=== PATIENT | female | born 1955 | race Caucasian/White ===

== ENCOUNTER → 2017-01-17 | Outpatient (CLI) | payer MEDICARE ==
[~2017-01-17] MED LIST: CLON-378 PO; CLON0.3T4 PO; CLON1PAT22; CLON2TAB16 PO; DCS100C PO; DOCU100T7 PO; GBPN400C PO; HYDR25CA5 PO; LISI5TAB; METH10TA3 PO; METH20CP; METH20TA PO; MGCT300B PO; POLY119P PO; PREN1TAB83 PO; QUET200T PO; QUET400T PO; QUET400T3 PO; ROPI3TAB; SERT25TA; TRAM50TA2 PO; TRAZ150T42 PO; ZOLP10TA; ZPR20C; ZPR40C PO
[2017-01-17 10:20] LABS: MEAN PLATELET VOLUME 9.2 FL (7.4-10.4); RED BLOOD COUNT 4.64 10^6/uL (4.35-5.85); WHITE BLOOD COUNT 10.2 10^3/uL (4.3-11.0)
[2017-01-17 10:41] LABS: ALANINE AMINOTRANSFERASE 34 U/L (0-55); ALBUMIN 4.1 GM/DL (3.2-4.5); ANION GAP 8 MMOL/L (5-14); ASPARTATE AMINO TRANSFERASE 23 U/L (5-34); BILIRUBIN,TOTAL 0.2 MG/DL (0.1-1.0); BLOOD UREA NITROGEN 24 MG/DL (7-18); BUN/CREATININE RATIO 31; CALCIUM 9.5 MG/DL (8.5-10.1); CARBON DIOXIDE 21 MMOL/L (21-32); CHLORIDE 108 MMOL/L (98-107); CHOLESTEROL 164 MG/DL (< 200); CREATININE SERUM 0.77 MG/DL (0.60-1.30); DIRECT LDL 46 MG/DL (1-129); GFR ESTIMATED > 60; GLUCOSE 92 MG/DL (70-105); POTASSIUM 4.4 MMOL/L (3.6-5.0); SODIUM 137 MMOL/L (135-145); TRIGLYCERIDES 150 MG/DL (<150); VLDL CHOLESTEROL 30 MG/DL (5-40)
== END ==
LOC: LAB 09:41
DX: F31.71 Bipolar disorder, in partial remission, most recent episode hypomanic (principal)
CPT/HCPCS: 36415; 80053; 80061; 83036; 85027

== ENCOUNTER 2017-03-22 05:52 | Emergency (ER) | payer MEDICARE ==
[~2017-03-22] VITALS: Ht 172.7 cm; Wt 77.1 kg
--- OUTSIDE RECORDS SUMMARY | 2017-03-22 05:57 | XMS REPORT ---
Author Author JAJA HALE Organization [employer] Address Unknown Phone Unavailable Care Team Providers Care Stockroom Clerk Name Role Phone JAJA HALE CP Unavailable Allergies No Known Allergies Problems Problem Type Condition Code Onset Dates Condition Status Problem H/O laminectomy Z98.89 Active Problem Personal history of tobacco use, presenting hazards to health V15.82 Active Problem Unspecified vitamin D deficiency 268.9 Active Problem Unspecified drug dependence, unspecified abuse 304.90 Active Problem Nondependent cannabis abuse, unspecified 305.20 Active Problem Attention deficit disorder of childhood without mention of hyperactivity 314.00 Active Problem Chronic hepatitis C without mention of hepatic coma 070.54 Active Problem Bipolar I disorder, most recent episode (or current) manic, in full remission 296.46 Active Medications Medication Code System Code Instructions Start Date End Date Status Dosage Gabapentin [facility] [address]-09 250 MG/5ML Orally 3 times a day 24 mL Results No Known Results Summary Purpose [employer]Works Submission
--- OUTSIDE RECORDS SUMMARY | 2017-03-22 05:57 | XMS REPORT ---
Author Author JAJA HALE Organization [employer] Address Unknown Phone Unavailable Care Team Providers Care Game Protector Name Role Phone JAJA AHLE CP Unavailable Allergies No Known Allergies Problems Problem Type Condition ICD-9 Code Onset Dates Condition Status Problem Personal history of tobacco use, presenting [...] manic, in full remission 296.46 Active Medications No Known Medications Results No Known Results Summary Purpose [employer] Submission
--- OUTSIDE RECORDS SUMMARY | 2017-03-22 05:57 | XMS REPORT ---
Author Author JAJA HALE Organization [facility] Address [address] [place] [address] Care Team Providers Care Tools Developer Name Role Phone JAJA HALE Unavailable PROBLEMS Type Condition ICD9-CM Code [id number] Code Onset Dates Condition Status SNOMED Code Problem H/O laminectomy Z98.89 Active 165065815 Problem Cannabis abuse F12.10 Active 25590446 Problem Attention deficit R41.840 Active 49289044 Problem Bipolar disorder, in partial remission, most recent episode hypomanic F31.71 Active 648265035 Problem Attention deficit hyperactivity disorder (ADHD), combined type F90.2 Active 06796993 Problem Chronic hepatitis C without hepatic coma B18.2 Active 326681359 Problem Bipolar 1 disorder F31.9 Active 970467647 Problem Anxiety disorder, unspecified type F41.9 Active 105855610 Problem Other chronic pain G89.29 Active 51194757 ALLERGIES Substance Reaction Event Type Date Status Zyprexa Unknown Drug Allergy Jun, Active Amitiza Unknown Non Drug Allergy Jun, Active Hydrocodone Failed UDS (opiates, & THC) Non Drug Allergy Jun, Active Benzodiazepines Failed UDS (opiates, & THC) Non Drug Allergy Jun, Active SOCIAL HISTORY No smoking Hx information available PLAN OF CARE Activity Details Follow Up prn Reason: VITAL SIGNS Height 69 in 2016-06-15 Weight 194 lbs 2016-06-15 Temperature 98.2 degrees Fahrenheit 2016-06-15 Heart Rate 80 bpm 2016-06-15 Respiratory Rate 18 2016-06-15 BMI 28.65 kg/m2 2016-06-15 Blood pressure systolic 110 mmHg 2016-06-15 Blood pressure diastolic 70 mmHg 2016-06-15 MEDICATIONS Medication Instructions Dosage Frequency Start Date End Date Duration Status Prazosin HCl 5 MG Orally Once a day 1 capsule at bedtime 24h Active Gabapentin 800 MG Orally 4 times a day 1 tablet 6h Active Quad Cane N/A as directed Jan, Active Adderall 10 mg Orally 3 times a day 1 tablet 8h Active Valium 5 MG Orally Twice a day 1 tablet as needed 12h Active Seroquel 400 mg 2 tablet by Oral route 1 time per day at bedtime (Take with 200mg) Jul, Active HydrOXYzine HCl 50 mg Orally 3 times a day 1 tablet as needed 8h 30 days Active RESULTS No Results PROCEDURES Procedure Date Ordered Related Diagnosis Body Site [facility] VISIT ESTABLISHED PATIENT Jun 15, 2016 Office Visit, Est Pt., Level 3 Jun 15, 2016 IMMUNIZATIONS No Known Immunizations
--- OUTSIDE RECORDS SUMMARY | 2017-03-22 05:57 | XMS REPORT ---
Author Author JAJA HALE Organization [employer] Address Unknown Phone Unavailable Care Team Providers Care Electrical Tester Battery Name Role Phone JAJA HALE CP Unavailable Allergies No Known Allergies Problems Problem Type Condition ICD-9 Code Onset Dates Condition Status Problem Encounter for long-term (current) use of other medications V58.69 Active Problem Unspecified vitamin D deficiency 268.9 Active Problem Chronic hepatitis C without mention of hepatic coma 070.54 Active Problem Acute bronchitis 466.0 Active Problem Cough 786.2 Active Problem Other and unspecified noninfectious gastroenteritis and colitis 558.9 Active Problem Allergic rhinitis due to pollen 477.0 Active Problem Unspecified constipation 564.00 Active Problem Disturbance of skin sensation 782.0 Active Problem Other, multiple, and unspecified sites, insect bite, nonvenomous, without mention of infection 919.4 Active Problem Unspecified drug dependence, unspecified abuse 304.90 Active Problem Personal history of tobacco use, presenting hazards to health V15.82 Active Problem Nausea with vomiting 787.01 Active Problem Bipolar I disorder, most recent episode (or current) manic, unspecified 296.40 Active Problem Restless legs syndrome [RLS] 333.94 Active Problem Attention deficit disorder of childhood without mention of hyperactivity 314.00 Active Problem Allergic rhinitis, cause unspecified 477.9 Active Problem Bipolar I disorder, most recent episode (or current) manic, in full remission 296.46 Active Problem Nondependent cannabis abuse, unspecified 305.20 Active Problem Blood in stool 578.1 Active Problem Abnormal weight gain 783.1 Active Problem Pain in joint, pelvic region and thigh 719.45 Active Medications Medication Code System Code Instructions Start Date End Date Status Dosage Quad Cane NDC 0 N/A Feb 26, 2015 as directed Results No Known Results Summary Purpose eClinicalWorks Submission
--- OUTSIDE RECORDS SUMMARY | 2017-03-22 05:58 | XMS REPORT ---
Author Author JAJA HALE [facility] e[employer] Address Unknown Phone Unavailable Care Team Providers Care Director Business Integration Name Role Phone JAAJ HALE CP Unavailable Allergies, Adverse Reactions, Alerts Substance Reaction Event Type Zyprexa Info Not Available Drug Allergy Amitiza Info Not Available Non Drug Allergy Hydrocodone Failed UDS (opiates, & THC) Non Drug Allergy Benzodiazepines Failed UDS (opiates, & THC) Non Drug Allergy Problems Problem Type Condition Code Onset Dates Condition Status Assessment Encounter for immunization Z23 Active Assessment Eustachian tube dysfunction, unspecified laterality H69.80 Active Assessment Hot flashes N95.1 Active Problem Personal history of tobacco use, [...] Instructions Start Date End Date Status Dosage Flonase [facility] [address]-48 50 MCG/DOSE Nasally 2 times a day Apr 21, 2015 1 spray in each nostril Valium [facility] [address]-73 5 MG Orally Twice a day 1 tablet as needed Prazosin HCl [facility] [address]-11 5 MG Orally Twice a day 1 capsule Methylphenidate HCl [facility] [address]-11 20 MG Orally 3 times a day qAM 1500 and HS FILL ON OR AFTER 10/18/14 supervisor ride assembly by [facility] staff for 7 day sr. merchandise planner November 13, 2014 1 tablet Quad Cane [facility] 0 N/A Feb 26, 2015 as directed Gabapentin [facility] [address]-89 400 mg Jun 30, 2014 3 Capsule 3 times per day Latuda [facility] [address]-78 60 MG Orally Once a day 1 tablet with food HydrOXYzine HCl [facility] 06367326788 50 MG TAKE ONE TABLET BY MOUTH THREE TIMES DAILY Procedures Procedure Coding System Code Date SINGLE IMMUNIZATION ADMIN CPT-4 29555 Apr 21, 2015 [facility] VISIT ESTABLISHED PATIENT CPT-4 G0467 Apr 21, 2015 FLUARIX QUAD (3 & UP)-GSK-2014 CPT-4 48058 Apr 21, 2015 Office Visit, Est Pt., Level 3 CPT-4 69325 Apr 21, 2015 Vital Signs Date/Time: Apr 21, 2015 Temperature 97.6 F Weight 192.8 lbs Height 69 in BMI 28.47 Index Blood Pressure Diastolic 86 mmHg Blood Pressure Systolic 136 mmHg Cardiac Monitoring Heart Rate 76 bpm Results No Known Results Immunizations Vaccine Administration Date FLUARIX QUAD (3 & UP)-GSK-2014Apr 21, 2015 Summary Purpose eClinicalWorks Submission
--- OUTSIDE RECORDS SUMMARY | 2017-03-22 05:58 | XMS REPORT ---
Author Author JAJA HALE Organization [employer] Address Unknown Phone Unavailable Care Team Providers Care Traveling Sales Executive Name Role Phone JAJA HALE CP Unavailable [...] Instructions Start Date End Date Status Dosage Adderall [facility] [address]-40 10 mg Orally 3 times a day 1 tablet Prazosin HCl [facility] [address]-79 5 MG Orally Once a day 1 capsule at bedtime Seroquel [facility] [address]-19 400 MG Orally Once a day 2 tablets at bedtime Valium [facility] [address]-74 5 MG Orally Twice a day 1 tablet as needed Results No Known Results Summary Purpose [employer]ClinicalWorks Submission
--- OUTSIDE RECORDS SUMMARY | 2017-03-22 05:58 | XMS REPORT ---
Author Author JAJA HALE Organization [employer] Address Unknown Phone Unavailable Care Team Providers Care Hand Bunch Maker Name Role Phone JAJA HALE CP Unavailable [...]
--- OUTSIDE RECORDS SUMMARY | 2017-03-22 05:58 | XMS REPORT ---
Author Author JAJA HALE [facility] Address [address] [place] [address] Care Team Providers Care Supplemental Nurse Name Role Phone JAJA HALE Unavailable PROBLEMS Type Condition ICD9-CM Code [id number] Code Onset Dates Condition Status SNOMED Code Problem H/O laminectomy Z98.89 Active 188024135 Problem Cannabis abuse F12.10 Active 03482334 Problem Attention deficit R41.840 Active 84786431 Problem Bipolar disorder, in partial remission, most recent episode hypomanic F31.71 Active 068856894 Problem Attention deficit hyperactivity disorder (ADHD), combined type F90.2 Active 43902376 Problem Chronic hepatitis C without hepatic coma B18.2 Active 900249038 Problem Bipolar 1 disorder F31.9 Active 039972127 Problem Anxiety disorder, unspecified type F41.9 Active 125243923 Problem Other chronic pain G89.29 Active 27735622 ALLERGIES Unknown Allergies SOCIAL HISTORY No smoking Hx information available PLAN OF CARE VITAL SIGNS MEDICATIONS Unknown Medications RESULTS No Results PROCEDURES No Known procedures IMMUNIZATIONS No Known Immunizations
--- OUTSIDE RECORDS SUMMARY | 2017-03-22 05:58 | XMS REPORT ---
Author Author JAJA HALE [facility] Address [address] [place] [address] Care Team Providers Care Bike Technician Name Role Phone JAJA HALE Unavailable PROBLEMS Type Condition ICD9-CM Code EFF65-MY Code Onset Dates Condition Status SNOMED Code Problem Attention deficit disorder of childhood without mention of hyperactivity 314.00 Active 38120398 Problem H/O laminectomy Z98.89 Active 282949391 Problem Unspecified drug dependence, unspecified abuse 304.90 Active 291360067 Problem Personal history of tobacco use, presenting hazards to health V15.82 Active 6824033778112 Problem Bipolar I disorder, most recent episode (or current) manic, in full remission 296.46 Active 654160069 Problem Nondependent cannabis abuse, unspecified 305.20 Active 427958636 Problem Unspecified vitamin D deficiency 268.9 Active 98487704 Problem Chronic hepatitis C without mention of hepatic coma 070.54 Active 816264335 ALLERGIES Unknown Allergies SOCIAL HISTORY No smoking Hx information available PLAN OF CARE VITAL SIGNS MEDICATIONS Medication Instructions Dosage Frequency Start Date End Date Duration Status HydrOXYzine HCl 50 mg Orally 3 times a day 1 tablet as needed 8h 30 days Active Gabapentin 250 MG/5ML Orally 3 times a day 24 mL 8h 30 days Active RESULTS No Results PROCEDURES No Known procedures IMMUNIZATIONS No Known Immunizations
--- OUTSIDE RECORDS SUMMARY | 2017-03-22 05:58 | XMS REPORT ---
Author Author JAJA HALE [facility] Address [address] [place] [address] Care Team Providers Care Manager Call Center Name Role Phone JAJA HALE Unavailable PROBLEMS Type Condition ICD9-CM Code [id number] Code Onset Dates Condition Status SNOMED Code Problem Attention deficit disorder of childhood without mention of hyperactivity 314.00 Active 03754240 Problem H/O laminectomy Z98.89 Active 671264345 Problem Unspecified drug dependence, unspecified abuse 304.90 Active 282636988 Problem Personal history of tobacco use, presenting hazards to health V15.82 Active 4247879330965 Problem Bipolar I disorder, most recent episode (or current) manic, in full remission 296.46 Active 359225688 Problem Nondependent cannabis abuse, unspecified 305.20 Active 700048404 Problem Unspecified vitamin D deficiency 268.9 Active 35818452 Problem Chronic hepatitis C without mention of hepatic coma 070.54 Active 905123852 ALLERGIES Unknown Allergies SOCIAL HISTORY No smoking Hx information available PLAN OF CARE VITAL SIGNS MEDICATIONS Medication Instructions Dosage Frequency Start Date End Date Duration Status Gabapentin 800 MG Orally 4 times a day 1 tablet 6h Active RESULTS No Results PROCEDURES No Known procedures IMMUNIZATIONS No Known Immunizations
--- OUTSIDE RECORDS SUMMARY | 2017-03-22 05:58 | XMS REPORT ---
Author Author JAJA HALE Organization [employer] Address Unknown Phone Unavailable Care Team Providers Care Supervisor Waterproofing Name Role Phone JAJA HALE CP Unavailable [...]
--- OUTSIDE RECORDS SUMMARY | 2017-03-22 05:58 | XMS REPORT ---
Author Author JAJA HALE Organization [employer] Address Unknown Phone Unavailable Care Team Providers Care Lightning Rod Erector Name Role Phone JAJA HALE CP Unavailable [...] Instructions Start Date End Date Status Dosage Valium [facility] [address]-88 5 MG Orally Twice a day 1 tablet as needed Prazosin HCl [facility] [address]-47 5 MG Orally Once a day 1 capsule at bedtime Seroquel [facility] [address]-35 400 MG Orally Once a day 2 Adderall [facility] [address]-77 10 mg Orally 3 times a day 1 tablet in the morning Results No Known Results Summary Purpose eClinicalWorks Submission
[2017-03-22 06:43] LABS: BILIRUBIN,URINE NEGATIVE (NEGATIVE); KETONES,URINE NEGATIVE (NEGATIVE); LEUKOCYTE ESTERASE ,URINE 2+ (NEGATIVE); NITRITE,URINE NEGATIVE (NEGATIVE); PH,URINE 5 (5-9); PROTEIN,URINE NEGATIVE (NEGATIVE); UROBILINOGEN,URINE NORMAL (NORMAL)
[2017-03-22 06:46] LABS: BASOPHILS # (AUTO) 0.1 10^3/uL (0.0-0.1); BASOPHILS % (AUTO) 0 % (0-10); EOSINOPHILS # (AUTO) 0.1 10^3/uL (0.0-0.3); EOSINOPHILS % (AUTO) 1 % (0-10); LYMPHOCYTES # (AUTO) 3.8 X 10^3 (1.0-4.0); LYMPHOCYTES % (AUTO) 32 % (12-44); MEAN CORPUSCULAR HEMOGLOBIN 32 PG (25-34); MEAN CORPUSCULAR HGB CONC 35 G/DL (32-36); MEAN CORPUSCULAR VOLUME 93 FL (80-99); MEAN PLATELET VOLUME 9.1 FL (7.4-10.4); MONOCYTES # (AUTO) 0.9 X 10^3 (0.0-1.0); MONOCYTES % (AUTO) 8 % (0-12); NEUTROPHILS % (AUTO) 59 % (42-75); PLATELET COUNT 434 10^3/uL (130-400); RED BLOOD COUNT 4.55 10^6/uL (4.35-5.85); RED CELL DISTRIBUTION WIDTH 12.9 % (10.0-14.5); WHITE BLOOD COUNT 11.9 10^3/uL (4.3-11.0)
[2017-03-22 06:59] LABS: WBC,URINE 0-2 /HPF
[2017-03-22 07:06] LABS: ALANINE AMINOTRANSFERASE 31 U/L (0-55); ALBUMIN 4.1 GM/DL (3.2-4.5); ALCOHOL < 10 MG/DL (<10); ANION GAP 12 MMOL/L (5-14); ASPARTATE AMINO TRANSFERASE 20 U/L (5-34); BILIRUBIN,TOTAL 0.2 MG/DL (0.1-1.0); BLOOD UREA NITROGEN 20 MG/DL (7-18); BUN/CREATININE RATIO 24; CARBON DIOXIDE 19 MMOL/L (21-32); CHLORIDE 105 MMOL/L (98-107); CREATININE SERUM 0.85 MG/DL (0.60-1.30); GFR ESTIMATED > 60; GLUCOSE 126 MG/DL (70-105); POTASSIUM 4.6 MMOL/L (3.6-5.0); SALICYLATE < 5.0 MG/DL (5.0-20.0); SODIUM 136 MMOL/L (135-145); TOTAL PROTEIN 7.2 GM/DL (6.4-8.2)
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
[2017-03-22 07:11] LABS: ACETAMINOPHEN < 10 UG/ML (10-30)
[2017-03-22 07:38] VITALS: BP 130/77
== END 2017-03-22 07:38 | disposition home or self-care (01) ==
LOC: EDUNIT# 05:52 → ER 05:54
DX: F90.9 Attention-deficit hyperactivity disorder, unspecified type; I10 Essential (primary) hypertension; F60.0 Paranoid personality disorder; F12.10 Cannabis abuse, uncomplicated; J44.9 Chronic obstructive pulmonary disease, unspecified; F41.9 Anxiety disorder, unspecified; R41.82 Altered mental status, unspecified; F32.9 Major depressive disorder, single episode, unspecified; Z87.19 Personal history of other diseases of the digestive system; F17.210 Nicotine dependence, cigarettes, uncomplicated
CPT/HCPCS: 36415; 80053; 80306; 80320; 80329; 81000; 84443; 85025; 93041

== ENCOUNTER 2018-08-08 05:34 | Emergency (ER) | payer MEDICARE ==
[~2018-08-08] VITALS: Ht 172.7 cm; Wt 77.1 kg
[2018-08-08] MEDS ORDERED: KETOROLAC 30 MG/ML VIAL IM ONE (06:00)
[2018-08-08] MEDS ORDERED: ORPHENADRINE 60 MG/2 ML (NORFLEX) AMP IM ONE (06:00)
[2018-08-08 06:15] VITALS: BP 0/0
--- NOTE | 2018-08-08 06:15 | NUR ---
PT STATED UPON ARRIVAL THAT SHE WAS DEAF AND TO SPEAK LOUD, EVERY TIME TALKING WITH PT SHE WOULD ASK TO RAISE VOICE SO SHE COULD HEAR. THIS RN DRAWING UP IM INJECTION MEDICATIONS AT [facility] AND PT ASKING QUESTIONS. UPON TRYING TO ANSWER PT STATES, "STOP SCREAMING AT ME!". PT CONTINUES TO YELL "GIVE ME MY INJECTIONS THEN I'M LEAVING BECAUSE YOU'RE SCREAMING AT ME!" DR. MCDONALD CAME IN TO ROOM, PT ARGUING WITH DR. AT THIS TIME THIS KNOTTER HAND/RN LEFT THE ROOM. SOON AFTER DR. MCDONALD LEFT ROOM. PT JUMPED OUT OF BED AND USING WALKER SHE BROUGHT WITH HER BEGAN WALKING TOWARDS EXIT, THEN ASKING FOR HER PAIN MEDICATIONS. MEDICATIONS HAD ALREADY BEEN WASTED PT REFUSED THEM AND THEN LEFT AMA FROM THE ROOM TOWARDS THE ED EXIT. SEE DR. MCDONALD'S NOTE FOR FURTHER DETAILS.
--- NOTE | 2018-08-08 06:20 | ED Back Pain ---
General Chief Complaint: Back Problems Stated Complaint: BACK PAIN Source of Information: Patient, EMS Exam Limitations: No Limitations History of Present Illness Date Seen by Provider: Aug 08, 2018 Time Seen by Provider: 05:35 Initial Comments This 63-year-old woman presents to the emergency room with chronic back pain that she has had for about 2 and half years since having surgery. She reports tonight her pain is worse and she is having shooting pains. She states this is "spinal cord pain" and not a muscle pain. Pain radiates toward the left leg. She is ambulatory with her walker for EMS. Patient is requesting imaging for her back to explain why her surgery done 2-1/2 years ago has caused her pain. Allergies and Home Medications Allergies Coded Allergies: haloperidol (Unverified Allergy, Intermediate, 04/23/09) alcohol (Unverified Adverse Reaction, "FLIP OUT", 03/21/10) Home Medications Polyethylene Glycol 119 Gm Btl, 0 PO DAILY 17 GM Prescribed by: GEOVANY TA on 06/16/13 2332 Quetiapine Fumarate 400 Mg Tablet, 800 MG PO HS, (Reported) TAKES 2 (400MG) TABLETS AT BEDTIME Tramadol Hcl 50 Mg Tablet, 50 MG PO Q6H Prescribed by: GEOVANY TA on 06/16/13 2331 Patient Home Medication List Home Medication List Reviewed: Yes Review of Systems Constitutional: no symptoms reported EENTM: no symptoms reported Respiratory: no symptoms reported Cardiovascular: no symptoms reported Gastrointestinal: no symptoms reported Genitourinary: no symptoms reported : No Musculoskeletal: see HPI Skin: no symptoms reported Psychiatric/Neurological: See HPI Past Omueqlf-Ovnnox-Ahgbyy Hx Past Med/Social Hx: Reviewed and Corrections made Patient Social History Alcohol Use: Denies Use Recreational Drug Use: No (SMOKES 1PPD) Drug of Choice: smokes joints Type Used: Cigarettes 2nd Hand Smoke Exposure: Yes Recent Hopitalizations: No Immunizations Up To Date Date of Influenza Vaccine: May 03, 2013 Seasonal Allergies Seasonal Allergies: No Past Medical History Surgeries: Yes Orthopedic Respiratory: Yes COPD Cardiac: Yes Hypertension Neurological: No 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 ) ADD/ADHD, Anxiety, Depression Integumentary: No Blood Disorders: No Adverse Reaction/Blood Tranf: No Family Medical History History of drug abuse Psychotic disorder Psychiatric Problems Physical Exam Vital Signs Capillary Refill : Height, Weight, BMI Height: 5'8.00" Weight: 170lbs. 0.0oz. 77.267378lm; 24.36 BMI Method:Stated General Appearance: WD/WN, Mild Distress HEENT: PERRL/EOMI, Normal ENT Inspection Neck: Normal Inspection Cardiovascular: Regular Rate, Rhythm, No Edema, No Murmur Respiratory: Lungs Clear, Normal Breath Sounds, No Accessory Muscle Use Gastrointestinal: Non Tender, Soft Extremity: Normal Inspection, No Pedal Edema Neurologic/Psychiatric: Alert, Other (patient is able to move all 4 extremities. Strength in the left lower extremity is slightly weaker than the right. Patient is irritable.) Skin: Normal Color, Warm/Dry Progress/Results/Core Measures Results/Orders My Orders Orders - VITA MCDONALD MD Orphenadrine Injection (Norflex Injectio (08/08/18 06:00) Ketorolac Injection (Toradol Injection) (08/08/18 06:00) Progress Progress Note : Time: 06:16 Progress Note Patient was offered Toradol and Norflex injections for her back pain. While nursing staff was preparing her injections, patient became upset that nursing staff was yelling at her. It is actually necessary to yell at the patient because she cannot hear our voices at normal volumes. Patient was very accusatory to nursing staff and myself regarding the volume of our voices stating that we were disrespectful to her because we were yelling at her. Patient would not stop arguing with us about this which was impairing her ability to provide the injections. I told the patient she could have her injections when she stopped yelling and arguing. I left the room as patient would not stop yelling at me. Patient then hopped out of the elevated bed that had rails up with no difficulty, grabbed her walker, and said she was leaving. Her injections were then disposed of in the sharps container. Once patient reached the door, she turned around and asked for her shots. I informed her they were already disposed of. She then walked out of the ER in a brisk fashion crying. Patient left without receiving injections or discharge instructions. Initial ECG Impression Date: Aug 08, 2018 Initial ECG Impression Time: 06:11 Initial ECG Rate: 100 Initial ECG Rhythm: S.Tach Comment Sinus tachycardia with no ST elevation or depression. No abnormal intervals or axis deviation. Departure Impression Primary Impression: Lower back pain Qualified Codes: M54.42 - Lumbago with sciatica, left side Disposition: 01 HOME, SELF-CARE Condition: Stable Departure-Patient Inst. Referrals: CHAZ MCDONALD DO (PCP) Primary Care Physician JAJA HALE (Family) Primary Care Physician VITA MCDONALD MD Aug 08, 2018 06:20
== END 2018-08-08 06:15 | disposition left against medical advice (07) ==
LOC: EDUNIT# 05:34 → ER 05:35
DX: M54.5 Low back pain (principal); J44.9 Chronic obstructive pulmonary disease, unspecified; I10 Essential (primary) hypertension; F90.9 Attention-deficit hyperactivity disorder, unspecified type; F98.8 Other specified behavioral and emotional disorders with onset usually occurring in childhood and adolescence; F41.9 Anxiety disorder, unspecified; F32.9 Major depressive disorder, single episode, unspecified; F12.10 Cannabis abuse, uncomplicated; Z87.19 Personal history of other diseases of the digestive system; Z88.8 Allergy status to other drugs, medicaments and biological substances; Z77.22 Contact with and (suspected) exposure to environmental tobacco smoke (acute) (chronic)
CPT/HCPCS: 99283

== ENCOUNTER 2020-01-25 12:16 | Emergency (ER) | payer MEDICARE ==
[~2020-01-25] VITALS: Ht 176 cm; Wt 94.0 kg
--- OUTSIDE RECORDS SUMMARY | 2020-01-25 12:23 | XMS REPORT ---
Author Author Ana Iraheta Organization [facility] Address [address] [place] [address] Care Team Providers Care Record Label Intern Name Role Phone MELISA Iraheta Unavailable PROBLEMS Type Condition ICD9-CM Code [id number] Code Onset Dates Condition S tatus SNOMED Code Problem Chronic hepatitis C without hepatic coma B18.2 Active 248161335 Problem Cannabis abuse F12.10 Active 66520 009 Problem Bipolar 1 disorder F31.9 Active 3 37593352 Problem Attention deficit hyperactivity disorder (ADHD), combi luciano type F90.2 Active 77353479 Problem Attention deficit R41.840 Active 76 437965 Problem Hot flashes due to menopause N95.1 A ctive 222075617 Problem H/O laminectomy Z98.89 Active 1616 30574 Problem Other chronic pain G89.29 Active 8 8553629 Problem Anxiety disorder, unspecified type F41.9 Active 343792756 Problem Bipolar disorder, in partial remission, most rec ent episode hypomanic F31.71 Active 704407174 ALLERGIES No Information ENCOUNTERS Encounter Location Date Diagnosis [place] [id number] [place] [address] Aug, [facility] [address] [address] Jul, [facility] [address] [address] Jul, [place] [address] [address] Apr, [place] [address] [address] Mar, Hot flashes due to menopause N95.1 ; Anx iety disorder, unspecified type F41.9 ; Low back pain M54.5 and Encounter for immunization Z23 [facility] [address] [address] Dec, Other chronic pain G89.29 and Low back p ain M54.5 [facility] [address] [address] October, [facility] [address] [address] October, [facility] [address] [address] October, [facility] [address] [address] October, Other chronic pain G89.29 and Chronic he patitis C without hepatic coma B18.2 [facility] [address] [address] Aug, Bipolar disorder, in partial remission, most recent episode hypomanic F31.71 ; Attention deficit hyperactivity disorder (ADHD), combined type F90.2 and Anxiety disorder, unspecified type F41.9 [facility] [address] [address] Aug, [place] [address] [address] Aug, Bipolar disorder, in partial remission, most recent episode hypomanic F31.71 [facility] [address] [address] Aug, [facility] [address] [address] Aug, Bipolar disorder, in partial remission, most recent episode hypomanic F31.71 [place] [address] [address] Aug, Bipolar disorder, in partial remission, most recent episode hypomanic F31.71 ; Attention deficit hyperactivity disorder (ADHD), combined type F90.2 and Anxiety disorder, unspecified type F41.9 [facility] [id number] [place] [address] Aug, Low back pain M54.5 and Pain in left wri st M25.532 [facility] [address] [id number] [place] [address] Aug, [facility] [address] [id number] [place] [address] Jun, [facility] [id number] [place] [address] Apr, Bipolar disorder, in partial remission, most recent episode hypomanic F31.71 [facility] [id number] [place] [address] Apr, [facility] [id number] [place] [address] Apr, Bipolar disorder, in partial remission, most recent episode hypomanic F31.71 ; Attention deficit hyperactivity disorder (ADHD), combined type F90.2 ; Anxiety disorder, unspecified type F41.9 and Other retirement (current) 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 Z79.899 [facility] [id number] [place] [address] Apr, Bipolar disorder, in partial remission, most recent episode hypomanic F31.71 [facility] [address] [id number] [place] [address] Apr, Bipolar disorder, in partial remission, most recent episode hypomanic F31.71 [facility] [id number] [place] [address] Mar, [facility] [id number] [place] [address] Mar, Bipolar disorder, in partial remission, most recent episode hypomanic F31.71 ; Encounter for immunization Z23 and Low back pain M54.5 [facility] [address] [id number] [place] [address] Mar, Bipolar disorder, in partial remission, most recent episode hypomanic F31.71 [facility] [id number] [place] [address] Mar, Bipolar disorder, in partial remission, most recent episode hypomanic F31.71 [facility] [address] [id number] [place] [address] Jan, Bipolar disorder, in partial remission, most recent episode hypomanic F31.71 [facility] [address] [id number] [place] [address] Jan, Bipolar disorder, in partial remission, most recent episode hypomanic F31.71 [facility] [id number] [place] [address] Dec, Bipolar disorder, in partial remission, most recent episode hypomanic F31.71 [facility] [id number] [place] [address] Dec, Bipolar disorder, in partial remission, most recent episode hypomanic F31.71 ; Attention deficit hyperactivity disorder (ADHD), combined type F90.2 ; Anxiety disorder, unspecified type F41.9 and Other retirement (current) 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 Z79.899 [facility] [id number] [place] [address] Dec, Bipolar disorder, in partial remission, most recent episode hypomanic F31.71 [facility] [address] [id number] [place] [address] Dec, Bipolar disorder, in partial remission, most recent episode hypomanic F31.71 [facility] [id number] [place] [address] October, Bipolar disorder, in partial remission, most recent episode hypomanic F31.71 [facility] [address] [id number] [place] [address] October, [facility] [address] [id number] [place] [address] October, [facility] [address] [id number] [place] [address] Oct, Bipolar disorder, in partial remission, most recent episode hypomanic F31.71 ; Attention deficit hyperactivity disorder (ADHD), combined type F90.2 ; Anxiety disorder, unspecified type F41.9 and Encounter for drug screening Z02.83 [facility] [id number] [place] [address] Oct, Bipolar disorder, in partial remission, most recent episode hypomanic F31.71 [facility] [id number] [place] [address] Oct, Bipolar disorder, in partial remission, most recent episode hypomanic F31.71 [facility] [id number] [place] [address] Aug, Bipolar disorder, in partial remission, most recent episode hypomanic F31.71 [facility] [id number] [place] [address] Aug, Bipolar disorder, in partial remission, most recent episode hypomanic F31.71 [facility] [id number] [place] [address] Aug, Bipolar disorder, in partial remission, most recent episode hypomanic F31.71 [facility] [id number] [place] [address] Jul, Bipolar disorder, in partial remission, most recent episode hypomanic F31.71 ; Attention deficit hyperactivity disorder (ADHD), combined type F90.2 and Anxiety disorder, unspecified type F41.9 [facility] [id number] [place] [address] Jul, Bipolar disorder, in partial remission, most recent episode hypomanic F31.71 [facility] [id number] [place] [address] Jun, Bipolar disorder, in partial remission, most recent episode hypomanic F31.71 [facility] [id number] [place] [address] May, Bipolar disorder, in partial remission, most recent episode hypomanic F31.71 [facility] [id number] [place] [address] May, Bipolar disorder, in partial remission, most recent episode hypomanic F31.71 [facility] [address] [address] Apr, [facility] [address] [address] Apr, Bipolar disorder, in partial remission, most recent episode hypomanic F31.71 ; Attention deficit hyperactivity disorder (ADHD), combined type F90.2 ; Anxiety disorder, unspecified type F41.9 and Cannabis abuse F12.10 [facility] [address] [address] Apr, Attention deficit hyperactivity disorder (ADHD), combined type F90.2 [place] [address] [address] Mar, Attention deficit hyperactivity disorder (ADHD), combined type F90.2 [place] [address] [address] Mar, Anxiety disorder, unspecified type F41.9 [facility] [address] [address] Jan, Attention deficit hyperactivity disorder (ADHD), combined type F90.2 [facility] [address] [address] Jan, Anxiety disorder, unspecified type F41.9 [place] [address] [address] Jan, Other chronic pain G89.29 ; Chronic hepa titis C without hepatic coma B18.2 and Bipolar 1 disorder F31.9 [facility] [address] [address] Dec, Attention deficit hyperactivity disorder (ADHD), combined type F90.2 [facility] [address] [address] Dec, Bipolar disorder, in partial remission, most recent episode hypomanic F31.71 ; Attention deficit hyperactivity disorder (ADHD), combined type F90.2 and Anxiety disorder, unspecified type F41.9 [place] [address] [address] Dec, Bipolar disorder, in partial remission, most recent episode hypomanic F31.71 ; Attention deficit hyperactivity disorder (ADHD), combined type F90.2 and Anxiety disorder, unspecified type F41.9 [place] [address] [address] Dec, Bipolar 1 disorder F31.9 and Attention d eficit R41.840 [place] [address] [address] Oct, Other chronic pain G89.29 ; Alopecia L65 .9 and Screening, lipid Z13.220 [place] [address] [address] Oct, [place] [address] [address] Aug, [place] [address] [address] Aug, Eustachian tube dysfunction, right H69.8 1 ; Vertigo R42 and Other chronic pain G89.29 [place] [address] [address] Aug, [place] [address] [address] Jun, [place] [address] [address] Jun, Low back pain M54.5 and Other chronic pa in G89.29 [place] [address] [address] Jun, [place] [address] [address] May, [place] [address] [address] Jan, [facility] [address] [address] Dec, [facility] [address] [address] Dec, [facility] [address] [address] Jun, [facility] [address] [address] Apr, Eustachian tube dysfunction, unspecified laterality H69.80 ; Hot flashes N95.1 and Encounter for immunization Z23 [facility] [address] [address] Jan, [facility] [address] [address] Jan, [facility] [address] [address] Jan, [facility] [address] [address] Jan, [facility] [address] [address] Jan, Encounter to establish care V65.8 ; Bipo lar 1 disorder 296.7 ; Abdominal pain 789.00 ; Constipation 564.00 ; Hard of hearing 389.9 and Drug abuse 305.90 [facility] [address] [address] Dec, [facility] [address] [address] October, [facility] [address] [address] October, [facility] [address] [address] Oct, [facility] [address] [address] Oct, [facility] [place] [facility] [address] [id number] [place] [address] Oct, [facility] [place] [facility] [address] [id number] [place] [address] Aug, [facility] [place] [facility] [address] [id number] [place] [address] Aug, [facility] [place] [facility] [address] [id number] [place] [address] Aug, [facility] [place] [facility] [address] [id number] [place] [address] Aug, 2014 [facility] [place] [facility] [address] [id number] [place] [address] Aug, 2014 [facility] [place] [facility] [address] [id number] [place] [address] Aug, 2014 [facility] [place] [facility] [address] [id number] [place] [address] Aug, 2014 [facility] [place] [facility] [address] [id number] [place] [address] Aug, 2014 [facility] [place] [facility] [address] [id number] [place] [address] Aug, 2014 [facility] [place] [facility] [address] [id number] [place] [address] Aug, 2014 [facility] [place] [facility] [address] [id number] [place] [address] Aug, 2014 [facility] [place] [facility] [address] [id number] [place] [address] Aug, 2014 [facility] [place] [facility] [address] [id number] [place] [address] Aug, 2014 [facility] [place] [facility] [address] [id number] [place] [address] Aug, 2014 [facility] [place] [facility] [address] [id number] [place] [address] Aug, 2014 [facility] [place] [facility] [address] [id number] [place] [address] Jul, [facility] [place] [facility] [address] [id number] [place] [address] Jul, [facility] [place] [facility] [address] [id number] [place] [address] Jul, [facility] [place] [facility] [address] [id number] [place] [address] Jul, [facility] [place] [facility] [address] [id number] [place] [address] Jul, [facility] [place] [facility] [address] [id number] [place] [address] Jul, [facility] [place] [facility] [address] [id number] [place] [address] Jul, [facility] [place] [facility] [address] [id number] [place] [address] Jul, [facility] [place] [facility] [address] [id number] [place] [address] Jun, [facility] [place] [facility] [address] [id number] [place] [address] Jun, [facility] [place] [facility] [address] [id number] [place] [address] Jun, [facility] [place] [facility] [address] [id number] [place] [address] 29 Jun, 2014 [facility] [place] [facility] [address] [id number] [place] [address] 18 Jun, 2014 [facility] [place] [facility] [address] [id number] [place] [address] 15 Jun, 2014 [facility] [place] [facility] [address] [id number] [place] [address] 15 Jun, 2014 [facility] [place] [facility] [address] [id number] [place] [address] Jun, [facility] [place] [facility] [address] [id number] [place] [address] Jun, [facility] [place] [facility] [address] [id number] [place] [address] Jun, [facility] [place] [facility] [address] [id number] [place] [address] Jun, [facility] [place] [facility] [address] [id number] [place] [address] May, [facility] [place] [facility] [address] [id number] [place] [address] May, [facility] [place] [facility] [address] [id number] [place] [address] May, [facility] [place] [facility] [address] [id number] [place] [address] May, [facility] [place] [facility] [address] [id number] [place] [address] May, [facility] [place] [facility] [id number] [place] [address] May, [facility] [place] [facility] [address] [id number] [place] [address] May, [facility] [place] [facility] [address] [id number] [place] [address] Apr, [facility] [place] [facility] [address] [id number] [place] [address] Apr, [facility] [place] [facility] [id number] [place] [address] Apr, [facility] [place] [facility] [address] [id number] [place] [address] Apr, [facility] [place] [facility] [address] [id number] [place] [address] Apr, [facility] [place] [facility] [id number] [place] [address] Apr, [facility] [place] [facility] [address] [id number] [place] [address] Mar, [facility] [place] [facility] [address] [id number] [place] [address] Mar, 2013 [facility] [place] [facility] [address] [facility] [id number] [place] [address] Mar, [facility] [place] [facility] [address] [facility] [id number] [place] [address] Mar, [facility] [place] [facility] [address] [id number] [place] [address] Mar, [facility] [place] [facility] [address] [id number] [place] [address] Mar, [facility] [place] [facility] [address] [facility] [id number] [place] [address] Jan, [facility] [place] [facility] [address] [id number] [place] [address] Jan, [facility] [place] [facility] [address] [id number] [place] [address] Jan, [facility] [place] [facility] [address] [id number] [place] [address] Jan, [facility] [place] [facility] [address] [id number] [place] [address] Dec, [facility] [place] [facility] [address] [id number] [place] [address] Dec, [facility] [place] [facility] [address] [id number] [place] [address] Dec, [facility] [place] [facility] [address] [id number] [place] [address] Dec, [facility] [place] [facility] [address] [id number] [place] [address] Dec, [facility] [place] [facility] [address] [id number] [place] [address] Dec, [facility] [place] [facility] [address] [id number] [place] [address] Dec, [facility] [place] [facility] [address] [id number] [place] [address] Dec, [facility] [place] [facility] [address] [id number] [place] [address] Dec, [facility] [place] [facility] [address] [id number] [place] [address] Dec, [facility] [place] [facility] [address] [id number] [place] [address] Dec, [facility] [place] [facility] [address] [id number] [place] [address] Dec, [facility] [place] [facility] [address] [id number] [place] [address] October, [facility] [place] [facility] [address] [id number] [place] [address] October, [facility] [place] [facility] [address] [id number] [place] [address] October, [facility] [place] [facility] [address] [id number] [place] [address] October, [facility] [place] [facility] [address] [id number] [place] [address] October, [facility] [place] [facility] [address] [id number] [place] [address] October, [facility] [place] [facility] [address] [id number] [place] [address] Oct, [facility] [place] [facility] [address] [id number] [place] [address] Oct, [facility] [address] [id number] [place] [address] Oct, [facility] [address] [id number] [place] [address] Oct, [facility] [address] [id number] [place] [address] Oct, [facility] [address] [id number] [place] [address] Oct, [facility] [address] [id number] [place] [address] Oct, [facility] [address] [id number] [place] [address] Oct, [facility] [address] [id number] [place] [address] Oct, [facility] [address] [id number] [place] [address] Oct, [facility] [address] [id number] [place] [address] Oct, [facility] [address] [id number] [place] [address] Oct, [facility] [address] [id number] [place] [address] Aug, [facility] [address] [id number] [place] [address] Aug, [facility] [address] [id number] [place] [address] Aug, [facility] [address] [id number] [place] [address] Aug, [facility] [address] [id number] [place] [address] Aug, [facility] [address] [id number] [place] [address] Aug, [facility] [address] [id number] [place] [address] Aug, [facility] [address] [id number] [place] [address] Aug, [facility] [address] [id number] [place] [address] Aug, [facility] [address] [id number] [place] [address] Aug, [facility] [address] [id number] [place] [address] Aug, [facility] [address] [id number] [place] [address] Aug, [facility] [address] [id number] [place] [address] Aug, [facility] [address] [id number] [place] [address] 20 Aug, 2013 [facility] [address] [id number] [place] [address] Aug, [facility] [address] [id number] [place] [address] Aug, [facility] [address] [id number] [place] [address] Aug, [facility] [address] [id number] [place] [address] Aug, [facility] [address] [id number] [place] [address] Aug, [facility] [address] [id number] [place] [address] 07 Aug, 2013 [facility] [address] [id number] [place] [address] Aug, [facility] [address] [id number] [place] [address] Aug, [facility] [address] [id number] [place] [address] Aug, [facility] [address] [id number] [place] [address] Aug, [facility] [address] [id number] [place] [address] Aug, [facility] [address] [id number] [place] [address] Jul, [facility] [address] [id number] [place] [address] Jul, [facility] [address] [id number] [place] [address] Jul, [facility] [address] [id number] [place] [address] Jul, [facility] [address] [address] [id number] [place] [address] Jul, [facility] [place] [facility] [address] [id number] [place] [address] Jul, [facility] [place] [facility] [address] [id number] [place] [address] Jul, [facility] [place] [facility] [address] [facility] [id number] [place] [address] Jul, [facility] [place] [facility] [address] [id number] [place] [address] Jul, [facility] [place] [facility] [address] [id number] [place] [address] Jul, [facility] [place] [facility] [address] [id number] [place] [address] Jul, [facility] [place] [facility] [address] [id number] [place] [address] Jul, [facility] [place] [facility] [address] [id number] [place] [address] Jul, [facility] [place] [facility] [address] [id number] [place] [address] Jul, [facility] [place] [facility] [address] [id number] [place] [address] Jul, [facility] [place] [facility] [address] [id number] [place] [address] Jul, [facility] [place] [facility] [address] [id number] [place] [address] Jul, [facility] [place] [facility] [address] [id number] [place] [address] Jul, [facility] [place] [facility] [address] [id number] [place] [address] Jul, [facility] [place] [facility] [address] [id number] [place] [address] Jul, [facility] [place] [facility] [address] [facility] [id number] [place] [address] Jun, [facility] [place] [facility] [address] [id number] [place] [address] Jun, [facility] [place] [facility] [address] [id number] [place] [address] Jun, [facility] [place] [facility] [address] [id number] [place] [address] Jun, [facility] [place] [facility] [address] [id number] [place] [address] Jun, [facility] [place] [facility] [address] [id number] [place] [address] Jun, [facility] [place] [facility] [address] [id number] [place] [address] Jun, [facility] [place] [facility] [address] [id number] [place] [address] Jun, [facility] [place] [facility] [address] [id number] [place] [address] Jun, [facility] [place] [facility] [address] [id number] [place] [address] Jun, [facility] [place] [facility] [address] [id number] [place] [address] Jun, [facility] [place] [facility] [address] [id number] [place] [address] Jun, [facility] [place] [facility] [address] [id number] [place] [address] Jun, [facility] [place] [facility] [address] [id number] [place] [address] Jun, [facility] [place] [facility] [address] [id number] [place] [address] Jun, [facility] [place] [facility] [address] [id number] [place] [address] Jun, [facility] [place] [facility] [address] [id number] [place] [address] 18 Jun, 2013 [facility] [place] [facility] [address] [id number] [place] [address] 17 Jun, 2013 [facility] [place] [facility] [address] [id number] [place] [address] 17 Jun, 2013 [facility] [place] [facility] [address] [id number] [place] [address] 13 Jun, 2013 [facility] [place] [facility] [address] [id number] [place] [address] 12 Jun, 2013 [facility] [place] [facility] [address] [id number] [place] [address] 12 Jun, 2013 [facility] [place] [facility] [address] [id number] [place] [address] Jun, [facility] [place] [facility] [address] [id number] [place] [address] 05 Jun, 2013 [facility] [place] [facility] [address] [id number] [place] [address] 05 Jun, 2013 [facility] [place] [facility] [address] [id number] [place] [address] Jun, [facility] [place] [facility] [address] [id number] [place] [address] Jun, [facility] [place] [facility] [address] [id number] [place] [address] May, [facility] [place] [facility] [address] [id number] [place] [address] May, [facility] [place] [facility] [address] [id number] [place] [address] May, [facility] [place] [facility] [id number] [place] [address] May, [facility] [place] [facility] [address] [id number] [place] [address] May, [facility] [place] [facility] [address] [id number] [place] [address] 05 May, 2013 [facility] [place] [facility] [address] [id number] [place] [address] 30 Apr, 2012 [facility] [place] [facility] [address] [id number] [place] [address] Apr, 2012 [facility] [place] [facility] [address] [id number] [place] [address] Apr, 2012 [facility] [place] [facility] [address] [id number] [place] [address] Apr, 2012 [facility] [place] [facility] [address] [id number] [place] [address] Apr, 2012 [facility] [place] [facility] [address] [id number] [place] [address] Apr, 2012 [facility] [place] [facility] [address] [id number] [place] [address] 15 Apr, 2013 [facility] [place] [facility] [address] [id number] [place] [address] Apr, 2012 [facility] [place] [facility] [address] [id number] [place] [address] 26 Sep, 2012 [facility] [place] [facility] [address] [id number] [place] [address] 24 Sep, 2012 [facility] [place] [facility] [address] [id number] [place] [address] 17 Sep, 2012 [facility] [place] [facility] [address] [id number] [place] [address] 17 Sep, 2012 [facility] [place] [facility] [address] [id number] [place] [address] 11 Sep, 2012 [facility] [place] [facility] [address] [id number] [place] [address] 10 Sep, 2012 [facility] [place] [facility] [address] [id number] [place] [address] 05 Sep, 2012 [facility] [place] [facility] [address] [id number] [place] [address] 04 Sep, 2012 [facility] [place] [facility] [address] [id number] [place] [address] Jan, [facility] [place] [facility] [address] [id number] [place] [address] Jan, [facility] [place] [facility] [address] [facility] [id number] [place] [address] 14 Jan, 2013 [facility] [place] [facility] [address] [id number] [place] [address] Jan, [facility] [place] [facility] [address] [facility] [id number] [place] [address] Jan, [facility] [place] [facility] [address] [facility] [id number] [place] [address] Jan, [facility] [place] [facility] [address] [facility] [id number] [place] [address] 31 Dec, 2012 [facility] [place] [facility] [address] [id number] [place] [address] 24 Dec, 2012 [facility] [place] [facility] [address] [id number] [place] [address] Dec, [facility] [place] [facility] [address] [facility] [id number] [place] [address] Dec, [facility] [place] [facility] [address] [id number] [place] [address] 18 Dec, 2012 [facility] [place] [facility] [address] [id number] [place] [address] 17 Dec, 2012 [facility] [place] [facility] [address] [id number] [place] [address] 16 Dec, 2012 [facility] [place] [facility] [address] [facility] [id number] [place] [address] 16 Dec, 2012 [facility] [place] [facility] [address] [id number] [place] [address] 15 Dec, 2012 [facility] [place] [facility] [address] [facility] [id number] [place] [address] 10 Dec, 2012 [facility] [place] [facility] [address] [id number] [place] [address] Dec, [facility] [place] [facility] [address] [id number] [place] [address] Dec, [facility] [place] [facility] [address] [id number] [place] [address] Dec, [facility] [place] [facility] [address] [id number] [place] [address] Dec, [facility] [place] [facility] [address] [id number] [place] [address] Dec, [facility] [place] [facility] [address] [id number] [place] [address] Dec, [facility] [place] [facility] [address] [id number] [place] [address] October, [facility] [place] [facility] [address] [id number] [place] [address] October, [facility] [place] [facility] [address] [id number] [place] [address] October, [facility] [place] [facility] [address] [id number] [place] [address] October, [facility] [place] [facility] [address] [id number] [place] [address] October, [facility] [place] [facility] [address] [id number] [place] [address] October, [facility] [place] [facility] [address] [id number] [place] [address] October, [facility] [place] [facility] [address] [id number] [place] [address] Oct, [facility] [place] [facility] [address] [id number] [place] [address] Oct, [facility] [place] [facility] [address] [id number] [place] [address] 24 Oct, 2012 [facility] [place] [facility] [address] [id number] [place] [address] Oct, [facility] [place] [facility] [address] [id number] [place] [address] Oct, [facility] [address] [id number] [place] [address] 18 Oct, 2012 [facility] [place] [facility] [address] [id number] [place] [address] 17 Oct, 2012 [facility] [place] [facility] [address] [id number] [place] [address] 15 Oct, 2012 [facility] [place] [facility] [address] [id number] [place] [address] 12 Oct, 2012 [facility] [place] [facility] [address] [facility] [id number] [place] [address] Oct, [facility] [place] [facility] [address] [id number] [place] [address] Oct, [facility] [place] [facility] [address] [id number] [place] [address] Oct, [facility] [place] [facility] [address] [id number] [place] [address] Aug, [facility] [place] [facility] [address] [id number] [place] [address] Aug, [facility] [place] [facility] [address] [id number] [place] [address] Aug, [facility] [place] [facility] [address] [id number] [place] [address] 06 Aug, 2012 [facility] [place] [facility] [address] [id number] [place] [address] 05 Aug, 2012 [facility] [place] [facility] [address] [id number] [place] [address] 05 Aug, 2012 [facility] [place] [facility] [address] [id number] [place] [address] 20 Aug, 2012 [facility] [place] [facility] [address] [id number] [place] [address] 14 Aug, 2012 [facility] [place] [facility] [address] [id number] [place] [address] 12 Aug, 2012 [facility] [place] [facility] [address] [id number] [place] [address] 11 Aug, 2012 [facility] [place] [facility] [address] [id number] [place] [address] Jul, [facility] [place] [facility] [address] [id number] [place] [address] 15 Jul, 2012 [facility] [place] [facility] [address] [id number] [place] [address] 08 Jul, 2012 [facility] [place] [facility] [address] [id number] [place] [address] 20 Jun, 2012 [facility] [place] [facility] [address] [id number] [place] [address] 18 Jun, 2012 [facility] [place] [facility] [address] [id number] [place] [address] 18 Jun, 2012 [facility] [place] [facility] [address] [id number] [place] [address] 18 Jun, 2012 [facility] [place] [facility] [address] [id number] [place] [address] 18 Jun, 2012 [facility] [place] [facility] [address] [id number] [place] [address] 14 Jun, 2012 [facility] [place] [facility] [address] [id number] [place] [address] 14 Jun, 2012 [facility] [place] [facility] [address] [id number] [place] [address] 13 Jun, 2012 [facility] [place] [facility] [address] [id number] [place] [address] 13 Jun, 2012 [facility] [place] [facility] [address] [id number] [place] [address] 11 Jun, 2012 [facility] [place] [facility] [address] [id number] [place] [address] 11 Jun, 2012 [facility] [place] [facility] [address] [id number] [place] [address] 11 Jun, 2012 [facility] [place] [facility] [address] [id number] [place] [address] 11 Jun, 2012 [facility] [place] [facility] [address] [id number] [place] [address] Jun, [facility] [place] [facility] [address] [id number] [place] [address] Jun, [facility] [place] [facility] [address] [id number] [place] [address] Jun, [facility] [place] [facility] [address] [id number] [place] [address] Jun, [facility] [place] [facility] [address] [id number] [place] [address] Jun, [facility] [place] [facility] [address] [id number] [place] [address] Jun, [facility] [place] [facility] [address] [id number] [place] [address] Jun, [facility] [place] [facility] [address] [id number] [place] [address] Jun, [facility] [place] [facility] [address] [id number] [place] [address] Jun, [facility] [place] [facility] [address] [id number] [place] [address] Jun, [facility] [place] [facility] [address] [id number] [place] [address] May, [facility] [place] [facility] [address] [id number] [place] [address] May, [facility] [place] [facility] [address] [id number] [place] [address] May, [facility] [place] [facility] [address] [id number] [place] [address] May, [facility] [place] [facility] [address] [id number] [place] [address] May, [facility] [place] [facility] [address] [id number] [place] [address] May, [facility] [place] [facility] [address] [id number] [place] [address] May, [facility] [place] [facility] [address] [id number] [place] [address] May, 2011 [facility] [place] [facility] [address] [id number] [place] [address] Apr, [facility] [place] [facility] [address] [id number] [place] [address] Apr, [facility] [place] [facility] [address] [id number] [place] [address] Apr, [facility] [place] [facility] [address] [id number] [place] [address] Apr, [facility] [place] [facility] [address] [id number] [place] [address] Apr, [facility] [place] [facility] [address] [id number] [place] [address] Apr, [facility] [place] [facility] [address] [id number] [place] [address] Apr, [facility] [place] [facility] [address] [id number] [place] [address] Apr, [facility] [place] [facility] [address] [id number] [place] [address] Apr, [facility] [place] [facility] [address] [id number] [place] [address] 08 Apr, 2012 [facility] [place] [facility] [address] [id number] [place] [address] 04 Apr, 2012 [facility] [place] [facility] [address] [id number] [place] [address] 02 Apr, 2012 [facility] [place] [facility] [address] [id number] [place] [address] 19 Sep, 2011 [facility] [place] [facility] [address] [id number] [place] [address] 18 Sep, 2011 [facility] [place] [facility] [address] [id number] [place] [address] 12 Mar, 2011 [facility] [place] [facility] [address] [id number] [place] [address] Mar, [facility] [place] [facility] [address] [id number] [place] [id number] Mar, [facility] [place] [facility] [address] [id number] [place] [id number] Mar, [facility] [place] [facility] [address] [id number] [place] [address] Mar, [facility] [place] [facility] [address] [id number] [place] [address] Jan, [facility] [place] [facility] [address] [id number] [place] [address] Jan, [facility] [place] [facility] [address] [id number] [place] [id number] Jan, [facility] [place] [facility] [address] [id number] [place] [address] [id number] Jan, [facility] [place] [facility] [address] [id number] [place] [address] Jan, [facility] [place] [facility] [address] [id number] [place] [address] Jan, [facility] [place] [facility] [address] [id number] [place] [address] Jan, [facility] [place] [facility] [address] [id number] [place] [address] Jan, [facility] [place] [facility] [address] [id number] [place] [address] Jan, [facility] [place] [facility] [address] [id number] [place] [address] Jan, [facility] [place] [facility] [address] [id number] [place] [address] Jan, [facility] [place] [facility] [address] [id number] [place] [address] Dec, [facility] [place] [facility] [address] [id number] [place] [address] Dec, [facility] [place] [facility] [address] [id number] [place] [address] 26 Dec, 2011 [facility] [address] [id number] [place] [address] 26 Jan, 2012 [facility] [address] [id number] [place] [address] 20 Jan, 2012 [facility] [address] [id number] [place] [address] 19 Jan, 2012 [facility] [address] [id number] [place] [address] 18 Dec, 2011 [facility] [address] [facility] [id number] [place] [address] 17 Jan, 2012 [facility] [address] [id number] [place] [address] 16 Jan, 2012 [facility] [address] [id number] [place] [address] 13 Jan, 2012 [facility] [address] [id number] [place] [address] 13 Jan, 2012 [facility] [address] [id number] [place] [address] Dec, [facility] [address] [id number] [place] [address] Dec, [facility] [address] [id number] [place] [address] 27 Dec, 2011 [facility] [address] [id number] [place] [address] 25 Dec, 2011 [facility] [address] [id number] [place] [address] 18 Dec, 2011 [facility] [address] [id number] [place] [address] 15 Dec, 2011 [facility] [address] [id number] [place] [address] 06 Dec, 2011 [facility] [address] [id number] [place] [address] Dec, [facility] [address] [id number] [place] [address] October, [facility] [address] [id number] [place] [address] October, [facility] [address] [id number] [place] [address] October, [facility] [address] [id number] [place] [address] October, [facility] [address] [id number] [place] [address] October, [facility] [address] [id number] [place] [address] October, [facility] [address] [id number] [place] [address] Oct, [facility] [address] [id number] [place] [address] Oct, [facility] [address] [id number] [place] [address] Oct, [facility] [address] [id number] [place] [address] Oct, [facility] [address] [id number] [place] [address] Oct, [facility] [address] [id number] [place] [address] Oct, [facility] [address] [id number] [place] [address] Oct, [facility] [address] [id number] [place] [address] Aug, [facility] [address] [id number] [place] [address] Aug, [facility] [address] [id number] [place] [address] Aug, [facility] [address] [id number] [place] [address] 13 Sep, 2011 [facility] [address] [id number] [place] [address] Aug, [facility] [address] [id number] [place] [address] 05 Sep, 2011 [facility] [address] [id number] [place] [address] 27 Aug, 2011 [facility] [address] [id number] [place] [address] Aug, [facility] [address] [id number] [place] [address] 08 Aug, 2011 [facility] [address] [id number] [place] [address] Jul, [facility] [address] [id number] [place] [address] Jul, [facility] [address] [id number] [place] [address] Jul, [facility] [address] [id number] [place] [address] Jul, [facility] [address] [id number] [place] [address] Jun, [facility] [address] [id number] [place] [address] Jun, [facility] [address] [id number] [place] [address] May, [facility] [address] [id number] [place] [address] May, [facility] [address] [id number] [place] [address] May, [facility] [address] [id number] [place] [address] May, [facility] [address] [id number] [place] [address] May, [facility] [address] [id number] [place] [address] Apr, [facility] [address] [id number] [place] [address] Apr, [facility] [address] [id number] [place] [address] Apr, [facility] [address] [id number] [place] [address] Jan, [facility] [id number] [place] [address] Dec, [facility] [id number] [place] [address] October, [facility] [id number] [place] [address] Jun, [facility] [id number] [place] [address] Apr, [facility] [id number] [place] [address] Apr, [facility] [id number] [place] [address] Apr, [facility] [address] [id number] [place] [address] Jun, IMMUNIZATIONS No Known Immunizations SOCIAL HISTORY Never Assessed REASON FOR VISIT PLAN OF CARE VITAL SIGNS Height 69 in 2013-07-12 Weight 166.5 lbs 2013-07-12 Temperature 98 degrees Fahrenheit 2013-07-12 Heart Rate 100 bpm 2013-07-12 Respiratory Rate 88 2013-07-12 Blood pressure systolic 142 mmHg 2013-07-12 Blood pressure diastolic 90 mmHg 2013-07-12 MEDICATIONS Unknown Medications RESULTS No Results PROCEDURES No Known procedures INSTRUCTIONS MEDICATIONS ADMINISTERED No Known Medications MEDICAL (GENERAL) HISTORY Type Description Date Medical History Psychiatric disorder Medical History Hard of hearing Surgical History Neofibrous tumor Surgical History back injection Surgical History SCS inserted 02/22/16 Hospitalization History Intestinal blockage Hospitalization History past psychiatric hospitalizations x2 Hospitalization History [facility]
--- OUTSIDE RECORDS SUMMARY | 2020-01-25 12:24 | XMS REPORT ---
Author Author Ana Iraheta Organization [facility] Address [address] [place] [address] Care Team Providers Care Wood Type Cutter Name Role Phone MELISA Iraheta Unavailable PROBLEMS Type Condition ICD9-CM Code QXL11-UF Code Onset Dates Condition S tatus SNOMED Code Problem Chronic hepatitis C without hepatic coma B18.2 Active 173466511 Problem Cannabis abuse F12.10 Active 83891 009 Problem Bipolar 1 disorder F31.9 Active 3 29108926 Problem Attention deficit hyperactivity disorder (ADHD), combi luciano type F90.2 Active 05020490 Problem Attention deficit R41.840 Active 76 503593 Problem Hot flashes due to menopause N95.1 A ctive 530618129 Problem H/O laminectomy Z98.89 Active 1616 05835 Problem Other chronic pain G89.29 Active 8 7494873 Problem Anxiety disorder, unspecified type F41.9 Active 033518151 Problem Bipolar disorder, in partial remission, most rec ent episode hypomanic F31.71 Active [id number] ALLERGIES No Information ENCOUNTERS Encounter Location Date Diagnosis [place] [id number] [place] [address] Aug, [facility] [address] [address] Jul, [facility] [address] [address] Jul, [place] [address] [address] Apr, [place] [address] [address] Mar, Hot flashes due to menopause N95.1 ; Anx iety disorder, unspecified type F41.9 ; Low back pain M54.5 and Encounter for immunization Z23 [facility] [address] [address] Dec, Other chronic pain G89.29 and Low back p ain M54.5 [facility] [address] [address] October, [facility] [address] [address] October, [facility] [address] [address] October, [facility] [address] [address] October, Other chronic pain G89.29 and Chronic he patitis C without hepatic coma B18.2 [facility] [address] [address] Aug, Bipolar disorder, in partial remission, most recent episode hypomanic F31.71 ; Attention deficit hyperactivity disorder (ADHD), combined type F90.2 and Anxiety disorder, unspecified type F41.9 [facility] [address] [address] Aug, [place] [address] [address] Aug, Bipolar disorder, in partial remission, most recent episode hypomanic F31.71 [facility] [address] [address] Aug, [facility] [address] [address] Aug, Bipolar disorder, in partial remission, most recent episode hypomanic F31.71 [place] [address] [address] Aug, Bipolar disorder, in partial remission, most recent episode hypomanic F31.71 ; Attention deficit hyperactivity disorder (ADHD), combined type F90.2 and Anxiety disorder, unspecified type F41.9 [facility] [id number] [place] [address] Aug, Low back pain M54.5 and Pain in left wri st M25.532 [facility] [address] [id number] [place] [address] Aug, [facility] [address] [id number] [place] [address] Jun, [facility] [id number] [place] [address] Apr, Bipolar disorder, in partial remission, most recent episode hypomanic F31.71 [facility] [id number] [place] [address] Apr, [facility] [id number] [place] [address] Apr, Bipolar disorder, in partial remission, most recent episode hypomanic F31.71 ; Attention deficit hyperactivity disorder (ADHD), combined type F90.2 ; Anxiety disorder, unspecified type F41.9 and Other assisted (current) 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 Z79.899 [facility] [id number] [place] [address] Apr, Bipolar disorder, in partial remission, most recent episode hypomanic F31.71 [facility] [address] [id number] [place] [address] Apr, Bipolar disorder, in partial remission, most recent episode hypomanic F31.71 [facility] [id number] [place] [address] Mar, [facility] [id number] [place] [address] Mar, Bipolar disorder, in partial remission, most recent episode hypomanic F31.71 ; Encounter for immunization Z23 and Low back pain M54.5 [facility] [address] [id number] [place] [address] Mar, Bipolar disorder, in partial remission, most recent episode hypomanic F31.71 [facility] [id number] [place] [address] Mar, Bipolar disorder, in partial remission, most recent episode hypomanic F31.71 [facility] [address] [id number] [place] [address] Jan, Bipolar disorder, in partial remission, most recent episode hypomanic F31.71 [facility] [address] [id number] [place] [address] Jan, Bipolar disorder, in partial remission, most recent episode hypomanic F31.71 [facility] [id number] [place] [address] Dec, Bipolar disorder, in partial remission, most recent episode hypomanic F31.71 [facility] [id number] [place] [address] Dec, Bipolar disorder, in partial remission, most recent episode hypomanic F31.71 ; Attention deficit hyperactivity disorder (ADHD), combined type F90.2 ; Anxiety disorder, unspecified type F41.9 and Other assisted (current) 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 Z79.899 [facility] [id number] [place] [address] Dec, Bipolar disorder, in partial remission, most recent episode hypomanic F31.71 [facility] [address] [id number] [place] [address] Dec, Bipolar disorder, in partial remission, most recent episode hypomanic F31.71 [facility] [id number] [place] [address] October, Bipolar disorder, in partial remission, most recent episode hypomanic F31.71 [facility] [address] [id number] [place] [address] October, [facility] [address] [id number] [place] [address] October, [facility] [address] [id number] [place] [address] Oct, Bipolar disorder, in partial remission, most recent episode hypomanic F31.71 ; Attention deficit hyperactivity disorder (ADHD), combined type F90.2 ; Anxiety disorder, unspecified type F41.9 and Encounter for drug screening Z02.83 [facility] [id number] [place] [address] Oct, Bipolar disorder, in partial remission, most recent episode hypomanic F31.71 [facility] [id number] [place] [address] Oct, Bipolar disorder, in partial remission, most recent episode hypomanic F31.71 [facility] [id number] [place] [address] Aug, Bipolar disorder, in partial remission, most recent episode hypomanic F31.71 [facility] [id number] [place] [address] Aug, Bipolar disorder, in partial remission, most recent episode hypomanic F31.71 [facility] [id number] [place] [address] Aug, Bipolar disorder, in partial remission, most recent episode hypomanic F31.71 [facility] [id number] [place] [address] Jul, Bipolar disorder, in partial remission, most recent episode hypomanic F31.71 ; Attention deficit hyperactivity disorder (ADHD), combined type F90.2 and Anxiety disorder, unspecified type F41.9 [facility] [id number] [place] [address] Jul, Bipolar disorder, in partial remission, most recent episode hypomanic F31.71 [facility] [id number] [place] [address] Jun, Bipolar disorder, in partial remission, most recent episode hypomanic F31.71 [facility] [id number] [place] [address] May, Bipolar disorder, in partial remission, most recent episode hypomanic F31.71 [facility] [id number] [place] [address] May, Bipolar disorder, in partial remission, most recent episode hypomanic F31.71 [facility] [address] [address] Apr, [facility] [address] [address] Apr, Bipolar disorder, in partial remission, most recent episode hypomanic F31.71 ; Attention deficit hyperactivity disorder (ADHD), combined type F90.2 ; Anxiety disorder, unspecified type F41.9 and Cannabis abuse F12.10 [facility] [address] [address] Apr, Attention deficit hyperactivity disorder (ADHD), combined type F90.2 [place] [address] [address] Mar, Attention deficit hyperactivity disorder (ADHD), combined type F90.2 [place] [address] [address] Mar, Anxiety disorder, unspecified type F41.9 [facility] [address] [address] Jan, Attention deficit hyperactivity disorder (ADHD), combined type F90.2 [facility] [address] [address] Jan, Anxiety disorder, unspecified type F41.9 [place] [address] [address] Jan, Other chronic pain G89.29 ; Chronic hepa titis C without hepatic coma B18.2 and Bipolar 1 disorder F31.9 [facility] [address] [address] Dec, Attention deficit hyperactivity disorder (ADHD), combined type F90.2 [facility] [address] [address] Dec, Bipolar disorder, in partial remission, most recent episode hypomanic F31.71 ; Attention deficit hyperactivity disorder (ADHD), combined type F90.2 and Anxiety disorder, unspecified type F41.9 [place] [id number] [address] Dec, Bipolar disorder, in partial remission, most recent episode hypomanic F31.71 ; Attention deficit hyperactivity disorder (ADHD), combined type F90.2 and Anxiety disorder, unspecified type F41.9 [place] [address] [address] Dec, Bipolar 1 disorder F31.9 and Attention d eficit R41.840 [place] [address] [address] Oct, Other chronic pain G89.29 ; Alopecia L65 .9 and Screening, lipid Z13.220 [place] [address] [address] Oct, [place] [address] [address] Aug, [place] [address] [address] Aug, Eustachian tube dysfunction, right H69.8 1 ; Vertigo R42 and Other chronic pain G89.29 [place] [address] [address] Aug, [place] [address] [address] Jun, [place] [address] [address] Jun, Low back pain M54.5 and Other chronic pa in G89.29 [place] [address] [address] Jun, [place] [address] [address] May, [place] [address] [address] Jan, [facility] [address] [address] Dec, [facility] [address] [address] Dec, [facility] [address] [address] Jun, [facility] [address] [address] Apr, Eustachian tube dysfunction, unspecified laterality H69.80 ; Hot flashes N95.1 and Encounter for immunization Z23 [facility] [address] [address] Jan, [facility] [address] [address] Jan, [facility] [address] [address] Jan, [facility] [address] [address] Jan, [facility] [address] [address] Jan, Encounter to establish care V65.8 ; Bipo lar 1 disorder 296.7 ; Abdominal pain 789.00 ; Constipation 564.00 ; Hard of hearing 389.9 and Drug abuse 305.90 [facility] [address] [address] Dec, [facility] [address] [address] October, [facility] [address] [address] October, [facility] [address] [address] Oct, [facility] [address] [address] Oct, [facility] [place] [facility] [address] [id number] [place] [address] Oct, [facility] [place] [facility] [address] [id number] [place] [address] Aug, [facility] [place] [facility] [address] [id number] [place] [address] Aug, [facility] [place] [facility] [address] [id number] [place] [address] Aug, [facility] [place] [facility] [address] [id number] [place] [address] Aug, 2014 [facility] [place] [facility] [address] [id number] [place] [address] Aug, 2014 [facility] [place] [facility] [address] [id number] [place] [address] Aug, 2014 [facility] [place] [facility] [address] [id number] [place] [address] Aug, 2014 [facility] [place] [facility] [address] [id number] [place] [address] Aug, 2014 [facility] [place] [facility] [address] [id number] [place] [address] Aug, 2014 [facility] [place] [facility] [address] [id number] [place] [address] Aug, 2014 [facility] [place] [facility] [address] [id number] [place] [address] Aug, 2014 [facility] [place] [facility] [address] [id number] [place] [address] Aug, 2014 [facility] [place] [facility] [address] [id number] [place] [address] Aug, 2014 [facility] [place] [facility] [address] [id number] [place] [address] Aug, 2014 [facility] [place] [facility] [address] [id number] [place] [address] Aug, 2014 [facility] [place] [facility] [address] [id number] [place] [address] Jul, [facility] [place] [facility] [address] [id number] [place] [address] Jul, [facility] [place] [facility] [address] [id number] [place] [address] Jul, [facility] [place] [facility] [address] [id number] [place] [address] Jul, [facility] [place] [facility] [address] [id number] [place] [address] Jul, [facility] [place] [facility] [address] [id number] [place] [address] Jul, [facility] [place] [facility] [address] [id number] [place] [address] Jul, [facility] [place] [facility] [address] [id number] [place] [address] Jul, [facility] [place] [facility] [address] [id number] [place] [address] Jun, [facility] [place] [facility] [address] [id number] [place] [address] Jun, [facility] [place] [facility] [address] [id number] [place] [address] Jun, [facility] [place] [facility] [address] [id number] [place] [address] 29 Jun, 2014 [facility] [place] [facility] [address] [id number] [place] [address] 18 Jun, 2014 [facility] [place] [facility] [address] [id number] [place] [address] 15 Jun, 2014 [facility] [place] [facility] [address] [id number] [place] [address] 15 Jun, 2014 [facility] [place] [facility] [address] [id number] [place] [address] Jun, [facility] [place] [facility] [address] [id number] [place] [address] Jun, [facility] [place] [facility] [address] [id number] [place] [address] Jun, [facility] [place] [facility] [address] [id number] [place] [address] Jun, [facility] [place] [facility] [address] [id number] [place] [address] May, [facility] [place] [facility] [address] [id number] [place] [address] May, [facility] [place] [facility] [address] [id number] [place] [address] May, [facility] [place] [facility] [address] [id number] [place] [address] May, [facility] [place] [facility] [address] [id number] [place] [address] May, [facility] [place] [facility] [id number] [place] [address] May, [facility] [place] [facility] [address] [id number] [place] [address] May, [facility] [place] [facility] [address] [id number] [place] [address] Apr, [facility] [place] [facility] [address] [id number] [place] [address] Apr, [facility] [place] [facility] [id number] [place] [address] Apr, [facility] [place] [facility] [address] [id number] [place] [address] Apr, [facility] [place] [facility] [address] [id number] [place] [address] Apr, [facility] [place] [facility] [id number] [place] [address] Apr, [facility] [place] [facility] [address] [id number] [place] [address] Mar, [facility] [place] [facility] [address] [id number] [place] [address] Mar, 2013 [facility] [place] [facility] [address] [facility] [id number] [facility] [address] Mar, [facility] [place] [facility] [address] [facility] [id number] [facility] [address] Mar, [facility] [place] [facility] [address] [id number] [place] [address] Mar, [facility] [place] [facility] [address] [id number] [place] [address] Mar, [facility] [place] [facility] [address] [facility] [id number] [place] [address] Jan, [facility] [place] [facility] [address] [id number] [place] [address] Jan, [facility] [place] [facility] [address] [id number] [place] [address] Jan, [facility] [place] [facility] [address] [id number] [place] [address] Jan, [facility] [place] [facility] [address] [id number] [place] [address] Dec, [facility] [place] [facility] [address] [id number] [place] [address] Dec, [facility] [place] [facility] [address] [id number] [place] [address] Dec, [facility] [place] [facility] [address] [id number] [place] [address] Dec, [facility] [place] [facility] [address] [id number] [place] [address] Dec, [facility] [place] [facility] [address] [id number] [place] [address] Dec, [facility] [place] [facility] [address] [id number] [place] [address] Dec, [facility] [place] [facility] [address] [id number] [place] [address] Dec, [facility] [place] [facility] [address] [id number] [place] [address] Dec, [facility] [place] [facility] [address] [id number] [place] [address] Dec, [facility] [place] [facility] [address] [id number] [place] [address] Dec, [facility] [place] [facility] [address] [id number] [place] [address] Dec, [facility] [place] [facility] [address] [id number] [place] [address] October, [facility] [place] [facility] [address] [id number] [place] [address] October, [facility] [place] [facility] [address] [id number] [place] [address] October, [facility] [place] [facility] [address] [id number] [place] [address] October, [facility] [place] [facility] [address] [id number] [place] [address] October, [facility] [place] [facility] [address] [id number] [place] [address] October, [facility] [place] [facility] [address] [id number] [place] [address] Oct, [facility] [place] [facility] [address] [id number] [place] [address] Oct, [facility] [address] [id number] [place] [address] Oct, [facility] [address] [id number] [place] [address] Oct, [facility] [address] [id number] [place] [address] Oct, [facility] [address] [id number] [place] [address] Oct, [facility] [address] [id number] [place] [address] Oct, [facility] [address] [id number] [place] [address] Oct, [facility] [address] [id number] [place] [address] Oct, [facility] [address] [id number] [place] [address] Oct, [facility] [address] [id number] [place] [address] Oct, [facility] [address] [id number] [place] [address] Oct, [facility] [address] [id number] [place] [address] Aug, [facility] [address] [id number] [place] [address] Aug, [facility] [address] [id number] [place] [address] Aug, [facility] [address] [id number] [place] [address] Aug, [facility] [address] [id number] [place] [address] Aug, [facility] [address] [id number] [place] [address] Aug, [facility] [address] [id number] [place] [address] Aug, [facility] [address] [id number] [place] [address] Aug, [facility] [address] [id number] [place] [address] Aug, [facility] [address] [id number] [place] [address] Aug, [facility] [address] [id number] [place] [address] Aug, [facility] [address] [id number] [place] [address] Aug, [facility] [address] [facility] [id number] [place] [address] Aug, [facility] [place] [facility] [address] [id number] [place] [address] 20 Aug, 2013 [facility] [place] [facility] [address] [id number] [place] [address] Aug, [facility] [place] [facility] [address] [id number] [place] [address] Aug, [facility] [place] [facility] [address] [id number] [place] [address] Aug, [facility] [place] [facility] [address] [id number] [place] [address] Aug, [facility] [place] [facility] [address] [id number] [place] [address] Aug, [facility] [place] [facility] [address] [id number] [place] [address] 07 Aug, 2013 [facility] [place] [facility] [address] [id number] [place] [address] Aug, [facility] [place] [facility] [address] [id number] [place] [address] Aug, [facility] [place] [facility] [address] [id number] [place] [address] Aug, [facility] [place] [facility] [address] [id number] [place] [address] Aug, [facility] [place] [facility] [address] [id number] [place] [address] Aug, [facility] [place] [facility] [address] [id number] [place] [address] Jul, [facility] [place] [facility] [address] [id number] [place] [address] Jul, [facility] [place] [facility] [address] [id number] [place] [address] Jul, [facility] [place] [facility] [address] [id number] [place] [address] Jul, [facility] [place] [facility] [address] [id number] [place] [address] Jul, [facility] [place] [facility] [address] [id number] [place] [address] Jul, [facility] [place] [facility] [address] [id number] [place] [address] Jul, [facility] [place] [facility] [address] [facility] [id number] [place] [address] Jul, [facility] [place] [facility] [address] [id number] [place] [address] Jul, [facility] [place] [facility] [address] [id number] [place] [address] Jul, [facility] [place] [facility] [address] [id number] [place] [address] Jul, [facility] [place] [facility] [address] [id number] [place] [address] Jul, [facility] [place] [facility] [address] [id number] [place] [address] Jul, [facility] [place] [facility] [address] [id number] [place] [address] Jul, [facility] [place] [facility] [address] [id number] [place] [address] Jul, [facility] [place] [facility] [address] [id number] [place] [address] Jul, [facility] [place] [facility] [address] [id number] [place] [address] Jul, [facility] [place] [facility] [address] [id number] [place] [address] Jul, [facility] [place] [facility] [address] [id number] [place] [address] Jul, [facility] [place] [facility] [address] [id number] [place] [address] Jul, [facility] [place] [facility] [address] [facility] [id number] [place] [address] Jun, [facility] [place] [facility] [address] [id number] [place] [address] Jun, [facility] [place] [facility] [address] [id number] [place] [address] Jun, [facility] [place] [facility] [address] [id number] [place] [address] Jun, [facility] [place] [facility] [address] [id number] [place] [address] Jun, [facility] [place] [facility] [address] [id number] [place] [address] Jun, [facility] [place] [facility] [address] [id number] [place] [address] Jun, [facility] [place] [facility] [address] [id number] [place] [address] Jun, [facility] [place] [facility] [address] [id number] [place] [address] Jun, [facility] [place] [facility] [address] [id number] [place] [address] Jun, [facility] [place] [facility] [address] [id number] [place] [address] Jun, [facility] [place] [facility] [address] [id number] [place] [address] Jun, [facility] [place] [facility] [address] [id number] [place] [address] Jun, [facility] [place] [facility] [address] [id number] [place] [address] Jun, [facility] [place] [facility] [address] [id number] [place] [address] Jun, [facility] [place] [facility] [address] [id number] [place] [address] Jun, [facility] [place] [facility] [address] [id number] [place] [address] 18 Jun, 2013 [facility] [place] [facility] [address] [id number] [place] [address] 17 Jun, 2013 [facility] [place] [facility] [address] [id number] [place] [address] 17 Jun, 2013 [facility] [place] [facility] [address] [id number] [place] [address] 13 Jun, 2013 [facility] [place] [facility] [address] [id number] [place] [address] 12 Jun, 2013 [facility] [place] [facility] [address] [id number] [place] [address] 12 Jun, 2013 [facility] [place] [facility] [address] [id number] [place] [address] Jun, [facility] [place] [facility] [address] [id number] [place] [address] 05 Jun, 2013 [facility] [place] [facility] [address] [id number] [place] [address] 05 Jun, 2013 [facility] [place] [facility] [address] [id number] [place] [address] Jun, [facility] [place] [facility] [address] [id number] [place] [address] Jun, [facility] [place] [facility] [address] [id number] [place] [address] May, [facility] [place] [facility] [address] [id number] [place] [address] May, [facility] [place] [facility] [address] [id number] [place] [address] May, [facility] [place] [facility] [id number] [place] [address] May, [facility] [place] [facility] [address] [id number] [place] [address] May, [facility] [place] [facility] [address] [id number] [place] [address] 05 May, 2013 [facility] [place] [facility] [address] [id number] [place] [address] 30 Apr, 2012 [facility] [place] [facility] [address] [id number] [place] [address] Apr, 2012 [facility] [place] [facility] [address] [id number] [place] [address] Apr, 2012 [facility] [place] [facility] [address] [id number] [place] [address] Apr, 2012 [facility] [place] [facility] [address] [id number] [place] [address] Apr, 2012 [facility] [place] [facility] [address] [id number] [place] [address] Apr, 2012 [facility] [place] [facility] [address] [id number] [place] [address] 15 Apr, 2013 [facility] [place] [facility] [address] [id number] [place] [address] Apr, 2012 [facility] [place] [facility] [address] [id number] [place] [address] 26 Sep, 2012 [facility] [place] [facility] [address] [id number] [place] [address] 24 Sep, 2012 [facility] [place] [facility] [address] [id number] [place] [address] 17 Sep, 2012 [facility] [place] [facility] [address] [id number] [place] [address] 17 Sep, 2012 [facility] [place] [facility] [address] [id number] [place] [address] 11 Sep, 2012 [facility] [place] [facility] [address] [id number] [place] [address] 10 Sep, 2012 [facility] [place] [facility] [address] [id number] [place] [address] 05 Sep, 2012 [facility] [place] [facility] [address] [id number] [place] [address] 04 Sep, 2012 [facility] [place] [facility] [address] [id number] [facility] [address] Jan, [facility] [place] [facility] [address] [id number] [place] [address] Jan, [facility] [place] [facility] [address] [facility] [id number] [facility] [place] [address] 14 Jan, 2013 [facility] [place] [facility] [address] [id number] [facility] [place] [address] Jan, [facility] [place] [facility] [address] [facility] [id number] [place] [address] Jan, [facility] [place] [facility] [address] [facility] [id number] [place] [address] Jan, [facility] [place] [facility] [address] [facility] [id number] [place] [address] 31 Dec, 2012 [facility] [place] [facility] [address] [id number] [facility] [place] [address] 24 Dec, 2012 [facility] [place] [facility] [address] [id number] [facility] [place] [address] Dec, [facility] [place] [facility] [address] [facility] [id number] [facility] [place] [address] Dec, [facility] [place] [facility] [address] [id number] [facility] [place] [address] 18 Dec, 2012 [facility] [place] [facility] [address] [id number] [facility] [place] [address] 17 Dec, 2012 [facility] [place] [facility] [address] [id number] [facility] [place] [address] 16 Dec, 2012 [facility] [place] [facility] [address] [facility] [id number] [place] [address] 16 Dec, 2012 [facility] [place] [facility] [address] [id number] [facility] [place] [address] 15 Dec, 2012 [facility] [place] [facility] [address] [facility] [id number] [facility] [place] [address] 10 Dec, 2012 [facility] [place] [facility] [address] [id number] [facility] [address] Dec, [facility] [place] [facility] [address] [id number] [place] [address] Dec, [facility] [place] [facility] [address] [id number] [place] [address] Dec, [facility] [place] [facility] [address] [id number] [place] [address] Dec, [facility] [place] [facility] [address] [id number] [place] [address] Dec, [facility] [place] [facility] [address] [id number] [place] [address] Dec, [facility] [place] [facility] [address] [id number] [place] [address] October, [facility] [place] [facility] [address] [id number] [place] [address] October, [facility] [place] [facility] [address] [id number] [place] [address] October, [facility] [place] [facility] [address] [id number] [place] [address] October, [facility] [place] [facility] [address] [id number] [place] [address] October, [facility] [place] [facility] [address] [id number] [place] [address] October, [facility] [place] [facility] [address] [id number] [place] [address] October, [facility] [place] [facility] [address] [id number] [place] [address] Oct, [facility] [place] [facility] [address] [id number] [place] [address] Oct, [facility] [place] [facility] [address] [id number] [place] [address] 24 Oct, 2012 [facility] [place] [facility] [address] [id number] [place] [address] Oct, [facility] [place] [facility] [address] [id number] [place] [address] Oct, [facility] [address] [id number] [place] [address] 18 Oct, 2012 [facility] [place] [facility] [address] [id number] [place] [address] 17 Oct, 2012 [facility] [place] [facility] [address] [id number] [place] [address] 15 Oct, 2012 [facility] [place] [facility] [address] [id number] [place] [address] 12 Oct, 2012 [facility] [place] [facility] [address] [facility] [id number] [place] [address] Oct, [facility] [place] [facility] [address] [id number] [place] [address] Oct, [facility] [place] [facility] [address] [id number] [place] [address] Oct, [facility] [place] [facility] [address] [id number] [place] [address] Aug, [facility] [place] [facility] [address] [id number] [place] [address] Aug, [facility] [place] [facility] [address] [id number] [place] [address] Aug, [facility] [place] [facility] [address] [id number] [place] [address] 06 Aug, 2012 [facility] [place] [facility] [address] [id number] [place] [address] 05 Aug, 2012 [facility] [place] [facility] [address] [id number] [place] [address] 05 Aug, 2012 [facility] [place] [facility] [address] [id number] [place] [address] 20 Aug, 2012 [facility] [place] [facility] [address] [id number] [place] [address] 14 Aug, 2012 [facility] [place] [facility] [address] [id number] [place] [address] 12 Aug, 2012 [facility] [place] [facility] [address] [id number] [place] [address] 11 Aug, 2012 [facility] [place] [facility] [address] [id number] [place] [address] Jul, [facility] [place] [facility] [address] [id number] [place] [address] 15 Jul, 2012 [facility] [place] [facility] [address] [id number] [place] [address] 08 Jul, 2012 [facility] [place] [facility] [address] [id number] [place] [address] 20 Jun, 2012 [facility] [place] [facility] [address] [id number] [place] [address] 18 Jun, 2012 [facility] [place] [facility] [address] [id number] [place] [address] 18 Jun, 2012 [facility] [place] [facility] [address] [id number] [place] [address] 18 Jun, 2012 [facility] [place] [facility] [address] [id number] [place] [address] 18 Jun, 2012 [facility] [place] [facility] [address] [id number] [place] [address] 14 Jun, 2012 [facility] [place] [facility] [address] [id number] [place] [address] 14 Jun, 2012 [facility] [place] [facility] [address] [id number] [place] [address] 13 Jun, 2012 [facility] [place] [facility] [address] [id number] [place] [address] 13 Jun, 2012 [facility] [place] [facility] [address] [id number] [place] [address] 11 Jun, 2012 [facility] [place] [facility] [address] [id number] [place] [address] 11 Jun, 2012 [facility] [place] [facility] [address] [id number] [place] [address] 11 Jun, 2012 [facility] [place] [facility] [address] [id number] [place] [address] 11 Jun, 2012 [facility] [place] [facility] [address] [id number] [place] [address] Jun, [facility] [place] [facility] [address] [id number] [place] [address] Jun, [facility] [place] [facility] [address] [id number] [place] [address] Jun, [facility] [place] [facility] [address] [id number] [place] [address] Jun, [facility] [place] [facility] [address] [id number] [place] [address] Jun, [facility] [place] [facility] [address] [id number] [place] [address] Jun, [facility] [place] [facility] [address] [id number] [place] [address] Jun, [facility] [place] [facility] [address] [id number] [place] [address] Jun, [facility] [place] [facility] [address] [id number] [place] [address] Jun, [facility] [place] [facility] [address] [id number] [place] [address] Jun, [facility] [place] [facility] [address] [id number] [place] [address] May, [facility] [place] [facility] [address] [id number] [place] [address] May, [facility] [place] [facility] [address] [id number] [place] [address] May, [facility] [place] [facility] [address] [id number] [place] [address] May, [facility] [place] [facility] [address] [id number] [place] [address] May, [facility] [address] [id number] [place] [address] May, [facility] [address] [id number] [place] [address] May, [facility] [address] [id number] [place] [address] May, 2011 [facility] [address] [id number] [place] [address] Apr, [facility] [address] [id number] [place] [address] Apr, [facility] [address] [id number] [place] [address] Apr, [facility] [address] [id number] [place] [address] Apr, [facility] [address] [id number] [place] [address] Apr, [facility] [address] [id number] [place] [address] Apr, [facility] [address] [id number] [place] [address] Apr, [facility] [address] [id number] [place] [address] Apr, [facility] [address] [id number] [place] [address] Apr, [facility] [address] [id number] [place] [address] 08 Apr, 2012 [facility] [address] [id number] [place] [address] 04 Apr, 2012 [facility] [address] [id number] [place] [address] 02 Apr, 2012 [facility] [address] [id number] [place] [address] 19 Sep, 2011 [facility] [address] [id number] [place] [address] 18 Sep, 2011 [facility] [address] [id number] [place] [address] 12 Mar, 2011 [facility] [address] [id number] [place] [address] Mar, [facility] [address] [id number] [place] [id number] Mar, [facility] [address] [id number] [place] [id number] Mar, [facility] [address] [id number] [place] [address] Mar, [facility] [address] [id number] [place] [address] Jan, [facility] [address] [id number] [place] [address] Jan, [facility] [address] [id number] [place] [id number] Jan, [facility] [address] [id number] [place] [id number] Jan, [facility] [address] [id number] [place] [address] Jan, [facility] [address] [id number] [place] [address] Jan, [facility] [address] [id number] [place] [address] Jan, [facility] [address] [id number] [place] [address] Jan, [facility] [address] [id number] [place] [address] Jan, [facility] [address] [id number] [place] [address] Jan, [facility] [address] [id number] [place] [address] Jan, [facility] [address] [id number] [place] [address] Dec, [facility] [address] [id number] [place] [address] Dec, [facility] [address] [id number] [place] [address] 26 Dec, 2011 [facility] [address] [id number] [place] [address] 26 Jan, 2012 [facility] [address] [id number] [place] [address] 20 Jan, 2012 [facility] [address] [id number] [place] [address] 19 Jan, 2012 [facility] [address] [id number] [place] [address] 18 Dec, 2011 [facility] [address] [facility] [id number] [place] [address] 17 Jan, 2012 [facility] [address] [id number] [place] [address] 16 Jan, 2012 [facility] [address] [id number] [place] [address] 13 Jan, 2012 [facility] [address] [id number] [place] [address] 13 Jan, 2012 [facility] [address] [id number] [place] [address] Dec, [facility] [address] [id number] [place] [address] Dec, [facility] [address] [id number] [place] [address] 27 Dec, 2011 [facility] [address] [id number] [place] [address] 25 Dec, 2011 [facility] [address] [id number] [place] [address] 18 Dec, 2011 [facility] [address] [id number] [place] [address] 15 Dec, 2011 [facility] [address] [id number] [place] [address] 06 Dec, 2011 [facility] [address] [id number] [place] [address] Dec, [facility] [address] [id number] [place] [address] October, [facility] [address] [facility] [id number] [place] [address] October, [facility] [address] [id number] [place] [address] October, [facility] [address] [id number] [place] [address] October, [facility] [address] [id number] [place] [address] October, [facility] [address] [id number] [place] [address] October, [facility] [address] [id number] [place] [address] Oct, [facility] [address] [id number] [place] [address] Oct, [facility] [address] [id number] [place] [address] Oct, [facility] [address] [id number] [place] [address] Oct, [facility] [address] [id number] [place] [address] Oct, [facility] [address] [id number] [place] [address] Oct, [facility] [address] [id number] [place] [address] Oct, [facility] [address] [id number] [place] [address] Aug, [facility] [address] [id number] [place] [address] Aug, [facility] [address] [id number] [place] [address] Aug, [facility] [address] [id number] [place] [address] 13 Sep, 2011 [facility] [address] [id number] [facility] [address] Aug, [facility] [address] [id number] [facility] [address] 05 Sep, 2011 [facility] [address] [id number] [facility] [address] 27 Aug, 2011 [facility] [address] [id number] [facility] [place] [address] Aug, [facility] [address] [id number] [facility] [address] 08 Aug, 2011 [facility] [address] [id number] [place] [address] Jul, [facility] [address] [id number] [place] [address] Jul, [facility] [address] [id number] [place] [address] Jul, [facility] [address] [id number] [place] [address] Jul, [facility] [address] [id number] [place] [address] Jun, [facility] [address] [id number] [place] [address] Jun, [facility] [address] [id number] [place] [address] May, [facility] [address] [id number] [place] [address] May, [facility] [address] [id number] [place] [address] May, [facility] [address] [id number] [place] [address] May, [facility] [address] [id number] [place] [address] May, [facility] [address] [id number] [place] [address] Apr, [facility] [address] [id number] [place] [address] Apr, [facility] [address] [id number] [place] [address] Apr, [facility] [address] [id number] [place] [address] Jan, [facility] [id number] [place] [address] Dec, [facility] [id number] [place] [address] October, [facility] [id number] [place] [address] Jun, [facility] [id number] [place] [address] Apr, [facility] [id number] [place] [address] Apr, [facility] [address] [id number] [place] [address] Apr, [facility] [address] [id number] [place] [address] Jun, IMMUNIZATIONS No Known Immunizations SOCIAL HISTORY Never Assessed REASON FOR VISIT PLAN OF CARE VITAL SIGNS MEDICATIONS Unknown Medications RESULTS No Results PROCEDURES No Known procedures INSTRUCTIONS MEDICATIONS ADMINISTERED No Known Medications MEDICAL (GENERAL) HISTORY Type Description Date Medical History Psychiatric disorder Medical History Hard of hearing Surgical History Neofibrous tumor Surgical History back injection Surgical History SCS inserted 02/22/16 Hospitalization History Intestinal blockage Hospitalization History past psychiatric hospitalizations x2 Hospitalization History SCS 02/01-
--- OUTSIDE RECORDS SUMMARY | 2020-01-25 12:24 | XMS REPORT ---
Author Author Ana Iraheta Organization [facility] Address [address] [place] [address] Care Team Providers Care It Program Manager Name Role Phone MELISA Iraheta Unavailable PROBLEMS Type Condition ICD9-CM Code [id number] Code Onset Dates Condition S tatus SNOMED Code Problem Chronic hepatitis C without hepatic coma B18.2 Active 679056082 Problem Cannabis abuse F12.10 Active 06349 009 Problem Bipolar 1 disorder F31.9 Active 3 47536053 Problem Attention deficit hyperactivity disorder (ADHD), combi luciano type F90.2 Active 11618243 Problem Attention deficit R41.840 Active 76 496251 Problem Hot flashes due to menopause N95.1 A ctive 273904150 Problem H/O laminectomy Z98.89 Active 1616 84644 Problem Other chronic pain G89.29 Active 8 9516751 Problem Anxiety disorder, unspecified type F41.9 Active 847518834 Problem Bipolar disorder, in partial remission, most rec ent episode hypomanic F31.71 Active 294800335 ALLERGIES No Information ENCOUNTERS Encounter Location Date Diagnosis [facility] [id number] [place] [address] Aug, [facility] [address] [address] Jul, [facility] [address] [address] Jul, [place] [address] [address] Apr, [facility] [address] [address] Mar, Hot flashes due to menopause N95.1 ; Anx iety disorder, unspecified type F41.9 ; Low back pain M54.5 and Encounter for immunization Z23 [facility] [address] [address] Dec, Other chronic pain G89.29 and Low back p ain M54.5 [facility] [address] [address] October, [facility] [address] [address] October, [facility] [address] [address] October, [facility] [address] [address] October, Other chronic pain G89.29 and Chronic he patitis C without hepatic coma B18.2 [facility] [address] [address] Aug, Bipolar disorder, in partial remission, most recent episode hypomanic F31.71 ; Attention deficit hyperactivity disorder (ADHD), combined type F90.2 and Anxiety disorder, unspecified type F41.9 [facility] [address] [address] Aug, [facility] [address] [address] Aug, Bipolar disorder, in partial remission, most recent episode hypomanic F31.71 [facility] [address] [address] Aug, [facility] [address] [address] Aug, Bipolar disorder, in partial remission, most recent episode hypomanic F31.71 [facility] [address] [address] Aug, Bipolar disorder, in partial remission, most recent episode hypomanic F31.71 ; Attention deficit hyperactivity disorder (ADHD), combined type F90.2 and Anxiety disorder, unspecified type F41.9 [facility] [id number] [place] [address] Aug, Low back pain M54.5 and Pain in left wri st M25.532 [facility] [address] [id number] [place] [address] Aug, [facility] [address] [id number] [place] [address] Jun, [facility] [id number] [place] [address] Apr, Bipolar disorder, in partial remission, most recent episode hypomanic F31.71 [facility] [id number] [place] [address] Apr, [facility] [id number] [place] [address] Apr, Bipolar disorder, in partial remission, most recent episode hypomanic F31.71 ; Attention deficit hyperactivity disorder (ADHD), combined type F90.2 ; Anxiety disorder, unspecified type F41.9 and Other residential (current) 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 Z79.899 [facility] [id number] [place] [address] Apr, Bipolar disorder, in partial remission, most recent episode hypomanic F31.71 [facility] [address] [id number] [place] [address] Apr, Bipolar disorder, in partial remission, most recent episode hypomanic F31.71 [facility] [id number] [place] [address] Mar, [facility] [id number] [place] [address] Mar, Bipolar disorder, in partial remission, most recent episode hypomanic F31.71 ; Encounter for immunization Z23 and Low back pain M54.5 [facility] [address] [id number] [place] [address] Mar, Bipolar disorder, in partial remission, most recent episode hypomanic F31.71 [facility] [id number] [place] [address] Mar, Bipolar disorder, in partial remission, most recent episode hypomanic F31.71 [facility] [address] [id number] [place] [address] Jan, Bipolar disorder, in partial remission, most recent episode hypomanic F31.71 [facility] [address] [id number] [place] [address] Jan, Bipolar disorder, in partial remission, most recent episode hypomanic F31.71 [facility] [id number] [place] [address] Dec, Bipolar disorder, in partial remission, most recent episode hypomanic F31.71 [facility] [id number] [place] [address] Dec, Bipolar disorder, in partial remission, most recent episode hypomanic F31.71 ; Attention deficit hyperactivity disorder (ADHD), combined type F90.2 ; Anxiety disorder, unspecified type F41.9 and Other residential (current) 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 Z79.899 [facility] [id number] [place] [address] Dec, Bipolar disorder, in partial remission, most recent episode hypomanic F31.71 [facility] [address] [id number] [place] [address] Dec, Bipolar disorder, in partial remission, most recent episode hypomanic F31.71 [facility] [id number] [place] [address] October, Bipolar disorder, in partial remission, most recent episode hypomanic F31.71 [facility] [address] [id number] [place] [address] October, [facility] [address] [id number] [place] [address] October, [facility] [address] [id number] [place] [address] Oct, Bipolar disorder, in partial remission, most recent episode hypomanic F31.71 ; Attention deficit hyperactivity disorder (ADHD), combined type F90.2 ; Anxiety disorder, unspecified type F41.9 and Encounter for drug screening Z02.83 [facility] [id number] [place] [address] Oct, Bipolar disorder, in partial remission, most recent episode hypomanic F31.71 [facility] [id number] [place] [address] Oct, Bipolar disorder, in partial remission, most recent episode hypomanic F31.71 [facility] [id number] [place] [address] Aug, Bipolar disorder, in partial remission, most recent episode hypomanic F31.71 [facility] [id number] [place] [address] Aug, Bipolar disorder, in partial remission, most recent episode hypomanic F31.71 [facility] [id number] [place] [address] Aug, Bipolar disorder, in partial remission, most recent episode hypomanic F31.71 [facility] [id number] [place] [address] Jul, Bipolar disorder, in partial remission, most recent episode hypomanic F31.71 ; Attention deficit hyperactivity disorder (ADHD), combined type F90.2 and Anxiety disorder, unspecified type F41.9 [facility] [id number] [place] [address] Jul, Bipolar disorder, in partial remission, most recent episode hypomanic F31.71 [facility] [id number] [place] [address] Jun, Bipolar disorder, in partial remission, most recent episode hypomanic F31.71 [facility] [id number] [place] [address] May, Bipolar disorder, in partial remission, most recent episode hypomanic F31.71 [facility] [id number] [place] [address] May, Bipolar disorder, in partial remission, most recent episode hypomanic F31.71 [facility] [address] [address] Apr, [facility] [address] [address] Apr, Bipolar disorder, in partial remission, most recent episode hypomanic F31.71 ; Attention deficit hyperactivity disorder (ADHD), combined type F90.2 ; Anxiety disorder, unspecified type F41.9 and Cannabis abuse F12.10 [facility] [address] [address] Apr, Attention deficit hyperactivity disorder (ADHD), combined type F90.2 [facility] [address] [address] Mar, Attention deficit hyperactivity disorder (ADHD), combined type F90.2 [place] [place] [address] [address] Mar, Anxiety disorder, unspecified type F41.9 [facility] [address] [address] Jan, Attention deficit hyperactivity disorder (ADHD), combined type F90.2 [facility] [address] [address] Jan, Anxiety disorder, unspecified type F41.9 [place] [address] [address] Jan, Other chronic pain G89.29 ; Chronic hepa titis C without hepatic coma B18.2 and Bipolar 1 disorder F31.9 [facility] [address] [address] Dec, Attention deficit hyperactivity disorder (ADHD), combined type F90.2 [facility] [address] [address] Dec, Bipolar disorder, in partial remission, most recent episode hypomanic F31.71 ; Attention deficit hyperactivity disorder (ADHD), combined type F90.2 and Anxiety disorder, unspecified type F41.9 [facility] [address] [address] Dec, Bipolar disorder, in partial remission, most recent episode hypomanic F31.71 ; Attention deficit hyperactivity disorder (ADHD), combined type F90.2 and Anxiety disorder, unspecified type F41.9 [place] [place] [address] [address] Dec, Bipolar 1 disorder F31.9 and Attention d eficit R41.840 [facility] [place] [address] [address] Oct, Other chronic pain G89.29 ; Alopecia L65 .9 and Screening, lipid Z13.220 [facility] [address] [address] Oct, [place] [address] [address] Aug, [facility] [address] [address] Aug, Eustachian tube dysfunction, right H69.8 1 ; Vertigo R42 and Other chronic pain G89.29 [place] [address] [address] Aug, [facility] [address] [address] Jun, [place] [address] [address] Jun, Low back pain M54.5 and Other chronic pa in G89.29 [facility] [address] [address] Jun, [place] [address] [address] May, [place] [address] [address] Jan, [facility] [address] [address] Dec, [facility] [address] [address] Dec, [facility] [address] [address] Jun, [facility] [address] [address] Apr, Eustachian tube dysfunction, unspecified laterality H69.80 ; Hot flashes N95.1 and Encounter for immunization Z23 [facility] [address] [address] Jan, [facility] [address] [address] Jan, [facility] [address] [address] Jan, [facility] [address] [address] Jan, [facility] [address] [address] Jan, Encounter to establish care V65.8 ; Bipo lar 1 disorder 296.7 ; Abdominal pain 789.00 ; Constipation 564.00 ; Hard of hearing 389.9 and Drug abuse 305.90 [facility] [address] [address] Dec, [facility] [address] [address] October, [facility] [address] [address] October, [facility] [address] [address] Oct, [facility] [address] [address] Oct, [facility] [place] [facility] [address] [id number] [place] [address] Oct, [facility] [place] [facility] [address] [id number] [place] [address] Aug, [facility] [place] [facility] [address] [id number] [place] [address] Aug, [facility] [place] [facility] [address] [id number] [place] [address] Aug, [facility] [place] [facility] [address] [id number] [place] [address] Aug, 2014 [facility] [place] [facility] [address] [id number] [place] [address] Aug, 2014 [facility] [place] [facility] [address] [id number] [place] [address] Aug, 2014 [facility] [place] [facility] [address] [id number] [place] [address] Aug, 2014 [facility] [place] [facility] [address] [id number] [place] [address] Aug, 2014 [facility] [place] [facility] [address] [id number] [place] [address] Aug, 2014 [facility] [place] [facility] [address] [id number] [place] [address] Aug, 2014 [facility] [place] [facility] [address] [id number] [place] [address] Aug, 2014 [facility] [place] [facility] [address] [id number] [place] [address] Aug, 2014 [facility] [place] [facility] [address] [id number] [place] [address] Aug, 2014 [facility] [place] [facility] [address] [id number] [place] [address] Aug, 2014 [facility] [place] [facility] [address] [id number] [place] [address] Aug, 2014 [facility] [place] [facility] [address] [id number] [place] [address] Jul, [facility] [place] [facility] [address] [id number] [place] [address] Jul, [facility] [place] [facility] [address] [id number] [place] [address] Jul, [facility] [place] [facility] [address] [id number] [place] [address] Jul, [facility] [place] [facility] [address] [id number] [place] [address] Jul, [facility] [place] [facility] [address] [id number] [place] [address] Jul, [facility] [place] [facility] [address] [id number] [place] [address] Jul, [facility] [place] [facility] [address] [id number] [place] [address] Jul, [facility] [place] [facility] [address] [id number] [place] [address] Jun, [facility] [place] [facility] [address] [id number] [place] [address] Jun, [facility] [place] [facility] [address] [id number] [place] [address] Jun, [facility] [place] [facility] [address] [id number] [place] [address] 29 Jun, 2014 [facility] [place] [facility] [address] [id number] [place] [address] 18 Jun, 2014 [facility] [place] [facility] [address] [id number] [place] [address] 15 Jun, 2014 [facility] [place] [facility] [address] [id number] [place] [address] 15 Jun, 2014 [facility] [place] [facility] [address] [id number] [place] [address] Jun, [facility] [place] [facility] [address] [id number] [place] [address] Jun, [facility] [place] [facility] [address] [id number] [place] [address] Jun, [facility] [place] [facility] [address] [id number] [place] [address] Jun, [facility] [place] [facility] [address] [id number] [place] [address] May, [facility] [place] [facility] [address] [id number] [place] [address] May, [facility] [place] [facility] [address] [id number] [place] [address] May, [facility] [place] [facility] [address] [id number] [place] [address] May, [facility] [place] [facility] [address] [id number] [place] [address] May, [facility] [place] [facility] [id number] [place] [address] May, [facility] [place] [facility] [address] [id number] [place] [address] May, [facility] [place] [facility] [address] [id number] [place] [address] Apr, [facility] [place] [facility] [address] [id number] [place] [address] Apr, [facility] [place] [facility] [id number] [place] [address] Apr, [facility] [place] [facility] [address] [id number] [place] [address] Apr, [facility] [place] [facility] [address] [id number] [place] [address] Apr, [facility] [place] [facility] [id number] [place] [address] Apr, [facility] [place] [facility] [address] [id number] [place] [address] Mar, [facility] [place] [facility] [address] [id number] [place] [address] Mar, 2013 [facility] [place] [facility] [address] [facility] [id number] [facility] [place] [address] Mar, [facility] [place] [facility] [address] [facility] [id number] [facility] [place] [address] Mar, [facility] [place] [facility] [address] [id number] [place] [address] Mar, [facility] [place] [facility] [address] [id number] [place] [address] Mar, [facility] [place] [facility] [address] [facility] [id number] [place] [address] Jan, [facility] [place] [facility] [address] [id number] [place] [address] Jan, [facility] [place] [facility] [address] [id number] [place] [address] Jan, [facility] [place] [facility] [address] [id number] [place] [address] Jan, [facility] [place] [facility] [address] [id number] [place] [address] Dec, [facility] [place] [facility] [address] [id number] [place] [address] Dec, [facility] [place] [facility] [address] [id number] [place] [address] Dec, [facility] [place] [facility] [address] [id number] [place] [address] Dec, [facility] [place] [facility] [address] [id number] [place] [address] Dec, [facility] [place] [facility] [address] [id number] [place] [address] Dec, [facility] [place] [facility] [address] [id number] [place] [address] Dec, [facility] [place] [facility] [address] [id number] [place] [address] Dec, [facility] [place] [facility] [address] [id number] [place] [address] Dec, [facility] [place] [facility] [address] [id number] [place] [address] Dec, [facility] [place] [facility] [address] [id number] [place] [address] Dec, [facility] [place] [facility] [address] [id number] [place] [address] Dec, [facility] [place] [facility] [address] [id number] [place] [address] October, [facility] [place] [facility] [address] [id number] [place] [address] October, [facility] [place] [facility] [address] [id number] [place] [address] October, [facility] [place] [facility] [address] [id number] [place] [address] October, [facility] [place] [facility] [address] [id number] [place] [address] October, [facility] [place] [facility] [address] [id number] [place] [address] October, [facility] [place] [facility] [address] [id number] [place] [address] Oct, [facility] [place] [facility] [address] [id number] [place] [address] Oct, [facility] [place] [facility] [address] [id number] [place] [address] Oct, [facility] [place] [facility] [address] [id number] [place] [address] Oct, [facility] [place] [facility] [address] [id number] [place] [address] Oct, [facility] [place] [facility] [address] [id number] [place] [address] Oct, [facility] [place] [facility] [address] [id number] [place] [address] Oct, [facility] [address] [id number] [place] [address] Oct, [facility] [address] [id number] [place] [address] Oct, [facility] [address] [id number] [place] [address] Oct, [facility] [address] [id number] [place] [address] Oct, [facility] [address] [id number] [place] [address] Oct, [facility] [address] [id number] [place] [address] Aug, [facility] [address] [id number] [place] [address] Aug, [facility] [address] [id number] [place] [address] Aug, [facility] [address] [id number] [place] [address] Aug, [facility] [address] [id number] [place] [address] Aug, [facility] [address] [id number] [place] [address] Aug, [facility] [address] [id number] [place] [address] Aug, [facility] [address] [id number] [place] [address] Aug, [facility] [address] [id number] [place] [address] Aug, [facility] [address] [id number] [place] [address] Aug, [facility] [address] [id number] [place] [address] Aug, [facility] [address] [id number] [place] [address] Aug, [facility] [address] [id number] [place] [address] Aug, [facility] [address] [id number] [place] [address] 20 Aug, 2013 [facility] [address] [id number] [place] [address] Aug, [facility] [address] [id number] [place] [address] Aug, [facility] [address] [id number] [place] [place] [address] Aug, [facility] [place] [facility] [address] [id number] [place] [address] Aug, [facility] [place] [facility] [address] [id number] [place] [address] Aug, [facility] [place] [facility] [address] [id number] [place] [address] 07 Aug, 2013 [facility] [place] [facility] [address] [id number] [place] [address] Aug, [facility] [place] [facility] [address] [id number] [place] [address] Aug, [facility] [place] [facility] [address] [id number] [place] [address] Aug, [facility] [place] [facility] [address] [id number] [place] [address] Aug, [facility] [place] [facility] [address] [id number] [place] [address] Aug, [facility] [place] [facility] [address] [id number] [place] [address] Jul, [facility] [place] [facility] [address] [id number] [place] [address] Jul, [facility] [place] [facility] [address] [id number] [place] [address] Jul, [facility] [place] [facility] [address] [id number] [place] [address] Jul, [facility] [place] [facility] [address] [id number] [place] [address] Jul, [facility] [place] [facility] [address] [id number] [place] [address] Jul, [facility] [place] [facility] [address] [id number] [place] [address] Jul, [facility] [place] [facility] [address] [facility] [id number] [place] [address] Jul, [facility] [place] [facility] [address] [id number] [place] [address] Jul, [facility] [place] [facility] [address] [id number] [place] [address] Jul, [facility] [place] [facility] [address] [id number] [place] [address] Jul, [facility] [place] [facility] [address] [id number] [place] [address] Jul, [facility] [place] [facility] [address] [id number] [place] [address] Jul, [facility] [place] [facility] [address] [id number] [place] [address] Jul, [facility] [place] [facility] [address] [id number] [place] [address] Jul, [facility] [place] [facility] [address] [id number] [place] [address] Jul, [facility] [place] [facility] [address] [id number] [place] [address] Jul, [facility] [place] [facility] [address] [id number] [place] [address] Jul, [facility] [place] [facility] [address] [id number] [place] [address] Jul, [facility] [place] [facility] [address] [id number] [place] [address] Jul, [facility] [place] [facility] [address] [facility] [id number] [place] [address] Jun, [facility] [place] [facility] [address] [id number] [place] [address] Jun, [facility] [place] [facility] [address] [id number] [place] [address] Jun, [facility] [place] [facility] [address] [id number] [place] [address] Jun, [facility] [place] [facility] [address] [id number] [place] [address] Jun, [facility] [place] [facility] [address] [id number] [place] [address] Jun, [facility] [place] [facility] [address] [id number] [place] [address] Jun, [facility] [place] [facility] [address] [id number] [place] [address] Jun, [facility] [place] [facility] [address] [id number] [place] [address] Jun, [facility] [place] [facility] [address] [id number] [place] [address] Jun, [facility] [place] [facility] [address] [id number] [place] [address] Jun, [facility] [place] [facility] [address] [id number] [place] [address] Jun, [facility] [place] [facility] [address] [id number] [place] [address] Jun, [facility] [place] [facility] [address] [id number] [place] [address] Jun, [facility] [place] [facility] [address] [id number] [place] [address] Jun, [facility] [place] [facility] [address] [id number] [place] [address] Jun, [facility] [place] [facility] [address] [id number] [place] [address] 18 Jun, 2013 [facility] [place] [facility] [address] [id number] [place] [address] 17 Jun, 2013 [facility] [place] [facility] [address] [id number] [place] [address] 17 Jun, 2013 [facility] [place] [facility] [address] [id number] [place] [address] 13 Jun, 2013 [facility] [place] [facility] [address] [id number] [place] [address] 12 Jun, 2013 [facility] [place] [facility] [address] [id number] [place] [address] 12 Jun, 2013 [facility] [place] [facility] [address] [id number] [place] [address] Jun, [facility] [place] [facility] [address] [id number] [place] [address] 05 Jun, 2013 [facility] [place] [facility] [address] [id number] [place] [address] 05 Jun, 2013 [facility] [place] [facility] [address] [id number] [place] [address] Jun, [facility] [place] [facility] [address] [id number] [place] [address] Jun, [facility] [place] [facility] [address] [id number] [place] [address] May, [facility] [place] [facility] [address] [id number] [place] [address] May, [facility] [place] [facility] [address] [id number] [place] [address] May, [facility] [place] [facility] [id number] [place] [address] May, [facility] [place] [facility] [address] [id number] [place] [address] May, [facility] [place] [facility] [address] [id number] [place] [address] 05 May, 2013 [facility] [place] [facility] [address] [id number] [place] [address] 30 Apr, 2012 [facility] [place] [facility] [address] [id number] [place] [address] Apr, 2012 [facility] [place] [facility] [address] [id number] [place] [address] Apr, 2012 [facility] [place] [facility] [address] [id number] [place] [address] Apr, 2012 [facility] [place] [facility] [address] [id number] [place] [address] Apr, 2012 [facility] [place] [facility] [address] [id number] [place] [address] Apr, 2012 [facility] [place] [facility] [address] [id number] [place] [address] 15 Apr, 2013 [facility] [place] [facility] [address] [id number] [place] [address] Apr, 2012 [facility] [place] [facility] [address] [id number] [place] [address] 26 Sep, 2012 [facility] [place] [facility] [address] [id number] [place] [address] 24 Sep, 2012 [facility] [place] [facility] [address] [id number] [place] [address] 17 Sep, 2012 [facility] [place] [facility] [address] [id number] [place] [address] 17 Sep, 2012 [facility] [place] [facility] [address] [id number] [place] [address] 11 Sep, 2012 [facility] [place] [facility] [address] [id number] [place] [address] 10 Sep, 2012 [facility] [place] [facility] [address] [id number] [place] [address] 05 Sep, 2012 [facility] [place] [facility] [address] [id number] [place] [address] 04 Sep, 2012 [facility] [place] [facility] [address] [id number] [facility] [place] [address] Jan, [facility] [place] [facility] [address] [id number] [place] [address] Jan, [facility] [place] [facility] [address] [facility] [id number] [facility] [place] [address] 14 Jan, 2013 [facility] [place] [facility] [address] [id number] [facility] [place] [address] Jan, [facility] [place] [facility] [address] [facility] [id number] [place] [address] Jan, [facility] [place] [facility] [address] [facility] [id number] [place] [address] Jan, [facility] [place] [facility] [address] [facility] [id number] [place] [address] 31 Dec, 2012 [facility] [place] [facility] [address] [id number] [facility] [place] [address] 24 Dec, 2012 [facility] [place] [facility] [address] [id number] [facility] [place] [address] Dec, [facility] [place] [facility] [address] [facility] [id number] [facility] [place] [address] Dec, [facility] [place] [facility] [address] [id number] [facility] [place] [address] 18 Dec, 2012 [facility] [place] [facility] [address] [id number] [facility] [place] [address] 17 Dec, 2012 [facility] [place] [facility] [address] [id number] [facility] [place] [address] 16 Dec, 2012 [facility] [place] [facility] [address] [facility] [id number] [place] [address] 16 Dec, 2012 [facility] [place] [facility] [address] [id number] [facility] [place] [address] 15 Dec, 2012 [facility] [place] [facility] [address] [facility] [id number] [facility] [place] [address] 10 Dec, 2012 [facility] [place] [facility] [address] [id number] [facility] [place] [address] Dec, [facility] [place] [facility] [address] [id number] [place] [address] Dec, [facility] [place] [facility] [address] [id number] [place] [address] Dec, [facility] [place] [facility] [address] [id number] [place] [address] Dec, [facility] [place] [facility] [address] [id number] [place] [address] Dec, [facility] [place] [facility] [address] [id number] [place] [address] Dec, [facility] [place] [facility] [address] [id number] [place] [address] October, [facility] [place] [facility] [address] [id number] [place] [address] October, [facility] [place] [facility] [address] [id number] [place] [address] October, [facility] [place] [facility] [address] [id number] [place] [address] October, [facility] [place] [facility] [address] [id number] [place] [address] October, [facility] [place] [facility] [address] [id number] [place] [address] October, [facility] [place] [facility] [address] [id number] [place] [address] October, [facility] [place] [facility] [address] [id number] [place] [address] Oct, [facility] [place] [facility] [address] [id number] [place] [address] Oct, [facility] [place] [facility] [address] [id number] [place] [address] 24 Oct, 2012 [facility] [place] [facility] [address] [id number] [place] [address] Oct, [facility] [place] [facility] [address] [id number] [place] [address] Oct, [facility] [address] [id number] [place] [address] 18 Oct, 2012 [facility] [place] [facility] [address] [id number] [place] [address] 17 Oct, 2012 [facility] [place] [facility] [address] [id number] [place] [address] 15 Oct, 2012 [facility] [place] [facility] [address] [id number] [place] [address] 12 Oct, 2012 [facility] [place] [facility] [address] [facility] [id number] [place] [address] Oct, [facility] [place] [facility] [address] [id number] [place] [address] Oct, [facility] [place] [facility] [address] [id number] [place] [address] Oct, [facility] [place] [facility] [address] [id number] [place] [address] Aug, [facility] [place] [facility] [address] [id number] [place] [address] Aug, [facility] [place] [facility] [address] [id number] [place] [address] Aug, [facility] [place] [facility] [address] [id number] [place] [address] 06 Aug, 2012 [facility] [place] [facility] [address] [id number] [place] [address] 05 Aug, 2012 [facility] [place] [facility] [address] [id number] [place] [address] 05 Aug, 2012 [facility] [place] [facility] [address] [id number] [place] [address] 20 Aug, 2012 [facility] [place] [facility] [address] [id number] [place] [address] 14 Aug, 2012 [facility] [place] [facility] [address] [id number] [place] [address] 12 Aug, 2012 [facility] [place] [facility] [address] [id number] [place] [address] 11 Aug, 2012 [facility] [place] [facility] [address] [id number] [place] [address] Jul, [facility] [place] [facility] [address] [id number] [place] [address] 15 Jul, 2012 [facility] [place] [facility] [address] [id number] [place] [address] 08 Jul, 2012 [facility] [place] [facility] [address] [id number] [place] [address] 20 Jun, 2012 [facility] [place] [facility] [address] [id number] [place] [address] 18 Jun, 2012 [facility] [place] [facility] [address] [id number] [place] [address] 18 Jun, 2012 [facility] [place] [facility] [address] [id number] [place] [address] 18 Jun, 2012 [facility] [place] [facility] [address] [id number] [place] [address] 18 Jun, 2012 [facility] [place] [facility] [address] [id number] [place] [address] 14 Jun, 2012 [facility] [place] [facility] [address] [id number] [place] [address] 14 Jun, 2012 [facility] [place] [facility] [address] [id number] [place] [address] 13 Jun, 2012 [facility] [place] [facility] [address] [id number] [place] [address] 13 Jun, 2012 [facility] [place] [facility] [address] [id number] [place] [address] 11 Jun, 2012 [facility] [place] [facility] [address] [id number] [place] [address] 11 Jun, 2012 [facility] [place] [facility] [address] [id number] [place] [address] 11 Jun, 2012 [facility] [place] [facility] [address] [id number] [place] [address] 11 Jun, 2012 [facility] [place] [facility] [address] [id number] [place] [address] Jun, [facility] [place] [facility] [address] [id number] [place] [address] Jun, [facility] [place] [facility] [address] [id number] [place] [address] Jun, [facility] [place] [facility] [address] [id number] [place] [address] Jun, [facility] [place] [facility] [address] [id number] [place] [address] Jun, [facility] [place] [facility] [address] [id number] [place] [address] Jun, [facility] [place] [facility] [address] [id number] [place] [address] Jun, [facility] [place] [facility] [address] [id number] [place] [address] Jun, [facility] [place] [facility] [address] [id number] [place] [address] Jun, [facility] [place] [facility] [address] [id number] [place] [address] Jun, [facility] [place] [facility] [address] [id number] [place] [address] May, [facility] [place] [facility] [address] [id number] [place] [address] May, [facility] [place] [facility] [address] [id number] [place] [address] May, [facility] [place] [facility] [address] [id number] [place] [address] May, [facility] [place] [facility] [address] [id number] [place] [address] May, [facility] [place] [facility] [address] [id number] [place] [address] May, [facility] [place] [facility] [address] [id number] [place] [address] May, [facility] [place] [facility] [address] [id number] [place] [address] May, 2011 [facility] [place] [facility] [address] [id number] [place] [address] Apr, [facility] [place] [facility] [address] [id number] [place] [address] Apr, [facility] [place] [facility] [address] [id number] [place] [address] Apr, [facility] [place] [facility] [address] [id number] [place] [address] Apr, [facility] [address] [id number] [place] [address] Apr, [facility] [address] [id number] [place] [address] Apr, [facility] [address] [id number] [place] [address] Apr, [facility] [address] [id number] [place] [address] Apr, [facility] [address] [id number] [place] [address] Apr, [facility] [address] [id number] [place] [address] 08 Apr, 2012 [facility] [address] [id number] [place] [address] 04 Apr, 2012 [facility] [address] [id number] [place] [address] 02 Apr, 2012 [facility] [address] [id number] [place] [address] 19 Sep, 2011 [facility] [address] [id number] [place] [address] 18 Sep, 2011 [facility] [address] [id number] [place] [address] 12 Mar, 2011 [facility] [address] [id number] [place] [address] Mar, [facility] [address] [id number] [place] [id number] Mar, [facility] [address] [id number] [place] [id number] Mar, [facility] [address] [id number] [place] [address] Mar, [facility] [address] [id number] [place] [address] Jan, [facility] [address] [id number] [place] [address] Jan, [facility] [address] [id number] [place] [id number] Jan, [facility] [address] [id number] [place] [id number] Jan, [facility] [address] [id number] [place] [address] Jan, [facility] [address] [id number] [place] [address] Jan, [facility] [address] [id number] [place] [address] Jan, [facility] [address] [id number] [place] [address] Jan, [facility] [address] [id number] [place] [address] Jan, [facility] [address] [id number] [place] [address] Jan, [facility] [address] [id number] [place] [address] Jan, [facility] [address] [id number] [place] [address] Dec, [facility] [address] [id number] [place] [address] Dec, [facility] [address] [id number] [place] [address] 26 Dec, 2011 [facility] [address] [id number] [place] [address] 26 Jan, 2012 [facility] [address] [id number] [place] [address] 20 Jan, 2012 [facility] [address] [id number] [place] [address] 19 Jan, 2012 [facility] [address] [id number] [place] [address] 18 Dec, 2011 [facility] [address] [facility] [id number] [place] [address] 17 Jan, 2012 [facility] [address] [id number] [place] [address] 16 Jan, 2012 [facility] [address] [id number] [place] [address] 13 Jan, 2012 [facility] [address] [id number] [place] [address] 13 Jan, 2012 [facility] [address] [id number] [place] [address] Dec, [facility] [address] [id number] [place] [address] Dec, [facility] [address] [id number] [place] [address] 27 Dec, 2011 [facility] [address] [id number] [place] [address] 25 Dec, 2011 [facility] [address] [id number] [place] [address] 18 Dec, 2011 [facility] [address] [id number] [place] [address] 15 Dec, 2011 [facility] [address] [id number] [place] [address] 06 Dec, 2011 [facility] [address] [id number] [place] [address] Dec, [facility] [address] [id number] [place] [address] October, [facility] [address] [id number] [place] [address] October, [facility] [address] [id number] [place] [address] October, [facility] [address] [id number] [place] [address] October, [facility] [address] [id number] [place] [address] October, [facility] [address] [id number] [place] [address] October, [facility] [address] [id number] [place] [address] Oct, [facility] [address] [id number] [place] [address] Oct, [facility] [address] [id number] [place] [address] Oct, [facility] [address] [id number] [place] [address] Oct, [facility] [address] [id number] [place] [address] Oct, [facility] [address] [id number] [place] [address] Oct, [facility] [address] [id number] [place] [address] Oct, [facility] [address] [id number] [place] [address] Aug, [facility] [address] [id number] [place] [address] Aug, [facility] [address] [id number] [place] [address] Aug, [facility] [address] [id number] [place] [address] 13 Sep, 2011 [facility] [address] [id number] [facility] [place] [address] Aug, [facility] [address] [id number] [facility] [place] [address] 05 Sep, 2011 [facility] [address] [id number] [facility] [place] [address] 27 Aug, 2011 [facility] [address] [id number] [facility] [place] [address] Aug, [facility] [address] [id number] [facility] [place] [address] 08 Aug, 2011 [facility] [address] [id number] [place] [address] Jul, [facility] [address] [id number] [place] [address] Jul, [facility] [address] [id number] [place] [address] Jul, [facility] [address] [id number] [place] [address] Jul, [facility] [address] [id number] [place] [address] Jun, [facility] [address] [id number] [place] [address] Jun, [facility] [address] [id number] [place] [address] May, [facility] [address] [id number] [place] [address] May, [facility] [address] [id number] [place] [address] May, [facility] [address] [id number] [place] [address] May, [facility] [address] [id number] [place] [address] May, [facility] [address] [id number] [place] [address] Apr, [facility] [address] [id number] [place] [address] Apr, [facility] [address] [id number] [place] [address] Apr, [facility] [address] [id number] [place] [address] Jan, [facility] [id number] [place] [address] Dec, [facility] [id number] [place] [address] October, [facility] [id number] [place] [address] Jun, [facility] [id number] [place] [address] Apr, [facility] [id number] [place] [address] Apr, [facility] [address] [id number] [place] [address] Apr, [facility] [address] [id number] [place] [address] Jun, IMMUNIZATIONS No Known Immunizations SOCIAL HISTORY [...]
--- OUTSIDE RECORDS SUMMARY | 2020-01-25 12:25 | XMS REPORT ---
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 Name Role Phone MELISA Iraheta Unavailable PROBLEMS Type Condition ICD9-CM Code [id number] Code Onset Dates Condition S tatus SNOMED Code Problem Chronic hepatitis C without hepatic coma B18.2 Active 690160400 Problem Cannabis abuse F12.10 Active 08239 009 Problem Bipolar 1 disorder F31.9 Active 3 46924650 Problem Attention deficit hyperactivity disorder (ADHD), combi luciano type F90.2 Active 71071607 Problem Attention deficit R41.840 Active 76 828577 Problem Hot flashes due to menopause N95.1 A ctive 757068311 Problem H/O laminectomy Z98.89 Active 1616 33365 Problem Other chronic pain G89.29 Active 8 5790708 Problem Anxiety disorder, unspecified type F41.9 Active 096485330 Problem Bipolar disorder, in partial remission, most rec ent episode hypomanic F31.71 Active 482927616 ALLERGIES No Information ENCOUNTERS Encounter Location Date Diagnosis [facility] [facility] [id number] [place] [address] Aug, [facility] [address] [address] Jul, [facility] [address] [address] Jul, [place] [address] [address] Apr, [facility] [address] [address] Mar, Hot flashes due to menopause N95.1 ; Anx iety disorder, unspecified type F41.9 ; Low back pain M54.5 and Encounter for immunization Z23 [facility] [address] [address] Dec, Other chronic pain G89.29 and Low back p ain M54.5 [facility] [address] [address] October, [facility] [address] [address] October, [facility] [address] [address] October, [facility] [address] [address] October, Other chronic pain G89.29 and Chronic he patitis C without hepatic coma B18.2 [facility] [address] [address] Aug, Bipolar disorder, in partial remission, most recent episode hypomanic F31.71 ; Attention deficit hyperactivity disorder (ADHD), combined type F90.2 and Anxiety disorder, unspecified type F41.9 [facility] [address] [address] Aug, [place] [address] [address] Aug, Bipolar disorder, in partial remission, most recent episode hypomanic F31.71 [facility] [address] [address] Aug, [facility] [address] [address] Aug, Bipolar disorder, in partial remission, most recent episode hypomanic F31.71 [place] [address] [address] Aug, Bipolar disorder, in partial remission, most recent episode hypomanic F31.71 ; Attention deficit hyperactivity disorder (ADHD), combined type F90.2 and Anxiety disorder, unspecified type F41.9 [facility] [id number] [place] [address] Aug, Low back pain M54.5 and Pain in left wri st M25.532 [facility] [address] [id number] [place] [address] Aug, [facility] [address] [id number] [place] [address] Jun, [facility] [id number] [place] [address] Apr, Bipolar disorder, in partial remission, most recent episode hypomanic F31.71 [facility] [id number] [place] [address] Apr, [facility] [id number] [place] [address] Apr, Bipolar disorder, in partial remission, most recent episode hypomanic F31.71 ; Attention deficit hyperactivity disorder (ADHD), combined type F90.2 ; Anxiety disorder, unspecified type F41.9 and Other group home (current) 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 Z79.899 [facility] [id number] [place] [address] Apr, Bipolar disorder, in partial remission, most recent episode hypomanic F31.71 [facility] [address] [id number] [place] [address] Apr, Bipolar disorder, in partial remission, most recent episode hypomanic F31.71 [facility] [id number] [place] [address] Mar, [facility] [id number] [place] [address] Mar, Bipolar disorder, in partial remission, most recent episode hypomanic F31.71 ; Encounter for immunization Z23 and Low back pain M54.5 [facility] [address] [id number] [place] [address] Mar, Bipolar disorder, in partial remission, most recent episode hypomanic F31.71 [facility] [id number] [place] [address] Mar, Bipolar disorder, in partial remission, most recent episode hypomanic F31.71 [facility] [address] [id number] [place] [address] Jan, Bipolar disorder, in partial remission, most recent episode hypomanic F31.71 [facility] [address] [id number] [place] [address] Jan, Bipolar disorder, in partial remission, most recent episode hypomanic F31.71 [facility] [id number] [place] [address] Dec, Bipolar disorder, in partial remission, most recent episode hypomanic F31.71 [facility] [id number] [place] [address] Dec, Bipolar disorder, in partial remission, most recent episode hypomanic F31.71 ; Attention deficit hyperactivity disorder (ADHD), combined type F90.2 ; Anxiety disorder, unspecified type F41.9 and Other group home (current) 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 Z79.899 [facility] [id number] [place] [address] Dec, Bipolar disorder, in partial remission, most recent episode hypomanic F31.71 [facility] [address] [id number] [place] [address] Dec, Bipolar disorder, in partial remission, most recent episode hypomanic F31.71 [facility] [id number] [place] [address] October, Bipolar disorder, in partial remission, most recent episode hypomanic F31.71 [facility] [address] [id number] [place] [address] October, [facility] [address] [id number] [place] [address] October, [facility] [address] [id number] [place] [address] Oct, Bipolar disorder, in partial remission, most recent episode hypomanic F31.71 ; Attention deficit hyperactivity disorder (ADHD), combined type F90.2 ; Anxiety disorder, unspecified type F41.9 and Encounter for drug screening Z02.83 [facility] [id number] [place] [address] Oct, Bipolar disorder, in partial remission, most recent episode hypomanic F31.71 [facility] [id number] [place] [address] Oct, Bipolar disorder, in partial remission, most recent episode hypomanic F31.71 [facility] [id number] [place] [address] Aug, Bipolar disorder, in partial remission, most recent episode hypomanic F31.71 [facility] [id number] [place] [address] Aug, Bipolar disorder, in partial remission, most recent episode hypomanic F31.71 [facility] [id number] [place] [address] Aug, Bipolar disorder, in partial remission, most recent episode hypomanic F31.71 [facility] [id number] [place] [address] Jul, Bipolar disorder, in partial remission, most recent episode hypomanic F31.71 ; Attention deficit hyperactivity disorder (ADHD), combined type F90.2 and Anxiety disorder, unspecified type F41.9 [facility] [id number] [place] [address] Jul, Bipolar disorder, in partial remission, most recent episode hypomanic F31.71 [facility] [id number] [place] [address] Jun, Bipolar disorder, in partial remission, most recent episode hypomanic F31.71 [facility] [id number] [place] [address] May, Bipolar disorder, in partial remission, most recent episode hypomanic F31.71 [facility] [id number] [place] [address] May, Bipolar disorder, in partial remission, most recent episode hypomanic F31.71 [facility] [address] [address] Apr, [facility] [address] [address] Apr, Bipolar disorder, in partial remission, most recent episode hypomanic F31.71 ; Attention deficit hyperactivity disorder (ADHD), combined type F90.2 ; Anxiety disorder, unspecified type F41.9 and Cannabis abuse F12.10 [facility] [address] [address] Apr, Attention deficit hyperactivity disorder (ADHD), combined type F90.2 [place] [address] [address] Mar, Attention deficit hyperactivity disorder (ADHD), combined type F90.2 [place] [address] [address] Mar, Anxiety disorder, unspecified type F41.9 [facility] [address] [address] Jan, Attention deficit hyperactivity disorder (ADHD), combined type F90.2 [facility] [address] [address] Jan, Anxiety disorder, unspecified type F41.9 [place] [address] [address] Jan, Other chronic pain G89.29 ; Chronic hepa titis C without hepatic coma B18.2 and Bipolar 1 disorder F31.9 [facility] [address] [address] Dec, Attention deficit hyperactivity disorder (ADHD), combined type F90.2 [facility] [address] [address] Dec, Bipolar disorder, in partial remission, most recent episode hypomanic F31.71 ; Attention deficit hyperactivity disorder (ADHD), combined type F90.2 and Anxiety disorder, unspecified type F41.9 [place] [address] [address] Dec, Bipolar disorder, in partial remission, most recent episode hypomanic F31.71 ; Attention deficit hyperactivity disorder (ADHD), combined type F90.2 and Anxiety disorder, unspecified type F41.9 [place] [address] [address] Dec, Bipolar 1 disorder F31.9 and Attention d eficit R41.840 [place] [address] [address] Oct, Other chronic pain G89.29 ; Alopecia L65 .9 and Screening, lipid Z13.220 [place] [address] [address] Oct, [place] [address] [address] Aug, [place] [address] [address] Aug, Eustachian tube dysfunction, right H69.8 1 ; Vertigo R42 and Other chronic pain G89.29 [place] [address] [address] Aug, [place] [address] [address] Jun, [place] [address] [address] Jun, Low back pain M54.5 and Other chronic pa in G89.29 [place] [address] [address] Jun, [place] [address] [address] May, [place] [address] [address] Jan, [facility] [address] [address] Dec, [facility] [address] [address] Dec, [facility] [address] [address] Jun, [facility] [address] [address] Apr, Eustachian tube dysfunction, unspecified laterality H69.80 ; Hot flashes N95.1 and Encounter for immunization Z23 [facility] [address] [address] Jan, [facility] [address] [address] Jan, [facility] [address] [address] Jan, [facility] [address] [address] Jan, [facility] [address] [address] Jan, Encounter to establish care V65.8 ; Bipo lar 1 disorder 296.7 ; Abdominal pain 789.00 ; Constipation 564.00 ; Hard of hearing 389.9 and Drug abuse 305.90 [facility] [address] [address] Dec, [facility] [address] [address] October, [facility] [address] [address] October, [facility] [address] [address] Oct, [facility] [address] [address] Oct, [facility] [place] [facility] [address] [id number] [place] [address] Oct, [facility] [place] [facility] [address] [id number] [place] [address] Aug, [facility] [place] [facility] [address] [id number] [place] [address] Aug, [facility] [place] [facility] [address] [id number] [place] [address] Aug, [facility] [place] [facility] [address] [id number] [place] [address] Aug, 2014 [facility] [place] [facility] [address] [id number] [place] [address] Aug, 2014 [facility] [place] [facility] [address] [id number] [place] [address] Aug, 2014 [facility] [place] [facility] [address] [id number] [place] [address] Aug, 2014 [facility] [place] [facility] [address] [id number] [place] [address] Aug, 2014 [facility] [place] [facility] [address] [id number] [place] [address] Aug, 2014 [facility] [place] [facility] [address] [id number] [place] [address] Aug, 2014 [facility] [place] [facility] [address] [id number] [place] [address] Aug, 2014 [facility] [place] [facility] [address] [id number] [place] [address] Aug, 2014 [facility] [place] [facility] [address] [id number] [place] [address] Aug, 2014 [facility] [place] [facility] [address] [id number] [place] [address] Aug, 2014 [facility] [place] [facility] [address] [id number] [place] [address] Aug, 2014 [facility] [place] [facility] [address] [id number] [place] [address] Jul, [facility] [place] [facility] [address] [id number] [place] [address] Jul, [facility] [place] [facility] [address] [id number] [place] [address] Jul, [facility] [place] [facility] [address] [id number] [place] [address] Jul, [facility] [place] [facility] [address] [id number] [place] [address] Jul, [facility] [place] [facility] [address] [id number] [place] [address] Jul, [facility] [place] [facility] [address] [id number] [place] [address] Jul, [facility] [place] [facility] [address] [id number] [place] [address] Jul, [facility] [place] [facility] [address] [id number] [place] [address] Jun, [facility] [place] [facility] [address] [id number] [place] [address] Jun, [facility] [place] [facility] [address] [id number] [place] [address] Jun, [facility] [place] [facility] [address] [id number] [place] [address] 29 Jun, 2014 [facility] [place] [facility] [address] [id number] [place] [address] 18 Jun, 2014 [facility] [place] [facility] [address] [id number] [place] [address] 15 Jun, 2014 [facility] [place] [facility] [address] [id number] [place] [address] 15 Jun, 2014 [facility] [place] [facility] [address] [id number] [place] [address] Jun, [facility] [place] [facility] [address] [id number] [place] [address] Jun, [facility] [place] [facility] [address] [id number] [place] [address] Jun, [facility] [place] [facility] [address] [id number] [place] [address] Jun, [facility] [place] [facility] [address] [id number] [place] [address] May, [facility] [place] [facility] [address] [id number] [place] [address] May, [facility] [place] [facility] [address] [id number] [place] [address] May, [facility] [place] [facility] [address] [id number] [place] [address] May, [facility] [place] [facility] [address] [id number] [place] [address] May, [facility] [place] [facility] [id number] [place] [address] May, [facility] [place] [facility] [address] [id number] [place] [address] May, [facility] [place] [facility] [address] [id number] [place] [address] Apr, [facility] [place] [facility] [address] [id number] [place] [address] Apr, [facility] [place] [facility] [id number] [place] [address] Apr, [facility] [place] [facility] [address] [id number] [place] [address] Apr, [facility] [place] [facility] [address] [id number] [place] [address] Apr, [facility] [place] [facility] [id number] [place] [address] Apr, [facility] [place] [facility] [address] [id number] [place] [address] Mar, [facility] [place] [facility] [address] [id number] [place] [address] Mar, 2013 [facility] [place] [facility] [address] [facility] [id number] [facility] [place] [address] Mar, [facility] [place] [facility] [address] [facility] [id number] [facility] [place] [address] Mar, [facility] [place] [facility] [address] [id number] [place] [address] Mar, [facility] [place] [facility] [address] [id number] [place] [address] Mar, [facility] [place] [facility] [address] [facility] [id number] [place] [address] Jan, [facility] [place] [facility] [address] [id number] [place] [address] Jan, [facility] [place] [facility] [address] [id number] [place] [address] Jan, [facility] [place] [facility] [address] [id number] [place] [address] Jan, [facility] [place] [facility] [address] [id number] [place] [address] Dec, [facility] [place] [facility] [address] [id number] [place] [address] Dec, [facility] [place] [facility] [address] [id number] [place] [address] Dec, [facility] [place] [facility] [address] [id number] [place] [address] Dec, [facility] [place] [facility] [address] [id number] [place] [address] Dec, [facility] [place] [facility] [address] [id number] [place] [address] Dec, [facility] [place] [facility] [address] [id number] [place] [address] Dec, [facility] [place] [facility] [address] [id number] [place] [address] Dec, [facility] [place] [facility] [address] [id number] [place] [address] Dec, [facility] [place] [facility] [address] [id number] [place] [address] Dec, [facility] [place] [facility] [address] [id number] [place] [address] Dec, [facility] [place] [facility] [address] [id number] [place] [address] Dec, [facility] [place] [facility] [address] [id number] [place] [address] October, [facility] [place] [facility] [address] [id number] [place] [address] October, [facility] [place] [facility] [address] [id number] [place] [address] October, [facility] [place] [facility] [address] [id number] [place] [address] October, [facility] [place] [facility] [address] [id number] [place] [address] October, [facility] [place] [facility] [address] [id number] [place] [address] October, [facility] [place] [facility] [address] [id number] [place] [address] Oct, [facility] [place] [facility] [address] [id number] [place] [address] Oct, [facility] [place] [facility] [address] [id number] [place] [address] Oct, [facility] [place] [facility] [address] [id number] [place] [address] Oct, [facility] [place] [facility] [address] [id number] [place] [address] Oct, [facility] [place] [facility] [address] [id number] [place] [address] Oct, [facility] [place] [facility] [address] [id number] [place] [address] Oct, [facility] [place] [facility] [address] [id number] [place] [address] Oct, [facility] [place] [facility] [address] [id number] [place] [address] Oct, [facility] [place] [facility] [address] [id number] [place] [address] Oct, [facility] [place] [facility] [address] [id number] [place] [address] Oct, [facility] [place] [facility] [address] [id number] [place] [address] Oct, [facility] [place] [facility] [address] [id number] [place] [address] Aug, [facility] [place] [facility] [address] [id number] [place] [address] Aug, [facility] [place] [facility] [address] [id number] [place] [address] Aug, [facility] [place] [facility] [address] [id number] [place] [address] Aug, [facility] [place] [facility] [address] [id number] [place] [address] Aug, [facility] [place] [facility] [address] [id number] [place] [address] Aug, [facility] [place] [facility] [address] [id number] [place] [address] Aug, [facility] [address] [id number] [place] [address] Aug, [facility] [address] [id number] [place] [address] Aug, [facility] [address] [id number] [place] [address] Aug, [facility] [address] [id number] [place] [address] Aug, [facility] [address] [id number] [place] [address] Aug, [facility] [address] [id number] [place] [address] Aug, [facility] [address] [id number] [place] [address] 20 Aug, 2013 [facility] [address] [id number] [place] [address] Aug, [facility] [address] [id number] [place] [address] Aug, [facility] [address] [id number] [place] [address] Aug, [facility] [address] [id number] [place] [address] Aug, [facility] [address] [id number] [place] [address] Aug, [facility] [address] [id number] [place] [address] 07 Aug, 2013 [facility] [address] [id number] [place] [address] Aug, [facility] [address] [id number] [place] [address] Aug, [facility] [address] [id number] [place] [address] Aug, [facility] [address] [id number] [place] [address] Aug, [facility] [address] [id number] [place] [address] Aug, [facility] [address] [id number] [place] [address] Jul, [facility] [address] [id number] [place] [address] Jul, [facility] [address] [id number] [place] [address] Jul, [facility] [address] [id number] [place] [address] Jul, [facility] [address] [id number] [place] [address] Jul, [facility] [address] [id number] [place] [address] Jul, [facility] [address] [id number] [place] [address] Jul, [facility] [address] [facility] [id number] [place] [address] Jul, [facility] [address] [id number] [place] [address] Jul, [facility] [address] [id number] [place] [address] Jul, [facility] [address] [id number] [place] [address] Jul, [facility] [address] [id number] [place] [address] Jul, [facility] [address] [id number] [place] [address] Jul, [facility] [address] [id number] [place] [address] Jul, [facility] [address] [id number] [place] [address] Jul, [facility] [address] [id number] [place] [address] Jul, [facility] [place] [facility] [address] [id number] [place] [address] Jul, [facility] [place] [facility] [address] [id number] [place] [address] Jul, [facility] [place] [facility] [address] [id number] [place] [address] Jul, [facility] [place] [facility] [address] [id number] [place] [address] Jul, [facility] [place] [facility] [address] [facility] [id number] [place] [address] Jun, [facility] [place] [facility] [address] [id number] [place] [address] Jun, [facility] [place] [facility] [address] [id number] [place] [address] Jun, [facility] [place] [facility] [address] [id number] [place] [address] Jun, [facility] [place] [facility] [address] [id number] [place] [address] Jun, [facility] [place] [facility] [address] [id number] [place] [address] Jun, [facility] [place] [facility] [address] [id number] [place] [address] Jun, [facility] [place] [facility] [address] [id number] [place] [address] Jun, [facility] [place] [facility] [address] [id number] [place] [address] Jun, [facility] [place] [facility] [address] [id number] [place] [address] Jun, [facility] [place] [facility] [address] [id number] [place] [address] Jun, [facility] [place] [facility] [address] [id number] [place] [address] Jun, [facility] [place] [facility] [address] [id number] [place] [address] Jun, [facility] [place] [facility] [address] [id number] [place] [address] Jun, [facility] [place] [facility] [address] [id number] [place] [address] Jun, [facility] [place] [facility] [address] [id number] [place] [address] Jun, [facility] [place] [facility] [address] [id number] [place] [address] 18 Jun, 2013 [facility] [place] [facility] [address] [id number] [place] [address] 17 Jun, 2013 [facility] [place] [facility] [address] [id number] [place] [address] 17 Jun, 2013 [facility] [place] [facility] [address] [id number] [place] [address] 13 Jun, 2013 [facility] [place] [facility] [address] [id number] [place] [address] 12 Jun, 2013 [facility] [place] [facility] [address] [id number] [place] [address] 12 Jun, 2013 [facility] [place] [facility] [address] [id number] [place] [address] Jun, [facility] [place] [facility] [address] [id number] [place] [address] 05 Jun, 2013 [facility] [place] [facility] [address] [id number] [place] [address] 05 Jun, 2013 [facility] [place] [facility] [address] [id number] [place] [address] Jun, [facility] [place] [facility] [address] [id number] [place] [address] Jun, [facility] [place] [facility] [address] [id number] [place] [address] May, [facility] [place] [facility] [address] [id number] [place] [address] May, [facility] [place] [facility] [address] [id number] [place] [address] May, [facility] [place] [facility] [address] [place] [id number] [place] [address] May, [facility] [place] [facility] [address] [id number] [place] [address] May, [facility] [place] [facility] [address] [id number] [place] [address] 05 May, 2013 [facility] [place] [facility] [address] [id number] [place] [address] 30 Apr, 2012 [facility] [place] [facility] [address] [id number] [place] [address] Apr, 2012 [facility] [place] [facility] [address] [id number] [place] [address] Apr, 2012 [facility] [place] [facility] [address] [id number] [place] [address] Apr, 2012 [facility] [place] [facility] [address] [id number] [place] [address] Apr, 2012 [facility] [place] [facility] [address] [id number] [place] [address] Apr, 2012 [facility] [place] [facility] [address] [id number] [place] [address] 15 Apr, 2013 [facility] [place] [facility] [address] [id number] [place] [address] Apr, 2012 [facility] [place] [facility] [address] [id number] [place] [address] 26 Sep, 2012 [facility] [place] [facility] [address] [id number] [place] [address] 24 Sep, 2012 [facility] [place] [facility] [address] [id number] [place] [address] 17 Sep, 2012 [facility] [place] [facility] [address] [id number] [place] [address] 17 Sep, 2012 [facility] [place] [facility] [address] [id number] [place] [address] 11 Sep, 2012 [facility] [place] [facility] [address] [id number] [place] [address] 10 Sep, 2012 [facility] [place] [facility] [address] [id number] [place] [address] 05 Sep, 2012 [facility] [place] [facility] [address] [id number] [place] [address] 04 Sep, 2012 [facility] [place] [facility] [address] [id number] [facility] [place] [address] Jan, [facility] [place] [facility] [address] [id number] [place] [address] Jan, [facility] [place] [facility] [address] [facility] [id number] [facility] [place] [address] 14 Jan, 2013 [facility] [place] [facility] [address] [id number] [facility] [place] [address] Jan, [facility] [place] [facility] [address] [facility] [id number] [place] [address] Jan, [facility] [place] [facility] [address] [facility] [id number] [place] [address] Jan, [facility] [place] [facility] [address] [facility] [id number] [place] [address] 31 Dec, 2012 [facility] [place] [facility] [address] [id number] [facility] [place] [address] 24 Dec, 2012 [facility] [place] [facility] [address] [id number] [facility] [place] [address] Dec, [facility] [place] [facility] [address] [facility] [id number] [facility] [place] [address] Dec, [facility] [place] [facility] [address] [id number] [facility] [place] [address] 18 Dec, 2012 [facility] [place] [facility] [address] [id number] [facility] [place] [address] 17 Dec, 2012 [facility] [place] [facility] [address] [id number] [facility] [place] [address] 16 Dec, 2012 [facility] [place] [facility] [address] [facility] [id number] [place] [address] 16 Dec, 2012 [facility] [place] [facility] [address] [id number] [facility] [place] [address] 15 Dec, 2012 [facility] [place] [facility] [address] [facility] [id number] [facility] [place] [address] 10 Dec, 2012 [facility] [place] [facility] [address] [id number] [facility] [place] [address] Dec, [facility] [place] [facility] [address] [id number] [place] [address] Dec, [facility] [place] [facility] [address] [id number] [place] [address] Dec, [facility] [place] [facility] [address] [id number] [place] [address] Dec, [facility] [place] [facility] [address] [id number] [place] [address] Dec, [facility] [place] [facility] [address] [id number] [place] [address] Dec, [facility] [place] [facility] [address] [id number] [place] [address] October, [facility] [place] [facility] [address] [id number] [place] [address] October, [facility] [place] [facility] [address] [id number] [place] [address] October, [facility] [place] [facility] [address] [id number] [place] [address] October, [facility] [place] [facility] [address] [id number] [place] [address] October, [facility] [place] [facility] [address] [id number] [place] [address] October, [facility] [place] [facility] [address] [id number] [place] [address] October, [facility] [place] [facility] [address] [id number] [place] [address] Oct, [facility] [place] [facility] [address] [id number] [place] [address] Oct, [facility] [place] [facility] [address] [id number] [place] [address] 24 Oct, 2012 [facility] [place] [facility] [address] [id number] [place] [address] Oct, [facility] [place] [facility] [address] [id number] [place] [address] Oct, [facility] [address] [id number] [place] [address] 18 Oct, 2012 [facility] [place] [facility] [address] [id number] [place] [address] 17 Oct, 2012 [facility] [place] [facility] [address] [id number] [place] [address] 15 Oct, 2012 [facility] [place] [facility] [address] [id number] [place] [address] 12 Oct, 2012 [facility] [place] [facility] [address] [facility] [id number] [place] [address] Oct, [facility] [place] [facility] [address] [id number] [place] [address] Oct, [facility] [place] [facility] [address] [id number] [place] [address] Oct, [facility] [place] [facility] [address] [id number] [place] [address] Aug, [facility] [place] [facility] [address] [id number] [place] [address] Aug, [facility] [place] [facility] [address] [id number] [place] [address] Aug, [facility] [place] [facility] [address] [id number] [place] [address] 06 Aug, 2012 [facility] [place] [facility] [address] [id number] [place] [address] 05 Aug, 2012 [facility] [place] [facility] [address] [id number] [place] [address] 05 Aug, 2012 [facility] [place] [facility] [address] [id number] [place] [address] 20 Aug, 2012 [facility] [place] [facility] [address] [id number] [place] [address] 14 Aug, 2012 [facility] [place] [facility] [address] [id number] [place] [address] 12 Aug, 2012 [facility] [place] [facility] [address] [id number] [place] [address] 11 Aug, 2012 [facility] [place] [facility] [address] [id number] [place] [address] Jul, [facility] [place] [facility] [address] [id number] [place] [address] 15 Jul, 2012 [facility] [place] [facility] [address] [id number] [place] [address] 08 Jul, 2012 [facility] [place] [facility] [address] [id number] [place] [address] 20 Jun, 2012 [facility] [place] [facility] [address] [id number] [place] [address] 18 Jun, 2012 [facility] [place] [facility] [address] [id number] [place] [address] 18 Jun, 2012 [facility] [place] [facility] [address] [id number] [place] [address] 18 Jun, 2012 [facility] [place] [facility] [address] [id number] [place] [address] 18 Jun, 2012 [facility] [place] [facility] [address] [id number] [place] [address] 14 Jun, 2012 [facility] [place] [facility] [address] [id number] [place] [address] 14 Jun, 2012 [facility] [place] [facility] [address] [id number] [place] [address] 13 Jun, 2012 [facility] [place] [facility] [address] [id number] [place] [address] 13 Jun, 2012 [facility] [place] [facility] [address] [id number] [place] [address] 11 Jun, 2012 [facility] [place] [facility] [address] [id number] [place] [address] 11 Jun, 2012 [facility] [place] [facility] [address] [id number] [place] [address] 11 Jun, 2012 [facility] [place] [facility] [address] [id number] [place] [address] 11 Jun, 2012 [facility] [place] [facility] [address] [id number] [place] [address] Jun, [facility] [place] [facility] [address] [id number] [place] [address] Jun, [facility] [place] [facility] [address] [id number] [place] [address] Jun, [facility] [place] [facility] [address] [id number] [place] [address] Jun, [facility] [place] [facility] [address] [id number] [place] [address] Jun, [facility] [place] [facility] [address] [id number] [place] [address] Jun, [facility] [place] [facility] [address] [id number] [place] [address] Jun, [facility] [place] [facility] [address] [id number] [place] [address] Jun, [facility] [place] [facility] [address] [id number] [place] [address] Jun, [facility] [place] [facility] [address] [id number] [place] [address] Jun, [facility] [place] [facility] [address] [id number] [place] [address] May, [facility] [place] [facility] [address] [id number] [place] [address] May, [facility] [place] [facility] [address] [id number] [place] [address] May, [facility] [place] [facility] [address] [id number] [place] [address] May, [facility] [place] [facility] [address] [id number] [place] [address] May, [facility] [place] [facility] [address] [id number] [place] [address] May, [facility] [place] [facility] [address] [id number] [place] [address] May, [facility] [place] [facility] [address] [id number] [place] [address] May, 2011 [facility] [place] [facility] [address] [id number] [place] [address] Apr, [facility] [place] [facility] [address] [id number] [place] [address] Apr, [facility] [place] [facility] [address] [id number] [place] [address] Apr, [facility] [place] [facility] [address] [id number] [place] [address] Apr, [facility] [place] [facility] [address] [id number] [place] [address] Apr, [facility] [place] [facility] [address] [id number] [place] [address] Apr, [facility] [place] [facility] [address] [id number] [place] [address] Apr, [facility] [place] [facility] [address] [id number] [place] [address] Apr, [facility] [place] [facility] [address] [id number] [place] [address] Apr, [facility] [place] [facility] [address] [id number] [place] [address] 08 Apr, 2012 [facility] [place] [facility] [address] [id number] [place] [address] 04 Apr, 2012 [facility] [place] [facility] [address] [id number] [place] [address] 02 Apr, 2012 [facility] [place] [facility] [address] [id number] [place] [address] 19 Sep, 2011 [facility] [place] [facility] [address] [id number] [place] [address] 18 Sep, 2011 [facility] [place] [facility] [address] [id number] [place] [address] 12 Mar, 2011 [facility] [place] [facility] [address] [id number] [place] [address] Mar, [facility] [place] [facility] [address] [id number] [place] [id number] Mar, [facility] [place] [facility] [address] [id number] [place] [id number] Mar, [facility] [place] [facility] [address] [id number] [place] [address] Mar, [facility] [place] [facility] [address] [id number] [place] [address] Jan, [facility] [place] [facility] [address] [id number] [place] [address] Jan, [facility] [place] [facility] [address] [id number] [place] [id number] Jan, [facility] [place] [facility] [address] [id number] [place] [id number] Jan, [facility] [place] [facility] [address] [id number] [place] [address] Jan, [facility] [place] [facility] [address] [id number] [place] [address] Jan, [facility] [place] [facility] [address] [id number] [place] [address] Jan, [facility] [place] [facility] [address] [id number] [place] [address] Jan, [facility] [place] [facility] [address] [id number] [place] [address] Jan, [facility] [place] [facility] [address] [id number] [place] [address] Jan, [facility] [place] [facility] [address] [id number] [place] [address] Jan, [facility] [place] [facility] [address] [id number] [place] [address] Dec, [facility] [place] [facility] [address] [id number] [place] [address] Dec, [facility] [place] [facility] [address] [id number] [place] [address] 26 Dec, 2011 [facility] [place] [facility] [address] [id number] [place] [address] 26 Jan, 2012 [facility] [place] [facility] [address] [id number] [place] [address] 20 Jan, 2012 [facility] [place] [facility] [address] [id number] [place] [address] 19 Jan, 2012 [facility] [place] [facility] [address] [id number] [place] [address] 18 Dec, 2011 [facility] [place] [facility] [address] [facility] [id number] [place] [address] 17 Jan, 2012 [facility] [place] [facility] [address] [id number] [place] [address] 16 Jan, 2012 [facility] [place] [facility] [address] [id number] [place] [address] 13 Jan, 2012 [facility] [place] [facility] [address] [id number] [place] [address] 13 Jan, 2012 [facility] [place] [facility] [address] [id number] [place] [address] Dec, [facility] [place] [facility] [address] [id number] [place] [address] Dec, [facility] [place] [facility] [address] [id number] [place] [address] 27 Dec, 2011 [facility] [place] [facility] [address] [id number] [place] [address] 25 Dec, 2011 [facility] [place] [facility] [address] [id number] [place] [address] 18 Dec, 2011 [facility] [place] [facility] [address] [id number] [place] [address] 15 Dec, 2011 [facility] [place] [facility] [address] [id number] [place] [address] 06 Dec, 2011 [facility] [address] [id number] [place] [address] Dec, [facility] [address] [id number] [place] [address] October, [facility] [address] [id number] [place] [address] October, [facility] [address] [id number] [place] [address] October, [facility] [address] [id number] [place] [address] October, [facility] [address] [id number] [place] [address] October, [facility] [address] [id number] [place] [address] October, [facility] [address] [id number] [place] [address] Oct, [facility] [address] [id number] [place] [address] Oct, [facility] [address] [id number] [place] [address] Oct, [facility] [address] [id number] [place] [address] Oct, [facility] [address] [id number] [place] [address] Oct, [facility] [address] [id number] [place] [address] Oct, [facility] [address] [id number] [place] [address] Oct, [facility] [address] [id number] [place] [address] Aug, [facility] [address] [id number] [place] [address] Aug, [facility] [address] [id number] [place] [address] Aug, [facility] [address] [id number] [place] [address] 13 Sep, 2011 [facility] [address] [id number] [facility] [place] [address] Aug, [facility] [address] [id number] [facility] [place] [address] 05 Sep, 2011 [facility] [address] [id number] [facility] [place] [address] 27 Aug, 2011 [facility] [address] [id number] [facility] [place] [address] Aug, [facility] [address] [id number] [facility] [place] [address] 08 Aug, 2011 [facility] [address] [id number] [place] [address] Jul, [facility] [address] [id number] [place] [address] Jul, [facility] [address] [id number] [place] [address] Jul, [facility] [address] [id number] [place] [address] Jul, [facility] [address] [id number] [place] [address] Jun, [facility] [address] [id number] [place] [address] Jun, [facility] [address] [id number] [place] [address] May, [facility] [address] [id number] [place] [address] May, [facility] [address] [id number] [place] [address] May, [facility] [address] [id number] [place] [address] May, [facility] [address] [id number] [place] [address] May, [facility] [address] [id number] [place] [address] Apr, [facility] [address] [facility] [id number] [place] [address] Apr, [facility] [address] [id number] [place] [address] Apr, [facility] [address] [id number] [place] [address] Jan, [facility] [id number] [place] [address] Dec, [facility] [id number] [place] [address] October, [facility] [id number] [place] [address] Jun, [facility] [id number] [place] [address] Apr, [facility] [id number] [place] [address] Apr, [facility] [id number] [place] [address] Apr, [facility] [address] [id number] [place] [address] Jun, IMMUNIZATIONS No Known Immunizations SOCIAL HISTORY Never Assessed REASON FOR VISIT PLAN OF CARE VITAL SIGNS Weight 174.25 lbs 2013-08-16 Temperature 99.4 degrees Fahrenheit 2013-08-16 Heart Rate 100 bpm 2013-08-16 Respiratory Rate 2013-08-16 Blood pressure systolic 148 mmHg 2013-08-16 Blood pressure diastolic 102 mmHg 2013-08-16 MEDICATIONS Unknown Medications RESULTS No Results PROCEDURES [...]
--- OUTSIDE RECORDS SUMMARY | 2020-01-25 12:25 | XMS REPORT ---
Author Author Quang Mayereen Doctor Organization [facility] Address Unknown Phone Unavailable Care Team Providers Care Tub Tender Name Role Phone Migration, Doctor Unavailable Unavailable PROBLEMS Type Condition ICD9-CM Code AOR00-DO Code Onset Dates Condition S tatus SNOMED Code Problem Chronic hepatitis C without hepatic coma B18.2 Active 915316249 Problem Cannabis abuse F12.10 Active 22379 009 Problem Bipolar 1 disorder F31.9 Active 3 13174496 Problem Attention deficit hyperactivity disorder (ADHD), combi luciano type F90.2 Active 97649586 Problem Attention deficit R41.840 Active 76 934179 Problem Hot flashes due to menopause N95.1 A ctive 436655739 Problem H/O laminectomy Z98.89 Active 1616 19660 Problem Other chronic pain G89.29 Active 8 6829223 Problem Anxiety disorder, unspecified type F41.9 Active 656855802 Problem Bipolar disorder, in partial remission, most rec ent episode hypomanic F31.71 Active [id number] ALLERGIES No Information ENCOUNTERS Encounter Location Date Diagnosis [place] [address] [address] Aug, [facility] [address] [address] Jul, [place] [address] [address] Jul, [facility] [address] [address] Apr, [place] [address] [address] Mar, Hot flashes due to menopause N95.1 ; Anx iety disorder, unspecified type F41.9 ; Low back pain M54.5 and Encounter for immunization Z23 [place] [address] [address] Dec, Other chronic pain G89.29 and Low back p ain M54.5 [facility] [address] [address] October, [facility] [address] [address] October, [facility] [address] [address] October, [facility] [address] [address] October, Other chronic pain G89.29 and Chronic he patitis C without hepatic coma B18.2 [facility] [address] [address] Aug, Bipolar disorder, in partial remission, most recent episode hypomanic F31.71 ; Attention deficit hyperactivity disorder (ADHD), combined type F90.2 and Anxiety disorder, unspecified type F41.9 [facility] [address] [address] Aug, [facility] [address] [address] Aug, Bipolar disorder, in partial remission, most recent episode hypomanic F31.71 [facility] [address] [address] 14 Aug, 2018 [facility] [address] [address] Aug, Bipolar disorder, in partial remission, most recent episode hypomanic F31.71 [facility] [address] [address] Aug, Bipolar disorder, in partial remission, most recent episode hypomanic F31.71 ; Attention deficit hyperactivity disorder (ADHD), combined type F90.2 and Anxiety disorder, unspecified type F41.9 [facility] [address] [address] Aug, Low back pain M54.5 and Pain in left wri st M25.532 [facility] [address] [address] Aug, [facility] [address] [address] Jun, [facility] [address] [address] Apr, Bipolar disorder, in partial remission, most recent episode hypomanic F31.71 [facility] [address] [address] Apr, [place] [address] [address] Apr, Bipolar disorder, in partial remission, most recent episode hypomanic F31.71 ; Attention deficit hyperactivity disorder (ADHD), combined type F90.2 ; Anxiety disorder, unspecified type F41.9 and Other long term acute care registered nurse (current) 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 Z79.899 [place] [address] [address] Apr, Bipolar disorder, in partial remission, most recent episode hypomanic F31.71 [place] [address] [address] Apr, Bipolar disorder, in partial remission, most recent episode hypomanic F31.71 [place] [address] [address] Mar, [place] [address] [address] Mar, Bipolar disorder, in partial remission, most recent episode hypomanic F31.71 ; Encounter for immunization Z23 and Low back pain M54.5 [facility] [address] [address] 17 Mar, 2018 Bipolar disorder, in partial remission, most recent episode hypomanic F31.71 [facility] [address] [address] Mar, Bipolar disorder, in partial remission, most recent episode hypomanic F31.71 [facility] [address] [id number] [place] [address] Jan, Bipolar disorder, in partial remission, most recent episode hypomanic F31.71 [facility] [address] [id number] [place] [address] Jan, Bipolar disorder, in partial remission, most recent episode hypomanic F31.71 [facility] [address] [id number] [place] [address] Dec, Bipolar disorder, in partial remission, most recent episode hypomanic F31.71 [facility] [address] [id number] [place] [address] Dec, Bipolar disorder, in partial remission, most recent episode hypomanic F31.71 ; Attention deficit hyperactivity disorder (ADHD), combined type F90.2 ; Anxiety disorder, unspecified type F41.9 and Other fpc (current) 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 Z79.899 [facility] [address] [place] [id number] [place] [address] Dec, Bipolar disorder, in partial remission, most recent episode hypomanic F31.71 [facility] [address] [id number] [place] [address] Dec, Bipolar disorder, in partial remission, most recent episode hypomanic F31.71 [facility] [address] [id number] [place] [address] October, Bipolar disorder, in partial remission, most recent episode hypomanic F31.71 [facility] [address] [id number] [place] [address] October, [facility] [address] [id number] [place] [address] October, [facility] [address] [id number] [place] [address] Oct, Bipolar disorder, in partial remission, most recent episode hypomanic F31.71 ; Attention deficit hyperactivity disorder (ADHD), combined type F90.2 ; Anxiety disorder, unspecified type F41.9 and Encounter for drug screening Z02.83 [facility] [address] [place] [id number] [place] [address] Oct, Bipolar disorder, in partial remission, most recent episode hypomanic F31.71 [facility] [address] [place] [id number] [place] [address] Oct, Bipolar disorder, in partial remission, most recent episode hypomanic F31.71 [facility] [address] [address] Aug, Bipolar disorder, in partial remission, most recent episode hypomanic F31.71 [facility] [address] [address] Aug, Bipolar disorder, in partial remission, most recent episode hypomanic F31.71 [facility] [address] [address] Aug, Bipolar disorder, in partial remission, most recent episode hypomanic F31.71 [facility] [address] [place] [id number] [place] [address] Jul, Bipolar disorder, in partial remission, most recent episode hypomanic F31.71 ; Attention deficit hyperactivity disorder (ADHD), combined type F90.2 and Anxiety disorder, unspecified type F41.9 [facility] [address] [place] [id number] [place] [address] Jul, Bipolar disorder, in partial remission, most recent episode hypomanic F31.71 [facility] [address] [place] [id number] [place] [address] Jun, Bipolar disorder, in partial remission, most recent episode hypomanic F31.71 [facility] [address] [place] [id number] [place] [address] May, Bipolar disorder, in partial remission, most recent episode hypomanic F31.71 [facility] [address] [place] [id number] [place] [address] May, Bipolar disorder, in partial remission, most recent episode hypomanic F31.71 [place] [address] [address] Apr, [place] [address] [address] Apr, Bipolar disorder, in partial remission, most recent episode hypomanic F31.71 ; Attention deficit hyperactivity disorder (ADHD), combined type F90.2 ; Anxiety disorder, unspecified type F41.9 and Cannabis abuse F12.10 [place] [address] [address] Apr, Attention deficit hyperactivity disorder (ADHD), combined type F90.2 [place] [address] [address] Mar, Attention deficit hyperactivity disorder (ADHD), combined type F90.2 [place] [address] [address] 14 Mar, 2017 Anxiety disorder, unspecified type F41.9 [place] [address] [address] Jan, Attention deficit hyperactivity disorder (ADHD), combined type F90.[address] [address] Jan, Anxiety disorder, unspecified type F41.[address] [address] Jan, Other chronic pain G89.29 ; Chronic hepa titis C without hepatic coma B18.2 and Bipolar 1 disorder F31.9 [place] [address] [address] Dec, Attention deficit hyperactivity disorder (ADHD), combined type F90.2 [place] [address] [address] Dec, Bipolar disorder, in partial remission, most recent episode hypomanic F31.71 ; Attention deficit hyperactivity disorder (ADHD), combined type F90.2 and Anxiety disorder, unspecified type F41.9 [place] [address] [address] Dec, Bipolar disorder, in partial remission, most recent episode hypomanic F31.71 ; Attention deficit hyperactivity disorder (ADHD), combined type F90.2 and Anxiety disorder, unspecified type F41.9 [place] [address] [address] Dec, Bipolar 1 disorder F31.9 and Attention d eficit R41.840 [place] [address] [address] Oct, Other chronic pain G89.29 ; Alopecia L65 .9 and Screening, lipid Z13.220 [place] [address] [address] Oct, [place] [address] [address] Aug, [place] [address] [address] Aug, Eustachian tube dysfunction, right H69.8 1 ; Vertigo R42 and Other chronic pain G89.29 [place] [address] [address] Aug, [place] [address] [address] Jun, [place] [address] [address] Jun, Low back pain M54.5 and Other chronic pa in G89.29 [place] [address] [address] Jun, [place] [address] [address] May, [place] [address] [address] Jan, [place] [address] [address] Dec, [facility] [address] [address] Dec, [facility] [address] [address] Jun, [facility] [address] [address] Apr, Eustachian tube dysfunction, unspecified laterality H69.80 ; Hot flashes N95.1 and Encounter for immunization Z23 [facility] [address] [address] Jan, [facility] [address] [address] Jan, [facility] [address] [address] Jan, [facility] [address] [address] Jan, [facility] [address] [address] Jan, Encounter to establish care V65.8 ; Bipo lar 1 disorder 296.7 ; Abdominal pain 789.00 ; Constipation 564.00 ; Hard of hearing 389.9 and Drug abuse 305.90 [facility] [address] [address] Dec, [facility] [address] [address] October, [facility] [address] [address] October, [facility] [address] [address] Oct, [facility] [address] [address] Oct, [facility] [address] [address] Oct, [facility] [place] [facility] [address] [id number] [place] [address] Aug, [facility] [place] [facility] [address] [id number] [place] [address] Aug, [facility] [place] [facility] [address] [id number] [place] [address] Aug, [facility] [place] [facility] [address] [id number] [place] [address] Aug, 2014 [facility] [place] [facility] [address] [id number] [place] [address] Aug, 2014 [facility] [place] [facility] [address] [id number] [place] [address] Aug, 2014 [facility] [place] [facility] [address] [id number] [place] [address] Aug, 2014 [facility] [place] [facility] [address] [id number] [place] [address] Aug, 2014 [facility] [place] [facility] [address] [id number] [place] [address] Aug, 2014 [facility] [place] [facility] [address] [id number] [place] [address] Aug, 2014 [facility] [place] [facility] [address] [id number] [place] [address] Aug, 2014 [facility] [place] [facility] [address] [id number] [place] [address] Aug, 2014 [facility] [place] [facility] [address] [id number] [place] [address] Aug, 2014 [facility] [place] [facility] [address] [id number] [place] [address] Aug, 2014 [facility] [place] [facility] [address] [id number] [place] [address] Aug, 2014 [facility] [place] [facility] [address] [id number] [place] [address] Jul, [facility] [place] [facility] [address] [id number] [place] [address] Jul, [facility] [place] [facility] [address] [facility] [place] [id number] [address] Jul, [facility] [place] [facility] [address] [id number] [place] [address] Jul, [facility] [place] [facility] [address] [id number] [place] [address] Jul, [facility] [place] [facility] [address] [id number] [place] [address] Jul, [facility] [place] [facility] [address] [id number] [place] [address] Jul, [facility] [place] [facility] [address] [id number] [place] [address] Jul, [facility] [place] [facility] [address] [id number] [place] [address] Jun, [facility] [place] [facility] [address] [id number] [place] [address] Jun, [facility] [place] [facility] [address] [id number] [place] [address] Jun, [facility] [place] [facility] [address] [id number] [place] [address] Jun, [facility] [place] [facility] [address] [id number] [place] [address] Jun, [facility] [place] [facility] [address] [id number] [place] [address] 15 Jun, 2014 [facility] [place] [facility] [address] [id number] [place] [address] 15 Jun, 2014 [facility] [place] [facility] [address] [id number] [place] [address] Jun, [facility] [place] [facility] [address] [id number] [place] [address] Jun, [facility] [place] [facility] [address] [id number] [place] [address] Jun, [facility] [place] [facility] [address] [id number] [place] [address] Jun, [facility] [place] [facility] [address] [id number] [place] [address] May, [facility] [place] [facility] [address] [id number] [place] [address] May, [facility] [place] [facility] [address] [id number] [place] [address] May, [facility] [place] [facility] [address] [id number] [place] [address] May, [facility] [place] [facility] [address] [id number] [place] [address] May, [facility] [place] [facility] [address] [id number] [place] [address] May, [facility] [place] [facility] [address] [place] [id number] [place] [address] May, [facility] [place] [facility] [address] [id number] [place] [address] Apr, [facility] [place] [facility] [address] [id number] [place] [address] Apr, [facility] [place] [facility] [address] [id number] [place] [address] Apr, [facility] [place] [facility] [address] [id number] [place] [address] Apr, [facility] [place] [facility] [address] [id number] [place] [address] Apr, [facility] [place] [facility] [address] [id number] [place] [address] Apr, [facility] [place] [facility] [address] [place] [id number] [place] [address] Mar, [facility] [place] [facility] [address] [id number] [place] [address] 29 Mar, 2014 [facility] [place] [facility] [address] [id number] [place] [address] Mar, [facility] [place] [facility] [address] [facility] [place] [id number] [place] [address] Mar, [facility] [place] [facility] [address] [facility] [place] [id number] [place] [address] Mar, [facility] [place] [facility] [address] [id number] [place] [address] Mar, [facility] [place] [facility] [address] [facility] [place] [id number] [place] [address] Jan, [facility] [place] [facility] [address] [facility] [place] [id number] [place] [address] Jan, [facility] [place] [facility] [address] [id number] [place] [address] Jan, [facility] [place] [facility] [address] [id number] [place] [address] Jan, [facility] [place] [facility] [address] [id number] [place] [address] Dec, [facility] [place] [facility] [address] [facility] [place] [id number] [place] [address] Dec, [facility] [place] [facility] [address] [id number] [place] [address] Dec, [facility] [place] [facility] [address] [id number] [place] [address] Dec, [facility] [place] [facility] [address] [id number] [place] [address] Dec, [facility] [place] [facility] [address] [facility] [place] [id number] [place] [address] Dec, [facility] [place] [facility] [address] [facility] [place] [id number] [place] [address] Dec, [facility] [place] [facility] [address] [facility] [place] [id number] [place] [address] Dec, [facility] [place] [facility] [address] [id number] [place] [address] Dec, [facility] [place] [facility] [address] [facility] [place] [id number] [place] [address] Dec, [facility] [place] [facility] [address] [id number] [place] [address] Dec, [facility] [place] [facility] [address] [id number] [place] [address] Dec, [facility] [place] [facility] [address] [id number] [place] [address] October, [facility] [place] [facility] [address] [id number] [place] [address] October, [facility] [place] [facility] [address] [id number] [place] [address] October, [facility] [place] [facility] [address] [id number] [place] [address] October, [facility] [place] [facility] [address] [id number] [place] [address] October, [facility] [place] [facility] [address] [id number] [place] [address] October, [facility] [place] [facility] [address] [id number] [place] [address] Oct, [facility] [place] [facility] [address] [id number] [place] [address] Oct, [facility] [place] [facility] [address] [id number] [place] [address] Oct, [facility] [place] [facility] [address] [id number] [place] [address] Oct, [facility] [place] [facility] [address] [id number] [place] [address] Oct, [facility] [address] [id number] [place] [address] Oct, [facility] [address] [id number] [place] [address] Oct, [facility] [address] [id number] [place] [address] Oct, [facility] [address] [id number] [place] [address] Oct, [facility] [address] [id number] [place] [address] Oct, [facility] [address] [id number] [place] [address] Oct, [facility] [address] [id number] [place] [address] Oct, [facility] [address] [id number] [place] [address] Aug, [facility] [address] [id number] [place] [address] Aug, [facility] [address] [id number] [place] [address] Aug, [facility] [address] [id number] [place] [address] Aug, [facility] [address] [id number] [place] [address] Aug, [facility] [address] [id number] [place] [address] Aug, [facility] [address] [id number] [place] [address] Aug, [facility] [address] [id number] [place] [address] Aug, [facility] [address] [id number] [place] [address] Aug, [facility] [address] [id number] [place] [address] Aug, [facility] [address] [id number] [place] [address] Aug, [facility] [address] [id number] [place] [address] Aug, [facility] [address] [id number] [place] [address] Aug, [facility] [address] [id number] [place] [address] Aug, [facility] [address] [id number] [place] [address] Aug, [facility] [address] [id number] [place] [address] Aug, [facility] [address] [id number] [place] [address] Aug, [facility] [address] [id number] [place] [address] Aug, [facility] [address] [id number] [place] [address] Aug, [facility] [address] [id number] [place] [address] Aug, [facility] [address] [id number] [place] [address] Aug, [facility] [place] [facility] [address] [id number] [place] [address] Aug, [facility] [place] [facility] [address] [id number] [place] [address] Aug, [facility] [place] [facility] [address] [id number] [place] [address] Aug, [facility] [place] [facility] [address] [id number] [place] [address] Aug, [facility] [place] [facility] [address] [id number] [place] [address] Jul, [facility] [place] [facility] [address] [id number] [place] [address] Jul, [facility] [place] [facility] [address] [id number] [place] [address] Jul, [facility] [place] [facility] [address] [id number] [place] [address] Jul, [facility] [place] [facility] [address] [id number] [place] [address] Jul, [facility] [place] [facility] [address] [id number] [place] [address] Jul, [facility] [place] [facility] [address] [id number] [place] [address] Jul, [facility] [place] [facility] [address] [id number] [place] [address] Jul, [facility] [place] [facility] [address] [facility] [place] [id number] [place] [address] Jul, [facility] [place] [facility] [address] [id number] [place] [address] Jul, [facility] [place] [facility] [address] [id number] [place] [address] Jul, [facility] [place] [facility] [address] [id number] [place] [address] Jul, [facility] [place] [facility] [address] [id number] [place] [address] Jul, [facility] [place] [facility] [address] [id number] [place] [address] Jul, [facility] [place] [facility] [address] [id number] [place] [address] Jul, [facility] [place] [facility] [address] [id number] [place] [address] Jul, [facility] [place] [facility] [address] [id number] [place] [address] Jul, [facility] [place] [facility] [address] [id number] [place] [address] Jul, [facility] [place] [facility] [address] [id number] [place] [address] Jul, [facility] [place] [facility] [address] [id number] [place] [address] Jul, [facility] [place] [facility] [address] [id number] [place] [address] 31 Jun, 2013 [facility] [place] [facility] [address] [facility] [place] [id number] [place] [address] Jun, [facility] [place] [facility] [address] [id number] [place] [address] Jun, [facility] [place] [facility] [address] [id number] [place] [address] Jun, [facility] [place] [facility] [address] [id number] [place] [address] Jun, [facility] [place] [facility] [address] [id number] [place] [address] Jun, [facility] [place] [facility] [address] [id number] [place] [address] Jun, [facility] [place] [facility] [address] [id number] [place] [address] Jun, [facility] [place] [facility] [address] [id number] [place] [address] Jun, [facility] [place] [facility] [address] [id number] [place] [address] Jun, [facility] [place] [facility] [address] [id number] [place] [address] Jun, [facility] [place] [facility] [address] [id number] [place] [address] Jun, [facility] [place] [facility] [address] [id number] [place] [address] Jun, [facility] [place] [facility] [address] [id number] [place] [address] Jun, [facility] [place] [facility] [address] [id number] [place] [address] Jun, [facility] [place] [facility] [address] [id number] [place] [address] Jun, [facility] [place] [facility] [address] [id number] [place] [address] Jun, [facility] [place] [facility] [address] [id number] [place] [address] 17 Jun, 2013 [facility] [place] [facility] [address] [id number] [place] [address] 17 Jun, 2013 [facility] [place] [facility] [address] [id number] [place] [address] Jun, [facility] [place] [facility] [address] [id number] [place] [address] Jun, [facility] [place] [facility] [address] [id number] [place] [address] Jun, [facility] [place] [facility] [address] [id number] [place] [address] Jun, [facility] [place] [facility] [address] [id number] [place] [address] Jun, [facility] [place] [facility] [address] [id number] [place] [address] Jun, [facility] [place] [facility] [address] [id number] [place] [address] Jun, [facility] [place] [facility] [address] [id number] [place] [address] Jun, [facility] [place] [facility] [address] [id number] [place] [address] May, [facility] [place] [facility] [address] [id number] [place] [address] May, [facility] [place] [facility] [address] [id number] [place] [address] May, [facility] [place] [facility] [address] [id number] [place] [address] May, [facility] [place] [facility] [id number] [place] [address] May, [facility] [place] [facility] [address] [id number] [place] [address] May, [facility] [place] [facility] [address] [id number] [place] [address] Apr, [facility] [place] [facility] [address] [id number] [place] [address] 30 Apr, 2012 [facility] [place] [facility] [address] [id number] [place] [address] 30 Apr, 2012 [facility] [place] [facility] [address] [id number] [place] [address] 30 Apr, 2012 [facility] [place] [facility] [address] [id number] [place] [address] Apr, 2012 [facility] [place] [facility] [address] [facility] [place] [id number] [place] [address] 15 Apr, 2012 [facility] [place] [facility] [address] [id number] [place] [address] 15 Apr, 2012 [facility] [place] [facility] [address] [id number] [place] [address] Apr, [facility] [place] [facility] [address] [id number] [place] [address] 26 Mar, 2012 [facility] [place] [facility] [address] [id number] [place] [address] 24 Sep, 2012 [facility] [place] [facility] [address] [id number] [place] [address] 17 Sep, 2012 [facility] [place] [facility] [address] [id number] [place] [address] 17 Sep, 2012 [facility] [place] [facility] [address] [id number] [place] [address] 11 Sep, 2012 [facility] [place] [facility] [address] [id number] [place] [address] 10 Sep, 2012 [facility] [place] [facility] [address] [id number] [place] [address] 05 Sep, 2012 [facility] [place] [facility] [address] [id number] [place] [address] 04 Sep, 2012 [facility] [place] [facility] [address] [id number] [place] [address] 20 Jan, 2012 [facility] [place] [facility] [address] [id number] [place] [address] Jan, [facility] [place] [facility] [address] [id number] [place] [address] Jan, [facility] [place] [facility] [address] [facility] [place] [id number] [place] [address] Jan, [facility] [place] [facility] [address] [id number] [place] [address] Jan, [facility] [place] [facility] [address] [facility] [place] [id number] [place] [address] 05 Jan, 2013 [facility] [place] [facility] [address] [facility] [place] [id number] [place] [address] Dec, [facility] [place] [facility] [address] [facility] [place] [id number] [place] [address] 24 Dec, 2012 [facility] [place] [facility] [address] [id number] [place] [address] Dec, [facility] [place] [facility] [address] [id number] [place] [address] Dec, [facility] [place] [facility] [address] [facility] [place] [id number] [place] [address] Dec, [facility] [place] [facility] [address] [id number] [place] [address] 17 Dec, 2012 [facility] [place] [facility] [address] [id number] [place] [address] 16 Dec, 2012 [facility] [place] [facility] [address] [id number] [place] [address] 16 Dec, 2012 [facility] [place] [facility] [address] [facility] [place] [id number] [place] [address] 15 Dec, 2012 [facility] [place] [facility] [address] [id number] [place] [address] Dec, [facility] [place] [facility] [address] [facility] [place] [id number] [place] [address] Dec, [facility] [place] [facility] [address] [id number] [place] [address] Dec, [facility] [place] [facility] [address] [id number] [place] [address] Dec, [facility] [place] [facility] [address] [id number] [place] [address] Dec, [facility] [place] [facility] [address] [id number] [place] [address] Dec, [facility] [place] [facility] [address] [id number] [place] [address] Dec, [facility] [place] [facility] [address] [id number] [place] [address] October, [facility] [place] [facility] [address] [id number] [place] [address] October, [facility] [place] [facility] [address] [id number] [place] [address] October, [facility] [place] [facility] [address] [id number] [place] [address] October, [facility] [place] [facility] [address] [id number] [place] [address] October, [facility] [place] [facility] [address] [id number] [place] [address] October, [facility] [place] [facility] [address] [id number] [place] [address] October, [facility] [place] [facility] [address] [id number] [place] [address] Oct, [facility] [place] [facility] [address] [id number] [place] [address] Oct, [facility] [place] [facility] [address] [id number] [place] [address] Oct, [facility] [place] [facility] [address] [id number] [place] [address] Oct, [facility] [place] [facility] [address] [id number] [place] [address] Oct, [facility] [place] [facility] [address] [id number] [place] [address] Oct, [facility] [address] [facility] [place] [id number] [place] [address] 17 Oct, 2012 [facility] [place] [facility] [address] [id number] [place] [address] 15 Oct, 2012 [facility] [place] [facility] [address] [id number] [place] [address] 12 Oct, 2012 [facility] [place] [facility] [address] [id number] [place] [address] Oct, [facility] [place] [facility] [address] [facility] [place] [id number] [place] [address] Oct, [facility] [place] [facility] [address] [id number] [place] [address] Oct, [facility] [place] [facility] [address] [id number] [place] [address] Aug, [facility] [place] [facility] [address] [id number] [place] [address] Aug, [facility] [place] [facility] [address] [id number] [place] [address] Aug, [facility] [place] [facility] [address] [id number] [place] [address] 06 Aug, 2012 [facility] [place] [facility] [address] [id number] [place] [address] 05 Aug, 2012 [facility] [place] [facility] [address] [id number] [place] [address] 05 Aug, 2012 [facility] [place] [facility] [address] [id number] [place] [address] 20 Aug, 2012 [facility] [place] [facility] [address] [id number] [place] [address] 14 Aug, 2012 [facility] [place] [facility] [address] [id number] [place] [address] 12 Aug, 2012 [facility] [place] [facility] [address] [id number] [place] [address] Aug, [facility] [place] [facility] [address] [id number] [place] [address] 29 Jul, 2012 [facility] [place] [facility] [address] [id number] [place] [address] 15 Jul, 2012 [facility] [place] [facility] [address] [id number] [place] [address] 08 Jul, 2012 [facility] [place] [facility] [address] [id number] [place] [address] 20 Jun, 2012 [facility] [place] [facility] [address] [id number] [place] [address] 18 Jun, 2012 [facility] [place] [facility] [address] [id number] [place] [address] 18 Jun, 2012 [facility] [place] [facility] [address] [id number] [place] [address] 18 Jun, 2012 [facility] [place] [facility] [address] [id number] [place] [address] 18 Jun, 2012 [facility] [place] [facility] [address] [id number] [place] [address] 14 Jun, 2012 [facility] [place] [facility] [address] [id number] [place] [address] 14 Jun, 2012 [facility] [place] [facility] [address] [id number] [place] [address] 13 Jun, 2012 [facility] [place] [facility] [address] [id number] [place] [address] 13 Jun, 2012 [facility] [place] [facility] [address] [id number] [place] [address] 11 Jun, 2012 [facility] [place] [facility] [address] [id number] [place] [address] 11 Jun, 2012 [facility] [place] [facility] [address] [id number] [place] [address] 11 Jun, 2012 [facility] [place] [facility] [address] [id number] [place] [address] 11 Jun, 2012 [facility] [place] [facility] [address] [id number] [place] [address] 07 Jun, 2012 [facility] [place] [facility] [address] [id number] [place] [address] Jun, [facility] [place] [facility] [address] [id number] [place] [address] Jun, [facility] [place] [facility] [address] [id number] [place] [address] Jun, [facility] [place] [facility] [address] [id number] [place] [address] Jun, [facility] [place] [facility] [address] [id number] [place] [address] Jun, [facility] [place] [facility] [address] [id number] [place] [address] Jun, [facility] [place] [facility] [address] [id number] [place] [address] Jun, [facility] [place] [facility] [address] [id number] [place] [address] Jun, [facility] [place] [facility] [address] [id number] [place] [address] Jun, [facility] [place] [facility] [address] [id number] [place] [address] May, [facility] [place] [facility] [address] [id number] [place] [address] May, [facility] [place] [facility] [address] [id number] [place] [address] May, [facility] [place] [facility] [address] [id number] [place] [address] May, [facility] [place] [facility] [address] [id number] [place] [address] May, [facility] [place] [facility] [address] [id number] [place] [address] May, [facility] [place] [facility] [address] [id number] [place] [address] May, [facility] [place] [facility] [address] [id number] [place] [address] May, [facility] [address] [facility] [place] [id number] [address] Apr, 2011 [facility] [address] [id number] [place] [address] Apr, [facility] [address] [id number] [place] [address] Apr, 2011 [facility] [address] [id number] [place] [address] Apr, [facility] [address] [facility] [place] [id number] [place] [address] Apr, [facility] [address] [id number] [place] [address] Apr, [facility] [address] [id number] [place] [address] Apr, [facility] [address] [id number] [place] [address] Apr, [facility] [address] [id number] [place] [address] 09 Apr, 2012 [facility] [address] [id number] [place] [address] 08 Apr, 2012 [facility] [address] [id number] [place] [address] 04 Apr, 2012 [facility] [address] [id number] [place] [address] 02 Apr, 2012 [facility] [address] [id number] [place] [address] 19 Mar, 2011 [facility] [address] [facility] [place] [id number] [place] [address] 18 Sep, 2011 [facility] [address] [id number] [place] [address] 12 Sep, 2011 [facility] [address] [id number] [place] [address] 12 Mar, 2011 [facility] [address] [facility] [id number] [place] [id number] Mar, [facility] [address] [id number] [place] [id number] Mar, [facility] [address] [id number] [place] [address] Mar, [facility] [address] [id number] [place] [address] Jan, [facility] [address] [id number] [place] [address] Jan, [facility] [address] [id number] [place] [id number] Jan, [facility] [address] [id number] [place] [id number] , [place] [id number] Jan, [facility] [address] [id number] [place] [address] Jan, [facility] [address] [id number] [place] [address] Jan, [facility] [address] [id number] [place] [address] Jan, [facility] [address] [id number] [place] [address] Jan, [facility] [address] [id number] [place] [address] Jan, [facility] [address] [id number] [place] [address] Jan, [facility] [address] [id number] [place] [address] Jan, [facility] [address] [id number] [place] [address] Dec, [facility] [address] [id number] [place] [address] Dec, [facility] [address] [id number] [place] [address] Dec, [facility] [address] [id number] [place] [address] 26 Jan, 2012 [facility] [address] [id number] [place] [address] 20 Jan, 2012 [facility] [address] [id number] [place] [address] 19 Jan, 2012 [facility] [address] [id number] [place] [address] 18 Jan, 2012 [facility] [address] [id number] [place] [address] 17 Jan, 2012 [facility] [address] [facility] [place] [id number] [place] [address] 16 Jan, 2012 [facility] [address] [id number] [place] [address] 13 Jan, 2012 [facility] [address] [id number] [place] [address] Dec, [facility] [address] [id number] [place] [address] Dec, [facility] [address] [id number] [place] [address] Dec, [facility] [address] [id number] [place] [address] Dec, [facility] [address] [id number] [place] [address] Dec, [facility] [address] [id number] [place] [address] Dec, [facility] [address] [id number] [place] [address] 15 Dec, 2011 [facility] [address] [id number] [place] [address] 06 Dec, 2011 [facility] [address] [id number] [place] [address] 05 Dec, 2011 [facility] [address] [id number] [place] [address] October, [facility] [address] [id number] [place] [address] October, [facility] [address] [id number] [place] [address] October, [facility] [address] [id number] [place] [address] October, [facility] [address] [id number] [place] [address] October, [facility] [address] [id number] [place] [address] October, [facility] [address] [id number] [place] [address] Oct, [facility] [address] [id number] [place] [address] Oct, [facility] [address] [id number] [place] [address] Oct, [facility] [address] [id number] [place] [address] Oct, [facility] [address] [id number] [place] [address] Oct, [facility] [address] [id number] [place] [address] Oct, [facility] [address] [id number] [place] [address] Oct, [facility] [address] [id number] [place] [address] Aug, [facility] [address] [id number] [place] [address] Aug, [facility] [address] [id number] [place] [address] Aug, [facility] [address] [id number] [place] [address] Aug, [facility] [address] [id number] [place] [address] Aug, [facility] [address] [id number] [place] [address] Aug, [facility] [address] [id number] [place] [address] Aug, [facility] [address] [id number] [place] [address] Aug, [facility] [address] [id number] [place] [address] Aug, [facility] [address] [id number] [place] [address] Jul, [facility] [address] [id number] [place] [address] Jul, [facility] [address] [id number] [place] [address] Jul, [facility] [id number] [place] [address] Jul, [facility] [address] [id number] [place] [address] Jun, [facility] [id number] [place] [address] Jun, [facility] [address] [id number] [place] [address] May, [facility] [id number] [place] [address] May, [facility] [address] [id number] [place] [address] May, [facility] [id number] [place] [address] May, [facility] [address] [id number] [place] [address] May, [facility] [address] [id number] [place] [address] Apr, [facility] [address] [id number] [place] [address] 28 Apr, 2011 [facility] [address] [id number] [place] [address] Apr, [facility] [address] [id number] [place] [address] Jan, [facility] [address] [id number] [place] [address] Dec, [facility] [id number] [place] [address] October, [facility] [id number] [place] [address] Jun, [facility] [id number] [place] [address] Apr, [facility] [address] [id number] [place] [address] Apr, [facility] [address] [id number] [place] [address] Apr, [facility] [address] [id number] [place] [address] Jun, IMMUNIZATIONS No Known Immunizations SOCIAL HISTORY [...]
--- OUTSIDE RECORDS SUMMARY | 2020-01-25 12:26 | XMS REPORT ---
Author Author Ana Iraheta Organization [facility] [place] Address [address] [place] [address] Care Team Providers Care Cfo Controller Name Role Phone MELISA Iraheta Unavailable PROBLEMS Type Condition ICD9-CM Code [id number] Code Onset Dates Condition S tatus SNOMED Code Problem Chronic hepatitis C without hepatic coma B18.2 Active 375166785 Problem Cannabis abuse F12.10 Active 48320 009 Problem Bipolar 1 disorder F31.9 Active 3 67314862 Problem Attention deficit hyperactivity disorder (ADHD), combi luciano type F90.2 Active 54650719 Problem Attention deficit R41.840 Active 76 816551 Problem Hot flashes due to menopause N95.1 A ctive 537166824 Problem H/O laminectomy Z98.89 Active 1616 71050 Problem Other chronic pain G89.29 Active 8 1741302 Problem Anxiety disorder, unspecified type F41.9 Active 328696614 Problem Bipolar disorder, in partial remission, most rec ent episode hypomanic F31.71 Active [id number] ALLERGIES No Information ENCOUNTERS Encounter Location Date Diagnosis [place] [id number] [place] [address] Aug, [facility] [place] [address] [address] Jul, [facility] [place] [address] [address] Jul, [place] [address] [address] Apr, [place] [address] [address] Mar, Hot flashes due to menopause N95.1 ; Anx iety disorder, unspecified type F41.9 ; Low back pain M54.5 and Encounter for immunization Z23 [facility] [place] [address] [address] Dec, Other chronic pain G89.29 and Low back p ain M54.5 [facility] [place] [address] [address] October, [facility] [place] [address] [address] October, [facility] [place] [address] [address] October, [facility] [place] [address] [address] October, Other chronic pain G89.29 and Chronic he patitis C without hepatic coma B18.2 [facility] [place] [address] [address] Aug, Bipolar disorder, in partial remission, most recent episode hypomanic F31.71 ; Attention deficit hyperactivity disorder (ADHD), combined type F90.2 and Anxiety disorder, unspecified type F41.9 [facility] [place] [address] [address] Aug, [place] [address] [address] Aug, Bipolar disorder, in partial remission, most recent episode hypomanic F31.71 [facility] [place] [address] [address] Aug, [facility] [place] [address] [address] Aug, Bipolar disorder, in partial remission, most recent episode hypomanic F31.71 [place] [address] [address] Aug, Bipolar disorder, in partial remission, most recent episode hypomanic F31.71 ; Attention deficit hyperactivity disorder (ADHD), combined type F90.2 and Anxiety disorder, unspecified type F41.9 [facility] [place] [id number] [place] [address] Aug, Low back pain M54.5 and Pain in left wri st M25.532 [facility] [place] [address] [id number] [place] [address] Aug, [facility] [place] [address] [id number] [place] [address] Jun, [facility] [place] [id number] [place] [address] Apr, Bipolar disorder, in partial remission, most recent episode hypomanic F31.71 [facility] [place] [id number] [place] [address] Apr, [facility] [place] [id number] [place] [address] Apr, Bipolar disorder, in partial remission, most recent episode hypomanic F31.71 ; Attention deficit hyperactivity disorder (ADHD), combined type F90.2 ; Anxiety disorder, unspecified type F41.9 and Other penitentiary (current) 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 Z79.899 [facility] [place] [id number] [place] [address] Apr, Bipolar disorder, in partial remission, most recent episode hypomanic F31.71 [facility] [place] [address] [id number] [place] [address] Apr, Bipolar disorder, in partial remission, most recent episode hypomanic F31.71 [facility] [place] [id number] [place] [address] Mar, [facility] [place] [id number] [place] [address] Mar, Bipolar disorder, in partial remission, most recent episode hypomanic F31.71 ; Encounter for immunization Z23 and Low back pain M54.5 [facility] [place] [address] [id number] [place] [address] Mar, Bipolar disorder, in partial remission, most recent episode hypomanic F31.71 [facility] [place] [id number] [place] [address] Mar, Bipolar disorder, in partial remission, most recent episode hypomanic F31.71 [facility] [place] [address] [id number] [place] [address] Jan, Bipolar disorder, in partial remission, most recent episode hypomanic F31.71 [facility] [place] [address] [id number] [place] [address] Jan, Bipolar disorder, in partial remission, most recent episode hypomanic F31.71 [facility] [place] [id number] [place] [address] Dec, Bipolar disorder, in partial remission, most recent episode hypomanic F31.71 [facility] [place] [id number] [place] [address] Dec, Bipolar disorder, in partial remission, most recent episode hypomanic F31.71 ; Attention deficit hyperactivity disorder (ADHD), combined type F90.2 ; Anxiety disorder, unspecified type F41.9 and Other penitentiary (current) 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 Z79.899 [facility] [place] [id number] [place] [address] Dec, Bipolar disorder, in partial remission, most recent episode hypomanic F31.71 [facility] [place] [address] [id number] [place] [address] Dec, Bipolar disorder, in partial remission, most recent episode hypomanic F31.71 [facility] [place] [id number] [place] [address] October, Bipolar disorder, in partial remission, most recent episode hypomanic F31.71 [facility] [place] [address] [id number] [place] [address] October, [facility] [place] [address] [id number] [place] [address] October, [facility] [place] [address] [id number] [place] [address] Oct, Bipolar disorder, in partial remission, most recent episode hypomanic F31.71 ; Attention deficit hyperactivity disorder (ADHD), combined type F90.2 ; Anxiety disorder, unspecified type F41.9 and Encounter for drug screening Z02.83 [facility] [place] [id number] [place] [address] Oct, Bipolar disorder, in partial remission, most recent episode hypomanic F31.71 [facility] [place] [id number] [place] [address] Oct, Bipolar disorder, in partial remission, most recent episode hypomanic F31.71 [facility] [place] [id number] [place] [address] Aug, Bipolar disorder, in partial remission, most recent episode hypomanic F31.71 [facility] [place] [id number] [place] [address] Aug, Bipolar disorder, in partial remission, most recent episode hypomanic F31.71 [facility] [place] [id number] [place] [address] Aug, Bipolar disorder, in partial remission, most recent episode hypomanic F31.71 [facility] [place] [id number] [place] [address] Jul, Bipolar disorder, in partial remission, most recent episode hypomanic F31.71 ; Attention deficit hyperactivity disorder (ADHD), combined type F90.2 and Anxiety disorder, unspecified type F41.9 [facility] [place] [id number] [place] [address] Jul, Bipolar disorder, in partial remission, most recent episode hypomanic F31.71 [facility] [place] [id number] [place] [address] Jun, Bipolar disorder, in partial remission, most recent episode hypomanic F31.71 [facility] [place] [id number] [place] [address] May, Bipolar disorder, in partial remission, most recent episode hypomanic F31.71 [facility] [place] [id number] [place] [address] May, Bipolar disorder, in partial remission, most recent episode hypomanic F31.71 [facility] [place] [address] [address] Apr, [facility] [place] [address] [address] Apr, Bipolar disorder, in partial remission, most recent episode hypomanic F31.71 ; Attention deficit hyperactivity disorder (ADHD), combined type F90.2 ; Anxiety disorder, unspecified type F41.9 and Cannabis abuse F12.10 [facility] [place] [address] [address] Apr, Attention deficit hyperactivity disorder (ADHD), combined type F90.2 [place] [address] [address] Mar, Attention deficit hyperactivity disorder (ADHD), combined type F90.2 [place] [address] [address] Mar, Anxiety disorder, unspecified type F41.9 [facility] [place] [address] [address] Jan, Attention deficit hyperactivity disorder (ADHD), combined type F90.2 [facility] [place] [address] [address] Jan, Anxiety disorder, unspecified type F41.9 [place] [address] [address] Jan, Other chronic pain G89.29 ; Chronic hepa titis C without hepatic coma B18.2 and Bipolar 1 disorder F31.9 [facility] [place] [address] [address] Dec, Attention deficit hyperactivity disorder (ADHD), combined type F90.2 [facility] [place] [address] [address] Dec, Bipolar disorder, in partial remission, most recent episode hypomanic F31.71 ; Attention deficit hyperactivity disorder (ADHD), combined type F90.2 and Anxiety disorder, unspecified type F41.9 [place] [id number] [address] Dec, Bipolar disorder, in partial remission, most recent episode hypomanic F31.71 ; Attention deficit hyperactivity disorder (ADHD), combined type F90.2 and Anxiety disorder, unspecified type F41.9 [place] [address] [address] Dec, Bipolar 1 disorder F31.9 and Attention d eficit R41.840 [place] [address] [address] Oct, Other chronic pain G89.29 ; Alopecia L65 .9 and Screening, lipid Z13.220 [place] [address] [address] Oct, [place] [address] [address] Aug, [place] [address] [address] Aug, Eustachian tube dysfunction, right H69.8 1 ; Vertigo R42 and Other chronic pain G89.29 [place] [address] [address] Aug, [place] [address] [address] Jun, [place] [address] [address] Jun, Low back pain M54.5 and Other chronic pa in G89.29 [place] [address] [address] Jun, [place] [address] [address] May, [place] [address] [address] Jan, [facility] [place] [address] [address] Dec, [facility] [place] [address] [address] Dec, [facility] [place] [address] [address] Jun, [facility] [place] [address] [address] Apr, Eustachian tube dysfunction, unspecified laterality H69.80 ; Hot flashes N95.1 and Encounter for immunization Z23 [facility] [place] [address] [address] Jan, [facility] [place] [address] [address] Jan, [facility] [place] [address] [address] Jan, [facility] [place] [address] [address] Jan, [facility] [place] [address] [address] Jan, Encounter to establish care V65.8 ; Bipo lar 1 disorder 296.7 ; Abdominal pain 789.00 ; Constipation 564.00 ; Hard of hearing 389.9 and Drug abuse 305.90 [facility] [place] [address] [address] Dec, [facility] [place] [address] [address] October, [facility] [place] [address] [address] October, [facility] [place] [address] [address] Oct, [facility] [place] [address] [address] Oct, [facility] [address] [id number] [place] [address] Oct, [facility] [address] [id number] [place] [address] Aug, [facility] [address] [id number] [place] [address] Aug, [facility] [address] [id number] [place] [address] Aug, [facility] [address] [id number] [place] [address] Aug, 2014 [facility] [address] [id number] [place] [address] Aug, 2014 [facility] [address] [id number] [place] [address] Aug, 2014 [facility] [address] [id number] [place] [address] Aug, 2014 [facility] [address] [id number] [place] [address] Aug, 2014 [facility] [address] [id number] [place] [address] Aug, 2014 [facility] [address] [id number] [place] [address] Aug, 2014 [facility] [address] [id number] [place] [address] Aug, 2014 [facility] [address] [id number] [place] [address] Aug, 2014 [facility] [address] [id number] [place] [address] Aug, 2014 [facility] [address] [id number] [place] [address] Aug, 2014 [facility] [address] [id number] [place] [address] Aug, 2014 [facility] [address] [id number] [place] [address] Jul, [facility] [address] [id number] [place] [address] Jul, [facility] [address] [id number] [place] [address] Jul, [facility] [address] [id number] [place] [address] Jul, [facility] [address] [id number] [place] [address] Jul, [facility] [address] [id number] [place] [address] Jul, [facility] [address] [id number] [place] [address] Jul, [facility] [address] [id number] [place] [address] Jul, [facility] [address] [id number] [place] [address] Jun, [facility] [address] [id number] [place] [address] Jun, [facility] [address] [id number] [place] [address] Jun, [facility] [address] [id number] [place] [address] 29 Jun, 2014 [facility] [address] [id number] [place] [address] 18 Jun, 2014 [facility] [address] [id number] [place] [address] 15 Jun, 2014 [facility] [address] [id number] [place] [address] 15 Jun, 2014 [facility] [address] [id number] [place] [address] Jun, [facility] [address] [id number] [place] [address] Jun, [facility] [address] [id number] [place] [address] Jun, [facility] [address] [id number] [place] [address] Jun, [facility] [address] [id number] [place] [address] May, [facility] [address] [id number] [place] [address] May, [facility] [address] [id number] [place] [address] May, [facility] [address] [id number] [place] [address] May, [facility] [address] [id number] [place] [address] May, [facility] [id number] [place] [address] May, [facility] [address] [id number] [place] [address] May, [facility] [address] [id number] [place] [address] Apr, [facility] [address] [id number] [place] [address] Apr, [facility] [id number] [place] [address] Apr, [facility] [address] [id number] [place] [address] Apr, [facility] [address] [id number] [place] [address] Apr, [facility] [id number] [place] [address] Apr, [facility] [address] [id number] [place] [address] Mar, [facility] [address] [id number] [place] [address] Mar, 2013 [facility] [address] [facility] [id number] [place] [address] Mar, [facility] [address] [facility] [id number] [place] [address] Mar, [facility] [facility] [address] [id number] [place] [address] Mar, [facility] [place] [facility] [address] [id number] [place] [address] Mar, [facility] [place] [facility] [address] [facility] [id number] [place] [address] Jan, [facility] [place] [facility] [address] [id number] [place] [address] Jan, [facility] [place] [facility] [address] [id number] [place] [address] Jan, [facility] [place] [facility] [address] [id number] [place] [address] Jan, [facility] [place] [facility] [address] [id number] [place] [address] Dec, [facility] [place] [facility] [address] [id number] [place] [address] Dec, [facility] [place] [facility] [address] [id number] [place] [address] Dec, [facility] [place] [facility] [address] [id number] [place] [address] Dec, [facility] [place] [facility] [address] [id number] [place] [address] Dec, [facility] [place] [facility] [address] [id number] [place] [address] Dec, [facility] [place] [facility] [address] [id number] [place] [address] Dec, [facility] [place] [facility] [address] [id number] [place] [address] Dec, [facility] [place] [facility] [address] [id number] [place] [address] Dec, [facility] [place] [facility] [address] [id number] [place] [address] Dec, [facility] [place] [facility] [address] [id number] [place] [address] Dec, [facility] [place] [facility] [address] [id number] [place] [address] Dec, [facility] [place] [facility] [address] [id number] [place] [address] October, [facility] [place] [facility] [address] [id number] [place] [address] October, [facility] [place] [facility] [address] [id number] [place] [address] October, [facility] [place] [facility] [address] [id number] [place] [address] October, [facility] [place] [facility] [address] [id number] [place] [address] October, [facility] [place] [facility] [address] [id number] [place] [address] October, [facility] [place] [facility] [address] [id number] [place] [address] Oct, [facility] [place] [facility] [address] [id number] [place] [address] Oct, [facility] [place] [facility] [address] [id number] [place] [address] Oct, [facility] [place] [facility] [address] [id number] [place] [address] Oct, [facility] [place] [facility] [address] [id number] [place] [address] Oct, [facility] [place] [facility] [address] [id number] [place] [address] Oct, [facility] [place] [facility] [address] [id number] [place] [address] Oct, [facility] [place] [facility] [address] [id number] [place] [address] Oct, [facility] [place] [facility] [address] [id number] [place] [address] Oct, [facility] [place] [facility] [address] [id number] [place] [address] Oct, [facility] [place] [facility] [address] [id number] [place] [address] Oct, [facility] [place] [facility] [address] [id number] [place] [address] Oct, [facility] [place] [facility] [address] [id number] [place] [address] Aug, [facility] [place] [facility] [address] [id number] [place] [address] Aug, [facility] [place] [facility] [address] [id number] [place] [address] Aug, [facility] [place] [facility] [address] [id number] [place] [address] Aug, [facility] [place] [facility] [address] [id number] [place] [address] Aug, [facility] [place] [facility] [address] [id number] [place] [address] Aug, [facility] [place] [facility] [address] [id number] [place] [address] Aug, [facility] [place] [facility] [address] [id number] [place] [address] Aug, [facility] [place] [facility] [address] [id number] [place] [address] Aug, [facility] [place] [facility] [address] [id number] [place] [address] Aug, [facility] [place] [facility] [address] [id number] [place] [address] Aug, [facility] [place] [facility] [address] [id number] [place] [address] Aug, [facility] [place] [facility] [address] [id number] [place] [address] Aug, [facility] [place] [facility] [address] [id number] [place] [address] 20 Aug, 2013 [facility] [place] [facility] [address] [id number] [place] [address] Aug, [facility] [place] [facility] [address] [id number] [place] [address] Aug, [facility] [place] [facility] [address] [id number] [place] [address] Aug, [facility] [place] [facility] [address] [id number] [place] [address] Aug, [facility] [place] [facility] [address] [id number] [place] [address] Aug, [facility] [place] [facility] [address] [id number] [place] [address] 07 Aug, 2013 [facility] [place] [facility] [address] [id number] [place] [address] Aug, [facility] [place] [facility] [address] [id number] [place] [address] Aug, [facility] [place] [facility] [address] [id number] [place] [address] Aug, [facility] [place] [facility] [address] [id number] [place] [address] Aug, [facility] [place] [facility] [address] [id number] [place] [address] Aug, [facility] [place] [facility] [address] [id number] [place] [address] Jul, [facility] [place] [facility] [address] [id number] [place] [address] Jul, [facility] [place] [facility] [address] [id number] [place] [address] Jul, [facility] [place] [facility] [address] [id number] [place] [address] Jul, [facility] [place] [facility] [address] [id number] [place] [address] Jul, [facility] [place] [facility] [address] [id number] [place] [address] Jul, [facility] [place] [facility] [address] [id number] [place] [address] Jul, [facility] [place] [facility] [address] [facility] [id number] [place] [address] Jul, [facility] [place] [facility] [address] [id number] [place] [address] Jul, [facility] [place] [facility] [address] [id number] [place] [address] Jul, [facility] [place] [facility] [address] [id number] [place] [address] Jul, [facility] [place] [facility] [address] [id number] [place] [address] Jul, [facility] [place] [facility] [address] [id number] [place] [address] Jul, [facility] [place] [facility] [address] [id number] [place] [address] Jul, [facility] [place] [facility] [address] [id number] [place] [address] Jul, [facility] [place] [facility] [address] [id number] [place] [address] Jul, [facility] [place] [facility] [address] [id number] [place] [address] Jul, [facility] [place] [facility] [address] [id number] [place] [address] Jul, [facility] [place] [facility] [address] [id number] [place] [address] Jul, [facility] [place] [facility] [address] [id number] [place] [address] Jul, [facility] [place] [facility] [address] [facility] [id number] [place] [address] Jun, [facility] [place] [facility] [address] [id number] [place] [address] Jun, [facility] [place] [facility] [address] [id number] [place] [address] Jun, [facility] [place] [facility] [address] [id number] [place] [address] Jun, [facility] [place] [facility] [address] [id number] [place] [address] Jun, [facility] [place] [facility] [address] [id number] [place] [address] Jun, [facility] [place] [facility] [address] [id number] [place] [address] Jun, [facility] [place] [facility] [address] [id number] [place] [address] Jun, [facility] [place] [facility] [address] [id number] [place] [address] Jun, [facility] [place] [facility] [address] [id number] [place] [address] Jun, [facility] [place] [facility] [address] [id number] [place] [address] Jun, [facility] [place] [facility] [address] [id number] [place] [address] Jun, [facility] [place] [facility] [address] [id number] [place] [address] Jun, [facility] [place] [facility] [address] [id number] [place] [address] Jun, [facility] [place] [facility] [address] [id number] [place] [address] Jun, [facility] [place] [facility] [address] [id number] [place] [address] Jun, [facility] [place] [facility] [address] [id number] [place] [address] 18 Jun, 2013 [facility] [place] [facility] [address] [id number] [place] [address] 17 Jun, 2013 [facility] [place] [facility] [address] [id number] [place] [address] 17 Jun, 2013 [facility] [place] [facility] [address] [id number] [place] [address] 13 Jun, 2013 [facility] [place] [facility] [address] [id number] [place] [address] 12 Jun, 2013 [facility] [place] [facility] [address] [id number] [place] [address] 12 Jun, 2013 [facility] [place] [facility] [address] [id number] [place] [address] Jun, [facility] [place] [facility] [address] [id number] [place] [address] 05 Jun, 2013 [facility] [place] [facility] [address] [id number] [place] [address] 05 Jun, 2013 [facility] [place] [facility] [address] [id number] [place] [address] Jun, [facility] [place] [facility] [address] [id number] [place] [address] Jun, [facility] [place] [facility] [address] [id number] [place] [address] May, [facility] [place] [facility] [address] [id number] [place] [address] May, [facility] [place] [facility] [address] [id number] [place] [address] May, [facility] [place] [facility] [id number] [place] [address] May, [facility] [place] [facility] [address] [id number] [place] [address] May, [facility] [place] [facility] [address] [id number] [place] [address] 05 May, 2013 [facility] [place] [facility] [address] [id number] [place] [address] 30 Apr, 2012 [facility] [place] [facility] [address] [id number] [place] [address] Apr, 2012 [facility] [place] [facility] [address] [id number] [place] [address] Apr, 2012 [facility] [place] [facility] [address] [id number] [place] [address] Apr, 2012 [facility] [place] [facility] [address] [id number] [place] [address] Apr, 2012 [facility] [place] [facility] [address] [id number] [place] [address] Apr, 2012 [facility] [place] [facility] [address] [id number] [place] [address] 15 Apr, 2013 [facility] [place] [facility] [address] [id number] [place] [address] Apr, 2012 [facility] [place] [facility] [address] [id number] [place] [address] 26 Sep, 2012 [facility] [place] [facility] [address] [id number] [place] [address] 24 Sep, 2012 [facility] [place] [facility] [address] [id number] [place] [address] 17 Sep, 2012 [facility] [place] [facility] [address] [id number] [place] [address] 17 Sep, 2012 [facility] [place] [facility] [address] [id number] [place] [address] 11 Sep, 2012 [facility] [place] [facility] [address] [id number] [place] [address] 10 Sep, 2012 [facility] [place] [facility] [address] [id number] [place] [address] 05 Sep, 2012 [facility] [place] [facility] [address] [id number] [place] [address] 04 Sep, 2012 [facility] [place] [facility] [address] [id number] [place] [address] Jan, [facility] [place] [facility] [address] [id number] [place] [address] Jan, [facility] [place] [facility] [address] [facility] [id number] [place] [address] 14 Jan, 2013 [facility] [place] [facility] [address] [id number] [place] [address] Jan, [facility] [place] [facility] [address] [facility] [id number] [place] [address] Jan, [facility] [place] [facility] [address] [facility] [id number] [place] [address] Jan, [facility] [place] [facility] [address] [facility] [id number] [place] [address] 31 Dec, 2012 [facility] [place] [facility] [address] [id number] [place] [address] 24 Dec, 2012 [facility] [place] [facility] [address] [id number] [place] [address] Dec, [facility] [place] [facility] [address] [facility] [id number] [place] [address] Dec, [facility] [place] [facility] [address] [id number] [place] [address] 18 Dec, 2012 [facility] [place] [facility] [address] [id number] [place] [address] 17 Dec, 2012 [facility] [place] [facility] [address] [id number] [place] [address] 16 Dec, 2012 [facility] [place] [facility] [address] [facility] [id number] [place] [address] 16 Dec, 2012 [facility] [place] [facility] [address] [id number] [place] [address] 15 Dec, 2012 [facility] [place] [facility] [address] [facility] [id number] [place] [address] 10 Dec, 2012 [facility] [place] [facility] [address] [id number] [place] [address] Dec, [facility] [place] [facility] [address] [id number] [place] [address] Dec, [facility] [place] [facility] [address] [id number] [place] [address] Dec, [facility] [place] [facility] [address] [id number] [place] [address] Dec, [facility] [place] [facility] [address] [id number] [place] [address] Dec, [facility] [place] [facility] [address] [id number] [place] [address] Dec, [facility] [place] [facility] [address] [id number] [place] [address] October, [facility] [place] [facility] [address] [id number] [place] [address] October, [facility] [place] [facility] [address] [id number] [place] [address] October, [facility] [place] [facility] [address] [id number] [place] [address] October, [facility] [place] [facility] [address] [id number] [place] [address] October, [facility] [place] [facility] [address] [id number] [place] [address] October, [facility] [place] [facility] [address] [id number] [place] [address] October, [facility] [place] [facility] [address] [id number] [place] [address] Oct, [facility] [place] [facility] [address] [id number] [place] [address] Oct, [facility] [place] [facility] [address] [id number] [place] [address] 24 Oct, 2012 [facility] [place] [facility] [address] [id number] [place] [address] Oct, [facility] [place] [facility] [address] [id number] [place] [address] Oct, [facility] [address] [id number] [place] [address] 18 Oct, 2012 [facility] [place] [facility] [address] [id number] [place] [address] 17 Oct, 2012 [facility] [place] [facility] [address] [id number] [place] [address] 15 Oct, 2012 [facility] [place] [facility] [address] [id number] [place] [address] 12 Oct, 2012 [facility] [place] [facility] [address] [facility] [id number] [place] [address] Oct, [facility] [place] [facility] [address] [id number] [place] [address] Oct, [facility] [place] [facility] [address] [id number] [place] [address] Oct, [facility] [place] [facility] [address] [id number] [place] [address] Aug, [facility] [place] [facility] [address] [id number] [place] [address] Aug, [facility] [place] [facility] [address] [id number] [place] [address] Aug, [facility] [place] [facility] [address] [id number] [place] [address] 06 Aug, 2012 [facility] [place] [facility] [address] [id number] [place] [address] 05 Aug, 2012 [facility] [place] [facility] [address] [id number] [place] [address] 05 Aug, 2012 [facility] [place] [facility] [address] [id number] [place] [address] 20 Aug, 2012 [facility] [place] [facility] [address] [id number] [place] [address] 14 Aug, 2012 [facility] [place] [facility] [address] [id number] [place] [address] 12 Aug, 2012 [facility] [place] [facility] [address] [id number] [place] [address] 11 Aug, 2012 [facility] [place] [facility] [address] [id number] [place] [address] Jul, [facility] [place] [facility] [address] [id number] [place] [address] 15 Jul, 2012 [facility] [place] [facility] [address] [id number] [place] [address] 08 Jul, 2012 [facility] [place] [facility] [address] [id number] [place] [address] 20 Jun, 2012 [facility] [place] [facility] [address] [id number] [place] [address] 18 Jun, 2012 [facility] [place] [facility] [address] [id number] [place] [address] 18 Jun, 2012 [facility] [place] [facility] [address] [id number] [place] [address] 18 Jun, 2012 [facility] [place] [facility] [address] [id number] [place] [address] 18 Jun, 2012 [facility] [place] [facility] [address] [id number] [place] [address] 14 Jun, 2012 [facility] [place] [facility] [address] [id number] [place] [address] 14 Jun, 2012 [facility] [place] [facility] [address] [id number] [place] [address] 13 Jun, 2012 [facility] [place] [facility] [address] [id number] [place] [address] 13 Jun, 2012 [facility] [place] [facility] [address] [id number] [place] [address] 11 Jun, 2012 [facility] [place] [facility] [address] [id number] [place] [address] 11 Jun, 2012 [facility] [place] [facility] [address] [id number] [place] [address] 11 Jun, 2012 [facility] [address] [id number] [place] [address] 11 Jun, 2012 [facility] [address] [id number] [place] [address] Jun, [facility] [address] [id number] [place] [address] Jun, [facility] [address] [id number] [place] [address] Jun, [facility] [address] [id number] [place] [address] Jun, [facility] [address] [id number] [place] [address] Jun, [facility] [address] [id number] [place] [address] Jun, [facility] [address] [id number] [place] [address] Jun, [facility] [address] [id number] [place] [address] Jun, [facility] [address] [id number] [place] [address] Jun, [facility] [address] [id number] [place] [address] Jun, [facility] [address] [id number] [place] [address] May, [facility] [address] [id number] [place] [address] May, [facility] [address] [id number] [place] [address] May, [facility] [address] [id number] [place] [address] May, [facility] [address] [id number] [place] [address] May, [facility] [address] [id number] [place] [address] May, [facility] [address] [id number] [place] [address] May, [facility] [address] [id number] [place] [address] May, 2011 [facility] [address] [id number] [place] [address] Apr, [facility] [address] [id number] [place] [address] Apr, [facility] [address] [id number] [place] [address] Apr, [facility] [address] [id number] [place] [address] Apr, [facility] [address] [id number] [place] [address] Apr, [facility] [address] [id number] [place] [address] Apr, [facility] [address] [id number] [place] [address] Apr, [facility] [address] [id number] [place] [address] Apr, [facility] [address] [id number] [place] [address] Apr, [facility] [address] [id number] [place] [address] 08 Apr, 2012 [facility] [address] [id number] [place] [address] 04 Apr, 2012 [facility] [address] [id number] [place] [address] 02 Apr, 2012 [facility] [address] [id number] [place] [address] 19 Sep, 2011 [facility] [address] [id number] [place] [address] 18 Sep, 2011 [facility] [address] [id number] [place] [address] 12 Mar, 2011 [facility] [address] [id number] [place] [address] Mar, [facility] [address] [id number] [place] [id number] Mar, [facility] [address] [id number] [place] [id number] Mar, [facility] [address] [id number] [place] [address] Mar, [facility] [address] [id number] [place] [address] Jan, [facility] [address] [id number] [place] [address] Jan, [facility] [address] [id number] [place] [id number] Jan, [facility] [address] [id number] [place] [id number] Jan, [facility] [address] [id number] [place] [address] Jan, [facility] [address] [id number] [place] [address] Jan, [facility] [address] [id number] [place] [address] Jan, [facility] [address] [id number] [place] [address] Jan, [facility] [address] [id number] [place] [address] Jan, [facility] [address] [id number] [place] [address] Jan, [facility] [address] [id number] [place] [address] Jan, [facility] [address] [id number] [place] [address] Dec, [facility] [address] [id number] [place] [address] Dec, [facility] [address] [id number] [place] [address] 26 Dec, 2011 [facility] [address] [id number] [place] [address] 26 Jan, 2012 [facility] [address] [id number] [place] [address] 20 Jan, 2012 [facility] [address] [id number] [place] [address] 19 Jan, 2012 [facility] [address] [id number] [place] [address] 18 Dec, 2011 [facility] [address] [facility] [id number] [place] [address] 17 Jan, 2012 [facility] [address] [id number] [place] [address] 16 Jan, 2012 [facility] [address] [id number] [place] [address] 13 Jan, 2012 [facility] [address] [id number] [place] [address] 13 Jan, 2012 [facility] [address] [id number] [place] [address] Dec, [facility] [address] [id number] [place] [address] Dec, [facility] [address] [id number] [place] [address] 27 Dec, 2011 [facility] [address] [id number] [place] [address] 25 Dec, 2011 [facility] [address] [id number] [place] [address] 18 Dec, 2011 [facility] [address] [id number] [place] [address] 15 Dec, 2011 [facility] [address] [id number] [place] [address] 06 Dec, 2011 [facility] [address] [id number] [place] [address] Dec, [facility] [address] [id number] [place] [address] October, [facility] [address] [id number] [place] [address] October, [facility] [address] [id number] [place] [address] October, [facility] [address] [id number] [place] [address] October, [facility] [address] [id number] [place] [address] October, [facility] [address] [id number] [place] [address] October, [facility] [address] [id number] [place] [address] Oct, [facility] [address] [id number] [place] [address] Oct, [facility] [address] [id number] [place] [address] Oct, [facility] [address] [id number] [place] [address] Oct, [facility] [address] [id number] [place] [address] Oct, [facility] [address] [id number] [place] [address] Oct, [facility] [address] [id number] [place] [address] Oct, [facility] [address] [id number] [place] [address] Aug, [facility] [address] [id number] [place] [address] Aug, [facility] [address] [id number] [place] [address] Aug, [facility] [address] [id number] [place] [address] 13 Sep, 2011 [facility] [address] [id number] [place] [address] Aug, [facility] [address] [id number] [place] [address] 05 Sep, 2011 [facility] [address] [id number] [place] [address] 27 Aug, 2011 [facility] [address] [id number] [place] [address] Aug, [facility] [address] [id number] [place] [address] 08 Aug, 2011 [facility] [address] [id number] [place] [address] Jul, [facility] [address] [id number] [place] [address] Jul, [facility] [address] [id number] [place] [address] Jul, [facility] [address] [id number] [place] [address] Jul, [facility] [address] [id number] [place] [address] Jun, [facility] [address] [id number] [place] [address] Jun, [facility] [address] [id number] [place] [address] May, [facility] [address] [id number] [place] [address] May, [facility] [address] [id number] [place] [address] May, [facility] [address] [id number] [place] [address] May, [facility] [address] [id number] [place] [address] May, [facility] [address] [id number] [place] [address] Apr, [facility] [place] [address] [id number] [place] [address] Apr, [facility] [place] [address] [id number] [place] [address] Apr, [facility] [place] [address] [id number] [place] [address] Jan, [facility] [place] [id number] [place] [address] Dec, [facility] [place] [id number] [place] [address] October, [facility] [place] [id number] [place] [address] Jun, [facility] [place] [id number] [place] [address] Apr, [facility] [place] [id number] [place] [address] Apr, [facility] [place] [address] [id number] [place] [address] Apr, [facility] [place] [address] [id number] [place] [address] Jun, IMMUNIZATIONS No Known Immunizations SOCIAL HISTORY [...]
--- OUTSIDE RECORDS SUMMARY | 2020-01-25 12:26 | XMS REPORT ---
Author Author Quang Mayereen Doctor Organization [facility] Address Unknown Phone Unavailable Care Team Providers Care Visitor Service Assistant Name Role Phone Migration, Doctor Unavailable Unavailable PROBLEMS Type Condition ICD9-CM Code [id number] Code Onset Dates Condition S tatus SNOMED Code Problem Chronic hepatitis C without hepatic coma B18.2 Active 734780374 Problem Cannabis abuse F12.10 Active 74020 009 Problem Bipolar 1 disorder F31.9 Active 3 87321937 Problem Attention deficit hyperactivity disorder (ADHD), combi luciano type F90.2 Active 99928540 Problem Attention deficit R41.840 Active 76 606257 Problem Hot flashes due to menopause N95.1 A ctive 711201596 Problem H/O laminectomy Z98.89 Active 1616 48754 Problem Other chronic pain G89.29 Active 8 1492397 Problem Anxiety disorder, unspecified type F41.9 Active 856009810 Problem Bipolar disorder, in partial remission, most rec ent episode hypomanic F31.71 Active 016412239 ALLERGIES No Information ENCOUNTERS Encounter Location Date Diagnosis [place] [address] [address] Aug, [facility] [address] [address] Jul, [place] [address] [address] Jul, [facility] [address] [address] Apr, [place] [address] [address] Mar, Hot flashes due to menopause N95.1 ; Anx iety disorder, unspecified type F41.9 ; Low back pain M54.5 and Encounter for immunization Z23 [place] [address] [address] Dec, Other chronic pain G89.29 and Low back p ain M54.5 [facility] [address] [address] October, [facility] [address] [address] October, [facility] [address] [address] October, [facility] [address] [address] October, Other chronic pain G89.29 and Chronic he patitis C without hepatic coma B18.2 [facility] [address] [address] Aug, Bipolar disorder, in partial remission, most recent episode hypomanic F31.71 ; Attention deficit hyperactivity disorder (ADHD), combined type F90.2 and Anxiety disorder, unspecified type F41.9 [facility] [address] [address] Aug, [facility] [address] [address] Aug, Bipolar disorder, in partial remission, most recent episode hypomanic F31.71 [facility] [address] [address] 14 Aug, 2018 [facility] [address] [address] Aug, Bipolar disorder, in partial remission, most recent episode hypomanic F31.71 [facility] [address] [address] Aug, Bipolar disorder, in partial remission, most recent episode hypomanic F31.71 ; Attention deficit hyperactivity disorder (ADHD), combined type F90.2 and Anxiety disorder, unspecified type F41.9 [facility] [address] [address] Aug, Low back pain M54.5 and Pain in left wri st M25.532 [facility] [address] [address] Aug, [facility] [address] [address] Jun, [facility] [address] [address] Apr, Bipolar disorder, in partial remission, most recent episode hypomanic F31.71 [facility] [address] [address] Apr, [place] [address] [address] Apr, Bipolar disorder, in partial remission, most recent episode hypomanic F31.71 ; Attention deficit hyperactivity disorder (ADHD), combined type F90.2 ; Anxiety disorder, unspecified type F41.9 and Other terminal gauger (current) 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 Z79.899 [place] [address] [address] Apr, Bipolar disorder, in partial remission, most recent episode hypomanic F31.71 [place] [address] [address] Apr, Bipolar disorder, in partial remission, most recent episode hypomanic F31.71 [place] [address] [address] Mar, [place] [address] [address] Mar, Bipolar disorder, in partial remission, most recent episode hypomanic F31.71 ; Encounter for immunization Z23 and Low back pain M54.5 [facility] [address] [address] 17 Mar, 2018 Bipolar disorder, in partial remission, most recent episode hypomanic F31.71 [facility] [address] [address] Mar, Bipolar disorder, in partial remission, most recent episode hypomanic F31.71 [facility] [address] [id number] [place] [address] Jan, Bipolar disorder, in partial remission, most recent episode hypomanic F31.71 [facility] [address] [id number] [place] [address] Jan, Bipolar disorder, in partial remission, most recent episode hypomanic F31.71 [facility] [address] [id number] [place] [address] Dec, Bipolar disorder, in partial remission, most recent episode hypomanic F31.71 [facility] [address] [id number] [place] [address] Dec, Bipolar disorder, in partial remission, most recent episode hypomanic F31.71 ; Attention deficit hyperactivity disorder (ADHD), combined type F90.2 ; Anxiety disorder, unspecified type F41.9 and Other assisted (current) 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 Z79.899 [facility] [address] [place] [id number] [place] [address] Dec, Bipolar disorder, in partial remission, most recent episode hypomanic F31.71 [facility] [address] [id number] [place] [address] Dec, Bipolar disorder, in partial remission, most recent episode hypomanic F31.71 [facility] [address] [id number] [place] [address] October, Bipolar disorder, in partial remission, most recent episode hypomanic F31.71 [facility] [address] [id number] [place] [address] October, [facility] [address] [id number] [place] [address] October, [facility] [address] [id number] [place] [address] Oct, Bipolar disorder, in partial remission, most recent episode hypomanic F31.71 ; Attention deficit hyperactivity disorder (ADHD), combined type F90.2 ; Anxiety disorder, unspecified type F41.9 and Encounter for drug screening Z02.83 [facility] [address] [place] [id number] [place] [address] Oct, Bipolar disorder, in partial remission, most recent episode hypomanic F31.71 [facility] [address] [place] [id number] [place] [address] Oct, Bipolar disorder, in partial remission, most recent episode hypomanic F31.71 [facility] [address] [address] Aug, Bipolar disorder, in partial remission, most recent episode hypomanic F31.71 [facility] [address] [address] Aug, Bipolar disorder, in partial remission, most recent episode hypomanic F31.71 [facility] [address] [address] Aug, Bipolar disorder, in partial remission, most recent episode hypomanic F31.71 [facility] [address] [place] [id number] [place] [address] Jul, Bipolar disorder, in partial remission, most recent episode hypomanic F31.71 ; Attention deficit hyperactivity disorder (ADHD), combined type F90.2 and Anxiety disorder, unspecified type F41.9 [facility] [address] [place] [id number] [place] [address] Jul, Bipolar disorder, in partial remission, most recent episode hypomanic F31.71 [facility] [address] [place] [id number] [place] [address] Jun, Bipolar disorder, in partial remission, most recent episode hypomanic F31.71 [facility] [address] [place] [id number] [place] [address] May, Bipolar disorder, in partial remission, most recent episode hypomanic F31.71 [facility] [address] [place] [id number] [place] [address] May, Bipolar disorder, in partial remission, most recent episode hypomanic F31.71 [place] [address] [address] Apr, [place] [address] [address] Apr, Bipolar disorder, in partial remission, most recent episode hypomanic F31.71 ; Attention deficit hyperactivity disorder (ADHD), combined type F90.2 ; Anxiety disorder, unspecified type F41.9 and Cannabis abuse F12.10 [place] [address] [address] Apr, Attention deficit hyperactivity disorder (ADHD), combined type F90.2 [place] [address] [address] Mar, Attention deficit hyperactivity disorder (ADHD), combined type F90.2 [place] [address] [address] 14 Mar, 2017 Anxiety disorder, unspecified type F41.9 [place] [address] [address] Jan, Attention deficit hyperactivity disorder (ADHD), combined type F90.[address] [address] Jan, Anxiety disorder, unspecified type F41.[address] [address] Jan, Other chronic pain G89.29 ; Chronic hepa titis C without hepatic coma B18.2 and Bipolar 1 disorder F31.9 [place] [address] [address] Dec, Attention deficit hyperactivity disorder (ADHD), combined type F90.2 [place] [address] [address] Dec, Bipolar disorder, in partial remission, most recent episode hypomanic F31.71 ; Attention deficit hyperactivity disorder (ADHD), combined type F90.2 and Anxiety disorder, unspecified type F41.9 [place] [address] [address] Dec, Bipolar disorder, in partial remission, most recent episode hypomanic F31.71 ; Attention deficit hyperactivity disorder (ADHD), combined type F90.2 and Anxiety disorder, unspecified type F41.9 [place] [address] [address] Dec, Bipolar 1 disorder F31.9 and Attention d eficit R41.840 [place] [address] [address] Oct, Other chronic pain G89.29 ; Alopecia L65 .9 and Screening, lipid Z13.220 [place] [address] [address] Oct, [place] [address] [address] Aug, [place] [address] [address] Aug, Eustachian tube dysfunction, right H69.8 1 ; Vertigo R42 and Other chronic pain G89.29 [place] [address] [address] Aug, [place] [address] [address] Jun, [place] [address] [address] Jun, Low back pain M54.5 and Other chronic pa in G89.29 [place] [address] [address] Jun, [place] [address] [address] May, [place] [address] [address] Jan, [place] [address] [address] Dec, [facility] [address] [address] Dec, [facility] [address] [address] Jun, [facility] [address] [address] Apr, Eustachian tube dysfunction, unspecified laterality H69.80 ; Hot flashes N95.1 and Encounter for immunization Z23 [facility] [address] [address] Jan, [facility] [address] [address] Jan, [facility] [address] [address] Jan, [facility] [address] [address] Jan, [facility] [address] [address] Jan, Encounter to establish care V65.8 ; Bipo lar 1 disorder 296.7 ; Abdominal pain 789.00 ; Constipation 564.00 ; Hard of hearing 389.9 and Drug abuse 305.90 [facility] [address] [address] Dec, [facility] [address] [address] October, [facility] [address] [address] October, [facility] [address] [address] Oct, [facility] [address] [address] Oct, [facility] [address] [address] Oct, [facility] [place] [facility] [address] [id number] [place] [address] Aug, [facility] [place] [facility] [address] [id number] [place] [address] Aug, [facility] [place] [facility] [address] [id number] [place] [address] Aug, [facility] [place] [facility] [address] [id number] [place] [address] Aug, 2014 [facility] [place] [facility] [address] [id number] [place] [address] Aug, 2014 [facility] [place] [facility] [address] [id number] [place] [address] Aug, 2014 [facility] [place] [facility] [address] [id number] [place] [address] Aug, 2014 [facility] [place] [facility] [address] [id number] [place] [address] Aug, 2014 [facility] [place] [facility] [address] [id number] [place] [address] Aug, 2014 [facility] [place] [facility] [address] [id number] [place] [address] Aug, 2014 [facility] [place] [facility] [address] [id number] [place] [address] Aug, 2014 [facility] [place] [facility] [address] [id number] [place] [address] Aug, 2014 [facility] [place] [facility] [address] [id number] [place] [address] Aug, 2014 [facility] [place] [facility] [address] [id number] [place] [address] Aug, 2014 [facility] [place] [facility] [address] [id number] [place] [address] Aug, 2014 [facility] [place] [facility] [address] [id number] [place] [address] Jul, [facility] [place] [facility] [address] [id number] [place] [address] Jul, [facility] [place] [facility] [address] [facility] [id number] [place] [address] Jul, [facility] [place] [facility] [address] [id number] [place] [address] Jul, [facility] [place] [facility] [address] [id number] [place] [address] Jul, [facility] [place] [facility] [address] [id number] [place] [address] Jul, [facility] [place] [facility] [address] [id number] [place] [address] Jul, [facility] [place] [facility] [address] [id number] [place] [address] Jul, [facility] [place] [facility] [address] [id number] [place] [address] Jun, [facility] [place] [facility] [address] [id number] [place] [address] Jun, [facility] [place] [facility] [address] [id number] [place] [address] Jun, [facility] [place] [facility] [address] [id number] [place] [address] Jun, [facility] [place] [facility] [address] [id number] [place] [address] Jun, [facility] [place] [facility] [address] [id number] [place] [address] 15 Jun, 2014 [facility] [place] [facility] [address] [id number] [place] [address] 15 Jun, 2014 [facility] [place] [facility] [address] [id number] [place] [address] Jun, [facility] [place] [facility] [address] [id number] [place] [address] Jun, [facility] [place] [facility] [address] [id number] [place] [address] Jun, [facility] [place] [facility] [address] [id number] [place] [address] Jun, [facility] [place] [facility] [address] [id number] [place] [address] May, [facility] [place] [facility] [address] [id number] [place] [address] May, [facility] [place] [facility] [address] [id number] [place] [address] May, [facility] [place] [facility] [address] [id number] [place] [address] May, [facility] [place] [facility] [address] [id number] [place] [address] May, [facility] [place] [facility] [address] [id number] [place] [address] May, [facility] [place] [facility] [address] [place] [id number] [place] [address] May, [facility] [place] [facility] [address] [id number] [place] [address] Apr, [facility] [place] [facility] [address] [id number] [place] [address] Apr, [facility] [place] [facility] [address] [id number] [place] [address] Apr, [facility] [place] [facility] [address] [id number] [place] [address] Apr, [facility] [place] [facility] [address] [id number] [place] [address] Apr, [facility] [place] [facility] [address] [id number] [place] [address] Apr, [facility] [place] [facility] [address] [place] [id number] [place] [address] Mar, [facility] [place] [facility] [address] [id number] [place] [address] 29 Mar, 2014 [facility] [place] [facility] [address] [id number] [place] [address] Mar, [facility] [place] [facility] [address] [facility] [id number] [place] [address] Mar, [facility] [place] [facility] [address] [facility] [id number] [place] [address] Mar, [facility] [place] [facility] [address] [id number] [place] [address] Mar, [facility] [place] [facility] [address] [facility] [id number] [place] [address] Jan, [facility] [place] [facility] [address] [facility] [id number] [place] [address] Jan, [facility] [place] [facility] [address] [id number] [place] [address] Jan, [facility] [place] [facility] [address] [id number] [place] [address] Jan, [facility] [place] [facility] [address] [id number] [place] [address] Dec, [facility] [place] [facility] [address] [facility] [id number] [place] [address] Dec, [facility] [place] [facility] [address] [id number] [place] [address] Dec, [facility] [place] [facility] [address] [id number] [place] [address] Dec, [facility] [place] [facility] [address] [id number] [place] [address] Dec, [facility] [place] [facility] [address] [facility] [id number] [place] [address] Dec, [facility] [place] [facility] [address] [facility] [id number] [place] [address] Dec, [facility] [place] [facility] [address] [facility] [id number] [place] [address] Dec, [facility] [place] [facility] [address] [id number] [place] [address] Dec, [facility] [place] [facility] [address] [facility] [id number] [place] [address] Dec, [facility] [place] [facility] [address] [id number] [place] [address] Dec, [facility] [place] [facility] [address] [id number] [place] [address] Dec, [facility] [place] [facility] [address] [id number] [place] [address] October, [facility] [place] [facility] [address] [id number] [place] [address] October, [facility] [place] [facility] [address] [id number] [place] [address] October, [facility] [place] [facility] [address] [id number] [place] [address] October, [facility] [place] [facility] [address] [id number] [place] [address] October, [facility] [place] [facility] [address] [id number] [place] [address] October, [facility] [place] [facility] [address] [id number] [place] [address] Oct, [facility] [place] [facility] [address] [id number] [place] [address] Oct, [facility] [place] [facility] [address] [id number] [place] [address] Oct, [facility] [place] [facility] [address] [id number] [place] [address] Oct, [facility] [place] [facility] [address] [id number] [place] [address] Oct, [facility] [place] [facility] [address] [id number] [place] [address] Oct, [facility] [place] [facility] [address] [id number] [place] [address] Oct, [facility] [place] [facility] [address] [id number] [place] [address] Oct, [facility] [place] [facility] [address] [id number] [place] [address] Oct, [facility] [place] [facility] [address] [id number] [place] [address] Oct, [facility] [place] [facility] [address] [id number] [place] [address] Oct, [facility] [place] [facility] [address] [id number] [place] [address] Oct, [facility] [place] [facility] [address] [id number] [place] [address] Aug, [facility] [place] [facility] [address] [id number] [place] [address] Aug, [facility] [place] [facility] [address] [id number] [place] [address] Aug, [facility] [address] [id number] [place] [address] Aug, [facility] [address] [id number] [place] [address] Aug, [facility] [address] [id number] [place] [address] Aug, [facility] [address] [id number] [place] [address] Aug, [facility] [address] [id number] [place] [address] Aug, [facility] [address] [id number] [place] [address] Aug, [facility] [address] [id number] [place] [address] Aug, [facility] [address] [id number] [place] [address] Aug, [facility] [address] [id number] [place] [address] Aug, [facility] [address] [id number] [place] [address] Aug, [facility] [address] [id number] [place] [address] Aug, [facility] [address] [id number] [place] [address] Aug, [facility] [address] [id number] [place] [address] Aug, [facility] [address] [id number] [place] [address] Aug, [facility] [address] [id number] [place] [address] Aug, [facility] [address] [id number] [place] [address] Aug, [facility] [address] [id number] [place] [address] Aug, [facility] [address] [id number] [place] [address] Aug, [facility] [address] [id number] [place] [address] Aug, [facility] [address] [id number] [place] [address] Aug, [facility] [address] [id number] [place] [address] Aug, [facility] [address] [id number] [place] [address] Aug, [facility] [address] [id number] [place] [address] Jul, [facility] [address] [id number] [place] [address] Jul, [facility] [address] [id number] [place] [address] Jul, [facility] [address] [id number] [place] [address] Jul, [facility] [id number] [place] [address] Jul, [facility] [address] [id number] [place] [address] Jul, [facility] [place] [facility] [address] [id number] [place] [address] Jul, [facility] [place] [facility] [address] [id number] [place] [address] Jul, [facility] [place] [facility] [address] [facility] [id number] [place] [address] Jul, [facility] [place] [facility] [address] [id number] [place] [address] Jul, [facility] [place] [facility] [address] [id number] [place] [address] Jul, [facility] [place] [facility] [address] [id number] [place] [address] Jul, [facility] [place] [facility] [address] [id number] [place] [address] Jul, [facility] [place] [facility] [address] [id number] [place] [address] Jul, [facility] [place] [facility] [address] [id number] [place] [address] Jul, [facility] [place] [facility] [address] [id number] [place] [address] Jul, [facility] [place] [facility] [address] [id number] [place] [address] Jul, [facility] [place] [facility] [address] [id number] [place] [address] Jul, [facility] [place] [facility] [address] [id number] [place] [address] Jul, [facility] [place] [facility] [address] [id number] [place] [address] Jul, [facility] [place] [facility] [address] [id number] [place] [address] 31 Jun, 2013 [facility] [place] [facility] [address] [facility] [id number] [place] [address] Jun, [facility] [place] [facility] [address] [id number] [place] [address] Jun, [facility] [place] [facility] [address] [id number] [place] [address] Jun, [facility] [place] [facility] [address] [id number] [place] [address] Jun, [facility] [place] [facility] [address] [id number] [place] [address] Jun, [facility] [place] [facility] [address] [id number] [place] [address] Jun, [facility] [place] [facility] [address] [id number] [place] [address] Jun, [facility] [place] [facility] [address] [id number] [place] [address] Jun, [facility] [place] [facility] [address] [id number] [place] [address] Jun, [facility] [place] [facility] [address] [id number] [place] [address] Jun, [facility] [place] [facility] [address] [id number] [place] [address] Jun, [facility] [place] [facility] [address] [id number] [place] [address] Jun, [facility] [place] [facility] [address] [id number] [place] [address] Jun, [facility] [place] [facility] [address] [id number] [place] [address] Jun, [facility] [place] [facility] [address] [id number] [place] [address] Jun, [facility] [place] [facility] [address] [id number] [place] [address] Jun, [facility] [place] [facility] [address] [id number] [place] [address] 17 Jun, 2013 [facility] [place] [facility] [address] [id number] [place] [address] 17 Jun, 2013 [facility] [place] [facility] [address] [id number] [place] [address] Jun, [facility] [place] [facility] [address] [id number] [place] [address] Jun, [facility] [place] [facility] [address] [id number] [place] [address] Jun, [facility] [place] [facility] [address] [id number] [place] [address] Jun, [facility] [place] [facility] [address] [id number] [place] [address] Jun, [facility] [place] [facility] [address] [id number] [place] [address] Jun, [facility] [place] [facility] [address] [id number] [place] [address] Jun, [facility] [place] [facility] [address] [id number] [place] [address] Jun, [facility] [place] [facility] [address] [id number] [place] [address] May, [facility] [place] [facility] [address] [id number] [place] [address] May, [facility] [place] [facility] [address] [id number] [place] [address] May, [facility] [place] [facility] [address] [id number] [place] [address] May, [facility] [place] [facility] [address] [id number] [place] [address] May, [facility] [place] [facility] [address] [id number] [place] [address] May, [facility] [place] [facility] [address] [id number] [place] [address] Apr, [facility] [place] [facility] [address] [id number] [place] [address] 30 Apr, 2012 [facility] [place] [facility] [address] [id number] [place] [address] 30 Apr, 2012 [facility] [place] [facility] [address] [id number] [place] [address] 30 Apr, 2012 [facility] [place] [facility] [address] [id number] [place] [address] Apr, 2012 [facility] [place] [facility] [address] [facility] [id number] [place] [address] 15 Apr, 2012 [facility] [place] [facility] [address] [id number] [place] [address] 15 Apr, 2012 [facility] [place] [facility] [address] [id number] [place] [address] Apr, [facility] [place] [facility] [address] [id number] [place] [address] 26 Mar, 2012 [facility] [place] [facility] [address] [id number] [place] [address] 24 Sep, 2012 [facility] [place] [facility] [address] [id number] [place] [address] 17 Sep, 2012 [facility] [place] [facility] [address] [id number] [place] [address] 17 Sep, 2012 [facility] [place] [facility] [address] [id number] [place] [address] 11 Sep, 2012 [facility] [place] [facility] [address] [id number] [place] [address] 10 Sep, 2012 [facility] [place] [facility] [address] [id number] [place] [address] 05 Sep, 2012 [facility] [place] [facility] [address] [id number] [place] [address] 04 Sep, 2012 [facility] [place] [facility] [address] [id number] [place] [address] 20 Jan, 2012 [facility] [place] [facility] [address] [id number] [place] [address] Jan, [facility] [place] [facility] [address] [id number] [place] [address] Jan, [facility] [place] [facility] [address] [facility] [id number] [place] [address] Jan, [facility] [place] [facility] [address] [id number] [place] [address] Jan, [facility] [place] [facility] [address] [facility] [id number] [place] [address] 05 Jan, 2013 [facility] [place] [facility] [address] [facility] [id number] [place] [address] Dec, [facility] [place] [facility] [address] [facility] [id number] [place] [address] 24 Dec, 2012 [facility] [place] [facility] [address] [id number] [place] [address] Dec, [facility] [place] [facility] [address] [id number] [place] [address] Dec, [facility] [place] [facility] [address] [facility] [id number] [place] [address] Dec, [facility] [place] [facility] [address] [id number] [place] [address] 17 Dec, 2012 [facility] [place] [facility] [address] [id number] [place] [address] 16 Dec, 2012 [facility] [place] [facility] [address] [id number] [place] [address] 16 Dec, 2012 [facility] [place] [facility] [address] [facility] [id number] [place] [address] 15 Dec, 2012 [facility] [place] [facility] [address] [id number] [place] [address] Dec, [facility] [place] [facility] [address] [facility] [id number] [place] [address] Dec, [facility] [place] [facility] [address] [id number] [place] [address] Dec, [facility] [place] [facility] [address] [id number] [place] [address] Dec, [facility] [place] [facility] [address] [id number] [place] [address] Dec, [facility] [place] [facility] [address] [id number] [place] [address] Dec, [facility] [place] [facility] [address] [id number] [place] [address] Dec, [facility] [place] [facility] [address] [id number] [place] [address] October, [facility] [place] [facility] [address] [id number] [place] [address] October, [facility] [place] [facility] [address] [id number] [place] [address] October, [facility] [place] [facility] [address] [id number] [place] [address] October, [facility] [place] [facility] [address] [id number] [place] [address] October, [facility] [place] [facility] [address] [id number] [place] [address] October, [facility] [place] [facility] [address] [id number] [place] [address] October, [facility] [place] [facility] [address] [id number] [place] [address] Oct, [facility] [place] [facility] [address] [id number] [place] [address] Oct, [facility] [place] [facility] [address] [id number] [place] [address] Oct, [facility] [place] [facility] [address] [id number] [place] [address] Oct, [facility] [place] [facility] [address] [id number] [place] [address] Oct, [facility] [place] [facility] [address] [id number] [place] [address] Oct, [facility] [address] [facility] [id number] [place] [address] 17 Oct, 2012 [facility] [place] [facility] [address] [id number] [place] [address] 15 Oct, 2012 [facility] [place] [facility] [address] [id number] [place] [address] 12 Oct, 2012 [facility] [place] [facility] [address] [id number] [place] [address] Oct, [facility] [place] [facility] [address] [facility] [id number] [place] [address] Oct, [facility] [place] [facility] [address] [id number] [place] [address] Oct, [facility] [place] [facility] [address] [id number] [place] [address] Aug, [facility] [place] [facility] [address] [id number] [place] [address] Aug, [facility] [place] [facility] [address] [id number] [place] [address] Aug, [facility] [place] [facility] [address] [id number] [place] [address] 06 Aug, 2012 [facility] [place] [facility] [address] [id number] [place] [address] 05 Aug, 2012 [facility] [place] [facility] [address] [id number] [place] [address] 05 Aug, 2012 [facility] [place] [facility] [address] [id number] [place] [address] 20 Aug, 2012 [facility] [place] [facility] [address] [id number] [place] [address] 14 Aug, 2012 [facility] [place] [facility] [address] [id number] [place] [address] 12 Aug, 2012 [facility] [place] [facility] [address] [id number] [place] [address] Aug, [facility] [place] [facility] [address] [id number] [place] [address] 29 Jul, 2012 [facility] [place] [facility] [address] [id number] [place] [address] 15 Jul, 2012 [facility] [place] [facility] [address] [id number] [place] [address] 08 Jul, 2012 [facility] [place] [facility] [address] [id number] [place] [address] 20 Jun, 2012 [facility] [place] [facility] [address] [id number] [place] [address] 18 Jun, 2012 [facility] [place] [facility] [address] [id number] [place] [address] 18 Jun, 2012 [facility] [place] [facility] [address] [id number] [place] [address] 18 Jun, 2012 [facility] [place] [facility] [address] [id number] [place] [address] 18 Jun, 2012 [facility] [place] [facility] [address] [id number] [place] [address] 14 Jun, 2012 [facility] [place] [facility] [address] [id number] [place] [address] 14 Jun, 2012 [facility] [place] [facility] [address] [id number] [place] [address] 13 Jun, 2012 [facility] [place] [facility] [address] [id number] [place] [address] 13 Jun, 2012 [facility] [place] [facility] [address] [id number] [place] [address] 11 Jun, 2012 [facility] [place] [facility] [address] [id number] [place] [address] 11 Jun, 2012 [facility] [place] [facility] [address] [id number] [place] [address] 11 Jun, 2012 [facility] [place] [facility] [address] [id number] [place] [address] 11 Jun, 2012 [facility] [place] [facility] [address] [id number] [place] [address] 07 Jun, 2012 [facility] [place] [facility] [address] [id number] [place] [address] Jun, [facility] [place] [facility] [address] [id number] [place] [address] Jun, [facility] [place] [facility] [address] [id number] [place] [address] Jun, [facility] [place] [facility] [address] [id number] [place] [address] Jun, [facility] [place] [facility] [address] [id number] [place] [address] Jun, [facility] [place] [facility] [address] [id number] [place] [address] Jun, [facility] [place] [facility] [address] [id number] [place] [address] Jun, [facility] [place] [facility] [address] [id number] [place] [address] Jun, [facility] [place] [facility] [address] [id number] [place] [address] Jun, [facility] [place] [facility] [address] [id number] [place] [address] May, [facility] [place] [facility] [address] [id number] [place] [address] May, [facility] [place] [facility] [address] [id number] [place] [address] May, [facility] [place] [facility] [address] [id number] [place] [address] May, [facility] [place] [facility] [address] [id number] [place] [address] May, [facility] [place] [facility] [address] [id number] [place] [address] May, [facility] [place] [facility] [address] [id number] [place] [address] May, [facility] [place] [facility] [address] [id number] [place] [address] May, [facility] [place] [facility] [address] [facility] [id number] [place] [address] Apr, 2011 [facility] [place] [facility] [address] [id number] [place] [address] Apr, [facility] [place] [facility] [address] [id number] [place] [address] Apr, 2011 [facility] [place] [facility] [address] [id number] [place] [address] Apr, [facility] [place] [facility] [address] [facility] [id number] [place] [address] Apr, [facility] [place] [facility] [address] [id number] [place] [address] Apr, [facility] [place] [facility] [address] [id number] [place] [address] Apr, [facility] [place] [facility] [address] [id number] [place] [address] Apr, [facility] [place] [facility] [address] [id number] [place] [address] 09 Apr, 2012 [facility] [place] [facility] [address] [id number] [place] [address] 08 Apr, 2012 [facility] [place] [facility] [address] [id number] [place] [address] 04 Apr, 2012 [facility] [place] [facility] [address] [id number] [place] [address] 02 Apr, 2012 [facility] [place] [facility] [address] [id number] [place] [address] 19 Mar, 2011 [facility] [place] [facility] [address] [facility] [id number] [place] [address] 18 Sep, 2011 [facility] [place] [facility] [address] [id number] [place] [address] 12 Sep, 2011 [facility] [place] [facility] [address] [id number] [place] [address] 12 Mar, 2011 [facility] [place] [facility] [address] [facility] [id number] [place] [id number] Mar, [facility] [place] [facility] [address] [id number] [place] [id number] Mar, [facility] [place] [facility] [address] [id number] [place] [address] Mar, [facility] [place] [facility] [address] [id number] [place] [address] Jan, [facility] [place] [facility] [address] [id number] [place] [address] Jan, [facility] [place] [facility] [address] [id number] [place] [id number] Jan, [facility] [place] [facility] [address] [id number] [place] [address] , [place] [id number] Jan, [facility] [place] [facility] [address] [id number] [place] [address] Jan, [facility] [place] [facility] [address] [id number] [place] [address] Jan, [facility] [address] [id number] [place] [address] Jan, [facility] [address] [id number] [place] [address] Jan, [facility] [address] [id number] [place] [address] Jan, [facility] [address] [id number] [place] [address] Jan, [facility] [address] [id number] [place] [address] Jan, [facility] [address] [id number] [place] [address] Dec, [facility] [address] [id number] [place] [address] Dec, [facility] [address] [id number] [place] [address] Dec, [facility] [address] [id number] [place] [address] 26 Jan, 2012 [facility] [address] [id number] [place] [address] 20 Jan, 2012 [facility] [address] [id number] [place] [address] 19 Jan, 2012 [facility] [address] [id number] [place] [address] 18 Jan, 2012 [facility] [address] [id number] [place] [address] 17 Jan, 2012 [facility] [address] [facility] [id number] [place] [address] 16 Jan, 2012 [facility] [address] [id number] [place] [address] 13 Jan, 2012 [facility] [address] [id number] [place] [address] Dec, [facility] [address] [id number] [place] [address] Dec, [facility] [address] [id number] [place] [address] Dec, [facility] [address] [id number] [place] [address] Dec, [facility] [address] [id number] [place] [address] Dec, [facility] [address] [id number] [place] [address] Dec, [facility] [address] [id number] [place] [address] 15 Dec, 2011 [facility] [address] [id number] [place] [address] 06 Dec, 2011 [facility] [address] [id number] [place] [address] 05 Dec, 2011 [facility] [address] [id number] [place] [address] October, [facility] [address] [id number] [place] [address] October, [facility] [address] [id number] [place] [address] October, [facility] [address] [id number] [place] [address] October, [facility] [address] [id number] [place] [address] October, [facility] [address] [id number] [place] [address] October, [facility] [address] [id number] [place] [address] Oct, [facility] [address] [id number] [place] [address] Oct, [facility] [address] [id number] [place] [address] Oct, [facility] [address] [id number] [place] [address] Oct, [facility] [address] [id number] [place] [address] Oct, [facility] [address] [id number] [place] [address] Oct, [facility] [address] [id number] [place] [address] Oct, [facility] [address] [id number] [place] [address] Aug, [facility] [address] [id number] [place] [address] Aug, [facility] [address] [id number] [place] [address] Aug, [facility] [address] [id number] [place] [address] Aug, [facility] [address] [id number] [place] [address] Aug, [facility] [address] [id number] [place] [address] Aug, [facility] [address] [id number] [place] [address] Aug, [facility] [address] [id number] [place] [address] Aug, [facility] [address] [id number] [place] [address] Aug, [facility] [address] [id number] [place] [address] Jul, [facility] [address] [id number] [place] [address] Jul, [facility] [address] [id number] [place] [address] Jul, [facility] [id number] [place] [address] Jul, [facility] [address] [id number] [place] [address] Jun, [facility] [id number] [place] [address] Jun, [facility] [address] [id number] [place] [address] May, [facility] [id number] [place] [address] May, [facility] [address] [id number] [place] [address] May, [facility] [id number] [place] [address] May, [facility] [address] [id number] [place] [address] May, [facility] [address] [id number] [place] [address] Apr, [facility] [address] [id number] [place] [address] 28 Apr, 2011 [facility] [facility] [address] [id number] [place] [address] Apr[facility] [address] [id number] [place] [address] Jan, [facility] [address] [id number] [place] [address] Dec, [facility] [id number] [place] [address] October, [facility] [id number] [place] [address] Jun, [facility] [id number] [place] [address] Apr, [facility] [address] [id number] [place] [address] Apr, [facility] [address] [id number] [place] [address] Apr, [facility] [address] [id number] [place] [address] Jun, IMMUNIZATIONS No Known Immunizations SOCIAL HISTORY [...]
--- OUTSIDE RECORDS SUMMARY | 2020-01-25 12:27 | XMS REPORT ---
Author Author Ana Iraheta Organization [facility] Address [address] [place] [address] Care Team Providers Care Bulk Receiver Name Role Phone MELISA Iraheta Unavailable PROBLEMS Type Condition ICD9-CM Code NMR32-ZD Code Onset Dates Condition S tatus SNOMED Code Problem Chronic hepatitis C without hepatic coma B18.2 Active 041253975 Problem Cannabis abuse F12.10 Active 55536 009 Problem Bipolar 1 disorder F31.9 Active 3 60571362 Problem Attention deficit hyperactivity disorder (ADHD), combi luciano type F90.2 Active 15339062 Problem Attention deficit R41.840 Active 76 384430 Problem Hot flashes due to menopause N95.1 A ctive 488693125 Problem H/O laminectomy Z98.89 Active 1616 65904 Problem Other chronic pain G89.29 Active 8 9982404 Problem Anxiety disorder, unspecified type F41.9 Active 778257993 Problem Bipolar disorder, in partial remission, most rec ent episode hypomanic F31.71 Active 861151096 ALLERGIES No Information ENCOUNTERS Encounter Location Date Diagnosis [facility] [id number] [place] [address] Aug, [facility] [address] [address] Jul, [facility] [address] [address] Jul, [place] [address] [address] Apr, [place] [address] [address] Mar, Hot flashes due to menopause N95.1 ; Anx iety disorder, unspecified type F41.9 ; Low back pain M54.5 and Encounter for immunization Z23 [facility] [address] [address] Dec, Other chronic pain G89.29 and Low back p ain M54.5 [facility] [address] [address] October, [facility] [address] [address] October, [facility] [address] [address] October, [facility] [address] [address] October, Other chronic pain G89.29 and Chronic he patitis C without hepatic coma B18.2 [facility] [address] [address] Aug, Bipolar disorder, in partial remission, most recent episode hypomanic F31.71 ; Attention deficit hyperactivity disorder (ADHD), combined type F90.2 and Anxiety disorder, unspecified type F41.9 [facility] [address] [address] Aug, [place] [address] [address] Aug, Bipolar disorder, in partial remission, most recent episode hypomanic F31.71 [facility] [address] [address] Aug, [facility] [address] [address] Aug, Bipolar disorder, in partial remission, most recent episode hypomanic F31.71 [place] [address] [address] Aug, Bipolar disorder, in partial remission, most recent episode hypomanic F31.71 ; Attention deficit hyperactivity disorder (ADHD), combined type F90.2 and Anxiety disorder, unspecified type F41.9 [facility] [id number] [place] [address] Aug, Low back pain M54.5 and Pain in left wri st M25.532 [facility] [address] [id number] [place] [address] Aug, [facility] [address] [id number] [place] [address] Jun, [facility] [id number] [place] [address] Apr, Bipolar disorder, in partial remission, most recent episode hypomanic F31.71 [facility] [id number] [place] [address] Apr, [facility] [id number] [place] [address] Apr, Bipolar disorder, in partial remission, most recent episode hypomanic F31.71 ; Attention deficit hyperactivity disorder (ADHD), combined type F90.2 ; Anxiety disorder, unspecified type F41.9 and Other residential (current) 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 Z79.899 [facility] [id number] [place] [address] Apr, Bipolar disorder, in partial remission, most recent episode hypomanic F31.71 [facility] [address] [id number] [place] [address] Apr, Bipolar disorder, in partial remission, most recent episode hypomanic F31.71 [facility] [id number] [place] [address] Mar, [facility] [id number] [place] [address] Mar, Bipolar disorder, in partial remission, most recent episode hypomanic F31.71 ; Encounter for immunization Z23 and Low back pain M54.5 [facility] [address] [id number] [place] [address] Mar, Bipolar disorder, in partial remission, most recent episode hypomanic F31.71 [facility] [id number] [place] [address] Mar, Bipolar disorder, in partial remission, most recent episode hypomanic F31.71 [facility] [address] [id number] [place] [address] Jan, Bipolar disorder, in partial remission, most recent episode hypomanic F31.71 [facility] [address] [id number] [place] [address] Jan, Bipolar disorder, in partial remission, most recent episode hypomanic F31.71 [facility] [id number] [place] [address] Dec, Bipolar disorder, in partial remission, most recent episode hypomanic F31.71 [facility] [id number] [place] [address] Dec, Bipolar disorder, in partial remission, most recent episode hypomanic F31.71 ; Attention deficit hyperactivity disorder (ADHD), combined type F90.2 ; Anxiety disorder, unspecified type F41.9 and Other residential (current) 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 Z79.899 [facility] [id number] [place] [address] Dec, Bipolar disorder, in partial remission, most recent episode hypomanic F31.71 [facility] [address] [id number] [place] [address] Dec, Bipolar disorder, in partial remission, most recent episode hypomanic F31.71 [facility] [id number] [place] [address] October, Bipolar disorder, in partial remission, most recent episode hypomanic F31.71 [facility] [address] [id number] [place] [address] October, [facility] [address] [id number] [place] [address] October, [facility] [address] [id number] [place] [address] Oct, Bipolar disorder, in partial remission, most recent episode hypomanic F31.71 ; Attention deficit hyperactivity disorder (ADHD), combined type F90.2 ; Anxiety disorder, unspecified type F41.9 and Encounter for drug screening Z02.83 [facility] [id number] [place] [address] Oct, Bipolar disorder, in partial remission, most recent episode hypomanic F31.71 [facility] [id number] [place] [address] Oct, Bipolar disorder, in partial remission, most recent episode hypomanic F31.71 [facility] [id number] [place] [address] Aug, Bipolar disorder, in partial remission, most recent episode hypomanic F31.71 [facility] [id number] [place] [address] Aug, Bipolar disorder, in partial remission, most recent episode hypomanic F31.71 [facility] [id number] [place] [address] Aug, Bipolar disorder, in partial remission, most recent episode hypomanic F31.71 [facility] [id number] [place] [address] Jul, Bipolar disorder, in partial remission, most recent episode hypomanic F31.71 ; Attention deficit hyperactivity disorder (ADHD), combined type F90.2 and Anxiety disorder, unspecified type F41.9 [facility] [id number] [place] [address] Jul, Bipolar disorder, in partial remission, most recent episode hypomanic F31.71 [facility] [id number] [place] [address] Jun, Bipolar disorder, in partial remission, most recent episode hypomanic F31.71 [facility] [id number] [place] [address] May, Bipolar disorder, in partial remission, most recent episode hypomanic F31.71 [facility] [id number] [place] [address] May, Bipolar disorder, in partial remission, most recent episode hypomanic F31.71 [facility] [address] [address] Apr, [facility] [address] [address] Apr, Bipolar disorder, in partial remission, most recent episode hypomanic F31.71 ; Attention deficit hyperactivity disorder (ADHD), combined type F90.2 ; Anxiety disorder, unspecified type F41.9 and Cannabis abuse F12.10 [facility] [address] [address] Apr, Attention deficit hyperactivity disorder (ADHD), combined type F90.2 [place] [address] [address] Mar, Attention deficit hyperactivity disorder (ADHD), combined type F90.2 [place] [address] [address] Mar, Anxiety disorder, unspecified type F41.9 [facility] [address] [address] Jan, Attention deficit hyperactivity disorder (ADHD), combined type F90.2 [facility] [address] [address] Jan, Anxiety disorder, unspecified type F41.9 [place] [address] [address] Jan, Other chronic pain G89.29 ; Chronic hepa titis C without hepatic coma B18.2 and Bipolar 1 disorder F31.9 [facility] [address] [address] Dec, Attention deficit hyperactivity disorder (ADHD), combined type F90.2 [facility] [address] [address] Dec, Bipolar disorder, in partial remission, most recent episode hypomanic F31.71 ; Attention deficit hyperactivity disorder (ADHD), combined type F90.2 and Anxiety disorder, unspecified type F41.9 [place] [address] [address] Dec, Bipolar disorder, in partial remission, most recent episode hypomanic F31.71 ; Attention deficit hyperactivity disorder (ADHD), combined type F90.2 and Anxiety disorder, unspecified type F41.9 [place] [address] [address] Dec, Bipolar 1 disorder F31.9 and Attention d eficit R41.840 [place] [address] [address] Oct, Other chronic pain G89.29 ; Alopecia L65 .9 and Screening, lipid Z13.220 [place] [address] [address] Oct, [place] [address] [address] Aug, [place] [address] [address] Aug, Eustachian tube dysfunction, right H69.8 1 ; Vertigo R42 and Other chronic pain G89.29 [place] [address] [address] Aug, [place] [address] [address] Jun, [place] [address] [address] Jun, Low back pain M54.5 and Other chronic pa in G89.29 [place] [address] [address] Jun, [place] [address] [address] May, [place] [address] [address] Jan, [facility] [address] [address] Dec, [facility] [address] [address] Dec, [facility] [address] [address] Jun, [facility] [address] [address] Apr, Eustachian tube dysfunction, unspecified laterality H69.80 ; Hot flashes N95.1 and Encounter for immunization Z23 [facility] [address] [address] Jan, [facility] [address] [address] Jan, [facility] [address] [address] Jan, [facility] [address] [address] Jan, [facility] [address] [address] Jan, Encounter to establish care V65.8 ; Bipo lar 1 disorder 296.7 ; Abdominal pain 789.00 ; Constipation 564.00 ; Hard of hearing 389.9 and Drug abuse 305.90 [facility] [address] [address] Dec, [facility] [address] [address] October, [facility] [address] [address] October, [facility] [address] [address] Oct, [facility] [address] [address] Oct, [facility] [place] [facility] [address] [id number] [place] [address] Oct, [facility] [place] [facility] [address] [id number] [place] [address] Aug, [facility] [place] [facility] [address] [id number] [place] [address] Aug, [facility] [place] [facility] [address] [id number] [place] [address] Aug, [facility] [place] [facility] [address] [id number] [place] [address] Aug, 2014 [facility] [place] [facility] [address] [id number] [place] [address] Aug, 2014 [facility] [place] [facility] [address] [id number] [place] [address] Aug, 2014 [facility] [place] [facility] [address] [id number] [place] [address] Aug, 2014 [facility] [place] [facility] [address] [id number] [place] [address] Aug, 2014 [facility] [place] [facility] [address] [id number] [place] [address] Aug, 2014 [facility] [place] [facility] [address] [id number] [place] [address] Aug, 2014 [facility] [place] [facility] [address] [id number] [place] [address] Aug, 2014 [facility] [place] [facility] [address] [id number] [place] [address] Aug, 2014 [facility] [place] [facility] [address] [id number] [place] [address] Aug, 2014 [facility] [place] [facility] [address] [id number] [place] [address] Aug, 2014 [facility] [place] [facility] [address] [id number] [place] [address] Aug, 2014 [facility] [place] [facility] [address] [id number] [place] [address] Jul, [facility] [place] [facility] [address] [id number] [place] [address] Jul, [facility] [place] [facility] [address] [id number] [place] [address] Jul, [facility] [place] [facility] [address] [id number] [place] [address] Jul, [facility] [place] [facility] [address] [id number] [place] [address] Jul, [facility] [place] [facility] [address] [id number] [place] [address] Jul, [facility] [place] [facility] [address] [id number] [place] [address] Jul, [facility] [place] [facility] [address] [id number] [place] [address] Jul, [facility] [place] [facility] [address] [id number] [place] [address] Jun, [facility] [place] [facility] [address] [id number] [place] [address] Jun, [facility] [place] [facility] [address] [id number] [place] [address] Jun, [facility] [place] [facility] [address] [id number] [place] [address] 29 Jun, 2014 [facility] [place] [facility] [address] [id number] [place] [address] 18 Jun, 2014 [facility] [place] [facility] [address] [id number] [place] [address] 15 Jun, 2014 [facility] [place] [facility] [address] [id number] [place] [address] 15 Jun, 2014 [facility] [place] [facility] [address] [id number] [place] [address] Jun, [facility] [place] [facility] [address] [id number] [place] [address] Jun, [facility] [place] [facility] [address] [id number] [place] [address] Jun, [facility] [place] [facility] [address] [id number] [place] [address] Jun, [facility] [place] [facility] [address] [id number] [place] [address] May, [facility] [place] [facility] [address] [id number] [place] [address] May, [facility] [place] [facility] [address] [id number] [place] [address] May, [facility] [place] [facility] [address] [id number] [place] [address] May, [facility] [place] [facility] [address] [id number] [place] [address] May, [facility] [place] [facility] [id number] [place] [address] May, [facility] [place] [facility] [address] [id number] [place] [address] May, [facility] [place] [facility] [address] [id number] [place] [address] Apr, [facility] [place] [facility] [address] [id number] [place] [address] Apr, [facility] [place] [facility] [id number] [place] [address] Apr, [facility] [place] [facility] [address] [id number] [place] [address] Apr, [facility] [place] [facility] [address] [id number] [place] [address] Apr, [facility] [place] [facility] [id number] [place] [address] Apr, [facility] [place] [facility] [address] [id number] [place] [address] Mar, [facility] [place] [facility] [address] [id number] [place] [address] Mar, 2013 [facility] [place] [facility] [address] [facility] [id number] [facility] [place] [address] Mar, [facility] [place] [facility] [address] [facility] [id number] [facility] [place] [address] Mar, [facility] [place] [facility] [address] [id number] [place] [address] Mar, [facility] [place] [facility] [address] [id number] [place] [address] Mar, [facility] [place] [facility] [address] [facility] [id number] [place] [address] Jan, [facility] [place] [facility] [address] [id number] [place] [address] Jan, [facility] [place] [facility] [address] [id number] [place] [address] Jan, [facility] [place] [facility] [address] [id number] [place] [address] Jan, [facility] [place] [facility] [address] [id number] [place] [address] Dec, [facility] [place] [facility] [address] [id number] [place] [address] Dec, [facility] [place] [facility] [address] [id number] [place] [address] Dec, [facility] [place] [facility] [address] [id number] [place] [address] Dec, [facility] [place] [facility] [address] [id number] [place] [address] Dec, [facility] [place] [facility] [address] [id number] [place] [address] Dec, [facility] [place] [facility] [address] [id number] [place] [address] Dec, [facility] [place] [facility] [address] [id number] [place] [address] Dec, [facility] [place] [facility] [address] [id number] [place] [address] Dec, [facility] [place] [facility] [address] [id number] [place] [address] Dec, [facility] [place] [facility] [address] [id number] [place] [address] Dec, [facility] [place] [facility] [address] [id number] [place] [address] Dec, [facility] [place] [facility] [address] [id number] [place] [address] October, [facility] [place] [facility] [address] [id number] [place] [address] October, [facility] [place] [facility] [address] [id number] [place] [address] October, [facility] [place] [facility] [address] [id number] [place] [address] October, [facility] [place] [facility] [address] [id number] [place] [address] October, [facility] [place] [facility] [address] [id number] [place] [address] October, [facility] [place] [facility] [address] [id number] [place] [address] Oct, [facility] [place] [facility] [address] [id number] [place] [address] Oct, [facility] [place] [facility] [address] [id number] [place] [address] Oct, [facility] [place] [facility] [address] [id number] [place] [address] Oct, [facility] [place] [facility] [address] [id number] [place] [address] Oct, [facility] [place] [facility] [address] [id number] [place] [address] Oct, [facility] [place] [facility] [address] [id number] [place] [address] Oct, [facility] [place] [facility] [address] [id number] [place] [address] Oct, [facility] [place] [facility] [address] [id number] [place] [address] Oct, [facility] [place] [facility] [address] [id number] [place] [address] Oct, [facility] [place] [facility] [address] [id number] [place] [address] Oct, [facility] [address] [id number] [place] [address] Oct, [facility] [address] [id number] [place] [address] Aug, [facility] [address] [id number] [place] [address] Aug, [facility] [address] [id number] [place] [address] Aug, [facility] [address] [id number] [place] [address] Aug, [facility] [address] [id number] [place] [address] Aug, [facility] [address] [id number] [place] [address] Aug, [facility] [address] [id number] [place] [address] Aug, [facility] [address] [id number] [place] [address] Aug, [facility] [address] [id number] [place] [address] Aug, [facility] [address] [id number] [place] [address] Aug, [facility] [address] [id number] [place] [address] Aug, [facility] [address] [id number] [place] [address] Aug, [facility] [address] [id number] [place] [address] Aug, [facility] [address] [id number] [place] [address] 20 Aug, 2013 [facility] [address] [id number] [place] [address] Aug, [facility] [address] [id number] [place] [address] Aug, [facility] [address] [id number] [place] [address] Aug, [facility] [address] [id number] [place] [address] Aug, [facility] [address] [id number] [place] [address] Aug, [facility] [address] [id number] [place] [address] 07 Aug, 2013 [facility] [address] [id number] [place] [address] Aug, [facility] [address] [id number] [place] [address] Aug, [facility] [address] [id number] [place] [address] Aug, [facility] [address] [id number] [place] [address] Aug, [facility] [address] [id number] [place] [address] Aug, [facility] [address] [id number] [place] [address] Jul, [facility] [address] [id number] [place] [address] Jul, [facility] [facility] [address] [id number] [place] [address] Jul, [facility] [address] [id number] [place] [address] Jul, [facility] [address] [id number] [place] [address] Jul, [facility] [address] [id number] [place] [address] Jul, [facility] [address] [id number] [place] [address] Jul, [facility] [address] [facility] [id number] [place] [address] Jul, [facility] [address] [id number] [place] [address] Jul, [facility] [address] [id number] [place] [address] Jul, [facility] [address] [id number] [place] [address] Jul, [facility] [address] [id number] [place] [address] Jul, [facility] [address] [id number] [place] [address] Jul, [facility] [address] [id number] [place] [address] Jul, [facility] [address] [id number] [place] [address] Jul, [facility] [address] [id number] [place] [address] Jul, [facility] [address] [id number] [place] [address] Jul, [facility] [address] [id number] [place] [address] Jul, [facility] [address] [id number] [place] [address] Jul, [facility] [address] [id number] [place] [address] Jul, [facility] [address] [facility] [id number] [place] [address] Jun, [facility] [address] [id number] [place] [address] Jun, [facility] [address] [id number] [place] [address] Jun, [facility] [address] [id number] [place] [address] Jun, [facility] [address] [id number] [place] [address] Jun, [facility] [address] [id number] [place] [address] Jun, [facility] [address] [id number] [place] [address] Jun, [facility] [address] [id number] [place] [address] Jun, [facility] [address] [id number] [place] [address] Jun, [facility] [address] [id number] [place] [address] Jun, [facility] [address] [id number] [place] [address] Jun, [facility] [address] [id number] [place] [address] Jun, [facility] [address] [id number] [place] [address] Jun, [facility] [address] [id number] [place] [address] Jun, [facility] [address] [id number] [place] [address] Jun, [facility] [address] [id number] [place] [address] Jun, [facility] [address] [id number] [place] [address] 18 Jun, 2013 [facility] [address] [id number] [place] [address] 17 Jun, 2013 [facility] [address] [id number] [place] [address] 17 Jun, 2013 [facility] [address] [id number] [place] [address] 13 Jun, 2013 [facility] [address] [id number] [place] [address] 12 Jun, 2013 [facility] [address] [id number] [place] [address] 12 Jun, 2013 [facility] [address] [id number] [place] [address] Jun, [facility] [address] [id number] [place] [address] 05 Jun, 2013 [facility] [address] [id number] [place] [address] 05 Jun, 2013 [facility] [address] [id number] [place] [address] Jun, [facility] [address] [id number] [place] [address] Jun, [facility] [address] [id number] [place] [address] May, [facility] [address] [id number] [place] [address] May, [facility] [address] [id number] [place] [address] May, [facility] [id number] [place] [address] May, [facility] [address] [id number] [place] [address] May, [facility] [address] [id number] [place] [address] 05 May, 2013 [facility] [address] [id number] [place] [address] 30 Apr, 2012 [facility] [address] [id number] [place] [address] Apr, 2012 [facility] [address] [id number] [place] [address] Apr, 2012 [facility] [address] [id number] [place] [address] Apr, 2012 [facility] [address] [id number] [place] [address] Apr, 2012 [facility] [address] [id number] [place] [address] Apr, 2012 [facility] [address] [id number] [place] [address] 15 Apr, 2013 [facility] [address] [id number] [place] [address] Apr, 2012 [facility] [address] [id number] [place] [address] 26 Sep, 2012 [facility] [address] [id number] [place] [address] 24 Sep, 2012 [facility] [address] [id number] [place] [address] 17 Sep, 2012 [facility] [address] [id number] [place] [address] 17 Sep, 2012 [facility] [address] [id number] [place] [address] 11 Sep, 2012 [facility] [address] [id number] [place] [address] 10 Sep, 2012 [facility] [address] [id number] [place] [address] 05 Sep, 2012 [facility] [address] [id number] [place] [address] 04 Sep, 2012 [facility] [address] [id number] [facility] [address] Jan, [facility] [address] [id number] [place] [address] Jan, [facility] [address] [facility] [id number] [facility] [place] [address] 14 Jan, 2013 [facility] [address] [id number] [facility] [address] Jan, [facility] [address] [facility] [id number] [place] [address] Jan, [facility] [address] [facility] [id number] [place] [address] Jan, [facility] [address] [facility] [id number] [place] [address] 31 Dec, 2012 [facility] [address] [id number] [facility] [place] [address] 24 Dec, 2012 [facility] [address] [id number] [facility] [address] Dec, [facility] [address] [facility] [id number] [facility] [address] Dec, [facility] [address] [id number] [facility] [address] 18 Dec, 2012 [facility] [address] [id number] [facility] [address] 17 Dec, 2012 [facility] [address] [id number] [facility] [address] 16 Dec, 2012 [facility] [address] [facility] [id number] [place] [address] 16 Dec, 2012 [facility] [address] [id number] [facility] [address] 15 Dec, 2012 [facility] [address] [facility] [id number] [facility] [address] 10 Dec, 2012 [facility] [address] [id number] [facility] [address] Dec, [facility] [address] [id number] [place] [address] Dec, [facility] [address] [id number] [place] [address] Dec, [facility] [address] [id number] [place] [address] Dec, [facility] [address] [id number] [place] [address] Dec, [facility] [address] [id number] [place] [address] Dec, [facility] [address] [id number] [place] [address] October, [facility] [address] [id number] [place] [address] October, [facility] [address] [id number] [place] [address] October, [facility] [address] [id number] [place] [address] October, [facility] [address] [id number] [place] [address] October, [facility] [address] [id number] [place] [address] October, [facility] [address] [id number] [place] [address] October, [facility] [address] [id number] [place] [address] Oct, [facility] [address] [id number] [place] [address] Oct, [facility] [address] [id number] [place] [address] 24 Oct, 2012 [facility] [address] [id number] [place] [address] Oct, [facility] [address] [id number] [place] [address] Oct, [facility] [address] [id number] [place] [address] 18 Oct, 2012 [facility] [address] [id number] [place] [address] 17 Oct, 2012 [facility] [address] [id number] [place] [address] 15 Oct, 2012 [facility] [address] [id number] [place] [address] 12 Oct, 2012 [facility] [address] [facility] [id number] [place] [address] Oct, [facility] [address] [id number] [place] [address] Oct, [facility] [address] [id number] [place] [address] Oct, [facility] [address] [id number] [place] [address] Aug, [facility] [address] [id number] [place] [address] Aug, [facility] [address] [id number] [place] [address] Aug, [facility] [address] [id number] [place] [address] 06 Aug, 2012 [facility] [address] [id number] [place] [address] 05 Aug, 2012 [facility] [address] [id number] [place] [address] 05 Aug, 2012 [facility] [address] [id number] [place] [address] 20 Aug, 2012 [facility] [address] [id number] [place] [address] 14 Aug, 2012 [facility] [address] [id number] [place] [address] 12 Aug, 2012 [facility] [address] [id number] [place] [address] 11 Aug, 2012 [facility] [address] [id number] [place] [address] Jul, [facility] [address] [id number] [place] [address] 15 Jul, 2012 [facility] [address] [id number] [place] [address] 08 Jul, 2012 [facility] [address] [id number] [place] [address] 20 Jun, 2012 [facility] [address] [id number] [place] [address] 18 Jun, 2012 [facility] [address] [id number] [place] [address] 18 Jun, 2012 [facility] [address] [id number] [place] [address] 18 Jun, 2012 [facility] [address] [id number] [place] [address] 18 Jun, 2012 [facility] [address] [id number] [place] [address] 14 Jun, 2012 [facility] [address] [id number] [place] [address] 14 Jun, 2012 [facility] [address] [id number] [place] [address] 13 Jun, 2012 [facility] [address] [id number] [place] [address] 13 Jun, 2012 [facility] [address] [id number] [place] [address] 11 Jun, 2012 [facility] [address] [id number] [place] [address] 11 Jun, 2012 [facility] [address] [id number] [place] [address] 11 Jun, 2012 [facility] [address] [id number] [place] [address] 11 Jun, 2012 [facility] [address] [id number] [place] [address] Jun, [facility] [address] [id number] [place] [address] Jun, [facility] [address] [id number] [place] [address] Jun, [facility] [address] [id number] [place] [address] Jun, [facility] [address] [id number] [place] [address] Jun, [facility] [address] [id number] [place] [address] Jun, [facility] [address] [id number] [place] [address] Jun, [facility] [address] [id number] [place] [address] Jun, [facility] [address] [id number] [place] [address] Jun, [facility] [address] [id number] [place] [address] Jun, [facility] [address] [id number] [place] [address] May, [facility] [address] [id number] [place] [address] May, [facility] [address] [id number] [place] [address] May, [facility] [address] [id number] [place] [address] May, [facility] [facility] [address] [id number] [place] [address] May, [facility] [address] [id number] [place] [address] May, [facility] [place] [facility] [address] [id number] [place] [address] May, [facility] [place] [facility] [address] [id number] [place] [address] May, 2011 [facility] [place] [facility] [address] [id number] [place] [address] Apr, [facility] [place] [facility] [address] [id number] [place] [address] Apr, [facility] [place] [facility] [address] [id number] [place] [address] Apr, [facility] [place] [facility] [address] [id number] [place] [address] Apr, [facility] [place] [facility] [address] [id number] [place] [address] Apr, [facility] [place] [facility] [address] [id number] [place] [address] Apr, [facility] [place] [facility] [address] [id number] [place] [address] Apr, [facility] [place] [facility] [address] [id number] [place] [address] Apr, [facility] [place] [facility] [address] [id number] [place] [address] Apr, [facility] [place] [facility] [address] [id number] [place] [address] 08 Apr, 2012 [facility] [place] [facility] [address] [id number] [place] [address] 04 Apr, 2012 [facility] [facility] [address] [id number] [place] [address] 02 Apr, 2012 [facility] [facility] [address] [id number] [place] [address] 19 Sep, 2011 [facility] [facility] [address] [id number] [place] [address] 18 Sep, 2011 [facility] [facility] [address] [id number] [place] [address] 12 Mar, 2011 [facility] [place] [facility] [address] [id number] [place] [address] Mar, [facility] [address] [id number] [place] [id number] Mar, [facility] [address] [id number] [place] [id number] Mar, [facility] [place] [facility] [address] [id number] [place] [address] Mar, [facility] [place] [facility] [address] [id number] [place] [address] Jan, [facility] [place] [facility] [address] [id number] [place] [address] Jan, [facility] [address] [id number] [place] [id number] Jan, [facility] [facility] [address] [id number] [place] [id number] Jan, [facility] [place] [facility] [address] [id number] [place] [address] Jan, [facility] [place] [facility] [address] [id number] [place] [address] Jan, [facility] [address] [id number] [place] [address] Jan, [facility] [address] [id number] [place] [address] Jan, [facility] [address] [id number] [place] [address] Jan, [facility] [address] [id number] [place] [address] Jan, [facility] [address] [id number] [place] [address] Jan, [facility] [address] [id number] [place] [address] Dec, [facility] [address] [id number] [place] [address] Dec, [facility] [address] [id number] [place] [address] 26 Dec, 2011 [facility] [address] [id number] [place] [address] 26 Jan, 2012 [facility] [address] [id number] [place] [address] 20 Jan, 2012 [facility] [address] [id number] [place] [address] 19 Jan, 2012 [facility] [address] [id number] [place] [address] 18 Dec, 2011 [facility] [address] [facility] [id number] [place] [address] 17 Jan, 2012 [facility] [address] [id number] [place] [address] 16 Jan, 2012 [facility] [address] [id number] [place] [address] 13 Jan, 2012 [facility] [address] [id number] [place] [address] 13 Jan, 2012 [facility] [address] [id number] [place] [address] Dec, [facility] [address] [id number] [place] [address] Dec, [facility] [address] [id number] [place] [address] 27 Dec, 2011 [facility] [address] [id number] [place] [address] 25 Dec, 2011 [facility] [address] [id number] [place] [address] 18 Dec, 2011 [facility] [address] [id number] [place] [address] 15 Dec, 2011 [facility] [address] [id number] [place] [address] 06 Dec, 2011 [facility] [address] [id number] [place] [address] Dec, [facility] [address] [id number] [place] [address] October, [facility] [address] [id number] [place] [address] October, [facility] [address] [id number] [place] [address] October, [facility] [address] [id number] [place] [address] October, [facility] [address] [id number] [place] [address] October, [facility] [address] [id number] [place] [address] October, [facility] [address] [id number] [place] [address] Oct, [facility] [address] [id number] [place] [address] Oct, [facility] [address] [id number] [place] [address] Oct, [facility] [address] [id number] [place] [address] Oct, [facility] [address] [id number] [place] [address] Oct, [facility] [address] [id number] [place] [address] Oct, [facility] [address] [id number] [place] [address] Oct, [facility] [address] [id number] [place] [address] Aug, [facility] [address] [id number] [place] [address] Aug, [facility] [address] [id number] [place] [address] Aug, [facility] [address] [id number] [place] [address] 13 Sep, 2011 [facility] [address] [id number] [facility] [place] [address] Aug, [facility] [address] [id number] [facility] [place] [address] 05 Sep, 2011 [facility] [address] [id number] [facility] [address] 27 Aug, 2011 [facility] [address] [id number] [facility] [address] Aug, [facility] [address] [id number] [facility] [place] [address] 08 Aug, 2011 [facility] [address] [id number] [place] [address] Jul, [facility] [address] [id number] [place] [address] Jul, [facility] [address] [id number] [place] [address] Jul, [facility] [address] [id number] [place] [address] Jul, [facility] [address] [id number] [place] [address] Jun, [facility] [address] [id number] [place] [address] Jun, [facility] [address] [id number] [place] [address] May, [facility] [address] [id number] [place] [address] May, [facility] [address] [id number] [place] [address] May, [facility] [address] [id number] [place] [address] May, [facility] [address] [id number] [place] [address] May, [facility] [address] [id number] [place] [address] Apr, [facility] [address] [id number] [place] [address] Apr, [facility] [address] [id number] [place] [address] Apr, [facility] [address] [id number] [place] [address] Jan, [facility] [id number] [place] [address] Dec, [facility] [id number] [place] [address] October, [facility] [id number] [place] [address] Jun, [facility] [id number] [place] [address] Apr, [facility] [id number] [place] [address] Apr, [facility] [address] [id number] [place] [address] Apr, [facility] [address] [id number] [place] [address] Jun, IMMUNIZATIONS No Known Immunizations SOCIAL HISTORY [...]
--- OUTSIDE RECORDS SUMMARY | 2020-01-25 12:27 | XMS REPORT ---
Author Author Quang Mayereen Doctor Organization [facility] Address Unknown Phone Unavailable Care Team Providers Care Instrument Mechanic Name Role Phone Migration, Doctor Unavailable Unavailable PROBLEMS Type Condition ICD9-CM Code [id number] Code Onset Dates Condition S tatus SNOMED Code Problem Chronic hepatitis C without hepatic coma B18.2 Active 619285786 Problem Cannabis abuse F12.10 Active 96961 009 Problem Bipolar 1 disorder F31.9 Active 3 71466636 Problem Attention deficit hyperactivity disorder (ADHD), combi luciano type F90.2 Active 49296793 Problem Attention deficit R41.840 Active 76 929211 Problem Hot flashes due to menopause N95.1 A ctive 214147256 Problem H/O laminectomy Z98.89 Active 1616 79433 Problem Other chronic pain G89.29 Active 8 6569696 Problem Anxiety disorder, unspecified type F41.9 Active 492786095 Problem Bipolar disorder, in partial remission, most rec ent episode hypomanic F31.71 Active 522598029 ALLERGIES No Information ENCOUNTERS Encounter Location Date Diagnosis [place] [address] [address] Aug, [facility] [address] [address] Jul, [place] [address] [address] Jul, [facility] [address] [address] Apr, [place] [address] [address] Mar, Hot flashes due to menopause N95.1 ; Anx iety disorder, unspecified type F41.9 ; Low back pain M54.5 and Encounter for immunization Z23 [place] [address] [address] Dec, Other chronic pain G89.29 and Low back p ain M54.5 [facility] [address] [address] October, [facility] [address] [address] October, [facility] [address] [address] October, [facility] [address] [address] October, Other chronic pain G89.29 and Chronic he patitis C without hepatic coma B18.2 [facility] [address] [address] Aug, Bipolar disorder, in partial remission, most recent episode hypomanic F31.71 ; Attention deficit hyperactivity disorder (ADHD), combined type F90.2 and Anxiety disorder, unspecified type F41.9 [facility] [address] [address] Aug, [facility] [address] [address] Aug, Bipolar disorder, in partial remission, most recent episode hypomanic F31.71 [facility] [address] [address] 14 Aug, 2018 [facility] [address] [address] Aug, Bipolar disorder, in partial remission, most recent episode hypomanic F31.71 [facility] [address] [address] Aug, Bipolar disorder, in partial remission, most recent episode hypomanic F31.71 ; Attention deficit hyperactivity disorder (ADHD), combined type F90.2 and Anxiety disorder, unspecified type F41.9 [facility] [address] [address] Aug, Low back pain M54.5 and Pain in left wri st M25.532 [facility] [address] [address] Aug, [facility] [address] [address] Jun, [facility] [address] [address] Apr, Bipolar disorder, in partial remission, most recent episode hypomanic F31.71 [facility] [address] [address] Apr, [place] [address] [address] Apr, Bipolar disorder, in partial remission, most recent episode hypomanic F31.71 ; Attention deficit hyperactivity disorder (ADHD), combined type F90.2 ; Anxiety disorder, unspecified type F41.9 and 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 [place] [address] [address] Apr, Bipolar disorder, in partial remission, most recent episode hypomanic F31.71 [place] [address] [address] Apr, Bipolar disorder, in partial remission, most recent episode hypomanic F31.71 [place] [address] [address] Mar, [place] [address] [address] Mar, Bipolar disorder, in partial remission, most recent episode hypomanic F31.71 ; Encounter for immunization Z23 and Low back pain M54.5 [facility] [address] [address] 17 Mar, 2018 Bipolar disorder, in partial remission, most recent episode hypomanic F31.71 [facility] [address] [address] Mar, Bipolar disorder, in partial remission, most recent episode hypomanic F31.71 [facility] [address] [id number] [place] [address] Jan, Bipolar disorder, in partial remission, most recent episode hypomanic F31.71 [facility] [address] [id number] [place] [address] Jan, Bipolar disorder, in partial remission, most recent episode hypomanic F31.71 [facility] [address] [id number] [place] [address] Dec, Bipolar disorder, in partial remission, most recent episode hypomanic F31.71 [facility] [address] [id number] [place] [address] Dec, Bipolar disorder, in partial remission, most recent episode hypomanic F31.71 ; Attention deficit hyperactivity disorder (ADHD), combined type F90.2 ; Anxiety disorder, unspecified type F41.9 and Other senior living (current) 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 Z79.899 [facility] [address] [place] [id number] [place] [address] Dec, Bipolar disorder, in partial remission, most recent episode hypomanic F31.71 [facility] [address] [id number] [place] [address] Dec, Bipolar disorder, in partial remission, most recent episode hypomanic F31.71 [facility] [address] [id number] [place] [address] October, Bipolar disorder, in partial remission, most recent episode hypomanic F31.71 [facility] [address] [id number] [place] [address] October, [facility] [address] [id number] [place] [address] October, [facility] [address] [id number] [place] [address] Oct, Bipolar disorder, in partial remission, most recent episode hypomanic F31.71 ; Attention deficit hyperactivity disorder (ADHD), combined type F90.2 ; Anxiety disorder, unspecified type F41.9 and Encounter for drug screening Z02.83 [facility] [address] [place] [id number] [place] [address] Oct, Bipolar disorder, in partial remission, most recent episode hypomanic F31.71 [facility] [address] [place] [id number] [place] [address] Oct, Bipolar disorder, in partial remission, most recent episode hypomanic F31.71 [facility] [address] [address] Aug, Bipolar disorder, in partial remission, most recent episode hypomanic F31.71 [facility] [address] [address] Aug, Bipolar disorder, in partial remission, most recent episode hypomanic F31.71 [facility] [address] [address] Aug, Bipolar disorder, in partial remission, most recent episode hypomanic F31.71 [facility] [address] [place] [id number] [place] [address] Jul, Bipolar disorder, in partial remission, most recent episode hypomanic F31.71 ; Attention deficit hyperactivity disorder (ADHD), combined type F90.2 and Anxiety disorder, unspecified type F41.9 [facility] [address] [place] [id number] [place] [address] Jul, Bipolar disorder, in partial remission, most recent episode hypomanic F31.71 [facility] [address] [place] [id number] [place] [address] Jun, Bipolar disorder, in partial remission, most recent episode hypomanic F31.71 [facility] [address] [place] [id number] [place] [address] May, Bipolar disorder, in partial remission, most recent episode hypomanic F31.71 [facility] [address] [place] [id number] [place] [address] May, Bipolar disorder, in partial remission, most recent episode hypomanic F31.71 [place] [address] [address] Apr, [place] [address] [address] Apr, Bipolar disorder, in partial remission, most recent episode hypomanic F31.71 ; Attention deficit hyperactivity disorder (ADHD), combined type F90.2 ; Anxiety disorder, unspecified type F41.9 and Cannabis abuse F12.10 [place] [address] [address] Apr, Attention deficit hyperactivity disorder (ADHD), combined type F90.2 [place] [address] [address] Mar, Attention deficit hyperactivity disorder (ADHD), combined type F90.2 [place] [address] [address] 14 Mar, 2017 Anxiety disorder, unspecified type F41.9 [place] [address] [address] Jan, Attention deficit hyperactivity disorder (ADHD), combined type F90.[address] [address] Jan, Anxiety disorder, unspecified type F41.[address] [address] Jan, Other chronic pain G89.29 ; Chronic hepa titis C without hepatic coma B18.2 and Bipolar 1 disorder F31.9 [place] [address] [address] Dec, Attention deficit hyperactivity disorder (ADHD), combined type F90.2 [place] [address] [address] Dec, Bipolar disorder, in partial remission, most recent episode hypomanic F31.71 ; Attention deficit hyperactivity disorder (ADHD), combined type F90.2 and Anxiety disorder, unspecified type F41.9 [place] [address] [address] Dec, Bipolar disorder, in partial remission, most recent episode hypomanic F31.71 ; Attention deficit hyperactivity disorder (ADHD), combined type F90.2 and Anxiety disorder, unspecified type F41.9 [place] [address] [address] Dec, Bipolar 1 disorder F31.9 and Attention d eficit R41.840 [place] [address] [address] Oct, Other chronic pain G89.29 ; Alopecia L65 .9 and Screening, lipid Z13.220 [place] [address] [address] Oct, [place] [address] [address] Aug, [place] [address] [address] Aug, Eustachian tube dysfunction, right H69.8 1 ; Vertigo R42 and Other chronic pain G89.29 [place] [address] [address] Aug, [place] [address] [address] Jun, [place] [address] [address] Jun, Low back pain M54.5 and Other chronic pa in G89.29 [place] [address] [address] Jun, [place] [address] [address] May, [place] [address] [address] Jan, [place] [address] [address] Dec, [facility] [address] [address] Dec, [facility] [address] [address] Jun, [facility] [address] [address] Apr, Eustachian tube dysfunction, unspecified laterality H69.80 ; Hot flashes N95.1 and Encounter for immunization Z23 [facility] [address] [address] Jan, [facility] [address] [address] Jan, [facility] [address] [address] Jan, [facility] [address] [address] Jan, [facility] [address] [address] Jan, Encounter to establish care V65.8 ; Bipo lar 1 disorder 296.7 ; Abdominal pain 789.00 ; Constipation 564.00 ; Hard of hearing 389.9 and Drug abuse 305.90 [facility] [address] [address] Dec, [facility] [address] [address] October, [facility] [address] [address] October, [facility] [address] [address] Oct, [facility] [address] [address] Oct, [facility] [address] [address] Oct, [facility] [place] [facility] [address] [id number] [place] [address] Aug, [facility] [place] [facility] [address] [id number] [place] [address] Aug, [facility] [place] [facility] [address] [id number] [place] [address] Aug, [facility] [place] [facility] [address] [id number] [place] [address] Aug, 2014 [facility] [place] [facility] [address] [id number] [place] [address] Aug, 2014 [facility] [place] [facility] [address] [id number] [place] [address] Aug, 2014 [facility] [place] [facility] [address] [id number] [place] [address] Aug, 2014 [facility] [place] [facility] [address] [id number] [place] [address] Aug, 2014 [facility] [place] [facility] [address] [id number] [place] [address] Aug, 2014 [facility] [place] [facility] [address] [id number] [place] [address] Aug, 2014 [facility] [place] [facility] [address] [id number] [place] [address] Aug, 2014 [facility] [place] [facility] [address] [id number] [place] [address] Aug, 2014 [facility] [place] [facility] [address] [id number] [place] [address] Aug, 2014 [facility] [place] [facility] [address] [id number] [place] [address] Aug, 2014 [facility] [place] [facility] [address] [id number] [place] [address] Aug, 2014 [facility] [place] [facility] [address] [id number] [place] [address] Jul, [facility] [place] [facility] [address] [id number] [place] [address] Jul, [facility] [place] [facility] [address] [facility] [id number] [place] [address] Jul, [facility] [place] [facility] [address] [id number] [place] [address] Jul, [facility] [place] [facility] [address] [id number] [place] [address] Jul, [facility] [place] [facility] [address] [id number] [place] [address] Jul, [facility] [place] [facility] [address] [id number] [place] [address] Jul, [facility] [place] [facility] [address] [id number] [place] [address] Jul, [facility] [place] [facility] [address] [id number] [place] [address] Jun, [facility] [place] [facility] [address] [id number] [place] [address] Jun, [facility] [place] [facility] [address] [id number] [place] [address] Jun, [facility] [place] [facility] [address] [id number] [place] [address] Jun, [facility] [place] [facility] [address] [id number] [place] [address] Jun, [facility] [place] [facility] [address] [id number] [place] [address] 15 Jun, 2014 [facility] [place] [facility] [address] [id number] [place] [address] 15 Jun, 2014 [facility] [place] [facility] [address] [id number] [place] [address] Jun, [facility] [place] [facility] [address] [id number] [place] [address] Jun, [facility] [place] [facility] [address] [id number] [place] [address] Jun, [facility] [place] [facility] [address] [id number] [place] [address] Jun, [facility] [place] [facility] [address] [id number] [place] [address] May, [facility] [place] [facility] [address] [id number] [place] [address] May, [facility] [place] [facility] [address] [id number] [place] [address] May, [facility] [place] [facility] [address] [id number] [place] [address] May, [facility] [place] [facility] [address] [id number] [place] [address] May, [facility] [place] [facility] [address] [id number] [place] [address] May, [facility] [place] [facility] [address] [id number] [place] [address] May, [facility] [place] [facility] [address] [id number] [place] [address] Apr, [facility] [place] [facility] [address] [id number] [place] [address] Apr, [facility] [place] [facility] [address] [id number] [place] [address] Apr, [facility] [place] [facility] [address] [id number] [place] [address] Apr, [facility] [place] [facility] [address] [id number] [place] [address] Apr, [facility] [place] [facility] [address] [id number] [place] [address] Apr, [facility] [place] [facility] [address] [place] [id number] [place] [address] Mar, [facility] [place] [facility] [address] [id number] [place] [address] 29 Mar, 2014 [facility] [place] [facility] [address] [id number] [place] [address] Mar, [facility] [place] [facility] [address] [facility] [id number] [place] [address] Mar, [facility] [place] [facility] [address] [facility] [id number] [facility] [address] Mar, [facility] [place] [facility] [address] [id number] [place] [address] Mar, [facility] [place] [facility] [address] [facility] [id number] [place] [address] Jan, [facility] [place] [facility] [address] [facility] [id number] [facility] [address] Jan, [facility] [place] [facility] [address] [id number] [place] [address] Jan, [facility] [place] [facility] [address] [id number] [place] [address] Jan, [facility] [place] [facility] [address] [id number] [place] [address] Dec, [facility] [place] [facility] [address] [facility] [id number] [place] [address] Dec, [facility] [place] [facility] [address] [id number] [place] [address] Dec, [facility] [place] [facility] [address] [id number] [place] [address] Dec, [facility] [place] [facility] [address] [id number] [place] [address] Dec, [facility] [place] [facility] [address] [facility] [id number] [place] [address] Dec, [facility] [place] [facility] [address] [facility] [id number] [place] [address] Dec, [facility] [place] [facility] [address] [facility] [id number] [place] [address] Dec, [facility] [place] [facility] [address] [id number] [place] [address] Dec, [facility] [place] [facility] [address] [facility] [id number] [place] [address] Dec, [facility] [place] [facility] [address] [id number] [place] [address] Dec, [facility] [place] [facility] [address] [id number] [place] [address] Dec, [facility] [place] [facility] [address] [id number] [place] [address] October, [facility] [place] [facility] [address] [id number] [place] [address] October, [facility] [place] [facility] [address] [id number] [place] [address] October, [facility] [place] [facility] [address] [id number] [place] [address] October, [facility] [place] [facility] [address] [id number] [place] [address] October, [facility] [place] [facility] [address] [id number] [place] [address] October, [facility] [place] [facility] [address] [id number] [place] [address] Oct, [facility] [place] [facility] [address] [id number] [place] [address] Oct, [facility] [place] [facility] [address] [id number] [place] [address] Oct, [facility] [place] [facility] [address] [id number] [place] [address] Oct, [facility] [place] [facility] [address] [id number] [place] [address] Oct, [facility] [place] [facility] [address] [id number] [place] [address] Oct, [facility] [place] [facility] [address] [id number] [place] [address] Oct, [facility] [place] [facility] [address] [id number] [place] [address] Oct, [facility] [place] [facility] [address] [id number] [place] [address] Oct, [facility] [place] [facility] [address] [id number] [place] [address] Oct, [facility] [place] [facility] [address] [id number] [place] [address] Oct, [facility] [place] [facility] [address] [id number] [place] [address] Oct, [facility] [place] [facility] [address] [id number] [place] [address] Aug, [facility] [place] [facility] [address] [id number] [place] [address] Aug, [facility] [place] [facility] [address] [id number] [place] [address] Aug, [facility] [place] [facility] [address] [id number] [place] [address] Aug, [facility] [place] [facility] [address] [id number] [place] [address] Aug, [facility] [place] [facility] [address] [id number] [place] [address] Aug, [facility] [place] [facility] [address] [id number] [place] [address] Aug, [facility] [place] [facility] [address] [id number] [place] [address] Aug, [facility] [place] [facility] [address] [id number] [place] [address] Aug, [facility] [place] [facility] [address] [id number] [place] [address] Aug, [facility] [place] [facility] [address] [facility] [id number] [place] [address] Aug, [facility] [place] [facility] [address] [facility] [id number] [place] [address] Aug, [facility] [place] [facility] [address] [facility] [id number] [place] [address] Aug, [facility] [place] [facility] [address] [facility] [id number] [place] [address] Aug, [facility] [place] [facility] [address] [facility] [id number] [place] [address] Aug, [facility] [id number] [place] [address] Aug, [facility] [id number] [place] [address] Aug, [facility] [id number] [place] [address] Aug, [facility] [id number] [place] [address] Aug, [facility] [id number] [place] [address] Aug, [facility] [id number] [place] [address] Aug, [facility] [id number] [place] [address] Aug, [facility] [id number] [place] [address] Aug, [facility] [id number] [place] [address] Aug, [facility] [id number] [place] [address] Aug, [facility] [id number] [place] [address] Jul, [facility] [id number] [place] [address] Jul, [facility] [id number] [place] [address] Jul, [facility] [id number] [place] [address] Jul, [facility] [address] [id number] [place] [address] Jul, [facility] [id number] [place] [address] Jul, [facility] [id number] [place] [address] Jul, [facility] [id number] [place] [address] Jul, [facility] [address] [facility] [id number] [place] [address] Jul, [facility] [id number] [place] [address] Jul, [facility] [id number] [place] [address] Jul, [facility] [id number] [place] [address] Jul, [facility] [id number] [place] [address] Jul, [facility] [id number] [place] [address] Jul, [facility] [id number] [place] [address] Jul, [facility] [id number] [place] [address] Jul, [facility] [id number] [place] [address] Jul, [facility] [address] [id number] [place] [address] Jul, [facility] [id number] [place] [address] Jul, [facility] [id number] [place] [address] Jul, [facility] [id number] [place] [address] 31 Jun, 2013 [facility] [address] [facility] [id number] [place] [address] Jun, [facility] [id number] [place] [address] Jun, [facility] [id number] [place] [address] Jun, [facility] [id number] [place] [address] Jun, [facility] [id number] [place] [address] Jun, [facility] [id number] [place] [address] Jun, [facility] [id number] [place] [address] Jun, [facility] [id number] [place] [address] Jun, [facility] [id number] [place] [address] Jun, [facility] [id number] [place] [address] Jun, [facility] [place] [facility] [id number] [place] [address] Jun, [facility] [place] [facility] [id number] [place] [address] Jun, [facility] [place] [facility] [id number] [place] [address] Jun, [facility] [place] [facility] [id number] [place] [address] Jun, [facility] [place] [facility] [id number] [place] [address] Jun, [facility] [place] [facility] [id number] [place] [address] Jun, [facility] [place] [facility] [id number] [place] [address] 17 Jun, 2013 [facility] [place] [facility] [id number] [place] [address] 17 Jun, 2013 [facility] [place] [facility] [id number] [place] [address] Jun, [facility] [place] [facility] [id number] [place] [address] Jun, [facility] [place] [facility] [id number] [place] [address] Jun, [facility] [place] [facility] [id number] [place] [address] Jun, [facility] [place] [facility] [id number] [place] [address] Jun, [facility] [place] [facility] [id number] [place] [address] Jun, [facility] [place] [facility] [id number] [place] [address] Jun, [facility] [place] [facility] [id number] [place] [address] Jun, [facility] [place] [facility] [id number] [place] [address] May, [facility] [place] [facility] [id number] [place] [address] May, [facility] [place] [facility] [id number] [place] [address] May, [facility] [place] [facility] [id number] [place] [address] May, [facility] [place] [facility] [id number] [place] [address] May, [facility] [place] [facility] [id number] [place] [address] May, [facility] [place] [facility] [id number] [place] [address] Apr, [facility] [place] [facility] [id number] [place] [address] 30 Apr, 2012 [facility] [place] [facility] [id number] [place] [address] 30 Apr, 2012 [facility] [place] [facility] [id number] [place] [address] 30 Apr, 2012 [facility] [place] [facility] [id number] [place] [address] Apr, 2012 [facility] [place] [facility] [address] [facility] [id number] [place] [address] 15 Apr, 2012 [facility] [place] [facility] [id number] [place] [address] 15 Apr, 2012 [facility] [place] [facility] [id number] [place] [address] Apr, [facility] [place] [facility] [id number] [place] [address] 26 Mar, 2012 [facility] [place] [facility] [id number] [place] [address] 24 Sep, 2012 [facility] [place] [facility] [id number] [place] [address] 17 Sep, 2012 [facility] [place] [facility] [id number] [place] [address] 17 Sep, 2012 [facility] [place] [facility] [id number] [place] [address] 11 Sep, 2012 [facility] [place] [facility] [id number] [place] [address] 10 Sep, 2012 [facility] [place] [facility] [id number] [place] [address] 05 Sep, 2012 [facility] [place] [facility] [id number] [place] [address] 04 Sep, 2012 [facility] [place] [facility] [id number] [place] [address] 20 Jan, 2012 [facility] [place] [facility] [address] [id number] [facility] [address] Jan, [facility] [place] [facility] [address] [id number] [facility] [address] Jan, [facility] [place] [facility] [address] [facility] [id number] [facility] [address] Jan, [facility] [place] [facility] [id number] [facility] [address] Jan, [facility] [place] [facility] [address] [facility] [id number] [facility] [address] 05 Jan, 2013 [facility] [place] [facility] [address] [facility] [id number] [place] [address] Dec, [facility] [place] [facility] [address] [facility] [id number] [place] [address] 24 Dec, 2012 [facility] [place] [facility] [id number] [facility] [address] Dec, [facility] [place] [facility] [id number] [facility] [address] Dec, [facility] [place] [facility] [address] [facility] [facility] [id number] [facility] [address] Dec, [facility] [place] [facility] [id number] [facility] [address] 17 Dec, 2012 [facility] [place] [facility] [id number] [place] [address] 16 Dec, 2012 [facility] [place] [facility] [id number] [facility] [address] 16 Dec, 2012 [facility] [place] [facility] [address] [facility] [facility] [id number] [facility] [address] 15 Dec, 2012 [facility] [place] [facility] [id number] [facility] [address] Dec, [facility] [place] [facility] [address] [facility] [facility] [id number] [facility] [address] Dec, [facility] [place] [facility] [id number] [facility] [address] Dec, [facility] [place] [facility] [address] [id number] [place] [address] Dec, [facility] [place] [facility] [id number] [place] [address] Dec, [facility] [place] [facility] [id number] [place] [address] Dec, [facility] [place] [facility] [id number] [place] [address] Dec, [facility] [place] [facility] [id number] [place] [address] October, [facility] [place] [facility] [id number] [place] [address] October, [facility] [place] [facility] [id number] [place] [address] October, [facility] [place] [facility] [id number] [place] [address] October, [facility] [place] [facility] [id number] [place] [address] October, [facility] [place] [facility] [id number] [place] [address] October, [facility] [place] [facility] [id number] [place] [address] October, [facility] [place] [facility] [id number] [place] [address] Oct, [facility] [place] [facility] [id number] [place] [address] Oct, [facility] [place] [facility] [id number] [place] [address] Oct, [facility] [place] [facility] [id number] [place] [address] Oct, [facility] [place] [facility] [id number] [place] [address] Oct, [facility] [place] [facility] [id number] [place] [address] Oct, [facility] [address] [facility] [id number] [place] [address] 17 Oct, 2012 [facility] [place] [facility] [id number] [place] [address] 15 Oct, 2012 [facility] [place] [facility] [id number] [place] [address] 12 Oct, 2012 [facility] [place] [facility] [id number] [place] [address] Oct, [facility] [place] [facility] [address] [facility] [id number] [place] [address] Oct, [facility] [place] [facility] [id number] [place] [address] Oct, [facility] [place] [facility] [id number] [place] [address] Aug, [facility] [place] [facility] [id number] [place] [address] Aug, [facility] [place] [facility] [id number] [place] [address] Aug, [facility] [place] [facility] [id number] [place] [address] 06 Aug, 2012 [facility] [place] [facility] [id number] [place] [address] 05 Aug, 2012 [facility] [place] [facility] [id number] [place] [address] 05 Aug, 2012 [facility] [place] [facility] [id number] [place] [address] 20 Aug, 2012 [facility] [place] [facility] [id number] [place] [address] 14 Aug, 2012 [facility] [place] [facility] [id number] [place] [address] 12 Aug, 2012 [facility] [place] [facility] [id number] [place] [address] Aug, [facility] [place] [facility] [id number] [place] [address] 29 Jul, 2012 [facility] [place] [facility] [id number] [place] [address] 15 Jul, 2012 [facility] [place] [facility] [id number] [place] [address] 08 Jul, 2012 [facility] [place] [facility] [id number] [place] [address] 20 Jun, 2012 [facility] [place] [facility] [id number] [place] [address] 18 Jun, 2012 [facility] [place] [facility] [id number] [place] [address] 18 Jun, 2012 [facility] [place] [facility] [id number] [place] [address] 18 Jun, 2012 [facility] [place] [facility] [id number] [place] [address] 18 Jun, 2012 [facility] [place] [facility] [id number] [place] [address] 14 Jun, 2012 [facility] [place] [facility] [id number] [place] [address] 14 Jun, 2012 [facility] [place] [facility] [id number] [place] [address] 13 Jun, 2012 [facility] [place] [facility] [id number] [place] [address] 13 Jun, 2012 [facility] [place] [facility] [id number] [place] [address] 11 Jun, 2012 [facility] [place] [facility] [id number] [place] [address] 11 Jun, 2012 [facility] [place] [facility] [id number] [place] [address] 11 Jun, 2012 [facility] [place] [facility] [id number] [place] [address] 11 Jun, 2012 [facility] [place] [facility] [id number] [place] [address] 07 Jun, 2012 [facility] [place] [facility] [id number] [place] [address] Jun, [facility] [place] [facility] [id number] [place] [address] Jun, [facility] [place] [facility] [id number] [place] [address] Jun, [facility] [place] [facility] [id number] [place] [address] Jun, [facility] [place] [facility] [id number] [place] [address] Jun, [facility] [place] [facility] [id number] [place] [address] Jun, [facility] [place] [facility] [id number] [place] [address] Jun, [facility] [place] [facility] [id number] [place] [address] Jun, [facility] [place] [facility] [id number] [place] [address] Jun, [facility] [place] [facility] [id number] [place] [address] May, [facility] [place] [facility] [id number] [place] [address] May, [facility] [place] [facility] [id number] [place] [address] May, [facility] [place] [facility] [id number] [place] [address] May, [facility] [place] [facility] [id number] [place] [address] May, [facility] [place] [facility] [id number] [place] [address] May, [facility] [place] [facility] [id number] [place] [address] May, [facility] [place] [facility] [id number] [place] [address] May, [facility] [place] [facility] [address] [facility] [id number] [place] [address] Apr, 2011 [facility] [place] [facility] [id number] [place] [address] Apr, [facility] [place] [facility] [id number] [place] [address] Apr, 2011 [facility] [place] [facility] [id number] [place] [address] Apr, [facility] [place] [facility] [address] [facility] [facility] [id number] [place] [address] Apr, [facility] [place] [facility] [id number] [place] [address] Apr, [facility] [place] [facility] [id number] [place] [address] Apr, [facility] [place] [facility] [id number] [place] [address] Apr, [facility] [place] [facility] [id number] [place] [address] 09 Apr, 2012 [facility] [place] [facility] [id number] [place] [address] 08 Apr, 2012 [facility] [place] [facility] [id number] [place] [address] 04 Apr, 2012 [facility] [place] [facility] [id number] [place] [address] 02 Apr, 2012 [facility] [place] [facility] [id number] [place] [address] 19 Mar, 2011 [facility] [place] [facility] [address] [facility] [facility] [id number] [place] [address] 18 Sep, 2011 [facility] [place] [facility] [id number] [place] [address] 12 Sep, 2011 [facility] [place] [facility] [id number] [place] [address] 12 Mar, 2011 [facility] [place] [facility] [address] [facility] [id number] [place] [id number] Mar, [facility] [place] [facility] [address] [id number] [place] [id number] Mar, [facility] [place] [facility] [address] [id number] [place] [address] Mar, [facility] [place] [facility] [id number] [place] [address] Jan, [facility] [place] [facility] [address] [id number] [place] [address] Jan, [facility] [place] [facility] [address] [id number] [place] [id number] Jan, [facility] [place] [facility] [address] [id number] [place] [address] , [place] [id number] Jan, [facility] [place] [facility] [id number] [place] [address] Jan, [facility] [place] [facility] [id number] [place] [address] Jan, [facility] [place] [facility] [address] [id number] [place] [address] Jan, [facility] [place] [facility] [id number] [place] [address] Jan, [facility] [place] [facility] [id number] [place] [address] Jan, [facility] [place] [facility] [id number] [place] [address] Jan, [facility] [place] [facility] [id number] [place] [address] Jan, [facility] [place] [facility] [address] [id number] [place] [address] Dec, [facility] [place] [facility] [id number] [place] [address] Dec, [facility] [place] [facility] [id number] [place] [address] Dec, [facility] [place] [facility] [id number] [place] [address] 26 Jan, 2012 [facility] [place] [facility] [address] [id number] [place] [address] 20 Jan, 2012 [facility] [place] [facility] [id number] [place] [address] 19 Jan, 2012 [facility] [place] [facility] [id number] [place] [address] 18 Jan, 2012 [facility] [place] [facility] [id number] [place] [address] 17 Jan, 2012 [facility] [place] [facility] [address] [facility] [id number] [place] [address] 16 Jan, 2012 [facility] [place] [facility] [id number] [place] [address] 13 Jan, 2012 [facility] [place] [facility] [id number] [place] [address] Dec, [facility] [place] [facility] [id number] [place] [address] Dec, [facility] [place] [facility] [id number] [place] [address] Dec, [facility] [place] [facility] [id number] [place] [address] Dec, [facility] [place] [facility] [id number] [place] [address] Dec, [facility] [place] [facility] [id number] [place] [address] Dec, [facility] [place] [facility] [id number] [place] [address] 15 Dec, 2011 [facility] [place] [facility] [id number] [place] [address] 06 Dec, 2011 [facility] [place] [facility] [id number] [place] [address] 05 Dec, 2011 [facility] [place] [facility] [id number] [place] [address] October, [facility] [place] [facility] [id number] [place] [address] October, [facility] [place] [facility] [id number] [place] [address] October, [facility] [place] [facility] [id number] [place] [address] October, [facility] [place] [facility] [id number] [place] [address] October, [facility] [place] [facility] [id number] [place] [address] October, [facility] [place] [facility] [id number] [place] [address] Oct, [facility] [place] [facility] [id number] [place] [address] Oct, [facility] [place] [facility] [id number] [place] [address] Oct, [facility] [place] [facility] [id number] [place] [address] Oct, [facility] [place] [facility] [id number] [place] [address] Oct, [facility] [place] [facility] [id number] [place] [address] Oct, [facility] [place] [facility] [id number] [place] [address] Oct, [facility] [place] [facility] [id number] [place] [address] Aug, [facility] [place] [facility] [id number] [place] [address] Aug, [facility] [place] [facility] [id number] [place] [address] Aug, [facility] [place] [facility] [id number] [place] [address] Aug, [facility] [place] [facility] [id number] [place] [address] Aug, [facility] [place] [facility] [id number] [place] [address] Aug, [facility] [place] [facility] [id number] [place] [address] Aug, [facility] [place] [facility] [id number] [place] [address] Aug, [facility] [place] [facility] [id number] [place] [address] Aug, [facility] [place] [facility] [id number] [place] [address] Jul, [facility] [id number] [place] [address] Jul, [facility] [id number] [place] [address] Jul, [facility] [id number] [place] [address] Jul, [facility] [id number] [place] [address] Jun, [facility] [id number] [place] [address] Jun, [facility] [id number] [place] [address] May, [facility] [id number] [place] [address] May, [facility] [id number] [place] [address] May, [facility] [id number] [place] [address] May, [facility] [id number] [place] [address] May, [facility] [id number] [place] [address] Apr, [facility] [id number] [place] [address] 28 Apr, 2011 [facility] [id number] [place] [address] Apr, [facility] [id number] [place] [address] Jan, [facility] [id number] [place] [address] Dec, [facility] [id number] [place] [address] October, [facility] [id number] [place] [address] Jun, [facility] [id number] [place] [address] Apr, [facility] [id number] [place] [address] Apr, [facility] [id number] [place] [address] Apr, [facility] [id number] [place] [address] Jun, IMMUNIZATIONS No Known Immunizations SOCIAL HISTORY [...]
--- OUTSIDE RECORDS SUMMARY | 2020-01-25 12:28 | XMS REPORT ---
Author Author Quang Mayereen Doctor Organization [facility] Address Unknown Phone Unavailable Care Team Providers Care Chiropractic Care Name Role Phone Migration, Doctor Unavailable Unavailable PROBLEMS Type Condition ICD9-CM Code [id number] Code Onset Dates Condition S tatus SNOMED Code Problem Chronic hepatitis C without hepatic coma B18.2 Active 479922321 Problem Cannabis abuse F12.10 Active 74904 009 Problem Bipolar 1 disorder F31.9 Active 3 85316901 Problem Attention deficit hyperactivity disorder (ADHD), combi luciano type F90.2 Active 87804808 Problem Attention deficit R41.840 Active 76 663178 Problem Hot flashes due to menopause N95.1 A ctive 947717282 Problem H/O laminectomy Z98.89 Active 1616 50613 Problem Other chronic pain G89.29 Active 8 9463378 Problem Anxiety disorder, unspecified type F41.9 Active 752687929 Problem Bipolar disorder, in partial remission, most rec ent episode hypomanic F31.71 Active [id number] ALLERGIES No Information ENCOUNTERS Encounter Location Date Diagnosis [place] [address] [address] Aug, [facility] [address] [address] Jul, [place] [address] [address] Jul, [facility] [address] [address] Apr, [place] [address] [address] Mar, Hot flashes due to menopause N95.1 ; Anx iety disorder, unspecified type F41.9 ; Low back pain M54.5 and Encounter for immunization Z23 [place] [address] [address] Dec, Other chronic pain G89.29 and Low back p ain M54.5 [facility] [address] [address] October, [facility] [address] [address] October, [facility] [address] [address] October, [facility] [address] [address] October, Other chronic pain G89.29 and Chronic he patitis C without hepatic coma B18.2 [facility] [address] [address] Aug, Bipolar disorder, in partial remission, most recent episode hypomanic F31.71 ; Attention deficit hyperactivity disorder (ADHD), combined type F90.2 and Anxiety disorder, unspecified type F41.9 [facility] [address] [address] Aug, [facility] [address] [address] Aug, Bipolar disorder, in partial remission, most recent episode hypomanic F31.71 [facility] [address] [address] 14 Aug, 2018 [facility] [address] [address] Aug, Bipolar disorder, in partial remission, most recent episode hypomanic F31.71 [facility] [address] [address] Aug, Bipolar disorder, in partial remission, most recent episode hypomanic F31.71 ; Attention deficit hyperactivity disorder (ADHD), combined type F90.2 and Anxiety disorder, unspecified type F41.9 [facility] [address] [address] Aug, Low back pain M54.5 and Pain in left wri st M25.532 [facility] [address] [address] Aug, [facility] [address] [address] Jun, [facility] [address] [address] Apr, Bipolar disorder, in partial remission, most recent episode hypomanic F31.71 [facility] [address] [address] Apr, [place] [address] [address] Apr, Bipolar disorder, in partial remission, most recent episode hypomanic F31.71 ; Attention deficit hyperactivity disorder (ADHD), combined type F90.2 ; Anxiety disorder, unspecified type F41.9 and Other terminologist (current) 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 Z79.899 [place] [address] [address] Apr, Bipolar disorder, in partial remission, most recent episode hypomanic F31.71 [place] [address] [address] Apr, Bipolar disorder, in partial remission, most recent episode hypomanic F31.71 [place] [address] [address] Mar, [place] [address] [address] Mar, Bipolar disorder, in partial remission, most recent episode hypomanic F31.71 ; Encounter for immunization Z23 and Low back pain M54.5 [facility] [address] [address] 17 Mar, 2018 Bipolar disorder, in partial remission, most recent episode hypomanic F31.71 [facility] [address] [address] Mar, Bipolar disorder, in partial remission, most recent episode hypomanic F31.71 [facility] [address] [id number] [place] [address] Jan, Bipolar disorder, in partial remission, most recent episode hypomanic F31.71 [facility] [address] [id number] [place] [address] Jan, Bipolar disorder, in partial remission, most recent episode hypomanic F31.71 [facility] [address] [id number] [place] [address] Dec, Bipolar disorder, in partial remission, most recent episode hypomanic F31.71 [facility] [address] [id number] [place] [address] Dec, Bipolar disorder, in partial remission, most recent episode hypomanic F31.71 ; Attention deficit hyperactivity disorder (ADHD), combined type F90.2 ; Anxiety disorder, unspecified type F41.9 and Other custodial (current) 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 Z79.899 [facility] [address] [place] [id number] [place] [address] Dec, Bipolar disorder, in partial remission, most recent episode hypomanic F31.71 [facility] [address] [id number] [place] [address] Dec, Bipolar disorder, in partial remission, most recent episode hypomanic F31.71 [facility] [address] [id number] [place] [address] October, Bipolar disorder, in partial remission, most recent episode hypomanic F31.71 [facility] [address] [id number] [place] [address] October, [facility] [address] [id number] [place] [address] October, [facility] [address] [id number] [place] [address] Oct, Bipolar disorder, in partial remission, most recent episode hypomanic F31.71 ; Attention deficit hyperactivity disorder (ADHD), combined type F90.2 ; Anxiety disorder, unspecified type F41.9 and Encounter for drug screening Z02.83 [facility] [address] [place] [id number] [place] [address] Oct, Bipolar disorder, in partial remission, most recent episode hypomanic F31.71 [facility] [address] [place] [id number] [place] [address] Oct, Bipolar disorder, in partial remission, most recent episode hypomanic F31.71 [facility] [address] [address] Aug, Bipolar disorder, in partial remission, most recent episode hypomanic F31.71 [facility] [address] [address] Aug, Bipolar disorder, in partial remission, most recent episode hypomanic F31.71 [facility] [address] [address] Aug, Bipolar disorder, in partial remission, most recent episode hypomanic F31.71 [facility] [address] [place] [id number] [place] [address] Jul, Bipolar disorder, in partial remission, most recent episode hypomanic F31.71 ; Attention deficit hyperactivity disorder (ADHD), combined type F90.2 and Anxiety disorder, unspecified type F41.9 [facility] [address] [place] [id number] [place] [address] Jul, Bipolar disorder, in partial remission, most recent episode hypomanic F31.71 [facility] [address] [place] [id number] [place] [address] Jun, Bipolar disorder, in partial remission, most recent episode hypomanic F31.71 [facility] [address] [place] [id number] [place] [address] May, Bipolar disorder, in partial remission, most recent episode hypomanic F31.71 [facility] [address] [place] [id number] [place] [address] May, Bipolar disorder, in partial remission, most recent episode hypomanic F31.71 [place] [address] [address] Apr, [place] [address] [address] Apr, Bipolar disorder, in partial remission, most recent episode hypomanic F31.71 ; Attention deficit hyperactivity disorder (ADHD), combined type F90.2 ; Anxiety disorder, unspecified type F41.9 and Cannabis abuse F12.10 [place] [address] [address] Apr, Attention deficit hyperactivity disorder (ADHD), combined type F90.2 [place] [address] [address] Mar, Attention deficit hyperactivity disorder (ADHD), combined type F90.2 [place] [address] [address] 14 Mar, 2017 Anxiety disorder, unspecified type F41.9 [place] [address] [address] Jan, Attention deficit hyperactivity disorder (ADHD), combined type F90.[address] [address] Jan, Anxiety disorder, unspecified type F41.[address] [address] Jan, Other chronic pain G89.29 ; Chronic hepa titis C without hepatic coma B18.2 and Bipolar 1 disorder F31.9 [place] [address] [address] Dec, Attention deficit hyperactivity disorder (ADHD), combined type F90.2 [place] [address] [address] Dec, Bipolar disorder, in partial remission, most recent episode hypomanic F31.71 ; Attention deficit hyperactivity disorder (ADHD), combined type F90.2 and Anxiety disorder, unspecified type F41.9 [place] [address] [address] Dec, Bipolar disorder, in partial remission, most recent episode hypomanic F31.71 ; Attention deficit hyperactivity disorder (ADHD), combined type F90.2 and Anxiety disorder, unspecified type F41.9 [place] [address] [address] Dec, Bipolar 1 disorder F31.9 and Attention d eficit R41.840 [place] [address] [address] Oct, Other chronic pain G89.29 ; Alopecia L65 .9 and Screening, lipid Z13.220 [place] [address] [address] Oct, [place] [address] [address] Aug, [place] [address] [address] Aug, Eustachian tube dysfunction, right H69.8 1 ; Vertigo R42 and Other chronic pain G89.29 [place] [address] [address] Aug, [place] [address] [address] Jun, [place] [address] [address] Jun, Low back pain M54.5 and Other chronic pa in G89.29 [place] [address] [address] Jun, [place] [address] [address] May, [place] [address] [address] Jan, [place] [address] [address] Dec, [facility] [address] [address] Dec, [facility] [address] [address] Jun, [facility] [address] [address] Apr, Eustachian tube dysfunction, unspecified laterality H69.80 ; Hot flashes N95.1 and Encounter for immunization Z23 [facility] [address] [address] Jan, [facility] [address] [address] Jan, [facility] [address] [address] Jan, [facility] [address] [address] Jan, [facility] [address] [address] Jan, Encounter to establish care V65.8 ; Bipo lar 1 disorder 296.7 ; Abdominal pain 789.00 ; Constipation 564.00 ; Hard of hearing 389.9 and Drug abuse 305.90 [facility] [address] [address] Dec, [facility] [address] [address] October, [facility] [address] [address] October, [facility] [address] [address] Oct, [facility] [address] [address] Oct, [facility] [address] [address] Oct, [facility] [place] [facility] [address] [id number] [place] [address] Aug, [facility] [place] [facility] [address] [id number] [place] [address] Aug, [facility] [place] [facility] [address] [id number] [place] [address] Aug, [facility] [place] [facility] [address] [id number] [place] [address] Aug, 2014 [facility] [place] [facility] [address] [id number] [place] [address] Aug, 2014 [facility] [place] [facility] [address] [id number] [place] [address] Aug, 2014 [facility] [place] [facility] [address] [id number] [place] [address] Aug, 2014 [facility] [place] [facility] [address] [id number] [place] [address] Aug, 2014 [facility] [place] [facility] [address] [id number] [place] [address] Aug, 2014 [facility] [place] [facility] [address] [id number] [place] [address] Aug, 2014 [facility] [place] [facility] [address] [id number] [place] [address] Aug, 2014 [facility] [place] [facility] [address] [id number] [place] [address] Aug, 2014 [facility] [place] [facility] [address] [id number] [place] [address] Aug, 2014 [facility] [place] [facility] [address] [id number] [place] [address] Aug, 2014 [facility] [place] [facility] [address] [id number] [place] [address] Aug, 2014 [facility] [place] [facility] [address] [id number] [place] [address] Jul, [facility] [place] [facility] [address] [id number] [place] [address] Jul, [facility] [place] [facility] [address] [facility] [id number] [place] [address] Jul, [facility] [place] [facility] [address] [id number] [place] [address] Jul, [facility] [place] [facility] [address] [id number] [place] [address] Jul, [facility] [place] [facility] [address] [id number] [place] [address] Jul, [facility] [place] [facility] [address] [id number] [place] [address] Jul, [facility] [place] [facility] [address] [id number] [place] [address] Jul, [facility] [place] [facility] [address] [id number] [place] [address] Jun, [facility] [place] [facility] [address] [id number] [place] [address] Jun, [facility] [place] [facility] [address] [id number] [place] [address] Jun, [facility] [place] [facility] [address] [id number] [place] [address] Jun, [facility] [place] [facility] [address] [id number] [place] [address] Jun, [facility] [place] [facility] [address] [id number] [place] [address] 15 Jun, 2014 [facility] [place] [facility] [address] [id number] [place] [address] 15 Jun, 2014 [facility] [place] [facility] [address] [id number] [place] [address] Jun, [facility] [place] [facility] [address] [id number] [place] [address] Jun, [facility] [place] [facility] [address] [id number] [place] [address] Jun, [facility] [place] [facility] [address] [id number] [place] [address] Jun, [facility] [place] [facility] [address] [id number] [place] [address] May, [facility] [place] [facility] [address] [id number] [place] [address] May, [facility] [place] [facility] [address] [id number] [place] [address] May, [facility] [place] [facility] [address] [id number] [place] [address] May, [facility] [place] [facility] [address] [id number] [place] [address] May, [facility] [place] [facility] [address] [id number] [place] [address] May, [facility] [place] [facility] [address] [place] [id number] [place] [address] May, [facility] [place] [facility] [address] [id number] [place] [address] Apr, [facility] [place] [facility] [address] [id number] [place] [address] Apr, [facility] [place] [facility] [address] [id number] [place] [address] Apr, [facility] [place] [facility] [address] [id number] [place] [address] Apr, [facility] [place] [facility] [address] [id number] [place] [address] Apr, [facility] [place] [facility] [address] [id number] [place] [address] Apr, [facility] [place] [facility] [address] [place] [address] [id number] [place] [address] Mar, [facility] [place] [facility] [address] [id number] [place] [address] 29 Mar, 2014 [facility] [place] [facility] [address] [id number] [place] [address] Mar, [facility] [place] [facility] [address] [facility] [id number] [place] [address] Mar, [facility] [place] [facility] [address] [facility] [id number] [facility] [place] [address] Mar, [facility] [place] [facility] [address] [id number] [place] [address] Mar, [facility] [place] [facility] [address] [facility] [id number] [place] [address] Jan, [facility] [place] [facility] [address] [facility] [id number] [facility] [address] Jan, [facility] [place] [facility] [address] [id number] [place] [address] Jan, [facility] [place] [facility] [address] [id number] [place] [address] Jan, [facility] [place] [facility] [address] [id number] [place] [address] Dec, [facility] [place] [facility] [address] [facility] [id number] [place] [address] Dec, [facility] [place] [facility] [address] [id number] [place] [address] Dec, [facility] [place] [facility] [address] [id number] [place] [address] Dec, [facility] [place] [facility] [address] [id number] [place] [address] Dec, [facility] [place] [facility] [address] [facility] [id number] [place] [address] Dec, [facility] [place] [facility] [address] [facility] [id number] [place] [address] Dec, [facility] [place] [facility] [address] [facility] [id number] [place] [address] Dec, [facility] [place] [facility] [address] [id number] [place] [address] Dec, [facility] [place] [facility] [address] [facility] [id number] [place] [address] Dec, [facility] [place] [facility] [address] [id number] [place] [address] Dec, [facility] [place] [facility] [address] [id number] [place] [address] Dec, [facility] [place] [facility] [address] [id number] [place] [address] October, [facility] [place] [facility] [address] [id number] [place] [address] October, [facility] [place] [facility] [address] [id number] [place] [address] October, [facility] [place] [facility] [address] [id number] [place] [address] October, [facility] [place] [facility] [address] [id number] [place] [address] October, [facility] [place] [facility] [address] [id number] [place] [address] October, [facility] [place] [facility] [address] [id number] [place] [address] Oct, [facility] [place] [facility] [address] [id number] [place] [address] Oct, [facility] [place] [facility] [address] [id number] [place] [address] Oct, [facility] [place] [facility] [address] [id number] [place] [address] Oct, [facility] [place] [facility] [address] [id number] [place] [address] Oct, [facility] [place] [facility] [address] [id number] [place] [address] Oct, [facility] [place] [facility] [address] [id number] [place] [address] Oct, [facility] [place] [facility] [address] [id number] [place] [address] Oct, [facility] [place] [facility] [address] [id number] [place] [address] Oct, [facility] [place] [facility] [address] [id number] [place] [address] Oct, [facility] [place] [facility] [address] [id number] [place] [address] Oct, [facility] [place] [facility] [address] [id number] [place] [address] Oct, [facility] [place] [facility] [address] [id number] [place] [address] Aug, [facility] [place] [facility] [address] [id number] [place] [address] Aug, [facility] [place] [facility] [address] [id number] [place] [address] Aug, [facility] [place] [facility] [address] [id number] [place] [address] Aug, [facility] [place] [facility] [address] [id number] [place] [address] Aug, [facility] [place] [facility] [address] [id number] [place] [address] Aug, [facility] [place] [facility] [address] [id number] [place] [address] Aug, [facility] [place] [facility] [address] [id number] [place] [address] Aug, [facility] [address] [id number] [place] [address] Aug, [facility] [address] [id number] [place] [address] Aug, [facility] [address] [id number] [place] [address] Aug, [facility] [address] [id number] [place] [address] Aug, [facility] [address] [id number] [place] [address] Aug, [facility] [address] [id number] [place] [address] Aug, [facility] [address] [id number] [place] [address] Aug, [facility] [address] [id number] [place] [address] Aug, [facility] [address] [id number] [place] [address] Aug, [facility] [address] [id number] [place] [address] Aug, [facility] [address] [id number] [place] [address] Aug, [facility] [address] [id number] [place] [address] Aug, [facility] [address] [id number] [place] [address] Aug, [facility] [address] [id number] [place] [address] Aug, [facility] [address] [id number] [place] [address] Aug, [facility] [address] [id number] [place] [address] Aug, [facility] [address] [id number] [place] [address] Aug, [facility] [address] [id number] [place] [address] Jul, [facility] [address] [id number] [place] [address] Jul, [facility] [address] [id number] [place] [address] Jul, [facility] [address] [id number] [place] [address] Jul, [facility] [id number] [place] [address] Jul, [facility] [address] [id number] [place] [address] Jul, [facility] [address] [id number] [place] [address] Jul, [facility] [address] [id number] [place] [address] Jul, [facility] [address] [facility] [id number] [place] [address] Jul, [facility] [address] [id number] [place] [address] Jul, [facility] [address] [id number] [place] [address] Jul, [facility] [address] [id number] [place] [address] Jul, [facility] [address] [facility] [id number] [place] [address] Jul, [facility] [place] [facility] [address] [id number] [place] [address] Jul, [facility] [place] [facility] [address] [id number] [place] [address] Jul, [facility] [place] [facility] [address] [id number] [place] [address] Jul, [facility] [place] [facility] [address] [id number] [place] [address] Jul, [facility] [place] [facility] [address] [id number] [place] [address] Jul, [facility] [place] [facility] [address] [id number] [place] [address] Jul, [facility] [place] [facility] [address] [id number] [place] [address] Jul, [facility] [place] [facility] [address] [id number] [place] [address] 31 Jun, 2013 [facility] [place] [facility] [address] [facility] [id number] [place] [address] Jun, [facility] [place] [facility] [address] [id number] [place] [address] Jun, [facility] [place] [facility] [address] [id number] [place] [address] Jun, [facility] [place] [facility] [address] [id number] [place] [address] Jun, [facility] [place] [facility] [address] [id number] [place] [address] Jun, [facility] [place] [facility] [address] [id number] [place] [address] Jun, [facility] [place] [facility] [address] [id number] [place] [address] Jun, [facility] [place] [facility] [address] [id number] [place] [address] Jun, [facility] [place] [facility] [address] [id number] [place] [address] Jun, [facility] [place] [facility] [address] [id number] [place] [address] Jun, [facility] [place] [facility] [address] [id number] [place] [address] Jun, [facility] [place] [facility] [address] [id number] [place] [address] Jun, [facility] [place] [facility] [address] [id number] [place] [address] Jun, [facility] [place] [facility] [address] [id number] [place] [address] Jun, [facility] [place] [facility] [address] [id number] [place] [address] Jun, [facility] [place] [facility] [address] [id number] [place] [address] Jun, [facility] [place] [facility] [address] [id number] [place] [address] 17 Jun, 2013 [facility] [place] [facility] [address] [id number] [place] [address] 17 Jun, 2013 [facility] [place] [facility] [address] [id number] [place] [address] Jun, [facility] [place] [facility] [address] [id number] [place] [address] Jun, [facility] [place] [facility] [address] [id number] [place] [address] Jun, [facility] [place] [facility] [address] [id number] [place] [address] Jun, [facility] [place] [facility] [address] [id number] [place] [address] Jun, [facility] [place] [facility] [address] [id number] [place] [address] Jun, [facility] [place] [facility] [address] [id number] [place] [address] Jun, [facility] [place] [facility] [address] [id number] [place] [address] Jun, [facility] [place] [facility] [address] [id number] [place] [address] May, [facility] [place] [facility] [address] [id number] [place] [address] May, [facility] [place] [facility] [address] [id number] [place] [address] May, [facility] [place] [facility] [address] [id number] [place] [address] May, [facility] [place] [facility] [id number] [place] [address] May, [facility] [place] [facility] [address] [id number] [place] [address] May, [facility] [place] [facility] [address] [id number] [place] [address] Apr, [facility] [place] [facility] [address] [id number] [place] [address] 30 Apr, 2012 [facility] [place] [facility] [address] [id number] [place] [address] 30 Apr, 2012 [facility] [place] [facility] [address] [id number] [place] [address] 30 Apr, 2012 [facility] [place] [facility] [address] [id number] [place] [address] Apr, 2012 [facility] [place] [facility] [address] [facility] [id number] [place] [address] 15 Apr, 2012 [facility] [place] [facility] [address] [id number] [place] [address] 15 Apr, 2012 [facility] [place] [facility] [address] [id number] [place] [address] Apr, [facility] [place] [facility] [address] [id number] [place] [address] 26 Mar, 2012 [facility] [place] [facility] [address] [id number] [place] [address] 24 Sep, 2012 [facility] [place] [facility] [address] [id number] [place] [address] 17 Sep, 2012 [facility] [place] [facility] [address] [id number] [place] [address] 17 Sep, 2012 [facility] [place] [facility] [address] [id number] [place] [address] 11 Sep, 2012 [facility] [place] [facility] [address] [id number] [place] [address] 10 Sep, 2012 [facility] [place] [facility] [address] [id number] [place] [address] 05 Sep, 2012 [facility] [place] [facility] [address] [id number] [place] [address] 04 Sep, 2012 [facility] [place] [facility] [address] [id number] [place] [address] 20 Jan, 2012 [facility] [place] [facility] [address] [id number] [facility] [place] [address] Jan, [facility] [place] [facility] [address] [id number] [facility] [place] [address] Jan, [facility] [place] [facility] [address] [facility] [id number] [facility] [place] [address] Jan, [facility] [place] [facility] [address] [id number] [facility] [place] [address] Jan, [facility] [place] [facility] [address] [facility] [id number] [facility] [place] [address] 05 Jan, 2013 [facility] [place] [facility] [address] [facility] [id number] [place] [address] Dec, [facility] [place] [facility] [address] [facility] [id number] [place] [address] 24 Dec, 2012 [facility] [place] [facility] [address] [id number] [facility] [place] [address] Dec, [facility] [place] [facility] [address] [id number] [facility] [place] [address] Dec, [facility] [place] [facility] [address] [facility] [id number] [facility] [place] [address] Dec, [facility] [place] [facility] [address] [id number] [facility] [place] [address] 17 Dec, 2012 [facility] [place] [facility] [address] [id number] [place] [address] 16 Dec, 2012 [facility] [place] [facility] [address] [id number] [facility] [place] [address] 16 Dec, 2012 [facility] [place] [facility] [address] [facility] [id number] [facility] [place] [address] 15 Dec, 2012 [facility] [place] [facility] [address] [id number] [facility] [place] [address] Dec, [facility] [place] [facility] [address] [facility] [id number] [facility] [place] [address] Dec, [facility] [place] [facility] [address] [id number] [facility] [place] [place] [address] Dec, [facility] [place] [facility] [address] [id number] [place] [address] Dec, [facility] [place] [facility] [address] [id number] [place] [address] Dec, [facility] [place] [facility] [address] [id number] [place] [address] Dec, [facility] [place] [facility] [address] [id number] [place] [address] Dec, [facility] [place] [facility] [address] [id number] [place] [address] October, [facility] [place] [facility] [address] [id number] [place] [address] October, [facility] [place] [facility] [address] [id number] [place] [address] October, [facility] [place] [facility] [address] [id number] [place] [address] October, [facility] [place] [facility] [address] [id number] [place] [address] October, [facility] [place] [facility] [address] [id number] [place] [address] October, [facility] [place] [facility] [address] [id number] [place] [address] October, [facility] [place] [facility] [address] [id number] [place] [address] Oct, [facility] [place] [facility] [address] [id number] [place] [address] Oct, [facility] [place] [facility] [address] [id number] [place] [address] Oct, [facility] [place] [facility] [address] [id number] [place] [address] Oct, [facility] [place] [facility] [address] [id number] [place] [address] Oct, [facility] [place] [facility] [address] [id number] [place] [address] Oct, [facility] [address] [facility] [id number] [place] [address] 17 Oct, 2012 [facility] [place] [facility] [address] [id number] [place] [address] 15 Oct, 2012 [facility] [place] [facility] [address] [id number] [place] [address] 12 Oct, 2012 [facility] [place] [facility] [address] [id number] [place] [address] Oct, [facility] [place] [facility] [address] [facility] [id number] [place] [address] Oct, [facility] [place] [facility] [address] [id number] [place] [address] Oct, [facility] [place] [facility] [address] [id number] [place] [address] Aug, [facility] [place] [facility] [address] [id number] [place] [address] Aug, [facility] [place] [facility] [address] [id number] [place] [address] Aug, [facility] [place] [facility] [address] [id number] [place] [address] 06 Aug, 2012 [facility] [place] [facility] [address] [id number] [place] [address] 05 Aug, 2012 [facility] [place] [facility] [address] [id number] [place] [address] 05 Aug, 2012 [facility] [place] [facility] [address] [id number] [place] [address] 20 Aug, 2012 [facility] [place] [facility] [address] [id number] [place] [address] 14 Aug, 2012 [facility] [place] [facility] [address] [id number] [place] [address] 12 Aug, 2012 [facility] [place] [facility] [address] [id number] [place] [address] Aug, [facility] [place] [facility] [address] [id number] [place] [address] 29 Jul, 2012 [facility] [place] [facility] [address] [id number] [place] [address] 15 Jul, 2012 [facility] [place] [facility] [address] [id number] [place] [address] 08 Jul, 2012 [facility] [place] [facility] [address] [id number] [place] [address] 20 Jun, 2012 [facility] [place] [facility] [address] [id number] [place] [address] 18 Jun, 2012 [facility] [place] [facility] [address] [id number] [place] [address] 18 Jun, 2012 [facility] [place] [facility] [address] [id number] [place] [address] 18 Jun, 2012 [facility] [place] [facility] [address] [id number] [place] [address] 18 Jun, 2012 [facility] [place] [facility] [address] [id number] [place] [address] 14 Jun, 2012 [facility] [place] [facility] [address] [id number] [place] [address] 14 Jun, 2012 [facility] [place] [facility] [address] [id number] [place] [address] 13 Jun, 2012 [facility] [place] [facility] [address] [id number] [place] [address] 13 Jun, 2012 [facility] [place] [facility] [address] [id number] [place] [address] 11 Jun, 2012 [facility] [place] [facility] [address] [id number] [place] [address] 11 Jun, 2012 [facility] [place] [facility] [address] [id number] [place] [address] 11 Jun, 2012 [facility] [place] [facility] [address] [id number] [place] [address] 11 Jun, 2012 [facility] [place] [facility] [address] [id number] [place] [address] 07 Jun, 2012 [facility] [place] [facility] [address] [id number] [place] [address] Jun, [facility] [place] [facility] [address] [id number] [place] [address] Jun, [facility] [place] [facility] [address] [id number] [place] [address] Jun, [facility] [place] [facility] [address] [id number] [place] [address] Jun, [facility] [place] [facility] [address] [id number] [place] [address] Jun, [facility] [place] [facility] [address] [id number] [place] [address] Jun, [facility] [place] [facility] [address] [id number] [place] [address] Jun, [facility] [place] [facility] [address] [id number] [place] [address] Jun, [facility] [place] [facility] [address] [id number] [place] [address] Jun, [facility] [place] [facility] [address] [id number] [place] [address] May, [facility] [place] [facility] [address] [id number] [place] [address] May, [facility] [place] [facility] [address] [id number] [place] [address] May, [facility] [place] [facility] [address] [id number] [place] [address] May, [facility] [place] [facility] [address] [id number] [place] [address] May, [facility] [place] [facility] [address] [id number] [place] [address] May, [facility] [place] [facility] [address] [id number] [place] [address] May, [facility] [place] [facility] [address] [id number] [place] [address] May, [facility] [place] [facility] [address] [facility] [id number] [place] [address] Apr, 2011 [facility] [place] [facility] [address] [id number] [place] [address] Apr, [facility] [place] [facility] [address] [id number] [place] [address] Apr, 2011 [facility] [place] [facility] [address] [id number] [place] [address] Apr, [facility] [place] [facility] [address] [facility] [id number] [place] [address] Apr, [facility] [place] [facility] [address] [id number] [place] [address] Apr, [facility] [place] [facility] [address] [id number] [place] [address] Apr, [facility] [place] [facility] [address] [id number] [place] [address] Apr, [facility] [place] [facility] [address] [id number] [place] [address] 09 Apr, 2012 [facility] [place] [facility] [address] [id number] [place] [address] 08 Apr, 2012 [facility] [place] [facility] [address] [id number] [place] [address] 04 Apr, 2012 [facility] [place] [facility] [address] [id number] [place] [address] 02 Apr, 2012 [facility] [place] [facility] [address] [id number] [place] [address] 19 Mar, 2011 [facility] [place] [facility] [address] [facility] [id number] [place] [address] 18 Sep, 2011 [facility] [place] [facility] [address] [id number] [place] [address] 12 Sep, 2011 [facility] [place] [facility] [address] [id number] [place] [address] 12 Mar, 2011 [facility] [place] [facility] [address] [facility] [id number] [place] [id number] Mar, [facility] [place] [facility] [address] [id number] [place] [id number] Mar, [facility] [place] [facility] [address] [id number] [place] [address] Mar, [facility] [place] [facility] [address] [id number] [place] [address] Jan, [facility] [place] [facility] [address] [id number] [place] [address] Jan, [facility] [place] [facility] [address] [id number] [place] [id number] Jan, [facility] [place] [facility] [address] [id number] [place] [address] , [place] [id number] Jan, [facility] [place] [facility] [address] [id number] [place] [address] Jan, [facility] [place] [facility] [address] [id number] [place] [address] Jan, [facility] [place] [facility] [address] [id number] [place] [address] Jan, [facility] [place] [facility] [address] [id number] [place] [address] Jan, [facility] [place] [facility] [address] [id number] [place] [address] Jan, [facility] [place] [facility] [address] [id number] [place] [address] Jan, [facility] [place] [facility] [address] [id number] [place] [address] Jan, [facility] [place] [facility] [address] [id number] [place] [address] Dec, [facility] [place] [facility] [address] [id number] [place] [address] Dec, [facility] [place] [facility] [address] [id number] [place] [address] Dec, [facility] [place] [facility] [address] [id number] [place] [address] 26 Jan, 2012 [facility] [place] [facility] [address] [id number] [place] [address] 20 Jan, 2012 [facility] [address] [id number] [place] [address] 19 Jan, 2012 [facility] [address] [id number] [place] [address] 18 Jan, 2012 [facility] [address] [id number] [place] [address] 17 Jan, 2012 [facility] [address] [facility] [id number] [place] [address] 16 Jan, 2012 [facility] [address] [id number] [place] [address] 13 Jan, 2012 [facility] [address] [id number] [place] [address] Dec, [facility] [address] [id number] [place] [address] Dec, [facility] [address] [id number] [place] [address] Dec, [facility] [address] [id number] [place] [address] Dec, [facility] [address] [id number] [place] [address] Dec, [facility] [address] [id number] [place] [address] Dec, [facility] [address] [id number] [place] [address] 15 Dec, 2011 [facility] [address] [id number] [place] [address] 06 Dec, 2011 [facility] [address] [id number] [place] [address] 05 Dec, 2011 [facility] [address] [id number] [place] [address] October, [facility] [address] [id number] [place] [address] October, [facility] [address] [id number] [place] [address] October, [facility] [address] [id number] [place] [address] October, [facility] [address] [id number] [place] [address] October, [facility] [address] [id number] [place] [address] October, [facility] [address] [id number] [place] [address] Oct, [facility] [address] [id number] [place] [address] Oct, [facility] [address] [id number] [place] [address] Oct, [facility] [address] [id number] [place] [address] Oct, [facility] [address] [id number] [place] [address] Oct, [facility] [address] [id number] [place] [address] Oct, [facility] [address] [id number] [place] [address] Oct, [facility] [address] [id number] [place] [address] Aug, [facility] [address] [id number] [place] [address] Aug, [facility] [address] [id number] [place] [address] Aug, [facility] [address] [id number] [place] [address] Aug, [facility] [address] [id number] [place] [address] Aug, [facility] [address] [id number] [place] [address] Aug, [facility] [address] [id number] [place] [address] Aug, [facility] [address] [id number] [place] [address] Aug, [facility] [address] [id number] [place] [address] Aug, [facility] [address] [id number] [place] [address] Jul, [facility] [address] [id number] [place] [address] Jul, [facility] [address] [id number] [place] [address] Jul, [facility] [id number] [place] [address] Jul, [facility] [address] [id number] [place] [address] Jun, [facility] [id number] [place] [address] Jun, [facility] [address] [id number] [place] [address] May, [facility] [id number] [place] [address] May, [facility] [address] [id number] [place] [address] May, [facility] [id number] [place] [address] May, [facility] [address] [id number] [place] [address] May, [facility] [address] [id number] [place] [address] Apr, [facility] [address] [id number] [place] [address] 28 Apr, 2011 [facility] [address] [id number] [place] [address] Apr, [facility] [address] [id number] [place] [address] Jan, [facility] [address] [id number] [place] [address] Dec, [facility] [id number] [place] [address] October, [facility] [id number] [place] [address] Jun, [facility] [id number] [place] [address] Apr, [facility] [address] [id number] [place] [address] Apr, [facility] [address] [id number] [place] [address] Apr, [facility] [address] [id number] [place] [address] Jun, IMMUNIZATIONS No Known Immunizations SOCIAL HISTORY [...]
--- OUTSIDE RECORDS SUMMARY | 2020-01-25 12:28 | XMS REPORT ---
Author Author Quang Mayereen Doctor Organization [facility] Address Unknown Phone Unavailable Care Team Providers Care Expansion Joint Finisher Name Role Phone Migration, Doctor Unavailable Unavailable PROBLEMS Type Condition ICD9-CM Code [id number] Code Onset Dates Condition S tatus SNOMED Code Problem Chronic hepatitis C without hepatic coma B18.2 Active 996404443 Problem Cannabis abuse F12.10 Active 31853 009 Problem Bipolar 1 disorder F31.9 Active 3 02683039 Problem Attention deficit hyperactivity disorder (ADHD), combi luciano type F90.2 Active 39906332 Problem Attention deficit R41.840 Active 76 213833 Problem Hot flashes due to menopause N95.1 A ctive 480468788 Problem H/O laminectomy Z98.89 Active 1616 66437 Problem Other chronic pain G89.29 Active 8 8281514 Problem Anxiety disorder, unspecified type F41.9 Active 306414088 Problem Bipolar disorder, in partial remission, most rec ent episode hypomanic F31.71 Active 089440560 ALLERGIES No Information ENCOUNTERS Encounter Location Date Diagnosis [place] [address] [address] Jul, [place] [address] [address] Jul, [place] [address] [address] Apr, [place] [address] [address] Mar, Hot flashes due to menopause N95.1 ; Anx iety disorder, unspecified type F41.9 ; Low back pain M54.5 and Encounter for immunization Z23 [facility] [address] [address] Dec, Other chronic pain G89.29 and Low back p ain M54.5 [place] [address] [address] October, [facility] [address] [address] October, [facility] [address] [address] October, [facility] [address] [address] October, Other chronic pain G89.29 and Chronic he patitis C without hepatic coma B18.2 [facility] [address] [address] Aug, Bipolar disorder, in partial remission, most recent episode hypomanic F31.71 ; Attention deficit hyperactivity disorder (ADHD), combined type F90.2 and Anxiety disorder, unspecified type F41.9 [facility] [address] [address] Aug, [facility] [address] [address] Aug, Bipolar disorder, in partial remission, most recent episode hypomanic F31.71 [facility] [address] [address] Aug, [facility] [address] [address] Aug, Bipolar disorder, in partial remission, most recent episode hypomanic F31.71 [facility] [address] [address] Aug, Bipolar disorder, in partial remission, most recent episode hypomanic F31.71 ; Attention deficit hyperactivity disorder (ADHD), combined type F90.2 and Anxiety disorder, unspecified type F41.9 [facility] [address] [address] Aug, Low back pain M54.5 and Pain in left wri st M25.532 [facility] [address] [address] Aug, [place] [id number] [address] Jun, [place] [address] [address] Apr, Bipolar disorder, in partial remission, most recent episode hypomanic F31.71 [place] [address] [address] Apr, [place] [address] [address] Apr, Bipolar disorder, in partial remission, most recent episode hypomanic F31.71 ; Attention deficit hyperactivity disorder (ADHD), combined type F90.2 ; Anxiety disorder, unspecified type F41.9 and Other oysterman (current) 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 Z79.899 [place] [address] [address] Apr, Bipolar disorder, in partial remission, most recent episode hypomanic F31.71 [place] [address] [address] Apr, Bipolar disorder, in partial remission, most recent episode hypomanic F31.71 [place] [address] [address] Mar, [place] [address] [address] Mar, Bipolar disorder, in partial remission, most recent episode hypomanic F31.71 ; Encounter for immunization Z23 and Low back pain M54.5 [place] [address] [address] Mar, Bipolar disorder, in partial remission, most recent episode hypomanic F31.71 [place] [address] [address] Mar, Bipolar disorder, in partial remission, most recent episode hypomanic F31.71 [place] [address] [address] Jan, Bipolar disorder, in partial remission, most recent episode hypomanic F31.71 [facility] [address] [id number] [place] [address] Jan, Bipolar disorder, in partial remission, most recent episode hypomanic F31.71 [facility] [address] [id number] [place] [address] Dec, Bipolar disorder, in partial remission, most recent episode hypomanic F31.71 [facility] [address] [place] [id number] [place] [address] Dec, Bipolar disorder, in partial remission, most recent episode hypomanic F31.71 ; Attention deficit hyperactivity disorder (ADHD), combined type F90.2 ; Anxiety disorder, unspecified type F41.9 and Other oysterman (current) 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 Z79.899 [facility] [address] [place] [id number] [place] [address] Dec, Bipolar disorder, in partial remission, most recent episode hypomanic F31.71 [facility] [address] [place] [id number] [place] [address] Dec, Bipolar disorder, in partial remission, most recent episode hypomanic F31.71 [facility] [address] [id number] [place] [address] October, Bipolar disorder, in partial remission, most recent episode hypomanic F31.71 [facility] [address] [place] [id number] [place] [address] October, [facility] [address] [id number] [place] [address] October, [facility] [address] [id number] [place] [address] Oct, Bipolar disorder, in partial remission, most recent episode hypomanic F31.71 ; Attention deficit hyperactivity disorder (ADHD), combined type F90.2 ; Anxiety disorder, unspecified type F41.9 and Encounter for drug screening Z02.83 [facility] [address] [place] [id number] [place] [address] Oct, Bipolar disorder, in partial remission, most recent episode hypomanic F31.71 [facility] [address] [address] Oct, Bipolar disorder, in partial remission, most recent episode hypomanic F31.71 [facility] [address] [place] [id number] [place] [address] Aug, Bipolar disorder, in partial remission, most recent episode hypomanic F31.71 [facility] [address] [address] Aug, Bipolar disorder, in partial remission, most recent episode hypomanic F31.71 [facility] [address] [address] Aug, Bipolar disorder, in partial remission, most recent episode hypomanic F31.71 [place] [address] [address] Jul, Bipolar disorder, in partial remission, most recent episode hypomanic F31.71 ; Attention deficit hyperactivity disorder (ADHD), combined type F90.2 and Anxiety disorder, unspecified type F41.9 [facility] [address] [address] Jul, Bipolar disorder, in partial remission, most recent episode hypomanic F31.71 [place] [address] [address] Jun, Bipolar disorder, in partial remission, most recent episode hypomanic F31.71 [facility] [address] [place] [id number] [place] [address] May, Bipolar disorder, in partial remission, most recent episode hypomanic F31.71 [facility] [address] [address] May, Bipolar disorder, in partial remission, most recent episode hypomanic F31.71 [facility] [address] [address] Apr, [place] [id number] [place] [id number] [place] [address] Apr, Bipolar disorder, in partial remission, most recent episode hypomanic F31.71 ; Attention deficit hyperactivity disorder (ADHD), combined type F90.2 ; Anxiety disorder, unspecified type F41.9 and Cannabis abuse F12.10 [facility] [address] [place] [id number] [place] [address] Apr, Attention deficit hyperactivity disorder (ADHD), combined type F90.2 [facility] [address] [address] Mar, Attention deficit hyperactivity disorder (ADHD), combined type F90.2 [place] [address] [address] Mar, Anxiety disorder, unspecified type F41.9 [facility] [address] [address] Jan, Attention deficit hyperactivity disorder (ADHD), combined type F90.2 [facility] [address] [address] Jan, Anxiety disorder, unspecified type F41.9 [place] [address] [address] Jan, Other chronic pain G89.29 ; Chronic hepa titis C without hepatic coma B18.2 and Bipolar 1 disorder F31.9 [facility] [address] [address] Dec, Attention deficit hyperactivity disorder (ADHD), combined type F90.2 [facility] [address] [address] Dec, Bipolar disorder, in partial remission, most recent episode hypomanic F31.71 ; Attention deficit hyperactivity disorder (ADHD), combined type F90.2 and Anxiety disorder, unspecified type F41.9 [facility] [address] [place] [id number] [place] [address] Dec, Bipolar disorder, in partial remission, most recent episode hypomanic F31.71 ; Attention deficit hyperactivity disorder (ADHD), combined type F90.2 and Anxiety disorder, unspecified type F41.9 [facility] [address] [address] Dec, Bipolar 1 disorder F31.9 and Attention d eficit R41.840 [facility] [address] [address] Oct, Other chronic pain G89.29 ; Alopecia L65 .9 and Screening, lipid Z13.220 [facility] [address] [address] Oct, [facility] [address] [address] Aug, [facility] [address] [address] Aug, Eustachian tube dysfunction, right H69.8 1 ; Vertigo R42 and Other chronic pain G89.29 [facility] [address] [address] Aug, [facility] [address] [address] Jun, [facility] [address] [address] Jun, Low back pain M54.5 and Other chronic pa in G89.29 [facility] [address] [address] Jun, [facility] [address] [address] May, [facility] [address] [address] Jan, [facility] [address] [address] Dec, [facility] [address] [address] Dec, [facility] [address] [address] Jun, [facility] [address] [address] Apr, Eustachian tube dysfunction, unspecified laterality H69.80 ; Hot flashes N95.1 and Encounter for immunization Z23 [facility] [address] [address] Jan, [facility] [address] [address] Jan, [facility] [address] [address] Jan, [facility] [address] [address] Jan, [facility] [address] [address] Jan, Encounter to establish care V65.8 ; Bipo lar 1 disorder 296.7 ; Abdominal pain 789.00 ; Constipation 564.00 ; Hard of hearing 389.9 and Drug abuse 305.90 [facility] [address] [address] Dec, [facility] [address] [address] October, [facility] [address] [address] October, [facility] [address] [address] Oct, [facility] [address] [address] Oct, [facility] [address] [address] Oct, [facility] [address] [address] Aug, [facility] [address] [id number] [place] [address] Aug, [facility] [address] [id number] [place] [address] Aug, [facility] [address] [id number] [place] [address] Aug, 2014 [facility] [address] [id number] [place] [address] Aug, 2014 [facility] [address] [id number] [place] [address] Aug, 2014 [facility] [address] [id number] [place] [address] Aug, 2014 [facility] [address] [id number] [place] [address] Aug, 2014 [facility] [address] [id number] [place] [address] Aug, 2014 [facility] [address] [id number] [place] [address] Aug, 2014 [facility] [address] [id number] [place] [address] Aug, 2014 [facility] [address] [id number] [place] [address] Aug, 2014 [facility] [address] [id number] [place] [address] Aug, 2014 [facility] [address] [id number] [place] [address] Aug, 2014 [facility] [address] [id number] [place] [address] Aug, [facility] [address] [id number] [place] [address] Jul, [facility] [address] [id number] [place] [address] Jul, [facility] [address] [id number] [place] [address] Jul, [facility] [address] [facility] [id number] [place] [address] Jul, [facility] [address] [id number] [place] [address] Jul, [facility] [address] [id number] [place] [address] Jul, [facility] [address] [id number] [place] [address] Jul, [facility] [address] [id number] [place] [address] Jul, [facility] [address] [id number] [place] [address] Jun, [facility] [address] [id number] [place] [address] Jun, [facility] [address] [id number] [place] [address] Jun, [facility] [address] [id number] [place] [address] Jun, [facility] [address] [id number] [place] [address] Jun, [facility] [address] [id number] [place] [address] Jun, [facility] [address] [id number] [place] [address] 15 Jun, 2014 [facility] [address] [id number] [place] [address] Jun, [facility] [address] [id number] [place] [address] Jun, [facility] [address] [id number] [place] [address] Jun, [facility] [address] [id number] [place] [address] Jun, [facility] [address] [id number] [place] [address] May, [facility] [address] [id number] [place] [address] May, [facility] [address] [id number] [place] [address] May, [facility] [address] [id number] [place] [address] May, [facility] [address] [id number] [place] [address] May, [facility] [address] [id number] [place] [address] May, [facility] [address] [id number] [place] [address] May, [facility] [address] [id number] [place] [address] Apr, [facility] [address] [id number] [place] [address] Apr, [facility] [address] [id number] [place] [address] Apr, [facility] [address] [id number] [place] [address] Apr, [facility] [address] [id number] [place] [address] Apr, [facility] [address] [id number] [place] [address] Apr, [facility] [address] [id number] [place] [address] 29 Mar, 2014 [facility] [address] [id number] [place] [address] 29 Mar, 2014 [facility] [address] [id number] [place] [address] Mar, [facility] [address] [id number] [place] [address] Mar, [facility] [address] [facility] [id number] [place] [address] Mar, [facility] [address] [facility] [id number] [facility] [place] [address] Mar, [facility] [address] [id number] [place] [address] Jan, [facility] [address] [facility] [id number] [facility] [place] [address] Jan, [facility] [address] [facility] [id number] [place] [address] Jan, [facility] [address] [id number] [place] [address] Jan, [facility] [address] [id number] [place] [address] Dec, [facility] [address] [id number] [place] [address] Dec, [facility] [address] [id number] [place] [address] Dec, [facility] [address] [id number] [place] [address] Dec, [facility] [address] [id number] [place] [address] Dec, [facility] [address] [id number] [place] [address] Dec, [facility] [address] [facility] [id number] [place] [address] Dec, [facility] [address] [facility] [id number] [place] [address] Dec, [facility] [address] [id number] [place] [address] Dec, [facility] [address] [id number] [place] [address] Dec, [facility] [address] [id number] [facility] [place] [address] Dec, [facility] [address] [id number] [place] [address] Dec, [facility] [address] [id number] [place] [address] October, [facility] [address] [id number] [place] [address] October, [facility] [address] [id number] [place] [address] October, [facility] [address] [id number] [place] [address] October, [facility] [address] [id number] [place] [address] October, [facility] [address] [id number] [place] [address] October, [facility] [address] [id number] [place] [address] Oct, [facility] [address] [id number] [place] [address] Oct, [facility] [address] [id number] [place] [address] Oct, [facility] [address] [id number] [place] [address] Oct, [facility] [address] [id number] [place] [address] Oct, [facility] [address] [id number] [place] [address] Oct, [facility] [address] [id number] [place] [address] Oct, [facility] [address] [id number] [place] [address] Oct, [facility] [address] [id number] [place] [address] Oct, [facility] [address] [id number] [place] [address] Oct, [facility] [address] [id number] [place] [address] Oct, [facility] [address] [id number] [place] [address] 08 Oct, 2013 [facility] [address] [id number] [place] [address] Aug, [facility] [address] [id number] [place] [address] Aug, [facility] [address] [id number] [place] [address] Aug, [facility] [address] [id number] [place] [address] Aug, [facility] [address] [id number] [place] [address] Aug, [facility] [address] [id number] [place] [address] Aug, [facility] [address] [id number] [place] [address] Aug, [facility] [address] [id number] [place] [address] Aug, [facility] [address] [id number] [place] [address] Aug, [facility] [address] [id number] [place] [address] Aug, [facility] [address] [id number] [place] [address] Aug, [facility] [address] [id number] [place] [address] Aug, [facility] [address] [id number] [place] [address] Aug, [facility] [address] [id number] [place] [address] 20 Aug, 2013 [facility] [address] [id number] [place] [address] Aug, [facility] [address] [id number] [place] [address] Aug, [facility] [address] [id number] [place] [address] Aug, [facility] [address] [id number] [place] [address] Aug, [facility] [address] [id number] [place] [address] Aug, [facility] [address] [id number] [place] [address] 07 Aug, 2013 [facility] [address] [id number] [place] [address] Aug, [facility] [address] [id number] [place] [address] Aug, [facility] [address] [id number] [place] [address] Aug, [facility] [address] [id number] [place] [address] Aug, [facility] [address] [id number] [place] [address] Aug, [facility] [address] [id number] [place] [address] Jul, [facility] [address] [id number] [place] [address] Jul, [facility] [id number] [place] [address] Jul, [facility] [address] [id number] [place] [address] Jul, [facility] [id number] [place] [address] Jul, [facility] [address] [id number] [place] [address] Jul, [facility] [address] [id number] [place] [address] Jul, [facility] [address] [id number] [place] [address] Jul, [facility] [address] [id number] [place] [address] Jul, [facility] [address] [id number] [place] [address] Jul, [facility] [address] [id number] [place] [address] Jul, [facility] [address] [id number] [place] [address] Jul, [facility] [address] [id number] [place] [address] Jul, [facility] [address] [id number] [place] [address] Jul, [facility] [address] [id number] [place] [address] Jul, [facility] [address] [id number] [place] [address] Jul, [facility] [address] [id number] [place] [address] Jul, [facility] [address] [id number] [place] [address] Jul, [facility] [address] [id number] [place] [address] Jul, [facility] [address] [id number] [place] [address] Jul, [facility] [place] [facility] [address] [id number] [place] [address] Jun, [facility] [place] [facility] [address] [id number] [place] [address] 31 Jun, 2013 [facility] [place] [facility] [address] [facility] [id number] [place] [address] Jun, [facility] [place] [facility] [address] [facility] [id number] [place] [address] Jun, [facility] [place] [facility] [address] [id number] [place] [address] Jun, [facility] [place] [facility] [address] [id number] [place] [address] Jun, [facility] [place] [facility] [address] [facility] [id number] [place] [address] Jun, [facility] [place] [facility] [address] [id number] [place] [address] Jun, [facility] [place] [facility] [address] [id number] [place] [address] Jun, [facility] [place] [facility] [address] [id number] [place] [address] Jun, [facility] [place] [facility] [address] [id number] [place] [address] Jun, [facility] [place] [facility] [address] [id number] [place] [address] Jun, [facility] [place] [facility] [address] [id number] [place] [address] Jun, [facility] [place] [facility] [address] [id number] [place] [address] Jun, [facility] [place] [facility] [address] [id number] [place] [address] Jun, [facility] [place] [facility] [address] [id number] [place] [address] 18 Jun, 2013 [facility] [place] [facility] [address] [id number] [place] [address] 18 Jun, 2013 [facility] [place] [facility] [address] [id number] [place] [address] 17 Jun, 2013 [facility] [place] [facility] [address] [id number] [place] [address] 17 Jun, 2013 [facility] [place] [facility] [address] [id number] [place] [address] Jun, [facility] [place] [facility] [address] [id number] [place] [address] Jun, [facility] [place] [facility] [address] [id number] [place] [address] Jun, [facility] [place] [facility] [address] [id number] [place] [address] Jun, [facility] [place] [facility] [address] [id number] [place] [address] Jun, [facility] [place] [facility] [address] [id number] [place] [address] Jun, [facility] [place] [facility] [address] [id number] [place] [address] Jun, [facility] [place] [facility] [address] [id number] [place] [address] Jun, [facility] [place] [facility] [address] [id number] [place] [address] May, [facility] [place] [facility] [address] [id number] [place] [address] May, [facility] [place] [facility] [address] [id number] [place] [address] May, [facility] [place] [facility] [address] [id number] [place] [address] May, [facility] [place] [facility] [address] [id number] [place] [address] May, [facility] [place] [facility] [id number] [place] [address] May, [facility] [place] [facility] [address] [id number] [place] [address] Apr, [facility] [place] [facility] [address] [id number] [place] [address] Apr, [facility] [place] [facility] [address] [id number] [place] [address] 30 Apr, 2012 [facility] [place] [facility] [address] [id number] [place] [address] 30 Apr, 2012 [facility] [place] [facility] [address] [id number] [place] [address] Apr, 2012 [facility] [place] [facility] [address] [id number] [place] [address] 15 Apr, 2013 [facility] [place] [facility] [address] [id number] [place] [address] 15 Apr, 2013 [facility] [place] [facility] [address] [id number] [place] [address] Apr, [facility] [place] [facility] [address] [id number] [place] [address] 26 Mar, 2012 [facility] [place] [facility] [address] [id number] [place] [address] 24 Mar, 2012 [facility] [place] [facility] [address] [id number] [place] [address] 17 Mar, 2012 [facility] [place] [facility] [address] [id number] [place] [address] 17 Mar, 2012 [facility] [place] [facility] [address] [id number] [place] [address] 11 Mar, 2012 [facility] [place] [facility] [address] [id number] [place] [address] 10 Mar, 2012 [facility] [place] [facility] [address] [id number] [place] [address] 05 Sep, 2012 [facility] [place] [facility] [address] [id number] [place] [address] 04 Mar, 2012 [facility] [place] [facility] [address] [id number] [place] [address] 20 Jan, 2013 [facility] [place] [facility] [address] [id number] [place] [address] 19 Jan, 2013 [facility] [place] [facility] [address] [id number] [place] [address] 14 Jan, 2013 [facility] [place] [facility] [address] [facility] [id number] [facility] [place] [address] 12 Jan, 2013 [facility] [place] [facility] [address] [facility] [facility] [id number] [facility] [place] [address] Jan, [facility] [place] [facility] [address] [id number] [facility] [place] [address] 05 Jan, 2013 [facility] [place] [facility] [address] [facility] [id number] [place] [address] Dec, [facility] [place] [facility] [address] [facility] [facility] [id number] [place] [address] 24 Dec, 2012 [facility] [place] [facility] [address] [facility] [id number] [place] [address] Dec, [facility] [place] [facility] [address] [id number] [facility] [place] [address] Dec, [facility] [place] [facility] [address] [id number] [facility] [place] [address] 18 Dec, 2012 [facility] [place] [facility] [address] [facility] [id number] [facility] [place] [address] 17 Dec, 2012 [facility] [place] [facility] [address] [id number] [facility] [place] [address] 16 Dec, 2012 [facility] [place] [facility] [address] [id number] [place] [address] 16 Dec, 2012 [facility] [place] [facility] [address] [id number] [facility] [place] [address] 15 Dec, 2012 [facility] [place] [facility] [address] [facility] [facility] [id number] [facility] [place] [address] 10 Dec, 2012 [facility] [place] [facility] [address] [id number] [facility] [place] [address] 28 Dec, 2012 [facility] [place] [facility] [address] [facility] [id number] [facility] [place] [address] Dec, [facility] [place] [facility] [address] [id number] [facility] [place] [address] Dec, [facility] [place] [facility] [address] [id number] [facility] [place] [address] 17 Dec, 2012 [facility] [place] [facility] [address] [id number] [place] [address] Dec, [facility] [place] [facility] [address] [id number] [place] [address] Dec, [facility] [place] [facility] [address] [id number] [place] [address] October, [facility] [place] [facility] [address] [id number] [facility] [place] [address] October, [facility] [place] [facility] [address] [id number] [facility] [place] [address] October, [facility] [place] [facility] [address] [id number] [place] [address] October, [facility] [place] [facility] [address] [id number] [place] [address] October, [facility] [place] [facility] [address] [id number] [place] [address] October, [facility] [place] [facility] [address] [id number] [place] [address] October, [facility] [place] [facility] [address] [id number] [place] [address] Oct, [facility] [place] [facility] [address] [id number] [place] [address] Oct, [facility] [place] [facility] [address] [id number] [place] [address] 24 Oct, 2012 [facility] [place] [facility] [address] [id number] [place] [address] Oct, [facility] [place] [facility] [address] [id number] [place] [address] Oct, [facility] [place] [facility] [address] [id number] [place] [address] Oct, [facility] [place] [facility] [address] [id number] [place] [address] Oct, [facility] [address] [id number] [place] [address] 15 Oct, 2012 [facility] [address] [id number] [place] [address] Oct, [facility] [place] [facility] [address] [id number] [place] [address] Oct, [facility] [place] [facility] [address] [id number] [place] [address] Oct, [facility] [place] [facility] [address] [id number] [place] [address] Oct, [facility] [address] [id number] [place] [address] Aug, [facility] [place] [facility] [address] [id number] [place] [address] Aug, [facility] [place] [facility] [address] [id number] [place] [address] Aug, [facility] [place] [facility] [address] [id number] [place] [address] Aug, [facility] [place] [facility] [address] [id number] [place] [address] 05 Aug, 2012 [facility] [place] [facility] [address] [id number] [place] [address] Aug, [facility] [place] [facility] [address] [id number] [place] [address] Aug, [facility] [place] [facility] [address] [id number] [place] [address] 14 Aug, 2012 [facility] [place] [facility] [address] [id number] [place] [address] Aug, [facility] [place] [facility] [address] [id number] [place] [address] Aug, [facility] [place] [facility] [address] [id number] [place] [address] Jul, [facility] [place] [facility] [address] [id number] [place] [address] 15 Jul, 2012 [facility] [place] [facility] [address] [id number] [place] [address] 08 Jul, 2012 [facility] [place] [facility] [address] [id number] [place] [address] 20 Jun, 2012 [facility] [place] [facility] [address] [id number] [place] [address] 18 Jun, 2012 [facility] [place] [facility] [address] [id number] [place] [address] 18 Jun, 2012 [facility] [place] [facility] [address] [id number] [place] [address] 18 Jun, 2012 [facility] [place] [facility] [address] [id number] [place] [address] 18 Jun, 2012 [facility] [place] [facility] [address] [id number] [place] [address] 14 Jun, 2012 [facility] [place] [facility] [address] [id number] [place] [address] 14 Jun, 2012 [facility] [place] [facility] [address] [id number] [place] [address] 13 Jun, 2012 [facility] [place] [facility] [address] [id number] [place] [address] 13 Jun, 2012 [facility] [place] [facility] [address] [id number] [place] [address] 11 Jun, 2012 [facility] [place] [facility] [address] [id number] [place] [address] 11 Jun, 2012 [facility] [place] [facility] [address] [id number] [place] [address] 11 Jun, 2012 [facility] [place] [facility] [address] [id number] [place] [address] 11 Jun, 2012 [facility] [place] [facility] [address] [id number] [place] [address] 07 Jun, 2012 [facility] [place] [facility] [address] [id number] [place] [address] 07 Jun, 2012 [facility] [place] [facility] [address] [id number] [place] [address] Jun, [facility] [place] [facility] [address] [id number] [place] [address] Jun, [facility] [place] [facility] [address] [id number] [place] [address] Jun, [facility] [place] [facility] [address] [id number] [place] [address] Jun, [facility] [place] [facility] [address] [id number] [place] [address] Jun, [facility] [place] [facility] [address] [id number] [place] [address] Jun, [facility] [place] [facility] [address] [id number] [place] [address] Jun, [facility] [place] [facility] [address] [id number] [place] [address] Jun, [facility] [place] [facility] [address] [id number] [place] [address] May, [facility] [place] [facility] [address] [id number] [place] [address] May, [facility] [place] [facility] [address] [id number] [place] [address] May, [facility] [place] [facility] [address] [id number] [place] [address] May, [facility] [place] [facility] [address] [id number] [place] [address] May, [facility] [place] [facility] [address] [id number] [place] [address] May, [facility] [place] [facility] [address] [id number] [place] [address] May, [facility] [place] [facility] [address] [id number] [place] [address] May, [facility] [place] [facility] [address] [id number] [place] [address] 30 Apr, 2011 [facility] [place] [facility] [address] [id number] [place] [address] 30 Apr, 2011 [facility] [place] [facility] [address] [id number] [place] [address] 29 Apr, 2011 [facility] [place] [facility] [address] [id number] [place] [address] Apr, 2011 [facility] [place] [facility] [address] [id number] [place] [address] Apr, [facility] [place] [facility] [address] [id number] [place] [address] Apr, [facility] [place] [facility] [address] [id number] [place] [address] Apr, [facility] [place] [facility] [address] [id number] [place] [address] Apr, [facility] [place] [facility] [address] [id number] [place] [address] Apr, [facility] [place] [facility] [address] [id number] [place] [address] 08 Apr, 2012 [facility] [place] [facility] [address] [id number] [place] [address] 04 Apr, 2012 [facility] [place] [facility] [address] [id number] [place] [address] 02 Apr, 2012 [facility] [place] [facility] [address] [id number] [place] [address] 19 Sep, 2011 [facility] [place] [facility] [address] [id number] [place] [address] 18 Sep, 2011 [facility] [place] [facility] [address] [id number] [place] [address] 12 Sep, 2011 [facility] [place] [facility] [address] [id number] [place] [address] 12 Sep, 2011 [facility] [place] [facility] [address] [facility] [id number] [place] [id number] 12 Mar, 2011 [facility] [place] [facility] [address] [facility] [id number] [place] [id number] Mar, [facility] [place] [facility] [address] [id number] [place] [address] Mar, [facility] [place] [facility] [address] [id number] [place] [address] Jan, [facility] [place] [facility] [address] [id number] [place] [address] Jan, [facility] [place] [facility] [address] [id number] [place] [id number] Jan, [facility] [place] [facility] [address] [id number] [place] [id number] Jan, [facility] [place] [facility] [address] [id number] [place] [address] Jan, [facility] [place] [facility] [address] [id number] [place] [address] Jan, [facility] [place] [facility] [address] [id number] [place] [address] Jan, [facility] [place] [facility] [address] [id number] [place] [address] Jan, [facility] [place] [facility] [address] [id number] [place] [address] Jan, [facility] [place] [facility] [address] [id number] [place] [address] Jan, [facility] [place] [facility] [address] [id number] [place] [address] Jan, [facility] [place] [facility] [address] [id number] [place] [address] Dec, [facility] [place] [facility] [address] [id number] [place] [address] Dec, [facility] [place] [facility] [address] [id number] [place] [address] Dec, [facility] [place] [facility] [address] [id number] [place] [address] Dec, [facility] [place] [facility] [address] [id number] [place] [address] 20 Jan, 2012 [facility] [place] [facility] [address] [id number] [facility] [place] [address] 19 Jan, 2012 [facility] [place] [facility] [address] [id number] [place] [address] 18 Jan, 2012 [facility] [place] [facility] [address] [id number] [facility] [place] [address] 17 Jan, 2012 [facility] [place] [facility] [address] [id number] [place] [address] 16 Jan, 2012 [facility] [place] [facility] [address] [id number] [place] [address] Dec, [facility] [place] [facility] [address] [id number] [place] [address] Dec, [facility] [place] [facility] [address] [id number] [place] [address] Dec, [facility] [place] [facility] [address] [id number] [place] [address] Dec, [facility] [place] [facility] [address] [id number] [place] [address] Dec, [facility] [address] [id number] [place] [address] Dec, [facility] [address] [id number] [place] [address] Dec, [facility] [address] [id number] [place] [address] 15 Dec, 2011 [facility] [address] [id number] [place] [address] Dec, [facility] [address] [id number] [place] [address] Dec, [facility] [address] [id number] [place] [address] October, [facility] [address] [id number] [place] [address] October, [facility] [address] [id number] [place] [address] October, [facility] [address] [id number] [place] [address] October, [facility] [address] [id number] [place] [address] October, [facility] [address] [id number] [place] [address] October, [facility] [address] [id number] [place] [address] Oct, [facility] [address] [id number] [place] [address] Oct, [facility] [address] [id number] [place] [address] Oct, [facility] [address] [id number] [place] [address] Oct, [facility] [address] [id number] [place] [address] Oct, [facility] [address] [id number] [place] [address] Oct, [facility] [address] [id number] [place] [address] Oct, [facility] [address] [id number] [place] [address] Aug, [facility] [address] [id number] [place] [address] Aug, [facility] [address] [id number] [place] [address] Aug, [facility] [address] [id number] [place] [address] Aug, [facility] [address] [id number] [place] [address] 05 Sep, 2011 [facility] [address] [id number] [place] [address] Aug, [facility] [address] [id number] [place] [address] Aug, [facility] [address] [id number] [place] [address] Aug, [facility] [address] [id number] [place] [address] Aug, [facility] [address] [id number] [place] [address] Jul, [facility] [address] [id number] [place] [address] Jul, [facility] [address] [id number] [place] [address] Jul, [facility] [address] [id number] [place] [address] Jul, [facility] [address] [id number] [place] [address] Jun, [facility] [address] [id number] [place] [address] Jun, [facility] [id number] [place] [address] May, [facility] [address] [id number] [place] [address] May, [facility] [id number] [place] [address] May, [facility] [address] [id number] [place] [address] May, [facility] [address] [id number] [place] [address] May, [facility] [address] [id number] [place] [address] Apr, [facility] [id number] [place] [address] Apr, [facility] [address] [id number] [place] [address] 10 Apr, 2011 [facility] [address] [id number] [place] [address] Jan, [facility] [address] [id number] [place] [address] Dec, [facility] [address] [id number] [place] [address] October, [facility] [id number] [place] [address] Jun, [facility] [id number] [place] [address] Apr, [facility] [address] [id number] [place] [address] Apr, [facility] [address] [id number] [place] [address] Apr, [facility] [address] [id number] [place] [address] Jun, IMMUNIZATIONS No Known Immunizations SOCIAL HISTORY [...]
--- OUTSIDE RECORDS SUMMARY | 2020-01-25 12:29 | XMS REPORT ---
Author Author Ana Iraheta Organization [facility] Address [address] [place] [address] Care Team Providers Care Wheel Fitter Name Role Phone MELISA Iraheta Unavailable PROBLEMS Type Condition ICD9-CM Code HTC56-HE Code Onset Dates Condition S tatus SNOMED Code Problem Chronic hepatitis C without hepatic coma B18.2 Active 992011889 Problem Cannabis abuse F12.10 Active 73209 009 Problem Bipolar 1 disorder F31.9 Active 3 81383382 Problem Attention deficit hyperactivity disorder (ADHD), combi luciano type F90.2 Active 76321861 Problem Attention deficit R41.840 Active 76 473127 Problem Hot flashes due to menopause N95.1 A ctive 281718791 Problem H/O laminectomy Z98.89 Active 1616 47441 Problem Other chronic pain G89.29 Active 8 8892656 Problem Anxiety disorder, unspecified type F41.9 Active 667823650 Problem Bipolar disorder, in partial remission, most rec ent episode hypomanic F31.71 Active 867268071 ALLERGIES No Information ENCOUNTERS Encounter Location Date Diagnosis [place] [address] [address] Jul, [facility] [address] [address] Jul, [facility] [address] [address] Apr, [place] [address] [address] Mar, Hot flashes due to menopause N95.1 ; Anx iety disorder, unspecified type F41.9 ; Low back pain M54.5 and Encounter for immunization Z23 [facility] [address] [address] Dec, Other chronic pain G89.29 and Low back p ain M54.5 [facility] [address] [address] October, [facility] [address] [address] October, [facility] [address] [address] October, [facility] [address] [address] October, Other chronic pain G89.29 and Chronic he patitis C without hepatic coma B18.2 [facility] [address] [address] Aug, Bipolar disorder, in partial remission, most recent episode hypomanic F31.71 ; Attention deficit hyperactivity disorder (ADHD), combined type F90.2 and Anxiety disorder, unspecified type F41.9 [facility] [address] [address] Aug, [facility] [address] [address] Aug, Bipolar disorder, in partial remission, most recent episode hypomanic F31.71 [facility] [address] [address] 14 Aug, 2018 [facility] [address] [address] Aug, Bipolar disorder, in partial remission, most recent episode hypomanic F31.71 [facility] [address] [address] Aug, Bipolar disorder, in partial remission, most recent episode hypomanic F31.71 ; Attention deficit hyperactivity disorder (ADHD), combined type F90.2 and Anxiety disorder, unspecified type F41.9 [facility] [address] [address] Aug, Low back pain M54.5 and Pain in left wri st M25.532 [facility] [address] [address] Aug, [facility] [address] [address] Jun, [facility] [address] [address] Apr, Bipolar disorder, in partial remission, most recent episode hypomanic F31.71 [place] [address] [address] Apr, [place] [address] [address] Apr, Bipolar disorder, in partial remission, most recent episode hypomanic F31.71 ; Attention deficit hyperactivity disorder (ADHD), combined type F90.2 ; Anxiety disorder, unspecified type F41.9 and Other residential (current) 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 Z79.899 [place] [address] [address] Apr, Bipolar disorder, in partial remission, most recent episode hypomanic F31.71 [place] [address] [address] Apr, Bipolar disorder, in partial remission, most recent episode hypomanic F31.71 [place] [address] [address] Mar, [place] [address] [address] Mar, Bipolar disorder, in partial remission, most recent episode hypomanic F31.71 ; Encounter for immunization Z23 and Low back pain M54.5 [place] [address] [address] Mar, Bipolar disorder, in partial remission, most recent episode hypomanic F31.71 [place] [address] [address] Mar, Bipolar disorder, in partial remission, most recent episode hypomanic F31.71 [facility] [address] [id number] [place] [address] Jan, Bipolar disorder, in partial remission, most recent episode hypomanic F31.71 [facility] [address] [id number] [place] [address] Jan, Bipolar disorder, in partial remission, most recent episode hypomanic F31.71 [facility] [address] [id number] [place] [address] Dec, Bipolar disorder, in partial remission, most recent episode hypomanic F31.71 [facility] [address] [id number] [place] [address] Dec, Bipolar disorder, in partial remission, most recent episode hypomanic F31.71 ; Attention deficit hyperactivity disorder (ADHD), combined type F90.2 ; Anxiety disorder, unspecified type F41.9 and Other medical terminologist (current) 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 Z79.899 [facility] [address] [place] [id number] [place] [address] Dec, Bipolar disorder, in partial remission, most recent episode hypomanic F31.71 [facility] [address] [id number] [place] [address] Dec, Bipolar disorder, in partial remission, most recent episode hypomanic F31.71 [facility] [address] [id number] [place] [address] October, Bipolar disorder, in partial remission, most recent episode hypomanic F31.71 [facility] [address] [id number] [place] [address] October, [facility] [address] [id number] [place] [address] October, [facility] [address] [id number] [place] [address] Oct, Bipolar disorder, in partial remission, most recent episode hypomanic F31.71 ; Attention deficit hyperactivity disorder (ADHD), combined type F90.2 ; Anxiety disorder, unspecified type F41.9 and Encounter for drug screening Z02.83 [facility] [address] [place] [id number] [place] [address] Oct, Bipolar disorder, in partial remission, most recent episode hypomanic F31.71 [facility] [address] [place] [id number] [place] [address] Oct, Bipolar disorder, in partial remission, most recent episode hypomanic F31.71 [facility] [address] [address] Aug, Bipolar disorder, in partial remission, most recent episode hypomanic F31.71 [facility] [address] [address] Aug, Bipolar disorder, in partial remission, most recent episode hypomanic F31.71 [place] [address] [place] [id number] [place] [address] Aug, Bipolar disorder, in partial remission, most recent episode hypomanic F31.71 [facility] [address] [place] [id number] [place] [address] Jul, Bipolar disorder, in partial remission, most recent episode hypomanic F31.71 ; Attention deficit hyperactivity disorder (ADHD), combined type F90.2 and Anxiety disorder, unspecified type F41.9 [facility] [address] [place] [id number] [place] [address] Jul, Bipolar disorder, in partial remission, most recent episode hypomanic F31.71 [facility] [address] [place] [id number] [place] [address] Jun, Bipolar disorder, in partial remission, most recent episode hypomanic F31.71 [place] [address] [place] [id number] [place] [address] May, Bipolar disorder, in partial remission, most recent episode hypomanic F31.71 [facility] [address] [place] [id number] [place] [address] May, Bipolar disorder, in partial remission, most recent episode hypomanic F31.71 [place] [address] [address] Apr, [place] [address] [address] Apr, Bipolar disorder, in partial remission, most recent episode hypomanic F31.71 ; Attention deficit hyperactivity disorder (ADHD), combined type F90.2 ; Anxiety disorder, unspecified type F41.9 and Cannabis abuse F12.10 [place] [address] [address] Apr, Attention deficit hyperactivity disorder (ADHD), combined type F90.2 [place] [address] [address] Mar, Attention deficit hyperactivity disorder (ADHD), combined type F90.2 [place] [address] [address] 14 Mar, 2017 Anxiety disorder, unspecified type F41.9 [place] [address] [address] Jan, Attention deficit hyperactivity disorder (ADHD), combined type F90.2 [place] [address] [address] Jan, Anxiety disorder, unspecified type F41.9 [place] [address] [address] Jan, Other chronic pain G89.29 ; Chronic hepa titis C without hepatic coma B18.2 and Bipolar 1 disorder F31.9 [place] [address] [address] Dec, Attention deficit hyperactivity disorder (ADHD), combined type F90.2 [place] [address] [address] Dec, Bipolar disorder, in partial remission, most recent episode hypomanic F31.71 ; Attention deficit hyperactivity disorder (ADHD), combined type F90.2 and Anxiety disorder, unspecified type F41.9 [place] [address] [address] Dec, Bipolar disorder, in partial remission, most recent episode hypomanic F31.71 ; Attention deficit hyperactivity disorder (ADHD), combined type F90.2 and Anxiety disorder, unspecified type F41.9 [facility] [address] [address] Dec, Bipolar 1 disorder F31.9 and Attention d eficit R41.840 [place] [address] [address] Oct, Other chronic pain G89.29 ; Alopecia L65 .9 and Screening, lipid Z13.220 [place] [address] [address] Oct, [place] [address] [address] Aug, [address] [address] Aug, Eustachian tube dysfunction, right H69.8 1 ; Vertigo R42 and Other chronic pain G89.29 [place] [address] [address] Aug, [place] [address] [address] Jun, [place] [address] [address] Jun, Low back pain M54.5 and Other chronic pa in G89.29 [place] [address] [address] Jun, [place] [address] [address] May, [facility] [address] [address] Jan, [place] [address] [address] Dec, [facility] [address] [address] Dec, [facility] [address] [address] Jun, [facility] [address] [address] Apr, Eustachian tube dysfunction, unspecified laterality H69.80 ; Hot flashes N95.1 and Encounter for immunization Z23 [facility] [address] [address] Jan, [facility] [address] [address] Jan, [facility] [address] [address] Jan, [facility] [address] [address] Jan, [facility] [address] [address] Jan, Encounter to establish care V65.8 ; Bipo lar 1 disorder 296.7 ; Abdominal pain 789.00 ; Constipation 564.00 ; Hard of hearing 389.9 and Drug abuse 305.90 [facility] [address] [address] Dec, [facility] [address] [address] October, [facility] [address] [address] October, [facility] [address] [address] Oct, [facility] [address] [address] Oct, [facility] [address] [address] Oct, [facility] [address] [id number] [place] [address] Aug, [facility] [address] [id number] [place] [address] Aug, [facility] [address] [id number] [place] [address] Aug, [facility] [address] [id number] [place] [address] Aug, 2014 [facility] [address] [id number] [place] [address] Aug, 2014 [facility] [address] [id number] [place] [address] Aug, 2014 [facility] [address] [id number] [place] [address] Aug, 2014 [facility] [address] [id number] [place] [address] Aug, 2014 [facility] [address] [id number] [place] [address] Aug, 2014 [facility] [address] [id number] [place] [address] Aug, 2014 [facility] [address] [id number] [place] [address] Aug, 2014 [facility] [address] [id number] [place] [address] Aug, 2014 [facility] [address] [id number] [place] [address] Aug, 2014 [facility] [address] [id number] [place] [address] Aug, 2014 [facility] [address] [id number] [place] [address] Aug, 2014 [facility] [address] [id number] [place] [address] Jul, [facility] [address] [id number] [place] [address] Jul, [facility] [address] [facility] [id number] [place] [address] Jul, [facility] [address] [id number] [place] [address] Jul, [facility] [address] [id number] [place] [address] Jul, [facility] [address] [id number] [place] [address] Jul, [facility] [address] [id number] [place] [address] Jul, [facility] [address] [id number] [place] [address] Jul, [facility] [address] [id number] [place] [address] Jun, [facility] [address] [id number] [place] [address] Jun, [facility] [address] [id number] [place] [address] Jun, [facility] [address] [id number] [place] [address] Jun, [facility] [address] [id number] [place] [address] Jun, [facility] [address] [id number] [place] [address] 15 Jun, 2014 [facility] [address] [id number] [place] [address] Jun, [facility] [address] [id number] [place] [address] Jun, [facility] [address] [id number] [place] [address] Jun, [facility] [address] [id number] [place] [address] Jun, [facility] [address] [id number] [place] [address] Jun, [facility] [address] [id number] [place] [address] May, [facility] [address] [id number] [place] [address] May, [facility] [address] [id number] [place] [address] May, [facility] [address] [id number] [place] [address] May, [facility] [address] [id number] [place] [address] May, [facility] [address] [id number] [place] [address] May, [facility] [address] [place] [id number] [place] [address] May, [facility] [address] [id number] [place] [address] Apr, [facility] [address] [id number] [place] [address] Apr, [facility] [address] [id number] [place] [address] Apr, [facility] [address] [id number] [place] [address] Apr, [facility] [address] [id number] [place] [address] Apr, [facility] [address] [id number] [place] [address] Apr, [facility] [address] [place] [id number] [place] [address] 29 Mar, 2014 [facility] [address] [id number] [place] [address] 29 Mar, 2014 [facility] [address] [id number] [place] [address] Mar, [facility] [address] [facility] [id number] [place] [address] Mar, [facility] [address] [facility] [id number] [place] [address] Mar, [facility] [address] [id number] [place] [address] Mar, [facility] [address] [facility] [id number] [place] [address] Jan, [facility] [address] [facility] [id number] [place] [address] Jan, [facility] [address] [id number] [place] [address] Jan, [facility] [address] [id number] [place] [address] Jan, [facility] [address] [id number] [place] [address] Dec, [facility] [address] [facility] [id number] [place] [address] Dec, [facility] [address] [id number] [place] [address] Dec, [facility] [address] [id number] [place] [address] Dec, [facility] [address] [id number] [place] [address] Dec, [facility] [address] [facility] [id number] [place] [address] Dec, [facility] [address] [id number] [place] [address] Dec, [facility] [address] [facility] [id number] [place] [address] Dec, [facility] [address] [id number] [place] [address] Dec, [facility] [address] [id number] [facility] [place] [address] Dec, [facility] [address] [id number] [place] [address] Dec, [facility] [address] [id number] [place] [address] Dec, [facility] [address] [id number] [place] [address] October, [facility] [address] [id number] [place] [address] October, [facility] [address] [id number] [place] [address] October, [facility] [address] [id number] [place] [address] October, [facility] [address] [id number] [place] [address] October, [facility] [address] [id number] [place] [address] October, [facility] [address] [id number] [place] [address] Oct, [facility] [address] [id number] [place] [address] Oct, [facility] [address] [id number] [place] [address] Oct, [facility] [address] [id number] [place] [address] Oct, [facility] [address] [id number] [place] [address] Oct, [facility] [address] [id number] [place] [address] Oct, [facility] [address] [id number] [place] [address] Oct, [facility] [address] [id number] [place] [address] Oct, [facility] [address] [id number] [place] [address] Oct, [facility] [address] [id number] [place] [address] Oct, [facility] [address] [id number] [place] [address] Oct, [facility] [address] [id number] [place] [address] Oct, [facility] [address] [id number] [place] [address] Aug, [facility] [address] [id number] [place] [address] Aug, [facility] [address] [id number] [place] [address] Aug, [facility] [address] [id number] [place] [address] Aug, [facility] [address] [id number] [place] [address] Aug, [facility] [address] [id number] [place] [address] Aug, [facility] [address] [id number] [place] [address] Aug, [facility] [address] [id number] [place] [address] Aug, [facility] [address] [id number] [place] [address] Aug, [facility] [address] [id number] [place] [address] Aug, [facility] [address] [id number] [place] [address] Aug, [facility] [address] [id number] [place] [address] Aug, [facility] [address] [id number] [place] [address] Aug, [facility] [address] [id number] [place] [address] Aug, [facility] [address] [id number] [place] [address] Aug, [facility] [address] [id number] [place] [address] Aug, [facility] [address] [id number] [place] [address] Aug, [facility] [address] [id number] [place] [address] Aug, [facility] [address] [id number] [place] [address] 07 Aug, 2013 [facility] [address] [id number] [place] [address] Aug, [facility] [address] [id number] [place] [address] Aug, [facility] [address] [id number] [place] [address] Aug, [facility] [address] [id number] [place] [address] Aug, [facility] [address] [id number] [place] [address] Aug, [facility] [address] [id number] [place] [address] Aug, [facility] [address] [id number] [place] [address] Jul, [facility] [address] [id number] [place] [address] Jul, [facility] [address] [id number] [place] [address] Jul, [facility] [id number] [place] [address] Jul, [facility] [address] [id number] [place] [address] Jul, [facility] [address] [id number] [place] [address] Jul, [facility] [address] [id number] [place] [address] Jul, [facility] [address] [id number] [place] [address] Jul, [facility] [address] [facility] [id number] [place] [address] Jul, [facility] [place] [facility] [address] [id number] [place] [address] Jul, [facility] [place] [facility] [address] [id number] [place] [address] Jul, [facility] [place] [facility] [address] [id number] [place] [address] Jul, [facility] [place] [facility] [address] [id number] [place] [address] Jul, [facility] [place] [facility] [address] [id number] [place] [address] Jul, [facility] [place] [facility] [address] [id number] [place] [address] Jul, [facility] [place] [facility] [address] [id number] [place] [address] Jul, [facility] [place] [facility] [address] [id number] [place] [address] Jul, [facility] [place] [facility] [address] [id number] [place] [address] Jul, [facility] [place] [facility] [address] [id number] [place] [address] Jul, [facility] [place] [facility] [address] [id number] [place] [address] Jul, [facility] [place] [facility] [address] [id number] [place] [address] Jun, [facility] [place] [facility] [address] [facility] [id number] [place] [address] Jun, [facility] [place] [facility] [address] [facility] [id number] [place] [address] Jun, [facility] [place] [facility] [address] [id number] [place] [address] Jun, [facility] [place] [facility] [address] [id number] [place] [address] Jun, [facility] [place] [facility] [address] [facility] [id number] [place] [address] Jun, [facility] [place] [facility] [address] [id number] [place] [address] Jun, [facility] [place] [facility] [address] [id number] [place] [address] Jun, [facility] [place] [facility] [address] [id number] [place] [address] Jun, [facility] [place] [facility] [address] [id number] [place] [address] Jun, [facility] [place] [facility] [address] [id number] [place] [address] Jun, [facility] [place] [facility] [address] [id number] [place] [address] Jun, [facility] [place] [facility] [address] [id number] [place] [address] Jun, [facility] [place] [facility] [address] [id number] [place] [address] Jun, [facility] [place] [facility] [address] [id number] [place] [address] Jun, [facility] [place] [facility] [address] [id number] [place] [address] Jun, [facility] [place] [facility] [address] [id number] [place] [address] Jun, [facility] [place] [facility] [address] [id number] [place] [address] 17 Jun, 2013 [facility] [place] [facility] [address] [id number] [place] [address] 17 Jun, 2013 [facility] [place] [facility] [address] [id number] [place] [address] Jun, [facility] [place] [facility] [address] [id number] [place] [address] Jun, [facility] [place] [facility] [address] [id number] [place] [address] Jun, [facility] [place] [facility] [address] [id number] [place] [address] Jun, [facility] [place] [facility] [address] [id number] [place] [address] Jun, [facility] [place] [facility] [address] [id number] [place] [address] Jun, [facility] [place] [facility] [address] [id number] [place] [address] Jun, [facility] [place] [facility] [address] [id number] [place] [address] Jun, [facility] [place] [facility] [address] [id number] [place] [address] May, [facility] [place] [facility] [address] [id number] [place] [address] May, [facility] [place] [facility] [address] [id number] [place] [address] May, [facility] [place] [facility] [address] [id number] [place] [address] May, [facility] [place] [facility] [id number] [place] [address] May, [facility] [place] [facility] [address] [id number] [place] [address] May, [facility] [place] [facility] [address] [id number] [place] [address] Apr, [facility] [place] [facility] [address] [id number] [place] [address] 30 Apr, 2012 [facility] [place] [facility] [address] [id number] [place] [address] 30 Apr, 2012 [facility] [place] [facility] [address] [id number] [place] [address] 30 Apr, 2012 [facility] [place] [facility] [address] [id number] [place] [address] Apr, 2012 [facility] [place] [facility] [address] [id number] [place] [address] 15 Apr, 2012 [facility] [place] [facility] [address] [id number] [place] [address] 15 Apr, 2012 [facility] [place] [facility] [address] [id number] [place] [address] Apr, [facility] [place] [facility] [address] [id number] [place] [address] 26 Mar, 2012 [facility] [place] [facility] [address] [id number] [place] [address] 24 Sep, 2012 [facility] [place] [facility] [address] [id number] [place] [address] 17 Sep, 2012 [facility] [place] [facility] [address] [id number] [place] [address] 17 Sep, 2012 [facility] [place] [facility] [address] [id number] [place] [address] 11 Mar, 2012 [facility] [place] [facility] [address] [id number] [place] [address] 10 Sep, 2012 [facility] [place] [facility] [address] [id number] [place] [address] 05 Sep, 2012 [facility] [place] [facility] [address] [id number] [place] [address] 04 Sep, 2012 [facility] [place] [facility] [address] [id number] [place] [address] 20 Jan, 2012 [facility] [place] [facility] [address] [id number] [place] [address] Jan, [facility] [place] [facility] [address] [facility] [id number] [facility] [place] [address] Jan, [facility] [place] [facility] [address] [facility] [id number] [place] [address] Jan, [facility] [place] [facility] [address] [facility] [id number] [facility] [place] [address] Jan, [facility] [place] [facility] [address] [facility] [id number] [place] [address] Jan, [facility] [place] [facility] [address] [facility] [id number] [place] [address] Dec, [facility] [place] [facility] [address] [facility] [id number] [place] [address] 24 Dec, 2012 [facility] [place] [facility] [address] [id number] [facility] [place] [address] Dec, [facility] [place] [facility] [address] [id number] [facility] [place] [address] Dec, [facility] [place] [facility] [address] [facility] [id number] [facility] [place] [address] Dec, [facility] [place] [facility] [address] [id number] [facility] [place] [address] 17 Dec, 2012 [facility] [place] [facility] [address] [id number] [facility] [place] [address] 16 Dec, 2012 [facility] [place] [facility] [address] [id number] [facility] [place] [address] 16 Dec, 2012 [facility] [place] [facility] [address] [facility] [id number] [place] [address] 15 Dec, 2012 [facility] [place] [facility] [address] [facility] [id number] [facility] [place] [address] Dec, [facility] [place] [facility] [address] [facility] [id number] [facility] [place] [address] Dec, [facility] [place] [facility] [address] [id number] [facility] [place] [address] Dec, [facility] [place] [facility] [address] [id number] [facility] [place] [address] Dec, [facility] [place] [facility] [address] [id number] [place] [address] Dec, [facility] [place] [facility] [address] [id number] [place] [address] Dec, [facility] [place] [facility] [address] [id number] [place] [address] Dec, [facility] [place] [facility] [address] [id number] [place] [address] October, [facility] [place] [facility] [address] [id number] [place] [address] October, [facility] [place] [facility] [address] [id number] [place] [address] October, [facility] [place] [facility] [address] [id number] [place] [address] October, [facility] [place] [facility] [address] [id number] [place] [address] October, [facility] [place] [facility] [address] [id number] [place] [address] October, [facility] [place] [facility] [address] [id number] [place] [address] October, [facility] [place] [facility] [address] [id number] [place] [address] Oct, [facility] [place] [facility] [address] [id number] [place] [address] Oct, [facility] [place] [facility] [address] [id number] [place] [address] Oct, [facility] [place] [facility] [address] [id number] [place] [address] Oct, [facility] [place] [facility] [address] [id number] [place] [address] Oct, [facility] [place] [facility] [address] [id number] [place] [address] Oct, [facility] [address] [id number] [place] [address] 17 Oct, 2012 [facility] [place] [facility] [address] [id number] [place] [address] 15 Oct, 2012 [facility] [place] [facility] [address] [id number] [place] [address] 12 Oct, 2012 [facility] [place] [facility] [address] [id number] [place] [address] Oct, [facility] [place] [facility] [address] [id number] [place] [address] Oct, [facility] [place] [facility] [address] [id number] [place] [address] Oct, [facility] [place] [facility] [address] [id number] [place] [address] Aug, [facility] [place] [facility] [address] [id number] [place] [address] Aug, [facility] [place] [facility] [address] [id number] [place] [address] Aug, [facility] [place] [facility] [address] [id number] [place] [address] Aug, [facility] [place] [facility] [address] [id number] [place] [address] 05 Aug, 2012 [facility] [place] [facility] [address] [id number] [place] [address] 05 Aug, 2012 [facility] [place] [facility] [address] [id number] [place] [address] 20 Aug, 2012 [facility] [place] [facility] [address] [id number] [place] [address] 14 Aug, 2012 [facility] [place] [facility] [address] [id number] [place] [address] 12 Aug, 2012 [facility] [place] [facility] [address] [id number] [place] [address] Aug, [facility] [place] [facility] [address] [id number] [place] [address] 29 Jul, 2012 [facility] [place] [facility] [address] [id number] [place] [address] 15 Jul, 2012 [facility] [place] [facility] [address] [id number] [place] [address] 08 Jul, 2012 [facility] [place] [facility] [address] [id number] [place] [address] 20 Jun, 2012 [facility] [place] [facility] [address] [id number] [place] [address] 18 Jun, 2012 [facility] [place] [facility] [address] [id number] [place] [address] 18 Jun, 2012 [facility] [place] [facility] [address] [id number] [place] [address] 18 Jun, 2012 [facility] [place] [facility] [address] [id number] [place] [address] 18 Jun, 2012 [facility] [place] [facility] [address] [id number] [place] [address] 14 Jun, 2012 [facility] [place] [facility] [address] [id number] [place] [address] 14 Jun, 2012 [facility] [place] [facility] [address] [id number] [place] [address] 13 Jun, 2012 [facility] [place] [facility] [address] [id number] [place] [address] 13 Jun, 2012 [facility] [place] [facility] [address] [id number] [place] [address] 11 Jun, 2012 [facility] [place] [facility] [address] [id number] [place] [address] 11 Jun, 2012 [facility] [place] [facility] [address] [id number] [place] [address] 11 Jun, 2012 [facility] [place] [facility] [address] [id number] [place] [address] 11 Jun, 2012 [facility] [place] [facility] [address] [id number] [place] [address] 07 Jun, 2012 [facility] [place] [facility] [address] [id number] [place] [address] Jun, [facility] [place] [facility] [address] [id number] [place] [address] Jun, [facility] [place] [facility] [address] [id number] [place] [address] Jun, [facility] [place] [facility] [address] [id number] [place] [address] Jun, [facility] [place] [facility] [address] [id number] [place] [address] Jun, [facility] [place] [facility] [address] [id number] [place] [address] Jun, [facility] [place] [facility] [address] [id number] [place] [address] Jun, [facility] [place] [facility] [address] [id number] [place] [address] Jun, [facility] [place] [facility] [address] [id number] [place] [address] Jun, [facility] [place] [facility] [address] [id number] [place] [address] May, [facility] [place] [facility] [address] [id number] [place] [address] May, [facility] [place] [facility] [address] [id number] [place] [address] May, [facility] [place] [facility] [address] [id number] [place] [address] May, [facility] [place] [facility] [address] [id number] [place] [address] May, [facility] [place] [facility] [address] [id number] [place] [address] May, [facility] [place] [facility] [address] [id number] [place] [address] May, [facility] [place] [facility] [address] [id number] [place] [address] May, [facility] [place] [facility] [address] [facility] [id number] [place] [address] Apr, 2011 [facility] [place] [facility] [address] [id number] [place] [address] Apr, [facility] [place] [facility] [address] [id number] [place] [address] Apr, 2011 [facility] [place] [facility] [address] [id number] [place] [address] Apr, [facility] [place] [facility] [address] [id number] [place] [address] Apr, [facility] [place] [facility] [address] [id number] [place] [address] Apr, [facility] [place] [facility] [address] [id number] [place] [address] Apr, [facility] [place] [facility] [address] [id number] [place] [address] Apr, [facility] [place] [facility] [address] [id number] [place] [address] 09 Apr, 2012 [facility] [place] [facility] [address] [id number] [place] [address] 08 Apr, 2012 [facility] [place] [facility] [address] [id number] [place] [address] 04 Apr, 2012 [facility] [place] [facility] [address] [id number] [place] [address] 02 Apr, 2012 [facility] [place] [facility] [address] [id number] [place] [address] 19 Mar, 2011 [facility] [place] [facility] [address] [facility] [id number] [place] [address] 18 Sep, 2011 [facility] [place] [facility] [address] [id number] [place] [address] 12 Sep, 2011 [facility] [place] [facility] [address] [id number] [place] [address] 12 Mar, 2011 [facility] [place] [facility] [address] [facility] [id number] [place] [id number] Mar, [facility] [place] [facility] [address] [id number] [place] [id number] Mar, [facility] [place] [facility] [address] [id number] [place] [address] Mar, [facility] [place] [facility] [address] [id number] [place] [address] Jan, [facility] [place] [facility] [address] [id number] [place] [address] Jan, [facility] [place] [facility] [address] [id number] [place] [id number] Jan, [facility] [place] [facility] [address] [id number] [place] [id number] , [place] [id number] Jan, [facility] [place] [facility] [address] [id number] [place] [address] Jan, [facility] [place] [facility] [address] [id number] [place] [address] Jan, [facility] [place] [facility] [address] [id number] [place] [address] Jan, [facility] [place] [facility] [address] [id number] [place] [address] Jan, [facility] [place] [facility] [address] [id number] [place] [address] Jan, [facility] [place] [facility] [address] [id number] [place] [address] Jan, [facility] [place] [facility] [address] [id number] [place] [address] Jan, [facility] [place] [facility] [address] [id number] [place] [address] Dec, [facility] [place] [facility] [address] [id number] [place] [address] Dec, [facility] [place] [facility] [address] [id number] [place] [address] Dec, [facility] [place] [facility] [address] [id number] [place] [address] 26 Jan, 2012 [facility] [place] [facility] [address] [id number] [facility] [place] [address] 20 Jan, 2012 [facility] [place] [facility] [address] [id number] [place] [address] 19 Jan, 2012 [facility] [place] [facility] [address] [id number] [facility] [place] [address] 18 Jan, 2012 [facility] [place] [facility] [address] [id number] [place] [address] 17 Jan, 2012 [facility] [place] [facility] [address] [facility] [id number] [facility] [place] [address] 16 Jan, 2012 [facility] [place] [facility] [address] [id number] [place] [address] Dec, [facility] [address] [id number] [place] [address] Dec, [facility] [address] [id number] [place] [address] Dec, [facility] [address] [id number] [place] [address] Dec, [facility] [address] [id number] [place] [address] Dec, [facility] [address] [id number] [place] [address] Dec, [facility] [address] [id number] [place] [address] Dec, [facility] [address] [id number] [place] [address] 15 Dec, 2011 [facility] [address] [id number] [place] [address] 06 Dec, 2011 [facility] [address] [id number] [place] [address] 05 Dec, 2011 [facility] [address] [id number] [place] [address] October, [facility] [address] [id number] [place] [address] October, [facility] [address] [id number] [place] [address] October, [facility] [address] [id number] [place] [address] October, [facility] [address] [id number] [place] [address] October, [facility] [address] [id number] [place] [address] October, [facility] [address] [id number] [place] [address] Oct, [facility] [address] [id number] [place] [address] Oct, [facility] [address] [id number] [place] [address] Oct, [facility] [address] [id number] [place] [address] Oct, [facility] [address] [id number] [place] [address] Oct, [facility] [address] [id number] [place] [address] Oct, [facility] [address] [id number] [place] [address] Oct, [facility] [address] [id number] [place] [address] Aug, [facility] [address] [id number] [place] [address] Aug, [facility] [address] [id number] [place] [address] Aug, [facility] [address] [id number] [place] [address] Aug, [facility] [address] [id number] [place] [address] Aug, [facility] [address] [id number] [place] [address] Aug, [facility] [address] [id number] [place] [address] Aug, [facility] [address] [id number] [place] [address] Aug, [facility] [address] [id number] [place] [address] Aug, [facility] [address] [id number] [place] [address] Jul, [facility] [address] [id number] [place] [address] Jul, [facility] [address] [id number] [place] [address] Jul, [facility] [address] [id number] [place] [address] Jul, [facility] [address] [id number] [place] [address] Jun, [facility] [address] [id number] [place] [address] Jun, [facility] [address] [id number] [place] [address] May, [facility] [address] [id number] [place] [address] May, [facility] [address] [id number] [place] [address] May, [facility] [address] [id number] [place] [address] May, [facility] [address] [id number] [place] [address] May, [facility] [address] [id number] [place] [address] Apr, [facility] [address] [id number] [place] [address] Apr, [facility] [address] [id number] [place] [address] Apr, [facility] [address] [id number] [place] [address] Jan, [facility] [facility] [address] [id number] [place] [address] Dec, [facility] [id number] [place] [address] October, [facility] [address] [id number] [place] [address] Jun, [facility] [address] [id number] [place] [address] Apr, [facility] [address] [id number] [place] [address] Apr, [facility] [address] [id number] [place] [address] Apr, [facility] [address] [id number] [place] [address] Jun, IMMUNIZATIONS No Known Immunizations SOCIAL HISTORY [...]
--- OUTSIDE RECORDS SUMMARY | 2020-01-25 12:29 | XMS REPORT ---
Author Author Quang Mayereen Doctor Organization [facility] Address Unknown Phone Unavailable Care Team Providers Care Traffic Enumerator Name Role Phone Migration, Doctor Unavailable Unavailable PROBLEMS Type Condition ICD9-CM Code NWX23-SF Code Onset Dates Condition S tatus SNOMED Code Problem Chronic hepatitis C without hepatic coma B18.2 Active 725202237 Problem Cannabis abuse F12.10 Active 86767 009 Problem Bipolar 1 disorder F31.9 Active 3 05137198 Problem Attention deficit hyperactivity disorder (ADHD), combi luciano type F90.2 Active 39357089 Problem Attention deficit R41.840 Active 76 091752 Problem Hot flashes due to menopause N95.1 A ctive 758680329 Problem H/O laminectomy Z98.89 Active 1616 32365 Problem Other chronic pain G89.29 Active 8 1776953 Problem Anxiety disorder, unspecified type F41.9 Active 566192954 Problem Bipolar disorder, in partial remission, most rec ent episode hypomanic F31.71 Active 687549859 ALLERGIES No Information ENCOUNTERS Encounter Location Date Diagnosis [place] [address] [address] Jul, [place] [address] [address] Jul, [place] [address] [address] Apr, [place] [address] [address] Mar, Hot flashes due to menopause N95.1 ; Anx iety disorder, unspecified type F41.9 ; Low back pain M54.5 and Encounter for immunization Z23 [facility] [address] [address] Dec, Other chronic pain G89.29 and Low back p ain M54.5 [place] [address] [address] October, [facility] [address] [address] October, [facility] [address] [address] October, [facility] [address] [address] October, Other chronic pain G89.29 and Chronic he patitis C without hepatic coma B18.2 [facility] [address] [address] Aug, Bipolar disorder, in partial remission, most recent episode hypomanic F31.71 ; Attention deficit hyperactivity disorder (ADHD), combined type F90.2 and Anxiety disorder, unspecified type F41.9 [facility] [address] [address] Aug, [facility] [address] [address] Aug, Bipolar disorder, in partial remission, most recent episode hypomanic F31.71 [facility] [address] [address] Aug, [facility] [address] [address] Aug, Bipolar disorder, in partial remission, most recent episode hypomanic F31.71 [facility] [address] [address] Aug, Bipolar disorder, in partial remission, most recent episode hypomanic F31.71 ; Attention deficit hyperactivity disorder (ADHD), combined type F90.2 and Anxiety disorder, unspecified type F41.9 [facility] [address] [address] Aug, Low back pain M54.5 and Pain in left wri st M25.532 [facility] [address] [address] Aug, [place] [address] [address] Jun, [place] [address] [address] Apr, Bipolar disorder, in partial remission, most recent episode hypomanic F31.71 [place] [address] [address] Apr, [place] [address] [address] Apr, Bipolar disorder, in partial remission, most recent episode hypomanic F31.71 ; Attention deficit hyperactivity disorder (ADHD), combined type F90.2 ; Anxiety disorder, unspecified type F41.9 and 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 [place] [address] [address] Apr, Bipolar disorder, in partial remission, most recent episode hypomanic F31.71 [place] [address] [address] Apr, Bipolar disorder, in partial remission, most recent episode hypomanic F31.71 [place] [address] [address] Mar, [place] [address] [address] Mar, Bipolar disorder, in partial remission, most recent episode hypomanic F31.71 ; Encounter for immunization Z23 and Low back pain M54.5 [place] [address] [address] Mar, Bipolar disorder, in partial remission, most recent episode hypomanic F31.71 [place] [address] [address] Mar, Bipolar disorder, in partial remission, most recent episode hypomanic F31.71 [place] [address] [address] Jan, Bipolar disorder, in partial remission, most recent episode hypomanic F31.71 [facility] [address] [id number] [place] [address] Jan, Bipolar disorder, in partial remission, most recent episode hypomanic F31.71 [facility] [address] [id number] [place] [address] Dec, Bipolar disorder, in partial remission, most recent episode hypomanic F31.71 [facility] [address] [place] [id number] [place] [address] Dec, Bipolar disorder, in partial remission, most recent episode hypomanic F31.71 ; Attention deficit hyperactivity disorder (ADHD), combined type F90.2 ; Anxiety disorder, unspecified type F41.9 and 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 [facility] [address] [place] [id number] [place] [address] Dec, Bipolar disorder, in partial remission, most recent episode hypomanic F31.71 [facility] [address] [place] [id number] [place] [address] Dec, Bipolar disorder, in partial remission, most recent episode hypomanic F31.71 [facility] [address] [id number] [place] [address] October, Bipolar disorder, in partial remission, most recent episode hypomanic F31.71 [facility] [address] [place] [id number] [place] [address] October, [facility] [address] [id number] [place] [address] October, [facility] [address] [id number] [place] [address] Oct, Bipolar disorder, in partial remission, most recent episode hypomanic F31.71 ; Attention deficit hyperactivity disorder (ADHD), combined type F90.2 ; Anxiety disorder, unspecified type F41.9 and Encounter for drug screening Z02.83 [facility] [address] [place] [id number] [place] [address] Oct, Bipolar disorder, in partial remission, most recent episode hypomanic F31.71 [facility] [address] [address] Oct, Bipolar disorder, in partial remission, most recent episode hypomanic F31.71 [facility] [address] [place] [id number] [place] [address] Aug, Bipolar disorder, in partial remission, most recent episode hypomanic F31.71 [facility] [address] [address] Aug, Bipolar disorder, in partial remission, most recent episode hypomanic F31.71 [facility] [address] [address] Aug, Bipolar disorder, in partial remission, most recent episode hypomanic F31.71 [place] [address] [address] Jul, Bipolar disorder, in partial remission, most recent episode hypomanic F31.71 ; Attention deficit hyperactivity disorder (ADHD), combined type F90.2 and Anxiety disorder, unspecified type F41.9 [facility] [address] [address] Jul, Bipolar disorder, in partial remission, most recent episode hypomanic F31.71 [place] [address] [address] Jun, Bipolar disorder, in partial remission, most recent episode hypomanic F31.71 [facility] [address] [place] [id number] [place] [address] May, Bipolar disorder, in partial remission, most recent episode hypomanic F31.71 [facility] [address] [address] May, Bipolar disorder, in partial remission, most recent episode hypomanic F31.71 [facility] [address] [address] Apr, [place] [address] [place] [id number] [place] [address] Apr, Bipolar disorder, in partial remission, most recent episode hypomanic F31.71 ; Attention deficit hyperactivity disorder (ADHD), combined type F90.2 ; Anxiety disorder, unspecified type F41.9 and Cannabis abuse F12.10 [facility] [address] [place] [id number] [place] [address] Apr, Attention deficit hyperactivity disorder (ADHD), combined type F90.2 [facility] [address] [address] Mar, Attention deficit hyperactivity disorder (ADHD), combined type F90.2 [place] [address] [address] Mar, Anxiety disorder, unspecified type F41.9 [facility] [address] [address] Jan, Attention deficit hyperactivity disorder (ADHD), combined type F90.2 [facility] [address] [address] Jan, Anxiety disorder, unspecified type F41.9 [place] [address] [address] Jan, Other chronic pain G89.29 ; Chronic hepa titis C without hepatic coma B18.2 and Bipolar 1 disorder F31.9 [facility] [address] [address] Dec, Attention deficit hyperactivity disorder (ADHD), combined type F90.2 [facility] [address] [address] Dec, Bipolar disorder, in partial remission, most recent episode hypomanic F31.71 ; Attention deficit hyperactivity disorder (ADHD), combined type F90.2 and Anxiety disorder, unspecified type F41.9 [facility] [address] [place] [id number] [place] [address] Dec, Bipolar disorder, in partial remission, most recent episode hypomanic F31.71 ; Attention deficit hyperactivity disorder (ADHD), combined type F90.2 and Anxiety disorder, unspecified type F41.9 [facility] [address] [address] Dec, Bipolar 1 disorder F31.9 and Attention d eficit R41.840 [facility] [address] [address] Oct, Other chronic pain G89.29 ; Alopecia L65 .9 and Screening, lipid Z13.220 [facility] [address] [address] Oct, [facility] [address] [address] Aug, [facility] [address] [address] Aug, Eustachian tube dysfunction, right H69.8 1 ; Vertigo R42 and Other chronic pain G89.29 [facility] [address] [address] Aug, [facility] [address] [address] Jun, [facility] [address] [address] Jun, Low back pain M54.5 and Other chronic pa in G89.29 [facility] [address] [address] Jun, [facility] [address] [address] May, [facility] [address] [address] Jan, [facility] [address] [address] Dec, [facility] [address] [address] Dec, [facility] [address] [address] Jun, [facility] [address] [address] Apr, Eustachian tube dysfunction, unspecified laterality H69.80 ; Hot flashes N95.1 and Encounter for immunization Z23 [facility] [address] [address] Jan, [facility] [address] [address] Jan, [facility] [address] [address] Jan, [facility] [address] [address] Jan, [facility] [address] [address] Jan, Encounter to establish care V65.8 ; Bipo lar 1 disorder 296.7 ; Abdominal pain 789.00 ; Constipation 564.00 ; Hard of hearing 389.9 and Drug abuse 305.90 [facility] [address] [address] Dec, [facility] [address] [address] October, [facility] [address] [address] October, [facility] [address] [address] Oct, [facility] [address] [address] Oct, [facility] [address] [address] Oct, [facility] [address] [address] Aug, [facility] [address] [id number] [place] [address] Aug, [facility] [address] [id number] [place] [address] Aug, [facility] [address] [id number] [place] [address] Aug, 2014 [facility] [address] [id number] [place] [address] Aug, 2014 [facility] [address] [id number] [place] [address] Aug, 2014 [facility] [address] [id number] [place] [address] Aug, 2014 [facility] [address] [id number] [place] [address] Aug, 2014 [facility] [address] [id number] [place] [address] Aug, 2014 [facility] [address] [id number] [place] [address] Aug, 2014 [facility] [address] [id number] [place] [address] Aug, 2014 [facility] [address] [id number] [place] [address] Aug, 2014 [facility] [address] [id number] [place] [address] Aug, 2014 [facility] [address] [id number] [place] [address] Aug, 2014 [facility] [address] [id number] [place] [address] Aug, [facility] [address] [id number] [place] [address] Jul, [facility] [address] [id number] [place] [address] Jul, [facility] [address] [id number] [place] [address] Jul, [facility] [address] [facility] [id number] [place] [address] Jul, [facility] [address] [id number] [place] [address] Jul, [facility] [address] [id number] [place] [address] Jul, [facility] [address] [id number] [place] [address] Jul, [facility] [address] [id number] [place] [address] Jul, [facility] [address] [id number] [place] [address] Jun, [facility] [address] [id number] [place] [address] Jun, [facility] [address] [id number] [place] [address] Jun, [facility] [address] [id number] [place] [address] Jun, [facility] [address] [id number] [place] [address] Jun, [facility] [address] [id number] [place] [address] Jun, [facility] [address] [id number] [place] [address] 15 Jun, 2014 [facility] [address] [id number] [place] [address] Jun, [facility] [address] [id number] [place] [address] Jun, [facility] [address] [id number] [place] [address] Jun, [facility] [address] [id number] [place] [address] Jun, [facility] [address] [id number] [place] [address] May, [facility] [address] [id number] [place] [address] May, [facility] [address] [id number] [place] [address] May, [facility] [address] [id number] [place] [address] May, [facility] [address] [id number] [place] [address] May, [facility] [address] [id number] [place] [address] May, [facility] [address] [id number] [place] [address] May, [facility] [address] [id number] [place] [address] Apr, [facility] [address] [id number] [place] [address] Apr, [facility] [address] [id number] [place] [address] Apr, [facility] [address] [id number] [place] [address] Apr, [facility] [address] [id number] [place] [address] Apr, [facility] [address] [id number] [place] [address] Apr, [facility] [address] [id number] [place] [address] 29 Mar, 2014 [facility] [address] [id number] [place] [address] 29 Mar, 2014 [facility] [address] [id number] [place] [address] Mar, [facility] [address] [id number] [place] [address] Mar, [facility] [address] [facility] [id number] [place] [address] Mar, [facility] [address] [facility] [id number] [facility] [place] [address] Mar, [facility] [address] [id number] [place] [address] Jan, [facility] [address] [facility] [id number] [facility] [place] [address] Jan, [facility] [address] [facility] [id number] [place] [address] Jan, [facility] [address] [id number] [place] [address] Jan, [facility] [address] [id number] [place] [address] Dec, [facility] [address] [id number] [place] [address] Dec, [facility] [address] [id number] [place] [address] Dec, [facility] [address] [id number] [place] [address] Dec, [facility] [address] [id number] [place] [address] Dec, [facility] [address] [id number] [place] [address] Dec, [facility] [address] [facility] [id number] [place] [address] Dec, [facility] [address] [facility] [id number] [place] [address] Dec, [facility] [address] [id number] [place] [address] Dec, [facility] [address] [id number] [place] [address] Dec, [facility] [address] [id number] [facility] [place] [address] Dec, [facility] [address] [id number] [place] [address] Dec, [facility] [address] [id number] [place] [address] October, [facility] [address] [id number] [place] [address] October, [facility] [address] [id number] [place] [address] October, [facility] [address] [id number] [place] [address] October, [facility] [address] [id number] [place] [address] October, [facility] [address] [id number] [place] [address] October, [facility] [address] [id number] [place] [address] Oct, [facility] [address] [id number] [place] [address] Oct, [facility] [address] [id number] [place] [address] Oct, [facility] [address] [id number] [place] [address] Oct, [facility] [address] [id number] [place] [address] Oct, [facility] [address] [id number] [place] [address] Oct, [facility] [address] [id number] [place] [address] Oct, [facility] [address] [id number] [place] [address] Oct, [facility] [address] [id number] [place] [address] Oct, [facility] [address] [id number] [place] [address] Oct, [facility] [address] [id number] [place] [address] Oct, [facility] [address] [id number] [place] [address] 08 Oct, 2013 [facility] [address] [id number] [place] [address] Aug, [facility] [address] [id number] [place] [address] Aug, [facility] [address] [id number] [place] [address] Aug, [facility] [address] [id number] [place] [address] Aug, [facility] [address] [id number] [place] [address] Aug, [facility] [address] [id number] [place] [address] Aug, [facility] [address] [id number] [place] [address] Aug, [facility] [address] [id number] [place] [address] Aug, [facility] [address] [id number] [place] [address] Aug, [facility] [address] [id number] [place] [address] Aug, [facility] [address] [id number] [place] [address] Aug, [facility] [address] [id number] [place] [address] Aug, [facility] [address] [id number] [place] [address] Aug, [facility] [address] [id number] [place] [address] 20 Aug, 2013 [facility] [address] [id number] [place] [address] Aug, [facility] [address] [id number] [place] [address] Aug, [facility] [address] [id number] [place] [address] Aug, [facility] [address] [id number] [place] [address] Aug, [facility] [address] [id number] [place] [address] Aug, [facility] [address] [id number] [place] [address] 07 Aug, 2013 [facility] [address] [id number] [place] [address] Aug, [facility] [address] [id number] [place] [address] Aug, [facility] [address] [id number] [place] [address] Aug, [facility] [address] [id number] [place] [address] Aug, [facility] [address] [id number] [place] [address] Aug, [facility] [address] [id number] [place] [address] Jul, [facility] [address] [id number] [place] [address] Jul, [facility] [id number] [place] [address] Jul, [facility] [address] [facility] [id number] [place] [address] Jul, [facility] [place] [facility] [id number] [place] [address] Jul, [facility] [place] [facility] [address] [id number] [place] [address] Jul, [facility] [place] [facility] [address] [id number] [place] [address] Jul, [facility] [place] [facility] [address] [id number] [place] [address] Jul, [facility] [place] [facility] [address] [id number] [place] [address] Jul, [facility] [place] [facility] [address] [id number] [place] [address] Jul, [facility] [place] [facility] [address] [id number] [place] [address] Jul, [facility] [place] [facility] [address] [id number] [place] [address] Jul, [facility] [place] [facility] [address] [id number] [place] [address] Jul, [facility] [place] [facility] [address] [id number] [place] [address] Jul, [facility] [place] [facility] [address] [id number] [place] [address] Jul, [facility] [place] [facility] [address] [id number] [place] [address] Jul, [facility] [place] [facility] [address] [id number] [place] [address] Jul, [facility] [place] [facility] [address] [id number] [place] [address] Jul, [facility] [place] [facility] [address] [id number] [place] [address] Jul, [facility] [place] [facility] [address] [id number] [place] [address] Jul, [facility] [place] [facility] [address] [id number] [place] [address] Jun, [facility] [place] [facility] [address] [id number] [place] [address] 31 Jun, 2013 [facility] [place] [facility] [address] [facility] [id number] [place] [address] Jun, [facility] [place] [facility] [address] [facility] [id number] [place] [address] Jun, [facility] [place] [facility] [address] [id number] [place] [address] Jun, [facility] [place] [facility] [address] [id number] [place] [address] Jun, [facility] [place] [facility] [address] [facility] [id number] [place] [address] Jun, [facility] [place] [facility] [address] [id number] [place] [address] Jun, [facility] [place] [facility] [address] [id number] [place] [address] Jun, [facility] [place] [facility] [address] [id number] [place] [address] Jun, [facility] [place] [facility] [address] [id number] [place] [address] Jun, [facility] [place] [facility] [address] [id number] [place] [address] Jun, [facility] [place] [facility] [address] [id number] [place] [address] Jun, [facility] [place] [facility] [address] [id number] [place] [address] Jun, [facility] [place] [facility] [address] [id number] [place] [address] Jun, [facility] [place] [facility] [address] [id number] [place] [address] 18 Jun, 2013 [facility] [place] [facility] [address] [id number] [place] [address] 18 Jun, 2013 [facility] [place] [facility] [address] [id number] [place] [address] 17 Jun, 2013 [facility] [place] [facility] [address] [id number] [place] [address] 17 Jun, 2013 [facility] [place] [facility] [address] [id number] [place] [address] Jun, [facility] [place] [facility] [address] [id number] [place] [address] Jun, [facility] [place] [facility] [address] [id number] [place] [address] Jun, [facility] [place] [facility] [address] [id number] [place] [address] Jun, [facility] [place] [facility] [address] [id number] [place] [address] Jun, [facility] [place] [facility] [address] [id number] [place] [address] Jun, [facility] [place] [facility] [address] [id number] [place] [address] Jun, [facility] [place] [facility] [address] [id number] [place] [address] Jun, [facility] [place] [facility] [address] [id number] [place] [address] May, [facility] [place] [facility] [address] [id number] [place] [address] May, [facility] [place] [facility] [address] [id number] [place] [address] May, [facility] [place] [facility] [address] [id number] [place] [address] May, [facility] [place] [facility] [address] [id number] [place] [address] May, [facility] [place] [facility] [id number] [place] [address] May, [facility] [place] [facility] [address] [id number] [place] [address] Apr, [facility] [place] [facility] [address] [id number] [place] [address] Apr, [facility] [place] [facility] [address] [id number] [place] [address] 30 Apr, 2012 [facility] [place] [facility] [address] [id number] [place] [address] 30 Apr, 2012 [facility] [place] [facility] [address] [id number] [place] [address] Apr, 2012 [facility] [place] [facility] [address] [id number] [place] [address] 15 Apr, 2013 [facility] [place] [facility] [address] [id number] [place] [address] 15 Apr, 2013 [facility] [place] [facility] [address] [id number] [place] [address] Apr, [facility] [place] [facility] [address] [id number] [place] [address] 26 Mar, 2012 [facility] [place] [facility] [address] [id number] [place] [address] 24 Mar, 2012 [facility] [place] [facility] [address] [id number] [place] [address] 17 Mar, 2012 [facility] [place] [facility] [address] [id number] [place] [address] 17 Mar, 2012 [facility] [place] [facility] [address] [id number] [place] [address] 11 Mar, 2012 [facility] [place] [facility] [address] [id number] [place] [address] 10 Mar, 2012 [facility] [place] [facility] [address] [id number] [place] [address] 05 Sep, 2012 [facility] [place] [facility] [address] [id number] [place] [address] 04 Mar, 2012 [facility] [place] [facility] [address] [id number] [place] [address] 20 Jan, 2013 [facility] [place] [facility] [address] [id number] [place] [address] 19 Jan, 2013 [facility] [place] [facility] [address] [id number] [place] [address] 14 Jan, 2013 [facility] [place] [facility] [address] [facility] [id number] [facility] [place] [address] 12 Jan, 2013 [facility] [place] [facility] [address] [facility] [id number] [facility] [place] [address] Jan, [facility] [place] [facility] [address] [id number] [facility] [place] [address] 05 Jan, 2013 [facility] [place] [facility] [address] [facility] [id number] [place] [address] Dec, [facility] [place] [facility] [address] [facility] [id number] [place] [address] 24 Dec, 2012 [facility] [place] [facility] [address] [facility] [id number] [place] [address] Dec, [facility] [place] [facility] [address] [id number] [facility] [place] [address] Dec, [facility] [place] [facility] [address] [id number] [facility] [place] [address] 18 Dec, 2012 [facility] [place] [facility] [address] [facility] [id number] [facility] [place] [address] 17 Dec, 2012 [facility] [place] [facility] [address] [id number] [facility] [place] [address] 16 Dec, 2012 [facility] [place] [facility] [address] [id number] [place] [address] 16 Dec, 2012 [facility] [place] [facility] [address] [id number] [facility] [place] [address] 15 Dec, 2012 [facility] [place] [facility] [address] [facility] [id number] [facility] [place] [address] 10 Dec, 2012 [facility] [place] [facility] [address] [id number] [facility] [place] [address] 28 Dec, 2012 [facility] [place] [facility] [address] [facility] [id number] [facility] [place] [address] Dec, [facility] [place] [facility] [address] [id number] [facility] [place] [address] Dec, [facility] [place] [facility] [address] [id number] [facility] [place] [address] 17 Dec, 2012 [facility] [place] [facility] [address] [id number] [place] [address] Dec, [facility] [place] [facility] [address] [id number] [place] [address] Dec, [facility] [place] [facility] [address] [id number] [place] [address] October, [facility] [place] [facility] [address] [id number] [facility] [place] [address] October, [facility] [place] [facility] [address] [id number] [facility] [place] [address] October, [facility] [place] [facility] [address] [id number] [place] [address] October, [facility] [place] [facility] [address] [id number] [place] [address] October, [facility] [place] [facility] [address] [id number] [place] [address] October, [facility] [place] [facility] [address] [id number] [place] [address] October, [facility] [place] [facility] [address] [id number] [place] [address] Oct, [facility] [place] [facility] [address] [id number] [place] [address] Oct, [facility] [place] [facility] [address] [id number] [place] [address] 24 Oct, 2012 [facility] [place] [facility] [address] [id number] [place] [address] Oct, [facility] [place] [facility] [address] [id number] [place] [address] Oct, [facility] [place] [facility] [address] [id number] [place] [address] Oct, [facility] [place] [facility] [address] [id number] [place] [address] Oct, [facility] [address] [id number] [place] [address] 15 Oct, 2012 [facility] [address] [id number] [place] [address] Oct, [facility] [place] [facility] [address] [id number] [place] [address] Oct, [facility] [place] [facility] [address] [id number] [place] [address] Oct, [facility] [place] [facility] [address] [id number] [place] [address] Oct, [facility] [address] [id number] [place] [address] Aug, [facility] [place] [facility] [address] [id number] [place] [address] Aug, [facility] [place] [facility] [address] [id number] [place] [address] Aug, [facility] [place] [facility] [address] [id number] [place] [address] Aug, [facility] [place] [facility] [address] [id number] [place] [address] 05 Aug, 2012 [facility] [place] [facility] [address] [id number] [place] [address] Aug, [facility] [place] [facility] [address] [id number] [place] [address] Aug, [facility] [place] [facility] [address] [id number] [place] [address] 14 Aug, 2012 [facility] [place] [facility] [address] [id number] [place] [address] Aug, [facility] [place] [facility] [address] [id number] [place] [address] Aug, [facility] [place] [facility] [address] [id number] [place] [address] Jul, [facility] [place] [facility] [address] [id number] [place] [address] 15 Jul, 2012 [facility] [place] [facility] [address] [id number] [place] [address] 08 Jul, 2012 [facility] [place] [facility] [address] [id number] [place] [address] 20 Jun, 2012 [facility] [place] [facility] [address] [id number] [place] [address] 18 Jun, 2012 [facility] [place] [facility] [address] [id number] [place] [address] 18 Jun, 2012 [facility] [place] [facility] [address] [id number] [place] [address] 18 Jun, 2012 [facility] [place] [facility] [address] [id number] [place] [address] 18 Jun, 2012 [facility] [place] [facility] [address] [id number] [place] [address] 14 Jun, 2012 [facility] [place] [facility] [address] [id number] [place] [address] 14 Jun, 2012 [facility] [place] [facility] [address] [id number] [place] [address] 13 Jun, 2012 [facility] [place] [facility] [address] [id number] [place] [address] 13 Jun, 2012 [facility] [place] [facility] [address] [id number] [place] [address] 11 Jun, 2012 [facility] [place] [facility] [address] [id number] [place] [address] 11 Jun, 2012 [facility] [place] [facility] [address] [id number] [place] [address] 11 Jun, 2012 [facility] [place] [facility] [address] [id number] [place] [address] 11 Jun, 2012 [facility] [place] [facility] [address] [id number] [place] [address] 07 Jun, 2012 [facility] [place] [facility] [address] [id number] [place] [address] 07 Jun, 2012 [facility] [place] [facility] [address] [id number] [place] [address] Jun, [facility] [place] [facility] [address] [id number] [place] [address] Jun, [facility] [place] [facility] [address] [id number] [place] [address] Jun, [facility] [place] [facility] [address] [id number] [place] [address] Jun, [facility] [place] [facility] [address] [id number] [place] [address] Jun, [facility] [place] [facility] [address] [id number] [place] [address] Jun, [facility] [place] [facility] [address] [id number] [place] [address] Jun, [facility] [place] [facility] [address] [id number] [place] [address] Jun, [facility] [place] [facility] [address] [id number] [place] [address] May, [facility] [place] [facility] [address] [id number] [place] [address] May, [facility] [place] [facility] [address] [id number] [place] [address] May, [facility] [place] [facility] [address] [id number] [place] [address] May, [facility] [place] [facility] [address] [id number] [place] [address] May, [facility] [place] [facility] [address] [id number] [place] [address] May, [facility] [place] [facility] [id number] [place] [address] May, [facility] [place] [facility] [address] [id number] [place] [address] May, [facility] [place] [facility] [address] [id number] [place] [address] 30 Apr, 2011 [facility] [place] [facility] [address] [id number] [place] [address] 30 Apr, 2011 [facility] [place] [facility] [address] [id number] [place] [address] 29 Apr, 2011 [facility] [place] [facility] [address] [id number] [place] [address] Apr, 2011 [facility] [place] [facility] [address] [id number] [place] [address] Apr, [facility] [place] [facility] [address] [id number] [place] [address] Apr, [facility] [place] [facility] [address] [id number] [place] [address] Apr, [facility] [place] [facility] [address] [id number] [place] [address] Apr, [facility] [place] [facility] [address] [id number] [place] [address] Apr, [facility] [place] [facility] [address] [id number] [place] [address] 08 Apr, 2012 [facility] [place] [facility] [address] [id number] [place] [address] 04 Apr, 2012 [facility] [place] [facility] [address] [id number] [place] [address] 02 Apr, 2012 [facility] [place] [facility] [address] [id number] [place] [address] 19 Sep, 2011 [facility] [place] [facility] [address] [id number] [place] [address] 18 Sep, 2011 [facility] [place] [facility] [address] [id number] [place] [address] 12 Sep, 2011 [facility] [place] [facility] [address] [id number] [place] [address] 12 Sep, 2011 [facility] [place] [facility] [address] [facility] [id number] [place] [id number] 12 Mar, 2011 [facility] [place] [facility] [address] [facility] [id number] [place] [id number] Mar, [facility] [place] [facility] [address] [id number] [place] [address] Mar, [facility] [place] [facility] [address] [id number] [place] [address] Jan, [facility] [place] [facility] [address] [id number] [place] [address] Jan, [facility] [place] [facility] [address] [id number] [place] [id number] Jan, [facility] [place] [facility] [address] [id number] [place] [id number] Jan, [facility] [place] [facility] [address] [id number] [place] [address] Jan, [facility] [place] [facility] [address] [id number] [place] [address] Jan, [facility] [place] [facility] [address] [id number] [place] [address] Jan, [facility] [place] [facility] [address] [id number] [place] [address] Jan, [facility] [place] [facility] [address] [id number] [place] [address] Jan, [facility] [place] [facility] [address] [id number] [place] [address] Jan, [facility] [place] [facility] [address] [id number] [place] [address] Jan, [facility] [place] [facility] [address] [id number] [place] [address] Dec, [facility] [place] [facility] [address] [id number] [place] [address] Dec, [facility] [place] [facility] [address] [id number] [place] [address] Dec, [facility] [place] [facility] [address] [id number] [place] [address] Dec, [facility] [place] [facility] [address] [id number] [place] [address] 20 Jan, 2012 [facility] [place] [facility] [address] [id number] [facility] [place] [address] 19 Jan, 2012 [facility] [address] [id number] [place] [address] 18 Jan, 2012 [facility] [address] [id number] [facility] [place] [address] 17 Jan, 2012 [facility] [address] [id number] [place] [address] 16 Jan, 2012 [facility] [address] [id number] [place] [address] Dec, [facility] [address] [id number] [place] [address] Dec, [facility] [address] [id number] [place] [address] Dec, [facility] [address] [id number] [place] [address] Dec, [facility] [address] [id number] [place] [address] Dec, [facility] [address] [id number] [place] [address] Dec, [facility] [address] [id number] [place] [address] Dec, [facility] [address] [id number] [place] [address] 15 Dec, 2011 [facility] [address] [id number] [place] [address] Dec, [facility] [address] [id number] [place] [address] Dec, [facility] [address] [id number] [place] [address] October, [facility] [address] [id number] [place] [address] October, [facility] [address] [id number] [place] [address] October, [facility] [address] [id number] [place] [address] October, [facility] [address] [id number] [place] [address] October, [facility] [address] [id number] [place] [address] October, [facility] [address] [id number] [place] [address] Oct, [facility] [address] [id number] [place] [address] Oct, [facility] [address] [id number] [place] [address] Oct, [facility] [address] [id number] [place] [address] Oct, [facility] [address] [id number] [place] [address] Oct, [facility] [address] [id number] [place] [address] Oct, [facility] [address] [id number] [place] [address] Oct, [facility] [address] [id number] [place] [address] Aug, [facility] [address] [id number] [place] [address] Aug, [facility] [address] [id number] [place] [address] Aug, [facility] [address] [id number] [place] [address] Aug, [facility] [address] [id number] [place] [address] 05 Sep, 2011 [facility] [address] [id number] [place] [address] Aug, [facility] [address] [id number] [place] [address] Aug, [facility] [address] [id number] [place] [address] Aug, [facility] [address] [id number] [place] [address] Aug, [facility] [address] [id number] [place] [address] Jul, [facility] [address] [id number] [place] [address] Jul, [facility] [address] [id number] [place] [address] Jul, [facility] [address] [id number] [place] [address] Jul, [facility] [address] [id number] [place] [address] Jun, [facility] [address] [id number] [place] [address] Jun, [facility] [id number] [place] [address] May, [facility] [address] [id number] [place] [address] May, [facility] [id number] [place] [address] May, [facility] [address] [id number] [place] [address] May, [facility] [address] [id number] [place] [address] May, [facility] [address] [id number] [place] [address] Apr, [facility] [id number] [place] [address] Apr, [facility] [address] [id number] [place] [address] 10 Apr, 2011 [facility] [address] [id number] [place] [address] Jan, [facility] [address] [id number] [place] [address] Dec, [facility] [address] [id number] [place] [address] October, [facility] [id number] [place] [address] Jun, [facility] [id number] [place] [address] Apr, [facility] [address] [id number] [place] [address] Apr, [facility] [address] [id number] [place] [address] Apr, [facility] [address] [id number] [place] [address] Jun, IMMUNIZATIONS No Known Immunizations SOCIAL HISTORY [...]
--- OUTSIDE RECORDS SUMMARY | 2020-01-25 12:29 | XMS REPORT ---
Author Author Quang Mayereen Doctor Organization [facility] Address Unknown Phone Unavailable Care Team Providers Care Data Power Consultant Name Role Phone Migration, Doctor Unavailable Unavailable PROBLEMS Type Condition ICD9-CM Code [id number] Code Onset Dates Condition S tatus SNOMED Code Problem Chronic hepatitis C without hepatic coma B18.2 Active 972306624 Problem Cannabis abuse F12.10 Active 07626 009 Problem Bipolar 1 disorder F31.9 Active 3 25872796 Problem Attention deficit hyperactivity disorder (ADHD), combi luciano type F90.2 Active 75467601 Problem Attention deficit R41.840 Active 76 129596 Problem Hot flashes due to menopause N95.1 A ctive 389269541 Problem H/O laminectomy Z98.89 Active 1616 12259 Problem Other chronic pain G89.29 Active 8 1478066 Problem Anxiety disorder, unspecified type F41.9 Active 836578994 Problem Bipolar disorder, in partial remission, most rec ent episode hypomanic F31.71 Active [id number] ALLERGIES No Information ENCOUNTERS Encounter Location Date Diagnosis [place] [address] [address] Jul, [place] [address] [address] Jul, [place] [address] [address] Apr, [place] [address] [address] Mar, Hot flashes due to menopause N95.1 ; Anx iety disorder, unspecified type F41.9 ; Low back pain M54.5 and Encounter for immunization Z23 [facility] [address] [address] Dec, Other chronic pain G89.29 and Low back p ain M54.5 [place] [address] [address] October, [facility] [address] [address] October, [facility] [address] [address] October, [facility] [address] [address] October, Other chronic pain G89.29 and Chronic he patitis C without hepatic coma B18.2 [facility] [address] [address] Aug, Bipolar disorder, in partial remission, most recent episode hypomanic F31.71 ; Attention deficit hyperactivity disorder (ADHD), combined type F90.2 and Anxiety disorder, unspecified type F41.9 [facility] [address] [address] Aug, [facility] [address] [address] Aug, Bipolar disorder, in partial remission, most recent episode hypomanic F31.71 [facility] [address] [address] Aug, [facility] [address] [address] Aug, Bipolar disorder, in partial remission, most recent episode hypomanic F31.71 [facility] [address] [address] Aug, Bipolar disorder, in partial remission, most recent episode hypomanic F31.71 ; Attention deficit hyperactivity disorder (ADHD), combined type F90.2 and Anxiety disorder, unspecified type F41.9 [facility] [address] [address] Aug, Low back pain M54.5 and Pain in left wri st M25.532 [facility] [address] [address] Aug, [place] [address] [address] Jun, [place] [address] [address] Apr, Bipolar disorder, in partial remission, most recent episode hypomanic F31.71 [place] [address] [address] Apr, [place] [address] [address] Apr, Bipolar disorder, in partial remission, most recent episode hypomanic F31.71 ; Attention deficit hyperactivity disorder (ADHD), combined type F90.2 ; Anxiety disorder, unspecified type F41.9 and Other speech language assistant (current) 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 Z79.899 [place] [address] [address] Apr, Bipolar disorder, in partial remission, most recent episode hypomanic F31.71 [place] [address] [address] Apr, Bipolar disorder, in partial remission, most recent episode hypomanic F31.71 [place] [address] [address] Mar, [place] [address] [address] Mar, Bipolar disorder, in partial remission, most recent episode hypomanic F31.71 ; Encounter for immunization Z23 and Low back pain M54.5 [place] [address] [address] Mar, Bipolar disorder, in partial remission, most recent episode hypomanic F31.71 [place] [address] [address] Mar, Bipolar disorder, in partial remission, most recent episode hypomanic F31.71 [place] [address] [address] Jan, Bipolar disorder, in partial remission, most recent episode hypomanic F31.71 [facility] [address] [id number] [place] [address] Jan, Bipolar disorder, in partial remission, most recent episode hypomanic F31.71 [facility] [address] [id number] [place] [address] Dec, Bipolar disorder, in partial remission, most recent episode hypomanic F31.71 [facility] [address] [place] [id number] [place] [address] Dec, Bipolar disorder, in partial remission, most recent episode hypomanic F31.71 ; Attention deficit hyperactivity disorder (ADHD), combined type F90.2 ; Anxiety disorder, unspecified type F41.9 and Other speech language assistant (current) 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 Z79.899 [facility] [address] [place] [id number] [place] [address] Dec, Bipolar disorder, in partial remission, most recent episode hypomanic F31.71 [facility] [address] [place] [id number] [place] [address] Dec, Bipolar disorder, in partial remission, most recent episode hypomanic F31.71 [facility] [address] [id number] [place] [address] October, Bipolar disorder, in partial remission, most recent episode hypomanic F31.71 [facility] [address] [place] [id number] [place] [address] October, [facility] [address] [id number] [place] [address] October, [facility] [address] [id number] [place] [address] Oct, Bipolar disorder, in partial remission, most recent episode hypomanic F31.71 ; Attention deficit hyperactivity disorder (ADHD), combined type F90.2 ; Anxiety disorder, unspecified type F41.9 and Encounter for drug screening Z02.83 [facility] [address] [place] [id number] [place] [address] Oct, Bipolar disorder, in partial remission, most recent episode hypomanic F31.71 [facility] [address] [address] Oct, Bipolar disorder, in partial remission, most recent episode hypomanic F31.71 [facility] [address] [place] [id number] [place] [address] Aug, Bipolar disorder, in partial remission, most recent episode hypomanic F31.71 [facility] [address] [address] Aug, Bipolar disorder, in partial remission, most recent episode hypomanic F31.71 [facility] [address] [address] Aug, Bipolar disorder, in partial remission, most recent episode hypomanic F31.71 [place] [address] [address] Jul, Bipolar disorder, in partial remission, most recent episode hypomanic F31.71 ; Attention deficit hyperactivity disorder (ADHD), combined type F90.2 and Anxiety disorder, unspecified type F41.9 [facility] [address] [address] Jul, Bipolar disorder, in partial remission, most recent episode hypomanic F31.71 [place] [address] [address] Jun, Bipolar disorder, in partial remission, most recent episode hypomanic F31.71 [facility] [address] [place] [id number] [place] [address] May, Bipolar disorder, in partial remission, most recent episode hypomanic F31.71 [facility] [address] [address] May, Bipolar disorder, in partial remission, most recent episode hypomanic F31.71 [facility] [address] [address] Apr, [place] [address] [place] [id number] [place] [address] Apr, Bipolar disorder, in partial remission, most recent episode hypomanic F31.71 ; Attention deficit hyperactivity disorder (ADHD), combined type F90.2 ; Anxiety disorder, unspecified type F41.9 and Cannabis abuse F12.10 [facility] [address] [place] [id number] [place] [address] Apr, Attention deficit hyperactivity disorder (ADHD), combined type F90.2 [facility] [address] [address] Mar, Attention deficit hyperactivity disorder (ADHD), combined type F90.2 [place] [address] [address] Mar, Anxiety disorder, unspecified type F41.9 [facility] [address] [address] Jan, Attention deficit hyperactivity disorder (ADHD), combined type F90.2 [facility] [address] [address] Jan, Anxiety disorder, unspecified type F41.9 [place] [address] [address] Jan, Other chronic pain G89.29 ; Chronic hepa titis C without hepatic coma B18.2 and Bipolar [address] [facility] [address] [address] Dec, Attention deficit hyperactivity disorder (ADHD), combined type F90.2 [facility] [address] [address] Dec, Bipolar disorder, in partial remission, most recent episode hypomanic F31.71 ; Attention deficit hyperactivity disorder (ADHD), combined type F90.2 and Anxiety disorder, unspecified type F41.9 [facility] [address] [place] [id number] [place] [address] Dec, Bipolar disorder, in partial remission, most recent episode hypomanic F31.71 ; Attention deficit hyperactivity disorder (ADHD), combined type F90.2 and Anxiety disorder, unspecified type F41.9 [facility] [address] [address] Dec, Bipolar 1 disorder F31.9 and Attention d eficit R41.840 [facility] [address] [address] Oct, Other chronic pain G89.29 ; Alopecia L65 .9 and Screening, lipid Z13.220 [facility] [address] [address] Oct, [facility] [address] [address] Aug, [facility] [address] [address] Aug, Eustachian tube dysfunction, right H69.8 1 ; Vertigo R42 and Other chronic pain G89.29 [facility] [address] [address] Aug, [facility] [address] [address] Jun, [facility] [address] [address] Jun, Low back pain M54.5 and Other chronic pa in G89.29 [facility] [address] [address] Jun, [facility] [address] [address] May, [facility] [address] [address] Jan, [facility] [address] [address] Dec, [facility] [address] [address] Dec, [facility] [address] [address] Jun, [facility] [address] [address] Apr, Eustachian tube dysfunction, unspecified laterality H69.80 ; Hot flashes N95.1 and Encounter for immunization Z23 [facility] [address] [address] Jan, [facility] [address] [address] Jan, [facility] [address] [address] Jan, [facility] [address] [address] Jan, [facility] [address] [address] Jan, Encounter to establish care V65.8 ; Bipo lar 1 disorder 296.7 ; Abdominal pain 789.00 ; Constipation 564.00 ; Hard of hearing 389.[address] [facility] [address] [address] Dec, [facility] [address] [address] October, [facility] [address] [address] October, [facility] [address] [address] Oct, [facility] [address] [address] Oct, [facility] [address] [address] Oct, [facility] [address] [address] Aug, [facility] [address] [id number] [place] [address] Aug, [facility] [address] [id number] [place] [address] Aug, [facility] [address] [id number] [place] [address] Aug, 2014 [facility] [address] [id number] [place] [address] Aug, 2014 [facility] [address] [id number] [place] [address] Aug, 2014 [facility] [address] [id number] [place] [address] Aug, 2014 [facility] [address] [id number] [place] [address] Aug, 2014 [facility] [address] [id number] [place] [address] Aug, 2014 [facility] [address] [id number] [place] [address] Aug, 2014 [facility] [address] [id number] [place] [address] Aug, 2014 [facility] [address] [id number] [place] [address] Aug, 2014 [facility] [address] [id number] [place] [address] Aug, 2014 [facility] [address] [id number] [place] [address] Aug, 2014 [facility] [address] [id number] [place] [address] Aug, [facility] [address] [id number] [place] [address] Jul, [facility] [address] [id number] [place] [address] Jul, [facility] [address] [id number] [place] [address] Jul, [facility] [address] [facility] [id number] [place] [address] Jul, [facility] [address] [id number] [place] [address] Jul, [facility] [address] [id number] [place] [address] Jul, [facility] [address] [id number] [place] [address] Jul, [facility] [address] [id number] [place] [address] Jul, [facility] [address] [id number] [place] [address] Jun, [facility] [address] [id number] [place] [address] Jun, [facility] [address] [id number] [place] [address] Jun, [facility] [address] [id number] [place] [address] Jun, [facility] [address] [id number] [place] [address] Jun, [facility] [address] [id number] [place] [address] Jun, [facility] [address] [id number] [place] [address] 15 Jun, 2014 [facility] [address] [id number] [place] [address] Jun, [facility] [address] [id number] [place] [address] Jun, [facility] [address] [id number] [place] [address] Jun, [facility] [address] [id number] [place] [address] Jun, [facility] [address] [id number] [place] [address] May, [facility] [address] [id number] [place] [address] May, [facility] [address] [id number] [place] [address] May, [facility] [address] [id number] [place] [address] May, [facility] [address] [id number] [place] [address] May, [facility] [address] [id number] [place] [address] May, [facility] [address] [id number] [place] [address] May, [facility] [address] [id number] [place] [address] Apr, [facility] [address] [id number] [place] [address] Apr, [facility] [address] [id number] [place] [address] Apr, [facility] [address] [id number] [place] [address] Apr, [facility] [address] [id number] [place] [address] Apr, [facility] [address] [id number] [place] [address] Apr, [facility] [address] [id number] [place] [address] 29 Mar, 2014 [facility] [address] [id number] [place] [address] 29 Mar, 2014 [facility] [address] [id number] [place] [address] Mar, [facility] [address] [id number] [place] [address] Mar, [facility] [address] [facility] [id number] [place] [address] Mar, [facility] [address] [facility] [id number] [facility] [place] [address] Mar, [facility] [address] [id number] [place] [address] Jan, [facility] [address] [facility] [id number] [facility] [place] [address] Jan, [facility] [address] [facility] [id number] [place] [address] Jan, [facility] [address] [id number] [place] [address] Jan, [facility] [address] [id number] [place] [address] Dec, [facility] [address] [id number] [place] [address] Dec, [facility] [address] [id number] [place] [address] Dec, [facility] [address] [id number] [place] [address] Dec, [facility] [address] [id number] [place] [address] Dec, [facility] [address] [id number] [place] [address] Dec, [facility] [address] [facility] [id number] [place] [address] Dec, [facility] [address] [facility] [id number] [place] [address] Dec, [facility] [address] [id number] [place] [address] Dec, [facility] [address] [id number] [place] [address] Dec, [facility] [address] [id number] [facility] [place] [address] Dec, [facility] [address] [id number] [place] [address] Dec, [facility] [address] [id number] [place] [address] October, [facility] [address] [id number] [place] [address] October, [facility] [address] [id number] [place] [address] October, [facility] [address] [id number] [place] [address] October, [facility] [address] [id number] [place] [address] October, [facility] [address] [id number] [place] [address] October, [facility] [address] [id number] [place] [address] Oct, [facility] [address] [id number] [place] [address] Oct, [facility] [address] [id number] [place] [address] Oct, [facility] [address] [id number] [place] [address] Oct, [facility] [address] [id number] [place] [address] Oct, [facility] [address] [id number] [place] [address] Oct, [facility] [address] [id number] [place] [address] Oct, [facility] [address] [id number] [place] [address] Oct, [facility] [address] [id number] [place] [address] Oct, [facility] [address] [id number] [place] [address] Oct, [facility] [address] [id number] [place] [address] Oct, [facility] [address] [id number] [place] [address] 08 Oct, 2013 [facility] [address] [id number] [place] [address] Aug, [facility] [address] [id number] [place] [address] Aug, [facility] [address] [id number] [place] [address] Aug, [facility] [address] [id number] [place] [address] Aug, [facility] [address] [id number] [place] [address] Aug, [facility] [address] [id number] [place] [address] Aug, [facility] [address] [id number] [place] [address] Aug, [facility] [address] [id number] [place] [address] Aug, [facility] [address] [id number] [place] [address] Aug, [facility] [address] [id number] [place] [address] Aug, [facility] [address] [id number] [place] [address] Aug, [facility] [address] [id number] [place] [address] Aug, [facility] [address] [id number] [place] [address] Aug, [facility] [address] [id number] [place] [address] 20 Aug, 2013 [facility] [address] [id number] [place] [address] Aug, [facility] [address] [id number] [place] [address] Aug, [facility] [address] [id number] [place] [address] Aug, [facility] [address] [facility] [id number] [place] [address] Aug, [facility] [place] [facility] [address] [id number] [place] [address] Aug, [facility] [place] [facility] [address] [id number] [place] [address] 07 Aug, 2013 [facility] [place] [facility] [address] [id number] [place] [address] Aug, [facility] [place] [facility] [address] [id number] [place] [address] Aug, [facility] [place] [facility] [address] [id number] [place] [address] Aug, [facility] [place] [facility] [address] [id number] [place] [address] Aug, [facility] [place] [facility] [address] [id number] [place] [address] Aug, [facility] [place] [facility] [address] [id number] [place] [address] Jul, [facility] [place] [facility] [address] [id number] [place] [address] Jul, [facility] [place] [facility] [id number] [place] [address] Jul, [facility] [place] [facility] [address] [id number] [place] [address] Jul, [facility] [place] [facility] [id number] [place] [address] Jul, [facility] [place] [facility] [address] [id number] [place] [address] Jul, [facility] [place] [facility] [address] [id number] [place] [address] Jul, [facility] [place] [facility] [address] [id number] [place] [address] Jul, [facility] [place] [facility] [address] [id number] [place] [address] Jul, [facility] [place] [facility] [address] [id number] [place] [address] Jul, [facility] [place] [facility] [address] [id number] [place] [address] Jul, [facility] [place] [facility] [address] [id number] [place] [address] Jul, [facility] [place] [facility] [address] [id number] [place] [address] Jul, [facility] [place] [facility] [address] [id number] [place] [address] Jul, [facility] [place] [facility] [address] [id number] [place] [address] Jul, [facility] [place] [facility] [address] [id number] [place] [address] Jul, [facility] [place] [facility] [address] [id number] [place] [address] Jul, [facility] [place] [facility] [address] [id number] [place] [address] Jul, [facility] [place] [facility] [address] [id number] [place] [address] Jul, [facility] [place] [facility] [address] [id number] [place] [address] Jul, [facility] [place] [facility] [address] [id number] [place] [address] Jun, [facility] [place] [facility] [address] [id number] [place] [address] 31 Jun, 2013 [facility] [place] [facility] [address] [facility] [id number] [place] [address] Jun, [facility] [place] [facility] [address] [facility] [id number] [place] [address] Jun, [facility] [place] [facility] [address] [id number] [place] [address] Jun, [facility] [place] [facility] [address] [id number] [place] [address] Jun, [facility] [place] [facility] [address] [facility] [id number] [place] [address] Jun, [facility] [place] [facility] [address] [id number] [place] [address] Jun, [facility] [place] [facility] [address] [id number] [place] [address] Jun, [facility] [place] [facility] [address] [id number] [place] [address] Jun, [facility] [place] [facility] [address] [id number] [place] [address] Jun, [facility] [place] [facility] [address] [id number] [place] [address] Jun, [facility] [place] [facility] [address] [id number] [place] [address] Jun, [facility] [place] [facility] [address] [id number] [place] [address] Jun, [facility] [place] [facility] [address] [id number] [place] [address] Jun, [facility] [place] [facility] [address] [id number] [place] [address] 18 Jun, 2013 [facility] [place] [facility] [address] [id number] [place] [address] 18 Jun, 2013 [facility] [place] [facility] [address] [id number] [place] [address] 17 Jun, 2013 [facility] [place] [facility] [address] [id number] [place] [address] 17 Jun, 2013 [facility] [place] [facility] [address] [id number] [place] [address] Jun, [facility] [place] [facility] [address] [id number] [place] [address] Jun, [facility] [place] [facility] [address] [id number] [place] [address] Jun, [facility] [place] [facility] [address] [id number] [place] [address] Jun, [facility] [place] [facility] [address] [id number] [place] [address] Jun, [facility] [place] [facility] [address] [id number] [place] [address] Jun, [facility] [place] [facility] [address] [id number] [place] [address] Jun, [facility] [place] [facility] [address] [id number] [place] [address] Jun, [facility] [place] [facility] [address] [id number] [place] [address] May, [facility] [place] [facility] [address] [id number] [place] [address] May, [facility] [place] [facility] [address] [id number] [place] [address] May, [facility] [place] [facility] [address] [id number] [place] [address] May, [facility] [place] [facility] [address] [id number] [place] [address] May, [facility] [place] [facility] [id number] [place] [address] May, [facility] [place] [facility] [address] [id number] [place] [address] Apr, [facility] [place] [facility] [address] [id number] [place] [address] Apr, [facility] [place] [facility] [address] [id number] [place] [address] 30 Apr, 2012 [facility] [place] [facility] [address] [id number] [place] [address] 30 Apr, 2012 [facility] [place] [facility] [address] [id number] [place] [address] Apr, 2012 [facility] [place] [facility] [address] [id number] [place] [address] 15 Apr, 2013 [facility] [place] [facility] [address] [id number] [place] [address] 15 Apr, 2013 [facility] [place] [facility] [address] [id number] [place] [address] Apr, [facility] [place] [facility] [address] [id number] [place] [address] 26 Mar, 2012 [facility] [place] [facility] [address] [id number] [place] [address] 24 Mar, 2012 [facility] [place] [facility] [address] [id number] [place] [address] 17 Mar, 2012 [facility] [place] [facility] [address] [id number] [place] [address] 17 Mar, 2012 [facility] [place] [facility] [address] [id number] [place] [address] 11 Mar, 2012 [facility] [place] [facility] [address] [id number] [place] [address] 10 Mar, 2012 [facility] [place] [facility] [address] [id number] [place] [address] 05 Sep, 2012 [facility] [place] [facility] [address] [id number] [place] [address] 04 Mar, 2012 [facility] [place] [facility] [address] [id number] [place] [address] 20 Jan, 2013 [facility] [place] [facility] [address] [id number] [place] [address] 19 Jan, 2013 [facility] [place] [facility] [address] [id number] [place] [address] 14 Jan, 2013 [facility] [place] [facility] [address] [facility] [id number] [facility] [address] 12 Jan, 2013 [facility] [place] [facility] [address] [facility] [id number] [facility] [place] [address] Jan, [facility] [place] [facility] [address] [id number] [facility] [place] [address] 05 Jan, 2013 [facility] [place] [facility] [address] [facility] [id number] [place] [address] Dec, [facility] [place] [facility] [address] [facility] [id number] [place] [address] 24 Dec, 2012 [facility] [place] [facility] [address] [facility] [id number] [place] [address] Dec, [facility] [place] [facility] [address] [id number] [facility] [place] [address] Dec, [facility] [place] [facility] [address] [id number] [facility] [place] [address] 18 Dec, 2012 [facility] [place] [facility] [address] [facility] [id number] [facility] [place] [address] 17 Dec, 2012 [facility] [place] [facility] [address] [id number] [facility] [place] [address] 16 Dec, 2012 [facility] [place] [facility] [address] [id number] [place] [address] 16 Dec, 2012 [facility] [place] [facility] [address] [id number] [facility] [place] [address] 15 Dec, 2012 [facility] [place] [facility] [address] [facility] [id number] [facility] [place] [address] 10 Dec, 2012 [facility] [place] [facility] [address] [id number] [facility] [place] [address] 28 Dec, 2012 [facility] [place] [facility] [address] [facility] [id number] [facility] [place] [address] Dec, [facility] [place] [facility] [address] [id number] [facility] [place] [address] Dec, [facility] [place] [facility] [address] [id number] [facility] [place] [address] 17 Dec, 2012 [facility] [place] [facility] [address] [id number] [place] [address] Dec, [facility] [place] [facility] [address] [id number] [place] [address] Dec, [facility] [place] [facility] [address] [id number] [place] [address] October, [facility] [place] [facility] [address] [id number] [facility] [place] [address] October, [facility] [place] [facility] [address] [id number] [facility] [place] [address] October, [facility] [place] [facility] [address] [id number] [place] [address] October, [facility] [place] [facility] [address] [id number] [place] [address] October, [facility] [place] [facility] [address] [id number] [place] [address] October, [facility] [place] [facility] [address] [id number] [place] [address] October, [facility] [place] [facility] [address] [id number] [place] [address] Oct, [facility] [place] [facility] [address] [id number] [place] [address] Oct, [facility] [place] [facility] [address] [id number] [place] [address] 24 Oct, 2012 [facility] [place] [facility] [address] [id number] [place] [address] Oct, [facility] [place] [facility] [address] [id number] [place] [address] Oct, [facility] [place] [facility] [address] [id number] [place] [address] Oct, [facility] [place] [facility] [address] [id number] [place] [address] Oct, [facility] [address] [id number] [place] [address] 15 Oct, 2012 [facility] [address] [id number] [place] [address] Oct, [facility] [place] [facility] [address] [id number] [place] [address] Oct, [facility] [place] [facility] [address] [id number] [place] [address] Oct, [facility] [place] [facility] [address] [id number] [place] [address] Oct, [facility] [address] [id number] [place] [address] Aug, [facility] [place] [facility] [address] [id number] [place] [address] Aug, [facility] [place] [facility] [address] [id number] [place] [address] Aug, [facility] [place] [facility] [address] [id number] [place] [address] Aug, [facility] [place] [facility] [address] [id number] [place] [address] 05 Aug, 2012 [facility] [place] [facility] [address] [id number] [place] [address] Aug, [facility] [place] [facility] [address] [id number] [place] [address] Aug, [facility] [place] [facility] [address] [id number] [place] [address] 14 Aug, 2012 [facility] [place] [facility] [address] [id number] [place] [address] Aug, [facility] [place] [facility] [address] [id number] [place] [address] Aug, [facility] [place] [facility] [address] [id number] [place] [address] Jul, [facility] [place] [facility] [address] [id number] [place] [address] 15 Jul, 2012 [facility] [place] [facility] [address] [id number] [place] [address] 08 Jul, 2012 [facility] [place] [facility] [address] [id number] [place] [address] 20 Jun, 2012 [facility] [place] [facility] [address] [id number] [place] [address] 18 Jun, 2012 [facility] [place] [facility] [address] [id number] [place] [address] 18 Jun, 2012 [facility] [place] [facility] [address] [id number] [place] [address] 18 Jun, 2012 [facility] [place] [facility] [address] [id number] [place] [address] 18 Jun, 2012 [facility] [place] [facility] [address] [id number] [place] [address] 14 Jun, 2012 [facility] [place] [facility] [address] [id number] [place] [address] 14 Jun, 2012 [facility] [place] [facility] [address] [id number] [place] [address] 13 Jun, 2012 [facility] [place] [facility] [address] [id number] [place] [address] 13 Jun, 2012 [facility] [place] [facility] [address] [id number] [place] [address] 11 Jun, 2012 [facility] [place] [facility] [address] [id number] [place] [address] 11 Jun, 2012 [facility] [place] [facility] [address] [id number] [place] [address] 11 Jun, 2012 [facility] [place] [facility] [address] [id number] [place] [address] 11 Jun, 2012 [facility] [place] [facility] [address] [id number] [place] [address] 07 Jun, 2012 [facility] [place] [facility] [address] [id number] [place] [address] 07 Jun, 2012 [facility] [place] [facility] [address] [id number] [place] [address] Jun, [facility] [place] [facility] [address] [id number] [place] [address] Jun, [facility] [place] [facility] [address] [id number] [place] [address] Jun, [facility] [place] [facility] [address] [id number] [place] [address] Jun, [facility] [place] [facility] [address] [id number] [place] [address] Jun, [facility] [place] [facility] [address] [id number] [place] [address] Jun, [facility] [place] [facility] [address] [id number] [place] [address] Jun, [facility] [place] [facility] [address] [id number] [place] [address] Jun, [facility] [place] [facility] [address] [id number] [place] [address] May, [facility] [place] [facility] [address] [id number] [place] [address] May, [facility] [place] [facility] [address] [id number] [place] [address] May, [facility] [place] [facility] [address] [id number] [place] [address] May, [facility] [place] [facility] [address] [id number] [place] [address] May, [facility] [place] [facility] [address] [id number] [place] [address] May, [facility] [place] [facility] [id number] [place] [address] May, [facility] [place] [facility] [address] [id number] [place] [address] May, [facility] [place] [facility] [address] [id number] [place] [address] 30 Apr, 2011 [facility] [place] [facility] [address] [id number] [place] [address] 30 Apr, 2011 [facility] [place] [facility] [address] [id number] [place] [address] 29 Apr, 2011 [facility] [place] [facility] [address] [id number] [place] [address] Apr, 2011 [facility] [place] [facility] [address] [id number] [place] [address] Apr, [facility] [place] [facility] [address] [id number] [place] [address] Apr, [facility] [place] [facility] [address] [id number] [place] [address] Apr, [facility] [place] [facility] [address] [id number] [place] [address] Apr, [facility] [place] [facility] [address] [id number] [place] [address] Apr, [facility] [address] [id number] [place] [address] 08 Apr, 2012 [facility] [address] [id number] [place] [address] 04 Apr, 2012 [facility] [address] [id number] [place] [address] 02 Apr, 2012 [facility] [address] [id number] [place] [address] 19 Sep, 2011 [facility] [address] [id number] [place] [address] 18 Sep, 2011 [facility] [address] [id number] [place] [address] 12 Sep, 2011 [facility] [address] [id number] [place] [address] 12 Sep, 2011 [facility] [address] [facility] [id number] [place] [id number] 12 Mar, 2011 [facility] [address] [facility] [id number] [place] [id number] Mar, [facility] [address] [id number] [place] [address] Mar, [facility] [address] [id number] [place] [address] Jan, [facility] [address] [id number] [place] [address] Jan, [facility] [address] [id number] [place] [id number] Jan, [facility] [address] [id number] [place] [id number] Jan, [facility] [address] [id number] [place] [address] Jan, [facility] [address] [id number] [place] [address] Jan, [facility] [address] [id number] [place] [address] Jan, [facility] [address] [id number] [place] [address] Jan, [facility] [address] [id number] [place] [address] Jan, [facility] [address] [id number] [place] [address] Jan, [facility] [address] [id number] [place] [address] Jan, [facility] [address] [id number] [place] [address] Dec, [facility] [address] [id number] [place] [address] Dec, [facility] [address] [id number] [place] [address] Dec, [facility] [address] [id number] [place] [address] Dec, [facility] [address] [id number] [place] [address] 20 Jan, 2012 [facility] [address] [id number] [facility] [place] [address] 19 Jan, 2012 [facility] [address] [id number] [place] [address] 18 Jan, 2012 [facility] [address] [id number] [facility] [place] [address] 17 Jan, 2012 [facility] [address] [id number] [place] [address] 16 Jan, 2012 [facility] [address] [id number] [place] [address] Dec, [facility] [address] [id number] [place] [address] Dec, [facility] [address] [id number] [place] [address] Dec, [facility] [address] [id number] [place] [address] Dec, [facility] [address] [id number] [place] [address] Dec, [facility] [address] [id number] [place] [address] Dec, [facility] [address] [id number] [place] [address] Dec, [facility] [address] [id number] [place] [address] 15 Dec, 2011 [facility] [address] [id number] [place] [address] Dec, [facility] [address] [id number] [place] [address] Dec, [facility] [address] [id number] [place] [address] October, [facility] [address] [id number] [place] [address] October, [facility] [address] [id number] [place] [address] October, [facility] [address] [id number] [place] [address] October, [facility] [address] [id number] [place] [address] October, [facility] [address] [id number] [place] [address] October, [facility] [address] [id number] [place] [address] Oct, [facility] [address] [id number] [place] [address] Oct, [facility] [address] [id number] [place] [address] Oct, [facility] [address] [id number] [place] [address] Oct, [facility] [address] [id number] [place] [address] Oct, [facility] [address] [id number] [place] [address] Oct, [facility] [address] [id number] [place] [address] Oct, [facility] [facility] [address] [id number] [place] [address] Aug, [facility] [address] [id number] [place] [address] Aug, [facility] [address] [id number] [place] [address] Aug, [facility] [address] [id number] [place] [address] Aug, [facility] [address] [id number] [place] [address] 05 Sep, 2011 [facility] [address] [id number] [place] [address] Aug, [facility] [address] [id number] [place] [address] Aug, [facility] [address] [id number] [place] [address] Aug, [facility] [address] [id number] [place] [address] Aug, [facility] [address] [id number] [place] [address] Jul, [facility] [address] [id number] [place] [address] Jul, [facility] [address] [id number] [place] [address] Jul, [facility] [address] [id number] [place] [address] Jul, [facility] [address] [id number] [place] [address] Jun, [facility] [address] [id number] [place] [address] Jun, [facility] [id number] [place] [address] May, [facility] [address] [id number] [place] [address] May, [facility] [id number] [place] [address] May, [facility] [address] [id number] [place] [address] May, [facility] [address] [id number] [place] [address] May, [facility] [address] [id number] [place] [address] Apr, [facility] [id number] [place] [address] Apr, [facility] [address] [id number] [place] [address] 10 Apr, 2011 [facility] [address] [id number] [place] [address] Jan, [facility] [address] [id number] [place] [address] Dec, [facility] [address] [id number] [place] [address] October, [facility] [id number] [place] [address] Jun, [facility] [address] [id number] [place] [address] Apr, [facility] [address] [id number] [place] [address] Apr, [facility] [address] [id number] [place] [address] Apr, [facility] [address] [id number] [place] [address] Jun, IMMUNIZATIONS No Known Immunizations SOCIAL HISTORY [...]
--- OUTSIDE RECORDS SUMMARY | 2020-01-25 12:30 | XMS REPORT ---
Author Author Ana Iraheta Organization [facility] Address [address] [place] [address] Care Team Providers Care Supervisor Advertising Dispatch Clerks Name Role Phone MELISA Iraheta Unavailable PROBLEMS Type Condition ICD9-CM Code [id number] Code Onset Dates Condition S tatus SNOMED Code Problem Chronic hepatitis C without hepatic coma B18.2 Active 052989872 Problem Cannabis abuse F12.10 Active 90058 009 Problem Bipolar 1 disorder F31.9 Active 3 29113968 Problem Attention deficit hyperactivity disorder (ADHD), combi luciano type F90.2 Active 99806402 Problem Attention deficit R41.840 Active 76 268554 Problem Hot flashes due to menopause N95.1 A ctive 361924682 Problem H/O laminectomy Z98.89 Active 1616 45420 Problem Other chronic pain G89.29 Active 8 6929352 Problem Anxiety disorder, unspecified type F41.9 Active 877553632 Problem Bipolar disorder, in partial remission, most rec ent episode hypomanic F31.71 Active [id number] ALLERGIES No Information ENCOUNTERS Encounter Location Date Diagnosis [place] [address] [address] Jul, [facility] [address] [address] Jul, [facility] [address] [address] Apr, [place] [address] [address] Mar, Hot flashes due to menopause N95.1 ; Anx iety disorder, unspecified type F41.9 ; Low back pain M54.5 and Encounter for immunization Z23 [facility] [address] [address] Dec, Other chronic pain G89.29 and Low back p ain M54.5 [facility] [address] [address] October, [facility] [address] [address] October, [facility] [address] [address] October, [facility] [address] [address] October, Other chronic pain G89.29 and Chronic he patitis C without hepatic coma B18.2 [facility] [address] [address] Aug, Bipolar disorder, in partial remission, most recent episode hypomanic F31.71 ; Attention deficit hyperactivity disorder (ADHD), combined type F90.2 and Anxiety disorder, unspecified type F41.9 [facility] [address] [address] Aug, [facility] [address] [address] Aug, Bipolar disorder, in partial remission, most recent episode hypomanic F31.71 [facility] [address] [address] 14 Aug, 2018 [facility] [address] [address] Aug, Bipolar disorder, in partial remission, most recent episode hypomanic F31.71 [facility] [address] [address] Aug, Bipolar disorder, in partial remission, most recent episode hypomanic F31.71 ; Attention deficit hyperactivity disorder (ADHD), combined type F90.2 and Anxiety disorder, unspecified type F41.9 [facility] [address] [address] Aug, Low back pain M54.5 and Pain in left wri st M25.532 [facility] [address] [address] Aug, [facility] [address] [address] Jun, [facility] [address] [address] Apr, Bipolar disorder, in partial remission, most recent episode hypomanic F31.71 [place] [address] [address] Apr, [place] [address] [address] Apr, Bipolar disorder, in partial remission, most recent episode hypomanic F31.71 ; Attention deficit hyperactivity disorder (ADHD), combined type F90.2 ; Anxiety disorder, unspecified type F41.9 and Other nursing home (current) 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 Z79.899 [place] [address] [address] Apr, Bipolar disorder, in partial remission, most recent episode hypomanic F31.71 [place] [address] [address] Apr, Bipolar disorder, in partial remission, most recent episode hypomanic F31.71 [place] [address] [address] Mar, [place] [address] [address] Mar, Bipolar disorder, in partial remission, most recent episode hypomanic F31.71 ; Encounter for immunization Z23 and Low back pain M54.5 [place] [address] [address] Mar, Bipolar disorder, in partial remission, most recent episode hypomanic F31.71 [place] [address] [address] Mar, Bipolar disorder, in partial remission, most recent episode hypomanic F31.71 [facility] [address] [id number] [place] [address] Jan, Bipolar disorder, in partial remission, most recent episode hypomanic F31.71 [facility] [address] [id number] [place] [address] Jan, Bipolar disorder, in partial remission, most recent episode hypomanic F31.71 [facility] [address] [id number] [place] [address] Dec, Bipolar disorder, in partial remission, most recent episode hypomanic F31.71 [facility] [address] [id number] [place] [address] Dec, Bipolar disorder, in partial remission, most recent episode hypomanic F31.71 ; Attention deficit hyperactivity disorder (ADHD), combined type F90.2 ; Anxiety disorder, unspecified type F41.9 and 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 [facility] [address] [place] [id number] [place] [address] Dec, Bipolar disorder, in partial remission, most recent episode hypomanic F31.71 [facility] [address] [id number] [place] [address] Dec, Bipolar disorder, in partial remission, most recent episode hypomanic F31.71 [facility] [address] [id number] [place] [address] October, Bipolar disorder, in partial remission, most recent episode hypomanic F31.71 [facility] [address] [id number] [place] [address] October, [facility] [address] [id number] [place] [address] October, [facility] [address] [id number] [place] [address] Oct, Bipolar disorder, in partial remission, most recent episode hypomanic F31.71 ; Attention deficit hyperactivity disorder (ADHD), combined type F90.2 ; Anxiety disorder, unspecified type F41.9 and Encounter for drug screening Z02.83 [facility] [address] [place] [id number] [place] [address] Oct, Bipolar disorder, in partial remission, most recent episode hypomanic F31.71 [facility] [address] [place] [id number] [place] [address] Oct, Bipolar disorder, in partial remission, most recent episode hypomanic F31.71 [facility] [address] [address] Aug, Bipolar disorder, in partial remission, most recent episode hypomanic F31.71 [facility] [address] [address] Aug, Bipolar disorder, in partial remission, most recent episode hypomanic F31.71 [place] [address] [place] [id number] [place] [address] Aug, Bipolar disorder, in partial remission, most recent episode hypomanic F31.71 [facility] [address] [place] [id number] [place] [address] Jul, Bipolar disorder, in partial remission, most recent episode hypomanic F31.71 ; Attention deficit hyperactivity disorder (ADHD), combined type F90.2 and Anxiety disorder, unspecified type F41.9 [facility] [address] [place] [id number] [place] [address] Jul, Bipolar disorder, in partial remission, most recent episode hypomanic F31.71 [facility] [address] [place] [id number] [place] [address] Jun, Bipolar disorder, in partial remission, most recent episode hypomanic F31.71 [place] [address] [place] [id number] [place] [address] May, Bipolar disorder, in partial remission, most recent episode hypomanic F31.71 [facility] [address] [place] [id number] [place] [address] May, Bipolar disorder, in partial remission, most recent episode hypomanic F31.71 [place] [address] [address] Apr, [place] [address] [address] Apr, Bipolar disorder, in partial remission, most recent episode hypomanic F31.71 ; Attention deficit hyperactivity disorder (ADHD), combined type F90.2 ; Anxiety disorder, unspecified type F41.9 and Cannabis abuse F12.10 [place] [address] [address] Apr, Attention deficit hyperactivity disorder (ADHD), combined type F90.2 [place] [address] [address] Mar, Attention deficit hyperactivity disorder (ADHD), combined type F90.2 [place] [address] [address] 14 Mar, 2017 Anxiety disorder, unspecified type F41.9 [place] [address] [address] Jan, Attention deficit hyperactivity disorder (ADHD), combined type F90.2 [place] [address] [address] Jan, Anxiety disorder, unspecified type F41.9 [place] [address] [address] Jan, Other chronic pain G89.29 ; Chronic hepa titis C without hepatic coma B18.2 and Bipolar 1 disorder F31.9 [place] [address] [address] Dec, Attention deficit hyperactivity disorder (ADHD), combined type F90.2 [place] [address] [address] Dec, Bipolar disorder, in partial remission, most recent episode hypomanic F31.71 ; Attention deficit hyperactivity disorder (ADHD), combined type F90.2 and Anxiety disorder, unspecified type F41.9 [place] [address] [address] Dec, Bipolar disorder, in partial remission, most recent episode hypomanic F31.71 ; Attention deficit hyperactivity disorder (ADHD), combined type F90.2 and Anxiety disorder, unspecified type F41.9 [facility] [address] [address] Dec, Bipolar 1 disorder F31.9 and Attention d eficit R41.840 [place] [address] [address] Oct, Other chronic pain G89.29 ; Alopecia L65 .9 and Screening, lipid Z13.220 [place] [address] [address] Oct, [place] [address] [address] Aug, [address] [address] Aug, Eustachian tube dysfunction, right H69.8 1 ; Vertigo R42 and Other chronic pain G89.29 [place] [address] [address] Aug, [place] [address] [address] Jun, [place] [address] [address] Jun, Low back pain M54.5 and Other chronic pa in G89.29 [place] [address] [address] Jun, [place] [address] [address] May, [facility] [address] [address] Jan, [place] [address] [address] Dec, [facility] [address] [address] Dec, [facility] [address] [address] Jun, [facility] [address] [address] Apr, Eustachian tube dysfunction, unspecified laterality H69.80 ; Hot flashes N95.1 and Encounter for immunization Z23 [facility] [address] [address] Jan, [facility] [address] [address] Jan, [facility] [address] [address] Jan, [facility] [address] [address] Jan, [facility] [address] [address] Jan, Encounter to establish care V65.8 ; Bipo lar 1 disorder 296.7 ; Abdominal pain 789.00 ; Constipation 564.00 ; Hard of hearing 389.9 and Drug abuse 305.90 [facility] [address] [address] Dec, [facility] [address] [address] October, [facility] [address] [address] October, [facility] [address] [address] Oct, [facility] [address] [address] Oct, [facility] [address] [address] Oct, [facility] [address] [id number] [place] [address] Aug, [facility] [address] [id number] [place] [address] Aug, [facility] [address] [id number] [place] [address] Aug, [facility] [address] [id number] [place] [address] Aug, 2014 [facility] [address] [id number] [place] [address] Aug, 2014 [facility] [address] [id number] [place] [address] Aug, 2014 [facility] [address] [id number] [place] [address] Aug, 2014 [facility] [address] [id number] [place] [address] Aug, 2014 [facility] [address] [id number] [place] [address] Aug, 2014 [facility] [address] [id number] [place] [address] Aug, 2014 [facility] [address] [id number] [place] [address] Aug, 2014 [facility] [address] [id number] [place] [address] Aug, 2014 [facility] [address] [id number] [place] [address] Aug, 2014 [facility] [address] [id number] [place] [address] Aug, 2014 [facility] [address] [id number] [place] [address] Aug, 2014 [facility] [address] [id number] [place] [address] Jul, [facility] [address] [id number] [place] [address] Jul, [facility] [address] [facility] [id number] [place] [address] Jul, [facility] [address] [id number] [place] [address] Jul, [facility] [address] [id number] [place] [address] Jul, [facility] [address] [id number] [place] [address] Jul, [facility] [address] [id number] [place] [address] Jul, [facility] [address] [id number] [place] [address] Jul, [facility] [address] [id number] [place] [address] Jun, [facility] [address] [id number] [place] [address] Jun, [facility] [address] [id number] [place] [address] Jun, [facility] [address] [id number] [place] [address] Jun, [facility] [address] [id number] [place] [address] Jun, [facility] [address] [id number] [place] [address] 15 Jun, 2014 [facility] [address] [id number] [place] [address] Jun, [facility] [address] [id number] [place] [address] Jun, [facility] [address] [id number] [place] [address] Jun, [facility] [address] [id number] [place] [address] Jun, [facility] [address] [id number] [place] [address] Jun, [facility] [address] [id number] [place] [address] May, [facility] [address] [id number] [place] [address] May, [facility] [address] [id number] [place] [address] May, [facility] [address] [id number] [place] [address] May, [facility] [address] [id number] [place] [address] May, [facility] [address] [id number] [place] [address] May, [facility] [address] [place] [id number] [place] [address] May, [facility] [address] [id number] [place] [address] Apr, [facility] [address] [id number] [place] [address] Apr, [facility] [address] [id number] [place] [address] Apr, [facility] [address] [id number] [place] [address] Apr, [facility] [address] [id number] [place] [address] Apr, [facility] [address] [id number] [place] [address] Apr, [facility] [address] [place] [id number] [place] [address] 29 Mar, 2014 [facility] [address] [id number] [place] [address] 29 Mar, 2014 [facility] [address] [id number] [place] [address] Mar, [facility] [address] [facility] [id number] [place] [address] Mar, [facility] [address] [facility] [id number] [place] [address] Mar, [facility] [address] [id number] [place] [address] Mar, [facility] [address] [facility] [id number] [place] [address] Jan, [facility] [address] [facility] [id number] [place] [address] Jan, [facility] [address] [id number] [place] [address] Jan, [facility] [address] [id number] [place] [address] Jan, [facility] [address] [id number] [place] [address] Dec, [facility] [address] [facility] [id number] [place] [address] Dec, [facility] [address] [id number] [place] [address] Dec, [facility] [address] [id number] [place] [address] Dec, [facility] [address] [id number] [place] [address] Dec, [facility] [address] [facility] [id number] [place] [address] Dec, [facility] [address] [id number] [place] [address] Dec, [facility] [address] [facility] [id number] [place] [address] Dec, [facility] [address] [id number] [place] [address] Dec, [facility] [address] [id number] [place] [address] Dec, [facility] [address] [id number] [place] [address] Dec, [facility] [address] [id number] [place] [address] Dec, [facility] [address] [id number] [place] [address] October, [facility] [address] [id number] [place] [address] October, [facility] [address] [id number] [place] [address] October, [facility] [address] [id number] [place] [address] October, [facility] [address] [id number] [place] [address] October, [facility] [address] [id number] [place] [address] October, [facility] [address] [id number] [place] [address] Oct, [facility] [address] [id number] [place] [address] Oct, [facility] [address] [id number] [place] [address] Oct, [facility] [address] [id number] [place] [address] Oct, [facility] [address] [id number] [place] [address] Oct, [facility] [address] [id number] [place] [address] Oct, [facility] [address] [id number] [place] [address] Oct, [facility] [address] [id number] [place] [address] Oct, [facility] [address] [id number] [place] [address] Oct, [facility] [address] [id number] [place] [address] Oct, [facility] [address] [id number] [place] [address] Oct, [facility] [address] [id number] [place] [address] Oct, [facility] [address] [id number] [place] [address] Aug, [facility] [address] [id number] [place] [address] Aug, [facility] [address] [id number] [place] [address] Aug, [facility] [address] [id number] [place] [address] Aug, [facility] [address] [id number] [place] [address] Aug, [facility] [address] [id number] [place] [address] Aug, [facility] [address] [id number] [place] [address] Aug, [facility] [address] [id number] [place] [address] Aug, [facility] [address] [id number] [place] [address] Aug, [facility] [address] [id number] [place] [address] Aug, [facility] [address] [id number] [place] [address] Aug, [facility] [address] [id number] [place] [address] Aug, [facility] [address] [id number] [place] [address] Aug, [facility] [address] [id number] [place] [address] Aug, [facility] [address] [id number] [place] [address] Aug, [facility] [address] [id number] [place] [address] Aug, [facility] [address] [id number] [place] [address] Aug, [facility] [address] [id number] [place] [address] Aug, [facility] [address] [id number] [place] [address] 07 Aug, 2013 [facility] [address] [id number] [place] [address] Aug, [facility] [address] [id number] [place] [address] Aug, [facility] [address] [id number] [place] [address] Aug, [facility] [address] [id number] [place] [address] Aug, [facility] [address] [id number] [place] [address] Aug, [facility] [address] [id number] [place] [address] Aug, [facility] [address] [id number] [place] [address] Jul, [facility] [address] [id number] [place] [address] Jul, [facility] [address] [id number] [place] [address] Jul, [facility] [id number] [place] [address] Jul, [facility] [address] [id number] [place] [address] Jul, [facility] [address] [id number] [place] [address] Jul, [facility] [address] [id number] [place] [address] Jul, [facility] [address] [id number] [place] [address] Jul, [facility] [address] [facility] [id number] [place] [address] Jul, [facility] [address] [id number] [place] [address] Jul, [facility] [address] [id number] [place] [address] Jul, [facility] [address] [id number] [place] [address] Jul, [facility] [address] [id number] [place] [address] Jul, [facility] [address] [id number] [place] [address] Jul, [facility] [address] [id number] [place] [address] Jul, [facility] [address] [id number] [place] [address] Jul, [facility] [address] [id number] [place] [address] Jul, [facility] [address] [id number] [place] [address] Jul, [facility] [address] [id number] [place] [address] Jul, [facility] [address] [id number] [place] [address] Jul, [facility] [address] [id number] [place] [address] Jun, [facility] [address] [facility] [id number] [place] [address] Jun, [facility] [address] [facility] [id number] [place] [address] Jun, [facility] [place] [facility] [address] [facility] [id number] [place] [address] Jun, [facility] [place] [facility] [address] [facility] [id number] [place] [address] Jun, [facility] [place] [facility] [address] [facility] [id number] [place] [address] Jun, [facility] [place] [facility] [address] [id number] [place] [address] Jun, [facility] [place] [facility] [address] [id number] [place] [address] Jun, [facility] [place] [facility] [address] [id number] [place] [address] Jun, [facility] [place] [facility] [address] [id number] [place] [address] Jun, [facility] [place] [facility] [address] [id number] [place] [address] Jun, [facility] [place] [facility] [address] [id number] [place] [address] Jun, [facility] [place] [facility] [address] [id number] [place] [address] Jun, [facility] [place] [facility] [address] [id number] [place] [address] Jun, [facility] [place] [facility] [address] [id number] [place] [address] Jun, [facility] [place] [facility] [address] [id number] [place] [address] Jun, [facility] [place] [facility] [address] [id number] [place] [address] Jun, [facility] [place] [facility] [address] [id number] [place] [address] 17 Jun, 2013 [facility] [place] [facility] [address] [id number] [place] [address] 17 Jun, 2013 [facility] [place] [facility] [address] [id number] [place] [address] Jun, [facility] [place] [facility] [address] [id number] [place] [address] Jun, [facility] [place] [facility] [address] [id number] [place] [address] Jun, [facility] [place] [facility] [address] [id number] [place] [address] Jun, [facility] [place] [facility] [address] [id number] [place] [address] Jun, [facility] [place] [facility] [address] [id number] [place] [address] Jun, [facility] [place] [facility] [address] [id number] [place] [address] Jun, [facility] [place] [facility] [address] [id number] [place] [address] Jun, [facility] [place] [facility] [address] [id number] [place] [address] May, [facility] [place] [facility] [address] [id number] [place] [address] May, [facility] [place] [facility] [address] [id number] [place] [address] May, [facility] [place] [facility] [address] [id number] [place] [address] May, [facility] [place] [facility] [id number] [place] [address] May, [facility] [place] [facility] [address] [id number] [place] [address] May, [facility] [place] [facility] [address] [id number] [place] [address] Apr, [facility] [place] [facility] [address] [id number] [place] [address] 30 Apr, 2012 [facility] [place] [facility] [address] [id number] [place] [address] 30 Apr, 2012 [facility] [place] [facility] [address] [id number] [place] [address] 30 Apr, 2012 [facility] [place] [facility] [address] [id number] [place] [address] Apr, 2012 [facility] [place] [facility] [address] [id number] [place] [address] 15 Apr, 2012 [facility] [place] [facility] [address] [id number] [place] [address] 15 Apr, 2012 [facility] [place] [facility] [address] [id number] [place] [address] Apr, [facility] [place] [facility] [address] [id number] [place] [address] 26 Mar, 2012 [facility] [place] [facility] [address] [id number] [place] [address] 24 Sep, 2012 [facility] [place] [facility] [address] [id number] [place] [address] 17 Sep, 2012 [facility] [place] [facility] [address] [id number] [place] [address] 17 Sep, 2012 [facility] [place] [facility] [address] [id number] [place] [address] 11 Mar, 2012 [facility] [place] [facility] [address] [id number] [place] [address] 10 Sep, 2012 [facility] [place] [facility] [address] [id number] [place] [address] 05 Sep, 2012 [facility] [place] [facility] [address] [id number] [place] [address] 04 Sep, 2012 [facility] [place] [facility] [address] [id number] [place] [address] 20 Jan, 2012 [facility] [place] [facility] [address] [id number] [place] [address] Jan, [facility] [place] [facility] [address] [facility] [id number] [place] [address] Jan, [facility] [place] [facility] [address] [facility] [id number] [place] [address] Jan, [facility] [place] [facility] [address] [facility] [id number] [place] [address] Jan, [facility] [place] [facility] [address] [facility] [id number] [place] [address] Jan, [facility] [place] [facility] [address] [facility] [id number] [place] [address] Dec, [facility] [place] [facility] [address] [facility] [id number] [place] [address] 24 Dec, 2012 [facility] [place] [facility] [address] [id number] [place] [address] Dec, [facility] [place] [facility] [address] [id number] [place] [address] Dec, [facility] [place] [facility] [address] [facility] [id number] [place] [address] Dec, [facility] [place] [facility] [address] [id number] [place] [address] 17 Dec, 2012 [facility] [place] [facility] [address] [facility] [id number] [place] [address] 16 Dec, 2012 [facility] [place] [facility] [address] [facility] [id number] [place] [address] 16 Dec, 2012 [facility] [place] [facility] [address] [facility] [id number] [place] [address] 15 Dec, 2012 [facility] [place] [facility] [address] [facility] [id number] [place] [address] Dec, [facility] [place] [facility] [address] [facility] [id number] [place] [address] Dec, [facility] [place] [facility] [address] [id number] [place] [address] Dec, [facility] [place] [facility] [address] [id number] [place] [address] Dec, [facility] [place] [facility] [address] [id number] [place] [address] Dec, [facility] [place] [facility] [address] [id number] [place] [address] Dec, [facility] [place] [facility] [address] [facility] [id number] [place] [address] Dec, [facility] [place] [facility] [address] [facility] [id number] [place] [address] October, [facility] [place] [facility] [address] [id number] [place] [address] October, [facility] [place] [facility] [address] [facility] [id number] [place] [address] October, [facility] [place] [facility] [address] [facility] [id number] [place] [address] October, [facility] [place] [facility] [address] [facility] [id number] [place] [address] October, [facility] [place] [facility] [address] [id number] [place] [address] October, [facility] [place] [facility] [address] [facility] [id number] [place] [address] October, [facility] [place] [facility] [address] [facility] [id number] [place] [address] Oct, [facility] [place] [facility] [address] [facility] [id number] [place] [address] Oct, [facility] [place] [facility] [address] [id number] [place] [address] Oct, [facility] [place] [facility] [address] [id number] [place] [address] Oct, [facility] [place] [facility] [address] [id number] [place] [address] Oct, [facility] [place] [facility] [id number] [place] [address] Oct, [facility] [id number] [place] [address] 17 Oct, 2012 [facility] [place] [facility] [address] [id number] [place] [address] 15 Oct, 2012 [facility] [place] [facility] [id number] [place] [address] 12 Oct, 2012 [facility] [place] [facility] [address] [id number] [place] [address] Oct, [facility] [place] [facility] [address] [facility] [id number] [place] [address] Oct, [facility] [place] [facility] [address] [facility] [id number] [place] [address] Oct, [facility] [place] [facility] [address] [id number] [place] [address] Aug, [facility] [place] [facility] [address] [facility] [id number] [place] [address] Aug, [facility] [place] [facility] [address] [facility] [id number] [place] [address] Aug, [facility] [place] [facility] [id number] [place] [address] Aug, [facility] [place] [facility] [address] [facility] [id number] [place] [address] 05 Aug, 2012 [facility] [place] [facility] [address] [id number] [place] [address] 05 Aug, 2012 [facility] [place] [facility] [address] [id number] [place] [address] 20 Aug, 2012 [facility] [place] [facility] [address] [id number] [place] [address] 14 Aug, 2012 [facility] [place] [facility] [address] [id number] [place] [address] 12 Aug, 2012 [facility] [place] [facility] [address] [id number] [place] [address] Aug, [facility] [place] [facility] [address] [id number] [place] [address] 29 Jul, 2012 [facility] [place] [facility] [address] [id number] [place] [address] 15 Jul, 2012 [facility] [place] [facility] [address] [id number] [place] [address] 08 Jul, 2012 [facility] [place] [facility] [address] [id number] [place] [address] 20 Jun, 2012 [facility] [place] [facility] [address] [id number] [place] [address] 18 Jun, 2012 [facility] [place] [facility] [address] [facility] [id number] [place] [address] 18 Jun, 2012 [facility] [place] [facility] [address] [facility] [id number] [place] [address] 18 Jun, 2012 [facility] [place] [facility] [address] [id number] [place] [address] 18 Jun, 2012 [facility] [place] [facility] [address] [facility] [id number] [place] [address] 14 Jun, 2012 [facility] [place] [facility] [address] [facility] [id number] [place] [address] 14 Jun, 2012 [facility] [place] [facility] [address] [id number] [place] [address] 13 Jun, 2012 [facility] [place] [facility] [address] [facility] [id number] [place] [address] 13 Jun, 2012 [facility] [place] [facility] [address] [facility] [id number] [place] [address] 11 Jun, 2012 [facility] [place] [facility] [address] [id number] [place] [address] 11 Jun, 2012 [facility] [place] [facility] [address] [id number] [place] [address] 11 Jun, 2012 [facility] [place] [facility] [address] [id number] [place] [address] 11 Jun, 2012 [facility] [place] [facility] [address] [facility] [id number] [place] [address] 07 Jun, 2012 [facility] [place] [facility] [address] [id number] [place] [address] Jun, [facility] [place] [facility] [address] [facility] [id number] [place] [address] Jun, [facility] [place] [facility] [address] [facility] [id number] [place] [address] Jun, [facility] [place] [facility] [address] [facility] [id number] [place] [address] Jun, [facility] [place] [facility] [address] [facility] [id number] [place] [address] Jun, [facility] [place] [facility] [address] [facility] [id number] [place] [address] Jun, [facility] [place] [facility] [address] [facility] [id number] [place] [address] Jun, [facility] [place] [facility] [address] [facility] [id number] [place] [address] Jun, [facility] [place] [facility] [address] [facility] [id number] [place] [address] Jun, [facility] [place] [facility] [address] [facility] [id number] [place] [address] May, [facility] [place] [facility] [address] [facility] [id number] [place] [address] May, [facility] [place] [facility] [address] [facility] [id number] [place] [address] May, [facility] [place] [facility] [address] [facility] [id number] [place] [address] May, [facility] [place] [facility] [address] [facility] [id number] [place] [address] May, [facility] [place] [facility] [address] [facility] [id number] [place] [address] May, [facility] [place] [facility] [address] [facility] [id number] [place] [address] May, [facility] [place] [facility] [address] [id number] [place] [address] May, [facility] [place] [facility] [address] [facility] [id number] [place] [address] Apr, 2011 [facility] [place] [facility] [address] [id number] [place] [address] Apr, [facility] [place] [facility] [address] [facility] [id number] [place] [address] Apr, 2011 [facility] [place] [facility] [address] [id number] [place] [address] Apr, [facility] [place] [facility] [address] [facility] [id number] [place] [address] Apr, [facility] [place] [facility] [address] [facility] [id number] [place] [address] Apr, [facility] [place] [facility] [address] [facility] [id number] [place] [address] Apr, [facility] [place] [facility] [address] [facility] [id number] [place] [address] Apr, [facility] [place] [facility] [address] [facility] [id number] [place] [address] 09 Apr, 2012 [facility] [place] [facility] [address] [facility] [id number] [place] [address] 08 Apr, 2012 [facility] [place] [facility] [address] [facility] [id number] [place] [address] 04 Apr, 2012 [facility] [place] [facility] [address] [facility] [id number] [place] [address] 02 Apr, 2012 [facility] [place] [facility] [address] [facility] [id number] [place] [address] 19 Mar, 2011 [facility] [place] [facility] [address] [facility] [id number] [place] [address] 18 Sep, 2011 [facility] [place] [facility] [address] [id number] [place] [address] 12 Sep, 2011 [facility] [place] [facility] [address] [facility] [id number] [place] [address] 12 Mar, 2011 [facility] [place] [facility] [address] [facility] [id number] [place] [id number] Mar, [facility] [place] [facility] [address] [id number] [place] [id number] Mar, [facility] [place] [facility] [address] [id number] [place] [address] Mar, [facility] [place] [facility] [address] [id number] [place] [address] Jan, [facility] [place] [facility] [address] [id number] [place] [address] Jan, [facility] [place] [facility] [address] [id number] [place] [id number] Jan, [facility] [place] [facility] [address] [id number] [place] [address] , [place] [id number] Jan, [facility] [place] [facility] [address] [id number] [place] [address] Jan, [facility] [place] [facility] [address] [id number] [place] [address] Jan, [facility] [place] [facility] [address] [id number] [place] [address] Jan, [facility] [place] [facility] [address] [id number] [place] [address] Jan, [facility] [place] [facility] [address] [id number] [place] [address] Jan, [facility] [place] [facility] [address] [id number] [place] [address] Jan, [facility] [place] [facility] [address] [id number] [place] [address] Jan, [facility] [place] [facility] [address] [id number] [place] [address] Dec, [facility] [place] [facility] [address] [id number] [place] [address] Dec, [facility] [place] [facility] [address] [id number] [place] [address] Dec, [facility] [place] [facility] [address] [id number] [place] [address] 26 Jan, 2012 [facility] [place] [facility] [address] [id number] [place] [address] 20 Jan, 2012 [facility] [place] [facility] [address] [id number] [place] [address] 19 Jan, 2012 [facility] [place] [facility] [address] [id number] [place] [address] 18 Jan, 2012 [facility] [place] [facility] [address] [id number] [place] [address] 17 Jan, 2012 [facility] [place] [facility] [address] [facility] [id number] [place] [address] 16 Jan, 2012 [facility] [place] [facility] [address] [id number] [place] [address] Dec, [facility] [place] [facility] [address] [id number] [place] [address] Dec, [facility] [place] [facility] [address] [id number] [place] [address] Dec, [facility] [place] [facility] [address] [id number] [place] [address] Dec, [facility] [place] [facility] [address] [id number] [place] [address] Dec, [facility] [place] [facility] [address] [id number] [place] [address] Dec, [facility] [place] [facility] [address] [id number] [place] [address] Dec, [facility] [place] [facility] [address] [id number] [place] [address] 15 Dec, 2011 [facility] [place] [facility] [address] [id number] [place] [address] 06 Dec, 2011 [facility] [place] [facility] [address] [id number] [place] [address] 05 Dec, 2011 [facility] [place] [facility] [address] [id number] [place] [address] October, [facility] [place] [facility] [address] [id number] [place] [address] October, [facility] [place] [facility] [address] [id number] [place] [address] October, [facility] [place] [facility] [address] [id number] [place] [address] October, [facility] [place] [facility] [address] [id number] [place] [address] October, [facility] [place] [facility] [address] [id number] [place] [address] October, [facility] [place] [facility] [address] [id number] [place] [address] Oct, [facility] [place] [facility] [address] [id number] [place] [address] Oct, [facility] [place] [facility] [address] [id number] [place] [address] Oct, [facility] [place] [facility] [address] [id number] [place] [address] Oct, [facility] [place] [facility] [address] [id number] [place] [address] Oct, [facility] [place] [facility] [address] [id number] [place] [address] Oct, [facility] [place] [facility] [address] [id number] [place] [address] Oct, [facility] [place] [facility] [address] [id number] [place] [address] Aug, [facility] [place] [facility] [address] [id number] [place] [address] Aug, [facility] [place] [facility] [address] [id number] [place] [address] Aug, [facility] [place] [id number] [place] [address] Aug, [facility] [id number] [place] [address] Aug, [facility] [id number] [place] [address] Aug, [facility] [id number] [place] [address] Aug, [facility] [id number] [place] [address] Aug, [facility] [id number] [place] [address] Aug, [facility] [id number] [place] [address] Jul, [facility] [id number] [place] [address] Jul, [facility] [id number] [place] [address] Jul, [facility] [id number] [place] [address] Jul, [facility] [id number] [place] [address] Jun, [facility] [id number] [place] [address] Jun, [facility] [id number] [place] [address] May, [facility] [id number] [place] [address] May, [facility] [id number] [place] [address] May, [facility] [id number] [place] [address] May, [facility] [id number] [place] [address] May, [facility] [id number] [place] [address] Apr, [facility] [id number] [place] [address] Apr, [facility] [id number] [place] [address] Apr, [facility] [id number] [place] [address] Jan, [facility] [id number] [place] [address] Dec, [facility] [id number] [place] [address] October, [facility] [id number] [place] [address] Jun, [facility] [id number] [place] [address] Apr, [facility] [id number] [place] [address] Apr, [facility] [id number] [place] [address] Apr, [facility] [id number] [place] [address] Jun, IMMUNIZATIONS No Known Immunizations SOCIAL HISTORY [...]
--- OUTSIDE RECORDS SUMMARY | 2020-01-25 12:30 | XMS REPORT ---
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 Name Role Phone Migration, Doctor Unavailable Unavailable PROBLEMS Type Condition ICD9-CM Code [id number] Code Onset Dates Condition S tatus SNOMED Code Problem Chronic hepatitis C without hepatic coma B18.2 Active 774277406 Problem Cannabis abuse F12.10 Active 44366 009 Problem Bipolar 1 disorder F31.9 Active 3 41732109 Problem Attention deficit hyperactivity disorder (ADHD), combi luciano type F90.2 Active 43810511 Problem Attention deficit R41.840 Active 76 235209 Problem Hot flashes due to menopause N95.1 A ctive 716761037 Problem H/O laminectomy Z98.89 Active 1616 11892 Problem Other chronic pain G89.29 Active 8 7263219 Problem Anxiety disorder, unspecified type F41.9 Active 067307493 Problem Bipolar disorder, in partial remission, most rec ent episode hypomanic F31.71 Active 431089290 ALLERGIES No Information ENCOUNTERS Encounter Location Date Diagnosis [place] [address] [address] Jul, [place] [address] [address] Jul, [place] [address] [address] Apr, [place] [address] [address] Mar, Hot flashes due to menopause N95.1 ; Anx iety disorder, unspecified type F41.9 ; Low back pain M54.5 and Encounter for immunization Z23 [facility] [address] [address] Dec, Other chronic pain G89.29 and Low back p ain M54.5 [place] [address] [address] October, [facility] [address] [address] October, [facility] [address] [address] October, [facility] [address] [address] October, Other chronic pain G89.29 and Chronic he patitis C without hepatic coma B18.2 [facility] [address] [address] Aug, Bipolar disorder, in partial remission, most recent episode hypomanic F31.71 ; Attention deficit hyperactivity disorder (ADHD), combined type F90.2 and Anxiety disorder, unspecified type F41.9 [facility] [address] [address] Aug, [facility] [address] [address] Aug, Bipolar disorder, in partial remission, most recent episode hypomanic F31.71 [facility] [address] [address] Aug, [facility] [address] [address] Aug, Bipolar disorder, in partial remission, most recent episode hypomanic F31.71 [facility] [address] [address] Aug, Bipolar disorder, in partial remission, most recent episode hypomanic F31.71 ; Attention deficit hyperactivity disorder (ADHD), combined type F90.2 and Anxiety disorder, unspecified type F41.9 [facility] [address] [address] Aug, Low back pain M54.5 and Pain in left wri st M25.532 [facility] [address] [address] Aug, [place] [address] [address] Jun, [place] [address] [address] Apr, Bipolar disorder, in partial remission, most recent episode hypomanic F31.71 [place] [address] [address] Apr, [place] [address] [address] Apr, Bipolar disorder, in partial remission, most recent episode hypomanic F31.71 ; Attention deficit hyperactivity disorder (ADHD), combined type F90.2 ; Anxiety disorder, unspecified type F41.9 and 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 Z79.899 [place] [address] [address] Apr, Bipolar disorder, in partial remission, most recent episode hypomanic F31.71 [place] [address] [address] Apr, Bipolar disorder, in partial remission, most recent episode hypomanic F31.71 [place] [address] [address] Mar, [place] [address] [address] Mar, Bipolar disorder, in partial remission, most recent episode hypomanic F31.71 ; Encounter for immunization Z23 and Low back pain M54.5 [place] [address] [address] Mar, Bipolar disorder, in partial remission, most recent episode hypomanic F31.71 [place] [address] [address] Mar, Bipolar disorder, in partial remission, most recent episode hypomanic F31.71 [place] [address] [address] Jan, Bipolar disorder, in partial remission, most recent episode hypomanic F31.71 [facility] [address] [id number] [place] [address] Jan, Bipolar disorder, in partial remission, most recent episode hypomanic F31.71 [facility] [address] [id number] [place] [address] Dec, Bipolar disorder, in partial remission, most recent episode hypomanic F31.71 [facility] [address] [place] [id number] [place] [address] Dec, Bipolar disorder, in partial remission, most recent episode hypomanic F31.71 ; Attention deficit hyperactivity disorder (ADHD), combined type F90.2 ; Anxiety disorder, unspecified type F41.9 and 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 Z79.899 [facility] [address] [place] [id number] [place] [address] Dec, Bipolar disorder, in partial remission, most recent episode hypomanic F31.71 [facility] [address] [place] [id number] [place] [address] Dec, Bipolar disorder, in partial remission, most recent episode hypomanic F31.71 [facility] [address] [id number] [place] [address] October, Bipolar disorder, in partial remission, most recent episode hypomanic F31.71 [facility] [address] [place] [id number] [place] [address] October, [facility] [address] [id number] [place] [address] October, [facility] [address] [id number] [place] [address] Oct, Bipolar disorder, in partial remission, most recent episode hypomanic F31.71 ; Attention deficit hyperactivity disorder (ADHD), combined type F90.2 ; Anxiety disorder, unspecified type F41.9 and Encounter for drug screening Z02.83 [facility] [address] [place] [id number] [place] [address] Oct, Bipolar disorder, in partial remission, most recent episode hypomanic F31.71 [facility] [address] [address] Oct, Bipolar disorder, in partial remission, most recent episode hypomanic F31.71 [facility] [address] [place] [id number] [place] [address] Aug, Bipolar disorder, in partial remission, most recent episode hypomanic F31.71 [facility] [address] [address] Aug, Bipolar disorder, in partial remission, most recent episode hypomanic F31.71 [facility] [address] [address] Aug, Bipolar disorder, in partial remission, most recent episode hypomanic F31.71 [place] [address] [address] Jul, Bipolar disorder, in partial remission, most recent episode hypomanic F31.71 ; Attention deficit hyperactivity disorder (ADHD), combined type F90.2 and Anxiety disorder, unspecified type F41.9 [facility] [address] [address] Jul, Bipolar disorder, in partial remission, most recent episode hypomanic F31.71 [place] [address] [address] Jun, Bipolar disorder, in partial remission, most recent episode hypomanic F31.71 [facility] [address] [place] [id number] [place] [address] May, Bipolar disorder, in partial remission, most recent episode hypomanic F31.71 [facility] [address] [address] May, Bipolar disorder, in partial remission, most recent episode hypomanic F31.71 [facility] [address] [address] Apr, [place] [address] [place] [id number] [place] [address] Apr, Bipolar disorder, in partial remission, most recent episode hypomanic F31.71 ; Attention deficit hyperactivity disorder (ADHD), combined type F90.2 ; Anxiety disorder, unspecified type F41.9 and Cannabis abuse F12.10 [facility] [address] [place] [id number] [place] [address] Apr, Attention deficit hyperactivity disorder (ADHD), combined type F90.2 [facility] [address] [address] Mar, Attention deficit hyperactivity disorder (ADHD), combined type F90.2 [place] [address] [address] Mar, Anxiety disorder, unspecified type F41.9 [facility] [address] [address] Jan, Attention deficit hyperactivity disorder (ADHD), combined type F90.2 [facility] [address] [address] Jan, Anxiety disorder, unspecified type F41.9 [place] [address] [address] Jan, Other chronic pain G89.29 ; Chronic hepa titis C without hepatic coma B18.2 and Bipolar 1 disorder F31.9 [facility] [address] [address] Dec, Attention deficit hyperactivity disorder (ADHD), combined type F90.2 [facility] [address] [address] Dec, Bipolar disorder, in partial remission, most recent episode hypomanic F31.71 ; Attention deficit hyperactivity disorder (ADHD), combined type F90.2 and Anxiety disorder, unspecified type F41.9 [facility] [address] [place] [id number] [place] [address] Dec, Bipolar disorder, in partial remission, most recent episode hypomanic F31.71 ; Attention deficit hyperactivity disorder (ADHD), combined type F90.2 and Anxiety disorder, unspecified type F41.9 [facility] [address] [address] Dec, Bipolar 1 disorder F31.9 and Attention d eficit R41.840 [facility] [address] [address] Oct, Other chronic pain G89.29 ; Alopecia L65 .9 and Screening, lipid Z13.220 [facility] [address] [address] Oct, [facility] [address] [address] Aug, [facility] [address] [address] Aug, Eustachian tube dysfunction, right H69.8 1 ; Vertigo R42 and Other chronic pain G89.29 [facility] [address] [address] Aug, [facility] [address] [address] Jun, [facility] [address] [address] Jun, Low back pain M54.5 and Other chronic pa in G89.29 [facility] [address] [address] Jun, [facility] [address] [address] May, [facility] [address] [address] Jan, [facility] [address] [address] Dec, [facility] [address] [address] Dec, [facility] [address] [address] Jun, [facility] [address] [address] Apr, Eustachian tube dysfunction, unspecified laterality H69.80 ; Hot flashes N95.1 and Encounter for immunization Z23 [facility] [address] [address] Jan, [facility] [address] [address] Jan, [facility] [address] [address] Jan, [facility] [address] [address] Jan, [facility] [address] [address] Jan, Encounter to establish care V65.8 ; Bipo lar 1 disorder 296.7 ; Abdominal pain 789.00 ; Constipation 564.00 ; Hard of hearing 389.9 and Drug abuse 305.90 [facility] [address] [address] Dec, [facility] [address] [address] October, [facility] [address] [address] October, [facility] [address] [address] Oct, [facility] [address] [address] Oct, [facility] [address] [address] Oct, [facility] [address] [address] Aug, [facility] [address] [id number] [place] [address] Aug, [facility] [address] [id number] [place] [address] Aug, [facility] [address] [id number] [place] [address] Aug, 2014 [facility] [address] [id number] [place] [address] Aug, 2014 [facility] [address] [id number] [place] [address] Aug, 2014 [facility] [address] [id number] [place] [address] Aug, 2014 [facility] [address] [id number] [place] [address] Aug, 2014 [facility] [address] [id number] [place] [address] Aug, 2014 [facility] [address] [id number] [place] [address] Aug, 2014 [facility] [address] [id number] [place] [address] Aug, 2014 [facility] [address] [id number] [place] [address] Aug, 2014 [facility] [address] [id number] [place] [address] Aug, 2014 [facility] [address] [id number] [place] [address] Aug, 2014 [facility] [address] [id number] [place] [address] Aug, [facility] [address] [id number] [place] [address] Jul, [facility] [address] [id number] [place] [address] Jul, [facility] [address] [id number] [place] [address] Jul, [facility] [address] [facility] [id number] [place] [address] Jul, [facility] [address] [id number] [place] [address] Jul, [facility] [address] [id number] [place] [address] Jul, [facility] [address] [id number] [place] [address] Jul, [facility] [address] [id number] [place] [address] Jul, [facility] [address] [id number] [place] [address] Jun, [facility] [address] [id number] [place] [address] Jun, [facility] [address] [id number] [place] [address] Jun, [facility] [address] [id number] [place] [address] Jun, [facility] [address] [id number] [place] [address] Jun, [facility] [address] [id number] [place] [address] Jun, [facility] [address] [id number] [place] [address] 15 Jun, 2014 [facility] [address] [id number] [place] [address] Jun, [facility] [address] [id number] [place] [address] Jun, [facility] [address] [id number] [place] [address] Jun, [facility] [address] [id number] [place] [address] Jun, [facility] [address] [id number] [place] [address] May, [facility] [address] [id number] [place] [address] May, [facility] [address] [id number] [place] [address] May, [facility] [address] [id number] [place] [address] May, [facility] [address] [id number] [place] [address] May, [facility] [address] [id number] [place] [address] May, [facility] [address] [id number] [place] [address] May, [facility] [address] [id number] [place] [address] Apr, [facility] [address] [id number] [place] [address] Apr, [facility] [address] [id number] [place] [address] Apr, [facility] [address] [id number] [place] [address] Apr, [facility] [address] [id number] [place] [address] Apr, [facility] [address] [id number] [place] [address] Apr, [facility] [address] [id number] [place] [address] 29 Mar, 2014 [facility] [address] [id number] [place] [address] 29 Mar, 2014 [facility] [address] [id number] [place] [address] Mar, [facility] [address] [id number] [place] [address] Mar, [facility] [address] [facility] [id number] [place] [address] Mar, [facility] [address] [facility] [id number] [facility] [place] [address] Mar, [facility] [address] [id number] [place] [address] Jan, [facility] [address] [facility] [id number] [facility] [place] [address] Jan, [facility] [address] [facility] [id number] [place] [address] Jan, [facility] [address] [id number] [place] [address] Jan, [facility] [address] [id number] [place] [address] Dec, [facility] [address] [id number] [place] [address] Dec, [facility] [address] [id number] [place] [address] Dec, [facility] [address] [id number] [place] [address] Dec, [facility] [address] [id number] [place] [address] Dec, [facility] [address] [id number] [place] [address] Dec, [facility] [address] [facility] [id number] [place] [address] Dec, [facility] [address] [facility] [id number] [place] [address] Dec, [facility] [address] [id number] [place] [address] Dec, [facility] [address] [id number] [place] [address] Dec, [facility] [address] [id number] [facility] [place] [address] Dec, [facility] [address] [id number] [place] [address] Dec, [facility] [address] [id number] [place] [address] October, [facility] [address] [id number] [place] [address] October, [facility] [address] [id number] [place] [address] October, [facility] [address] [id number] [place] [address] October, [facility] [address] [id number] [place] [address] October, [facility] [address] [id number] [place] [address] October, [facility] [address] [id number] [place] [address] Oct, [facility] [address] [id number] [place] [address] Oct, [facility] [address] [id number] [place] [address] Oct, [facility] [address] [id number] [place] [address] Oct, [facility] [address] [id number] [place] [address] Oct, [facility] [address] [id number] [place] [address] Oct, [facility] [address] [id number] [place] [address] Oct, [facility] [address] [id number] [place] [address] Oct, [facility] [address] [id number] [place] [address] Oct, [facility] [address] [id number] [place] [address] Oct, [facility] [address] [id number] [place] [address] Oct, [facility] [address] [id number] [place] [address] 08 Oct, 2013 [facility] [address] [id number] [place] [address] Aug, [facility] [address] [id number] [place] [address] Aug, [facility] [address] [id number] [place] [address] Aug, [facility] [address] [id number] [place] [address] Aug, [facility] [address] [id number] [place] [address] Aug, [facility] [address] [id number] [place] [address] Aug, [facility] [address] [id number] [place] [address] Aug, [facility] [address] [id number] [place] [address] Aug, [facility] [address] [id number] [place] [address] Aug, [facility] [address] [id number] [place] [address] Aug, [facility] [address] [id number] [place] [address] Aug, [facility] [address] [id number] [place] [address] Aug, [facility] [address] [id number] [place] [address] Aug, [facility] [address] [id number] [place] [address] 20 Aug, 2013 [facility] [address] [id number] [place] [address] Aug, [facility] [address] [id number] [place] [address] Aug, [facility] [address] [id number] [place] [address] Aug, [facility] [address] [id number] [place] [address] Aug, [facility] [address] [id number] [place] [address] Aug, [facility] [address] [id number] [place] [address] 07 Aug, 2013 [facility] [address] [id number] [place] [address] Aug, [facility] [address] [id number] [place] [address] Aug, [facility] [address] [id number] [place] [address] Aug, [facility] [address] [id number] [place] [address] Aug, [facility] [address] [id number] [place] [address] Aug, [facility] [address] [id number] [place] [address] Jul, [facility] [address] [id number] [place] [address] Jul, [facility] [id number] [place] [address] Jul, [facility] [address] [id number] [place] [address] Jul, [facility] [id number] [place] [address] Jul, [facility] [address] [id number] [place] [address] Jul, [facility] [address] [id number] [place] [address] Jul, [facility] [address] [id number] [place] [address] Jul, [facility] [address] [id number] [place] [address] Jul, [facility] [address] [id number] [place] [address] Jul, [facility] [address] [id number] [place] [address] Jul, [facility] [address] [id number] [place] [address] Jul, [facility] [address] [id number] [place] [address] Jul, [facility] [address] [id number] [place] [address] Jul, [facility] [address] [id number] [place] [address] Jul, [facility] [address] [id number] [place] [address] Jul, [facility] [address] [id number] [place] [address] Jul, [facility] [address] [id number] [place] [address] Jul, [facility] [address] [id number] [place] [address] Jul, [facility] [address] [id number] [place] [address] Jul, [facility] [address] [id number] [place] [address] Jun, [facility] [address] [id number] [place] [address] 31 Jun, 2013 [facility] [address] [facility] [id number] [place] [address] Jun, [facility] [address] [facility] [id number] [place] [address] Jun, [facility] [place] [facility] [address] [id number] [place] [address] Jun, [facility] [place] [facility] [address] [id number] [place] [address] Jun, [facility] [place] [facility] [address] [facility] [place] [id number] [place] [address] Jun, [facility] [place] [facility] [address] [id number] [place] [address] Jun, [facility] [place] [facility] [address] [id number] [place] [address] Jun, [facility] [place] [facility] [address] [id number] [place] [address] Jun, [facility] [place] [facility] [address] [id number] [place] [address] Jun, [facility] [place] [facility] [address] [id number] [place] [address] Jun, [facility] [place] [facility] [address] [id number] [place] [address] Jun, [facility] [place] [facility] [address] [id number] [place] [address] Jun, [facility] [place] [facility] [address] [id number] [place] [address] Jun, [facility] [place] [facility] [address] [id number] [place] [address] 18 Jun, 2013 [facility] [place] [facility] [address] [id number] [place] [address] 18 Jun, 2013 [facility] [place] [facility] [address] [id number] [place] [address] 17 Jun, 2013 [facility] [place] [facility] [address] [id number] [place] [address] 17 Jun, 2013 [facility] [place] [facility] [address] [id number] [place] [address] Jun, [facility] [place] [facility] [address] [id number] [place] [address] Jun, [facility] [place] [facility] [address] [id number] [place] [address] Jun, [facility] [place] [facility] [address] [id number] [place] [address] Jun, [facility] [place] [facility] [address] [id number] [place] [address] Jun, [facility] [place] [facility] [address] [id number] [place] [address] Jun, [facility] [place] [facility] [address] [id number] [place] [address] Jun, [facility] [place] [facility] [address] [id number] [place] [address] Jun, [facility] [place] [facility] [address] [id number] [place] [address] May, [facility] [place] [facility] [address] [id number] [place] [address] May, [facility] [place] [facility] [address] [id number] [place] [address] May, [facility] [place] [facility] [address] [id number] [place] [address] May, [facility] [place] [facility] [address] [id number] [place] [address] May, [facility] [place] [facility] [id number] [place] [address] May, [facility] [place] [facility] [address] [id number] [place] [address] Apr, [facility] [place] [facility] [address] [id number] [place] [address] Apr, [facility] [place] [facility] [address] [id number] [place] [address] 30 Apr, 2012 [facility] [place] [facility] [address] [id number] [place] [address] 30 Apr, 2012 [facility] [place] [facility] [address] [id number] [place] [address] Apr, 2012 [facility] [place] [facility] [address] [id number] [place] [address] 15 Apr, 2013 [facility] [place] [facility] [address] [id number] [place] [address] 15 Apr, 2013 [facility] [place] [facility] [address] [id number] [place] [address] Apr, [facility] [place] [facility] [address] [id number] [place] [address] 26 Mar, 2012 [facility] [place] [facility] [address] [id number] [place] [address] 24 Mar, 2012 [facility] [place] [facility] [address] [id number] [place] [address] 17 Mar, 2012 [facility] [place] [facility] [address] [id number] [place] [address] 17 Mar, 2012 [facility] [place] [facility] [address] [id number] [place] [address] 11 Mar, 2012 [facility] [place] [facility] [address] [id number] [place] [address] 10 Mar, 2012 [facility] [place] [facility] [address] [id number] [place] [address] 05 Sep, 2012 [facility] [place] [facility] [address] [id number] [place] [address] 04 Mar, 2012 [facility] [place] [facility] [address] [id number] [place] [address] 20 Jan, 2013 [facility] [place] [facility] [address] [id number] [place] [address] 19 Jan, 2013 [facility] [place] [facility] [address] [id number] [place] [address] 14 Jan, 2013 [facility] [place] [facility] [address] [facility] [place] [id number] [facility] [place] [address] 12 Jan, 2013 [facility] [place] [facility] [address] [facility] [place] [id number] [facility] [place] [address] Jan, [facility] [place] [facility] [address] [id number] [facility] [place] [address] 05 Jan, 2013 [facility] [place] [facility] [address] [facility] [place] [id number] [place] [address] Dec, [facility] [place] [facility] [address] [facility] [place] [id number] [place] [address] 24 Dec, 2012 [facility] [place] [facility] [address] [facility] [place] [id number] [place] [address] Dec, [facility] [place] [facility] [address] [id number] [facility] [place] [address] Dec, [facility] [place] [facility] [address] [id number] [facility] [place] [address] 18 Dec, 2012 [facility] [place] [facility] [address] [facility] [place] [id number] [facility] [place] [address] 17 Dec, 2012 [facility] [place] [facility] [address] [id number] [facility] [place] [address] 16 Dec, 2012 [facility] [place] [facility] [address] [id number] [place] [address] 16 Dec, 2012 [facility] [place] [facility] [address] [id number] [facility] [place] [address] 15 Dec, 2012 [facility] [place] [facility] [address] [facility] [place] [id number] [facility] [place] [address] 10 Dec, 2012 [facility] [place] [facility] [address] [id number] [facility] [place] [address] 28 Dec, 2012 [facility] [place] [facility] [address] [facility] [place] [id number] [facility] [place] [address] Dec, [facility] [place] [facility] [address] [id number] [facility] [place] [address] Dec, [facility] [place] [facility] [address] [id number] [facility] [place] [address] 17 Dec, 2012 [facility] [place] [facility] [address] [id number] [place] [address] Dec, [facility] [place] [facility] [address] [id number] [place] [address] Dec, [facility] [place] [facility] [address] [id number] [place] [address] October, [facility] [place] [facility] [address] [id number] [facility] [place] [address] October, [facility] [place] [facility] [address] [id number] [facility] [place] [address] October, [facility] [place] [facility] [address] [id number] [place] [address] October, [facility] [place] [facility] [address] [id number] [place] [address] October, [facility] [place] [facility] [address] [id number] [place] [address] October, [facility] [place] [facility] [address] [id number] [place] [address] October, [facility] [place] [facility] [address] [id number] [place] [address] Oct, [facility] [place] [facility] [address] [id number] [place] [address] Oct, [facility] [place] [facility] [address] [id number] [place] [address] 24 Oct, 2012 [facility] [place] [facility] [address] [id number] [place] [address] Oct, [facility] [place] [facility] [address] [id number] [place] [address] Oct, [facility] [place] [facility] [address] [id number] [place] [address] Oct, [facility] [place] [facility] [address] [id number] [place] [address] Oct, [facility] [address] [id number] [place] [address] 15 Oct, 2012 [facility] [address] [id number] [place] [address] Oct, [facility] [place] [facility] [address] [id number] [place] [address] Oct, [facility] [place] [facility] [address] [id number] [place] [address] Oct, [facility] [place] [facility] [address] [id number] [place] [address] Oct, [facility] [address] [id number] [place] [address] Aug, [facility] [place] [facility] [address] [id number] [place] [address] Aug, [facility] [place] [facility] [address] [id number] [place] [address] Aug, [facility] [place] [facility] [address] [id number] [place] [address] Aug, [facility] [place] [facility] [address] [id number] [place] [address] 05 Aug, 2012 [facility] [place] [facility] [address] [id number] [place] [address] Aug, [facility] [place] [facility] [address] [id number] [place] [address] Aug, [facility] [place] [facility] [address] [id number] [place] [address] 14 Aug, 2012 [facility] [place] [facility] [address] [id number] [place] [address] Aug, [facility] [place] [facility] [address] [id number] [place] [address] Aug, [facility] [place] [facility] [address] [id number] [place] [address] Jul, [facility] [place] [facility] [address] [id number] [place] [address] 15 Jul, 2012 [facility] [place] [facility] [address] [id number] [place] [address] 08 Jul, 2012 [facility] [place] [facility] [address] [id number] [place] [address] 20 Jun, 2012 [facility] [place] [facility] [address] [id number] [place] [address] 18 Jun, 2012 [facility] [place] [facility] [address] [id number] [place] [address] 18 Jun, 2012 [facility] [place] [facility] [address] [id number] [place] [address] 18 Jun, 2012 [facility] [place] [facility] [address] [id number] [place] [address] 18 Jun, 2012 [facility] [place] [facility] [address] [id number] [place] [address] 14 Jun, 2012 [facility] [place] [facility] [address] [id number] [place] [address] 14 Jun, 2012 [facility] [place] [facility] [address] [id number] [place] [address] 13 Jun, 2012 [facility] [place] [facility] [address] [id number] [place] [address] 13 Jun, 2012 [facility] [place] [facility] [address] [id number] [place] [address] 11 Jun, 2012 [facility] [place] [facility] [address] [id number] [place] [address] 11 Jun, 2012 [facility] [place] [facility] [address] [id number] [place] [address] 11 Jun, 2012 [facility] [place] [facility] [address] [id number] [place] [address] 11 Jun, 2012 [facility] [place] [facility] [address] [id number] [place] [address] 07 Jun, 2012 [facility] [place] [facility] [address] [id number] [place] [address] 07 Jun, 2012 [facility] [place] [facility] [address] [id number] [place] [address] Jun, [facility] [place] [facility] [address] [id number] [place] [address] Jun, [facility] [place] [facility] [address] [id number] [place] [address] Jun, [facility] [place] [facility] [address] [id number] [place] [address] Jun, [facility] [place] [facility] [address] [id number] [place] [address] Jun, [facility] [place] [facility] [address] [id number] [place] [address] Jun, [facility] [place] [facility] [address] [id number] [place] [address] Jun, [facility] [place] [facility] [address] [id number] [place] [address] Jun, [facility] [place] [facility] [address] [id number] [place] [address] May, [facility] [place] [facility] [address] [id number] [place] [address] May, [facility] [place] [facility] [address] [id number] [place] [address] May, [facility] [place] [facility] [address] [id number] [place] [address] May, [facility] [place] [facility] [address] [id number] [place] [address] May, [facility] [place] [facility] [address] [id number] [place] [address] May, [facility] [place] [facility] [id number] [place] [address] May, [facility] [place] [facility] [address] [id number] [place] [address] May, [facility] [place] [facility] [address] [id number] [place] [address] 30 Apr, 2011 [facility] [place] [facility] [address] [id number] [place] [address] 30 Apr, 2011 [facility] [place] [facility] [address] [id number] [place] [address] 29 Apr, 2011 [facility] [place] [facility] [address] [id number] [place] [address] Apr, 2011 [facility] [place] [facility] [address] [id number] [place] [address] Apr, [facility] [place] [facility] [address] [id number] [place] [address] Apr, [facility] [place] [facility] [address] [id number] [place] [address] Apr, [facility] [place] [facility] [address] [id number] [place] [address] Apr, [facility] [place] [facility] [address] [id number] [place] [address] Apr, [facility] [place] [facility] [address] [id number] [place] [address] 08 Apr, 2012 [facility] [place] [facility] [address] [id number] [place] [address] 04 Apr, 2012 [facility] [place] [facility] [address] [id number] [place] [address] 02 Apr, 2012 [facility] [place] [facility] [address] [id number] [place] [address] 19 Sep, 2011 [facility] [place] [facility] [address] [id number] [place] [address] 18 Sep, 2011 [facility] [place] [facility] [address] [id number] [place] [address] 12 Sep, 2011 [facility] [place] [facility] [address] [id number] [place] [address] 12 Sep, 2011 [facility] [place] [facility] [address] [facility] [id number] [place] [id number] 12 Mar, 2011 [facility] [place] [facility] [address] [facility] [id number] [place] [id number] Mar, [facility] [place] [facility] [address] [id number] [place] [address] Mar, [facility] [place] [facility] [address] [id number] [place] [address] Jan, [facility] [place] [facility] [address] [id number] [place] [address] Jan, [facility] [place] [facility] [address] [id number] [place] [id number] Jan, [facility] [place] [facility] [address] [id number] [place] [address] Jan, [facility] [place] [facility] [address] [id number] [place] [address] Jan, [facility] [place] [facility] [address] [id number] [place] [address] Jan, [facility] [place] [facility] [address] [id number] [place] [address] Jan, [facility] [place] [facility] [address] [id number] [place] [address] Jan, [facility] [place] [facility] [address] [id number] [place] [address] Jan, [facility] [place] [facility] [address] [id number] [place] [address] Jan, [facility] [place] [facility] [address] [id number] [place] [address] Jan, [facility] [place] [facility] [address] [id number] [place] [address] Dec, [facility] [place] [facility] [address] [id number] [place] [address] Dec, [facility] [place] [facility] [address] [id number] [place] [address] Dec, [facility] [place] [facility] [address] [id number] [place] [address] Dec, [facility] [place] [facility] [address] [id number] [place] [address] 20 Jan, 2012 [facility] [place] [facility] [address] [id number] [facility] [place] [address] 19 Jan, 2012 [facility] [place] [facility] [address] [id number] [place] [address] 18 Jan, 2012 [facility] [place] [facility] [address] [id number] [facility] [place] [address] 17 Jan, 2012 [facility] [place] [facility] [address] [id number] [place] [address] 16 Jan, 2012 [facility] [place] [facility] [address] [id number] [place] [address] Dec, [facility] [place] [facility] [address] [id number] [place] [address] Dec, [facility] [place] [facility] [address] [id number] [place] [address] Dec, [facility] [place] [facility] [address] [id number] [place] [address] Dec, [facility] [place] [facility] [address] [id number] [place] [address] Dec, [facility] [place] [facility] [address] [id number] [place] [address] Dec, [facility] [place] [facility] [address] [id number] [place] [address] Dec, [facility] [place] [facility] [address] [id number] [place] [address] 15 Dec, 2011 [facility] [place] [facility] [address] [id number] [place] [address] Dec, [facility] [place] [facility] [address] [id number] [place] [address] Dec, [facility] [place] [facility] [address] [id number] [place] [address] October, [facility] [place] [facility] [address] [id number] [place] [address] October, [facility] [place] [facility] [address] [id number] [place] [address] October, [facility] [place] [facility] [address] [id number] [place] [address] October, [facility] [place] [facility] [address] [id number] [place] [address] October, [facility] [place] [facility] [address] [id number] [place] [address] October, [facility] [place] [facility] [address] [id number] [place] [address] Oct, [facility] [place] [facility] [address] [id number] [place] [address] Oct, [facility] [place] [facility] [address] [id number] [place] [address] Oct, [facility] [place] [facility] [address] [id number] [place] [address] Oct, [facility] [place] [facility] [address] [id number] [place] [address] Oct, [facility] [place] [facility] [address] [id number] [place] [address] Oct, [facility] [place] [facility] [address] [id number] [place] [address] Oct, [facility] [place] [facility] [address] [id number] [place] [address] Aug, [facility] [place] [facility] [address] [id number] [place] [address] Aug, [facility] [place] [facility] [address] [id number] [place] [address] Aug, [facility] [place] [facility] [address] [id number] [place] [address] Aug, [facility] [place] [facility] [address] [id number] [place] [address] 05 Sep, 2011 [facility] [address] [id number] [place] [address] Aug, [facility] [address] [id number] [place] [address] Aug, [facility] [address] [id number] [place] [address] Aug, [facility] [address] [id number] [place] [address] Aug, [facility] [address] [id number] [place] [address] Jul, [facility] [address] [id number] [place] [address] Jul, [facility] [address] [id number] [place] [address] Jul, [facility] [address] [id number] [place] [address] Jul, [facility] [address] [id number] [place] [address] Jun, [facility] [address] [id number] [place] [address] Jun, [facility] [id number] [place] [address] May, [facility] [address] [id number] [place] [address] May, [facility] [id number] [place] [address] May, [facility] [address] [id number] [place] [address] May, [facility] [address] [id number] [place] [address] May, [facility] [address] [id number] [place] [address] Apr, [facility] [id number] [place] [address] Apr, [facility] [address] [id number] [place] [address] 10 Apr, 2011 [facility] [address] [id number] [place] [address] Jan, [facility] [address] [id number] [place] [address] Dec, [facility] [address] [id number] [place] [address] October, [facility] [id number] [place] [address] Jun, [facility] [id number] [place] [address] Apr, [facility] [address] [id number] [place] [address] Apr, [facility] [address] [id number] [place] [address] Apr, [facility] [address] [id number] [place] [address] Jun, IMMUNIZATIONS No Known Immunizations SOCIAL HISTORY [...]
--- OUTSIDE RECORDS SUMMARY | 2020-01-25 12:31 | XMS REPORT ---
Author Author Quang Mayereen Doctor Organization [facility] Address Unknown Phone Unavailable Care Team Providers Care Gill Net Stringer Name Role Phone Migration, Doctor Unavailable Unavailable PROBLEMS Type Condition ICD9-CM Code [id number] Code Onset Dates Condition S tatus SNOMED Code Problem Chronic hepatitis C without hepatic coma B18.2 Active 026117935 Problem Cannabis abuse F12.10 Active 26211 009 Problem Bipolar 1 disorder F31.9 Active 3 18937660 Problem Attention deficit hyperactivity disorder (ADHD), combi luciano type F90.2 Active 13533953 Problem Attention deficit R41.840 Active 76 664997 Problem Hot flashes due to menopause N95.1 A ctive 385142974 Problem H/O laminectomy Z98.89 Active 1616 51664 Problem Other chronic pain G89.29 Active 8 1836179 Problem Anxiety disorder, unspecified type F41.9 Active 249788290 Problem Bipolar disorder, in partial remission, most rec ent episode hypomanic F31.71 Active 656856184 ALLERGIES No Information ENCOUNTERS Encounter Location Date Diagnosis [place] [address] [address] Jul, [place] [address] [address] Jul, [place] [address] [address] Apr, [place] [address] [address] Mar, Hot flashes due to menopause N95.1 ; Anx iety disorder, unspecified type F41.9 ; Low back pain M54.5 and Encounter for immunization Z23 [facility] [address] [address] Dec, Other chronic pain G89.29 and Low back p ain M54.5 [place] [address] [address] October, [facility] [address] [address] October, [facility] [address] [address] October, [facility] [address] [address] October, Other chronic pain G89.29 and Chronic he patitis C without hepatic coma B18.2 [facility] [address] [address] Aug, Bipolar disorder, in partial remission, most recent episode hypomanic F31.71 ; Attention deficit hyperactivity disorder (ADHD), combined type F90.2 and Anxiety disorder, unspecified type F41.9 [facility] [address] [address] Aug, [facility] [address] [address] Aug, Bipolar disorder, in partial remission, most recent episode hypomanic F31.71 [facility] [address] [address] Aug, [facility] [address] [address] Aug, Bipolar disorder, in partial remission, most recent episode hypomanic F31.71 [facility] [address] [address] Aug, Bipolar disorder, in partial remission, most recent episode hypomanic F31.71 ; Attention deficit hyperactivity disorder (ADHD), combined type F90.2 and Anxiety disorder, unspecified type F41.9 [facility] [address] [address] Aug, Low back pain M54.5 and Pain in left wri st M25.532 [facility] [address] [address] Aug, [place] [address] [address] Jun, [place] [address] [address] Apr, Bipolar disorder, in partial remission, most recent episode hypomanic F31.71 [place] [address] [address] Apr, [place] [address] [address] Apr, Bipolar disorder, in partial remission, most recent episode hypomanic F31.71 ; Attention deficit hyperactivity disorder (ADHD), combined type F90.2 ; Anxiety disorder, unspecified type F41.9 and 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 [place] [address] [address] Apr, Bipolar disorder, in partial remission, most recent episode hypomanic F31.71 [place] [address] [address] Apr, Bipolar disorder, in partial remission, most recent episode hypomanic F31.71 [place] [address] [address] Mar, [place] [address] [address] Mar, Bipolar disorder, in partial remission, most recent episode hypomanic F31.71 ; Encounter for immunization Z23 and Low back pain M54.5 [place] [address] [address] Mar, Bipolar disorder, in partial remission, most recent episode hypomanic F31.71 [place] [address] [address] Mar, Bipolar disorder, in partial remission, most recent episode hypomanic F31.71 [place] [address] [address] Jan, Bipolar disorder, in partial remission, most recent episode hypomanic F31.71 [facility] [address] [id number] [place] [address] Jan, Bipolar disorder, in partial remission, most recent episode hypomanic F31.71 [facility] [address] [id number] [place] [address] Dec, Bipolar disorder, in partial remission, most recent episode hypomanic F31.71 [facility] [address] [place] [id number] [place] [address] Dec, Bipolar disorder, in partial remission, most recent episode hypomanic F31.71 ; Attention deficit hyperactivity disorder (ADHD), combined type F90.2 ; Anxiety disorder, unspecified type F41.9 and 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 [facility] [address] [place] [id number] [place] [address] Dec, Bipolar disorder, in partial remission, most recent episode hypomanic F31.71 [facility] [address] [place] [id number] [place] [address] Dec, Bipolar disorder, in partial remission, most recent episode hypomanic F31.71 [facility] [address] [id number] [place] [address] October, Bipolar disorder, in partial remission, most recent episode hypomanic F31.71 [facility] [address] [place] [id number] [place] [address] October, [facility] [address] [id number] [place] [address] October, [facility] [address] [id number] [place] [address] Oct, Bipolar disorder, in partial remission, most recent episode hypomanic F31.71 ; Attention deficit hyperactivity disorder (ADHD), combined type F90.2 ; Anxiety disorder, unspecified type F41.9 and Encounter for drug screening Z02.83 [facility] [address] [place] [id number] [place] [address] Oct, Bipolar disorder, in partial remission, most recent episode hypomanic F31.71 [facility] [address] [address] Oct, Bipolar disorder, in partial remission, most recent episode hypomanic F31.71 [facility] [address] [place] [id number] [place] [address] Aug, Bipolar disorder, in partial remission, most recent episode hypomanic F31.71 [facility] [address] [address] Aug, Bipolar disorder, in partial remission, most recent episode hypomanic F31.71 [facility] [address] [address] Aug, Bipolar disorder, in partial remission, most recent episode hypomanic F31.71 [place] [address] [address] Jul, Bipolar disorder, in partial remission, most recent episode hypomanic F31.71 ; Attention deficit hyperactivity disorder (ADHD), combined type F90.2 and Anxiety disorder, unspecified type F41.9 [facility] [address] [address] Jul, Bipolar disorder, in partial remission, most recent episode hypomanic F31.71 [place] [address] [address] Jun, Bipolar disorder, in partial remission, most recent episode hypomanic F31.71 [facility] [address] [place] [id number] [place] [address] May, Bipolar disorder, in partial remission, most recent episode hypomanic F31.71 [facility] [address] [address] May, Bipolar disorder, in partial remission, most recent episode hypomanic F31.71 [facility] [address] [address] Apr, [place] [address] [place] [id number] [place] [address] Apr, Bipolar disorder, in partial remission, most recent episode hypomanic F31.71 ; Attention deficit hyperactivity disorder (ADHD), combined type F90.2 ; Anxiety disorder, unspecified type F41.9 and Cannabis abuse F12.10 [facility] [address] [place] [id number] [place] [address] Apr, Attention deficit hyperactivity disorder (ADHD), combined type F90.2 [facility] [address] [address] Mar, Attention deficit hyperactivity disorder (ADHD), combined type F90.2 [place] [address] [address] Mar, Anxiety disorder, unspecified type F41.9 [facility] [address] [address] Jan, Attention deficit hyperactivity disorder (ADHD), combined type F90.2 [facility] [address] [address] Jan, Anxiety disorder, unspecified type F41.9 [place] [address] [address] Jan, Other chronic pain G89.29 ; Chronic hepa titis C without hepatic coma B18.2 and Bipolar 1 disorder F31.9 [facility] [address] [address] Dec, Attention deficit hyperactivity disorder (ADHD), combined type F90.2 [facility] [address] [address] Dec, Bipolar disorder, in partial remission, most recent episode hypomanic F31.71 ; Attention deficit hyperactivity disorder (ADHD), combined type F90.2 and Anxiety disorder, unspecified type F41.9 [facility] [address] [place] [id number] [place] [address] Dec, Bipolar disorder, in partial remission, most recent episode hypomanic F31.71 ; Attention deficit hyperactivity disorder (ADHD), combined type F90.2 and Anxiety disorder, unspecified type F41.9 [facility] [address] [address] Dec, Bipolar 1 disorder F31.9 and Attention d eficit R41.840 [facility] [address] [address] Oct, Other chronic pain G89.29 ; Alopecia L65 .9 and Screening, lipid Z13.220 [facility] [address] [address] Oct, [facility] [address] [address] Aug, [facility] [address] [address] Aug, Eustachian tube dysfunction, right H69.8 1 ; Vertigo R42 and Other chronic pain G89.29 [facility] [address] [address] Aug, [facility] [address] [address] Jun, [facility] [address] [address] Jun, Low back pain M54.5 and Other chronic pa in G89.29 [facility] [address] [address] Jun, [facility] [address] [address] May, [facility] [address] [address] Jan, [facility] [address] [address] Dec, [facility] [address] [address] Dec, [facility] [address] [address] Jun, [facility] [address] [address] Apr, Eustachian tube dysfunction, unspecified laterality H69.80 ; Hot flashes N95.1 and Encounter for immunization Z23 [facility] [address] [address] Jan, [facility] [address] [address] Jan, [facility] [address] [address] Jan, [facility] [address] [address] Jan, [facility] [address] [address] Jan, Encounter to establish care V65.8 ; Bipo lar 1 disorder 296.7 ; Abdominal pain 789.00 ; Constipation 564.00 ; Hard of hearing 389.9 and Drug abuse 305.90 [facility] [address] [address] Dec, [facility] [address] [address] October, [facility] [address] [address] October, [facility] [address] [address] Oct, [facility] [address] [address] Oct, [facility] [address] [address] Oct, [facility] [address] [address] Aug, [facility] [address] [id number] [place] [address] Aug, [facility] [address] [id number] [place] [address] Aug, [facility] [address] [id number] [place] [address] Aug, 2014 [facility] [address] [id number] [place] [address] Aug, 2014 [facility] [address] [id number] [place] [address] Aug, 2014 [facility] [address] [id number] [place] [address] Aug, 2014 [facility] [address] [id number] [place] [address] Aug, 2014 [facility] [address] [id number] [place] [address] Aug, 2014 [facility] [address] [id number] [place] [address] Aug, 2014 [facility] [address] [id number] [place] [address] Aug, 2014 [facility] [address] [id number] [place] [address] Aug, 2014 [facility] [address] [id number] [place] [address] Aug, 2014 [facility] [address] [id number] [place] [address] Aug, 2014 [facility] [address] [id number] [place] [address] Aug, [facility] [address] [id number] [place] [address] Jul, [facility] [address] [id number] [place] [address] Jul, [facility] [address] [id number] [place] [address] Jul, [facility] [address] [facility] [id number] [place] [address] Jul, [facility] [address] [id number] [place] [address] Jul, [facility] [address] [id number] [place] [address] Jul, [facility] [address] [id number] [place] [address] Jul, [facility] [address] [id number] [place] [address] Jul, [facility] [address] [id number] [place] [address] Jun, [facility] [address] [id number] [place] [address] Jun, [facility] [address] [id number] [place] [address] Jun, [facility] [address] [id number] [place] [address] Jun, [facility] [address] [id number] [place] [address] Jun, [facility] [address] [id number] [place] [address] Jun, [facility] [address] [id number] [place] [address] 15 Jun, 2014 [facility] [address] [id number] [place] [address] Jun, [facility] [address] [id number] [place] [address] Jun, [facility] [address] [id number] [place] [address] Jun, [facility] [address] [id number] [place] [address] Jun, [facility] [address] [id number] [place] [address] May, [facility] [address] [id number] [place] [address] May, [facility] [address] [id number] [place] [address] May, [facility] [address] [id number] [place] [address] May, [facility] [address] [id number] [place] [address] May, [facility] [address] [id number] [place] [address] May, [facility] [address] [id number] [place] [address] May, [facility] [address] [id number] [place] [address] Apr, [facility] [address] [id number] [place] [address] Apr, [facility] [address] [id number] [place] [address] Apr, [facility] [address] [id number] [place] [address] Apr, [facility] [address] [id number] [place] [address] Apr, [facility] [address] [id number] [place] [address] Apr, [facility] [address] [id number] [place] [address] 29 Mar, 2014 [facility] [address] [id number] [place] [address] 29 Mar, 2014 [facility] [address] [id number] [place] [address] Mar, [facility] [address] [id number] [place] [address] Mar, [facility] [address] [facility] [id number] [place] [address] Mar, [facility] [address] [facility] [id number] [facility] [place] [address] Mar, [facility] [address] [id number] [place] [address] Jan, [facility] [address] [facility] [id number] [facility] [place] [address] Jan, [facility] [address] [facility] [id number] [place] [address] Jan, [facility] [address] [id number] [place] [address] Jan, [facility] [address] [id number] [place] [address] Dec, [facility] [address] [id number] [place] [address] Dec, [facility] [address] [id number] [place] [address] Dec, [facility] [address] [id number] [place] [address] Dec, [facility] [address] [id number] [place] [address] Dec, [facility] [address] [id number] [place] [address] Dec, [facility] [address] [facility] [id number] [place] [address] Dec, [facility] [address] [facility] [id number] [place] [address] Dec, [facility] [address] [id number] [place] [address] Dec, [facility] [address] [id number] [place] [address] Dec, [facility] [address] [id number] [facility] [place] [address] Dec, [facility] [address] [id number] [place] [address] Dec, [facility] [address] [id number] [place] [address] October, [facility] [address] [id number] [place] [address] October, [facility] [address] [id number] [place] [address] October, [facility] [address] [id number] [place] [address] October, [facility] [address] [id number] [place] [address] October, [facility] [address] [id number] [place] [address] October, [facility] [address] [id number] [place] [address] Oct, [facility] [address] [id number] [place] [address] Oct, [facility] [address] [id number] [place] [address] Oct, [facility] [address] [id number] [place] [address] Oct, [facility] [address] [id number] [place] [address] Oct, [facility] [address] [id number] [place] [address] Oct, [facility] [address] [id number] [place] [address] Oct, [facility] [address] [id number] [place] [address] Oct, [facility] [address] [id number] [place] [address] Oct, [facility] [address] [id number] [place] [address] Oct, [facility] [address] [id number] [place] [address] Oct, [facility] [address] [id number] [place] [address] 08 Oct, 2013 [facility] [address] [id number] [place] [address] Aug, [facility] [address] [id number] [place] [address] Aug, [facility] [address] [id number] [place] [address] Aug, [facility] [address] [id number] [place] [address] Aug, [facility] [address] [id number] [place] [address] Aug, [facility] [address] [id number] [place] [address] Aug, [facility] [address] [id number] [place] [address] Aug, [facility] [address] [id number] [place] [address] Aug, [facility] [address] [id number] [place] [address] Aug, [facility] [address] [id number] [place] [address] Aug, [facility] [address] [id number] [place] [address] Aug, [facility] [address] [id number] [place] [address] Aug, [facility] [address] [id number] [place] [address] Aug, [facility] [address] [id number] [place] [address] 20 Aug, 2013 [facility] [address] [id number] [place] [address] Aug, [facility] [address] [id number] [place] [address] Aug, [facility] [address] [id number] [place] [address] Aug, [facility] [address] [id number] [place] [address] Aug, [facility] [address] [id number] [place] [address] Aug, [facility] [address] [id number] [place] [address] 07 Aug, 2013 [facility] [address] [id number] [place] [address] Aug, [facility] [address] [id number] [place] [address] Aug, [facility] [address] [id number] [place] [address] Aug, [facility] [address] [id number] [place] [address] Aug, [facility] [address] [id number] [place] [address] Aug, [facility] [address] [id number] [place] [address] Jul, [facility] [address] [id number] [place] [address] Jul, [facility] [id number] [place] [address] Jul, [facility] [address] [id number] [place] [address] Jul, [facility] [id number] [place] [address] Jul, [facility] [address] [id number] [place] [address] Jul, [facility] [address] [id number] [place] [address] Jul, [facility] [place] [facility] [address] [id number] [place] [address] Jul, [facility] [place] [facility] [address] [id number] [place] [address] Jul, [facility] [place] [facility] [address] [id number] [place] [address] Jul, [facility] [place] [facility] [address] [id number] [place] [address] Jul, [facility] [place] [facility] [address] [id number] [place] [address] Jul, [facility] [place] [facility] [address] [id number] [place] [address] Jul, [facility] [place] [facility] [address] [id number] [place] [address] Jul, [facility] [place] [facility] [address] [id number] [place] [address] Jul, [facility] [place] [facility] [address] [id number] [place] [address] Jul, [facility] [place] [facility] [address] [id number] [place] [address] Jul, [facility] [place] [facility] [address] [id number] [place] [address] Jul, [facility] [place] [facility] [address] [id number] [place] [address] Jul, [facility] [place] [facility] [address] [id number] [place] [address] Jul, [facility] [place] [facility] [address] [id number] [place] [address] Jun, [facility] [place] [facility] [address] [id number] [place] [address] 31 Jun, 2013 [facility] [place] [facility] [address] [facility] [id number] [place] [address] Jun, [facility] [place] [facility] [address] [facility] [id number] [place] [address] Jun, [facility] [place] [facility] [address] [id number] [place] [address] Jun, [facility] [place] [facility] [address] [id number] [place] [address] Jun, [facility] [place] [facility] [address] [facility] [id number] [place] [address] Jun, [facility] [place] [facility] [address] [id number] [place] [address] Jun, [facility] [place] [facility] [address] [id number] [place] [address] Jun, [facility] [place] [facility] [address] [id number] [place] [address] Jun, [facility] [place] [facility] [address] [id number] [place] [address] Jun, [facility] [place] [facility] [address] [id number] [place] [address] Jun, [facility] [place] [facility] [address] [id number] [place] [address] Jun, [facility] [place] [facility] [address] [id number] [place] [address] Jun, [facility] [place] [facility] [address] [id number] [place] [address] Jun, [facility] [place] [facility] [address] [id number] [place] [address] 18 Jun, 2013 [facility] [place] [facility] [address] [id number] [place] [address] 18 Jun, 2013 [facility] [place] [facility] [address] [id number] [place] [address] 17 Jun, 2013 [facility] [place] [facility] [address] [id number] [place] [address] 17 Jun, 2013 [facility] [place] [facility] [address] [id number] [place] [address] Jun, [facility] [place] [facility] [address] [id number] [place] [address] Jun, [facility] [place] [facility] [address] [id number] [place] [address] Jun, [facility] [place] [facility] [address] [id number] [place] [address] Jun, [facility] [place] [facility] [address] [id number] [place] [address] Jun, [facility] [place] [facility] [address] [id number] [place] [address] Jun, [facility] [place] [facility] [address] [id number] [place] [address] Jun, [facility] [place] [facility] [address] [id number] [place] [address] Jun, [facility] [place] [facility] [address] [id number] [place] [address] May, [facility] [place] [facility] [address] [id number] [place] [address] May, [facility] [place] [facility] [address] [id number] [place] [address] May, [facility] [place] [facility] [address] [id number] [place] [address] May, [facility] [place] [facility] [address] [id number] [place] [address] May, [facility] [place] [facility] [id number] [place] [address] May, [facility] [place] [facility] [address] [id number] [place] [address] Apr, [facility] [place] [facility] [address] [id number] [place] [address] Apr, [facility] [place] [facility] [address] [id number] [place] [address] 30 Apr, 2012 [facility] [place] [facility] [address] [id number] [place] [address] 30 Apr, 2012 [facility] [place] [facility] [address] [id number] [place] [address] Apr, 2012 [facility] [place] [facility] [address] [id number] [place] [address] 15 Apr, 2013 [facility] [place] [facility] [address] [id number] [place] [address] 15 Apr, 2013 [facility] [place] [facility] [address] [id number] [place] [address] Apr, [facility] [place] [facility] [address] [id number] [place] [address] 26 Mar, 2012 [facility] [place] [facility] [address] [id number] [place] [address] 24 Mar, 2012 [facility] [place] [facility] [address] [id number] [place] [address] 17 Mar, 2012 [facility] [place] [facility] [address] [id number] [place] [address] 17 Mar, 2012 [facility] [place] [facility] [address] [id number] [place] [address] 11 Mar, 2012 [facility] [place] [facility] [address] [id number] [place] [address] 10 Mar, 2012 [facility] [place] [facility] [address] [id number] [place] [address] 05 Sep, 2012 [facility] [place] [facility] [address] [id number] [place] [address] 04 Mar, 2012 [facility] [place] [facility] [address] [id number] [place] [address] 20 Jan, 2013 [facility] [place] [facility] [address] [id number] [place] [address] 19 Jan, 2013 [facility] [place] [facility] [address] [id number] [place] [address] 14 Jan, 2013 [facility] [place] [facility] [address] [facility] [id number] [facility] [place] [address] 12 Jan, 2013 [facility] [place] [facility] [address] [facility] [id number] [facility] [place] [address] Jan, [facility] [place] [facility] [address] [id number] [facility] [place] [address] 05 Jan, 2013 [facility] [place] [facility] [address] [facility] [id number] [place] [address] Dec, [facility] [place] [facility] [address] [facility] [id number] [place] [address] 24 Dec, 2012 [facility] [place] [facility] [address] [facility] [id number] [place] [address] Dec, [facility] [place] [facility] [address] [id number] [facility] [place] [address] Dec, [facility] [place] [facility] [address] [id number] [facility] [place] [address] 18 Dec, 2012 [facility] [place] [facility] [address] [facility] [id number] [facility] [place] [address] 17 Dec, 2012 [facility] [place] [facility] [address] [id number] [facility] [place] [address] 16 Dec, 2012 [facility] [place] [facility] [address] [id number] [place] [address] 16 Dec, 2012 [facility] [place] [facility] [address] [id number] [facility] [place] [address] 15 Dec, 2012 [facility] [place] [facility] [address] [facility] [id number] [facility] [place] [address] 10 Dec, 2012 [facility] [place] [facility] [address] [id number] [facility] [place] [address] 28 Dec, 2012 [facility] [place] [facility] [address] [facility] [id number] [facility] [place] [address] Dec, [facility] [place] [facility] [address] [id number] [facility] [place] [address] Dec, [facility] [place] [facility] [address] [id number] [facility] [place] [address] 17 Dec, 2012 [facility] [place] [facility] [address] [id number] [place] [address] Dec, [facility] [place] [facility] [address] [id number] [place] [address] Dec, [facility] [place] [facility] [address] [id number] [place] [address] October, [facility] [place] [facility] [address] [id number] [facility] [place] [address] October, [facility] [place] [facility] [address] [id number] [facility] [place] [address] October, [facility] [place] [facility] [address] [id number] [place] [address] October, [facility] [place] [facility] [address] [id number] [place] [address] October, [facility] [place] [facility] [address] [id number] [place] [address] October, [facility] [place] [facility] [address] [id number] [place] [address] October, [facility] [place] [facility] [address] [id number] [place] [address] Oct, [facility] [place] [facility] [address] [id number] [place] [address] Oct, [facility] [place] [facility] [address] [id number] [place] [address] 24 Oct, 2012 [facility] [place] [facility] [address] [id number] [place] [address] Oct, [facility] [place] [facility] [address] [id number] [place] [address] Oct, [facility] [place] [facility] [address] [id number] [place] [address] Oct, [facility] [place] [facility] [address] [id number] [place] [address] Oct, [facility] [address] [id number] [place] [address] 15 Oct, 2012 [facility] [address] [id number] [place] [address] Oct, [facility] [place] [facility] [address] [id number] [place] [address] Oct, [facility] [place] [facility] [address] [id number] [place] [address] Oct, [facility] [place] [facility] [address] [id number] [place] [address] Oct, [facility] [address] [id number] [place] [address] Aug, [facility] [place] [facility] [address] [id number] [place] [address] Aug, [facility] [place] [facility] [address] [id number] [place] [address] Aug, [facility] [place] [facility] [address] [id number] [place] [address] Aug, [facility] [place] [facility] [address] [id number] [place] [address] 05 Aug, 2012 [facility] [place] [facility] [address] [id number] [place] [address] Aug, [facility] [place] [facility] [address] [id number] [place] [address] Aug, [facility] [place] [facility] [address] [id number] [place] [address] 14 Aug, 2012 [facility] [place] [facility] [address] [id number] [place] [address] Aug, [facility] [place] [facility] [address] [id number] [place] [address] Aug, [facility] [place] [facility] [address] [id number] [place] [address] Jul, [facility] [place] [facility] [address] [id number] [place] [address] 15 Jul, 2012 [facility] [place] [facility] [address] [id number] [place] [address] 08 Jul, 2012 [facility] [place] [facility] [address] [id number] [place] [address] 20 Jun, 2012 [facility] [place] [facility] [address] [id number] [place] [address] 18 Jun, 2012 [facility] [place] [facility] [address] [id number] [place] [address] 18 Jun, 2012 [facility] [place] [facility] [address] [id number] [place] [address] 18 Jun, 2012 [facility] [place] [facility] [address] [id number] [place] [address] 18 Jun, 2012 [facility] [place] [facility] [address] [id number] [place] [address] 14 Jun, 2012 [facility] [place] [facility] [address] [id number] [place] [address] 14 Jun, 2012 [facility] [place] [facility] [address] [id number] [place] [address] 13 Jun, 2012 [facility] [place] [facility] [address] [id number] [place] [address] 13 Jun, 2012 [facility] [place] [facility] [address] [id number] [place] [address] 11 Jun, 2012 [facility] [place] [facility] [address] [id number] [place] [address] 11 Jun, 2012 [facility] [place] [facility] [address] [id number] [place] [address] 11 Jun, 2012 [facility] [place] [facility] [address] [id number] [place] [address] 11 Jun, 2012 [facility] [place] [facility] [address] [id number] [place] [address] 07 Jun, 2012 [facility] [place] [facility] [address] [id number] [place] [address] 07 Jun, 2012 [facility] [place] [facility] [address] [id number] [place] [address] Jun, [facility] [place] [facility] [address] [id number] [place] [address] Jun, [facility] [place] [facility] [address] [id number] [place] [address] Jun, [facility] [place] [facility] [address] [id number] [place] [address] Jun, [facility] [place] [facility] [address] [id number] [place] [address] Jun, [facility] [place] [facility] [address] [id number] [place] [address] Jun, [facility] [place] [facility] [address] [id number] [place] [address] Jun, [facility] [place] [facility] [address] [id number] [place] [address] Jun, [facility] [place] [facility] [address] [id number] [place] [address] May, [facility] [place] [facility] [address] [id number] [place] [address] May, [facility] [place] [facility] [address] [id number] [place] [address] May, [facility] [place] [facility] [address] [id number] [place] [address] May, [facility] [place] [facility] [address] [id number] [place] [address] May, [facility] [place] [facility] [address] [id number] [place] [address] May, [facility] [place] [facility] [address] [id number] [place] [address] May, [facility] [place] [facility] [address] [id number] [place] [address] May, [facility] [place] [facility] [address] [id number] [place] [address] 30 Apr, 2011 [facility] [place] [facility] [address] [id number] [place] [address] 30 Apr, 2011 [facility] [place] [facility] [address] [id number] [place] [address] 29 Apr, 2011 [facility] [place] [facility] [address] [id number] [place] [address] Apr, 2011 [facility] [place] [facility] [address] [id number] [place] [address] Apr, [facility] [place] [facility] [address] [id number] [place] [address] Apr, [facility] [place] [facility] [address] [id number] [place] [address] Apr, [facility] [place] [facility] [address] [id number] [place] [address] Apr, [facility] [place] [facility] [address] [id number] [place] [address] Apr, [facility] [place] [facility] [address] [id number] [place] [address] 08 Apr, 2012 [facility] [place] [facility] [address] [id number] [place] [address] 04 Apr, 2012 [facility] [place] [facility] [address] [id number] [place] [address] 02 Apr, 2012 [facility] [place] [facility] [address] [id number] [place] [address] 19 Sep, 2011 [facility] [place] [facility] [address] [id number] [place] [address] 18 Sep, 2011 [facility] [place] [facility] [address] [id number] [place] [address] 12 Sep, 2011 [facility] [place] [facility] [address] [id number] [place] [address] 12 Sep, 2011 [facility] [place] [facility] [address] [facility] [id number] [place] [id number] 12 Mar, 2011 [facility] [place] [facility] [address] [facility] [id number] [place] [id number] Mar, [facility] [place] [facility] [address] [id number] [place] [address] Mar, [facility] [place] [facility] [address] [id number] [place] [address] Jan, [facility] [place] [facility] [address] [id number] [place] [address] Jan, [facility] [place] [facility] [address] [id number] [place] [id number] Jan, [facility] [place] [facility] [address] [id number] [place] [id number] Jan, [facility] [place] [facility] [address] [id number] [place] [address] Jan, [facility] [place] [facility] [address] [id number] [place] [address] Jan, [facility] [address] [id number] [place] [address] Jan, [facility] [address] [id number] [place] [address] Jan, [facility] [address] [id number] [place] [address] Jan, [facility] [address] [id number] [place] [address] Jan, [facility] [address] [id number] [place] [address] Jan, [facility] [address] [id number] [place] [address] Dec, [facility] [address] [id number] [place] [address] Dec, [facility] [address] [id number] [place] [address] Dec, [facility] [address] [id number] [place] [address] Dec, [facility] [address] [id number] [place] [address] 20 Jan, 2012 [facility] [address] [id number] [facility] [place] [address] 19 Jan, 2012 [facility] [address] [id number] [place] [address] 18 Jan, 2012 [facility] [address] [id number] [facility] [place] [address] 17 Jan, 2012 [facility] [address] [id number] [place] [address] 16 Jan, 2012 [facility] [address] [id number] [place] [address] Dec, [facility] [address] [id number] [place] [address] Dec, [facility] [address] [id number] [place] [address] Dec, [facility] [address] [id number] [place] [address] Dec, [facility] [address] [id number] [place] [address] Dec, [facility] [address] [id number] [place] [address] Dec, [facility] [address] [id number] [place] [address] Dec, [facility] [address] [id number] [place] [address] 15 Dec, 2011 [facility] [address] [id number] [place] [address] Dec, [facility] [address] [id number] [place] [address] Dec, [facility] [address] [id number] [place] [address] October, [facility] [address] [id number] [place] [address] October, [facility] [address] [id number] [place] [address] October, [facility] [address] [id number] [place] [address] October, [facility] [address] [id number] [place] [address] October, [facility] [address] [id number] [place] [address] October, [facility] [address] [id number] [place] [address] Oct, [facility] [address] [id number] [place] [address] Oct, [facility] [address] [id number] [place] [address] Oct, [facility] [address] [id number] [place] [address] Oct, [facility] [address] [id number] [place] [address] Oct, [facility] [address] [id number] [place] [address] Oct, [facility] [address] [id number] [place] [address] Oct, [facility] [address] [id number] [place] [address] Aug, [facility] [address] [id number] [place] [address] Aug, [facility] [address] [id number] [place] [address] Aug, [facility] [address] [id number] [place] [address] Aug, [facility] [address] [id number] [place] [address] 05 Sep, 2011 [facility] [address] [id number] [place] [address] Aug, [facility] [address] [id number] [place] [address] Aug, [facility] [address] [id number] [place] [address] Aug, [facility] [address] [id number] [place] [address] Aug, [facility] [address] [id number] [place] [address] Jul, [facility] [address] [id number] [place] [address] Jul, [facility] [address] [id number] [place] [address] Jul, [facility] [address] [id number] [place] [address] Jul, [facility] [address] [id number] [place] [address] Jun, [facility] [address] [id number] [place] [address] Jun, [facility] [id number] [place] [address] May, [facility] [address] [id number] [place] [address] May, [facility] [id number] [place] [address] May, [facility] [address] [id number] [place] [address] May, [facility] [address] [id number] [place] [address] May, [facility] [address] [id number] [place] [address] Apr, [facility] [id number] [place] [address] Apr, [facility] [address] [id number] [place] [address] 10 Apr, 2011 [facility] [address] [id number] [place] [address] Jan, [facility] [address] [id number] [place] [address] Dec, [facility] [address] [id number] [place] [address] October, [facility] [id number] [place] [address] Jun, [facility] [id number] [place] [address] Apr, [facility] [address] [id number] [place] [address] Apr, [facility] [address] [id number] [place] [address] Apr, [facility] [address] [id number] [place] [address] Jun, IMMUNIZATIONS No Known Immunizations SOCIAL HISTORY [...]
--- OUTSIDE RECORDS SUMMARY | 2020-01-25 12:31 | XMS REPORT ---
Author Author Ana Iraheta Organization [facility] Address [address] [place] [address] Care Team Providers Care Career Information Specialist Name Role Phone MELISA Iraheta Unavailable PROBLEMS Type Condition ICD9-CM Code MVH70-UN Code Onset Dates Condition S tatus SNOMED Code Problem Chronic hepatitis C without hepatic coma B18.2 Active 246283342 Problem Cannabis abuse F12.10 Active 67381 009 Problem Bipolar 1 disorder F31.9 Active 3 63503037 Problem Attention deficit hyperactivity disorder (ADHD), combi luciano type F90.2 Active 92155021 Problem Attention deficit R41.840 Active 76 166835 Problem Hot flashes due to menopause N95.1 A ctive 840113962 Problem H/O laminectomy Z98.89 Active 1616 16932 Problem Other chronic pain G89.29 Active 8 5644956 Problem Anxiety disorder, unspecified type F41.9 Active 841958628 Problem Bipolar disorder, in partial remission, most rec ent episode hypomanic F31.71 Active [id number] ALLERGIES No Information ENCOUNTERS Encounter Location Date Diagnosis [place] [address] [address] Jul, [facility] [address] [address] Jul, [facility] [address] [address] Apr, [place] [address] [address] Mar, Hot flashes due to menopause N95.1 ; Anx iety disorder, unspecified type F41.9 ; Low back pain M54.5 and Encounter for immunization Z23 [facility] [address] [address] Dec, Other chronic pain G89.29 and Low back p ain M54.5 [facility] [address] [address] October, [facility] [address] [address] October, [facility] [address] [address] October, [facility] [address] [address] October, Other chronic pain G89.29 and Chronic he patitis C without hepatic coma B18.2 [facility] [address] [address] Aug, Bipolar disorder, in partial remission, most recent episode hypomanic F31.71 ; Attention deficit hyperactivity disorder (ADHD), combined type F90.2 and Anxiety disorder, unspecified type F41.9 [facility] [address] [address] Aug, [facility] [address] [address] Aug, Bipolar disorder, in partial remission, most recent episode hypomanic F31.71 [facility] [address] [address] 14 Aug, 2018 [facility] [address] [address] Aug, Bipolar disorder, in partial remission, most recent episode hypomanic F31.71 [facility] [address] [address] Aug, Bipolar disorder, in partial remission, most recent episode hypomanic F31.71 ; Attention deficit hyperactivity disorder (ADHD), combined type F90.2 and Anxiety disorder, unspecified type F41.9 [facility] [address] [address] Aug, Low back pain M54.5 and Pain in left wri st M25.532 [facility] [address] [address] Aug, [facility] [address] [address] Jun, [facility] [address] [address] Apr, Bipolar disorder, in partial remission, most recent episode hypomanic F31.71 [place] [address] [address] Apr, [place] [address] [address] Apr, Bipolar disorder, in partial remission, most recent episode hypomanic F31.71 ; Attention deficit hyperactivity disorder (ADHD), combined type F90.2 ; Anxiety disorder, unspecified type F41.9 and Other skilled nursing (current) 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 Z79.899 [place] [address] [address] Apr, Bipolar disorder, in partial remission, most recent episode hypomanic F31.71 [place] [address] [address] Apr, Bipolar disorder, in partial remission, most recent episode hypomanic F31.71 [place] [address] [address] Mar, [place] [address] [address] Mar, Bipolar disorder, in partial remission, most recent episode hypomanic F31.71 ; Encounter for immunization Z23 and Low back pain M54.5 [place] [address] [address] Mar, Bipolar disorder, in partial remission, most recent episode hypomanic F31.71 [place] [address] [address] Mar, Bipolar disorder, in partial remission, most recent episode hypomanic F31.71 [facility] [address] [id number] [place] [address] Jan, Bipolar disorder, in partial remission, most recent episode hypomanic F31.71 [facility] [address] [id number] [place] [address] Jan, Bipolar disorder, in partial remission, most recent episode hypomanic F31.71 [facility] [address] [id number] [place] [address] Dec, Bipolar disorder, in partial remission, most recent episode hypomanic F31.71 [facility] [address] [id number] [place] [address] Dec, Bipolar disorder, in partial remission, most recent episode hypomanic F31.71 ; Attention deficit hyperactivity disorder (ADHD), combined type F90.2 ; Anxiety disorder, unspecified type F41.9 and 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 [facility] [address] [place] [id number] [place] [address] Dec, Bipolar disorder, in partial remission, most recent episode hypomanic F31.71 [facility] [address] [id number] [place] [address] Dec, Bipolar disorder, in partial remission, most recent episode hypomanic F31.71 [facility] [address] [id number] [place] [address] October, Bipolar disorder, in partial remission, most recent episode hypomanic F31.71 [facility] [address] [id number] [place] [address] October, [facility] [address] [id number] [place] [address] October, [facility] [address] [id number] [place] [address] Oct, Bipolar disorder, in partial remission, most recent episode hypomanic F31.71 ; Attention deficit hyperactivity disorder (ADHD), combined type F90.2 ; Anxiety disorder, unspecified type F41.9 and Encounter for drug screening Z02.83 [facility] [address] [place] [id number] [place] [address] Oct, Bipolar disorder, in partial remission, most recent episode hypomanic F31.71 [facility] [address] [place] [id number] [place] [address] Oct, Bipolar disorder, in partial remission, most recent episode hypomanic F31.71 [facility] [address] [address] Aug, Bipolar disorder, in partial remission, most recent episode hypomanic F31.71 [facility] [address] [address] Aug, Bipolar disorder, in partial remission, most recent episode hypomanic F31.71 [place] [address] [place] [id number] [place] [address] Aug, Bipolar disorder, in partial remission, most recent episode hypomanic F31.71 [facility] [address] [place] [id number] [place] [address] Jul, Bipolar disorder, in partial remission, most recent episode hypomanic F31.71 ; Attention deficit hyperactivity disorder (ADHD), combined type F90.2 and Anxiety disorder, unspecified type F41.9 [facility] [address] [place] [id number] [place] [address] Jul, Bipolar disorder, in partial remission, most recent episode hypomanic F31.71 [facility] [address] [place] [id number] [place] [address] Jun, Bipolar disorder, in partial remission, most recent episode hypomanic F31.71 [place] [address] [place] [id number] [place] [address] May, Bipolar disorder, in partial remission, most recent episode hypomanic F31.71 [facility] [address] [place] [id number] [place] [address] May, Bipolar disorder, in partial remission, most recent episode hypomanic F31.71 [place] [address] [address] Apr, [place] [address] [address] Apr, Bipolar disorder, in partial remission, most recent episode hypomanic F31.71 ; Attention deficit hyperactivity disorder (ADHD), combined type F90.2 ; Anxiety disorder, unspecified type F41.9 and Cannabis abuse F12.10 [place] [address] [address] Apr, Attention deficit hyperactivity disorder (ADHD), combined type F90.2 [place] [address] [address] Mar, Attention deficit hyperactivity disorder (ADHD), combined type F90.2 [place] [address] [address] 14 Mar, 2017 Anxiety disorder, unspecified type F41.9 [place] [address] [address] Jan, Attention deficit hyperactivity disorder (ADHD), combined type F90.2 [place] [address] [address] Jan, Anxiety disorder, unspecified type F41.9 [place] [address] [address] Jan, Other chronic pain G89.29 ; Chronic hepa titis C without hepatic coma B18.2 and Bipolar 1 disorder F31.9 [place] [address] [address] Dec, Attention deficit hyperactivity disorder (ADHD), combined type F90.2 [place] [address] [address] Dec, Bipolar disorder, in partial remission, most recent episode hypomanic F31.71 ; Attention deficit hyperactivity disorder (ADHD), combined type F90.2 and Anxiety disorder, unspecified type F41.9 [place] [address] [address] Dec, Bipolar disorder, in partial remission, most recent episode hypomanic F31.71 ; Attention deficit hyperactivity disorder (ADHD), combined type F90.2 and Anxiety disorder, unspecified type F41.9 [facility] [address] [address] Dec, Bipolar 1 disorder F31.9 and Attention d eficit R41.840 [place] [address] [address] Oct, Other chronic pain G89.29 ; Alopecia L65 .9 and Screening, lipid Z13.220 [place] [address] [address] Oct, [place] [address] [address] Aug, [address] [address] Aug, Eustachian tube dysfunction, right H69.8 1 ; Vertigo R42 and Other chronic pain G89.29 [place] [address] [address] Aug, [place] [address] [address] Jun, [place] [address] [address] Jun, Low back pain M54.5 and Other chronic pa in G89.29 [place] [address] [address] Jun, [place] [address] [address] May, [facility] [address] [address] Jan, [place] [address] [address] Dec, [facility] [address] [address] Dec, [facility] [address] [address] Jun, [facility] [address] [address] Apr, Eustachian tube dysfunction, unspecified laterality H69.80 ; Hot flashes N95.1 and Encounter for immunization Z23 [facility] [address] [address] Jan, [facility] [address] [address] Jan, [facility] [address] [address] Jan, [facility] [address] [address] Jan, [facility] [address] [address] Jan, Encounter to establish care V65.8 ; Bipo lar 1 disorder 296.7 ; Abdominal pain 789.00 ; Constipation 564.00 ; Hard of hearing 389.9 and Drug abuse 305.90 [facility] [address] [address] Dec, [facility] [address] [address] October, [facility] [address] [address] October, [facility] [address] [address] Oct, [facility] [address] [address] Oct, [facility] [address] [address] Oct, [facility] [address] [id number] [place] [address] Aug, [facility] [address] [id number] [place] [address] Aug, [facility] [address] [id number] [place] [address] Aug, [facility] [address] [id number] [place] [address] Aug, 2014 [facility] [address] [id number] [place] [address] Aug, 2014 [facility] [address] [id number] [place] [address] Aug, 2014 [facility] [address] [id number] [place] [address] Aug, 2014 [facility] [address] [id number] [place] [address] Aug, 2014 [facility] [address] [id number] [place] [address] Aug, 2014 [facility] [address] [id number] [place] [address] Aug, 2014 [facility] [address] [id number] [place] [address] Aug, 2014 [facility] [address] [id number] [place] [address] Aug, 2014 [facility] [address] [id number] [place] [address] Aug, 2014 [facility] [address] [id number] [place] [address] Aug, 2014 [facility] [address] [id number] [place] [address] Aug, 2014 [facility] [address] [id number] [place] [address] Jul, [facility] [address] [id number] [place] [address] Jul, [facility] [address] [facility] [id number] [place] [address] Jul, [facility] [address] [id number] [place] [address] Jul, [facility] [address] [id number] [place] [address] Jul, [facility] [address] [id number] [place] [address] Jul, [facility] [address] [id number] [place] [address] Jul, [facility] [address] [id number] [place] [address] Jul, [facility] [address] [id number] [place] [address] Jun, [facility] [address] [id number] [place] [address] Jun, [facility] [address] [id number] [place] [address] Jun, [facility] [address] [id number] [place] [address] Jun, [facility] [address] [id number] [place] [address] Jun, [facility] [address] [id number] [place] [address] 15 Jun, 2014 [facility] [address] [id number] [place] [address] Jun, [facility] [address] [id number] [place] [address] Jun, [facility] [address] [id number] [place] [address] Jun, [facility] [address] [id number] [place] [address] Jun, [facility] [address] [id number] [place] [address] Jun, [facility] [address] [id number] [place] [address] May, [facility] [address] [id number] [place] [address] May, [facility] [address] [id number] [place] [address] May, [facility] [address] [id number] [place] [address] May, [facility] [address] [id number] [place] [address] May, [facility] [address] [id number] [place] [address] May, [facility] [address] [place] [id number] [place] [address] May, [facility] [address] [id number] [place] [address] Apr, [facility] [address] [id number] [place] [address] Apr, [facility] [address] [id number] [place] [address] Apr, [facility] [address] [id number] [place] [address] Apr, [facility] [address] [id number] [place] [address] Apr, [facility] [address] [id number] [place] [address] Apr, [facility] [address] [place] [id number] [place] [address] 29 Mar, 2014 [facility] [address] [id number] [place] [address] 29 Mar, 2014 [facility] [address] [id number] [place] [address] Mar, [facility] [address] [facility] [id number] [place] [address] Mar, [facility] [address] [facility] [id number] [place] [address] Mar, [facility] [address] [id number] [place] [address] Mar, [facility] [address] [facility] [id number] [place] [address] Jan, [facility] [address] [facility] [id number] [place] [address] Jan, [facility] [address] [id number] [place] [address] Jan, [facility] [address] [id number] [place] [address] Jan, [facility] [address] [id number] [place] [address] Dec, [facility] [address] [facility] [id number] [place] [address] Dec, [facility] [address] [id number] [place] [address] Dec, [facility] [address] [id number] [place] [address] Dec, [facility] [address] [id number] [place] [address] Dec, [facility] [address] [facility] [id number] [place] [address] Dec, [facility] [address] [id number] [place] [address] Dec, [facility] [address] [facility] [id number] [place] [address] Dec, [facility] [address] [id number] [place] [address] Dec, [facility] [address] [id number] [facility] [place] [address] Dec, [facility] [address] [id number] [place] [address] Dec, [facility] [address] [id number] [place] [address] Dec, [facility] [address] [id number] [place] [address] October, [facility] [address] [id number] [place] [address] October, [facility] [address] [id number] [place] [address] October, [facility] [address] [id number] [place] [address] October, [facility] [address] [id number] [place] [address] October, [facility] [address] [id number] [place] [address] October, [facility] [address] [id number] [place] [address] Oct, [facility] [address] [id number] [place] [address] Oct, [facility] [address] [id number] [place] [address] Oct, [facility] [address] [id number] [place] [address] Oct, [facility] [address] [id number] [place] [address] Oct, [facility] [address] [id number] [place] [address] Oct, [facility] [address] [id number] [place] [address] Oct, [facility] [address] [id number] [place] [address] Oct, [facility] [address] [id number] [place] [address] Oct, [facility] [address] [id number] [place] [address] Oct, [facility] [address] [id number] [place] [address] Oct, [facility] [address] [id number] [place] [address] Oct, [facility] [address] [id number] [place] [address] Aug, [facility] [address] [id number] [place] [address] Aug, [facility] [address] [id number] [place] [address] Aug, [facility] [address] [id number] [place] [address] Aug, [facility] [address] [id number] [place] [address] Aug, [facility] [address] [id number] [place] [address] Aug, [facility] [address] [id number] [place] [address] Aug, [facility] [address] [id number] [place] [address] Aug, [facility] [address] [id number] [place] [address] Aug, [facility] [address] [id number] [place] [address] Aug, [facility] [address] [id number] [place] [address] Aug, [facility] [address] [id number] [place] [address] Aug, [facility] [address] [id number] [place] [address] Aug, [facility] [address] [id number] [place] [address] Aug, [facility] [address] [id number] [place] [address] Aug, [facility] [address] [id number] [place] [address] Aug, [facility] [address] [id number] [place] [address] Aug, [facility] [address] [id number] [place] [address] Aug, [facility] [address] [id number] [place] [address] 07 Aug, 2013 [facility] [address] [id number] [place] [address] Aug, [facility] [address] [id number] [place] [address] Aug, [facility] [address] [id number] [place] [address] Aug, [facility] [address] [id number] [place] [address] Aug, [facility] [address] [id number] [place] [address] Aug, [facility] [address] [id number] [place] [address] Aug, [facility] [address] [id number] [place] [address] Jul, [facility] [address] [id number] [place] [address] Jul, [facility] [address] [id number] [place] [address] Jul, [facility] [id number] [place] [address] Jul, [facility] [address] [id number] [place] [address] Jul, [facility] [address] [id number] [place] [address] Jul, [facility] [address] [id number] [place] [address] Jul, [facility] [address] [id number] [place] [address] Jul, [facility] [address] [id number] [place] [address] Jul, [facility] [place] [facility] [address] [id number] [place] [address] Jul, [facility] [place] [facility] [address] [id number] [place] [address] Jul, [facility] [place] [facility] [address] [id number] [place] [address] Jul, [facility] [place] [facility] [address] [id number] [place] [address] Jul, [facility] [place] [facility] [address] [id number] [place] [address] Jul, [facility] [place] [facility] [address] [id number] [place] [address] Jul, [facility] [place] [facility] [address] [id number] [place] [address] Jul, [facility] [place] [facility] [address] [id number] [place] [address] Jul, [facility] [place] [facility] [address] [id number] [place] [address] Jul, [facility] [place] [facility] [address] [id number] [place] [address] Jul, [facility] [place] [facility] [address] [id number] [place] [address] Jul, [facility] [place] [facility] [address] [id number] [place] [address] Jun, [facility] [place] [facility] [address] [facility] [id number] [place] [address] Jun, [facility] [place] [facility] [address] [facility] [id number] [place] [address] Jun, [facility] [place] [facility] [address] [id number] [place] [address] Jun, [facility] [place] [facility] [address] [id number] [place] [address] Jun, [facility] [place] [facility] [address] [facility] [id number] [place] [address] Jun, [facility] [place] [facility] [address] [id number] [place] [address] Jun, [facility] [place] [facility] [address] [id number] [place] [address] Jun, [facility] [place] [facility] [address] [id number] [place] [address] Jun, [facility] [place] [facility] [address] [id number] [place] [address] Jun, [facility] [place] [facility] [address] [id number] [place] [address] Jun, [facility] [place] [facility] [address] [id number] [place] [address] Jun, [facility] [place] [facility] [address] [id number] [place] [address] Jun, [facility] [place] [facility] [address] [id number] [place] [address] Jun, [facility] [place] [facility] [address] [id number] [place] [address] Jun, [facility] [place] [facility] [address] [id number] [place] [address] Jun, [facility] [place] [facility] [address] [id number] [place] [address] Jun, [facility] [place] [facility] [address] [id number] [place] [address] 17 Jun, 2013 [facility] [place] [facility] [address] [id number] [place] [address] 17 Jun, 2013 [facility] [place] [facility] [address] [id number] [place] [address] Jun, [facility] [place] [facility] [address] [id number] [place] [address] Jun, [facility] [place] [facility] [address] [id number] [place] [address] Jun, [facility] [place] [facility] [address] [id number] [place] [address] Jun, [facility] [place] [facility] [address] [id number] [place] [address] Jun, [facility] [place] [facility] [address] [id number] [place] [address] Jun, [facility] [place] [facility] [address] [id number] [place] [address] Jun, [facility] [place] [facility] [address] [id number] [place] [address] Jun, [facility] [place] [facility] [address] [id number] [place] [address] May, [facility] [place] [facility] [address] [id number] [place] [address] May, [facility] [place] [facility] [address] [id number] [place] [address] May, [facility] [place] [facility] [address] [id number] [place] [address] May, [facility] [place] [facility] [id number] [place] [address] May, [facility] [place] [facility] [address] [id number] [place] [address] May, [facility] [place] [facility] [address] [id number] [place] [address] Apr, [facility] [place] [facility] [address] [id number] [place] [address] 30 Apr, 2012 [facility] [place] [facility] [address] [id number] [place] [address] 30 Apr, 2012 [facility] [place] [facility] [address] [id number] [place] [address] 30 Apr, 2012 [facility] [place] [facility] [address] [id number] [place] [address] Apr, 2012 [facility] [place] [facility] [address] [id number] [place] [address] 15 Apr, 2012 [facility] [place] [facility] [address] [id number] [place] [address] 15 Apr, 2012 [facility] [place] [facility] [address] [id number] [place] [address] Apr, [facility] [place] [facility] [address] [id number] [place] [address] 26 Mar, 2012 [facility] [place] [facility] [address] [id number] [place] [address] 24 Sep, 2012 [facility] [place] [facility] [address] [id number] [place] [address] 17 Sep, 2012 [facility] [place] [facility] [address] [id number] [place] [address] 17 Sep, 2012 [facility] [place] [facility] [address] [id number] [place] [address] 11 Mar, 2012 [facility] [place] [facility] [address] [id number] [place] [address] 10 Sep, 2012 [facility] [place] [facility] [address] [id number] [place] [address] 05 Sep, 2012 [facility] [place] [facility] [address] [id number] [place] [address] 04 Sep, 2012 [facility] [place] [facility] [address] [id number] [place] [address] 20 Jan, 2012 [facility] [place] [facility] [address] [id number] [place] [address] Jan, [facility] [place] [facility] [address] [facility] [id number] [facility] [place] [address] Jan, [facility] [place] [facility] [address] [facility] [id number] [place] [address] Jan, [facility] [place] [facility] [address] [facility] [id number] [facility] [place] [address] Jan, [facility] [place] [facility] [address] [facility] [id number] [place] [address] Jan, [facility] [place] [facility] [address] [facility] [id number] [place] [address] Dec, [facility] [place] [facility] [address] [facility] [id number] [place] [address] 24 Dec, 2012 [facility] [place] [facility] [address] [id number] [facility] [place] [address] Dec, [facility] [place] [facility] [address] [id number] [facility] [place] [address] Dec, [facility] [place] [facility] [address] [facility] [id number] [facility] [place] [address] Dec, [facility] [place] [facility] [address] [id number] [facility] [place] [address] 17 Dec, 2012 [facility] [place] [facility] [address] [id number] [facility] [place] [address] 16 Dec, 2012 [facility] [place] [facility] [address] [id number] [facility] [place] [address] 16 Dec, 2012 [facility] [place] [facility] [address] [facility] [id number] [place] [address] 15 Dec, 2012 [facility] [place] [facility] [address] [facility] [id number] [facility] [place] [address] Dec, [facility] [place] [facility] [address] [facility] [id number] [facility] [place] [address] Dec, [facility] [place] [facility] [address] [id number] [facility] [place] [address] Dec, [facility] [place] [facility] [address] [id number] [facility] [place] [address] Dec, [facility] [place] [facility] [address] [id number] [place] [address] Dec, [facility] [place] [facility] [address] [id number] [place] [address] Dec, [facility] [place] [facility] [address] [id number] [place] [address] Dec, [facility] [place] [facility] [address] [id number] [place] [address] October, [facility] [place] [facility] [address] [id number] [place] [address] October, [facility] [place] [facility] [address] [id number] [place] [address] October, [facility] [place] [facility] [address] [id number] [place] [address] October, [facility] [place] [facility] [address] [id number] [place] [address] October, [facility] [place] [facility] [address] [id number] [place] [address] October, [facility] [place] [facility] [address] [id number] [place] [address] October, [facility] [place] [facility] [address] [id number] [place] [address] Oct, [facility] [place] [facility] [address] [id number] [place] [address] Oct, [facility] [place] [facility] [address] [id number] [place] [address] Oct, [facility] [place] [facility] [address] [id number] [place] [address] Oct, [facility] [place] [facility] [address] [id number] [place] [address] Oct, [facility] [place] [facility] [address] [id number] [place] [address] Oct, [facility] [address] [id number] [place] [address] 17 Oct, 2012 [facility] [place] [facility] [address] [id number] [place] [address] 15 Oct, 2012 [facility] [place] [facility] [address] [id number] [place] [address] 12 Oct, 2012 [facility] [place] [facility] [address] [id number] [place] [address] Oct, [facility] [place] [facility] [address] [id number] [place] [address] Oct, [facility] [place] [facility] [address] [id number] [place] [address] Oct, [facility] [place] [facility] [address] [id number] [place] [address] Aug, [facility] [place] [facility] [address] [id number] [place] [address] Aug, [facility] [place] [facility] [address] [id number] [place] [address] Aug, [facility] [place] [facility] [address] [id number] [place] [address] Aug, [facility] [place] [facility] [address] [id number] [place] [address] 05 Aug, 2012 [facility] [place] [facility] [address] [id number] [place] [address] 05 Aug, 2012 [facility] [place] [facility] [address] [id number] [place] [address] 20 Aug, 2012 [facility] [place] [facility] [address] [id number] [place] [address] 14 Aug, 2012 [facility] [place] [facility] [address] [id number] [place] [address] 12 Aug, 2012 [facility] [place] [facility] [address] [id number] [place] [address] Aug, [facility] [place] [facility] [address] [id number] [place] [address] 29 Jul, 2012 [facility] [place] [facility] [address] [id number] [place] [address] 15 Jul, 2012 [facility] [place] [facility] [address] [id number] [place] [address] 08 Jul, 2012 [facility] [place] [facility] [address] [id number] [place] [address] 20 Jun, 2012 [facility] [place] [facility] [address] [id number] [place] [address] 18 Jun, 2012 [facility] [place] [facility] [address] [id number] [place] [address] 18 Jun, 2012 [facility] [place] [facility] [address] [id number] [place] [address] 18 Jun, 2012 [facility] [place] [facility] [address] [id number] [place] [address] 18 Jun, 2012 [facility] [place] [facility] [address] [id number] [place] [address] 14 Jun, 2012 [facility] [place] [facility] [address] [id number] [place] [address] 14 Jun, 2012 [facility] [place] [facility] [address] [id number] [place] [address] 13 Jun, 2012 [facility] [place] [facility] [address] [id number] [place] [address] 13 Jun, 2012 [facility] [place] [facility] [address] [id number] [place] [address] 11 Jun, 2012 [facility] [place] [facility] [address] [id number] [place] [address] 11 Jun, 2012 [facility] [place] [facility] [address] [id number] [place] [address] 11 Jun, 2012 [facility] [place] [facility] [address] [id number] [place] [address] 11 Jun, 2012 [facility] [place] [facility] [address] [id number] [place] [address] 07 Jun, 2012 [facility] [place] [facility] [address] [id number] [place] [address] Jun, [facility] [place] [facility] [address] [id number] [place] [address] Jun, [facility] [place] [facility] [address] [id number] [place] [address] Jun, [facility] [place] [facility] [address] [id number] [place] [address] Jun, [facility] [place] [facility] [address] [id number] [place] [address] Jun, [facility] [place] [facility] [address] [id number] [place] [address] Jun, [facility] [place] [facility] [address] [id number] [place] [address] Jun, [facility] [place] [facility] [address] [id number] [place] [address] Jun, [facility] [place] [facility] [address] [id number] [place] [address] Jun, [facility] [place] [facility] [address] [id number] [place] [address] May, [facility] [place] [facility] [address] [id number] [place] [address] May, [facility] [place] [facility] [address] [id number] [place] [address] May, [facility] [place] [facility] [address] [id number] [place] [address] May, [facility] [place] [facility] [address] [id number] [place] [address] May, [facility] [place] [facility] [address] [id number] [place] [address] May, [facility] [place] [facility] [address] [id number] [place] [address] May, [facility] [place] [facility] [address] [id number] [place] [address] May, [facility] [place] [facility] [address] [facility] [id number] [place] [address] Apr, 2011 [facility] [place] [facility] [address] [id number] [place] [address] Apr, [facility] [place] [facility] [address] [id number] [place] [address] Apr, 2011 [facility] [place] [facility] [address] [id number] [place] [address] Apr, [facility] [place] [facility] [address] [id number] [place] [address] Apr, [facility] [place] [facility] [address] [id number] [place] [address] Apr, [facility] [place] [facility] [address] [id number] [place] [address] Apr, [facility] [place] [facility] [address] [id number] [place] [address] Apr, [facility] [place] [facility] [address] [id number] [place] [address] 09 Apr, 2012 [facility] [place] [facility] [address] [id number] [place] [address] 08 Apr, 2012 [facility] [place] [facility] [address] [id number] [place] [address] 04 Apr, 2012 [facility] [place] [facility] [address] [id number] [place] [address] 02 Apr, 2012 [facility] [place] [facility] [address] [id number] [place] [address] 19 Mar, 2011 [facility] [place] [facility] [address] [facility] [id number] [place] [address] 18 Sep, 2011 [facility] [place] [facility] [address] [id number] [place] [address] 12 Sep, 2011 [facility] [place] [facility] [address] [id number] [place] [address] 12 Mar, 2011 [facility] [place] [facility] [address] [facility] [id number] [place] [id number] Mar, [facility] [place] [facility] [address] [id number] [place] [id number] Mar, [facility] [place] [facility] [address] [id number] [place] [address] Mar, [facility] [place] [facility] [address] [id number] [place] [address] Jan, [facility] [place] [facility] [address] [id number] [place] [address] Jan, [facility] [place] [facility] [address] [id number] [place] [id number] Jan, [facility] [place] [facility] [address] [id number] [place] [address] , [place] [id number] Jan, [facility] [place] [facility] [address] [id number] [place] [address] Jan, [facility] [place] [facility] [address] [id number] [place] [address] Jan, [facility] [place] [facility] [address] [id number] [place] [address] Jan, [facility] [place] [facility] [address] [id number] [place] [address] Jan, [facility] [address] [id number] [place] [address] Jan, [facility] [address] [id number] [place] [address] Jan, [facility] [address] [id number] [place] [address] Jan, [facility] [address] [id number] [place] [address] Dec, [facility] [address] [id number] [place] [address] Dec, [facility] [address] [id number] [place] [address] Dec, [facility] [address] [id number] [place] [address] 26 Jan, 2012 [facility] [address] [id number] [facility] [place] [address] 20 Jan, 2012 [facility] [address] [id number] [place] [address] 19 Jan, 2012 [facility] [address] [id number] [facility] [place] [address] 18 Jan, 2012 [facility] [address] [id number] [place] [address] 17 Jan, 2012 [facility] [address] [facility] [id number] [facility] [place] [address] 16 Jan, 2012 [facility] [address] [id number] [place] [address] Dec, [facility] [address] [id number] [place] [address] Dec, [facility] [address] [id number] [place] [address] Dec, [facility] [address] [id number] [place] [address] Dec, [facility] [address] [id number] [place] [address] Dec, [facility] [address] [id number] [place] [address] Dec, [facility] [address] [id number] [place] [address] Dec, [facility] [address] [id number] [place] [address] 15 Dec, 2011 [facility] [address] [id number] [place] [address] 06 Dec, 2011 [facility] [address] [id number] [place] [address] 05 Dec, 2011 [facility] [address] [id number] [place] [address] October, [facility] [address] [id number] [place] [address] October, [facility] [address] [id number] [place] [address] October, [facility] [address] [id number] [place] [address] October, [facility] [address] [id number] [place] [address] October, [facility] [address] [id number] [place] [address] October, [facility] [address] [id number] [place] [address] Oct, [facility] [address] [id number] [place] [address] Oct, [facility] [address] [id number] [place] [address] Oct, [facility] [address] [id number] [place] [address] Oct, [facility] [address] [id number] [place] [address] Oct, [facility] [address] [id number] [place] [address] Oct, [facility] [address] [id number] [place] [address] Oct, [facility] [address] [id number] [place] [address] Aug, [facility] [address] [id number] [place] [address] Aug, [facility] [address] [id number] [place] [address] Aug, [facility] [address] [id number] [place] [address] Aug, [facility] [address] [id number] [place] [address] Aug, [facility] [address] [id number] [place] [address] Aug, [facility] [address] [id number] [place] [address] Aug, [facility] [address] [id number] [place] [address] Aug, [facility] [address] [id number] [place] [address] Aug, [facility] [address] [id number] [place] [address] Jul, [facility] [address] [id number] [place] [address] Jul, [facility] [address] [id number] [place] [address] Jul, [facility] [address] [id number] [place] [address] Jul, [facility] [address] [id number] [place] [address] Jun, [facility] [address] [id number] [place] [address] Jun, [facility] [address] [id number] [place] [address] May, [facility] [address] [id number] [place] [address] May, [facility] [address] [id number] [place] [address] May, [facility] [address] [id number] [place] [address] May, [facility] [address] [id number] [place] [address] May, [facility] [address] [id number] [place] [address] Apr, [facility] [address] [id number] [place] [address] Apr, [facility] [address] [id number] [place] [address] Apr, [facility] [address] [id number] [place] [address] Jan, [facility] [address] [id number] [place] [address] Dec, [facility] [id number] [place] [address] October, [facility] [address] [id number] [place] [address] Jun, [facility] [address] [id number] [place] [address] Apr, [facility] [address] [id number] [place] [address] Apr, [facility] [address] [id number] [place] [address] Apr, [facility] [address] [id number] [place] [address] Jun, IMMUNIZATIONS No Known Immunizations SOCIAL HISTORY Never Assessed REASON FOR VISIT PLAN OF CARE VITAL SIGNS Weight 179.25 lbs 2013-10-28 Temperature 99.3 degrees Fahrenheit 2013-10-28 Heart Rate 88 bpm 2013-10-28 Respiratory Rate 2013-10-28 Blood pressure systolic 148 mmHg 2013-10-28 Blood pressure diastolic 78 mmHg 2013-10-28 MEDICATIONS Unknown Medications RESULTS No Results PROCEDURES No Known procedures INSTRUCTIONS MEDICATIONS ADMINISTERED No Known Medications MEDICAL (GENERAL) HISTORY Type Description Date Medical History Psychiatric disorder Medical History Hard of hearing Surgical History Neofibrous tumor Surgical History back injection Surgical History SCS inserted 02/22/16 Hospitalization History Intestinal blockage Hospitalization History past psychiatric hospitalizations x2 Hospitalization History [facility]
--- OUTSIDE RECORDS SUMMARY | 2020-01-25 12:32 | XMS REPORT ---
Author Author Ana Iraheta Organization [facility] Address [address] [place] [address] Care Team Providers Care Emergency Management Coordinator Name Role Phone MELISA Iraheta Unavailable PROBLEMS Type Condition ICD9-CM Code PUV28-TE Code Onset Dates Condition S tatus SNOMED Code Problem Chronic hepatitis C without hepatic coma B18.2 Active [id number] Problem Cannabis abuse F12.10 Active 78210 009 Problem Bipolar 1 disorder F31.9 Active 3 48856097 Problem Attention deficit hyperactivity disorder (ADHD), combi luciano type F90.2 Active 14856471 Problem Attention deficit R41.840 Active 76 934178 Problem Hot flashes due to menopause N95.1 A ctive 609366606 Problem H/O laminectomy Z98.89 Active 1616 36593 Problem Other chronic pain G89.29 Active 8 5407294 Problem Anxiety disorder, unspecified type F41.9 Active 679194545 Problem Bipolar disorder, in partial remission, most rec ent episode hypomanic F31.71 Active 538102243 ALLERGIES No Information ENCOUNTERS Encounter Location Date Diagnosis [facility] [id number] [place] [address] Apr, [facility] [address] [address] Mar, Hot flashes due to menopause N95.1 ; Anx iety disorder, unspecified type F41.9 ; Low back pain M54.5 and Encounter for immunization Z23 [facility] [address] [address] Dec, Other chronic pain G89.29 and Low back p ain M54.5 [facility] [id number] [place] [address] October, [facility] [address] [address] October, [facility] [address] [address] October, [facility] [address] [address] October, Other chronic pain G89.29 and Chronic he patitis C without hepatic coma B18.2 [facility] [address] [address] Aug, Bipolar disorder, in partial remission, most recent episode hypomanic F31.71 ; Attention deficit hyperactivity disorder (ADHD), combined type F90.2 and Anxiety disorder, unspecified type F41.9 [facility] [address] [address] Aug, [facility] [address] [address] Aug, Bipolar disorder, in partial remission, most recent episode hypomanic F31.71 [facility] [address] [address] Aug, [facility] [address] [address] Aug, Bipolar disorder, in partial remission, most recent episode hypomanic F31.71 [facility] [address] [address] Aug, Bipolar disorder, in partial remission, most recent episode hypomanic F31.71 ; Attention deficit hyperactivity disorder (ADHD), combined type F90.2 and Anxiety disorder, unspecified type F41.9 [facility] [address] [address] Aug, Low back pain M54.5 and Pain in left wri st M25.532 [facility] [address] [address] Aug, [facility] [address] [address] Jun, [facility] [id number] [place] [address] Apr, Bipolar disorder, in partial remission, most recent episode hypomanic F31.71 [facility] [id number] [place] [address] Apr, [facility] [address] [address] Apr, Bipolar disorder, in partial remission, most recent episode hypomanic F31.71 ; Attention deficit hyperactivity disorder (ADHD), combined type F90.2 ; Anxiety disorder, unspecified type F41.9 and Other halfway (current) 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 Z79.899 [facility] [address] [address] Apr, Bipolar disorder, in partial remission, most recent episode hypomanic F31.71 [facility] [id number] [place] [address] Apr, Bipolar disorder, in partial remission, most recent episode hypomanic F31.71 [facility] [address] [address] Mar, [facility] [address] [address] Mar, Bipolar disorder, in partial remission, most recent episode hypomanic F31.71 ; Encounter for immunization Z23 and Low back pain M54.5 [facility] [id number] [place] [address] Mar, Bipolar disorder, in partial remission, most recent episode hypomanic F31.71 [facility] [address] [address] Mar, Bipolar disorder, in partial remission, most recent episode hypomanic F31.71 [facility] [id number] [place] [address] Jan, Bipolar disorder, in partial remission, most recent episode hypomanic F31.71 [facility] [id number] [place] [address] Jan, Bipolar disorder, in partial remission, most recent episode hypomanic F31.71 [facility] [address] [id number] [place] [address] Dec, Bipolar disorder, in partial remission, most recent episode hypomanic F31.71 [facility] [id number] [place] [address] Dec, Bipolar disorder, in partial remission, most recent episode hypomanic F31.71 ; Attention deficit hyperactivity disorder (ADHD), combined type F90.2 ; Anxiety disorder, unspecified type F41.9 and Other halfway (current) 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 Z79.899 [facility] [id number] [place] [address] Dec, Bipolar disorder, in partial remission, most recent episode hypomanic F31.71 [facility] [id number] [place] [address] Dec, Bipolar disorder, in partial remission, most recent episode hypomanic F31.71 [facility] [id number] [place] [address] October, Bipolar disorder, in partial remission, most recent episode hypomanic F31.71 [facility] [id number] [place] [address] October, [facility] [id number] [place] [address] October, [facility] [id number] [place] [address] Oct, Bipolar disorder, in partial remission, most recent episode hypomanic F31.71 ; Attention deficit hyperactivity disorder (ADHD), combined type F90.2 ; Anxiety disorder, unspecified type F41.9 and Encounter for drug screening Z02.83 [facility] [id number] [place] [address] Oct, Bipolar disorder, in partial remission, most recent episode hypomanic F31.71 [facility] [id number] [place] [address] Oct, Bipolar disorder, in partial remission, most recent episode hypomanic F31.71 [facility] [id number] [place] [address] Aug, Bipolar disorder, in partial remission, most recent episode hypomanic F31.71 [facility] [address] [address] Aug, Bipolar disorder, in partial remission, most recent episode hypomanic F31.71 [facility] [id number] [place] [address] Aug, Bipolar disorder, in partial remission, most recent episode hypomanic F31.71 [facility] [id number] [place] [address] Jul, Bipolar disorder, in partial remission, most recent episode hypomanic F31.71 ; Attention deficit hyperactivity disorder (ADHD), combined type F90.2 and Anxiety disorder, unspecified type F41.9 [facility] [address] [address] Jul, Bipolar disorder, in partial remission, most recent episode hypomanic F31.71 [facility] [id number] [place] [address] Jun, Bipolar disorder, in partial remission, most recent episode hypomanic F31.71 [facility] [address] [address] May, Bipolar disorder, in partial remission, most recent episode hypomanic F31.71 [facility] [id number] [place] [address] May, Bipolar disorder, in partial remission, most recent episode hypomanic F31.71 [facility] [id number] [place] [address] Apr, [facility] [id number] [place] [address] Apr, Bipolar disorder, in partial remission, most recent episode hypomanic F31.71 ; Attention deficit hyperactivity disorder (ADHD), combined type F90.2 ; Anxiety disorder, unspecified type F41.9 and Cannabis abuse F12.10 [facility] [address] [address] Apr, Attention deficit hyperactivity disorder (ADHD), combined type F90.2 [facility] [address] [address] Mar, Attention deficit hyperactivity disorder (ADHD), combined type F90.2 [facility] [address] [address] Mar, Anxiety disorder, unspecified type F41.9 [facility] [address] [address] Jan, Attention deficit hyperactivity disorder (ADHD), combined type F90.2 [facility] [address] [address] Jan, Anxiety disorder, unspecified type F41.9 [facility] [address] [address] Jan, Other chronic pain G89.29 ; Chronic hepa titis C without hepatic coma B18.2 and Bipolar 1 disorder F31.9 [facility] [address] [address] Dec, Attention deficit hyperactivity disorder (ADHD), combined type F90.2 [facility] [address] [address] Dec, Bipolar disorder, in partial remission, most recent episode hypomanic F31.71 ; Attention deficit hyperactivity disorder (ADHD), combined type F90.2 and Anxiety disorder, unspecified type F41.9 [facility] [address] [address] Dec, Bipolar disorder, in partial remission, most recent episode hypomanic F31.71 ; Attention deficit hyperactivity disorder (ADHD), combined type F90.2 and Anxiety disorder, unspecified type F41.9 [facility] [address] [address] Dec, Bipolar 1 disorder F31.9 and Attention d eficit R41.840 [facility] [address] [address] Oct, Other chronic pain G89.29 ; Alopecia L65 .9 and Screening, lipid Z13.220 [facility] [address] [address] Oct, [facility] [address] [address] Aug, [facility] [address] [address] Aug, Eustachian tube dysfunction, right H69.8 1 ; Vertigo R42 and Other chronic pain G89.29 [facility] [address] [address] Aug, [facility] [address] [address] Jun, [facility] [address] [address] Jun, Low back pain M54.5 and Other chronic pa in G89.29 [facility] [address] [address] Jun, [facility] [address] [address] May, [facility] [address] [address] Jan, [facility] [address] [address] Dec, [facility] [address] [address] Dec, [facility] [address] [address] Jun, [facility] [address] [address] Apr, Eustachian tube dysfunction, unspecified laterality H69.80 ; Hot flashes N95.1 and Encounter for immunization Z23 [facility] [address] [address] Jan, [facility] [address] [address] Jan, [facility] [address] [address] Jan, [facility] [address] [address] Jan, [facility] [address] [address] Jan, Encounter to establish care V65.8 ; Bipo lar 1 disorder 296.7 ; Abdominal pain 789.00 ; Constipation 564.00 ; Hard of hearing 389.9 and Drug abuse 305.90 [facility] [address] [address] Dec, [facility] [address] [address] October, [facility] [address] [address] October, [facility] [address] [address] Oct, [facility] [address] [address] Oct, [facility] [address] [address] Oct, [facility] [address] [address] Aug, [facility] [address] [address] Aug, [facility] [id number] [place] [address] Aug, [facility] [id number] [place] [address] Aug, 2014 [facility] [id number] [place] [address] Aug, 2014 [facility] [id number] [place] [address] Aug, 2014 [facility] [id number] [place] [address] Aug, 2014 [facility] [id number] [place] [address] Aug, 2014 [facility] [id number] [place] [address] Aug, 2014 [facility] [id number] [place] [address] Aug, 2014 [facility] [id number] [place] [address] Aug, 2014 [facility] [id number] [place] [address] Aug, 2014 [facility] [id number] [place] [address] Aug, 2014 [facility] [id number] [place] [address] Aug, 2014 [facility] [id number] [place] [address] Aug, 2014 [facility] [id number] [place] [address] Jul, [facility] [id number] [place] [address] Jul, [facility] [id number] [place] [address] Jul, [facility] [id number] [place] [address] Jul, [facility] [address] [facility] [id number] [place] [address] Jul, [facility] [id number] [place] [address] Jul, [facility] [id number] [place] [address] Jul, [facility] [id number] [place] [address] Jul, [facility] [id number] [place] [address] Jun, [facility] [id number] [place] [address] Jun, [facility] [id number] [place] [address] Jun, [facility] [id number] [place] [address] Jun, [facility] [id number] [place] [address] Jun, [facility] [id number] [place] [address] Jun, [facility] [id number] [place] [address] Jun, [facility] [id number] [place] [address] Jun, [facility] [id number] [place] [address] Jun, [facility] [id number] [place] [address] Jun, [facility] [id number] [place] [address] Jun, [facility] [id number] [place] [address] May, [facility] [id number] [place] [address] May, [facility] [id number] [place] [address] May, [facility] [id number] [place] [address] May, [facility] [id number] [place] [address] May, [facility] [id number] [place] [address] May, [facility] [id number] [place] [address] May, [facility] [id number] [place] [address] Apr, [facility] [id number] [place] [address] Apr, [facility] [id number] [place] [address] Apr, [facility] [id number] [place] [address] Apr, [facility] [id number] [place] [address] Apr, [facility] [id number] [place] [address] Apr, [facility] [id number] [place] [address] 29 Mar, 2014 [facility] [id number] [place] [address] 29 Mar, 2014 [facility] [id number] [place] [address] 10 Mar, 2014 [facility] [address] [id number] [place] [address] 10 Mar, 2014 [facility] [id number] [place] [address] Mar, [facility] [address] [facility] [id number] [place] [address] Mar, [facility] [address] [facility] [id number] [facility] [place] [address] Jan, [facility] [id number] [place] [address] Jan, [facility] [id number] [place] [address] Jan, [facility] [address] [facility] [id number] [place] [address] Jan, [facility] [id number] [place] [address] Dec, [facility] [id number] [place] [address] Dec, [facility] [id number] [place] [address] Dec, [facility] [id number] [place] [address] Dec, [facility] [id number] [place] [address] Dec, [facility] [id number] [place] [address] Dec, [facility] [id number] [place] [address] Dec, [facility] [address] [facility] [id number] [place] [address] Dec, [facility] [address] [id number] [place] [address] Dec, [facility] [address] [id number] [place] [address] Dec, [facility] [id number] [place] [address] Dec, [facility] [id number] [facility] [place] [address] Dec, [facility] [address] [id number] [place] [address] October, [facility] [id number] [place] [address] October, [facility] [id number] [place] [address] October, [facility] [address] [id number] [place] [address] October, [facility] [address] [id number] [place] [address] October, [facility] [address] [id number] [place] [address] October, [facility] [id number] [place] [address] Oct, [facility] [id number] [place] [address] Oct, [facility] [address] [id number] [place] [address] Oct, [facility] [address] [id number] [place] [address] Oct, [facility] [address] [id number] [place] [address] Oct, [facility] [id number] [place] [address] Oct, [facility] [address] [id number] [place] [address] Oct, [facility] [address] [id number] [place] [address] Oct, [facility] [address] [id number] [place] [address] Oct, [facility] [address] [id number] [place] [address] Oct, [facility] [address] [facility] [id number] [place] [address] Oct, [facility] [id number] [place] [address] Oct, [facility] [id number] [place] [address] Aug, [facility] [address] [id number] [place] [address] Aug, [facility] [id number] [place] [address] Aug, [facility] [id number] [place] [address] Aug, [facility] [id number] [place] [address] Aug, [facility] [id number] [place] [address] Aug, [facility] [id number] [place] [address] Aug, [facility] [id number] [place] [address] Aug, [facility] [id number] [place] [address] Aug, [facility] [id number] [place] [address] Aug, [facility] [id number] [place] [address] Aug, [facility] [id number] [place] [address] Aug, [facility] [id number] [place] [address] Aug, [facility] [id number] [place] [address] Aug, [facility] [id number] [place] [address] Aug, [facility] [id number] [place] [address] Aug, [facility] [id number] [place] [address] Aug, [facility] [id number] [place] [address] Aug, [facility] [id number] [place] [address] Aug, [facility] [id number] [place] [address] Aug, [facility] [id number] [place] [address] Aug, [facility] [id number] [place] [address] Aug, [facility] [id number] [place] [address] Aug, [facility] [id number] [place] [address] Aug, [facility] [id number] [place] [address] Aug, [facility] [id number] [place] [address] Jul, [facility] [id number] [place] [address] Jul, [facility] [id number] [place] [address] Jul, [facility] [id number] [place] [address] Jul, [facility] [id number] [place] [address] Jul, [facility] [id number] [place] [address] Jul, [facility] [id number] [place] [address] Jul, [facility] [id number] [place] [address] Jul, [facility] [id number] [place] [address] Jul, [facility] [id number] [place] [address] Jul, [facility] [id number] [place] [address] Jul, [facility] [id number] [place] [address] Jul, [facility] [id number] [place] [address] Jul, [facility] [id number] [place] [address] Jul, [facility] [id number] [place] [address] Jul, [facility] [id number] [place] [address] Jul, [facility] [id number] [place] [address] Jul, [facility] [id number] [place] [address] Jul, [facility] [id number] [place] [address] Jul, [facility] [id number] [place] [address] Jul, [facility] [id number] [place] [address] Jun, [facility] [id number] [place] [address] Jun, [facility] [id number] [place] [address] Jun, [facility] [address] [facility] [id number] [place] [address] Jun, [facility] [address] [facility] [id number] [place], [place] [address] Jun, [facility] [place] [facility] [id number] [place] [address] Jun, [facility] [place] [facility] [id number] [place] [address] Jun, [facility] [place] [facility] [address] [facility] [id number] [place] [address] Jun, [facility] [place] [facility] [id number] [place] [address] Jun, [facility] [place] [facility] [id number] [place] [address] Jun, [facility] [place] [facility] [id number] [place] [address] Jun, [facility] [place] [facility] [id number] [place] [address] Jun, [facility] [place] [facility] [id number] [place] [address] Jun, [facility] [place] [facility] [id number] [place] [address] Jun, [facility] [place] [facility] [id number] [place] [address] Jun, [facility] [place] [facility] [id number] [place] [address] Jun, [facility] [place] [facility] [id number] [place] [address] 18 Jun, 2013 [facility] [place] [facility] [id number] [place] [address] 17 Jun, 2013 [facility] [place] [facility] [id number] [place] [address] Jun, [facility] [place] [facility] [id number] [place] [address] 13 Jun, 2012 [facility] [place] [facility] [id number] [place] [address] Jun, [facility] [place] [facility] [id number] [place] [address] Jun, [facility] [place] [facility] [id number] [place] [address] Jun, [facility] [place] [facility] [id number] [place] [address] Jun, [facility] [place] [facility] [id number] [place] [address] Jun, [facility] [place] [facility] [id number] [place] [address] Jun, [facility] [place] [facility] [id number] [place] [address] Jun, [facility] [place] [facility] [id number] [place] [address] May, [facility] [place] [facility] [id number] [place] [address] May, [facility] [place] [facility] [id number] [place] [address] May, [facility] [place] [facility] [id number] [place] [address] May, [facility] [place] [facility] [id number] [place] [address] May, [facility] [place] [facility] [id number] [place] [address] May, [facility] [place] [facility] [id number] [place] [address] Apr, [facility] [place] [facility] [id number] [place] [address] Apr, [facility] [place] [facility] [id number] [place] [address] Apr, [facility] [place] [facility] [id number] [place] [address] 30 Apr, 2012 [facility] [place] [facility] [id number] [place] [address] Apr, [facility] [place] [facility] [id number] [place] [address] 15 Apr, 2012 [facility] [place] [facility] [id number] [place] [address] 15 Apr, 2013 [facility] [place] [facility] [id number] [place] [address] Apr, [facility] [place] [facility] [id number] [place] [address] 26 Mar, 2012 [facility] [place] [facility] [id number] [place] [address] 24 Mar, 2012 [facility] [place] [facility] [id number] [place] [address] 17 Mar, 2012 [facility] [place] [facility] [id number] [place] [address] 17 Mar, 2012 [facility] [place] [facility] [id number] [place] [address] 11 Mar, 2012 [facility] [place] [facility] [id number] [place] [address] 10 Mar, 2012 [facility] [place] [facility] [id number] [place] [address] 05 Sep, 2012 [facility] [place] [facility] [id number] [place] [address] 04 Mar, 2012 [facility] [place] [facility] [id number] [place] [address] 20 Jan, 2013 [facility] [place] [facility] [id number] [place] [address] 19 Jan, 2012 [facility] [place] [facility] [id number] [place] [address] 14 Jan, 2012 [facility] [place] [facility] [id number] [place] [address] Jan, [facility] [place] [facility] [address] [facility] [id number] [facility] [place] [address] Jan, [facility] [place] [facility] [address] [facility] [id number] [place] [address] Jan, [facility] [place] [facility] [address] [facility] [id number] [facility] [place] [address] Dec, [facility] [place] [facility] [address] [facility] [id number] [place] [address] Dec, [facility] [place] [facility] [address] [facility] [id number] [place] [address] Dec, [facility] [place] [facility] [address] [facility] [id number] [place] [address] Dec, [facility] [place] [facility] [id number] [facility] [place] [address] Dec, [facility] [place] [facility] [id number] [facility] [place] [address] Dec, [facility] [place] [facility] [address] [facility] [id number] [facility] [place] [address] Dec, [facility] [place] [facility] [id number] [facility] [place] [address] Dec, [facility] [place] [facility] [id number] [facility] [place] [address] 15 Dec, 2012 [facility] [place] [facility] [id number] [facility] [place] [address] Dec, [facility] [place] [facility] [address] [facility] [id number] [place] [address] Dec, [facility] [place] [facility] [address] [facility] [id number] [facility] [place] [address] Dec, [facility] [place] [facility] [address] [facility] [id number] [facility] [place] [address] Dec, [facility] [place] [facility] [id number] [facility] [place] [address] Dec, [facility] [place] [facility] [address] [id number] [facility] [place] [address] 13 Dec, 2012 [facility] [place] [facility] [address] [id number] [place] [address] Dec, [facility] [place] [facility] [id number] [facility] [place] [address] October, [facility] [place] [facility] [id number] [place] [address] October, [facility] [place] [facility] [id number] [facility] [place] [address] October, [facility] [place] [facility] [address] [id number] [facility] [place] [address] October, [facility] [place] [facility] [id number] [place] [address] October, [facility] [place] [facility] [id number] [place] [address] October, [facility] [place] [facility] [id number] [place] [address] October, [facility] [place] [facility] [id number] [place] [address] 29 Oct, 2012 [facility] [place] [facility] [id number] [place] [address] Oct, [facility] [place] [facility] [id number] [place] [address] 24 Oct, 2012 [facility] [place] [facility] [id number] [place] [address] 23 Oct, 2012 [facility] [place] [facility] [address] [id number] [place] [address] 19 Oct, 2012 [facility] [place] [facility] [address] [id number] [place] [address] 18 Oct, 2012 [facility] [place] [facility] [id number] [place] [address] 17 Oct, 2012 [facility] [place] [facility] [id number] [place] [address] 15 Oct, 2012 [facility] [id number] [place] [address] Oct, [facility] [id number] [place] [address] Oct, [facility] [place] [facility] [id number] [place] [address] Oct, [facility] [place] [facility] [id number] [place] [address] Oct, [facility] [place] [facility] [id number] [place] [address] Aug, [facility] [id number] [place] [address] Aug, [facility] [place] [facility] [id number] [place] [address] Aug, [facility] [place] [facility] [id number] [place] [address] Aug, [facility] [place] [facility] [id number] [place] [address] Aug, [facility] [place] [facility] [id number] [place] [address] Aug, [facility] [place] [facility] [id number] [place] [address] 20 Aug, 2012 [facility] [place] [facility] [id number] [place] [address] 14 Aug, 2012 [facility] [place] [facility] [id number] [place] [address] Aug, [facility] [place] [facility] [id number] [place] [address] Aug, [facility] [place] [facility] [id number] [place] [address] Jul, [facility] [place] [facility] [id number] [place] [address] Jul, [facility] [place] [facility] [id number] [place] [address] 08 Jul, 2012 [facility] [place] [facility] [address] [id number] [place] [address] 20 Jun, 2012 [facility] [place] [facility] [id number] [place] [address] 18 Jun, 2012 [facility] [place] [facility] [id number] [place] [address] 18 Jun, 2012 [facility] [place] [facility] [id number] [place] [address] 18 Jun, 2012 [facility] [place] [facility] [id number] [place] [address] 18 Jun, 2012 [facility] [place] [facility] [id number] [place] [address] 14 Jun, 2012 [facility] [place] [facility] [id number] [place] [address] 14 Jun, 2012 [facility] [place] [facility] [id number] [place] [address] 13 Jun, 2012 [facility] [place] [facility] [id number] [place] [address] 13 Jun, 2012 [facility] [place] [facility] [id number] [place] [address] 11 Jun, 2012 [facility] [place] [facility] [id number] [place] [address] 11 Jun, 2012 [facility] [place] [facility] [id number] [place] [address] 11 Jun, 2012 [facility] [place] [facility] [id number] [place] [address] 11 Jun, 2012 [facility] [place] [facility] [id number] [place] [address] 07 Jun, 2012 [facility] [place] [facility] [id number] [place] [address] 07 Jun, 2012 [facility] [place] [facility] [id number] [place] [address] 06 Jun, 2012 [facility] [place] [facility] [id number] [place] [address] Jun, [facility] [place] [facility] [id number] [place] [address] Jun, [facility] [place] [facility] [id number] [place] [address] Jun, [facility] [place] [facility] [id number] [place] [address] Jun, [facility] [place] [facility] [id number] [place] [address] Jun, [facility] [place] [facility] [id number] [place] [address] Jun, [facility] [place] [facility] [id number] [place] [address] Jun, [facility] [place] [facility] [id number] [place] [address] May, [facility] [place] [facility] [id number] [place] [address] May, [facility] [place] [facility] [id number] [place] [address] May, [facility] [place] [facility] [id number] [place] [address] May, [facility] [place] [facility] [id number] [place] [address] May, [facility] [place] [facility] [id number] [place] [address] May, [facility] [place] [facility] [id number] [place] [address] May, [facility] [place] [facility] [id number] [place] [address] May, [facility] [place] [facility] [id number] [place] [address] Apr, [facility] [place] [facility] [id number] [place] [address] 30 Apr, 2012 [facility] [place] [facility] [id number] [place] [address] Apr, [facility] [place] [facility] [id number] [place] [address] Apr, [facility] [place] [facility] [id number] [place] [address] Apr, [facility] [place] [facility] [id number] [place] [address] Apr, [facility] [place] [facility] [id number] [place] [address] Apr, [facility] [place] [facility] [id number] [place] [address] Apr, [facility] [place] [facility] [id number] [place] [address] 09 Apr, 2012 [facility] [place] [facility] [id number] [place] [address] 08 Apr, 2012 [facility] [place] [facility] [id number] [place] [address] 04 Apr, 2012 [facility] [place] [facility] [id number] [place] [address] 02 Apr, 2012 [facility] [place] [facility] [id number] [place] [address] 19 Mar, 2011 [facility] [place] [facility] [id number] [place] [address] 18 Sep, 2011 [facility] [place] [facility] [id number] [place] [address] 12 Sep, 2011 [facility] [place] [facility] [id number] [place] [address] 12 Sep, 2011 [facility] [place] [facility] [address] [facility] [id number] [place] [id number] 12 Mar, 2011 [facility] [place] [facility] [address] [facility] [id number] [place] [id number] Mar, 2011 [facility] [place] [facility] [id number] [place] [address] Mar, [facility] [place] [facility] [address] [id number] [place] [address] Jan, [facility] [place] [facility] [address] [facility] [id number] [place] [address] Jan, [facility] [place] [facility] [address] [id number] [facility] [place] [id number] Jan, [facility] [place] [facility] [address] [id number] [place] [id number] Jan, [facility] [place] [facility] [address] [id number] [place] [address] Jan, [facility] [place] [facility] [id number] [place] [address] Jan, [facility] [place] [facility] [id number] [place] [address] Jan, [facility] [place] [facility] [id number] [place] [address] Jan, [facility] [place] [facility] [id number] [place] [address] Jan, [facility] [place] [facility] [id number] [place] [address] Jan, [facility] [place] [facility] [id number] [place] [address] Jan, [facility] [place] [facility] [id number] [place] [address] Dec, [facility] [place] [facility] [id number] [place] [address] Dec, [facility] [place] [facility] [id number] [place] [address] Dec, [facility] [place] [facility] [id number] [place] [address] Dec, [facility] [place] [facility] [id number] [place] [address] Dec, [facility] [place] [facility] [id number] [place] [address] 19 Jan, 2012 [facility] [place] [facility] [address] [id number] [place] [address] 18 Jan, 2012 [facility] [place] [facility] [id number] [place] [address] 17 Jan, 2012 [facility] [place] [facility] [id number] [place] [address] 16 Jan, 2012 [facility] [place] [facility] [id number] [place] [address] Dec, [facility] [place] [facility] [id number] [place] [address] Dec, [facility] [place] [facility] [id number] [place] [address] Dec, [facility] [place] [facility] [id number] [place] [address] Dec, [facility] [place] [facility] [id number] [place] [address] Dec, [facility] [place] [facility] [id number] [place] [address] Dec, [facility] [place] [facility] [id number] [place] [address] Dec, [facility] [place] [facility] [id number] [place] [address] Dec, [facility] [place] [facility] [id number] [place] [address] Dec, [facility] [place] [facility] [id number] [place] [address] Dec, [facility] [place] [facility] [id number] [place] [address] October, [facility] [place] [facility] [id number] [place] [address] October, [facility] [place] [facility] [id number] [place] [address] October, [facility] [place] [facility] [id number] [place] [address] October, [facility] [place] [facility] [id number] [place] [address] October, [facility] [place] [facility] [id number] [place] [address] October, [facility] [place] [facility] [id number] [place] [address] Oct, [facility] [place] [facility] [id number] [place] [address] Oct, [facility] [place] [facility] [id number] [place] [address] Oct, [facility] [place] [facility] [id number] [place] [address] Oct, [facility] [place] [facility] [id number] [place] [address] Oct, [facility] [place] [facility] [id number] [place] [address] Oct, [facility] [place] [facility] [id number] [place] [address] Oct, [facility] [place] [facility] [id number] [place] [address] Aug, [facility] [place] [facility] [id number] [place] [address] Aug, [facility] [place] [facility] [id number] [place] [address] Aug, [facility] [place] [facility] [id number] [place] [address] Aug, [facility] [place] [facility] [id number] [place] [address] Aug, [facility] [place] [facility] [id number] [place] [address] Aug, [facility] [place] [facility] [id number] [place] [address] Aug, [facility] [id number] [place] [address] Aug, [facility] [id number] [place] [address] Aug, [facility] [id number] [place] [address] Jul, [facility] [id number] [place] [address] Jul, [facility] [id number] [place] [address] Jul, [facility] [id number] [place] [address] Jul, [facility] [id number] [place] [address] Jun, [facility] [id number] [place] [address] Jun, [facility] [id number] [place] [address] May, [facility] [id number] [place] [address] May, [facility] [id number] [place] [address] May, [facility] [id number] [place] [address] May, [facility] [id number] [place] [address] May, [facility] [id number] [place] [address] Apr, [facility] [id number] [place] [address] Apr, [facility] [id number] [place] [address] 10 Apr, 2011 [facility] [id number] [place] [address] Jan, [facility] [id number] [place] [address] Dec, [facility] [id number] [place] [address] October, [facility] [id number] [place] [address] Jun, [facility] [id number] [place] [address] Apr, [facility] [id number] [place] [address] Apr, [facility] [id number] [place] [address] Apr, [facility] [id number] [place] [address] Jun, IMMUNIZATIONS No Known Immunizations SOCIAL HISTORY [...]
--- OUTSIDE RECORDS SUMMARY | 2020-01-25 12:32 | XMS REPORT ---
Author Author Ana Iraheta Organization [facility] [place] Address [address] [place] [address] Care Team Providers Care Medical Attendant Name Role Phone MELISA Iraheta Unavailable PROBLEMS Type Condition ICD9-CM Code TSH98-FE Code Onset Dates Condition S tatus SNOMED Code Problem Chronic hepatitis C without hepatic coma B18.2 Active 176424933 Problem Cannabis abuse F12.10 Active 96284 009 Problem Bipolar 1 disorder F31.9 Active 3 06542503 Problem Attention deficit hyperactivity disorder (ADHD), combi luciano type F90.2 Active 08125289 Problem Attention deficit R41.840 Active 76 298617 Problem Hot flashes due to menopause N95.1 A ctive 075002776 Problem H/O laminectomy Z98.89 Active 1616 60652 Problem Other chronic pain G89.29 Active 8 1411616 Problem Anxiety disorder, unspecified type F41.9 Active 246651037 Problem Bipolar disorder, in partial remission, most rec ent episode hypomanic F31.71 Active [id number] ALLERGIES No Information ENCOUNTERS Encounter Location Date Diagnosis [place] [address] [address] Jul, [facility] [place] [address] [address] Jul, [facility] [place] [address] [address] Apr, [facility] [place] [address] [address] Mar, Hot flashes due to menopause N95.1 ; Anx iety disorder, unspecified type F41.9 ; Low back pain M54.5 and Encounter for immunization Z23 [facility] [place] [address] [address] Dec, Other chronic pain G89.29 and Low back p ain M54.5 [facility] [place] [address] [address] October, [facility] [place] [address] [address] October, [facility] [place] [address] [address] October, [facility] [place] [address] [address] October, Other chronic pain G89.29 and Chronic he patitis C without hepatic coma B18.2 [facility] [place] [address] [address] Aug, Bipolar disorder, in partial remission, most recent episode hypomanic F31.71 ; Attention deficit hyperactivity disorder (ADHD), combined type F90.2 and Anxiety disorder, unspecified type F41.9 [facility] [place] [address] [address] Aug, [facility] [place] [address] [address] Aug, Bipolar disorder, in partial remission, most recent episode hypomanic F31.71 [facility] [place] [address] [address] 14 Aug, 2018 [facility] [place] [address] [address] Aug, Bipolar disorder, in partial remission, most recent episode hypomanic F31.71 [facility] [place] [address] [address] Aug, Bipolar disorder, in partial remission, most recent episode hypomanic F31.71 ; Attention deficit hyperactivity disorder (ADHD), combined type F90.2 and Anxiety disorder, unspecified type F41.9 [facility] [place] [address] [address] Aug, Low back pain M54.5 and Pain in left wri st M25.532 [facility] [place] [address] [address] Aug, [facility] [place] [address] [address] Jun, [facility] [place] [address] [address] Apr, Bipolar disorder, in partial remission, most recent episode hypomanic F31.71 [place] [address] [address] Apr, [place] [address] [address] Apr, Bipolar disorder, in partial remission, most recent episode hypomanic F31.71 ; Attention deficit hyperactivity disorder (ADHD), combined type F90.2 ; Anxiety disorder, unspecified type F41.9 and Other care home (current) 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 Z79.899 [place] [address] [address] Apr, Bipolar disorder, in partial remission, most recent episode hypomanic F31.71 [place] [address] [address] Apr, Bipolar disorder, in partial remission, most recent episode hypomanic F31.71 [place] [address] [address] Mar, [place] [address] [address] Mar, Bipolar disorder, in partial remission, most recent episode hypomanic F31.71 ; Encounter for immunization Z23 and Low back pain M54.5 [place] [address] [address] Mar, Bipolar disorder, in partial remission, most recent episode hypomanic F31.71 [place] [address] [address] Mar, Bipolar disorder, in partial remission, most recent episode hypomanic F31.71 [facility] [place] [address] [id number] [place] [address] Jan, Bipolar disorder, in partial remission, most recent episode hypomanic F31.71 [facility] [place] [address] [id number] [place] [address] Jan, Bipolar disorder, in partial remission, most recent episode hypomanic F31.71 [facility] [place] [address] [id number] [place] [address] Dec, Bipolar disorder, in partial remission, most recent episode hypomanic F31.71 [facility] [place] [address] [id number] [place] [address] Dec, Bipolar disorder, in partial remission, most recent episode hypomanic F31.71 ; Attention deficit hyperactivity disorder (ADHD), combined type F90.2 ; Anxiety disorder, unspecified type F41.9 and 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 [facility] [place] [address] [place] [id number] [place] [address] Dec, Bipolar disorder, in partial remission, most recent episode hypomanic F31.71 [facility] [place] [address] [id number] [place] [address] Dec, Bipolar disorder, in partial remission, most recent episode hypomanic F31.71 [facility] [place] [address] [id number] [place] [address] October, Bipolar disorder, in partial remission, most recent episode hypomanic F31.71 [facility] [place] [address] [id number] [place] [address] October, [facility] [place] [address] [id number] [place] [address] October, [facility] [place] [address] [id number] [place] [address] Oct, Bipolar disorder, in partial remission, most recent episode hypomanic F31.71 ; Attention deficit hyperactivity disorder (ADHD), combined type F90.2 ; Anxiety disorder, unspecified type F41.9 and Encounter for drug screening Z02.83 [facility] [place] [address] [place] [id number] [place] [address] Oct, Bipolar disorder, in partial remission, most recent episode hypomanic F31.71 [facility] [place] [address] [place] [id number] [place] [address] Oct, Bipolar disorder, in partial remission, most recent episode hypomanic F31.71 [facility] [place] [address] [address] Aug, Bipolar disorder, in partial remission, most recent episode hypomanic F31.71 [facility] [place] [address] [address] Aug, Bipolar disorder, in partial remission, most recent episode hypomanic F31.71 [place] [address] [place] [id number] [place] [address] Aug, Bipolar disorder, in partial remission, most recent episode hypomanic F31.71 [facility] [place] [address] [place] [id number] [place] [address] Jul, Bipolar disorder, in partial remission, most recent episode hypomanic F31.71 ; Attention deficit hyperactivity disorder (ADHD), combined type F90.2 and Anxiety disorder, unspecified type F41.9 [facility] [place] [address] [place] [id number] [place] [address] Jul, Bipolar disorder, in partial remission, most recent episode hypomanic F31.71 [facility] [place] [address] [place] [id number] [place] [address] Jun, Bipolar disorder, in partial remission, most recent episode hypomanic F31.71 [place] [address] [place] [id number] [place] [address] May, Bipolar disorder, in partial remission, most recent episode hypomanic F31.71 [facility] [place] [address] [place] [id number] [place] [address] May, Bipolar disorder, in partial remission, most recent episode hypomanic F31.71 [place] [address] [address] Apr, [place] [address] [address] Apr, Bipolar disorder, in partial remission, most recent episode hypomanic F31.71 ; Attention deficit hyperactivity disorder (ADHD), combined type F90.2 ; Anxiety disorder, unspecified type F41.9 and Cannabis abuse F12.10 [place] [address] [address] Apr, Attention deficit hyperactivity disorder (ADHD), combined type F90.2 [place] [address] [address] Mar, Attention deficit hyperactivity disorder (ADHD), combined type F90.2 [place] [address] [address] 14 Mar, 2017 Anxiety disorder, unspecified type F41.9 [place] [address] [address] Jan, Attention deficit hyperactivity disorder (ADHD), combined type F90.2 [place] [address] [address] Jan, Anxiety disorder, unspecified type F41.9 [place] [address] [address] Jan, Other chronic pain G89.29 ; Chronic hepa titis C without hepatic coma B18.2 and Bipolar 1 disorder F31.9 [place] [address] [address] Dec, Attention deficit hyperactivity disorder (ADHD), combined type F90.2 [place] [address] [address] Dec, Bipolar disorder, in partial remission, most recent episode hypomanic F31.71 ; Attention deficit hyperactivity disorder (ADHD), combined type F90.2 and Anxiety disorder, unspecified type F41.9 [place] [address] [address] Dec, Bipolar disorder, in partial remission, most recent episode hypomanic F31.71 ; Attention deficit hyperactivity disorder (ADHD), combined type F90.2 and Anxiety disorder, unspecified type F41.9 [facility] [place] [address] [address] Dec, Bipolar 1 disorder F31.9 and Attention d eficit R41.840 [place] [address] [address] Oct, Other chronic pain G89.29 ; Alopecia L65 .9 and Screening, lipid Z13.220 [place] [address] [address] Oct, [place] [address] [address] Aug, [address] [address] Aug, Eustachian tube dysfunction, right H69.8 1 ; Vertigo R42 and Other chronic pain G89.29 [place] [address] [address] Aug, [place] [address] [address] Jun, [place] [address] [address] Jun, Low back pain M54.5 and Other chronic pa in G89.29 [place] [address] [address] Jun, [place] [address] [address] May, [facility] [place] [address] [address] Jan, [place] [address] [address] Dec, [facility] [place] [address] [address] Dec, [facility] [place] [address] [address] Jun, [facility] [place] [address] [address] Apr, Eustachian tube dysfunction, unspecified laterality H69.80 ; Hot flashes N95.1 and Encounter for immunization Z23 [facility] [place] [address] [address] Jan, [facility] [place] [address] [address] Jan, [facility] [place] [address] [address] Jan, [facility] [place] [address] [address] Jan, [facility] [place] [address] [address] Jan, Encounter to establish care V65.8 ; Bipo lar 1 disorder 296.7 ; Abdominal pain 789.00 ; Constipation 564.00 ; Hard of hearing 389.9 and Drug abuse 305.90 [facility] [place] [address] [address] Dec, [facility] [place] [address] [address] October, [facility] [place] [address] [address] October, [facility] [place] [address] [address] Oct, [facility] [place] [address] [address] Oct, [facility] [place] [address] [address] Oct, [facility] [address] [id number] [place] [address] Aug, [facility] [address] [id number] [place] [address] Aug, [facility] [address] [id number] [place] [address] Aug, [facility] [address] [id number] [place] [address] Aug, 2014 [facility] [address] [id number] [place] [address] Aug, 2014 [facility] [address] [id number] [place] [address] Aug, 2014 [facility] [address] [id number] [place] [address] Aug, 2014 [facility] [address] [id number] [place] [address] Aug, 2014 [facility] [address] [id number] [place] [address] Aug, 2014 [facility] [address] [id number] [place] [address] Aug, 2014 [facility] [address] [id number] [place] [address] Aug, 2014 [facility] [address] [id number] [place] [address] Aug, 2014 [facility] [address] [id number] [place] [address] Aug, 2014 [facility] [address] [id number] [place] [address] Aug, 2014 [facility] [address] [id number] [place] [address] Aug, 2014 [facility] [address] [id number] [place] [address] Jul, [facility] [address] [id number] [place] [address] Jul, [facility] [address] [facility] [id number] [place] [address] Jul, [facility] [address] [id number] [place] [address] Jul, [facility] [address] [id number] [place] [address] Jul, [facility] [address] [id number] [place] [address] Jul, [facility] [address] [id number] [place] [address] Jul, [facility] [address] [id number] [place] [address] Jul, [facility] [address] [id number] [place] [address] Jun, [facility] [address] [id number] [place] [address] Jun, [facility] [address] [id number] [place] [address] Jun, [facility] [address] [id number] [place] [address] Jun, [facility] [address] [id number] [place] [address] Jun, [facility] [address] [id number] [place] [address] 15 Jun, 2014 [facility] [address] [id number] [place] [address] Jun, [facility] [address] [id number] [place] [address] Jun, [facility] [address] [id number] [place] [address] Jun, [facility] [address] [id number] [place] [address] Jun, [facility] [address] [id number] [place] [address] Jun, [facility] [address] [id number] [place] [address] May, [facility] [address] [id number] [place] [address] May, [facility] [address] [id number] [place] [address] May, [facility] [address] [id number] [place] [address] May, [facility] [address] [id number] [place] [address] May, [facility] [address] [id number] [place] [address] May, [facility] [address] [place] [id number] [place] [address] May, [facility] [address] [id number] [place] [address] Apr, [facility] [address] [id number] [place] [address] Apr, [facility] [address] [id number] [place] [address] Apr, [facility] [address] [id number] [place] [address] Apr, [facility] [address] [id number] [place] [address] Apr, [facility] [address] [id number] [place] [address] Apr, [facility] [address] [place] [id number] [place] [address] 29 Mar, 2014 [facility] [address] [id number] [place] [address] 29 Mar, 2014 [facility] [address] [id number] [place] [address] Mar, [facility] [address] [facility] [id number] [place] [address] Mar, [facility] [address] [facility] [id number] [place] [address] Mar, [facility] [address] [id number] [place] [address] Mar, [facility] [address] [facility] [id number] [place] [address] Jan, [facility] [address] [facility] [id number] [place] [address] Jan, [facility] [address] [id number] [place] [address] Jan, [facility] [address] [id number] [place] [address] Jan, [facility] [address] [id number] [place] [address] Dec, [facility] [address] [facility] [id number] [place] [address] Dec, [facility] [address] [id number] [place] [address] Dec, [facility] [address] [id number] [place] [address] Dec, [facility] [address] [id number] [place] [address] Dec, [facility] [address] [facility] [id number] [place] [address] Dec, [facility] [address] [id number] [place] [address] Dec, [facility] [address] [facility] [id number] [place] [address] Dec, [facility] [address] [id number] [place] [address] Dec, [facility] [address] [id number] [facility] [place] [address] Dec, [facility] [address] [id number] [place] [address] Dec, [facility] [address] [id number] [place] [address] Dec, [facility] [address] [id number] [place] [address] October, [facility] [address] [id number] [place] [address] October, [facility] [address] [id number] [place] [address] October, [facility] [address] [id number] [place] [address] October, [facility] [address] [id number] [place] [address] October, [facility] [address] [id number] [place] [address] October, [facility] [address] [id number] [place] [address] Oct, [facility] [address] [id number] [place] [address] Oct, [facility] [address] [id number] [place] [address] Oct, [facility] [address] [facility] [id number] [place] [address] Oct, [facility] [address] [id number] [place] [address] Oct, [facility] [address] [id number] [place] [address] Oct, [facility] [address] [facility] [id number] [place] [address] Oct, [facility] [address] [id number] [place] [address] Oct, [facility] [address] [facility] [id number] [place] [address] Oct, [facility] [address] [facility] [id number] [place] [address] Oct, [facility] [address] [facility] [id number] [place] [address] Oct, [facility] [address] [facility] [id number] [place] [address] Oct, [facility] [address] [facility] [id number] [place] [address] Aug, [facility] [address] [facility] [id number] [place] [address] Aug, [facility] [address] [facility] [id number] [place] [address] Aug, [facility] [address] [facility] [id number] [place] [address] Aug, [facility] [address] [facility] [id number] [place] [address] Aug, [facility] [address] [facility] [id number] [place] [address] Aug, [facility] [address] [facility] [id number] [place] [address] Aug, [facility] [address] [facility] [id number] [place] [address] Aug, [facility] [address] [facility] [id number] [place] [address] Aug, [facility] [address] [facility] [id number] [place] [address] Aug, [facility] [address] [id number] [place] [address] Aug, [facility] [address] [facility] [id number] [place] [address] Aug, [facility] [address] [facility] [id number] [place] [address] Aug, [facility] [address] [id number] [place] [address] Aug, [facility] [place] [facility] [address] [id number] [place] [address] Aug, [facility] [place] [facility] [address] [id number] [place] [address] Aug, [facility] [place] [facility] [address] [id number] [place] [address] Aug, [facility] [place] [facility] [address] [id number] [place] [address] Aug, [facility] [place] [facility] [address] [id number] [place] [address] 07 Aug, 2013 [facility] [place] [facility] [address] [id number] [place] [address] Aug, [facility] [place] [facility] [address] [id number] [place] [address] Aug, [facility] [place] [facility] [address] [id number] [place] [address] Aug, [facility] [place] [facility] [address] [id number] [place] [address] Aug, [facility] [place] [facility] [address] [id number] [place] [address] Aug, [facility] [place] [facility] [address] [id number] [place] [address] Aug, [facility] [place] [facility] [address] [id number] [place] [address] Jul, [facility] [place] [facility] [address] [id number] [place] [address] Jul, [facility] [place] [facility] [address] [id number] [place] [address] Jul, [facility] [place] [facility] [id number] [place] [address] Jul, [facility] [place] [facility] [address] [id number] [place] [address] Jul, [facility] [place] [facility] [address] [id number] [place] [address] Jul, [facility] [place] [facility] [address] [id number] [place] [address] Jul, [facility] [place] [facility] [address] [id number] [place] [address] Jul, [facility] [place] [facility] [address] [facility] [id number] [place] [address] Jul, [facility] [place] [facility] [address] [id number] [place] [address] Jul, [facility] [place] [facility] [address] [id number] [place] [address] Jul, [facility] [place] [facility] [address] [id number] [place] [address] Jul, [facility] [place] [facility] [address] [id number] [place] [address] Jul, [facility] [place] [facility] [address] [id number] [place] [address] Jul, [facility] [place] [facility] [address] [id number] [place] [address] Jul, [facility] [place] [facility] [address] [id number] [place] [address] Jul, [facility] [place] [facility] [address] [id number] [place] [address] Jul, [facility] [place] [facility] [address] [id number] [place] [address] Jul, [facility] [place] [facility] [address] [id number] [place] [address] Jul, [facility] [place] [facility] [address] [id number] [place] [address] Jul, [facility] [place] [facility] [address] [id number] [place] [address] Jun, [facility] [place] [facility] [address] [facility] [id number] [place] [address] Jun, [facility] [place] [facility] [address] [facility] [id number] [place] [address] Jun, [facility] [place] [facility] [address] [id number] [place] [address] Jun, [facility] [place] [facility] [address] [id number] [place] [address] Jun, [facility] [place] [facility] [address] [facility] [id number] [place] [address] Jun, [facility] [place] [facility] [address] [id number] [place] [address] Jun, [facility] [place] [facility] [address] [id number] [place] [address] Jun, [facility] [place] [facility] [address] [id number] [place] [address] Jun, [facility] [place] [facility] [address] [id number] [place] [address] Jun, [facility] [place] [facility] [address] [id number] [place] [address] Jun, [facility] [place] [facility] [address] [id number] [place] [address] Jun, [facility] [place] [facility] [address] [id number] [place] [address] Jun, [facility] [place] [facility] [address] [id number] [place] [address] Jun, [facility] [place] [facility] [address] [id number] [place] [address] Jun, [facility] [place] [facility] [address] [id number] [place] [address] Jun, [facility] [place] [facility] [address] [id number] [place] [address] Jun, [facility] [place] [facility] [address] [id number] [place] [address] 17 Jun, 2013 [facility] [place] [facility] [address] [id number] [place] [address] 17 Jun, 2013 [facility] [place] [facility] [address] [id number] [place] [address] Jun, [facility] [place] [facility] [address] [id number] [place] [address] Jun, [facility] [place] [facility] [address] [id number] [place] [address] Jun, [facility] [place] [facility] [address] [id number] [place] [address] Jun, [facility] [place] [facility] [address] [id number] [place] [address] Jun, [facility] [place] [facility] [address] [id number] [place] [address] Jun, [facility] [place] [facility] [address] [id number] [place] [address] Jun, [facility] [place] [facility] [address] [id number] [place] [address] Jun, [facility] [place] [facility] [address] [id number] [place] [address] May, [facility] [place] [facility] [address] [id number] [place] [address] May, [facility] [place] [facility] [address] [id number] [place] [address] May, [facility] [place] [facility] [address] [id number] [place] [address] May, [facility] [place] [facility] [id number] [place] [address] May, [facility] [place] [facility] [address] [id number] [place] [address] May, [facility] [place] [facility] [address] [id number] [place] [address] Apr, [facility] [place] [facility] [address] [id number] [place] [address] 30 Apr, 2012 [facility] [place] [facility] [address] [id number] [place] [address] 30 Apr, 2012 [facility] [place] [facility] [address] [id number] [place] [address] 30 Apr, 2012 [facility] [place] [facility] [address] [id number] [place] [address] Apr, 2012 [facility] [place] [facility] [address] [id number] [place] [address] 15 Apr, 2012 [facility] [place] [facility] [address] [id number] [place] [address] 15 Apr, 2012 [facility] [place] [facility] [address] [id number] [place] [address] Apr, [facility] [place] [facility] [address] [id number] [place] [address] 26 Mar, 2012 [facility] [place] [facility] [address] [id number] [place] [address] 24 Sep, 2012 [facility] [place] [facility] [address] [id number] [place] [address] 17 Sep, 2012 [facility] [place] [facility] [address] [id number] [place] [address] 17 Sep, 2012 [facility] [place] [facility] [address] [id number] [place] [address] 11 Mar, 2012 [facility] [place] [facility] [address] [id number] [place] [address] 10 Sep, 2012 [facility] [place] [facility] [address] [id number] [place] [address] 05 Sep, 2012 [facility] [place] [facility] [address] [id number] [place] [address] 04 Sep, 2012 [facility] [place] [facility] [address] [id number] [place] [address] 20 Jan, 2012 [facility] [place] [facility] [address] [id number] [place] [address] Jan, [facility] [place] [facility] [address] [facility] [id number] [facility] [place] [address] Jan, [facility] [place] [facility] [address] [facility] [id number] [place] [address] Jan, [facility] [place] [facility] [address] [facility] [id number] [facility] [place] [address] Jan, [facility] [place] [facility] [address] [facility] [id number] [place] [address] Jan, [facility] [place] [facility] [address] [facility] [id number] [place] [address] Dec, [facility] [place] [facility] [address] [facility] [id number] [place] [address] 24 Dec, 2012 [facility] [place] [facility] [address] [id number] [facility] [place] [address] Dec, [facility] [place] [facility] [address] [id number] [facility] [place] [address] Dec, [facility] [place] [facility] [address] [facility] [id number] [facility] [place] [address] Dec, [facility] [place] [facility] [address] [id number] [facility] [place] [address] 17 Dec, 2012 [facility] [place] [facility] [address] [id number] [facility] [place] [address] 16 Dec, 2012 [facility] [place] [facility] [address] [id number] [facility] [place] [address] 16 Dec, 2012 [facility] [place] [facility] [address] [facility] [id number] [place] [address] 15 Dec, 2012 [facility] [place] [facility] [address] [facility] [id number] [facility] [place] [address] Dec, [facility] [place] [facility] [address] [facility] [id number] [facility] [place] [address] Dec, [facility] [place] [facility] [address] [id number] [facility] [place] [address] Dec, [facility] [place] [facility] [address] [id number] [facility] [place] [address] Dec, [facility] [place] [facility] [address] [id number] [place] [address] Dec, [facility] [place] [facility] [address] [id number] [place] [address] Dec, [facility] [place] [facility] [address] [id number] [place] [address] Dec, [facility] [place] [facility] [address] [id number] [place] [address] October, [facility] [place] [facility] [address] [id number] [place] [address] October, [facility] [place] [facility] [address] [id number] [place] [address] October, [facility] [place] [facility] [address] [id number] [place] [address] October, [facility] [place] [facility] [address] [id number] [place] [address] October, [facility] [place] [facility] [address] [id number] [place] [address] October, [facility] [place] [facility] [address] [id number] [place] [address] October, [facility] [place] [facility] [address] [id number] [place] [address] Oct, [facility] [place] [facility] [address] [id number] [place] [address] Oct, [facility] [place] [facility] [address] [id number] [place] [address] Oct, [facility] [place] [facility] [address] [id number] [place] [address] Oct, [facility] [place] [facility] [address] [id number] [place] [address] Oct, [facility] [place] [facility] [address] [id number] [place] [address] Oct, [facility] [address] [id number] [place] [address] 17 Oct, 2012 [facility] [place] [facility] [address] [id number] [place] [address] 15 Oct, 2012 [facility] [place] [facility] [address] [id number] [place] [address] 12 Oct, 2012 [facility] [place] [facility] [address] [id number] [place] [address] Oct, [facility] [place] [facility] [address] [id number] [place] [address] Oct, [facility] [place] [facility] [address] [id number] [place] [address] Oct, [facility] [place] [facility] [address] [id number] [place] [address] Aug, [facility] [place] [facility] [address] [id number] [place] [address] Aug, [facility] [place] [facility] [address] [id number] [place] [address] Aug, [facility] [place] [facility] [address] [id number] [place] [address] Aug, [facility] [place] [facility] [address] [id number] [place] [address] 05 Aug, 2012 [facility] [place] [facility] [address] [id number] [place] [address] 05 Aug, 2012 [facility] [place] [facility] [address] [id number] [place] [address] 20 Aug, 2012 [facility] [place] [facility] [address] [id number] [place] [address] 14 Aug, 2012 [facility] [place] [facility] [address] [id number] [place] [address] 12 Aug, 2012 [facility] [place] [facility] [address] [id number] [place] [address] Aug, [facility] [place] [facility] [address] [id number] [place] [address] 29 Jul, 2012 [facility] [place] [facility] [address] [id number] [place] [address] 15 Jul, 2012 [facility] [place] [facility] [address] [id number] [place] [address] 08 Jul, 2012 [facility] [place] [facility] [address] [id number] [place] [address] 20 Jun, 2012 [facility] [place] [facility] [address] [id number] [place] [address] 18 Jun, 2012 [facility] [place] [facility] [address] [id number] [place] [address] 18 Jun, 2012 [facility] [place] [facility] [address] [id number] [place] [address] 18 Jun, 2012 [facility] [place] [facility] [address] [id number] [place] [address] 18 Jun, 2012 [facility] [place] [facility] [address] [id number] [place] [address] 14 Jun, 2012 [facility] [place] [facility] [address] [id number] [place] [address] 14 Jun, 2012 [facility] [place] [facility] [address] [id number] [place] [address] 13 Jun, 2012 [facility] [place] [facility] [address] [id number] [place] [address] 13 Jun, 2012 [facility] [place] [facility] [address] [id number] [place] [address] 11 Jun, 2012 [facility] [place] [facility] [address] [id number] [place] [address] 11 Jun, 2012 [facility] [place] [facility] [address] [id number] [place] [address] 11 Jun, 2012 [facility] [place] [facility] [address] [id number] [place] [address] 11 Jun, 2012 [facility] [place] [facility] [address] [id number] [place] [address] 07 Jun, 2012 [facility] [place] [facility] [address] [id number] [place] [address] Jun, [facility] [place] [facility] [address] [id number] [place] [address] Jun, [facility] [place] [facility] [address] [id number] [place] [address] Jun, [facility] [place] [facility] [address] [id number] [place] [address] Jun, [facility] [place] [facility] [address] [id number] [place] [address] Jun, [facility] [place] [facility] [address] [id number] [place] [address] Jun, [facility] [place] [facility] [address] [id number] [place] [address] Jun, [facility] [place] [facility] [address] [id number] [place] [address] Jun, [facility] [place] [facility] [address] [id number] [place] [address] Jun, [facility] [place] [facility] [address] [id number] [place] [address] May, [facility] [place] [facility] [address] [id number] [place] [address] May, [facility] [place] [facility] [address] [id number] [place] [address] May, [facility] [place] [facility] [address] [id number] [place] [address] May, [facility] [place] [facility] [address] [id number] [place] [address] May, [facility] [place] [facility] [address] [id number] [place] [address] May, [facility] [place] [facility] [address] [id number] [place] [address] May, [facility] [place] [facility] [address] [id number] [place] [address] May, [facility] [place] [facility] [address] [facility] [id number] [place] [address] Apr, 2011 [facility] [place] [facility] [address] [id number] [place] [address] Apr, [facility] [place] [facility] [address] [id number] [place] [address] Apr, 2011 [facility] [place] [facility] [address] [id number] [place] [address] Apr, [facility] [place] [facility] [address] [id number] [place] [address] Apr, [facility] [place] [facility] [address] [id number] [place] [address] Apr, [facility] [place] [facility] [address] [id number] [place] [address] Apr, [facility] [place] [facility] [address] [id number] [place] [address] Apr, [facility] [place] [facility] [address] [id number] [place] [address] 09 Apr, 2012 [facility] [place] [facility] [address] [id number] [place] [address] 08 Apr, 2012 [facility] [place] [facility] [address] [id number] [place] [address] 04 Apr, 2012 [facility] [place] [facility] [address] [id number] [place] [address] 02 Apr, 2012 [facility] [place] [facility] [address] [id number] [place] [address] 19 Mar, 2011 [facility] [place] [facility] [address] [facility] [id number] [place] [address] 18 Sep, 2011 [facility] [place] [facility] [address] [id number] [place] [address] 12 Sep, 2011 [facility] [address] [id number] [place] [address] 12 Mar, 2011 [facility] [address] [facility] [id number] [place] [id number] Mar, [facility] [address] [id number] [place] [id number] Mar, [facility] [address] [id number] [place] [address] Mar, [facility] [address] [id number] [place] [address] Jan, [facility] [address] [id number] [place] [address] Jan, [facility] [address] [id number] [place] [id number] Jan, [facility] [address] [id number] [place] [id number] , [place] [id number] Jan, [facility] [address] [id number] [place] [address] Jan, [facility] [address] [id number] [place] [address] Jan, [facility] [address] [id number] [place] [address] Jan, [facility] [address] [id number] [place] [address] Jan, [facility] [address] [id number] [place] [address] Jan, [facility] [address] [id number] [place] [address] Jan, [facility] [address] [id number] [place] [address] Jan, [facility] [address] [id number] [place] [address] Dec, [facility] [address] [id number] [place] [address] Dec, [facility] [address] [id number] [place] [address] Dec, [facility] [address] [id number] [place] [address] 26 Jan, 2012 [facility] [address] [id number] [facility] [place] [address] 20 Jan, 2012 [facility] [address] [id number] [place] [address] 19 Jan, 2012 [facility] [address] [id number] [facility] [place] [address] 18 Jan, 2012 [facility] [address] [id number] [place] [address] 17 Jan, 2012 [facility] [address] [facility] [id number] [facility] [place] [address] 16 Jan, 2012 [facility] [address] [id number] [place] [address] Dec, [facility] [address] [id number] [place] [address] Dec, [facility] [address] [id number] [place] [address] Dec, [facility] [address] [id number] [place] [address] Dec, [facility] [address] [id number] [place] [address] Dec, [facility] [address] [id number] [place] [address] Dec, [facility] [address] [id number] [place] [address] Dec, [facility] [address] [id number] [place] [address] 15 Dec, 2011 [facility] [address] [id number] [place] [address] 06 Dec, 2011 [facility] [address] [id number] [place] [address] 05 Dec, 2011 [facility] [address] [id number] [place] [address] October, [facility] [address] [id number] [place] [address] October, [facility] [address] [id number] [place] [address] October, [facility] [address] [id number] [place] [address] October, [facility] [address] [id number] [place] [address] October, [facility] [address] [id number] [place] [address] October, [facility] [address] [id number] [place] [address] Oct, [facility] [address] [id number] [place] [address] Oct, [facility] [address] [id number] [place] [address] Oct, [facility] [address] [id number] [place] [address] Oct, [facility] [address] [id number] [place] [address] Oct, [facility] [address] [id number] [place] [address] Oct, [facility] [address] [id number] [place] [address] Oct, [facility] [address] [id number] [place] [address] Aug, [facility] [address] [id number] [place] [address] Aug, [facility] [address] [id number] [place] [address] Aug, [facility] [address] [id number] [place] [address] Aug, [facility] [address] [id number] [place] [address] Aug, [facility] [address] [id number] [place] [address] Aug, [facility] [facility] [address] [id number] [place] [address] Aug, [facility] [address] [id number] [place] [address] Aug, [facility] [address] [id number] [place] [address] Aug, [facility] [address] [id number] [place] [address] Jul, [facility] [address] [id number] [place] [address] Jul, [facility] [address] [id number] [place] [address] Jul, [facility] [address] [id number] [place] [address] Jul, [facility] [address] [id number] [place] [address] Jun, [facility] [address] [id number] [place] [address] Jun, [facility] [address] [id number] [place] [address] May, [facility] [address] [id number] [place] [address] May, [facility] [address] [id number] [place] [address] May, [facility] [address] [id number] [place] [address] May, [facility] [address] [id number] [place] [address] May, [facility] [address] [id number] [place] [address] Apr, [facility] [address] [id number] [place] [address] Apr, [facility] [place] [address] [id number] [place] [address] Apr, [facility] [place] [address] [id number] [place] [address] Jan, [facility] [place] [address] [id number] [place] [address] Dec, [facility] [place] [id number] [place] [address] October, [facility] [place] [address] [id number] [place] [address] Jun, [facility] [place] [address] [id number] [place] [address] Apr, [facility] [place] [address] [id number] [place] [address] Apr, [facility] [place], [facility] [address] [id number] [place] [address] Apr, [facility] [place] [address] [id number] [place] [address] Jun, IMMUNIZATIONS No Known Immunizations SOCIAL HISTORY [...]
--- OUTSIDE RECORDS SUMMARY | 2020-01-25 12:32 | XMS REPORT ---
Author Author Ana Iraheta Organization [facility] Address [address] [place] [address] Care Team Providers Care Diet Counselor Name Role Phone MELISA Iraheta Unavailable PROBLEMS Type Condition ICD9-CM Code VIU14-YT Code Onset Dates Condition S tatus SNOMED Code Problem Chronic hepatitis C without hepatic coma B18.2 Active 364435917 Problem Cannabis abuse F12.10 Active 08171 009 Problem Bipolar 1 disorder F31.9 Active 3 39003275 Problem Attention deficit hyperactivity disorder (ADHD), combi luciano type F90.2 Active 16287908 Problem Attention deficit R41.840 Active 76 529728 Problem Hot flashes due to menopause N95.1 A ctive 686344049 Problem H/O laminectomy Z98.89 Active 1616 08022 Problem Other chronic pain G89.29 Active 8 6069898 Problem Anxiety disorder, unspecified type F41.9 Active 856883913 Problem Bipolar disorder, in partial remission, most rec ent episode hypomanic F31.71 Active [id number] ALLERGIES No Information ENCOUNTERS Encounter Location Date Diagnosis [facility] [id number] [place] [address] Apr, [facility] [address] [address] Mar, Hot flashes due to menopause N95.1 ; Anx iety disorder, unspecified type F41.9 ; Low back pain M54.5 and Encounter for immunization Z23 [facility] [address] [address] Dec, Other chronic pain G89.29 and Low back p ain M54.5 [facility] [id number] [place] [address] October, [facility] [address] [address] October, [facility] [address] [address] October, [facility] [address] [address] October, Other chronic pain G89.29 and Chronic he patitis C without hepatic coma B18.2 [facility] [address] [address] Aug, Bipolar disorder, in partial remission, most recent episode hypomanic F31.71 ; Attention deficit hyperactivity disorder (ADHD), combined type F90.2 and Anxiety disorder, unspecified type F41.9 [facility] [address] [address] Aug, [facility] [address] [address] Aug, Bipolar disorder, in partial remission, most recent episode hypomanic F31.71 [facility] [address] [address] Aug, [facility] [address] [address] Aug, Bipolar disorder, in partial remission, most recent episode hypomanic F31.71 [facility] [address] [address] Aug, Bipolar disorder, in partial remission, most recent episode hypomanic F31.71 ; Attention deficit hyperactivity disorder (ADHD), combined type F90.2 and Anxiety disorder, unspecified type F41.9 [facility] [address] [address] Aug, Low back pain M54.5 and Pain in left wri st M25.532 [facility] [address] [address] Aug, [facility] [address] [address] Jun, [facility] [id number] [place] [address] Apr, Bipolar disorder, in partial remission, most recent episode hypomanic F31.71 [facility] [id number] [place] [address] Apr, [facility] [address] [address] Apr, Bipolar disorder, in partial remission, most recent episode hypomanic F31.71 ; Attention deficit hyperactivity disorder (ADHD), combined type F90.2 ; Anxiety disorder, unspecified type F41.9 and [facility] [place] 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 Z79.899 [facility] [address] [address] Apr, Bipolar disorder, in partial remission, most recent episode hypomanic F31.71 [facility] [id number] [place] [address] Apr, Bipolar disorder, in partial remission, most recent episode hypomanic F31.71 [facility] [address] [address] Mar, [facility] [address] [address] Mar, Bipolar disorder, in partial remission, most recent episode hypomanic F31.71 ; Encounter for immunization Z23 and Low back pain M54.5 [facility] [id number] [place] [address] Mar, Bipolar disorder, in partial remission, most recent episode hypomanic F31.71 [facility] [address] [address] Mar, Bipolar disorder, in partial remission, most recent episode hypomanic F31.71 [facility] [id number] [place] [address] Jan, Bipolar disorder, in partial remission, most recent episode hypomanic F31.71 [facility] [id number] [place] [address] Jan, Bipolar disorder, in partial remission, most recent episode hypomanic F31.71 [facility] [address] [id number] [place] [address] Dec, Bipolar disorder, in partial remission, most recent episode hypomanic F31.71 [facility] [address] [id number] [place] [address] Dec, Bipolar disorder, in partial remission, most recent episode hypomanic F31.71 ; Attention deficit hyperactivity disorder (ADHD), combined type F90.2 ; Anxiety disorder, unspecified type F41.9 and Other [place] [facility] 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 Z79.899 [facility] [id number] [place] [address] Dec, Bipolar disorder, in partial remission, most recent episode hypomanic F31.71 [facility] [id number] [place] [address] Dec, Bipolar disorder, in partial remission, most recent episode hypomanic F31.71 [facility] [id number] [place] [address] October, Bipolar disorder, in partial remission, most recent episode hypomanic F31.71 [facility] [address] [id number] [place] [address] October, [facility] [id number] [place] [address] October, [facility] [address] [id number] [place] [address] Oct, Bipolar disorder, in partial remission, most recent episode hypomanic F31.71 ; Attention deficit hyperactivity disorder (ADHD), combined type F90.2 ; Anxiety disorder, unspecified type F41.9 and Encounter for drug screening Z02.83 [facility] [id number] [place] [address] Oct, Bipolar disorder, in partial remission, most recent episode hypomanic F31.71 [facility] [id number] [place] [address] Oct, Bipolar disorder, in partial remission, most recent episode hypomanic F31.71 [facility] [id number] [place] [address] Aug, Bipolar disorder, in partial remission, most recent episode hypomanic F31.71 [facility] [address] [address] Aug, Bipolar disorder, in partial remission, most recent episode hypomanic F31.71 [facility] [id number] [place] [address] Aug, Bipolar disorder, in partial remission, most recent episode hypomanic F31.71 [facility] [id number] [place] [address] Jul, Bipolar disorder, in partial remission, most recent episode hypomanic F31.71 ; Attention deficit hyperactivity disorder (ADHD), combined type F90.2 and Anxiety disorder, unspecified type F41.9 [facility] [address] [address] Jul, Bipolar disorder, in partial remission, most recent episode hypomanic F31.71 [facility] [id number] [place] [address] Jun, Bipolar disorder, in partial remission, most recent episode hypomanic F31.71 [facility] [address] [address] May, Bipolar disorder, in partial remission, most recent episode hypomanic F31.71 [facility] [id number] [place] [address] May, Bipolar disorder, in partial remission, most recent episode hypomanic F31.71 [facility] [id number] [place] [address] Apr, [facility] [id number] [place] [address] Apr, Bipolar disorder, in partial remission, most recent episode hypomanic F31.71 ; Attention deficit hyperactivity disorder (ADHD), combined type F90.2 ; Anxiety disorder, unspecified type F41.9 and Cannabis abuse F12.10 [facility] [address] [address] Apr, Attention deficit hyperactivity disorder (ADHD), combined type F90.2 [facility] [address] [address] Mar, Attention deficit hyperactivity disorder (ADHD), combined type F90.2 [facility] [address] [address] Mar, Anxiety disorder, unspecified type F41.9 [facility] [address] [address] Jan, Attention deficit hyperactivity disorder (ADHD), combined type F90.2 [facility] [address] [address] Jan, Anxiety disorder, unspecified type F41.9 [facility] [address] [address] Jan, Other chronic pain G89.29 ; Chronic hepa titis C without hepatic coma B18.2 and Bipolar 1 disorder F31.9 [facility] [address] [address] Dec, Attention deficit hyperactivity disorder (ADHD), combined type F90.2 [facility] [address] [address] Dec, Bipolar disorder, in partial remission, most recent episode hypomanic F31.71 ; Attention deficit hyperactivity disorder (ADHD), combined type F90.2 and Anxiety disorder, unspecified type F41.9 [facility] [place] [address] [address] Dec, Bipolar disorder, in partial remission, most recent episode hypomanic F31.71 ; Attention deficit hyperactivity disorder (ADHD), combined type F90.2 and Anxiety disorder, unspecified type F41.9 [facility] [address] [address] Dec, Bipolar 1 disorder F31.9 and Attention d eficit R41.840 [facility] [address] [address] Oct, Other chronic pain G89.29 ; Alopecia L65 .9 and Screening, lipid Z13.220 [facility] [address] [address] Oct, [facility] [address] [address] Aug, [facility] [address] [address] Aug, Eustachian tube dysfunction, right H69.8 1 ; Vertigo R42 and Other chronic pain G89.29 [facility] [address] [address] Aug, [facility] [address] [address] Jun, [facility] [address] [address] Jun, Low back pain M54.5 and Other chronic pa in G89.29 [facility] [address] [address] Jun, [facility] [address] [address] May, [facility] [address] [address] Jan, [facility] [address] [address] Dec, [facility] [address] [address] Dec, [facility] [address] [address] Jun, [facility] [address] [address] Apr, Eustachian tube dysfunction, unspecified laterality H69.80 ; Hot flashes N95.1 and Encounter for immunization Z23 [facility] [address] [address] Jan, [facility] [address] [address] Jan, [facility] [address] [address] Jan, [facility] [address] [address] Jan, [facility] [address] [address] Jan, Encounter to establish care V65.8 ; Bipo lar 1 disorder 296.7 ; Abdominal pain 789.00 ; Constipation 564.00 ; Hard of hearing 389.[address] [facility] [address] [address] Dec, [facility] [address] [address] October, [facility] [address] [address] October, [facility] [address] [address] Oct, [facility] [address] [address] Oct, [facility] [address] [address] Oct, [facility] [address] [address] Aug, [facility] [address] [address] Aug, [facility] [address] [id number] [place] [address] Aug, [facility] [address] [id number] [place] [address] Aug, 2014 [facility] [address] [id number] [place] [address] Aug, 2014 [facility] [address] [id number] [place] [address] Aug, 2014 [facility] [address] [id number] [place] [address] Aug, 2014 [facility] [address] [id number] [place] [address] Aug, 2014 [facility] [address] [id number] [place] [address] Aug, 2014 [facility] [address] [id number] [place] [address] Aug, 2014 [facility] [address] [id number] [place] [address] Aug, 2014 [facility] [address] [id number] [place] [address] Aug, 2014 [facility] [address] [id number] [place] [address] Aug, 2014 [facility] [address] [id number] [place] [address] Aug, 2014 [facility] [address] [id number] [place] [address] Aug, 2014 [facility] [address] [id number] [place] [address] Jul, [facility] [address] [id number] [place] [address] Jul, [facility] [address] [id number] [place] [address] Jul, [facility] [address] [id number] [place] [address] Jul, [facility] [address] [facility] [id number] [place] [address] Jul, [facility] [address] [id number] [place] [address] Jul, [facility] [address] [id number] [place] [address] Jul, [facility] [address] [id number] [place] [address] Jul, [facility] [address] [id number] [place] [address] Jun, [facility] [address] [id number] [place] [address] Jun, [facility] [address] [id number] [place] [address] Jun, [facility] [address] [id number] [place] [address] Jun, [facility] [address] [id number] [place] [address] Jun, [facility] [address] [id number] [place] [address] Jun, [facility] [address] [id number] [place] [address] Jun, [facility] [address] [id number] [place] [address] Jun, [facility] [address] [id number] [place] [address] Jun, [facility] [address] [id number] [place] [address] Jun, [facility] [address] [id number] [place] [address] Jun, [facility] [address] [id number] [place] [address] May, [facility] [address] [id number] [place] [address] May, [facility] [address] [id number] [place] [address] May, [facility] [address] [id number] [place] [address] May, [facility] [address] [id number] [place] [address] May, [facility] [address] [id number] [place] [address] May, [facility] [address] [id number] [place] [address] May, [facility] [address] [id number] [place] [address] Apr, [facility] [address] [id number] [place] [address] Apr, [facility] [address] [id number] [place] [address] Apr, [facility] [address] [id number] [place] [address] Apr, [facility] [address] [id number] [place] [address] Apr, [facility] [address] [id number] [place] [address] Apr, [facility] [address] [id number] [place] [address] 29 Mar, 2014 [facility] [address] [id number] [place] [address] 29 Mar, 2014 [facility] [id number] [place] [address] 10 Mar, 2014 [facility] [address] [id number] [place] [address] 10 Mar, 2014 [facility] [address] [id number] [place] [address] Mar, [facility] [address] [facility] [id number] [place] [address] Mar, [facility] [address] [facility] [id number] [facility] [address] Jan, [facility] [address] [id number] [place] [address] Jan, [facility] [address] [id number] [place] [address] Jan, [facility] [address] [facility] [id number] [place] [address] Jan, [facility] [address] [id number] [place] [address] Dec, [facility] [address] [id number] [place] [address] Dec, [facility] [address] [id number] [place] [address] Dec, [facility] [address] [id number] [place] [address] Dec, [facility] [address] [id number] [place] [address] Dec, [facility] [address] [id number] [place] [address] Dec, [facility] [address] [id number] [place] [address] Dec, [facility] [address] [facility] [id number] [place] [address] Dec, [facility] [address] [id number] [place] [address] Dec, [facility] [address] [id number] [place] [address] Dec, [facility] [address] [id number] [place] [address] Dec, [facility] [address] [id number] [facility] [place] [address] Dec, [facility] [address] [id number] [place] [address] October, [facility] [address] [id number] [place] [address] October, [facility] [address] [id number] [place] [address] October, [facility] [address] [id number] [place] [address] October, [facility] [address] [id number] [place] [address] October, [facility] [address] [id number] [place] [address] October, [facility] [address] [id number] [place] [address] Oct, [facility] [address] [id number] [place] [address] Oct, [facility] [address] [id number] [place] [address] Oct, [facility] [address] [id number] [place] [address] Oct, [facility] [address] [id number] [place] [address] Oct, [facility] [address] [id number] [place] [address] Oct, [facility] [address] [id number] [place] [address] Oct, [facility] [address] [id number] [place] [address] Oct, [facility] [address] [id number] [place] [address] Oct, [facility] [address] [id number] [place] [address] Oct, [facility] [address] [id number] [place] [address] Oct, [facility] [address] [id number] [place] [address] Oct, [facility] [address] [id number] [place] [address] Aug, [facility] [address] [id number] [place] [address] Aug, [facility] [address] [id number] [place] [address] Aug, [facility] [address] [id number] [place] [address] Aug, [facility] [address] [id number] [place] [address] Aug, [facility] [address] [id number] [place] [address] Aug, [facility] [address] [id number] [place] [address] Aug, [facility] [address] [id number] [place] [address] Aug, [facility] [id number] [place] [address] Aug, [facility] [id number] [place] [address] Aug, [facility] [id number] [place] [address] Aug, [facility] [id number] [place] [address] Aug, [facility] [id number] [place] [address] Aug, [facility] [id number] [place] [address] Aug, [facility] [id number] [place] [address] Aug, [facility] [id number] [place] [address] Aug, [facility] [id number] [place] [address] Aug, [facility] [id number] [place] [address] Aug, [facility] [id number] [place] [address] Aug, [facility] [id number] [place] [address] Aug, [facility] [id number] [place] [address] Aug, [facility] [id number] [place] [address] Aug, [facility] [id number] [place] [address] Aug, [facility] [id number] [place] [address] Aug, [facility] [id number] [place] [address] Aug, [facility] [id number] [place] [address] Jul, [facility] [id number] [place] [address] Jul, [facility] [id number] [place] [address] Jul, [facility] [id number] [place] [address] Jul, [facility] [id number] [place] [address] Jul, [facility] [id number] [place] [address] Jul, [facility] [id number] [place] [address] Jul, [facility] [id number] [place] [address] Jul, [facility] [id number] [place] [address] Jul, [facility] [id number] [place] [address] Jul, [facility] [id number] [place] [address] Jul, [facility] [id number] [place] [address] Jul, [facility] [id number] [place] [address] Jul, [facility] [id number] [place] [address] Jul, [facility] [id number] [place] [address] Jul, [facility] [id number] [place] [address] Jul, [facility] [place] [facility] [id number] [place] [address] Jul, [facility] [place] [facility] [id number] [place] [address] Jul, [facility] [place] [facility] [id number] [place] [address] Jul, [facility] [place] [facility] [id number] [place] [address] Jul, [facility] [place] [facility] [id number] [place] [address] Jun, [facility] [place] [facility] [id number] [place] [address] Jun, [facility] [place] [facility] [id number] [place] [address] Jun, [facility] [place] [facility] [address] [facility] [id number] [place] [address] Jun, [facility] [place] [facility] [address] [facility] [id number] [place] [address] Jun, [facility] [place] [facility] [id number] [place] [address] Jun, [facility] [place] [facility] [id number] [place] [address] Jun, [facility] [place] [facility] [address] [facility] [id number] [place] [address] Jun, [facility] [place] [facility] [id number] [place] [address] Jun, [facility] [place] [facility] [id number] [place] [address] Jun, [facility] [place] [facility] [id number] [place] [address] Jun, [facility] [place] [facility] [id number] [place] [address] Jun, [facility] [place] [facility] [id number] [place] [address] Jun, [facility] [place] [facility] [id number] [place] [address] Jun, [facility] [place] [facility] [id number] [place] [address] Jun, [facility] [place] [facility] [id number] [place] [address] Jun, [facility] [place] [facility] [id number] [place] [address] 18 Jun, 2013 [facility] [place] [facility] [id number] [place] [address] 17 Jun, 2013 [facility] [place] [facility] [id number] [place] [address] Jun, [facility] [place] [facility] [id number] [place] [address] 13 Jun, 2012 [facility] [place] [facility] [id number] [place] [address] Jun, [facility] [place] [facility] [id number] [place] [address] Jun, [facility] [place] [facility] [id number] [place] [address] Jun, [facility] [place] [facility] [id number] [place] [address] Jun, [facility] [place] [facility] [id number] [place] [address] Jun, [facility] [place] [facility] [id number] [place] [address] Jun, [facility] [place] [facility] [id number] [place] [address] Jun, [facility] [place] [facility] [id number] [place] [address] May, [facility] [place] [facility] [id number] [place] [address] May, [facility] [place] [facility] [id number] [place] [address] May, [facility] [place] [facility] [id number] [place] [address] May, [facility] [place] [facility] [id number] [place] [address] May, [facility] [place] [facility] [id number] [place] [address] May, [facility] [place] [facility] [id number] [place] [address] Apr, [facility] [place] [facility] [id number] [place] [address] Apr, [facility] [place] [facility] [id number] [place] [address] Apr, [facility] [place] [facility] [id number] [place] [address] 30 Apr, 2012 [facility] [place] [facility] [id number] [place] [address] Apr, [facility] [place] [facility] [id number] [place] [address] 15 Apr, 2012 [facility] [place] [facility] [id number] [place] [address] 15 Apr, 2013 [facility] [place] [facility] [id number] [place] [address] Apr, [facility] [place] [facility] [id number] [place] [address] 26 Mar, 2012 [facility] [place] [facility] [id number] [place] [address] 24 Mar, 2012 [facility] [place] [facility] [id number] [place] [address] 17 Mar, 2012 [facility] [place] [facility] [id number] [place] [address] 17 Mar, 2012 [facility] [place] [facility] [id number] [place] [address] 11 Mar, 2012 [facility] [place] [facility] [id number] [place] [address] 10 Mar, 2012 [facility] [place] [facility] [id number] [place] [address] 05 Sep, 2012 [facility] [place] [facility] [id number] [place] [address] 04 Mar, 2012 [facility] [place] [facility] [id number] [place] [address] 20 Jan, 2013 [facility] [place] [facility] [id number] [place] [address] 19 Jan, 2012 [facility] [place] [facility] [id number] [place] [address] 14 Jan, 2012 [facility] [place] [facility] [id number] [place] [address] Jan, [facility] [place] [facility] [address] [facility] [id number] [facility] [address] Jan, [facility] [place] [facility] [address] [facility] [id number] [place] [address] Jan, [facility] [place] [facility] [address] [facility] [id number] [facility] [address] Dec, [facility] [place] [facility] [address] [facility] [id number] [place] [address] Dec, [facility] [place] [facility] [address] [facility] [id number] [place] [address] Dec, [facility] [place] [facility] [address] [facility] [id number] [place] [address] Dec, [facility] [place] [facility] [id number] [facility] [address] Dec, [facility] [place] [facility] [id number] [facility] [address] Dec, [facility] [place] [facility] [address] [facility] [id number] [facility] [address] Dec, [facility] [place] [facility] [id number] [facility] [address] Dec, [facility] [place] [facility] [id number] [facility] [address] 15 Dec, 2012 [facility] [place] [facility] [id number] [facility] [address] Dec, [facility] [place] [facility] [address] [facility] [id number] [place] [address] Dec, [facility] [place] [facility] [address] [facility] [id number] [facility] [address] Dec, [facility] [place] [facility] [address] [facility] [id number] [facility] [address] Dec, [facility] [place] [facility] [id number] [facility] [address] Dec, [facility] [place] [facility] [address] [id number] [facility] [address] 13 Dec, 2012 [facility] [place] [facility] [address] [id number] [place] [address] Dec, [facility] [place] [facility] [id number] [facility] [address] October, [facility] [place] [facility] [id number] [place] [address] October, [facility] [place] [facility] [id number] [facility] [address] October, [facility] [place] [facility] [address] [id number] [facility] [address] October, [facility] [place] [facility] [id number] [place] [address] October, [facility] [place] [facility] [id number] [place] [address] October, [facility] [place] [facility] [id number] [place] [address] October, [facility] [place] [facility] [id number] [place] [address] 29 Oct, 2012 [facility] [place] [facility] [id number] [place] [address] Oct, [facility] [place] [facility] [id number] [place] [address] 24 Oct, 2012 [facility] [place] [facility] [id number] [place] [address] 23 Oct, 2012 [facility] [place] [facility] [address] [id number] [place] [address] 19 Oct, 2012 [facility] [place] [facility] [address] [id number] [place] [address] 18 Oct, 2012 [facility] [place] [facility] [id number] [place] [address] 17 Oct, 2012 [facility] [place] [facility] [id number] [place] [address] 15 Oct, 2012 [facility] [id number] [place] [address] Oct, [facility] [id number] [place] [address] Oct, [facility] [place] [facility] [id number] [place] [address] Oct, [facility] [place] [facility] [id number] [place] [address] Oct, [facility] [place] [facility] [id number] [place] [address] Aug, [facility] [id number] [place] [address] Aug, [facility] [place] [facility] [id number] [place] [address] Aug, [facility] [place] [facility] [id number] [place] [address] Aug, [facility] [place] [facility] [id number] [place] [address] Aug, [facility] [place] [facility] [id number] [place] [address] Aug, [facility] [place] [facility] [id number] [place] [address] 20 Aug, 2012 [facility] [place] [facility] [id number] [place] [address] 14 Aug, 2012 [facility] [place] [facility] [id number] [place] [address] Aug, [facility] [place] [facility] [id number] [place] [address] Aug, [facility] [place] [facility] [id number] [place] [address] Jul, [facility] [place] [facility] [id number] [place] [address] Jul, [facility] [place] [facility] [id number] [place] [address] 08 Jul, 2012 [facility] [place] [facility] [address] [id number] [place] [address] 20 Jun, 2012 [facility] [place] [facility] [id number] [place] [address] 18 Jun, 2012 [facility] [place] [facility] [id number] [place] [address] 18 Jun, 2012 [facility] [place] [facility] [id number] [place] [address] 18 Jun, 2012 [facility] [place] [facility] [id number] [place] [address] 18 Jun, 2012 [facility] [place] [facility] [id number] [place] [address] 14 Jun, 2012 [facility] [place] [facility] [id number] [place] [address] 14 Jun, 2012 [facility] [place] [facility] [id number] [place] [address] 13 Jun, 2012 [facility] [place] [facility] [id number] [place] [address] 13 Jun, 2012 [facility] [place] [facility] [id number] [place] [address] 11 Jun, 2012 [facility] [place] [facility] [id number] [place] [address] 11 Jun, 2012 [facility] [place] [facility] [id number] [place] [address] 11 Jun, 2012 [facility] [place] [facility] [id number] [place] [address] 11 Jun, 2012 [facility] [place] [facility] [id number] [place] [address] 07 Jun, 2012 [facility] [place] [facility] [id number] [place] [address] 07 Jun, 2012 [facility] [place] [facility] [id number] [place] [address] 06 Jun, 2012 [facility] [place] [facility] [id number] [place] [address] Jun, [facility] [place] [facility] [id number] [place] [address] Jun, [facility] [place] [facility] [id number] [place] [address] Jun, [facility] [place] [facility] [id number] [place] [address] Jun, [facility] [place] [facility] [id number] [place] [address] Jun, [facility] [place] [facility] [id number] [place] [address] Jun, [facility] [place] [facility] [id number] [place] [address] Jun, [facility] [place] [facility] [id number] [place] [address] May, [facility] [place] [facility] [id number] [place] [address] May, [facility] [place] [facility] [id number] [place] [address] May, [facility] [place] [facility] [id number] [place] [address] May, [facility] [place] [facility] [id number] [place] [address] May, [facility] [place] [facility] [id number] [place] [address] May, [facility] [place] [facility] [id number] [place] [address] May, [facility] [place] [facility] [id number] [place] [address] May, [facility] [place] [facility] [id number] [place] [address] Apr, [facility] [place] [facility] [id number] [place] [address] 30 Apr, 2012 [facility] [place] [facility] [id number] [place] [address] Apr, [facility] [place] [facility] [id number] [place] [address] Apr, [facility] [place] [facility] [id number] [place] [address] Apr, [facility] [place] [facility] [id number] [place] [address] Apr, [facility] [place] [facility] [id number] [place] [address] Apr, [facility] [place] [facility] [id number] [place] [address] Apr, [facility] [place] [facility] [id number] [place] [address] 09 Apr, 2012 [facility] [place] [facility] [id number] [place] [address] 08 Apr, 2012 [facility] [place] [facility] [id number] [place] [address] 04 Apr, 2012 [facility] [place] [facility] [id number] [place] [address] 02 Apr, 2012 [facility] [place] [facility] [id number] [place] [address] 19 Mar, 2011 [facility] [place] [facility] [id number] [place] [address] 18 Sep, 2011 [facility] [place] [facility] [id number] [place] [address] 12 Sep, 2011 [facility] [place] [facility] [id number] [place] [address] 12 Sep, 2011 [facility] [place] [facility] [address] [facility] [id number] [place] [id number] 12 Mar, 2011 [facility] [place] [facility] [address] [facility] [id number] [place] [id number] Mar, 2011 [facility] [place] [facility] [id number] [place] [address] Mar, [facility] [place] [facility] [address] [id number] [place] [address] Jan, [facility] [place] [facility] [address] [facility] [id number] [place] [address] Jan, [facility] [place] [facility] [address] [id number] [facility] [place] [id number] Jan, [facility] [place] [facility] [address] [id number] [place] [id number] Jan, [facility] [place] [facility] [address] [id number] [place] [address] Jan, [facility] [place] [facility] [id number] [place] [address] Jan, [facility] [place] [facility] [address] [id number] [place] [address] Jan, [facility] [place] [facility] [id number] [place] [address] Jan, [facility] [place] [facility] [id number] [place] [address] Jan, [facility] [place] [facility] [id number] [place] [address] Jan, [facility] [place] [facility] [id number] [place] [address] Jan, [facility] [place] [facility] [address] [id number] [place] [address] Dec, [facility] [place] [facility] [id number] [place] [address] Dec, [facility] [place] [facility] [address] [id number] [place] [address] Dec, [facility] [place] [facility] [id number] [place] [address] Dec, [facility] [place] [facility] [id number] [place] [address] Dec, [facility] [place] [facility] [id number] [place] [address] 19 Jan, 2012 [facility] [place] [facility] [address] [id number] [place] [address] 18 Jan, 2012 [facility] [place] [facility] [address] [facility] [id number] [place] [address] 17 Jan, 2012 [facility] [place] [facility] [address] [facility] [id number] [place] [address] 16 Jan, 2012 [facility] [place] [facility] [address] [facility] [id number] [place] [address] Dec, [facility] [place] [facility] [address] [facility] [id number] [place] [address] Dec, [facility] [place] [facility] [address] [facility] [id number] [place] [address] Dec, [facility] [place] [facility] [address] [id number] [place] [address] Dec, [facility] [place] [facility] [address] [id number] [place] [address] Dec, [facility] [place] [facility] [address] [id number] [place] [address] Dec, [facility] [place] [facility] [address] [id number] [place] [address] Dec, [facility] [place] [facility] [address] [id number] [place] [address] Dec, [facility] [place] [facility] [address] [id number] [place] [address] Dec, [facility] [place] [facility] [address] [id number] [place] [address] Dec, [facility] [place] [facility] [address] [id number] [place] [address] October, [facility] [id number] [place] [address] October, [facility] [id number] [place] [address] October, [facility] [id number] [place] [address] October, [facility] [address] [id number] [place] [address] October, [facility] [id number] [place] [address] October, [facility] [id number] [place] [address] Oct, [facility] [id number] [place] [address] Oct, [facility] [id number] [place] [address] Oct, [facility] [id number] [place] [address] Oct, [facility] [id number] [place] [address] Oct, [facility] [id number] [place] [address] Oct, [facility] [id number] [place] [address] Oct, [facility] [id number] [place] [address] Aug, [facility] [id number] [place] [address] Aug, [facility] [id number] [place] [address] Aug, [facility] [id number] [place] [address] Aug, [facility] [id number] [place] [address] Aug, [facility] [id number] [place] [address] Aug, [facility] [id number] [place] [address] Aug, [facility] [id number] [place] [address] Aug, [facility] [id number] [place] [address] Aug, [facility] [id number] [place] [address] Jul, [facility] [id number] [place] [address] Jul, [facility] [id number] [place] [address] Jul, [facility] [id number] [place] [address] Jul, [facility] [id number] [place] [address] Jun, [facility] [id number] [place] [address] Jun, [facility] [id number] [place] [address] May, [facility] [id number] [place] [address] May, [facility] [id number] [place] [address] May, [facility] [id number] [place] [address] May, [facility] [address] [id number] [place] [address] May, [facility] [id number] [place] [address] Apr, [facility] [id number] [place] [address] Apr, [facility] [id number] [place] [address] 10 Apr, 2011 [facility] [id number] [place] [address] Jan, [facility] [id number] [place] [address] Dec, [facility] [id number] [place] [address] October, [facility] [id number] [place] [address] Jun, [facility] [id number] [place] [address] Apr, [facility] [id number] [place] [address] Apr, [facility] [id number] [place] [address] Apr, [facility] [id number] [place] [address] Jun, IMMUNIZATIONS No Known Immunizations SOCIAL HISTORY [...]
--- OUTSIDE RECORDS SUMMARY | 2020-01-25 12:33 | XMS REPORT ---
Author Author Ana Iraheta Organization [facility] Address [address] [place] [address] Care Team Providers Care Kid Club Attendant Name Role Phone MELISA Iraheta Unavailable PROBLEMS Type Condition ICD9-CM Code XUE29-VK Code Onset Dates Condition S tatus SNOMED Code Problem Chronic hepatitis C without hepatic coma B18.2 Active 372198573 Problem Cannabis abuse F12.10 Active 05733 009 Problem Bipolar 1 disorder F31.9 Active 3 82647844 Problem Attention deficit hyperactivity disorder (ADHD), combi luciano type F90.2 Active 97726815 Problem Attention deficit R41.840 Active 76 295584 Problem Hot flashes due to menopause N95.1 A ctive 254629297 Problem H/O laminectomy Z98.89 Active 1616 97837 Problem Other chronic pain G89.29 Active 8 3057678 Problem Anxiety disorder, unspecified type F41.9 Active 321319464 Problem Bipolar disorder, in partial remission, most rec ent episode hypomanic F31.71 Active [id number] ALLERGIES No Information ENCOUNTERS Encounter Location Date Diagnosis [place] [address] [facility] [place] [id number] [address] [place] [address] Apr, [place] [id number] [facility] [place] [id number] [address] [place] [address] Mar, Hot flashes due to menopause N95.1 ; Anxiety disorder, unspecified type F41.9 ; Low back pain M54.5 and Encounter for immunization Z23 [facility] [address] [facility] [place] [id number] [address] [place] [address] Dec, Other chronic pain G89.29 an d Low back pain M54.5 [place] [id number] [facility] [place] [id number] [address] [place] [address] October, [place] [address] [id number] [address] [place] [address] October, [facility] [address] [facility] [place] [id number] [address] [place] [address] October, [facility] [address] [facility] [place] [id number] [address] [place] [address] October, Other chronic pain G89.29 an d Chronic hepatitis C without hepatic coma B18.2 [facility] [address] [facility] [place] [id number] [address] [place] [address] Aug, Bipolar disorder, in partial remission, most recent episode hypomanic F31.71 ; Attention deficit hyperactivity disorder (ADHD), combined type F90.2 and Anxiety disorder, unspecified type F41.9 [facility] [address] [facility] [place] [id number] [address] [place] [address] Aug, [facility] [address] [facility] [place] [id number] [address] [place] [address] Aug, Bipolar disorder, in partial remission, most recent episode hypomanic F31.71 [facility] [address] [facility] [place] [id number] [address] [place] [address] Aug, [facility] [address] [facility] [place] [id number] [address] [place] [address] Aug, Bipolar disorder, in partial remission, most recent episode hypomanic F31.71 [facility] [address] [facility] [place] [id number] [address] [place] [address] Aug, Bipolar disorder, in partial remission, most recent episode hypomanic F31.71 ; Attention deficit hyperactivity disorder (ADHD), combined type F90.2 and Anxiety disorder, unspecified type F41.9 [facility] [address] [facility] [place] [id number] [address] [place] [address] Aug, Low back pain M54.5 and Pain in left wrist M25.532 [facility] [address] [facility] [place] [id number] [address] [place] [address] Aug, [facility] [address] [id number] [address] [place] [address] Jun, [facility] [address] [id number] [address] [place] [address] Apr, Bipolar disorder, in partial remission, most recent episode hypomanic F31.71 [facility] [address] [id number] [address] [place] [address] Apr, [facility] [address] [id number] [address] [place] [address] Apr, Bipolar disorder, in partial remission, most recent episode hypomanic F31.71 ; Attention deficit hyperactivity disorder (ADHD), combined type F90.2 ; Anxiety disorder, unspecified type F41.9 and Other group home (current) 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 Z79.899 [facility] [address] [id number] [address] [place] [address] Apr, Bipolar disorder, in partial remission, most recent episode hypomanic F31.71 [facility] [address] [id number] [address] [place] [address] Apr, Bipolar disorder, in partial remission, most recent episode hypomanic F31.71 [facility] [address] [id number] [address] [place] [address] Mar, [facility] [address] [id number] [address] [place] [address] Mar, Bipolar disorder, in partial remission, most recent episode hypomanic F31.71 ; Encounter for immunization Z23 and Low back pain M54.5 [facility] [address] [id number] [address] [place] [address] 17 Mar, 2018 Bipolar disorder, in partial remission, most recent episode hypomanic F31.71 [facility] [address] [id number] [address] [place] [address] 13 Mar, 2018 Bipolar disorder, in partial remission, most recent episode hypomanic F31.71 [facility] [address] [facility] [place] [id number] [address] [place] [address] Jan, Bipolar disorder, in partial remission, most recent episode hypomanic F31.71 [facility] [address] [facility] [place] [id number] [address] [place] [address] Jan, Bipolar disorder, in partial remission, most recent episode hypomanic F31.71 [facility] [address] [facility] [place] [id number] [address] [place] [address] Dec, Bipolar disorder, in partial remission, most recent episode hypomanic F31.71 [facility] [address] [id number] [address] [place] [address] Dec, Bipolar disorder, in partial remission, most recent episode hypomanic F31.71 ; Attention deficit hyperactivity disorder (ADHD), combined type F90.2 ; Anxiety disorder, unspecified type F41.9 and 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 [facility] [address] [facility] [place] [id number] [address] [place] [address] Dec, Bipolar disorder, in partial remission, most recent episode hypomanic F31.71 [facility] [address] [facility] [place] [id number] [address] [place] [address] Dec, Bipolar disorder, in partial remission, most recent episode hypomanic F31.71 [facility] [address] [facility] [place] [id number] [address] [place] [address] October, Bipolar disorder, in partial remission, most recent episode hypomanic F31.71 [facility] [address] [facility] [place] [id number] [address] [place] [address] October, [facility] [address] [facility] [place] [id number] [address] [place] [address] October, [facility] [address] [facility] [place] [id number] [address] [place] [address] Oct, Bipolar disorder, in partial remission, most recent episode hypomanic F31.71 ; Attention deficit hyperactivity disorder (ADHD), combined type F90.2 ; Anxiety disorder, unspecified type F41.9 and Encounter for drug screening Z02.83 [facility] [address] [facility] [place] [id number] [address] [place] [address] Oct, Bipolar disorder, in partial remission, most recent episode hypomanic F31.71 [facility] [address] [id number] [address] [place] [address] Oct, Bipolar disorder, in partial remission, most recent episode hypomanic F31.71 [facility] [address] [facility] [place] [id number] [address] [place] [address] Aug, Bipolar disorder, in partial remission, most recent episode hypomanic F31.71 [facility] [address] [facility] [place] [id number] [address] [place] [address] Aug, Bipolar disorder, in partial remission, most recent episode hypomanic F31.71 [facility] [address] [facility] [place] [id number] [address] [place] [address] Aug, Bipolar disorder, in partial remission, most recent episode hypomanic F31.71 [facility] [address] [id number] [address] [place] [address] Jul, Bipolar disorder, in partial remission, most recent episode hypomanic F31.71 ; Attention deficit hyperactivity disorder (ADHD), combined type F90.2 and Anxiety disorder, unspecified type F41.9 [facility] [address] [facility] [place] [id number] [address] [place] [address] Jul, Bipolar disorder, in partial remission, most recent episode hypomanic F31.71 [facility] [address] [id number] [address] [place] [address] Jun, Bipolar disorder, in partial remission, most recent episode hypomanic F31.71 [facility] [address] [facility] [place] [id number] [address] [place] [address] May, Bipolar disorder, in partial remission, most recent episode hypomanic F31.71 [facility] [address] [facility] [place] [id number] [address] [place] [address] May, Bipolar disorder, in partial remission, most recent episode hypomanic F31.71 [facility] [address] [facility] [place] [id number] [address] [place] [address] Apr, [facility] [address] [facility] [place] [id number] [address] [place] [address] Apr, Bipolar disorder, in partial remission, most recent episode hypomanic F31.71 ; Attention deficit hyperactivity disorder (ADHD), combined type F90.2 ; Anxiety disorder, unspecified type F41.9 and Cannabis abuse F12.10 [facility] [address] [facility] [place] [id number] [address] [place] [address] Apr, Attention deficit hyperactiv ity disorder (ADHD), combined type F90.2 [facility] [address] [facility] [place] [id number] [address] [place] [address] Mar, Attention deficit hyperactiv ity disorder (ADHD), combined type F90.2 [facility] [address] [facility] [place] [id number] [address] [place] [address] Mar, Anxiety disorder, unspecifie d type F41.9 [facility] [address] [facility] [place] [id number] [address] [place] [address] Jan, Attention deficit hyperactiv ity disorder (ADHD), combined type F90.2 [facility] [address] [facility] [place] [id number] [address] [place] [address] Jan, Anxiety disorder, unspecifie d type F41.9 [facility] [address] [facility] [place] [id number] [address] [place] [address] Jan, Other chronic pain G89.29 ; Chronic hepatitis C without hepatic coma B18.2 and Bipolar 1 disorder F31.9 [facility] [address] [facility] [place] [id number] [address] [place] [address] Dec, Attention deficit hyperactiv ity disorder (ADHD), combined type F90.2 [facility] [address] [facility] [place] [id number] [address] [place] [address] Dec, Bipolar disorder, in partial remission, most recent episode hypomanic F31.71 ; Attention deficit hyperactivity disorder (ADHD), combined type F90.2 and Anxiety disorder, unspecified type F41.9 [facility] [address] [id number] [address] [place] [address] Dec, Bipolar disorder, in partial remission, most recent episode hypomanic F31.71 ; Attention deficit hyperactivity disorder (ADHD), combined type F90.2 and Anxiety disorder, unspecified type F41.9 [facility] [address] [id number] [address] [place] [address] Dec, Bipolar 1 disorder F31.9 and Attention deficit R41.840 [facility] [address] [facility] [place] [id number] [address] [place] [address] Oct, Other chronic pain G89.29 ; Alopecia L65.9 and Screening, lipid Z13.220 [facility] [address] [facility] [place] [id number] [address] [place] [address] Oct, [facility] [address] [facility] [place] [id number] [address] [place] [address] Aug, [facility] [address] [facility] [place] [id number] [address] [place] [address] Aug, Eustachian tube dysfunction, right H69.81 ; Vertigo R42 and Other chronic pain G89.29 [facility] [address] [facility] [place] [id number] [address] [place] [address] Aug, [facility] [address] [id number] [address] [place] [address] Jun, [facility] [address] [facility] [place] [id number] [address] [place] [address] Jun, Low back pain M54.5 and Othe r chronic pain G89.29 [facility] [address] [facility] [place] [id number] [address] [place] [address] Jun, [facility] [address] [facility] [place] [id number] [address] [place] [address] May, [facility] [address] [facility] [place] [id number] [address] [place] [address] Jan, [facility] [address] [facility] [place] [id number] [address] [place] [address] Dec, [facility] [address] [facility] [place] [id number] [address] [place] [address] Dec, [facility] [address] [place] [id number] [address] [place] [address] Jun, [facility] [address] [place] [id number] [place] [address] Apr, Eustachian tube dysfunction, unspecified laterality H69.80 ; Hot flashes N95.1 and Encounter for immunization Z23 [facility] [address] [address] Jan, [facility] [address] [place] [id number] [place] [address] Jan, [facility] [address] [address] Jan, [facility] [address] [place] [id number] [place] [address] Jan, [facility] [address] [place] [id number] [address] [place] [address] Jan, Encounter to establish care V65.8 ; Bipolar 1 disorder 296.7 ; Abdominal pain 789.00 ; Constipation 564.00 ; Hard of hearing 389.9 and Drug abuse 305.90 [facility] [address] [place] [id number] [address] [place] [address] Dec, [facility] [address] [place] [id number] [address] [place] [address] October, [facility] [address] [place] [id number] [address] [place] [address] October, [facility] [address] [id number] [address] [place] [address], [place] [address] 30 Oct, 2014 [facility] [address] [id number] [address] [place] [address], [place] [address] 14 Oct, 2014 [facility] [address] [id number] [address] [place] [address], [place] [address] Oct, [facility] [address] [id number] [address] [place] [address], [place] [address] Aug, [facility] [address] [id number] [address] [place] [address], [place] [address] Aug, [facility] [address] [id number] [address] [place] [address], [place] [address] Aug, [facility] [address] [id number] [address] [place] [address], [place] [address] Aug, [facility] [address] [id number] [address] [place] [address], [place] [address] Aug, 2014 [facility] [address] [id number] [address] [place] [address], [place] [address] Aug, [facility] [address] [id number] [address] [place] [address], [place] [address] Aug, [facility] [address] [id number] [address] [place] [address], [place] [address] Aug, 2014 [facility] [address] [id number] [address] [place] [address], [place] [address] Aug, 2014 [facility] [address] [id number] [address] [place] [address], [place] [address] Aug, 2014 [facility] [address] [id number] [address] [place] [address], [place] [address] Aug, 2014 [facility] [address] [id number] [address] [place] [address], [place] [address] 05 Aug, 2014 [facility] [address] [id number] [address] [place] [address], [place] [address] Aug, [facility] [address] [id number] [address] [place] [address], [place] [address] Aug, [facility] [address] [id number] [address] [place] [address], [place] [address] Aug, [facility] [address] [id number] [address] [place] [address], [place] [address] Jul, [facility] [address] [id number] [address] [place] [address], [place] [address] Jul, [facility] [address] [id number] [address] [place] [address], [place] [address] Jul, [facility] [address] [id number] [address] [place] [address], [place] [address] Jul, [facility] [address] [id number] [address] [place] [address], [place] [address] Jul, [facility] [address] [id number] [address] [place] [address], [place] [address] Jul, [facility] [address] [id number] [address] [place] [address], [place] [address] Jul, [facility] [address] [id number] [address] [place] [address], [place] [address] Jul, [facility] [address] [id number] [address] [place] [address], [place] [address] Jun, [facility] [address] [id number] [address] [place] [address], [place] [address] Jun, [facility] [address] [id number] [address] [place] [address], [place] [address] Jun, [facility] [address] [id number] [address] [place] [address], [place] [address] Jun, [facility] [address] [id number] [address] [place] [address], [place] [address] 18 Jun, 2014 [facility] [address] [id number] [address] [place] [address], [place] [address] 15 Jun, 2014 [facility] [address] [id number] [address] [place] [address], [place] [address] 15 Jun, 2014 [facility] [address] [id number] [address] [place] [address], [place] [address] Jun, [facility] [address] [id number] [address] [place] [address], [place] [address] Jun, [facility] [address] [id number] [address] [place] [address], [place] [address] Jun, [facility] [address] [id number] [address] [place] [address], [place] [address] Jun, [facility] [address] [id number] [address] [place] [address], [place] [address] May, [facility] [address] [id number] [address] [place] [address], [place] [address] May, [facility] [address] [id number] [address] [place] [address], [place] [address] May, [facility] [address] [id number] [address] [place] [address], [place] [address] May, [facility] [address] [id number] [address] [place] [address], [place] [address] May, [facility] [address] [id number] [address] [place] [address], [place] [address] May, [facility] [address] [id number] [address] [place] [address], [place] [address] May, [facility] [address] [id number] [address] [place] [address], [place] [address] Apr, [facility] [address] [id number] [address] [place] [address], [place] [address] Apr, [facility] [address] [id number] [address] [place] [address], [place] [address] Apr, [facility] [address] [id number] [address] [place] [address], [place] [address] Apr, [facility] [address] [id number] [address] [place] [address], [place] [address] Apr, [facility] [address] [id number] [address] [place] [address], [place] [address] Apr, [facility] [address] [id number] [address] [place] [address], [place] [address] Mar, [facility] [address] [id number] [address] [place] [address], [place] [address] Mar, [facility] [address] [id number] [address] [place] [address], [place] [address] Mar, [facility] [address] [id number] [address] [place] [address], [place] [address] Mar, [facility] [address] [id number] [address] [place] [address], [place] [address] Mar, [facility] [address] [id number] [address] [place] [address], [place] [address] Mar, [facility] [address] [id number] [address] [place] [address], [place] [address] Jan, [facility] [address] [id number] [address] [place] [address], [place] [address] Jan, [facility] [address] [id number] [address] [place] [address], [place] [address] Jan, [facility] [address] [id number] [address] [place] [address], [place] [address] Jan, [facility] [address] [id number] [address] [place] [address], [place] [address] Dec, [facility] [address] [id number] [address] [place] [address], [place] [address] Dec, [facility] [address] [id number] [address] [place] [address], [place] [address] Dec, [facility] [address] [id number] [address] [place] [address], [place] [address] Dec, [facility] [address] [id number] [address] [place] [address], [place] [address] Dec, [facility] [address] [id number] [address] [place] [address], [place] [address] Dec, [facility] [address] [id number] [address] [place] [address], [place] [address] Dec, [facility] [address] [id number] [address] [place] [address], [place] [address] Dec, [facility] [address] [id number] [address] [place] [address], [place] [address] Dec, [facility] [address] [id number] [address] [place] [address], [place] [address] Dec, [facility] [address] [id number] [address] [place] [address], [place] [address] Dec, [facility] [address] [id number] [address] [place] [address], [place] [address] Dec, [facility] [address] [id number] [address] [place] [address], [place] [address] October, [facility] [address] [id number] [address] [place] [address], [place] [address] October, [facility] [address] [id number] [address] [place] [address], [place] [address] October, [facility] [address] [id number] [address] [place] [address], [place] [address] October, [facility] [address] [id number] [address] [place] [address], [place] [address] October, [facility] [address] [id number] [address] [place] [address], [place] [address] October, [facility] [address] [id number] [address] [place] [address], [place] [address] Oct, [facility] [address] [id number] [address] [place] [address], [place] [address] Oct, [facility] [address] [id number] [address] [place] [address], [place] [address] Oct, [facility] [address] [id number] [address] [place] [address], [place] [address] Oct, [facility] [address] [id number] [address] [place] [address], [place] [address] Oct, [facility] [address] [id number] [address] [place] [address], [place] [address] Oct, [facility] [address] [id number] [address] [place] [address], [place] [address] Oct, [facility] [address] [id number] [address] [place] [address], [place] [address] Oct, [facility] [address] [id number] [address] [place] [address], [place] [address] Oct, [facility] [address] [id number] [address] [place] [address], [place] [address] Oct, [facility] [address] [id number] [address] [place] [address], [place] [address] Oct, [facility] [address] [id number] [address] [place] [address], [place] [address] Oct, [facility] [address] [id number] [address] [place] [address], [place] [address] Aug, [facility] [address] [id number] [address] [place] [address], [place] [address] Aug, [facility] [address] [id number] [address] [place] [address], [place] [address] Aug, [facility] [address] [id number] [address] [place] [address], [place] [address] 11 Aug, 2013 [facility] [address] [id number] [address] [place] [address], [place] [address] 05 Aug, 2013 [facility] [address] [id number] [address] [place] [address], [place] [address] 05 Aug, 2013 [facility] [address] [id number] [address] [place] [address], [place] [address] 04 Aug, 2013 [facility] [address] [id number] [address] [place] [address], [place] [address] Aug, [facility] [address] [id number] [address] [place] [address], [place] [address] Aug, [facility] [address] [id number] [address] [place] [address], [place] [address] 24 Aug, 2013 [facility] [address] [id number] [address] [place] [address], [place] [address] 24 Aug, 2013 [facility] [address] [id number] [address] [place] [address], [place] [address] Aug, [facility] [address] [id number] [address] [place] [address], [place] [address] Aug, [facility] [address] [id number] [address] [place] [address], [place] [address] 20 Aug, 2013 [facility] [address] [id number] [address] [place] [address], [place] [address] 14 Aug, 2013 [facility] [address] [id number] [address] [place] [address], [place] [address] Aug, [facility] [address] [id number] [address] [place] [address], [place] [address] 14 Aug, 2013 [facility] [address] [id number] [address] [place] [address], [place] [address] 14 Aug, 2013 [facility] [address] [id number] [address] [place] [address], [place] [address] 07 Aug, 2013 [facility] [address] [id number] [address] [place] [address], [place] [address] 07 Aug, 2013 [facility] [address] [id number] [address] [place] [address], [place] [address] 06 Aug, 2013 [facility] [address] [id number] [address] [place] [address], [place] [address] Aug, [facility] [address] [id number] [address] [place] [address], [place] [address] Aug, [facility] [address] [id number] [address] [place] [address], [place] [address] Aug, [facility] [address] [id number] [address] [place] [address], [place] [address] Aug, [facility] [address] [id number] [address] [place] [address], [place] [address] Jul, [facility] [address] [id number] [address] [place] [address], [place] [address] Jul, [facility] [address] [id number] [address] [place] [address], [place] [address] Jul, [facility] [address] [id number] [address] [place] [address], [place] [address] Jul, [facility] [address] [id number] [address] [place] [address], [place] [address] Jul, [facility] [address] [id number] [address] [place] [address], [place] [address] Jul, [facility] [address] [id number] [address] [place] [address], [place] [address] Jul, [facility] [address] [id number] [address] [place] [address], [place] [address] Jul, [facility] [address] [id number] [address] [place] [address], [place] [address] Jul, [facility] [address] [id number] [address] [place] [address], [place] [address] Jul, [facility] [address] [id number] [address] [place] [address], [place] [address] Jul, [facility] [address] [id number] [address] [place] [address], [place] [address] Jul, [facility] [address] [id number] [address] [place] [address], [place] [address] Jul, [facility] [address] [id number] [address] [place] [address], [place] [address] Jul, [facility] [address] [id number] [address] [place] [address], [place] [address] Jul, [facility] [address] [id number] [address] [place] [address], [place] [address] Jul, [facility] [address] [id number] [address] [place] [address], [place] [address] Jul, [facility] [address] [id number] [address] [place] [address], [place] [address] Jul, [facility] [address] [id number] [address] [place] [address], [place] [address] Jul, [facility] [address] [id number] [address] [place] [address], [place] [address] Jul, [facility] [address] [id number] [address] [place] [address], [place] [address] Jun, [facility] [address] [id number] [address] [place] [address], [place] [address] Jun, [facility] [address] [id number] [address] [place] [address], [place] [address] Jun, [facility] [address] [id number] [address] [place] [address], [place] [address] Jun, [facility] [address] [id number] [address] [place] [address], [place] [address] Jun, [facility] [address] [id number] [address] [place] [address], [place] [address] Jun, [facility] [address] [id number] [address] [place] [address], [place] [address] Jun, [facility] [address] [id number] [address] [place] [address], [place] [address] Jun, [facility] [address] [id number] [address] [place] [address], [place] [address] Jun, [facility] [address] [id number] [address] [place] [address], [place] [address] Jun, [facility] [address] [id number] [address] [place] [address], [place] [address] Jun, [facility] [address] [id number] [address] [place] [address], [place] [address] Jun, [facility] [address] [id number] [address] [place] [address], [place] [address] Jun, [facility] [address] [id number] [address] [place] [address], [place] [address] Jun, [facility] [address] [id number] [address] [place] [address], [place] [address] Jun, [facility] [address] [id number] [address] [place] [address], [place] [address] 18 Jun, 2013 [facility] [address] [id number] [address] [place] [address], [place] [address] 18 Jun, 2013 [facility] [address] [id number] [address] [place] [address], [place] [address] 17 Jun, 2013 [facility] [address] [id number] [address] [place] [address], [place] [address] 17 Jun, 2013 [facility] [address] [id number] [address] [place] [address], [place] [address] 13 Jun, 2013 [facility] [address] [id number] [address] [place] [address], [place] [address] Jun, [facility] [address] [id number] [address] [place] [address], [place] [address] Jun, [facility] [address] [id number] [address] [place] [address], [place] [address] Jun, [facility] [address] [id number] [address] [place] [address], [place] [address] Jun, [facility] [address] [id number] [address] [place] [address], [place] [address] Jun, [facility] [address] [id number] [address] [place] [address], [place] [address] Jun, [facility] [address] [id number] [address] [place] [address], [place] [address] Jun, [facility] [address] [id number] [address] [place] [address], [place] [address] May, [facility] [address] [id number] [address] [place] [address], [place] [address] May, [facility] [address] [id number] [address] [place] [address], [place] [address] May, [facility] [address] [id number] [address] [place] [address], [place] [address] May, [facility] [address] [id number] [address] [place] [address], [place] [address] May, [facility] [address] [id number] [address] [place] [address], [place] [address] May, [facility] [address] [id number] [address] [place] [address], [place] [address] Apr, [facility] [address] [id number] [address] [place] [address], [place] [address] Apr, [facility] [address] [id number] [address] [place] [address], [place] [address] Apr, [facility] [address] [id number] [address] [place] [address], [place] [address] 30 Apr, 2013 [facility] [address] [id number] [address] [place] [address], [place] [address] Apr, [facility] [address] [id number] [address] [place] [address], [place] [address] 15 Apr, 2013 [facility] [address] [id number] [address] [place] [address], [place] [address] 15 Apr, 2013 [facility] [address] [id number] [address] [place] [address], [place] [address] Apr, [facility] [address] [id number] [address] [place] [address], [place] [address] 26 Mar, 2013 [facility] [address] [id number] [address] [place] [address], [place] [address] 24 Mar, 2013 [facility] [address] [id number] [address] [place] [address], [place] [address] 17 Mar, 2013 [facility] [address] [id number] [address] [place] [address], [place] [address] 17 Mar, 2013 [facility] [address] [id number] [address] [place] [address], [place] [address] 11 Mar, 2013 [facility] [address] [id number] [address] [place] [address], [place] [address] 10 Mar, 2013 [facility] [address] [id number] [address] [place] [address] 05 Mar, 2013 [facility] [address] [id number] [address] [place] [address], [place] [address] 04 Mar, 2013 [facility] [address] [id number] [address] [place] [address], [place] [address] 20 Jan, 2013 [facility] [address] [id number] [address] [place] [address], [place] [address] Jan, [facility] [address] [id number] [address] [place] [address], [place] [address] 14 Jan, 2013 [facility] [address] [id number] [address] [place] [address], [place] [address] 12 Jan, 2013 [facility] [address] [id number] [address] [place] [address], [place] [address] Jan, [facility] [address] [id number] [address] [place] [address], [place] [address] 05 Jan, 2013 [facility] [address] [id number] [address] [place] [address], [place] [address] 31 Dec, 2012 [facility] [address] [id number] [address] [place] [address], [place] [address] 24 Dec, 2012 [facility] [address] [id number] [address] [place] [address], [place] [address] Dec, [facility] [address] [id number] [address] [place] [address], [place] [address] Dec, [facility] [address] [id number] [address] [place] [address], [place] [address] 18 Dec, 2012 [facility] [address] [id number] [address] [place] [address], [place] [address] 17 Dec, 2012 [facility] [address] [id number] [address] [place] [address], [place] [address] 16 Dec, 2012 [facility] [address] [id number] [address] [place] [address], [place] [address] 16 Dec, 2012 [facility] [address] [id number] [address] [place] [address], [place] [address] 15 Dec, 2012 [facility] [address] [id number] [address] [place] [address], [place] [address] Dec, [facility] [address] [id number] [address] [place] [address], [place] [address] Dec, [facility] [address] [id number] [address] [place] [address], [place] [address] Dec, [facility] [address] [id number] [address] [place] [address], [place] [address] Dec, [facility] [address] [id number] [address] [place] [address], [place] [address] Dec, [facility] [address] [id number] [address] [place] [address], [place] [address] Dec, [facility] [address] [id number] [address] [place] [address], [place] [address] Dec, [facility] [address] [id number] [address] [place] [address], [place] [address] October, [facility] [address] [id number] [address] [place] [address], [place] [address] October, [facility] [address] [id number] [address] [place] [address], [place] [address] October, [facility] [address] [id number] [address] [place] [address], [place] [address] October, [facility] [address] [id number] [address] [place] [address], [place] [address] October, [facility] [address] [id number] [address] [place] [address], [place] [address] October, [facility] [address] [id number] [address] [place] [address], [place] [address] October, [facility] [address] [id number] [address] [place] [address], [place] [address] Oct, [facility] [address] [id number] [address] [place] [address], [place] [address] Oct, [facility] [address] [id number] [address] [place] [address], [place] [address] Oct, [facility] [address] [id number] [address] [place] [address], [place] [address] Oct, [facility] [address] [id number] [address] [place] [address], [place] [address] 19 Oct, 2012 [facility] [address] [id number] [address] [place] [address], [place] [address] 18 Oct, 2012 [facility] [address] [id number] [address] [place] [address], [place] [address] 17 Oct, 2012 [facility] [address] [id number] [address] [place] [address], [place] [address] 15 Oct, 2012 [facility] [address] [id number] [address] [place] [address], [place] [address] 12 Oct, 2012 [facility] [address] [id number] [address] [place] [address], [place] [address] Oct, [facility] [address] [id number] [address] [place] [address], [place] [address] Oct, [facility] [address] [id number] [address] [place] [address], [place] [address] Oct, [facility] [address] [id number] [address] [place] [address], [place] [address] Aug, [facility] [address] [id number] [address] [place] [address], [place] [address] Aug, [facility] [address] [id number] [address] [place] [address], [place] [address] Aug, [facility] [address] [id number] [address] [place] [address], [place] [address] Aug, [facility] [address] [id number] [address] [place] [address], [place] [address] 05 Aug, 2012 [facility] [address] [id number] [address] [place] [address], [place] [address] 05 Aug, 2012 [facility] [address] [id number] [address] [place] [address], [place] [address] 20 Aug, 2012 [facility] [address] [id number] [address] [place] [address], [place] [address] 14 Aug, 2012 [facility] [address] [id number] [address] [place] [address], [place] [address] 12 Aug, 2012 [facility] [address] [id number] [address] [place] [address], [place] [address] 11 Aug, 2012 [facility] [address] [id number] [address] [place] [address], [place] [address] 29 Jul, 2012 [facility] [address] [id number] [address] [place] [address], [place] [address] 15 Jul, 2012 [facility] [address] [id number] [address] [place] [address], [place] [address] 08 Jul, 2012 [facility] [address] [id number] [address] [place] [address], [place] [address] 20 Jun, 2012 [facility] [address] [id number] [address] [place] [address], [place] [address] 18 Jun, 2012 [facility] [address] [id number] [address] [place] [address], [place] [address] 18 Jun, 2012 [facility] [address] [id number] [address] [place] [address], [place] [address] 18 Jun, 2012 [facility] [address] [id number] [address] [place] [address], [place] [address] 18 Jun, 2012 [facility] [address] [id number] [address] [place] [address], [place] [address] 14 Jun, 2012 [facility] [address] [id number] [address] [place] [address], [place] [address] 14 Jun, 2012 [facility] [address] [id number] [address] [place] [address], [place] [address] 13 Jun, 2012 [facility] [address] [id number] [address] [place] [address], [place] [address] 13 Jun, 2012 [facility] [address] [id number] [address] [place] [address], [place] [address] 11 Jun, 2012 [facility] [address] [id number] [address] [place] [address], [place] [address] Jun, [facility] [address] [id number] [address] [place] [address], [place] [address] Jun, [facility] [address] [id number] [address] [place] [address], [place] [address] Jun, [facility] [address] [id number] [address] [place] [address], [place] [address] Jun, [facility] [address] [id number] [address] [place] [address], [place] [address] Jun, [facility] [address] [id number] [address] [place] [address], [place] [address] Jun, [facility] [address] [id number] [address] [place] [address], [place] [address] Jun, [facility] [address] [id number] [address] [place] [address], [place] [address] Jun, [facility] [address] [id number] [address] [place] [address], [place] [address] Jun, [facility] [address] [id number] [address] [place] [address], [place] [address] Jun, [facility] [address] [id number] [address] [place] [address], [place] [address] Jun, [facility] [address] [id number] [address] [place] [address], [place] [address] Jun, [facility] [address] [id number] [address] [place] [address], [place] [address] Jun, [facility] [address] [id number] [address] [place] [address], [place] [address] May, [facility] [address] [id number] [address] [place] [address], [place] [address] May, [facility] [address] [id number] [address] [place] [address], [place] [address] May, [facility] [address] [id number] [address] [place] [address], [place] [address] 08 May, 2012 [facility] [address] [id number] [address] [place] [address], [place] [address] May, [facility] [address] [id number] [address] [place] [address], [place] [address] May, [facility] [address] [id number] [address] [place] [address], [place] [address] May, [facility] [address] [id number] [address] [place] [address], [place] [address] May, [facility] [address] [id number] [address] [place] [address], [place] [address] Apr, [facility] [address] [id number] [address] [place] [address], [place] [address] Apr, [facility] [address] [id number] [address] [place] [address], [place] [address] Apr, [facility] [address] [id number] [address] [place] [address], [place] [address] Apr, [facility] [address] [id number] [address] [place] [address], [place] [address] Apr, [facility] [address] [id number] [address] [place] [address], [place] [address] Apr, [facility] [address] [id number] [address] [place] [address], [place] [address] Apr, [facility] [address] [id number] [address] [place] [address] Apr, [facility] [address] [id number] [address] [place] [address], [place] [address] Apr, [facility] [address] [id number] [address] [place] [address], [place] [address] Apr, [facility] [address] [id number] [address] [place] [address] Apr, [facility] [address] [id number] [address] [place] [address], [place] [address] Apr, [facility] [address] [id number] [address] [place] [address], [place] [address] 19 Mar, 2012 [facility] [address] [id number] [address] [place] [address], [place] [address] 18 Mar, 2012 [facility] [address] [id number] [address] [place] [address], [place] [address] 12 Mar, 2012 [facility] [address] [id number] [address] [place] [address], [place] [address] Mar, [facility] [address] [id number] [address] [place] [address], [place] [id number] Mar, [facility] [address] [id number] [address] [place] [address], [place] [id number] Mar, [facility] [address] [id number] [address] [place] [address], [place] [address] 04 Mar, 2012 [facility] [address] [id number] [address] [place] [address], [place] [address] 29 Feb, 2012 [facility] [address] [id number] [address] [place] [address], [place] [address] Jan, [facility] [address] [id number] [address] [place] [id number] Jan, [facility] [address] [id number] [address] [place] [id number] Jan, [facility] [address] [id number] [address] [place] [address], [place] [address] 17 Feb, 2012 [facility] [address] [id number] [address] [place] [address], [place] [address] Jan, [facility] [address] [id number] [address] [place] [address], [place] [address] Jan, [facility] [address] [id number] [address] [place] [address], [place] [address] Jan, [facility] [address] [id number] [address] [place] [address], [place] [address] Jan, [facility] [address] [id number] [address] [place] [address], [place] [address] Jan, [facility] [address] [id number] [address] [place] [address], [place] [address] Jan, [facility] [address] [id number] [address] [place] [address], [place] [address] Dec, [facility] [address] [id number] [address] [place] [address], [place] [address] Dec, [facility] [address] [id number] [address] [place] [address], [place] [address] Dec, [facility] [address] [id number] [address] [place] [address], [place] [address] Dec, [facility] [address] [id number] [address] [place] [address], [place] [address] Dec, [facility] [address] [id number] [address] [place] [address], [place] [address] Dec, [facility] [address] [id number] [address] [place] [address], [place] [address] Dec, [facility] [address] [id number] [address] [place] [address], [place] [address] 17 Jan, 2012 [facility] [address] [id number] [address] [place] [address], [place] [address] 16 Jan, 2012 [facility] [address] [id number] [address] [place] [address], [place] [address] Dec, [facility] [address] [id number] [address] [place] [address], [place] [address] Dec, [facility] [address] [id number] [address] [place] [address], [place] [address] Dec, [facility] [address] [id number] [address] [place] [address], [place] [address] 27 Dec, 2011 [facility] [address] [id number] [address] [place] [address], [place] [address] 27 Dec, 2011 [facility] [address] [id number] [address] [place] [address], [place] [address] 25 Dec, 2011 [facility] [address] [id number] [address] [place] [address], [place] [address] 18 Dec, 2011 [facility] [address] [id number] [address] [place] [address], [place] [address] 15 Dec, 2011 [facility] [address] [id number] [address] [place] [address], [place] [address] 06 Dec, 2011 [facility] [address] [id number] [address] [place] [address], [place] [address] 05 Dec, 2011 [facility] [address] [id number] [address] [place] [address], [place] [address] October, [facility] [address] [id number] [address] [place] [address], [place] [address] October, [facility] [address] [id number] [address] [place] [address], [place] [address] October, [facility] [address] [id number] [address] [place] [address], [place] [address] October, [facility] [address] [id number] [address] [place] [address], [place] [address] October, [facility] [address] [id number] [address] [place] [address], [place] [address] October, [facility] [address] [id number] [address] [place] [address], [place] [address] Oct, [facility] [address] [id number] [address] [place] [address], [place] [address] Oct, [facility] [address] [id number] [address] [place] [address], [place] [address] Oct, [facility] [address] [id number] [address] [place] [address], [place] [address] Oct, [facility] [address] [id number] [address] [place] [address], [place] [address] Oct, [facility] [address] [id number] [address] [place] [address], [place] [address] Oct, [facility] [address] [id number] [address] [place] [address], [place] [address] Oct, [facility] [address] [id number] [address] [place] [address], [place] [address] Aug, [facility] [address] [id number] [address] [place] [address], [place] [address] 29 Sep, 2011 [facility] [address] [id number] [address] [place] [address], [place] [address] Aug, [facility] [address] [id number] [address] [place] [address], [place] [address] Aug, [facility] [address] [id number] [address] [place] [address], [place] [address] Aug, [facility] [address] [id number] [address] [place] [address], [place] [address] Aug, [facility] [address] [id number] [address] [place] [address], [place] [address] Aug, [facility] [address] [id number] [address] [place] [address], [place] [address] Aug, [facility] [address] [id number] [address] [place] [address], [place] [address] Aug, [facility] [address] [id number] [address] [place] [address], [place] [address] Jul, [facility] [address] [id number] [address] [place] [address], [place] [address] Jul, [facility] [address] [id number] [address] [place] [address], [place] [address] Jul, [facility] [address] [id number] [address] [place] [address], [place] [address] Jul, [facility] [address] [id number] [address] [place] [address], [place] [address] Jun, [facility] [address] [id number] [address] [place] [address], [place] [address] Jun, [facility] [address] [id number] [address] [place] [address], [place] [address] May, [facility] [address] [id number] [address] [place] [address], [place] [address] May, [facility] [address] [id number] [address] [place] [address], [place] [address] May, [facility] [address] [id number] [address] [place] [address], [place] [address] May, [facility] [address] [id number] [address] [place] [address], [place] [address] May, [facility] [address] [id number] [address] [place] [address], [place] [address] Apr, [facility] [address] [id number] [address] [place] [address], [place] [address] Apr, [facility] [address] [id number] [address] [place] [address], [place] [address] Apr, [facility] [address] [id number] [address] [place] [address], [place] [address] Jan, [facility] [address] [id number] [address] [place] [address], [place] [address] Dec, [facility] [address] [id number] [address] [place] [address], [place] [address] October, [facility] [address] [id number] [address] [place] [address], [place] [address] Jun, [facility] [address] [id number] [address] [place] [address] Apr, [facility] [address] [facility] [place] [id number] [address] [place] [address] Apr, [facility] [address] [facility] [place] [id number] [address] [place] [address] Apr, [facility] [address] [facility] [place] [id number] [address] [place] [address] Jun, IMMUNIZATIONS No Known Immunizations SOCIAL HISTORY Never Assessed REASON FOR VISIT PLAN OF CARE VITAL SIGNS Height 69 in 2013-12-30 Weight 188.2 lbs 2013-12-30 Heart Rate 82 bpm 2013-12-30 Blood pressure systolic 135 mmHg 2013-12-30 Blood pressure diastolic 90 mmHg 2013-12-30 MEDICATIONS Unknown Medications RESULTS No Results PROCEDURES [...]
--- OUTSIDE RECORDS SUMMARY | 2020-01-25 12:33 | XMS REPORT ---
Author Author Ana Iraheta Organization [facility] Address [address] [place] [address] Care Team Providers Care Special Assemblies Supervisor Name Role Phone MELISA Iraheta Unavailable PROBLEMS Type Condition ICD9-CM Code QXS42-ME Code Onset Dates Condition S tatus SNOMED Code Problem Chronic hepatitis C without hepatic coma B18.2 Active 182721728 Problem Cannabis abuse F12.10 Active 76668 009 Problem Bipolar 1 disorder F31.9 Active 3 77818542 Problem Attention deficit hyperactivity disorder (ADHD), combi luciano type F90.2 Active 31254076 Problem Attention deficit R41.840 Active 76 479142 Problem Hot flashes due to menopause N95.1 A ctive 192630126 Problem H/O laminectomy Z98.89 Active 1616 73567 Problem Other chronic pain G89.29 Active 8 8440057 Problem Anxiety disorder, unspecified type F41.9 Active 283956824 Problem Bipolar disorder, in partial remission, most rec ent episode hypomanic F31.71 Active [id number] ALLERGIES No Information ENCOUNTERS Encounter Location Date Diagnosis [place] [address] [facility] [id number] [address] [place] [address] Apr, [place] [address] [facility] [id number] [address] [place] [address] Mar, Hot flashes due to menopause N95.1 ; Anxiety disorder, unspecified type F41.9 ; Low back pain M54.5 and Encounter for immunization Z23 [facility] [address] [facility] [id number] [address] [place] [address] Dec, Other chronic pain G89.29 an d Low back pain M54.5 [place] [address] [facility] [id number] [address] [place] [address] October, [place] [address] [id number] [address] [place] [address] October, [facility] [address] [facility] [id number] [address] [place] [address] October, [facility] [address] [facility] [id number] [address] [place] [address] October, Other chronic pain G89.29 an d Chronic hepatitis C without hepatic coma B18.2 [facility] [address] [facility] [id number] [address] [place] [address] Aug, Bipolar disorder, in partial remission, most recent episode hypomanic F31.71 ; Attention deficit hyperactivity disorder (ADHD), combined type F90.2 and Anxiety disorder, unspecified type F41.9 [facility] [address] [facility] [id number] [address] [place] [address] Aug, [facility] [address] [facility] [id number] [address] [place] [address] Aug, Bipolar disorder, in partial remission, most recent episode hypomanic F31.71 [facility] [address] [facility] [id number] [address] [place] [address] Aug, [facility] [address] [facility] [id number] [address] [place] [address] Aug, Bipolar disorder, in partial remission, most recent episode hypomanic F31.71 [facility] [address] [facility] [id number] [address] [place] [address] Aug, Bipolar disorder, in partial remission, most recent episode hypomanic F31.71 ; Attention deficit hyperactivity disorder (ADHD), combined type F90.2 and Anxiety disorder, unspecified type F41.9 [facility] [address] [facility] [id number] [address] [place] [address] Aug, Low back pain M54.5 and Pain in left wrist M25.532 [facility] [address] [facility] [id number] [address] [place] [address] Aug, [facility] [address] [id number] [address] [place] [address] Jun, [facility] [address] [id number] [address] [place] [address] Apr, Bipolar disorder, in partial remission, most recent episode hypomanic F31.71 [facility] [address] [id number] [address] [place] [address] Apr, [facility] [address] [id number] [address] [place] [address] Apr, Bipolar disorder, in partial remission, most recent episode hypomanic F31.71 ; Attention deficit hyperactivity disorder (ADHD), combined type F90.2 ; Anxiety disorder, unspecified type F41.9 and Other fdc (current) 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 Z79.899 [facility] [address] [id number] [address] [place] [address] Apr, Bipolar disorder, in partial remission, most recent episode hypomanic F31.71 [facility] [address] [id number] [address] [place] [address] Apr, Bipolar disorder, in partial remission, most recent episode hypomanic F31.71 [facility] [address] [id number] [address] [place] [address] Mar, [facility] [address] [id number] [address] [place] [address] Mar, Bipolar disorder, in partial remission, most recent episode hypomanic F31.71 ; Encounter for immunization Z23 and Low back pain M54.5 [facility] [address] [id number] [address] [place] [address] 17 Mar, 2018 Bipolar disorder, in partial remission, most recent episode hypomanic F31.71 [facility] [address] [id number] [address] [place] [address] 13 Mar, 2018 Bipolar disorder, in partial remission, most recent episode hypomanic F31.71 [facility] [address] [facility] [id number] [address] [place] [address] Jan, Bipolar disorder, in partial remission, most recent episode hypomanic F31.71 [facility] [address] [facility] [id number] [address] [place] [address] Jan, Bipolar disorder, in partial remission, most recent episode hypomanic F31.71 [facility] [address] [facility] [id number] [address] [place] [address] Dec, Bipolar disorder, in partial remission, most recent episode hypomanic F31.71 [facility] [address] [id number] [address] [place] [address] Dec, Bipolar disorder, in partial remission, most recent episode hypomanic F31.71 ; Attention deficit hyperactivity disorder (ADHD), combined type F90.2 ; Anxiety disorder, unspecified type F41.9 and Other watermaster (current) 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 Z79.899 [facility] [address] [facility] [id number] [address] [place] [address] Dec, Bipolar disorder, in partial remission, most recent episode hypomanic F31.71 [facility] [address] [facility] [id number] [address] [place] [address] Dec, Bipolar disorder, in partial remission, most recent episode hypomanic F31.71 [facility] [address] [facility] [id number] [address] [place] [address] October, Bipolar disorder, in partial remission, most recent episode hypomanic F31.71 [facility] [address] [facility] [id number] [address] [place] [address] October, [facility] [address] [facility] [id number] [address] [place] [address] October, [facility] [address] [facility] [id number] [address] [place] [address] Oct, Bipolar disorder, in partial remission, most recent episode hypomanic F31.71 ; Attention deficit hyperactivity disorder (ADHD), combined type F90.2 ; Anxiety disorder, unspecified type F41.9 and Encounter for drug screening Z02.83 [facility] [address] [facility] [id number] [address] [place] [address] Oct, Bipolar disorder, in partial remission, most recent episode hypomanic F31.71 [facility] [address] [id number] [address] [place] [address] Oct, Bipolar disorder, in partial remission, most recent episode hypomanic F31.71 [facility] [address] [facility] [id number] [address] [place] [address] Aug, Bipolar disorder, in partial remission, most recent episode hypomanic F31.71 [facility] [address] [facility] [id number] [address] [place] [address] Aug, Bipolar disorder, in partial remission, most recent episode hypomanic F31.71 [facility] [address] [facility] [id number] [address] [place] [address] Aug, Bipolar disorder, in partial remission, most recent episode hypomanic F31.71 [facility] [address] [id number] [address] [place] [address] Jul, Bipolar disorder, in partial remission, most recent episode hypomanic F31.71 ; Attention deficit hyperactivity disorder (ADHD), combined type F90.2 and Anxiety disorder, unspecified type F41.9 [facility] [address] [facility] [id number] [address] [place] [address] Jul, Bipolar disorder, in partial remission, most recent episode hypomanic F31.71 [facility] [address] [id number] [address] [place] [address] Jun, Bipolar disorder, in partial remission, most recent episode hypomanic F31.71 [facility] [address] [facility] [id number] [address] [place] [address] May, Bipolar disorder, in partial remission, most recent episode hypomanic F31.71 [facility] [address] [facility] [id number] [address] [place] [address] May, Bipolar disorder, in partial remission, most recent episode hypomanic F31.71 [facility] [address] [facility] [id number] [address] [place] [address] Apr, [facility] [address] [facility] [id number] [address] [place] [address] Apr, Bipolar disorder, in partial remission, most recent episode hypomanic F31.71 ; Attention deficit hyperactivity disorder (ADHD), combined type F90.2 ; Anxiety disorder, unspecified type F41.9 and Cannabis abuse F12.10 [facility] [address] [facility] [id number] [address] [place] [address] Apr, Attention deficit hyperactiv ity disorder (ADHD), combined type F90.2 [facility] [address] [facility] [id number] [address] [place] [address] Mar, Attention deficit hyperactiv ity disorder (ADHD), combined type F90.2 [facility] [address] [facility] [id number] [address] [place] [address] Mar, Anxiety disorder, unspecifie d type F41.9 [facility] [address] [facility] [id number] [address] [place] [address] Jan, Attention deficit hyperactiv ity disorder (ADHD), combined type F90.2 [facility] [address] [facility] [id number] [address] [place] [address] Jan, Anxiety disorder, unspecifie d type F41.9 [facility] [address] [facility] [id number] [address] [place] [address] Jan, Other chronic pain G89.29 ; Chronic hepatitis C without hepatic coma B18.2 and Bipolar 1 disorder F31.9 [facility] [address] [facility] [id number] [address] [place] [address] Dec, Attention deficit hyperactiv ity disorder (ADHD), combined type F90.2 [facility] [address] [facility] [id number] [address] [place] [address] Dec, Bipolar disorder, in partial remission, most recent episode hypomanic F31.71 ; Attention deficit hyperactivity disorder (ADHD), combined type F90.2 and Anxiety disorder, unspecified type F41.9 [facility] [address] [id number] [address] [place] [address] Dec, Bipolar disorder, in partial remission, most recent episode hypomanic F31.71 ; Attention deficit hyperactivity disorder (ADHD), combined type F90.2 and Anxiety disorder, unspecified type F41.9 [facility] [address] [id number] [address] [place] [address] Dec, Bipolar 1 disorder F31.9 and Attention deficit R41.840 [facility] [address] [facility] [id number] [address] [place] [address] Oct, Other chronic pain G89.29 ; Alopecia L65.9 and Screening, lipid Z13.220 [facility] [address] [facility] [id number] [address] [place] [address] Oct, [facility] [address] [facility] [id number] [address] [place] [address] Aug, [facility] [address] [facility] [id number] [address] [place] [address] Aug, Eustachian tube dysfunction, right H69.81 ; Vertigo R42 and Other chronic pain G89.29 [facility] [address] [facility] [id number] [address] [place] [address] Aug, [facility] [address] [id number] [address] [place] [address] Jun, [facility] [address] [facility] [id number] [address] [place] [address] Jun, Low back pain M54.5 and Othe r chronic pain G89.29 [facility] [address] [facility] [id number] [address] [place] [address] Jun, [facility] [address] [facility] [id number] [address] [place] [address] May, [facility] [address] [facility] [id number] [address] [place] [address] Jan, [facility] [address] [facility] [id number] [address] [place] [address] Dec, [facility] [address] [facility] [id number] [address] [place] [address] Dec, [facility] [address] [place] [id number] [address] [place] [address] Jun, [facility] [address] [place] [id number] [place] [address] Apr, Eustachian tube dysfunction, unspecified laterality H69.80 ; Hot flashes N95.1 and Encounter for immunization Z23 [facility] [address] [id number] Jan, [facility] [address] [place] [id number] [place] [address] Jan, [facility] [address] [address] Jan, [facility] [address] [place] [id number] [place] [address] Jan, [facility] [address] [place] [id number] [address] [place] [address] Jan, Encounter to establish care V65.8 ; Bipolar 1 disorder 296.7 ; Abdominal pain 789.00 ; Constipation 564.00 ; Hard of hearing 389.9 and Drug abuse 305.90 [facility] [address] [place] [id number] [address] [place] [address] Dec, [facility] [address] [place] [id number] [address] [place] [address] October, [facility] [address] [place] [id number] [address] [place] [address] October, [facility] [address] [id number] [address] [place] [address], [place] [address] 30 Oct, 2014 [facility] [address] [id number] [address] [place] [address], [place] [address] 14 Oct, 2014 [facility] [address] [id number] [address] [place] [address], [place] [address] Oct, [facility] [address] [id number] [address] [place] [address], [place] [address] Aug, [facility] [address] [id number] [address] [place] [address], [place] [address] Aug, [facility] [address] [id number] [address] [place] [address], [place] [address] Aug, [facility] [address] [id number] [address] [place] [address], [place] [address] Aug, [facility] [address] [id number] [address] [place] [address], [place] [address] Aug, 2014 [facility] [address] [id number] [address] [place] [address], [place] [address] Aug, [facility] [address] [id number] [address] [place] [address], [place] [address] Aug, [facility] [address] [id number] [address] [place] [address], [place] [address] Aug, 2014 [facility] [address] [id number] [address] [place] [address], [place] [address] Aug, 2014 [facility] [address] [id number] [address] [place] [address], [place] [address] Aug, 2014 [facility] [address] [id number] [address] [place] [address], [place] [address] Aug, 2014 [facility] [address] [id number] [address] [place] [address], [place] [address] 05 Aug, 2014 [facility] [address] [id number] [address] [place] [address], [place] [address] Aug, [facility] [address] [id number] [address] [place] [address], [place] [address] Aug, [facility] [address] [id number] [address] [place] [address], [place] [address] Aug, [facility] [address] [id number] [address] [place] [address], [place] [address] Jul, [facility] [address] [id number] [address] [place] [address], [place] [address] Jul, [facility] [address] [id number] [address] [place] [address], [place] [address] Jul, [facility] [address] [id number] [address] [place] [address], [place] [address] Jul, [facility] [address] [id number] [address] [place] [address], [place] [address] Jul, [facility] [address] [id number] [address] [place] [address], [place] [address] Jul, [facility] [address] [id number] [address] [place] [address], [place] [address] Jul, [facility] [address] [id number] [address] [place] [address], [place] [address] Jul, [facility] [address] [id number] [address] [place] [address], [place] [address] Jun, [facility] [address] [id number] [address] [place] [address], [place] [address] Jun, [facility] [address] [id number] [address] [place] [address], [place] [address] Jun, [facility] [address] [id number] [address] [place] [address], [place] [address] Jun, [facility] [address] [id number] [address] [place] [address], [place] [address] 18 Jun, 2014 [facility] [address] [id number] [address] [place] [address], [place] [address] 15 Jun, 2014 [facility] [address] [id number] [address] [place] [address], [place] [address] 15 Jun, 2014 [facility] [address] [id number] [address] [place] [address], [place] [address] Jun, [facility] [address] [id number] [address] [place] [address], [place] [address] Jun, [facility] [address] [id number] [address] [place] [address], [place] [address] Jun, [facility] [address] [id number] [address] [place] [address], [place] [address] Jun, [facility] [address] [id number] [address] [place] [address], [place] [address] May, [facility] [address] [id number] [address] [place] [address], [place] [address] May, [facility] [address] [id number] [address] [place] [address], [place] [address] May, [facility] [address] [id number] [address] [place] [address], [place] [address] May, [facility] [address] [id number] [address] [place] [address], [place] [address] May, [facility] [address] [id number] [address] [place] [address], [place] [address] May, [facility] [address] [id number] [address] [place] [address], [place] [address] May, [facility] [address] [id number] [address] [place] [address], [place] [address] Apr, [facility] [address] [id number] [address] [place] [address], [place] [address] Apr, [facility] [address] [id number] [address] [place] [address], [place] [address] Apr, [facility] [address] [id number] [address] [place] [address], [place] [address] Apr, [facility] [address] [id number] [address] [place] [address], [place] [address] Apr, [facility] [address] [id number] [address] [place] [address], [place] [address] Apr, [facility] [address] [id number] [address] [place] [address], [place] [address] Mar, [facility] [address] [id number] [address] [place] [address], [place] [address] Mar, [facility] [address] [id number] [address] [place] [address], [place] [address] Mar, [facility] [address] [id number] [address] [place] [address], [place] [address] Mar, [facility] [address] [id number] [address] [place] [address], [place] [address] Mar, [facility] [address] [id number] [address] [place] [address], [place] [id number] Mar, [facility] [address] [id number] [address] [place] [address], [place] [id number] Jan, [facility] [address] [id number] [address] [place] [address], [place] [id number] Jan, [facility] [address] [id number] [address] [place] [address], [place] [id number] Jan, [facility] [address] [id number] [address] [place] [address], [place] [id number] Jan, [facility] [address] [id number] [address] [place] [address], [place] [id number] Dec, [facility] [address] [id number] [address] [place] [address], [place] [id number] Dec, [facility] [address] [id number] [address] [place] [address], [place] [address] Dec, [facility] [address] [id number] [address] [place] [address], [place] [id number] Dec, [facility] [address] [id number] [address] [place] [address], [place] [id number] Dec, [facility] [address] [id number] [address] [place] [address], [place] [id number] Dec, [facility] [address] [id number] [address] [place] [address], [place] [id number] Dec, [facility] [address] [id number] [address] [place] [address], [place] [id number] Dec, [facility] [address] [id number] [address] [place] [address], [place] [id number] Dec, [facility] [address] [id number] [address] [place] [address], [place] [id number] Dec, [facility] [address] [id number] [address] [place] [address], [place] [address] Dec, [facility] [address] [id number] [address] [place] [address], [place] [id number] Dec, [facility] [address] [id number] [address] [place] [address], [place] [id number] October, [facility] [address] [id number] [address] [place] [address], [place] [id number] October, [facility] [address] [id number] [address] [place] [address], [place] [id number] October, [facility] [address] [id number] [address] [place] [address], [place] [id number] October, [facility] [address] [id number] [address] [place] [address], [place] [address] October, [facility] [address] [id number] [address] [place] [address], [place] [address] October, [facility] [address] [id number] [address] [place] [address], [place] [address] Oct, [facility] [address] [id number] [address] [place] [address], [place] [address] Oct, [facility] [address] [id number] [address] [place] [address], [place] [address] Oct, [facility] [address] [id number] [address] [place] [address], [place] [address] Oct, [facility] [address] [id number] [address] [place] [address], [place] [address] Oct, [facility] [address] [id number] [address] [place] [address], [place] [address] Oct, [facility] [address] [id number] [address] [place] [address], [place] [address] Oct, [facility] [address] [id number] [address] [place] [address], [place] [address] Oct, [facility] [address] [id number] [address] [place] [address], [place] [address] Oct, [facility] [address] [id number] [address] [place] [address], [place] [address] Oct, [facility] [address] [id number] [address] [place] [address], [place] [address] Oct, [facility] [address] [id number] [address] [place] [address], [place] [address] Oct, [facility] [address] [id number] [address] [place] [address], [place] [address] Aug, [facility] [address] [id number] [address] [place] [address], [place] [address] Aug, [facility] [address] [id number] [address] [place] [address], [place] [address] Aug, [facility] [address] [id number] [address] [place] [address], [place] [address] 11 Aug, 2013 [facility] [address] [id number] [address] [place] [address], [place] [address] 05 Aug, 2013 [facility] [address] [id number] [address] [place] [address], [place] [address] 05 Aug, 2013 [facility] [address] [id number] [address] [place] [address], [place] [address] 04 Aug, 2013 [facility] [address] [id number] [address] [place] [address], [place] [address] Aug, [facility] [address] [id number] [address] [place] [address], [place] [address] Aug, [facility] [address] [id number] [address] [place] [address], [place] [address] 24 Aug, 2013 [facility] [address] [id number] [address] [place] [address], [place] [address] 24 Aug, 2013 [facility] [address] [id number] [address] [place] [address], [place] [address] Aug, [facility] [address] [id number] [address] [place] [address], [place] [address] Aug, [facility] [address] [id number] [address] [place] [address], [place] [address] 20 Aug, 2013 [facility] [address] [id number] [address] [place] [address], [place] [address] 14 Aug, 2013 [facility] [address] [id number] [address] [place] [address], [place] [address] Aug, [facility] [address] [id number] [address] [place] [address], [place] [address] 14 Aug, 2013 [facility] [address] [id number] [address] [place] [address], [place] [address] 14 Aug, 2013 [facility] [address] [id number] [address] [place] [address], [place] [address] 07 Aug, 2013 [facility] [address] [id number] [address] [place] [address], [place] [address] 07 Aug, 2013 [facility] [address] [id number] [address] [place] [address], [place] [address] 06 Aug, 2013 [facility] [address] [id number] [address] [place] [address], [place] [address] Aug, [facility] [address] [id number] [address] [place] [address], [place] [address] Aug, [facility] [address] [id number] [address] [place] [address], [place] [address] Aug, [facility] [address] [id number] [address] [place] [address], [place] [address] Aug, [facility] [address] [id number] [address] [place] [address], [place] [address] Jul, [facility] [address] [id number] [address] [place] [address], [place] [address] Jul, [facility] [address] [id number] [address] [place] [address], [place] [address] Jul, [facility] [address] [id number] [address] [place] [address], [place] [address] Jul, [facility] [address] [id number] [address] [place] [address], [place] [address] Jul, [facility] [address] [id number] [address] [place] [address], [place] [address] Jul, [facility] [address] [id number] [address] [place] [address], [place] [address] Jul, [facility] [address] [id number] [address] [place] [address], [place] [address] Jul, [facility] [address] [id number] [address] [place] [address], [place] [address] Jul, [facility] [address] [id number] [address] [place] [address], [place] [address] Jul, [facility] [address] [id number] [address] [place] [address], [place] [address] Jul, [facility] [address] [id number] [address] [place] [address], [place] [address] Jul, [facility] [address] [id number] [address] [place] [address], [place] [address] Jul, [facility] [address] [id number] [address] [place] [address], [place] [address] Jul, [facility] [address] [id number] [address] [place] [address], [place] [address] Jul, [facility] [address] [id number] [address] [place] [address], [place] [address] Jul, [facility] [address] [id number] [address] [place] [address], [place] [address] Jul, [facility] [address] [id number] [address] [place] [address], [place] [address] Jul, [facility] [address] [id number] [address] [place] [address], [place] [address] Jul, [facility] [address] [id number] [address] [place] [address], [place] [address] Jul, [facility] [address] [id number] [address] [place] [address], [place] [address] Jun, [facility] [address] [id number] [address] [place] [address], [place] [address] Jun, [facility] [address] [id number] [address] [place] [address], [place] [address] Jun, [facility] [address] [id number] [address] [place] [address], [place] [address] Jun, [facility] [address] [id number] [address] [place] [address], [place] [address] Jun, [facility] [address] [id number] [address] [place] [address], [place] [address] Jun, [facility] [address] [id number] [address] [place] [address], [place] [address] Jun, [facility] [address] [id number] [address] [place] [address], [place] [address] Jun, [facility] [address] [id number] [address] [place] [address], [place] [address] Jun, [facility] [address] [id number] [address] [place] [address], [place] [address] Jun, [facility] [address] [id number] [address] [place] [address], [place] [address] Jun, [facility] [address] [id number] [address] [place] [address], [place] [address] Jun, [facility] [address] [id number] [address] [place] [address], [place] [address] Jun, [facility] [address] [id number] [address] [place] [address], [place] [address] Jun, [facility] [address] [id number] [address] [place] [address], [place] [address] Jun, [facility] [address] [id number] [address] [place] [address], [place] [address] 18 Jun, 2013 [facility] [address] [id number] [address] [place] [address], [place] [address] 18 Jun, 2013 [facility] [address] [id number] [address] [place] [address], [place] [address] 17 Jun, 2013 [facility] [address] [id number] [address] [place] [address], [place] [address] 17 Jun, 2013 [facility] [address] [id number] [address] [place] [address], [place] [address] 13 Jun, 2013 [facility] [address] [id number] [address] [place] [address], [place] [address] Jun, [facility] [address] [id number] [address] [place] [address], [place] [address] Jun, [facility] [address] [id number] [address] [place] [address], [place] [address] Jun, [facility] [address] [id number] [address] [place] [address], [place] [address] Jun, [facility] [address] [id number] [address] [place] [address], [place] [address] Jun, [facility] [address] [id number] [address] [place] [address], [place] [address] Jun, [facility] [address] [id number] [address] [place] [address], [place] [address] Jun, [facility] [address] [id number] [address] [place] [address], [place] [address] May, [facility] [address] [id number] [address] [place] [address], [place] [address] May, [facility] [address] [id number] [address] [place] [address], [place] [id number] May, [facility] [address] [id number] [address] [place] [address], [place] [address] May, [facility] [address] [id number] [address] [place] [address], [place] [address] May, [facility] [address] [id number] [address] [place] [address], [place] [address] May, [facility] [address] [id number] [address] [place] [address], [place] [address] Apr, [facility] [address] [id number] [address] [place] [address], [place] [address] Apr, [facility] [address] [id number] [address] [place] [address], [place] [address] Apr, [facility] [address] [id number] [address] [place] [address], [place] [address] 30 Apr, 2013 [facility] [address] [id number] [address] [place] [address], [place] [address] Apr, [facility] [address] [id number] [address] [place] [address], [place] [address] 15 Apr, 2013 [facility] [address] [id number] [address] [place] [address], [place] [address] 15 Apr, 2013 [facility] [address] [id number] [address] [place] [address], [place] [address] Apr, [facility] [address] [id number] [address] [place] [address], [place] [address] 26 Mar, 2013 [facility] [address] [id number] [address] [place] [address], [place] [address] 24 Mar, 2013 [facility] [address] [id number] [address] [place] [address], [place] [address] 17 Mar, 2013 [facility] [address] [id number] [address] [place] [address], [place] [address] 17 Mar, 2013 [facility] [address] [id number] [address] [place] [address], [place] [address] 11 Mar, 2013 [facility] [address] [id number] [address] [place] [address], [place] [address] 10 Mar, 2013 [facility] [address] [id number] [address] [place] [address] 05 Mar, 2013 [facility] [address] [id number] [address] [place] [address], [place] [address] 04 Mar, 2013 [facility] [address] [id number] [address] [place] [address], [place] [address] 20 Jan, 2013 [facility] [address] [id number] [address] [place] [address], [place] [address] Jan, [facility] [address] [id number] [address] [place] [address], [place] [address] 14 Jan, 2013 [facility] [address] [id number] [address] [place] [address], [place] [address] 12 Jan, 2013 [facility] [address] [id number] [address] [place] [address], [place] [address] Jan, [facility] [address] [id number] [address] [place] [address], [place] [address] 05 Jan, 2013 [facility] [address] [id number] [address] [place] [address], [place] [address] 31 Dec, 2012 [facility] [address] [id number] [address] [place] [address], [place] [address] 24 Dec, 2012 [facility] [address] [id number] [address] [place] [address], [place] [address] Dec, [facility] [address] [id number] [address] [place] [address], [place] [address] Dec, [facility] [address] [id number] [address] [place] [address], [place] [address] 18 Dec, 2012 [facility] [address] [id number] [address] [place] [address], [place] [address] 17 Dec, 2012 [facility] [address] [id number] [address] [place] [address], [place] [address] 16 Dec, 2012 [facility] [address] [id number] [address] [place] [address], [place] [address] 16 Dec, 2012 [facility] [address] [id number] [address] [place] [address], [place] [address] 15 Dec, 2012 [facility] [address] [id number] [address] [place] [address], [place] [address] Dec, [facility] [address] [id number] [address] [place] [address], [place] [address] Dec, [facility] [address] [id number] [address] [place] [address], [place] [address] Dec, [facility] [address] [id number] [address] [place] [address], [place] [address] Dec, [facility] [address] [id number] [address] [place] [address], [place] [address] Dec, [facility] [address] [id number] [address] [place] [address], [place] [address] Dec, [facility] [address] [id number] [address] [place] [address], [place] [address] Dec, [facility] [address] [id number] [address] [place] [address], [place] [address] October, [facility] [address] [id number] [address] [place] [address], [place] [address] October, [facility] [address] [id number] [address] [place] [address], [place] [address] October, [facility] [address] [id number] [address] [place] [address], [place] [address] October, [facility] [address] [id number] [address] [place] [address], [place] [address] October, [facility] [address] [id number] [address] [place] [address], [place] [address] October, [facility] [address] [id number] [address] [place] [address], [place] [address] October, [facility] [address] [id number] [address] [place] [address], [place] [address] Oct, [facility] [address] [id number] [address] [place] [address], [place] [address] Oct, [facility] [address] [id number] [address] [place] [address], [place] [address] Oct, [facility] [address] [id number] [address] [place] [address], [place] [address] Oct, [facility] [address] [id number] [address] [place] [address], [place] [address] 19 Oct, 2012 [facility] [address] [id number] [address] [place] [address], [place] [address] 18 Oct, 2012 [facility] [address] [id number] [address] [place] [address], [place] [address] 17 Oct, 2012 [facility] [address] [id number] [address] [place] [address], [place] [address] 15 Oct, 2012 [facility] [address] [id number] [address] [place] [address], [place] [address] 12 Oct, 2012 [facility] [address] [id number] [address] [place] [address], [place] [address] Oct, [facility] [address] [id number] [address] [place] [address], [place] [address] Oct, [facility] [address] [id number] [address] [place] [address], [place] [address] Oct, [facility] [address] [id number] [address] [place] [address], [place] [address] Aug, [facility] [address] [id number] [address] [place] [address], [place] [address] Aug, [facility] [address] [id number] [address] [place] [address], [place] [address] Aug, [facility] [address] [id number] [address] [place] [address], [place] [address] Aug, [facility] [address] [id number] [address] [place] [address], [place] [address] 05 Aug, 2012 [facility] [address] [id number] [address] [place] [address], [place] [address] 05 Aug, 2012 [facility] [address] [id number] [address] [place] [address], [place] [id number] 20 Aug, 2012 [facility] [address] [id number] [address] [place] [address], [place] [id number] 14 Aug, 2012 [facility] [address] [id number] [address] [place] [address], [place] [id number] 12 Aug, 2012 [facility] [address] [id number] [address] [place] [address], [place] [id number] 11 Aug, 2012 [facility] [address] [id number] [address] [place] [address], [place] [id number] 29 Jul, 2012 [facility] [address] [id number] [address] [place] [address], [place] [id number] 15 Jul, 2012 [facility] [address] [id number] [address] [place] [address], [place] [id number] 08 Jul, 2012 [facility] [address] [id number] [address] [place] [address], [place] [id number] 20 Jun, 2012 [facility] [address] [id number] [address] [place] [address], [place] [id number] 18 Jun, 2012 [facility] [address] [id number] [address] [place] [address], [place] [id number] 18 Jun, 2012 [facility] [address] [id number] [address] [place] [address], [place] [id number] 18 Jun, 2012 [facility] [address] [id number] [address] [place] [address], [place] [id number] 18 Jun, 2012 [facility] [address] [id number] [address] [place] [address], [place] [id number] 14 Jun, 2012 [facility] [address] [id number] [address] [place] [address], [place] [id number] 14 Jun, 2012 [facility] [address] [id number] [address] [place] [address], [place] [id number] 13 Jun, 2012 [facility] [address] [id number] [address] [place] [address], [place] [id number] 13 Jun, 2012 [facility] [address] [id number] [address] [place] [address], [place] [id number] 11 Jun, 2012 [facility] [address] [id number] [address] [place] [address], [place] [id number] Jun, [facility] [address] [id number] [address] [place] [address], [place] [id number] Jun, [facility] [address] [id number] [address] [place] [address], [place] [id number] Jun, [facility] [address] [id number] [address] [place] [address], [place] [id number] Jun, [facility] [address] [id number] [address] [place] [address], [place] [address] Jun, [facility] [address] [id number] [address] [place] [address], [place] [id number] Jun, [facility] [address] [id number] [address] [place] [address], [place] [address] Jun, [facility] [address] [id number] [address] [place] [address], [place] [id number] Jun, [facility] [address] [id number] [address] [place] [address], [place] [address] Jun, [facility] [address] [id number] [address] [place] [address], [place] [id number] Jun, [facility] [address] [id number] [address] [place] [address], [place] [id number] Jun, [facility] [address] [id number] [address] [place] [address], [place] [id number] Jun, [facility] [address] [id number] [address] [place] [address], [place] [id number] Jun, [facility] [address] [id number] [address] [place] [address], [place] [address] May, [facility] [address] [id number] [address] [place] [address], [place] [id number] May, [facility] [address] [id number] [address] [place] [address], [place] [id number] May, [facility] [address] [id number] [address] [place] [address], [place] [id number] 08 May, 2012 [facility] [address] [id number] [address] [place] [address], [place] [address] May, [facility] [address] [id number] [address] [place] [address], [place] [address] May, [facility] [address] [id number] [address] [place] [address], [place] [id number] May, [facility] [address] [id number] [address] [place] [address], [place] [address] May, [facility] [address] [id number] [address] [place] [address], [place] [id number] Apr, [facility] [address] [id number] [address] [place] [address], [place] [address] Apr, [facility] [address] [id number] [address] [place] [address], [place] [address] Apr, [facility] [address] [id number] [address] [place] [address], [place] [address] Apr, [facility] [address] [id number] [address] [place] [address], [place] [address] Apr, [facility] [address] [id number] [address] [place] [address], [place] [address] Apr, [facility] [address] [id number] [address] [place] [address], [place] [address] Apr, [facility] [address] [id number] [place] [id number] Apr, [facility] [address] [id number] [address] [place] [address], [place] [id number] Apr, [facility] [address] [id number] [address] [place] [address], [place] [address] Apr, [facility] [address] [id number] [address] [place] [id number] Apr, [facility] [address] [id number] [address] [place] [address], [place] [address] Apr, [facility] [address] [id number] [address] [place] [address], [place] [address] 19 Mar, 2012 [facility] [address] [id number] [address] [place] [address], [place] [id number] 18 Mar, 2012 [facility] [address] [id number] [address] [place] [address], [place] [address] 12 Mar, 2012 [facility] [address] [id number] [address] [place] [address], [place] [address] Mar, [facility] [address] [id number] [address] [place] [address], [place] [id number] Mar, [facility] [address] [id number] [address] [place] [address], [place] [id number] Mar, [facility] [address] [id number] [address] [place] [address], [place] [address] 04 Mar, 2012 [facility] [address] [id number] [address] [place] [address], [place] [id number] 29 Feb, 2012 [facility] [address] [id number] [address] [place] [address], [place] [address] Jan, [facility] [address] [id number] [address] [place] [id number] Jan, [facility] [address] [id number] [address] [place] [id number] Jan, [facility] [address] [id number] [address] [place] [address], [place] [id number] 17 Feb, 2012 [facility] [address] [id number] [address] [place] [address], [place] [address] Jan, [facility] [address] [id number] [address] [place] [address], [place] [address] Jan, [facility] [address] [id number] [address] [place] [address], [place] [address] Jan, [facility] [address] [id number] [address] [place] [address], [place] [id number] Jan, [facility] [address] [id number] [address] [place] [address], [place] [address] Jan, [facility] [address] [id number] [address] [place] [address], [place] [address] Jan, [facility] [address] [id number] [address] [place] [address], [place] [address] Dec, [facility] [address] [id number] [address] [place] [address], [place] [address] Dec, [facility] [address] [id number] [address] [place] [address], [place] [address] Dec, [facility] [address] [id number] [address] [place] [address], [place] [address] Dec, [facility] [address] [id number] [address] [place] [address], [place] [address] Dec, [facility] [address] [id number] [address] [place] [address], [place] [address] Dec, [facility] [address] [id number] [address] [place] [address], [place] [address] Dec, [facility] [address] [id number] [address] [place] [address], [place] [address] 17 Jan, 2012 [facility] [address] [id number] [address] [place] [address], [place] [id number] 16 Jan, 2012 [facility] [address] [id number] [address] [place] [address], [place] [address] Dec, [facility] [address] [id number] [address] [place] [address], [place] [address] Dec, [facility] [address] [id number] [address] [place] [address], [place] [address] Dec, [facility] [address] [id number] [address] [place] [address], [place] [id number] 27 Dec, 2011 [facility] [address] [id number] [address] [place] [address], [place] [address] 27 Dec, 2011 [facility] [address] [id number] [address] [place] [address], [place] [id number] 25 Dec, 2011 [facility] [address] [id number] [address] [place] [address], [place] [id number] 18 Dec, 2011 [facility] [address] [id number] [address] [place] [address], [place] [id number] 15 Dec, 2011 [facility] [address] [id number] [address] [place] [address], [place] [address] 06 Dec, 2011 [facility] [address] [id number] [address] [place] [address], [place] [id number] 05 Dec, 2011 [facility] [address] [id number] [address] [place] [address], [place] [address] October, [facility] [address] [id number] [address] [place] [address], [place] [address] October, [facility] [address] [id number] [address] [place] [address], [place] [address] October, [facility] [address] [id number] [address] [place] [address], [place] [address] October, [facility] [address] [id number] [address] [place] [address], [place] [address] October, [facility] [address] [id number] [address] [place] [address], [place] [address] October, [facility] [address] [id number] [address] [place] [address], [place] [address] Oct, [facility] [address] [id number] [address] [place] [address], [place] [address] Oct, [facility] [address] [id number] [address] [place] [address], [place] [address] Oct, [facility] [address] [id number] [address] [place] [address], [place] [address] Oct, [facility] [address] [id number] [address] [place] [address], [place] [address] Oct, [facility] [address] [id number] [address] [place] [address], [place] [address] Oct, [facility] [address] [id number] [address] [place] [address], [place] [address] Oct, [facility] [address] [id number] [address] [place] [address], [place] [address] Aug, [facility] [address] [id number] [address] [place] [address], [place] [id number] 29 Sep, 2011 [facility] [address] [id number] [address] [place] [address], [place] [address] Aug, [facility] [address] [id number] [address] [place] [address], [place] [address] Aug, [facility] [address] [id number] [address] [place] [address], [place] [address] Aug, [facility] [address] [id number] [address] [place] [address], [place] [address] Aug, [facility] [address] [id number] [address] [place] [address], [place] [address] Aug, [facility] [address] [id number] [address] [place] [address], [place] [address] Aug, [facility] [address] [id number] [address] [place] [address], [place] [address] Aug, [facility] [address] [id number] [address] [place] [address], [place] [address] Jul, [facility] [address] [id number] [address] [place] [address], [place] [address] Jul, [facility] [address] [id number] [address] [place] [address], [place] [address] Jul, [facility] [address] [id number] [address] [place] [address], [place] [address] Jul, [facility] [address] [id number] [address] [place] [address], [place] [address] Jun, [facility] [address] [id number] [address] [place] [address], [place] [address] Jun, [facility] [address] [id number] [address] [place] [address], [place] [address] May, [facility] [address] [id number] [address] [place] [address], [place] [address] May, [facility] [address] [id number] [address] [place] [address], [place] [address] May, [facility] [address] [id number] [address] [place] [address], [place] [address] May, [facility] [address] [id number] [address] [place] [address], [place] [address] May, [facility] [address] [id number] [address] [place] [address], [place] [address] Apr, [facility] [address] [id number] [address] [place] [address], [place] [address] Apr, [facility] [address] [id number] [address] [place] [address], [place] [address] Apr, [facility] [address] [id number] [address] [place] [address], [place] [address] Jan, [facility] [address] [id number] [address] [place] [address], [place] [address] Dec, [facility] [address] [id number] [address] [place] [address], [place] [address] October, [facility] [address] [id number] [address] [place] [address], [place] [address] Jun, [facility] [address] [id number] [address] [place] [id number] Apr, [facility] [address] [facility] [id number] [address] [place] [id number] Apr, [facility] [address] [facility] [id number] [address] [place] [id number] Apr, [facility] [address] [facility] [id number] [address] [place] [id number] Jun, IMMUNIZATIONS No Known Immunizations SOCIAL HISTORY [...]
--- OUTSIDE RECORDS SUMMARY | 2020-01-25 12:34 | XMS REPORT ---
Author Author Ana Iraheta Organization [facility] Address [address] [place] [address] Care Team Providers Care Order Manager Name Role Phone MELISA Iraheta Unavailable PROBLEMS Type Condition ICD9-CM Code CEN88-TD Code Onset Dates Condition S tatus SNOMED Code Problem Attention deficit R41.840 Active 76 245987 Problem Chronic hepatitis C without hepatic coma B18.2 Active 711197565 Problem Cannabis abuse F12.10 Active 28058 009 Problem Bipolar disorder, in partial remission, most rec ent episode hypomanic F31.71 Active 017803530 Problem Attention deficit hyperactivity disorder (ADHD), combi luciano type F90.2 Active 50115980 Problem Bipolar 1 disorder F31.9 Active 3 54181274 Problem H/O laminectomy Z98.89 Active 1616 32708 Problem Other chronic pain G89.29 Active 8 4472965 Problem Anxiety disorder, unspecified type F41.9 Active 423869503 ALLERGIES No Information ENCOUNTERS Encounter Location Date Diagnosis [facility] [address] [facility] [id number] [address] [place] [phone] Mar, [facility] [address] [facility] [id number] [address] [place] [phone] Dec, Other chronic pain G89.29 an d Low back pain M54.5 [facility] [address] [facility] [id number] [address] [place] [phone] October, [facility] [address] [facility] [id number] [address] [place] [phone] October, [facility] [address] [facility] [id number] [address] [place] [phone] October, [facility] [address] [facility] [id number] [address] [place] [phone] October, Other chronic pain G89.29 an d Chronic hepatitis C without hepatic coma B18.2 [facility] [address] [id number] [address] [place] [phone] Aug, Bipolar disorder, in partial remission, most recent episode hypomanic F31.71 ; Attention deficit hyperactivity disorder (ADHD), combined type F90.2 and Anxiety disorder, unspecified type F41.9 [facility] [address] [id number] [address] [place] [phone] Aug, [facility] [address] [id number] [address] [place] [phone] Aug, Bipolar disorder, in partial remission, most recent episode hypomanic F31.71 [facility] [address] [id number] [address] [place] [id number] Aug, [facility] [address] [id number] [address] [place] [phone] Aug, Bipolar disorder, in partial remission, most recent episode hypomanic F31.71 [facility] [address] [id number] [address] [place] [phone] Aug, Bipolar disorder, in partial remission, most recent episode hypomanic F31.71 ; Attention deficit hyperactivity disorder (ADHD), combined type F90.2 and Anxiety disorder, unspecified type F41.9 [facility] [address] [id number] [address] [place] [phone] Aug, Low back pain M54.5 and Pain in left wrist M25.532 [facility] [address] [id number] [address] [place] [phone] Aug, [facility] [address] [facility] [id number] [address] [place] [phone] Jun, [facility] [address] [id number] [address] [place] [phone] Apr, Bipolar disorder, in partial remission, most recent episode hypomanic F31.71 [facility] [address] [id number] [address] [place] [phone] Apr, [facility] [address] [facility] [id number] [address] [place] [address] Apr, Bipolar disorder, in partial remission, most recent episode hypomanic F31.71 ; Attention deficit hyperactivity disorder (ADHD), combined type F90.2 ; Anxiety disorder, unspecified type F41.9 and 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 [facility] [address] [id number] [address] [place] [phone] Apr, Bipolar disorder, in partial remission, most recent episode hypomanic F31.71 [facility] [address] [facility] [id number] [address] [place] [phone] Apr, Bipolar disorder, in partial remission, most recent episode hypomanic F31.71 [facility] [address] [facility] [id number] [address] [place] [phone] Mar, [place] [id number] [facility] [id number] [address] [place] [address] Mar, Bipolar disorder, in partial remission, most recent episode hypomanic F31.71 ; Encounter for immunization Z23 and Low back pain M54.5 [facility] [address] [id number] [address] [place] [phone] 17 Mar, 2018 Bipolar disorder, in partial remission, most recent episode hypomanic F31.71 [facility] [address] [facility] [id number] [address] [place] [phone] Mar, Bipolar disorder, in partial remission, most recent episode hypomanic F31.71 [facility] [address] [facility] [id number] [address] [place] [phone] Jan, Bipolar disorder, in partial remission, most recent episode hypomanic F31.71 [facility] [address] [facility] [id number] [address] [place] [phone] Jan, Bipolar disorder, in partial remission, most recent episode hypomanic F31.71 [facility] [address] [id number] [address] [place] [phone] Dec, Bipolar disorder, in partial remission, most recent episode hypomanic F31.71 [facility] [address] [id number] [address] [place] [address] Dec, Bipolar disorder, in partial remission, most recent episode hypomanic F31.71 ; Attention deficit hyperactivity disorder (ADHD), combined type F90.2 ; Anxiety disorder, unspecified type F41.9 and Other group home (current) 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 Z79.899 [facility] [address] [id number] [address] [place] [phone] Dec, Bipolar disorder, in partial remission, most recent episode hypomanic F31.71 [facility] [address] [id number] [address] [place] [phone] Dec, Bipolar disorder, in partial remission, most recent episode hypomanic F31.71 [facility] [address] [id number] [address] [place] [phone] October, Bipolar disorder, in partial remission, most recent episode hypomanic F31.71 [facility] [address] [id number] [address] [place] [phone] October, [facility] [address] [facility] [id number] [address] [place] [phone] October, [facility] [address] [facility] [id number] [address] [place] [phone] Oct, Bipolar disorder, in partial remission, most recent episode hypomanic F31.71 ; Attention deficit hyperactivity disorder (ADHD), combined type F90.2 ; Anxiety disorder, unspecified type F41.9 and Encounter for drug screening Z02.83 [facility] [address] [id number] [address] [place] [phone] Oct, Bipolar disorder, in partial remission, most recent episode hypomanic F31.71 [facility] [address] [facility] [id number] [address] [place] [phone] Oct, Bipolar disorder, in partial remission, most recent episode hypomanic F31.71 [facility] [address] [id number] [address] [place] [phone] Aug, Bipolar disorder, in partial remission, most recent episode hypomanic F31.71 [facility] [address] [id number] [address] [place] [phone] Aug, Bipolar disorder, in partial remission, most recent episode hypomanic F31.71 [facility] [address] [id number] [address] [place] [phone] Aug, Bipolar disorder, in partial remission, most recent episode hypomanic F31.71 [facility] [address] [facility] [id number] [address] [place] [phone] Jul, Bipolar disorder, in partial remission, most recent episode hypomanic F31.71 ; Attention deficit hyperactivity disorder (ADHD), combined type F90.2 and Anxiety disorder, unspecified type F41.9 [facility] [address] [facility] [id number] [address] [place] [phone] Jul, Bipolar disorder, in partial remission, most recent episode hypomanic F31.71 [facility] [address] [facility] [id number] [address] [place] [phone] Jun, Bipolar disorder, in partial remission, most recent episode hypomanic F31.71 [facility] [address] [facility] [id number] [address] [place] [phone] May, Bipolar disorder, in partial remission, most recent episode hypomanic F31.71 [facility] [address] [id number] [address] [place] [phone] May, Bipolar disorder, in partial remission, most recent episode hypomanic F31.71 [facility] [address] [id number] [address] [place] [phone] Apr, [facility] [address] [facility] [id number] [address] [place] [phone] Apr, Bipolar disorder, in partial remission, most recent episode hypomanic F31.71 ; Attention deficit hyperactivity disorder (ADHD), combined type F90.2 ; Anxiety disorder, unspecified type F41.9 and Cannabis abuse F12.10 [facility] [address] [id number] [address] [place] [phone] Apr, Attention deficit hyperactiv ity disorder (ADHD), combined type F90.2 [facility] [address] [id number] [address] [place] [phone] Mar, Attention deficit hyperactiv ity disorder (ADHD), combined type F90.2 [facility] [address] [id number] [address] [place] [phone] Mar, Anxiety disorder, unspecifie d type F41.9 [facility] [address] [id number] [address] [place] [phone] Jan, Attention deficit hyperactiv ity disorder (ADHD), combined type F90.2 [facility] [address] [id number] [address] [place] [phone] Jan, Anxiety disorder, unspecifie d type F41.9 [facility] [address] [facility] [id number] [address] [place] [phone] Jan, Other chronic pain G89.29 ; Chronic hepatitis C without hepatic coma B18.2 and Bipolar 1 disorder F31.9 [facility] [address] [facility] [id number] [address] [place] [phone] Dec, Attention deficit hyperactiv ity disorder (ADHD), combined type F90.2 [facility] [address] [id number] [address] [place] [phone] Dec, Bipolar disorder, in partial remission, most recent episode hypomanic F31.71 ; Attention deficit hyperactivity disorder (ADHD), combined type F90.2 and Anxiety disorder, unspecified type F41.9 [facility] [address] [id number] [address] [place] [phone] 28 [place], 2017 Bipolar disorder, in partial remission, most recent episode hypomanic F31.71 ; Attention deficit hyperactivity disorder (ADHD), combined type F90.2 and Anxiety disorder, unspecified type F41.9 [facility] [address] [id number] [address] [place] [phone] Dec, Bipolar 1 disorder F31.9 and Attention deficit R41.840 [facility] [address] [id number] [address] [place] [phone] Oct, Other chronic pain G89.29 ; Alopecia L65.9 and Screening, lipid Z13.220 [facility] [address] [id number] [address] [place] [phone] Oct, [facility] [address] [id number] [address] [place] [phone] Aug, [facility] [address] [id number] [address] [place] [phone] Aug, Eustachian tube dysfunction, right H69.81 ; Vertigo R42 and Other chronic pain G89.29 [facility] [address] [id number] [address] [place] [phone] Aug, [facility] [address] [id number] [address] [place] [phone] Jun, [facility] [address] [id number] [address] [place] [phone] Jun, Low back pain M54.5 and Othe r chronic pain G89.29 [facility] [address] [id number] [address] [place] [phone] Jun, [facility] [address] [id number] [address] [place] [phone] May, [facility] [address] [id number] [address] [place] [phone] Jan, [facility] [address] [id number] [address] [place] [phone] Dec, [facility] [address] [id number] [address] [place] [phone] Dec, [facility] [address] [id number] [address] [place] [phone] Jun, [facility] [address] [facility] [id number] [address] [place] [phone] Apr, Eustachian tube dysfunction, unspecified laterality H69.80 ; Hot flashes N95.1 and Encounter for immunization Z23 [facility] [address] [id number] [address] [place] [phone] Jan, [facility] [address] [id number] [address] [place] [phone] Jan, [facility] [address] [facility] [id number] [address] [place] [phone] Jan, [facility] [address] [facility] [id number] [address] [place] [phone] Jan, [facility] [address] [facility] [id number] [address] [place] [phone] Jan, Encounter to establish care V65.8 ; Bipolar 1 disorder 296.7 ; Abdominal pain 789.00 ; Constipation 564.00 ; Hard of hearing 389.9 and Drug abuse 305.90 [facility] [address] [id number] [address] [place] [phone] Dec, [facility] [address] [id number] [address] [place] [phone] October, [facility] [address] [facility] [id number] [address] [place] [phone] October, [facility] [address] [facility] [id number] [address] [place] [phone] Oct, [facility] [address] [facility] [id number] [address] [place] [phone] Oct, [facility] [address] [id number] [address] [place] [address], [place] [address] Oct, [facility] [address] [id number] [address] [place] [address], [place] [address] Aug, [facility] [address] [id number] [address] [place] [address], [place] [address] Aug, [facility] [address] [id number] [address] [place] [address], [place] [address] Aug, [facility] [address] [id number] [address] [place] [address], [place] [address] Aug, 2014 [facility] [address] [id number] [address] [place] [address], [place] [address] Aug, 2014 [facility] [address] [id number] [address] [place] [address], [place] [address] Aug, 2014 [facility] [address] [id number] [address] [place] [address], [place] [address] Aug, 2014 [facility] [address] [id number] [address] [place] [address], [place] [address] Aug, 2014 [facility] [address] [id number] [address] [place] [address], [place] [address] Aug, 2014 [facility] [address] [id number] [address] [place] [address], [place] [address] Aug, 2014 [facility] [address] [id number] [address] [place] [address], [place] [address] Aug, 2014 [facility] [address] [id number] [address] [place] [address], [place] [address] Aug, 2014 [facility] [address] [id number] [address] [place] [address], [place] [address] Aug, 2014 [facility] [address] [id number] [address] [place] [phone] Aug, 2014 [facility] [address] [id number] [address] [place] [phone] Aug, [facility] [address] [id number] [address] [place] [address], [place] [address] Jul, [facility] [address] [id number] [address] [place] [address], [place] [address] Jul, [facility] [address] [id number] [address] [place] [address], [place] [address] Jul, [facility] [address] [id number] [address] [place] [address], [place] [address] Jul, [facility] [address] [id number] [address] [place] [address], [place] [address] Jul, [facility] [address] [id number] [address] [place] [address], [place] [address] Jul, [facility] [address] [id number] [address] [place] [address], [place] [address] Jul, [facility] [address] [id number] [address] [place] [address], [place] [address] Jul, [facility] [address] [id number] [address] [place] [address], [place] [address] Jun, [facility] [address] [id number] [address] [place] [address], [place] [address] Jun, [facility] [address] [id number] [address] [place] [address], [place] [address] Jun, [facility] [address] [id number] [address] [place] [address], [place] [address] 29 Jun, 2014 [facility] [address] [id number] [address] [place] [address], [place] [address] 18 Jun, 2014 [facility] [address] [id number] [address] [place] [address], [place] [address] Jun, [facility] [address] [id number] [address] [place] [address], [place] [address] Jun, [facility] [address] [id number] [address] [place] [address], [place] [address] Jun, [facility] [address] [id number] [address] [place] [address], [place] [address] Jun, [facility] [address] [id number] [address] [place] [address], [place] [address] Jun, [facility] [address] [id number] [address] [place] [address], [place] [address] Jun, [facility] [address] [id number] [address] [place] [address], [place] [address] May, [facility] [address] [id number] [address] [place] [address], [place] [address] May, [facility] [address] [id number] [address] [place] [address], [place] [address] May, [facility] [address] [id number] [address] [place] [address], [place] [address] May, [facility] [address] [id number] [address] [place] [address], [place] [address] May, [facility] [address] [id number] [address] [place] [address], [place] [address] May, [facility] [address] [id number] [address] [place] [address], [place] [address] May, [facility] [address] [id number] [address] [place] [address], [place] [address] Apr, [facility] [address] [id number] [address] [place] [address], [place] [address] Apr, [facility] [address] [id number] [address] [place] [address], [place] [address] Apr, [facility] [address] [id number] [address] [place] [address], [place] [address] Apr, [facility] [address] [id number] [address] [place] [address], [place] [address] Apr, [facility] [address] [id number] [address] [place] [address], [place] [address] Apr, [facility] [address] [id number] [address] [place] [address], [place] [address] Mar, [facility] [address] [id number] [address] [place] [address], [place] [address] Mar, [facility] [address] [id number] [address] [place] [address], [place] [address] Mar, [facility] [address] [id number] [address] [place] [address], [place] [address] Mar, [facility] [address] [id number] [address] [place] [address], [place] [address] Mar, [facility] [address] [id number] [address] [place] [address], [place] [address] Mar, [facility] [address] [id number] [address] [place] [address], [place] [address] Jan, [facility] [address] [id number] [address] [place] [address], [place] [address] Jan, [facility] [address] [id number] [address] [place] [address], [place] [address] Jan, [facility] [address] [id number] [address] [place] [address], [place] [address] Jan, [facility] [address] [id number] [address] [place] [address], [place] [address] Dec, [facility] [address] [id number] [address] [place] [address], [place] [address] Dec, [facility] [address] [id number] [address] [place] [address], [place] [address] Dec, [facility] [address] [id number] [address] [place] [address], [place] [address] Dec, [facility] [address] [id number] [address] [place] [address], [place] [address] Dec, [facility] [address] [id number] [address] [place] [address], [place] [address] Dec, [facility] [address] [id number] [address] [place] [address], [place] [address] Dec, [facility] [address] [id number] [address] [place] [address], [place] [address] Dec, [facility] [address] [id number] [address] [place] [address], [place] [address] Dec, [facility] [address] [id number] [address] [place] [address], [place] [address] Dec, [facility] [address] [id number] [address] [place] [address], [place] [address] Dec, [facility] [address] [id number] [address] [place] [address], [place] [address] Dec, [facility] [address] [id number] [address] [place] [address], [place] [address] October, [facility] [address] [id number] [address] [place] [address], [place] [address] October, [facility] [address] [id number] [address] [place] [address], [place] [address] October, [facility] [address] [id number] [address] [place] [address], [place] [address] October, [facility] [address] [id number] [address] [place] [address], [place] [address] October, [facility] [address] [id number] [address] [place] [address], [place] [address] October, [facility] [address] [id number] [address] [place] [address], [place] [address] Oct, [facility] [address] [id number] [address] [place] [address], [place] [address] Oct, [facility] [address] [id number] [facility] [place] [place] [address] Oct, [facility] [address] [id number] [facility] [place] [place] [address] Oct, [facility] [address] [id number] [facility] [place] [place] [address] Oct, [facility] [address] [id number] [address] [place] [address], [place] [address] Oct, [facility] [address] [id number] [facility] [place] [place] [address] Oct, [facility] [address] [id number] [address] [place] [address], [place] [address] Oct, [facility] [address] [id number] [address] [place] [address], [place] [address] Oct, [facility] [address] [id number] [address] [place] [address], [place] [address] Oct, [facility] [address] [id number] [address] [place] [address], [place] [address] Oct, [facility] [address] [id number] [address] [place] [address], [place] [address] Oct, [facility] [address] [id number] [address] [place] [address], [place] [address] Aug, [facility] [address] [id number] [address] [place] [address], [place] [address] Aug, [facility] [address] [id number] [address] [place] [address], [place] [address] Aug, [facility] [address] [id number] [address] [place] [address], [place] [address] Aug, [facility] [address] [id number] [address] [place] [address], [place] [address] Aug, [facility] [address] [id number] [address] [place] [address], [place] [address] Aug, [facility] [address] [id number] [facility] [place] [place] [address] 04 Aug, 2013 [facility] [address] [id number] [address] [place] [address], [place] [address] Aug, [facility] [address] [id number] [address] [place] [address], [place] [address] Aug, [facility] [address] [id number] [address] [place] [address], [place] [address] 24 Aug, 2013 [facility] [address] [id number] [address] [place] [address], [place] [address] 24 Aug, 2013 [facility] [address] [id number] [address] [place] [address], [place] [address] Aug, [facility] [address] [id number] [address] [place] [address], [place] [address] Aug, [facility] [address] [id number] [address] [place] [address], [place] [address] 20 Aug, 2013 [facility] [address] [id number] [address] [place] [address], [place] [address] 14 Aug, 2013 [facility] [address] [id number] [address] [place] [address], [place] [address] 14 Aug, 2013 [facility] [address] [id number] [address] [place] [address], [place] [address] 14 Aug, 2013 [facility] [address] [id number] [address] [place] [address], [place] [address] 14 Aug, 2013 [facility] [address] [id number] [address] [place] [address], [place] [address] 07 Aug, 2013 [facility] [address] [id number] [address] [place] [address], [place] [address] 07 Aug, 2013 [facility] [address] [id number] [address] [place] [address], [place] [address] 06 Aug, 2013 [facility] [address] [id number] [address] [place] [address], [place] [address] Aug, [facility] [address] [id number] [address] [place] [address], [place] [address] Aug, [facility] [address] [id number] [address] [place] [address], [place] [address] Aug, [facility] [address] [id number] [address] [place] [address], [place] [address] Aug, [facility] [address] [id number] [address] [place] [address], [place] [address] Jul, [facility] [address] [id number] [address] [place] [address], [place] [address] Jul, [facility] [address] [id number] [address] [place] [address], [place] [address] Jul, [facility] [address] [id number] [address] [place] [address], [place] [address] Jul, [facility] [address] [id number] [address] [place] [address], [place] [address] Jul, [facility] [address] [id number] [address] [place] [address], [place] [address] Jul, [facility] [address] [id number] [address] [place] [address], [place] [address] Jul, [facility] [address] [id number] [address] [place] [address], [place] [address] Jul, [facility] [address] [id number] [address] [place] [address], [place] [address] Jul, [facility] [address] [id number] [address] [place] [address], [place] [address] Jul, [facility] [address] [id number] [address] [place] [address], [place] [address] Jul, [facility] [address] [id number] [address] [place] [address], [place] [address] Jul, [facility] [address] [id number] [address] [place] [address], [place] [address] Jul, [facility] [address] [id number] [address] [place] [address], [place] [address] Jul, [facility] [address] [id number] [address] [place] [address], [place] [address] Jul, [facility] [address] [id number] [address] [place] [address], [place] [address] Jul, [facility] [address] [id number] [address] [place] [address], [place] [address] Jul, [facility] [address] [id number] [address] [place] [address], [place] [address] Jul, [facility] [address] [id number] [address] [place] [address], [place] [address] Jul, [facility] [address] [id number] [address] [place] [address], [place] [address] Jul, [facility] [address] [id number] [address] [place] [address], [place] [address] Jun, [facility] [address] [id number] [address] [place] [address], [place] [address] Jun, [facility] [address] [id number] [address] [place] [address], [place] [address] 30 Jun, 2013 [facility] [address] [id number] [address] [place] [address], [place] [address] 30 Jun, 2013 [facility] [address] [id number] [address] [place] [address], [place] [address] Jun, [facility] [address] [id number] [address] [place] [address], [place] [address] Jun, [facility] [address] [id number] [address] [place] [address], [place] [address] Jun, [facility] [address] [id number] [address] [place] [address], [place] [address] Jun, [facility] [address] [id number] [address] [place] [address], [place] [address] Jun, [facility] [address] [id number] [address] [place] [address], [place] [address] Jun, [facility] [address] [id number] [address] [place] [address], [place] [address] Jun, [facility] [address] [id number] [address] [place] [address], [place] [address] Jun, [facility] [address] [id number] [address] [place] [address], [place] [address] Jun, [facility] [address] [id number] [address] [place] [address], [place] [address] Jun, [facility] [address] [id number] [address] [place] [address], [place] [address] Jun, [facility] [address] [id number] [address] [place] [address], [place] [address] Jun, [facility] [address] [id number] [address] [place] [address], [place] [address] Jun, [facility] [address] [id number] [address] [place] [address], [place] [address] 17 Jun, 2013 [facility] [address] [id number] [address] [place] [address], [place] [address] 17 Jun, 2013 [facility] [address] [id number] [address] [place] [address], [place] [address] 13 Jun, 2013 [facility] [address] [id number] [address] [place] [address], [place] [address] Jun, [facility] [address] [id number] [address] [place] [address], [place] [address] Jun, [facility] [address] [id number] [address] [place] [address], [place] [address] Jun, [facility] [address] [id number] [address] [place] [address], [place] [address] Jun, [facility] [address] [id number] [address] [place] [address], [place] [address] Jun, [facility] [address] [id number] [address] [place] [address], [place] [address] Jun, [facility] [address] [id number] [address] [place] [address], [place] [address] Jun, [facility] [address] [id number] [address] [place] [address], [place] [address] May, [facility] [address] [id number] [address] [place] [address], [place] [address] May, [facility] [address] [id number] [address] [place] [address], [place] [address] May, [facility] [address] [id number] [address] [place] [address] May, [facility] [address] [id number] [address] [place] [address], [place] [address] May, [facility] [address] [id number] [address] [place] [address] May, [facility] [address] [id number] [address] [place] [address] Apr, [facility] [address] [id number] [address] [place] [address] Apr, [facility] [address] [id number] [address] [place] [address], [place] [address] Apr, [facility] [address] [id number] [address] [place] [address] Apr, [facility] [address] [id number] [address] [place] [address], [place] [address] Apr, [facility] [address] [id number] [address] [place] [address], [place] [address] 15 Apr, 2013 [facility] [address] [id number] [address] [place] [address], [place] [address] 15 Apr, 2013 [facility] [address] [id number] [address] [place] [address], [place] [address] 01 Apr, 2013 [facility] [address] [id number] [address] [place] [address], [place] [address] 26 Mar, 2012 [facility] [address] [id number] [address] [place] [address], [place] [address] 24 Mar, 2012 [facility] [address] [id number] [address] [place] [address], [place] [address] 17 Mar, 2012 [facility] [address] [id number] [address] [place] [address], [place] [address] 17 Mar, 2012 [facility] [address] [id number] [address] [place] [address], [place] [address] 11 Mar, 2012 [facility] [address] [id number] [address] [place] [address], [place] [address] 10 Mar, 2012 [facility] [address] [id number] [address] [place] [address], [place] [address] 05 Mar, 2012 [facility] [address] [id number] [address] [place] [address], [place] [address] 04 Mar, 2013 [facility] [address] [id number] [address] [place] [address], [place] [address] 20 Jan, 2013 [facility] [address] [id number] [address] [place] [address], [place] [address] 19 Jan, 2013 [facility] [address] [id number] [address] [place] [address], [place] [address] 14 Jan, 2013 [facility] [address] [id number] [address] [place] [address], [place] [address] 12 Jan, 2013 [facility] [address] [id number] [address] [place] [address], [place] [address] 07 Jan, 2013 [facility] [address] [id number] [address] [place] [address], [place] [address] 05 Jan, 2013 [facility] [address] [id number] [address] [place] [address], [place] [address] 31 Dec, 2012 [facility] [address] [id number] [address] [place] [address], [place] [address] 24 Dec, 2012 [facility] [address] [id number] [address] [place] [address], [place] [address] Dec, [facility] [address] [id number] [address] [place] [address], [place] [address] Dec, [facility] [address] [id number] [address] [place] [address], [place] [address] 18 Dec, 2012 [facility] [address] [id number] [address] [place] [address], [place] [address] 17 Dec, 2012 [facility] [address] [id number] [address] [place] [address], [place] [address] 16 Dec, 2012 [facility] [address] [id number] [address] [place] [address], [place] [address] 16 Dec, 2012 [facility] [address] [id number] [address] [place] [address], [place] [address] 15 Dec, 2012 [facility] [address] [id number] [address] [place] [address], [place] [address] Dec, [facility] [address] [id number] [address] [place] [address], [place] [address] Dec, [facility] [address] [id number] [address] [place] [address], [place] [address] Dec, [facility] [address] [id number] [address] [place] [address], [place] [address] Dec, [facility] [address] [id number] [address] [place] [address], [place] [address] 17 Dec, 2012 [facility] [address] [id number] [address] [place] [address], [place] [address] Dec, [facility] [address] [id number] [address] [place] [address], [place] [address] Dec, [facility] [address] [id number] [address] [place] [address], [place] [address] October, [facility] [address] [id number] [address] [place] [address], [place] [address] October, [facility] [address] [id number] [address] [place] [address], [place] [address] October, [facility] [address] [id number] [address] [place] [address], [place] [address] October, [facility] [address] [id number] [address] [place] [address], [place] [address] October, [facility] [address] [id number] [address] [place] [address], [place] [address] October, [facility] [address] [id number] [address] [place] [address], [place] [address] October, [facility] [address] [id number] [address] [place] [address], [place] [address] Oct, [facility] [address] [id number] [address] [place] [address], [place] [address] Oct, [facility] [address] [id number] [address] [place] [address], [place] [address] Oct, [facility] [address] [id number] [address] [place] [address], [place] [address] Oct, [facility] [address] [id number] [address] [place] [address], [place] [address] Oct, [facility] [address] [id number] [address] [place] [address], [place] [address] 18 Oct, 2012 [facility] [address] [id number] [address] [place] [address], [place] [address] Oct, [facility] [address] [id number] [address] [place] [address], [place] [address] 15 Oct, 2012 [facility] [address] [id number] [address] [place] [address], [place] [address] Oct, [facility] [address] [id number] [address] [place] [address], [place] [address] Oct, [facility] [address] [id number] [address] [place] [address], [place] [address] Oct, [facility] [address] [id number] [address] [place] [address], [place] [address] Oct, [facility] [address] [id number] [address] [place] [address], [place] [address] Aug, [facility] [address] [id number] [address] [place] [address], [place] [address] Aug, [facility] [address] [id number] [address] [place] [address], [place] [address] Aug, [facility] [address] [id number] [address] [place] [address], [place] [address] Aug, [facility] [address] [id number] [address] [place] [address], [place] [address] 05 Aug, 2012 [facility] [address] [id number] [address] [place] [address], [place] [address] 05 Aug, 2012 [facility] [address] [id number] [address] [place] [address], [place] [address] 20 Aug, 2012 [facility] [address] [id number] [address] [place] [address], [place] [address] 14 Aug, 2012 [facility] [address] [id number] [address] [place] [address], [place] [address] Aug, [facility] [address] [id number] [address] [place] [address], [place] [address] Aug, [facility] [address] [id number] [address] [place] [address], [place] [address] Jul, [facility] [address] [id number] [address] [place] [address], [place] [address] 15 Jul, 2012 [facility] [address] [id number] [address] [place] [address], [place] [address] 08 Jul, 2012 [facility] [address] [id number] [address] [place] [address], [place] [address] 20 Jun, 2012 [facility] [address] [id number] [address] [place] [address], [place] [address] 18 Jun, 2012 [facility] [address] [id number] [address] [place] [address], [place] [address] 18 Jun, 2012 [facility] [address] [id number] [address] [place] [address], [place] [address] 18 Jun, 2012 [facility] [address] [id number] [address] [place] [address], [place] [address] 18 Jun, 2012 [facility] [address] [id number] [address] [place] [address], [place] [address] 14 Jun, 2012 [facility] [address] [id number] [address] [place] [address], [place] [address] 14 Jun, 2012 [facility] [address] [id number] [address] [place] [address], [place] [address] 13 Jun, 2012 [facility] [address] [id number] [address] [place] [address], [place] [address] 13 Jun, 2012 [facility] [address] [id number] [address] [place] [address], [place] [address] 11 Jun, 2012 [facility] [address] [id number] [address] [place] [address], [place] [address] 11 Jun, 2012 [facility] [address] [id number] [address] [place] [address], [place] [address] 11 Jun, 2012 [facility] [address] [id number] [address] [place] [address], [place] [address] 11 Jun, 2012 [facility] [address] [id number] [address] [place] [address], [place] [address] 07 Jun, 2012 [facility] [address] [id number] [address] [place] [address], [place] [address] Jun, [facility] [address] [id number] [address] [place] [address], [place] [address] Jun, [facility] [address] [id number] [address] [place] [address], [place] [address] Jun, [facility] [address] [id number] [address] [place] [address], [place] [address] Jun, [facility] [address] [id number] [address] [place] [address], [place] [address] Jun, [facility] [address] [id number] [address] [place] [address], [place] [address] Jun, [facility] [address] [id number] [address] [place] [address], [place] [address] Jun, [facility] [address] [id number] [address] [place] [address], [place] [address] Jun, [facility] [address] [id number] [address] [place] [address], [place] [address] Jun, [facility] [address] [id number] [address] [place] [address], [place] [address] May, [facility] [address] [id number] [address] [place] [address], [place] [address] May, [facility] [address] [id number] [address] [place] [address], [place] [address] May, [facility] [address] [id number] [address] [place] [address], [place] [address] May, [facility] [address] [id number] [address] [place] [address], [place] [address] May, [facility] [address] [id number] [address] [place] [address], [place] [address] May, [facility] [address] [id number] [address] [place] [address], [place] [address] May, [facility] [address] [id number] [address] [place] [address], [place] [address] May, [facility] [address] [id number] [address] [place] [address], [place] [address] Apr, [facility] [address] [id number] [address] [place] [address], [place] [address] Apr, [facility] [address] [id number] [address] [place] [address], [place] [address] Apr, [facility] [address] [id number] [address] [place] [address], [place] [address] Apr, [facility] [address] [id number] [address] [place] [address], [place] [address] Apr, [facility] [address] [id number] [address] [place] [address], [place] [address] Apr, [facility] [address] [id number] [address] [place] [address], [place] [address] Apr, [facility] [address] [id number] [address] [place] [address], [place] [address] Apr, [facility] [address] [id number] [address] [place] [address], [place] [address] Apr, [facility] [address] [id number] [address] [place] [address], [place] [address] Apr, [facility] [address] [id number] [address] [place] [address], [place] [address] Apr, [facility] [address] [id number] [address] [place] [address], [place] [address] Apr, [facility] [address] [id number] [address] [place] [address], [place] [address] Mar, [facility] [address] [id number] [address] [place] [id number] 18 Mar, 2012 [facility] [address] [id number] [address] [place] [address], [place] [address] Mar, [facility] [address] [id number] [address] [place] [address] Mar, [facility] [address] [id number] [address] [place] [id number] Mar, [facility] [address] [id number] [address] [place] [id number] Mar, [facility] [address] [id number] [address] [place] [address], [place] [address] Mar, [facility] [address] [id number] [address] [place] [id number] Jan, [facility] [address] [id number] [address] [place] [id number] Jan, [facility] [address] [id number] [address] [place] [id number] Jan, [facility] [address] [id number] [address] [place] [id number] Jan, [facility] [address] [id number] [address] [place] [id number] Jan, [facility] [address] [id number] [address] [place] [id number] Jan, [facility] [address] [id number] [address] [place] [phone] Jan, [facility] [address] [id number] [address] [place] [address], [place] [address] 14 Feb, 2012 [facility] [address] [id number] [address] [place] [id number] Jan, [facility] [address] [id number] [address] [place] [id number] Jan, [facility] [address] [id number] [address] [place] [address], [place] [address] Jan, [facility] [address] [id number] [address] [place] [address], [place] [address] Dec, [facility] [address] [id number] [address] [place] [address], [place] [address] Dec, [facility] [address] [id number] [address] [place] [address], [place] [address] Dec, [facility] [address] [id number] [address] [place] [address], [place] [address] Dec, [facility] [address] [id number] [address] [place] [address], [place] [address] Dec, [facility] [address] [id number] [address] [place] [address], [place] [address] Dec, [facility] [address] [id number] [address] [place] [address], [place] [address] Dec, [facility] [address] [id number] [address] [place] [address], [place] [address] 17 Jan, 2012 [facility] [address] [id number] [address] [place] [address], [place] [address] 16 Jan, 2012 [facility] [address] [id number] [address] [place] [address], [place] [address] Dec, [facility] [address] [id number] [address] [place] [address], [place] [address] Dec, [facility] [address] [id number] [address] [place] [address], [place] [address] Dec, [facility] [address] [id number] [address] [place] [address], [place] [address] Dec, [facility] [address] [id number] [address] [place] [address], [place] [address] Dec, [facility] [address] [id number] [address] [place] [address], [place] [address] Dec, [facility] [address] [id number] [address] [place] [address], [place] [address] Dec, [facility] [address] [id number] [address] [place] [address], [place] [address] Dec, [facility] [address] [id number] [address] [place] [address], [place] [address] Dec, [facility] [address] [id number] [address] [place] [address], [place] [address] Dec, [facility] [address] [id number] [address] [place] [address], [place] [address] October, [facility] [address] [id number] [address] [place] [address], [place] [address] October, [facility] [address] [id number] [address] [place] [address], [place] [address] October, [facility] [address] [id number] [address] [place] [address], [place] [address] October, [facility] [address] [id number] [address] [place] [address], [place] [address] October, [facility] [address] [id number] [address] [place] [address], [place] [address] October, [facility] [address] [id number] [address] [place] [address], [place] [address] Oct, [facility] [address] [id number] [address] [place] [address], [place] [address] Oct, [facility] [address] [id number] [address] [place] [address], [place] [address] Oct, [facility] [address] [id number] [address] [place] [address], [place] [address] Oct, [facility] [address] [id number] [address] [place] [address], [place] [address] Oct, [facility] [address] [id number] [address] [place] [address], [place] [address] Oct, [facility] [address] [id number] [address] [place] [address], [place] [address] Oct, [facility] [address] [id number] [address] [place] [address], [place] [address] 29 Sep, 2011 [facility] [address] [id number] [address] [place] [address], [place] [address] 29 Sep, 2011 [facility] [address] [id number] [address] [place] [address], [place] [address] Aug, [facility] [address] [id number] [address] [place] [address], [place] [address] Aug, [facility] [address] [id number] [address] [place] [address], [place] [address] Aug, [facility] [address] [id number] [address] [place] [address], [place] [address] Aug, [facility] [address] [id number] [address] [place] [address], [place] [address] Aug, [facility] [address] [id number] [address] [place] [address], [place] [address] Aug, [facility] [address] [id number] [address] [place] [address], [place] [address] Aug, [facility] [address] [id number] [address] [place] [address], [place] [address] Jul, [facility] [address] [id number] [address] [place] [address], [place] [address] Jul, [facility] [address] [id number] [address] [place] [address], [place] [address] Jul, [facility] [address] [id number] [address] [place] [address], [place] [address] Jul, [facility] [address] [id number] [address] [place] [address], [place] [address] Jun, [facility] [address] [id number] [address] [place] [address], [place] [address] Jun, [facility] [address] [id number] [address] [place] [address], [place] [address] May, [facility] [address] [id number] [address] [place] [address], [place] [address] May, [facility] [address] [id number] [address] [place] [address], [place] [address] May, [facility] [address] [id number] [address] [place] [address], [place] [address] May, [facility] [address] [id number] [address] [place] [address], [place] [address] May, [facility] [address] [id number] [address] [place] [address], [place] [address] Apr, [facility] [address] [id number] [address] [place] [address], [place] [address] Apr, [facility] [address] [id number] [address] [place] [address], [place] [address] Apr, [facility] [address] [id number] [address] [place] [address], [place] [address] 15 Jan, 2011 [facility] [address] [id number] [address] [place] [address], [place] [address] Dec, [facility] [address] [id number] [address] [place] [address], [place] [address] October, [facility] [address] [id number] [address] [place] [address], [place] [address] Jun, [facility] [address] [id number] [address] [place] [address], [place] [address] 23 Apr, 2009 [facility] [address] [id number] [address] [place] [address], [place] [address] 13 Apr, 2009 [facility] [address] [id number] [address] [place] [address], [place] [address] Apr, [facility] [address] [facility] [id number] [address] [place] [address] Jun, IMMUNIZATIONS No Known Immunizations SOCIAL HISTORY [...]
--- OUTSIDE RECORDS SUMMARY | 2020-01-25 12:34 | XMS REPORT ---
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 Name Role Phone MELISA Iraheta Unavailable PROBLEMS Type Condition ICD9-CM Code HWU39-CV Code Onset Dates Condition S tatus SNOMED Code Problem Chronic hepatitis C without hepatic coma B18.2 Active 763584944 Problem Cannabis abuse F12.10 Active 45483 009 Problem Bipolar 1 disorder F31.9 Active 3 50023205 Problem Attention deficit hyperactivity disorder (ADHD), combi luciano type F90.2 Active 67422247 Problem Attention deficit R41.840 Active 76 031834 Problem Hot flashes due to menopause N95.1 A ctive 761518678 Problem H/O laminectomy Z98.89 Active 1616 92001 Problem Other chronic pain G89.29 Active 8 3261266 Problem Anxiety disorder, unspecified type F41.9 Active 856097392 Problem Bipolar disorder, in partial remission, most rec ent episode hypomanic F31.71 Active 233207804 ALLERGIES No Information ENCOUNTERS Encounter Location Date Diagnosis [place] [address] [facility] [id number] [address] [place] [phone] Apr, [place] [address] [facility] [id number] [address] [place] [phone] Mar, Hot flashes due to menopause N95.1 ; Anxiety disorder, unspecified type F41.9 ; Low back pain M54.5 and Encounter for immunization Z23 [facility] [address] [facility] [id number] [address] [place] [phone] Dec, Other chronic pain G89.29 an d Low back pain M54.5 [place] [address] [facility] [id number] [address] [place] [phone] October, [place] [address] [id number] [address] [place] [phone] October, [facility] [address] [facility] [id number] [address] [place] [phone] October, [facility] [address] [facility] [id number] [address] [place] [phone] October, Other chronic pain G89.29 an d Chronic hepatitis C without hepatic coma B18.2 [facility] [address] [facility] [id number] [address] [place] [phone] Aug, Bipolar disorder, in partial remission, most recent episode hypomanic F31.71 ; Attention deficit hyperactivity disorder (ADHD), combined type F90.2 and Anxiety disorder, unspecified type F41.9 [facility] [address] [facility] [id number] [address] [place] [phone] Aug, [facility] [address] [facility] [id number] [address] [place] [phone] Aug, Bipolar disorder, in partial remission, most recent episode hypomanic F31.71 [facility] [address] [facility] [id number] [address] [place] [phone] Aug, [facility] [address] [facility] [id number] [address] [place] [phone] Aug, Bipolar disorder, in partial remission, most recent episode hypomanic F31.71 [facility] [address] [facility] [id number] [address] [place] [phone] Aug, Bipolar disorder, in partial remission, most recent episode hypomanic F31.71 ; Attention deficit hyperactivity disorder (ADHD), combined type F90.2 and Anxiety disorder, unspecified type F41.9 [facility] [address] [facility] [id number] [address] [place] [id number] Aug, Low back pain M54.5 and Pain in left wrist M25.532 [facility] [address] [facility] [id number] [address] [place] [phone] Aug, [facility] [address] [id number] [address] [place] [phone] Jun, [facility] [address] [id number] [address] [place] [phone] Apr, Bipolar disorder, in partial remission, most recent episode hypomanic F31.71 [facility] [address] [id number] [address] [place] [phone] Apr, [facility] [address] [id number] [address] [place] [phone] Apr, Bipolar disorder, in partial remission, most recent episode hypomanic F31.71 ; Attention deficit hyperactivity disorder (ADHD), combined type F90.2 ; Anxiety disorder, unspecified type F41.9 and Other senior living (current) 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 Z79.899 [facility] [address] [id number] [address] [place] [phone] Apr, Bipolar disorder, in partial remission, most recent episode hypomanic F31.71 [facility] [address] [id number] [address] [place] [id number] Apr, Bipolar disorder, in partial remission, most recent episode hypomanic F31.71 [facility] [address] [id number] [address] [place] [phone] Mar, [facility] [address] [id number] [address] [place] [phone] Mar, Bipolar disorder, in partial remission, most recent episode hypomanic F31.71 ; Encounter for immunization Z23 and Low back pain M54.5 [facility] [address] [id number] [address] [place] [phone] 17 Mar, 2018 Bipolar disorder, in partial remission, most recent episode hypomanic F31.71 [facility] [address] [id number] [address] [place] [phone] 13 Mar, 2018 Bipolar disorder, in partial remission, most recent episode hypomanic F31.71 [facility] [address] [facility] [id number] [address] [place] [id number] Jan, Bipolar disorder, in partial remission, most recent episode hypomanic F31.71 [facility] [address] [facility] [id number] [address] [place] [phone] Jan, Bipolar disorder, in partial remission, most recent episode hypomanic F31.71 [facility] [address] [facility] [id number] [address] [place] [phone] Dec, Bipolar disorder, in partial remission, most recent episode hypomanic F31.71 [facility] [address] [id number] [address] [place] [phone] Dec, Bipolar disorder, in partial remission, most recent episode hypomanic F31.71 ; Attention deficit hyperactivity disorder (ADHD), combined type F90.2 ; Anxiety disorder, unspecified type F41.9 and Other manager terminal (current) 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 Z79.899 [facility] [address] [facility] [id number] [address] [place] [phone] Dec, Bipolar disorder, in partial remission, most recent episode hypomanic F31.71 [facility] [address] [facility] [id number] [address] [place] [phone] Dec, Bipolar disorder, in partial remission, most recent episode hypomanic F31.71 [facility] [address] [facility] [id number] [address] [place] [phone] October, Bipolar disorder, in partial remission, most recent episode hypomanic F31.71 [facility] [address] [facility] [id number] [address] [place] [phone] October, [facility] [address] [facility] [id number] [address] [place] [phone] October, [facility] [address] [facility] [id number] [address] [place] [phone] Oct, Bipolar disorder, in partial remission, most recent episode hypomanic F31.71 ; Attention deficit hyperactivity disorder (ADHD), combined type F90.2 ; Anxiety disorder, unspecified type F41.9 and Encounter for drug screening Z02.83 [facility] [address] [facility] [id number] [address] [place] [phone] Oct, Bipolar disorder, in partial remission, most recent episode hypomanic F31.71 [facility] [address] [id number] [address] [place] [phone] Oct, Bipolar disorder, in partial remission, most recent episode hypomanic F31.71 [facility] [address] [facility] [id number] [address] [place] [phone] Aug, Bipolar disorder, in partial remission, most recent episode hypomanic F31.71 [facility] [address] [facility] [id number] [address] [place] [phone] Aug, Bipolar disorder, in partial remission, most recent episode hypomanic F31.71 [facility] [address] [facility] [id number] [address] [place] [phone] Aug, Bipolar disorder, in partial remission, most recent episode hypomanic F31.71 [facility] [address] [id number] [address] [place] [phone] Jul, Bipolar disorder, in partial remission, most recent episode hypomanic F31.71 ; Attention deficit hyperactivity disorder (ADHD), combined type F90.2 and Anxiety disorder, unspecified type F41.9 [facility] [address] [facility] [id number] [address] [place] [phone] Jul, Bipolar disorder, in partial remission, most recent episode hypomanic F31.71 [facility] [address] [id number] [address] [place] [phone] Jun, Bipolar disorder, in partial remission, most recent episode hypomanic F31.71 [facility] [address] [facility] [id number] [address] [place] [phone] May, Bipolar disorder, in partial remission, most recent episode hypomanic F31.71 [facility] [address] [facility] [id number] [address] [place] [phone] May, Bipolar disorder, in partial remission, most recent episode hypomanic F31.71 [facility] [address] [facility] [id number] [address] [place] [phone] Apr, [facility] [address] [facility] [id number] [address] [place] [phone] Apr, Bipolar disorder, in partial remission, most recent episode hypomanic F31.71 ; Attention deficit hyperactivity disorder (ADHD), combined type F90.2 ; Anxiety disorder, unspecified type F41.9 and Cannabis abuse F12.10 [facility] [address] [facility] [id number] [address] [place] [phone] Apr, Attention deficit hyperactiv ity disorder (ADHD), combined type F90.2 [facility] [address] [facility] [id number] [address] [place] [phone] Mar, Attention deficit hyperactiv ity disorder (ADHD), combined type F90.2 [facility] [address] [facility] [id number] [address] [place] [phone] Mar, Anxiety disorder, unspecifie d type F41.9 [facility] [address] [facility] [id number] [address] [place] [phone] Jan, Attention deficit hyperactiv ity disorder (ADHD), combined type F90.2 [facility] [address] [facility] [id number] [address] [place] [phone] Jan, Anxiety disorder, unspecifie d type F41.9 [facility] [address] [facility] [id number] [address] [place] [phone] Jan, Other chronic pain G89.29 ; Chronic hepatitis C without hepatic coma B18.2 and Bipolar 1 disorder F31.9 [facility] [address] [facility] [id number] [address] [place] [phone] Dec, Attention deficit hyperactiv ity disorder (ADHD), combined type F90.2 [facility] [address] [facility] [id number] [address] [place] [phone] Dec, Bipolar disorder, in partial remission, most recent episode hypomanic F31.71 ; Attention deficit hyperactivity disorder (ADHD), combined type F90.2 and Anxiety disorder, unspecified type F41.9 [facility] [address] [id number] [address] [place] [id number] Dec, Bipolar disorder, in partial remission, most recent episode hypomanic F31.71 ; Attention deficit hyperactivity disorder (ADHD), combined type F90.2 and Anxiety disorder, unspecified type F41.9 [facility] [address] [id number] [address] [place] [phone] Dec, Bipolar 1 disorder F31.9 and Attention deficit R41.840 [facility] [address] [facility] [id number] [address] [place] [phone] Oct, Other chronic pain G89.29 ; Alopecia L65.9 and Screening, lipid Z13.220 [facility] [address] [facility] [id number] [address] [place] [phone] Oct, [facility] [address] [facility] [id number] [address] [place] [phone] Aug, [facility] [address] [facility] [id number] [address] [place] [phone] Aug, Eustachian tube dysfunction, right H69.81 ; Vertigo R42 and Other chronic pain G89.29 [facility] [address] [facility] [id number] [address] [place] [phone] Aug, [facility] [address] [id number] [address] [place] [phone] Jun, [facility] [address] [facility] [id number] [address] [place] [phone] Jun, Low back pain M54.5 and Othe r chronic pain G89.29 [facility] [address] [facility] [id number] [address] [place] [phone] Jun, [facility] [address] [facility] [id number] [address] [place] [phone] May, [facility] [address] [facility] [id number] [address] [place] [phone] Jan, [facility] [address] [facility] [id number] [address] [place] [phone] Dec, [facility] [address] [facility] [id number] [address] [place] [phone] Dec, [facility] [address] [place] [id number] [address] [place] [phone] Jun, [facility] [address] [place] [id number] [place] [phone] Apr, Eustachian tube dysfunction, unspecified laterality H69.80 ; Hot flashes N95.1 and Encounter for immunization Z23 [facility] [address] [phone] Jan, [facility] [address] [place] [id number] [place] [phone] Jan, [facility] [address] [phone] Jan, [facility] [address] [place] [id number] [place] [phone] Jan, [facility] [address] [place] [id number] [address] [place] [phone] Jan, Encounter to establish care V65.8 ; Bipolar 1 disorder 296.7 ; Abdominal pain 789.00 ; Constipation 564.00 ; Hard of hearing 389.9 and Drug abuse 305.90 [facility] [address] [place] [id number] [address] [place] [phone] Dec, [facility] [address] [place] [id number] [address] [place] [phone] October, [facility] [address] [place] [id number] [address] [place] [phone] October, [facility] [address] [id number] [address] [place] [address], [place] [address] 30 Oct, 2014 [facility] [address] [id number] [address] [place] [address], [place] [address] 14 Oct, 2014 [facility] [address] [id number] [address] [place] [address], [place] [address] Oct, [facility] [address] [id number] [address] [place] [address], [place] [address] Aug, [facility] [address] [id number] [address] [place] [address], [place] [address] Aug, [facility] [address] [id number] [address] [place] [address], [place] [address] Aug, [facility] [address] [id number] [address] [place] [address], [place] [address] Aug, [facility] [address] [id number] [address] [place] [address], [place] [address] Aug, 2014 [facility] [address] [id number] [address] [place] [address], [place] [address] Aug, [facility] [address] [id number] [address] [place] [address], [place] [address] Aug, [facility] [address] [id number] [address] [place] [address], [place] [address] Aug, 2014 [facility] [address] [id number] [address] [place] [address], [place] [address] Aug, 2014 [facility] [address] [id number] [address] [place] [address], [place] [address] Aug, 2014 [facility] [address] [id number] [address] [place] [address], [place] [address] Aug, 2014 [facility] [address] [id number] [address] [place] [address], [place] [address] 05 Aug, 2014 [facility] [address] [id number] [address] [place] [address], [place] [address] Aug, [facility] [address] [id number] [address] [place] [address], [place] [address] Aug, [facility] [address] [id number] [address] [place] [address], [place] [address] Aug, [facility] [address] [id number] [address] [place] [address], [place] [address] Jul, [facility] [address] [id number] [address] [place] [address], [place] [address] Jul, [facility] [address] [id number] [address] [place] [address], [place] [address] Jul, [facility] [address] [id number] [address] [place] [address], [place] [address] Jul, [facility] [address] [id number] [address] [place] [address], [place] [address] Jul, [facility] [address] [id number] [address] [place] [address], [place] [address] Jul, [facility] [address] [id number] [address] [place] [address], [place] [address] Jul, [facility] [address] [id number] [address] [place] [address], [place] [address] Jul, [facility] [address] [id number] [address] [place] [address], [place] [address] Jun, [facility] [address] [id number] [address] [place] [address], [place] [address] Jun, [facility] [address] [id number] [address] [place] [address], [place] [address] Jun, [facility] [address] [id number] [address] [place] [address], [place] [address] Jun, [facility] [address] [id number] [address] [place] [address], [place] [address] 18 Jun, 2014 [facility] [address] [id number] [address] [place] [address], [place] [address] 15 Jun, 2014 [facility] [address] [id number] [address] [place] [address], [place] [address] 15 Jun, 2014 [facility] [address] [id number] [address] [place] [address], [place] [address] Jun, [facility] [address] [id number] [address] [place] [address], [place] [address] Jun, [facility] [address] [id number] [address] [place] [address], [place] [address] Jun, [facility] [address] [id number] [address] [place] [address], [place] [address] Jun, [facility] [address] [id number] [address] [place] [address], [place] [address] May, [facility] [address] [id number] [address] [place] [address], [place] [address] May, [facility] [address] [id number] [address] [place] [address], [place] [address] May, [facility] [address] [id number] [address] [place] [address], [place] [address] May, [facility] [address] [id number] [address] [place] [address], [place] [address] May, [facility] [address] [id number] [address] [place] [address], [place] [address] May, [facility] [address] [id number] [address] [place] [address], [place] [address] May, [facility] [address] [id number] [address] [place] [address], [place] [address] Apr, [facility] [address] [id number] [address] [place] [address], [place] [address] Apr, [facility] [address] [id number] [address] [place] [address], [place] [address] Apr, [facility] [address] [id number] [address] [place] [address], [place] [address] Apr, [facility] [address] [id number] [address] [place] [address], [place] [address] Apr, [facility] [address] [id number] [address] [place] [address], [place] [address] Apr, [facility] [address] [id number] [address] [place] [address], [place] [address] Mar, [facility] [address] [id number] [address] [place] [address], [place] [address] Mar, [facility] [address] [id number] [address] [place] [address], [place] [address] Mar, [facility] [address] [id number] [address] [place] [address], [place] [address] Mar, [facility] [address] [id number] [address] [place] [address], [place] [address] Mar, [facility] [address] [id number] [address] [place] [address], [place] [address] Mar, [facility] [address] [id number] [address] [place] [address], [place] [address] Jan, [facility] [address] [id number] 31 [place] [address], [place] [address] Jan, [facility] [address] [id number] [address] [place] [address], [place] [address] Jan, [facility] [address] [id number] [address] [place] [address], [place] [address] Jan, [facility] [address] [id number] [address] [place] [address], [place] [address] Dec, [facility] [address] [id number] [address] [place] [address], [place] [address] Dec, [facility] [address] [id number] [address] [place] [address], [place] [address] Dec, [facility] [address] [id number] [address] [place] [address], [place] [address] Dec, [facility] [address] [id number] [address] [place] [address], [place] [address] Dec, [facility] [address] [id number] [address] [place] [address], [place] [address] Dec, [facility] [address] [id number] [address] [place] [address], [place] [address] Dec, [facility] [address] [id number] [address] [place] [address], [place] [address] Dec, [facility] [address] [id number] [address] [place] [address], [place] [address] Dec, [facility] [address] [id number] [address] [place] [address], [place] [address] Dec, [facility] [address] [id number] [address] [place] [address], [place] [address] Dec, [facility] [address] [id number] [address] [place] [address], [place] [address] Dec, [facility] [address] [id number] [address] [place] [address], [place] [address] October, [facility] [address] [id number] [address] [place] [address], [place] [address] October, [facility] [address] [id number] [address] [place] [address], [place] [address] October, [facility] [address] [id number] [address] [place] [address], [place] [address] October, [facility] [address] [id number] [address] [place] [address], [place] [address] October, [facility] [address] [id number] [address] [place] [address], [place] [address] October, [facility] [address] [id number] [address] [place] [address], [place] [address] Oct, [facility] [address] [id number] [address] [place] [address], [place] [address] Oct, [facility] [address] [id number] [address] [place] [address], [place] [address] Oct, [facility] [address] [id number] [address] [place] [address], [place] [address] Oct, [facility] [address] [id number] [address] [place] [address], [place] [address] Oct, [facility] [address] [id number] [address] [place] [address], [place] [address] Oct, [facility] [address] [id number] [address] [place] [address], [place] [address] Oct, [facility] [address] [id number] [address] [place] [address], [place] [address] Oct, [facility] [address] [id number] [address] [place] [address], [place] [address] Oct, [facility] [address] [id number] [address] [place] [address], [place] [address] Oct, [facility] [address] [id number] [address] [place] [address], [place] [address] Oct, [facility] [address] [id number] [address] [place] [address], [place] [address] Oct, [facility] [address] [id number] [address] [place] [address], [place] [address] Aug, [facility] [address] [id number] [address] [place] [address], [place] [address] Aug, [facility] [address] [id number] [address] [place] [address], [place] [address] Aug, [facility] [address] [id number] [address] [place] [address], [place] [address] 11 Aug, 2013 [facility] [address] [id number] [address] [place] [address], [place] [address] 05 Aug, 2013 [facility] [address] [id number] [address] [place] [address], [place] [address] 05 Aug, 2013 [facility] [address] [id number] [address] [place] [address], [place] [address] 04 Aug, 2013 [facility] [address] [id number] [address] [place] [address], [place] [address] Aug, [facility] [address] [id number] [address] [place] [address], [place] [address] Aug, [facility] [address] [id number] [address] [place] [address], [place] [address] 24 Aug, 2013 [facility] [address] [id number] [address] [place] [address], [place] [address] 24 Aug, 2013 [facility] [address] [id number] [address] [place] [address], [place] [address] Aug, [facility] [address] [id number] [address] [place] [address], [place] [address] Aug, [facility] [address] [id number] [address] [place] [address], [place] [address] 20 Aug, 2013 [facility] [address] [id number] [address] [place] [address], [place] [address] 14 Aug, 2013 [facility] [address] [id number] [address] [place] [address], [place] [address] Aug, [facility] [address] [id number] [address] [place] [address], [place] [address] 14 Aug, 2013 [facility] [address] [id number] [address] [place] [address], [place] [address] 14 Aug, 2013 [facility] [address] [id number] [address] [place] [address], [place] [address] 07 Aug, 2013 [facility] [address] [id number] [address] [place] [address], [place] [address] 07 Aug, 2013 [facility] [address] [id number] [address] [place] [address], [place] [address] 06 Aug, 2013 [facility] [address] [id number] [address] [place] [address], [place] [address] Aug, [facility] [address] [id number] [address] [place] [address], [place] [address] Aug, [facility] [address] [id number] [address] [place] [address], [place] [address] Aug, [facility] [address] [id number] [address] [place] [address], [place] [address] Aug, [facility] [address] [id number] [address] [place] [address], [place] [address] Jul, [facility] [address] [id number] [address] [place] [address], [place] [address] Jul, [facility] [address] [id number] [address] [place] [address], [place] [address] Jul, [facility] [address] [id number] [address] [place] [address], [place] [address] Jul, [facility] [address] [id number] [address] [place] [address], [place] [address] Jul, [facility] [address] [id number] [address] [place] [address], [place] [address] Jul, [facility] [address] [id number] [address] [place] [address], [place] [address] Jul, [facility] [address] [id number] [address] [place] [address], [place] [address] Jul, [facility] [address] [id number] [address] [place] [address], [place] [address] Jul, [facility] [address] [id number] [address] [place] [address], [place] [address] Jul, [facility] [address] [id number] [address] [place] [address], [place] [address] Jul, [facility] [address] [id number] [address] [place] [address], [place] [address] Jul, [facility] [address] [id number] [address] [place] [address], [place] [address] Jul, [facility] [address] [id number] [address] [place] [address], [place] [address] Jul, [facility] [address] [id number] [address] [place] [address], [place] [address] Jul, [facility] [address] [id number] [address] [place] [address], [place] [address] Jul, [facility] [address] [id number] [address] [place] [address], [place] [address] Jul, [facility] [address] [id number] [address] [place] [address], [place] [address] Jul, [facility] [address] [id number] [address] [place] [address], [place] [address] Jul, [facility] [address] [id number] [address] [place] [address], [place] [address] Jul, [facility] [address] [id number] [address] [place] [address], [place] [address] Jun, [facility] [address] [id number] [address] [place] [address], [place] [address] Jun, [facility] [address] [id number] [address] [place] [address], [place] [address] Jun, [facility] [address] [id number] [address] [place] [address], [place] [address] Jun, [facility] [address] [id number] [address] [place] [address], [place] [address] Jun, [facility] [address] [id number] [address] [place] [address], [place] [address] Jun, [facility] [address] [id number] [address] [place] [address], [place] [address] Jun, [facility] [address] [id number] [address] [place] [address], [place] [address] Jun, [facility] [address] [id number] [address] [place] [address], [place] [address] Jun, [facility] [address] [id number] [address] [place] [address], [place] [address] Jun, [facility] [address] [id number] [address] [place] [address], [place] [address] Jun, [facility] [address] [id number] [address] [place] [address], [place] [address] Jun, [facility] [address] [id number] [address] [place] [address], [place] [address] Jun, [facility] [address] [id number] [address] [place] [address], [place] [address] Jun, [facility] [address] [id number] [address] [place] [address], [place] [address] Jun, [facility] [address] [id number] [address] [place] [address], [place] [address] 18 Jun, 2013 [facility] [address] [id number] [address] [place] [address], [place] [address] 18 Jun, 2013 [facility] [address] [id number] [address] [place] [address], [place] [address] 17 Jun, 2013 [facility] [address] [id number] [address] [place] [address], [place] [address] 17 Jun, 2013 [facility] [address] [id number] [address] [place] [address], [place] [address] 13 Jun, 2013 [facility] [address] [id number] [address] [place] [address], [place] [address] Jun, [facility] [address] [id number] [address] [place] [address], [place] [address] Jun, [facility] [address] [id number] [address] [place] [address], [place] [address] Jun, [facility] [address] [id number] [address] [place] [address], [place] [address] Jun, [facility] [address] [id number] [address] [place] [address], [place] [address] Jun, [facility] [address] [id number] [address] [place] [address], [place] [address] Jun, [facility] [address] [id number] [address] [place] [address], [place] [address] Jun, [facility] [address] [id number] [address] [place] [address], [place] [address] May, [facility] [address] [id number] [address] [place] [address], [place] [address] May, [facility] [address] [id number] [address] [place] [address], [place] [address] May, [facility] [address] [id number] [address] [place] [address], [place] [address] May, [facility] [address] [id number] [address] [place] [address], [place] [address] May, [facility] [address] [id number] [address] [place] [address], [place] [address] May, [facility] [address] [id number] [address] [place] [address], [place] [address] Apr, [facility] [address] [id number] [address] [place] [address], [place] [address] Apr, [facility] [address] [id number] [address] [place] [address], [place] [address] Apr, [facility] [address] [id number] [address] [place] [address], [place] [address] 30 Apr, 2013 [facility] [address] [id number] [address] [place] [address], [place] [address] Apr, [facility] [address] [id number] [address] [place] [address], [place] [address] 15 Apr, 2013 [facility] [address] [id number] [address] [place] [address], [place] [address] 15 Apr, 2013 [facility] [address] [id number] [address] [place] [address], [place] [address] Apr, [facility] [address] [id number] [address] [place] [address], [place] [address] 26 Mar, 2013 [facility] [address] [id number] [address] [place] [address], [place] [address] 24 Mar, 2013 [facility] [address] [id number] [address] [place] [address], [place] [address] 17 Mar, 2013 [facility] [address] [id number] [address] [place] [address], [place] [address] 17 Mar, 2013 [facility] [address] [id number] [address] [place] [address], [place] [address] 11 Mar, 2013 [facility] [address] [id number] [address] [place] [address], [place] [address] 10 Mar, 2013 [facility] [address] [id number] [address] [place] [address] 05 Mar, 2013 [facility] [address] [id number] [address] [place] [address], [place] [address] 04 Mar, 2013 [facility] [address] [id number] [address] [place] [address], [place] [address] 20 Jan, 2013 [facility] [address] [id number] [address] [place] [address], [place] [address] Jan, [facility] [address] [id number] [address] [place] [address], [place] [address] 14 Jan, 2013 [facility] [address] [id number] [address] [place] [address], [place] [address] 12 Jan, 2013 [facility] [address] [id number] [address] [place] [address], [place] [address] Jan, [facility] [address] [id number] [address] [place] [address], [place] [address] 05 Jan, 2013 [facility] [address] [id number] [address] [place] [address], [place] [address] 31 Dec, 2012 [facility] [address] [id number] [address] [place] [address], [place] [address] 24 Dec, 2012 [facility] [address] [id number] [address] [place] [address], [place] [address] Dec, [facility] [address] [id number] [address] [place] [address], [place] [address] Dec, [facility] [address] [id number] [address] [place] [address], [place] [address] 18 Dec, 2012 [facility] [address] [id number] [address] [place] [address], [place] [address] 17 Dec, 2012 [facility] [address] [id number] [address] [place] [address], [place] [address] 16 Dec, 2012 [facility] [address] [id number] [address] [place] [address], [place] [address] 16 Dec, 2012 [facility] [address] [id number] [address] [place] [address], [place] [address] 15 Dec, 2012 [facility] [address] [id number] [address] [place] [address], [place] [address] Dec, [facility] [address] [id number] [address] [place] [address], [place] [address] Dec, [facility] [address] [id number] [address] [place] [address], [place] [address] Dec, [facility] [address] [id number] [address] [place] [address], [place] [address] Dec, [facility] [address] [id number] [address] [place] [address], [place] [address] Dec, [facility] [address] [id number] [address] [place] [address], [place] [address] Dec, [facility] [address] [id number] [address] [place] [address], [place] [address] Dec, [facility] [address] [id number] [address] [place] [address], [place] [address] October, [facility] [address] [id number] [address] [place] [address], [place] [address] October, [facility] [address] [id number] [address] [place] [address], [place] [address] October, [facility] [address] [id number] [address] [place] [address], [place] [address] October, [facility] [address] [id number] [address] [place] [address], [place] [address] October, [facility] [address] [id number] [address] [place] [address], [place] [address] October, [facility] [address] [id number] [address] [place] [address], [place] [address] October, [facility] [address] [id number] [address] [place] [address], [place] [address] Oct, [facility] [address] [id number] [address] [place] [address], [place] [address] Oct, [facility] [address] [id number] [address] [place] [address], [place] [address] Oct, [facility] [address] [id number] [address] [place] [address], [place] [address] Oct, [facility] [address] [id number] [address] [place] [address], [place] [address] 19 Oct, 2012 [facility] [address] [id number] [address] [place] [address], [place] [address] 18 Oct, 2012 [facility] [address] [id number] [address] [place] [address], [place] [address] 17 Oct, 2012 [facility] [address] [id number] [address] [place] [address], [place] [address] 15 Oct, 2012 [facility] [address] [id number] [address] [place] [address], [place] [address] 12 Oct, 2012 [facility] [address] [id number] [address] [place] [address], [place] [address] Oct, [facility] [address] [id number] [address] [place] [address], [place] [address] Oct, [facility] [address] [id number] [address] [place] [address], [place] [address] Oct, [facility] [address] [id number] [address] [place] [address], [place] [address] Aug, [facility] [address] [id number] [address] [place] [address], [place] [address] Aug, [facility] [address] [id number] [address] [place] [address], [place] [address] Aug, [facility] [address] [id number] [address] [place] [address], [place] [address] Aug, [facility] [address] [id number] [address] [place] [address], [place] [address] 05 Aug, 2012 [facility] [address] [id number] [address] [place] [address], [place] [address] 05 Aug, 2012 [facility] [address] [id number] [address] [place] [address], [place] [address] 20 Aug, 2012 [facility] [address] [id number] [address] [place] [address], [place] [address] 14 Aug, 2012 [facility] [address] [id number] [address] [place] [address], [place] [address] 12 Aug, 2012 [facility] [address] [id number] [address] [place] [address], [place] [address] 11 Aug, 2012 [facility] [address] [id number] [address] [place] [address], [place] [address] 29 Jul, 2012 [facility] [address] [id number] [address] [place] [address], [place] [address] 15 Jul, 2012 [facility] [address] [id number] [address] [place] [address], [place] [address] 08 Jul, 2012 [facility] [address] [id number] [address] [place] [address], [place] [address] 20 Jun, 2012 [facility] [address] [id number] [address] [place] [address], [place] [address] 18 Jun, 2012 [facility] [address] [id number] [address] [place] [address], [place] [address] 18 Jun, 2012 [facility] [address] [id number] [address] [place] [address], [place] [address] 18 Jun, 2012 [facility] [address] [id number] [address] [place] [address], [place] [address] 18 Jun, 2012 [facility] [address] [id number] [address] [place] [address], [place] [address] 14 Jun, 2012 [facility] [address] [id number] [address] [place] [address], [place] [address] 14 Jun, 2012 [facility] [address] [id number] [address] [place] [address], [place] [address] 13 Jun, 2012 [facility] [address] [id number] [address] [place] [address], [place] [address] 13 Jun, 2012 [facility] [address] [id number] [address] [place] [address], [place] [address] 11 Jun, 2012 [facility] [address] [id number] [address] [place] [address], [place] [address] Jun, [facility] [address] [id number] [address] [place] [address], [place] [address] Jun, [facility] [address] [id number] [address] [place] [address], [place] [address] Jun, [facility] [address] [id number] [address] [place] [address], [place] [address] Jun, [facility] [address] [id number] [address] [place] [address], [place] [address] Jun, [facility] [address] [id number] [address] [place] [address], [place] [address] Jun, [facility] [address] [id number] [address] [place] [address], [place] [address] Jun, [facility] [address] [id number] [address] [place] [address], [place] [address] Jun, [facility] [address] [id number] [address] [place] [address], [place] [address] Jun, [facility] [address] [id number] [address] [place] [address], [place] [address] Jun, [facility] [address] [id number] [address] [place] [address], [place] [address] Jun, [facility] [address] [id number] [address] [place] [address], [place] [address] Jun, [facility] [address] [id number] [address] [place] [address], [place] [address] Jun, [facility] [address] [id number] [address] [place] [address], [place] [address] May, [facility] [address] [id number] [address] [place] [address], [place] [address] May, [facility] [address] [id number] [address] [place] [address], [place] [address] May, [facility] [address] [id number] [address] [place] [address], [place] [address] 08 May, 2012 [facility] [address] [id number] [address] [place] [address], [place] [address] May, [facility] [address] [id number] [address] [place] [address], [place] [address] May, [facility] [address] [id number] [address] [place] [address], [place] [address] May, [facility] [address] [id number] [address] [place] [address], [place] [address] May, [facility] [address] [id number] [address] [place] [address], [place] [address] Apr, [facility] [address] [id number] [address] [place] [address], [place] [address] Apr, [facility] [address] [id number] [address] [place] [address], [place] [address] Apr, [facility] [address] [id number] [address] [place] [address], [place] [address] Apr, [facility] [address] [id number] [address] [place] [address], [place] [address] Apr, [facility] [address] [id number] [address] [place] [address], [place] [address] Apr, [facility] [address] [id number] [address] [place] [address], [place] [address] Apr, [facility] [address] [id number] [address] [place] [address] Apr, [facility] [address] [id number] [address] [place] [address], [place] [address] Apr, [facility] [address] [id number] [address] [place] [address], [place] [address] Apr, [facility] [address] [id number] [address] [place] [address] Apr, [facility] [address] [id number] [address] [place] [address], [place] [address] Apr, [facility] [address] [id number] [address] [place] [address], [place] [address] 19 Mar, 2012 [facility] [address] [id number] [address] [place] [address], [place] [address] 18 Mar, 2012 [facility] [address] [id number] [address] [place] [address], [place] [address] 12 Mar, 2012 [facility] [address] [id number] [address] [place] [address], [place] [address] Mar, [facility] [address] [id number] [address] [place] [address], [place] [id number] Mar, [facility] [address] [id number] [address] [place] [address], [place] [id number] Mar, [facility] [address] [id number] [address] [place] [address], [place] [address] 04 Mar, 2012 [facility] [address] [id number] [address] [place] [address], [place] [address] 29 Feb, 2012 [facility] [address] [id number] [address] [place] [address], [place] [address] Jan, [facility] [address] [id number] [address] [place] [id number] Jan, [facility] [address] [id number] [address] [place] [id number] Jan, [facility] [address] [id number] [address] [place] [address], [place] [address] 17 Feb, 2012 [facility] [address] [id number] [address] [place] [address], [place] [address] Jan, [facility] [address] [id number] [address] [place] [address], [place] [address] Jan, [facility] [address] [id number] [address] [place] [address], [place] [address] Jan, [facility] [address] [id number] [address] [place] [address], [place] [address] Jan, [facility] [address] [id number] [address] [place] [address], [place] [address] Jan, [facility] [address] [id number] [address] [place] [address], [place] [address] Jan, [facility] [address] [id number] [address] [place] [address], [place] [address] Dec, [facility] [address] [id number] [address] [place] [address], [place] [address] Dec, [facility] [address] [id number] [address] [place] [address], [place] [address] Dec, [facility] [address] [id number] [address] [place] [address], [place] [address] Dec, [facility] [address] [id number] [address] [place] [address], [place] [address] Dec, [facility] [address] [id number] [address] [place] [address], [place] [address] Dec, [facility] [address] [id number] [address] [place] [address], [place] [address] Dec, [facility] [address] [id number] [address] [place] [address], [place] [address] 17 Jan, 2012 [facility] [address] [id number] [address] [place] [address], [place] [address] 16 Jan, 2012 [facility] [address] [id number] [address] [place] [address], [place] [address] Dec, [facility] [address] [id number] [address] [place] [address], [place] [address] Dec, [facility] [address] [id number] [address] [place] [address], [place] [address] Dec, [facility] [address] [id number] [address] [place] [address], [place] [address] 27 Dec, 2011 [facility] [address] [id number] [address] [place] [address], [place] [address] 27 Dec, 2011 [facility] [address] [id number] [address] [place] [address], [place] [address] 25 Dec, 2011 [facility] [address] [id number] [address] [place] [address], [place] [address] 18 Dec, 2011 [facility] [address] [id number] [address] [place] [address], [place] [address] 15 Dec, 2011 [facility] [address] [id number] [address] [place] [address], [place] [address] 06 Dec, 2011 [facility] [address] [id number] [address] [place] [address], [place] [address] 05 Dec, 2011 [facility] [address] [id number] [address] [place] [address], [place] [address] October, [facility] [address] [id number] [address] [place] [address], [place] [address] October, [facility] [address] [id number] [address] [place] [address], [place] [address] October, [facility] [address] [id number] [address] [place] [address], [place] [address] October, [facility] [address] [id number] [address] [place] [address], [place] [address] October, [facility] [address] [id number] [address] [place] [address], [place] [address] October, [facility] [address] [id number] [address] [place] [address], [place] [address] Oct, [facility] [address] [id number] [address] [place] [address], [place] [address] Oct, [facility] [address] [id number] [address] [place] [address], [place] [address] Oct, [facility] [address] [id number] [address] [place] [address], [place] [address] Oct, [facility] [address] [id number] [address] [place] [address], [place] [address] Oct, [facility] [address] [id number] [address] [place] [address], [place] [address] Oct, [facility] [address] [id number] [address] [place] [address], [place] [address] Oct, [facility] [address] [id number] [address] [place] [address], [place] [address] Aug, [facility] [address] [id number] [address] [place] [address], [place] [address] 29 Sep, 2011 [facility] [address] [id number] [address] [place] [address], [place] [address] Aug, [facility] [address] [id number] [address] [place] [address], [place] [address] Aug, [facility] [address] [id number] [address] [place] [address], [place] [address] Aug, [facility] [address] [id number] [address] [place] [address], [place] [address] Aug, [facility] [address] [id number] [address] [place] [address], [place] [address] Aug, [facility] [address] [id number] [address] [place] [address], [place] [address] Aug, [facility] [address] [id number] [address] [place] [address], [place] [address] Aug, [facility] [address] [id number] [address] [place] [address], [place] [address] Jul, [facility] [address] [id number] [address] [place] [address], [place] [address] Jul, [facility] [address] [id number] [address] [place] [address], [place] [address] Jul, [facility] [address] [id number] [address] [place] [address], [place] [address] Jul, [facility] [address] [id number] [address] [place] [address], [place] [address] Jun, [facility] [address] [id number] [address] [place] [address], [place] [address] Jun, [facility] [address] [id number] [address] [place] [address], [place] [address] May, [facility] [address] [id number] [address] [place] [address], [place] [address] May, [facility] [address] [id number] [address] [place] [address], [place] [address] May, [facility] [address] [id number] [address] [place] [address], [place] [address] May, [facility] [address] [id number] [address] [place] [address], [place] [address] May, [facility] [address] [id number] [address] [place] [address], [place] [address] Apr, [facility] [address] [id number] [address] [place] [address], [place] [address] Apr, [facility] [address] [id number] [address] [place] [address], [place] [address] Apr, [facility] [address] [id number] [address] [place] [address], [place] [address] Jan, [facility] [address] [id number] [address] [place] [address], [place] [address] Dec, [facility] [address] [id number] [address] [place] [address], [place] [address] October, [facility] [address] [id number] [address] [place] [address], [place] [address] Jun, [facility] [address] [id number] [address] [place] [address] Apr, [facility] [address] [facility] [id number] [address] [place] [address] Apr, [facility] [address] [facility] [id number] [address] [place] [address] Apr, [facility] [address] [facility] [id number] [address] [place] [address] Jun, IMMUNIZATIONS No Known Immunizations SOCIAL HISTORY [...]
--- OUTSIDE RECORDS SUMMARY | 2020-01-25 12:34 | XMS REPORT ---
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 Name Role Phone MELISA Iraheta Unavailable PROBLEMS Type Condition ICD9-CM Code [id number] Code Onset Dates Condition S tatus SNOMED Code Problem Attention deficit R41.840 Active 76 595053 Problem Chronic hepatitis C without hepatic coma B18.2 Active 329099279 Problem Cannabis abuse F12.10 Active 67660 009 Problem Bipolar disorder, in partial remission, most rec ent episode hypomanic F31.71 Active 152791385 Problem Attention deficit hyperactivity disorder (ADHD), combi luciano type F90.2 Active 14137971 Problem Bipolar 1 disorder F31.9 Active 3 62274823 Problem H/O laminectomy Z98.89 Active 1616 47542 Problem Other chronic pain G89.29 Active 8 6952608 Problem Anxiety disorder, unspecified type F41.9 Active 966052164 ALLERGIES No Information ENCOUNTERS Encounter Location Date Diagnosis [facility] [address] [facility] [id number] [place] [address] Mar, [facility] [address] [facility] [id number] [place] [address] Dec, Other chronic pain G89.29 an d Low back pain M54.5 [facility] [address] [facility] [id number] [place] [address] October, [facility] [address] [facility] [id number] [place] [address] October, [facility] [address] [facility] [id number] [place] [address] October, [facility] [address] [facility] [id number] [place] [address] October, Other chronic pain G89.29 an d Chronic hepatitis C without hepatic coma B18.2 [facility] [address] [id number] [address] [place] [address] Aug, Bipolar disorder, in partial remission, most recent episode hypomanic F31.71 ; Attention deficit hyperactivity disorder (ADHD), combined type F90.2 and Anxiety disorder, unspecified type F41.9 [facility] [address] [id number] [address] [place] [address] Aug, [facility] [address] [id number] [address] [place] [address] Aug, Bipolar disorder, in partial remission, most recent episode hypomanic F31.71 [facility] [address] [id number] [address] [place] [address] Aug, [facility] [address] [id number] [address] [place] [address] Aug, Bipolar disorder, in partial remission, most recent episode hypomanic F31.71 [facility] [address] [id number] [address] [place] [address] Aug, Bipolar disorder, in partial remission, most recent episode hypomanic F31.71 ; Attention deficit hyperactivity disorder (ADHD), combined type F90.2 and Anxiety disorder, unspecified type F41.9 [facility] [address] [id number] [address] [place] [address] Aug, Low back pain M54.5 and Pain in left wrist M25.532 [facility] [address] [id number] [address] [place] [address] Aug, [facility] [address] [facility] [id number] [place] [address] Jun, [facility] [address] [id number] [address] [place] [address] Apr, Bipolar disorder, in partial remission, most recent episode hypomanic F31.71 [facility] [address] [id number] [address] [place] [address] Apr, [facility] [address] [facility] [id number] [place] [address] Apr, Bipolar disorder, in partial remission, most recent episode hypomanic F31.71 ; Attention deficit hyperactivity disorder (ADHD), combined type F90.2 ; Anxiety disorder, unspecified type F41.9 and 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 frame 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 Z79.899 [facility] [address] [id number] [address] [place] [address] Apr, Bipolar disorder, in partial remission, most recent episode hypomanic F31.71 [facility] [address] [facility] [id number] [place] [address] Apr, Bipolar disorder, in partial remission, most recent episode hypomanic F31.71 [facility] [address] [facility] [id number] [place] [address] Mar, [facility] [id number] [facility] [id number] [place] [address] Mar, Bipolar disorder, in partial remission, most recent episode hypomanic F31.71 ; Encounter for immunization Z23 and Low back pain M54.5 [facility] [address] [id number] [address] [place] [address] 17 Mar, 2018 Bipolar disorder, in partial remission, most recent episode hypomanic F31.71 [facility] [address] [facility] [id number] [place] [address] Mar, Bipolar disorder, in partial remission, most recent episode hypomanic F31.71 [facility] [address] [facility] [id number] [place] [address] Jan, Bipolar disorder, in partial remission, most recent episode hypomanic F31.71 [facility] [address] [facility] [id number] [place] [address] Jan, Bipolar disorder, in partial remission, most recent episode hypomanic F31.71 [facility] [address] [id number] [address] [place] [address] Dec, Bipolar disorder, in partial remission, most recent episode hypomanic F31.71 [facility] [address] [id number] [address] [place] [address] Dec, Bipolar disorder, in partial remission, most recent episode hypomanic F31.71 ; Attention deficit hyperactivity disorder (ADHD), combined type F90.2 ; Anxiety disorder, unspecified type F41.9 and Other fpc (current) 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 Z79.899 [facility] [address] [id number] [address] [place] [address] Dec, Bipolar disorder, in partial remission, most recent episode hypomanic F31.71 [facility] [address] [id number] [address] [place] [address] Dec, Bipolar disorder, in partial remission, most recent episode hypomanic F31.71 [facility] [address] [id number] [address] [place] [address] October, Bipolar disorder, in partial remission, most recent episode hypomanic F31.71 [facility] [address] [id number] [address] [place] [address] October, [facility] [address] [facility] [id number] [place] [address] October, [facility] [address] [facility] [id number] [place] [address] Oct, Bipolar disorder, in partial remission, most recent episode hypomanic F31.71 ; Attention deficit hyperactivity disorder (ADHD), combined type F90.2 ; Anxiety disorder, unspecified type F41.9 and Encounter for drug screening Z02.83 [facility] [address] [id number] [address] [place] [address] Oct, Bipolar disorder, in partial remission, most recent episode hypomanic F31.71 [facility] [address] [facility] [id number] [place] [address] Oct, Bipolar disorder, in partial remission, most recent episode hypomanic F31.71 [facility] [address] [id number] [address] [place] [address] Aug, Bipolar disorder, in partial remission, most recent episode hypomanic F31.71 [facility] [address] [id number] [address] [place] [address] Aug, Bipolar disorder, in partial remission, most recent episode hypomanic F31.71 [facility] [address] [id number] [address] [place] [address] Aug, Bipolar disorder, in partial remission, most recent episode hypomanic F31.71 [facility] [address] [facility] [id number] [place] [address] Jul, Bipolar disorder, in partial remission, most recent episode hypomanic F31.71 ; Attention deficit hyperactivity disorder (ADHD), combined type F90.2 and Anxiety disorder, unspecified type F41.9 [facility] [address] [facility] [id number] [place] [address] Jul, Bipolar disorder, in partial remission, most recent episode hypomanic F31.71 [facility] [address] [facility] [id number] [place] [address] Jun, Bipolar disorder, in partial remission, most recent episode hypomanic F31.71 [facility] [address] [facility] [id number] [place] [address] May, Bipolar disorder, in partial remission, most recent episode hypomanic F31.71 [facility] [address] [id number] [address] [place] [address] May, Bipolar disorder, in partial remission, most recent episode hypomanic F31.71 [facility] [address] [id number] [address] [place] [address] Apr, [facility] [address] [facility] [id number] [place] [address] Apr, Bipolar disorder, in partial remission, most recent episode hypomanic F31.71 ; Attention deficit hyperactivity disorder (ADHD), combined type F90.2 ; Anxiety disorder, unspecified type F41.9 and Cannabis abuse F12.10 [facility] [address] [id number] [address] [place] [address] Apr, Attention deficit hyperactiv ity disorder (ADHD), combined type F90.2 [facility] [address] [id number] [address] [place] [address] Mar, Attention deficit hyperactiv ity disorder (ADHD), combined type F90.2 [facility] [address] [id number] [address] [place] [address] Mar, Anxiety disorder, unspecifie d type F41.9 [facility] [address] [id number] [address] [place] [address] Jan, Attention deficit hyperactiv ity disorder (ADHD), combined type F90.2 [facility] [address] [id number] [address] [place] [address] Jan, Anxiety disorder, unspecifie d type F41.9 [facility] [address] [facility] [id number] [place] [address] Jan, Other chronic pain G89.29 ; Chronic hepatitis C without hepatic coma B18.2 and Bipolar 1 disorder F31.9 [facility] [address] [facility] [id number] [place] [address] Dec, Attention deficit hyperactiv ity disorder (ADHD), combined type F90.2 [facility] [address] [id number] [address] [place] [address] Dec, Bipolar disorder, in partial remission, most recent episode hypomanic F31.71 ; Attention deficit hyperactivity disorder (ADHD), combined type F90.2 and Anxiety disorder, unspecified type F41.9 [facility] [address] [id number] [address] [place] [address] 28 [place], 2017 Bipolar disorder, in partial remission, most recent episode hypomanic F31.71 ; Attention deficit hyperactivity disorder (ADHD), combined type F90.2 and Anxiety disorder, unspecified type F41.9 [facility] [address] [id number] [address] [place] [address] Dec, Bipolar 1 disorder F31.9 and Attention deficit R41.840 [facility] [address] [id number] [address] [place] [address] Oct, Other chronic pain G89.29 ; Alopecia L65.9 and Screening, lipid Z13.220 [facility] [address] [id number] [address] [place] [address] Oct, [facility] [address] [id number] [address] [place] [address] Aug, [facility] [address] [id number] [address] [place] [address] Aug, Eustachian tube dysfunction, right H69.81 ; Vertigo R42 and Other chronic pain G89.29 [facility] [address] [id number] [address] [place] [address] Aug, [facility] [address] [id number] [address] [place] [address] Jun, [facility] [address] [id number] [address] [place] [address] Jun, Low back pain M54.5 and Othe r chronic pain G89.29 [facility] [address] [id number] [address] [place] [address] Jun, [facility] [address] [id number] [address] [place] [address] May, [facility] [address] [id number] [address] [place] [address] Jan, [facility] [address] [id number] [address] [place] [address] Dec, [facility] [address] [id number] [address] [place] [address] Dec, [facility] [address] [id number] [address] [place] [address] Jun, [facility] [address] [facility] [id number] [place] [address] Apr, Eustachian tube dysfunction, unspecified laterality H69.80 ; Hot flashes N95.1 and Encounter for immunization Z23 [facility] [address] [id number] [address] [place] [address] Jan, [facility] [address] [id number] [address] [place] [address] Jan, [facility] [address] [facility] [id number] [place] [address] Jan, [facility] [address] [facility] [id number] [place] [address] Jan, [facility] [address] [facility] [id number] [place] [address] Jan, Encounter to establish care V65.8 ; Bipolar 1 disorder 296.7 ; Abdominal pain 789.00 ; Constipation 564.00 ; Hard of hearing 389.9 and Drug abuse 305.90 [facility] [address] [id number] [address] [place] [address] Dec, [facility] [address] [id number] [address] [place] [address] October, [facility] [address] [facility] [id number] [place] [address] October, [facility] [address] [facility] [id number] [place] [address] Oct, [facility] [address] [facility] [id number] [place] [address] Oct, [facility] [address] [id number] [address] [place] [address], [place] [address] Oct, [facility] [address] [id number] [address] [place] [address], [place] [address] Aug, [facility] [address] [id number] [address] [place] [address], [place] [address] Aug, [facility] [address] [id number] [address] [place] [address], [place] [address] Aug, [facility] [address] [id number] [address] [place] [address], [place] [address] Aug, 2014 [facility] [address] [id number] [address] [place] [address], [place] [address] Aug, 2014 [facility] [address] [id number] [address] [place] [address], [place] [address] Aug, 2014 [facility] [address] [id number] [address] [place] [address], [place] [address] Aug, 2014 [facility] [address] [id number] [address] [place] [address], [place] [address] Aug, 2014 [facility] [address] [id number] [address] [place] [address], [place] [address] Aug, 2014 [facility] [address] [id number] [address] [place] [address], [place] [address] Aug, 2014 [facility] [address] [id number] [address] [place] [address], [place] [address] Aug, 2014 [facility] [address] [id number] [address] [place] [address], [place] [address] Aug, 2014 [facility] [address] [id number] [address] [place] [address], [place] [address] Aug, 2014 [facility] [address] [id number] [address] [place] [address] Aug, 2014 [facility] [address] [id number] [address] [place] [address] Aug, [facility] [address] [id number] [address] [place] [address], [place] [address] Jul, [facility] [address] [id number] [address] [place] [address], [place] [address] Jul, [facility] [address] [id number] [address] [place] [address], [place] [address] Jul, [facility] [address] [id number] [address] [place] [address], [place] [address] Jul, [facility] [address] [id number] [address] [place] [address], [place] [address] Jul, [facility] [address] [id number] [address] [place] [address], [place] [address] Jul, [facility] [address] [id number] [address] [place] [address], [place] [address] Jul, [facility] [address] [id number] [address] [place] [address], [place] [address] Jul, [facility] [address] [id number] [address] [place] [address], [place] [address] Jun, [facility] [address] [id number] [address] [place] [address], [place] [address] Jun, [facility] [address] [id number] [address] [place] [address], [place] [address] Jun, [facility] [address] [id number] [address] [place] [address], [place] [address] 29 Jun, 2014 [facility] [address] [id number] [address] [place] [address], [place] [address] 18 Jun, 2014 [facility] [address] [id number] [address] [place] [address], [place] [address] Jun, [facility] [address] [id number] [address] [place] [address], [place] [address] Jun, [facility] [address] [id number] [address] [place] [address], [place] [address] Jun, [facility] [address] [id number] [address] [place] [address], [place] [address] Jun, [facility] [address] [id number] [address] [place] [address], [place] [address] Jun, [facility] [address] [id number] [address] [place] [address], [place] [address] Jun, [facility] [address] [id number] [address] [place] [address], [place] [address] May, [facility] [address] [id number] [address] [place] [address], [place] [address] May, [facility] [address] [id number] [address] [place] [address], [place] [address] May, [facility] [address] [id number] [address] [place] [address], [place] [address] May, [facility] [address] [id number] [address] [place] [address], [place] [address] May, [facility] [address] [id number] [address] [place] [address], [place] [address] May, [facility] [address] [id number] [address] [place] [address], [place] [address] May, [facility] [address] [id number] [address] [place] [address], [place] [address] Apr, [facility] [address] [id number] [address] [place] [address], [place] [address] Apr, [facility] [address] [id number] [address] [place] [address], [place] [address] Apr, [facility] [address] [id number] [address] [place] [address], [place] [address] Apr, [facility] [address] [id number] [address] [place] [address], [place] [address] Apr, [facility] [address] [id number] [address] [place] [address], [place] [address] Apr, [facility] [address] [id number] [address] [place] [address], [place] [address] Mar, [facility] [address] [id number] [address] [place] [address], [place] [address] Mar, [facility] [address] [id number] [address] [place] [address], [place] [address] Mar, [facility] [address] [id number] [address] [place] [address], [place] [address] Mar, [facility] [address] [id number] [address] [place] [address], [place] [address] Mar, [facility] [address] [id number] [address] [place] [address], [place] [address] Mar, [facility] [address] [id number] [address] [place] [address], [place] [address] Jan, [facility] [address] [id number] [address] [place] [address], [place] [address] Jan, [facility] [address] [id number] [address] [place] [address], [place] [address] Jan, [facility] [address] [id number] [address] [place] [address], [place] [address] Jan, [facility] [address] [id number] [address] [place] [address], [place] [address] Dec, [facility] [address] [id number] [address] [place] [address], [place] [address] Dec, [facility] [address] [id number] [address] [place] [address], [place] [address] Dec, [facility] [address] [id number] [address] [place] [address], [place] [address] Dec, [facility] [address] [id number] [address] [place] [address], [place] [address] Dec, [facility] [address] [id number] [address] [place] [address], [place] [address] Dec, [facility] [address] [id number] [address] [place] [address], [place] [address] Dec, [facility] [address] [id number] [address] [place] [address], [place] [address] Dec, [facility] [address] [id number] [address] [place] [address], [place] [address] Dec, [facility] [address] [id number] [address] [place] [address], [place] [address] Dec, [facility] [address] [id number] [address] [place] [address], [place] [address] Dec, [facility] [address] [id number] [address] [place] [address], [place] [address] Dec, [facility] [address] [id number] [address] [place] [address], [place] [address] October, [facility] [address] [id number] [address] [place] [address], [place] [address] October, [facility] [address] [id number] [address] [place] [address], [place] [address] October, [facility] [address] [id number] [address] [place] [address], [place] [address] October, [facility] [address] [id number] [address] [place] [address], [place] [address] October, [facility] [address] [address] [id number] [address] [place] [address], [place] [address] October, [facility] [address] [id number] [address] [place] [address], [place] [address] Oct, [facility] [address] [id number] [address] [place] [address], [place] [address] Oct, [facility] [address] [id number] [facility] [place] [address] Oct, [facility] [address] [id number] [facility] [place] [address] Oct, [facility] [address] [id number] [facility] [place] [address] Oct, [facility] [address] [id number] [address] [place] [address], [place] [address] Oct, [facility] [address] [id number] [facility] [place] [address] Oct, [facility] [address] [id number] [address] [place] [address], [place] [address] Oct, [facility] [address] [id number] [address] [place] [address], [place] [address] Oct, [facility] [address] [id number] [address] [place] [address], [place] [address] Oct, [facility] [address] [id number] [address] [place] [address], [place] [address] Oct, [facility] [address] [id number] [address] [place] [address], [place] [address] Oct, [facility] [address] [id number] [address] [place] [address], [place] [address] Aug, [facility] [address] [id number] [address] [place] [address], [place] [address] Aug, [facility] [address] [id number] [address] [place] [address], [place] [address] Aug, [facility] [address] [id number] [address] [place] [address], [place] [address] Aug, [facility] [address] [id number] [address] [place] [address], [place] [address] Aug, [facility] [address] [id number] [address] [place] [address], [place] [address] Aug, [facility] [address] [id number] [facility] [place] [address] 04 Aug, 2013 [facility] [address] [id number] [address] [place] [address], [place] [address] Aug, [facility] [address] [id number] [address] [place] [address], [place] [address] Aug, [facility] [address] [id number] [address] [place] [address], [place] [address] 24 Aug, 2013 [facility] [address] [id number] [address] [place] [address], [place] [address] 24 Aug, 2013 [facility] [address] [id number] [address] [place] [address], [place] [address] Aug, [facility] [address] [id number] [address] [place] [address], [place] [address] Aug, [facility] [address] [id number] [address] [place] [address], [place] [address] 20 Aug, 2013 [facility] [address] [id number] [address] [place] [address], [place] [address] 14 Aug, 2013 [facility] [address] [id number] [address] [place] [address], [place] [address] 14 Aug, 2013 [facility] [address] [id number] [address] [place] [address], [place] [address] 14 Aug, 2013 [facility] [address] [id number] [address] [place] [address], [place] [address] 14 Aug, 2013 [facility] [address] [id number] [address] [place] [address], [place] [address] 07 Aug, 2013 [facility] [address] [id number] [address] [place] [address], [place] [address] 07 Aug, 2013 [facility] [address] [id number] [address] [place] [address], [place] [address] 06 Aug, 2013 [facility] [address] [id number] [address] [place] [address], [place] [address] Aug, [facility] [address] [id number] [address] [place] [address], [place] [address] Aug, [facility] [address] [id number] [address] [place] [address], [place] [address] Aug, [facility] [address] [id number] [address] [place] [address], [place] [address] Aug, [facility] [address] [id number] [address] [place] [address], [place] [address] Jul, [facility] [address] [id number] [address] [place] [address], [place] [address] Jul, [facility] [address] [id number] [address] [place] [address], [place] [address] Jul, [facility] [address] [id number] [address] [place] [address], [place] [address] Jul, [facility] [address] [id number] [address] [place] [address], [place] [address] Jul, [facility] [address] [id number] [address] [place] [address], [place] [address] Jul, [facility] [address] [id number] [address] [place] [address], [place] [address] Jul, [facility] [address] [id number] [address] [place] [address], [place] [address] Jul, [facility] [address] [id number] [address] [place] [address], [place] [address] Jul, [facility] [address] [id number] [address] [place] [address], [place] [address] Jul, [facility] [address] [id number] [address] [place] [address], [place] [address] Jul, [facility] [address] [id number] [address] [place] [address], [place] [address] Jul, [facility] [address] [id number] [address] [place] [address], [place] [address] Jul, [facility] [address] [id number] [address] [place] [address], [place] [address] Jul, [facility] [address] [id number] [address] [place] [address], [place] [address] Jul, [facility] [address] [id number] [address] [place] [address], [place] [address] Jul, [facility] [address] [id number] [address] [place] [address], [place] [address] Jul, [facility] [address] [id number] [address] [place] [address], [place] [address] Jul, [facility] [address] [id number] [address] [place] [address], [place] [address] Jul, [facility] [address] [id number] [address] [place] [address], [place] [address] Jul, [facility] [address] [id number] [address] [place] [address], [place] [address] Jun, [facility] [address] [id number] [address] [place] [address], [place] [address] Jun, [facility] [address] [id number] [address] [place] [address], [place] [address] 30 Jun, 2013 [facility] [address] [id number] [address] [place] [address], [place] [address] 30 Jun, 2013 [facility] [address] [id number] [address] [place] [address], [place] [address] Jun, [facility] [address] [id number] [address] [place] [address], [place] [address] Jun, [facility] [address] [id number] [address] [place] [address], [place] [address] Jun, [facility] [address] [id number] [address] [place] [address], [place] [address] Jun, [facility] [address] [id number] [address] [place] [address], [place] [address] Jun, [facility] [address] [id number] [address] [place] [address], [place] [address] Jun, [facility] [address] [id number] [address] [place] [address], [place] [address] Jun, [facility] [address] [id number] [address] [place] [address], [place] [address] Jun, [facility] [address] [id number] [address] [place] [address], [place] [address] Jun, [facility] [address] [id number] [address] [place] [address], [place] [address] Jun, [facility] [address] [id number] [address] [place] [address], [place] [address] Jun, [facility] [address] [id number] [address] [place] [address], [place] [address] Jun, [facility] [address] [id number] [address] [place] [address], [place] [address] Jun, [facility] [address] [id number] [address] [place] [address], [place] [address] 17 Jun, 2013 [facility] [address] [id number] [address] [place] [address], [place] [address] 17 Jun, 2013 [facility] [address] [id number] [address] [place] [address], [place] [address] 13 Jun, 2013 [facility] [address] [id number] [address] [place] [address], [place] [address] Jun, [facility] [address] [id number] [address] [place] [address], [place] [address] Jun, [facility] [address] [id number] [address] [place] [address], [place] [address] Jun, [facility] [address] [id number] [address] [place] [address], [place] [address] Jun, [facility] [address] [id number] [address] [place] [address], [place] [address] Jun, [facility] [address] [id number] [address] [place] [address], [place] [address] Jun, [facility] [address] [id number] [address] [place] [address], [place] [address] Jun, [facility] [address] [id number] [address] [place] [address], [place] [address] May, [facility] [address] [id number] [address] [place] [address], [place] [address] May, [facility] [address] [id number] [address] [place] [address], [place] [address] May, [facility] [address] [id number] [address] [place] [address] May, [facility] [address] [id number] [address] [place] [address], [place] [address] May, [facility] [address] [id number] [address] [place] [address] May, [facility] [address] [id number] [address] [place] [address] Apr, [facility] [address] [id number] [address] [place] [address] Apr, [facility] [address] [id number] [address] [place] [address], [place] [address] Apr, [facility] [address] [id number] [address] [place] [address] Apr, [facility] [address] [id number] [address] [place] [address], [place] [address] Apr, [facility] [address] [id number] [address] [place] [address], [place] [address] 15 Apr, 2013 [facility] [address] [id number] [address] [place] [address], [place] [address] 15 Apr, 2013 [facility] [address] [id number] [address] [place] [address], [place] [address] 01 Apr, 2013 [facility] [address] [id number] [address] [place] [address], [place] [address] 26 Mar, 2012 [facility] [address] [id number] [address] [place] [address], [place] [address] 24 Mar, 2012 [facility] [address] [id number] [address] [place] [address], [place] [address] 17 Mar, 2012 [facility] [address] [id number] [address] [place] [address], [place] [address] 17 Mar, 2012 [facility] [address] [id number] [address] [place] [address], [place] [address] 11 Mar, 2012 [facility] [address] [id number] [address] [place] [address], [place] [address] 10 Mar, 2012 [facility] [address] [id number] [address] [place] [address], [place] [address] 05 Mar, 2012 [facility] [address] [id number] [address] [place] [address], [place] [address] 04 Mar, 2013 [facility] [address] [id number] [address] [place] [address], [place] [address] 20 Jan, 2013 [facility] [address] [id number] [address] [place] [address], [place] [address] 19 Jan, 2013 [facility] [address] [id number] [address] [place] [address], [place] [address] 14 Jan, 2013 [facility] [address] [id number] [address] [place] [address], [place] [address] 12 Jan, 2013 [facility] [address] [id number] [address] [place] [address], [place] [address] 07 Jan, 2013 [facility] [address] [id number] [address] [place] [address], [place] [address] 05 Jan, 2013 [facility] [address] [id number] [address] [place] [address], [place] [address] 31 Dec, 2012 [facility] [address] [id number] [address] [place] [address], [place] [address] 24 Dec, 2012 [facility] [address] [id number] [address] [place] [address], [place] [address] Dec, [facility] [address] [id number] [address] [place] [address], [place] [address] Dec, [facility] [address] [id number] [address] [place] [address], [place] [address] 18 Dec, 2012 [facility] [address] [id number] [address] [place] [address], [place] [address] 17 Dec, 2012 [facility] [address] [id number] [address] [place] [address], [place] [address] 16 Dec, 2012 [facility] [address] [id number] [address] [place] [address], [place] [address] 16 Dec, 2012 [facility] [address] [id number] [address] [place] [address], [place] [address] 15 Dec, 2012 [facility] [address] [id number] [address] [place] [address], [place] [address] Dec, [facility] [address] [id number] [address] [place] [address], [place] [address] Dec, [facility] [address] [id number] [address] [place] [address], [place] [address] Dec, [facility] [address] [id number] [address] [place] [address], [place] [address] Dec, [facility] [address] [id number] [address] [place] [address], [place] [address] 17 Dec, 2012 [facility] [address] [id number] [address] [place] [address], [place] [address] Dec, [facility] [address] [id number] [address] [place] [address], [place] [address] Dec, [facility] [address] [id number] [address] [place] [address], [place] [address] October, [facility] [address] [id number] [address] [place] [address], [place] [address] October, [facility] [address] [id number] [address] [place] [address], [place] [address] October, [facility] [address] [id number] [address] [place] [address], [place] [address] October, [facility] [address] [id number] [address] [place] [address], [place] [address] October, [facility] [address] [id number] [address] [place] [address], [place] [address] October, [facility] [address] [id number] [address] [place] [address], [place] [address] October, [facility] [address] [id number] [address] [place] [address], [place] [address] Oct, [facility] [address] [id number] [address] [place] [address], [place] [address] Oct, [facility] [address] [id number] [address] [place] [address], [place] [address] Oct, [facility] [address] [id number] [address] [place] [address], [place] [address] Oct, [facility] [address] [id number] [address] [place] [address], [place] [address] Oct, [facility] [address] [id number] [address] [place] [address], [place] [address] 18 Oct, 2012 [facility] [address] [id number] [address] [place] [address], [place] [address] Oct, [facility] [address] [id number] [address] [place] [address], [place] [address] 15 Oct, 2012 [facility] [address] [id number] [address] [place] [address], [place] [address] Oct, [facility] [address] [id number] [address] [place] [address], [place] [address] Oct, [facility] [address] [id number] [address] [place] [address], [place] [address] Oct, [facility] [address] [id number] [address] [place] [address], [place] [address] Oct, [facility] [address] [id number] [address] [place] [address], [place] [address] Aug, [facility] [address] [id number] [address] [place] [address], [place] [address] Aug, [facility] [address] [id number] [address] [place] [address], [place] [address] Aug, [facility] [address] [id number] [address] [place] [address], [place] [address] Aug, [facility] [address] [id number] [address] [place] [address], [place] [address] 05 Aug, 2012 [facility] [address] [id number] [address] [place] [address], [place] [address] 05 Aug, 2012 [facility] [address] [id number] [address] [place] [address], [place] [address] 20 Aug, 2012 [facility] [address] [id number] [address] [place] [address], [place] [address] 14 Aug, 2012 [facility] [address] [id number] [address] [place] [address], [place] [address] Aug, [facility] [address] [id number] [address] [place] [address], [place] [address] Aug, [facility] [address] [id number] [address] [place] [address], [place] [address] Jul, [facility] [address] [id number] [address] [place] [address], [place] [address] 15 Jul, 2012 [facility] [address] [id number] [address] [place] [address], [place] [address] 08 Jul, 2012 [facility] [address] [id number] [address] [place] [address], [place] [address] 20 Jun, 2012 [facility] [address] [id number] [address] [place] [address], [place] [address] 18 Jun, 2012 [facility] [address] [id number] [address] [place] [address], [place] [address] 18 Jun, 2012 [facility] [address] [id number] [address] [place] [address], [place] [address] 18 Jun, 2012 [facility] [address] [id number] [address] [place] [address], [place] [address] 18 Jun, 2012 [facility] [address] [id number] [address] [place] [address], [place] [address] 14 Jun, 2012 [facility] [address] [id number] [address] [place] [address], [place] [address] 14 Jun, 2012 [facility] [address] [id number] [address] [place] [address], [place] [address] 13 Jun, 2012 [facility] [address] [id number] [address] [place] [address], [place] [address] 13 Jun, 2012 [facility] [address] [id number] [address] [place] [address], [place] [address] 11 Jun, 2012 [facility] [address] [id number] [address] [place] [address], [place] [address] 11 Jun, 2012 [facility] [address] [id number] [address] [place] [address], [place] [address] 11 Jun, 2012 [facility] [address] [id number] [address] [place] [address], [place] [address] 11 Jun, 2012 [facility] [address] [id number] [address] [place] [address], [place] [address] 07 Jun, 2012 [facility] [address] [id number] [address] [place] [address], [place] [address] Jun, [facility] [address] [id number] [address] [place] [address], [place] [address] Jun, [facility] [address] [id number] [address] [place] [address], [place] [address] Jun, [facility] [address] [id number] [address] [place] [address], [place] [address] Jun, [facility] [address] [id number] [address] [place] [address], [place] [address] Jun, [facility] [address] [id number] [address] [place] [address], [place] [address] Jun, [facility] [address] [id number] [address] [place] [address], [place] [address] Jun, [facility] [address] [id number] [address] [place] [address], [place] [address] Jun, [facility] [address] [id number] [address] [place] [address], [place] [address] Jun, [facility] [address] [id number] [address] [place] [address], [place] [address] May, [facility] [address] [id number] [address] [place] [address], [place] [address] May, [facility] [address] [id number] [address] [place] [address], [place] [address] May, [facility] [address] [id number] [address] [place] [address], [place] [address] May, [facility] [address] [id number] [address] [place] [address], [place] [address] May, [facility] [address] [id number] [address] [place] [address], [place] [address] May, [facility] [address] [id number] [address] [place] [address], [place] [address] May, [facility] [address] [id number] [address] [place] [address], [place] [address] May, [facility] [address] [id number] [address] [place] [address], [place] [address] Apr, [facility] [address] [id number] [address] [place] [address], [place] [address] Apr, [facility] [address] [id number] [address] [place] [address], [place] [address] Apr, [facility] [address] [id number] [address] [place] [address], [place] [address] Apr, [facility] [address] [id number] [address] [place] [address], [place] [address] Apr, [facility] [address] [id number] [address] [place] [address], [place] [address] Apr, [facility] [address] [id number] [address] [place] [address], [place] [address] Apr, [facility] [address] [id number] [address] [place] [address], [place] [address] Apr, [facility] [address] [id number] [address] [place] [address], [place] [address] Apr, [facility] [address] [id number] [address] [place] [address], [place] [address] Apr, [facility] [address] [id number] [address] [place] [address], [place] [address] Apr, [facility] [address] [id number] [address] [place] [address], [place] [address] Apr, [facility] [address] [id number] [address] [place] [address], [place] [address] Mar, [facility] [address] [id number] [address] [place] [address] 18 Mar, 2012 [facility] [address] [id number] [address] [place] [address], [place] [address] Mar, [facility] [address] [id number] [address] [place] [address] Mar, [facility] [address] [id number] [address] [place] [id number] Mar, [facility] [address] [id number] [address] [place] [id number] Mar, [facility] [address] [id number] [address] [place] [address], [place] [address] Mar, [facility] [address] [id number] [address] [place] [id number] Jan, [facility] [address] [id number] [address] [place] [address] Jan, [facility] [address] [id number] [address] [place] [id number] Jan, [facility] [address] [id number] [address] [place] [id number] Jan, [facility] [address] [id number] [address] [place] [id number] Jan, [facility] [address] [id number] [address] [place] [address] Jan, [facility] [address] [id number] [address] [place] [address] Jan, [facility] [address] [id number] [address] [place] [address], [place] [address] 14 Feb, 2012 [facility] [address] [id number] [address] [place] [address] Jan, [facility] [address] [id number] [address] [place] [id number] Jan, [facility] [address] [id number] [address] [place] [address], [place] [address] Jan, [facility] [address] [id number] [address] [place] [address], [place] [address] Dec, [facility] [address] [id number] [address] [place] [address], [place] [address] Dec, [facility] [address] [id number] [address] [place] [address], [place] [address] Dec, [facility] [address] [id number] [address] [place] [address], [place] [address] Dec, [facility] [address] [id number] [address] [place] [address], [place] [address] Dec, [facility] [address] [id number] [address] [place] [address], [place] [address] Dec, [facility] [address] [id number] [address] [place] [address], [place] [address] Dec, [facility] [address] [id number] [address] [place] [address], [place] [address] 17 Jan, 2012 [facility] [address] [id number] [address] [place] [address], [place] [address] 16 Jan, 2012 [facility] [address] [id number] [address] [place] [address], [place] [address] Dec, [facility] [address] [id number] [address] [place] [address], [place] [address] Dec, [facility] [address] [id number] [address] [place] [address], [place] [address] Dec, [facility] [address] [id number] [address] [place] [address], [place] [address] Dec, [facility] [address] [id number] [address] [place] [address], [place] [address] Dec, [facility] [address] [id number] [address] [place] [address], [place] [address] Dec, [facility] [address] [id number] [address] [place] [address], [place] [address] Dec, [facility] [address] [id number] [address] [place] [address], [place] [address] Dec, [facility] [address] [id number] [address] [place] [address], [place] [address] Dec, [facility] [address] [id number] [address] [place] [address], [place] [address] Dec, [facility] [address] [id number] [address] [place] [address], [place] [address] October, [facility] [address] [id number] [address] [place] [address], [place] [address] October, [facility] [address] [id number] [address] [place] [address], [place] [address] October, [facility] [address] [id number] [address] [place] [address], [place] [address] October, [facility] [address] [id number] [address] [place] [address], [place] [address] October, [facility] [address] [id number] [address] [place] [address], [place] [address] October, [facility] [address] [id number] [address] [place] [address], [place] [address] Oct, [facility] [address] [id number] [address] [place] [address], [place] [address] Oct, [facility] [address] [id number] [address] [place] [address], [place] [address] Oct, [facility] [address] [id number] [address] [place] [address], [place] [address] Oct, [facility] [address] [id number] [address] [place] [address], [place] [address] Oct, [facility] [address] [id number] [address] [place] [address], [place] [address] Oct, [facility] [address] [id number] [address] [place] [address], [place] [address] Oct, [facility] [address] [id number] [address] [place] [address], [place] [address] 29 Sep, 2011 [facility] [address] [id number] [address] [place] [address], [place] [address] 29 Sep, 2011 [facility] [address] [id number] [address] [place] [address], [place] [address] Aug, [facility] [address] [id number] [address] [place] [address], [place] [address] Aug, [facility] [address] [id number] [address] [place] [address], [place] [address] Aug, [facility] [address] [id number] [address] [place] [address], [place] [address] Aug, [facility] [address] [id number] [address] [place] [address], [place] [address] Aug, [facility] [address] [id number] [address] [place] [address], [place] [address] Aug, [facility] [address] [id number] [address] [place] [address], [place] [address] Aug, [facility] [address] [id number] [address] [place] [address], [place] [address] Jul, [facility] [address] [id number] [address] [place] [address], [place] [address] Jul, [facility] [address] [id number] [address] [place] [address], [place] [address] Jul, [facility] [address] [id number] [address] [place] [address], [place] [address] Jul, [facility] [address] [id number] [address] [place] [address], [place] [address] Jun, [facility] [address] [id number] [address] [place] [address], [place] [address] Jun, [facility] [address] [id number] [address] [place] [address], [place] [address] May, [facility] [address] [id number] [address] [place] [address], [place] [address] May, [facility] [address] [id number] [address] [place] [address], [place] [address] May, [facility] [address] [id number] [address] [place] [address], [place] [address] May, [facility] [address] [id number] [address] [place] [address], [place] [address] May, [facility] [address] [id number] [address] [place] [address], [place] [address] Apr, [facility] [address] [id number] [address] [place] [address], [place] [address] Apr, [facility] [address] [id number] [address] [place] [address], [place] [address] Apr, [facility] [address] [id number] [address] [place] [address], [place] [address] 15 Jan, 2011 [facility] [address] [id number] [address] [place] [address], [place] [address] Dec, [facility] [address] [id number] [address] [place] [address], [place] [address] October, [facility] [address] [id number] [address] [place] [address], [place] [address] Jun, [facility] [address] [id number] [address] [place] [address], [place] [address] 23 Apr, 2009 [facility] [address] [id number] [address] [place] [address], [place] [address] 13 Apr, 2009 [facility] [address] [id number] [address] [place] [address], [place] [address] Apr, [facility] [address] [facility] [address] [id number] [address] [place] [address] Jun, IMMUNIZATIONS No Known Immunizations SOCIAL HISTORY [...]
--- OUTSIDE RECORDS SUMMARY | 2020-01-25 12:35 | XMS REPORT ---
Author Author Ana Mayer Doctor Organization [facility] Address Unknown Phone Unavailable Care Team Providers Care Aquarist Name Role Phone Migration, Doctor Unavailable Unavailable PROBLEMS Type Condition ICD9-CM Code OFU12-AE Code Onset Dates Condition S tatus SNOMED Code Problem Attention deficit R41.840 Active 76 828000 Problem Chronic hepatitis C without hepatic coma B18.2 Active 137773228 Problem Cannabis abuse F12.10 Active 33694 009 Problem Bipolar disorder, in partial remission, most rec ent episode hypomanic F31.71 Active 894388270 Problem Attention deficit hyperactivity disorder (ADHD), combi luciano type F90.2 Active 21507751 Problem Bipolar 1 disorder F31.9 Active 3 71497247 Problem H/O laminectomy Z98.89 Active 1616 23502 Problem Other chronic pain G89.29 Active 8 1683426 Problem Anxiety disorder, unspecified type F41.9 Active 059230921 ALLERGIES No Information ENCOUNTERS Encounter Location Date Diagnosis [facility] [address] [facility] [place] [id number] [address] [place] [phone] Mar, [facility] [address] [facility] [place] [id number] [address] [place] [address] Dec, Other chronic pain G89.29 an d Low back pain M54.5 [facility] [address] [facility] [place] [id number] [address] [place] [id number] October, [facility] [address] [facility] [place] [id number] [address] [place] [address] October, [facility] [address] [facility] [place] [id number] [address] [place] [id number] October, [facility] [address] [facility] [place] [id number] [address] [place] [address] October, Other chronic pain G89.29 an d Chronic hepatitis C without hepatic coma B18.2 [facility] [address] [id number] [address] [place] [phone] Aug, Bipolar disorder, in partial remission, most recent episode hypomanic F31.71 ; Attention deficit hyperactivity disorder (ADHD), combined type F90.2 and Anxiety disorder, unspecified type F41.9 [facility] [address] [id number] [address] [place] [address] Aug, [facility] [address] [id number] [address] [place] [address] Aug, Bipolar disorder, in partial remission, most recent episode hypomanic F31.71 [facility] [address] [id number] [address] [place] [address] Aug, [facility] [address] [id number] [address] [place] [address] Aug, Bipolar disorder, in partial remission, most recent episode hypomanic F31.71 [facility] [address] [id number] [address] [place] [address] Aug, Bipolar disorder, in partial remission, most recent episode hypomanic F31.71 ; Attention deficit hyperactivity disorder (ADHD), combined type F90.2 and Anxiety disorder, unspecified type F41.9 [facility] [address] [id number] [address] [place] [address] Aug, Low back pain M54.5 and Pain in left wrist M25.532 [facility] [address] [id number] [address] [place] [address] Aug, [facility] [address] [id number] [address] [place] [phone] Jun, [facility] [address] [facility] [place] [id number] [address] [place] [address] Apr, Bipolar disorder, in partial remission, most recent episode hypomanic F31.71 [facility] [address] [id number] [address] [place] [id number] Apr, [facility] [address] [id number] [address] [place] [address] Apr, Bipolar disorder, in partial remission, most recent episode hypomanic F31.71 ; Attention deficit hyperactivity disorder (ADHD), combined type F90.2 ; Anxiety disorder, unspecified type F41.9 and Other chcf (current) 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 Z79.899 [facility] [address] [id number] [address] [place] [address] Apr, Bipolar disorder, in partial remission, most recent episode hypomanic F31.71 [facility] [address] [id number] [address] [place] [address] Apr, Bipolar disorder, in partial remission, most recent episode hypomanic F31.71 [facility] [address] [id number] [address] [place] [address] Mar, [facility] [address] [facility] [place] [id number] [address] [place] [address] Mar, Bipolar disorder, in partial remission, most recent episode hypomanic F31.71 ; Encounter for immunization Z23 and Low back pain M54.5 [facility] [address] [id number] [address] [place] [id number] Mar, Bipolar disorder, in partial remission, most recent episode hypomanic F31.71 [facility] [address] [id number] [address] [place] [address] Mar, Bipolar disorder, in partial remission, most recent episode hypomanic F31.71 [facility] [address] [id number] [address] [place] [address] Jan, Bipolar disorder, in partial remission, most recent episode hypomanic F31.71 [facility] [address] [facility] [place] [id number] [address] [place] [address] Jan, Bipolar disorder, in partial remission, most recent episode hypomanic F31.71 [facility] [address] [facility] [place] [id number] [address] [place] [address] Dec, Bipolar disorder, in partial remission, most recent episode hypomanic F31.71 [facility] [address] [id number] [address] [place] [address] Dec, Bipolar disorder, in partial remission, most recent episode hypomanic F31.71 ; Attention deficit hyperactivity disorder (ADHD), combined type F90.2 ; Anxiety disorder, unspecified type F41.9 and Other chcf (current) 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 Z79.899 [facility] [address] [id number] [address] [place] [address] Dec, Bipolar disorder, in partial remission, most recent episode hypomanic F31.71 [facility] [address] [id number] [address] [place] [id number] Dec, Bipolar disorder, in partial remission, most recent episode hypomanic F31.71 [facility] [address] [facility] [place] [id number] [address] [place] [phone] October, Bipolar disorder, in partial remission, most recent episode hypomanic F31.71 [facility] [address] [id number] [address] [place] [address] October, [facility] [address] [facility] [place] [id number] [address] [place] [phone] October, [facility] [address] [facility] [place] [id number] [address] [place] [address] Oct, Bipolar disorder, in partial remission, most recent episode hypomanic F31.71 ; Attention deficit hyperactivity disorder (ADHD), combined type F90.2 ; Anxiety disorder, unspecified type F41.9 and Encounter for drug screening Z02.83 [facility] [address] [id number] [address] [place] [address] Oct, Bipolar disorder, in partial remission, most recent episode hypomanic F31.71 [facility] [address] [id number] [address] [place] [phone] Oct, Bipolar disorder, in partial remission, most recent episode hypomanic F31.71 [facility] [address] [facility] [place] [id number] [address] [place] [address] Aug, Bipolar disorder, in partial remission, most recent episode hypomanic F31.71 [facility] [address] [facility] [place] [id number] [address] [place] [id number] Aug, Bipolar disorder, in partial remission, most recent episode hypomanic F31.71 [facility] [address] [facility] [place] [id number] [address] [place] [phone] Aug, Bipolar disorder, in partial remission, most recent episode hypomanic F31.71 [facility] [address] [id number] [address] [place] [id number] Jul, Bipolar disorder, in partial remission, most recent episode hypomanic F31.71 ; Attention deficit hyperactivity disorder (ADHD), combined type F90.2 and Anxiety disorder, unspecified type F41.9 [facility] [address] [facility] [place] [id number] [address] [place] [address] Jul, Bipolar disorder, in partial remission, most recent episode hypomanic F31.71 [facility] [address] [facility] [place] [id number] [address] [place] [address] Jun, Bipolar disorder, in partial remission, most recent episode hypomanic F31.71 [facility] [address] [facility] [place] [id number] [address] [place] [address] May, Bipolar disorder, in partial remission, most recent episode hypomanic F31.71 [facility] [address] [facility] [place] [id number] [address] [place] [address] May, Bipolar disorder, in partial remission, most recent episode hypomanic F31.71 [facility] [address] [facility] [place] [id number] [address] [place] [address] Apr, [facility] [address] [facility] [place] [id number] [address] [place] [address] Apr, Bipolar disorder, in partial remission, most recent episode hypomanic F31.71 ; Attention deficit hyperactivity disorder (ADHD), combined type F90.2 ; Anxiety disorder, unspecified type F41.9 and Cannabis abuse F12.10 [facility] [address] [id number] [address] [place] [id number] 13 Apr, 2017 Attention deficit hyperactiv ity disorder (ADHD), combined type F90.2 [facility] [address] [id number] [address] [place] [address] Mar, Attention deficit hyperactiv ity disorder (ADHD), combined type F90.2 [facility] [address] [id number] [address] [place] [id number] 14 Mar, 2017 Anxiety disorder, unspecifie d type F41.9 [facility] [address] [id number] [address] [place] [phone] Jan, Attention deficit hyperactiv ity disorder (ADHD), combined type F90.2 [facility] [address] [facility] [place] [id number] [address] [place] [address] Jan, Anxiety disorder, unspecifie d type F41.9 [facility] [address] [facility] [place] [id number] [address] [place] [address] Jan, Other chronic pain G89.29 ; Chronic hepatitis C without hepatic coma B18.2 and Bipolar 1 disorder F31.9 [facility] [address] [facility] [place] [id number] [address] [place] [address] Dec, Attention deficit hyperactiv ity disorder (ADHD), combined type F90.2 [facility] [address] [facility] [place] [id number] [address] [place] [address] Dec, Bipolar disorder, in partial remission, most recent episode hypomanic F31.71 ; Attention deficit hyperactivity disorder (ADHD), combined type F90.2 and Anxiety disorder, unspecified type F41.9 [facility] [address] [id number] [address] [place] [address] Dec, Bipolar disorder, in partial remission, most recent episode hypomanic F31.71 ; Attention deficit hyperactivity disorder (ADHD), combined type F90.2 and Anxiety disorder, unspecified type F41.9 [facility] [address] [place] [id number] [address] [place] [address] Dec, Bipolar 1 disorder F31.9 and Attention deficit R41.840 [facility] [address] [place] [id number] [address] [place] [address] Oct, Other chronic pain G89.29 ; Alopecia L65.9 and Screening, lipid Z13.220 [facility] [address] [place] [id number] [address] [place] [address] Oct, [facility] [address] [place] [id number] [address] [place] [phone] Aug, [facility] [address] [place] [id number] [place] [address] Aug, Eustachian tube dysfunction, right H69.81 ; Vertigo R42 and Other chronic pain G89.29 [facility] [address] [place] [id number] [address] [place] [id number] Aug, [facility] [address] [place] [id number] [address] [place] [address] Jun, [facility] [address] [place] [id number] [address] [place] [address] Jun, Low back pain M54.5 and Othe r chronic pain G89.29 [facility] [address] [place] [id number] [address] [place] [address] Jun, [facility] [address] [place] [id number] [address] [place] [id number] May, [facility] [address] [place] [id number] [address] [place] [address] Jan, [facility] [address] [place] [id number] [address] [place] [id number] Dec, [facility] [address] [place] [id number] [address] [place] [address] Dec, [facility] [address] [facility] [place] [id number] [address] [place] [id number] Jun, [facility] [address] [place] [id number] [place] [address] Apr, Eustachian tube dysfunction, unspecified laterality H69.80 ; Hot flashes N95.1 and Encounter for immunization Z23 [facility] [address] [facility] [place] [id number] [address] [place] [address] Jan, [facility] [address] [facility] [place] [id number] [address] [place] [address] Jan, [facility] [address] [place] [id number] [place] [address] Jan, [facility] [address] [address] Jan, [facility] [address] [address] Jan, Encounter to establish care V65.8 ; Bipolar 1 disorder 296.7 ; Abdominal pain 789.00 ; Constipation 564.00 ; Hard of hearing 389.9 and Drug abuse 305.90 [facility] [address] [place] [id number] [address] [place] [address] Dec, [facility] [id number] [place] [address] October, [facility] [address] [place] [id number] [address] [place] [id number] October, [facility] [address] [place] [id number] [address] [place] [id number] Oct, [facility] [address] [place] [id number] [address] [place] [id number] Oct, [facility] [address] [place] [id number] [address] [place] [address] Oct, [facility] [address] [id number] [address] [place] [address], [place] [address] Aug, 2014 [facility] [address] [id number] [address] [place] [address], [place] [address] Aug, 2014 [facility] [address] [id number] [address] [place] [address], [place] [address] Aug, 2014 [facility] [address] [id number] [address] [place] [address], [place] [address] Aug, 2014 [facility] [address] [id number] [address] [place] [address], [place] [address] Aug, 2014 [facility] [address] [id number] [address] [place] [address], [place] [address] Aug, 2014 [facility] [address] [id number] [address] [place] [address], [place] [address] Aug, 2014 [facility] [address] [id number] [address] [place] [address], [place] [address] Aug, 2014 [facility] [address] [id number] [address] [place] [address], [place] [address] Aug, 2014 [facility] [address] [id number] [address] [place] [address], [place] [address] Aug, 2014 [facility] [address] [id number] [address] [place] [phone] Aug, 2014 [facility] [address] [id number] [address] [place] [phone] Aug, 2014 [facility] [address] [id number] [address] [place] [address], [place] [address] Aug, 2014 [facility] [address] [id number] [address] [place] [address], [place] [address] Aug, 2014 [facility] [address] [id number] [address] [place] [id number] Aug, 2014 [facility] [address] [id number] [address] [place] [address] Jul, [facility] [address] [id number] [address] [place] [address], [place] [address] Jul, [facility] [address] [id number] [address] [place] [address], [place] [address] Jul, [facility] [address] [id number] [address] [place] [address], [place] [address] Jul, [facility] [address] [id number] [address] [place] [address], [place] [address] Jul, [facility] [address] [id number] [address] [place] [address], [place] [address] Jul, [facility] [address] [id number] [address] [place] [address], [place] [address] Jul, [facility] [address] [id number] [address] [place] [address], [place] [address] Jul, [facility] [address] [id number] [address] [place] [address], [place] [address] Jun, [facility] [address] [id number] [address] [place] [address], [place] [address] Jun, [facility] [address] [id number] [address] [place] [address], [place] [address] Jun, [facility] [address] [id number] [address] [place] [address], [place] [address] Jun, [facility] [address] [id number] [address] [place] [address], [place] [address] 18 Jun, 2014 [facility] [address] [id number] [address] [place] [address], [place] [address] 15 Jun, 2014 [facility] [address] [id number] [address] [place] [address], [place] [address] Jun, [facility] [address] [id number] [address] [place] [address], [place] [address] Jun, [facility] [address] [id number] [address] [place] [address], [place] [address] Jun, [facility] [address] [id number] [address] [place] [address], [place] [address] Jun, [facility] [address] [id number] [address] [place] [address], [place] [address] Jun, [facility] [address] [id number] [address] [place] [address], [place] [address] May, [facility] [address] [id number] [address] [place] [address], [place] [address] May, [facility] [address] [id number] [address] [place] [address], [place] [address] May, [facility] [address] [id number] [address] [place] [address], [place] [address] May, [facility] [address] [id number] [address] [place] [address], [place] [address] May, [facility] [address] [id number] [address] [place] [address], [place] [address] May, [facility] [address] [id number] [address] [place] [address], [place] [address] May, [facility] [address] [id number] [address] [place] [address], [place] [address] Apr, [facility] [address] [id number] [address] [place] [address], [place] [address] Apr, [facility] [address] [id number] [address] [place] [address], [place] [address] Apr, [facility] [address] [id number] [address] [place] [address], [place] [address] Apr, [facility] [address] [id number] [address] [place] [address], [place] [address] Apr, [facility] [address] [id number] [address] [place] [address], [place] [address] Apr, [facility] [address] [id number] [address] [place] [address], [place] [address] Mar, [facility] [address] [id number] [address] [place] [address], [place] [address] Mar, [facility] [address] [id number] [address] [place] [address], [place] [address] Mar, [facility] [address] [id number] [address] [place] [address], [place] [address] Mar, [facility] [address] [id number] [address] [place] [address], [place] [address] Mar, [facility] [address] [id number] [address] [place] [address], [place] [address] Mar, [facility] [address] [id number] [address] [place] [address], [place] [address] Jan, [facility] [address] [id number] [address] [place] [address], [place] [address] Jan, [facility] [address] [id number] [address] [place] [address], [place] [address] Jan, [facility] [address] [id number] [address] [place] [address], [place] [address] Jan, [facility] [address] [id number] [address] [place] [address], [place] [address] Dec, [facility] [address] [id number] [address] [place] [address], [place] [address] Dec, [facility] [address] [id number] [address] [place] [address], [place] [address] Dec, [facility] [address] [id number] [address] [place] [address], [place] [address] Dec, [facility] [address] [id number] [address] [place] [address], [place] [address] Dec, [facility] [address] [id number] [address] [place] [address], [place] [address] Dec, [facility] [address] [id number] [address] [place] [address], [place] [address] Dec, [facility] [address] [address] [id number] [address] [place] [address], [place] [address] Dec, [facility] [address] [id number] [address] [place] [address], [place] [address] Dec, [facility] [address] [id number] [address] [place] [address], [place] [address] Dec, [facility] [address] [id number] [address] [place] [address], [place] [address] Dec, [facility] [address] [id number] [address] [place] [address], [place] [address] Dec, [facility] [address] [id number] [address] [place] [address], [place] [address] October, [facility] [address] [id number] [address] [place] [address], [place] [address] October, [facility] [address] [id number] [address] [place] [address], [place] [address] October, [facility] [address] [id number] [address] [place] [address], [place] [address] October, [facility] [address] [id number] [address] [place] [address], [place] [address] October, [facility] [address] [id number] [address] [place] [address], [place] [address] October, [facility] [address] [id number] [address] [place] [address], [place] [address] Oct, [facility] [address] [id number] [address] [place] [address], [place] [address] Oct, [facility] [address] [id number] [address] [place] [address], [place] [address] Oct, [facility] [address] [id number] [facility] [place] [address] Oct, [facility] [address] [id number] [facility] [place] [address] Oct, [facility] [address] [id number] [facility] [place] [address] Oct, [facility] [address] [id number] [facility] [place] [address] Oct, [facility] [address] [id number] [facility] [place] [address] Oct, [facility] [address] [id number] [address] [place] [address], [place] [address] Oct, [facility] [address] [id number] [address] [place] [address], [place] [address] Oct, [facility] [address] [id number] [address] [place] [address], [place] [address] Oct, [facility] [address] [id number] [address] [place] [address], [place] [address] Oct, [facility] [address] [id number] [address] [place] [address], [place] [address] Aug, [facility] [address] [id number] [address] [place] [address], [place] [address] 15 Aug, 2013 [facility] [address] [id number] [address] [place] [address], [place] [address] Aug, [facility] [address] [id number] [address] [place] [address], [place] [address] Aug, [facility] [address] [id number] [address] [place] [address], [place] [address] 05 Aug, 2013 [facility] [address] [id number] [address] [place] [address], [place] [address] 05 Aug, 2013 [facility] [address] [id number] [address] [place] [address], [place] [address] Aug, [facility] [address] [id number] [address] [place] [address], [place] [address] Aug, [facility] [address] [id number] [address] [place] [address], [place] [address] Aug, [facility] [address] [id number] [address] [place] [address], [place] [address] Aug, [facility] [address] [id number] [address] [place] [address], [place] [address] Aug, [facility] [address] [id number] [address] [place] [address], [place] [address] Aug, [facility] [address] [id number] [address] [place] [address], [place] [address] Aug, [facility] [address] [id number] [address] [place] [address], [place] [address] 20 Aug, 2013 [facility] [address] [id number] [address] [place] [address], [place] [address] 14 Aug, 2013 [facility] [address] [id number] [address] [place] [address], [place] [address] Aug, [facility] [address] [id number] [address] [place] [address], [place] [address] 14 Aug, 2013 [facility] [address] [id number] [address] [place] [address], [place] [address] 14 Aug, 2013 [facility] [address] [id number] [address] [place] [address], [place] [address] 07 Aug, 2013 [facility] [address] [id number] [address] [place] [address], [place] [address] 07 Aug, 2013 [facility] [address] [id number] [address] [place] [address], [place] [address] 06 Aug, 2013 [facility] [address] [id number] [address] [place] [address], [place] [address] Aug, [facility] [address] [id number] [address] [place] [address], [place] [address] Aug, [facility] [address] [id number] [address] [place] [address], [place] [address] Aug, [facility] [address] [id number] [address] [place] [address], [place] [address] Aug, [facility] [address] [id number] [address] [place] [address], [place] [address] Jul, [facility] [address] [id number] [address] [place] [address], [place] [address] Jul, [facility] [address] [id number] [address] [place] [address], [place] [address] Jul, [facility] [address] [id number] [address] [place] [address], [place] [address] Jul, [facility] [address] [id number] [address] [place] [address], [place] [address] Jul, [facility] [address] [id number] [address] [place] [address], [place] [address] Jul, [facility] [address] [id number] [address] [place] [address], [place] [address] Jul, [facility] [address] [id number] [address] [place] [address], [place] [address] Jul, [facility] [address] [id number] [address] [place] [address], [place] [address] Jul, [facility] [address] [id number] [address] [place] [address], [place] [address] Jul, [facility] [address] [id number] [address] [place] [address], [place] [address] Jul, [facility] [address] [id number] [address] [place] [address], [place] [address] Jul, [facility] [address] [id number] [address] [place] [address] Jul, [facility] [address] [id number] [address] [place] [address], [place] [address] Jul, [facility] [address] [id number] [address] [place] [address], [place] [address] Jul, [facility] [address] [id number] [address] [place] [address], [place] [address] Jul, [facility] [address] [id number] [address] [place] [address], [place] [address] Jul, [facility] [address] [id number] [address] [place] [address], [place] [address] Jul, [facility] [address] [id number] [address] [place] [address], [place] [address] Jul, [facility] [address] [id number] [address] [place] [address], [place] [address] Jul, [facility] [address] [id number] [address] [place] [address], [place] [address] Jun, [facility] [address] [id number] [address] [place] [address], [place] [address] Jun, [facility] [address] [id number] [address] [place] [address], [place] [address] Jun, [facility] [address] [id number] [address] [place] [address], [place] [address] Jun, [facility] [address] [id number] [address] [place] [address], [place] [address] Jun, [facility] [address] [id number] [address] [place] [address], [place] [address] Jun, [facility] [address] [id number] [address] [place] [address], [place] [address] Jun, [facility] [address] [id number] [address] [place] [address], [place] [address] Jun, [facility] [address] [id number] [address] [place] [address], [place] [address] 24 Jun, 2013 [facility] [address] [id number] [address] [place] [address], [place] [address] Jun, [facility] [address] [id number] [address] [place] [address], [place] [address] Jun, [facility] [address] [id number] [address] [place] [address], [place] [address] Jun, [facility] [address] [id number] [address] [place] [address], [place] [address] Jun, [facility] [address] [id number] [address] [place] [address], [place] [address] Jun, [facility] [address] [id number] [address] [place] [address], [place] [address] Jun, [facility] [address] [id number] [address] [place] [address], [place] [address] Jun, [facility] [address] [id number] [address] [place] [address], [place] [address] 18 Jun, 2013 [facility] [address] [id number] [address] [place] [address], [place] [address] 17 Jun, 2013 [facility] [address] [id number] [address] [place] [address], [place] [address] 17 Jun, 2013 [facility] [address] [id number] [address] [place] [address], [place] [address] 13 Jun, 2013 [facility] [address] [id number] [address] [place] [address], [place] [address] 12 Jun, 2013 [facility] [address] [id number] [address] [place] [address], [place] [address] Jun, [facility] [address] [id number] [address] [place] [address], [place] [address] 09 Jun, 2013 [facility] [address] [id number] [address] [place] [address] [address] Jun, [facility] [address] [id number] [address] [place] [address], [place] [address] Jun, [facility] [address] [id number] [address] [place] [address], [place] [address] Jun, [facility] [address] [id number] [address] [place] [address], [place] [address] Jun, [facility] [address] [id number] [address] [place] [address], [place] [address] May, [facility] [address] [id number] [address] [place] [address], [place] [address] May, [facility] [address] [id number] [address] [place] [address] May, [facility] [address] [id number] [address] [place] [address], [place] [address] May, [facility] [address] [id number] [address] [place] [address] May, [facility] [address] [id number] [address] [place] [address] May, [facility] [address] [id number] [address] [place] [address] Apr, [facility] [address] [id number] [address] [place] [address] 30 Apr, 2013 [facility] [address] [id number] [address] [place] [address] 30 Apr, 2013 [facility] [address] [id number] [address] [place] [address] 30 Apr, 2013 [facility] [address] [id number] [address] [place] [address] Apr, [facility] [address] [id number] [address] [place] [address] 15 Apr, 2013 [facility] [address] [id number] [address] [place] [address], [place] [address] 15 Apr, 2013 [facility] [address] [id number] [address] [place] [address], [place] [address] 01 Apr, 2013 [facility] [address] [id number] [address] [place] [address], [place] [address] 26 Mar, 2012 [facility] [address] [id number] [address] [place] [address], [place] [address] 24 Mar, 2012 [facility] [address] [id number] [address] [place] [address], [place] [address] 17 Mar, 2012 [facility] [address] [id number] [address] [place] [address], [place] [address] 17 Mar, 2012 [facility] [address] [id number] [address] [place] [address], [place] [address] 11 Mar, 2013 [facility] [address] [id number] [address] [place] [address], [place] [address] 10 Mar, 2012 [facility] [address] [id number] [address] [place] [address], [place] [address] 05 Mar, 2013 [facility] [address] [id number] [address] [place] [address], [place] [address] 04 Mar, 2013 [facility] [address] [id number] [address] [place] [address], [place] [address] 20 Jan, 2013 [facility] [address] [id number] [address] [place] [address], [place] [address] Jan, [facility] [address] [id number] [address] [place] [address], [place] [address] 14 Jan, 2013 [facility] [address] [id number] [address] [place] [address], [place] [address] 12 Jan, 2013 [facility] [address] [id number] [address] [place] [address], [place] [address] Jan, [facility] [address] [id number] [address] [place] [address], [place] [address] Jan, [facility] [address] [id number] [address] [place] [address], [place] [address] 31 Dec, 2012 [facility] [address] [id number] [address] [place] [address], [place] [address] 24 Dec, 2012 [facility] [address] [id number] [address] [place] [address], [place] [address] Dec, [facility] [address] [id number] [address] [place] [address], [place] [address] Dec, [facility] [address] [id number] [address] [place] [address], [place] [address] 18 Dec, 2012 [facility] [address] [id number] [address] [place] [address], [place] [address] 17 Dec, 2012 [facility] [address] [id number] [address] [place] [address], [place] [address] 16 Dec, 2012 [facility] [address] [id number] [address] [place] [address], [place] [address] 16 Dec, 2012 [facility] [address] [id number] [address] [place] [address], [place] [address] 15 Dec, 2012 [facility] [address] [id number] [address] [place] [address], [place] [address] Dec, [facility] [address] [id number] [address] [place] [address], [place] [address] Dec, [facility] [address] [id number] [address] [place] [address], [place] [address] Dec, [facility] [address] [id number] [address] [place] [address], [place] [address] Dec, [facility] [address] [id number] [address] [place] [address], [place] [address] 17 Dec, 2012 [facility] [address] [id number] [address] [place] [address], [place] [address] 13 Dec, 2012 [facility] [address] [id number] [address] [place] [address], [place] [address] Dec, [facility] [address] [id number] [address] [place] [address], [place] [address] October, [facility] [address] [id number] [address] [place] [address], [place] [address] October, [facility] [address] [id number] [address] [place] [address], [place] [address] October, [facility] [address] [id number] [address] [place] [address], [place] [address] October, [facility] [address] [id number] [address] [place] [address], [place] [address] October, [facility] [address] [id number] [address] [place] [address], [place] [address] October, [facility] [address] [id number] [address] [place] [address], [place] [address] October, [facility] [address] [id number] [address] [place] [address], [place] [address] Oct, [facility] [address] [id number] [address] [place] [address], [place] [address] Oct, [facility] [address] [id number] [address] [place] [address], [place] [address] Oct, [facility] [address] [id number] [address] [place] [address], [place] [address] Oct, [facility] [address] [id number] [address] [place] [address], [place] [address] Oct, [facility] [address] [id number] [address] [place] [address], [place] [address] 18 Oct, 2012 [facility] [address] [id number] [address] [place] [address], [place] [address] 17 Oct, 2012 [facility] [address] [id number] [address] [place] [address], [place] [address] 15 Oct, 2012 [facility] [address] [id number] [address] [place] [address], [place] [address] Oct, [facility] [address] [id number] [address] [place] [address], [place] [address] Oct, [facility] [address] [id number] [address] [place] [address], [place] [address] Oct, [facility] [address] [id number] [address] [place] [address], [place] [address] Oct, [facility] [address] [id number] [address] [place] [address], [place] [address] Aug, [facility] [address] [id number] [address] [place] [address], [place] [address] Aug, [facility] [address] [id number] [address] [place] [address], [place] [address] Aug, [facility] [address] [id number] [address] [place] [address], [place] [address] Aug, [facility] [address] [id number] [address] [place] [address], [place] [address] Aug, [facility] [address] [id number] [address] [place] [address], [place] [address] Aug, [facility] [address] [id number] [address] [place] [address], [place] [address] Aug, [facility] [address] [id number] [address] [place] [address], [place] [address] 14 Aug, 2012 [facility] [address] [id number] [address] [place] [address], [place] [address] Aug, [facility] [address] [id number] [address] [place] [address], [place] [address] Aug, [facility] [address] [id number] [address] [place] [address], [place] [address] 29 Jul, 2012 [facility] [address] [id number] [address] [place] [address] [address] 15 Jul, 2012 [facility] [address] [id number] [address] [place] [address], [place] [address] 08 Jul, 2012 [facility] [address] [id number] [address] [place] [address], [place] [address] 20 Jun, 2012 [facility] [address] [id number] [address] [place] [address], [place] [address] 18 Jun, 2012 [facility] [address] [id number] [address] [place] [address], [place] [address] 18 Jun, 2012 [facility] [address] [id number] [address] [place] [address], [place] [address] 18 Jun, 2012 [facility] [address] [id number] [address] [place] [address], [place] [address] 18 Jun, 2012 [facility] [address] [id number] [address] [place] [address], [place] [address] 14 Jun, 2012 [facility] [address] [id number] [address] [place] [address], [place] [address] 14 Jun, 2012 [facility] [address] [id number] [address] [place] [address], [place] [address] 13 Jun, 2012 [facility] [address] [id number] [address] [place] [address], [place] [address] 13 Jun, 2012 [facility] [address] [id number] [address] [place] [address], [place] [address] 11 Jun, 2012 [facility] [address] [id number] [address] [place] [address], [place] [address] 11 Jun, 2012 [facility] [address] [id number] [address] [place] [address], [place] [address] 11 Jun, 2012 [facility] [address] [id number] [address] [place] [address], [place] [address] 11 Jun, 2012 [facility] [address] [id number] [address] [place] [address], [place] [address] 07 Jun, 2012 [facility] [address] [id number] [address] [place] [address], [place] [address] 07 Jun, 2012 [facility] [address] [id number] [address] [place] [address], [place] [address] Jun, [facility] [address] [id number] [address] [place] [address], [place] [address] Jun, [facility] [address] [id number] [address] [place] [address], [place] [address] Jun, [facility] [address] [id number] [address] [place] [address], [place] [address] Jun, [facility] [address] [id number] [address] [place] [address], [place] [address] Jun, [facility] [address] [id number] [address] [place] [address], [place] [address] Jun, [facility] [address] [id number] [address] [place] [address], [place] [address] Jun, [facility] [address] [id number] [address] [place] [address], [place] [address] Jun, [facility] [address] [id number] [address] [place] [address], [place] [address] May, [facility] [address] [id number] [address] [place] [address], [place] [address] May, [facility] [address] [id number] [address] [place] [address], [place] [address] May, [facility] [address] [id number] [address] [place] [address], [place] [address] May, [facility] [address] [id number] [address] [place] [address], [place] [address] May, [facility] [address] [address] [id number] [address] [place] [address], [place] [address] May, [facility] [address] [id number] [address] [place] [address], [place] [address] May, [facility] [address] [id number] [address] [place] [address], [place] [address] May, [facility] [address] [id number] [address] [place] [address], [place] [address] Apr, [facility] [address] [id number] [address] [place] [address], [place] [address] Apr, [facility] [address] [id number] [address] [place] [address], [place] [address] Apr, [facility] [address] [id number] [address] [place] [address], [place] [address] Apr, [facility] [address] [id number] [address] [place] [address], [place] [address] Apr, [facility] [address] [id number] [address] [place] [address], [place] [address] Apr, [facility] [address] [id number] [address] [place] [address], [place] [address] Apr, [facility] [address] [id number] [address] [place] [address], [place] [address] Apr, [facility] [address] [id number] [address] [place] [address], [place] [address] Apr, [facility] [address] [id number] [address] [place] [address], [place] [address] Apr, [facility] [address] [id number] [address] [place] [address], [place] [address] Apr, [facility] [address] [id number] [address] [place] [address], [place] [address] Apr, [facility] [address] [id number] [address] [place] [address], [place] [address] Mar, [facility] [address] [id number] [address] [place] [address], [place] [address] 18 Mar, 2012 [facility] [address] [id number] [address] [place] [address] Mar, [facility] [address] [id number] [address] [place] [address] Mar, [facility] [address] [id number] [address] [place] [id number] Mar, [facility] [address] [id number] [address] [place] [id number] Mar, [facility] [address] [id number] [address] [place] [address] Mar, [facility] [address] [id number] [address] [place] [address], [place] [address] Jan, [facility] [address] [id number] [address] [place] [address] Jan, [facility] [address] [id number] [address] [place] [id number] Jan, [facility] [address] [id number] [address] [place] [id number] Jan, [facility] [address] [id number] [address] [place] [address], [place] [address] Jan, [facility] [address] [id number] [address] [place] [address] Jan, [facility] [address] [id number] [address] [place] [address] Jan, [facility] [address] [id number] [address] [place] [address] Jan, [facility] [address] [id number] [address] [place] [address], [place] [address] Jan, [facility] [address] [id number] [address] [place] [address], [place] [address] Jan, [facility] [address] [id number] [address] [place] [address] Jan, [facility] [address] [id number] [facility] [place] [address] 28 Jan, 2012 [facility] [address] [id number] [address] [place] [address], [place] [address] 27 Jan, 2012 [facility] [address] [id number] [address] [place] [address], [place] [address] 26 Jan, 2012 [facility] [address] [id number] [address] [place] [address], [place] [address] 26 Dec, 2011 [facility] [address] [id number] [address] [place] [address], [place] [address] 20 Jan, 2012 [facility] [address] [id number] [address] [place] [address], [place] [address] 19 Jan, 2012 [facility] [address] [id number] [address] [place] [address], [place] [address] 18 Jan, 2012 [facility] [address] [id number] [address] [place] [address], [place] [address] 17 Jan, 2012 [facility] [address] [id number] [address] [place] [address], [place] [address] 16 Jan, 2012 [facility] [address] [id number] [address] [place] [address], [place] [address] Dec, [facility] [address] [id number] [address] [place] [address], [place] [address] 13 Jan, 2012 [facility] [address] [id number] [address] [place] [address], [place] [address] 02 Jan, 2012 [facility] [address] [id number] [address] [place] [address], [place] [address] Dec, [facility] [address] [id number] [address] [place] [address], [place] [address] Dec, [facility] [address] [id number] [address] [place] [address], [place] [address] Dec, [facility] [address] [id number] [address] [place] [address], [place] [address] Dec, [facility] [address] [id number] [address] [place] [address], [place] [address] Dec, [facility] [address] [id number] [address] [place] [address], [place] [address] Dec, [facility] [address] [id number] [address] [place] [address], [place] [address] Dec, [facility] [address] [id number] [address] [place] [address], [place] [address] October, [facility] [address] [id number] [address] [place] [address], [place] [address] October, [facility] [address] [id number] [address] [place] [address], [place] [address] October, [facility] [address] [id number] [address] [place] [address], [place] [address] October, [facility] [address] [id number] [address] [place] [address], [place] [address] October, [facility] [address] [id number] [address] [place] [address], [place] [address] October, [facility] [address] [id number] [address] [place] [address], [place] [address] Oct, [facility] [address] [id number] [address] [place] [address], [place] [address] Oct, [facility] [address] [id number] [address] [place] [address], [place] [address] Oct, [facility] [address] [id number] [address] [place] [address], [place] [address] Oct, [facility] [address] [id number] [address] [place] [address], [place] [address] Oct, [facility] [address] [id number] [address] [place] [address], [place] [address] Oct, [facility] [address] [id number] [address] [place] [address], [place] [address] 02 Oct, 2011 [facility] [address] [id number] [address] [place] [address], [place] [address] 29 Sep, 2011 [facility] [address] [id number] [address] [place] [address], [place] [address] 29 Sep, 2011 [facility] [address] [id number] [address] [place] [address], [place] [address] 19 Sep, 2011 [facility] [address] [id number] [address] [place] [address], [place] [address] 13 Sep, 2011 [facility] [address] [id number] [address] [place] [address], [place] [address] 05 Sep, 2011 [facility] [address] [id number] [address] [place] [address], [place] [address] 05 Sep, 2011 [facility] [address] [id number] [address] [place] [address], [place] [address] 27 Aug, 2011 [facility] [address] [id number] [address] [place] [address], [place] [address] Aug, [facility] [address] [id number] [address] [place] [address], [place] [address] 08 Aug, 2011 [facility] [address] [id number] [address] [place] [address], [place] [address] Jul, [facility] [address] [id number] [address] [place] [address], [place] [address] Jul, [facility] [address] [id number] [address] [place] [address], [place] [address] Jul, [facility] [address] [id number] [address] [place] [address], [place] [address] 10 Jul, 2011 [facility] [address] [id number] [address] [place] [address], [place] [address] 28 Jun, 2011 [facility] [address] [id number] [address] [place] [address], [place] [address] Jun, [facility] [address] [id number] [address] [place] [address], [place] [address] May, [facility] [address] [id number] [address] [place] [address], [place] [address] May, [facility] [address] [id number] [address] [place] [address], [place] [address] May, [facility] [address] [id number] [address] [place] [address], [place] [address] May, [facility] [address] [id number] [address] [place] [address], [place] [address] May, [facility] [address] [id number] [address] [place] [address], [place] [address] Apr, [facility] [address] [id number] [address] [place] [address], [place] [address] Apr, [facility] [address] [id number] [address] [place] [address], [place] [address] Apr, [facility] [address] [id number] [address] [place] [address], [place] [address] Jan, [facility] [address] [id number] [address] [place] [address], [place] [address] Dec, [facility] [address] [id number] [address] [place] [address], [place] [address] October, [facility] [address] [id number] [address] [place] [address], [place] [address] Jun, [facility] [address] [id number] [address] [place] [address], [place] [address] 23 Apr, 2009 [facility] [address] [id number] [address] [place] [address], [place] [address] Apr, [facility] [address] [id number] [address] [place] [address], [place] [address] Apr, [facility] [address] [id number] [address] [place] [address], [place] [address] Jun, IMMUNIZATIONS No Known Immunizations SOCIAL HISTORY Never Assessed REASON FOR VISIT PLAN OF CARE VITAL SIGNS Height 69 in 2014-04-25 Weight 195.11 lbs 2014-04-25 Temperature 98.5 degrees Fahrenheit 2014-04-25 Heart Rate 84 bpm 2014-04-25 Respiratory Rate 28 2014-04-25 Blood pressure systolic 132 mmHg 2014-04-25 Blood pressure diastolic 82 mmHg 2014-04-25 MEDICATIONS Unknown Medications RESULTS No Results PROCEDURES [...]
--- OUTSIDE RECORDS SUMMARY | 2020-01-25 12:35 | XMS REPORT ---
Author Author Ana Iraheta Organization [facility] Address [address] [place] [address] Care Team Providers Care [employer] Name Role Phone MELISA Iraheta Unavailable PROBLEMS Type Condition ICD9-CM Code ACM62-XB Code Onset Dates Condition S tatus SNOMED Code Problem Attention deficit R41.840 Active 76 103725 Problem Chronic hepatitis C without hepatic coma B18.2 Active 770712353 Problem Cannabis abuse F12.10 Active 23245 009 Problem Bipolar disorder, in partial remission, most rec ent episode hypomanic F31.71 Active 798179932 Problem Attention deficit hyperactivity disorder (ADHD), combi luciano type F90.2 Active 15972069 Problem Bipolar 1 disorder F31.9 Active 3 79874235 Problem H/O laminectomy Z98.89 Active 1616 39330 Problem Other chronic pain G89.29 Active 8 4776815 Problem Anxiety disorder, unspecified type F41.9 Active 837218811 ALLERGIES No Information ENCOUNTERS Encounter Location Date Diagnosis [facility] [address] [facility] [id number] [address] [place] [address] Mar, [facility] [address] [facility] [id number] [address] [place] [address] Dec, Other chronic pain G89.29 an d Low back pain M54.5 [facility] [address] [facility] [id number] [address] [place] [address] October, [facility] [address] [facility] [id number] [address] [place] [address] October, [facility] [address] [facility] [id number] [address] [place] [address] October, [facility] [address] [facility] [id number] [address] [place] [address] October, Other chronic pain G89.29 an d Chronic hepatitis C without hepatic coma B18.2 [facility] [address] [id number] [address] [place] [address] Aug, Bipolar disorder, in partial remission, most recent episode hypomanic F31.71 ; Attention deficit hyperactivity disorder (ADHD), combined type F90.2 and Anxiety disorder, unspecified type F41.9 [facility] [address] [id number] [address] [place] [address] Aug, [facility] [address] [id number] [address] [place] [address] Aug, Bipolar disorder, in partial remission, most recent episode hypomanic F31.71 [facility] [address] [id number] [address] [place] [address] Aug, [facility] [address] [id number] [address] [place] [address] Aug, Bipolar disorder, in partial remission, most recent episode hypomanic F31.71 [facility] [address] [id number] [address] [place] [address] Aug, Bipolar disorder, in partial remission, most recent episode hypomanic F31.71 ; Attention deficit hyperactivity disorder (ADHD), combined type F90.2 and Anxiety disorder, unspecified type F41.9 [facility] [address] [id number] [address] [place] [address] Aug, Low back pain M54.5 and Pain in left wrist M25.532 [facility] [address] [id number] [address] [place] [address] Aug, [facility] [address] [facility] [id number] [address] [place] [address] Jun, [facility] [address] [id number] [address] [place] [address] Apr, Bipolar disorder, in partial remission, most recent episode hypomanic F31.71 [facility] [address] [id number] [address] [place] [address] Apr, [facility] [address] [facility] [id number] [address] [place] [address] Apr, Bipolar disorder, in partial remission, most recent episode hypomanic F31.71 ; Attention deficit hyperactivity disorder (ADHD), combined type F90.2 ; Anxiety disorder, unspecified type F41.9 and Other rn long term care (current) 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 Z79.899 [facility] [address] [id number] [address] [place] [address] Apr, Bipolar disorder, in partial remission, most recent episode hypomanic F31.71 [facility] [address] [facility] [id number] [address] [place] [address] Apr, Bipolar disorder, in partial remission, most recent episode hypomanic F31.71 [facility] [address] [facility] [id number] [address] [place] [address] Mar, [place] [id number] [facility] [id number] [address] [place] [address] Mar, Bipolar disorder, in partial remission, most recent episode hypomanic F31.71 ; Encounter for immunization Z23 and Low back pain M54.5 [facility] [address] [id number] [address] [place] [address] 17 Mar, 2018 Bipolar disorder, in partial remission, most recent episode hypomanic F31.71 [facility] [address] [facility] [id number] [address] [place] [address] Mar, Bipolar disorder, in partial remission, most recent episode hypomanic F31.71 [facility] [address] [facility] [id number] [address] [place] [address] Jan, Bipolar disorder, in partial remission, most recent episode hypomanic F31.71 [facility] [address] [facility] [id number] [address] [place] [address] Jan, Bipolar disorder, in partial remission, most recent episode hypomanic F31.71 [facility] [address] [id number] [address] [place] [address] Dec, Bipolar disorder, in partial remission, most recent episode hypomanic F31.71 [facility] [address] [id number] [address] [place] [address] Dec, Bipolar disorder, in partial remission, most recent episode hypomanic F31.71 ; Attention deficit hyperactivity disorder (ADHD), combined type F90.2 ; Anxiety disorder, unspecified type F41.9 and 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 [facility] [address] [id number] [address] [place] [address] Dec, Bipolar disorder, in partial remission, most recent episode hypomanic F31.71 [facility] [address] [id number] [address] [place] [address] Dec, Bipolar disorder, in partial remission, most recent episode hypomanic F31.71 [facility] [address] [id number] [address] [place] [address] October, Bipolar disorder, in partial remission, most recent episode hypomanic F31.71 [facility] [address] [id number] [address] [place] [address] October, [facility] [address] [facility] [id number] [address] [place] [address] October, [facility] [address] [facility] [id number] [address] [place] [address] Oct, Bipolar disorder, in partial remission, most recent episode hypomanic F31.71 ; Attention deficit hyperactivity disorder (ADHD), combined type F90.2 ; Anxiety disorder, unspecified type F41.9 and Encounter for drug screening Z02.83 [facility] [address] [id number] [address] [place] [address] Oct, Bipolar disorder, in partial remission, most recent episode hypomanic F31.71 [facility] [address] [facility] [id number] [address] [place] [address] Oct, Bipolar disorder, in partial remission, most recent episode hypomanic F31.71 [facility] [address] [id number] [address] [place] [address] Aug, Bipolar disorder, in partial remission, most recent episode hypomanic F31.71 [facility] [address] [id number] [address] [place] [address] Aug, Bipolar disorder, in partial remission, most recent episode hypomanic F31.71 [facility] [address] [id number] [address] [place] [address] Aug, Bipolar disorder, in partial remission, most recent episode hypomanic F31.71 [facility] [address] [facility] [id number] [address] [place] [address] Jul, Bipolar disorder, in partial remission, most recent episode hypomanic F31.71 ; Attention deficit hyperactivity disorder (ADHD), combined type F90.2 and Anxiety disorder, unspecified type F41.9 [facility] [address] [facility] [id number] [address] [place] [address] Jul, Bipolar disorder, in partial remission, most recent episode hypomanic F31.71 [facility] [address] [facility] [id number] [address] [place] [address] Jun, Bipolar disorder, in partial remission, most recent episode hypomanic F31.71 [facility] [address] [facility] [id number] [address] [place] [address] May, Bipolar disorder, in partial remission, most recent episode hypomanic F31.71 [facility] [address] [id number] [address] [place] [address] May, Bipolar disorder, in partial remission, most recent episode hypomanic F31.71 [facility] [address] [id number] [address] [place] [address] Apr, [facility] [address] [facility] [id number] [address] [place] [address] Apr, Bipolar disorder, in partial remission, most recent episode hypomanic F31.71 ; Attention deficit hyperactivity disorder (ADHD), combined type F90.2 ; Anxiety disorder, unspecified type F41.9 and Cannabis abuse F12.10 [facility] [address] [id number] [address] [place] [address] Apr, Attention deficit hyperactiv ity disorder (ADHD), combined type F90.2 [facility] [address] [id number] [address] [place] [address] Mar, Attention deficit hyperactiv ity disorder (ADHD), combined type F90.2 [facility] [address] [id number] [address] [place] [address] Mar, Anxiety disorder, unspecifie d type F41.9 [facility] [address] [id number] [address] [place] [address] Jan, Attention deficit hyperactiv ity disorder (ADHD), combined type F90.2 [facility] [address] [id number] [address] [place] [address] Jan, Anxiety disorder, unspecifie d type F41.9 [facility] [address] [facility] [id number] [address] [place] [address] Jan, Other chronic pain G89.29 ; Chronic hepatitis C without hepatic coma B18.2 and Bipolar 1 disorder F31.9 [facility] [address] [facility] [id number] [address] [place] [address] Dec, Attention deficit hyperactiv ity disorder (ADHD), combined type F90.2 [facility] [address] [id number] [address] [place] [address] Dec, Bipolar disorder, in partial remission, most recent episode hypomanic F31.71 ; Attention deficit hyperactivity disorder (ADHD), combined type F90.2 and Anxiety disorder, unspecified type F41.9 [facility] [address] [id number] [address] [place] [address] 28 [place], 2017 Bipolar disorder, in partial remission, most recent episode hypomanic F31.71 ; Attention deficit hyperactivity disorder (ADHD), combined type F90.2 and Anxiety disorder, unspecified type F41.9 [facility] [address] [id number] [address] [place] [address] Dec, Bipolar 1 disorder F31.9 and Attention deficit R41.840 [facility] [address] [id number] [address] [place] [address] Oct, Other chronic pain G89.29 ; Alopecia L65.9 and Screening, lipid Z13.220 [facility] [address] [id number] [address] [place] [address] Oct, [facility] [address] [id number] [address] [place] [address] Aug, [facility] [address] [id number] [address] [place] [address] Aug, Eustachian tube dysfunction, right H69.81 ; Vertigo R42 and Other chronic pain G89.29 [facility] [address] [id number] [address] [place] [address] Aug, [facility] [address] [id number] [address] [place] [address] Jun, [facility] [address] [id number] [address] [place] [address] Jun, Low back pain M54.5 and Othe r chronic pain G89.29 [facility] [address] [id number] [address] [place] [address] Jun, [facility] [address] [id number] [address] [place] [address] May, [facility] [address] [id number] [address] [place] [address] Jan, [facility] [address] [id number] [address] [place] [address] Dec, [facility] [address] [id number] [address] [place] [address] Dec, [facility] [address] [id number] [address] [place] [address] Jun, [facility] [address] [facility] [id number] [address] [place] [address] Apr, Eustachian tube dysfunction, unspecified laterality H69.80 ; Hot flashes N95.1 and Encounter for immunization Z23 [facility] [address] [id number] [address] [place] [address] Jan, [facility] [address] [id number] [address] [place] [address] Jan, [facility] [address] [facility] [id number] [address] [place] [address] Jan, [facility] [address] [facility] [id number] [address] [place] [address] Jan, [facility] [address] [facility] [id number] [address] [place] [address] Jan, Encounter to establish care V65.8 ; Bipolar 1 disorder 296.7 ; Abdominal pain 789.00 ; Constipation 564.00 ; Hard of hearing 389.9 and Drug abuse 305.90 [facility] [address] [id number] [address] [place] [address] Dec, [facility] [address] [id number] [address] [place] [address] October, [facility] [address] [facility] [id number] [address] [place] [address] October, [facility] [address] [facility] [id number] [address] [place] [address] Oct, [facility] [address] [facility] [id number] [address] [place] [address] Oct, [facility] [address] [id number] [address] [place] [address], [place] [address] Oct, [facility] [address] [id number] [address] [place] [address], [place] [address] Aug, [facility] [address] [id number] [address] [place] [address], [place] [address] Aug, [facility] [address] [id number] [address] [place] [address], [place] [address] Aug, [facility] [address] [id number] [address] [place] [address], [place] [address] Aug, 2014 [facility] [address] [id number] [address] [place] [address], [place] [address] Aug, 2014 [facility] [address] [id number] [address] [place] [address], [place] [address] Aug, 2014 [facility] [address] [id number] [address] [place] [address], [place] [address] Aug, 2014 [facility] [address] [id number] [address] [place] [address], [place] [address] Aug, 2014 [facility] [address] [id number] [address] [place] [address], [place] [address] Aug, 2014 [facility] [address] [id number] [address] [place] [address], [place] [address] Aug, 2014 [facility] [address] [id number] [address] [place] [address], [place] [address] Aug, 2014 [facility] [address] [id number] [address] [place] [address], [place] [address] Aug, 2014 [facility] [address] [id number] [address] [place] [address], [place] [address] Aug, 2014 [facility] [address] [id number] [address] [place] [address] Aug, 2014 [facility] [address] [id number] [address] [place] [address] Aug, [facility] [address] [id number] [address] [place] [address], [place] [address] Jul, [facility] [address] [id number] [address] [place] [address], [place] [address] Jul, [facility] [address] [id number] [address] [place] [address], [place] [address] Jul, [facility] [address] [id number] [address] [place] [address], [place] [address] Jul, [facility] [address] [id number] [address] [place] [address], [place] [address] Jul, [facility] [address] [id number] [address] [place] [address], [place] [address] Jul, [facility] [address] [id number] [address] [place] [address], [place] [address] Jul, [facility] [address] [id number] [address] [place] [address], [place] [address] Jul, [facility] [address] [id number] [address] [place] [address], [place] [address] Jun, [facility] [address] [id number] [address] [place] [address], [place] [address] Jun, [facility] [address] [id number] [address] [place] [address], [place] [address] Jun, [facility] [address] [id number] [address] [place] [address], [place] [address] 29 Jun, 2014 [facility] [address] [id number] [address] [place] [address], [place] [address] 18 Jun, 2014 [facility] [address] [id number] [address] [place] [address], [place] [address] Jun, [facility] [address] [id number] [address] [place] [address], [place] [address] Jun, [facility] [address] [id number] [address] [place] [address], [place] [address] Jun, [facility] [address] [id number] [address] [place] [address], [place] [address] Jun, [facility] [address] [id number] [address] [place] [address], [place] [address] Jun, [facility] [address] [id number] [address] [place] [address], [place] [address] Jun, [facility] [address] [id number] [address] [place] [address], [place] [address] May, [facility] [address] [id number] [address] [place] [address], [place] [address] May, [facility] [address] [id number] [address] [place] [address], [place] [address] May, [facility] [address] [id number] [address] [place] [address], [place] [address] May, [facility] [address] [id number] [address] [place] [address], [place] [address] May, [facility] [address] [id number] [address] [place] [address], [place] [address] May, [facility] [address] [id number] [address] [place] [address], [place] [address] May, [facility] [address] [id number] [address] [place] [address], [place] [address] Apr, [facility] [address] [id number] [address] [place] [address], [place] [address] Apr, [facility] [address] [id number] [address] [place] [address], [place] [address] Apr, [facility] [address] [id number] [address] [place] [address], [place] [address] Apr, [facility] [address] [id number] [address] [place] [address], [place] [address] Apr, [facility] [address] [id number] [address] [place] [address], [place] [address] Apr, [facility] [address] [id number] [address] [place] [address], [place] [address] Mar, [facility] [address] [id number] [address] [place] [address], [place] [address] Mar, [facility] [address] [id number] [address] [place] [address], [place] [address] Mar, [facility] [address] [id number] [address] [place] [address], [place] [address] Mar, [facility] [address] [id number] [address] [place] [address], [place] [address] Mar, [facility] [address] [id number] [address] [place] [address], [place] [address] Mar, [facility] [address] [id number] [address] [place] [address], [place] [address] Jan, [facility] [address] [id number] [address] [place] [address], [place] [address] Jan, [facility] [address] [id number] [address] [place] [address], [place] [address] Jan, [facility] [address] [id number] [address] [place] [address], [place] [address] Jan, [facility] [address] [id number] [address] [place] [address], [place] [address] Dec, [facility] [address] [id number] [address] [place] [address], [place] [address] Dec, [facility] [address] [id number] [address] [place] [address], [place] [address] Dec, [facility] [address] [id number] [address] [place] [address], [place] [address] Dec, [facility] [address] [id number] [address] [place] [address], [place] [address] Dec, [facility] [address] [id number] [address] [place] [address], [place] [address] Dec, [facility] [address] [id number] [address] [place] [address], [place] [address] Dec, [facility] [address] [id number] [address] [place] [address], [place] [address] Dec, [facility] [address] [id number] [address] [place] [address], [place] [address] Dec, [facility] [address] [id number] [address] [place] [address], [place] [address] Dec, [facility] [address] [id number] [address] [place] [address], [place] [address] Dec, [facility] [address] [id number] [address] [place] [address], [place] [address] Dec, [facility] [address] [id number] [address] [place] [address], [place] [address] October, [facility] [address] [id number] [address] [place] [address], [place] [address] October, [facility] [address] [id number] [address] [place] [address], [place] [address] October, [facility] [address] [id number] [address] [place] [address], [place] [address] October, [facility] [address] [id number] [address] [place] [address], [place] [address] October, [facility] [address] [id number] [address] [place] [address], [place] [address] October, [facility] [address] [id number] [address] [place] [address], [place] [address] Oct, [facility] [address] [id number] [address] [place] [address], [place] [address] Oct, [facility] [address] [id number] [facility] [place] [address] Oct, [facility] [address] [id number] [facility] [place] [address] Oct, [facility] [address] [id number] [facility] [place] [address] Oct, [facility] [address] [id number] [address] [place] [address], [place] [address] Oct, [facility] [address] [id number] [facility] [place] [address] Oct, [facility] [address] [id number] [address] [place] [address], [place] [address] Oct, [facility] [address] [id number] [address] [place] [address], [place] [address] Oct, [facility] [address] [id number] [address] [place] [address], [place] [address] Oct, [facility] [address] [id number] [address] [place] [address], [place] [address] Oct, [facility] [address] [id number] [address] [place] [address], [place] [address] Oct, [facility] [address] [id number] [address] [place] [address], [place] [address] Aug, [facility] [address] [id number] [address] [place] [address], [place] [address] Aug, [facility] [address] [id number] [address] [place] [address], [place] [address] Aug, [facility] [address] [id number] [address] [place] [address], [place] [address] Aug, [facility] [address] [id number] [address] [place] [address], [place] [address] Aug, [facility] [address] [id number] [address] [place] [address], [place] [address] Aug, [facility] [address] [id number] [facility] [place] [address] 04 Aug, 2013 [facility] [address] [id number] [address] [place] [address], [place] [address] Aug, [facility] [address] [id number] [address] [place] [address], [place] [address] Aug, [facility] [address] [id number] [address] [place] [address], [place] [address] 24 Aug, 2013 [facility] [address] [id number] [address] [place] [address], [place] [address] 24 Aug, 2013 [facility] [address] [id number] [address] [place] [address], [place] [address] Aug, [facility] [address] [id number] [address] [place] [address], [place] [address] Aug, [facility] [address] [id number] [address] [place] [address], [place] [address] 20 Aug, 2013 [facility] [address] [id number] [address] [place] [address], [place] [address] 14 Aug, 2013 [facility] [address] [id number] [address] [place] [address], [place] [address] 14 Aug, 2013 [facility] [address] [id number] [address] [place] [address], [place] [address] 14 Aug, 2013 [facility] [address] [id number] [address] [place] [address], [place] [address] 14 Aug, 2013 [facility] [address] [id number] [address] [place] [address], [place] [address] 07 Aug, 2013 [facility] [address] [id number] [address] [place] [address], [place] [address] 07 Aug, 2013 [facility] [address] [id number] [address] [place] [address], [place] [address] 06 Aug, 2013 [facility] [address] [id number] [address] [place] [address], [place] [address] Aug, [facility] [address] [id number] [address] [place] [address], [place] [address] Aug, [facility] [address] [id number] [address] [place] [address], [place] [address] Aug, [facility] [address] [id number] [address] [place] [address], [place] [address] Aug, [facility] [address] [id number] [address] [place] [address], [place] [address] Jul, [facility] [address] [id number] [address] [place] [address], [place] [address] Jul, [facility] [address] [id number] [address] [place] [address], [place] [address] Jul, [facility] [address] [id number] [address] [place] [address], [place] [address] Jul, [facility] [address] [id number] [address] [place] [address], [place] [address] Jul, [facility] [address] [id number] [address] [place] [address], [place] [address] Jul, [facility] [address] [id number] [address] [place] [address], [place] [address] Jul, [facility] [address] [id number] [address] [place] [address], [place] [address] Jul, [facility] [address] [id number] [address] [place] [address], [place] [address] Jul, [facility] [address] [id number] [address] [place] [address], [place] [address] Jul, [facility] [address] [id number] [address] [place] [address], [place] [address] Jul, [facility] [address] [id number] [address] [place] [address], [place] [address] Jul, [facility] [address] [id number] [address] [place] [address], [place] [address] Jul, [facility] [address] [id number] [address] [place] [address], [place] [address] Jul, [facility] [address] [id number] [address] [place] [address], [place] [address] Jul, [facility] [address] [id number] [address] [place] [address], [place] [address] Jul, [facility] [address] [id number] [address] [place] [address], [place] [address] Jul, [facility] [address] [id number] [address] [place] [address], [place] [address] Jul, [facility] [address] [id number] [address] [place] [address], [place] [address] Jul, [facility] [address] [id number] [address] [place] [address], [place] [address] Jul, [facility] [address] [id number] [address] [place] [address], [place] [address] Jun, [facility] [address] [id number] [address] [place] [address], [place] [address] Jun, [facility] [address] [id number] [address] [place] [address], [place] [address] 30 Jun, 2013 [facility] [address] [id number] [address] [place] [address], [place] [address] 30 Jun, 2013 [facility] [address] [id number] [address] [place] [address], [place] [address] Jun, [facility] [address] [id number] [address] [place] [address], [place] [address] Jun, [facility] [address] [id number] [address] [place] [address], [place] [address] Jun, [facility] [address] [id number] [address] [place] [address], [place] [address] Jun, [facility] [address] [id number] [address] [place] [address], [place] [address] Jun, [facility] [address] [id number] [address] [place] [address], [place] [address] Jun, [facility] [address] [id number] [address] [place] [address], [place] [address] Jun, [facility] [address] [id number] [address] [place] [address], [place] [address] Jun, [facility] [address] [id number] [address] [place] [address], [place] [address] Jun, [facility] [address] [id number] [address] [place] [address], [place] [address] Jun, [facility] [address] [id number] [address] [place] [address], [place] [address] Jun, [facility] [address] [id number] [address] [place] [address], [place] [address] Jun, [facility] [address] [id number] [address] [place] [address], [place] [address] Jun, [facility] [address] [id number] [address] [place] [address], [place] [address] 17 Jun, 2013 [facility] [address] [id number] [address] [place] [address], [place] [address] 17 Jun, 2013 [facility] [address] [id number] [address] [place] [address], [place] [address] 13 Jun, 2013 [facility] [address] [id number] [address] [place] [address], [place] [address] Jun, [facility] [address] [id number] [address] [place] [address], [place] [address] Jun, [facility] [address] [id number] [address] [place] [address], [place] [address] Jun, [facility] [address] [id number] [address] [place] [address], [place] [address] Jun, [facility] [address] [id number] [address] [place] [address], [place] [address] Jun, [facility] [address] [id number] [address] [place] [address], [place] [address] Jun, [facility] [address] [id number] [address] [place] [address], [place] [address] Jun, [facility] [address] [id number] [address] [place] [address], [place] [address] May, [facility] [address] [id number] [address] [place] [address], [place] [address] May, [facility] [address] [id number] [address] [place] [address], [place] [address] May, [facility] [address] [id number] [address] [place] [address] May, [facility] [address] [id number] [address] [place] [address], [place] [address] May, [facility] [address] [id number] [address] [place] [address] May, [facility] [address] [id number] [address] [place] [address] Apr, [facility] [address] [id number] [address] [place] [address] Apr, [facility] [address] [id number] [address] [place] [address], [place] [address] Apr, [facility] [address] [id number] [address] [place] [address] Apr, [facility] [address] [id number] [address] [place] [address], [place] [address] Apr, [facility] [address] [id number] [address] [place] [address], [place] [address] 15 Apr, 2013 [facility] [address] [id number] [address] [place] [address], [place] [address] 15 Apr, 2013 [facility] [address] [id number] [address] [place] [address], [place] [address] 01 Apr, 2013 [facility] [address] [id number] [address] [place] [address], [place] [address] 26 Mar, 2012 [facility] [address] [id number] [address] [place] [address], [place] [address] 24 Mar, 2012 [facility] [address] [id number] [address] [place] [address], [place] [address] 17 Mar, 2012 [facility] [address] [id number] [address] [place] [address], [place] [address] 17 Mar, 2012 [facility] [address] [id number] [address] [place] [address], [place] [address] 11 Mar, 2012 [facility] [address] [id number] [address] [place] [address], [place] [address] 10 Mar, 2012 [facility] [address] [id number] [address] [place] [address], [place] [address] 05 Mar, 2012 [facility] [address] [id number] [address] [place] [address], [place] [address] 04 Mar, 2013 [facility] [address] [id number] [address] [place] [address], [place] [address] 20 Jan, 2013 [facility] [address] [id number] [address] [place] [address], [place] [address] 19 Jan, 2013 [facility] [address] [id number] [address] [place] [address], [place] [address] 14 Jan, 2013 [facility] [address] [id number] [address] [place] [address], [place] [address] 12 Jan, 2013 [facility] [address] [id number] [address] [place] [address], [place] [address] 07 Jan, 2013 [facility] [address] [id number] [address] [place] [address], [place] [address] 05 Jan, 2013 [facility] [address] [id number] [address] [place] [address], [place] [address] 31 Dec, 2012 [facility] [address] [id number] [address] [place] [address], [place] [address] 24 Dec, 2012 [facility] [address] [id number] [address] [place] [address], [place] [address] Dec, [facility] [address] [id number] [address] [place] [address], [place] [address] Dec, [facility] [address] [id number] [address] [place] [address], [place] [address] 18 Dec, 2012 [facility] [address] [id number] [address] [place] [address], [place] [address] 17 Dec, 2012 [facility] [address] [id number] [address] [place] [address], [place] [address] 16 Dec, 2012 [facility] [address] [id number] [address] [place] [address], [place] [address] 16 Dec, 2012 [facility] [address] [id number] [address] [place] [address], [place] [address] 15 Dec, 2012 [facility] [address] [id number] [address] [place] [address], [place] [address] Dec, [facility] [address] [id number] [address] [place] [address], [place] [address] Dec, [facility] [address] [id number] [address] [place] [address], [place] [address] Dec, [facility] [address] [id number] [address] [place] [address], [place] [address] Dec, [facility] [address] [id number] [address] [place] [address], [place] [address] 17 Dec, 2012 [facility] [address] [id number] [address] [place] [address], [place] [address] Dec, [facility] [address] [id number] [address] [place] [address], [place] [address] Dec, [facility] [address] [id number] [address] [place] [address], [place] [address] October, [facility] [address] [id number] [address] [place] [address], [place] [address] October, [facility] [address] [id number] [address] [place] [address], [place] [address] October, [facility] [address] [id number] [address] [place] [address], [place] [address] October, [facility] [address] [id number] [address] [place] [address], [place] [address] October, [facility] [address] [id number] [address] [place] [address], [place] [address] October, [facility] [address] [id number] [address] [place] [address], [place] [address] October, [facility] [address] [id number] [address] [place] [address], [place] [address] Oct, [facility] [address] [id number] [address] [place] [address], [place] [address] Oct, [facility] [address] [id number] [address] [place] [address], [place] [address] Oct, [facility] [address] [id number] [address] [place] [address], [place] [address] Oct, [facility] [address] [id number] [address] [place] [address], [place] [address] Oct, [facility] [address] [id number] [address] [place] [address], [place] [address] 18 Oct, 2012 [facility] [address] [id number] [address] [place] [address], [place] [address] Oct, [facility] [address] [id number] [address] [place] [address], [place] [address] 15 Oct, 2012 [facility] [address] [id number] [address] [place] [address], [place] [address] Oct, [facility] [address] [id number] [address] [place] [address], [place] [address] Oct, [facility] [address] [id number] [address] [place] [address], [place] [address] Oct, [facility] [address] [id number] [address] [place] [address], [place] [address] Oct, [facility] [address] [id number] [address] [place] [address], [place] [address] Aug, [facility] [address] [id number] [address] [place] [address], [place] [address] Aug, [facility] [address] [id number] [address] [place] [address], [place] [address] Aug, [facility] [address] [id number] [address] [place] [address], [place] [address] Aug, [facility] [address] [id number] [address] [place] [address], [place] [address] 05 Aug, 2012 [facility] [address] [id number] [address] [place] [address], [place] [address] 05 Aug, 2012 [facility] [address] [id number] [address] [place] [address], [place] [address] 20 Aug, 2012 [facility] [address] [id number] [address] [place] [address], [place] [address] 14 Aug, 2012 [facility] [address] [id number] [address] [place] [address], [place] [address] Aug, [facility] [address] [id number] [address] [place] [address], [place] [address] Aug, [facility] [address] [id number] [address] [place] [address], [place] [address] Jul, [facility] [address] [id number] [address] [place] [address], [place] [address] 15 Jul, 2012 [facility] [address] [id number] [address] [place] [address], [place] [address] 08 Jul, 2012 [facility] [address] [id number] [address] [place] [address], [place] [address] 20 Jun, 2012 [facility] [address] [id number] [address] [place] [address], [place] [address] 18 Jun, 2012 [facility] [address] [id number] [address] [place] [address], [place] [address] 18 Jun, 2012 [facility] [address] [id number] [address] [place] [address], [place] [address] 18 Jun, 2012 [facility] [address] [id number] [address] [place] [address], [place] [address] 18 Jun, 2012 [facility] [address] [id number] [address] [place] [address], [place] [address] 14 Jun, 2012 [facility] [address] [id number] [address] [place] [address], [place] [address] 14 Jun, 2012 [facility] [address] [id number] [address] [place] [address], [place] [address] 13 Jun, 2012 [facility] [address] [id number] [address] [place] [address], [place] [address] 13 Jun, 2012 [facility] [address] [id number] [address] [place] [address], [place] [address] 11 Jun, 2012 [facility] [address] [id number] [address] [place] [address], [place] [address] 11 Jun, 2012 [facility] [address] [id number] [address] [place] [address], [place] [address] 11 Jun, 2012 [facility] [address] [id number] [address] [place] [address], [place] [address] 11 Jun, 2012 [facility] [address] [id number] [address] [place] [address], [place] [address] 07 Jun, 2012 [facility] [address] [id number] [address] [place] [address], [place] [address] Jun, [facility] [address] [id number] [address] [place] [address], [place] [address] Jun, [facility] [address] [id number] [address] [place] [address], [place] [address] Jun, [facility] [address] [id number] [address] [place] [address], [place] [address] Jun, [facility] [address] [id number] [address] [place] [address], [place] [address] Jun, [facility] [address] [id number] [address] [place] [address], [place] [address] Jun, [facility] [address] [id number] [address] [place] [address], [place] [address] Jun, [facility] [address] [id number] [address] [place] [address], [place] [address] Jun, [facility] [address] [id number] [address] [place] [address], [place] [address] Jun, [facility] [address] [id number] [address] [place] [address], [place] [address] May, [facility] [address] [id number] [address] [place] [address], [place] [address] May, [facility] [address] [id number] [address] [place] [address], [place] [address] May, [facility] [address] [id number] [address] [place] [address], [place] [address] May, [facility] [address] [id number] [address] [place] [address], [place] [address] May, [facility] [address] [id number] [address] [place] [address], [place] [address] May, [facility] [address] [id number] [address] [place] [address], [place] [address] May, [facility] [address] [id number] [address] [place] [address], [place] [address] May, [facility] [address] [id number] [address] [place] [address], [place] [address] Apr, [facility] [address] [id number] [address] [place] [address], [place] [address] Apr, [facility] [address] [id number] [address] [place] [address], [place] [address] Apr, [facility] [address] [id number] [address] [place] [address], [place] [address] Apr, [facility] [address] [id number] [address] [place] [address], [place] [address] Apr, [facility] [address] [id number] [address] [place] [address], [place] [address] Apr, [facility] [address] [id number] [address] [place] [address], [place] [address] Apr, [facility] [address] [id number] [address] [place] [address], [place] [address] Apr, [facility] [address] [id number] [address] [place] [address], [place] [address] Apr, [facility] [address] [id number] [address] [place] [address], [place] [address] Apr, [facility] [address] [id number] [address] [place] [address], [place] [address] Apr, [facility] [address] [id number] [address] [place] [address], [place] [address] Apr, [facility] [address] [id number] [address] [place] [address], [place] [address] Mar, [facility] [address] [id number] [address] [place] [address] 18 Mar, 2012 [facility] [address] [id number] [address] [place] [address], [place] [address] Mar, [facility] [address] [id number] [address] [place] [address] Mar, [facility] [address] [id number] [address] [place] [id number] Mar, [facility] [address] [id number] [address] [place] [id number] Mar, [facility] [address] [id number] [address] [place] [address], [place] [address] Mar, [facility] [address] [id number] [address] [place] [id number] Jan, [facility] [address] [id number] [address] [place] [address] Jan, [facility] [address] [id number] [address] [place] [id number] Jan, [facility] [address] [id number] [address] [place] [id number] Jan, [facility] [address] [id number] [address] [place] [address] Jan, [facility] [address] [id number] [address] [place] [phone] Jan, [facility] [address] [id number] [address] [place] [phone] Jan, [facility] [address] [id number] [address] [place] [address], [place] [address] 14 Feb, 2012 [facility] [address] [id number] [address] [place] [phone] Jan, [facility] [address] [id number] [address] [place] [phone] Jan, [facility] [address] [id number] [address] [place] [address], [place] [address] Jan, [facility] [address] [id number] [address] [place] [address], [place] [address] Dec, [facility] [address] [id number] [address] [place] [address], [place] [address] Dec, [facility] [address] [id number] [address] [place] [address], [place] [address] Dec, [facility] [address] [id number] [address] [place] [address], [place] [address] Dec, [facility] [address] [id number] [address] [place] [address], [place] [address] Dec, [facility] [address] [id number] [address] [place] [address], [place] [address] Dec, [facility] [address] [id number] [address] [place] [address], [place] [address] Dec, [facility] [address] [id number] [address] [place] [address], [place] [address] 17 Jan, 2012 [facility] [address] [id number] [address] [place] [address], [place] [address] 16 Jan, 2012 [facility] [address] [id number] [address] [place] [address], [place] [address] Dec, [facility] [address] [id number] [address] [place] [address], [place] [address] Dec, [facility] [address] [id number] [address] [place] [address], [place] [address] Dec, [facility] [address] [id number] [address] [place] [address], [place] [address] Dec, [facility] [address] [id number] [address] [place] [address], [place] [address] Dec, [facility] [address] [id number] [address] [place] [address], [place] [address] Dec, [facility] [address] [id number] [address] [place] [address], [place] [address] Dec, [facility] [address] [id number] [address] [place] [address], [place] [address] Dec, [facility] [address] [id number] [address] [place] [address], [place] [address] Dec, [facility] [address] [id number] [address] [place] [address], [place] [address] Dec, [facility] [address] [id number] [address] [place] [address], [place] [address] October, [facility] [address] [id number] [address] [place] [address], [place] [address] October, [facility] [address] [id number] [address] [place] [address], [place] [address] October, [facility] [address] [id number] [address] [place] [address], [place] [address] October, [facility] [address] [id number] [address] [place] [address], [place] [address] October, [facility] [address] [id number] [address] [place] [address], [place] [address] October, [facility] [address] [id number] [address] [place] [address], [place] [address] Oct, [facility] [address] [id number] [address] [place] [address], [place] [address] Oct, [facility] [address] [id number] [address] [place] [address], [place] [address] Oct, [facility] [address] [id number] [address] [place] [address], [place] [address] Oct, [facility] [address] [id number] [address] [place] [address], [place] [address] Oct, [facility] [address] [id number] [address] [place] [address], [place] [address] Oct, [facility] [address] [id number] [address] [place] [address], [place] [address] Oct, [facility] [address] [id number] [address] [place] [address], [place] [address] 29 Sep, 2011 [facility] [address] [id number] [address] [place] [address], [place] [address] 29 Sep, 2011 [facility] [address] [id number] [address] [place] [address], [place] [address] Aug, [facility] [address] [id number] [address] [place] [address], [place] [address] Aug, [facility] [address] [id number] [address] [place] [address], [place] [address] Aug, [facility] [address] [id number] [address] [place] [address], [place] [address] Aug, [facility] [address] [id number] [address] [place] [address], [place] [address] Aug, [facility] [address] [id number] [address] [place] [address], [place] [address] Aug, [facility] [address] [id number] [address] [place] [address], [place] [address] Aug, [facility] [address] [id number] [address] [place] [address], [place] [address] Jul, [facility] [address] [id number] [address] [place] [address], [place] [address] Jul, [facility] [address] [id number] [address] [place] [address], [place] [address] Jul, [facility] [address] [id number] [address] [place] [address], [place] [address] Jul, [facility] [address] [id number] [address] [place] [address], [place] [address] Jun, [facility] [address] [id number] [address] [place] [address], [place] [address] Jun, [facility] [address] [id number] [address] [place] [address], [place] [address] May, [facility] [address] [id number] [address] [place] [address], [place] [address] May, [facility] [address] [id number] [address] [place] [address], [place] [address] May, [facility] [address] [id number] [address] [place] [address], [place] [address] May, [facility] [address] [id number] [address] [place] [address], [place] [address] May, [facility] [address] [id number] [address] [place] [address], [place] [address] Apr, [facility] [address] [id number] [address] [place] [address], [place] [address] Apr, [facility] [address] [id number] [address] [place] [address], [place] [address] Apr, [facility] [address] [id number] [address] [place] [address], [place] [address] 15 Jan, 2011 [facility] [address] [id number] [address] [place] [address], [place] [address] Dec, [facility] [address] [id number] [address] [place] [address], [place] [address] October, [facility] [address] [id number] [address] [place] [address], [place] [address] Jun, [facility] [address] [id number] [address] [place] [address], [place] [address] 23 Apr, 2009 [facility] [address] [id number] [address] [place] [address], [place] [address] 13 Apr, 2009 [facility] [address] [id number] [address] [place] [address], [place] [address] Apr, [facility] [address] [facility] [id number] [address] [place] [address] Jun, IMMUNIZATIONS No Known Immunizations SOCIAL HISTORY [...]
--- OUTSIDE RECORDS SUMMARY | 2020-01-25 12:36 | XMS REPORT ---
Author Author Ana Iraheta Organization [facility] Address [address] [place] [address] Care Team Providers Care Applications Packager Name Role Phone MELISA Iraheta Unavailable PROBLEMS Type Condition ICD9-CM Code [id number] Code Onset Dates Condition S tatus SNOMED Code Problem Attention deficit R41.840 Active 76 534879 Problem Chronic hepatitis C without hepatic coma B18.2 Active 471501628 Problem Cannabis abuse F12.10 Active 92780 009 Problem Bipolar disorder, in partial remission, most rec ent episode hypomanic F31.71 Active 108742606 Problem Attention deficit hyperactivity disorder (ADHD), combi luciano type F90.2 Active 77221825 Problem Bipolar 1 disorder F31.9 Active 3 86199943 Problem H/O laminectomy Z98.89 Active 1616 04437 Problem Other chronic pain G89.29 Active 8 0720479 Problem Anxiety disorder, unspecified type F41.9 Active 374213679 ALLERGIES No Information ENCOUNTERS Encounter Location Date Diagnosis [facility] [address] [facility] [id number] [address] [place] [address] Mar, [facility] [address] [facility] [id number] [address] [place] [phone] Dec, Other chronic pain G89.29 an d Low back pain M54.5 [facility] [address] [facility] [id number] [address] [place] [phone] October, [facility] [address] [facility] [id number] [address] [place] [address] October, [facility] [address] [facility] [id number] [address] [place] [address] October, [facility] [address] [facility] [id number] [address] [place] [address] October, Other chronic pain G89.29 an d Chronic hepatitis C without hepatic coma B18.2 [facility] [address] [id number] [address] [place] [address] Aug, Bipolar disorder, in partial remission, most recent episode hypomanic F31.71 ; Attention deficit hyperactivity disorder (ADHD), combined type F90.2 and Anxiety disorder, unspecified type F41.9 [facility] [address] [id number] [address] [place] [address] Aug, [facility] [address] [id number] [address] [place] [phone] Aug, Bipolar disorder, in partial remission, most recent episode hypomanic F31.71 [facility] [address] [id number] [address] [place] [address] Aug, [facility] [address] [id number] [address] [place] [address] Aug, Bipolar disorder, in partial remission, most recent episode hypomanic F31.71 [facility] [address] [id number] [address] [place] [address] Aug, Bipolar disorder, in partial remission, most recent episode hypomanic F31.71 ; Attention deficit hyperactivity disorder (ADHD), combined type F90.2 and Anxiety disorder, unspecified type F41.9 [facility] [address] [id number] [address] [place] [address] Aug, Low back pain M54.5 and Pain in left wrist M25.532 [facility] [address] [id number] [address] [place] [address] Aug, [facility] [address] [facility] [id number] [address] [place] [address] Jun, [facility] [address] [id number] [address] [place] [address] Apr, Bipolar disorder, in partial remission, most recent episode hypomanic F31.71 [facility] [address] [id number] [address] [place] [address] Apr, [facility] [address] [facility] [id number] [address] [place] [address] Apr, Bipolar disorder, in partial remission, most recent episode hypomanic F31.71 ; Attention deficit hyperactivity disorder (ADHD), combined type F90.2 ; Anxiety disorder, unspecified type F41.9 and 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 [facility] [address] [id number] [address] [place] [address] Apr, Bipolar disorder, in partial remission, most recent episode hypomanic F31.71 [facility] [address] [facility] [id number] [address] [place] [address] Apr, Bipolar disorder, in partial remission, most recent episode hypomanic F31.71 [facility] [address] [facility] [id number] [address] [place] [address] Mar, [place] [id number] [facility] [id number] [address] [place] [address] Mar, Bipolar disorder, in partial remission, most recent episode hypomanic F31.71 ; Encounter for immunization Z23 and Low back pain M54.5 [facility] [address] [id number] [address] [place] [phone] 17 Mar, 2018 Bipolar disorder, in partial remission, most recent episode hypomanic F31.71 [facility] [address] [facility] [id number] [address] [place] [address] Mar, Bipolar disorder, in partial remission, most recent episode hypomanic F31.71 [facility] [address] [facility] [id number] [address] [place] [address] Jan, Bipolar disorder, in partial remission, most recent episode hypomanic F31.71 [facility] [address] [facility] [id number] [address] [place] [address] Jan, Bipolar disorder, in partial remission, most recent episode hypomanic F31.71 [facility] [address] [id number] [address] [place] [address] Dec, Bipolar disorder, in partial remission, most recent episode hypomanic F31.71 [facility] [address] [id number] [address] [place] [address] Dec, Bipolar disorder, in partial remission, most recent episode hypomanic F31.71 ; Attention deficit hyperactivity disorder (ADHD), combined type F90.2 ; Anxiety disorder, unspecified type F41.9 and Other alf (current) 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 Z79.899 [facility] [address] [id number] [address] [place] [address] Dec, Bipolar disorder, in partial remission, most recent episode hypomanic F31.71 [facility] [address] [id number] [address] [place] [address] Dec, Bipolar disorder, in partial remission, most recent episode hypomanic F31.71 [facility] [address] [id number] [address] [place] [address] October, Bipolar disorder, in partial remission, most recent episode hypomanic F31.71 [facility] [address] [id number] [address] [place] [id number] October, [facility] [address] [facility] [id number] [address] [place] [phone] October, [facility] [address] [facility] [id number] [address] [place] [address] Oct, Bipolar disorder, in partial remission, most recent episode hypomanic F31.71 ; Attention deficit hyperactivity disorder (ADHD), combined type F90.2 ; Anxiety disorder, unspecified type F41.9 and Encounter for drug screening Z02.83 [facility] [address] [id number] [address] [place] [address] Oct, Bipolar disorder, in partial remission, most recent episode hypomanic F31.71 [facility] [address] [facility] [id number] [address] [place] [address] Oct, Bipolar disorder, in partial remission, most recent episode hypomanic F31.71 [facility] [address] [id number] [address] [place] [address] Aug, Bipolar disorder, in partial remission, most recent episode hypomanic F31.71 [facility] [address] [id number] [address] [place] [address] Aug, Bipolar disorder, in partial remission, most recent episode hypomanic F31.71 [facility] [address] [id number] [address] [place] [address] Aug, Bipolar disorder, in partial remission, most recent episode hypomanic F31.71 [facility] [address] [facility] [id number] [address] [place] [address] Jul, Bipolar disorder, in partial remission, most recent episode hypomanic F31.71 ; Attention deficit hyperactivity disorder (ADHD), combined type F90.2 and Anxiety disorder, unspecified type F41.9 [facility] [address] [facility] [id number] [address] [place] [address] Jul, Bipolar disorder, in partial remission, most recent episode hypomanic F31.71 [facility] [address] [facility] [id number] [address] [place] [address] Jun, Bipolar disorder, in partial remission, most recent episode hypomanic F31.71 [facility] [address] [facility] [id number] [address] [place] [address] May, Bipolar disorder, in partial remission, most recent episode hypomanic F31.71 [facility] [address] [id number] [address] [place] [address] May, Bipolar disorder, in partial remission, most recent episode hypomanic F31.71 [facility] [address] [id number] [address] [place] [address] Apr, [facility] [address] [facility] [id number] [address] [place] [address] Apr, Bipolar disorder, in partial remission, most recent episode hypomanic F31.71 ; Attention deficit hyperactivity disorder (ADHD), combined type F90.2 ; Anxiety disorder, unspecified type F41.9 and Cannabis abuse F12.10 [facility] [address] [id number] [address] [place] [address] Apr, Attention deficit hyperactiv ity disorder (ADHD), combined type F90.2 [facility] [address] [id number] [address] [place] [address] Mar, Attention deficit hyperactiv ity disorder (ADHD), combined type F90.2 [facility] [address] [id number] [address] [place] [address] Mar, Anxiety disorder, unspecifie d type F41.9 [facility] [address] [id number] [address] [place] [address] Jan, Attention deficit hyperactiv ity disorder (ADHD), combined type F90.2 [facility] [address] [id number] [address] [place] [address] Jan, Anxiety disorder, unspecifie d type F41.9 [facility] [address] [facility] [id number] [address] [place] [address] Jan, Other chronic pain G89.29 ; Chronic hepatitis C without hepatic coma B18.2 and Bipolar 1 disorder F31.9 [facility] [address] [facility] [id number] [address] [place] [address] Dec, Attention deficit hyperactiv ity disorder (ADHD), combined type F90.2 [facility] [address] [id number] [address] [place] [address] Dec, Bipolar disorder, in partial remission, most recent episode hypomanic F31.71 ; Attention deficit hyperactivity disorder (ADHD), combined type F90.2 and Anxiety disorder, unspecified type F41.9 [facility] [address] [id number] [address] [place] [address] 28 [place], 2017 Bipolar disorder, in partial remission, most recent episode hypomanic F31.71 ; Attention deficit hyperactivity disorder (ADHD), combined type F90.2 and Anxiety disorder, unspecified type F41.9 [facility] [address] [id number] [address] [place] [address] Dec, Bipolar 1 disorder F31.9 and Attention deficit R41.840 [facility] [address] [id number] [address] [place] [address] Oct, Other chronic pain G89.29 ; Alopecia L65.9 and Screening, lipid Z13.220 [facility] [address] [id number] [address] [place] [address] Oct, [facility] [address] [id number] [address] [place] [phone] Aug, [facility] [address] [id number] [address] [place] [address] Aug, Eustachian tube dysfunction, right H69.81 ; Vertigo R42 and Other chronic pain G89.29 [facility] [address] [id number] [address] [place] [address] Aug, [facility] [address] [id number] [address] [place] [address] Jun, [facility] [address] [id number] [address] [place] [address] Jun, Low back pain M54.5 and Othe r chronic pain G89.29 [facility] [address] [id number] [address] [place] [address] Jun, [facility] [address] [id number] [address] [place] [phone] May, [facility] [address] [id number] [address] [place] [address] Jan, [facility] [address] [id number] [address] [place] [address] Dec, [facility] [address] [id number] [address] [place] [address] Dec, [facility] [address] [id number] [address] [place] [address] Jun, [facility] [address] [facility] [id number] [address] [place] [address] Apr, Eustachian tube dysfunction, unspecified laterality H69.80 ; Hot flashes N95.1 and Encounter for immunization Z23 [facility] [address] [id number] [address] [place] [address] Jan, [facility] [address] [id number] [address] [place] [address] Jan, [facility] [address] [facility] [id number] [address] [place] [phone] Jan, [facility] [address] [facility] [id number] [address] [place] [phone] Jan, [facility] [address] [facility] [id number] [address] [place] [address] Jan, Encounter to establish care V65.8 ; Bipolar 1 disorder 296.7 ; Abdominal pain 789.00 ; Constipation 564.00 ; Hard of hearing 389.9 and Drug abuse 305.90 [facility] [address] [id number] [address] [place] [address] Dec, [facility] [address] [id number] [address] [place] [id number] October, [facility] [address] [facility] [id number] [address] [place] [phone] October, [facility] [address] [facility] [id number] [address] [place] [address] Oct, [facility] [address] [facility] [id number] [address] [place] [address] Oct, [facility] [address] [id number] [address] [place] [address], [place] [address] Oct, [facility] [address] [id number] [address] [place] [address], [place] [address] Aug, [facility] [address] [id number] [address] [place] [address], [place] [address] Aug, [facility] [address] [id number] [address] [place] [address], [place] [address] Aug, [facility] [address] [id number] [address] [place] [address], [place] [address] Aug, 2014 [facility] [address] [id number] [address] [place] [address], [place] [address] Aug, 2014 [facility] [address] [id number] [address] [place] [address], [place] [address] Aug, 2014 [facility] [address] [id number] [address] [place] [address], [place] [address] Aug, 2014 [facility] [address] [id number] [address] [place] [address], [place] [address] Aug, 2014 [facility] [address] [id number] [address] [place] [address], [place] [address] Aug, 2014 [facility] [address] [id number] [address] [place] [address], [place] [address] Aug, 2014 [facility] [address] [id number] [address] [place] [address], [place] [address] Aug, 2014 [facility] [address] [id number] [address] [place] [address], [place] [address] Aug, 2014 [facility] [address] [id number] [address] [place] [address], [place] [address] Aug, 2014 [facility] [address] [id number] [address] [place] [address] Aug, 2014 [facility] [address] [id number] [address] [place] [address] Aug, [facility] [address] [id number] [address] [place] [address], [place] [address] Jul, [facility] [address] [id number] [address] [place] [address], [place] [address] Jul, [facility] [address] [id number] [address] [place] [address], [place] [address] Jul, [facility] [address] [id number] [address] [place] [address], [place] [address] Jul, [facility] [address] [id number] [address] [place] [address], [place] [address] Jul, [facility] [address] [id number] [address] [place] [address], [place] [address] Jul, [facility] [address] [id number] [address] [place] [address], [place] [address] Jul, [facility] [address] [id number] [address] [place] [address], [place] [address] Jul, [facility] [address] [id number] [address] [place] [address], [place] [address] Jun, [facility] [address] [id number] [address] [place] [address], [place] [address] Jun, [facility] [address] [id number] [address] [place] [address], [place] [address] Jun, [facility] [address] [id number] [address] [place] [address], [place] [address] 29 Jun, 2014 [facility] [address] [id number] [address] [place] [address], [place] [address] 18 Jun, 2014 [facility] [address] [id number] [address] [place] [address], [place] [address] Jun, [facility] [address] [id number] [address] [place] [address], [place] [address] Jun, [facility] [address] [id number] [address] [place] [address], [place] [address] Jun, [facility] [address] [id number] [address] [place] [address], [place] [address] Jun, [facility] [address] [id number] [address] [place] [address], [place] [address] Jun, [facility] [address] [id number] [address] [place] [address], [place] [address] Jun, [facility] [address] [id number] [address] [place] [address], [place] [address] May, [facility] [address] [id number] [address] [place] [address], [place] [address] May, [facility] [address] [id number] [address] [place] [address], [place] [address] May, [facility] [address] [id number] [address] [place] [address], [place] [address] May, [facility] [address] [id number] [address] [place] [address], [place] [address] May, [facility] [address] [id number] [address] [place] [address], [place] [address] May, [facility] [address] [id number] [address] [place] [address], [place] [address] May, [facility] [address] [id number] [address] [place] [address], [place] [address] Apr, [facility] [address] [id number] [address] [place] [address], [place] [address] Apr, [facility] [address] [id number] [address] [place] [address], [place] [address] Apr, [facility] [address] [id number] [address] [place] [address], [place] [address] Apr, [facility] [address] [id number] [address] [place] [address], [place] [address] Apr, [facility] [address] [id number] [address] [place] [address], [place] [address] Apr, [facility] [address] [id number] [address] [place] [address], [place] [address] Mar, [facility] [address] [id number] [address] [place] [address], [place] [address] Mar, [facility] [address] [id number] [address] [place] [address], [place] [address] Mar, [facility] [address] [id number] [address] [place] [address], [place] [address] Mar, [facility] [address] [id number] [address] [place] [address], [place] [address] Mar, [facility] [address] [id number] [address] [place] [address], [place] [address] Mar, [facility] [address] [id number] [address] [place] [address], [place] [address] Jan, [facility] [address] [id number] [address] [place] [address], [place] [address] Jan, [facility] [address] [id number] [address] [place] [address], [place] [address] Jan, [facility] [address] [id number] [address] [place] [address], [place] [address] Jan, [facility] [address] [id number] [address] [place] [address], [place] [address] Dec, [facility] [address] [id number] [address] [place] [address], [place] [address] Dec, [facility] [address] [id number] [address] [place] [address], [place] [address] Dec, [facility] [address] [id number] [address] [place] [address], [place] [address] Dec, [facility] [address] [id number] [address] [place] [address], [place] [address] Dec, [facility] [address] [id number] [address] [place] [address], [place] [address] Dec, [facility] [address] [id number] [address] [place] [address], [place] [address] Dec, [facility] [address] [id number] [address] [place] [address], [place] [address] Dec, [facility] [address] [id number] [address] [place] [address], [place] [address] Dec, [facility] [address] [id number] [address] [place] [address], [place] [address] Dec, [facility] [address] [id number] [address] [place] [address], [place] [address] Dec, [facility] [address] [id number] [address] [place] [address], [place] [address] Dec, [facility] [address] [id number] [address] [place] [address], [place] [address] October, [facility] [address] [id number] [address] [place] [address], [place] [address] October, [facility] [address] [id number] [address] [place] [address], [place] [address] October, [facility] [address] [id number] [address] [place] [address], [place] [address] October, [facility] [address] [id number] [address] [place] [address], [place] [address] October, [facility] [address] [id number] [address] [place] [address], [place] [address] October, [facility] [address] [id number] [address] [place] [address], [place] [address] Oct, [facility] [address] [id number] [address] [place] [address], [place] [address] Oct, [facility] [address] [id number] [address] [place] [address] Oct, [facility] [address] [id number] [address] [place] [address] Oct, [facility] [address] [id number] [address] [place] [address] Oct, [facility] [address] [id number] [address] [place] [address], [place] [address] Oct, [facility] [address] [id number] [facility] [place] [address] Oct, [facility] [address] [id number] [address] [place] [address], [place] [address] Oct, [facility] [address] [id number] [address] [place] [address], [place] [address] Oct, [facility] [address] [id number] [address] [place] [address], [place] [address] Oct, [facility] [address] [id number] [address] [place] [address], [place] [address] Oct, [facility] [address] [id number] [address] [place] [address], [place] [address] Oct, [facility] [address] [id number] [address] [place] [address], [place] [address] Aug, [facility] [address] [id number] [address] [place] [address], [place] [address] Aug, [facility] [address] [id number] [address] [place] [address], [place] [address] Aug, [facility] [address] [id number] [address] [place] [address], [place] [address] Aug, [facility] [address] [id number] [address] [place] [address], [place] [address] Aug, [facility] [address] [id number] [address] [place] [address], [place] [address] Aug, [facility] [address] [id number] [facility] [place] [address] 04 Aug, 2013 [facility] [address] [id number] [address] [place] [address], [place] [address] Aug, [facility] [address] [id number] [address] [place] [address], [place] [address] Aug, [facility] [address] [id number] [address] [place] [address], [place] [address] 24 Aug, 2013 [facility] [address] [id number] [address] [place] [address], [place] [address] 24 Aug, 2013 [facility] [address] [id number] [address] [place] [address], [place] [address] Aug, [facility] [address] [id number] [address] [place] [address], [place] [address] Aug, [facility] [address] [id number] [address] [place] [address], [place] [address] 20 Aug, 2013 [facility] [address] [id number] [address] [place] [address], [place] [address] 14 Aug, 2013 [facility] [address] [id number] [address] [place] [address], [place] [address] 14 Aug, 2013 [facility] [address] [id number] [address] [place] [address], [place] [address] 14 Aug, 2013 [facility] [address] [id number] [address] [place] [address], [place] [address] 14 Aug, 2013 [facility] [address] [id number] [address] [place] [address], [place] [address] 07 Aug, 2013 [facility] [address] [id number] [address] [place] [address], [place] [address] 07 Aug, 2013 [facility] [address] [id number] [address] [place] [address], [place] [address] 06 Aug, 2013 [facility] [address] [id number] [address] [place] [address], [place] [address] Aug, [facility] [address] [id number] [address] [place] [address], [place] [address] Aug, [facility] [address] [id number] [address] [place] [address], [place] [address] Aug, [facility] [address] [id number] [address] [place] [address], [place] [address] Aug, [facility] [address] [id number] [address] [place] [address], [place] [address] Jul, [facility] [address] [id number] [address] [place] [address], [place] [address] Jul, [facility] [address] [id number] [address] [place] [address], [place] [address] Jul, [facility] [address] [id number] [address] [place] [address], [place] [address] Jul, [facility] [address] [id number] [address] [place] [address], [place] [address] Jul, [facility] [address] [id number] [address] [place] [address], [place] [address] Jul, [facility] [address] [id number] [address] [place] [address], [place] [address] Jul, [facility] [address] [id number] [address] [place] [address], [place] [address] Jul, [facility] [address] [id number] [address] [place] [address], [place] [address] Jul, [facility] [address] [id number] [address] [place] [address], [place] [address] Jul, [facility] [address] [id number] [address] [place] [address], [place] [address] Jul, [facility] [address] [id number] [address] [place] [address], [place] [address] Jul, [facility] [address] [id number] [address] [place] [address], [place] [address] Jul, [facility] [address] [id number] [address] [place] [address], [place] [address] Jul, [facility] [address] [id number] [address] [place] [address], [place] [address] Jul, [facility] [address] [id number] [address] [place] [address], [place] [address] Jul, [facility] [address] [id number] [address] [place] [address], [place] [address] Jul, [facility] [address] [id number] [address] [place] [address], [place] [address] Jul, [facility] [address] [id number] [address] [place] [address], [place] [address] Jul, [facility] [address] [id number] [address] [place] [address], [place] [address] Jul, [facility] [address] [id number] [address] [place] [address], [place] [address] Jun, [facility] [address] [id number] [address] [place] [address], [place] [address] Jun, [facility] [address] [id number] [address] [place] [address], [place] [address] 30 Jun, 2013 [facility] [address] [id number] [address] [place] [address], [place] [address] 30 Jun, 2013 [facility] [address] [id number] [address] [place] [address], [place] [address] Jun, [facility] [address] [id number] [address] [place] [address], [place] [address] Jun, [facility] [address] [id number] [address] [place] [address], [place] [address] Jun, [facility] [address] [id number] [address] [place] [address], [place] [address] Jun, [facility] [address] [id number] [address] [place] [address], [place] [address] Jun, [facility] [address] [id number] [address] [place] [address], [place] [address] Jun, [facility] [address] [id number] [address] [place] [address], [place] [address] Jun, [facility] [address] [id number] [address] [place] [address], [place] [address] Jun, [facility] [address] [id number] [address] [place] [address], [place] [address] Jun, [facility] [address] [id number] [address] [place] [address], [place] [address] Jun, [facility] [address] [id number] [address] [place] [address], [place] [address] Jun, [facility] [address] [id number] [address] [place] [address], [place] [address] Jun, [facility] [address] [id number] [address] [place] [address], [place] [address] Jun, [facility] [address] [id number] [address] [place] [address], [place] [address] 17 Jun, 2013 [facility] [address] [id number] [address] [place] [address], [place] [address] 17 Jun, 2013 [facility] [address] [id number] [address] [place] [address], [place] [address] 13 Jun, 2013 [facility] [address] [id number] [address] [place] [address], [place] [address] Jun, [facility] [address] [id number] [address] [place] [address], [place] [address] Jun, [facility] [address] [id number] [address] [place] [address], [place] [address] Jun, [facility] [address] [id number] [address] [place] [address], [place] [address] Jun, [facility] [address] [id number] [address] [place] [address], [place] [address] Jun, [facility] [address] [id number] [address] [place] [address], [place] [address] Jun, [facility] [address] [id number] [address] [place] [address], [place] [address] Jun, [facility] [address] [id number] [address] [place] [address], [place] [address] May, [facility] [address] [id number] [address] [place] [address], [place] [address] May, [facility] [address] [id number] [address] [place] [address], [place] [address] May, [facility] [address] [id number] [address] [place] [address] May, [facility] [address] [id number] [address] [place] [address], [place] [address] May, [facility] [address] [id number] [address] [place] [address] May, [facility] [address] [id number] [address] [place] [address] Apr, [facility] [address] [id number] [address] [place] [address] Apr, [facility] [address] [id number] [address] [place] [address], [place] [address] Apr, [facility] [address] [id number] [address] [place] [address] Apr, [facility] [address] [id number] [address] [place] [address], [place] [address] Apr, [facility] [address] [id number] [address] [place] [address], [place] [address] 15 Apr, 2013 [facility] [address] [id number] [address] [place] [address], [place] [address] 15 Apr, 2013 [facility] [address] [id number] [address] [place] [address], [place] [address] 01 Apr, 2013 [facility] [address] [id number] [address] [place] [address], [place] [address] 26 Mar, 2012 [facility] [address] [id number] [address] [place] [address], [place] [address] 24 Mar, 2012 [facility] [address] [id number] [address] [place] [address], [place] [address] 17 Mar, 2012 [facility] [address] [id number] [address] [place] [address], [place] [address] 17 Mar, 2012 [facility] [address] [id number] [address] [place] [address], [place] [address] 11 Mar, 2012 [facility] [address] [id number] [address] [place] [address], [place] [address] 10 Mar, 2012 [facility] [address] [id number] [address] [place] [address], [place] [address] 05 Mar, 2012 [facility] [address] [id number] [address] [place] [address], [place] [address] 04 Mar, 2013 [facility] [address] [id number] [address] [place] [address], [place] [address] 20 Jan, 2013 [facility] [address] [id number] [address] [place] [address], [place] [address] 19 Jan, 2013 [facility] [address] [id number] [address] [place] [address], [place] [address] 14 Jan, 2013 [facility] [address] [id number] [address] [place] [address], [place] [address] 12 Jan, 2013 [facility] [address] [id number] [address] [place] [address], [place] [address] 07 Jan, 2013 [facility] [address] [id number] [address] [place] [address], [place] [address] 05 Jan, 2013 [facility] [address] [id number] [address] [place] [address], [place] [address] 31 Dec, 2012 [facility] [address] [id number] [address] [place] [address], [place] [address] 24 Dec, 2012 [facility] [address] [id number] [address] [place] [address], [place] [address] Dec, [facility] [address] [id number] [address] [place] [address], [place] [address] Dec, [facility] [address] [id number] [address] [place] [address], [place] [address] 18 Dec, 2012 [facility] [address] [id number] [address] [place] [address], [place] [address] 17 Dec, 2012 [facility] [address] [id number] [address] [place] [address], [place] [address] 16 Dec, 2012 [facility] [address] [id number] [address] [place] [address], [place] [address] 16 Dec, 2012 [facility] [address] [id number] [address] [place] [address], [place] [address] 15 Dec, 2012 [facility] [address] [id number] [address] [place] [address], [place] [address] Dec, [facility] [address] [id number] [address] [place] [address], [place] [address] Dec, [facility] [address] [id number] [address] [place] [address], [place] [address] Dec, [facility] [address] [id number] [address] [place] [address], [place] [address] Dec, [facility] [address] [id number] [address] [place] [address], [place] [address] 17 Dec, 2012 [facility] [address] [id number] [address] [place] [address], [place] [address] Dec, [facility] [address] [id number] [address] [place] [address], [place] [address] Dec, [facility] [address] [id number] [address] [place] [address], [place] [address] October, [facility] [address] [id number] [address] [place] [address], [place] [address] October, [facility] [address] [id number] [address] [place] [address], [place] [address] October, [facility] [address] [id number] [address] [place] [address], [place] [address] October, [facility] [address] [id number] [address] [place] [address], [place] [address] October, [facility] [address] [id number] [address] [place] [address], [place] [address] October, [facility] [address] [id number] [address] [place] [address], [place] [address] October, [facility] [address] [id number] [address] [place] [address], [place] [address] Oct, [facility] [address] [id number] [address] [place] [address], [place] [address] Oct, [facility] [address] [id number] [address] [place] [address], [place] [address] Oct, [facility] [address] [id number] [address] [place] [address], [place] [address] Oct, [facility] [address] [id number] [address] [place] [address], [place] [address] Oct, [facility] [address] [id number] [address] [place] [address], [place] [address] 18 Oct, 2012 [facility] [address] [id number] [address] [place] [address], [place] [address] Oct, [facility] [address] [id number] [address] [place] [address], [place] [address] 15 Oct, 2012 [facility] [address] [id number] [address] [place] [address], [place] [address] Oct, [facility] [address] [id number] [address] [place] [address], [place] [address] Oct, [facility] [address] [id number] [address] [place] [address], [place] [address] Oct, [facility] [address] [id number] [address] [place] [address], [place] [address] Oct, [facility] [address] [id number] [address] [place] [address], [place] [address] Aug, [facility] [address] [id number] [address] [place] [address], [place] [address] Aug, [facility] [address] [id number] [address] [place] [address], [place] [address] Aug, [facility] [address] [id number] [address] [place] [address], [place] [address] Aug, [facility] [address] [id number] [address] [place] [address], [place] [address] 05 Aug, 2012 [facility] [address] [id number] [address] [place] [address], [place] [address] 05 Aug, 2012 [facility] [address] [id number] [address] [place] [address], [place] [address] 20 Aug, 2012 [facility] [address] [id number] [address] [place] [address], [place] [address] 14 Aug, 2012 [facility] [address] [id number] [address] [place] [address], [place] [address] Aug, [facility] [address] [id number] [address] [place] [address], [place] [address] Aug, [facility] [address] [id number] [address] [place] [address], [place] [address] Jul, [facility] [address] [id number] [address] [place] [address], [place] [address] 15 Jul, 2012 [facility] [address] [id number] [address] [place] [address], [place] [address] 08 Jul, 2012 [facility] [address] [id number] [address] [place] [address], [place] [address] 20 Jun, 2012 [facility] [address] [id number] [address] [place] [address], [place] [address] 18 Jun, 2012 [facility] [address] [id number] [address] [place] [address], [place] [address] 18 Jun, 2012 [facility] [address] [id number] [address] [place] [address], [place] [address] 18 Jun, 2012 [facility] [address] [id number] [address] [place] [address], [place] [address] 18 Jun, 2012 [facility] [address] [id number] [address] [place] [address], [place] [address] 14 Jun, 2012 [facility] [address] [id number] [address] [place] [address], [place] [address] 14 Jun, 2012 [facility] [address] [id number] [address] [place] [address], [place] [address] 13 Jun, 2012 [facility] [address] [id number] [address] [place] [address], [place] [address] 13 Jun, 2012 [facility] [address] [id number] [address] [place] [address], [place] [address] 11 Jun, 2012 [facility] [address] [id number] [address] [place] [address], [place] [address] 11 Jun, 2012 [facility] [address] [id number] [address] [place] [address], [place] [address] 11 Jun, 2012 [facility] [address] [id number] [address] [place] [address], [place] [address] 11 Jun, 2012 [facility] [address] [id number] [address] [place] [address], [place] [address] 07 Jun, 2012 [facility] [address] [id number] [address] [place] [address], [place] [address] Jun, [facility] [address] [id number] [address] [place] [address], [place] [address] Jun, [facility] [address] [id number] [address] [place] [address], [place] [address] Jun, [facility] [address] [id number] [address] [place] [address], [place] [address] Jun, [facility] [address] [id number] [address] [place] [address], [place] [address] Jun, [facility] [address] [id number] [address] [place] [address], [place] [address] Jun, [facility] [address] [id number] [address] [place] [address], [place] [address] Jun, [facility] [address] [id number] [address] [place] [address], [place] [address] Jun, [facility] [address] [id number] [address] [place] [address], [place] [address] Jun, [facility] [address] [id number] [address] [place] [address], [place] [address] May, [facility] [address] [id number] [address] [place] [address], [place] [address] May, [facility] [address] [id number] [address] [place] [address], [place] [address] May, [facility] [address] [id number] [address] [place] [address], [place] [address] May, [facility] [address] [id number] [address] [place] [address], [place] [address] May, [facility] [address] [id number] [address] [place] [address], [place] [address] May, [facility] [address] [id number] [address] [place] [address], [place] [address] May, [facility] [address] [id number] [address] [place] [address], [place] [address] May, [facility] [address] [id number] [address] [place] [address], [place] [address] Apr, [facility] [address] [id number] [address] [place] [address], [place] [address] Apr, [facility] [address] [id number] [address] [place] [address], [place] [address] Apr, [facility] [address] [id number] [address] [place] [address], [place] [address] Apr, [facility] [address] [id number] [address] [place] [address], [place] [address] Apr, [facility] [address] [id number] [address] [place] [address], [place] [address] Apr, [facility] [address] [id number] [address] [place] [address], [place] [address] Apr, [facility] [address] [id number] [address] [place] [address], [place] [address] Apr, [facility] [address] [id number] [address] [place] [address], [place] [address] Apr, [facility] [address] [id number] [address] [place] [address], [place] [address] Apr, [facility] [address] [id number] [address] [place] [address], [place] [address] Apr, [facility] [address] [id number] [address] [place] [address], [place] [address] Apr, [facility] [address] [id number] [address] [place] [address], [place] [address] Mar, [facility] [address] [id number] [address] [place] [address] 18 Mar, 2012 [facility] [address] [id number] [address] [place] [address], [place] [address] Mar, [facility] [address] [id number] [address] [place] [address] Mar, [facility] [address] [id number] [address] [place] [id number] Mar, [facility] [address] [id number] [address] [place] [id number] Mar, [facility] [address] [id number] [address] [place] [address], [place] [address] Mar, [facility] [address] [id number] [address] [place] [address] Jan, [facility] [address] [id number] [address] [place] [address] Jan, [facility] [address] [id number] [address] [place] [id number] Jan, [facility] [address] [id number] [address] [place] [id number] Jan, [facility] [address] [id number] [address] [place] [address] Jan, [facility] [address] [id number] [address] [place] [id number] Jan, [facility] [address] [id number] [address] [place] [phone] Jan, [facility] [address] [id number] [address] [place] [address], [place] [address] 14 Feb, 2012 [facility] [address] [id number] [address] [place] [address] Jan, [facility] [address] [id number] [address] [place] [phone] Jan, [facility] [address] [id number] [address] [place] [address], [place] [address] Jan, [facility] [address] [id number] [address] [place] [address], [place] [address] Dec, [facility] [address] [id number] [address] [place] [address], [place] [address] Dec, [facility] [address] [id number] [address] [place] [address], [place] [address] Dec, [facility] [address] [id number] [address] [place] [address], [place] [address] Dec, [facility] [address] [id number] [address] [place] [address], [place] [address] Dec, [facility] [address] [id number] [address] [place] [address], [place] [address] Dec, [facility] [address] [id number] [address] [place] [address], [place] [address] Dec, [facility] [address] [id number] [address] [place] [address], [place] [address] 17 Jan, 2012 [facility] [address] [id number] [address] [place] [address], [place] [address] 16 Jan, 2012 [facility] [address] [id number] [address] [place] [address], [place] [address] Dec, [facility] [address] [id number] [address] [place] [address], [place] [address] Dec, [facility] [address] [id number] [address] [place] [address], [place] [address] Dec, [facility] [address] [id number] [address] [place] [address], [place] [address] Dec, [facility] [address] [id number] [address] [place] [address], [place] [address] Dec, [facility] [address] [id number] [address] [place] [address], [place] [address] Dec, [facility] [address] [id number] [address] [place] [address], [place] [address] Dec, [facility] [address] [id number] [address] [place] [address], [place] [address] Dec, [facility] [address] [id number] [address] [place] [address], [place] [address] Dec, [facility] [address] [id number] [address] [place] [address], [place] [address] Dec, [facility] [address] [id number] [address] [place] [address], [place] [address] October, [facility] [address] [id number] [address] [place] [address], [place] [address] October, [facility] [address] [id number] [address] [place] [address], [place] [address] October, [facility] [address] [id number] [address] [place] [address], [place] [address] October, [facility] [address] [id number] [address] [place] [address], [place] [address] October, [facility] [address] [id number] [address] [place] [address], [place] [address] October, [facility] [address] [id number] [address] [place] [address], [place] [address] Oct, [facility] [address] [id number] [address] [place] [address], [place] [address] Oct, [facility] [address] [id number] [address] [place] [address], [place] [address] Oct, [facility] [address] [id number] [address] [place] [address], [place] [address] Oct, [facility] [address] [id number] [address] [place] [address], [place] [address] Oct, [facility] [address] [id number] [address] [place] [address], [place] [address] Oct, [facility] [address] [id number] [address] [place] [address], [place] [address] Oct, [facility] [address] [id number] [address] [place] [address], [place] [address] 29 Sep, 2011 [facility] [address] [id number] [address] [place] [address], [place] [address] 29 Sep, 2011 [facility] [address] [id number] [address] [place] [address], [place] [address] Aug, [facility] [address] [id number] [address] [place] [address], [place] [address] Aug, [facility] [address] [id number] [address] [place] [address], [place] [address] Aug, [facility] [address] [id number] [address] [place] [address], [place] [address] Aug, [facility] [address] [id number] [address] [place] [address], [place] [address] Aug, [facility] [address] [id number] [address] [place] [address], [place] [address] Aug, [facility] [address] [id number] [address] [place] [address], [place] [address] Aug, [facility] [address] [id number] [address] [place] [address], [place] [address] Jul, [facility] [address] [id number] [address] [place] [address], [place] [address] Jul, [facility] [address] [id number] [address] [place] [address], [place] [address] Jul, [facility] [address] [id number] [address] [place] [address], [place] [address] Jul, [facility] [address] [id number] [address] [place] [address], [place] [address] Jun, [facility] [address] [id number] [address] [place] [address], [place] [address] Jun, [facility] [address] [id number] [address] [place] [address], [place] [address] May, [facility] [address] [id number] [address] [place] [address], [place] [address] May, [facility] [address] [id number] [address] [place] [address], [place] [address] May, [facility] [address] [id number] [address] [place] [address], [place] [address] May, [facility] [address] [id number] [address] [place] [address], [place] [address] May, [facility] [address] [id number] [address] [place] [address], [place] [address] Apr, [facility] [address] [id number] [address] [place] [address], [place] [address] Apr, [facility] [address] [id number] [address] [place] [address], [place] [address] Apr, [facility] [address] [id number] [address] [place] [address], [place] [address] 15 Jan, 2011 [facility] [address] [id number] [address] [place] [address], [place] [address] Dec, [facility] [address] [id number] [address] [place] [address], [place] [address] October, [facility] [address] [id number] [address] [place] [address], [place] [address] Jun, [facility] [address] [id number] [address] [place] [address], [place] [address] 23 Apr, 2009 [facility] [address] [id number] [address] [place] [address], [place] [address] 13 Apr, 2009 [facility] [address] [id number] [address] [place] [address], [place] [address] Apr, [facility] [address] [facility] [id number] [address] [place] [address] Jun, IMMUNIZATIONS No Known Immunizations SOCIAL HISTORY [...]
--- OUTSIDE RECORDS SUMMARY | 2020-01-25 12:36 | XMS REPORT ---
Author Author Ana Iraheta Organization [facility] Address [address] [place] [address] Care Team Providers [facility] Analyst Name Role Phone MELISA Iraheta Unavailable PROBLEMS Type Condition ICD9-CM Code OJD20-DN Code Onset Dates Condition S tatus SNOMED Code Problem Attention deficit R41.840 Active 76 760779 Problem Chronic hepatitis C without hepatic coma B18.2 Active 456314276 Problem Cannabis abuse F12.10 Active 25849 009 Problem Bipolar disorder, in partial remission, most rec ent episode hypomanic F31.71 Active 967811441 Problem Attention deficit hyperactivity disorder (ADHD), combi luciano type F90.2 Active 56897949 Problem Bipolar 1 disorder F31.9 Active 3 66847122 Problem H/O laminectomy Z98.89 Active 1616 05463 Problem Other chronic pain G89.29 Active 8 8528131 Problem Anxiety disorder, unspecified type F41.9 Active [id number] ALLERGIES No Information ENCOUNTERS Encounter Location Date Diagnosis [facility] [address] [id number] [address] [place] [address] Mar, [facility] [address] [id number] [address] [place] [address] Dec, Other chronic pain G89.29 an d Low back pain M54.5 [facility] [address] [id number] [address] [place] [address] October, [facility] [address] [id number] [address] [place] [address] October, [facility] [address] [id number] [address] [place] [address] October, [facility] [address] [id number] [address] [place] [address] October, Other chronic pain G89.29 an d Chronic hepatitis C without hepatic coma B18.2 [facility] [address] [id number] [address] [place] [address] Aug, Bipolar disorder, in partial remission, most recent episode hypomanic F31.71 ; Attention deficit hyperactivity disorder (ADHD), combined type F90.2 and Anxiety disorder, unspecified type F41.9 [facility] [address] [id number] [address] [place] [address] Aug, [facility] [address] [id number] [address] [place] [address] Aug, Bipolar disorder, in partial remission, most recent episode hypomanic F31.71 [facility] [address] [id number] [address] [place] [address] Aug, [facility] [address] [id number] [address] [place] [address] Aug, Bipolar disorder, in partial remission, most recent episode hypomanic F31.71 [facility] [address] [id number] [address] [place] [address] Aug, Bipolar disorder, in partial remission, most recent episode hypomanic F31.71 ; Attention deficit hyperactivity disorder (ADHD), combined type F90.2 and Anxiety disorder, unspecified type F41.9 [facility] [address] [id number] [address] [place] [address] Aug, Low back pain M54.5 and Pain in left wrist M25.532 [facility] [address] [id number] [address] [place] [address] Aug, [facility] [address] [id number] [address] [place] [address] Jun, [facility] [address] [id number] [address] [place] [address] Apr, Bipolar disorder, in partial remission, most recent episode hypomanic F31.71 [facility] [address] [id number] [address] [place] [address] Apr, [facility] [address] [id number] [address] [place] [address] Apr, Bipolar disorder, in partial remission, most recent episode hypomanic F31.71 ; Attention deficit hyperactivity disorder (ADHD), combined type F90.2 ; Anxiety disorder, unspecified type F41.9 and 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 [facility] [address] [id number] [address] [place] [address] Apr, Bipolar disorder, in partial remission, most recent episode hypomanic F31.71 [facility] [address] [id number] [address] [place] [address] Apr, Bipolar disorder, in partial remission, most recent episode hypomanic F31.71 [facility] [address] [id number] [address] [place] [address] Mar, [facility] [id number] [id number] [address] [place] [address] Mar, Bipolar disorder, in partial remission, most recent episode hypomanic F31.71 ; Encounter for immunization Z23 and Low back pain M54.5 [facility] [address] [id number] [address] [place] [id number] 17 Mar, 2018 Bipolar disorder, in partial remission, most recent episode hypomanic F31.71 [facility] [address] [id number] [address] [place] [address] Mar, Bipolar disorder, in partial remission, most recent episode hypomanic F31.71 [facility] [address] [id number] [address] [place] [address] Jan, Bipolar disorder, in partial remission, most recent episode hypomanic F31.71 [facility] [address] [id number] [address] [place] [address] Jan, Bipolar disorder, in partial remission, most recent episode hypomanic F31.71 [facility] [address] [id number] [address] [place] [address] Dec, Bipolar disorder, in partial remission, most recent episode hypomanic F31.71 [facility] [address] [id number] [address] [place] [address] Dec, Bipolar disorder, in partial remission, most recent episode hypomanic F31.71 ; Attention deficit hyperactivity disorder (ADHD), combined type F90.2 ; Anxiety disorder, unspecified type F41.9 and 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 [facility] [address] [id number] [address] [place] [address] Dec, Bipolar disorder, in partial remission, most recent episode hypomanic F31.71 [facility] [address] [id number] [address] [place] [address] Dec, Bipolar disorder, in partial remission, most recent episode hypomanic F31.71 [facility] [address] [id number] [address] [place] [address] October, Bipolar disorder, in partial remission, most recent episode hypomanic F31.71 [facility] [address] [id number] [address] [place] [address] October, [facility] [address] [id number] [address] [place] [address] October, [facility] [address] [id number] [address] [place] [address] Oct, Bipolar disorder, in partial remission, most recent episode hypomanic F31.71 ; Attention deficit hyperactivity disorder (ADHD), combined type F90.2 ; Anxiety disorder, unspecified type F41.9 and Encounter for drug screening Z02.83 [facility] [address] [id number] [address] [place] [address] Oct, Bipolar disorder, in partial remission, most recent episode hypomanic F31.71 [facility] [address] [id number] [address] [place] [address] Oct, Bipolar disorder, in partial remission, most recent episode hypomanic F31.71 [facility] [address] [id number] [address] [place] [address] Aug, Bipolar disorder, in partial remission, most recent episode hypomanic F31.71 [facility] [address] [id number] [address] [place] [address] Aug, Bipolar disorder, in partial remission, most recent episode hypomanic F31.71 [facility] [address] [id number] [address] [place] [address] Aug, Bipolar disorder, in partial remission, most recent episode hypomanic F31.71 [facility] [address] [id number] [address] [place] [address] Jul, Bipolar disorder, in partial remission, most recent episode hypomanic F31.71 ; Attention deficit hyperactivity disorder (ADHD), combined type F90.2 and Anxiety disorder, unspecified type F41.9 [facility] [address] [id number] [address] [place] [address] Jul, Bipolar disorder, in partial remission, most recent episode hypomanic F31.71 [facility] [address] [id number] [address] [place] [address] Jun, Bipolar disorder, in partial remission, most recent episode hypomanic F31.71 [facility] [address] [id number] [address] [place] [id number] May, Bipolar disorder, in partial remission, most recent episode hypomanic F31.71 [facility] [address] [id number] [address] [place] [address] May, Bipolar disorder, in partial remission, most recent episode hypomanic F31.71 [facility] [address] [id number] [address] [place] [address] Apr, [facility] [address] [id number] [address] [place] [address] Apr, Bipolar disorder, in partial remission, most recent episode hypomanic F31.71 ; Attention deficit hyperactivity disorder (ADHD), combined type F90.2 ; Anxiety disorder, unspecified type F41.9 and Cannabis abuse F12.10 [facility] [address] [id number] [address] [place] [address] Apr, Attention deficit hyperactiv ity disorder (ADHD), combined type F90.2 [facility] [address] [id number] [address] [place] [address] Mar, Attention deficit hyperactiv ity disorder (ADHD), combined type F90.2 [facility] [address] [id number] [address] [place] [address] Mar, Anxiety disorder, unspecifie d type F41.9 [facility] [address] [id number] [address] [place] [address] Jan, Attention deficit hyperactiv ity disorder (ADHD), combined type F90.2 [facility] [address] [id number] [address] [place] [address] Jan, Anxiety disorder, unspecifie d type F41.9 [facility] [address] [id number] [address] [place] [address] Jan, Other chronic pain G89.29 ; Chronic hepatitis C without hepatic coma B18.2 and Bipolar 1 disorder F31.9 [facility] [address] [id number] [address] [place] [address] Dec, Attention deficit hyperactiv ity disorder (ADHD), combined type F90.2 [facility] [address] [id number] [address] [place] [address] Dec, Bipolar disorder, in partial remission, most recent episode hypomanic F31.71 ; Attention deficit hyperactivity disorder (ADHD), combined type F90.2 and Anxiety disorder, unspecified type F41.9 [facility] [address] [id number] [address] [place] [id number] 28 [place], 2017 Bipolar disorder, in partial remission, most recent episode hypomanic F31.71 ; Attention deficit hyperactivity disorder (ADHD), combined type F90.2 and Anxiety disorder, unspecified type F41.9 [facility] [address] [id number] [address] [place] [phone] Dec, Bipolar 1 disorder F31.9 and Attention deficit R41.840 [facility] [address] [id number] [address] [place] [address] Oct, Other chronic pain G89.29 ; Alopecia L65.9 and Screening, lipid Z13.220 [facility] [address] [id number] [address] [place] [address] Oct, [facility] [address] [id number] [address] [place] [address] Aug, [facility] [address] [id number] [address] [place] [address] Aug, Eustachian tube dysfunction, right H69.81 ; Vertigo R42 and Other chronic pain G89.29 [facility] [address] [id number] [address] [place] [phone] Aug, [facility] [address] [id number] [address] [place] [address] Jun, [facility] [address] [id number] [address] [place] [address] Jun, Low back pain M54.5 and Othe r chronic pain G89.29 [facility] [address] [id number] [address] [place] [address] Jun, [facility] [address] [id number] [address] [place] [address] May, [facility] [address] [id number] [address] [place] [phone] Jan, [facility] [address] [id number] [address] [place] [address] Dec, [facility] [address] [id number] [address] [place] [address] Dec, [facility] [address] [id number] [address] [place] [address] Jun, [facility] [address] [id number] [address] [place] [address] Apr, Eustachian tube dysfunction, unspecified laterality H69.80 ; Hot flashes N95.1 and Encounter for immunization Z23 [facility] [address] [id number] [address] [place] [address] Jan, [facility] [address] [id number] [address] [place] [id number] Jan, [facility] [address] [id number] [address] [place] [phone] Jan, [facility] [address] [id number] [address] [place] [address] Jan, [facility] [address] [id number] [address] [place] [address] Jan, Encounter to establish care V65.8 ; Bipolar 1 disorder 296.7 ; Abdominal pain 789.00 ; Constipation 564.00 ; Hard of hearing 389.9 and Drug abuse 305.90 [facility] [address] [id number] [address] [place] [address] Dec, [facility] [address] [id number] [address] [place] [address] October, [facility] [address] [id number] [address] [place] [address] October, [facility] [address] [id number] [address] [place] [id number] Oct, [facility] [address] [id number] [address] [place] [address] Oct, [facility] [address] [id number] [address] [place] [address], [place] [address] Oct, [facility] [address] [id number] [address] [place] [address], [place] [address] Aug, [facility] [address] [id number] [address] [place] [address], [place] [address] Aug, [facility] [address] [id number] [address] [place] [address], [place] [address] Aug, [facility] [address] [id number] [address] [place] [address], [place] [address] Aug, 2014 [facility] [address] [id number] [address] [place] [address], [place] [address] Aug, 2014 [facility] [address] [id number] [address] [place] [address], [place] [address] Aug, 2014 [facility] [address] [id number] [address] [place] [address], [place] [address] Aug, 2014 [facility] [address] [id number] [address] [place] [address], [place] [address] Aug, 2014 [facility] [address] [id number] [address] [place] [address], [place] [address] Aug, 2014 [facility] [address] [id number] [address] [place] [address], [place] [address] Aug, 2014 [facility] [address] [id number] [address] [place] [address], [place] [address] Aug, 2014 [facility] [address] [id number] [address] [place] [address], [place] [address] Aug, 2014 [facility] [address] [id number] [address] [place] [address], [place] [address] Aug, 2014 [facility] [address] [id number] [address] [place] [id number] Aug, 2014 [facility] [address] [id number] [address] [place] [id number] Aug, [facility] [address] [id number] [address] [place] [address], [place] [address] Jul, [facility] [address] [id number] [address] [place] [address], [place] [address] Jul, [facility] [address] [id number] [address] [place] [address], [place] [address] Jul, [facility] [address] [id number] [address] [place] [address], [place] [address] Jul, [facility] [address] [id number] [address] [place] [address], [place] [address] Jul, [facility] [address] [id number] [address] [place] [address], [place] [address] Jul, [facility] [address] [id number] [address] [place] [address], [place] [address] Jul, [facility] [address] [id number] [address] [place] [address], [place] [address] Jul, [facility] [address] [id number] [address] [place] [address], [place] [address] Jun, [facility] [address] [id number] [address] [place] [address], [place] [address] Jun, [facility] [address] [id number] [address] [place] [address], [place] [address] Jun, [facility] [address] [id number] [address] [place] [address], [place] [address] 29 Jun, 2014 [facility] [address] [id number] [address] [place] [address], [place] [address] 18 Jun, 2014 [facility] [address] [id number] [address] [place] [address], [place] [address] Jun, [facility] [address] [id number] [address] [place] [address], [place] [address] Jun, [facility] [address] [id number] [address] [place] [address], [place] [address] Jun, [facility] [address] [id number] [address] [place] [address], [place] [address] Jun, [facility] [address] [id number] [address] [place] [address], [place] [address] Jun, [facility] [address] [id number] [address] [place] [address], [place] [address] Jun, [facility] [address] [id number] [address] [place] [address], [place] [address] May, [facility] [address] [id number] [address] [place] [address], [place] [address] May, [facility] [address] [id number] [address] [place] [address], [place] [address] May, [facility] [address] [id number] [address] [place] [address], [place] [address] May, [facility] [address] [id number] [address] [place] [address], [place] [address] May, [facility] [address] [id number] [address] [place] [address], [place] [address] May, [facility] [address] [id number] [address] [place] [address], [place] [address] May, [facility] [address] [id number] [address] [place] [address], [place] [address] Apr, [facility] [address] [id number] [address] [place] [address], [place] [address] Apr, [facility] [address] [id number] [address] [place] [address], [place] [address] Apr, [facility] [address] [id number] [address] [place] [address], [place] [address] Apr, [facility] [address] [id number] [address] [place] [address], [place] [address] Apr, [facility] [address] [id number] [address] [place] [address], [place] [address] Apr, [facility] [address] [id number] [address] [place] [address], [place] [address] Mar, [facility] [address] [id number] [address] [place] [address], [place] [address] Mar, [facility] [address] [id number] [address] [place] [address], [place] [address] Mar, [facility] [address] [id number] [address] [place] [address], [place] [address] Mar, [facility] [address] [id number] [address] [place] [address], [place] [address] Mar, [facility] [address] [id number] [address] [place] [address], [place] [address] Mar, [facility] [address] [id number] [address] [place] [address], [place] [address] Jan, [facility] [address] [id number] [address] [place] [address], [place] [address] Jan, [facility] [address] [id number] [address] [place] [address], [place] [address] Jan, [facility] [address] [id number] [address] [place] [address], [place] [address] Jan, [facility] [address] [id number] [address] [place] [address], [place] [address] Dec, [facility] [address] [id number] [address] [place] [address], [place] [address] Dec, [facility] [address] [id number] [address] [place] [address], [place] [address] Dec, [facility] [address] [id number] [address] [place] [address], [place] [address] Dec, [facility] [address] [id number] [address] [place] [address], [place] [address] Dec, [facility] [address] [id number] [address] [place] [address], [place] [address] Dec, [facility] [address] [id number] [address] [place] [address], [place] [address] Dec, [facility] [address] [id number] [address] [place] [address], [place] [address] Dec, [facility] [address] [id number] [address] [place] [address], [place] [address] Dec, [facility] [address] [id number] [address] [place] [address], [place] [address] Dec, [facility] [address] [id number] [address] [place] [address], [place] [address] Dec, [facility] [address] [id number] [address] [place] [address], [place] [address] Dec, [facility] [address] [id number] [address] [place] [address], [place] [address] October, [facility] [address] [id number] [address] [place] [address], [place] [address] October, [facility] [address] [id number] [address] [place] [address], [place] [address] October, [facility] [address] [id number] [address] [place] [address], [place] [address] October, [facility] [address] [id number] [address] [place] [address], [place] [address] October, [facility] [address] [id number] [address] [place] [address], [place] [address] October, [facility] [address] [id number] [address] [place] [address], [place] [address] Oct, [facility] [address] [id number] [address] [place] [address], [place] [address] Oct, [facility] [address] [id number] [facility] [place] [address] Oct, [facility] [address] [id number] [facility] [place] [address] Oct, [facility] [address] [id number] [facility] [place] [address] Oct, [facility] [address] [id number] [address] [place] [address], [place] [address] Oct, [facility] [address] [id number] [facility] [place] [address] Oct, [facility] [address] [id number] [address] [place] [address], [place] [address] Oct, [facility] [address] [id number] [address] [place] [address], [place] [address] Oct, [facility] [address] [id number] [address] [place] [address], [place] [address] Oct, [facility] [address] [id number] [address] [place] [address], [place] [address] Oct, [facility] [address] [id number] [address] [place] [address], [place] [address] Oct, [facility] [address] [id number] [address] [place] [address], [place] [address] Aug, [facility] [address] [id number] [address] [place] [address], [place] [address] Aug, [facility] [address] [id number] [address] [place] [address], [place] [address] Aug, [facility] [address] [id number] [address] [place] [address], [place] [address] Aug, [facility] [address] [id number] [address] [place] [address], [place] [address] Aug, [facility] [address] [id number] [address] [place] [address], [place] [address] Aug, [facility] [address] [id number] [facility] [place] [address] 04 Aug, 2013 [facility] [address] [id number] [address] [place] [address], [place] [address] Aug, [facility] [address] [id number] [address] [place] [address], [place] [address] Aug, [facility] [address] [id number] [address] [place] [address], [place] [address] 24 Aug, 2013 [facility] [address] [id number] [address] [place] [address], [place] [address] 24 Aug, 2013 [facility] [address] [id number] [address] [place] [address], [place] [address] Aug, [facility] [address] [id number] [address] [place] [address], [place] [address] Aug, [facility] [address] [id number] [address] [place] [address], [place] [address] 20 Aug, 2013 [facility] [address] [id number] [address] [place] [address], [place] [address] 14 Aug, 2013 [facility] [address] [id number] [address] [place] [address], [place] [address] 14 Aug, 2013 [facility] [address] [id number] [address] [place] [address], [place] [address] 14 Aug, 2013 [facility] [address] [id number] [address] [place] [address], [place] [address] 14 Aug, 2013 [facility] [address] [id number] [address] [place] [address], [place] [address] 07 Aug, 2013 [facility] [address] [id number] [address] [place] [address], [place] [address] 07 Aug, 2013 [facility] [address] [id number] [address] [place] [address], [place] [address] 06 Aug, 2013 [facility] [address] [id number] [address] [place] [address], [place] [address] Aug, [facility] [address] [id number] [address] [place] [address], [place] [address] Aug, [facility] [address] [id number] [address] [place] [address], [place] [address] Aug, [facility] [address] [id number] [address] [place] [address], [place] [address] Aug, [facility] [address] [id number] [address] [place] [address], [place] [address] Jul, [facility] [address] [id number] [address] [place] [address], [place] [address] Jul, [facility] [address] [id number] [address] [place] [address], [place] [address] Jul, [facility] [address] [id number] [address] [place] [address], [place] [address] Jul, [facility] [address] [id number] [address] [place] [address], [place] [address] Jul, [facility] [address] [id number] [address] [place] [address], [place] [address] Jul, [facility] [address] [id number] [address] [place] [address], [place] [address] Jul, [facility] [address] [id number] [address] [place] [address], [place] [address] Jul, [facility] [address] [id number] [address] [place] [address], [place] [address] Jul, [facility] [address] [id number] [address] [place] [address], [place] [address] Jul, [facility] [address] [id number] [address] [place] [address], [place] [address] Jul, [facility] [address] [id number] [address] [place] [address], [place] [address] Jul, [facility] [address] [id number] [address] [place] [address], [place] [address] Jul, [facility] [address] [id number] [address] [place] [address], [place] [address] Jul, [facility] [address] [id number] [address] [place] [address], [place] [address] Jul, [facility] [address] [id number] [address] [place] [address], [place] [address] Jul, [facility] [address] [id number] [address] [place] [address], [place] [address] Jul, [facility] [address] [id number] [address] [place] [address], [place] [address] Jul, [facility] [address] [id number] [address] [place] [address], [place] [address] Jul, [facility] [address] [id number] [address] [place] [address], [place] [address] Jul, [facility] [address] [id number] [address] [place] [address], [place] [address] Jun, [facility] [address] [id number] [address] [place] [address], [place] [address] Jun, [facility] [address] [id number] [address] [place] [address], [place] [address] 30 Jun, 2013 [facility] [address] [id number] [address] [place] [address], [place] [address] 30 Jun, 2013 [facility] [address] [id number] [address] [place] [address], [place] [address] Jun, [facility] [address] [id number] [address] [place] [address], [place] [address] Jun, [facility] [address] [id number] [address] [place] [address], [place] [address] Jun, [facility] [address] [id number] [address] [place] [address], [place] [address] Jun, [facility] [address] [id number] [address] [place] [address], [place] [address] Jun, [facility] [address] [id number] [address] [place] [address], [place] [address] Jun, [facility] [address] [id number] [address] [place] [address], [place] [address] Jun, [facility] [address] [id number] [address] [place] [address], [place] [address] Jun, [facility] [address] [id number] [address] [place] [address], [place] [address] Jun, [facility] [address] [id number] [address] [place] [address], [place] [address] Jun, [facility] [address] [id number] [address] [place] [address], [place] [address] Jun, [facility] [address] [id number] [address] [place] [address], [place] [address] Jun, [facility] [address] [id number] [address] [place] [address], [place] [address] Jun, [facility] [address] [id number] [address] [place] [address], [place] [address] 17 Jun, 2013 [facility] [address] [id number] [address] [place] [address], [place] [address] 17 Jun, 2013 [facility] [address] [id number] [address] [place] [address], [place] [address] 13 Jun, 2013 [facility] [address] [id number] [address] [place] [address], [place] [address] Jun, [facility] [address] [id number] [address] [place] [address], [place] [address] Jun, [facility] [address] [id number] [address] [place] [address], [place] [address] Jun, [facility] [address] [id number] [address] [place] [address], [place] [address] Jun, [facility] [address] [id number] [address] [place] [address], [place] [address] Jun, [facility] [address] [id number] [address] [place] [address], [place] [address] Jun, [facility] [address] [id number] [address] [place] [address], [place] [address] Jun, [facility] [address] [id number] [address] [place] [address], [place] [address] May, [facility] [address] [id number] [address] [place] [address], [place] [address] May, [facility] [address] [id number] [address] [place] [address], [place] [address] May, [facility] [address] [id number] [address] [place] [address] May, [facility] [address] [id number] [address] [place] [address], [place] [address] May, [facility] [address] [id number] [address] [place] [address] May, [facility] [address] [id number] [address] [place] [address] Apr, [facility] [address] [id number] [address] [place] [address] Apr, [facility] [address] [id number] [address] [place] [address], [place] [address] Apr, [facility] [address] [id number] [address] [place] [address] Apr, [facility] [address] [id number] [address] [place] [address], [place] [address] Apr, [facility] [address] [id number] [address] [place] [address], [place] [address] 15 Apr, 2013 [facility] [address] [id number] [address] [place] [address], [place] [address] 15 Apr, 2013 [facility] [address] [id number] [address] [place] [address], [place] [address] 01 Apr, 2013 [facility] [address] [id number] [address] [place] [address], [place] [address] 26 Mar, 2012 [facility] [address] [id number] [address] [place] [address], [place] [address] 24 Mar, 2012 [facility] [address] [id number] [address] [place] [address], [place] [address] 17 Mar, 2012 [facility] [address] [id number] [address] [place] [address], [place] [address] 17 Mar, 2012 [facility] [address] [id number] [address] [place] [address], [place] [address] 11 Mar, 2012 [facility] [address] [id number] [address] [place] [address], [place] [address] 10 Mar, 2012 [facility] [address] [id number] [address] [place] [address], [place] [address] 05 Mar, 2012 [facility] [address] [id number] [address] [place] [address], [place] [address] 04 Mar, 2013 [facility] [address] [id number] [address] [place] [address], [place] [address] 20 Jan, 2013 [facility] [address] [id number] [address] [place] [address], [place] [address] 19 Jan, 2013 [facility] [address] [id number] [address] [place] [address], [place] [address] 14 Jan, 2013 [facility] [address] [id number] [address] [place] [address], [place] [address] 12 Jan, 2013 [facility] [address] [id number] [address] [place] [address], [place] [address] 07 Jan, 2013 [facility] [address] [id number] [address] [place] [address], [place] [address] 05 Jan, 2013 [facility] [address] [id number] [address] [place] [address], [place] [address] 31 Dec, 2012 [facility] [address] [id number] [address] [place] [address], [place] [address] 24 Dec, 2012 [facility] [address] [id number] [address] [place] [address], [place] [address] Dec, [facility] [address] [id number] [address] [place] [address], [place] [address] Dec, [facility] [address] [id number] [address] [place] [address], [place] [address] 18 Dec, 2012 [facility] [address] [id number] [address] [place] [address], [place] [address] 17 Dec, 2012 [facility] [address] [id number] [address] [place] [address], [place] [address] 16 Dec, 2012 [facility] [address] [id number] [address] [place] [address], [place] [address] 16 Dec, 2012 [facility] [address] [id number] [address] [place] [address], [place] [address] 15 Dec, 2012 [facility] [address] [id number] [address] [place] [address], [place] [address] Dec, [facility] [address] [id number] [address] [place] [address], [place] [address] Dec, [facility] [address] [id number] [address] [place] [address], [place] [address] Dec, [facility] [address] [id number] [address] [place] [address], [place] [address] Dec, [facility] [address] [id number] [address] [place] [address], [place] [address] 17 Dec, 2012 [facility] [address] [id number] [address] [place] [address], [place] [address] Dec, [facility] [address] [id number] [address] [place] [address], [place] [address] Dec, [facility] [address] [id number] [address] [place] [address], [place] [address] October, [facility] [address] [id number] [address] [place] [address], [place] [address] October, [facility] [address] [id number] [address] [place] [address], [place] [address] October, [facility] [address] [id number] [address] [place] [address], [place] [address] October, [facility] [address] [id number] [address] [place] [address], [place] [address] October, [facility] [address] [id number] [address] [place] [address], [place] [address] October, [facility] [address] [id number] [address] [place] [address], [place] [address] October, [facility] [address] [id number] [address] [place] [address], [place] [address] Oct, [facility] [address] [id number] [address] [place] [address], [place] [address] Oct, [facility] [address] [id number] [address] [place] [address], [place] [address] Oct, [facility] [address] [id number] [address] [place] [address], [place] [address] Oct, [facility] [address] [id number] [address] [place] [address], [place] [address] Oct, [facility] [address] [id number] [address] [place] [address], [place] [address] 18 Oct, 2012 [facility] [address] [id number] [address] [place] [address], [place] [address] Oct, [facility] [address] [id number] [address] [place] [address], [place] [address] 15 Oct, 2012 [facility] [address] [id number] [address] [place] [address], [place] [address] Oct, [facility] [address] [id number] [address] [place] [address], [place] [address] Oct, [facility] [address] [id number] [address] [place] [address], [place] [address] Oct, [facility] [address] [id number] [address] [place] [address], [place] [address] Oct, [facility] [address] [id number] [address] [place] [address], [place] [address] Aug, [facility] [address] [id number] [address] [place] [address], [place] [address] Aug, [facility] [address] [id number] [address] [place] [address], [place] [address] Aug, [facility] [address] [id number] [address] [place] [address], [place] [address] Aug, [facility] [address] [id number] [address] [place] [address], [place] [address] 05 Aug, 2012 [facility] [address] [id number] [address] [place] [address], [place] [address] 05 Aug, 2012 [facility] [address] [id number] [address] [place] [address], [place] [address] 20 Aug, 2012 [facility] [address] [id number] [address] [place] [address], [place] [address] 14 Aug, 2012 [facility] [address] [id number] [address] [place] [address], [place] [address] Aug, [facility] [address] [id number] [address] [place] [address], [place] [address] Aug, [facility] [address] [id number] [address] [place] [address], [place] [address] Jul, [facility] [address] [id number] [address] [place] [address], [place] [address] 15 Jul, 2012 [facility] [address] [id number] [address] [place] [address], [place] [address] 08 Jul, 2012 [facility] [address] [id number] [address] [place] [address], [place] [address] 20 Jun, 2012 [facility] [address] [id number] [address] [place] [address], [place] [address] 18 Jun, 2012 [facility] [address] [id number] [address] [place] [address], [place] [address] 18 Jun, 2012 [facility] [address] [id number] [address] [place] [address], [place] [address] 18 Jun, 2012 [facility] [address] [id number] [address] [place] [address], [place] [address] 18 Jun, 2012 [facility] [address] [id number] [address] [place] [address], [place] [address] 14 Jun, 2012 [facility] [address] [id number] [address] [place] [address], [place] [address] 14 Jun, 2012 [facility] [address] [id number] [address] [place] [address], [place] [address] 13 Jun, 2012 [facility] [address] [id number] [address] [place] [address], [place] [address] 13 Jun, 2012 [facility] [address] [id number] [address] [place] [address], [place] [address] 11 Jun, 2012 [facility] [address] [id number] [address] [place] [address], [place] [address] 11 Jun, 2012 [facility] [address] [id number] [address] [place] [address], [place] [address] 11 Jun, 2012 [facility] [address] [id number] [address] [place] [address], [place] [address] 11 Jun, 2012 [facility] [address] [id number] [address] [place] [address], [place] [address] 07 Jun, 2012 [facility] [address] [id number] [address] [place] [address], [place] [address] Jun, [facility] [address] [id number] [address] [place] [address], [place] [address] Jun, [facility] [address] [id number] [address] [place] [address], [place] [address] Jun, [facility] [address] [id number] [address] [place] [address], [place] [address] Jun, [facility] [address] [id number] [address] [place] [address], [place] [address] Jun, [facility] [address] [id number] [address] [place] [address], [place] [address] Jun, [facility] [address] [id number] [address] [place] [address], [place] [address] Jun, [facility] [address] [id number] [address] [place] [address], [place] [address] Jun, [facility] [address] [id number] [address] [place] [address], [place] [address] Jun, [facility] [address] [id number] [address] [place] [address], [place] [address] May, [facility] [address] [id number] [address] [place] [address], [place] [address] May, [facility] [address] [id number] [address] [place] [address], [place] [address] May, [facility] [address] [id number] [address] [place] [address], [place] [address] May, [facility] [address] [id number] [address] [place] [address], [place] [address] May, [facility] [address] [id number] [address] [place] [address], [place] [address] May, [facility] [address] [id number] [address] [place] [address], [place] [address] May, [facility] [address] [id number] [address] [place] [address], [place] [address] May, [facility] [address] [id number] [address] [place] [address], [place] [address] Apr, [facility] [address] [id number] [address] [place] [address], [place] [address] Apr, [facility] [address] [id number] [address] [place] [address], [place] [address] Apr, [facility] [address] [id number] [address] [place] [address], [place] [address] Apr, [facility] [address] [id number] [address] [place] [address], [place] [address] Apr, [facility] [address] [id number] [address] [place] [address], [place] [address] Apr, [facility] [address] [id number] [address] [place] [address], [place] [address] Apr, [facility] [address] [id number] [address] [place] [address], [place] [address] Apr, [facility] [address] [id number] [address] [place] [address], [place] [address] Apr, [facility] [address] [id number] [address] [place] [address], [place] [address] Apr, [facility] [address] [id number] [address] [place], [place] [address], [place] [address] Apr, [facility] [address] [id number] [address] [place] [address], [place] [address] Apr, [facility] [address] [id number] [address] [place] [address], [place] [address] Mar, [facility] [address] [id number] [address] [place] [id number] 18 Mar, 2012 [facility] [address] [id number] [address] [place] [address], [place] [address] Mar, [facility] [address] [id number] [address] [place] [id number] Mar, [facility] [address] [id number] [address] [place] [id number] Mar, [facility] [address] [id number] [address] [place] [id number] Mar, [facility] [address] [id number] [address] [place] [address], [place] [address] Mar, [facility] [address] [id number] [address] [place] [id number] Jan, [facility] [address] [id number] [address] [place] [id number] Jan, [facility] [address] [id number] [address] [place] [id number] Jan, [facility] [address] [id number] [address] [place] [id number] Jan, [facility] [address] [id number] [address] [place] [id number] Jan, [facility] [address] [id number] [address] [place] [id number] Jan, [facility] [address] [id number] [address] [place] [id number] Jan, [facility] [address] [id number] [address] [place] [address], [place] [address] 14 Feb, 2012 [facility] [address] [id number] [address] [place] [id number] Jan, [facility] [address] [id number] [address] [place] [phone] Jan, [facility] [address] [id number] [address] [place] [address], [place] [address] Jan, [facility] [address] [id number] [address] [place] [address], [place] [address] Dec, [facility] [address] [id number] [address] [place] [address], [place] [address] Dec, [facility] [address] [id number] [address] [place] [address], [place] [address] Dec, [facility] [address] [id number] [address] [place] [address], [place] [address] Dec, [facility] [address] [id number] [address] [place] [address], [place] [address] Dec, [facility] [address] [id number] [address] [place] [address], [place] [address] Dec, [facility] [address] [id number] [address] [place] [address], [place] [address] Dec, [facility] [address] [id number] [address] [place] [address], [place] [address] 17 Jan, 2012 [facility] [address] [id number] [address] [place] [address], [place] [address] 16 Jan, 2012 [facility] [address] [id number] [address] [place] [address], [place] [address] Dec, [facility] [address] [id number] [address] [place] [address], [place] [address] Dec, [facility] [address] [id number] [address] [place] [address], [place] [address] Dec, [facility] [address] [id number] [address] [place] [address], [place] [address] Dec, [facility] [address] [id number] [address] [place] [address], [place] [address] Dec, [facility] [address] [id number] [address] [place] [address], [place] [address] Dec, [facility] [address] [id number] [address] [place] [address], [place] [address] Dec, [facility] [address] [id number] [address] [place] [address], [place] [address] Dec, [facility] [address] [id number] [address] [place] [address], [place] [address] Dec, [facility] [address] [id number] [address] [place] [address], [place] [address] Dec, [facility] [address] [id number] [address] [place] [address], [place] [address] October, [facility] [address] [id number] [address] [place] [address], [place] [address] October, [facility] [address] [id number] [address] [place] [address], [place] [address] October, [facility] [address] [id number] [address] [place] [address], [place] [address] October, [facility] [address] [id number] [address] [place] [address], [place] [address] October, [facility] [address] [id number] [address] [place] [address], [place] [address] October, [facility] [address] [id number] [address] [place] [address], [place] [address] Oct, [facility] [address] [id number] [address] [place] [address], [place] [address] Oct, [facility] [address] [id number] [address] [place] [address], [place] [address] Oct, [facility] [address] [id number] [address] [place] [address], [place] [address] Oct, [facility] [address] [id number] [address] [place] [address], [place] [address] Oct, [facility] [address] [id number] [address] [place] [address], [place] [address] Oct, [facility] [address] [id number] [address] [place] [address], [place] [address] Oct, [facility] [address] [id number] [address] [place] [address], [place] [address] 29 Sep, 2011 [facility] [address] [id number] [address] [place] [address], [place] [address] 29 Sep, 2011 [facility] [address] [id number] [address] [place] [address], [place] [address] Aug, [facility] [address] [id number] [address] [place] [address], [place] [address] Aug, [facility] [address] [id number] [address] [place] [address], [place] [address] Aug, [facility] [address] [id number] [address] [place] [address], [place] [address] Aug, [facility] [address] [id number] [address] [place] [address], [place] [address] Aug, [facility] [address] [id number] [address] [place] [address], [place] [address] Aug, [facility] [address] [id number] [address] [place] [address], [place] [address] Aug, [facility] [address] [id number] [address] [place] [address], [place] [address] Jul, [facility] [address] [id number] [address] [place] [address], [place] [address] Jul, [facility] [address] [id number] [address] [place] [address], [place] [address] Jul, [facility] [address] [id number] [address] [place] [address], [place] [address] Jul, [facility] [address] [id number] [address] [place] [address], [place] [address] Jun, [facility] [address] [id number] [address] [place] [address], [place] [address] Jun, [facility] [address] [id number] [address] [place] [address], [place] [address] May, [facility] [address] [id number] [address] [place] [address], [place] [address] May, [facility] [address] [id number] [address] [place] [address], [place] [address] May, [facility] [address] [id number] [address] [place] [address], [place] [address] May, [facility] [address] [id number] [address] [place] [address], [place] [address] May, [facility] [address] [id number] [address] [place] [address], [place] [address] Apr, [facility] [address] [id number] [address] [place] [address], [place] [address] Apr, [facility] [address] [id number] [address] [place] [address], [place] [address] Apr, [facility] [address] [id number] [address] [place] [address], [place] [address] 15 Jan, 2011 [facility] [address] [id number] [address] [place] [address], [place] [address] Dec, [facility] [address] [id number] [address] [place] [address], [place] [address] October, [facility] [address] [id number] [address] [place] [address], [place] [address] Jun, [facility] [address] [id number] [address] [place] [address], [place] [address] 23 Apr, 2009 [facility] [address] [id number] [address] [place] [address], [place] [address] 13 Apr, 2009 [facility] [address] [id number] [address] [place] [address], [place] [address] Apr, [facility] [address] [id number] [address] [place] [address] Jun, IMMUNIZATIONS No Known Immunizations SOCIAL HISTORY Never Assessed REASON FOR VISIT PLAN OF CARE VITAL SIGNS Height 69 in 2014-03-31 Weight 195.25 lbs 2014-03-31 Temperature 98 degrees Fahrenheit 2014-03-31 Heart Rate 88 bpm 2014-03-31 Respiratory Rate 32 2014-03-31 Blood pressure systolic 138 mmHg 2014-03-31 Blood pressure diastolic 96 mmHg 2014-03-31 MEDICATIONS Unknown Medications RESULTS No Results PROCEDURES [...]
--- OUTSIDE RECORDS SUMMARY | 2020-01-25 12:37 | XMS REPORT ---
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 Name Role Phone MELISA Iraheta Unavailable PROBLEMS Type Condition ICD9-CM Code [id number] Code Onset Dates Condition S tatus SNOMED Code Problem Attention deficit R41.840 Active 76 449340 Problem Chronic hepatitis C without hepatic coma B18.2 Active 886996051 Problem Cannabis abuse F12.10 Active 96363 009 Problem Bipolar disorder, in partial remission, most rec ent episode hypomanic F31.71 Active 005253347 Problem Attention deficit hyperactivity disorder (ADHD), combi luciano type F90.2 Active 13657551 Problem Bipolar 1 disorder F31.9 Active 3 60307009 Problem H/O laminectomy Z98.89 Active 1616 72032 Problem Other chronic pain G89.29 Active 8 4817959 Problem Anxiety disorder, unspecified type F41.9 Active 916990272 ALLERGIES No Information ENCOUNTERS Encounter Location Date Diagnosis [facility] [address] [facility] [id number] [address] [place] [id number] Mar, [facility] [address] [facility] [id number] [address] [place] [address] Dec, Other chronic pain G89.29 an d Low back pain M54.5 [facility] [address] [facility] [id number] [address] [place] [address] October, [facility] [address] [facility] [id number] [address] [place] [address] October, [facility] [address] [facility] [id number] [address] [place] [address] October, [facility] [address] [facility] [id number] [address] [place] [address] October, Other chronic pain G89.29 an d Chronic hepatitis C without hepatic coma B18.2 [facility] [address] [id number] [address] [place] [address] Aug, Bipolar disorder, in partial remission, most recent episode hypomanic F31.71 ; Attention deficit hyperactivity disorder (ADHD), combined type F90.2 and Anxiety disorder, unspecified type F41.9 [facility] [address] [id number] [address] [place] [address] Aug, [facility] [address] [id number] [address] [place] [address] Aug, Bipolar disorder, in partial remission, most recent episode hypomanic F31.71 [facility] [address] [id number] [address] [place] [address] Aug, [facility] [address] [id number] [address] [place] [address] Aug, Bipolar disorder, in partial remission, most recent episode hypomanic F31.71 [facility] [address] [id number] [address] [place] [address] Aug, Bipolar disorder, in partial remission, most recent episode hypomanic F31.71 ; Attention deficit hyperactivity disorder (ADHD), combined type F90.2 and Anxiety disorder, unspecified type F41.9 [facility] [address] [id number] [address] [place] [address] Aug, Low back pain M54.5 and Pain in left wrist M25.532 [facility] [address] [id number] [address] [place] [address] Aug, [facility] [address] [facility] [id number] [address] [place] [address] Jun, [facility] [address] [id number] [address] [place] [address] Apr, Bipolar disorder, in partial remission, most recent episode hypomanic F31.71 [facility] [address] [id number] [address] [place] [address] Apr, [facility] [address] [facility] [id number] [address] [place] [address] Apr, Bipolar disorder, in partial remission, most recent episode hypomanic F31.71 ; Attention deficit hyperactivity disorder (ADHD), combined type F90.2 ; Anxiety disorder, unspecified type F41.9 and 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 [facility] [address] [id number] [address] [place] [address] Apr, Bipolar disorder, in partial remission, most recent episode hypomanic F31.71 [facility] [address] [facility] [id number] [address] [place] [address] Apr, Bipolar disorder, in partial remission, most recent episode hypomanic F31.71 [facility] [address] [facility] [id number] [address] [place] [address] Mar, [place] [address] [facility] [id number] [address] [place] [address] Mar, Bipolar disorder, in partial remission, most recent episode hypomanic F31.71 ; Encounter for immunization Z23 and Low back pain M54.5 [facility] [address] [id number] [address] [place] [id number] 17 Mar, 2018 Bipolar disorder, in partial remission, most recent episode hypomanic F31.71 [facility] [address] [facility] [id number] [address] [place] [address] Mar, Bipolar disorder, in partial remission, most recent episode hypomanic F31.71 [facility] [address] [facility] [id number] [address] [place] [address] Jan, Bipolar disorder, in partial remission, most recent episode hypomanic F31.71 [facility] [address] [facility] [id number] [address] [place] [address] Jan, Bipolar disorder, in partial remission, most recent episode hypomanic F31.71 [facility] [address] [id number] [address] [place] [address] Dec, Bipolar disorder, in partial remission, most recent episode hypomanic F31.71 [facility] [address] [id number] [address] [place] [address] Dec, Bipolar disorder, in partial remission, most recent episode hypomanic F31.71 ; Attention deficit hyperactivity disorder (ADHD), combined type F90.2 ; Anxiety disorder, unspecified type F41.9 and Other halfway (current) 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 Z79.899 [facility] [address] [id number] [address] [place] [address] Dec, Bipolar disorder, in partial remission, most recent episode hypomanic F31.71 [facility] [address] [id number] [address] [place] [address] Dec, Bipolar disorder, in partial remission, most recent episode hypomanic F31.71 [facility] [address] [id number] [address] [place] [address] October, Bipolar disorder, in partial remission, most recent episode hypomanic F31.71 [facility] [address] [id number] [address] [place] [address] October, [facility] [address] [facility] [id number] [address] [place] [address] October, [facility] [address] [facility] [id number] [address] [place] [address] Oct, Bipolar disorder, in partial remission, most recent episode hypomanic F31.71 ; Attention deficit hyperactivity disorder (ADHD), combined type F90.2 ; Anxiety disorder, unspecified type F41.9 and Encounter for drug screening Z02.83 [facility] [address] [id number] [address] [place] [address] Oct, Bipolar disorder, in partial remission, most recent episode hypomanic F31.71 [facility] [address] [facility] [id number] [address] [place] [address] Oct, Bipolar disorder, in partial remission, most recent episode hypomanic F31.71 [facility] [address] [id number] [address] [place] [address] Aug, Bipolar disorder, in partial remission, most recent episode hypomanic F31.71 [facility] [address] [id number] [address] [place] [address] Aug, Bipolar disorder, in partial remission, most recent episode hypomanic F31.71 [facility] [address] [id number] [address] [place] [address] Aug, Bipolar disorder, in partial remission, most recent episode hypomanic F31.71 [facility] [address] [facility] [id number] [address] [place] [address] Jul, Bipolar disorder, in partial remission, most recent episode hypomanic F31.71 ; Attention deficit hyperactivity disorder (ADHD), combined type F90.2 and Anxiety disorder, unspecified type F41.9 [facility] [address] [facility] [id number] [address] [place] [address] Jul, Bipolar disorder, in partial remission, most recent episode hypomanic F31.71 [facility] [address] [facility] [id number] [address] [place] [address] Jun, Bipolar disorder, in partial remission, most recent episode hypomanic F31.71 [facility] [address] [facility] [id number] [address] [place] [address] May, Bipolar disorder, in partial remission, most recent episode hypomanic F31.71 [facility] [address] [id number] [address] [place] [address] May, Bipolar disorder, in partial remission, most recent episode hypomanic F31.71 [facility] [address] [id number] [address] [place] [address] Apr, [facility] [address] [facility] [id number] [address] [place] [address] Apr, Bipolar disorder, in partial remission, most recent episode hypomanic F31.71 ; Attention deficit hyperactivity disorder (ADHD), combined type F90.2 ; Anxiety disorder, unspecified type F41.9 and Cannabis abuse F12.10 [facility] [address] [id number] [address] [place] [address] Apr, Attention deficit hyperactiv ity disorder (ADHD), combined type F90.2 [facility] [address] [id number] [address] [place] [address] Mar, Attention deficit hyperactiv ity disorder (ADHD), combined type F90.2 [facility] [address] [id number] [address] [place] [address] Mar, Anxiety disorder, unspecifie d type F41.9 [facility] [address] [id number] [address] [place] [address] Jan, Attention deficit hyperactiv ity disorder (ADHD), combined type F90.2 [facility] [address] [id number] [address] [place] [address] Jan, Anxiety disorder, unspecifie d type F41.9 [facility] [address] [facility] [id number] [address] [place] [address] Jan, Other chronic pain G89.29 ; Chronic hepatitis C without hepatic coma B18.2 and Bipolar 1 disorder F31.9 [facility] [address] [facility] [id number] [address] [place] [address] Dec, Attention deficit hyperactiv ity disorder (ADHD), combined type F90.2 [facility] [address] [id number] [address] [place] [address] Dec, Bipolar disorder, in partial remission, most recent episode hypomanic F31.71 ; Attention deficit hyperactivity disorder (ADHD), combined type F90.2 and Anxiety disorder, unspecified type F41.9 [facility] [address] [id number] [address] [place] [phone] 28 [place], 2017 Bipolar disorder, in partial remission, most recent episode hypomanic F31.71 ; Attention deficit hyperactivity disorder (ADHD), combined type F90.2 and Anxiety disorder, unspecified type F41.9 [facility] [address] [id number] [address] [place] [address] Dec, Bipolar 1 disorder F31.9 and Attention deficit R41.840 [facility] [address] [id number] [address] [place] [address] Oct, Other chronic pain G89.29 ; Alopecia L65.9 and Screening, lipid Z13.220 [facility] [address] [id number] [address] [place] [address] Oct, [facility] [address] [id number] [address] [place] [address] Aug, [facility] [address] [id number] [address] [place] [address] Aug, Eustachian tube dysfunction, right H69.81 ; Vertigo R42 and Other chronic pain G89.29 [facility] [address] [id number] [address] [place] [address] Aug, [facility] [address] [id number] [address] [place] [address] Jun, [facility] [address] [id number] [address] [place] [address] Jun, Low back pain M54.5 and Othe r chronic pain G89.29 [facility] [address] [id number] [address] [place] [address] Jun, [facility] [address] [id number] [address] [place] [address] May, [facility] [address] [id number] [address] [place] [address] Jan, [facility] [address] [id number] [address] [place] [address] Dec, [facility] [address] [id number] [address] [place] [address] Dec, [facility] [address] [id number] [address] [place] [address] Jun, [facility] [address] [facility] [id number] [address] [place] [address] Apr, Eustachian tube dysfunction, unspecified laterality H69.80 ; Hot flashes N95.1 and Encounter for immunization Z23 [facility] [address] [id number] [address] [place] [address] Jan, [facility] [address] [id number] [address] [place] [phone] Jan, [facility] [address] [facility] [id number] [address] [place] [address] Jan, [facility] [address] [facility] [id number] [address] [place] [address] Jan, [facility] [address] [facility] [id number] [address] [place] [address] Jan, Encounter to establish care V65.8 ; Bipolar 1 disorder 296.7 ; Abdominal pain 789.00 ; Constipation 564.00 ; Hard of hearing 389.9 and Drug abuse 305.90 [facility] [address] [id number] [address] [place] [address] Dec, [facility] [address] [id number] [address] [place] [address] October, [facility] [address] [facility] [id number] [address] [place] [address] October, [facility] [address] [facility] [id number] [address] [place] [address] Oct, [facility] [address] [facility] [id number] [address] [place] [address] Oct, [facility] [address] [id number] [address] [place] [address], [place] [address] Oct, [facility] [address] [id number] [address] [place] [address], [place] [address] Aug, [facility] [address] [id number] [address] [place] [address], [place] [address] Aug, [facility] [address] [id number] [address] [place] [address], [place] [address] Aug, [facility] [address] [id number] [address] [place] [address], [place] [address] Aug, 2014 [facility] [address] [id number] [address] [place] [address], [place] [address] Aug, 2014 [facility] [address] [id number] [address] [place] [address], [place] [address] Aug, 2014 [facility] [address] [id number] [address] [place] [address], [place] [address] Aug, 2014 [facility] [address] [id number] [address] [place] [address], [place] [address] Aug, 2014 [facility] [address] [id number] [address] [place] [address], [place] [address] Aug, 2014 [facility] [address] [id number] [address] [place] [address], [place] [address] Aug, 2014 [facility] [address] [id number] [address] [place] [address], [place] [address] Aug, 2014 [facility] [address] [id number] [address] [place] [address], [place] [address] Aug, 2014 [facility] [address] [id number] [address] [place] [address], [place] [address] Aug, 2014 [facility] [address] [id number] [address] [place] [address] Aug, 2014 [facility] [address] [id number] [address] [place] [address] Aug, [facility] [address] [id number] [address] [place] [address], [place] [address] Jul, [facility] [address] [id number] [address] [place] [address], [place] [address] Jul, [facility] [address] [id number] [address] [place] [address], [place] [address] Jul, [facility] [address] [id number] [address] [place] [address], [place] [address] Jul, [facility] [address] [id number] [address] [place] [address], [place] [address] Jul, [facility] [address] [id number] [address] [place] [address], [place] [address] Jul, [facility] [address] [id number] [address] [place] [address], [place] [address] Jul, [facility] [address] [id number] [address] [place] [address], [place] [address] Jul, [facility] [address] [id number] [address] [place] [address], [place] [address] Jun, [facility] [address] [id number] [address] [place] [address], [place] [address] Jun, [facility] [address] [id number] [address] [place] [address], [place] [address] Jun, [facility] [address] [id number] [address] [place] [address], [place] [address] 29 Jun, 2014 [facility] [address] [id number] [address] [place] [address], [place] [address] 18 Jun, 2014 [facility] [address] [id number] [address] [place] [address], [place] [address] Jun, [facility] [address] [id number] [address] [place] [address], [place] [address] Jun, [facility] [address] [id number] [address] [place] [address], [place] [address] Jun, [facility] [address] [id number] [address] [place] [address], [place] [address] Jun, [facility] [address] [id number] [address] [place] [address], [place] [address] Jun, [facility] [address] [id number] [address] [place] [address], [place] [address] Jun, [facility] [address] [id number] [address] [place] [address], [place] [address] May, [facility] [address] [id number] [address] [place] [address], [place] [address] May, [facility] [address] [id number] [address] [place] [address], [place] [address] May, [facility] [address] [id number] [address] [place] [address], [place] [address] May, [facility] [address] [id number] [address] [place] [address], [place] [address] May, [facility] [address] [id number] [address] [place] [address], [place] [address] May, [facility] [address] [id number] [address] [place] [address], [place] [address] May, [facility] [address] [id number] [address] [place] [address], [place] [address] Apr, [facility] [address] [id number] [address] [place] [address], [place] [address] Apr, [facility] [address] [id number] [address] [place] [address], [place] [address] Apr, [facility] [address] [id number] [address] [place] [address], [place] [address] Apr, [facility] [address] [id number] [address] [place] [address], [place] [address] Apr, [facility] [address] [id number] [address] [place] [address], [place] [address] Apr, [facility] [address] [id number] [address] [place] [address], [place] [address] Mar, [facility] [address] [id number] [address] [place] [address], [place] [address] Mar, [facility] [address] [id number] [address] [place] [address], [place] [address] Mar, [facility] [address] [id number] [address] [place] [address], [place] [address] Mar, [facility] [address] [id number] [address] [place] [address], [place] [address] Mar, [facility] [address] [id number] [address] [place] [address], [place] [address] Mar, [facility] [address] [id number] [address] [place] [address], [place] [address] Jan, [facility] [address] [id number] [address] [place] [address], [place] [address] Jan, [facility] [address] [id number] [address] [place] [address], [place] [address] Jan, [facility] [address] [id number] [address] [place] [address], [place] [address] Jan, [facility] [address] [id number] [address] [place] [address], [place] [address] Dec, [facility] [address] [id number] [address] [place] [address], [place] [address] Dec, [facility] [address] [id number] [address] [place] [address], [place] [address] Dec, [facility] [address] [id number] [address] [place] [address], [place] [address] Dec, [facility] [address] [id number] [address] [place] [address], [place] [address] Dec, [facility] [address] [id number] [address] [place] [address], [place] [address] Dec, [facility] [address] [id number] [address] [place] [address], [place] [address] Dec, [facility] [address] [id number] [address] [place] [address], [place] [address] Dec, [facility] [address] [id number] [address] [place] [address], [place] [address] Dec, [facility] [address] [id number] [address] [place] [address], [place] [address] Dec, [facility] [address] [id number] [address] [place] [address], [place] [address] Dec, [facility] [address] [id number] [address] [place] [address], [place] [address] Dec, [facility] [address] [id number] [address] [place] [address], [place] [address] October, [facility] [address] [id number] [address] [place] [address], [place] [address] October, [facility] [address] [id number] [address] [place] [address], [place] [address] October, [facility] [address] [id number] [address] [place] [address], [place] [address] October, [facility] [address] [id number] [address] [place] [address], [place] [address] October, [facility] [address] [id number] [address] [place] [address], [place] [address] October, [facility] [address] [id number] [address] [place] [address], [place] [address] Oct, [facility] [address] [id number] [address] [place] [address], [place] [address] Oct, [facility] [address] [id number] [address] [place] [address] Oct, [facility] [facility] [address] [id number] [facility] [place] [address] Oct, [facility] [address] [id number] [facility] [place] [address] Oct, [facility] [address] [id number] [address] [place] [address], [place] [address] Oct, [facility] [address] [id number] [facility] [place] [address] Oct, [facility] [address] [id number] [address] [place] [address], [place] [address] Oct, [facility] [address] [id number] [address] [place] [address], [place] [address] Oct, [facility] [address] [id number] [address] [place] [address], [place] [address] Oct, [facility] [address] [id number] [address] [place] [address], [place] [address] Oct, [facility] [address] [id number] [address] [place] [address], [place] [address] Oct, [facility] [address] [id number] [address] [place] [address], [place] [address] Aug, [facility] [address] [id number] [address] [place] [address], [place] [address] Aug, [facility] [address] [id number] [address] [place] [address], [place] [address] Aug, [facility] [address] [id number] [address] [place] [address], [place] [address] Aug, [facility] [address] [id number] [address] [place] [address], [place] [address] Aug, [facility] [address] [id number] [address] [place] [address], [place] [address] Aug, [facility] [address] [id number] [facility] [place] [address] 04 Aug, 2013 [facility] [address] [id number] [address] [place] [address], [place] [address] Aug, [facility] [address] [id number] [address] [place] [address], [place] [address] Aug, [facility] [address] [id number] [address] [place] [address], [place] [address] 24 Aug, 2013 [facility] [address] [id number] [address] [place] [address], [place] [address] 24 Aug, 2013 [facility] [address] [id number] [address] [place] [address], [place] [address] Aug, [facility] [address] [id number] [address] [place] [address], [place] [address] Aug, [facility] [address] [id number] [address] [place] [address], [place] [address] 20 Aug, 2013 [facility] [address] [id number] [address] [place] [address], [place] [address] 14 Aug, 2013 [facility] [address] [id number] [address] [place] [address], [place] [address] 14 Aug, 2013 [facility] [address] [id number] [address] [place] [address], [place] [address] 14 Aug, 2013 [facility] [address] [id number] [address] [place] [address], [place] [address] 14 Aug, 2013 [facility] [address] [id number] [address] [place] [address], [place] [address] 07 Aug, 2013 [facility] [address] [id number] [address] [place] [address], [place] [address] 07 Aug, 2013 [facility] [address] [id number] [address] [place] [address], [place] [address] 06 Aug, 2013 [facility] [address] [id number] [address] [place] [address], [place] [address] Aug, [facility] [address] [id number] [address] [place] [address], [place] [address] Aug, [facility] [address] [id number] [address] [place] [address], [place] [address] Aug, [facility] [address] [id number] [address] [place] [address], [place] [address] Aug, [facility] [address] [id number] [address] [place] [address], [place] [address] Jul, [facility] [address] [id number] [address] [place] [address], [place] [address] Jul, [facility] [address] [id number] [address] [place] [address], [place] [address] Jul, [facility] [address] [id number] [address] [place] [address], [place] [address] Jul, [facility] [address] [id number] [address] [place] [address], [place] [address] Jul, [facility] [address] [id number] [address] [place] [address], [place] [address] Jul, [facility] [address] [id number] [address] [place] [address], [place] [address] Jul, [facility] [address] [id number] [address] [place] [address], [place] [address] Jul, [facility] [address] [id number] [address] [place] [address], [place] [address] Jul, [facility] [address] [id number] [address] [place] [address], [place] [address] Jul, [facility] [address] [id number] [address] [place] [address], [place] [address] Jul, [facility] [address] [id number] [address] [place] [address], [place] [address] Jul, [facility] [address] [id number] [address] [place] [address], [place] [address] Jul, [facility] [address] [id number] [address] [place] [address], [place] [address] Jul, [facility] [address] [id number] [address] [place] [address], [place] [address] Jul, [facility] [address] [id number] [address] [place] [address], [place] [address] Jul, [facility] [address] [id number] [address] [place] [address], [place] [address] Jul, [facility] [address] [id number] [address] [place] [address], [place] [address] Jul, [facility] [address] [id number] [address] [place] [address], [place] [address] Jul, [facility] [address] [id number] [address] [place] [address], [place] [address] Jul, [facility] [address] [id number] [address] [place] [address], [place] [address] Jun, [facility] [address] [id number] [address] [place] [address], [place] [address] Jun, [facility] [address] [id number] [address] [place] [address], [place] [address] 30 Jun, 2013 [facility] [address] [id number] [address] [place] [address], [place] [address] 30 Jun, 2013 [facility] [address] [id number] [address] [place] [address], [place] [address] Jun, [facility] [address] [id number] [address] [place] [address], [place] [address] Jun, [facility] [address] [id number] [address] [place] [address], [place] [address] Jun, [facility] [address] [id number] [address] [place] [address], [place] [address] Jun, [facility] [address] [id number] [address] [place] [address], [place] [address] Jun, [facility] [address] [id number] [address] [place] [address], [place] [address] Jun, [facility] [address] [id number] [address] [place] [address], [place] [address] Jun, [facility] [address] [id number] [address] [place] [address], [place] [address] Jun, [facility] [address] [id number] [address] [place] [address], [place] [address] Jun, [facility] [address] [id number] [address] [place] [address], [place] [address] Jun, [facility] [address] [id number] [address] [place] [address], [place] [address] Jun, [facility] [address] [id number] [address] [place] [address], [place] [address] Jun, [facility] [address] [id number] [address] [place] [address], [place] [address] Jun, [facility] [address] [id number] [address] [place] [address], [place] [address] 17 Jun, 2013 [facility] [address] [id number] [address] [place] [address], [place] [address] 17 Jun, 2013 [facility] [address] [id number] [address] [place] [address], [place] [address] 13 Jun, 2013 [facility] [address] [id number] [address] [place] [address], [place] [address] Jun, [facility] [address] [id number] [address] [place] [address], [place] [address] Jun, [facility] [address] [id number] [address] [place] [address], [place] [address] Jun, [facility] [address] [id number] [address] [place] [address], [place] [address] Jun, [facility] [address] [id number] [address] [place] [address], [place] [address] Jun, [facility] [address] [id number] [address] [place] [address], [place] [address] Jun, [facility] [address] [id number] [address] [place] [address], [place] [address] Jun, [facility] [address] [id number] [address] [place] [address], [place] [address] May, [facility] [address] [id number] [address] [place] [address], [place] [address] May, [facility] [address] [id number] [address] [place] [address], [place] [address] May, [facility] [address] [id number] [address] [place] [address] May, [facility] [address] [id number] [address] [place] [address], [place] [address] May, [facility] [address] [id number] [address] [place] [address] May, [facility] [address] [id number] [address] [place] [address] Apr, [facility] [address] [id number] [address] [place] [address] Apr, [facility] [address] [id number] [address] [place] [address], [place] [address] Apr, [facility] [address] [id number] [address] [place] [address] Apr, [facility] [address] [id number] [address] [place] [address], [place] [address] Apr, [facility] [address] [id number] [address] [place] [address], [place] [address] 15 Apr, 2013 [facility] [address] [id number] [address] [place] [address], [place] [address] 15 Apr, 2013 [facility] [address] [id number] [address] [place] [address], [place] [address] 01 Apr, 2013 [facility] [address] [id number] [address] [place] [address], [place] [address] 26 Mar, 2012 [facility] [address] [id number] [address] [place] [address], [place] [address] 24 Mar, 2012 [facility] [address] [id number] [address] [place] [address], [place] [address] 17 Mar, 2012 [facility] [address] [id number] [address] [place] [address], [place] [address] 17 Mar, 2012 [facility] [address] [id number] [address] [place] [address], [place] [address] 11 Mar, 2012 [facility] [address] [id number] [address] [place] [address], [place] [address] 10 Mar, 2012 [facility] [address] [id number] [address] [place] [address], [place] [address] 05 Mar, 2012 [facility] [address] [id number] [address] [place] [address], [place] [address] 04 Mar, 2013 [facility] [address] [id number] [address] [place] [address], [place] [address] 20 Jan, 2013 [facility] [address] [id number] [address] [place] [address], [place] [address] 19 Jan, 2013 [facility] [address] [id number] [address] [place] [address], [place] [address] 14 Jan, 2013 [facility] [address] [id number] [address] [place] [address], [place] [address] 12 Jan, 2013 [facility] [address] [id number] [address] [place] [address], [place] [address] 07 Jan, 2013 [facility] [address] [id number] [address] [place] [address], [place] [address] 05 Jan, 2013 [facility] [address] [id number] [address] [place] [address], [place] [address] 31 Dec, 2012 [facility] [address] [id number] [address] [place] [address], [place] [address] 24 Dec, 2012 [facility] [address] [id number] [address] [place] [address], [place] [address] Dec, [facility] [address] [id number] [address] [place] [address], [place] [address] Dec, [facility] [address] [id number] [address] [place] [address], [place] [address] 18 Dec, 2012 [facility] [address] [id number] [address] [place] [address], [place] [address] 17 Dec, 2012 [facility] [address] [id number] [address] [place] [address], [place] [address] 16 Dec, 2012 [facility] [address] [id number] [address] [place] [address], [place] [address] 16 Dec, 2012 [facility] [address] [id number] [address] [place] [address], [place] [address] 15 Dec, 2012 [facility] [address] [id number] [address] [place] [address], [place] [address] Dec, [facility] [address] [id number] [address] [place] [address], [place] [address] Dec, [facility] [address] [id number] [address] [place] [address], [place] [address] Dec, [facility] [address] [id number] [address] [place] [address], [place] [address] Dec, [facility] [address] [id number] [address] [place] [address], [place] [address] 17 Dec, 2012 [facility] [address] [id number] [address] [place] [address], [place] [address] Dec, [facility] [address] [id number] [address] [place] [address], [place] [address] Dec, [facility] [address] [id number] [address] [place] [address], [place] [address] October, [facility] [address] [id number] [address] [place] [address], [place] [address] October, [facility] [address] [id number] [address] [place] [address], [place] [address] October, [facility] [address] [id number] [address] [place] [address], [place] [address] October, [facility] [address] [id number] [address] [place] [address], [place] [address] October, [facility] [address] [id number] [address] [place] [address], [place] [address] October, [facility] [address] [id number] [address] [place] [address], [place] [address] October, [facility] [address] [id number] [address] [place] [address], [place] [address] Oct, [facility] [address] [id number] [address] [place] [address], [place] [address] Oct, [facility] [address] [id number] [address] [place] [address], [place] [address] Oct, [facility] [address] [id number] [address] [place] [address], [place] [address] Oct, [facility] [address] [id number] [address] [place] [address], [place] [address] Oct, [facility] [address] [id number] [address] [place] [address], [place] [address] 18 Oct, 2012 [facility] [address] [id number] [address] [place] [address], [place] [address] Oct, [facility] [address] [id number] [address] [place] [address], [place] [address] 15 Oct, 2012 [facility] [address] [id number] [address] [place] [address], [place] [address] Oct, [facility] [address] [id number] [address] [place] [address], [place] [address] Oct, [facility] [address] [id number] [address] [place] [address], [place] [address] Oct, [facility] [address] [id number] [address] [place] [address], [place] [address] Oct, [facility] [address] [id number] [address] [place] [address], [place] [address] Aug, [facility] [address] [id number] [address] [place] [address], [place] [address] Aug, [facility] [address] [id number] [address] [place] [address], [place] [address] Aug, [facility] [address] [id number] [address] [place] [address], [place] [address] Aug, [facility] [address] [id number] [address] [place] [address], [place] [address] 05 Aug, 2012 [facility] [address] [id number] [address] [place] [address], [place] [address] 05 Aug, 2012 [facility] [address] [id number] [address] [place] [address], [place] [address] 20 Aug, 2012 [facility] [address] [id number] [address] [place] [address], [place] [address] 14 Aug, 2012 [facility] [address] [id number] [address] [place] [address], [place] [address] Aug, [facility] [address] [id number] [address] [place] [address], [place] [address] Aug, [facility] [address] [id number] [address] [place] [address], [place] [address] Jul, [facility] [address] [id number] [address] [place] [address], [place] [address] 15 Jul, 2012 [facility] [address] [id number] [address] [place] [address], [place] [address] 08 Jul, 2012 [facility] [address] [id number] [address] [place] [address], [place] [address] 20 Jun, 2012 [facility] [address] [id number] [address] [place] [address], [place] [address] 18 Jun, 2012 [facility] [address] [id number] [address] [place] [address], [place] [address] 18 Jun, 2012 [facility] [address] [id number] [address] [place] [address], [place] [address] 18 Jun, 2012 [facility] [address] [id number] [address] [place] [address], [place] [address] 18 Jun, 2012 [facility] [address] [id number] [address] [place] [address], [place] [address] 14 Jun, 2012 [facility] [address] [id number] [address] [place] [address], [place] [address] 14 Jun, 2012 [facility] [address] [id number] [address] [place] [address], [place] [address] 13 Jun, 2012 [facility] [address] [id number] [address] [place] [address], [place] [address] 13 Jun, 2012 [facility] [address] [id number] [address] [place] [address], [place] [address] 11 Jun, 2012 [facility] [address] [id number] [address] [place] [address], [place] [address] 11 Jun, 2012 [facility] [address] [id number] [address] [place] [address], [place] [address] 11 Jun, 2012 [facility] [address] [id number] [address] [place] [address], [place] [address] 11 Jun, 2012 [facility] [address] [id number] [address] [place] [address], [place] [address] 07 Jun, 2012 [facility] [address] [id number] [address] [place] [address], [place] [address] Jun, [facility] [address] [id number] [address] [place] [address], [place] [address] Jun, [facility] [address] [id number] [address] [place] [address], [place] [address] Jun, [facility] [address] [id number] [address] [place] [address], [place] [address] Jun, [facility] [address] [id number] [address] [place] [address], [place] [address] Jun, [facility] [address] [id number] [address] [place] [address], [place] [address] Jun, [facility] [address] [id number] [address] [place] [address], [place] [address] Jun, [facility] [address] [id number] [address] [place] [address], [place] [address] Jun, [facility] [address] [id number] [address] [place] [address], [place] [address] Jun, [facility] [address] [id number] [address] [place] [address], [place] [address] May, [facility] [address] [id number] [address] [place] [address], [place] [address] May, [facility] [address] [id number] [address] [place] [address], [place] [address] May, [facility] [address] [id number] [address] [place] [address], [place] [address] May, [facility] [address] [id number] [address] [place] [address], [place] [address] May, [facility] [address] [id number] [address] [place] [address], [place] [address] May, [facility] [address] [id number] [address] [place] [address], [place] [address] May, [facility] [address] [id number] [address] [place] [address], [place] [address] May, [facility] [address] [id number] [address] [place] [address], [place] [address] Apr, [facility] [address] [id number] [address] [place] [address], [place] [address] Apr, [facility] [address] [id number] [address] [place] [address], [place] [address] Apr, [facility] [address] [id number] [address] [place] [address], [place] [address] Apr, [facility] [address] [id number] [address] [place] [address], [place] [address] Apr, [facility] [address] [id number] [address] [place] [address], [place] [address] Apr, [facility] [address] [id number] [address] [place] [address], [place] [address] Apr, [facility] [address] [id number] [address] [place] [address], [place] [address] Apr, [facility] [address] [id number] [address] [place] [address], [place] [address] Apr, [facility] [address] [id number] [address] [place] [address], [place] [address] Apr, [facility] [address] [id number] [address] [place] [address], [place] [address] Apr, [facility] [address] [id number] [address] [place] [address], [place] [address] Apr, [facility] [address] [id number] [address] [place] [address], [place] [address] Mar, [facility] [address] [id number] [address] [place] [id number] 18 Mar, 2012 [facility] [address] [id number] [address] [place] [address], [place] [address] Mar, [facility] [address] [id number] [address] [place] [id number] Mar, [facility] [address] [id number] [address] [place] [id number] Mar, [facility] [address] [id number] [address] [place] [id number] Mar, [facility] [address] [id number] [address] [place] [address], [place] [address] Mar, [facility] [address] [id number] [address] [place] [id number] Jan, [facility] [address] [id number] [address] [place] [id number] Jan, [facility] [address] [id number] [address] [place] [id number] Jan, [facility] [address] [id number] [address] [place] [id number] Jan, [facility] [address] [id number] [address] [place] [id number] Jan, [facility] [address] [id number] [address] [place] [id number] Jan, [facility] [address] [id number] [address] [place] [id number] Jan, [facility] [address] [id number] [address] [place] [address], [place] [address] 14 Feb, 2012 [facility] [address] [id number] [address] [place] [id number] Jan, [facility] [address] [id number] [address] [place] [id number] Jan, [facility] [address] [id number] [address] [place] [address], [place] [address] Jan, [facility] [address] [id number] [address] [place] [address], [place] [address] Dec, [facility] [address] [id number] [address] [place] [address], [place] [address] Dec, [facility] [address] [id number] [address] [place] [address], [place] [address] Dec, [facility] [address] [id number] [address] [place] [address], [place] [address] Dec, [facility] [address] [id number] [address] [place] [address], [place] [address] Dec, [facility] [address] [id number] [address] [place] [address], [place] [address] Dec, [facility] [address] [id number] [address] [place] [address], [place] [address] Dec, [facility] [address] [id number] [address] [place] [address], [place] [address] 17 Jan, 2012 [facility] [address] [id number] [address] [place] [address], [place] [address] 16 Jan, 2012 [facility] [address] [id number] [address] [place] [address], [place] [address] Dec, [facility] [address] [id number] [address] [place] [address], [place] [address] Dec, [facility] [address] [id number] [address] [place] [address], [place] [address] Dec, [facility] [address] [id number] [address] [place] [address], [place] [address] Dec, [facility] [address] [id number] [address] [place] [address], [place] [address] Dec, [facility] [address] [id number] [address] [place] [address], [place] [address] Dec, [facility] [address] [id number] [address] [place] [address], [place] [address] Dec, [facility] [address] [id number] [address] [place] [address], [place] [address] Dec, [facility] [address] [id number] [address] [place] [address], [place] [address] Dec, [facility] [address] [id number] [address] [place] [address], [place] [address] Dec, [facility] [address] [id number] [address] [place] [address], [place] [address] October, [facility] [address] [id number] [address] [place] [address], [place] [address] October, [facility] [address] [id number] [address] [place] [address], [place] [address] October, [facility] [address] [id number] [address] [place] [address], [place] [address] October, [facility] [address] [id number] [address] [place] [address], [place] [address] October, [facility] [address] [id number] [address] [place] [address], [place] [address] October, [facility] [address] [id number] [address] [place] [address], [place] [address] Oct, [facility] [address] [id number] [address] [place] [address], [place] [address] Oct, [facility] [address] [id number] [address] [place] [address], [place] [address] Oct, [facility] [address] [id number] [address] [place] [address], [place] [address] Oct, [facility] [address] [id number] [address] [place] [address], [place] [address] Oct, [facility] [address] [id number] [address] [place] [address], [place] [address] Oct, [facility] [address] [id number] [address] [place] [address], [place] [address] Oct, [facility] [address] [id number] [address] [place] [address], [place] [address] 29 Sep, 2011 [facility] [address] [id number] [address] [place] [address], [place] [address] 29 Sep, 2011 [facility] [address] [id number] [address] [place] [address], [place] [address] Aug, [facility] [address] [id number] [address] [place] [address], [place] [address] Aug, [facility] [address] [id number] [address] [place] [address], [place] [address] Aug, [facility] [address] [id number] [address] [place] [address], [place] [address] Aug, [facility] [address] [id number] [address] [place] [address], [place] [address] Aug, [facility] [address] [id number] [address] [place] [address], [place] [address] Aug, [facility] [address] [id number] [address] [place] [address], [place] [address] Aug, [facility] [address] [id number] [address] [place] [address], [place] [address] Jul, [facility] [address] [id number] [address] [place] [address], [place] [address] Jul, [facility] [address] [id number] [address] [place] [address], [place] [address] Jul, [facility] [address] [id number] [address] [place] [address], [place] [address] Jul, [facility] [address] [id number] [address] [place] [address], [place] [address] Jun, [facility] [address] [id number] [address] [place] [address], [place] [address] Jun, [facility] [address] [id number] [address] [place] [address], [place] [address] May, [facility] [address] [id number] [address] [place] [address], [place] [address] May, [facility] [address] [id number] [address] [place] [address], [place] [address] May, [facility] [address] [id number] [address] [place] [address], [place] [address] May, [facility] [address] [id number] [address] [place] [address], [place] [address] May, [facility] [address] [id number] [address] [place] [address], [place] [address] Apr, [facility] [address] [id number] [address] [place] [address], [place] [address] Apr, [facility] [address] [id number] [address] [place] [address], [place] [address] Apr, [facility] [address] [id number] [address] [place] [address], [place] [address] 15 Jan, 2011 [facility] [address] [id number] [address] [place] [address], [place] [address] Dec, [facility] [address] [id number] [address] [place] [address], [place] [address] October, [facility] [address] [id number] [address] [place] [address], [place] [address] Jun, [facility] [address] [id number] [address] [place] [address], [place] [address] 23 Apr, 2009 [facility] [address] [id number] [address] [place] [address], [place] [address] 13 Apr, 2009 [facility] [address] [id number] [address] [place] [address], [place] [address] Apr, [facility] [address] [facility] [id number] [address] [place] [address] Jun, IMMUNIZATIONS No Known Immunizations SOCIAL HISTORY [...]
--- OUTSIDE RECORDS SUMMARY | 2020-01-25 12:37 | XMS REPORT ---
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 Name Role Phone MELISA Iraheta Unavailable PROBLEMS Type Condition ICD9-CM Code YAO50-GY Code Onset Dates Condition S tatus SNOMED Code Problem Attention deficit R41.840 Active 76 507995 Problem Chronic hepatitis C without hepatic coma B18.2 Active 984363429 Problem Cannabis abuse F12.10 Active 45359 009 Problem Bipolar disorder, in partial remission, most rec ent episode hypomanic F31.71 Active [id number] Problem Attention deficit hyperactivity disorder (ADHD), combi luciano type F90.2 Active 52923596 Problem Bipolar 1 disorder F31.9 Active 3 00795023 Problem H/O laminectomy Z98.89 Active 1616 19211 Problem Other chronic pain G89.29 Active 8 0126255 Problem Anxiety disorder, unspecified type F41.9 Active [id number] ALLERGIES No Information ENCOUNTERS Encounter Location Date Diagnosis [facility] [address] [id number] [address] [place] [id number] Mar, [facility] [address] [id number] [address] [place] [id number] Dec, Other chronic pain G89.29 an d Low back pain M54.5 [facility] [address] [id number] [address] [place] [phone] October, [facility] [address] [id number] [address] [place] [id number] October, [facility] [address] [id number] [address] [place] [id number] October, [facility] [address] [id number] [address] [place] [id number] October, Other chronic pain G89.29 an d Chronic hepatitis C without hepatic coma B18.2 [facility] [address] [id number] [address] [place] [id number] Aug, Bipolar disorder, in partial remission, most recent episode hypomanic F31.71 ; Attention deficit hyperactivity disorder (ADHD), combined type F90.2 and Anxiety disorder, unspecified type F41.9 [facility] [address] [id number] [address] [place] [id number] Aug, [facility] [address] [id number] [address] [place] [id number] Aug, Bipolar disorder, in partial remission, most recent episode hypomanic F31.71 [facility] [address] [id number] [address] [place] [phone] Aug, [facility] [address] [id number] [address] [place] [id number] Aug, Bipolar disorder, in partial remission, most recent episode hypomanic F31.71 [facility] [address] [id number] [address] [place] [id number] Aug, Bipolar disorder, in partial remission, most recent episode hypomanic F31.71 ; Attention deficit hyperactivity disorder (ADHD), combined type F90.2 and Anxiety disorder, unspecified type F41.9 [facility] [address] [id number] [address] [place] [address] Aug, Low back pain M54.5 and Pain in left wrist M25.532 [facility] [address] [id number] [address] [place] [id number] Aug, [facility] [address] [id number] [address] [place] [id number] Jun, [facility] [address] [id number] [address] [place] [address] Apr, Bipolar disorder, in partial remission, most recent episode hypomanic F31.71 [facility] [address] [id number] [address] [place] [id number] Apr, [facility] [address] [id number] [address] [place] [address] Apr, Bipolar disorder, in partial remission, most recent episode hypomanic F31.71 ; Attention deficit hyperactivity disorder (ADHD), combined type F90.2 ; Anxiety disorder, unspecified type F41.9 and Other watermaster (current) 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 Z79.899 [facility] [address] [id number] [address] [place] [id number] Apr, Bipolar disorder, in partial remission, most recent episode hypomanic F31.71 [facility] [address] [id number] [address] [place] [address] Apr, Bipolar disorder, in partial remission, most recent episode hypomanic F31.71 [facility] [address] [id number] [address] [place] [id number] Mar, [place] [address] [id number] [address] [place] [id number] Mar, Bipolar disorder, in partial remission, most recent episode hypomanic F31.71 ; Encounter for immunization Z23 and Low back pain M54.5 [facility] [address] [id number] [address] [place] [id number] 17 Mar, 2018 Bipolar disorder, in partial remission, most recent episode hypomanic F31.71 [facility] [address] [id number] [address] [place] [address] Mar, Bipolar disorder, in partial remission, most recent episode hypomanic F31.71 [facility] [address] [id number] [address] [place] [id number] Jan, Bipolar disorder, in partial remission, most recent episode hypomanic F31.71 [facility] [address] [id number] [address] [place] [id number] Jan, Bipolar disorder, in partial remission, most recent episode hypomanic F31.71 [facility] [address] [id number] [address] [place] [address] Dec, Bipolar disorder, in partial remission, most recent episode hypomanic F31.71 [facility] [address] [id number] [address] [place] [id number] Dec, Bipolar disorder, in partial remission, most recent episode hypomanic F31.71 ; Attention deficit hyperactivity disorder (ADHD), combined type F90.2 ; Anxiety disorder, unspecified type F41.9 and Other half-way (current) 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 Z79.899 [facility] [address] [id number] [address] [place] [id number] Dec, Bipolar disorder, in partial remission, most recent episode hypomanic F31.71 [facility] [address] [id number] [address] [place] [id number] Dec, Bipolar disorder, in partial remission, most recent episode hypomanic F31.71 [facility] [address] [id number] [address] [place] [id number] October, Bipolar disorder, in partial remission, most recent episode hypomanic F31.71 [facility] [address] [id number] [address] [place] [address] October, [facility] [address] [id number] [address] [place] [id number] October, [facility] [address] [id number] [address] [place] [id number] Oct, Bipolar disorder, in partial remission, most recent episode hypomanic F31.71 ; Attention deficit hyperactivity disorder (ADHD), combined type F90.2 ; Anxiety disorder, unspecified type F41.9 and Encounter for drug screening Z02.83 [facility] [address] [id number] [address] [place] [address] Oct, Bipolar disorder, in partial remission, most recent episode hypomanic F31.71 [facility] [address] [id number] [address] [place] [id number] Oct, Bipolar disorder, in partial remission, most recent episode hypomanic F31.71 [facility] [address] [id number] [address] [place] [id number] Aug, Bipolar disorder, in partial remission, most recent episode hypomanic F31.71 [facility] [address] [id number] [address] [place] [address] Aug, Bipolar disorder, in partial remission, most recent episode hypomanic F31.71 [facility] [address] [id number] [address] [place] [id number] Aug, Bipolar disorder, in partial remission, most recent episode hypomanic F31.71 [facility] [address] [id number] [address] [place] [id number] Jul, Bipolar disorder, in partial remission, most recent episode hypomanic F31.71 ; Attention deficit hyperactivity disorder (ADHD), combined type F90.2 and Anxiety disorder, unspecified type F41.9 [facility] [address] [id number] [address] [place] [id number] Jul, Bipolar disorder, in partial remission, most recent episode hypomanic F31.71 [facility] [address] [id number] [address] [place] [id number] Jun, Bipolar disorder, in partial remission, most recent episode hypomanic F31.71 [facility] [address] [id number] [address] [place] [id number] May, Bipolar disorder, in partial remission, most recent episode hypomanic F31.71 [facility] [address] [id number] [address] [place] [id number] May, Bipolar disorder, in partial remission, most recent episode hypomanic F31.71 [facility] [address] [id number] [address] [place] [id number] Apr, [facility] [address] [id number] [address] [place] [id number] Apr, Bipolar disorder, in partial remission, most recent episode hypomanic F31.71 ; Attention deficit hyperactivity disorder (ADHD), combined type F90.2 ; Anxiety disorder, unspecified type F41.9 and Cannabis abuse F12.10 [facility] [address] [id number] [address] [place] [id number] Apr, Attention deficit hyperactiv ity disorder (ADHD), combined type F90.2 [facility] [address] [id number] [address] [place] [id number] Mar, Attention deficit hyperactiv ity disorder (ADHD), combined type F90.2 [facility] [address] [id number] [address] [place] [id number] Mar, Anxiety disorder, unspecifie d type F41.9 [facility] [address] [id number] [address] [place] [phone] Jan, Attention deficit hyperactiv ity disorder (ADHD), combined type F90.2 [facility] [address] [id number] [address] [place] [id number] Jan, Anxiety disorder, unspecifie d type F41.9 [facility] [address] [id number] [address] [place] [id number] Jan, Other chronic pain G89.29 ; Chronic hepatitis C without hepatic coma B18.2 and Bipolar 1 disorder F31.9 [facility] [address] [id number] [address] [place] [id number] Dec, Attention deficit hyperactiv ity disorder (ADHD), combined type F90.2 [facility] [address] [id number] [address] [place] [id number] Dec, Bipolar disorder, in partial remission, most recent episode hypomanic F31.71 ; Attention deficit hyperactivity disorder (ADHD), combined type F90.2 and Anxiety disorder, unspecified type F41.9 [facility] [address] [id number] [address] [place] [id number] 28 [place], 2017 Bipolar disorder, in partial remission, most recent episode hypomanic F31.71 ; Attention deficit hyperactivity disorder (ADHD), combined type F90.2 and Anxiety disorder, unspecified type F41.9 [facility] [address] [id number] [address] [place] [id number] Dec, Bipolar 1 disorder F31.9 and Attention deficit R41.840 [facility] [address] [id number] [address] [place] [id number] Oct, Other chronic pain G89.29 ; Alopecia L65.9 and Screening, lipid Z13.220 [facility] [address] [id number] [address] [place] [id number] Oct, [facility] [address] [id number] [address] [place] [id number] Aug, [facility] [address] [id number] [address] [place] [id number] Aug, Eustachian tube dysfunction, right H69.81 ; Vertigo R42 and Other chronic pain G89.29 [facility] [address] [id number] [address] [place] [id number] Aug, [facility] [address] [id number] [address] [place] [id number] Jun, [facility] [address] [id number] [address] [place] [id number] Jun, Low back pain M54.5 and Othe r chronic pain G89.29 [facility] [address] [id number] [address] [place] [id number] Jun, [facility] [address] [id number] [address] [place] [id number] May, [facility] [address] [id number] [address] [place] [id number] Jan, [facility] [address] [id number] [address] [place] [phone] Dec, [facility] [address] [id number] [address] [place] [id number] Dec, [facility] [address] [id number] [address] [place] [id number] Jun, [facility] [address] [id number] [address] [place] [id number] Apr, Eustachian tube dysfunction, unspecified laterality H69.80 ; Hot flashes N95.1 and Encounter for immunization Z23 [facility] [address] [id number] [address] [place] [id number] Jan, [facility] [address] [id number] [address] [place] [id number] Jan, [facility] [address] [id number] [address] [place] [id number] Jan, [facility] [address] [id number] [address] [place] [id number] Jan, [facility] [address] [id number] [address] [place] [id number] Jan, Encounter to establish care V65.8 ; Bipolar 1 disorder 296.7 ; Abdominal pain 789.00 ; Constipation 564.00 ; Hard of hearing 389.9 and Drug abuse 305.90 [facility] [address] [id number] [address] [place] [id number] Dec, [facility] [address] [id number] [address] [place] [id number] October, [facility] [address] [id number] [address] [place] [id number] October, [facility] [address] [id number] [address] [place] [id number] Oct, [facility] [address] [id number] [address] [place] [id number] Oct, [facility] [address] [id number] [address] [place] [address], [place] [address] Oct, [facility] [address] [id number] [address] [place] [address], [place] [address] Aug, [facility] [address] [id number] [address] [place] [address], [place] [address] Aug, [facility] [address] [id number] [address] [place] [address], [place] [address] Aug, [facility] [address] [id number] [address] [place] [address], [place] [id number] Aug, 2014 [facility] [address] [id number] [address] [place] [address], [place] [address] Aug, 2014 [facility] [address] [id number] [address] [place] [address], [place] [address] Aug, 2014 [facility] [address] [id number] [address] [place] [address], [place] [id number] Aug, 2014 [facility] [address] [id number] [address] [place] [address], [place] [address] Aug, 2014 [facility] [address] [id number] [address] [place] [address], [place] [address] Aug, 2014 [facility] [address] [id number] [address] [place] [address], [place] [address] Aug, 2014 [facility] [address] [id number] [address] [place] [address], [place] [address] Aug, 2014 [facility] [address] [id number] [address] [place] [address], [place] [address] Aug, 2014 [facility] [address] [id number] [address] [place] [address], [place] [address] Aug, 2014 [facility] [address] [id number] [address] [place] [phone] Aug, 2014 [facility] [address] [id number] [address] [place] [id number] Aug, [facility] [address] [id number] [address] [place] [address], [place] [address] Jul, [facility] [address] [id number] [address] [place] [address], [place] [address] Jul, [facility] [address] [id number] [address] [place] [address], [place] [address] Jul, [facility] [address] [id number] [address] [place] [address], [place] [address] Jul, [facility] [address] [id number] [address] [place] [address], [place] [address] Jul, [facility] [address] [id number] [address] [place] [address], [place] [address] Jul, [facility] [address] [id number] [address] [place] [address], [place] [address] Jul, [facility] [address] [id number] [address] [place] [address], [place] [address] Jul, [facility] [address] [id number] [address] [place] [address], [place] [address] Jun, [facility] [address] [id number] [address] [place] [address], [place] [address] Jun, [facility] [address] [id number] [address] [place] [address], [place] [address] Jun, [facility] [address] [id number] [address] [place] [address], [place] [address] 29 Jun, 2014 [facility] [address] [id number] [address] [place] [address], [place] [address] 18 Jun, 2014 [facility] [address] [id number] [address] [place] [address], [place] [address] Jun, [facility] [address] [id number] [address] [place] [address], [place] [address] Jun, [facility] [address] [id number] [address] [place] [address], [place] [address] Jun, [facility] [address] [id number] [address] [place] [address], [place] [address] Jun, [facility] [address] [id number] [address] [place] [address], [place] [address] Jun, [facility] [address] [id number] [address] [place] [address], [place] [address] Jun, [facility] [address] [id number] [address] [place] [address], [place] [address] May, [facility] [address] [id number] [address] [place] [address], [place] [address] May, [facility] [address] [id number] [address] [place] [address], [place] [address] May, [facility] [address] [id number] [address] [place] [address], [place] [address] May, [facility] [address] [id number] [address] [place] [address], [place] [address] May, [facility] [address] [id number] [address] [place] [address], [place] [address] May, [facility] [address] [id number] [address] [place] [address], [place] [address] May, [facility] [address] [id number] [address] [place] [address], [place] [address] Apr, [facility] [address] [id number] [address] [place] [address], [place] [address] Apr, [facility] [address] [id number] [address] [place] [address], [place] [address] Apr, [facility] [address] [id number] [address] [place] [address], [place] [address] Apr, [facility] [address] [id number] [address] [place] [address], [place] [address] Apr, [facility] [address] [id number] [address] [place] [address], [place] [address] Apr, [facility] [address] [id number] [address] [place] [address], [place] [address] Mar, [facility] [address] [id number] [address] [place] [address], [place] [address] Mar, [facility] [address] [id number] [address] [place] [address], [place] [address] Mar, [facility] [address] [id number] [address] [place] [address], [place] [address] Mar, [facility] [address] [id number] [address] [place] [address], [place] [address] Mar, [facility] [address] [id number] [address] [place] [address], [place] [address] Mar, [facility] [address] [id number] [address] [place] [address], [place] [address] Jan, [facility] [address] [id number] [address] [place] [address], [place] [address] Jan, [facility] [address] [id number] [address] [place] [address], [place] [address] Jan, [facility] [address] [id number] [address] [place] [address], [place] [address] Jan, [facility] [address] [id number] [address] [place] [address], [place] [address] Dec, [facility] [address] [id number] [address] [place] [address], [place] [address] Dec, [facility] [address] [id number] [address] [place] [address], [place] [address] Dec, [facility] [address] [id number] [address] [place] [address], [place] [address] Dec, [facility] [address] [id number] [address] [place] [address], [place] [address] Dec, [facility] [address] [id number] [address] [place] [address], [place] [address] Dec, [facility] [address] [id number] [address] [place] [address], [place] [address] Dec, [facility] [address] [id number] [address] [place] [address], [place] [address] Dec, [facility] [address] [id number] [address] [place] [address], [place] [address] Dec, [facility] [address] [id number] [address] [place] [address], [place] [address] Dec, [facility] [address] [id number] [address] [place] [address], [place] [id number] Dec, [facility] [address] [id number] [address] [place] [address], [place] [address] Dec, [facility] [address] [id number] [address] [place] [address], [place] [id number] October, [facility] [address] [id number] [address] [place] [address], [place] [id number] October, [facility] [address] [id number] [address] [place] [address], [place] [address] October, [facility] [address] [id number] [address] [place] [address], [place] [id number] October, [facility] [address] [id number] [address] [place] [address], [place] [id number] October, [facility] [address] [id number] [address] [place] [address], [place] [address] October, [facility] [address] [id number] [address] [place] [address], [place] [id number] Oct, [facility] [address] [id number] [address] [place] [address], [place] [address] Oct, [facility] [address] [id number] [facility] [address] Oct, [facility] [address] [id number] [facility] [place] [address] Oct, [facility] [address] [id number] [facility] [place] [address] Oct, [facility] [address] [id number] [address] [place] [address], [place] [address] Oct, [facility] [address] [id number] [facility] [place] [address] Oct, [facility] [address] [id number] [address] [place] [address], [place] [id number] Oct, [facility] [address] [id number] [address] [place] [address], [place] [id number] Oct, [facility] [address] [id number] [address] [place] [address], [place] [address] Oct, [facility] [address] [id number] [address] [place] [address], [place] [address] Oct, [facility] [address] [id number] [address] [place] [address], [place] [address] Oct, [facility] [address] [id number] [address] [place] [address], [place] [address] Aug, [facility] [address] [id number] [address] [place] [address], [place] [address] Aug, [facility] [address] [id number] [address] [place] [address], [place] [address] Aug, [facility] [address] [id number] [address] [place] [address], [place] [address] Aug, [facility] [address] [id number] [address] [place] [address], [place] [address] Aug, [facility] [address] [id number] [address] [place] [address], [place] [address] Aug, [facility] [address] [id number] [facility] [address] 04 Aug, 2013 [facility] [address] [id number] [address] [place] [address], [place] [address] Aug, [facility] [address] [id number] [address] [place] [address], [place] [address] Aug, [facility] [address] [id number] [address] [place] [address], [place] [address] 24 Aug, 2013 [facility] [address] [id number] [address] [place] [address], [place] [address] 24 Aug, 2013 [facility] [address] [id number] [address] [place] [address], [place] [address] Aug, [facility] [address] [id number] [address] [place] [address], [place] [address] Aug, [facility] [address] [id number] [address] [place] [address], [place] [address] 20 Aug, 2013 [facility] [address] [id number] [address] [place] [address], [place] [address] 14 Aug, 2013 [facility] [address] [id number] [address] [place] [address], [place] [address] 14 Aug, 2013 [facility] [address] [id number] [address] [place] [address], [place] [address] 14 Aug, 2013 [facility] [address] [id number] [address] [place] [address], [place] [address] 14 Aug, 2013 [facility] [address] [id number] [address] [place] [address], [place] [address] 07 Aug, 2013 [facility] [address] [id number] [address] [place] [address], [place] [address] 07 Aug, 2013 [facility] [address] [id number] [address] [place] [address], [place] [address] 06 Aug, 2013 [facility] [address] [id number] [address] [place] [address], [place] [address] Aug, [facility] [address] [id number] [address] [place] [address], [place] [address] Aug, [facility] [address] [id number] [address] [place] [address], [place] [address] Aug, [facility] [address] [id number] [address] [place] [address], [place] [address] Aug, [facility] [address] [id number] [address] [place] [address], [place] [address] Jul, [facility] [address] [id number] [address] [place] [address], [place] [address] Jul, [facility] [address] [id number] [address] [place] [address], [place] [address] Jul, [facility] [address] [id number] [address] [place] [address], [place] [address] Jul, [facility] [address] [id number] [address] [place] [address], [place] [address] Jul, [facility] [address] [id number] [address] [place] [address], [place] [address] Jul, [facility] [address] [id number] [address] [place] [address], [place] [address] Jul, [facility] [address] [id number] [address] [place] [address], [place] [address] Jul, [facility] [address] [id number] [address] [place] [address], [place] [address] Jul, [facility] [address] [id number] [address] [place] [address], [place] [address] Jul, [facility] [address] [id number] [address] [place] [address], [place] [address] Jul, [facility] [address] [id number] [address] [place] [address], [place] [address] Jul, [facility] [address] [id number] [address] [place] [address], [place] [address] Jul, [facility] [address] [id number] [address] [place] [address], [place] [address] Jul, [facility] [address] [id number] [address] [place] [address], [place] [address] Jul, [facility] [address] [id number] [address] [place] [address], [place] [address] Jul, [facility] [address] [id number] [address] [place] [address], [place] [address] Jul, [facility] [address] [id number] [address] [place] [address], [place] [address] Jul, [facility] [address] [id number] [address] [place] [address], [place] [address] Jul, [facility] [address] [id number] [address] [place] [address], [place] [address] Jul, [facility] [address] [id number] [address] [place] [address], [place] [address] Jun, [facility] [address] [id number] [address] [place] [address], [place] [address] Jun, [facility] [address] [id number] [address] [place] [address], [place] [address] 30 Jun, 2013 [facility] [address] [id number] [address] [place] [address], [place] [address] 30 Jun, 2013 [facility] [address] [id number] [address] [place] [address], [place] [address] Jun, [facility] [address] [id number] [address] [place] [address], [place] [address] Jun, [facility] [address] [id number] [address] [place] [address], [place] [address] Jun, [facility] [address] [id number] [address] [place] [address], [place] [address] Jun, [facility] [address] [id number] [address] [place] [address], [place] [address] Jun, [facility] [address] [id number] [address] [place] [address], [place] [address] Jun, [facility] [address] [id number] [address] [place] [address], [place] [address] Jun, [facility] [address] [id number] [address] [place] [address], [place] [address] Jun, [facility] [address] [id number] [address] [place] [address], [place] [address] Jun, [facility] [address] [id number] [address] [place] [address], [place] [address] Jun, [facility] [address] [id number] [address] [place] [address], [place] [address] Jun, [facility] [address] [id number] [address] [place] [address], [place] [address] Jun, [facility] [address] [id number] [address] [place] [address], [place] [address] Jun, [facility] [address] [id number] [address] [place] [address], [place] [address] 17 Jun, 2013 [facility] [address] [id number] [address] [place] [address], [place] [address] 17 Jun, 2013 [facility] [address] [id number] [address] [place] [address], [place] [address] 13 Jun, 2013 [facility] [address] [id number] [address] [place] [address], [place] [address] Jun, [facility] [address] [id number] [address] [place] [address], [place] [address] Jun, [facility] [address] [id number] [address] [place] [address], [place] [address] Jun, [facility] [address] [id number] [address] [place] [address], [place] [address] Jun, [facility] [address] [id number] [address] [place] [address], [place] [address] Jun, [facility] [address] [id number] [address] [place] [address], [place] [address] Jun, [facility] [address] [id number] [address] [place] [address], [place] [address] Jun, [facility] [address] [id number] [address] [place] [address], [place] [address] May, [facility] [address] [id number] [address] [place] [address], [place] [address] May, [facility] [address] [id number] [address] [place] [address], [place] [address] May, [facility] [address] [id number] [address] [place] [address] May, [facility] [address] [id number] [address] [place] [address], [place] [address] May, [facility] [address] [id number] [address] [place] [address] May, [facility] [address] [id number] [address] [place] [address] Apr, [facility] [address] [id number] [address] [place] [address] Apr, [facility] [address] [id number] [address] [place] [address], [place] [address] Apr, [facility] [address] [id number] [address] [place] [address] Apr, [facility] [address] [id number] [address] [place] [address], [place] [address] Apr, [facility] [address] [id number] [address] [place] [address], [place] [address] 15 Apr, 2013 [facility] [address] [id number] [address] [place] [address], [place] [address] 15 Apr, 2013 [facility] [address] [id number] [address] [place] [address], [place] [address] 01 Apr, 2013 [facility] [address] [id number] [address] [place] [address], [place] [address] 26 Mar, 2012 [facility] [address] [id number] [address] [place] [address], [place] [address] 24 Mar, 2012 [facility] [address] [id number] [address] [place] [address], [place] [address] 17 Mar, 2012 [facility] [address] [id number] [address] [place] [address], [place] [address] 17 Mar, 2012 [facility] [address] [id number] [address] [place] [address], [place] [address] 11 Mar, 2012 [facility] [address] [id number] [address] [place] [address], [place] [address] 10 Mar, 2012 [facility] [address] [id number] [address] [place] [address], [place] [address] 05 Mar, 2012 [facility] [address] [id number] [address] [place] [address], [place] [address] 04 Mar, 2013 [facility] [address] [id number] [address] [place] [address], [place] [address] 20 Jan, 2013 [facility] [address] [id number] [address] [place] [address], [place] [address] 19 Jan, 2013 [facility] [address] [id number] [address] [place] [address], [place] [address] 14 Jan, 2013 [facility] [address] [id number] [address] [place] [address], [place] [address] 12 Jan, 2013 [facility] [address] [id number] [address] [place] [address], [place] [address] 07 Jan, 2013 [facility] [address] [id number] [address] [place] [address], [place] [address] 05 Jan, 2013 [facility] [address] [id number] [address] [place] [address], [place] [address] 31 Dec, 2012 [facility] [address] [id number] [address] [place] [address], [place] [address] 24 Dec, 2012 [facility] [address] [id number] [address] [place] [address], [place] [address] Dec, [facility] [address] [id number] [address] [place] [address], [place] [address] Dec, [facility] [address] [id number] [address] [place] [address], [place] [address] 18 Dec, 2012 [facility] [address] [id number] [address] [place] [address], [place] [address] 17 Dec, 2012 [facility] [address] [id number] [address] [place] [address], [place] [address] 16 Dec, 2012 [facility] [address] [id number] [address] [place] [address], [place] [address] 16 Dec, 2012 [facility] [address] [id number] [address] [place] [address], [place] [address] 15 Dec, 2012 [facility] [address] [id number] [address] [place] [address], [place] [address] Dec, [facility] [address] [id number] [address] [place] [address], [place] [address] Dec, [facility] [address] [id number] [address] [place] [address], [place] [address] Dec, [facility] [address] [id number] [address] [place] [address], [place] [address] Dec, [facility] [address] [id number] [address] [place] [address], [place] [address] 17 Dec, 2012 [facility] [address] [id number] [address] [place] [address], [place] [address] Dec, [facility] [address] [id number] [address] [place] [address], [place] [address] Dec, [facility] [address] [id number] [address] [place] [address], [place] [address] October, [facility] [address] [id number] [address] [place] [address], [place] [address] October, [facility] [address] [id number] [address] [place] [address], [place] [address] October, [facility] [address] [id number] [address] [place] [address], [place] [address] October, [facility] [address] [id number] [address] [place] [address], [place] [address] October, [facility] [address] [id number] [address] [place] [address], [place] [address] October, [facility] [address] [id number] [address] [place] [address], [place] [address] October, [facility] [address] [id number] [address] [place] [address], [place] [address] Oct, [facility] [address] [id number] [address] [place] [address], [place] [address] Oct, [facility] [address] [id number] [address] [place] [address], [place] [address] Oct, [facility] [address] [id number] [address] [place] [address], [place] [address] Oct, [facility] [address] [id number] [address] [place] [address], [place] [address] Oct, [facility] [address] [id number] [address] [place] [address], [place] [address] 18 Oct, 2012 [facility] [address] [id number] [address] [place] [address], [place] [address] Oct, [facility] [address] [id number] [address] [place] [address], [place] [address] 15 Oct, 2012 [facility] [address] [id number] [address] [place] [address], [place] [address] Oct, [facility] [address] [id number] [address] [place] [address], [place] [address] Oct, [facility] [address] [id number] [address] [place] [address], [place] [address] Oct, [facility] [address] [id number] [address] [place] [address], [place] [address] Oct, [facility] [address] [id number] [address] [place] [address], [place] [address] Aug, [facility] [address] [id number] [address] [place] [address], [place] [address] Aug, [facility] [address] [id number] [address] [place] [address], [place] [address] Aug, [facility] [address] [id number] [address] [place] [address], [place] [address] Aug, [facility] [address] [id number] [address] [place] [address], [place] [address] 05 Aug, 2012 [facility] [address] [id number] [address] [place] [address], [place] [address] 05 Aug, 2012 [facility] [address] [id number] [address] [place] [address], [place] [address] 20 Aug, 2012 [facility] [address] [id number] [address] [place] [address], [place] [address] 14 Aug, 2012 [facility] [address] [id number] [address] [place] [address], [place] [address] Aug, [facility] [address] [id number] [address] [place] [address], [place] [address] Aug, [facility] [address] [id number] [address] [place] [address], [place] [address] Jul, [facility] [address] [id number] [address] [place] [address], [place] [address] 15 Jul, 2012 [facility] [address] [id number] [address] [place] [address], [place] [address] 08 Jul, 2012 [facility] [address] [id number] [address] [place] [address], [place] [id number] 20 Jun, 2012 [facility] [address] [id number] [address] [place] [address], [place] [address] 18 Jun, 2012 [facility] [address] [id number] [address] [place] [address], [place] [address] 18 Jun, 2012 [facility] [address] [id number] [address] [place] [address], [place] [address] 18 Jun, 2012 [facility] [address] [id number] [address] [place] [address], [place] [id number] 18 Jun, 2012 [facility] [address] [id number] [address] [place] [address], [place] [id number] 14 Jun, 2012 [facility] [address] [id number] [address] [place] [address], [place] [id number] 14 Jun, 2012 [facility] [address] [id number] [address] [place] [address], [place] [id number] 13 Jun, 2012 [facility] [address] [id number] [address] [place] [address], [place] [id number] 13 Jun, 2012 [facility] [address] [id number] [address] [place] [address], [place] [id number] 11 Jun, 2012 [facility] [address] [id number] [address] [place] [address], [place] [id number] 11 Jun, 2012 [facility] [address] [id number] [address] [place] [address], [place] [id number] 11 Jun, 2012 [facility] [address] [id number] [address] [place] [address], [place] [id number] 11 Jun, 2012 [facility] [address] [id number] [address] [place] [address], [place] [id number] 07 Jun, 2012 [facility] [address] [id number] [address] [place] [address], [place] [id number] Jun, [facility] [address] [id number] [address] [place] [address], [place] [id number] Jun, [facility] [address] [id number] [address] [place] [address], [place] [id number] Jun, [facility] [address] [id number] [address] [place] [address], [place] [address] Jun, [facility] [address] [id number] [address] [place] [address], [place] [id number] Jun, [facility] [address] [id number] [address] [place] [address], [place] [id number] Jun, [facility] [address] [id number] [address] [place] [address], [place] [id number] Jun, [facility] [address] [id number] [address] [place] [address], [place] [id number] Jun, [facility] [address] [id number] [address] [place] [address], [place] [id number] Jun, [facility] [address] [id number] [address] [place] [address], [place] [address] May, [facility] [address] [id number] [address] [place] [address], [place] [address] May, [facility] [address] [id number] [address] [place] [address], [place] [id number] May, [facility] [address] [id number] [address] [place] [address], [place] [id number] May, [facility] [address] [id number] [address] [place] [address], [place] [address] May, [facility] [address] [id number] [address] [place] [address], [place] [address] May, [facility] [address] [id number] [address] [place] [address], [place] [address] May, [facility] [address] [id number] [address] [place] [address], [place] [address] May, [facility] [address] [id number] [address] [place] [address], [place] [address] Apr, [facility] [address] [id number] [address] [place] [address], [place] [address] Apr, [facility] [address] [id number] [address] [place] [address], [place] [address] Apr, [facility] [address] [id number] [address] [place] [address], [place] [address] Apr, [facility] [address] [id number] [address] [place] [address], [place] [id number] Apr, [facility] [address] [id number] [address] [place] [address], [place] [address] Apr, [facility] [address] [id number] [address] [place] [address], [place] [address] Apr, [facility] [address] [id number] [address] [place] [address], [place] [id number] Apr, [facility] [address] [id number] [address] [place] [address], [place] [address] Apr, [facility] [address] [id number] [address] [place] [address], [place] [address] Apr, [facility] [address] [id number] [address] [place] [address], [place] [id number] Apr, [facility] [address] [id number] [address] [place] [address], [place] [id number] Apr, [facility] [address] [id number] [address] [place] [address], [place] [address] Mar, [facility] [address] [id number] [address] [place] [id number] 18 Mar, 2012 [facility] [address] [id number] [address] [place] [address], [place] [address] Mar, [facility] [address] [id number] [address] [place] [id number] Mar, [facility] [address] [id number] [address] [place] [id number] Mar, [facility] [address] [id number] [address] [place] [id number] Mar, [facility] [address] [id number] [address] [place] [address], [place] [address] Mar, [facility] [address] [id number] [address] [place] [id number] Jan, [facility] [address] [id number] [address] [place] [id number] Jan, [facility] [address] [id number] [address] [place] [id number] Jan, [facility] [address] [id number] [address] [place] [address] [id number] Jan, [facility] [address] [id number] [address] [place] [id number] Jan, [facility] [address] [id number] [address] [place] [id number] Jan, [facility] [address] [id number] [address] [place] [id number] Jan, [facility] [address] [id number] [address] [place] [address], [place] [address] 14 Feb, 2012 [facility] [address] [id number] [address] [place] [id number] Jan, [facility] [address] [id number] [address] [place] [id number] Jan, [facility] [address] [id number] [address] [place] [address], [place] [address] Jan, [facility] [address] [id number] [address] [place] [address], [place] [address] Dec, [facility] [address] [id number] [address] [place] [address], [place] [id number] Dec, [facility] [address] [id number] [address] [place] [address], [place] [address] Dec, [facility] [address] [id number] [address] [place] [address], [place] [id number] Dec, [facility] [address] [id number] [address] [place] [address], [place] [address] Dec, [facility] [address] [id number] [address] [place] [address], [place] [address] Dec, [facility] [address] [id number] [address] [place] [address], [place] [id number] Dec, [facility] [address] [id number] [address] [place] [address], [place] [id number] 17 Jan, 2012 [facility] [address] [id number] [address] [place] [address], [place] [id number] 16 Jan, 2012 [facility] [address] [id number] [address] [place] [address], [place] [id number] Dec, [facility] [address] [id number] [address] [place] [address], [place] [address] Dec, [facility] [address] [id number] [address] [place] [address], [place] [address] Dec, [facility] [address] [id number] [address] [place] [address], [place] [address] Dec, [facility] [address] [id number] [address] [place] [address], [place] [address] Dec, [facility] [address] [id number] [address] [place] [address], [place] [id number] Dec, [facility] [address] [id number] [address] [place] [address], [place] [address] Dec, [facility] [address] [id number] [address] [place] [address], [place] [id number] Dec, [facility] [address] [id number] [address] [place] [address], [place] [address] Dec, [facility] [address] [id number] [address] [place] [address], [place] [id number] Dec, [facility] [address] [id number] [address] [place] [address], [place] [id number] October, [facility] [address] [id number] [address] [place] [address], [place] [address] October, [facility] [address] [id number] [address] [place] [address], [place] [address] October, [facility] [address] [id number] [address] [place] [address], [place] [address] October, [facility] [address] [id number] [address] [place] [address], [place] [id number] October, [facility] [address] [id number] [address] [place] [address], [place] [address] October, [facility] [address] [id number] [address] [place] [address], [place] [address] Oct, [facility] [address] [id number] [address] [place] [address], [place] [address] Oct, [facility] [address] [id number] [address] [place] [address], [place] [address] Oct, [facility] [address] [id number] [address] [place] [address], [place] [address] Oct, [facility] [address] [id number] [address] [place] [address], [place] [address] Oct, [facility] [address] [id number] [address] [place] [address], [place] [address] Oct, [facility] [address] [id number] [address] [place] [address], [place] [address] Oct, [facility] [address] [id number] [address] [place] [address], [place] [id number] 29 Sep, 2011 [facility] [address] [id number] [address] [place] [address], [place] [address] 29 Sep, 2011 [facility] [address] [id number] [address] [place] [address], [place] [address] Aug, [facility] [address] [id number] [address] [place] [address], [place] [address] Aug, [facility] [address] [id number] [address] [place] [address], [place] [address] Aug, [facility] [address] [id number] [address] [place] [address], [place] [address] Aug, [facility] [address] [id number] [address] [place] [address], [place] [address] Aug, [facility] [address] [id number] [address] [place] [address], [place] [address] Aug, [facility] [address] [id number] [address] [place] [address], [place] [address] Aug, [facility] [address] [id number] [address] [place] [address], [place] [address] Jul, [facility] [address] [id number] [address] [place] [address], [place] [address] Jul, [facility] [address] [id number] [address] [place] [address], [place] [address] Jul, [facility] [address] [id number] [address] [place] [address], [place] [address] Jul, [facility] [address] [id number] [address] [place] [address], [place] [address] Jun, [facility] [address] [id number] [address] [place] [address], [place] [address] Jun, [facility] [address] [id number] [address] [place] [address], [place] [address] May, [facility] [address] [id number] [address] [place] [address], [place] [address] May, [facility] [address] [id number] [address] [place] [address], [place] [address] May, [facility] [address] [id number] [address] [place] [address], [place] [address] May, [facility] [address] [id number] [address] [place] [address], [place] [address] May, [facility] [address] [id number] [address] [place] [address], [place] [address] Apr, [facility] [address] [id number] [address] [place] [address], [place] [address] Apr, [facility] [address] [id number] [address] [place] [address], [place] [address] Apr, [facility] [address] [id number] [address] [place] [address], [place] [address] 15 Jan, 2011 [facility] [address] [id number] [address] [place] [address], [place] [address] Dec, [facility] [address] [id number] [address] [place] [address], [place] [address] October, [facility] [address] [id number] [address] [place] [address], [place] [address] Jun, [facility] [address] [id number] [address] [place] [address], [place] [address] 23 Apr, 2009 [facility] [address] [id number] [address] [place] [address], [place] [id number] 13 Apr, 2009 [facility] [address] [id number] [address] [place] [address], [place] [address] Apr, [facility] [address] [facility] [id number] [address] [place] [address] Jun, IMMUNIZATIONS No Known Immunizations SOCIAL HISTORY [...]
--- OUTSIDE RECORDS SUMMARY | 2020-01-25 12:37 | XMS REPORT ---
Author Author Ana Mayer Doctor Organization [facility] Address Unknown Phone Unavailable Care Team Providers Care Pedodontist Name Role Phone Migration, Doctor Unavailable Unavailable PROBLEMS Type Condition ICD9-CM Code [id number] Code Onset Dates Condition S tatus SNOMED Code Problem Attention deficit R41.840 Active 76 874665 Problem Chronic hepatitis C without hepatic coma B18.2 Active 584385347 Problem Cannabis abuse F12.10 Active 73621 009 Problem Bipolar disorder, in partial remission, most rec ent episode hypomanic F31.71 Active 305215863 Problem Attention deficit hyperactivity disorder (ADHD), combi luciano type F90.2 Active 43351776 Problem Bipolar 1 disorder F31.9 Active 3 15939902 Problem H/O laminectomy Z98.89 Active 1616 23106 Problem Other chronic pain G89.29 Active 8 9752631 Problem Anxiety disorder, unspecified type F41.9 Active 576540082 ALLERGIES No Information ENCOUNTERS Encounter Location Date Diagnosis [facility] [address] [facility] [id number] [address] [place] [address] Mar, [facility] [address] [facility] [id number] [address] [place] [address] Dec, Other chronic pain G89.29 an d Low back pain M54.5 [facility] [address] [facility] [id number] [address] [place] [address] October, [facility] [address] [facility] [id number] [address] [place] [address] October, [facility] [address] [facility] [id number] [address] [place] [address] October, [facility] [address] [facility] [id number] [address] [place] [address] October, Other chronic pain G89.29 an d Chronic hepatitis C without hepatic coma B18.2 [facility] [address] [id number] [address] [place] [address] Aug, Bipolar disorder, in partial remission, most recent episode hypomanic F31.71 ; Attention deficit hyperactivity disorder (ADHD), combined type F90.2 and Anxiety disorder, unspecified type F41.9 [facility] [address] [id number] [address] [place] [address] Aug, [facility] [address] [id number] [address] [place] [address] Aug, Bipolar disorder, in partial remission, most recent episode hypomanic F31.71 [facility] [address] [id number] [address] [place] [address] Aug, [facility] [address] [id number] [address] [place] [address] Aug, Bipolar disorder, in partial remission, most recent episode hypomanic F31.71 [facility] [address] [id number] [address] [place] [address] Aug, Bipolar disorder, in partial remission, most recent episode hypomanic F31.71 ; Attention deficit hyperactivity disorder (ADHD), combined type F90.2 and Anxiety disorder, unspecified type F41.9 [facility] [address] [id number] [address] [place] [address] Aug, Low back pain M54.5 and Pain in left wrist M25.532 [facility] [address] [id number] [address] [place] [address] Aug, [facility] [address] [id number] [address] [place] [address] Jun, [facility] [address] [facility] [id number] [address] [place] [address] Apr, Bipolar disorder, in partial remission, most recent episode hypomanic F31.71 [facility] [address] [id number] [address] [place] [address] Apr, [facility] [address] [id number] [address] [place] [address] Apr, Bipolar disorder, in partial remission, most recent episode hypomanic F31.71 ; Attention deficit hyperactivity disorder (ADHD), combined type F90.2 ; Anxiety disorder, unspecified type F41.9 and Other skilled nursing (current) 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 Z79.899 [facility] [address] [id number] [address] [place] [address] Apr, Bipolar disorder, in partial remission, most recent episode hypomanic F31.71 [facility] [address] [id number] [address] [place] [address] Apr, Bipolar disorder, in partial remission, most recent episode hypomanic F31.71 [facility] [address] [id number] [address] [place] [address] Mar, [facility] [address] [facility] [id number] [address] [place] [address] Mar, Bipolar disorder, in partial remission, most recent episode hypomanic F31.71 ; Encounter for immunization Z23 and Low back pain M54.5 [facility] [address] [id number] [address] [place] [address] Mar, Bipolar disorder, in partial remission, most recent episode hypomanic F31.71 [facility] [address] [id number] [address] [place] [address] Mar, Bipolar disorder, in partial remission, most recent episode hypomanic F31.71 [facility] [address] [id number] [address] [place] [address] Jan, Bipolar disorder, in partial remission, most recent episode hypomanic F31.71 [facility] [address] [facility] [id number] [address] [place] [address] Jan, Bipolar disorder, in partial remission, most recent episode hypomanic F31.71 [facility] [address] [facility] [id number] [address] [place] [address] Dec, Bipolar disorder, in partial remission, most recent episode hypomanic F31.71 [facility] [address] [id number] [address] [place] [address] Dec, Bipolar disorder, in partial remission, most recent episode hypomanic F31.71 ; Attention deficit hyperactivity disorder (ADHD), combined type F90.2 ; Anxiety disorder, unspecified type F41.9 and Other skilled nursing (current) 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 Z79.899 [facility] [address] [id number] [address] [place] [address] Dec, Bipolar disorder, in partial remission, most recent episode hypomanic F31.71 [facility] [address] [id number] [address] [place] [address] Dec, Bipolar disorder, in partial remission, most recent episode hypomanic F31.71 [facility] [address] [facility] [id number] [address] [place] [address] October, Bipolar disorder, in partial remission, most recent episode hypomanic F31.71 [facility] [address] [id number] [address] [place] [address] October, [facility] [address] [facility] [id number] [address] [place] [address] October, [facility] [address] [facility] [id number] [address] [place] [address] Oct, Bipolar disorder, in partial remission, most recent episode hypomanic F31.71 ; Attention deficit hyperactivity disorder (ADHD), combined type F90.2 ; Anxiety disorder, unspecified type F41.9 and Encounter for drug screening Z02.83 [facility] [address] [id number] [address] [place] [address] Oct, Bipolar disorder, in partial remission, most recent episode hypomanic F31.71 [facility] [address] [id number] [address] [place] [address] Oct, Bipolar disorder, in partial remission, most recent episode hypomanic F31.71 [facility] [address] [facility] [id number] [address] [place] [address] Aug, Bipolar disorder, in partial remission, most recent episode hypomanic F31.71 [facility] [address] [facility] [id number] [address] [place] [address] Aug, Bipolar disorder, in partial remission, most recent episode hypomanic F31.71 [facility] [address] [facility] [id number] [address] [place] [address] Aug, Bipolar disorder, in partial remission, most recent episode hypomanic F31.71 [facility] [address] [id number] [address] [place] [address] Jul, Bipolar disorder, in partial remission, most recent episode hypomanic F31.71 ; Attention deficit hyperactivity disorder (ADHD), combined type F90.2 and Anxiety disorder, unspecified type F41.9 [facility] [address] [facility] [id number] [address] [place] [address] Jul, Bipolar disorder, in partial remission, most recent episode hypomanic F31.71 [facility] [address] [facility] [id number] [address] [place] [address] Jun, Bipolar disorder, in partial remission, most recent episode hypomanic F31.71 [facility] [address] [facility] [id number] [address] [place] [address] May, Bipolar disorder, in partial remission, most recent episode hypomanic F31.71 [facility] [address] [facility] [id number] [address] [place] [address] May, Bipolar disorder, in partial remission, most recent episode hypomanic F31.71 [facility] [address] [facility] [id number] [address] [place] [address] Apr, [facility] [address] [facility] [id number] [address] [place] [address] Apr, Bipolar disorder, in partial remission, most recent episode hypomanic F31.71 ; Attention deficit hyperactivity disorder (ADHD), combined type F90.2 ; Anxiety disorder, unspecified type F41.9 and Cannabis abuse F12.10 [facility] [address] [id number] [address] [place] [phone] 13 Apr, 2017 Attention deficit hyperactiv ity disorder (ADHD), combined type F90.2 [facility] [address] [id number] [address] [place] [address] Mar, Attention deficit hyperactiv ity disorder (ADHD), combined type F90.2 [facility] [address] [id number] [address] [place] [phone] 14 Mar, 2017 Anxiety disorder, unspecifie d type F41.9 [facility] [address] [id number] [address] [place] [address] Jan, Attention deficit hyperactiv ity disorder (ADHD), combined type F90.2 [facility] [address] [facility] [id number] [address] [place] [phone] Jan, Anxiety disorder, unspecifie d type F41.9 [facility] [address] [facility] [id number] [address] [place] [address] Jan, Other chronic pain G89.29 ; Chronic hepatitis C without hepatic coma B18.2 and Bipolar 1 disorder F31.9 [facility] [address] [facility] [id number] [address] [place] [address] Dec, Attention deficit hyperactiv ity disorder (ADHD), combined type F90.2 [facility] [address] [facility] [id number] [address] [place] [address] Dec, Bipolar disorder, in partial remission, most recent episode hypomanic F31.71 ; Attention deficit hyperactivity disorder (ADHD), combined type F90.2 and Anxiety disorder, unspecified type F41.9 [facility] [address] [id number] [address] [place] [address] Dec, Bipolar disorder, in partial remission, most recent episode hypomanic F31.71 ; Attention deficit hyperactivity disorder (ADHD), combined type F90.2 and Anxiety disorder, unspecified type F41.9 [facility] [address] [place] [id number] [address] [place] [address] Dec, Bipolar 1 disorder F31.9 and Attention deficit R41.840 [facility] [address] [place] [id number] [address] [place] [address] Oct, Other chronic pain G89.29 ; Alopecia L65.9 and Screening, lipid Z13.220 [facility] [address] [place] [id number] [address] [place] [phone] Oct, [facility] [address] [place] [id number] [address] [place] [address] Aug, [facility] [address] [place] [id number] [place] [address] Aug, Eustachian tube dysfunction, right H69.81 ; Vertigo R42 and Other chronic pain G89.29 [facility] [address] [place] [id number] [address] [place] [address] Aug, [facility] [address] [place] [id number] [address] [place] [address] Jun, [facility] [address] [place] [id number] [address] [place] [address] Jun, Low back pain M54.5 and Othe r chronic pain G89.29 [facility] [address] [place] [id number] [address] [place] [address] Jun, [facility] [address] [place] [id number] [address] [place] [address] May, [facility] [address] [place] [id number] [address] [place] [address] Jan, [facility] [address] [place] [id number] [address] [place] [address] Dec, [facility] [address] [place] [id number] [address] [place] [address] Dec, [facility] [address] [facility] [id number] [address] [place] [address] Jun, [facility] [address] [place] [id number] [place] [address] Apr, Eustachian tube dysfunction, unspecified laterality H69.80 ; Hot flashes N95.1 and Encounter for immunization Z23 [facility] [address] [facility] [id number] [address] [place] [address] Jan, [facility] [address] [facility] [id number] [address] [place] [address] Jan, [facility] [address] [place] [id number] [place] [address] Jan, [facility] [address] [address] Jan, [facility] [address] [address] Jan, Encounter to establish care V65.8 ; Bipolar 1 disorder 296.7 ; Abdominal pain 789.00 ; Constipation 564.00 ; Hard of hearing 389.9 and Drug abuse 305.90 [facility] [address] [place] [id number] [address] [place] [address] Dec, [facility] [id number] [place] [address] October, [facility] [address] [place] [id number] [address] [place] [address] October, [facility] [address] [place] [id number] [address] [place] [address] Oct, [facility] [address] [place] [id number] [address] [place] [address] Oct, [facility] [address] [place] [id number] [address] [place] [address] Oct, [facility] [address] [id number] [address] [place] [address], [place] [address] Aug, 2014 [facility] [address] [id number] [address] [place] [address], [place] [address] Aug, 2014 [facility] [address] [id number] [address] [place] [address], [place] [address] Aug, 2014 [facility] [address] [id number] [address] [place] [address], [place] [address] Aug, 2014 [facility] [address] [id number] [address] [place] [address], [place] [address] Aug, 2014 [facility] [address] [id number] [address] [place] [address], [place] [address] Aug, 2014 [facility] [address] [id number] [address] [place] [address], [place] [address] Aug, 2014 [facility] [address] [id number] [address] [place] [address], [place] [address] Aug, 2014 [facility] [address] [id number] [address] [place] [address], [place] [address] Aug, 2014 [facility] [address] [id number] [address] [place] [address], [place] [address] Aug, 2014 [facility] [address] [id number] [address] [place] [address] Aug, 2014 [facility] [address] [id number] [address] [place] [address] Aug, 2014 [facility] [address] [id number] [address] [place] [address], [place] [address] Aug, 2014 [facility] [address] [id number] [address] [place] [address], [place] [address] Aug, 2014 [facility] [address] [id number] [address] [place] [address] Aug, 2014 [facility] [address] [id number] [address] [place] [address] Jul, [facility] [address] [id number] [address] [place] [address], [place] [address] Jul, [facility] [address] [id number] [address] [place] [address], [place] [address] Jul, [facility] [address] [id number] [address] [place] [address], [place] [address] Jul, [facility] [address] [id number] [address] [place] [address], [place] [address] Jul, [facility] [address] [id number] [address] [place] [address], [place] [address] Jul, [facility] [address] [id number] [address] [place] [address], [place] [address] Jul, [facility] [address] [id number] [address] [place] [address], [place] [address] Jul, [facility] [address] [id number] [address] [place] [address], [place] [address] Jun, [facility] [address] [id number] [address] [place] [address], [place] [address] Jun, [facility] [address] [id number] [address] [place] [address], [place] [address] Jun, [facility] [address] [id number] [address] [place] [address], [place] [address] Jun, [facility] [address] [id number] [address] [place] [address], [place] [address] 18 Jun, 2014 [facility] [address] [id number] [address] [place] [address], [place] [address] 15 Jun, 2014 [facility] [address] [id number] [address] [place] [address], [place] [address] Jun, [facility] [address] [id number] [address] [place] [address], [place] [address] Jun, [facility] [address] [id number] [address] [place] [address], [place] [address] Jun, [facility] [address] [id number] [address] [place] [address], [place] [address] Jun, [facility] [address] [id number] [address] [place] [address], [place] [address] Jun, [facility] [address] [id number] [address] [place] [address], [place] [address] May, [facility] [address] [id number] [address] [place] [address], [place] [address] May, [facility] [address] [id number] [address] [place] [address], [place] [address] May, [facility] [address] [id number] [address] [place] [address], [place] [address] May, [facility] [address] [id number] [address] [place] [address], [place] [address] May, [facility] [address] [id number] [address] [place] [address], [place] [address] May, [facility] [address] [id number] [address] [place] [address], [place] [address] May, [facility] [address] [id number] [address] [place] [address], [place] [address] Apr, [facility] [address] [id number] [address] [place] [address], [place] [address] Apr, [facility] [address] [id number] [address] [place] [address], [place] [address] Apr, [facility] [address] [id number] [address] [place] [address], [place] [address] Apr, [facility] [address] [id number] [address] [place] [address], [place] [address] Apr, [facility] [address] [id number] [address] [place] [address], [place] [address] Apr, [facility] [address] [id number] [address] [place] [address], [place] [address] Mar, [facility] [address] [id number] [address] [place] [address], [place] [address] Mar, [facility] [address] [id number] [address] [place] [address], [place] [address] Mar, [facility] [address] [id number] [address] [place] [address], [place] [address] Mar, [facility] [address] [id number] [address] [place] [address], [place] [address] Mar, [facility] [address] [id number] [address] [place] [address], [place] [address] Mar, [facility] [address] [id number] [address] [place] [address], [place] [address] Jan, [facility] [address] [id number] [address] [place] [address], [place] [address] Jan, [facility] [address] [id number] [address] [place] [address], [place] [address] Jan, [facility] [address] [id number] [address] [place] [address], [place] [address] Jan, [facility] [address] [id number] [address] [place] [address], [place] [address] Dec, [facility] [address] [id number] [address] [place] [address], [place] [address] Dec, [facility] [address] [id number] [address] [place] [address], [place] [address] Dec, [facility] [address] [id number] [address] [place] [address], [place] [address] Dec, [facility] [address] [id number] [address] [place] [address], [place] [address] Dec, [facility] [address] [id number] [address] [place] [address], [place] [address] Dec, [facility] [address] [id number] [address] [place] [address], [place] [address] Dec, [facility] [address] [id number] [address] [place] [address], [place] [address] Dec, [facility] [address] [id number] [address] [place] [address], [place] [address] Dec, [facility] [address] [id number] [address] [place] [address], [place] [address] Dec, [facility] [address] [id number] [address] [place] [address], [place] [address] Dec, [facility] [address] [id number] [address] [place] [address], [place] [address] Dec, [facility] [address] [id number] [address] [place] [address], [place] [address] October, [facility] [address] [id number] [address] [place] [address], [place] [address] October, [facility] [address] [id number] [address] [place] [address], [place] [address] October, [facility] [address] [id number] [address] [place] [address], [place] [address] October, [facility] [address] [id number] [address] [place] [address], [place] [address] October, [facility] [address] [id number] [address] [place] [address], [place] [address] October, [facility] [address] [id number] [address] [place] [address], [place] [address] Oct, [facility] [address] [id number] [address] [place] [address], [place] [address] Oct, [facility] [address] [id number] [address] [place] [address], [place] [address] Oct, [facility] [address] [id number] [facility] [address] Oct, [facility] [address] [id number] [facility] [address] Oct, [facility] [address] [id number] [facility] [address] Oct, [facility] [address] [id number] [facility] [place] [address] Oct, [facility] [address] [id number] [facility] [address] Oct, [facility] [address] [id number] [address] [place] [address], [place] [address] Oct, [facility] [address] [id number] [address] [place] [address], [place] [address] Oct, [facility] [address] [id number] [address] [place] [address], [place] [address] Oct, [facility] [address] [id number] [address] [place] [address], [place] [address] Oct, [facility] [address] [id number] [address] [place] [address], [place] [address] Aug, [facility] [address] [id number] [address] [place] [address], [place] [address] 15 Aug, 2013 [facility] [address] [id number] [address] [place] [address], [place] [address] Aug, [facility] [address] [id number] [address] [place] [address], [place] [address] Aug, [facility] [address] [id number] [address] [place] [address], [place] [address] 05 Aug, 2013 [facility] [address] [id number] [address] [place] [address], [place] [address] 05 Aug, 2013 [facility] [address] [id number] [address] [place] [address], [place] [address] Aug, [facility] [address] [id number] [address] [place] [address], [place] [address] Aug, [facility] [address] [id number] [address] [place] [address], [place] [address] Aug, [facility] [address] [id number] [address] [place] [address], [place] [address] Aug, [facility] [address] [id number] [address] [place] [address], [place] [address] Aug, [facility] [address] [id number] [address] [place] [address], [place] [address] Aug, [facility] [address] [id number] [address] [place] [address], [place] [address] Aug, [facility] [address] [id number] [address] [place] [address], [place] [address] 20 Aug, 2013 [facility] [address] [id number] [address] [place] [address], [place] [address] 14 Aug, 2013 [facility] [address] [id number] [address] [place] [address], [place] [address] Aug, [facility] [address] [id number] [address] [place] [address], [place] [address] 14 Aug, 2013 [facility] [address] [id number] [address] [place] [address], [place] [address] 14 Aug, 2013 [facility] [address] [id number] [address] [place] [address], [place] [address] 07 Aug, 2013 [facility] [address] [id number] [address] [place] [address], [place] [address] 07 Aug, 2013 [facility] [address] [id number] [address] [place] [address], [place] [address] 06 Aug, 2013 [facility] [address] [id number] [address] [place] [address], [place] [address] Aug, [facility] [address] [id number] [address] [place] [address], [place] [address] Aug, [facility] [address] [id number] [address] [place] [address], [place] [address] Aug, [facility] [address] [id number] [address] [place] [address], [place] [address] Aug, [facility] [address] [id number] [address] [place] [address], [place] [address] Jul, [facility] [address] [id number] [address] [place] [address], [place] [address] Jul, [facility] [address] [id number] [address] [place] [address], [place] [address] Jul, [facility] [address] [id number] [address] [place] [address], [place] [address] Jul, [facility] [address] [id number] [address] [place] [address], [place] [address] Jul, [facility] [address] [id number] [address] [place] [address], [place] [address] Jul, [facility] [address] [id number] [address] [place] [address], [place] [address] Jul, [facility] [address] [id number] [address] [place] [address], [place] [address] Jul, [facility] [address] [id number] [address] [place] [address], [place] [address] Jul, [facility] [address] [id number] [address] [place] [address], [place] [address] Jul, [facility] [address] [id number] [address] [place] [address], [place] [address] Jul, [facility] [address] [id number] [address] [place] [address], [place] [address] Jul, [facility] [address] [id number] [address] [place] [address] Jul, [facility] [address] [id number] [address] [place] [address], [place] [address] Jul, [facility] [address] [id number] [address] [place] [address], [place] [address] Jul, [facility] [address] [id number] [address] [place] [address], [place] [address] Jul, [facility] [address] [id number] [address] [place] [address], [place] [address] Jul, [facility] [address] [id number] [address] [place] [address], [place] [address] Jul, [facility] [address] [id number] [address] [place] [address], [place] [address] Jul, [facility] [address] [id number] [address] [place] [address], [place] [address] Jul, [facility] [address] [id number] [address] [place] [address], [place] [address] Jun, [facility] [address] [id number] [address] [place] [address], [place] [address] Jun, [facility] [address] [id number] [address] [place] [address], [place] [address] Jun, [facility] [address] [id number] [address] [place] [address], [place] [address] Jun, [facility] [address] [id number] [address] [place] [address], [place] [address] Jun, [facility] [address] [id number] [address] [place] [address], [place] [address] Jun, [facility] [address] [id number] [address] [place] [address], [place] [address] Jun, [facility] [address] [id number] [address] [place] [address], [place] [address] Jun, [facility] [address] [id number] [address] [place] [address], [place] [address] 24 Jun, 2013 [facility] [address] [id number] [address] [place] [address], [place] [address] Jun, [facility] [address] [id number] [address] [place] [address], [place] [address] Jun, [facility] [address] [id number] [address] [place] [address], [place] [address] Jun, [facility] [address] [id number] [address] [place] [address], [place] [address] Jun, [facility] [address] [id number] [address] [place] [address], [place] [address] Jun, [facility] [address] [id number] [address] [place] [address], [place] [address] Jun, [facility] [address] [id number] [address] [place] [address], [place] [address] Jun, [facility] [address] [id number] [address] [place] [address], [place] [address] 18 Jun, 2013 [facility] [address] [id number] [address] [place] [address], [place] [address] 17 Jun, 2013 [facility] [address] [id number] [address] [place] [address], [place] [address] 17 Jun, 2013 [facility] [address] [id number] [address] [place] [address], [place] [address] 13 Jun, 2013 [facility] [address] [id number] [address] [place] [address], [place] [address] 12 Jun, 2013 [facility] [address] [id number] [address] [place] [address], [place] [address] Jun, [facility] [address] [id number] [address] [place] [address], [place] [address] 09 Jun, 2013 [facility] [address] [id number] [address] [place] [address] [address] Jun, [facility] [address] [id number] [address] [place] [address], [place] [address] Jun, [facility] [address] [id number] [address] [place] [address], [place] [address] Jun, [facility] [address] [id number] [address] [place] [address], [place] [address] Jun, [facility] [address] [id number] [address] [place] [address], [place] [address] May, [facility] [address] [id number] [address] [place] [address], [place] [address] May, [facility] [address] [id number] [address] [place] [address] May, [facility] [address] [id number] [address] [place] [address], [place] [address] May, [facility] [address] [id number] [address] [place] [address] May, [facility] [address] [id number] [address] [place] [address] May, [facility] [address] [id number] [address] [place] [address] Apr, [facility] [address] [id number] [address] [place] [address] 30 Apr, 2013 [facility] [address] [id number] [address] [place] [address] 30 Apr, 2013 [facility] [address] [id number] [address] [place] [address] 30 Apr, 2013 [facility] [address] [id number] [address] [place] [address] Apr, [facility] [address] [id number] [address] [place] [address] 15 Apr, 2013 [facility] [address] [id number] [address] [place] [address], [place] [address] 15 Apr, 2013 [facility] [address] [id number] [address] [place] [address], [place] [address] 01 Apr, 2013 [facility] [address] [id number] [address] [place] [address], [place] [address] 26 Mar, 2012 [facility] [address] [id number] [address] [place] [address], [place] [address] 24 Mar, 2012 [facility] [address] [id number] [address] [place] [address], [place] [address] 17 Mar, 2012 [facility] [address] [id number] [address] [place] [address], [place] [address] 17 Mar, 2012 [facility] [address] [id number] [address] [place] [address], [place] [address] 11 Mar, 2013 [facility] [address] [id number] [address] [place] [address], [place] [address] 10 Mar, 2012 [facility] [address] [id number] [address] [place] [address], [place] [address] 05 Mar, 2013 [facility] [address] [id number] [address] [place] [address], [place] [address] 04 Mar, 2013 [facility] [address] [id number] [address] [place] [address], [place] [address] 20 Jan, 2013 [facility] [address] [id number] [address] [place] [address], [place] [address] Jan, [facility] [address] [id number] [address] [place] [address], [place] [address] 14 Jan, 2013 [facility] [address] [id number] [address] [place] [address], [place] [address] 12 Jan, 2013 [facility] [address] [id number] [address] [place] [address], [place] [address] Jan, [facility] [address] [id number] [address] [place] [address], [place] [address] Jan, [facility] [address] [id number] [address] [place] [address], [place] [address] 31 Dec, 2012 [facility] [address] [id number] [address] [place] [address], [place] [address] 24 Dec, 2012 [facility] [address] [id number] [address] [place] [address], [place] [address] Dec, [facility] [address] [id number] [address] [place] [address], [place] [address] Dec, [facility] [address] [id number] [address] [place] [address], [place] [address] 18 Dec, 2012 [facility] [address] [id number] [address] [place] [address], [place] [address] 17 Dec, 2012 [facility] [address] [id number] [address] [place] [address], [place] [address] 16 Dec, 2012 [facility] [address] [id number] [address] [place] [address], [place] [address] 16 Dec, 2012 [facility] [address] [id number] [address] [place] [address], [place] [address] 15 Dec, 2012 [facility] [address] [id number] [address] [place] [address], [place] [address] Dec, [facility] [address] [id number] [address] [place] [address], [place] [address] Dec, [facility] [address] [id number] [address] [place] [address], [place] [address] Dec, [facility] [address] [id number] [address] [place] [address], [place] [address] Dec, [facility] [address] [id number] [address] [place] [address], [place] [address] 17 Dec, 2012 [facility] [address] [id number] [address] [place] [address], [place] [address] 13 Dec, 2012 [facility] [address] [id number] [address] [place] [address], [place] [address] Dec, [facility] [address] [id number] [address] [place] [address], [place] [address] October, [facility] [address] [id number] [address] [place] [address], [place] [address] October, [facility] [address] [id number] [address] [place] [address], [place] [address] October, [facility] [address] [id number] [address] [place] [address], [place] [address] October, [facility] [address] [id number] [address] [place] [address], [place] [address] October, [facility] [address] [id number] [address] [place] [address], [place] [address] October, [facility] [address] [id number] [address] [place] [address], [place] [address] October, [facility] [address] [id number] [address] [place] [address], [place] [address] Oct, [facility] [address] [id number] [address] [place] [address], [place] [address] Oct, [facility] [address] [id number] [address] [place] [address], [place] [address] Oct, [facility] [address] [id number] [address] [place] [address], [place] [address] Oct, [facility] [address] [id number] [address] [place] [address], [place] [address] Oct, [facility] [address] [id number] [address] [place] [address], [place] [address] 18 Oct, 2012 [facility] [address] [id number] [address] [place] [address], [place] [address] 17 Oct, 2012 [facility] [address] [id number] [address] [place] [address], [place] [address] 15 Oct, 2012 [facility] [address] [id number] [address] [place] [address], [place] [address] Oct, [facility] [address] [id number] [address] [place] [address], [place] [address] Oct, [facility] [address] [id number] [address] [place] [address], [place] [address] Oct, [facility] [address] [id number] [address] [place] [address], [place] [address] Oct, [facility] [address] [id number] [address] [place] [address], [place] [address] Aug, [facility] [address] [id number] [address] [place] [address], [place] [address] Aug, [facility] [address] [id number] [address] [place] [address], [place] [address] Aug, [facility] [address] [id number] [address] [place] [address], [place] [address] Aug, [facility] [address] [id number] [address] [place] [address], [place] [address] Aug, [facility] [address] [id number] [address] [place] [address], [place] [address] Aug, [facility] [address] [id number] [address] [place] [address], [place] [address] Aug, [facility] [address] [id number] [address] [place] [address], [place] [address] 14 Aug, 2012 [facility] [address] [id number] [address] [place] [address], [place] [address] Aug, [facility] [address] [id number] [address] [place] [address], [place] [address] Aug, [facility] [address] [id number] [address] [place] [address], [place] [address] 29 Jul, 2012 [facility] [address] [id number] [address] [place] [address] [address] 15 Jul, 2012 [facility] [address] [id number] [address] [place] [address], [place] [address] 08 Jul, 2012 [facility] [address] [id number] [address] [place] [address], [place] [address] 20 Jun, 2012 [facility] [address] [id number] [address] [place] [address], [place] [address] 18 Jun, 2012 [facility] [address] [id number] [address] [place] [address], [place] [address] 18 Jun, 2012 [facility] [address] [id number] [address] [place] [address], [place] [address] 18 Jun, 2012 [facility] [address] [id number] [address] [place] [address], [place] [address] 18 Jun, 2012 [facility] [address] [id number] [address] [place] [address], [place] [address] 14 Jun, 2012 [facility] [address] [id number] [address] [place] [address], [place] [address] 14 Jun, 2012 [facility] [address] [id number] [address] [place] [address], [place] [address] 13 Jun, 2012 [facility] [address] [id number] [address] [place] [address], [place] [address] 13 Jun, 2012 [facility] [address] [id number] [address] [place] [address], [place] [address] 11 Jun, 2012 [facility] [address] [id number] [address] [place] [address], [place] [address] 11 Jun, 2012 [facility] [address] [id number] [address] [place] [address], [place] [address] 11 Jun, 2012 [facility] [address] [id number] [address] [place] [address], [place] [address] 11 Jun, 2012 [facility] [address] [id number] [address] [place] [address], [place] [address] 07 Jun, 2012 [facility] [address] [id number] [address] [place] [address], [place] [address] 07 Jun, 2012 [facility] [address] [id number] [address] [place] [address], [place] [address] Jun, [facility] [address] [id number] [address] [place] [address], [place] [address] Jun, [facility] [address] [id number] [address] [place] [address], [place] [address] Jun, [facility] [address] [id number] [address] [place] [address], [place] [address] Jun, [facility] [address] [id number] [address] [place] [address], [place] [address] Jun, [facility] [address] [id number] [address] [place] [address], [place] [address] Jun, [facility] [address] [id number] [address] [place] [address], [place] [address] Jun, [facility] [address] [id number] [address] [place] [address], [place] [address] Jun, [facility] [address] [id number] [address] [place] [address], [place] [address] May, [facility] [address] [id number] [address] [place] [address], [place] [address] May, [facility] [address] [id number] [address] [place] [address], [place] [address] May, [facility] [address] [id number] [address] [place] [address], [place] [address] May, [facility] [address] [id number] [address] [place] [address], [place] [address] May, [facility] [address] [id number] [address] [place] [address], [place] [address] May, [facility] [address] [id number] [address] [place] [address], [place] [address] May, [facility] [address] [id number] [address] [place] [address], [place] [address] May, [facility] [address] [id number] [address] [place] [address], [place] [address] Apr, [facility] [address] [id number] [address] [place] [address], [place] [address] Apr, [facility] [address] [id number] [address] [place] [address], [place] [address] Apr, [facility] [address] [id number] [address] [place] [address], [place] [address] Apr, [facility] [address] [id number] [address] [place] [address], [place] [address] Apr, [facility] [address] [id number] [address] [place] [address], [place] [address] Apr, [facility] [address] [id number] [address] [place] [address], [place] [address] Apr, [facility] [address] [id number] [address] [place] [address], [place] [address] Apr, [facility] [address] [id number] [address] [place] [address], [place] [address] Apr, [facility] [address] [id number] [address] [place] [address], [place] [address] Apr, [facility] [address] [id number] [address] [place] [address], [place] [address] Apr, [facility] [address] [id number] [address] [place] [address], [place] [address] Apr, [facility] [address] [id number] [address] [place] [address], [place] [address] Mar, [facility] [address] [id number] [address] [place] [address], [place] [address] 18 Mar, 2012 [facility] [address] [id number] [address] [place] [address] Mar, [facility] [address] [id number] [address] [place] [address] Mar, [facility] [address] [address] [id number] [address] [place] [address] [id number] Mar, [facility] [address] [id number] [address] [place] [address] [id number] Mar, [facility] [address] [id number] [address] [place] [id number] Mar, [facility] [address] [id number] [address] [place] [address], [place] [address] Jan, [facility] [address] [id number] [address] [place] [id number] Jan, [facility] [address] [id number] [address] [place] [address] [id number] Jan, [facility] [address] [id number] [address] [place] [address] [id number] Jan, [facility] [address] [id number] [address] [place] [address], [place] [address] Jan, [facility] [address] [id number] [address] [place] [id number] Jan, [facility] [address] [id number] [address] [place] [id number] Jan, [facility] [address] [id number] [address] [place] [phone] Jan, [facility] [address] [id number] [address] [place] [address], [place] [address] Jan, [facility] [address] [id number] [address] [place] [address], [place] [address] Jan, [facility] [address] [id number] [address] [place] [phone] Jan, [facility] [address] [id number] [facility] [address] 28 Jan, 2012 [facility] [address] [id number] [address] [place] [address], [place] [address] 27 Jan, 2012 [facility] [address] [id number] [address] [place] [address], [place] [address] 26 Jan, 2012 [facility] [address] [id number] [address] [place] [address], [place] [address] 26 Dec, 2011 [facility] [address] [id number] [address] [place] [address], [place] [address] 20 Jan, 2012 [facility] [address] [id number] [address] [place] [address], [place] [address] 19 Jan, 2012 [facility] [address] [id number] [address] [place] [address], [place] [address] 18 Jan, 2012 [facility] [address] [id number] [address] [place] [address], [place] [address] 17 Jan, 2012 [facility] [address] [id number] [address] [place] [address], [place] [id number] 16 Jan, 2012 [facility] [address] [id number] [address] [place] [address], [place] [address] Dec, [facility] [address] [id number] [address] [place] [address], [place] [address] 13 Jan, 2012 [facility] [address] [id number] [address] [place] [address], [place] [address] 02 Jan, 2012 [facility] [address] [id number] [address] [place] [address], [place] [address] Dec, [facility] [address] [id number] [address] [place] [address], [place] [address] Dec, [facility] [address] [id number] [address] [place] [address], [place] [address] Dec, [facility] [address] [id number] [address] [place] [address], [place] [address] Dec, [facility] [address] [id number] [address] [place] [address], [place] [address] Dec, [facility] [address] [id number] [address] [place] [address], [place] [address] Dec, [facility] [address] [id number] [address] [place] [address], [place] [address] Dec, [facility] [address] [id number] [address] [place] [address], [place] [address] October, [facility] [address] [id number] [address] [place] [address], [place] [address] October, [facility] [address] [id number] [address] [place] [address], [place] [address] October, [facility] [address] [id number] [address] [place] [address], [place] [address] October, [facility] [address] [id number] [address] [place] [address], [place] [address] October, [facility] [address] [id number] [address] [place] [address], [place] [address] October, [facility] [address] [id number] [address] [place] [address], [place] [address] Oct, [facility] [address] [id number] [address] [place] [address], [place] [address] Oct, [facility] [address] [id number] [address] [place] [address], [place] [address] Oct, [facility] [address] [id number] [address] [place] [address], [place] [address] Oct, [facility] [address] [id number] [address] [place] [address], [place] [address] Oct, [facility] [address] [id number] [address] [place] [address], [place] [address] Oct, [facility] [address] [id number] [address] [place] [address], [place] [address] 02 Oct, 2011 [facility] [address] [id number] [address] [place] [address], [place] [address] 29 Sep, 2011 [facility] [address] [id number] [address] [place] [address], [place] [address] 29 Sep, 2011 [facility] [address] [id number] [address] [place] [address], [place] [address] 19 Sep, 2011 [facility] [address] [id number] [address] [place] [address], [place] [address] 13 Sep, 2011 [facility] [address] [id number] [address] [place] [address], [place] [address] 05 Sep, 2011 [facility] [address] [id number] [address] [place] [address], [place] [address] 05 Sep, 2011 [facility] [address] [id number] [address] [place] [address], [place] [address] 27 Aug, 2011 [facility] [address] [id number] [address] [place] [address], [place] [address] Aug, [facility] [address] [id number] [address] [place] [address], [place] [address] 08 Aug, 2011 [facility] [address] [id number] [address] [place] [address], [place] [address] Jul, [facility] [address] [id number] [address] [place] [address], [place] [address] Jul, [facility] [address] [id number] [address] [place] [address], [place] [address] Jul, [facility] [address] [id number] [address] [place] [address], [place] [address] 10 Jul, 2011 [facility] [address] [id number] [address] [place] [address], [place] [address] 28 Jun, 2011 [facility] [address] [id number] [address] [place] [address], [place] [address] Jun, [facility] [address] [id number] [address] [place] [address], [place] [address] May, [facility] [address] [id number] [address] [place] [address], [place] [address] May, [facility] [address] [id number] [address] [place] [address], [place] [address] May, [facility] [address] [id number] [address] [place] [address], [place] [address] May, [facility] [address] [id number] [address] [place] [address], [place] [address] May, [facility] [address] [id number] [address] [place] [address], [place] [address] Apr, [facility] [address] [id number] [address] [place] [address], [place] [address] Apr, [facility] [address] [id number] [address] [place] [address], [place] [address] Apr, [facility] [address] [id number] [address] [place] [address], [place] [address] Jan, [facility] [address] [id number] [address] [place] [address], [place] [address] Dec, [facility] [address] [id number] [address] [place] [address], [place] [address] October, [facility] [address] [id number] [address] [place] [address], [place] [address] Jun, [facility] [address] [id number] [address] [place] [address], [place] [address] 23 Apr, 2009 [facility] [address] [id number] [address] [place] [address], [place] [address] Apr, [facility] [address] [id number] [address] [place] [address], [place] [address] Apr, [facility] [address] [id number] [address] [place] [address], [place] [address] Jun, IMMUNIZATIONS No Known Immunizations SOCIAL HISTORY [...]
--- OUTSIDE RECORDS SUMMARY | 2020-01-25 12:38 | XMS REPORT ---
Author Author Ana Iraheta Organization [facility] Address [address] [place] [address] Care Team Providers Care [employer] Name Role Phone MELISA Iraheta Unavailable PROBLEMS Type Condition ICD9-CM Code ZIF34-CC Code Onset Dates Condition S tatus SNOMED Code Problem Attention deficit R41.840 Active 76 562195 Problem Chronic hepatitis C without hepatic coma B18.2 Active 236104535 Problem Cannabis abuse F12.10 Active 49454 009 Problem Bipolar disorder, in partial remission, most rec ent episode hypomanic F31.71 Active 247373059 Problem Attention deficit hyperactivity disorder (ADHD), combi luciano type F90.2 Active 26003230 Problem Bipolar 1 disorder F31.9 Active 3 03938125 Problem H/O laminectomy Z98.89 Active 1616 66884 Problem Other chronic pain G89.29 Active 8 6771258 Problem Anxiety disorder, unspecified type F41.9 Active 237698622 ALLERGIES No Information ENCOUNTERS Encounter Location Date Diagnosis [place] [id number] [facility] [id number] [address] [place] [address] Dec, Other chronic pain G89.29 an d Low back pain M54.5 [facility] [address] [facility] [id number] [address] [place] [address] October, [facility] [address] [facility] [id number] [address] [place] [address] October, [facility] [address] [facility] [id number] [address] [place] [address] October, [facility] [address] [facility] [id number] [address] [place] [address] October, Other chronic pain G89.29 an d Chronic hepatitis C without hepatic coma B18.2 [facility] [address] [id number] [address] [place] [address] Aug, Bipolar disorder, in partial remission, most recent episode hypomanic F31.71 ; Attention deficit hyperactivity disorder (ADHD), combined type F90.2 and Anxiety disorder, unspecified type F41.9 [facility] [address] [id number] [address] [place] [address] Aug, [facility] [address] [id number] [address] [place] [address] Aug, Bipolar disorder, in partial remission, most recent episode hypomanic F31.71 [facility] [address] [id number] [address] [place] [address] Aug, [facility] [address] [id number] [address] [place] [address] Aug, Bipolar disorder, in partial remission, most recent episode hypomanic F31.71 [facility] [address] [id number] [address] [place] [address] Aug, Bipolar disorder, in partial remission, most recent episode hypomanic F31.71 ; Attention deficit hyperactivity disorder (ADHD), combined type F90.2 and Anxiety disorder, unspecified type F41.9 [facility] [address] [id number] [address] [place] [address] Aug, Low back pain M54.5 and Pain in left wrist M25.532 [facility] [address] [id number] [address] [place] [address] Aug, [facility] [address] [id number] [address] [place] [address] Jun, [facility] [address] [id number] [address] [place] [address] Apr, Bipolar disorder, in partial remission, most recent episode hypomanic F31.71 [facility] [address] [id number] [address] [place] [address] Apr, [facility] [address] [id number] [address] [place] [address] Apr, Bipolar disorder, in partial remission, most recent episode hypomanic F31.71 ; Attention deficit hyperactivity disorder (ADHD), combined type F90.2 ; Anxiety disorder, unspecified type F41.9 and Other detention (current) 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 Z79.899 [facility] [address] [id number] [address] [place] [address] Apr, Bipolar disorder, in partial remission, most recent episode hypomanic F31.71 [facility] [address] [id number] [address] [place] [address] Apr, Bipolar disorder, in partial remission, most recent episode hypomanic F31.71 [facility] [address] [id number] [address] [place] [address] Mar, [facility] [address] [id number] [address] [place] [address] Mar, Bipolar disorder, in partial remission, most recent episode hypomanic F31.71 ; Encounter for immunization Z23 and Low back pain M54.5 [facility] [address] [id number] [address] [place] [address] Mar, Bipolar disorder, in partial remission, most recent episode hypomanic F31.71 [facility] [address] [id number] [address] [place] [address] Mar, Bipolar disorder, in partial remission, most recent episode hypomanic F31.71 [facility] [address] [id number] [address] [place] [address] Jan, Bipolar disorder, in partial remission, most recent episode hypomanic F31.71 [facility] [address] [id number] [address] [place] [address] Jan, Bipolar disorder, in partial remission, most recent episode hypomanic F31.71 [facility] [address] [id number] [address] [place] [address] Dec, Bipolar disorder, in partial remission, most recent episode hypomanic F31.71 [facility] [address] [id number] [address] [place] [address] Dec, Bipolar disorder, in partial remission, most recent episode hypomanic F31.71 ; Attention deficit hyperactivity disorder (ADHD), combined type F90.2 ; Anxiety disorder, unspecified type F41.9 and 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 [facility] [address] [id number] [address] [place] [address] Dec, Bipolar disorder, in partial remission, most recent episode hypomanic F31.71 [facility] [address] [id number] [address] [place] [address] Dec, Bipolar disorder, in partial remission, most recent episode hypomanic F31.71 [facility] [address] [id number] [address] [place] [address] October, Bipolar disorder, in partial remission, most recent episode hypomanic F31.71 [facility] [address] [id number] [address] [place] [address] October, [facility] [address] [id number] [address] [place] [address] October, [facility] [address] [id number] [address] [place] [address] Oct, Bipolar disorder, in partial remission, most recent episode hypomanic F31.71 ; Attention deficit hyperactivity disorder (ADHD), combined type F90.2 ; Anxiety disorder, unspecified type F41.9 and Encounter for drug screening Z02.83 [facility] [address] [id number] [address] [place] [address] Oct, Bipolar disorder, in partial remission, most recent episode hypomanic F31.71 [facility] [address] [id number] [address] [place] [address] Oct, Bipolar disorder, in partial remission, most recent episode hypomanic F31.71 [facility] [address] [id number] [address] [place] [address] Aug, Bipolar disorder, in partial remission, most recent episode hypomanic F31.71 [facility] [address] [id number] [address] [place] [address] 15 Aug, 2017 Bipolar disorder, in partial remission, most recent episode hypomanic F31.71 [facility] [address] [id number] [address] [place] [address] Aug, Bipolar disorder, in partial remission, most recent episode hypomanic F31.71 [facility] [address] [id number] [address] [place] [address] Jul, Bipolar disorder, in partial remission, most recent episode hypomanic F31.71 ; Attention deficit hyperactivity disorder (ADHD), combined type F90.2 and Anxiety disorder, unspecified type F41.9 [facility] [address] [facility] [id number] [address] [place] [address] Jul, Bipolar disorder, in partial remission, most recent episode hypomanic F31.71 [facility] [address] [facility] [id number] [address] [place] [address] Jun, Bipolar disorder, in partial remission, most recent episode hypomanic F31.71 [facility] [address] [id number] [address] [place] [address] May, Bipolar disorder, in partial remission, most recent episode hypomanic F31.71 [facility] [address] [facility] [id number] [address] [place] [address] May, Bipolar disorder, in partial remission, most recent episode hypomanic F31.71 [facility] [address] [facility] [id number] [address] [place] [address] Apr, [facility] [address] [facility] [id number] [address] [place] [address] Apr, Bipolar disorder, in partial remission, most recent episode hypomanic F31.71 ; Attention deficit hyperactivity disorder (ADHD), combined type F90.2 ; Anxiety disorder, unspecified type F41.9 and Cannabis abuse F12.10 [facility] [address] [id number] [address] [place] [address] 13 Apr, 2017 Attention deficit hyperactiv ity disorder (ADHD), combined type F90.2 [facility] [address] [id number] [address] [place] [address] Mar, Attention deficit hyperactiv ity disorder (ADHD), combined type F90.2 [facility] [address] [id number] [address] [place] [address] 14 Mar, 2017 Anxiety disorder, unspecifie d type F41.9 [facility] [address] [id number] [address] [place] [address] 18 Jan, 2017 Attention deficit hyperactiv ity disorder (ADHD), combined type F90.2 [facility] [address] [facility] [id number] [address] [place] [address] Jan, Anxiety disorder, unspecifie d type F41.9 [facility] [address] [facility] [id number] [address] [place] [address] Jan, Other chronic pain G89.29 ; Chronic hepatitis C without hepatic coma B18.2 and Bipolar 1 disorder F31.9 [facility] [address] [facility] [id number] [address] [place] [address] Dec, Attention deficit hyperactiv ity disorder (ADHD), combined type F90.2 [facility] [address] [facility] [id number] [address] [place] [address] 24 Dec, 2016 Bipolar disorder, in partial remission, most recent episode hypomanic F31.71 ; Attention deficit hyperactivity disorder (ADHD), combined type F90.2 and Anxiety disorder, unspecified type F41.9 [facility] [address] [facility] [id number] [address] [place] [address] Dec, Bipolar disorder, in partial remission, most recent episode hypomanic F31.71 ; Attention deficit hyperactivity disorder (ADHD), combined type F90.2 and Anxiety disorder, unspecified type F41.9 [facility] [address] [id number] [address] [place] [address] Dec, Bipolar 1 disorder F31.9 and Attention deficit R41.840 [facility] [address] [facility] [id number] [address] [place] [address] Oct, Other chronic pain G89.29 ; Alopecia L65.9 and Screening, lipid Z13.220 [facility] [address] [place] [id number] [address] [place] [address] Oct, [facility] [address] [place] [id number] [address] [place] [address] Aug, [facility] [address] [place] [id number] [address] [place] [address] Aug, Eustachian tube dysfunction, right H69.81 ; Vertigo R42 and Other chronic pain G89.29 [facility] [address] [place] [id number] [address] [place] [address] Aug, [facility] [address] [place] [id number] [address] [place] [address] Jun, [facility] [address] [place] [id number] [address] [place] [address] Jun, Low back pain M54.5 and Othe r chronic pain G89.29 [facility] [address] [place] [id number] [address] [place] [address] Jun, [facility] [address] [facility] [id number] [address] [place] [address] May, [facility] [address] [place] [id number] [address] [place] [address] Jan, [facility] [address] [place] [id number] [address] [place] [address] Dec, [facility] [address] [place] [id number] [address] [place] [address] Dec, [facility] [address] [facility] [id number] [address] [place] [address] Jun, [facility] [address] [facility] [id number] [address] [place] [address] Apr, Eustachian tube dysfunction, unspecified laterality H69.80 ; Hot flashes N95.1 and Encounter for immunization Z23 [facility] [address] [facility] [id number] [address] [place] [address] Jan, [facility] [address] [facility] [id number] [address] [place] [address] Jan, [facility] [address] [facility] [id number] [address] [place] [address] Jan, [facility] [address] [place] [id number] [address] [place] [address] Jan, [facility] [address] [place] [id number] [place] [address] Jan, Encounter to establish care V65.8 ; Bipolar 1 disorder 296.7 ; Abdominal pain 789.00 ; Constipation 564.00 ; Hard of hearing 389.9 and Drug abuse 305.90 [facility] [address] [facility] [id number] [address] [place] [address] Dec, [facility] [address] [facility] [id number] [address] [place] [address] October, [facility] [address] [facility] [id number] [address] [place] [address] October, [facility] [address] [facility] [id number] [address] [place] [address] Oct, [facility] [address] [facility] [id number] [address] [place] [address] Oct, [facility] [address] [facility] [id number] [address] [place] [address] Oct, [facility] [address] [id number] [address] [place] [address], [place] [address] Aug, [facility] [address] [id number] [address] [place] [address], [place] [address] Aug, 2014 [facility] [address] [id number] [address] [place] [address], [place] [address] Aug, 2014 [facility] [address] [id number] [address] [place] [address], [place] [address] Aug, 2014 [facility] [address] [id number] [address] [place] [address], [place] [address] Aug, 2014 [facility] [address] [id number] [address] [place] [address], [place] [address] Aug, 2014 [facility] [address] [id number] [address] [place] [address], [place] [address] Aug, 2014 [facility] [address] [id number] [address] [place] [address], [place] [address] Aug, 2014 [facility] [address] [id number] [address] [place] [address], [place] [address] Aug, 2014 [facility] [address] [id number] [address] [place] [address], [place] [address] Aug, 2014 [facility] [address] [id number] [address] [place] [address], [place] [address] Aug, 2014 [facility] [address] [id number] [address] [place] [address], [place] [address] Aug, 2014 [facility] [address] [id number] [address] [place] [address], [place] [address] Aug, 2014 [facility] [address] [id number] [address] [place] [address], [place] [address] Aug, 2014 [facility] [address] [id number] [address] [place] [address], [place] [address] Aug, 2014 [facility] [address] [id number] [address] [place] [address], [place] [address] Jul, [facility] [address] [id number] [address] [place] [address], [place] [address] Jul, [facility] [address] [id number] [address] [place] [address], [place] [address] Jul, [facility] [address] [id number] [address] [place] [address], [place] [address] Jul, [facility] [address] [id number] [address] [place] [address], [place] [address] Jul, [facility] [address] [id number] [address] [place] [address], [place] [address] Jul, [facility] [address] [id number] [address] [place] [address], [place] [address] Jul, [facility] [address] [id number] [address] [place] [address], [place] [address] Jul, [facility] [address] [id number] [address] [place] [address], [place] [address] Jun, [facility] [address] [id number] [address] [place] [address], [place] [address] Jun, [facility] [address] [id number] [address] [place] [address], [place] [address] Jun, [facility] [address] [id number] [address] [place] [address], [place] [address] 29 Jun, 2014 [facility] [address] [id number] [address] [place] [address], [place] [address] 18 Jun, 2014 [facility] [address] [id number] [address] [place] [address], [place] [address] Jun, [facility] [address] [id number] [address] [place] [address], [place] [address] Jun, [facility] [address] [id number] [address] [place] [address], [place] [address] Jun, [facility] [address] [id number] [address] [place] [address], [place] [address] Jun, [facility] [address] [id number] [address] [place] [address], [place] [address] Jun, [facility] [address] [id number] [address] [place] [address], [place] [address] Jun, [facility] [address] [id number] [address] [place] [address], [place] [address] May, [facility] [address] [id number] [address] [place] [address], [place] [address] May, [facility] [address] [id number] [address] [place] [address], [place] [address] May, [facility] [address] [id number] [address] [place] [address], [place] [address] May, [facility] [address] [id number] [address] [place] [address], [place] [address] May, [facility] [address] [id number] [address] [place] [address], [place] [address] May, [facility] [address] [id number] [address] [place] [address], [place] [address] May, [facility] [address] [id number] [address] [place] [address], [place] [address] Apr, [facility] [address] [id number] [address] [place] [address], [place] [address] Apr, [facility] [address] [id number] [address] [place] [address], [place] [address] Apr, [facility] [address] [id number] [address] [place] [address], [place] [address] Apr, [facility] [address] [id number] [address] [place] [address], [place] [address] Apr, [facility] [address] [id number] [address] [place] [address], [place] [address] Apr, [facility] [address] [id number] [address] [place] [address], [place] [address] Mar, [facility] [address] [id number] [address] [place] [address], [place] [address] Mar, [facility] [address] [id number] [address] [place] [address], [place] [address] Mar, [facility] [address] [id number] [address] [place] [address], [place] [address] Mar, [facility] [address] [id number] [address] [place] [address], [place] [address] Mar, [facility] [address] [id number] [address] [place] [address], [place] [address] Mar, [facility] [address] [id number] [address] [place] [address], [place] [address] Jan, [facility] [address] [id number] [address] [place] [address], [place] [address] Jan, [facility] [address] [id number] [address] [place] [address], [place] [address] Jan, [facility] [address] [id number] [address] [place] [address], [place] [address] Jan, [facility] [address] [id number] [address] [place] [address], [place] [address] Dec, [facility] [address] [id number] [address] [place] [address], [place] [address] Dec, [facility] [address] [id number] [address] [place] [address], [place] [address] Dec, [facility] [address] [id number] [address] [place] [address], [place] [address] Dec, [facility] [address] [id number] [address] [place] [address], [place] [address] Dec, [facility] [address] [id number] [address] [place] [address], [place] [address] Dec, [facility] [address] [id number] [address] [place] [address], [place] [address] Dec, [facility] [address] [id number] [address] [place] [address], [place] [address] Dec, [facility] [address] [id number] [address] [place] [address], [place] [address] Dec, [facility] [address] [id number] [address] [place] [address], [place] [id number] Dec, [facility] [address] [id number] [address] [place] [address], [place] [address] Dec, [facility] [address] [id number] [address] [place] [address], [place] [address] Dec, [facility] [address] [id number] [address] [place] [address], [place] [address] October, [facility] [address] [id number] [address] [place] [address], [place] [address] October, [facility] [address] [id number] [address] [place] [address], [place] [address] October, [facility] [address] [id number] [address] [place] [address], [place] [address] October, [facility] [address] [id number] [address] [place] [address], [place] [address] October, [facility] [address] [id number] [address] [place] [address], [place] [address] October, [facility] [address] [id number] [address] [place] [address], [place] [address] Oct, [facility] [address] [id number] [address] [place] [address], [place] [address] Oct, [facility] [address] [id number] [address] [place] [address], [place] [address] Oct, [facility] [address] [id number] [facility] [address] Oct, [facility] [address] [id number] [facility] [place] [address] Oct, [facility] [address] [id number] [facility] [place] [address] Oct, [facility] [address] [id number] [address] [place] [address], [place] [address] Oct, [facility] [address] [id number] [facility] [place] [address] Oct, [facility] [address] [id number] [address] [place] [address], [place] [address] Oct, [facility] [address] [id number] [address] [place] [address], [place] [address] Oct, [facility] [address] [id number] [address] [place] [address], [place] [address] Oct, [facility] [address] [id number] [address] [place] [address], [place] [id number] Oct, [facility] [address] [id number] [address] [place] [address], [place] [address] Aug, [facility] [address] [id number] [address] [place] [address], [place] [id number] 15 Aug, 2013 [facility] [address] [id number] [address] [place] [address], [place] [address] Aug, [facility] [address] [id number] [address] [place] [address], [place] [address] Aug, [facility] [address] [id number] [address] [place] [address], [place] [address] 05 Aug, 2013 [facility] [address] [id number] [address] [place] [address], [place] [address] 05 Aug, 2013 [facility] [address] [id number] [address] [place] [address], [place] [address] Aug, [facility] [address] [id number] [facility] [place] [address] Aug, [facility] [address] [id number] [address] [place] [address], [place] [address] Aug, [facility] [address] [id number] [address] [place] [address], [place] [address] Aug, [facility] [address] [id number] [address] [place] [address], [place] [address] Aug, [facility] [address] [id number] [address] [place] [address], [place] [address] Aug, [facility] [address] [id number] [address] [place] [address], [place] [address] Aug, [facility] [address] [id number] [address] [place] [address], [place] [address] 20 Aug, 2013 [facility] [address] [id number] [address] [place] [address], [place] [address] 14 Aug, 2013 [facility] [address] [id number] [address] [place] [address], [place] [address] Aug, [facility] [address] [id number] [address] [place] [address], [place] [address] Aug, [facility] [address] [id number] [address] [place] [address], [place] [address] Aug, [facility] [address] [id number] [address] [place] [address], [place] [address] 07 Aug, 2013 [facility] [address] [id number] [address] [place] [address], [place] [address] 07 Aug, 2013 [facility] [address] [id number] [address] [place] [address], [place] [address] 06 Aug, 2013 [facility] [address] [id number] [address] [place] [address], [place] [address] Aug, [facility] [address] [id number] [address] [place] [address], [place] [address] Aug, [facility] [address] [id number] [address] [place] [address], [place] [address] Aug, [facility] [address] [id number] [address] [place] [address], [place] [address] Aug, [facility] [address] [id number] [address] [place] [address], [place] [address] Jul, [facility] [address] [id number] [address] [place] [address], [place] [address] Jul, [facility] [address] [id number] [address] [place] [address], [place] [address] Jul, [facility] [address] [id number] [address] [place] [address], [place] [address] Jul, [facility] [address] [id number] [address] [place] [address], [place] [address] Jul, [facility] [address] [id number] [address] [place] [address], [place] [address] Jul, [facility] [address] [id number] [address] [place] [address], [place] [address] Jul, [facility] [address] [id number] [address] [place] [address], [place] [address] Jul, [facility] [address] [id number] [address] [place] [address], [place] [address] Jul, [facility] [address] [id number] [address] [place] [address], [place] [address] Jul, [facility] [address] [id number] [address] [place] [address], [place] [address] Jul, [facility] [address] [id number] [address] [place] [address], [place] [address] Jul, [facility] [address] [id number] [address] [place] [address], [place] [address] Jul, [facility] [address] [id number] [address] [place] [address], [place] [address] Jul, [facility] [address] [id number] [address] [place] [address], [place] [address] Jul, [facility] [address] [id number] [address] [place] [address], [place] [address] Jul, [facility] [address] [id number] [address] [place] [address], [place] [address] Jul, [facility] [address] [id number] [address] [place] [address], [place] [address] Jul, [facility] [address] [id number] [address] [place] [address], [place] [address] Jul, [facility] [address] [id number] [address] [place] [address], [place] [address] Jul, [facility] [address] [id number] [address] [place] [address], [place] [address] Jun, [facility] [address] [id number] [address] [place] [address], [place] [address] Jun, [facility] [address] [id number] [address] [place] [address], [place] [address] Jun, [facility] [address] [id number] [address] [place] [address], [place] [address] Jun, [facility] [address] [id number] [address] [place] [address], [place] [address] Jun, [facility] [address] [id number] [address] [place] [address], [place] [address] Jun, [facility] [address] [id number] [address] [place] [address], [place] [address] Jun, [facility] [address] [id number] [address] [place] [address], [place] [address] Jun, [facility] [address] [id number] [address] [place] [address], [place] [address] 24 Jun, 2013 [facility] [address] [id number] [address] [place] [address], [place] [address] Jun, [facility] [address] [id number] [address] [place] [address], [place] [address] Jun, [facility] [address] [id number] [address] [place] [address], [place] [address] Jun, [facility] [address] [id number] [address] [place] [address], [place] [address] Jun, [facility] [address] [id number] [address] [place] [address], [place] [address] Jun, [facility] [address] [id number] [address] [place] [address], [place] [address] Jun, [facility] [address] [id number] [address] [place] [address], [place] [address] Jun, [facility] [address] [id number] [address] [place] [address], [place] [address] 18 Jun, 2013 [facility] [address] [id number] [address] [place] [address], [place] [address] Jun, [facility] [address] [id number] [address] [place] [address], [place] [address] 17 Jun, 2013 [facility] [address] [id number] [address] [place] [address], [place] [address] 13 Jun, 2013 [facility] [address] [id number] [address] [place] [address], [place] [address] 12 Jun, 2013 [facility] [address] [id number] [address] [place] [address], [place] [address] Jun, [facility] [address] [id number] [address] [place] [address], [place] [address] 09 Jun, 2013 [facility] [address] [id number] [address] [place] [address], [place] [address] Jun, [facility] [address] [id number] [address] [place] [address], [place] [address] Jun, [facility] [address] [id number] [address] [place] [address], [place] [address] Jun, [facility] [address] [id number] [address] [place] [address], [place] [address] Jun, [facility] [address] [id number] [address] [place] [address], [place] [address] May, [facility] [address] [id number] [address] [place] [address], [place] [address] May, [facility] [address] [id number] [address] [place] [address], [place] [address] May, [facility] [address] [id number] [address] [place] [address], [place] [address] May, [facility] [address] [id number] [address] [place] [address] May, [facility] [address] [id number] [address] [place] [address], [place] [address] May, [facility] [address] [id number] [address] [place] [address] Apr, [facility] [address] [id number] [address] [place] [address] Apr, [facility] [address] [id number] [address] [place] [address] 30 Apr, 2013 [facility] [address] [id number] [address] [place] [address], [place] [address] 30 Apr, 2013 [facility] [address] [id number] [address] [place] [address] Apr, [facility] [address] [id number] [address] [place] [address] 15 Apr, 2013 [facility] [address] [id number] [address] [place] [address], [place] [address] 15 Apr, 2013 [facility] [address] [id number] [address] [place] [address], [place] [address] 01 Apr, 2013 [facility] [address] [id number] [address] [place] [address], [place] [address] 26 Mar, 2012 [facility] [address] [id number] [address] [place] [address], [place] [address] 24 Mar, 2012 [facility] [address] [id number] [address] [place] [address], [place] [address] 17 Mar, 2012 [facility] [address] [id number] [address] [place] [address], [place] [address] 17 Mar, 2012 [facility] [address] [id number] [address] [place] [address], [place] [address] 11 Mar, 2013 [facility] [address] [id number] [address] [place] [address], [place] [address] 10 Mar, 2012 [facility] [address] [id number] [address] [place] [address], [place] [address] 05 Mar, 2013 [facility] [address] [id number] [address] [place] [address], [place] [address] 04 Mar, 2013 [facility] [address] [id number] [address] [place] [address], [place] [address] 20 Jan, 2013 [facility] [address] [id number] [address] [place] [address], [place] [address] Jan, [facility] [address] [id number] [address] [place] [address], [place] [address] 14 Jan, 2013 [facility] [address] [id number] [address] [place] [address], [place] [address] 12 Jan, 2013 [facility] [address] [id number] [address] [place] [address], [place] [address] Jan, [facility] [address] [id number] [address] [place] [address], [place] [address] 05 Jan, 2013 [facility] [address] [id number] [facility] [place] [address] 31 Dec, 2012 [facility] [address] [id number] [address] [place] [address], [place] [address] 24 Dec, 2012 [facility] [address] [id number] [address] [place] [address], [place] [address] 22 Dec, 2012 [facility] [address] [id number] [address] [place] [address], [place] [address] 19 Dec, 2012 [facility] [address] [id number] [address] [place] [address], [place] [address] 18 Dec, 2012 [facility] [address] [id number] [address] [place] [address], [place] [address] 17 Dec, 2012 [facility] [address] [id number] [address] [place] [address], [place] [address] 16 Dec, 2012 [facility] [address] [id number] [address] [place] [address], [place] [address] 16 Dec, 2012 [facility] [address] [id number] [address] [place] [address], [place] [address] 15 Dec, 2012 [facility] [address] [id number] [address] [place] [address], [place] [address] 10 Dec, 2012 [facility] [address] [id number] [address] [place] [address], [place] [address] 28 Dec, 2012 [facility] [address] [id number] [address] [place] [address], [place] [address] 25 Dec, 2012 [facility] [address] [id number] [address] [place] [address], [place] [address] 19 Dec, 2012 [facility] [address] [id number] [address] [place] [address], [place] [address] 17 Dec, 2012 [facility] [address] [id number] [address] [place] [address], [place] [address] 13 Dec, 2012 [facility] [address] [id number] [address] [place] [address], [place] [address] Dec, [facility] [address] [id number] [address] [place] [address], [place] [address] October, [facility] [address] [id number] [address] [place] [address], [place] [address] October, [facility] [address] [id number] [address] [place] [address], [place] [address] October, [facility] [address] [id number] [address] [place] [address], [place] [address] October, [facility] [address] [id number] [address] [place] [address], [place] [address] October, [facility] [address] [id number] [address] [place] [address], [place] [address] October, [facility] [address] [id number] [address] [place] [address], [place] [address] October, [facility] [address] [id number] [address] [place] [address], [place] [address] Oct, [facility] [address] [id number] [address] [place] [address], [place] [address] Oct, [facility] [address] [id number] [address] [place] [address], [place] [address] Oct, [facility] [address] [id number] [address] [place] [address], [place] [address] Oct, [facility] [address] [id number] [address] [place] [address], [place] [address] Oct, [facility] [address] [id number] [address] [place] [address], [place] [address] 18 Oct, 2012 [facility] [address] [id number] [address] [place] [address], [place] [address] 17 Oct, 2012 [facility] [address] [id number] [address] [place] [address], [place] [address] 15 Oct, 2012 [facility] [address] [id number] [address] [place] [address], [place] [address] Oct, [facility] [address] [id number] [address] [place] [address], [place] [address] Oct, [facility] [address] [id number] [address] [place] [address], [place] [address] Oct, [facility] [address] [id number] [address] [place] [address], [place] [address] Oct, [facility] [address] [id number] [address] [place] [address], [place] [address] Aug, [facility] [address] [id number] [address] [place] [address], [place] [address] Aug, [facility] [address] [id number] [address] [place] [address], [place] [address] Aug, [facility] [address] [id number] [address] [place] [address], [place] [address] Aug, [facility] [address] [id number] [address] [place] [address], [place] [address] Aug, [facility] [address] [id number] [address] [place] [address], [place] [address] Aug, [facility] [address] [id number] [address] [place] [address], [place] [address] Aug, [facility] [address] [id number] [address] [place] [address], [place] [address] 14 Aug, 2012 [facility] [address] [id number] [address] [place] [address], [place] [address] Aug, [facility] [address] [id number] [address] [place] [address], [place] [address] Aug, [facility] [address] [id number] [address] [place] [address], [place] [address] 29 Jul, 2012 [facility] [address] [id number] [address] [place] [address], [place] [address] Jul, [facility] [address] [id number] [address] [place] [address], [place] [address] 08 Jul, 2012 [facility] [address] [id number] [address] [place] [address], [place] [address] 20 Jun, 2012 [facility] [address] [id number] [address] [place] [address], [place] [address] 18 Jun, 2012 [facility] [address] [id number] [address] [place] [address], [place] [address] 18 Jun, 2012 [facility] [address] [id number] [address] [place] [address], [place] [address] 18 Jun, 2012 [facility] [address] [id number] [address] [place] [address], [place] [address] 18 Jun, 2012 [facility] [address] [id number] [address] [place] [address], [place] [address] 14 Jun, 2012 [facility] [address] [id number] [address] [place] [address], [place] [address] 14 Jun, 2012 [facility] [address] [id number] [address] [place] [address], [place] [address] 13 Jun, 2012 [facility] [address] [id number] [address] [place] [address], [place] [address] 13 Jun, 2012 [facility] [address] [id number] [address] [place] [address], [place] [address] 11 Jun, 2012 [facility] [address] [id number] [address] [place] [address], [place] [address] 11 Jun, 2012 [facility] [address] [id number] [address] [place] [address], [place] [address] 11 Jun, 2012 [facility] [address] [id number] [address] [place] [address], [place] [address] 11 Jun, 2012 [facility] [address] [id number] [address] [place] [address], [place] [address] 07 Jun, 2012 [facility] [address] [id number] [address] [place] [address], [place] [address] 07 Jun, 2012 [facility] [address] [id number] [address] [place] [address], [place] [address] Jun, [facility] [address] [id number] [address] [place] [address], [place] [address] Jun, [facility] [address] [id number] [address] [place] [address], [place] [address] Jun, [facility] [address] [id number] [address] [place] [address], [place] [address] Jun, [facility] [address] [id number] [address] [place] [address], [place] [address] Jun, [facility] [address] [id number] [address] [place] [address], [place] [address] Jun, [facility] [address] [id number] [address] [place] [address], [place] [address] Jun, [facility] [address] [id number] [address] [place] [address], [place] [address] Jun, [facility] [address] [id number] [address] [place] [address], [place] [address] May, [facility] [address] [id number] [address] [place] [address], [place] [address] May, [facility] [address] [id number] [address] [place] [address], [place] [address] May, [facility] [address] [id number] [address] [place] [address], [place] [address] May, [facility] [address] [id number] [address] [place] [address], [place] [address] May, [facility] [address] [id number] [address] [place] [address], [place] [address] May, [facility] [address] [id number] [address] [place] [address], [place] [address] May, [facility] [address] [id number] [address] [place] [address], [place] [address] May, [facility] [address] [id number] [address] [place] [address], [place] [address] Apr, [facility] [address] [id number] [address] [place] [address], [place] [address] Apr, [facility] [address] [id number] [address] [place] [address], [place] [address] Apr, [facility] [address] [id number] [address] [place] [address], [place] [address] Apr, [facility] [address] [id number] [address] [place] [address], [place] [address] Apr, [facility] [address] [id number] [address] [place] [address], [place] [address] Apr, [facility] [address] [id number] [address] [place] [address], [place] [address] Apr, [facility] [address] [id number] [address] [place] [address], [place] [address] Apr, [facility] [address] [id number] [address] [place] [address], [place] [address] Apr, [facility] [address] [id number] [address] [place] [address], [place] [address] Apr, [facility] [address] [id number] [address] [place] [address], [place] [address] Apr, [facility] [address] [id number] [address] [place] [address], [place] [address] Apr, [facility] [address] [id number] [address] [place] [address], [place] [address] Mar, [facility] [address] [id number] [address] [place] [address], [place] [address] 18 Mar, 2012 [facility] [address] [id number] [address] [place] [address] Mar, [facility] [address] [id number] [address] [place] [address] Mar, [facility] [address] [id number] [address] [place] [id number] Mar, [facility] [address] [id number] [address] [place] [id number] Mar, [facility] [address] [id number] [address] [place] [address] Mar, [facility] [address] [id number] [address] [place] [address], [place] [address] Jan, [facility] [address] [id number] [address] [place] [address] Jan, [facility] [address] [id number] [address] [place] [id number] Jan, [facility] [address] [id number] [address] [place] [id number] Jan, [facility] [address] [id number] [address] [place] [address], [place] [address] Jan, [facility] [address] [id number] [address] [place] [address] Jan, [facility] [address] [id number] [address] [place] [address] Jan, [facility] [address] [id number] [address] [place] [id number] Jan, [facility] [address] [id number] [address] [place] [address], [place] [address] Jan, [facility] [address] [id number] [address] [place] [address], [place] [address] Jan, [facility] [address] [id number] [address] [place] [id number] Jan, [facility] [address] [id number] [address] [place] [address], [place] [address] 28 Jan, 2012 [facility] [address] [id number] [address] [place] [address], [place] [address] 27 Jan, 2012 [facility] [address] [id number] [address] [place] [address], [place] [address] 26 Jan, 2012 [facility] [address] [id number] [address] [place] [address], [place] [address] 26 Jan, 2012 [facility] [address] [id number] [address] [place] [address], [place] [address] 20 Jan, 2012 [facility] [address] [id number] [address] [place] [address], [place] [address] 19 Jan, 2012 [facility] [address] [id number] [address] [place] [address], [place] [address] 18 Jan, 2012 [facility] [address] [id number] [address] [place] [address], [place] [id number] 17 Jan, 2012 [facility] [address] [id number] [address] [place] [address], [place] [address] 16 Jan, 2012 [facility] [address] [id number] [address] [place] [address], [place] [address] Dec, [facility] [address] [id number] [address] [place] [address], [place] [address] 13 Jan, 2012 [facility] [address] [id number] [address] [place] [address], [place] [address] 02 Jan, 2012 [facility] [address] [id number] [address] [place] [address], [place] [address] Dec, [facility] [address] [id number] [address] [place] [address], [place] [address] Dec, [facility] [address] [id number] [address] [place] [address], [place] [address] Dec, [facility] [address] [id number] [address] [place] [address], [place] [address] 18 Dec, 2011 [facility] [address] [id number] [address] [place] [address], [place] [address] Dec, [facility] [address] [id number] [address] [place] [address], [place] [address] Dec, [facility] [address] [id number] [address] [place] [address], [place] [address] Dec, [facility] [address] [id number] [address] [place] [address], [place] [address] October, [facility] [address] [id number] [address] [place] [address], [place] [address] October, [facility] [address] [id number] [address] [place] [address], [place] [address] October, [facility] [address] [id number] [address] [place] [address], [place] [address] October, [facility] [address] [id number] [address] [place] [address], [place] [address] October, [facility] [address] [id number] [address] [place] [address], [place] [address] October, [facility] [address] [id number] [address] [place] [address], [place] [address] Oct, [facility] [address] [id number] [address] [place] [address], [place] [address] Oct, [facility] [address] [id number] [address] [place] [address], [place] [address] Oct, [facility] [address] [id number] [address] [place] [address], [place] [address] Oct, [facility] [address] [id number] [address] [place] [address], [place] [address] Oct, [facility] [address] [id number] [address] [place] [address], [place] [address] Oct, [facility] [address] [id number] [address] [place] [address], [place] [address] 02 Oct, 2011 [facility] [address] [id number] [address] [place] [address], [place] [address] 29 Sep, 2011 [facility] [address] [id number] [address] [place] [address], [place] [address] 29 Sep, 2011 [facility] [address] [id number] [address] [place] [address], [place] [address] 19 Sep, 2011 [facility] [address] [id number] [address] [place] [address], [place] [address] 13 Sep, 2011 [facility] [address] [id number] [address] [place] [address], [place] [address] 05 Sep, 2011 [facility] [address] [id number] [address] [place] [address], [place] [address] 05 Sep, 2011 [facility] [address] [id number] [address] [place] [address], [place] [address] 27 Aug, 2011 [facility] [address] [id number] [address] [place] [address], [place] [address] 20 Aug, 2011 [facility] [address] [id number] [address] [place] [address], [place] [address] 08 Aug, 2011 [facility] [address] [id number] [address] [place] [address], [place] [address] 31 Jul, 2011 [facility] [address] [id number] [address] [place] [address], [place] [address] Jul, [facility] [address] [id number] [address] [place] [address], [place] [address] 23 Jul, 2011 [facility] [address] [id number] [address] [place] [address], [place] [address] 10 Jul, 2011 [facility] [address] [id number] [address] [place] [address], [place] [id number] 28 Jun, 2011 [facility] [address] [id number] [address] [place] [address], [place] [address] Jun, [facility] [address] [id number] [address] [place] [address], [place] [address] May, [facility] [address] [id number] [address] [place] [address], [place] [address] May, [facility] [address] [id number] [address] [place] [address], [place] [address] May, [facility] [address] [id number] [address] [place] [address], [place] [address] May, [facility] [address] [id number] [address] [place] [address], [place] [address] May, [facility] [address] [id number] [address] [place] [address], [place] [address] Apr, [facility] [address] [id number] [address] [place] [address], [place] [address] Apr, [facility] [address] [id number] [address] [place] [address], [place] [address] Apr, [facility] [address] [id number] [address] [place] [address], [place] [address] Jan, [facility] [address] [id number] [address] [place] [address], [place] [address] Dec, [facility] [address] [id number] [address] [place] [address], [place] [address] October, [facility] [address] [id number] [address] [place] [address], [place] [address] Jun, [facility] [address] [id number] [address] [place] [address], [place] [address] 23 Apr, 2009 [facility] [address] [id number] [address] [place] [address], [place] [address] Apr, [facility] [address] [id number] [address] [place] [address], [place] [address] Apr, [facility] [address] [id number] [address] [place] [address], [place] [address] Jun, IMMUNIZATIONS No Known Immunizations SOCIAL HISTORY Never Assessed REASON FOR VISIT PLAN OF CARE VITAL SIGNS Height 69 in 2014-06-16 Weight 203.25 lbs 2014-06-16 Temperature 99.1 degrees Fahrenheit 2014-06-16 Heart Rate 82 bpm 2014-06-16 Respiratory Rate 28 2014-06-16 Blood pressure systolic 160 mmHg 2014-06-16 Blood pressure diastolic 98 mmHg 2014-06-16 MEDICATIONS Unknown Medications RESULTS No Results PROCEDURES [...]
--- OUTSIDE RECORDS SUMMARY | 2020-01-25 12:38 | XMS REPORT ---
Author Author Ana Mayer Doctor Organization [facility] Address Unknown Phone Unavailable Care Team Providers Care Doll Wig Maker Name Role Phone Migration, Doctor Unavailable Unavailable PROBLEMS Type Condition ICD9-CM Code [id number] Code Onset Dates Condition S tatus SNOMED Code Problem Attention deficit R41.840 Active 76 291251 Problem Chronic hepatitis C without hepatic coma B18.2 Active 631574804 Problem Cannabis abuse F12.10 Active 65030 009 Problem Bipolar disorder, in partial remission, most rec ent episode hypomanic F31.71 Active 425779544 Problem Attention deficit hyperactivity disorder (ADHD), combi luciano type F90.2 Active 01243570 Problem Bipolar 1 disorder F31.9 Active 3 39895922 Problem H/O laminectomy Z98.89 Active 1616 87970 Problem Other chronic pain G89.29 Active 8 0376301 Problem Anxiety disorder, unspecified type F41.9 Active 117777595 ALLERGIES No Information ENCOUNTERS Encounter Location Date Diagnosis [facility] [address] [id number] [address] [place] [phone] Mar, [facility] [address] [id number] [address] [place] [address] Dec, Other chronic pain G89.29 an d Low back pain M54.5 [facility] [address] [id number] [address] [place] [address] October, [facility] [address] [id number] [address] [place] [address] October, [facility] [address] [id number] [address] [place] [address] October, [facility] [address] [id number] [address] [place] [address] October, Other chronic pain G89.29 an d Chronic hepatitis C without hepatic coma B18.2 [facility] [address] [id number] [address] [place] [address] Aug, Bipolar disorder, in partial remission, most recent episode hypomanic F31.71 ; Attention deficit hyperactivity disorder (ADHD), combined type F90.2 and Anxiety disorder, unspecified type F41.9 [facility] [address] [id number] [address] [place] [address] Aug, [facility] [address] [id number] [address] [place] [address] Aug, Bipolar disorder, in partial remission, most recent episode hypomanic F31.71 [facility] [address] [id number] [address] [place] [address] Aug, [facility] [address] [id number] [address] [place] [address] Aug, Bipolar disorder, in partial remission, most recent episode hypomanic F31.71 [facility] [address] [id number] [address] [place] [address] Aug, Bipolar disorder, in partial remission, most recent episode hypomanic F31.71 ; Attention deficit hyperactivity disorder (ADHD), combined type F90.2 and Anxiety disorder, unspecified type F41.9 [facility] [address] [id number] [address] [place] [address] Aug, Low back pain M54.5 and Pain in left wrist M25.532 [facility] [address] [id number] [address] [place] [address] Aug, [facility] [address] [id number] [address] [place] [address] Jun, [facility] [address] [id number] [address] [place] [address] Apr, Bipolar disorder, in partial remission, most recent episode hypomanic F31.71 [facility] [address] [id number] [address] [place] [address] Apr, [facility] [address] [id number] [address] [place] [address] Apr, Bipolar disorder, in partial remission, most recent episode hypomanic F31.71 ; Attention deficit hyperactivity disorder (ADHD), combined type F90.2 ; Anxiety disorder, unspecified type F41.9 and 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 (current) 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 Z79.899 [facility] [address] [id number] [address] [place] [address] Apr, Bipolar disorder, in partial remission, most recent episode hypomanic F31.71 [facility] [address] [id number] [address] [place] [address] Apr, Bipolar disorder, in partial remission, most recent episode hypomanic F31.71 [facility] [address] [id number] [address] [place] [address] Mar, [facility] [address] [id number] [address] [place] [address] Mar, Bipolar disorder, in partial remission, most recent episode hypomanic F31.71 ; Encounter for immunization Z23 and Low back pain M54.5 [facility] [address] [id number] [address] [place] [address] Mar, Bipolar disorder, in partial remission, most recent episode hypomanic F31.71 [facility] [address] [id number] [address] [place] [address] Mar, Bipolar disorder, in partial remission, most recent episode hypomanic F31.71 [facility] [address] [id number] [address] [place] [address] Jan, Bipolar disorder, in partial remission, most recent episode hypomanic F31.71 [facility] [address] [id number] [address] [place] [address] Jan, Bipolar disorder, in partial remission, most recent episode hypomanic F31.71 [facility] [address] [id number] [address] [place] [address] Dec, Bipolar disorder, in partial remission, most recent episode hypomanic F31.71 [facility] [address] [id number] [address] [place] [address] Dec, Bipolar disorder, in partial remission, most recent episode hypomanic F31.71 ; Attention deficit hyperactivity disorder (ADHD), combined type F90.2 ; Anxiety disorder, unspecified type F41.9 and 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 (current) 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 Z79.899 [facility] [address] [id number] [address] [place] [address] Dec, Bipolar disorder, in partial remission, most recent episode hypomanic F31.71 [facility] [address] [id number] [address] [place] [address] Dec, Bipolar disorder, in partial remission, most recent episode hypomanic F31.71 [facility] [address] [id number] [address] [place] [address] October, Bipolar disorder, in partial remission, most recent episode hypomanic F31.71 [facility] [address] [id number] [address] [place] [address] October, [facility] [address] [id number] [address] [place] [address] October, [facility] [address] [id number] [address] [place] [address] Oct, Bipolar disorder, in partial remission, most recent episode hypomanic F31.71 ; Attention deficit hyperactivity disorder (ADHD), combined type F90.2 ; Anxiety disorder, unspecified type F41.9 and Encounter for drug screening Z02.83 [facility] [address] [id number] [address] [place] [address] Oct, Bipolar disorder, in partial remission, most recent episode hypomanic F31.71 [facility] [address] [id number] [address] [place] [address] Oct, Bipolar disorder, in partial remission, most recent episode hypomanic F31.71 [facility] [address] [id number] [address] [place] [address] Aug, Bipolar disorder, in partial remission, most recent episode hypomanic F31.71 [facility] [address] [id number] [address] [place] [address] Aug, Bipolar disorder, in partial remission, most recent episode hypomanic F31.71 [facility] [address] [id number] [address] [place] [address] Aug, Bipolar disorder, in partial remission, most recent episode hypomanic F31.71 [facility] [address] [id number] [address] [place] [address] Jul, Bipolar disorder, in partial remission, most recent episode hypomanic F31.71 ; Attention deficit hyperactivity disorder (ADHD), combined type F90.2 and Anxiety disorder, unspecified type F41.9 [facility] [address] [id number] [address] [place] [address] Jul, Bipolar disorder, in partial remission, most recent episode hypomanic F31.71 [facility] [address] [id number] [address] [place] [address] Jun, Bipolar disorder, in partial remission, most recent episode hypomanic F31.71 [facility] [address] [id number] [address] [place] [address] May, Bipolar disorder, in partial remission, most recent episode hypomanic F31.71 [facility] [address] [id number] [address] [place] [address] May, Bipolar disorder, in partial remission, most recent episode hypomanic F31.71 [facility] [address] [id number] [address] [place] [address] Apr, [facility] [address] [id number] [address] [place] [address] Apr, Bipolar disorder, in partial remission, most recent episode hypomanic F31.71 ; Attention deficit hyperactivity disorder (ADHD), combined type F90.2 ; Anxiety disorder, unspecified type F41.9 and Cannabis abuse F12.10 [facility] [address] [id number] [address] [place] [address] 13 Apr, 2017 Attention deficit hyperactiv ity disorder (ADHD), combined type F90.2 [facility] [address] [id number] [address] [place] [address] Mar, Attention deficit hyperactiv ity disorder (ADHD), combined type F90.2 [facility] [address] [id number] [address] [place] [id number] 14 Mar, 2017 Anxiety disorder, unspecifie d type F41.9 [facility] [address] [id number] [address] [place] [address] Jan, Attention deficit hyperactiv ity disorder (ADHD), combined type F90.2 [facility] [address] [id number] [address] [place] [address] Jan, Anxiety disorder, unspecifie d type F41.9 [facility] [address] [id number] [address] [place] [address] Jan, Other chronic pain G89.29 ; Chronic hepatitis C without hepatic coma B18.2 and Bipolar 1 disorder F31.9 [facility] [address] [id number] [address] [place] [address] Dec, Attention deficit hyperactiv ity disorder (ADHD), combined type F90.2 [facility] [address] [id number] [address] [place] [address] Dec, Bipolar disorder, in partial remission, most recent episode hypomanic F31.71 ; Attention deficit hyperactivity disorder (ADHD), combined type F90.2 and Anxiety disorder, unspecified type F41.9 [facility] [address] [id number] [address] [place] [address] Dec, Bipolar disorder, in partial remission, most recent episode hypomanic F31.71 ; Attention deficit hyperactivity disorder (ADHD), combined type F90.2 and Anxiety disorder, unspecified type F41.9 [facility] [address] [id number] [address] [place] [address] Dec, Bipolar 1 disorder F31.9 and Attention deficit R41.840 [facility] [address] [id number] [address] [place] [address] Oct, Other chronic pain G89.29 ; Alopecia L65.9 and Screening, lipid Z13.220 [facility] [address] [id number] [address] [place] [address] Oct, [facility] [address] [id number] [address] [place] [address] Aug, [facility] [id number] [place] [phone] Aug, Eustachian tube dysfunction, right H69.81 ; Vertigo R42 and Other chronic pain G89.29 [facility] [address] [id number] [address] [place] [address] Aug, [facility] [address] [id number] [address] [place] [address] Jun, [facility] [address] [id number] [address] [place] [address] Jun, Low back pain M54.5 and Othe r chronic pain G89.29 [facility] [address] [id number] [address] [place] [address] Jun, [facility] [address] [id number] [address] [place] [address] May, [facility] [address] [id number] [address] [place] [address] Jan, [facility] [address] [id number] [address] [place] [address] Dec, [facility] [address] [id number] [address] [place] [address] Dec, [facility] [address] [id number] [address] [place] [address] Jun, [facility] [id number] [place] [address] Apr, Eustachian tube dysfunction, unspecified laterality H69.80 ; Hot flashes N95.1 and Encounter for immunization Z23 [facility] [address] [id number] [address] [place] [address] Jan, [facility] [address] [id number] [address] [place] [address] Jan, [facility] [id number] [place] [address] Jan, [facility] [address] [address] Jan, [facility] [address] [address] Jan, Encounter to establish care V65.8 ; Bipolar 1 disorder 296.7 ; Abdominal pain 789.00 ; Constipation 564.00 ; Hard of hearing 389.9 and Drug abuse 305.90 [facility] [address] [id number] [address] [place] [address] Dec, [facility] [id number] [place] [address] October, [facility] [address] [id number] [address] [place] [address] October, [facility] [address] [id number] [address] [place] [address] Oct, [facility] [address] [id number] [address] [place] [address] Oct, [facility] [address] [id number] [address] [place] [address] Oct, [facility] [address] [id number] [address] [place] [address], [place] [address] Aug, 2014 [facility] [address] [id number] [address] [place] [address], [place] [address] Aug, 2014 [facility] [address] [id number] [address] [place] [address], [place] [address] Aug, 2014 [facility] [address] [id number] [address] [place] [address], [place] [address] Aug, 2014 [facility] [address] [id number] [address] [place] [address], [place] [address] Aug, 2014 [facility] [address] [id number] [address] [place] [address], [place] [address] Aug, 2014 [facility] [address] [id number] [address] [place] [address], [place] [address] Aug, 2014 [facility] [address] [id number] [address] [place] [address], [place] [address] Aug, 2014 [facility] [address] [id number] [address] [place] [address], [place] [address] Aug, 2014 [facility] [address] [id number] [address] [place] [address], [place] [address] Aug, 2014 [facility] [address] [id number] [address] [place] [address] Aug, 2014 [facility] [address] [id number] [address] [place] [address] Aug, 2014 [facility] [address] [id number] [address] [place] [address], [place] [address] Aug, 2014 [facility] [address] [id number] [address] [place] [address], [place] [address] Aug, 2014 [facility] [address] [id number] [address] [place] [address] Aug, 2014 [facility] [address] [id number] [address] [place] [address] Jul, [facility] [address] [id number] [address] [place] [address], [place] [address] Jul, [facility] [address] [id number] [address] [place] [address], [place] [address] Jul, [facility] [address] [id number] [address] [place] [address], [place] [address] Jul, [facility] [address] [id number] [address] [place] [address], [place] [address] Jul, [facility] [address] [id number] [address] [place] [address], [place] [address] Jul, [facility] [address] [id number] [address] [place] [address], [place] [address] Jul, [facility] [address] [id number] [address] [place] [address], [place] [address] Jul, [facility] [address] [id number] [address] [place] [address], [place] [address] Jun, [facility] [address] [id number] [address] [place] [address], [place] [address] Jun, [facility] [address] [id number] [address] [place] [address], [place] [address] Jun, [facility] [address] [id number] [address] [place] [address], [place] [address] Jun, [facility] [address] [id number] [address] [place] [address], [place] [address] 18 Jun, 2014 [facility] [address] [id number] [address] [place] [address], [place] [address] 15 Jun, 2014 [facility] [address] [id number] [address] [place] [address], [place] [address] Jun, [facility] [address] [id number] [address] [place] [address], [place] [address] Jun, [facility] [address] [id number] [address] [place] [address], [place] [address] Jun, [facility] [address] [id number] [address] [place] [address], [place] [address] Jun, [facility] [address] [id number] [address] [place] [address], [place] [address] Jun, [facility] [address] [id number] [address] [place] [address], [place] [address] May, [facility] [address] [id number] [address] [place] [address], [place] [address] May, [facility] [address] [id number] [address] [place] [address], [place] [address] May, [facility] [address] [id number] [address] [place] [address], [place] [address] May, [facility] [address] [id number] [address] [place] [address], [place] [address] May, [facility] [address] [id number] [address] [place] [address], [place] [address] May, [facility] [address] [id number] [address] [place] [address], [place] [address] May, [facility] [address] [id number] [address] [place] [address], [place] [address] Apr, [facility] [address] [id number] [address] [place] [address], [place] [address] Apr, [facility] [address] [id number] [address] [place] [address], [place] [address] Apr, [facility] [address] [id number] [address] [place] [address], [place] [address] Apr, [facility] [address] [id number] [address] [place] [address], [place] [address] Apr, [facility] [address] [id number] [address] [place] [address], [place] [address] Apr, [facility] [address] [id number] [address] [place] [address], [place] [address] Mar, [facility] [address] [id number] [address] [place] [address], [place] [address] Mar, [facility] [address] [id number] [address] [place] [address], [place] [address] Mar, [facility] [address] [id number] [address] [place] [address], [place] [address] Mar, [facility] [address] [id number] [address] [place] [address], [place] [address] Mar, [facility] [address] [id number] [address] [place] [address], [place] [address] Mar, [facility] [address] [id number] [address] [place] [address], [place] [address] Jan, [facility] [address] [id number] [address] [place] [address], [place] [address] Jan, [facility] [address] [id number] [address] [place] [address], [place] [address] Jan, [facility] [address] [id number] [address] [place] [address], [place] [address] Jan, [facility] [address] [id number] [address] [place] [address], [place] [address] Dec, [facility] [address] [id number] [address] [place] [address], [place] [address] Dec, [facility] [address] [id number] [address] [place] [address], [place] [address] Dec, [facility] [address] [id number] [address] [place] [address], [place] [address] Dec, [facility] [address] [id number] [address] [place] [address], [place] [address] Dec, [facility] [address] [id number] [address] [place] [address], [place] [address] Dec, [facility] [address] [id number] [address] [place] [address], [place] [address] Dec, [facility] [address] [id number] [address] [place] [address], [place] [address] Dec, [facility] [address] [id number] [address] [place] [address], [place] [address] Dec, [facility] [address] [id number] [address] [place] [address], [place] [address] Dec, [facility] [address] [id number] [address] [place] [address], [place] [address] Dec, [facility] [address] [id number] [address] [place] [address], [place] [address] Dec, [facility] [address] [id number] [address] [place] [address], [place] [address] October, [facility] [address] [id number] [address] [place] [address], [place] [address] October, [facility] [address] [id number] [address] [place] [address], [place] [address] October, [facility] [address] [id number] [address] [place] [address], [place] [address] October, [facility] [address] [id number] [address] [place] [address], [place] [address] October, [facility] [address] [id number] [address] [place] [address], [place] [address] October, [facility] [address] [id number] [address] [place] [address], [place] [address] Oct, [facility] [address] [id number] [address] [place] [address], [place] [address] Oct, [facility] [address] [address] [id number] [address] [place] [address], [place] [address] Oct, [facility] [address] [id number] [facility] [place] [address] Oct, [facility] [address] [id number] [facility] [place] [address] Oct, [facility] [address] [id number] [facility] [place] [address] Oct, [facility] [address] [id number] [facility] [place] [address] Oct, [facility] [address] [id number] [facility] [place] [address] Oct, [facility] [address] [id number] [address] [place] [address], [place] [address] Oct, [facility] [address] [id number] [address] [place] [address], [place] [address] Oct, [facility] [address] [id number] [address] [place] [address], [place] [address] Oct, [facility] [address] [id number] [address] [place] [address], [place] [address] Oct, [facility] [address] [id number] [address] [place] [address], [place] [address] Aug, [facility] [address] [id number] [address] [place] [address], [place] [address] 15 Aug, 2013 [facility] [address] [id number] [address] [place] [address], [place] [address] Aug, [facility] [address] [id number] [address] [place] [address], [place] [address] Aug, [facility] [address] [id number] [address] [place] [address], [place] [address] 05 Aug, 2013 [facility] [address] [id number] [address] [place] [address], [place] [address] 05 Aug, 2013 [facility] [address] [id number] [address] [place] [address], [place] [address] Aug, [facility] [address] [id number] [address] [place] [address], [place] [address] Aug, [facility] [address] [id number] [address] [place] [address], [place] [address] Aug, [facility] [address] [id number] [address] [place] [address], [place] [address] Aug, [facility] [address] [id number] [address] [place] [address], [place] [address] Aug, [facility] [address] [id number] [address] [place] [address], [place] [address] Aug, [facility] [address] [id number] [address] [place] [address], [place] [address] Aug, [facility] [address] [id number] [address] [place] [address], [place] [address] 20 Aug, 2013 [facility] [address] [id number] [address] [place] [address], [place] [address] 14 Aug, 2013 [facility] [address] [id number] [address] [place] [address], [place] [address] Aug, [facility] [address] [id number] [address] [place] [address], [place] [address] 14 Aug, 2013 [facility] [address] [id number] [address] [place] [address], [place] [address] 14 Aug, 2013 [facility] [address] [id number] [address] [place] [address], [place] [address] 07 Aug, 2013 [facility] [address] [id number] [address] [place] [address], [place] [address] 07 Aug, 2013 [facility] [address] [id number] [address] [place] [address], [place] [address] 06 Aug, 2013 [facility] [address] [id number] [address] [place] [address], [place] [address] Aug, [facility] [address] [id number] [address] [place] [address], [place] [address] Aug, [facility] [address] [id number] [address] [place] [address], [place] [address] Aug, [facility] [address] [id number] [address] [place] [address], [place] [address] Aug, [facility] [address] [id number] [address] [place] [address], [place] [address] Jul, [facility] [address] [id number] [address] [place] [address], [place] [address] Jul, [facility] [address] [id number] [address] [place] [address], [place] [address] Jul, [facility] [address] [id number] [address] [place] [address], [place] [address] Jul, [facility] [address] [id number] [address] [place] [address], [place] [address] Jul, [facility] [address] [id number] [address] [place] [address], [place] [address] Jul, [facility] [address] [id number] [address] [place] [address], [place] [address] Jul, [facility] [address] [id number] [address] [place] [address], [place] [address] Jul, [facility] [address] [id number] [address] [place] [address], [place] [address] Jul, [facility] [address] [id number] [address] [place] [address], [place] [address] Jul, [facility] [address] [id number] [address] [place] [address], [place] [address] Jul, [facility] [address] [id number] [address] [place] [address], [place] [address] Jul, [facility] [address] [id number] [address] [place] [address] Jul, [facility] [address] [id number] [address] [place] [address], [place] [address] Jul, [facility] [address] [id number] [address] [place] [address], [place] [address] Jul, [facility] [address] [id number] [address] [place] [address], [place] [address] Jul, [facility] [address] [id number] [address] [place] [address], [place] [address] Jul, [facility] [address] [id number] [address] [place] [address], [place] [address] Jul, [facility] [address] [id number] [address] [place] [address], [place] [address] Jul, [facility] [address] [id number] [address] [place] [address], [place] [address] Jul, [facility] [address] [id number] [address] [place] [address], [place] [address] Jun, [facility] [address] [id number] [address] [place] [address], [place] [address] Jun, [facility] [address] [id number] [address] [place] [address], [place] [address] Jun, [facility] [address] [id number] [address] [place] [address], [place] [address] Jun, [facility] [address] [id number] [address] [place] [address], [place] [address] Jun, [facility] [address] [id number] [address] [place] [address], [place] [address] Jun, [facility] [address] [id number] [address] [place] [address], [place] [address] Jun, [facility] [address] [id number] [address] [place] [address], [place] [address] Jun, [facility] [address] [id number] [address] [place] [address], [place] [address] 24 Jun, 2013 [facility] [address] [id number] [address] [place] [address], [place] [address] Jun, [facility] [address] [id number] [address] [place] [address], [place] [address] Jun, [facility] [address] [id number] [address] [place] [address], [place] [address] Jun, [facility] [address] [id number] [address] [place] [address], [place] [address] Jun, [facility] [address] [id number] [address] [place] [address], [place] [address] Jun, [facility] [address] [id number] [address] [place] [address], [place] [address] Jun, [facility] [address] [id number] [address] [place] [address], [place] [address] Jun, [facility] [address] [id number] [address] [place] [address], [place] [address] 18 Jun, 2013 [facility] [address] [id number] [address] [place] [address], [place] [address] 17 Jun, 2013 [facility] [address] [id number] [address] [place] [address], [place] [address] 17 Jun, 2013 [facility] [address] [id number] [address] [place] [address], [place] [address] 13 Jun, 2013 [facility] [address] [id number] [address] [place] [address], [place] [address] 12 Jun, 2013 [facility] [address] [id number] [address] [place] [address], [place] [address] Jun, [facility] [address] [id number] [address] [place] [address], [place] [address] 09 Jun, 2013 [facility] [address] [id number] [address] [place] [address] [address] Jun, [facility] [address] [id number] [address] [place] [address], [place] [address] Jun, [facility] [address] [id number] [address] [place] [address], [place] [address] Jun, [facility] [address] [id number] [address] [place] [address], [place] [address] Jun, [facility] [address] [id number] [address] [place] [address], [place] [address] May, [facility] [address] [id number] [address] [place] [address], [place] [address] May, [facility] [address] [id number] [address] [place] [address] May, [facility] [address] [id number] [address] [place] [address], [place] [address] May, [facility] [address] [id number] [address] [place] [address] May, [facility] [address] [id number] [address] [place] [address] May, [facility] [address] [id number] [address] [place] [address] Apr, [facility] [address] [id number] [address] [place] [address] 30 Apr, 2013 [facility] [address] [id number] [address] [place] [address] 30 Apr, 2013 [facility] [address] [id number] [address] [place] [address] 30 Apr, 2013 [facility] [address] [id number] [address] [place] [address] Apr, [facility] [address] [id number] [address] [place] [address] 15 Apr, 2013 [facility] [address] [id number] [address] [place] [address], [place] [address] 15 Apr, 2013 [facility] [address] [id number] [address] [place] [address], [place] [address] 01 Apr, 2013 [facility] [address] [id number] [address] [place] [address], [place] [address] 26 Mar, 2012 [facility] [address] [id number] [address] [place] [address], [place] [address] 24 Mar, 2012 [facility] [address] [id number] [address] [place] [address], [place] [address] 17 Mar, 2012 [facility] [address] [id number] [address] [place] [address], [place] [address] 17 Mar, 2012 [facility] [address] [id number] [address] [place] [address], [place] [address] 11 Mar, 2013 [facility] [address] [id number] [address] [place] [address], [place] [address] 10 Mar, 2012 [facility] [address] [id number] [address] [place] [address], [place] [address] 05 Mar, 2013 [facility] [address] [id number] [address] [place] [address], [place] [address] 04 Mar, 2013 [facility] [address] [id number] [address] [place] [address], [place] [address] 20 Jan, 2013 [facility] [address] [id number] [address] [place] [address], [place] [address] Jan, [facility] [address] [id number] [address] [place] [address], [place] [address] 14 Jan, 2013 [facility] [address] [id number] [address] [place] [address], [place] [address] 12 Jan, 2013 [facility] [address] [id number] [address] [place] [address], [place] [address] Jan, [facility] [address] [id number] [address] [place] [address], [place] [address] Jan, [facility] [address] [id number] [address] [place] [address], [place] [address] 31 Dec, 2012 [facility] [address] [id number] [address] [place] [address], [place] [address] 24 Dec, 2012 [facility] [address] [id number] [address] [place] [address], [place] [address] Dec, [facility] [address] [id number] [address] [place] [address], [place] [address] Dec, [facility] [address] [id number] [address] [place] [address], [place] [address] 18 Dec, 2012 [facility] [address] [id number] [address] [place] [address], [place] [address] 17 Dec, 2012 [facility] [address] [id number] [address] [place] [address], [place] [address] 16 Dec, 2012 [facility] [address] [id number] [address] [place] [address], [place] [address] 16 Dec, 2012 [facility] [address] [id number] [address] [place] [address], [place] [address] 15 Dec, 2012 [facility] [address] [id number] [address] [place] [address], [place] [address] Dec, [facility] [address] [id number] [address] [place] [address], [place] [address] Dec, [facility] [address] [id number] [address] [place] [address], [place] [address] Dec, [facility] [address] [id number] [address] [place] [address], [place] [address] Dec, [facility] [address] [id number] [address] [place] [address], [place] [address] 17 Dec, 2012 [facility] [address] [id number] [address] [place] [address], [place] [address] 13 Dec, 2012 [facility] [address] [id number] [address] [place] [address], [place] [address] Dec, [facility] [address] [id number] [address] [place] [address], [place] [address] October, [facility] [address] [id number] [address] [place] [address], [place] [address] October, [facility] [address] [id number] [address] [place] [address], [place] [address] October, [facility] [address] [id number] [address] [place] [address], [place] [address] October, [facility] [address] [id number] [address] [place] [address], [place] [address] October, [facility] [address] [id number] [address] [place] [address], [place] [address] October, [facility] [address] [id number] [address] [place] [address], [place] [address] October, [facility] [address] [id number] [address] [place] [address], [place] [address] Oct, [facility] [address] [id number] [address] [place] [address], [place] [address] Oct, [facility] [address] [id number] [address] [place] [address], [place] [address] Oct, [facility] [address] [id number] [address] [place] [address], [place] [address] Oct, [facility] [address] [id number] [address] [place] [address], [place] [address] Oct, [facility] [address] [id number] [address] [place] [address], [place] [address] 18 Oct, 2012 [facility] [address] [id number] [address] [place] [address], [place] [address] 17 Oct, 2012 [facility] [address] [id number] [address] [place] [address], [place] [address] 15 Oct, 2012 [facility] [address] [id number] [address] [place] [address], [place] [address] Oct, [facility] [address] [id number] [address] [place] [address], [place] [address] Oct, [facility] [address] [id number] [address] [place] [address], [place] [address] Oct, [facility] [address] [id number] [address] [place] [address], [place] [address] Oct, [facility] [address] [id number] [address] [place] [address], [place] [address] Aug, [facility] [address] [id number] [address] [place] [address], [place] [address] Aug, [facility] [address] [id number] [address] [place] [address], [place] [address] Aug, [facility] [address] [id number] [address] [place] [address], [place] [address] Aug, [facility] [address] [id number] [address] [place] [address], [place] [address] Aug, [facility] [address] [id number] [address] [place] [address], [place] [address] Aug, [facility] [address] [id number] [address] [place] [address], [place] [address] Aug, [facility] [address] [id number] [address] [place] [address], [place] [address] 14 Aug, 2012 [facility] [address] [id number] [address] [place] [address], [place] [address] Aug, [facility] [address] [id number] [address] [place] [address], [place] [address] Aug, [facility] [address] [id number] [address] [place] [address], [place] [address] 29 Jul, 2012 [facility] [address] [id number] [address] [place] [address] [address] 15 Jul, 2012 [facility] [address] [id number] [address] [place] [address], [place] [address] 08 Jul, 2012 [facility] [address] [id number] [address] [place] [address], [place] [address] 20 Jun, 2012 [facility] [address] [id number] [address] [place] [address], [place] [address] 18 Jun, 2012 [facility] [address] [id number] [address] [place] [address], [place] [address] 18 Jun, 2012 [facility] [address] [id number] [address] [place] [address], [place] [address] 18 Jun, 2012 [facility] [address] [id number] [address] [place] [address], [place] [address] 18 Jun, 2012 [facility] [address] [id number] [address] [place] [address], [place] [address] 14 Jun, 2012 [facility] [address] [id number] [address] [place] [address], [place] [address] 14 Jun, 2012 [facility] [address] [id number] [address] [place] [address], [place] [address] 13 Jun, 2012 [facility] [address] [id number] [address] [place] [address], [place] [address] 13 Jun, 2012 [facility] [address] [id number] [address] [place] [address], [place] [address] 11 Jun, 2012 [facility] [address] [id number] [address] [place] [address], [place] [address] 11 Jun, 2012 [facility] [address] [id number] [address] [place] [address], [place] [address] 11 Jun, 2012 [facility] [address] [id number] [address] [place] [address], [place] [address] 11 Jun, 2012 [facility] [address] [id number] [address] [place] [address], [place] [address] 07 Jun, 2012 [facility] [address] [id number] [address] [place] [address], [place] [address] 07 Jun, 2012 [facility] [address] [id number] [address] [place] [address], [place] [address] Jun, [facility] [address] [id number] [address] [place] [address], [place] [address] Jun, [facility] [address] [id number] [address] [place] [address], [place] [address] Jun, [facility] [address] [id number] [address] [place] [address], [place] [address] Jun, [facility] [address] [id number] [address] [place] [address], [place] [address] Jun, [facility] [address] [id number] [address] [place] [address], [place] [address] Jun, [facility] [address] [id number] [address] [place] [address], [place] [address] Jun, [facility] [address] [id number] [address] [place] [address], [place] [address] Jun, [facility] [address] [id number] [address] [place] [address], [place] [address] May, [facility] [address] [id number] [address] [place] [address], [place] [address] May, [facility] [address] [id number] [address] [place] [address], [place] [address] May, [facility] [address] [id number] [address] [place] [address], [place] [address] May, [facility] [address] [id number] [address] [place] [address], [place] [address] May, [facility] [address] [id number] [address] [place] [address], [place] [address] May, [facility] [address] [id number] [address] [place] [address], [place] [address] May, [facility] [address] [id number] [address] [place] [address], [place] [address] May, [facility] [address] [id number] [address] [place] [address], [place] [address] Apr, [facility] [address] [id number] [address] [place] [address], [place] [address] Apr, [facility] [address] [id number] [address] [place] [address], [place] [address] Apr, [facility] [address] [id number] [address] [place] [address], [place] [address] Apr, [facility] [address] [id number] [address] [place] [address], [place] [address] Apr, [facility] [address] [id number] [address] [place] [address], [place] [address] Apr, [facility] [address] [id number] [address] [place] [address], [place] [address] Apr, [facility] [address] [id number] [address] [place] [address], [place] [address] Apr, [facility] [address] [id number] [address] [place] [address], [place] [address] Apr, [facility] [address] [id number] [address] [place] [address], [place] [address] Apr, [facility] [address] [id number] [address] [place] [address], [place] [address] Apr, [facility] [address] [id number] [address] [place] [address], [place] [address] Apr, [facility] [address] [id number] [address] [place] [address], [place] [address] Mar, [facility] [address] [id number] [address] [place] [address], [place] [address] 18 Mar, 2012 [facility] [address] [id number] [address] [place] [address] Mar, [facility] [address] [id number] [address] [place] [id number] Mar, [facility] [address] [id number] [address] [place] [address] [id number] Mar, [facility] [address] [id number] [address] [place] [id number] Mar, [facility] [address] [id number] [address] [place] [address] Mar, [facility] [address] [id number] [address] [place] [address], [place] [address] Jan, [facility] [address] [id number] [address] [place] [id number] Jan, [facility] [address] [id number] [address] [place] [address] [id number] Jan, [facility] [address] [id number] [address] [place] [id number] Jan, [facility] [address] [id number] [address] [place] [address], [place] [address] Jan, [facility] [address] [id number] [address] [place] [address] Jan, [facility] [address] [id number] [address] [place] [address] Jan, [facility] [address] [id number] [address] [place] [address] Jan, [facility] [address] [id number] [address] [place] [address], [place] [address] Jan, [facility] [address] [id number] [address] [place] [address], [place] [address] Jan, [facility] [address] [id number] [address] [place] [id number] Jan, [facility] [address] [id number] [facility] [place] [address] 28 Jan, 2012 [facility] [address] [id number] [address] [place] [address], [place] [address] 27 Jan, 2012 [facility] [address] [id number] [address] [place] [address], [place] [address] 26 Jan, 2012 [facility] [address] [id number] [address] [place] [address], [place] [address] 26 Dec, 2011 [facility] [address] [id number] [address] [place] [address], [place] [address] 20 Jan, 2012 [facility] [address] [id number] [address] [place] [address], [place] [address] 19 Jan, 2012 [facility] [address] [id number] [address] [place] [address], [place] [address] 18 Jan, 2012 [facility] [address] [id number] [address] [place] [address], [place] [address] 17 Jan, 2012 [facility] [address] [id number] [address] [place] [address], [place] [address] 16 Jan, 2012 [facility] [address] [id number] [address] [place] [address], [place] [address] Dec, [facility] [address] [id number] [address] [place] [address], [place] [address] 13 Jan, 2012 [facility] [address] [id number] [address] [place] [address], [place] [address] 02 Jan, 2012 [facility] [address] [id number] [address] [place] [address], [place] [address] Dec, [facility] [address] [id number] [address] [place] [address], [place] [address] Dec, [facility] [address] [id number] [address] [place] [address], [place] [address] Dec, [facility] [address] [id number] [address] [place] [address], [place] [address] Dec, [facility] [address] [id number] [address] [place] [address], [place] [address] Dec, [facility] [address] [id number] [address] [place] [address], [place] [address] Dec, [facility] [address] [id number] [address] [place] [address], [place] [address] Dec, [facility] [address] [id number] [address] [place] [address], [place] [address] October, [facility] [address] [id number] [address] [place] [address], [place] [address] October, [facility] [address] [id number] [address] [place] [address], [place] [address] October, [facility] [address] [id number] [address] [place] [address], [place] [address] October, [facility] [address] [id number] [address] [place] [address], [place] [address] October, [facility] [address] [id number] [address] [place] [address], [place] [address] October, [facility] [address] [id number] [address] [place] [address], [place] [address] Oct, [facility] [address] [id number] [address] [place] [address], [place] [address] Oct, [facility] [address] [id number] [address] [place] [address], [place] [address] Oct, [facility] [address] [id number] [address] [place] [address], [place] [address] Oct, [facility] [address] [id number] [address] [place] [address], [place] [address] Oct, [facility] [address] [id number] [address] [place] [address], [place] [address] Oct, [facility] [address] [id number] [address] [place] [address], [place] [address] 02 Oct, 2011 [facility] [address] [id number] [address] [place] [address], [place] [address] 29 Sep, 2011 [facility] [address] [id number] [address] [place] [address], [place] [address] 29 Sep, 2011 [facility] [address] [id number] [address] [place] [address], [place] [address] 19 Sep, 2011 [facility] [address] [id number] [address] [place] [address], [place] [address] 13 Sep, 2011 [facility] [address] [id number] [address] [place] [address], [place] [address] 05 Sep, 2011 [facility] [address] [id number] [address] [place] [address], [place] [address] 05 Sep, 2011 [facility] [address] [id number] [address] [place] [address], [place] [address] 27 Aug, 2011 [facility] [address] [id number] [address] [place] [address], [place] [address] Aug, [facility] [address] [id number] [address] [place] [address], [place] [address] 08 Aug, 2011 [facility] [address] [id number] [address] [place] [address], [place] [address] Jul, [facility] [address] [id number] [address] [place] [address], [place] [address] Jul, [facility] [address] [id number] [address] [place] [address], [place] [address] Jul, [facility] [address] [id number] [address] [place] [address], [place] [address] 10 Jul, 2011 [facility] [address] [id number] [address] [place] [address], [place] [address] 28 Jun, 2011 [facility] [address] [id number] [address] [place] [address], [place] [address] Jun, [facility] [address] [id number] [address] [place] [address], [place] [address] May, [facility] [address] [id number] [address] [place] [address], [place] [address] May, [facility] [address] [id number] [address] [place] [address], [place] [address] May, [facility] [address] [id number] [address] [place] [address], [place] [address] May, [facility] [address] [id number] [address] [place] [address], [place] [address] May, [facility] [address] [id number] [address] [place] [address], [place] [address] Apr, [facility] [address] [id number] [address] [place] [address], [place] [address] Apr, [facility] [address] [id number] [address] [place] [address], [place] [address] Apr, [facility] [address] [id number] [address] [place] [address], [place] [address] Jan, [facility] [address] [id number] [address] [place] [address], [place] [address] Dec, [facility] [address] [id number] [address] [place] [address], [place] [address] October, [facility] [address] [id number] [address] [place] [address], [place] [address] Jun, [facility] [address] [id number] [address] [place] [address], [place] [address] 23 Apr, 2009 [facility] [address] [id number] [address] [place] [address], [place] [address] Apr, [facility] [address] [id number] [address] [place] [address], [place] [address] Apr, [facility] [address] [id number] [address] [place] [address], [place] [address] Jun, IMMUNIZATIONS No Known Immunizations SOCIAL HISTORY [...]
--- OUTSIDE RECORDS SUMMARY | 2020-01-25 12:39 | XMS REPORT ---
Author Author Ana Iraheta Organization [facility] Address [address] [place] [address] Care Team Providers Care Java Architect Name Role Phone Esequiel MELISA Unavailable PROBLEMS Type Condition ICD9-CM Code TPT56-WH Code Onset Dates Condition S tatus SNOMED Code Problem Attention deficit R41.840 Active 76 910958 Problem Chronic hepatitis C without hepatic coma B18.2 Active 883252592 Problem Cannabis abuse F12.10 Active 11225 009 Problem Bipolar disorder, in partial remission, most rec ent episode hypomanic F31.71 Active 822684279 Problem Attention deficit hyperactivity disorder (ADHD), combi luciano type F90.2 Active 76711616 Problem Bipolar 1 disorder F31.9 Active 3 70364743 Problem H/O laminectomy Z98.89 Active 1616 32664 Problem Other chronic pain G89.29 Active 8 8592302 Problem Anxiety disorder, unspecified type F41.9 Active [id number] ALLERGIES No Information ENCOUNTERS Encounter Location Date Diagnosis [place] [id number] [facility] [id number] [address] [place] [phone] Dec, Other chronic pain G89.29 an d Low back pain M54.5 [facility] [address] [facility] [id number] [address] [place] [phone] October, [facility] [address] [facility] [id number] [address] [place] [phone] October, [facility] [address] [facility] [id number] [address] [place] [phone] October, [facility] [address] [facility] [id number] [address] [place] [phone] October, Other chronic pain G89.29 an d Chronic hepatitis C without hepatic coma B18.2 [facility] [address] [id number] [address] [place] [phone] Aug, Bipolar disorder, in partial remission, most recent episode hypomanic F31.71 ; Attention deficit hyperactivity disorder (ADHD), combined type F90.2 and Anxiety disorder, unspecified type F41.9 [facility] [address] [id number] [address] [place] [phone] Aug, [facility] [address] [id number] [address] [place] [phone] Aug, Bipolar disorder, in partial remission, most recent episode hypomanic F31.71 [facility] [address] [id number] [address] [place] [phone] Aug, [facility] [address] [id number] [address] [place] [phone] Aug, Bipolar disorder, in partial remission, most recent episode hypomanic F31.71 [facility] [address] [id number] [address] [place] [phone] Aug, Bipolar disorder, in partial remission, most recent episode hypomanic F31.71 ; Attention deficit hyperactivity disorder (ADHD), combined type F90.2 and Anxiety disorder, unspecified type F41.9 [facility] [address] [id number] [address] [place] [phone] Aug, Low back pain M54.5 and Pain in left wrist M25.532 [facility] [address] [id number] [address] [place] [phone] Aug, [facility] [address] [id number] [address] [place] [phone] Jun, [facility] [address] [id number] [address] [place] [phone] Apr, Bipolar disorder, in partial remission, most recent episode hypomanic F31.71 [facility] [address] [id number] [address] [place] [phone] Apr, [facility] [address] [id number] [address] [place] [phone] Apr, Bipolar disorder, in partial remission, most recent episode hypomanic F31.71 ; Attention deficit hyperactivity disorder (ADHD), combined type F90.2 ; Anxiety disorder, unspecified type F41.9 and Other usp (current) 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 Z79.899 [facility] [address] [id number] [address] [place] [phone] Apr, Bipolar disorder, in partial remission, most recent episode hypomanic F31.71 [facility] [address] [id number] [address] [place] [phone] Apr, Bipolar disorder, in partial remission, most recent episode hypomanic F31.71 [facility] [address] [id number] [address] [place] [phone] Mar, [facility] [address] [id number] [address] [place] [phone] Mar, Bipolar disorder, in partial remission, most recent episode hypomanic F31.71 ; Encounter for immunization Z23 and Low back pain M54.5 [facility] [address] [id number] [address] [place] [phone] Mar, Bipolar disorder, in partial remission, most recent episode hypomanic F31.71 [facility] [address] [id number] [address] [place] [phone] Mar, Bipolar disorder, in partial remission, most recent episode hypomanic F31.71 [facility] [address] [id number] [address] [place] [phone] Jan, Bipolar disorder, in partial remission, most recent episode hypomanic F31.71 [facility] [address] [id number] [address] [place] [phone] Jan, Bipolar disorder, in partial remission, most recent episode hypomanic F31.71 [facility] [address] [id number] [address] [place] [phone] Dec, Bipolar disorder, in partial remission, most recent episode hypomanic F31.71 [facility] [address] [id number] [address] [place] [phone] Dec, Bipolar disorder, in partial remission, most recent episode hypomanic F31.71 ; Attention deficit hyperactivity disorder (ADHD), combined type F90.2 ; Anxiety disorder, unspecified type F41.9 and Other manager terminal (current) 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 Z79.899 [facility] [address] [id number] [address] [place] [phone] Dec, Bipolar disorder, in partial remission, most recent episode hypomanic F31.71 [facility] [address] [id number] [address] [place] [phone] Dec, Bipolar disorder, in partial remission, most recent episode hypomanic F31.71 [facility] [address] [id number] [address] [place] [phone] October, Bipolar disorder, in partial remission, most recent episode hypomanic F31.71 [facility] [address] [id number] [address] [place] [phone] October, [facility] [address] [id number] [address] [place] [phone] October, [facility] [address] [id number] [address] [place] [phone] Oct, Bipolar disorder, in partial remission, most recent episode hypomanic F31.71 ; Attention deficit hyperactivity disorder (ADHD), combined type F90.2 ; Anxiety disorder, unspecified type F41.9 and Encounter for drug screening Z02.83 [facility] [address] [id number] [address] [place] [phone] Oct, Bipolar disorder, in partial remission, most recent episode hypomanic F31.71 [facility] [address] [id number] [address] [place] [phone] Oct, Bipolar disorder, in partial remission, most recent episode hypomanic F31.71 [facility] [address] [id number] [address] [place] [phone] Aug, Bipolar disorder, in partial remission, most recent episode hypomanic F31.71 [facility] [address] [id number] [address] [place] [phone] 15 Aug, 2017 Bipolar disorder, in partial remission, most recent episode hypomanic F31.71 [facility] [address] [id number] [address] [place] [phone] Aug, Bipolar disorder, in partial remission, most recent episode hypomanic F31.71 [facility] [address] [id number] [address] [place] [phone] Jul, Bipolar disorder, in partial remission, most recent episode hypomanic F31.71 ; Attention deficit hyperactivity disorder (ADHD), combined type F90.2 and Anxiety disorder, unspecified type F41.9 [facility] [address] [facility] [id number] [address] [place] [phone] Jul, Bipolar disorder, in partial remission, most recent episode hypomanic F31.71 [facility] [address] [facility] [id number] [address] [place] [phone] Jun, Bipolar disorder, in partial remission, most recent episode hypomanic F31.71 [facility] [address] [id number] [address] [place] [phone] May, Bipolar disorder, in partial remission, most recent episode hypomanic F31.71 [facility] [address] [facility] [id number] [address] [place] [phone] May, Bipolar disorder, in partial remission, most recent episode hypomanic F31.71 [facility] [address] [facility] [id number] [address] [place] [phone] Apr, [facility] [address] [facility] [id number] [address] [place] [phone] Apr, Bipolar disorder, in partial remission, most recent episode hypomanic F31.71 ; Attention deficit hyperactivity disorder (ADHD), combined type F90.2 ; Anxiety disorder, unspecified type F41.9 and Cannabis abuse F12.10 [facility] [address] [id number] [address] [place] [phone] 13 Apr, 2017 Attention deficit hyperactiv ity disorder (ADHD), combined type F90.2 [facility] [address] [id number] [address] [place] [phone] Mar, Attention deficit hyperactiv ity disorder (ADHD), combined type F90.2 [facility] [address] [id number] [address] [place] [phone] 14 Mar, 2017 Anxiety disorder, unspecifie d type F41.9 [facility] [address] [id number] [address] [place] [phone] 18 Jan, 2017 Attention deficit hyperactiv ity disorder (ADHD), combined type F90.2 [facility] [address] [facility] [id number] [address] [place] [phone] Jan, Anxiety disorder, unspecifie d type F41.9 [facility] [address] [facility] [id number] [address] [place] [phone] Jan, Other chronic pain G89.29 ; Chronic hepatitis C without hepatic coma B18.2 and Bipolar 1 disorder F31.9 [facility] [address] [facility] [id number] [address] [place] [phone] Dec, Attention deficit hyperactiv ity disorder (ADHD), combined type F90.2 [facility] [address] [facility] [id number] [address] [place] [phone] 24 Dec, 2016 Bipolar disorder, in partial remission, most recent episode hypomanic F31.71 ; Attention deficit hyperactivity disorder (ADHD), combined type F90.2 and Anxiety disorder, unspecified type F41.9 [facility] [address] [facility] [id number] [address] [place] [phone] Dec, Bipolar disorder, in partial remission, most recent episode hypomanic F31.71 ; Attention deficit hyperactivity disorder (ADHD), combined type F90.2 and Anxiety disorder, unspecified type F41.9 [facility] [address] [id number] [address] [place] [phone] Dec, Bipolar 1 disorder F31.9 and Attention deficit R41.840 [facility] [address] [facility] [id number] [address] [place] [phone] Oct, Other chronic pain G89.29 ; Alopecia L65.9 and Screening, lipid Z13.220 [facility] [address] [place] [id number] [address] [place] [phone] Oct, [facility] [address] [place] [id number] [address] [place] [phone] Aug, [facility] [address] [place] [id number] [address] [place] [phone] Aug, Eustachian tube dysfunction, right H69.81 ; Vertigo R42 and Other chronic pain G89.29 [facility] [address] [place] [id number] [address] [place] [phone] Aug, [facility] [address] [place] [id number] [address] [place] [phone] Jun, [facility] [address] [place] [id number] [address] [place] [phone] Jun, Low back pain M54.5 and Othe r chronic pain G89.29 [facility] [address] [place] [id number] [address] [place] [phone] Jun, [facility] [address] [facility] [id number] [address] [place] [phone] May, [facility] [address] [place] [id number] [address] [place] [phone] Jan, [facility] [address] [place] [id number] [address] [place] [phone] Dec, [facility] [address] [place] [id number] [address] [place] [phone] Dec, [facility] [address] [facility] [id number] [address] [place] [phone] Jun, [facility] [address] [facility] [id number] [address] [place] [phone] Apr, Eustachian tube dysfunction, unspecified laterality H69.80 ; Hot flashes N95.1 and Encounter for immunization Z23 [facility] [address] [facility] [id number] [address] [place] [phone] Jan, [facility] [address] [facility] [id number] [address] [place] [phone] Jan, [facility] [address] [facility] [id number] [address] [place] [phone] Jan, [facility] [address] [place] [id number] [address] [place] [phone] Jan, [facility] [address] [place] [id number] [place] [phone] Jan, Encounter to establish care V65.8 ; Bipolar 1 disorder 296.7 ; Abdominal pain 789.00 ; Constipation 564.00 ; Hard of hearing 389.9 and Drug abuse 305.90 [facility] [address] [facility] [id number] [address] [place] [phone] Dec, [facility] [address] [facility] [id number] [address] [place] [phone] October, [facility] [address] [facility] [id number] [address] [place] [phone] October, [facility] [address] [facility] [id number] [address] [place] [phone] Oct, [facility] [address] [facility] [id number] [address] [place] [phone] Oct, [facility] [address] [facility] [id number] [address] [place] [phone] Oct, [facility] [address] [id number] [address] [place] [address], [place] [address] Aug, [facility] [address] [id number] [address] [place] [address], [place] [address] Aug, 2014 [facility] [address] [id number] [address] [place] [address], [place] [address] Aug, 2014 [facility] [address] [id number] [address] [place] [address], [place] [address] Aug, 2014 [facility] [address] [id number] [address] [place] [address], [place] [address] Aug, 2014 [facility] [address] [id number] [address] [place] [address], [place] [address] Aug, 2014 [facility] [address] [id number] [address] [place] [address], [place] [address] Aug, 2014 [facility] [address] [id number] [address] [place] [address], [place] [address] Aug, 2014 [facility] [address] [id number] [address] [place] [address], [place] [address] Aug, 2014 [facility] [address] [id number] [address] [place] [address], [place] [address] Aug, 2014 [facility] [address] [id number] [address] [place] [address], [place] [address] Aug, 2014 [facility] [address] [id number] [address] [place] [address], [place] [address] Aug, 2014 [facility] [address] [id number] [address] [place] [address], [place] [address] Aug, 2014 [facility] [address] [id number] [address] [place] [address], [place] [address] Aug, 2014 [facility] [address] [id number] [address] [place] [address], [place] [address] Aug, 2014 [facility] [address] [id number] [address] [place] [address], [place] [address] Jul, [facility] [address] [id number] [address] [place] [address], [place] [address] Jul, [facility] [address] [id number] [address] [place] [address], [place] [address] Jul, [facility] [address] [id number] [address] [place] [address], [place] [address] Jul, [facility] [address] [id number] [address] [place] [address], [place] [address] Jul, [facility] [address] [id number] [address] [place] [address], [place] [address] Jul, [facility] [address] [id number] [address] [place] [address], [place] [address] Jul, [facility] [address] [id number] [address] [place] [address], [place] [address] Jul, [facility] [address] [id number] [address] [place] [address], [place] [address] Jun, [facility] [address] [id number] [address] [place] [address], [place] [address] Jun, [facility] [address] [id number] [address] [place] [address], [place] [address] Jun, [facility] [address] [id number] [address] [place] [address], [place] [address] 29 Jun, 2014 [facility] [address] [id number] [address] [place] [address], [place] [address] 18 Jun, 2014 [facility] [address] [id number] [address] [place] [address], [place] [address] Jun, [facility] [address] [id number] [address] [place] [address], [place] [address] Jun, [facility] [address] [id number] [address] [place] [address], [place] [address] Jun, [facility] [address] [id number] [address] [place] [address], [place] [address] Jun, [facility] [address] [id number] [address] [place] [address], [place] [address] Jun, [facility] [address] [id number] [address] [place] [address], [place] [address] Jun, [facility] [address] [id number] [address] [place] [address], [place] [address] May, [facility] [address] [id number] [address] [place] [address], [place] [address] May, [facility] [address] [id number] [address] [place] [address], [place] [address] May, [facility] [address] [id number] [address] [place] [address], [place] [address] May, [facility] [address] [id number] [address] [place] [address], [place] [address] May, [facility] [address] [id number] [address] [place] [address], [place] [address] May, [facility] [address] [id number] [address] [place] [address], [place] [address] May, [facility] [address] [id number] [address] [place] [address], [place] [address] Apr, [facility] [address] [id number] [address] [place] [address], [place] [address] Apr, [facility] [address] [id number] [address] [place] [address], [place] [address] Apr, [facility] [address] [id number] [address] [place] [address], [place] [address] Apr, [facility] [address] [id number] [address] [place] [address], [place] [address] Apr, [facility] [address] [id number] [address] [place] [address], [place] [address] Apr, [facility] [address] [id number] [address] [place] [address], [place] [address] Mar, [facility] [address] [id number] [address] [place] [address], [place] [address] Mar, [facility] [address] [id number] [address] [place] [address], [place] [address] Mar, [facility] [address] [id number] [address] [place] [address], [place] [address] Mar, [facility] [address] [id number] [address] [place] [address], [place] [address] Mar, [facility] [address] [id number] [address] [place] [address], [place] [address] Mar, [facility] [address] [id number] [address] [place] [address], [place] [address] Jan, [facility] [address] [id number] [address] [place] [address], [place] [address] Jan, [facility] [address] [id number] [address] [place] [address], [place] [address] Jan, [facility] [address] [id number] [address] [place] [address], [place] [address] Jan, [facility] [address] [id number] [address] [place] [address], [place] [address] Dec, [facility] [address] [id number] [address] [place] [address], [place] [address] Dec, [facility] [address] [id number] [address] [place] [address], [place] [address] Dec, [facility] [address] [id number] [address] [place] [address], [place] [address] Dec, [facility] [address] [id number] [address] [place] [address], [place] [address] Dec, [facility] [address] [id number] [address] [place] [address], [place] [address] Dec, [facility] [address] [id number] [address] [place] [address], [place] [address] Dec, [facility] [address] [id number] [address] [place] [address], [place] [address] Dec, [facility] [address] [id number] [address] [place] [address], [place] [address] Dec, [facility] [address] [id number] [address] [place] [address], [place] [address] Dec, [facility] [address] [id number] [address] [place] [address], [place] [address] Dec, [facility] [address] [id number] [address] [place] [address], [place] [address] Dec, [facility] [address] [id number] [address] [place] [address], [place] [address] October, [facility] [address] [id number] [address] [place] [address], [place] [address] October, [facility] [address] [id number] [address] [place] [address], [place] [address] October, [facility] [address] [id number] [address] [place] [address], [place] [address] October, [facility] [address] [id number] [address] [place] [address], [place] [address] October, [facility] [address] [id number] [address] [place] [address], [place] [address] October, [facility] [address] [id number] [address] [place] [address], [place] [address] Oct, [facility] [address] [id number] [address] [place] [address], [place] [address] Oct, [facility] [address] [id number] [address] [place] [address], [place] [address] Oct, [facility] [address] [id number] [facility] [place] [address] Oct, [facility] [address] [id number] [facility] [place] [address] Oct, [facility] [address] [id number] [facility] [place] [address] Oct, [facility] [address] [id number] [address] [place] [address], [place] [address] Oct, [facility] [address] [id number] [facility] [place] [address] Oct, [facility] [address] [id number] [address] [place] [address], [place] [address] Oct, [facility] [address] [id number] [address] [place] [address], [place] [address] Oct, [facility] [address] [id number] [address] [place] [address], [place] [address] Oct, [facility] [address] [id number] [address] [place] [address], [place] [address] Oct, [facility] [address] [id number] [address] [place] [address], [place] [address] Aug, [facility] [address] [id number] [address] [place] [address], [place] [address] 15 Aug, 2013 [facility] [address] [id number] [address] [place] [address], [place] [address] Aug, [facility] [address] [id number] [address] [place] [address], [place] [address] Aug, [facility] [address] [id number] [address] [place] [address], [place] [address] 05 Aug, 2013 [facility] [address] [id number] [address] [place] [address], [place] [address] 05 Aug, 2013 [facility] [address] [id number] [address] [place] [address], [place] [address] Aug, [facility] [address] [id number] [facility] [place] [address] Aug, [facility] [address] [id number] [address] [place] [address], [place] [address] Aug, [facility] [address] [id number] [address] [place] [address], [place] [address] Aug, [facility] [address] [id number] [address] [place] [address], [place] [address] Aug, [facility] [address] [id number] [address] [place] [address], [place] [address] Aug, [facility] [address] [id number] [address] [place] [address], [place] [address] Aug, [facility] [address] [id number] [address] [place] [address], [place] [address] 20 Aug, 2013 [facility] [address] [id number] [address] [place] [address], [place] [address] 14 Aug, 2013 [facility] [address] [id number] [address] [place] [address], [place] [address] Aug, [facility] [address] [id number] [address] [place] [address], [place] [address] Aug, [facility] [address] [id number] [address] [place] [address], [place] [address] Aug, [facility] [address] [id number] [address] [place] [address], [place] [address] 07 Aug, 2013 [facility] [address] [id number] [address] [place] [address], [place] [address] 07 Aug, 2013 [facility] [address] [id number] [address] [place] [address], [place] [address] 06 Aug, 2013 [facility] [address] [id number] [address] [place] [address], [place] [address] Aug, [facility] [address] [id number] [address] [place] [address], [place] [address] Aug, [facility] [address] [id number] [address] [place] [address], [place] [address] Aug, [facility] [address] [id number] [address] [place] [address], [place] [address] Aug, [facility] [address] [id number] [address] [place] [address], [place] [address] Jul, [facility] [address] [id number] [address] [place] [address], [place] [address] Jul, [facility] [address] [id number] [address] [place] [address], [place] [address] Jul, [facility] [address] [id number] [address] [place] [address], [place] [address] Jul, [facility] [address] [id number] [address] [place] [address], [place] [address] Jul, [facility] [address] [id number] [address] [place] [address], [place] [address] Jul, [facility] [address] [id number] [address] [place] [address], [place] [address] Jul, [facility] [address] [id number] [address] [place] [address], [place] [address] Jul, [facility] [address] [id number] [address] [place] [address], [place] [address] Jul, [facility] [address] [id number] [address] [place] [address], [place] [address] Jul, [facility] [address] [id number] [address] [place] [address], [place] [address] Jul, [facility] [address] [id number] [address] [place] [address], [place] [address] Jul, [facility] [address] [id number] [address] [place] [address], [place] [address] Jul, [facility] [address] [id number] [address] [place] [address], [place] [address] Jul, [facility] [address] [id number] [address] [place] [address], [place] [address] Jul, [facility] [address] [id number] [address] [place] [address], [place] [address] Jul, [facility] [address] [id number] [address] [place] [address], [place] [address] Jul, [facility] [address] [id number] [address] [place] [address], [place] [address] Jul, [facility] [address] [id number] [address] [place] [address], [place] [address] Jul, [facility] [address] [id number] [address] [place] [address], [place] [address] Jul, [facility] [address] [id number] [address] [place] [address], [place] [address] Jun, [facility] [address] [id number] [address] [place] [address], [place] [address] Jun, [facility] [address] [id number] [address] [place] [address], [place] [address] Jun, [facility] [address] [id number] [address] [place] [address], [place] [address] Jun, [facility] [address] [id number] [address] [place] [address], [place] [address] Jun, [facility] [address] [id number] [address] [place] [address], [place] [address] Jun, [facility] [address] [id number] [address] [place] [address], [place] [address] Jun, [facility] [address] [id number] [address] [place] [address], [place] [address] Jun, [facility] [address] [id number] [address] [place] [address], [place] [address] 24 Jun, 2013 [facility] [address] [id number] [address] [place] [address], [place] [address] Jun, [facility] [address] [id number] [address] [place] [address], [place] [address] Jun, [facility] [address] [id number] [address] [place] [address], [place] [address] Jun, [facility] [address] [id number] [address] [place] [address], [place] [address] Jun, [facility] [address] [id number] [address] [place] [address], [place] [address] Jun, [facility] [address] [id number] [address] [place] [address], [place] [address] Jun, [facility] [address] [id number] [address] [place] [address], [place] [address] Jun, [facility] [address] [id number] [address] [place] [address], [place] [address] 18 Jun, 2013 [facility] [address] [id number] [address] [place] [address], [place] [address] Jun, [facility] [address] [id number] [address] [place] [address], [place] [address] 17 Jun, 2013 [facility] [address] [id number] [address] [place] [address], [place] [address] 13 Jun, 2013 [facility] [address] [id number] [address] [place] [address], [place] [address] 12 Jun, 2013 [facility] [address] [id number] [address] [place] [address], [place] [address] Jun, [facility] [address] [id number] [address] [place] [address], [place] [address] 09 Jun, 2013 [facility] [address] [id number] [address] [place] [address], [place] [address] Jun, [facility] [address] [id number] [address] [place] [address], [place] [address] Jun, [facility] [address] [id number] [address] [place] [address], [place] [address] Jun, [facility] [address] [id number] [address] [place] [address], [place] [address] Jun, [facility] [address] [id number] [address] [place] [address], [place] [address] May, [facility] [address] [id number] [address] [place] [address], [place] [address] May, [facility] [address] [id number] [address] [place] [address], [place] [address] May, [facility] [address] [id number] [address] [place] [address], [place] [address] May, [facility] [address] [id number] [address] [place] [address] May, [facility] [address] [id number] [address] [place] [address], [place] [address] May, [facility] [address] [id number] [address] [place] [address] Apr, [facility] [address] [id number] [address] [place] [address] Apr, [facility] [address] [id number] [address] [place] [address] 30 Apr, 2013 [facility] [address] [id number] [address] [place] [address], [place] [address] 30 Apr, 2013 [facility] [address] [id number] [address] [place] [address] Apr, [facility] [address] [id number] [address] [place] [address] 15 Apr, 2013 [facility] [address] [id number] [address] [place] [address], [place] [address] 15 Apr, 2013 [facility] [address] [id number] [address] [place] [address], [place] [address] 01 Apr, 2013 [facility] [address] [id number] [address] [place] [address], [place] [address] 26 Mar, 2012 [facility] [address] [id number] [address] [place] [address], [place] [address] 24 Mar, 2012 [facility] [address] [id number] [address] [place] [address], [place] [address] 17 Mar, 2012 [facility] [address] [id number] [address] [place] [address], [place] [address] 17 Mar, 2012 [facility] [address] [id number] [address] [place] [address], [place] [address] 11 Mar, 2013 [facility] [address] [id number] [address] [place] [address], [place] [address] 10 Mar, 2012 [facility] [address] [id number] [address] [place] [address], [place] [address] 05 Mar, 2013 [facility] [address] [id number] [address] [place] [address], [place] [address] 04 Mar, 2013 [facility] [address] [id number] [address] [place] [address], [place] [address] 20 Jan, 2013 [facility] [address] [id number] [address] [place] [address], [place] [address] Jan, [facility] [address] [id number] [address] [place] [address], [place] [address] 14 Jan, 2013 [facility] [address] [id number] [address] [place] [address], [place] [address] 12 Jan, 2013 [facility] [address] [id number] [address] [place] [address], [place] [address] Jan, [facility] [address] [id number] [address] [place] [address], [place] [address] 05 Jan, 2013 [facility] [address] [id number] [facility] [place] [address] 31 Dec, 2012 [facility] [address] [id number] [address] [place] [address], [place] [address] 24 Dec, 2012 [facility] [address] [id number] [address] [place] [address], [place] [address] 22 Dec, 2012 [facility] [address] [id number] [address] [place] [address], [place] [address] 19 Dec, 2012 [facility] [address] [id number] [address] [place] [address], [place] [address] 18 Dec, 2012 [facility] [address] [id number] [address] [place] [address], [place] [address] 17 Dec, 2012 [facility] [address] [id number] [address] [place] [address], [place] [address] 16 Dec, 2012 [facility] [address] [id number] [address] [place] [address], [place] [address] 16 Dec, 2012 [facility] [address] [id number] [address] [place] [address], [place] [address] 15 Dec, 2012 [facility] [address] [id number] [address] [place] [address], [place] [address] 10 Dec, 2012 [facility] [address] [id number] [address] [place] [address], [place] [address] 28 Dec, 2012 [facility] [address] [id number] [address] [place] [address], [place] [address] 25 Dec, 2012 [facility] [address] [id number] [address] [place] [address], [place] [address] 19 Dec, 2012 [facility] [address] [id number] [address] [place] [address], [place] [address] 17 Dec, 2012 [facility] [address] [id number] [address] [place] [address], [place] [address] 13 Dec, 2012 [facility] [address] [id number] [address] [place] [address], [place] [address] Dec, [facility] [address] [id number] [address] [place] [address], [place] [address] October, [facility] [address] [id number] [address] [place] [address], [place] [address] October, [facility] [address] [id number] [address] [place] [address], [place] [address] October, [facility] [address] [id number] [address] [place] [address], [place] [address] October, [facility] [address] [id number] [address] [place] [address], [place] [address] October, [facility] [address] [id number] [address] [place] [address], [place] [address] October, [facility] [address] [id number] [address] [place] [address], [place] [address] October, [facility] [address] [id number] [address] [place] [address], [place] [address] Oct, [facility] [address] [id number] [address] [place] [address], [place] [address] Oct, [facility] [address] [id number] [address] [place] [address], [place] [address] Oct, [facility] [address] [id number] [address] [place] [address], [place] [address] Oct, [facility] [address] [id number] [address] [place] [address], [place] [address] Oct, [facility] [address] [id number] [address] [place] [address], [place] [address] 18 Oct, 2012 [facility] [address] [id number] [address] [place] [address], [place] [address] 17 Oct, 2012 [facility] [address] [id number] [address] [place] [address], [place] [address] 15 Oct, 2012 [facility] [address] [id number] [address] [place] [address], [place] [address] Oct, [facility] [address] [id number] [address] [place] [address], [place] [address] Oct, [facility] [address] [id number] [address] [place] [address], [place] [address] Oct, [facility] [address] [id number] [address] [place] [address], [place] [address] Oct, [facility] [address] [id number] [address] [place] [address], [place] [address] Aug, [facility] [address] [id number] [address] [place] [address], [place] [address] Aug, [facility] [address] [id number] [address] [place] [address], [place] [address] Aug, [facility] [address] [id number] [address] [place] [address], [place] [address] Aug, [facility] [address] [id number] [address] [place] [address], [place] [address] Aug, [facility] [address] [id number] [address] [place] [address], [place] [address] Aug, [facility] [address] [id number] [address] [place] [address], [place] [address] Aug, [facility] [address] [id number] [address] [place] [address], [place] [address] 14 Aug, 2012 [facility] [address] [id number] [address] [place] [address], [place] [address] Aug, [facility] [address] [id number] [address] [place] [address], [place] [address] Aug, [facility] [address] [id number] [address] [place] [address], [place] [address] 29 Jul, 2012 [facility] [address] [id number] [address] [place] [address], [place] [address] Jul, [facility] [address] [id number] [address] [place] [address], [place] [address] 08 Jul, 2012 [facility] [address] [id number] [address] [place] [address], [place] [address] 20 Jun, 2012 [facility] [address] [id number] [address] [place] [address], [place] [address] 18 Jun, 2012 [facility] [address] [id number] [address] [place] [address], [place] [address] 18 Jun, 2012 [facility] [address] [id number] [address] [place] [address], [place] [address] 18 Jun, 2012 [facility] [address] [id number] [address] [place] [address], [place] [address] 18 Jun, 2012 [facility] [address] [id number] [address] [place] [address], [place] [address] 14 Jun, 2012 [facility] [address] [id number] [address] [place] [address], [place] [address] 14 Jun, 2012 [facility] [address] [id number] [address] [place] [address], [place] [address] 13 Jun, 2012 [facility] [address] [id number] [address] [place] [address], [place] [address] 13 Jun, 2012 [facility] [address] [id number] [address] [place] [address], [place] [address] 11 Jun, 2012 [facility] [address] [id number] [address] [place] [address], [place] [address] 11 Jun, 2012 [facility] [address] [id number] [address] [place] [address], [place] [address] 11 Jun, 2012 [facility] [address] [id number] [address] [place] [address], [place] [address] 11 Jun, 2012 [facility] [address] [id number] [address] [place] [address], [place] [address] 07 Jun, 2012 [facility] [address] [id number] [address] [place] [address], [place] [address] 07 Jun, 2012 [facility] [address] [id number] [address] [place] [address], [place] [address] Jun, [facility] [address] [id number] [address] [place] [address], [place] [address] Jun, [facility] [address] [id number] [address] [place] [address], [place] [address] Jun, [facility] [address] [id number] [address] [place] [address], [place] [address] Jun, [facility] [address] [id number] [address] [place] [address], [place] [address] Jun, [facility] [address] [id number] [address] [place] [address], [place] [address] Jun, [facility] [address] [id number] [address] [place] [address], [place] [address] Jun, [facility] [address] [id number] [address] [place] [address], [place] [address] Jun, [facility] [address] [id number] [address] [place] [address], [place] [address] May, [facility] [address] [id number] [address] [place] [address], [place] [address] May, [facility] [address] [id number] [address] [place] [address], [place] [address] May, [facility] [address] [id number] [address] [place] [address], [place] [address] May, [facility] [address] [id number] [address] [place] [address], [place] [address] May, [facility] [address] [id number] [address] [place] [address], [place] [address] May, [facility] [address] [id number] [address] [place] [address], [place] [address] May, [facility] [address] [id number] [address] [place] [address], [place] [address] May, [facility] [address] [id number] [address] [place] [address], [place] [address] Apr, [facility] [address] [id number] [address] [place] [address], [place] [address] Apr, [facility] [address] [id number] [address] [place] [address], [place] [address] Apr, [facility] [address] [id number] [address] [place] [address], [place] [address] Apr, [facility] [address] [id number] [address] [place] [address], [place] [address] Apr, [facility] [address] [id number] [address] [place] [address], [place] [address] Apr, [facility] [address] [id number] [address] [place] [address], [place] [address] Apr, [facility] [address] [id number] [address] [place] [address], [place] [address] Apr, [facility] [address] [id number] [address] [place] [address], [place] [address] Apr, [facility] [address] [id number] [address] [place] [address], [place] [address] Apr, [facility] [address] [id number] [address] [place] [address], [place] [address] Apr, [facility] [address] [id number] [address] [place] [address], [place] [address] Apr, [facility] [address] [id number] [address] [place] [address], [place] [address] Mar, [facility] [address] [id number] [address] [place] [address], [place] [address] 18 Mar, 2012 [facility] [address] [id number] [address] [place] [id number] Mar, [facility] [address] [id number] [address] [place] [id number] Mar, [facility] [address] [id number] [address] [place] [id number] Mar, [facility] [address] [id number] [address] [place] [id number] Mar, [facility] [address] [id number] [address] [place] [id number] Mar, [facility] [address] [id number] [address] [place] [address], [place] [address] Jan, [facility] [address] [id number] [address] [place] [phone] Jan, [facility] [address] [id number] [address] [place] [id number] Jan, [facility] [address] [id number] [address] [place] [id number] Jan, [facility] [address] [id number] [address] [place] [address], [place] [address] Jan, [facility] [address] [id number] [address] [place] [id number] Jan, [facility] [address] [id number] [address] [place] [id number] Jan, [facility] [address] [id number] [address] [place] [id number] Jan, [facility] [address] [id number] [address] [place] [address], [place] [address] Jan, [facility] [address] [id number] [address] [place] [address], [place] [address] Jan, [facility] [address] [id number] [address] [place] [id number] Jan, [facility] [address] [id number] [address] [place] [address], [place] [address] 28 Jan, 2012 [facility] [address] [id number] [address] [place] [address], [place] [address] 27 Jan, 2012 [facility] [address] [id number] [address] [place] [address], [place] [address] 26 Jan, 2012 [facility] [address] [id number] [address] [place] [address], [place] [address] 26 Jan, 2012 [facility] [address] [id number] [address] [place] [address], [place] [address] 20 Jan, 2012 [facility] [address] [id number] [address] [place] [address], [place] [address] 19 Jan, 2012 [facility] [address] [id number] [address] [place] [address], [place] [address] 18 Jan, 2012 [facility] [address] [id number] [address] [place] [address], [place] [address] 17 Jan, 2012 [facility] [address] [id number] [address] [place] [address], [place] [address] 16 Jan, 2012 [facility] [address] [id number] [address] [place] [address], [place] [address] Dec, [facility] [address] [id number] [address] [place] [address], [place] [address] 13 Jan, 2012 [facility] [address] [id number] [address] [place] [address], [place] [address] 02 Jan, 2012 [facility] [address] [id number] [address] [place] [address], [place] [address] Dec, [facility] [address] [id number] [address] [place] [address], [place] [address] Dec, [facility] [address] [id number] [address] [place] [address], [place] [address] Dec, [facility] [address] [id number] [address] [place] [address], [place] [address] 18 Dec, 2011 [facility] [address] [id number] [address] [place] [address], [place] [address] Dec, [facility] [address] [id number] [address] [place] [address], [place] [address] Dec, [facility] [address] [id number] [address] [place] [address], [place] [address] Dec, [facility] [address] [id number] [address] [place] [address], [place] [address] October, [facility] [address] [id number] [address] [place] [address], [place] [address] October, [facility] [address] [id number] [address] [place] [address], [place] [address] October, [facility] [address] [id number] [address] [place] [address], [place] [address] October, [facility] [address] [id number] [address] [place] [address], [place] [address] October, [facility] [address] [id number] [address] [place] [address], [place] [address] October, [facility] [address] [id number] [address] [place] [address], [place] [address] Oct, [facility] [address] [id number] [address] [place] [address], [place] [address] Oct, [facility] [address] [id number] [address] [place] [address], [place] [address] Oct, [facility] [address] [id number] [address] [place] [address], [place] [address] Oct, [facility] [address] [id number] [address] [place] [address], [place] [address] Oct, [facility] [address] [id number] [address] [place] [address], [place] [address] Oct, [facility] [address] [id number] [address] [place] [address], [place] [address] 02 Oct, 2011 [facility] [address] [id number] [address] [place] [address], [place] [address] 29 Sep, 2011 [facility] [address] [id number] [address] [place] [address], [place] [address] 29 Sep, 2011 [facility] [address] [id number] [address] [place] [address], [place] [address] 19 Sep, 2011 [facility] [address] [id number] [address] [place] [address], [place] [address] 13 Sep, 2011 [facility] [address] [id number] [address] [place] [address], [place] [address] 05 Sep, 2011 [facility] [address] [id number] [address] [place] [address], [place] [address] 05 Sep, 2011 [facility] [address] [id number] [address] [place] [address], [place] [address] 27 Aug, 2011 [facility] [address] [id number] [address] [place] [address], [place] [address] 20 Aug, 2011 [facility] [address] [id number] [address] [place] [address], [place] [address] 08 Aug, 2011 [facility] [address] [id number] [address] [place] [address], [place] [address] 31 Jul, 2011 [facility] [address] [id number] [address] [place] [address], [place] [address] Jul, [facility] [address] [id number] [address] [place] [address], [place] [address] 23 Jul, 2011 [facility] [address] [id number] [address] [place] [address], [place] [address] 10 Jul, 2011 [facility] [address] [id number] [address] [place] [address], [place] [address] 28 Jun, 2011 [facility] [address] [id number] [address] [place] [address], [place] [address] Jun, [facility] [address] [id number] [address] [place] [address], [place] [address] May, [facility] [address] [id number] [address] [place] [address], [place] [address] May, [facility] [address] [id number] [address] [place] [address], [place] [address] May, [facility] [address] [id number] [address] [place] [address], [place] [address] May, [facility] [address] [id number] [address] [place] [address], [place] [address] May, [facility] [address] [id number] [address] [place] [address], [place] [address] Apr, [facility] [address] [id number] [address] [place] [address], [place] [address] Apr, [facility] [address] [id number] [address] [place] [address], [place] [address] Apr, [facility] [address] [id number] [address] [place] [address], [place] [address] Jan, [facility] [address] [id number] [address] [place] [address], [place] [address] Dec, [facility] [address] [id number] [address] [place] [address], [place] [address] October, [facility] [address] [id number] [address] [place] [address], [place] [address] Jun, [facility] [address] [id number] [address] [place] [address], [place] [address] 23 Apr, 2009 [facility] [address] [id number] [address] [place] [address], [place] [address] Apr, [facility] [address] [id number] [address] [place] [address], [place] [address] Apr, [facility] [address] [id number] [address] [place] [address], [place] [address] Jun, IMMUNIZATIONS No Known Immunizations SOCIAL HISTORY [...]
--- OUTSIDE RECORDS SUMMARY | 2020-01-25 12:39 | XMS REPORT ---
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 Name Role Phone MELISA Iraheta Unavailable PROBLEMS Type Condition ICD9-CM Code OTT87-DP Code Onset Dates Condition S tatus SNOMED Code Problem Attention deficit R41.840 Active 76 717971 Problem Chronic hepatitis C without hepatic coma B18.2 Active 086363928 Problem Cannabis abuse F12.10 Active 80847 009 Problem Bipolar disorder, in partial remission, most rec ent episode hypomanic F31.71 Active 158116706 Problem Attention deficit hyperactivity disorder (ADHD), combi luciano type F90.2 Active 06611543 Problem Bipolar 1 disorder F31.9 Active 3 33955254 Problem H/O laminectomy Z98.89 Active 1616 06287 Problem Other chronic pain G89.29 Active 8 1254277 Problem Anxiety disorder, unspecified type F41.9 Active [id number] ALLERGIES No Information ENCOUNTERS Encounter Location Date Diagnosis [place] [id number] [facility] [id number] [address] [place] [address] Dec, Other chronic pain G89.29 an d Low back pain M54.5 [facility] [address] [facility] [id number] [address] [place] [address] October, [facility] [address] [facility] [id number] [address] [place] [address] October, [facility] [address] [facility] [id number] [address] [place] [address] October, [facility] [address] [facility] [id number] [address] [place] [address] October, Other chronic pain G89.29 an d Chronic hepatitis C without hepatic coma B18.2 [facility] [address] [id number] [address] [place] [address] Aug, Bipolar disorder, in partial remission, most recent episode hypomanic F31.71 ; Attention deficit hyperactivity disorder (ADHD), combined type F90.2 and Anxiety disorder, unspecified type F41.9 [facility] [address] [id number] [address] [place] [address] Aug, [facility] [address] [id number] [address] [place] [address] Aug, Bipolar disorder, in partial remission, most recent episode hypomanic F31.71 [facility] [address] [id number] [address] [place] [address] Aug, [facility] [address] [id number] [address] [place] [address] Aug, Bipolar disorder, in partial remission, most recent episode hypomanic F31.71 [facility] [address] [id number] [address] [place] [address] Aug, Bipolar disorder, in partial remission, most recent episode hypomanic F31.71 ; Attention deficit hyperactivity disorder (ADHD), combined type F90.2 and Anxiety disorder, unspecified type F41.9 [facility] [address] [id number] [address] [place] [address] Aug, Low back pain M54.5 and Pain in left wrist M25.532 [facility] [address] [id number] [address] [place] [address] Aug, [facility] [address] [id number] [address] [place] [address] Jun, [facility] [address] [id number] [address] [place] [address] Apr, Bipolar disorder, in partial remission, most recent episode hypomanic F31.71 [facility] [address] [id number] [address] [place] [address] Apr, [facility] [address] [id number] [address] [place] [address] Apr, Bipolar disorder, in partial remission, most recent episode hypomanic F31.71 ; Attention deficit hyperactivity disorder (ADHD), combined type F90.2 ; Anxiety disorder, unspecified type F41.9 and Other penitentiary (current) 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 Z79.899 [facility] [address] [id number] [address] [place] [address] Apr, Bipolar disorder, in partial remission, most recent episode hypomanic F31.71 [facility] [address] [id number] [address] [place] [address] Apr, Bipolar disorder, in partial remission, most recent episode hypomanic F31.71 [facility] [address] [id number] [address] [place] [address] Mar, [facility] [address] [id number] [address] [place] [address] Mar, Bipolar disorder, in partial remission, most recent episode hypomanic F31.71 ; Encounter for immunization Z23 and Low back pain M54.5 [facility] [address] [id number] [address] [place] [address] Mar, Bipolar disorder, in partial remission, most recent episode hypomanic F31.71 [facility] [address] [id number] [address] [place] [address] Mar, Bipolar disorder, in partial remission, most recent episode hypomanic F31.71 [facility] [address] [id number] [address] [place] [address] Jan, Bipolar disorder, in partial remission, most recent episode hypomanic F31.71 [facility] [address] [id number] [address] [place] [address] Jan, Bipolar disorder, in partial remission, most recent episode hypomanic F31.71 [facility] [address] [id number] [address] [place] [address] Dec, Bipolar disorder, in partial remission, most recent episode hypomanic F31.71 [facility] [address] [id number] [address] [place] [address] Dec, Bipolar disorder, in partial remission, most recent episode hypomanic F31.71 ; Attention deficit hyperactivity disorder (ADHD), combined type F90.2 ; Anxiety disorder, unspecified type F41.9 and 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 [facility] [address] [id number] [address] [place] [address] Dec, Bipolar disorder, in partial remission, most recent episode hypomanic F31.71 [facility] [address] [id number] [address] [place] [address] Dec, Bipolar disorder, in partial remission, most recent episode hypomanic F31.71 [facility] [address] [id number] [address] [place] [address] October, Bipolar disorder, in partial remission, most recent episode hypomanic F31.71 [facility] [address] [id number] [address] [place] [address] October, [facility] [address] [id number] [address] [place] [address] October, [facility] [address] [id number] [address] [place] [address] Oct, Bipolar disorder, in partial remission, most recent episode hypomanic F31.71 ; Attention deficit hyperactivity disorder (ADHD), combined type F90.2 ; Anxiety disorder, unspecified type F41.9 and Encounter for drug screening Z02.83 [facility] [address] [id number] [address] [place] [address] Oct, Bipolar disorder, in partial remission, most recent episode hypomanic F31.71 [facility] [address] [id number] [address] [place] [address] Oct, Bipolar disorder, in partial remission, most recent episode hypomanic F31.71 [facility] [address] [id number] [address] [place] [address] Aug, Bipolar disorder, in partial remission, most recent episode hypomanic F31.71 [facility] [address] [id number] [address] [place] [address] 15 Aug, 2017 Bipolar disorder, in partial remission, most recent episode hypomanic F31.71 [facility] [address] [id number] [address] [place] [address] Aug, Bipolar disorder, in partial remission, most recent episode hypomanic F31.71 [facility] [address] [id number] [address] [place] [address] Jul, Bipolar disorder, in partial remission, most recent episode hypomanic F31.71 ; Attention deficit hyperactivity disorder (ADHD), combined type F90.2 and Anxiety disorder, unspecified type F41.9 [facility] [address] [facility] [id number] [address] [place] [address] Jul, Bipolar disorder, in partial remission, most recent episode hypomanic F31.71 [facility] [address] [facility] [id number] [address] [place] [address] Jun, Bipolar disorder, in partial remission, most recent episode hypomanic F31.71 [facility] [address] [id number] [address] [place] [address] May, Bipolar disorder, in partial remission, most recent episode hypomanic F31.71 [facility] [address] [facility] [id number] [address] [place] [address] May, Bipolar disorder, in partial remission, most recent episode hypomanic F31.71 [facility] [address] [facility] [id number] [address] [place] [address] Apr, [facility] [address] [facility] [id number] [address] [place] [address] Apr, Bipolar disorder, in partial remission, most recent episode hypomanic F31.71 ; Attention deficit hyperactivity disorder (ADHD), combined type F90.2 ; Anxiety disorder, unspecified type F41.9 and Cannabis abuse F12.10 [facility] [address] [id number] [address] [place] [address] 13 Apr, 2017 Attention deficit hyperactiv ity disorder (ADHD), combined type F90.2 [facility] [address] [id number] [address] [place] [address] Mar, Attention deficit hyperactiv ity disorder (ADHD), combined type F90.2 [facility] [address] [id number] [address] [place] [address] 14 Mar, 2017 Anxiety disorder, unspecifie d type F41.9 [facility] [address] [id number] [address] [place] [address] 18 Jan, 2017 Attention deficit hyperactiv ity disorder (ADHD), combined type F90.2 [facility] [address] [facility] [id number] [address] [place] [address] Jan, Anxiety disorder, unspecifie d type F41.9 [facility] [address] [facility] [id number] [address] [place] [address] Jan, Other chronic pain G89.29 ; Chronic hepatitis C without hepatic coma B18.2 and Bipolar 1 disorder F31.9 [facility] [address] [facility] [id number] [address] [place] [address] Dec, Attention deficit hyperactiv ity disorder (ADHD), combined type F90.2 [facility] [address] [facility] [id number] [address] [place] [address] 24 Dec, 2016 Bipolar disorder, in partial remission, most recent episode hypomanic F31.71 ; Attention deficit hyperactivity disorder (ADHD), combined type F90.2 and Anxiety disorder, unspecified type F41.9 [facility] [address] [facility] [id number] [address] [place] [address] Dec, Bipolar disorder, in partial remission, most recent episode hypomanic F31.71 ; Attention deficit hyperactivity disorder (ADHD), combined type F90.2 and Anxiety disorder, unspecified type F41.9 [facility] [address] [id number] [address] [place] [address] Dec, Bipolar 1 disorder F31.9 and Attention deficit R41.840 [facility] [address] [facility] [id number] [address] [place] [address] Oct, Other chronic pain G89.29 ; Alopecia L65.9 and Screening, lipid Z13.220 [facility] [address] [place] [id number] [address] [place] [address] Oct, [facility] [address] [place] [id number] [address] [place] [address] Aug, [facility] [address] [place] [id number] [address] [place] [address] Aug, Eustachian tube dysfunction, right H69.81 ; Vertigo R42 and Other chronic pain G89.29 [facility] [address] [place] [id number] [address] [place] [address] Aug, [facility] [address] [place] [id number] [address] [place] [address] Jun, [facility] [address] [place] [id number] [address] [place] [address] Jun, Low back pain M54.5 and Othe r chronic pain G89.29 [facility] [address] [place] [id number] [address] [place] [address] Jun, [facility] [address] [facility] [id number] [address] [place] [address] May, [facility] [address] [place] [id number] [address] [place] [address] Jan, [facility] [address] [place] [id number] [address] [place] [address] Dec, [facility] [address] [place] [id number] [address] [place] [address] Dec, [facility] [address] [facility] [id number] [address] [place] [address] Jun, [facility] [address] [facility] [id number] [address] [place] [address] Apr, Eustachian tube dysfunction, unspecified laterality H69.80 ; Hot flashes N95.1 and Encounter for immunization Z23 [facility] [address] [facility] [id number] [address] [place] [address] Jan, [facility] [address] [facility] [id number] [address] [place] [address] Jan, [facility] [address] [facility] [id number] [address] [place] [address] Jan, [facility] [address] [place] [id number] [address] [place] [address] Jan, [facility] [address] [place] [id number] [place] [address] Jan, Encounter to establish care V65.8 ; Bipolar 1 disorder 296.7 ; Abdominal pain 789.00 ; Constipation 564.00 ; Hard of hearing 389.9 and Drug abuse 305.90 [facility] [address] [facility] [id number] [address] [place] [address] Dec, [facility] [address] [facility] [id number] [address] [place] [address] October, [facility] [address] [facility] [id number] [address] [place] [address] October, [facility] [address] [facility] [id number] [address] [place] [address] Oct, [facility] [address] [facility] [id number] [address] [place] [address] Oct, [facility] [address] [facility] [id number] [address] [place] [address] Oct, [facility] [address] [id number] [address] [place] [address], [place] [address] Aug, [facility] [address] [id number] [address] [place] [address], [place] [address] Aug, 2014 [facility] [address] [id number] [address] [place] [address], [place] [address] Aug, 2014 [facility] [address] [id number] [address] [place] [address], [place] [address] Aug, 2014 [facility] [address] [id number] [address] [place] [address], [place] [address] Aug, 2014 [facility] [address] [id number] [address] [place] [address], [place] [address] Aug, 2014 [facility] [address] [id number] [address] [place] [address], [place] [address] Aug, 2014 [facility] [address] [id number] [address] [place] [address], [place] [address] Aug, 2014 [facility] [address] [id number] [address] [place] [address], [place] [address] Aug, 2014 [facility] [address] [id number] [address] [place] [address], [place] [address] Aug, 2014 [facility] [address] [id number] [address] [place] [address], [place] [address] Aug, 2014 [facility] [address] [id number] [address] [place] [address], [place] [address] Aug, 2014 [facility] [address] [id number] [address] [place] [address], [place] [address] Aug, 2014 [facility] [address] [id number] [address] [place] [address], [place] [address] Aug, 2014 [facility] [address] [id number] [address] [place] [address], [place] [address] Aug, 2014 [facility] [address] [id number] [address] [place] [address], [place] [address] Jul, [facility] [address] [id number] [address] [place] [address], [place] [address] Jul, [facility] [address] [id number] [address] [place] [address], [place] [address] Jul, [facility] [address] [id number] [address] [place] [address], [place] [address] Jul, [facility] [address] [id number] [address] [place] [address], [place] [address] Jul, [facility] [address] [id number] [address] [place] [address], [place] [address] Jul, [facility] [address] [id number] [address] [place] [address], [place] [address] Jul, [facility] [address] [id number] [address] [place] [address], [place] [address] Jul, [facility] [address] [id number] [address] [place] [address], [place] [address] Jun, [facility] [address] [id number] [address] [place] [address], [place] [address] Jun, [facility] [address] [id number] [address] [place] [address], [place] [address] Jun, [facility] [address] [id number] [address] [place] [address], [place] [address] 29 Jun, 2014 [facility] [address] [id number] [address] [place] [address], [place] [address] 18 Jun, 2014 [facility] [address] [id number] [address] [place] [address], [place] [address] Jun, [facility] [address] [id number] [address] [place] [address], [place] [address] Jun, [facility] [address] [id number] [address] [place] [address], [place] [address] Jun, [facility] [address] [id number] [address] [place] [address], [place] [address] Jun, [facility] [address] [id number] [address] [place] [address], [place] [address] Jun, [facility] [address] [id number] [address] [place] [address], [place] [address] Jun, [facility] [address] [id number] [address] [place] [address], [place] [address] May, [facility] [address] [id number] [address] [place] [address], [place] [address] May, [facility] [address] [id number] [address] [place] [address], [place] [address] May, [facility] [address] [id number] [address] [place] [address], [place] [address] May, [facility] [address] [id number] [address] [place] [address], [place] [address] May, [facility] [address] [id number] [address] [place] [address], [place] [address] May, [facility] [address] [id number] [address] [place] [address], [place] [address] May, [facility] [address] [id number] [address] [place] [address], [place] [address] Apr, [facility] [address] [id number] [address] [place] [address], [place] [address] Apr, [facility] [address] [id number] [address] [place] [address], [place] [address] Apr, [facility] [address] [id number] [address] [place] [address], [place] [address] Apr, [facility] [address] [id number] [address] [place] [address], [place] [address] Apr, [facility] [address] [id number] [address] [place] [address], [place] [address] Apr, [facility] [address] [id number] [address] [place] [address], [place] [address] Mar, [facility] [address] [id number] [address] [place] [address], [place] [address] Mar, [facility] [address] [id number] [address] [place] [address], [place] [address] Mar, [facility] [address] [id number] [address] [place] [address], [place] [address] Mar, [facility] [address] [id number] [address] [place] [address], [place] [address] Mar, [facility] [address] [id number] [address] [place] [address], [place] [address] Mar, [facility] [address] [id number] [address] [place] [address], [place] [address] Jan, [facility] [address] [id number] [address] [place] [address], [place] [address] Jan, [facility] [address] [id number] [address] [place] [address], [place] [address] Jan, [facility] [address] [id number] [address] [place] [address], [place] [address] Jan, [facility] [address] [id number] [address] [place] [address], [place] [address] Dec, [facility] [address] [id number] [address] [place] [address], [place] [address] Dec, [facility] [address] [id number] [address] [place] [address], [place] [address] Dec, [facility] [address] [id number] [address] [place] [address], [place] [address] Dec, [facility] [address] [id number] [address] [place] [address], [place] [address] Dec, [facility] [address] [id number] [address] [place] [address], [place] [address] Dec, [facility] [address] [id number] [address] [place] [address], [place] [id number] Dec, [facility] [address] [id number] [address] [place] [address], [place] [address] Dec, [facility] [address] [id number] [address] [place] [address], [place] [address] Dec, [facility] [address] [id number] [address] [place] [address], [place] [address] Dec, [facility] [address] [id number] [address] [place] [address], [place] [address] Dec, [facility] [address] [id number] [address] [place] [address], [place] [address] Dec, [facility] [address] [id number] [address] [place] [address], [place] [address] October, [facility] [address] [id number] [address] [place] [address], [place] [address] October, [facility] [address] [id number] [address] [place] [address], [place] [address] October, [facility] [address] [id number] [address] [place] [address], [place] [address] October, [facility] [address] [id number] [address] [place] [address], [place] [address] October, [facility] [address] [id number] [address] [place] [address], [place] [address] October, [facility] [address] [id number] [address] [place] [address], [place] [address] Oct, [facility] [address] [id number] [address] [place] [address], [place] [address] Oct, [facility] [address] [id number] [address] [place] [address], [place] [address] Oct, [facility] [address] [id number] [facility] [place] [address] Oct, [facility] [address] [id number] [facility] [place] [address] Oct, [facility] [address] [id number] [facility] [place] [address] Oct, [facility] [address] [id number] [address] [place] [address], [place] [address] Oct, [facility] [address] [id number] [facility] [place] [address] Oct, [facility] [address] [id number] [address] [place] [address], [place] [address] Oct, [facility] [address] [id number] [address] [place] [address], [place] [address] Oct, [facility] [address] [id number] [address] [place] [address], [place] [address] Oct, [facility] [address] [id number] [address] [place] [address], [place] [address] Oct, [facility] [address] [id number] [address] [place] [address], [place] [address] Aug, [facility] [address] [id number] [address] [place] [address], [place] [address] 15 Aug, 2013 [facility] [address] [id number] [address] [place] [address], [place] [address] Aug, [facility] [address] [id number] [address] [place] [address], [place] [address] Aug, [facility] [address] [id number] [address] [place] [address], [place] [address] 05 Aug, 2013 [facility] [address] [id number] [address] [place] [address], [place] [address] 05 Aug, 2013 [facility] [address] [id number] [address] [place] [address], [place] [address] Aug, [facility] [address] [id number] [facility] [place] [address] Aug, [facility] [address] [id number] [address] [place] [address], [place] [address] Aug, [facility] [address] [id number] [address] [place] [address], [place] [address] Aug, [facility] [address] [id number] [address] [place] [address], [place] [address] Aug, [facility] [address] [id number] [address] [place] [address], [place] [address] Aug, [facility] [address] [id number] [address] [place] [address], [place] [address] Aug, [facility] [address] [id number] [address] [place] [address], [place] [address] 20 Aug, 2013 [facility] [address] [id number] [address] [place] [address], [place] [address] 14 Aug, 2013 [facility] [address] [id number] [address] [place] [address], [place] [address] Aug, [facility] [address] [id number] [address] [place] [address], [place] [address] Aug, [facility] [address] [id number] [address] [place] [address], [place] [address] Aug, [facility] [address] [id number] [address] [place] [address], [place] [address] 07 Aug, 2013 [facility] [address] [id number] [address] [place] [address], [place] [address] 07 Aug, 2013 [facility] [address] [id number] [address] [place] [address], [place] [address] 06 Aug, 2013 [facility] [address] [id number] [address] [place] [address], [place] [address] Aug, [facility] [address] [id number] [address] [place] [address], [place] [address] Aug, [facility] [address] [id number] [address] [place] [address], [place] [address] Aug, [facility] [address] [id number] [address] [place] [address], [place] [address] Aug, [facility] [address] [id number] [address] [place] [address], [place] [address] Jul, [facility] [address] [id number] [address] [place] [address], [place] [address] Jul, [facility] [address] [id number] [address] [place] [address], [place] [address] Jul, [facility] [address] [id number] [address] [place] [address], [place] [address] Jul, [facility] [address] [id number] [address] [place] [address], [place] [address] Jul, [facility] [address] [id number] [address] [place] [address], [place] [address] Jul, [facility] [address] [id number] [address] [place] [address], [place] [address] Jul, [facility] [address] [id number] [address] [place] [address], [place] [address] Jul, [facility] [address] [id number] [address] [place] [address], [place] [address] Jul, [facility] [address] [id number] [address] [place] [address], [place] [address] Jul, [facility] [address] [id number] [address] [place] [address], [place] [address] Jul, [facility] [address] [id number] [address] [place] [address], [place] [address] Jul, [facility] [address] [id number] [address] [place] [address], [place] [address] Jul, [facility] [address] [id number] [address] [place] [address], [place] [address] Jul, [facility] [address] [id number] [address] [place] [address], [place] [address] Jul, [facility] [address] [id number] [address] [place] [address], [place] [address] Jul, [facility] [address] [id number] [address] [place] [address], [place] [address] Jul, [facility] [address] [id number] [address] [place] [address], [place] [address] Jul, [facility] [address] [id number] [address] [place] [address], [place] [address] Jul, [facility] [address] [id number] [address] [place] [address], [place] [address] Jul, [facility] [address] [id number] [address] [place] [address], [place] [address] Jun, [facility] [address] [id number] [address] [place] [address], [place] [address] Jun, [facility] [address] [id number] [address] [place] [address], [place] [address] Jun, [facility] [address] [id number] [address] [place] [address], [place] [address] Jun, [facility] [address] [id number] [address] [place] [address], [place] [address] Jun, [facility] [address] [id number] [address] [place] [address], [place] [address] Jun, [facility] [address] [id number] [address] [place] [address], [place] [address] Jun, [facility] [address] [id number] [address] [place] [address], [place] [address] Jun, [facility] [address] [id number] [address] [place] [address], [place] [address] 24 Jun, 2013 [facility] [address] [id number] [address] [place] [address], [place] [address] Jun, [facility] [address] [id number] [address] [place] [address], [place] [address] Jun, [facility] [address] [id number] [address] [place] [address], [place] [address] Jun, [facility] [address] [id number] [address] [place] [address], [place] [address] Jun, [facility] [address] [id number] [address] [place] [address], [place] [address] Jun, [facility] [address] [id number] [address] [place] [address], [place] [address] Jun, [facility] [address] [id number] [address] [place] [address], [place] [address] Jun, [facility] [address] [id number] [address] [place] [address], [place] [address] 18 Jun, 2013 [facility] [address] [id number] [address] [place] [address], [place] [address] Jun, [facility] [address] [id number] [address] [place] [address], [place] [address] 17 Jun, 2013 [facility] [address] [id number] [address] [place] [address], [place] [address] 13 Jun, 2013 [facility] [address] [id number] [address] [place] [address], [place] [address] 12 Jun, 2013 [facility] [address] [id number] [address] [place] [address], [place] [address] Jun, [facility] [address] [id number] [address] [place] [address], [place] [address] 09 Jun, 2013 [facility] [address] [id number] [address] [place] [address], [place] [address] Jun, [facility] [address] [id number] [address] [place] [address], [place] [address] Jun, [facility] [address] [id number] [address] [place] [address], [place] [address] Jun, [facility] [address] [id number] [address] [place] [address], [place] [address] Jun, [facility] [address] [id number] [address] [place] [address], [place] [address] May, [facility] [address] [id number] [address] [place] [address], [place] [address] May, [facility] [address] [id number] [address] [place] [address], [place] [address] May, [facility] [address] [id number] [address] [place] [address], [place] [address] May, [facility] [address] [id number] [address] [place] [address] May, [facility] [address] [id number] [address] [place] [address], [place] [address] May, [facility] [address] [id number] [address] [place] [address] Apr, [facility] [address] [id number] [address] [place] [address] Apr, [facility] [address] [id number] [address] [place] [address] 30 Apr, 2013 [facility] [address] [id number] [address] [place] [address], [place] [address] 30 Apr, 2013 [facility] [address] [id number] [address] [place] [address] Apr, [facility] [address] [id number] [address] [place] [address] 15 Apr, 2013 [facility] [address] [id number] [address] [place] [address], [place] [address] 15 Apr, 2013 [facility] [address] [id number] [address] [place] [address], [place] [address] 01 Apr, 2013 [facility] [address] [id number] [address] [place] [address], [place] [address] 26 Mar, 2012 [facility] [address] [id number] [address] [place] [address], [place] [address] 24 Mar, 2012 [facility] [address] [id number] [address] [place] [address], [place] [address] 17 Mar, 2012 [facility] [address] [id number] [address] [place] [address], [place] [address] 17 Mar, 2012 [facility] [address] [id number] [address] [place] [address], [place] [address] 11 Mar, 2013 [facility] [address] [id number] [address] [place] [address], [place] [address] 10 Mar, 2012 [facility] [address] [id number] [address] [place] [address], [place] [address] 05 Mar, 2013 [facility] [address] [id number] [address] [place] [address], [place] [address] 04 Mar, 2013 [facility] [address] [id number] [address] [place] [address], [place] [address] 20 Jan, 2013 [facility] [address] [id number] [address] [place] [address], [place] [address] Jan, [facility] [address] [id number] [address] [place] [address], [place] [address] 14 Jan, 2013 [facility] [address] [id number] [address] [place] [address], [place] [address] 12 Jan, 2013 [facility] [address] [id number] [address] [place] [address], [place] [address] Jan, [facility] [address] [id number] [address] [place] [address], [place] [address] 05 Jan, 2013 [facility] [address] [id number] [facility] [place] [address] 31 Dec, 2012 [facility] [address] [id number] [address] [place] [address], [place] [address] 24 Dec, 2012 [facility] [address] [id number] [address] [place] [address], [place] [address] 22 Dec, 2012 [facility] [address] [id number] [address] [place] [address], [place] [address] 19 Dec, 2012 [facility] [address] [id number] [address] [place] [address], [place] [address] 18 Dec, 2012 [facility] [address] [id number] [address] [place] [address], [place] [address] 17 Dec, 2012 [facility] [address] [id number] [address] [place] [address], [place] [address] 16 Dec, 2012 [facility] [address] [id number] [address] [place] [address], [place] [address] 16 Dec, 2012 [facility] [address] [id number] [address] [place] [address], [place] [address] 15 Dec, 2012 [facility] [address] [id number] [address] [place] [address], [place] [address] 10 Dec, 2012 [facility] [address] [id number] [address] [place] [address], [place] [address] 28 Dec, 2012 [facility] [address] [id number] [address] [place] [address], [place] [address] 25 Dec, 2012 [facility] [address] [id number] [address] [place] [address], [place] [address] 19 Dec, 2012 [facility] [address] [id number] [address] [place] [address], [place] [address] 17 Dec, 2012 [facility] [address] [id number] [address] [place] [address], [place] [address] 13 Dec, 2012 [facility] [address] [id number] [address] [place] [address], [place] [address] Dec, [facility] [address] [id number] [address] [place] [address], [place] [address] October, [facility] [address] [id number] [address] [place] [address], [place] [address] October, [facility] [address] [id number] [address] [place] [address], [place] [address] October, [facility] [address] [id number] [address] [place] [address], [place] [address] October, [facility] [address] [id number] [address] [place] [address], [place] [address] October, [facility] [address] [id number] [address] [place] [address], [place] [address] October, [facility] [address] [id number] [address] [place] [address], [place] [address] October, [facility] [address] [id number] [address] [place] [address], [place] [address] Oct, [facility] [address] [id number] [address] [place] [address], [place] [address] Oct, [facility] [address] [id number] [address] [place] [address], [place] [address] Oct, [facility] [address] [id number] [address] [place] [address], [place] [address] Oct, [facility] [address] [id number] [address] [place] [address], [place] [address] Oct, [facility] [address] [id number] [address] [place] [address], [place] [address] 18 Oct, 2012 [facility] [address] [id number] [address] [place] [address], [place] [address] 17 Oct, 2012 [facility] [address] [id number] [address] [place] [address], [place] [address] 15 Oct, 2012 [facility] [address] [id number] [address] [place] [address], [place] [address] Oct, [facility] [address] [id number] [address] [place] [address], [place] [address] Oct, [facility] [address] [id number] [address] [place] [address], [place] [address] Oct, [facility] [address] [id number] [address] [place] [address], [place] [address] Oct, [facility] [address] [id number] [address] [place] [address], [place] [address] Aug, [facility] [address] [id number] [address] [place] [address], [place] [address] Aug, [facility] [address] [id number] [address] [place] [address], [place] [address] Aug, [facility] [address] [id number] [address] [place] [address], [place] [address] Aug, [facility] [address] [id number] [address] [place] [address], [place] [address] Aug, [facility] [address] [id number] [address] [place] [address], [place] [address] Aug, [facility] [address] [id number] [address] [place] [address], [place] [address] Aug, [facility] [address] [id number] [address] [place] [address], [place] [address] 14 Aug, 2012 [facility] [address] [id number] [address] [place] [address], [place] [address] Aug, [facility] [address] [id number] [address] [place] [address], [place] [address] Aug, [facility] [address] [id number] [address] [place] [address], [place] [address] 29 Jul, 2012 [facility] [address] [id number] [address] [place] [address], [place] [address] Jul, [facility] [address] [id number] [address] [place] [address], [place] [address] 08 Jul, 2012 [facility] [address] [id number] [address] [place] [address], [place] [address] 20 Jun, 2012 [facility] [address] [id number] [address] [place] [address], [place] [address] 18 Jun, 2012 [facility] [address] [id number] [address] [place] [address], [place] [address] 18 Jun, 2012 [facility] [address] [id number] [address] [place] [address], [place] [address] 18 Jun, 2012 [facility] [address] [id number] [address] [place] [address], [place] [address] 18 Jun, 2012 [facility] [address] [id number] [address] [place] [address], [place] [address] 14 Jun, 2012 [facility] [address] [id number] [address] [place] [address], [place] [address] 14 Jun, 2012 [facility] [address] [id number] [address] [place] [address], [place] [address] 13 Jun, 2012 [facility] [address] [id number] [address] [place] [address], [place] [address] 13 Jun, 2012 [facility] [address] [id number] [address] [place] [address], [place] [address] 11 Jun, 2012 [facility] [address] [id number] [address] [place] [address], [place] [address] 11 Jun, 2012 [facility] [address] [id number] [address] [place] [address], [place] [address] 11 Jun, 2012 [facility] [address] [id number] [address] [place] [address], [place] [address] 11 Jun, 2012 [facility] [address] [id number] [address] [place] [address], [place] [address] 07 Jun, 2012 [facility] [address] [id number] [address] [place] [address], [place] [address] 07 Jun, 2012 [facility] [address] [id number] [address] [place] [address], [place] [address] Jun, [facility] [address] [id number] [address] [place] [address], [place] [address] Jun, [facility] [address] [id number] [address] [place] [address], [place] [address] Jun, [facility] [address] [id number] [address] [place] [address], [place] [address] Jun, [facility] [address] [id number] [address] [place] [address], [place] [address] Jun, [facility] [address] [id number] [address] [place] [address], [place] [address] Jun, [facility] [address] [id number] [address] [place] [address], [place] [address] Jun, [facility] [address] [id number] [address] [place] [address], [place] [address] Jun, [facility] [address] [id number] [address] [place] [address], [place] [address] May, [facility] [address] [id number] [address] [place] [address], [place] [address] May, [facility] [address] [id number] [address] [place] [address], [place] [address] May, [facility] [address] [id number] [address] [place] [address], [place] [address] May, [facility] [address] [id number] [address] [place] [address], [place] [address] May, [facility] [address] [id number] [address] [place] [address], [place] [address] May, [facility] [address] [id number] [address] [place] [address], [place] [address] May, [facility] [address] [id number] [address] [place] [address], [place] [address] May, [facility] [address] [id number] [address] [place] [address], [place] [address] Apr, [facility] [address] [id number] [address] [place] [address], [place] [address] Apr, [facility] [address] [id number] [address] [place] [address], [place] [address] Apr, [facility] [address] [id number] [address] [place] [address], [place] [address] Apr, [facility] [address] [id number] [address] [place] [address], [place] [address] Apr, [facility] [address] [id number] [address] [place] [address] [address] Apr, [facility] [address] [id number] [address] [place] [address], [place] [address] Apr, [facility] [address] [id number] [address] [place] [address], [place] [address] Apr, [facility] [address] [id number] [address] [place] [address], [place] [address] Apr, [facility] [address] [id number] [address] [place] [address], [place] [address] Apr, [facility] [address] [id number] [address] [place] [address], [place] [address] Apr, [facility] [address] [id number] [address] [place] [address], [place] [address] Apr, [facility] [address] [id number] [address] [place] [address], [place] [address] Mar, [facility] [address] [id number] [address] [place] [address], [place] [address] 18 Mar, 2012 [facility] [address] [id number] [address] [place] [address] Mar, [facility] [address] [id number] [address] [place] [address] Mar, [facility] [address] [id number] [address] [place] [id number] Mar, [facility] [address] [id number] [address] [place] [id number] Mar, [facility] [address] [id number] [address] [place] [address] Mar, [facility] [address] [id number] [address] [place] [address], [place] [address] Jan, [facility] [address] [id number] [address] [place] [address] Jan, [facility] [address] [id number] [address] [place] [id number] Jan, [facility] [address] [id number] [address] [place] [id number] Jan, [facility] [address] [id number] [address] [place] [address], [place] [address] Jan, [facility] [address] [id number] [address] [place] [id number] Jan, [facility] [address] [id number] [address] [place] [id number] Jan, [facility] [address] [id number] [address] [place] [id number] Jan, [facility] [address] [id number] [address] [place] [address], [place] [address] Jan, [facility] [address] [id number] [address] [place] [address], [place] [address] Jan, [facility] [address] [id number] [address] [place] [id number] Jan, [facility] [address] [id number] [address] [place] [address], [place] [address] 28 Jan, 2012 [facility] [address] [id number] [address] [place] [address], [place] [address] 27 Jan, 2012 [facility] [address] [id number] [address] [place] [address], [place] [address] 26 Jan, 2012 [facility] [address] [id number] [address] [place] [address], [place] [address] 26 Jan, 2012 [facility] [address] [id number] [address] [place] [address], [place] [address] 20 Jan, 2012 [facility] [address] [id number] [address] [place] [address], [place] [address] 19 Jan, 2012 [facility] [address] [id number] [address] [place] [address], [place] [address] 18 Jan, 2012 [facility] [address] [id number] [address] [place] [address], [place] [address] 17 Jan, 2012 [facility] [address] [id number] [address] [place] [address], [place] [address] 16 Jan, 2012 [facility] [address] [id number] [address] [place] [address], [place] [address] Dec, [facility] [address] [id number] [address] [place] [address], [place] [address] 13 Jan, 2012 [facility] [address] [id number] [address] [place] [address], [place] [address] 02 Jan, 2012 [facility] [address] [id number] [address] [place] [address], [place] [address] Dec, [facility] [address] [id number] [address] [place] [address], [place] [address] Dec, [facility] [address] [id number] [address] [place] [address], [place] [address] Dec, [facility] [address] [id number] [address] [place] [address], [place] [address] 18 Dec, 2011 [facility] [address] [id number] [address] [place] [address], [place] [address] Dec, [facility] [address] [id number] [address] [place] [address], [place] [address] Dec, [facility] [address] [id number] [address] [place] [address], [place] [address] Dec, [facility] [address] [id number] [address] [place] [address], [place] [address] October, [facility] [address] [id number] [address] [place] [address], [place] [address] October, [facility] [address] [id number] [address] [place] [address], [place] [address] October, [facility] [address] [id number] [address] [place] [address], [place] [address] October, [facility] [address] [id number] [address] [place] [address], [place] [address] October, [facility] [address] [id number] [address] [place] [address], [place] [address] October, [facility] [address] [id number] [address] [place] [address], [place] [address] Oct, [facility] [address] [id number] [address] [place] [address], [place] [address] Oct, [facility] [address] [id number] [address] [place] [address], [place] [address] Oct, [facility] [address] [id number] [address] [place] [address], [place] [address] Oct, [facility] [address] [id number] [address] [place] [address], [place] [address] Oct, [facility] [address] [id number] [address] [place] [address], [place] [address] Oct, [facility] [address] [id number] [address] [place] [address], [place] [address] 02 Oct, 2011 [facility] [address] [id number] [address] [place] [address], [place] [address] 29 Sep, 2011 [facility] [address] [id number] [address] [place] [address], [place] [address] 29 Sep, 2011 [facility] [address] [id number] [address] [place] [address], [place] [address] 19 Sep, 2011 [facility] [address] [id number] [address] [place] [address], [place] [address] 13 Sep, 2011 [facility] [address] [id number] [address] [place] [address], [place] [address] 05 Sep, 2011 [facility] [address] [id number] [address] [place] [address], [place] [address] 05 Sep, 2011 [facility] [address] [id number] [address] [place] [address], [place] [address] 27 Aug, 2011 [facility] [address] [id number] [address] [place] [address], [place] [address] 20 Aug, 2011 [facility] [address] [id number] [address] [place] [address], [place] [address] 08 Aug, 2011 [facility] [address] [id number] [address] [place] [address], [place] [address] 31 Jul, 2011 [facility] [address] [id number] [address] [place] [address], [place] [address] Jul, [facility] [address] [id number] [address] [place] [address], [place] [address] 23 Jul, 2011 [facility] [address] [id number] [address] [place] [address], [place] [address] 10 Jul, 2011 [facility] [address] [id number] [address] [place] [address], [place] [address] 28 Jun, 2011 [facility] [address] [id number] [address] [place] [address], [place] [address] Jun, [facility] [address] [id number] [address] [place] [address], [place] [address] May, [facility] [address] [id number] [address] [place] [address], [place] [address] May, [facility] [address] [id number] [address] [place] [address], [place] [address] May, [facility] [address] [id number] [address] [place] [address], [place] [address] May, [facility] [address] [id number] [address] [place] [address], [place] [address] May, [facility] [address] [id number] [address] [place] [address], [place] [address] Apr, [facility] [address] [id number] [address] [place] [address], [place] [address] Apr, [facility] [address] [id number] [address] [place] [address], [place] [address] Apr, [facility] [address] [id number] [address] [place] [address], [place] [address] Jan, [facility] [address] [id number] [address] [place] [address], [place] [address] Dec, [facility] [address] [id number] [address] [place] [address], [place] [address] October, [facility] [address] [id number] [address] [place] [address], [place] [address] Jun, [facility] [address] [id number] [address] [place] [address], [place] [address] 23 Apr, 2009 [facility] [address] [id number] [address] [place] [address], [place] [address] Apr, [facility] [address] [id number] [address] [place] [address], [place] [address] Apr, [facility] [address] [id number] [address] [place] [address], [place] [address] Jun, IMMUNIZATIONS No Known Immunizations SOCIAL HISTORY [...]
--- OUTSIDE RECORDS SUMMARY | 2020-01-25 12:40 | XMS REPORT ---
Author Author Ana Iraheta Organization [facility] Address [address] [place] [address] Care Team Providers Care Fixing Carpenter Name Role Phone MELISA Iraheta Unavailable PROBLEMS Type Condition ICD9-CM Code [id number] Code Onset Dates Condition S tatus SNOMED Code Problem Attention deficit R41.840 Active 76 272468 Problem Chronic hepatitis C without hepatic coma B18.2 Active 870412512 Problem Cannabis abuse F12.10 Active 98246 009 Problem Bipolar disorder, in partial remission, most rec ent episode hypomanic F31.71 Active 822654858 Problem Attention deficit hyperactivity disorder (ADHD), combi luciano type F90.2 Active 26165421 Problem Bipolar 1 disorder F31.9 Active 3 60564825 Problem H/O laminectomy Z98.89 Active 1616 20792 Problem Other chronic pain G89.29 Active 8 3150132 Problem Anxiety disorder, unspecified type F41.9 Active 901000480 ALLERGIES No Information ENCOUNTERS Encounter Location Date Diagnosis [place] [address] [facility] [id number] [address] [place] [address] Dec, Other chronic pain G89.29 an d Low back pain M54.5 [facility] [address] [facility] [id number] [address] [place] [address] October, [facility] [address] [facility] [id number] [address] [place] [address] October, [facility] [address] [facility] [id number] [address] [place] [address] October, [facility] [address] [facility] [id number] [address] [place] [address] October, Other chronic pain G89.29 an d Chronic hepatitis C without hepatic coma B18.2 [facility] [address] [id number] [address] [place] [address] Aug, Bipolar disorder, in partial remission, most recent episode hypomanic F31.71 ; Attention deficit hyperactivity disorder (ADHD), combined type F90.2 and Anxiety disorder, unspecified type F41.9 [facility] [address] [id number] [address] [place] [address] Aug, [facility] [address] [id number] [address] [place] [address] Aug, Bipolar disorder, in partial remission, most recent episode hypomanic F31.71 [facility] [address] [id number] [address] [place] [address] Aug, [facility] [address] [id number] [address] [place] [address] Aug, Bipolar disorder, in partial remission, most recent episode hypomanic F31.71 [facility] [address] [id number] [address] [place] [address] Aug, Bipolar disorder, in partial remission, most recent episode hypomanic F31.71 ; Attention deficit hyperactivity disorder (ADHD), combined type F90.2 and Anxiety disorder, unspecified type F41.9 [facility] [address] [id number] [address] [place] [address] Aug, Low back pain M54.5 and Pain in left wrist M25.532 [facility] [address] [id number] [address] [place] [address] Aug, [facility] [address] [id number] [address] [place] [address] Jun, [facility] [address] [id number] [address] [place] [address] Apr, Bipolar disorder, in partial remission, most recent episode hypomanic F31.71 [facility] [address] [id number] [address] [place] [address] Apr, [facility] [address] [id number] [address] [place] [address] Apr, Bipolar disorder, in partial remission, most recent episode hypomanic F31.71 ; Attention deficit hyperactivity disorder (ADHD), combined type F90.2 ; Anxiety disorder, unspecified type F41.9 and Other chcf (current) 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 Z79.899 [facility] [address] [id number] [address] [place] [address] Apr, Bipolar disorder, in partial remission, most recent episode hypomanic F31.71 [facility] [address] [id number] [address] [place] [address] Apr, Bipolar disorder, in partial remission, most recent episode hypomanic F31.71 [facility] [address] [id number] [address] [place] [address] Mar, [facility] [address] [id number] [address] [place] [address] Mar, Bipolar disorder, in partial remission, most recent episode hypomanic F31.71 ; Encounter for immunization Z23 and Low back pain M54.5 [facility] [address] [id number] [address] [place] [address] Mar, Bipolar disorder, in partial remission, most recent episode hypomanic F31.71 [facility] [address] [id number] [address] [place] [address] Mar, Bipolar disorder, in partial remission, most recent episode hypomanic F31.71 [facility] [address] [id number] [address] [place] [address] Jan, Bipolar disorder, in partial remission, most recent episode hypomanic F31.71 [facility] [address] [id number] [address] [place] [address] Jan, Bipolar disorder, in partial remission, most recent episode hypomanic F31.71 [facility] [address] [id number] [address] [place] [address] Dec, Bipolar disorder, in partial remission, most recent episode hypomanic F31.71 [facility] [address] [id number] [address] [place] [address] Dec, Bipolar disorder, in partial remission, most recent episode hypomanic F31.71 ; Attention deficit hyperactivity disorder (ADHD), combined type F90.2 ; Anxiety disorder, unspecified type F41.9 and 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 [facility] [address] [id number] [address] [place] [address] Dec, Bipolar disorder, in partial remission, most recent episode hypomanic F31.71 [facility] [address] [id number] [address] [place] [address] Dec, Bipolar disorder, in partial remission, most recent episode hypomanic F31.71 [facility] [address] [id number] [address] [place] [address] October, Bipolar disorder, in partial remission, most recent episode hypomanic F31.71 [facility] [address] [id number] [address] [place] [address] October, [facility] [address] [id number] [address] [place] [address] October, [facility] [address] [id number] [address] [place] [address] Oct, Bipolar disorder, in partial remission, most recent episode hypomanic F31.71 ; Attention deficit hyperactivity disorder (ADHD), combined type F90.2 ; Anxiety disorder, unspecified type F41.9 and Encounter for drug screening Z02.83 [facility] [address] [id number] [address] [place] [address] Oct, Bipolar disorder, in partial remission, most recent episode hypomanic F31.71 [facility] [address] [id number] [address] [place] [address] Oct, Bipolar disorder, in partial remission, most recent episode hypomanic F31.71 [facility] [address] [id number] [address] [place] [address] Aug, Bipolar disorder, in partial remission, most recent episode hypomanic F31.71 [facility] [address] [id number] [address] [place] [address] 15 Aug, 2017 Bipolar disorder, in partial remission, most recent episode hypomanic F31.71 [facility] [address] [id number] [address] [place] [address] Aug, Bipolar disorder, in partial remission, most recent episode hypomanic F31.71 [facility] [address] [id number] [address] [place] [address] Jul, Bipolar disorder, in partial remission, most recent episode hypomanic F31.71 ; Attention deficit hyperactivity disorder (ADHD), combined type F90.2 and Anxiety disorder, unspecified type F41.9 [facility] [address] [facility] [id number] [address] [place] [address] Jul, Bipolar disorder, in partial remission, most recent episode hypomanic F31.71 [facility] [address] [facility] [id number] [address] [place] [address] Jun, Bipolar disorder, in partial remission, most recent episode hypomanic F31.71 [facility] [address] [id number] [address] [place] [address] May, Bipolar disorder, in partial remission, most recent episode hypomanic F31.71 [facility] [address] [facility] [id number] [address] [place] [address] May, Bipolar disorder, in partial remission, most recent episode hypomanic F31.71 [facility] [address] [facility] [id number] [address] [place] [address] Apr, [facility] [address] [facility] [id number] [address] [place] [address] Apr, Bipolar disorder, in partial remission, most recent episode hypomanic F31.71 ; Attention deficit hyperactivity disorder (ADHD), combined type F90.2 ; Anxiety disorder, unspecified type F41.9 and Cannabis abuse F12.10 [facility] [address] [id number] [address] [place] [address] 13 Apr, 2017 Attention deficit hyperactiv ity disorder (ADHD), combined type F90.2 [facility] [address] [id number] [address] [place] [address] Mar, Attention deficit hyperactiv ity disorder (ADHD), combined type F90.2 [facility] [address] [id number] [address] [place] [address] 14 Mar, 2017 Anxiety disorder, unspecifie d type F41.9 [facility] [address] [id number] [address] [place] [address] 18 Jan, 2017 Attention deficit hyperactiv ity disorder (ADHD), combined type F90.2 [facility] [address] [facility] [id number] [address] [place] [address] Jan, Anxiety disorder, unspecifie d type F41.9 [facility] [address] [facility] [id number] [address] [place] [address] Jan, Other chronic pain G89.29 ; Chronic hepatitis C without hepatic coma B18.2 and Bipolar 1 disorder F31.9 [facility] [address] [facility] [id number] [address] [place] [address] Dec, Attention deficit hyperactiv ity disorder (ADHD), combined type F90.2 [facility] [address] [facility] [id number] [address] [place] [address] 24 Dec, 2016 Bipolar disorder, in partial remission, most recent episode hypomanic F31.71 ; Attention deficit hyperactivity disorder (ADHD), combined type F90.2 and Anxiety disorder, unspecified type F41.9 [facility] [address] [facility] [id number] [address] [place] [address] Dec, Bipolar disorder, in partial remission, most recent episode hypomanic F31.71 ; Attention deficit hyperactivity disorder (ADHD), combined type F90.2 and Anxiety disorder, unspecified type F41.9 [facility] [address] [id number] [address] [place] [address] Dec, Bipolar 1 disorder F31.9 and Attention deficit R41.840 [facility] [address] [facility] [id number] [address] [place] [address] Oct, Other chronic pain G89.29 ; Alopecia L65.9 and Screening, lipid Z13.220 [facility] [address] [place] [id number] [address] [place] [address] Oct, [facility] [address] [place] [id number] [address] [place] [address] Aug, [facility] [address] [place] [id number] [address] [place] [address] Aug, Eustachian tube dysfunction, right H69.81 ; Vertigo R42 and Other chronic pain G89.29 [facility] [address] [place] [id number] [address] [place] [address] Aug, [facility] [address] [place] [id number] [address] [place] [address] Jun, [facility] [address] [place] [id number] [address] [place] [address] Jun, Low back pain M54.5 and Othe r chronic pain G89.29 [facility] [address] [place] [id number] [address] [place] [address] Jun, [facility] [address] [facility] [id number] [address] [place] [address] May, [facility] [address] [place] [id number] [address] [place] [address] Jan, [facility] [address] [place] [id number] [address] [place] [address] Dec, [facility] [address] [place] [id number] [address] [place] [address] Dec, [facility] [address] [facility] [id number] [address] [place] [address] Jun, [facility] [address] [facility] [id number] [address] [place] [address] Apr, Eustachian tube dysfunction, unspecified laterality H69.80 ; Hot flashes N95.1 and Encounter for immunization Z23 [facility] [address] [facility] [id number] [address] [place] [address] Jan, [facility] [address] [facility] [id number] [address] [place] [address] Jan, [facility] [address] [facility] [id number] [address] [place] [address] Jan, [facility] [address] [place] [id number] [address] [place] [address] Jan, [facility] [address] [place] [id number] [place] [address] Jan, Encounter to establish care V65.8 ; Bipolar 1 disorder 296.7 ; Abdominal pain 789.00 ; Constipation 564.00 ; Hard of hearing 389.9 and Drug abuse 305.90 [facility] [address] [facility] [id number] [address] [place] [address] Dec, [facility] [address] [facility] [id number] [address] [place] [address] October, [facility] [address] [facility] [id number] [address] [place] [address] October, [facility] [address] [facility] [id number] [address] [place] [address] Oct, [facility] [address] [facility] [id number] [address] [place] [address] Oct, [facility] [address] [facility] [id number] [address] [place] [address] Oct, [facility] [address] [id number] [address] [place] [address], [place] [address] Aug, [facility] [address] [id number] [address] [place] [address], [place] [address] Aug, 2014 [facility] [address] [id number] [address] [place] [address], [place] [address] Aug, 2014 [facility] [address] [id number] [address] [place] [address], [place] [address] Aug, 2014 [facility] [address] [id number] [address] [place] [address], [place] [address] Aug, 2014 [facility] [address] [id number] [address] [place] [address], [place] [address] Aug, 2014 [facility] [address] [id number] [address] [place] [address], [place] [address] Aug, 2014 [facility] [address] [id number] [address] [place] [address], [place] [address] Aug, 2014 [facility] [address] [id number] [address] [place] [address], [place] [address] Aug, 2014 [facility] [address] [id number] [address] [place] [address], [place] [address] Aug, 2014 [facility] [address] [id number] [address] [place] [address], [place] [address] Aug, 2014 [facility] [address] [id number] [address] [place] [address], [place] [address] Aug, 2014 [facility] [address] [id number] [address] [place] [address], [place] [address] Aug, 2014 [facility] [address] [id number] [address] [place] [address], [place] [address] Aug, 2014 [facility] [address] [id number] [address] [place] [address], [place] [address] Aug, 2014 [facility] [address] [id number] [address] [place] [address], [place] [address] Jul, [facility] [address] [id number] [address] [place] [address], [place] [address] Jul, [facility] [address] [id number] [address] [place] [address], [place] [address] Jul, [facility] [address] [id number] [address] [place] [address], [place] [address] Jul, [facility] [address] [id number] [address] [place] [address], [place] [address] Jul, [facility] [address] [id number] [address] [place] [address], [place] [address] Jul, [facility] [address] [id number] [address] [place] [address], [place] [address] Jul, [facility] [address] [id number] [address] [place] [address], [place] [address] Jul, [facility] [address] [id number] [address] [place] [address], [place] [address] Jun, [facility] [address] [id number] [address] [place] [address], [place] [address] Jun, [facility] [address] [id number] [address] [place] [address], [place] [address] Jun, [facility] [address] [id number] [address] [place] [address], [place] [address] 29 Jun, 2014 [facility] [address] [id number] [address] [place] [address], [place] [address] 18 Jun, 2014 [facility] [address] [id number] [address] [place] [address], [place] [address] Jun, [facility] [address] [id number] [address] [place] [address], [place] [address] Jun, [facility] [address] [id number] [address] [place] [address], [place] [address] Jun, [facility] [address] [id number] [address] [place] [address], [place] [address] Jun, [facility] [address] [id number] [address] [place] [address], [place] [address] Jun, [facility] [address] [id number] [address] [place] [address], [place] [address] Jun, [facility] [address] [id number] [address] [place] [address], [place] [address] May, [facility] [address] [id number] [address] [place] [address], [place] [address] May, [facility] [address] [id number] [address] [place] [address], [place] [address] May, [facility] [address] [id number] [address] [place] [address], [place] [address] May, [facility] [address] [id number] [address] [place] [address], [place] [address] May, [facility] [address] [id number] [address] [place] [address], [place] [address] May, [facility] [address] [id number] [address] [place] [address], [place] [address] May, [facility] [address] [id number] [address] [place] [address], [place] [address] Apr, [facility] [address] [id number] [address] [place] [address], [place] [address] Apr, [facility] [address] [id number] [address] [place] [address], [place] [address] Apr, [facility] [address] [id number] [address] [place] [address], [place] [address] Apr, [facility] [address] [id number] [address] [place] [address], [place] [address] Apr, [facility] [address] [id number] [address] [place] [address], [place] [address] Apr, [facility] [address] [id number] [address] [place] [address], [place] [address] Mar, [facility] [address] [id number] [address] [place] [address], [place] [address] Mar, [facility] [address] [id number] [address] [place] [address], [place] [address] Mar, [facility] [address] [id number] [address] [place] [address], [place] [address] Mar, [facility] [address] [id number] [address] [place] [address], [place] [address] Mar, [facility] [address] [id number] [address] [place] [address], [place] [address] Mar, [facility] [address] [id number] [address] [place] [address], [place] [address] Jan, [facility] [address] [id number] [address] [place] [address], [place] [address] Jan, [facility] [address] [id number] [address] [place] [address], [place] [address] Jan, [facility] [address] [id number] [address] [place] [address], [place] [address] Jan, [facility] [address] [id number] [address] [place] [address], [place] [address] Dec, [facility] [address] [id number] [address] [place] [address], [place] [address] Dec, [facility] [address] [id number] [address] [place] [address], [place] [address] Dec, [facility] [address] [id number] [address] [place] [address], [place] [address] Dec, [facility] [address] [id number] [address] [place] [address], [place] [address] Dec, [facility] [address] [id number] [address] [place] [address], [place] [address] Dec, [facility] [address] [id number] [address] [place] [address], [place] [address] Dec, [facility] [address] [id number] [address] [place] [address], [place] [address] Dec, [facility] [address] [id number] [address] [place] [address], [place] [address] Dec, [facility] [address] [id number] [address] [place] [address], [place] [address] Dec, [facility] [address] [id number] [address] [place] [address], [place] [address] Dec, [facility] [address] [id number] [address] [place] [address], [place] [address] Dec, [facility] [address] [id number] [address] [place] [address], [place] [address] October, [facility] [address] [id number] [address] [place] [address], [place] [address] October, [facility] [address] [id number] [address] [place] [address], [place] [address] October, [facility] [address] [id number] [address] [place] [address], [place] [address] October, [facility] [address] [id number] [address] [place] [address], [place] [address] October, [facility] [address] [id number] [address] [place] [address], [place] [address] October, [facility] [address] [id number] [address] [place] [address], [place] [address] Oct, [facility] [address] [id number] [address] [place] [address], [place] [address] Oct, [facility] [address] [id number] [address] [place] [address], [place] [address] Oct, [facility] [address] [id number] [facility] [place] [address] Oct, [facility] [address] [id number] [facility] [place] [address] Oct, [facility] [address] [id number] [facility] [place] [address] Oct, [facility] [address] [id number] [address] [place] [address], [place] [address] Oct, [facility] [address] [id number] [facility] [place] [address] Oct, [facility] [address] [id number] [address] [place] [address], [place] [address] Oct, [facility] [address] [id number] [address] [place] [address], [place] [address] Oct, [facility] [address] [id number] [address] [place] [address], [place] [address] Oct, [facility] [address] [id number] [address] [place] [address], [place] [address] Oct, [facility] [address] [id number] [address] [place] [address], [place] [address] Aug, [facility] [address] [id number] [address] [place] [address], [place] [address] 15 Aug, 2013 [facility] [address] [id number] [address] [place] [address], [place] [address] Aug, [facility] [address] [id number] [address] [place] [address], [place] [address] Aug, [facility] [address] [id number] [address] [place] [address], [place] [address] 05 Aug, 2013 [facility] [address] [id number] [address] [place] [address], [place] [address] 05 Aug, 2013 [facility] [address] [id number] [address] [place] [address], [place] [address] Aug, [facility] [address] [id number] [facility] [place] [address] Aug, [facility] [address] [id number] [address] [place] [address], [place] [address] Aug, [facility] [address] [id number] [address] [place] [address], [place] [address] Aug, [facility] [address] [id number] [address] [place] [address], [place] [address] Aug, [facility] [address] [id number] [address] [place] [address], [place] [address] Aug, [facility] [address] [id number] [address] [place] [address], [place] [address] Aug, [facility] [address] [id number] [address] [place] [address], [place] [address] 20 Aug, 2013 [facility] [address] [id number] [address] [place] [address], [place] [address] 14 Aug, 2013 [facility] [address] [id number] [address] [place] [address], [place] [address] Aug, [facility] [address] [id number] [address] [place] [address], [place] [address] Aug, [facility] [address] [id number] [address] [place] [address], [place] [address] Aug, [facility] [address] [id number] [address] [place] [address], [place] [address] 07 Aug, 2013 [facility] [address] [id number] [address] [place] [address], [place] [address] 07 Aug, 2013 [facility] [address] [id number] [address] [place] [address], [place] [address] 06 Aug, 2013 [facility] [address] [id number] [address] [place] [address], [place] [address] Aug, [facility] [address] [id number] [address] [place] [address], [place] [address] Aug, [facility] [address] [id number] [address] [place] [address], [place] [address] Aug, [facility] [address] [id number] [address] [place] [address], [place] [address] Aug, [facility] [address] [id number] [address] [place] [address], [place] [address] Jul, [facility] [address] [id number] [address] [place] [address], [place] [address] Jul, [facility] [address] [id number] [address] [place] [address], [place] [address] Jul, [facility] [address] [id number] [address] [place] [address], [place] [address] Jul, [facility] [address] [id number] [address] [place] [address], [place] [address] Jul, [facility] [address] [id number] [address] [place] [address], [place] [address] Jul, [facility] [address] [id number] [address] [place] [address], [place] [address] Jul, [facility] [address] [id number] [address] [place] [address], [place] [address] Jul, [facility] [address] [id number] [address] [place] [address], [place] [address] Jul, [facility] [address] [id number] [address] [place] [address], [place] [address] Jul, [facility] [address] [id number] [address] [place] [address], [place] [address] Jul, [facility] [address] [id number] [address] [place] [address], [place] [address] Jul, [facility] [address] [id number] [address] [place] [address], [place] [address] Jul, [facility] [address] [id number] [address] [place] [address], [place] [address] Jul, [facility] [address] [id number] [address] [place] [address], [place] [address] Jul, [facility] [address] [id number] [address] [place] [address], [place] [address] Jul, [facility] [address] [id number] [address] [place] [address], [place] [address] Jul, [facility] [address] [id number] [address] [place] [address], [place] [address] Jul, [facility] [address] [id number] [address] [place] [address], [place] [address] Jul, [facility] [address] [id number] [address] [place] [address], [place] [address] Jul, [facility] [address] [id number] [address] [place] [address], [place] [address] Jun, [facility] [address] [id number] [address] [place] [address], [place] [address] Jun, [facility] [address] [id number] [address] [place] [address], [place] [address] Jun, [facility] [address] [id number] [address] [place] [address], [place] [address] Jun, [facility] [address] [id number] [address] [place] [address], [place] [address] Jun, [facility] [address] [id number] [address] [place] [address], [place] [address] Jun, [facility] [address] [id number] [address] [place] [address], [place] [address] Jun, [facility] [address] [id number] [address] [place] [address], [place] [address] Jun, [facility] [address] [id number] [address] [place] [address], [place] [address] 24 Jun, 2013 [facility] [address] [id number] [address] [place] [address], [place] [address] Jun, [facility] [address] [id number] [address] [place] [address], [place] [address] Jun, [facility] [address] [id number] [address] [place] [address], [place] [address] Jun, [facility] [address] [id number] [address] [place] [address], [place] [address] Jun, [facility] [address] [id number] [address] [place] [address], [place] [address] Jun, [facility] [address] [id number] [address] [place] [address], [place] [address] Jun, [facility] [address] [id number] [address] [place] [address], [place] [address] Jun, [facility] [address] [id number] [address] [place] [address], [place] [address] 18 Jun, 2013 [facility] [address] [id number] [address] [place] [address], [place] [address] Jun, [facility] [address] [id number] [address] [place] [address], [place] [address] 17 Jun, 2013 [facility] [address] [id number] [address] [place] [address], [place] [address] 13 Jun, 2013 [facility] [address] [id number] [address] [place] [address], [place] [address] 12 Jun, 2013 [facility] [address] [id number] [address] [place] [address], [place] [address] Jun, [facility] [address] [id number] [address] [place] [address], [place] [address] 09 Jun, 2013 [facility] [address] [id number] [address] [place] [address], [place] [address] Jun, [facility] [address] [id number] [address] [place] [address], [place] [address] Jun, [facility] [address] [id number] [address] [place] [address], [place] [address] Jun, [facility] [address] [id number] [address] [place] [address], [place] [address] Jun, [facility] [address] [id number] [address] [place] [address], [place] [address] May, [facility] [address] [id number] [address] [place] [address], [place] [address] May, [facility] [address] [id number] [address] [place] [address], [place] [address] May, [facility] [address] [id number] [address] [place] [address], [place] [address] May, [facility] [address] [id number] [address] [place] [address] May, [facility] [address] [id number] [address] [place] [address], [place] [address] May, [facility] [address] [id number] [address] [place] [address] Apr, [facility] [address] [id number] [address] [place] [address] Apr, [facility] [address] [id number] [address] [place] [address] 30 Apr, 2013 [facility] [address] [id number] [address] [place] [address], [place] [address] 30 Apr, 2013 [facility] [address] [id number] [address] [place] [address] Apr, [facility] [address] [id number] [address] [place] [address] 15 Apr, 2013 [facility] [address] [id number] [address] [place] [address], [place] [address] 15 Apr, 2013 [facility] [address] [id number] [address] [place] [address], [place] [address] 01 Apr, 2013 [facility] [address] [id number] [address] [place] [address], [place] [address] 26 Mar, 2012 [facility] [address] [id number] [address] [place] [address], [place] [address] 24 Mar, 2012 [facility] [address] [id number] [address] [place] [address], [place] [address] 17 Mar, 2012 [facility] [address] [id number] [address] [place] [address], [place] [address] 17 Mar, 2012 [facility] [address] [id number] [address] [place] [address], [place] [address] 11 Mar, 2013 [facility] [address] [id number] [address] [place] [address], [place] [address] 10 Mar, 2012 [facility] [address] [id number] [address] [place] [address], [place] [address] 05 Mar, 2013 [facility] [address] [id number] [address] [place] [address], [place] [address] 04 Mar, 2013 [facility] [address] [id number] [address] [place] [address], [place] [address] 20 Jan, 2013 [facility] [address] [id number] [address] [place] [address], [place] [address] Jan, [facility] [address] [id number] [address] [place] [address], [place] [address] 14 Jan, 2013 [facility] [address] [id number] [address] [place] [address], [place] [address] 12 Jan, 2013 [facility] [address] [id number] [address] [place] [address], [place] [address] Jan, [facility] [address] [id number] [address] [place] [address], [place] [address] 05 Jan, 2013 [facility] [address] [id number] [facility] [place] [address] 31 Dec, 2012 [facility] [address] [id number] [address] [place] [address], [place] [address] 24 Dec, 2012 [facility] [address] [id number] [address] [place] [address], [place] [address] 22 Dec, 2012 [facility] [address] [id number] [address] [place] [address], [place] [address] 19 Dec, 2012 [facility] [address] [id number] [address] [place] [address], [place] [address] 18 Dec, 2012 [facility] [address] [id number] [address] [place] [address], [place] [address] 17 Dec, 2012 [facility] [address] [id number] [address] [place] [address], [place] [address] 16 Dec, 2012 [facility] [address] [id number] [address] [place] [address], [place] [address] 16 Dec, 2012 [facility] [address] [id number] [address] [place] [address], [place] [address] 15 Dec, 2012 [facility] [address] [id number] [address] [place] [address], [place] [address] 10 Dec, 2012 [facility] [address] [id number] [address] [place] [address], [place] [address] 28 Dec, 2012 [facility] [address] [id number] [address] [place] [address], [place] [address] 25 Dec, 2012 [facility] [address] [id number] [address] [place] [address], [place] [address] 19 Dec, 2012 [facility] [address] [id number] [address] [place] [address], [place] [address] 17 Dec, 2012 [facility] [address] [id number] [address] [place] [address], [place] [address] 13 Dec, 2012 [facility] [address] [id number] [address] [place] [address], [place] [address] Dec, [facility] [address] [id number] [address] [place] [address], [place] [address] October, [facility] [address] [id number] [address] [place] [address], [place] [address] October, [facility] [address] [id number] [address] [place] [address], [place] [address] October, [facility] [address] [id number] [address] [place] [address], [place] [address] October, [facility] [address] [id number] [address] [place] [address], [place] [address] October, [facility] [address] [id number] [address] [place] [address], [place] [address] October, [facility] [address] [id number] [address] [place] [address], [place] [address] October, [facility] [address] [id number] [address] [place] [address], [place] [address] Oct, [facility] [address] [id number] [address] [place] [address], [place] [address] Oct, [facility] [address] [id number] [address] [place] [address], [place] [address] Oct, [facility] [address] [id number] [address] [place] [address], [place] [address] Oct, [facility] [address] [id number] [address] [place] [address], [place] [address] Oct, [facility] [address] [id number] [address] [place] [address], [place] [address] 18 Oct, 2012 [facility] [address] [id number] [address] [place] [address], [place] [address] 17 Oct, 2012 [facility] [address] [id number] [address] [place] [address], [place] [address] 15 Oct, 2012 [facility] [address] [id number] [address] [place] [address], [place] [address] Oct, [facility] [address] [id number] [address] [place] [address], [place] [address] Oct, [facility] [address] [id number] [address] [place] [address], [place] [address] Oct, [facility] [address] [id number] [address] [place] [address], [place] [address] Oct, [facility] [address] [id number] [address] [place] [address], [place] [address] Aug, [facility] [address] [id number] [address] [place] [address], [place] [address] Aug, [facility] [address] [id number] [address] [place] [address], [place] [address] Aug, [facility] [address] [id number] [address] [place] [address], [place] [address] Aug, [facility] [address] [id number] [address] [place] [address], [place] [address] Aug, [facility] [address] [id number] [address] [place] [address], [place] [address] Aug, [facility] [address] [id number] [address] [place] [address], [place] [address] Aug, [facility] [address] [id number] [address] [place] [address], [place] [address] 14 Aug, 2012 [facility] [address] [id number] [address] [place] [address], [place] [address] Aug, [facility] [address] [id number] [address] [place] [address], [place] [address] Aug, [facility] [address] [id number] [address] [place] [address], [place] [address] 29 Jul, 2012 [facility] [address] [id number] [address] [place] [address], [place] [address] Jul, [facility] [address] [id number] [address] [place] [address], [place] [address] 08 Jul, 2012 [facility] [address] [id number] [address] [place] [address], [place] [address] 20 Jun, 2012 [facility] [address] [id number] [address] [place] [address], [place] [address] 18 Jun, 2012 [facility] [address] [id number] [address] [place] [address], [place] [address] 18 Jun, 2012 [facility] [address] [id number] [address] [place] [address], [place] [address] 18 Jun, 2012 [facility] [address] [id number] [address] [place] [address], [place] [address] 18 Jun, 2012 [facility] [address] [id number] [address] [place] [address], [place] [address] 14 Jun, 2012 [facility] [address] [id number] [address] [place] [address], [place] [address] 14 Jun, 2012 [facility] [address] [id number] [address] [place] [address], [place] [address] 13 Jun, 2012 [facility] [address] [id number] [address] [place] [address], [place] [address] 13 Jun, 2012 [facility] [address] [id number] [address] [place] [address], [place] [address] 11 Jun, 2012 [facility] [address] [id number] [address] [place] [address], [place] [address] 11 Jun, 2012 [facility] [address] [id number] [address] [place] [address], [place] [address] 11 Jun, 2012 [facility] [address] [id number] [address] [place] [address], [place] [address] 11 Jun, 2012 [facility] [address] [id number] [address] [place] [address], [place] [address] 07 Jun, 2012 [facility] [address] [id number] [address] [place] [address], [place] [address] 07 Jun, 2012 [facility] [address] [id number] [address] [place] [address], [place] [address] Jun, [facility] [address] [id number] [address] [place] [address], [place] [address] Jun, [facility] [address] [id number] [address] [place] [address], [place] [address] Jun, [facility] [address] [id number] [address] [place] [address], [place] [address] Jun, [facility] [address] [id number] [address] [place] [address], [place] [address] Jun, [facility] [address] [id number] [address] [place] [address], [place] [address] Jun, [facility] [address] [id number] [address] [place] [address], [place] [address] Jun, [facility] [address] [id number] [address] [place] [address], [place] [address] Jun, [facility] [address] [id number] [address] [place] [address], [place] [address] May, [facility] [address] [id number] [address] [place] [address], [place] [address] May, [facility] [address] [id number] [address] [place] [address], [place] [address] May, [facility] [address] [id number] [address] [place] [address], [place] [address] May, [facility] [address] [id number] [address] [place] [address], [place] [address] May, [facility] [address] [id number] [address] [place] [address], [place] [address] May, [facility] [address] [id number] [address] [place] [address], [place] [address] May, [facility] [facility] [address] [id number] [address] [place] [address], [place] [address] May, [facility] [address] [id number] [address] [place] [address], [place] [address] Apr, [facility] [address] [id number] [address] [place] [address], [place] [address] Apr, [facility] [address] [id number] [address] [place] [address], [place] [address] Apr, [facility] [address] [id number] [address] [place] [address], [place] [address] Apr, [facility] [address] [id number] [address] [place] [address], [place] [address] Apr, [facility] [address] [id number] [address] [place] [address], [place] [address] Apr, [facility] [address] [id number] [address] [place] [address], [place] [address] Apr, [facility] [address] [id number] [address] [place] [address], [place] [address] Apr, [facility] [address] [id number] [address] [place] [address], [place] [address] Apr, [facility] [address] [id number] [address] [place] [address], [place] [address] Apr, [facility] [address] [id number] [address] [place] [address], [place] [address] Apr, [facility] [address] [id number] [address] [place] [address], [place] [address] Apr, [facility] [address] [id number] [address] [place] [address], [place] [address] Mar, [facility] [address] [id number] [address] [place] [address], [place] [address] 18 Mar, 2012 [facility] [address] [id number] [address] [place] [address] Mar, [facility] [address] [id number] [address] [place] [address] Mar, [facility] [address] [id number] [address] [place] [id number] Mar, [facility] [address] [id number] [address] [place] [id number] Mar, [facility] [address] [id number] [address] [place] [address] Mar, [facility] [address] [id number] [address] [place] [address], [place] [address] Jan, [facility] [address] [id number] [address] [place] [address] Jan, [facility] [address] [id number] [address] [place] [address] [id number] Jan, [facility] [address] [id number] [address] [place] [id number] Jan, [facility] [address] [id number] [address] [place] [address], [place] [address] Jan, [facility] [address] [id number] [address] [place] [address] Jan, [facility] [address] [id number] [address] [place] [address] Jan, [facility] [address] [id number] [address] [place] [phone] Jan, [facility] [address] [id number] [address] [place] [address], [place] [address] Jan, [facility] [address] [id number] [address] [place] [address], [place] [address] Jan, [facility] [address] [id number] [address] [place] [phone] Jan, [facility] [address] [id number] [address] [place] [address], [place] [address] 28 Jan, 2012 [facility] [address] [id number] [address] [place] [address], [place] [address] 27 Jan, 2012 [facility] [address] [id number] [address] [place] [address], [place] [address] 26 Jan, 2012 [facility] [address] [id number] [address] [place] [address], [place] [address] 26 Jan, 2012 [facility] [address] [id number] [address] [place] [address], [place] [address] 20 Jan, 2012 [facility] [address] [id number] [address] [place] [address], [place] [address] 19 Jan, 2012 [facility] [address] [id number] [address] [place] [address], [place] [address] 18 Jan, 2012 [facility] [address] [id number] [address] [place] [address], [place] [address] 17 Jan, 2012 [facility] [address] [id number] [address] [place] [address], [place] [address] 16 Jan, 2012 [facility] [address] [id number] [address] [place] [address], [place] [address] Dec, [facility] [address] [id number] [address] [place] [address], [place] [address] 13 Jan, 2012 [facility] [address] [id number] [address] [place] [address], [place] [address] 02 Jan, 2012 [facility] [address] [id number] [address] [place] [address], [place] [address] Dec, [facility] [address] [id number] [address] [place] [address], [place] [address] Dec, [facility] [address] [id number] [address] [place] [address], [place] [address] Dec, [facility] [address] [id number] [address] [place] [address], [place] [address] 18 Dec, 2011 [facility] [address] [id number] [address] [place] [address], [place] [address] Dec, [facility] [address] [id number] [address] [place] [address], [place] [address] Dec, [facility] [address] [id number] [address] [place] [address], [place] [address] Dec, [facility] [address] [id number] [address] [place] [address], [place] [address] October, [facility] [address] [id number] [address] [place] [address], [place] [address] October, [facility] [address] [id number] [address] [place] [address], [place] [address] October, [facility] [address] [id number] [address] [place] [address], [place] [address] October, [facility] [address] [id number] [address] [place] [address], [place] [address] October, [facility] [address] [id number] [address] [place] [address], [place] [address] October, [facility] [address] [id number] [address] [place] [address], [place] [address] Oct, [facility] [address] [id number] [address] [place] [address], [place] [address] Oct, [facility] [address] [id number] [address] [place] [address], [place] [address] Oct, [facility] [address] [id number] [address] [place] [address], [place] [address] Oct, [facility] [address] [id number] [address] [place] [address], [place] [address] Oct, [facility] [address] [id number] [address] [place] [address], [place] [address] Oct, [facility] [address] [id number] [address] [place] [address], [place] [address] 02 Oct, 2011 [facility] [address] [id number] [address] [place] [address], [place] [address] 29 Sep, 2011 [facility] [address] [id number] [address] [place] [address], [place] [address] 29 Sep, 2011 [facility] [address] [id number] [address] [place] [address], [place] [address] 19 Sep, 2011 [facility] [address] [id number] [address] [place] [address], [place] [address] 13 Sep, 2011 [facility] [address] [id number] [address] [place] [address], [place] [address] 05 Sep, 2011 [facility] [address] [id number] [address] [place] [address], [place] [address] 05 Sep, 2011 [facility] [address] [id number] [address] [place] [address], [place] [address] 27 Aug, 2011 [facility] [address] [id number] [address] [place] [address], [place] [address] 20 Aug, 2011 [facility] [address] [id number] [address] [place] [address], [place] [address] 08 Aug, 2011 [facility] [address] [id number] [address] [place] [address], [place] [address] 31 Jul, 2011 [facility] [address] [id number] [address] [place] [address], [place] [address] Jul, [facility] [address] [id number] [address] [place] [address], [place] [address] 23 Jul, 2011 [facility] [address] [id number] [address] [place] [address], [place] [address] 10 Jul, 2011 [facility] [address] [id number] [address] [place] [address], [place] [address] 28 Jun, 2011 [facility] [address] [id number] [address] [place] [address], [place] [address] Jun, [facility] [address] [id number] [address] [place] [address], [place] [address] May, [facility] [address] [id number] [address] [place] [address], [place] [address] May, [facility] [address] [id number] [address] [place] [address], [place] [address] May, [facility] [address] [id number] [address] [place] [address], [place] [address] May, [facility] [address] [id number] [address] [place] [address], [place] [address] May, [facility] [address] [id number] [address] [place] [address], [place] [address] Apr, [facility] [address] [id number] [address] [place] [address], [place] [address] Apr, [facility] [address] [id number] [address] [place] [address], [place] [address] Apr, [facility] [address] [id number] [address] [place] [address], [place] [address] Jan, [facility] [address] [id number] [address] [place] [address], [place] [address] Dec, [facility] [address] [id number] [address] [place] [address], [place] [address] October, [facility] [address] [id number] [address] [place] [address], [place] [address] Jun, [facility] [address] [id number] [address] [place] [address], [place] [address] 23 Apr, 2009 [facility] [address] [id number] [address] [place] [address], [place] [address] Apr, [facility] [address] [id number] [address] [place] [address], [place] [address] Apr, [facility] [address] [id number] [address] [place] [address], [place] [address] Jun, IMMUNIZATIONS No Known Immunizations SOCIAL HISTORY [...]
--- OUTSIDE RECORDS SUMMARY | 2020-01-25 12:40 | XMS REPORT ---
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 Name Role Phone MELISA Iraheta Unavailable PROBLEMS Type Condition ICD9-CM Code [id number] Code Onset Dates Condition S tatus SNOMED Code Problem Attention deficit R41.840 Active 76 518996 Problem Chronic hepatitis C without hepatic coma B18.2 Active 633226778 Problem Cannabis abuse F12.10 Active 82740 009 Problem Bipolar disorder, in partial remission, most rec ent episode hypomanic F31.71 Active 991638982 Problem Attention deficit hyperactivity disorder (ADHD), combi luciano type F90.2 Active 30842720 Problem Bipolar 1 disorder F31.9 Active 3 26494706 Problem H/O laminectomy Z98.89 Active 1616 39848 Problem Other chronic pain G89.29 Active 8 8245065 Problem Anxiety disorder, unspecified type F41.9 Active 907133822 ALLERGIES No Information ENCOUNTERS Encounter Location Date Diagnosis [place] [address] [facility] [id number] [address] [place] [address] Dec, Other chronic pain G89.29 an d Low back pain M54.5 [facility] [address] [facility] [id number] [address] [place] [address] October, [facility] [address] [facility] [id number] [address] [place] [address] October, [facility] [address] [facility] [id number] [address] [place] [address] October, [facility] [address] [facility] [id number] [address] [place] [address] October, Other chronic pain G89.29 an d Chronic hepatitis C without hepatic coma B18.2 [facility] [address] [id number] [address] [place] [address] Aug, Bipolar disorder, in partial remission, most recent episode hypomanic F31.71 ; Attention deficit hyperactivity disorder (ADHD), combined type F90.2 and Anxiety disorder, unspecified type F41.9 [facility] [address] [id number] [address] [place] [address] Aug, [facility] [address] [id number] [address] [place] [address] Aug, Bipolar disorder, in partial remission, most recent episode hypomanic F31.71 [facility] [address] [id number] [address] [place] [address] Aug, [facility] [address] [id number] [address] [place] [address] Aug, Bipolar disorder, in partial remission, most recent episode hypomanic F31.71 [facility] [address] [id number] [address] [place] [address] Aug, Bipolar disorder, in partial remission, most recent episode hypomanic F31.71 ; Attention deficit hyperactivity disorder (ADHD), combined type F90.2 and Anxiety disorder, unspecified type F41.9 [facility] [address] [id number] [address] [place] [address] Aug, Low back pain M54.5 and Pain in left wrist M25.532 [facility] [address] [id number] [address] [place] [address] Aug, [facility] [address] [id number] [address] [place] [address] Jun, [facility] [address] [id number] [address] [place] [address] Apr, Bipolar disorder, in partial remission, most recent episode hypomanic F31.71 [facility] [address] [id number] [address] [place] [address] Apr, [facility] [address] [id number] [address] [place] [address] Apr, Bipolar disorder, in partial remission, most recent episode hypomanic F31.71 ; Attention deficit hyperactivity disorder (ADHD), combined type F90.2 ; Anxiety disorder, unspecified type F41.9 and Other long-term (current) 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 Z79.899 [facility] [address] [id number] [address] [place] [address] Apr, Bipolar disorder, in partial remission, most recent episode hypomanic F31.71 [facility] [address] [id number] [address] [place] [address] Apr, Bipolar disorder, in partial remission, most recent episode hypomanic F31.71 [facility] [address] [id number] [address] [place] [address] Mar, [facility] [address] [id number] [address] [place] [address] Mar, Bipolar disorder, in partial remission, most recent episode hypomanic F31.71 ; Encounter for immunization Z23 and Low back pain M54.5 [facility] [address] [id number] [address] [place] [address] Mar, Bipolar disorder, in partial remission, most recent episode hypomanic F31.71 [facility] [address] [id number] [address] [place] [address] Mar, Bipolar disorder, in partial remission, most recent episode hypomanic F31.71 [facility] [address] [id number] [address] [place] [address] Jan, Bipolar disorder, in partial remission, most recent episode hypomanic F31.71 [facility] [address] [id number] [address] [place] [address] Jan, Bipolar disorder, in partial remission, most recent episode hypomanic F31.71 [facility] [address] [id number] [address] [place] [address] Dec, Bipolar disorder, in partial remission, most recent episode hypomanic F31.71 [facility] [address] [id number] [address] [place] [address] Dec, Bipolar disorder, in partial remission, most recent episode hypomanic F31.71 ; Attention deficit hyperactivity disorder (ADHD), combined type F90.2 ; Anxiety disorder, unspecified type F41.9 and 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 [facility] [address] [id number] [address] [place] [address] Dec, Bipolar disorder, in partial remission, most recent episode hypomanic F31.71 [facility] [address] [id number] [address] [place] [address] Dec, Bipolar disorder, in partial remission, most recent episode hypomanic F31.71 [facility] [address] [id number] [address] [place] [address] October, Bipolar disorder, in partial remission, most recent episode hypomanic F31.71 [facility] [address] [id number] [address] [place] [address] October, [facility] [address] [id number] [address] [place] [address] October, [facility] [address] [id number] [address] [place] [address] Oct, Bipolar disorder, in partial remission, most recent episode hypomanic F31.71 ; Attention deficit hyperactivity disorder (ADHD), combined type F90.2 ; Anxiety disorder, unspecified type F41.9 and Encounter for drug screening Z02.83 [facility] [address] [id number] [address] [place] [address] Oct, Bipolar disorder, in partial remission, most recent episode hypomanic F31.71 [facility] [address] [id number] [address] [place] [address] Oct, Bipolar disorder, in partial remission, most recent episode hypomanic F31.71 [facility] [address] [id number] [address] [place] [address] Aug, Bipolar disorder, in partial remission, most recent episode hypomanic F31.71 [facility] [address] [id number] [address] [place] [address] 15 Aug, 2017 Bipolar disorder, in partial remission, most recent episode hypomanic F31.71 [facility] [address] [id number] [address] [place] [address] Aug, Bipolar disorder, in partial remission, most recent episode hypomanic F31.71 [facility] [address] [id number] [address] [place] [address] Jul, Bipolar disorder, in partial remission, most recent episode hypomanic F31.71 ; Attention deficit hyperactivity disorder (ADHD), combined type F90.2 and Anxiety disorder, unspecified type F41.9 [facility] [address] [facility] [id number] [address] [place] [address] Jul, Bipolar disorder, in partial remission, most recent episode hypomanic F31.71 [facility] [address] [facility] [id number] [address] [place] [address] Jun, Bipolar disorder, in partial remission, most recent episode hypomanic F31.71 [facility] [address] [id number] [address] [place] [address] May, Bipolar disorder, in partial remission, most recent episode hypomanic F31.71 [facility] [address] [facility] [id number] [address] [place] [address] May, Bipolar disorder, in partial remission, most recent episode hypomanic F31.71 [facility] [address] [facility] [id number] [address] [place] [address] Apr, [facility] [address] [facility] [id number] [address] [place] [address] Apr, Bipolar disorder, in partial remission, most recent episode hypomanic F31.71 ; Attention deficit hyperactivity disorder (ADHD), combined type F90.2 ; Anxiety disorder, unspecified type F41.9 and Cannabis abuse F12.10 [facility] [address] [id number] [address] [place] [address] 13 Apr, 2017 Attention deficit hyperactiv ity disorder (ADHD), combined type F90.2 [facility] [address] [id number] [address] [place] [address] Mar, Attention deficit hyperactiv ity disorder (ADHD), combined type F90.2 [facility] [address] [id number] [address] [place] [address] 14 Mar, 2017 Anxiety disorder, unspecifie d type F41.9 [facility] [address] [id number] [address] [place] [address] 18 Jan, 2017 Attention deficit hyperactiv ity disorder (ADHD), combined type F90.2 [facility] [address] [facility] [id number] [address] [place] [address] Jan, Anxiety disorder, unspecifie d type F41.9 [facility] [address] [facility] [id number] [address] [place] [address] Jan, Other chronic pain G89.29 ; Chronic hepatitis C without hepatic coma B18.2 and Bipolar 1 disorder F31.9 [facility] [address] [facility] [id number] [address] [place] [address] Dec, Attention deficit hyperactiv ity disorder (ADHD), combined type F90.2 [facility] [address] [facility] [id number] [address] [place] [address] 24 Dec, 2016 Bipolar disorder, in partial remission, most recent episode hypomanic F31.71 ; Attention deficit hyperactivity disorder (ADHD), combined type F90.2 and Anxiety disorder, unspecified type F41.9 [facility] [address] [facility] [id number] [address] [place] [address] Dec, Bipolar disorder, in partial remission, most recent episode hypomanic F31.71 ; Attention deficit hyperactivity disorder (ADHD), combined type F90.2 and Anxiety disorder, unspecified type F41.9 [facility] [address] [id number] [address] [place] [address] Dec, Bipolar 1 disorder F31.9 and Attention deficit R41.840 [facility] [address] [facility] [id number] [address] [place] [address] Oct, Other chronic pain G89.29 ; Alopecia L65.9 and Screening, lipid Z13.220 [facility] [address] [place] [id number] [address] [place] [address] Oct, [facility] [address] [place] [id number] [address] [place] [address] Aug, [facility] [address] [place] [id number] [address] [place] [address] Aug, Eustachian tube dysfunction, right H69.81 ; Vertigo R42 and Other chronic pain G89.29 [facility] [address] [place] [id number] [address] [place] [address] Aug, [facility] [address] [place] [id number] [address] [place] [address] Jun, [facility] [address] [place] [id number] [address] [place] [address] Jun, Low back pain M54.5 and Othe r chronic pain G89.29 [facility] [address] [place] [id number] [address] [place] [address] Jun, [facility] [address] [facility] [id number] [address] [place] [address] May, [facility] [address] [place] [id number] [address] [place] [address] Jan, [facility] [address] [place] [id number] [address] [place] [address] Dec, [facility] [address] [place] [id number] [address] [place] [address] Dec, [facility] [address] [facility] [id number] [address] [place] [address] Jun, [facility] [address] [facility] [id number] [address] [place] [address] Apr, Eustachian tube dysfunction, unspecified laterality H69.80 ; Hot flashes N95.1 and Encounter for immunization Z23 [facility] [address] [facility] [id number] [address] [place] [address] Jan, [facility] [address] [facility] [id number] [address] [place] [address] Jan, [facility] [address] [facility] [id number] [address] [place] [address] Jan, [facility] [address] [place] [id number] [address] [place] [address] Jan, [facility] [address] [place] [id number] [place] [address] Jan, Encounter to establish care V65.8 ; Bipolar 1 disorder 296.7 ; Abdominal pain 789.00 ; Constipation 564.00 ; Hard of hearing 389.9 and Drug abuse 305.90 [facility] [address] [facility] [id number] [address] [place] [address] Dec, [facility] [address] [facility] [id number] [address] [place] [address] October, [facility] [address] [facility] [id number] [address] [place] [address] October, [facility] [address] [facility] [id number] [address] [place] [address] Oct, [facility] [address] [facility] [id number] [address] [place] [address] Oct, [facility] [address] [facility] [id number] [address] [place] [address] Oct, [facility] [address] [id number] [address] [place] [address], [place] [address] Aug, [facility] [address] [id number] [address] [place] [address], [place] [address] Aug, 2014 [facility] [address] [id number] [address] [place] [address], [place] [address] Aug, 2014 [facility] [address] [id number] [address] [place] [address], [place] [address] Aug, 2014 [facility] [address] [id number] [address] [place] [address], [place] [address] Aug, 2014 [facility] [address] [id number] [address] [place] [address], [place] [address] Aug, 2014 [facility] [address] [id number] [address] [place] [address], [place] [address] Aug, 2014 [facility] [address] [id number] [address] [place] [address], [place] [address] Aug, 2014 [facility] [address] [id number] [address] [place] [address], [place] [address] Aug, 2014 [facility] [address] [id number] [address] [place] [address], [place] [address] Aug, 2014 [facility] [address] [id number] [address] [place] [address], [place] [address] Aug, 2014 [facility] [address] [id number] [address] [place] [address], [place] [address] Aug, 2014 [facility] [address] [id number] [address] [place] [address], [place] [address] Aug, 2014 [facility] [address] [id number] [address] [place] [address], [place] [address] Aug, 2014 [facility] [address] [id number] [address] [place] [address], [place] [address] Aug, 2014 [facility] [address] [id number] [address] [place] [address], [place] [address] Jul, [facility] [address] [id number] [address] [place] [address], [place] [address] Jul, [facility] [address] [id number] [address] [place] [address], [place] [address] Jul, [facility] [address] [id number] [address] [place] [address], [place] [address] Jul, [facility] [address] [id number] [address] [place] [address], [place] [address] Jul, [facility] [address] [id number] [address] [place] [address], [place] [address] Jul, [facility] [address] [id number] [address] [place] [address], [place] [address] Jul, [facility] [address] [id number] [address] [place] [address], [place] [address] Jul, [facility] [address] [id number] [address] [place] [address], [place] [address] Jun, [facility] [address] [id number] [address] [place] [address], [place] [address] Jun, [facility] [address] [id number] [address] [place] [address], [place] [address] Jun, [facility] [address] [id number] [address] [place] [address], [place] [address] 29 Jun, 2014 [facility] [address] [id number] [address] [place] [address], [place] [address] 18 Jun, 2014 [facility] [address] [id number] [address] [place] [address], [place] [address] Jun, [facility] [address] [id number] [address] [place] [address], [place] [address] Jun, [facility] [address] [id number] [address] [place] [address], [place] [address] Jun, [facility] [address] [id number] [address] [place] [address], [place] [address] Jun, [facility] [address] [id number] [address] [place] [address], [place] [address] Jun, [facility] [address] [id number] [address] [place] [address], [place] [address] Jun, [facility] [address] [id number] [address] [place] [address], [place] [address] May, [facility] [address] [id number] [address] [place] [address], [place] [address] May, [facility] [address] [id number] [address] [place] [address], [place] [address] May, [facility] [address] [id number] [address] [place] [address], [place] [address] May, [facility] [address] [id number] [address] [place] [address], [place] [address] May, [facility] [address] [id number] [address] [place] [address], [place] [address] May, [facility] [address] [id number] [address] [place] [address], [place] [address] May, [facility] [address] [id number] [address] [place] [address], [place] [address] Apr, [facility] [address] [id number] [address] [place] [address], [place] [address] Apr, [facility] [address] [id number] [address] [place] [address], [place] [address] Apr, [facility] [address] [id number] [address] [place] [address], [place] [address] Apr, [facility] [address] [id number] [address] [place] [address], [place] [address] Apr, [facility] [address] [id number] [address] [place] [address], [place] [address] Apr, [facility] [address] [id number] [address] [place] [address], [place] [address] Mar, [facility] [address] [id number] [address] [place] [address], [place] [address] Mar, [facility] [address] [id number] [address] [place] [address], [place] [address] Mar, [facility] [address] [id number] [address] [place] [address], [place] [address] Mar, [facility] [address] [id number] [address] [place] [address], [place] [address] Mar, [facility] [address] [id number] [address] [place] [address], [place] [address] Mar, [facility] [address] [id number] [address] [place] [address], [place] [address] Jan, [facility] [address] [id number] [address] [place] [address], [place] [address] Jan, [facility] [address] [id number] [address] [place] [address], [place] [address] Jan, [facility] [address] [id number] [address] [place] [address], [place] [address] Jan, [facility] [address] [id number] [address] [place] [address], [place] [address] Dec, [facility] [address] [id number] [address] [place] [address], [place] [address] Dec, [facility] [address] [id number] [address] [place] [address], [place] [address] Dec, [facility] [address] [id number] [address] [place] [address], [place] [address] Dec, [facility] [address] [id number] [address] [place] [address], [place] [address] Dec, [facility] [address] [id number] [address] [place] [address], [place] [address] Dec, [facility] [address] [id number] [address] [place] [address], [place] [address] Dec, [facility] [address] [id number] [address] [place] [address], [place] [address] Dec, [facility] [address] [id number] [address] [place] [address], [place] [address] Dec, [facility] [address] [id number] [address] [place] [address], [place] [address] Dec, [facility] [address] [id number] [address] [place] [address], [place] [address] Dec, [facility] [address] [id number] [address] [place] [address], [place] [address] Dec, [facility] [address] [id number] [address] [place] [address], [place] [address] October, [facility] [address] [id number] [address] [place] [address], [place] [address] October, [facility] [address] [id number] [address] [place] [address], [place] [id number] October, [facility] [address] [id number] [address] [place] [address], [place] [address] October, [facility] [address] [id number] [address] [place] [address], [place] [address] October, [facility] [address] [id number] [address] [place] [address], [place] [address] October, [facility] [address] [id number] [address] [place] [address], [place] [address] Oct, [facility] [address] [id number] [address] [place] [address], [place] [address] Oct, [facility] [address] [id number] [address] [place] [address], [place] [address] Oct, [facility] [address] [id number] [facility] [place] [address] Oct, [facility] [address] [id number] [facility] [place] [address] Oct, [facility] [address] [id number] [facility] [place] [address] Oct, [facility] [address] [id number] [address] [place] [address], [place] [address] Oct, [facility] [address] [id number] [facility] [place] [address] Oct, [facility] [address] [id number] [address] [place] [address], [place] [address] Oct, [facility] [address] [id number] [address] [place] [address], [place] [address] Oct, [facility] [address] [id number] [address] [place] [address], [place] [address] Oct, [facility] [address] [id number] [address] [place] [address], [place] [address] Oct, [facility] [address] [id number] [address] [place] [address], [place] [address] Aug, [facility] [address] [id number] [address] [place] [address], [place] [address] 15 Aug, 2013 [facility] [address] [id number] [address] [place] [address], [place] [address] Aug, [facility] [address] [id number] [address] [place] [address], [place] [address] Aug, [facility] [address] [id number] [address] [place] [address], [place] [address] 05 Aug, 2013 [facility] [address] [id number] [address] [place] [address], [place] [address] 05 Aug, 2013 [facility] [address] [id number] [address] [place] [address], [place] [address] Aug, [facility] [address] [id number] [facility] [place] [address] Aug, [facility] [address] [id number] [address] [place] [address], [place] [address] Aug, [facility] [address] [id number] [address] [place] [address], [place] [address] Aug, [facility] [address] [id number] [address] [place] [address], [place] [address] Aug, [facility] [address] [id number] [address] [place] [address], [place] [address] Aug, [facility] [address] [id number] [address] [place] [address], [place] [address] Aug, [facility] [address] [id number] [address] [place] [address], [place] [address] 20 Aug, 2013 [facility] [address] [id number] [address] [place] [address], [place] [address] 14 Aug, 2013 [facility] [address] [id number] [address] [place] [address], [place] [address] Aug, [facility] [address] [id number] [address] [place] [address], [place] [address] Aug, [facility] [address] [id number] [address] [place] [address], [place] [address] Aug, [facility] [address] [id number] [address] [place] [address], [place] [address] 07 Aug, 2013 [facility] [address] [id number] [address] [place] [address], [place] [address] 07 Aug, 2013 [facility] [address] [id number] [address] [place] [address], [place] [address] 06 Aug, 2013 [facility] [address] [id number] [address] [place] [address], [place] [address] Aug, [facility] [address] [id number] [address] [place] [address], [place] [address] Aug, [facility] [address] [id number] [address] [place] [address], [place] [address] Aug, [facility] [address] [id number] [address] [place] [address], [place] [address] Aug, [facility] [address] [id number] [address] [place] [address], [place] [address] Jul, [facility] [address] [id number] [address] [place] [address], [place] [address] Jul, [facility] [address] [id number] [address] [place] [address], [place] [address] Jul, [facility] [address] [id number] [address] [place] [address], [place] [address] Jul, [facility] [address] [id number] [address] [place] [address], [place] [address] Jul, [facility] [address] [id number] [address] [place] [address], [place] [address] Jul, [facility] [address] [id number] [address] [place] [address], [place] [address] Jul, [facility] [address] [id number] [address] [place] [address], [place] [address] Jul, [facility] [address] [id number] [address] [place] [address], [place] [address] Jul, [facility] [address] [id number] [address] [place] [address], [place] [address] Jul, [facility] [address] [id number] [address] [place] [address], [place] [address] Jul, [facility] [address] [id number] [address] [place] [address], [place] [address] Jul, [facility] [address] [id number] [address] [place] [address], [place] [address] Jul, [facility] [address] [id number] [address] [place] [address], [place] [address] Jul, [facility] [address] [id number] [address] [place] [address], [place] [address] Jul, [facility] [address] [id number] [address] [place] [address], [place] [address] Jul, [facility] [address] [id number] [address] [place] [address], [place] [address] Jul, [facility] [address] [id number] [address] [place] [address], [place] [address] Jul, [facility] [address] [id number] [address] [place] [address], [place] [address] Jul, [facility] [address] [id number] [address] [place] [address], [place] [address] Jul, [facility] [address] [id number] [address] [place] [address], [place] [address] Jun, [facility] [address] [id number] [address] [place] [address], [place] [address] Jun, [facility] [address] [id number] [address] [place] [address], [place] [address] Jun, [facility] [address] [id number] [address] [place] [address], [place] [address] Jun, [facility] [address] [id number] [address] [place] [address], [place] [address] Jun, [facility] [address] [id number] [address] [place] [address], [place] [address] Jun, [facility] [address] [id number] [address] [place] [address], [place] [address] Jun, [facility] [address] [id number] [address] [place] [address], [place] [address] Jun, [facility] [address] [id number] [address] [place] [address], [place] [address] 24 Jun, 2013 [facility] [address] [id number] [address] [place] [address], [place] [address] Jun, [facility] [address] [id number] [address] [place] [address], [place] [address] Jun, [facility] [address] [id number] [address] [place] [address], [place] [address] Jun, [facility] [address] [id number] [address] [place] [address], [place] [address] Jun, [facility] [address] [id number] [address] [place] [address], [place] [address] Jun, [facility] [address] [id number] [address] [place] [address], [place] [address] Jun, [facility] [address] [id number] [address] [place] [address], [place] [address] Jun, [facility] [address] [id number] [address] [place] [address], [place] [address] 18 Jun, 2013 [facility] [address] [id number] [address] [place] [address], [place] [address] Jun, [facility] [address] [id number] [address] [place] [address], [place] [address] 17 Jun, 2013 [facility] [address] [id number] [address] [place] [address], [place] [address] 13 Jun, 2013 [facility] [address] [id number] [address] [place] [address], [place] [address] 12 Jun, 2013 [facility] [address] [id number] [address] [place] [address], [place] [address] Jun, [facility] [address] [id number] [address] [place] [address], [place] [address] 09 Jun, 2013 [facility] [address] [id number] [address] [place] [address], [place] [address] Jun, [facility] [address] [id number] [address] [place] [address], [place] [address] Jun, [facility] [address] [id number] [address] [place] [address], [place] [address] Jun, [facility] [address] [id number] [address] [place] [address], [place] [address] Jun, [facility] [address] [id number] [address] [place] [address], [place] [address] May, [facility] [address] [id number] [address] [place] [address], [place] [address] May, [facility] [address] [id number] [address] [place] [address], [place] [address] May, [facility] [address] [id number] [address] [place] [address], [place] [address] May, [facility] [address] [id number] [address] [place] [address] May, [facility] [address] [id number] [address] [place] [address], [place] [address] May, [facility] [address] [id number] [address] [place] [address] Apr, [facility] [address] [id number] [address] [place] [address] Apr, [facility] [address] [id number] [address] [place] [address] 30 Apr, 2013 [facility] [address] [id number] [address] [place] [address], [place] [address] 30 Apr, 2013 [facility] [address] [id number] [address] [place] [address] Apr, [facility] [address] [id number] [address] [place] [address] 15 Apr, 2013 [facility] [address] [id number] [address] [place] [address], [place] [address] 15 Apr, 2013 [facility] [address] [id number] [address] [place] [address], [place] [address] 01 Apr, 2013 [facility] [address] [id number] [address] [place] [address], [place] [address] 26 Mar, 2012 [facility] [address] [id number] [address] [place] [address], [place] [address] 24 Mar, 2012 [facility] [address] [id number] [address] [place] [address], [place] [address] 17 Mar, 2012 [facility] [address] [id number] [address] [place] [address], [place] [address] 17 Mar, 2012 [facility] [address] [id number] [address] [place] [address], [place] [address] 11 Mar, 2013 [facility] [address] [id number] [address] [place] [address], [place] [address] 10 Mar, 2012 [facility] [address] [id number] [address] [place] [address], [place] [address] 05 Mar, 2013 [facility] [address] [id number] [address] [place] [address], [place] [address] 04 Mar, 2013 [facility] [address] [id number] [address] [place] [address], [place] [address] 20 Jan, 2013 [facility] [address] [id number] [address] [place] [address], [place] [address] Jan, [facility] [address] [id number] [address] [place] [address], [place] [address] 14 Jan, 2013 [facility] [address] [id number] [address] [place] [address], [place] [address] 12 Jan, 2013 [facility] [address] [id number] [address] [place] [address], [place] [address] Jan, [facility] [address] [id number] [address] [place] [address], [place] [address] 05 Jan, 2013 [facility] [address] [id number] [facility] [place] [address] 31 Dec, 2012 [facility] [address] [id number] [address] [place] [address], [place] [address] 24 Dec, 2012 [facility] [address] [id number] [address] [place] [address], [place] [address] 22 Dec, 2012 [facility] [address] [id number] [address] [place] [address], [place] [address] 19 Dec, 2012 [facility] [address] [id number] [address] [place] [address], [place] [address] 18 Dec, 2012 [facility] [address] [id number] [address] [place] [address], [place] [address] 17 Dec, 2012 [facility] [address] [id number] [address] [place] [address], [place] [address] 16 Dec, 2012 [facility] [address] [id number] [address] [place] [address], [place] [address] 16 Dec, 2012 [facility] [address] [id number] [address] [place] [address], [place] [address] 15 Dec, 2012 [facility] [address] [id number] [address] [place] [address], [place] [address] 10 Dec, 2012 [facility] [address] [id number] [address] [place] [address], [place] [address] 28 Dec, 2012 [facility] [address] [id number] [address] [place] [address], [place] [address] 25 Dec, 2012 [facility] [address] [id number] [address] [place] [address], [place] [address] 19 Dec, 2012 [facility] [address] [id number] [address] [place] [address], [place] [address] 17 Dec, 2012 [facility] [address] [id number] [address] [place] [address], [place] [address] 13 Dec, 2012 [facility] [address] [id number] [address] [place] [address], [place] [address] Dec, [facility] [address] [id number] [address] [place] [address], [place] [address] October, [facility] [address] [id number] [address] [place] [address], [place] [address] October, [facility] [address] [id number] [address] [place] [address], [place] [address] October, [facility] [address] [id number] [address] [place] [address], [place] [address] October, [facility] [address] [id number] [address] [place] [address], [place] [address] October, [facility] [address] [id number] [address] [place] [address], [place] [address] October, [facility] [address] [id number] [address] [place] [address], [place] [address] October, [facility] [address] [id number] [address] [place] [address], [place] [address] Oct, [facility] [address] [id number] [address] [place] [address], [place] [address] Oct, [facility] [address] [id number] [address] [place] [address], [place] [address] Oct, [facility] [address] [id number] [address] [place] [address], [place] [address] Oct, [facility] [address] [id number] [address] [place] [address], [place] [address] Oct, [facility] [address] [id number] [address] [place] [address], [place] [address] 18 Oct, 2012 [facility] [address] [id number] [address] [place] [address], [place] [address] 17 Oct, 2012 [facility] [address] [id number] [address] [place] [address], [place] [address] 15 Oct, 2012 [facility] [address] [id number] [address] [place] [address], [place] [address] Oct, [facility] [address] [id number] [address] [place] [address], [place] [address] Oct, [facility] [address] [id number] [address] [place] [address], [place] [address] Oct, [facility] [address] [id number] [address] [place] [address], [place] [address] Oct, [facility] [address] [id number] [address] [place] [address], [place] [address] Aug, [facility] [address] [id number] [address] [place] [address], [place] [address] Aug, [facility] [address] [id number] [address] [place] [address], [place] [address] Aug, [facility] [address] [id number] [address] [place] [address], [place] [address] Aug, [facility] [address] [id number] [address] [place] [address], [place] [address] Aug, [facility] [address] [id number] [address] [place] [address], [place] [address] Aug, [facility] [address] [id number] [address] [place] [address], [place] [address] Aug, [facility] [address] [id number] [address] [place] [address], [place] [address] 14 Aug, 2012 [facility] [address] [id number] [address] [place] [address], [place] [address] Aug, [facility] [address] [id number] [address] [place] [address], [place] [address] Aug, [facility] [address] [id number] [address] [place] [address], [place] [address] 29 Jul, 2012 [facility] [address] [id number] [address] [place] [address], [place] [address] Jul, [facility] [address] [id number] [address] [place] [address], [place] [address] 08 Jul, 2012 [facility] [address] [id number] [address] [place] [address], [place] [address] 20 Jun, 2012 [facility] [address] [id number] [address] [place] [address], [place] [address] 18 Jun, 2012 [facility] [address] [id number] [address] [place] [address], [place] [address] 18 Jun, 2012 [facility] [address] [id number] [address] [place] [address], [place] [address] 18 Jun, 2012 [facility] [address] [id number] [address] [place] [address], [place] [address] 18 Jun, 2012 [facility] [address] [id number] [address] [place] [address], [place] [address] 14 Jun, 2012 [facility] [address] [id number] [address] [place] [address], [place] [address] 14 Jun, 2012 [facility] [address] [id number] [address] [place] [address], [place] [address] 13 Jun, 2012 [facility] [address] [id number] [address] [place] [address], [place] [address] 13 Jun, 2012 [facility] [address] [id number] [address] [place] [address], [place] [address] 11 Jun, 2012 [facility] [address] [id number] [address] [place] [address], [place] [address] 11 Jun, 2012 [facility] [address] [id number] [address] [place] [address], [place] [address] 11 Jun, 2012 [facility] [address] [id number] [address] [place] [address], [place] [address] 11 Jun, 2012 [facility] [address] [id number] [address] [place] [address], [place] [address] 07 Jun, 2012 [facility] [address] [id number] [address] [place] [address], [place] [address] 07 Jun, 2012 [facility] [address] [id number] [address] [place] [address], [place] [address] Jun, [facility] [address] [id number] [address] [place] [address], [place] [address] Jun, [facility] [address] [id number] [address] [place] [address], [place] [address] Jun, [facility] [address] [id number] [address] [place] [address], [place] [address] Jun, [facility] [address] [id number] [address] [place] [address], [place] [address] Jun, [facility] [address] [id number] [address] [place] [address], [place] [address] Jun, [facility] [address] [id number] [address] [place] [address], [place] [address] Jun, [facility] [address] [id number] [address] [place] [address], [place] [address] Jun, [facility] [address] [id number] [address] [place] [address], [place] [address] May, [facility] [address] [id number] [address] [place] [address], [place] [address] May, [facility] [address] [id number] [address] [place] [address], [place] [address] May, [facility] [address] [id number] [address] [place] [address], [place] [address] May, [facility] [address] [id number] [address] [place] [address], [place] [address] May, [facility] [address] [id number] [address] [place] [address], [place] [address] May, [facility] [address] [id number] [address] [place] [address], [place] [address] May, [facility] [address] [id number] [address] [place] [address], [place] [address] May, [facility] [address] [id number] [address] [place] [address], [place] [address] Apr, [facility] [address] [id number] [address] [place] [address], [place] [address] Apr, [facility] [address] [id number] [address] [place] [address], [place] [address] Apr, [facility] [address] [id number] [address] [place] [address], [place] [address] Apr, [facility] [address] [id number] [address] [place] [address], [place] [address] Apr, [facility] [address] [id number] [address] [place] [address], [place] [address] Apr, [facility] [address] [id number] [address] [place] [address], [place] [address] Apr, [facility] [address] [address] [id number] [address] [place] [address], [place] [address] Apr, [facility] [address] [id number] [address] [place] [address], [place] [address] Apr, [facility] [address] [id number] [address] [place] [address], [place] [address] Apr, [facility] [address] [id number] [address] [place] [address], [place] [address] Apr, [facility] [address] [id number] [address] [place] [address], [place] [address] Apr, [facility] [address] [id number] [address] [place] [address], [place] [address] Mar, [facility] [address] [id number] [address] [place] [address], [place] [address] 18 Mar, 2012 [facility] [address] [id number] [address] [place] [address] Mar, [facility] [address] [id number] [address] [place] [address] Mar, [facility] [address] [id number] [address] [place] [id number] Mar, [facility] [address] [id number] [address] [place] [id number] Mar, [facility] [address] [id number] [address] [place] [address] Mar, [facility] [address] [id number] [address] [place] [address], [place] [address] Jan, [facility] [address] [id number] [address] [place] [address] Jan, [facility] [address] [id number] [address] [place] [id number] Jan, [facility] [address] [id number] [address] [place] [id number] Jan, [facility] [address] [id number] [address] [place] [address], [place] [address] Jan, [facility] [address] [id number] [address] [place] [id number] Jan, [facility] [address] [id number] [address] [place] [address] Jan, [facility] [address] [id number] [address] [place] [address] Jan, [facility] [address] [id number] [address] [place] [address], [place] [address] Jan, [facility] [address] [id number] [address] [place] [address], [place] [address] Jan, [facility] [address] [id number] [address] [place] [address] Jan, [facility] [address] [id number] [address] [place] [address], [place] [address] 28 Jan, 2012 [facility] [address] [id number] [address] [place] [address], [place] [address] 27 Jan, 2012 [facility] [address] [id number] [address] [place] [address], [place] [address] 26 Jan, 2012 [facility] [address] [id number] [address] [place] [address], [place] [address] 26 Jan, 2012 [facility] [address] [id number] [address] [place] [address], [place] [address] 20 Jan, 2012 [facility] [address] [id number] [address] [place] [address], [place] [address] 19 Jan, 2012 [facility] [address] [id number] [address] [place] [address], [place] [address] 18 Jan, 2012 [facility] [address] [id number] [address] [place] [address], [place] [address] 17 Jan, 2012 [facility] [address] [id number] [address] [place] [address], [place] [address] 16 Jan, 2012 [facility] [address] [id number] [address] [place] [address], [place] [address] Dec, [facility] [address] [id number] [address] [place] [address], [place] [address] 13 Jan, 2012 [facility] [address] [id number] [address] [place] [address], [place] [address] 02 Jan, 2012 [facility] [address] [id number] [address] [place] [address], [place] [address] Dec, [facility] [address] [id number] [address] [place] [address], [place] [address] Dec, [facility] [address] [id number] [address] [place] [address], [place] [address] Dec, [facility] [address] [id number] [address] [place] [address], [place] [address] 18 Dec, 2011 [facility] [address] [id number] [address] [place] [address], [place] [address] Dec, [facility] [address] [id number] [address] [place] [address], [place] [address] Dec, [facility] [address] [id number] [address] [place] [address], [place] [address] Dec, [facility] [address] [id number] [address] [place] [address], [place] [address] October, [facility] [address] [id number] [address] [place] [address], [place] [address] October, [facility] [address] [id number] [address] [place] [address], [place] [address] October, [facility] [address] [id number] [address] [place] [address], [place] [address] October, [facility] [address] [id number] [address] [place] [address], [place] [address] October, [facility] [address] [id number] [address] [place] [address], [place] [address] October, [facility] [address] [id number] [address] [place] [address], [place] [address] Oct, [facility] [address] [id number] [address] [place] [address], [place] [address] Oct, [facility] [address] [id number] [address] [place] [address], [place] [address] Oct, [facility] [address] [id number] [address] [place] [address], [place] [address] Oct, [facility] [address] [id number] [address] [place] [address], [place] [address] Oct, [facility] [address] [id number] [address] [place] [address], [place] [address] Oct, [facility] [address] [id number] [address] [place] [address], [place] [address] 02 Oct, 2011 [facility] [address] [id number] [address] [place] [address], [place] [address] 29 Sep, 2011 [facility] [address] [id number] [address] [place] [address], [place] [address] 29 Sep, 2011 [facility] [address] [id number] [address] [place] [address], [place] [address] 19 Sep, 2011 [facility] [address] [id number] [address] [place] [address], [place] [address] 13 Sep, 2011 [facility] [address] [id number] [address] [place] [address], [place] [address] 05 Sep, 2011 [facility] [address] [id number] [address] [place] [address], [place] [address] 05 Sep, 2011 [facility] [address] [id number] [address] [place] [address], [place] [address] 27 Aug, 2011 [facility] [address] [id number] [address] [place] [address], [place] [address] 20 Aug, 2011 [facility] [address] [id number] [address] [place] [address], [place] [address] 08 Aug, 2011 [facility] [address] [id number] [address] [place] [address], [place] [address] 31 Jul, 2011 [facility] [address] [id number] [address] [place] [address], [place] [address] Jul, [facility] [address] [id number] [address] [place] [address], [place] [address] 23 Jul, 2011 [facility] [address] [id number] [address] [place] [address], [place] [address] 10 Jul, 2011 [facility] [address] [id number] [address] [place] [address], [place] [address] 28 Jun, 2011 [facility] [address] [id number] [address] [place] [address], [place] [address] Jun, [facility] [address] [id number] [address] [place] [address], [place] [address] May, [facility] [address] [id number] [address] [place] [address], [place] [address] May, [facility] [address] [id number] [address] [place] [address], [place] [address] May, [facility] [address] [id number] [address] [place] [address], [place] [address] May, [facility] [address] [id number] [address] [place] [address], [place] [address] May, [facility] [address] [id number] [address] [place] [address], [place] [address] Apr, [facility] [address] [id number] [address] [place] [address], [place] [address] Apr, [facility] [address] [id number] [address] [place] [address], [place] [address] Apr, [facility] [address] [id number] [address] [place] [address], [place] [address] Jan, [facility] [address] [id number] [address] [place] [address], [place] [address] Dec, [facility] [address] [id number] [address] [place] [address], [place] [address] October, [facility] [address] [id number] [address] [place] [address], [place] [address] Jun, [facility] [address] [id number] [address] [place] [address], [place] [address] 23 Apr, 2009 [facility] [address] [id number] [address] [place] [address], [place] [address] Apr, [facility] [address] [id number] [address] [place] [address], [place] [address] Apr, [facility] [address] [id number] [address] [place] [address], [place] [address] Jun, IMMUNIZATIONS No Known Immunizations SOCIAL HISTORY [...]
--- OUTSIDE RECORDS SUMMARY | 2020-01-25 12:40 | XMS REPORT ---
Author Author Ana Brannon [facility] Address [address] [place] [address] Care Team Providers Care Bag Loader Name Role Phone ClovisBLANCHEEN Unavailable PROBLEMS Type Condition ICD9-CM Code NMT26-GO Code Onset Dates Condition S tatus SNOMED Code Problem Attention deficit R41.840 Active 76 058030 Problem Chronic hepatitis C without hepatic coma B18.2 Active 694982828 Problem Cannabis abuse F12.10 Active 95089 009 Problem Bipolar disorder, in partial remission, most rec ent episode hypomanic F31.71 Active 256661323 Problem Attention deficit hyperactivity disorder (ADHD), combi luciano type F90.2 Active 19370611 Problem Bipolar 1 disorder F31.9 Active 3 65225742 Problem H/O laminectomy Z98.89 Active 1616 67787 Problem Other chronic pain G89.29 Active 8 9677510 Problem Anxiety disorder, unspecified type F41.9 Active [id number] ALLERGIES No Information ENCOUNTERS Encounter Location Date Diagnosis [facility] [address] [facility] [id number] [address] [place] [address] Dec, [facility] [address] [facility] [id number] [address] [place] [address] Dec, Other chronic pain G89.29 an d Low back pain M54.5 [facility] [address] [facility] [id number] [address] [place] [address] October, [facility] [address] [facility] [id number] [address] [place] [address] October, [facility] [address] [facility] [id number] [address] [place] [address] October, [facility] [address] [facility] [id number] [address] [place] [address] October, Other chronic pain G89.29 an d Chronic hepatitis C without hepatic coma B18.2 [facility] [address] [id number] [address] [place] [address] Aug, Bipolar disorder, in partial remission, most recent episode hypomanic F31.71 ; Attention deficit hyperactivity disorder (ADHD), combined type F90.2 and Anxiety disorder, unspecified type F41.9 [facility] [address] [id number] [address] [place] [address] Aug, [facility] [address] [id number] [address] [place] [address] Aug, Bipolar disorder, in partial remission, most recent episode hypomanic F31.71 [facility] [address] [id number] [address] [place] [address] Aug, [facility] [address] [facility] [id number] [address] [place] [address] Aug, Bipolar disorder, in partial remission, most recent episode hypomanic F31.71 [facility] [address] [id number] [address] [place] [address] Aug, Bipolar disorder, in partial remission, most recent episode hypomanic F31.71 ; Attention deficit hyperactivity disorder (ADHD), combined type F90.2 and Anxiety disorder, unspecified type F41.9 [facility] [address] [id number] [address] [place] [address] Aug, Low back pain M54.5 and Pain in left wrist M25.532 [facility] [address] [id number] [address] [place] [address] Aug, [facility] [address] [facility] [id number] [address] [place] [address] Jun, [facility] [address] [id number] [address] [place] [address] Apr, Bipolar disorder, in partial remission, most recent episode hypomanic F31.71 [facility] [address] [id number] [address] [place] [address] Apr, [facility] [address] [id number] [address] [place] [address] Apr, Bipolar disorder, in partial remission, most recent episode hypomanic F31.71 ; Attention deficit hyperactivity disorder (ADHD), combined type F90.2 ; Anxiety disorder, unspecified type F41.9 and 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 [facility] [address] [id number] [address] [place] [address] Apr, Bipolar disorder, in partial remission, most recent episode hypomanic F31.71 [facility] [address] [facility] [id number] [address] [place] [address] Apr, Bipolar disorder, in partial remission, most recent episode hypomanic F31.71 [facility] [address] [facility] [id number] [address] [place] [phone] Mar, [facility] [address] [facility] [id number] [address] [place] [address] Mar, Bipolar disorder, in partial remission, most recent episode hypomanic F31.71 ; Encounter for immunization Z23 and Low back pain M54.5 [facility] [address] [id number] [address] [place] [address] 17 Mar, 2018 Bipolar disorder, in partial remission, most recent episode hypomanic F31.71 [facility] [address] [id number] [address] [place] [address] Mar, Bipolar disorder, in partial remission, most recent episode hypomanic F31.71 [facility] [address] [facility] [id number] [address] [place] [address] Jan, Bipolar disorder, in partial remission, most recent episode hypomanic F31.71 [facility] [address] [facility] [id number] [address] [place] [address] Jan, Bipolar disorder, in partial remission, most recent episode hypomanic F31.71 [facility] [address] [id number] [address] [place] [address] Dec, Bipolar disorder, in partial remission, most recent episode hypomanic F31.71 [facility] [address] [id number] [address] [place] [address] Dec, Bipolar disorder, in partial remission, most recent episode hypomanic F31.71 ; Attention deficit hyperactivity disorder (ADHD), combined type F90.2 ; Anxiety disorder, unspecified type F41.9 and 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 [facility] [address] [id number] [address] [place] [address] Dec, Bipolar disorder, in partial remission, most recent episode hypomanic F31.71 [facility] [address] [id number] [address] [place] [phone] Dec, Bipolar disorder, in partial remission, most recent episode hypomanic F31.71 [facility] [address] [id number] [address] [place] [phone] October, Bipolar disorder, in partial remission, most recent episode hypomanic F31.71 [facility] [address] [id number] [address] [place] [address] October, [facility] [address] [id number] [address] [place] [address] October, [facility] [address] [id number] [address] [place] [address] Oct, Bipolar disorder, in partial remission, most recent episode hypomanic F31.71 ; Attention deficit hyperactivity disorder (ADHD), combined type F90.2 ; Anxiety disorder, unspecified type F41.9 and Encounter for drug screening Z02.83 [facility] [address] [id number] [address] [place] [address] Oct, Bipolar disorder, in partial remission, most recent episode hypomanic F31.71 [facility] [address] [id number] [address] [place] [address] Oct, Bipolar disorder, in partial remission, most recent episode hypomanic F31.71 [facility] [address] [facility] [id number] [address] [place] [address] Aug, Bipolar disorder, in partial remission, most recent episode hypomanic F31.71 [facility] [address] [facility] [id number] [address] [place] [address] Aug, Bipolar disorder, in partial remission, most recent episode hypomanic F31.71 [facility] [address] [id number] [address] [place] [address] Aug, Bipolar disorder, in partial remission, most recent episode hypomanic F31.71 [facility] [address] [facility] [id number] [address] [place] [address] Jul, Bipolar disorder, in partial remission, most recent episode hypomanic F31.71 ; Attention deficit hyperactivity disorder (ADHD), combined type F90.2 and Anxiety disorder, unspecified type F41.9 [facility] [address] [facility] [id number] [address] [place] [address] Jul, Bipolar disorder, in partial remission, most recent episode hypomanic F31.71 [facility] [address] [facility] [id number] [address] [place] [address] Jun, Bipolar disorder, in partial remission, most recent episode hypomanic F31.71 [facility] [address] [facility] [id number] [address] [place] [address] May, Bipolar disorder, in partial remission, most recent episode hypomanic F31.71 [facility] [address] [facility] [id number] [address] [place] [phone] May, Bipolar disorder, in partial remission, most recent episode hypomanic F31.71 [facility] [address] [facility] [id number] [address] [place] [address] Apr, [facility] [address] [facility] [id number] [address] [place] [address] Apr, Bipolar disorder, in partial remission, most recent episode hypomanic F31.71 ; Attention deficit hyperactivity disorder (ADHD), combined type F90.2 ; Anxiety disorder, unspecified type F41.9 and Cannabis abuse F12.10 [facility] [address] [id number] [address] [place] [phone] Apr, Attention deficit hyperactiv ity disorder (ADHD), combined type F90.2 [facility] [address] [id number] [address] [place] [phone] Mar, Attention deficit hyperactiv ity disorder (ADHD), combined type F90.2 [facility] [address] [id number] [address] [place] [phone] Mar, Anxiety disorder, unspecifie d type F41.9 [facility] [address] [id number] [address] [place] [address] Jan, Attention deficit hyperactiv ity disorder (ADHD), combined type F90.2 [facility] [address] [facility] [id number] [address] [place] [address] Jan, Anxiety disorder, unspecifie d type F41.9 [facility] [address] [facility] [id number] [address] [place] [address] Jan, Other chronic pain G89.29 ; Chronic hepatitis C without hepatic coma B18.2 and Bipolar 1 disorder F31.9 [facility] [address] [facility] [id number] [address] [place] [address] Dec, Attention deficit hyperactiv ity disorder (ADHD), combined type F90.2 [facility] [address] [id number] [address] [place] [address] Dec, Bipolar disorder, in partial remission, most recent episode hypomanic F31.71 ; Attention deficit hyperactivity disorder (ADHD), combined type F90.2 and Anxiety disorder, unspecified type F41.9 [facility] [address] [id number] [address] [place] [address] Dec, Bipolar disorder, in partial remission, most recent episode hypomanic F31.71 ; Attention deficit hyperactivity disorder (ADHD), combined type F90.2 and Anxiety disorder, unspecified type F41.9 [facility] [address] [id number] [address] [place] [address] Dec, Bipolar 1 disorder F31.9 and Attention deficit R41.840 [facility] [address] [id number] [address] [place] [address] Oct, Other chronic pain G89.29 ; Alopecia L65.9 and Screening, lipid Z13.220 [facility] [address] [id number] [address] [place] [address] Oct, [facility] [address] [facility] [id number] [address] [place] [address] Aug, [facility] [address] [facility] [id number] [address] [place] [address] Aug, Eustachian tube dysfunction, right H69.81 ; Vertigo R42 and Other chronic pain G89.29 [facility] [address] [id number] [address] [place] [address] Aug, [facility] [address] [facility] [id number] [address] [place] [address] Jun, [facility] [address] [id number] [address] [place] [address] Jun, Low back pain M54.5 and Othe r chronic pain G89.29 [facility] [address] [id number] [address] [place] [address] Jun, [facility] [address] [id number] [address] [place] [address] May, [facility] [address] [id number] [address] [place] [address] Jan, [facility] [address] [facility] [id number] [address] [place] [address] Dec, [facility] [address] [facility] [id number] [address] [place] [address] Dec, [facility] [address] [facility] [id number] [address] [place] [address] Jun, [facility] [address] [facility] [id number] [address] [place] [address] Apr, Eustachian tube dysfunction, unspecified laterality H69.80 ; Hot flashes N95.1 and Encounter for immunization Z23 [facility] [address] [id number] [address] [place] [address] Jan, [facility] [address] [facility] [id number] [address] [place] [address] Jan, [facility] [address] [facility] [id number] [address] [place] [address] Jan, [facility] [address] [facility] [id number] [address] [place] [address] Jan, [facility] [address] [facility] [id number] [address] [place] [address] Jan, Encounter to establish care V65.8 ; Bipolar 1 disorder 296.7 ; Abdominal pain 789.00 ; Constipation 564.00 ; Hard of hearing 389.9 and Drug abuse 305.90 [facility] [address] [facility] [id number] [address] [place] [address] Dec, [facility] [address] [facility] [id number] [address] [place] [address] October, [facility] [address] [facility] [id number] [address] [place] [address] October, [facility] [address] [facility] [id number] [address] [place] [address] Oct, [facility] [address] [facility] [id number] [address] [place] [address] Oct, [facility] [address] [id number] [address] [place] [address], [place] [address] Oct, [facility] [address] [id number] [address] [place] [address], [place] [address] Aug, [facility] [address] [id number] [address] [place] [address], [place] [address] Aug, [facility] [address] [id number] [address] [place] [address], [place] [address] Aug, [facility] [address] [id number] [address] [place] [address], [place] [address] Aug, 2014 [facility] [address] [id number] [address] [place] [address], [place] [address] Aug, 2014 [facility] [address] [id number] [address] [place] [address], [place] [address] Aug, 2014 [facility] [address] [id number] [address] [place] [address], [place] [address] Aug, 2014 [facility] [address] [id number] [address] [place] [address], [place] [address] Aug, 2014 [facility] [address] [id number] [address] [place] [address], [place] [address] Aug, 2014 [facility] [address] [id number] [address] [place] [address], [place] [address] Aug, 2014 [facility] [address] [id number] [address] [place] [address], [place] [address] Aug, 2014 [facility] [address] [id number] [address] [place] [address], [place] [address] Aug, 2014 [facility] [address] [id number] [address] [place] [address], [place] [address] Aug, 2014 [facility] [address] [id number] [address] [place] [address] Aug, 2014 [facility] [address] [id number] [address] [place] [address] Aug, [facility] [address] [id number] [address] [place] [address], [place] [address] Jul, [facility] [address] [id number] [address] [place] [address], [place] [address] Jul, [facility] [address] [id number] [address] [place] [address], [place] [address] Jul, [facility] [address] [id number] [address] [place] [address], [place] [address] Jul, [facility] [address] [id number] [address] [place] [address], [place] [address] Jul, [facility] [address] [id number] [address] [place] [address], [place] [address] Jul, [facility] [address] [id number] [address] [place] [address], [place] [address] Jul, [facility] [address] [id number] [address] [place] [address], [place] [address] Jul, [facility] [address] [id number] [address] [place] [address], [place] [address] Jun, [facility] [address] [id number] [address] [place] [address], [place] [address] Jun, [facility] [address] [id number] [address] [place] [address], [place] [address] Jun, [facility] [address] [id number] [address] [place] [address], [place] [address] 29 Jun, 2014 [facility] [address] [id number] [address] [place] [address], [place] [address] 18 Jun, 2014 [facility] [address] [id number] [address] [place] [address], [place] [address] 15 Jun, 2014 [facility] [address] [id number] [address] [place] [address], [place] [address] 15 Jun, 2014 [facility] [address] [id number] [address] [place] [address], [place] [address] Jun, [facility] [address] [id number] [address] [place] [address], [place] [address] Jun, [facility] [address] [id number] [address] [place] [address], [place] [address] Jun, [facility] [address] [id number] [address] [place] [address], [place] [address] Jun, [facility] [address] [id number] [address] [place] [address], [place] [address] May, [facility] [address] [id number] [address] [place] [address], [place] [address] May, [facility] [address] [id number] [address] [place] [address], [place] [address] May, [facility] [address] [id number] [address] [place] [address], [place] [address] May, [facility] [address] [id number] [address] [place] [address], [place] [address] May, [facility] [address] [id number] [address] [place] [address], [place] [address] May, [facility] [address] [id number] [address] [place] [address], [place] [address] May, [facility] [address] [id number] [address] [place] [address], [place] [address] Apr, [facility] [address] [id number] [address] [place] [address], [place] [address] Apr, [facility] [address] [id number] [address] [place] [address], [place] [address] Apr, [facility] [address] [id number] [address] [place] [address], [place] [address] Apr, [facility] [address] [id number] [address] [place] [address], [place] [address] Apr, [facility] [address] [id number] [address] [place] [address], [place] [address] Apr, [facility] [address] [id number] [address] [place] [address], [place] [address] Mar, [facility] [address] [id number] [address] [place] [address], [place] [address] Mar, [facility] [address] [id number] [address] [place] [address], [place] [address] Mar, [facility] [address] [id number] [address] [place] [address], [place] [address] Mar, [facility] [address] [id number] [address] [place] [address], [place] [address] Mar, [facility] [address] [id number] [address] [place] [address], [place] [address] Mar, [facility] [address] [id number] [address] [place] [address], [place] [address] Jan, [facility] [address] [id number] [address] [place] [address], [place] [address] Jan, [facility] [address] [id number] [address] [place] [address], [place] [address] Jan, [facility] [address] [id number] [address] [place] [address], [place] [address] Jan, [facility] [address] [id number] [address] [place] [address], [place] [address] Dec, [facility] [address] [id number] [address] [place] [address], [place] [address] Dec, [facility] [address] [id number] [address] [place] [address], [place] [address] Dec, [facility] [address] [id number] [address] [place] [address], [place] [address] Dec, [facility] [address] [id number] [address] [place] [address], [place] [address] Dec, [facility] [address] [id number] [address] [place] [address], [place] [address] Dec, [facility] [address] [id number] [address] [place] [address], [place] [address] Dec, [facility] [address] [id number] [address] [place] [address], [place] [address] Dec, [facility] [address] [id number] [address] [place] [address], [place] [address] Dec, [facility] [address] [id number] [address] [place] [address], [place] [address] Dec, [facility] [address] [id number] [address] [place] [address], [place] [address] Dec, [facility] [address] [id number] [address] [place] [address], [place] [address] Dec, [facility] [address] [id number] [address] [place] [address], [place] [address] October, [facility] [address] [id number] [address] [place] [address], [place] [address] October, [facility] [address] [id number] [address] [place] [address], [place] [address] October, [facility] [address] [id number] [address] [place] [address], [place] [address] October, [facility] [address] [id number] [address] [place] [address], [place] [address] October, [facility] [address] [id number] [address] [place] [address], [place] [address] October, [facility] [address] [id number] [address] [place] [address], [place] [address] Oct, [facility] [address] [id number] [address] [place] [address], [place] [address] Oct, [facility] [address] [id number] [facility] [place] [address] Oct, [facility] [address] [id number] [facility] [place] [address] Oct, [facility] [address] [id number] [facility] [place] [address] Oct, [facility] [address] [id number] [facility] [place] [address] Oct, [facility] [address] [id number] [facility] [place] [address] Oct, [facility] [address] [id number] [address] [place] [address], [place] [address] Oct, [facility] [address] [id number] [address] [place] [address], [place] [address] Oct, [facility] [address] [id number] [address] [place] [address], [place] [address] Oct, [facility] [address] [id number] [address] [place] [address], [place] [address] Oct, [facility] [address] [id number] [address] [place] [address], [place] [address] Oct, [facility] [address] [id number] [address] [place] [address], [place] [address] 15 Aug, 2013 [facility] [address] [id number] [address] [place] [address], [place] [address] 15 Aug, 2013 [facility] [address] [id number] [address] [place] [address], [place] [address] Aug, [facility] [address] [id number] [address] [place] [address], [place] [address] Aug, [facility] [address] [id number] [address] [place] [address], [place] [address] 05 Aug, 2013 [facility] [address] [id number] [address] [place] [address], [place] [address] 05 Aug, 2013 [facility] [address] [id number] [address] [place] [address], [place] [address] Aug, [facility] [address] [id number] [address] [place] [address], [place] [address] Aug, [facility] [address] [id number] [address] [place] [address], [place] [address] Aug, [facility] [address] [id number] [address] [place] [address], [place] [address] 24 Aug, 2013 [facility] [address] [id number] [address] [place] [address], [place] [address] 24 Aug, 2013 [facility] [address] [id number] [address] [place] [address], [place] [address] Aug, [facility] [address] [id number] [address] [place] [address], [place] [address] Aug, [facility] [address] [id number] [address] [place] [address], [place] [address] 20 Aug, 2013 [facility] [address] [id number] [address] [place] [address], [place] [address] 14 Aug, 2013 [facility] [address] [id number] [address] [place] [address], [place] [address] 14 Aug, 2013 [facility] [address] [id number] [address] [place] [address], [place] [address] 14 Aug, 2013 [facility] [address] [id number] [address] [place] [address], [place] [address] 14 Aug, 2013 [facility] [address] [id number] [address] [place] [address], [place] [address] 07 Aug, 2013 [facility] [address] [id number] [address] [place] [address], [place] [address] 07 Aug, 2013 [facility] [address] [id number] [address] [place] [address], [place] [address] 06 Aug, 2013 [facility] [address] [id number] [address] [place] [address], [place] [address] Aug, [facility] [address] [id number] [address] [place] [address], [place] [address] Aug, [facility] [address] [id number] [address] [place] [address], [place] [address] Aug, [facility] [address] [id number] [address] [place] [address], [place] [address] Aug, [facility] [address] [id number] [address] [place] [address], [place] [address] Jul, [facility] [address] [id number] [address] [place] [address], [place] [address] Jul, [facility] [address] [id number] [address] [place] [address], [place] [address] Jul, [facility] [address] [id number] [address] [place] [address], [place] [address] Jul, [facility] [address] [id number] [address] [place] [address], [place] [address] Jul, [facility] [address] [id number] [address] [place] [address], [place] [address] Jul, [facility] [address] [id number] [address] [place] [address], [place] [address] Jul, [facility] [address] [id number] [address] [place] [address], [place] [address] Jul, [facility] [address] [id number] [address] [place] [address], [place] [address] Jul, [facility] [address] [id number] [address] [place] [address], [place] [address] Jul, [facility] [address] [id number] [address] [place] [address], [place] [address] Jul, [facility] [address] [id number] [address] [place] [address], [place] [address] 15 Jul, 2013 [facility] [address] [id number] [address] [place] [address], [place] [address] Jul, [facility] [address] [id number] [address] [place] [address], [place] [address] Jul, [facility] [address] [id number] [address] [place] [address], [place] [address] Jul, [facility] [address] [id number] [address] [place] [address], [place] [address] Jul, [facility] [address] [id number] [address] [place] [address], [place] [address] Jul, [facility] [address] [id number] [address] [place] [address], [place] [address] Jul, [facility] [address] [id number] [address] [place] [address], [place] [address] Jul, [facility] [address] [id number] [address] [place] [address], [place] [address] Jul, [facility] [address] [id number] [address] [place] [address], [place] [address] Jun, [facility] [address] [id number] [address] [place] [address], [place] [address] Jun, [facility] [address] [id number] [address] [place] [address], [place] [address] 30 Jun, 2013 [facility] [address] [id number] [address] [place] [address], [place] [address] 30 Jun, 2013 [facility] [address] [id number] [address] [place] [address], [place] [address] Jun, [facility] [address] [id number] [address] [place] [address], [place] [address] Jun, [facility] [address] [id number] [address] [place] [address], [place] [address] Jun, [facility] [address] [id number] [address] [place] [address], [place] [address] Jun, [facility] [address] [id number] [address] [place] [address], [place] [address] Jun, [facility] [address] [id number] [address] [place] [address], [place] [address] Jun, [facility] [address] [id number] [address] [place] [address], [place] [address] Jun, [facility] [address] [id number] [address] [place] [address], [place] [address] Jun, [facility] [address] [id number] [address] [place] [address], [place] [address] Jun, [facility] [address] [id number] [address] [place] [address], [place] [address] Jun, [facility] [address] [id number] [address] [place] [address], [place] [address] Jun, [facility] [address] [id number] [address] [place] [address], [place] [address] 18 Jun, 2013 [facility] [address] [id number] [address] [place] [address], [place] [address] 18 Jun, 2013 [facility] [address] [id number] [address] [place] [address], [place] [address] 17 Jun, 2013 [facility] [address] [id number] [address] [place] [address], [place] [address] 17 Jun, 2013 [facility] [address] [id number] [address] [place] [address], [place] [address] 13 Jun, 2013 [facility] [address] [id number] [address] [place] [address], [place] [address] 12 Jun, 2013 [facility] [address] [id number] [address] [place] [address], [place] [address] 12 Jun, 2013 [facility] [address] [id number] [address] [place] [address] [address] Jun, [facility] [address] [id number] [address] [place] [address], [place] [address] Jun, [facility] [address] [id number] [address] [place] [address], [place] [address] Jun, [facility] [address] [id number] [address] [place] [address], [place] [address] Jun, [facility] [address] [id number] [address] [place] [address], [place] [address] Jun, [facility] [address] [id number] [address] [place] [address], [place] [address] May, [facility] [address] [id number] [address] [place] [address], [place] [address] May, [facility] [address] [id number] [address] [place] [address], [place] [address] May, [facility] [address] [id number] [address] [place] [address] May, [facility] [address] [id number] [address] [place] [address] May, [facility] [address] [id number] [address] [place] [address] May, [facility] [address] [id number] [address] [place] [address] Apr, [facility] [address] [id number] [address] [place] [address] Apr, [facility] [address] [id number] [address] [place] [address] Apr, [facility] [address] [id number] [address] [place] [address] Apr, [facility] [address] [id number] [address] [place] [address] Apr, [facility] [address] [id number] [address] [place] [address], [place] [address] 15 Apr, 2013 [facility] [address] [id number] [address] [place] [address], [place] [address] 15 Apr, 2013 [facility] [address] [id number] [address] [place] [address], [place] [address] 01 Apr, 2013 [facility] [address] [id number] [address] [place] [address], [place] [address] 26 Mar, 2012 [facility] [address] [id number] [address] [place] [address], [place] [address] 24 Mar, 2012 [facility] [address] [id number] [address] [place] [address], [place] [address] 17 Mar, 2012 [facility] [address] [id number] [address] [place] [address], [place] [address] 17 Mar, 2012 [facility] [address] [id number] [address] [place] [address], [place] [address] 11 Mar, 2012 [facility] [address] [id number] [address] [place] [address], [place] [address] 10 Mar, 2013 [facility] [address] [id number] [address] [place] [address], [place] [address] 05 Mar, 2012 [facility] [address] [id number] [address] [place] [address], [place] [address] 04 Mar, 2013 [facility] [address] [id number] [address] [place] [address], [place] [address] 20 Jan, 2013 [facility] [address] [id number] [address] [place] [address], [place] [address] 19 Jan, 2013 [facility] [address] [id number] [address] [place] [address], [place] [address] 14 Jan, 2013 [facility] [address] [id number] [address] [place] [address], [place] [address] 12 Jan, 2013 [facility] [address] [id number] [address] [place] [address], [place] [address] Jan, [facility] [address] [id number] [address] [place] [address], [place] [address] Jan, [facility] [address] [id number] [address] [place] [address], [place] [address] Dec, [facility] [address] [id number] [address] [place] [address], [place] [address] Dec, [facility] [address] [id number] [address] [place] [address], [place] [address] Dec, [facility] [address] [id number] [address] [place] [address], [place] [address] Dec, [facility] [address] [id number] [address] [place] [address], [place] [address] Dec, [facility] [address] [id number] [address] [place] [address], [place] [address] Dec, [facility] [address] [id number] [address] [place] [address], [place] [address] Dec, [facility] [address] [id number] [address] [place] [address], [place] [address] Dec, [facility] [address] [id number] [address] [place] [address], [place] [address] 15 Dec, 2012 [facility] [address] [id number] [address] [place] [address], [place] [address] Dec, [facility] [address] [id number] [address] [place] [address], [place] [address] Dec, [facility] [address] [id number] [address] [place] [address], [place] [address] Dec, [facility] [address] [id number] [address] [place] [address], [place] [address] Dec, [facility] [address] [id number] [address] [place] [address], [place] [address] 17 Dec, 2012 [facility] [address] [id number] [address] [place] [address], [place] [address] Dec, [facility] [address] [id number] [address] [place] [address], [place] [address] Dec, [facility] [address] [id number] [address] [place] [address], [place] [address] October, [facility] [address] [id number] [address] [place] [address], [place] [address] October, [facility] [address] [id number] [address] [place] [address], [place] [address] October, [facility] [address] [id number] [address] [place] [address], [place] [address] October, [facility] [address] [id number] [address] [place] [address], [place] [address] October, [facility] [address] [id number] [address] [place] [address], [place] [address] October, [facility] [address] [id number] [address] [place] [address], [place] [address] October, [facility] [address] [id number] [address] [place] [address], [place] [address] Oct, [facility] [address] [id number] [address] [place] [address], [place] [address] Oct, [facility] [address] [id number] [address] [place] [address], [place] [address] Oct, [facility] [address] [id number] [address] [place] [address], [place] [address] Oct, [facility] [address] [id number] [address] [place] [address], [place] [address] Oct, [facility] [address] [id number] [address] [place] [address], [place] [address] 18 Oct, 2012 [facility] [address] [id number] [address] [place] [address], [place] [address] Oct, [facility] [address] [id number] [address] [place] [address], [place] [address] 15 Oct, 2012 [facility] [address] [id number] [address] [place] [address], [place] [address] Oct, [facility] [address] [id number] [address] [place] [address], [place] [address] Oct, [facility] [address] [id number] [address] [place] [address], [place] [address] Oct, [facility] [address] [id number] [address] [place] [address], [place] [address] Oct, [facility] [address] [id number] [address] [place] [address], [place] [address] Aug, [facility] [address] [id number] [address] [place] [address], [place] [address] Aug, [facility] [address] [id number] [address] [place] [address], [place] [address] Aug, [facility] [address] [id number] [address] [place] [address], [place] [address] Aug, [facility] [address] [id number] [address] [place] [address], [place] [address] Aug, [facility] [address] [id number] [address] [place] [address], [place] [address] 05 Aug, 2012 [facility] [address] [id number] [address] [place] [address], [place] [address] 20 Aug, 2012 [facility] [address] [id number] [address] [place] [address], [place] [address] 14 Aug, 2012 [facility] [address] [id number] [address] [place] [address], [place] [address] 12 Aug, 2012 [facility] [address] [id number] [address] [place] [address], [place] [address] Aug, [facility] [address] [id number] [address] [place] [address] [address] 29 Jul, 2012 [facility] [address] [id number] [address] [place] [address], [place] [address] 15 Jul, 2012 [facility] [address] [id number] [address] [place] [address], [place] [address] 08 Jul, 2012 [facility] [address] [id number] [address] [place] [address], [place] [address] 20 Jun, 2012 [facility] [address] [id number] [address] [place] [address], [place] [address] 18 Jun, 2012 [facility] [address] [id number] [address] [place] [address], [place] [address] 18 Jun, 2012 [facility] [address] [id number] [address] [place] [address], [place] [address] 18 Jun, 2012 [facility] [address] [id number] [address] [place] [address], [place] [address] 18 Jun, 2012 [facility] [address] [id number] [address] [place] [address], [place] [address] 14 Jun, 2012 [facility] [address] [id number] [address] [place] [address], [place] [address] 14 Jun, 2012 [facility] [address] [id number] [address] [place] [address], [place] [address] 13 Jun, 2012 [facility] [address] [id number] [address] [place] [address], [place] [address] 13 Jun, 2012 [facility] [address] [id number] [address] [place] [address], [place] [address] 11 Jun, 2012 [facility] [address] [id number] [address] [place] [address], [place] [address] 11 Jun, 2012 [facility] [address] [id number] [address] [place] [address], [place] [address] 11 Jun, 2012 [facility] [address] [id number] [address] [place] [address], [place] [address] 11 Jun, 2012 [facility] [address] [id number] [address] [place] [address], [place] [address] 07 Jun, 2012 [facility] [address] [id number] [address] [place] [address], [place] [address] Jun, [facility] [address] [id number] [address] [place] [address], [place] [address] Jun, [facility] [address] [id number] [address] [place] [address], [place] [address] 06 Jun, 2012 [facility] [address] [id number] [address] [place] [address], [place] [address] Jun, [facility] [address] [id number] [address] [place] [address], [place] [address] Jun, [facility] [address] [id number] [address] [place] [address], [place] [address] Jun, [facility] [address] [id number] [address] [place] [address], [place] [address] Jun, [facility] [address] [id number] [address] [place] [address], [place] [address] Jun, [facility] [address] [id number] [address] [place] [address], [place] [address] Jun, [facility] [address] [id number] [address] [place] [address], [place] [address] May, [facility] [address] [id number] [address] [place] [address], [place] [address] May, [facility] [address] [id number] [address] [place] [address], [place] [address] May, [facility] [address] [id number] [address] [place] [address], [place] [address] May, [facility] [address] [id number] [address] [place] [address], [place] [address] May, [facility] [address] [id number] [address] [place] [address], [place] [address] May, [facility] [address] [id number] [address] [place] [address], [place] [address] May, [facility] [facility] [address] [id number] [address] [place] [address], [place] [address] May, [facility] [address] [id number] [address] [place] [address], [place] [address] Apr, [facility] [address] [id number] [address] [place] [address], [place] [address] Apr, [facility] [address] [id number] [address] [place] [address], [place] [address] Apr, [facility] [address] [id number] [address] [place] [address], [place] [address] Apr, [facility] [address] [id number] [address] [place] [address], [place] [address] Apr, [facility] [address] [id number] [address] [place] [address], [place] [address] Apr, [facility] [address] [id number] [address] [place] [address], [place] [address] Apr, [facility] [address] [id number] [address] [place] [address], [place] [address] Apr, [facility] [address] [id number] [address] [place] [address], [place] [address] Apr, [facility] [address] [id number] [address] [place] [id number] Apr, [facility] [address] [id number] [address] [place] [address], [place] [address] Apr, [facility] [address] [id number] [address] [place] [address], [place] [address] Apr, [facility] [address] [id number] [address] [place] [address], [place] [address] Mar, [facility] [address] [id number] [address] [place] [phone] 18 Mar, 2012 [facility] [address] [id number] [address] [place] [address], [place] [address] 12 Mar, 2012 [facility] [address] [id number] [address] [place] [address], [place] [address] Mar, [facility] [address] [id number] [address] [place] [id number] Mar, [facility] [address] [id number] [address] [place] [id number] Mar, [facility] [address] [id number] [address] [place] [address], [place] [address] Mar, [facility] [address] [id number] [address] [place] [phone] Jan, [facility] [address] [id number] [address] [place] [phone] Jan, [facility] [address] [id number] [address] [place] [id number] Jan, [facility] [address] [id number] [address] [place] [id number] Jan, [facility] [address] [id number] [address] [place] [id number] Jan, [facility] [address] [id number] [address] [place] [phone] Jan, [facility] [address] [id number] [address] [place] [phone] Jan, [facility] [address] [id number] [address] [place] [address], [place] [address] 14 Feb, 2012 [facility] [address] [id number] [address] [place] [address], [place] [address] Jan, [facility] [address] [id number] [address] [place] [address], [place] [address] Jan, [facility] [address] [id number] [address] [place] [address], [place] [address] Jan, [facility] [address] [id number] [address] [place] [address], [place] [address] Dec, [facility] [address] [id number] [address] [place] [address], [place] [address] Dec, [facility] [address] [id number] [address] [place] [address], [place] [address] Dec, [facility] [address] [id number] [address] [place] [address], [place] [address] Dec, [facility] [address] [id number] [address] [place] [address], [place] [address] Dec, [facility] [address] [id number] [address] [place] [address], [place] [address] Dec, [facility] [address] [id number] [address] [place] [address], [place] [address] Dec, [facility] [address] [id number] [address] [place] [address], [place] [address] 17 Jan, 2012 [facility] [address] [id number] [address] [place] [address], [place] [address] 16 Jan, 2012 [facility] [address] [id number] [address] [place] [address], [place] [address] Dec, [facility] [address] [id number] [address] [place] [address], [place] [address] Dec, [facility] [address] [id number] [address] [place] [address], [place] [address] Dec, [facility] [address] [id number] [address] [place] [address], [place] [address] Dec, [facility] [address] [id number] [address] [place] [address], [place] [address] Dec, [facility] [address] [id number] [address] [place] [address], [place] [address] Dec, [facility] [address] [id number] [address] [place] [address], [place] [address] Dec, [facility] [address] [id number] [address] [place] [address], [place] [address] Dec, [facility] [address] [id number] [address] [place] [address], [place] [address] Dec, [facility] [address] [id number] [address] [place] [address], [place] [address] Dec, [facility] [address] [id number] [address] [place] [address], [place] [address] October, [facility] [address] [id number] [address] [place] [address], [place] [address] October, [facility] [address] [id number] [address] [place] [address], [place] [address] October, [facility] [address] [id number] [address] [place] [address], [place] [address] October, [facility] [address] [id number] [address] [place] [address], [place] [address] October, [facility] [address] [id number] [address] [place] [address], [place] [address] October, [facility] [address] [id number] [address] [place] [address], [place] [address] Oct, [facility] [address] [id number] [address] [place] [address], [place] [address] Oct, [facility] [address] [id number] [address] [place] [address], [place] [address] Oct, [facility] [address] [id number] [address] [place] [address], [place] [address] Oct, [facility] [address] [id number] [address] [place] [address], [place] [address] Oct, [facility] [address] [id number] [address] [place] [address], [place] [address] Oct, [facility] [address] [id number] [address] [place] [address], [place] [address] Oct, [facility] [address] [id number] [address] [place] [address], [place] [address] 29 Sep, 2011 [facility] [address] [id number] [address] [place] [address], [place] [address] 29 Sep, 2011 [facility] [address] [id number] [address] [place] [address], [place] [address] Aug, [facility] [address] [id number] [address] [place] [address], [place] [address] Aug, [facility] [address] [id number] [address] [place] [address], [place] [address] Aug, [facility] [address] [id number] [address] [place] [address], [place] [address] Aug, [facility] [address] [id number] [address] [place] [address], [place] [address] Aug, [facility] [address] [id number] [address] [place] [address], [place] [address] Aug, [facility] [address] [id number] [address] [place] [address], [place] [address] Aug, [facility] [address] [id number] [address] [place] [address], [place] [address] Jul, [facility] [address] [id number] [address] [place] [address], [place] [address] Jul, [facility] [address] [id number] [address] [place] [address], [place] [address] Jul, [facility] [address] [id number] [address] [place] [address], [place] [address] Jul, [facility] [address] [id number] [address] [place] [address], [place] [address] Jun, [facility] [address] [id number] [address] [place] [address], [place] [address] Jun, [facility] [address] [id number] [address] [place] [address], [place] [address] May, [facility] [address] [id number] [address] [place] [address], [place] [address] May, [facility] [address] [id number] [address] [place] [address], [place] [address] May, [facility] [address] [id number] [address] [place] [address], [place] [address] May, [facility] [address] [id number] [address] [place] [address], [place] [address] May, [facility] [address] [id number] [address] [place] [address], [place] [address] Apr, [facility] [address] [id number] [address] [place] [address], [place] [address] Apr, [facility] [address] [id number] [address] [place] [address], [place] [address] Apr, [facility] [address] [id number] [address] [place] [address], [place] [address] 15 Jan, 2011 [facility] [address] [id number] [address] [place] [address], [place] [address] 13 Dec, 2010 [facility] [address] [id number] [address] [place] [address], [place] [address] October, [facility] [address] [id number] [address] [place] [address], [place] [address] Jun, [facility] [address] [id number] [address] [place] [address], [place] [address] 23 Apr, 2009 [facility] [address] [id number] [address] [place] [address], [place] [address] 13 Apr, 2009 [facility] [address] [id number] [address] [place] [address], [place] [address] Apr, [facility] [address] [facility] [id number] [address] [place] [address] Jun, IMMUNIZATIONS No Known Immunizations SOCIAL HISTORY [...]
--- OUTSIDE RECORDS SUMMARY | 2020-01-25 12:41 | XMS REPORT ---
Author Author Ana MCDONALD Organization [facility] [place] Address [address] [place] [address] Care Team Providers Care Log Buncher Name Role Phone CHAZ MCDONALD Unavailable PROBLEMS Type Condition ICD9-CM Code ILJ27-TO Code Onset Dates Condition S tatus SNOMED Code Problem Attention deficit R41.840 Active 76 123137 Problem Chronic hepatitis C without hepatic coma B18.2 Active 141031482 Problem Cannabis abuse F12.10 Active 91454 009 Problem Bipolar disorder, in partial remission, most rec ent episode hypomanic F31.71 Active 815353530 Problem Attention deficit hyperactivity disorder (ADHD), combi luciano type F90.2 Active 50266579 Problem Bipolar 1 disorder F31.9 Active 3 99732060 Problem H/O laminectomy Z98.89 Active 1616 75743 Problem Other chronic pain G89.29 Active 8 1926010 Problem Anxiety disorder, unspecified type F41.9 Active [id number] ALLERGIES No Information ENCOUNTERS Encounter Location Date Diagnosis [facility] [place] [address] [facility] [id number] [address] [place] [phone] Dec, [facility] [place] [address] [facility] [id number] [address] [place] [id number] Dec, Other chronic pain G89.29 an d Low back pain M54.5 [facility] [place] [address] [facility] [id number] [address] [place] [id number] October, [facility] [place] [address] [facility] [id number] [address] [place] [phone] October, [facility] [place] [address] [facility] [id number] [address] [place] [id number] October, [facility] [place] [address] [facility] [id number] [address] [place] [id number] October, Other chronic pain G89.29 an d Chronic hepatitis C without hepatic coma B18.2 [facility] [place] [address] [id number] [address] [place] [phone] Aug, Bipolar disorder, in partial remission, most recent episode hypomanic F31.71 ; Attention deficit hyperactivity disorder (ADHD), combined type F90.2 and Anxiety disorder, unspecified type F41.9 [facility] [place] [address] [id number] [address] [place] [phone] Aug, [facility] [place] [address] [id number] [address] [place] [id number] Aug, Bipolar disorder, in partial remission, most recent episode hypomanic F31.71 [facility] [place] [address] [id number] [address] [place] [phone] Aug, [facility] [place] [address] [id number] [address] [place] [phone] Aug, Bipolar disorder, in partial remission, most recent episode hypomanic F31.71 [facility] [place] [address] [id number] [address] [place] [id number] Aug, Bipolar disorder, in partial remission, most recent episode hypomanic F31.71 ; Attention deficit hyperactivity disorder (ADHD), combined type F90.2 and Anxiety disorder, unspecified type F41.9 [facility] [place] [address] [id number] [address] [place] [id number] Aug, Low back pain M54.5 and Pain in left wrist M25.532 [facility] [place] [address] [id number] [address] [place] [id number] Aug, [facility] [place] [address] [facility] [id number] [address] [place] [id number] Jun, [facility] [place] [address] [id number] [address] [place] [id number] Apr, Bipolar disorder, in partial remission, most recent episode hypomanic F31.71 [facility] [place] [address] [facility] [id number] [address] [place] [id number] Apr, [facility] [place] [address] [facility] [id number] [address] [place] [id number] Apr, Bipolar disorder, in partial remission, most recent episode hypomanic F31.71 ; Attention deficit hyperactivity disorder (ADHD), combined type F90.2 ; Anxiety disorder, unspecified type F41.9 and 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 [facility] [place] [address] [facility] [id number] [address] [place] [id number] Apr, Bipolar disorder, in partial remission, most recent episode hypomanic F31.71 [facility] [place] [address] [facility] [id number] [address] [place] [id number] Apr, Bipolar disorder, in partial remission, most recent episode hypomanic F31.71 [facility] [place] [address] [facility] [id number] [address] [place] [phone] Mar, [facility] [place] [address] [facility] [id number] [address] [place] [id number] Mar, Bipolar disorder, in partial remission, most recent episode hypomanic F31.71 ; Encounter for immunization Z23 and Low back pain M54.5 [facility] [place] [address] [facility] [id number] [address] [place] [id number] Mar, Bipolar disorder, in partial remission, most recent episode hypomanic F31.71 [facility] [place] [address] [facility] [id number] [address] [place] [id number] Mar, Bipolar disorder, in partial remission, most recent episode hypomanic F31.71 [facility] [place] [address] [facility] [id number] [address] [place] [address] Jan, Bipolar disorder, in partial remission, most recent episode hypomanic F31.71 [facility] [place] [address] [facility] [id number] [address] [place] [address] Jan, Bipolar disorder, in partial remission, most recent episode hypomanic F31.71 [place] [address] [id number] [address] [place] [id number] Dec, Bipolar disorder, in partial remission, most recent episode hypomanic F31.71 [facility] [place] [address] [id number] [address] [place] [id number] Dec, Bipolar disorder, in partial remission, most recent episode hypomanic F31.71 ; Attention deficit hyperactivity disorder (ADHD), combined type F90.2 ; Anxiety disorder, unspecified type F41.9 and Other alf (current) 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 Z79.899 [facility] [place] [address] [id number] [address] [place] [phone] Dec, Bipolar disorder, in partial remission, most recent episode hypomanic F31.71 [facility] [place] [address] [id number] [address] [place] [id number] Dec, Bipolar disorder, in partial remission, most recent episode hypomanic F31.71 [facility] [place] [address] [id number] [address] [place] [id number] October, Bipolar disorder, in partial remission, most recent episode hypomanic F31.71 [facility] [place] [address] [id number] [address] [place] [id number] October, [facility] [place] [address] [id number] [address] [place] [phone] October, [facility] [place] [address] [id number] [address] [place] [id number] Oct, Bipolar disorder, in partial remission, most recent episode hypomanic F31.71 ; Attention deficit hyperactivity disorder (ADHD), combined type F90.2 ; Anxiety disorder, unspecified type F41.9 and Encounter for drug screening Z02.83 [facility] [place] [address] [id number] [address] [place] [phone] Oct, Bipolar disorder, in partial remission, most recent episode hypomanic F31.71 [facility] [place] [address] [facility] [id number] [address] [place] [id number] Oct, Bipolar disorder, in partial remission, most recent episode hypomanic F31.71 [facility] [place] [address] [id number] [address] [place] [id number] Aug, Bipolar disorder, in partial remission, most recent episode hypomanic F31.71 [facility] [place] [address] [facility] [id number] [address] [place] [id number] Aug, Bipolar disorder, in partial remission, most recent episode hypomanic F31.71 [facility] [place] [address] [facility] [id number] [address] [place] [id number] Aug, Bipolar disorder, in partial remission, most recent episode hypomanic F31.71 [facility] [place] [address] [facility] [id number] [address] [place] [id number] Jul, Bipolar disorder, in partial remission, most recent episode hypomanic F31.71 ; Attention deficit hyperactivity disorder (ADHD), combined type F90.2 and Anxiety disorder, unspecified type F41.9 [facility] [place] [address] [facility] [id number] [address] [place] [id number] Jul, Bipolar disorder, in partial remission, most recent episode hypomanic F31.71 [facility] [place] [address] [facility] [id number] [address] [place] [id number] Jun, Bipolar disorder, in partial remission, most recent episode hypomanic F31.71 [facility] [place] [address] [facility] [id number] [address] [place] [id number] May, Bipolar disorder, in partial remission, most recent episode hypomanic F31.71 [facility] [place] [address] [facility] [id number] [address] [place] [id number] May, Bipolar disorder, in partial remission, most recent episode hypomanic F31.71 [facility] [place] [address] [facility] [id number] [address] [place] [id number] Apr, [facility] [place] [address] [facility] [id number] [address] [place] [id number] Apr, Bipolar disorder, in partial remission, most recent episode hypomanic F31.71 ; Attention deficit hyperactivity disorder (ADHD), combined type F90.2 ; Anxiety disorder, unspecified type F41.9 and Cannabis abuse F12.10 [facility] [place] [address] [id number] [address] [place] [id number] 13 Apr, 2017 Attention deficit hyperactiv ity disorder (ADHD), combined type F90.2 [facility] [place] [address] [id number] [address] [place] [id number] Mar, Attention deficit hyperactiv ity disorder (ADHD), combined type F90.2 [facility] [place] [address] [id number] [address] [place] [id number] 14 Mar, 2017 Anxiety disorder, unspecifie d type F41.9 [facility] [place] [address] [id number] [address] [place] [id number] Jan, Attention deficit hyperactiv ity disorder (ADHD), combined type F90.2 [facility] [place] [address] [facility] [id number] [address] [place] [phone] Jan, Anxiety disorder, unspecifie d type F41.9 [facility] [place] [address] [facility] [id number] [address] [place] [address] Jan, Other chronic pain G89.29 ; Chronic hepatitis C without hepatic coma B18.2 and Bipolar 1 disorder F31.9 [facility] [place] [address] [id number] [address] [place] [id number] Dec, Attention deficit hyperactiv ity disorder (ADHD), combined type F90.2 [facility] [place] [address] [id number] [address] [place] [id number] Dec, Bipolar disorder, in partial remission, most recent episode hypomanic F31.71 ; Attention deficit hyperactivity disorder (ADHD), combined type F90.2 and Anxiety disorder, unspecified type F41.9 [facility] [place] [address] [id number] [address] [place] [phone] Dec, Bipolar disorder, in partial remission, most recent episode hypomanic F31.71 ; Attention deficit hyperactivity disorder (ADHD), combined type F90.2 and Anxiety disorder, unspecified type F41.9 [facility] [place] [address] [id number] [address] [place] [id number] Dec, Bipolar 1 disorder F31.9 and Attention deficit R41.840 [facility] [place] [address] [id number] [address] [place] [id number] Oct, Other chronic pain G89.29 ; Alopecia L65.9 and Screening, lipid Z13.220 [facility] [place] [address] [id number] [address] [place] [id number] Oct, [facility] [place] [address] [id number] [address] [place] [id number] Aug, [facility] [place] [address] [facility] [id number] [address] [place] [id number] Aug, Eustachian tube dysfunction, right H69.81 ; Vertigo R42 and Other chronic pain G89.29 [facility] [place] [address] [id number] [address] [place] [phone] Aug, [facility] [place] [address] [id number] [address] [place] [id number] Jun, [facility] [place] [address] [id number] [address] [place] [id number] Jun, Low back pain M54.5 and Othe r chronic pain G89.29 [facility] [place] [address] [id number] [address] [place] [id number] Jun, [facility] [place] [address] [id number] [address] [place] [id number] May, [facility] [place] [address] [id number] [address] [place] [id number] Jan, [facility] [place] [address] [id number] [address] [place] [phone] Dec, [facility] [place] [address] [id number] [address] [place] [id number] Dec, [facility] [place] [address] [facility] [id number] [address] [place] [id number] Jun, [facility] [place] [address] [facility] [id number] [address] [place] [id number] Apr, Eustachian tube dysfunction, unspecified laterality H69.80 ; Hot flashes N95.1 and Encounter for immunization Z23 [facility] [place] [address] [id number] [address] [place] [phone] Jan, [facility] [place] [address] [facility] [id number] [address] [place] [id number] Jan, [facility] [place] [address] [facility] [id number] [address] [place] [id number] Jan, [facility] [place] [address] [facility] [id number] [address] [place] [phone] Jan, [facility] [place] [address] [facility] [id number] [address] [place] [id number] Jan, Encounter to establish care V65.8 ; Bipolar 1 disorder 296.7 ; Abdominal pain 789.00 ; Constipation 564.00 ; Hard of hearing 389.9 and Drug abuse 305.90 [facility] [place] [address] [facility] [id number] [address] [place] [id number] Dec, [facility] [place] [address] [facility] [id number] [address] [place] [id number] October, [facility] [place] [address] [facility] [id number] [address] [place] [id number] October, [facility] [place] [address] [facility] [id number] [address] [place] [id number] Oct, [facility] [place] [address] [facility] [id number] [address] [place] [id number] Oct, [facility] [place] [address] [facility] [id number] [address] [place] [phone] Oct, [facility] [address] [id number] [address] [place] [address], [place] [phone] Aug, [facility] [address] [id number] [address] [place] [address], [place] [address] Aug, 2014 [facility] [address] [id number] [address] [place] [address], [place] [id number] Aug, [facility] [address] [id number] [address] [place] [address], [place] [address] Aug, 2014 [facility] [address] [id number] [address] [place] [address], [place] [phone] Aug, 2014 [facility] [address] [id number] [address] [place] [address], [place] [address] Aug, 2014 [facility] [address] [id number] [address] [place] [address], [place] [phone] Aug, 2014 [facility] [address] [id number] [address] [place] [address], [place] [address] Aug, 2014 [facility] [address] [id number] [address] [place] [address], [place] [address] Aug, 2014 [facility] [address] [id number] [address] [place] [phone] Aug, 2014 [facility] [address] [id number] [address] [place] [address], [place] [address] Aug, 2014 [facility] [address] [id number] [address] [place] [phone] Aug, 2014 [facility] [address] [id number] [address] [place] [address], [place] [address] Aug, 2014 [facility] [address] [id number] [address] [place] [phone] Aug, 2014 [facility] [address] [id number] [address] [place] [address], [place] [address] Aug, [facility] [address] [id number] [address] [place] [address], [place] [address] Jul, [facility] [address] [id number] [address] [place] [address], [place] [address] Jul, [facility] [address] [id number] [address] [place] [address], [place] [address] Jul, [facility] [address] [id number] [address] [place] [address], [place] [address] Jul, [facility] [address] [id number] [address] [place] [address], [place] [id number] Jul, [facility] [address] [id number] [address] [place] [address], [place] [address] Jul, [facility] [address] [id number] [address] [place] [address], [place] [address] Jul, [facility] [address] [id number] [address] [place] [address], [place] [address] Jul, [facility] [address] [id number] [address] [place] [address], [place] [id number] Jun, [facility] [address] [id number] [address] [place] [address], [place] [id number] Jun, [facility] [address] [id number] [address] [place] [address], [place] [address] Jun, [facility] [address] [id number] [address] [place] [address], [place] [address] Jun, [facility] [address] [id number] [address] [place] [address], [place] [id number] 18 Jun, 2014 [facility] [address] [id number] [address] [place] [address], [place] [id number] 15 Jun, 2014 [facility] [address] [id number] [address] [place] [address], [place] [id number] Jun, [facility] [address] [id number] [address] [place] [address], [place] [id number] Jun, [facility] [address] [id number] [address] [place] [address], [place] [address] Jun, [facility] [address] [id number] [address] [place] [address], [place] [address] Jun, [facility] [address] [id number] [address] [place] [address], [place] [address] Jun, [facility] [address] [id number] [address] [place] [address], [place] [address] May, [facility] [address] [id number] [address] [place] [address], [place] [address] May, [facility] [address] [id number] [address] [place] [address], [place] [address] May, [facility] [address] [id number] [address] [place] [address], [place] [address] May, [facility] [address] [id number] [address] [place] [address], [place] [address] May, [facility] [address] [id number] [address] [place] [address], [place] [address] May, [facility] [address] [id number] [address] [place] [address], [place] [address] May, [facility] [address] [id number] [address] [place] [address], [place] [address] Apr, [facility] [address] [id number] [address] [place] [address], [place] [id number] Apr, [facility] [address] [id number] [address] [place] [address], [place] [address] Apr, [facility] [address] [id number] [address] [place] [address], [place] [id number] Apr, [facility] [address] [id number] [address] [place], [place] [address], [place] [address] Apr, [facility] [address] [id number] [facility] [address] Apr, [facility] [address] [id number] [facility] [address] Mar, [facility] [address] [id number] [address] [place] [address], [place] [address] Mar, [facility] [address] [id number] [address] [place] [address], [place] [address] Mar, [facility] [address] [id number] [address] [place] [address], [place] [address] Mar, [facility] [address] [id number] [address] [place] [address], [place] [address] Mar, [facility] [address] [id number] [address] [place] [address], [place] [address] Mar, [facility] [address] [id number] [address] [place] [address], [place] [address] Jan, [facility] [address] [id number] [address] [place] [address], [place] [address] Jan, [facility] [address] [id number] [address] [place] [address], [place] [address] Jan, [facility] [address] [id number] [address] [place] [address], [place] [address] Jan, [facility] [address] [id number] [address] [place] [address], [place] [address] Dec, [facility] [address] [id number] [address] [place] [address], [place] [address] Dec, [facility] [address] [id number] [address] [place] [address], [place] [address] Dec, [facility] [address] [id number] [address] [place] [address], [place] [address] Dec, [facility] [address] [id number] [address] [place] [address], [place] [address] Dec, [facility] [address] [id number] [address] [place] [address], [place] [address] Dec, [facility] [address] [id number] [address] [place] [address], [place] [address] Dec, [facility] [address] [id number] [address] [place] [address], [place] [address] Dec, [facility] [address] [id number] [address] [place] [address], [place] [address] Dec, [facility] [address] [id number] [address] [place] [address], [place] [address] Dec, [facility] [address] [id number] [address] [place] [address], [place] [address] Dec, [facility] [address] [id number] [address] [place] [address], [place] [address] Dec, [facility] [address] [id number] [address] [place] [address], [place] [address] October, [facility] [address] [id number] [address] [place] [address], [place] [address] October, [facility] [address] [id number] [address] [place] [address], [place] [address] October, [facility] [address] [id number] [address] [place] [address], [place] [address] October, [facility] [address] [id number] [address] [place] [address], [place] [address] October, [facility] [address] [id number] [address] [place] [address], [place] [address] October, [facility] [address] [id number] [address] [place] [address], [place] [address] Oct, [facility] [address] [id number] [address] [place] [address], [place] [address] Oct, [facility] [address] [id number] [facility] [address] Oct, [facility] [address] [id number] [address] [place] [address], [place] [address] Oct, [facility] [address] [id number] [address] [place] [address], [place] [address] Oct, [facility] [address] [id number] [address] [place] [address], [place] [address] Oct, [facility] [address] [id number] [address] [place] [address], [place] [address] Oct, [facility] [address] [id number] [address] [place] [address], [place] [address] Oct, [facility] [address] [id number] [address] [place] [address], [place] [address] Oct, [facility] [address] [id number] [address] [place] [address], [place] [address] Oct, [facility] [address] [id number] [address] [place] [address], [place] [address] Oct, [facility] [address] [id number] [address] [place] [address], [place] [address] Oct, [facility] [address] [id number] [address] [place] [address], [place] [address] Aug, [facility] [address] [id number] [address] [place] [address], [place] [address] Aug, [facility] [address] [id number] [address] [place] [address], [place] [address] Aug, [facility] [address] [id number] [address] [place] [address], [place] [address] Aug, [facility] [address] [id number] [address] [place] [address], [place] [address] 05 Aug, 2013 [facility] [address] [id number] [address] [place] [address], [place] [address] 05 Aug, 2013 [facility] [address] [id number] [address] [address] 04 Aug, 2013 [facility] [address] [id number] [address] [place] [address], [place] [address] Aug, [facility] [address] [id number] [facility] [address] Aug, [facility] [address] [id number] [address] [place] [address], [place] [address] 24 Aug, 2013 [facility] [address] [id number] [address] [place] [address], [place] [address] 24 Aug, 2013 [facility] [address] [id number] [address] [place] [address], [place] [address] Aug, [facility] [address] [id number] [address] [place] [address], [place] [address] Aug, [facility] [address] [id number] [address] [place] [address], [place] [address] 20 Aug, 2013 [facility] [address] [id number] [address] [place] [address], [place] [address] 14 Aug, 2013 [facility] [address] [id number] [address] [place] [address], [place] [address] 14 Aug, 2013 [facility] [address] [id number] [address] [place] [address], [place] [address] 14 Aug, 2013 [facility] [address] [id number] [address] [place] [address], [place] [address] 14 Aug, 2013 [facility] [address] [id number] [address] [place] [address], [place] [address] 07 Aug, 2013 [facility] [address] [id number] [address] [place] [address], [place] [address] 07 Aug, 2013 [facility] [address] [id number] [address] [place] [address], [place] [address] 06 Aug, 2013 [facility] [address] [id number] [address] [place] [address], [place] [address] 06 Aug, 2013 [facility] [address] [id number] [address] [place] [address], [place] [address] Aug, [facility] [address] [id number] [address] [place] [address], [place] [address] Aug, [facility] [address] [id number] [address] [place] [address], [place] [address] Aug, [facility] [address] [id number] [address] [place] [address], [place] [address] Jul, [facility] [address] [id number] [address] [place] [address], [place] [address] Jul, [facility] [address] [id number] [address] [place] [address], [place] [address] Jul, [facility] [address] [id number] [address] [place] [address], [place] [address] Jul, [facility] [address] [id number] [address] [place] [address], [place] [address] Jul, [facility] [address] [id number] [address] [place] [address], [place] [address] Jul, [facility] [address] [id number] [address] [place] [address], [place] [address] Jul, [facility] [address] [id number] [address] [place] [address], [place] [address] Jul, [facility] [address] [id number] [address] [place] [address], [place] [address] Jul, [facility] [address] [id number] [address] [place] [address], [place] [address] Jul, [facility] [address] [id number] [address] [place] [address], [place] [address] Jul, [facility] [address] [id number] [address] [place] [address], [place] [address] 15 Jul, 2013 [facility] [address] [id number] [address] [place] [address], [place] [address] Jul, [facility] [address] [id number] [address] [place] [address], [place] [address] Jul, [facility] [address] [id number] [address] [place] [address], [place] [address] Jul, [facility] [address] [id number] [address] [place] [address], [place] [address] Jul, [facility] [address] [id number] [address] [place] [address], [place] [address] Jul, [facility] [address] [id number] [address] [place] [address], [place] [address] Jul, [facility] [address] [id number] [address] [place] [address], [place] [address] Jul, [facility] [address] [id number] [address] [place] [address], [place] [address] Jul, [facility] [address] [id number] [address] [place] [address], [place] [address] Jun, [facility] [address] [id number] [address] [place] [address], [place] [address] Jun, [facility] [address] [id number] [address] [place] [address], [place] [address] Jun, [facility] [address] [id number] [address] [place] [address], [place] [address] 30 Jun, 2013 [facility] [address] [id number] [address] [place] [address], [place] [address] Jun, [facility] [address] [id number] [address] [place] [address], [place] [address] Jun, [facility] [address] [id number] [address] [place] [address], [place] [address] Jun, [facility] [address] [id number] [address] [place] [address], [place] [address] 26 Jun, 2013 [facility] [address] [id number] [address] [place] [address], [place] [address] 24 Jun, 2013 [facility] [address] [id number] [address] [place] [address], [place] [address] Jun, [facility] [address] [id number] [address] [place] [address], [place] [address] Jun, [facility] [address] [id number] [address] [place] [address], [place] [address] Jun, [facility] [address] [id number] [address] [place] [address], [place] [address] Jun, [facility] [address] [id number] [address] [place] [address], [place] [address] Jun, [facility] [address] [id number] [address] [place] [address], [place] [address] Jun, [facility] [address] [id number] [address] [place] [address], [place] [address] 18 Jun, 2013 [facility] [address] [id number] [address] [place] [address], [place] [address] 18 Jun, 2013 [facility] [address] [id number] [address] [place] [address], [place] [address] 17 Jun, 2013 [facility] [address] [id number] [address] [place] [address], [place] [address] 17 Jun, 2013 [facility] [address] [id number] [address] [place] [address], [place] [address] 13 Jun, 2013 [facility] [address] [id number] [address] [place] [address], [place] [address] 12 Jun, 2013 [facility] [address] [id number] [address] [place] [address], [place] [address] 12 Jun, 2013 [facility] [address] [id number] [address] [place] [address], [place] [address] Jun, [facility] [address] [id number] [address] [place] [address], [place] [address] Jun, [facility] [address] [id number] [address] [place] [address], [place] [address] Jun, [facility] [address] [id number] [address] [place] [address], [place] [address] Jun, [facility] [address] [id number] [address] [place] [address], [place] [address] Jun, [facility] [address] [id number] [address] [place] [address], [place] [address] May, [facility] [address] [id number] [address] [place] [address], [place] [address] May, [facility] [address] [id number] [address] [place] [address], [place] [address] May, [facility] [address] [id number] [address] [place] [address] May, [facility] [address] [id number] [address] [place] [address], [place] [address] May, [facility] [address] [id number] [address] [place] [address] May, [facility] [address] [id number] [address] [place] [address] Apr, [facility] [address] [id number] [address] [place] [address] Apr, [facility] [address] [id number] [address] [place] [address], [place] [address] Apr, [facility] [address] [id number] [address] [place] [address] Apr, [facility] [address] [id number] [address] [place] [address] Apr, [facility] [address] [id number] [address] [place] [address] 15 Apr, 2013 [facility] [address] [id number] [address] [place] [address], [place] [address] 15 Apr, 2013 [facility] [address] [id number] [address] [place] [address], [place] [address] Apr, [facility] [address] [id number] [address] [place] [address], [place] [address] 26 Mar, 2013 [facility] [address] [id number] [address] [place] [address], [place] [address] 24 Mar, 2012 [facility] [address] [id number] [address] [place] [address], [place] [address] 17 Mar, 2013 [facility] [address] [id number] [address] [place] [address], [place] [address] 17 Mar, 2013 [facility] [address] [id number] [address] [place] [address], [place] [address] 11 Mar, 2013 [facility] [address] [id number] [address] [place] [address], [place] [address] 10 Mar, 2013 [facility] [address] [id number] [address] [place] [address], [place] [address] 05 Mar, 2013 [facility] [address] [id number] [address] [place] [address], [place] [address] 04 Mar, 2013 [facility] [address] [id number] [address] [place] [address], [place] [address] 20 Jan, 2013 [facility] [address] [id number] [address] [place] [address], [place] [address] Jan, [facility] [address] [id number] [address] [place] [address], [place] [address] 14 Jan, 2013 [facility] [address] [id number] [address] [place] [address], [place] [address] 12 Jan, 2013 [facility] [address] [id number] [address] [place] [address], [place] [address] 07 Jan, 2013 [facility] [address] [id number] [address] [place] [address], [place] [address] 05 Jan, 2013 [facility] [address] [id number] [address] [place] [address], [place] [address] 31 Dec, 2012 [facility] [address] [id number] [address] [place] [address], [place] [address] 24 Dec, 2012 [facility] [address] [id number] [address] [place] [address], [place] [address] Dec, [facility] [address] [id number] [address] [place] [address], [place] [address] Dec, [facility] [address] [id number] [address] [place] [address], [place] [address] 18 Dec, 2012 [facility] [address] [id number] [address] [place] [address], [place] [address] 17 Dec, 2012 [facility] [address] [id number] [address] [place] [address], [place] [address] 16 Dec, 2012 [facility] [address] [id number] [address] [place] [address], [place] [address] 16 Dec, 2012 [facility] [address] [id number] [address] [place] [address], [place] [address] 15 Dec, 2012 [facility] [address] [id number] [address] [place] [address], [place] [address] Dec, [facility] [address] [id number] [address] [place] [address], [place] [address] Dec, [facility] [address] [id number] [address] [place] [address], [place] [address] Dec, [facility] [address] [id number] [address] [place] [address], [place] [address] Dec, [facility] [address] [id number] [address] [place] [address], [place] [address] 17 Dec, 2012 [facility] [address] [id number] [address] [place] [address], [place] [address] Dec, [facility] [address] [id number] [address] [place] [address], [place] [address] Dec, [facility] [address] [id number] [address] [place] [address], [place] [address] October, [facility] [address] [id number] [address] [place] [address], [place] [address] October, [facility] [address] [id number] [address] [place] [address], [place] [address] October, [facility] [address] [id number] [address] [place] [address], [place] [address] October, [facility] [address] [id number] [address] [place] [address], [place] [address] October, [facility] [address] [id number] [address] [place] [address], [place] [address] October, [facility] [address] [id number] [address] [place] [address], [place] [address] October, [facility] [address] [id number] [address] [place] [address], [place] [address] Oct, [facility] [address] [id number] [address] [place] [address], [place] [address] Oct, [facility] [address] [id number] [address] [place] [address], [place] [address] Oct, [facility] [address] [id number] [address] [place] [address], [place] [address] Oct, [facility] [address] [id number] [address] [place] [address], [place] [address] Oct, [facility] [address] [id number] [address] [place] [address], [place] [address] 18 Oct, 2012 [facility] [address] [id number] [address] [place] [address], [place] [address] Oct, [facility] [address] [id number] [address] [place] [address], [place] [address] 15 Oct, 2012 [facility] [address] [id number] [address] [place] [address], [place] [address] 12 Oct, 2012 [facility] [address] [id number] [address] [place] [address], [place] [address] Oct, [facility] [address] [id number] [address] [place] [address], [place] [address] Oct, [facility] [address] [id number] [address] [place] [address], [place] [address] Oct, [facility] [address] [id number] [address] [place] [address], [place] [address] Aug, [facility] [address] [id number] [address] [place] [address], [place] [address] Aug, [facility] [address] [id number] [address] [place] [address], [place] [address] Aug, [facility] [address] [id number] [address] [place] [address], [place] [address] Aug, [facility] [address] [id number] [address] [place] [address], [place] [address] 05 Aug, 2012 [facility] [address] [id number] [address] [place] [address], [place] [address] 05 Aug, 2012 [facility] [address] [id number] [address] [place] [address], [place] [address] 20 Aug, 2012 [facility] [address] [id number] [address] [place] [address], [place] [address] 14 Aug, 2012 [facility] [address] [id number] [address] [place] [address], [place] [address] Aug, [facility] [address] [id number] [address] [place] [address], [place] [address] Aug, [facility] [address] [id number] [address] [place] [address], [place] [address] Jul, [facility] [address] [id number] [address] [place] [address], [place] [address] 15 Jul, 2012 [facility] [address] [id number] [address] [place] [address], [place] [address] 08 Jul, 2012 [facility] [address] [id number] [address] [place] [address], [place] [address] 20 Jun, 2012 [facility] [address] [id number] [address] [place] [address], [place] [address] 18 Jun, 2012 [facility] [address] [id number] [address] [place] [address], [place] [address] 18 Jun, 2012 [facility] [address] [id number] [address] [place] [address], [place] [address] 18 Jun, 2012 [facility] [address] [id number] [address] [place] [address], [place] [address] 18 Jun, 2012 [facility] [address] [id number] [address] [place] [address], [place] [id number] 14 Jun, 2012 [facility] [address] [id number] [address] [place] [address], [place] [address] 14 Jun, 2012 [facility] [address] [id number] [address] [place] [address], [place] [address] 13 Jun, 2012 [facility] [address] [id number] [address] [place] [address], [place] [address] 13 Jun, 2012 [facility] [address] [id number] [address] [place] [address], [place] [address] 11 Jun, 2012 [facility] [address] [id number] [address] [place] [address], [place] [address] 11 Jun, 2012 [facility] [address] [id number] [address] [place] [address], [place] [address] 11 Jun, 2012 [facility] [address] [id number] [address] [place] [address], [place] [address] 11 Jun, 2012 [facility] [address] [id number] [address] [place] [address], [place] [address] 07 Jun, 2012 [facility] [address] [id number] [address] [place] [address], [place] [address] Jun, [facility] [address] [id number] [address] [place] [address], [place] [address] Jun, [facility] [address] [id number] [address] [place] [address], [place] [address] Jun, [facility] [address] [id number] [address] [place] [address], [place] [address] Jun, [facility] [address] [id number] [address] [place] [address], [place] [address] Jun, [facility] [address] [id number] [address] [place] [address], [place] [address] Jun, [facility] [address] [id number] [address] [place] [address], [place] [address] Jun, [facility] [address] [id number] [address] [place] [address], [place] [address] Jun, [facility] [address] [id number] [address] [place] [address], [place] [address] Jun, [facility] [address] [id number] [address] [place] [address], [place] [address] May, [facility] [address] [id number] [address] [place] [address], [place] [address] May, [facility] [address] [id number] [address] [place] [address] May, [facility] [address] [id number] [address] [place] [address], [place] [address] May, [facility] [address] [id number] [address] [place] [address], [place] [address] May, [facility] [address] [id number] [address] [place] [address], [place] [address] May, [facility] [address] [id number] [address] [place] [address], [place] [address] May, 2011 [facility] [address] [id number] [address] [place] [address], [place] [address] May, [facility] [address] [id number] [address] [place] [address], [place] [address] Apr, [facility] [address] [id number] [address] [place] [address], [place] [address] 30 Apr, 2012 [facility] [address] [id number] [address] [place] [address], [place] [address] 29 Apr, 2012 [facility] [address] [id number] [address] [place] [address], [place] [address] Apr, [facility] [address] [id number] [address] [place] [address], [place] [address] Apr, [facility] [address] [id number] [address] [place] [address], [place] [address] Apr, [facility] [address] [id number] [address] [place] [address], [place] [address] Apr, [facility] [address] [id number] [address] [place] [address], [place] [address] Apr, [facility] [address] [id number] [address] [place] [address], [place] [address] Apr, [facility] [address] [id number] [address] [place] [address], [place] [address] 08 Apr, 2012 [facility] [address] [id number] [address] [place] [address], [place] [address] 04 Apr, 2012 [facility] [address] [id number] [address] [place] [address], [place] [address] Apr, [facility] [address] [id number] [address] [place] [address], [place] [address] 19 Mar, 2012 [facility] [address] [id number] [address] [place] [address], [place] [address] 18 Mar, 2012 [facility] [address] [id number] [address] [place] [address], [place] [address] 12 Mar, 2012 [facility] [address] [id number] [address] [place] [address], [place] [address] Mar, [facility] [address] [id number] [address] [place] [id number] Mar, [facility] [address] [id number] [address] [place] [address], [place] [id number] Mar, [facility] [address] [id number] [address] [place] [address], [place] [address] Mar, [facility] [address] [id number] [address] [place] [address], [place] [address] Jan, [facility] [address] [id number] [address] [place] [address], [place] [address] Jan, [facility] [address] [id number] [address] [place] [id number] Jan, [facility] [address] [id number] [address] [place] [id number] Jan, [facility] [address] [id number] [address] [place] [address], [place] [address] Jan, [facility] [address] [id number] [address] [place] [address], [place] [address] Jan, [facility] [address] [id number] [address] [place] [address] Jan, [facility] [address] [id number] [address] [place] [address], [place] [address] 14 Feb, 2012 [facility] [address] [id number] [address] [place] [address], [place] [address] Jan, [facility] [address] [id number] [address] [place] [address], [place] [address] Jan, [facility] [address] [id number] [address] [place] [address], [place] [address] Jan, [facility] [address] [id number] [address] [place] [address], [place] [address] Dec, [facility] [address] [id number] [address] [place] [address], [place] [address] Dec, [facility] [address] [id number] [address] [place] [address], [place] [address] Dec, [facility] [address] [id number] [address] [place] [address], [place] [address] Dec, [facility] [address] [id number] [address] [place] [address], [place] [address] Dec, [facility] [address] [id number] [address] [place] [address], [place] [address] Dec, [facility] [address] [id number] [address] [place] [address], [place] [address] Dec, [facility] [address] [id number] [address] [place] [address], [place] [address] 17 Jan, 2012 [facility] [address] [id number] [address] [place] [address], [place] [address] 16 Jan, 2012 [facility] [address] [id number] [address] [place] [address], [place] [address] Dec, [facility] [address] [id number] [address] [place] [address], [place] [address] Dec, [facility] [address] [id number] [address] [place] [address], [place] [address] Dec, [facility] [address] [id number] [address] [place] [address], [place] [address] Dec, [facility] [address] [id number] [address] [place] [address], [place] [address] Dec, [facility] [address] [id number] [address] [place] [address], [place] [address] Dec, [facility] [address] [id number] [address] [place] [address], [place] [address] 18 Dec, 2011 [facility] [address] [id number] [address] [place] [address], [place] [address] 15 Dec, 2011 [facility] [address] [id number] [address] [place] [address], [place] [address] 06 Dec, 2011 [facility] [address] [id number] [address] [place] [address], [place] [address] 05 Dec, 2011 [facility] [address] [id number] [address] [place] [address], [place] [address] October, [facility] [address] [id number] [address] [place] [address], [place] [address] October, [facility] [address] [id number] [address] [place] [address], [place] [address] October, [facility] [address] [id number] [address] [place] [address], [place] [address] October, [facility] [address] [id number] [address] [place] [address], [place] [address] October, [facility] [address] [id number] [address] [place] [address], [place] [address] October, [facility] [address] [id number] [address] [place] [address], [place] [address] Oct, [facility] [address] [id number] [address] [place] [address], [place] [address] 24 Oct, 2011 [facility] [address] [id number] [address] [place] [address], [place] [address] Oct, [facility] [address] [id number] [address] [place] [address], [place] [address] Oct, [facility] [address] [id number] [address] [place] [address], [place] [address] Oct, [facility] [address] [id number] [address] [place] [address], [place] [address] Oct, [facility] [address] [id number] [address] [place] [address], [place] [address] Oct, [facility] [address] [id number] [address] [place] [address], [place] [address] 29 Sep, 2011 [facility] [address] [id number] [address] [place] [address], [place] [address] 29 Sep, 2011 [facility] [address] [id number] [address] [place] [address], [place] [address] Aug, [facility] [address] [id number] [address] [place] [address], [place] [address] Aug, [facility] [address] [id number] [address] [place] [address], [place] [address] 05 Sep, 2011 [facility] [address] [id number] [address] [place] [address], [place] [address] Aug, [facility] [address] [id number] [address] [place] [address], [place] [address] Aug, [facility] [address] [id number] [address] [place] [address], [place] [address] Aug, [facility] [address] [id number] [address] [place] [address], [place] [address] Aug, [facility] [address] [id number] [address] [place] [address], [place] [address] Jul, [facility] [address] [id number] [address] [place] [address], [place] [address] Jul, [facility] [address] [id number] [address] [place] [address], [place] [address] Jul, [facility] [address] [id number] [address] [place] [address], [place] [address] Jul, [facility] [address] [id number] [address] [place] [address], [place] [address] Jun, [facility] [address] [id number] [address] [place] [address], [place] [address] Jun, [facility] [address] [id number] [address] [place] [address], [place] [address] May, [facility] [address] [id number] [address] [place] [address], [place] [address] May, [facility] [address] [id number] [address] [place] [address], [place] [address] May, [facility] [address] [id number] [address] [place] [address], [place] [address] May, [facility] [address] [id number] [address] [place] [address], [place] [address] May, [facility] [address] [id number] [address] [place] [address], [place] [address] Apr, [facility] [address] [id number] [address] [place] [address], [place] [address] Apr, [facility] [address] [id number] [address] [place] [address], [place] [address] Apr, [facility] [address] [id number] [address] [place] [address], [place] [address] 15 Jan, 2011 [facility] [address] [id number] [address] [place] [address], [place] [address] Dec, [facility] [address] [id number] [address] [place] [address], [place] [address] October, [facility] [address] [id number] [address] [place] [address], [place] [address] Jun, [facility] [address] [id number] [address] [place] [address], [place] [address] 23 Apr, 2009 [facility] [address] [id number] [address] [place] [address], [place] [address] 13 Apr, 2009 [facility] [address] [id number] [address] [place] [address], [place] [address] Apr, [facility] [address] [facility] [id number] [address] [place] [address] Jun, IMMUNIZATIONS No Known Immunizations SOCIAL HISTORY [...]
--- OUTSIDE RECORDS SUMMARY | 2020-01-25 12:41 | XMS REPORT ---
Author Author Ana Brannon [facility] Address [address] [place] [address] Care Team Providers Care Audio/Visual Operator Name Role Phone ClovisBLANCHEEN Unavailable PROBLEMS Type Condition ICD9-CM Code BTU93-CH Code Onset Dates Condition S tatus SNOMED Code Problem Attention deficit R41.840 Active 76 809480 Problem Chronic hepatitis C without hepatic coma B18.2 Active 721210021 Problem Cannabis abuse F12.10 Active 12919 009 Problem Bipolar disorder, in partial remission, most rec ent episode hypomanic F31.71 Active 954598230 Problem Attention deficit hyperactivity disorder (ADHD), combi luciano type F90.2 Active 31535920 Problem Bipolar 1 disorder F31.9 Active 3 60633223 Problem H/O laminectomy Z98.89 Active 1616 31942 Problem Other chronic pain G89.29 Active 8 9576016 Problem Anxiety disorder, unspecified type F41.9 Active [id number] ALLERGIES No Information ENCOUNTERS Encounter Location Date Diagnosis [facility] [address] [facility] [id number] [address] [place] [phone] Dec, [facility] [address] [facility] [id number] [address] [place] [address] Dec, Other chronic pain G89.29 an d Low back pain M54.5 [facility] [address] [facility] [id number] [address] [place] [address] October, [facility] [address] [facility] [id number] [address] [place] [address] October, [facility] [address] [facility] [id number] [address] [place] [address] October, [facility] [address] [facility] [id number] [address] [place] [address] October, Other chronic pain G89.29 an d Chronic hepatitis C without hepatic coma B18.2 [facility] [address] [id number] [address] [place] [phone] Aug, Bipolar disorder, in partial remission, most recent episode hypomanic F31.71 ; Attention deficit hyperactivity disorder (ADHD), combined type F90.2 and Anxiety disorder, unspecified type F41.9 [facility] [address] [id number] [address] [place] [phone] Aug, [facility] [address] [id number] [address] [place] [address] Aug, Bipolar disorder, in partial remission, most recent episode hypomanic F31.71 [facility] [address] [id number] [address] [place] [phone] Aug, [facility] [address] [facility] [id number] [address] [place] [address] Aug, Bipolar disorder, in partial remission, most recent episode hypomanic F31.71 [facility] [address] [id number] [address] [place] [address] Aug, Bipolar disorder, in partial remission, most recent episode hypomanic F31.71 ; Attention deficit hyperactivity disorder (ADHD), combined type F90.2 and Anxiety disorder, unspecified type F41.9 [facility] [address] [id number] [address] [place] [address] Aug, Low back pain M54.5 and Pain in left wrist M25.532 [facility] [address] [id number] [address] [place] [address] Aug, [facility] [address] [facility] [id number] [address] [place] [address] Jun, [facility] [address] [id number] [address] [place] [address] Apr, Bipolar disorder, in partial remission, most recent episode hypomanic F31.71 [facility] [address] [id number] [address] [place] [address] Apr, [facility] [address] [id number] [address] [place] [address] Apr, Bipolar disorder, in partial remission, most recent episode hypomanic F31.71 ; Attention deficit hyperactivity disorder (ADHD), combined type F90.2 ; Anxiety disorder, unspecified type F41.9 and 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 [facility] [address] [id number] [address] [place] [address] Apr, Bipolar disorder, in partial remission, most recent episode hypomanic F31.71 [facility] [address] [facility] [id number] [address] [place] [phone] Apr, Bipolar disorder, in partial remission, most recent episode hypomanic F31.71 [facility] [address] [facility] [id number] [address] [place] [phone] Mar, [facility] [address] [facility] [id number] [address] [place] [address] Mar, Bipolar disorder, in partial remission, most recent episode hypomanic F31.71 ; Encounter for immunization Z23 and Low back pain M54.5 [facility] [address] [id number] [address] [place] [phone] 17 Mar, 2018 Bipolar disorder, in partial remission, most recent episode hypomanic F31.71 [facility] [address] [id number] [address] [place] [phone] Mar, Bipolar disorder, in partial remission, most recent episode hypomanic F31.71 [facility] [address] [facility] [id number] [address] [place] [phone] Jan, Bipolar disorder, in partial remission, most recent episode hypomanic F31.71 [facility] [address] [facility] [id number] [address] [place] [address] Jan, Bipolar disorder, in partial remission, most recent episode hypomanic F31.71 [facility] [address] [id number] [address] [place] [phone] Dec, Bipolar disorder, in partial remission, most recent episode hypomanic F31.71 [facility] [address] [id number] [address] [place] [phone] Dec, Bipolar disorder, in partial remission, most recent episode hypomanic F31.71 ; Attention deficit hyperactivity disorder (ADHD), combined type F90.2 ; Anxiety disorder, unspecified type F41.9 and 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 [facility] [address] [id number] [address] [place] [address] Dec, Bipolar disorder, in partial remission, most recent episode hypomanic F31.71 [facility] [address] [id number] [address] [place] [id number] Dec, Bipolar disorder, in partial remission, most recent episode hypomanic F31.71 [facility] [address] [id number] [address] [place] [address] October, Bipolar disorder, in partial remission, most recent episode hypomanic F31.71 [facility] [address] [id number] [address] [place] [phone] October, [facility] [address] [id number] [address] [place] [phone] October, [facility] [address] [id number] [address] [place] [address] Oct, Bipolar disorder, in partial remission, most recent episode hypomanic F31.71 ; Attention deficit hyperactivity disorder (ADHD), combined type F90.2 ; Anxiety disorder, unspecified type F41.9 and Encounter for drug screening Z02.83 [facility] [address] [id number] [address] [place] [address] Oct, Bipolar disorder, in partial remission, most recent episode hypomanic F31.71 [facility] [address] [id number] [address] [place] [phone] Oct, Bipolar disorder, in partial remission, most recent episode hypomanic F31.71 [facility] [address] [facility] [id number] [address] [place] [phone] Aug, Bipolar disorder, in partial remission, most recent episode hypomanic F31.71 [facility] [address] [facility] [id number] [address] [place] [phone] Aug, Bipolar disorder, in partial remission, most recent episode hypomanic F31.71 [facility] [address] [id number] [address] [place] [address] Aug, Bipolar disorder, in partial remission, most recent episode hypomanic F31.71 [facility] [address] [facility] [id number] [address] [place] [phone] Jul, Bipolar disorder, in partial remission, most recent episode hypomanic F31.71 ; Attention deficit hyperactivity disorder (ADHD), combined type F90.2 and Anxiety disorder, unspecified type F41.9 [facility] [address] [facility] [id number] [address] [place] [phone] Jul, Bipolar disorder, in partial remission, most recent episode hypomanic F31.71 [facility] [address] [facility] [id number] [address] [place] [phone] Jun, Bipolar disorder, in partial remission, most recent episode hypomanic F31.71 [facility] [address] [facility] [id number] [address] [place] [phone] May, Bipolar disorder, in partial remission, most recent episode hypomanic F31.71 [facility] [address] [facility] [id number] [address] [place] [address] May, Bipolar disorder, in partial remission, most recent episode hypomanic F31.71 [facility] [address] [facility] [id number] [address] [place] [phone] Apr, [facility] [address] [facility] [id number] [address] [place] [phone] Apr, Bipolar disorder, in partial remission, most recent episode hypomanic F31.71 ; Attention deficit hyperactivity disorder (ADHD), combined type F90.2 ; Anxiety disorder, unspecified type F41.9 and Cannabis abuse F12.10 [facility] [address] [id number] [address] [place] [phone] Apr, Attention deficit hyperactiv ity disorder (ADHD), combined type F90.2 [facility] [address] [id number] [address] [place] [phone] Mar, Attention deficit hyperactiv ity disorder (ADHD), combined type F90.2 [facility] [address] [id number] [address] [place] [phone] Mar, Anxiety disorder, unspecifie d type F41.9 [facility] [address] [id number] [address] [place] [phone] Jan, Attention deficit hyperactiv ity disorder (ADHD), combined type F90.2 [facility] [address] [facility] [id number] [address] [place] [phone] Jan, Anxiety disorder, unspecifie d type F41.9 [facility] [address] [facility] [id number] [address] [place] [phone] Jan, Other chronic pain G89.29 ; Chronic hepatitis C without hepatic coma B18.2 and Bipolar 1 disorder F31.9 [facility] [address] [facility] [id number] [address] [place] [phone] Dec, Attention deficit hyperactiv ity disorder (ADHD), combined type F90.2 [facility] [address] [id number] [address] [place] [phone] Dec, Bipolar disorder, in partial remission, most recent episode hypomanic F31.71 ; Attention deficit hyperactivity disorder (ADHD), combined type F90.2 and Anxiety disorder, unspecified type F41.9 [facility] [address] [id number] [address] [place] [address] Dec, Bipolar disorder, in partial remission, most recent episode hypomanic F31.71 ; Attention deficit hyperactivity disorder (ADHD), combined type F90.2 and Anxiety disorder, unspecified type F41.9 [facility] [address] [id number] [address] [place] [address] Dec, Bipolar 1 disorder F31.9 and Attention deficit R41.840 [facility] [address] [id number] [address] [place] [address] Oct, Other chronic pain G89.29 ; Alopecia L65.9 and Screening, lipid Z13.220 [facility] [address] [id number] [address] [place] [address] Oct, [facility] [address] [facility] [id number] [address] [place] [phone] Aug, [facility] [address] [facility] [id number] [address] [place] [address] Aug, Eustachian tube dysfunction, right H69.81 ; Vertigo R42 and Other chronic pain G89.29 [facility] [address] [id number] [address] [place] [address] Aug, [facility] [address] [facility] [id number] [address] [place] [phone] Jun, [facility] [address] [id number] [address] [place] [phone] Jun, Low back pain M54.5 and Othe r chronic pain G89.29 [facility] [address] [id number] [address] [place] [phone] Jun, [facility] [address] [id number] [address] [place] [phone] May, [facility] [address] [id number] [address] [place] [phone] Jan, [facility] [address] [facility] [id number] [address] [place] [phone] Dec, [facility] [address] [facility] [id number] [address] [place] [phone] Dec, [facility] [address] [facility] [id number] [address] [place] [phone] Jun, [facility] [address] [facility] [id number] [address] [place] [address] Apr, Eustachian tube dysfunction, unspecified laterality H69.80 ; Hot flashes N95.1 and Encounter for immunization Z23 [facility] [address] [id number] [address] [place] [phone] Jan, [facility] [address] [facility] [id number] [address] [place] [phone] Jan, [facility] [address] [facility] [id number] [address] [place] [phone] Jan, [facility] [address] [facility] [id number] [address] [place] [phone] Jan, [facility] [address] [facility] [id number] [address] [place] [address] Jan, Encounter to establish care V65.8 ; Bipolar 1 disorder 296.7 ; Abdominal pain 789.00 ; Constipation 564.00 ; Hard of hearing 389.9 and Drug abuse 305.90 [facility] [address] [facility] [id number] [address] [place] [address] Dec, [facility] [address] [facility] [id number] [address] [place] [phone] October, [facility] [address] [facility] [id number] [address] [place] [phone] October, [facility] [address] [facility] [id number] [address] [place] [phone] Oct, [facility] [address] [facility] [id number] [address] [place] [phone] Oct, [facility] [address] [id number] [address] [place] [address], [place] [address] Oct, [facility] [address] [id number] [address] [place] [address], [place] [address] Aug, [facility] [address] [id number] [address] [place] [address], [place] [address] Aug, [facility] [address] [id number] [address] [place] [address], [place] [address] Aug, [facility] [address] [id number] [address] [place] [address], [place] [address] Aug, 2014 [facility] [address] [id number] [address] [place] [address], [place] [address] Aug, 2014 [facility] [address] [id number] [address] [place] [address], [place] [address] Aug, 2014 [facility] [address] [id number] [address] [place] [address], [place] [address] Aug, 2014 [facility] [address] [id number] [address] [place] [address], [place] [address] Aug, 2014 [facility] [address] [id number] [address] [place] [address], [place] [address] Aug, 2014 [facility] [address] [id number] [address] [place] [address], [place] [address] Aug, 2014 [facility] [address] [id number] [address] [place] [address], [place] [address] Aug, 2014 [facility] [address] [id number] [address] [place] [address], [place] [address] Aug, 2014 [facility] [address] [id number] [address] [place] [address], [place] [address] Aug, 2014 [facility] [address] [id number] [address] [place] [address] Aug, 2014 [facility] [address] [id number] [address] [place] [phone] Aug, [facility] [address] [id number] [address] [place] [address], [place] [address] Jul, [facility] [address] [id number] [address] [place] [address], [place] [address] Jul, [facility] [address] [id number] [address] [place] [address], [place] [address] Jul, [facility] [address] [id number] [address] [place] [address], [place] [address] Jul, [facility] [address] [id number] [address] [place] [address], [place] [address] Jul, [facility] [address] [id number] [address] [place] [address], [place] [address] Jul, [facility] [address] [id number] [address] [place] [address], [place] [address] Jul, [facility] [address] [id number] [address] [place] [address], [place] [address] Jul, [facility] [address] [id number] [address] [place] [address], [place] [address] Jun, [facility] [address] [id number] [address] [place] [address], [place] [address] Jun, [facility] [address] [id number] [address] [place] [address], [place] [address] Jun, [facility] [address] [id number] [address] [place] [address], [place] [address] 29 Jun, 2014 [facility] [address] [id number] [address] [place] [address], [place] [address] 18 Jun, 2014 [facility] [address] [id number] [address] [place] [address], [place] [address] 15 Jun, 2014 [facility] [address] [id number] [address] [place] [address], [place] [address] 15 Jun, 2014 [facility] [address] [id number] [address] [place] [address], [place] [address] Jun, [facility] [address] [id number] [address] [place] [address], [place] [address] Jun, [facility] [address] [id number] [address] [place] [address], [place] [address] Jun, [facility] [address] [id number] [address] [place] [address], [place] [address] Jun, [facility] [address] [id number] [address] [place] [address], [place] [address] May, [facility] [address] [id number] [address] [place] [address], [place] [address] May, [facility] [address] [id number] [address] [place] [address], [place] [address] May, [facility] [address] [id number] [address] [place] [address], [place] [address] May, [facility] [address] [id number] [address] [place] [address], [place] [address] May, [facility] [address] [id number] [address] [place] [address], [place] [address] May, [facility] [address] [id number] [address] [place] [address], [place] [address] May, [facility] [address] [id number] [address] [place] [address], [place] [address] Apr, [facility] [address] [id number] [address] [place] [address], [place] [address] Apr, [facility] [address] [id number] [address] [place] [address], [place] [address] Apr, [facility] [address] [id number] [address] [place] [address], [place] [address] Apr, [facility] [address] [id number] [address] [place] [address], [place] [address] Apr, [facility] [address] [id number] [address] [place] [address], [place] [address] Apr, [facility] [address] [id number] [address] [place] [address], [place] [address] Mar, [facility] [address] [id number] [address] [place] [address], [place] [address] Mar, [facility] [address] [id number] [address] [place] [address], [place] [address] Mar, [facility] [address] [id number] [address] [place] [address], [place] [address] Mar, [facility] [address] [id number] [address] [place] [address], [place] [address] Mar, [facility] [address] [id number] [address] [place] [address], [place] [address] Mar, [facility] [address] [id number] [address] [place] [address], [place] [address] Jan, [facility] [address] [id number] [address] [place] [address], [place] [address] Jan, [facility] [address] [id number] [address] [place] [address], [place] [address] Jan, [facility] [address] [id number] [address] [place] [address], [place] [address] Jan, [facility] [address] [id number] [address] [place] [address], [place] [address] Dec, [facility] [address] [id number] [address] [place] [address], [place] [address] Dec, [facility] [address] [id number] [address] [place] [address], [place] [address] Dec, [facility] [address] [id number] [address] [place] [address], [place] [address] Dec, [facility] [address] [id number] [address] [place] [address], [place] [address] Dec, [facility] [address] [id number] [address] [place] [address], [place] [address] Dec, [facility] [address] [id number] [address] [place] [address], [place] [address] Dec, [facility] [address] [id number] [address] [place] [address], [place] [address] Dec, [facility] [address] [id number] [address] [place] [address], [place] [address] Dec, [facility] [address] [id number] [address] [place] [address], [place] [address] Dec, [facility] [address] [id number] [address] [place] [address], [place] [address] Dec, [facility] [address] [id number] [address] [place] [address], [place] [address] Dec, [facility] [address] [id number] [address] [place] [address], [place] [address] October, [facility] [address] [id number] [address] [place] [address], [place] [address] October, [facility] [address] [id number] [address] [place] [address], [place] [address] October, [facility] [address] [id number] [address] [place] [address], [place] [address] October, [facility] [address] [id number] [address] [place] [address], [place] [address] October, [facility] [address] [id number] [address] [place] [address], [place] [address] October, [facility] [address] [id number] [address] [place] [address], [place] [address] Oct, [facility] [address] [id number] [address] [place] [address], [place] [address] Oct, [facility] [address] [id number] [facility] [place] [address] Oct, [facility] [address] [id number] [facility] [place] [address] Oct, [facility] [address] [id number] [facility] [place] [address] Oct, [facility] [address] [id number] [facility] [place] [address] Oct, [facility] [address] [id number] [facility] [place] [address] Oct, [facility] [address] [id number] [address] [place] [address], [place] [address] Oct, [facility] [address] [id number] [address] [place] [address], [place] [address] Oct, [facility] [address] [id number] [address] [place] [address], [place] [address] Oct, [facility] [address] [id number] [address] [place] [address], [place] [address] Oct, [facility] [address] [id number] [address] [place] [address], [place] [address] Oct, [facility] [address] [id number] [address] [place] [address], [place] [address] 15 Aug, 2013 [facility] [address] [id number] [address] [place] [address], [place] [address] 15 Aug, 2013 [facility] [address] [id number] [address] [place] [address], [place] [address] Aug, [facility] [address] [id number] [address] [place] [address], [place] [address] Aug, [facility] [address] [id number] [address] [place] [address], [place] [address] 05 Aug, 2013 [facility] [address] [id number] [address] [place] [address], [place] [address] 05 Aug, 2013 [facility] [address] [id number] [address] [place] [address], [place] [address] Aug, [facility] [address] [id number] [address] [place] [address], [place] [address] Aug, [facility] [address] [id number] [address] [place] [address], [place] [address] Aug, [facility] [address] [id number] [address] [place] [address], [place] [address] 24 Aug, 2013 [facility] [address] [id number] [address] [place] [address], [place] [address] 24 Aug, 2013 [facility] [address] [id number] [address] [place] [address], [place] [address] Aug, [facility] [address] [id number] [address] [place] [address], [place] [address] Aug, [facility] [address] [id number] [address] [place] [address], [place] [address] 20 Aug, 2013 [facility] [address] [id number] [address] [place] [address], [place] [address] 14 Aug, 2013 [facility] [address] [id number] [address] [place] [address], [place] [address] 14 Aug, 2013 [facility] [address] [id number] [address] [place] [address], [place] [address] 14 Aug, 2013 [facility] [address] [id number] [address] [place] [address], [place] [address] 14 Aug, 2013 [facility] [address] [id number] [address] [place] [address], [place] [address] 07 Aug, 2013 [facility] [address] [id number] [address] [place] [address], [place] [address] 07 Aug, 2013 [facility] [address] [id number] [address] [place] [address], [place] [address] 06 Aug, 2013 [facility] [address] [id number] [address] [place] [address], [place] [address] Aug, [facility] [address] [id number] [address] [place] [address], [place] [address] Aug, [facility] [address] [id number] [address] [place] [address], [place] [address] Aug, [facility] [address] [id number] [address] [place] [address], [place] [address] Aug, [facility] [address] [id number] [address] [place] [address], [place] [address] Jul, [facility] [address] [id number] [address] [place] [address], [place] [address] Jul, [facility] [address] [id number] [address] [place] [address], [place] [address] Jul, [facility] [address] [id number] [address] [place] [address], [place] [address] Jul, [facility] [address] [id number] [address] [place] [address], [place] [address] Jul, [facility] [address] [id number] [address] [place] [address], [place] [address] Jul, [facility] [address] [id number] [address] [place] [address], [place] [address] Jul, [facility] [address] [id number] [address] [place] [address], [place] [address] Jul, [facility] [address] [id number] [address] [place] [address], [place] [address] Jul, [facility] [address] [id number] [address] [place] [address], [place] [address] Jul, [facility] [address] [id number] [address] [place] [address], [place] [address] Jul, [facility] [address] [id number] [address] [place] [address], [place] [address] 15 Jul, 2013 [facility] [address] [id number] [address] [place] [address], [place] [address] Jul, [facility] [address] [id number] [address] [place] [address], [place] [address] Jul, [facility] [address] [id number] [address] [place] [address], [place] [address] Jul, [facility] [address] [id number] [address] [place] [address], [place] [address] Jul, [facility] [address] [id number] [address] [place] [address], [place] [address] Jul, [facility] [address] [id number] [address] [place] [address], [place] [address] Jul, [facility] [address] [id number] [address] [place] [address], [place] [address] Jul, [facility] [address] [id number] [address] [place] [address], [place] [address] Jul, [facility] [address] [id number] [address] [place] [address], [place] [address] Jun, [facility] [address] [id number] [address] [place] [address], [place] [address] Jun, [facility] [address] [id number] [address] [place] [address], [place] [address] 30 Jun, 2013 [facility] [address] [id number] [address] [place] [address], [place] [address] 30 Jun, 2013 [facility] [address] [id number] [address] [place] [address], [place] [address] Jun, [facility] [address] [id number] [address] [place] [address], [place] [address] Jun, [facility] [address] [id number] [address] [place] [address], [place] [address] Jun, [facility] [address] [id number] [address] [place] [address], [place] [address] Jun, [facility] [address] [id number] [address] [place] [address], [place] [address] Jun, [facility] [address] [id number] [address] [place] [address], [place] [address] Jun, [facility] [address] [id number] [address] [place] [address], [place] [address] Jun, [facility] [address] [id number] [address] [place] [address], [place] [address] Jun, [facility] [address] [id number] [address] [place] [address], [place] [address] Jun, [facility] [address] [id number] [address] [place] [address], [place] [address] Jun, [facility] [address] [id number] [address] [place] [address], [place] [address] Jun, [facility] [address] [id number] [address] [place] [address], [place] [address] 18 Jun, 2013 [facility] [address] [id number] [address] [place] [address], [place] [address] 18 Jun, 2013 [facility] [address] [id number] [address] [place] [address], [place] [address] 17 Jun, 2013 [facility] [address] [id number] [address] [place] [address], [place] [address] 17 Jun, 2013 [facility] [address] [id number] [address] [place] [address], [place] [address] 13 Jun, 2013 [facility] [address] [id number] [address] [place] [address], [place] [address] 12 Jun, 2013 [facility] [address] [id number] [address] [place] [address], [place] [address] 12 Jun, 2013 [facility] [address] [id number] [address] [place] [address] [address] Jun, [facility] [address] [id number] [address] [place] [address], [place] [address] Jun, [facility] [address] [id number] [address] [place] [address], [place] [address] Jun, [facility] [address] [id number] [address] [place] [address], [place] [address] Jun, [facility] [address] [id number] [address] [place] [address], [place] [address] Jun, [facility] [address] [id number] [address] [place] [address], [place] [address] May, [facility] [address] [id number] [address] [place] [address], [place] [address] May, [facility] [address] [id number] [address] [place] [address], [place] [address] May, [facility] [address] [id number] [address] [place] [address] May, [facility] [address] [id number] [address] [place] [address] May, [facility] [address] [id number] [address] [place] [address] May, [facility] [address] [id number] [address] [place] [address] Apr, [facility] [address] [id number] [address] [place] [address] Apr, [facility] [address] [id number] [address] [place] [address] Apr, [facility] [address] [id number] [address] [place] [address] Apr, [facility] [address] [id number] [address] [place] [address] Apr, [facility] [address] [id number] [address] [place] [address], [place] [address] 15 Apr, 2013 [facility] [address] [id number] [address] [place] [address], [place] [address] 15 Apr, 2013 [facility] [address] [id number] [address] [place] [address], [place] [address] 01 Apr, 2013 [facility] [address] [id number] [address] [place] [address], [place] [address] 26 Mar, 2012 [facility] [address] [id number] [address] [place] [address], [place] [address] 24 Mar, 2012 [facility] [address] [id number] [address] [place] [address], [place] [address] 17 Mar, 2012 [facility] [address] [id number] [address] [place] [address], [place] [address] 17 Mar, [address] [facility] [address] [id number] [address] [place] [address], [place] [address] 11 Mar, 2012 [facility] [address] [id number] [address] [place] [address], [place] [address] 10 Mar, 2013 [facility] [address] [id number] [address] [place] [address], [place] [address] 05 Mar, 2012 [facility] [address] [id number] [address] [place] [address], [place] [address] 04 Mar, 2013 [facility] [address] [id number] [address] [place] [address], [place] [address] 20 Jan, 2013 [facility] [address] [id number] [address] [place] [address], [place] [address] 19 Jan, 2013 [facility] [address] [id number] [address] [place] [address], [place] [address] 14 Jan, 2013 [facility] [address] [id number] [address] [place] [address], [place] [address] 12 Jan, 2013 [facility] [address] [id number] [address] [place] [address], [place] [address] Jan, [facility] [address] [id number] [address] [place] [address], [place] [address] Jan, [facility] [address] [id number] [address] [place] [address], [place] [address] Dec, [facility] [address] [id number] [address] [place] [address], [place] [address] Dec, [facility] [address] [id number] [address] [place] [address], [place] [address] Dec, [facility] [address] [id number] [address] [place] [address], [place] [address] Dec, [facility] [address] [id number] [address] [place] [address], [place] [address] Dec, [facility] [address] [id number] [address] [place] [address], [place] [address] Dec, [facility] [address] [id number] [address] [place] [address], [place] [address] Dec, [facility] [address] [id number] [address] [place] [address], [place] [address] Dec, [facility] [address] [id number] [address] [place] [address], [place] [address] 15 Dec, 2012 [facility] [address] [id number] [address] [place] [address], [place] [address] Dec, [facility] [address] [id number] [address] [place] [address], [place] [address] Dec, [facility] [address] [id number] [address] [place] [address], [place] [address] Dec, [facility] [address] [id number] [address] [place] [address], [place] [address] Dec, [facility] [address] [id number] [address] [place] [address], [place] [address] 17 Dec, 2012 [facility] [address] [id number] [address] [place] [address], [place] [address] Dec, [facility] [address] [id number] [address] [place] [address], [place] [address] Dec, [facility] [address] [id number] [address] [place] [address], [place] [address] October, [facility] [address] [id number] [address] [place] [address], [place] [address] October, [facility] [address] [id number] [address] [place] [address], [place] [address] October, [facility] [address] [id number] [address] [place] [address], [place] [address] October, [facility] [address] [id number] [address] [place] [address], [place] [address] October, [facility] [address] [id number] [address] [place] [address], [place] [address] October, [facility] [address] [id number] [address] [place] [address], [place] [address] October, [facility] [address] [id number] [address] [place] [address], [place] [address] Oct, [facility] [address] [id number] [address] [place] [address], [place] [address] Oct, [facility] [address] [id number] [address] [place] [address], [place] [address] Oct, [facility] [address] [id number] [address] [place] [address], [place] [address] Oct, [facility] [address] [id number] [address] [place] [address], [place] [address] Oct, [facility] [address] [id number] [address] [place] [address], [place] [address] 18 Oct, 2012 [facility] [address] [id number] [address] [place] [address], [place] [address] Oct, [facility] [address] [id number] [address] [place] [address], [place] [address] 15 Oct, 2012 [facility] [address] [id number] [address] [place] [address], [place] [address] Oct, [facility] [address] [id number] [address] [place] [address], [place] [address] Oct, [facility] [address] [id number] [address] [place] [address], [place] [address] Oct, [facility] [address] [id number] [address] [place] [address], [place] [address] Oct, [facility] [address] [id number] [address] [place] [address], [place] [address] Aug, [facility] [address] [id number] [address] [place] [address], [place] [address] Aug, [facility] [address] [id number] [address] [place] [address], [place] [address] Aug, [facility] [address] [id number] [address] [place] [address], [place] [address] Aug, [facility] [address] [id number] [address] [place] [address], [place] [address] Aug, [facility] [address] [id number] [address] [place] [address], [place] [address] 05 Aug, 2012 [facility] [address] [id number] [address] [place] [address], [place] [address] 20 Aug, 2012 [facility] [address] [id number] [address] [place] [address], [place] [address] 14 Aug, 2012 [facility] [address] [id number] [address] [place] [address], [place] [address] 12 Aug, 2012 [facility] [address] [id number] [address] [place] [address], [place] [address] Aug, [facility] [address] [id number] [address] [place] [address] [address] 29 Jul, 2012 [facility] [address] [id number] [address] [place] [address], [place] [address] 15 Jul, 2012 [facility] [address] [id number] [address] [place] [address], [place] [address] 08 Jul, 2012 [facility] [address] [id number] [address] [place] [address], [place] [address] 20 Jun, 2012 [facility] [address] [id number] [address] [place] [address], [place] [address] 18 Jun, 2012 [facility] [address] [id number] [address] [place] [address], [place] [address] 18 Jun, 2012 [facility] [address] [id number] [address] [place] [address], [place] [address] 18 Jun, 2012 [facility] [address] [id number] [address] [place] [address], [place] [address] 18 Jun, 2012 [facility] [address] [id number] [address] [place] [address], [place] [address] 14 Jun, 2012 [facility] [address] [id number] [address] [place] [address], [place] [address] 14 Jun, 2012 [facility] [address] [id number] [address] [place] [address], [place] [address] 13 Jun, 2012 [facility] [address] [id number] [address] [place] [address], [place] [address] 13 Jun, 2012 [facility] [address] [id number] [address] [place] [address], [place] [address] 11 Jun, 2012 [facility] [address] [id number] [address] [place] [address], [place] [address] 11 Jun, 2012 [facility] [address] [id number] [address] [place] [address], [place] [address] 11 Jun, 2012 [facility] [address] [id number] [address] [place] [address], [place] [address] 11 Jun, 2012 [facility] [address] [id number] [address] [place] [address], [place] [address] 07 Jun, 2012 [facility] [address] [id number] [address] [place] [address], [place] [address] Jun, [facility] [address] [id number] [address] [place] [address], [place] [address] Jun, [facility] [address] [id number] [address] [place] [address], [place] [address] 06 Jun, 2012 [facility] [address] [id number] [address] [place] [address], [place] [address] Jun, [facility] [address] [id number] [address] [place] [address], [place] [address] Jun, [facility] [address] [id number] [address] [place] [address], [place] [address] Jun, [facility] [address] [id number] [address] [place] [address], [place] [address] Jun, [facility] [address] [id number] [address] [place] [address], [place] [address] Jun, [facility] [address] [id number] [address] [place] [address], [place] [address] Jun, [facility] [address] [id number] [address] [place] [address], [place] [address] May, [facility] [address] [id number] [address] [place] [address], [place] [address] May, [facility] [address] [id number] [address] [place] [address], [place] [address] May, [facility] [address] [id number] [address] [place] [address], [place] [address] May, [facility] [address] [id number] [address] [place] [address], [place] [address] May, [facility] [address] [id number] [address] [place] [address], [place] [address] May, [facility] [address] [id number] [address] [place] [address], [place] [address] May, [facility] [address] [id number] [address] [place] [address], [place] [address] May, [facility] [address] [id number] [address] [place] [address], [place] [address] Apr, [facility] [address] [id number] [address] [place] [address], [place] [address] Apr, [facility] [address] [id number] [address] [place] [address], [place] [address] Apr, [facility] [address] [id number] [address] [place] [address], [place] [address] Apr, [facility] [address] [id number] [address] [place] [address], [place] [address] Apr, [facility] [address] [id number] [address] [place] [address], [place] [address] Apr, [facility] [address] [id number] [address] [place] [address], [place] [address] Apr, [facility] [address] [id number] [address] [place] [address], [place] [address] Apr, [facility] [address] [id number] [address] [place] [address], [place] [address] Apr, [facility] [address] [id number] [address] [place] [address] Apr, [facility] [address] [id number] [address] [place] [address], [place] [address] Apr, [facility] [address] [id number] [address] [place] [address], [place] [address] Apr, [facility] [address] [id number] [address] [place] [address], [place] [address] Mar, [facility] [address] [id number] [address] [place] [id number] 18 Mar, 2012 [facility] [address] [id number] [address] [place] [address], [place] [address] 12 Mar, 2012 [facility] [address] [id number] [address] [place] [address], [place] [id number] Mar, [facility] [address] [id number] [address] [place] [address] [id number] Mar, [facility] [address] [id number] [address] [place] [address] [id number] Mar, [facility] [address] [id number] [address] [place] [address], [place] [address] Mar, [facility] [address] [id number] [address] [place] [id number] Jan, [facility] [address] [id number] [address] [place] [id number] Jan, [facility] [address] [id number] [address] [place] [id number] Jan, [facility] [address] [id number] [address] [place] [address] [id number] Jan, [facility] [address] [id number] [address] [place] [id number] Jan, [facility] [address] [id number] [address] [place] [id number] Jan, [facility] [address] [id number] [address] [place] [id number] Jan, [facility] [address] [id number] [address] [place] [address], [place] [address] 14 Feb, 2012 [facility] [address] [id number] [address] [place] [address], [place] [address] Jan, [facility] [address] [id number] [address] [place] [address], [place] [address] Jan, [facility] [address] [id number] [address] [place] [address], [place] [address] Jan, [facility] [address] [id number] [address] [place] [address], [place] [address] Dec, [facility] [address] [id number] [address] [place] [address], [place] [address] Dec, [facility] [address] [id number] [address] [place] [address], [place] [address] Dec, [facility] [address] [id number] [address] [place] [address], [place] [address] Dec, [facility] [address] [id number] [address] [place] [address], [place] [address] Dec, [facility] [address] [id number] [address] [place] [address], [place] [address] Dec, [facility] [address] [id number] [address] [place] [address], [place] [address] Dec, [facility] [address] [id number] [address] [place] [address], [place] [address] 17 Jan, 2012 [facility] [address] [id number] [address] [place] [address], [place] [address] 16 Jan, 2012 [facility] [address] [id number] [address] [place] [address], [place] [address] Dec, [facility] [address] [id number] [address] [place] [address], [place] [address] Dec, [facility] [address] [id number] [address] [place] [address], [place] [address] Dec, [facility] [address] [id number] [address] [place] [address], [place] [address] Dec, [facility] [address] [id number] [address] [place] [address], [place] [address] Dec, [facility] [address] [id number] [address] [place] [address], [place] [address] Dec, [facility] [address] [id number] [address] [place] [address], [place] [address] Dec, [facility] [address] [id number] [address] [place] [address], [place] [address] Dec, [facility] [address] [id number] [address] [place] [address], [place] [address] Dec, [facility] [address] [id number] [address] [place] [address], [place] [address] Dec, [facility] [address] [id number] [address] [place] [address], [place] [address] October, [facility] [address] [id number] [address] [place] [address], [place] [address] October, [facility] [address] [id number] [address] [place] [address], [place] [address] October, [facility] [address] [id number] [address] [place] [address], [place] [address] October, [facility] [address] [id number] [address] [place] [address], [place] [address] October, [facility] [address] [id number] [address] [place] [address], [place] [address] October, [facility] [address] [id number] [address] [place] [address], [place] [address] Oct, [facility] [address] [id number] [address] [place] [address], [place] [address] Oct, [facility] [address] [id number] [address] [place] [address], [place] [address] Oct, [facility] [address] [id number] [address] [place] [address], [place] [address] Oct, [facility] [address] [id number] [address] [place] [address], [place] [address] Oct, [facility] [address] [id number] [address] [place] [address], [place] [address] Oct, [facility] [address] [id number] [address] [place] [address], [place] [address] Oct, [facility] [address] [id number] [address] [place] [address], [place] [address] 29 Sep, 2011 [facility] [address] [id number] [address] [place] [address], [place] [address] 29 Sep, 2011 [facility] [address] [id number] [address] [place] [address], [place] [address] Aug, [facility] [address] [id number] [address] [place] [address], [place] [address] Aug, [facility] [address] [id number] [address] [place] [address], [place] [address] Aug, [facility] [address] [id number] [address] [place] [address], [place] [address] Aug, [facility] [address] [id number] [address] [place] [address], [place] [address] Aug, [facility] [address] [id number] [address] [place] [address], [place] [address] Aug, [facility] [address] [id number] [address] [place] [address], [place] [address] Aug, [facility] [address] [id number] [address] [place] [address], [place] [address] Jul, [facility] [address] [id number] [address] [place] [address], [place] [address] Jul, [facility] [address] [id number] [address] [place] [address], [place] [address] Jul, [facility] [address] [id number] [address] [place] [address], [place] [address] Jul, [facility] [address] [id number] [address] [place] [address], [place] [address] Jun, [facility] [address] [id number] [address] [place] [address], [place] [address] Jun, [facility] [address] [id number] [address] [place] [address], [place] [address] May, [facility] [address] [id number] [address] [place] [address], [place] [address] May, [facility] [address] [id number] [address] [place] [address], [place] [address] May, [facility] [address] [id number] [address] [place] [address], [place] [address] May, [facility] [address] [id number] [address] [place] [address], [place] [address] May, [facility] [address] [id number] [address] [place] [address], [place] [address] Apr, [facility] [address] [id number] [address] [place] [address], [place] [address] Apr, [facility] [address] [id number] [address] [place] [address], [place] [address] Apr, [facility] [address] [id number] [address] [place] [address], [place] [address] 15 Jan, 2011 [facility] [address] [id number] [address] [place] [address], [place] [address] 13 Dec, 2010 [facility] [address] [id number] [address] [place] [address], [place] [address] October, [facility] [address] [id number] [address] [place] [address], [place] [address] Jun, [facility] [address] [id number] [address] [place] [address], [place] [address] 23 Apr, 2009 [facility] [address] [id number] [address] [place] [address], [place] [address] 13 Apr, 2009 [facility] [address] [id number] [address] [place] [address], [place] [address] Apr, [facility] [address] [facility] [id number] [address] [place] [address] Jun, IMMUNIZATIONS No Known Immunizations SOCIAL HISTORY [...]
--- OUTSIDE RECORDS SUMMARY | 2020-01-25 12:42 | XMS REPORT ---
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 Name Role Phone CHAZ MCDONALD Unavailable PROBLEMS Type Condition ICD9-CM Code DTC14-UL Code Onset Dates Condition S tatus SNOMED Code Problem Attention deficit R41.840 Active 76 851683 Problem Chronic hepatitis C without hepatic coma B18.2 Active 636916159 Problem Cannabis abuse F12.10 Active 41932 009 Problem Bipolar disorder, in partial remission, most rec ent episode hypomanic F31.71 Active 761313455 Problem Attention deficit hyperactivity disorder (ADHD), combi luciano type F90.2 Active 40156921 Problem Bipolar 1 disorder F31.9 Active 3 90382614 Problem H/O laminectomy Z98.89 Active 1616 20436 Problem Other chronic pain G89.29 Active 8 3914889 Problem Anxiety disorder, unspecified type F41.9 Active [id number] ALLERGIES No Information ENCOUNTERS Encounter Location Date Diagnosis [facility] [address] [id number] [address] [place] [address] Dec, [facility] [address] [id number] [address] [place] [address] Dec, Other chronic pain G89.29 an d Low back pain M54.5 [facility] [address] [id number] [address] [place] [address] October, [facility] [address] [id number] [address] [place] [address] October, [facility] [address] [id number] [address] [place] [address] October, [facility] [address] [id number] [address] [place] [address] October, Other chronic pain G89.29 an d Chronic hepatitis C without hepatic coma B18.2 [facility] [address] [id number] [address] [place] [address] Aug, Bipolar disorder, in partial remission, most recent episode hypomanic F31.71 ; Attention deficit hyperactivity disorder (ADHD), combined type F90.2 and Anxiety disorder, unspecified type F41.9 [facility] [address] [id number] [address] [place] [phone] Aug, [facility] [address] [id number] [address] [place] [address] Aug, Bipolar disorder, in partial remission, most recent episode hypomanic F31.71 [facility] [address] [id number] [address] [place] [address] Aug, [facility] [address] [id number] [address] [place] [address] Aug, Bipolar disorder, in partial remission, most recent episode hypomanic F31.71 [facility] [address] [id number] [address] [place] [address] Aug, Bipolar disorder, in partial remission, most recent episode hypomanic F31.71 ; Attention deficit hyperactivity disorder (ADHD), combined type F90.2 and Anxiety disorder, unspecified type F41.9 [facility] [address] [id number] [address] [place] [address] Aug, Low back pain M54.5 and Pain in left wrist M25.532 [facility] [address] [id number] [address] [place] [address] Aug, [facility] [address] [id number] [address] [place] [address] Jun, [facility] [address] [id number] [address] [place] [address] Apr, Bipolar disorder, in partial remission, most recent episode hypomanic F31.71 [facility] [address] [id number] [address] [place] [address] Apr, [facility] [address] [id number] [address] [place] [address] Apr, Bipolar disorder, in partial remission, most recent episode hypomanic F31.71 ; Attention deficit hyperactivity disorder (ADHD), combined type F90.2 ; Anxiety disorder, unspecified type F41.9 and 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 [facility] [address] [id number] [address] [place] [address] Apr, Bipolar disorder, in partial remission, most recent episode hypomanic F31.71 [facility] [address] [id number] [address] [place] [address] Apr, Bipolar disorder, in partial remission, most recent episode hypomanic F31.71 [facility] [address] [id number] [address] [place] [address] Mar, [facility] [address] [id number] [address] [place] [address] Mar, Bipolar disorder, in partial remission, most recent episode hypomanic F31.71 ; Encounter for immunization Z23 and Low back pain M54.5 [facility] [address] [id number] [address] [place] [address] Mar, Bipolar disorder, in partial remission, most recent episode hypomanic F31.71 [facility] [address] [id number] [address] [place] [address] Mar, Bipolar disorder, in partial remission, most recent episode hypomanic F31.71 [facility] [address] [id number] [address] [place] [address] Jan, Bipolar disorder, in partial remission, most recent episode hypomanic F31.71 [facility] [address] [id number] [address] [place] [address] Jan, Bipolar disorder, in partial remission, most recent episode hypomanic F31.71 [place] [place] [address] [id number] [address] [place] [address] Dec, Bipolar disorder, in partial remission, most recent episode hypomanic F31.71 [facility] [address] [id number] [address] [place] [address] Dec, Bipolar disorder, in partial remission, most recent episode hypomanic F31.71 ; Attention deficit hyperactivity disorder (ADHD), combined type F90.2 ; Anxiety disorder, unspecified type F41.9 and 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 (current) 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 Z79.899 [facility] [address] [id number] [address] [place] [address] Dec, Bipolar disorder, in partial remission, most recent episode hypomanic F31.71 [facility] [address] [id number] [address] [place] [address] Dec, Bipolar disorder, in partial remission, most recent episode hypomanic F31.71 [facility] [address] [id number] [address] [place] [address] October, Bipolar disorder, in partial remission, most recent episode hypomanic F31.71 [facility] [address] [id number] [address] [place] [address] October, [facility] [address] [id number] [address] [place] [address] October, [facility] [address] [id number] [address] [place] [address] Oct, Bipolar disorder, in partial remission, most recent episode hypomanic F31.71 ; Attention deficit hyperactivity disorder (ADHD), combined type F90.2 ; Anxiety disorder, unspecified type F41.9 and Encounter for drug screening Z02.83 [facility] [address] [id number] [address] [place] [address] Oct, Bipolar disorder, in partial remission, most recent episode hypomanic F31.71 [facility] [address] [id number] [address] [place] [address] Oct, Bipolar disorder, in partial remission, most recent episode hypomanic F31.71 [facility] [address] [id number] [address] [place] [address] Aug, Bipolar disorder, in partial remission, most recent episode hypomanic F31.71 [facility] [address] [id number] [address] [place] [address] Aug, Bipolar disorder, in partial remission, most recent episode hypomanic F31.71 [facility] [address] [id number] [address] [place] [address] Aug, Bipolar disorder, in partial remission, most recent episode hypomanic F31.71 [facility] [address] [id number] [address] [place] [address] Jul, Bipolar disorder, in partial remission, most recent episode hypomanic F31.71 ; Attention deficit hyperactivity disorder (ADHD), combined type F90.2 and Anxiety disorder, unspecified type F41.9 [facility] [address] [id number] [address] [place] [address] Jul, Bipolar disorder, in partial remission, most recent episode hypomanic F31.71 [facility] [address] [id number] [address] [place] [address] Jun, Bipolar disorder, in partial remission, most recent episode hypomanic F31.71 [facility] [address] [id number] [address] [place] [address] May, Bipolar disorder, in partial remission, most recent episode hypomanic F31.71 [facility] [address] [id number] [address] [place] [address] May, Bipolar disorder, in partial remission, most recent episode hypomanic F31.71 [facility] [address] [id number] [address] [place] [address] Apr, [facility] [address] [id number] [address] [place] [address] Apr, Bipolar disorder, in partial remission, most recent episode hypomanic F31.71 ; Attention deficit hyperactivity disorder (ADHD), combined type F90.2 ; Anxiety disorder, unspecified type F41.9 and Cannabis abuse F12.10 [facility] [address] [id number] [address] [place] [phone] 13 Apr, 2017 Attention deficit hyperactiv ity disorder (ADHD), combined type F90.2 [facility] [address] [id number] [address] [place] [address] Mar, Attention deficit hyperactiv ity disorder (ADHD), combined type F90.2 [facility] [address] [id number] [address] [place] [id number] 14 Mar, 2017 Anxiety disorder, unspecifie d type F41.9 [facility] [address] [id number] [address] [place] [address] Jan, Attention deficit hyperactiv ity disorder (ADHD), combined type F90.2 [facility] [address] [id number] [address] [place] [address] Jan, Anxiety disorder, unspecifie d type F41.9 [facility] [address] [id number] [address] [place] [address] Jan, Other chronic pain G89.29 ; Chronic hepatitis C without hepatic coma B18.2 and Bipolar 1 disorder F31.9 [facility] [address] [id number] [address] [place] [phone] Dec, Attention deficit hyperactiv ity disorder (ADHD), combined type F90.2 [facility] [address] [id number] [address] [place] [address] Dec, Bipolar disorder, in partial remission, most recent episode hypomanic F31.71 ; Attention deficit hyperactivity disorder (ADHD), combined type F90.2 and Anxiety disorder, unspecified type F41.9 [facility] [address] [id number] [address] [place] [address] Dec, Bipolar disorder, in partial remission, most recent episode hypomanic F31.71 ; Attention deficit hyperactivity disorder (ADHD), combined type F90.2 and Anxiety disorder, unspecified type F41.9 [facility] [address] [id number] [address] [place] [address] Dec, Bipolar 1 disorder F31.9 and Attention deficit R41.840 [facility] [address] [id number] [address] [place] [address] Oct, Other chronic pain G89.29 ; Alopecia L65.9 and Screening, lipid Z13.220 [facility] [address] [id number] [address] [place] [phone] Oct, [facility] [address] [id number] [address] [place] [phone] Aug, [facility] [address] [id number] [address] [place] [address] Aug, Eustachian tube dysfunction, right H69.81 ; Vertigo R42 and Other chronic pain G89.29 [facility] [address] [id number] [address] [place] [address] Aug, [facility] [address] [id number] [address] [place] [phone] Jun, [facility] [address] [id number] [address] [place] [address] Jun, Low back pain M54.5 and Othe r chronic pain G89.29 [facility] [address] [id number] [address] [place] [address] Jun, [facility] [address] [id number] [address] [place] [address] May, [facility] [address] [id number] [address] [place] [phone] Jan, [facility] [address] [id number] [address] [place] [address] Dec, [facility] [address] [id number] [address] [place] [address] Dec, [facility] [address] [id number] [address] [place] [phone] Jun, [facility] [address] [id number] [address] [place] [address] Apr, Eustachian tube dysfunction, unspecified laterality H69.80 ; Hot flashes N95.1 and Encounter for immunization Z23 [facility] [address] [id number] [address] [place] [phone] Jan, [facility] [address] [id number] [address] [place] [address] Jan, [facility] [address] [id number] [address] [place] [phone] Jan, [facility] [address] [id number] [address] [place] [address] Jan, [facility] [address] [id number] [address] [place] [address] Jan, Encounter to establish care V65.8 ; Bipolar 1 disorder 296.7 ; Abdominal pain 789.00 ; Constipation 564.00 ; Hard of hearing 389.9 and Drug abuse 305.90 [facility] [address] [id number] [address] [place] [address] Dec, [facility] [address] [id number] [address] [place] [phone] October, [facility] [address] [id number] [address] [place] [address] October, [facility] [address] [id number] [address] [place] [phone] Oct, [facility] [address] [id number] [address] [place] [address] Oct, [facility] [address] [id number] [address] [place] [phone] Oct, [facility] [address] [id number] [address] [place] [address], [place] [address] Aug, [facility] [address] [id number] [address] [place] [address], [place] [address] Aug, 2014 [facility] [address] [id number] [address] [place] [address], [place] [address] Aug, [facility] [address] [id number] [address] [place] [address], [place] [address] Aug, 2014 [facility] [address] [id number] [address] [place] [address], [place] [address] Aug, 2014 [facility] [address] [id number] [address] [place] [address], [place] [address] Aug, 2014 [facility] [address] [id number] [address] [place] [address], [place] [address] Aug, 2014 [facility] [address] [id number] [address] [place] [address], [place] [address] Aug, 2014 [facility] [address] [id number] [address] [place] [address], [place] [address] Aug, 2014 [facility] [address] [id number] [address] [place] [address] Aug, 2014 [facility] [address] [id number] [address] [place] [address], [place] [address] Aug, 2014 [facility] [address] [id number] [address] [place] [phone] Aug, 2014 [facility] [address] [id number] [address] [place] [address], [place] [address] Aug, 2014 [facility] [address] [id number] [address] [place] [phone] Aug, 2014 [facility] [address] [id number] [address] [place] [address], [place] [address] Aug, [facility] [address] [id number] [address] [place] [address], [place] [address] Jul, [facility] [address] [id number] [address] [place] [address], [place] [address] Jul, [facility] [address] [id number] [address] [place] [address], [place] [address] Jul, [facility] [address] [id number] [address] [place] [address], [place] [address] Jul, [facility] [address] [id number] [address] [place] [address], [place] [address] Jul, [facility] [address] [id number] [address] [place] [address], [place] [address] Jul, [facility] [address] [id number] [address] [place] [address], [place] [address] Jul, [facility] [address] [id number] [address] [place] [address], [place] [address] Jul, [facility] [address] [id number] [address] [place] [address], [place] [address] Jun, [facility] [address] [id number] [address] [place] [address], [place] [address] Jun, [facility] [address] [id number] [address] [place] [address], [place] [address] Jun, [facility] [address] [id number] [address] [place] [address], [place] [address] Jun, [facility] [address] [id number] [address] [place] [address], [place] [address] 18 Jun, 2014 [facility] [address] [id number] [address] [place] [address], [place] [address] 15 Jun, 2014 [facility] [address] [id number] [address] [place] [address], [place] [address] Jun, [facility] [address] [id number] [address] [place] [address], [place] [address] Jun, [facility] [address] [id number] [address] [place] [address], [place] [address] Jun, [facility] [address] [id number] [address] [place] [address], [place] [address] Jun, [facility] [address] [id number] [address] [place] [address], [place] [address] Jun, [facility] [address] [id number] [address] [place] [address], [place] [address] May, [facility] [address] [id number] [address] [place] [address], [place] [address] May, [facility] [address] [id number] [address] [place] [address], [place] [address] May, [facility] [address] [id number] [address] [place] [address], [place] [address] May, [facility] [address] [id number] [address] [place] [address], [place] [address] May, [facility] [address] [id number] [address] [place] [address], [place] [address] May, [facility] [address] [id number] [address] [place] [address], [place] [address] May, [facility] [address] [id number] [address] [place] [address], [place] [address] Apr, [facility] [address] [id number] [address] [place] [address], [place] [address] Apr, [facility] [address] [id number] [address] [place] [address], [place] [address] Apr, [facility] [address] [id number] [address] [place] [address], [place] [address] Apr, [facility] [address] [id number] [address] [place] [address], [place] [address] Apr, [facility] [address] [id number] [facility] [place] [address] Apr, [facility] [address] [id number] [facility] [place] [address] Mar, [facility] [address] [id number] [address] [place] [address], [place] [address] Mar, [facility] [address] [id number] [address] [place] [address], [place] [address] Mar, [facility] [address] [id number] [address] [place] [address], [place] [address] Mar, [facility] [address] [id number] [address] [place] [address], [place] [address] Mar, [facility] [address] [id number] [address] [place] [address], [place] [address] Mar, [facility] [address] [id number] [address] [place] [address], [place] [address] Jan, [facility] [address] [id number] [address] [place] [address], [place] [address] Jan, [facility] [address] [id number] [address] [place] [address], [place] [address] Jan, [facility] [address] [id number] [address] [place] [address], [place] [address] Jan, [facility] [address] [id number] [address] [place] [address], [place] [address] Dec, [facility] [address] [id number] [address] [place] [address], [place] [address] Dec, [facility] [address] [id number] [address] [place] [address], [place] [address] Dec, [facility] [address] [id number] [address] [place] [address], [place] [address] Dec, [facility] [address] [id number] [address] [place] [address], [place] [address] Dec, [facility] [address] [id number] [address] [place] [address], [place] [address] Dec, [facility] [address] [id number] [address] [place] [address], [place] [address] Dec, [facility] [address] [id number] [address] [place] [address], [place] [address] Dec, [facility] [address] [id number] [address] [place] [address], [place] [address] Dec, [facility] [address] [id number] [address] [place] [address], [place] [address] Dec, [facility] [address] [id number] [address] [place] [address], [place] [address] Dec, [facility] [address] [id number] [address] [place] [address], [place] [address] Dec, [facility] [address] [id number] [address] [place] [address], [place] [address] October, [facility] [address] [id number] [address] [place] [address], [place] [address] October, [facility] [address] [id number] [address] [place] [address], [place] [address] October, [facility] [address] [id number] [address] [place] [address], [place] [address] October, [facility] [address] [id number] [address] [place] [address], [place] [address] October, [facility] [address] [id number] [address] [place] [address], [place] [address] October, [facility] [address] [id number] [address] [place] [address], [place] [address] Oct, [facility] [address] [id number] [address] [place] [address], [place] [address] Oct, [facility] [address] [id number] [facility] [place] [address] Oct, [facility] [address] [id number] [address] [place] [address], [place] [address] Oct, [facility] [address] [id number] [address] [place] [address], [place] [address] Oct, [facility] [address] [id number] [address] [place] [address], [place] [address] Oct, [facility] [address] [id number] [address] [place] [address], [place] [address] Oct, [facility] [address] [id number] [address] [place] [address], [place] [address] Oct, [facility] [address] [id number] [address] [place] [address], [place] [address] Oct, [facility] [address] [id number] [address] [place] [address], [place] [address] Oct, [facility] [address] [id number] [address] [place] [address], [place] [address] Oct, [facility] [address] [id number] [address] [place] [address], [place] [address] Oct, [facility] [address] [id number] [address] [place] [address], [place] [address] Aug, [facility] [address] [id number] [address] [place] [address], [place] [address] Aug, [facility] [address] [id number] [address] [place] [address], [place] [address] Aug, [facility] [address] [id number] [address] [place] [address], [place] [address] Aug, [facility] [address] [id number] [address] [place] [address], [place] [address] 05 Aug, 2013 [facility] [address] [id number] [address] [place] [address], [place] [address] 05 Aug, 2013 [facility] [address] [id number] [facility] [place] [address] 04 Aug, 2013 [facility] [address] [id number] [address] [place] [address], [place] [address] Aug, [facility] [address] [id number] [facility] [place] [address] Aug, [facility] [address] [id number] [address] [place] [address], [place] [address] 24 Aug, 2013 [facility] [address] [id number] [address] [place] [address], [place] [address] 24 Aug, 2013 [facility] [address] [id number] [address] [place] [address], [place] [address] Aug, [facility] [address] [id number] [address] [place] [address], [place] [address] Aug, [facility] [address] [id number] [address] [place] [address], [place] [address] 20 Aug, 2013 [facility] [address] [id number] [address] [place] [address], [place] [address] 14 Aug, 2013 [facility] [address] [id number] [address] [place] [address], [place] [address] 14 Aug, 2013 [facility] [address] [id number] [address] [place] [address], [place] [address] 14 Aug, 2013 [facility] [address] [id number] [address] [place] [address], [place] [address] 14 Aug, 2013 [facility] [address] [id number] [address] [place] [address], [place] [address] 07 Aug, 2013 [facility] [address] [id number] [address] [place] [address], [place] [address] 07 Aug, 2013 [facility] [address] [id number] [address] [place] [address], [place] [address] 06 Aug, 2013 [facility] [address] [id number] [address] [place] [address], [place] [address] 06 Aug, 2013 [facility] [address] [id number] [address] [place] [address], [place] [address] Aug, [facility] [address] [id number] [address] [place] [address], [place] [address] Aug, [facility] [address] [id number] [address] [place] [address], [place] [address] Aug, [facility] [address] [id number] [address] [place] [address], [place] [address] Jul, [facility] [address] [id number] [address] [place] [address], [place] [address] Jul, [facility] [address] [id number] [address] [place] [address], [place] [address] Jul, [facility] [address] [id number] [address] [place] [address], [place] [address] Jul, [facility] [address] [id number] [address] [place] [address], [place] [address] Jul, [facility] [address] [id number] [address] [place] [address], [place] [address] Jul, [facility] [address] [id number] [address] [place] [address], [place] [address] Jul, [facility] [address] [id number] [address] [place] [address], [place] [address] Jul, [facility] [address] [id number] [address] [place] [address], [place] [address] Jul, [facility] [address] [id number] [address] [place] [address], [place] [address] Jul, [facility] [address] [id number] [address] [place] [address], [place] [address] Jul, [facility] [address] [id number] [address] [place] [address], [place] [address] 15 Jul, 2013 [facility] [address] [id number] [address] [place] [address], [place] [address] Jul, [facility] [address] [id number] [address] [place] [address], [place] [address] Jul, [facility] [address] [id number] [address] [place] [address], [place] [address] Jul, [facility] [address] [id number] [address] [place] [address], [place] [address] Jul, [facility] [address] [id number] [address] [place] [address], [place] [address] Jul, [facility] [address] [id number] [address] [place] [address], [place] [address] Jul, [facility] [address] [id number] [address] [place] [address], [place] [address] Jul, [facility] [address] [id number] [address] [place] [address], [place] [address] Jul, [facility] [address] [id number] [address] [place] [address], [place] [address] Jun, [facility] [address] [id number] [address] [place] [address], [place] [address] Jun, [facility] [address] [id number] [address] [place] [address], [place] [address] Jun, [facility] [address] [id number] [address] [place] [address], [place] [address] 30 Jun, 2013 [facility] [address] [id number] [address] [place] [address], [place] [address] Jun, [facility] [address] [id number] [address] [place] [address], [place] [address] Jun, [facility] [address] [id number] [address] [place] [address], [place] [address] Jun, [facility] [address] [id number] [address] [place] [address], [place] [address] 26 Jun, 2013 [facility] [address] [id number] [address] [place] [address], [place] [address] 24 Jun, 2013 [facility] [address] [id number] [address] [place] [address], [place] [address] Jun, [facility] [address] [id number] [address] [place] [address], [place] [address] Jun, [facility] [address] [id number] [address] [place] [address], [place] [address] Jun, [facility] [address] [id number] [address] [place] [address], [place] [address] Jun, [facility] [address] [id number] [address] [place] [address], [place] [address] Jun, [facility] [address] [id number] [address] [place] [address], [place] [address] Jun, [facility] [address] [id number] [address] [place] [address], [place] [address] 18 Jun, 2013 [facility] [address] [id number] [address] [place] [address], [place] [address] 18 Jun, 2013 [facility] [address] [id number] [address] [place] [address], [place] [address] 17 Jun, 2013 [facility] [address] [id number] [address] [place] [address], [place] [address] 17 Jun, 2013 [facility] [address] [id number] [address] [place] [address], [place] [address] 13 Jun, 2013 [facility] [address] [id number] [address] [place] [address], [place] [address] 12 Jun, 2013 [facility] [address] [id number] [address] [place] [address], [place] [address] 12 Jun, 2013 [facility] [address] [id number] [address] [place] [address], [place] [address] Jun, [facility] [address] [id number] [address] [place] [address], [place] [address] Jun, [facility] [address] [id number] [address] [place] [address], [place] [address] Jun, [facility] [address] [id number] [address] [place] [address], [place] [address] Jun, [facility] [address] [id number] [address] [place] [address], [place] [address] Jun, [facility] [address] [id number] [address] [place] [address], [place] [address] May, [facility] [address] [id number] [address] [place] [address], [place] [address] May, [facility] [address] [id number] [address] [place] [address], [place] [address] May, [facility] [address] [id number] [address] [place] [address] May, [facility] [address] [id number] [address] [place] [address], [place] [address] May, [facility] [address] [id number] [address] [place] [address] May, [facility] [address] [id number] [address] [place] [address] Apr, [facility] [address] [id number] [address] [place] [address] Apr, [facility] [address] [id number] [address] [place] [address], [place] [address] Apr, [facility] [address] [id number] [address] [place] [address] Apr, [facility] [address] [id number] [address] [place] [address] Apr, [facility] [address] [id number] [address] [place] [address] 15 Apr, 2013 [facility] [address] [id number] [address] [place] [address], [place] [address] 15 Apr, 2013 [facility] [address] [id number] [address] [place] [address], [place] [address] Apr, [facility] [address] [id number] [address] [place] [address], [place] [address] 26 Mar, 2013 [facility] [address] [id number] [address] [place] [address], [place] [address] 24 Mar, 2012 [facility] [address] [id number] [address] [place] [address], [place] [address] 17 Mar, 2013 [facility] [address] [id number] [address] [place] [address], [place] [address] 17 Mar, 2013 [facility] [address] [id number] [address] [place] [address], [place] [address] 11 Mar, 2013 [facility] [address] [id number] [address] [place] [address], [place] [address] 10 Mar, 2013 [facility] [address] [id number] [address] [place] [address], [place] [address] 05 Mar, 2013 [facility] [address] [id number] [address] [place] [address], [place] [address] 04 Mar, 2013 [facility] [address] [id number] [address] [place] [address], [place] [address] 20 Jan, 2013 [facility] [address] [id number] [address] [place] [address], [place] [address] Jan, [facility] [address] [id number] [address] [place] [address], [place] [address] 14 Jan, 2013 [facility] [address] [id number] [address] [place] [address], [place] [address] 12 Jan, 2013 [facility] [address] [id number] [address] [place] [address], [place] [address] 07 Jan, 2013 [facility] [address] [id number] [address] [place] [address], [place] [address] 05 Jan, 2013 [facility] [address] [id number] [address] [place] [address], [place] [address] 31 Dec, 2012 [facility] [address] [id number] [address] [place] [address], [place] [address] 24 Dec, 2012 [facility] [address] [id number] [address] [place] [address], [place] [address] Dec, [facility] [address] [id number] [address] [place] [address], [place] [address] Dec, [facility] [address] [id number] [address] [place] [address], [place] [address] 18 Dec, 2012 [facility] [address] [id number] [address] [place] [address], [place] [address] 17 Dec, 2012 [facility] [address] [id number] [address] [place] [address], [place] [address] 16 Dec, 2012 [facility] [address] [id number] [address] [place] [address], [place] [address] 16 Dec, 2012 [facility] [address] [id number] [address] [place] [address], [place] [address] 15 Dec, 2012 [facility] [address] [id number] [address] [place] [address], [place] [address] Dec, [facility] [address] [id number] [address] [place] [address], [place] [address] Dec, [facility] [address] [id number] [address] [place] [address], [place] [address] Dec, [facility] [address] [id number] [address] [place] [address], [place] [address] Dec, [facility] [address] [id number] [address] [place] [address], [place] [address] 17 Dec, 2012 [facility] [address] [id number] [address] [place] [address], [place] [address] Dec, [facility] [address] [id number] [address] [place] [address], [place] [address] Dec, [facility] [address] [id number] [address] [place] [address], [place] [address] October, [facility] [address] [id number] [address] [place] [address], [place] [address] October, [facility] [address] [id number] [address] [place] [address], [place] [address] October, [facility] [address] [id number] [address] [place] [address], [place] [address] October, [facility] [address] [id number] [address] [place] [address], [place] [address] October, [facility] [address] [id number] [address] [place] [address], [place] [address] October, [facility] [address] [id number] [address] [place] [address], [place] [address] October, [facility] [address] [id number] [address] [place] [address], [place] [address] Oct, [facility] [address] [id number] [address] [place] [address], [place] [address] Oct, [facility] [address] [id number] [address] [place] [address], [place] [address] Oct, [facility] [address] [id number] [address] [place] [address], [place] [address] Oct, [facility] [address] [id number] [address] [place] [address], [place] [address] Oct, [facility] [address] [id number] [address] [place] [address], [place] [address] 18 Oct, 2012 [facility] [address] [id number] [address] [place] [address], [place] [address] Oct, [facility] [address] [id number] [address] [place] [address], [place] [address] 15 Oct, 2012 [facility] [address] [id number] [address] [place] [address], [place] [address] 12 Oct, 2012 [facility] [address] [id number] [address] [place] [address], [place] [address] Oct, [facility] [address] [id number] [address] [place] [address], [place] [address] Oct, [facility] [address] [id number] [address] [place] [address], [place] [address] Oct, [facility] [address] [id number] [address] [place] [address], [place] [address] Aug, [facility] [address] [id number] [address] [place] [address], [place] [address] Aug, [facility] [address] [id number] [address] [place] [address], [place] [address] Aug, [facility] [address] [id number] [address] [place] [address], [place] [address] Aug, [facility] [address] [id number] [address] [place] [address], [place] [address] 05 Aug, 2012 [facility] [address] [id number] [address] [place] [address], [place] [address] 05 Aug, 2012 [facility] [address] [id number] [address] [place] [address], [place] [address] 20 Aug, 2012 [facility] [address] [id number] [address] [place] [address], [place] [address] 14 Aug, 2012 [facility] [address] [id number] [address] [place] [address], [place] [address] Aug, [facility] [address] [id number] [address] [place] [address], [place] [address] Aug, [facility] [address] [id number] [address] [place] [address], [place] [address] Jul, [facility] [address] [id number] [address] [place] [address], [place] [address] 15 Jul, 2012 [facility] [address] [id number] [address] [place] [address], [place] [address] 08 Jul, 2012 [facility] [address] [id number] [address] [place] [address], [place] [address] 20 Jun, 2012 [facility] [address] [id number] [address] [place] [address], [place] [address] 18 Jun, 2012 [facility] [address] [id number] [address] [place] [address], [place] [address] 18 Jun, 2012 [facility] [address] [id number] [address] [place] [address], [place] [address] 18 Jun, 2012 [facility] [address] [id number] [address] [place] [address], [place] [address] 18 Jun, 2012 [facility] [address] [id number] [address] [place] [address], [place] [address] 14 Jun, 2012 [facility] [address] [id number] [address] [place] [address], [place] [address] 14 Jun, 2012 [facility] [address] [id number] [address] [place] [address], [place] [address] 13 Jun, 2012 [facility] [address] [id number] [address] [place] [address], [place] [address] 13 Jun, 2012 [facility] [address] [id number] [address] [place] [address], [place] [address] 11 Jun, 2012 [facility] [address] [id number] [address] [place] [address], [place] [address] 11 Jun, 2012 [facility] [address] [id number] [address] [place] [address], [place] [address] 11 Jun, 2012 [facility] [address] [id number] [address] [place] [address], [place] [address] 11 Jun, 2012 [facility] [address] [id number] [address] [place] [address], [place] [address] 07 Jun, 2012 [facility] [address] [id number] [address] [place] [address], [place] [address] Jun, [facility] [address] [id number] [address] [place] [address], [place] [address] Jun, [facility] [address] [id number] [address] [place] [address], [place] [address] Jun, [facility] [address] [id number] [address] [place] [address], [place] [address] Jun, [facility] [address] [id number] [address] [place] [address], [place] [address] Jun, [facility] [address] [id number] [address] [place] [address], [place] [address] Jun, [facility] [address] [id number] [address] [place] [address], [place] [address] Jun, [facility] [address] [id number] [address] [place] [address], [place] [address] Jun, [facility] [address] [id number] [address] [place] [address], [place] [address] Jun, [facility] [address] [id number] [address] [place] [address], [place] [address] May, [facility] [address] [id number] [address] [place] [address], [place] [address] May, [facility] [address] [id number] [address] [place] [address] May, [facility] [address] [id number] [address] [place] [address], [place] [address] May, [facility] [address] [id number] [address] [place] [address], [place] [address] May, [facility] [address] [id number] [address] [place] [address], [place] [address] May, [facility] [address] [id number] [address] [place] [address], [place] [address] May, 2011 [facility] [address] [id number] [address] [place] [address], [place] [address] May, [facility] [address] [id number] [address] [place] [address], [place] [address] Apr, [facility] [address] [id number] [address] [place] [address], [place] [address] 30 Apr, 2012 [facility] [address] [id number] [address] [place] [address], [place] [address] 29 Apr, 2012 [facility] [address] [id number] [address] [place] [address], [place] [address] Apr, [facility] [address] [id number] [address] [place] [address], [place] [address] Apr, [facility] [address] [id number] [address] [place] [address], [place] [address] Apr, [facility] [address] [id number] [address] [place] [address], [place] [address] Apr, [facility] [address] [id number] [address] [place] [address], [place] [address] Apr, [facility] [address] [id number] [address] [place] [address], [place] [address] Apr, [facility] [address] [id number] [address] [place] [address], [place] [address] 08 Apr, 2012 [facility] [address] [id number] [address] [place] [address], [place] [address] 04 Apr, 2012 [facility] [address] [id number] [address] [place] [address], [place] [address] Apr, [facility] [address] [id number] [address] [place] [address], [place] [address] 19 Mar, 2012 [facility] [address] [id number] [address] [place] [address], [place] [address] 18 Mar, 2012 [facility] [address] [id number] [address] [place] [address], [place] [address] 12 Mar, 2012 [facility] [address] [id number] [address] [place] [address], [place] [address] Mar, [facility] [address] [id number] [address] [place] [id number] Mar, [facility] [address] [id number] [address] [place] [address], [place] [id number] Mar, [facility] [address] [id number] [address] [place] [address], [place] [address] Mar, [facility] [address] [id number] [address] [place] [address], [place] [address] Jan, [facility] [address] [id number] [address] [place] [address], [place] [id number] Jan, [facility] [address] [id number] [address] [place] [id number] Jan, [facility] [address] [id number] [address] [place] [id number] Jan, [facility] [address] [id number] [address] [place] [address], [place] [address] Jan, [facility] [address] [id number] [address] [place] [address], [place] [address] Jan, [facility] [address] [id number] [address] [place] [id number] Jan, [facility] [address] [id number] [address] [place] [address], [place] [address] 14 Feb, 2012 [facility] [address] [id number] [address] [place] [address], [place] [address] Jan, [facility] [address] [id number] [address] [place] [address], [place] [address] Jan, [facility] [address] [id number] [address] [place] [address], [place] [address] Jan, [facility] [address] [id number] [address] [place] [address], [place] [address] Dec, [facility] [address] [id number] [address] [place] [address], [place] [address] Dec, [facility] [address] [id number] [address] [place] [address], [place] [address] Dec, [facility] [address] [id number] [address] [place] [address], [place] [address] Dec, [facility] [address] [id number] [address] [place] [address], [place] [address] Dec, [facility] [address] [id number] [address] [place] [address], [place] [address] Dec, [facility] [address] [id number] [address] [place] [address], [place] [address] Dec, [facility] [address] [id number] [address] [place] [address], [place] [address] 17 Jan, 2012 [facility] [address] [id number] [address] [place] [address], [place] [address] 16 Jan, 2012 [facility] [address] [id number] [address] [place] [address], [place] [address] Dec, [facility] [address] [id number] [address] [place] [address], [place] [address] Dec, [facility] [address] [id number] [address] [place] [address], [place] [address] Dec, [facility] [address] [id number] [address] [place] [address], [place] [address] Dec, [facility] [address] [id number] [address] [place] [address], [place] [address] Dec, [facility] [address] [id number] [address] [place] [address], [place] [address] Dec, [facility] [address] [id number] [address] [place] [address], [place] [address] 18 Dec, 2011 [facility] [address] [id number] [address] [place] [address], [place] [address] 15 Dec, 2011 [facility] [address] [id number] [address] [place] [address], [place] [address] 06 Dec, 2011 [facility] [address] [id number] [address] [place] [address], [place] [address] 05 Dec, 2011 [facility] [address] [id number] [address] [place] [address], [place] [address] October, [facility] [address] [id number] [address] [place] [address], [place] [address] October, [facility] [address] [id number] [address] [place] [address], [place] [address] October, [facility] [address] [id number] [address] [place] [address], [place] [address] October, [facility] [address] [id number] [address] [place] [address], [place] [address] October, [facility] [address] [id number] [address] [place] [address], [place] [address] October, [facility] [address] [id number] [address] [place] [address], [place] [address] Oct, [facility] [address] [id number] [address] [place] [address], [place] [address] 24 Oct, 2011 [facility] [address] [id number] [address] [place] [address], [place] [address] Oct, [facility] [address] [id number] [address] [place] [address], [place] [address] Oct, [facility] [address] [id number] [address] [place] [address], [place] [address] Oct, [facility] [address] [id number] [address] [place] [address], [place] [address] Oct, [facility] [address] [id number] [address] [place] [address], [place] [address] Oct, [facility] [address] [id number] [address] [place] [address], [place] [address] 29 Sep, 2011 [facility] [address] [id number] [address] [place] [address], [place] [address] 29 Sep, 2011 [facility] [address] [id number] [address] [place] [address], [place] [address] Aug, [facility] [address] [id number] [address] [place] [address], [place] [address] Aug, [facility] [address] [id number] [address] [place] [address], [place] [address] 05 Sep, 2011 [facility] [address] [id number] [address] [place] [address], [place] [address] Aug, [facility] [address] [id number] [address] [place] [address], [place] [address] Aug, [facility] [address] [id number] [address] [place] [address], [place] [address] Aug, [facility] [address] [id number] [address] [place] [address], [place] [address] Aug, [facility] [address] [id number] [address] [place] [address], [place] [address] Jul, [facility] [address] [id number] [address] [place] [address], [place] [address] Jul, [facility] [address] [id number] [address] [place] [address], [place] [address] Jul, [facility] [address] [id number] [address] [place] [address], [place] [address] Jul, [facility] [address] [id number] [address] [place] [address], [place] [address] Jun, [facility] [address] [id number] [address] [place] [address], [place] [address] Jun, [facility] [address] [id number] [address] [place] [address], [place] [address] May, [facility] [address] [id number] [address] [place] [address], [place] [address] May, [facility] [address] [id number] [address] [place] [address], [place] [address] May, [facility] [address] [id number] [address] [place] [address], [place] [address] May, [facility] [address] [id number] [address] [place] [address], [place] [address] May, [facility] [address] [id number] [address] [place] [address], [place] [address] Apr, [facility] [address] [id number] [address] [place] [address], [place] [address] Apr, [facility] [address] [id number] [address] [place] [address], [place] [address] Apr, [facility] [address] [id number] [address] [place] [address], [place] [address] 15 Jan, 2011 [facility] [address] [id number] [address] [place] [address], [place] [address] Dec, [facility] [address] [id number] [address] [place] [address], [place] [address] October, [facility] [address] [id number] [address] [place] [address], [place] [address] Jun, [facility] [address] [id number] [address] [place] [address], [place] [address] 23 Apr, 2009 [facility] [address] [id number] [address] [place] [address], [place] [address] 13 Apr, 2009 [facility] [address] [id number] [address] [place] [address], [place] [address] Apr, [facility] [address] [id number] [address] [place] [address] Jun, IMMUNIZATIONS No Known Immunizations SOCIAL HISTORY [...]
--- OUTSIDE RECORDS SUMMARY | 2020-01-25 12:42 | XMS REPORT ---
Author Author Ana MCDONALD Organization [facility] Address [address] [place] [address] Care Team Providers Care Ladle Watcher Name Role Phone CHAZ MCDONALD Unavailable PROBLEMS Type Condition ICD9-CM Code GCZ69-BU Code Onset Dates Condition S tatus SNOMED Code Problem Attention deficit R41.840 Active 76 918499 Problem Chronic hepatitis C without hepatic coma B18.2 Active 454141414 Problem Cannabis abuse F12.10 Active 82283 009 Problem Bipolar disorder, in partial remission, most rec ent episode hypomanic F31.71 Active 693904099 Problem Attention deficit hyperactivity disorder (ADHD), combi luciano type F90.2 Active 08792214 Problem Bipolar 1 disorder F31.9 Active 3 23484942 Problem H/O laminectomy Z98.89 Active 1616 76459 Problem Other chronic pain G89.29 Active 8 9533474 Problem Anxiety disorder, unspecified type F41.9 Active [id number] ALLERGIES No Information ENCOUNTERS Encounter Location Date Diagnosis [facility] [address] [facility] [id number] [address] [place] [phone] Dec, [facility] [address] [facility] [id number] [address] [place] [address] Dec, Other chronic pain G89.29 an d Low back pain M54.5 [facility] [address] [facility] [id number] [address] [place] [phone] October, [facility] [address] [facility] [id number] [address] [place] [phone] October, [facility] [address] [facility] [id number] [address] [place] [address] October, [facility] [address] [facility] [id number] [address] [place] [address] October, Other chronic pain G89.29 an d Chronic hepatitis C without hepatic coma B18.2 [facility] [address] [id number] [address] [place] [address] Aug, Bipolar disorder, in partial remission, most recent episode hypomanic F31.71 ; Attention deficit hyperactivity disorder (ADHD), combined type F90.2 and Anxiety disorder, unspecified type F41.9 [facility] [address] [id number] [address] [place] [address] Aug, [facility] [address] [id number] [address] [place] [address] Aug, Bipolar disorder, in partial remission, most recent episode hypomanic F31.71 [facility] [address] [id number] [address] [place] [address] Aug, [facility] [address] [id number] [address] [place] [address] Aug, Bipolar disorder, in partial remission, most recent episode hypomanic F31.71 [facility] [address] [id number] [address] [place] [address] Aug, Bipolar disorder, in partial remission, most recent episode hypomanic F31.71 ; Attention deficit hyperactivity disorder (ADHD), combined type F90.2 and Anxiety disorder, unspecified type F41.9 [facility] [address] [id number] [address] [place] [address] Aug, Low back pain M54.5 and Pain in left wrist M25.532 [facility] [address] [id number] [address] [place] [address] Aug, [facility] [address] [facility] [id number] [address] [place] [address] Jun, [facility] [address] [id number] [address] [place] [address] Apr, Bipolar disorder, in partial remission, most recent episode hypomanic F31.71 [facility] [address] [facility] [id number] [address] [place] [address] Apr, [facility] [address] [facility] [id number] [address] [place] [address] Apr, Bipolar disorder, in partial remission, most recent episode hypomanic F31.71 ; Attention deficit hyperactivity disorder (ADHD), combined type F90.2 ; Anxiety disorder, unspecified type F41.9 and 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 [facility] [address] [facility] [id number] [address] [place] [address] Apr, Bipolar disorder, in partial remission, most recent episode hypomanic F31.71 [facility] [address] [facility] [id number] [address] [place] [id number] Apr, Bipolar disorder, in partial remission, most recent episode hypomanic F31.71 [facility] [address] [facility] [id number] [address] [place] [phone] Mar, [facility] [address] [facility] [id number] [address] [place] [address] Mar, Bipolar disorder, in partial remission, most recent episode hypomanic F31.71 ; Encounter for immunization Z23 and Low back pain M54.5 [facility] [address] [facility] [id number] [address] [place] [address] Mar, Bipolar disorder, in partial remission, most recent episode hypomanic F31.71 [facility] [address] [facility] [id number] [address] [place] [address] Mar, Bipolar disorder, in partial remission, most recent episode hypomanic F31.71 [facility] [address] [facility] [id number] [address] [place] [address] Jan, Bipolar disorder, in partial remission, most recent episode hypomanic F31.71 [facility] [address] [facility] [id number] [address] [place] [address] Jan, Bipolar disorder, in partial remission, most recent episode hypomanic F31.71 [place] [id number] [id number] [address] [place] [id number] Dec, Bipolar disorder, in partial remission, most recent episode hypomanic F31.71 [facility] [address] [id number] [address] [place] [address] Dec, Bipolar disorder, in partial remission, most recent episode hypomanic F31.71 ; Attention deficit hyperactivity disorder (ADHD), combined type F90.2 ; Anxiety disorder, unspecified type F41.9 and Other residential (current) 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 Z79.899 [facility] [address] [id number] [address] [place] [id number] Dec, Bipolar disorder, in partial remission, most recent episode hypomanic F31.71 [facility] [address] [id number] [address] [place] [address] Dec, Bipolar disorder, in partial remission, most recent episode hypomanic F31.71 [facility] [address] [id number] [address] [place] [address] October, Bipolar disorder, in partial remission, most recent episode hypomanic F31.71 [facility] [address] [id number] [address] [place] [id number] October, [facility] [address] [id number] [address] [place] [address] October, [facility] [address] [id number] [address] [place] [address] Oct, Bipolar disorder, in partial remission, most recent episode hypomanic F31.71 ; Attention deficit hyperactivity disorder (ADHD), combined type F90.2 ; Anxiety disorder, unspecified type F41.9 and Encounter for drug screening Z02.83 [facility] [address] [id number] [address] [place] [address] Oct, Bipolar disorder, in partial remission, most recent episode hypomanic F31.71 [facility] [address] [facility] [id number] [address] [place] [address] Oct, Bipolar disorder, in partial remission, most recent episode hypomanic F31.71 [facility] [address] [id number] [address] [place] [id number] Aug, Bipolar disorder, in partial remission, most recent episode hypomanic F31.71 [facility] [address] [facility] [id number] [address] [place] [address] Aug, Bipolar disorder, in partial remission, most recent episode hypomanic F31.71 [facility] [address] [facility] [id number] [address] [place] [phone] Aug, Bipolar disorder, in partial remission, most recent episode hypomanic F31.71 [facility] [address] [facility] [id number] [address] [place] [id number] Jul, Bipolar disorder, in partial remission, most recent episode hypomanic F31.71 ; Attention deficit hyperactivity disorder (ADHD), combined type F90.2 and Anxiety disorder, unspecified type F41.9 [facility] [address] [facility] [id number] [address] [place] [id number] Jul, Bipolar disorder, in partial remission, most recent episode hypomanic F31.71 [facility] [address] [facility] [id number] [address] [place] [address] Jun, Bipolar disorder, in partial remission, most recent episode hypomanic F31.71 [facility] [address] [facility] [id number] [address] [place] [phone] May, Bipolar disorder, in partial remission, most recent episode hypomanic F31.71 [facility] [address] [facility] [id number] [address] [place] [phone] May, Bipolar disorder, in partial remission, most recent episode hypomanic F31.71 [facility] [address] [facility] [id number] [address] [place] [phone] Apr, [facility] [address] [facility] [id number] [address] [place] [address] Apr, Bipolar disorder, in partial remission, most recent episode hypomanic F31.71 ; Attention deficit hyperactivity disorder (ADHD), combined type F90.2 ; Anxiety disorder, unspecified type F41.9 and Cannabis abuse F12.10 [facility] [address] [id number] [address] [place] [id number] 13 Apr, 2017 Attention deficit hyperactiv ity disorder (ADHD), combined type F90.2 [facility] [address] [id number] [address] [place] [phone] Mar, Attention deficit hyperactiv ity disorder (ADHD), combined type F90.2 [facility] [address] [id number] [address] [place] [id number] 14 Mar, 2017 Anxiety disorder, unspecifie d type F41.9 [facility] [address] [id number] [address] [place] [id number] Jan, Attention deficit hyperactiv ity disorder (ADHD), combined type F90.2 [facility] [address] [facility] [id number] [address] [place] [id number] Jan, Anxiety disorder, unspecifie d type F41.9 [facility] [address] [facility] [id number] [address] [place] [address] Jan, Other chronic pain G89.29 ; Chronic hepatitis C without hepatic coma B18.2 and Bipolar 1 disorder F31.9 [facility] [address] [id number] [address] [place] [id number] Dec, Attention deficit hyperactiv ity disorder (ADHD), combined type F90.2 [facility] [address] [id number] [address] [place] [address] Dec, Bipolar disorder, in partial remission, most recent episode hypomanic F31.71 ; Attention deficit hyperactivity disorder (ADHD), combined type F90.2 and Anxiety disorder, unspecified type F41.9 [facility] [address] [id number] [address] [place] [address] Dec, Bipolar disorder, in partial remission, most recent episode hypomanic F31.71 ; Attention deficit hyperactivity disorder (ADHD), combined type F90.2 and Anxiety disorder, unspecified type F41.9 [facility] [address] [id number] [address] [place] [address] Dec, Bipolar 1 disorder F31.9 and Attention deficit R41.840 [facility] [address] [id number] [address] [place] [address] Oct, Other chronic pain G89.29 ; Alopecia L65.9 and Screening, lipid Z13.220 [facility] [address] [id number] [address] [place] [phone] Oct, [facility] [address] [id number] [address] [place] [id number] Aug, [facility] [address] [facility] [id number] [address] [place] [address] Aug, Eustachian tube dysfunction, right H69.81 ; Vertigo R42 and Other chronic pain G89.29 [facility] [address] [id number] [address] [place] [id number] Aug, [facility] [address] [id number] [address] [place] [phone] Jun, [facility] [address] [id number] [address] [place] [phone] Jun, Low back pain M54.5 and Othe r chronic pain G89.29 [facility] [address] [id number] [address] [place] [phone] Jun, [facility] [address] [id number] [address] [place] [phone] May, [facility] [address] [id number] [address] [place] [phone] Jan, [facility] [address] [id number] [address] [place] [phone] Dec, [facility] [address] [id number] [address] [place] [phone] Dec, [facility] [address] [facility] [id number] [address] [place] [id number] Jun, [facility] [address] [facility] [id number] [address] [place] [phone] Apr, Eustachian tube dysfunction, unspecified laterality H69.80 ; Hot flashes N95.1 and Encounter for immunization Z23 [facility] [address] [id number] [address] [place] [phone] Jan, [facility] [address] [facility] [id number] [address] [place] [id number] Jan, [facility] [address] [facility] [id number] [address] [place] [phone] Jan, [facility] [address] [facility] [id number] [address] [place] [phone] Jan, [facility] [address] [facility] [id number] [address] [place] [address] Jan, Encounter to establish care V65.8 ; Bipolar 1 disorder 296.7 ; Abdominal pain 789.00 ; Constipation 564.00 ; Hard of hearing 389.9 and Drug abuse 305.90 [facility] [address] [facility] [id number] [address] [place] [address] Dec, [facility] [address] [facility] [id number] [address] [place] [id number] October, [facility] [address] [facility] [id number] [address] [place] [phone] October, [facility] [address] [facility] [id number] [address] [place] [id number] Oct, [facility] [address] [facility] [id number] [address] [place] [phone] Oct, [facility] [address] [facility] [id number] [address] [place] [id number] Oct, [facility] [address] [id number] [address] [place] [address], [place] [address] Aug, [facility] [address] [id number] [address] [place] [address], [place] [address] Aug, 2014 [facility] [address] [id number] [address] [place] [address], [place] [address] Aug, [facility] [address] [id number] [address] [place] [address], [place] [address] Aug, 2014 [facility] [address] [id number] [address] [place] [address], [place] [address] Aug, 2014 [facility] [address] [id number] [address] [place] [address], [place] [address] Aug, 2014 [facility] [address] [id number] [address] [place] [address], [place] [address] Aug, 2014 [facility] [address] [id number] [address] [place] [address], [place] [address] Aug, 2014 [facility] [address] [id number] [address] [place] [address], [place] [address] Aug, 2014 [facility] [address] [id number] [address] [place] [phone] Aug, 2014 [facility] [address] [id number] [address] [place] [address], [place] [address] Aug, 2014 [facility] [address] [id number] [address] [place] [phone] Aug, 2014 [facility] [address] [id number] [address] [place] [address], [place] [address] Aug, 2014 [facility] [address] [id number] [address] [place] [phone] Aug, 2014 [facility] [address] [id number] [address] [place] [address], [place] [address] Aug, [facility] [address] [id number] [address] [place] [address], [place] [address] Jul, [facility] [address] [id number] [address] [place] [address], [place] [address] Jul, [facility] [address] [id number] [address] [place] [address], [place] [address] Jul, [facility] [address] [id number] [address] [place] [address], [place] [address] Jul, [facility] [address] [id number] [address] [place] [address], [place] [address] Jul, [facility] [address] [id number] [address] [place] [address], [place] [address] Jul, [facility] [address] [id number] [address] [place] [address], [place] [address] Jul, [facility] [address] [id number] [address] [place] [address], [place] [address] Jul, [facility] [address] [id number] [address] [place] [address], [place] [address] Jun, [facility] [address] [id number] [address] [place] [address], [place] [address] Jun, [facility] [address] [id number] [address] [place] [address], [place] [address] Jun, [facility] [address] [id number] [address] [place] [address], [place] [address] Jun, [facility] [address] [id number] [address] [place] [address], [place] [address] 18 Jun, 2014 [facility] [address] [id number] [address] [place] [address], [place] [address] 15 Jun, 2014 [facility] [address] [id number] [address] [place] [address], [place] [address] Jun, [facility] [address] [id number] [address] [place] [address], [place] [address] Jun, [facility] [address] [id number] [address] [place] [address], [place] [address] Jun, [facility] [address] [id number] [address] [place] [address], [place] [address] Jun, [facility] [address] [id number] [address] [place] [address], [place] [address] Jun, [facility] [address] [id number] [address] [place] [address], [place] [address] May, [facility] [address] [id number] [address] [place] [address], [place] [address] May, [facility] [address] [id number] [address] [place] [address], [place] [address] May, [facility] [address] [id number] [address] [place] [address], [place] [address] May, [facility] [address] [id number] [address] [place] [address], [place] [address] May, [facility] [address] [id number] [address] [place] [address], [place] [address] May, [facility] [address] [id number] [address] [place] [address], [place] [address] May, [facility] [address] [id number] [address] [place] [address], [place] [address] Apr, [facility] [address] [id number] [address] [place] [address], [place] [address] Apr, [facility] [address] [id number] [address] [place] [address], [place] [address] Apr, [facility] [address] [id number] [address] [place] [address], [place] [address] Apr, [facility] [address] [id number] [address] [place] [address], [place] [address] Apr, [facility] [address] [id number] [facility] [place] [address] Apr, [facility] [address] [id number] [facility] [place] [address] Mar, [facility] [address] [id number] [address] [place] [address], [place] [address] Mar, [facility] [address] [id number] [address] [place] [address], [place] [address] Mar, [facility] [address] [id number] [address] [place] [address], [place] [address] Mar, [facility] [address] [id number] [address] [place] [address], [place] [address] Mar, [facility] [address] [id number] [address] [place] [address], [place] [address] Mar, [facility] [address] [id number] [address] [place] [address], [place] [address] Jan, [facility] [address] [id number] [address] [place] [address], [place] [address] Jan, [facility] [address] [id number] [address] [place] [address], [place] [address] Jan, [facility] [address] [id number] [address] [place] [address], [place] [address] Jan, [facility] [address] [id number] [address] [place] [address], [place] [address] Dec, [facility] [address] [id number] [address] [place] [address], [place] [address] Dec, [facility] [address] [id number] [address] [place] [address], [place] [address] Dec, [facility] [address] [id number] [address] [place] [address], [place] [address] Dec, [facility] [address] [id number] [address] [place] [address], [place] [address] Dec, [facility] [address] [id number] [address] [place] [address], [place] [address] Dec, [facility] [address] [id number] [address] [place] [address], [place] [address] Dec, [facility] [address] [id number] [address] [place] [address], [place] [address] Dec, [facility] [address] [id number] [address] [place] [address], [place] [address] Dec, [facility] [address] [id number] [address] [place] [address], [place] [address] Dec, [facility] [address] [id number] [address] [place] [address], [place] [address] Dec, [facility] [address] [id number] [address] [place] [address], [place] [id number] Dec, [facility] [address] [id number] [address] [place] [address], [place] [address] October, [facility] [address] [id number] [address] [place] [address], [place] [address] October, [facility] [address] [id number] [address] [place] [address], [place] [address] October, [facility] [address] [id number] [address] [place] [address], [place] [address] October, [facility] [address] [id number] [address] [place] [address], [place] [address] October, [facility] [address] [id number] [address] [place] [address], [place] [address] October, [facility] [address] [id number] [address] [place] [address], [place] [address] Oct, [facility] [address] [id number] [address] [place] [address], [place] [address] Oct, [facility] [address] [id number] [facility] [place] [address] Oct, [facility] [address] [id number] [address] [place] [address], [place] [address] Oct, [facility] [address] [id number] [address] [place] [address], [place] [id number] Oct, [facility] [address] [id number] [address] [place] [address], [place] [id number] Oct, [facility] [address] [id number] [address] [place] [address], [place] [address] Oct, [facility] [address] [id number] [address] [place] [address], [place] [address] Oct, [facility] [address] [id number] [address] [place] [address], [place] [address] Oct, [facility] [address] [id number] [address] [place] [address], [place] [address] Oct, [facility] [address] [id number] [address] [place] [address], [place] [address] Oct, [facility] [address] [id number] [address] [place] [address], [place] [id number] Oct, [facility] [facility] [address] [id number] [address] [place] [address], [place] [address] Aug, [facility] [address] [id number] [address] [place] [address], [place] [address] Aug, [facility] [address] [id number] [address] [place] [address], [place] [address] Aug, [facility] [address] [id number] [address] [place] [address], [place] [address] Aug, [facility] [address] [id number] [address] [place] [address], [place] [address] 05 Aug, 2013 [facility] [address] [id number] [address] [place] [address], [place] [address] 05 Aug, 2013 [facility] [address] [id number] [facility] [place] [address] 04 Aug, 2013 [facility] [address] [id number] [address] [place] [address], [place] [address] Aug, [facility] [address] [id number] [facility] [place] [address] Aug, [facility] [address] [id number] [address] [place] [address], [place] [address] 24 Aug, 2013 [facility] [address] [id number] [address] [place] [address], [place] [address] 24 Aug, 2013 [facility] [address] [id number] [address] [place] [address], [place] [address] Aug, [facility] [address] [id number] [address] [place] [address], [place] [address] Aug, [facility] [address] [id number] [address] [place] [address], [place] [address] 20 Aug, 2013 [facility] [address] [id number] [address] [place] [address], [place] [address] 14 Aug, 2013 [facility] [address] [id number] [address] [place] [address], [place] [address] 14 Aug, 2013 [facility] [address] [id number] [address] [place] [address], [place] [address] 14 Aug, 2013 [facility] [address] [id number] [address] [place] [address], [place] [address] 14 Aug, 2013 [facility] [address] [id number] [address] [place] [address], [place] [address] 07 Aug, 2013 [facility] [address] [id number] [address] [place] [address], [place] [address] 07 Aug, 2013 [facility] [address] [id number] [address] [place] [address], [place] [address] 06 Aug, 2013 [facility] [address] [id number] [address] [place] [address], [place] [address] 06 Aug, 2013 [facility] [address] [id number] [address] [place] [address], [place] [address] Aug, [facility] [address] [id number] [address] [place] [address], [place] [address] Aug, [facility] [address] [id number] [address] [place] [address], [place] [address] Aug, [facility] [address] [id number] [address] [place] [address], [place] [address] Jul, [facility] [address] [id number] [address] [place] [address], [place] [address] Jul, [facility] [address] [id number] [address] [place] [address], [place] [address] Jul, [facility] [address] [id number] [address] [place] [address], [place] [address] Jul, [facility] [address] [id number] [address] [place] [address], [place] [address] Jul, [facility] [address] [id number] [address] [place] [address], [place] [address] Jul, [facility] [address] [id number] [address] [place] [address], [place] [address] Jul, [facility] [address] [id number] [address] [place] [address], [place] [address] Jul, [facility] [address] [id number] [address] [place] [address], [place] [address] Jul, [facility] [address] [id number] [address] [place] [address], [place] [address] Jul, [facility] [address] [id number] [address] [place] [address], [place] [address] Jul, [facility] [address] [id number] [address] [place] [address], [place] [address] 15 Jul, 2013 [facility] [address] [id number] [address] [place] [address], [place] [address] Jul, [facility] [address] [id number] [address] [place] [address], [place] [address] Jul, [facility] [address] [id number] [address] [place] [address], [place] [address] Jul, [facility] [address] [id number] [address] [place] [address], [place] [address] Jul, [facility] [address] [id number] [address] [place] [address], [place] [address] Jul, [facility] [address] [id number] [address] [place] [address], [place] [address] Jul, [facility] [address] [id number] [address] [place] [address], [place] [address] Jul, [facility] [address] [id number] [address] [place] [address], [place] [address] Jul, [facility] [address] [id number] [address] [place] [address], [place] [address] Jun, [facility] [address] [id number] [address] [place] [address], [place] [address] Jun, [facility] [address] [id number] [address] [place] [address], [place] [address] Jun, [facility] [address] [id number] [address] [place] [address], [place] [address] 30 Jun, 2013 [facility] [address] [id number] [address] [place] [address], [place] [address] Jun, [facility] [address] [id number] [address] [place] [address], [place] [address] Jun, [facility] [address] [id number] [address] [place] [address], [place] [address] Jun, [facility] [address] [id number] [address] [place] [address], [place] [address] 26 Jun, 2013 [facility] [address] [id number] [address] [place] [address], [place] [address] 24 Jun, 2013 [facility] [address] [id number] [address] [place] [address], [place] [address] Jun, [facility] [address] [id number] [address] [place] [address], [place] [address] Jun, [facility] [address] [id number] [address] [place] [address], [place] [address] Jun, [facility] [address] [id number] [address] [place] [address], [place] [address] Jun, [facility] [address] [id number] [address] [place] [address], [place] [address] Jun, [facility] [address] [id number] [address] [place] [address], [place] [address] Jun, [facility] [address] [id number] [address] [place] [address], [place] [address] 18 Jun, 2013 [facility] [address] [id number] [address] [place] [address], [place] [address] 18 Jun, 2013 [facility] [address] [id number] [address] [place] [address], [place] [address] 17 Jun, 2013 [facility] [address] [id number] [address] [place] [address], [place] [address] 17 Jun, 2013 [facility] [address] [id number] [address] [place] [address], [place] [address] 13 Jun, 2013 [facility] [address] [id number] [address] [place] [address], [place] [address] 12 Jun, 2013 [facility] [address] [id number] [address] [place] [address], [place] [address] 12 Jun, 2013 [facility] [address] [id number] [address] [place] [address], [place] [address] Jun, [facility] [address] [id number] [address] [place] [address], [place] [address] Jun, [facility] [address] [id number] [address] [place] [address], [place] [address] Jun, [facility] [address] [id number] [address] [place] [address], [place] [address] Jun, [facility] [address] [id number] [address] [place] [address], [place] [address] Jun, [facility] [address] [id number] [address] [place] [address], [place] [address] May, [facility] [address] [id number] [address] [place] [address], [place] [address] May, [facility] [address] [id number] [address] [place] [address], [place] [address] May, [facility] [address] [id number] [address] [place] [address] May, [facility] [address] [id number] [address] [place] [address], [place] [address] May, [facility] [address] [id number] [address] [place] [address] May, [facility] [address] [id number] [address] [place] [address] Apr, [facility] [address] [id number] [address] [place] [address] Apr, [facility] [address] [id number] [address] [place] [address], [place] [address] Apr, [facility] [address] [id number] [address] [place] [address] Apr, [facility] [address] [id number] [address] [place] [address] Apr, [facility] [address] [id number] [address] [place] [address] 15 Apr, 2013 [facility] [address] [id number] [address] [place] [address], [place] [address] 15 Apr, 2013 [facility] [address] [id number] [address] [place] [address], [place] [address] Apr, [facility] [address] [id number] [address] [place] [address], [place] [address] 26 Mar, 2013 [facility] [address] [id number] [address] [place] [address], [place] [address] 24 Mar, 2012 [facility] [address] [id number] [address] [place] [address], [place] [address] 17 Mar, 2013 [facility] [address] [id number] [address] [place] [address], [place] [address] 17 Mar, 2013 [facility] [address] [id number] [address] [place] [address], [place] [address] 11 Mar, 2013 [facility] [address] [id number] [address] [place] [address], [place] [address] 10 Mar, 2013 [facility] [address] [id number] [address] [place] [address], [place] [address] 05 Mar, 2013 [facility] [address] [id number] [address] [place] [address], [place] [address] 04 Mar, 2013 [facility] [address] [id number] [address] [place] [address], [place] [address] 20 Jan, 2013 [facility] [address] [id number] [address] [place] [address], [place] [address] Jan, [facility] [address] [id number] [address] [place] [address], [place] [address] 14 Jan, 2013 [facility] [address] [id number] [address] [place] [address], [place] [address] 12 Jan, 2013 [facility] [address] [id number] [address] [place] [address], [place] [address] 07 Jan, 2013 [facility] [address] [id number] [address] [place] [address], [place] [address] 05 Jan, 2013 [facility] [address] [id number] [address] [place] [address], [place] [address] 31 Dec, 2012 [facility] [address] [id number] [address] [place] [address], [place] [address] 24 Dec, 2012 [facility] [address] [id number] [address] [place] [address], [place] [address] Dec, [facility] [address] [id number] [address] [place] [address], [place] [address] Dec, [facility] [address] [id number] [address] [place] [address], [place] [address] 18 Dec, 2012 [facility] [address] [id number] [address] [place] [address], [place] [address] 17 Dec, 2012 [facility] [address] [id number] [address] [place] [address], [place] [address] 16 Dec, 2012 [facility] [address] [id number] [address] [place] [address], [place] [address] 16 Dec, 2012 [facility] [address] [id number] [address] [place] [address], [place] [address] 15 Dec, 2012 [facility] [address] [id number] [address] [place] [address], [place] [address] Dec, [facility] [address] [id number] [address] [place] [address], [place] [address] Dec, [facility] [address] [id number] [address] [place] [address], [place] [address] Dec, [facility] [address] [id number] [address] [place] [address], [place] [address] Dec, [facility] [address] [id number] [address] [place] [address], [place] [address] 17 Dec, 2012 [facility] [address] [id number] [address] [place] [address], [place] [address] Dec, [facility] [address] [id number] [address] [place] [address], [place] [address] Dec, [facility] [address] [id number] [address] [place] [address], [place] [address] October, [facility] [address] [id number] [address] [place] [address], [place] [address] October, [facility] [address] [id number] [address] [place] [address], [place] [address] October, [facility] [address] [id number] [address] [place] [address], [place] [address] October, [facility] [address] [id number] [address] [place] [address], [place] [address] October, [facility] [address] [id number] [address] [place] [address], [place] [address] October, [facility] [address] [id number] [address] [place] [address], [place] [address] October, [facility] [address] [id number] [address] [place] [address], [place] [address] Oct, [facility] [address] [id number] [address] [place] [address], [place] [address] Oct, [facility] [address] [id number] [address] [place] [address], [place] [address] Oct, [facility] [address] [id number] [address] [place] [address], [place] [address] Oct, [facility] [address] [id number] [address] [place] [address], [place] [address] Oct, [facility] [address] [id number] [address] [place] [address], [place] [address] 18 Oct, 2012 [facility] [address] [id number] [address] [place] [address], [place] [address] Oct, [facility] [address] [id number] [address] [place] [address], [place] [address] 15 Oct, 2012 [facility] [address] [id number] [address] [place] [address], [place] [address] 12 Oct, 2012 [facility] [address] [id number] [address] [place] [address], [place] [address] Oct, [facility] [address] [id number] [address] [place] [address], [place] [address] Oct, [facility] [address] [id number] [address] [place] [address], [place] [address] Oct, [facility] [address] [id number] [address] [place] [address], [place] [address] Aug, [facility] [address] [id number] [address] [place] [address], [place] [address] Aug, [facility] [address] [id number] [address] [place] [address], [place] [address] Aug, [facility] [address] [id number] [address] [place] [address], [place] [address] Aug, [facility] [address] [id number] [address] [place] [address], [place] [address] 05 Aug, 2012 [facility] [address] [id number] [address] [place] [address], [place] [address] 05 Aug, 2012 [facility] [address] [id number] [address] [place] [address], [place] [address] 20 Aug, 2012 [facility] [address] [id number] [address] [place] [address], [place] [address] 14 Aug, 2012 [facility] [address] [id number] [address] [place] [address], [place] [address] Aug, [facility] [address] [id number] [address] [place] [address], [place] [address] Aug, [facility] [address] [id number] [address] [place] [address], [place] [address] Jul, [facility] [address] [id number] [address] [place] [address], [place] [address] 15 Jul, 2012 [facility] [address] [id number] [address] [place] [address], [place] [address] 08 Jul, 2012 [facility] [address] [id number] [address] [place] [address], [place] [address] 20 Jun, 2012 [facility] [address] [id number] [address] [place] [address], [place] [address] 18 Jun, 2012 [facility] [address] [id number] [address] [place] [address], [place] [address] 18 Jun, 2012 [facility] [address] [id number] [address] [place] [address], [place] [address] 18 Jun, 2012 [facility] [address] [id number] [address] [place] [address], [place] [address] 18 Jun, 2012 [facility] [address] [id number] [address] [place] [address], [place] [address] 14 Jun, 2012 [facility] [address] [id number] [address] [place] [address], [place] [address] 14 Jun, 2012 [facility] [address] [id number] [address] [place] [address], [place] [address] 13 Jun, 2012 [facility] [address] [id number] [address] [place] [address], [place] [address] 13 Jun, 2012 [facility] [address] [id number] [address] [place] [address], [place] [address] 11 Jun, 2012 [facility] [address] [id number] [address] [place] [address], [place] [address] 11 Jun, 2012 [facility] [address] [id number] [address] [place] [address], [place] [address] 11 Jun, 2012 [facility] [address] [id number] [address] [place] [address], [place] [address] 11 Jun, 2012 [facility] [address] [id number] [address] [place] [address], [place] [id number] 07 Jun, 2012 [facility] [address] [id number] [address] [place] [address], [place] [address] Jun, [facility] [address] [id number] [address] [place] [address], [place] [address] Jun, [facility] [address] [id number] [address] [place] [address], [place] [address] Jun, [facility] [address] [id number] [address] [place] [address], [place] [address] Jun, [facility] [address] [id number] [address] [place] [address], [place] [address] Jun, [facility] [address] [id number] [address] [place] [address], [place] [address] Jun, [facility] [address] [id number] [address] [place] [address], [place] [address] Jun, [facility] [address] [id number] [address] [place] [address], [place] [address] Jun, [facility] [address] [id number] [address] [place] [address], [place] [address] Jun, [facility] [address] [id number] [address] [place] [address], [place] [address] May, [facility] [address] [id number] [address] [place] [address], [place] [address] May, [facility] [address] [id number] [address] [place] [id number] May, [facility] [address] [id number] [address] [place] [address], [place] [address] May, [facility] [address] [id number] [address] [place] [address], [place] [address] May, [facility] [address] [id number] [address] [place] [address], [place] [address] May, [facility] [address] [id number] [address] [place] [address], [place] [address] May, 2011 [facility] [address] [id number] [address] [place] [address], [place] [address] May, [facility] [address] [id number] [address] [place] [address], [place] [address] Apr, [facility] [address] [id number] [address] [place] [address], [place] [address] 30 Apr, 2012 [facility] [address] [id number] [address] [place] [address], [place] [address] 29 Apr, 2012 [facility] [address] [id number] [address] [place] [address], [place] [address] Apr, [facility] [address] [id number] [address] [place] [address], [place] [address] Apr, [facility] [address] [id number] [address] [place] [address], [place] [address] Apr, [facility] [address] [id number] [address] [place] [address], [place] [address] Apr, [facility] [address] [id number] [address] [place] [address], [place] [address] Apr, [facility] [address] [id number] [address] [place] [address], [place] [address] Apr, [facility] [address] [id number] [address] [place] [address], [place] [address] 08 Apr, 2012 [facility] [address] [id number] [address] [place] [address], [place] [address] 04 Apr, 2012 [facility] [address] [id number] [address] [place] [address], [place] [address] Apr, [facility] [address] [id number] [address] [place] [address], [place] [address] 19 Mar, 2012 [facility] [address] [id number] [address] [place] [address], [place] [address] 18 Mar, 2012 [facility] [address] [id number] [address] [place] [address], [place] [address] 12 Mar, 2012 [facility] [address] [id number] [address] [place] [address], [place] [address] Mar, [facility] [address] [id number] [address] [place] [id number] Mar, [facility] [address] [id number] [address] [place] [address], [place] [id number] Mar, [facility] [address] [id number] [address] [place] [address], [place] [address] Mar, [facility] [address] [id number] [address] [place] [address], [place] [address] Jan, [facility] [address] [id number] [address] [place] [address], [place] [address] Jan, [facility] [address] [id number] [address] [place] [id number] Jan, [facility] [address] [id number] [address] [place] [id number] Jan, [facility] [address] [id number] [address] [place] [address], [place] [address] Jan, [facility] [address] [id number] [address] [place] [address], [place] [address] Jan, [facility] [address] [id number] [address] [place] [id number] Jan, [facility] [address] [id number] [address] [place] [address], [place] [address] 14 Feb, 2012 [facility] [address] [id number] [address] [place] [address], [place] [address] Jan, [facility] [address] [id number] [address] [place] [address], [place] [address] Jan, [facility] [address] [id number] [address] [place] [address], [place] [address] Jan, [facility] [address] [id number] [address] [place] [address], [place] [address] Dec, [facility] [address] [id number] [address] [place] [address], [place] [address] Dec, [facility] [address] [id number] [address] [place] [address], [place] [address] Dec, [facility] [address] [id number] [address] [place] [address], [place] [id number] Dec, [facility] [address] [id number] [address] [place] [address], [place] [address] Dec, [facility] [address] [id number] [address] [place] [address], [place] [address] Dec, [facility] [address] [id number] [address] [place] [address], [place] [address] Dec, [facility] [address] [id number] [address] [place] [address], [place] [address] 17 Jan, 2012 [facility] [address] [id number] [address] [place] [address], [place] [address] 16 Jan, 2012 [facility] [address] [id number] [address] [place] [address], [place] [address] Dec, [facility] [address] [id number] [address] [place] [address], [place] [address] Dec, [facility] [address] [id number] [address] [place] [address], [place] [address] Dec, [facility] [address] [id number] [address] [place] [address], [place] [address] Dec, [facility] [address] [id number] [address] [place] [address], [place] [address] Dec, [facility] [address] [id number] [address] [place] [address], [place] [address] Dec, [facility] [address] [id number] [address] [place] [address], [place] [address] 18 Dec, 2011 [facility] [address] [id number] [address] [place] [address], [place] [address] 15 Dec, 2011 [facility] [address] [id number] [address] [place] [address], [place] [address] 06 Dec, 2011 [facility] [address] [id number] [address] [place] [address], [place] [address] 05 Dec, 2011 [facility] [address] [id number] [address] [place] [address], [place] [address] October, [facility] [address] [id number] [address] [place] [address], [place] [address] October, [facility] [address] [id number] [address] [place] [address], [place] [address] October, [facility] [address] [id number] [address] [place] [address], [place] [address] October, [facility] [address] [id number] [address] [place] [address], [place] [address] October, [facility] [address] [id number] [address] [place] [address], [place] [address] October, [facility] [address] [id number] [address] [place] [address], [place] [address] Oct, [facility] [address] [id number] [address] [place] [address], [place] [address] 24 Oct, 2011 [facility] [address] [id number] [address] [place] [address], [place] [address] Oct, [facility] [address] [id number] [address] [place] [address], [place] [address] Oct, [facility] [address] [id number] [address] [place] [address], [place] [address] Oct, [facility] [address] [id number] [address] [place] [address], [place] [address] Oct, [facility] [address] [id number] [address] [place] [address], [place] [address] Oct, [facility] [address] [id number] [address] [place] [address], [place] [address] 29 Sep, 2011 [facility] [address] [id number] [address] [place] [address], [place] [address] 29 Sep, 2011 [facility] [address] [id number] [address] [place] [address], [place] [address] Aug, [facility] [address] [id number] [address] [place] [address], [place] [address] Aug, [facility] [address] [id number] [address] [place] [address], [place] [address] 05 Sep, 2011 [facility] [address] [id number] [address] [place] [address], [place] [address] Aug, [facility] [address] [id number] [address] [place] [address], [place] [address] Aug, [facility] [address] [id number] [address] [place] [address], [place] [address] Aug, [facility] [address] [id number] [address] [place] [address], [place] [address] Aug, [facility] [address] [id number] [address] [place] [address], [place] [address] Jul, [facility] [address] [id number] [address] [place] [address], [place] [address] Jul, [facility] [address] [id number] [address] [place] [address], [place] [address] Jul, [facility] [address] [id number] [address] [place] [address], [place] [address] Jul, [facility] [address] [id number] [address] [place] [address], [place] [address] Jun, [facility] [address] [id number] [address] [place] [address], [place] [address] Jun, [facility] [address] [id number] [address] [place] [address], [place] [address] May, [facility] [address] [id number] [address] [place] [address], [place] [address] May, [facility] [address] [id number] [address] [place] [address], [place] [address] May, [facility] [address] [id number] [address] [place] [address], [place] [address] May, [facility] [address] [id number] [address] [place] [address], [place] [address] May, [facility] [address] [id number] [address] [place] [address], [place] [address] Apr, [facility] [address] [id number] [address] [place] [address], [place] [address] Apr, [facility] [address] [id number] [address] [place] [address], [place] [address] Apr, [facility] [address] [id number] [address] [place] [address], [place] [address] 15 Jan, 2011 [facility] [address] [id number] [address] [place] [address], [place] [address] Dec, [facility] [address] [id number] [address] [place] [address], [place] [address] October, [facility] [address] [id number] [address] [place] [address], [place] [address] Jun, [facility] [address] [id number] [address] [place] [address], [place] [address] 23 Apr, 2009 [facility] [address] [id number] [address] [place] [address], [place] [address] 13 Apr, 2009 [facility] [address] [id number] [address] [place] [address], [place] [address] Apr, [facility] [address] [facility] [id number] [address] [place] [address] Jun, IMMUNIZATIONS No Known Immunizations SOCIAL HISTORY [...]
--- OUTSIDE RECORDS SUMMARY | 2020-01-25 12:43 | XMS REPORT ---
Author Author FRANCINE Ana PUENTE [facility] Address [address] [place] [address] Care Team Providers Care Deployment Technician Name Role Phone ENA ESCAMILLAN Unavailable PROBLEMS Type Condition ICD9-CM Code IRA35-VP Code Onset Dates Condition S tatus SNOMED Code Problem Attention deficit R41.840 Active 76 585384 Problem Chronic hepatitis C without hepatic coma B18.2 Active 928961014 Problem Cannabis abuse F12.10 Active 66566 009 Problem Bipolar disorder, in partial remission, most rec ent episode hypomanic F31.71 Active 997258036 Problem Attention deficit hyperactivity disorder (ADHD), combi luciano type F90.2 Active 60463863 Problem Bipolar 1 disorder F31.9 Active 3 10889666 Problem H/O laminectomy Z98.89 Active 1616 28245 Problem Other chronic pain G89.29 Active 8 1074166 Problem Anxiety disorder, unspecified type F41.9 Active 329314730 ALLERGIES Substance Reaction Event Type Date Status Amitiza Unknown Non Drug Allergy Aug, Active Hydrocodone Failed UDS (opiates, & THC) Non Drug Allergy Aug, 019 Active Benzodiazepines Failed UDS (opiates, & THC) Non Drug Allergy Aug Active Zyprexa Unknown Drug Allergy Aug, Active ENCOUNTERS Encounter Location Date Diagnosis [facility] [address] [facility] [id number] [address] [place] [address] Dec, [facility] [address] [facility] [id number] [address] [place] [address] Dec, Other chronic pain G89.29 an d Low back pain M54.5 [facility] [address] [facility] [id number] [address] [place] [address] October, [facility] [address] [facility] [id number] [address] [place] [address] October, [facility] [address] [id number] [address] [place] [address] October, [facility] [address] [id number] [address] [place] [address] October, Other chronic pain G89.29 an d Chronic hepatitis C without hepatic coma B18.2 [facility] [address] [id number] [address] [place] [address] Aug, Bipolar disorder, in partial remission, most recent episode hypomanic F31.71 ; Attention deficit hyperactivity disorder (ADHD), combined type F90.2 and Anxiety disorder, unspecified type F41.9 [facility] [address] [id number] [address] [place] [address] Aug, [facility] [address] [id number] [address] [place] [address] Aug, Bipolar disorder, in partial remission, most recent episode hypomanic F31.71 [facility] [address] [id number] [address] [place] [address] Aug, [facility] [address] [id number] [address] [place] [address] Aug, Bipolar disorder, in partial remission, most recent episode hypomanic F31.71 [facility] [address] [id number] [address] [place] [address] Aug, Bipolar disorder, in partial remission, most recent episode hypomanic F31.71 ; Attention deficit hyperactivity disorder (ADHD), combined type F90.2 and Anxiety disorder, unspecified type F41.9 [facility] [address] [id number] [address] [place] [address] Aug, Low back pain M54.5 and Pain in left wrist M25.532 [facility] [address] [id number] [address] [place] [address] Aug, [facility] [address] [id number] [address] [place] [address] Jun, [facility] [address] [id number] [address] [place] [address] Apr, Bipolar disorder, in partial remission, most recent episode hypomanic F31.71 [facility] [address] [id number] [address] [place] [address] Apr, [facility] [address] [facility] [id number] [address] [place] [address] Apr, Bipolar disorder, in partial remission, most recent episode hypomanic F31.71 ; Attention deficit hyperactivity disorder (ADHD), combined type F90.2 ; Anxiety disorder, unspecified type F41.9 and Other shelter (current) 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 Z79.899 [facility] [address] [id number] [address] [place] [address] Apr, Bipolar disorder, in partial remission, most recent episode hypomanic F31.71 [facility] [address] [facility] [id number] [address] [place] [address] Apr, Bipolar disorder, in partial remission, most recent episode hypomanic F31.71 [facility] [address] [facility] [id number] [address] [place] [address] Mar, [facility] [address] [facility] [id number] [address] [place] [address] Mar, Bipolar disorder, in partial remission, most recent episode hypomanic F31.71 ; Encounter for immunization Z23 and Low back pain M54.5 [facility] [address] [id number] [address] [place] [address] 17 Mar, 2018 Bipolar disorder, in partial remission, most recent episode hypomanic F31.71 [facility] [address] [facility] [id number] [address] [place] [address] Mar, Bipolar disorder, in partial remission, most recent episode hypomanic F31.71 [facility] [address] [facility] [id number] [address] [place] [address] Jan, Bipolar disorder, in partial remission, most recent episode hypomanic F31.71 [facility] [address] [id number] [address] [place] [address] Jan, Bipolar disorder, in partial remission, most recent episode hypomanic F31.71 [facility] [address] [id number] [address] [place] [address] Dec, Bipolar disorder, in partial remission, most recent episode hypomanic F31.71 [facility] [address] [id number] [address] [place] [address] Dec, Bipolar disorder, in partial remission, most recent episode hypomanic F31.71 ; Attention deficit hyperactivity disorder (ADHD), combined type F90.2 ; Anxiety disorder, unspecified type F41.9 and Other shelter (current) 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 Z79.899 [facility] [address] [facility] [id number] [address] [place] [address] Dec, Bipolar disorder, in partial remission, most recent episode hypomanic F31.71 [facility] [address] [facility] [id number] [address] [place] [address] Dec, Bipolar disorder, in partial remission, most recent episode hypomanic F31.71 [facility] [address] [id number] [address] [place] [address] October, Bipolar disorder, in partial remission, most recent episode hypomanic F31.71 [facility] [address] [facility] [id number] [address] [place] [address] October, [facility] [address] [facility] [id number] [address] [place] [address] October, [facility] [address] [facility] [id number] [address] [place] [address] Oct, Bipolar disorder, in partial remission, most recent episode hypomanic F31.71 ; Attention deficit hyperactivity disorder (ADHD), combined type F90.2 ; Anxiety disorder, unspecified type F41.9 and Encounter for drug screening Z02.83 [facility] [address] [facility] [id number] [address] [place] [address] Oct, Bipolar disorder, in partial remission, most recent episode hypomanic F31.71 [facility] [address] [facility] [id number] [address] [place] [address] Oct, Bipolar disorder, in partial remission, most recent episode hypomanic F31.71 [facility] [address] [facility] [id number] [address] [place] [address] Aug, Bipolar disorder, in partial remission, most recent episode hypomanic F31.71 [facility] [address] [facility] [id number] [address] [place] [address] Aug, Bipolar disorder, in partial remission, most recent episode hypomanic F31.71 [facility] [address] [facility] [id number] [address] [place] [address] Aug, Bipolar disorder, in partial remission, most recent episode hypomanic F31.71 [facility] [address] [facility] [id number] [address] [place] [address] Jul, Bipolar disorder, in partial remission, most recent episode hypomanic F31.71 ; Attention deficit hyperactivity disorder (ADHD), combined type F90.2 and Anxiety disorder, unspecified type F41.9 [facility] [address] [facility] [id number] [address] [place] [address] Jul, Bipolar disorder, in partial remission, most recent episode hypomanic F31.71 [facility] [address] [facility] [id number] [address] [place] [address] Jun, Bipolar disorder, in partial remission, most recent episode hypomanic F31.71 [facility] [address] [facility] [id number] [address] [place] [address] May, Bipolar disorder, in partial remission, most recent episode hypomanic F31.71 [facility] [address] [facility] [id number] [address] [place] [address] May, Bipolar disorder, in partial remission, most recent episode hypomanic F31.71 [facility] [address] [facility] [id number] [address] [place] [address] Apr, [facility] [address] [facility] [id number] [address] [place] [address] Apr, Bipolar disorder, in partial remission, most recent episode hypomanic F31.71 ; Attention deficit hyperactivity disorder (ADHD), combined type F90.2 ; Anxiety disorder, unspecified type F41.9 and Cannabis abuse F12.10 [facility] [address] [facility] [id number] [address] [place] [address] Apr, Attention deficit hyperactiv ity disorder (ADHD), combined type F90.2 [facility] [address] [facility] [id number] [address] [place] [address] Mar, Attention deficit hyperactiv ity disorder (ADHD), combined type F90.2 [facility] [address] [facility] [id number] [address] [place] [address] Mar, Anxiety disorder, unspecifie d type F41.9 [facility] [address] [facility] [id number] [address] [place] [address] Jan, Attention deficit hyperactiv ity disorder (ADHD), combined type F90.2 [facility] [address] [facility] [id number] [address] [place] [address] Jan, Anxiety disorder, unspecifie d type F41.9 [facility] [address] [facility] [id number] [address] [place] [address] Jan, Other chronic pain G89.29 ; Chronic hepatitis C without hepatic coma B18.2 and Bipolar 1 disorder F31.9 [facility] [address] [facility] [id number] [address] [place] [address] Dec, Attention deficit hyperactiv ity disorder (ADHD), combined type F90.2 [facility] [address] [facility] [id number] [address] [place] [address] Dec, Bipolar disorder, in partial remission, most recent episode hypomanic F31.71 ; Attention deficit hyperactivity disorder (ADHD), combined type F90.2 and Anxiety disorder, unspecified type F41.9 [facility] [address] [facility] [id number] [address] [place] [address] Dec, Bipolar disorder, in partial remission, most recent episode hypomanic F31.71 ; Attention deficit hyperactivity disorder (ADHD), combined type F90.2 and Anxiety disorder, unspecified type F41.9 [facility] [address] [id number] [address] [place] [address] Dec, Bipolar 1 disorder F31.9 and Attention deficit R41.840 [place] [address] [facility] [id number] [address] [place] [address] Oct, Other chronic pain G89.29 ; Alopecia L65.9 and Screening, lipid Z13.220 [place] [address] [place] [id number] [address] [place] [address] Oct, [facility] [address] [facility] [id number] [address] [place] [address] Aug, [facility] [address] [facility] [id number] [address] [place] [address] Aug, Eustachian tube dysfunction, right H69.81 ; Vertigo R42 and Other chronic pain G89.29 [facility] [address] [facility] [id number] [address] [place] [address] Aug, [facility] [address] [facility] [id number] [address] [place] [address] Jun, [facility] [address] [id number] [address] [place] [address] Jun, Low back pain M54.5 and Othe r chronic pain G89.29 [facility] [address] [facility] [id number] [address] [place] [address] Jun, [facility] [address] [place] [id number] [address] [place] [address] May, [facility] [address] [facility] [id number] [address] [place] [address] Jan, [facility] [address] [facility] [id number] [address] [place] [address] Dec, [facility] [address] [facility] [id number] [address] [place] [address] Dec, [facility] [address] [facility] [id number] [address] [place] [address] Jun, [facility] [address] [facility] [id number] [address] [place] [address] Apr, Eustachian tube dysfunction, unspecified laterality H69.80 ; Hot flashes N95.1 and Encounter for immunization Z23 [facility] [address] [facility] [id number] [address] [place] [address] Jan, [facility] [address] [facility] [id number] [address] [place] [address] Jan, [facility] [address] [facility] [id number] [address] [place] [address] Jan, [facility] [address] [facility] [id number] [address] [place] [address] Jan, [facility] [address] [facility] [id number] [address] [place] [address] Jan, Encounter to establish care V65.8 ; Bipolar 1 disorder 296.7 ; Abdominal pain 789.00 ; Constipation 564.00 ; Hard of hearing 389.9 and Drug abuse 305.90 [facility] [address] [facility] [id number] [address] [place] [address] Dec, [facility] [address] [facility] [id number] [address] [place] [address] October, [facility] [address] [facility] [id number] [address] [place] [address] October, [facility] [address] [id number] [address] [place] [address], [place] [address] 30 Oct, 2014 [facility] [address] [id number] [address] [place] [address], [place] [address] 14 Oct, 2014 [facility] [address] [id number] [address] [place] [address], [place] [address] 13 Oct, 2014 [facility] [address] [id number] [address] [place] [address], [place] [address] Aug, [facility] [address] [id number] [address] [place] [address], [place] [address] Aug, [facility] [address] [id number] [address] [place] [address], [place] [address] Aug, [facility] [address] [id number] [address] [place] [address], [place] [address] Aug, 2014 [facility] [address] [id number] [address] [place] [address], [place] [address] Aug, 2014 [facility] [address] [id number] [address] [place] [address], [place] [address] Aug, [facility] [address] [id number] [address] [place] [address], [place] [address] Aug, 2014 [facility] [address] [id number] [address] [place] [address], [place] [address] Aug, 2014 [facility] [address] [id number] [address] [place] [address], [place] [address] Aug, 2014 [facility] [address] [id number] [address] [place] [address], [place] [address] Aug, 2014 [facility] [address] [id number] [address] [place] [address], [place] [address] Aug, 2014 [facility] [address] [id number] [address] [place] [address], [place] [address] 05 Aug, 2014 [facility] [address] [id number] [address] [place] [address] Aug, [facility] [address] [id number] [address] [place] [address], [place] [address] Aug, [facility] [address] [id number] [address] [place] [address], [place] [address] Aug, [facility] [address] [id number] [address] [place] [address], [place] [address] Jul, [facility] [address] [id number] [address] [place] [address], [place] [address] Jul, [facility] [address] [id number] [address] [place] [address], [place] [address] Jul, [facility] [address] [id number] [address] [place] [address], [place] [address] Jul, [facility] [address] [id number] [address] [place] [address], [place] [address] Jul, [facility] [address] [id number] [address] [place] [address], [place] [address] Jul, [facility] [address] [id number] [address] [place] [address], [place] [address] Jul, [facility] [address] [id number] [address] [place] [address], [place] [address] Jul, [facility] [address] [id number] [address] [place] [address], [place] [address] Jun, [facility] [address] [id number] [address] [place] [address], [place] [address] Jun, [facility] [address] [id number] [address] [place] [address], [place] [address] Jun, [facility] [address] [id number] [address] [place] [address], [place] [address] Jun, [facility] [address] [id number] [address] [place] [address], [place] [address] Jun, [facility] [address] [id number] [address] [place] [address], [place] [address] 15 Jun, 2014 [facility] [address] [id number] [address] [place] [address], [place] [address] 15 Jun, 2014 [facility] [address] [id number] [address] [place] [address], [place] [address] Jun, [facility] [address] [id number] [address] [place] [address], [place] [address] Jun, [facility] [address] [id number] [address] [place] [address], [place] [address] Jun, [facility] [address] [id number] [address] [place] [address], [place] [address] Jun, [facility] [address] [id number] [address] [place] [address], [place] [address] May, [facility] [address] [id number] [address] [place] [address], [place] [address] May, [facility] [address] [id number] [address] [place] [address], [place] [address] May, [facility] [address] [id number] [address] [place] [address], [place] [address] May, [facility] [address] [id number] [address] [place] [address], [place] [address] May, [facility] [address] [id number] [address] [place] [address], [place] [address] May, [facility] [address] [id number] [address] [place] [address], [place] [address] May, [facility] [address] [id number] [address] [place] [address], [place] [address] Apr, [facility] [address] [id number] [address] [place] [address], [place] [address] Apr, [facility] [address] [id number] [address] [place] [address], [place] [address] Apr, [facility] [address] [id number] [address] [place] [address], [place] [address] Apr, [facility] [address] [id number] [address] [place] [address], [place] [address] Apr, [facility] [address] [id number] [address] [place] [address], [place] [address] Apr, [facility] [address] [id number] [address] [place] [address], [place] [address] Mar, [facility] [address] [id number] [address] [place] [address], [place] [address] Mar, [facility] [address] [id number] [address] [place] [address], [place] [address] Mar, [facility] [address] [id number] [address] [place] [address], [place] [address] Mar, [facility] [address] [id number] [address] [place] [address], [place] [address] Mar, [facility] [address] [id number] [address] [place] [address], [place] [address] Mar, [facility] [address] [id number] [address] [place] [address], [place] [address] Jan, [facility] [address] [id number] [address] [place] [address], [place] [address] Jan, [facility] [address] [id number] [address] [place] [address], [place] [address] Jan, [facility] [address] [id number] [address] [place] [address], [place] [address] Jan, [facility] [address] [id number] [address] [place] [address], [place] [address] Dec, [facility] [address] [id number] [address] [place] [address], [place] [address] Dec, [facility] [address] [id number] [address] [place] [address], [place] [address] Dec, [facility] [address] [id number] [address] [place] [address], [place] [address] Dec, [facility] [address] [id number] [address] [place] [address], [place] [address] Dec, [facility] [address] [id number] [address] [place] [address], [place] [address] Dec, [facility] [address] [id number] [address] [place] [address], [place] [address] Dec, [facility] [address] [id number] [address] [place] [address], [place] [address] Dec, [facility] [address] [id number] 80 [place] [address], [place] [address] Dec, [facility] [address] [id number] [address] [place] [address], [place] [address] Dec, [facility] [address] [id number] [address] [place] [address], [place] [address] Dec, [facility] [address] [id number] [address] [place] [address], [place] [address] Dec, [facility] [address] [id number] [address] [place] [address], [place] [address] October, [facility] [address] [id number] [address] [place] [address], [place] [address] October, [facility] [address] [id number] [address] [place] [address], [place] [address] October, [facility] [address] [id number] [address] [place] [address], [place] [address] October, [facility] [address] [id number] [address] [place] [address], [place] [address] October, [facility] [address] [id number] [address] [place] [address], [place] [address] October, [facility] [address] [id number] [facility] [place] [address] Oct, [facility] [address] [id number] [facility] [place] [address] Oct, [facility] [address] [id number] [address] [place] [address], [place] [address] Oct, [facility] [address] [id number] [address] [place] [address], [place] [address] Oct, [facility] [address] [id number] [address] [place] [address], [place] [address] Oct, [facility] [address] [id number] [address] [place] [address], [place] [address] Oct, [facility] [address] [id number] [address] [place] [address], [place] [address] Oct, [facility] [address] [id number] [address] [place] [address], [place] [address] Oct, [facility] [address] [id number] [address] [place] [address], [place] [address] Oct, [facility] [address] [id number] [address] [place] [address], [place] [address] Oct, [facility] [address] [id number] [address] [place] [address], [place] [address] Oct, [facility] [address] [id number] [address] [place] [address], [place] [address] Oct, [facility] [address] [id number] [address] [place] [address], [place] [address] Aug, [facility] [address] [id number] [address] [place] [address], [place] [address] Aug, [facility] [address] [id number] [address] [place] [address], [place] [address] Aug, [facility] [address] [id number] [address] [place] [address], [place] [address] Aug, [facility] [address] [id number] [address] [place] [address], [place] [address] 05 Aug, 2013 [facility] [address] [id number] [address] [place] [address], [place] [address] 05 Aug, 2013 [facility] [address] [id number] [address] [place] [address], [place] [address] Aug, [facility] [address] [id number] [address] [place] [address], [place] [address] Aug, [facility] [address] [id number] [address] [place] [address], [place] [address] Aug, [facility] [address] [id number] [address] [place] [address], [place] [address] 24 Aug, 2013 [facility] [address] [id number] [address] [place] [address], [place] [address] 24 Aug, 2013 [facility] [address] [id number] [address] [place] [address], [place] [address] Aug, [facility] [address] [id number] [address] [place] [address], [place] [address] Aug, [facility] [address] [id number] [address] [place] [address], [place] [address] 20 Aug, 2013 [facility] [address] [id number] [address] [place] [address], [place] [address] 14 Aug, 2013 [facility] [address] [id number] [address] [place] [address], [place] [address] 14 Aug, 2013 [facility] [address] [id number] [address] [place] [address], [place] [address] 14 Aug, 2013 [facility] [address] [id number] [address] [place] [address], [place] [address] 14 Aug, 2013 [facility] [address] [id number] [address] [place] [address], [place] [address] 07 Aug, 2013 [facility] [address] [id number] [address] [place] [address], [place] [address] 07 Aug, 2013 [facility] [address] [id number] [address] [place] [address], [place] [address] Aug, [facility] [address] [id number] [address] [place] [address], [place] [address] Aug, [facility] [address] [id number] [address] [place] [address], [place] [address] Aug, [facility] [address] [id number] [address] [place] [address], [place] [address] Aug, [facility] [address] [id number] [address] [place] [address], [place] [address] Aug, [facility] [address] [id number] [address] [place] [address], [place] [address] Jul, [facility] [address] [id number] [address] [place] [address], [place] [address] Jul, [facility] [address] [id number] [address] [place] [address], [place] [address] Jul, [facility] [address] [id number] [address] [place] [address], [place] [address] Jul, [facility] [address] [id number] [address] [place] [address], [place] [address] Jul, [facility] [address] [id number] [address] [place] [address], [place] [address] Jul, [facility] [address] [id number] [address] [place] [address], [place] [address] Jul, [facility] [address] [id number] [address] [place] [address], [place] [address] Jul, [facility] [address] [id number] [address] [place] [address], [place] [address] Jul, [facility] [address] [id number] [address] [place] [address], [place] [address] Jul, [facility] [address] [id number] [address] [place] [address], [place] [address] Jul, [facility] [address] [id number] [address] [place] [address], [place] [address] Jul, [facility] [address] [id number] [address] [place] [address], [place] [address] Jul, [facility] [address] [id number] [address] [place] [address], [place] [address] Jul, [facility] [address] [id number] [address] [place] [address], [place] [address] Jul, [facility] [address] [id number] [address] [place] [address], [place] [address] Jul, [facility] [address] [id number] [address] [place] [address], [place] [address] Jul, [facility] [address] [id number] [address] [place] [address], [place] [address] Jul, [facility] [address] [id number] [address] [place] [address], [place] [address] Jul, [facility] [address] [id number] [address] [place] [address], [place] [address] Jul, [facility] [address] [id number] [address] [place] [address], [place] [address] Jun, [facility] [address] [id number] [address] [place] [address], [place] [address] Jun, [facility] [address] [id number] [address] [place] [address], [place] [address] Jun, [facility] [address] [id number] [address] [place] [address], [place] [address] Jun, [facility] [address] [id number] [address] [place] [address], [place] [address] Jun, [facility] [address] [id number] [address] [place] [address], [place] [address] Jun, [facility] [address] [id number] [address] [place] [address], [place] [address] Jun, [facility] [address] [id number] [address] [place] [address], [place] [address] Jun, [facility] [address] [id number] [address] [place] [address], [place] [address] Jun, [facility] [address] [id number] [address] [place] [address], [place] [address] Jun, [facility] [address] [id number] [address] [place] [address], [place] [address] Jun, [facility] [address] [id number] [address] [place] [address], [place] [address] Jun, [facility] [address] [id number] [address] [place] [address], [place] [address] Jun, [facility] [address] [id number] [address] [place] [address], [place] [address] Jun, [facility] [address] [id number] [address] [place] [address], [place] [address] Jun, [facility] [address] [id number] [address] [place] [address], [place] [address] 18 Jun, 2013 [facility] [address] [id number] [address] [place] [address], [place] [address] 18 Jun, 2013 [facility] [address] [id number] [address] [place] [address], [place] [address] 17 Jun, 2013 [facility] [address] [id number] [address] [place] [address], [place] [address] 17 Jun, 2013 [facility] [address] [id number] [address] [place] [address], [place] [address] 13 Jun, 2013 [facility] [address] [id number] [address] [place] [address], [place] [address] Jun, [facility] [address] [id number] [address] [place] [address], [place] [address] Jun, [facility] [address] [id number] [address] [place] [address], [place] [address] Jun, [facility] [address] [id number] [address] [place] [address], [place] [address] Jun, [facility] [address] [id number] [address] [place] [address], [place] [address] Jun, [facility] [address] [id number] [address] [place] [address], [place] [address] Jun, [facility] [address] [id number] [address] [place] [address], [place] [address] Jun, [facility] [address] [id number] [address] [place] [address], [place] [address] May, [facility] [address] [id number] [address] [place] [address] May, [facility] [address] [id number] [address] [place] [address] May, [facility] [address] [id number] [address] [place] [address] May, [facility] [address] [id number] [address] [place] [address] May, [facility] [address] [id number] [address] [place] [address] May, [facility] [address] [id number] [address] [place] [address], [place] [address] Apr, [facility] [address] [id number] [address] [place] [address] Apr, [facility] [address] [id number] [address] [place] [address] Apr, [facility] [address] [id number] [address] [place] [address], [place] [address] 30 Apr, 2013 [facility] [address] [id number] [address] [place] [address], [place] [address] 21 Apr, 2013 [facility] [address] [id number] [address] [place] [address], [place] [address] 15 Apr, 2013 [facility] [address] [id number] [address] [place] [address], [place] [address] 15 Apr, 2013 [facility] [address] [id number] [address] [place] [address], [place] [address] Apr, [facility] [address] [id number] [address] [place] [address], [place] [address] 26 Mar, 2012 [facility] [address] [id number] [address] [place] [address], [place] [address] 24 Mar, 2012 [facility] [address] [id number] [address] [place] [address], [place] [address] 17 Mar, 2012 [facility] [address] [id number] [address] [place] [address], [place] [address] 17 Mar, 2012 [facility] [address] [id number] [address] [place] [address], [place] [address] 11 Mar, 2013 [facility] [address] [id number] [address] [place] [address], [place] [address] 10 Mar, 2012 [facility] [address] [id number] [address] [place] [address], [place] [address] 05 Mar, 2012 [facility] [address] [id number] [address] [place] [address], [place] [address] 04 Mar, 2012 [facility] [address] [id number] [address] [place] [address], [place] [address] 20 Jan, 2013 [facility] [address] [id number] [address] [place] [address], [place] [address] 19 Jan, 2013 [facility] [address] [id number] [address] [place] [address], [place] [address] 14 Jan, 2013 [facility] [address] [id number] [address] [place] [address], [place] [address] 12 Jan, 2013 [facility] [address] [id number] [address] [place] [address], [place] [address] Jan, [facility] [address] [id number] [address] [place] [address], [place] [address] Jan, [facility] [address] [id number] [address] [place] [address], [place] [address] Dec, [facility] [address] [id number] [address] [place] [address], [place] [address] Dec, [facility] [address] [id number] [address] [place] [address], [place] [address] Dec, [facility] [address] [id number] [address] [place] [address], [place] [address] Dec, [facility] [address] [id number] [address] [place] [address], [place] [address] 18 Dec, 2012 [facility] [address] [id number] [address] [place] [address], [place] [address] 17 Dec, 2012 [facility] [address] [id number] [address] [place] [address], [place] [address] 16 Dec, 2012 [facility] [address] [id number] [address] [place] [address], [place] [address] 16 Dec, 2012 [facility] [address] [id number] [address] [place] [address], [place] [address] 15 Dec, 2012 [facility] [address] [id number] [address] [place] [address], [place] [address] Dec, [facility] [address] [id number] [address] [place] [address], [place] [address] Dec, [facility] [address] [id number] [address] [place] [address], [place] [address] Dec, [facility] [address] [id number] [address] [place] [address], [place] [address] Dec, [facility] [address] [id number] [address] [place] [address], [place] [address] Dec, [facility] [address] [id number] [address] [place] [address], [place] [address] Dec, [facility] [address] [id number] [address] [place] [address], [place] [address] Dec, [facility] [address] [id number] [address] [place] [address], [place] [address] October, [facility] [address] [id number] [address] [place] [address], [place] [address] October, [facility] [address] [id number] [address] [place] [address], [place] [address] October, [facility] [address] [id number] [address] [place] [address], [place] [address] October, [facility] [address] [id number] [address] [place] [address], [place] [address] October, [facility] [address] [id number] [address] [place] [address], [place] [address] October, [facility] [address] [id number] [address] [place] [address], [place] [address] October, [facility] [address] [id number] [address] [place] [address], [place] [address] Oct, [facility] [address] [id number] [address] [place] [address], [place] [address] Oct, [facility] [address] [id number] [address] [place] [address], [place] [address] Oct, [facility] [address] [id number] [address] [place] [address], [place] [address] Oct, [facility] [address] [id number] [address] [place] [address], [place] [address] Oct, [facility] [address] [id number] [address] [place] [address], [place] [address] 18 Oct, 2012 [facility] [address] [id number] [address] [place] [address], [place] [address] 17 Oct, 2012 [facility] [address] [id number] [address] [place] [address], [place] [address] 15 Oct, 2012 [facility] [address] [id number] [address] [place] [address], [place] [address] 12 Oct, 2012 [facility] [address] [id number] [address] [place] [address], [place] [address] Oct, [facility] [address] [id number] [address] [place] [address], [place] [address] Oct, [facility] [address] [id number] [address] [place] [address], [place] [address] Oct, [facility] [address] [id number] [address] [place] [address], [place] [address] Aug, [facility] [address] [id number] [address] [place] [address], [place] [address] Aug, [facility] [address] [id number] [address] [place] [address], [place] [address] Aug, [facility] [address] [id number] [address] [place] [address], [place] [address] Aug, [facility] [address] [id number] [address] [place] [address], [place] [address] 05 Aug, 2012 [facility] [address] [id number] [address] [place] [address], [place] [address] 05 Aug, 2012 [facility] [address] [id number] [address] [place] [address], [place] [address] 20 Aug, 2012 [facility] [address] [id number] [address] [place] [address], [place] [address] 14 Aug, 2012 [facility] [address] [id number] [address] [place] [address], [place] [address] 12 Aug, 2012 [facility] [address] [id number] [address] [place] [address], [place] [address] 11 Aug, 2012 [facility] [address] [id number] [address] [place] [address], [place] [address] 29 Jul, 2012 [facility] [address] [id number] [address] [place] [address], [place] [address] 15 Jul, 2012 [facility] [address] [id number] [address] [place] [address], [place] [address] 08 Jul, 2012 [facility] [address] [id number] [address] [place] [address], [place] [address] 20 Jun, 2012 [facility] [address] [id number] [address] [place] [address], [place] [address] 18 Jun, 2012 [facility] [address] [id number] [address] [place] [address], [place] [address] 18 Jun, 2012 [facility] [address] [id number] [address] [place] [address], [place] [address] 18 Jun, 2012 [facility] [address] [id number] [address] [place] [address], [place] [address] 18 Jun, 2012 [facility] [address] [id number] [address] [place] [address], [place] [address] 14 Jun, 2012 [facility] [address] [id number] [address] [place] [address], [place] [address] 14 Jun, 2012 [facility] [address] [id number] [address] [place] [address], [place] [address] 13 Jun, 2012 [facility] [address] [id number] [address] [place] [address], [place] [address] 13 Jun, 2012 [facility] [address] [id number] [address] [place] [address], [place] [address] 11 Jun, 2012 [facility] [address] [id number] [address] [place] [address], [place] [address] 11 Jun, 2012 [facility] [address] [id number] [address] [place] [address], [place] [address] Jun, [facility] [address] [id number] [address] [place] [address], [place] [address] Jun, [facility] [address] [id number] [address] [place] [address], [place] [address] Jun, [facility] [address] [id number] [address] [place] [address], [place] [address] Jun, [facility] [address] [id number] [address] [place] [address], [place] [address] Jun, [facility] [address] [id number] [address] [place] [address], [place] [address] Jun, [facility] [address] [id number] [address] [place] [address], [place] [address] Jun, [facility] [address] [id number] [address] [place] [address], [place] [address] Jun, [facility] [address] [id number] [address] [place] [address], [place] [address] Jun, [facility] [address] [id number] [address] [place] [address], [place] [address] Jun, [facility] [address] [id number] [address] [place] [address], [place] [address] Jun, [facility] [address] [id number] [address] [place] [address], [place] [address] Jun, [facility] [address] [id number] [address] [place] [address], [place] [address] May, [facility] [address] [id number] [address] [place] [address], [place] [address] May, [facility] [address] [id number] [address] [place] [address], [place] [address] May, [facility] [address] [id number] [address] [place] [address], [place] [address] May, [facility] [address] [id number] [address] [place] [address], [place] [address] May, [facility] [address] [id number] [address] [place] [address], [place] [address] May, [facility] [address] [id number] [address] [place] [address], [place] [address] May, [facility] [address] [id number] [address] [place] [address], [place] [address] May, [facility] [address] [id number] [address] [place] [address], [place] [address] Apr, [facility] [address] [id number] [address] [place] [address], [place] [address] Apr, [facility] [address] [id number] [address] [place] [address], [place] [address] Apr, [facility] [address] [id number] [address] [place] [address], [place] [address] Apr, [facility] [address] [id number] [address] [place] [address], [place] [address] Apr, [facility] [address] [id number] [address] [place] [address] Apr, [facility] [address] [id number] [address] [place] [address] Apr, [facility] [address] [id number] [address] [place] [address] Apr, [facility] [address] [id number] [address] [place] [address], [place] [address] Apr, [facility] [address] [id number] [address] [place] [address], [place] [address] Apr, [facility] [address] [id number] [address] [place] [id number] Apr, [facility] [address] [id number] [address] [place] [address] Apr, [facility] [address] [id number] [address] [place] [id number] 19 Mar, 2012 [facility] [address] [id number] [address] [place] [id number] 18 Mar, 2012 [facility] [address] [id number] [address] [place] [id number] 12 Mar, 2012 [facility] [address] [id number] [address] [place] [address] 12 Mar, 2012 [facility] [address] [id number] [address] [place] [id number] Mar, [facility] [address] [id number] [address] [place] [id number] Mar, [facility] [address] [id number] [address] [place] [id number] 04 Mar, 2012 [facility] [address] [id number] [address] [place] [id number] 29 Feb, 2012 [facility] [address] [id number] [address] [place] [id number] Jan, [facility] [address] [id number] [address] [place] [id number] Jan, [facility] [address] [id number] [address] [place] [id number] Jan, [facility] [address] [id number] [address] [place] [id number] 17 Feb, 2012 [facility] [address] [id number] [address] [place] [id number] Jan, [facility] [address] [id number] [address] [place] [phone] 16 Feb, 2012 [facility] [address] [id number] [address] [place] [id number] 14 Feb, 2012 [facility] [address] [id number] [address] [place] [address], [place] [address] Jan, [facility] [address] [id number] [address] [place] [address], [place] [address] Jan, [facility] [address] [id number] [address] [place] [address], [place] [address] Jan, [facility] [address] [id number] [address] [place] [address], [place] [address] Dec, [facility] [address] [id number] [address] [place] [address], [place] [address] Dec, [facility] [address] [id number] [address] [place] [address], [place] [address] Dec, [facility] [address] [id number] [address] [place] [address], [place] [address] Dec, [facility] [address] [id number] [address] [place] [address], [place] [address] Dec, [facility] [address] [id number] [address] [place] [address], [place] [address] Dec, [facility] [address] [id number] [address] [place] [address], [place] [address] Dec, [facility] [address] [id number] [address] [place] [address], [place] [address] 17 Jan, 2012 [facility] [address] [id number] [address] [place] [address], [place] [address] 16 Jan, 2012 [facility] [address] [id number] [address] [place] [address], [place] [address] Dec, [facility] [address] [id number] [address] [place] [address], [place] [address] Dec, [facility] [address] [id number] [address] [place] [address], [place] [address] Dec, [facility] [address] [id number] [address] [place] [address], [place] [address] Dec, [facility] [address] [id number] [address] [place] [address], [place] [address] Dec, [facility] [address] [id number] [address] [place] [address], [place] [address] Dec, [facility] [address] [id number] [address] [place] [address], [place] [address] 18 Dec, 2011 [facility] [address] [id number] [address] [place] [address], [place] [address] 15 Dec, 2011 [facility] [address] [id number] [address] [place] [address], [place] [address] 06 Dec, 2011 [facility] [address] [id number] [address] [place] [address], [place] [address] 05 Dec, 2011 [facility] [address] [id number] [address] [place] [address], [place] [address] October, [facility] [address] [id number] [address] [place] [address], [place] [address] October, [facility] [address] [id number] [address] [place] [address], [place] [address] October, [facility] [address] [id number] [address] [place] [address], [place] [address] October, [facility] [address] [id number] [address] [place] [address], [place] [address] October, [facility] [address] [id number] [address] [place] [address], [place] [address] October, [facility] [address] [id number] [address] [place] [address], [place] [address] Oct, [facility] [address] [id number] [address] [place] [address], [place] [address] Oct, [facility] [address] [id number] [address] [place] [address], [place] [address] Oct, [facility] [address] [id number] [address] [place] [address], [place] [address] Oct, [facility] [address] [id number] [address] [place] [address], [place] [address] Oct, [facility] [address] [id number] [address] [place] [address], [place] [address] Oct, [facility] [address] [id number] [address] [place] [address], [place] [address] Oct, [facility] [address] [id number] [address] [place] [address], [place] [address] Aug, [facility] [address] [id number] [address] [place] [address], [place] [address] 29 Sep, 2011 [facility] [address] [id number] [address] [place] [address], [place] [address] Aug, [facility] [address] [id number] [address] [place] [address], [place] [address] Aug, [facility] [address] [id number] [address] [place] [address], [place] [address] Aug, [facility] [address] [id number] [address] [place] [address], [place] [address] 05 Sep, 2011 [facility] [address] [id number] [address] [place] [address], [place] [address] Aug, [facility] [address] [id number] [address] [place] [address], [place] [address] Aug, [facility] [address] [id number] [address] [place] [address], [place] [address] Aug, [facility] [address] [id number] [address] [place] [address], [place] [address] Jul, [facility] [address] [id number] [address] [place] [address], [place] [address] Jul, [facility] [address] [id number] [address] [place] [address], [place] [address] Jul, [facility] [address] [id number] [address] [place] [address], [place] [address] 10 Jul, 2011 [facility] [address] [id number] [address] [place] [address], [place] [address] Jun, [facility] [address] [id number] [address] [place] [address], [place] [address] Jun, [facility] [address] [id number] [address] [place] [address], [place] [address] May, [facility] [address] [id number] [address] [place] [address], [place] [address] May, [facility] [address] [id number] [address] [place] [address], [place] [address] May, [facility] [address] [id number] [address] [place] [address], [place] [address] May, [facility] [address] [id number] [address] [place] [address], [place] [address] May, [facility] [address] [id number] [address] [place] [address], [place] [address] Apr, [facility] [address] [id number] [address] [place] [address], [place] [address] Apr, [facility] [address] [id number] [address] [place] [address], [place] [address] Apr, [facility] [address] [id number] [address] [place] [address], [place] [address] 15 Jan, 2011 [facility] [address] [id number] [address] [place] [address], [place] [address] Dec, [facility] [address] [id number] [address] [place] [address], [place] [address] October, [facility] [address] [id number] [address] [place] [address], [place] [address] Jun, [facility] [address] [id number] [address] [place] [address] [address] Apr, [facility] [address] [facility] [id number] [address] [place] [address] Apr, [facility] [address] [facility] [id number] [address] [place] [address] Apr, [facility] [address] [facility] [id number] [address] [place] [address] Jun, IMMUNIZATIONS No Known Immunizations SOCIAL HISTORY Never Assessed REASON FOR VISIT f/u-teofilo MA, AIMS and labs PLAN OF CARE Activity Details Follow Up prn Reason: Follow-up VITAL SIGNS Height 69 in 2018-09-11 Weight 238.0 lbs 2018-09-11 Heart Rate 86 bpm 2018-09-11 Respiratory Rate 18 2018-09-11 BMI 35.14 kg/m2 2018-09-11 Blood pressure systolic 134 mmHg 2018-09-11 Blood pressure diastolic 80 mmHg 2018-09-11 MEDICATIONS Medication Instructions Dosage Frequency Start Date End Date Duration S tatus Plus Iron 29-1 MG Orally Once a day 1 tablet 24h 90 days Active Gabapentin 800 MG Orally 4 times a day 1 tablet 6h 30 Active Seroquel 400 mg Orally at bedtime TAKE TWO TABLETS BY MOUTH ONCE DAILY AT BEDTIME Active Prazosin HCl 2 MG Orally at bedtime 4 capsules Aug, Active HydrOXYzine HCl 50 mg Orally 3 times a day 1 tablet as needed 8h Active RESULTS No Results PROCEDURES Procedure Date Ordered Result Body Site [facility] VISIT ESTABLISHED PATIENT September 11, 2018 [facility] VISIT ESTABLISHED PATIENT September 11, 2018 INSTRUCTIONS MEDICATIONS ADMINISTERED No Known Medications MEDICAL (GENERAL) HISTORY Type Description Date Medical History Psychiatric disorder Medical History Hard of hearing Surgical History Neofibrous tumor Surgical History back injection Surgical History SCS inserted 02/22/16 Hospitalization History Intestinal blockage Hospitalization History past psychiatric hospitalizations x2 Hospitalization History SCS 02/01-
--- OUTSIDE RECORDS SUMMARY | 2020-01-25 12:43 | XMS REPORT ---
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 Name Role Phone MELISA Iraheta Unavailable PROBLEMS Type Condition ICD9-CM Code [id number] Code Onset Dates Condition S tatus SNOMED Code Problem Attention deficit R41.840 Active 76 504184 Problem Chronic hepatitis C without hepatic coma B18.2 Active 757876335 Problem Cannabis abuse F12.10 Active 98325 009 Problem Bipolar disorder, in partial remission, most rec ent episode hypomanic F31.71 Active 090290226 Problem Attention deficit hyperactivity disorder (ADHD), combi luciano type F90.2 Active 68010356 Problem Bipolar 1 disorder F31.9 Active 3 01861009 Problem H/O laminectomy Z98.89 Active 1616 54491 Problem Other chronic pain G89.29 Active 8 4792352 Problem Anxiety disorder, unspecified type F41.9 Active [id number] ALLERGIES No Information ENCOUNTERS Encounter Location Date Diagnosis [facility] [address] [facility] [id number] [address] [place] [address] Dec, [facility] [address] [facility] [id number] [address] [place] [address] Dec, Other chronic pain G89.29 an d Low back pain M54.5 [facility] [address] [facility] [id number] [address] [place] [address] October, [facility] [address] [facility] [id number] [address] [place] [address] October, [facility] [address] [facility] [id number] [address] [place] [address] October, [facility] [address] [facility] [id number] [address] [place] [address] October, Other chronic pain G89.29 an d Chronic hepatitis C without hepatic coma B18.2 [facility] [address] [id number] [address] [place] [address] Aug, Bipolar disorder, in partial remission, most recent episode hypomanic F31.71 ; Attention deficit hyperactivity disorder (ADHD), combined type F90.2 and Anxiety disorder, unspecified type F41.9 [facility] [address] [id number] [address] [place] [address] Aug, [facility] [address] [id number] [address] [place] [address] Aug, Bipolar disorder, in partial remission, most recent episode hypomanic F31.71 [facility] [address] [id number] [address] [place] [address] Aug, [facility] [address] [id number] [address] [place] [address] Aug, Bipolar disorder, in partial remission, most recent episode hypomanic F31.71 [facility] [address] [id number] [address] [place] [address] Aug, Bipolar disorder, in partial remission, most recent episode hypomanic F31.71 ; Attention deficit hyperactivity disorder (ADHD), combined type F90.2 and Anxiety disorder, unspecified type F41.9 [facility] [address] [id number] [address] [place] [address] Aug, Low back pain M54.5 and Pain in left wrist M25.532 [facility] [address] [id number] [address] [place] [address] Aug, [facility] [address] [facility] [id number] [address] [place] [address] Jun, [facility] [address] [id number] [address] [place] [address] Apr, Bipolar disorder, in partial remission, most recent episode hypomanic F31.71 [facility] [address] [id number] [address] [place] [address] Apr, [facility] [address] [facility] [id number] [address] [place] [address] Apr, Bipolar disorder, in partial remission, most recent episode hypomanic F31.71 ; Attention deficit hyperactivity disorder (ADHD), combined type F90.2 ; Anxiety disorder, unspecified type F41.9 and Other long goods drier (current) 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 Z79.899 [facility] [address] [id number] [address] [place] [address] Apr, Bipolar disorder, in partial remission, most recent episode hypomanic F31.71 [facility] [address] [facility] [id number] [address] [place] [address] Apr, Bipolar disorder, in partial remission, most recent episode hypomanic F31.71 [facility] [address] [facility] [id number] [address] [place] [address] Mar, [place] [address] [facility] [id number] [address] [place] [address] Mar, Bipolar disorder, in partial remission, most recent episode hypomanic F31.71 ; Encounter for immunization Z23 and Low back pain M54.5 [facility] [address] [id number] [address] [place] [id number] 17 Mar, 2018 Bipolar disorder, in partial remission, most recent episode hypomanic F31.71 [facility] [address] [facility] [id number] [address] [place] [address] Mar, Bipolar disorder, in partial remission, most recent episode hypomanic F31.71 [facility] [address] [facility] [id number] [address] [place] [address] Jan, Bipolar disorder, in partial remission, most recent episode hypomanic F31.71 [facility] [address] [facility] [id number] [address] [place] [address] Jan, Bipolar disorder, in partial remission, most recent episode hypomanic F31.71 [facility] [address] [id number] [address] [place] [address] Dec, Bipolar disorder, in partial remission, most recent episode hypomanic F31.71 [facility] [address] [id number] [address] [place] [address] Dec, Bipolar disorder, in partial remission, most recent episode hypomanic F31.71 ; Attention deficit hyperactivity disorder (ADHD), combined type F90.2 ; Anxiety disorder, unspecified type F41.9 and Other detention (current) 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 Z79.899 [facility] [address] [id number] [address] [place] [address] Dec, Bipolar disorder, in partial remission, most recent episode hypomanic F31.71 [facility] [address] [id number] [address] [place] [address] Dec, Bipolar disorder, in partial remission, most recent episode hypomanic F31.71 [facility] [address] [id number] [address] [place] [address] October, Bipolar disorder, in partial remission, most recent episode hypomanic F31.71 [facility] [address] [id number] [address] [place] [address] October, [facility] [address] [facility] [id number] [address] [place] [address] October, [facility] [address] [facility] [id number] [address] [place] [address] Oct, Bipolar disorder, in partial remission, most recent episode hypomanic F31.71 ; Attention deficit hyperactivity disorder (ADHD), combined type F90.2 ; Anxiety disorder, unspecified type F41.9 and Encounter for drug screening Z02.83 [facility] [address] [id number] [address] [place] [address] Oct, Bipolar disorder, in partial remission, most recent episode hypomanic F31.71 [facility] [address] [facility] [id number] [address] [place] [address] Oct, Bipolar disorder, in partial remission, most recent episode hypomanic F31.71 [facility] [address] [id number] [address] [place] [address] Aug, Bipolar disorder, in partial remission, most recent episode hypomanic F31.71 [facility] [address] [id number] [address] [place] [address] Aug, Bipolar disorder, in partial remission, most recent episode hypomanic F31.71 [facility] [address] [id number] [address] [place] [address] Aug, Bipolar disorder, in partial remission, most recent episode hypomanic F31.71 [facility] [address] [facility] [id number] [address] [place] [address] Jul, Bipolar disorder, in partial remission, most recent episode hypomanic F31.71 ; Attention deficit hyperactivity disorder (ADHD), combined type F90.2 and Anxiety disorder, unspecified type F41.9 [facility] [address] [facility] [id number] [address] [place] [address] Jul, Bipolar disorder, in partial remission, most recent episode hypomanic F31.71 [facility] [address] [facility] [id number] [address] [place] [address] Jun, Bipolar disorder, in partial remission, most recent episode hypomanic F31.71 [facility] [address] [facility] [id number] [address] [place] [address] May, Bipolar disorder, in partial remission, most recent episode hypomanic F31.71 [facility] [address] [id number] [address] [place] [address] May, Bipolar disorder, in partial remission, most recent episode hypomanic F31.71 [facility] [address] [id number] [address] [place] [address] Apr, [facility] [address] [facility] [id number] [address] [place] [address] Apr, Bipolar disorder, in partial remission, most recent episode hypomanic F31.71 ; Attention deficit hyperactivity disorder (ADHD), combined type F90.2 ; Anxiety disorder, unspecified type F41.9 and Cannabis abuse F12.10 [facility] [address] [id number] [address] [place] [phone] Apr, Attention deficit hyperactiv ity disorder (ADHD), combined type F90.2 [facility] [address] [id number] [address] [place] [address] Mar, Attention deficit hyperactiv ity disorder (ADHD), combined type F90.2 [facility] [address] [id number] [address] [place] [address] Mar, Anxiety disorder, unspecifie d type F41.9 [facility] [address] [id number] [address] [place] [address] Jan, Attention deficit hyperactiv ity disorder (ADHD), combined type F90.2 [facility] [address] [id number] [address] [place] [phone] Jan, Anxiety disorder, unspecifie d type F41.9 [facility] [address] [facility] [id number] [address] [place] [address] Jan, Other chronic pain G89.29 ; Chronic hepatitis C without hepatic coma B18.2 and Bipolar 1 disorder F31.9 [facility] [address] [facility] [id number] [address] [place] [address] Dec, Attention deficit hyperactiv ity disorder (ADHD), combined type F90.2 [facility] [address] [id number] [address] [place] [address] Dec, Bipolar disorder, in partial remission, most recent episode hypomanic F31.71 ; Attention deficit hyperactivity disorder (ADHD), combined type F90.2 and Anxiety disorder, unspecified type F41.9 [facility] [address] [id number] [address] [place] [phone] 28 [place], 2017 Bipolar disorder, in partial remission, most recent episode hypomanic F31.71 ; Attention deficit hyperactivity disorder (ADHD), combined type F90.2 and Anxiety disorder, unspecified type F41.9 [facility] [address] [id number] [address] [place] [address] Dec, Bipolar 1 disorder F31.9 and Attention deficit R41.840 [facility] [address] [id number] [address] [place] [address] Oct, Other chronic pain G89.29 ; Alopecia L65.9 and Screening, lipid Z13.220 [facility] [address] [id number] [address] [place] [address] Oct, [facility] [address] [id number] [address] [place] [address] Aug, [facility] [address] [id number] [address] [place] [address] Aug, Eustachian tube dysfunction, right H69.81 ; Vertigo R42 and Other chronic pain G89.29 [facility] [address] [id number] [address] [place] [phone] Aug, [facility] [address] [id number] [address] [place] [address] Jun, [facility] [address] [id number] [address] [place] [address] Jun, Low back pain M54.5 and Othe r chronic pain G89.29 [facility] [address] [id number] [address] [place] [address] Jun, [facility] [address] [id number] [address] [place] [phone] May, [facility] [address] [id number] [address] [place] [address] Jan, [facility] [address] [id number] [address] [place] [address] Dec, [facility] [address] [id number] [address] [place] [address] Dec, [facility] [address] [id number] [address] [place] [phone] Jun, [facility] [address] [facility] [id number] [address] [place] [address] Apr, Eustachian tube dysfunction, unspecified laterality H69.80 ; Hot flashes N95.1 and Encounter for immunization Z23 [facility] [address] [id number] [address] [place] [address] Jan, [facility] [address] [id number] [address] [place] [address] Jan, [facility] [address] [facility] [id number] [address] [place] [phone] Jan, [facility] [address] [facility] [id number] [address] [place] [phone] Jan, [facility] [address] [facility] [id number] [address] [place] [address] Jan, Encounter to establish care V65.8 ; Bipolar 1 disorder 296.7 ; Abdominal pain 789.00 ; Constipation 564.00 ; Hard of hearing 389.9 and Drug abuse 305.90 [facility] [address] [id number] [address] [place] [address] Dec, [facility] [address] [id number] [address] [place] [id number] October, [facility] [address] [facility] [id number] [address] [place] [phone] October, [facility] [address] [facility] [id number] [address] [place] [address] Oct, [facility] [address] [facility] [id number] [address] [place] [address] Oct, [facility] [address] [id number] [address] [place] [address], [place] [address] Oct, [facility] [address] [id number] [address] [place] [address], [place] [address] Aug, [facility] [address] [id number] [address] [place] [address], [place] [address] Aug, [facility] [address] [id number] [address] [place] [address], [place] [address] Aug, [facility] [address] [id number] [address] [place] [address], [place] [address] Aug, 2014 [facility] [address] [id number] [address] [place] [address], [place] [address] Aug, 2014 [facility] [address] [id number] [address] [place] [address], [place] [address] Aug, 2014 [facility] [address] [id number] [address] [place] [address], [place] [address] Aug, 2014 [facility] [address] [id number] [address] [place] [address], [place] [address] Aug, 2014 [facility] [address] [id number] [address] [place] [address], [place] [address] Aug, 2014 [facility] [address] [id number] [address] [place] [address], [place] [address] Aug, 2014 [facility] [address] [id number] [address] [place] [address], [place] [address] Aug, 2014 [facility] [address] [id number] [address] [place] [address], [place] [address] Aug, 2014 [facility] [address] [id number] [address] [place] [address], [place] [address] Aug, 2014 [facility] [address] [id number] [address] [place] [phone] Aug, 2014 [facility] [address] [id number] [address] [place] [phone] Aug, [facility] [address] [id number] [address] [place] [address], [place] [address] Jul, [facility] [address] [id number] [address] [place] [address], [place] [address] Jul, [facility] [address] [id number] [address] [place] [address], [place] [address] Jul, [facility] [address] [id number] [address] [place] [address], [place] [address] Jul, [facility] [address] [id number] [address] [place] [address], [place] [address] Jul, [facility] [address] [id number] [address] [place] [address], [place] [address] Jul, [facility] [address] [id number] [address] [place] [address], [place] [address] Jul, [facility] [address] [id number] [address] [place] [address], [place] [address] Jul, [facility] [address] [id number] [address] [place] [address], [place] [address] Jun, [facility] [address] [id number] [address] [place] [address], [place] [address] Jun, [facility] [address] [id number] [address] [place] [address], [place] [address] Jun, [facility] [address] [id number] [address] [place] [address], [place] [address] 29 Jun, 2014 [facility] [address] [id number] [address] [place] [address], [place] [address] 18 Jun, 2014 [facility] [address] [id number] [address] [place] [address], [place] [address] Jun, [facility] [address] [id number] [address] [place] [address], [place] [address] Jun, [facility] [address] [id number] [address] [place] [address], [place] [address] Jun, [facility] [address] [id number] [address] [place] [address], [place] [address] Jun, [facility] [address] [id number] [address] [place] [address], [place] [address] Jun, [facility] [address] [id number] [address] [place] [address], [place] [address] Jun, [facility] [address] [id number] [address] [place] [address], [place] [address] May, [facility] [address] [id number] [address] [place] [address], [place] [address] May, [facility] [address] [id number] [address] [place] [address], [place] [address] May, [facility] [address] [id number] [address] [place] [address], [place] [address] May, [facility] [address] [id number] [address] [place] [address], [place] [address] May, [facility] [address] [id number] [address] [place] [address], [place] [address] May, [facility] [address] [id number] [address] [place] [address], [place] [address] May, [facility] [address] [id number] [address] [place] [address], [place] [address] Apr, [facility] [address] [id number] [address] [place] [address], [place] [address] Apr, [facility] [address] [id number] [address] [place] [address], [place] [address] Apr, [facility] [address] [id number] [address] [place] [address], [place] [address] Apr, [facility] [address] [id number] [address] [place] [address], [place] [address] Apr, [facility] [address] [id number] [address] [place] [address], [place] [address] Apr, [facility] [address] [id number] [address] [place] [address], [place] [address] Mar, [facility] [address] [id number] [address] [place] [address], [place] [address] Mar, [facility] [address] [id number] [address] [place] [address], [place] [address] Mar, [facility] [address] [id number] [address] [place] [address], [place] [address] Mar, [facility] [address] [id number] [address] [place] [address], [place] [address] Mar, [facility] [address] [id number] [address] [place] [address], [place] [address] Mar, [facility] [address] [id number] [address] [place] [address], [place] [address] Jan, [facility] [address] [id number] [address] [place] [address], [place] [address] Jan, [facility] [address] [id number] [address] [place] [address], [place] [address] Jan, [facility] [address] [id number] [address] [place] [address], [place] [address] Jan, [facility] [address] [id number] [address] [place] [address], [place] [address] Dec, [facility] [address] [id number] [address] [place] [address], [place] [address] Dec, [facility] [address] [id number] [address] [place] [address], [place] [address] Dec, [facility] [address] [id number] [address] [place] [address], [place] [address] Dec, [facility] [address] [id number] [address] [place] [address], [place] [address] Dec, [facility] [address] [id number] [address] [place] [address], [place] [address] Dec, [facility] [address] [id number] [address] [place] [address], [place] [address] Dec, [facility] [address] [id number] [address] [place] [address], [place] [address] Dec, [facility] [address] [id number] [address] [place] [address], [place] [address] Dec, [facility] [address] [id number] [address] [place] [address], [place] [address] Dec, [facility] [address] [id number] [address] [place] [address], [place] [address] Dec, [facility] [address] [id number] [address] [place] [address], [place] [address] Dec, [facility] [address] [id number] [address] [place] [address], [place] [address] October, [facility] [address] [id number] [address] [place] [address], [place] [address] October, [facility] [address] [id number] [address] [place] [address], [place] [address] October, [facility] [address] [id number] [address] [place] [address], [place] [address] October, [facility] [address] [id number] [address] [place] [address], [place] [address] October, [facility] [address] [id number] [address] [place] [address], [place] [address] October, [facility] [address] [id number] [address] [place] [address], [place] [address] Oct, [facility] [address] [id number] [address] [place] [address], [place] [address] Oct, [facility] [address] [id number] [facility] [address] Oct, [facility] [address] [id number] [facility] [place] [address] Oct, [facility] [address] [id number] [facility] [place] [address] Oct, [facility] [address] [id number] [address] [place] [address], [place] [address] Oct, [facility] [address] [id number] [facility] [place] [address] Oct, [facility] [address] [id number] [address] [place] [address], [place] [address] Oct, [facility] [address] [id number] [address] [place] [address], [place] [address] Oct, [facility] [address] [id number] [address] [place] [address], [place] [address] Oct, [facility] [address] [id number] [address] [place] [address], [place] [address] Oct, [facility] [address] [id number] [address] [place] [address], [place] [address] Oct, [facility] [address] [id number] [address] [place] [address], [place] [address] Aug, [facility] [address] [id number] [address] [place] [address], [place] [address] Aug, [facility] [address] [id number] [address] [place] [address], [place] [address] Aug, [facility] [address] [id number] [address] [place] [address], [place] [address] Aug, [facility] [address] [id number] [address] [place] [address], [place] [address] Aug, [facility] [address] [id number] [address] [place] [address], [place] [address] Aug, [facility] [address] [id number] [facility] [address] 04 Aug, 2013 [facility] [address] [id number] [address] [place] [address], [place] [address] Aug, [facility] [address] [id number] [address] [place] [address], [place] [address] Aug, [facility] [address] [id number] [address] [place] [address], [place] [address] 24 Aug, 2013 [facility] [address] [id number] [address] [place] [address], [place] [address] 24 Aug, 2013 [facility] [address] [id number] [address] [place] [address], [place] [address] Aug, [facility] [address] [id number] [address] [place] [address], [place] [address] Aug, [facility] [address] [id number] [address] [place] [address], [place] [address] 20 Aug, 2013 [facility] [address] [id number] [address] [place] [address], [place] [address] 14 Aug, 2013 [facility] [address] [id number] [address] [place] [address], [place] [address] 14 Aug, 2013 [facility] [address] [id number] [address] [place] [address], [place] [address] 14 Aug, 2013 [facility] [address] [id number] [address] [place] [address], [place] [address] 14 Aug, 2013 [facility] [address] [id number] [address] [place] [address], [place] [address] 07 Aug, 2013 [facility] [address] [id number] [address] [place] [address], [place] [address] 07 Aug, 2013 [facility] [address] [id number] [address] [place] [address], [place] [address] 06 Aug, 2013 [facility] [address] [id number] [address] [place] [address], [place] [address] Aug, [facility] [address] [id number] [address] [place] [address], [place] [address] Aug, [facility] [address] [id number] [address] [place] [address], [place] [address] Aug, [facility] [address] [id number] [address] [place] [address], [place] [address] Aug, [facility] [address] [id number] [address] [place] [address], [place] [address] Jul, [facility] [address] [id number] [address] [place] [address], [place] [address] Jul, [facility] [address] [id number] [address] [place] [address], [place] [address] Jul, [facility] [address] [id number] [address] [place] [address], [place] [address] Jul, [facility] [address] [id number] [address] [place] [address], [place] [address] Jul, [facility] [address] [id number] [address] [place] [address], [place] [address] Jul, [facility] [address] [id number] [address] [place] [address], [place] [address] Jul, [facility] [address] [id number] [address] [place] [address], [place] [address] Jul, [facility] [address] [id number] [address] [place] [address], [place] [address] Jul, [facility] [address] [id number] [address] [place] [address], [place] [address] Jul, [facility] [address] [id number] [address] [place] [address], [place] [address] Jul, [facility] [address] [id number] [address] [place] [address], [place] [address] Jul, [facility] [address] [id number] [address] [place] [address], [place] [address] Jul, [facility] [address] [id number] [address] [place] [address], [place] [address] Jul, [facility] [address] [id number] [address] [place] [address], [place] [address] Jul, [facility] [address] [id number] [address] [place] [address], [place] [address] Jul, [facility] [address] [id number] [address] [place] [address], [place] [address] Jul, [facility] [address] [id number] [address] [place] [address], [place] [address] Jul, [facility] [address] [id number] [address] [place] [address], [place] [address] Jul, [facility] [address] [id number] [address] [place] [address], [place] [address] Jul, [facility] [address] [id number] [address] [place] [address], [place] [address] Jun, [facility] [address] [id number] [address] [place] [address], [place] [address] Jun, [facility] [address] [id number] [address] [place] [address], [place] [address] 30 Jun, 2013 [facility] [address] [id number] [address] [place] [address], [place] [address] 30 Jun, 2013 [facility] [address] [id number] [address] [place] [address], [place] [address] Jun, [facility] [address] [id number] [address] [place] [address], [place] [address] Jun, [facility] [address] [id number] [address] [place] [address], [place] [address] Jun, [facility] [address] [id number] [address] [place] [address], [place] [address] Jun, [facility] [address] [id number] [address] [place] [address], [place] [address] Jun, [facility] [address] [id number] [address] [place] [address], [place] [address] Jun, [facility] [address] [id number] [address] [place] [address], [place] [address] Jun, [facility] [address] [id number] [address] [place] [address], [place] [address] Jun, [facility] [address] [id number] [address] [place] [address], [place] [address] Jun, [facility] [address] [id number] [address] [place] [address], [place] [address] Jun, [facility] [address] [id number] [address] [place] [address], [place] [address] Jun, [facility] [address] [id number] [address] [place] [address], [place] [address] Jun, [facility] [address] [id number] [address] [place] [address], [place] [address] Jun, [facility] [address] [id number] [address] [place] [address], [place] [address] 17 Jun, 2013 [facility] [address] [id number] [address] [place] [address], [place] [address] 17 Jun, 2013 [facility] [address] [id number] [address] [place] [address], [place] [address] 13 Jun, 2013 [facility] [address] [id number] [address] [place] [address], [place] [address] Jun, [facility] [address] [id number] [address] [place] [address], [place] [address] Jun, [facility] [address] [id number] [address] [place] [address], [place] [address] Jun, [facility] [address] [id number] [address] [place] [address], [place] [address] Jun, [facility] [address] [id number] [address] [place] [address], [place] [address] Jun, [facility] [address] [id number] [address] [place] [address], [place] [address] Jun, [facility] [address] [id number] [address] [place] [address], [place] [address] Jun, [facility] [address] [id number] [address] [place] [address], [place] [address] May, [facility] [address] [id number] [address] [place] [address], [place] [address] May, [facility] [address] [id number] [address] [place] [address], [place] [address] May, [facility] [address] [id number] [address] [place] [address] May, [facility] [address] [id number] [address] [place] [address], [place] [address] May, [facility] [address] [id number] [address] [place] [address] May, [facility] [address] [id number] [address] [place] [address] Apr, [facility] [address] [id number] [address] [place] [address] Apr, [facility] [address] [id number] [address] [place] [address], [place] [address] Apr, [facility] [address] [id number] [address] [place] [address] Apr, [facility] [address] [id number] [address] [place] [address], [place] [address] Apr, [facility] [address] [id number] [address] [place] [address], [place] [address] 15 Apr, 2013 [facility] [address] [id number] [address] [place] [address], [place] [address] 15 Apr, 2013 [facility] [address] [id number] [address] [place] [address], [place] [address] 01 Apr, 2013 [facility] [address] [id number] [address] [place] [address], [place] [address] 26 Mar, 2012 [facility] [address] [id number] [address] [place] [address], [place] [address] 24 Mar, 2012 [facility] [address] [id number] [address] [place] [address], [place] [address] 17 Mar, 2012 [facility] [address] [id number] [address] [place] [address], [place] [address] 17 Mar, 2012 [facility] [address] [id number] [address] [place] [address], [place] [address] 11 Mar, 2012 [facility] [address] [id number] [address] [place] [address], [place] [address] 10 Mar, 2012 [facility] [address] [id number] [address] [place] [address], [place] [address] 05 Mar, 2012 [facility] [address] [id number] [address] [place] [address], [place] [address] 04 Mar, 2013 [facility] [address] [id number] [address] [place] [address], [place] [address] 20 Jan, 2013 [facility] [address] [id number] [address] [place] [address], [place] [address] 19 Jan, 2013 [facility] [address] [id number] [address] [place] [address], [place] [address] 14 Jan, 2013 [facility] [address] [id number] [address] [place] [address], [place] [address] 12 Jan, 2013 [facility] [address] [id number] [address] [place] [address], [place] [address] 07 Jan, 2013 [facility] [address] [id number] [address] [place] [address], [place] [address] 05 Jan, 2013 [facility] [address] [id number] [address] [place] [address], [place] [address] 31 Dec, 2012 [facility] [address] [id number] [address] [place] [address], [place] [address] 24 Dec, 2012 [facility] [address] [id number] [address] [place] [address], [place] [address] Dec, [facility] [address] [id number] [address] [place] [address], [place] [address] Dec, [facility] [address] [id number] [address] [place] [address], [place] [address] 18 Dec, 2012 [facility] [address] [id number] [address] [place] [address], [place] [address] 17 Dec, 2012 [facility] [address] [id number] [address] [place] [address], [place] [address] 16 Dec, 2012 [facility] [address] [id number] [address] [place] [address], [place] [address] 16 Dec, 2012 [facility] [address] [id number] [address] [place] [address], [place] [address] 15 Dec, 2012 [facility] [address] [id number] [address] [place] [address], [place] [address] Dec, [facility] [address] [id number] [address] [place] [address], [place] [address] Dec, [facility] [address] [id number] [address] [place] [address], [place] [address] Dec, [facility] [address] [id number] [address] [place] [address], [place] [address] Dec, [facility] [address] [id number] [address] [place] [address], [place] [address] 17 Dec, 2012 [facility] [address] [id number] [address] [place] [address], [place] [address] Dec, [facility] [address] [id number] [address] [place] [address], [place] [address] Dec, [facility] [address] [id number] [address] [place] [address], [place] [address] October, [facility] [address] [id number] [address] [place] [address], [place] [address] October, [facility] [address] [id number] [address] [place] [address], [place] [address] October, [facility] [address] [id number] [address] [place] [address], [place] [address] October, [facility] [address] [id number] [address] [place] [address], [place] [address] October, [facility] [address] [id number] [address] [place] [address], [place] [address] October, [facility] [address] [id number] [address] [place] [address], [place] [address] October, [facility] [address] [id number] [address] [place] [address], [place] [address] Oct, [facility] [address] [id number] [address] [place] [address], [place] [address] Oct, [facility] [address] [id number] [address] [place] [address], [place] [address] Oct, [facility] [address] [id number] [address] [place] [address], [place] [address] Oct, [facility] [address] [id number] [address] [place] [address], [place] [address] Oct, [facility] [address] [id number] [address] [place] [address], [place] [address] 18 Oct, 2012 [facility] [address] [id number] [address] [place] [address], [place] [address] Oct, [facility] [address] [id number] [address] [place] [address], [place] [address] 15 Oct, 2012 [facility] [address] [id number] [address] [place] [address], [place] [address] Oct, [facility] [address] [id number] [address] [place] [address], [place] [address] Oct, [facility] [address] [id number] [address] [place] [address], [place] [address] Oct, [facility] [address] [id number] [address] [place] [address], [place] [address] Oct, [facility] [address] [id number] [address] [place] [address], [place] [address] Aug, [facility] [address] [id number] [address] [place] [address], [place] [address] Aug, [facility] [address] [id number] [address] [place] [address], [place] [address] Aug, [facility] [address] [id number] [address] [place] [address], [place] [address] Aug, [facility] [address] [id number] [address] [place] [address], [place] [address] 05 Aug, 2012 [facility] [address] [id number] [address] [place] [address], [place] [address] 05 Aug, 2012 [facility] [address] [id number] [address] [place] [address], [place] [address] 20 Aug, 2012 [facility] [address] [id number] [address] [place] [address], [place] [address] 14 Aug, 2012 [facility] [address] [id number] [address] [place] [address], [place] [address] Aug, [facility] [address] [id number] [address] [place] [address], [place] [address] Aug, [facility] [address] [id number] [address] [place] [address], [place] [address] Jul, [facility] [address] [id number] [address] [place] [address], [place] [address] 15 Jul, 2012 [facility] [address] [id number] [address] [place] [address], [place] [address] 08 Jul, 2012 [facility] [address] [id number] [address] [place] [address], [place] [address] 20 Jun, 2012 [facility] [address] [id number] [address] [place] [address], [place] [address] 18 Jun, 2012 [facility] [address] [id number] [address] [place] [address], [place] [address] 18 Jun, 2012 [facility] [address] [id number] [address] [place] [address], [place] [address] 18 Jun, 2012 [facility] [address] [id number] [address] [place] [address], [place] [address] 18 Jun, 2012 [facility] [address] [id number] [address] [place] [address], [place] [address] 14 Jun, 2012 [facility] [address] [id number] [address] [place] [address], [place] [address] 14 Jun, 2012 [facility] [address] [id number] [address] [place] [address], [place] [address] 13 Jun, 2012 [facility] [address] [id number] [address] [place] [address], [place] [address] 13 Jun, 2012 [facility] [address] [id number] [address] [place] [address], [place] [address] 11 Jun, 2012 [facility] [address] [id number] [address] [place] [address], [place] [address] 11 Jun, 2012 [facility] [address] [id number] [address] [place] [address], [place] [address] 11 Jun, 2012 [facility] [address] [id number] [address] [place] [address], [place] [address] 11 Jun, 2012 [facility] [address] [id number] [address] [place] [address], [place] [address] 07 Jun, 2012 [facility] [address] [id number] [address] [place] [address], [place] [address] Jun, [facility] [address] [id number] [address] [place] [address], [place] [address] Jun, [facility] [address] [id number] [address] [place] [address], [place] [address] Jun, [facility] [address] [id number] [address] [place] [address], [place] [address] Jun, [facility] [address] [id number] [address] [place] [address], [place] [address] Jun, [facility] [address] [id number] [address] [place] [address], [place] [address] Jun, [facility] [address] [id number] [address] [place] [address], [place] [address] Jun, [facility] [address] [id number] [address] [place] [address], [place] [address] Jun, [facility] [address] [id number] [address] [place] [address], [place] [address] Jun, [facility] [address] [id number] [address] [place] [address], [place] [address] May, [facility] [address] [id number] [address] [place] [address], [place] [address] May, [facility] [address] [id number] [address] [place] [address], [place] [address] May, [facility] [address] [id number] [address] [place] [address], [place] [address] May, [facility] [address] [id number] [address] [place] [address], [place] [address] May, [facility] [address] [id number] [address] [place] [address], [place] [address] May, [facility] [address] [id number] [address] [place] [address], [place] [address] May, [facility] [address] [id number] [address] [place] [address], [place] [address] May, [facility] [address] [id number] [address] [place] [address], [place] [address] Apr, [facility] [address] [id number] [address] [place] [address], [place] [address] Apr, [facility] [address] [id number] [address] [place] [address], [place] [address] Apr, [facility] [address] [id number] [address] [place] [address], [place] [address] Apr, [facility] [address] [id number] [address] [place] [address], [place] [address] Apr, [facility] [address] [id number] [address] [place] [address], [place] [address] Apr, [facility] [address] [id number] [address] [place] [address], [place] [address] Apr, [facility] [address] [id number] [address] [place] [address], [place] [address] Apr, [facility] [address] [id number] [address] [place] [address], [place] [address] Apr, [facility] [address] [id number] [address] [place] [address], [place] [address] Apr, [facility] [address] [id number] [address] [place] [address], [place] [address] Apr, [facility] [address] [id number] [address] [place] [address], [place] [address] Apr, [facility] [address] [id number] [address] [place] [address], [place] [address] Mar, [facility] [address] [id number] [address] [place] [id number] 18 Mar, 2012 [facility] [address] [id number] [address] [place] [address], [place] [address] Mar, [facility] [address] [id number] [address] [place] [address] Mar, [facility] [address] [id number] [address] [place] [id number] Mar, [facility] [address] [id number] [address] [place] [id number] Mar, [facility] [address] [id number] [address] [place] [address], [place] [address] Mar, [facility] [address] [id number] [address] [place] [id number] Jan, [facility] [address] [id number] [address] [place] [id number] Jan, [facility] [address] [id number] [address] [place] [id number] Jan, [facility] [address] [id number] [address] [place] [id number] Jan, [facility] [address] [id number] [address] [place] [id number] Jan, [facility] [address] [id number] [address] [place] [id number] Jan, [facility] [address] [id number] [address] [place] [id number] Jan, [facility] [address] [id number] [address] [place] [address], [place] [address] 14 Feb, 2012 [facility] [address] [id number] [address] [place] [id number] Jan, [facility] [address] [id number] [address] [place] [phone] Jan, [facility] [address] [id number] [address] [place] [address], [place] [address] Jan, [facility] [address] [id number] [address] [place] [address], [place] [address] Dec, [facility] [address] [id number] [address] [place] [address], [place] [address] Dec, [facility] [address] [id number] [address] [place] [address], [place] [address] Dec, [facility] [address] [id number] [address] [place] [address], [place] [address] Dec, [facility] [address] [id number] [address] [place] [address], [place] [address] Dec, [facility] [address] [id number] [address] [place] [address], [place] [address] Dec, [facility] [address] [id number] [address] [place] [address], [place] [address] Dec, [facility] [address] [id number] [address] [place] [address], [place] [address] 17 Jan, 2012 [facility] [address] [id number] [address] [place] [address], [place] [address] 16 Jan, 2012 [facility] [address] [id number] [address] [place] [address], [place] [address] Dec, [facility] [address] [id number] [address] [place] [address], [place] [address] Dec, [facility] [address] [id number] [address] [place] [address], [place] [address] Dec, [facility] [address] [id number] [address] [place] [address], [place] [address] Dec, [facility] [address] [id number] [address] [place] [address], [place] [address] Dec, [facility] [address] [id number] [address] [place] [address], [place] [address] Dec, [facility] [address] [id number] [address] [place] [address], [place] [address] Dec, [facility] [address] [id number] [address] [place] [address], [place] [address] Dec, [facility] [address] [id number] [address] [place] [address], [place] [address] Dec, [facility] [address] [id number] [address] [place] [address], [place] [address] Dec, [facility] [address] [id number] [address] [place] [address], [place] [address] October, [facility] [address] [id number] [address] [place] [address], [place] [address] October, [facility] [address] [id number] [address] [place] [address], [place] [address] October, [facility] [address] [id number] [address] [place] [address], [place] [address] October, [facility] [address] [id number] [address] [place] [address], [place] [address] October, [facility] [address] [id number] [address] [place] [address], [place] [address] October, [facility] [address] [id number] [address] [place] [address], [place] [address] Oct, [facility] [address] [id number] [address] [place] [address], [place] [address] Oct, [facility] [address] [id number] [address] [place] [address], [place] [address] Oct, [facility] [address] [id number] [address] [place] [address], [place] [address] Oct, [facility] [address] [id number] [address] [place] [address], [place] [address] Oct, [facility] [address] [id number] [address] [place] [address], [place] [address] Oct, [facility] [address] [id number] [address] [place] [address], [place] [address] Oct, [facility] [address] [id number] [address] [place] [address], [place] [address] 29 Sep, 2011 [facility] [address] [id number] [address] [place] [address], [place] [address] 29 Sep, 2011 [facility] [address] [id number] [address] [place] [address], [place] [address] Aug, [facility] [address] [id number] [address] [place] [address], [place] [address] Aug, [facility] [address] [id number] [address] [place] [address], [place] [address] Aug, [facility] [address] [id number] [address] [place] [address], [place] [address] Aug, [facility] [address] [id number] [address] [place] [address], [place] [address] Aug, [facility] [address] [id number] [address] [place] [address], [place] [address] Aug, [facility] [address] [id number] [address] [place] [address], [place] [address] Aug, [facility] [address] [id number] [address] [place] [address], [place] [address] Jul, [facility] [address] [id number] [address] [place] [address], [place] [address] Jul, [facility] [address] [id number] [address] [place] [address], [place] [address] Jul, [facility] [address] [id number] [address] [place] [address], [place] [address] Jul, [facility] [address] [id number] [address] [place] [address], [place] [address] Jun, [facility] [address] [id number] [address] [place] [address], [place] [address] Jun, [facility] [address] [id number] [address] [place] [address], [place] [address] May, [facility] [address] [id number] [address] [place] [address], [place] [address] May, [facility] [address] [id number] [address] [place] [address], [place] [address] May, [facility] [address] [id number] [address] [place] [address], [place] [address] May, [facility] [address] [id number] [address] [place] [address], [place] [address] May, [facility] [address] [id number] [address] [place] [address], [place] [address] Apr, [facility] [address] [id number] [address] [place] [address], [place] [address] Apr, [facility] [address] [id number] [address] [place] [address], [place] [address] Apr, [facility] [address] [id number] [address] [place] [address], [place] [address] 15 Jan, 2011 [facility] [address] [id number] [address] [place] [address], [place] [address] Dec, [facility] [address] [id number] [address] [place] [address], [place] [address] October, [facility] [address] [id number] [address] [place] [address], [place] [address] Jun, [facility] [address] [id number] [address] [place] [address], [place] [address] 23 Apr, 2009 [facility] [address] [id number] [address] [place] [address], [place] [address] 13 Apr, 2009 [facility] [address] [id number] [address] [place] [address], [place] [address] Apr, [facility] [address] [facility] [id number] [address] [place] [address] Jun, IMMUNIZATIONS No Known Immunizations SOCIAL HISTORY [...]
--- OUTSIDE RECORDS SUMMARY | 2020-01-25 12:44 | XMS REPORT ---
Author Author Ana Iraheta Organization [facility] Address [address] [place] [address] Care Team Providers Care Prorate Clerk Name Role Phone MELISA Iraheta Unavailable PROBLEMS Type Condition ICD9-CM Code [id number] Code Onset Dates Condition S tatus SNOMED Code Problem Attention deficit R41.840 Active 76 001671 Problem Chronic hepatitis C without hepatic coma B18.2 Active 965837831 Problem Cannabis abuse F12.10 Active 53898 009 Problem Bipolar disorder, in partial remission, most rec ent episode hypomanic F31.71 Active 791890405 Problem Attention deficit hyperactivity disorder (ADHD), combi luciano type F90.2 Active 83058244 Problem Bipolar 1 disorder F31.9 Active 3 08647599 Problem H/O laminectomy Z98.89 Active 1616 42006 Problem Other chronic pain G89.29 Active 8 4797970 Problem Anxiety disorder, unspecified type F41.9 Active 155020205 ALLERGIES No Information ENCOUNTERS Encounter Location Date Diagnosis [facility] [address] [facility] [id number] [address] [place] [phone] 08 Dec, 2018 [facility] [address] [facility] [id number] [address] [place] [phone] October, [facility] [address] [facility] [id number] [address] [place] [phone] October, [facility] [address] [facility] [id number] [address] [place] [phone] October, [facility] [address] [facility] [id number] [address] [place] [phone] October, Other chronic pain G89.29 an d Chronic hepatitis C without hepatic coma B18.2 [facility] [address] [facility] [id number] [address] [place] [phone] Aug, Bipolar disorder, in partial remission, most recent episode hypomanic F31.71 ; Attention deficit hyperactivity disorder (ADHD), combined type F90.2 and Anxiety disorder, unspecified type F41.9 [facility] [address] [id number] [address] [place] [phone] Aug, [facility] [address] [id number] [address] [place] [phone] Aug, Bipolar disorder, in partial remission, most recent episode hypomanic F31.71 [facility] [address] [id number] [address] [place] [phone] Aug, [facility] [address] [id number] [address] [place] [phone] Aug, Bipolar disorder, in partial remission, most recent episode hypomanic F31.71 [facility] [address] [id number] [address] [place] [phone] Aug, Bipolar disorder, in partial remission, most recent episode hypomanic F31.71 ; Attention deficit hyperactivity disorder (ADHD), combined type F90.2 and Anxiety disorder, unspecified type F41.9 [facility] [address] [id number] [address] [place] [phone] Aug, Low back pain M54.5 and Pain in left wrist M25.532 [facility] [address] [id number] [address] [place] [phone] Aug, [facility] [address] [id number] [address] [place] [phone] Jun, [facility] [address] [id number] [address] [place] [phone] Apr, Bipolar disorder, in partial remission, most recent episode hypomanic F31.71 [facility] [address] [id number] [address] [place] [phone] Apr, [facility] [address] [id number] [address] [place] [address] Apr, Bipolar disorder, in partial remission, most recent episode hypomanic F31.71 ; Attention deficit hyperactivity disorder (ADHD), combined type F90.2 ; Anxiety disorder, unspecified type F41.9 and Other care home (current) 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 Z79.899 [facility] [address] [id number] [address] [place] [phone] Apr, Bipolar disorder, in partial remission, most recent episode hypomanic F31.71 [facility] [address] [facility] [id number] [address] [place] [phone] Apr, Bipolar disorder, in partial remission, most recent episode hypomanic F31.71 [facility] [address] [id number] [address] [place] [phone] Mar, [facility] [address] [facility] [id number] [address] [place] [phone] Mar, Bipolar disorder, in partial remission, most recent episode hypomanic F31.71 ; Encounter for immunization Z23 and Low back pain M54.5 [facility] [address] [id number] [address] [place] [phone] Mar, Bipolar disorder, in partial remission, most recent episode hypomanic F31.71 [facility] [address] [id number] [address] [place] [phone] Mar, Bipolar disorder, in partial remission, most recent episode hypomanic F31.71 [facility] [address] [facility] [id number] [address] [place] [phone] Jan, Bipolar disorder, in partial remission, most recent episode hypomanic F31.71 [facility] [address] [facility] [id number] [address] [place] [phone] Jan, Bipolar disorder, in partial remission, most recent episode hypomanic F31.71 [facility] [address] [id number] [address] [place] [phone] Dec, Bipolar disorder, in partial remission, most recent episode hypomanic F31.71 [facility] [address] [id number] [address] [place] [address] Dec, Bipolar disorder, in partial remission, most recent episode hypomanic F31.71 ; Attention deficit hyperactivity disorder (ADHD), combined type F90.2 ; Anxiety disorder, unspecified type F41.9 and Other care home (current) 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 Z79.899 [facility] [address] [id number] [address] [place] [phone] Dec, Bipolar disorder, in partial remission, most recent episode hypomanic F31.71 [facility] [address] [id number] [address] [place] [phone] Dec, Bipolar disorder, in partial remission, most recent episode hypomanic F31.71 [facility] [address] [id number] [address] [place] [phone] October, Bipolar disorder, in partial remission, most recent episode hypomanic F31.71 [facility] [address] [id number] [address] [place] [phone] October, [facility] [address] [id number] [address] [place] [phone] October, [facility] [address] [id number] [address] [place] [phone] Oct, Bipolar disorder, in partial remission, most recent episode hypomanic F31.71 ; Attention deficit hyperactivity disorder (ADHD), combined type F90.2 ; Anxiety disorder, unspecified type F41.9 and Encounter for drug screening Z02.83 [facility] [address] [id number] [address] [place] [phone] Oct, Bipolar disorder, in partial remission, most recent episode hypomanic F31.71 [facility] [address] [id number] [address] [place] [phone] Oct, Bipolar disorder, in partial remission, most recent episode hypomanic F31.71 [facility] [address] [id number] [address] [place] [phone] Aug, Bipolar disorder, in partial remission, most recent episode hypomanic F31.71 [facility] [address] [id number] [address] [place] [phone] Aug, Bipolar disorder, in partial remission, most recent episode hypomanic F31.71 [facility] [address] [id number] [address] [place] [phone] Aug, Bipolar disorder, in partial remission, most recent episode hypomanic F31.71 [facility] [address] [id number] [address] [place] [phone] Jul, Bipolar disorder, in partial remission, most recent episode hypomanic F31.71 ; Attention deficit hyperactivity disorder (ADHD), combined type F90.2 and Anxiety disorder, unspecified type F41.9 [facility] [address] [facility] [id number] [address] [place] [phone] Jul, Bipolar disorder, in partial remission, most recent episode hypomanic F31.71 [facility] [address] [id number] [address] [place] [phone] Jun, Bipolar disorder, in partial remission, most recent episode hypomanic F31.71 [facility] [address] [facility] [id number] [address] [place] [phone] May, Bipolar disorder, in partial remission, most recent episode hypomanic F31.71 [facility] [address] [facility] [id number] [address] [place] [phone] May, Bipolar disorder, in partial remission, most recent episode hypomanic F31.71 [facility] [address] [facility] [id number] [address] [place] [phone] Apr, [facility] [address] [facility] [id number] [address] [place] [phone] Apr, Bipolar disorder, in partial remission, most recent episode hypomanic F31.71 ; Attention deficit hyperactivity disorder (ADHD), combined type F90.2 ; Anxiety disorder, unspecified type F41.9 and Cannabis abuse F12.10 [facility] [address] [facility] [id number] [address] [place] [phone] 13 Apr, 2017 Attention deficit hyperactiv ity disorder (ADHD), combined type F90.2 [facility] [address] [facility] [id number] [address] [place] [phone] 21 Mar, 2017 Attention deficit hyperactiv ity disorder (ADHD), combined type F90.2 [facility] [address] [facility] [id number] [address] [place] [phone] 14 Mar, 2017 Anxiety disorder, unspecifie d type F41.9 [facility] [address] [facility] [id number] [address] [place] [phone] Jan, Attention deficit hyperactiv ity disorder (ADHD), combined type F90.2 [place] [address] [place] [id number] [address] [place] [phone] Jan, Anxiety disorder, unspecifie d type F41.9 [facility] [address] [place] [id number] [address] [place] [phone] Jan, Other chronic pain G89.29 ; Chronic hepatitis C without hepatic coma B18.2 and Bipolar 1 disorder F31.9 [facility] [address] [place] [id number] [address] [place] [phone] Dec, Attention deficit hyperactiv ity disorder (ADHD), combined type F90.2 [facility] [address] [facility] [id number] [address] [place] [phone] Dec, Bipolar disorder, in partial remission, most recent episode hypomanic F31.71 ; Attention deficit hyperactivity disorder (ADHD), combined type F90.2 and Anxiety disorder, unspecified type F41.9 [facility] [address] [facility] [id number] [address] [place] [phone] Dec, Bipolar disorder, in partial remission, most recent episode hypomanic F31.71 ; Attention deficit hyperactivity disorder (ADHD), combined type F90.2 and Anxiety disorder, unspecified type F41.9 [facility] [address] [place] [id number] [address] [place] [phone] Dec, Bipolar 1 disorder F31.9 and Attention deficit R41.840 [facility] [address] [facility] [id number] [address] [place] [phone] Oct, Other chronic pain G89.29 ; Alopecia L65.9 and Screening, lipid Z13.220 [facility] [address] [facility] [id number] [address] [place] [phone] Oct, [facility] [address] [facility] [id number] [address] [place] [phone] Aug, [facility] [address] [place] [id number] [address] [place] [address] Aug, Eustachian tube dysfunction, right H69.81 ; Vertigo R42 and Other chronic pain G89.29 [facility] [address] [place] [id number] [address] [place] [phone] Aug, [facility] [address] [facility] [id number] [address] [place] [phone] Jun, [facility] [address] [facility] [id number] [address] [place] [phone] Jun, Low back pain M54.5 and Othe r chronic pain G89.29 [facility] [address] [facility] [id number] [address] [place] [phone] Jun, [facility] [address] [facility] [id number] [address] [place] [phone] May, [facility] [address] [facility] [id number] [address] [place] [phone] Jan, [facility] [address] [facility] [id number] [address] [place] [phone] Dec, [facility] [address] [facility] [id number] [address] [place] [phone] Dec, [facility] [address] [facility] [id number] [address] [place] [phone] Jun, [facility] [address] [id number] [address] [place] [phone] Apr, Eustachian tube dysfunction, unspecified laterality H69.80 ; Hot flashes N95.1 and Encounter for immunization Z23 [facility] [address] [facility] [id number] [address] [place] [phone] Jan, [facility] [address] [id number] [address] [place] [phone] Jan, [facility] [address] [id number] [address] [place] [phone] Jan, [facility] [address] [facility] [id number] [address] [place] [phone] Jan, [facility] [address] [facility] [id number] [address] [place] [phone] Jan, Encounter to establish care V65.8 ; Bipolar 1 disorder 296.7 ; Abdominal pain 789.00 ; Constipation 564.00 ; Hard of hearing 389.9 and Drug abuse 305.90 [facility] [address] [facility] [id number] [address] [place] [phone] Dec, [facility] [address] [facility] [id number] [address] [place] [phone] October, [facility] [address] [facility] [id number] [address] [place] [phone] October, [facility] [address] [id number] [address] [place] [phone] Oct, [facility] [address] [facility] [id number] [address] [place] [phone] Oct, [facility] [address] [facility] [id number] [address] [place] [phone] Oct, [facility] [address] [facility] [id number] [address] [place] [phone] Aug, [facility] [address] [id number] [address] [place] [address], [place] [phone] Aug, [facility] [address] [id number] [address] [place] [address], [place] [phone] Aug, [facility] [address] [id number] [address] [place] [address], [place] [phone] Aug, 2014 [facility] [address] [id number] [address] [place] [address], [place] [phone] Aug, 2014 [facility] [address] [id number] [address] [place] [address], [place] [phone] Aug, 2014 [facility] [address] [id number] [address] [place] [address], [place] [phone] Aug, 2014 [facility] [address] [id number] [address] [place] [address], [place] [phone] Aug, 2014 [facility] [address] [id number] [address] [place] [address], [place] [phone] Aug, 2014 [facility] [address] [id number] [address] [place] [address], [place] [address] Aug, 2014 [facility] [address] [id number] [address] [place] [address], [place] [address] Aug, 2014 [facility] [address] [id number] [address] [place] [address], [place] [address] Aug, 2014 [facility] [address] [id number] [address] [place] [address], [place] [address] Aug, 2014 [facility] [address] [id number] [address] [place] [address], [place] [address] Aug, 2014 [facility] [address] [id number] [address] [place] [address], [place] [phone] Aug, 2014 [facility] [address] [id number] [address] [place] [address], [place] [address] Jul, [facility] [address] [id number] [address] [place] [address], [place] [address] Jul, [facility] [address] [id number] [address] [place] [address], [place] [address] Jul, [facility] [address] [id number] [address] [place] [address], [place] [address] Jul, [facility] [address] [id number] [address] [place] [address], [place] [address] Jul, [facility] [address] [id number] [address] [place] [address], [place] [phone] Jul, [facility] [address] [id number] [address] [place] [address], [place] [address] Jul, [facility] [address] [id number] [address] [place] [address], [place] [address] Jul, [facility] [address] [id number] [address] [place] [address], [place] [address] Jun, [facility] [address] [id number] [address] [place] [address], [place] [address] Jun, [facility] [address] [id number] [address] [place] [address], [place] [address] Jun, [facility] [address] [id number] [address] [place] [address], [place] [address] Jun, [facility] [address] [id number] [address] [place] [address], [place] [phone] Jun, [facility] [address] [id number] [address] [place] [address], [place] [phone] Jun, [facility] [address] [id number] [address] [place] [address], [place] [address] Jun, [facility] [address] [id number] [address] [place] [address], [place] [address] Jun, [facility] [address] [id number] [address] [place] [address], [place] [address] Jun, [facility] [address] [id number] [address] [place] [address], [place] [address] Jun, [facility] [address] [id number] [address] [place] [address], [place] [address] Jun, [facility] [address] [id number] [address] [place] [address], [place] [address] May, [facility] [address] [id number] [address] [place] [address], [place] [address] May, [facility] [address] [id number] [address] [place] [address], [place] [address] May, [facility] [address] [id number] [address] [place] [address], [place] [address] May, [facility] [address] [id number] [address] [place] [address], [place] [address] May, [facility] [address] [id number] [address] [place] [address], [place] [address] May, [facility] [address] [id number] [address] [place] [address], [place] [address] May, [facility] [address] [id number] [address] [place] [address], [place] [address] Apr, [facility] [address] [id number] [address] [place] [address], [place] [id number] Apr, [facility] [address] [id number] [address] [place] [id number] Apr, [facility] [address] [id number] [address] [place] [address], [place] [address] Apr, [facility] [address] [id number] [address] [place] [address], [place] [address] Apr, [facility] [address] [id number] [address] [place] [address], [place] [id number] Apr, [facility] [address] [id number] [address] [place] [address], [place] [id number] 29 Mar, 2013 [facility] [address] [id number] [address] [place] [address], [place] [id number] 29 Mar, 2013 [facility] [address] [id number] [address] [place] [address], [place] [address] Mar, [facility] [address] [id number] [address] [place] [address], [place] [address] Mar, [facility] [address] [id number] [address] [place] [address], [place] [address] Mar, [facility] [address] [id number] [address] [place] [address], [place] [address] Mar, [facility] [address] [id number] [address] [place] [address], [place] [address] Jan, [facility] [address] [id number] [address] [place] [address], [place] [address] Jan, [facility] [address] [id number] [address] [place] [address], [place] [address] Jan, [facility] [address] [id number] [address] [place] [address], [place] [address] Jan, [facility] [address] [id number] [address] [place] [address], [place] [id number] Dec, [facility] [address] [id number] [address] [place] [address], [place] [address] Dec, [facility] [address] [id number] [address] [place] [address], [place] [address] Dec, [facility] [address] [id number] [address] [place] [address], [place] [address] Dec, [facility] [address] [id number] [address] [place] [address], [place] [address] Dec, [facility] [address] [id number] [address] [place] [address], [place] [address] Dec, [facility] [address] [id number] [facility] [place] [address] Dec, [facility] [address] [id number] [address] [place] [address], [place] [address] Dec, [facility] [address] [id number] [address] [place] [address], [place] [address] Dec, [facility] [facility] [address] [id number] [address] [place] [address], [place] [address] Dec, [facility] [address] [id number] [address] [place] [address], [place] [address] Dec, [facility] [address] [id number] [address] [place] [address], [place] [address] Dec, [facility] [address] [id number] [address] [place] [address], [place] [address] October, [facility] [address] [id number] [address] [place] [address], [place] [address] October, [facility] [address] [id number] [address] [place] [address], [place] [address] October, [facility] [address] [id number] [address] [place] [address], [place] [address] October, [facility] [address] [id number] [address] [place] [address], [place] [address] October, [facility] [address] [id number] [address] [place] [address], [place] [address] October, [facility] [address] [id number] [address] [place] [address], [place] [address] Oct, [facility] [address] [id number] [address] [place] [address], [place] [address] Oct, [facility] [address] [id number] [address] [place] [address], [place] [address] Oct, [facility] [address] [id number] [address] [place] [address], [place] [address] Oct, [facility] [address] [id number] [facility] [place] [address] Oct, [facility] [address] [id number] [address] [place] [address], [place] [address] Oct, [facility] [address] [id number] [address] [place] [address], [place] [address] Oct, [facility] [address] [id number] [address] [place] [address], [place] [address] Oct, [facility] [address] [id number] [address] [place] [address], [place] [address] Oct, [facility] [address] [id number] [address] [place] [address], [place] [address] Oct, [facility] [address] [id number] [address] [place] [address], [place] [address] Oct, [facility] [address] [id number] [address] [place] [address], [place] [address] Oct, [facility] [address] [id number] [address] [place] [address], [place] [address] Aug, [facility] [address] [id number] [address] [place] [address], [place] [address] Aug, [facility] [address] [id number] [address] [place] [address], [place] [address] Aug, [facility] [address] [id number] [address] [place] [address], [place] [address] Aug, [facility] [address] [id number] [address] [place] [address], [place] [address] 05 Aug, 2013 [facility] [address] [id number] [address] [place] [address], [place] [address] 05 Aug, 2013 [facility] [address] [id number] [address] [place] [address], [place] [address] Aug, [facility] [address] [id number] [address] [place] [address], [place] [address] Aug, [facility] [address] [id number] [address] [place] [address], [place] [address] Aug, [facility] [address] [id number] [address] [place] [address], [place] [address] Aug, [facility] [address] [id number] [address] [place] [address], [place] [address] 24 Aug, 2013 [facility] [address] [id number] [address] [place] [address], [place] [address] Aug, [facility] [address] [id number] [address] [place] [address], [place] [address] Aug, [facility] [address] [id number] [address] [place] [address], [place] [address] 20 Aug, 2013 [facility] [address] [id number] [address] [place] [address], [place] [address] 14 Aug, 2013 [facility] [address] [id number] [address] [place] [address], [place] [address] Aug, [facility] [address] [id number] [address] [place] [address], [place] [address] Aug, [facility] [address] [id number] [address] [place] [address], [place] [address] Aug, [facility] [address] [id number] [address] [place] [address], [place] [address] Aug, [facility] [address] [id number] [address] [place] [address], [place] [address] Aug, [facility] [address] [id number] [address] [place] [address], [place] [address] Aug, [facility] [address] [id number] [address] [place] [address], [place] [address] Aug, [facility] [address] [id number] [address] [place] [address], [place] [address] Aug, [facility] [address] [id number] [address] [place] [address], [place] [address] Aug, [facility] [address] [id number] [address] [place] [address], [place] [address] Aug, [facility] [address] [id number] [address] [place] [address], [place] [address] Jul, [facility] [address] [id number] [address] [place] [address], [place] [address] Jul, [facility] [address] [id number] [address] [place] [address], [place] [address] Jul, [facility] [address] [id number] [address] [place] [address], [place] [address] Jul, [facility] [address] [id number] [address] [place] [address], [place] [address] Jul, [facility] [address] [id number] [address] [place] [address], [place] [address] Jul, [facility] [address] [id number] [address] [place] [address], [place] [address] Jul, [facility] [address] [id number] [address] [place] [address], [place] [address] Jul, [facility] [address] [id number] [address] [place] [address], [place] [address] Jul, [facility] [address] [id number] [address] [place] [address], [place] [address] Jul, [facility] [address] [id number] [address] [place] [address], [place] [address] Jul, [facility] [address] [id number] [address] [place] [address], [place] [address] Jul, [facility] [address] [id number] [address] [place] [address], [place] [address] Jul, [facility] [address] [id number] [address] [place] [address], [place] [address] Jul, [facility] [address] [id number] [address] [place] [address], [place] [address] Jul, [facility] [address] [id number] [address] [place] [address], [place] [address] Jul, [facility] [address] [id number] [address] [place] [address], [place] [address] Jul, [facility] [address] [id number] [address] [place] [address], [place] [address] Jul, [facility] [address] [id number] [address] [place] [address], [place] [address] Jul, [facility] [address] [id number] [address] [place] [address], [place] [address] Jul, [facility] [address] [id number] [address] [place] [address], [place] [address] Jun, [facility] [address] [id number] [address] [place] [address], [place] [address] Jun, [facility] [address] [id number] [address] [place] [address], [place] [address] Jun, [facility] [address] [id number] [address] [place] [address], [place] [address] Jun, [facility] [address] [id number] [address] [place] [address], [place] [address] Jun, [facility] [address] [id number] [address] [place] [address], [place] [address] Jun, [facility] [address] [id number] [address] [place] [address], [place] [address] Jun, [facility] [address] [id number] [address] [place] [address], [place] [address] Jun, [facility] [address] [id number] [address] [place] [address], [place] [address] 24 Jun, 2013 [facility] [address] [id number] [address] [place] [address], [place] [address] Jun, [facility] [address] [id number] [address] [place] [address], [place] [address] Jun, [facility] [address] [id number] [address] [place] [address], [place] [address] Jun, [facility] [address] [id number] [address] [place] [address], [place] [address] Jun, [facility] [address] [id number] [address] [place] [address], [place] [address] Jun, [facility] [address] [id number] [address] [place] [address], [place] [address] Jun, [facility] [address] [id number] [address] [place] [address], [place] [address] 18 Jun, 2013 [facility] [address] [id number] [address] [place] [address], [place] [address] 18 Jun, 2013 [facility] [address] [id number] [address] [place] [address], [place] [address] 17 Jun, 2013 [facility] [address] [id number] [address] [place] [address], [place] [address] 17 Jun, 2013 [facility] [address] [id number] [address] [place] [address], [place] [address] 13 Jun, 2013 [facility] [address] [id number] [address] [place] [address], [place] [address] 12 Jun, 2013 [facility] [address] [id number] [address] [place] [address], [place] [address] 12 Jun, 2013 [facility] [address] [id number] [address] [place] [address], [place] [address] 09 Jun, 2013 [facility] [address] [id number] [address] [place] [address], [place] [address] 05 Jun, 2013 [facility] [address] [id number] [address] [place] [address], [place] [address] 05 Jun, 2013 [facility] [address] [id number] [address] [place] [address], [place] [address] Jun, [facility] [address] [id number] [address] [place] [address], [place] [address] Jun, [facility] [address] [id number] [address] [place] [address], [place] [address] May, [facility] [address] [id number] [address] [place] [address], [place] [address] May, [facility] [address] [id number] [address] [place] [address], [place] [address] May, [facility] [address] [id number] [address] [place] [address], [place] [address] May, [facility] [address] [id number] [address] [place] [address], [place] [address] May, [facility] [address] [id number] [address] [place] [address], [place] [address] May, [facility] [address] [id number] [address] [place] [address], [place] [address] Apr, [facility] [address] [id number] [address] [place] [address], [place] [address] 30 Apr, 2013 [facility] [address] [id number] [address] [place] [address], [place] [address] 30 Apr, 2013 [facility] [address] [id number] [address] [place] [address], [place] [address] 30 Apr, 2013 [facility] [address] [id number] [address] [place] [address], [place] [address] Apr, [facility] [address] [id number] [address] [place] [address], [place] [address] 15 Apr, 2013 [facility] [address] [id number] [address] [place] [address], [place] [address] 15 Apr, 2013 [facility] [address] [id number] [address] [place] [address], [place] [address] Apr, [facility] [address] [id number] [address] [place] [address], [place] [address] 26 Mar, 2012 [facility] [address] [id number] [address] [place] [address], [place] [address] 24 Mar, 2012 [facility] [address] [id number] [address] [place] [address], [place] [address] 17 Mar, 2012 [facility] [address] [id number] [address] [place] [address], [place] [address] 17 Mar, 2012 [facility] [address] [id number] [address] [place] [address], [place] [address] 11 Mar, 2013 [facility] [address] [id number] [address] [place] [address], [place] [address] 10 Mar, 2012 [facility] [address] [id number] [address] [place] [address], [place] [address] 05 Mar, 2013 [facility] [address] [id number] [address] [place] [address], [place] [address] 04 Mar, 2013 [facility] [address] [id number] [address] [place] [address], [place] [address] 20 Jan, 2013 [facility] [address] [id number] [address] [place] [address], [place] [address] Jan, [facility] [address] [id number] [address] [place] [address], [place] [address] 14 Jan, 2013 [facility] [address] [id number] [address] [place] [address], [place] [address] Jan, [facility] [address] [id number] [address] [place] [address], [place] [address] Jan, [facility] [address] [id number] [address] [place] [address], [place] [address] 05 Jan, 2013 [facility] [address] [id number] [address] [place] [address], [place] [address] 31 Dec, 2012 [facility] [address] [id number] [address] [place] [address], [place] [address] 24 Dec, 2012 [facility] [address] [id number] [address] [place] [address], [place] [address] 22 Dec, 2012 [facility] [address] [id number] [address] [place] [address], [place] [address] 19 Dec, 2012 [facility] [address] [id number] [address] [place] [address], [place] [address] 18 Dec, 2012 [facility] [address] [id number] [address] [place] [address], [place] [address] 17 Dec, 2012 [facility] [address] [id number] [address] [place] [address], [place] [address] 16 Dec, 2012 [facility] [address] [id number] [address] [place] [address], [place] [address] 16 Dec, 2012 [facility] [address] [id number] [address] [place] [address], [place] [address] 15 Dec, 2012 [facility] [address] [id number] [address] [place] [address], [place] [address] 10 Dec, 2012 [facility] [address] [id number] [address] [place] [address], [place] [address] 28 Dec, 2012 [facility] [address] [id number] [address] [place] [address], [place] [address] 25 Dec, 2012 [facility] [address] [id number] [address] [place] [address], [place] [address] 19 Dec, 2012 [facility] [address] [id number] [address] [place] [address], [place] [address] 17 Dec, 2012 [facility] [address] [id number] [address] [place] [address], [place] [address] 13 Dec, 2012 [facility] [address] [id number] [address] [place] [address], [place] [address] 11 Dec, 2012 [facility] [address] [id number] [address] [place] [address], [place] [address] October, [facility] [address] [id number] [address] [place] [address], [place] [address] October, [facility] [address] [id number] [address] [place] [address], [place] [address] October, [facility] [address] [id number] [address] [place] [address], [place] [address] October, [facility] [address] [id number] [address] [place] [address], [place] [address] October, [facility] [address] [id number] [address] [place] [address], [place] [address] October, [facility] [address] [id number] [address] [place] [address], [place] [address] October, [facility] [address] [id number] [address] [place] [address], [place] [address] Oct, [facility] [address] [id number] [address] [place] [address], [place] [address] Oct, [facility] [address] [id number] [address] [place] [address], [place] [address] Oct, [facility] [address] [id number] [address] [place] [address], [place] [address] Oct, [facility] [address] [id number] [address] [place] [address], [place] [address] Oct, [facility] [address] [id number] [address] [place] [address], [place] [address] 18 Oct, 2012 [facility] [address] [id number] [address] [place] [address], [place] [address] 17 Oct, 2012 [facility] [address] [id number] [address] [place] [address], [place] [address] 15 Oct, 2012 [facility] [address] [id number] [address] [place] [address], [place] [address] Oct, [facility] [address] [id number] [address] [place] [address], [place] [address] Oct, [facility] [address] [id number] [address] [place] [address], [place] [address] Oct, [facility] [address] [id number] [address] [place] [address], [place] [address] Oct, [facility] [address] [id number] [address] [place] [address], [place] [address] Aug, [facility] [address] [id number] [address] [place] [address], [place] [address] Aug, [facility] [address] [id number] [address] [place] [address], [place] [address] Aug, [facility] [address] [id number] [address] [place] [address], [place] [address] Aug, [facility] [address] [id number] [address] [place] [address], [place] [address] Aug, [facility] [address] [id number] [address] [place] [address], [place] [address] Aug, [facility] [address] [id number] [address] [place] [address], [place] [address] Aug, [facility] [address] [id number] [address] [place] [address], [place] [address] Aug, [facility] [address] [id number] [address] [place] [address], [place] [address] Aug, [facility] [address] [id number] [address] [place] [address], [place] [address] Aug, [facility] [address] [id number] [address] [place] [address], [place] [address] Jul, [facility] [address] [id number] [address] [place] [address], [place] [address] Jul, [facility] [address] [id number] [address] [place] [address], [place] [id number] 08 Jul, 2012 [facility] [address] [id number] [address] [place] [address], [place] [address] 20 Jun, 2012 [facility] [address] [id number] [address] [place] [address], [place] [id number] 18 Jun, 2012 [facility] [address] [id number] [address] [place] [address], [place] [id number] 18 Jun, 2012 [facility] [address] [id number] [address] [place] [address], [place] [address] 18 Jun, 2012 [facility] [address] [id number] [address] [place] [address], [place] [id number] 18 Jun, 2012 [facility] [address] [id number] [address] [place] [address], [place] [id number] 14 Jun, 2012 [facility] [address] [id number] [address] [place] [address], [place] [address] 14 Jun, 2012 [facility] [address] [id number] [address] [place] [address], [place] [id number] 13 Jun, 2012 [facility] [address] [id number] [address] [place] [address], [place] [id number] 13 Jun, 2012 [facility] [address] [id number] [address] [place] [address], [place] [id number] 11 Jun, 2012 [facility] [address] [id number] [address] [place] [address], [place] [id number] 11 Jun, 2012 [facility] [address] [id number] [address] [place] [address], [place] [address] 11 Jun, 2012 [facility] [address] [id number] [address] [place] [address], [place] [address] 11 Jun, 2012 [facility] [address] [id number] [address] [place] [address], [place] [address] 07 Jun, 2012 [facility] [address] [id number] [address] [place] [address], [place] [id number] Jun, [facility] [address] [id number] [address] [place] [address], [place] [address] Jun, [facility] [address] [id number] [address] [place] [address], [place] [address] Jun, [facility] [address] [id number] [address] [place] [address], [place] [address] Jun, [facility] [address] [id number] [address] [place] [address], [place] [address] Jun, [facility] [address] [id number] [address] [place] [address], [place] [address] Jun, [facility] [address] [id number] [address] [place] [address], [place] [address] Jun, [facility] [address] [id number] [address] [place] [address], [place] [address] Jun, [facility] [address] [id number] [address] [place] [address], [place] [address] Jun, [facility] [address] [id number] [address] [place] [address], [place] [address] May, [facility] [address] [id number] [address] [place] [address], [place] [address] May, [facility] [address] [id number] [address] [place] [address], [place] [address] May, [facility] [address] [id number] [address] [place] [address], [place] [address] May, [facility] [address] [id number] [address] [place] [address], [place] [address] May, [facility] [address] [id number] [address] [place] [address], [place] [address] May, [facility] [address] [id number] [address] [place] [address], [place] [address] May, [facility] [address] [id number] [address] [place] [id number] May, [facility] [address] [id number] [address] [place] [address], [place] [address] 30 Apr, 2012 [facility] [address] [id number] [address] [place] [id number] 30 Apr, 2012 [facility] [address] [id number] [address] [place] [address], [place] [address] 29 Apr, 2012 [facility] [address] [id number] [address] [place] [id number] Apr, [facility] [address] [id number] [address] [place] [address], [place] [id number] Apr, [facility] [address] [id number] [address] [place] [id number] Apr, [facility] [address] [id number] [address] [place] [id number] Apr, [facility] [address] [id number] [address] [place] [id number] Apr, [facility] [address] [id number] [address] [place] [id number] Apr, [facility] [address] [id number] [address] [place] [id number] 08 Apr, 2012 [facility] [address] [id number] [address] [place] [address] [id number] 04 Apr, 2012 [facility] [address] [id number] [address] [place] [id number] 02 Apr, 2012 [facility] [address] [id number] [address] [place] [id number] 19 Mar, 2012 [facility] [address] [id number] [address] [place] [id number] 18 Mar, 2012 [facility] [address] [id number] [address] [place] [phone] 12 Mar, 2012 [facility] [address] [id number] [address] [place] [address], [place] [id number] Mar, [facility] [address] [id number] [address] [place] [id number] Mar, [facility] [address] [id number] [address] [place] [address], [place] [id number] Mar, [facility] [address] [id number] [address] [place] [address], [place] [phone] Mar, [facility] [address] [id number] [address] [place] [address], [place] [phone] Jan, [facility] [address] [id number] [address] [place] [address], [place] [phone] Jan, [facility] [address] [id number] [address] [place] [address], [place] [id number] Jan, [facility] [address] [id number] [address] [place] [id number] Jan, [facility] [address] [id number] [address] [place] [address], [place] [phone] Jan, [facility] [address] [id number] [address] [place] [address], [place] [phone] Jan, [facility] [address] [id number] [address] [place] [address], [place] [phone] Jan, [facility] [address] [id number] [address] [place] [address], [place] [phone] Jan, [facility] [address] [id number] [address] [place] [address], [place] [phone] Jan, [facility] [address] [id number] [address] [place] [address], [place] [phone] Jan, [facility] [address] [id number] [address] [place] [address], [place] [phone] Jan, [facility] [address] [id number] [address] [place] [address], [place] [id number] Dec, [facility] [address] [id number] [address] [place] [address], [place] [phone] 27 Jan, 2012 [facility] [address] [id number] [address] [place] [address], [place] [phone] Dec, [facility] [address] [id number] [address] [place] [address], [place] [phone] 26 Jan, 2012 [facility] [address] [id number] [address] [place] [address], [place] [id number] 20 Jan, 2012 [facility] [address] [id number] [address] [place] [address], [place] [id number] 19 Jan, 2012 [facility] [address] [id number] [address] [place] [address], [place] [id number] 18 Jan, 2012 [facility] [address] [id number] [address] [place] [address], [place] [id number] 17 Jan, 2012 [facility] [address] [id number] [address] [place] [address], [place] [id number] 16 Jan, 2012 [facility] [address] [id number] [address] [place] [address], [place] [id number] Dec, [facility] [address] [id number] [address] [place] [address], [place] [phone] Dec, [facility] [address] [id number] [address] [place] [address], [place] [id number] Dec, [facility] [address] [id number] [address] [place] [address], [place] [id number] Dec, [facility] [address] [id number] [address] [place] [address], [place] [phone] Dec, [facility] [address] [id number] [address] [place] [address], [place] [phone] Dec, [facility] [address] [id number] [address] [place] [address], [place] [id number] 18 Dec, 2011 [facility] [address] [id number] [address] [place] [address], [place] [phone] Dec, [facility] [address] [id number] [address] [place] [address], [place] [id number] Dec, [facility] [address] [id number] [address] [place] [address], [place] [phone] Dec, [facility] [address] [id number] [address] [place] [address], [place] [phone] October, [facility] [address] [id number] [address] [place] [address], [place] [phone] October, [facility] [address] [id number] [address] [place] [address], [place] [id number] October, [facility] [address] [id number] [address] [place] [address], [place] [phone] October, [facility] [address] [id number] [address] [place] [address], [place] [phone] October, [facility] [address] [id number] [address] [place] [address], [place] [phone] October, [facility] [address] [id number] [address] [place] [address], [place] [phone] Oct, [facility] [address] [id number] [address] [place] [address], [place] [id number] Oct, [facility] [address] [id number] [address] [place] [address], [place] [phone] Oct, [facility] [address] [id number] [address] [place] [address], [place] [phone] Oct, [facility] [address] [id number] [address] [place] [address], [place] [phone] Oct, [facility] [address] [id number] [address] [place] [address], [place] [phone] Oct, [facility] [address] [id number] [address] [place] [address], [place] [phone] Oct, [facility] [address] [id number] [address] [place] [address], [place] [phone] 29 Sep, 2011 [facility] [address] [id number] [address] [place] [address], [place] [id number] 29 Sep, 2011 [facility] [address] [id number] [address] [place] [address], [place] [id number] 19 Sep, 2011 [facility] [address] [id number] [address] [place] [address], [place] [id number] 13 Sep, 2011 [facility] [address] [id number] [address] [place] [address], [place] [id number] 05 Sep, 2011 [facility] [address] [id number] [address] [place] [address], [place] [id number] 05 Sep, 2011 [facility] [address] [id number] [address] [place] [address], [place] [id number] 27 Aug, 2011 [facility] [address] [id number] [address] [place] [address], [place] [id number] 20 Aug, 2011 [facility] [address] [id number] [address] [place] [address], [place] [phone] 08 Aug, 2011 [facility] [address] [id number] [address] [place] [address], [place] [id number] 31 Jul, 2011 [facility] [address] [id number] [address] [place] [address], [place] [id number] Jul, [facility] [address] [id number] [address] [place] [address], [place] [phone] Jul, [facility] [address] [id number] [address] [place] [address], [place] [phone] Jul, [facility] [address] [id number] [address] [place] [address], [place] [id number] 28 Jun, 2011 [facility] [address] [id number] [address] [place] [address], [place] [phone] 12 Jun, 2011 [facility] [address] [id number] [address] [place] [address], [place] [address] May, [facility] [address] [id number] [address] [place] [phone] May, [facility] [address] [id number] [address] [place] [phone] May, [facility] [address] [id number] [address] [place] [phone] May, [facility] [address] [id number] [address] [place] [phone] May, [facility] [address] [id number] [address] [place] [phone] Apr, [facility] [address] [id number] [address] [place] [phone] Apr, [facility] [address] [id number] [address] [place] [phone] Apr, [facility] [address] [id number] [address] [place] [phone] Jan, [facility] [address] [id number] [address] [place] [phone] Dec, [facility] [address] [id number] [address] [place] [phone] October, [facility] [address] [id number] [address] [place] [phone] Jun, [facility] [address] [id number] [address] [place] [phone] Apr, [facility] [address] [id number] [address] [place] [phone] Apr, [facility] [address] [id number] [address] [place] [phone] Apr, [facility] [address] [id number] [address] [place] [phone] Jun, IMMUNIZATIONS No Known Immunizations SOCIAL HISTORY [...]
--- OUTSIDE RECORDS SUMMARY | 2020-01-25 12:44 | XMS REPORT ---
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 Name Role Phone MELISA Iraheta Unavailable PROBLEMS Type Condition ICD9-CM Code [id number] Code Onset Dates Condition S tatus SNOMED Code Problem Attention deficit R41.840 Active 76 798961 Problem Chronic hepatitis C without hepatic coma B18.2 Active 593159201 Problem Cannabis abuse F12.10 Active 67319 009 Problem Bipolar disorder, in partial remission, most rec ent episode hypomanic F31.71 Active 351162519 Problem Attention deficit hyperactivity disorder (ADHD), combi luciano type F90.2 Active 98823261 Problem Bipolar 1 disorder F31.9 Active 3 34790200 Problem H/O laminectomy Z98.89 Active 1616 14098 Problem Other chronic pain G89.29 Active 8 4734974 Problem Anxiety disorder, unspecified type F41.9 Active [id number] ALLERGIES No Information ENCOUNTERS Encounter Location Date Diagnosis [place] [address] [facility] [id number] [address] [place] [address] Dec, Other chronic pain G89.29 an d Low back pain M54.5 [facility] [address] [facility] [id number] [address] [place] [address] October, [facility] [address] [facility] [id number] [address] [place] [address] October, [facility] [address] [facility] [id number] [address] [place] [address] October, [facility] [address] [facility] [id number] [address] [place] [address] October, Other chronic pain G89.29 an d Chronic hepatitis C without hepatic coma B18.2 [facility] [address] [id number] [address] [place] [address] Aug, Bipolar disorder, in partial remission, most recent episode hypomanic F31.71 ; Attention deficit hyperactivity disorder (ADHD), combined type F90.2 and Anxiety disorder, unspecified type F41.9 [facility] [address] [id number] [address] [place] [address] Aug, [facility] [address] [id number] [address] [place] [address] Aug, Bipolar disorder, in partial remission, most recent episode hypomanic F31.71 [facility] [address] [id number] [address] [place] [address] Aug, [facility] [address] [id number] [address] [place] [address] Aug, Bipolar disorder, in partial remission, most recent episode hypomanic F31.71 [facility] [address] [id number] [address] [place] [address] Aug, Bipolar disorder, in partial remission, most recent episode hypomanic F31.71 ; Attention deficit hyperactivity disorder (ADHD), combined type F90.2 and Anxiety disorder, unspecified type F41.9 [facility] [address] [id number] [address] [place] [address] Aug, Low back pain M54.5 and Pain in left wrist M25.532 [facility] [address] [id number] [address] [place] [address] Aug, [facility] [address] [id number] [address] [place] [address] Jun, [facility] [address] [id number] [address] [place] [address] Apr, Bipolar disorder, in partial remission, most recent episode hypomanic F31.71 [facility] [address] [id number] [address] [place] [address] Apr, [facility] [address] [id number] [address] [place] [address] Apr, Bipolar disorder, in partial remission, most recent episode hypomanic F31.71 ; Attention deficit hyperactivity disorder (ADHD), combined type F90.2 ; Anxiety disorder, unspecified type F41.9 and Other long-term (current) 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 Z79.899 [facility] [address] [id number] [address] [place] [address] Apr, Bipolar disorder, in partial remission, most recent episode hypomanic F31.71 [facility] [address] [id number] [address] [place] [address] Apr, Bipolar disorder, in partial remission, most recent episode hypomanic F31.71 [facility] [address] [id number] [address] [place] [address] Mar, [facility] [address] [id number] [address] [place] [address] Mar, Bipolar disorder, in partial remission, most recent episode hypomanic F31.71 ; Encounter for immunization Z23 and Low back pain M54.5 [facility] [address] [id number] [address] [place] [address] Mar, Bipolar disorder, in partial remission, most recent episode hypomanic F31.71 [facility] [address] [id number] [address] [place] [address] Mar, Bipolar disorder, in partial remission, most recent episode hypomanic F31.71 [facility] [address] [id number] [address] [place] [address] Jan, Bipolar disorder, in partial remission, most recent episode hypomanic F31.71 [facility] [address] [id number] [address] [place] [address] Jan, Bipolar disorder, in partial remission, most recent episode hypomanic F31.71 [facility] [address] [id number] [address] [place] [address] Dec, Bipolar disorder, in partial remission, most recent episode hypomanic F31.71 [facility] [address] [id number] [address] [place] [address] Dec, Bipolar disorder, in partial remission, most recent episode hypomanic F31.71 ; Attention deficit hyperactivity disorder (ADHD), combined type F90.2 ; Anxiety disorder, unspecified type F41.9 and 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 [facility] [address] [id number] [address] [place] [address] Dec, Bipolar disorder, in partial remission, most recent episode hypomanic F31.71 [facility] [address] [id number] [address] [place] [address] Dec, Bipolar disorder, in partial remission, most recent episode hypomanic F31.71 [facility] [address] [id number] [address] [place] [address] October, Bipolar disorder, in partial remission, most recent episode hypomanic F31.71 [facility] [address] [id number] [address] [place] [address] October, [facility] [address] [id number] [address] [place] [address] October, [facility] [address] [id number] [address] [place] [address] Oct, Bipolar disorder, in partial remission, most recent episode hypomanic F31.71 ; Attention deficit hyperactivity disorder (ADHD), combined type F90.2 ; Anxiety disorder, unspecified type F41.9 and Encounter for drug screening Z02.83 [facility] [address] [id number] [address] [place] [address] Oct, Bipolar disorder, in partial remission, most recent episode hypomanic F31.71 [facility] [address] [id number] [address] [place] [address] Oct, Bipolar disorder, in partial remission, most recent episode hypomanic F31.71 [facility] [address] [id number] [address] [place] [address] Aug, Bipolar disorder, in partial remission, most recent episode hypomanic F31.71 [facility] [address] [id number] [address] [place] [address] 15 Aug, 2017 Bipolar disorder, in partial remission, most recent episode hypomanic F31.71 [facility] [address] [id number] [address] [place] [address] Aug, Bipolar disorder, in partial remission, most recent episode hypomanic F31.71 [facility] [address] [id number] [address] [place] [address] Jul, Bipolar disorder, in partial remission, most recent episode hypomanic F31.71 ; Attention deficit hyperactivity disorder (ADHD), combined type F90.2 and Anxiety disorder, unspecified type F41.9 [facility] [address] [facility] [id number] [address] [place] [address] Jul, Bipolar disorder, in partial remission, most recent episode hypomanic F31.71 [facility] [address] [facility] [id number] [address] [place] [address] Jun, Bipolar disorder, in partial remission, most recent episode hypomanic F31.71 [facility] [address] [id number] [address] [place] [address] May, Bipolar disorder, in partial remission, most recent episode hypomanic F31.71 [facility] [address] [facility] [id number] [address] [place] [address] May, Bipolar disorder, in partial remission, most recent episode hypomanic F31.71 [facility] [address] [facility] [id number] [address] [place] [address] Apr, [facility] [address] [facility] [id number] [address] [place] [address] Apr, Bipolar disorder, in partial remission, most recent episode hypomanic F31.71 ; Attention deficit hyperactivity disorder (ADHD), combined type F90.2 ; Anxiety disorder, unspecified type F41.9 and Cannabis abuse F12.10 [facility] [address] [id number] [address] [place] [address] 13 Apr, 2017 Attention deficit hyperactiv ity disorder (ADHD), combined type F90.2 [facility] [address] [id number] [address] [place] [address] Mar, Attention deficit hyperactiv ity disorder (ADHD), combined type F90.2 [facility] [address] [id number] [address] [place] [address] 14 Mar, 2017 Anxiety disorder, unspecifie d type F41.9 [facility] [address] [id number] [address] [place] [address] 18 Jan, 2017 Attention deficit hyperactiv ity disorder (ADHD), combined type F90.2 [facility] [address] [facility] [id number] [address] [place] [address] Jan, Anxiety disorder, unspecifie d type F41.9 [facility] [address] [facility] [id number] [address] [place] [address] Jan, Other chronic pain G89.29 ; Chronic hepatitis C without hepatic coma B18.2 and Bipolar 1 disorder F31.9 [facility] [address] [facility] [id number] [address] [place] [address] Dec, Attention deficit hyperactiv ity disorder (ADHD), combined type F90.2 [facility] [address] [facility] [id number] [address] [place] [address] 24 Dec, 2016 Bipolar disorder, in partial remission, most recent episode hypomanic F31.71 ; Attention deficit hyperactivity disorder (ADHD), combined type F90.2 and Anxiety disorder, unspecified type F41.9 [facility] [address] [facility] [id number] [address] [place] [address] Dec, Bipolar disorder, in partial remission, most recent episode hypomanic F31.71 ; Attention deficit hyperactivity disorder (ADHD), combined type F90.2 and Anxiety disorder, unspecified type F41.9 [facility] [address] [id number] [address] [place] [address] Dec, Bipolar 1 disorder F31.9 and Attention deficit R41.840 [facility] [address] [facility] [id number] [address] [place] [address] Oct, Other chronic pain G89.29 ; Alopecia L65.9 and Screening, lipid Z13.220 [facility] [address] [place] [id number] [address] [place] [address] Oct, [facility] [address] [place] [id number] [address] [place] [address] Aug, [facility] [address] [place] [id number] [address] [place] [address] Aug, Eustachian tube dysfunction, right H69.81 ; Vertigo R42 and Other chronic pain G89.29 [facility] [address] [place] [id number] [address] [place] [address] Aug, [facility] [address] [place] [id number] [address] [place] [address] Jun, [facility] [address] [place] [id number] [address] [place] [address] Jun, Low back pain M54.5 and Othe r chronic pain G89.29 [facility] [address] [place] [id number] [address] [place] [address] Jun, [facility] [address] [facility] [id number] [address] [place] [address] May, [facility] [address] [place] [id number] [address] [place] [address] Jan, [facility] [address] [place] [id number] [address] [place] [address] Dec, [facility] [address] [place] [id number] [address] [place] [address] Dec, [facility] [address] [facility] [id number] [address] [place] [address] Jun, [facility] [address] [facility] [id number] [address] [place] [address] Apr, Eustachian tube dysfunction, unspecified laterality H69.80 ; Hot flashes N95.1 and Encounter for immunization Z23 [facility] [address] [facility] [id number] [address] [place] [address] Jan, [facility] [address] [facility] [id number] [address] [place] [address] Jan, [facility] [address] [facility] [id number] [address] [place] [address] Jan, [facility] [address] [place] [id number] [address] [place] [address] Jan, [facility] [address] [place] [id number] [place] [address] Jan, Encounter to establish care V65.8 ; Bipolar 1 disorder 296.7 ; Abdominal pain 789.00 ; Constipation 564.00 ; Hard of hearing 389.9 and Drug abuse 305.90 [facility] [address] [facility] [id number] [address] [place] [address] Dec, [facility] [address] [facility] [id number] [address] [place] [address] October, [facility] [address] [facility] [id number] [address] [place] [address] October, [facility] [address] [facility] [id number] [address] [place] [address] Oct, [facility] [address] [facility] [id number] [address] [place] [address] Oct, [facility] [address] [facility] [id number] [address] [place] [address] Oct, [facility] [address] [id number] [address] [place] [address], [place] [address] Aug, [facility] [address] [id number] [address] [place] [address], [place] [address] Aug, 2014 [facility] [address] [id number] [address] [place] [address], [place] [address] Aug, 2014 [facility] [address] [id number] [address] [place] [address], [place] [address] Aug, 2014 [facility] [address] [id number] [address] [place] [address], [place] [address] Aug, 2014 [facility] [address] [id number] [address] [place] [address], [place] [address] Aug, 2014 [facility] [address] [id number] [address] [place] [address], [place] [address] Aug, 2014 [facility] [address] [id number] [address] [place] [address], [place] [address] Aug, 2014 [facility] [address] [id number] [address] [place] [address], [place] [address] Aug, 2014 [facility] [address] [id number] [address] [place] [address], [place] [address] Aug, 2014 [facility] [address] [id number] [address] [place] [address], [place] [address] Aug, 2014 [facility] [address] [id number] [address] [place] [address], [place] [address] Aug, 2014 [facility] [address] [id number] [address] [place] [address], [place] [address] Aug, 2014 [facility] [address] [id number] [address] [place] [address], [place] [address] Aug, 2014 [facility] [address] [id number] [address] [place] [address], [place] [address] Aug, 2014 [facility] [address] [id number] [address] [place] [address], [place] [address] Jul, [facility] [address] [id number] [address] [place] [address], [place] [address] Jul, [facility] [address] [id number] [address] [place] [address], [place] [address] Jul, [facility] [address] [id number] [address] [place] [address], [place] [address] Jul, [facility] [address] [id number] [address] [place] [address], [place] [address] Jul, [facility] [address] [id number] [address] [place] [address], [place] [address] Jul, [facility] [address] [id number] [address] [place] [address], [place] [address] Jul, [facility] [address] [id number] [address] [place] [address], [place] [address] Jul, [facility] [address] [id number] [address] [place] [address], [place] [address] Jun, [facility] [address] [id number] [address] [place] [address], [place] [address] Jun, [facility] [address] [id number] [address] [place] [address], [place] [address] Jun, [facility] [address] [id number] [address] [place] [address], [place] [address] 29 Jun, 2014 [facility] [address] [id number] [address] [place] [address], [place] [address] 18 Jun, 2014 [facility] [address] [id number] [address] [place] [address], [place] [address] Jun, [facility] [address] [id number] [address] [place] [address], [place] [address] Jun, [facility] [address] [id number] [address] [place] [address], [place] [address] Jun, [facility] [address] [id number] [address] [place] [address], [place] [address] Jun, [facility] [address] [id number] [address] [place] [address], [place] [address] Jun, [facility] [address] [id number] [address] [place] [address], [place] [address] Jun, [facility] [address] [id number] [address] [place] [address], [place] [address] May, [facility] [address] [id number] [address] [place] [address], [place] [address] May, [facility] [address] [id number] [address] [place] [address], [place] [address] May, [facility] [address] [id number] [address] [place] [address], [place] [address] May, [facility] [address] [id number] [address] [place] [address], [place] [address] May, [facility] [address] [id number] [address] [place] [address], [place] [address] May, [facility] [address] [id number] [address] [place] [address], [place] [address] May, [facility] [address] [id number] [address] [place] [address], [place] [address] Apr, [facility] [address] [id number] [address] [place] [address], [place] [address] Apr, [facility] [address] [id number] [address] [place] [address], [place] [address] Apr, [facility] [address] [id number] [address] [place] [address], [place] [address] Apr, [facility] [address] [id number] [address] [place] [address], [place] [address] Apr, [facility] [address] [id number] [address] [place] [address], [place] [address] Apr, [facility] [address] [id number] [address] [place] [address], [place] [address] Mar, [facility] [address] [id number] [address] [place] [address], [place] [address] Mar, [facility] [address] [id number] [address] [place] [address], [place] [address] Mar, [facility] [address] [id number] [address] [place] [address], [place] [address] Mar, [facility] [address] [id number] [address] [place] [address], [place] [address] Mar, [facility] [address] [id number] [address] [place] [address], [place] [address] Mar, [facility] [address] [id number] [address] [place] [address], [place] [address] Jan, [facility] [address] [id number] [address] [place] [address], [place] [address] Jan, [facility] [address] [id number] [address] [place] [address], [place] [address] Jan, [facility] [address] [id number] [address] [place] [address], [place] [address] Jan, [facility] [address] [id number] [address] [place] [address], [place] [address] Dec, [facility] [address] [id number] [address] [place] [address], [place] [address] Dec, [facility] [address] [id number] [address] [place] [address], [place] [address] Dec, [facility] [address] [id number] [address] [place] [address], [place] [address] Dec, [facility] [address] [id number] [address] [place] [address], [place] [address] Dec, [facility] [address] [id number] [address] [place] [address], [place] [address] Dec, [facility] [address] [id number] [address] [place] [address], [place] [address] Dec, [facility] [address] [id number] [address] [place] [address], [place] [address] Dec, [facility] [address] [id number] [address] [place] [address], [place] [address] Dec, [facility] [address] [id number] [address] [place] [address], [place] [address] Dec, [facility] [address] [id number] [address] [place] [address], [place] [address] Dec, [facility] [address] [id number] [address] [place] [address], [place] [address] Dec, [facility] [address] [id number] [address] [place] [address], [place] [address] October, [facility] [address] [id number] [address] [place] [address], [place] [address] October, [facility] [address] [id number] [address] [place] [address], [place] [address] October, [facility] [address] [id number] [address] [place] [address], [place] [address] October, [facility] [address] [id number] [address] [place] [address], [place] [address] October, [facility] [address] [id number] [address] [place] [address], [place] [address] October, [facility] [address] [id number] [address] [place] [address], [place] [address] Oct, [facility] [address] [address] [id number] [address] [place] [address], [place] [address] Oct, [facility] [address] [id number] [address] [place] [address], [place] [address] Oct, [facility] [address] [id number] [facility] [address] Oct, [facility] [address] [id number] [facility] [address] Oct, [facility] [address] [id number] [facility] [address] Oct, [facility] [address] [id number] [address] [place] [address], [place] [address] Oct, [facility] [address] [id number] [facility] [address] Oct, [facility] [address] [id number] [address] [place] [address], [place] [address] Oct, [facility] [address] [id number] [address] [place] [address], [place] [address] Oct, [facility] [address] [id number] [address] [place] [address], [place] [address] Oct, [facility] [address] [id number] [address] [place] [address], [place] [address] Oct, [facility] [address] [id number] [address] [place] [address], [place] [address] Aug, [facility] [address] [id number] [address] [place] [address], [place] [address] 15 Aug, 2013 [facility] [address] [id number] [address] [place] [address], [place] [address] Aug, [facility] [address] [id number] [address] [place] [address], [place] [address] Aug, [facility] [address] [id number] [address] [place] [address], [place] [address] 05 Aug, 2013 [facility] [address] [id number] [address] [place] [address], [place] [address] 05 Aug, 2013 [facility] [address] [id number] [address] [place] [address], [place] [address] Aug, [facility] [address] [id number] [facility] [address] Aug, [facility] [address] [id number] [address] [place] [address], [place] [address] Aug, [facility] [address] [id number] [address] [place] [address], [place] [address] Aug, [facility] [address] [id number] [address] [place] [address], [place] [address] Aug, [facility] [address] [id number] [address] [place] [address], [place] [address] Aug, [facility] [address] [id number] [address] [place] [address], [place] [address] Aug, [facility] [address] [id number] [address] [place] [address], [place] [address] 20 Aug, 2013 [facility] [address] [id number] [address] [place] [address], [place] [address] 14 Aug, 2013 [facility] [address] [id number] [address] [place] [address], [place] [address] Aug, [facility] [address] [id number] [address] [place] [address], [place] [address] Aug, [facility] [address] [id number] [address] [place] [address], [place] [address] Aug, [facility] [address] [id number] [address] [place] [address], [place] [address] 07 Aug, 2013 [facility] [address] [id number] [address] [place] [address], [place] [address] 07 Aug, 2013 [facility] [address] [id number] [address] [place] [address], [place] [address] 06 Aug, 2013 [facility] [address] [id number] [address] [place] [address], [place] [address] Aug, [facility] [address] [id number] [address] [place] [address], [place] [address] Aug, [facility] [address] [id number] [address] [place] [address], [place] [address] Aug, [facility] [address] [id number] [address] [place] [address], [place] [address] Aug, [facility] [address] [id number] [address] [place] [address], [place] [address] Jul, [facility] [address] [id number] [address] [place] [address], [place] [address] Jul, [facility] [address] [id number] [address] [place] [address], [place] [address] Jul, [facility] [address] [id number] [address] [place] [address], [place] [address] Jul, [facility] [address] [id number] [address] [place] [address], [place] [address] Jul, [facility] [address] [id number] [address] [place] [address], [place] [address] Jul, [facility] [address] [id number] [address] [place] [address], [place] [address] Jul, [facility] [address] [id number] [address] [place] [address], [place] [address] Jul, [facility] [address] [id number] [address] [place] [address], [place] [address] Jul, [facility] [address] [id number] [address] [place] [address], [place] [address] Jul, [facility] [address] [id number] [address] [place] [address], [place] [address] Jul, [facility] [address] [id number] [address] [place] [address], [place] [address] Jul, [facility] [address] [id number] [address] [place] [address], [place] [address] Jul, [facility] [address] [id number] [address] [place] [address], [place] [address] Jul, [facility] [address] [id number] [address] [place] [address], [place] [address] Jul, [facility] [address] [id number] [address] [place] [address], [place] [address] Jul, [facility] [address] [id number] [address] [place] [address], [place] [address] Jul, [facility] [address] [id number] [address] [place] [address], [place] [address] Jul, [facility] [address] [id number] [address] [place] [address], [place] [address] Jul, [facility] [address] [id number] [address] [place] [address], [place] [address] Jul, [facility] [address] [id number] [address] [place] [address], [place] [address] Jun, [facility] [address] [id number] [address] [place] [address], [place] [address] Jun, [facility] [address] [id number] [address] [place] [address], [place] [address] Jun, [facility] [address] [id number] [address] [place] [address], [place] [address] Jun, [facility] [address] [id number] [address] [place] [address], [place] [address] Jun, [facility] [address] [id number] [address] [place] [address], [place] [address] Jun, [facility] [address] [id number] [address] [place] [address], [place] [address] Jun, [facility] [address] [id number] [address] [place] [address], [place] [address] Jun, [facility] [address] [id number] [address] [place] [address], [place] [address] 24 Jun, 2013 [facility] [address] [id number] [address] [place] [address], [place] [address] Jun, [facility] [address] [id number] [address] [place] [address], [place] [address] Jun, [facility] [address] [id number] [address] [place] [address], [place] [address] Jun, [facility] [address] [id number] [address] [place] [address], [place] [address] Jun, [facility] [address] [id number] [address] [place] [address], [place] [address] Jun, [facility] [address] [id number] [address] [place] [address], [place] [address] Jun, [facility] [address] [id number] [address] [place] [address], [place] [address] Jun, [facility] [address] [id number] [address] [place] [address], [place] [address] 18 Jun, 2013 [facility] [address] [id number] [address] [place] [address], [place] [address] Jun, [facility] [address] [id number] [address] [place] [address], [place] [address] 17 Jun, 2013 [facility] [address] [id number] [address] [place] [address], [place] [address] 13 Jun, 2013 [facility] [address] [id number] [address] [place] [address], [place] [address] 12 Jun, 2013 [facility] [address] [id number] [address] [place] [address], [place] [address] Jun, [facility] [address] [id number] [address] [place] [address], [place] [address] 09 Jun, 2013 [facility] [address] [id number] [address] [place] [address], [place] [address] Jun, [facility] [address] [id number] [address] [place] [address], [place] [address] Jun, [facility] [address] [id number] [address] [place] [address], [place] [address] Jun, [facility] [address] [id number] [address] [place] [address], [place] [address] Jun, [facility] [address] [id number] [address] [place] [address], [place] [address] May, [facility] [address] [id number] [address] [place] [address], [place] [address] May, [facility] [address] [id number] [address] [place] [address], [place] [address] May, [facility] [address] [id number] [address] [place] [address], [place] [address] May, [facility] [address] [id number] [address] [place] [id number] May, [facility] [address] [id number] [address] [place] [address], [place] [address] May, [facility] [address] [id number] [address] [place] [address] Apr, [facility] [address] [id number] [address] [place] [id number] Apr, [facility] [address] [id number] [address] [place] [address] 30 Apr, 2013 [facility] [address] [id number] [address] [place] [address], [place] [address] 30 Apr, 2013 [facility] [address] [id number] [address] [place] [id number] Apr, [facility] [address] [id number] [address] [place] [id number] 15 Apr, 2013 [facility] [address] [id number] [address] [place] [address], [place] [address] 15 Apr, 2013 [facility] [address] [id number] [address] [place] [address], [place] [address] 01 Apr, 2013 [facility] [address] [id number] [address] [place] [address], [place] [address] 26 Mar, 2012 [facility] [address] [id number] [address] [place] [address], [place] [address] 24 Mar, 2012 [facility] [address] [id number] [address] [place] [address], [place] [address] 17 Mar, 2012 [facility] [address] [id number] [address] [place] [address], [place] [address] 17 Mar, 2012 [facility] [address] [id number] [address] [place] [address], [place] [address] 11 Mar, 2013 [facility] [address] [id number] [address] [place] [address], [place] [address] 10 Mar, 2012 [facility] [address] [id number] [address] [place] [address], [place] [address] 05 Mar, 2013 [facility] [address] [id number] [address] [place] [address], [place] [address] 04 Mar, 2013 [facility] [address] [id number] [address] [place] [address], [place] [address] 20 Jan, 2013 [facility] [address] [id number] [address] [place] [address], [place] [address] Jan, [facility] [address] [id number] [address] [place] [address], [place] [address] 14 Jan, 2013 [facility] [address] [id number] [address] [place] [address], [place] [address] 12 Jan, 2013 [facility] [address] [id number] [address] [place] [address], [place] [address] Jan, [facility] [address] [id number] [address] [place] [address], [place] [address] 05 Jan, 2013 [facility] [address] [id number] [facility] [address] 31 Dec, 2012 [facility] [address] [id number] [address] [place] [address], [place] [address] 24 Dec, 2012 [facility] [address] [id number] [address] [place] [address], [place] [address] 22 Dec, 2012 [facility] [address] [id number] [address] [place] [address], [place] [address] 19 Dec, 2012 [facility] [address] [id number] [address] [place] [address], [place] [address] 18 Dec, 2012 [facility] [address] [id number] [address] [place] [address], [place] [address] 17 Dec, 2012 [facility] [address] [id number] [address] [place] [address], [place] [address] 16 Dec, 2012 [facility] [address] [id number] [address] [place] [address], [place] [address] 16 Dec, 2012 [facility] [address] [id number] [address] [place] [address], [place] [address] 15 Dec, 2012 [facility] [address] [id number] [address] [place] [address], [place] [address] 10 Dec, 2012 [facility] [address] [id number] [address] [place] [address], [place] [address] 28 Dec, 2012 [facility] [address] [id number] [address] [place] [address], [place] [address] 25 Dec, 2012 [facility] [address] [id number] [address] [place] [address], [place] [address] 19 Dec, 2012 [facility] [address] [id number] [address] [place] [address], [place] [address] 17 Dec, 2012 [facility] [address] [id number] [address] [place] [address], [place] [address] 13 Dec, 2012 [facility] [address] [id number] [address] [place] [address], [place] [address] Dec, [facility] [address] [id number] [address] [place] [address], [place] [address] October, [facility] [address] [id number] [address] [place] [address], [place] [address] October, [facility] [address] [id number] [address] [place] [address], [place] [address] October, [facility] [address] [id number] [address] [place] [address], [place] [address] October, [facility] [address] [id number] [address] [place] [address], [place] [address] October, [facility] [address] [id number] [address] [place] [address], [place] [address] October, [facility] [address] [id number] [address] [place] [address], [place] [address] October, [facility] [address] [id number] [address] [place] [address], [place] [address] Oct, [facility] [address] [id number] [address] [place] [address], [place] [address] Oct, [facility] [address] [id number] [address] [place] [address], [place] [address] Oct, [facility] [address] [id number] [address] [place] [address], [place] [address] Oct, [facility] [address] [id number] [address] [place] [address], [place] [address] Oct, [facility] [address] [id number] [address] [place] [address], [place] [address] 18 Oct, 2012 [facility] [address] [id number] [address] [place] [address], [place] [address] 17 Oct, 2012 [facility] [address] [id number] [address] [place] [address], [place] [address] 15 Oct, 2012 [facility] [address] [id number] [address] [place] [address], [place] [address] Oct, [facility] [address] [id number] [address] [place] [address], [place] [address] Oct, [facility] [address] [id number] [address] [place] [address], [place] [address] Oct, [facility] [address] [id number] [address] [place] [address], [place] [address] Oct, [facility] [address] [id number] [address] [place] [address], [place] [address] Aug, [facility] [address] [id number] [address] [place] [address], [place] [address] Aug, [facility] [address] [id number] [address] [place] [address], [place] [address] Aug, [facility] [address] [id number] [address] [place] [address], [place] [address] Aug, [facility] [address] [id number] [address] [place] [address], [place] [address] Aug, [facility] [address] [id number] [address] [place] [address], [place] [address] Aug, [facility] [address] [id number] [address] [place] [address], [place] [address] Aug, [facility] [address] [id number] [address] [place] [address], [place] [address] 14 Aug, 2012 [facility] [address] [id number] [address] [place] [address], [place] [address] Aug, [facility] [address] [id number] [address] [place] [address], [place] [address] Aug, [facility] [address] [id number] [address] [place] [address], [place] [address] 29 Jul, 2012 [facility] [address] [id number] [address] [place] [address], [place] [address] Jul, [facility] [address] [id number] [address] [place] [address], [place] [address] 08 Jul, 2012 [facility] [address] [id number] [address] [place] [address], [place] [address] 20 Jun, 2012 [facility] [address] [id number] [address] [place] [address], [place] [address] 18 Jun, 2012 [facility] [address] [id number] [address] [place] [address], [place] [address] 18 Jun, 2012 [facility] [address] [id number] [address] [place] [address], [place] [address] 18 Jun, 2012 [facility] [address] [id number] [address] [place] [address], [place] [address] 18 Jun, 2012 [facility] [address] [id number] [address] [place] [address], [place] [address] 14 Jun, 2012 [facility] [address] [id number] [address] [place] [address], [place] [address] 14 Jun, 2012 [facility] [address] [id number] [address] [place] [address], [place] [address] 13 Jun, 2012 [facility] [address] [id number] [address] [place] [address], [place] [address] 13 Jun, 2012 [facility] [address] [id number] [address] [place] [address], [place] [address] 11 Jun, 2012 [facility] [address] [id number] [address] [place] [address], [place] [address] 11 Jun, 2012 [facility] [address] [id number] [address] [place] [address], [place] [address] 11 Jun, 2012 [facility] [address] [id number] [address] [place] [address], [place] [address] 11 Jun, 2012 [facility] [address] [id number] [address] [place] [address], [place] [address] 07 Jun, 2012 [facility] [address] [id number] [address] [place] [address], [place] [address] 07 Jun, 2012 [facility] [address] [id number] [address] [place] [address], [place] [address] Jun, [facility] [address] [id number] [address] [place] [address], [place] [address] Jun, [facility] [address] [id number] [address] [place] [address], [place] [address] Jun, [facility] [address] [id number] [address] [place] [address], [place] [address] Jun, [facility] [address] [id number] [address] [place] [address], [place] [address] Jun, [facility] [address] [id number] [address] [place] [address], [place] [address] Jun, [facility] [address] [id number] [address] [place] [address], [place] [address] Jun, [facility] [address] [id number] [address] [place] [address], [place] [address] Jun, [facility] [address] [id number] [address] [place] [address], [place] [address] May, [facility] [address] [id number] [address] [place] [address], [place] [address] May, [facility] [address] [id number] [address] [place] [address], [place] [address] May, [facility] [address] [id number] [address] [place] [address], [place] [address] May, [facility] [address] [id number] [address] [place] [address], [place] [address] May, [facility] [address] [id number] [address] [place] [address], [place] [address] May, [facility] [address] [id number] [address] [place] [address], [place] [address] May, [facility] [address] [id number] [address] [place] [address], [place] [address] May, [facility] [address] [id number] [address] [place] [address], [place] [address] Apr, [facility] [facility] [address] [id number] [address] [place] [address], [place] [address] Apr, [facility] [address] [id number] [address] [place] [address], [place] [address] Apr, [facility] [address] [id number] [address] [place] [address], [place] [address] Apr, [facility] [address] [id number] [address] [place] [address], [place] [address] Apr, [facility] [address] [id number] [address] [place] [address], [place] [address] Apr, [facility] [address] [id number] [address] [place] [address], [place] [address] Apr, [facility] [address] [id number] [address] [place] [address], [place] [address] Apr, [facility] [address] [id number] [address] [place] [address], [place] [address] Apr, [facility] [address] [id number] [address] [place] [address], [place] [address] Apr, [facility] [address] [id number] [address] [place] [address], [place] [address] Apr, [facility] [address] [id number] [address] [place] [address], [place] [address] Apr, [facility] [address] [id number] [address] [place] [address], [place] [address] Mar, [facility] [address] [id number] [address] [place] [address], [place] [address] 18 Mar, 2012 [facility] [address] [id number] [address] [place] [address] Mar, [facility] [address] [id number] [address] [place] [id number] Mar, [facility] [address] [id number] [address] [place] [id number] Mar, [facility] [address] [id number] [address] [place] [id number] Mar, [facility] [address] [id number] [address] [place] [id number] Mar, [facility] [address] [id number] [address] [place] [address], [place] [address] Jan, [facility] [address] [id number] [address] [place] [id number] Jan, [facility] [address] [id number] [address] [place] [id number] Jan, [facility] [address] [id number] [address] [place] [id number] Jan, [facility] [address] [id number] [address] [place] [address], [place] [address] Jan, [facility] [address] [id number] [address] [place] [id number] Jan, [facility] [address] [id number] [address] [place] [id number] Jan, [facility] [address] [id number] [address] [place] [id number] Jan, [facility] [address] [id number] [address] [place] [address], [place] [address] Jan, [facility] [address] [id number] [address] [place] [address], [place] [address] Jan, [facility] [address] [id number] [address] [place] [id number] Jan, [facility] [address] [id number] [address] [place] [address], [place] [address] 28 Jan, 2012 [facility] [address] [id number] [address] [place] [address], [place] [address] 27 Jan, 2012 [facility] [address] [id number] [address] [place] [address], [place] [address] 26 Jan, 2012 [facility] [address] [id number] [address] [place] [address], [place] [address] 26 Jan, 2012 [facility] [address] [id number] [address] [place] [address], [place] [address] 20 Jan, 2012 [facility] [address] [id number] [address] [place] [address], [place] [address] 19 Jan, 2012 [facility] [address] [id number] [address] [place] [address], [place] [address] 18 Jan, 2012 [facility] [address] [id number] [address] [place] [address], [place] [address] 17 Jan, 2012 [facility] [address] [id number] [address] [place] [address], [place] [address] 16 Jan, 2012 [facility] [address] [id number] [address] [place] [address], [place] [address] Dec, [facility] [address] [id number] [address] [place] [address], [place] [address] 13 Jan, 2012 [facility] [address] [id number] [address] [place] [address], [place] [address] 02 Jan, 2012 [facility] [address] [id number] [address] [place] [address], [place] [address] Dec, [facility] [address] [id number] [address] [place] [address], [place] [address] Dec, [facility] [address] [id number] [address] [place] [address], [place] [address] Dec, [facility] [address] [id number] [address] [place] [address], [place] [address] 18 Dec, 2011 [facility] [address] [id number] [address] [place] [address], [place] [address] Dec, [facility] [address] [id number] [address] [place] [address], [place] [address] Dec, [facility] [address] [id number] [address] [place] [address], [place] [address] Dec, [facility] [address] [id number] [address] [place] [address], [place] [address] October, [facility] [address] [id number] [address] [place] [address], [place] [address] October, [facility] [address] [id number] [address] [place] [address], [place] [address] October, [facility] [address] [id number] [address] [place] [address], [place] [address] October, [facility] [address] [id number] [address] [place] [address], [place] [address] October, [facility] [address] [id number] [address] [place] [address], [place] [address] October, [facility] [address] [id number] [address] [place] [address], [place] [address] Oct, [facility] [address] [id number] [address] [place] [address], [place] [address] Oct, [facility] [address] [id number] [address] [place] [address], [place] [address] Oct, [facility] [address] [id number] [address] [place] [address], [place] [address] Oct, [facility] [address] [id number] [address] [place] [address], [place] [address] Oct, [facility] [address] [id number] [address] [place] [address], [place] [address] Oct, [facility] [address] [id number] [address] [place] [address], [place] [address] 02 Oct, 2011 [facility] [address] [id number] [address] [place] [address], [place] [address] 29 Sep, 2011 [facility] [address] [id number] [address] [place] [address], [place] [address] 29 Sep, 2011 [facility] [address] [id number] [address] [place] [address], [place] [address] 19 Sep, 2011 [facility] [address] [id number] [address] [place] [address], [place] [address] 13 Sep, 2011 [facility] [address] [id number] [address] [place] [address], [place] [address] 05 Sep, 2011 [facility] [address] [id number] [address] [place] [address], [place] [address] 05 Sep, 2011 [facility] [address] [id number] [address] [place] [address], [place] [address] 27 Aug, 2011 [facility] [address] [id number] [address] [place] [address], [place] [address] 20 Aug, 2011 [facility] [address] [id number] [address] [place] [address], [place] [address] 08 Aug, 2011 [facility] [address] [id number] [address] [place] [address], [place] [address] 31 Jul, 2011 [facility] [address] [id number] [address] [place] [address], [place] [address] Jul, [facility] [address] [id number] [address] [place] [address], [place] [address] 23 Jul, 2011 [facility] [address] [id number] [address] [place] [address], [place] [address] 10 Jul, 2011 [facility] [address] [id number] [address] [place] [address], [place] [address] 28 Jun, 2011 [facility] [address] [id number] [address] [place] [address], [place] [address] Jun, [facility] [address] [id number] [address] [place] [address], [place] [address] May, [facility] [address] [id number] [address] [place] [address], [place] [address] May, [facility] [address] [id number] [address] [place] [address], [place] [address] May, [facility] [address] [id number] [address] [place] [address], [place] [address] May, [facility] [address] [id number] [address] [place] [address], [place] [address] May, [facility] [address] [id number] [address] [place] [address], [place] [address] Apr, [facility] [address] [id number] [address] [place] [address], [place] [address] Apr, [facility] [address] [id number] [address] [place] [address], [place] [address] Apr, [facility] [address] [id number] [address] [place] [address], [place] [address] Jan, [facility] [address] [id number] [address] [place] [address], [place] [address] Dec, [facility] [address] [id number] [address] [place] [address], [place] [address] October, [facility] [address] [id number] [address] [place] [address], [place] [address] Jun, [facility] [address] [id number] [address] [place] [address], [place] [address] 23 Apr, 2009 [facility] [address] [id number] [address] [place] [address], [place] [address] Apr, [facility] [address] [id number] [address] [place] [address], [place] [address] Apr, [facility] [address] [id number] [address] [place] [address], [place] [address] Jun, IMMUNIZATIONS No Known Immunizations SOCIAL HISTORY [...]
--- OUTSIDE RECORDS SUMMARY | 2020-01-25 12:44 | XMS REPORT ---
Author Author Ana Brannon [facility] Address [address] [place] [address] Care Team Providers Care Tree Thinner Name Role Phone ClovisBLANCHEEN Unavailable PROBLEMS Type Condition ICD9-CM Code HFG64-SX Code Onset Dates Condition S tatus SNOMED Code Problem Attention deficit R41.840 Active 76 102437 Problem Chronic hepatitis C without hepatic coma B18.2 Active 928620708 Problem Cannabis abuse F12.10 Active 42113 009 Problem Bipolar disorder, in partial remission, most rec ent episode hypomanic F31.71 Active 236361062 Problem Attention deficit hyperactivity disorder (ADHD), combi luciano type F90.2 Active 09577430 Problem Bipolar 1 disorder F31.9 Active 3 67756300 Problem H/O laminectomy Z98.89 Active 1616 09882 Problem Other chronic pain G89.29 Active 8 6764768 Problem Anxiety disorder, unspecified type F41.9 Active [id number] ALLERGIES No Information ENCOUNTERS Encounter Location Date Diagnosis [facility] [address] [facility] [id number] [address] [place] [phone] Dec, [facility] [address] [facility] [id number] [address] [place] [phone] October, [facility] [address] [facility] [id number] [address] [place] [phone] October, [facility] [address] [facility] [id number] [address] [place] [phone] October, [facility] [address] [facility] [id number] [address] [place] [phone] October, Other chronic pain G89.29 an d Chronic hepatitis C without hepatic coma B18.2 [facility] [address] [facility] [id number] [address] [place] [id number] Aug, Bipolar disorder, in partial remission, most recent episode hypomanic F31.71 ; Attention deficit hyperactivity disorder (ADHD), combined type F90.2 and Anxiety disorder, unspecified type F41.9 [facility] [address] [id number] [address] [place] [phone] Aug, [facility] [address] [id number] [address] [place] [phone] Aug, Bipolar disorder, in partial remission, most recent episode hypomanic F31.71 [facility] [address] [id number] [address] [place] [phone] Aug, [facility] [address] [id number] [address] [place] [address] Aug, Bipolar disorder, in partial remission, most recent episode hypomanic F31.71 [facility] [address] [id number] [address] [place] [phone] Aug, Bipolar disorder, in partial remission, most recent episode hypomanic F31.71 ; Attention deficit hyperactivity disorder (ADHD), combined type F90.2 and Anxiety disorder, unspecified type F41.9 [facility] [address] [id number] [address] [place] [address] Aug, Low back pain M54.5 and Pain in left wrist M25.532 [facility] [address] [id number] [address] [place] [address] Aug, [facility] [address] [id number] [address] [place] [phone] Jun, [facility] [address] [id number] [address] [place] [address] Apr, Bipolar disorder, in partial remission, most recent episode hypomanic F31.71 [facility] [address] [id number] [address] [place] [phone] Apr, [facility] [address] [id number] [address] [place] [address] Apr, Bipolar disorder, in partial remission, most recent episode hypomanic F31.71 ; Attention deficit hyperactivity disorder (ADHD), combined type F90.2 ; Anxiety disorder, unspecified type F41.9 and Other 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 (current) 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 Z79.899 [facility] [address] [id number] [address] [place] [id number] Apr, Bipolar disorder, in partial remission, most recent episode hypomanic F31.71 [facility] [address] [id number] [address] [place] [phone] Apr, Bipolar disorder, in partial remission, most recent episode hypomanic F31.71 [facility] [address] [id number] [address] [place] [address] Mar, [facility] [address] [facility] [id number] [address] [place] [address] Mar, Bipolar disorder, in partial remission, most recent episode hypomanic F31.71 ; Encounter for immunization Z23 and Low back pain M54.5 [facility] [address] [id number] [address] [place] [phone] 17 Mar, 2018 Bipolar disorder, in partial remission, most recent episode hypomanic F31.71 [facility] [address] [id number] [address] [place] [address] Mar, Bipolar disorder, in partial remission, most recent episode hypomanic F31.71 [facility] [address] [facility] [id number] [address] [place] [address] Jan, Bipolar disorder, in partial remission, most recent episode hypomanic F31.71 [facility] [address] [facility] [id number] [address] [place] [phone] Jan, Bipolar disorder, in partial remission, most recent episode hypomanic F31.71 [facility] [address] [id number] [address] [place] [address] Dec, Bipolar disorder, in partial remission, most recent episode hypomanic F31.71 [facility] [address] [id number] [address] [place] [address] Dec, Bipolar disorder, in partial remission, most recent episode hypomanic F31.71 ; Attention deficit hyperactivity disorder (ADHD), combined type F90.2 ; Anxiety disorder, unspecified type F41.9 and 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 [facility] [address] [id number] [address] [place] [phone] Dec, Bipolar disorder, in partial remission, most recent episode hypomanic F31.71 [facility] [address] [id number] [address] [place] [phone] Dec, Bipolar disorder, in partial remission, most recent episode hypomanic F31.71 [facility] [address] [id number] [address] [place] [phone] October, Bipolar disorder, in partial remission, most recent episode hypomanic F31.71 [facility] [address] [id number] [address] [place] [phone] October, [facility] [address] [id number] [address] [place] [phone] October, [facility] [address] [id number] [address] [place] [phone] Oct, Bipolar disorder, in partial remission, most recent episode hypomanic F31.71 ; Attention deficit hyperactivity disorder (ADHD), combined type F90.2 ; Anxiety disorder, unspecified type F41.9 and Encounter for drug screening Z02.83 [facility] [address] [id number] [address] [place] [phone] Oct, Bipolar disorder, in partial remission, most recent episode hypomanic F31.71 [facility] [address] [id number] [address] [place] [phone] Oct, Bipolar disorder, in partial remission, most recent episode hypomanic F31.71 [facility] [address] [id number] [address] [place] [id number] Aug, Bipolar disorder, in partial remission, most recent episode hypomanic F31.71 [facility] [address] [facility] [id number] [address] [place] [address] Aug, Bipolar disorder, in partial remission, most recent episode hypomanic F31.71 [facility] [address] [facility] [id number] [address] [place] [id number] Aug, Bipolar disorder, in partial remission, most recent episode hypomanic F31.71 [facility] [address] [id number] [address] [place] [phone] Jul, Bipolar disorder, in partial remission, most recent episode hypomanic F31.71 ; Attention deficit hyperactivity disorder (ADHD), combined type F90.2 and Anxiety disorder, unspecified type F41.9 [facility] [address] [facility] [id number] [address] [place] [phone] Jul, Bipolar disorder, in partial remission, most recent episode hypomanic F31.71 [facility] [address] [id number] [address] [place] [id number] Jun, Bipolar disorder, in partial remission, most recent episode hypomanic F31.71 [facility] [address] [facility] [id number] [address] [place] [address] May, Bipolar disorder, in partial remission, most recent episode hypomanic F31.71 [facility] [address] [facility] [id number] [address] [place] [address] May, Bipolar disorder, in partial remission, most recent episode hypomanic F31.71 [facility] [address] [facility] [id number] [address] [place] [phone] Apr, [facility] [address] [facility] [id number] [address] [place] [address] Apr, Bipolar disorder, in partial remission, most recent episode hypomanic F31.71 ; Attention deficit hyperactivity disorder (ADHD), combined type F90.2 ; Anxiety disorder, unspecified type F41.9 and Cannabis abuse F12.10 [facility] [address] [facility] [id number] [address] [place] [phone] 13 Apr, 2017 Attention deficit hyperactiv ity disorder (ADHD), combined type F90.2 [facility] [address] [facility] [id number] [address] [place] [phone] Mar, Attention deficit hyperactiv ity disorder (ADHD), combined type F90.2 [facility] [address] [facility] [id number] [address] [place] [phone] 14 Mar, 2017 Anxiety disorder, unspecifie d type F41.9 [facility] [address] [facility] [id number] [address] [place] [phone] Jan, Attention deficit hyperactiv ity disorder (ADHD), combined type F90.2 [facility] [address] [facility] [id number] [address] [place] [phone] Jan, Anxiety disorder, unspecifie d type F41.9 [facility] [address] [facility] [id number] [address] [place] [phone] Jan, Other chronic pain G89.29 ; Chronic hepatitis C without hepatic coma B18.2 and Bipolar 1 disorder F31.9 [facility] [address] [facility] [id number] [address] [place] [phone] Dec, Attention deficit hyperactiv ity disorder (ADHD), combined type F90.2 [facility] [address] [facility] [id number] [address] [place] [phone] Dec, Bipolar disorder, in partial remission, most recent episode hypomanic F31.71 ; Attention deficit hyperactivity disorder (ADHD), combined type F90.2 and Anxiety disorder, unspecified type F41.9 [facility] [address] [facility] [id number] [address] [place] [phone] Dec, Bipolar disorder, in partial remission, most recent episode hypomanic F31.71 ; Attention deficit hyperactivity disorder (ADHD), combined type F90.2 and Anxiety disorder, unspecified type F41.9 [facility] [address] [id number] [address] [place] [phone] Dec, Bipolar 1 disorder F31.9 and Attention deficit R41.840 [facility] [address] [id number] [address] [place] [id number] Oct, Other chronic pain G89.29 ; Alopecia L65.9 and Screening, lipid Z13.220 [facility] [address] [id number] [address] [place] [phone] Oct, [facility] [address] [id number] [address] [place] [id number] Aug, [facility] [address] [facility] [id number] [address] [place] [id number] Aug, Eustachian tube dysfunction, right H69.81 ; Vertigo R42 and Other chronic pain G89.29 [facility] [address] [facility] [id number] [address] [place] [phone] Aug, [facility] [address] [id number] [address] [place] [id number] Jun, [facility] [address] [facility] [id number] [address] [place] [phone] Jun, Low back pain M54.5 and Othe r chronic pain G89.29 [facility] [address] [id number] [address] [place] [phone] Jun, [facility] [address] [id number] [address] [place] [phone] May, [facility] [address] [id number] [address] [place] [phone] Jan, [facility] [address] [facility] [id number] [address] [place] [id number] Dec, [facility] [address] [facility] [id number] [address] [place] [id number] Dec, [facility] [address] [facility] [id number] [address] [place] [phone] Jun, [facility] [address] [facility] [id number] [address] [place] [address] Apr, Eustachian tube dysfunction, unspecified laterality H69.80 ; Hot flashes N95.1 and Encounter for immunization Z23 [facility] [address] [facility] [id number] [address] [place] [phone] Jan, [facility] [address] [id number] [address] [place] [phone] Jan, [facility] [address] [id number] [address] [place] [phone] Jan, [facility] [id number] [place] [address] Jan, [facility] [address] [address] Jan, Encounter to establish care V65.8 ; Bipolar 1 disorder 296.7 ; Abdominal pain 789.00 ; Constipation 564.00 ; Hard of hearing 389.9 and Drug abuse 305.90 [facility] [address] [id number] [place] [address] Dec, [facility] [address] [id number] [address] [place] [address] October, [facility] [address] [id number] [address] [place] [phone] October, [facility] [address] [facility] [id number] [address] [place] [phone] Oct, [facility] [id number] [place] [address] Oct, [facility] [address] [id number] [address] [place] [phone] Oct, [facility] [address] [id number] [address] [place] [phone] Aug, [facility] [address] [id number] [address] [place] [address], [place] [address] Aug, [facility] [address] [id number] [address] [place] [address], [place] [address] Aug, [facility] [address] [id number] [address] [place] [address], [place] [address] Aug, 2014 [facility] [address] [id number] [address] [place] [address], [place] [address] Aug, 2014 [facility] [address] [id number] [address] [place] [address], [place] [address] Aug, 2014 [facility] [address] [id number] [address] [place] [address], [place] [address] Aug, 2014 [facility] [address] [id number] [address] [place] [address], [place] [address] Aug, 2014 [facility] [address] [id number] [address] [place] [address], [place] [address] Aug, 2014 [facility] [address] [id number] [address] [place] [address], [place] [address] Aug, 2014 [facility] [address] [id number] [address] [place] [address], [place] [address] Aug, 2014 [facility] [address] [id number] [address] [place] [address], [place] [address] Aug, 2014 [facility] [address] [id number] [address] [place] [address], [place] [address] Aug, 2014 [facility] [address] [id number] [address] [place] [address], [place] [address] Aug, 2014 [facility] [address] [id number] [address] [place] [address], [place] [address] Aug, 2014 [facility] [address] [id number] [address] [place] [address], [place] [address] Jul, [facility] [address] [id number] [address] [place] [address], [place] [address] Jul, [facility] [address] [id number] [address] [place] [address], [place] [address] Jul, [facility] [address] [id number] [address] [place] [address], [place] [address] Jul, [facility] [address] [id number] [address] [place] [address], [place] [address] Jul, [facility] [address] [id number] [address] [place] [address], [place] [address] Jul, [facility] [address] [id number] [address] [place] [address], [place] [address] Jul, [facility] [address] [id number] [address] [place] [address], [place] [address] Jul, [facility] [address] [id number] [address] [place] [address], [place] [address] Jun, [facility] [address] [id number] [address] [place] [address], [place] [address] Jun, [facility] [address] [id number] [address] [place] [address], [place] [address] Jun, [facility] [address] [id number] [address] [place] [address], [place] [address] 29 Jun, 2014 [facility] [address] [id number] [address] [place] [address], [place] [address] 18 Jun, 2014 [facility] [address] [id number] [address] [place] [address], [place] [address] 15 Jun, 2014 [facility] [address] [id number] [address] [place] [address], [place] [address] 15 Jun, 2014 [facility] [address] [id number] [address] [place] [address], [place] [address] Jun, [facility] [address] [id number] [address] [place], [place] [address] [address] Jun, [facility] [address] [id number] [address] [place] [address], [place] [address] Jun, [facility] [address] [id number] [address] [place] [address], [place] [address] Jun, [facility] [address] [id number] [address] [place] [address], [place] [address] May, [facility] [address] [id number] [address] [place] [address], [place] [address] May, [facility] [address] [id number] [address] [place] [address], [place] [address] May, [facility] [address] [id number] [address] [place] [address], [place] [address] May, [facility] [address] [id number] [address] [place] [address], [place] [address] May, [facility] [address] [id number] [address] [place] [address], [place] [address] May, [facility] [address] [id number] [address] [place] [address], [place] [address] May, [facility] [address] [id number] [address] [place] [address], [place] [address] Apr, [facility] [address] [id number] [address] [place] [address], [place] [address] Apr, [facility] [address] [id number] [address] [place] [address] Apr, [facility] [address] [id number] [address] [place] [address], [place] [address] Apr, [facility] [address] [id number] [address] [place] [address], [place] [address] Apr, [facility] [address] [id number] [address] [place] [address], [place] [address] Apr, [facility] [address] [id number] [facility] [address] 29 Mar, 2013 [facility] [address] [id number] [address] [place] [address], [place] [address] 29 Mar, 2013 [facility] [address] [id number] [address] [place] [address], [place] [address] Mar, [facility] [address] [id number] [address] [place] [address], [place] [address] Mar, [facility] [address] [id number] [address] [place] [address], [place] [address] Mar, [facility] [address] [id number] [address] [place] [address], [place] [address] Mar, [facility] [address] [id number] [address] [place] [address], [place] [address] Jan, [facility] [address] [id number] [address] [place] [address], [place] [address] Jan, [facility] [address] [id number] [address] [place] [address], [place] [address] Jan, [facility] [address] [id number] [address] [place] [address], [place] [address] Jan, [facility] [address] [id number] [address] [place] [address], [place] [address] Dec, [facility] [address] [id number] [address] [place] [address], [place] [address] Dec, [facility] [address] [id number] [address] [place] [address], [place] [address] Dec, [facility] [address] [id number] [address] [place] [address], [place] [address] Dec, [facility] [address] [id number] [address] [place] [address], [place] [address] Dec, [facility] [address] [id number] [address] [place] [address], [place] [address] Dec, [facility] [address] [id number] [address] [place] [address], [place] [address] Dec, [facility] [address] [id number] [address] [place] [address], [place] [address] Dec, [facility] [address] [id number] [address] [place] [address], [place] [address] Dec, [facility] [address] [id number] [address] [place] [address], [place] [address] Dec, [facility] [address] [id number] [address] [place] [address], [place] [address] Dec, [facility] [address] [id number] [address] [place] [address], [place] [address] Dec, [facility] [address] [id number] [address] [place] [address], [place] [address] October, [facility] [address] [id number] [address] [place] [address], [place] [address] October, [facility] [address] [id number] [address] [place] [address], [place] [address] October, [facility] [address] [id number] [address] [place] [address], [place] [address] October, [facility] [address] [id number] [address] [place] [address], [place] [address] October, [facility] [address] [id number] [address] [place] [address], [place] [address] October, [facility] [address] [id number] [address] [place] [address], [place] [address] Oct, [facility] [address] [id number] [address] [place] [address], [place] [address] Oct, [facility] [address] [id number] [address] [place] [address], [place] [address] Oct, [facility] [address] [id number] [address] [place] [address], [place] [address] Oct, [facility] [address] [id number] [facility] [address] Oct, [facility] [address] [id number] [address] [place] [address], [place] [address] Oct, [facility] [address] [id number] [address] [place] [address], [place] [address] Oct, [facility] [address] [id number] [address] [place] [address], [place] [address] Oct, [facility] [address] [id number] [address] [place] [address], [place] [address] Oct, [facility] [address] [id number] [address] [place] [address], [place] [address] Oct, [facility] [address] [id number] [address] [place] [address], [place] [address] Oct, [facility] [address] [id number] [address] [place] [address], [place] [address] Oct, [facility] [address] [id number] [address] [place] [address], [place] [address] Aug, [facility] [address] [id number] [address] [place] [address], [place] [address] Aug, [facility] [address] [id number] [address] [place] [address], [place] [address] Aug, [facility] [address] [id number] [address] [place] [address], [place] [address] Aug, [facility] [address] [id number] [address] [place] [address], [place] [address] 05 Aug, 2013 [facility] [address] [id number] [address] [place] [address], [place] [address] 05 Aug, 2013 [facility] [address] [id number] [address] [place] [address], [place] [address] Aug, [facility] [address] [id number] [address] [place] [address], [place] [address] Aug, [facility] [address] [id number] [address] [place] [address], [place] [address] Aug, [facility] [address] [id number] [address] [place] [address], [place] [address] Aug, [facility] [address] [id number] [address] [place] [address], [place] [address] Aug, [facility] [address] [id number] [address] [place] [address], [place] [address] Aug, [facility] [address] [id number] [address] [place] [address], [place] [address] Aug, [facility] [address] [id number] [address] [place] [address], [place] [address] Aug, [facility] [address] [id number] [address] [place] [address], [place] [address] 14 Aug, 2013 [facility] [address] [id number] [address] [place] [address], [place] [address] Aug, [facility] [address] [id number] [address] [place] [address], [place] [address] Aug, [facility] [address] [id number] [address] [place] [address], [place] [address] Aug, [facility] [address] [id number] [address] [place] [address], [place] [address] Aug, [facility] [address] [id number] [address] [place] [address], [place] [address] Aug, [facility] [address] [id number] [address] [place] [address], [place] [address] Aug, [facility] [address] [id number] [address] [place] [address], [place] [address] Aug, [facility] [address] [id number] [address] [place] [address], [place] [address] 04 Aug, 2013 [facility] [address] [id number] [address] [place] [address], [place] [address] Aug, [facility] [address] [id number] [address] [place] [address], [place] [address] Aug, [facility] [address] [id number] [address] [place] [address], [place] [address] Jul, [facility] [address] [id number] [address] [place] [address], [place] [address] Jul, [facility] [address] [id number] [address] [place] [address], [place] [address] Jul, [facility] [address] [id number] [address] [place] [address], [place] [address] Jul, [facility] [address] [id number] [address] [place] [address], [place] [address] Jul, [facility] [address] [id number] [address] [place] [address], [place] [address] Jul, [facility] [address] [id number] [address] [place] [address], [place] [address] Jul, [facility] [address] [id number] [address] [place] [address], [place] [address] Jul, [facility] [address] [id number] [address] [place] [address], [place] [address] Jul, [facility] [address] [id number] [address] [place] [address], [place] [address] Jul, [facility] [address] [id number] [address] [place] [address], [place] [address] Jul, [facility] [address] [id number] [address] [place] [address], [place] [address] Jul, [facility] [address] [id number] [address] [place] [address], [place] [address] Jul, [facility] [address] [id number] [address] [place] [address], [place] [address] Jul, [facility] [address] [id number] [address] [place] [address], [place] [address] Jul, [facility] [address] [id number] [address] [place] [address], [place] [address] Jul, [facility] [address] [id number] [address] [place] [address], [place] [address] Jul, [facility] [address] [id number] [address] [place] [address], [place] [address] Jul, [facility] [address] [id number] [address] [place] [address], [place] [address] Jul, [facility] [address] [id number] [address] [place] [address], [place] [address] Jul, [facility] [address] [id number] [address] [place] [address], [place] [address] Jun, [facility] [address] [id number] [address] [place] [address], [place] [address] Jun, [facility] [address] [id number] [address] [place] [address], [place] [address] Jun, [facility] [address] [id number] [address] [place] [address], [place] [address] Jun, [facility] [address] [id number] [address] [place] [address], [place] [address] Jun, [facility] [address] [id number] [address] [place] [address], [place] [address] Jun, [facility] [address] [id number] [address] [place] [address], [place] [address] Jun, [facility] [address] [id number] [address] [place] [address], [place] [address] Jun, [facility] [address] [id number] [address] [place] [address], [place] [address] Jun, [facility] [address] [id number] [address] [place] [address], [place] [address] Jun, [facility] [address] [id number] [address] [place] [address], [place] [address] Jun, [facility] [address] [id number] [address] [place] [address], [place] [address] Jun, [facility] [address] [id number] [address] [place] [address], [place] [address] Jun, [facility] [address] [id number] [address] [place] [address], [place] [address] Jun, [facility] [address] [id number] [address] [place] [address], [place] [address] Jun, [facility] [address] [id number] [address] [place] [address], [place] [address] 18 Jun, 2013 [facility] [address] [id number] [address] [place] [address], [place] [address] 18 Jun, 2013 [facility] [address] [id number] [address] [place] [address], [place] [address] 17 Jun, 2013 [facility] [address] [id number] [address] [place] [address], [place] [address] 17 Jun, 2013 [facility] [address] [id number] [address] [place] [address], [place] [address] 13 Jun, 2013 [facility] [address] [id number] [address] [place] [address], [place] [address] 12 Jun, 2013 [facility] [address] [id number] [address] [place] [address], [place] [address] 12 Jun, 2013 [facility] [address] [id number] [address] [place] [address], [place] [address] 09 Jun, 2013 [facility] [address] [id number] [address] [place] [address], [place] [address] 05 Jun, 2013 [facility] [address] [id number] [address] [place] [address], [place] [address] 05 Jun, 2013 [facility] [address] [id number] [address] [place] [address], [place] [address] Jun, [facility] [address] [id number] [address] [place] [address], [place] [address] Jun, [facility] [address] [id number] [address] [place] [address], [place] [address] May, [facility] [address] [id number] [address] [place] [address], [place] [address] May, [facility] [address] [id number] [address] [place] [address], [place] [address] May, [facility] [address] [id number] [address] [place] [address], [place] [address] May, [facility] [address] [id number] [address] [place] [address], [place] [address] May, [facility] [address] [id number] [address] [place] [address], [place] [address] May, [facility] [address] [id number] [address] [place] [address], [place] [address] Apr, [facility] [address] [id number] [address] [place] [address], [place] [address] Apr, [facility] [address] [id number] [address] [place] [address], [place] [address] 30 Apr, 2013 [facility] [address] [id number] [address] [place] [address], [place] [address] 30 Apr, 2013 [facility] [address] [id number] [address] [place] [address], [place] [address] Apr, [facility] [address] [id number] [address] [place] [address], [place] [address] 15 Apr, 2013 [facility] [address] [id number] [address] [place] [address], [place] [address] Apr, [facility] [address] [id number] [address] [place] [address], [place] [address] Apr, [facility] [address] [id number] [address] [place] [address], [place] [address] 26 Mar, 2012 [facility] [address] [id number] [address] [place] [address], [place] [address] 24 Mar, 2012 [facility] [address] [id number] [address] [place] [address], [place] [address] 17 Mar, 2012 [facility] [address] [id number] [address] [place] [address], [place] [address] 17 Mar, 2012 [facility] [address] [id number] [address] [place] [address], [place] [address] 11 Mar, 2013 [facility] [address] [id number] [address] [place] [address], [place] [address] 10 Mar, 2013 [facility] [address] [id number] [address] [place] [address], [place] [address] 05 Mar, 2013 [facility] [address] [id number] [address] [place] [address], [place] [address] 04 Mar, 2013 [facility] [address] [id number] [address] [place] [address], [place] [address] 20 Jan, 2013 [facility] [address] [id number] [address] [place] [address], [place] [address] Jan, [facility] [address] [id number] [address] [place] [address], [place] [address] 14 Jan, 2013 [facility] [address] [id number] [address] [place] [address], [place] [address] Jan, [facility] [address] [id number] [address] [place] [address], [place] [address] Jan, [facility] [address] [id number] [address] [place] [address], [place] [address] 05 Jan, 2013 [facility] [address] [id number] [address] [place] [address] 31 Dec, 2012 [facility] [address] [id number] [facility] [address] 24 Dec, 2012 [facility] [address] [id number] [address] [place] [address], [place] [address] 22 Dec, 2012 [facility] [address] [id number] [address] [place] [address], [place] [address] 19 Dec, 2012 [facility] [address] [id number] [address] [place] [address], [place] [address] 18 Dec, 2012 [facility] [address] [id number] [address] [place] [address], [place] [address] 17 Dec, 2012 [facility] [address] [id number] [address] [place] [address], [place] [address] 16 Dec, 2012 [facility] [address] [id number] [address] [place] [address], [place] [address] 16 Dec, 2012 [facility] [address] [id number] [address] [place] [address], [place] [address] 15 Dec, 2012 [facility] [address] [id number] [address] [place] [address], [place] [address] 10 Dec, 2012 [facility] [address] [id number] [address] [place] [address], [place] [address] 28 Dec, 2012 [facility] [address] [id number] [address] [place] [address], [place] [address] 25 Dec, 2012 [facility] [address] [id number] [address] [place] [address], [place] [address] 19 Dec, 2012 [facility] [address] [id number] [address] [place] [address], [place] [address] 17 Dec, 2012 [facility] [address] [id number] [address] [place] [address], [place] [address] 13 Dec, 2012 [facility] [address] [id number] [address] [place] [address], [place] [address] 11 Dec, 2012 [facility] [address] [id number] [address] [place] [address], [place] [address] October, [facility] [address] [id number] [address] [place] [address], [place] [address] October, [facility] [address] [id number] [address] [place] [address], [place] [address] October, [facility] [address] [id number] [address] [place] [address], [place] [address] October, [facility] [address] [id number] [address] [place] [address], [place] [address] October, [facility] [address] [id number] [address] [place] [address], [place] [address] October, [facility] [address] [id number] [address] [place] [address], [place] [address] October, [facility] [address] [id number] [address] [place] [address], [place] [address] Oct, [facility] [address] [id number] [address] [place] [address], [place] [address] Oct, [facility] [address] [id number] [address] [place] [address], [place] [address] 24 Oct, 2012 [facility] [address] [id number] [address] [place] [address], [place] [address] Oct, [facility] [address] [id number] [address] [place] [address], [place] [address] Oct, [facility] [address] [id number] [address] [place] [address], [place] [address] 18 Oct, 2012 [facility] [address] [id number] [address] [place] [address], [place] [address] 17 Oct, 2012 [facility] [address] [id number] [address] [place] [address], [place] [address] 15 Oct, 2012 [facility] [address] [id number] [address] [place] [address] [address] Oct, [facility] [address] [id number] [address] [place] [address], [place] [address] Oct, [facility] [address] [id number] [address] [place] [address], [place] [address] Oct, [facility] [address] [id number] [address] [place] [address], [place] [address] Oct, [facility] [address] [id number] [address] [place] [address], [place] [address] Aug, [facility] [address] [id number] [address] [place] [address], [place] [address] Aug, [facility] [address] [id number] [address] [place] [address], [place] [address] Aug, [facility] [address] [id number] [address] [place] [address], [place] [address] Aug, [facility] [address] [id number] [address] [place] [address], [place] [address] Aug, [facility] [address] [id number] [address] [place] [address], [place] [address] Aug, [facility] [address] [id number] [address] [place] [address], [place] [address] Aug, [facility] [address] [id number] [address] [place] [address], [place] [address] 14 Aug, 2012 [facility] [address] [id number] [address] [place] [address], [place] [address] Aug, [facility] [address] [id number] [address] [place] [address], [place] [address] Aug, [facility] [address] [id number] [address] [place] [address], [place] [address] 29 Jul, 2012 [facility] [address] [id number] [address] [place] [address], [place] [address] 15 Jul, 2012 [facility] [address] [id number] [address] [place] [address], [place] [address] 08 Jul, 2012 [facility] [address] [id number] [address] [place] [address], [place] [address] 20 Jun, 2012 [facility] [address] [id number] [address] [place] [address], [place] [address] 18 Jun, 2012 [facility] [address] [id number] [address] [place] [address], [place] [address] 18 Jun, 2012 [facility] [address] [id number] [address] [place] [address], [place] [address] 18 Jun, 2012 [facility] [address] [id number] [address] [place] [address], [place] [address] 18 Jun, 2012 [facility] [address] [id number] [address] [place] [address], [place] [address] 14 Jun, 2012 [facility] [address] [id number] [address] [place] [address], [place] [address] 14 Jun, 2012 [facility] [address] [id number] [address] [place] [address], [place] [address] 13 Jun, 2012 [facility] [address] [id number] [address] [place] [address], [place] [address] 13 Jun, 2012 [facility] [address] [id number] [address] [place] [address], [place] [address] 11 Jun, 2012 [facility] [address] [id number] [address] [place] [address], [place] [address] 11 Jun, 2012 [facility] [address] [id number] [address] [place] [address], [place] [address] 11 Jun, 2012 [facility] [address] [id number] [address] [place] [address], [place] [address] 11 Jun, 2012 [facility] [address] [id number] [address] [place] [address], [place] [address] 07 Jun, 2012 [facility] [address] [id number] [address] [place] [address], [place] [address] Jun, [facility] [address] [id number] [address] [place] [address], [place] [address] Jun, [facility] [address] [id number] [address] [place] [address], [place] [address] Jun, [facility] [address] [id number] [address] [place] [address], [place] [address] Jun, [facility] [address] [id number] [address] [place] [address], [place] [address] Jun, [facility] [address] [id number] [address] [place] [address], [place] [address] Jun, [facility] [address] [id number] [address] [place] [address], [place] [address] Jun, [facility] [address] [id number] [address] [place] [address], [place] [address] Jun, [facility] [address] [id number] [address] [place] [address], [place] [address] Jun, [facility] [address] [id number] [address] [place] [address], [place] [address] May, [facility] [address] [id number] [address] [place] [address], [place] [address] May, [facility] [address] [id number] [address] [place] [address], [place] [address] May, [facility] [address] [id number] [address] [place] [address] May, [facility] [address] [id number] [address] [place] [address], [place] [address] May, [facility] [address] [id number] [address] [place] [address], [place] [address] May, [facility] [address] [id number] [address] [place] [address], [place] [address] May, [facility] [address] [id number] [address] [place] [id number] 06 May, 2012 [facility] [address] [id number] [address] [place] [address], [place] [address] 30 Apr, 2012 [facility] [address] [id number] [address] [place] [id number] 30 Apr, 2012 [facility] [address] [id number] [address] [place] [address], [place] [address] 29 Apr, 2012 [facility] [address] [id number] [address] [place] [address], [place] [address] 16 Apr, 2012 [facility] [address] [id number] [address] [place] [address], [place] [address] Apr, [facility] [address] [id number] [address] [place] [address], [place] [address] Apr, [facility] [address] [id number] [address] [place] [phone] Apr, [facility] [address] [id number] [address] [place] [address], [place] [address] Apr, [facility] [address] [id number] [address] [place] [address], [place] [address] 09 Apr, 2012 [facility] [address] [id number] [address] [place] [id number] 08 Apr, 2012 [facility] [address] [id number] [address] [place] [phone] 04 Apr, 2012 [facility] [address] [id number] [address] [place] [id number] 02 Apr, 2012 [facility] [address] [id number] [address] [place] [phone] 19 Mar, 2012 [facility] [address] [id number] [address] [place] [id number] 18 Mar, 2012 [facility] [address] [id number] [address] [place] [phone] 12 Mar, 2012 [facility] [address] [id number] [address] [place] [address], [place] [address] Mar, [facility] [address] [id number] [address] [place] [address], [place] [id number] Mar, [facility] [address] [id number] [address] [place] [address], [place] [id number] Mar, [facility] [address] [id number] [address] [place] [address], [place] [address] Mar, [facility] [address] [id number] [address] [place] [address], [place] [address] Jan, [facility] [address] [id number] [address] [place] [address], [place] [address] Jan, [facility] [address] [id number] [address] [place] [address], [place] [id number] Jan, [facility] [address] [id number] [address] [place] [address], [place] [id number] Jan, [facility] [address] [id number] [address] [place] [address], [place] [address] Jan, [facility] [address] [id number] [address] [place] [address], [place] [address] Jan, [facility] [address] [id number] [address] [place] [address], [place] [address] Jan, [facility] [address] [id number] [address] [place] [address], [place] [address] Jan, [facility] [address] [id number] [address] [place] [address], [place] [address] Jan, [facility] [address] [id number] [address] [place] [address], [place] [address] Jan, [facility] [address] [id number] [address] [place] [address], [place] [address] Jan, [facility] [address] [id number] [address] [place] [address], [place] [address] Dec, [facility] [address] [id number] [address] [place] [address], [place] [address] 27 Jan, 2012 [facility] [address] [id number] [address] [place] [address], [place] [address] Dec, [facility] [address] [id number] [address] [place] [address], [place] [address] 26 Jan, 2012 [facility] [address] [id number] [address] [place] [address], [place] [address] 20 Jan, 2012 [facility] [address] [id number] [address] [place] [address], [place] [address] 19 Jan, 2012 [facility] [address] [id number] [address] [place] [address], [place] [address] 18 Jan, 2012 [facility] [address] [id number] [address] [place] [address], [place] [address] 17 Jan, 2012 [facility] [address] [id number] [address] [place] [address], [place] [address] 16 Jan, 2012 [facility] [address] [id number] [address] [place] [address], [place] [address] Dec, [facility] [address] [id number] [address] [place] [address], [place] [address] Dec, [facility] [address] [id number] [address] [place] [address], [place] [address] Dec, [facility] [address] [id number] [address] [place] [address], [place] [address] Dec, [facility] [address] [id number] [address] [place] [address], [place] [address] Dec, [facility] [address] [id number] [address] [place] [address], [place] [address] Dec, [facility] [address] [id number] [address] [place] [address], [place] [address] Dec, [facility] [address] [id number] [address] [place] [address], [place] [address] Dec, [facility] [address] [id number] [address] [place] [address], [place] [address] Dec, [facility] [address] [id number] [address] [place] [address], [place] [address] Dec, [facility] [address] [id number] [address] [place] [address], [place] [address] October, [facility] [address] [id number] [address] [place] [address], [place] [address] October, [facility] [address] [id number] [address] [place] [address], [place] [address] October, [facility] [address] [id number] [address] [place] [address], [place] [address] October, [facility] [address] [id number] [address] [place] [address], [place] [address] October, [facility] [address] [id number] [address] [place] [address], [place] [address] October, [facility] [address] [id number] [address] [place] [address], [place] [address] Oct, [facility] [address] [id number] [address] [place] [address], [place] [address] Oct, [facility] [address] [id number] [address] [place] [address], [place] [address] Oct, [facility] [address] [id number] [address] [place] [address], [place] [address] Oct, [facility] [address] [id number] [address] [place] [address], [place] [address] Oct, [facility] [address] [id number] [address] [place] [address], [place] [address] Oct, [facility] [address] [id number] [address] [place] [address], [place] [address] Oct, [facility] [address] [id number] [facility] [address] 29 Sep, 2011 [facility] [address] [id number] [address] [place] [address], [place] [address] 29 Sep, 2011 [facility] [address] [id number] [address] [place] [address], [place] [address] 19 Sep, 2011 [facility] [address] [id number] [address] [place] [address], [place] [address] 13 Sep, 2011 [facility] [address] [id number] [address] [place] [address], [place] [address] 05 Sep, 2011 [facility] [address] [id number] [address] [place] [address], [place] [address] 05 Sep, 2011 [facility] [address] [id number] [address] [place] [address], [place] [address] 27 Aug, 2011 [facility] [address] [id number] [address] [place] [address], [place] [address] 20 Aug, 2011 [facility] [address] [id number] [address] [place] [address], [place] [address] 08 Aug, 2011 [facility] [address] [id number] [address] [place] [address], [place] [address] Jul, [facility] [address] [id number] [address] [place] [address], [place] [address] Jul, [facility] [address] [id number] [address] [place] [address], [place] [address] Jul, [facility] [address] [id number] [address] [place] [address], [place] [address] Jul, [facility] [address] [id number] [address] [place] [address], [place] [address] Jun, [facility] [address] [id number] [address] [place] [address], [place] [address] Jun, [facility] [address] [id number] [address] [address] May, [facility] [address] [id number] [address] [place] [address] May, [facility] [address] [id number] [address] [place] [address] May, [facility] [address] [id number] [address] [place] [address] May, [facility] [address] [id number] [address] [place] [address] May, [facility] [address] [id number] [address] [place] [address] Apr, [facility] [address] [id number] [address] [place] [address] Apr, [facility] [address] [id number] [address] [place] [address] Apr, [facility] [address] [id number] [address] [place] [address] Jan, [facility] [address] [id number] [address] [place] [address] Dec, [facility] [address] [id number] [address] [place] [address] October, [facility] [address] [id number] [address] [place] [address] Jun, [facility] [address] [id number] [address] [place] [phone] Apr, [facility] [address] [id number] [address] [place] [address] Apr, [facility] [address] [id number] [address] [place] [address] Apr, [facility] [address] [id number] [address] [place] [id number] Jun, IMMUNIZATIONS No Known Immunizations SOCIAL HISTORY Never Assessed REASON FOR VISIT PLAN OF CARE VITAL SIGNS Height 69 in 2012-01-26 Weight 141 lbs 2012-01-26 Heart Rate 100 bpm 2012-01-26 Respiratory Rate 22 2012-01-26 Blood pressure systolic 100 mmHg 2012-01-26 Blood pressure diastolic 68 mmHg 2012-01-26 MEDICATIONS Unknown Medications RESULTS No Results PROCEDURES Procedure Date Ordered Result Body Site SLEEP STUDY, UNATTENDED January 26, 2012 URINE CULTURE/COLONY COUNT January 26, 2012 DRUG SCREEN, QUALITATE/MULTI January 26, 2012 URINALYSIS, AUTO, W/O SCOPE January 26, 2012 INSTRUCTIONS MEDICATIONS ADMINISTERED No Known Medications MEDICAL (GENERAL) HISTORY Type Description Date Medical History Psychiatric disorder Medical History Hard of hearing Surgical History Neofibrous tumor Surgical History back injection Surgical History SCS inserted 02/22/16 Hospitalization History Intestinal blockage Hospitalization History past psychiatric hospitalizations x2 Hospitalization History [facility]
--- OUTSIDE RECORDS SUMMARY | 2020-01-25 12:45 | XMS REPORT ---
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 Name Role Phone MELISA Iraheta Unavailable PROBLEMS Type Condition ICD9-CM Code [id number] Code Onset Dates Condition S tatus SNOMED Code Problem Attention deficit R41.840 Active 76 118018 Problem Chronic hepatitis C without hepatic coma B18.2 Active 159552134 Problem Cannabis abuse F12.10 Active 12750 009 Problem Bipolar disorder, in partial remission, most rec ent episode hypomanic F31.71 Active 705281926 Problem Attention deficit hyperactivity disorder (ADHD), combi luciano type F90.2 Active 55719913 Problem Bipolar 1 disorder F31.9 Active 3 15082636 Problem H/O laminectomy Z98.89 Active 1616 44623 Problem Other chronic pain G89.29 Active 8 6528372 Problem Anxiety disorder, unspecified type F41.9 Active 941113324 ALLERGIES No Information ENCOUNTERS Encounter Location Date Diagnosis [facility] [address] [facility] [id number] [address] [place] [id number] 08 Dec, 2018 [facility] [address] [facility] [id number] [address] [place] [phone] October, [facility] [address] [facility] [id number] [address] [place] [phone] October, [facility] [address] [facility] [id number] [address] [place] [address] October, [facility] [address] [facility] [id number] [address] [place] [address] October, Other chronic pain G89.29 an d Chronic hepatitis C without hepatic coma B18.2 [facility] [address] [facility] [id number] [address] [place] [address] Aug, Bipolar disorder, in partial remission, most recent episode hypomanic F31.71 ; Attention deficit hyperactivity disorder (ADHD), combined type F90.2 and Anxiety disorder, unspecified type F41.9 [facility] [address] [id number] [address] [place] [phone] Aug, [facility] [address] [id number] [address] [place] [address] Aug, Bipolar disorder, in partial remission, most recent episode hypomanic F31.71 [facility] [address] [id number] [address] [place] [address] Aug, [facility] [address] [id number] [address] [place] [address] Aug, Bipolar disorder, in partial remission, most recent episode hypomanic F31.71 [facility] [address] [id number] [address] [place] [address] Aug, Bipolar disorder, in partial remission, most recent episode hypomanic F31.71 ; Attention deficit hyperactivity disorder (ADHD), combined type F90.2 and Anxiety disorder, unspecified type F41.9 [facility] [address] [id number] [address] [place] [address] Aug, Low back pain M54.5 and Pain in left wrist M25.532 [facility] [address] [id number] [address] [place] [address] Aug, [facility] [address] [id number] [address] [place] [address] Jun, [facility] [address] [id number] [address] [place] [address] Apr, Bipolar disorder, in partial remission, most recent episode hypomanic F31.71 [facility] [address] [id number] [address] [place] [address] Apr, [facility] [address] [id number] [address] [place] [address] Apr, Bipolar disorder, in partial remission, most recent episode hypomanic F31.71 ; Attention deficit hyperactivity disorder (ADHD), combined type F90.2 ; Anxiety disorder, unspecified type F41.9 and Other nursing home (current) 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 Z79.899 [facility] [address] [id number] [address] [place] [address] Apr, Bipolar disorder, in partial remission, most recent episode hypomanic F31.71 [facility] [address] [facility] [id number] [address] [place] [address] Apr, Bipolar disorder, in partial remission, most recent episode hypomanic F31.71 [facility] [address] [id number] [address] [place] [address] Mar, [facility] [address] [facility] [id number] [address] [place] [id number] Mar, Bipolar disorder, in partial remission, most recent episode hypomanic F31.71 ; Encounter for immunization Z23 and Low back pain M54.5 [facility] [address] [id number] [address] [place] [address] Mar, Bipolar disorder, in partial remission, most recent episode hypomanic F31.71 [facility] [address] [id number] [address] [place] [id number] Mar, Bipolar disorder, in partial remission, most recent episode hypomanic F31.71 [facility] [address] [facility] [id number] [address] [place] [phone] Jan, Bipolar disorder, in partial remission, most recent episode hypomanic F31.71 [facility] [address] [facility] [id number] [address] [place] [address] Jan, Bipolar disorder, in partial remission, most recent episode hypomanic F31.71 [facility] [address] [id number] [address] [place] [address] Dec, Bipolar disorder, in partial remission, most recent episode hypomanic F31.71 [facility] [address] [id number] [address] [place] [address] Dec, Bipolar disorder, in partial remission, most recent episode hypomanic F31.71 ; Attention deficit hyperactivity disorder (ADHD), combined type F90.2 ; Anxiety disorder, unspecified type F41.9 and Other nursing home (current) 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 Z79.899 [facility] [address] [id number] [address] [place] [id number] Dec, Bipolar disorder, in partial remission, most recent episode hypomanic F31.71 [facility] [address] [id number] [address] [place] [address] Dec, Bipolar disorder, in partial remission, most recent episode hypomanic F31.71 [facility] [address] [id number] [address] [place] [address] October, Bipolar disorder, in partial remission, most recent episode hypomanic F31.71 [facility] [address] [id number] [address] [place] [address] October, [facility] [address] [id number] [address] [place] [phone] October, [facility] [address] [id number] [address] [place] [id number] Oct, Bipolar disorder, in partial remission, most recent episode hypomanic F31.71 ; Attention deficit hyperactivity disorder (ADHD), combined type F90.2 ; Anxiety disorder, unspecified type F41.9 and Encounter for drug screening Z02.83 [facility] [address] [id number] [address] [place] [phone] Oct, Bipolar disorder, in partial remission, most recent episode hypomanic F31.71 [facility] [address] [id number] [address] [place] [phone] Oct, Bipolar disorder, in partial remission, most recent episode hypomanic F31.71 [facility] [address] [id number] [address] [place] [address] Aug, Bipolar disorder, in partial remission, most recent episode hypomanic F31.71 [facility] [address] [id number] [address] [place] [address] Aug, Bipolar disorder, in partial remission, most recent episode hypomanic F31.71 [facility] [address] [id number] [address] [place] [address] Aug, Bipolar disorder, in partial remission, most recent episode hypomanic F31.71 [facility] [address] [id number] [address] [place] [address] Jul, Bipolar disorder, in partial remission, most recent episode hypomanic F31.71 ; Attention deficit hyperactivity disorder (ADHD), combined type F90.2 and Anxiety disorder, unspecified type F41.9 [facility] [address] [facility] [id number] [address] [place] [id number] Jul, Bipolar disorder, in partial remission, most recent episode hypomanic F31.71 [facility] [address] [id number] [address] [place] [phone] Jun, Bipolar disorder, in partial remission, most recent episode hypomanic F31.71 [facility] [address] [facility] [id number] [address] [place] [phone] May, Bipolar disorder, in partial remission, most recent episode hypomanic F31.71 [facility] [address] [facility] [id number] [address] [place] [id number] May, Bipolar disorder, in partial remission, most recent episode hypomanic F31.71 [facility] [address] [facility] [id number] [address] [place] [id number] Apr, [facility] [address] [facility] [id number] [address] [place] [address] Apr, Bipolar disorder, in partial remission, most recent episode hypomanic F31.71 ; Attention deficit hyperactivity disorder (ADHD), combined type F90.2 ; Anxiety disorder, unspecified type F41.9 and Cannabis abuse F12.10 [facility] [address] [facility] [id number] [address] [place] [id number] 13 Apr, 2017 Attention deficit hyperactiv ity disorder (ADHD), combined type F90.2 [facility] [address] [facility] [id number] [address] [place] [id number] 21 Mar, 2017 Attention deficit hyperactiv ity disorder (ADHD), combined type F90.2 [facility] [address] [facility] [id number] [address] [place] [id number] 14 Mar, 2017 Anxiety disorder, unspecifie d type F41.9 [facility] [address] [facility] [id number] [address] [place] [address] Jan, Attention deficit hyperactiv ity disorder (ADHD), combined type F90.2 [place] [address] [place] [id number] [address] [place] [address] Jan, Anxiety disorder, unspecifie d type F41.9 [facility] [address] [place] [id number] [address] [place] [address] Jan, Other chronic pain G89.29 ; Chronic hepatitis C without hepatic coma B18.2 and Bipolar 1 disorder F31.9 [facility] [address] [place] [id number] [address] [place] [address] Dec, Attention deficit hyperactiv ity disorder (ADHD), combined type F90.2 [facility] [address] [facility] [id number] [address] [place] [phone] Dec, Bipolar disorder, in partial remission, most recent episode hypomanic F31.71 ; Attention deficit hyperactivity disorder (ADHD), combined type F90.2 and Anxiety disorder, unspecified type F41.9 [facility] [address] [facility] [id number] [address] [place] [address] Dec, Bipolar disorder, in partial remission, most recent episode hypomanic F31.71 ; Attention deficit hyperactivity disorder (ADHD), combined type F90.2 and Anxiety disorder, unspecified type F41.9 [facility] [address] [place] [id number] [address] [place] [phone] Dec, Bipolar 1 disorder F31.9 and Attention deficit R41.840 [facility] [address] [facility] [id number] [address] [place] [address] Oct, Other chronic pain G89.29 ; Alopecia L65.9 and Screening, lipid Z13.220 [facility] [address] [facility] [id number] [address] [place] [phone] Oct, [facility] [address] [facility] [id number] [address] [place] [phone] Aug, [facility] [address] [place] [id number] [address] [place] [id number] Aug, Eustachian tube dysfunction, right H69.81 ; Vertigo R42 and Other chronic pain G89.29 [facility] [address] [place] [id number] [address] [place] [id number] Aug, [facility] [address] [facility] [id number] [address] [place] [address] Jun, [facility] [address] [facility] [id number] [address] [place] [address] Jun, Low back pain M54.5 and Othe r chronic pain G89.29 [facility] [address] [facility] [id number] [address] [place] [phone] Jun, [facility] [address] [facility] [id number] [address] [place] [address] May, [facility] [address] [facility] [id number] [address] [place] [phone] Jan, [facility] [address] [facility] [id number] [address] [place] [id number] Dec, [facility] [address] [facility] [id number] [address] [place] [phone] Dec, [facility] [address] [facility] [id number] [address] [place] [phone] Jun, [facility] [address] [id number] [address] [place] [phone] Apr, Eustachian tube dysfunction, unspecified laterality H69.80 ; Hot flashes N95.1 and Encounter for immunization Z23 [facility] [address] [facility] [id number] [address] [place] [phone] Jan, [facility] [address] [id number] [address] [place] [phone] Jan, [facility] [address] [id number] [address] [place] [phone] Jan, [facility] [address] [facility] [id number] [address] [place] [id number] Jan, [facility] [address] [facility] [id number] [address] [place] [address] Jan, Encounter to establish care V65.8 ; Bipolar 1 disorder 296.7 ; Abdominal pain 789.00 ; Constipation 564.00 ; Hard of hearing 389.9 and Drug abuse 305.90 [facility] [address] [facility] [id number] [address] [place] [id number] Dec, [facility] [address] [facility] [id number] [address] [place] [phone] October, [facility] [address] [facility] [id number] [address] [place] [address] October, [facility] [address] [id number] [address] [place] [phone] Oct, [facility] [address] [facility] [id number] [address] [place] [phone] Oct, [facility] [address] [facility] [id number] [address] [place] [phone] Oct, [facility] [address] [facility] [id number] [address] [place] [phone] Aug, [facility] [address] [id number] [address] [place] [address], [place] [address] Aug, [facility] [address] [id number] [address] [place] [address], [place] [address] Aug, [facility] [address] [id number] [address] [place] [address], [place] [address] Aug, 2014 [facility] [address] [id number] [address] [place] [address], [place] [address] Aug, 2014 [facility] [address] [id number] [address] [place] [address], [place] [address] Aug, 2014 [facility] [address] [id number] [address] [place] [address], [place] [address] Aug, 2014 [facility] [address] [id number] [address] [place] [address], [place] [address] Aug, 2014 [facility] [address] [id number] [address] [place] [address], [place] [address] Aug, 2014 [facility] [address] [id number] [address] [place] [address], [place] [address] Aug, 2014 [facility] [address] [id number] [address] [place] [address], [place] [address] Aug, 2014 [facility] [address] [id number] [address] [place] [address], [place] [address] Aug, 2014 [facility] [address] [id number] [address] [place] [address], [place] [address] Aug, 2014 [facility] [address] [id number] [address] [place] [address], [place] [address] Aug, 2014 [facility] [address] [id number] [address] [place] [address], [place] [address] Aug, 2014 [facility] [address] [id number] [address] [place] [address], [place] [address] Jul, [facility] [address] [id number] [address] [place] [address], [place] [address] Jul, [facility] [address] [id number] [address] [place] [address], [place] [address] Jul, [facility] [address] [id number] [address] [place] [address], [place] [address] Jul, [facility] [address] [id number] [address] [place] [address], [place] [address] Jul, [facility] [address] [id number] [address] [place] [address], [place] [address] Jul, [facility] [address] [id number] [address] [place] [address], [place] [address] Jul, [facility] [address] [id number] [address] [place] [address], [place] [address] Jul, [facility] [address] [id number] [address] [place] [address], [place] [address] Jun, [facility] [address] [id number] [address] [place] [address], [place] [address] Jun, [facility] [address] [id number] [address] [place] [address], [place] [address] Jun, [facility] [address] [id number] [address] [place] [address], [place] [address] Jun, [facility] [address] [id number] [address] [place] [address], [place] [address] Jun, [facility] [address] [id number] [address] [place] [address], [place] [address] Jun, [facility] [address] [id number] [address] [place] [address], [place] [address] Jun, [facility] [address] [id number] [address] [place] [address], [place] [address] Jun, [facility] [address] [id number] [address] [place] [address], [place] [address] Jun, [facility] [address] [id number] [address] [place] [address], [place] [address] Jun, [facility] [address] [id number] [address] [place] [address], [place] [address] Jun, [facility] [address] [id number] [address] [place] [address], [place] [address] May, [facility] [address] [id number] [address] [place] [address], [place] [address] May, [facility] [address] [id number] [address] [place] [address], [place] [address] May, [facility] [address] [id number] [address] [place] [address], [place] [address] May, [facility] [address] [id number] [address] [place] [address], [place] [address] May, [facility] [address] [id number] [address] [place] [address], [place] [address] May, [facility] [address] [id number] [address] [place] [address], [place] [address] May, [facility] [address] [id number] [address] [place] [address], [place] [address] Apr, [facility] [address] [id number] [address] [place] [address], [place] [address] Apr, [facility] [address] [id number] [address] [place] [address] Apr, [facility] [address] [id number] [address] [place] [address], [place] [address] Apr, [facility] [address] [id number] [address] [place] [address], [place] [address] Apr, [facility] [address] [id number] [address] [place] [address], [place] [address] Apr, [facility] [address] [id number] [address] [place] [address], [place] [address] 29 Mar, 2013 [facility] [address] [id number] [address] [place] [address], [place] [address] 29 Mar, 2013 [facility] [address] [id number] [address] [place] [address], [place] [address] Mar, [facility] [address] [id number] [address] [place] [address], [place] [address] Mar, [facility] [address] [id number] [address] [place] [address], [place] [address] Mar, [facility] [address] [id number] [address] [place] [address], [place] [address] Mar, [facility] [address] [id number] [address] [place] [address], [place] [address] Jan, [facility] [address] [id number] [address] [place] [address], [place] [address] Jan, [facility] [address] [id number] [address] [place] [address], [place] [address] Jan, [facility] [address] [id number] [address] [place] [address], [place] [address] Jan, [facility] [address] [id number] [address] [place] [address], [place] [address] Dec, [facility] [address] [id number] [address] [place] [address], [place] [address] Dec, [facility] [address] [id number] [address] [place] [address], [place] [address] Dec, [facility] [address] [id number] [address] [place] [address], [place] [address] Dec, [facility] [address] [id number] [address] [place] [address], [place] [address] Dec, [facility] [address] [id number] [address] [place] [address], [place] [address] Dec, [facility] [address] [id number] [facility] [place] [address] Dec, [facility] [address] [id number] [address] [place] [address], [place] [address] Dec, [facility] [address] [id number] [address] [place] [address], [place] [address] Dec, [facility] [address] [id number] [address] [place] [address], [place] [address] Dec, [facility] [address] [id number] [address] [place] [address], [place] [address] Dec, [facility] [address] [id number] [address] [place] [address], [place] [address] Dec, [facility] [address] [id number] [address] [place] [address], [place] [address] October, [facility] [address] [id number] [address] [place] [address], [place] [address] October, [facility] [address] [id number] [address] [place] [address], [place] [address] October, [facility] [address] [id number] [address] [place] [address], [place] [address] October, [facility] [address] [id number] [address] [place] [address], [place] [address] October, [facility] [address] [id number] [address] [place] [address], [place] [address] October, [facility] [address] [id number] [address] [place] [address], [place] [address] Oct, [facility] [address] [id number] [address] [place] [address], [place] [address] Oct, [facility] [address] [id number] [address] [place] [address], [place] [address] Oct, [facility] [address] [id number] [address] [place] [address], [place] [address] Oct, [facility] [address] [id number] [facility] [address] Oct, [facility] [address] [id number] [address] [place] [address], [place] [address] Oct, [facility] [address] [id number] [address] [place] [address], [place] [address] Oct, [facility] [address] [id number] [address] [place] [address], [place] [address] Oct, [facility] [address] [id number] [address] [place] [address], [place] [address] Oct, [facility] [address] [id number] [address] [place] [address], [place] [address] Oct, [facility] [address] [id number] [address] [place] [address], [place] [address] Oct, [facility] [address] [id number] [address] [place] [address], [place] [address] Oct, [facility] [address] [id number] [address] [place] [address], [place] [address] Aug, [facility] [address] [id number] [address] [place] [address], [place] [address] Aug, [facility] [address] [id number] [address] [place] [address], [place] [address] Aug, [facility] [address] [id number] [address] [place] [address], [place] [address] Aug, [facility] [address] [id number] [address] [place] [address], [place] [address] 05 Aug, 2013 [facility] [address] [id number] [address] [place] [address], [place] [address] 05 Aug, 2013 [facility] [address] [id number] [address] [place] [address], [place] [address] Aug, [facility] [address] [id number] [address] [place] [address], [place] [address] Aug, [facility] [address] [id number] [address] [place] [address], [place] [address] Aug, [facility] [address] [id number] [address] [place] [address], [place] [address] Aug, [facility] [address] [id number] [address] [place] [address], [place] [address] 24 Aug, 2013 [facility] [address] [id number] [address] [place] [address], [place] [address] Aug, [facility] [address] [id number] [address] [place] [address], [place] [address] Aug, [facility] [address] [id number] [address] [place] [address], [place] [address] 20 Aug, 2013 [facility] [address] [id number] [address] [place] [address], [place] [address] 14 Aug, 2013 [facility] [address] [id number] [address] [place] [address], [place] [address] Aug, [facility] [address] [id number] [address] [place] [address], [place] [address] Aug, [facility] [address] [id number] [address] [place] [address], [place] [address] Aug, [facility] [address] [id number] [address] [place] [address], [place] [address] Aug, [facility] [address] [id number] [address] [place] [address], [place] [address] Aug, [facility] [address] [id number] [address] [place] [address], [place] [address] Aug, [facility] [address] [id number] [address] [place] [address], [place] [address] Aug, [facility] [address] [id number] [address] [place] [address], [place] [address] Aug, [facility] [address] [id number] [address] [place] [address], [place] [address] Aug, [facility] [address] [id number] [address] [place] [address], [place] [address] Aug, [facility] [address] [id number] [address] [place] [address], [place] [address] Jul, [facility] [address] [id number] [address] [place] [address], [place] [address] Jul, [facility] [address] [id number] [address] [place] [address], [place] [address] Jul, [facility] [address] [id number] [address] [place] [address], [place] [address] Jul, [facility] [address] [id number] [address] [place] [address], [place] [address] Jul, [facility] [address] [id number] [address] [place] [address], [place] [address] Jul, [facility] [address] [id number] [address] [place] [address], [place] [address] Jul, [facility] [address] [id number] [address] [place] [address], [place] [address] Jul, [facility] [address] [id number] [address] [place] [address], [place] [address] Jul, [facility] [address] [id number] [address] [place] [address], [place] [address] Jul, [facility] [address] [id number] [address] [place] [address], [place] [address] Jul, [facility] [address] [id number] [address] [place] [address], [place] [address] Jul, [facility] [address] [id number] [address] [place] [address], [place] [address] Jul, [facility] [address] [id number] [address] [place] [address], [place] [address] Jul, [facility] [address] [id number] [address] [place] [address], [place] [address] Jul, [facility] [address] [id number] [address] [place] [address], [place] [address] Jul, [facility] [address] [id number] [address] [place] [address], [place] [address] Jul, [facility] [address] [id number] [address] [place] [address], [place] [address] Jul, [facility] [address] [id number] [address] [place] [address], [place] [address] Jul, [facility] [address] [id number] [address] [place] [address], [place] [address] Jul, [facility] [address] [id number] [address] [place] [address], [place] [address] Jun, [facility] [address] [id number] [address] [place] [address], [place] [address] Jun, [facility] [address] [id number] [address] [place] [address], [place] [address] Jun, [facility] [address] [id number] [address] [place] [address], [place] [address] Jun, [facility] [address] [id number] [address] [place] [address], [place] [address] Jun, [facility] [address] [id number] [address] [place] [address], [place] [address] Jun, [facility] [address] [id number] [address] [place] [address], [place] [address] Jun, [facility] [address] [id number] [address] [place] [address], [place] [address] Jun, [facility] [address] [id number] [address] [place] [address], [place] [address] 24 Jun, 2013 [facility] [address] [id number] [address] [place] [address], [place] [address] Jun, [facility] [address] [id number] [address] [place] [address], [place] [address] Jun, [facility] [address] [id number] [address] [place] [address], [place] [address] Jun, [facility] [address] [id number] [address] [place] [address], [place] [address] Jun, [facility] [address] [id number] [address] [place] [address], [place] [address] Jun, [facility] [address] [id number] [address] [place] [address], [place] [address] Jun, [facility] [address] [id number] [address] [place] [address], [place] [address] 18 Jun, 2013 [facility] [address] [id number] [address] [place] [address], [place] [address] 18 Jun, 2013 [facility] [address] [id number] [address] [place] [address], [place] [address] 17 Jun, 2013 [facility] [address] [id number] [address] [place] [address], [place] [address] 17 Jun, 2013 [facility] [place] [address] [id number] [address] [place] [address], [place] [address] 13 Jun, 2013 [facility] [address] [id number] [address] [place] [address], [place] [address] 12 Jun, 2013 [facility] [address] [id number] [address] [place] [address], [place] [address] 12 Jun, 2013 [facility] [address] [id number] [address] [place] [address], [place] [address] 09 Jun, 2013 [facility] [address] [id number] [address] [place] [address], [place] [address] 05 Jun, 2013 [facility] [address] [id number] [address] [place] [address], [place] [address] 05 Jun, 2013 [facility] [address] [id number] [address] [place] [address], [place] [address] Jun, [facility] [address] [id number] [address] [place] [address], [place] [address] Jun, [facility] [address] [id number] [address] [place] [address], [place] [address] May, [facility] [address] [id number] [address] [place] [address], [place] [address] May, [facility] [address] [id number] [address] [place] [address], [place] [address] May, [facility] [address] [id number] [address] [place] [address], [place] [address] May, [facility] [address] [id number] [address] [place] [address], [place] [address] May, [facility] [address] [id number] [address] [place] [address], [place] [address] May, [facility] [address] [id number] [address] [place] [address], [place] [address] Apr, [facility] [address] [id number] [address] [place] [address], [place] [address] 30 Apr, 2013 [facility] [address] [id number] [address] [place] [address], [place] [address] 30 Apr, 2013 [facility] [address] [id number] [address] [place] [address], [place] [address] 30 Apr, 2013 [facility] [address] [id number] [address] [place] [address], [place] [address] Apr, [facility] [address] [id number] [address] [place] [address], [place] [address] 15 Apr, 2013 [facility] [address] [id number] [address] [place] [address], [place] [address] 15 Apr, 2013 [facility] [address] [id number] [address] [place] [address], [place] [address] Apr, [facility] [address] [id number] [address] [place] [address], [place] [address] 26 Mar, 2012 [facility] [address] [id number] [address] [place] [address], [place] [address] 24 Mar, 2012 [facility] [address] [id number] [address] [place] [address], [place] [address] 17 Mar, 2012 [facility] [address] [id number] [address] [place] [address], [place] [address] 17 Mar, 2012 [facility] [address] [id number] [address] [place] [address], [place] [address] 11 Mar, 2013 [facility] [address] [id number] [address] [place] [address], [place] [address] 10 Mar, 2012 [facility] [address] [id number] [address] [place] [address], [place] [address] 05 Mar, 2013 [facility] [address] [id number] [address] [place] [address], [place] [address] 04 Mar, 2013 [facility] [address] [id number] [address] [place] [address], [place] [address] 20 Jan, 2013 [facility] [address] [id number] [address] [place] [address], [place] [address] Jan, [facility] [address] [id number] [address] [place] [address], [place] [address] 14 Jan, 2013 [facility] [address] [id number] [address] [place] [address], [place] [address] Jan, [facility] [address] [id number] [address] [place] [address], [place] [address] Jan, [facility] [address] [id number] [address] [place] [address], [place] [address] 05 Jan, 2013 [facility] [address] [id number] [address] [place] [address], [place] [address] 31 Dec, 2012 [facility] [address] [id number] [address] [place] [address], [place] [address] 24 Dec, 2012 [facility] [address] [id number] [address] [place] [address], [place] [address] 22 Dec, 2012 [facility] [address] [id number] [address] [place] [address], [place] [address] 19 Dec, 2012 [facility] [address] [id number] [address] [place] [address], [place] [address] 18 Dec, 2012 [facility] [address] [id number] [address] [place] [address], [place] [address] 17 Dec, 2012 [facility] [address] [id number] [address] [place] [address], [place] [address] 16 Dec, 2012 [facility] [address] [id number] [address] [place] [address], [place] [address] 16 Dec, 2012 [facility] [address] [id number] [address] [place] [address], [place] [address] 15 Dec, 2012 [facility] [address] [id number] [address] [place] [address], [place] [address] 10 Dec, 2012 [facility] [address] [id number] [address] [place] [address], [place] [address] 28 Dec, 2012 [facility] [address] [id number] [address] [place] [address], [place] [address] 25 Dec, 2012 [facility] [address] [id number] [address] [place] [address], [place] [address] 19 Dec, 2012 [facility] [address] [id number] [address] [place] [address], [place] [address] 17 Dec, 2012 [facility] [address] [id number] [address] [place] [address], [place] [address] 13 Dec, 2012 [facility] [address] [id number] [address] [place] [address], [place] [address] 11 Dec, 2012 [facility] [address] [id number] [address] [place] [address], [place] [address] October, [facility] [address] [id number] [address] [place] [address], [place] [address] October, [facility] [address] [id number] [address] [place] [address], [place] [address] October, [facility] [address] [id number] [address] [place] [address], [place] [address] October, [facility] [address] [id number] [address] [place] [address], [place] [address] October, [facility] [address] [id number] [address] [place] [address], [place] [address] October, [facility] [address] [id number] [address] [place] [address], [place] [address] October, [facility] [address] [id number] [address] [place] [address], [place] [address] Oct, [facility] [address] [id number] [address] [place] [address], [place] [address] Oct, [facility] [address] [id number] [address] [place] [address], [place] [address] Oct, [facility] [address] [id number] [address] [place] [address], [place] [address] Oct, [facility] [address] [id number] [address] [place] [address], [place] [address] Oct, [facility] [address] [id number] [address] [place] [address], [place] [address] 18 Oct, 2012 [facility] [address] [id number] [address] [place] [address], [place] [address] 17 Oct, 2012 [facility] [address] [id number] [address] [place] [address], [place] [address] 15 Oct, 2012 [facility] [address] [id number] [address] [place] [address], [place] [address] Oct, [facility] [address] [id number] [address] [place] [address], [place] [address] Oct, [facility] [address] [id number] [address] [place] [address], [place] [address] Oct, [facility] [address] [id number] [address] [place] [address], [place] [address] Oct, [facility] [address] [id number] [address] [place] [address], [place] [address] Aug, [facility] [address] [id number] [address] [place] [address], [place] [address] Aug, [facility] [address] [id number] [address] [place] [address], [place] [address] Aug, [facility] [address] [id number] [address] [place] [address], [place] [address] Aug, [facility] [address] [id number] [address] [place] [address], [place] [address] Aug, [facility] [address] [id number] [address] [place] [address], [place] [address] Aug, [facility] [address] [id number] [address] [place] [address], [place] [address] Aug, [facility] [address] [id number] [address] [place] [address], [place] [address] Aug, [facility] [address] [id number] [address] [place] [address], [place] [address] Aug, [facility] [address] [id number] [address] [place] [address], [place] [address] Aug, [facility] [address] [id number] [address] [place] [address], [place] [address] Jul, [facility] [address] [id number] [address] [place] [address], [place] [address] Jul, [facility] [address] [id number] [address] [place] [address], [place] [address] 08 Jul, 2012 [facility] [address] [id number] [address] [place] [address], [place] [address] 20 Jun, 2012 [facility] [place] [address] [id number] [address] [place] [address], [place] [address] 18 Jun, 2012 [facility] [address] [id number] [address] [place] [address], [place] [address] 18 Jun, 2012 [facility] [place] [address] [id number] [address] [place] [address], [place] [address] 18 Jun, 2012 [facility] [place] [address] [id number] [address] [place] [address], [place] [address] 18 Jun, 2012 [facility] [address] [id number] [address] [place] [address], [place] [address] 14 Jun, 2012 [facility] [address] [id number] [address] [place] [address], [place] [address] 14 Jun, 2012 [facility] [address] [id number] [address] [place] [address], [place] [address] 13 Jun, 2012 [facility] [address] [id number] [address] [place] [address], [place] [address] 13 Jun, 2012 [facility] [address] [id number] [address] [place] [address], [place] [address] 11 Jun, 2012 [facility] [address] [id number] [address] [place] [address], [place] [address] 11 Jun, 2012 [facility] [address] [id number] [address] [place] [address], [place] [address] 11 Jun, 2012 [facility] [address] [id number] [address] [place] [address], [place] [address] 11 Jun, 2012 [facility] [address] [id number] [address] [place] [address], [place] [address] 07 Jun, 2012 [facility] [address] [id number] [address] [place] [address], [place] [address] Jun, [facility] [address] [id number] [address] [place] [address], [place] [address] Jun, [facility] [address] [id number] [address] [place] [address], [place] [address] Jun, [facility] [address] [id number] [address] [place] [address], [place] [address] Jun, [facility] [address] [id number] [address] [place] [address], [place] [address] Jun, [facility] [address] [id number] [address] [place] [address], [place] [address] Jun, [facility] [address] [id number] [address] [place] [address], [place] [address] Jun, [facility] [address] [id number] [address] [place] [address], [place] [address] Jun, [facility] [address] [id number] [address] [place] [address], [place] [address] Jun, [facility] [address] [id number] [address] [place] [address], [place] [address] May, [facility] [address] [id number] [address] [place] [address], [place] [address] May, [facility] [address] [id number] [address] [place] [address], [place] [address] May, [facility] [address] [id number] [address] [place] [address], [place] [address] May, [facility] [address] [id number] [address] [place] [address], [place] [address] May, [facility] [address] [id number] [address] [place] [address], [place] [address] May, [facility] [address] [id number] [address] [place] [address], [place] [address] May, [facility] [address] [id number] [address] [place] [address] May, [facility] [address] [id number] [address] [place] [address], [place] [address] 30 Apr, 2012 [facility] [address] [id number] [address] [place] [address] 30 Apr, 2012 [facility] [address] [id number] [address] [place] [address], [place] [id number] 29 Apr, 2012 [facility] [address] [id number] [address] [place] [id number] Apr, [facility] [address] [id number] [address] [place] [address], [place] [address] Apr, [facility] [address] [id number] [address] [place] [id number] Apr, [facility] [address] [id number] [address] [place] [id number] Apr, [facility] [address] [id number] [address] [place] [id number] Apr, [facility] [address] [id number] [address] [place] [id number] Apr, [facility] [address] [id number] [address] [place] [id number] 08 Apr, 2012 [facility] [address] [id number] [address] [place] [id number] 04 Apr, 2012 [facility] [address] [id number] [address] [place] [id number] 02 Apr, 2012 [facility] [address] [id number] [address] [place] [id number] 19 Mar, 2012 [facility] [address] [id number] [address] [place] [id number] 18 Mar, 2012 [facility] [address] [id number] [address] [place] [id number] 12 Mar, 2012 [facility] [address] [id number] [address] [place] [address], [place] [address] Mar, [facility] [address] [id number] [address] [place] [id number] Mar, [facility] [address] [id number] [address] [place] [address], [place] [id number] Mar, [facility] [address] [id number] [address] [place] [address], [place] [address] Mar, [facility] [address] [id number] [address] [place] [address], [place] [address] Jan, [facility] [address] [id number] [address] [place] [address], [place] [address] Jan, [facility] [address] [id number] [address] [place] [address], [place] [id number] Jan, [facility] [address] [id number] [address] [place] [id number] Jan, [facility] [address] [id number] [address] [place] [address], [place] [address] Jan, [facility] [address] [id number] [address] [place] [address], [place] [address] Jan, [facility] [address] [id number] [address] [place] [address], [place] [address] Jan, [facility] [address] [id number] [address] [place] [address], [place] [address] Jan, [facility] [address] [id number] [address] [place] [address], [place] [address] Jan, [facility] [address] [id number] [address] [place] [address], [place] [address] Jan, [facility] [address] [id number] [address] [place] [address], [place] [address] Jan, [facility] [address] [id number] [address] [place] [address], [place] [address] Dec, [facility] [address] [id number] [address] [place] [address], [place] [address] 27 Jan, 2012 [facility] [address] [id number] [address] [place] [address], [place] [address] Dec, [facility] [address] [id number] [address] [place] [address], [place] [address] 26 Jan, 2012 [facility] [address] [id number] [address] [place] [address], [place] [address] 20 Jan, 2012 [facility] [address] [id number] [address] [place] [address], [place] [address] 19 Jan, 2012 [facility] [address] [id number] [address] [place] [address], [place] [address] 18 Jan, 2012 [facility] [address] [id number] [address] [place] [address], [place] [address] 17 Jan, 2012 [facility] [address] [id number] [address] [place] [address], [place] [address] 16 Jan, 2012 [facility] [address] [id number] [address] [place] [address], [place] [address] Dec, [facility] [address] [id number] [address] [place] [address], [place] [address] Dec, [facility] [address] [id number] [address] [place] [address], [place] [address] Dec, [facility] [address] [id number] [address] [place] [address], [place] [address] Dec, [facility] [address] [id number] [address] [place] [address], [place] [address] Dec, [facility] [address] [id number] [address] [place] [address], [place] [address] Dec, [facility] [address] [id number] [address] [place] [address], [place] [address] 18 Dec, 2011 [facility] [address] [id number] [address] [place] [address], [place] [address] Dec, [facility] [address] [id number] [address] [place] [address], [place] [address] Dec, [facility] [address] [id number] [address] [place] [address], [place] [address] Dec, [facility] [address] [id number] [address] [place] [address], [place] [address] October, [facility] [address] [id number] [address] [place] [address], [place] [address] October, [facility] [address] [id number] [address] [place] [address], [place] [address] October, [facility] [address] [id number] [address] [place] [address], [place] [address] October, [facility] [address] [id number] [address] [place] [address], [place] [address] October, [facility] [address] [id number] [address] [place] [address], [place] [address] October, [facility] [address] [id number] [address] [place] [address], [place] [address] Oct, [facility] [address] [id number] [address] [place] [address], [place] [address] Oct, [facility] [address] [id number] [address] [place] [address], [place] [address] Oct, [facility] [address] [id number] [address] [place] [address], [place] [address] Oct, [facility] [address] [id number] [address] [place] [address], [place] [address] Oct, [facility] [address] [id number] [address] [place] [address], [place] [address] Oct, [facility] [address] [id number] [address] [place] [address], [place] [address] Oct, [facility] [address] [id number] [address] [place] [address], [place] [address] 29 Sep, 2011 [facility] [address] [id number] [address] [place] [address], [place] [address] 29 Sep, 2011 [facility] [address] [id number] [address] [place] [address], [place] [address] 19 Sep, 2011 [facility] [address] [id number] [address] [place] [address], [place] [address] 13 Sep, 2011 [facility] [address] [id number] [address] [place] [address], [place] [address] 05 Sep, 2011 [facility] [address] [id number] [address] [place] [address], [place] [address] 05 Sep, 2011 [facility] [address] [id number] [address] [place] [address], [place] [address] 27 Aug, 2011 [facility] [address] [id number] [address] [place] [address], [place] [address] 20 Aug, 2011 [facility] [address] [id number] [address] [place] [address], [place] [address] 08 Aug, 2011 [facility] [address] [id number] [address] [place] [address], [place] [address] 31 Jul, 2011 [facility] [address] [id number] [address] [place] [address], [place] [address] Jul, [facility] [address] [id number] [address] [place] [address], [place] [address] Jul, [facility] [address] [id number] [address] [place] [address], [place] [address] Jul, [facility] [address] [id number] [address] [place] [address], [place] [address] 28 Jun, 2011 [facility] [address] [id number] [address] [place] [address], [place] [address] 12 Jun, 2011 [facility] [address] [id number] [address] [place] [address], [place] [address] May, [facility] [address] [id number] [address] [place] [address] May, [facility] [address] [id number] [address] [place] [address] May, [facility] [address] [id number] [address] [place] [address] May, [facility] [address] [id number] [address] [place] [id number] May, [facility] [address] [id number] [address] [place] [address] Apr, [facility] [address] [id number] [address] [place] [address] Apr, [facility] [address] [id number] [address] [place] [address] Apr, [facility] [address] [id number] [address] [place] [id number] Jan, [facility] [address] [id number] [address] [place] [address] Dec, [facility] [address] [id number] [address] [place] [address] October, [facility] [address] [id number] [address] [place] [address] Jun, [facility] [address] [id number] [address] [place] [address] Apr, [facility] [address] [id number] [address] [place] [id number] Apr, [facility] [address] [id number] [address] [place] [id number] Apr, [facility] [address] [id number] [address] [place] [id number] Jun, IMMUNIZATIONS No Known Immunizations SOCIAL HISTORY [...]
--- OUTSIDE RECORDS SUMMARY | 2020-01-25 12:45 | XMS REPORT ---
Author Author Ana Perez Organization [facility] Address [address] [place] [address] Care Team Providers Care Bottling Room Worker Name Role Phone ISRRAEL Perez Unavailable PROBLEMS Type Condition ICD9-CM Code SEN55-EU Code Onset Dates Condition S tatus SNOMED Code Problem Attention deficit R41.840 Active 76 325256 Problem Chronic hepatitis C without hepatic coma B18.2 Active 770334865 Problem Cannabis abuse F12.10 Active 48798 009 Problem Bipolar disorder, in partial remission, most rec ent episode hypomanic F31.71 Active 156333634 Problem Attention deficit hyperactivity disorder (ADHD), combi luciano type F90.2 Active 62531985 Problem Bipolar 1 disorder F31.9 Active 3 53740213 Problem H/O laminectomy Z98.89 Active 1616 48374 Problem Other chronic pain G89.29 Active 8 3193195 Problem Anxiety disorder, unspecified type F41.9 Active [id number] ALLERGIES No Information ENCOUNTERS Encounter Location Date Diagnosis [facility] [address] [facility] [id number] [address] [place] [id number] Dec, [facility] [address] [facility] [id number] [address] [place] [id number] October, [facility] [address] [facility] [id number] [address] [place] [phone] October, [facility] [address] [facility] [id number] [address] [place] [phone] October, [facility] [address] [facility] [id number] [address] [place] [id number] October, Other chronic pain G89.29 an d Chronic hepatitis C without hepatic coma B18.2 [facility] [address] [facility] [id number] [address] [place] [id number] Aug, Bipolar disorder, in partial remission, most recent episode hypomanic F31.71 ; Attention deficit hyperactivity disorder (ADHD), combined type F90.2 and Anxiety disorder, unspecified type F41.9 [facility] [address] [id number] [address] [place] [phone] Aug, [facility] [address] [id number] [address] [place] [id number] Aug, Bipolar disorder, in partial remission, most recent episode hypomanic F31.71 [facility] [address] [id number] [address] [place] [id number] Aug, [facility] [address] [id number] [address] [place] [phone] Aug, Bipolar disorder, in partial remission, most recent episode hypomanic F31.71 [facility] [address] [id number] [address] [place] [id number] Aug, Bipolar disorder, in partial remission, most recent episode hypomanic F31.71 ; Attention deficit hyperactivity disorder (ADHD), combined type F90.2 and Anxiety disorder, unspecified type F41.9 [facility] [address] [id number] [address] [place] [phone] Aug, Low back pain M54.5 and Pain in left wrist M25.532 [facility] [address] [id number] [address] [place] [id number] Aug, [facility] [address] [id number] [address] [place] [id number] Jun, [facility] [address] [id number] [address] [place] [id number] Apr, Bipolar disorder, in partial remission, most recent episode hypomanic F31.71 [facility] [address] [id number] [address] [place] [phone] Apr, [facility] [address] [id number] [address] [place] [id number] Apr, Bipolar disorder, in partial remission, most recent episode hypomanic F31.71 ; Attention deficit hyperactivity disorder (ADHD), combined type F90.2 ; Anxiety disorder, unspecified type F41.9 and 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 [facility] [address] [id number] [address] [place] [id number] Apr, Bipolar disorder, in partial remission, most recent episode hypomanic F31.71 [facility] [address] [id number] [address] [place] [id number] Apr, Bipolar disorder, in partial remission, most recent episode hypomanic F31.71 [facility] [address] [id number] [address] [place] [id number] Mar, [facility] [address] [facility] [id number] [address] [place] [id number] Mar, Bipolar disorder, in partial remission, most recent episode hypomanic F31.71 ; Encounter for immunization Z23 and Low back pain M54.5 [facility] [address] [id number] [address] [place] [phone] Mar, Bipolar disorder, in partial remission, most recent episode hypomanic F31.71 [facility] [address] [id number] [address] [place] [id number] Mar, Bipolar disorder, in partial remission, most recent episode hypomanic F31.71 [facility] [address] [facility] [id number] [address] [place] [id number] Jan, Bipolar disorder, in partial remission, most recent episode hypomanic F31.71 [facility] [address] [facility] [id number] [address] [place] [id number] Jan, Bipolar disorder, in partial remission, most recent episode hypomanic F31.71 [facility] [address] [id number] [address] [place] [phone] Dec, Bipolar disorder, in partial remission, most recent episode hypomanic F31.71 [facility] [address] [id number] [address] [place] [id number] Dec, Bipolar disorder, in partial remission, most recent episode hypomanic F31.71 ; Attention deficit hyperactivity disorder (ADHD), combined type F90.2 ; Anxiety disorder, unspecified type F41.9 and 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 [facility] [address] [id number] [address] [place] [id number] Dec, Bipolar disorder, in partial remission, most recent episode hypomanic F31.71 [facility] [address] [id number] [address] [place] [phone] Dec, Bipolar disorder, in partial remission, most recent episode hypomanic F31.71 [facility] [address] [id number] [address] [place] [id number] October, Bipolar disorder, in partial remission, most recent episode hypomanic F31.71 [facility] [address] [id number] [address] [place] [phone] October, [facility] [address] [id number] [address] [place] [phone] October, [facility] [address] [id number] [address] [place] [id number] Oct, Bipolar disorder, in partial remission, most recent episode hypomanic F31.71 ; Attention deficit hyperactivity disorder (ADHD), combined type F90.2 ; Anxiety disorder, unspecified type F41.9 and Encounter for drug screening Z02.83 [facility] [address] [id number] [address] [place] [phone] Oct, Bipolar disorder, in partial remission, most recent episode hypomanic F31.71 [facility] [address] [id number] [address] [place] [id number] Oct, Bipolar disorder, in partial remission, most recent episode hypomanic F31.71 [facility] [address] [id number] [address] [place] [id number] Aug, Bipolar disorder, in partial remission, most recent episode hypomanic F31.71 [facility] [address] [facility] [id number] [address] [place] [id number] Aug, Bipolar disorder, in partial remission, most recent episode hypomanic F31.71 [facility] [address] [facility] [id number] [address] [place] [id number] Aug, Bipolar disorder, in partial remission, most recent episode hypomanic F31.71 [facility] [address] [id number] [address] [place] [id number] Jul, Bipolar disorder, in partial remission, most recent episode hypomanic F31.71 ; Attention deficit hyperactivity disorder (ADHD), combined type F90.2 and Anxiety disorder, unspecified type F41.9 [facility] [address] [facility] [id number] [address] [place] [id number] Jul, Bipolar disorder, in partial remission, most recent episode hypomanic F31.71 [facility] [address] [facility] [id number] [address] [place] [id number] Jun, Bipolar disorder, in partial remission, most recent episode hypomanic F31.71 [facility] [address] [facility] [id number] [address] [place] [id number] May, Bipolar disorder, in partial remission, most recent episode hypomanic F31.71 [facility] [address] [facility] [id number] [address] [place] [id number] May, Bipolar disorder, in partial remission, most recent episode hypomanic F31.71 [facility] [address] [facility] [id number] [address] [place] [id number] Apr, [facility] [address] [facility] [id number] [address] [place] [id number] Apr, Bipolar disorder, in partial remission, most recent episode hypomanic F31.71 ; Attention deficit hyperactivity disorder (ADHD), combined type F90.2 ; Anxiety disorder, unspecified type F41.9 and Cannabis abuse F12.10 [facility] [address] [facility] [id number] [address] [place] [id number] 13 Apr, 2017 Attention deficit hyperactiv ity disorder (ADHD), combined type F90.2 [facility] [address] [facility] [id number] [address] [place] [phone] Mar, Attention deficit hyperactiv ity disorder (ADHD), combined type F90.2 [facility] [address] [facility] [id number] [address] [place] [phone] 14 Mar, 2017 Anxiety disorder, unspecifie d type F41.9 [facility] [address] [facility] [id number] [address] [place] [phone] Jan, Attention deficit hyperactiv ity disorder (ADHD), combined type F90.2 [facility] [address] [facility] [id number] [address] [place] [id number] Jan, Anxiety disorder, unspecifie d type F41.9 [facility] [address] [facility] [id number] [address] [place] [id number] Jan, Other chronic pain G89.29 ; Chronic hepatitis C without hepatic coma B18.2 and Bipolar 1 disorder F31.9 [facility] [address] [facility] [id number] [address] [place] [id number] Dec, Attention deficit hyperactiv ity disorder (ADHD), combined type F90.2 [facility] [address] [facility] [id number] [address] [place] [id number] Dec, Bipolar disorder, in partial remission, most recent episode hypomanic F31.71 ; Attention deficit hyperactivity disorder (ADHD), combined type F90.2 and Anxiety disorder, unspecified type F41.9 [facility] [address] [facility] [id number] [address] [place] [id number] Dec, Bipolar disorder, in partial remission, most recent episode hypomanic F31.71 ; Attention deficit hyperactivity disorder (ADHD), combined type F90.2 and Anxiety disorder, unspecified type F41.9 [facility] [address] [id number] [address] [place] [id number] Dec, Bipolar 1 disorder F31.9 and Attention deficit R41.840 [facility] [address] [facility] [id number] [address] [place] [phone] Oct, Other chronic pain G89.29 ; Alopecia L65.9 and Screening, lipid Z13.220 [facility] [address] [facility] [id number] [address] [place] [id number] Oct, [facility] [address] [facility] [id number] [address] [place] [id number] Aug, [facility] [address] [place] [id number] [address] [place] [id number] Aug, Eustachian tube dysfunction, right H69.81 ; Vertigo R42 and Other chronic pain G89.29 [facility] [address] [place] [id number] [address] [place] [id number] Aug, [facility] [address] [facility] [id number] [address] [place] [id number] Jun, [facility] [address] [place] [id number] [address] [place] [id number] Jun, Low back pain M54.5 and Othe r chronic pain G89.29 [facility] [address] [facility] [id number] [address] [place] [phone] Jun, [facility] [address] [facility] [id number] [address] [place] [phone] May, [facility] [address] [facility] [id number] [address] [place] [phone] Jan, [facility] [address] [facility] [id number] [address] [place] [phone] Dec, [facility] [address] [place] [id number] [address] [place] [phone] Dec, [facility] [address] [facility] [id number] [address] [place] [phone] Jun, [facility] [address] [facility] [id number] [address] [place] [id number] Apr, Eustachian tube dysfunction, unspecified laterality H69.80 ; Hot flashes N95.1 and Encounter for immunization Z23 [facility] [address] [facility] [id number] [address] [place] [phone] Jan, [facility] [address] [facility] [id number] [address] [place] [id number] Jan, [facility] [address] [facility] [id number] [address] [place] [phone] Jan, [facility] [address] [place] [id number] [place] [phone] Jan, [facility] [address] [place] [id number] [place] [phone] Jan, Encounter to establish care V65.8 ; Bipolar 1 disorder 296.7 ; Abdominal pain 789.00 ; Constipation 564.00 ; Hard of hearing 389.9 and Drug abuse 305.90 [facility] [address] [place] [id number] [address] [place] [id number] Dec, [facility] [address] [facility] [id number] [address] [place] [phone] October, [facility] [address] [facility] [id number] [address] [place] [id number] October, [facility] [address] [facility] [id number] [address] [place] [phone] Oct, [facility] [address] [place] [id number] [address] [place] [phone] Oct, [facility] [address] [facility] [id number] [address] [place] [phone] Oct, [facility] [address] [place] [id number] [address] [place] [id number] Aug, [facility] [address] [id number] [address] [place] [address], [place] [address] Aug, [facility] [address] [id number] [address] [place] [address], [place] [address] Aug, [facility] [address] [id number] [address] [place] [address], [place] [address] Aug, 2014 [facility] [address] [id number] [address] [place] [address], [place] [address] Aug, 2014 [facility] [address] [id number] [address] [place] [address], [place] [address] Aug, 2014 [facility] [address] [id number] [address] [place] [address], [place] [address] Aug, 2014 [facility] [address] [id number] [address] [place] [address], [place] [address] Aug, 2014 [facility] [address] [id number] [address] [place] [address], [place] [address] Aug, 2014 [facility] [address] [id number] [address] [place] [address], [place] [address] Aug, 2014 [facility] [address] [id number] [address] [place] [address], [place] [address] Aug, 2014 [facility] [address] [id number] [address] [place] [address], [place] [address] Aug, 2014 [facility] [address] [id number] [address] [place] [address], [place] [address] Aug, 2014 [facility] [address] [id number] [address] [place] [address], [place] [address] Aug, 2014 [facility] [address] [id number] [address] [place] [address], [place] [address] Aug, 2014 [facility] [address] [id number] [address] [place] [address], [place] [address] Jul, [facility] [address] [id number] [address] [place] [address], [place] [address] Jul, [facility] [address] [id number] [address] [place] [address], [place] [address] Jul, [facility] [address] [id number] [address] [place] [address], [place] [address] Jul, [facility] [address] [id number] [address] [place] [address], [place] [address] Jul, [facility] [address] [id number] [address] [place] [address], [place] [address] Jul, [facility] [address] [id number] [address] [place] [address], [place] [address] Jul, [facility] [address] [id number] [address] [place] [address], [place] [address] Jul, [facility] [address] [id number] [address] [place] [address], [place] [address] Jun, [facility] [address] [id number] [address] [place] [address], [place] [address] Jun, [facility] [address] [id number] [address] [place] [address], [place] [address] Jun, [facility] [address] [id number] [address] [place] [address], [place] [address] Jun, [facility] [address] [id number] [address] [place] [address], [place] [address] 18 Jun, 2014 [facility] [address] [id number] [address] [place] [address], [place] [address] 15 Jun, 2014 [facility] [address] [id number] [address] [place] [address], [place] [address] Jun, [facility] [address] [id number] [address] [place] [address], [place] [address] Jun, [facility] [address] [id number] [address] [place] [address], [place] [address] Jun, [facility] [address] [id number] [address] [place] [address], [place] [address] Jun, [facility] [address] [id number] [address] [place] [address], [place] [address] Jun, [facility] [address] [id number] [address] [place] [address], [place] [address] May, [facility] [address] [id number] [address] [place] [address], [place] [address] May, [facility] [address] [id number] [address] [place] [address], [place] [address] May, [facility] [address] [id number] [address] [place] [address], [place] [address] May, [facility] [address] [id number] [address] [place] [address], [place] [address] May, [facility] [address] [id number] [address] [place] [address], [place] [address] May, [facility] [address] [id number] [address] [place] [address], [place] [address] May, [facility] [address] [id number] [address] [place] [address], [place] [address] Apr, [facility] [address] [id number] [address] [place] [address], [place] [address] Apr, [facility] [address] [id number] [address] [place] [address] Apr, [facility] [address] [id number] [address] [place] [address], [place] [address] Apr, [facility] [address] [id number] [address] [place] [address], [place] [address] Apr, [facility] [address] [id number] [address] [place] [address], [place] [address] Apr, [facility] [address] [id number] [facility] [place] [address] 29 Mar, 2013 [facility] [address] [id number] [address] [place] [address], [place] [address] Mar, [facility] [address] [id number] [address] [place] [address], [place] [address] Mar, [facility] [address] [id number] [address] [place] [address], [place] [address] Mar, [facility] [address] [id number] [address] [place] [address], [place] [address] Mar, [facility] [address] [id number] [address] [place] [address], [place] [address] Mar, [facility] [address] [id number] [address] [place] [address], [place] [address] Jan, [facility] [address] [id number] [address] [place] [address], [place] [address] Jan, [facility] [address] [id number] [address] [place] [address], [place] [address] Jan, [facility] [address] [id number] [address] [place] [address], [place] [address] Jan, [facility] [address] [id number] [address] [place] [address], [place] [address] Dec, [facility] [address] [id number] [address] [place] [address], [place] [address] Dec, [facility] [address] [id number] [address] [place] [address], [place] [address] Dec, [facility] [address] [id number] [address] [place] [address], [place] [address] Dec, [facility] [address] [id number] [address] [place] [address], [place] [address] Dec, [facility] [address] [id number] [address] [place] [address], [place] [address] Dec, [facility] [address] [id number] [address] [place] [address], [place] [address] Dec, [facility] [address] [id number] [address] [place] [address], [place] [address] Dec, [facility] [address] [id number] [address] [place] [address], [place] [address] Dec, [facility] [address] [id number] [address] [place] [address], [place] [address] Dec, [facility] [address] [id number] [address] [place] [address], [place] [address] Dec, [facility] [address] [id number] [address] [place] [address], [place] [address] Dec, [facility] [address] [id number] [address] [place] [address], [place] [address] October, [facility] [address] [id number] [address] [place] [address], [place] [address] October, [facility] [address] [id number] [address] [place] [address], [place] [address] October, [facility] [address] [id number] [address] [place] [address], [place] [address] October, [facility] [address] [id number] [address] [place] [address], [place] [address] October, [facility] [address] [id number] [address] [place] [address], [place] [address] October, [facility] [address] [id number] [address] [place] [address], [place] [address] Oct, [facility] [address] [id number] [address] [place] [address], [place] [address] Oct, [facility] [address] [id number] [address] [place] [address], [place] [address] Oct, [facility] [address] [id number] [address] [place] [address], [place] [address] Oct, [facility] [facility] [address] [id number] [facility] [place] [address] Oct, [facility] [address] [id number] [address] [place] [address], [place] [address] Oct, [facility] [address] [id number] [address] [place] [address], [place] [address] Oct, [facility] [address] [id number] [address] [place] [address], [place] [address] Oct, [facility] [address] [id number] [address] [place] [address], [place] [address] Oct, [facility] [address] [id number] [address] [place] [address], [place] [address] Oct, [facility] [address] [id number] [address] [place] [address], [place] [address] Oct, [facility] [address] [id number] [address] [place] [address], [place] [address] Oct, [facility] [address] [id number] [address] [place] [address], [place] [address] Aug, [facility] [address] [id number] [address] [place] [address], [place] [address] Aug, [facility] [address] [id number] [address] [place] [address], [place] [address] Aug, [facility] [address] [id number] [address] [place] [address], [place] [address] Aug, [facility] [address] [id number] [address] [place] [address], [place] [address] 05 Aug, 2013 [facility] [address] [id number] [address] [place] [address], [place] [address] 05 Aug, 2013 [facility] [address] [id number] [address] [place] [address], [place] [address] Aug, [facility] [address] [id number] [address] [place] [address], [place] [address] Aug, [facility] [address] [id number] [address] [place] [address], [place] [address] Aug, [facility] [address] [id number] [address] [place] [address], [place] [address] Aug, [facility] [address] [id number] [address] [place] [address], [place] [address] Aug, [facility] [address] [id number] [address] [place] [address], [place] [address] Aug, [facility] [address] [id number] [address] [place] [address], [place] [address] Aug, [facility] [address] [id number] [address] [place] [address], [place] [address] Aug, [facility] [address] [id number] [address] [place] [address], [place] [address] Aug, [facility] [address] [id number] [address] [place] [address], [place] [address] Aug, [facility] [address] [id number] [address] [place] [address], [place] [address] Aug, [facility] [address] [id number] [address] [place] [address], [place] [address] Aug, [facility] [address] [id number] [address] [place] [address], [place] [address] Aug, [facility] [address] [id number] [address] [place] [address], [place] [address] Aug, [facility] [address] [id number] [address] [place] [address], [place] [address] Aug, [facility] [address] [id number] [address] [place] [address], [place] [address] Aug, [facility] [address] [id number] [address] [place] [address], [place] [address] 04 Aug, 2013 [facility] [address] [id number] [address] [place] [address], [place] [address] Aug, [facility] [address] [id number] [address] [place] [address], [place] [address] Aug, [facility] [address] [id number] [address] [place] [address], [place] [address] Jul, [facility] [address] [id number] [address] [place] [address], [place] [address] Jul, [facility] [address] [id number] [address] [place] [address], [place] [address] Jul, [facility] [address] [id number] [address] [place] [address], [place] [address] Jul, [facility] [address] [id number] [address] [place] [address], [place] [address] Jul, [facility] [address] [id number] [address] [place] [address], [place] [address] Jul, [facility] [address] [id number] [address] [place] [address], [place] [address] Jul, [facility] [address] [id number] [address] [place] [address], [place] [address] Jul, [facility] [address] [id number] [address] [place] [address], [place] [address] Jul, [facility] [address] [id number] [address] [place] [address], [place] [address] Jul, [facility] [address] [id number] [address] [place] [address], [place] [address] Jul, [facility] [address] [id number] [address] [place] [address], [place] [address] Jul, [facility] [address] [id number] [address] [place] [address], [place] [address] Jul, [facility] [address] [id number] [address] [place] [address], [place] [address] Jul, [facility] [address] [id number] [address] [place] [address], [place] [address] Jul, [facility] [address] [id number] [address] [place] [address], [place] [address] Jul, [facility] [address] [id number] [address] [place] [address], [place] [address] Jul, [facility] [address] [id number] [address] [place] [address], [place] [address] Jul, [facility] [address] [id number] [address] [place] [address], [place] [address] Jul, [facility] [address] [id number] [address] [place] [address], [place] [address] Jul, [facility] [address] [id number] [address] [place] [address], [place] [address] Jun, [facility] [address] [id number] [address] [place] [address], [place] [address] Jun, [facility] [address] [id number] [address] [place] [address], [place] [address] Jun, [facility] [address] [id number] [address] [place] [address], [place] [address] Jun, [facility] [address] [id number] [address] [place] [address], [place] [address] Jun, [facility] [address] [id number] [address] [place] [address], [place] [address] Jun, [facility] [address] [id number] [address] [place] [address], [place] [address] Jun, [facility] [address] [id number] [address] [place] [address], [place] [address] Jun, [facility] [address] [id number] [address] [place] [address], [place] [address] 24 Jun, 2013 [facility] [address] [id number] [address] [place] [address], [place] [address] Jun, [facility] [address] [id number] [address] [place] [address], [place] [address] Jun, [facility] [address] [id number] [address] [place] [address], [place] [address] Jun, [facility] [address] [id number] [address] [place] [address], [place] [address] Jun, [facility] [address] [id number] [address] [place] [address], [place] [address] Jun, [facility] [address] [id number] [address] [place] [address], [place] [address] Jun, [facility] [address] [id number] [address] [place] [address], [place] [address] 18 Jun, 2013 [facility] [address] [id number] [address] [place] [address], [place] [address] 18 Jun, 2013 [facility] [address] [id number] [address] [place] [address], [place] [address] 17 Jun, 2013 [facility] [address] [id number] [address] [place] [address], [place] [address] 17 Jun, 2013 [facility] [address] [id number] [address] [place] [address], [place] [address] 13 Jun, 2013 [facility] [address] [id number] [address] [place] [address], [place] [address] 12 Jun, 2013 [facility] [address] [id number] [address] [place] [address], [place] [address] 12 Jun, 2013 [facility] [address] [id number] [address] [place] [address], [place] [address] 09 Jun, 2013 [facility] [address] [id number] [address] [place] [address], [place] [address] 05 Jun, 2013 [facility] [address] [id number] [address] [place] [address], [place] [address] 05 Jun, 2013 [facility] [address] [id number] [address] [place] [address], [place] [address] Jun, [facility] [address] [id number] [address] [place] [address], [place] [address] Jun, [facility] [address] [id number] [address] [place] [address], [place] [address] May, [facility] [address] [id number] [address] [place] [address], [place] [address] May, [facility] [address] [id number] [address] [place] [address], [place] [address] May, [facility] [address] [id number] [address] [place] [address], [place] [address] May, [facility] [address] [id number] [address] [place] [address], [place] [address] May, [facility] [address] [id number] [address] [place] [address], [place] [address] May, [facility] [address] [id number] [address] [place] [address], [place] [address] Apr, [facility] [address] [id number] [address] [place] [address], [place] [address] Apr, [facility] [address] [id number] [address] [place] [address], [place] [address] 30 Apr, 2013 [facility] [address] [id number] [address] [place] [address], [place] [address] 30 Apr, 2013 [facility] [address] [id number] [address] [place] [address], [place] [address] Apr, [facility] [address] [id number] [address] [place] [address], [place] [address] Apr, [facility] [address] [id number] [address] [place] [address], [place] [address] Apr, [facility] [address] [id number] [address] [place] [address], [place] [address] Apr, [facility] [address] [id number] [address] [place] [address], [place] [address] 26 Mar, 2012 [facility] [address] [id number] [address] [place] [address], [place] [address] 24 Mar, 2013 [facility] [address] [id number] [address] [place] [address], [place] [address] 17 Mar, 2012 [facility] [address] [id number] [address] [place] [address], [place] [address] 17 Mar, 2013 [facility] [address] [id number] [address] [place] [address], [place] [address] 11 Mar, 2013 [facility] [address] [id number] [address] [place] [address], [place] [address] 10 Mar, 2013 [facility] [address] [id number] [address] [place] [address], [place] [address] 05 Mar, 2013 [facility] [address] [id number] [address] [place] [address], [place] [address] 04 Mar, 2013 [facility] [address] [id number] [address] [place] [address], [place] [address] 20 Jan, 2013 [facility] [address] [id number] [address] [place] [address], [place] [address] Jan, [facility] [address] [id number] [address] [place] [address], [place] [address] 14 Jan, 2013 [facility] [address] [id number] [address] [place] [address], [place] [address] Jan, [facility] [address] [id number] [address] [place] [address], [place] [address] 07 Jan, 2013 [facility] [address] [id number] [address] [place] [address], [place] [address] 05 Jan, 2013 [facility] [address] [id number] [address] [place] [address], [place] [address] 31 Dec, 2012 [facility] [address] [id number] [facility] [place] [address] 24 Dec, 2012 [facility] [address] [id number] [facility] [place] [address] 22 Dec, 2012 [facility] [address] [id number] [address] [place] [address], [place] [address] 19 Dec, 2012 [facility] [address] [id number] [address] [place] [address], [place] [address] 18 Dec, 2012 [facility] [address] [id number] [address] [place] [address], [place] [address] 17 Dec, 2012 [facility] [address] [id number] [address] [place] [address], [place] [address] 16 Dec, 2012 [facility] [address] [id number] [address] [place] [address], [place] [address] 16 Dec, 2012 [facility] [address] [id number] [address] [place] [address], [place] [address] 15 Dec, 2012 [facility] [address] [id number] [address] [place] [address], [place] [address] 10 Dec, 2012 [facility] [address] [id number] [address] [place] [address], [place] [address] 28 Dec, 2012 [facility] [address] [id number] [address] [place] [address], [place] [address] 25 Dec, 2012 [facility] [address] [id number] [address] [place] [address], [place] [address] 19 Dec, 2012 [facility] [address] [id number] [address] [place] [address], [place] [address] 17 Dec, 2012 [facility] [address] [id number] [address] [place] [address], [place] [address] 13 Dec, 2012 [facility] [address] [id number] [address] [place] [address], [place] [address] 11 Dec, 2012 [facility] [address] [id number] [address] [place] [address], [place] [address] October, [facility] [address] [id number] [address] [place] [address], [place] [address] October, [facility] [address] [id number] [address] [place] [address], [place] [address] October, [facility] [address] [id number] [address] [place] [address], [place] [address] October, [facility] [address] [id number] [address] [place] [address], [place] [address] October, [facility] [address] [id number] [address] [place] [address], [place] [address] October, [facility] [address] [id number] [address] [place] [address], [place] [address] October, [facility] [address] [id number] [address] [place] [address], [place] [address] Oct, [facility] [address] [id number] [address] [place] [address], [place] [address] Oct, [facility] [address] [id number] [address] [place] [address], [place] [address] 24 Oct, 2012 [facility] [address] [id number] [address] [place] [address], [place] [address] Oct, [facility] [address] [id number] [address] [place] [address], [place] [address] Oct, [facility] [address] [id number] [address] [place] [address], [place] [address] 18 Oct, 2012 [facility] [address] [id number] [address] [place] [address], [place] [address] 17 Oct, 2012 [facility] [address] [id number] [address] [place] [address], [place] [address] 15 Oct, 2012 [facility] [address] [id number] [address] [place] [address], [place] [address] Oct, [facility] [address] [id number] [address] [place] [address], [place] [address] Oct, [facility] [address] [id number] [address] [place] [address], [place] [address] Oct, [facility] [address] [id number] [address] [place] [address], [place] [address] Oct, [facility] [address] [id number] [address] [place] [address], [place] [address] Aug, [facility] [address] [id number] [address] [place] [address], [place] [address] Aug, [facility] [address] [id number] [address] [place] [address], [place] [address] Aug, [facility] [address] [id number] [address] [place] [address], [place] [address] Aug, [facility] [address] [id number] [address] [place] [address], [place] [address] Aug, [facility] [address] [id number] [address] [place] [address], [place] [address] Aug, [facility] [address] [id number] [address] [place] [address], [place] [address] Aug, [facility] [address] [id number] [address] [place] [address], [place] [address] Aug, [facility] [address] [id number] [address] [place] [address], [place] [address] Aug, [facility] [address] [id number] [address] [place] [address], [place] [address] Aug, [facility] [address] [id number] [address] [place] [address], [place] [address] 29 Jul, 2012 [facility] [address] [id number] [address] [place] [address], [place] [address] 15 Jul, 2012 [facility] [address] [id number] [address] [place] [address], [place] [address] 08 Jul, 2012 [facility] [address] [id number] [address] [place] [address], [place] [address] 20 Jun, 2012 [facility] [address] [id number] [address] [place] [address], [place] [address] 18 Jun, 2012 [facility] [address] [id number] [address] [place] [address], [place] [address] 18 Jun, 2012 [facility] [address] [id number] [address] [place] [address], [place] [address] 18 Jun, 2012 [facility] [address] [id number] [address] [place] [address], [place] [address] 18 Jun, 2012 [facility] [address] [id number] [address] [place] [address], [place] [address] 14 Jun, 2012 [facility] [address] [id number] [address] [place] [address], [place] [address] 14 Jun, 2012 [facility] [address] [id number] [address] [place] [address], [place] [address] 13 Jun, 2012 [facility] [address] [id number] [address] [place] [address], [place] [address] 13 Jun, 2012 [facility] [address] [id number] [address] [place] [address], [place] [address] 11 Jun, 2012 [facility] [address] [id number] [address] [place] [address], [place] [address] 11 Jun, 2012 [facility] [address] [id number] [address] [place] [address], [place] [address] 11 Jun, 2012 [facility] [address] [id number] [address] [place] [address], [place] [address] 11 Jun, 2012 [facility] [address] [id number] [address] [place] [address], [place] [address] 07 Jun, 2012 [facility] [address] [id number] [address] [place] [address], [place] [address] Jun, [facility] [address] [id number] [address] [place] [address], [place] [address] Jun, [facility] [address] [id number] [address] [place] [address], [place] [address] Jun, [facility] [address] [id number] [address] [place] [address], [place] [address] Jun, [facility] [address] [id number] [address] [place] [address], [place] [address] Jun, [facility] [address] [id number] [address] [place] [address], [place] [address] Jun, [facility] [address] [id number] [address] [place] [address], [place] [address] Jun, [facility] [address] [id number] [address] [place] [address], [place] [address] Jun, [facility] [address] [id number] [address] [place] [address], [place] [address] Jun, [facility] [address] [id number] [address] [place] [address], [place] [address] May, [facility] [address] [id number] [address] [place] [address], [place] [address] May, [facility] [address] [id number] [address] [place] [address], [place] [address] May, [facility] [address] [id number] [address] [place] [address] May, [facility] [address] [id number] [address] [place] [address], [place] [address] May, [facility] [address] [id number] [address] [place] [address], [place] [address] May, [facility] [address] [id number] [address] [place] [address], [place] [address] May, [facility] [address] [id number] [address] [place] [address], [place] [address] 06 May, 2012 [facility] [address] [id number] [address] [place] [address], [place] [address] 30 Apr, 2012 [facility] [address] [id number] [address] [place] [address], [place] [address] 30 Apr, 2012 [facility] [address] [id number] [address] [place] [address], [place] [address] 29 Apr, 2012 [facility] [address] [id number] [address] [place] [address], [place] [address] Apr, [facility] [address] [id number] [address] [place] [address], [place] [address] Apr, [facility] [address] [id number] [address] [place] [address], [place] [address] Apr, [facility] [address] [id number] [address] [place] [address], [place] [address] Apr, [facility] [address] [id number] [address] [place] [address], [place] [address] Apr, [facility] [address] [id number] [address] [place] [address], [place] [address] 09 Apr, 2012 [facility] [address] [id number] [address] [place] [address], [place] [address] 08 Apr, 2012 [facility] [address] [id number] [address] [place] [address], [place] [address] 04 Apr, 2012 [facility] [address] [id number] [address] [place] [address], [place] [address] 02 Apr, 2012 [facility] [address] [id number] [address] [place] [address], [place] [address] 19 Mar, 2012 [facility] [address] [id number] [address] [place] [address], [place] [address] 18 Sep2011 [facility] [address] [id number] [address] [place] [address], [place] [address] 12 Mar, 2012 [facility] [address] [id number] [address] [place] [address], [place] [address] Mar, [facility] [address] [id number] [address] [place] [address], [place] [id number] Mar, [facility] [address] [id number] [address] [place] [address], [place] [id number] Mar, [facility] [address] [id number] [address] [place] [address], [place] [address] Mar, [facility] [address] [id number] [address] [place] [address], [place] [address] Jan, [facility] [address] [id number] [address] [place] [address], [place] [address] Jan, [facility] [address] [id number] [address] [place] [address], [place] [id number] Jan, [facility] [address] [id number] [address] [place] [address], [place] [id number] Jan, [facility] [address] [id number] [address] [place] [address] [address] Jan, [facility] [address] [id number] [address] [place] [address], [place] [address] Jan, [facility] [address] [id number] [address] [place] [address], [place] [address] Jan, [facility] [address] [id number] [address] [place] [address], [place] [address] Jan, [facility] [address] [id number] [address] [place] [address], [place] [address] Jan, [facility] [address] [id number] [address] [place] [address], [place] [address] Jan, [facility] [address] [id number] [address] [place] [address], [place] [address] Jan, [facility] [address] [id number] [address] [place] [address], [place] [address] Dec, [facility] [address] [id number] [facility] [place] [address] 27 Jan, 2012 [facility] [address] [id number] [address] [place] [address], [place] [address] 26 Jan, 2012 [facility] [address] [id number] [address] [place] [address], [place] [address] 26 Jan, 2012 [facility] [address] [id number] [address] [place] [address], [place] [address] 20 Jan, 2012 [facility] [address] [id number] [address] [place] [address], [place] [address] 19 Jan, 2012 [facility] [address] [id number] [address] [place] [address], [place] [address] 18 Jan, 2012 [facility] [address] [id number] [address] [place] [address], [place] [address] 17 Jan, 2012 [facility] [address] [id number] [address] [place] [address], [place] [address] 16 Jan, 2012 [facility] [address] [id number] [address] [place] [address], [place] [address] Dec, [facility] [address] [id number] [address] [place] [address], [place] [address] Dec, [facility] [address] [id number] [address] [place] [address], [place] [address] Dec, [facility] [address] [id number] [address] [place] [address], [place] [address] Dec, [facility] [address] [id number] [address] [place] [address], [place] [address] Dec, [facility] [address] [id number] [address] [place] [address], [place] [address] Dec, [facility] [address] [id number] [address] [place] [address], [place] [address] 18 Dec, 2011 [facility] [address] [id number] [address] [place] [address], [place] [address] Dec, [facility] [address] [id number] [address] [place] [address], [place] [address] Dec, [facility] [address] [id number] [address] [place] [address], [place] [address] Dec, [facility] [address] [id number] [address] [place] [address], [place] [address] October, [facility] [address] [id number] [address] [place] [address], [place] [address] October, [facility] [address] [id number] [address] [place] [address], [place] [address] October, [facility] [address] [id number] [address] [place] [address], [place] [address] October, [facility] [address] [id number] [address] [place] [address], [place] [address] October, [facility] [address] [id number] [address] [place] [address], [place] [address] October, [facility] [address] [id number] [address] [place] [address], [place] [address] Oct, [facility] [address] [id number] [address] [place] [address], [place] [address] Oct, [facility] [address] [id number] [address] [place] [address], [place] [address] Oct, [facility] [address] [id number] [address] [place] [address], [place] [address] Oct, [facility] [address] [id number] [address] [place] [address], [place] [address] Oct, [facility] [address] [id number] [address] [place] [address], [place] [address] Oct, [facility] [address] [id number] [address] [place] [address], [place] [address] Oct, [facility] [address] [id number] [address] [place] [address], [place] [address] 29 Sep, 2011 [facility] [address] [id number] [address] [place] [address], [place] [address] 29 Sep, 2011 [facility] [address] [id number] [address] [place] [address], [place] [address] 19 Sep, 2011 [facility] [address] [id number] [address] [place] [address], [place] [address] 13 Sep, 2011 [facility] [address] [id number] [address] [place] [address], [place] [address] 05 Sep, 2011 [facility] [address] [id number] [address] [place] [address], [place] [address] 05 Sep, 2011 [facility] [address] [id number] [address] [place] [address], [place] [address] 27 Aug, 2011 [facility] [address] [id number] [address] [place] [address], [place] [address] Aug, [facility] [address] [id number] [address] [place] [address], [place] [address] Aug, [facility] [address] [id number] [address] [place] [address], [place] [address] Jul, [facility] [address] [id number] [address] [place] [address], [place] [address] Jul, [facility] [address] [id number] [address] [place] [address], [place] [address] Jul, [facility] [address] [id number] [address] [place] [address], [place] [address] Jul, [facility] [address] [id number] [address] [place] [address], [place] [address] Jun, [facility] [address] [id number] [address] [place] [address], [place] [address] Jun, [facility] [address] [id number] [address] [place] [phone] May, [facility] [address] [id number] [address] [place] [phone] May, [facility] [address] [id number] [address] [place] [phone] May, [facility] [address] [id number] [address] [place] [phone] May, [facility] [address] [id number] [address] [place] [phone] May, [facility] [address] [id number] [address] [place] [id number] Apr, [facility] [address] [id number] [address] [place] [phone] Apr, [facility] [address] [id number] [address] [place] [id number] Apr, [facility] [address] [id number] [address] [place] [id number] Jan, [facility] [address] [id number] [address] [place] [phone] Dec, [facility] [address] [id number] [address] [place] [phone] October, [facility] [address] [id number] [address] [place] [phone] Jun, [facility] [address] [id number] [address] [place] [phone] Apr, [facility] [address] [id number] [address] [place] [id number] Apr, [facility] [address] [id number] [address] [place] [id number] Apr, [facility] [address] [id number] [address] [place] [phone] Jun, IMMUNIZATIONS No Known Immunizations SOCIAL HISTORY Never Assessed REASON FOR VISIT PLAN OF CARE VITAL SIGNS Height 69 in 2014-07-31 Weight 201 lbs 2014-07-31 Temperature 99.2 degrees Fahrenheit 2014-07-31 Heart Rate 108 bpm 2014-07-31 Respiratory Rate 24 2014-07-31 Blood pressure systolic 150 mmHg 2014-07-31 Blood pressure diastolic 92 mmHg 2014-07-31 MEDICATIONS Unknown Medications RESULTS No Results PROCEDURES Procedure Date Ordered Result Body Site INFLUENZA ASSAY W/OPTIC Jul 31, 2014 INSTRUCTIONS MEDICATIONS ADMINISTERED No Known Medications MEDICAL (GENERAL) HISTORY Type Description Date Medical History Psychiatric disorder Medical History Hard of hearing Surgical History Neofibrous tumor Surgical History back injection Surgical History SCS inserted 02/22/16 Hospitalization History Intestinal blockage Hospitalization History past psychiatric hospitalizations x2 Hospitalization History [facility]
--- OUTSIDE RECORDS SUMMARY | 2020-01-25 12:46 | XMS REPORT ---
Author Author Ana Iraheta Organization [facility] Address [address] [place] [address] Care Team Providers Care Control Room Supervisor Name Role Phone MELISA Iraheta Unavailable PROBLEMS Type Condition ICD9-CM Code [id number] Code Onset Dates Condition S tatus SNOMED Code Problem Attention deficit R41.840 Active 76 655126 Problem Chronic hepatitis C without hepatic coma B18.2 Active 002358338 Problem Cannabis abuse F12.10 Active 87680 009 Problem Bipolar disorder, in partial remission, most rec ent episode hypomanic F31.71 Active 234673068 Problem Attention deficit hyperactivity disorder (ADHD), combi luciano type F90.2 Active 61298986 Problem Bipolar 1 disorder F31.9 Active 3 17803548 Problem H/O laminectomy Z98.89 Active 1616 02680 Problem Other chronic pain G89.29 Active 8 3131311 Problem Anxiety disorder, unspecified type F41.9 Active [id number] ALLERGIES No Information ENCOUNTERS Encounter Location Date Diagnosis [facility] [address] [facility] [id number] [address] [place] [address] 08 Dec, 2018 [facility] [address] [facility] [id number] [address] [place] [address] October, [facility] [address] [facility] [id number] [address] [place] [id number] October, [facility] [address] [facility] [id number] [address] [place] [address] October, [facility] [address] [facility] [id number] [address] [place] [address] October, Other chronic pain G89.29 an d Chronic hepatitis C without hepatic coma B18.2 [facility] [address] [facility] [id number] [address] [place] [phone] Aug, Bipolar disorder, in partial remission, most recent episode hypomanic F31.71 ; Attention deficit hyperactivity disorder (ADHD), combined type F90.2 and Anxiety disorder, unspecified type F41.9 [facility] [address] [id number] [address] [place] [address] Aug, [facility] [address] [id number] [address] [place] [address] Aug, Bipolar disorder, in partial remission, most recent episode hypomanic F31.71 [facility] [address] [id number] [address] [place] [address] Aug, [facility] [address] [id number] [address] [place] [address] Aug, Bipolar disorder, in partial remission, most recent episode hypomanic F31.71 [facility] [address] [id number] [address] [place] [address] Aug, Bipolar disorder, in partial remission, most recent episode hypomanic F31.71 ; Attention deficit hyperactivity disorder (ADHD), combined type F90.2 and Anxiety disorder, unspecified type F41.9 [facility] [address] [id number] [address] [place] [address] Aug, Low back pain M54.5 and Pain in left wrist M25.532 [facility] [address] [id number] [address] [place] [address] Aug, [facility] [address] [id number] [address] [place] [address] Jun, [facility] [address] [id number] [address] [place] [address] Apr, Bipolar disorder, in partial remission, most recent episode hypomanic F31.71 [facility] [address] [id number] [address] [place] [address] Apr, [facility] [address] [id number] [address] [place] [address] Apr, Bipolar disorder, in partial remission, most recent episode hypomanic F31.71 ; Attention deficit hyperactivity disorder (ADHD), combined type F90.2 ; Anxiety disorder, unspecified type F41.9 and Other custodial (current) 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 Z79.899 [facility] [address] [id number] [address] [place] [address] Apr, Bipolar disorder, in partial remission, most recent episode hypomanic F31.71 [facility] [address] [facility] [id number] [address] [place] [address] Apr, Bipolar disorder, in partial remission, most recent episode hypomanic F31.71 [facility] [address] [id number] [address] [place] [address] Mar, [facility] [address] [facility] [id number] [address] [place] [address] Mar, Bipolar disorder, in partial remission, most recent episode hypomanic F31.71 ; Encounter for immunization Z23 and Low back pain M54.5 [facility] [address] [id number] [address] [place] [address] Mar, Bipolar disorder, in partial remission, most recent episode hypomanic F31.71 [facility] [address] [id number] [address] [place] [address] Mar, Bipolar disorder, in partial remission, most recent episode hypomanic F31.71 [facility] [address] [facility] [id number] [address] [place] [address] Jan, Bipolar disorder, in partial remission, most recent episode hypomanic F31.71 [facility] [address] [facility] [id number] [address] [place] [address] Jan, Bipolar disorder, in partial remission, most recent episode hypomanic F31.71 [facility] [address] [id number] [address] [place] [address] Dec, Bipolar disorder, in partial remission, most recent episode hypomanic F31.71 [facility] [address] [id number] [address] [place] [address] Dec, Bipolar disorder, in partial remission, most recent episode hypomanic F31.71 ; Attention deficit hyperactivity disorder (ADHD), combined type F90.2 ; Anxiety disorder, unspecified type F41.9 and Other custodial (current) 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 Z79.899 [facility] [address] [id number] [address] [place] [address] Dec, Bipolar disorder, in partial remission, most recent episode hypomanic F31.71 [facility] [address] [id number] [address] [place] [address] Dec, Bipolar disorder, in partial remission, most recent episode hypomanic F31.71 [facility] [address] [id number] [address] [place] [address] October, Bipolar disorder, in partial remission, most recent episode hypomanic F31.71 [facility] [address] [id number] [address] [place] [address] October, [facility] [address] [id number] [address] [place] [address] October, [facility] [address] [id number] [address] [place] [address] Oct, Bipolar disorder, in partial remission, most recent episode hypomanic F31.71 ; Attention deficit hyperactivity disorder (ADHD), combined type F90.2 ; Anxiety disorder, unspecified type F41.9 and Encounter for drug screening Z02.83 [facility] [address] [id number] [address] [place] [address] Oct, Bipolar disorder, in partial remission, most recent episode hypomanic F31.71 [facility] [address] [id number] [address] [place] [address] Oct, Bipolar disorder, in partial remission, most recent episode hypomanic F31.71 [facility] [address] [id number] [address] [place] [address] Aug, Bipolar disorder, in partial remission, most recent episode hypomanic F31.71 [facility] [address] [id number] [address] [place] [address] Aug, Bipolar disorder, in partial remission, most recent episode hypomanic F31.71 [facility] [address] [id number] [address] [place] [address] Aug, Bipolar disorder, in partial remission, most recent episode hypomanic F31.71 [facility] [address] [id number] [address] [place] [address] Jul, Bipolar disorder, in partial remission, most recent episode hypomanic F31.71 ; Attention deficit hyperactivity disorder (ADHD), combined type F90.2 and Anxiety disorder, unspecified type F41.9 [facility] [address] [facility] [id number] [address] [place] [address] Jul, Bipolar disorder, in partial remission, most recent episode hypomanic F31.71 [facility] [address] [id number] [address] [place] [address] Jun, Bipolar disorder, in partial remission, most recent episode hypomanic F31.71 [facility] [address] [facility] [id number] [address] [place] [address] May, Bipolar disorder, in partial remission, most recent episode hypomanic F31.71 [facility] [address] [facility] [id number] [address] [place] [address] May, Bipolar disorder, in partial remission, most recent episode hypomanic F31.71 [facility] [address] [facility] [id number] [address] [place] [address] Apr, [facility] [address] [facility] [id number] [address] [place] [address] Apr, Bipolar disorder, in partial remission, most recent episode hypomanic F31.71 ; Attention deficit hyperactivity disorder (ADHD), combined type F90.2 ; Anxiety disorder, unspecified type F41.9 and Cannabis abuse F12.10 [facility] [address] [facility] [id number] [address] [place] [address] 13 Apr, 2017 Attention deficit hyperactiv ity disorder (ADHD), combined type F90.2 [facility] [address] [facility] [id number] [address] [place] [phone] 21 Mar, 2017 Attention deficit hyperactiv ity disorder (ADHD), combined type F90.2 [facility] [address] [facility] [id number] [address] [place] [address] 14 Mar, 2017 Anxiety disorder, unspecifie d type F41.9 [facility] [address] [facility] [id number] [address] [place] [address] Jan, Attention deficit hyperactiv ity disorder (ADHD), combined type F90.2 [place] [address] [place] [id number] [address] [place] [address] Jan, Anxiety disorder, unspecifie d type F41.9 [facility] [address] [place] [id number] [address] [place] [address] Jan, Other chronic pain G89.29 ; Chronic hepatitis C without hepatic coma B18.2 and Bipolar 1 disorder F31.9 [facility] [address] [place] [id number] [address] [place] [address] Dec, Attention deficit hyperactiv ity disorder (ADHD), combined type F90.2 [facility] [address] [facility] [id number] [address] [place] [address] Dec, Bipolar disorder, in partial remission, most recent episode hypomanic F31.71 ; Attention deficit hyperactivity disorder (ADHD), combined type F90.2 and Anxiety disorder, unspecified type F41.9 [facility] [address] [facility] [id number] [address] [place] [address] Dec, Bipolar disorder, in partial remission, most recent episode hypomanic F31.71 ; Attention deficit hyperactivity disorder (ADHD), combined type F90.2 and Anxiety disorder, unspecified type F41.9 [facility] [address] [place] [id number] [address] [place] [address] Dec, Bipolar 1 disorder F31.9 and Attention deficit R41.840 [facility] [address] [facility] [id number] [address] [place] [address] Oct, Other chronic pain G89.29 ; Alopecia L65.9 and Screening, lipid Z13.220 [facility] [address] [facility] [id number] [address] [place] [address] Oct, [facility] [address] [facility] [id number] [address] [place] [address] Aug, [facility] [address] [place] [id number] [address] [place] [address] Aug, Eustachian tube dysfunction, right H69.81 ; Vertigo R42 and Other chronic pain G89.29 [facility] [address] [place] [id number] [address] [place] [address] Aug, [facility] [address] [facility] [id number] [address] [place] [address] Jun, [facility] [address] [facility] [id number] [address] [place] [address] Jun, Low back pain M54.5 and Othe r chronic pain G89.29 [facility] [address] [facility] [id number] [address] [place] [address] Jun, [facility] [address] [facility] [id number] [address] [place] [address] May, [facility] [address] [facility] [id number] [address] [place] [address] Jan, [facility] [address] [facility] [id number] [address] [place] [address] Dec, [facility] [address] [facility] [id number] [address] [place] [address] Dec, [facility] [address] [facility] [id number] [address] [place] [id number] Jun, [facility] [address] [id number] [address] [place] [address] Apr, Eustachian tube dysfunction, unspecified laterality H69.80 ; Hot flashes N95.1 and Encounter for immunization Z23 [facility] [address] [facility] [id number] [address] [place] [address] Jan, [facility] [address] [id number] [address] [place] [address] Jan, [facility] [address] [id number] [address] [place] [address] Jan, [facility] [address] [facility] [id number] [address] [place] [address] Jan, [facility] [address] [facility] [id number] [address] [place] [address] Jan, Encounter to establish care V65.8 ; Bipolar 1 disorder 296.7 ; Abdominal pain 789.00 ; Constipation 564.00 ; Hard of hearing 389.9 and Drug abuse 305.90 [facility] [address] [facility] [id number] [address] [place] [address] Dec, [facility] [address] [facility] [id number] [address] [place] [address] October, [facility] [address] [facility] [id number] [address] [place] [address] October, [facility] [address] [id number] [address] [place] [address] Oct, [facility] [address] [facility] [id number] [address] [place] [address] Oct, [facility] [address] [facility] [id number] [address] [place] [address] Oct, [facility] [address] [facility] [id number] [address] [place] [address] Aug, [facility] [address] [id number] [address] [place] [address], [place] [address] Aug, [facility] [address] [id number] [address] [place] [address], [place] [address] Aug, [facility] [address] [id number] [address] [place] [address], [place] [address] Aug, 2014 [facility] [address] [id number] [address] [place] [address], [place] [address] Aug, 2014 [facility] [address] [id number] [address] [place] [address], [place] [address] Aug, 2014 [facility] [address] [id number] [address] [place] [address], [place] [address] Aug, 2014 [facility] [address] [id number] [address] [place] [address], [place] [address] Aug, 2014 [facility] [address] [id number] [address] [place] [address], [place] [address] Aug, 2014 [facility] [address] [id number] [address] [place] [address], [place] [address] Aug, 2014 [facility] [address] [id number] [address] [place] [address], [place] [address] Aug, 2014 [facility] [address] [id number] [address] [place] [address], [place] [address] Aug, 2014 [facility] [address] [id number] [address] [place] [address], [place] [address] Aug, 2014 [facility] [address] [id number] [address] [place] [address], [place] [address] Aug, 2014 [facility] [address] [id number] [address] [place] [address], [place] [address] Aug, 2014 [facility] [address] [id number] [address] [place] [address], [place] [address] Jul, [facility] [address] [id number] [address] [place] [address], [place] [address] Jul, [facility] [address] [id number] [address] [place] [address], [place] [address] Jul, [facility] [address] [id number] [address] [place] [address], [place] [address] Jul, [facility] [address] [id number] [address] [place] [address], [place] [address] Jul, [facility] [address] [id number] [address] [place] [address], [place] [address] Jul, [facility] [address] [id number] [address] [place] [address], [place] [address] Jul, [facility] [address] [id number] [address] [place] [address], [place] [address] Jul, [facility] [address] [id number] [address] [place] [address], [place] [address] Jun, [facility] [address] [id number] [address] [place] [address], [place] [address] Jun, [facility] [address] [id number] [address] [place] [address], [place] [address] Jun, [facility] [address] [id number] [address] [place] [address], [place] [address] Jun, [facility] [address] [id number] [address] [place] [address], [place] [address] Jun, [facility] [address] [id number] [address] [place] [address], [place] [address] Jun, [facility] [address] [id number] [address] [place] [address], [place] [address] Jun, [facility] [address] [id number] [address] [place] [address], [place] [address] Jun, [facility] [address] [id number] [address] [place] [address], [place] [address] Jun, [facility] [address] [id number] [address] [place] [address], [place] [address] Jun, [facility] [address] [id number] [address] [place] [address], [place] [address] Jun, [facility] [address] [id number] [address] [place] [address], [place] [address] May, [facility] [address] [id number] [address] [place] [address], [place] [address] May, [facility] [address] [id number] [address] [place] [address], [place] [address] May, [facility] [address] [id number] [address] [place] [address], [place] [address] May, [facility] [address] [id number] [address] [place] [address], [place] [address] May, [facility] [address] [id number] [address] [place] [address], [place] [address] May, [facility] [address] [id number] [address] [place] [address], [place] [address] May, [facility] [address] [id number] [address] [place] [address], [place] [address] Apr, [facility] [address] [id number] [address] [place] [address], [place] [address] Apr, [facility] [address] [id number] [address] [place] [address] Apr, [facility] [address] [id number] [address] [place] [address], [place] [address] Apr, [facility] [address] [id number] [address] [place] [address], [place] [address] Apr, [facility] [address] [id number] [address] [place] [address], [place] [address] Apr, [facility] [address] [id number] [address] [place] [address], [place] [address] 29 Mar, 2013 [facility] [address] [id number] [address] [place] [address], [place] [address] 29 Mar, 2013 [facility] [address] [id number] [address] [place] [address], [place] [id number] Mar, [facility] [address] [id number] [address] [place] [address], [place] [id number] Mar, [facility] [address] [id number] [address] [place] [address], [place] [id number] Mar, [facility] [address] [id number] [address] [place] [address], [place] [id number] Mar, [facility] [address] [id number] [address] [place] [address], [place] [id number] Jan, [facility] [address] [id number] [address] [place] [address], [place] [id number] Jan, [facility] [address] [id number] [address] [place] [address], [place] [id number] Jan, [facility] [address] [id number] [address] [place] [address], [place] [id number] Jan, [facility] [address] [id number] [address] [place] [address], [place] [id number] Dec, [facility] [address] [id number] [address] [place] [address], [place] [id number] Dec, [facility] [address] [id number] [address] [place] [address], [place] [id number] Dec, [facility] [address] [id number] [address] [place] [address], [place] [id number] Dec, [facility] [address] [id number] [address] [place] [address], [place] [address] Dec, [facility] [address] [id number] [address] [place] [address], [place] [address] Dec, [facility] [address] [id number] [facility] [place] [id number] Dec, [facility] [address] [id number] [address] [place] [address], [place] [id number] Dec, [facility] [address] [id number] [address] [place] [address], [place] [id number] Dec, [facility] [facility] [address] [id number] [address] [place] [address], [place] [address] Dec, [facility] [address] [id number] [address] [place] [address], [place] [address] Dec, [facility] [address] [id number] [address] [place] [address], [place] [address] Dec, [facility] [address] [id number] [address] [place] [address], [place] [address] October, [facility] [address] [id number] [address] [place] [address], [place] [address] October, [facility] [address] [id number] [address] [place] [address], [place] [address] October, [facility] [address] [id number] [address] [place] [address], [place] [address] October, [facility] [address] [id number] [address] [place] [address], [place] [address] October, [facility] [address] [id number] [address] [place] [address], [place] [address] October, [facility] [address] [id number] [address] [place] [address], [place] [address] Oct, [facility] [address] [id number] [address] [place] [address], [place] [address] Oct, [facility] [address] [id number] [address] [place] [address], [place] [address] Oct, [facility] [address] [id number] [address] [place] [address], [place] [address] Oct, [facility] [address] [id number] [facility] [place] [address] Oct, [facility] [address] [id number] [address] [place] [address], [place] [address] Oct, [facility] [address] [id number] [address] [place] [address], [place] [address] Oct, [facility] [address] [id number] [address] [place] [address], [place] [address] Oct, [facility] [address] [id number] [address] [place] [address], [place] [address] Oct, [facility] [address] [id number] [address] [place] [address], [place] [address] Oct, [facility] [address] [id number] [address] [place] [address], [place] [address] Oct, [facility] [address] [id number] [address] [place] [address], [place] [address] Oct, [facility] [address] [id number] [address] [place] [address], [place] [address] Aug, [facility] [address] [id number] [address] [place] [address], [place] [address] Aug, [facility] [address] [id number] [address] [place] [address], [place] [address] Aug, [facility] [address] [id number] [address] [place] [address], [place] [address] Aug, [facility] [address] [id number] [address] [place] [address], [place] [address] 05 Aug, 2013 [facility] [address] [id number] [address] [place] [address], [place] [address] 05 Aug, 2013 [facility] [address] [id number] [address] [place] [address], [place] [address] Aug, [facility] [address] [id number] [address] [place] [address], [place] [address] Aug, [facility] [address] [id number] [address] [place] [address], [place] [address] Aug, [facility] [address] [id number] [address] [place] [address], [place] [address] Aug, [facility] [address] [id number] [address] [place] [address], [place] [address] 24 Aug, 2013 [facility] [address] [id number] [address] [place] [address], [place] [address] Aug, [facility] [address] [id number] [address] [place] [address], [place] [address] Aug, [facility] [address] [id number] [address] [place] [address], [place] [address] 20 Aug, 2013 [facility] [address] [id number] [address] [place] [address], [place] [address] 14 Aug, 2013 [facility] [address] [id number] [address] [place] [address], [place] [address] Aug, [facility] [address] [id number] [address] [place] [address], [place] [address] Aug, [facility] [address] [id number] [address] [place] [address], [place] [address] Aug, [facility] [address] [id number] [address] [place] [address], [place] [address] Aug, [facility] [address] [id number] [address] [place] [address], [place] [address] Aug, [facility] [address] [id number] [address] [place] [address], [place] [address] Aug, [facility] [address] [id number] [address] [place] [address], [place] [address] Aug, [facility] [address] [id number] [address] [place] [address], [place] [address] Aug, [facility] [address] [id number] [address] [place] [address], [place] [address] Aug, [facility] [address] [id number] [address] [place] [address], [place] [address] Aug, [facility] [address] [id number] [address] [place] [address], [place] [address] Jul, [facility] [address] [id number] [address] [place] [address], [place] [address] Jul, [facility] [address] [id number] [address] [place] [address], [place] [address] Jul, [facility] [address] [id number] [address] [place] [address], [place] [address] Jul, [facility] [address] [id number] [address] [place] [address], [place] [address] Jul, [facility] [address] [id number] [address] [place] [address], [place] [address] Jul, [facility] [address] [id number] [address] [place] [address], [place] [address] Jul, [facility] [address] [id number] [address] [place] [address], [place] [address] Jul, [facility] [address] [id number] [address] [place] [address], [place] [address] Jul, [facility] [address] [id number] [address] [place] [address], [place] [address] Jul, [facility] [address] [id number] [address] [place] [address], [place] [address] Jul, [facility] [address] [id number] [address] [place] [address], [place] [address] Jul, [facility] [address] [id number] [address] [place] [address], [place] [address] Jul, [facility] [address] [id number] [address] [place] [address], [place] [address] Jul, [facility] [address] [id number] [address] [place] [address], [place] [address] Jul, [facility] [address] [id number] [address] [place] [address], [place] [address] Jul, [facility] [address] [id number] [address] [place] [address], [place] [address] Jul, [facility] [address] [id number] [address] [place] [address], [place] [address] Jul, [facility] [address] [id number] [address] [place] [address], [place] [address] Jul, [facility] [address] [id number] [address] [place] [address], [place] [address] Jul, [facility] [address] [id number] [address] [place] [address], [place] [address] Jun, [facility] [address] [id number] [address] [place] [address], [place] [address] Jun, [facility] [address] [id number] [address] [place] [address], [place] [address] Jun, [facility] [address] [id number] [address] [place] [address], [place] [address] Jun, [facility] [address] [id number] [address] [place] [address], [place] [address] Jun, [facility] [address] [id number] [address] [place] [address], [place] [address] Jun, [facility] [address] [id number] [address] [place] [address], [place] [address] Jun, [facility] [address] [id number] [address] [place] [address], [place] [address] Jun, [facility] [address] [id number] [address] [place] [address], [place] [address] 24 Jun, 2013 [facility] [address] [id number] [address] [place] [address], [place] [address] Jun, [facility] [address] [id number] [address] [place] [address], [place] [address] Jun, [facility] [address] [id number] [address] [place] [address], [place] [address] Jun, [facility] [address] [id number] [address] [place] [address], [place] [address] Jun, [facility] [address] [id number] [address] [place] [address], [place] [address] Jun, [facility] [address] [id number] [address] [place] [address], [place] [address] Jun, [facility] [address] [id number] [address] [place] [address], [place] [address] 18 Jun, 2013 [facility] [address] [id number] [address] [place] [address], [place] [address] 18 Jun, 2013 [facility] [address] [id number] [address] [place] [address], [place] [address] 17 Jun, 2013 [facility] [address] [id number] [address] [place] [address], [place] [address] 17 Jun, 2013 [facility] [address] [id number] [address] [place] [address], [place] [address] 13 Jun, 2013 [facility] [address] [id number] [address] [place] [address], [place] [address] 12 Jun, 2013 [facility] [address] [id number] [address] [place] [address], [place] [address] 12 Jun, 2013 [facility] [address] [id number] [address] [place] [address], [place] [address] 09 Jun, 2013 [facility] [address] [id number] [address] [place] [address], [place] [address] 05 Jun, 2013 [facility] [address] [id number] [address] [place] [address], [place] [address] 05 Jun, 2013 [facility] [address] [id number] [address] [place] [address], [place] [address] Jun, [facility] [address] [id number] [address] [place] [address], [place] [address] Jun, [facility] [address] [id number] [address] [place] [address], [place] [address] May, [facility] [address] [id number] [address] [place] [address], [place] [address] May, [facility] [address] [id number] [address] [place] [address], [place] [address] May, [facility] [address] [id number] [address] [place] [address], [place] [address] May, [facility] [address] [id number] [address] [place] [address], [place] [address] May, [facility] [address] [id number] [address] [place] [address], [place] [address] May, [facility] [address] [id number] [address] [place] [address], [place] [address] Apr, [facility] [address] [id number] [address] [place] [address], [place] [address] 30 Apr, 2013 [facility] [address] [id number] [address] [place] [address], [place] [address] 30 Apr, 2013 [facility] [address] [id number] [address] [place] [address], [place] [address] 30 Apr, 2013 [facility] [address] [id number] [address] [place] [address], [place] [address] Apr, [facility] [address] [id number] [address] [place] [address], [place] [address] 15 Apr, 2013 [facility] [address] [id number] [address] [place] [address], [place] [address] 15 Apr, 2013 [facility] [address] [id number] [address] [place] [address], [place] [address] Apr, [facility] [address] [id number] [address] [place] [address], [place] [address] 26 Mar, 2012 [facility] [address] [id number] [address] [place] [address], [place] [address] 24 Mar, 2012 [facility] [address] [id number] [address] [place] [address], [place] [address] 17 Mar, 2012 [facility] [address] [id number] [address] [place] [address], [place] [address] 17 Mar, 2012 [facility] [address] [id number] [address] [place] [address], [place] [address] 11 Mar, [address] [facility] [address] [id number] [address] [place] [address], [place] [address] 10 Mar, 2012 [facility] [address] [id number] [address] [place] [address], [place] [address] 05 Mar, 2013 [facility] [address] [id number] [address] [place] [address], [place] [address] 04 Mar, [address] [facility] [address] [id number] [address] [place] [address], [place] [address] 20 Jan, 2013 [facility] [address] [id number] [address] [place] [address], [place] [address] Jan, [facility] [address] [id number] [address] [place] [address], [place] [address] 14 Jan, 2013 [facility] [address] [id number] [address] [place] [address], [place] [address] Jan, [facility] [address] [id number] [address] [place] [address], [place] [address] Jan, [facility] [address] [id number] [address] [place] [address], [place] [address] 05 Jan, 2013 [facility] [address] [id number] [address] [place] [address], [place] [address] 31 Dec, 2012 [facility] [address] [id number] [address] [place] [address], [place] [address] 24 Dec, 2012 [facility] [address] [id number] [address] [place] [address], [place] [address] 22 Dec, 2012 [facility] [address] [id number] [address] [place] [address], [place] [address] 19 Dec, 2012 [facility] [address] [id number] [address] [place] [address], [place] [address] 18 Dec, 2012 [facility] [address] [id number] [address] [place] [address], [place] [address] 17 Dec, 2012 [facility] [address] [id number] [address] [place] [address], [place] [address] 16 Dec, 2012 [facility] [address] [id number] [address] [place] [address], [place] [address] 16 Dec, 2012 [facility] [address] [id number] [address] [place] [address], [place] [address] 15 Dec, 2012 [facility] [address] [id number] [address] [place] [address], [place] [address] 10 Dec, 2012 [facility] [address] [id number] [address] [place] [address], [place] [address] 28 Dec, [address] [facility] [address] [id number] [address] [place] [address], [place] [address] 25 Dec, 2012 [facility] [address] [id number] [address] [place] [address], [place] [address] 19 Dec, 2012 [facility] [address] [id number] [address] [place] [address], [place] [address] 17 Dec, 2012 [facility] [address] [id number] [address] [place] [address], [place] [address] 13 Dec, 2012 [facility] [address] [id number] [address] [place] [address], [place] [address] 11 Dec, 2012 [facility] [address] [id number] [address] [place] [address], [place] [address] October, [facility] [address] [id number] [address] [place] [address], [place] [address] October, [facility] [address] [id number] [address] [place] [address], [place] [address] October, [facility] [address] [id number] [address] [place] [address], [place] [address] October, [facility] [address] [id number] [address] [place] [address], [place] [address] October, [facility] [address] [id number] [address] [place] [address], [place] [address] October, [facility] [address] [id number] [address] [place] [address], [place] [address] October, [facility] [address] [id number] [address] [place] [address], [place] [address] Oct, [facility] [address] [id number] [address] [place] [address], [place] [address] Oct, [facility] [address] [id number] [address] [place] [address], [place] [address] Oct, [facility] [address] [id number] [address] [place] [address], [place] [address] Oct, [facility] [address] [id number] [address] [place] [address], [place] [address] Oct, [facility] [address] [id number] [address] [place] [address], [place] [address] 18 Oct, 2012 [facility] [address] [id number] [address] [place] [address], [place] [id number] 17 Oct, 2012 [facility] [address] [id number] [address] [place] [address], [place] [id number] 15 Oct, 2012 [facility] [address] [id number] [address] [place] [address], [place] [address] Oct, [facility] [address] [id number] [address] [place] [address], [place] [id number] Oct, [facility] [address] [id number] [address] [place] [address], [place] [address] Oct, [facility] [address] [id number] [address] [place] [address], [place] [address] Oct, [facility] [address] [id number] [address] [place] [address], [place] [address] Aug, [facility] [address] [id number] [address] [place] [address], [place] [address] Aug, [facility] [address] [id number] [address] [place] [address], [place] [address] Aug, [facility] [address] [id number] [address] [place] [address], [place] [address] Aug, [facility] [address] [id number] [address] [place] [address], [place] [id number] Aug, [facility] [address] [id number] [address] [place] [address], [place] [address] Aug, [facility] [address] [id number] [address] [place] [address], [place] [address] Aug, [facility] [address] [id number] [address] [place] [address], [place] [address] Aug, [facility] [address] [id number] [address] [place] [address], [place] [address] Aug, [facility] [address] [id number] [address] [place] [address], [place] [address] Aug, [facility] [address] [id number] [address] [place] [address], [place] [address] Jul, [facility] [address] [id number] [address] [place] [address], [place] [address] Jul, [facility] [address] [id number] [address] [place] [address], [place] [address] 08 Jul, 2012 [facility] [address] [id number] [address] [place] [address], [place] [address] 20 Jun, 2012 [facility] [address] [id number] [address] [place] [address], [place] [id number] 18 Jun, 2012 [facility] [address] [id number] [address] [place] [address], [place] [address] 18 Jun, 2012 [facility] [address] [id number] [address] [place] [address], [place] [address] 18 Jun, 2012 [facility] [address] [id number] [address] [place] [address], [place] [id number] 18 Jun, 2012 [facility] [address] [id number] [address] [place] [address], [place] [address] 14 Jun, 2012 [facility] [address] [id number] [address] [place] [address], [place] [address] 14 Jun, 2012 [facility] [address] [id number] [address] [place] [address], [place] [address] 13 Jun, 2012 [facility] [address] [id number] [address] [place] [address], [place] [address] 13 Jun, 2012 [facility] [address] [id number] [address] [place] [address], [place] [address] 11 Jun, 2012 [facility] [address] [id number] [address] [place] [address], [place] [address] 11 Jun, 2012 [facility] [address] [id number] [address] [place] [address], [place] [address] 11 Jun, [address] [facility] [address] [id number] [address] [place] [address], [place] [address] 11 Jun, 2012 [facility] [address] [id number] [address] [place] [address], [place] [address] 07 Jun, 2012 [facility] [address] [id number] [address] [place] [address], [place] [address] Jun, [facility] [address] [id number] [address] [place] [address], [place] [address] Jun, [facility] [address] [id number] [address] [place] [address], [place] [address] Jun, [facility] [address] [id number] [address] [place] [address], [place] [address] Jun, [facility] [address] [id number] [address] [place] [address], [place] [address] Jun, [facility] [address] [id number] [address] [place] [address], [place] [address] Jun, [facility] [address] [id number] [address] [place] [address], [place] [address] Jun, [facility] [address] [id number] [address] [place] [address], [place] [address] Jun, [facility] [address] [id number] [address] [place] [address], [place] [address] Jun, [facility] [address] [id number] [address] [place] [address], [place] [address] May, [facility] [address] [id number] [address] [place] [address], [place] [address] May, [facility] [address] [id number] [address] [place] [address], [place] [address] May, [facility] [address] [id number] [address] [place] [address], [place] [address] May, [facility] [address] [id number] [address] [place] [address], [place] [address] May, [facility] [address] [id number] [address] [place] [address], [place] [address] May, [facility] [address] [id number] [address] [place] [address], [place] [id number] May, [facility] [address] [id number] [address] [place] [id number] May, [facility] [address] [id number] [address] [place] [address], [place] [address] 30 Apr, 2012 [facility] [address] [id number] [address] [place] [id number] 30 Apr, 2012 [facility] [address] [id number] [address] [place] [address], [place] [address] 29 Apr, 2012 [facility] [address] [id number] [address] [place] [phone] Apr, [facility] [address] [id number] [address] [place] [address], [place] [address] Apr, [facility] [address] [id number] [address] [place] [phone] Apr, [facility] [address] [id number] [address] [place] [id number] Apr, [facility] [address] [id number] [address] [place] [phone] Apr, [facility] [address] [id number] [address] [place] [phone] Apr, [facility] [address] [id number] [address] [place] [id number] 08 Apr, 2012 [facility] [address] [id number] [address] [place] [id number] 04 Apr, 2012 [facility] [address] [id number] [address] [place] [id number] 02 Apr, 2012 [facility] [address] [id number] [address] [place] [id number] 19 Mar, 2012 [facility] [address] [id number] [address] [place] [id number] 18 Mar, 2012 [facility] [address] [id number] [address] [place] [id number] 12 Mar, 2012 [facility] [address] [id number] [address] [place] [address], [place] [id number] Mar, [facility] [address] [id number] [address] [place] [id number] Mar, [facility] [address] [id number] [address] [place] [address], [place] [id number] Mar, [facility] [address] [id number] [address] [place] [address], [place] [id number] Mar, [facility] [address] [id number] [address] [place] [address], [place] [address] Jan, [facility] [address] [id number] [address] [place] [address], [place] [id number] Jan, [facility] [address] [id number] [address] [place] [address], [place] [id number] Jan, [facility] [address] [id number] [address] [place] [id number] Jan, [facility] [address] [id number] [address] [place] [address], [place] [id number] Jan, [facility] [address] [id number] [address] [place] [address], [place] [id number] Jan, [facility] [address] [id number] [address] [place] [address], [place] [id number] Jan, [facility] [address] [id number] [address] [place] [address], [place] [id number] Jan, [facility] [address] [id number] [address] [place] [address], [place] [phone] Jan, [facility] [address] [id number] [address] [place] [address], [place] [id number] Jan, [facility] [address] [id number] [address] [place] [address], [place] [id number] Jan, [facility] [address] [id number] [address] [place] [address], [place] [id number] Dec, [facility] [address] [id number] [address] [place] [address], [place] [id number] 27 Jan, 2012 [facility] [address] [id number] [address] [place] [address], [place] [id number] Dec, [facility] [address] [id number] [address] [place] [address], [place] [id number] 26 Jan, 2012 [facility] [address] [id number] [address] [place] [address], [place] [id number] 20 Jan, 2012 [facility] [address] [id number] [address] [place] [address], [place] [id number] 19 Jan, 2012 [facility] [address] [id number] [address] [place] [address], [place] [id number] 18 Jan, [address] [facility] [address] [id number] [address] [place] [address], [place] [id number] 17 Jan, 2012 [facility] [address] [id number] [address] [place] [address], [place] [id number] 16 Jan, 2012 [facility] [address] [id number] [address] [place] [address], [place] [id number] Dec, [facility] [address] [id number] [address] [place] [address], [place] [id number] Dec, [facility] [address] [id number] [address] [place] [address], [place] [id number] Dec, [facility] [address] [id number] [address] [place] [address], [place] [id number] Dec, [facility] [address] [id number] [address] [place] [address], [place] [id number] Dec, [facility] [address] [id number] [address] [place] [address], [place] [id number] Dec, [facility] [address] [id number] [address] [place] [address], [place] [id number] 18 Dec, 2011 [facility] [address] [id number] [address] [place] [address], [place] [id number] Dec, [facility] [address] [id number] [address] [place] [address], [place] [id number] Dec, [facility] [address] [id number] [address] [place] [address], [place] [id number] Dec, [facility] [address] [id number] [address] [place] [address], [place] [id number] October, [facility] [address] [id number] [address] [place] [address], [place] [id number] October, [facility] [address] [id number] [address] [place] [address], [place] [address] October, [facility] [address] [id number] [address] [place] [address], [place] [id number] October, [facility] [address] [id number] [address] [place] [address], [place] [address] October, [facility] [address] [id number] [address] [place] [address], [place] [id number] October, [facility] [address] [id number] [address] [place] [address], [place] [address] Oct, [facility] [address] [id number] [address] [place] [address], [place] [id number] Oct, [facility] [address] [id number] [address] [place] [address], [place] [id number] Oct, [facility] [address] [id number] [address] [place] [address], [place] [address] Oct, [facility] [address] [id number] [address] [place] [address], [place] [id number] Oct, [facility] [address] [id number] [address] [place] [address], [place] [id number] Oct, [facility] [address] [id number] [address] [place] [address], [place] [address] Oct, [facility] [address] [id number] [address] [place] [address], [place] [id number] 29 Sep, [address] [facility] [address] [id number] [address] [place] [address], [place] [address] 29 Sep, [address] [facility] [address] [id number] [address] [place] [address], [place] [address] 19 Sep, [address] [facility] [address] [id number] [address] [place] [address], [place] [id number] 13 Sep, 2011 [facility] [address] [id number] [address] [place] [address], [place] [id number] 05 Sep, [address] [facility] [address] [id number] [address] [place] [address], [place] [id number] 05 Sep, 2011 [facility] [address] [id number] [address] [place] [address], [place] [address] 27 Aug, [address] [facility] [address] [id number] [address] [place] [address], [place] [address] 20 Aug, [address] [facility] [address] [id number] [address] [place] [address], [place] [id number] 08 Aug, 2011 [facility] [address] [id number] [address] [place] [address], [place] [id number] 31 Jul, 2011 [facility] [address] [id number] [address] [place] [address], [place] [id number] Jul, [facility] [address] [id number] [address] [place] [address], [place] [id number] Jul, [facility] [address] [id number] [address] [place] [address], [place] [id number] Jul, [facility] [address] [id number] [address] [place] [address], [place] [address] 28 Jun, 2011 [facility] [address] [id number] [address] [place] [address], [place] [id number] 12 Jun, [address] [facility] [address] [id number] [address] [place] [address], [place] [address] May, [facility] [address] [id number] [address] [place] [phone] May, [facility] [address] [id number] [address] [place] [id number] May, [facility] [address] [id number] [address] [place] [id number] May, [facility] [address] [id number] [address] [place] [phone] May, [facility] [address] [id number] [address] [place] [id number] Apr, [facility] [address] [id number] [address] [place] [id number] Apr, [facility] [address] [id number] [address] [place] [phone] Apr, [facility] [address] [id number] [address] [place] [id number] Jan, [facility] [address] [id number] [address] [place] [phone] Dec, [facility] [address] [id number] [address] [place] [id number] October, [facility] [address] [id number] [address] [place] [id number] Jun, [facility] [address] [id number] [address] [place] [id number] Apr, [facility] [address] [id number] [address] [place] [phone] Apr, [facility] [address] [id number] [address] [place] [id number] Apr, [facility] [address] [id number] [address] [place] [id number] Jun, IMMUNIZATIONS No Known Immunizations SOCIAL HISTORY [...]
--- OUTSIDE RECORDS SUMMARY | 2020-01-25 12:46 | XMS REPORT ---
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 Name Role Phone DRAKE COSME Unavailable PROBLEMS Type Condition ICD9-CM Code [id number] Code Onset Dates Condition S tatus SNOMED Code Problem Attention deficit R41.840 Active 76 125161 Problem Chronic hepatitis C without hepatic coma B18.2 Active 590608589 Problem Cannabis abuse F12.10 Active 53255 009 Problem Bipolar disorder, in partial remission, most rec ent episode hypomanic F31.71 Active 612642701 Problem Attention deficit hyperactivity disorder (ADHD), combi luciano type F90.2 Active 86286025 Problem Bipolar 1 disorder F31.9 Active 3 73027197 Problem H/O laminectomy Z98.89 Active 1616 04460 Problem Other chronic pain G89.29 Active 8 6744564 Problem Anxiety disorder, unspecified type F41.9 Active [id number] ALLERGIES No Information ENCOUNTERS Encounter Location Date Diagnosis [facility] [address] [facility] [id number] [address] [place] [phone] Dec, [facility] [address] [facility] [id number] [address] [place] [address] October, [facility] [address] [facility] [id number] [address] [place] [address] October, [facility] [address] [facility] [id number] [address] [place] [address] October, [facility] [address] [facility] [id number] [address] [place] [address] October, Other chronic pain G89.29 an d Chronic hepatitis C without hepatic coma B18.2 [facility] [address] [facility] [id number] [address] [place] [address] Aug, Bipolar disorder, in partial remission, most recent episode hypomanic F31.71 ; Attention deficit hyperactivity disorder (ADHD), combined type F90.2 and Anxiety disorder, unspecified type F41.9 [facility] [address] [id number] [address] [place] [address] Aug, [facility] [address] [id number] [address] [place] [address] Aug, Bipolar disorder, in partial remission, most recent episode hypomanic F31.71 [facility] [address] [id number] [address] [place] [address] Aug, [facility] [address] [id number] [address] [place] [address] Aug, Bipolar disorder, in partial remission, most recent episode hypomanic F31.71 [facility] [address] [id number] [address] [place] [address] Aug, Bipolar disorder, in partial remission, most recent episode hypomanic F31.71 ; Attention deficit hyperactivity disorder (ADHD), combined type F90.2 and Anxiety disorder, unspecified type F41.9 [facility] [address] [id number] [address] [place] [address] Aug, Low back pain M54.5 and Pain in left wrist M25.532 [facility] [address] [id number] [address] [place] [address] Aug, [facility] [address] [id number] [address] [place] [id number] Jun, [facility] [address] [id number] [address] [place] [address] Apr, Bipolar disorder, in partial remission, most recent episode hypomanic F31.71 [facility] [address] [id number] [address] [place] [address] Apr, [facility] [address] [id number] [address] [place] [address] Apr, Bipolar disorder, in partial remission, most recent episode hypomanic F31.71 ; Attention deficit hyperactivity disorder (ADHD), combined type F90.2 ; Anxiety disorder, unspecified type F41.9 and Other mcc (current) 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 Z79.899 [facility] [address] [id number] [address] [place] [address] Apr, Bipolar disorder, in partial remission, most recent episode hypomanic F31.71 [facility] [address] [id number] [address] [place] [address] Apr, Bipolar disorder, in partial remission, most recent episode hypomanic F31.71 [facility] [address] [id number] [address] [place] [address] Mar, [facility] [address] [id number] [address] [place] [address] Mar, Bipolar disorder, in partial remission, most recent episode hypomanic F31.71 ; Encounter for immunization Z23 and Low back pain M54.5 [facility] [address] [id number] [address] [place] [address] Mar, Bipolar disorder, in partial remission, most recent episode hypomanic F31.71 [facility] [address] [id number] [address] [place] [address] Mar, Bipolar disorder, in partial remission, most recent episode hypomanic F31.71 [facility] [address] [id number] [address] [place] [address] Jan, Bipolar disorder, in partial remission, most recent episode hypomanic F31.71 [facility] [address] [id number] [address] [place] [address] Jan, Bipolar disorder, in partial remission, most recent episode hypomanic F31.71 [facility] [address] [id number] [address] [place] [address] Dec, Bipolar disorder, in partial remission, most recent episode hypomanic F31.71 [facility] [address] [id number] [address] [place] [address] Dec, Bipolar disorder, in partial remission, most recent episode hypomanic F31.71 ; Attention deficit hyperactivity disorder (ADHD), combined type F90.2 ; Anxiety disorder, unspecified type F41.9 and Other mcc (current) 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 Z79.899 [facility] [address] [id number] [address] [place] [address] Dec, Bipolar disorder, in partial remission, most recent episode hypomanic F31.71 [facility] [address] [id number] [address] [place] [address] Dec, Bipolar disorder, in partial remission, most recent episode hypomanic F31.71 [facility] [address] [id number] [address] [place] [address] October, Bipolar disorder, in partial remission, most recent episode hypomanic F31.71 [facility] [address] [facility] [id number] [address] [place] [address] October, [facility] [address] [id number] [address] [place] [address] October, [facility] [address] [facility] [id number] [address] [place] [address] Oct, Bipolar disorder, in partial remission, most recent episode hypomanic F31.71 ; Attention deficit hyperactivity disorder (ADHD), combined type F90.2 ; Anxiety disorder, unspecified type F41.9 and Encounter for drug screening Z02.83 [facility] [address] [id number] [address] [place] [address] Oct, Bipolar disorder, in partial remission, most recent episode hypomanic F31.71 [facility] [address] [facility] [id number] [address] [place] [address] Oct, Bipolar disorder, in partial remission, most recent episode hypomanic F31.71 [facility] [address] [facility] [id number] [address] [place] [address] Aug, Bipolar disorder, in partial remission, most recent episode hypomanic F31.71 [facility] [address] [facility] [id number] [address] [place] [address] Aug, Bipolar disorder, in partial remission, most recent episode hypomanic F31.71 [facility] [address] [facility] [id number] [address] [place] [address] Aug, Bipolar disorder, in partial remission, most recent episode hypomanic F31.71 [facility] [address] [facility] [id number] [address] [place] [address] Jul, Bipolar disorder, in partial remission, most recent episode hypomanic F31.71 ; Attention deficit hyperactivity disorder (ADHD), combined type F90.2 and Anxiety disorder, unspecified type F41.9 [facility] [address] [facility] [id number] [address] [place] [address] Jul, Bipolar disorder, in partial remission, most recent episode hypomanic F31.71 [facility] [address] [facility] [id number] [address] [place] [address] Jun, Bipolar disorder, in partial remission, most recent episode hypomanic F31.71 [facility] [address] [facility] [id number] [address] [place] [address] May, Bipolar disorder, in partial remission, most recent episode hypomanic F31.71 [facility] [address] [facility] [id number] [address] [place] [address] May, Bipolar disorder, in partial remission, most recent episode hypomanic F31.71 [facility] [address] [facility] [id number] [address] [place] [address] Apr, [facility] [address] [facility] [id number] [address] [place] [address] Apr, Bipolar disorder, in partial remission, most recent episode hypomanic F31.71 ; Attention deficit hyperactivity disorder (ADHD), combined type F90.2 ; Anxiety disorder, unspecified type F41.9 and Cannabis abuse F12.10 [facility] [address] [id number] [address] [place] [address] 13 Apr, 2017 Attention deficit hyperactiv ity disorder (ADHD), combined type F90.2 [facility] [address] [facility] [id number] [address] [place] [phone] Mar, Attention deficit hyperactiv ity disorder (ADHD), combined type F90.2 [facility] [address] [facility] [id number] [address] [place] [address] 14 Mar, 2017 Anxiety disorder, unspecifie d type F41.9 [facility] [address] [id number] [address] [place] [address] Jan, Attention deficit hyperactiv ity disorder (ADHD), combined type F90.2 [facility] [address] [facility] [id number] [address] [place] [address] Jan, Anxiety disorder, unspecifie d type F41.9 [facility] [address] [facility] [id number] [address] [place] [address] Jan, Other chronic pain G89.29 ; Chronic hepatitis C without hepatic coma B18.2 and Bipolar 1 disorder F31.9 [facility] [address] [facility] [id number] [address] [place] [address] Dec, Attention deficit hyperactiv ity disorder (ADHD), combined type F90.2 [facility] [address] [facility] [id number] [address] [place] [address] Dec, Bipolar disorder, in partial remission, most recent episode hypomanic F31.71 ; Attention deficit hyperactivity disorder (ADHD), combined type F90.2 and Anxiety disorder, unspecified type F41.9 [facility] [address] [facility] [id number] [address] [place] [address] Dec, Bipolar disorder, in partial remission, most recent episode hypomanic F31.71 ; Attention deficit hyperactivity disorder (ADHD), combined type F90.2 and Anxiety disorder, unspecified type F41.9 [facility] [address] [facility] [id number] [address] [place] [address] Dec, Bipolar 1 disorder F31.9 and Attention deficit R41.840 [facility] [address] [id number] [address] [place] [address] Oct, Other chronic pain G89.29 ; Alopecia L65.9 and Screening, lipid Z13.220 [facility] [address] [id number] [address] [place] [address] Oct, [facility] [address] [id number] [address] [place] [address] Aug, [facility] [address] [id number] [place] [address] Aug, Eustachian tube dysfunction, right H69.81 ; Vertigo R42 and Other chronic pain G89.29 [facility] [address] [id number] [address] [place] [address] Aug, [facility] [address] [id number] [address] [place] [address] Jun, [facility] [address] [id number] [address] [place] [address] Jun, Low back pain M54.5 and Othe r chronic pain G89.29 [facility] [address] [place] [id number] [address] [place] [address] Jun, [facility] [address] [facility] [id number] [address] [place] [address] May, [facility] [address] [id number] [address] [place] [address] Jan, [facility] [address] [id number] [address] [place] [address] Dec, [facility] [address] [id number] [address] [place] [address] Dec, [facility] [address] [id number] [address] [place] [address] Jun, [facility] [address] [id number] [address] [place] [address] Apr, Eustachian tube dysfunction, unspecified laterality H69.80 ; Hot flashes N95.1 and Encounter for immunization Z23 [facility] [address] [id number] [address] [place] [address] Jan, [facility] [address] [id number] [address] [place] [address] Jan, [facility] [address] [id number] [address] [place] [address] Jan, [facility] [address] [facility] [id number] [address] [place] [address] Jan, [facility] [address] [facility] [id number] [address] [place] [address] Jan, Encounter to establish care V65.8 ; Bipolar 1 disorder 296.7 ; Abdominal pain 789.00 ; Constipation 564.00 ; Hard of hearing 389.9 and Drug abuse 305.90 [facility] [address] [facility] [id number] [address] [place] [address] Dec, [facility] [address] [facility] [id number] [address] [place] [address] October, [facility] [address] [facility] [id number] [address] [place] [phone] October, [facility] [address] [id number] [address] [place] [phone] Oct, [facility] [address] [id number] [address] [place] [address] Oct, [facility] [address] [facility] [id number] [address] [place] [address] Oct, [facility] [address] [facility] [id number] [address] [place] [address] Aug, [facility] [address] [id number] [address] [place] [address], [place] [address] Aug, [facility] [address] [id number] [address] [place] [address], [place] [address] Aug, [facility] [address] [id number] [address] [place] [address], [place] [address] Aug, 2014 [facility] [address] [id number] [address] [place] [address], [place] [address] Aug, 2014 [facility] [address] [id number] [address] [place] [address], [place] [address] Aug, 2014 [facility] [address] [id number] [address] [place] [address], [place] [address] Aug, 2014 [facility] [address] [id number] [address] [place] [address], [place] [address] Aug, 2014 [facility] [address] [id number] [address] [place] [address], [place] [address] Aug, 2014 [facility] [address] [id number] [address] [place] [address], [place] [address] Aug, 2014 [facility] [address] [id number] [address] [place] [address], [place] [address] Aug, 2014 [facility] [address] [id number] [address] [place] [address], [place] [address] Aug, 2014 [facility] [address] [id number] [address] [place] [address], [place] [address] Aug, 2014 [facility] [address] [id number] [address] [place] [address], [place] [address] Aug, 2014 [facility] [address] [id number] [address] [place] [address], [place] [address] Aug, 2014 [facility] [address] [id number] [address] [place] [address], [place] [address] Jul, [facility] [address] [id number] [address] [place] [address], [place] [address] Jul, [facility] [address] [id number] [address] [place] [address], [place] [address] Jul, [facility] [address] [id number] [address] [place] [address], [place] [address] Jul, [facility] [address] [id number] [address] [place] [address], [place] [address] Jul, [facility] [address] [id number] [address] [place] [address], [place] [address] Jul, [facility] [address] [id number] [address] [place] [address], [place] [address] Jul, [facility] [address] [id number] [address] [place] [address], [place] [address] Jul, [facility] [address] [id number] [address] [place] [address], [place] [address] Jun, [facility] [address] [id number] [address] [place] [address], [place] [address] Jun, [facility] [address] [id number] [address] [place] [address], [place] [address] Jun, [facility] [address] [id number] [address] [place] [address], [place] [address] Jun, [facility] [address] [id number] [address] [place] [address], [place] [address] 18 Jun, 2014 [facility] [address] [id number] [address] [place] [address], [place] [address] 15 Jun, 2014 [facility] [address] [id number] [address] [place] [address], [place] [address] Jun, [facility] [address] [id number] [address] [place] [address], [place] [address] Jun, [facility] [address] [id number] [address] [place] [address], [place] [address] Jun, [facility] [address] [id number] [address] [place] [address], [place] [address] Jun, [facility] [address] [id number] [address] [place] [address], [place] [address] Jun, [facility] [address] [id number] [address] [place] [address], [place] [address] May, [facility] [address] [id number] [address] [place] [address], [place] [address] May, [facility] [address] [id number] [address] [place] [address], [place] [address] May, [facility] [address] [id number] [address] [place] [address], [place] [address] May, [facility] [address] [id number] [address] [place] [address], [place] [address] May, [facility] [address] [id number] [address] [place] [address], [place] [address] May, [facility] [address] [id number] [address] [place] [address], [place] [address] May, [facility] [address] [id number] [address] [place] [address], [place] [address] Apr, [facility] [address] [id number] [address] [place] [address] Apr, [facility] [address] [id number] [address] [place] [address] Apr, [facility] [address] [id number] [address] [place] [address], [place] [address] Apr, [facility] [address] [id number] [address] [place] [address], [place] [address] Apr, [facility] [address] [id number] [address] [place] [address] Apr, [facility] [address] [id number] [address] [place] [address] Mar, [facility] [address] [id number] [address] [place] [address], [place] [address] Mar, [facility] [address] [id number] [address] [place] [address], [place] [address] Mar, [facility] [address] [id number] [address] [place] [address], [place] [address] Mar, [facility] [address] [id number] [address] [place] [address], [place] [address] Mar, [facility] [address] [id number] [address] [place] [address], [place] [address] Mar, [facility] [address] [id number] [address] [place] [address], [place] [address] Jan, [facility] [address] [id number] [address] [place] [address], [place] [address] Jan, [facility] [address] [id number] [address] [place] [address], [place] [address] Jan, [facility] [address] [id number] [address] [place] [address], [place] [address] Jan, [facility] [address] [id number] [address] [place] [address], [place] [address] Dec, [facility] [address] [id number] [address] [place] [address], [place] [address] Dec, [facility] [address] [id number] [address] [place] [address], [place] [address] Dec, [facility] [address] [id number] [address] [place] [address], [place] [address] Dec, [facility] [address] [id number] [address] [place] [address], [place] [address] Dec, [facility] [address] [id number] [address] [place] [address], [place] [address] Dec, [facility] [address] [id number] [facility] [place] [address] 30 Dec, 2013 [facility] [address] [id number] [address] [place] [address], [place] [address] Dec, [facility] [address] [id number] [address] [place] [address], [place] [address] Dec, [facility] [address] [id number] [address] [place] [address], [place] [address] Dec, [facility] [address] [id number] [address] [place] [address], [place] [address] Dec, [facility] [address] [id number] [address] [place] [address], [place] [address] Dec, [facility] [address] [id number] [address] [place] [address], [place] [address] October, [facility] [address] [id number] [address] [place] [address], [place] [address] October, [facility] [address] [id number] [address] [place] [address], [place] [address] October, [facility] [address] [id number] [address] [place] [address], [place] [address] October, [facility] [address] [id number] [address] [place] [address], [place] [address] October, [facility] [address] [id number] [address] [place] [address], [place] [address] October, [facility] [address] [id number] [address] [place] [address], [place] [address] Oct, [facility] [address] [id number] [address] [place] [address], [place] [address] Oct, [facility] [address] [id number] [address] [place] [address], [place] [address] Oct, [facility] [address] [id number] [address] [place] [address], [place] [address] Oct, [facility] [address] [address] [id number] [facility] [place] [address] Oct, [facility] [address] [id number] [address] [place] [address], [place] [address] Oct, [facility] [address] [id number] [address] [place] [address], [place] [address] Oct, [facility] [address] [id number] [address] [place] [address], [place] [address] Oct, [facility] [address] [id number] [address] [place] [address], [place] [address] Oct, [facility] [address] [id number] [address] [place] [address], [place] [address] Oct, [facility] [address] [id number] [address] [place] [address], [place] [address] Oct, [facility] [address] [id number] [address] [place] [address], [place] [address] Oct, [facility] [address] [id number] [address] [place] [address], [place] [address] Aug, [facility] [address] [id number] [address] [place] [address], [place] [address] Aug, [facility] [address] [id number] [address] [place] [address], [place] [address] Aug, [facility] [address] [id number] [address] [place] [address], [place] [address] Aug, [facility] [address] [id number] [address] [place] [address], [place] [address] Aug, [facility] [address] [id number] [address] [place] [address], [place] [address] Aug, [facility] [address] [id number] [address] [place] [address], [place] [address] Aug, [facility] [address] [id number] [address] [place] [address], [place] [address] Aug, [facility] [address] [id number] [address] [place] [address], [place] [address] Aug, [facility] [address] [id number] [address] [place] [address], [place] [address] 24 Aug, 2013 [facility] [address] [id number] [address] [place] [address], [place] [address] Aug, 2013 [facility] [address] [id number] [address] [place] [address], [place] [address] Aug, [facility] [address] [id number] [address] [place] [address], [place] [address] Aug, [facility] [address] [id number] [address] [place] [address], [place] [address] 20 Aug, 2013 [facility] [address] [id number] [address] [place] [address], [place] [address] 14 Aug, 2013 [facility] [address] [id number] [address] [place] [address], [place] [address] 14 Aug, 2013 [facility] [address] [id number] [address] [place] [address], [place] [address] 14 Aug, 2013 [facility] [address] [id number] [address] [place] [address], [place] [address] 14 Aug, 2013 [facility] [address] [id number] [address] [place] [address], [place] [address] 07 Aug, 2013 [facility] [address] [id number] [address] [place] [address], [place] [address] 07 Aug, 2013 [facility] [address] [id number] [address] [place] [address], [place] [address] 06 Aug, 2013 [facility] [address] [id number] [address] [place] [address], [place] [address] 06 Aug, 2013 [facility] [address] [id number] [address] [place] [address], [place] [address] Aug, [facility] [address] [id number] [address] [place] [address], [place] [address] Aug, [facility] [address] [id number] [address] [place] [address], [place] [address] Aug, [facility] [address] [id number] [address] [place] [address], [place] [address] Jul, [facility] [address] [id number] [address] [place] [address], [place] [address] Jul, [facility] [address] [id number] [address] [place] [address], [place] [address] Jul, [facility] [address] [id number] [address] [place] [address], [place] [address] Jul, [facility] [address] [id number] [address] [place] [address], [place] [address] Jul, [facility] [address] [id number] [address] [place] [address], [place] [address] Jul, [facility] [address] [id number] [address] [place] [address], [place] [address] Jul, [facility] [address] [id number] [address] [place] [address], [place] [address] Jul, [facility] [address] [id number] [address] [place] [address], [place] [address] Jul, [facility] [address] [id number] [address] [place] [address], [place] [address] Jul, [facility] [address] [id number] [address] [place] [address], [place] [address] Jul, [facility] [address] [id number] [address] [place] [address], [place] [address] Jul, [facility] [address] [id number] [address] [place] [address], [place] [address] Jul, [facility] [address] [id number] [address] [place] [address], [place] [address] Jul, [facility] [address] [id number] [address] [place] [address], [place] [address] Jul, [facility] [address] [id number] [address] [place] [address], [place] [address] Jul, [facility] [address] [id number] [address] [place] [address], [place] [address] Jul, [facility] [address] [id number] [address] [place] [address], [place] [address] Jul, [facility] [address] [id number] [address] [place] [address], [place] [address] Jul, [facility] [address] [id number] [address] [place] [address], [place] [address] Jul, [facility] [address] [id number] [address] [place] [address], [place] [address] Jun, [facility] [address] [id number] [address] [place] [address], [place] [address] Jun, [facility] [address] [id number] [address] [place] [address], [place] [address] Jun, [facility] [address] [id number] [address] [place] [address], [place] [address] Jun, [facility] [address] [id number] [address] [place] [address], [place] [address] Jun, [facility] [address] [id number] [address] [place] [address], [place] [address] Jun, [facility] [address] [id number] [address] [place] [address], [place] [address] Jun, [facility] [address] [id number] [address] [place] [address], [place] [address] Jun, [facility] [address] [id number] [address] [place] [address], [place] [address] Jun, [facility] [address] [id number] [address] [place] [address], [place] [address] Jun, [facility] [address] [id number] [address] [place] [address], [place] [address] Jun, [facility] [address] [id number] [address] [place] [address], [place] [address] Jun, [facility] [address] [id number] [address] [place] [address], [place] [address] Jun, [facility] [address] [id number] [address] [place] [address], [place] [address] Jun, [facility] [address] [id number] [address] [place] [address], [place] [address] Jun, [facility] [address] [id number] [address] [place] [address], [place] [address] 18 Jun, 2013 [facility] [address] [id number] [address] [place] [address], [place] [address] 18 Jun, 2013 [facility] [address] [id number] [address] [place] [address], [place] [address] 17 Jun, 2013 [facility] [address] [id number] [address] [place] [address], [place] [address] 17 Jun, 2013 [facility] [address] [id number] [address] [place] [address], [place] [address] 13 Jun, 2013 [facility] [address] [id number] [address] [place] [address], [place] [address] 12 Jun, 2013 [facility] [address] [id number] [address] [place] [address], [place] [address] 12 Jun, 2013 [facility] [address] [id number] [address] [place] [address], [place] [address] 09 Jun, 2013 [facility] [address] [id number] [address] [place] [address], [place] [address] 05 Jun, 2013 [facility] [address] [id number] [address] [place] [address], [place] [address] 05 Jun, 2013 [facility] [address] [id number] [address] [place] [address], [place] [address] Jun, [facility] [address] [id number] [address] [place] [address], [place] [address] Jun, [facility] [address] [id number] [address] [place] [address], [place] [address] May, [facility] [address] [id number] [address] [place] [address], [place] [address] May, [facility] [address] [id number] [address] [place] [address], [place] [address] May, [facility] [address] [id number] [address] [place] [address], [place] [address] May, [facility] [address] [id number] [address] [place] [address], [place] [address] May, [facility] [address] [id number] [address] [place] [address], [place] [address] May, [facility] [address] [id number] [address] [place] [address], [place] [address] 30 Apr, 2013 [facility] [address] [id number] [address] [place] [address], [place] [address] 30 Apr, 2013 [facility] [address] [id number] [address] [place] [address], [place] [address] 30 Apr, 2013 [facility] [address] [id number] [address] [place] [address], [place] [address] 30 Apr, 2013 [facility] [address] [id number] [address] [place] [address], [place] [address] Apr, [facility] [address] [id number] [address] [place] [address], [place] [address] 15 Apr, 2013 [facility] [address] [id number] [address] [place] [address] 15 Apr, 2013 [facility] [address] [id number] [address] [place] [address], [place] [address] Apr, [facility] [address] [id number] [address] [place] [address], [place] [address] 26 Mar, 2012 [facility] [address] [id number] [address] [place] [address], [place] [address] 24 Mar, 2012 [facility] [address] [id number] [address] [place] [address], [place] [address] 17 Mar, 2012 [facility] [address] [id number] [address] [place] [address], [place] [address] 17 Mar, 2012 [facility] [address] [id number] [address] [place] [address], [place] [address] 11 Mar, 2013 [facility] [address] [id number] [address] [place] [address], [place] [address] 10 Mar, 2013 [facility] [address] [id number] [address] [place] [address], [place] [address] 05 Mar, 2013 [facility] [address] [id number] [address] [place] [address], [place] [address] 04 Mar, 2013 [facility] [address] [id number] [address] [place] [address], [place] [address] 20 Jan, 2013 [facility] [address] [id number] [address] [place] [address], [place] [address] Jan, [facility] [address] [id number] [address] [place] [address], [place] [address] 14 Jan, 2013 [facility] [address] [id number] [address] [place] [address], [place] [address] Jan, [facility] [address] [id number] [address] [place] [address], [place] [address] Jan, [facility] [address] [id number] [address] [place] [address], [place] [address] 05 Jan, 2013 [facility] [address] [id number] [address] [place] [address], [place] [address] 31 Dec, 2012 [facility] [address] [id number] [facility] [place] [address] 24 Dec, 2012 [facility] [address] [id number] [address] [place] [address], [place] [address] 22 Dec, 2012 [facility] [address] [id number] [address] [place] [address], [place] [address] 19 Dec, 2012 [facility] [address] [id number] [address] [place] [address], [place] [address] 18 Dec, 2012 [facility] [address] [id number] [address] [place] [address], [place] [address] 17 Dec, 2012 [facility] [address] [id number] [address] [place] [address], [place] [address] 16 Dec, 2012 [facility] [address] [id number] [address] [place] [address], [place] [address] 16 Dec, 2012 [facility] [address] [id number] [address] [place] [address], [place] [address] 15 Dec, 2012 [facility] [address] [id number] [address] [place] [address], [place] [address] 10 Dec, 2012 [facility] [address] [id number] [address] [place] [address], [place] [address] 28 Dec, 2012 [facility] [address] [id number] [address] [place] [address], [place] [address] 25 Dec, 2012 [facility] [address] [id number] [address] [place] [address], [place] [address] 19 Dec, 2012 [facility] [address] [id number] [address] [place] [address], [place] [address] 17 Dec, 2012 [facility] [address] [id number] [address] [place] [address], [place] [address] 13 Dec, 2012 [facility] [address] [id number] [address] [place] [address], [place] [address] 11 Dec, 2012 [facility] [address] [id number] [address] [place] [address], [place] [address] October, [facility] [address] [id number] [address] [place] [address], [place] [address] October, [facility] [address] [id number] [address] [place] [address], [place] [address] October, [facility] [address] [id number] [address] [place] [address], [place] [address] October, [facility] [address] [id number] [address] [place] [address], [place] [address] October, [facility] [address] [id number] [address] [place] [address], [place] [address] October, [facility] [address] [id number] [address] [place] [address], [place] [address] October, [facility] [address] [id number] [address] [place] [address], [place] [address] Oct, [facility] [address] [id number] [address] [place] [address], [place] [address] Oct, [facility] [address] [id number] [address] [place] [address], [place] [address] 24 Oct, 2012 [facility] [address] [id number] [address] [place] [address], [place] [address] 23 Oct, 2012 [facility] [address] [id number] [address] [place] [address], [place] [address] 19 Oct, 2012 [facility] [address] [id number] [address] [place] [address], [place] [address] 18 Oct, 2012 [facility] [address] [id number] [address] [place] [address], [place] [address] 17 Oct, 2012 [facility] [address] [id number] [address] [place] [address], [place] [address] 15 Oct, 2012 [facility] [address] [id number] [address] [place] [address], [place] [address] Oct, [facility] [address] [id number] [address] [place] [address], [place] [address] Oct, [facility] [address] [id number] [address] [place] [address], [place] [address] Oct, [facility] [address] [id number] [address] [place] [address], [place] [address] Oct, [facility] [address] [id number] [address] [place] [address], [place] [address] Aug, [facility] [address] [id number] [address] [place] [address], [place] [address] Aug, [facility] [address] [id number] [address] [place] [address], [place] [address] Aug, [facility] [address] [id number] [address] [place] [address], [place] [address] Aug, [facility] [address] [id number] [address] [place] [address], [place] [address] Aug, [facility] [address] [id number] [address] [place] [address], [place] [address] Aug, [facility] [address] [id number] [address] [place] [address], [place] [address] Aug, [facility] [address] [id number] [address] [place] [address], [place] [address] Aug, [facility] [address] [id number] [address] [place] [address], [place] [address] Aug, [facility] [address] [id number] [address] [place] [address], [place] [address] Aug, [facility] [address] [id number] [address] [place] [address], [place] [address] 29 Jul, 2012 [facility] [address] [id number] [address] [place] [address], [place] [address] 15 Jul, 2012 [facility] [address] [id number] [address] [place] [address], [place] [address] 08 Jul, 2012 [facility] [address] [id number] [address] [place] [address], [place] [address] 20 Jun, 2012 [facility] [address] [id number] [address] [place] [address], [place] [address] 18 Jun, 2012 [facility] [address] [id number] [address] [place] [address], [place] [address] 18 Jun, 2012 [facility] [address] [id number] [address] [place] [address], [place] [address] 18 Jun, 2012 [facility] [address] [id number] [address] [place] [address], [place] [address] 18 Jun, 2012 [facility] [address] [id number] [address] [place] [address], [place] [address] 14 Jun, 2012 [facility] [address] [id number] [address] [place] [address], [place] [address] 14 Jun, 2012 [facility] [address] [id number] [address] [place] [address], [place] [address] 13 Jun, 2012 [facility] [address] [id number] [address] [place] [address], [place] [address] 13 Jun, 2012 [facility] [address] [id number] [address] [place] [address], [place] [address] 11 Jun, 2012 [facility] [address] [id number] [address] [place] [address], [place] [address] 11 Jun, 2012 [facility] [address] [id number] [address] [place] [address], [place] [address] 11 Jun, 2012 [facility] [address] [id number] [address] [place] [address], [place] [address] 11 Jun, 2012 [facility] [address] [id number] [address] [place] [address], [place] [address] 07 Jun, 2012 [facility] [address] [id number] [address] [place] [address], [place] [address] 07 Jun, 2012 [facility] [address] [id number] [address] [place] [address], [place] [address] Jun, [facility] [address] [id number] [address] [place] [address], [place] [address] Jun, [facility] [address] [id number] [address] [place] [address], [place] [address] Jun, [facility] [address] [id number] [address] [place] [address], [place] [address] Jun, [facility] [address] [id number] [address] [place] [address], [place] [address] Jun, [facility] [address] [id number] [address] [place] [address], [place] [address] Jun, [facility] [address] [id number] [address] [place] [address], [place] [address] Jun, [facility] [address] [id number] [address] [place] [address], [place] [address] Jun, [facility] [address] [id number] [address] [place] [address], [place] [address] May, [facility] [address] [id number] [address] [place] [address], [place] [address] May, [facility] [address] [id number] [address] [place] [address], [place] [address] May, [facility] [address] [id number] [address] [place] [address], [place] [address] May, [facility] [address] [id number] [address] [place] [address], [place] [address] May, [facility] [address] [id number] [address] [place] [address], [place] [address] May, [facility] [address] [id number] [address] [place] [address], [place] [address] May, [facility] [address] [id number] [address] [place] [address], [place] [address] May, [facility] [address] [id number] [address] [place] [address], [place] [address] 30 Apr, 2012 [facility] [address] [id number] [address] [place] [address], [place] [address] 30 Apr, 2012 [facility] [address] [id number] [address] [place] [address], [place] [address] 29 Apr, 2012 [facility] [address] [id number] [address] [place] [address], [place] [address] Apr, [facility] [address] [id number] [address] [place] [address], [place] [address] Apr, [facility] [address] [id number] [address] [place] [id number] Apr, [facility] [address] [id number] [address] [place] [address], [place] [address] Apr, [facility] [address] [id number] [address] [place] [address], [place] [address] Apr, [facility] [address] [id number] [address] [place] [address], [place] [address] Apr, [facility] [address] [id number] [address] [place] [id number] 08 Apr, 2012 [facility] [address] [id number] [address] [place] [address] 04 Apr, 2012 [facility] [address] [id number] [address] [place] [id number] 02 Apr, 2012 [facility] [address] [id number] [address] [place] [address], [place] [address] 19 Mar, 2012 [facility] [address] [id number] [address] [place], [place] [address], [place] [address] 18 Mar, 2012 [facility] [address] [id number] [address] [place] [id number] 12 Mar, 2012 [facility] [address] [id number] [address] [place] [address], [place] [address] Mar, [facility] [address] [id number] [address] [place] [address], [place] [id number] Mar, [facility] [address] [id number] [address] [place] [id number] Mar, [facility] [address] [id number] [address] [place] [address], [place] [address] Mar, [facility] [address] [id number] [address] [place] [address], [place] [address] Jan, [facility] [address] [id number] [address] [place] [address], [place] [address] Jan, [facility] [address] [id number] [address] [place] [address], [place] [id number] Jan, [facility] [address] [id number] [address] [place] [id number] Jan, [facility] [address] [id number] [address] [place] [address], [place] [address] Jan, [facility] [address] [id number] [address] [place] [address], [place] [address] Jan, [facility] [address] [id number] [address] [place] [address], [place] [address] Jan, [facility] [address] [id number] [address] [place] [address], [place] [address] Jan, [facility] [address] [id number] [address] [place] [address], [place] [address] Jan, [facility] [address] [id number] [address] [place] [address], [place] [address] Jan, [facility] [address] [id number] [address] [place] [address], [place] [address] Jan, [facility] [address] [id number] [address] [place] [address], [place] [address] Dec, [facility] [address] [id number] [facility] [place] [address] 27 Jan, 2012 [facility] [address] [id number] [facility] [place] [address] 26 Jan, 2012 [facility] [address] [id number] [facility] [place] [address] 26 Jan, 2012 [facility] [address] [id number] [address] [place] [address], [place] [address] 20 Jan, 2012 [facility] [address] [id number] [address] [place] [address], [place] [address] 19 Jan, 2012 [facility] [address] [id number] [address] [place] [address], [place] [address] 18 Jan, 2012 [facility] [address] [id number] [address] [place] [address], [place] [address] 17 Jan, 2012 [facility] [address] [id number] [address] [place] [address], [place] [address] 16 Jan, 2012 [facility] [address] [id number] [address] [place] [address], [place] [address] Dec, [facility] [address] [id number] [address] [place] [address], [place] [address] Dec, [facility] [address] [id number] [address] [place] [address], [place] [address] 02 Jan, 2012 [facility] [address] [id number] [address] [place] [address], [place] [address] Dec, [facility] [address] [id number] [address] [place] [address], [place] [address] Dec, [facility] [address] [id number] [address] [place] [address], [place] [address] 25 Dec, 2011 [facility] [address] [id number] [address] [place] [address], [place] [address] 18 Dec, 2011 [facility] [address] [id number] [address] [place] [address], [place] [address] Dec, [facility] [address] [id number] [address] [place] [address], [place] [address] Dec, [facility] [address] [id number] [address] [place] [address], [place] [address] Dec, [facility] [address] [id number] [address] [place] [address], [place] [address] October, [facility] [address] [id number] [address] [place] [address], [place] [address] October, [facility] [address] [id number] [address] [place] [address], [place] [address] October, [facility] [address] [id number] [address] [place] [address], [place] [address] October, [facility] [address] [id number] [address] [place] [address], [place] [address] October, [facility] [address] [id number] [address] [place] [address], [place] [address] October, [facility] [address] [id number] [address] [place] [address], [place] [address] Oct, [facility] [address] [id number] [address] [place] [address], [place] [address] Oct, [facility] [address] [id number] [address] [place] [address], [place] [address] Oct, [facility] [address] [id number] [address] [place] [address], [place] [address] Oct, [facility] [address] [id number] [address] [place] [address], [place] [address] Oct, [facility] [address] [id number] [address] [place] [address], [place] [address] Oct, [facility] [address] [id number] [address] [place] [address], [place] [address] Oct, [facility] [address] [id number] [address] [place] [address], [place] [address] 29 Sep, 2011 [facility] [address] [id number] [address] [place] [address], [place] [address] 29 Sep, 2011 [facility] [address] [id number] [address] [place] [address], [place] [address] 19 Sep, 2011 [facility] [address] [id number] [address] [place] [address], [place] [address] 13 Sep, 2011 [facility] [address] [id number] [address] [place] [address], [place] [address] 05 Sep, 2011 [facility] [address] [id number] [address] [place] [address], [place] [address] 05 Sep, 2011 [facility] [address] [id number] [address] [place] [address], [place] [address] 27 Aug, 2011 [facility] [address] [id number] [address] [place] [address], [place] [address] 20 Aug, 2011 [facility] [address] [id number] [address] [place] [address], [place] [address] 08 Aug, 2011 [facility] [address] [id number] [address] [place] [address], [place] [address] Jul, [facility] [address] [id number] [address] [place] [address], [place] [address] Jul, [facility] [address] [id number] [address] [place] [address], [place] [address] Jul, [facility] [address] [id number] [address] [place] [address], [place] [address] Jul, [facility] [address] [id number] [address] [place] [address], [place] [address] Jun, [facility] [address] [id number] [address] [place] [address], [place] [address] Jun, [facility] [address] [id number] [address] [place] [address], [place] [address] May, [facility] [address] [id number] [address] [place] [address] May, [facility] [address] [id number] [address] [place] [address] May, [facility] [address] [id number] [address] [place] [address] May, [facility] [address] [id number] [address] [place] [address] May, [facility] [address] [id number] [address] [place] [address] Apr, [facility] [address] [id number] [address] [place] [address] Apr, [facility] [address] [id number] [address] [place] [address] Apr, [facility] [address] [id number] [address] [place] [id number] Jan, [facility] [address] [id number] [address] [place] [address] Dec, [facility] [address] [id number] [address] [place] [address] October, [facility] [address] [id number] [address] [place] [id number] Jun, [facility] [address] [id number] [address] [place] [address] Apr, [facility] [address] [id number] [address] [place] [address] Apr, [facility] [address] [id number] [address] [place] [address] Apr, [facility] [address] [id number] [address] [place] [id number] Jun, IMMUNIZATIONS No Known Immunizations SOCIAL HISTORY Never Assessed REASON FOR VISIT PLAN OF CARE VITAL SIGNS Height 69 in 2014-08-08 Weight 204.1 lbs 2014-08-08 Temperature 97 degrees Fahrenheit 2014-08-08 Heart Rate 100 bpm 2014-08-08 Respiratory Rate 22 2014-08-08 Blood pressure systolic 140 mmHg 2014-08-08 Blood pressure diastolic 90 mmHg 2014-08-08 MEDICATIONS Unknown Medications RESULTS No Results PROCEDURES [...]
--- OUTSIDE RECORDS SUMMARY | 2020-01-25 12:46 | XMS REPORT ---
Author Author Ana Iraheta Organization [facility] Address [address] [place] [address] Care Team Providers Care Irrigation Equipment Remover Name Role Phone MELISA Iraheta Unavailable PROBLEMS Type Condition ICD9-CM Code VOX39-GL Code Onset Dates Condition S tatus SNOMED Code Problem Attention deficit R41.840 Active 76 192950 Problem Chronic hepatitis C without hepatic coma B18.2 Active 256183195 Problem Cannabis abuse F12.10 Active 03587 009 Problem Bipolar disorder, in partial remission, most rec ent episode hypomanic F31.71 Active 539600790 Problem Attention deficit hyperactivity disorder (ADHD), combi luciano type F90.2 Active 57056366 Problem Bipolar 1 disorder F31.9 Active 3 40659353 Problem H/O laminectomy Z98.89 Active 1616 59834 Problem Other chronic pain G89.29 Active 8 4212836 Problem Anxiety disorder, unspecified type F41.9 Active 829213484 ALLERGIES No Information ENCOUNTERS Encounter Location Date Diagnosis [facility] [address] [facility] [id number] [address] [place] [phone] 08 Dec, 2018 [facility] [address] [facility] [id number] [address] [place] [phone] October, [facility] [address] [facility] [id number] [address] [place] [id number] October, [facility] [address] [facility] [id number] [address] [place] [id number] October, [facility] [address] [facility] [id number] [address] [place] [phone] October, Other chronic pain G89.29 an d Chronic hepatitis C without hepatic coma B18.2 [facility] [address] [facility] [id number] [address] [place] [phone] Aug, Bipolar disorder, in partial remission, most recent episode hypomanic F31.71 ; Attention deficit hyperactivity disorder (ADHD), combined type F90.2 and Anxiety disorder, unspecified type F41.9 [facility] [address] [id number] [address] [place] [phone] Aug, [facility] [address] [id number] [address] [place] [phone] Aug, Bipolar disorder, in partial remission, most recent episode hypomanic F31.71 [facility] [address] [id number] [address] [place] [phone] Aug, [facility] [address] [id number] [address] [place] [phone] Aug, Bipolar disorder, in partial remission, most recent episode hypomanic F31.71 [facility] [address] [id number] [address] [place] [phone] Aug, Bipolar disorder, in partial remission, most recent episode hypomanic F31.71 ; Attention deficit hyperactivity disorder (ADHD), combined type F90.2 and Anxiety disorder, unspecified type F41.9 [facility] [address] [id number] [address] [place] [phone] Aug, Low back pain M54.5 and Pain in left wrist M25.532 [facility] [address] [id number] [address] [place] [phone] Aug, [facility] [address] [id number] [address] [place] [phone] Jun, [facility] [address] [id number] [address] [place] [phone] Apr, Bipolar disorder, in partial remission, most recent episode hypomanic F31.71 [facility] [address] [id number] [address] [place] [id number] Apr, [facility] [address] [id number] [address] [place] [address] Apr, Bipolar disorder, in partial remission, most recent episode hypomanic F31.71 ; Attention deficit hyperactivity disorder (ADHD), combined type F90.2 ; Anxiety disorder, unspecified type F41.9 and Other longterm (current) 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 Z79.899 [facility] [address] [id number] [address] [place] [id number] Apr, Bipolar disorder, in partial remission, most recent episode hypomanic F31.71 [facility] [address] [facility] [id number] [address] [place] [id number] Apr, Bipolar disorder, in partial remission, most recent episode hypomanic F31.71 [facility] [address] [id number] [address] [place] [phone] Mar, [facility] [address] [facility] [id number] [address] [place] [phone] Mar, Bipolar disorder, in partial remission, most recent episode hypomanic F31.71 ; Encounter for immunization Z23 and Low back pain M54.5 [facility] [address] [id number] [address] [place] [phone] Mar, Bipolar disorder, in partial remission, most recent episode hypomanic F31.71 [facility] [address] [id number] [address] [place] [phone] Mar, Bipolar disorder, in partial remission, most recent episode hypomanic F31.71 [facility] [address] [facility] [id number] [address] [place] [address] Jan, Bipolar disorder, in partial remission, most recent episode hypomanic F31.71 [facility] [address] [facility] [id number] [address] [place] [address] Jan, Bipolar disorder, in partial remission, most recent episode hypomanic F31.71 [facility] [address] [id number] [address] [place] [address] Dec, Bipolar disorder, in partial remission, most recent episode hypomanic F31.71 [facility] [address] [id number] [address] [place] [phone] Dec, Bipolar disorder, in partial remission, most recent episode hypomanic F31.71 ; Attention deficit hyperactivity disorder (ADHD), combined type F90.2 ; Anxiety disorder, unspecified type F41.9 and Other longterm (current) 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 Z79.899 [facility] [address] [id number] [address] [place] [phone] Dec, Bipolar disorder, in partial remission, most recent episode hypomanic F31.71 [facility] [address] [id number] [address] [place] [address] Dec, Bipolar disorder, in partial remission, most recent episode hypomanic F31.71 [facility] [address] [id number] [address] [place] [address] October, Bipolar disorder, in partial remission, most recent episode hypomanic F31.71 [facility] [address] [id number] [address] [place] [id number] October, [facility] [address] [id number] [address] [place] [phone] October, [facility] [address] [id number] [address] [place] [phone] Oct, Bipolar disorder, in partial remission, most recent episode hypomanic F31.71 ; Attention deficit hyperactivity disorder (ADHD), combined type F90.2 ; Anxiety disorder, unspecified type F41.9 and Encounter for drug screening Z02.83 [facility] [address] [id number] [address] [place] [phone] Oct, Bipolar disorder, in partial remission, most recent episode hypomanic F31.71 [facility] [address] [id number] [address] [place] [phone] Oct, Bipolar disorder, in partial remission, most recent episode hypomanic F31.71 [facility] [address] [id number] [address] [place] [phone] Aug, Bipolar disorder, in partial remission, most recent episode hypomanic F31.71 [facility] [address] [id number] [address] [place] [address] Aug, Bipolar disorder, in partial remission, most recent episode hypomanic F31.71 [facility] [address] [id number] [address] [place] [phone] Aug, Bipolar disorder, in partial remission, most recent episode hypomanic F31.71 [facility] [address] [id number] [address] [place] [phone] Jul, Bipolar disorder, in partial remission, most recent episode hypomanic F31.71 ; Attention deficit hyperactivity disorder (ADHD), combined type F90.2 and Anxiety disorder, unspecified type F41.9 [facility] [address] [facility] [id number] [address] [place] [phone] Jul, Bipolar disorder, in partial remission, most recent episode hypomanic F31.71 [facility] [address] [id number] [address] [place] [phone] Jun, Bipolar disorder, in partial remission, most recent episode hypomanic F31.71 [facility] [address] [facility] [id number] [address] [place] [phone] May, Bipolar disorder, in partial remission, most recent episode hypomanic F31.71 [facility] [address] [facility] [id number] [address] [place] [phone] May, Bipolar disorder, in partial remission, most recent episode hypomanic F31.71 [facility] [address] [facility] [id number] [address] [place] [phone] Apr, [facility] [address] [facility] [id number] [address] [place] [id number] Apr, Bipolar disorder, in partial remission, most recent episode hypomanic F31.71 ; Attention deficit hyperactivity disorder (ADHD), combined type F90.2 ; Anxiety disorder, unspecified type F41.9 and Cannabis abuse F12.10 [facility] [address] [facility] [id number] [address] [place] [phone] 13 Apr, 2017 Attention deficit hyperactiv ity disorder (ADHD), combined type F90.2 [facility] [address] [facility] [id number] [address] [place] [id number] 21 Mar, 2017 Attention deficit hyperactiv ity disorder (ADHD), combined type F90.2 [facility] [address] [facility] [id number] [address] [place] [phone] 14 Mar, 2017 Anxiety disorder, unspecifie d type F41.9 [facility] [address] [facility] [id number] [address] [place] [phone] Jan, Attention deficit hyperactiv ity disorder (ADHD), combined type F90.2 [place] [facility] [address] [place] [id number] [address] [place] [phone] Jan, Anxiety disorder, unspecifie d type F41.9 [facility] [address] [place] [id number] [address] [place] [address] Jan, Other chronic pain G89.29 ; Chronic hepatitis C without hepatic coma B18.2 and Bipolar 1 disorder F31.9 [facility] [address] [place] [id number] [address] [place] [phone] Dec, Attention deficit hyperactiv ity disorder (ADHD), combined type F90.2 [facility] [address] [facility] [id number] [address] [place] [address] Dec, Bipolar disorder, in partial remission, most recent episode hypomanic F31.71 ; Attention deficit hyperactivity disorder (ADHD), combined type F90.2 and Anxiety disorder, unspecified type F41.9 [facility] [address] [facility] [id number] [address] [place] [phone] Dec, Bipolar disorder, in partial remission, most recent episode hypomanic F31.71 ; Attention deficit hyperactivity disorder (ADHD), combined type F90.2 and Anxiety disorder, unspecified type F41.9 [facility] [address] [place] [id number] [address] [place] [id number] Dec, Bipolar 1 disorder F31.9 and Attention deficit R41.840 [facility] [address] [facility] [id number] [address] [place] [id number] Oct, Other chronic pain G89.29 ; Alopecia L65.9 and Screening, lipid Z13.220 [facility] [address] [facility] [id number] [address] [place] [phone] Oct, [facility] [address] [facility] [id number] [address] [place] [phone] Aug, [facility] [address] [place] [id number] [address] [place] [phone] Aug, Eustachian tube dysfunction, right H69.81 ; Vertigo R42 and Other chronic pain G89.29 [facility] [address] [place] [id number] [address] [place] [phone] Aug, [facility] [address] [facility] [id number] [address] [place] [phone] Jun, [facility] [address] [facility] [id number] [address] [place] [id number] Jun, Low back pain M54.5 and Othe r chronic pain G89.29 [facility] [address] [facility] [id number] [address] [place] [phone] Jun, [facility] [address] [facility] [id number] [address] [place] [phone] May, [facility] [address] [facility] [id number] [address] [place] [id number] Jan, [facility] [address] [facility] [id number] [address] [place] [phone] Dec, [facility] [address] [facility] [id number] [address] [place] [phone] Dec, [facility] [address] [facility] [id number] [address] [place] [phone] Jun, [facility] [address] [id number] [address] [place] [phone] Apr, Eustachian tube dysfunction, unspecified laterality H69.80 ; Hot flashes N95.1 and Encounter for immunization Z23 [facility] [address] [facility] [id number] [address] [place] [id number] Jan, [facility] [address] [id number] [address] [place] [address] Jan, [facility] [address] [id number] [address] [place] [phone] Jan, [facility] [address] [facility] [id number] [address] [place] [phone] Jan, [facility] [address] [facility] [id number] [address] [place] [id number] Jan, Encounter to establish care V65.8 ; Bipolar 1 disorder 296.7 ; Abdominal pain 789.00 ; Constipation 564.00 ; Hard of hearing 389.9 and Drug abuse 305.90 [facility] [address] [facility] [id number] [address] [place] [address] Dec, [facility] [address] [facility] [id number] [address] [place] [phone] October, [facility] [address] [facility] [id number] [address] [place] [address] October, [facility] [address] [id number] [address] [place] [phone] Oct, [facility] [address] [facility] [id number] [address] [place] [phone] Oct, [facility] [address] [facility] [id number] [address] [place] [phone] Oct, [facility] [address] [facility] [id number] [address] [place] [phone] Aug, [facility] [address] [id number] [address] [place] [address], [place] [id number] Aug, [facility] [address] [id number] [address] [place] [address], [place] [id number] Aug, [facility] [address] [id number] [address] [place] [address], [place] [id number] Aug, 2014 [facility] [address] [id number] [address] [place] [address], [place] [id number] Aug, 2014 [facility] [address] [id number] [address] [place] [address], [place] [id number] Aug, 2014 [facility] [address] [id number] [address] [place] [address], [place] [id number] Aug, 2014 [facility] [address] [id number] [address] [place] [address], [place] [id number] Aug, 2014 [facility] [address] [id number] [address] [place] [address], [place] [id number] Aug, 2014 [facility] [address] [id number] [address] [place] [address], [place] [id number] Aug, 2014 [facility] [address] [id number] [address] [place] [address], [place] [id number] Aug, 2014 [facility] [address] [id number] [address] [place] [address], [place] [id number] Aug, 2014 [facility] [address] [id number] [address] [place] [address], [place] [id number] Aug, 2014 [facility] [address] [id number] [address] [place] [address], [place] [id number] Aug, 2014 [facility] [address] [id number] [address] [place] [address], [place] [id number] Aug, 2014 [facility] [address] [id number] [address] [place] [address], [place] [id number] Jul, [facility] [address] [id number] [address] [place] [address], [place] [id number] Jul, [facility] [address] [id number] [address] [place] [address], [place] [id number] Jul, [facility] [address] [id number] [address] [place] [address], [place] [id number] Jul, [facility] [address] [id number] [address] [place] [address], [place] [id number] Jul, [facility] [address] [id number] [address] [place] [address], [place] [id number] Jul, [facility] [address] [id number] [address] [place] [address], [place] [id number] Jul, [facility] [address] [id number] [address] [place] [address], [place] [id number] Jul, [facility] [address] [id number] [address] [place] [address], [place] [id number] Jun, [facility] [address] [id number] [address] [place] [address], [place] [id number] Jun, [facility] [address] [id number] [address] [place] [address], [place] [id number] Jun, [facility] [address] [id number] [address] [place] [address], [place] [id number] Jun, [facility] [address] [id number] [address] [place] [address], [place] [id number] Jun, [facility] [address] [id number] [address] [place] [address], [place] [id number] Jun, [facility] [address] [id number] [address] [place] [address], [place] [id number] Jun, [facility] [address] [id number] [address] [place] [address], [place] [id number] Jun, [facility] [address] [id number] [address] [place] [address], [place] [id number] Jun, [facility] [address] [id number] [address] [place] [address], [place] [id number] Jun, [facility] [address] [id number] [address] [place] [address], [place] [id number] Jun, [facility] [address] [id number] [address] [place] [address], [place] [id number] May, [facility] [address] [id number] [address] [place] [address], [place] [id number] May, [facility] [address] [id number] [address] [place] [address], [place] [id number] May, [facility] [address] [id number] [address] [place] [address], [place] [id number] May, [facility] [address] [id number] [address] [place] [address], [place] [id number] May, [facility] [address] [id number] [address] [place] [address], [place] [id number] May, [facility] [address] [id number] [address] [place] [address], [place] [id number] May, [facility] [address] [id number] [address] [place] [address], [place] [id number] Apr, [facility] [address] [id number] [address] [place] [address], [place] [id number] Apr, [facility] [address] [id number] [address] [place] [phone] Apr, [facility] [address] [id number] [address] [place] [address], [place] [id number] Apr, [facility] [address] [id number] [address] [place] [address], [place] [id number] Apr, [facility] [address] [id number] [address] [place] [address], [place] [id number] Apr, [facility] [address] [id number] [address] [place] [address], [place] [id number] 29 Mar, 2013 [facility] [address] [id number] [address] [place] [address], [place] [id number] 29 Mar, 2013 [facility] [address] [id number] [address] [place] [address], [place] [id number] Mar, [facility] [address] [id number] [address] [place] [address], [place] [id number] Mar, [facility] [address] [id number] [address] [place] [address], [place] [id number] Mar, [facility] [address] [id number] [address] [place] [address], [place] [id number] Mar, [facility] [address] [id number] [address] [place] [address], [place] [id number] Jan, [facility] [address] [id number] [address] [place] [address], [place] [id number] Jan, [facility] [address] [id number] [address] [place] [address], [place] [id number] Jan, [facility] [address] [id number] [address] [place] [address], [place] [id number] Jan, [facility] [address] [id number] [address] [place] [address], [place] [id number] Dec, [facility] [address] [id number] [address] [place] [address], [place] [id number] Dec, [facility] [address] [id number] [address] [place] [address], [place] [id number] Dec, [facility] [address] [id number] [address] [place] [address], [place] [id number] Dec, [facility] [address] [id number] [address] [place] [address], [place] [id number] Dec, [facility] [address] [id number] [address] [place] [address], [place] [id number] Dec, [facility] [address] [id number] [facility] [place] [id number] Dec, [facility] [address] [id number] [address] [place] [address], [place] [id number] Dec, [facility] [address] [id number] [address] [place] [address], [place] [id number] Dec, [facility] [address] [id number] [address] [place] [address], [place] [id number] Dec, [facility] [address] [id number] [address] [place] [address], [place] [id number] Dec, [facility] [address] [id number] [address] [place] [address], [place] [id number] Dec, [facility] [address] [id number] [address] [place] [address], [place] [id number] October, [facility] [address] [id number] [address] [place] [address], [place] [id number] October, [facility] [address] [id number] [address] [place] [address], [place] [id number] October, [facility] [address] [id number] [address] [place] [address], [place] [id number] October, [facility] [address] [id number] [address] [place] [address], [place] [id number] October, [facility] [address] [id number] [address] [place] [address], [place] [id number] October, [facility] [address] [id number] [address] [place] [address], [place] [id number] Oct, [facility] [address] [id number] [address] [place] [address], [place] [id number] Oct, [facility] [address] [id number] [address] [place] [address], [place] [id number] Oct, [facility] [address] [id number] [address] [place] [address], [place] [id number] Oct, [facility] [address] [id number] [facility] [place] [id number] Oct, [facility] [address] [id number] [address] [place], [place] [address], [place] [id number] Oct, [facility] [address] [id number] [address] [place] [address], [place] [id number] Oct, [facility] [address] [id number] [address] [place] [address], [place] [id number] Oct, [facility] [address] [id number] [address] [place] [address], [place] [id number] Oct, [facility] [address] [id number] [address] [place] [address], [place] [id number] Oct, [facility] [address] [id number] [address] [place] [address], [place] [id number] Oct, [facility] [address] [id number] [address] [place] [address], [place] [id number] Oct, [facility] [address] [id number] [address] [place] [address], [place] [id number] Aug, [facility] [address] [id number] [address] [place] [address], [place] [id number] Aug, [facility] [address] [id number] [address] [place] [address], [place] [id number] Aug, [facility] [address] [id number] [address] [place] [address], [place] [id number] Aug, [facility] [address] [id number] [address] [place] [address], [place] [id number] 05 Aug, 2013 [facility] [address] [id number] [address] [place] [address], [place] [id number] 05 Aug, 2013 [facility] [address] [id number] [address] [place] [address], [place] [id number] Aug, [facility] [address] [id number] [address] [place] [address], [place] [id number] Aug, [facility] [address] [id number] [address] [place] [address], [place] [id number] Aug, [facility] [address] [id number] [address] [place] [address], [place] [id number] Aug, [facility] [address] [id number] [address] [place] [address], [place] [id number] 24 Aug, 2013 [facility] [address] [id number] [address] [place] [address], [place] [id number] Aug, [facility] [address] [id number] [address] [place] [address], [place] [id number] Aug, [facility] [address] [id number] [address] [place] [address], [place] [id number] 20 Aug, 2013 [facility] [address] [id number] [address] [place] [address], [place] [id number] 14 Aug, 2013 [facility] [address] [id number] [address] [place] [address], [place] [id number] Aug, [facility] [address] [id number] [address] [place] [address], [place] [id number] Aug, [facility] [address] [id number] [address] [place] [address], [place] [id number] Aug, [facility] [address] [id number] [address] [place] [address], [place] [id number] Aug, [facility] [address] [id number] [address] [place] [address], [place] [id number] Aug, [facility] [address] [id number] [address] [place] [address], [place] [id number] Aug, [facility] [address] [id number] [address] [place] [address], [place] [id number] Aug, [facility] [address] [id number] [address] [place] [address], [place] [id number] Aug, [facility] [address] [id number] [address] [place] [address], [place] [id number] Aug, [facility] [address] [id number] [address] [place] [address], [place] [id number] Aug, [facility] [address] [id number] [address] [place] [address], [place] [id number] Jul, [facility] [address] [id number] [address] [place] [address], [place] [id number] Jul, [facility] [address] [id number] [address] [place] [address], [place] [id number] Jul, [facility] [address] [id number] [address] [place] [address], [place] [id number] Jul, [facility] [address] [id number] [address] [place] [address], [place] [id number] Jul, [facility] [address] [id number] [address] [place] [address], [place] [id number] Jul, [facility] [address] [id number] [address] [place] [address], [place] [id number] Jul, [facility] [address] [id number] [address] [place] [address], [place] [id number] Jul, [facility] [address] [id number] [address] [place] [address], [place] [id number] Jul, [facility] [address] [id number] [address] [place] [address], [place] [id number] Jul, [facility] [address] [id number] [address] [place] [address], [place] [id number] Jul, [facility] [address] [id number] [address] [place] [address], [place] [id number] Jul, [facility] [address] [id number] [address] [place] [address], [place] [id number] Jul, [facility] [address] [id number] [address] [place] [address], [place] [id number] Jul, [facility] [address] [id number] [address] [place] [address], [place] [id number] Jul, [facility] [address] [id number] [address] [place] [address], [place] [id number] Jul, [facility] [address] [id number] [address] [place] [address], [place] [id number] Jul, [facility] [address] [id number] [address] [place] [address], [place] [id number] Jul, [facility] [address] [id number] [address] [place] [address], [place] [id number] Jul, [facility] [address] [id number] [address] [place] [address], [place] [id number] Jul, [facility] [address] [id number] [address] [place] [address], [place] [id number] Jun, [facility] [address] [id number] [address] [place] [address], [place] [id number] Jun, [facility] [address] [id number] [address] [place] [address], [place] [id number] Jun, [facility] [address] [id number] [address] [place] [address], [place] [id number] Jun, [facility] [address] [id number] [address] [place] [address], [place] [id number] Jun, [facility] [address] [id number] [address] [place] [address], [place] [id number] Jun, [facility] [address] [id number] [address] [place] [address], [place] [id number] Jun, [facility] [address] [id number] [address] [place] [address], [place] [id number] Jun, [facility] [address] [id number] [address] [place] [address], [place] [id number] 24 Jun, 2013 [facility] [address] [id number] [address] [place] [address], [place] [id number] Jun, [facility] [address] [id number] [address] [place] [address], [place] [id number] Jun, [facility] [address] [id number] [address] [place] [address], [place] [id number] Jun, [facility] [address] [id number] [address] [place] [address], [place] [id number] Jun, [facility] [address] [id number] [address] [place] [address], [place] [id number] Jun, [facility] [address] [id number] [address] [place] [address], [place] [id number] Jun, [facility] [address] [id number] [address] [place] [address], [place] [id number] 18 Jun, 2013 [facility] [address] [id number] [address] [place] [address], [place] [id number] 18 Jun, 2013 [facility] [address] [id number] [address] [place] [address], [place] [id number] 17 Jun, 2013 [facility] [address] [id number] [address] [place] [address], [place] [id number] 17 Jun, 2013 [facility] [address] [id number] [address] [place] [address], [place] [id number] 13 Jun, 2013 [facility] [address] [id number] [address] [place] [address], [place] [id number] 12 Jun, 2013 [facility] [address] [id number] [address] [place] [address], [place] [id number] 12 Jun, 2013 [facility] [address] [id number] [address] [place] [address], [place] [id number] 09 Jun, 2013 [facility] [address] [id number] [address] [place] [address], [place] [id number] 05 Jun, 2013 [facility] [address] [id number] [address] [place] [address], [place] [id number] 05 Jun, 2013 [facility] [address] [id number] [address] [place] [address], [place] [id number] Jun, [facility] [address] [id number] [address] [place] [address], [place] [id number] Jun, [facility] [address] [id number] [address] [place] [address], [place] [id number] May, [facility] [address] [id number] [address] [place] [address], [place] [id number] May, [facility] [address] [id number] [address] [place] [address], [place] [id number] May, [facility] [address] [id number] [address] [place] [address], [place] [id number] May, [facility] [address] [id number] [address] [place] [address], [place] [id number] May, [facility] [address] [id number] [address] [place] [address], [place] [id number] May, [facility] [address] [id number] [address] [place] [address], [place] [id number] Apr, [facility] [address] [id number] [address] [place] [address], [place] [id number] 30 Apr, 2013 [facility] [address] [id number] [address] [place] [address], [place] [id number] 30 Apr, 2013 [facility] [address] [id number] [address] [place] [address], [place] [id number] 30 Apr, 2013 [facility] [address] [id number] [address] [place] [address], [place] [id number] Apr, [facility] [address] [id number] [address] [place] [address], [place] [id number] 15 Apr, 2013 [facility] [address] [id number] [address] [place] [address], [place] [id number] 15 Apr, 2013 [facility] [address] [id number] [address] [place] [address], [place] [id number] Apr, [facility] [address] [id number] [address] [place] [address], [place] [id number] 26 Mar, 2012 [facility] [address] [id number] [address] [place] [address], [place] [id number] 24 Mar, 2012 [facility] [address] [id number] [address] [place] [address], [place] [id number] 17 Mar, 2012 [facility] [address] [id number] [address] [place] [address], [place] [id number] 17 Mar, 2012 [facility] [address] [id number] [address] [place] [address], [place] [id number] 11 Mar, 2013 [facility] [address] [id number] [address] [place] [address], [place] [id number] 10 Mar, 2012 [facility] [address] [id number] [address] [place] [address], [place] [id number] 05 Mar, 2013 [facility] [address] [id number] [address] [place] [address], [place] [id number] 04 Mar, 2013 [facility] [address] [id number] [address] [place] [address], [place] [id number] 20 Jan, 2013 [facility] [address] [id number] [address] [place] [address], [place] [id number] Jan, [facility] [address] [id number] [address] [place] [address], [place] [id number] 14 Jan, 2013 [facility] [address] [id number] [address] [place] [address], [place] [id number] Jan, [facility] [address] [id number] [address] [place] [address], [place] [id number] Jan, [facility] [address] [id number] [address] [place] [address], [place] [id number] 05 Jan, 2013 [facility] [address] [id number] [address] [place] [address], [place] [id number] 31 Dec, 2012 [facility] [address] [id number] [address] [place] [address], [place] [id number] 24 Dec, 2012 [facility] [address] [id number] [address] [place] [address], [place] [id number] 22 Dec, 2012 [facility] [address] [id number] [address] [place] [address], [place] [id number] 19 Dec, 2012 [facility] [address] [id number] [address] [place] [address], [place] [id number] 18 Dec, 2012 [facility] [address] [id number] [address] [place] [address], [place] [id number] 17 Dec, 2012 [facility] [address] [id number] [address] [place] [address], [place] [id number] 16 Dec, 2012 [facility] [address] [id number] [address] [place] [address], [place] [id number] 16 Dec, 2012 [facility] [address] [id number] [address] [place] [address], [place] [id number] 15 Dec, 2012 [facility] [address] [id number] [address] [place] [address], [place] [id number] 10 Dec, 2012 [facility] [address] [id number] [address] [place] [address], [place] [id number] 28 Dec, 2012 [facility] [address] [id number] [address] [place] [address], [place] [id number] 25 Dec, 2012 [facility] [address] [id number] [address] [place] [address], [place] [id number] 19 Dec, 2012 [facility] [address] [id number] [address] [place] [address], [place] [id number] 17 Dec, 2012 [facility] [address] [id number] [address] [place] [address], [place] [id number] 13 Dec, 2012 [facility] [address] [id number] [address] [place] [address], [place] [id number] 11 Dec, 2012 [facility] [address] [id number] [address] [place] [address], [place] [id number] October, [facility] [address] [id number] [address] [place] [address], [place] [id number] October, [facility] [address] [id number] [address] [place] [address], [place] [id number] October, [facility] [address] [id number] [address] [place] [address], [place] [id number] October, [facility] [address] [id number] [address] [place] [address], [place] [id number] October, [facility] [address] [id number] [address] [place] [address], [place] [id number] October, [facility] [address] [id number] [address] [place] [address], [place] [id number] October, [facility] [address] [id number] [address] [place] [address], [place] [id number] Oct, [facility] [address] [id number] [address] [place] [address], [place] [id number] Oct, [facility] [address] [id number] [address] [place] [address], [place] [id number] Oct, [facility] [address] [id number] [address] [place] [address], [place] [id number] Oct, [facility] [address] [id number] [address] [place] [address], [place] [id number] Oct, [facility] [address] [id number] [address] [place] [address], [place] [id number] 18 Oct, 2012 [facility] [address] [id number] [address] [place] [address], [place] [id number] 17 Oct, 2012 [facility] [address] [id number] [address] [place] [address], [place] [id number] 15 Oct, 2012 [facility] [address] [id number] [address] [place] [address], [place] [id number] Oct, [facility] [address] [id number] [address] [place] [address], [place] [id number] Oct, [facility] [address] [id number] [address] [place] [address], [place] [id number] Oct, [facility] [address] [id number] [address] [place] [address], [place] [id number] Oct, [facility] [address] [id number] [address] [place] [address], [place] [id number] Aug, [facility] [address] [id number] [address] [place] [address], [place] [id number] Aug, [facility] [address] [id number] [address] [place] [address], [place] [id number] Aug, [facility] [address] [id number] [address] [place] [address], [place] [id number] Aug, [facility] [address] [id number] [address] [place] [address], [place] [id number] Aug, [facility] [address] [id number] [address] [place] [address], [place] [id number] Aug, [facility] [address] [id number] [address] [place] [address], [place] [id number] Aug, [facility] [address] [id number] [address] [place] [address], [place] [id number] Aug, [facility] [address] [id number] [address] [place] [address], [place] [id number] Aug, [facility] [address] [id number] [address] [place] [address], [place] [id number] Aug, [facility] [address] [id number] [address] [place] [address], [place] [id number] Jul, [facility] [address] [id number] [address] [place] [address], [place] [id number] Jul, [facility] [address] [id number] [address] [place] [address], [place] [id number] 08 Jul, 2012 [facility] [address] [id number] [address] [place] [address], [place] [id number] 20 Jun, 2012 [facility] [address] [id number] [address] [place] [address], [place] [id number] 18 Jun, 2012 [facility] [address] [id number] [address] [place] [address], [place] [id number] 18 Jun, 2012 [facility] [address] [id number] [address] [place] [address], [place] [id number] 18 Jun, 2012 [facility] [address] [id number] [address] [place] [address], [place] [id number] 18 Jun, 2012 [facility] [address] [id number] [address] [place] [address], [place] [id number] 14 Jun, 2012 [facility] [address] [id number] [address] [place] [address], [place] [id number] 14 Jun, 2012 [facility] [address] [id number] [address] [place] [address], [place] [id number] 13 Jun, 2012 [facility] [address] [id number] [address] [place] [address], [place] [id number] 13 Jun, 2012 [facility] [address] [id number] [address] [place] [address], [place] [id number] 11 Jun, 2012 [facility] [address] [id number] [address] [place] [address], [place] [id number] 11 Jun, 2012 [facility] [address] [id number] [address] [place] [address], [place] [id number] 11 Jun, 2012 [facility] [address] [id number] [address] [place] [address], [place] [id number] 11 Jun, 2012 [facility] [address] [id number] [address] [place] [address], [place] [id number] 07 Jun, 2012 [facility] [address] [id number] [address] [place] [address], [place] [id number] Jun, [facility] [address] [id number] [address] [place] [address], [place] [id number] Jun, [facility] [address] [id number] [address] [place] [address], [place] [id number] Jun, [facility] [address] [id number] [address] [place] [address], [place] [id number] Jun, [facility] [address] [id number] [address] [place] [address], [place] [id number] Jun, [facility] [address] [id number] [address] [place] [address], [place] [id number] Jun, [facility] [address] [id number] [address] [place] [address], [place] [id number] Jun, [facility] [address] [id number] [address] [place] [address], [place] [id number] Jun, [facility] [address] [id number] [address] [place] [address], [place] [id number] Jun, [facility] [address] [id number] [address] [place] [address], [place] [id number] May, [facility] [address] [id number] [address] [place] [address], [place] [id number] May, [facility] [address] [id number] [address] [place] [address], [place] [id number] May, [facility] [address] [id number] [address] [place] [address], [place] [id number] May, [facility] [address] [id number] [address] [place] [address], [place] [id number] May, [facility] [address] [id number] [address] [place] [address], [place] [id number] May, [facility] [address] [id number] [address] [place] [address], [place] [id number] May, [facility] [address] [id number] [address] [place] [phone] May, [facility] [address] [id number] [address] [place] [address], [place] [id number] 30 Apr, 2012 [facility] [address] [id number] [address] [place] [id number] 30 Apr, 2012 [facility] [address] [id number] [address] [place] [address], [place] [id number] 29 Apr, 2012 [facility] [address] [id number] [address] [place] [id number] Apr, [facility] [address] [id number] [address] [place] [address], [place] [id number] Apr, [facility] [address] [id number] [address] [place] [id number] Apr, [facility] [address] [id number] [address] [place] [id number] Apr, [facility] [address] [id number] [address] [place] [phone] Apr, [facility] [address] [id number] [address] [place] [id number] Apr, [facility] [address] [id number] [address] [place] [id number] 08 Apr, 2012 [facility] [address] [id number] [address] [place] [id number] 04 Apr, 2012 [facility] [address] [id number] [address] [place] [id number] 02 Apr, 2012 [facility] [address] [address] [id number] [address] [place] [id number] 19 Mar, 2012 [facility] [address] [id number] [address] [place] [id number] 18 Mar, 2012 [facility] [address] [id number] [address] [place] [id number] 12 Mar, 2012 [facility] [address] [id number] [address] [place] [address], [place] [id number] Mar, [facility] [address] [id number] [address] [place] [id number] Mar, [facility] [address] [id number] [address] [place] [address], [place] [id number] Mar, [facility] [address] [id number] [address] [place] [address], [place] [id number] Mar, [facility] [address] [id number] [address] [place] [address], [place] [id number] Jan, [facility] [address] [id number] [address] [place] [address], [place] [id number] Jan, [facility] [address] [id number] [address] [place] [address], [place] [id number] Jan, [facility] [address] [id number] [address] [place] [id number] Jan, [facility] [address] [id number] [address] [place] [address], [place] [id number] Jan, [facility] [address] [id number] [address] [place] [address], [place] [id number] Jan, [facility] [address] [id number] [address] [place] [address], [place] [id number] Jan, [facility] [address] [id number] [address] [place] [address], [place] [id number] Jan, [facility] [address] [id number] [address] [place] [address], [place] [id number] Jan, [facility] [address] [id number] [address] [place] [address], [place] [id number] Jan, [facility] [address] [id number] [address] [place] [address], [place] [id number] Jan, [facility] [address] [id number] [address] [place] [address], [place] [id number] Dec, [facility] [address] [id number] [address] [place] [address], [place] [id number] 27 Jan, 2012 [facility] [address] [id number] [address] [place] [address], [place] [id number] Dec, [facility] [address] [id number] [address] [place] [address], [place] [id number] 26 Jan, 2012 [facility] [address] [id number] [address] [place] [address], [place] [id number] 20 Jan, 2012 [facility] [address] [id number] [address] [place] [address], [place] [id number] 19 Jan, 2012 [facility] [address] [id number] [address] [place] [address], [place] [id number] 18 Jan, 2012 [facility] [address] [id number] [address] [place] [address], [place] [id number] 17 Jan, 2012 [facility] [address] [id number] [address] [place] [address], [place] [id number] 16 Jan, 2012 [facility] [address] [id number] [address] [place] [address], [place] [id number] Dec, [facility] [address] [id number] [address] [place] [address], [place] [id number] Dec, [facility] [address] [id number] [address] [place] [address], [place] [id number] Dec, [facility] [address] [id number] [address] [place] [address], [place] [id number] Dec, [facility] [address] [id number] [address] [place] [address], [place] [id number] Dec, [facility] [address] [id number] [address] [place] [address], [place] [id number] Dec, [facility] [address] [id number] [address] [place] [address], [place] [id number] 18 Dec, 2011 [facility] [address] [id number] [address] [place] [address], [place] [id number] Dec, [facility] [address] [id number] [address] [place] [address], [place] [id number] Dec, [facility] [address] [id number] [address] [place] [address], [place] [id number] Dec, [facility] [address] [id number] [address] [place] [address], [place] [id number] October, [facility] [address] [id number] [address] [place] [address], [place] [id number] October, [facility] [address] [id number] [address] [place] [address], [place] [id number] October, [facility] [address] [id number] [address] [place] [address], [place] [id number] October, [facility] [address] [id number] [address] [place] [address], [place] [id number] October, [facility] [address] [id number] [address] [place] [address], [place] [id number] October, [facility] [address] [id number] [address] [place] [address], [place] [id number] Oct, [facility] [address] [id number] [address] [place] [address], [place] [id number] Oct, [facility] [address] [id number] [address] [place] [address], [place] [id number] Oct, [facility] [address] [id number] [address] [place] [address], [place] [id number] Oct, [facility] [address] [id number] [address] [place] [address], [place] [id number] Oct, [facility] [address] [id number] [address] [place] [address], [place] [id number] Oct, [facility] [address] [id number] [address] [place] [address], [place] [id number] Oct, [facility] [address] [id number] [address] [place] [address], [place] [id number] 29 Sep, 2011 [facility] [address] [id number] [address] [place] [address], [place] [id number] 29 Sep, 2011 [facility] [address] [id number] [address] [place] [address], [place] [id number] 19 Sep, 2011 [facility] [address] [id number] [address] [place] [address], [place] [id number] 13 Sep, 2011 [facility] [address] [id number] [address] [place] [address], [place] [id number] 05 Sep, 2011 [facility] [address] [id number] [address] [place] [address], [place] [id number] 05 Sep, 2011 [facility] [address] [id number] [address] [place] [address], [place] [id number] 27 Aug, 2011 [facility] [address] [id number] [address] [place] [address], [place] [id number] 20 Aug, 2011 [facility] [address] [id number] [address] [place] [address], [place] [id number] 08 Aug, 2011 [facility] [address] [id number] [address] [place] [address], [place] [id number] 31 Jul, 2011 [facility] [address] [id number] [address] [place] [address], [place] [id number] Jul, [facility] [address] [id number] [address] [place] [address], [place] [id number] Jul, [facility] [address] [id number] [address] [place] [address], [place] [id number] Jul, [facility] [address] [id number] [address] [place] [address], [place] [id number] 28 Jun, 2011 [facility] [address] [id number] [address] [place] [address], [place] [id number] 12 Jun, 2011 [facility] [address] [id number] [address] [place] [address], [place] [id number] May, [facility] [address] [id number] [address] [place] [id number] May, [facility] [address] [id number] [address] [place] [phone] May, [facility] [address] [id number] [address] [place] [phone] May, [facility] [address] [id number] [address] [place] [phone] May, [facility] [address] [id number] [address] [place] [phone] Apr, [facility] [address] [id number] [address] [place] [phone] Apr, [facility] [address] [id number] [address] [place] [phone] Apr, [facility] [address] [id number] [address] [place] [phone] Jan, [facility] [address] [id number] [address] [place] [phone] Dec, [facility] [address] [id number] [address] [place] [phone] October, [facility] [address] [id number] [address] [place] [phone] Jun, [facility] [address] [id number] [address] [place] [phone] Apr, [facility] [address] [id number] [address] [place] [phone] Apr, [facility] [address] [id number] [address] [place] [id number] Apr, [facility] [address] [id number] [address] [place] [phone] Jun, IMMUNIZATIONS No Known Immunizations SOCIAL HISTORY [...]
--- OUTSIDE RECORDS SUMMARY | 2020-01-25 12:47 | XMS REPORT ---
Author Author MorenoAna Doctor Organization [facility] Address Unknown Phone Unavailable Care Team Providers Care Front Facer Name Role Phone Migration, Doctor Unavailable Unavailable PROBLEMS Type Condition ICD9-CM Code CCL58-JZ Code Onset Dates Condition S tatus SNOMED Code Problem Attention deficit R41.840 Active 76 227874 Problem Chronic hepatitis C without hepatic coma B18.2 Active 518476843 Problem Cannabis abuse F12.10 Active 45620 009 Problem Bipolar disorder, in partial remission, most rec ent episode hypomanic F31.71 Active 701120082 Problem Attention deficit hyperactivity disorder (ADHD), combi luciano type F90.2 Active 62694244 Problem Bipolar 1 disorder F31.9 Active 3 44002889 Problem H/O laminectomy Z98.89 Active 1616 14478 Problem Other chronic pain G89.29 Active 8 3270218 Problem Anxiety disorder, unspecified type F41.9 Active 681995563 ALLERGIES Substance Reaction Event Type Date Status Zyprexa Unknown Drug Allergy Oct, Active Hydrocodone Failed UDS (opiates, & THC) Non Drug Allergy Oct, 015 Active Benzodiazepines Failed UDS (opiates, & THC) Non Drug Allergy Oct Active ENCOUNTERS Encounter Location Date Diagnosis [facility] [address] [facility] [id number] [address] [place] [phone] Dec, [facility] [address] [facility] [id number] [address] [place] [phone] October, [facility] [address] [facility] [id number] [address] [place] [phone] October, [facility] [address] [facility] [id number] [address] [place] [phone] October, [facility] [address] [facility] [id number] [address] [place] [id number] October, Other chronic pain G89.29 an d Chronic hepatitis C without hepatic coma B18.2 [facility] [address] [id number] [address] [place] [phone] Aug, Bipolar disorder, in partial remission, most recent episode hypomanic F31.71 ; Attention deficit hyperactivity disorder (ADHD), combined type F90.2 and Anxiety disorder, unspecified type F41.9 [facility] [address] [id number] [address] [place] [phone] Aug, [facility] [address] [id number] [address] [place] [phone] Aug, Bipolar disorder, in partial remission, most recent episode hypomanic F31.71 [facility] [address] [id number] [address] [place] [phone] Aug, [facility] [address] [id number] [address] [place] [phone] Aug, Bipolar disorder, in partial remission, most recent episode hypomanic F31.71 [facility] [address] [id number] [address] [place] [phone] Aug, Bipolar disorder, in partial remission, most recent episode hypomanic F31.71 ; Attention deficit hyperactivity disorder (ADHD), combined type F90.2 and Anxiety disorder, unspecified type F41.9 [facility] [address] [id number] [address] [place] [phone] Aug, Low back pain M54.5 and Pain in left wrist M25.532 [facility] [address] [id number] [address] [place] [phone] Aug, [facility] [address] [id number] [address] [place] [id number] Jun, [facility] [address] [id number] [address] [place] [phone] Apr, Bipolar disorder, in partial remission, most recent episode hypomanic F31.71 [facility] [address] [id number] [address] [place] [id number] Apr, [facility] [address] [id number] [address] [place] [phone] Apr, Bipolar disorder, in partial remission, most recent episode hypomanic F31.71 ; Attention deficit hyperactivity disorder (ADHD), combined type F90.2 ; Anxiety disorder, unspecified type F41.9 and Other assisted (current) 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 Z79.899 [facility] [address] [id number] [address] [place] [id number] Apr, Bipolar disorder, in partial remission, most recent episode hypomanic F31.71 [facility] [address] [id number] [address] [place] [phone] Apr, Bipolar disorder, in partial remission, most recent episode hypomanic F31.71 [facility] [address] [facility] [id number] [address] [place] [phone] Mar, [facility] [address] [facility] [id number] [address] [place] [phone] Mar, Bipolar disorder, in partial remission, most recent episode hypomanic F31.71 ; Encounter for immunization Z23 and Low back pain M54.5 [facility] [address] [id number] [address] [place] [phone] Mar, Bipolar disorder, in partial remission, most recent episode hypomanic F31.71 [facility] [address] [id number] [address] [place] [phone] Mar, Bipolar disorder, in partial remission, most recent episode hypomanic F31.71 [facility] [address] [id number] [address] [place] [phone] Jan, Bipolar disorder, in partial remission, most recent episode hypomanic F31.71 [facility] [address] [facility] [id number] [address] [place] [phone] Jan, Bipolar disorder, in partial remission, most recent episode hypomanic F31.71 [facility] [address] [facility] [id number] [address] [place] [phone] Dec, Bipolar disorder, in partial remission, most recent episode hypomanic F31.71 [facility] [address] [id number] [address] [place] [id number] Dec, Bipolar disorder, in partial remission, most recent episode hypomanic F31.71 ; Attention deficit hyperactivity disorder (ADHD), combined type F90.2 ; Anxiety disorder, unspecified type F41.9 and Other assisted (current) 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 Z79.899 [facility] [address] [id number] [address] [place] [phone] Dec, Bipolar disorder, in partial remission, most recent episode hypomanic F31.71 [facility] [address] [id number] [address] [place] [phone] Dec, Bipolar disorder, in partial remission, most recent episode hypomanic F31.71 [facility] [address] [id number] [address] [place] [phone] October, Bipolar disorder, in partial remission, most recent episode hypomanic F31.71 [facility] [address] [id number] [address] [place] [phone] October, [facility] [address] [facility] [id number] [address] [place] [id number] October, [facility] [address] [id number] [address] [place] [address] Oct, Bipolar disorder, in partial remission, most recent episode hypomanic F31.71 ; Attention deficit hyperactivity disorder (ADHD), combined type F90.2 ; Anxiety disorder, unspecified type F41.9 and Encounter for drug screening Z02.83 [facility] [address] [id number] [address] [place] [id number] Oct, Bipolar disorder, in partial remission, most recent episode hypomanic F31.71 [facility] [address] [id number] [address] [place] [phone] Oct, Bipolar disorder, in partial remission, most recent episode hypomanic F31.71 [facility] [address] [id number] [address] [place] [phone] Aug, Bipolar disorder, in partial remission, most recent episode hypomanic F31.71 [facility] [address] [facility] [id number] [address] [place] [id number] Aug, Bipolar disorder, in partial remission, most recent episode hypomanic F31.71 [facility] [address] [facility] [id number] [address] [place] [address] Aug, Bipolar disorder, in partial remission, most recent episode hypomanic F31.71 [facility] [address] [id number] [address] [place] [address] Jul, Bipolar disorder, in partial remission, most recent episode hypomanic F31.71 ; Attention deficit hyperactivity disorder (ADHD), combined type F90.2 and Anxiety disorder, unspecified type F41.9 [facility] [address] [facility] [id number] [address] [place] [phone] Jul, Bipolar disorder, in partial remission, most recent episode hypomanic F31.71 [facility] [address] [facility] [id number] [address] [place] [phone] Jun, Bipolar disorder, in partial remission, most recent episode hypomanic F31.71 [facility] [address] [facility] [id number] [address] [place] [phone] May, Bipolar disorder, in partial remission, most recent episode hypomanic F31.71 [facility] [address] [facility] [id number] [address] [place] [phone] May, Bipolar disorder, in partial remission, most recent episode hypomanic F31.71 [facility] [address] [facility] [id number] [address] [place] [phone] Apr, [facility] [address] [facility] [id number] [address] [place] [phone] Apr, Bipolar disorder, in partial remission, most recent episode hypomanic F31.71 ; Attention deficit hyperactivity disorder (ADHD), combined type F90.2 ; Anxiety disorder, unspecified type F41.9 and Cannabis abuse F12.10 [facility] [address] [id number] [address] [place] [phone] Apr, Attention deficit hyperactiv ity disorder (ADHD), combined type F90.2 [facility] [address] [id number] [address] [place] [address], [place] [address] Mar, Attention deficit hyperactiv ity disorder (ADHD), combined type F90.2 [facility] [address] [id number] [address] [place] [address], [place] [address] 14 Mar, 2017 Anxiety disorder, unspecifie d type F41.9 [facility] [address] [id number] [address] [place] [address], [place] [address] Jan, Attention deficit hyperactiv ity disorder (ADHD), combined type F90.2 [facility] [address] [id number] [address] [place] [phone] Jan, Anxiety disorder, unspecifie d type F41.9 [facility] [address] [id number] [address] [place] [address], [place] [address] Jan, Other chronic pain G89.29 ; Chronic hepatitis C without hepatic coma B18.2 and Bipolar 1 disorder F31.9 [facility] [address] [id number] [address] [place] [address], [place] [address] Dec, Attention deficit hyperactiv ity disorder (ADHD), combined type F90.2 [facility] [address] [id number] [address] [place] [address], [place] [address] Dec, Bipolar disorder, in partial remission, most recent episode hypomanic F31.71 ; Attention deficit hyperactivity disorder (ADHD), combined type F90.2 and Anxiety disorder, unspecified type F41.9 [facility] [address] [id number] [address] [place] [address], [place] [address] Dec, Bipolar disorder, in partial remission, most recent episode hypomanic F31.71 ; Attention deficit hyperactivity disorder (ADHD), combined type F90.2 and Anxiety disorder, unspecified type F41.9 [facility] [address] [id number] [address] [place] [phone] Dec, Bipolar 1 disorder F31.9 and Attention deficit R41.840 [facility] [address] [facility] [id number] [address] [place] [phone] Oct, Other chronic pain G89.29 ; Alopecia L65.9 and Screening, lipid Z13.220 [facility] [address] [id number] [address] [place] [phone] Oct, [facility] [address] [id number] [address] [place] [phone] Aug, [facility] [address] [id number] [address] [place] [phone] Aug, Eustachian tube dysfunction, right H69.81 ; Vertigo R42 and Other chronic pain G89.29 [facility] [address] [id number] [address] [place] [phone] Aug, [facility] [address] [id number] [address] [place] [phone] Jun, [facility] [address] [id number] [address] [place] [phone] Jun, Low back pain M54.5 and Othe r chronic pain G89.29 [facility] [address] [facility] [id number] [address] [place] [phone] Jun, [facility] [address] [id number] [address] [place] [phone] May, [facility] [address] [id number] [address] [place] [phone] Jan, [facility] [address] [facility] [id number] [address] [place] [phone] Dec, [facility] [address] [place] [id number] [address] [place] [phone] Dec, [facility] [address] [facility] [id number] [address] [place] [phone] Jun, [facility] [address] [place] [id number] [address] [place] [id number] Apr, Eustachian tube dysfunction, unspecified laterality H69.80 ; Hot flashes N95.1 and Encounter for immunization Z23 [facility] [address] [facility] [id number] [address] [place] [phone] Jan, [facility] [address] [facility] [id number] [address] [place] [phone] Jan, [facility] [address] [place] [id number] [place] [phone] Jan, [facility] [address] [place] [id number] [place] [address] Jan, [facility] [address] [phone] Jan, Encounter to establish care V65.8 ; Bipolar 1 disorder 296.7 ; Abdominal pain 789.00 ; Constipation 564.00 ; Hard of hearing 389.9 and Drug abuse 305.90 [facility] [address] [place] [id number] [address] [place] [phone] Dec, [facility] [address] [id number] [address] [place] [id number] October, [facility] [address] [id number] [address] [place] [phone] October, [facility] [address] [id number] [address] [place] [phone] Oct, [facility] [address] [id number] [address] [place] [phone] Oct, [facility] [address] [id number] [address] [place] [phone] Oct, [facility] [address] [id number] [facility] [address] Aug, 2014 [facility] [address] [id number] [address] [place] [address], [place] [address] Aug, 2014 [facility] [address] [id number] [address] [place] [address], [place] [address] Aug, 2014 [facility] [address] [id number] [address] [place] [address], [place] [address] Aug, 2014 [facility] [address] [id number] [address] [place] [address], [place] [address] Aug, 2014 [facility] [address] [id number] [address] [place] [address], [place] [address] Aug, 2014 [facility] [address] [id number] [address] [place] [address], [place] [address] Aug, 2014 [facility] [address] [id number] [address] [place] [id number] Aug, 2014 [facility] [address] [id number] [address] [place] [address], [place] [address] Aug, 2014 [facility] [address] [id number] [address] [place] [address], [place] [address] Aug, 2014 [facility] [address] [id number] [address] [place] [address], [place] [address] Aug, 2014 [facility] [address] [id number] [address] [place] [phone] Aug, 2014 [facility] [address] [id number] [address] [place] [address], [place] [address] Aug, 2014 [facility] [address] [id number] [address] [place] [address], [place] [address] Aug, 2014 [facility] [address] [id number] [address] [place] [address], [place] [address] Aug, 2014 [facility] [address] [id number] [address] [place] [address], [place] [address] Jul, [facility] [address] [id number] [address] [place] [address], [place] [address] Jul, [facility] [address] [id number] [address] [place] [address], [place] [address] Jul, [facility] [address] [id number] [address] [place] [address], [place] [address] Jul, [facility] [address] [id number] [address] [place] [address], [place] [address] Jul, [facility] [address] [id number] [address] [place] [address], [place] [address] Jul, [facility] [address] [id number] [address] [place] [address], [place] [address] Jul, [facility] [address] [id number] [address] [place] [address], [place] [address] Jul, [facility] [address] [id number] [address] [place] [address], [place] [address] Jun, [facility] [address] [id number] [address] [place] [address], [place] [address] Jun, [facility] [address] [id number] [address] [place] [address], [place] [address] Jun, [facility] [address] [id number] [address] [place] [address], [place] [address] 29 Jun, 2014 [facility] [address] [id number] [address] [place] [address], [place] [address] 18 Jun, 2014 [facility] [address] [id number] [address] [place] [address], [place] [address] 15 Jun, 2014 [facility] [address] [id number] [address] [place] [address], [place] [address] 15 Jun, 2014 [facility] [address] [id number] [address] [place] [address], [place] [address] Jun, [facility] [address] [id number] [address] [place] [address], [place] [address] Jun, [facility] [address] [id number] [address] [place] [address], [place] [address] Jun, [facility] [address] [id number] [address] [place] [address], [place] [address] Jun, [facility] [address] [id number] [address] [place] [address], [place] [address] May, [facility] [address] [id number] [address] [place] [address], [place] [address] May, [facility] [address] [id number] [address] [place] [address], [place] [address] May, [facility] [address] [id number] [address] [place] [address], [place] [address] May, [facility] [address] [id number] [address] [place] [address], [place] [address] May, [facility] [address] [id number] [address] [place] [address], [place] [address] May, [facility] [address] [id number] [address] [place] [address], [place] [address] May, [facility] [address] [id number] [address] [place] [address], [place] [address] Apr, [facility] [address] [id number] [address] [place] [address], [place] [address] Apr, [facility] [address] [id number] [address] [place] [address], [place] [address] Apr, [facility] [address] [id number] [address] [place] [address], [place] [address] Apr, [facility] [address] [id number] [address] [place] [address], [place] [address] Apr, [facility] [address] [id number] [address] [place] [address], [place] [address] Apr, [facility] [address] [id number] [address] [place] [address], [place] [address] Mar, [facility] [address] [id number] [address] [place] [address], [place] [address] Mar, [facility] [address] [id number] [address] [place] [address], [place] [address] Mar, [facility] [address] [id number] [address] [place] [address], [place] [address] Mar, [facility] [address] [id number] [address] [place] [address], [place] [address] Mar, [facility] [address] [id number] [address] [place] [address], [place] [address] Mar, [facility] [address] [id number] [address] [place] [address], [place] [address] Jan, [facility] [address] [id number] [address] [place] [address], [place] [address] Jan, [facility] [address] [id number] [address] [place] [address], [place] [address] Jan, [facility] [address] [id number] [address] [place] [address], [place] [address] Jan, [facility] [address] [id number] [address] [place] [address], [place] [id number] Dec, [facility] [address] [id number] [address] [place] [address], [place] [id number] Dec, [facility] [address] [id number] [address] [place] [address], [place] [id number] Dec, [facility] [address] [id number] [address] [place] [address], [place] [id number] Dec, [facility] [address] [id number] [address] [place] [address], [place] [address] Dec, [facility] [address] [id number] [address] [place] [address], [place] [id number] Dec, [facility] [address] [id number] [address] [place] [address], [place] [address] Dec, [facility] [address] [id number] [address] [place] [address], [place] [id number] Dec, [facility] [address] [id number] [address] [place] [address], [place] [id number] Dec, [facility] [address] [id number] [address] [place] [address], [place] [id number] Dec, [facility] [address] [id number] [address] [place] [address], [place] [id number] Dec, [facility] [address] [id number] [address] [place] [address], [place] [id number] Dec, [facility] [address] [id number] [address] [place] [address], [place] [id number] October, [facility] [address] [id number] [address] [place] [address], [place] [id number] October, [facility] [address] [id number] [address] [place] [address], [place] [id number] October, [facility] [address] [id number] [address] [place] [address], [place] [id number] October, [facility] [address] [id number] [address] [place] [address], [place] [id number] October, [facility] [address] [id number] [address] [place] [address], [place] [id number] October, [facility] [address] [id number] [address] [place] [address], [place] [id number] Oct, [facility] [address] [id number] [address] [place] [address], [place] [id number] Oct, [facility] [address] [id number] [address] [place] [address], [place] [id number] Oct, [facility] [address] [id number] [facility] [place] [id number] Oct, [facility] [address] [id number] [address] [place] [address], [place] [id number] Oct, [facility] [address] [id number] [address] [place] [address], [place] [id number] Oct, [facility] [address] [id number] [address] [place] [address], [place] [address] Oct, [facility] [address] [id number] [address] [place] [address], [place] [address] Oct, [facility] [address] [id number] [address] [place] [address], [place] [address] Oct, [facility] [address] [id number] [address] [place] [address], [place] [address] Oct, [facility] [address] [id number] [address] [place] [address], [place] [address] Oct, [facility] [address] [id number] [address] [place] [address], [place] [address] Oct, [facility] [address] [id number] [address] [place] [address], [place] [address] Aug, [facility] [address] [id number] [address] [place] [address], [place] [address] Aug, [facility] [address] [id number] [address] [place] [address], [place] [address] Aug, [facility] [address] [id number] [address] [place] [address], [place] [address] Aug, [facility] [address] [id number] [address] [place] [address], [place] [address] Aug, [facility] [address] [id number] [address] [place] [address], [place] [address] Aug, [facility] [address] [id number] [address] [place] [address], [place] [address] 04 Aug, 2013 [facility] [address] [id number] [address] [place] [address], [place] [address] Aug, [facility] [address] [id number] [address] [place] [address], [place] [address] Aug, [facility] [address] [id number] [address] [place] [address], [place] [address] 24 Aug, 2013 [facility] [address] [id number] [address] [place] [address], [place] [address] 24 Aug, 2013 [facility] [address] [id number] [address] [place] [address], [place] [address] Aug, [facility] [address] [id number] [address] [place] [address], [place] [address] Aug, [facility] [address] [id number] [address] [place] [address], [place] [address] 20 Aug, 2013 [facility] [address] [id number] [address] [place] [address], [place] [address] 14 Aug, 2013 [facility] [address] [id number] [address] [place] [address], [place] [address] 14 Aug, 2013 [facility] [address] [id number] [address] [place] [address], [place] [address] 14 Aug, 2013 [facility] [address] [id number] [address] [place] [address], [place] [address] 14 Aug, 2013 [facility] [address] [id number] [address] [place] [address], [place] [address] 07 Aug, 2013 [facility] [address] [id number] [address] [place] [address], [place] [address] 07 Aug, 2013 [facility] [address] [id number] [address] [place] [address], [place] [address] 06 Aug, 2013 [facility] [address] [id number] [address] [place] [address], [place] [address] Aug, [facility] [address] [id number] [facility] [address] Aug, [facility] [address] [id number] [address] [place] [address], [place] [address] Aug, [facility] [address] [id number] [address] [place] [address], [place] [address] Aug, [facility] [address] [id number] [address] [place] [address], [place] [address] Jul, [facility] [address] [id number] [address] [place] [address], [place] [address] Jul, [facility] [address] [id number] [address] [place] [address], [place] [address] Jul, [facility] [address] [id number] [address] [place] [address], [place] [address] Jul, [facility] [address] [id number] [address] [place] [address], [place] [address] Jul, [facility] [address] [id number] [address] [place] [address], [place] [address] Jul, [facility] [address] [id number] [address] [place] [address], [place] [address] Jul, [facility] [address] [id number] [address] [place] [address], [place] [address] Jul, [facility] [address] [id number] [address] [place] [address], [place] [address] Jul, [facility] [address] [id number] [address] [place] [address], [place] [address] Jul, [facility] [address] [id number] [address] [place] [address], [place] [address] Jul, [facility] [address] [id number] [address] [place] [address], [place] [address] Jul, [facility] [address] [id number] [address] [place] [address], [place] [address] 10 Jul, 2013 [facility] [address] [id number] [address] [place] [address], [place] [address] Jul, [facility] [address] [id number] [address] [place] [address], [place] [address] Jul, [facility] [address] [id number] [address] [place] [address], [place] [address] Jul, [facility] [address] [id number] [address] [place] [address], [place] [address] Jul, [facility] [address] [id number] [address] [place] [address], [place] [address] Jul, [facility] [address] [id number] [address] [place] [address], [place] [address] Jul, [facility] [address] [id number] [address] [place] [address], [place] [address] Jul, [facility] [address] [id number] [address] [place] [address], [place] [address] Jun, [facility] [address] [id number] [address] [place] [address], [place] [address] Jun, [facility] [address] [id number] [address] [place] [address], [place] [address] Jun, [facility] [address] [id number] [address] [place] [address], [place] [address] Jun, [facility] [address] [id number] [address] [place] [address], [place] [address] Jun, [facility] [address] [id number] [address] [place] [address], [place] [address] Jun, [facility] [address] [id number] [address] [place] [address], [place] [address] Jun, [facility] [address] [id number] [address] [place] [address], [place] [address] Jun, [facility] [address] [id number] [address] [place] [address], [place] [address] Jun, [facility] [address] [id number] [address] [place] [address], [place] [address] Jun, [facility] [address] [id number] [address] [place] [address], [place] [address] Jun, [facility] [address] [id number] [address] [place] [address], [place] [address] Jun, [facility] [address] [id number] [address] [place] [address], [place] [address] Jun, [facility] [address] [id number] [address] [place] [address], [place] [address] Jun, [facility] [address] [id number] [address] [place] [address], [place] [address] Jun, [facility] [address] [id number] [address] [place] [address], [place] [address] Jun, [facility] [address] [id number] [address] [place] [address], [place] [address] Jun, [facility] [address] [id number] [address] [place] [address], [place] [address] Jun, [facility] [address] [id number] [address] [place] [address], [place] [address] 17 Jun, 2013 [facility] [address] [id number] [address] [place] [address], [place] [address] 13 Jun, 2013 [facility] [address] [id number] [address] [place] [address], [place] [address] Jun, [facility] [address] [id number] [address] [place] [address], [place] [address] Jun, [facility] [address] [id number] [address] [place] [address], [place] [address] 09 Jun, 2013 [facility] [address] [id number] [address] [place] [id number] 05 Jun, 2013 [facility] [address] [id number] [address] [place] [address], [place] [address] Jun, [facility] [address] [id number] [address] [place] [id number] Jun, [facility] [address] [id number] [address] [place] [id number] Jun, [facility] [address] [id number] [address] [place] [id number] May, [facility] [address] [id number] [address] [place] [phone] May, [facility] [address] [id number] [address] [place] [phone] May, [facility] [address] [id number] [address] [place] [id number] May, [facility] [address] [id number] [address] [place] [phone] May, [facility] [address] [id number] [address] [place] [phone] May, [facility] [address] [id number] [address] [place] [id number] Apr, [facility] [address] [id number] [address] [place] [phone] 30 Apr, 2013 [facility] [address] [id number] [address] [place] [id number] 30 Apr, 2013 [facility] [address] [id number] [address] [place] [id number] 30 Apr, 2013 [facility] [address] [id number] [address] [place] [phone] Apr, [facility] [address] [id number] [address] [place] [id number] 15 Apr, 2013 [facility] [address] [id number] [address] [place] [address], [place] [address] 15 Apr, 2013 [facility] [address] [id number] [address] [place] [address], [place] [address] 01 Apr, 2013 [facility] [address] [id number] [address] [place] [address], [place] [address] 26 Mar, 2012 [facility] [address] [id number] [address] [place] [address], [place] [address] 24 Mar, 2012 [facility] [address] [id number] [address] [place] [address], [place] [address] 17 Mar, 2012 [facility] [address] [id number] [address] [place] [address], [place] [address] 17 Mar, 2012 [facility] [address] [id number] [address] [place] [address], [place] [address] 11 Mar, 2013 [facility] [address] [id number] [address] [place] [address], [place] [address] 10 Mar, 2013 [facility] [address] [id number] [address] [place] [address], [place] [address] 05 Mar, 2013 [facility] [address] [id number] [address] [place] [address], [place] [address] 04 Mar, 2013 [facility] [address] [id number] [address] [place] [address], [place] [address] 20 Jan, 2013 [facility] [address] [id number] [address] [place] [address], [place] [address] Jan, [facility] [address] [id number] [address] [place] [address], [place] [address] 14 Jan, 2013 [facility] [address] [id number] [address] [place] [address], [place] [address] Jan, [facility] [address] [id number] [address] [place] [address], [place] [address] Jan, [facility] [address] [id number] [address] [place] [address], [place] [address] 05 Jan, 2013 [facility] [address] [id number] [address] [place] [address], [place] [address] 31 Dec, 2012 [facility] [address] [id number] [address] [place] [address], [place] [address] 24 Dec, 2012 [facility] [address] [id number] [address] [place] [address], [place] [address] Dec, [facility] [address] [id number] [address] [place] [address], [place] [address] Dec, [facility] [address] [id number] [address] [place] [address], [place] [address] 18 Dec, 2012 [facility] [address] [id number] [address] [place] [address], [place] [address] 17 Dec, 2012 [facility] [address] [id number] [address] [place] [address], [place] [address] 16 Dec, 2012 [facility] [address] [id number] [address] [place] [address], [place] [address] 16 Dec, 2012 [facility] [address] [id number] [address] [place] [address], [place] [address] 15 Dec, 2012 [facility] [address] [id number] [address] [place] [address], [place] [address] Dec, [facility] [address] [id number] [address] [place] [address], [place] [address] 28 Dec, 2012 [facility] [address] [id number] [address] [place] [address], [place] [address] Dec, [facility] [address] [id number] [address] [place] [address], [place] [address] Dec, [facility] [address] [id number] [address] [place] [address], [place] [address] 17 Dec, 2012 [facility] [address] [id number] [address] [place] [address], [place] [address] 13 Dec, 2012 [facility] [address] [id number] [address] [place] [address], [place] [address] Dec, [facility] [address] [id number] [address] [place] [address], [place] [address] October, [facility] [address] [id number] [address] [place] [address], [place] [address] October, [facility] [address] [id number] [address] [place] [address], [place] [address] October, [facility] [address] [id number] [address] [place] [address], [place] [address] October, [facility] [address] [id number] [address] [place] [address], [place] [address] October, [facility] [address] [id number] [address] [place] [address], [place] [address] October, [facility] [address] [id number] [address] [place] [address], [place] [address] October, [facility] [address] [id number] [address] [place] [address], [place] [address] Oct, [facility] [address] [id number] [address] [place] [address], [place] [address] Oct, [facility] [address] [id number] [address] [place] [address], [place] [address] Oct, [facility] [address] [id number] [address] [place] [address], [place] [address] Oct, [facility] [address] [id number] [address] [place] [address], [place] [address] Oct, [facility] [address] [id number] [address] [place] [address], [place] [address] 18 Oct, 2012 [facility] [address] [id number] [address] [place] [address], [place] [address] 17 Oct, 2012 [facility] [address] [id number] [address] [place] [address], [place] [address] 15 Oct, 2012 [facility] [address] [id number] [address] [place] [address], [place] [address] Oct, [facility] [address] [id number] [address] [place] [address], [place] [address] Oct, [facility] [address] [id number] [address] [place] [address], [place] [address] Oct, [facility] [address] [id number] [address] [place] [address], [place] [address] Oct, [facility] [address] [id number] [address] [place] [address], [place] [address] Aug, [facility] [address] [id number] [address] [place] [address], [place] [address] Aug, [facility] [address] [id number] [address] [place] [address], [place] [address] Aug, [facility] [address] [id number] [address] [place] [address], [place] [address] Aug, [facility] [address] [id number] [address] [place] [address], [place] [address] Aug, [facility] [address] [id number] [address] [place] [address], [place] [address] Aug, [facility] [address] [id number] [address] [place] [address], [place] [address] Aug, [facility] [address] [id number] [address] [place] [address], [place] [address] 14 Aug, 2012 [facility] [address] [id number] [address] [place] [address], [place] [address] Aug, [facility] [address] [id number] [address] [place] [address], [place] [address] Aug, [facility] [address] [id number] [address] [place] [address], [place] [address] Jul, [facility] [address] [id number] [address] [place] [id number] 15 Jul, 2012 [facility] [address] [id number] [address] [place] [address], [place] [address] 08 Jul, 2012 [facility] [address] [id number] [address] [place] [address], [place] [address] 20 Jun, 2012 [facility] [address] [id number] [address] [place] [address], [place] [address] 18 Jun, 2012 [facility] [address] [id number] [address] [place] [address], [place] [address] 18 Jun, 2012 [facility] [address] [id number] [address] [place] [address], [place] [address] 18 Jun, 2012 [facility] [address] [id number] [address] [place] [address], [place] [address] 18 Jun, 2012 [facility] [address] [id number] [address] [place] [address], [place] [address] 14 Jun, 2012 [facility] [address] [id number] [address] [place] [address], [place] [id number] 14 Jun, 2012 [facility] [address] [id number] [address] [place] [address], [place] [id number] 13 Jun, 2012 [facility] [address] [id number] [address] [place] [address], [place] [id number] 13 Jun, 2012 [facility] [address] [id number] [address] [place] [address], [place] [id number] 11 Jun, 2012 [facility] [address] [id number] [address] [place] [address], [place] [id number] 11 Jun, 2012 [facility] [address] [id number] [address] [place] [address], [place] [id number] 11 Jun, 2012 [facility] [address] [id number] [address] [place] [address], [place] [id number] 11 Jun, 2012 [facility] [address] [id number] [address] [place] [address], [place] [id number] 07 Jun, 2012 [facility] [address] [id number] [address] [place] [address], [place] [address] Jun, [facility] [address] [id number] [address] [place] [address], [place] [phone] Jun, [facility] [address] [id number] [address] [place] [address], [place] [address] Jun, [facility] [address] [id number] [address] [place] [address], [place] [address] Jun, [facility] [address] [id number] [address] [place] [address], [place] [address] Jun, [facility] [address] [id number] [address] [place] [address], [place] [address] Jun, [facility] [address] [id number] [address] [place] [address], [place] [address] Jun, [facility] [address] [id number] [address] [place] [address], [place] [address] Jun, [facility] [address] [id number] [address] [place] [address], [place] [address] Jun, [facility] [address] [id number] [address] [place] [address], [place] [address] May, [facility] [address] [id number] [address] [place] [address], [place] [address] May, [facility] [address] [id number] [address] [place] [address], [place] [phone] May, [facility] [address] [id number] [address] [place] [address], [place] [address] May, [facility] [address] [id number] [address] [place] [address], [place] [address] May, [facility] [address] [id number] [address] [place] [address], [place] [address] May, [facility] [address] [id number] [address] [place] [address] [address] May, [facility] [address] [id number] [address] [place] [address], [place] [address] May, [facility] [address] [id number] [address] [place] [address], [place] [address] Apr, [facility] [address] [id number] [address] [place] [address], [place] [address] Apr, [facility] [address] [id number] [address] [place] [address], [place] [address] Apr, [facility] [address] [id number] [address] [place] [address], [place] [address] Apr, [facility] [address] [id number] [address] [place] [address], [place] [address] Apr, [facility] [address] [id number] [address] [place] [address], [place] [address] Apr, [facility] [address] [id number] [address] [place] [address], [place] [address] Apr, [facility] [address] [id number] [address] [place] [address], [place] [address] Apr, [facility] [address] [id number] [address] [place] [id number] Apr, [facility] [address] [id number] [address] [place] [id number] Apr, [facility] [address] [id number] [address] [place] [id number] Apr, [facility] [address] [id number] [address] [place] [address], [place] [address] Apr, [facility] [address] [id number] [address] [place] [id number] Mar, [facility] [address] [id number] [address] [place] [id number] 18 Mar, 2012 [facility] [address] [id number] [address] [place] [address], [place] [address] 12 Mar, 2012 [facility] [address] [id number] [address] [place] [address], [place] [address] Mar, [facility] [address] [id number] [address] [place] [id number] Mar, [facility] [address] [id number] [address] [place] [id number] Mar, [facility] [address] [id number] [address] [place] [address], [place] [address] Mar, [facility] [address] [id number] [address] [place] [address], [place] [address] Jan, [facility] [address] [id number] [address] [place] [address], [place] [address] Jan, [facility] [address] [id number] [address] [place] [id number] Jan, [facility] [address] [id number] [address] [place] [id number] Jan, [facility] [address] [id number] [address] [place] [address], [place] [address] Jan, [facility] [address] [id number] [address] [place] [address], [place] [address] Jan, [facility] [address] [id number] [address] [place] [address], [place] [id number] Jan, [facility] [address] [id number] [address] [place] [id number] Jan, [facility] [address] [id number] [address] [place] [address], [place] [id number] Jan, [facility] [address] [id number] [address] [place] [address], [place] [phone] Jan, [facility] [address] [id number] [address] [place] [address], [place] [id number] Jan, [facility] [address] [id number] [facility] [place] [id number] 28 Jan, 2012 [facility] [address] [id number] [facility] [place] [id number] 27 Jan, 2012 [facility] [address] [id number] [facility] [place] [id number] 26 Jan, 2012 [facility] [address] [id number] [address] [place] [address], [place] [id number] 26 Jan, 2012 [facility] [address] [id number] [address] [place] [address], [place] [id number] 20 Jan, 2012 [facility] [address] [id number] [address] [place] [address], [place] [phone] 19 Jan, 2012 [facility] [address] [id number] [address] [place] [address], [place] [id number] 18 Jan, 2012 [facility] [address] [id number] [address] [place] [address], [place] [id number] 17 Jan, 2012 [facility] [address] [id number] [address] [place] [address], [place] [phone] 16 Jan, 2012 [facility] [address] [id number] [address] [place] [address], [place] [phone] Dec, [facility] [address] [id number] [address] [place] [address], [place] [id number] Dec, [facility] [address] [id number] [address] [place] [address], [place] [phone] Dec, [facility] [address] [id number] [address] [place] [address], [place] [id number] Dec, [facility] [address] [id number] [address] [place] [address], [place] [address] Dec, [facility] [address] [id number] [address] [place] [address], [place] [id number] Dec, [facility] [address] [id number] [address] [place] [address] [address] Dec, [facility] [address] [id number] [address] [place] [address], [place] [address] Dec, [facility] [address] [id number] [address] [place] [address], [place] [id number] Dec, [facility] [address] [id number] [address] [place] [address], [place] [phone] Dec, [facility] [address] [id number] [address] [place] [address], [place] [address] October, [facility] [address] [id number] [address] [place] [address], [place] [address] October, [facility] [address] [id number] [address] [place] [address], [place] [id number] October, [facility] [address] [id number] [address] [place] [address], [place] [id number] October, [facility] [address] [id number] [address] [place] [address], [place] [phone] October, [facility] [address] [id number] [address] [place] [address], [place] [id number] October, [facility] [address] [id number] [address] [place] [address], [place] [phone] Oct, [facility] [address] [id number] [address] [place] [address], [place] [address] Oct, [facility] [address] [id number] [address] [place] [address], [place] [phone] Oct, [facility] [address] [id number] [address] [place] [address], [place] [phone] Oct, [facility] [address] [id number] [address] [place] [address], [place] [address] Oct, [facility] [address] [id number] [address] [place] [address], [place] [address] Oct, [facility] [address] [id number] [address] [place] [address], [place] [phone] 02 Oct, 2011 [facility] [address] [id number] [address] [place] [address], [place] [address] 29 Sep, 2011 [facility] [address] [id number] [address] [place] [address], [place] [id number] 29 Sep, 2011 [facility] [address] [id number] [address] [place] [address], [place] [address] 19 Sep, 2011 [facility] [address] [id number] [address] [place] [address], [place] [address] 13 Sep, 2011 [facility] [address] [id number] [address] [place] [address], [place] [id number] 05 Sep, 2011 [facility] [address] [id number] [address] [place] [address], [place] [id number] 05 Sep, 2011 [facility] [address] [id number] [address] [place] [address], [place] [phone] 27 Aug, 2011 [facility] [address] [id number] [address] [place] [address], [place] [id number] 20 Aug, 2011 [facility] [address] [id number] [address] [place] [address], [place] [address] 08 Aug, 2011 [facility] [address] [id number] [address] [place] [address], [place] [id number] 31 Jul, 2011 [facility] [address] [id number] [address] [place] [address], [place] [id number] Jul, [facility] [address] [id number] [address] [place] [address], [place] [address] Jul, [facility] [address] [id number] [address] [place] [address], [place] [id number] 10 Jul, 2011 [facility] [address] [id number] [address] [place] [address], [place] [id number] 28 Jun, 2011 [facility] [address] [id number] [address] [place] [address], [place] [address] Jun, [facility] [address] [id number] [address] [place] [address], [place] [address] May, [facility] [address] [id number] [address] [place] [address], [place] [address] May, [facility] [address] [id number] [address] [place] [address], [place] [address] May, [facility] [address] [id number] [address] [place] [address], [place] [address] May, [facility] [address] [id number] [address] [place] [address], [place] [phone] May, [facility] [address] [id number] [address] [place] [address], [place] [address] Apr, [facility] [address] [id number] [address] [place] [address], [place] [address] Apr, [facility] [address] [id number] [address] [place] [phone] Apr, [facility] [address] [id number] [address] [place] [address], [place] [address] Jan, [facility] [address] [id number] [address] [place] [id number] Dec, [facility] [address] [id number] [address] [place] [phone] October, [facility] [address] [id number] [address] [place] [phone] Jun, [facility] [address] [id number] [address] [place] [address], [place] [id number] 23 Apr, 2009 [facility] [address] [id number] [address] [place] [id number] 13 Apr, 2009 [facility] [address] [id number] [address] [place] [phone] 13 Apr, 2009 [facility] [address] [id number] [address] [place] [phone] Jun, IMMUNIZATIONS No Known Immunizations SOCIAL HISTORY Never Assessed REASON FOR VISIT [facility] [place] PLAN OF CARE VITAL SIGNS MEDICATIONS Medication Instructions Dosage Frequency Start Date End Date Duration S wilyus Methylphenidate 20 mg 1 Tablet by Oral route 3 t imes per day AM, 3 PM and HS Aug, Active Seroquel 200 mg 1 Tablet by Oral rou te 1 time per day at bedtime (Take with 800mg) Aug, Active PredniSONE 10 mg 1 Tablet 2 times per day for 5 days T arianna in am and noon. Jul, Active Seroquel 400 mg 2 tablet by Oral rou te 1 time per day at bedtime (Take with 200mg) Jul, Active Doxycycline Hyclate 100 mg 1 tablet by Oral rout e 2 times per day for 10 days Apr, Active HydrOXYzine HCl 50 mg 1 Tablet by Oral route 3 times per day Apr, Active Gabapentin 400 mg 3 Capsule 3 times per day Jun, Active RESULTS No Results PROCEDURES No Known procedures INSTRUCTIONS MEDICATIONS ADMINISTERED No Known Medications MEDICAL (GENERAL) HISTORY Type Description Date Medical History Psychiatric disorder Medical History Hard of hearing Surgical History Neofibrous tumor Surgical History back injection Surgical History SCS inserted 02/22/16 Hospitalization History Intestinal blockage Hospitalization History past psychiatric hospitalizations x2 Hospitalization History SCS 02/01-
--- OUTSIDE RECORDS SUMMARY | 2020-01-25 12:47 | XMS REPORT ---
Author Author Ana Mayer Doctor Organization [facility] Address Unknown Phone Unavailable Care Team Providers Care Psychologist Personnel Name Role Phone Migration, Doctor Unavailable Unavailable PROBLEMS Type Condition ICD9-CM Code [id number] Code Onset Dates Condition S tatus SNOMED Code Problem Attention deficit R41.840 Active 76 745245 Problem Chronic hepatitis C without hepatic coma B18.2 Active 565499882 Problem Cannabis abuse F12.10 Active 36306 009 Problem Bipolar disorder, in partial remission, most rec ent episode hypomanic F31.71 Active 195484931 Problem Attention deficit hyperactivity disorder (ADHD), combi luciano type F90.2 Active 82941130 Problem Bipolar 1 disorder F31.9 Active 3 83706835 Problem H/O laminectomy Z98.89 Active 1616 74368 Problem Other chronic pain G89.29 Active 8 5977430 Problem Anxiety disorder, unspecified type F41.9 Active [id number] ALLERGIES No Information ENCOUNTERS Encounter Location Date Diagnosis [facility] [address] [facility] [id number] [address] [place] [phone] October, [facility] [address] [facility] [id number] [address] [place] [address] October, [facility] [address] [facility] [id number] [address] [place] [address] October, Other chronic pain G89.29 an d Chronic hepatitis C without hepatic coma B18.2 [facility] [address] [facility] [id number] [address] [place] [address] Aug, Bipolar disorder, in partial remission, most recent episode hypomanic F31.71 ; Attention deficit hyperactivity disorder (ADHD), combined type F90.2 and Anxiety disorder, unspecified type F41.9 [facility] [address] [facility] [id number] [address] [place] [address] Aug, [facility] [address] [id number] [address] [place] [address] Aug, Bipolar disorder, in partial remission, most recent episode hypomanic F31.71 [facility] [address] [id number] [address] [place] [address] Aug, [facility] [address] [facility] [id number] [address] [place] [address] Aug, Bipolar disorder, in partial remission, most recent episode hypomanic F31.71 [facility] [address] [id number] [address] [place] [address] Aug, Bipolar disorder, in partial remission, most recent episode hypomanic F31.71 ; Attention deficit hyperactivity disorder (ADHD), combined type F90.2 and Anxiety disorder, unspecified type F41.9 [facility] [address] [facility] [id number] [address] [place] [address] Aug, Low back pain M54.5 and Pain in left wrist M25.532 [facility] [address] [id number] [address] [place] [address] Aug, [facility] [address] [id number] [address] [place] [address] Jun, [facility] [address] [id number] [address] [place] [address] Apr, Bipolar disorder, in partial remission, most recent episode hypomanic F31.71 [facility] [address] [id number] [address] [place] [address] Apr, [facility] [address] [id number] [address] [place] [address] Apr, Bipolar disorder, in partial remission, most recent episode hypomanic F31.71 ; Attention deficit hyperactivity disorder (ADHD), combined type F90.2 ; Anxiety disorder, unspecified type F41.9 and 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 [facility] [address] [facility] [id number] [address] [place] [address] Apr, Bipolar disorder, in partial remission, most recent episode hypomanic F31.71 [facility] [address] [id number] [address] [place] [address] Apr, Bipolar disorder, in partial remission, most recent episode hypomanic F31.71 [facility] [address] [id number] [address] [place] [address] Mar, [facility] [address] [id number] [address] [place] [address] Mar, Bipolar disorder, in partial remission, most recent episode hypomanic F31.71 ; Encounter for immunization Z23 and Low back pain M54.5 [facility] [address] [id number] [address] [place] [address] Mar, Bipolar disorder, in partial remission, most recent episode hypomanic F31.71 [facility] [address] [facility] [id number] [address] [place] [address] Mar, Bipolar disorder, in partial remission, most recent episode hypomanic F31.71 [facility] [address] [id number] [address] [place] [address] Jan, Bipolar disorder, in partial remission, most recent episode hypomanic F31.71 [facility] [address] [facility] [id number] [address] [place] [address] Jan, Bipolar disorder, in partial remission, most recent episode hypomanic F31.71 [facility] [address] [facility] [id number] [address] [place] [address] Dec, Bipolar disorder, in partial remission, most recent episode hypomanic F31.71 [facility] [address] [facility] [id number] [address] [place] [address] Dec, Bipolar disorder, in partial remission, most recent episode hypomanic F31.71 ; Attention deficit hyperactivity disorder (ADHD), combined type F90.2 ; Anxiety disorder, unspecified type F41.9 and 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 [facility] [address] [id number] [address] [place] [address] Dec, Bipolar disorder, in partial remission, most recent episode hypomanic F31.71 [facility] [address] [facility] [id number] [address] [place] [address] Dec, Bipolar disorder, in partial remission, most recent episode hypomanic F31.71 [facility] [address] [facility] [id number] [address] [place] [address] October, Bipolar disorder, in partial remission, most recent episode hypomanic F31.71 [facility] [address] [id number] [address] [place] [address] October, [facility] [address] [facility] [id number] [address] [place] [address] October, [facility] [address] [facility] [id number] [address] [place] [address] Oct, Bipolar disorder, in partial remission, most recent episode hypomanic F31.71 ; Attention deficit hyperactivity disorder (ADHD), combined type F90.2 ; Anxiety disorder, unspecified type F41.9 and Encounter for drug screening Z02.83 [facility] [address] [facility] [id number] [address] [place] [address] Oct, Bipolar disorder, in partial remission, most recent episode hypomanic F31.71 [facility] [address] [facility] [id number] [address] [place] [address] Oct, Bipolar disorder, in partial remission, most recent episode hypomanic F31.71 [facility] [address] [id number] [address] [place] [address] Aug, Bipolar disorder, in partial remission, most recent episode hypomanic F31.71 [facility] [address] [facility] [id number] [address] [place] [address] Aug, Bipolar disorder, in partial remission, most recent episode hypomanic F31.71 [facility] [address] [facility] [id number] [address] [place] [address] Aug, Bipolar disorder, in partial remission, most recent episode hypomanic F31.71 [facility] [address] [id number] [address] [place] [address] Jul, Bipolar disorder, in partial remission, most recent episode hypomanic F31.71 ; Attention deficit hyperactivity disorder (ADHD), combined type F90.2 and Anxiety disorder, unspecified type F41.9 [facility] [address] [facility] [id number] [address] [place] [address] Jul, Bipolar disorder, in partial remission, most recent episode hypomanic F31.71 [facility] [address] [facility] [id number] [address] [place] [address] Jun, Bipolar disorder, in partial remission, most recent episode hypomanic F31.71 [facility] [address] [id number] [address] [place] [address] May, Bipolar disorder, in partial remission, most recent episode hypomanic F31.71 [facility] [address] [id number] [address] [place] [address] May, Bipolar disorder, in partial remission, most recent episode hypomanic F31.71 [facility] [address] [facility] [id number] [address] [place] [address] Apr, [facility] [address] [id number] [address] [place] [address] Apr, Bipolar disorder, in partial remission, most recent episode hypomanic F31.71 ; Attention deficit hyperactivity disorder (ADHD), combined type F90.2 ; Anxiety disorder, unspecified type F41.9 and Cannabis abuse F12.10 [facility] [address] [id number] [address] [place] [address] Apr, Attention deficit hyperactiv ity disorder (ADHD), combined type F90.2 [facility] [address] [id number] [address] [place] [phone] Mar, Attention deficit hyperactiv ity disorder (ADHD), combined type F90.2 [facility] [address] [id number] [address] [place] [phone] 14 Mar, 2017 Anxiety disorder, unspecifie d type F41.9 [facility] [address] [id number] [address] [place] [address] Jan, Attention deficit hyperactiv ity disorder (ADHD), combined type F90.2 [facility] [address] [id number] [address] [place] [address] Jan, Anxiety disorder, unspecifie d type F41.9 [facility] [address] [id number] [address] [place] [address] Jan, Other chronic pain G89.29 ; Chronic hepatitis C without hepatic coma B18.2 and Bipolar 1 disorder F31.9 [facility] [address] [facility] [id number] [address] [place] [address] Dec, Attention deficit hyperactiv ity disorder (ADHD), combined type F90.2 [facility] [address] [id number] [address] [place] [address] Dec, Bipolar disorder, in partial remission, most recent episode hypomanic F31.71 ; Attention deficit hyperactivity disorder (ADHD), combined type F90.2 and Anxiety disorder, unspecified type F41.9 [facility] [address] [facility] [id number] [address] [place] [address] Dec, Bipolar disorder, in partial remission, most recent episode hypomanic F31.71 ; Attention deficit hyperactivity disorder (ADHD), combined type F90.2 and Anxiety disorder, unspecified type F41.9 [facility] [address] [facility] [id number] [address] [place] [address] Dec, Bipolar 1 disorder F31.9 and Attention deficit R41.840 [facility] [address] [facility] [id number] [address] [place] [address] Oct, Other chronic pain G89.29 ; Alopecia L65.9 and Screening, lipid Z13.220 [facility] [address] [id number] [address] [place] [address] Oct, [facility] [address] [id number] [address] [place] [address] Aug, [facility] [address] [id number] [address] [place] [address] Aug, Eustachian tube dysfunction, right H69.81 ; Vertigo R42 and Other chronic pain G89.29 [facility] [address] [id number] [address] [place] [address] Aug, [facility] [address] [id number] [address] [place] [address] Jun, [facility] [address] [facility] [id number] [address] [place] [address] Jun, Low back pain M54.5 and Othe r chronic pain G89.29 [facility] [address] [id number] [address] [place] [phone] Jun, [facility] [address] [id number] [address] [place] [address] May, [facility] [address] [facility] [id number] [address] [place] [address] Jan, [facility] [address] [id number] [address] [place] [address] Dec, [facility] [address] [facility] [id number] [address] [place] [address] Dec, [facility] [address] [facility] [id number] [address] [place] [address] Jun, [facility] [address] [facility] [id number] [address] [place] [address] Apr, Eustachian tube dysfunction, unspecified laterality H69.80 ; Hot flashes N95.1 and Encounter for immunization Z23 [facility] [address] [id number] [address] [place] [address] Jan, [facility] [address] [id number] [address] [place] [address] Jan, [facility] [address] [id number] [address] [place] [address] Jan, [facility] [address] [facility] [id number] [address] [place] [phone] Jan, [facility] [address] [facility] [id number] [address] [place] [address] Jan, Encounter to establish care V65.8 ; Bipolar 1 disorder 296.7 ; Abdominal pain 789.00 ; Constipation 564.00 ; Hard of hearing 389.9 and Drug abuse 305.90 [facility] [address] [id number] [address] [place] [address] Dec, [facility] [address] [id number] [address] [place] [address] October, [facility] [address] [id number] [address] [place] [phone] October, [facility] [address] [id number] [address] [place] [address] Oct, [facility] [address] [facility] [id number] [address] [place] [address] Oct, [facility] [address] [id number] [address] [place] [address] Oct, [facility] [address] [id number] [address] [place] [address] Aug, [facility] [address] [id number] [address] [place] [address] Aug, [facility] [address] [facility] [id number] [address] [place] [address] Aug, [facility] [address] [facility] [id number] [address] [place] [address] Aug, [facility] [address] [id number] [address] [place] [address], [place] [address] Aug, 2014 [facility] [address] [id number] [address] [place] [address], [place] [address] Aug, 2014 [facility] [address] [id number] [address] [place] [address], [place] [address] Aug, 2014 [facility] [address] [id number] [address] [place] [address], [place] [address] Aug, 2014 [facility] [address] [id number] [address] [place] [address], [place] [address] Aug, 2014 [facility] [address] [id number] [address] [place] [address], [place] [address] Aug, 2014 [facility] [address] [id number] [address] [place] [address], [place] [address] Aug, 2014 [facility] [address] [id number] [address] [place] [address], [place] [address] Aug, 2014 [facility] [address] [id number] [address] [place] [address], [place] [address] Aug, 2014 [facility] [address] [id number] [address] [place] [address], [place] [address] Aug, [facility] [address] [id number] [address] [place] [address], [place] [address] Aug, 2014 [facility] [address] [id number] [address] [place] [address], [place] [address] Jul, [facility] [address] [id number] [address] [place] [address], [place] [address] Jul, [facility] [address] [id number] [address] [place] [address], [place] [address] Jul, [facility] [address] [id number] [address] [place] [address], [place] [address] Jul, [facility] [address] [id number] [address] [place] [address], [place] [address] Jul, [facility] [address] [id number] [address] [place] [address], [place] [address] Jul, [facility] [address] [id number] [address] [place] [address], [place] [address] Jul, [facility] [address] [id number] [address] [place] [address], [place] [address] Jul, [facility] [address] [id number] [address] [place] [address], [place] [address] Jun, [facility] [address] [id number] [address] [place] [address], [place] [address] Jun, [facility] [address] [id number] [address] [place] [address], [place] [address] Jun, [facility] [address] [id number] [address] [place] [address], [place] [address] Jun, [facility] [address] [id number] [address] [place] [address], [place] [address] Jun, [facility] [address] [id number] [address] [place] [address], [place] [address] Jun, [facility] [address] [id number] [address] [place] [address], [place] [address] Jun, [facility] [address] [id number] [address] [place] [address], [place] [address] Jun, [facility] [address] [id number] [address] [place] [address], [place] [address] Jun, [facility] [address] [id number] [address] [place] [address], [place] [address] Jun, [facility] [address] [id number] [address] [place] [address], [place] [address] Jun, [facility] [address] [id number] [address] [place] [address], [place] [address] May, [facility] [address] [id number] [address] [place] [address], [place] [address] May, [facility] [address] [id number] [address] [place] [address], [place] [address] May, [facility] [address] [id number] [address] [place] [address], [place] [address] May, [facility] [address] [id number] [address] [place] [address], [place] [address] May, [facility] [address] [id number] [address] [place] [address], [place] [address] May, [facility] [address] [id number] [address] [place] [address], [place] [address] May, [facility] [address] [id number] [address] [place] [address], [place] [address] Apr, [facility] [address] [id number] [address] [place] [address], [place] [address] Apr, [facility] [address] [id number] [address] [place] [address], [place] [address] Apr, [facility] [address] [id number] [address] [place] [address], [place] [address] Apr, [facility] [address] [id number] [address] [place] [address], [place] [address] Apr, [facility] [address] [id number] [address] [place] [address] Apr, [facility] [address] [id number] [address] [place] [address], [place] [address] Mar, [facility] [address] [id number] [address] [place] [address], [place] [address] Mar, [facility] [address] [id number] [address] [place] [address], [place] [address] Mar, [facility] [address] [id number] [address] [place] [address], [place] [address] Mar, [facility] [address] [id number] [address] [place] [address], [place] [address] Mar, [facility] [address] [id number] [address] [place] [address], [place] [address] Mar, [facility] [address] [id number] [address] [place] [address], [place] [address] Jan, [facility] [address] [id number] [address] [place] [address], [place] [address] Jan, [facility] [address] [id number] [address] [place] [address], [place] [address] Jan, [facility] [address] [id number] [address] [place] [address], [place] [address] Jan, [facility] [address] [id number] [address] [place] [address], [place] [address] Dec, [facility] [address] [id number] [address] [place] [address], [place] [address] Dec, [facility] [address] [id number] [address] [place] [address], [place] [address] Dec, [facility] [address] [id number] [address] [place] [address], [place] [address] Dec, [facility] [address] [id number] [address] [place] [address], [place] [address] Dec, [facility] [address] [id number] [address] [place] [address], [place] [address] Dec, [facility] [address] [id number] [address] [place] [address], [place] [address] Dec, [facility] [address] [id number] [address] [place] [address], [place] [address] Dec, [facility] [address] [id number] [address] [place] [address], [place] [address] Dec, [facility] [address] [id number] [address] [place] [address], [place] [address] Dec, [facility] [address] [id number] [address] [place] [address], [place] [address] Dec, [facility] [address] [id number] [address] [place] [address], [place] [address] Dec, [facility] [address] [id number] [address] [place] [address], [place] [address] October, [facility] [address] [id number] [address] [place] [address], [place] [address] October, [facility] [address] [id number] [address] [place] [address], [place] [address] October, [facility] [address] [id number] [address] [place] [address], [place] [address] October, [facility] [address] [id number] [address] [place] [address], [place] [address] October, [facility] [address] [id number] [address] [place] [address], [place] [address] October, [facility] [address] [id number] [address] [place] [address], [place] [address] Oct, [facility] [address] [id number] [address] [place] [address], [place] [address] Oct, [facility] [address] [id number] [address] [place] [address], [place] [address] Oct, [facility] [address] [id number] [address] [place] [address], [place] [address] Oct, [facility] [address] [id number] [address] [place] [address], [place] [address] Oct, [facility] [address] [id number] [address] [place] [address], [place] [address] Oct, [facility] [address] [id number] [address] [place] [address], [place] [address] Oct, [facility] [address] [id number] [facility] [place] [address] Oct, [facility] [address] [id number] [address] [place] [address], [place] [address] Oct, [facility] [address] [id number] [address] [place] [address], [place] [address] Oct, [facility] [address] [id number] [address] [place] [address], [place] [address] Oct, [facility] [address] [id number] [address] [place] [address], [place] [address] Oct, [facility] [address] [id number] [address] [place] [address], [place] [address] Aug, [facility] [address] [id number] [address] [place] [address], [place] [address] Aug, [facility] [address] [id number] [address] [place] [address], [place] [address] Aug, [facility] [address] [id number] [address] [place] [address], [place] [address] Aug, [facility] [address] [id number] [address] [place] [address], [place] [address] Aug, [facility] [address] [id number] [address] [place] [address], [place] [address] Aug, [facility] [address] [id number] [address] [place] [address], [place] [address] Aug, [facility] [address] [id number] [address] [place] [address], [place] [address] Aug, [facility] [address] [id number] [address] [place] [address], [place] [address] Aug, [facility] [address] [id number] [address] [place] [address], [place] [address] Aug, [facility] [address] [id number] [address] [place] [address], [place] [address] 24 Aug, 2013 [facility] [address] [id number] [address] [place] [address], [place] [address] Aug, 2013 [facility] [address] [id number] [address] [place] [address], [place] [address] Aug, 2013 [facility] [address] [id number] [address] [place] [address], [place] [address] 20 Aug, 2013 [facility] [address] [id number] [address] [place] [address], [place] [address] 14 Aug, 2013 [facility] [address] [id number] [address] [place] [address], [place] [address] 14 Aug, 2013 [facility] [address] [id number] [address] [place] [address], [place] [address] 14 Aug, 2013 [facility] [address] [id number] [address] [place] [address], [place] [address] 14 Aug, 2013 [facility] [address] [id number] [address] [place] [address], [place] [address] 07 Aug, 2013 [facility] [address] [id number] [address] [place] [address], [place] [address] 07 Aug, 2013 [facility] [address] [id number] [address] [place] [address], [place] [address] 06 Aug, 2013 [facility] [address] [id number] [address] [place] [address], [place] [address] 06 Aug, 2013 [facility] [address] [id number] [address] [place] [address], [place] [address] 04 Aug, 2013 [facility] [address] [id number] [address] [place] [address], [place] [address] 04 Aug, 2013 [facility] [address] [id number] [address] [place] [address], [place] [address] 03 Aug, 2013 [facility] [address] [id number] [address] [place] [address], [place] [address] 30 Jul, 2013 [facility] [address] [id number] [address] [place] [address], [place] [address] Jul, [facility] [address] [id number] [address] [place] [address], [place] [address] Jul, [facility] [address] [id number] [address] [place] [address], [place] [address] Jul, [facility] [address] [id number] [address] [place] [address], [place] [address] Jul, [facility] [address] [id number] [address] [place] [address], [place] [address] Jul, [facility] [address] [id number] [address] [place] [address], [place] [address] Jul, [facility] [address] [id number] [address] [place] [address], [place] [address] Jul, [facility] [address] [id number] [address] [place] [address], [place] [address] Jul, [facility] [address] [id number] [address] [place] [address], [place] [address] Jul, [facility] [address] [id number] [address] [place] [address], [place] [address] Jul, [facility] [address] [id number] [address] [place] [address], [place] [address] Jul, [facility] [address] [id number] [address] [place] [address], [place] [address] Jul, [facility] [address] [id number] [address] [place] [address], [place] [address] Jul, [facility] [address] [id number] [address] [place] [address], [place] [address] Jul, [facility] [address] [id number] [address] [place] [address], [place] [address] Jul, [facility] [address] [id number] [address] [place] [address], [place] [address] Jul, [facility] [address] [id number] [address] [place] [address], [place] [address] Jul, [facility] [address] [id number] [address] [place] [address], [place] [address] Jul, [facility] [address] [id number] [address] [place] [address], [place] [address] Jul, [facility] [address] [id number] [address] [place] [address], [place] [address] Jun, [facility] [address] [id number] [address] [place] [address], [place] [address] Jun, [facility] [address] [id number] [address] [place] [address], [place] [address] Jun, [facility] [address] [id number] [address] [place] [address], [place] [address] Jun, [facility] [address] [id number] [address] [place] [address], [place] [address] Jun, [facility] [address] [id number] [address] [place] [address], [place] [address] Jun, [facility] [address] [id number] [address] [place] [address], [place] [address] Jun, [facility] [address] [id number] [address] [place] [address], [place] [address] Jun, [facility] [address] [id number] [address] [place] [address], [place] [address] Jun, [facility] [address] [id number] [address] [place] [address], [place] [address] Jun, [facility] [address] [id number] [address] [place] [address], [place] [address] Jun, [facility] [address] [id number] [address] [place] [address], [place] [address] 23 Jun, 2013 [facility] [address] [id number] [address] [place] [address], [place] [address] 23 Jun, 2013 [facility] [address] [id number] [address] [place] [address], [place] [address] Jun, [facility] [address] [id number] [address] [place] [address], [place] [address] 20 Jun, 2013 [facility] [address] [id number] [address] [place] [address], [place] [address] 18 Jun, 2013 [facility] [address] [id number] [address] [place] [address], [place] [address] 18 Jun, 2013 [facility] [address] [id number] [address] [place] [address], [place] [address] 17 Jun, 2013 [facility] [address] [id number] [address] [place] [address], [place] [address] 17 Jun, 2013 [facility] [address] [id number] [address] [place] [address], [place] [address] 13 Jun, 2013 [facility] [address] [id number] [address] [place] [address], [place] [address] 12 Jun, 2013 [facility] [address] [id number] [address] [place] [address], [place] [address] 12 Jun, 2013 [facility] [address] [id number] [address] [place] [address], [place] [address] 09 Jun, 2013 [facility] [address] [id number] [address] [place] [address], [place] [address] 05 Jun, 2013 [facility] [address] [id number] [address] [place] [address], [place] [address] 05 Jun, 2013 [facility] [address] [id number] [address] [place] [address], [place] [address] 04 Jun, 2013 [facility] [address] [id number] [address] [place] [address], [place] [address] 04 Jun, 2013 [facility] [address] [id number] [address] [place] [address], [place] [address] 17 May, 2013 [facility] [address] [id number] [address] [place] [address], [place] [address] May, [facility] [address] [id number] [address] [place] [address], [place] [address] May, [facility] [address] [id number] [address] [place] [address], [place] [address] May, [facility] [address] [id number] [address] [place] [address], [place] [address] May, [facility] [address] [id number] [address] [place] [address], [place] [address] May, [facility] [address] [id number] [address] [place] [address], [place] [address] Apr, [facility] [address] [id number] [address] [place] [address], [place] [address] Apr, [facility] [address] [id number] [address] [place] [address], [place] [address] Apr, [facility] [address] [id number] [address] [place] [address], [place] [address] Apr, [facility] [address] [id number] [address] [place] [address], [place] [address] Apr, [facility] [address] [id number] [address] [place] [address], [place] [address] 15 Apr, 2013 [facility] [address] [id number] [address] [place] [address], [place] [address] Apr, [facility] [address] [id number] [address] [place] [address], [place] [address] Apr, [facility] [address] [id number] [address] [place] [address], [place] [address] Mar, [facility] [address] [id number] [address] [place] [address], [place] [address] 24 Mar, 2013 [facility] [address] [id number] [address] [place] [address], [place] [address] 17 Mar, 2012 [facility] [address] [id number] [address] [place] [address], [place] [address] 17 Mar, 2012 [facility] [address] [id number] [address] [place] [address], [place] [address] 11 Mar, 2012 [facility] [address] [id number] [address] [place] [address], [place] [address] 10 Mar, 2012 [facility] [address] [id number] [address] [place] [address], [place] [address] 05 Mar, 2013 [facility] [address] [id number] [address] [place] [address], [place] [address] 04 Mar, 2013 [facility] [address] [id number] [address] [place] [address], [place] [address] 20 Jan, 2013 [facility] [address] [id number] [address] [place] [address], [place] [address] Jan, [facility] [address] [id number] [address] [place] [address], [place] [address] Jan, [facility] [address] [id number] [address] [place] [address], [place] [address] Jan, [facility] [address] [id number] [address] [place] [address], [place] [address] Jan, [facility] [address] [id number] [address] [place] [address], [place] [address] Jan, [facility] [address] [id number] [address] [place] [address], [place] [address] Dec, [facility] [address] [id number] [address] [place] [address], [place] [address] Dec, [facility] [address] [id number] [address] [place] [address], [place] [address] Dec, [facility] [address] [id number] [address] [place] [address], [place] [address] 19 Dec, 2012 [facility] [address] [id number] [address] [place] [address], [place] [address] 18 Dec, 2012 [facility] [address] [id number] [address] [place] [address], [place] [address] 17 Dec, 2012 [facility] [address] [id number] [address] [place] [address], [place] [address] 16 Dec, 2012 [facility] [address] [id number] [address] [place] [address], [place] [address] 16 Dec, 2012 [facility] [address] [id number] [address] [place] [address], [place] [address] 15 Dec, 2012 [facility] [address] [id number] [address] [place] [address], [place] [address] Dec, [facility] [address] [id number] [address] [place] [address], [place] [address] Dec, [facility] [address] [id number] [address] [place] [address], [place] [address] Dec, [facility] [address] [id number] [address] [place] [address], [place] [address] Dec, [facility] [address] [id number] [address] [place] [address], [place] [address] Dec, [facility] [address] [id number] [address] [place] [address], [place] [address] Dec, [facility] [address] [id number] [address] [place] [address], [place] [address] Dec, [facility] [address] [id number] [address] [place] [address], [place] [address] October, [facility] [address] [id number] [address] [place] [address], [place] [address] October, [facility] [address] [id number] [address] [place] [address], [place] [address] October, [facility] [address] [id number] [address] [place] [address], [place] [address] October, [facility] [address] [id number] [address] [place] [address], [place] [address] October, [facility] [address] [id number] [address] [place] [address], [place] [address] October, [facility] [address] [id number] [address] [place] [address], [place] [address] October, [facility] [address] [id number] [address] [place] [address], [place] [address] Oct, [facility] [address] [id number] [address] [place] [address], [place] [address] Oct, [facility] [address] [id number] [address] [place] [address], [place] [address] Oct, [facility] [address] [id number] [address] [place] [address], [place] [address] Oct, [facility] [address] [id number] [address] [place] [address], [place] [address] Oct, [facility] [address] [id number] [address] [place] [address], [place] [address] Oct, [facility] [address] [id number] [address] [place] [address], [place] [address] Oct, [facility] [address] [id number] [address] [place] [address], [place] [address] 15 Oct, 2012 [facility] [address] [id number] [address] [place] [address], [place] [address] Oct, [facility] [address] [id number] [address] [place] [address], [place] [address] Oct, [facility] [address] [id number] [address] [place] [address], [place] [address] Oct, [facility] [address] [id number] [address] [place] [address], [place] [address] Oct, [facility] [address] [id number] [address] [place] [address], [place] [address] Aug, [facility] [address] [id number] [address] [place] [address], [place] [address] Aug, [facility] [address] [id number] [address] [place] [address], [place] [address] Aug, [facility] [address] [id number] [address] [place] [address], [place] [address] Aug, [facility] [address] [id number] [address] [place] [address], [place] [address] Aug, [facility] [address] [id number] [address] [place] [address], [place] [address] Aug, [facility] [address] [id number] [address] [place] [address], [place] [address] Aug, [facility] [address] [id number] [address] [place] [address], [place] [address] 14 Aug, 2012 [facility] [address] [id number] [address] [place] [address], [place] [address] Aug, [facility] [address] [id number] [address] [place] [address], [place] [address] Aug, [facility] [address] [id number] [address] [place] [address], [place] [address] Jul, [facility] [address] [id number] [address] [place] [address], [place] [address] Jul, [facility] [address] [id number] [address] [place] [address], [place] [address] Jul, [facility] [address] [id number] [address] [place] [address], [place] [address] Jun, [facility] [address] [id number] [address] [place] [address], [place] [address] Jun, [facility] [address] [id number] [address] [place] [address], [place] [address] 18 Jun, 2012 [facility] [address] [id number] [address] [place] [address], [place] [address] 18 Jun, 2012 [facility] [address] [id number] [address] [place] [address], [place] [address] 18 Jun, 2012 [facility] [address] [id number] [address] [place] [address], [place] [address] 14 Jun, 2012 [facility] [address] [id number] [address] [place] [address], [place] [address] 14 Jun, 2012 [facility] [address] [id number] [address] [place] [address], [place] [address] 13 Jun, 2012 [facility] [address] [id number] [address] [place] [address], [place] [address] 13 Jun, 2012 [facility] [address] [id number] [address] [place] [address], [place] [address] 11 Jun, 2012 [facility] [address] [id number] [address] [place] [address], [place] [address] 11 Jun, 2012 [facility] [address] [id number] [address] [place] [address], [place] [address] 11 Jun, 2012 [facility] [address] [id number] [address] [place] [address], [place] [address] 11 Jun, 2012 [facility] [address] [id number] [address] [place] [address], [place] [address] 07 Jun, 2012 [facility] [address] [id number] [address] [place] [address], [place] [address] 07 Jun, 2012 [facility] [address] [id number] [address] [place] [address], [place] [address] 06 Jun, 2012 [facility] [address] [id number] [address] [place] [address], [place] [address] 06 Jun, 2012 [facility] [address] [id number] [address] [place] [address], [place] [address] Jun, [facility] [address] [id number] [address] [place] [address], [place] [address] Jun, [facility] [address] [id number] [address] [place] [address], [place] [address] Jun, [facility] [address] [id number] [address] [place] [address], [place] [address] Jun, [facility] [address] [id number] [address] [place] [address], [place] [address] Jun, [facility] [address] [id number] [address] [place] [address], [place] [address] Jun, [facility] [address] [id number] [address] [place] [address], [place] [address] May, [facility] [address] [id number] [address] [place] [address], [place] [address] May, [facility] [address] [id number] [address] [place] [id number] May, [facility] [address] [id number] [address] [place] [address], [place] [address] May, [facility] [address] [id number] [address] [place] [id number] May, [facility] [address] [id number] [address] [place] [id number] May, [facility] [address] [id number] [address] [place] [id number] May, [facility] [address] [id number] [address] [place] [address], [place] [address] May, [facility] [address] [id number] [address] [place] [address], [place] [address] Apr, [facility] [address] [id number] [address] [place] [id number] Apr, [facility] [address] [id number] [address] [place] [id number] 29 Apr, 2012 [facility] [address] [id number] [address] [place] [address], [place] [address] Apr, [facility] [address] [id number] [address] [place] [id number] 16 Apr, 2012 [facility] [address] [id number] [address] [place] [id number] Apr, [facility] [address] [id number] [address] [place] [id number] Apr, [facility] [address] [id number] [address] [place] [address], [place] [address] Apr, [facility] [address] [id number] [address] [place] [id number] 09 Apr, 2012 [facility] [address] [id number] [address] [place] [id number] 08 Apr, 2012 [facility] [address] [id number] [address] [place] [id number] 04 Apr, 2012 [facility] [address] [id number] [address] [place] [id number] 02 Apr, 2012 [facility] [address] [id number] [address] [place] [id number] 19 Mar, 2011 [facility] [address] [id number] [address] [place] [id number] 18 Sep, 2011 [facility] [address] [id number] [address] [place] [id number] 12 Mar, 2011 [facility] [address] [id number] [address] [place] [id number] 12 Mar, 2011 [facility] [address] [id number] [address] [place] [id number] 12 Mar, 2011 [facility] [address] [id number] [address] [place] [id number] 12 Mar, 2011 [facility] [address] [id number] [address] [place] [address], [place] [address] Mar, [facility] [address] [id number] [address] [place] [address], [place] [address] Jan, [facility] [address] [id number] [address] [place] [address], [place] [address] Jan, [facility] [address] [id number] [address] [place] [address], [place] [id number] Jan, [facility] [address] [id number] [address] [place] [address], [place] [id number] Jan, [facility] [address] [id number] [address] [place] [address], [place] [address] Jan, [facility] [address] [id number] [address] [place] [address], [place] [address] Jan, [facility] [address] [id number] [address] [place] [address], [place] [address] Jan, [facility] [address] [id number] [address] [place] [address], [place] [address] Jan, [facility] [address] [id number] [address] [place] [address], [place] [address] Jan, [facility] [address] [id number] [address] [place] [address], [place] [address] Jan, [facility] [address] [id number] [address] [place] [address], [place] [address] Jan, [facility] [address] [id number] [address] [place] [address], [place] [address] Dec, [facility] [address] [id number] [address] [place] [address], [place] [address] Dec, [facility] [address] [id number] [address] [place] [address], [place] [address] Dec, [facility] [address] [id number] [address] [place] [address], [place] [address] Dec, [facility] [address] [id number] [address] [place] [address], [place] [address] 20 Jan, 2012 [facility] [address] [id number] [address] [place] [address], [place] [address] 19 Jan, 2012 [facility] [address] [id number] [address] [place] [address], [place] [address] 18 Jan, 2012 [facility] [address] [id number] [address] [place] [address], [place] [address] 17 Jan, 2012 [facility] [address] [id number] [address] [place] [address], [place] [address] 16 Jan, 2012 [facility] [address] [id number] [address] [place] [address], [place] [address] 13 Jan, 2012 [facility] [address] [id number] [address] [place] [address], [place] [address] Dec, [facility] [address] [id number] [address] [place] [address], [place] [address] 02 Jan, 2012 [facility] [address] [id number] [address] [place] [address], [place] [address] Dec, [facility] [address] [id number] [address] [place] [address], [place] [address] Dec, [facility] [address] [id number] [address] [place] [address], [place] [address] Dec, [facility] [address] [id number] [address] [place] [address], [place] [address] 18 Dec, 2011 [facility] [address] [id number] [address] [place] [address], [place] [address] 15 Dec, 2011 [facility] [address] [id number] [address] [place] [address], [place] [address] 06 Dec, 2011 [facility] [address] [id number] [address] [place] [address], [place] [address] 05 Dec, 2011 [facility] [address] [id number] [address] [place] [address], [place] [address] October, [facility] [address] [id number] [address] [place] [address], [place] [address] October, [facility] [address] [id number] [address] [place] [address], [place] [address] October, [facility] [address] [id number] [address] [place] [address], [place] [address] October, [facility] [address] [id number] [address] [place] [address], [place] [address] October, [facility] [address] [id number] [address] [place] [address], [place] [address] October, [facility] [address] [id number] [address] [place] [address], [place] [address] Oct, [facility] [address] [id number] [address] [place] [address], [place] [address] Oct, [facility] [address] [id number] [address] [place] [address], [place] [address] Oct, [facility] [address] [id number] [address] [place] [address], [place] [address] Oct, [facility] [address] [id number] [address] [place] [address], [place] [address] Oct, [facility] [address] [id number] [address] [place] [address], [place] [address] Oct, [facility] [address] [id number] [address] [place] [address], [place] [address] Oct, [facility] [address] [id number] [address] [place] [address], [place] [address] Aug, [facility] [address] [id number] [address] [place] [address], [place] [address] Aug, [facility] [address] [id number] [address] [place] [address], [place] [address] Aug, [facility] [address] [id number] [address] [place] [address], [place] [address] 13 Sep, 2011 [facility] [address] [id number] [address] [place] [address], [place] [address] 05 Sep, 2011 [facility] [address] [id number] [address] [place] [address], [place] [address] 05 Sep, 2011 [facility] [address] [id number] [address] [place] [address], [place] [address] 27 Aug, 2011 [facility] [address] [id number] [address] [place] [address], [place] [address] Aug, [facility] [address] [id number] [address] [place] [address], [place] [address] 08 Aug, 2011 [facility] [address] [id number] [address] [place] [address], [place] [address] Jul, [facility] [address] [id number] [address] [place] [address], [place] [address] Jul, [facility] [address] [id number] [address] [place] [address], [place] [address] Jul, [facility] [address] [id number] [address] [place] [address], [place] [address] Jul, [facility] [address] [id number] [address] [place] [address], [place] [address] Jun, [facility] [address] [id number] [address] [place] [address], [place] [address] Jun, [facility] [address] [id number] [address] [place] [address], [place] [address] May, [facility] [address] [id number] [address] [place] [address], [place] [address] May, [facility] [address] [id number] [address] [place] [address], [place] [address] 28 May, 2011 [facility] [address] [id number] [address] [address] May, [facility] [address] [id number] [address] [place] [address] May, [facility] [address] [id number] [address] [place] [address] Apr, [facility] [address] [id number] [address] [place] [id number] Apr, [facility] [address] [id number] [address] [place] [id number] Apr, [facility] [address] [id number] [address] [place] [id number] Jan, [facility] [address] [id number] [address] [place] [address] Dec, [facility] [address] [id number] [address] [place] [id number] October, [facility] [address] [id number] [address] [place] [id number] Jun, [facility] [address] [id number] [address] [place] [id number] Apr, [facility] [address] [id number] [address] [place] [id number] Apr, [facility] [address] [id number] [address] [place] [id number] Apr, [facility] [address] [id number] [address] [place] [id number] Jun, IMMUNIZATIONS No Known Immunizations SOCIAL HISTORY Never Assessed REASON FOR VISIT EMR-[facility] PLAN OF CARE VITAL SIGNS MEDICATIONS Unknown [...]
--- OUTSIDE RECORDS SUMMARY | 2020-01-25 12:48 | XMS REPORT ---
Author Author Ana Mayer Doctor Organization [facility] Address Unknown Phone Unavailable Care Team Providers Care [employer] Adminstrator Name Role Phone Migration, Doctor Unavailable Unavailable PROBLEMS Type Condition ICD9-CM Code [id number] Code Onset Dates Condition S tatus SNOMED Code Problem Attention deficit R41.840 Active 76 499847 Problem Chronic hepatitis C without hepatic coma B18.2 Active 229491179 Problem Cannabis abuse F12.10 Active 37204 009 Problem Bipolar disorder, in partial remission, most rec ent episode hypomanic F31.71 Active 130285629 Problem Attention deficit hyperactivity disorder (ADHD), combi luciano type F90.2 Active 73565139 Problem Bipolar 1 disorder F31.9 Active 3 90689208 Problem H/O laminectomy Z98.89 Active 1616 00147 Problem Other chronic pain G89.29 Active 8 9331518 Problem Anxiety disorder, unspecified type F41.9 Active [id number] ALLERGIES No Information ENCOUNTERS Encounter Location Date Diagnosis [facility] [address] [facility] [id number] [address] [place] [address] October, [facility] [address] [facility] [id number] [address] [place] [address] Aug, Bipolar disorder, in partial remission, most recent episode hypomanic F31.71 ; Attention deficit hyperactivity disorder (ADHD), combined type F90.2 and Anxiety disorder, unspecified type F41.9 [facility] [address] [facility] [id number] [address] [place] [address] Aug, [facility] [address] [facility] [id number] [address] [place] [address] Aug, Bipolar disorder, in partial remission, most recent episode hypomanic F31.71 [facility] [address] [facility] [id number] [address] [place] [address] Aug, [facility] [address] [id number] [address] [place] [address] Aug, Bipolar disorder, in partial remission, most recent episode hypomanic F31.71 [facility] [address] [id number] [address] [place] [address] Aug, Bipolar disorder, in partial remission, most recent episode hypomanic F31.71 ; Attention deficit hyperactivity disorder (ADHD), combined type F90.2 and Anxiety disorder, unspecified type F41.9 [facility] [address] [id number] [address] [place] [address] Aug, Low back pain M54.5 and Pain in left wrist M25.532 [facility] [address] [id number] [address] [place] [address] Aug, [facility] [address] [id number] [address] [place] [address] Jun, [facility] [address] [facility] [id number] [address] [place] [address] Apr, Bipolar disorder, in partial remission, most recent episode hypomanic F31.71 [facility] [address] [id number] [address] [place] [address] Apr, [facility] [address] [id number] [address] [place] [address] Apr, Bipolar disorder, in partial remission, most recent episode hypomanic F31.71 ; Attention deficit hyperactivity disorder (ADHD), combined type F90.2 ; Anxiety disorder, unspecified type F41.9 and Other custodial (current) 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 Z79.899 [facility] [address] [id number] [address] [place] [address] Apr, Bipolar disorder, in partial remission, most recent episode hypomanic F31.71 [facility] [address] [id number] [address] [place] [address] Apr, Bipolar disorder, in partial remission, most recent episode hypomanic F31.71 [facility] [address] [facility] [id number] [address] [place] [address] Mar, [facility] [address] [id number] [address] [place] [address] Mar, Bipolar disorder, in partial remission, most recent episode hypomanic F31.71 ; Encounter for immunization Z23 and Low back pain M54.5 [facility] [address] [id number] [address] [place] [address] Mar, Bipolar disorder, in partial remission, most recent episode hypomanic F31.71 [facility] [address] [id number] [address] [place] [address] Mar, Bipolar disorder, in partial remission, most recent episode hypomanic F31.71 [facility] [address] [facility] [id number] [address] [place] [address] Jan, Bipolar disorder, in partial remission, most recent episode hypomanic F31.71 [facility] [address] [facility] [id number] [address] [place] [address] Jan, Bipolar disorder, in partial remission, most recent episode hypomanic F31.71 [facility] [address] [facility] [id number] [address] [place] [address] Dec, Bipolar disorder, in partial remission, most recent episode hypomanic F31.71 [facility] [address] [facility] [id number] [address] [place] [address] Dec, Bipolar disorder, in partial remission, most recent episode hypomanic F31.71 ; Attention deficit hyperactivity disorder (ADHD), combined type F90.2 ; Anxiety disorder, unspecified type F41.9 and Other custodial (current) 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 Z79.899 [facility] [address] [facility] [id number] [address] [place] [address] Dec, Bipolar disorder, in partial remission, most recent episode hypomanic F31.71 [facility] [address] [facility] [id number] [address] [place] [address] Dec, Bipolar disorder, in partial remission, most recent episode hypomanic F31.71 [facility] [address] [id number] [address] [place] [address] October, Bipolar disorder, in partial remission, most recent episode hypomanic F31.71 [facility] [address] [id number] [address] [place] [address] October, [facility] [address] [id number] [address] [place] [address] October, [facility] [address] [id number] [address] [place] [address] Oct, Bipolar disorder, in partial remission, most recent episode hypomanic F31.71 ; Attention deficit hyperactivity disorder (ADHD), combined type F90.2 ; Anxiety disorder, unspecified type F41.9 and Encounter for drug screening Z02.83 [facility] [address] [id number] [address] [place] [address] Oct, Bipolar disorder, in partial remission, most recent episode hypomanic F31.71 [facility] [address] [id number] [address] [place] [address] Oct, Bipolar disorder, in partial remission, most recent episode hypomanic F31.71 [facility] [address] [id number] [address] [place] [address] Aug, Bipolar disorder, in partial remission, most recent episode hypomanic F31.71 [facility] [address] [id number] [address] [place] [address] Aug, Bipolar disorder, in partial remission, most recent episode hypomanic F31.71 [facility] [address] [id number] [address] [place] [address] Aug, Bipolar disorder, in partial remission, most recent episode hypomanic F31.71 [facility] [address] [id number] [address] [place] [address] Jul, Bipolar disorder, in partial remission, most recent episode hypomanic F31.71 ; Attention deficit hyperactivity disorder (ADHD), combined type F90.2 and Anxiety disorder, unspecified type F41.9 [facility] [address] [id number] [address] [place] [address] Jul, Bipolar disorder, in partial remission, most recent episode hypomanic F31.71 [facility] [address] [id number] [address] [place] [address] Jun, Bipolar disorder, in partial remission, most recent episode hypomanic F31.71 [facility] [address] [id number] [address] [place] [address] May, Bipolar disorder, in partial remission, most recent episode hypomanic F31.71 [facility] [address] [facility] [id number] [address] [place] [address] May, Bipolar disorder, in partial remission, most recent episode hypomanic F31.71 [facility] [address] [facility] [id number] [address] [place] [address] Apr, [facility] [address] [id number] [address] [place] [address] Apr, Bipolar disorder, in partial remission, most recent episode hypomanic F31.71 ; Attention deficit hyperactivity disorder (ADHD), combined type F90.2 ; Anxiety disorder, unspecified type F41.9 and Cannabis abuse F12.10 [facility] [address] [id number] [address] [place] [address] Apr, Attention deficit hyperactiv ity disorder (ADHD), combined type F90.2 [facility] [address] [id number] [address] [place] [address] Mar, Attention deficit hyperactiv ity disorder (ADHD), combined type F90.2 [facility] [address] [facility] [id number] [address] [place] [address] Mar, Anxiety disorder, unspecifie d type F41.9 [facility] [address] [facility] [id number] [address] [place] [address] Jan, Attention deficit hyperactiv ity disorder (ADHD), combined type F90.2 [facility] [address] [facility] [id number] [address] [place] [address] Jan, Anxiety disorder, unspecifie d type F41.9 [facility] [address] [facility] [id number] [address] [place] [address] Jan, Other chronic pain G89.29 ; Chronic hepatitis C without hepatic coma B18.2 and Bipolar 1 disorder F31.9 [facility] [address] [facility] [id number] [address] [place] [address] Dec, Attention deficit hyperactiv ity disorder (ADHD), combined type F90.2 [facility] [address] [facility] [id number] [address] [place] [address] Dec, Bipolar disorder, in partial remission, most recent episode hypomanic F31.71 ; Attention deficit hyperactivity disorder (ADHD), combined type F90.2 and Anxiety disorder, unspecified type F41.9 [facility] [address] [facility] [id number] [address] [place] [address] Dec, Bipolar disorder, in partial remission, most recent episode hypomanic F31.71 ; Attention deficit hyperactivity disorder (ADHD), combined type F90.2 and Anxiety disorder, unspecified type F41.9 [facility] [address] [facility] [id number] [address] [place] [address] Dec, Bipolar 1 disorder F31.9 and Attention deficit R41.840 [facility] [address] [facility] [id number] [address] [place] [address] Oct, Other chronic pain G89.29 ; Alopecia L65.9 and Screening, lipid Z13.220 [facility] [address] [facility] [id number] [address] [place] [address] Oct, [place] [address] [facility] [id number] [address] [place] [address] Aug, [facility] [address] [facility] [id number] [address] [place] [address] Aug, Eustachian tube dysfunction, right H69.81 ; Vertigo R42 and Other chronic pain G89.29 [facility] [address] [id number] [address] [place] [address] Aug, [facility] [address] [id number] [address] [place] [address] Jun, [facility] [address] [id number] [address] [place] [address] Jun, Low back pain M54.5 and Othe r chronic pain G89.29 [facility] [address] [id number] [address] [place] [address] Jun, [facility] [address] [id number] [address] [place] [address] May, [facility] [address] [id number] [address] [place] [address] Jan, [facility] [address] [id number] [address] [place] [address] Dec, [facility] [address] [id number] [address] [place] [address] Dec, [facility] [address] [id number] [address] [place] [address] Jun, [facility] [address] [id number] [address] [place] [address] Apr, Eustachian tube dysfunction, unspecified laterality H69.80 ; Hot flashes N95.1 and Encounter for immunization Z23 [facility] [address] [id number] [address] [place] [address] Jan, [facility] [address] [id number] [address] [place] [address] Jan, [facility] [address] [id number] [address] [place] [address] Jan, [facility] [address] [id number] [address] [place] [address] Jan, [facility] [place] [address] [id number] [address] [place] [address] Jan, Encounter to establish care V65.8 ; Bipolar 1 disorder 296.7 ; Abdominal pain 789.00 ; Constipation 564.00 ; Hard of hearing 389.9 and Drug abuse 305.90 [facility] [address] [id number] [address] [place] [address] Dec, [facility] [place] [address] [id number] [address] [place] [phone] October, [facility] [place] [address] [id number] [address] [place] [address] October, [facility] [place] [address] [id number] [address] [place] [address] Oct, [facility] [place] [address] [id number] [address] [place] [address] Oct, [facility] [place] [address] [id number] [address] [place] [phone] Oct, [facility] [place] [address] [id number] [address] [place] [address] Aug, [facility] [place] [address] [id number] [address] [place] [address] Aug, [facility] [place] [address] [id number] [address] [place] [address] Aug, [facility] [place] [address] [id number] [address] [place] [address] Aug, [facility] [place] [address] [id number] [address] [place] [address] Aug, [facility] [place] [address] [id number] [address] [place] [address] Aug, [facility] [place] [address] [id number] [address] [place] [address], [place] [address] Aug, 2014 [facility] [address] [id number] [address] [place] [address], [place] [address] Aug, 2014 [facility] [address] [id number] [address] [place] [address], [place] [address] Aug, 2014 [facility] [address] [id number] [address] [place] [address], [place] [address] Aug, 2014 [facility] [address] [id number] [address] [place] [address], [place] [address] Aug, 2014 [facility] [address] [id number] [address] [place] [address], [place] [address] Aug, 2014 [facility] [address] [id number] [address] [place] [address], [place] [address] Aug, 2014 [facility] [address] [id number] [address] [place] [address], [place] [address] Aug, 2014 [facility] [address] [id number] [address] [place] [address], [place] [address] Aug, [facility] [address] [id number] [address] [place] [address], [place] [address] Jul, [facility] [address] [id number] [address] [place] [address], [place] [address] Jul, [facility] [address] [id number] [address] [place] [address], [place] [address] Jul, [facility] [address] [id number] [address] [place] [address], [place] [address] Jul, [facility] [address] [id number] [address] [place] [address], [place] [address] Jul, [facility] [address] [id number] [address] [place] [address], [place] [address] Jul, [facility] [address] [id number] [address] [place] [address], [place] [address] Jul, [facility] [address] [id number] [address] [place] [address], [place] [address] Jul, [facility] [address] [id number] [address] [place] [address], [place] [address] Jun, [facility] [address] [id number] [address] [place] [address], [place] [address] Jun, [facility] [address] [id number] [address] [place] [address], [place] [address] Jun, [facility] [address] [id number] [address] [place] [address], [place] [address] Jun, [facility] [address] [id number] [address] [place] [address], [place] [address] Jun, [facility] [address] [id number] [address] [place] [address], [place] [address] Jun, [facility] [address] [id number] [address] [place] [address], [place] [address] Jun, [facility] [address] [id number] [address] [place] [address], [place] [address] Jun, [facility] [address] [id number] [address] [place] [address], [place] [address] Jun, [facility] [address] [id number] [address] [place] [address], [place] [address] Jun, [facility] [address] [id number] [address] [place] [address], [place] [address] Jun, [facility] [address] [id number] [address] [place] [address], [place] [address] May, [facility] [address] [id number] [address] [place] [address], [place] [address] May, [facility] [address] [id number] [address] [place] [address], [place] [address] May, [facility] [address] [id number] [address] [place] [address], [place] [address] May, [facility] [address] [id number] [address] [place] [address], [place] [address] May, [facility] [address] [id number] [address] [place] [address], [place] [address] May, [facility] [address] [id number] [address] [place] [address], [place] [address] May, [facility] [address] [id number] [address] [place] [address], [place] [address] Apr, [facility] [address] [id number] [address] [place] [address], [place] [address] Apr, [facility] [address] [id number] [address] [place] [address], [place] [address] Apr, [facility] [address] [id number] [address] [place] [address], [place] [address] Apr, [facility] [address] [id number] [address] [place] [address], [place] [address] Apr, [facility] [address] [id number] [address] [place] [address], [place] [address] Apr, [facility] [address] [id number] [address] [place] [address], [place] [address] Mar, [facility] [address] [id number] [address] [place] [address], [place] [address] 29 Mar, 2013 [facility] [address] [id number] [address] [place] [address], [place] [address] 10 Mar, 2013 [facility] [address] [id number] [address] [place] [address], [place] [address] 10 Mar, 2013 [facility] [address] [id number] [address] [place] [address], [place] [address] Mar, 2013 [facility] [address] [id number] [address] [place] [address], [place] [address] Mar, [facility] [address] [id number] [address] [place] [address], [place] [address] Jan, [facility] [address] [id number] [address] [place] [address], [place] [address] Jan, [facility] [address] [id number] [address] [place] [address], [place] [address] Jan, [facility] [address] [id number] [address] [place] [address], [place] [address] Jan, [facility] [address] [id number] [address] [place] [address], [place] [address] Dec, [facility] [address] [id number] [address] [place] [address], [place] [address] Dec, [facility] [address] [id number] [address] [place] [address], [place] [address] Dec, [facility] [address] [id number] [address] [place] [address], [place] [address] Dec, [facility] [address] [id number] [address] [place] [address], [place] [address] Dec, [facility] [address] [id number] [address] [place] [address], [place] [address] Dec, [facility] [address] [id number] [address] [place] [address], [place] [address] Dec, [facility] [address] [id number] [address] [place] [address], [place] [address] Dec, [facility] [address] [id number] [address] [place] [address], [place] [address] Dec, [facility] [address] [id number] [address] [place] [address], [place] [address] Dec, [facility] [address] [id number] [address] [place] [address], [place] [address] Dec, [facility] [address] [id number] [address] [place] [address], [place] [address] Dec, [facility] [address] [id number] [address] [place] [address], [place] [address] October, [facility] [address] [id number] [address] [place] [address], [place] [address] October, [facility] [address] [id number] [address] [place] [address], [place] [address] October, [facility] [address] [id number] [address] [place] [address], [place] [address] October, [facility] [address] [id number] [address] [place] [address], [place] [address] October, [facility] [address] [id number] [address] [place] [address], [place] [address] October, [facility] [address] [id number] [address] [place] [address], [place] [address] Oct, [facility] [address] [id number] [address] [place] [address], [place] [address] Oct, [facility] [address] [id number] [address] [place] [address], [place] [address] Oct, [facility] [address] [id number] [address] [place] [address] [address] Oct, [facility] [address] [id number] [address] [place] [address], [place] [address] Oct, [facility] [address] [id number] [address] [place] [address], [place] [address] Oct, [facility] [address] [id number] [address] [place] [address], [place] [address] Oct, [facility] [address] [id number] [address] [place] [address], [place] [address] Oct, [facility] [address] [id number] [address] [place] [address], [place] [address] Oct, [facility] [address] [id number] [facility] [place] [address] 09 Oct, 2013 [facility] [address] [id number] [facility] [place] [address] Oct, [facility] [address] [id number] [address] [place] [address], [place] [address] Oct, [facility] [address] [id number] [address] [place] [address], [place] [address] Aug, [facility] [address] [id number] [address] [place] [address], [place] [address] Aug, [facility] [address] [id number] [address] [place] [address], [place] [address] Aug, [facility] [address] [id number] [address] [place] [address], [place] [address] Aug, [facility] [address] [id number] [address] [place] [address], [place] [address] Aug, [facility] [address] [id number] [address] [place] [address], [place] [address] 05 Aug, 2013 [facility] [address] [id number] [address] [place] [address], [place] [address] Aug, [facility] [address] [id number] [address] [place] [address], [place] [address] Aug, [facility] [address] [id number] [address] [place] [address], [place] [address] Aug, [facility] [address] [id number] [address] [place] [address], [place] [address] Aug, [facility] [address] [id number] [address] [place] [address], [place] [address] Aug, [facility] [address] [id number] [address] [place] [address], [place] [address] Aug, [facility] [address] [id number] [address] [place] [address], [place] [address] Aug, [facility] [address] [id number] [address] [place] [address], [place] [address] 20 Aug, 2013 [facility] [address] [id number] [address] [place] [address], [place] [address] 14 Aug, 2013 [facility] [address] [id number] [address] [place] [address], [place] [address] 14 Aug, 2013 [facility] [address] [id number] [address] [place] [address], [place] [address] 14 Aug, 2013 [facility] [address] [id number] [address] [place] [address], [place] [address] 14 Aug, 2013 [facility] [address] [id number] [address] [place] [address], [place] [address] 07 Aug, 2013 [facility] [address] [id number] [address] [place] [address], [place] [address] 07 Aug, 2013 [facility] [address] [id number] [address] [place] [address], [place] [address] 06 Aug, 2013 [facility] [address] [id number] [address] [place] [address], [place] [address] 06 Aug, 2013 [facility] [address] [id number] [address] [place] [address], [place] [address] 04 Aug, 2013 [facility] [address] [id number] [address] [place] [address], [place] [address] 04 Aug, 2013 [facility] [address] [id number] [address] [place] [address], [place] [address] Aug, [facility] [address] [id number] [address] [place] [address], [place] [address] Jul, [facility] [address] [id number] [address] [place] [address], [place] [address] Jul, [facility] [address] [id number] [address] [place] [address], [place] [address] Jul, [facility] [address] [id number] [address] [place] [address], [place] [address] Jul, [facility] [address] [id number] [address] [place] [address], [place] [address] Jul, [facility] [address] [id number] [address] [place] [address], [place] [address] Jul, [facility] [address] [id number] [address] [place] [address], [place] [address] Jul, [facility] [address] [id number] [address] [place] [address], [place] [address] Jul, [facility] [address] [id number] [address] [place] [address], [place] [address] Jul, [facility] [address] [id number] [address] [place] [address], [place] [address] Jul, [facility] [address] [id number] [address] [place] [address], [place] [address] Jul, [facility] [address] [id number] [address] [place] [address], [place] [address] Jul, [facility] [address] [id number] [address] [place] [address], [place] [address] Jul, [facility] [address] [id number] [address] [place] [address], [place] [address] Jul, [facility] [address] [id number] [address] [place] [address], [place] [address] Jul, [facility] [address] [id number] [address] [place] [address], [place] [address] Jul, [facility] [address] [id number] [address] [place] [address], [place] [address] Jul, [facility] [address] [id number] [address] [place] [address], [place] [address] Jul, [facility] [address] [id number] [address] [place] [address], [place] [address] Jul, [facility] [address] [id number] [address] [place] [address], [place] [address] Jul, [facility] [address] [id number] [address] [place] [address], [place] [address] Jun, [facility] [address] [id number] [address] [place] [address], [place] [address] Jun, [facility] [address] [id number] [address] [place] [address], [place] [address] Jun, [facility] [address] [id number] [address] [place] [address], [place] [address] Jun, [facility] [address] [id number] [address] [place] [address], [place] [address] Jun, [facility] [address] [id number] [address] [place] [address], [place] [address] Jun, [facility] [address] [id number] [address] [place] [address], [place] [address] Jun, [facility] [address] [id number] [address] [place] [address], [place] [address] Jun, [facility] [address] [id number] [address] [place] [address], [place] [address] Jun, [facility] [address] [id number] [address] [place] [address], [place] [address] Jun, [facility] [address] [id number] [address] [place] [address], [place] [address] Jun, [facility] [address] [id number] [address] [place] [address], [place] [address] Jun, [facility] [address] [id number] [address] [place] [address], [place] [address] Jun, [facility] [address] [id number] [address] [place] [address], [place] [address] Jun, [facility] [address] [id number] [address] [place] [address], [place] [address] 20 Jun, 2013 [facility] [address] [id number] [address] [place] [address], [place] [address] 18 Jun, 2013 [facility] [address] [id number] [address] [place] [address], [place] [address] 18 Jun, 2013 [facility] [address] [id number] [address] [place] [address], [place] [address] 17 Jun, 2013 [facility] [address] [id number] [address] [place] [address], [place] [address] 17 Jun, 2013 [facility] [address] [id number] [address] [place] [address], [place] [address] 13 Jun, 2013 [facility] [address] [id number] [address] [place] [address], [place] [address] 12 Jun, 2013 [facility] [address] [id number] [address] [place] [address], [place] [address] 12 Jun, 2013 [facility] [address] [id number] [address] [place] [address], [place] [address] 09 Jun, 2013 [facility] [address] [id number] [address] [place] [address], [place] [address] 05 Jun, 2013 [facility] [address] [id number] [address] [place] [address], [place] [address] 05 Jun, 2013 [facility] [address] [id number] [address] [place] [address], [place] [address] 04 Jun, 2013 [facility] [address] [id number] [address] [place] [address], [place] [address] 04 Jun, 2013 [facility] [address] [id number] [address] [place] [address], [place] [address] 17 May, 2013 [facility] [address] [id number] [address] [place] [address], [place] [address] 17 May, 2013 [facility] [address] [id number] [address] [place] [address], [place] [address] May, [facility] [address] [id number] [address] [place] [address], [place] [address] May, [facility] [address] [id number] [address] [place] [address], [place] [address] May, [facility] [address] [id number] [address] [place] [address], [place] [address] May, [facility] [address] [id number] [address] [place] [address], [place] [address] Apr, [facility] [address] [id number] [address] [place] [address], [place] [address] Apr, [facility] [address] [id number] [address] [place] [address], [place] [address] Apr, [facility] [address] [id number] [address] [place] [address], [place] [address] Apr, [facility] [address] [id number] [address] [place] [address], [place] [address] Apr, [facility] [address] [id number] [address] [place] [address], [place] [address] Apr, [facility] [address] [id number] [address] [place] [address], [place] [address] Apr, [facility] [address] [id number] [address] [place] [address], [place] [address] Apr, [facility] [address] [id number] [address] [place] [address], [place] [address] 26 Mar, 2013 [facility] [address] [id number] [address] [place] [address], [place] [address] 24 Sep2012 [facility] [address] [id number] [address] [place] [address], [place] [address] 17 Mar, 2013 [facility] [address] [id number] [address] [place] [address], [place] [address] 17 Mar, 2013 [facility] [address] [id number] [address] [place] [address] [place] [address] 11 Mar, 2013 [facility] [address] [id number] [address] [place] [address], [place] [address] 10 Mar, 2013 [facility] [address] [id number] [address] [place] [address], [place] [address] 05 Mar, 2013 [facility] [address] [id number] [address] [place] [address], [place] [address] 04 Mar, 2013 [facility] [address] [id number] [address] [place] [address], [place] [address] 20 Jan, 2013 [facility] [address] [id number] [address] [place] [address], [place] [address] Jan, [facility] [address] [id number] [address] [place] [address], [place] [address] 14 Jan, 2013 [facility] [address] [id number] [address] [place] [address], [place] [address] Jan, [facility] [address] [id number] [address] [place] [address], [place] [address] Jan, [facility] [address] [id number] [address] [place] [address], [place] [address] Jan, [facility] [address] [id number] [address] [place] [address], [place] [address] Dec, [facility] [address] [id number] [address] [place] [address], [place] [address] Dec, [facility] [address] [id number] [address] [place] [address], [place] [address] Dec, [facility] [address] [id number] [address] [place] [address], [place] [address] Dec, [facility] [address] [id number] [address] [place] [address], [place] [address] Dec, [facility] [address] [id number] [address] [place] [address], [place] [address] 17 Dec, 2012 [facility] [address] [id number] [address] [place] [address], [place] [address] 16 Dec, 2012 [facility] [address] [id number] [address] [place] [address], [place] [address] 16 Dec, 2012 [facility] [address] [id number] [address] [place] [address], [place] [address] 15 Dec, 2012 [facility] [address] [id number] [address] [place] [address], [place] [address] 10 Dec, 2012 [facility] [address] [id number] [address] [place] [address], [place] [address] 28 Dec, 2012 [facility] [address] [id number] [address] [place] [address], [place] [address] Dec, [facility] [address] [id number] [address] [place] [address], [place] [address] Dec, [facility] [address] [id number] [address] [place] [address], [place] [address] Dec, [facility] [address] [id number] [address] [place] [address], [place] [address] Dec, [facility] [address] [id number] [address] [place] [address], [place] [address] Dec, [facility] [address] [id number] [address] [place] [address], [place] [address] October, [facility] [address] [id number] [address] [place] [address], [place] [address] October, [facility] [address] [id number] [address] [place] [address], [place] [address] October, [facility] [address] [id number] [address] [place] [address], [place] [address] October, [facility] [address] [id number] [address] [place] [address], [place] [address] October, [facility] [address] [id number] [address] [place] [address], [place] [address] October, [facility] [address] [id number] [address] [place] [address], [place] [address] October, [facility] [address] [id number] [address] [place] [address], [place] [address] Oct, [facility] [address] [id number] [address] [place] [address], [place] [address] Oct, [facility] [address] [id number] [address] [place] [address], [place] [address] Oct, [facility] [address] [id number] [address] [place] [address], [place] [address] Oct, [facility] [address] [id number] [address] [place] [address], [place] [address] Oct, [facility] [address] [id number] [address] [place] [address], [place] [address] Oct, [facility] [address] [id number] [address] [place] [address], [place] [address] Oct, [facility] [address] [id number] [address] [place] [address], [place] [address] 15 Oct, 2012 [facility] [address] [id number] [address] [place] [address], [place] [address] Oct, [facility] [address] [id number] [address] [place] [address], [place] [address] Oct, [facility] [address] [id number] [address] [place] [address], [place] [address] Oct, [facility] [address] [id number] [address] [place] [address], [place] [address] Oct, [facility] [address] [id number] [address] [place] [address], [place] [address] Aug, [facility] [address] [id number] [address] [place] [address], [place] [address] Aug, [facility] [address] [id number] [address] [place] [address], [place] [address] 12 Aug, 2012 [facility] [address] [id number] [address] [place] [address], [place] [address] 06 Aug, 2012 [facility] [address] [id number] [address] [place] [address], [place] [address] 05 Aug, 2012 [facility] [address] [id number] [address] [place] [address], [place] [address] 05 Aug, 2012 [facility] [address] [id number] [address] [place] [address], [place] [address] 20 Aug, 2012 [facility] [address] [id number] [address] [place] [address], [place] [address] 14 Aug, 2012 [facility] [address] [id number] [address] [place] [address], [place] [address] 12 Aug, 2012 [facility] [address] [id number] [address] [place] [address], [place] [address] Aug, [facility] [address] [id number] [address] [place] [address], [place] [address] Jul, [facility] [address] [id number] [address] [place] [address], [place] [address] Jul, [facility] [address] [id number] [address] [place] [address], [place] [address] Jul, [facility] [address] [id number] [address] [place] [address], [place] [address] Jun, [facility] [address] [id number] [address] [place] [address], [place] [address] Jun, [facility] [address] [id number] [address] [place] [address], [place] [address] Jun, [facility] [address] [id number] [address] [place] [address], [place] [address] Jun, [facility] [address] [id number] [address] [place] [address], [place] [address] Jun, [facility] [address] [id number] [address] [place] [address], [place] [address] 14 Jun, 2012 [facility] [address] [id number] [address] [place] [address], [place] [address] 14 Jun, 2012 [facility] [address] [id number] [address] [place] [address], [place] [address] 13 Jun, 2012 [facility] [address] [id number] [address] [place] [address], [place] [address] 13 Jun, 2012 [facility] [address] [id number] [address] [place] [address], [place] [address] 11 Jun, 2012 [facility] [address] [id number] [address] [place] [address], [place] [address] 11 Jun, 2012 [facility] [address] [id number] [address] [place] [address], [place] [address] 11 Jun, 2012 [facility] [address] [id number] [address] [place] [address], [place] [address] 11 Jun, 2012 [facility] [address] [id number] [address] [place] [address], [place] [address] 07 Jun, 2012 [facility] [address] [id number] [address] [place] [address], [place] [address] 07 Jun, 2012 [facility] [address] [id number] [address] [place] [address], [place] [address] 06 Jun, 2012 [facility] [address] [id number] [address] [place] [address], [place] [address] 06 Jun, 2012 [facility] [address] [id number] [address] [place] [address], [place] [address] Jun, [facility] [address] [id number] [address] [place] [address], [place] [address] 06 Jun, 2012 [facility] [address] [id number] [address] [place] [address], [place] [address] 05 Jun, 2012 [facility] [address] [id number] [address] [place] [address], [place] [address] Jun, [facility] [address] [id number] [address] [place] [address], [place] [address] Jun, [facility] [address] [id number] [address] [place] [address], [place] [address] Jun, [facility] [address] [id number] [address] [place] [address], [place] [address] May, [facility] [address] [id number] [address] [place] [address], [place] [address] May, [facility] [address] [id number] [address] [place] [address], [place] [address] May, [facility] [address] [id number] [address] [place] [address], [place] [address] May, [facility] [address] [id number] [address] [place] [address], [place] [address] May, [facility] [address] [id number] [address] [place] [address] [id number] May, [facility] [address] [id number] [address] [place] [address], [place] [address] May, [facility] [address] [id number] [address] [place] [address], [place] [address] May, [facility] [address] [id number] [address] [place] [address], [place] [address] Apr, [facility] [address] [id number] [address] [place] [address] Apr, [facility] [address] [id number] [address] [place] [address], [place] [address] Apr, [facility] [address] [id number] [address] [place] [address], [place] [address] Apr, [facility] [address] [id number] [address] [place] [address] Apr, [facility] [address] [id number] [address] [place] [address], [place] [address] Apr, [facility] [address] [id number] [address] [place] [address], [place] [address] Apr, [facility] [address] [id number] [address] [place] [address], [place] [address] Apr, [facility] [address] [id number] [address] [place] [address], [place] [address] Apr, [facility] [address] [id number] [address] [place] [address], [place] [address] Apr, [facility] [address] [id number] [address] [place] [address], [place] [address] Apr, [facility] [address] [id number] [address] [place] [address], [place] [address] Apr, [facility] [address] [id number] [address] [place] [address], [place] [address] Mar, [facility] [address] [id number] [address] [place] [address], [place] [address] 18 Mar, 2012 [facility] [address] [id number] [address] [place] [address] Mar, [facility] [address] [id number] [address] [place] [address] Mar, [facility] [address] [id number] [address] [place] [id number] Mar, [facility] [address] [id number] [address] [place] [id number] Mar, [facility] [address] [id number] [address] [place] [address], [place] [address] Mar, [facility] [address] [id number] [address] [place] [address], [place] [address] Jan, [facility] [address] [id number] [address] [place] [address] Jan, [facility] [address] [id number] [facility] [id number] Jan, [facility] [address] [id number] [facility] [id number] Jan, [facility] [address] [id number] [address] [place] [address], [place] [address] Jan, [facility] [address] [id number] [address] [place] [address], [place] [address] Jan, [facility] [address] [id number] [address] [place] [address], [place] [address] Jan, [facility] [address] [id number] [address] [place] [address], [place] [address] Jan, [facility] [address] [id number] [address] [place] [address], [place] [address] Jan, [facility] [address] [id number] [address] [place] [address], [place] [address] Jan, [facility] [address] [id number] [address] [place] [address], [place] [address] Jan, [facility] [address] [id number] [address] [place] [address], [place] [address] Dec, [facility] [address] [id number] [address] [place] [address], [place] [address] Dec, [facility] [address] [id number] [address] [place] [address], [place] [address] Dec, [facility] [address] [id number] [address] [place] [address], [place] [address] Dec, [facility] [address] [id number] [address] [place] [address], [place] [address] Dec, [facility] [address] [id number] [address] [place] [address], [place] [address] Dec, [facility] [address] [id number] [address] [place] [address] [place] [address] 18 Jan, 2012 [facility] [address] [id number] [address] [place] [address], [place] [address] 17 Jan, 2012 [facility] [address] [id number] [address] [place] [address], [place] [address] 16 Jan, 2012 [facility] [address] [id number] [address] [place] [address], [place] [address] 13 Jan, 2012 [facility] [address] [id number] [address] [place] [address], [place] [address] 13 Jan, 2012 [facility] [address] [id number] [address] [place] [address], [place] [address] 02 Jan, 2012 [facility] [address] [id number] [address] [place] [address], [place] [address] Dec, [facility] [address] [id number] [address] [place] [address], [place] [address] Dec, [facility] [address] [id number] [address] [place] [address], [place] [address] Dec, [facility] [address] [id number] [address] [place] [address], [place] [address] Dec, [facility] [address] [id number] [address] [place] [address], [place] [address] 15 Dec, 2011 [facility] [address] [id number] [address] [place] [address], [place] [address] Dec, [facility] [address] [id number] [address] [place] [address], [place] [address] Dec, [facility] [address] [id number] [address] [place] [address], [place] [address] October, [facility] [address] [id number] [address] [place] [address], [place] [address] October, [facility] [address] [id number] [address] [place] [address], [place] [address] October, [facility] [address] [id number] [address] [place] [address], [place] [address] October, [facility] [address] [id number] [address] [place] [address], [place] [address] October, [facility] [address] [id number] [address] [place] [address], [place] [address] October, [facility] [address] [id number] [address] [place] [address], [place] [address] Oct, [facility] [address] [id number] [address] [place] [address], [place] [address] 24 Oct, 2011 [facility] [address] [id number] [address] [place] [address], [place] [address] Oct, [facility] [address] [id number] [address] [place] [address], [place] [address] Oct, [facility] [address] [id number] [address] [place] [address], [place] [address] Oct, [facility] [address] [id number] [address] [place] [address], [place] [address] Oct, [facility] [address] [id number] [address] [place] [address], [place] [address] Oct, [facility] [address] [id number] [address] [place] [address], [place] [address] Aug, [facility] [address] [id number] [address] [place] [address], [place] [address] 29 Sep, 2011 [facility] [address] [id number] [address] [place] [address], [place] [address] 19 Sep, 2011 [facility] [address] [id number] [address] [place] [address], [place] [address] 13 Sep, 2011 [facility] [address] [id number] [address] [place] [address], [place] [address] 05 Sep, 2011 [facility] [address] [id number] [address] [place] [address], [place] [address] Aug, [facility] [address] [id number] [address] [place] [address], [place] [address] Aug, [facility] [address] [id number] [address] [place] [address], [place] [address] Aug, [facility] [address] [id number] [address] [place] [address], [place] [address] Aug, [facility] [address] [id number] [address] [place] [address], [place] [address] Jul, [facility] [address] [id number] [address] [place] [address], [place] [address] Jul, [facility] [address] [id number] [address] [place] [address], [place] [address] Jul, [facility] [address] [id number] [address] [place] [address], [place] [address] Jul, [facility] [address] [id number] [address] [place] [address], [place] [address] Jun, [facility] [address] [id number] [address] [place] [address], [place] [address] Jun, [facility] [address] [id number] [address] [place] [address], [place] [address] May, [facility] [address] [id number] [address] [place] [address], [place] [address] May, [facility] [address] [id number] [address] [place] [address], [place] [address] May, [facility] [address] [id number] [address] [place] [address], [place] [address] May, [facility] [address] [id number] [address] [place] [address], [place] [address] 07 May, 2011 [facility] [address] [id number] [address] [place] [address], [place] [address] Apr, [facility] [address] [id number] [address] [place] [address] Apr, [facility] [address] [id number] [address] [place] [address] Apr, [facility] [address] [id number] [address] [place] [address] Jan, [facility] [address] [id number] [address] [place] [address] Dec, [facility] [address] [id number] [address] [place] [address] October, [facility] [address] [id number] [address] [place] [address] Jun, [facility] [address] [id number] [address] [place] [address] Apr, [facility] [address] [id number] [address] [place] [address] Apr, [facility] [address] [id number] [address] [place] [address] Apr, [facility] [address] [id number] [address] [place] [id number] Jun, IMMUNIZATIONS No Known Immunizations SOCIAL HISTORY Never Assessed REASON FOR VISIT [facility] [place] OF CARE VITAL SIGNS MEDICATIONS Unknown Medications RESULTS No Results PROCEDURES No Known procedures INSTRUCTIONS MEDICATIONS ADMINISTERED No Known Medications MEDICAL (GENERAL) HISTORY Type Description Date Medical History Psychiatric disorder Medical History Hard of hearing Surgical History Neofibrous tumor Surgical History back injection Hospitalization History Intestinal blockage Hospitalization History past psychiatric hospitalizations x2
--- OUTSIDE RECORDS SUMMARY | 2020-01-25 12:48 | XMS REPORT ---
Author Author Ana Mayer Doctor Organization [facility] Address Unknown Phone Unavailable Care Team Providers Care Community Liaison Officer Name Role Phone Migration, Doctor Unavailable Unavailable PROBLEMS Type Condition ICD9-CM Code [id number] Code Onset Dates Condition S tatus SNOMED Code Problem Attention deficit R41.840 Active 76 160697 Problem Chronic hepatitis C without hepatic coma B18.2 Active 362128786 Problem Cannabis abuse F12.10 Active 04888 009 Problem Bipolar disorder, in partial remission, most rec ent episode hypomanic F31.71 Active 622691115 Problem Attention deficit hyperactivity disorder (ADHD), combi luciano type F90.2 Active 88045619 Problem Bipolar 1 disorder F31.9 Active 3 69900059 Problem H/O laminectomy Z98.89 Active 1616 28334 Problem Other chronic pain G89.29 Active 8 6066190 Problem Anxiety disorder, unspecified type F41.9 Active 848066376 ALLERGIES No Information ENCOUNTERS Encounter Location Date Diagnosis [facility] [address] [facility] [id number] [address] [place] [address] October, [facility] [address] [facility] [id number] [address] [place] [address] October, [facility] [address] [facility] [id number] [address] [place] [address] Aug, Bipolar disorder, in partial remission, most recent episode hypomanic F31.71 ; Attention deficit hyperactivity disorder (ADHD), combined type F90.2 and Anxiety disorder, unspecified type F41.9 [facility] [address] [facility] [id number] [address] [place] [address] Aug, [facility] [address] [facility] [id number] [address] [place] [address] Aug, Bipolar disorder, in partial remission, most recent episode hypomanic F31.71 [facility] [address] [id number] [address] [place] [address] Aug, [facility] [address] [id number] [address] [place] [address] Aug, Bipolar disorder, in partial remission, most recent episode hypomanic F31.71 [facility] [address] [id number] [address] [place] [address] Aug, Bipolar disorder, in partial remission, most recent episode hypomanic F31.71 ; Attention deficit hyperactivity disorder (ADHD), combined type F90.2 and Anxiety disorder, unspecified type F41.9 [facility] [address] [id number] [address] [place] [address] Aug, Low back pain M54.5 and Pain in left wrist M25.532 [facility] [address] [id number] [address] [place] [address] Aug, [facility] [address] [id number] [address] [place] [address] Jun, [facility] [address] [id number] [address] [place] [address] Apr, Bipolar disorder, in partial remission, most recent episode hypomanic F31.71 [facility] [address] [id number] [address] [place] [address] Apr, [facility] [address] [id number] [address] [place] [address] Apr, Bipolar disorder, in partial remission, most recent episode hypomanic F31.71 ; Attention deficit hyperactivity disorder (ADHD), combined type F90.2 ; Anxiety disorder, unspecified type F41.9 and Other superintendent terminal (current) 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 Z79.899 [facility] [address] [id number] [address] [place] [address] Apr, Bipolar disorder, in partial remission, most recent episode hypomanic F31.71 [facility] [address] [id number] [address] [place] [address] Apr, Bipolar disorder, in partial remission, most recent episode hypomanic F31.71 [facility] [address] [id number] [address] [place] [address] Mar, [facility] [address] [id number] [address] [place] [address] Mar, Bipolar disorder, in partial remission, most recent episode hypomanic F31.71 ; Encounter for immunization Z23 and Low back pain M54.5 [facility] [address] [id number] [address] [place] [address] Mar, Bipolar disorder, in partial remission, most recent episode hypomanic F31.71 [facility] [address] [id number] [address] [place] [address] Mar, Bipolar disorder, in partial remission, most recent episode hypomanic F31.71 [facility] [address] [id number] [address] [place] [address] Jan, Bipolar disorder, in partial remission, most recent episode hypomanic F31.71 [facility] [address] [id number] [address] [place] [address] Jan, Bipolar disorder, in partial remission, most recent episode hypomanic F31.71 [facility] [address] [id number] [address] [place] [address] Dec, Bipolar disorder, in partial remission, most recent episode hypomanic F31.71 [facility] [address] [id number] [address] [place] [address] Dec, Bipolar disorder, in partial remission, most recent episode hypomanic F31.71 ; Attention deficit hyperactivity disorder (ADHD), combined type F90.2 ; Anxiety disorder, unspecified type F41.9 and Other superintendent terminal (current) 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 Z79.899 [facility] [address] [id number] [address] [place] [address] Dec, Bipolar disorder, in partial remission, most recent episode hypomanic F31.71 [facility] [address] [facility] [id number] [address] [place] [address] Dec, Bipolar disorder, in partial remission, most recent episode hypomanic F31.71 [facility] [address] [facility] [id number] [address] [place] [address] October, Bipolar disorder, in partial remission, most recent episode hypomanic F31.71 [facility] [address] [facility] [id number] [address] [place] [address] October, [facility] [address] [facility] [id number] [address] [place] [address] October, [facility] [address] [facility] [id number] [address] [place] [address] Oct, Bipolar disorder, in partial remission, most recent episode hypomanic F31.71 ; Attention deficit hyperactivity disorder (ADHD), combined type F90.2 ; Anxiety disorder, unspecified type F41.9 and Encounter for drug screening Z02.83 [facility] [address] [facility] [id number] [address] [place] [address] Oct, Bipolar disorder, in partial remission, most recent episode hypomanic F31.71 [facility] [address] [facility] [id number] [address] [place] [address] Oct, Bipolar disorder, in partial remission, most recent episode hypomanic F31.71 [facility] [address] [facility] [id number] [address] [place] [address] Aug, Bipolar disorder, in partial remission, most recent episode hypomanic F31.71 [facility] [address] [facility] [id number] [address] [place] [address] Aug, Bipolar disorder, in partial remission, most recent episode hypomanic F31.71 [facility] [address] [facility] [id number] [address] [place] [address] Aug, Bipolar disorder, in partial remission, most recent episode hypomanic F31.71 [facility] [address] [facility] [id number] [address] [place] [address] Jul, Bipolar disorder, in partial remission, most recent episode hypomanic F31.71 ; Attention deficit hyperactivity disorder (ADHD), combined type F90.2 and Anxiety disorder, unspecified type F41.9 [facility] [address] [id number] [address] [place] [address] Jul, Bipolar disorder, in partial remission, most recent episode hypomanic F31.71 [facility] [address] [id number] [address] [place] [address] Jun, Bipolar disorder, in partial remission, most recent episode hypomanic F31.71 [facility] [address] [id number] [address] [place] [address] May, Bipolar disorder, in partial remission, most recent episode hypomanic F31.71 [facility] [address] [facility] [id number] [address] [place] [address] May, Bipolar disorder, in partial remission, most recent episode hypomanic F31.71 [facility] [address] [facility] [id number] [address] [place] [address] Apr, [facility] [address] [facility] [id number] [address] [place] [address] Apr, Bipolar disorder, in partial remission, most recent episode hypomanic F31.71 ; Attention deficit hyperactivity disorder (ADHD), combined type F90.2 ; Anxiety disorder, unspecified type F41.9 and Cannabis abuse F12.10 [facility] [address] [id number] [address] [place] [address] Apr, Attention deficit hyperactiv ity disorder (ADHD), combined type F90.2 [facility] [address] [id number] [address] [place] [address] Mar, Attention deficit hyperactiv ity disorder (ADHD), combined type F90.2 [facility] [address] [facility] [id number] [address] [place] [address] 14 Mar, 2017 Anxiety disorder, unspecifie d type F41.9 [place] [address] [facility] [id number] [address] [place] [address] Jan, Attention deficit hyperactiv ity disorder (ADHD), combined type F90.2 [facility] [address] [facility] [id number] [address] [place] [address] Jan, Anxiety disorder, unspecifie d type F41.9 [facility] [address] [facility] [id number] [address] [place] [address] Jan, Other chronic pain G89.29 ; Chronic hepatitis C without hepatic coma B18.2 and Bipolar 1 disorder F31.9 [facility] [address] [facility] [id number] [address] [place] [address] Dec, Attention deficit hyperactiv ity disorder (ADHD), combined type F90.2 [facility] [address] [facility] [id number] [address] [place] [address] Dec, Bipolar disorder, in partial remission, most recent episode hypomanic F31.71 ; Attention deficit hyperactivity disorder (ADHD), combined type F90.2 and Anxiety disorder, unspecified type F41.9 [facility] [address] [facility] [id number] [address] [place] [address] Dec, Bipolar disorder, in partial remission, most recent episode hypomanic F31.71 ; Attention deficit hyperactivity disorder (ADHD), combined type F90.2 and Anxiety disorder, unspecified type F41.9 [facility] [address] [facility] [id number] [address] [place] [address] Dec, Bipolar 1 disorder F31.9 and Attention deficit R41.840 [facility] [address] [facility] [id number] [address] [place] [address] Oct, Other chronic pain G89.29 ; Alopecia L65.9 and Screening, lipid Z13.220 [facility] [address] [facility] [id number] [address] [place] [address] Oct, [facility] [address] [place] [id number] [address] [place] [address] Aug, [facility] [address] [id number] [address] [place] [address] Aug, Eustachian tube dysfunction, right H69.81 ; Vertigo R42 and Other chronic pain G89.29 [facility] [address] [id number] [address] [place] [address] Aug, [facility] [address] [id number] [address] [place] [address] Jun, [facility] [address] [id number] [address] [place] [address] Jun, Low back pain M54.5 and Othe r chronic pain G89.29 [facility] [address] [id number] [address] [place] [address] Jun, [facility] [address] [id number] [address] [place] [address] May, [facility] [address] [id number] [address] [place] [address] Jan, [facility] [address] [id number] [address] [place] [address] Dec, [facility] [address] [id number] [address] [place] [address] Dec, [facility] [address] [id number] [address] [place] [address] Jun, [facility] [address] [id number] [address] [place] [address] Apr, Eustachian tube dysfunction, unspecified laterality H69.80 ; Hot flashes N95.1 and Encounter for immunization Z23 [facility] [address] [id number] [address] [place] [address] Jan, [facility] [address] [id number] [address] [place] [address] Jan, [facility] [address] [id number] [address] [place] [address] Jan, [facility] [address] [id number] [address] [place] [address] Jan, [facility] [address] [id number] [address] [place] [address] Jan, Encounter to establish care V65.8 ; Bipolar 1 disorder 296.7 ; Abdominal pain 789.00 ; Constipation 564.00 ; Hard of hearing 389.9 and Drug abuse 305.90 [facility] [address] [id number] [address] [place] [address] Dec, [facility] [address] [id number] [address] [place] [address] October, [facility] [address] [id number] [address] [place] [address] October, [facility] [address] [id number] [address] [place] [address] Oct, [facility] [address] [id number] [address] [place] [address] Oct, [facility] [address] [id number] [address] [place] [address] Oct, [facility] [address] [id number] [address] [place] [address] Aug, [facility] [address] [id number] [address] [place] [address] Aug, [facility] [address] [id number] [address] [place] [address] Aug, [facility] [address] [id number] [address] [place] [address] Aug, [facility] [address] [id number] [address] [place] [address] Aug, [facility] [address] [id number] [address] [place] [address], [place] [address] Aug, 2014 [facility] [address] [id number] [address] [place] [address], [place] [address] Aug, 2014 [facility] [address] [id number] [address] [place] [address], [place] [address] Aug, 2014 [facility] [address] [id number] [address] [place] [address], [place] [address] Aug, 2014 [facility] [address] [id number] [address] [place] [address], [place] [address] Aug, 2014 [facility] [address] [id number] [address] [place] [address], [place] [address] Aug, 2014 [facility] [address] [id number] [address] [place] [address], [place] [address] Aug, 2014 [facility] [address] [id number] [address] [place] [address], [place] [address] Aug, 2014 [facility] [address] [id number] [address] [place] [address], [place] [address] Aug, 2014 [facility] [address] [id number] [address] [place] [address], [place] [address] Aug, [facility] [address] [id number] [address] [place] [address], [place] [address] Jul, [facility] [address] [id number] [address] [place] [address], [place] [address] Jul, [facility] [address] [id number] [address] [place] [address], [place] [address] Jul, [facility] [address] [id number] [address] [place] [address], [place] [address] Jul, [facility] [address] [id number] [address] [place] [address], [place] [address] Jul, [facility] [address] [id number] [address] [place] [address], [place] [address] Jul, [facility] [address] [id number] [address] [place] [address], [place] [address] Jul, [facility] [address] [id number] [address] [place] [address], [place] [address] Jul, [facility] [address] [id number] [address] [place] [address], [place] [address] Jun, [facility] [address] [id number] [address] [place] [address], [place] [address] Jun, [facility] [address] [id number] [address] [place] [address], [place] [address] Jun, [facility] [address] [id number] [address] [place] [address], [place] [address] Jun, [facility] [address] [id number] [address] [place] [address], [place] [address] Jun, [facility] [address] [id number] [address] [place] [address], [place] [address] Jun, [facility] [address] [id number] [address] [place] [address], [place] [address] Jun, [facility] [address] [id number] [address] [place] [address], [place] [address] Jun, [facility] [address] [id number] [address] [place] [address], [place] [address] Jun, [facility] [address] [id number] [address] [place] [address], [place] [address] Jun, [facility] [address] [id number] [address] [place] [address], [place] [address] Jun, [facility] [address] [id number] [address] [place] [address], [place] [address] May, [facility] [address] [id number] [address] [place] [address], [place] [address] May, [facility] [address] [id number] [address] [place] [address], [place] [address] May, [facility] [address] [id number] [address] [place] [address], [place] [address] May, [facility] [address] [id number] [address] [place] [address], [place] [address] May, [facility] [address] [id number] [address] [place] [address], [place] [address] May, [facility] [address] [id number] [address] [place] [address], [place] [address] May, [facility] [address] [id number] [address] [place] [address], [place] [address] Apr, [facility] [address] [id number] [address] [place] [address], [place] [address] Apr, [facility] [address] [id number] [address] [place] [address], [place] [address] Apr, [facility] [address] [id number] [address] [place] [address], [place] [address] Apr, [facility] [address] [id number] [address] [place] [address], [place] [address] Apr, [facility] [address] [id number] [address] [place] [address], [place] [address] Apr, [facility] [address] [id number] [address] [place] [address], [place] [address] 29 Mar, 2014 [facility] [address] [id number] [address] [place] [address], [place] [address] 29 Mar, 2013 [facility] [address] [id number] [address] [place] [address], [place] [address] 10 Mar, 2014 [facility] [address] [id number] [address] [place] [address], [place] [address] Mar, 2013 [facility] [address] [id number] [address] [place] [address], [place] [address] Mar, [facility] [address] [id number] [address] [place] [address], [place] [address] Mar, [facility] [address] [id number] [address] [place] [address], [place] [address] Jan, [facility] [address] [id number] [address] [place] [address], [place] [address] Jan, [facility] [address] [id number] [address] [place] [address], [place] [address] Jan, [facility] [address] [id number] [address] [place] [address], [place] [address] Jan, [facility] [address] [id number] [address] [place] [address], [place] [address] Dec, [facility] [address] [id number] [address] [place] [address], [place] [address] Dec, [facility] [address] [id number] [address] [place] [address], [place] [address] Dec, [facility] [address] [id number] [address] [place] [address], [place] [address] Dec, [facility] [address] [id number] [address] [place] [address], [place] [address] Dec, [facility] [address] [id number] [address] [place] [address], [place] [address] Dec, [facility] [address] [id number] [address] [place] [address], [place] [address] Dec, [facility] [address] [id number] [address] [place] [address], [place] [address] Dec, [facility] [address] [id number] [address] [place] [address], [place] [address] Dec, [facility] [address] [id number] [address] [place] [address], [place] [address] Dec, [facility] [address] [id number] [address] [place] [address], [place] [address] Dec, [facility] [address] [id number] [address] [place] [address], [place] [address] Dec, [facility] [address] [id number] [address] [place] [address], [place] [address] October, [facility] [address] [id number] [address] [place] [address], [place] [address] October, [facility] [address] [id number] [address] [place] [address], [place] [address] October, [facility] [address] [id number] [address] [place] [address], [place] [address] October, [facility] [address] [id number] [address] [place] [address], [place] [address] October, [facility] [address] [id number] [address] [place] [address], [place] [address] October, [facility] [address] [id number] [address] [place] [address], [place] [address] Oct, [facility] [address] [id number] [address] [place] [address], [place] [address] Oct, [facility] [address] [id number] [address] [place] [address], [place] [address] Oct, [facility] [address] [id number] [address] [place] [address], [place] [address] Oct, [facility] [address] [id number] [address] [place] [address], [place] [address] Oct, [facility] [facility] [address] [id number] [address] [place] [address], [place] [address] Oct, [facility] [address] [id number] [address] [place] [address], [place] [address] Oct, [facility] [address] [id number] [address] [place] [address], [place] [address] Oct, [facility] [address] [id number] [address] [place] [address] Oct, [facility] [address] [id number] [address] [place] [address] Oct, [facility] [address] [id number] [address] [place] [address], [place] [address] Oct, [facility] [address] [id number] [address] [place] [address], [place] [address] Oct, [facility] [address] [id number] [address] [place] [address], [place] [address] Aug, [facility] [address] [id number] [address] [place] [address], [place] [address] Aug, [facility] [address] [id number] [address] [place] [address], [place] [address] Aug, [facility] [address] [id number] [address] [place] [address], [place] [address] Aug, [facility] [address] [id number] [address] [place] [address], [place] [address] Aug, [facility] [address] [id number] [address] [place] [address], [place] [address] Aug, [facility] [address] [id number] [address] [place] [address], [place] [address] Aug, [facility] [address] [id number] [address] [place] [address], [place] [address] Aug, [facility] [address] [id number] [address] [place] [address], [place] [address] Aug, [facility] [address] [id number] [address] [place] [address], [place] [address] Aug, [facility] [address] [id number] [address] [place] [address], [place] [address] Aug, [facility] [address] [id number] [address] [place] [address], [place] [address] Aug, [facility] [address] [id number] [address] [place] [address], [place] [address] Aug, [facility] [address] [id number] [address] [place] [address], [place] [address] 20 Aug, 2013 [facility] [address] [id number] [address] [place] [address], [place] [address] 14 Aug, 2013 [facility] [address] [id number] [address] [place] [address], [place] [address] 14 Aug, 2013 [facility] [address] [id number] [address] [place] [address], [place] [address] 14 Aug, 2013 [facility] [address] [id number] [address] [place] [address], [place] [address] 14 Aug, 2013 [facility] [address] [id number] [address] [place] [address], [place] [address] 07 Aug, 2013 [facility] [address] [id number] [address] [place] [address], [place] [address] 07 Aug, 2013 [facility] [address] [id number] [address] [place] [address], [place] [address] 06 Aug, 2013 [facility] [address] [id number] [address] [place] [address], [place] [address] 06 Aug, 2013 [facility] [address] [id number] [address] [place] [address], [place] [address] 04 Aug, 2013 [facility] [address] [id number] [address] [place] [address], [place] [address] 04 Aug, 2013 [facility] [address] [id number] [address] [place] [address], [place] [address] Aug, [facility] [address] [id number] [address] [place] [address], [place] [address] Jul, [facility] [address] [id number] [address] [place] [address], [place] [address] Jul, [facility] [address] [id number] [address] [place] [address], [place] [address] Jul, [facility] [address] [id number] [address] [place] [address], [place] [address] Jul, [facility] [address] [id number] [address] [place] [address], [place] [address] Jul, [facility] [address] [id number] [address] [place] [address], [place] [address] Jul, [facility] [address] [id number] [address] [place] [address], [place] [address] Jul, [facility] [address] [id number] [address] [place] [address], [place] [address] Jul, [facility] [address] [id number] [address] [place] [address], [place] [address] Jul, [facility] [address] [id number] [address] [place] [address], [place] [address] Jul, [facility] [address] [id number] [address] [place] [address], [place] [address] Jul, [facility] [address] [id number] [address] [place] [address], [place] [address] Jul, [facility] [address] [id number] [address] [place] [address], [place] [address] Jul, [facility] [address] [id number] [address] [place] [address], [place] [address] Jul, [facility] [address] [id number] [address] [place] [address], [place] [address] Jul, [facility] [address] [id number] [address] [place] [address], [place] [address] Jul, [facility] [address] [id number] [address] [place] [address], [place] [address] Jul, [facility] [address] [id number] [address] [place] [address], [place] [address] Jul, [facility] [address] [id number] [address] [place] [address], [place] [address] Jul, [facility] [address] [id number] [address] [place] [address], [place] [address] Jul, [facility] [address] [id number] [address] [place] [address], [place] [address] Jun, [facility] [address] [id number] [address] [place] [address], [place] [address] Jun, [facility] [address] [id number] [address] [place] [address], [place] [address] Jun, [facility] [address] [id number] [address] [place] [address], [place] [address] Jun, [facility] [address] [id number] [address] [place] [address], [place] [address] Jun, [facility] [address] [id number] [address] [place] [address], [place] [address] Jun, [facility] [address] [id number] [address] [place] [address], [place] [address] Jun, [facility] [address] [id number] [address] [place] [address], [place] [address] Jun, [facility] [address] [id number] [address] [place] [address], [place] [address] Jun, [facility] [address] [id number] [address] [place] [address], [place] [address] Jun, [facility] [address] [id number] [address] [place] [address], [place] [address] Jun, [facility] [address] [id number] [address] [place] [address], [place] [address] Jun, [facility] [address] [id number] [address] [place] [address], [place] [address] Jun, [facility] [address] [id number] [address] [place] [address], [place] [address] 20 Jun, 2013 [facility] [address] [id number] [address] [place] [address], [place] [address] 20 Jun, 2013 [facility] [address] [id number] [address] [place] [address], [place] [address] 18 Jun, 2013 [facility] [address] [id number] [address] [place] [address], [place] [address] 18 Jun, 2013 [facility] [address] [id number] [address] [place] [address], [place] [address] 17 Jun, 2013 [facility] [address] [id number] [address] [place] [address], [place] [address] 17 Jun, 2013 [facility] [address] [id number] [address] [place] [address], [place] [address] 13 Jun, 2013 [facility] [address] [id number] [address] [place] [address], [place] [address] 12 Jun, 2013 [facility] [address] [id number] [address] [place] [address], [place] [address] 12 Jun, 2013 [facility] [address] [id number] [address] [place] [address], [place] [address] 09 Jun, 2013 [facility] [address] [id number] [address] [place] [address], [place] [address] 05 Jun, 2013 [facility] [address] [id number] [address] [place] [address], [place] [address] 05 Jun, 2013 [facility] [address] [id number] [address] [place] [address], [place] [address] 04 Jun, 2013 [facility] [address] [id number] [address] [place] [address], [place] [address] 04 Jun, 2013 [facility] [address] [id number] [address] [place] [address], [place] [address] 17 May, 2013 [facility] [address] [id number] [address] [place] [address], [place] [address] May, [facility] [address] [id number] [address] [place] [address], [place] [address] May, [facility] [address] [id number] [address] [place] [address], [place] [address] May, [facility] [address] [id number] [address] [place] [address], [place] [address] May, [facility] [address] [id number] [address] [place] [address], [place] [address] May, [facility] [address] [id number] [address] [place] [address], [place] [address] Apr, [facility] [address] [id number] [address] [place] [address], [place] [address] Apr, [facility] [address] [id number] [address] [place] [address], [place] [address] Apr, [facility] [address] [id number] [address] [place] [address], [place] [address] Apr, [facility] [address] [id number] [address] [place] [address], [place] [address] Apr, [facility] [address] [id number] [address] [place] [address], [place] [address] Apr, [facility] [address] [id number] [address] [place] [address], [place] [address] Apr, [facility] [address] [id number] [address] [place] [address], [place] [address] Apr, [facility] [address] [id number] [address] [place] [address], [place] [address] Mar, [facility] [address] [id number] [address] [place] [address], [place] [address] 24 Mar, 2013 [facility] [address] [id number] [address] [place] [address], [place] [address] 17 Mar, 2013 [facility] [address] [id number] [address] [place] [address] [place] [address] 17 Mar, 2012 [facility] [address] [id number] [address] [place] [address], [place] [address] 11 Mar, 2012 [facility] [address] [id number] [address] [place] [address], [place] [address] 10 Mar, 2012 [facility] [address] [id number] [address] [place] [address], [place] [address] 05 Mar, 2012 [facility] [address] [id number] [address] [place] [address], [place] [address] 04 Mar, 2013 [facility] [address] [id number] [address] [place] [address], [place] [address] 20 Jan, 2013 [facility] [address] [id number] [address] [place] [address], [place] [address] Jan, [facility] [address] [id number] [address] [place] [address], [place] [address] 14 Jan, 2013 [facility] [address] [id number] [address] [place] [address], [place] [address] Jan, [facility] [address] [id number] [address] [place] [address], [place] [address] Jan, [facility] [address] [id number] [address] [place] [address], [place] [address] Jan, [facility] [address] [id number] [address] [place] [address], [place] [address] Dec, [facility] [address] [id number] [address] [place] [address], [place] [address] Dec, [facility] [address] [id number] [address] [place] [address], [place] [address] Dec, [facility] [address] [id number] [address] [place] [address], [place] [address] Dec, [facility] [address] [id number] [address] [place] [address], [place] [address] Dec, [facility] [address] [id number] [address] [place] [address], [place] [address] 17 Dec, 2012 [facility] [address] [id number] [address] [place] [address], [place] [address] 16 Dec, 2012 [facility] [address] [id number] [address] [place] [address], [place] [address] 16 Dec, 2012 [facility] [address] [id number] [address] [place] [address], [place] [address] 15 Dec, 2012 [facility] [address] [id number] [address] [place] [address], [place] [address] 10 Dec, 2012 [facility] [address] [id number] [address] [place] [address], [place] [address] 28 Dec, 2012 [facility] [address] [id number] [address] [place] [address], [place] [address] Dec, [facility] [address] [id number] [address] [place] [address], [place] [address] Dec, [facility] [address] [id number] [address] [place] [address], [place] [address] Dec, [facility] [address] [id number] [address] [place] [address], [place] [address] Dec, [facility] [address] [id number] [address] [place] [address], [place] [address] Dec, [facility] [address] [id number] [address] [place] [address], [place] [address] October, [facility] [address] [id number] [address] [place] [address], [place] [address] October, [facility] [address] [id number] [address] [place] [address], [place] [address] October, [facility] [address] [id number] [address] [place] [address], [place] [address] October, [facility] [address] [id number] [address] [place] [address], [place] [address] October, [facility] [address] [id number] [address] [place] [address], [place] [address] October, [facility] [address] [id number] [address] [place] [address], [place] [address] October, [facility] [address] [id number] [address] [place] [address], [place] [address] Oct, [facility] [address] [id number] [address] [place] [address], [place] [address] Oct, [facility] [address] [id number] [address] [place] [address], [place] [address] Oct, [facility] [address] [id number] [address] [place] [address], [place] [address] Oct, [facility] [address] [id number] [address] [place] [address], [place] [address] Oct, [facility] [address] [id number] [address] [place] [address], [place] [address] Oct, [facility] [address] [id number] [address] [place] [address], [place] [address] Oct, [facility] [address] [id number] [address] [place] [address], [place] [address] Oct, [facility] [address] [id number] [address] [place] [address], [place] [address] Oct, [facility] [address] [id number] [address] [place] [address], [place] [address] Oct, [facility] [address] [id number] [address] [place] [address], [place] [address] Oct, [facility] [address] [id number] [address] [place] [address], [place] [address] Oct, [facility] [address] [id number] [address] [place] [address], [place] [address] Aug, [facility] [address] [id number] [address] [place] [address], [place] [address] 20 Aug, 2012 [facility] [address] [id number] [address] [place] [address], [place] [address] 12 Aug, 2012 [facility] [address] [id number] [address] [place] [address], [place] [address] 06 Aug, 2012 [facility] [address] [id number] [address] [place] [address], [place] [address] 05 Aug, 2012 [facility] [address] [id number] [address] [place] [address], [place] [address] 05 Aug, 2012 [facility] [address] [id number] [address] [place] [address], [place] [address] 20 Aug, 2012 [facility] [address] [id number] [address] [place] [address], [place] [id number] 14 Aug, 2012 [facility] [address] [id number] [address] [place] [address], [place] [address] 12 Aug, 2012 [facility] [address] [id number] [address] [place] [address], [place] [address] Aug, [facility] [address] [id number] [address] [place] [address], [place] [address] Jul, [facility] [address] [id number] [address] [place] [address], [place] [id number] 15 Jul, 2012 [facility] [address] [id number] [address] [place] [address], [place] [address] Jul, [facility] [address] [id number] [address] [place] [address], [place] [address] Jun, [facility] [address] [id number] [address] [place] [address], [place] [address] Jun, [facility] [address] [id number] [address] [place] [address], [place] [address] Jun, [facility] [address] [id number] [address] [place] [address], [place] [address] Jun, [facility] [address] [id number] [address] [place] [address], [place] [id number] 18 Jun, 2012 [facility] [address] [id number] [address] [place] [address], [place] [address] 14 Jun, 2012 [facility] [address] [id number] [address] [place] [address], [place] [id number] 14 Jun, 2012 [facility] [address] [id number] [address] [place] [address], [place] [address] 13 Jun, 2012 [facility] [address] [id number] [address] [place] [address], [place] [address] 13 Jun, 2012 [facility] [address] [id number] [address] [place] [address], [place] [address] 11 Jun, 2012 [facility] [address] [id number] [address] [place] [address], [place] [address] 11 Jun, 2012 [facility] [address] [id number] [address] [place] [address], [place] [address] 11 Jun, 2012 [facility] [address] [id number] [address] [place] [address], [place] [address] 11 Jun, 2012 [facility] [address] [id number] [address] [place] [address], [place] [id number] 07 Jun, 2012 [facility] [address] [id number] [address] [place] [address], [place] [address] 07 Jun, 2012 [facility] [address] [id number] [address] [place] [address], [place] [address] 06 Jun, 2012 [facility] [address] [id number] [address] [place] [address], [place] [address] Jun, [facility] [address] [id number] [address] [place] [address], [place] [address] 06 Jun, 2012 [facility] [address] [id number] [address] [place] [address], [place] [address] 06 Jun, 2012 [facility] [address] [id number] [address] [place] [address], [place] [id number] 05 Jun, 2012 [facility] [address] [id number] [address] [place] [address], [place] [address] Jun, [facility] [address] [id number] [address] [place] [address], [place] [address] Jun, [facility] [address] [id number] [address] [place] [address], [place] [address] Jun, [facility] [address] [id number] [address] [place] [address], [place] [address] May, [facility] [address] [id number] [address] [place] [address], [place] [address] May, [facility] [address] [id number] [address] [place] [address], [place] [address] May, [facility] [address] [id number] [address] [place] [address], [place] [address] May, [facility] [address] [id number] [address] [place] [address], [place] [address] May, [facility] [address] [id number] [address] [place] [address], [place] [address] May, [facility] [address] [id number] [address] [place] [address], [place] [address] May, [facility] [address] [id number] [address] [place] [address], [place] [address] May, [facility] [address] [id number] [address] [place] [id number] Apr, [facility] [address] [id number] [address] [place] [address], [place] [address] Apr, [facility] [address] [id number] [address] [place] [address], [place] [address] Apr, [facility] [address] [id number] [address] [place] [id number] 16 Apr, 2012 [facility] [address] [id number] [address] [place] [address], [place] [address] 16 Apr, 2012 [facility] [address] [id number] [address] [place] [address], [place] [address] Apr, [facility] [address] [id number] [address] [place] [address], [place] [address] Apr, [facility] [address] [id number] [address] [place] [address], [place] [address] Apr, [facility] [address] [id number] [address] [place] [address], [place] [address] Apr, [facility] [address] [id number] [address] [place] [address], [place] [address] Apr, [facility] [address] [id number] [address] [place] [address], [place] [address] Apr, [facility] [address] [id number] [address] [place] [address], [place] [address] Apr, [facility] [address] [address] [id number] [address] [place] [address], [place] [address] 19 Mar, 2012 [facility] [address] [id number] [address] [place] [id number] 18 Mar, 2012 [facility] [address] [id number] [address] [place] [address], [place] [address] 12 Mar, 2012 [facility] [address] [id number] [address] [place] [address], [place] [address] 12 Mar, 2012 [facility] [address] [id number] [address] [place] [id number] Mar, [facility] [address] [id number] [address] [place] [id number] Mar, [facility] [address] [id number] [address] [place] [address], [place] [address] 04 Mar, 2012 [facility] [address] [id number] [address] [place] [id number] Jan, [facility] [address] [id number] [address] [place] [address], [place] [address] Jan, [facility] [address] [id number] [address] [place] [address], [place] [id number] Jan, [facility] [address] [id number] [address] [id number] Jan, [facility] [address] [id number] [address] [place] [address], [place] [address] Jan, [facility] [address] [id number] [address] [place] [address], [place] [address] Jan, [facility] [address] [id number] [address] [place] [address], [place] [address] Jan, [facility] [address] [id number] [address] [place] [address], [place] [address] Jan, [facility] [address] [id number] [address] [place] [address], [place] [address] Jan, [facility] [address] [id number] [address] [place] [address], [place] [address] Jan, [facility] [address] [id number] [address] [place] [address], [place] [address] Jan, [facility] [address] [id number] [address] [place] [address], [place] [address] Dec, [facility] [address] [id number] [address] [place] [address], [place] [address] Dec, [facility] [address] [id number] [address] [place] [address], [place] [address] Dec, [facility] [address] [id number] [address] [place] [address], [place] [address] Dec, [facility] [address] [id number] [address] [place] [address], [place] [address] Dec, [facility] [address] [id number] [address] [place] [address] [place] [address] 19 Jan, 2012 [facility] [address] [id number] [address] [place] [address], [place] [address] 18 Jan, 2012 [facility] [address] [id number] [address] [place] [address], [place] [address] 17 Jan, 2012 [facility] [address] [id number] [address] [place] [address], [place] [phone] 16 Jan, 2012 [facility] [address] [id number] [address] [place] [address], [place] [address] 13 Jan, 2012 [facility] [address] [id number] [address] [place] [address], [place] [address] 13 Jan, 2012 [facility] [address] [id number] [address] [place] [address], [place] [address] 02 Jan, 2012 [facility] [address] [id number] [address] [place] [address], [place] [address] Dec, [facility] [address] [id number] [address] [place] [address], [place] [address] Dec, [facility] [address] [id number] [address] [place] [address], [place] [address] Dec, [facility] [address] [id number] [address] [place] [address], [place] [address] Dec, [facility] [address] [id number] [address] [place] [address], [place] [address] 15 Dec, 2011 [facility] [address] [id number] [address] [place] [address], [place] [address] Dec, [facility] [address] [id number] [address] [place] [address], [place] [address] 05 Dec, 2011 [facility] [address] [id number] [address] [place] [address], [place] [address] October, [facility] [address] [id number] [address] [place] [address], [place] [address] October, [facility] [address] [id number] [address] [place] [address], [place] [address] October, [facility] [address] [id number] [address] [place] [address], [place] [address] October, [facility] [address] [id number] [address] [place] [address], [place] [address] October, [facility] [address] [id number] [address] [place] [address], [place] [address] October, [facility] [address] [id number] [address] [place] [address], [place] [address] Oct, [facility] [address] [id number] [address] [place] [address], [place] [address] 24 Oct, 2011 [facility] [address] [id number] [address] [place] [address], [place] [address] Oct, [facility] [address] [id number] [address] [place] [address], [place] [address] Oct, [facility] [address] [id number] [address] [place] [address], [place] [address] Oct, [facility] [address] [id number] [address] [place] [address], [place] [address] Oct, [facility] [address] [id number] [address] [place] [address], [place] [address] Oct, [facility] [address] [id number] [address] [place] [address], [place] [address] 29 Sep, 2011 [facility] [address] [id number] [address] [place] [address], [place] [address] 29 Sep, 2011 [facility] [address] [id number] [address] [place] [address], [place] [address] 19 Sep, 2011 [facility] [address] [id number] [address] [place] [address], [place] [address] 13 Sep, 2011 [facility] [address] [id number] [address] [place] [address], [place] [address] Aug, [facility] [address] [id number] [address] [place] [address], [place] [address] Aug, [facility] [address] [id number] [address] [place] [address], [place] [address] 27 Aug, 2011 [facility] [address] [id number] [address] [place] [address], [place] [address] Aug, [facility] [address] [id number] [address] [place] [address], [place] [address] 08 Aug, 2011 [facility] [address] [id number] [address] [place] [address], [place] [address] Jul, [facility] [address] [id number] [address] [place] [address], [place] [address] Jul, [facility] [address] [id number] [address] [place] [address], [place] [address] Jul, [facility] [address] [id number] [address] [place] [address], [place] [id number] Jul, [facility] [address] [id number] [address] [place] [address], [place] [address] Jun, [facility] [address] [id number] [address] [place] [address], [place] [address] Jun, [facility] [address] [id number] [address] [place] [address], [place] [address] May, [facility] [address] [id number] [address] [place] [address], [place] [address] May, [facility] [address] [id number] [address] [place] [address], [place] [address] May, [facility] [address] [id number] [address] [place] [address], [place] [address] May, [facility] [address] [id number] [address] [place] [address], [place] [address] May, [facility] [address] [id number] [address] [place] [address] Apr, [facility] [address] [id number] [address] [place] [phone] Apr, [facility] [address] [id number] [address] [place] [address] Apr, [facility] [address] [id number] [address] [place] [address] Jan, [facility] [address] [id number] [address] [place] [address] Dec, [facility] [address] [id number] [address] [place] [phone] October, [facility] [address] [id number] [address] [place] [address] Jun, [facility] [address] [id number] [address] [place] [address] Apr, [facility] [address] [id number] [address] [place] [address] Apr, [facility] [address] [id number] [address] [place] [address] Apr, [facility] [address] [id number] [address] [place] [address] Jun, IMMUNIZATIONS No Known Immunizations SOCIAL HISTORY Never Assessed REASON FOR VISIT [facility] VITAL SIGNS MEDICATIONS Unknown Medications RESULTS No Results PROCEDURES No Known procedures INSTRUCTIONS MEDICATIONS ADMINISTERED No Known Medications MEDICAL (GENERAL) HISTORY Type Description Date Medical History Psychiatric disorder Medical History Hard of hearing Surgical History Neofibrous tumor Surgical History back injection Hospitalization History Intestinal blockage Hospitalization History past psychiatric hospitalizations x2
--- OUTSIDE RECORDS SUMMARY | 2020-01-25 12:49 | XMS REPORT ---
Author Author Ana Mayer Doctor Organization [facility] Address Unknown Phone Unavailable Care Team Providers Care Health Facilities Surveyor Name Role Phone Migration, Doctor Unavailable Unavailable PROBLEMS Type Condition ICD9-CM Code BBD13-VH Code Onset Dates Condition S tatus SNOMED Code Problem Attention deficit R41.840 Active 76 381235 Problem Chronic hepatitis C without hepatic coma B18.2 Active 019753481 Problem Cannabis abuse F12.10 Active 45740 009 Problem Bipolar disorder, in partial remission, most rec ent episode hypomanic F31.71 Active 631813792 Problem Attention deficit hyperactivity disorder (ADHD), combi luciano type F90.2 Active 96967420 Problem Bipolar 1 disorder F31.9 Active 3 94661148 Problem H/O laminectomy Z98.89 Active 1616 17107 Problem Other chronic pain G89.29 Active 8 1422180 Problem Anxiety disorder, unspecified type F41.9 Active 034234127 ALLERGIES No Information ENCOUNTERS Encounter Location Date Diagnosis [facility] [address] [facility] [id number] [address] [place] [phone] October, [facility] [address] [facility] [id number] [address] [phone] October, [facility] [address] [facility] [id number] [address] [place] [phone] Aug, Bipolar disorder, in partial remission, most recent episode hypomanic F31.71 ; Attention deficit hyperactivity disorder (ADHD), combined type F90.2 and Anxiety disorder, unspecified type F41.9 [facility] [address] [facility] [id number] [address] [place] [phone] Aug, [facility] [address] [facility] [id number] [address] [place] [id number] Aug, Bipolar disorder, in partial remission, most recent episode hypomanic F31.71 [facility] [address] [id number] [address] [place] [phone] Aug, [facility] [address] [id number] [address] [place] [id number] Aug, Bipolar disorder, in partial remission, most recent episode hypomanic F31.71 [facility] [address] [id number] [address] [place] [phone] Aug, Bipolar disorder, in partial remission, most recent episode hypomanic F31.71 ; Attention deficit hyperactivity disorder (ADHD), combined type F90.2 and Anxiety disorder, unspecified type F41.9 [facility] [address] [id number] [address] [place] [phone] Aug, Low back pain M54.5 and Pain in left wrist M25.532 [facility] [address] [id number] [address] [id number] Aug, [facility] [address] [id number] [address] [phone] Jun, [facility] [address] [id number] [address] [address] Apr, Bipolar disorder, in partial remission, most recent episode hypomanic F31.71 [facility] [address] [id number] [address] [id number] Apr, [facility] [address] [id number] [address] [place] [phone] Apr, Bipolar disorder, in partial remission, most recent episode hypomanic F31.71 ; Attention deficit hyperactivity disorder (ADHD), combined type F90.2 ; Anxiety disorder, unspecified type F41.9 and 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 [facility] [address] [id number] [address] [place] [id number] Apr, Bipolar disorder, in partial remission, most recent episode hypomanic F31.71 [facility] [address] [id number] [address] [place] [id number] Apr, Bipolar disorder, in partial remission, most recent episode hypomanic F31.71 [facility] [address] [id number] [address] [phone] Mar, [facility] [address] [id number] [address] [place] [phone] Mar, Bipolar disorder, in partial remission, most recent episode hypomanic F31.71 ; Encounter for immunization Z23 and Low back pain M54.5 [facility] [address] [id number] [address] [place] [phone] Mar, Bipolar disorder, in partial remission, most recent episode hypomanic F31.71 [facility] [address] [id number] [address] [place] [phone] Mar, Bipolar disorder, in partial remission, most recent episode hypomanic F31.71 [facility] [address] [id number] [address] [place] [address] Jan, Bipolar disorder, in partial remission, most recent episode hypomanic F31.71 [facility] [address] [id number] [address] [place] [phone] Jan, Bipolar disorder, in partial remission, most recent episode hypomanic F31.71 [facility] [address] [id number] [address] [place] [address] Dec, Bipolar disorder, in partial remission, most recent episode hypomanic F31.71 [facility] [address] [id number] [address] [place] [phone] Dec, Bipolar disorder, in partial remission, most recent episode hypomanic F31.71 ; Attention deficit hyperactivity disorder (ADHD), combined type F90.2 ; Anxiety disorder, unspecified type F41.9 and 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 [facility] [address] [id number] [address] [place] [address] Dec, Bipolar disorder, in partial remission, most recent episode hypomanic F31.71 [facility] [address] [facility] [id number] [address] [place] [phone] Dec, Bipolar disorder, in partial remission, most recent episode hypomanic F31.71 [facility] [address] [facility] [id number] [address] [place] [address] October, Bipolar disorder, in partial remission, most recent episode hypomanic F31.71 [facility] [address] [facility] [id number] [address] [place] [phone] October, [facility] [address] [facility] [id number] [address] [phone] October, [facility] [address] [facility] [id number] [address] [place] [address] Oct, Bipolar disorder, in partial remission, most recent episode hypomanic F31.71 ; Attention deficit hyperactivity disorder (ADHD), combined type F90.2 ; Anxiety disorder, unspecified type F41.9 and Encounter for drug screening Z02.83 [facility] [address] [facility] [id number] [address] [place] [phone] Oct, Bipolar disorder, in partial remission, most recent episode hypomanic F31.71 [facility] [address] [facility] [id number] [address] [place] [phone] Oct, Bipolar disorder, in partial remission, most recent episode hypomanic F31.71 [facility] [address] [facility] [id number] [address] [place] [phone] Aug, Bipolar disorder, in partial remission, most recent episode hypomanic F31.71 [facility] [address] [facility] [id number] [address] [place] [id number] Aug, Bipolar disorder, in partial remission, most recent episode hypomanic F31.71 [facility] [address] [facility] [id number] [address] [place] [phone] Aug, Bipolar disorder, in partial remission, most recent episode hypomanic F31.71 [facility] [address] [facility] [id number] [address] [place] [phone] Jul, Bipolar disorder, in partial remission, most recent episode hypomanic F31.71 ; Attention deficit hyperactivity disorder (ADHD), combined type F90.2 and Anxiety disorder, unspecified type F41.9 [facility] [address] [id number] [address] [place] [phone] Jul, Bipolar disorder, in partial remission, most recent episode hypomanic F31.71 [facility] [address] [id number] [address] [place] [id number] Jun, Bipolar disorder, in partial remission, most recent episode hypomanic F31.71 [facility] [address] [id number] [address] [place] [id number] May, Bipolar disorder, in partial remission, most recent episode hypomanic F31.71 [facility] [address] [facility] [id number] [address] [place] [phone] May, Bipolar disorder, in partial remission, most recent episode hypomanic F31.71 [facility] [address] [facility] [id number] [address] [place] [phone] Apr, [facility] [address] [facility] [id number] [address] [place] [id number] Apr, Bipolar disorder, in partial remission, most recent episode hypomanic F31.71 ; Attention deficit hyperactivity disorder (ADHD), combined type F90.2 ; Anxiety disorder, unspecified type F41.9 and Cannabis abuse F12.10 [facility] [address] [id number] [address] [place] [phone] Apr, Attention deficit hyperactiv ity disorder (ADHD), combined type F90.2 [facility] [address] [id number] [address] [place] [phone] Mar, Attention deficit hyperactiv ity disorder (ADHD), combined type F90.2 [facility] [address] [facility] [id number] [address] [place] [phone] 14 Mar, 2017 Anxiety disorder, unspecifie d type F41.9 [facility] [id number] [facility] [id number] [address] [place] [phone] Jan, Attention deficit hyperactiv ity disorder (ADHD), combined type F90.2 [facility] [address] [facility] [id number] [address] [place] [phone] Jan, Anxiety disorder, unspecifie d type F41.9 [facility] [address] [facility] [id number] [address] [place] [phone] Jan, Other chronic pain G89.29 ; Chronic hepatitis C without hepatic coma B18.2 and Bipolar 1 disorder F31.9 [facility] [address] [facility] [id number] [address] [place] [id number] Dec, Attention deficit hyperactiv ity disorder (ADHD), combined type F90.2 [facility] [address] [facility] [id number] [address] [place] [phone] Dec, Bipolar disorder, in partial remission, most recent episode hypomanic F31.71 ; Attention deficit hyperactivity disorder (ADHD), combined type F90.2 and Anxiety disorder, unspecified type F41.9 [facility] [address] [facility] [id number] [address] [place] [phone] Dec, Bipolar disorder, in partial remission, most recent episode hypomanic F31.71 ; Attention deficit hyperactivity disorder (ADHD), combined type F90.2 and Anxiety disorder, unspecified type F41.9 [facility] [address] [facility] [id number] [address] [place] [phone] Dec, Bipolar 1 disorder F31.9 and Attention deficit R41.840 [facility] [address] [facility] [id number] [address] [place] [phone] Oct, Other chronic pain G89.29 ; Alopecia L65.9 and Screening, lipid Z13.220 [facility] [address] [facility] [id number] [address] [place] [phone] Oct, [facility] [address] [place] [id number] [address] [place] [phone] Aug, [facility] [address] [id number] [address] [place] [id number] Aug, Eustachian tube dysfunction, right H69.81 ; Vertigo R42 and Other chronic pain G89.29 [facility] [address] [id number] [address] [phone] Aug, [facility] [address] [id number] [address] [place] [phone] Jun, [facility] [address] [id number] [address] [id number] Jun, Low back pain M54.5 and Othe r chronic pain G89.29 [facility] [address] [id number] [address] [place] [phone] Jun, [facility] [address] [id number] [address] [place] [id number] May, [facility] [address] [id number] [address] [place] [phone] Jan, [facility] [address] [id number] [address] [place] [phone] Dec, [facility] [address] [id number] [address] [place] [phone] Dec, [facility] [address] [id number] [address] [place] [phone] Jun, [facility] [address] [id number] [address] [place] [phone] Apr, Eustachian tube dysfunction, unspecified laterality H69.80 ; Hot flashes N95.1 and Encounter for immunization Z23 [facility] [address] [id number] [address] [place] [phone] Jan, [facility] [address] [id number] [address] [place] [phone] Jan, [facility] [address] [id number] [address] [phone] Jan, [facility] [place] [address] [id number] [address] [place] [phone] Jan, [facility] [place] [address] [id number] [address] [place] [id number] Jan, Encounter to establish care V65.8 ; Bipolar 1 disorder 296.7 ; Abdominal pain 789.00 ; Constipation 564.00 ; Hard of hearing 389.9 and Drug abuse 305.90 [facility] [place] [address] [id number] [address] [place] [phone] Dec, [facility] [place] [address] [id number] [address] [place] [phone] October, [facility] [place] [address] [id number] [address] [place] [phone] October, [facility] [place] [address] [id number] [address] [place] [phone] Oct, [facility] [place] [address] [id number] [address] [phone] Oct, [facility] [place] [address] [id number] [address] [phone] Oct, [facility] [place] [address] [id number] [address] [place] [phone] Aug, [facility] [address] [id number] [address] [place] [phone] Aug, [facility] [address] [id number] [address] [place] [phone] Aug, [facility] [place] [address] [id number] [address] [place] [phone] Aug, [facility] [place] [address] [id number] [address] [place] [phone] Aug, [facility] [place] [address] [id number] [address] [place] [address], [place] [address] Aug, 2014 [facility] [address] [id number] [address] [place] [address], [place] [address] Aug, 2014 [facility] [address] [id number] [address] [place] [address], [place] [address] Aug, 2014 [facility] [address] [id number] [address] [place] [address], [place] [address] Aug, 2014 [facility] [address] [id number] [address] [place] [address], [place] [address] Aug, 2014 [facility] [address] [id number] [address] [place] [address], [place] [address] Aug, 2014 [facility] [address] [id number] [address] [place] [address], [place] [address] Aug, 2014 [facility] [address] [id number] [address] [place] [address], [place] [address] Aug, 2014 [facility] [address] [id number] [address] [place] [address], [place] [address] Aug, 2014 [facility] [address] [id number] [address] [place] [address], [place] [address] Aug, [facility] [address] [id number] [address] [place] [address], [place] [address] Jul, [facility] [address] [id number] [address] [place] [address], [place] [address] Jul, [facility] [address] [id number] [address] [place] [address], [place] [address] Jul, [facility] [address] [id number] [address] [place] [address], [place] [address] Jul, [facility] [address] [id number] [address] [place] [address], [place] [address] Jul, [facility] [address] [id number] [address] [place] [address], [place] [address] Jul, [facility] [address] [id number] [address] [place] [address], [place] [address] Jul, [facility] [address] [id number] [address] [place] [address], [place] [address] Jul, [facility] [address] [id number] [address] [place] [address], [place] [address] Jun, [facility] [address] [id number] [address] [place] [address], [place] [address] Jun, [facility] [address] [id number] [address] [place] [address], [place] [address] Jun, [facility] [address] [id number] [address] [place] [address], [place] [address] Jun, [facility] [address] [id number] [address] [place] [address], [place] [address] Jun, [facility] [address] [id number] [address] [place] [address], [place] [address] Jun, [facility] [address] [id number] [address] [place] [address], [place] [address] Jun, [facility] [address] [id number] [address] [place] [address], [place] [address] Jun, [facility] [address] [id number] [address] [place] [address], [place] [address] Jun, [facility] [address] [id number] [address] [place] [address], [place] [address] Jun, [facility] [address] [id number] [address] [place] [address], [place] [address] Jun, [facility] [address] [id number] [address] [place] [address], [place] [address] May, [facility] [address] [id number] [address] [place] [address], [place] [address] May, [facility] [address] [id number] [address] [place] [address], [place] [address] May, [facility] [address] [id number] [address] [place] [address], [place] [address] May, [facility] [address] [id number] [address] [place] [address], [place] [address] May, [facility] [address] [id number] [address] [place] [address], [place] [address] May, [facility] [address] [id number] [address] [place] [address], [place] [address] May, [facility] [address] [id number] [address] [place] [address], [place] [address] Apr, [facility] [address] [id number] [address] [place] [address], [place] [address] Apr, [facility] [address] [id number] [address] [place] [address], [place] [address] Apr, [facility] [address] [id number] [address] [place] [address], [place] [address] Apr, [facility] [address] [id number] [address] [place] [address], [place] [address] Apr, [facility] [address] [id number] [address] [place] [address], [place] [address] Apr, [facility] [address] [id number] [address] [place] [address], [place] [address] 29 Mar, 2014 [facility] [address] [id number] [address] [place] [address], [place] [address] 29 Mar, 2013 [facility] [address] [id number] [address] [place] [address], [place] [address] 10 Mar, 2014 [facility] [address] [id number] [address] [place] [address], [place] [address] Mar, 2013 [facility] [address] [id number] [address] [place] [address], [place] [address] Mar, [facility] [address] [id number] [address] [place] [address], [place] [address] Mar, [facility] [address] [id number] [address] [place] [address], [place] [address] Jan, [facility] [address] [id number] [address] [place] [address], [place] [address] Jan, [facility] [address] [id number] [address] [place] [address], [place] [address] Jan, [facility] [address] [id number] [address] [place] [address], [place] [address] Jan, [facility] [address] [id number] [address] [place] [address], [place] [address] Dec, [facility] [address] [id number] [address] [place] [address], [place] [address] Dec, [facility] [address] [id number] [address] [place] [address], [place] [address] Dec, [facility] [address] [id number] [address] [place] [address], [place] [address] Dec, [facility] [address] [id number] [address] [place] [address], [place] [address] Dec, [facility] [address] [id number] [address] [place] [address], [place] [address] Dec, [facility] [address] [id number] [address] [place] [address], [place] [address] Dec, [facility] [address] [id number] [address] [place] [address], [place] [address] Dec, [facility] [address] [id number] [address] [place] [address], [place] [address] Dec, [facility] [address] [id number] [address] [place] [address], [place] [address] Dec, [facility] [address] [id number] [address] [place] [address], [place] [address] Dec, [facility] [facility] [address] [id number] [address] [place] [address], [place] [address] Dec, [facility] [address] [id number] [address] [place] [address], [place] [address] October, [facility] [address] [id number] [address] [place] [address], [place] [address] October, [facility] [address] [id number] [address] [place] [address], [place] [address] October, [facility] [address] [id number] [address] [place] [address], [place] [address] October, [facility] [address] [id number] [address] [place] [address], [place] [address] October, [facility] [address] [id number] [address] [place] [address], [place] [address] October, [facility] [address] [id number] [address] [place] [address], [place] [address] Oct, [facility] [address] [id number] [address] [place] [address], [place] [address] Oct, [facility] [address] [id number] [address] [place] [address], [place] [address] Oct, [facility] [address] [id number] [address] [place] [address], [place] [address] Oct, [facility] [address] [id number] [address] [place] [address], [place] [address] Oct, [facility] [address] [id number] [address] [place] [address], [place] [address] Oct, [facility] [address] [id number] [address] [place] [address], [place] [address] Oct, [facility] [address] [id number] [address] [place] [address], [place] [address] Oct, [facility] [address] [id number] [facility] [place] [address] Oct, [facility] [address] [id number] [facility] [place] [address] Oct, [facility] [address] [id number] [address] [place] [address], [place] [address] Oct, [facility] [address] [id number] [address] [place] [address], [place] [address] Oct, [facility] [address] [id number] [address] [place] [address], [place] [address] Aug, [facility] [address] [id number] [address] [place] [address], [place] [address] Aug, [facility] [address] [id number] [address] [place] [address], [place] [address] Aug, [facility] [address] [id number] [address] [place] [address], [place] [address] Aug, [facility] [address] [id number] [address] [place] [address], [place] [address] Aug, [facility] [address] [id number] [address] [place] [address], [place] [address] Aug, [facility] [address] [id number] [address] [place] [address], [place] [address] Aug, [facility] [address] [id number] [address] [place] [address], [place] [address] Aug, [facility] [address] [id number] [address] [place] [address], [place] [address] Aug, [facility] [address] [id number] [address] [place] [address], [place] [address] Aug, [facility] [address] [id number] [address] [place] [address], [place] [address] Aug, [facility] [address] [id number] [address] [place] [address], [place] [address] Aug, [facility] [address] [id number] [address] [place] [address], [place] [address] Aug, [facility] [address] [id number] [address] [place] [address], [place] [address] 20 Aug, 2013 [facility] [address] [id number] [address] [place] [address], [place] [address] 14 Aug, 2013 [facility] [address] [id number] [address] [place] [address], [place] [address] 14 Aug, 2013 [facility] [address] [id number] [address] [place] [address], [place] [address] 14 Aug, 2013 [facility] [address] [id number] [address] [place] [address], [place] [address] 14 Aug, 2013 [facility] [address] [id number] [address] [place] [address], [place] [address] 07 Aug, 2013 [facility] [address] [id number] [address] [place] [address], [place] [address] 07 Aug, 2013 [facility] [address] [id number] [address] [place] [address], [place] [address] 06 Aug, 2013 [facility] [address] [id number] [address] [place] [address], [place] [address] 06 Aug, 2013 [facility] [address] [id number] [address] [place] [address], [place] [address] 04 Aug, 2013 [facility] [address] [id number] [address] [place] [address], [place] [address] 04 Aug, 2013 [facility] [address] [id number] [address] [place] [address], [place] [address] Aug, [facility] [address] [id number] [address] [place] [address], [place] [address] Jul, [facility] [address] [id number] [address] [place] [address], [place] [address] Jul, [facility] [address] [id number] [address] [place] [address], [place] [address] Jul, [facility] [address] [id number] [address] [place] [address], [place] [address] Jul, [facility] [address] [id number] [address] [place] [address], [place] [address] Jul, [facility] [address] [id number] [address] [place] [address], [place] [address] Jul, [facility] [address] [id number] [address] [place] [address], [place] [address] Jul, [facility] [address] [id number] [address] [place] [address], [place] [address] Jul, [facility] [address] [id number] [address] [place] [address], [place] [address] Jul, [facility] [address] [id number] [address] [place] [address], [place] [address] Jul, [facility] [address] [id number] [address] [place] [address], [place] [address] Jul, [facility] [address] [id number] [address] [place] [address], [place] [address] Jul, [facility] [address] [id number] [address] [place] [address], [place] [address] Jul, [facility] [address] [id number] [address] [place] [address], [place] [address] Jul, [facility] [address] [id number] [address] [place] [address], [place] [address] Jul, [facility] [address] [id number] [address] [place] [address], [place] [address] Jul, [facility] [address] [id number] [address] [place] [address], [place] [address] Jul, [facility] [address] [id number] [address] [place] [address], [place] [address] Jul, [facility] [address] [id number] [address] [place] [address], [place] [address] Jul, [facility] [address] [id number] [address] [place] [address], [place] [address] Jul, [facility] [address] [id number] [address] [place] [address], [place] [address] Jun, [facility] [address] [id number] [address] [place] [address], [place] [address] Jun, [facility] [address] [id number] [address] [place] [address], [place] [address] Jun, [facility] [address] [id number] [address] [place] [address], [place] [address] Jun, [facility] [address] [id number] [address] [place] [address], [place] [address] Jun, [facility] [address] [id number] [address] [place] [address], [place] [address] Jun, [facility] [address] [id number] [address] [place] [address], [place] [address] Jun, [facility] [address] [id number] [address] [place] [address], [place] [address] Jun, [facility] [address] [id number] [address] [place] [address], [place] [address] Jun, [facility] [address] [id number] [address] [place] [address], [place] [address] Jun, [facility] [address] [id number] [address] [place] [address], [place] [address] Jun, [facility] [address] [id number] [address] [place] [address], [place] [address] Jun, [facility] [address] [id number] [address] [place] [address], [place] [address] Jun, [facility] [address] [id number] [address] [place] [address], [place] [address] 20 Jun, 2013 [facility] [address] [id number] [address] [place] [address], [place] [address] 20 Jun, 2013 [facility] [address] [id number] [address] [place] [address], [place] [address] 18 Jun, 2013 [facility] [address] [id number] [address] [place] [address], [place] [address] 18 Jun, 2013 [facility] [address] [id number] [address] [place] [address], [place] [address] 17 Jun, 2013 [facility] [address] [id number] [address] [place] [address], [place] [address] 17 Jun, 2013 [facility] [address] [id number] [address] [place] [address], [place] [address] 13 Jun, 2013 [facility] [address] [id number] [address] [place] [address], [place] [address] 12 Jun, 2013 [facility] [address] [id number] [address] [place] [address], [place] [address] 12 Jun, 2013 [facility] [address] [id number] [address] [place] [address], [place] [address] 09 Jun, 2013 [facility] [address] [id number] [address] [place] [address], [place] [address] 05 Jun, 2013 [facility] [address] [id number] [address] [place] [address], [place] [address] 05 Jun, 2013 [facility] [address] [id number] [address] [place] [address], [place] [address] 04 Jun, 2013 [facility] [address] [id number] [address] [place] [address], [place] [address] 04 Jun, 2013 [facility] [address] [id number] [address] [place] [address], [place] [address] 17 May, 2013 [facility] [address] [id number] [address] [place] [address], [place] [address] May, [facility] [address] [id number] [address] [place] [address], [place] [address] May, [facility] [address] [id number] [address] [place] [address], [place] [address] May, [facility] [address] [id number] [address] [place] [address], [place] [address] May, [facility] [address] [id number] [address] [place] [address], [place] [address] May, [facility] [address] [id number] [address] [place] [address], [place] [address] Apr, [facility] [address] [id number] [address] [place] [address], [place] [address] Apr, [facility] [address] [id number] [address] [place] [address], [place] [address] Apr, [facility] [address] [id number] [address] [place] [address], [place] [address] Apr, [facility] [address] [id number] [address] [place] [address], [place] [address] Apr, [facility] [address] [id number] [address] [place] [address], [place] [address] Apr, [facility] [address] [id number] [address] [place] [address], [place] [address] Apr, [facility] [address] [id number] [address] [place] [address], [place] [address] Apr, [facility] [address] [id number] [address] [place] [address], [place] [address] Mar, [facility] [address] [id number] [address] [place] [address], [place] [address] 24 Mar, 2013 [facility] [address] [id number] [address] [place] [address], [place] [address] 17 Mar, 2013 [facility] [address] [id number] [address] [place] [address] [place] [address] 17 Mar, 2012 [facility] [address] [id number] [address] [place] [address], [place] [address] 11 Mar, 2012 [facility] [address] [id number] [address] [place] [address], [place] [address] 10 Mar, 2012 [facility] [address] [id number] [address] [place] [address], [place] [address] 05 Mar, 2012 [facility] [address] [id number] [address] [place] [address], [place] [address] 04 Mar, 2013 [facility] [address] [id number] [address] [place] [address], [place] [address] 20 Jan, 2013 [facility] [address] [id number] [address] [place] [address], [place] [address] Jan, [facility] [address] [id number] [address] [place] [address], [place] [address] 14 Jan, 2013 [facility] [address] [id number] [address] [place] [address], [place] [address] Jan, [facility] [address] [id number] [address] [place] [address], [place] [address] Jan, [facility] [address] [id number] [address] [place] [address], [place] [address] Jan, [facility] [address] [id number] [address] [place] [address], [place] [address] Dec, [facility] [address] [id number] [address] [place] [address], [place] [address] Dec, [facility] [address] [id number] [address] [place] [address], [place] [address] Dec, [facility] [address] [id number] [address] [place] [address], [place] [address] Dec, [facility] [address] [id number] [address] [place] [address], [place] [address] Dec, [facility] [address] [id number] [address] [place] [address], [place] [address] 17 Dec, 2012 [facility] [address] [id number] [address] [place] [address], [place] [address] 16 Dec, 2012 [facility] [address] [id number] [address] [place] [address], [place] [address] 16 Dec, 2012 [facility] [address] [id number] [address] [place] [address], [place] [address] 15 Dec, 2012 [facility] [address] [id number] [address] [place] [address], [place] [address] 10 Dec, 2012 [facility] [address] [id number] [address] [place] [address], [place] [address] 28 Dec, 2012 [facility] [address] [id number] [address] [place] [address], [place] [address] Dec, [facility] [address] [id number] [address] [place] [address], [place] [address] Dec, [facility] [address] [id number] [address] [place] [address], [place] [address] Dec, [facility] [address] [id number] [address] [place] [address], [place] [address] Dec, [facility] [address] [id number] [address] [place] [address], [place] [address] Dec, [facility] [address] [id number] [address] [place] [address], [place] [address] October, [facility] [address] [id number] [address] [place] [address], [place] [address] October, [facility] [address] [id number] [address] [place] [address], [place] [address] October, [facility] [address] [id number] [address] [place] [address], [place] [address] October, [facility] [address] [id number] [address] [place] [address], [place] [address] October, [facility] [address] [id number] [address] [place] [address], [place] [address] October, [facility] [address] [id number] [address] [place] [address], [place] [address] October, [facility] [address] [id number] [address] [place] [address], [place] [address] Oct, [facility] [address] [id number] [address] [place] [address], [place] [address] Oct, [facility] [address] [id number] [address] [place] [address], [place] [address] Oct, [facility] [address] [id number] [address] [place] [address], [place] [address] Oct, [facility] [address] [id number] [address] [place] [address], [place] [address] Oct, [facility] [address] [id number] [address] [place] [address], [place] [address] Oct, [facility] [address] [id number] [address] [place] [address], [place] [address] Oct, [facility] [address] [id number] [address] [place] [address], [place] [address] Oct, [facility] [address] [id number] [address] [place] [address], [place] [address] Oct, [facility] [address] [id number] [address] [place] [address], [place] [address] Oct, [facility] [address] [id number] [address] [place] [address], [place] [address] Oct, [facility] [address] [id number] [address] [place] [address], [place] [address] Oct, [facility] [address] [id number] [address] [place] [address], [place] [address] Aug, [facility] [address] [id number] [address] [place] [address], [place] [address] 20 Aug, 2012 [facility] [address] [id number] [address] [place] [address], [place] [address] 12 Aug, 2012 [facility] [address] [id number] [address] [place] [address], [place] [address] 06 Aug, 2012 [facility] [address] [id number] [address] [place] [address], [place] [address] 05 Aug, 2012 [facility] [address] [id number] [address] [place] [address], [place] [address] 05 Aug, 2012 [facility] [address] [id number] [address] [place] [address], [place] [address] 20 Aug, 2012 [facility] [address] [id number] [address] [place] [address], [place] [address] 14 Aug, 2012 [facility] [address] [id number] [address] [place] [address], [place] [address] 12 Aug, 2012 [facility] [address] [id number] [address] [place] [address], [place] [address] Aug, [facility] [address] [id number] [address] [place] [address], [place] [address] Jul, [facility] [address] [id number] [address] [place] [address], [place] [address] 15 Jul, 2012 [facility] [address] [id number] [address] [place] [address], [place] [address] Jul, [facility] [address] [id number] [address] [place] [address], [place] [address] Jun, [facility] [address] [id number] [address] [place] [address], [place] [address] Jun, [facility] [address] [id number] [address] [place] [address], [place] [address] Jun, [facility] [address] [id number] [address] [place] [address], [place] [address] Jun, [facility] [address] [id number] [address] [place] [address], [place] [address] 18 Jun, 2012 [facility] [address] [id number] [address] [place] [address], [place] [address] 14 Jun, 2012 [facility] [address] [id number] [address] [place] [address], [place] [address] 14 Jun, 2012 [facility] [address] [id number] [address] [place] [address], [place] [address] 13 Jun, 2012 [facility] [address] [id number] [address] [place] [address], [place] [address] 13 Jun, 2012 [facility] [address] [id number] [address] [place] [address], [place] [address] 11 Jun, 2012 [facility] [address] [id number] [address] [place] [address], [place] [address] 11 Jun, 2012 [facility] [address] [id number] [address] [place] [address], [place] [address] 11 Jun, 2012 [facility] [address] [id number] [address] [place] [address], [place] [address] 11 Jun, 2012 [facility] [address] [id number] [address] [place] [address], [place] [address] 07 Jun, 2012 [facility] [address] [id number] [address] [place] [address], [place] [address] 07 Jun, 2012 [facility] [address] [id number] [address] [place] [address], [place] [address] 06 Jun, 2012 [facility] [address] [id number] [address] [place] [address], [place] [address] Jun, [facility] [address] [id number] [address] [place] [address], [place] [address] 06 Jun, 2012 [facility] [address] [id number] [address] [place] [address], [place] [address] 06 Jun, 2012 [facility] [address] [id number] [address] [place] [address], [place] [address] 05 Jun, 2012 [facility] [address] [id number] [address] [place] [address], [place] [address] Jun, [facility] [address] [id number] [address] [place] [address], [place] [address] Jun, [facility] [address] [id number] [address] [place] [address], [place] [address] Jun, [facility] [address] [id number] [address] [place] [address], [place] [address] May, [facility] [address] [id number] [address] [place] [address], [place] [address] May, [facility] [address] [id number] [address] [place] [address], [place] [address] May, [facility] [address] [id number] [address] [place] [address], [place] [address] May, [facility] [address] [id number] [address] [place] [address], [place] [address] May, [facility] [address] [id number] [address] [place] [address], [place] [address] May, [facility] [address] [id number] [address] [place] [address], [place] [address] May, [facility] [address] [id number] [address] [place] [address], [place] [address] May, [facility] [address] [id number] [address] [place] [address] Apr, [facility] [address] [id number] [address] [place] [address], [place] [address] Apr, [facility] [address] [id number] [address] [place] [address], [place] [id number] Apr, [facility] [address] [id number] [address] [place] [id number] 16 Apr, 2012 [facility] [address] [id number] [address] [place] [address], [place] [address] 16 Apr, 2012 [facility] [address] [id number] [address] [place] [address], [place] [address] Apr, [facility] [address] [id number] [address] [place] [address], [place] [address] Apr, [facility] [address] [id number] [address] [place] [address], [place] [address] Apr, [facility] [address] [id number] [address] [place] [address], [place] [address] Apr, [facility] [address] [id number] [address] [place] [address], [place] [address] Apr, [facility] [address] [id number] [address] [place] [address], [place] [address] Apr, [facility] [address] [id number] [address] [place] [address], [place] [address] Apr, [facility] [address] [id number] [address] [place] [address], [place] [address] 19 Mar, 2012 [facility] [address] [id number] [address] [place] [id number] 18 Mar, 2012 [facility] [address] [id number] [address] [place] [address], [place] [address] 12 Mar, 2012 [facility] [address] [id number] [address] [place] [address], [place] [address] 12 Mar, 2012 [facility] [address] [id number] [address] [place] [id number] Mar, [facility] [address] [id number] [address] [place] [id number] Mar, [facility] [address] [id number] [address] [place] [address], [place] [address] 04 Mar, 2012 [facility] [address] [id number] [address] [place] [phone] Jan, [facility] [address] [id number] [address] [place] [address], [place] [address] Jan, [facility] [address] [id number] [address] [place] [address], [place] [id number] Jan, [facility] [address] [id number] [facility] [place] [id number] Jan, [facility] [address] [id number] [address] [place] [address], [place] [address] Jan, [facility] [address] [id number] [address] [place] [address], [place] [address] Jan, [facility] [address] [id number] [address] [place] [address], [place] [address] Jan, [facility] [address] [id number] [address] [place] [address], [place] [address] Jan, [facility] [address] [id number] [address] [place] [address], [place] [address] Jan, [facility] [address] [id number] [address] [place] [address], [place] [address] Jan, [facility] [address] [id number] [address] [place] [address], [place] [address] Jan, [facility] [address] [id number] [address] [place] [address], [place] [address] Dec, [facility] [address] [id number] [address] [place] [address], [place] [address] Dec, [facility] [address] [id number] [address] [place] [address], [place] [address] Dec, [facility] [address] [id number] [address] [place] [address], [place] [address] Dec, [facility] [address] [id number] [address] [place] [address], [place] [address] Dec, [facility] [address] [id number] [address] [place] [address] [place] [address] 19 Jan, 2012 [facility] [address] [id number] [address] [place] [address], [place] [address] 18 Jan, 2012 [facility] [address] [id number] [address] [place] [address], [place] [address] 17 Jan, 2012 [facility] [address] [id number] [address] [place] [address], [place] [address] 16 Jan, 2012 [facility] [address] [id number] [address] [place] [address], [place] [address] 13 Jan, 2012 [facility] [address] [id number] [address] [place] [address], [place] [address] 13 Jan, 2012 [facility] [address] [id number] [address] [place] [address], [place] [address] 02 Jan, 2012 [facility] [address] [id number] [address] [place] [address], [place] [address] Dec, [facility] [address] [id number] [address] [place] [address], [place] [address] Dec, [facility] [address] [id number] [address] [place] [address], [place] [address] Dec, [facility] [address] [id number] [address] [place] [address], [place] [address] Dec, [facility] [address] [id number] [address] [place] [address], [place] [address] 15 Dec, 2011 [facility] [address] [id number] [address] [place] [address], [place] [address] Dec, [facility] [address] [id number] [address] [place] [address], [place] [address] 05 Dec, 2011 [facility] [address] [id number] [address] [place] [address], [place] [address] October, [facility] [address] [id number] [address] [place] [address], [place] [address] October, [facility] [address] [id number] [address] [place] [address], [place] [address] October, [facility] [address] [id number] [address] [place] [address], [place] [address] October, [facility] [address] [id number] [address] [place] [address], [place] [address] October, [facility] [address] [id number] [address] [place] [address], [place] [address] October, [facility] [address] [id number] [address] [place] [address], [place] [address] Oct, [facility] [address] [id number] [address] [place] [address], [place] [address] 24 Oct, 2011 [facility] [address] [id number] [address] [place] [address], [place] [address] Oct, [facility] [address] [id number] [address] [place] [address], [place] [address] Oct, [facility] [address] [id number] [address] [place] [address], [place] [address] Oct, [facility] [address] [id number] [address] [place] [address], [place] [address] Oct, [facility] [address] [id number] [address] [place] [address], [place] [address] Oct, [facility] [address] [id number] [address] [place] [address], [place] [address] 29 Sep, 2011 [facility] [address] [id number] [address] [place] [address], [place] [address] 29 Sep, 2011 [facility] [address] [id number] [address] [place] [address], [place] [address] 19 Sep, 2011 [facility] [address] [id number] [address] [place] [address], [place] [address] 13 Sep, 2011 [facility] [address] [id number] [address] [place] [address], [place] [address] Aug, [facility] [address] [id number] [address] [place] [address], [place] [address] Aug, [facility] [address] [id number] [address] [place] [address], [place] [address] 27 Aug, 2011 [facility] [address] [id number] [address] [place] [address], [place] [address] Aug, [facility] [address] [id number] [address] [place] [address], [place] [address] 08 Aug, 2011 [facility] [address] [id number] [address] [place] [address], [place] [address] Jul, [facility] [address] [id number] [address] [place] [address], [place] [address] Jul, [facility] [address] [id number] [address] [place] [address], [place] [address] Jul, [facility] [address] [id number] [address] [place] [address], [place] [address] Jul, [facility] [address] [id number] [address] [place] [address], [place] [address] Jun, [facility] [address] [id number] [address] [place] [address], [place] [address] Jun, [facility] [address] [id number] [address] [place] [address], [place] [address] May, [facility] [address] [id number] [address] [place] [address], [place] [address] May, [facility] [address] [id number] [address] [place] [address], [place] [address] May, [facility] [address] [id number] [address] [place] [address], [place] [address] May, [facility] [address] [id number] [address] [place] [address], [place] [address] May, [facility] [address] [id number] [address] [place] [address] Apr, [facility] [address] [id number] [address] [place] [address] Apr, [facility] [address] [id number] [address] [place] [address] Apr, [facility] [address] [id number] [address] [place] [address] Jan, [facility] [address] [id number] [address] [place] [address] Dec, [facility] [address] [id number] [address] [place] [address] October, [facility] [address] [id number] [address] [place] [address] Jun, [facility] [address] [id number] [address] [place] [address] Apr, [facility] [address] [id number] [address] [place] [address] Apr, [facility] [address] [id number] [address] [place] [address] Apr, [facility] [address] [id number] [address] [place] [address] Jun, IMMUNIZATIONS No Known Immunizations SOCIAL HISTORY Never Assessed REASON FOR VISIT [facility] [place] VITAL SIGNS MEDICATIONS Unknown Medications RESULTS No Results PROCEDURES No Known procedures INSTRUCTIONS MEDICATIONS ADMINISTERED No Known Medications MEDICAL (GENERAL) HISTORY Type Description Date Medical History Psychiatric disorder Medical History Hard of hearing Surgical History Neofibrous tumor Surgical History back injection Hospitalization History Intestinal blockage Hospitalization History past psychiatric hospitalizations x2
--- OUTSIDE RECORDS SUMMARY | 2020-01-25 12:49 | XMS REPORT ---
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 Name Role Phone Migration, Doctor Unavailable Unavailable PROBLEMS Type Condition ICD9-CM Code QMC58-OS Code Onset Dates Condition S tatus SNOMED Code Problem Attention deficit R41.840 Active 76 438271 Problem Chronic hepatitis C without hepatic coma B18.2 Active 177834452 Problem Cannabis abuse F12.10 Active 24891 009 Problem Bipolar disorder, in partial remission, most rec ent episode hypomanic F31.71 Active 593189078 Problem Attention deficit hyperactivity disorder (ADHD), combi luciano type F90.2 Active 59275132 Problem Bipolar 1 disorder F31.9 Active 3 21709591 Problem H/O laminectomy Z98.89 Active 1616 03735 Problem Other chronic pain G89.29 Active 8 9067749 Problem Anxiety disorder, unspecified type F41.9 Active 018030263 ALLERGIES No Information ENCOUNTERS Encounter Location Date Diagnosis [facility] [address] [facility] [place] [id number] [address] [place] [address] October, [facility] [address] [facility] [place] [id number] [address] [place] [address] October, [facility] [address] [facility] [place] [id number] [address] [place] [address] Aug, Bipolar disorder, in partial remission, most recent episode hypomanic F31.71 ; Attention deficit hyperactivity disorder (ADHD), combined type F90.2 and Anxiety disorder, unspecified type F41.9 [facility] [address] [facility] [place] [id number] [address] [place] [address] Aug, [facility] [address] [facility] [place] [id number] [address] [place] [address] Aug, Bipolar disorder, in partial remission, most recent episode hypomanic F31.71 [facility] [address] [id number] [address] [place] [address] Aug, [facility] [address] [id number] [address] [place] [address] Aug, Bipolar disorder, in partial remission, most recent episode hypomanic F31.71 [facility] [address] [id number] [address] [place] [address] Aug, Bipolar disorder, in partial remission, most recent episode hypomanic F31.71 ; Attention deficit hyperactivity disorder (ADHD), combined type F90.2 and Anxiety disorder, unspecified type F41.9 [facility] [address] [id number] [address] [place] [address] Aug, Low back pain M54.5 and Pain in left wrist M25.532 [facility] [address] [id number] [address] [place] [address] Aug, [facility] [address] [id number] [address] [place] [address] Jun, [facility] [address] [id number] [address] [place] [address] Apr, Bipolar disorder, in partial remission, most recent episode hypomanic F31.71 [facility] [address] [id number] [address] [place] [address] Apr, [facility] [address] [id number] [address] [place] [address] Apr, Bipolar disorder, in partial remission, most recent episode hypomanic F31.71 ; Attention deficit hyperactivity disorder (ADHD), combined type F90.2 ; Anxiety disorder, unspecified type F41.9 and 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 [facility] [address] [id number] [address] [place] [address] Apr, Bipolar disorder, in partial remission, most recent episode hypomanic F31.71 [facility] [address] [id number] [address] [place] [address] Apr, Bipolar disorder, in partial remission, most recent episode hypomanic F31.71 [facility] [address] [id number] [address] [place] [address] Mar, [facility] [address] [id number] [address] [place] [address] Mar, Bipolar disorder, in partial remission, most recent episode hypomanic F31.71 ; Encounter for immunization Z23 and Low back pain M54.5 [facility] [address] [id number] [address] [place] [address] Mar, Bipolar disorder, in partial remission, most recent episode hypomanic F31.71 [facility] [address] [id number] [address] [place] [address] Mar, Bipolar disorder, in partial remission, most recent episode hypomanic F31.71 [facility] [address] [id number] [address] [place] [address] Jan, Bipolar disorder, in partial remission, most recent episode hypomanic F31.71 [facility] [address] [id number] [address] [place] [address] Jan, Bipolar disorder, in partial remission, most recent episode hypomanic F31.71 [facility] [address] [id number] [address] [place] [address] Dec, Bipolar disorder, in partial remission, most recent episode hypomanic F31.71 [facility] [address] [id number] [address] [place] [address] Dec, Bipolar disorder, in partial remission, most recent episode hypomanic F31.71 ; Attention deficit hyperactivity disorder (ADHD), combined type F90.2 ; Anxiety disorder, unspecified type F41.9 and 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 [facility] [address] [id number] [address] [place] [address] Dec, Bipolar disorder, in partial remission, most recent episode hypomanic F31.71 [facility] [address] [facility] [place] [id number] [address] [place] [address] Dec, Bipolar disorder, in partial remission, most recent episode hypomanic F31.71 [facility] [address] [facility] [place] [id number] [address] [place] [address] October, Bipolar disorder, in partial remission, most recent episode hypomanic F31.71 [facility] [address] [facility] [place] [id number] [address] [place] [address] October, [facility] [address] [facility] [place] [id number] [address] [place] [address] October, [facility] [address] [facility] [place] [id number] [address] [place] [address] Oct, Bipolar disorder, in partial remission, most recent episode hypomanic F31.71 ; Attention deficit hyperactivity disorder (ADHD), combined type F90.2 ; Anxiety disorder, unspecified type F41.9 and Encounter for drug screening Z02.83 [facility] [address] [facility] [place] [id number] [address] [place] [address] Oct, Bipolar disorder, in partial remission, most recent episode hypomanic F31.71 [facility] [address] [facility] [place] [id number] [address] [place] [address] Oct, Bipolar disorder, in partial remission, most recent episode hypomanic F31.71 [facility] [address] [facility] [place] [id number] [address] [place] [address] Aug, Bipolar disorder, in partial remission, most recent episode hypomanic F31.71 [facility] [address] [facility] [place] [id number] [address] [place] [address] Aug, Bipolar disorder, in partial remission, most recent episode hypomanic F31.71 [facility] [address] [facility] [place] [id number] [address] [place] [address] Aug, Bipolar disorder, in partial remission, most recent episode hypomanic F31.71 [facility] [address] [facility] [place] [id number] [address] [place] [address] Jul, Bipolar disorder, in partial remission, most recent episode hypomanic F31.71 ; Attention deficit hyperactivity disorder (ADHD), combined type F90.2 and Anxiety disorder, unspecified type F41.9 [facility] [address] [id number] [address] [place] [address] Jul, Bipolar disorder, in partial remission, most recent episode hypomanic F31.71 [facility] [address] [id number] [address] [place] [address] Jun, Bipolar disorder, in partial remission, most recent episode hypomanic F31.71 [facility] [address] [id number] [address] [place] [address] May, Bipolar disorder, in partial remission, most recent episode hypomanic F31.71 [facility] [address] [facility] [facility] [place] [id number] [address] [place] [address] May, Bipolar disorder, in partial remission, most recent episode hypomanic F31.71 [facility] [address] [facility] [place] [id number] [address] [place] [address] Apr, [facility] [address] [facility] [place] [id number] [address] [place] [address] Apr, Bipolar disorder, in partial remission, most recent episode hypomanic F31.71 ; Attention deficit hyperactivity disorder (ADHD), combined type F90.2 ; Anxiety disorder, unspecified type F41.9 and Cannabis abuse F12.10 [facility] [address] [id number] [address] [place] [address] Apr, Attention deficit hyperactiv ity disorder (ADHD), combined type F90.2 [facility] [address] [id number] [address] [place] [address] Mar, Attention deficit hyperactiv ity disorder (ADHD), combined type F90.2 [facility] [address] [facility] [place] [id number] [address] [place] [address] 14 Mar, 2017 Anxiety disorder, unspecifie d type F41.9 [place] [id number] [facility] [facility] [place] [id number] [address] [place] [address] Jan, Attention deficit hyperactiv ity disorder (ADHD), combined type F90.2 [facility] [address] [facility] [place] [id number] [address] [place] [address] Jan, Anxiety disorder, unspecifie d type F41.9 [facility] [address] [facility] [place] [id number] [address] [place] [address] Jan, Other chronic pain G89.29 ; Chronic hepatitis C without hepatic coma B18.2 and Bipolar 1 disorder F31.9 [facility] [address] [facility] [place] [id number] [address] [place] [address] Dec, Attention deficit hyperactiv ity disorder (ADHD), combined type F90.2 [facility] [address] [facility] [place] [id number] [address] [place] [address] Dec, Bipolar disorder, in partial remission, most recent episode hypomanic F31.71 ; Attention deficit hyperactivity disorder (ADHD), combined type F90.2 and Anxiety disorder, unspecified type F41.9 [facility] [address] [facility] [place] [id number] [address] [place] [address] Dec, Bipolar disorder, in partial remission, most recent episode hypomanic F31.71 ; Attention deficit hyperactivity disorder (ADHD), combined type F90.2 and Anxiety disorder, unspecified type F41.9 [facility] [address] [facility] [place] [id number] [address] [place] [address] Dec, Bipolar 1 disorder F31.9 and Attention deficit R41.840 [facility] [address] [facility] [place] [id number] [address] [place] [address] Oct, Other chronic pain G89.29 ; Alopecia L65.9 and Screening, lipid Z13.220 [facility] [address] [facility] [place] [id number] [address] [place] [address] Oct, [facility] [address] [place] [id number] [address] [place] [address] Aug, [facility] [address] [id number] [address] [place] [address] Aug, Eustachian tube dysfunction, right H69.81 ; Vertigo R42 and Other chronic pain G89.29 [facility] [address] [id number] [address] [place] [address] Aug, [facility] [address] [id number] [address] [place] [address] Jun, [facility] [address] [id number] [address] [place] [address] Jun, Low back pain M54.5 and Othe r chronic pain G89.29 [facility] [address] [id number] [address] [place] [address] Jun, [facility] [address] [id number] [address] [place] [address] May, [facility] [address] [id number] [address] [place] [address] Jan, [facility] [address] [id number] [address] [place] [address] Dec, [facility] [address] [id number] [address] [place] [address] Dec, [facility] [address] [id number] [address] [place] [address] Jun, [facility] [address] [id number] [address] [place] [address] Apr, Eustachian tube dysfunction, unspecified laterality H69.80 ; Hot flashes N95.1 and Encounter for immunization Z23 [facility] [address] [id number] [address] [place] [address] Jan, [facility] [address] [id number] [address] [place] [address] Jan, [facility] [address] [id number] [address] [place] [address] Jan, [facility] [address] [id number] [address] [place] [address] Jan, [facility] [address] [id number] [address] [place] [address] Jan, Encounter to establish care V65.8 ; Bipolar 1 disorder 296.7 ; Abdominal pain 789.00 ; Constipation 564.00 ; Hard of hearing 389.9 and Drug abuse 305.90 [facility] [address] [id number] [address] [place] [address] Dec, [facility] [address] [id number] [address] [place] [address] October, [facility] [address] [id number] [address] [place] [address] October, [facility] [address] [id number] [address] [place] [address] Oct, [facility] [address] [id number] [address] [place] [address] Oct, [facility] [address] [id number] [address] [place] [address] Oct, [facility] [address] [id number] [address] [place] [address] Aug, [facility] [address] [id number] [address] [place] [address] Aug, [facility] [address] [id number] [address] [place] [address] Aug, [facility] [address] [id number] [address] [place] [address] Aug, [facility] [address] [id number] [address] [place] [address] Aug, [facility] [address] [id number] [address] [place] [address], [place] [address] Aug, 2014 [facility] [address] [id number] [address] [place] [address], [place] [address] Aug, 2014 [facility] [address] [id number] [address] [place] [address], [place] [address] Aug, 2014 [facility] [address] [id number] [address] [place] [address], [place] [address] Aug, 2014 [facility] [address] [id number] [address] [place] [address], [place] [address] Aug, 2014 [facility] [address] [id number] [address] [place] [address], [place] [address] Aug, 2014 [facility] [address] [id number] [address] [place] [address], [place] [address] Aug, 2014 [facility] [address] [id number] [address] [place] [address], [place] [address] Aug, 2014 [facility] [address] [id number] [address] [place] [address], [place] [address] Aug, 2014 [facility] [address] [id number] [address] [place] [address], [place] [address] Aug, [facility] [address] [id number] [address] [place] [address], [place] [address] Jul, [facility] [address] [id number] [address] [place] [address], [place] [address] Jul, [facility] [address] [id number] [address] [place] [address], [place] [address] Jul, [facility] [address] [id number] [address] [place] [address], [place] [address] Jul, [facility] [address] [id number] [address] [place] [address], [place] [address] Jul, [facility] [address] [id number] [address] [place] [address], [place] [address] Jul, [facility] [address] [id number] [address] [place] [address], [place] [address] Jul, [facility] [address] [id number] [address] [place] [address], [place] [address] Jul, [facility] [address] [id number] [address] [place] [address], [place] [address] Jun, [facility] [address] [id number] [address] [place] [address], [place] [address] Jun, [facility] [address] [id number] [address] [place] [address], [place] [address] Jun, [facility] [address] [id number] [address] [place] [address], [place] [address] Jun, [facility] [address] [id number] [address] [place] [address], [place] [address] Jun, [facility] [address] [id number] [address] [place] [address], [place] [address] Jun, [facility] [address] [id number] [address] [place] [address], [place] [address] Jun, [facility] [address] [id number] [address] [place] [address], [place] [address] Jun, [facility] [address] [id number] [address] [place] [address], [place] [address] Jun, [facility] [address] [id number] [address] [place] [address], [place] [address] Jun, [facility] [address] [id number] [address] [place] [address], [place] [address] Jun, [facility] [address] [id number] [address] [place] [address], [place] [address] May, [facility] [address] [id number] [address] [place] [address], [place] [address] May, [facility] [address] [id number] [address] [place] [address], [place] [address] May, [facility] [address] [id number] [address] [place] [address], [place] [address] May, [facility] [address] [id number] [address] [place] [address], [place] [address] May, [facility] [address] [id number] [address] [place] [address], [place] [address] May, [facility] [address] [id number] [address] [place] [address], [place] [address] May, [facility] [address] [id number] [address] [place] [address], [place] [address] Apr, [facility] [address] [id number] [address] [place] [address], [place] [address] Apr, [facility] [address] [id number] [address] [place] [address], [place] [address] Apr, [facility] [address] [id number] [address] [place] [address], [place] [address] Apr, [facility] [address] [id number] [address] [place] [address], [place] [address] Apr, [facility] [address] [id number] [address] [place] [address], [place] [address] Apr, [facility] [address] [id number] [address] [place] [address], [place] [address] 29 Mar, 2014 [facility] [address] [id number] [address] [place] [address], [place] [address] 29 Mar, 2013 [facility] [address] [id number] [address] [place] [address], [place] [address] 10 Mar, 2014 [facility] [address] [id number] [address] [place] [address], [place] [address] Mar, 2013 [facility] [address] [id number] [address] [place] [address], [place] [address] Mar, [facility] [address] [id number] [address] [place] [address], [place] [address] Mar, [facility] [address] [id number] [address] [place] [address], [place] [address] Jan, [facility] [address] [id number] [address] [place] [address], [place] [address] Jan, [facility] [address] [id number] [address] [place] [address], [place] [address] Jan, [facility] [address] [id number] [address] [place] [address], [place] [address] Jan, [facility] [address] [id number] [address] [place] [address], [place] [address] Dec, [facility] [address] [id number] [address] [place] [address], [place] [address] Dec, [facility] [address] [id number] [address] [place] [address], [place] [address] Dec, [facility] [address] [id number] [address] [place] [address], [place] [address] Dec, [facility] [address] [id number] [address] [place] [address], [place] [address] Dec, [facility] [address] [id number] [address] [place] [address], [place] [address] Dec, [facility] [address] [id number] [address] [place] [address], [place] [address] Dec, [facility] [address] [id number] [address] [place] [address], [place] [address] Dec, [facility] [address] [id number] [address] [place] [address], [place] [address] Dec, [facility] [address] [id number] [address] [place] [address], [place] [address] Dec, [facility] [address] [id number] [address] [place] [address], [place] [address] Dec, [facility] [address] [id number] [address] [place] [address], [place] [address] Dec, [facility] [address] [id number] [address] [place] [address], [place] [address] October, [facility] [address] [id number] [address] [place] [address], [place] [address] October, [facility] [address] [id number] [address] [place] [address], [place] [address] October, [facility] [address] [id number] [address] [place] [address], [place] [address] October, [facility] [address] [id number] [address] [place] [address], [place] [address] October, [facility] [address] [id number] [address] [place] [address], [place] [address] October, [facility] [address] [id number] [address] [place] [address], [place] [address] Oct, [facility] [address] [id number] [address] [place] [address], [place] [address] Oct, [facility] [address] [id number] [address] [place] [address], [place] [address] Oct, [facility] [address] [id number] [address] [place] [address], [place] [address] Oct, [facility] [address] [id number] [address] [place] [address], [place] [address] Oct, [facility] [address] [id number] [address] [place] [address], [place] [address] Oct, [facility] [address] [id number] [address] [place] [address], [place] [address] Oct, [facility] [address] [id number] [address] [place] [address], [place] [address] Oct, [facility] [address] [id number] [facility] [place] [address] Oct, [facility] [address] [id number] [facility] [place] [address] Oct, [facility] [address] [id number] [address] [place] [address], [place] [address] Oct, [facility] [address] [id number] [address] [place] [address], [place] [address] Oct, [facility] [address] [id number] [address] [place] [address], [place] [address] Aug, [facility] [address] [id number] [address] [place] [address], [place] [address] Aug, [facility] [address] [id number] [address] [place] [address], [place] [address] Aug, [facility] [address] [id number] [address] [place] [address], [place] [address] Aug, [facility] [address] [id number] [address] [place] [address], [place] [address] Aug, [facility] [address] [id number] [address] [place] [address], [place] [address] Aug, [facility] [address] [id number] [address] [place] [address], [place] [address] Aug, [facility] [address] [id number] [address] [place] [address], [place] [address] Aug, [facility] [address] [id number] [address] [place] [address], [place] [address] Aug, [facility] [address] [id number] [address] [place] [address], [place] [address] Aug, [facility] [address] [id number] [address] [place] [address], [place] [address] Aug, [facility] [address] [id number] [address] [place] [address], [place] [address] Aug, [facility] [address] [id number] [address] [place] [address], [place] [address] Aug, [facility] [address] [id number] [address] [place] [address], [place] [address] 20 Aug, 2013 [facility] [address] [id number] [address] [place] [address], [place] [address] 14 Aug, 2013 [facility] [address] [id number] [address] [place] [address], [place] [address] 14 Aug, 2013 [facility] [address] [id number] [address] [place] [address], [place] [address] 14 Aug, 2013 [facility] [address] [id number] [address] [place] [address], [place] [address] 14 Aug, 2013 [facility] [address] [id number] [address] [place] [address], [place] [address] 07 Aug, 2013 [facility] [address] [id number] [address] [place] [address], [place] [address] 07 Aug, 2013 [facility] [address] [id number] [address] [place] [address], [place] [address] 06 Aug, 2013 [facility] [address] [id number] [address] [place] [address], [place] [address] 06 Aug, 2013 [facility] [address] [id number] [address] [place] [address], [place] [address] 04 Aug, 2013 [facility] [address] [id number] [address] [place] [address], [place] [address] 04 Aug, 2013 [facility] [address] [id number] [address] [place] [address], [place] [address] Aug, [facility] [address] [id number] [address] [place] [address], [place] [address] Jul, [facility] [address] [id number] [address] [place] [address], [place] [address] Jul, [facility] [address] [id number] [address] [place] [address], [place] [address] Jul, [facility] [address] [id number] [address] [place] [address], [place] [address] Jul, [facility] [address] [id number] [address] [place] [address], [place] [address] Jul, [facility] [address] [id number] [address] [place] [address], [place] [address] Jul, [facility] [address] [id number] [address] [place] [address], [place] [address] Jul, [facility] [address] [id number] [address] [place] [address], [place] [address] Jul, [facility] [address] [id number] [address] [place] [address], [place] [address] Jul, [facility] [address] [id number] [address] [place] [address], [place] [address] Jul, [facility] [address] [id number] [address] [place] [address], [place] [address] Jul, [facility] [address] [id number] [address] [place] [address], [place] [address] Jul, [facility] [address] [id number] [address] [place] [address], [place] [address] Jul, [facility] [address] [id number] [address] [place] [address], [place] [address] Jul, [facility] [address] [id number] [address] [place] [address], [place] [address] Jul, [facility] [address] [id number] [address] [place] [address], [place] [address] Jul, [facility] [address] [id number] [address] [place] [address], [place] [address] Jul, [facility] [address] [id number] [address] [place] [address], [place] [address] Jul, [facility] [address] [id number] [address] [place] [address], [place] [address] Jul, [facility] [address] [id number] [address] [place] [address], [place] [address] Jul, [facility] [address] [id number] [address] [place] [address], [place] [address] Jun, [facility] [address] [id number] [address] [place] [address], [place] [address] Jun, [facility] [address] [id number] [address] [place] [address], [place] [address] Jun, [facility] [address] [id number] [address] [place] [address], [place] [address] Jun, [facility] [address] [id number] [address] [place] [address], [place] [address] Jun, [facility] [address] [id number] [address] [place] [address], [place] [address] Jun, [facility] [address] [id number] [address] [place] [address], [place] [address] Jun, [facility] [address] [id number] [address] [place] [address], [place] [address] Jun, [facility] [address] [id number] [address] [place] [address], [place] [address] Jun, [facility] [address] [id number] [address] [place] [address], [place] [address] Jun, [facility] [address] [id number] [address] [place] [address], [place] [address] Jun, [facility] [address] [id number] [address] [place] [address], [place] [address] Jun, [facility] [address] [id number] [address] [place] [address], [place] [address] Jun, [facility] [address] [id number] [address] [place] [address], [place] [address] 20 Jun, 2013 [facility] [address] [id number] [address] [place] [address], [place] [address] 20 Jun, 2013 [facility] [address] [id number] [address] [place] [address], [place] [address] 18 Jun, 2013 [facility] [address] [id number] [address] [place] [address], [place] [address] 18 Jun, 2013 [facility] [address] [id number] [address] [place] [address], [place] [address] 17 Jun, 2013 [facility] [address] [id number] [address] [place] [address], [place] [address] 17 Jun, 2013 [facility] [address] [id number] [address] [place] [address], [place] [address] 13 Jun, 2013 [facility] [address] [id number] [address] [place] [address], [place] [address] 12 Jun, 2013 [facility] [address] [id number] [address] [place] [address], [place] [address] 12 Jun, 2013 [facility] [address] [id number] [address] [place] [address], [place] [address] 09 Jun, 2013 [facility] [address] [id number] [address] [place] [address], [place] [address] 05 Jun, 2013 [facility] [address] [id number] [address] [place] [address], [place] [address] 05 Jun, 2013 [facility] [address] [id number] [address] [place] [address], [place] [address] 04 Jun, [address] [facility] [address] [id number] [address] [place] [address], [place] [address] 04 Jun, 2013 [facility] [address] [id number] [address] [place] [address], [place] [address] 17 May, 2013 [facility] [address] [id number] [address] [place] [address], [place] [address] May, [facility] [address] [id number] [address] [place] [address], [place] [address] May, [facility] [address] [id number] [address] [place] [address], [place] [address] May, [facility] [address] [id number] [address] [place] [address], [place] [address] May, [facility] [address] [id number] [address] [place] [address], [place] [address] May, [facility] [address] [id number] [address] [place] [address], [place] [address] Apr, [facility] [address] [id number] [address] [place] [address], [place] [address] Apr, [facility] [address] [id number] [address] [place] [address], [place] [address] Apr, [facility] [address] [id number] [address] [place] [address], [place] [address] Apr, [facility] [address] [id number] [address] [place] [address], [place] [address] Apr, [facility] [address] [id number] [address] [place] [address], [place] [address] Apr, [facility] [address] [id number] [address] [place] [address], [place] [address] Apr, [facility] [address] [id number] [address] [place] [address], [place] [address] Apr, [facility] [address] [id number] [address] [place] [address], [place] [address] Mar, [facility] [address] [id number] [address] [place] [address], [place] [address] 24 Mar, 2013 [facility] [address] [id number] [address] [place] [address], [place] [address] 17 Mar, 2013 [facility] [address] [id number] [address] [place] [address] [place] [address] 17 Mar, 2012 [facility] [address] [id number] [address] [place] [address], [place] [address] 11 Mar, 2012 [facility] [address] [id number] [address] [place] [address], [place] [address] 10 Mar, 2012 [facility] [address] [id number] [address] [place] [address], [place] [address] 05 Mar, 2012 [facility] [address] [id number] [address] [place] [address], [place] [address] 04 Mar, 2013 [facility] [address] [id number] [address] [place] [address], [place] [address] 20 Jan, [address] [facility] [address] [id number] [address] [place] [address], [place] [address] Jan, [facility] [address] [id number] [address] [place] [address], [place] [address] 14 Jan, 2013 [facility] [address] [id number] [address] [place] [address], [place] [address] Jan, [facility] [address] [id number] [address] [place] [address], [place] [address] Jan, [facility] [address] [id number] [address] [place] [address], [place] [address] Jan, [facility] [address] [id number] [address] [place] [address], [place] [address] Dec, [facility] [address] [id number] [address] [place] [address], [place] [address] Dec, [facility] [address] [id number] [address] [place] [address], [place] [address] Dec, [facility] [address] [id number] [address] [place] [address], [place] [address] Dec, [facility] [address] [id number] [address] [place] [address], [place] [address] Dec, [facility] [address] [id number] [address] [place] [address], [place] [address] 17 Dec, 2012 [facility] [address] [id number] [address] [place] [address], [place] [address] 16 Dec, [address] [facility] [address] [id number] [address] [place] [address], [place] [address] 16 Dec, [address] [facility] [address] [id number] [address] [place] [address], [place] [address] 15 Dec, 2012 [facility] [address] [id number] [address] [place] [address], [place] [address] 10 Dec, 2012 [facility] [address] [id number] [address] [place] [address], [place] [address] 28 Dec, 2012 [facility] [address] [id number] [address] [place] [address], [place] [address] Dec, [facility] [address] [id number] [address] [place] [address], [place] [address] Dec, [facility] [address] [id number] [address] [place] [address], [place] [address] Dec, [facility] [address] [id number] [address] [place] [address], [place] [address] Dec, [facility] [address] [id number] [address] [place] [address], [place] [address] Dec, [facility] [address] [id number] [address] [place] [address], [place] [address] October, [facility] [address] [id number] [address] [place] [address], [place] [address] October, [facility] [address] [id number] [address] [place] [address], [place] [address] October, [facility] [address] [id number] [address] [place] [address], [place] [address] October, [facility] [address] [id number] [address] [place] [address], [place] [address] October, [facility] [address] [id number] [address] [place] [address], [place] [address] October, [facility] [address] [id number] [address] [place] [address], [place] [address] October, [facility] [address] [id number] [address] [place] [address], [place] [address] Oct, [facility] [address] [id number] [address] [place] [address], [place] [address] Oct, [facility] [address] [id number] [address] [place] [address], [place] [address] Oct, [facility] [address] [id number] [address] [place] [address], [place] [address] Oct, [facility] [address] [id number] [address] [place] [address], [place] [address] Oct, [facility] [address] [id number] [address] [place] [address], [place] [address] Oct, [facility] [address] [id number] [address] [place] [address], [place] [address] Oct, [facility] [address] [id number] [address] [place] [address], [place] [address] Oct, [facility] [address] [id number] [address] [place] [address], [place] [address] Oct, [facility] [address] [id number] [address] [place] [address], [place] [address] Oct, [facility] [address] [id number] [address] [place] [address], [place] [address] Oct, [facility] [address] [id number] [address] [place] [address], [place] [address] Oct, [facility] [address] [id number] [address] [place] [address], [place] [address] Aug, [facility] [address] [id number] [address] [place] [address], [place] [address] 20 Aug, 2012 [facility] [address] [id number] [address] [place] [address], [place] [address] 12 Aug, [address] [facility] [address] [id number] [address] [place] [address], [place] [address] 06 Aug, [address] [facility] [address] [id number] [address] [place] [address], [place] [address] 05 Aug, 2012 [facility] [address] [id number] [address] [place] [address], [place] [address] 05 Aug, [address] [facility] [address] [id number] [address] [place] [address], [place] [address] 20 Aug, [address] [facility] [address] [id number] [address] [place] [address], [place] [address] 14 Aug, [address] [facility] [address] [id number] [address] [place] [address], [place] [address] 12 Aug, 2012 [facility] [address] [id number] [address] [place] [address], [place] [address] Aug, [facility] [address] [id number] [address] [place] [address], [place] [address] Jul, [facility] [address] [id number] [address] [place] [address], [place] [address] 15 Jul, 2012 [facility] [address] [id number] [address] [place] [address], [place] [address] Jul, [facility] [address] [id number] [address] [place] [address], [place] [address] Jun, [facility] [address] [id number] [address] [place] [address], [place] [address] Jun, [facility] [address] [id number] [address] [place] [address], [place] [address] Jun, [facility] [address] [id number] [address] [place] [address], [place] [address] Jun, [facility] [address] [id number] [address] [place] [address], [place] [address] 18 Jun, 2012 [facility] [address] [id number] [address] [place] [address], [place] [address] 14 Jun, 2012 [facility] [address] [id number] [address] [place] [address], [place] [address] 14 Jun, 2012 [facility] [address] [id number] [address] [place] [address], [place] [address] 13 Jun, 2012 [facility] [address] [id number] [address] [place] [address], [place] [address] 13 Jun, 2012 [facility] [address] [id number] [address] [place] [address], [place] [address] 11 Jun, 2012 [facility] [address] [id number] [address] [place] [address], [place] [address] 11 Jun, 2012 [facility] [address] [id number] [address] [place] [address], [place] [address] 11 Jun, 2012 [facility] [address] [id number] [address] [place] [address], [place] [address] 11 Jun, 2012 [facility] [address] [id number] [address] [place] [address], [place] [address] 07 Jun, [address] [facility] [address] [id number] [address] [place] [address], [place] [address] 07 Jun, 2012 [facility] [address] [id number] [address] [place] [address], [place] [address] 06 Jun, 2012 [facility] [address] [id number] [address] [place] [address], [place] [address] Jun, [facility] [address] [id number] [address] [place] [address], [place] [address] 06 Jun, 2012 [facility] [address] [id number] [address] [place] [address], [place] [address] 06 Jun, 2012 [facility] [address] [id number] [address] [place] [address], [place] [address] 05 Jun, 2012 [facility] [address] [id number] [address] [place] [address], [place] [address] Jun, [facility] [address] [id number] [address] [place] [address], [place] [address] Jun, [facility] [address] [id number] [address] [place] [address], [place] [address] Jun, [facility] [address] [id number] [address] [place] [address], [place] [address] May, [facility] [address] [id number] [address] [place] [address], [place] [address] May, [facility] [address] [id number] [address] [place] [address], [place] [address] May, [facility] [address] [id number] [address] [place] [address], [place] [address] May, [facility] [address] [id number] [address] [place] [address], [place] [address] May, [facility] [address] [id number] [address] [place] [address], [place] [address] May, [facility] [address] [id number] [address] [place] [address], [place] [address] May, [facility] [address] [id number] [address] [place] [address], [place] [address] May, [facility] [address] [id number] 14 [place] [address] Apr, [facility] [address] [id number] [address] [place] [address], [place] [address] Apr, [facility] [address] [id number] [address] [place] [address], [place] [address] Apr, [facility] [address] [id number] [address] [place] [address] 16 Apr, 2012 [facility] [address] [id number] [address] [place] [address], [place] [address] 16 Apr, 2012 [facility] [address] [id number] [address] [place] [address], [place] [address] Apr, [facility] [address] [id number] [address] [place] [address], [place] [address] Apr, [facility] [address] [id number] [address] [place] [address], [place] [address] Apr, [facility] [address] [id number] [address] [place] [address], [place] [address] Apr, [facility] [address] [id number] [address] [place] [address], [place] [address] Apr, [facility] [address] [id number] [address] [place] [address], [place] [address] Apr, [facility] [address] [id number] [address] [place] [address], [place] [address] Apr, [facility] [address] [id number] [address] [place] [address], [place] [address] 19 Mar, 2012 [facility] [address] [id number] [address] [place] [id number] 18 Mar, 2012 [facility] [address] [id number] [address] [place] [address], [place] [address] 12 Mar, 2012 [facility] [address] [id number] [address] [place] [address], [place] [address] 12 Mar, 2012 [facility] [address] [id number] [address] [place] [id number] Mar, [facility] [address] [id number] [address] [place] [id number] Mar, [facility] [address] [id number] [address] [place] [address], [place] [address] 04 Mar, 2012 [facility] [address] [id number] [address] [place] [id number] Jan, [facility] [address] [id number] [address] [place] [address], [place] [address] Jan, [facility] [address] [id number] [address] [place] [address], [place] [id number] Jan, [facility] [address] [id number] [facility] [place] [id number] Jan, [facility] [address] [id number] [address] [place] [address], [place] [address] Jan, [facility] [address] [id number] [address] [place] [address], [place] [address] Jan, [facility] [address] [id number] [address] [place] [address], [place] [address] Jan, [facility] [address] [id number] [address] [place] [address], [place] [address] Jan, [facility] [address] [id number] [address] [place] [address], [place] [address] Jan, [facility] [address] [id number] [address] [place] [address], [place] [address] Jan, [facility] [address] [id number] [address] [place] [address], [place] [address] Jan, [facility] [address] [id number] [address] [place] [address], [place] [address] Dec, [facility] [address] [id number] [address] [place] [address], [place] [address] Dec, [facility] [address] [id number] [address] [place] [address], [place] [address] Dec, [facility] [address] [id number] [address] [place] [address], [place] [address] Dec, [facility] [address] [id number] [address] [place] [address], [place] [address] Dec, [facility] [address] [id number] [address] [place] [address] [place] [address] 19 Jan, 2012 [facility] [address] [id number] [address] [place] [address], [place] [address] 18 Jan, 2012 [facility] [address] [id number] [address] [place] [address], [place] [address] 17 Jan, 2012 [facility] [address] [id number] [address] [place] [address], [place] [address] 16 Jan, 2012 [facility] [address] [id number] [address] [place] [address], [place] [address] 13 Jan, 2012 [facility] [address] [id number] [address] [place] [address], [place] [address] 13 Jan, 2012 [facility] [address] [id number] [address] [place] [address], [place] [address] 02 Jan, 2012 [facility] [address] [id number] [address] [place] [address], [place] [address] Dec, [facility] [address] [id number] [address] [place] [address], [place] [address] Dec, [facility] [address] [id number] [address] [place] [address], [place] [address] Dec, [facility] [address] [id number] [address] [place] [address], [place] [address] Dec, [facility] [address] [id number] [address] [place] [address], [place] [address] 15 Dec, 2011 [facility] [address] [id number] [address] [place] [address], [place] [address] Dec, [facility] [address] [id number] [address] [place] [address], [place] [address] 05 Dec, 2011 [facility] [address] [id number] [address] [place] [address], [place] [address] October, [facility] [address] [id number] [address] [place] [address], [place] [address] October, [facility] [address] [id number] [address] [place] [address], [place] [address] October, [facility] [address] [id number] [address] [place] [address], [place] [address] October, [facility] [address] [id number] [address] [place] [address], [place] [address] October, [facility] [address] [id number] [address] [place] [address], [place] [address] October, [facility] [address] [id number] [address] [place] [address], [place] [address] Oct, [facility] [address] [id number] [address] [place] [address], [place] [address] 24 Oct, 2011 [facility] [address] [id number] [address] [place] [address], [place] [address] Oct, [facility] [address] [id number] [address] [place] [address], [place] [address] Oct, [facility] [address] [id number] [address] [place] [address], [place] [address] Oct, [facility] [address] [id number] [address] [place] [address], [place] [address] Oct, [facility] [address] [id number] [address] [place] [address], [place] [address] Oct, [facility] [address] [id number] [address] [place] [address], [place] [address] 29 Sep, [address] [facility] [address] [id number] [address] [place] [address], [place] [address] 29 Sep, 2011 [facility] [address] [id number] [address] [place] [address], [place] [address] 19 Sep, 2011 [facility] [address] [id number] [address] [place] [address], [place] [address] 13 Sep, 2011 [facility] [address] [id number] [address] [place] [address], [place] [address] Aug, [facility] [address] [id number] [address] [place] [address], [place] [address] Aug, [facility] [address] [id number] [address] [place] [address], [place] [address] 27 Aug, 2011 [facility] [address] [id number] [address] [place] [address], [place] [address] Aug, [facility] [address] [id number] [address] [place] [address], [place] [address] 08 Aug, 2011 [facility] [address] [id number] [address] [place] [address], [place] [address] Jul, [facility] [address] [id number] [address] [place] [address], [place] [address] Jul, [facility] [address] [id number] [address] [place] [address], [place] [address] Jul, [facility] [address] [id number] [address] [place] [address], [place] [address] Jul, [facility] [address] [id number] [address] [place] [address], [place] [address] Jun, [facility] [address] [id number] [address] [place] [address], [place] [address] Jun, [facility] [address] [id number] [address] [place] [address], [place] [address] May, [facility] [address] [id number] [address] [place] [address], [place] [address] May, [facility] [address] [id number] [address] [place] [address], [place] [address] May, [facility] [address] [id number] [address] [place] [address], [place] [address] May, [facility] [address] [id number] [address] [place] [address], [place] [address] May, [facility] [address] [id number] [address] [place] [address] Apr, [facility] [address] [id number] [address] [place] [address] Apr, [facility] [address] [id number] [address] [place] [address] Apr, [facility] [address] [id number] [address] [place] [address] Jan, [facility] [address] [id number] [address] [place] [address] Dec, [facility] [address] [id number] [address] [place] [address] October, [facility] [address] [id number] [address] [place] [address] Jun, [facility] [address] [id number] [address] [place] [address] Apr, [facility] [address] [id number] [address] [place] [address] Apr, [facility] [address] [id number] [address] [place] [address] Apr, [facility] [address] [id number] [address] [place] [address] Jun, IMMUNIZATIONS No Known Immunizations SOCIAL HISTORY Never Assessed REASON FOR VISIT [facility] [place] CARE VITAL SIGNS MEDICATIONS Unknown Medications RESULTS No Results PROCEDURES No Known procedures INSTRUCTIONS MEDICATIONS ADMINISTERED No Known Medications MEDICAL (GENERAL) HISTORY Type Description Date Medical History Psychiatric disorder Medical History Hard of hearing Surgical History Neofibrous tumor Surgical History back injection Hospitalization History Intestinal blockage Hospitalization History past psychiatric hospitalizations x2
--- OUTSIDE RECORDS SUMMARY | 2020-01-25 12:49 | XMS REPORT ---
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 Name Role Phone Migration, Doctor Unavailable Unavailable PROBLEMS Type Condition ICD9-CM Code [id number] Code Onset Dates Condition S tatus SNOMED Code Problem Attention deficit R41.840 Active 76 643185 Problem Chronic hepatitis C without hepatic coma B18.2 Active 358495818 Problem Cannabis abuse F12.10 Active 35685 009 Problem Bipolar disorder, in partial remission, most rec ent episode hypomanic F31.71 Active 439776660 Problem Attention deficit hyperactivity disorder (ADHD), combi luciano type F90.2 Active 18794002 Problem Bipolar 1 disorder F31.9 Active 3 99946768 Problem H/O laminectomy Z98.89 Active 1616 34609 Problem Other chronic pain G89.29 Active 8 7835217 Problem Anxiety disorder, unspecified type F41.9 Active 726011978 ALLERGIES No Information ENCOUNTERS Encounter Location Date Diagnosis [facility] [address] [facility] [id number] [address] [place] [address] October, [facility] [address] [facility] [id number] [address] [place] [address] October, [facility] [address] [facility] [id number] [address] [place] [address] Aug, Bipolar disorder, in partial remission, most recent episode hypomanic F31.71 ; Attention deficit hyperactivity disorder (ADHD), combined type F90.2 and Anxiety disorder, unspecified type F41.9 [facility] [address] [facility] [id number] [address] [place] [address] Aug, [facility] [address] [facility] [id number] [address] [place] [address] Aug, Bipolar disorder, in partial remission, most recent episode hypomanic F31.71 [facility] [address] [id number] [address] [place] [address] Aug, [facility] [address] [id number] [address] [place] [address] Aug, Bipolar disorder, in partial remission, most recent episode hypomanic F31.71 [facility] [address] [id number] [address] [place] [address] Aug, Bipolar disorder, in partial remission, most recent episode hypomanic F31.71 ; Attention deficit hyperactivity disorder (ADHD), combined type F90.2 and Anxiety disorder, unspecified type F41.9 [facility] [address] [id number] [address] [place] [address] Aug, Low back pain M54.5 and Pain in left wrist M25.532 [facility] [address] [id number] [address] [place] [address] Aug, [facility] [address] [id number] [address] [place] [address] Jun, [facility] [address] [id number] [address] [place] [address] Apr, Bipolar disorder, in partial remission, most recent episode hypomanic F31.71 [facility] [address] [id number] [address] [place] [address] Apr, [facility] [address] [id number] [address] [place] [address] Apr, Bipolar disorder, in partial remission, most recent episode hypomanic F31.71 ; Attention deficit hyperactivity disorder (ADHD), combined type F90.2 ; Anxiety disorder, unspecified type F41.9 and 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 [facility] [address] [id number] [address] [place] [address] Apr, Bipolar disorder, in partial remission, most recent episode hypomanic F31.71 [facility] [address] [id number] [address] [place] [address] Apr, Bipolar disorder, in partial remission, most recent episode hypomanic F31.71 [facility] [address] [id number] [address] [place] [address] Mar, [facility] [address] [id number] [address] [place] [address] Mar, Bipolar disorder, in partial remission, most recent episode hypomanic F31.71 ; Encounter for immunization Z23 and Low back pain M54.5 [facility] [address] [id number] [address] [place] [address] Mar, Bipolar disorder, in partial remission, most recent episode hypomanic F31.71 [facility] [address] [id number] [address] [place] [address] Mar, Bipolar disorder, in partial remission, most recent episode hypomanic F31.71 [facility] [address] [id number] [address] [place] [address] Jan, Bipolar disorder, in partial remission, most recent episode hypomanic F31.71 [facility] [address] [id number] [address] [place] [address] Jan, Bipolar disorder, in partial remission, most recent episode hypomanic F31.71 [facility] [address] [id number] [address] [place] [address] Dec, Bipolar disorder, in partial remission, most recent episode hypomanic F31.71 [facility] [address] [id number] [address] [place] [address] Dec, Bipolar disorder, in partial remission, most recent episode hypomanic F31.71 ; Attention deficit hyperactivity disorder (ADHD), combined type F90.2 ; Anxiety disorder, unspecified type F41.9 and 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 [facility] [address] [id number] [address] [place] [address] Dec, Bipolar disorder, in partial remission, most recent episode hypomanic F31.71 [facility] [address] [facility] [id number] [address] [place] [address] Dec, Bipolar disorder, in partial remission, most recent episode hypomanic F31.71 [facility] [address] [facility] [id number] [address] [place] [address] October, Bipolar disorder, in partial remission, most recent episode hypomanic F31.71 [facility] [address] [facility] [id number] [address] [place] [address] October, [facility] [address] [facility] [id number] [address] [place] [address] October, [facility] [address] [facility] [id number] [address] [place] [address] Oct, Bipolar disorder, in partial remission, most recent episode hypomanic F31.71 ; Attention deficit hyperactivity disorder (ADHD), combined type F90.2 ; Anxiety disorder, unspecified type F41.9 and Encounter for drug screening Z02.83 [facility] [address] [facility] [id number] [address] [place] [address] Oct, Bipolar disorder, in partial remission, most recent episode hypomanic F31.71 [facility] [address] [facility] [id number] [address] [place] [address] Oct, Bipolar disorder, in partial remission, most recent episode hypomanic F31.71 [facility] [address] [facility] [id number] [address] [place] [address] Aug, Bipolar disorder, in partial remission, most recent episode hypomanic F31.71 [facility] [address] [facility] [id number] [address] [place] [address] Aug, Bipolar disorder, in partial remission, most recent episode hypomanic F31.71 [facility] [address] [facility] [id number] [address] [place] [address] Aug, Bipolar disorder, in partial remission, most recent episode hypomanic F31.71 [facility] [address] [facility] [id number] [address] [place] [address] Jul, Bipolar disorder, in partial remission, most recent episode hypomanic F31.71 ; Attention deficit hyperactivity disorder (ADHD), combined type F90.2 and Anxiety disorder, unspecified type F41.9 [facility] [address] [id number] [address] [place] [address] Jul, Bipolar disorder, in partial remission, most recent episode hypomanic F31.71 [facility] [address] [id number] [address] [place] [address] Jun, Bipolar disorder, in partial remission, most recent episode hypomanic F31.71 [facility] [address] [id number] [address] [place] [address] May, Bipolar disorder, in partial remission, most recent episode hypomanic F31.71 [facility] [address] [facility] [id number] [address] [place] [address] May, Bipolar disorder, in partial remission, most recent episode hypomanic F31.71 [facility] [address] [facility] [id number] [address] [place] [address] Apr, [facility] [address] [facility] [id number] [address] [place] [address] Apr, Bipolar disorder, in partial remission, most recent episode hypomanic F31.71 ; Attention deficit hyperactivity disorder (ADHD), combined type F90.2 ; Anxiety disorder, unspecified type F41.9 and Cannabis abuse F12.10 [facility] [address] [id number] [address] [place] [address] Apr, Attention deficit hyperactiv ity disorder (ADHD), combined type F90.2 [facility] [address] [id number] [address] [place] [address] Mar, Attention deficit hyperactiv ity disorder (ADHD), combined type F90.2 [facility] [address] [facility] [id number] [address] [place] [address] 14 Mar, 2017 Anxiety disorder, unspecifie d type F41.9 [place] [id number] [facility] [id number] [address] [place] [address] Jan, Attention deficit hyperactiv ity disorder (ADHD), combined type F90.2 [facility] [address] [facility] [id number] [address] [place] [address] Jan, Anxiety disorder, unspecifie d type F41.9 [facility] [address] [facility] [id number] [address] [place] [address] Jan, Other chronic pain G89.29 ; Chronic hepatitis C without hepatic coma B18.2 and Bipolar 1 disorder F31.9 [facility] [address] [facility] [id number] [address] [place] [address] Dec, Attention deficit hyperactiv ity disorder (ADHD), combined type F90.2 [facility] [address] [facility] [id number] [address] [place] [address] Dec, Bipolar disorder, in partial remission, most recent episode hypomanic F31.71 ; Attention deficit hyperactivity disorder (ADHD), combined type F90.2 and Anxiety disorder, unspecified type F41.9 [facility] [address] [facility] [id number] [address] [place] [address] Dec, Bipolar disorder, in partial remission, most recent episode hypomanic F31.71 ; Attention deficit hyperactivity disorder (ADHD), combined type F90.2 and Anxiety disorder, unspecified type F41.9 [facility] [address] [facility] [id number] [address] [place] [address] Dec, Bipolar 1 disorder F31.9 and Attention deficit R41.840 [facility] [address] [facility] [id number] [address] [place] [address] Oct, Other chronic pain G89.29 ; Alopecia L65.9 and Screening, lipid Z13.220 [facility] [address] [facility] [id number] [address] [place] [address] Oct, [facility] [address] [place] [id number] [address] [place] [address] Aug, [facility] [address] [id number] [address] [place] [address] Aug, Eustachian tube dysfunction, right H69.81 ; Vertigo R42 and Other chronic pain G89.29 [facility] [address] [id number] [address] [place] [address] Aug, [facility] [address] [id number] [address] [place] [address] Jun, [facility] [address] [id number] [address] [place] [address] Jun, Low back pain M54.5 and Othe r chronic pain G89.29 [facility] [address] [id number] [address] [place] [address] Jun, [facility] [address] [id number] [address] [place] [address] May, [facility] [address] [id number] [address] [place] [address] Jan, [facility] [address] [id number] [address] [place] [address] Dec, [facility] [address] [id number] [address] [place] [address] Dec, [facility] [address] [id number] [address] [place] [address] Jun, [facility] [address] [id number] [address] [place] [address] Apr, Eustachian tube dysfunction, unspecified laterality H69.80 ; Hot flashes N95.1 and Encounter for immunization Z23 [facility] [address] [id number] [address] [place] [address] Jan, [facility] [address] [id number] [address] [place] [address] Jan, [facility] [address] [id number] [address] [place] [address] Jan, [facility] [address] [id number] [address] [place] [address] Jan, [facility] [address] [id number] [address] [place] [address] Jan, Encounter to establish care V65.8 ; Bipolar 1 disorder 296.7 ; Abdominal pain 789.00 ; Constipation 564.00 ; Hard of hearing 389.9 and Drug abuse 305.90 [facility] [address] [id number] [address] [place] [address] Dec, [facility] [address] [id number] [address] [place] [address] October, [facility] [address] [id number] [address] [place] [address] October, [facility] [address] [id number] [address] [place] [address] Oct, [facility] [address] [id number] [address] [place] [address] Oct, [facility] [address] [id number] [address] [place] [address] Oct, [facility] [address] [id number] [address] [place] [address] Aug, [facility] [address] [id number] [address] [place] [address] Aug, [facility] [address] [id number] [address] [place] [address] Aug, [facility] [address] [id number] [address] [place] [address] Aug, [facility] [address] [id number] [address] [place] [address] Aug, [facility] [address] [id number] [address] [place] [address], [place] [address] Aug, 2014 [facility] [address] [id number] [address] [place] [address], [place] [address] Aug, 2014 [facility] [address] [id number] [address] [place] [address], [place] [address] Aug, 2014 [facility] [address] [id number] [address] [place] [address], [place] [address] Aug, 2014 [facility] [address] [id number] [address] [place] [address], [place] [address] Aug, 2014 [facility] [address] [id number] [address] [place] [address], [place] [address] Aug, 2014 [facility] [address] [id number] [address] [place] [address], [place] [address] Aug, 2014 [facility] [address] [id number] [address] [place] [address], [place] [address] Aug, 2014 [facility] [address] [id number] [address] [place] [address], [place] [address] Aug, 2014 [facility] [address] [id number] [address] [place] [address], [place] [address] Aug, [facility] [address] [id number] [address] [place] [address], [place] [address] Jul, [facility] [address] [id number] [address] [place] [address], [place] [address] Jul, [facility] [address] [id number] [address] [place] [address], [place] [address] Jul, [facility] [address] [id number] [address] [place] [address], [place] [address] Jul, [facility] [address] [id number] [address] [place] [address], [place] [address] Jul, [facility] [address] [id number] [address] [place] [address], [place] [address] Jul, [facility] [address] [id number] [address] [place] [address], [place] [address] Jul, [facility] [address] [id number] [address] [place] [address], [place] [address] Jul, [facility] [address] [id number] [address] [place] [address], [place] [address] Jun, [facility] [address] [id number] [address] [place] [address], [place] [address] Jun, [facility] [address] [id number] [address] [place] [address], [place] [address] Jun, [facility] [address] [id number] [address] [place] [address], [place] [address] Jun, [facility] [address] [id number] [address] [place] [address], [place] [address] Jun, [facility] [address] [id number] [address] [place] [address], [place] [address] Jun, [facility] [address] [id number] [address] [place] [address], [place] [address] Jun, [facility] [address] [id number] [address] [place] [address], [place] [address] Jun, [facility] [address] [id number] [address] [place] [address], [place] [address] Jun, [facility] [address] [id number] [address] [place] [address], [place] [address] Jun, [facility] [address] [id number] [address] [place] [address], [place] [address] Jun, [facility] [address] [id number] [address] [place] [address], [place] [address] May, [facility] [address] [id number] [address] [place] [address], [place] [address] May, [facility] [address] [id number] [address] [place] [address], [place] [address] May, [facility] [address] [id number] [address] [place] [address], [place] [address] May, [facility] [address] [id number] [address] [place] [address], [place] [address] May, [facility] [address] [id number] [address] [place] [address], [place] [address] May, [facility] [address] [id number] [address] [place] [address], [place] [address] May, [facility] [address] [id number] [address] [place] [address], [place] [address] Apr, [facility] [address] [id number] [address] [place] [address], [place] [address] Apr, [facility] [address] [id number] [address] [place] [address], [place] [address] Apr, [facility] [address] [id number] [address] [place] [address], [place] [address] Apr, [facility] [address] [id number] [address] [place] [address], [place] [address] Apr, [facility] [address] [id number] [address] [place] [address], [place] [address] Apr, [facility] [address] [id number] [address] [place] [address], [place] [address] 29 Mar, 2014 [facility] [address] [id number] [address] [place] [address], [place] [address] 29 Mar, 2013 [facility] [address] [id number] [address] [place] [address], [place] [address] 10 Mar, 2014 [facility] [address] [id number] [address] [place] [address], [place] [address] Mar, 2013 [facility] [address] [id number] [address] [place] [address], [place] [address] Mar, [facility] [address] [id number] [address] [place] [address], [place] [address] Mar, [facility] [address] [id number] [address] [place] [address], [place] [address] Jan, [facility] [address] [id number] [address] [place] [address], [place] [address] Jan, [facility] [address] [id number] [address] [place] [address], [place] [address] Jan, [facility] [address] [id number] [address] [place] [address], [place] [address] Jan, [facility] [address] [id number] [address] [place] [address], [place] [address] Dec, [facility] [address] [id number] [address] [place] [address], [place] [address] Dec, [facility] [address] [id number] [address] [place] [address], [place] [address] Dec, [facility] [address] [id number] [address] [place] [address], [place] [address] Dec, [facility] [address] [id number] [address] [place] [address], [place] [address] Dec, [facility] [address] [id number] [address] [place] [address], [place] [address] Dec, [facility] [address] [id number] [address] [place] [address], [place] [address] Dec, [facility] [address] [id number] [address] [place] [address], [place] [address] Dec, [facility] [address] [id number] [address] [place] [address], [place] [address] Dec, [facility] [address] [id number] [address] [place] [address], [place] [address] Dec, [facility] [address] [id number] [address] [place] [address], [place] [address] Dec, [facility] [address] [id number] [address] [place] [address], [place] [address] Dec, [facility] [address] [id number] [address] [place] [address], [place] [address] October, [facility] [address] [id number] [address] [place] [address], [place] [address] October, [facility] [address] [id number] [address] [place] [address], [place] [address] October, [facility] [address] [id number] [address] [place] [address], [place] [address] October, [facility] [address] [id number] [address] [place] [address], [place] [address] October, [facility] [address] [id number] [address] [place] [address], [place] [address] October, [facility] [address] [id number] [address] [place] [address], [place] [address] Oct, [facility] [address] [id number] [address] [place] [address], [place] [address] Oct, [facility] [address] [id number] [address] [place] [address], [place] [address] Oct, [facility] [address] [id number] [address] [place] [address], [place] [address] Oct, [facility] [address] [id number] [address] [place] [address], [place] [address] Oct, [facility] [address] [id number] [address] [place] [address], [place] [address] Oct, [facility] [address] [id number] [address] [place] [address], [place] [address] Oct, [facility] [address] [id number] [address] [place], [place] [address], [place] [address] Oct, [facility] [address] [id number] [facility] [place] [address] Oct, [facility] [address] [id number] [facility] [place] [address] Oct, [facility] [address] [id number] [address] [place] [address], [place] [address] Oct, [facility] [address] [id number] [address] [place] [address], [place] [address] Oct, [facility] [address] [id number] [address] [place] [address], [place] [address] Aug, [facility] [address] [id number] [address] [place] [address], [place] [address] Aug, [facility] [address] [id number] [address] [place] [address], [place] [address] Aug, [facility] [address] [id number] [address] [place] [address], [place] [address] Aug, [facility] [address] [id number] [address] [place] [address], [place] [address] Aug, [facility] [address] [id number] [address] [place] [address], [place] [address] Aug, [facility] [address] [id number] [address] [place] [address], [place] [address] Aug, [facility] [address] [id number] [address] [place] [address], [place] [address] Aug, [facility] [address] [id number] [address] [place] [address], [place] [address] Aug, [facility] [address] [id number] [address] [place] [address], [place] [address] Aug, [facility] [address] [id number] [address] [place] [address], [place] [address] Aug, [facility] [address] [id number] [address] [place] [address], [place] [address] Aug, [facility] [address] [id number] [address] [place] [address], [place] [address] Aug, [facility] [address] [id number] [address] [place] [address], [place] [address] 20 Aug, 2013 [facility] [address] [id number] [address] [place] [address], [place] [address] 14 Aug, 2013 [facility] [address] [id number] [address] [place] [address], [place] [address] 14 Aug, 2013 [facility] [address] [id number] [address] [place] [address], [place] [address] 14 Aug, 2013 [facility] [address] [id number] [address] [place] [address], [place] [address] 14 Aug, 2013 [facility] [address] [id number] [address] [place] [address], [place] [address] 07 Aug, 2013 [facility] [address] [id number] [address] [place] [address], [place] [address] 07 Aug, 2013 [facility] [address] [id number] [address] [place] [address], [place] [address] 06 Aug, 2013 [facility] [address] [id number] [address] [place] [address], [place] [address] 06 Aug, 2013 [facility] [address] [id number] [address] [place] [address], [place] [address] 04 Aug, 2013 [facility] [address] [id number] [address] [place] [address], [place] [address] 04 Aug, 2013 [facility] [address] [id number] [address] [place] [address], [place] [address] Aug, [facility] [address] [id number] [address] [place] [address], [place] [address] Jul, [facility] [address] [id number] [address] [place] [address], [place] [address] Jul, [facility] [address] [id number] [address] [place] [address], [place] [address] Jul, [facility] [address] [id number] [address] [place] [address], [place] [address] Jul, [facility] [address] [id number] [address] [place] [address], [place] [address] Jul, [facility] [address] [id number] [address] [place] [address], [place] [address] Jul, [facility] [address] [id number] [address] [place] [address], [place] [address] Jul, [facility] [address] [id number] [address] [place] [address], [place] [address] Jul, [facility] [address] [id number] [address] [place] [address], [place] [address] Jul, [facility] [address] [id number] [address] [place] [address], [place] [address] Jul, [facility] [address] [id number] [address] [place] [address], [place] [address] Jul, [facility] [address] [id number] [address] [place] [address], [place] [address] Jul, [facility] [address] [id number] [address] [place] [address], [place] [address] Jul, [facility] [address] [id number] [address] [place] [address], [place] [address] Jul, [facility] [address] [id number] [address] [place] [address], [place] [address] Jul, [facility] [address] [id number] [address] [place] [address], [place] [address] Jul, [facility] [address] [id number] [address] [place] [address], [place] [address] Jul, [facility] [address] [id number] [address] [place] [address], [place] [address] Jul, [facility] [address] [id number] [address] [place] [address], [place] [address] Jul, [facility] [address] [id number] [address] [place] [address], [place] [address] Jul, [facility] [address] [id number] [address] [place] [address], [place] [address] Jun, [facility] [address] [id number] [address] [place] [address], [place] [address] Jun, [facility] [address] [id number] [address] [place] [address], [place] [address] Jun, [facility] [address] [id number] [address] [place] [address], [place] [address] Jun, [facility] [address] [id number] [address] [place] [address], [place] [address] Jun, [facility] [address] [id number] [address] [place] [address], [place] [address] Jun, [facility] [address] [id number] [address] [place] [address], [place] [address] Jun, [facility] [address] [id number] [address] [place] [address], [place] [address] Jun, [facility] [address] [id number] [address] [place] [address], [place] [address] Jun, [facility] [address] [id number] [address] [place] [address], [place] [address] Jun, [facility] [address] [id number] [address] [place] [address], [place] [address] Jun, [facility] [address] [id number] [address] [place] [address], [place] [address] Jun, [facility] [address] [id number] [address] [place] [address], [place] [address] Jun, [facility] [address] [id number] [address] [place] [address], [place] [address] 20 Jun, 2013 [facility] [address] [id number] [address] [place] [address], [place] [address] 20 Jun, 2013 [facility] [address] [id number] [address] [place] [address], [place] [address] 18 Jun, 2013 [facility] [address] [id number] [address] [place] [address], [place] [address] 18 Jun, 2013 [facility] [address] [id number] [address] [place] [address], [place] [address] 17 Jun, 2013 [facility] [address] [id number] [address] [place] [address], [place] [address] 17 Jun, 2013 [facility] [address] [id number] [address] [place] [address], [place] [address] 13 Jun, 2013 [facility] [address] [id number] [address] [place] [address], [place] [address] 12 Jun, 2013 [facility] [address] [id number] [address] [place] [address], [place] [address] 12 Jun, 2013 [facility] [address] [id number] [address] [place] [address], [place] [address] 09 Jun, 2013 [facility] [address] [id number] [address] [place] [address], [place] [address] 05 Jun, 2013 [facility] [address] [id number] [address] [place] [address], [place] [address] 05 Jun, 2013 [facility] [address] [id number] [address] [place] [address], [place] [address] 04 Jun, 2013 [facility] [address] [id number] [address] [place] [address], [place] [address] 04 Jun, 2013 [facility] [address] [id number] [address] [place] [address], [place] [address] 17 May, 2013 [facility] [address] [id number] [address] [place] [address], [place] [address] May, [facility] [address] [id number] [address] [place] [address], [place] [address] May, [facility] [address] [id number] [address] [place] [address], [place] [address] May, [facility] [address] [id number] [address] [place] [address], [place] [address] May, [facility] [address] [id number] [address] [place] [address], [place] [address] May, [facility] [address] [id number] [address] [place] [address], [place] [address] Apr, [facility] [address] [id number] [address] [place] [address], [place] [address] Apr, [facility] [address] [id number] [address] [place] [address], [place] [address] Apr, [facility] [address] [id number] [address] [place] [address], [place] [address] Apr, [facility] [address] [id number] [address] [place] [address], [place] [address] Apr, [facility] [address] [id number] [address] [place] [address], [place] [address] Apr, [facility] [address] [id number] [address] [place] [address], [place] [address] Apr, [facility] [address] [id number] [address] [place] [address], [place] [address] Apr, [facility] [address] [id number] [address] [place] [address], [place] [address] Mar, [facility] [address] [id number] [address] [place] [address], [place] [address] 24 Mar, 2013 [facility] [address] [id number] [address] [place] [address], [place] [address] 17 Mar, 2013 [facility] [address] [id number] [address] [place] [address] [place] [address] 17 Mar, 2012 [facility] [address] [id number] [address] [place] [address], [place] [address] 11 Mar, 2012 [facility] [address] [id number] [address] [place] [address], [place] [address] 10 Mar, 2012 [facility] [address] [id number] [address] [place] [address], [place] [address] 05 Mar, 2012 [facility] [address] [id number] [address] [place] [address], [place] [address] 04 Mar, 2013 [facility] [address] [id number] [address] [place] [address], [place] [address] 20 Jan, 2013 [facility] [address] [id number] [address] [place] [address], [place] [address] Jan, [facility] [address] [id number] [address] [place] [address], [place] [address] 14 Jan, 2013 [facility] [address] [id number] [address] [place] [address], [place] [address] Jan, [facility] [address] [id number] [address] [place] [address], [place] [address] Jan, [facility] [address] [id number] [address] [place] [address], [place] [address] Jan, [facility] [address] [id number] [address] [place] [address], [place] [address] Dec, [facility] [address] [id number] [address] [place] [address], [place] [address] Dec, [facility] [address] [id number] [address] [place] [address], [place] [address] Dec, [facility] [address] [id number] [address] [place] [address], [place] [address] Dec, [facility] [address] [id number] [address] [place] [address], [place] [address] Dec, [facility] [address] [id number] [address] [place] [address], [place] [address] 17 Dec, 2012 [facility] [address] [id number] [address] [place] [address], [place] [address] 16 Dec, 2012 [facility] [address] [id number] [address] [place] [address], [place] [address] 16 Dec, 2012 [facility] [address] [id number] [address] [place] [address], [place] [address] 15 Dec, 2012 [facility] [address] [id number] [address] [place] [address], [place] [address] 10 Dec, 2012 [facility] [address] [id number] [address] [place] [address], [place] [address] 28 Dec, 2012 [facility] [address] [id number] [address] [place] [address], [place] [address] Dec, [facility] [address] [id number] [address] [place] [address], [place] [address] Dec, [facility] [address] [id number] [address] [place] [address], [place] [address] Dec, [facility] [address] [id number] [address] [place] [address], [place] [address] Dec, [facility] [address] [id number] [address] [place] [address], [place] [address] Dec, [facility] [address] [id number] [address] [place] [address], [place] [address] October, [facility] [address] [id number] [address] [place] [address], [place] [address] October, [facility] [address] [id number] [address] [place] [address], [place] [address] October, [facility] [address] [id number] [address] [place] [address], [place] [address] October, [facility] [address] [id number] [address] [place] [address], [place] [address] October, [facility] [address] [id number] [address] [place] [address], [place] [address] October, [facility] [address] [id number] [address] [place] [address], [place] [address] October, [facility] [address] [id number] [address] [place] [address], [place] [address] Oct, [facility] [address] [id number] [address] [place] [address], [place] [address] Oct, [facility] [address] [id number] [address] [place] [address], [place] [address] Oct, [facility] [address] [id number] [address] [place] [address], [place] [address] Oct, [facility] [address] [id number] [address] [place] [address], [place] [address] Oct, [facility] [address] [id number] [address] [place] [address], [place] [address] Oct, [facility] [address] [id number] [address] [place] [address], [place] [address] Oct, [facility] [address] [id number] [address] [place] [address], [place] [address] Oct, [facility] [address] [id number] [address] [place] [address], [place] [address] Oct, [facility] [address] [id number] [address] [place] [address], [place] [address] Oct, [facility] [address] [id number] [address] [place] [address], [place] [address] Oct, [facility] [address] [id number] [address] [place] [address], [place] [address] Oct, [facility] [address] [id number] [address] [place] [address], [place] [address] Aug, [facility] [address] [id number] [address] [place] [address], [place] [address] 20 Aug, 2012 [facility] [address] [id number] [address] [place] [address], [place] [address] 12 Aug, 2012 [facility] [address] [id number] [address] [place] [address], [place] [address] 06 Aug, 2012 [facility] [address] [id number] [address] [place] [address], [place] [address] 05 Aug, 2012 [facility] [address] [id number] [address] [place] [address], [place] [address] 05 Aug, 2012 [facility] [address] [id number] [address] [place] [address], [place] [address] 20 Aug, 2012 [facility] [address] [id number] [address] [place] [address], [place] [address] 14 Aug, 2012 [facility] [address] [id number] [address] [place] [address], [place] [address] 12 Aug, 2012 [facility] [address] [id number] [address] [place] [address], [place] [address] Aug, [facility] [address] [id number] [address] [place] [address], [place] [address] Jul, [facility] [address] [id number] [address] [place] [address], [place] [address] 15 Jul, 2012 [facility] [address] [id number] [address] [place] [address], [place] [address] Jul, [facility] [address] [id number] [address] [place] [address], [place] [address] Jun, [facility] [address] [id number] [address] [place] [address], [place] [address] Jun, [facility] [address] [id number] [address] [place] [address], [place] [address] Jun, [facility] [address] [id number] [address] [place] [address], [place] [address] Jun, [facility] [address] [id number] [address] [place] [address], [place] [address] 18 Jun, 2012 [facility] [address] [id number] [address] [place] [address], [place] [address] 14 Jun, 2012 [facility] [address] [id number] [address] [place] [address], [place] [address] 14 Jun, 2012 [facility] [address] [id number] [address] [place] [address], [place] [address] 13 Jun, 2012 [facility] [address] [id number] [address] [place] [address], [place] [address] 13 Jun, 2012 [facility] [address] [id number] [address] [place] [address], [place] [address] 11 Jun, 2012 [facility] [address] [id number] [address] [place] [address], [place] [address] 11 Jun, 2012 [facility] [address] [id number] [address] [place] [address], [place] [address] 11 Jun, 2012 [facility] [address] [id number] [address] [place] [address], [place] [address] 11 Jun, 2012 [facility] [address] [id number] [address] [place] [address], [place] [address] 07 Jun, 2012 [facility] [address] [id number] [address] [place] [address], [place] [address] 07 Jun, 2012 [facility] [address] [id number] [address] [place] [address], [place] [address] 06 Jun, 2012 [facility] [address] [id number] [address] [place] [address], [place] [address] Jun, [facility] [address] [id number] [address] [place] [address], [place] [address] 06 Jun, 2012 [facility] [address] [id number] [address] [place] [address], [place] [address] 06 Jun, 2012 [facility] [address] [id number] [address] [place] [address], [place] [address] 05 Jun, 2012 [facility] [address] [id number] [address] [place] [address], [place] [address] Jun, [facility] [address] [id number] [address] [place] [address], [place] [address] Jun, [facility] [address] [id number] [address] [place] [address], [place] [address] Jun, [facility] [address] [id number] [address] [place] [address], [place] [address] May, [facility] [address] [id number] [address] [place] [address], [place] [address] May, [facility] [address] [id number] [address] [place] [address], [place] [address] May, [facility] [address] [id number] [address] [place] [address], [place] [address] May, [facility] [address] [id number] [address] [place] [address], [place] [address] May, [facility] [address] [id number] [address] [place] [address], [place] [address] May, [facility] [address] [id number] [address] [place] [address], [place] [address] May, [facility] [address] [id number] [address] [place] [address], [place] [address] May, [facility] [address] [id number] [address] [place] [id number] Apr, [facility] [address] [id number] [address] [place] [address], [place] [address] Apr, [facility] [address] [id number] [address] [place] [address], [place] [address] Apr, [facility] [address] [id number] [address] [place] [id number] 16 Apr, 2012 [facility] [address] [id number] [address] [place] [address], [place] [address] 16 Apr, 2012 [facility] [address] [id number] [address] [place] [address], [place] [address] Apr, [facility] [address] [id number] [address] [place] [address], [place] [address] Apr, [facility] [address] [id number] [address] [place] [address], [place] [address] Apr, [facility] [address] [id number] [address] [place] [address], [place] [address] Apr, [facility] [address] [id number] [address] [place] [address], [place] [address] Apr, [facility] [address] [id number] [address] [place] [address], [place] [address] Apr, [facility] [address] [id number] [address] [place] [address], [place] [address] Apr, [facility] [address] [id number] [address] [place] [address], [place] [address] 19 Mar, 2012 [facility] [address] [id number] [address] [place] [id number] 18 Mar, 2012 [facility] [address] [id number] [address] [place] [address], [place] [address] 12 Mar, 2012 [facility] [address] [id number] [address] [place] [address], [place] [address] 12 Mar, 2012 [facility] [address] [id number] [address] [place] [id number] Mar, [facility] [address] [id number] [address] [place] [id number] Mar, [facility] [address] [id number] [address] [place] [address], [place] [address] 04 Mar, 2012 [facility] [address] [id number] [address] [place] [id number] Jan, [facility] [address] [id number] [address] [place] [address], [place] [address] Jan, [facility] [address] [id number] [address] [place] [address], [place] [id number] Jan, [facility] [address] [id number] [facility], [place] [id number] Jan, [facility] [address] [id number] [address] [place] [address], [place] [address] Jan, [facility] [address] [id number] [address] [place] [address], [place] [address] Jan, [facility] [address] [id number] [address] [place] [address], [place] [address] Jan, [facility] [address] [id number] [address] [place] [address], [place] [address] Jan, [facility] [address] [id number] [address] [place] [address], [place] [address] Jan, [facility] [address] [id number] [address] [place] [address], [place] [address] Jan, [facility] [address] [id number] [address] [place] [address], [place] [address] Jan, [facility] [address] [id number] [address] [place] [address], [place] [address] Dec, [facility] [address] [id number] [address] [place] [address], [place] [address] Dec, [facility] [address] [id number] [address] [place] [address], [place] [address] Dec, [facility] [address] [id number] [address] [place] [address], [place] [address] Dec, [facility] [address] [id number] [address] [place] [address], [place] [address] Dec, [facility] [address] [id number] [address] [place] [address] [place] [address] 19 Jan, 2012 [facility] [address] [id number] [address] [place] [address], [place] [address] 18 Jan, 2012 [facility] [address] [id number] [address] [place] [address], [place] [address] 17 Jan, 2012 [facility] [address] [id number] [address] [place] [address], [place] [address] 16 Jan, 2012 [facility] [address] [id number] [address] [place] [address], [place] [address] 13 Jan, 2012 [facility] [address] [id number] [address] [place] [address], [place] [address] 13 Jan, 2012 [facility] [address] [id number] [address] [place] [address], [place] [address] 02 Jan, 2012 [facility] [address] [id number] [address] [place] [address], [place] [address] Dec, [facility] [address] [id number] [address] [place] [address], [place] [address] Dec, [facility] [address] [id number] [address] [place] [address], [place] [address] Dec, [facility] [address] [id number] [address] [place] [address], [place] [address] Dec, [facility] [address] [id number] [address] [place] [address], [place] [address] 15 Dec, 2011 [facility] [address] [id number] [address] [place] [address], [place] [address] Dec, [facility] [address] [id number] [address] [place] [address], [place] [address] 05 Dec, 2011 [facility] [address] [id number] [address] [place] [address], [place] [address] October, [facility] [address] [id number] [address] [place] [address], [place] [address] October, [facility] [address] [id number] [address] [place] [address], [place] [address] October, [facility] [address] [id number] [address] [place] [address], [place] [address] October, [facility] [address] [id number] [address] [place] [address], [place] [address] October, [facility] [address] [id number] [address] [place] [address], [place] [address] October, [facility] [address] [id number] [address] [place] [address], [place] [address] Oct, [facility] [address] [id number] [address] [place] [address], [place] [address] 24 Oct, 2011 [facility] [address] [id number] [address] [place] [address], [place] [address] Oct, [facility] [address] [id number] [address] [place] [address], [place] [address] Oct, [facility] [address] [id number] [address] [place] [address], [place] [address] Oct, [facility] [address] [id number] [address] [place] [address], [place] [address] Oct, [facility] [address] [id number] [address] [place] [address], [place] [address] Oct, [facility] [address] [id number] [address] [place] [address], [place] [address] 29 Sep, 2011 [facility] [address] [id number] [address] [place] [address], [place] [address] 29 Sep, 2011 [facility] [address] [id number] [address] [place] [address], [place] [address] 19 Sep, 2011 [facility] [address] [id number] [address] [place] [address], [place] [address] 13 Sep, 2011 [facility] [address] [id number] [address] [place] [address], [place] [address] Aug, [facility] [address] [id number] [address] [place] [address], [place] [address] Aug, [facility] [address] [id number] [address] [place] [address], [place] [address] 27 Aug, 2011 [facility] [address] [id number] [address] [place] [address], [place] [address] Aug, [facility] [address] [id number] [address] [place] [address], [place] [address] 08 Aug, 2011 [facility] [address] [id number] [address] [place] [address], [place] [address] Jul, [facility] [address] [id number] [address] [place] [address], [place] [address] Jul, [facility] [address] [id number] [address] [place] [address], [place] [address] Jul, [facility] [address] [id number] [address] [place] [address], [place] [address] Jul, [facility] [address] [id number] [address] [place] [address], [place] [address] Jun, [facility] [address] [id number] [address] [place] [address], [place] [address] Jun, [facility] [address] [id number] [address] [place] [address], [place] [address] May, [facility] [address] [id number] [address] [place] [address], [place] [address] May, [facility] [address] [id number] [address] [place] [address], [place] [address] May, [facility] [address] [id number] [address] [place] [address], [place] [address] May, [facility] [address] [id number] [address] [place] [address], [place] [address] May, [facility] [address] [id number] [address] [place] [address] Apr, [facility] [address] [id number] [address] [place] [address] Apr, [facility] [address] [id number] [address] [place] [address] Apr, [facility] [address] [id number] [address] [place] [address] Jan, [facility] [address] [id number] [address] [place] [id number] Dec, [facility] [address] [id number] [address] [place] [address] October, [facility] [address] [id number] [address] [place] [address] Jun, [facility] [address] [id number] [address] [place] [address] Apr, [facility] [address] [id number] [address] [place] [address] Apr, [facility] [address] [id number] [address] [place] [address] Apr, [facility] [address] [id number] [address] [place] [address] Jun, IMMUNIZATIONS No Known Immunizations SOCIAL HISTORY Never Assessed REASON FOR VISIT [facility] [place] VITAL SIGNS MEDICATIONS Unknown Medications RESULTS No Results PROCEDURES No Known procedures INSTRUCTIONS MEDICATIONS ADMINISTERED No Known Medications MEDICAL (GENERAL) HISTORY Type Description Date Medical History Psychiatric disorder Medical History Hard of hearing Surgical History Neofibrous tumor Surgical History back injection Hospitalization History Intestinal blockage Hospitalization History past psychiatric hospitalizations x2
--- OUTSIDE RECORDS SUMMARY | 2020-01-25 12:50 | XMS REPORT ---
Author Author Ana Mayer Doctor Organization [facility] Address Unknown Phone Unavailable Care Team Providers Care Comic Writer Name Role Phone Migration, Doctor Unavailable Unavailable PROBLEMS Type Condition ICD9-CM Code DXA28-LC Code Onset Dates Condition S tatus SNOMED Code Problem Attention deficit R41.840 Active 76 981134 Problem Chronic hepatitis C without hepatic coma B18.2 Active 815554672 Problem Cannabis abuse F12.10 Active 00775 009 Problem Bipolar disorder, in partial remission, most rec ent episode hypomanic F31.71 Active 908282747 Problem Attention deficit hyperactivity disorder (ADHD), combi luciano type F90.2 Active 07418285 Problem Bipolar 1 disorder F31.9 Active 3 72302596 Problem H/O laminectomy Z98.89 Active 1616 98373 Problem Other chronic pain G89.29 Active 8 6330367 Problem Anxiety disorder, unspecified type F41.9 Active [id number] ALLERGIES No Information ENCOUNTERS Encounter Location Date Diagnosis [facility] [address] [facility] [id number] [address] [place] [address] October, [facility] [address] [facility] [id number] [address] [place] [address] October, [facility] [address] [facility] [id number] [address] [place] [address] Aug, Bipolar disorder, in partial remission, most recent episode hypomanic F31.71 ; Attention deficit hyperactivity disorder (ADHD), combined type F90.2 and Anxiety disorder, unspecified type F41.9 [facility] [address] [facility] [id number] [address] [place] [address] Aug, [facility] [address] [facility] [id number] [address] [place] [address] Aug, Bipolar disorder, in partial remission, most recent episode hypomanic F31.71 [facility] [address] [id number] [address] [place] [id number] Aug, [facility] [address] [id number] [address] [place] [address] Aug, Bipolar disorder, in partial remission, most recent episode hypomanic F31.71 [facility] [address] [id number] [address] [place] [address] Aug, Bipolar disorder, in partial remission, most recent episode hypomanic F31.71 ; Attention deficit hyperactivity disorder (ADHD), combined type F90.2 and Anxiety disorder, unspecified type F41.9 [facility] [address] [id number] [address] [place] [address] Aug, Low back pain M54.5 and Pain in left wrist M25.532 [facility] [address] [id number] [address] [place] [address] Aug, [facility] [address] [id number] [address] [place] [address] Jun, [facility] [address] [id number] [address] [place] [address] Apr, Bipolar disorder, in partial remission, most recent episode hypomanic F31.71 [facility] [address] [id number] [address] [place] [address] Apr, [facility] [address] [id number] [address] [place] [phone] Apr, Bipolar disorder, in partial remission, most recent episode hypomanic F31.71 ; Attention deficit hyperactivity disorder (ADHD), combined type F90.2 ; Anxiety disorder, unspecified type F41.9 and 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 [facility] [address] [id number] [address] [place] [address] Apr, Bipolar disorder, in partial remission, most recent episode hypomanic F31.71 [facility] [address] [id number] [address] [place] [address] Apr, Bipolar disorder, in partial remission, most recent episode hypomanic F31.71 [facility] [address] [id number] [address] [place] [phone] Mar, [facility] [address] [id number] [address] [place] [address] Mar, Bipolar disorder, in partial remission, most recent episode hypomanic F31.71 ; Encounter for immunization Z23 and Low back pain M54.5 [facility] [address] [id number] [address] [place] [address] Mar, Bipolar disorder, in partial remission, most recent episode hypomanic F31.71 [facility] [address] [id number] [address] [place] [phone] Mar, Bipolar disorder, in partial remission, most recent episode hypomanic F31.71 [facility] [address] [id number] [address] [place] [address] Jan, Bipolar disorder, in partial remission, most recent episode hypomanic F31.71 [facility] [address] [id number] [address] [place] [address] Jan, Bipolar disorder, in partial remission, most recent episode hypomanic F31.71 [facility] [address] [id number] [address] [place] [address] Dec, Bipolar disorder, in partial remission, most recent episode hypomanic F31.71 [facility] [address] [id number] [address] [place] [phone] Dec, Bipolar disorder, in partial remission, most recent episode hypomanic F31.71 ; Attention deficit hyperactivity disorder (ADHD), combined type F90.2 ; Anxiety disorder, unspecified type F41.9 and 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 [facility] [address] [id number] [address] [place] [address] Dec, Bipolar disorder, in partial remission, most recent episode hypomanic F31.71 [facility] [address] [facility] [id number] [address] [place] [address] Dec, Bipolar disorder, in partial remission, most recent episode hypomanic F31.71 [facility] [address] [facility] [id number] [address] [place] [address] October, Bipolar disorder, in partial remission, most recent episode hypomanic F31.71 [facility] [address] [facility] [id number] [address] [place] [phone] October, [facility] [address] [facility] [id number] [address] [place] [address] October, [facility] [address] [facility] [id number] [address] [place] [address] Oct, Bipolar disorder, in partial remission, most recent episode hypomanic F31.71 ; Attention deficit hyperactivity disorder (ADHD), combined type F90.2 ; Anxiety disorder, unspecified type F41.9 and Encounter for drug screening Z02.83 [facility] [address] [facility] [id number] [address] [place] [address] Oct, Bipolar disorder, in partial remission, most recent episode hypomanic F31.71 [facility] [address] [facility] [id number] [address] [place] [address] Oct, Bipolar disorder, in partial remission, most recent episode hypomanic F31.71 [facility] [address] [facility] [id number] [address] [place] [address] Aug, Bipolar disorder, in partial remission, most recent episode hypomanic F31.71 [facility] [address] [facility] [id number] [address] [place] [phone] Aug, Bipolar disorder, in partial remission, most recent episode hypomanic F31.71 [facility] [address] [facility] [id number] [address] [place] [address] Aug, Bipolar disorder, in partial remission, most recent episode hypomanic F31.71 [facility] [address] [facility] [id number] [address] [place] [address] Jul, Bipolar disorder, in partial remission, most recent episode hypomanic F31.71 ; Attention deficit hyperactivity disorder (ADHD), combined type F90.2 and Anxiety disorder, unspecified type F41.9 [facility] [address] [id number] [address] [place] [address] Jul, Bipolar disorder, in partial remission, most recent episode hypomanic F31.71 [facility] [address] [id number] [address] [place] [phone] Jun, Bipolar disorder, in partial remission, most recent episode hypomanic F31.71 [facility] [address] [id number] [address] [place] [address] May, Bipolar disorder, in partial remission, most recent episode hypomanic F31.71 [facility] [address] [facility] [id number] [address] [place] [address] May, Bipolar disorder, in partial remission, most recent episode hypomanic F31.71 [facility] [address] [facility] [id number] [address] [place] [phone] Apr, [facility] [address] [facility] [id number] [address] [place] [address] Apr, Bipolar disorder, in partial remission, most recent episode hypomanic F31.71 ; Attention deficit hyperactivity disorder (ADHD), combined type F90.2 ; Anxiety disorder, unspecified type F41.9 and Cannabis abuse F12.10 [facility] [address] [id number] [address] [place] [phone] Apr, Attention deficit hyperactiv ity disorder (ADHD), combined type F90.2 [facility] [address] [id number] [address] [place] [address] Mar, Attention deficit hyperactiv ity disorder (ADHD), combined type F90.2 [facility] [address] [facility] [id number] [address] [place] [phone] 14 Mar, 2017 Anxiety disorder, unspecifie d type F41.9 [place] [id number] [facility] [id number] [address] [place] [address] Jan, Attention deficit hyperactiv ity disorder (ADHD), combined type F90.2 [facility] [address] [facility] [id number] [address] [place] [phone] Jan, Anxiety disorder, unspecifie d type F41.9 [facility] [address] [facility] [id number] [address] [place] [address] Jan, Other chronic pain G89.29 ; Chronic hepatitis C without hepatic coma B18.2 and Bipolar 1 disorder F31.9 [facility] [address] [facility] [id number] [address] [place] [address] Dec, Attention deficit hyperactiv ity disorder (ADHD), combined type F90.2 [facility] [address] [facility] [id number] [address] [place] [phone] Dec, Bipolar disorder, in partial remission, most recent episode hypomanic F31.71 ; Attention deficit hyperactivity disorder (ADHD), combined type F90.2 and Anxiety disorder, unspecified type F41.9 [facility] [address] [facility] [id number] [address] [place] [phone] Dec, Bipolar disorder, in partial remission, most recent episode hypomanic F31.71 ; Attention deficit hyperactivity disorder (ADHD), combined type F90.2 and Anxiety disorder, unspecified type F41.9 [facility] [address] [facility] [id number] [address] [place] [address] Dec, Bipolar 1 disorder F31.9 and Attention deficit R41.840 [facility] [address] [facility] [id number] [address] [place] [address] Oct, Other chronic pain G89.29 ; Alopecia L65.9 and Screening, lipid Z13.220 [facility] [address] [facility] [id number] [address] [place] [phone] Oct, [facility] [address] [place] [id number] [address] [place] [phone] Aug, [facility] [address] [id number] [address] [place] [address] Aug, Eustachian tube dysfunction, right H69.81 ; Vertigo R42 and Other chronic pain G89.29 [facility] [address] [id number] [address] [place] [phone] Aug, [facility] [address] [id number] [address] [place] [phone] Jun, [facility] [address] [id number] [address] [place] [address] Jun, Low back pain M54.5 and Othe r chronic pain G89.29 [facility] [address] [id number] [address] [place] [phone] Jun, [facility] [address] [id number] [address] [place] [phone] May, [facility] [address] [id number] [address] [place] [phone] Jan, [facility] [address] [id number] [address] [place] [phone] Dec, [facility] [address] [id number] [address] [place] [phone] Dec, [facility] [address] [id number] [address] [place] [address] Jun, [facility] [address] [id number] [address] [place] [address] Apr, Eustachian tube dysfunction, unspecified laterality H69.80 ; Hot flashes N95.1 and Encounter for immunization Z23 [facility] [address] [id number] [address] [place] [address] Jan, [facility] [address] [id number] [address] [place] [phone] Jan, [facility] [address] [id number] [address] [place] [phone] Jan, [facility] [address] [id number] [address] [place] [address] Jan, [facility] [address] [id number] [address] [place] [address] Jan, Encounter to establish care V65.8 ; Bipolar 1 disorder 296.7 ; Abdominal pain 789.00 ; Constipation 564.00 ; Hard of hearing 389.9 and Drug abuse 305.90 [facility] [address] [id number] [address] [place] [phone] Dec, [facility] [address] [id number] [address] [place] [phone] October, [facility] [address] [id number] [address] [place] [address] October, [facility] [address] [id number] [address] [place] [phone] Oct, [facility] [address] [id number] [address] [place] [id number] Oct, [facility] [address] [id number] [address] [place] [phone] Oct, [facility] [address] [id number] [address] [place] [phone] Aug, [facility] [address] [id number] [address] [place] [phone] Aug, [facility] [address] [id number] [address] [place] [phone] Aug, [facility] [address] [id number] [address] [place] [address] Aug, [facility] [address] [id number] [address] [place] [phone] Aug, [facility] [address] [id number] [address] [place] [address], [place] [address] Aug, 2014 [facility] [address] [id number] [address] [place] [address], [place] [address] Aug, 2014 [facility] [address] [id number] [address] [place] [address], [place] [address] Aug, 2014 [facility] [address] [id number] [address] [place] [address], [place] [address] Aug, 2014 [facility] [address] [id number] [address] [place] [address], [place] [address] Aug, 2014 [facility] [address] [id number] [address] [place] [address], [place] [address] Aug, 2014 [facility] [address] [id number] [address] [place] [address], [place] [address] Aug, 2014 [facility] [address] [id number] [address] [place] [address], [place] [address] Aug, 2014 [facility] [address] [id number] [address] [place] [address], [place] [address] Aug, 2014 [facility] [address] [id number] [address] [place] [address], [place] [address] Aug, [facility] [address] [id number] [address] [place] [address], [place] [address] Jul, [facility] [address] [id number] [address] [place] [address], [place] [address] Jul, [facility] [address] [id number] [address] [place] [address], [place] [address] Jul, [facility] [address] [id number] [address] [place] [address], [place] [address] Jul, [facility] [address] [id number] [address] [place] [address], [place] [address] Jul, [facility] [address] [id number] [address] [place] [address], [place] [address] Jul, [facility] [address] [id number] [address] [place] [address], [place] [address] Jul, [facility] [address] [id number] [address] [place] [address], [place] [address] Jul, [facility] [address] [id number] [address] [place] [address], [place] [address] Jun, [facility] [address] [id number] [address] [place] [address], [place] [address] Jun, [facility] [address] [id number] [address] [place] [address], [place] [address] Jun, [facility] [address] [id number] [address] [place] [address], [place] [address] Jun, [facility] [address] [id number] [address] [place] [address], [place] [address] Jun, [facility] [address] [id number] [address] [place] [address], [place] [address] Jun, [facility] [address] [id number] [address] [place] [address], [place] [address] Jun, [facility] [address] [id number] [address] [place] [address], [place] [address] Jun, [facility] [address] [id number] [address] [place] [address], [place] [address] Jun, [facility] [address] [id number] [address] [place] [address], [place] [address] Jun, [facility] [address] [id number] [address] [place] [address], [place] [address] Jun, [facility] [address] [id number] [address] [place] [address], [place] [address] May, [facility] [address] [id number] [address] [place] [address], [place] [address] May, [facility] [address] [id number] [address] [place] [address], [place] [address] May, [facility] [address] [id number] [address] [place] [address], [place] [address] May, [facility] [address] [id number] [address] [place] [address], [place] [address] May, [facility] [address] [id number] [address] [place] [address], [place] [address] May, [facility] [address] [id number] [address] [place] [address], [place] [address] May, [facility] [address] [id number] [address] [place] [address], [place] [address] Apr, [facility] [address] [id number] [address] [place] [address], [place] [address] Apr, [facility] [address] [id number] [address] [place] [address], [place] [address] Apr, [facility] [address] [id number] [address] [place] [address], [place] [address] Apr, [facility] [address] [id number] [address] [place] [address], [place] [address] Apr, [facility] [address] [id number] [address] [place] [address], [place] [address] Apr, [facility] [address] [id number] [address] [place] [address], [place] [address] 29 Mar, 2014 [facility] [address] [id number] [address] [place] [address], [place] [address] 29 Mar, 2013 [facility] [address] [id number] [address] [place] [address], [place] [address] 10 Mar, 2014 [facility] [address] [id number] [address] [place] [address], [place] [address] Mar, 2013 [facility] [address] [id number] [address] [place] [address], [place] [address] Mar, [facility] [address] [id number] [address] [place] [address], [place] [address] Mar, [facility] [address] [id number] [address] [place] [address], [place] [address] Jan, [facility] [address] [id number] [address] [place] [address], [place] [address] Jan, [facility] [address] [id number] [address] [place] [address], [place] [address] Jan, [facility] [address] [id number] [address] [place] [address], [place] [address] Jan, [facility] [address] [id number] [address] [place] [address], [place] [address] Dec, [facility] [address] [id number] [address] [place] [address], [place] [address] Dec, [facility] [address] [id number] [address] [place] [address], [place] [address] Dec, [facility] [address] [id number] [address] [place] [address], [place] [address] Dec, [facility] [address] [id number] [address] [place] [address], [place] [address] Dec, [facility] [address] [id number] [address] [place] [address], [place] [address] Dec, [facility] [address] [id number] [address] [place] [address], [place] [address] Dec, [facility] [address] [id number] [address] [place] [address], [place] [address] Dec, [facility] [address] [id number] [address] [place] [address], [place] [address] Dec, [facility] [address] [id number] [address] [place] [address], [place] [address] Dec, [facility] [address] [id number] [address] [place] [address], [place] [address] Dec, [facility] [address] [id number] [address] [place] [address], [place] [address] Dec, [facility] [address] [id number] [address] [place] [address], [place] [address] October, [facility] [address] [id number] [address] [place] [address], [place] [address] October, [facility] [address] [id number] [address] [place] [address], [place] [address] October, [facility] [address] [id number] [address] [place] [address], [place] [address] October, [facility] [address] [id number] [address] [place] [address], [place] [address] October, [facility] [address] [id number] [address] [place] [address], [place] [address] October, [facility] [address] [id number] [address] [place] [address], [place] [address] Oct, [facility] [address] [id number] [address] [place] [address], [place] [address] Oct, [facility] [address] [id number] [address] [place] [address], [place] [address] Oct, [facility] [address] [id number] [address] [place] [address], [place] [address] Oct, [facility] [address] [id number] [address] [place] [address], [place] [address] Oct, [facility] [address] [id number] [address] [place] [address], [place] [address] Oct, [facility] [address] [id number] [address] [place] [address], [place] [address] Oct, [facility] [address] [id number] [address] [place] [address], [place] [address] Oct, [facility] [address] [id number] [facility] [place] [address] Oct, [facility] [address] [id number] [facility] [place] [address] Oct, [facility] [address] [id number] [address] [place] [address], [place] [address] Oct, [facility] [address] [id number] [address] [place] [address], [place] [address] Oct, [facility] [address] [id number] [address] [place] [address], [place] [address] Aug, [facility] [address] [id number] [address] [place] [address], [place] [address] Aug, [facility] [address] [id number] [address] [place] [address], [place] [address] Aug, [facility] [address] [id number] [address] [place] [address], [place] [address] Aug, [facility] [address] [id number] [address] [place] [address], [place] [address] Aug, [facility] [address] [id number] [address] [place] [address], [place] [address] Aug, [facility] [address] [id number] [address] [place] [address], [place] [address] Aug, [facility] [address] [id number] [address] [place] [address], [place] [address] Aug, [facility] [address] [id number] [address] [place] [address], [place] [address] Aug, [facility] [address] [id number] [address] [place] [address], [place] [address] Aug, [facility] [address] [id number] [address] [place] [address], [place] [address] Aug, [facility] [address] [id number] [address] [place] [address], [place] [address] Aug, [facility] [address] [id number] [address] [place] [address], [place] [address] Aug, [facility] [address] [id number] [address] [place] [address], [place] [address] 20 Aug, 2013 [facility] [address] [id number] [address] [place] [address], [place] [address] 14 Aug, 2013 [facility] [address] [id number] [address] [place] [address], [place] [address] 14 Aug, 2013 [facility] [address] [id number] [address] [place] [address], [place] [address] 14 Aug, 2013 [facility] [address] [id number] [address] [place] [address], [place] [address] 14 Aug, 2013 [facility] [address] [id number] [address] [place] [address], [place] [address] 07 Aug, 2013 [facility] [address] [id number] [address] [place] [address], [place] [address] 07 Aug, 2013 [facility] [address] [id number] [address] [place] [address], [place] [address] 06 Aug, 2013 [facility] [address] [id number] [address] [place] [address], [place] [address] 06 Aug, 2013 [facility] [address] [id number] [address] [place] [address], [place] [address] 04 Aug, 2013 [facility] [address] [id number] [address] [place] [address], [place] [address] 04 Aug, 2013 [facility] [address] [id number] [address] [place] [address], [place] [address] Aug, [facility] [address] [id number] [address] [place] [address], [place] [address] Jul, [facility] [address] [id number] [address] [place] [address], [place] [address] Jul, [facility] [address] [id number] [address] [place] [address], [place] [address] Jul, [facility] [address] [id number] [address] [place] [address], [place] [address] Jul, [facility] [address] [id number] [address] [place] [address], [place] [address] Jul, [facility] [address] [id number] [address] [place] [address], [place] [address] Jul, [facility] [address] [id number] [address] [place] [address], [place] [address] Jul, [facility] [address] [id number] [address] [place] [address], [place] [address] Jul, [facility] [address] [id number] [address] [place] [address], [place] [address] Jul, [facility] [address] [id number] [address] [place] [address], [place] [address] Jul, [facility] [address] [id number] [address] [place] [address], [place] [address] Jul, [facility] [address] [id number] [address] [place] [address], [place] [address] Jul, [facility] [address] [id number] [address] [place] [address], [place] [address] Jul, [facility] [address] [id number] [address] [place] [address], [place] [address] Jul, [facility] [address] [id number] [address] [place] [address], [place] [address] Jul, [facility] [address] [id number] [address] [place] [address], [place] [address] Jul, [facility] [address] [id number] [address] [place] [address], [place] [address] Jul, [facility] [address] [id number] [address] [place] [address], [place] [address] Jul, [facility] [address] [id number] [address] [place] [address], [place] [address] Jul, [facility] [address] [id number] [address] [place] [address], [place] [address] Jul, [facility] [address] [id number] [address] [place] [address], [place] [address] Jun, [facility] [address] [id number] [address] [place] [address], [place] [address] Jun, [facility] [address] [id number] [address] [place] [address], [place] [address] Jun, [facility] [address] [id number] [address] [place] [address], [place] [address] Jun, [facility] [address] [id number] [address] [place] [address], [place] [address] Jun, [facility] [address] [id number] [address] [place] [address], [place] [address] Jun, [facility] [address] [id number] [address] [place] [address], [place] [address] Jun, [facility] [address] [id number] [address] [place] [address], [place] [address] Jun, [facility] [address] [id number] [address] [place] [address], [place] [address] Jun, [facility] [address] [id number] [address] [place] [address], [place] [address] Jun, [facility] [address] [id number] [address] [place] [address], [place] [address] Jun, [facility] [address] [id number] [address] [place] [address], [place] [address] Jun, [facility] [address] [id number] [address] [place] [address], [place] [address] Jun, [facility] [address] [id number] [address] [place] [address], [place] [address] 20 Jun, 2013 [facility] [address] [id number] [address] [place] [address], [place] [address] 20 Jun, 2013 [facility] [address] [id number] [address] [place] [address], [place] [address] 18 Jun, 2013 [facility] [address] [id number] [address] [place] [address], [place] [address] 18 Jun, 2013 [facility] [address] [id number] [address] [place] [address], [place] [address] 17 Jun, 2013 [facility] [address] [id number] [address] [place] [address], [place] [address] 17 Jun, 2013 [facility] [address] [id number] [address] [place] [address], [place] [address] 13 Jun, 2013 [facility] [address] [id number] [address] [place] [address], [place] [address] 12 Jun, 2013 [facility] [address] [id number] [address] [place] [address], [place] [address] 12 Jun, 2013 [facility] [address] [id number] [address] [place] [address], [place] [address] 09 Jun, 2013 [facility] [address] [id number] [address] [place] [address], [place] [address] 05 Jun, 2013 [facility] [address] [id number] [address] [place] [address], [place] [address] 05 Jun, 2013 [facility] [address] [id number] [address] [place] [address], [place] [address] 04 Jun, 2013 [facility] [address] [id number] [address] [place] [address], [place] [address] 04 Jun, 2013 [facility] [address] [id number] [address] [place] [address], [place] [address] 17 May, 2013 [facility] [address] [id number] [address] [place] [address], [place] [address] May, [facility] [address] [id number] [address] [place] [address], [place] [address] May, [facility] [address] [id number] [address] [place] [address], [place] [address] May, [facility] [address] [id number] [address] [place] [address], [place] [address] May, [facility] [address] [id number] [address] [place] [address], [place] [address] May, [facility] [address] [id number] [address] [place] [address], [place] [address] Apr, [facility] [address] [id number] [address] [place] [address], [place] [address] Apr, [facility] [address] [id number] [address] [place] [address], [place] [address] Apr, [facility] [address] [id number] [address] [place] [address], [place] [address] Apr, [facility] [address] [id number] [address] [place] [address], [place] [address] Apr, [facility] [address] [id number] [address] [place] [address], [place] [address] Apr, [facility] [address] [id number] [address] [place] [address], [place] [address] Apr, [facility] [address] [id number] [address] [place] [address], [place] [address] Apr, [facility] [address] [id number] [address] [place] [address], [place] [address] Mar, [facility] [address] [id number] [address] [place] [address], [place] [address] 24 Mar, 2013 [facility] [address] [id number] [address] [place] [address], [place] [address] 17 Mar, 2013 [facility] [address] [id number] [address] [place] [address] [place] [address] 17 Mar, 2012 [facility] [address] [id number] [address] [place] [address], [place] [address] 11 Mar, 2012 [facility] [address] [id number] [address] [place] [address], [place] [address] 10 Mar, 2012 [facility] [address] [id number] [address] [place] [address], [place] [address] 05 Mar, 2012 [facility] [address] [id number] [address] [place] [address], [place] [address] 04 Mar, 2013 [facility] [address] [id number] [address] [place] [address], [place] [address] 20 Jan, 2013 [facility] [address] [id number] [address] [place] [address], [place] [address] Jan, [facility] [address] [id number] [address] [place] [address], [place] [address] 14 Jan, 2013 [facility] [address] [id number] [address] [place] [address], [place] [address] Jan, [facility] [address] [id number] [address] [place] [address], [place] [address] Jan, [facility] [address] [id number] [address] [place] [address], [place] [address] Jan, [facility] [address] [id number] [address] [place] [address], [place] [address] Dec, [facility] [address] [id number] [address] [place] [address], [place] [address] Dec, [facility] [address] [id number] [address] [place] [address], [place] [address] Dec, [facility] [address] [id number] [address] [place] [address], [place] [address] Dec, [facility] [address] [id number] [address] [place] [address], [place] [address] Dec, [facility] [address] [id number] [address] [place] [address], [place] [address] 17 Dec, 2012 [facility] [address] [id number] [address] [place] [address], [place] [address] 16 Dec, 2012 [facility] [address] [id number] [address] [place] [address], [place] [address] 16 Dec, 2012 [facility] [address] [id number] [address] [place] [address], [place] [address] 15 Dec, 2012 [facility] [address] [id number] [address] [place] [address], [place] [address] 10 Dec, 2012 [facility] [address] [id number] [address] [place] [address], [place] [address] 28 Dec, 2012 [facility] [address] [id number] [address] [place] [address], [place] [address] Dec, [facility] [address] [id number] [address] [place] [address], [place] [address] Dec, [facility] [address] [id number] [address] [place] [address], [place] [address] Dec, [facility] [address] [id number] [address] [place] [address], [place] [address] Dec, [facility] [address] [id number] [address] [place] [address], [place] [address] Dec, [facility] [address] [id number] [address] [place] [address], [place] [address] October, [facility] [address] [id number] [address] [place] [address], [place] [address] October, [facility] [address] [id number] [address] [place] [address], [place] [address] October, [facility] [address] [id number] [address] [place] [address], [place] [address] October, [facility] [address] [id number] [address] [place] [address], [place] [address] October, [facility] [address] [id number] [address] [place] [address], [place] [address] October, [facility] [address] [id number] [address] [place] [address], [place] [address] October, [facility] [address] [id number] [address] [place] [address], [place] [address] Oct, [facility] [address] [id number] [address] [place] [address], [place] [address] Oct, [facility] [address] [id number] [address] [place] [address], [place] [address] Oct, [facility] [address] [id number] [address] [place] [address], [place] [address] Oct, [facility] [address] [id number] [address] [place] [address], [place] [address] Oct, [facility] [address] [id number] [address] [place] [address], [place] [address] Oct, [facility] [address] [id number] [address] [place] [address], [place] [address] Oct, [facility] [address] [id number] [address] [place] [address], [place] [address] Oct, [facility] [address] [id number] [address] [place] [address], [place] [address] Oct, [facility] [address] [id number] [address] [place] [address], [place] [address] Oct, [facility] [address] [id number] [address] [place] [address], [place] [address] Oct, [facility] [address] [id number] [address] [place] [address], [place] [address] Oct, [facility] [address] [id number] [address] [place] [address], [place] [address] Aug, [facility] [address] [id number] [address] [place] [address], [place] [address] 20 Aug, 2012 [facility] [address] [id number] [address] [place] [address], [place] [address] 12 Aug, 2012 [facility] [address] [id number] [address] [place] [address], [place] [address] 06 Aug, 2012 [facility] [address] [id number] [address] [place] [address], [place] [address] 05 Aug, 2012 [facility] [address] [id number] [address] [place] [address], [place] [address] 05 Aug, 2012 [facility] [address] [id number] [address] [place] [address], [place] [address] 20 Aug, 2012 [facility] [address] [id number] [address] [place] [address], [place] [address] 14 Aug, 2012 [facility] [address] [id number] [address] [place] [address], [place] [address] 12 Aug, 2012 [facility] [address] [id number] [address] [place] [address], [place] [address] Aug, [facility] [address] [id number] [address] [place] [address], [place] [address] Jul, [facility] [address] [id number] [address] [place] [address], [place] [address] 15 Jul, 2012 [facility] [address] [id number] [address] [place] [address], [place] [address] Jul, [facility] [address] [id number] [address] [place] [address], [place] [address] Jun, [facility] [address] [id number] [address] [place] [address], [place] [address] Jun, [facility] [address] [id number] [address] [place] [address], [place] [address] Jun, [facility] [address] [id number] [address] [place] [address], [place] [address] Jun, [facility] [address] [id number] [address] [place] [address], [place] [address] 18 Jun, 2012 [facility] [address] [id number] [address] [place] [address], [place] [address] 14 Jun, 2012 [facility] [address] [id number] [address] [place] [address], [place] [address] 14 Jun, 2012 [facility] [address] [id number] [address] [place] [address], [place] [address] 13 Jun, 2012 [facility] [address] [id number] [address] [place] [address], [place] [address] 13 Jun, 2012 [facility] [address] [id number] [address] [place] [address], [place] [address] 11 Jun, 2012 [facility] [address] [id number] [address] [place] [address], [place] [address] 11 Jun, 2012 [facility] [address] [id number] [address] [place] [address], [place] [address] 11 Jun, 2012 [facility] [address] [id number] [address] [place] [address], [place] [address] 11 Jun, 2012 [facility] [address] [id number] [address] [place] [address], [place] [address] 07 Jun, 2012 [facility] [address] [id number] [address] [place] [address], [place] [address] 07 Jun, 2012 [facility] [address] [id number] [address] [place] [address], [place] [address] 06 Jun, 2012 [facility] [address] [id number] [address] [place] [address], [place] [address] Jun, [facility] [address] [id number] [address] [place] [address], [place] [address] 06 Jun, 2012 [facility] [address] [id number] [address] [place] [address], [place] [address] 06 Jun, 2012 [facility] [address] [id number] [address] [place] [address], [place] [address] 05 Jun, 2012 [facility] [address] [id number] [address] [place] [address], [place] [address] Jun, [facility] [address] [id number] [address] [place] [address], [place] [address] Jun, [facility] [address] [id number] [address] [place] [address], [place] [address] Jun, [facility] [address] [id number] [address] [place] [address], [place] [address] May, [facility] [address] [id number] [address] [place] [address], [place] [address] May, [facility] [address] [id number] [address] [place] [address], [place] [address] May, [facility] [address] [id number] [address] [place] [address], [place] [address] May, [facility] [address] [id number] [address] [place] [address], [place] [address] May, [facility] [address] [id number] [address] [place] [address], [place] [address] May, [facility] [address] [id number] [address] [place] [address], [place] [address] May, [facility] [address] [id number] [address] [place] [address], [place] [address] May, [facility] [address] [id number] [address] [place] [id number] Apr, [facility] [address] [id number] [address] [place] [address], [place] [address] Apr, [facility] [address] [id number] [address] [place] [address], [place] [address] Apr, [facility] [address] [id number] [address] [place] [id number] 16 Apr, 2012 [facility] [address] [id number] [address] [place] [address], [place] [address] 16 Apr, 2012 [facility] [address] [id number] [address] [place] [address], [place] [address] Apr, [facility] [address] [id number] [address] [place] [address], [place] [address] Apr, [facility] [address] [id number] [address] [place] [address], [place] [address] Apr, [facility] [address] [id number] [address] [place] [address], [place] [address] Apr, [facility] [address] [id number] [address] [place] [address], [place] [address] Apr, [facility] [address] [id number] [address] [place] [address], [place] [address] Apr, [facility] [address] [id number] [address] [place] [address], [place] [address] Apr, [facility] [address] [id number] [address] [place] [address], [place] [address] 19 Mar, 2012 [facility] [address] [id number] [address] [place] [id number] 18 Mar, 2012 [facility] [address] [id number] [address] [place] [address], [place] [address] 12 Mar, 2012 [facility] [address] [id number] [address] [place] [address], [place] [address] 12 Mar, 2012 [facility] [address] [id number] [address] [place] [id number] Mar, [facility] [address] [id number] [address] [place] [id number] Mar, [facility] [address] [id number] [address] [place] [address], [place] [address] 04 Mar, 2012 [facility] [address] [id number] [address] [place] [id number] Jan, [facility] [address] [id number] [address] [place] [address], [place] [address] Jan, [facility] [address] [id number] [address] [place] [address], [place] [id number] Jan, [facility] [address] [id number] [facility] [id number] Jan, [facility] [address] [id number] [address] [place] [address], [place] [address] Jan, [facility] [address] [id number] [address] [place] [address], [place] [address] Jan, [facility] [address] [id number] [address] [place] [address], [place] [address] Jan, [facility] [address] [id number] [address] [place] [address], [place] [address] Jan, [facility] [address] [id number] [address] [place] [address], [place] [address] Jan, [facility] [address] [id number] [address] [place] [address], [place] [address] Jan, [facility] [address] [id number] [address] [place] [address], [place] [address] Jan, [facility] [address] [id number] [address] [place] [address], [place] [address] Dec, [facility] [address] [id number] [address] [place] [address], [place] [address] Dec, [facility] [address] [id number] [address] [place] [address], [place] [address] Dec, [facility] [address] [id number] [address] [place] [address], [place] [address] Dec, [facility] [address] [id number] [address] [place] [address], [place] [address] Dec, [facility] [address] [id number] [address] [place] [address] [place] [id number] 19 Jan, 2012 [facility] [address] [id number] [address] [place] [address], [place] [address] 18 Jan, 2012 [facility] [address] [id number] [address] [place] [address], [place] [address] 17 Jan, 2012 [facility] [address] [id number] [address] [place] [address], [place] [address] 16 Jan, 2012 [facility] [address] [id number] [address] [place] [address], [place] [address] 13 Jan, 2012 [facility] [address] [id number] [address] [place] [address], [place] [address] 13 Jan, 2012 [facility] [address] [id number] [address] [place] [address], [place] [address] 02 Jan, 2012 [facility] [address] [id number] [address] [place] [address], [place] [address] Dec, [facility] [address] [id number] [address] [place] [address], [place] [address] Dec, [facility] [address] [id number] [address] [place] [address], [place] [address] Dec, [facility] [address] [id number] [address] [place] [address], [place] [address] Dec, [facility] [address] [id number] [address] [place] [address], [place] [address] 15 Dec, 2011 [facility] [address] [id number] [address] [place] [address], [place] [address] Dec, [facility] [address] [id number] [address] [place] [address], [place] [address] 05 Dec, 2011 [facility] [address] [id number] [address] [place] [address], [place] [address] October, [facility] [address] [id number] [address] [place] [address], [place] [address] October, [facility] [address] [id number] [address] [place] [address], [place] [address] October, [facility] [address] [id number] [address] [place] [address], [place] [address] October, [facility] [address] [id number] [address] [place] [address], [place] [address] October, [facility] [address] [id number] [address] [place] [address], [place] [address] October, [facility] [address] [id number] [address] [place] [address], [place] [address] Oct, [facility] [address] [id number] [address] [place] [address], [place] [address] 24 Oct, 2011 [facility] [address] [id number] [address] [place] [address], [place] [address] Oct, [facility] [address] [id number] [address] [place] [address], [place] [address] Oct, [facility] [address] [id number] [address] [place] [address], [place] [address] Oct, [facility] [address] [id number] [address] [place] [address], [place] [address] Oct, [facility] [address] [id number] [address] [place] [address], [place] [address] Oct, [facility] [address] [id number] [address] [place] [address], [place] [address] 29 Sep, 2011 [facility] [address] [id number] [address] [place] [address], [place] [address] 29 Sep, 2011 [facility] [address] [id number] [address] [place] [address], [place] [address] 19 Sep, 2011 [facility] [address] [id number] [address] [place] [address], [place] [address] 13 Sep, 2011 [facility] [address] [id number] [address] [place] [address], [place] [address] Aug, [facility] [address] [id number] [address] [place] [address], [place] [address] Aug, [facility] [address] [id number] [address] [place] [address], [place] [address] 27 Aug, 2011 [facility] [address] [id number] [address] [place] [address], [place] [address] Aug, [facility] [address] [id number] [address] [place] [address], [place] [address] 08 Aug, 2011 [facility] [address] [id number] [address] [place] [address], [place] [address] Jul, [facility] [address] [id number] [address] [place] [address], [place] [address] Jul, [facility] [address] [id number] [address] [place] [address], [place] [address] Jul, [facility] [address] [id number] [address] [place] [address], [place] [address] Jul, [facility] [address] [id number] [address] [place] [address], [place] [address] Jun, [facility] [address] [id number] [address] [place] [address], [place] [address] Jun, [facility] [address] [id number] [address] [place] [address], [place] [address] May, [facility] [address] [id number] [address] [place] [address], [place] [address] May, [facility] [address] [id number] [address] [place] [address], [place] [address] May, [facility] [address] [id number] [address] [place] [address], [place] [address] May, [facility] [address] [id number] [address] [place] [address], [place] [address] May, [facility] [address] [id number] [address] [place] [address] Apr, [facility] [address] [id number] [address] [place] [address] Apr, [facility] [address] [id number] [address] [place] [address] Apr, [facility] [address] [id number] [address] [place] [id number] Jan, [facility] [address] [id number] [address] [place] [address] Dec, [facility] [address] [id number] [address] [place] [address] October, [facility] [address] [id number] [address] [place] [address] Jun, [facility] [address] [id number] [address] [place] [phone] Apr, [facility] [address] [id number] [address] [place] [phone] Apr, [facility] [address] [id number] [address] [place] [phone] Apr, [facility] [address] [id number] [address] [place] [phone] Jun, IMMUNIZATIONS No Known Immunizations SOCIAL HISTORY Never Assessed REASON FOR VISIT [facility] PLAN OF CARE VITAL SIGNS MEDICATIONS Unknown Medications RESULTS No Results PROCEDURES No Known procedures INSTRUCTIONS MEDICATIONS ADMINISTERED No Known Medications MEDICAL (GENERAL) HISTORY Type Description Date Medical History Psychiatric disorder Medical History Hard of hearing Surgical History Neofibrous tumor Surgical History back injection Hospitalization History Intestinal blockage Hospitalization History past psychiatric hospitalizations x2
--- OUTSIDE RECORDS SUMMARY | 2020-01-25 12:50 | XMS REPORT ---
Author Author Ana Mayer Doctor Organization [facility] Address Unknown Phone Unavailable Care Team Providers Care Car Bracer Name Role Phone Migration, Doctor Unavailable Unavailable PROBLEMS Type Condition ICD9-CM Code OME37-ZD Code Onset Dates Condition S tatus SNOMED Code Problem Attention deficit R41.840 Active 76 134613 Problem Chronic hepatitis C without hepatic coma B18.2 Active 299602141 Problem Cannabis abuse F12.10 Active 85630 009 Problem Bipolar disorder, in partial remission, most rec ent episode hypomanic F31.71 Active 242244858 Problem Attention deficit hyperactivity disorder (ADHD), combi luciano type F90.2 Active 64562875 Problem Bipolar 1 disorder F31.9 Active 3 24032651 Problem H/O laminectomy Z98.89 Active 1616 10994 Problem Other chronic pain G89.29 Active 8 9313649 Problem Anxiety disorder, unspecified type F41.9 Active [id number] ALLERGIES No Information ENCOUNTERS Encounter Location Date Diagnosis [facility] [place] [address] [facility] [id number] [address] [place] [id number] October, [facility] [place] [address] [facility] [id number] [address] [place] [id number] October, [facility] [place] [address] [facility] [id number] [address] [place] [id number] Aug, Bipolar disorder, in partial remission, most recent episode hypomanic F31.71 ; Attention deficit hyperactivity disorder (ADHD), combined type F90.2 and Anxiety disorder, unspecified type F41.9 [facility] [place] [address] [facility] [id number] [address] [place] [id number] Aug, [facility] [place] [address] [facility] [id number] [address] [place] [id number] Aug, Bipolar disorder, in partial remission, most recent episode hypomanic F31.71 [facility] [place] [address] [id number] [address] [place] [id number] Aug, [facility] [place] [address] [id number] [address] [place] [id number] Aug, Bipolar disorder, in partial remission, most recent episode hypomanic F31.71 [facility] [place] [address] [id number] [address] [place] [id number] Aug, Bipolar disorder, in partial remission, most recent episode hypomanic F31.71 ; Attention deficit hyperactivity disorder (ADHD), combined type F90.2 and Anxiety disorder, unspecified type F41.9 [facility] [place] [address] [id number] [address] [place] [id number] Aug, Low back pain M54.5 and Pain in left wrist M25.532 [facility] [place] [address] [id number] [address] [place] [id number] Aug, [facility] [place] [address] [id number] [address] [place] [id number] Jun, [facility] [place] [address] [id number] [address] [place] [id number] Apr, Bipolar disorder, in partial remission, most recent episode hypomanic F31.71 [facility] [place] [address] [id number] [address] [place] [id number] Apr, [facility] [place] [address] [id number] [address] [place] [id number] Apr, Bipolar disorder, in partial remission, most recent episode hypomanic F31.71 ; Attention deficit hyperactivity disorder (ADHD), combined type F90.2 ; Anxiety disorder, unspecified type F41.9 and 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 [facility] [place] [address] [id number] [address] [place] [id number] Apr, Bipolar disorder, in partial remission, most recent episode hypomanic F31.71 [facility] [place] [address] [id number] [address] [place] [id number] Apr, Bipolar disorder, in partial remission, most recent episode hypomanic F31.71 [facility] [place] [address] [id number] [address] [place] [id number] Mar, [facility] [place] [address] [id number] [address] [place] [id number] Mar, Bipolar disorder, in partial remission, most recent episode hypomanic F31.71 ; Encounter for immunization Z23 and Low back pain M54.5 [facility] [place] [address] [id number] [address] [place] [id number] Mar, Bipolar disorder, in partial remission, most recent episode hypomanic F31.71 [facility] [place] [address] [id number] [address] [place] [id number] Mar, Bipolar disorder, in partial remission, most recent episode hypomanic F31.71 [facility] [place] [address] [id number] [address] [place] [id number] Jan, Bipolar disorder, in partial remission, most recent episode hypomanic F31.71 [facility] [place] [address] [id number] [address] [place] [id number] Jan, Bipolar disorder, in partial remission, most recent episode hypomanic F31.71 [facility] [place] [address] [id number] [address] [place] [id number] Dec, Bipolar disorder, in partial remission, most recent episode hypomanic F31.71 [facility] [place] [address] [id number] [address] [place] [id number] Dec, Bipolar disorder, in partial remission, most recent episode hypomanic F31.71 ; Attention deficit hyperactivity disorder (ADHD), combined type F90.2 ; Anxiety disorder, unspecified type F41.9 and 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 [facility] [place] [address] [id number] [address] [place] [id number] Dec, Bipolar disorder, in partial remission, most recent episode hypomanic F31.71 [facility] [place] [address] [facility] [id number] [address] [place] [id number] Dec, Bipolar disorder, in partial remission, most recent episode hypomanic F31.71 [facility] [place] [address] [facility] [id number] [address] [place] [id number] October, Bipolar disorder, in partial remission, most recent episode hypomanic F31.71 [facility] [place] [address] [facility] [id number] [address] [place] [id number] October, [facility] [place] [address] [facility] [id number] [address] [place] [id number] October, [facility] [place] [address] [facility] [id number] [address] [place] [id number] Oct, Bipolar disorder, in partial remission, most recent episode hypomanic F31.71 ; Attention deficit hyperactivity disorder (ADHD), combined type F90.2 ; Anxiety disorder, unspecified type F41.9 and Encounter for drug screening Z02.83 [facility] [place] [address] [facility] [id number] [address] [place] [id number] Oct, Bipolar disorder, in partial remission, most recent episode hypomanic F31.71 [facility] [place] [address] [facility] [id number] [address] [place] [id number] Oct, Bipolar disorder, in partial remission, most recent episode hypomanic F31.71 [facility] [place] [address] [facility] [id number] [address] [place] [id number] Aug, Bipolar disorder, in partial remission, most recent episode hypomanic F31.71 [facility] [place] [address] [facility] [id number] [address] [place] [id number] Aug, Bipolar disorder, in partial remission, most recent episode hypomanic F31.71 [facility] [place] [address] [facility] [id number] [address] [place] [id number] Aug, Bipolar disorder, in partial remission, most recent episode hypomanic F31.71 [facility] [place] [address] [facility] [id number] [address] [place] [id number] Jul, Bipolar disorder, in partial remission, most recent episode hypomanic F31.71 ; Attention deficit hyperactivity disorder (ADHD), combined type F90.2 and Anxiety disorder, unspecified type F41.9 [facility] [place] [address] [id number] [address] [place] [id number] Jul, Bipolar disorder, in partial remission, most recent episode hypomanic F31.71 [facility] [place] [address] [id number] [address] [place] [id number] Jun, Bipolar disorder, in partial remission, most recent episode hypomanic F31.71 [facility] [place] [address] [id number] [address] [place] [id number] May, Bipolar disorder, in partial remission, most recent episode hypomanic F31.71 [facility] [place] [address] [facility] [id number] [address] [place] [id number] May, Bipolar disorder, in partial remission, most recent episode hypomanic F31.71 [facility] [place] [address] [facility] [id number] [address] [place] [id number] Apr, [facility] [place] [address] [facility] [id number] [address] [place] [id number] Apr, Bipolar disorder, in partial remission, most recent episode hypomanic F31.71 ; Attention deficit hyperactivity disorder (ADHD), combined type F90.2 ; Anxiety disorder, unspecified type F41.9 and Cannabis abuse F12.10 [facility] [place] [address] [id number] [address] [place] [id number] Apr, Attention deficit hyperactiv ity disorder (ADHD), combined type F90.2 [facility] [place] [address] [id number] [address] [place] [id number] Mar, Attention deficit hyperactiv ity disorder (ADHD), combined type F90.2 [facility] [place] [address] [facility] [id number] [address] [place] [phone] 14 Mar, 2017 Anxiety disorder, unspecifie d type F41.9 [place] [address] [facility] [id number] [address] [place] [id number] Jan, Attention deficit hyperactiv ity disorder (ADHD), combined type F90.2 [facility] [place] [address] [facility] [id number] [address] [place] [id number] Jan, Anxiety disorder, unspecifie d type F41.9 [facility] [place] [address] [facility] [id number] [address] [place] [id number] Jan, Other chronic pain G89.29 ; Chronic hepatitis C without hepatic coma B18.2 and Bipolar 1 disorder F31.9 [facility] [place] [address] [facility] [id number] [address] [place] [id number] Dec, Attention deficit hyperactiv ity disorder (ADHD), combined type F90.2 [facility] [place] [address] [facility] [id number] [address] [place] [id number] Dec, Bipolar disorder, in partial remission, most recent episode hypomanic F31.71 ; Attention deficit hyperactivity disorder (ADHD), combined type F90.2 and Anxiety disorder, unspecified type F41.9 [facility] [place] [address] [facility] [id number] [address] [place] [id number] Dec, Bipolar disorder, in partial remission, most recent episode hypomanic F31.71 ; Attention deficit hyperactivity disorder (ADHD), combined type F90.2 and Anxiety disorder, unspecified type F41.9 [facility] [place] [address] [facility] [id number] [address] [place] [id number] Dec, Bipolar 1 disorder F31.9 and Attention deficit R41.840 [facility] [place] [address] [facility] [id number] [address] [place] [id number] Oct, Other chronic pain G89.29 ; Alopecia L65.9 and Screening, lipid Z13.220 [facility] [place] [address] [facility] [id number] [address] [place] [id number] Oct, [facility] [place] [address] [place] [id number] [address] [place] [id number] Aug, [facility] [place] [address] [id number] [address] [place] [id number] Aug, Eustachian tube dysfunction, right H69.81 ; Vertigo R42 and Other chronic pain G89.29 [facility] [place] [address] [id number] [address] [place] [id number] Aug, [facility] [place] [address] [id number] [address] [place] [id number] Jun, [facility] [place] [address] [id number] [address] [place] [id number] Jun, Low back pain M54.5 and Othe r chronic pain G89.29 [facility] [place] [address] [id number] [address] [place] [id number] Jun, [facility] [place] [address] [id number] [address] [place] [id number] May, [facility] [place] [address] [id number] [address] [place] [id number] Jan, [facility] [place] [address] [id number] [address] [place] [id number] Dec, [facility] [place] [address] [id number] [address] [place] [id number] Dec, [facility] [place] [address] [id number] [address] [place] [phone] Jun, [facility] [place] [address] [id number] [address] [place] [id number] Apr, Eustachian tube dysfunction, unspecified laterality H69.80 ; Hot flashes N95.1 and Encounter for immunization Z23 [facility] [place] [address] [id number] [address] [place] [id number] Jan, [facility] [place] [address] [id number] [address] [place] [id number] Jan, [facility] [place] [address] [id number] [address] [place] [id number] Jan, [facility] [address] [id number] [address] [place] [id number] Jan, [facility] [address] [id number] [address] [place] [id number] Jan, Encounter to establish care V65.8 ; Bipolar 1 disorder 296.7 ; Abdominal pain 789.00 ; Constipation 564.00 ; Hard of hearing 389.9 and Drug abuse 305.90 [facility] [address] [id number] [address] [place] [id number] Dec, [facility] [address] [id number] [address] [place] [id number] October, [facility] [address] [id number] [address] [place] [id number] October, [facility] [address] [id number] [address] [place] [id number] Oct, [facility] [address] [id number] [address] [place] [id number] Oct, [facility] [address] [id number] [address] [place] [id number] Oct, [facility] [address] [id number] [address] [place] [phone] Aug, [facility] [address] [id number] [address] [place] [id number] Aug, [facility] [address] [id number] [address] [place] [id number] Aug, [facility] [address] [id number] [address] [place] [id number] Aug, [facility] [address] [id number] [address] [place] [id number] Aug, [facility] [address] [id number] [address] [place] [address], [place] [id number] Aug, 2014 [facility] [address] [id number] [address] [place] [address], [place] [address] Aug, 2014 [facility] [address] [id number] [address] [place] [address], [place] [address] Aug, 2014 [facility] [address] [id number] [address] [place] [address], [place] [id number] Aug, 2014 [facility] [address] [id number] [address] [place] [address], [place] [address] Aug, 2014 [facility] [address] [id number] [address] [place] [address], [place] [address] Aug, 2014 [facility] [address] [id number] [address] [place] [address], [place] [address] Aug, 2014 [facility] [address] [id number] [address] [place] [address], [place] [address] Aug, 2014 [facility] [address] [id number] [address] [place] [address], [place] [id number] Aug, 2014 [facility] [address] [id number] [address] [place] [address], [place] [address] Aug, [facility] [address] [id number] [address] [place] [address], [place] [address] Jul, [facility] [address] [id number] [address] [place] [address], [place] [address] Jul, [facility] [address] [id number] [address] [place] [address], [place] [id number] Jul, [facility] [address] [id number] [address] [place] [address], [place] [address] Jul, [facility] [address] [id number] [address] [place] [address], [place] [id number] Jul, [facility] [address] [id number] [address] [place] [address], [place] [address] Jul, [facility] [address] [id number] [address] [place] [address], [place] [address] Jul, [facility] [address] [id number] [address] [place] [address], [place] [address] Jul, [facility] [address] [id number] [address] [place] [address], [place] [address] Jun, [facility] [address] [id number] [address] [place] [address], [place] [id number] Jun, [facility] [address] [id number] [address] [place] [address], [place] [id number] Jun, [facility] [address] [id number] [address] [place] [address], [place] [address] Jun, [facility] [address] [id number] [address] [place] [address], [place] [id number] Jun, [facility] [address] [id number] [address] [place] [address], [place] [id number] Jun, [facility] [address] [id number] [address] [place] [address], [place] [address] Jun, [facility] [address] [id number] [address] [place] [address], [place] [id number] Jun, [facility] [address] [id number] [address] [place] [address], [place] [id number] Jun, [facility] [address] [id number] [address] [place] [address], [place] [address] Jun, [facility] [address] [id number] [address] [place] [address], [place] [id number] Jun, [facility] [address] [id number] [address] [place] [address], [place] [address] May, [facility] [address] [id number] [address] [place] [address], [place] [address] May, [facility] [address] [id number] [address] [place] [address], [place] [address] May, [facility] [address] [id number] [address] [place] [address], [place] [id number] May, [facility] [address] [id number] [address] [place] [address], [place] [id number] May, [facility] [address] [id number] [address] [place] [address], [place] [address] May, [facility] [address] [id number] [address] [place] [address], [place] [id number] May, [facility] [address] [id number] [address] [place] [address], [place] [address] Apr, [facility] [address] [id number] [address] [place] [address], [place] [address] Apr, [facility] [address] [id number] [address] [place] [address], [place] [address] Apr, [facility] [address] [id number] [address] [place] [address], [place] [id number] Apr, [facility] [address] [id number] [address] [place] [address], [place] [id number] Apr, [facility] [address] [id number] [address] [place] [address], [place] [address] Apr, [facility] [address] [id number] [address] [place] [address], [place] [address] 29 Mar, 2014 [facility] [address] [id number] [address] [place] [address], [place] [address] 29 Mar, 2013 [facility] [address] [id number] [address] [place] [address], [place] [address] 10 Mar, 2014 [facility] [address] [id number] [address] [place] [address], [place] [address] Mar, 2013 [facility] [address] [id number] [address] [place] [address], [place] [address] Mar, [facility] [address] [id number] [address] [place] [address], [place] [address] Mar, [facility] [address] [id number] [address] [place] [address], [place] [address] Jan, [facility] [address] [id number] [address] [place] [address], [place] [address] Jan, [facility] [address] [id number] [address] [place] [address], [place] [address] Jan, [facility] [address] [id number] [address] [place] [address], [place] [address] Jan, [facility] [address] [id number] [address] [place] [address], [place] [address] Dec, [facility] [address] [id number] [address] [place] [address], [place] [address] Dec, [facility] [address] [id number] [address] [place] [address], [place] [address] Dec, [facility] [address] [id number] [address] [place] [address], [place] [address] Dec, [facility] [address] [id number] [address] [place] [address], [place] [address] Dec, [facility] [address] [id number] [address] [place] [address], [place] [address] Dec, [facility] [address] [id number] [address] [place] [address], [place] [address] Dec, [facility] [address] [id number] [address] [place] [address], [place] [address] Dec, [facility] [address] [id number] [address] [place] [address], [place] [address] Dec, [facility] [address] [id number] [address] [place] [address], [place] [address] Dec, [facility] [address] [id number] [address] [place] [address], [place] [address] Dec, [facility] [address] [id number] [address] [place] [address], [place] [address] Dec, [facility] [address] [id number] [address] [place] [address], [place] [address] October, [facility] [address] [id number] [address] [place] [address], [place] [address] October, [facility] [address] [id number] [address] [place] [address], [place] [address] October, [facility] [address] [id number] [address] [place] [address], [place] [address] October, [facility] [address] [id number] [address] [place] [address], [place] [address] October, [facility] [address] [id number] [address] [place] [address], [place] [address] October, [facility] [address] [id number] [address] [place] [address], [place] [address] Oct, [facility] [address] [id number] [address] [place] [address], [place] [address] Oct, [facility] [address] [id number] [address] [place] [address], [place] [address] Oct, [facility] [address] [id number] [address] [place] [address], [place] [address] Oct, [facility] [address] [id number] [address] [place] [address], [place] [address] Oct, [facility] [address] [id number] [address] [place] [address], [place] [address] Oct, [facility] [address] [id number] [address] [place] [address], [place] [address] Oct, [facility] [address] [id number] [address] [place] [address], [place] [address] Oct, [facility] [address] [id number] [facility] [place] [address] Oct, [facility] [address] [id number] [facility] [place] [address] Oct, [facility] [address] [id number] [address] [place] [address], [place] [address] Oct, [facility] [address] [id number] [address] [place] [address], [place] [address] Oct, [facility] [address] [id number] [address] [place] [address], [place] [address] Aug, [facility] [address] [id number] [address] [place] [address], [place] [address] Aug, [facility] [address] [id number] [address] [place] [address], [place] [address] Aug, [facility] [address] [id number] [address] [place] [address], [place] [address] Aug, [facility] [address] [id number] [address] [place] [address], [place] [address] Aug, [facility] [address] [id number] [address] [place] [address], [place] [address] Aug, [facility] [address] [id number] [address] [place] [address], [place] [address] Aug, [facility] [address] [id number] [address] [place] [address], [place] [address] Aug, [facility] [address] [id number] [address] [place] [address], [place] [address] Aug, [facility] [address] [id number] [address] [place] [address], [place] [address] Aug, [facility] [address] [id number] [address] [place] [address], [place] [address] Aug, [facility] [address] [id number] [address] [place] [address], [place] [address] Aug, [facility] [address] [id number] [address] [place] [address], [place] [address] Aug, [facility] [address] [id number] [address] [place] [address], [place] [address] 20 Aug, 2013 [facility] [address] [id number] [address] [place] [address], [place] [address] 14 Aug, 2013 [facility] [address] [id number] [address] [place] [address], [place] [address] 14 Aug, 2013 [facility] [address] [id number] [address] [place] [address], [place] [address] 14 Aug, 2013 [facility] [address] [id number] [address] [place] [address], [place] [address] 14 Aug, 2013 [facility] [address] [id number] [address] [place] [address], [place] [address] 07 Aug, 2013 [facility] [address] [id number] [address] [place] [address], [place] [address] 07 Aug, 2013 [facility] [address] [id number] [address] [place] [address], [place] [address] 06 Aug, 2013 [facility] [address] [id number] [address] [place] [address], [place] [address] 06 Aug, 2013 [facility] [address] [id number] [address] [place] [address], [place] [address] 04 Aug, 2013 [facility] [address] [id number] [address] [place] [address], [place] [address] 04 Aug, 2013 [facility] [address] [id number] [address] [place] [address], [place] [address] Aug, [facility] [address] [id number] [address] [place] [address], [place] [address] Jul, [facility] [address] [id number] [address] [place] [address], [place] [address] Jul, [facility] [address] [id number] [address] [place] [address], [place] [address] Jul, [facility] [address] [id number] [address] [place] [address], [place] [address] Jul, [facility] [address] [id number] [address] [place] [address], [place] [address] Jul, [facility] [address] [id number] [address] [place] [address], [place] [address] Jul, [facility] [address] [id number] [address] [place] [address], [place] [address] Jul, [facility] [address] [id number] [address] [place] [address], [place] [address] Jul, [facility] [address] [id number] [address] [place] [address], [place] [address] Jul, [facility] [address] [id number] [address] [place] [address], [place] [address] Jul, [facility] [address] [id number] [address] [place] [address], [place] [address] Jul, [facility] [address] [id number] [address] [place] [address], [place] [address] Jul, [facility] [address] [id number] [address] [place] [address], [place] [address] Jul, [facility] [address] [id number] [address] [place] [address], [place] [address] Jul, [facility] [address] [id number] [address] [place] [address], [place] [address] Jul, [facility] [address] [id number] [address] [place] [address], [place] [address] Jul, [facility] [address] [id number] [address] [place] [address], [place] [address] Jul, [facility] [address] [id number] [address] [place] [address], [place] [address] Jul, [facility] [address] [id number] [address] [place] [address], [place] [address] Jul, [facility] [address] [id number] [address] [place] [address], [place] [address] Jul, [facility] [address] [id number] [address] [place] [address], [place] [address] Jun, [facility] [address] [id number] [address] [place] [address], [place] [address] Jun, [facility] [address] [id number] [address] [place] [address], [place] [address] Jun, [facility] [address] [id number] [address] [place] [address], [place] [address] Jun, [facility] [address] [id number] [address] [place] [address], [place] [address] Jun, [facility] [address] [id number] [address] [place] [address], [place] [address] Jun, [facility] [address] [id number] [address] [place] [address], [place] [address] Jun, [facility] [address] [id number] [address] [place] [address], [place] [address] Jun, [facility] [address] [id number] [address] [place] [address], [place] [address] Jun, [facility] [address] [id number] [address] [place] [address], [place] [address] Jun, [facility] [address] [id number] [address] [place] [address], [place] [address] Jun, [facility] [address] [id number] [address] [place] [address], [place] [address] Jun, [facility] [address] [id number] [address] [place] [address], [place] [address] Jun, [facility] [address] [id number] [address] [place] [address], [place] [address] 20 Jun, 2013 [facility] [address] [id number] [address] [place] [address], [place] [address] 20 Jun, 2013 [facility] [address] [id number] [address] [place] [address], [place] [address] 18 Jun, 2013 [facility] [address] [id number] [address] [place] [address], [place] [address] 18 Jun, 2013 [facility] [address] [id number] [address] [place] [address], [place] [address] 17 Jun, 2013 [facility] [address] [id number] [address] [place] [address], [place] [address] 17 Jun, 2013 [facility] [address] [id number] [address] [place] [address], [place] [address] 13 Jun, 2013 [facility] [address] [id number] [address] [place] [address], [place] [address] 12 Jun, 2013 [facility] [address] [id number] [address] [place] [address], [place] [address] 12 Jun, 2013 [facility] [address] [id number] [address] [place] [address], [place] [address] 09 Jun, 2013 [facility] [address] [id number] [address] [place] [address], [place] [address] 05 Jun, 2013 [facility] [address] [id number] [address] [place] [address], [place] [address] 05 Jun, 2013 [facility] [address] [id number] [address] [place] [address], [place] [address] 04 Jun, 2013 [facility] [address] [id number] [address] [place] [address], [place] [address] 04 Jun, 2013 [facility] [address] [id number] [address] [place] [address], [place] [address] 17 May, 2013 [facility] [address] [id number] [address] [place] [address], [place] [address] May, [facility] [address] [id number] [address] [place] [address], [place] [address] May, [facility] [address] [id number] [address] [place] [address], [place] [address] May, [facility] [address] [id number] [address] [place] [address], [place] [address] May, [facility] [address] [id number] [address] [place] [address], [place] [address] May, [facility] [address] [id number] [address] [place] [address], [place] [address] Apr, [facility] [address] [id number] [address] [place] [address], [place] [address] Apr, [facility] [address] [id number] [address] [place] [address], [place] [address] Apr, [facility] [address] [id number] [address] [place] [address], [place] [address] Apr, [facility] [address] [id number] [address] [place] [address], [place] [address] Apr, [facility] [address] [id number] [address] [place] [address], [place] [address] Apr, [facility] [address] [id number] [address] [place] [address], [place] [address] Apr, [facility] [address] [id number] [address] [place] [address], [place] [address] Apr, [facility] [address] [id number] [address] [place] [address], [place] [address] Mar, [facility] [address] [id number] [address] [place] [address], [place] [address] 24 Mar, 2013 [facility] [address] [id number] [address] [place] [address], [place] [address] 17 Mar, 2013 [facility] [address] [id number] [address] [place] [address] [place] [address] 17 Mar, 2012 [facility] [address] [id number] [address] [place] [address], [place] [address] 11 Mar, 2012 [facility] [address] [id number] [address] [place] [address], [place] [address] 10 Mar, 2012 [facility] [address] [id number] [address] [place] [address], [place] [address] 05 Mar, 2012 [facility] [address] [id number] [address] [place] [address], [place] [address] 04 Mar, 2013 [facility] [address] [id number] [address] [place] [address], [place] [address] 20 Jan, 2013 [facility] [address] [id number] [address] [place] [address], [place] [address] Jan, [facility] [address] [id number] [address] [place] [address], [place] [address] 14 Jan, 2013 [facility] [address] [id number] [address] [place] [address], [place] [address] Jan, [facility] [address] [id number] [address] [place] [address], [place] [address] Jan, [facility] [address] [id number] [address] [place] [address], [place] [address] Jan, [facility] [address] [id number] [address] [place] [address], [place] [address] Dec, [facility] [address] [id number] [address] [place] [address], [place] [address] Dec, [facility] [address] [id number] [address] [place] [address], [place] [address] Dec, [facility] [address] [id number] [address] [place] [address], [place] [address] Dec, [facility] [address] [id number] [address] [place] [address], [place] [address] Dec, [facility] [address] [id number] [address] [place] [address], [place] [address] 17 Dec, 2012 [facility] [address] [id number] [address] [place] [address], [place] [address] 16 Dec, 2012 [facility] [address] [id number] [address] [place] [address], [place] [address] 16 Dec, 2012 [facility] [address] [id number] [address] [place] [address], [place] [address] 15 Dec, 2012 [facility] [address] [id number] [address] [place] [address], [place] [address] 10 Dec, 2012 [facility] [address] [id number] [address] [place] [address], [place] [address] 28 Dec, 2012 [facility] [address] [id number] [address] [place] [address], [place] [address] Dec, [facility] [address] [id number] [address] [place] [address], [place] [address] Dec, [facility] [address] [id number] [address] [place] [address], [place] [address] Dec, [facility] [address] [id number] [address] [place] [address], [place] [address] Dec, [facility] [address] [id number] [address] [place] [address], [place] [address] Dec, [facility] [address] [id number] [address] [place] [address], [place] [address] October, [facility] [address] [id number] [address] [place] [address], [place] [address] October, [facility] [address] [id number] [address] [place] [address], [place] [address] October, [facility] [address] [id number] [address] [place] [address], [place] [address] October, [facility] [address] [id number] [address] [place] [address], [place] [address] October, [facility] [address] [id number] [address] [place] [address], [place] [address] October, [facility] [address] [id number] [address] [place] [address], [place] [address] October, [facility] [address] [id number] [address] [place] [address], [place] [address] Oct, [facility] [address] [id number] [address] [place] [address], [place] [address] Oct, [facility] [address] [id number] [address] [place] [address], [place] [address] Oct, [facility] [address] [id number] [address] [place] [address], [place] [address] Oct, [facility] [address] [id number] [address] [place] [address], [place] [address] Oct, [facility] [address] [id number] [address] [place] [address], [place] [address] Oct, [facility] [address] [id number] [address] [place] [address], [place] [address] Oct, [facility] [address] [id number] [address] [place] [address], [place] [address] Oct, [facility] [address] [id number] [address] [place] [address], [place] [address] Oct, [facility] [address] [id number] [address] [place] [address], [place] [address] Oct, [facility] [address] [id number] [address] [place] [address], [place] [address] Oct, [facility] [address] [id number] [address] [place] [address], [place] [address] Oct, [facility] [address] [id number] [address] [place] [address], [place] [address] Aug, [facility] [address] [id number] [address] [place] [address], [place] [id number] 20 Aug, 2012 [facility] [address] [id number] [address] [place] [address], [place] [id number] 12 Aug, 2012 [facility] [address] [id number] [address] [place] [address], [place] [id number] 06 Aug, 2012 [facility] [address] [id number] [address] [place] [address], [place] [id number] 05 Aug, 2012 [facility] [address] [id number] [address] [place] [address], [place] [id number] 05 Aug, 2012 [facility] [address] [id number] [address] [place] [address], [place] [address] 20 Aug, 2012 [facility] [address] [id number] [address] [place] [address], [place] [address] 14 Aug, 2012 [facility] [address] [id number] [address] [place] [address], [place] [address] 12 Aug, 2012 [facility] [address] [id number] [address] [place] [address], [place] [address] Aug, [facility] [address] [id number] [address] [place] [address], [place] [address] Jul, [facility] [address] [id number] [address] [place] [address], [place] [id number] 15 Jul, 2012 [facility] [address] [id number] [address] [place] [address], [place] [address] Jul, [facility] [address] [id number] [address] [place] [address], [place] [address] Jun, [facility] [address] [id number] [address] [place] [address], [place] [address] Jun, [facility] [address] [id number] [address] [place] [address], [place] [address] Jun, [facility] [address] [id number] [address] [place] [address], [place] [address] Jun, [facility] [address] [id number] [address] [place] [address], [place] [address] 18 Jun, 2012 [facility] [address] [id number] [address] [place] [address], [place] [id number] 14 Jun, 2012 [facility] [address] [id number] [address] [place] [address], [place] [address] 14 Jun, 2012 [facility] [address] [id number] [address] [place] [address], [place] [address] 13 Jun, 2012 [facility] [address] [id number] [address] [place] [address], [place] [address] 13 Jun, 2012 [facility] [address] [id number] [address] [place] [address], [place] [address] 11 Jun, 2012 [facility] [address] [id number] [address] [place] [address], [place] [address] 11 Jun, 2012 [facility] [address] [id number] [address] [place] [address], [place] [address] 11 Jun, 2012 [facility] [address] [id number] [address] [place] [address], [place] [address] 11 Jun, 2012 [facility] [address] [id number] [address] [place] [address], [place] [address] 07 Jun, 2012 [facility] [address] [id number] [address] [place] [address], [place] [address] 07 Jun, 2012 [facility] [address] [id number] [address] [place] [address], [place] [address] 06 Jun, 2012 [facility] [address] [id number] [address] [place] [address], [place] [address] Jun, [facility] [address] [id number] [address] [place] [address], [place] [address] 06 Jun, 2012 [facility] [address] [id number] [address] [place] [address], [place] [address] 06 Jun, 2012 [facility] [address] [id number] [address] [place] [address], [place] [address] 05 Jun, 2012 [facility] [address] [id number] [address] [place] [address], [place] [address] Jun, [facility] [address] [id number] [address] [place] [address], [place] [address] Jun, [facility] [address] [id number] [address] [place] [address], [place] [address] Jun, [facility] [address] [id number] [address] [place] [address], [place] [address] May, [facility] [address] [id number] [address] [place] [address], [place] [address] May, [facility] [address] [id number] [address] [place] [address], [place] [address] May, [facility] [address] [id number] [address] [place] [address], [place] [address] May, [facility] [address] [id number] [address] [place] [address], [place] [address] May, [facility] [address] [id number] [address] [place] [address], [place] [address] May, [facility] [address] [id number] [address] [place] [address], [place] [address] May, [facility] [address] [id number] [address] [place] [address], [place] [address] May, [facility] [address] [id number] [address] [place] [id number] Apr, [facility] [address] [id number] [address] [place] [address], [place] [address] Apr, [facility] [address] [id number] [address] [place] [address], [place] [address] Apr, [facility] [address] [id number] [address] [place] [id number] 16 Apr, 2012 [facility] [address] [id number] [address] [place] [address], [place] [address] 16 Apr, 2012 [facility] [address] [id number] [address] [place] [address], [place] [address] Apr, [facility] [address] [id number] [address] [place] [address], [place] [address] Apr, [facility] [address] [id number] [address] [place] [address], [place] [address] Apr, [facility] [address] [id number] [address] [place] [address], [place] [address] Apr, [facility] [address] [id number] [address] [place] [address], [place] [address] Apr, [facility] [address] [id number] [address] [place] [address], [place] [address] Apr, [facility] [address] [id number] [address] [place] [address], [place] [address] Apr, [facility] [address] [id number] [address] [place] [address], [place] [address] 19 Mar, 2012 [facility] [address] [id number] [address] [place] [id number] 18 Mar, 2012 [facility] [address] [id number] [address] [place] [address], [place] [address] 12 Mar, 2012 [facility] [address] [id number] [address] [place] [address], [place] [address] 12 Mar, 2012 [facility] [address] [id number] [address] [place] [id number] Mar, [facility] [address] [id number] [address] [place] [id number] Mar, [facility] [address] [id number] [address] [place] [address], [place] [address] 04 Mar, 2012 [facility] [address] [id number] [address] [place] [id number] Jan, [facility] [address] [id number] [address] [place] [address], [place] [address] Jan, [facility] [address] [id number] [address] [place] [address], [place] [id number] Jan, [facility] [address] [id number] [facility] [id number] Jan, [facility] [address] [id number] [address] [place] [address], [place] [address] Jan, [facility] [address] [id number] [address] [place] [address], [place] [address] Jan, [facility] [address] [id number] [address] [place] [address], [place] [address] Jan, [facility] [address] [id number] [address] [place] [address], [place] [address] Jan, [facility] [address] [id number] [address] [place] [address], [place] [address] Jan, [facility] [address] [id number] [address] [place] [address], [place] [address] Jan, [facility] [address] [id number] [address] [place] [address], [place] [address] Jan, [facility] [address] [id number] [address] [place] [address], [place] [address] Dec, [facility] [address] [id number] [address] [place] [address], [place] [address] Dec, [facility] [address] [id number] [address] [place] [address], [place] [address] Dec, [facility] [address] [id number] [address] [place] [address], [place] [address] Dec, [facility] [address] [id number] [address] [place] [address], [place] [address] Dec, [facility] [address] [id number] [address] [place] [address] [place] [address] 19 Jan, 2012 [facility] [address] [id number] [address] [place] [address], [place] [address] 18 Jan, 2012 [facility] [address] [id number] [address] [place] [address], [place] [address] 17 Jan, 2012 [facility] [address] [id number] [address] [place] [address], [place] [address] 16 Jan, 2012 [facility] [address] [id number] [address] [place] [address], [place] [address] 13 Jan, 2012 [facility] [address] [id number] [address] [place] [address], [place] [address] 13 Jan, 2012 [facility] [address] [id number] [address] [place] [address], [place] [address] 02 Jan, 2012 [facility] [address] [id number] [address] [place] [address], [place] [address] Dec, [facility] [address] [id number] [address] [place] [address], [place] [address] Dec, [facility] [address] [id number] [address] [place] [address], [place] [address] Dec, [facility] [address] [id number] [address] [place] [address], [place] [address] Dec, [facility] [address] [id number] [address] [place] [address], [place] [address] 15 Dec, 2011 [facility] [address] [id number] [address] [place] [address], [place] [address] Dec, [facility] [address] [id number] [address] [place] [address], [place] [address] 05 Dec, 2011 [facility] [address] [id number] [address] [place] [address], [place] [address] October, [facility] [address] [id number] [address] [place] [address], [place] [address] October, [facility] [address] [id number] [address] [place] [address], [place] [address] October, [facility] [address] [id number] [address] [place] [address], [place] [address] October, [facility] [address] [id number] [address] [place] [address], [place] [address] October, [facility] [address] [id number] [address] [place] [address], [place] [address] October, [facility] [address] [id number] [address] [place] [address], [place] [address] Oct, [facility] [address] [id number] [address] [place] [address], [place] [address] 24 Oct, 2011 [facility] [address] [id number] [address] [place] [address], [place] [address] Oct, [facility] [address] [id number] [address] [place] [address], [place] [address] Oct, [facility] [address] [id number] [address] [place] [address], [place] [address] Oct, [facility] [address] [id number] [address] [place] [address], [place] [address] Oct, [facility] [address] [id number] [address] [place] [address], [place] [address] Oct, [facility] [address] [id number] [address] [place] [address], [place] [address] 29 Sep, 2011 [facility] [address] [id number] [address] [place] [address], [place] [address] 29 Sep, 2011 [facility] [address] [id number] [address] [place] [address], [place] [address] 19 Sep, 2011 [facility] [address] [id number] [address] [place] [address], [place] [address] 13 Sep, 2011 [facility] [address] [id number] [address] [place] [address], [place] [address] Aug, [facility] [address] [id number] [address] [place] [address], [place] [address] Aug, [facility] [address] [id number] [address] [place] [address], [place] [address] 27 Aug, 2011 [facility] [address] [id number] [address] [place] [address], [place] [address] Aug, [facility] [address] [id number] [address] [place] [address], [place] [address] 08 Aug, 2011 [facility] [address] [id number] [address] [place] [address], [place] [address] Jul, [facility] [address] [id number] [address] [place] [address], [place] [address] Jul, [facility] [address] [id number] [address] [place] [address], [place] [address] Jul, [facility] [address] [id number] [address] [place] [address], [place] [address] Jul, [facility] [address] [id number] [address] [place] [address], [place] [address] Jun, [facility] [address] [id number] [address] [place] [address], [place] [address] Jun, [facility] [address] [id number] [address] [place] [address], [place] [address] May, [facility] [address] [id number] [address] [place] [address], [place] [address] May, [facility] [address] [id number] [address] [place] [address], [place] [address] May, [facility] [address] [id number] [address] [place] [address], [place] [address] May, [facility] [address] [id number] [address] [place] [address], [place] [address] May, [facility] [address] [id number] [address] [place] [id number] Apr, [facility] [place] [address] [id number] [address] [place] [id number] Apr, [facility] [place] [address] [id number] [address] [place] [id number] Apr, [facility] [place] [address] [id number] [address] [place] [id number] Jan, [facility] [place] [address] [id number] [address] [place] [id number] Dec, [facility] [place] [address] [id number] [address] [place] [id number] October, [facility] [place] [address] [id number] [address] [place] [id number] Jun, [facility] [place] [address] [id number] [address] [place] [id number] Apr, [facility] [place] [address] [id number] [address] [place] [id number] Apr, [facility] [place] [address] [id number] [address] [place] [id number] Apr, [facility] [place] [address] [id number] [address] [place] [id number] Jun, IMMUNIZATIONS No Known Immunizations SOCIAL HISTORY Never Assessed REASON FOR VISIT [facility] PLAN OF CARE VITAL SIGNS MEDICATIONS Unknown Medications RESULTS No Results PROCEDURES No Known procedures INSTRUCTIONS MEDICATIONS ADMINISTERED No Known Medications MEDICAL (GENERAL) HISTORY Type Description Date Medical History Psychiatric disorder Medical History Hard of hearing Surgical History Neofibrous tumor Surgical History back injection Hospitalization History Intestinal blockage Hospitalization History past psychiatric hospitalizations x2
--- OUTSIDE RECORDS SUMMARY | 2020-01-25 12:51 | XMS REPORT ---
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 Name Role Phone Migration, Doctor Unavailable Unavailable PROBLEMS Type Condition ICD9-CM Code [id number] Code Onset Dates Condition S tatus SNOMED Code Problem Attention deficit R41.840 Active 76 545058 Problem Chronic hepatitis C without hepatic coma B18.2 Active 343467974 Problem Cannabis abuse F12.10 Active 40147 009 Problem Bipolar disorder, in partial remission, most rec ent episode hypomanic F31.71 Active 585541539 Problem Attention deficit hyperactivity disorder (ADHD), combi luciano type F90.2 Active 63114862 Problem Bipolar 1 disorder F31.9 Active 3 96475467 Problem H/O laminectomy Z98.89 Active 1616 18155 Problem Other chronic pain G89.29 Active 8 0060522 Problem Anxiety disorder, unspecified type F41.9 Active [id number] ALLERGIES No Information ENCOUNTERS Encounter Location Date Diagnosis [facility] [address] [facility] [id number] [address] [place] [id number] October, [facility] [address] [facility] [id number] [address] [place] [id number] October, [facility] [address] [facility] [id number] [address] [place] [address] Aug, Bipolar disorder, in partial remission, most recent episode hypomanic F31.71 ; Attention deficit hyperactivity disorder (ADHD), combined type F90.2 and Anxiety disorder, unspecified type F41.9 [facility] [address] [facility] [id number] [address] [place] [id number] Aug, [facility] [address] [facility] [id number] [address] [place] [id number] Aug, Bipolar disorder, in partial remission, most recent episode hypomanic F31.71 [facility] [address] [id number] [address] [place] [address] Aug, [facility] [address] [id number] [address] [place] [id number] Aug, Bipolar disorder, in partial remission, most recent episode hypomanic F31.71 [facility] [address] [id number] [address] [place] [address] Aug, Bipolar disorder, in partial remission, most recent episode hypomanic F31.71 ; Attention deficit hyperactivity disorder (ADHD), combined type F90.2 and Anxiety disorder, unspecified type F41.9 [facility] [address] [id number] [address] [place] [address] Aug, Low back pain M54.5 and Pain in left wrist M25.532 [facility] [address] [id number] [address] [place] [phone] Aug, [facility] [address] [id number] [address] [place] [address] Jun, [facility] [address] [id number] [address] [place] [address] Apr, Bipolar disorder, in partial remission, most recent episode hypomanic F31.71 [facility] [address] [id number] [address] [place] [address] Apr, [facility] [address] [id number] [address] [place] [address] Apr, Bipolar disorder, in partial remission, most recent episode hypomanic F31.71 ; Attention deficit hyperactivity disorder (ADHD), combined type F90.2 ; Anxiety disorder, unspecified type F41.9 and 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 [facility] [address] [id number] [address] [place] [address] Apr, Bipolar disorder, in partial remission, most recent episode hypomanic F31.71 [facility] [address] [id number] [address] [place] [address] Apr, Bipolar disorder, in partial remission, most recent episode hypomanic F31.71 [facility] [address] [id number] [address] [place] [address] Mar, [facility] [address] [id number] [address] [place] [id number] Mar, Bipolar disorder, in partial remission, most recent episode hypomanic F31.71 ; Encounter for immunization Z23 and Low back pain M54.5 [facility] [address] [id number] [address] [place] [id number] Mar, Bipolar disorder, in partial remission, most recent episode hypomanic F31.71 [facility] [address] [id number] [address] [place] [id number] Mar, Bipolar disorder, in partial remission, most recent episode hypomanic F31.71 [facility] [address] [id number] [address] [place] [phone] Jan, Bipolar disorder, in partial remission, most recent episode hypomanic F31.71 [facility] [address] [id number] [address] [place] [address] Jan, Bipolar disorder, in partial remission, most recent episode hypomanic F31.71 [facility] [address] [id number] [address] [place] [address] Dec, Bipolar disorder, in partial remission, most recent episode hypomanic F31.71 [facility] [address] [id number] [address] [place] [address] Dec, Bipolar disorder, in partial remission, most recent episode hypomanic F31.71 ; Attention deficit hyperactivity disorder (ADHD), combined type F90.2 ; Anxiety disorder, unspecified type F41.9 and 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 [facility] [address] [id number] [address] [place] [address] Dec, Bipolar disorder, in partial remission, most recent episode hypomanic F31.71 [facility] [address] [facility] [id number] [address] [place] [id number] Dec, Bipolar disorder, in partial remission, most recent episode hypomanic F31.71 [facility] [address] [facility] [id number] [address] [place] [address] October, Bipolar disorder, in partial remission, most recent episode hypomanic F31.71 [facility] [address] [facility] [id number] [address] [place] [address] October, [facility] [address] [facility] [id number] [address] [place] [address] October, [facility] [address] [facility] [id number] [address] [place] [address] Oct, Bipolar disorder, in partial remission, most recent episode hypomanic F31.71 ; Attention deficit hyperactivity disorder (ADHD), combined type F90.2 ; Anxiety disorder, unspecified type F41.9 and Encounter for drug screening Z02.83 [facility] [address] [facility] [id number] [address] [place] [phone] Oct, Bipolar disorder, in partial remission, most recent episode hypomanic F31.71 [facility] [address] [facility] [id number] [address] [place] [id number] Oct, Bipolar disorder, in partial remission, most recent episode hypomanic F31.71 [facility] [address] [facility] [id number] [address] [place] [address] Aug, Bipolar disorder, in partial remission, most recent episode hypomanic F31.71 [facility] [address] [facility] [id number] [address] [place] [address] Aug, Bipolar disorder, in partial remission, most recent episode hypomanic F31.71 [facility] [address] [facility] [id number] [address] [place] [address] Aug, Bipolar disorder, in partial remission, most recent episode hypomanic F31.71 [facility] [address] [facility] [id number] [address] [place] [phone] Jul, Bipolar disorder, in partial remission, most recent episode hypomanic F31.71 ; Attention deficit hyperactivity disorder (ADHD), combined type F90.2 and Anxiety disorder, unspecified type F41.9 [facility] [address] [id number] [address] [place] [address] Jul, Bipolar disorder, in partial remission, most recent episode hypomanic F31.71 [facility] [address] [id number] [address] [place] [id number] Jun, Bipolar disorder, in partial remission, most recent episode hypomanic F31.71 [facility] [address] [id number] [address] [place] [address] May, Bipolar disorder, in partial remission, most recent episode hypomanic F31.71 [facility] [address] [facility] [id number] [address] [place] [phone] May, Bipolar disorder, in partial remission, most recent episode hypomanic F31.71 [facility] [address] [facility] [id number] [address] [place] [address] Apr, [facility] [address] [facility] [id number] [address] [place] [address] Apr, Bipolar disorder, in partial remission, most recent episode hypomanic F31.71 ; Attention deficit hyperactivity disorder (ADHD), combined type F90.2 ; Anxiety disorder, unspecified type F41.9 and Cannabis abuse F12.10 [facility] [address] [id number] [address] [place] [id number] Apr, Attention deficit hyperactiv ity disorder (ADHD), combined type F90.2 [facility] [address] [id number] [address] [place] [id number] Mar, Attention deficit hyperactiv ity disorder (ADHD), combined type F90.2 [facility] [address] [facility] [id number] [address] [place] [id number] 14 Mar, 2017 Anxiety disorder, unspecifie d type F41.9 [place] [id number] [facility] [id number] [address] [place] [id number] Jan, Attention deficit hyperactiv ity disorder (ADHD), combined type F90.2 [facility] [address] [facility] [id number] [address] [place] [phone] Jan, Anxiety disorder, unspecifie d type F41.9 [facility] [address] [facility] [id number] [address] [place] [address] Jan, Other chronic pain G89.29 ; Chronic hepatitis C without hepatic coma B18.2 and Bipolar 1 disorder F31.9 [facility] [address] [facility] [id number] [address] [place] [id number] Dec, Attention deficit hyperactiv ity disorder (ADHD), combined type F90.2 [facility] [address] [facility] [id number] [address] [place] [id number] Dec, Bipolar disorder, in partial remission, most recent episode hypomanic F31.71 ; Attention deficit hyperactivity disorder (ADHD), combined type F90.2 and Anxiety disorder, unspecified type F41.9 [facility] [address] [facility] [id number] [address] [place] [address] Dec, Bipolar disorder, in partial remission, most recent episode hypomanic F31.71 ; Attention deficit hyperactivity disorder (ADHD), combined type F90.2 and Anxiety disorder, unspecified type F41.9 [facility] [address] [facility] [id number] [address] [place] [id number] Dec, Bipolar 1 disorder F31.9 and Attention deficit R41.840 [facility] [address] [facility] [id number] [address] [place] [id number] Oct, Other chronic pain G89.29 ; Alopecia L65.9 and Screening, lipid Z13.220 [facility] [address] [facility] [id number] [address] [place] [phone] Oct, [facility] [address] [place] [id number] [address] [place] [id number] Aug, [facility] [address] [id number] [address] [place] [id number] Aug, Eustachian tube dysfunction, right H69.81 ; Vertigo R42 and Other chronic pain G89.29 [facility] [address] [id number] [address] [place] [phone] Aug, [facility] [address] [id number] [address] [place] [id number] Jun, [facility] [address] [id number] [address] [place] [phone] Jun, Low back pain M54.5 and Othe r chronic pain G89.29 [facility] [address] [id number] [address] [place] [phone] Jun, [facility] [address] [id number] [address] [place] [phone] May, [facility] [address] [id number] [address] [place] [phone] Jan, [facility] [address] [id number] [address] [place] [id number] Dec, [facility] [address] [id number] [address] [place] [phone] Dec, [facility] [address] [id number] [address] [place] [address] Jun, [facility] [address] [id number] [address] [place] [id number] Apr, Eustachian tube dysfunction, unspecified laterality H69.80 ; Hot flashes N95.1 and Encounter for immunization Z23 [facility] [address] [id number] [address] [place] [id number] Jan, [facility] [address] [id number] [address] [place] [id number] Jan, [facility] [address] [id number] [address] [place] [id number] Jan, [facility] [address] [id number] [address] [place] [address] Jan, [facility] [address] [id number] [address] [place] [id number] Jan, Encounter to establish care V65.8 ; Bipolar 1 disorder 296.7 ; Abdominal pain 789.00 ; Constipation 564.00 ; Hard of hearing 389.9 and Drug abuse 305.90 [facility] [address] [id number] [address] [place] [id number] Dec, [facility] [address] [id number] [address] [place] [id number] October, [facility] [address] [id number] [address] [place] [id number] October, [facility] [address] [id number] [address] [place] [id number] Oct, [facility] [address] [id number] [address] [place] [id number] Oct, [facility] [address] [id number] [address] [place] [id number] Oct, [facility] [address] [id number] [address] [place] [id number] Aug, [facility] [address] [id number] [address] [place] [phone] Aug, [facility] [address] [id number] [address] [place] [id number] Aug, [facility] [address] [id number] [address] [place] [phone] Aug, [facility] [address] [id number] [address] [place] [id number] Aug, [facility] [address] [id number] [address] [place] [address], [place] [id number] Aug, 2014 [facility] [address] [id number] [address] [place] [address], [place] [address] Aug, 2014 [facility] [address] [id number] [address] [place] [address], [place] [address] Aug, 2014 [facility] [address] [id number] [address] [place] [address], [place] [id number] Aug, 2014 [facility] [address] [id number] [address] [place] [address], [place] [id number] Aug, 2014 [facility] [address] [id number] [address] [place] [address], [place] [address] Aug, 2014 [facility] [address] [id number] [address] [place] [address], [place] [address] Aug, 2014 [facility] [address] [id number] [address] [place] [address], [place] [address] Aug, 2014 [facility] [address] [id number] [address] [place] [address], [place] [address] Aug, 2014 [facility] [address] [id number] [address] [place] [address], [place] [address] Aug, [facility] [address] [id number] [address] [place] [address], [place] [address] Jul, [facility] [address] [id number] [address] [place] [address], [place] [address] Jul, [facility] [address] [id number] [address] [place] [address], [place] [id number] Jul, [facility] [address] [id number] [address] [place] [address], [place] [id number] Jul, [facility] [address] [id number] [address] [place] [address], [place] [id number] Jul, [facility] [address] [id number] [address] [place] [address], [place] [address] Jul, [facility] [address] [id number] [address] [place] [address], [place] [address] Jul, [facility] [address] [id number] [address] [place] [address], [place] [address] Jul, [facility] [address] [id number] [address] [place] [address], [place] [address] Jun, [facility] [address] [id number] [address] [place] [address], [place] [address] Jun, [facility] [address] [id number] [address] [place] [address], [place] [address] Jun, [facility] [address] [id number] [address] [place] [address], [place] [address] Jun, [facility] [address] [id number] [address] [place] [address], [place] [address] Jun, [facility] [address] [id number] [address] [place] [address], [place] [id number] Jun, [facility] [address] [id number] [address] [place] [address], [place] [id number] Jun, [facility] [address] [id number] [address] [place] [address], [place] [address] Jun, [facility] [address] [id number] [address] [place] [address], [place] [address] Jun, [facility] [address] [id number] [address] [place] [address], [place] [id number] Jun, [facility] [address] [id number] [address] [place] [address], [place] [address] Jun, [facility] [address] [id number] [address] [place] [address], [place] [address] May, [facility] [address] [id number] [address] [place] [address], [place] [address] May, [facility] [address] [id number] [address] [place] [address], [place] [address] May, [facility] [address] [id number] [address] [place] [address], [place] [address] May, [facility] [address] [id number] [address] [place] [address], [place] [address] May, [facility] [address] [id number] [address] [place] [address], [place] [address] May, [facility] [address] [id number] [address] [place] [address], [place] [address] May, [facility] [address] [id number] [address] [place] [address], [place] [address] Apr, [facility] [address] [id number] [address] [place] [address], [place] [address] Apr, [facility] [address] [id number] [address] [place] [address], [place] [address] Apr, [facility] [address] [id number] [address] [place] [address], [place] [address] Apr, [facility] [address] [id number] [address] [place] [address], [place] [address] Apr, [facility] [address] [id number] [address] [place] [address], [place] [address] Apr, [facility] [address] [id number] [address] [place] [address], [place] [id number] 29 Mar, 2014 [facility] [address] [id number] [address] [place] [address], [place] [id number] 29 Mar, 2013 [facility] [address] [id number] [address] [place] [address], [place] [id number] 10 Mar, 2014 [facility] [address] [id number] [address] [place] [address], [place] [address] Mar, 2013 [facility] [address] [id number] [address] [place] [address], [place] [address] Mar, [facility] [address] [id number] [address] [place] [address], [place] [address] Mar, [facility] [address] [id number] [address] [place] [address], [place] [address] Jan, [facility] [address] [id number] [address] [place] [address], [place] [address] Jan, [facility] [address] [id number] [address] [place] [address], [place] [address] Jan, [facility] [address] [id number] [address] [place] [address], [place] [address] Jan, [facility] [address] [id number] [address] [place] [address], [place] [address] Dec, [facility] [address] [id number] [address] [place] [address], [place] [address] Dec, [facility] [address] [id number] [address] [place] [address], [place] [address] Dec, [facility] [address] [id number] [address] [place] [address], [place] [address] Dec, [facility] [address] [id number] [address] [place] [address], [place] [address] Dec, [facility] [address] [id number] [address] [place] [address], [place] [id number] Dec, [facility] [address] [id number] [address] [place] [address], [place] [id number] Dec, [facility] [address] [id number] [address] [place] [address], [place] [id number] Dec, [facility] [address] [id number] [address] [place] [address], [place] [id number] Dec, [facility] [address] [id number] [address] [place] [address], [place] [id number] Dec, [facility] [address] [id number] [address] [place] [address], [place] [id number] Dec, [facility] [address] [id number] [address] [place] [address], [place] [id number] Dec, [facility] [address] [id number] [address] [place] [address], [place] [id number] October, [facility] [address] [id number] [address] [place] [address], [place] [id number] October, [facility] [address] [id number] [address] [place] [address], [place] [address] October, [facility] [address] [id number] [address] [place] [address], [place] [id number] October, [facility] [address] [id number] [address] [place] [address], [place] [id number] October, [facility] [address] [id number] [address] [place] [address], [place] [id number] October, [facility] [address] [id number] [address] [place] [address], [place] [id number] Oct, [facility] [address] [id number] [address] [place] [address], [place] [id number] Oct, [facility] [address] [id number] [address] [place] [address], [place] [id number] Oct, [facility] [address] [id number] [address] [place] [address], [place] [id number] Oct, [facility] [address] [id number] [address] [place] [address], [place] [id number] Oct, [facility] [address] [id number] [address] [place] [address], [place] [id number] Oct, [facility] [address] [address] [id number] [address] [place] [address], [place] [address] Oct, [facility] [address] [id number] [address] [place] [address], [place] [address] Oct, [facility] [address] [id number] [facility] [place] [address] Oct, [facility] [address] [id number] [facility] [place] [address] Oct, [facility] [address] [id number] [address] [place] [address], [place] [address] Oct, [facility] [address] [id number] [address] [place] [address], [place] [address] Oct, [facility] [address] [id number] [address] [place] [address], [place] [address] Aug, [facility] [address] [id number] [address] [place] [address], [place] [address] Aug, [facility] [address] [id number] [address] [place] [address], [place] [address] Aug, [facility] [address] [id number] [address] [place] [address], [place] [address] Aug, [facility] [address] [id number] [address] [place] [address], [place] [address] Aug, [facility] [address] [id number] [address] [place] [address], [place] [address] Aug, [facility] [address] [id number] [address] [place] [address], [place] [address] Aug, [facility] [address] [id number] [address] [place] [address], [place] [address] Aug, [facility] [address] [id number] [address] [place] [address], [place] [address] Aug, [facility] [address] [id number] [address] [place] [address], [place] [address] Aug, [facility] [address] [id number] [address] [place] [address], [place] [address] Aug, [facility] [address] [id number] [address] [place] [address], [place] [address] Aug, [facility] [address] [id number] [address] [place] [address], [place] [address] Aug, [facility] [address] [id number] [address] [place] [address], [place] [address] 20 Aug, 2013 [facility] [address] [id number] [address] [place] [address], [place] [address] 14 Aug, 2013 [facility] [address] [id number] [address] [place] [address], [place] [address] 14 Aug, 2013 [facility] [address] [id number] [address] [place] [address], [place] [address] 14 Aug, 2013 [facility] [address] [id number] [address] [place] [address], [place] [address] 14 Aug, 2013 [facility] [address] [id number] [address] [place] [address], [place] [address] 07 Aug, 2013 [facility] [address] [id number] [address] [place] [address], [place] [address] 07 Aug, 2013 [facility] [address] [id number] [address] [place] [address], [place] [address] 06 Aug, 2013 [facility] [address] [id number] [address] [place] [address], [place] [address] 06 Aug, 2013 [facility] [address] [id number] [address] [place] [address], [place] [address] 04 Aug, 2013 [facility] [address] [id number] [address] [place] [address], [place] [address] 04 Aug, 2013 [facility] [address] [id number] [address] [place] [address], [place] [address] Aug, [facility] [address] [id number] [address] [place] [address], [place] [address] Jul, [facility] [address] [id number] [address] [place] [address], [place] [address] Jul, [facility] [address] [id number] [address] [place] [address], [place] [address] Jul, [facility] [address] [id number] [address] [place] [address], [place] [address] Jul, [facility] [address] [id number] [address] [place] [address], [place] [address] Jul, [facility] [address] [id number] [address] [place] [address], [place] [address] Jul, [facility] [address] [id number] [address] [place] [address], [place] [address] Jul, [facility] [address] [id number] [address] [place] [address], [place] [address] Jul, [facility] [address] [id number] [address] [place] [address], [place] [address] Jul, [facility] [address] [id number] [address] [place] [address], [place] [address] Jul, [facility] [address] [id number] [address] [place] [address], [place] [address] Jul, [facility] [address] [id number] [address] [place] [address], [place] [address] Jul, [facility] [address] [id number] [address] [place] [address], [place] [address] Jul, [facility] [address] [id number] [address] [place] [address], [place] [address] Jul, [facility] [address] [id number] [address] [place] [address], [place] [address] Jul, [facility] [address] [id number] [address] [place] [address], [place] [address] Jul, [facility] [address] [id number] [address] [place] [address], [place] [address] Jul, [facility] [address] [id number] [address] [place] [address], [place] [address] Jul, [facility] [address] [id number] [address] [place] [address], [place] [address] Jul, [facility] [address] [id number] [address] [place] [address], [place] [address] Jul, [facility] [address] [id number] [address] [place] [address], [place] [address] Jun, [facility] [address] [id number] [address] [place] [address], [place] [address] Jun, [facility] [address] [id number] [address] [place] [address], [place] [address] Jun, [facility] [address] [id number] [address] [place] [address], [place] [address] Jun, [facility] [address] [id number] [address] [place] [address], [place] [address] Jun, [facility] [address] [id number] [address] [place] [address], [place] [address] Jun, [facility] [address] [id number] [address] [place] [address], [place] [address] Jun, [facility] [address] [id number] [address] [place] [address], [place] [address] Jun, [facility] [address] [id number] [address] [place] [address], [place] [address] Jun, [facility] [address] [id number] [address] [place] [address], [place] [address] Jun, [facility] [address] [id number] [address] [place] [address], [place] [address] Jun, [facility] [address] [id number] [address] [place] [address], [place] [address] Jun, [facility] [address] [id number] [address] [place] [address], [place] [address] Jun, [facility] [address] [id number] [address] [place] [address], [place] [address] 20 Jun, 2013 [facility] [address] [id number] [address] [place] [address], [place] [address] 20 Jun, 2013 [facility] [address] [id number] [address] [place] [address], [place] [address] 18 Jun, 2013 [facility] [address] [id number] [address] [place] [address], [place] [address] 18 Jun, 2013 [facility] [address] [id number] [address] [place] [address], [place] [address] 17 Jun, 2013 [facility] [address] [id number] [address] [place] [address], [place] [address] 17 Jun, 2013 [facility] [address] [id number] [address] [place] [address], [place] [address] 13 Jun, 2013 [facility] [address] [id number] [address] [place] [address], [place] [address] 12 Jun, 2013 [facility] [address] [id number] [address] [place] [address], [place] [address] 12 Jun, 2013 [facility] [address] [id number] [address] [place] [address], [place] [address] 09 Jun, 2013 [facility] [address] [id number] [address] [place] [address], [place] [address] 05 Jun, 2013 [facility] [address] [id number] [address] [place] [address], [place] [address] 05 Jun, 2013 [facility] [address] [id number] [address] [place] [address], [place] [address] 04 Jun, 2013 [facility] [address] [id number] [address] [place] [address], [place] [address] 04 Jun, 2013 [facility] [address] [id number] [address] [place] [address], [place] [address] 17 May, 2013 [facility] [address] [id number] [address] [place] [address], [place] [address] May, [facility] [address] [id number] [address] [place] [address], [place] [address] May, [facility] [address] [id number] [address] [place] [address], [place] [address] May, [facility] [address] [id number] [address] [place] [address], [place] [address] May, [facility] [address] [id number] [address] [place] [address], [place] [address] May, [facility] [address] [id number] [address] [place] [address], [place] [address] Apr, [facility] [address] [id number] [address] [place] [address], [place] [address] Apr, [facility] [address] [id number] [address] [place] [address], [place] [address] Apr, [facility] [address] [id number] [address] [place] [address], [place] [address] Apr, [facility] [address] [id number] [address] [place] [address], [place] [address] Apr, [facility] [address] [id number] [address] [place] [address], [place] [address] Apr, [facility] [address] [id number] [address] [place] [address], [place] [address] Apr, [facility] [address] [id number] [address] [place] [address], [place] [address] Apr, [facility] [address] [id number] [address] [place] [address], [place] [address] Mar, [facility] [address] [id number] [address] [place] [address], [place] [address] 24 Mar, 2013 [facility] [address] [id number] [address] [place] [address], [place] [address] 17 Mar, 2013 [facility] [address] [id number] [address] [place] [address] [place] [address] 17 Mar, 2012 [facility] [address] [id number] [address] [place] [address], [place] [address] 11 Mar, 2012 [facility] [address] [id number] [address] [place] [address], [place] [address] 10 Mar, 2012 [facility] [address] [id number] [address] [place] [address], [place] [address] 05 Mar, 2012 [facility] [address] [id number] [address] [place] [address], [place] [address] 04 Mar, 2013 [facility] [address] [id number] [address] [place] [address], [place] [address] 20 Jan, 2013 [facility] [address] [id number] [address] [place] [address], [place] [address] Jan, [facility] [address] [id number] [address] [place] [address], [place] [address] 14 Jan, 2013 [facility] [address] [id number] [address] [place] [address], [place] [address] Jan, [facility] [address] [id number] [address] [place] [address], [place] [address] Jan, [facility] [address] [id number] [address] [place] [address], [place] [address] Jan, [facility] [address] [id number] [address] [place] [address], [place] [address] Dec, [facility] [address] [id number] [address] [place] [address], [place] [address] Dec, [facility] [address] [id number] [address] [place] [address], [place] [address] Dec, [facility] [address] [id number] [address] [place] [address], [place] [address] Dec, [facility] [address] [id number] [address] [place] [address], [place] [address] Dec, [facility] [address] [id number] [address] [place] [address], [place] [address] 17 Dec, 2012 [facility] [address] [id number] [address] [place] [address], [place] [address] 16 Dec, 2012 [facility] [address] [id number] [address] [place] [address], [place] [address] 16 Dec, 2012 [facility] [address] [id number] [address] [place] [address], [place] [address] 15 Dec, 2012 [facility] [address] [id number] [address] [place] [address], [place] [address] 10 Dec, 2012 [facility] [address] [id number] [address] [place] [address], [place] [address] 28 Dec, 2012 [facility] [address] [id number] [address] [place] [address], [place] [address] Dec, [facility] [address] [id number] [address] [place] [address], [place] [address] Dec, [facility] [address] [id number] [address] [place] [address], [place] [address] Dec, [facility] [address] [id number] [address] [place] [address], [place] [address] Dec, [facility] [address] [id number] [address] [place] [address], [place] [address] Dec, [facility] [address] [id number] [address] [place] [address], [place] [address] October, [facility] [address] [id number] [address] [place] [address], [place] [address] October, [facility] [address] [id number] [address] [place] [address], [place] [address] October, [facility] [address] [id number] [address] [place] [address], [place] [address] October, [facility] [address] [id number] [address] [place] [address], [place] [address] October, [facility] [address] [id number] [address] [place] [address], [place] [address] October, [facility] [address] [id number] [address] [place] [address], [place] [address] October, [facility] [address] [id number] [address] [place] [address], [place] [address] Oct, [facility] [address] [id number] [address] [place] [address], [place] [address] Oct, [facility] [address] [id number] [address] [place] [address], [place] [address] Oct, [facility] [address] [id number] [address] [place] [address], [place] [address] Oct, [facility] [address] [id number] [address] [place] [address], [place] [address] Oct, [facility] [address] [id number] [address] [place] [address], [place] [address] Oct, [facility] [address] [id number] [address] [place] [address], [place] [address] Oct, [facility] [address] [id number] [address] [place] [address], [place] [address] Oct, [facility] [address] [id number] [address] [place] [address], [place] [address] Oct, [facility] [address] [id number] [address] [place] [address], [place] [address] Oct, [facility] [address] [id number] [address] [place] [address], [place] [address] Oct, [facility] [address] [id number] [address] [place] [address], [place] [address] Oct, [facility] [address] [id number] [address] [place] [address], [place] [address] Aug, [facility] [address] [id number] [address] [place] [address], [place] [address] 20 Aug, 2012 [facility] [address] [id number] [address] [place] [address], [place] [address] 12 Aug, 2012 [facility] [address] [id number] [address] [place] [address], [place] [address] 06 Aug, 2012 [facility] [address] [id number] [address] [place] [address], [place] [address] 05 Aug, 2012 [facility] [address] [id number] [address] [place] [address], [place] [id number] 05 Aug, 2012 [facility] [address] [id number] [address] [place] [address], [place] [id number] 20 Aug, 2012 [facility] [address] [id number] [address] [place] [address], [place] [id number] 14 Aug, 2012 [facility] [address] [id number] [address] [place] [address], [place] [id number] 12 Aug, 2012 [facility] [address] [id number] [address] [place] [address], [place] [id number] Aug, [facility] [address] [id number] [address] [place] [address], [place] [id number] Jul, [facility] [address] [id number] [address] [place] [address], [place] [id number] 15 Jul, 2012 [facility] [address] [id number] [address] [place] [address], [place] [id number] Jul, [facility] [address] [id number] [address] [place] [address], [place] [id number] Jun, [facility] [address] [id number] [address] [place] [address], [place] [id number] Jun, [facility] [address] [id number] [address] [place] [address], [place] [address] Jun, [facility] [address] [id number] [address] [place] [address], [place] [id number] Jun, [facility] [address] [id number] [address] [place] [address], [place] [id number] 18 Jun, 2012 [facility] [address] [id number] [address] [place] [address], [place] [id number] 14 Jun, 2012 [facility] [address] [id number] [address] [place] [address], [place] [id number] 14 Jun, 2012 [facility] [address] [id number] [address] [place] [address], [place] [id number] 13 Jun, 2012 [facility] [address] [id number] [address] [place] [address], [place] [id number] 13 Jun, 2012 [facility] [address] [id number] [address] [place] [address], [place] [id number] 11 Jun, 2012 [facility] [address] [id number] [address] [place] [address], [place] [id number] 11 Jun, 2012 [facility] [address] [id number] [address] [place] [address], [place] [id number] 11 Jun, 2012 [facility] [address] [id number] [address] [place] [address], [place] [id number] 11 Jun, 2012 [facility] [address] [id number] [address] [place] [address], [place] [id number] 07 Jun, 2012 [facility] [address] [id number] [address] [place] [address], [place] [id number] 07 Jun, 2012 [facility] [address] [id number] [address] [place] [address], [place] [id number] 06 Jun, 2012 [facility] [address] [id number] [address] [place] [address], [place] [id number] Jun, [facility] [address] [id number] [address] [place] [address], [place] [id number] 06 Jun, 2012 [facility] [address] [id number] [address] [place] [address], [place] [id number] 06 Jun, 2012 [facility] [address] [id number] [address] [place] [address], [place] [id number] 05 Jun, 2012 [facility] [address] [id number] [address] [place] [address], [place] [id number] Jun, [facility] [address] [id number] [address] [place] [address], [place] [address] Jun, [facility] [address] [id number] [address] [place] [address], [place] [id number] Jun, [facility] [address] [id number] [address] [place] [address], [place] [address] May, [facility] [address] [id number] [address] [place] [address], [place] [address] May, [facility] [address] [id number] [address] [place] [address], [place] [id number] May, [facility] [address] [id number] [address] [place] [address], [place] [id number] May, [facility] [address] [id number] [address] [place] [address], [place] [id number] May, [facility] [address] [id number] [address] [place] [address], [place] [address] May, [facility] [address] [id number] [address] [place] [address], [place] [address] May, [facility] [address] [id number] [address] [place] [address], [place] [address] May, [facility] [address] [id number] [address] [place] [id number] Apr, [facility] [address] [id number] [address] [place] [address], [place] [id number] Apr, [facility] [address] [id number] [address] [place] [address], [place] [address] Apr, [facility] [address] [id number] [address] [place] [id number] 16 Apr, 2012 [facility] [address] [id number] [address] [place] [address], [place] [id number] 16 Apr, 2012 [facility] [address] [id number] [address] [place] [address], [place] [address] Apr, [facility] [address] [id number] [address] [place] [address], [place] [address] Apr, [facility] [address] [id number] [address] [place] [address], [place] [id number] Apr, [facility] [address] [id number] [address] [place] [address], [place] [address] Apr, [facility] [address] [id number] [address] [place] [address], [place] [address] Apr, [facility] [address] [id number] [address] [place] [address], [place] [address] Apr, [facility] [address] [id number] [address] [place] [address], [place] [address] Apr, [facility] [address] [id number] [address] [place] [address], [place] [address] 19 Mar, 2012 [facility] [address] [id number] [address] [place] [id number] 18 Mar, 2012 [facility] [address] [id number] [address] [place] [address], [place] [address] 12 Mar, 2012 [facility] [address] [id number] [address] [place] [address], [place] [address] 12 Mar, 2012 [facility] [address] [id number] [address] [place] [id number] Mar, [facility] [address] [id number] [address] [place] [id number] Mar, [facility] [address] [id number] [address] [place] [address], [place] [address] 04 Mar, 2012 [facility] [address] [id number] [address] [place] [id number] Jan, [facility] [address] [id number] [address] [place] [address], [place] [address] Jan, [facility] [address] [id number] [address] [place] [address], [place] [id number] Jan, [facility] [address] [id number] [facility] [place] [id number] Jan, [facility] [address] [id number] [address] [place] [address], [place] [address] Jan, [facility] [address] [id number] [address] [place] [address], [place] [address] Jan, [facility] [address] [id number] [address] [place] [address], [place] [address] Jan, [facility] [address] [id number] [address] [place] [address], [place] [address] Jan, [facility] [address] [id number] [address] [place] [address], [place] [address] Jan, [facility] [address] [id number] [address] [place] [address], [place] [address] Jan, [facility] [address] [id number] [address] [place] [address], [place] [address] Jan, [facility] [address] [id number] [address] [place] [address], [place] [address] Dec, [facility] [address] [id number] [address] [place] [address], [place] [id number] Dec, [facility] [address] [id number] [address] [place] [address], [place] [address] Dec, [facility] [address] [id number] [address] [place] [address], [place] [address] Dec, [facility] [address] [id number] [address] [place] [address], [place] [address] Dec, [facility] [address] [id number] [address] [place] [address] [place] [id number] 19 Jan, 2012 [facility] [address] [id number] [address] [place] [address], [place] [address] 18 Jan, 2012 [facility] [address] [id number] [address] [place] [address], [place] [id number] 17 Jan, 2012 [facility] [address] [id number] [address] [place] [address], [place] [id number] 16 Jan, 2012 [facility] [address] [id number] [address] [place] [address], [place] [id number] 13 Jan, 2012 [facility] [address] [id number] [address] [place] [address], [place] [id number] 13 Jan, 2012 [facility] [address] [id number] [address] [place] [address], [place] [address] 02 Jan, 2012 [facility] [address] [id number] [address] [place] [address], [place] [address] Dec, [facility] [address] [id number] [address] [place] [address], [place] [address] Dec, [facility] [address] [id number] [address] [place] [address], [place] [address] Dec, [facility] [address] [id number] [address] [place] [address], [place] [address] Dec, [facility] [address] [id number] [address] [place] [address], [place] [id number] 15 Dec, 2011 [facility] [address] [id number] [address] [place] [address], [place] [address] Dec, [facility] [address] [id number] [address] [place] [address], [place] [id number] 05 Dec, 2011 [facility] [address] [id number] [address] [place] [address], [place] [address] October, [facility] [address] [id number] [address] [place] [address], [place] [address] October, [facility] [address] [id number] [address] [place] [address], [place] [address] October, [facility] [address] [id number] [address] [place] [address], [place] [address] October, [facility] [address] [id number] [address] [place] [address], [place] [address] October, [facility] [address] [id number] [address] [place] [address], [place] [address] October, [facility] [address] [id number] [address] [place] [address], [place] [address] Oct, [facility] [address] [id number] [address] [place] [address], [place] [id number] 24 Oct, 2011 [facility] [address] [id number] [address] [place] [address], [place] [address] Oct, [facility] [address] [id number] [address] [place] [address], [place] [address] Oct, [facility] [address] [id number] [address] [place] [address], [place] [address] Oct, [facility] [address] [id number] [address] [place] [address], [place] [address] Oct, [facility] [address] [id number] [address] [place] [address], [place] [address] Oct, [facility] [address] [id number] [address] [place] [address], [place] [address] 29 Sep, 2011 [facility] [address] [id number] [address] [place] [address], [place] [address] 29 Sep, 2011 [facility] [address] [id number] [address] [place] [address], [place] [address] 19 Sep, 2011 [facility] [address] [id number] [address] [place] [address], [place] [address] 13 Sep, 2011 [facility] [address] [id number] [address] [place] [address], [place] [address] Aug, [facility] [address] [id number] [address] [place] [address], [place] [address] Aug, [facility] [address] [id number] [address] [place] [address], [place] [address] 27 Aug, 2011 [facility] [address] [id number] [address] [place] [address], [place] [address] Aug, [facility] [address] [id number] [address] [place] [address], [place] [id number] 08 Aug, 2011 [facility] [address] [id number] [address] [place] [address], [place] [address] Jul, [facility] [address] [id number] [address] [place] [address], [place] [address] Jul, [facility] [address] [id number] [address] [place] [address], [place] [address] Jul, [facility] [address] [id number] [address] [place] [address], [place] [address] Jul, [facility] [address] [id number] [address] [place] [address], [place] [address] Jun, [facility] [address] [id number] [address] [place] [address], [place] [address] Jun, [facility] [address] [id number] [address] [place] [address], [place] [address] May, [facility] [address] [id number] [address] [place] [address], [place] [address] May, [facility] [address] [id number] [address] [place] [address], [place] [address] May, [facility] [address] [id number] [address] [place] [address], [place] [address] May, [facility] [address] [id number] [address] [place] [address], [place] [address] May, [facility] [address] [id number] [address] [place] [id number] Apr, [facility] [address] [id number] [address] [place] [id number] Apr, [facility] [address] [id number] [address] [place] [id number] Apr, [facility] [address] [id number] [address] [place] [id number] Jan, [facility] [address] [id number] [address] [place] [id number] Dec, [facility] [address] [id number] [address] [place] [id number] October, [facility] [address] [id number] [address] [place] [id number] Jun, [facility] [address] [id number] [address] [place] [id number] Apr, [facility] [address] [id number] [address] [place] [id number] Apr, [facility] [address] [id number] [address] [place] [id number] Apr, [facility] [address] [id number] [address] [place] [id number] Jun, IMMUNIZATIONS No Known Immunizations SOCIAL HISTORY Never Assessed REASON FOR VISIT [facility] PLAN OF CARE VITAL SIGNS MEDICATIONS Unknown Medications RESULTS No Results PROCEDURES No Known procedures INSTRUCTIONS MEDICATIONS ADMINISTERED No Known Medications MEDICAL (GENERAL) HISTORY Type Description Date Medical History Psychiatric disorder Medical History Hard of hearing Surgical History Neofibrous tumor Surgical History back injection Hospitalization History Intestinal blockage Hospitalization History past psychiatric hospitalizations x2
--- OUTSIDE RECORDS SUMMARY | 2020-01-25 12:51 | XMS REPORT ---
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 Name Role Phone Migration, Doctor Unavailable Unavailable PROBLEMS Type Condition ICD9-CM Code [id number] Code Onset Dates Condition S tatus SNOMED Code Problem Attention deficit R41.840 Active 76 731296 Problem Chronic hepatitis C without hepatic coma B18.2 Active 051005952 Problem Cannabis abuse F12.10 Active 23474 009 Problem Bipolar disorder, in partial remission, most rec ent episode hypomanic F31.71 Active 589105553 Problem Attention deficit hyperactivity disorder (ADHD), combi luciano type F90.2 Active 79515795 Problem Bipolar 1 disorder F31.9 Active 3 77367259 Problem H/O laminectomy Z98.89 Active 1616 96637 Problem Other chronic pain G89.29 Active 8 1217414 Problem Anxiety disorder, unspecified type F41.9 Active [id number] ALLERGIES No Information ENCOUNTERS Encounter Location Date Diagnosis [facility] [address] [facility] [id number] [address] [place] [address] October, [facility] [address] [facility] [id number] [address] [place] [address] October, [facility] [address] [facility] [id number] [address] [place] [address] Aug, Bipolar disorder, in partial remission, most recent episode hypomanic F31.71 ; Attention deficit hyperactivity disorder (ADHD), combined type F90.2 and Anxiety disorder, unspecified type F41.9 [facility] [address] [facility] [id number] [address] [place] [address] Aug, [facility] [address] [facility] [id number] [address] [place] [address] Aug, Bipolar disorder, in partial remission, most recent episode hypomanic F31.71 [facility] [address] [id number] [address] [place] [address] Aug, [facility] [address] [id number] [address] [place] [address] Aug, Bipolar disorder, in partial remission, most recent episode hypomanic F31.71 [facility] [address] [id number] [address] [place] [address] Aug, Bipolar disorder, in partial remission, most recent episode hypomanic F31.71 ; Attention deficit hyperactivity disorder (ADHD), combined type F90.2 and Anxiety disorder, unspecified type F41.9 [facility] [address] [id number] [address] [place] [address] Aug, Low back pain M54.5 and Pain in left wrist M25.532 [facility] [address] [id number] [address] [place] [address] Aug, [facility] [address] [id number] [address] [place] [address] Jun, [facility] [address] [id number] [address] [place] [address] Apr, Bipolar disorder, in partial remission, most recent episode hypomanic F31.71 [facility] [address] [id number] [address] [place] [address] Apr, [facility] [address] [id number] [address] [place] [address] Apr, Bipolar disorder, in partial remission, most recent episode hypomanic F31.71 ; Attention deficit hyperactivity disorder (ADHD), combined type F90.2 ; Anxiety disorder, unspecified type F41.9 and 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 [facility] [address] [id number] [address] [place] [address] Apr, Bipolar disorder, in partial remission, most recent episode hypomanic F31.71 [facility] [address] [id number] [address] [place] [address] Apr, Bipolar disorder, in partial remission, most recent episode hypomanic F31.71 [facility] [address] [id number] [address] [place] [address] Mar, [facility] [address] [id number] [address] [place] [address] Mar, Bipolar disorder, in partial remission, most recent episode hypomanic F31.71 ; Encounter for immunization Z23 and Low back pain M54.5 [facility] [address] [id number] [address] [place] [address] Mar, Bipolar disorder, in partial remission, most recent episode hypomanic F31.71 [facility] [address] [id number] [address] [place] [address] Mar, Bipolar disorder, in partial remission, most recent episode hypomanic F31.71 [facility] [address] [id number] [address] [place] [address] Jan, Bipolar disorder, in partial remission, most recent episode hypomanic F31.71 [facility] [address] [id number] [address] [place] [address] Jan, Bipolar disorder, in partial remission, most recent episode hypomanic F31.71 [facility] [address] [id number] [address] [place] [address] Dec, Bipolar disorder, in partial remission, most recent episode hypomanic F31.71 [facility] [address] [id number] [address] [place] [address] Dec, Bipolar disorder, in partial remission, most recent episode hypomanic F31.71 ; Attention deficit hyperactivity disorder (ADHD), combined type F90.2 ; Anxiety disorder, unspecified type F41.9 and 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 [facility] [address] [id number] [address] [place] [address] Dec, Bipolar disorder, in partial remission, most recent episode hypomanic F31.71 [facility] [address] [facility] [id number] [address] [place] [address] Dec, Bipolar disorder, in partial remission, most recent episode hypomanic F31.71 [facility] [address] [facility] [id number] [address] [place] [address] October, Bipolar disorder, in partial remission, most recent episode hypomanic F31.71 [facility] [address] [facility] [id number] [address] [place] [address] October, [facility] [address] [facility] [id number] [address] [place] [address] October, [facility] [address] [facility] [id number] [address] [place] [address] Oct, Bipolar disorder, in partial remission, most recent episode hypomanic F31.71 ; Attention deficit hyperactivity disorder (ADHD), combined type F90.2 ; Anxiety disorder, unspecified type F41.9 and Encounter for drug screening Z02.83 [facility] [address] [facility] [id number] [address] [place] [address] Oct, Bipolar disorder, in partial remission, most recent episode hypomanic F31.71 [facility] [address] [facility] [id number] [address] [place] [address] Oct, Bipolar disorder, in partial remission, most recent episode hypomanic F31.71 [facility] [address] [facility] [id number] [address] [place] [address] Aug, Bipolar disorder, in partial remission, most recent episode hypomanic F31.71 [facility] [address] [facility] [id number] [address] [place] [address] Aug, Bipolar disorder, in partial remission, most recent episode hypomanic F31.71 [facility] [address] [facility] [id number] [address] [place] [address] Aug, Bipolar disorder, in partial remission, most recent episode hypomanic F31.71 [facility] [address] [facility] [id number] [address] [place] [address] Jul, Bipolar disorder, in partial remission, most recent episode hypomanic F31.71 ; Attention deficit hyperactivity disorder (ADHD), combined type F90.2 and Anxiety disorder, unspecified type F41.9 [facility] [address] [id number] [address] [place] [address] Jul, Bipolar disorder, in partial remission, most recent episode hypomanic F31.71 [facility] [address] [id number] [address] [place] [address] Jun, Bipolar disorder, in partial remission, most recent episode hypomanic F31.71 [facility] [address] [id number] [address] [place] [address] May, Bipolar disorder, in partial remission, most recent episode hypomanic F31.71 [facility] [address] [facility] [id number] [address] [place] [address] May, Bipolar disorder, in partial remission, most recent episode hypomanic F31.71 [facility] [address] [facility] [id number] [address] [place] [address] Apr, [facility] [address] [facility] [id number] [address] [place] [address] Apr, Bipolar disorder, in partial remission, most recent episode hypomanic F31.71 ; Attention deficit hyperactivity disorder (ADHD), combined type F90.2 ; Anxiety disorder, unspecified type F41.9 and Cannabis abuse F12.10 [facility] [address] [id number] [address] [place] [address] Apr, Attention deficit hyperactiv ity disorder (ADHD), combined type F90.2 [facility] [address] [id number] [address] [place] [address] Mar, Attention deficit hyperactiv ity disorder (ADHD), combined type F90.2 [facility] [address] [facility] [id number] [address] [place] [address] 14 Mar, 2017 Anxiety disorder, unspecifie d type F41.9 [facility] [id number] [facility] [id number] [address] [place] [address] Jan, Attention deficit hyperactiv ity disorder (ADHD), combined type F90.2 [facility] [address] [facility] [id number] [address] [place] [address] Jan, Anxiety disorder, unspecifie d type F41.9 [facility] [address] [facility] [id number] [address] [place] [address] Jan, Other chronic pain G89.29 ; Chronic hepatitis C without hepatic coma B18.2 and Bipolar 1 disorder F31.9 [facility] [address] [facility] [id number] [address] [place] [address] Dec, Attention deficit hyperactiv ity disorder (ADHD), combined type F90.2 [facility] [address] [facility] [id number] [address] [place] [address] Dec, Bipolar disorder, in partial remission, most recent episode hypomanic F31.71 ; Attention deficit hyperactivity disorder (ADHD), combined type F90.2 and Anxiety disorder, unspecified type F41.9 [facility] [address] [facility] [id number] [address] [place] [address] Dec, Bipolar disorder, in partial remission, most recent episode hypomanic F31.71 ; Attention deficit hyperactivity disorder (ADHD), combined type F90.2 and Anxiety disorder, unspecified type F41.9 [facility] [address] [facility] [id number] [address] [place] [address] Dec, Bipolar 1 disorder F31.9 and Attention deficit R41.840 [facility] [address] [facility] [id number] [address] [place] [address] Oct, Other chronic pain G89.29 ; Alopecia L65.9 and Screening, lipid Z13.220 [facility] [address] [facility] [id number] [address] [place] [address] Oct, [facility] [address] [place] [id number] [address] [place] [address] Aug, [facility] [address] [id number] [address] [place] [address] Aug, Eustachian tube dysfunction, right H69.81 ; Vertigo R42 and Other chronic pain G89.29 [facility] [address] [id number] [address] [place] [address] Aug, [facility] [address] [id number] [address] [place] [address] Jun, [facility] [address] [id number] [address] [place] [address] Jun, Low back pain M54.5 and Othe r chronic pain G89.29 [facility] [address] [id number] [address] [place] [address] Jun, [facility] [address] [id number] [address] [place] [address] May, [facility] [address] [id number] [address] [place] [address] Jan, [facility] [address] [id number] [address] [place] [address] Dec, [facility] [address] [id number] [address] [place] [address] Dec, [facility] [address] [id number] [address] [place] [address] Jun, [facility] [address] [id number] [address] [place] [address] Apr, Eustachian tube dysfunction, unspecified laterality H69.80 ; Hot flashes N95.1 and Encounter for immunization Z23 [facility] [address] [id number] [address] [place] [address] Jan, [facility] [address] [id number] [address] [place] [address] Jan, [facility] [address] [id number] [address] [place] [address] Jan, [facility] [address] [id number] [address] [place] [address] Jan, [facility] [address] [id number] [address] [place] [address] Jan, Encounter to establish care V65.8 ; Bipolar 1 disorder 296.7 ; Abdominal pain 789.00 ; Constipation 564.00 ; Hard of hearing 389.9 and Drug abuse 305.90 [facility] [address] [id number] [address] [place] [address] Dec, [facility] [address] [id number] [address] [place] [address] October, [facility] [address] [id number] [address] [place] [address] October, [facility] [address] [id number] [address] [place] [address] Oct, [facility] [address] [id number] [address] [place] [address] Oct, [facility] [address] [id number] [address] [place] [address] Oct, [facility] [address] [id number] [address] [place] [address] Aug, [facility] [address] [id number] [address] [place] [address] Aug, [facility] [address] [id number] [address] [place] [address] Aug, [facility] [address] [id number] [address] [place] [address] Aug, [facility] [address] [id number] [address] [place] [address] Aug, [facility] [address] [id number] [address] [place] [address], [place] [address] Aug, 2014 [facility] [address] [id number] [address] [place] [address], [place] [address] Aug, 2014 [facility] [address] [id number] [address] [place] [address], [place] [address] Aug, 2014 [facility] [address] [id number] [address] [place] [address], [place] [address] Aug, 2014 [facility] [address] [id number] [address] [place] [address], [place] [address] Aug, 2014 [facility] [address] [id number] [address] [place] [address], [place] [address] Aug, 2014 [facility] [address] [id number] [address] [place] [address], [place] [address] Aug, 2014 [facility] [address] [id number] [address] [place] [address], [place] [address] Aug, 2014 [facility] [address] [id number] [address] [place] [address], [place] [address] Aug, 2014 [facility] [address] [id number] [address] [place] [address], [place] [address] Aug, [facility] [address] [id number] [address] [place] [address], [place] [address] Jul, [facility] [address] [id number] [address] [place] [address], [place] [address] Jul, [facility] [address] [id number] [address] [place] [address], [place] [address] Jul, [facility] [address] [id number] [address] [place] [address], [place] [address] Jul, [facility] [address] [id number] [address] [place] [address], [place] [address] Jul, [facility] [address] [id number] [address] [place] [address], [place] [address] Jul, [facility] [address] [id number] [address] [place] [address], [place] [address] Jul, [facility] [address] [id number] [address] [place] [address], [place] [address] Jul, [facility] [address] [id number] [address] [place] [address], [place] [address] Jun, [facility] [address] [id number] [address] [place] [address], [place] [address] Jun, [facility] [address] [id number] [address] [place] [address], [place] [address] Jun, [facility] [address] [id number] [address] [place] [address], [place] [address] Jun, [facility] [address] [id number] [address] [place] [address], [place] [address] Jun, [facility] [address] [id number] [address] [place] [address], [place] [address] Jun, [facility] [address] [id number] [address] [place] [address], [place] [address] Jun, [facility] [address] [id number] [address] [place] [address], [place] [address] Jun, [facility] [address] [id number] [address] [place] [address], [place] [address] Jun, [facility] [address] [id number] [address] [place] [address], [place] [address] Jun, [facility] [address] [id number] [address] [place] [address], [place] [address] Jun, [facility] [address] [id number] [address] [place] [address], [place] [address] May, [facility] [address] [id number] [address] [place] [address], [place] [address] May, [facility] [address] [id number] [address] [place] [address], [place] [address] May, [facility] [address] [id number] [address] [place] [address], [place] [address] May, [facility] [address] [id number] [address] [place] [address], [place] [address] May, [facility] [address] [id number] [address] [place] [address], [place] [address] May, [facility] [address] [id number] [address] [place] [address], [place] [address] May, [facility] [address] [id number] [address] [place] [address], [place] [address] Apr, [facility] [address] [id number] [address] [place] [address], [place] [address] Apr, [facility] [address] [id number] [address] [place] [address], [place] [address] Apr, [facility] [address] [id number] [address] [place] [address], [place] [address] Apr, [facility] [address] [id number] [address] [place] [address], [place] [address] Apr, [facility] [address] [id number] [address] [place] [address], [place] [address] Apr, [facility] [address] [id number] [address] [place] [address], [place] [address] 29 Mar, 2014 [facility] [address] [id number] [address] [place] [address], [place] [address] 29 Mar, 2013 [facility] [address] [id number] [address] [place] [address], [place] [address] 10 Mar, 2014 [facility] [address] [id number] [address] [place] [address], [place] [address] Mar, 2013 [facility] [address] [id number] [address] [place] [address], [place] [address] Mar, [facility] [address] [id number] [address] [place] [address], [place] [address] Mar, [facility] [address] [id number] [address] [place] [address], [place] [address] Jan, [facility] [address] [id number] [address] [place] [address], [place] [address] Jan, [facility] [address] [id number] [address] [place] [address], [place] [address] Jan, [facility] [address] [id number] [address] [place] [address], [place] [address] Jan, [facility] [address] [id number] [address] [place] [address], [place] [address] Dec, [facility] [address] [id number] [address] [place] [address], [place] [address] Dec, [facility] [address] [id number] [address] [place] [address], [place] [address] Dec, [facility] [address] [id number] [address] [place] [address], [place] [address] Dec, [facility] [address] [id number] [address] [place] [address], [place] [address] Dec, [facility] [address] [id number] [address] [place] [address], [place] [address] Dec, [facility] [address] [id number] [address] [place] [address], [place] [address] Dec, [facility] [address] [id number] [address] [place] [address], [place] [address] Dec, [facility] [address] [id number] [address] [place] [address], [place] [address] Dec, [facility] [address] [id number] [address] [place] [address], [place] [address] Dec, [facility] [address] [id number] [address] [place] [address], [place] [address] Dec, [facility] [address] [id number] [address] [place] [address], [place] [address] Dec, [facility] [address] [id number] [address] [place] [address], [place] [address] October, [facility] [address] [id number] [address] [place] [address], [place] [address] October, [facility] [address] [id number] [address] [place] [address], [place] [address] October, [facility] [address] [id number] [address] [place] [address], [place] [address] October, [facility] [address] [id number] [address] [place] [address], [place] [address] October, [facility] [address] [id number] [address] [place] [address], [place] [address] October, [facility] [address] [id number] [address] [place] [address], [place] [address] Oct, [facility] [address] [id number] [address] [place] [address], [place] [address] Oct, [facility] [address] [id number] [address] [place] [address], [place] [address] Oct, [facility] [address] [id number] [address] [place] [address], [place] [address] Oct, [facility] [address] [id number] [address] [place] [address], [place] [address] Oct, [facility] [address] [id number] [address] [place] [address], [place] [address] Oct, [facility] [address] [id number] [address] [place] [address], [place] [address] Oct, [facility] [address] [id number] [address] [place] [address], [place] [address] Oct, [facility] [address] [id number] [facility] [place] [address] Oct, [facility] [address] [id number] [facility] [place] [address] Oct, [facility] [address] [id number] [address] [place] [address], [place] [address] Oct, [facility] [address] [id number] [address] [place] [address], [place] [address] Oct, [facility] [address] [id number] [address] [place] [address], [place] [address] Aug, [facility] [address] [id number] [address] [place] [address], [place] [address] Aug, [facility] [address] [id number] [address] [place] [address], [place] [address] Aug, [facility] [address] [id number] [address] [place] [address], [place] [address] Aug, [facility] [address] [id number] [address] [place] [address], [place] [address] Aug, [facility] [address] [id number] [address] [place] [address], [place] [address] Aug, [facility] [address] [id number] [address] [place] [address], [place] [address] Aug, [facility] [address] [id number] [address] [place] [address], [place] [address] Aug, [facility] [address] [id number] [address] [place] [address], [place] [address] Aug, [facility] [address] [id number] [address] [place] [address], [place] [address] Aug, [facility] [address] [id number] [address] [place] [address], [place] [address] Aug, [facility] [address] [id number] [address] [place] [address], [place] [address] Aug, [facility] [address] [id number] [address] [place] [address], [place] [address] Aug, [facility] [address] [id number] [address] [place] [address], [place] [address] 20 Aug, 2013 [facility] [address] [id number] [address] [place] [address], [place] [address] 14 Aug, 2013 [facility] [address] [id number] [address] [place] [address], [place] [address] 14 Aug, 2013 [facility] [address] [id number] [address] [place] [address], [place] [address] 14 Aug, 2013 [facility] [address] [id number] [address] [place] [address], [place] [address] 14 Aug, 2013 [facility] [address] [id number] [address] [place] [address], [place] [address] 07 Aug, 2013 [facility] [address] [id number] [address] [place] [address], [place] [address] 07 Aug, 2013 [facility] [address] [id number] [address] [place] [address], [place] [address] 06 Aug, 2013 [facility] [address] [id number] [address] [place] [address], [place] [address] 06 Aug, 2013 [facility] [address] [id number] [address] [place] [address], [place] [address] 04 Aug, 2013 [facility] [address] [id number] [address] [place] [address], [place] [address] 04 Aug, 2013 [facility] [address] [id number] [address] [place] [address], [place] [address] Aug, [facility] [address] [id number] [address] [place] [address], [place] [address] Jul, [facility] [address] [id number] [address] [place] [address], [place] [address] Jul, [facility] [address] [id number] [address] [place] [address], [place] [address] Jul, [facility] [address] [id number] [address] [place] [address], [place] [address] Jul, [facility] [address] [id number] [address] [place] [address], [place] [address] Jul, [facility] [address] [id number] [address] [place] [address], [place] [address] Jul, [facility] [address] [id number] [address] [place] [address], [place] [address] Jul, [facility] [address] [id number] [address] [place] [address], [place] [address] Jul, [facility] [address] [id number] [address] [place] [address], [place] [address] Jul, [facility] [address] [id number] [address] [place] [address], [place] [address] Jul, [facility] [address] [id number] [address] [place] [address], [place] [address] Jul, [facility] [address] [id number] [address] [place] [address], [place] [address] Jul, [facility] [address] [id number] [address] [place] [address], [place] [address] Jul, [facility] [address] [id number] [address] [place] [address], [place] [address] Jul, [facility] [address] [id number] [address] [place] [address], [place] [address] Jul, [facility] [address] [id number] [address] [place] [address], [place] [address] Jul, [facility] [address] [id number] [address] [place] [address], [place] [address] Jul, [facility] [address] [id number] [address] [place] [address], [place] [address] Jul, [facility] [address] [id number] [address] [place] [address], [place] [address] Jul, [facility] [address] [id number] [address] [place] [address], [place] [address] Jul, [facility] [address] [id number] [address] [place] [address], [place] [address] Jun, [facility] [address] [id number] [address] [place] [address], [place] [address] Jun, [facility] [address] [id number] [address] [place] [address], [place] [address] Jun, [facility] [address] [id number] [address] [place] [address], [place] [address] Jun, [facility] [address] [id number] [address] [place] [address], [place] [address] Jun, [facility] [address] [id number] [address] [place] [address], [place] [address] Jun, [facility] [address] [id number] [address] [place] [address], [place] [address] Jun, [facility] [address] [id number] [address] [place] [address], [place] [address] Jun, [facility] [address] [id number] [address] [place] [address], [place] [address] Jun, [facility] [address] [id number] [address] [place] [address], [place] [address] Jun, [facility] [address] [id number] [address] [place] [address], [place] [address] Jun, [facility] [address] [id number] [address] [place] [address], [place] [address] Jun, [facility] [address] [id number] [address] [place] [address], [place] [address] Jun, [facility] [address] [id number] [address] [place] [address], [place] [address] 20 Jun, 2013 [facility] [address] [id number] [address] [place] [address], [place] [address] 20 Jun, 2013 [facility] [address] [id number] [address] [place] [address], [place] [address] 18 Jun, 2013 [facility] [address] [id number] [address] [place] [address], [place] [address] 18 Jun, 2013 [facility] [address] [id number] [address] [place] [address], [place] [address] 17 Jun, 2013 [facility] [address] [id number] [address] [place] [address], [place] [address] 17 Jun, 2013 [facility] [address] [id number] [address] [place] [address], [place] [address] 13 Jun, 2013 [facility] [address] [id number] [address] [place] [address], [place] [address] 12 Jun, 2013 [facility] [address] [id number] [address] [place] [address], [place] [address] 12 Jun, 2013 [facility] [address] [id number] [address] [place] [address], [place] [address] 09 Jun, 2013 [facility] [address] [id number] [address] [place] [address], [place] [address] 05 Jun, 2013 [facility] [address] [id number] [address] [place] [address], [place] [address] 05 Jun, 2013 [facility] [address] [id number] [address] [place] [address], [place] [address] 04 Jun, 2013 [facility] [address] [id number] [address] [place] [address], [place] [address] 04 Jun, 2013 [facility] [address] [id number] [address] [place] [address], [place] [address] 17 May, 2013 [facility] [address] [id number] [address] [place] [address], [place] [address] May, [facility] [address] [id number] [address] [place] [address], [place] [address] May, [facility] [address] [id number] [address] [place] [address], [place] [address] May, [facility] [address] [id number] [address] [place] [address], [place] [address] May, [facility] [address] [id number] [address] [place] [address], [place] [address] May, [facility] [address] [id number] [address] [place] [address], [place] [address] Apr, [facility] [address] [id number] [address] [place] [address], [place] [address] Apr, [facility] [address] [id number] [address] [place] [address], [place] [address] Apr, [facility] [address] [id number] [address] [place] [address], [place] [address] Apr, [facility] [address] [id number] [address] [place] [address], [place] [address] Apr, [facility] [address] [id number] [address] [place] [address], [place] [address] Apr, [facility] [address] [id number] [address] [place] [address], [place] [address] Apr, [facility] [address] [id number] [address] [place] [address], [place] [address] Apr, [facility] [address] [id number] [address] [place] [address], [place] [address] Mar, [facility] [address] [id number] [address] [place] [address], [place] [address] 24 Mar, 2013 [facility] [address] [id number] [address] [place] [address], [place] [address] 17 Mar, 2013 [facility] [address] [id number] [address] [place] [address] [place] [address] 17 Mar, 2012 [facility] [address] [id number] [address] [place] [address], [place] [address] 11 Mar, 2012 [facility] [address] [id number] [address] [place] [address], [place] [address] 10 Mar, 2012 [facility] [address] [id number] [address] [place] [address], [place] [address] 05 Mar, 2012 [facility] [address] [id number] [address] [place] [address], [place] [address] 04 Mar, 2013 [facility] [address] [id number] [address] [place] [address], [place] [address] 20 Jan, 2013 [facility] [address] [id number] [address] [place] [address], [place] [address] Jan, [facility] [address] [id number] [address] [place] [address], [place] [address] 14 Jan, 2013 [facility] [address] [id number] [address] [place] [address], [place] [address] Jan, [facility] [address] [id number] [address] [place] [address], [place] [address] Jan, [facility] [address] [id number] [address] [place] [address], [place] [address] Jan, [facility] [address] [id number] [address] [place] [address], [place] [address] Dec, [facility] [address] [id number] [address] [place] [address], [place] [address] Dec, [facility] [address] [id number] [address] [place] [address], [place] [address] Dec, [facility] [address] [id number] [address] [place] [address], [place] [address] Dec, [facility] [address] [id number] [address] [place] [address], [place] [address] Dec, [facility] [address] [id number] [address] [place] [address], [place] [address] 17 Dec, 2012 [facility] [address] [id number] [address] [place] [address], [place] [address] 16 Dec, 2012 [facility] [address] [id number] [address] [place] [address], [place] [address] 16 Dec, 2012 [facility] [address] [id number] [address] [place] [address], [place] [address] 15 Dec, 2012 [facility] [address] [id number] [address] [place] [address], [place] [address] 10 Dec, 2012 [facility] [address] [id number] [address] [place] [address], [place] [address] 28 Dec, 2012 [facility] [address] [id number] [address] [place] [address], [place] [address] Dec, [facility] [address] [id number] [address] [place] [address], [place] [address] Dec, [facility] [address] [id number] [address] [place] [address], [place] [address] Dec, [facility] [address] [id number] [address] [place] [address], [place] [address] Dec, [facility] [address] [id number] [address] [place] [address], [place] [address] Dec, [facility] [address] [id number] [address] [place] [address], [place] [address] October, [facility] [address] [id number] [address] [place] [address], [place] [address] October, [facility] [address] [id number] [address] [place] [address], [place] [address] October, [facility] [address] [id number] [address] [place] [address], [place] [address] October, [facility] [address] [id number] [address] [place] [address], [place] [address] October, [facility] [address] [id number] [address] [place] [address], [place] [address] October, [facility] [address] [id number] [address] [place] [address], [place] [address] October, [facility] [address] [id number] [address] [place] [address], [place] [address] Oct, [facility] [address] [id number] [address] [place] [address], [place] [address] Oct, [facility] [address] [id number] [address] [place] [address], [place] [address] Oct, [facility] [address] [id number] [address] [place] [address], [place] [address] Oct, [facility] [address] [id number] [address] [place] [address], [place] [address] Oct, [facility] [address] [id number] [address] [place] [address], [place] [address] Oct, [facility] [address] [id number] [address] [place] [address], [place] [address] Oct, [facility] [address] [id number] [address] [place] [address], [place] [address] Oct, [facility] [address] [id number] [address] [place] [address], [place] [address] Oct, [facility] [address] [id number] [address] [place] [address], [place] [address] Oct, [facility] [address] [id number] [address] [place] [address], [place] [address] Oct, [facility] [address] [id number] [address] [place] [address], [place] [address] Oct, [facility] [address] [id number] [address] [place] [address], [place] [address] Aug, [facility] [address] [id number] [address] [place] [address], [place] [address] 20 Aug, 2012 [facility] [address] [id number] [address] [place] [address], [place] [address] 12 Aug, 2012 [facility] [address] [id number] [address] [place] [address], [place] [address] 06 Aug, 2012 [facility] [address] [id number] [address] [place] [address], [place] [address] 05 Aug, 2012 [facility] [address] [id number] [address] [place] [address], [place] [address] 05 Aug, 2012 [facility] [address] [id number] [address] [place] [address], [place] [address] 20 Aug, 2012 [facility] [address] [id number] [address] [place] [address], [place] [address] 14 Aug, 2012 [facility] [address] [id number] [address] [place] [address], [place] [address] 12 Aug, 2012 [facility] [address] [id number] [address] [place] [address], [place] [address] Aug, [facility] [address] [id number] [address] [place] [address], [place] [address] Jul, [facility] [address] [id number] [address] [place] [address], [place] [address] 15 Jul, 2012 [facility] [address] [id number] [address] [place] [address], [place] [address] Jul, [facility] [address] [id number] [address] [place] [address], [place] [address] Jun, [facility] [address] [id number] [address] [place] [address], [place] [address] Jun, [facility] [address] [id number] [address] [place] [address], [place] [address] Jun, [facility] [address] [id number] [address] [place] [address], [place] [address] Jun, [facility] [address] [id number] [address] [place] [address], [place] [address] 18 Jun, 2012 [facility] [address] [id number] [address] [place] [address], [place] [address] 14 Jun, 2012 [facility] [address] [id number] [address] [place] [address], [place] [address] 14 Jun, 2012 [facility] [address] [id number] [address] [place] [address], [place] [address] 13 Jun, 2012 [facility] [address] [id number] [address] [place] [address], [place] [address] 13 Jun, 2012 [facility] [address] [id number] [address] [place] [address], [place] [address] 11 Jun, 2012 [facility] [address] [id number] [address] [place] [address], [place] [address] 11 Jun, 2012 [facility] [address] [id number] [address] [place] [address], [place] [address] 11 Jun, 2012 [facility] [address] [id number] [address] [place] [address], [place] [address] 11 Jun, 2012 [facility] [address] [id number] [address] [place] [address], [place] [address] 07 Jun, 2012 [facility] [address] [id number] [address] [place] [address], [place] [address] 07 Jun, 2012 [facility] [address] [id number] [address] [place] [address], [place] [address] 06 Jun, 2012 [facility] [address] [id number] [address] [place] [address], [place] [address] Jun, [facility] [address] [id number] [address] [place] [address], [place] [address] 06 Jun, 2012 [facility] [address] [id number] [address] [place] [address], [place] [address] 06 Jun, 2012 [facility] [address] [id number] [address] [place] [address], [place] [address] 05 Jun, 2012 [facility] [address] [id number] [address] [place] [address], [place] [address] Jun, [facility] [address] [id number] [address] [place] [address], [place] [address] Jun, [facility] [address] [id number] [address] [place] [address], [place] [address] Jun, [facility] [address] [id number] [address] [place] [address], [place] [address] May, [facility] [address] [id number] [address] [place] [address], [place] [address] May, [facility] [address] [id number] [address] [place] [address], [place] [address] May, [facility] [address] [id number] [address] [place] [address], [place] [address] May, [facility] [address] [id number] [address] [place] [address], [place] [address] May, [facility] [address] [id number] [address] [place] [address], [place] [address] May, [facility] [address] [id number] [address] [place] [address], [place] [address] May, [facility] [address] [id number] [address] [place] [address], [place] [address] May, [facility] [address] [id number] [address] [place] [id number] Apr, [facility] [address] [id number] [address] [place] [address], [place] [address] Apr, [facility] [address] [id number] [address] [place] [address], [place] [address] Apr, [facility] [address] [id number] [address] [place] [id number] 16 Apr, 2012 [facility] [address] [id number] [address] [place] [address], [place] [address] 16 Apr, 2012 [facility] [address] [id number] [address] [place] [address], [place] [address] Apr, [facility] [address] [id number] [address] [place] [address], [place] [address] Apr, [facility] [address] [id number] [address] [place] [address], [place] [address] Apr, [facility] [address] [id number] [address] [place] [address], [place] [address] Apr, [facility] [address] [id number] [address] [place] [address], [place] [address] Apr, [facility] [address] [id number] [address] [place] [address], [place] [address] Apr, [facility] [address] [id number] [address] [place] [address], [place] [address] Apr, [facility] [address] [id number] [address] [place] [address], [place] [address] 19 Mar, 2012 [facility] [address] [id number] [address] [place] [id number] 18 Mar, 2012 [facility] [address] [id number] [address] [place] [address], [place] [address] 12 Mar, 2012 [facility] [address] [id number] [address] [place] [address], [place] [address] 12 Mar, 2012 [facility] [address] [id number] [address] [place] [id number] Mar, [facility] [address] [id number] [address] [place] [id number] Mar, [facility] [address] [id number] [address] [place] [address], [place] [address] 04 Mar, 2012 [facility] [address] [id number] [address] [place] [id number] Jan, [facility] [address] [id number] [address] [place] [address], [place] [address] Jan, [facility] [address] [id number] [address] [place] [address], [place] [id number] Jan, [facility] [address] [id number] [facility] [id number] Jan, [facility] [address] [id number] [address] [place] [address], [place] [address] Jan, [facility] [address] [id number] [address] [place] [address], [place] [address] Jan, [facility] [address] [id number] [address] [place] [address], [place] [address] Jan, [facility] [address] [id number] [address] [place] [address], [place] [address] Jan, [facility] [address] [id number] [address] [place] [address], [place] [address] Jan, [facility] [address] [id number] [address] [place] [address], [place] [address] Jan, [facility] [address] [id number] [address] [place] [address], [place] [address] Jan, [facility] [address] [id number] [address] [place] [address], [place] [address] Dec, [facility] [address] [id number] [address] [place] [address], [place] [address] Dec, [facility] [address] [id number] [address] [place] [address], [place] [address] Dec, [facility] [address] [id number] [address] [place] [address], [place] [address] Dec, [facility] [address] [id number] [address] [place] [address], [place] [address] Dec, [facility] [address] [id number] [address] [place] [address] [place] [address] 19 Jan, 2012 [facility] [address] [id number] [address] [place] [address], [place] [address] 18 Jan, 2012 [facility] [address] [id number] [address] [place] [address], [place] [address] 17 Jan, 2012 [facility] [address] [id number] [address] [place] [address], [place] [address] 16 Jan, 2012 [facility] [address] [id number] [address] [place] [address], [place] [address] 13 Jan, 2012 [facility] [address] [id number] [address] [place] [address], [place] [address] 13 Jan, 2012 [facility] [address] [id number] [address] [place] [address], [place] [address] 02 Jan, 2012 [facility] [address] [id number] [address] [place] [address], [place] [address] Dec, [facility] [address] [id number] [address] [place] [address], [place] [address] Dec, [facility] [address] [id number] [address] [place] [address], [place] [address] Dec, [facility] [address] [id number] [address] [place] [address], [place] [address] Dec, [facility] [address] [id number] [address] [place] [address], [place] [address] 15 Dec, 2011 [facility] [address] [id number] [address] [place] [address], [place] [address] Dec, [facility] [address] [id number] [address] [place] [address], [place] [address] 05 Dec, 2011 [facility] [address] [id number] [address] [place] [address], [place] [address] October, [facility] [address] [id number] [address] [place] [address], [place] [address] October, [facility] [address] [id number] [address] [place] [address], [place] [address] October, [facility] [address] [id number] [address] [place] [address], [place] [address] October, [facility] [address] [id number] [address] [place] [address], [place] [address] October, [facility] [address] [id number] [address] [place] [address], [place] [address] October, [facility] [address] [id number] [address] [place] [address], [place] [address] Oct, [facility] [address] [id number] [address] [place] [address], [place] [address] 24 Oct, 2011 [facility] [address] [id number] [address] [place] [address], [place] [address] Oct, [facility] [address] [id number] [address] [place] [address], [place] [address] Oct, [facility] [address] [id number] [address] [place] [address], [place] [address] Oct, [facility] [address] [id number] [address] [place] [address], [place] [address] Oct, [facility] [address] [id number] [address] [place] [address], [place] [address] Oct, [facility] [address] [id number] [address] [place] [address], [place] [address] 29 Sep, 2011 [facility] [address] [id number] [address] [place] [address], [place] [address] 29 Sep, 2011 [facility] [address] [id number] [address] [place] [address], [place] [address] 19 Sep, 2011 [facility] [address] [id number] [address] [place] [address], [place] [address] 13 Sep, 2011 [facility] [address] [id number] [address] [place] [address], [place] [address] Aug, [facility] [address] [id number] [address] [place] [address], [place] [address] Aug, [facility] [address] [id number] [address] [place] [address], [place] [address] 27 Aug, 2011 [facility] [address] [id number] [address] [place] [address], [place] [address] Aug, [facility] [address] [id number] [address] [place] [address], [place] [address] 08 Aug, 2011 [facility] [address] [id number] [address] [place] [address], [place] [address] Jul, [facility] [address] [id number] [address] [place] [address], [place] [address] Jul, [facility] [address] [id number] [address] [place] [address], [place] [address] Jul, [facility] [address] [id number] [address] [place] [address], [place] [address] Jul, [facility] [address] [id number] [address] [place] [address], [place] [address] Jun, [facility] [address] [id number] [address] [place] [address], [place] [address] Jun, [facility] [address] [id number] [address] [place] [address], [place] [address] May, [facility] [address] [id number] [address] [place] [address], [place] [address] May, [facility] [address] [id number] [address] [place] [address], [place] [address] May, [facility] [address] [id number] [address] [place] [address], [place] [address] May, [facility] [address] [id number] [address] [place] [address], [place] [address] May, [facility] [address] [id number] [address] [place] [address] Apr, [facility] [address] [id number] [address] [place] [address] Apr, [facility] [address] [id number] [address] [place] [address] Apr, [facility] [address] [id number] [address] [place] [address] Jan, [facility] [address] [id number] [address] [place] [address] Dec, [facility] [address] [id number] [address] [place] [id number] October, [facility] [address] [id number] [address] [place] [address] Jun, [facility] [address] [id number] [address] [place] [address] Apr, [facility] [address] [id number] [address] [place] [address] Apr, [facility] [address] [id number] [address] [place] [address] Apr, [facility] [address] [id number] [address] [place] [address] Jun, IMMUNIZATIONS No Known Immunizations SOCIAL HISTORY Never Assessed REASON FOR VISIT [facility] [place] OF CARE VITAL SIGNS MEDICATIONS Unknown Medications RESULTS No Results PROCEDURES No Known procedures INSTRUCTIONS MEDICATIONS ADMINISTERED No Known Medications MEDICAL (GENERAL) HISTORY Type Description Date Medical History Psychiatric disorder Medical History Hard of hearing Surgical History Neofibrous tumor Surgical History back injection Hospitalization History Intestinal blockage Hospitalization History past psychiatric hospitalizations x2
--- OUTSIDE RECORDS SUMMARY | 2020-01-25 12:52 | XMS REPORT ---
Author Author Ana Mayer Doctor Organization [facility] Address Unknown Phone Unavailable Care Team Providers Care Engraver Lettering Name Role Phone Migration, Doctor Unavailable Unavailable PROBLEMS Type Condition ICD9-CM Code RON94-DN Code Onset Dates Condition S tatus SNOMED Code Problem Attention deficit R41.840 Active 76 440715 Problem Chronic hepatitis C without hepatic coma B18.2 Active 520041193 Problem Cannabis abuse F12.10 Active 13923 009 Problem Bipolar disorder, in partial remission, most rec ent episode hypomanic F31.71 Active [id number] Problem Attention deficit hyperactivity disorder (ADHD), combi luciano type F90.2 Active 61332199 Problem Bipolar 1 disorder F31.9 Active 3 11293710 Problem H/O laminectomy Z98.89 Active 1616 78314 Problem Other chronic pain G89.29 Active 8 6914835 Problem Anxiety disorder, unspecified type F41.9 Active [id number] ALLERGIES No Information ENCOUNTERS Encounter Location Date Diagnosis [facility] [address] [facility] [id number] [address] [place] [address] October, [facility] [address] [facility] [id number] [address] [place] [address] Aug, Bipolar disorder, in partial remission, most recent episode hypomanic F31.71 ; Attention deficit hyperactivity disorder (ADHD), combined type F90.2 and Anxiety disorder, unspecified type F41.9 [facility] [address] [facility] [id number] [address] [place] [id number] Aug, [facility] [address] [facility] [id number] [address] [place] [address] Aug, Bipolar disorder, in partial remission, most recent episode hypomanic F31.71 [facility] [address] [facility] [id number] [address] [place] [address] Aug, [facility] [address] [id number] [address] [place] [address] Aug, Bipolar disorder, in partial remission, most recent episode hypomanic F31.71 [facility] [address] [id number] [address] [place] [address] Aug, Bipolar disorder, in partial remission, most recent episode hypomanic F31.71 ; Attention deficit hyperactivity disorder (ADHD), combined type F90.2 and Anxiety disorder, unspecified type F41.9 [facility] [address] [id number] [address] [place] [address] Aug, Low back pain M54.5 and Pain in left wrist M25.532 [facility] [address] [id number] [address] [place] [address] Aug, [facility] [address] [id number] [address] [place] [address] Jun, [facility] [address] [facility] [id number] [address] [place] [address] Apr, Bipolar disorder, in partial remission, most recent episode hypomanic F31.71 [facility] [address] [id number] [address] [place] [address] Apr, [facility] [address] [id number] [address] [place] [address] Apr, Bipolar disorder, in partial remission, most recent episode hypomanic F31.71 ; Attention deficit hyperactivity disorder (ADHD), combined type F90.2 ; Anxiety disorder, unspecified type F41.9 and Other fdc (current) 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 Z79.899 [facility] [address] [id number] [address] [place] [address] Apr, Bipolar disorder, in partial remission, most recent episode hypomanic F31.71 [facility] [address] [id number] [address] [place] [address] Apr, Bipolar disorder, in partial remission, most recent episode hypomanic F31.71 [facility] [address] [facility] [id number] [address] [place] [address] Mar, [facility] [address] [id number] [address] [place] [address] Mar, Bipolar disorder, in partial remission, most recent episode hypomanic F31.71 ; Encounter for immunization Z23 and Low back pain M54.5 [facility] [address] [id number] [address] [place] [address] Mar, Bipolar disorder, in partial remission, most recent episode hypomanic F31.71 [facility] [address] [id number] [address] [place] [address] Mar, Bipolar disorder, in partial remission, most recent episode hypomanic F31.71 [facility] [address] [facility] [id number] [address] [place] [id number] Jan, Bipolar disorder, in partial remission, most recent episode hypomanic F31.71 [facility] [address] [facility] [id number] [address] [place] [address] Jan, Bipolar disorder, in partial remission, most recent episode hypomanic F31.71 [facility] [address] [facility] [id number] [address] [place] [address] Dec, Bipolar disorder, in partial remission, most recent episode hypomanic F31.71 [facility] [address] [facility] [id number] [address] [place] [address] Dec, Bipolar disorder, in partial remission, most recent episode hypomanic F31.71 ; Attention deficit hyperactivity disorder (ADHD), combined type F90.2 ; Anxiety disorder, unspecified type F41.9 and Other fdc (current) 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 Z79.899 [facility] [address] [facility] [id number] [address] [place] [address] Dec, Bipolar disorder, in partial remission, most recent episode hypomanic F31.71 [facility] [address] [facility] [id number] [address] [place] [address] Dec, Bipolar disorder, in partial remission, most recent episode hypomanic F31.71 [facility] [address] [id number] [address] [place] [address] October, Bipolar disorder, in partial remission, most recent episode hypomanic F31.71 [facility] [address] [id number] [address] [place] [address] October, [facility] [address] [id number] [address] [place] [address] October, [facility] [address] [id number] [address] [place] [address] Oct, Bipolar disorder, in partial remission, most recent episode hypomanic F31.71 ; Attention deficit hyperactivity disorder (ADHD), combined type F90.2 ; Anxiety disorder, unspecified type F41.9 and Encounter for drug screening Z02.83 [facility] [address] [id number] [address] [place] [address] Oct, Bipolar disorder, in partial remission, most recent episode hypomanic F31.71 [facility] [address] [id number] [address] [place] [address] Oct, Bipolar disorder, in partial remission, most recent episode hypomanic F31.71 [facility] [address] [id number] [address] [place] [address] Aug, Bipolar disorder, in partial remission, most recent episode hypomanic F31.71 [facility] [address] [id number] [address] [place] [address] Aug, Bipolar disorder, in partial remission, most recent episode hypomanic F31.71 [facility] [address] [id number] [address] [place] [address] Aug, Bipolar disorder, in partial remission, most recent episode hypomanic F31.71 [facility] [address] [id number] [address] [place] [address] Jul, Bipolar disorder, in partial remission, most recent episode hypomanic F31.71 ; Attention deficit hyperactivity disorder (ADHD), combined type F90.2 and Anxiety disorder, unspecified type F41.9 [facility] [address] [id number] [address] [place] [address] Jul, Bipolar disorder, in partial remission, most recent episode hypomanic F31.71 [facility] [address] [id number] [address] [place] [address] Jun, Bipolar disorder, in partial remission, most recent episode hypomanic F31.71 [facility] [address] [id number] [address] [place] [address] May, Bipolar disorder, in partial remission, most recent episode hypomanic F31.71 [facility] [address] [facility] [id number] [address] [place] [address] May, Bipolar disorder, in partial remission, most recent episode hypomanic F31.71 [facility] [address] [facility] [id number] [address] [place] [address] Apr, [facility] [address] [id number] [address] [place] [address] Apr, Bipolar disorder, in partial remission, most recent episode hypomanic F31.71 ; Attention deficit hyperactivity disorder (ADHD), combined type F90.2 ; Anxiety disorder, unspecified type F41.9 and Cannabis abuse F12.10 [facility] [address] [id number] [address] [place] [address] Apr, Attention deficit hyperactiv ity disorder (ADHD), combined type F90.2 [facility] [address] [id number] [address] [place] [address] Mar, Attention deficit hyperactiv ity disorder (ADHD), combined type F90.2 [facility] [address] [facility] [id number] [address] [place] [address] Mar, Anxiety disorder, unspecifie d type F41.9 [facility] [address] [facility] [id number] [address] [place] [address] Jan, Attention deficit hyperactiv ity disorder (ADHD), combined type F90.2 [facility] [address] [facility] [id number] [address] [place] [address] Jan, Anxiety disorder, unspecifie d type F41.9 [facility] [address] [facility] [id number] [address] [place] [address] Jan, Other chronic pain G89.29 ; Chronic hepatitis C without hepatic coma B18.2 and Bipolar 1 disorder F31.9 [facility] [address] [facility] [id number] [address] [place] [address] Dec, Attention deficit hyperactiv ity disorder (ADHD), combined type F90.2 [facility] [address] [facility] [id number] [address] [place] [address] Dec, Bipolar disorder, in partial remission, most recent episode hypomanic F31.71 ; Attention deficit hyperactivity disorder (ADHD), combined type F90.2 and Anxiety disorder, unspecified type F41.9 [facility] [address] [facility] [id number] [address] [place] [address] Dec, Bipolar disorder, in partial remission, most recent episode hypomanic F31.71 ; Attention deficit hyperactivity disorder (ADHD), combined type F90.2 and Anxiety disorder, unspecified type F41.9 [facility] [address] [facility] [id number] [address] [place] [address] Dec, Bipolar 1 disorder F31.9 and Attention deficit R41.840 [facility] [address] [facility] [id number] [address] [place] [phone] Oct, Other chronic pain G89.29 ; Alopecia L65.9 and Screening, lipid Z13.220 [facility] [address] [facility] [id number] [address] [place] [address] Oct, [facility] [address] [facility] [id number] [address] [place] [address] Aug, [facility] [address] [facility] [id number] [address] [place] [address] Aug, Eustachian tube dysfunction, right H69.81 ; Vertigo R42 and Other chronic pain G89.29 [facility] [address] [id number] [address] [place] [address] Aug, [facility] [address] [id number] [address] [place] [address] Jun, [facility] [address] [id number] [address] [place] [address] Jun, Low back pain M54.5 and Othe r chronic pain G89.29 [facility] [address] [id number] [address] [place] [address] Jun, [facility] [address] [id number] [address] [place] [address] May, [facility] [address] [id number] [address] [place] [address] Jan, [facility] [address] [id number] [address] [place] [address] Dec, [facility] [address] [id number] [address] [place] [address] Dec, [facility] [address] [id number] [address] [place] [address] Jun, [facility] [address] [id number] [address] [place] [address] Apr, Eustachian tube dysfunction, unspecified laterality H69.80 ; Hot flashes N95.1 and Encounter for immunization Z23 [facility] [address] [id number] [address] [place] [address] Jan, [facility] [address] [id number] [address] [place] [address] Jan, [facility] [address] [id number] [address] [place] [address] Jan, [facility] [address] [id number] [address] [place] [address] Jan, [facility] [address] [id number] [address] [place] [address] Jan, Encounter to establish care V65.8 ; Bipolar 1 disorder 296.7 ; Abdominal pain 789.00 ; Constipation 564.00 ; Hard of hearing 389.9 and Drug abuse 305.90 [facility] [address] [id number] [address] [place] [address] Dec, [facility] [address] [id number] [address] [place] [address] October, [facility] [address] [id number] [address] [place] [address] October, [facility] [address] [id number] [address] [place] [address] Oct, [facility] [address] [id number] [address] [place] [address] Oct, [facility] [address] [id number] [address] [place] [address] Oct, [facility] [address] [id number] [address] [place] [address] Aug, [facility] [address] [id number] [address] [place] [address] Aug, [facility] [address] [id number] [address] [place] [address] Aug, [facility] [address] [id number] [address] [place] [address] Aug, [facility] [address] [id number] [address] [place] [address] Aug, [facility] [address] [id number] [address] [place] [address] Aug, [facility] [address] [id number] [address] [place] [address], [place] [id number] Aug, 2014 [facility] [address] [id number] [address] [place] [address], [place] [address] Aug, 2014 [facility] [address] [id number] [address] [place] [address], [place] [address] Aug, 2014 [facility] [address] [id number] [address] [place] [address], [place] [address] Aug, 2014 [facility] [address] [id number] [address] [place] [address], [place] [address] Aug, 2014 [facility] [address] [id number] [address] [place] [address], [place] [id number] Aug, 2014 [facility] [address] [id number] [address] [place] [address], [place] [address] Aug, 2014 [facility] [address] [id number] [address] [place] [address], [place] [address] Aug, 2014 [facility] [address] [id number] [address] [place] [address], [place] [address] Aug, [facility] [address] [id number] [address] [place] [address], [place] [address] Jul, [facility] [address] [id number] [address] [place] [address], [place] [address] Jul, [facility] [address] [id number] [address] [place] [address], [place] [address] Jul, [facility] [address] [id number] [address] [place] [address], [place] [address] Jul, [facility] [address] [id number] [address] [place] [address], [place] [address] Jul, [facility] [address] [id number] [address] [place] [address], [place] [address] Jul, [facility] [address] [id number] [address] [place] [address], [place] [address] Jul, [facility] [address] [id number] [address] [place] [address], [place] [address] Jul, [facility] [address] [id number] [address] [place] [address], [place] [address] Jun, [facility] [address] [id number] [address] [place] [address], [place] [address] Jun, [facility] [address] [id number] [address] [place] [address], [place] [address] Jun, [facility] [address] [id number] [address] [place] [address], [place] [id number] Jun, [facility] [address] [id number] [address] [place] [address], [place] [address] Jun, [facility] [address] [id number] [address] [place] [address], [place] [id number] Jun, [facility] [address] [id number] [address] [place] [address], [place] [address] Jun, [facility] [address] [id number] [address] [place] [address], [place] [address] Jun, [facility] [address] [id number] [address] [place] [address], [place] [address] Jun, [facility] [address] [id number] [address] [place] [address], [place] [address] Jun, [facility] [address] [id number] [address] [place] [address], [place] [address] Jun, [facility] [address] [id number] [address] [place] [address], [place] [address] May, [facility] [address] [id number] [address] [place] [address], [place] [address] May, [facility] [address] [id number] [address] [place] [address], [place] [address] May, [facility] [address] [id number] [address] [place] [address], [place] [address] May, [facility] [address] [id number] [address] [place] [address], [place] [address] May, [facility] [address] [id number] [address] [place] [address], [place] [address] May, [facility] [address] [id number] [address] [place] [address], [place] [address] May, [facility] [address] [id number] [address] [place] [address], [place] [address] Apr, [facility] [address] [id number] [address] [place] [address], [place] [address] Apr, [facility] [address] [id number] [address] [place] [address], [place] [address] Apr, [facility] [address] [id number] [address] [place] [address], [place] [address] Apr, [facility] [address] [id number] [address] [place] [address], [place] [address] Apr, [facility] [address] [id number] [address] [place] [address], [place] [address] Apr, [facility] [address] [id number] [address] [place] [address], [place] [address] Mar, [facility] [address] [id number] [address] [place] [address], [place] [id number] 29 Mar, 2013 [facility] [address] [id number] [address] [place] [address], [place] [id number] 10 Mar, 2013 [facility] [address] [id number] [address] [place] [address], [place] [id number] 10 Mar, 2013 [facility] [address] [id number] [address] [place] [address], [place] [address] Mar, 2013 [facility] [address] [id number] [address] [place] [address], [place] [address] Mar, [facility] [address] [id number] [address] [place] [address], [place] [address] Jan, [facility] [address] [id number] [address] [place] [address], [place] [address] Jan, [facility] [address] [id number] [address] [place] [address], [place] [address] Jan, [facility] [address] [id number] [address] [place] [address], [place] [address] Jan, [facility] [address] [id number] [address] [place] [address], [place] [id number] Dec, [facility] [address] [id number] [address] [place] [address], [place] [address] Dec, [facility] [address] [id number] [address] [place] [address], [place] [id number] Dec, [facility] [address] [id number] [address] [place] [address], [place] [id number] Dec, [facility] [address] [id number] [address] [place] [address], [place] [id number] Dec, [facility] [address] [id number] [address] [place] [address], [place] [id number] Dec, [facility] [address] [id number] [address] [place] [address], [place] [id number] Dec, [facility] [address] [id number] [address] [place] [address], [place] [id number] Dec, [facility] [address] [id number] [address] [place] [address], [place] [id number] Dec, [facility] [address] [id number] [address] [place] [address], [place] [id number] Dec, [facility] [address] [id number] [address] [place] [address], [place] [id number] Dec, [facility] [address] [id number] [address] [place] [address], [place] [id number] Dec, [facility] [address] [id number] [address] [place] [address], [place] [id number] October, [facility] [address] [id number] [address] [place] [address], [place] [id number] October, [facility] [address] [id number] [address] [place] [address], [place] [id number] October, [facility] [address] [id number] [address] [place] [address], [place] [id number] October, [facility] [address] [id number] [address] [place] [address], [place] [id number] October, [facility] [address] [id number] [address] [place] [address], [place] [id number] October, [facility] [address] [id number] [address] [place] [address], [place] [id number] Oct, [facility] [address] [id number] [address] [place] [address], [place] [id number] Oct, [facility] [address] [id number] [address] [place] [address], [place] [id number] Oct, [facility] [address] [id number] [address] [place] [address], [place] [id number] Oct, [facility] [address] [id number] [address] [place] [address], [place] [id number] Oct, [facility] [address] [id number] [address] [place] [address], [place] [id number] Oct, [facility] [address] [id number] [address] [place] [address], [place] [id number] Oct, [facility] [address] [id number] [address] [place] [address], [place] [id number] Oct, [facility] [address] [id number] [address] [place] [address], [place] [id number] Oct, [facility] [address] [id number] [facility] [place] [id number] 09 Oct, [address] [facility] [address] [id number] [facility] [place] [id number] Oct, [facility] [address] [id number] [address] [place] [address], [place] [id number] Oct, [facility] [address] [id number] [address] [place] [address], [place] [address] Aug, [facility] [address] [id number] [address] [place] [address], [place] [id number] Aug, [facility] [address] [id number] [address] [place] [address], [place] [address] Aug, [facility] [address] [id number] [address] [place] [address], [place] [id number] Aug, [facility] [address] [id number] [address] [place] [address], [place] [id number] Aug, [facility] [address] [id number] [address] [place] [address], [place] [id number] 05 Aug, [address] [facility] [address] [id number] [address] [place] [address], [place] [address] Aug, [facility] [address] [id number] [address] [place] [address], [place] [address] Aug, [facility] [address] [id number] [address] [place] [address], [place] [id number] Aug, [facility] [address] [id number] [address] [place] [address], [place] [address] Aug, [facility] [address] [id number] [address] [place] [address], [place] [address] Aug, [facility] [address] [id number] [address] [place] [address], [place] [id number] Aug, [facility] [address] [id number] [address] [place] [address], [place] [id number] Aug, [facility] [address] [id number] [address] [place] [address], [place] [address] 20 Aug, 2013 [facility] [address] [id number] [address] [place] [address], [place] [id number] 14 Aug, 2013 [facility] [address] [id number] [address] [place] [address], [place] [address] 14 Aug, 2013 [facility] [address] [id number] [address] [place] [address], [place] [id number] 14 Aug, 2013 [facility] [address] [id number] [address] [place] [address], [place] [id number] 14 Aug, 2013 [facility] [address] [id number] [address] [place] [address], [place] [id number] 07 Aug, 2013 [facility] [address] [id number] [address] [place] [address], [place] [id number] 07 Aug, 2013 [facility] [address] [id number] [address] [place] [address], [place] [id number] 06 Aug, 2013 [facility] [address] [id number] [address] [place] [address], [place] [id number] 06 Aug, 2013 [facility] [address] [id number] [address] [place] [address], [place] [id number] 04 Aug, 2013 [facility] [address] [id number] [address] [place] [address], [place] [id number] 04 Aug, 2013 [facility] [address] [id number] [address] [place] [address], [place] [address] Aug, [facility] [address] [id number] [address] [place] [address], [place] [address] Jul, [facility] [address] [id number] [address] [place] [address], [place] [address] Jul, [facility] [address] [id number] [address] [place] [address], [place] [address] Jul, [facility] [address] [id number] [address] [place] [address], [place] [address] Jul, [facility] [address] [id number] [address] [place] [address], [place] [address] Jul, [facility] [address] [id number] [address] [place] [address], [place] [address] Jul, [facility] [address] [id number] [address] [place] [address], [place] [address] Jul, [facility] [address] [id number] [address] [place] [address], [place] [id number] Jul, [facility] [address] [id number] [address] [place] [address], [place] [id number] Jul, [facility] [address] [id number] [address] [place] [address], [place] [address] Jul, [facility] [address] [id number] [address] [place] [address], [place] [address] Jul, [facility] [address] [id number] [address] [place] [address], [place] [address] Jul, [facility] [address] [id number] [address] [place] [address], [place] [address] Jul, [facility] [address] [id number] [address] [place] [address], [place] [address] Jul, [facility] [address] [id number] [address] [place] [address], [place] [address] Jul, [facility] [address] [id number] [address] [place] [address], [place] [id number] Jul, [facility] [address] [id number] [address] [place] [address], [place] [address] Jul, [facility] [address] [id number] [address] [place] [address], [place] [address] Jul, [facility] [address] [id number] [address] [place] [address], [place] [address] Jul, [facility] [address] [id number] [address] [place] [address], [place] [address] Jul, [facility] [address] [id number] [address] [place] [address], [place] [address] Jun, [facility] [address] [id number] [address] [place] [address], [place] [address] Jun, [facility] [address] [id number] [address] [place] [address], [place] [address] Jun, [facility] [address] [id number] [address] [place] [address], [place] [address] Jun, [facility] [address] [id number] [address] [place] [address], [place] [address] Jun, [facility] [address] [id number] [address] [place] [address], [place] [address] Jun, [facility] [address] [id number] [address] [place] [address], [place] [address] Jun, [facility] [address] [id number] [address] [place] [address], [place] [address] Jun, [facility] [address] [id number] [address] [place] [address], [place] [id number] Jun, [facility] [address] [id number] [address] [place] [address], [place] [address] Jun, [facility] [address] [id number] [address] [place] [address], [place] [address] Jun, [facility] [address] [id number] [address] [place] [address], [place] [address] Jun, [facility] [address] [id number] [address] [place] [address], [place] [address] Jun, [facility] [address] [id number] [address] [place] [address], [place] [address] Jun, [facility] [address] [id number] [address] [place] [address], [place] [address] 20 Jun, 2013 [facility] [address] [id number] [address] [place] [address], [place] [id number] 18 Jun, 2013 [facility] [address] [id number] [address] [place] [address], [place] [address] 18 Jun, 2013 [facility] [address] [id number] [address] [place] [address], [place] [address] 17 Jun, 2013 [facility] [address] [id number] [address] [place] [address], [place] [address] 17 Jun, 2013 [facility] [address] [id number] [address] [place] [address], [place] [address] 13 Jun, 2013 [facility] [address] [id number] [address] [place] [address], [place] [address] 12 Jun, 2013 [facility] [address] [id number] [address] [place] [address], [place] [address] 12 Jun, 2013 [facility] [address] [id number] [address] [place] [address], [place] [address] 09 Jun, 2013 [facility] [address] [id number] [address] [place] [address], [place] [address] 05 Jun, 2013 [facility] [address] [id number] [address] [place] [address], [place] [address] 05 Jun, 2013 [facility] [address] [id number] [address] [place] [address], [place] [address] 04 Jun, 2013 [facility] [address] [id number] [address] [place] [address], [place] [address] 04 Jun, [address] [facility] [address] [id number] [address] [place] [address], [place] [address] 17 May, 2013 [facility] [address] [id number] [address] [place] [address], [place] [address] 17 May, 2013 [facility] [address] [id number] [address] [place] [address], [place] [address] May, [facility] [address] [id number] [address] [place] [address], [place] [address] May, [facility] [address] [id number] [address] [place] [address], [place] [address] May, [facility] [address] [id number] [address] [place] [address], [place] [address] May, [facility] [address] [id number] [address] [place] [address], [place] [address] Apr, [facility] [address] [id number] [address] [place] [address], [place] [address] Apr, [facility] [address] [id number] [address] [place] [address], [place] [address] Apr, [facility] [address] [id number] [address] [place] [address], [place] [address] Apr, [facility] [address] [id number] [address] [place] [address], [place] [address] Apr, [facility] [address] [id number] [address] [place] [address], [place] [address] Apr, [facility] [address] [id number] [address] [place] [address], [place] [address] Apr, [facility] [address] [id number] [address] [place] [address], [place] [address] Apr, [facility] [address] [id number] [address] [place] [address], [place] [address] 26 Mar, 2013 [facility] [address] [id number] [address] [place] [address], [place] [address] 24 Sep2012 [facility] [address] [id number] [address] [place] [address], [place] [address] 17 Mar, 2013 [facility] [address] [id number] [address] [place] [address], [place] [address] 17 Mar, 2013 [facility] [address] [id number] [address] [place] [address] [place] [id number] 11 Mar, 2013 [facility] [address] [id number] [address] [place] [address], [place] [address] 10 Mar, 2013 [facility] [address] [id number] [address] [place] [address], [place] [address] 05 Mar, 2013 [facility] [address] [id number] [address] [place] [address], [place] [address] 04 Mar, 2013 [facility] [address] [id number] [address] [place] [address], [place] [address] 20 Jan, 2013 [facility] [address] [id number] [address] [place] [address], [place] [address] Jan, [facility] [address] [id number] [address] [place] [address], [place] [id number] 14 Jan, 2013 [facility] [address] [id number] [address] [place] [address], [place] [address] Jan, [facility] [address] [id number] [address] [place] [address], [place] [address] Jan, [facility] [address] [id number] [address] [place] [address], [place] [address] Jan, [facility] [address] [id number] [address] [place] [address], [place] [address] Dec, [facility] [address] [id number] [address] [place] [address], [place] [address] Dec, [facility] [address] [id number] [address] [place] [address], [place] [address] Dec, [facility] [address] [id number] [address] [place] [address], [place] [address] Dec, [facility] [address] [id number] [address] [place] [address], [place] [address] Dec, [facility] [address] [id number] [address] [place] [address], [place] [address] 17 Dec, 2012 [facility] [address] [id number] [address] [place] [address], [place] [address] 16 Dec, 2012 [facility] [address] [id number] [address] [place] [address], [place] [address] 16 Dec, [address] [facility] [address] [id number] [address] [place] [address], [place] [address] 15 Dec, [address] [facility] [address] [id number] [address] [place] [address], [place] [id number] 10 Dec, 2012 [facility] [address] [id number] [address] [place] [address], [place] [address] 28 Dec, 2012 [facility] [address] [id number] [address] [place] [address], [place] [address] Dec, [facility] [address] [id number] [address] [place] [address], [place] [address] Dec, [facility] [address] [id number] [address] [place] [address], [place] [address] Dec, [facility] [address] [id number] [address] [place] [address], [place] [address] Dec, [facility] [address] [id number] [address] [place] [address], [place] [address] Dec, [facility] [address] [id number] [address] [place] [address], [place] [address] October, [facility] [address] [id number] [address] [place] [address], [place] [address] October, [facility] [address] [id number] [address] [place] [address], [place] [address] October, [facility] [address] [id number] [address] [place] [address], [place] [address] October, [facility] [address] [id number] [address] [place] [address], [place] [address] October, [facility] [address] [id number] [address] [place] [address], [place] [address] October, [facility] [address] [id number] [address] [place] [address], [place] [address] October, [facility] [address] [id number] [address] [place] [address], [place] [id number] Oct, [facility] [address] [id number] [address] [place] [address], [place] [address] Oct, [facility] [address] [id number] [address] [place] [address], [place] [address] Oct, [facility] [address] [id number] [address] [place] [address], [place] [address] Oct, [facility] [address] [id number] [address] [place] [address], [place] [address] Oct, [facility] [address] [id number] [address] [place] [address], [place] [address] Oct, [facility] [address] [id number] [address] [place] [address], [place] [id number] Oct, [facility] [address] [id number] [address] [place] [address], [place] [id number] 15 Oct, 2012 [facility] [address] [id number] [address] [place] [address], [place] [address] Oct, [facility] [address] [id number] [address] [place] [address], [place] [address] Oct, [facility] [address] [id number] [address] [place] [address], [place] [address] Oct, [facility] [address] [id number] [address] [place] [address], [place] [address] Oct, [facility] [address] [id number] [address] [place] [address], [place] [address] Aug, [facility] [address] [id number] [address] [place] [address], [place] [address] Aug, [facility] [address] [id number] [address] [place] [address], [place] [address] 12 Aug, [address] [facility] [address] [id number] [address] [place] [address], [place] [address] 06 Aug, 2012 [facility] [address] [id number] [address] [place] [address], [place] [address] 05 Aug, 2012 [facility] [address] [id number] [address] [place] [address], [place] [address] 05 Aug, 2012 [facility] [address] [id number] [address] [place] [address], [place] [id number] 20 Aug, 2012 [facility] [address] [id number] [address] [place] [address], [place] [address] 14 Aug, [address] [facility] [address] [id number] [address] [place] [address], [place] [address] 12 Aug, [address] [facility] [address] [id number] [address] [place] [address], [place] [id number] Aug, [facility] [address] [id number] [address] [place] [address], [place] [id number] Jul, [facility] [address] [id number] [address] [place] [address], [place] [address] Jul, [facility] [address] [id number] [address] [place] [address], [place] [address] Jul, [facility] [address] [id number] [address] [place] [address], [place] [address] Jun, [facility] [address] [id number] [address] [place] [address], [place] [address] Jun, [facility] [address] [id number] [address] [place] [address], [place] [id number] Jun, [facility] [address] [id number] [address] [place] [address], [place] [address] Jun, [facility] [address] [id number] [address] [place] [address], [place] [id number] Jun, [facility] [address] [id number] [address] [place] [address], [place] [address] 14 Jun, 2012 [facility] [address] [id number] [address] [place] [address], [place] [id number] 14 Jun, 2012 [facility] [address] [id number] [address] [place] [address], [place] [id number] 13 Jun, 2012 [facility] [address] [id number] [address] [place] [address], [place] [id number] 13 Jun, 2012 [facility] [address] [id number] [address] [place] [address], [place] [id number] 11 Jun, 2012 [facility] [address] [id number] [address] [place] [address], [place] [id number] 11 Jun, 2012 [facility] [address] [id number] [address] [place] [address], [place] [id number] 11 Jun, 2012 [facility] [address] [id number] [address] [place] [address], [place] [id number] 11 Jun, 2012 [facility] [address] [id number] [address] [place] [address], [place] [id number] 07 Jun, 2012 [facility] [address] [id number] [address] [place] [address], [place] [id number] 07 Jun, [address] [facility] [address] [id number] [address] [place] [address], [place] [id number] 06 Jun, 2012 [facility] [address] [id number] [address] [place] [address], [place] [id number] 06 Jun, 2012 [facility] [address] [id number] [address] [place] [address], [place] [address] Jun, [facility] [address] [id number] [address] [place] [address], [place] [id number] 06 Jun, 2012 [facility] [address] [id number] [address] [place] [address], [place] [id number] 05 Jun, 2012 [facility] [address] [id number] [address] [place] [address], [place] [id number] Jun, [facility] [address] [id number] [address] [place] [address], [place] [id number] Jun, [facility] [address] [id number] [address] [place] [address], [place] [id number] Jun, [facility] [address] [id number] [address] [place] [address], [place] [id number] May, [facility] [address] [id number] [address] [place] [address], [place] [id number] May, [facility] [address] [id number] [address] [place] [address], [place] [address] May, [facility] [address] [id number] [address] [place] [address], [place] [id number] May, [facility] [address] [id number] [address] [place] [address], [place] [id number] May, [facility] [address] [id number] [address] [place] [address], [place] [address] May, [facility] [address] [id number] [address] [place] [address], [place] [id number] May, [facility] [address] [id number] [address] [place] [address], [place] [id number] May, [facility] [address] [id number] [address] [place] [address], [place] [address] Apr, [facility] [address] [id number] [address] [place] [id number] Apr, [facility] [address] [id number] [address] [place] [address], [place] [id number] Apr, [facility] [address] [id number] [address] [place] [address], [place] [address] Apr, [facility] [address] [id number] [address] [place] [id number] Apr, [facility] [address] [id number] [address] [place] [address], [place] [id number] Apr, [facility] [address] [id number] [address] [place] [address], [place] [id number] Apr, [facility] [address] [id number] [address] [place] [address], [place] [address] Apr, [facility] [address] [id number] [address] [place] [address], [place] [id number] Apr, [facility] [address] [id number] [address] [place] [address], [place] [id number] Apr, [facility] [address] [id number] [address] [place] [address], [place] [id number] Apr, [facility] [address] [id number] [address] [place] [address], [place] [id number] Apr, [facility] [address] [id number] [address] [place] [address], [place] [id number] Mar, [facility] [address] [id number] [address] [place] [address], [place] [id number] 18 Mar, 2012 [facility] [address] [id number] [address] [place] [id number] Mar, [facility] [address] [id number] [address] [place] [id number] Mar, [facility] [address] [id number] [address] [place] [id number] Mar, [facility] [address] [id number] [address] [place] [id number] Mar, [facility] [address] [id number] [address] [place] [address], [place] [address] Mar, [facility] [address] [id number] [address] [place] [address], [place] [id number] Jan, [facility] [address] [id number] [address] [place] [id number] Jan, [facility] [address] [id number] [facility] [place] [id number] Jan, [facility] [address] [id number] [facility] [place], [place] [id number] Jan, [facility] [address] [id number] [address] [place] [address], [place] [id number] Jan, [facility] [address] [id number] [address] [place] [address], [place] [address] Jan, [facility] [address] [id number] [address] [place] [address], [place] [address] Jan, [facility] [address] [id number] [address] [place] [address], [place] [address] Jan, [facility] [address] [id number] [address] [place] [address], [place] [address] Jan, [facility] [address] [id number] [address] [place] [address], [place] [address] Jan, [facility] [address] [id number] [address] [place] [address], [place] [address] Jan, [facility] [address] [id number] [address] [place] [address], [place] [address] Dec, [facility] [address] [id number] [address] [place] [address], [place] [address] Dec, [facility] [address] [id number] [address] [place] [address], [place] [address] Dec, [facility] [address] [id number] [address] [place] [address], [place] [address] Dec, [facility] [address] [id number] [address] [place] [address], [place] [address] Dec, [facility] [address] [id number] [address] [place] [address], [place] [address] Dec, [facility] [address] [id number] [address] [place] [address] [place] [id number] 18 Jan, 2012 [facility] [address] [id number] [address] [place] [address], [place] [id number] 17 Jan, 2012 [facility] [address] [id number] [address] [place] [address], [place] [id number] 16 Jan, 2012 [facility] [address] [id number] [address] [place] [address], [place] [id number] 13 Jan, 2012 [facility] [address] [id number] [address] [place] [address], [place] [address] 13 Jan, 2012 [facility] [address] [id number] [address] [place] [address], [place] [id number] 02 Jan, 2012 [facility] [address] [id number] [address] [place] [address], [place] [address] Dec, [facility] [address] [id number] [address] [place] [address], [place] [address] Dec, [facility] [address] [id number] [address] [place] [address], [place] [address] Dec, [facility] [address] [id number] [address] [place] [address], [place] [address] Dec, [facility] [address] [id number] [address] [place] [address], [place] [id number] 15 Dec, 2011 [facility] [address] [id number] [address] [place] [address], [place] [address] Dec, [facility] [address] [id number] [address] [place] [address], [place] [address] Dec, [facility] [address] [id number] [address] [place] [address], [place] [address] October, [facility] [address] [id number] [address] [place] [address], [place] [address] October, [facility] [address] [id number] [address] [place] [address], [place] [address] October, [facility] [address] [id number] [address] [place] [address], [place] [id number] October, [facility] [address] [id number] [address] [place] [address], [place] [address] October, [facility] [address] [id number] [address] [place] [address], [place] [address] October, [facility] [address] [id number] [address] [place] [address], [place] [id number] Oct, [facility] [address] [id number] [address] [place] [address], [place] [id number] 24 Oct, 2011 [facility] [address] [id number] [address] [place] [address], [place] [address] Oct, [facility] [address] [id number] [address] [place] [address], [place] [id number] Oct, [facility] [address] [id number] [address] [place] [address], [place] [address] Oct, [facility] [address] [id number] [address] [place] [address], [place] [address] Oct, [facility] [address] [id number] [address] [place] [address], [place] [address] Oct, [facility] [address] [id number] [address] [place] [address], [place] [address] Aug, [facility] [address] [id number] [address] [place] [address], [place] [address] 29 Sep, [address] [facility] [address] [id number] [address] [place] [address], [place] [id number] 19 Sep, 2011 [facility] [address] [id number] [address] [place] [address], [place] [address] 13 Sep, 2011 [facility] [address] [id number] [address] [place] [address], [place] [id number] 05 Sep, 2011 [facility] [address] [id number] [address] [place] [address], [place] [address] Aug, [facility] [address] [id number] [address] [place] [address], [place] [address] Aug, [facility] [address] [id number] [address] [place] [address], [place] [address] Aug, [facility] [address] [id number] [address] [place] [address], [place] [address] Aug, [facility] [address] [id number] [address] [place] [address], [place] [address] Jul, [facility] [address] [id number] [address] [place] [address], [place] [address] Jul, [facility] [address] [id number] [address] [place] [address], [place] [address] Jul, [facility] [address] [id number] [address] [place] [address], [place] [id number] Jul, [facility] [address] [id number] [address] [place] [address], [place] [address] Jun, [facility] [address] [id number] [address] [place] [address], [place] [address] Jun, [facility] [address] [id number] [address] [place] [address], [place] [address] May, [facility] [address] [id number] [address] [place] [address], [place] [id number] May, [facility] [address] [id number] [address] [place] [address], [place] [address] May, [facility] [address] [id number] [address] [place] [address], [place] [address] May, [facility] [address] [id number] [address] [place] [address], [place] [address] 07 May, 2011 [facility] [address] [id number] [address] [place] [address], [place] [address] Apr, [facility] [address] [id number] [address] [place] [address] Apr, [facility] [address] [id number] [address] [place] [id number] Apr, [facility] [address] [id number] [address] [place] [id number] Jan, [facility] [address] [id number] [address] [place] [id number] Dec, [facility] [address] [id number] [address] [place] [id number] October, [facility] [address] [id number] [address] [place] [id number] Jun, [facility] [address] [id number] [address] [place] [id number] Apr, [facility] [address] [id number] [address] [place] [id number] Apr, [facility] [address] [id number] [address] [place] [id number] Apr, [facility] [address] [id number] [address] [place] [id number] Jun, IMMUNIZATIONS No Known Immunizations SOCIAL HISTORY Never Assessed REASON FOR VISIT [facility] [place] CARE VITAL SIGNS MEDICATIONS Unknown Medications RESULTS No Results PROCEDURES No Known procedures INSTRUCTIONS MEDICATIONS ADMINISTERED No Known Medications MEDICAL (GENERAL) HISTORY Type Description Date Medical History Psychiatric disorder Medical History Hard of hearing Surgical History Neofibrous tumor Surgical History back injection Hospitalization History Intestinal blockage Hospitalization History past psychiatric hospitalizations x2
--- OUTSIDE RECORDS SUMMARY | 2020-01-25 12:52 | XMS REPORT ---
Author Author Ana Mayer Doctor Organization [facility] Address Unknown Phone Unavailable Care Team Providers Care Rehabilitation Psychologist Name Role Phone Migration, Doctor Unavailable Unavailable PROBLEMS Type Condition ICD9-CM Code XUW79-RE Code Onset Dates Condition S tatus SNOMED Code Problem Attention deficit R41.840 Active 76 976348 Problem Chronic hepatitis C without hepatic coma B18.2 Active 504235731 Problem Cannabis abuse F12.10 Active 70187 009 Problem Bipolar disorder, in partial remission, most rec ent episode hypomanic F31.71 Active 807446561 Problem Attention deficit hyperactivity disorder (ADHD), combi luciano type F90.2 Active 81047774 Problem Bipolar 1 disorder F31.9 Active 3 96357305 Problem H/O laminectomy Z98.89 Active 1616 55687 Problem Other chronic pain G89.29 Active 8 3905681 Problem Anxiety disorder, unspecified type F41.9 Active [id number] ALLERGIES No Information ENCOUNTERS Encounter Location Date Diagnosis [facility] [address] [facility] [id number] [address] [place] [address] Oct, [facility] [address] [facility] [id number] [address] [place] [address] Aug, Bipolar disorder, in partial remission, most recent episode hypomanic F31.71 ; Attention deficit hyperactivity disorder (ADHD), combined type F90.2 and Anxiety disorder, unspecified type F41.9 [facility] [address] [facility] [id number] [address] [place] [address] Aug, [facility] [address] [facility] [id number] [address] [place] [address] Aug, Bipolar disorder, in partial remission, most recent episode hypomanic F31.71 [facility] [address] [facility] [id number] [address] [place] [address] Aug, [facility] [address] [id number] [address] [place] [address] Aug, Bipolar disorder, in partial remission, most recent episode hypomanic F31.71 [facility] [address] [id number] [address] [place] [address] Aug, Bipolar disorder, in partial remission, most recent episode hypomanic F31.71 ; Attention deficit hyperactivity disorder (ADHD), combined type F90.2 and Anxiety disorder, unspecified type F41.9 [facility] [address] [id number] [address] [place] [address] Aug, Low back pain M54.5 and Pain in left wrist M25.532 [facility] [address] [id number] [address] [place] [address] Aug, [facility] [address] [id number] [address] [place] [address] Jun, [facility] [address] [facility] [id number] [address] [place] [address] Apr, Bipolar disorder, in partial remission, most recent episode hypomanic F31.71 [facility] [address] [id number] [address] [place] [address] Apr, [facility] [address] [id number] [address] [place] [address] Apr, Bipolar disorder, in partial remission, most recent episode hypomanic F31.71 ; Attention deficit hyperactivity disorder (ADHD), combined type F90.2 ; Anxiety disorder, unspecified type F41.9 and [facility] [place] [facility] [place] 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 Z79.899 [facility] [address] [id number] [address] [place] [address] Apr, Bipolar disorder, in partial remission, most recent episode hypomanic F31.71 [facility] [address] [id number] [address] [place] [address] Apr, Bipolar disorder, in partial remission, most recent episode hypomanic F31.71 [facility] [address] [facility] [id number] [address] [place] [address] Mar, [facility] [address] [id number] [address] [place] [address] Mar, Bipolar disorder, in partial remission, most recent episode hypomanic F31.71 ; Encounter for immunization Z23 and Low back pain M54.5 [facility] [address] [id number] [address] [place] [address] Mar, Bipolar disorder, in partial remission, most recent episode hypomanic F31.71 [facility] [address] [id number] [address] [place] [address] Mar, Bipolar disorder, in partial remission, most recent episode hypomanic F31.71 [facility] [address] [facility] [id number] [address] [place] [address] Jan, Bipolar disorder, in partial remission, most recent episode hypomanic F31.71 [facility] [address] [facility] [id number] [address] [place] [address] Jan, Bipolar disorder, in partial remission, most recent episode hypomanic F31.71 [facility] [address] [facility] [id number] [address] [place] [address] Dec, Bipolar disorder, in partial remission, most recent episode hypomanic F31.71 [facility] [address] [facility] [id number] [address] [place] [address] Dec, Bipolar disorder, in partial remission, most recent episode hypomanic F31.71 ; Attention deficit hyperactivity disorder (ADHD), combined type F90.2 ; Anxiety disorder, unspecified type F41.9 and [place] [facility] [place] 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 Z79.899 [facility] [address] [facility] [id number] [address] [place] [address] Dec, Bipolar disorder, in partial remission, most recent episode hypomanic F31.71 [facility] [address] [facility] [id number] [address] [place] [address] Dec, Bipolar disorder, in partial remission, most recent episode hypomanic F31.71 [facility] [address] [id number] [address] [place] [address] October, Bipolar disorder, in partial remission, most recent episode hypomanic F31.71 [facility] [address] [id number] [address] [place] [address] October, [facility] [address] [id number] [address] [place] [address] October, [facility] [address] [id number] [address] [place] [address] Oct, Bipolar disorder, in partial remission, most recent episode hypomanic F31.71 ; Attention deficit hyperactivity disorder (ADHD), combined type F90.2 ; Anxiety disorder, unspecified type F41.9 and Encounter for drug screening Z02.83 [facility] [address] [id number] [address] [place] [address] Oct, Bipolar disorder, in partial remission, most recent episode hypomanic F31.71 [facility] [address] [id number] [address] [place] [address] Oct, Bipolar disorder, in partial remission, most recent episode hypomanic F31.71 [facility] [address] [id number] [address] [place] [address] Aug, Bipolar disorder, in partial remission, most recent episode hypomanic F31.71 [facility] [address] [id number] [address] [place] [address] Aug, Bipolar disorder, in partial remission, most recent episode hypomanic F31.71 [facility] [address] [id number] [address] [place] [address] Aug, Bipolar disorder, in partial remission, most recent episode hypomanic F31.71 [facility] [address] [id number] [address] [place] [address] Jul, Bipolar disorder, in partial remission, most recent episode hypomanic F31.71 ; Attention deficit hyperactivity disorder (ADHD), combined type F90.2 and Anxiety disorder, unspecified type F41.9 [facility] [address] [id number] [address] [place] [address] Jul, Bipolar disorder, in partial remission, most recent episode hypomanic F31.71 [facility] [address] [id number] [address] [place] [address] Jun, Bipolar disorder, in partial remission, most recent episode hypomanic F31.71 [facility] [address] [id number] [address] [place] [address] May, Bipolar disorder, in partial remission, most recent episode hypomanic F31.71 [facility] [address] [facility] [id number] [address] [place] [address] May, Bipolar disorder, in partial remission, most recent episode hypomanic F31.71 [facility] [address] [facility] [id number] [address] [place] [address] Apr, [facility] [address] [id number] [address] [place] [address] Apr, Bipolar disorder, in partial remission, most recent episode hypomanic F31.71 ; Attention deficit hyperactivity disorder (ADHD), combined type F90.2 ; Anxiety disorder, unspecified type F41.9 and Cannabis abuse F12.10 [facility] [address] [id number] [address] [place] [address] Apr, Attention deficit hyperactiv ity disorder (ADHD), combined type F90.2 [facility] [address] [id number] [address] [place] [address] Mar, Attention deficit hyperactiv ity disorder (ADHD), combined type F90.2 [facility] [address] [facility] [id number] [address] [place] [address] Mar, Anxiety disorder, unspecifie d type F41.9 [facility] [address] [facility] [id number] [address] [place] [address] Jan, Attention deficit hyperactiv ity disorder (ADHD), combined type F90.2 [facility] [address] [facility] [id number] [address] [place] [address] Jan, Anxiety disorder, unspecifie d type F41.9 [facility] [address] [facility] [id number] [address] [place] [address] Jan, Other chronic pain G89.29 ; Chronic hepatitis C without hepatic coma B18.2 and Bipolar 1 disorder F31.9 [facility] [address] [facility] [id number] [address] [place] [address] Dec, Attention deficit hyperactiv ity disorder (ADHD), combined type F90.2 [facility] [address] [facility] [id number] [address] [place] [address] Dec, Bipolar disorder, in partial remission, most recent episode hypomanic F31.71 ; Attention deficit hyperactivity disorder (ADHD), combined type F90.2 and Anxiety disorder, unspecified type F41.9 [facility] [address] [facility] [id number] [address] [place] [address] Dec, Bipolar disorder, in partial remission, most recent episode hypomanic F31.71 ; Attention deficit hyperactivity disorder (ADHD), combined type F90.2 and Anxiety disorder, unspecified type F41.9 [facility] [address] [facility] [id number] [address] [place] [address] Dec, Bipolar 1 disorder F31.9 and Attention deficit R41.840 [facility] [address] [facility] [id number] [address] [place] [address] Oct, Other chronic pain G89.29 ; Alopecia L65.9 and Screening, lipid Z13.220 [facility] [address] [facility] [id number] [address] [place] [address] Oct, [facility] [address] [facility] [id number] [address] [place] [address] Aug, [facility] [address] [facility] [id number] [address] [place] [address] Aug, Eustachian tube dysfunction, right H69.81 ; Vertigo R42 and Other chronic pain G89.29 [facility] [address] [id number] [address] [place] [address] Aug, [facility] [address] [id number] [address] [place] [address] Jun, [facility] [address] [id number] [address] [place] [address] Jun, Low back pain M54.5 and Othe r chronic pain G89.29 [facility] [address] [id number] [address] [place] [address] Jun, [facility] [address] [id number] [address] [place] [address] May, [facility] [address] [id number] [address] [place] [address] Jan, [facility] [address] [id number] [address] [place] [address] Dec, [facility] [address] [id number] [address] [place] [address] Dec, [facility] [address] [id number] [address] [place] [address] Jun, [facility] [address] [id number] [address] [place] [address] Apr, Eustachian tube dysfunction, unspecified laterality H69.80 ; Hot flashes N95.1 and Encounter for immunization Z23 [facility] [address] [id number] [address] [place] [address] Jan, [facility] [address] [id number] [address] [place] [address] Jan, [facility] [address] [id number] [address] [place] [address] Jan, [facility] [address] [id number] [address] [place] [address] Jan, [facility] [address] [id number] [address] [place] [address] Jan, Encounter to establish care V65.8 ; Bipolar 1 disorder 296.7 ; Abdominal pain 789.00 ; Constipation 564.00 ; Hard of hearing 389.9 and Drug abuse 305.90 [facility] [address] [id number] [address] [place] [address] Dec, [facility] [address] [id number] [address] [place] [address] October, [facility] [address] [id number] [address] [place] [address] October, [facility] [address] [id number] [address] [place] [address] Oct, [facility] [address] [id number] [address] [place] [address] Oct, [facility] [address] [id number] [address] [place] [address] Oct, [facility] [address] [id number] [address] [place] [address] Aug, [facility] [address] [id number] [address] [place] [address] Aug, [facility] [address] [id number] [address] [place] [address] Aug, [facility] [address] [id number] [address] [place] [address] Aug, [facility] [address] [id number] [address] [place] [address] Aug, [facility] [address] [id number] [address] [place] [address] Aug, [facility] [address] [id number] [address] [place] [address], [place] [address] Aug, 2014 [facility] [address] [id number] [address] [place] [address], [place] [address] Aug, 2014 [facility] [address] [id number] [address] [place] [address], [place] [address] Aug, 2014 [facility] [address] [id number] [address] [place] [address], [place] [address] Aug, 2014 [facility] [address] [id number] [address] [place] [address], [place] [address] Aug, 2014 [facility] [address] [id number] [address] [place] [address], [place] [address] Aug, 2014 [facility] [address] [id number] [address] [place] [address], [place] [address] Aug, 2014 [facility] [address] [id number] [address] [place] [address], [place] [address] Aug, 2014 [facility] [address] [id number] [address] [place] [address], [place] [address] Aug, [facility] [address] [id number] [address] [place] [address], [place] [address] Jul, [facility] [address] [id number] [address] [place] [address], [place] [address] Jul, [facility] [address] [id number] [address] [place] [address], [place] [address] Jul, [facility] [address] [id number] [address] [place] [address], [place] [address] Jul, [facility] [address] [id number] [address] [place] [address], [place] [address] Jul, [facility] [address] [id number] [address] [place] [address], [place] [address] Jul, [facility] [address] [id number] [address] [place] [address], [place] [address] Jul, [facility] [address] [id number] [address] [place] [address], [place] [address] Jul, [facility] [address] [id number] [address] [place] [address], [place] [address] Jun, [facility] [address] [id number] [address] [place] [address], [place] [address] Jun, [facility] [address] [id number] [address] [place] [address], [place] [address] Jun, [facility] [address] [id number] [address] [place] [address], [place] [address] Jun, [facility] [address] [id number] [address] [place] [address], [place] [address] Jun, [facility] [address] [id number] [address] [place] [address], [place] [address] Jun, [facility] [address] [id number] [address] [place] [address], [place] [address] Jun, [facility] [address] [id number] [address] [place] [address], [place] [address] Jun, [facility] [address] [id number] [address] [place] [address], [place] [address] Jun, [facility] [address] [id number] [address] [place] [address], [place] [address] Jun, [facility] [address] [id number] [address] [place] [address], [place] [address] Jun, [facility] [address] [id number] [address] [place] [address], [place] [address] May, [facility] [address] [id number] [address] [place] [address], [place] [address] May, [facility] [address] [id number] [address] [place] [address], [place] [address] May, [facility] [address] [id number] [address] [place] [address], [place] [address] May, [facility] [address] [id number] [address] [place] [address], [place] [address] May, [facility] [address] [id number] [address] [place] [address], [place] [address] May, [facility] [address] [id number] [address] [place] [address], [place] [address] May, [facility] [address] [id number] [address] [place] [address], [place] [address] Apr, [facility] [address] [id number] [address] [place] [address], [place] [address] Apr, [facility] [address] [id number] [address] [place] [address], [place] [address] Apr, [facility] [address] [id number] [address] [place] [address], [place] [address] Apr, [facility] [address] [id number] [address] [place] [address], [place] [address] Apr, [facility] [address] [id number] [address] [place] [address], [place] [address] Apr, [facility] [address] [id number] [address] [place] [address], [place] [address] Mar, [facility] [address] [id number] [address] [place] [address], [place] [address] 29 Mar, 2013 [facility] [address] [id number] [address] [place] [address], [place] [address] 10 Mar, 2013 [facility] [address] [id number] [address] [place] [address], [place] [address] 10 Mar, 2013 [facility] [address] [id number] [address] [place] [address], [place] [address] Mar, 2013 [facility] [address] [id number] [address] [place] [address], [place] [address] Mar, [facility] [address] [id number] [address] [place] [address], [place] [address] Jan, [facility] [address] [id number] [address] [place] [address], [place] [address] Jan, [facility] [address] [id number] [address] [place] [address], [place] [address] Jan, [facility] [address] [id number] [address] [place] [address], [place] [address] Jan, [facility] [address] [id number] [address] [place] [address], [place] [address] Dec, [facility] [address] [id number] [address] [place] [address], [place] [address] Dec, [facility] [address] [id number] [address] [place] [address], [place] [address] Dec, [facility] [address] [id number] [address] [place] [address], [place] [address] Dec, [facility] [address] [id number] [address] [place] [address], [place] [address] Dec, [facility] [address] [id number] [address] [place] [address], [place] [id number] Dec, [facility] [address] [id number] [address] [place] [address], [place] [id number] Dec, [facility] [address] [id number] [address] [place] [address], [place] [address] Dec, [facility] [address] [id number] [address] [place] [address], [place] [address] Dec, [facility] [address] [id number] [address] [place] [address], [place] [id number] Dec, [facility] [address] [id number] [address] [place] [address], [place] [id number] Dec, [facility] [address] [id number] [address] [place] [address], [place] [id number] Dec, [facility] [address] [id number] [address] [place] [address], [place] [id number] October, [facility] [address] [id number] [address] [place] [address], [place] [address] October, [facility] [address] [id number] [address] [place] [address], [place] [address] October, [facility] [address] [id number] [address] [place] [address], [place] [address] October, [facility] [address] [id number] [address] [place] [address], [place] [address] October, [facility] [address] [id number] [address] [place] [address], [place] [address] October, [facility] [address] [id number] [address] [place] [address], [place] [id number] Oct, [facility] [address] [id number] [address] [place] [address], [place] [id number] Oct, [facility] [address] [id number] [address] [place] [address], [place] [id number] Oct, [facility] [address] [id number] [address] [place] [address], [place] [id number] Oct, [facility] [address] [id number] [address] [place] [address], [place] [id number] Oct, [facility] [address] [id number] [address] [place] [address], [place] [address] Oct, [facility] [address] [id number] [address] [place] [address], [place] [address] Oct, [facility] [address] [id number] [address] [place] [address], [place] [id number] Oct, [facility] [address] [id number] [address] [place] [address], [place] [id number] Oct, [facility] [address] [id number] [address] [place] [id number] 09 Oct, 2013 [facility] [address] [id number] [address] [place] [address] Oct, [facility] [address] [id number] [address] [place] [address], [place] [id number] Oct, [facility] [facility] [address] [id number] [address] [place] [address], [place] [address] Aug, [facility] [address] [id number] [address] [place] [address], [place] [address] Aug, [facility] [address] [id number] [address] [place] [address], [place] [address] Aug, [facility] [address] [id number] [address] [place] [address], [place] [address] Aug, [facility] [address] [id number] [address] [place] [address], [place] [address] Aug, [facility] [address] [id number] [address] [place] [address], [place] [address] 05 Aug, 2013 [facility] [address] [id number] [address] [place] [address], [place] [address] Aug, [facility] [address] [id number] [address] [place] [address], [place] [address] Aug, [facility] [address] [id number] [address] [place] [address], [place] [address] Aug, [facility] [address] [id number] [address] [place] [address], [place] [address] Aug, [facility] [address] [id number] [address] [place] [address], [place] [address] Aug, [facility] [address] [id number] [address] [place] [address], [place] [address] Aug, [facility] [address] [id number] [address] [place] [address], [place] [address] Aug, [facility] [address] [id number] [address] [place] [address], [place] [address] 20 Aug, 2013 [facility] [address] [id number] [address] [place] [address], [place] [address] 14 Aug, 2013 [facility] [address] [id number] [address] [place] [address], [place] [address] 14 Aug, 2013 [facility] [address] [id number] [address] [place] [address], [place] [address] 14 Aug, 2013 [facility] [address] [id number] [address] [place] [address], [place] [address] 14 Aug, 2013 [facility] [address] [id number] [address] [place] [address], [place] [address] 07 Aug, 2013 [facility] [address] [id number] [address] [place] [address], [place] [address] 07 Aug, 2013 [facility] [address] [id number] [address] [place] [address], [place] [address] 06 Aug, 2013 [facility] [address] [id number] [address] [place] [address], [place] [address] 06 Aug, 2013 [facility] [address] [id number] [address] [place] [address], [place] [address] 04 Aug, 2013 [facility] [address] [id number] [address] [place] [address], [place] [address] 04 Aug, 2013 [facility] [address] [id number] [address] [place] [address], [place] [address] Aug, [facility] [address] [id number] [address] [place] [address], [place] [address] Jul, [facility] [address] [id number] [address] [place] [address], [place] [address] Jul, [facility] [address] [id number] [address] [place] [address], [place] [address] Jul, [facility] [address] [id number] [address] [place] [address], [place] [address] Jul, [facility] [address] [id number] [address] [place] [address], [place] [address] Jul, [facility] [address] [id number] [address] [place] [address], [place] [address] Jul, [facility] [address] [id number] [address] [place] [address], [place] [address] Jul, [facility] [address] [id number] [address] [place] [address], [place] [address] Jul, [facility] [address] [id number] [address] [place] [address], [place] [address] Jul, [facility] [address] [id number] [address] [place] [address], [place] [address] Jul, [facility] [address] [id number] [address] [place] [address], [place] [address] Jul, [facility] [address] [id number] [address] [place] [address], [place] [address] Jul, [facility] [address] [id number] [address] [place] [address], [place] [address] Jul, [facility] [address] [id number] [address] [place] [address], [place] [address] Jul, [facility] [address] [id number] [address] [place] [address], [place] [address] Jul, [facility] [address] [id number] [address] [place] [address], [place] [address] Jul, [facility] [address] [id number] [address] [place] [address], [place] [address] Jul, [facility] [address] [id number] [address] [place] [address], [place] [address] Jul, [facility] [address] [id number] [address] [place] [address], [place] [address] Jul, [facility] [address] [id number] [address] [place] [address], [place] [address] Jul, [facility] [address] [id number] [address] [place] [address], [place] [address] Jun, [facility] [address] [id number] [address] [place] [address], [place] [address] Jun, [facility] [address] [id number] [address] [place] [address], [place] [address] Jun, [facility] [address] [id number] [address] [place] [address], [place] [address] Jun, [facility] [address] [id number] [address] [place] [address], [place] [address] Jun, [facility] [address] [id number] [address] [place] [address], [place] [address] Jun, [facility] [address] [id number] [address] [place] [address], [place] [address] Jun, [facility] [address] [id number] [address] [place] [address], [place] [address] Jun, [facility] [address] [id number] [address] [place] [address], [place] [address] Jun, [facility] [address] [id number] [address] [place] [address], [place] [address] Jun, [facility] [address] [id number] [address] [place] [address], [place] [address] Jun, [facility] [address] [id number] [address] [place] [address], [place] [address] Jun, [facility] [address] [id number] [address] [place] [address], [place] [address] Jun, [facility] [address] [id number] [address] [place] [address], [place] [address] Jun, [facility] [address] [id number] [address] [place] [address], [place] [address] 20 Jun, 2013 [facility] [address] [id number] [address] [place] [address], [place] [address] 18 Jun, 2013 [facility] [address] [id number] [address] [place] [address], [place] [address] 18 Jun, 2013 [facility] [address] [id number] [address] [place] [address], [place] [address] 17 Jun, 2013 [facility] [address] [id number] [address] [place] [address], [place] [address] 17 Jun, 2013 [facility] [address] [id number] [address] [place] [address], [place] [address] 13 Jun, 2013 [facility] [address] [id number] [address] [place] [address], [place] [address] 12 Jun, 2013 [facility] [address] [id number] [address] [place] [address], [place] [address] 12 Jun, 2013 [facility] [address] [id number] [address] [place] [address], [place] [address] 09 Jun, 2013 [facility] [address] [id number] [address] [place] [address], [place] [address] 05 Jun, 2013 [facility] [address] [id number] [address] [place] [address], [place] [address] 05 Jun, 2013 [facility] [address] [id number] [address] [place] [address], [place] [address] 04 Jun, 2013 [facility] [address] [id number] [address] [place] [address], [place] [address] 04 Jun, 2013 [facility] [address] [id number] [address] [place] [address], [place] [address] 17 May, 2013 [facility] [address] [id number] [address] [place] [address], [place] [address] 17 May, 2013 [facility] [address] [id number] [address] [place] [address], [place] [address] May, [facility] [address] [id number] [address] [place] [address], [place] [address] May, [facility] [address] [id number] [address] [place] [address], [place] [address] May, [facility] [address] [id number] [address] [place] [address], [place] [address] May, [facility] [address] [id number] [address] [place] [address], [place] [address] Apr, [facility] [address] [id number] [address] [place] [address], [place] [address] Apr, [facility] [address] [id number] [address] [place] [address], [place] [address] Apr, [facility] [address] [id number] [address] [place] [address], [place] [address] Apr, [facility] [address] [id number] [address] [place] [address], [place] [address] Apr, [facility] [address] [id number] [address] [place] [address], [place] [address] Apr, [facility] [address] [id number] [address] [place] [address], [place] [address] Apr, [facility] [address] [id number] [address] [place] [address], [place] [address] Apr, [facility] [address] [id number] [address] [place] [address], [place] [address] 26 Mar, 2013 [facility] [address] [id number] [address] [place] [address], [place] [address] 24 Sep2012 [facility] [address] [id number] [address] [place] [address], [place] [address] 17 Mar, 2013 [facility] [address] [id number] [address] [place] [address], [place] [address] 17 Mar, 2013 [facility] [address] [id number] [address] [place] [address] [place] [address] 11 Mar, 2013 [facility] [address] [id number] [address] [place] [address], [place] [address] 10 Mar, 2013 [facility] [address] [id number] [address] [place] [address], [place] [address] 05 Mar, 2013 [facility] [address] [id number] [address] [place] [address], [place] [address] 04 Mar, 2013 [facility] [address] [id number] [address] [place] [address], [place] [address] 20 Jan, 2013 [facility] [address] [id number] [address] [place] [address], [place] [address] Jan, [facility] [address] [id number] [address] [place] [address], [place] [address] 14 Jan, 2013 [facility] [address] [id number] [address] [place] [address], [place] [address] Jan, [facility] [address] [id number] [address] [place] [address], [place] [address] Jan, [facility] [address] [id number] [address] [place] [address], [place] [address] Jan, [facility] [address] [id number] [address] [place] [address], [place] [address] Dec, [facility] [address] [id number] [address] [place] [address], [place] [address] Dec, [facility] [address] [id number] [address] [place] [address], [place] [address] Dec, [facility] [address] [id number] [address] [place] [address], [place] [address] Dec, [facility] [address] [id number] [address] [place] [address], [place] [address] Dec, [facility] [address] [id number] [address] [place] [address], [place] [address] 17 Dec, 2012 [facility] [address] [id number] [address] [place] [address], [place] [address] 16 Dec, 2012 [facility] [address] [id number] [address] [place] [address], [place] [address] 16 Dec, 2012 [facility] [address] [id number] [address] [place] [address], [place] [address] 15 Dec, 2012 [facility] [address] [id number] [address] [place] [address], [place] [address] 10 Dec, 2012 [facility] [address] [id number] [address] [place] [address], [place] [address] 28 Dec, 2012 [facility] [address] [id number] [address] [place] [address], [place] [address] Dec, [facility] [address] [id number] [address] [place] [address], [place] [address] Dec, [facility] [address] [id number] [address] [place] [address], [place] [address] Dec, [facility] [address] [id number] [address] [place] [address], [place] [address] Dec, [facility] [address] [id number] [address] [place] [address], [place] [address] Dec, [facility] [address] [id number] [address] [place] [address], [place] [address] October, [facility] [address] [id number] [address] [place] [address], [place] [address] October, [facility] [address] [id number] [address] [place] [address], [place] [address] October, [facility] [address] [id number] [address] [place] [address], [place] [address] October, [facility] [address] [id number] [address] [place] [address], [place] [address] October, [facility] [address] [id number] [address] [place] [address], [place] [address] October, [facility] [address] [id number] [address] [place] [address], [place] [address] October, [facility] [address] [id number] [address] [place] [address], [place] [address] Oct, [facility] [address] [id number] [address] [place] [address], [place] [address] Oct, [facility] [address] [id number] [address] [place] [address], [place] [address] Oct, [facility] [address] [id number] [address] [place] [address], [place] [address] Oct, [facility] [address] [id number] [address] [place] [address], [place] [address] Oct, [facility] [address] [id number] [address] [place] [address], [place] [address] Oct, [facility] [address] [id number] [address] [place] [address], [place] [address] Oct, [facility] [address] [id number] [address] [place] [address], [place] [address] 15 Oct, 2012 [facility] [address] [id number] [address] [place] [address], [place] [address] Oct, [facility] [address] [id number] [address] [place] [address], [place] [address] Oct, [facility] [address] [id number] [address] [place] [address], [place] [address] Oct, [facility] [address] [id number] [address] [place] [address], [place] [address] Oct, [facility] [address] [id number] [address] [place] [address], [place] [address] Aug, [facility] [address] [id number] [address] [place] [address], [place] [address] Aug, [facility] [address] [id number] [address] [place] [address], [place] [address] 12 Aug, 2012 [facility] [address] [id number] [address] [place] [address], [place] [address] 06 Aug, 2012 [facility] [address] [id number] [address] [place] [address], [place] [address] 05 Aug, 2012 [facility] [address] [id number] [address] [place] [address], [place] [address] 05 Aug, 2012 [facility] [address] [id number] [address] [place] [address], [place] [address] 20 Aug, 2012 [facility] [address] [id number] [address] [place] [address], [place] [address] 14 Aug, 2012 [facility] [address] [id number] [address] [place] [address], [place] [address] 12 Aug, 2012 [facility] [address] [id number] [address] [place] [address], [place] [address] Aug, [facility] [address] [id number] [address] [place] [address], [place] [address] Jul, [facility] [address] [id number] [address] [place] [address], [place] [address] Jul, [facility] [address] [id number] [address] [place] [address], [place] [address] Jul, [facility] [address] [id number] [address] [place] [address], [place] [address] Jun, [facility] [address] [id number] [address] [place] [address], [place] [address] Jun, [facility] [address] [id number] [address] [place] [address], [place] [address] Jun, [facility] [address] [id number] [address] [place] [address], [place] [address] Jun, [facility] [address] [id number] [address] [place] [address], [place] [address] Jun, [facility] [address] [id number] [address] [place] [address], [place] [address] 14 Jun, 2012 [facility] [address] [id number] [address] [place] [address], [place] [address] 14 Jun, 2012 [facility] [address] [id number] [address] [place] [address], [place] [address] 13 Jun, 2012 [facility] [address] [id number] [address] [place] [address], [place] [address] 13 Jun, 2012 [facility] [address] [id number] [address] [place] [address], [place] [id number] 11 Jun, 2012 [facility] [address] [id number] [address] [place] [address], [place] [address] 11 Jun, 2012 [facility] [address] [id number] [address] [place] [address], [place] [address] 11 Jun, 2012 [facility] [address] [id number] [address] [place] [address], [place] [address] 11 Jun, 2012 [facility] [address] [id number] [address] [place] [address], [place] [address] 07 Jun, 2012 [facility] [address] [id number] [address] [place] [address], [place] [address] 07 Jun, 2012 [facility] [address] [id number] [address] [place] [address], [place] [address] 06 Jun, 2012 [facility] [address] [id number] [address] [place] [address], [place] [address] 06 Jun, 2012 [facility] [address] [id number] [address] [place] [address], [place] [address] Jun, [facility] [address] [id number] [address] [place] [address], [place] [address] 06 Jun, 2012 [facility] [address] [id number] [address] [place] [address], [place] [address] 05 Jun, 2012 [facility] [address] [id number] [address] [place] [address], [place] [address] Jun, [facility] [address] [id number] [address] [place] [address], [place] [id number] Jun, [facility] [address] [id number] [address] [place] [address], [place] [address] Jun, [facility] [address] [id number] [address] [place] [address], [place] [address] May, [facility] [address] [id number] [address] [place] [address], [place] [address] May, [facility] [address] [id number] [address] [place] [address], [place] [address] May, [facility] [address] [id number] [address] [place] [address], [place] [address] May, [facility] [address] [id number] [address] [place] [address], [place] [address] May, [facility] [address] [id number] [address] [place] [address], [place] [address] May, [facility] [address] [id number] [address] [place] [address], [place] [address] May, [facility] [address] [id number] [address] [place] [address], [place] [address] May, [facility] [address] [id number] [address] [place] [address], [place] [address] Apr, [facility] [address] [id number] [address] [place] [id number] Apr, [facility] [address] [id number] [address] [place] [address], [place] [address] Apr, [facility] [address] [id number] [address] [place] [address], [place] [address] Apr, [facility] [address] [id number] [address] [place] [id number] Apr, [facility] [address] [id number] [address] [place] [address], [place] [address] Apr, [facility] [address] [id number] [address] [place] [address], [place] [address] Apr, [facility] [address] [id number] [address] [place] [address], [place] [address] Apr, [facility] [address] [id number] [address] [place] [address], [place] [address] Apr, [facility] [address] [id number] [address] [place] [address], [place] [address] Apr, [facility] [address] [id number] [address] [place] [address], [place] [address] Apr, [facility] [address] [id number] [address] [place] [address], [place] [address] Apr, [facility] [address] [id number] [address] [place] [address], [place] [address] Mar, [facility] [address] [id number] [address] [place] [address], [place] [address] 18 Mar, 2012 [facility] [address] [id number] [address] [place] [id number] Mar, [facility] [address] [id number] [address] [place] [id number] Mar, [facility] [address] [id number] [address] [place] [id number] Mar, [facility] [address] [id number] [address] [place] [id number] Mar, [facility] [address] [id number] [address] [place] [address], [place] [address] Mar, [facility] [address] [id number] [address] [place] [address], [place] [address] Jan, [facility] [address] [id number] [address] [place] [id number] Jan, [facility] [address] [id number] [facility] [id number] Jan, [facility] [address] [id number] [facility] [id number] Jan, [facility] [address] [id number] [address] [place] [address], [place] [address] Jan, [facility] [address] [id number] [address] [place] [address], [place] [address] Jan, [facility] [address] [id number] [address] [place] [address], [place] [address] Jan, [facility] [address] [id number] [address] [place] [address], [place] [address] Jan, [facility] [facility] [address] [id number] [address] [place] [address], [place] [address] Jan, [facility] [address] [id number] [address] [place] [address], [place] [address] Jan, [facility] [address] [id number] [address] [place] [address], [place] [address] Jan, [facility] [address] [id number] [address] [place] [address], [place] [address] Dec, [facility] [address] [id number] [address] [place] [address], [place] [address] Dec, [facility] [address] [id number] [address] [place] [address], [place] [address] Dec, [facility] [address] [id number] [address] [place] [address], [place] [address] Dec, [facility] [address] [id number] [address] [place] [address], [place] [address] Dec, [facility] [address] [id number] [address] [place] [address], [place] [address] Dec, [facility] [address] [id number] [address] [place] [address] [place] [address] 18 Jan, 2012 [facility] [address] [id number] [address] [place] [address], [place] [address] 17 Jan, 2012 [facility] [address] [id number] [address] [place] [address], [place] [address] 16 Jan, 2012 [facility] [address] [id number] [address] [place] [address], [place] [address] 13 Jan, 2012 [facility] [address] [id number] [address] [place] [address], [place] [address] 13 Jan, 2012 [facility] [address] [id number] [address] [place] [address], [place] [address] 02 Jan, 2012 [facility] [address] [id number] [address] [place] [address], [place] [address] Dec, [facility] [address] [id number] [address] [place] [address], [place] [address] Dec, [facility] [address] [id number] [address] [place] [address], [place] [address] Dec, [facility] [address] [id number] [address] [place] [address], [place] [address] Dec, [facility] [address] [id number] [address] [place] [address], [place] [address] 15 Dec, 2011 [facility] [address] [id number] [address] [place] [address], [place] [address] Dec, [facility] [address] [id number] [address] [place] [address], [place] [address] Dec, [facility] [address] [id number] [address] [place] [address], [place] [address] October, [facility] [address] [id number] [address] [place] [address], [place] [address] October, [facility] [address] [id number] [address] [place] [address], [place] [address] October, [facility] [address] [id number] [address] [place] [address], [place] [address] October, [facility] [address] [id number] [address] [place] [address], [place] [address] October, [facility] [address] [id number] [address] [place] [address], [place] [address] October, [facility] [address] [id number] [address] [place] [address], [place] [address] Oct, [facility] [address] [id number] [address] [place] [address], [place] [address] 24 Oct, 2011 [facility] [address] [id number] [address] [place] [address], [place] [address] Oct, [facility] [address] [id number] [address] [place] [address], [place] [address] Oct, [facility] [address] [id number] [address] [place] [address], [place] [address] Oct, [facility] [address] [id number] [address] [place] [address], [place] [address] Oct, [facility] [address] [id number] [address] [place] [address], [place] [address] Oct, [facility] [address] [id number] [address] [place] [address], [place] [address] Aug, [facility] [address] [id number] [address] [place] [address], [place] [address] 29 Sep, 2011 [facility] [address] [id number] [address] [place] [address], [place] [address] 19 Sep, 2011 [facility] [address] [id number] [address] [place] [address], [place] [address] 13 Sep, 2011 [facility] [address] [id number] [address] [place] [address], [place] [address] 05 Sep, 2011 [facility] [address] [id number] [address] [place] [address], [place] [address] Aug, [facility] [address] [id number] [address] [place] [address], [place] [address] Aug, [facility] [address] [id number] [address] [place] [address], [place] [address] Aug, [facility] [address] [id number] [address] [place] [address], [place] [address] Aug, [facility] [address] [id number] [address] [place] [address], [place] [address] Jul, [facility] [address] [id number] [address] [place] [address], [place] [address] Jul, [facility] [address] [id number] [address] [place] [address], [place] [address] Jul, [facility] [address] [id number] [address] [place] [address], [place] [address] Jul, [facility] [address] [id number] [address] [place] [address], [place] [address] Jun, [facility] [address] [id number] [address] [place] [address], [place] [address] Jun, [facility] [address] [id number] [address] [place] [address], [place] [address] May, [facility] [address] [id number] [address] [place] [address], [place] [address] May, [facility] [address] [id number] [address] [place] [address], [place] [address] May, [facility] [address] [id number] [address] [place] [address], [place] [address] May, [facility] [address] [id number] [address] [place] [address], [place] [address] 07 May, 2011 [facility] [address] [id number] [address] [place] [address], [place] [address] Apr, [facility] [address] [id number] [address] [place] [address] Apr, [facility] [address] [id number] [address] [place] [address] Apr, [facility] [address] [id number] [address] [place] [address] Jan, [facility] [address] [id number] [address] [place] [address] Dec, [facility] [address] [id number] [address] [place] [address] October, [facility] [address] [id number] [address] [place] [address] Jun, [facility] [address] [id number] [address] [place] [address] Apr, [facility] [address] [id number] [address] [place] [address] Apr, [facility] [address] [id number] [address] [place] [address] Apr, [facility] [address] [id number] [address] [place] [address] Jun, IMMUNIZATIONS No Known Immunizations SOCIAL HISTORY Never Assessed REASON FOR VISIT [facility] [place] PLAN OF CARE VITAL SIGNS MEDICATIONS Unknown Medications RESULTS No Results PROCEDURES No Known procedures INSTRUCTIONS MEDICATIONS ADMINISTERED No Known Medications MEDICAL (GENERAL) HISTORY Type Description Date Medical History Psychiatric disorder Medical History Hard of hearing Surgical History Neofibrous tumor Surgical History back injection Hospitalization History Intestinal blockage Hospitalization History past psychiatric hospitalizations x2
--- OUTSIDE RECORDS SUMMARY | 2020-01-25 12:52 | XMS REPORT ---
Author Author Ana Mayer Doctor Organization [facility] Address Unknown Phone Unavailable Care Team Providers Care Office Clerk Assistant Name Role Phone Migration, Doctor Unavailable Unavailable PROBLEMS Type Condition ICD9-CM Code BBI43-BL Code Onset Dates Condition S tatus SNOMED Code Problem Attention deficit R41.840 Active 76 102686 Problem Chronic hepatitis C without hepatic coma B18.2 Active 368385614 Problem Cannabis abuse F12.10 Active 21827 009 Problem Bipolar disorder, in partial remission, most rec ent episode hypomanic F31.71 Active 996896254 Problem Attention deficit hyperactivity disorder (ADHD), combi luciano type F90.2 Active 86252917 Problem Bipolar 1 disorder F31.9 Active 3 11705323 Problem H/O laminectomy Z98.89 Active 1616 23786 Problem Other chronic pain G89.29 Active 8 9174476 Problem Anxiety disorder, unspecified type F41.9 Active [id number] ALLERGIES No Information ENCOUNTERS Encounter Location Date Diagnosis [facility] [id number] [place] [id number] October, [facility] [address] [id number] [place] [address] October, [facility] [address] [id number] [place] [address] Aug, Bipolar disorder, in partial remission, most recent episode hypomanic F31.71 ; Attention deficit hyperactivity disorder (ADHD), combined type F90.2 and Anxiety disorder, unspecified type F41.9 [facility] [address] [facility] [id number] [place] [id number] Aug, [facility] [address] [id number] [place] [address] Aug, Bipolar disorder, in partial remission, most recent episode hypomanic F31.71 [facility] [address] [id number] [address] [place] [address] Aug, [facility] [address] [id number] [address] [place] [address] Aug, Bipolar disorder, in partial remission, most recent episode hypomanic F31.71 [facility] [address] [id number] [address] [place] [address] Aug, Bipolar disorder, in partial remission, most recent episode hypomanic F31.71 ; Attention deficit hyperactivity disorder (ADHD), combined type F90.2 and Anxiety disorder, unspecified type F41.9 [facility] [address] [id number] [address] [place] [address] Aug, Low back pain M54.5 and Pain in left wrist M25.532 [facility] [address] [id number] [address] [place] [address] Aug, [facility] [address] [id number] [address] [place] [id number] Jun, [facility] [address] [id number] [address] [place] [address] Apr, Bipolar disorder, in partial remission, most recent episode hypomanic F31.71 [facility] [address] [id number] [address] [place] [address] Apr, [facility] [address] [id number] [address] [place] [address] Apr, Bipolar disorder, in partial remission, most recent episode hypomanic F31.71 ; Attention deficit hyperactivity disorder (ADHD), combined type F90.2 ; Anxiety disorder, unspecified type F41.9 and 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 [facility] [address] [id number] [address] [place] [phone] Apr, Bipolar disorder, in partial remission, most recent episode hypomanic F31.71 [facility] [address] [id number] [address] [place] [address] Apr, Bipolar disorder, in partial remission, most recent episode hypomanic F31.71 [facility] [address] [id number] [address] [place] [id number] Mar, [facility] [address] [id number] [address] [place] [address] Mar, Bipolar disorder, in partial remission, most recent episode hypomanic F31.71 ; Encounter for immunization Z23 and Low back pain M54.5 [facility] [address] [id number] [address] [place] [address] Mar, Bipolar disorder, in partial remission, most recent episode hypomanic F31.71 [facility] [address] [id number] [address] [place] [address] Mar, Bipolar disorder, in partial remission, most recent episode hypomanic F31.71 [facility] [address] [id number] [address] [place] [address] Jan, Bipolar disorder, in partial remission, most recent episode hypomanic F31.71 [facility] [address] [id number] [address] [place] [id number] Jan, Bipolar disorder, in partial remission, most recent episode hypomanic F31.71 [facility] [address] [id number] [address] [place] [address] Dec, Bipolar disorder, in partial remission, most recent episode hypomanic F31.71 [facility] [address] [id number] [address] [place] [address] Dec, Bipolar disorder, in partial remission, most recent episode hypomanic F31.71 ; Attention deficit hyperactivity disorder (ADHD), combined type F90.2 ; Anxiety disorder, unspecified type F41.9 and 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 [facility] [address] [id number] [address] [place] [address] Dec, Bipolar disorder, in partial remission, most recent episode hypomanic F31.71 [facility] [address] [id number] [place] [address] Dec, Bipolar disorder, in partial remission, most recent episode hypomanic F31.71 [facility] [address] [facility] [id number] [place] [address] October, Bipolar disorder, in partial remission, most recent episode hypomanic F31.71 [facility] [address] [id number] [place] [address] October, [facility] [address] [id number] [place] [phone] October, [facility] [address] [id number] [place] [phone] Oct, Bipolar disorder, in partial remission, most recent episode hypomanic F31.71 ; Attention deficit hyperactivity disorder (ADHD), combined type F90.2 ; Anxiety disorder, unspecified type F41.9 and Encounter for drug screening Z02.83 [facility] [address] [id number] [place] [id number] Oct, Bipolar disorder, in partial remission, most recent episode hypomanic F31.71 [facility] [address] [facility] [id number] [place] [address] Oct, Bipolar disorder, in partial remission, most recent episode hypomanic F31.71 [facility] [address] [id number] [place] [address] Aug, Bipolar disorder, in partial remission, most recent episode hypomanic F31.71 [facility] [address] [facility] [id number] [place] [phone] Aug, Bipolar disorder, in partial remission, most recent episode hypomanic F31.71 [facility] [address] [facility] [id number] [place] [phone] Aug, Bipolar disorder, in partial remission, most recent episode hypomanic F31.71 [facility] [address] [id number] [place] [id number] Jul, Bipolar disorder, in partial remission, most recent episode hypomanic F31.71 ; Attention deficit hyperactivity disorder (ADHD), combined type F90.2 and Anxiety disorder, unspecified type F41.9 [facility] [address] [id number] [address] [place] [phone] Jul, Bipolar disorder, in partial remission, most recent episode hypomanic F31.71 [facility] [address] [id number] [address] [place] [phone] Jun, Bipolar disorder, in partial remission, most recent episode hypomanic F31.71 [facility] [address] [id number] [address] [place] [address] May, Bipolar disorder, in partial remission, most recent episode hypomanic F31.71 [facility] [address] [id number] [place] [phone] May, Bipolar disorder, in partial remission, most recent episode hypomanic F31.71 [facility] [address] [id number] [place] [id number] Apr, [facility] [address] [id number] [place] [id number] Apr, Bipolar disorder, in partial remission, most recent episode hypomanic F31.71 ; Attention deficit hyperactivity disorder (ADHD), combined type F90.2 ; Anxiety disorder, unspecified type F41.9 and Cannabis abuse F12.10 [facility] [address] [id number] [address] [place] [phone] Apr, Attention deficit hyperactiv ity disorder (ADHD), combined type F90.2 [facility] [address] [id number] [address] [place] [id number] Mar, Attention deficit hyperactiv ity disorder (ADHD), combined type F90.2 [facility] [address] [id number] [place] [phone] 14 Mar, 2017 Anxiety disorder, unspecifie d type F41.9 [place] [id number] [facility] [id number] [place] [phone] Jan, Attention deficit hyperactiv ity disorder (ADHD), combined type F90.2 [facility] [address] [id number] [place] [phone] Jan, Anxiety disorder, unspecifie d type F41.9 [facility] [address] [id number] [place] [phone] Jan, Other chronic pain G89.29 ; Chronic hepatitis C without hepatic coma B18.2 and Bipolar 1 disorder F31.9 [facility] [address] [id number] [place] [phone] Dec, Attention deficit hyperactiv ity disorder (ADHD), combined type F90.2 [facility] [address] [id number] [place] [phone] Dec, Bipolar disorder, in partial remission, most recent episode hypomanic F31.71 ; Attention deficit hyperactivity disorder (ADHD), combined type F90.2 and Anxiety disorder, unspecified type F41.9 [facility] [address] [id number] [place] [phone] Dec, Bipolar disorder, in partial remission, most recent episode hypomanic F31.71 ; Attention deficit hyperactivity disorder (ADHD), combined type F90.2 and Anxiety disorder, unspecified type F41.9 [facility] [address] [id number] [place] [phone] Dec, Bipolar 1 disorder F31.9 and Attention deficit R41.840 [facility] [address] [id number] [place] [phone] Oct, Other chronic pain G89.29 ; Alopecia L65.9 and Screening, lipid Z13.220 [facility] [address] [id number] [place] [phone] Oct, [facility] [address] [place] [id number] [address] [place] [phone] Aug, [facility] [address] [id number] [address] [place] [address] Aug, Eustachian tube dysfunction, right H69.81 ; Vertigo R42 and Other chronic pain G89.29 [facility] [address] [id number] [address] [place] [phone] Aug, [facility] [address] [id number] [address] [place] [phone] Jun, [facility] [address] [id number] [address] [place] [id number] Jun, Low back pain M54.5 and Othe r chronic pain G89.29 [facility] [address] [id number] [address] [place] [id number] Jun, [facility] [address] [id number] [address] [place] [id number] May, [facility] [address] [id number] [address] [place] [phone] Jan, [facility] [address] [id number] [address] [place] [phone] Dec, [facility] [address] [id number] [address] [place] [phone] Dec, [facility] [address] [id number] [address] [place] [id number] Jun, [facility] [address] [id number] [address] [place] [phone] Apr, Eustachian tube dysfunction, unspecified laterality H69.80 ; Hot flashes N95.1 and Encounter for immunization Z23 [facility] [address] [id number] [address] [place] [phone] Jan, [facility] [address] [id number] [address] [place] [id number] Jan, [facility] [address] [id number] [address] [place] [phone] Jan, [facility] [address] [id number] [address] [place] [phone] Jan, [facility] [address] [id number] [address] [place] [phone] Jan, Encounter to establish care V65.8 ; Bipolar 1 disorder 296.7 ; Abdominal pain 789.00 ; Constipation 564.00 ; Hard of hearing 389.9 and Drug abuse 305.90 [facility] [address] [id number] [address] [place] [id number] Dec, [facility] [address] [id number] [address] [place] [phone] October, [facility] [address] [id number] [address] [place] [id number] October, [facility] [address] [id number] [address] [place] [phone] Oct, [facility] [address] [id number] [address] [place] [phone] Oct, [facility] [address] [id number] [address] [place] [phone] Oct, [facility] [address] [id number] [address] [place] [phone] Aug, [facility] [address] [id number] [address] [place] [phone] Aug, [facility] [address] [id number] [address] [place] [id number] Aug, [facility] [address] [id number] [address] [place] [phone] Aug, [facility] [address] [id number] [address] [place] [phone] Aug, [facility] [address] [id number] [address] [place] [address], [place] [address] Aug, 2014 [facility] [address] [id number] [address] [place] [address], [place] [address] Aug, 2014 [facility] [address] [id number] [address] [place] [address], [place] [address] Aug, 2014 [facility] [address] [id number] [address] [place] [address], [place] [address] Aug, 2014 [facility] [address] [id number] [address] [place] [address], [place] [address] Aug, 2014 [facility] [address] [id number] [address] [place] [address], [place] [address] Aug, 2014 [facility] [address] [id number] [address] [place] [address], [place] [address] Aug, 2014 [facility] [address] [id number] [address] [place] [address], [place] [address] Aug, 2014 [facility] [address] [id number] [address] [place] [address], [place] [address] Aug, 2014 [facility] [address] [id number] [address] [place] [address], [place] [address] Aug, [facility] [address] [id number] [address] [place] [address], [place] [address] Jul, [facility] [address] [id number] [address] [place] [address], [place] [address] Jul, [facility] [address] [id number] [address] [place] [address], [place] [address] Jul, [facility] [address] [id number] [address] [place] [address], [place] [address] Jul, [facility] [address] [id number] [address] [place] [address], [place] [address] Jul, [facility] [address] [id number] [address] [place] [address], [place] [address] Jul, [facility] [address] [id number] [address] [place] [address], [place] [address] Jul, [facility] [address] [id number] [address] [place] [address], [place] [address] Jul, [facility] [address] [id number] [address] [place] [address], [place] [address] Jun, [facility] [address] [id number] [address] [place] [address], [place] [address] Jun, [facility] [address] [id number] [address] [place] [address], [place] [address] Jun, [facility] [address] [id number] [address] [place] [address], [place] [address] Jun, [facility] [address] [id number] [address] [place] [address], [place] [address] Jun, [facility] [address] [id number] [address] [place] [address], [place] [address] Jun, [facility] [address] [id number] [address] [place] [address], [place] [address] Jun, [facility] [address] [id number] [address] [place] [address], [place] [address] Jun, [facility] [address] [id number] [address] [place] [address], [place] [address] Jun, [facility] [address] [id number] [address] [place] [address], [place] [address] Jun, [facility] [address] [id number] [address] [place] [address], [place] [address] Jun, [facility] [address] [id number] [address] [place] [address], [place] [address] May, [facility] [address] [id number] [address] [place] [address], [place] [address] May, [facility] [address] [id number] [address] [place] [address], [place] [address] May, [facility] [address] [id number] [address] [place] [address], [place] [address] May, [facility] [address] [id number] [address] [place] [address], [place] [address] May, [facility] [address] [id number] [address] [place] [address], [place] [address] May, [facility] [address] [id number] [address] [place] [address], [place] [address] May, [facility] [address] [id number] [address] [place] [address], [place] [address] Apr, [facility] [address] [id number] [address] [place] [address], [place] [address] Apr, [facility] [address] [id number] [address] [place] [address], [place] [address] Apr, [facility] [address] [id number] [address] [place] [address], [place] [address] Apr, [facility] [address] [id number] [address] [place] [address], [place] [address] Apr, [facility] [address] [id number] [address] [place] [address], [place] [address] Apr, [facility] [address] [id number] [address] [place] [address], [place] [address] 29 Mar, 2014 [facility] [address] [id number] [address] [place] [address], [place] [address] 29 Mar, 2013 [facility] [address] [id number] [address] [place] [address], [place] [address] 10 Mar, 2014 [facility] [address] [id number] [address] [place] [address], [place] [address] Mar, 2013 [facility] [address] [id number] [address] [place] [address], [place] [address] Mar, [facility] [address] [id number] [address] [place] [address], [place] [address] Mar, [facility] [address] [id number] [address] [place] [address], [place] [address] Jan, [facility] [address] [id number] [address] [place] [address], [place] [address] Jan, [facility] [address] [id number] [address] [place] [address], [place] [address] Jan, [facility] [address] [id number] [address] [place] [address], [place] [address] Jan, [facility] [address] [id number] [address] [place] [address], [place] [address] Dec, [facility] [address] [id number] [address] [place] [address], [place] [address] Dec, [facility] [address] [id number] [address] [place] [address], [place] [address] Dec, [facility] [address] [id number] [address] [place] [address], [place] [address] Dec, [facility] [address] [id number] [address] [place] [address], [place] [address] Dec, [facility] [address] [id number] [address] [place] [address], [place] [address] Dec, [facility] [address] [id number] [address] [place] [address], [place] [address] Dec, [facility] [address] [id number] [address] [place] [address], [place] [address] Dec, [facility] [address] [id number] [address] [place] [address], [place] [address] Dec, [facility] [address] [id number] [address] [place] [address], [place] [address] Dec, [facility] [address] [id number] [address] [place] [address], [place] [address] Dec, [facility] [address] [id number] [address] [place] [address], [place] [address] Dec, [facility] [address] [id number] [address] [place] [address], [place] [address] October, [facility] [address] [id number] [address] [place] [address], [place] [address] October, [facility] [address] [id number] [address] [place] [address], [place] [address] October, [facility] [address] [id number] [address] [place] [address], [place] [address] October, [facility] [address] [id number] [address] [place] [address], [place] [address] October, [facility] [address] [id number] [address] [place] [address], [place] [address] October, [facility] [address] [id number] [address] [place] [address], [place] [address] Oct, [facility] [address] [id number] [address] [place] [address], [place] [address] Oct, [facility] [address] [id number] [address] [place] [address], [place] [address] Oct, [facility] [address] [id number] [address] [place] [address], [place] [address] Oct, [facility] [address] [id number] [address] [place] [address], [place] [address] Oct, [facility] [address] [id number] [address] [place] [address], [place] [address] Oct, [facility] [address] [id number] [address] [place] [address], [place] [address] Oct, [facility] [address] [id number] [address] [place] [address], [place] [address] Oct, [facility] [address] [id number] [facility] [place] [address] Oct, [facility] [address] [id number] [facility] [place] [address] Oct, [facility] [address] [id number] [address] [place] [address], [place] [address] Oct, [facility] [address] [id number] [address] [place] [address], [place] [address] Oct, [facility] [address] [id number] [address] [place] [address], [place] [address] Aug, [facility] [address] [id number] [address] [place] [address], [place] [address] Aug, [facility] [address] [id number] [address] [place] [address], [place] [address] Aug, [facility] [address] [id number] [address] [place] [address], [place] [address] Aug, [facility] [address] [id number] [address] [place] [address], [place] [address] Aug, [facility] [address] [id number] [address] [place] [address], [place] [address] Aug, [facility] [address] [id number] [address] [place] [address], [place] [address] Aug, [facility] [address] [id number] [address] [place] [address], [place] [address] Aug, [facility] [address] [id number] [address] [place] [address], [place] [address] Aug, [facility] [address] [id number] [address] [place] [address], [place] [address] Aug, [facility] [address] [id number] [address] [place] [address], [place] [address] Aug, [facility] [address] [id number] [address] [place] [address], [place] [address] Aug, [facility] [address] [id number] [address] [place] [address], [place] [address] Aug, [facility] [address] [id number] [address] [place] [address], [place] [address] 20 Aug, 2013 [facility] [address] [id number] [address] [place] [address], [place] [address] 14 Aug, 2013 [facility] [address] [id number] [address] [place] [address], [place] [address] 14 Aug, 2013 [facility] [address] [id number] [address] [place] [address], [place] [address] 14 Aug, 2013 [facility] [address] [id number] [address] [place] [address], [place] [address] 14 Aug, 2013 [facility] [address] [id number] [address] [place] [address], [place] [address] 07 Aug, 2013 [facility] [address] [id number] [address] [place] [address], [place] [address] 07 Aug, 2013 [facility] [address] [id number] [address] [place] [address], [place] [address] 06 Aug, 2013 [facility] [address] [id number] [address] [place] [address], [place] [address] 06 Aug, 2013 [facility] [address] [id number] [address] [place] [address], [place] [address] 04 Aug, 2013 [facility] [address] [id number] [address] [place] [address], [place] [address] 04 Aug, 2013 [facility] [address] [id number] [address] [place] [address], [place] [address] Aug, [facility] [address] [id number] [address] [place] [address], [place] [address] Jul, [facility] [address] [id number] [address] [place] [address], [place] [address] Jul, [facility] [address] [id number] [address] [place] [address], [place] [address] Jul, [facility] [address] [id number] [address] [place] [address], [place] [address] Jul, [facility] [address] [id number] [address] [place] [address], [place] [address] Jul, [facility] [address] [id number] [address] [place] [address], [place] [address] Jul, [facility] [address] [id number] [address] [place] [address], [place] [address] Jul, [facility] [address] [id number] [address] [place] [address], [place] [address] Jul, [facility] [address] [id number] [address] [place] [address], [place] [address] Jul, [facility] [address] [id number] [address] [place] [address], [place] [address] Jul, [facility] [address] [id number] [address] [place] [address], [place] [address] Jul, [facility] [address] [id number] [address] [place] [address], [place] [address] Jul, [facility] [address] [id number] [address] [place] [address], [place] [address] Jul, [facility] [address] [id number] [address] [place] [address], [place] [address] Jul, [facility] [address] [id number] [address] [place] [address], [place] [address] Jul, [facility] [address] [id number] [address] [place] [address], [place] [address] Jul, [facility] [address] [id number] [address] [place] [address], [place] [address] Jul, [facility] [address] [id number] [address] [place] [address], [place] [address] Jul, [facility] [address] [id number] [address] [place] [address], [place] [address] Jul, [facility] [address] [id number] [address] [place] [address], [place] [address] Jul, [facility] [address] [id number] [address] [place] [address], [place] [address] Jun, [facility] [address] [id number] [address] [place] [address], [place] [address] Jun, [facility] [address] [id number] [address] [place] [address], [place] [address] Jun, [facility] [address] [id number] [address] [place] [address], [place] [address] Jun, [facility] [address] [id number] [address] [place] [address], [place] [address] Jun, [facility] [address] [id number] [address] [place] [address], [place] [address] Jun, [facility] [address] [id number] [address] [place] [address], [place] [address] Jun, [facility] [address] [id number] [address] [place] [address], [place] [address] Jun, [facility] [address] [id number] [address] [place] [address], [place] [address] Jun, [facility] [address] [id number] [address] [place] [address], [place] [address] Jun, [facility] [address] [id number] [address] [place] [address], [place] [address] Jun, [facility] [address] [id number] [address] [place] [address], [place] [address] Jun, [facility] [address] [id number] [address] [place] [address], [place] [address] Jun, [facility] [address] [id number] [address] [place] [address], [place] [address] 20 Jun, 2013 [facility] [address] [id number] [address] [place] [address], [place] [address] 20 Jun, 2013 [facility] [address] [id number] [address] [place] [address], [place] [address] 18 Jun, 2013 [facility] [address] [id number] [address] [place] [address], [place] [address] 18 Jun, 2013 [facility] [address] [id number] [address] [place] [address], [place] [address] 17 Jun, 2013 [facility] [address] [id number] [address] [place] [address], [place] [address] 17 Jun, 2013 [facility] [address] [id number] [address] [place] [address], [place] [address] 13 Jun, 2013 [facility] [address] [id number] [address] [place] [address], [place] [address] 12 Jun, 2013 [facility] [address] [id number] [address] [place] [address], [place] [address] 12 Jun, 2013 [facility] [address] [id number] [address] [place] [address], [place] [address] 09 Jun, 2013 [facility] [address] [id number] [address] [place] [address], [place] [address] 05 Jun, 2013 [facility] [address] [id number] [address] [place] [address], [place] [address] 05 Jun, 2013 [facility] [address] [id number] [address] [place] [address], [place] [address] 04 Jun, 2013 [facility] [address] [id number] [address] [place] [address], [place] [address] 04 Jun, 2013 [facility] [address] [id number] [address] [place] [address], [place] [address] 17 May, 2013 [facility] [address] [id number] [address] [place] [address], [place] [address] May, [facility] [address] [id number] [address] [place] [address], [place] [address] May, [facility] [address] [id number] [address] [place] [address], [place] [address] May, [facility] [address] [id number] [address] [place] [address], [place] [address] May, [facility] [address] [id number] [address] [place] [address], [place] [address] May, [facility] [address] [id number] [address] [place] [address], [place] [address] Apr, [facility] [address] [id number] [address] [place] [address], [place] [address] Apr, [facility] [address] [id number] [address] [place] [address], [place] [address] Apr, [facility] [address] [id number] [address] [place] [address], [place] [address] Apr, [facility] [address] [id number] [address] [place] [address], [place] [address] Apr, [facility] [address] [id number] [address] [place] [address], [place] [address] Apr, [facility] [address] [id number] [address] [place] [address], [place] [address] Apr, [facility] [address] [id number] [address] [place] [address], [place] [address] Apr, [facility] [address] [id number] [address] [place] [address], [place] [address] Mar, [facility] [address] [id number] [address] [place] [address], [place] [address] 24 Mar, 2013 [facility] [address] [id number] [address] [place] [address], [place] [address] 17 Mar, 2013 [facility] [address] [id number] [address] [place] [address] [place] [address] 17 Mar, 2012 [facility] [address] [id number] [address] [place] [address], [place] [address] 11 Mar, 2012 [facility] [address] [id number] [address] [place] [address], [place] [address] 10 Mar, 2012 [facility] [address] [id number] [address] [place] [address], [place] [address] 05 Mar, 2012 [facility] [address] [id number] [address] [place] [address], [place] [address] 04 Mar, 2013 [facility] [address] [id number] [address] [place] [address], [place] [address] 20 Jan, 2013 [facility] [address] [id number] [address] [place] [address], [place] [address] Jan, [facility] [address] [id number] [address] [place] [address], [place] [address] 14 Jan, 2013 [facility] [address] [id number] [address] [place] [address], [place] [address] Jan, [facility] [address] [id number] [address] [place] [address], [place] [address] Jan, [facility] [address] [id number] [address] [place] [address], [place] [address] Jan, [facility] [address] [id number] [address] [place] [address], [place] [address] Dec, [facility] [address] [id number] [address] [place] [address], [place] [address] Dec, [facility] [address] [id number] [address] [place] [address], [place] [address] Dec, [facility] [address] [id number] [address] [place] [address], [place] [address] Dec, [facility] [address] [id number] [address] [place] [address], [place] [address] Dec, [facility] [address] [id number] [address] [place] [address], [place] [address] 17 Dec, 2012 [facility] [address] [id number] [address] [place] [address], [place] [address] 16 Dec, 2012 [facility] [address] [id number] [address] [place] [address], [place] [address] 16 Dec, 2012 [facility] [address] [id number] [address] [place] [address], [place] [address] 15 Dec, 2012 [facility] [address] [id number] [address] [place] [address], [place] [address] 10 Dec, 2012 [facility] [address] [id number] [address] [place] [address], [place] [address] 28 Dec, 2012 [facility] [address] [id number] [address] [place] [address], [place] [address] Dec, [facility] [address] [id number] [address] [place] [address], [place] [address] Dec, [facility] [address] [id number] [address] [place] [address], [place] [address] Dec, [facility] [address] [id number] [address] [place] [address], [place] [address] Dec, [facility] [address] [id number] [address] [place] [address], [place] [address] Dec, [facility] [address] [id number] [address] [place] [address], [place] [address] October, [facility] [address] [id number] [address] [place] [address], [place] [address] October, [facility] [address] [id number] [address] [place] [address], [place] [address] October, [facility] [address] [id number] [address] [place] [address], [place] [address] October, [facility] [address] [id number] [address] [place] [address], [place] [address] October, [facility] [address] [id number] [address] [place] [address], [place] [address] October, [facility] [address] [id number] [address] [place] [address], [place] [address] October, [facility] [address] [id number] [address] [place] [address], [place] [address] Oct, [facility] [address] [id number] [address] [place] [address], [place] [address] Oct, [facility] [address] [id number] [address] [place] [address], [place] [address] Oct, [facility] [address] [id number] [address] [place] [address], [place] [address] Oct, [facility] [address] [id number] [address] [place] [address], [place] [address] Oct, [facility] [address] [id number] [address] [place] [address], [place] [address] Oct, [facility] [address] [id number] [address] [place] [address], [place] [address] Oct, [facility] [address] [id number] [address] [place] [address], [place] [address] Oct, [facility] [address] [id number] [address] [place] [address], [place] [address] Oct, [facility] [address] [id number] [address] [place] [address], [place] [address] Oct, [facility] [address] [id number] [address] [place] [address], [place] [address] Oct, [facility] [address] [id number] [address] [place] [address], [place] [address] Oct, [facility] [address] [id number] [address] [place] [address], [place] [address] Aug, [facility] [address] [id number] [address] [place] [address], [place] [address] 20 Aug, 2012 [facility] [address] [id number] [address] [place] [address], [place] [address] 12 Aug, 2012 [facility] [address] [id number] [address] [place] [address], [place] [address] 06 Aug, 2012 [facility] [address] [id number] [address] [place] [address], [place] [address] 05 Aug, 2012 [facility] [address] [id number] [address] [place] [address], [place] [address] 05 Aug, 2012 [facility] [address] [id number] [address] [place] [address], [place] [address] 20 Aug, 2012 [facility] [address] [id number] [address] [place] [address], [place] [address] 14 Aug, 2012 [facility] [address] [id number] [address] [place] [address], [place] [address] 12 Aug, 2012 [facility] [address] [id number] [address] [place] [address], [place] [address] Aug, [facility] [address] [id number] [address] [place] [address], [place] [address] Jul, [facility] [address] [id number] [address] [place] [address], [place] [address] 15 Jul, 2012 [facility] [address] [id number] [address] [place] [address], [place] [address] Jul, [facility] [address] [id number] [address] [place] [address], [place] [address] Jun, [facility] [address] [id number] [address] [place] [address], [place] [address] Jun, [facility] [address] [id number] [address] [place] [address], [place] [address] Jun, [facility] [address] [id number] [address] [place] [address], [place] [address] Jun, [facility] [address] [id number] [address] [place] [address], [place] [address] 18 Jun, 2012 [facility] [address] [id number] [address] [place] [address], [place] [address] 14 Jun, 2012 [facility] [address] [id number] [address] [place] [address], [place] [address] 14 Jun, 2012 [facility] [address] [id number] [address] [place] [address], [place] [address] 13 Jun, 2012 [facility] [address] [id number] [address] [place] [address], [place] [address] 13 Jun, 2012 [facility] [address] [id number] [address] [place] [address], [place] [address] 11 Jun, 2012 [facility] [address] [id number] [address] [place] [address], [place] [address] 11 Jun, 2012 [facility] [address] [id number] [address] [place] [address], [place] [address] 11 Jun, 2012 [facility] [address] [id number] [address] [place] [address], [place] [address] 11 Jun, 2012 [facility] [address] [id number] [address] [place] [address], [place] [address] 07 Jun, 2012 [facility] [address] [id number] [address] [place] [address], [place] [address] 07 Jun, 2012 [facility] [address] [id number] [address] [place] [address], [place] [address] 06 Jun, 2012 [facility] [address] [id number] [address] [place] [address], [place] [address] Jun, [facility] [address] [id number] [address] [place] [address], [place] [address] 06 Jun, 2012 [facility] [address] [id number] [address] [place] [address], [place] [address] 06 Jun, 2012 [facility] [address] [id number] [address] [place] [address], [place] [address] 05 Jun, 2012 [facility] [address] [id number] [address] [place] [address], [place] [address] Jun, [facility] [address] [id number] [address] [place] [address], [place] [address] Jun, [facility] [address] [id number] [address] [place] [address], [place] [address] Jun, [facility] [address] [id number] [address] [place] [address], [place] [address] May, [facility] [address] [id number] [address] [place] [address], [place] [address] May, [facility] [address] [id number] [address] [place] [address], [place] [address] May, [facility] [facility] [address] [id number] [address] [place] [address], [place] [address] May, [facility] [address] [id number] [address] [place] [address], [place] [address] May, [facility] [address] [id number] [address] [place] [address], [place] [address] May, [facility] [address] [id number] [address] [place] [address], [place] [address] May, [facility] [address] [id number] [address] [place] [address], [place] [address] May, [facility] [address] [id number] [address] [place] [id number] Apr, [facility] [address] [id number] [address] [place] [address], [place] [address] Apr, [facility] [address] [id number] [address] [place] [address], [place] [address] Apr, [facility] [address] [id number] [address] [place] [id number] 16 Apr, 2012 [facility] [address] [id number] [address] [place] [address], [place] [address] 16 Apr, 2012 [facility] [address] [id number] [address] [place] [address], [place] [address] Apr, [facility] [address] [id number] [address] [place] [address], [place] [address] Apr, [facility] [address] [id number] [address] [place] [address], [place] [address] Apr, [facility] [address] [id number] [address] [place] [address], [place] [address] Apr, [facility] [address] [id number] [address] [place] [address], [place] [address] Apr, [facility] [address] [id number] [address] [place] [address], [place] [address] Apr, [facility] [address] [id number] [address] [place] [address], [place] [address] Apr, [facility] [address] [id number] [address] [place] [address], [place] [address] 19 Mar, 2012 [facility] [address] [id number] [address] [place] [id number] 18 Mar, 2012 [facility] [address] [id number] [address] [place] [address], [place] [address] 12 Mar, 2012 [facility] [address] [id number] [address] [place] [address], [place] [address] 12 Mar, 2012 [facility] [address] [id number] [address] [place] [id number] Mar, [facility] [address] [id number] [address] [place] [id number] Mar, [facility] [address] [id number] [address] [place] [address], [place] [address] 04 Mar, 2012 [facility] [address] [id number] [address] [place] [id number] Jan, [facility] [address] [id number] [address] [place] [address], [place] [address] Jan, [facility] [address] [id number] [address] [place] [address], [place] [id number] Jan, [facility] [address] [id number] [facility] [id number] Jan, [facility] [address] [id number] [address] [place] [address], [place] [address] Jan, [facility] [address] [id number] [address] [place] [address], [place] [address] Jan, [facility] [address] [id number] [address] [place] [address], [place] [address] Jan, [facility] [address] [id number] [address] [place] [address], [place] [address] Jan, [facility] [address] [id number] [address] [place] [address], [place] [address] Jan, [facility] [address] [id number] [address] [place] [address], [place] [address] Jan, [facility] [address] [id number] [address] [place] [address], [place] [address] Jan, [facility] [address] [id number] [address] [place] [address], [place] [address] Dec, [facility] [address] [id number] [address] [place] [address], [place] [address] Dec, [facility] [address] [id number] [address] [place] [address], [place] [address] Dec, [facility] [address] [id number] [address] [place] [address], [place] [address] Dec, [facility] [address] [id number] [address] [place] [address], [place] [address] Dec, [facility] [address] [id number] [address] [place] [address] [place] [address] 19 Jan, 2012 [facility] [address] [id number] [address] [place] [address], [place] [address] 18 Jan, 2012 [facility] [address] [id number] [address] [place] [address], [place] [address] 17 Jan, 2012 [facility] [address] [id number] [address] [place] [address], [place] [address] 16 Jan, 2012 [facility] [address] [id number] [address] [place] [address], [place] [address] 13 Jan, 2012 [facility] [address] [id number] [address] [place] [address], [place] [address] 13 Jan, 2012 [facility] [address] [id number] [address] [place] [address], [place] [address] 02 Jan, 2012 [facility] [address] [id number] [address] [place] [address], [place] [address] Dec, [facility] [address] [id number] [address] [place] [address], [place] [address] Dec, [facility] [address] [id number] [address] [place] [address], [place] [address] Dec, [facility] [address] [id number] [address] [place] [address], [place] [address] Dec, [facility] [address] [id number] [address] [place] [address], [place] [address] 15 Dec, 2011 [facility] [address] [id number] [address] [place] [address], [place] [address] Dec, [facility] [address] [id number] [address] [place] [address], [place] [address] 05 Dec, 2011 [facility] [address] [id number] [address] [place] [address], [place] [address] October, [facility] [address] [id number] [address] [place] [address], [place] [address] October, [facility] [address] [id number] [address] [place] [address], [place] [address] October, [facility] [address] [id number] [address] [place] [address], [place] [address] October, [facility] [address] [id number] [address] [place] [address], [place] [address] October, [facility] [address] [id number] [address] [place] [address], [place] [address] October, [facility] [address] [id number] [address] [place] [address], [place] [address] Oct, [facility] [address] [id number] [address] [place] [address], [place] [address] 24 Oct, 2011 [facility] [address] [id number] [address] [place] [address], [place] [address] Oct, [facility] [address] [id number] [address] [place] [address], [place] [address] Oct, [facility] [address] [id number] [address] [place] [address], [place] [address] Oct, [facility] [address] [id number] [address] [place] [address], [place] [address] Oct, [facility] [address] [id number] [address] [place] [address], [place] [address] Oct, [facility] [address] [id number] [address] [place] [address], [place] [address] 29 Sep, 2011 [facility] [address] [id number] [address] [place] [address], [place] [address] 29 Sep, 2011 [facility] [address] [id number] [address] [place] [address], [place] [address] 19 Sep, 2011 [facility] [address] [id number] [address] [place] [address], [place] [address] 13 Sep, 2011 [facility] [address] [id number] [address] [place] [address], [place] [address] Aug, [facility] [address] [id number] [address] [place] [address], [place] [address] Aug, [facility] [address] [id number] [address] [place] [address], [place] [address] 27 Aug, 2011 [facility] [address] [id number] [address] [place] [address], [place] [address] Aug, [facility] [address] [id number] [address] [place] [address], [place] [address] 08 Aug, 2011 [facility] [address] [id number] [address] [place] [address], [place] [address] Jul, [facility] [address] [id number] [address] [place] [address], [place] [address] Jul, [facility] [address] [id number] [address] [place] [address], [place] [address] Jul, [facility] [address] [id number] [address] [place] [address], [place] [address] Jul, [facility] [address] [id number] [address] [place] [address], [place] [address] Jun, [facility] [address] [id number] [address] [place] [address], [place] [address] Jun, [facility] [address] [id number] [address] [place] [address], [place] [address] May, [facility] [address] [id number] [address] [place] [address], [place] [address] May, [facility] [address] [id number] [address] [place] [address], [place] [address] May, [facility] [address] [id number] [address] [place] [address], [place] [address] May, [facility] [address] [id number] [address] [place] [address], [place] [address] May, [facility] [address] [id number] [address] [place] [address] Apr, [facility] [address] [id number] [address] [place] [address] Apr, [facility] [address] [id number] [address] [place] [address] Apr, [facility] [address] [id number] [address] [place] [phone] Jan, [facility] [address] [id number] [address] [place] [address] Dec, [facility] [address] [id number] [address] [place] [address] October, [facility] [address] [id number] [address] [place] [address] Jun, [facility] [address] [id number] [address] [place] [address] Apr, [facility] [address] [id number] [address] [place] [address] Apr, [facility] [address] [id number] [address] [place] [address] Apr, [facility] [address] [id number] [address] [place] [id number] Jun, IMMUNIZATIONS No Known Immunizations SOCIAL HISTORY Never Assessed REASON FOR VISIT [facility] PLAN OF CARE VITAL SIGNS MEDICATIONS Unknown Medications RESULTS No Results PROCEDURES No Known procedures INSTRUCTIONS MEDICATIONS ADMINISTERED No Known Medications MEDICAL (GENERAL) HISTORY Type Description Date Medical History Psychiatric disorder Medical History Hard of hearing Surgical History Neofibrous tumor Surgical History back injection Hospitalization History Intestinal blockage Hospitalization History past psychiatric hospitalizations x2
--- OUTSIDE RECORDS SUMMARY | 2020-01-25 12:53 | XMS REPORT ---
Author Author Ana Mayer Doctor Organization [facility] Address Unknown Phone Unavailable Care Team Providers Care Audit Intern Name Role Phone Migration, Doctor Unavailable Unavailable PROBLEMS Type Condition ICD9-CM Code EVO94-HH Code Onset Dates Condition S tatus SNOMED Code Problem Attention deficit R41.840 Active 76 445537 Problem Chronic hepatitis C without hepatic coma B18.2 Active 235133015 Problem Cannabis abuse F12.10 Active 95401 009 Problem Bipolar disorder, in partial remission, most rec ent episode hypomanic F31.71 Active 978148647 Problem Attention deficit hyperactivity disorder (ADHD), combi luciano type F90.2 Active 74746950 Problem Bipolar 1 disorder F31.9 Active 3 31990149 Problem H/O laminectomy Z98.89 Active 1616 18579 Problem Other chronic pain G89.29 Active 8 5547168 Problem Anxiety disorder, unspecified type F41.9 Active [id number] ALLERGIES No Information ENCOUNTERS Encounter Location Date Diagnosis [facility] [place] [address] [facility] [id number] [address] [place] [phone] Oct, [facility] [place] [address] [facility] [id number] [address] [place] [id number] Aug, Bipolar disorder, in partial remission, most recent episode hypomanic F31.71 ; Attention deficit hyperactivity disorder (ADHD), combined type F90.2 and Anxiety disorder, unspecified type F41.9 [facility] [place] [address] [facility] [id number] [address] [place] [id number] Aug, [facility] [place] [address] [facility] [id number] [address] [place] [id number] Aug, Bipolar disorder, in partial remission, most recent episode hypomanic F31.71 [facility] [place] [address] [facility] [id number] [address] [place] [id number] Aug, [facility] [place] [address] [id number] [address] [place] [id number] Aug, Bipolar disorder, in partial remission, most recent episode hypomanic F31.71 [facility] [place] [address] [id number] [address] [place] [id number] Aug, Bipolar disorder, in partial remission, most recent episode hypomanic F31.71 ; Attention deficit hyperactivity disorder (ADHD), combined type F90.2 and Anxiety disorder, unspecified type F41.9 [facility] [place] [address] [id number] [address] [place] [id number] Aug, Low back pain M54.5 and Pain in left wrist M25.532 [facility] [place] [address] [id number] [address] [place] [id number] Aug, [facility] [place] [address] [id number] [address] [place] [id number] Jun, [facility] [place] [address] [facility] [id number] [address] [place] [phone] Apr, Bipolar disorder, in partial remission, most recent episode hypomanic F31.71 [facility] [place] [address] [id number] [address] [place] [id number] Apr, [facility] [place] [address] [id number] [address] [place] [address] Apr, Bipolar disorder, in partial remission, most recent episode hypomanic F31.71 ; Attention deficit hyperactivity disorder (ADHD), combined type F90.2 ; Anxiety disorder, unspecified type F41.9 and Other nursing home (current) 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 Z79.899 [facility] [place] [address] [id number] [address] [place] [id number] Apr, Bipolar disorder, in partial remission, most recent episode hypomanic F31.71 [facility] [place] [address] [id number] [address] [place] [id number] Apr, Bipolar disorder, in partial remission, most recent episode hypomanic F31.71 [facility] [place] [address] [facility] [id number] [address] [place] [id number] Mar, [facility] [place] [address] [id number] [address] [place] [phone] Mar, Bipolar disorder, in partial remission, most recent episode hypomanic F31.71 ; Encounter for immunization Z23 and Low back pain M54.5 [facility] [place] [address] [id number] [address] [place] [id number] Mar, Bipolar disorder, in partial remission, most recent episode hypomanic F31.71 [facility] [place] [address] [id number] [address] [place] [phone] Mar, Bipolar disorder, in partial remission, most recent episode hypomanic F31.71 [facility] [place] [address] [facility] [id number] [address] [place] [id number] Jan, Bipolar disorder, in partial remission, most recent episode hypomanic F31.71 [facility] [place] [address] [facility] [id number] [address] [place] [id number] Jan, Bipolar disorder, in partial remission, most recent episode hypomanic F31.71 [facility] [place] [address] [facility] [id number] [address] [place] [id number] Dec, Bipolar disorder, in partial remission, most recent episode hypomanic F31.71 [facility] [place] [address] [facility] [id number] [address] [place] [address] Dec, Bipolar disorder, in partial remission, most recent episode hypomanic F31.71 ; Attention deficit hyperactivity disorder (ADHD), combined type F90.2 ; Anxiety disorder, unspecified type F41.9 and Other nursing home (current) 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 Z79.899 [facility] [place] [address] [facility] [id number] [address] [place] [id number] Dec, Bipolar disorder, in partial remission, most recent episode hypomanic F31.71 [facility] [place] [address] [facility] [id number] [address] [place] [id number] Dec, Bipolar disorder, in partial remission, most recent episode hypomanic F31.71 [facility] [place] [address] [id number] [address] [place] [id number] October, Bipolar disorder, in partial remission, most recent episode hypomanic F31.71 [facility] [place] [address] [id number] [address] [place] [id number] October, [facility] [place] [address] [id number] [address] [place] [phone] October, [facility] [place] [address] [id number] [address] [place] [id number] Oct, Bipolar disorder, in partial remission, most recent episode hypomanic F31.71 ; Attention deficit hyperactivity disorder (ADHD), combined type F90.2 ; Anxiety disorder, unspecified type F41.9 and Encounter for drug screening Z02.83 [facility] [place] [address] [id number] [address] [place] [id number] Oct, Bipolar disorder, in partial remission, most recent episode hypomanic F31.71 [facility] [place] [address] [id number] [address] [place] [phone] Oct, Bipolar disorder, in partial remission, most recent episode hypomanic F31.71 [facility] [place] [address] [id number] [address] [place] [id number] Aug, Bipolar disorder, in partial remission, most recent episode hypomanic F31.71 [facility] [place] [address] [id number] [address] [place] [phone] Aug, Bipolar disorder, in partial remission, most recent episode hypomanic F31.71 [facility] [place] [address] [id number] [address] [place] [id number] Aug, Bipolar disorder, in partial remission, most recent episode hypomanic F31.71 [facility] [place] [address] [id number] [address] [place] [phone] Jul, Bipolar disorder, in partial remission, most recent episode hypomanic F31.71 ; Attention deficit hyperactivity disorder (ADHD), combined type F90.2 and Anxiety disorder, unspecified type F41.9 [facility] [place] [address] [id number] [address] [place] [phone] Jul, Bipolar disorder, in partial remission, most recent episode hypomanic F31.71 [facility] [place] [address] [id number] [address] [place] [id number] Jun, Bipolar disorder, in partial remission, most recent episode hypomanic F31.71 [facility] [place] [address] [id number] [address] [place] [id number] May, Bipolar disorder, in partial remission, most recent episode hypomanic F31.71 [facility] [place] [address] [facility] [id number] [address] [place] [phone] May, Bipolar disorder, in partial remission, most recent episode hypomanic F31.71 [facility] [place] [address] [facility] [id number] [address] [place] [phone] Apr, [facility] [place] [address] [id number] [address] [place] [phone] Apr, Bipolar disorder, in partial remission, most recent episode hypomanic F31.71 ; Attention deficit hyperactivity disorder (ADHD), combined type F90.2 ; Anxiety disorder, unspecified type F41.9 and Cannabis abuse F12.10 [facility] [place] [address] [id number] [address] [place] [id number] Apr, Attention deficit hyperactiv ity disorder (ADHD), combined type F90.2 [facility] [place] [address] [id number] [address] [place] [phone] Mar, Attention deficit hyperactiv ity disorder (ADHD), combined type F90.2 [facility] [place] [address] [facility] [id number] [address] [place] [phone] Mar, Anxiety disorder, unspecifie d type F41.9 [facility] [place] [address] [facility] [id number] [address] [place] [id number] Jan, Attention deficit hyperactiv ity disorder (ADHD), combined type F90.2 [facility] [place] [address] [facility] [id number] [address] [place] [id number] Jan, Anxiety disorder, unspecifie d type F41.9 [facility] [place] [address] [facility] [id number] [address] [place] [id number] Jan, Other chronic pain G89.29 ; Chronic hepatitis C without hepatic coma B18.2 and Bipolar 1 disorder F31.9 [facility] [place] [address] [facility] [id number] [address] [place] [id number] Dec, Attention deficit hyperactiv ity disorder (ADHD), combined type F90.2 [facility] [place] [address] [facility] [id number] [address] [place] [phone] Dec, Bipolar disorder, in partial remission, most recent episode hypomanic F31.71 ; Attention deficit hyperactivity disorder (ADHD), combined type F90.2 and Anxiety disorder, unspecified type F41.9 [facility] [place] [address] [facility] [id number] [address] [place] [id number] Dec, Bipolar disorder, in partial remission, most recent episode hypomanic F31.71 ; Attention deficit hyperactivity disorder (ADHD), combined type F90.2 and Anxiety disorder, unspecified type F41.9 [facility] [place] [address] [facility] [id number] [address] [place] [id number] Dec, Bipolar 1 disorder F31.9 and Attention deficit R41.840 [facility] [place] [address] [facility] [id number] [address] [place] [phone] Oct, Other chronic pain G89.29 ; Alopecia L65.9 and Screening, lipid Z13.220 [facility] [place] [address] [facility] [id number] [address] [place] [phone] Oct, [place] [address] [facility] [id number] [address] [place] [id number] Aug, [facility] [place] [address] [facility] [id number] [address] [place] [id number] Aug, Eustachian tube dysfunction, right H69.81 ; Vertigo R42 and Other chronic pain G89.29 [facility] [place] [address] [id number] [address] [place] [id number] Aug, [facility] [place] [address] [id number] [address] [place] [id number] Jun, [facility] [place] [address] [id number] [address] [place] [id number] Jun, Low back pain M54.5 and Othe r chronic pain G89.29 [facility] [place] [address] [id number] [address] [place] [phone] Jun, [facility] [place] [address] [id number] [address] [place] [phone] May, [facility] [place] [address] [id number] [address] [place] [id number] Jan, [facility] [place] [address] [id number] [address] [place] [phone] Dec, [facility] [place] [address] [id number] [address] [place] [phone] Dec, [facility] [place] [address] [id number] [address] [place] [phone] Jun, [facility] [place] [address] [id number] [address] [place] [id number] Apr, Eustachian tube dysfunction, unspecified laterality H69.80 ; Hot flashes N95.1 and Encounter for immunization Z23 [facility] [place] [address] [id number] [address] [place] [id number] Jan, [facility] [place] [address] [id number] [address] [place] [phone] Jan, [facility] [place] [address] [id number] [address] [place] [id number] Jan, [facility] [place] [address] [id number] [address] [place] [phone] Jan, [facility] [place] [address] [id number] [address] [place] [id number] Jan, Encounter to establish care V65.8 ; Bipolar 1 disorder 296.7 ; Abdominal pain 789.00 ; Constipation 564.00 ; Hard of hearing 389.9 and Drug abuse 305.90 [facility] [place] [address] [id number] [address] [place] [id number] Dec, [facility] [place] [address] [id number] [address] [place] [id number] October, [facility] [place] [address] [id number] [address] [place] [phone] October, [facility] [place] [address] [id number] [address] [place] [id number] Oct, [facility] [place] [address] [id number] [address] [place] [phone] Oct, [facility] [place] [address] [id number] [address] [place] [id number] Oct, [facility] [place] [address] [id number] [address] [place] [id number] Aug, [facility] [place] [address] [id number] [address] [place] [id number] Aug, [facility] [place] [address] [id number] [address] [place] [id number] Aug, [facility] [place] [address] [id number] [address] [place] [phone] Aug, [facility] [place] [address] [id number] [address] [place] [phone] Aug, [facility] [place] [address] [id number] [address] [place] [id number] Aug, [facility] [place] [address] [id number] [address] [place] [address], [place] [address] Aug, 2014 [facility] [address] [id number] [address] [address], [place] [address] Aug, 2014 [facility] [address] [id number] [address] [address], [place] [address] Aug, 2014 [facility] [address] [id number] [address] [place] [address], [place] [address] Aug, 2014 [facility] [address] [id number] [address] [place] [address], [place] [address] Aug, 2014 [facility] [address] [id number] [address] [address], [place] [address] Aug, 2014 [facility] [address] [id number] [address] [place] [address], [place] [address] Aug, 2014 [facility] [address] [id number] [address] [place] [address], [place] [address] Aug, 2014 [facility] [address] [id number] [address] [place] [address], [place] [address] Aug, [facility] [address] [id number] [address] [place] [address], [place] [address] Jul, [facility] [address] [id number] [address] [place] [address], [place] [address] Jul, [facility] [address] [id number] [address] [place] [address], [place] [address] Jul, [facility] [address] [id number] [address] [place] [address], [place] [address] Jul, [facility] [address] [id number] [address] [place] [address], [place] [address] Jul, [facility] [address] [id number] [address] [place] [address], [place] [address] Jul, [facility] [address] [id number] [address] [place] [address], [place] [address] Jul, [facility] [address] [id number] [address] [place] [address], [place] [address] Jul, [facility] [address] [id number] [address] [place] [address], [place] [address] Jun, [facility] [address] [id number] [address] [place] [address], [place] [address] Jun, [facility] [address] [id number] [address] [place] [address], [place] [address] Jun, [facility] [address] [id number] [address] [place] [address], [place] [address] Jun, [facility] [address] [id number] [address] [address], [place] [id number] Jun, [facility] [address] [id number] [address] [address], [place] [id number] Jun, [facility] [address] [id number] [address] [address], [place] [address] Jun, [facility] [address] [id number] [address] [address], [place] [id number] Jun, [facility] [address] [id number] [address] [address], [place] [address] Jun, [facility] [address] [id number] [address] [address], [place] [address] Jun, [facility] [address] [id number] [address] [address], [place] [address] Jun, [facility] [address] [id number] [address] [address], [place] [address] May, [facility] [address] [id number] [address] [address], [place] [address] May, [facility] [address] [id number] [address] [address], [place] [address] May, [facility] [address] [id number] [address] [address], [place] [address] May, [facility] [address] [id number] [address] [address], [place] [address] May, [facility] [address] [id number] [address] [address], [place] [address] May, [facility] [address] [id number] [address] [address], [place] [address] May, [facility] [address] [id number] [address] [address], [place] [id number] Apr, [facility] [address] [id number] [address] [address], [place] [address] Apr, [facility] [address] [id number] [address] [place] [address], [place] [address] Apr, [facility] [address] [id number] [address] [address], [place] [address] Apr, [facility] [address] [id number] [address] [address], [place] [address] Apr, [facility] [address] [id number] [address] [address], [place] [address] Apr, [facility] [address] [id number] [address] [address], [place] [address] Mar, [facility] [address] [id number] [address] [address], [place] [address] 29 Mar, 2013 [facility] [address] [id number] [address] [address], [place] [address] 10 Mar, 2013 [facility] [address] [id number] [address] [address], [place] [address] 10 Mar, 2013 [facility] [address] [id number] [address] [address], [place] [address] Mar, 2013 [facility] [address] [id number] [address] [address], [place] [address] Mar, [facility] [address] [id number] [address] [address], [place] [address] Jan, [facility] [address] [id number] [address] [address], [place] [address] Jan, [facility] [address] [id number] [address] [address], [place] [address] Jan, [facility] [address] [id number] [address] [address], [place] [address] Jan, [facility] [address] [id number] [address] [address], [place] [address] Dec, [facility] [address] [id number] [address] [address], [place] [address] Dec, [facility] [address] [id number] [address] [address], [place] [address] Dec, [facility] [address] [id number] [address] [address], [place] [address] Dec, [facility] [address] [id number] [address] [address], [place] [address] Dec, [facility] [address] [id number] [address] [address], [place] [address] Dec, [facility] [address] [id number] [address] [address], [place] [address] Dec, [facility] [address] [id number] [address] [address], [place] [address] Dec, [facility] [address] [id number] [address] [address], [place] [address] Dec, [facility] [address] [id number] [address] [address], [place] [address] Dec, [facility] [address] [id number] [address] [address], [place] [address] Dec, [facility] [address] [id number] [address] [address], [place] [address] Dec, [facility] [address] [id number] [address] [address], [place] [address] October, [facility] [address] [id number] [address] [address], [place] [address] October, [facility] [address] [id number] [address] [address], [place] [address] October, [facility] [address] [id number] [address] [address], [place] [address] October, [facility] [address] [id number] [address] [address], [place] [address] October, [facility] [address] [id number] [address] [address], [place] [address] October, [facility] [address] [id number] [address] [address], [place] [address] Oct, [facility] [address] [id number] [address] [address], [place] [address] Oct, [facility] [address] [id number] [address] [address], [place] [address] Oct, [facility] [address] [id number] [address] [address], [place] [address] Oct, [facility] [address] [id number] [address] [address], [place] [address] Oct, [facility] [address] [id number] [address] [address], [place] [address] Oct, [facility] [address] [id number] [address] [address], [place] [address] Oct, [facility] [address] [id number] [address] [address], [place] [address] Oct, [facility] [address] [id number] [address] [address], [place] [address] Oct, [facility] [address] [id number] [facility] [place] [address] 09 Oct, 2013 [facility] [address] [id number] [facility] [place] [address] Oct, [facility] [address] [id number] [address] [address], [place] [address] Oct, [facility] [address] [id number] [address] [address], [place] [address] Aug, [facility] [address] [id number] [address] [address], [place] [address] Aug, [facility] [address] [id number] [address] [address], [place] [address] Aug, [facility] [address] [id number] [address] [address], [place] [address] Aug, [facility] [address] [id number] [address] [address], [place] [address] Aug, [facility] [address] [id number] [address] [address], [place] [address] 05 Aug, 2013 [facility] [address] [id number] [address] [address], [place] [address] Aug, [facility] [address] [id number] [address] [address], [place] [address] Aug, [facility] [address] [id number] [address] [address], [place] [address] Aug, [facility] [address] [id number] [address] [address], [place] [address] Aug, [facility] [address] [id number] [address] [address], [place] [address] Aug, [facility] [address] [id number] [address] [address], [place] [address] Aug, [facility] [address] [id number] [address] [address], [place] [address] Aug, [facility] [address] [id number] [address] [address], [place] [address] 20 Aug, 2013 [facility] [address] [id number] [address] [address], [place] [address] 14 Aug, 2013 [facility] [address] [id number] [address] [address], [place] [address] 14 Aug, 2013 [facility] [address] [id number] [address] [address], [place] [address] 14 Aug, 2013 [facility] [address] [id number] [address] [address], [place] [address] 14 Aug, 2013 [facility] [address] [id number] [address] [address], [place] [address] 07 Aug, 2013 [facility] [address] [id number] [address] [address], [place] [address] 07 Aug, 2013 [facility] [address] [id number] [address] [address], [place] [address] 06 Aug, 2013 [facility] [address] [id number] [address] [address], [place] [address] 06 Aug, 2013 [facility] [address] [id number] [address] [address], [place] [address] 04 Aug, 2013 [facility] [address] [id number] [address] [address], [place] [address] 04 Aug, 2013 [facility] [address] [id number] [address] [address], [place] [address] Aug, [facility] [address] [id number] [address] [address], [place] [address] Jul, [facility] [address] [id number] [address] [address], [place] [address] Jul, [facility] [address] [id number] [address] [address], [place] [address] Jul, [facility] [address] [id number] [address] [address], [place] [address] Jul, [facility] [address] [id number] [address] [address], [place] [address] Jul, [facility] [address] [id number] [address] [address], [place] [address] Jul, [facility] [address] [id number] [address] [address], [place] [address] Jul, [facility] [address] [id number] [address] [address], [place] [address] Jul, [facility] [address] [id number] [address] [address], [place] [address] Jul, [facility] [address] [id number] [address] [address], [place] [address] Jul, [facility] [address] [id number] [address] [address], [place] [address] Jul, [facility] [address] [id number] [address] [address], [place] [address] Jul, [facility] [address] [id number] [address] [address], [place] [address] Jul, [facility] [address] [id number] [address] [address], [place] [address] Jul, [facility] [address] [id number] [address] [address], [place] [address] Jul, [facility] [address] [id number] [address] [address], [place] [address] Jul, [facility] [address] [id number] [address] [address], [place] [address] Jul, [facility] [address] [id number] [address] [address], [place] [address] Jul, [facility] [address] [id number] [address] [address], [place] [address] Jul, [facility] [address] [id number] [address] [address], [place] [address] Jul, [facility] [address] [id number] [address] [address], [place] [address] Jun, [facility] [address] [id number] [address] [address], [place] [address] Jun, [facility] [address] [id number] [address] [address], [place] [address] Jun, [facility] [address] [id number] [address] [address], [place] [address] Jun, [facility] [address] [id number] [address] [address], [place] [address] Jun, [facility] [address] [id number] [address] [address], [place] [address] Jun, [facility] [address] [id number] [address] [address], [place] [address] Jun, [facility] [address] [id number] [address] [address], [place] [address] Jun, [facility] [address] [id number] [address] [address], [place] [address] Jun, [facility] [address] [id number] [address] [address], [place] [address] Jun, [facility] [address] [id number] [address] [address], [place] [address] Jun, [facility] [address] [id number] [address] [address], [place] [address] Jun, [facility] [address] [id number] [address] [address], [place] [address] Jun, [facility] [address] [id number] [address] [address], [place] [address] Jun, [facility] [address] [id number] [address] [address], [place] [address] 20 Jun, 2013 [facility] [address] [id number] [address] [address], [place] [address] 18 Jun, 2013 [facility] [address] [id number] [address] [address], [place] [address] 18 Jun, 2013 [facility] [address] [id number] [address] [address], [place] [address] 17 Jun, 2013 [facility] [address] [id number] [address] [address], [place] [address] 17 Jun, 2013 [facility] [address] [id number] [address] [address], [place] [address] 13 Jun, 2013 [facility] [address] [id number] [address] [address], [place] [address] 12 Jun, 2013 [facility] [address] [id number] [address] [address], [place] [address] 12 Jun, 2013 [facility] [address] [id number] [address] [address], [place] [address] 09 Jun, 2013 [facility] [address] [id number] [address] [address], [place] [address] 05 Jun, 2013 [facility] [address] [id number] [address] [address], [place] [address] 05 Jun, 2013 [facility] [address] [id number] [address] [address], [place] [address] 04 Jun, 2013 [facility] [address] [id number] [address] [address], [place] [address] 04 Jun, 2013 [facility] [address] [id number] [address] [address], [place] [address] 17 May, 2013 [facility] [address] [id number] [address] [address], [place] [address] 17 May, 2013 [facility] [address] [id number] [address] [address], [place] [address] May, [facility] [address] [id number] [address] [address], [place] [address] May, [facility] [address] [id number] [address] [address], [place] [address] May, [facility] [address] [id number] [address] [address], [place] [address] May, [facility] [address] [id number] [address] [address], [place] [address] Apr, [facility] [address] [id number] [address] [address], [place] [address] Apr, [facility] [address] [id number] [address] [address], [place] [address] Apr, [facility] [address] [id number] [address] [address], [place] [address] Apr, [facility] [address] [id number] [address] [address], [place] [address] Apr, [facility] [address] [id number] [address] [address], [place] [address] Apr, [facility] [address] [id number] [address] [address], [place] [address] Apr, [facility] [address] [id number] [address] [address], [place] [address] Apr, [facility] [address] [id number] [address] [address], [place] [address] 26 Mar, 2013 [facility] [address] [id number] [address] [address], [place] [address] 24 Sep2012 [facility] [address] [id number] [address] [address], [place] [address] 17 Mar, 2013 [facility] [address] [id number] [address] [address], [place] [address] 17 Mar, 2013 [facility] [address] [id number] [address] [place] [address] [place] [address] 11 Mar, 2013 [facility] [address] [id number] [address] [address], [place] [address] 10 Mar, 2013 [facility] [address] [id number] [address] [address], [place] [address] 05 Mar, 2013 [facility] [address] [id number] [address] [address], [place] [address] 04 Mar, 2013 [facility] [address] [id number] [address] [address], [place] [address] 20 Jan, 2013 [facility] [address] [id number] [address] [address], [place] [address] Jan, [facility] [address] [id number] [address] [address], [place] [address] 14 Jan, 2013 [facility] [address] [id number] [address] [address], [place] [address] Jan, [facility] [address] [id number] [address] [address], [place] [address] Jan, [facility] [address] [id number] [address] [address], [place] [address] Jan, [facility] [address] [id number] [address] [address], [place] [address] Dec, [facility] [address] [id number] [address] [address], [place] [address] Dec, [facility] [address] [id number] [address] [address], [place] [address] Dec, [facility] [address] [id number] [address] [address], [place] [address] Dec, [facility] [address] [id number] [address] [address], [place] [address] Dec, [facility] [address] [id number] [address] [address], [place] [address] 17 Dec, 2012 [facility] [address] [id number] [address] [address], [place] [address] 16 Dec, 2012 [facility] [address] [id number] [address] [address], [place] [address] 16 Dec, 2012 [facility] [address] [id number] [address] [address], [place] [address] 15 Dec, 2012 [facility] [address] [id number] [address] [address], [place] [address] 10 Dec, 2012 [facility] [address] [id number] [address] [address], [place] [address] 28 Dec, 2012 [facility] [address] [id number] [address] [address], [place] [address] Dec, [facility] [address] [id number] [address] [address], [place] [address] Dec, [facility] [address] [id number] [address] [address], [place] [address] Dec, [facility] [address] [id number] [address] [address], [place] [address] Dec, [facility] [address] [id number] [address] [address], [place] [address] Dec, [facility] [address] [id number] [address] [address], [place] [address] October, [facility] [address] [id number] [address] [address], [place] [address] October, [facility] [address] [id number] [address] [address], [place] [address] October, [facility] [address] [id number] [address] [address], [place] [address] October, [facility] [address] [id number] [address] [address], [place] [address] October, [facility] [address] [id number] [address] [address], [place] [address] October, [facility] [address] [id number] [address] [address], [place] [address] October, [facility] [address] [id number] [address] [address], [place] [address] Oct, [facility] [address] [id number] [address] [address], [place] [address] Oct, [facility] [address] [id number] [address] [address], [place] [address] Oct, [facility] [address] [id number] [address] [address], [place] [address] Oct, [facility] [address] [id number] [address] [address], [place] [address] Oct, [facility] [address] [id number] [address] [address], [place] [address] Oct, [facility] [address] [id number] [address] [address], [place] [address] Oct, [facility] [address] [id number] [address] [address], [place] [address] 15 Oct, 2012 [facility] [address] [id number] [address] [address], [place] [address] Oct, [facility] [address] [id number] [address] [address], [place] [address] Oct, [facility] [address] [id number] [address] [address], [place] [address] Oct, [facility] [address] [id number] [address] [address], [place] [address] Oct, [facility] [address] [id number] [address] [address], [place] [address] Aug, [facility] [address] [id number] [address] [address], [place] [address] Aug, [facility] [address] [id number] [address] [address], [place] [address] 12 Aug, 2012 [facility] [address] [id number] [address] [address], [place] [address] 06 Aug, 2012 [facility] [address] [id number] [address] [address], [place] [address] 05 Aug, 2012 [facility] [address] [id number] [address] [address], [place] [address] 05 Aug, 2012 [facility] [address] [id number] [address] [address], [place] [address] 20 Aug, 2012 [facility] [address] [id number] [address] [address], [place] [address] 14 Aug, 2012 [facility] [address] [id number] [address] [address], [place] [address] 12 Aug, 2012 [facility] [address] [id number] [address] [address], [place] [address] Aug, [facility] [address] [id number] [address] [address], [place] [address] Jul, [facility] [address] [id number] [address] [address], [place] [address] Jul, [facility] [address] [id number] [address] [address], [place] [address] Jul, [facility] [address] [id number] [address] [address], [place] [address] Jun, [facility] [address] [id number] [address] [address], [place] [address] Jun, [facility] [address] [id number] [address] [address], [place] [address] Jun, [facility] [address] [id number] [address] [address], [place] [address] Jun, [facility] [address] [id number] [address] [address], [place] [address] Jun, [facility] [address] [id number] [address] [address], [place] [address] 14 Jun, 2012 [facility] [address] [id number] [address] [address], [place] [address] 14 Jun, 2012 [facility] [address] [id number] [address] [address], [place] [address] 13 Jun, 2012 [facility] [address] [id number] [address] [address], [place] [address] 13 Jun, 2012 [facility] [address] [id number] [address] [address], [place] [address] 11 Jun, 2012 [facility] [address] [id number] [address] [address], [place] [address] 11 Jun, 2012 [facility] [address] [id number] [address] [address], [place] [address] 11 Jun, 2012 [facility] [address] [id number] [address] [address], [place] [address] 11 Jun, 2012 [facility] [address] [id number] [address] [address], [place] [address] 07 Jun, 2012 [facility] [address] [id number] [address] [address], [place] [address] 07 Jun, 2012 [facility] [address] [id number] [address] [address], [place] [address] 06 Jun, 2012 [facility] [address] [id number] [address] [address], [place] [address] 06 Jun, 2012 [facility] [address] [id number] [address] [address], [place] [address] Jun, [facility] [address] [id number] [address] [address], [place] [address] 06 Jun, 2012 [facility] [address] [id number] [address] [address], [place] [address] 05 Jun, 2012 [facility] [address] [id number] [address] [address], [place] [address] Jun, [facility] [address] [id number] [address] [address], [place] [address] Jun, [facility] [address] [id number] [address] [address], [place] [address] Jun, [facility] [address] [id number] [address] [address], [place] [address] May, [facility] [address] [id number] [address] [address], [place] [address] May, [facility] [address] [id number] [address] [address], [place] [address] May, [facility] [address] [id number] [address] [address], [place] [address] May, [facility] [address] [id number] [address] [address], [place] [address] May, [facility] [address] [id number] [address] [address], [place] [address] May, [facility] [address] [id number] [address] [address], [place] [address] May, [facility] [address] [id number] [address] [address], [place] [address] May, [facility] [address] [id number] [address] [address], [place] [address] Apr, [facility] [address] [id number] [address] [place] [address] Apr, [facility] [address] [id number] [address] [address], [place] [address] Apr, [facility] [address] [id number] [address] [address], [place] [address] Apr, [facility] [address] [id number] [address] [place] [address] Apr, [facility] [address] [id number] [address] [address], [place] [address] Apr, [facility] [address] [id number] [address] [address], [place] [address] Apr, [facility] [address] [id number] [address] [address], [place] [address] Apr, [facility] [address] [id number] [address] [address], [place] [address] Apr, [facility] [address] [id number] [address] [address], [place] [address] Apr, [facility] [address] [id number] [address] [address], [place] [address] Apr, [facility] [address] [id number] [address] [address], [place] [address] Apr, [facility] [address] [id number] [address] [address], [place] [address] Mar, [facility] [address] [id number] [address] [address], [place] [address] 18 Mar, 2012 [facility] [address] [id number] [address] [place] [address] Mar, [facility] [address] [id number] [address] [place] [phone] Mar, [facility] [address] [id number] [address] [place] [id number] Mar, [facility] [address] [id number] [address] [place] [id number] Mar, [facility] [address] [id number] [address] [address], [place] [address] Mar, [facility] [address] [id number] [address] [address], [place] [address] Jan, [facility] [address] [id number] [address] [place] [phone] Jan, [facility] [address] [id number] [facility] [place] [id number] Jan, [facility] [address] [id number] [facility] [id number] Jan, [facility] [address] [id number] [address] [address], [place] [address] Jan, [facility] [address] [id number] [address] [address], [place] [address] Jan, [facility] [address] [id number] [address] [address], [place] [address] Jan, [facility] [address] [id number] [address] [address], [place] [address] Jan, [facility] [address] [id number] [address] [address], [place] [address] Jan, [facility] [address] [id number] [address] [address], [place] [address] Jan, [facility] [address] [id number] [address] [address], [place] [address] Jan, [facility] [address] [id number] [address] [address], [place] [address] Dec, [facility] [address] [id number] [address] [address], [place] [address] Dec, [facility] [address] [id number] [address] [address], [place] [address] Dec, [facility] [address] [id number] [address] [address], [place] [address] Dec, [facility] [address] [id number] [address] [address], [place] [address] Dec, [facility] [address] [id number] [address] [address], [place] [address] Dec, [facility] [address] [id number] [address] [place] [address] [place] [address] 18 Jan, 2012 [facility] [address] [id number] [address] [address], [place] [address] 17 Jan, 2012 [facility] [address] [id number] [address] [address], [place] [address] 16 Jan, 2012 [facility] [address] [id number] [address] [address], [place] [address] 13 Jan, 2012 [facility] [address] [id number] [address] [address], [place] [address] 13 Jan, 2012 [facility] [address] [id number] [address] [address], [place] [address] 02 Jan, 2012 [facility] [address] [id number] [address] [address], [place] [address] Dec, [facility] [address] [id number] [address] [address], [place] [address] Dec, [facility] [address] [id number] [address] [address], [place] [address] Dec, [facility] [address] [id number] [address] [address], [place] [address] Dec, [facility] [address] [id number] [address] [address], [place] [address] 15 Dec, 2011 [facility] [address] [id number] [address] [address], [place] [address] Dec, [facility] [address] [id number] [address] [address], [place] [address] Dec, [facility] [address] [id number] [address] [address], [place] [address] October, [facility] [address] [id number] [address] [address], [place] [address] October, [facility] [address] [id number] [address] [address], [place] [address] October, [facility] [address] [id number] [address] [address], [place] [address] October, [facility] [address] [id number] [address] [address], [place] [address] October, [facility] [address] [id number] [address] [address], [place] [address] October, [facility] [address] [id number] [address] [address], [place] [address] Oct, [facility] [address] [id number] [address] [address], [place] [address] 24 Oct, 2011 [facility] [address] [id number] [address] [address], [place] [address] Oct, [facility] [address] [id number] [address] [address], [place] [address] Oct, [facility] [address] [id number] [address] [address], [place] [address] Oct, [facility] [address] [id number] [address] [address], [place] [address] Oct, [facility] [address] [id number] [address] [address], [place] [address] Oct, [facility] [address] [id number] [address] [address], [place] [address] Aug, [facility] [address] [id number] [address] [address], [place] [address] 29 Sep, 2011 [facility] [address] [id number] [address] [address], [place] [address] 19 Sep, 2011 [facility] [address] [id number] [address] [address], [place] [address] 13 Sep, 2011 [facility] [address] [id number] [address] [address], [place] [address] 05 Sep, 2011 [facility] [address] [id number] [address] [address], [place] [address] Aug, [facility] [address] [id number] [address] [address], [place] [address] Aug, [facility] [address] [id number] [address] [address], [place] [address] Aug, [facility] [address] [id number] [address] [address], [place] [address] Aug, [facility] [address] [id number] [address] [address], [place] [address] Jul, [facility] [address] [id number] [address] [address], [place] [address] Jul, [facility] [address] [id number] [address] [address], [place] [address] Jul, [facility] [address] [id number] [address] [address], [place] [address] Jul, [facility] [address] [id number] [address] [address], [place] [address] Jun, [facility] [address] [id number] [address] [address], [place] [address] Jun, [facility] [address] [id number] [address] [address], [place] [address] May, [facility] [address] [id number] [address] [address], [place] [address] May, [facility] [address] [id number] [address] [address], [place] [address] May, [facility] [address] [id number] [address] [address], [place] [address] May, [facility] [address] [id number] [address] [address], [place] [address] 07 May, 2011 [facility] [address] [id number] [address] [address], [place] [address] Apr, [facility] [address] [id number] [address] [place] [id number] Apr, [facility] [place] [address] [id number] [address] [place] [id number] Apr, [facility] [place] [address] [id number] [address] [place] [phone] Jan, [facility] [place] [address] [id number] [address] [place] [phone] Dec, [facility] [place] [address] [id number] [address] [place] [phone] October, [facility] [place] [address] [id number] [address] [place] [address] Jun, [facility] [place] [address] [id number] [address] [place] [phone] Apr, [facility] [place] [address] [id number] [address] [place] [phone] Apr, [facility] [place] [address] [id number] [address] [place] [id number] Apr, [facility] [place] [address] [id number] [address] [place] [phone] Jun, IMMUNIZATIONS No Known Immunizations SOCIAL HISTORY Never Assessed REASON FOR VISIT [facility] [place] OF CARE VITAL SIGNS MEDICATIONS Unknown Medications RESULTS No Results PROCEDURES No Known procedures INSTRUCTIONS MEDICATIONS ADMINISTERED No Known Medications MEDICAL (GENERAL) HISTORY Type Description Date Medical History Psychiatric disorder Medical History Hard of hearing Surgical History Neofibrous tumor Surgical History back injection Hospitalization History Intestinal blockage Hospitalization History past psychiatric hospitalizations x2
--- OUTSIDE RECORDS SUMMARY | 2020-01-25 12:53 | XMS REPORT ---
Author Author Ana Mayer Doctor Organization [facility] Address Unknown Phone Unavailable Care Team Providers Care Speed Winder Name Role Phone Migration, Doctor Unavailable Unavailable PROBLEMS Type Condition ICD9-CM Code MBS86-[place] Code Onset Dates Condition S tatus SNOMED Code Problem Attention deficit R41.840 Active 76 109688 Problem Chronic hepatitis C without hepatic coma B18.2 Active 313195422 Problem Cannabis abuse F12.10 Active 62014 009 Problem Bipolar disorder, in partial remission, most rec ent episode hypomanic F31.71 Active 112394525 Problem Attention deficit hyperactivity disorder (ADHD), combi luciano type F90.2 Active 79573264 Problem Bipolar 1 disorder F31.9 Active 3 60641557 Problem H/O laminectomy Z98.89 Active 1616 92855 Problem Other chronic pain G89.29 Active 8 8313846 Problem Anxiety disorder, unspecified type F41.9 Active 213711256 ALLERGIES No Information ENCOUNTERS Encounter Location Date Diagnosis [facility] [address] [facility] [id number] [address] [place] [phone] Oct, [facility] [address] [facility] [id number] [address] [place] [phone] Aug, Bipolar disorder, in partial remission, most recent episode hypomanic F31.71 ; Attention deficit hyperactivity disorder (ADHD), combined type F90.2 and Anxiety disorder, unspecified type F41.9 [facility] [address] [facility] [id number] [address] [place] [id number] Aug, [facility] [address] [facility] [id number] [address] [place] [phone] Aug, Bipolar disorder, in partial remission, most recent episode hypomanic F31.71 [facility] [address] [facility] [id number] [address] [place] [phone] Aug, [facility] [address] [id number] [address] [place] [phone] Aug, Bipolar disorder, in partial remission, most recent episode hypomanic F31.71 [facility] [address] [id number] [address] [place] [phone] Aug, Bipolar disorder, in partial remission, most recent episode hypomanic F31.71 ; Attention deficit hyperactivity disorder (ADHD), combined type F90.2 and Anxiety disorder, unspecified type F41.9 [facility] [address] [id number] [address] [place] [phone] Aug, Low back pain M54.5 and Pain in left wrist M25.532 [facility] [address] [id number] [address] [place] [phone] Aug, [facility] [address] [id number] [address] [place] [phone] Jun, [facility] [address] [facility] [id number] [address] [place] [phone] Apr, Bipolar disorder, in partial remission, most recent episode hypomanic F31.71 [facility] [address] [id number] [address] [place] [id number] Apr, [facility] [address] [id number] [address] [place] [id number] Apr, Bipolar disorder, in partial remission, most recent episode hypomanic F31.71 ; Attention deficit hyperactivity disorder (ADHD), combined type F90.2 ; Anxiety disorder, unspecified type F41.9 and Other half-way (current) 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 Z79.899 [facility] [address] [id number] [address] [place] [phone] Apr, Bipolar disorder, in partial remission, most recent episode hypomanic F31.71 [facility] [address] [id number] [address] [place] [phone] Apr, Bipolar disorder, in partial remission, most recent episode hypomanic F31.71 [facility] [address] [facility] [id number] [address] [place] [phone] Mar, [facility] [address] [id number] [address] [place] [phone] Mar, Bipolar disorder, in partial remission, most recent episode hypomanic F31.71 ; Encounter for immunization Z23 and Low back pain M54.5 [facility] [address] [id number] [address] [place] [phone] Mar, Bipolar disorder, in partial remission, most recent episode hypomanic F31.71 [facility] [address] [id number] [address] [place] [phone] Mar, Bipolar disorder, in partial remission, most recent episode hypomanic F31.71 [facility] [address] [facility] [id number] [address] [place] [address] Jan, Bipolar disorder, in partial remission, most recent episode hypomanic F31.71 [facility] [address] [facility] [id number] [address] [place] [phone] Jan, Bipolar disorder, in partial remission, most recent episode hypomanic F31.71 [facility] [address] [facility] [id number] [address] [place] [phone] Dec, Bipolar disorder, in partial remission, most recent episode hypomanic F31.71 [facility] [address] [facility] [id number] [address] [place] [phone] Dec, Bipolar disorder, in partial remission, most recent episode hypomanic F31.71 ; Attention deficit hyperactivity disorder (ADHD), combined type F90.2 ; Anxiety disorder, unspecified type F41.9 and Other half-way (current) 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 Z79.899 [facility] [address] [facility] [id number] [address] [place] [phone] Dec, Bipolar disorder, in partial remission, most recent episode hypomanic F31.71 [facility] [address] [facility] [id number] [address] [place] [phone] Dec, Bipolar disorder, in partial remission, most recent episode hypomanic F31.71 [facility] [address] [id number] [address] [place] [phone] October, Bipolar disorder, in partial remission, most recent episode hypomanic F31.71 [facility] [address] [id number] [address] [place] [phone] October, [facility] [address] [id number] [address] [place] [phone] October, [facility] [address] [id number] [address] [place] [phone] Oct, Bipolar disorder, in partial remission, most recent episode hypomanic F31.71 ; Attention deficit hyperactivity disorder (ADHD), combined type F90.2 ; Anxiety disorder, unspecified type F41.9 and Encounter for drug screening Z02.83 [facility] [address] [id number] [address] [place] [phone] Oct, Bipolar disorder, in partial remission, most recent episode hypomanic F31.71 [facility] [address] [id number] [address] [place] [phone] Oct, Bipolar disorder, in partial remission, most recent episode hypomanic F31.71 [facility] [address] [id number] [address] [place] [phone] Aug, Bipolar disorder, in partial remission, most recent episode hypomanic F31.71 [facility] [address] [id number] [address] [place] [address] Aug, Bipolar disorder, in partial remission, most recent episode hypomanic F31.71 [facility] [address] [id number] [address] [place] [address] Aug, Bipolar disorder, in partial remission, most recent episode hypomanic F31.71 [facility] [address] [id number] [address] [place] [address] Jul, Bipolar disorder, in partial remission, most recent episode hypomanic F31.71 ; Attention deficit hyperactivity disorder (ADHD), combined type F90.2 and Anxiety disorder, unspecified type F41.9 [facility] [address] [id number] [address] [place] [address] Jul, Bipolar disorder, in partial remission, most recent episode hypomanic F31.71 [facility] [address] [id number] [address] [place] [id number] Jun, Bipolar disorder, in partial remission, most recent episode hypomanic F31.71 [facility] [address] [id number] [address] [place] [phone] May, Bipolar disorder, in partial remission, most recent episode hypomanic F31.71 [facility] [address] [facility] [id number] [address] [place] [phone] May, Bipolar disorder, in partial remission, most recent episode hypomanic F31.71 [facility] [address] [facility] [id number] [address] [place] [phone] Apr, [facility] [address] [id number] [address] [place] [phone] Apr, Bipolar disorder, in partial remission, most recent episode hypomanic F31.71 ; Attention deficit hyperactivity disorder (ADHD), combined type F90.2 ; Anxiety disorder, unspecified type F41.9 and Cannabis abuse F12.10 [facility] [address] [id number] [address] [place] [phone] Apr, Attention deficit hyperactiv ity disorder (ADHD), combined type F90.2 [facility] [address] [id number] [address] [place] [phone] Mar, Attention deficit hyperactiv ity disorder (ADHD), combined type F90.2 [facility] [address] [facility] [id number] [address] [place] [id number] Mar, Anxiety disorder, unspecifie d type F41.9 [facility] [address] [facility] [id number] [address] [place] [phone] Jan, Attention deficit hyperactiv ity disorder (ADHD), combined type F90.2 [facility] [address] [facility] [id number] [address] [place] [phone] Jan, Anxiety disorder, unspecifie d type F41.9 [facility] [address] [facility] [id number] [address] [place] [phone] Jan, Other chronic pain G89.29 ; Chronic hepatitis C without hepatic coma B18.2 and Bipolar 1 disorder F31.9 [facility] [address] [facility] [id number] [address] [place] [phone] Dec, Attention deficit hyperactiv ity disorder (ADHD), combined type F90.2 [facility] [address] [facility] [id number] [address] [place] [phone] Dec, Bipolar disorder, in partial remission, most recent episode hypomanic F31.71 ; Attention deficit hyperactivity disorder (ADHD), combined type F90.2 and Anxiety disorder, unspecified type F41.9 [facility] [address] [facility] [id number] [address] [place] [address] Dec, Bipolar disorder, in partial remission, most recent episode hypomanic F31.71 ; Attention deficit hyperactivity disorder (ADHD), combined type F90.2 and Anxiety disorder, unspecified type F41.9 [facility] [address] [facility] [id number] [address] [place] [phone] Dec, Bipolar 1 disorder F31.9 and Attention deficit R41.840 [facility] [address] [facility] [id number] [address] [place] [address] Oct, Other chronic pain G89.29 ; Alopecia L65.9 and Screening, lipid Z13.220 [facility] [address] [facility] [id number] [address] [place] [phone] Oct, [facility] [address] [facility] [id number] [address] [place] [phone] Aug, [facility] [address] [facility] [id number] [address] [place] [phone] Aug, Eustachian tube dysfunction, right H69.81 ; Vertigo R42 and Other chronic pain G89.29 [facility] [address] [id number] [address] [place] [phone] Aug, [facility] [address] [id number] [address] [place] [phone] Jun, [facility] [address] [id number] [address] [place] [phone] Jun, Low back pain M54.5 and Othe r chronic pain G89.29 [facility] [address] [id number] [address] [place] [phone] Jun, [facility] [address] [id number] [address] [place] [phone] May, [facility] [address] [id number] [address] [place] [phone] Jan, [facility] [address] [id number] [address] [place] [phone] Dec, [facility] [address] [id number] [address] [place] [phone] Dec, [facility] [address] [id number] [address] [place] [address] Jun, [facility] [address] [id number] [address] [place] [phone] Apr, Eustachian tube dysfunction, unspecified laterality H69.80 ; Hot flashes N95.1 and Encounter for immunization Z23 [facility] [address] [id number] [address] [place] [phone] Jan, [facility] [address] [id number] [address] [place] [address] Jan, [facility] [address] [id number] [address] [place] [phone] Jan, [facility] [address] [id number] [address] [place] [phone] Jan, [facility] [address] [id number] [address] [place] [address] Jan, Encounter to establish care V65.8 ; Bipolar 1 disorder 296.7 ; Abdominal pain 789.00 ; Constipation 564.00 ; Hard of hearing 389.9 and Drug abuse 305.90 [facility] [address] [id number] [address] [place] [phone] Dec, [facility] [address] [id number] [address] [place] [phone] October, [facility] [address] [id number] [address] [place] [phone] October, [facility] [address] [id number] [address] [place] [phone] Oct, [facility] [address] [id number] [address] [place] [phone] Oct, [facility] [address] [id number] [address] [place] [phone] Oct, [facility] [address] [id number] [address] [place] [phone] Aug, [facility] [address] [id number] [address] [place] [phone] Aug, [facility] [address] [id number] [address] [place] [phone] Aug, [facility] [address] [id number] [address] [place] [phone] Aug, [facility] [address] [id number] [address] [place] [phone] Aug, [facility] [address] [id number] [address] [place] [phone] Aug, [facility] [address] [id number] [address] [place] [address], [place] [id number] Aug, 2014 [facility] [address] [id number] [address] [place] [address], [place] [id number] Aug, 2014 [facility] [address] [id number] [address] [place] [address], [place] [id number] Aug, 2014 [facility] [address] [id number] [address] [place] [address], [place] [id number] Aug, 2014 [facility] [address] [id number] [address] [place] [address], [place] [id number] Aug, 2014 [facility] [address] [id number] [address] [place] [address], [place] [id number] Aug, 2014 [facility] [address] [id number] [address] [place] [address], [place] [id number] Aug, 2014 [facility] [address] [id number] [address] [place] [address], [place] [id number] Aug, 2014 [facility] [address] [id number] [address] [place] [address], [place] [id number] Aug, [facility] [address] [id number] [address] [place] [address], [place] [id number] Jul, [facility] [address] [id number] [address] [place] [address], [place] [id number] Jul, [facility] [address] [id number] [address] [place] [address], [place] [id number] Jul, [facility] [address] [id number] [address] [place] [address], [place] [id number] Jul, [facility] [address] [id number] [address] [place] [address], [place] [id number] Jul, [facility] [address] [id number] [address] [place] [address], [place] [id number] Jul, [facility] [address] [id number] [address] [place] [address], [place] [id number] Jul, [facility] [address] [id number] [address] [place] [address], [place] [id number] Jul, [facility] [address] [id number] [address] [place] [address], [place] [id number] Jun, [facility] [address] [id number] [address] [place] [address], [place] [id number] Jun, [facility] [address] [id number] [address] [place] [address], [place] [id number] Jun, [facility] [address] [id number] [address] [place] [address], [place] [id number] Jun, [facility] [address] [id number] [address] [place] [address], [place] [id number] Jun, [facility] [address] [id number] [address] [place] [address], [place] [id number] Jun, [facility] [address] [id number] [address] [place] [address], [place] [id number] Jun, [facility] [address] [id number] [address] [place] [address], [place] [id number] Jun, [facility] [address] [id number] [address] [place] [address], [place] [id number] Jun, [facility] [address] [id number] [address] [place] [address], [place] [id number] Jun, [facility] [address] [id number] [address] [place] [address], [place] [id number] Jun, [facility] [address] [id number] [address] [place] [address], [place] [id number] May, [facility] [address] [id number] [address] [place] [address], [place] [id number] May, [facility] [address] [id number] [address] [place] [address], [place] [id number] May, [facility] [address] [id number] [address] [place] [address], [place] [id number] May, [facility] [address] [id number] [address] [place] [address], [place] [id number] May, [facility] [address] [id number] [address] [place] [address], [place] [id number] May, [facility] [address] [id number] [address] [place] [address], [place] [id number] May, [facility] [address] [id number] [address] [place] [address], [place] [id number] Apr, [facility] [address] [id number] [address] [place] [address], [place] [id number] Apr, [facility] [address] [id number] [address] [place] [address], [place] [id number] Apr, [facility] [address] [id number] [address] [place] [address], [place] [id number] Apr, [facility] [address] [id number] [address] [place] [address], [place] [id number] Apr, [facility] [address] [id number] [address] [place] [address], [place] [id number] Apr, [facility] [address] [id number] [address] [place] [address], [place] [id number] Mar, [facility] [address] [id number] [address] [place] [address], [place] [id number] 29 Mar, 2013 [facility] [address] [id number] [address] [place] [address], [place] [id number] 10 Mar, 2013 [facility] [address] [id number] [address] [place] [address], [place] [id number] 10 Mar, 2013 [facility] [address] [id number] [address] [place] [address], [place] [id number] Mar, 2013 [facility] [address] [id number] [address] [place] [address], [place] [id number] Mar, [facility] [address] [id number] [address] [place] [address], [place] [id number] Jan, [facility] [address] [id number] [address] [place] [address], [place] [id number] Jan, [facility] [address] [id number] [address] [place] [address], [place] [id number] Jan, [facility] [address] [id number] [address] [place] [address], [place] [id number] Jan, [facility] [address] [id number] [address] [place] [address], [place] [id number] Dec, [facility] [address] [id number] [address] [place] [address], [place] [id number] Dec, [facility] [address] [id number] [address] [place] [address], [place] [id number] Dec, [facility] [address] [id number] [address] [place] [address], [place] [id number] Dec, [facility] [address] [id number] [address] [place] [address], [place] [id number] Dec, [facility] [address] [id number] [address] [place] [address], [place] [id number] Dec, [facility] [address] [id number] [address] [place] [address], [place] [id number] Dec, [facility] [address] [id number] [address] [place] [address], [place] [id number] Dec, [facility] [address] [id number] [address] [place] [address], [place] [id number] Dec, [facility] [address] [id number] [address] [place] [address], [place] [id number] Dec, [facility] [address] [id number] [address] [place] [address], [place] [id number] Dec, [facility] [address] [id number] [address] [place] [address], [place] [id number] Dec, [facility] [address] [id number] [address] [place] [address], [place] [id number] October, [facility] [address] [id number] [address] [place] [address], [place] [id number] October, [facility] [address] [id number] [address] [place] [address], [place] [id number] October, [facility] [address] [id number] [address] [place] [address], [place] [id number] October, [facility] [address] [id number] [address] [place] [address], [place] [id number] October, [facility] [address] [id number] [address] [place] [address], [place] [id number] October, [facility] [address] [id number] [address] [place] [address], [place] [id number] Oct, [facility] [address] [id number] [address] [place] [address], [place] [id number] Oct, [facility] [address] [id number] [address] [place] [address], [place] [id number] Oct, [facility] [address] [id number] [address] [place] [address], [place] [id number] Oct, [facility] [address] [id number] [address] [place] [address], [place] [id number] Oct, [facility] [address] [address] [id number] [address] [place] [address], [place] [id number] Oct, [facility] [address] [id number] [address] [place] [address], [place] [id number] Oct, [facility] [address] [id number] [address] [place] [address], [place] [id number] Oct, [facility] [address] [id number] [address] [place] [address], [place] [id number] Oct, [facility] [address] [id number] [facility] [place] [id number] 09 Oct, 2013 [facility] [address] [id number] [facility] [place] [id number] Oct, [facility] [address] [id number] [address] [place] [address], [place] [id number] Oct, [facility] [address] [id number] [address] [place] [address], [place] [id number] Aug, [facility] [address] [id number] [address] [place] [address], [place] [id number] Aug, [facility] [address] [id number] [address] [place] [address], [place] [id number] Aug, [facility] [address] [id number] [address] [place] [address], [place] [id number] Aug, [facility] [address] [id number] [address] [place] [address], [place] [id number] Aug, [facility] [address] [id number] [address] [place] [address], [place] [id number] 05 Aug, 2013 [facility] [address] [id number] [address] [place] [address], [place] [id number] Aug, [facility] [address] [id number] [address] [place] [address], [place] [id number] Aug, [facility] [address] [id number] [address] [place] [address], [place] [id number] Aug, [facility] [address] [id number] [address] [place] [address], [place] [id number] Aug, [facility] [address] [id number] [address] [place] [address], [place] [id number] Aug, [facility] [address] [id number] [address] [place] [address], [place] [id number] Aug, [facility] [address] [id number] [address] [place] [address], [place] [id number] Aug, [facility] [address] [id number] [address] [place] [address], [place] [id number] 20 Aug, 2013 [facility] [address] [id number] [address] [place] [address], [place] [id number] 14 Aug, 2013 [facility] [address] [id number] [address] [place] [address], [place] [id number] 14 Aug, 2013 [facility] [address] [id number] [address] [place] [address], [place] [id number] 14 Aug, 2013 [facility] [address] [id number] [address] [place] [address], [place] [id number] 14 Aug, 2013 [facility] [address] [id number] [address] [place] [address], [place] [id number] 07 Aug, 2013 [facility] [address] [id number] [address] [place] [address], [place] [id number] 07 Aug, 2013 [facility] [address] [id number] [address] [place] [address], [place] [id number] 06 Aug, 2013 [facility] [address] [id number] [address] [place] [address], [place] [id number] 06 Aug, 2013 [facility] [address] [id number] [address] [place] [address], [place] [id number] 04 Aug, 2013 [facility] [address] [id number] [address] [place] [address], [place] [id number] 04 Aug, 2013 [facility] [address] [id number] [address] [place] [address], [place] [id number] Aug, [facility] [address] [id number] [address] [place] [address], [place] [id number] Jul, [facility] [address] [id number] [address] [place] [address], [place] [id number] Jul, [facility] [address] [id number] [address] [place] [address], [place] [id number] Jul, [facility] [address] [id number] [address] [place] [address], [place] [id number] Jul, [facility] [address] [id number] [address] [place] [address], [place] [id number] Jul, [facility] [address] [id number] [address] [place] [address], [place] [id number] Jul, [facility] [address] [id number] [address] [place] [address], [place] [id number] Jul, [facility] [address] [id number] [address] [place] [address], [place] [id number] Jul, [facility] [address] [id number] [address] [place] [address], [place] [id number] Jul, [facility] [address] [id number] [address] [place] [address], [place] [id number] Jul, [facility] [address] [id number] [address] [place] [address], [place] [id number] Jul, [facility] [address] [id number] [address] [place] [address], [place] [id number] Jul, [facility] [address] [id number] [address] [place] [address], [place] [id number] Jul, [facility] [address] [id number] [address] [place] [address], [place] [id number] Jul, [facility] [address] [id number] [address] [place] [address], [place] [id number] Jul, [facility] [address] [id number] [address] [place] [address], [place] [id number] Jul, [facility] [address] [id number] [address] [place] [address], [place] [id number] Jul, [facility] [address] [id number] [address] [place] [address], [place] [id number] Jul, [facility] [address] [id number] [address] [place] [address], [place] [id number] Jul, [facility] [address] [id number] [address] [place] [address], [place] [id number] Jul, [facility] [address] [id number] [address] [place] [address], [place] [id number] Jun, [facility] [address] [id number] [address] [place] [address], [place] [id number] Jun, [facility] [address] [id number] [address] [place] [address], [place] [id number] Jun, [facility] [address] [id number] [address] [place] [address], [place] [id number] Jun, [facility] [address] [id number] [address] [place] [address], [place] [id number] Jun, [facility] [address] [id number] [address] [place] [address], [place] [id number] Jun, [facility] [address] [id number] [address] [place] [address], [place] [id number] Jun, [facility] [address] [id number] [address] [place] [address], [place] [id number] Jun, [facility] [address] [id number] [address] [place] [address], [place] [id number] Jun, [facility] [address] [id number] [address] [place] [address], [place] [id number] Jun, [facility] [address] [id number] [address] [place] [address], [place] [id number] Jun, [facility] [address] [id number] [address] [place] [address], [place] [id number] Jun, [facility] [address] [id number] [address] [place] [address], [place] [id number] Jun, [facility] [address] [id number] [address] [place] [address], [place] [id number] Jun, [facility] [address] [id number] [address] [place] [address], [place] [id number] 20 Jun, 2013 [facility] [address] [id number] [address] [place] [address], [place] [id number] 18 Jun, 2013 [facility] [address] [id number] [address] [place] [address], [place] [id number] 18 Jun, 2013 [facility] [address] [id number] [address] [place] [address], [place] [id number] 17 Jun, 2013 [facility] [address] [id number] [address] [place] [address], [place] [id number] 17 Jun, 2013 [facility] [address] [id number] [address] [place] [address], [place] [id number] 13 Jun, 2013 [facility] [address] [id number] [address] [place] [address], [place] [id number] 12 Jun, 2013 [facility] [address] [id number] [address] [place] [address], [place] [id number] 12 Jun, 2013 [facility] [address] [id number] [address] [place] [address], [place] [id number] 09 Jun, 2013 [facility] [address] [id number] [address] [place] [address], [place] [id number] 05 Jun, 2013 [facility] [address] [id number] [address] [place] [address], [place] [id number] 05 Jun, 2013 [facility] [address] [id number] [address] [place] [address], [place] [id number] 04 Jun, 2013 [facility] [address] [id number] [address] [place] [address], [place] [id number] 04 Jun, 2013 [facility] [address] [id number] [address] [place] [address], [place] [id number] 17 May, 2013 [facility] [address] [id number] [address] [place] [address], [place] [id number] 17 May, 2013 [facility] [address] [id number] [address] [place] [address], [place] [id number] May, [facility] [address] [id number] [address] [place] [address], [place] [id number] May, [facility] [address] [id number] [address] [place] [address], [place] [id number] May, [facility] [address] [id number] [address] [place] [address], [place] [id number] May, [facility] [address] [id number] [address] [place] [address], [place] [id number] Apr, [facility] [address] [id number] [address] [place] [address], [place] [id number] Apr, [facility] [address] [id number] [address] [place] [address], [place] [id number] Apr, [facility] [address] [id number] [address] [place] [address], [place] [id number] Apr, [facility] [address] [id number] [address] [place] [address], [place] [id number] Apr, [facility] [address] [id number] [address] [place] [address], [place] [id number] Apr, [facility] [address] [id number] [address] [place] [address], [place] [id number] Apr, [facility] [address] [id number] [address] [place] [address], [place] [id number] Apr, [facility] [address] [id number] [address] [place] [address], [place] [id number] 26 Mar, 2013 [facility] [address] [id number] [address] [place] [address] [id number] 24 Sep2012 [facility] [address] [id number] [address] [place] [address], [place] [id number] 17 Mar, 2013 [facility] [address] [id number] [address] [place] [address], [place] [id number] 17 Mar, 2013 [facility] [address] [id number] [address] [place] [id number] [place] [id number] 11 Mar, 2013 [facility] [address] [id number] [address] [place] [address], [place] [id number] 10 Mar, 2013 [facility] [address] [id number] [address] [place] [address], [place] [id number] 05 Mar, 2013 [facility] [address] [id number] [address] [place] [address], [place] [id number] 04 Mar, 2013 [facility] [address] [id number] [address] [place] [address], [place] [id number] 20 Jan, 2013 [facility] [address] [id number] [address] [place] [address], [place] [id number] Jan, [facility] [address] [id number] [address] [place] [address], [place] [id number] 14 Jan, 2013 [facility] [address] [id number] [address] [place] [address], [place] [id number] Jan, [facility] [address] [id number] [address] [place] [address], [place] [id number] Jan, [facility] [address] [id number] [address] [place] [address], [place] [id number] Jan, [facility] [address] [id number] [address] [place] [address], [place] [id number] Dec, [facility] [address] [id number] [address] [place] [address], [place] [id number] Dec, [facility] [address] [id number] [address] [place] [address], [place] [id number] Dec, [facility] [address] [id number] [address] [place] [address], [place] [id number] Dec, [facility] [address] [id number] [address] [place] [address], [place] [id number] Dec, [facility] [address] [id number] [address] [place] [address], [place] [id number] 17 Dec, 2012 [facility] [address] [id number] [address] [place] [address], [place] [id number] 16 Dec, 2012 [facility] [address] [id number] [address] [place] [address], [place] [id number] 16 Dec, 2012 [facility] [address] [id number] [address] [place] [address], [place] [id number] 15 Dec, 2012 [facility] [address] [id number] [address] [place] [address], [place] [id number] 10 Dec, 2012 [facility] [address] [id number] [address] [place] [address], [place] [id number] 28 Dec, 2012 [facility] [address] [id number] [address] [place] [address], [place] [id number] Dec, [facility] [address] [id number] [address] [place] [address], [place] [id number] Dec, [facility] [address] [id number] [address] [place] [address], [place] [id number] Dec, [facility] [address] [id number] [address] [place] [address], [place] [id number] Dec, [facility] [address] [id number] [address] [place] [address], [place] [id number] Dec, [facility] [address] [id number] [address] [place] [address], [place] [id number] October, [facility] [address] [id number] [address] [place] [address], [place] [id number] October, [facility] [address] [id number] [address] [place] [address], [place] [id number] October, [facility] [address] [id number] [address] [place] [address], [place] [id number] October, [facility] [address] [id number] [address] [place] [address], [place] [id number] October, [facility] [address] [id number] [address] [place] [address], [place] [id number] October, [facility] [address] [id number] [address] [place] [address], [place] [id number] October, [facility] [address] [id number] [address] [place] [address], [place] [id number] Oct, [facility] [address] [id number] [address] [place] [address], [place] [id number] Oct, [facility] [address] [id number] [address] [place] [address], [place] [id number] Oct, [facility] [address] [id number] [address] [place] [address], [place] [id number] Oct, [facility] [address] [id number] [address] [place] [address], [place] [id number] Oct, [facility] [address] [id number] [address] [place] [address], [place] [id number] Oct, [facility] [address] [id number] [address] [place] [address], [place] [id number] Oct, [facility] [address] [id number] [address] [place] [address], [place] [id number] 15 Oct, 2012 [facility] [address] [id number] [address] [place] [address], [place] [id number] Oct, [facility] [address] [id number] [address] [place] [address], [place] [id number] Oct, [facility] [address] [id number] [address] [place] [address], [place] [id number] Oct, [facility] [address] [id number] [address] [place] [address], [place] [id number] Oct, [facility] [address] [id number] [address] [place] [address], [place] [id number] Aug, [facility] [address] [id number] [address] [place] [address], [place] [id number] Aug, [facility] [address] [id number] [address] [place] [address], [place] [id number] 12 Aug, 2012 [facility] [address] [id number] [address] [place] [address], [place] [id number] 06 Aug, 2012 [facility] [address] [id number] [address] [place] [address], [place] [id number] 05 Aug, 2012 [facility] [address] [id number] [address] [place] [address], [place] [id number] 05 Aug, 2012 [facility] [address] [id number] [address] [place] [address], [place] [id number] 20 Aug, 2012 [facility] [address] [id number] [address] [place] [address], [place] [id number] 14 Aug, 2012 [facility] [address] [id number] [address] [place] [address], [place] [id number] 12 Aug, 2012 [facility] [address] [id number] [address] [place] [address], [place] [id number] Aug, [facility] [address] [id number] [address] [place] [address], [place] [id number] Jul, [facility] [address] [id number] [address] [place] [address], [place] [id number] Jul, [facility] [address] [id number] [address] [place] [address], [place] [id number] Jul, [facility] [address] [id number] [address] [place] [address], [place] [id number] Jun, [facility] [address] [id number] [address] [place] [address], [place] [id number] Jun, [facility] [address] [id number] [address] [place] [address], [place] [id number] Jun, [facility] [address] [id number] [address] [place] [address], [place] [id number] Jun, [facility] [address] [id number] [address] [place] [address], [place] [id number] Jun, [facility] [address] [id number] [address] [place] [address], [place] [id number] 14 Jun, 2012 [facility] [address] [id number] [address] [place] [address], [place] [id number] 14 Jun, 2012 [facility] [address] [id number] [address] [place] [address], [place] [id number] 13 Jun, 2012 [facility] [address] [id number] [address] [place] [address], [place] [id number] 13 Jun, 2012 [facility] [address] [id number] [address] [place] [address], [place] [id number] 11 Jun, 2012 [facility] [address] [id number] [address] [place] [address], [place] [id number] 11 Jun, 2012 [facility] [address] [id number] [address] [place] [address], [place] [id number] 11 Jun, 2012 [facility] [address] [id number] [address] [place] [address], [place] [id number] 11 Jun, 2012 [facility] [address] [id number] [address] [place] [address], [place] [id number] 07 Jun, 2012 [facility] [address] [id number] [address] [place] [address], [place] [id number] 07 Jun, 2012 [facility] [address] [id number] [address] [place] [address], [place] [id number] 06 Jun, 2012 [facility] [address] [id number] [address] [place] [address], [place] [id number] 06 Jun, 2012 [facility] [address] [id number] [address] [place] [address], [place] [id number] Jun, [facility] [address] [id number] [address] [place] [address], [place] [id number] 06 Jun, 2012 [facility] [address] [id number] [address] [place] [address], [place] [id number] 05 Jun, 2012 [facility] [address] [id number] [address] [place] [address], [place] [id number] Jun, [facility] [address] [id number] [address] [place] [address], [place] [id number] Jun, [facility] [address] [id number] [address] [place] [address], [place] [id number] Jun, [facility] [address] [id number] [address] [place] [address], [place] [id number] May, [facility] [address] [id number] [address] [place] [address], [place] [id number] May, [facility] [address] [id number] [address] [place] [address], [place] [id number] May, [facility] [address] [id number] [address] [place] [address], [place] [id number] May, [facility] [address] [id number] [address] [place] [address], [place] [id number] May, [facility] [address] [id number] [address] [place] [address], [place] [id number] May, [facility] [address] [id number] [address] [place] [address], [place] [id number] May, [facility] [address] [id number] [address] [place] [address], [place] [id number] May, [facility] [address] [id number] [address] [place] [address], [place] [id number] Apr, [facility] [address] [id number] [address] [place] [id number] Apr, [facility] [address] [id number] [address] [place] [address], [place] [id number] Apr, [facility] [address] [id number] [address] [place] [address], [place] [id number] Apr, [facility] [address] [id number] [address] [place] [id number] Apr, [facility] [address] [id number] [address] [place] [address], [place] [id number] Apr, [facility] [address] [id number] [address] [place] [address], [place] [id number] Apr, [facility] [address] [id number] [address] [place] [address], [place] [id number] Apr, [facility] [address] [id number] [address] [place] [address], [place] [id number] Apr, [facility] [address] [id number] [address] [place] [address], [place] [id number] Apr, [facility] [address] [id number] [address] [place] [address], [place] [id number] Apr, [facility] [address] [id number] [address] [place] [address], [place] [id number] Apr, [facility] [address] [id number] [address] [place] [address], [place] [id number] Mar, [facility] [address] [id number] [address] [place] [address], [place] [id number] 18 Mar, 2012 [facility] [address] [id number] [address] [place] [id number] Mar, [facility] [facility] [address] [id number] [address] [place] [id number] Mar, [facility] [address] [id number] [address] [place] [id number] Mar, [facility] [address] [id number] [address] [place] [id number] Mar, [facility] [address] [id number] [address] [place] [address], [place] [id number] Mar, [facility] [address] [id number] [address] [place] [address], [place] [id number] Jan, [facility] [address] [id number] [address] [place] [phone] Jan, [facility] [address] [id number] [facility] [id number] Jan, [facility] [address] [id number] [facility] [id number] Jan, [facility] [address] [id number] [address] [place] [address], [place] [id number] Jan, [facility] [address] [id number] [address] [place] [address], [place] [id number] Jan, [facility] [address] [id number] [address] [place] [address], [place] [id number] Jan, [facility] [address] [id number] [address] [place] [address], [place] [id number] Jan, [facility] [address] [id number] [address] [place] [address], [place] [id number] Jan, [facility] [address] [id number] [address] [place] [address], [place] [id number] Jan, [facility] [address] [id number] [address] [place] [address], [place] [id number] Jan, [facility] [address] [id number] [address] [place] [address], [place] [id number] Dec, [facility] [address] [id number] [address] [place] [address], [place] [id number] Dec, [facility] [address] [id number] [address] [place] [address], [place] [id number] Dec, [facility] [address] [id number] [address] [place] [address], [place] [id number] Dec, [facility] [address] [id number] [address] [place] [address], [place] [id number] Dec, [facility] [address] [id number] [address] [place] [address], [place] [id number] Dec, [facility] [address] [id number] [address] [place] [address] [place] [id number] 18 Jan, 2012 [facility] [address] [id number] [address] [place] [address], [place] [id number] 17 Jan, 2012 [facility] [address] [id number] [address] [place] [address], [place] [id number] 16 Jan, 2012 [facility] [address] [id number] [address] [place] [address], [place] [id number] 13 Jan, 2012 [facility] [address] [id number] [address] [place] [address], [place] [id number] 13 Jan, 2012 [facility] [address] [id number] [address] [place] [address], [place] [id number] 02 Jan, 2012 [facility] [address] [id number] [address] [place] [address], [place] [id number] Dec, [facility] [address] [id number] [address] [place] [address], [place] [id number] Dec, [facility] [address] [id number] [address] [place] [address], [place] [id number] Dec, [facility] [address] [id number] [address] [place] [address], [place] [id number] Dec, [facility] [address] [id number] [address] [place] [address], [place] [id number] 15 Dec, 2011 [facility] [address] [id number] [address] [place] [address], [place] [id number] Dec, [facility] [address] [id number] [address] [place] [address], [place] [id number] Dec, [facility] [address] [id number] [address] [place] [address], [place] [id number] October, [facility] [address] [id number] [address] [place] [address], [place] [id number] October, [facility] [address] [id number] [address] [place] [address], [place] [id number] October, [facility] [address] [id number] [address] [place] [address], [place] [id number] October, [facility] [address] [id number] [address] [place] [address], [place] [id number] October, [facility] [address] [id number] [address] [place] [address], [place] [id number] October, [facility] [address] [id number] [address] [place] [address], [place] [id number] Oct, [facility] [address] [id number] [address] [place] [address], [place] [id number] 24 Oct, 2011 [facility] [address] [id number] [address] [place] [address], [place] [id number] Oct, [facility] [address] [id number] [address] [place] [address], [place] [id number] Oct, [facility] [address] [id number] [address] [place] [address], [place] [id number] Oct, [facility] [address] [id number] [address] [place] [address], [place] [id number] Oct, [facility] [address] [id number] [address] [place] [address], [place] [id number] Oct, [facility] [address] [id number] [address] [place] [address], [place] [id number] Aug, [facility] [address] [id number] [address] [place] [address], [place] [id number] 29 Sep, 2011 [facility] [address] [id number] [address] [place] [address], [place] [id number] 19 Sep, 2011 [facility] [address] [id number] [address] [place] [address], [place] [id number] 13 Sep, 2011 [facility] [address] [id number] [address] [place] [address], [place] [id number] 05 Sep, 2011 [facility] [address] [id number] [address] [place] [address], [place] [id number] Aug, [facility] [address] [id number] [address] [place] [address], [place] [id number] Aug, [facility] [address] [id number] [address] [place] [address], [place] [id number] Aug, [facility] [address] [id number] [address] [place] [address], [place] [id number] Aug, [facility] [address] [id number] [address] [place] [address], [place] [id number] Jul, [facility] [address] [id number] [address] [place] [address], [place] [id number] Jul, [facility] [address] [id number] [address] [place] [address], [place] [id number] Jul, [facility] [address] [id number] [address] [place] [address], [place] [id number] Jul, [facility] [address] [id number] [address] [place] [address], [place] [id number] Jun, [facility] [address] [id number] [address] [place] [address], [place] [id number] Jun, [facility] [address] [id number] [address] [place] [address], [place] [id number] May, [facility] [address] [id number] [address] [place] [address], [place] [id number] May, [facility] [address] [id number] [address] [place] [address], [place] [id number] May, [facility] [address] [id number] [address] [place] [address], [place] [id number] May, [facility] [address] [id number] [address] [place] [address], [place] [id number] 07 May, 2011 [facility] [address] [id number] [address] [place] [address], [place] [id number] Apr, [facility] [address] [id number] [address] [place] [id number] Apr, [facility] [address] [id number] [address] [place] [id number] Apr, [facility] [address] [id number] [address] [place] [phone] Jan, [facility] [address] [id number] [address] [place] [id number] Dec, [facility] [address] [id number] [address] [place] [id number] October, [facility] [address] [id number] [address] [place] [id number] Jun, [facility] [address] [id number] [address] [place] [phone] Apr, [facility] [address] [id number] [address] [place] [phone] Apr, [facility] [address] [id number] [address] [place] [id number] Apr, [facility] [address] [id number] [address] [place] [phone] Jun, IMMUNIZATIONS No Known Immunizations SOCIAL HISTORY Never Assessed REASON FOR VISIT [facility] [place] CARE VITAL SIGNS MEDICATIONS Unknown Medications RESULTS No Results PROCEDURES No Known procedures INSTRUCTIONS MEDICATIONS ADMINISTERED No Known Medications MEDICAL (GENERAL) HISTORY Type Description Date Medical History Psychiatric disorder Medical History Hard of hearing Surgical History Neofibrous tumor Surgical History back injection Hospitalization History Intestinal blockage Hospitalization History past psychiatric hospitalizations x2
--- OUTSIDE RECORDS SUMMARY | 2020-01-25 12:54 | XMS REPORT ---
Author Author Ana Mayer Doctor Organization [facility] Address Unknown Phone Unavailable Care Team Providers Care Aitchbone Breaker Name Role Phone Migration, Doctor Unavailable Unavailable PROBLEMS Type Condition ICD9-CM Code [id number] Code Onset Dates Condition S tatus SNOMED Code Problem Attention deficit R41.840 Active 76 780141 Problem Chronic hepatitis C without hepatic coma B18.2 Active 417962734 Problem Cannabis abuse F12.10 Active 38890 009 Problem Bipolar disorder, in partial remission, most rec ent episode hypomanic F31.71 Active 825260567 Problem Attention deficit hyperactivity disorder (ADHD), combi luciano type F90.2 Active 97449860 Problem Bipolar 1 disorder F31.9 Active 3 67857505 Problem H/O laminectomy Z98.89 Active 1616 50515 Problem Other chronic pain G89.29 Active 8 8653155 Problem Anxiety disorder, unspecified type F41.9 Active [id number] ALLERGIES No Information ENCOUNTERS Encounter Location Date Diagnosis [facility] [address] [facility] [id number] [address] [place] [phone] Oct, [facility] [address] [facility] [id number] [address] [place] [address] Aug, Bipolar disorder, in partial remission, most recent episode hypomanic F31.71 ; Attention deficit hyperactivity disorder (ADHD), combined type F90.2 and Anxiety disorder, unspecified type F41.9 [facility] [address] [facility] [id number] [address] [place] [id number] Aug, [facility] [address] [facility] [id number] [address] [place] [address] Aug, Bipolar disorder, in partial remission, most recent episode hypomanic F31.71 [facility] [address] [facility] [id number] [address] [place] [address] Aug, [facility] [address] [id number] [address] [place] [address] Aug, Bipolar disorder, in partial remission, most recent episode hypomanic F31.71 [facility] [address] [id number] [address] [place] [id number] Aug, Bipolar disorder, in partial remission, most recent episode hypomanic F31.71 ; Attention deficit hyperactivity disorder (ADHD), combined type F90.2 and Anxiety disorder, unspecified type F41.9 [facility] [address] [id number] [address] [place] [id number] Aug, Low back pain M54.5 and Pain in left wrist M25.532 [facility] [address] [id number] [address] [place] [id number] Aug, [facility] [address] [id number] [address] [place] [address] Jun, [facility] [address] [facility] [id number] [address] [place] [id number] Apr, Bipolar disorder, in partial remission, most recent episode hypomanic F31.71 [facility] [address] [id number] [address] [place] [address] Apr, [facility] [address] [id number] [address] [place] [address] Apr, Bipolar disorder, in partial remission, most recent episode hypomanic F31.71 ; Attention deficit hyperactivity disorder (ADHD), combined type F90.2 ; Anxiety disorder, unspecified type F41.9 and Other group home (current) 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 Z79.899 [facility] [address] [id number] [address] [place] [address] Apr, Bipolar disorder, in partial remission, most recent episode hypomanic F31.71 [facility] [address] [id number] [address] [place] [id number] Apr, Bipolar disorder, in partial remission, most recent episode hypomanic F31.71 [facility] [address] [facility] [id number] [address] [place] [id number] Mar, [facility] [address] [id number] [address] [place] [address] Mar, Bipolar disorder, in partial remission, most recent episode hypomanic F31.71 ; Encounter for immunization Z23 and Low back pain M54.5 [facility] [address] [id number] [address] [place] [id number] Mar, Bipolar disorder, in partial remission, most recent episode hypomanic F31.71 [facility] [address] [id number] [address] [place] [address] Mar, Bipolar disorder, in partial remission, most recent episode hypomanic F31.71 [facility] [address] [facility] [id number] [address] [place] [address] Jan, Bipolar disorder, in partial remission, most recent episode hypomanic F31.71 [facility] [address] [facility] [id number] [address] [place] [address] Jan, Bipolar disorder, in partial remission, most recent episode hypomanic F31.71 [facility] [address] [facility] [id number] [address] [place] [address] Dec, Bipolar disorder, in partial remission, most recent episode hypomanic F31.71 [facility] [address] [facility] [id number] [address] [place] [address] Dec, Bipolar disorder, in partial remission, most recent episode hypomanic F31.71 ; Attention deficit hyperactivity disorder (ADHD), combined type F90.2 ; Anxiety disorder, unspecified type F41.9 and Other group home (current) 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 Z79.899 [facility] [address] [facility] [id number] [address] [place] [address] Dec, Bipolar disorder, in partial remission, most recent episode hypomanic F31.71 [facility] [address] [facility] [id number] [address] [place] [address] Dec, Bipolar disorder, in partial remission, most recent episode hypomanic F31.71 [facility] [address] [id number] [address] [place] [address] October, Bipolar disorder, in partial remission, most recent episode hypomanic F31.71 [facility] [address] [id number] [address] [place] [address] October, [facility] [address] [id number] [address] [place] [id number] October, [facility] [address] [id number] [address] [place] [address] Oct, Bipolar disorder, in partial remission, most recent episode hypomanic F31.71 ; Attention deficit hyperactivity disorder (ADHD), combined type F90.2 ; Anxiety disorder, unspecified type F41.9 and Encounter for drug screening Z02.83 [facility] [address] [id number] [address] [place] [id number] Oct, Bipolar disorder, in partial remission, most recent episode hypomanic F31.71 [facility] [address] [id number] [address] [place] [phone] Oct, Bipolar disorder, in partial remission, most recent episode hypomanic F31.71 [facility] [address] [id number] [address] [place] [phone] Aug, Bipolar disorder, in partial remission, most recent episode hypomanic F31.71 [facility] [address] [id number] [address] [place] [id number] Aug, Bipolar disorder, in partial remission, most recent episode hypomanic F31.71 [facility] [address] [id number] [address] [place] [id number] Aug, Bipolar disorder, in partial remission, most recent episode hypomanic F31.71 [facility] [address] [id number] [address] [place] [id number] Jul, Bipolar disorder, in partial remission, most recent episode hypomanic F31.71 ; Attention deficit hyperactivity disorder (ADHD), combined type F90.2 and Anxiety disorder, unspecified type F41.9 [facility] [address] [id number] [address] [place] [id number] Jul, Bipolar disorder, in partial remission, most recent episode hypomanic F31.71 [facility] [address] [id number] [address] [place] [id number] Jun, Bipolar disorder, in partial remission, most recent episode hypomanic F31.71 [facility] [address] [id number] [address] [place] [phone] May, Bipolar disorder, in partial remission, most recent episode hypomanic F31.71 [facility] [address] [facility] [id number] [address] [place] [phone] May, Bipolar disorder, in partial remission, most recent episode hypomanic F31.71 [facility] [address] [facility] [id number] [address] [place] [phone] Apr, [facility] [address] [id number] [address] [place] [phone] Apr, Bipolar disorder, in partial remission, most recent episode hypomanic F31.71 ; Attention deficit hyperactivity disorder (ADHD), combined type F90.2 ; Anxiety disorder, unspecified type F41.9 and Cannabis abuse F12.10 [facility] [address] [id number] [address] [place] [id number] Apr, Attention deficit hyperactiv ity disorder (ADHD), combined type F90.2 [facility] [address] [id number] [address] [place] [phone] Mar, Attention deficit hyperactiv ity disorder (ADHD), combined type F90.2 [facility] [address] [facility] [id number] [address] [place] [phone] Mar, Anxiety disorder, unspecifie d type F41.9 [facility] [address] [facility] [id number] [address] [place] [phone] Jan, Attention deficit hyperactiv ity disorder (ADHD), combined type F90.2 [facility] [address] [facility] [id number] [address] [place] [phone] Jan, Anxiety disorder, unspecifie d type F41.9 [facility] [address] [facility] [id number] [address] [place] [address] Jan, Other chronic pain G89.29 ; Chronic hepatitis C without hepatic coma B18.2 and Bipolar 1 disorder F31.9 [facility] [address] [facility] [id number] [address] [place] [phone] Dec, Attention deficit hyperactiv ity disorder (ADHD), combined type F90.2 [facility] [address] [facility] [id number] [address] [place] [phone] Dec, Bipolar disorder, in partial remission, most recent episode hypomanic F31.71 ; Attention deficit hyperactivity disorder (ADHD), combined type F90.2 and Anxiety disorder, unspecified type F41.9 [facility] [address] [facility] [id number] [address] [place] [phone] Dec, Bipolar disorder, in partial remission, most recent episode hypomanic F31.71 ; Attention deficit hyperactivity disorder (ADHD), combined type F90.2 and Anxiety disorder, unspecified type F41.9 [facility] [address] [facility] [id number] [address] [place] [phone] Dec, Bipolar 1 disorder F31.9 and Attention deficit R41.840 [facility] [address] [facility] [id number] [address] [place] [phone] Oct, Other chronic pain G89.29 ; Alopecia L65.9 and Screening, lipid Z13.220 [facility] [address] [facility] [id number] [address] [place] [phone] Oct, [place] [address] [facility] [id number] [address] [place] [phone] Aug, [facility] [address] [facility] [id number] [address] [place] [id number] Aug, Eustachian tube dysfunction, right H69.81 ; Vertigo R42 and Other chronic pain G89.29 [facility] [address] [id number] [address] [place] [phone] Aug, [facility] [address] [id number] [address] [place] [address] Jun, [facility] [address] [id number] [address] [place] [address] Jun, Low back pain M54.5 and Othe r chronic pain G89.29 [facility] [address] [id number] [address] [place] [phone] Jun, [facility] [address] [id number] [address] [place] [id number] May, [facility] [address] [id number] [address] [place] [id number] Jan, [facility] [address] [id number] [address] [place] [phone] Dec, [facility] [address] [id number] [address] [place] [id number] Dec, [facility] [address] [id number] [address] [place] [id number] Jun, [facility] [address] [id number] [address] [place] [phone] Apr, Eustachian tube dysfunction, unspecified laterality H69.80 ; Hot flashes N95.1 and Encounter for immunization Z23 [facility] [address] [id number] [address] [place] [phone] Jan, [facility] [address] [id number] [address] [place] [id number] Jan, [facility] [address] [id number] [address] [place] [id number] Jan, [facility] [address] [id number] [address] [place] [phone] Jan, [facility] [address] [id number] [address] [place] [phone] Jan, Encounter to establish care V65.8 ; Bipolar 1 disorder 296.7 ; Abdominal pain 789.00 ; Constipation 564.00 ; Hard of hearing 389.9 and Drug abuse 305.90 [facility] [address] [id number] [address] [place] [id number] Dec, [facility] [address] [id number] [address] [place] [id number] October, [facility] [address] [id number] [address] [place] [id number] October, [facility] [address] [id number] [address] [place] [phone] Oct, [facility] [address] [id number] [address] [place] [phone] Oct, [facility] [address] [id number] [address] [place] [phone] Oct, [facility] [address] [id number] [address] [place] [id number] Aug, [facility] [address] [id number] [address] [place] [phone] Aug, [facility] [address] [id number] [address] [place] [id number] Aug, [facility] [address] [id number] [address] [place] [id number] Aug, [facility] [address] [id number] [address] [place] [id number] Aug, [facility] [address] [id number] [address] [place] [phone] Aug, [facility] [address] [id number] [address] [place] [address], [place] [address] Aug, 2014 [facility] [address] [id number] [address] [place] [address], [place] [address] Aug, 2014 [facility] [address] [id number] [address] [place] [address], [place] [address] Aug, 2014 [facility] [address] [id number] [address] [place] [address], [place] [address] Aug, 2014 [facility] [address] [id number] [address] [place] [address], [place] [address] Aug, 2014 [facility] [address] [id number] [address] [place] [address], [place] [address] Aug, 2014 [facility] [address] [id number] [address] [place] [address], [place] [address] Aug, 2014 [facility] [address] [id number] [address] [place] [address], [place] [address] Aug, 2014 [facility] [address] [id number] [address] [place] [address], [place] [address] Aug, [facility] [address] [id number] [address] [place] [address], [place] [address] Jul, [facility] [address] [id number] [address] [place] [address], [place] [address] Jul, [facility] [address] [id number] [address] [place] [address], [place] [address] Jul, [facility] [address] [id number] [address] [place] [address], [place] [address] Jul, [facility] [address] [id number] [address] [place] [address], [place] [address] Jul, [facility] [address] [id number] [address] [place] [address], [place] [address] Jul, [facility] [address] [id number] [address] [place] [address], [place] [address] Jul, [facility] [address] [id number] [address] [place] [address], [place] [address] Jul, [facility] [address] [id number] [address] [place] [address], [place] [address] Jun, [facility] [address] [id number] [address] [place] [address], [place] [address] Jun, [facility] [address] [id number] [address] [place] [address], [place] [address] Jun, [facility] [address] [id number] [address] [place] [address], [place] [address] Jun, [facility] [address] [id number] [address] [place] [address], [place] [address] Jun, [facility] [address] [id number] [address] [place] [address], [place] [address] Jun, [facility] [address] [id number] [address] [place] [address], [place] [address] Jun, [facility] [address] [id number] [address] [place] [address], [place] [address] Jun, [facility] [address] [id number] [address] [place] [address], [place] [address] Jun, [facility] [address] [id number] [address] [place] [address], [place] [address] Jun, [facility] [address] [id number] [address] [place] [address], [place] [address] Jun, [facility] [address] [id number] [address] [place] [address], [place] [address] May, [facility] [address] [id number] [address] [place] [address], [place] [address] May, [facility] [address] [id number] [address] [place] [address], [place] [address] May, [facility] [address] [id number] [address] [place] [address], [place] [address] May, [facility] [address] [id number] [address] [place] [address], [place] [address] May, [facility] [address] [id number] [address] [place] [address], [place] [address] May, [facility] [address] [id number] [address] [place] [address], [place] [address] May, [facility] [address] [id number] [address] [place] [address], [place] [address] Apr, [facility] [address] [id number] [address] [place] [address], [place] [address] Apr, [facility] [address] [id number] [address] [place] [address], [place] [address] Apr, [facility] [address] [id number] [address] [place] [address], [place] [address] Apr, [facility] [address] [id number] [address] [place] [address], [place] [address] Apr, [facility] [address] [id number] [address] [place] [address], [place] [address] Apr, [facility] [address] [id number] [address] [place] [address], [place] [address] Mar, [facility] [address] [id number] [address] [place] [address], [place] [address] 29 Mar, 2013 [facility] [address] [id number] [address] [place] [address], [place] [address] 10 Mar, 2013 [facility] [address] [id number] [address] [place] [address], [place] [address] 10 Mar, 2013 [facility] [address] [id number] [address] [place] [address], [place] [address] Mar, 2013 [facility] [address] [id number] [address] [place] [address], [place] [address] Mar, [facility] [address] [id number] [address] [place] [address], [place] [address] Jan, [facility] [address] [id number] [address] [place] [address], [place] [address] Jan, [facility] [address] [id number] [address] [place] [address], [place] [address] Jan, [facility] [address] [id number] [address] [place] [address], [place] [address] Jan, [facility] [address] [id number] [address] [place] [address], [place] [address] Dec, [facility] [address] [id number] [address] [place] [address], [place] [address] Dec, [facility] [address] [id number] [address] [place] [address], [place] [address] Dec, [facility] [address] [id number] [address] [place] [address], [place] [address] Dec, [facility] [address] [id number] [address] [place] [address], [place] [address] Dec, [facility] [address] [id number] [address] [place] [address], [place] [address] Dec, [facility] [address] [id number] [address] [place] [address], [place] [address] Dec, [facility] [address] [id number] [address] [place] [address], [place] [address] Dec, [facility] [address] [id number] [address] [place] [address], [place] [address] Dec, [facility] [address] [id number] [address] [place] [address], [place] [address] Dec, [facility] [address] [id number] [address] [place] [address], [place] [address] Dec, [facility] [address] [id number] [address] [place] [address], [place] [address] Dec, [facility] [address] [id number] [address] [place] [address], [place] [address] October, [facility] [address] [id number] [address] [place] [address], [place] [address] October, [facility] [address] [id number] [address] [place] [address], [place] [address] October, [facility] [address] [id number] [address] [place] [address], [place] [address] October, [facility] [address] [id number] [address] [place] [address], [place] [address] October, [facility] [address] [id number] [address] [place] [address], [place] [address] October, [facility] [address] [id number] [address] [place] [address], [place] [address] Oct, [facility] [address] [id number] [address] [place] [address], [place] [address] Oct, [facility] [address] [id number] [address] [place] [address], [place] [address] Oct, [facility] [address] [id number] [address] [place] [address], [place] [address] Oct, [facility] [address] [id number] [address] [place] [address], [place] [address] Oct, [facility] [address] [id number] [address] [place] [address], [place] [address] Oct, [facility] [address] [id number] [address] [place] [address], [place] [address] Oct, [facility] [address] [id number] [address] [place] [address], [place] [address] Oct, [facility] [address] [id number] [address] [place] [address], [place] [address] Oct, [facility] [address] [id number] [facility] [place] [address] 09 Oct, 2013 [facility] [address] [id number] [facility] [place] [address] Oct, [facility] [address] [id number] [address] [place] [address], [place] [address] Oct, [facility] [address] [id number] [address] [place] [address], [place] [address] Aug, [facility] [address] [id number] [address] [place] [address], [place] [address] Aug, [facility] [address] [id number] [address] [place] [address], [place] [address] Aug, [facility] [address] [id number] [address] [place] [address], [place] [address] Aug, [facility] [address] [id number] [address] [place] [address], [place] [address] Aug, [facility] [address] [id number] [address] [place] [address], [place] [address] 05 Aug, 2013 [facility] [address] [id number] [address] [place] [address], [place] [address] Aug, [facility] [address] [id number] [address] [place] [address], [place] [address] Aug, [facility] [address] [id number] [address] [place] [address], [place] [address] Aug, [facility] [address] [id number] [address] [place] [address], [place] [address] Aug, [facility] [address] [id number] [address] [place] [address], [place] [address] Aug, [facility] [address] [id number] [address] [place] [address], [place] [address] Aug, [facility] [address] [id number] [address] [place] [address], [place] [address] Aug, [facility] [address] [id number] [address] [place] [address], [place] [address] 20 Aug, 2013 [facility] [address] [id number] [address] [place] [address], [place] [address] 14 Aug, 2013 [facility] [address] [id number] [address] [place] [address], [place] [address] 14 Aug, 2013 [facility] [address] [id number] [address] [place] [address], [place] [address] 14 Aug, 2013 [facility] [address] [id number] [address] [place] [address], [place] [address] 14 Aug, 2013 [facility] [address] [id number] [address] [place] [address], [place] [address] 07 Aug, 2013 [facility] [address] [id number] [address] [place] [address], [place] [address] 07 Aug, 2013 [facility] [address] [id number] [address] [place] [address], [place] [address] 06 Aug, 2013 [facility] [address] [id number] [address] [place] [address], [place] [address] 06 Aug, 2013 [facility] [address] [id number] [address] [place] [address], [place] [address] 04 Aug, 2013 [facility] [address] [id number] [address] [place] [address], [place] [address] 04 Aug, 2013 [facility] [address] [id number] [address] [place] [address], [place] [address] Aug, [facility] [address] [id number] [address] [place] [address], [place] [address] Jul, [facility] [address] [id number] [address] [place] [address], [place] [address] Jul, [facility] [address] [id number] [address] [place] [address], [place] [address] Jul, [facility] [address] [id number] [address] [place] [address], [place] [address] Jul, [facility] [address] [id number] [address] [place] [address], [place] [address] Jul, [facility] [address] [id number] [address] [place] [address], [place] [address] Jul, [facility] [address] [id number] [address] [place] [address], [place] [address] Jul, [facility] [address] [id number] [address] [place] [address], [place] [address] Jul, [facility] [address] [id number] [address] [place] [address], [place] [address] Jul, [facility] [address] [id number] [address] [place] [address], [place] [address] Jul, [facility] [address] [id number] [address] [place] [address], [place] [address] Jul, [facility] [address] [id number] [address] [place] [address], [place] [address] Jul, [facility] [address] [id number] [address] [place] [address], [place] [address] Jul, [facility] [address] [id number] [address] [place] [address], [place] [address] Jul, [facility] [address] [id number] [address] [place] [address], [place] [address] Jul, [facility] [address] [id number] [address] [place] [address], [place] [address] Jul, [facility] [address] [id number] [address] [place] [address], [place] [address] Jul, [facility] [address] [id number] [address] [place] [address], [place] [address] Jul, [facility] [address] [id number] [address] [place] [address], [place] [address] Jul, [facility] [address] [id number] [address] [place] [address], [place] [address] Jul, [facility] [address] [id number] [address] [place] [address], [place] [address] Jun, [facility] [address] [id number] [address] [place] [address], [place] [address] Jun, [facility] [address] [id number] [address] [place] [address], [place] [address] Jun, [facility] [address] [id number] [address] [place] [address], [place] [address] Jun, [facility] [address] [id number] [address] [place] [address], [place] [address] Jun, [facility] [address] [id number] [address] [place] [address], [place] [address] Jun, [facility] [address] [id number] [address] [place] [address], [place] [address] Jun, [facility] [address] [id number] [address] [place] [address], [place] [address] Jun, [facility] [address] [id number] [address] [place] [address], [place] [address] Jun, [facility] [address] [id number] [address] [place] [address], [place] [address] Jun, [facility] [address] [id number] [address] [place] [address], [place] [address] Jun, [facility] [address] [id number] [address] [place] [address], [place] [address] Jun, [facility] [address] [id number] [address] [place] [address], [place] [address] Jun, [facility] [address] [id number] [address] [place] [address], [place] [address] Jun, [facility] [address] [id number] [address] [place] [address], [place] [address] 20 Jun, 2013 [facility] [address] [id number] [address] [place] [address], [place] [address] 18 Jun, 2013 [facility] [address] [id number] [address] [place] [address], [place] [address] 18 Jun, 2013 [facility] [address] [id number] [address] [place] [address], [place] [address] 17 Jun, 2013 [facility] [address] [id number] [address] [place] [address], [place] [address] 17 Jun, 2013 [facility] [address] [id number] [address] [place] [address], [place] [address] 13 Jun, 2013 [facility] [address] [id number] [address] [place] [address], [place] [address] 12 Jun, 2013 [facility] [address] [id number] [address] [place] [address], [place] [address] 12 Jun, 2013 [facility] [address] [id number] [address] [place] [address], [place] [address] 09 Jun, 2013 [facility] [address] [id number] [address] [place] [address], [place] [address] 05 Jun, 2013 [facility] [address] [id number] [address] [place] [address], [place] [address] 05 Jun, 2013 [facility] [address] [id number] [address] [place] [address], [place] [address] 04 Jun, 2013 [facility] [address] [id number] [address] [place] [address], [place] [address] 04 Jun, 2013 [facility] [address] [id number] [address] [place] [address], [place] [address] 17 May, 2013 [facility] [address] [id number] [address] [place] [address], [place] [address] 17 May, 2013 [facility] [address] [id number] [address] [place] [address], [place] [address] May, [facility] [address] [id number] [address] [place] [address], [place] [address] May, [facility] [address] [id number] [address] [place] [address], [place] [address] May, [facility] [address] [id number] [address] [place] [address], [place] [address] May, [facility] [address] [id number] [address] [place] [address], [place] [address] Apr, [facility] [address] [id number] [address] [place] [address], [place] [address] Apr, [facility] [address] [id number] [address] [place] [address], [place] [address] Apr, [facility] [address] [id number] [address] [place] [address], [place] [address] Apr, [facility] [address] [id number] [address] [place] [address], [place] [address] Apr, [facility] [address] [id number] [address] [place] [address], [place] [address] Apr, [facility] [address] [id number] [address] [place] [address], [place] [address] Apr, [facility] [address] [id number] [address] [place] [address], [place] [address] Apr, [facility] [address] [id number] [address] [place] [address], [place] [address] 26 Mar, 2013 [facility] [address] [id number] [address] [place] [address], [place] [address] 24 Sep2012 [facility] [address] [id number] [address] [place] [address], [place] [address] 17 Mar, 2013 [facility] [address] [id number] [address] [place] [address], [place] [address] 17 Mar, 2013 [facility] [address] [id number] [address] [place] [address] [place] [address] 11 Mar, 2013 [facility] [address] [id number] [address] [place] [address], [place] [address] 10 Mar, 2013 [facility] [address] [id number] [address] [place] [address], [place] [address] 05 Mar, 2013 [facility] [address] [id number] [address] [place] [address], [place] [address] 04 Mar, 2013 [facility] [address] [id number] [address] [place] [address], [place] [address] 20 Jan, 2013 [facility] [address] [id number] [address] [place] [address], [place] [address] Jan, [facility] [address] [id number] [address] [place] [address], [place] [address] 14 Jan, 2013 [facility] [address] [id number] [address] [place] [address], [place] [address] Jan, [facility] [address] [id number] [address] [place] [address], [place] [address] Jan, [facility] [address] [id number] [address] [place] [address], [place] [address] Jan, [facility] [address] [id number] [address] [place] [address], [place] [address] Dec, [facility] [address] [id number] [address] [place] [address], [place] [address] Dec, [facility] [address] [id number] [address] [place] [address], [place] [address] Dec, [facility] [address] [id number] [address] [place] [address], [place] [address] Dec, [facility] [address] [id number] [address] [place] [address], [place] [address] Dec, [facility] [address] [id number] [address] [place] [address], [place] [address] 17 Dec, 2012 [facility] [address] [id number] [address] [place] [address], [place] [address] 16 Dec, 2012 [facility] [address] [id number] [address] [place] [address], [place] [address] 16 Dec, 2012 [facility] [address] [id number] [address] [place] [address], [place] [address] 15 Dec, 2012 [facility] [address] [id number] [address] [place] [address], [place] [address] 10 Dec, 2012 [facility] [address] [id number] [address] [place] [address], [place] [address] 28 Dec, 2012 [facility] [address] [id number] [address] [place] [address], [place] [address] Dec, [facility] [address] [id number] [address] [place] [address], [place] [address] Dec, [facility] [address] [id number] [address] [place] [address], [place] [address] Dec, [facility] [address] [id number] [address] [place] [address], [place] [address] Dec, [facility] [address] [id number] [address] [place] [address], [place] [address] Dec, [facility] [address] [id number] [address] [place] [address], [place] [address] October, [facility] [address] [id number] [address] [place] [address], [place] [address] October, [facility] [address] [id number] [address] [place] [address], [place] [address] October, [facility] [address] [id number] [address] [place] [address], [place] [address] October, [facility] [address] [id number] [address] [place] [address], [place] [address] October, [facility] [address] [id number] [address] [place] [address], [place] [address] October, [facility] [address] [id number] [address] [place] [address], [place] [address] October, [facility] [address] [id number] [address] [place] [address], [place] [address] Oct, [facility] [address] [id number] [address] [place] [address], [place] [address] Oct, [facility] [address] [id number] [address] [place] [address], [place] [address] Oct, [facility] [address] [id number] [address] [place] [address], [place] [address] Oct, [facility] [address] [id number] [address] [place] [address], [place] [address] Oct, [facility] [address] [id number] [address] [place] [address], [place] [address] Oct, [facility] [address] [id number] [address] [place] [address], [place] [address] Oct, [facility] [address] [id number] [address] [place] [address], [place] [address] 15 Oct, 2012 [facility] [address] [id number] [address] [place] [address], [place] [address] Oct, [facility] [address] [id number] [address] [place] [address], [place] [address] Oct, [facility] [address] [id number] [address] [place] [address], [place] [address] Oct, [facility] [address] [id number] [address] [place] [address], [place] [address] Oct, [facility] [address] [id number] [address] [place] [address], [place] [address] Aug, [facility] [address] [id number] [address] [place] [address], [place] [address] Aug, [facility] [address] [id number] [address] [place] [address], [place] [address] 12 Aug, 2012 [facility] [address] [id number] [address] [place] [address], [place] [address] 06 Aug, 2012 [facility] [address] [id number] [address] [place] [address], [place] [address] 05 Aug, 2012 [facility] [address] [id number] [address] [place] [address], [place] [address] 05 Aug, 2012 [facility] [address] [id number] [address] [place] [address], [place] [address] 20 Aug, 2012 [facility] [address] [id number] [address] [place] [address], [place] [address] 14 Aug, 2012 [facility] [address] [id number] [address] [place] [address], [place] [address] 12 Aug, 2012 [facility] [address] [id number] [address] [place] [address], [place] [address] Aug, [facility] [address] [id number] [address] [place] [address], [place] [address] Jul, [facility] [address] [id number] [address] [place] [address], [place] [address] Jul, [facility] [address] [id number] [address] [place] [address], [place] [address] Jul, [facility] [address] [id number] [address] [place] [address], [place] [address] Jun, [facility] [address] [id number] [address] [place] [address], [place] [address] Jun, [facility] [address] [id number] [address] [place] [address], [place] [address] Jun, [facility] [address] [id number] [address] [place] [address], [place] [address] Jun, [facility] [address] [id number] [address] [place] [address], [place] [address] Jun, [facility] [address] [id number] [address] [place] [address], [place] [address] 14 Jun, 2012 [facility] [address] [id number] [address] [place] [address], [place] [address] 14 Jun, 2012 [facility] [address] [id number] [address] [place] [address], [place] [address] 13 Jun, 2012 [facility] [address] [id number] [address] [place] [address], [place] [address] 13 Jun, 2012 [facility] [address] [id number] [address] [place] [address], [place] [address] 11 Jun, 2012 [facility] [address] [id number] [address] [place] [address], [place] [address] 11 Jun, 2012 [facility] [address] [id number] [address] [place] [address], [place] [address] 11 Jun, 2012 [facility] [address] [id number] [address] [place] [address], [place] [address] 11 Jun, 2012 [facility] [address] [id number] [address] [place] [address], [place] [address] 07 Jun, 2012 [facility] [address] [id number] [address] [place] [address], [place] [address] 07 Jun, 2012 [facility] [address] [id number] [address] [place] [address], [place] [address] 06 Jun, 2012 [facility] [address] [id number] [address] [place] [address], [place] [address] 06 Jun, 2012 [facility] [address] [id number] [address] [place] [address], [place] [address] Jun, [facility] [address] [id number] [address] [place] [address], [place] [address] 06 Jun, 2012 [facility] [address] [id number] [address] [place] [address], [place] [address] 05 Jun, 2012 [facility] [address] [id number] [address] [place] [address], [place] [address] Jun, [facility] [address] [id number] [address] [place] [address], [place] [address] Jun, [facility] [address] [id number] [address] [place] [address], [place] [address] Jun, [facility] [address] [id number] [address] [place] [address], [place] [address] May, [facility] [address] [id number] [address] [place] [address], [place] [address] May, [facility] [address] [id number] [address] [place] [address], [place] [address] May, [facility] [address] [id number] [address] [place] [address], [place] [address] May, [facility] [address] [id number] [address] [place] [address], [place] [address] May, [facility] [address] [id number] [address] [place] [address], [place] [address] May, [facility] [address] [id number] [address] [place] [address], [place] [address] May, [facility] [address] [id number] [address] [place] [address], [place] [address] May, [facility] [address] [id number] [address] [place] [address], [place] [address] Apr, [facility] [address] [id number] [address] [place] [address] Apr, [facility] [address] [id number] [address] [place] [address], [place] [address] Apr, [facility] [address] [id number] [address] [place] [address], [place] [address] Apr, [facility] [address] [id number] [address] [place] [address] Apr, [facility] [address] [id number] [address] [place] [address], [place] [address] Apr, [facility] [address] [id number] [address] [place] [address], [place] [address] Apr, [facility] [address] [id number] [address] [place] [address], [place] [address] Apr, [facility] [address] [id number] [address] [place] [address], [place] [address] Apr, [facility] [address] [id number] [address] [place] [address], [place] [address] Apr, [facility] [address] [id number] [address] [place] [address], [place] [address] Apr, [facility] [address] [id number] [address] [place] [address], [place] [address] Apr, [facility] [address] [id number] [address] [place] [address], [place] [address] Mar, [facility] [address] [id number] [address] [place] [address], [place] [address] 18 Mar, 2012 [facility] [address] [id number] [address] [place] [address] Mar, [facility] [address] [id number] [address] [place] [address] Mar, [facility] [address] [id number] [address] [place] [id number] Mar, [facility] [address] [id number] [address] [place] [id number] Mar, [facility] [address] [id number] [address] [place] [address], [place] [address] Mar, [facility] [address] [id number] [address] [place] [address], [place] [address] Jan, [facility] [address] [id number] [address] [place] [address] Jan, [facility] [address] [id number] [facility] [id number] Jan, [facility] [address] [id number] [facility] [id number] Jan, [facility] [address] [id number] [address] [place] [address], [place] [address] Jan, [facility] [address] [id number] [address] [place] [address], [place] [address] Jan, [facility] [address] [id number] [address] [place] [address], [place] [address] Jan, [facility] [address] [id number] [address] [place] [address], [place] [address] Jan, [facility] [address] [id number] [address] [place] [address], [place] [address] Jan, [facility] [address] [id number] [address] [place] [address], [place] [address] Jan, [facility] [address] [id number] [address] [place] [address], [place] [address] Jan, [facility] [address] [id number] [address] [place] [address], [place] [address] Dec, [facility] [address] [id number] [address] [place] [address], [place] [address] Dec, [facility] [address] [id number] [address] [place] [address], [place] [address] Dec, [facility] [address] [id number] [address] [place] [address], [place] [address] Dec, [facility] [address] [id number] [address] [place] [address], [place] [address] Dec, [facility] [address] [id number] [address] [place] [address], [place] [address] Dec, [facility] [address] [id number] [address] [place] [address] [place] [address] 18 Jan, 2012 [facility] [address] [id number] [address] [place] [address], [place] [address] 17 Jan, 2012 [facility] [address] [id number] [address] [place] [address], [place] [address] 16 Jan, 2012 [facility] [address] [id number] [address] [place] [address], [place] [address] 13 Jan, 2012 [facility] [address] [id number] [address] [place] [address], [place] [address] 13 Jan, 2012 [facility] [address] [id number] [address] [place] [address], [place] [address] 02 Jan, 2012 [facility] [address] [id number] [address] [place] [address], [place] [address] Dec, [facility] [address] [id number] [address] [place] [address], [place] [address] Dec, [facility] [address] [id number] [address] [place] [address], [place] [address] Dec, [facility] [address] [id number] [address] [place] [address], [place] [address] Dec, [facility] [address] [id number] [address] [place] [address], [place] [address] 15 Dec, 2011 [facility] [address] [id number] [address] [place] [address], [place] [address] Dec, [facility] [address] [id number] [address] [place] [address], [place] [address] Dec, [facility] [address] [id number] [address] [place] [address], [place] [address] October, [facility] [address] [id number] [address] [place] [address], [place] [address] October, [facility] [address] [id number] [address] [place] [address], [place] [address] October, [facility] [address] [id number] [address] [place] [address], [place] [address] October, [facility] [address] [id number] [address] [place] [address], [place] [address] October, [facility] [address] [id number] [address] [place] [address], [place] [address] October, [facility] [address] [id number] [address] [place] [address], [place] [address] Oct, [facility] [address] [id number] [address] [place] [address], [place] [address] 24 Oct, 2011 [facility] [address] [id number] [address] [place] [address], [place] [address] Oct, [facility] [address] [id number] [address] [place] [address], [place] [address] Oct, [facility] [address] [id number] [address] [place] [address], [place] [address] Oct, [facility] [address] [id number] [address] [place] [address], [place] [address] Oct, [facility] [address] [id number] [address] [place] [address], [place] [address] Oct, [facility] [address] [id number] [address] [place] [address], [place] [address] Aug, [facility] [address] [id number] [address] [place] [address], [place] [address] 29 Sep, 2011 [facility] [address] [id number] [address] [place] [address], [place] [address] 19 Sep, 2011 [facility] [address] [id number] [address] [place] [address], [place] [address] 13 Sep, 2011 [facility] [address] [id number] [address] [place] [address], [place] [address] 05 Sep, 2011 [facility] [address] [id number] [address] [place] [address], [place] [address] Aug, [facility] [address] [id number] [address] [place] [address], [place] [address] Aug, [facility] [address] [id number] [address] [place] [address], [place] [address] Aug, [facility] [address] [id number] [address] [place] [address], [place] [address] Aug, [facility] [address] [id number] [address] [place] [address], [place] [address] Jul, [facility] [address] [id number] [address] [place] [address], [place] [address] Jul, [facility] [address] [id number] [address] [place] [address], [place] [address] Jul, [facility] [address] [id number] [address] [place] [address], [place] [address] Jul, [facility] [address] [id number] [address] [place] [address], [place] [address] Jun, [facility] [address] [id number] [address] [place] [address], [place] [address] Jun, [facility] [address] [id number] [address] [place] [address], [place] [address] May, [facility] [address] [id number] [address] [place] [address], [place] [address] May, [facility] [address] [id number] [address] [place] [address], [place] [address] May, [facility] [address] [id number] [address] [place] [address], [place] [address] May, [facility] [address] [id number] [address] [place] [address], [place] [address] 07 May, 2011 [facility] [address] [id number] [address] [place] [address], [place] [address] Apr, [facility] [address] [id number] [address] [place] [address] Apr, [facility] [address] [id number] [address] [place] [address] Apr, [facility] [address] [id number] [address] [place] [address] Jan, [facility] [address] [id number] [address] [place] [address] Dec, [facility] [address] [id number] [address] [place] [address] October, [facility] [address] [id number] [address] [place] [address] Jun, [facility] [address] [id number] [address] [place] [address] Apr, [facility] [address] [id number] [address] [place] [address] Apr, [facility] [address] [id number] [address] [place] [address] Apr, [facility] [address] [id number] [address] [place] [address] Jun, IMMUNIZATIONS No Known Immunizations SOCIAL HISTORY Never Assessed REASON FOR VISIT [facility] PLAN OF CARE VITAL SIGNS MEDICATIONS Unknown Medications RESULTS No Results PROCEDURES No Known procedures INSTRUCTIONS MEDICATIONS ADMINISTERED No Known Medications MEDICAL (GENERAL) HISTORY Type Description Date Medical History Psychiatric disorder Medical History Hard of hearing Surgical History Neofibrous tumor Surgical History back injection Hospitalization History Intestinal blockage Hospitalization History past psychiatric hospitalizations x2
--- OUTSIDE RECORDS SUMMARY | 2020-01-25 12:54 | XMS REPORT ---
Author Author Ana Mayer Doctor Organization [facility] Address Unknown Phone Unavailable Care Team Providers Care Credit Processor Name Role Phone Migration, Doctor Unavailable Unavailable PROBLEMS Type Condition ICD9-CM Code [id number] Code Onset Dates Condition S tatus SNOMED Code Problem Attention deficit R41.840 Active 76 926093 Problem Chronic hepatitis C without hepatic coma B18.2 Active 730358731 Problem Cannabis abuse F12.10 Active 40528 009 Problem Bipolar disorder, in partial remission, most rec ent episode hypomanic F31.71 Active 607205452 Problem Attention deficit hyperactivity disorder (ADHD), combi luciano type F90.2 Active 32495300 Problem Bipolar 1 disorder F31.9 Active 3 48128208 Problem H/O laminectomy Z98.89 Active 1616 70969 Problem Other chronic pain G89.29 Active 8 9201740 Problem Anxiety disorder, unspecified type F41.9 Active [id number] ALLERGIES No Information ENCOUNTERS Encounter Location Date Diagnosis [facility] [address] [facility] [id number] [address] [place] [address] Oct, [facility] [address] [facility] [id number] [address] [place] [address] Aug, Bipolar disorder, in partial remission, most recent episode hypomanic F31.71 ; Attention deficit hyperactivity disorder (ADHD), combined type F90.2 and Anxiety disorder, unspecified type F41.9 [facility] [address] [facility] [id number] [address] [place] [id number] Aug, [facility] [address] [facility] [id number] [address] [place] [address] Aug, Bipolar disorder, in partial remission, most recent episode hypomanic F31.71 [facility] [address] [facility] [id number] [address] [place] [address] Aug, [facility] [address] [id number] [address] [place] [address] Aug, Bipolar disorder, in partial remission, most recent episode hypomanic F31.71 [facility] [address] [id number] [address] [place] [address] Aug, Bipolar disorder, in partial remission, most recent episode hypomanic F31.71 ; Attention deficit hyperactivity disorder (ADHD), combined type F90.2 and Anxiety disorder, unspecified type F41.9 [facility] [address] [id number] [address] [place] [address] Aug, Low back pain M54.5 and Pain in left wrist M25.532 [facility] [address] [id number] [address] [place] [address] Aug, [facility] [address] [id number] [address] [place] [address] Jun, [facility] [address] [facility] [id number] [address] [place] [address] Apr, Bipolar disorder, in partial remission, most recent episode hypomanic F31.71 [facility] [address] [id number] [address] [place] [address] Apr, [facility] [address] [id number] [address] [place] [address] Apr, Bipolar disorder, in partial remission, most recent episode hypomanic F31.71 ; Attention deficit hyperactivity disorder (ADHD), combined type F90.2 ; Anxiety disorder, unspecified type F41.9 and Other mcfp (current) 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 Z79.899 [facility] [address] [id number] [address] [place] [address] Apr, Bipolar disorder, in partial remission, most recent episode hypomanic F31.71 [facility] [address] [id number] [address] [place] [address] Apr, Bipolar disorder, in partial remission, most recent episode hypomanic F31.71 [facility] [address] [facility] [id number] [address] [place] [phone] Mar, [facility] [address] [id number] [address] [place] [phone] Mar, Bipolar disorder, in partial remission, most recent episode hypomanic F31.71 ; Encounter for immunization Z23 and Low back pain M54.5 [facility] [address] [id number] [address] [place] [address] Mar, Bipolar disorder, in partial remission, most recent episode hypomanic F31.71 [facility] [address] [id number] [address] [place] [address] Mar, Bipolar disorder, in partial remission, most recent episode hypomanic F31.71 [facility] [address] [facility] [id number] [address] [place] [address] Jan, Bipolar disorder, in partial remission, most recent episode hypomanic F31.71 [facility] [address] [facility] [id number] [address] [place] [phone] Jan, Bipolar disorder, in partial remission, most recent episode hypomanic F31.71 [facility] [address] [facility] [id number] [address] [place] [address] Dec, Bipolar disorder, in partial remission, most recent episode hypomanic F31.71 [facility] [address] [facility] [id number] [address] [place] [address] Dec, Bipolar disorder, in partial remission, most recent episode hypomanic F31.71 ; Attention deficit hyperactivity disorder (ADHD), combined type F90.2 ; Anxiety disorder, unspecified type F41.9 and Other mcfp (current) 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 Z79.899 [facility] [address] [facility] [id number] [address] [place] [address] Dec, Bipolar disorder, in partial remission, most recent episode hypomanic F31.71 [facility] [address] [facility] [id number] [address] [place] [address] Dec, Bipolar disorder, in partial remission, most recent episode hypomanic F31.71 [facility] [address] [id number] [address] [place] [address] October, Bipolar disorder, in partial remission, most recent episode hypomanic F31.71 [facility] [address] [id number] [address] [place] [address] October, [facility] [address] [id number] [address] [place] [address] October, [facility] [address] [id number] [address] [place] [address] Oct, Bipolar disorder, in partial remission, most recent episode hypomanic F31.71 ; Attention deficit hyperactivity disorder (ADHD), combined type F90.2 ; Anxiety disorder, unspecified type F41.9 and Encounter for drug screening Z02.83 [facility] [address] [id number] [address] [place] [address] Oct, Bipolar disorder, in partial remission, most recent episode hypomanic F31.71 [facility] [address] [id number] [address] [place] [phone] Oct, Bipolar disorder, in partial remission, most recent episode hypomanic F31.71 [facility] [address] [id number] [address] [place] [address] Aug, Bipolar disorder, in partial remission, most recent episode hypomanic F31.71 [facility] [address] [id number] [address] [place] [address] Aug, Bipolar disorder, in partial remission, most recent episode hypomanic F31.71 [facility] [address] [id number] [address] [place] [address] Aug, Bipolar disorder, in partial remission, most recent episode hypomanic F31.71 [facility] [address] [id number] [address] [place] [address] Jul, Bipolar disorder, in partial remission, most recent episode hypomanic F31.71 ; Attention deficit hyperactivity disorder (ADHD), combined type F90.2 and Anxiety disorder, unspecified type F41.9 [facility] [address] [id number] [address] [place] [address] Jul, Bipolar disorder, in partial remission, most recent episode hypomanic F31.71 [facility] [address] [id number] [address] [place] [address] Jun, Bipolar disorder, in partial remission, most recent episode hypomanic F31.71 [facility] [address] [id number] [address] [place] [address] May, Bipolar disorder, in partial remission, most recent episode hypomanic F31.71 [facility] [address] [facility] [id number] [address] [place] [address] May, Bipolar disorder, in partial remission, most recent episode hypomanic F31.71 [facility] [address] [facility] [id number] [address] [place] [address] Apr, [facility] [address] [id number] [address] [place] [phone] Apr, Bipolar disorder, in partial remission, most recent episode hypomanic F31.71 ; Attention deficit hyperactivity disorder (ADHD), combined type F90.2 ; Anxiety disorder, unspecified type F41.9 and Cannabis abuse F12.10 [facility] [address] [id number] [address] [place] [phone] Apr, Attention deficit hyperactiv ity disorder (ADHD), combined type F90.2 [facility] [address] [id number] [address] [place] [address] Mar, Attention deficit hyperactiv ity disorder (ADHD), combined type F90.2 [facility] [address] [facility] [id number] [address] [place] [address] Mar, Anxiety disorder, unspecifie d type F41.9 [facility] [address] [facility] [id number] [address] [place] [address] Jan, Attention deficit hyperactiv ity disorder (ADHD), combined type F90.2 [facility] [address] [facility] [id number] [address] [place] [address] Jan, Anxiety disorder, unspecifie d type F41.9 [facility] [address] [facility] [id number] [address] [place] [address] Jan, Other chronic pain G89.29 ; Chronic hepatitis C without hepatic coma B18.2 and Bipolar 1 disorder F31.9 [facility] [address] [facility] [id number] [address] [place] [address] Dec, Attention deficit hyperactiv ity disorder (ADHD), combined type F90.2 [facility] [address] [facility] [id number] [address] [place] [address] Dec, Bipolar disorder, in partial remission, most recent episode hypomanic F31.71 ; Attention deficit hyperactivity disorder (ADHD), combined type F90.2 and Anxiety disorder, unspecified type F41.9 [facility] [address] [facility] [id number] [address] [place] [address] Dec, Bipolar disorder, in partial remission, most recent episode hypomanic F31.71 ; Attention deficit hyperactivity disorder (ADHD), combined type F90.2 and Anxiety disorder, unspecified type F41.9 [facility] [address] [facility] [id number] [address] [place] [address] Dec, Bipolar 1 disorder F31.9 and Attention deficit R41.840 [facility] [address] [facility] [id number] [address] [place] [phone] Oct, Other chronic pain G89.29 ; Alopecia L65.9 and Screening, lipid Z13.220 [facility] [address] [facility] [id number] [address] [place] [address] Oct, [place] [address] [facility] [id number] [address] [place] [phone] Aug, [facility] [address] [facility] [id number] [address] [place] [address] Aug, Eustachian tube dysfunction, right H69.81 ; Vertigo R42 and Other chronic pain G89.29 [facility] [address] [id number] [address] [place] [phone] Aug, [facility] [address] [id number] [address] [place] [address] Jun, [facility] [address] [id number] [address] [place] [address] Jun, Low back pain M54.5 and Othe r chronic pain G89.29 [facility] [address] [id number] [address] [place] [id number] Jun, [facility] [address] [id number] [address] [place] [address] May, [facility] [address] [id number] [address] [place] [phone] Jan, [facility] [address] [id number] [address] [place] [phone] Dec, [facility] [address] [id number] [address] [place] [address] Dec, [facility] [address] [id number] [address] [place] [address] Jun, [facility] [address] [id number] [address] [place] [phone] Apr, Eustachian tube dysfunction, unspecified laterality H69.80 ; Hot flashes N95.1 and Encounter for immunization Z23 [facility] [address] [id number] [address] [place] [phone] Jan, [facility] [address] [id number] [address] [place] [phone] Jan, [facility] [address] [id number] [address] [place] [address] Jan, [facility] [address] [id number] [address] [place] [phone] Jan, [facility] [address] [id number] [address] [place] [address] Jan, Encounter to establish care V65.8 ; Bipolar 1 disorder 296.7 ; Abdominal pain 789.00 ; Constipation 564.00 ; Hard of hearing 389.9 and Drug abuse 305.90 [facility] [address] [id number] [address] [place] [address] Dec, [facility] [address] [id number] [address] [place] [address] October, [facility] [address] [id number] [address] [place] [address] October, [facility] [address] [id number] [address] [place] [address] Oct, [facility] [address] [id number] [address] [place] [address] Oct, [facility] [address] [id number] [address] [place] [phone] Oct, [facility] [address] [id number] [address] [place] [address] Aug, [facility] [address] [id number] [address] [place] [address] Aug, [facility] [address] [id number] [address] [place] [phone] Aug, [facility] [address] [id number] [address] [place] [phone] Aug, [facility] [address] [id number] [address] [place] [phone] Aug, [facility] [address] [id number] [address] [place] [phone] Aug, [facility] [address] [id number] [address] [place] [address], [place] [address] Aug, 2014 [facility] [address] [id number] [address] [place] [address], [place] [address] Aug, 2014 [facility] [address] [id number] [address] [place] [address], [place] [address] Aug, 2014 [facility] [address] [id number] [address] [place] [address], [place] [address] Aug, 2014 [facility] [address] [id number] [address] [place] [address], [place] [address] Aug, 2014 [facility] [address] [id number] [address] [place] [address], [place] [address] Aug, 2014 [facility] [address] [id number] [address] [place] [address], [place] [address] Aug, 2014 [facility] [address] [id number] [address] [place] [address], [place] [address] Aug, 2014 [facility] [address] [id number] [address] [place] [address], [place] [address] Aug, [facility] [address] [id number] [address] [place] [address], [place] [address] Jul, [facility] [address] [id number] [address] [place] [address], [place] [address] Jul, [facility] [address] [id number] [address] [place] [address], [place] [address] Jul, [facility] [address] [id number] [address] [place] [address], [place] [address] Jul, [facility] [address] [id number] [address] [place] [address], [place] [address] Jul, [facility] [address] [id number] [address] [place] [address], [place] [address] Jul, [facility] [address] [id number] [address] [place] [address], [place] [address] Jul, [facility] [address] [id number] [address] [place] [address], [place] [address] Jul, [facility] [address] [id number] [address] [place] [address], [place] [address] Jun, [facility] [address] [id number] [address] [place] [address], [place] [address] Jun, [facility] [address] [id number] [address] [place] [address], [place] [address] Jun, [facility] [address] [id number] [address] [place] [address], [place] [address] Jun, [facility] [address] [id number] [address] [place] [address], [place] [address] Jun, [facility] [address] [id number] [address] [place] [address], [place] [address] Jun, [facility] [address] [id number] [address] [place] [address], [place] [address] Jun, [facility] [address] [id number] [address] [place] [address], [place] [address] Jun, [facility] [address] [id number] [address] [place] [address], [place] [address] Jun, [facility] [address] [id number] [address] [place] [address], [place] [address] Jun, [facility] [address] [id number] [address] [place] [address], [place] [address] Jun, [facility] [address] [id number] [address] [place] [address], [place] [address] May, [facility] [address] [id number] [address] [place] [address], [place] [address] May, [facility] [address] [id number] [address] [place] [address], [place] [address] May, [facility] [address] [id number] [address] [place] [address], [place] [address] May, [facility] [address] [id number] [address] [place] [address], [place] [address] May, [facility] [address] [id number] [address] [place] [address], [place] [address] May, [facility] [address] [id number] [address] [place] [address], [place] [address] May, [facility] [address] [id number] [address] [place] [address], [place] [address] Apr, [facility] [address] [id number] [address] [place] [address], [place] [address] Apr, [facility] [address] [id number] [address] [place] [address], [place] [address] Apr, [facility] [address] [id number] [address] [place] [address], [place] [address] Apr, [facility] [address] [id number] [address] [place] [address], [place] [address] Apr, [facility] [address] [id number] [address] [place] [address], [place] [address] Apr, [facility] [address] [id number] [address] [place] [address], [place] [address] Mar, [facility] [address] [id number] [address] [place] [address], [place] [address] 29 Mar, 2013 [facility] [address] [id number] [address] [place] [address], [place] [address] 10 Mar, 2013 [facility] [address] [id number] [address] [place] [address], [place] [address] 10 Mar, 2013 [facility] [address] [id number] [address] [place] [address], [place] [address] Mar, 2013 [facility] [address] [id number] [address] [place] [address], [place] [address] Mar, [facility] [address] [id number] [address] [place] [address], [place] [address] Jan, [facility] [address] [id number] [address] [place] [address], [place] [address] Jan, [facility] [address] [id number] [address] [place] [address], [place] [address] Jan, [facility] [address] [id number] [address] [place] [address], [place] [address] Jan, [facility] [address] [id number] [address] [place] [address], [place] [address] Dec, [facility] [address] [id number] [address] [place] [address], [place] [address] Dec, [facility] [address] [id number] [address] [place] [address], [place] [address] Dec, [facility] [address] [id number] [address] [place] [address], [place] [address] Dec, [facility] [address] [id number] [address] [place] [address], [place] [address] Dec, [facility] [address] [id number] [address] [place] [address], [place] [address] Dec, [facility] [address] [id number] [address] [place] [address], [place] [address] Dec, [facility] [address] [id number] [address] [place] [address], [place] [address] Dec, [facility] [address] [id number] [address] [place] [address], [place] [address] Dec, [facility] [address] [id number] [address] [place] [address], [place] [address] Dec, [facility] [address] [id number] [address] [place] [address], [place] [address] Dec, [facility] [address] [id number] [address] [place] [address], [place] [address] Dec, [facility] [address] [id number] [address] [place] [address], [place] [address] October, [facility] [address] [id number] [address] [place] [address], [place] [address] October, [facility] [address] [id number] [address] [place] [address], [place] [address] October, [facility] [address] [id number] [address] [place] [address], [place] [address] October, [facility] [address] [id number] [address] [place] [address], [place] [address] October, [facility] [address] [id number] [address] [place] [address], [place] [address] October, [facility] [address] [id number] [address] [place] [address], [place] [address] Oct, [facility] [address] [id number] [address] [place] [address], [place] [address] Oct, [facility] [address] [id number] [address] [place] [address], [place] [address] Oct, [facility] [address] [id number] [address] [place] [address], [place] [address] Oct, [facility] [address] [id number] [address] [place] [address], [place] [address] Oct, [facility] [address] [id number] [address] [place] [address], [place] [address] Oct, [facility] [address] [id number] [address] [place] [address], [place] [address] Oct, [facility] [address] [id number] [address] [place] [address], [place] [address] Oct, [facility] [address] [id number] [address] [place] [address], [place] [address] Oct, [facility] [address] [id number] [facility] [address] 09 Oct, 2013 [facility] [address] [id number] [facility] [address] Oct, [facility] [address] [id number] [address] [place] [address], [place] [address] Oct, [facility] [address] [id number] [address] [place] [address], [place] [address] Aug, [facility] [address] [id number] [address] [place] [address], [place] [address] Aug, [facility] [address] [id number] [address] [place] [address], [place] [address] Aug, [facility] [address] [id number] [address] [place] [address], [place] [address] Aug, [facility] [address] [id number] [address] [place] [address], [place] [address] Aug, [facility] [address] [id number] [address] [place] [address], [place] [address] 05 Aug, 2013 [facility] [address] [id number] [address] [place] [address], [place] [address] Aug, [facility] [address] [id number] [address] [place] [address], [place] [address] Aug, [facility] [address] [id number] [address] [place] [address], [place] [address] Aug, [facility] [address] [id number] [address] [place] [address], [place] [address] Aug, [facility] [address] [id number] [address] [place] [address], [place] [address] Aug, [facility] [address] [id number] [address] [place] [address], [place] [address] Aug, [facility] [address] [id number] [address] [place] [address], [place] [address] Aug, [facility] [address] [id number] [address] [place] [address], [place] [address] 20 Aug, 2013 [facility] [address] [id number] [address] [place] [address], [place] [address] 14 Aug, 2013 [facility] [address] [id number] [address] [place] [address], [place] [address] 14 Aug, 2013 [facility] [address] [id number] [address] [place] [address], [place] [address] 14 Aug, 2013 [facility] [address] [id number] [address] [place] [address], [place] [address] 14 Aug, 2013 [facility] [address] [id number] [address] [place] [address], [place] [address] 07 Aug, 2013 [facility] [address] [id number] [address] [place] [address], [place] [address] 07 Aug, 2013 [facility] [address] [id number] [address] [place] [address], [place] [address] 06 Aug, 2013 [facility] [address] [id number] [address] [place] [address], [place] [address] 06 Aug, 2013 [facility] [address] [id number] [address] [place] [address], [place] [address] 04 Aug, 2013 [facility] [address] [id number] [address] [place] [address], [place] [address] 04 Aug, 2013 [facility] [address] [id number] [address] [place] [address], [place] [address] Aug, [facility] [address] [id number] [address] [place] [address], [place] [address] Jul, [facility] [address] [id number] [address] [place] [address], [place] [address] Jul, [facility] [address] [id number] [address] [place] [address], [place] [address] Jul, [facility] [address] [id number] [address] [place] [address], [place] [address] Jul, [facility] [address] [id number] [address] [place] [address], [place] [address] Jul, [facility] [address] [id number] [address] [place] [address], [place] [address] Jul, [facility] [address] [id number] [address] [place] [address], [place] [address] Jul, [facility] [address] [id number] [address] [place] [address], [place] [address] Jul, [facility] [address] [id number] [address] [place] [address], [place] [address] Jul, [facility] [address] [id number] [address] [place] [address], [place] [address] Jul, [facility] [address] [id number] [address] [place] [address], [place] [address] Jul, [facility] [address] [id number] [address] [place] [address], [place] [address] Jul, [facility] [address] [id number] [address] [place] [address], [place] [address] Jul, [facility] [address] [id number] [address] [place] [address], [place] [address] Jul, [facility] [address] [id number] [address] [place] [address], [place] [address] Jul, [facility] [address] [id number] [address] [place] [address], [place] [address] Jul, [facility] [address] [id number] [address] [place] [address], [place] [address] Jul, [facility] [address] [id number] [address] [place] [address], [place] [address] Jul, [facility] [address] [id number] [address] [place] [address], [place] [address] Jul, [facility] [address] [id number] [address] [place] [address], [place] [address] Jul, [facility] [address] [id number] [address] [place] [address], [place] [address] Jun, [facility] [address] [id number] [address] [place] [address], [place] [address] Jun, [facility] [address] [id number] [address] [place] [address], [place] [address] Jun, [facility] [address] [id number] [address] [place] [address], [place] [address] Jun, [facility] [address] [id number] [address] [place] [address], [place] [address] Jun, [facility] [address] [id number] [address] [place] [address], [place] [address] Jun, [facility] [address] [id number] [address] [place] [address], [place] [address] Jun, [facility] [address] [id number] [address] [place] [address], [place] [address] Jun, [facility] [address] [id number] [address] [place] [address], [place] [address] Jun, [facility] [address] [id number] [address] [place] [address], [place] [address] Jun, [facility] [address] [id number] [address] [place] [address], [place] [address] Jun, [facility] [address] [id number] [address] [place] [address], [place] [address] Jun, [facility] [address] [id number] [address] [place] [address], [place] [address] Jun, [facility] [address] [id number] [address] [place] [address], [place] [address] Jun, [facility] [address] [id number] [address] [place] [address], [place] [address] 20 Jun, 2013 [facility] [address] [id number] [address] [place] [address], [place] [address] 18 Jun, 2013 [facility] [address] [id number] [address] [place] [address], [place] [address] 18 Jun, 2013 [facility] [address] [id number] [address] [place] [address], [place] [address] 17 Jun, 2013 [facility] [address] [id number] [address] [place] [address], [place] [address] 17 Jun, 2013 [facility] [address] [id number] [address] [place] [address], [place] [address] 13 Jun, 2013 [facility] [address] [id number] [address] [place] [address], [place] [address] 12 Jun, 2013 [facility] [address] [id number] [address] [place] [address], [place] [address] 12 Jun, 2013 [facility] [address] [id number] [address] [place] [address], [place] [address] 09 Jun, 2013 [facility] [address] [id number] [address] [place] [address], [place] [address] 05 Jun, 2013 [facility] [address] [id number] [address] [place] [address], [place] [address] 05 Jun, 2013 [facility] [address] [id number] [address] [place] [address], [place] [address] 04 Jun, 2013 [facility] [address] [id number] [address] [place] [address], [place] [address] 04 Jun, 2013 [facility] [address] [id number] [address] [place] [address], [place] [address] 17 May, 2013 [facility] [address] [id number] [address] [place] [address], [place] [address] 17 May, 2013 [facility] [address] [id number] [address] [place] [address], [place] [address] May, [facility] [address] [id number] [address] [place] [address], [place] [address] May, [facility] [address] [id number] [address] [place] [address], [place] [address] May, [facility] [address] [id number] [address] [place] [address], [place] [address] May, [facility] [address] [id number] [address] [place] [address], [place] [address] Apr, [facility] [address] [id number] [address] [place] [address], [place] [address] Apr, [facility] [address] [id number] [address] [place] [address], [place] [address] Apr, [facility] [address] [id number] [address] [place] [address], [place] [address] Apr, [facility] [address] [id number] [address] [place] [address], [place] [address] Apr, [facility] [address] [id number] [address] [place] [address], [place] [address] Apr, [facility] [address] [id number] [address] [place] [address], [place] [address] Apr, [facility] [address] [id number] [address] [place] [address], [place] [address] Apr, [facility] [address] [id number] [address] [place] [address], [place] [address] 26 Mar, 2013 [facility] [address] [id number] [address] [place] [address], [place] [address] 24 Sep2012 [facility] [address] [id number] [address] [place] [address], [place] [address] 17 Mar, 2013 [facility] [address] [id number] [address] [place] [address], [place] [address] 17 Mar, 2013 [facility] [address] [id number] [address] [place] [address] [place] [address] 11 Mar, 2013 [facility] [address] [id number] [address] [place] [address], [place] [address] 10 Mar, 2013 [facility] [address] [id number] [address] [place] [address], [place] [address] 05 Mar, 2013 [facility] [address] [id number] [address] [place] [address], [place] [address] 04 Mar, 2013 [facility] [address] [id number] [address] [place] [address], [place] [address] 20 Jan, 2013 [facility] [address] [id number] [address] [place] [address], [place] [address] Jan, [facility] [address] [id number] [address] [place] [address], [place] [address] 14 Jan, 2013 [facility] [address] [id number] [address] [place] [address], [place] [address] Jan, [facility] [address] [id number] [address] [place] [address], [place] [address] Jan, [facility] [address] [id number] [address] [place] [address], [place] [address] Jan, [facility] [address] [id number] [address] [place] [address], [place] [address] Dec, [facility] [address] [id number] [address] [place] [address], [place] [address] Dec, [facility] [address] [id number] [address] [place] [address], [place] [address] Dec, [facility] [address] [id number] [address] [place] [address], [place] [address] Dec, [facility] [address] [id number] [address] [place] [address], [place] [address] Dec, [facility] [address] [id number] [address] [place] [address], [place] [address] 17 Dec, 2012 [facility] [address] [id number] [address] [place] [address], [place] [address] 16 Dec, 2012 [facility] [address] [id number] [address] [place] [address], [place] [address] 16 Dec, 2012 [facility] [address] [id number] [address] [place] [address], [place] [address] 15 Dec, 2012 [facility] [address] [id number] [address] [place] [address], [place] [address] 10 Dec, 2012 [facility] [address] [id number] [address] [place] [address], [place] [address] 28 Dec, 2012 [facility] [address] [id number] [address] [place] [address], [place] [address] Dec, [facility] [address] [id number] [address] [place] [address], [place] [address] Dec, [facility] [address] [id number] [address] [place] [address], [place] [address] Dec, [facility] [address] [id number] [address] [place] [address], [place] [address] Dec, [facility] [address] [id number] [address] [place] [address], [place] [address] Dec, [facility] [address] [id number] [address] [place] [address], [place] [address] October, [facility] [address] [id number] [address] [place] [address], [place] [address] October, [facility] [address] [id number] [address] [place] [address], [place] [address] October, [facility] [address] [id number] [address] [place] [address], [place] [address] October, [facility] [address] [id number] [address] [place] [address], [place] [address] October, [facility] [address] [id number] [address] [place] [address], [place] [address] October, [facility] [address] [id number] [address] [place] [address], [place] [address] October, [facility] [address] [id number] [address] [place] [address], [place] [address] Oct, [facility] [address] [id number] [address] [place] [address], [place] [address] Oct, [facility] [address] [id number] [address] [place] [address], [place] [address] Oct, [facility] [address] [id number] [address] [place] [address], [place] [address] Oct, [facility] [address] [id number] [address] [place] [address], [place] [address] Oct, [facility] [address] [id number] [address] [place] [address], [place] [address] Oct, [facility] [address] [id number] [address] [place] [address], [place] [address] Oct, [facility] [address] [id number] [address] [place] [address], [place] [address] 15 Oct, 2012 [facility] [address] [id number] [address] [place] [address], [place] [address] Oct, [facility] [address] [id number] [address] [place] [address], [place] [address] Oct, [facility] [address] [id number] [address] [place] [address], [place] [address] Oct, [facility] [address] [id number] [address] [place] [address], [place] [address] Oct, [facility] [address] [id number] [address] [place] [address], [place] [address] Aug, [facility] [address] [id number] [address] [place] [address], [place] [address] Aug, [facility] [address] [id number] [address] [place] [address], [place] [address] 12 Aug, 2012 [facility] [address] [id number] [address] [place] [address], [place] [address] 06 Aug, 2012 [facility] [address] [id number] [address] [place] [address], [place] [address] 05 Aug, 2012 [facility] [address] [id number] [address] [place] [address], [place] [address] 05 Aug, 2012 [facility] [address] [id number] [address] [place] [address], [place] [address] 20 Aug, 2012 [facility] [address] [id number] [address] [place] [address], [place] [address] 14 Aug, 2012 [facility] [address] [id number] [address] [place] [address], [place] [address] 12 Aug, 2012 [facility] [address] [id number] [address] [place] [address], [place] [address] Aug, [facility] [address] [id number] [address] [place] [address], [place] [address] Jul, [facility] [address] [id number] [address] [place] [address], [place] [address] Jul, [facility] [address] [id number] [address] [place] [address], [place] [address] Jul, [facility] [address] [id number] [address] [place] [address], [place] [address] Jun, [facility] [address] [id number] [address] [place] [address], [place] [address] Jun, [facility] [address] [id number] [address] [place] [address], [place] [address] Jun, [facility] [address] [id number] [address] [place] [address], [place] [address] Jun, [facility] [address] [id number] [address] [place] [address], [place] [address] Jun, [facility] [address] [id number] [address] [place] [address], [place] [address] 14 Jun, 2012 [facility] [address] [id number] [address] [place] [address], [place] [address] 14 Jun, 2012 [facility] [address] [id number] [address] [place] [address], [place] [address] 13 Jun, 2012 [facility] [address] [id number] [address] [place] [address], [place] [address] 13 Jun, 2012 [facility] [address] [id number] [address] [place] [address], [place] [address] 11 Jun, 2012 [facility] [address] [id number] [address] [place] [address], [place] [address] 11 Jun, 2012 [facility] [address] [id number] [address] [place] [address], [place] [address] 11 Jun, 2012 [facility] [address] [id number] [address] [place] [address], [place] [address] 11 Jun, 2012 [facility] [address] [id number] [address] [place] [address], [place] [address] 07 Jun, 2012 [facility] [address] [id number] [address] [place] [address], [place] [address] 07 Jun, 2012 [facility] [address] [id number] [address] [place] [address], [place] [address] 06 Jun, 2012 [facility] [address] [id number] [address] [place] [address], [place] [address] 06 Jun, 2012 [facility] [address] [id number] [address] [place] [address], [place] [address] Jun, [facility] [address] [id number] [address] [place] [address], [place] [address] 06 Jun, 2012 [facility] [address] [id number] [address] [place] [address], [place] [address] 05 Jun, 2012 [facility] [address] [id number] [address] [place] [address], [place] [address] Jun, [facility] [address] [id number] [address] [place] [address], [place] [address] Jun, [facility] [address] [id number] [address] [place] [address], [place] [address] Jun, [facility] [address] [id number] [address] [place] [address], [place] [address] May, [facility] [address] [id number] [address] [place] [address], [place] [address] May, [facility] [address] [id number] 14 [place] [address], [place] [address] May, [facility] [address] [id number] [address] [place] [address], [place] [address] May, [facility] [address] [id number] [address] [place] [address], [place] [address] May, [facility] [address] [id number] [address] [place] [address], [place] [address] May, [facility] [address] [id number] [address] [place] [address], [place] [address] May, [facility] [address] [id number] [address] [place] [address], [place] [address] May, [facility] [address] [id number] [address] [place] [address], [place] [address] Apr, [facility] [address] [id number] [address] [place] [address] Apr, [facility] [address] [id number] [address] [place] [address], [place] [address] Apr, [facility] [address] [id number] [address] [place] [address], [place] [address] Apr, [facility] [address] [id number] [address] [place] [address] Apr, [facility] [address] [id number] [address] [place] [address], [place] [address] Apr, [facility] [address] [id number] [address] [place] [address], [place] [address] Apr, [facility] [address] [id number] [address] [place] [address], [place] [address] Apr, [facility] [address] [id number] [address] [place] [address], [place] [address] Apr, [facility] [address] [id number] [address] [place] [address], [place] [address] Apr, [facility] [address] [id number] [address] [place] [address], [place] [address] Apr, [facility] [address] [id number] [address] [place] [address], [place] [address] Apr, [facility] [address] [id number] [address] [place] [address], [place] [address] Mar, [facility] [address] [id number] [address] [place] [address], [place] [address] 18 Mar, 2012 [facility] [address] [id number] [address] [place] [address] Mar, [facility] [address] [id number] [address] [place] [address] Mar, [facility] [address] [id number] [address] [place] [id number] Mar, [facility] [address] [id number] [address] [place] [id number] Mar, [facility] [address] [id number] [address] [place] [address], [place] [address] Mar, [facility] [address] [id number] [address] [place] [address], [place] [address] Jan, [facility] [address] [id number] [address] [place] [address] Jan, [facility] [address] [id number] [facility] [id number] Jan, [facility] [address] [id number] [facility] [id number] Jan, [facility] [address] [id number] [address] [place] [address], [place] [address] Jan, [facility] [address] [id number] [address] [place] [address], [place] [address] Jan, [facility] [address] [id number] [address] [place] [address], [place] [address] Jan, [facility] [address] [id number] [address] [place] [address], [place] [address] Jan, [facility] [address] [id number] [address] [place] [address], [place] [address] Jan, [facility] [address] [id number] [address] [place] [address], [place] [address] Jan, [facility] [address] [id number] [address] [place] [address], [place] [address] Jan, [facility] [address] [id number] [address] [place] [address], [place] [address] Dec, [facility] [address] [id number] [address] [place] [address], [place] [address] Dec, [facility] [address] [id number] [address] [place] [address], [place] [address] Dec, [facility] [address] [id number] [address] [place] [address], [place] [address] Dec, [facility] [address] [id number] [address] [place] [address], [place] [address] Dec, [facility] [address] [id number] [address] [place] [address], [place] [address] Dec, [facility] [address] [id number] [address] [place] [address] [place] [address] 18 Jan, 2012 [facility] [address] [id number] [address] [place] [address], [place] [address] 17 Jan, 2012 [facility] [address] [id number] [address] [place] [address], [place] [address] 16 Jan, 2012 [facility] [address] [id number] [address] [place] [address], [place] [address] 13 Jan, 2012 [facility] [address] [id number] [address] [place] [address], [place] [address] 13 Jan, 2012 [facility] [address] [id number] [address] [place] [address], [place] [address] 02 Jan, 2012 [facility] [address] [id number] [address] [place] [address], [place] [address] Dec, [facility] [address] [id number] [address] [place] [address], [place] [address] Dec, [facility] [address] [id number] [address] [place] [address], [place] [address] Dec, [facility] [address] [id number] [address] [place] [address], [place] [address] Dec, [facility] [address] [id number] [address] [place] [address], [place] [address] 15 Dec, 2011 [facility] [address] [id number] [address] [place] [address], [place] [address] Dec, [facility] [address] [id number] [address] [place] [address], [place] [address] Dec, [facility] [address] [id number] [address] [place] [address], [place] [address] October, [facility] [address] [id number] [address] [place] [address], [place] [address] October, [facility] [address] [id number] [address] [place] [address], [place] [address] October, [facility] [address] [id number] [address] [place] [address], [place] [address] October, [facility] [address] [id number] [address] [place] [address], [place] [address] October, [facility] [address] [id number] [address] [place] [address], [place] [address] October, [facility] [address] [id number] [address] [place] [address], [place] [address] Oct, [facility] [address] [id number] [address] [place] [address], [place] [address] 24 Oct, 2011 [facility] [address] [id number] [address] [place] [address], [place] [address] Oct, [facility] [address] [id number] [address] [place] [address], [place] [address] Oct, [facility] [address] [id number] [address] [place] [address], [place] [address] Oct, [facility] [address] [id number] [address] [place] [address], [place] [address] Oct, [facility] [address] [id number] [address] [place] [address], [place] [address] Oct, [facility] [address] [id number] [address] [place] [address], [place] [address] Aug, [facility] [address] [id number] [address] [place] [address], [place] [address] 29 Sep, 2011 [facility] [address] [id number] [address] [place] [address], [place] [address] 19 Sep, 2011 [facility] [address] [id number] [address] [place] [address], [place] [address] 13 Sep, 2011 [facility] [address] [id number] [address] [place] [address], [place] [address] 05 Sep, 2011 [facility] [address] [id number] [address] [place] [address], [place] [address] Aug, [facility] [address] [id number] [address] [place] [address], [place] [address] Aug, [facility] [address] [id number] [address] [place] [address], [place] [address] Aug, [facility] [address] [id number] [address] [place] [address], [place] [address] Aug, [facility] [address] [id number] [address] [place] [address], [place] [address] Jul, [facility] [address] [id number] [address] [place] [address], [place] [address] Jul, [facility] [address] [id number] [address] [place] [address], [place] [address] Jul, [facility] [address] [id number] [address] [place] [address], [place] [address] Jul, [facility] [address] [id number] [address] [place] [address], [place] [address] Jun, [facility] [address] [id number] [address] [place] [address], [place] [address] Jun, [facility] [address] [id number] [address] [place] [address], [place] [address] May, [facility] [address] [id number] [address] [place] [address], [place] [address] May, [facility] [address] [id number] [address] [place] [address], [place] [address] May, [facility] [address] [id number] [address] [place] [address], [place] [address] May, [facility] [address] [id number] [address] [place] [address], [place] [address] 07 May, 2011 [facility] [address] [id number] [address] [place] [address], [place] [address] Apr, [facility] [address] [id number] [address] [place] [address] Apr, [facility] [address] [id number] [address] [place] [address] Apr, [facility] [address] [id number] [address] [place] [address] Jan, [facility] [address] [id number] [address] [place] [address] Dec, [facility] [address] [id number] [address] [place] [address] October, [facility] [address] [id number] [address] [place] [address] Jun, [facility] [address] [id number] [address] [place] [address] Apr, [facility] [address] [id number] [address] [place] [address] Apr, [facility] [address] [id number] [address] [place] [address] Apr, [facility] [address] [id number] [address] [place] [address] Jun, IMMUNIZATIONS No Known Immunizations SOCIAL HISTORY Never Assessed REASON FOR VISIT [facility] PLAN OF CARE VITAL SIGNS MEDICATIONS Unknown Medications RESULTS No Results PROCEDURES No Known procedures INSTRUCTIONS MEDICATIONS ADMINISTERED No Known Medications MEDICAL (GENERAL) HISTORY Type Description Date Medical History Psychiatric disorder Medical History Hard of hearing Surgical History Neofibrous tumor Surgical History back injection Hospitalization History Intestinal blockage Hospitalization History past psychiatric hospitalizations x2
--- OUTSIDE RECORDS SUMMARY | 2020-01-25 12:55 | XMS REPORT ---
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 Name Role Phone Migration, Doctor Unavailable Unavailable PROBLEMS Type Condition ICD9-CM Code [id number] Code Onset Dates Condition S tatus SNOMED Code Problem Attention deficit R41.840 Active 76 262254 Problem Chronic hepatitis C without hepatic coma B18.2 Active 031493201 Problem Cannabis abuse F12.10 Active 55078 009 Problem Bipolar disorder, in partial remission, most rec ent episode hypomanic F31.71 Active 004861926 Problem Attention deficit hyperactivity disorder (ADHD), combi luciano type F90.2 Active 18125517 Problem Bipolar 1 disorder F31.9 Active 3 02969205 Problem H/O laminectomy Z98.89 Active 1616 91172 Problem Other chronic pain G89.29 Active 8 0988135 Problem Anxiety disorder, unspecified type F41.9 Active [id number] ALLERGIES No Information ENCOUNTERS Encounter Location Date Diagnosis [facility] [address] [facility] [id number] [address] [place] [address] Oct, [facility] [address] [facility] [id number] [address] [place] [address] Aug, Bipolar disorder, in partial remission, most recent episode hypomanic F31.71 ; Attention deficit hyperactivity disorder (ADHD), combined type F90.2 and Anxiety disorder, unspecified type F41.9 [facility] [address] [facility] [id number] [address] [place] [address] Aug, [facility] [address] [facility] [id number] [address] [place] [address] Aug, Bipolar disorder, in partial remission, most recent episode hypomanic F31.71 [facility] [address] [facility] [id number] [address] [place] [address] Aug, [facility] [address] [id number] [address] [place] [address] Aug, Bipolar disorder, in partial remission, most recent episode hypomanic F31.71 [facility] [address] [id number] [address] [place] [address] Aug, Bipolar disorder, in partial remission, most recent episode hypomanic F31.71 ; Attention deficit hyperactivity disorder (ADHD), combined type F90.2 and Anxiety disorder, unspecified type F41.9 [facility] [address] [id number] [address] [place] [address] Aug, Low back pain M54.5 and Pain in left wrist M25.532 [facility] [address] [id number] [address] [place] [address] Aug, [facility] [address] [id number] [address] [place] [address] Jun, [facility] [address] [facility] [id number] [address] [place] [address] Apr, Bipolar disorder, in partial remission, most recent episode hypomanic F31.71 [facility] [address] [id number] [address] [place] [address] Apr, [facility] [address] [id number] [address] [place] [address] Apr, Bipolar disorder, in partial remission, most recent episode hypomanic F31.71 ; Attention deficit hyperactivity disorder (ADHD), combined type F90.2 ; Anxiety disorder, unspecified type F41.9 and Other fdc (current) 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 Z79.899 [facility] [address] [id number] [address] [place] [address] Apr, Bipolar disorder, in partial remission, most recent episode hypomanic F31.71 [facility] [address] [id number] [address] [place] [address] Apr, Bipolar disorder, in partial remission, most recent episode hypomanic F31.71 [facility] [address] [facility] [id number] [address] [place] [address] Mar, [facility] [address] [id number] [address] [place] [address] Mar, Bipolar disorder, in partial remission, most recent episode hypomanic F31.71 ; Encounter for immunization Z23 and Low back pain M54.5 [facility] [address] [id number] [address] [place] [address] Mar, Bipolar disorder, in partial remission, most recent episode hypomanic F31.71 [facility] [address] [id number] [address] [place] [address] Mar, Bipolar disorder, in partial remission, most recent episode hypomanic F31.71 [facility] [address] [facility] [id number] [address] [place] [address] Jan, Bipolar disorder, in partial remission, most recent episode hypomanic F31.71 [facility] [address] [facility] [id number] [address] [place] [address] Jan, Bipolar disorder, in partial remission, most recent episode hypomanic F31.71 [facility] [address] [facility] [id number] [address] [place] [address] Dec, Bipolar disorder, in partial remission, most recent episode hypomanic F31.71 [facility] [address] [facility] [id number] [address] [place] [address] Dec, Bipolar disorder, in partial remission, most recent episode hypomanic F31.71 ; Attention deficit hyperactivity disorder (ADHD), combined type F90.2 ; Anxiety disorder, unspecified type F41.9 and Other fdc (current) 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 Z79.899 [facility] [address] [facility] [id number] [address] [place] [address] Dec, Bipolar disorder, in partial remission, most recent episode hypomanic F31.71 [facility] [address] [facility] [id number] [address] [place] [address] Dec, Bipolar disorder, in partial remission, most recent episode hypomanic F31.71 [facility] [address] [id number] [address] [place] [address] October, Bipolar disorder, in partial remission, most recent episode hypomanic F31.71 [facility] [address] [id number] [address] [place] [address] October, [facility] [address] [id number] [address] [place] [address] October, [facility] [address] [id number] [address] [place] [address] Oct, Bipolar disorder, in partial remission, most recent episode hypomanic F31.71 ; Attention deficit hyperactivity disorder (ADHD), combined type F90.2 ; Anxiety disorder, unspecified type F41.9 and Encounter for drug screening Z02.83 [facility] [address] [id number] [address] [place] [address] Oct, Bipolar disorder, in partial remission, most recent episode hypomanic F31.71 [facility] [address] [id number] [address] [place] [address] Oct, Bipolar disorder, in partial remission, most recent episode hypomanic F31.71 [facility] [address] [id number] [address] [place] [address] Aug, Bipolar disorder, in partial remission, most recent episode hypomanic F31.71 [facility] [address] [id number] [address] [place] [address] Aug, Bipolar disorder, in partial remission, most recent episode hypomanic F31.71 [facility] [address] [id number] [address] [place] [address] Aug, Bipolar disorder, in partial remission, most recent episode hypomanic F31.71 [facility] [address] [id number] [address] [place] [address] Jul, Bipolar disorder, in partial remission, most recent episode hypomanic F31.71 ; Attention deficit hyperactivity disorder (ADHD), combined type F90.2 and Anxiety disorder, unspecified type F41.9 [facility] [address] [id number] [address] [place] [address] Jul, Bipolar disorder, in partial remission, most recent episode hypomanic F31.71 [facility] [address] [id number] [address] [place] [address] Jun, Bipolar disorder, in partial remission, most recent episode hypomanic F31.71 [facility] [address] [id number] [address] [place] [address] May, Bipolar disorder, in partial remission, most recent episode hypomanic F31.71 [facility] [address] [facility] [id number] [address] [place] [address] May, Bipolar disorder, in partial remission, most recent episode hypomanic F31.71 [facility] [address] [facility] [id number] [address] [place] [address] Apr, [facility] [address] [id number] [address] [place] [address] Apr, Bipolar disorder, in partial remission, most recent episode hypomanic F31.71 ; Attention deficit hyperactivity disorder (ADHD), combined type F90.2 ; Anxiety disorder, unspecified type F41.9 and Cannabis abuse F12.10 [facility] [address] [id number] [address] [place] [address] Apr, Attention deficit hyperactiv ity disorder (ADHD), combined type F90.2 [facility] [address] [id number] [address] [place] [address] Mar, Attention deficit hyperactiv ity disorder (ADHD), combined type F90.2 [facility] [address] [facility] [id number] [address] [place] [address] Mar, Anxiety disorder, unspecifie d type F41.9 [facility] [address] [facility] [id number] [address] [place] [address] Jan, Attention deficit hyperactiv ity disorder (ADHD), combined type F90.2 [facility] [address] [facility] [id number] [address] [place] [address] Jan, Anxiety disorder, unspecifie d type F41.9 [facility] [address] [facility] [id number] [address] [place] [address] Jan, Other chronic pain G89.29 ; Chronic hepatitis C without hepatic coma B18.2 and Bipolar 1 disorder F31.9 [facility] [address] [facility] [id number] [address] [place] [address] Dec, Attention deficit hyperactiv ity disorder (ADHD), combined type F90.2 [facility] [address] [facility] [id number] [address] [place] [address] Dec, Bipolar disorder, in partial remission, most recent episode hypomanic F31.71 ; Attention deficit hyperactivity disorder (ADHD), combined type F90.2 and Anxiety disorder, unspecified type F41.9 [facility] [address] [facility] [id number] [address] [place] [address] Dec, Bipolar disorder, in partial remission, most recent episode hypomanic F31.71 ; Attention deficit hyperactivity disorder (ADHD), combined type F90.2 and Anxiety disorder, unspecified type F41.9 [facility] [address] [facility] [id number] [address] [place] [address] Dec, Bipolar 1 disorder F31.9 and Attention deficit R41.840 [facility] [address] [facility] [id number] [address] [place] [address] Oct, Other chronic pain G89.29 ; Alopecia L65.9 and Screening, lipid Z13.220 [facility] [address] [facility] [id number] [address] [place] [address] Oct, [facility] [address] [facility] [id number] [address] [place] [address] Aug, [facility] [address] [facility] [id number] [address] [place] [address] Aug, Eustachian tube dysfunction, right H69.81 ; Vertigo R42 and Other chronic pain G89.29 [facility] [address] [id number] [address] [place] [address] Aug, [facility] [address] [id number] [address] [place] [address] Jun, [facility] [address] [id number] [address] [place] [address] Jun, Low back pain M54.5 and Othe r chronic pain G89.29 [facility] [address] [id number] [address] [place] [address] Jun, [facility] [address] [id number] [address] [place] [address] May, [facility] [address] [id number] [address] [place] [address] Jan, [facility] [address] [id number] [address] [place] [address] Dec, [facility] [address] [id number] [address] [place] [address] Dec, [facility] [address] [id number] [address] [place] [address] Jun, [facility] [address] [id number] [address] [place] [address] Apr, Eustachian tube dysfunction, unspecified laterality H69.80 ; Hot flashes N95.1 and Encounter for immunization Z23 [facility] [address] [id number] [address] [place] [address] Jan, [facility] [address] [id number] [address] [place] [address] Jan, [facility] [address] [id number] [address] [place] [address] Jan, [facility] [address] [id number] [address] [place] [address] Jan, [facility] [address] [id number] [address] [place] [address] Jan, Encounter to establish care V65.8 ; Bipolar 1 disorder 296.7 ; Abdominal pain 789.00 ; Constipation 564.00 ; Hard of hearing 389.9 and Drug abuse 305.90 [facility] [address] [id number] [address] [place] [address] Dec, [facility] [address] [id number] [address] [place] [address] October, [facility] [address] [id number] [address] [place] [address] October, [facility] [address] [id number] [address] [place] [address] Oct, [facility] [address] [id number] [address] [place] [address] Oct, [facility] [address] [id number] [address] [place] [address] Oct, [facility] [address] [id number] [address] [place] [address] Aug, [facility] [address] [id number] [address] [place] [address] Aug, [facility] [address] [id number] [address] [place] [address] Aug, [facility] [address] [id number] [address] [place] [address] Aug, [facility] [address] [id number] [address] [place] [address] Aug, [facility] [address] [id number] [address] [place] [address] Aug, [facility] [address] [id number] [address] [place] [address], [place] [address] Aug, 2014 [facility] [address] [id number] [address] [place] [address], [place] [address] Aug, 2014 [facility] [address] [id number] [address] [place] [address], [place] [address] Aug, 2014 [facility] [address] [id number] [address] [place] [address], [place] [address] Aug, 2014 [facility] [address] [id number] [address] [place] [address], [place] [address] Aug, 2014 [facility] [address] [id number] [address] [place] [address], [place] [address] Aug, 2014 [facility] [address] [id number] [address] [place] [address], [place] [address] Aug, 2014 [facility] [address] [id number] [address] [place] [address], [place] [address] Aug, 2014 [facility] [address] [id number] [address] [place] [address], [place] [address] Aug, [facility] [address] [id number] [address] [place] [address], [place] [address] Jul, [facility] [address] [id number] [address] [place] [address], [place] [address] Jul, [facility] [address] [id number] [address] [place] [address], [place] [address] Jul, [facility] [address] [id number] [address] [place] [address], [place] [address] Jul, [facility] [address] [id number] [address] [place] [address], [place] [address] Jul, [facility] [address] [id number] [address] [place] [address], [place] [address] Jul, [facility] [address] [id number] [address] [place] [address], [place] [address] Jul, [facility] [address] [id number] [address] [place] [address], [place] [address] Jul, [facility] [address] [id number] [address] [place] [address], [place] [address] Jun, [facility] [address] [id number] [address] [place] [address], [place] [address] Jun, [facility] [address] [id number] [address] [place] [address], [place] [address] Jun, [facility] [address] [id number] [address] [place] [address], [place] [address] Jun, [facility] [address] [id number] [address] [place] [address], [place] [address] Jun, [facility] [address] [id number] [address] [place] [address], [place] [address] Jun, [facility] [address] [id number] [address] [place] [address], [place] [address] Jun, [facility] [address] [id number] [address] [place] [address], [place] [address] Jun, [facility] [address] [id number] [address] [place] [address], [place] [address] Jun, [facility] [address] [id number] [address] [place] [address], [place] [address] Jun, [facility] [address] [id number] [address] [place] [address], [place] [address] Jun, [facility] [address] [id number] [address] [place] [address], [place] [address] May, [facility] [address] [id number] [address] [place] [address], [place] [address] May, [facility] [address] [id number] [address] [place] [address], [place] [address] May, [facility] [address] [id number] [address] [place] [address], [place] [address] May, [facility] [address] [id number] [address] [place] [address], [place] [address] May, [facility] [address] [id number] [address] [place] [address], [place] [address] May, [facility] [address] [id number] [address] [place] [address], [place] [address] May, [facility] [address] [id number] [address] [place] [address], [place] [address] Apr, [facility] [address] [id number] [address] [place] [address], [place] [address] Apr, [facility] [address] [id number] [address] [place] [address], [place] [address] Apr, [facility] [address] [id number] [address] [place] [address], [place] [address] Apr, [facility] [address] [id number] [address] [place] [address], [place] [address] Apr, [facility] [address] [id number] [address] [place] [address], [place] [address] Apr, [facility] [address] [id number] [address] [place] [address], [place] [address] Mar, [facility] [address] [id number] [address] [place] [address], [place] [address] 29 Mar, 2013 [facility] [address] [id number] [address] [place] [address], [place] [address] 10 Mar, 2013 [facility] [address] [id number] [address] [place] [address], [place] [address] 10 Mar, 2013 [facility] [address] [id number] [address] [place] [address], [place] [address] Mar, 2013 [facility] [address] [id number] [address] [place] [address], [place] [address] Mar, [facility] [address] [id number] [address] [place] [address], [place] [address] Jan, [facility] [address] [id number] [address] [place] [address], [place] [address] Jan, [facility] [address] [id number] [address] [place] [address], [place] [address] Jan, [facility] [address] [id number] [address] [place] [address], [place] [address] Jan, [facility] [address] [id number] [address] [place] [address], [place] [address] Dec, [facility] [address] [id number] [address] [place] [address], [place] [address] Dec, [facility] [address] [id number] [address] [place] [address], [place] [address] Dec, [facility] [address] [id number] [address] [place] [address], [place] [address] Dec, [facility] [address] [id number] [address] [place] [address], [place] [address] Dec, [facility] [address] [id number] [address] [place] [address], [place] [address] Dec, [facility] [address] [id number] [address] [place] [address], [place] [address] Dec, [facility] [address] [id number] [address] [place] [address], [place] [address] Dec, [facility] [address] [id number] [address] [place] [address], [place] [address] Dec, [facility] [address] [id number] [address] [place] [address], [place] [address] Dec, [facility] [address] [id number] [address] [place] [address], [place] [address] Dec, [facility] [address] [id number] [address] [place] [address], [place] [address] Dec, [facility] [address] [id number] [address] [place] [address], [place] [address] October, [facility] [address] [id number] [address] [place] [address], [place] [address] October, [facility] [address] [id number] [address] [place] [address], [place] [address] October, [facility] [address] [id number] [address] [place] [address], [place] [address] October, [facility] [address] [id number] [address] [place] [address], [place] [address] October, [facility] [address] [id number] [address] [place] [address], [place] [address] October, [facility] [address] [id number] [address] [place] [address], [place] [address] Oct, [facility] [address] [id number] [address] [place] [address], [place] [address] Oct, [facility] [address] [id number] [address] [place] [address], [place] [address] Oct, [facility] [address] [id number] [address] [place] [address], [place] [address] Oct, [facility] [address] [id number] [address] [place] [address], [place] [address] Oct, [facility] [address] [id number] [address] [place] [address], [place] [address] Oct, [facility] [address] [id number] [address] [place] [address], [place] [address] Oct, [facility] [address] [id number] [address] [place] [address], [place] [address] Oct, [facility] [address] [id number] [address] [place] [address], [place] [address] Oct, [facility] [address] [id number] [facility] [place] [place] [address] 09 Oct, 2013 [facility] [address] [id number] [facility] [place] [place] [address] Oct, [facility] [address] [id number] [address] [place] [address], [place] [address] Oct, [facility] [address] [id number] [address] [place] [address], [place] [address] Aug, [facility] [address] [id number] [address] [place] [address], [place] [address] Aug, [facility] [address] [id number] [address] [place] [address], [place] [address] Aug, [facility] [address] [id number] [address] [place] [address], [place] [address] Aug, [facility] [address] [id number] [address] [place] [address], [place] [address] Aug, [facility] [address] [id number] [address] [place] [address], [place] [address] 05 Aug, 2013 [facility] [address] [id number] [address] [place] [address], [place] [address] Aug, [facility] [address] [id number] [address] [place] [address], [place] [address] Aug, [facility] [address] [id number] [address] [place] [address], [place] [address] Aug, [facility] [address] [id number] [address] [place] [address], [place] [address] Aug, [facility] [address] [id number] [address] [place] [address], [place] [address] Aug, [facility] [address] [id number] [address] [place] [address], [place] [address] Aug, [facility] [address] [id number] [address] [place] [address], [place] [address] Aug, [facility] [address] [id number] [address] [place] [address], [place] [address] 20 Aug, 2013 [facility] [address] [id number] [address] [place] [address], [place] [address] 14 Aug, 2013 [facility] [address] [id number] [address] [place] [address], [place] [address] 14 Aug, 2013 [facility] [address] [id number] [address] [place] [address], [place] [address] 14 Aug, 2013 [facility] [address] [id number] [address] [place] [address], [place] [address] 14 Aug, 2013 [facility] [address] [id number] [address] [place] [address], [place] [address] 07 Aug, 2013 [facility] [address] [id number] [address] [place] [address], [place] [address] 07 Aug, 2013 [facility] [address] [id number] [address] [place] [address], [place] [address] 06 Aug, 2013 [facility] [address] [id number] [address] [place] [address], [place] [address] 06 Aug, 2013 [facility] [address] [id number] [address] [place] [address], [place] [address] 04 Aug, 2013 [facility] [address] [id number] [address] [place] [address], [place] [address] 04 Aug, 2013 [facility] [address] [id number] [address] [place] [address], [place] [address] Aug, [facility] [address] [id number] [address] [place] [address], [place] [address] Jul, [facility] [address] [id number] [address] [place] [address], [place] [address] Jul, [facility] [address] [id number] [address] [place] [address], [place] [address] Jul, [facility] [address] [id number] [address] [place] [address], [place] [address] Jul, [facility] [address] [id number] [address] [place] [address], [place] [address] Jul, [facility] [address] [id number] [address] [place] [address], [place] [address] Jul, [facility] [address] [id number] [address] [place] [address], [place] [address] Jul, [facility] [address] [id number] [address] [place] [address], [place] [address] Jul, [facility] [address] [id number] [address] [place] [address], [place] [address] Jul, [facility] [address] [id number] [address] [place] [address], [place] [address] Jul, [facility] [address] [id number] [address] [place] [address], [place] [address] Jul, [facility] [address] [id number] [address] [place] [address], [place] [address] Jul, [facility] [address] [id number] [address] [place] [address], [place] [address] Jul, [facility] [address] [id number] [address] [place] [address], [place] [address] Jul, [facility] [address] [id number] [address] [place] [address], [place] [address] Jul, [facility] [address] [id number] [address] [place] [address], [place] [address] Jul, [facility] [address] [id number] [address] [place] [address], [place] [address] Jul, [facility] [address] [id number] [address] [place] [address], [place] [address] Jul, [facility] [address] [id number] [address] [place] [address], [place] [address] Jul, [facility] [address] [id number] [address] [place] [address], [place] [address] Jul, [facility] [address] [id number] [address] [place] [address], [place] [address] Jun, [facility] [address] [id number] [address] [place] [address], [place] [address] Jun, [facility] [address] [id number] [address] [place] [address], [place] [address] Jun, [facility] [address] [id number] [address] [place] [address], [place] [address] Jun, [facility] [address] [id number] [address] [place] [address], [place] [address] Jun, [facility] [address] [id number] [address] [place] [address], [place] [address] Jun, [facility] [address] [id number] [address] [place] [address], [place] [address] Jun, [facility] [address] [id number] [address] [place] [address], [place] [address] Jun, [facility] [address] [id number] [address] [place] [address], [place] [address] Jun, [facility] [address] [id number] [address] [place] [address], [place] [address] Jun, [facility] [address] [id number] [address] [place] [address], [place] [address] Jun, [facility] [address] [id number] [address] [place] [address], [place] [address] Jun, [facility] [address] [id number] [address] [place] [address], [place] [address] Jun, [facility] [address] [id number] [address] [place] [address], [place] [address] Jun, [facility] [address] [id number] [address] [place] [address], [place] [address] 20 Jun, 2013 [facility] [address] [id number] [address] [place] [address], [place] [address] 18 Jun, 2013 [facility] [address] [id number] [address] [place] [address], [place] [address] 18 Jun, 2013 [facility] [address] [id number] [address] [place] [address], [place] [address] 17 Jun, 2013 [facility] [address] [id number] [address] [place] [address], [place] [address] 17 Jun, 2013 [facility] [address] [id number] [address] [place] [address], [place] [address] 13 Jun, 2013 [facility] [address] [id number] [address] [place] [address], [place] [address] 12 Jun, 2013 [facility] [address] [id number] [address] [place] [address], [place] [address] 12 Jun, 2013 [facility] [address] [id number] [address] [place] [address], [place] [address] 09 Jun, 2013 [facility] [address] [id number] [address] [place] [address], [place] [address] 05 Jun, 2013 [facility] [address] [id number] [address] [place] [address], [place] [address] 05 Jun, 2013 [facility] [address] [id number] [address] [place] [address], [place] [address] 04 Jun, 2013 [facility] [address] [id number] [address] [place] [address], [place] [address] 04 Jun, 2013 [facility] [address] [id number] [address] [place] [address], [place] [address] 17 May, 2013 [facility] [address] [id number] [address] [place] [address], [place] [address] 17 May, 2013 [facility] [address] [id number] [address] [place] [address], [place] [address] May, [facility] [address] [id number] [address] [place] [address], [place] [address] May, [facility] [address] [id number] [address] [place] [address], [place] [address] May, [facility] [address] [id number] [address] [place] [address], [place] [address] May, [facility] [address] [id number] [address] [place] [address], [place] [address] Apr, [facility] [address] [id number] [address] [place] [address], [place] [address] Apr, [facility] [address] [id number] [address] [place] [address], [place] [address] Apr, [facility] [address] [id number] [address] [place] [address], [place] [address] Apr, [facility] [address] [id number] [address] [place] [address], [place] [address] Apr, [facility] [address] [id number] [address] [place] [address], [place] [address] Apr, [facility] [address] [id number] [address] [place] [address], [place] [address] Apr, [facility] [address] [id number] [address] [place] [address], [place] [address] Apr, [facility] [address] [id number] [address] [place] [address], [place] [address] 26 Mar, 2013 [facility] [address] [id number] [address] [place] [address], [place] [address] 24 Sep2012 [facility] [address] [id number] [address] [place] [address], [place] [address] 17 Mar, 2013 [facility] [address] [id number] [address] [place] [address], [place] [address] 17 Mar, 2013 [facility] [address] [id number] [address] [place] [address] [place] [address] 11 Mar, 2013 [facility] [address] [id number] [address] [place] [address], [place] [address] 10 Mar, 2013 [facility] [address] [id number] [address] [place] [address], [place] [address] 05 Mar, 2013 [facility] [address] [id number] [address] [place] [address], [place] [address] 04 Mar, 2013 [facility] [address] [id number] [address] [place] [address], [place] [address] 20 Jan, 2013 [facility] [address] [id number] [address] [place] [address], [place] [address] Jan, [facility] [address] [id number] [address] [place] [address], [place] [address] 14 Jan, 2013 [facility] [address] [id number] [address] [place] [address], [place] [address] Jan, [facility] [address] [id number] [address] [place] [address], [place] [address] Jan, [facility] [address] [id number] [address] [place] [address], [place] [address] Jan, [facility] [address] [id number] [address] [place] [address], [place] [address] Dec, [facility] [address] [id number] [address] [place] [address], [place] [address] Dec, [facility] [address] [id number] [address] [place] [address], [place] [address] Dec, [facility] [address] [id number] [address] [place] [address], [place] [address] Dec, [facility] [address] [id number] [address] [place] [address], [place] [address] Dec, [facility] [address] [id number] [address] [place] [address], [place] [address] 17 Dec, 2012 [facility] [address] [id number] [address] [place] [address], [place] [address] 16 Dec, 2012 [facility] [address] [id number] [address] [place] [address], [place] [address] 16 Dec, 2012 [facility] [address] [id number] [address] [place] [address], [place] [address] 15 Dec, 2012 [facility] [address] [id number] [address] [place] [address], [place] [address] 10 Dec, 2012 [facility] [address] [id number] [address] [place] [address], [place] [address] 28 Dec, 2012 [facility] [address] [id number] [address] [place] [address], [place] [address] Dec, [facility] [address] [id number] [address] [place] [address], [place] [address] Dec, [facility] [address] [id number] [address] [place] [address], [place] [address] Dec, [facility] [address] [id number] [address] [place] [address], [place] [address] Dec, [facility] [address] [id number] [address] [place] [address], [place] [address] Dec, [facility] [address] [id number] [address] [place] [address], [place] [address] October, [facility] [address] [id number] [address] [place] [address], [place] [address] October, [facility] [address] [id number] [address] [place] [address], [place] [address] October, [facility] [address] [id number] [address] [place] [address], [place] [address] October, [facility] [address] [id number] [address] [place] [address], [place] [address] October, [facility] [address] [id number] [address] [place] [address], [place] [address] October, [facility] [address] [id number] [address] [place] [address], [place] [address] October, [facility] [address] [id number] [address] [place] [address], [place] [address] Oct, [facility] [address] [id number] [address] [place] [address], [place] [address] Oct, [facility] [address] [id number] [address] [place] [address], [place] [address] Oct, [facility] [address] [id number] [address] [place] [address], [place] [address] Oct, [facility] [address] [id number] [address] [place] [address], [place] [address] Oct, [facility] [address] [id number] [address] [place] [address], [place] [address] Oct, [facility] [address] [id number] [address] [place] [address], [place] [address] Oct, [facility] [address] [id number] [address] [place] [address], [place] [address] 15 Oct, 2012 [facility] [address] [id number] [address] [place] [address], [place] [address] Oct, [facility] [address] [id number] [address] [place] [address], [place] [address] Oct, [facility] [address] [id number] [address] [place] [address], [place] [address] Oct, [facility] [address] [id number] [address] [place] [address], [place] [address] Oct, [facility] [address] [id number] [address] [place] [address], [place] [address] Aug, [facility] [address] [id number] [address] [place] [address], [place] [address] Aug, [facility] [address] [id number] [address] [place] [address], [place] [address] 12 Aug, 2012 [facility] [address] [id number] [address] [place] [address], [place] [address] 06 Aug, 2012 [facility] [address] [id number] [address] [place] [address], [place] [address] 05 Aug, 2012 [facility] [address] [id number] [address] [place] [address], [place] [address] 05 Aug, 2012 [facility] [address] [id number] [address] [place] [address], [place] [address] 20 Aug, 2012 [facility] [address] [id number] [address] [place] [address], [place] [address] 14 Aug, 2012 [facility] [address] [id number] [address] [place] [address], [place] [address] 12 Aug, 2012 [facility] [address] [id number] [address] [place] [address], [place] [address] Aug, [facility] [address] [id number] [address] [place] [address], [place] [address] Jul, [facility] [address] [id number] [address] [place] [address], [place] [address] Jul, [facility] [address] [id number] [address] [place] [address], [place] [address] Jul, [facility] [address] [id number] [address] [place] [address], [place] [address] Jun, [facility] [address] [id number] [address] [place] [address], [place] [address] Jun, [facility] [address] [id number] [address] [place] [address], [place] [address] Jun, [facility] [address] [id number] [address] [place] [address], [place] [address] Jun, [facility] [address] [id number] [address] [place] [address], [place] [address] Jun, [facility] [address] [id number] [address] [place] [address], [place] [address] 14 Jun, 2012 [facility] [address] [id number] [address] [place] [address], [place] [address] 14 Jun, 2012 [facility] [address] [id number] [address] [place] [address], [place] [address] 13 Jun, 2012 [facility] [address] [id number] [address] [place] [address], [place] [address] 13 Jun, 2012 [facility] [address] [id number] [address] [place] [address], [place] [address] 11 Jun, 2012 [facility] [address] [id number] [address] [place] [address], [place] [address] 11 Jun, 2012 [facility] [address] [id number] [address] [place] [address], [place] [address] 11 Jun, 2012 [facility] [address] [id number] [address] [place] [address], [place] [address] 11 Jun, 2012 [facility] [address] [id number] [address] [place] [address], [place] [address] 07 Jun, 2012 [facility] [address] [id number] [address] [place] [address], [place] [address] 07 Jun, 2012 [facility] [address] [id number] [address] [place] [address], [place] [address] 06 Jun, 2012 [facility] [address] [id number] [address] [place] [address], [place] [address] 06 Jun, 2012 [facility] [address] [id number] [address] [place] [address], [place] [address] Jun, [facility] [address] [id number] [address] [place] [address], [place] [address] 06 Jun, 2012 [facility] [address] [id number] [address] [place] [address], [place] [address] 05 Jun, 2012 [facility] [address] [id number] [address] [place] [address], [place] [address] Jun, [facility] [address] [id number] [address] [place] [address], [place] [address] Jun, [facility] [address] [id number] [address] [place] [address], [place] [address] Jun, [facility] [address] [id number] [address] [place] [address], [place] [address] May, [facility] [address] [id number] [address] [place] [address], [place] [address] May, [facility] [address] [id number] [address] [place] [address], [place] [address] May, [facility] [address] [id number] [address] [place] [address], [place] [address] May, [facility] [address] [id number] [address] [place] [address], [place] [address] May, [facility] [address] [id number] [address] [place] [address], [place] [address] May, [facility] [address] [id number] [address] [place] [address], [place] [address] May, [facility] [address] [id number] [address] [place] [address], [place] [address] May, [facility] [address] [id number] [address] [place] [address], [place] [address] Apr, [facility] [address] [id number] [address] [place] [address] Apr, [facility] [address] [id number] [address] [place] [address], [place] [address] Apr, [facility] [address] [id number] [address] [place] [address], [place] [address] Apr, [facility] [address] [id number] [address] [place] [address] Apr, [facility] [address] [id number] [address] [place] [address], [place] [address] Apr, [facility] [address] [id number] [address] [place] [address], [place] [address] Apr, [facility] [address] [id number] [address] [place] [address], [place] [address] Apr, [facility] [address] [id number] [address] [place] [address], [place] [address] Apr, [facility] [address] [id number] [address] [place] [address], [place] [address] Apr, [facility] [address] [id number] [address] [place] [address], [place] [address] Apr, [facility] [address] [id number] [address] [place] [address], [place] [address] Apr, [facility] [address] [id number] [address] [place] [address], [place] [address] Mar, [facility] [address] [id number] [address] [place] [address], [place] [address] 18 Mar, 2012 [facility] [address] [id number] [address] [place] [address] Mar, [facility] [address] [id number] [address] [place] [address] Mar, [facility] [address] [place] [address] [id number] [address] [place] [id number] Mar, [facility] [address] [place] [address] [id number] [address] [place] [id number] Mar, [facility] [address] [id number] [address] [place] [address], [place] [address] Mar, [facility] [address] [id number] [address] [place] [address], [place] [address] Jan, [facility] [address] [id number] [address] [place] [address] Jan, [facility] [address] [id number] [facility], [place] [id number] Jan, [facility] [address] [id number] [facility] [id number] Jan, [facility] [address] [id number] [address] [place] [address], [place] [address] Jan, [facility] [address] [id number] [address] [place] [address], [place] [address] Jan, [facility] [address] [id number] [address] [place] [address], [place] [address] Jan, [facility] [address] [id number] [address] [place] [address], [place] [address] Jan, [facility] [address] [id number] [address] [place] [address], [place] [address] Jan, [facility] [address] [id number] [address] [place] [address], [place] [address] Jan, [facility] [address] [id number] [address] [place] [address], [place] [address] Jan, [facility] [address] [id number] [address] [place] [address], [place] [address] Dec, [facility] [address] [id number] [address] [place] [address], [place] [address] Dec, [facility] [address] [id number] [address] [place] [address], [place] [address] Dec, [facility] [address] [id number] [address] [place] [address], [place] [address] Dec, [facility] [address] [id number] [address] [place] [address], [place] [address] Dec, [facility] [address] [id number] [address] [place] [address], [place] [address] Dec, [facility] [address] [id number] [address] [place] [address] [place] [address] 18 Jan, 2012 [facility] [address] [id number] [address] [place] [address], [place] [address] 17 Jan, 2012 [facility] [address] [id number] [address] [place] [address], [place] [address] 16 Jan, 2012 [facility] [address] [id number] [address] [place] [address], [place] [address] 13 Jan, 2012 [facility] [address] [id number] [address] [place] [address], [place] [address] 13 Jan, 2012 [facility] [address] [id number] [address] [place] [address], [place] [address] 02 Jan, 2012 [facility] [address] [id number] [address] [place] [address], [place] [address] Dec, [facility] [address] [id number] [address] [place] [address], [place] [address] Dec, [facility] [address] [id number] [address] [place] [address], [place] [address] Dec, [facility] [address] [id number] [address] [place] [address], [place] [address] Dec, [facility] [address] [id number] [address] [place] [address], [place] [address] 15 Dec, 2011 [facility] [address] [id number] [address] [place] [address], [place] [address] Dec, [facility] [address] [id number] [address] [place] [address], [place] [address] Dec, [facility] [address] [id number] [address] [place] [address], [place] [address] October, [facility] [address] [id number] [address] [place] [address], [place] [address] October, [facility] [address] [id number] [address] [place] [address], [place] [address] October, [facility] [address] [id number] [address] [place] [address], [place] [address] October, [facility] [address] [id number] [address] [place] [address], [place] [address] October, [facility] [address] [id number] [address] [place] [address], [place] [address] October, [facility] [address] [id number] [address] [place] [address], [place] [address] Oct, [facility] [address] [id number] [address] [place] [address], [place] [address] 24 Oct, 2011 [facility] [address] [id number] [address] [place] [address], [place] [address] Oct, [facility] [address] [id number] [address] [place] [address], [place] [address] Oct, [facility] [address] [id number] [address] [place] [address], [place] [address] Oct, [facility] [address] [id number] [address] [place] [address], [place] [address] Oct, [facility] [address] [id number] [address] [place] [address], [place] [address] Oct, [facility] [address] [id number] [address] [place] [address], [place] [address] Aug, [facility] [address] [id number] [address] [place] [address], [place] [address] 29 Sep, 2011 [facility] [address] [id number] [address] [place] [address], [place] [address] 19 Sep, 2011 [facility] [address] [id number] [address] [place] [address], [place] [address] 13 Sep, 2011 [facility] [address] [id number] [address] [place] [address], [place] [address] 05 Sep, 2011 [facility] [address] [id number] [address] [place] [address], [place] [address] Aug, [facility] [address] [id number] [address] [place] [address], [place] [address] Aug, [facility] [address] [id number] [address] [place] [address], [place] [address] Aug, [facility] [address] [id number] [address] [place] [address], [place] [address] Aug, [facility] [address] [id number] [address] [place] [address], [place] [address] Jul, [facility] [address] [id number] [address] [place] [address], [place] [address] Jul, [facility] [address] [id number] [address] [place] [address], [place] [address] Jul, [facility] [address] [id number] [address] [place] [address], [place] [address] Jul, [facility] [address] [id number] [address] [place] [address], [place] [address] Jun, [facility] [address] [id number] [address] [place] [address], [place] [address] Jun, [facility] [address] [id number] [address] [place] [address], [place] [address] May, [facility] [address] [id number] [address] [place] [address], [place] [address] May, [facility] [address] [id number] [address] [place] [address], [place] [address] May, [facility] [address] [id number] [address] [place] [address], [place] [address] May, [facility] [address] [id number] [address] [place] [address], [place] [address] 07 May, 2011 [facility] [address] [id number] [address] [place] [address], [place] [address] Apr, [facility] [address] [id number] [address] [place] [address] Apr, [facility] [address] [id number] [address] [place] [address] Apr, [facility] [address] [id number] [address] [place] [address] Jan, [facility] [address] [id number] [address] [place] [address] Dec, [facility] [address] [id number] [address] [place] [address] October, [facility] [address] [id number] [address] [place] [address] Jun, [facility] [address] [id number] [address] [place] [address] Apr, [facility] [address] [id number] [address] [place] [address] Apr, [facility] [address] [id number] [address] [place] [address] Apr, [facility] [address] [id number] [address] [place] [address] Jun, IMMUNIZATIONS No Known Immunizations SOCIAL HISTORY Never Assessed REASON FOR [place]IT [facility] [place] VITAL SIGNS MEDICATIONS Unknown Medications RESULTS No Results PROCEDURES No Known procedures INSTRUCTIONS MEDICATIONS ADMINISTERED No Known Medications MEDICAL (GENERAL) HISTORY Type Description Date Medical History Psychiatric disorder Medical History Hard of hearing Surgical History Neofibrous tumor Surgical History back injection Hospitalization History Intestinal blockage Hospitalization History past psychiatric hospitalizations x2
--- OUTSIDE RECORDS SUMMARY | 2020-01-25 12:55 | XMS REPORT ---
Author Author Ana Mayer Doctor Organization [facility] Address Unknown Phone Unavailable Care Team Providers Care Collection Specialist Name Role Phone Migration, Doctor Unavailable Unavailable PROBLEMS Type Condition ICD9-CM Code [id number] Code Onset Dates Condition S tatus SNOMED Code Problem Attention deficit R41.840 Active 76 743849 Problem Chronic hepatitis C without hepatic coma B18.2 Active 967800595 Problem Cannabis abuse F12.10 Active 34491 009 Problem Bipolar disorder, in partial remission, most rec ent episode hypomanic F31.71 Active 217796237 Problem Attention deficit hyperactivity disorder (ADHD), combi luciano type F90.2 Active 71157351 Problem Bipolar 1 disorder F31.9 Active 3 49373166 Problem H/O laminectomy Z98.89 Active 1616 43870 Problem Other chronic pain G89.29 Active 8 3547827 Problem Anxiety disorder, unspecified type F41.9 Active [id number] ALLERGIES No Information ENCOUNTERS Encounter Location Date Diagnosis [facility] [address] [facility] [id number] [address] [place] [phone] Oct, [facility] [address] [facility] [id number] [address] [place] [phone] Aug, Bipolar disorder, in partial remission, most recent episode hypomanic F31.71 ; Attention deficit hyperactivity disorder (ADHD), combined type F90.2 and Anxiety disorder, unspecified type F41.9 [facility] [address] [facility] [id number] [address] [place] [phone] Aug, [facility] [address] [facility] [id number] [address] [place] [phone] Aug, Bipolar disorder, in partial remission, most recent episode hypomanic F31.71 [facility] [address] [facility] [id number] [address] [place] [phone] Aug, [facility] [address] [id number] [address] [place] [address] Aug, Bipolar disorder, in partial remission, most recent episode hypomanic F31.71 [facility] [address] [id number] [address] [place] [address] Aug, Bipolar disorder, in partial remission, most recent episode hypomanic F31.71 ; Attention deficit hyperactivity disorder (ADHD), combined type F90.2 and Anxiety disorder, unspecified type F41.9 [facility] [address] [id number] [address] [place] [address] Aug, Low back pain M54.5 and Pain in left wrist M25.532 [facility] [address] [id number] [address] [place] [phone] Aug, [facility] [address] [id number] [address] [place] [phone] Jun, [facility] [address] [facility] [id number] [address] [place] [phone] Apr, Bipolar disorder, in partial remission, most recent episode hypomanic F31.71 [facility] [address] [id number] [address] [place] [phone] Apr, [facility] [address] [id number] [address] [place] [address] Apr, Bipolar disorder, in partial remission, most recent episode hypomanic F31.71 ; Attention deficit hyperactivity disorder (ADHD), combined type F90.2 ; Anxiety disorder, unspecified type F41.9 and Other long-term (current) 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 Z79.899 [facility] [address] [id number] [address] [place] [address] Apr, Bipolar disorder, in partial remission, most recent episode hypomanic F31.71 [facility] [address] [id number] [address] [place] [address] Apr, Bipolar disorder, in partial remission, most recent episode hypomanic F31.71 [facility] [address] [facility] [id number] [address] [place] [phone] Mar, [facility] [address] [id number] [address] [place] [address] Mar, Bipolar disorder, in partial remission, most recent episode hypomanic F31.71 ; Encounter for immunization Z23 and Low back pain M54.5 [facility] [address] [id number] [address] [place] [phone] Mar, Bipolar disorder, in partial remission, most recent episode hypomanic F31.71 [facility] [address] [id number] [address] [place] [phone] Mar, Bipolar disorder, in partial remission, most recent episode hypomanic F31.71 [facility] [address] [facility] [id number] [address] [place] [phone] Jan, Bipolar disorder, in partial remission, most recent episode hypomanic F31.71 [facility] [address] [facility] [id number] [address] [place] [phone] Jan, Bipolar disorder, in partial remission, most recent episode hypomanic F31.71 [facility] [address] [facility] [id number] [address] [place] [phone] Dec, Bipolar disorder, in partial remission, most recent episode hypomanic F31.71 [facility] [address] [facility] [id number] [address] [place] [phone] Dec, Bipolar disorder, in partial remission, most recent episode hypomanic F31.71 ; Attention deficit hyperactivity disorder (ADHD), combined type F90.2 ; Anxiety disorder, unspecified type F41.9 and Other long-term (current) 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 Z79.899 [facility] [address] [facility] [id number] [address] [place] [phone] Dec, Bipolar disorder, in partial remission, most recent episode hypomanic F31.71 [facility] [address] [facility] [id number] [address] [place] [address] Dec, Bipolar disorder, in partial remission, most recent episode hypomanic F31.71 [facility] [address] [id number] [address] [place] [phone] October, Bipolar disorder, in partial remission, most recent episode hypomanic F31.71 [facility] [address] [id number] [address] [place] [phone] October, [facility] [address] [id number] [address] [place] [phone] October, [facility] [address] [id number] [address] [place] [address] Oct, Bipolar disorder, in partial remission, most recent episode hypomanic F31.71 ; Attention deficit hyperactivity disorder (ADHD), combined type F90.2 ; Anxiety disorder, unspecified type F41.9 and Encounter for drug screening Z02.83 [facility] [address] [id number] [address] [place] [address] Oct, Bipolar disorder, in partial remission, most recent episode hypomanic F31.71 [facility] [address] [id number] [address] [place] [phone] Oct, Bipolar disorder, in partial remission, most recent episode hypomanic F31.71 [facility] [address] [id number] [address] [place] [id number] Aug, Bipolar disorder, in partial remission, most recent episode hypomanic F31.71 [facility] [address] [id number] [address] [place] [phone] Aug, Bipolar disorder, in partial remission, most recent episode hypomanic F31.71 [facility] [address] [id number] [address] [place] [address] Aug, Bipolar disorder, in partial remission, most recent episode hypomanic F31.71 [facility] [address] [id number] [address] [place] [address] Jul, Bipolar disorder, in partial remission, most recent episode hypomanic F31.71 ; Attention deficit hyperactivity disorder (ADHD), combined type F90.2 and Anxiety disorder, unspecified type F41.9 [facility] [address] [id number] [address] [place] [phone] Jul, Bipolar disorder, in partial remission, most recent episode hypomanic F31.71 [facility] [address] [id number] [address] [place] [phone] Jun, Bipolar disorder, in partial remission, most recent episode hypomanic F31.71 [facility] [address] [id number] [address] [place] [phone] May, Bipolar disorder, in partial remission, most recent episode hypomanic F31.71 [facility] [address] [facility] [id number] [address] [place] [phone] May, Bipolar disorder, in partial remission, most recent episode hypomanic F31.71 [facility] [address] [facility] [id number] [address] [place] [phone] Apr, [facility] [address] [id number] [address] [place] [phone] Apr, Bipolar disorder, in partial remission, most recent episode hypomanic F31.71 ; Attention deficit hyperactivity disorder (ADHD), combined type F90.2 ; Anxiety disorder, unspecified type F41.9 and Cannabis abuse F12.10 [facility] [address] [id number] [address] [place] [phone] Apr, Attention deficit hyperactiv ity disorder (ADHD), combined type F90.2 [facility] [address] [id number] [address] [place] [phone] Mar, Attention deficit hyperactiv ity disorder (ADHD), combined type F90.2 [facility] [address] [facility] [id number] [address] [place] [phone] Mar, Anxiety disorder, unspecifie d type F41.9 [facility] [address] [facility] [id number] [address] [place] [phone] Jan, Attention deficit hyperactiv ity disorder (ADHD), combined type F90.2 [facility] [address] [facility] [id number] [address] [place] [phone] Jan, Anxiety disorder, unspecifie d type F41.9 [facility] [address] [facility] [id number] [address] [place] [phone] Jan, Other chronic pain G89.29 ; Chronic hepatitis C without hepatic coma B18.2 and Bipolar 1 disorder F31.9 [facility] [address] [facility] [id number] [address] [place] [phone] Dec, Attention deficit hyperactiv ity disorder (ADHD), combined type F90.2 [facility] [address] [facility] [id number] [address] [place] [address] Dec, Bipolar disorder, in partial remission, most recent episode hypomanic F31.71 ; Attention deficit hyperactivity disorder (ADHD), combined type F90.2 and Anxiety disorder, unspecified type F41.9 [facility] [address] [facility] [id number] [address] [place] [address] Dec, Bipolar disorder, in partial remission, most recent episode hypomanic F31.71 ; Attention deficit hyperactivity disorder (ADHD), combined type F90.2 and Anxiety disorder, unspecified type F41.9 [facility] [address] [facility] [id number] [address] [place] [phone] Dec, Bipolar 1 disorder F31.9 and Attention deficit R41.840 [facility] [address] [facility] [id number] [address] [place] [phone] Oct, Other chronic pain G89.29 ; Alopecia L65.9 and Screening, lipid Z13.220 [facility] [address] [facility] [id number] [address] [place] [phone] Oct, [place] [address] [facility] [id number] [address] [place] [phone] Aug, [facility] [address] [facility] [id number] [address] [place] [phone] Aug, Eustachian tube dysfunction, right H69.81 ; Vertigo R42 and Other chronic pain G89.29 [facility] [address] [id number] [address] [place] [phone] Aug, [facility] [address] [id number] [address] [place] [phone] Jun, [facility] [address] [id number] [address] [place] [phone] Jun, Low back pain M54.5 and Othe r chronic pain G89.29 [facility] [address] [id number] [address] [place] [phone] Jun, [facility] [address] [id number] [address] [place] [phone] May, [facility] [address] [id number] [address] [place] [phone] Jan, [facility] [address] [id number] [address] [place] [phone] Dec, [facility] [address] [id number] [address] [place] [phone] Dec, [facility] [address] [id number] [address] [place] [phone] Jun, [facility] [address] [id number] [address] [place] [phone] Apr, Eustachian tube dysfunction, unspecified laterality H69.80 ; Hot flashes N95.1 and Encounter for immunization Z23 [facility] [address] [id number] [address] [place] [phone] Jan, [facility] [address] [id number] [address] [place] [phone] Jan, [facility] [address] [id number] [address] [place] [phone] Jan, [facility] [address] [id number] [address] [place] [phone] Jan, [facility] [address] [id number] [address] [place] [phone] Jan, Encounter to establish care V65.8 ; Bipolar 1 disorder 296.7 ; Abdominal pain 789.00 ; Constipation 564.00 ; Hard of hearing 389.9 and Drug abuse 305.90 [facility] [address] [id number] [address] [place] [phone] Dec, [facility] [address] [id number] [address] [place] [phone] October, [facility] [address] [id number] [address] [place] [phone] October, [facility] [address] [id number] [address] [place] [phone] Oct, [facility] [address] [id number] [address] [place] [phone] Oct, [facility] [address] [id number] [address] [place] [phone] Oct, [facility] [address] [id number] [address] [place] [phone] Aug, [facility] [address] [id number] [address] [place] [phone] Aug, [facility] [address] [id number] [address] [place] [phone] Aug, [facility] [address] [id number] [address] [place] [phone] Aug, [facility] [address] [id number] [address] [place] [phone] Aug, [facility] [address] [id number] [address] [place] [phone] Aug, [facility] [address] [id number] [address] [place] [address], [place] [address] Aug, 2014 [facility] [address] [id number] [address] [place] [address], [place] [address] Aug, 2014 [facility] [address] [id number] [address] [place] [address], [place] [address] Aug, 2014 [facility] [address] [id number] [address] [place] [address], [place] [address] Aug, 2014 [facility] [address] [id number] [address] [place] [address], [place] [address] Aug, 2014 [facility] [address] [id number] [address] [place] [address], [place] [address] Aug, 2014 [facility] [address] [id number] [address] [place] [address], [place] [address] Aug, 2014 [facility] [address] [id number] [address] [place] [address], [place] [address] Aug, 2014 [facility] [address] [id number] [address] [place] [address], [place] [address] Aug, [facility] [address] [id number] [address] [place] [address], [place] [address] Jul, [facility] [address] [id number] [address] [place] [address], [place] [address] Jul, [facility] [address] [id number] [address] [place] [address], [place] [address] Jul, [facility] [address] [id number] [address] [place] [address], [place] [address] Jul, [facility] [address] [id number] [address] [place] [address], [place] [address] Jul, [facility] [address] [id number] [address] [place] [address], [place] [address] Jul, [facility] [address] [id number] [address] [place] [address], [place] [address] Jul, [facility] [address] [id number] [address] [place] [address], [place] [address] Jul, [facility] [address] [id number] [address] [place] [address], [place] [address] Jun, [facility] [address] [id number] [address] [place] [address], [place] [address] Jun, [facility] [address] [id number] [address] [place] [address], [place] [address] Jun, [facility] [address] [id number] [address] [place] [address], [place] [address] Jun, [facility] [address] [id number] [address] [place] [address], [place] [address] Jun, [facility] [address] [id number] [address] [place] [address], [place] [address] Jun, [facility] [address] [id number] [address] [place] [address], [place] [address] Jun, [facility] [address] [id number] [address] [place] [address], [place] [address] Jun, [facility] [address] [id number] [address] [place] [address], [place] [address] Jun, [facility] [address] [id number] [address] [place] [address], [place] [address] Jun, [facility] [address] [id number] [address] [place] [address], [place] [address] Jun, [facility] [address] [id number] [address] [place] [address], [place] [address] May, [facility] [address] [id number] [address] [place] [address], [place] [address] May, [facility] [address] [id number] [address] [place] [address], [place] [address] May, [facility] [address] [id number] [address] [place] [address], [place] [address] May, [facility] [address] [id number] [address] [place] [address], [place] [address] May, [facility] [address] [id number] [address] [place] [address], [place] [address] May, [facility] [address] [id number] [address] [place] [address], [place] [address] May, [facility] [address] [id number] [address] [place] [address], [place] [address] Apr, [facility] [address] [id number] [address] [place] [address], [place] [address] Apr, [facility] [address] [id number] [address] [place] [address], [place] [address] Apr, [facility] [address] [id number] [address] [place] [address], [place] [address] Apr, [facility] [address] [id number] [address] [place] [address], [place] [address] Apr, [facility] [address] [id number] [address] [place] [address], [place] [address] Apr, [facility] [address] [id number] [address] [place] [address], [place] [address] Mar, [facility] [address] [id number] [address] [place] [address], [place] [address] 29 Mar, 2013 [facility] [address] [id number] [address] [place] [address], [place] [address] 10 Mar, 2013 [facility] [address] [id number] [address] [place] [address], [place] [address] 10 Mar, 2013 [facility] [address] [id number] [address] [place] [address], [place] [address] Mar, 2013 [facility] [address] [id number] [address] [place] [address], [place] [address] Mar, [facility] [address] [id number] [address] [place] [address], [place] [address] Jan, [facility] [address] [id number] [address] [place] [address], [place] [address] Jan, [facility] [address] [id number] [address] [place] [address], [place] [address] Jan, [facility] [address] [id number] [address] [place] [address], [place] [address] Jan, [facility] [address] [id number] [address] [place] [address], [place] [address] Dec, [facility] [address] [id number] [address] [place] [address], [place] [address] Dec, [facility] [address] [id number] [address] [place] [address], [place] [address] Dec, [facility] [address] [id number] [address] [place] [address], [place] [address] Dec, [facility] [address] [id number] [address] [place] [address], [place] [address] Dec, [facility] [address] [id number] [address] [place] [address], [place] [address] Dec, [facility] [address] [id number] [address] [place] [address], [place] [address] Dec, [facility] [address] [id number] [address] [place] [address], [place] [address] Dec, [facility] [address] [id number] [address] [place] [address], [place] [address] Dec, [facility] [address] [id number] [address] [place] [address], [place] [address] Dec, [facility] [address] [id number] [address] [place] [address], [place] [address] Dec, [facility] [address] [id number] [address] [place] [address], [place] [address] Dec, [facility] [address] [id number] [address] [place] [address], [place] [address] October, [facility] [address] [id number] [address] [place] [address], [place] [address] October, [facility] [address] [id number] [address] [place] [address], [place] [address] October, [facility] [address] [id number] [address] [place] [address], [place] [address] October, [facility] [address] [id number] [address] [place] [address], [place] [address] October, [facility] [address] [id number] [address] [place] [address], [place] [address] October, [facility] [address] [id number] [address] [place] [address], [place] [address] Oct, [facility] [address] [id number] [address] [place] [address], [place] [address] Oct, [facility] [address] [id number] [address] [place] [address], [place] [address] Oct, [facility] [address] [id number] [address] [place] [address], [place] [address] Oct, [facility] [address] [id number] [address] [place] [address], [place] [address] Oct, [facility] [address] [id number] [address] [place] [address], [place] [address] Oct, [facility] [address] [id number] [address] [place] [address], [place] [address] Oct, [facility] [address] [id number] [address] [place] [address], [place] [address] Oct, [facility] [address] [id number] [address] [place] [address], [place] [address] Oct, [facility] [address] [id number] [facility] [address] 09 Oct, 2013 [facility] [address] [id number] [facility] [place] [address] Oct, [facility] [address] [id number] [address] [place] [address], [place] [address] Oct, [facility] [address] [id number] [address] [place] [address], [place] [address] Aug, [facility] [address] [id number] [address] [place] [address], [place] [address] Aug, [facility] [address] [id number] [address] [place] [address], [place] [address] Aug, [facility] [address] [id number] [address] [place] [address], [place] [address] Aug, [facility] [address] [id number] [address] [place] [address], [place] [address] Aug, [facility] [address] [id number] [address] [place] [address], [place] [address] 05 Aug, 2013 [facility] [address] [id number] [address] [place] [address], [place] [address] Aug, [facility] [address] [id number] [address] [place] [address], [place] [address] Aug, [facility] [address] [id number] [address] [place] [address], [place] [address] Aug, [facility] [address] [id number] [address] [place] [address], [place] [address] Aug, [facility] [address] [id number] [address] [place] [address], [place] [address] Aug, [facility] [address] [id number] [address] [place] [address], [place] [address] Aug, [facility] [address] [id number] [address] [place] [address], [place] [address] Aug, [facility] [address] [id number] [address] [place] [address], [place] [address] 20 Aug, 2013 [facility] [address] [id number] [address] [place] [address], [place] [address] 14 Aug, 2013 [facility] [address] [id number] [address] [place] [address], [place] [address] 14 Aug, 2013 [facility] [address] [id number] [address] [place] [address], [place] [address] 14 Aug, 2013 [facility] [address] [id number] [address] [place] [address], [place] [address] 14 Aug, 2013 [facility] [address] [id number] [address] [place] [address], [place] [address] 07 Aug, 2013 [facility] [address] [id number] [address] [place] [address], [place] [address] 07 Aug, 2013 [facility] [address] [id number] [address] [place] [address], [place] [address] 06 Aug, 2013 [facility] [address] [id number] [address] [place] [address], [place] [address] 06 Aug, 2013 [facility] [address] [id number] [address] [place] [address], [place] [address] 04 Aug, 2013 [facility] [address] [id number] [address] [place] [address], [place] [address] 04 Aug, 2013 [facility] [address] [id number] [address] [place] [address], [place] [address] Aug, [facility] [address] [id number] [address] [place] [address], [place] [address] Jul, [facility] [address] [id number] [address] [place] [address], [place] [address] Jul, [facility] [address] [id number] [address] [place] [address], [place] [address] Jul, [facility] [address] [id number] [address] [place] [address], [place] [address] Jul, [facility] [address] [id number] [address] [place] [address], [place] [address] Jul, [facility] [address] [id number] [address] [place] [address], [place] [address] Jul, [facility] [address] [id number] [address] [place] [address], [place] [address] Jul, [facility] [address] [id number] [address] [place] [address], [place] [address] Jul, [facility] [address] [id number] [address] [place] [address], [place] [address] Jul, [facility] [address] [id number] [address] [place] [address], [place] [address] Jul, [facility] [address] [id number] [address] [place] [address], [place] [address] Jul, [facility] [address] [id number] [address] [place] [address], [place] [address] Jul, [facility] [address] [id number] [address] [place] [address], [place] [address] Jul, [facility] [address] [id number] [address] [place] [address], [place] [address] Jul, [facility] [address] [id number] [address] [place] [address], [place] [address] Jul, [facility] [address] [id number] [address] [place] [address], [place] [address] Jul, [facility] [address] [id number] [address] [place] [address], [place] [address] Jul, [facility] [address] [id number] [address] [place] [address], [place] [address] Jul, [facility] [address] [id number] [address] [place] [address], [place] [address] Jul, [facility] [address] [id number] [address] [place] [address], [place] [address] Jul, [facility] [address] [id number] [address] [place] [address], [place] [address] Jun, [facility] [address] [id number] [address] [place] [address], [place] [address] Jun, [facility] [address] [id number] [address] [place] [address], [place] [address] Jun, [facility] [address] [id number] [address] [place] [address], [place] [address] Jun, [facility] [address] [id number] [address] [place] [address], [place] [address] Jun, [facility] [address] [id number] [address] [place] [address], [place] [address] Jun, [facility] [address] [id number] [address] [place] [address], [place] [address] Jun, [facility] [address] [id number] [address] [place] [address], [place] [address] Jun, [facility] [address] [id number] [address] [place] [address], [place] [address] Jun, [facility] [address] [id number] [address] [place] [address], [place] [address] Jun, [facility] [address] [id number] [address] [place] [address], [place] [address] Jun, [facility] [address] [id number] [address] [place] [address], [place] [address] Jun, [facility] [address] [id number] [address] [place] [address], [place] [address] Jun, [facility] [address] [id number] [address] [place] [address], [place] [address] Jun, [facility] [address] [id number] [address] [place] [address], [place] [address] 20 Jun, 2013 [facility] [address] [id number] [address] [place] [address], [place] [address] 18 Jun, 2013 [facility] [address] [id number] [address] [place] [address], [place] [address] 18 Jun, 2013 [facility] [address] [id number] [address] [place] [address], [place] [address] 17 Jun, 2013 [facility] [address] [id number] [address] [place] [address], [place] [address] 17 Jun, 2013 [facility] [address] [id number] [address] [place] [address], [place] [address] 13 Jun, 2013 [facility] [address] [id number] [address] [place] [address], [place] [address] 12 Jun, 2013 [facility] [address] [id number] [address] [place] [address], [place] [address] 12 Jun, 2013 [facility] [address] [id number] [address] [place] [address], [place] [address] 09 Jun, 2013 [facility] [address] [id number] [address] [place] [address], [place] [address] 05 Jun, 2013 [facility] [address] [id number] [address] [place] [address], [place] [address] 05 Jun, 2013 [facility] [address] [id number] [address] [place] [address], [place] [address] 04 Jun, 2013 [facility] [address] [id number] [address] [place] [address], [place] [address] 04 Jun, 2013 [facility] [address] [id number] [address] [place] [address], [place] [address] 17 May, 2013 [facility] [address] [id number] [address] [place] [address], [place] [address] 17 May, 2013 [facility] [address] [id number] [address] [place] [address], [place] [address] May, [facility] [address] [id number] [address] [place] [address], [place] [address] May, [facility] [address] [id number] [address] [place] [address], [place] [address] May, [facility] [address] [id number] [address] [place] [address], [place] [address] May, [facility] [address] [id number] [address] [place] [address], [place] [address] Apr, [facility] [address] [id number] [address] [place] [address], [place] [address] Apr, [facility] [address] [id number] [address] [place] [address], [place] [address] Apr, [facility] [address] [id number] [address] [place] [address], [place] [address] Apr, [facility] [address] [id number] [address] [place] [address], [place] [address] Apr, [facility] [address] [id number] [address] [place] [address], [place] [address] Apr, [facility] [address] [id number] [address] [place] [address], [place] [address] Apr, [facility] [address] [id number] [address] [place] [address], [place] [address] Apr, [facility] [address] [id number] [address] [place] [address], [place] [address] 26 Mar, 2013 [facility] [address] [id number] [address] [place] [address], [place] [address] 24 Sep2012 [facility] [address] [id number] [address] [place] [address], [place] [address] 17 Mar, 2013 [facility] [address] [id number] [address] [place] [address], [place] [address] 17 Mar, 2013 [facility] [address] [id number] [address] [place] [address] [place] [address] 11 Mar, 2013 [facility] [address] [id number] [address] [place] [address], [place] [address] 10 Mar, 2013 [facility] [address] [id number] [address] [place] [address], [place] [address] 05 Mar, 2013 [facility] [address] [id number] [address] [place] [address], [place] [address] 04 Mar, 2013 [facility] [address] [id number] [address] [place] [address], [place] [address] 20 Jan, 2013 [facility] [address] [id number] [address] [place] [address], [place] [address] Jan, [facility] [address] [id number] [address] [place] [address], [place] [address] 14 Jan, 2013 [facility] [address] [id number] [address] [place] [address], [place] [address] Jan, [facility] [address] [id number] [address] [place] [address], [place] [address] Jan, [facility] [address] [id number] [address] [place] [address], [place] [address] Jan, [facility] [address] [id number] [address] [place] [address], [place] [address] Dec, [facility] [address] [id number] [address] [place] [address], [place] [address] Dec, [facility] [address] [id number] [address] [place] [address], [place] [address] Dec, [facility] [address] [id number] [address] [place] [address], [place] [address] Dec, [facility] [address] [id number] [address] [place] [address], [place] [address] Dec, [facility] [address] [id number] [address] [place] [address], [place] [address] 17 Dec, 2012 [facility] [address] [id number] [address] [place] [address], [place] [address] 16 Dec, 2012 [facility] [address] [id number] [address] [place] [address], [place] [address] 16 Dec, 2012 [facility] [address] [id number] [address] [place] [address], [place] [address] 15 Dec, 2012 [facility] [address] [id number] [address] [place] [address], [place] [address] 10 Dec, 2012 [facility] [address] [id number] [address] [place] [address], [place] [address] 28 Dec, 2012 [facility] [address] [id number] [address] [place] [address], [place] [address] Dec, [facility] [address] [id number] [address] [place] [address], [place] [address] Dec, [facility] [address] [id number] [address] [place] [address], [place] [address] Dec, [facility] [address] [id number] [address] [place] [address], [place] [address] Dec, [facility] [address] [id number] [address] [place] [address], [place] [address] Dec, [facility] [address] [id number] [address] [place] [address], [place] [address] October, [facility] [address] [id number] [address] [place] [address], [place] [address] October, [facility] [address] [id number] [address] [place] [address], [place] [address] October, [facility] [address] [id number] [address] [place] [address], [place] [address] October, [facility] [address] [id number] [address] [place] [address], [place] [address] October, [facility] [address] [id number] [address] [place] [address], [place] [address] October, [facility] [address] [id number] [address] [place] [address], [place] [address] October, [facility] [address] [id number] [address] [place] [address], [place] [address] Oct, [facility] [address] [id number] [address] [place] [address], [place] [address] Oct, [facility] [address] [id number] [address] [place] [address], [place] [address] Oct, [facility] [address] [id number] [address] [place] [address], [place] [address] Oct, [facility] [address] [id number] [address] [place] [address], [place] [address] Oct, [facility] [address] [id number] [address] [place] [address], [place] [address] Oct, [facility] [address] [id number] [address] [place] [address], [place] [address] Oct, [facility] [address] [id number] [address] [place] [address], [place] [address] 15 Oct, 2012 [facility] [address] [id number] [address] [place] [address], [place] [address] Oct, [facility] [address] [id number] [address] [place] [address], [place] [address] Oct, [facility] [address] [id number] [address] [place] [address], [place] [address] Oct, [facility] [address] [id number] [address] [place] [address], [place] [address] Oct, [facility] [address] [id number] [address] [place] [address], [place] [address] Aug, [facility] [address] [id number] [address] [place] [address], [place] [address] Aug, [facility] [address] [id number] [address] [place] [address], [place] [address] 12 Aug, 2012 [facility] [address] [id number] [address] [place] [address], [place] [address] 06 Aug, 2012 [facility] [address] [id number] [address] [place] [address], [place] [address] 05 Aug, 2012 [facility] [address] [id number] [address] [place] [address], [place] [address] 05 Aug, 2012 [facility] [address] [id number] [address] [place] [address], [place] [address] 20 Aug, 2012 [facility] [address] [id number] [address] [place] [address], [place] [address] 14 Aug, 2012 [facility] [address] [id number] [address] [place] [address], [place] [address] 12 Aug, 2012 [facility] [address] [id number] [address] [place] [address], [place] [address] Aug, [facility] [address] [id number] [address] [place] [address], [place] [address] Jul, [facility] [address] [id number] [address] [place] [address], [place] [address] Jul, [facility] [address] [id number] [address] [place] [address], [place] [address] Jul, [facility] [address] [id number] [address] [place] [address], [place] [address] Jun, [facility] [address] [id number] [address] [place] [address], [place] [address] Jun, [facility] [address] [id number] [address] [place] [address], [place] [address] Jun, [facility] [address] [id number] [address] [place] [address], [place] [address] Jun, [facility] [address] [id number] [address] [place] [address], [place] [address] Jun, [facility] [address] [id number] [address] [place] [address], [place] [address] 14 Jun, 2012 [facility] [address] [id number] [address] [place] [address], [place] [address] 14 Jun, 2012 [facility] [address] [id number] [address] [place] [address], [place] [address] 13 Jun, 2012 [facility] [address] [id number] [address] [place] [address], [place] [address] 13 Jun, 2012 [facility] [address] [id number] [address] [place] [address], [place] [address] 11 Jun, 2012 [facility] [address] [id number] [address] [place] [address], [place] [address] 11 Jun, 2012 [facility] [address] [id number] [address] [place] [address], [place] [address] 11 Jun, 2012 [facility] [address] [id number] [address] [place] [address], [place] [address] 11 Jun, 2012 [facility] [address] [id number] [address] [place] [address], [place] [address] 07 Jun, 2012 [facility] [address] [id number] [address] [place] [address], [place] [address] 07 Jun, 2012 [facility] [address] [id number] [address] [place] [address], [place] [address] 06 Jun, 2012 [facility] [address] [id number] [address] [place] [address], [place] [address] 06 Jun, 2012 [facility] [address] [id number] [address] [place] [address], [place] [address] Jun, [facility] [address] [id number] [address] [place] [address], [place] [address] 06 Jun, 2012 [facility] [address] [id number] [address] [place] [address], [place] [address] 05 Jun, 2012 [facility] [address] [id number] [address] [place] [address], [place] [address] Jun, [facility] [address] [id number] [address] [place] [address], [place] [address] Jun, [facility] [address] [id number] [address] [place] [address], [place] [address] Jun, [facility] [address] [id number] [address] [place] [address], [place] [address] May, [facility] [address] [id number] [address] [place] [address], [place] [address] May, [facility] [address] [id number] [address] [place] [address], [place] [address] May, [facility] [address] [id number] [address] [place] [address], [place] [address] May, [facility] [address] [id number] [address] [place] [address], [place] [address] May, [facility] [address] [id number] [address] [place] [address], [place] [address] May, [facility] [address] [id number] [address] [place] [address], [place] [address] May, [facility] [address] [id number] [address] [place] [address], [place] [address] May, [facility] [address] [id number] [address] [place] [address], [place] [address] Apr, [facility] [address] [id number] [address] [place] [address] Apr, [facility] [address] [id number] [address] [place] [address], [place] [address] Apr, [facility] [address] [id number] [address] [place] [address], [place] [address] Apr, [facility] [address] [id number] [address] [place] [address] Apr, [facility] [address] [id number] [address] [place] [address], [place] [address] Apr, [facility] [address] [id number] [address] [place] [address], [place] [address] Apr, [facility] [address] [id number] [address] [place] [address], [place] [address] Apr, [facility] [address] [id number] [address] [place] [address], [place] [address] Apr, [facility] [address] [id number] [address] [place] [address], [place] [address] Apr, [facility] [address] [id number] [address] [place] [address], [place] [address] Apr, [facility] [address] [id number] [address] [place] [address], [place] [address] Apr, [facility] [address] [id number] [address] [place] [address], [place] [address] Mar, [facility] [address] [id number] [address] [place] [address], [place] [address] 18 Mar, 2012 [facility] [address] [id number] [address] [place] [address] Mar, [facility] [address] [id number] [address] [place] [address] Mar, [facility] [address] [id number] [address] [place] [id number] Mar, [facility] [address] [id number] [address] [place] [id number] Mar, [facility] [address] [id number] [address] [place] [address], [place] [address] Mar, [facility] [address] [address] [id number] [address] [place] [address], [place] [address] Jan, [facility] [address] [id number] [address] [place] [phone] Jan, [facility] [address] [id number] [facility] [place] [id number] Jan, [facility] [address] [id number] [facility] [place] [id number] Jan, [facility] [address] [id number] [address] [place] [address], [place] [address] Jan, [facility] [address] [id number] [address] [place] [address], [place] [address] Jan, [facility] [address] [id number] [address] [place] [address], [place] [address] Jan, [facility] [address] [id number] [address] [place] [address], [place] [address] Jan, [facility] [address] [id number] [address] [place] [address], [place] [address] Jan, [facility] [address] [id number] [address] [place] [address], [place] [address] Jan, [facility] [address] [id number] [address] [place] [address], [place] [address] Jan, [facility] [address] [id number] [address] [place] [address], [place] [address] Dec, [facility] [address] [id number] [address] [place] [address], [place] [address] Dec, [facility] [address] [id number] [address] [place] [address], [place] [address] Dec, [facility] [address] [id number] [address] [place] [address], [place] [address] Dec, [facility] [address] [id number] [address] [place] [address], [place] [address] Dec, [facility] [address] [id number] [address] [place] [address], [place] [address] Dec, [facility] [address] [id number] [address] [place] [address] [place] [address] 18 Jan, 2012 [facility] [address] [id number] [address] [place] [address], [place] [address] 17 Jan, 2012 [facility] [address] [id number] [address] [place] [address], [place] [address] 16 Jan, 2012 [facility] [address] [id number] [address] [place] [address], [place] [address] 13 Jan, 2012 [facility] [address] [id number] [address] [place] [address], [place] [address] 13 Jan, 2012 [facility] [address] [id number] [address] [place] [address], [place] [address] 02 Jan, 2012 [facility] [address] [id number] [address] [place] [address], [place] [address] Dec, [facility] [address] [id number] [address] [place] [address], [place] [address] Dec, [facility] [address] [id number] [address] [place] [address], [place] [address] Dec, [facility] [address] [id number] [address] [place] [address], [place] [address] Dec, [facility] [address] [id number] [address] [place] [address], [place] [address] 15 Dec, 2011 [facility] [address] [id number] [address] [place] [address], [place] [address] Dec, [facility] [address] [id number] [address] [place] [address], [place] [address] Dec, [facility] [address] [id number] [address] [place] [address], [place] [address] October, [facility] [address] [id number] [address] [place] [address], [place] [address] October, [facility] [address] [id number] [address] [place] [address], [place] [address] October, [facility] [address] [id number] [address] [place] [address], [place] [address] October, [facility] [address] [id number] [address] [place] [address], [place] [address] October, [facility] [address] [id number] [address] [place] [address], [place] [address] October, [facility] [address] [id number] [address] [place] [address], [place] [address] Oct, [facility] [address] [id number] [address] [place] [address], [place] [address] 24 Oct, 2011 [facility] [address] [id number] [address] [place] [address], [place] [address] Oct, [facility] [address] [id number] [address] [place] [address], [place] [address] Oct, [facility] [address] [id number] [address] [place] [address], [place] [address] Oct, [facility] [address] [id number] [address] [place] [address], [place] [address] Oct, [facility] [address] [id number] [address] [place] [address], [place] [address] Oct, [facility] [address] [id number] [address] [place] [address], [place] [address] Aug, [facility] [address] [id number] [address] [place] [address], [place] [address] 29 Sep, 2011 [facility] [address] [id number] [address] [place] [address], [place] [address] 19 Sep, 2011 [facility] [address] [id number] [address] [place] [address], [place] [address] 13 Sep, 2011 [facility] [address] [id number] [address] [place] [address], [place] [address] 05 Sep, 2011 [facility] [address] [id number] [address] [place] [address], [place] [address] Aug, [facility] [address] [id number] [address] [place] [address], [place] [address] Aug, [facility] [address] [id number] [address] [place] [address], [place] [address] Aug, [facility] [address] [id number] [address] [place] [address], [place] [address] Aug, [facility] [address] [id number] [address] [place] [address], [place] [address] Jul, [facility] [address] [id number] [address] [place] [address], [place] [address] Jul, [facility] [address] [id number] [address] [place] [address], [place] [address] Jul, [facility] [address] [id number] [address] [place] [address], [place] [address] Jul, [facility] [address] [id number] [address] [place] [address], [place] [address] Jun, [facility] [address] [id number] [address] [place] [address], [place] [address] Jun, [facility] [address] [id number] [address] [place] [address], [place] [address] May, [facility] [address] [id number] [address] [place] [address], [place] [address] May, [facility] [address] [id number] [address] [place] [address], [place] [address] May, [facility] [address] [id number] [address] [place] [address], [place] [address] May, [facility] [address] [id number] [address] [place] [address], [place] [address] 07 May, 2011 [facility] [address] [id number] [address] [place] [address], [place] [address] Apr, [facility] [address] [id number] [address] [place] [address] Apr, [facility] [address] [id number] [address] [place] [address] Apr, [facility] [address] [id number] [address] [place] [address] Jan, [facility] [address] [id number] [address] [place] [address] Dec, [facility] [address] [id number] [address] [place] [address] October, [facility] [address] [id number] [address] [place] [address] Jun, [facility] [address] [id number] [address] [place] [address] Apr, [facility] [address] [id number] [address] [place] [address] Apr, [facility] [address] [id number] [address] [place] [address] Apr, [facility] [address] [id number] [address] [place] [address] Jun, IMMUNIZATIONS No Known Immunizations SOCIAL HISTORY Never Assessed REASON FOR VISIT [facility] [place] VITAL SIGNS MEDICATIONS Unknown Medications RESULTS No Results PROCEDURES No Known procedures INSTRUCTIONS MEDICATIONS ADMINISTERED No Known Medications MEDICAL (GENERAL) HISTORY Type Description Date Medical History Psychiatric disorder Medical History Hard of hearing Surgical History Neofibrous tumor Surgical History back injection Hospitalization History Intestinal blockage Hospitalization History past psychiatric hospitalizations x2
--- OUTSIDE RECORDS SUMMARY | 2020-01-25 12:55 | XMS REPORT ---
Author Author Ana Mayer Doctor Organization [facility] Address Unknown Phone Unavailable Care Team Providers Care Senior Clinical Data Analyst Name Role Phone Migration, Doctor Unavailable Unavailable PROBLEMS Type Condition ICD9-CM Code FIL49-IP Code Onset Dates Condition S tatus SNOMED Code Problem Attention deficit R41.840 Active 76 952973 Problem Chronic hepatitis C without hepatic coma B18.2 Active 674310279 Problem Cannabis abuse F12.10 Active 79586 009 Problem Bipolar disorder, in partial remission, most rec ent episode hypomanic F31.71 Active 355702451 Problem Attention deficit hyperactivity disorder (ADHD), combi luciano type F90.2 Active 43671456 Problem Bipolar 1 disorder F31.9 Active 3 58461650 Problem H/O laminectomy Z98.89 Active 1616 49032 Problem Other chronic pain G89.29 Active 8 5707641 Problem Anxiety disorder, unspecified type F41.9 Active 997808282 ALLERGIES No Information ENCOUNTERS Encounter Location Date Diagnosis [facility], [place] [address] [facility] [id number] [address] [place] [phone] Oct, [facility], [place] [address] [facility] [id number] [address] [place] [address] Aug, Bipolar disorder, in partial remission, most recent episode hypomanic F31.71 ; Attention deficit hyperactivity disorder (ADHD), combined type F90.2 and Anxiety disorder, unspecified type F41.9 [facility], [place] [address] [facility] [id number] [address] [place] [address] Aug, [facility], [place] [address] [facility] [id number] [address] [place] [address] Aug, Bipolar disorder, in partial remission, most recent episode hypomanic F31.71 [facility], [place] [address] [facility] [id number] [address] [place] [address] Aug, [facility], [place] [address] [id number] [address] [place] [address] Aug, Bipolar disorder, in partial remission, most recent episode hypomanic F31.71 [facility], [place] [address] [id number] [address] [place] [address] Aug, Bipolar disorder, in partial remission, most recent episode hypomanic F31.71 ; Attention deficit hyperactivity disorder (ADHD), combined type F90.2 and Anxiety disorder, unspecified type F41.9 [facility], [place] [address] [id number] [address] [place] [address] Aug, Low back pain M54.5 and Pain in left wrist M25.532 [facility], [place] [address] [id number] [address] [place] [address] Aug, [facility], [place] [address] [id number] [address] [place] [address] Jun, [facility], [place] [address] [facility] [id number] [address] [place] [address] Apr, Bipolar disorder, in partial remission, most recent episode hypomanic F31.71 [facility], [place] [address] [id number] [address] [place] [address] Apr, [facility], [place] [address] [id number] [address] [place] [address] Apr, Bipolar disorder, in partial remission, most recent episode hypomanic F31.71 ; Attention deficit hyperactivity disorder (ADHD), combined type F90.2 ; Anxiety disorder, unspecified type F41.9 and Other custodial (current) 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 Z79.899 [facility], [place] [address] [id number] [address] [place] [address] Apr, Bipolar disorder, in partial remission, most recent episode hypomanic F31.71 [facility], [place] [address] [id number] [address] [place] [address] Apr, Bipolar disorder, in partial remission, most recent episode hypomanic F31.71 [facility], [place] [address] [facility] [id number] [address] [place] [address] Mar, [facility], [place] [address] [id number] [address] [place] [phone] Mar, Bipolar disorder, in partial remission, most recent episode hypomanic F31.71 ; Encounter for immunization Z23 and Low back pain M54.5 [facility], [place] [address] [id number] [address] [place] [address] Mar, Bipolar disorder, in partial remission, most recent episode hypomanic F31.71 [facility], [place] [address] [id number] [address] [place] [address] Mar, Bipolar disorder, in partial remission, most recent episode hypomanic F31.71 [facility], [place] [address] [facility] [id number] [address] [place] [address] Jan, Bipolar disorder, in partial remission, most recent episode hypomanic F31.71 [facility], [place] [address] [facility] [id number] [address] [place] [address] Jan, Bipolar disorder, in partial remission, most recent episode hypomanic F31.71 [facility], [place] [address] [facility] [id number] [address] [place] [address] Dec, Bipolar disorder, in partial remission, most recent episode hypomanic F31.71 [facility], [place] [address] [facility] [id number] [address] [place] [address] Dec, Bipolar disorder, in partial remission, most recent episode hypomanic F31.71 ; Attention deficit hyperactivity disorder (ADHD), combined type F90.2 ; Anxiety disorder, unspecified type F41.9 and Other custodial (current) 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 Z79.899 [facility], [place] [address] [facility] [id number] [address] [place] [address] Dec, Bipolar disorder, in partial remission, most recent episode hypomanic F31.71 [facility], [place] [address] [facility] [id number] [address] [place] [address] Dec, Bipolar disorder, in partial remission, most recent episode hypomanic F31.71 [facility], [place] [address] [id number] [address] [place] [address] October, Bipolar disorder, in partial remission, most recent episode hypomanic F31.71 [facility], [place] [address] [id number] [address] [place] [address] October, [facility], [place] [address] [id number] [address] [place] [address] October, [facility], [place] [address] [id number] [address] [place] [address] Oct, Bipolar disorder, in partial remission, most recent episode hypomanic F31.71 ; Attention deficit hyperactivity disorder (ADHD), combined type F90.2 ; Anxiety disorder, unspecified type F41.9 and Encounter for drug screening Z02.83 [facility], [place] [address] [id number] [address] [place] [address] Oct, Bipolar disorder, in partial remission, most recent episode hypomanic F31.71 [facility], [place] [address] [id number] [address] [place] [address] Oct, Bipolar disorder, in partial remission, most recent episode hypomanic F31.71 [facility], [place] [address] [id number] [address] [place] [address] Aug, Bipolar disorder, in partial remission, most recent episode hypomanic F31.71 [facility], [place] [address] [id number] [address] [place] [address] Aug, Bipolar disorder, in partial remission, most recent episode hypomanic F31.71 [facility], [place] [address] [id number] [address] [place] [address] Aug, Bipolar disorder, in partial remission, most recent episode hypomanic F31.71 [facility], [place] [address] [id number] [address] [place] [address] Jul, Bipolar disorder, in partial remission, most recent episode hypomanic F31.71 ; Attention deficit hyperactivity disorder (ADHD), combined type F90.2 and Anxiety disorder, unspecified type F41.9 [facility], [place] [address] [id number] [address] [place] [address] Jul, Bipolar disorder, in partial remission, most recent episode hypomanic F31.71 [facility], [place] [address] [id number] [address] [place] [address] Jun, Bipolar disorder, in partial remission, most recent episode hypomanic F31.71 [facility], [place] [address] [id number] [address] [place] [address] May, Bipolar disorder, in partial remission, most recent episode hypomanic F31.71 [facility], [place] [address] [facility] [id number] [address] [place] [address] May, Bipolar disorder, in partial remission, most recent episode hypomanic F31.71 [facility], [place] [address] [facility] [id number] [address] [place] [address] Apr, [facility], [place] [address] [id number] [address] [place] [address] Apr, Bipolar disorder, in partial remission, most recent episode hypomanic F31.71 ; Attention deficit hyperactivity disorder (ADHD), combined type F90.2 ; Anxiety disorder, unspecified type F41.9 and Cannabis abuse F12.10 [facility], [place] [address] [id number] [address] [place] [address] Apr, Attention deficit hyperactiv ity disorder (ADHD), combined type F90.2 [facility], [place] [address] [id number] [address] [place] [address] Mar, Attention deficit hyperactiv ity disorder (ADHD), combined type F90.2 [facility], [place] [address] [facility] [id number] [address] [place] [address] Mar, Anxiety disorder, unspecifie d type F41.9 [facility], [place] [address] [facility] [id number] [address] [place] [address] Jan, Attention deficit hyperactiv ity disorder (ADHD), combined type F90.2 [facility], [place] [address] [facility] [id number] [address] [place] [address] Jan, Anxiety disorder, unspecifie d type F41.9 [facility], [place] [address] [facility] [id number] [address] [place] [address] Jan, Other chronic pain G89.29 ; Chronic hepatitis C without hepatic coma B18.2 and Bipolar 1 disorder F31.9 [facility], [place] [address] [facility] [id number] [address] [place] [address] Dec, Attention deficit hyperactiv ity disorder (ADHD), combined type F90.2 [facility], [place] [address] [facility] [id number] [address] [place] [address] Dec, Bipolar disorder, in partial remission, most recent episode hypomanic F31.71 ; Attention deficit hyperactivity disorder (ADHD), combined type F90.2 and Anxiety disorder, unspecified type F41.9 [facility], [place] [address] [facility] [id number] [address] [place] [address] Dec, Bipolar disorder, in partial remission, most recent episode hypomanic F31.71 ; Attention deficit hyperactivity disorder (ADHD), combined type F90.2 and Anxiety disorder, unspecified type F41.9 [facility], [place] [address] [facility] [id number] [address] [place] [address] Dec, Bipolar 1 disorder F31.9 and Attention deficit R41.840 [facility], [place] [address] [facility] [id number] [address] [place] [address] Oct, Other chronic pain G89.29 ; Alopecia L65.9 and Screening, lipid Z13.220 [facility], [place] [address] [facility] [id number] [address] [place] [address] Oct, [place] [address] [facility] [id number] [address] [place] [address] Aug, [facility], [place] [address] [facility] [id number] [address] [place] [address] Aug, Eustachian tube dysfunction, right H69.81 ; Vertigo R42 and Other chronic pain G89.29 [facility], [place] [address] [id number] [address] [place] [address] Aug, [facility], [place] [address] [id number] [address] [place] [address] Jun, [facility], [place] [address] [id number] [address] [place] [address] Jun, Low back pain M54.5 and Othe r chronic pain G89.29 [facility], [place] [address] [id number] [address] [place] [address] Jun, [facility], [place] [address] [id number] [address] [place] [address] May, [facility], [place] [address] [id number] [address] [place] [address] Jan, [facility], [place] [address] [id number] [address] [place] [address] Dec, [facility], [place] [address] [id number] [address] [place] [address] Dec, [facility], [place] [address] [id number] [address] [place] [address] Jun, [facility], [place] [address] [id number] [address] [place] [address] Apr, Eustachian tube dysfunction, unspecified laterality H69.80 ; Hot flashes N95.1 and Encounter for immunization Z23 [facility], [place] [address] [id number] [address] [place] [address] Jan, [facility], [place] [address] [id number] [address] [place] [address] Jan, [facility], [place] [address] [id number] [address] [place] [address] Jan, [facility], [place] [address] [id number] [address] [place] [address] Jan, [facility] [address] [id number] [address] [place] [address] Jan, Encounter to establish care V65.8 ; Bipolar 1 disorder 296.7 ; Abdominal pain 789.00 ; Constipation 564.00 ; Hard of hearing 389.9 and Drug abuse 305.90 [facility], [place] [address] [id number] [address] [place] [address] Dec, [facility] [address] [id number] [address] [place] [address] October, [facility] [address] [id number] [address] [place] [address] October, [facility] [address] [id number] [address] [place] [address] Oct, [facility] [address] [id number] [address] [place] [address] Oct, [facility] [address] [id number] [address] [place] [address] Oct, [facility] [address] [id number] [address] [place] [address] Aug, [facility] [address] [id number] [address] [place] [address] Aug, [facility] [address] [id number] [address] [place] [address] Aug, [facility] [address] [id number] [address] [place] [address] Aug, [facility] [address] [id number] [address] [place] [address] Aug, [facility] [address] [id number] [address] [place] [address] Aug, [facility] [address] [id number] [address] [place] [address], [place] [address] Aug, 2014 [facility] [address] [id number] [address] [place] [address], [place] [address] Aug, 2014 [facility] [address] [id number] [address] [place] [address], [place] [address] Aug, 2014 [facility] [address] [id number] [address] [place] [address], [place] [address] Aug, 2014 [facility] [address] [id number] [address] [place] [address], [place] [address] Aug, 2014 [facility] [address] [id number] [address] [place] [address], [place] [address] Aug, 2014 [facility] [address] [id number] [address] [place] [address], [place] [address] Aug, 2014 [facility] [address] [id number] [address] [place] [address], [place] [address] Aug, 2014 [facility] [address] [id number] [address] [place] [address], [place] [address] Aug, [facility] [address] [id number] [address] [place] [address], [place] [address] Jul, [facility] [address] [id number] [address] [place] [address], [place] [address] Jul, [facility] [address] [id number] [address] [place] [address], [place] [address] Jul, [facility] [address] [id number] [address] [place] [address], [place] [address] Jul, [facility] [address] [id number] [address] [place] [address], [place] [address] Jul, [facility] [address] [id number] [address] [place] [address], [place] [address] Jul, [facility] [address] [id number] [address] [place] [address], [place] [address] Jul, [facility] [address] [id number] [address] [place] [address], [place] [address] Jul, [facility] [address] [id number] [address] [place] [address], [place] [address] Jun, [facility] [address] [id number] [address] [place] [address], [place] [address] Jun, [facility] [address] [id number] [address] [place] [address], [place] [address] Jun, [facility] [address] [id number] [address] [place] [address], [place] [address] Jun, [facility] [address] [id number] [address] [place] [address], [place] [address] Jun, [facility] [address] [id number] [address] [place] [address], [place] [address] Jun, [facility] [address] [id number] [address] [place] [address], [place] [address] Jun, [facility] [address] [id number] [address] [place] [address], [place] [address] Jun, [facility] [address] [id number] [address] [place] [address], [place] [address] Jun, [facility] [address] [id number] [address] [place] [address], [place] [address] Jun, [facility] [address] [id number] [address] [place] [address], [place] [address] Jun, [facility] [address] [id number] [address] [place] [address], [place] [address] May, [facility] [address] [id number] [address] [place] [address], [place] [address] May, [facility] [address] [id number] [address] [place] [address], [place] [address] May, [facility] [address] [id number] [address] [place] [address], [place] [address] May, [facility] [address] [id number] [address] [place] [address], [place] [address] May, [facility] [address] [id number] [address] [place] [address], [place] [address] May, [facility] [address] [id number] [address] [place] [address], [place] [address] May, [facility] [address] [id number] [address] [place] [address], [place] [address] Apr, [facility] [address] [id number] [address] [place] [address], [place] [address] Apr, [facility] [address] [id number] [address] [place] [address], [place] [address] Apr, [facility] [address] [id number] [address] [place] [address], [place] [address] Apr, [facility] [address] [id number] [address] [place] [address], [place] [address] Apr, [facility] [address] [id number] [address] [place] [address], [place] [address] Apr, [facility] [address] [id number] [address] [place] [address], [place] [address] Mar, [facility] [address] [id number] [address] [place] [address], [place] [address] 29 Mar, 2013 [facility] [address] [id number] [address] [place] [address], [place] [address] 10 Mar, 2013 [facility] [address] [id number] [address] [place] [address], [place] [address] 10 Mar, 2013 [facility] [address] [id number] [address] [place] [address], [place] [address] Mar, 2013 [facility] [address] [id number] [address] [place] [address], [place] [address] Mar, [facility] [address] [id number] [address] [place] [address], [place] [id number] Jan, [facility] [address] [id number] [address] [place] [address], [place] [address] Jan, [facility] [address] [id number] [address] [place] [address], [place] [address] Jan, [facility] [address] [id number] [address] [place] [address], [place] [address] Jan, [facility] [address] [id number] [address] [place] [address], [place] [address] Dec, [facility] [address] [id number] [address] [place] [address], [place] [address] Dec, [facility] [address] [id number] [address] [place] [address], [place] [address] Dec, [facility] [address] [id number] [address] [place] [address], [place] [id number] Dec, [facility] [address] [id number] [address] [place] [address], [place] [address] Dec, [facility] [address] [id number] [address] [place] [address], [place] [address] Dec, [facility] [address] [id number] [address] [place] [address], [place] [address] Dec, [facility] [address] [id number] [address] [place] [address], [place] [id number] Dec, [facility] [address] [id number] [address] [place] [address], [place] [address] Dec, [facility] [address] [id number] [address] [place] [address], [place] [address] Dec, [facility] [address] [id number] [address] [place] [address], [place] [address] Dec, [facility] [address] [id number] [address] [place] [address], [place] [address] Dec, [facility] [address] [id number] [address] [place] [address], [place] [address] October, [facility] [address] [id number] [address] [place] [address], [place] [id number] October, [facility] [address] [id number] [address] [place] [address], [place] [address] October, [facility] [address] [id number] [address] [place] [address], [place] [address] October, [facility] [address] [address] [id number] [address] [place] [address], [place] [address] October, [facility] [address] [id number] [address] [place] [address], [place] [address] October, [facility] [address] [id number] [address] [place] [address], [place] [address] Oct, [facility] [address] [id number] [address] [place] [address], [place] [address] Oct, [facility] [address] [id number] [address] [place] [address], [place] [address] Oct, [facility] [address] [id number] [address] [place] [address], [place] [address] Oct, [facility] [address] [id number] [address] [place] [address], [place] [address] Oct, [facility] [address] [id number] [address] [place] [address], [place] [address] Oct, [facility] [address] [id number] [address] [place] [address], [place] [address] Oct, [facility] [address] [id number] [address] [place] [address], [place] [address] Oct, [facility] [address] [id number] [address] [place] [address], [place] [address] Oct, [facility] [address] [id number] [facility] [place] [address] 09 Oct, 2013 [facility] [address] [id number] [facility] [place] [address] Oct, [facility] [address] [id number] [address] [place] [address], [place] [address] Oct, [facility] [address] [id number] [address] [place] [address], [place] [address] Aug, [facility] [address] [id number] [address] [place] [address], [place] [address] Aug, [facility] [address] [id number] [address] [place] [address], [place] [address] Aug, [facility] [address] [id number] [address] [place] [address], [place] [address] Aug, [facility] [address] [id number] [address] [place] [address], [place] [address] Aug, [facility] [address] [id number] [address] [place] [address], [place] [address] 05 Aug, 2013 [facility] [address] [id number] [address] [place] [address], [place] [address] Aug, [facility] [address] [id number] [address] [place] [address], [place] [address] Aug, [facility] [address] [id number] [address] [place] [address], [place] [address] Aug, [facility] [address] [id number] [address] [place] [address], [place] [address] Aug, [facility] [address] [id number] [address] [place] [address], [place] [address] Aug, [facility] [address] [id number] [address] [place] [address], [place] [address] Aug, [facility] [address] [id number] [address] [place] [address], [place] [address] Aug, [facility] [address] [id number] [address] [place] [address], [place] [address] 20 Aug, 2013 [facility] [address] [id number] [address] [place] [address], [place] [address] 14 Aug, 2013 [facility] [address] [id number] [address] [place] [address], [place] [address] 14 Aug, 2013 [facility] [address] [id number] [address] [place] [address], [place] [address] 14 Aug, 2013 [facility] [address] [id number] [address] [place] [address], [place] [address] 14 Aug, 2013 [facility] [address] [id number] [address] [place] [address], [place] [address] 07 Aug, 2013 [facility] [address] [id number] [address] [place] [address], [place] [address] 07 Aug, 2013 [facility] [address] [id number] [address] [place] [address], [place] [address] 06 Aug, 2013 [facility] [address] [id number] [address] [place] [address], [place] [address] 06 Aug, 2013 [facility] [address] [id number] [address] [place] [address], [place] [address] 04 Aug, 2013 [facility] [address] [id number] [address] [place] [address], [place] [address] 04 Aug, 2013 [facility] [address] [id number] [address] [place] [address], [place] [address] Aug, [facility] [address] [id number] [address] [place] [address], [place] [address] Jul, [facility] [address] [id number] [address] [place] [address], [place] [address] Jul, [facility] [address] [id number] [address] [place] [address], [place] [address] Jul, [facility] [address] [id number] [address] [place] [address], [place] [address] Jul, [facility] [address] [id number] [address] [place] [address], [place] [address] Jul, [facility] [address] [id number] [address] [place] [address], [place] [address] Jul, [facility] [address] [id number] [address] [place] [address], [place] [address] Jul, [facility] [address] [id number] [address] [place] [address], [place] [address] Jul, [facility] [address] [id number] [address] [place] [address], [place] [address] Jul, [facility] [address] [id number] [address] [place] [address], [place] [address] Jul, [facility] [address] [id number] [address] [place] [address], [place] [address] Jul, [facility] [address] [id number] [address] [place] [address], [place] [address] Jul, [facility] [address] [id number] [address] [place] [address], [place] [address] Jul, [facility] [address] [id number] [address] [place] [address], [place] [address] Jul, [facility] [address] [id number] [address] [place] [address], [place] [address] Jul, [facility] [address] [id number] [address] [place] [address], [place] [address] Jul, [facility] [address] [id number] [address] [place] [address], [place] [address] Jul, [facility] [address] [id number] [address] [place] [address], [place] [address] Jul, [facility] [address] [id number] [address] [place] [address], [place] [address] Jul, [facility] [address] [id number] [address] [place] [address], [place] [address] Jul, [facility] [address] [id number] [address] [place] [address], [place] [address] Jun, [facility] [address] [id number] [address] [place] [address], [place] [address] Jun, [facility] [address] [id number] [address] [place] [address], [place] [address] Jun, [facility] [address] [id number] [address] [place] [address], [place] [address] Jun, [facility] [address] [id number] [address] [place] [address], [place] [address] Jun, [facility] [address] [id number] [address] [place] [address], [place] [address] Jun, [facility] [address] [id number] [address] [place] [address], [place] [address] Jun, [facility] [address] [id number] [address] [place] [address], [place] [address] Jun, [facility] [address] [id number] [address] [place] [address], [place] [address] Jun, [facility] [address] [id number] [address] [place] [address], [place] [address] Jun, [facility] [address] [id number] [address] [place] [address], [place] [address] Jun, [facility] [address] [id number] [address] [place] [address], [place] [address] Jun, [facility] [address] [id number] [address] [place] [address], [place] [address] Jun, [facility] [address] [id number] [address] [place] [address], [place] [address] Jun, [facility] [address] [id number] [address] [place] [address], [place] [address] 20 Jun, 2013 [facility] [address] [id number] [address] [place] [address], [place] [address] 18 Jun, 2013 [facility] [address] [id number] [address] [place] [address], [place] [address] 18 Jun, 2013 [facility] [address] [id number] [address] [place] [address], [place] [address] 17 Jun, 2013 [facility] [address] [id number] [address] [place] [address], [place] [address] 17 Jun, 2013 [facility] [address] [id number] [address] [place] [address], [place] [address] 13 Jun, 2013 [facility] [address] [id number] [address] [place] [address], [place] [address] 12 Jun, 2013 [facility] [address] [id number] [address] [place] [address], [place] [address] 12 Jun, 2013 [facility] [address] [id number] [address] [place] [address], [place] [address] 09 Jun, 2013 [facility] [address] [id number] [address] [place] [address], [place] [address] 05 Jun, 2013 [facility] [address] [id number] [address] [place] [address], [place] [address] 05 Jun, 2013 [facility] [address] [id number] [address] [place] [address], [place] [address] 04 Jun, 2013 [facility] [address] [id number] [address] [place] [address], [place] [address] 04 Jun, 2013 [facility] [address] [id number] [address] [place] [address], [place] [address] 17 May, 2013 [facility] [address] [id number] [address] [place] [address], [place] [address] 17 May, 2013 [facility] [address] [id number] [address] [place] [address], [place] [address] May, [facility] [address] [id number] [address] [place] [address], [place] [address] May, [facility] [address] [id number] [address] [place] [address], [place] [address] May, [facility] [address] [id number] [address] [place] [address], [place] [address] May, [facility] [address] [id number] [address] [place] [address], [place] [address] Apr, [facility] [address] [id number] [address] [place] [address], [place] [address] Apr, [facility] [address] [id number] [address] [place] [address], [place] [address] Apr, [facility] [address] [id number] [address] [place] [address], [place] [address] Apr, [facility] [address] [id number] [address] [place] [address], [place] [address] Apr, [facility] [address] [id number] [address] [place] [address], [place] [address] Apr, [facility] [address] [id number] [address] [place] [address], [place] [address] Apr, [facility] [address] [id number] [address] [place] [address], [place] [address] Apr, [facility] [address] [id number] [address] [place] [address], [place] [address] 26 Mar, 2013 [facility] [address] [id number] [address] [place] [address], [place] [address] 24 Sep2012 [facility] [address] [id number] [address] [place] [address], [place] [address] 17 Mar, 2013 [facility] [address] [id number] [address] [place] [address], [place] [address] 17 Mar, 2013 [facility] [address] [id number] [address] [place] [address] [place] [address] 11 Mar, 2013 [facility] [address] [id number] [address] [place] [address], [place] [address] 10 Mar, 2013 [facility] [address] [id number] [address] [place] [address], [place] [address] 05 Mar, 2013 [facility] [address] [id number] [address] [place] [address], [place] [address] 04 Mar, 2013 [facility] [address] [id number] [address] [place] [address], [place] [address] 20 Jan, 2013 [facility] [address] [id number] [address] [place] [address], [place] [address] Jan, [facility] [address] [id number] [address] [place] [address], [place] [address] 14 Jan, 2013 [facility] [address] [id number] [address] [place] [address], [place] [address] Jan, [facility] [address] [id number] [address] [place] [address], [place] [address] Jan, [facility] [address] [id number] [address] [place] [address], [place] [address] Jan, [facility] [address] [id number] [address] [place] [address], [place] [address] Dec, [facility] [address] [id number] [address] [place] [address], [place] [address] Dec, [facility] [address] [id number] [address] [place] [address], [place] [address] Dec, [facility] [address] [id number] [address] [place] [address], [place] [address] Dec, [facility] [address] [id number] [address] [place] [address], [place] [address] Dec, [facility] [address] [id number] [address] [place] [address], [place] [address] 17 Dec, 2012 [facility] [address] [id number] [address] [place] [address], [place] [address] 16 Dec, 2012 [facility] [address] [id number] [address] [place] [address], [place] [address] 16 Dec, 2012 [facility] [address] [id number] [address] [place] [address], [place] [address] 15 Dec, 2012 [facility] [address] [id number] [address] [place] [address], [place] [address] 10 Dec, 2012 [facility] [address] [id number] [address] [place] [address], [place] [address] 28 Dec, 2012 [facility] [address] [id number] [address] [place] [address], [place] [address] Dec, [facility] [address] [id number] [address] [place] [address], [place] [address] Dec, [facility] [address] [id number] [address] [place] [address], [place] [address] Dec, [facility] [address] [id number] [address] [place] [address], [place] [address] Dec, [facility] [address] [id number] [address] [place] [address], [place] [address] Dec, [facility] [address] [id number] [address] [place] [address], [place] [address] October, [facility] [address] [id number] [address] [place] [address], [place] [address] October, [facility] [address] [id number] [address] [place] [address], [place] [address] October, [facility] [address] [id number] [address] [place] [address], [place] [address] October, [facility] [address] [id number] [address] [place] [address], [place] [address] October, [facility] [address] [id number] [address] [place] [address], [place] [address] October, [facility] [address] [id number] [address] [place] [address], [place] [address] October, [facility] [address] [id number] [address] [place] [address], [place] [address] Oct, [facility] [address] [id number] [address] [place] [address], [place] [address] Oct, [facility] [address] [id number] [address] [place] [address], [place] [address] Oct, [facility] [address] [id number] [address] [place] [address], [place] [address] Oct, [facility] [address] [id number] [address] [place] [address], [place] [address] Oct, [facility] [address] [id number] [address] [place] [address], [place] [address] Oct, [facility] [address] [id number] [address] [place] [address], [place] [address] Oct, [facility] [address] [id number] [address] [place] [address], [place] [address] 15 Oct, 2012 [facility] [address] [id number] [address] [place] [address], [place] [address] Oct, [facility] [address] [id number] [address] [place] [address], [place] [address] Oct, [facility] [address] [id number] [address] [place] [address], [place] [address] Oct, [facility] [address] [id number] [address] [place] [address], [place] [address] Oct, [facility] [address] [id number] [address] [place] [address], [place] [address] Aug, [facility] [address] [id number] [address] [place] [address], [place] [address] Aug, [facility] [address] [id number] [address] [place] [address], [place] [address] 12 Aug, 2012 [facility] [address] [id number] [address] [place] [address], [place] [address] 06 Aug, 2012 [facility] [address] [id number] [address] [place] [address], [place] [address] 05 Aug, 2012 [facility] [address] [id number] [address] [place] [address], [place] [address] 05 Aug, 2012 [facility] [address] [id number] [address] [place] [address], [place] [address] 20 Aug, 2012 [facility] [address] [id number] [address] [place] [address], [place] [address] 14 Aug, 2012 [facility] [address] [id number] [address] [place] [address], [place] [address] 12 Aug, 2012 [facility] [address] [id number] [address] [place] [address], [place] [address] Aug, [facility] [address] [id number] [address] [place] [address], [place] [address] Jul, [facility] [address] [id number] [address] [place] [address], [place] [address] Jul, [facility] [address] [id number] [address] [place] [address], [place] [address] Jul, [facility] [address] [id number] [address] [place] [address], [place] [address] Jun, [facility] [address] [id number] [address] [place] [address], [place] [address] Jun, [facility] [address] [id number] [address] [place] [address], [place] [address] Jun, [facility] [address] [id number] [address] [place] [address], [place] [address] Jun, [facility] [address] [id number] [address] [place] [address], [place] [address] Jun, [facility] [address] [id number] [address] [place] [address], [place] [address] 14 Jun, 2012 [facility] [address] [id number] [address] [place] [address], [place] [address] 14 Jun, 2012 [facility] [address] [id number] [address] [place] [address], [place] [address] 13 Jun, 2012 [facility] [address] [id number] [address] [place] [address], [place] [address] 13 Jun, 2012 [facility] [address] [id number] [address] [place] [address], [place] [address] 11 Jun, 2012 [facility] [address] [id number] [address] [place] [address], [place] [address] 11 Jun, 2012 [facility] [address] [id number] [address] [place] [address], [place] [address] 11 Jun, 2012 [facility] [address] [id number] [address] [place] [address], [place] [address] 11 Jun, 2012 [facility] [address] [id number] [address] [place] [address], [place] [address] 07 Jun, 2012 [facility] [address] [id number] [address] [place] [address], [place] [address] 07 Jun, 2012 [facility] [address] [id number] [address] [place] [address], [place] [address] 06 Jun, 2012 [facility] [address] [id number] [address] [place] [address], [place] [address] 06 Jun, 2012 [facility] [address] [id number] [address] [place] [address], [place] [address] Jun, [facility] [address] [id number] [address] [place] [address], [place] [address] 06 Jun, 2012 [facility] [address] [id number] [address] [place] [address], [place] [address] 05 Jun, 2012 [facility] [address] [id number] [address] [place] [address], [place] [address] Jun, [facility] [address] [id number] [address] [place] [address], [place] [address] Jun, [facility] [address] [id number] [address] [place] [address], [place] [address] Jun, [facility] [address] [id number] [address] [place] [address], [place] [address] May, [facility] [address] [id number] [address] [place] [address], [place] [address] May, [facility] [address] [id number] [address] [place] [address], [place] [address] May, [facility] [address] [id number] [address] [place] [address], [place] [address] May, [facility] [address] [id number] [address] [place] [address], [place] [address] May, [facility] [address] [id number] [address] [place] [address], [place] [address] May, [facility] [address] [id number] [address] [place] [address], [place] [address] May, [facility] [address] [id number] [address] [place] [address], [place] [address] May, [facility] [address] [id number] [address] [place] [address], [place] [address] Apr, [facility] [address] [id number] [address] [place] [address] Apr, [facility] [address] [id number] [address] [place] [address], [place] [address] Apr, [facility] [address] [id number] [address] [place] [address], [place] [address] Apr, [facility] [facility] [address] [id number] [address] [place] [address] Apr, [facility] [address] [id number] [address] [place] [address], [place] [address] Apr, [facility] [address] [id number] [address] [place] [address], [place] [address] Apr, [facility] [address] [id number] [address] [place] [address], [place] [address] Apr, [facility] [address] [id number] [address] [place] [address], [place] [address] Apr, [facility] [address] [id number] [address] [place] [address], [place] [address] Apr, [facility] [address] [id number] [address] [place] [address], [place] [address] Apr, [facility] [address] [id number] [address] [place] [address], [place] [address] Apr, [facility] [address] [id number] [address] [place] [address], [place] [address] Mar, [facility] [address] [id number] [address] [place] [address], [place] [address] 18 Mar, 2012 [facility] [address] [id number] [address] [place] [address] Mar, [facility] [address] [id number] [address] [place] [id number] Mar, [facility] [address] [id number] [address] [place] [id number] Mar, [facility] [address] [id number] [address] [place] [id number] Mar, [facility] [address] [id number] [address] [place] [address], [place] [address] Mar, [facility] [address] [id number] [address] [place] [address], [place] [address] Jan, [facility] [address] [id number] [address] [place] [address] Jan, [facility] [address] [id number] [facility] [id number] Jan, [facility] [address] [id number] [facility] [id number] Jan, [facility] [address] [id number] [address] [place] [address], [place] [address] Jan, [facility] [address] [id number] [address] [place] [address], [place] [address] Jan, [facility] [address] [id number] [address] [place] [address], [place] [address] Jan, [facility] [address] [id number] [address] [place] [address], [place] [address] Jan, [facility] [address] [id number] [address] [place] [address], [place] [address] Jan, [facility] [address] [id number] [address] [place] [address], [place] [address] Jan, [facility] [address] [id number] [address] [place] [address], [place] [address] Jan, [facility] [address] [id number] [address] [place] [address], [place] [address] Dec, [facility] [address] [id number] [address] [place] [address], [place] [address] Dec, [facility] [address] [id number] [address] [place] [address], [place] [address] Dec, [facility] [address] [id number] [address] [place] [address], [place] [address] Dec, [facility] [address] [id number] [address] [place] [address], [place] [address] Dec, [facility] [address] [id number] [address] [place] [address], [place] [address] Dec, [facility] [address] [id number] [address] [place] [address] [place] [address] 18 Jan, 2012 [facility] [address] [id number] [address] [place] [address], [place] [address] 17 Jan, 2012 [facility] [address] [id number] [address] [place] [address], [place] [address] 16 Jan, 2012 [facility] [address] [id number] [address] [place] [address], [place] [address] 13 Jan, 2012 [facility] [address] [id number] [address] [place] [address], [place] [address] 13 Jan, 2012 [facility] [address] [id number] [address] [place] [address], [place] [address] 02 Jan, 2012 [facility] [address] [id number] [address] [place] [address], [place] [address] Dec, [facility] [address] [id number] [address] [place] [address], [place] [address] Dec, [facility] [address] [id number] [address] [place] [address], [place] [address] Dec, [facility] [address] [id number] [address] [place] [address], [place] [address] Dec, [facility] [address] [id number] [address] [place] [address], [place] [address] 15 Dec, 2011 [facility] [address] [id number] [address] [place] [address], [place] [address] Dec, [facility] [address] [id number] [address] [place] [address], [place] [address] Dec, [facility] [address] [id number] [address] [place] [address], [place] [address] October, [facility] [address] [id number] [address] [place] [address], [place] [address] October, [facility] [address] [id number] [address] [place] [address], [place] [address] October, [facility] [address] [id number] [address] [place] [address], [place] [address] October, [facility] [address] [id number] [address] [place] [address], [place] [address] October, [facility] [address] [id number] [address] [place] [address], [place] [address] October, [facility] [address] [id number] [address] [place] [address], [place] [address] Oct, [facility] [address] [id number] [address] [place] [address], [place] [address] 24 Oct, 2011 [facility] [address] [id number] [address] [place] [address], [place] [address] Oct, [facility] [address] [id number] [address] [place] [address], [place] [address] Oct, [facility] [address] [id number] [address] [place] [address], [place] [address] Oct, [facility] [address] [id number] [address] [place] [address], [place] [address] Oct, [facility] [address] [id number] [address] [place] [address], [place] [address] Oct, [facility] [address] [id number] [address] [place] [address], [place] [address] Aug, [facility] [address] [id number] [address] [place] [address], [place] [address] 29 Sep, 2011 [facility] [address] [id number] [address] [place] [address], [place] [address] 19 Sep, 2011 [facility] [address] [id number] [address] [place] [address], [place] [address] 13 Sep, 2011 [facility] [address] [id number] [address] [place] [address], [place] [address] 05 Sep, 2011 [facility] [address] [id number] [address] [place] [address], [place] [address] Aug, [facility] [address] [id number] [address] [place] [address], [place] [address] Aug, [facility] [address] [id number] [address] [place] [address], [place] [address] Aug, [facility] [address] [id number] [address] [place] [address], [place] [address] Aug, [facility] [address] [id number] [address] [place] [address], [place] [address] Jul, [facility] [address] [id number] [address] [place] [address], [place] [address] Jul, [facility] [address] [id number] [address] [place] [address], [place] [address] Jul, [facility] [address] [id number] [address] [place] [address], [place] [address] Jul, [facility] [address] [id number] [address] [place] [address], [place] [address] Jun, [facility] [address] [id number] [address] [place] [address], [place] [address] Jun, [facility] [address] [id number] [address] [place] [address], [place] [address] May, [facility] [address] [id number] [address] [place] [address], [place] [address] May, [facility] [address] [id number] [address] [place] [address], [place] [address] May, [facility] [address] [id number] [address] [place] [address], [place] [address] May, [facility] [address] [id number] [address] [place] [address], [place] [address] 07 May, 2011 [facility] [address] [id number] [address] [place] [address], [place] [address] Apr, [facility] [address] [id number] [address] [place] [address] Apr, [facility] [place] [address] [id number] [address] [place] [address] Apr, [facility] [place] [address] [id number] [address] [place] [address] Jan, [facility] [place] [address] [id number] [address] [place] [address] Dec, [facility] [place] [address] [id number] [address] [place] [address] October, [facility] [place] [address] [id number] [address] [place] [address] Jun, [facility] [place] [address] [id number] [address] [place] [address] Apr, [facility] [place] [address] [id number] [address] [place] [address] Apr, [facility] [place] [address] [id number] [address] [place] [address] Apr, [facility] [place] [address] [id number] [address] [place] [address] Jun, IMMUNIZATIONS No Known Immunizations SOCIAL HISTORY Never Assessed REASON FOR VISIT [facility] [place] PLAN [...]
--- OUTSIDE RECORDS SUMMARY | 2020-01-25 12:56 | XMS REPORT ---
Author Author Ana Mayer Doctor Organization [facility] Address Unknown Phone Unavailable Care Team Providers Care C Winforms Developer Name Role Phone Migration, Doctor Unavailable Unavailable PROBLEMS Type Condition ICD9-CM Code CHN05-ZC Code Onset Dates Condition S tatus SNOMED Code Problem Attention deficit R41.840 Active 76 767426 Problem Chronic hepatitis C without hepatic coma B18.2 Active 996060456 Problem Cannabis abuse F12.10 Active 46043 009 Problem Bipolar disorder, in partial remission, most rec ent episode hypomanic F31.71 Active 504292131 Problem Attention deficit hyperactivity disorder (ADHD), combi luciano type F90.2 Active 15585591 Problem Bipolar 1 disorder F31.9 Active 3 99830544 Problem H/O laminectomy Z98.89 Active 1616 39993 Problem Other chronic pain G89.29 Active 8 3516047 Problem Anxiety disorder, unspecified type F41.9 Active [id number] ALLERGIES No Information ENCOUNTERS Encounter Location Date Diagnosis [facility] [address] [facility] [id number] [address] [place] [id number] Oct, [facility] [address] [facility] [id number] [address] [place] [id number] Aug, Bipolar disorder, in partial remission, most recent episode hypomanic F31.71 ; Attention deficit hyperactivity disorder (ADHD), combined type F90.2 and Anxiety disorder, unspecified type F41.9 [facility] [address] [facility] [id number] [address] [place] [id number] Aug, [facility] [address] [facility] [id number] [address] [place] [address] Aug, Bipolar disorder, in partial remission, most recent episode hypomanic F31.71 [facility] [address] [facility] [id number] [address] [place] [address] Aug, [facility] [address] [id number] [address] [place] [id number] Aug, Bipolar disorder, in partial remission, most recent episode hypomanic F31.71 [facility] [address] [id number] [address] [place] [phone] Aug, Bipolar disorder, in partial remission, most recent episode hypomanic F31.71 ; Attention deficit hyperactivity disorder (ADHD), combined type F90.2 and Anxiety disorder, unspecified type F41.9 [facility] [address] [id number] [address] [place] [phone] Aug, Low back pain M54.5 and Pain in left wrist M25.532 [facility] [address] [id number] [address] [place] [id number] Aug, [facility] [address] [id number] [address] [place] [phone] Jun, [facility] [address] [facility] [id number] [address] [place] [address] Apr, Bipolar disorder, in partial remission, most recent episode hypomanic F31.71 [facility] [address] [id number] [address] [place] [address] Apr, [facility] [address] [id number] [address] [place] [address] Apr, Bipolar disorder, in partial remission, most recent episode hypomanic F31.71 ; Attention deficit hyperactivity disorder (ADHD), combined type F90.2 ; Anxiety disorder, unspecified type F41.9 and Other half-way (current) 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 Z79.899 [facility] [address] [id number] [address] [place] [id number] Apr, Bipolar disorder, in partial remission, most recent episode hypomanic F31.71 [facility] [address] [id number] [address] [place] [address] Apr, Bipolar disorder, in partial remission, most recent episode hypomanic F31.71 [facility] [address] [facility] [id number] [address] [place] [phone] Mar, [facility] [address] [id number] [address] [place] [address] Mar, Bipolar disorder, in partial remission, most recent episode hypomanic F31.71 ; Encounter for immunization Z23 and Low back pain M54.5 [facility] [address] [id number] [address] [place] [address] Mar, Bipolar disorder, in partial remission, most recent episode hypomanic F31.71 [facility] [address] [id number] [address] [place] [address] Mar, Bipolar disorder, in partial remission, most recent episode hypomanic F31.71 [facility] [address] [facility] [id number] [address] [place] [id number] Jan, Bipolar disorder, in partial remission, most recent episode hypomanic F31.71 [facility] [address] [facility] [id number] [address] [place] [id number] Jan, Bipolar disorder, in partial remission, most recent episode hypomanic F31.71 [facility] [address] [facility] [id number] [address] [place] [id number] Dec, Bipolar disorder, in partial remission, most recent episode hypomanic F31.71 [facility] [address] [facility] [id number] [address] [place] [id number] Dec, Bipolar disorder, in partial remission, most recent episode hypomanic F31.71 ; Attention deficit hyperactivity disorder (ADHD), combined type F90.2 ; Anxiety disorder, unspecified type F41.9 and Other half-way (current) 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 Z79.899 [facility] [address] [facility] [id number] [address] [place] [id number] Dec, Bipolar disorder, in partial remission, most recent episode hypomanic F31.71 [facility] [address] [facility] [id number] [address] [place] [id number] Dec, Bipolar disorder, in partial remission, most recent episode hypomanic F31.71 [facility] [address] [id number] [address] [place] [address] October, Bipolar disorder, in partial remission, most recent episode hypomanic F31.71 [facility] [address] [id number] [address] [place] [phone] October, [facility] [address] [id number] [address] [place] [address] October, [facility] [address] [id number] [address] [place] [id number] Oct, Bipolar disorder, in partial remission, most recent episode hypomanic F31.71 ; Attention deficit hyperactivity disorder (ADHD), combined type F90.2 ; Anxiety disorder, unspecified type F41.9 and Encounter for drug screening Z02.83 [facility] [address] [id number] [address] [place] [id number] Oct, Bipolar disorder, in partial remission, most recent episode hypomanic F31.71 [facility] [address] [id number] [address] [place] [id number] Oct, Bipolar disorder, in partial remission, most recent episode hypomanic F31.71 [facility] [address] [id number] [address] [place] [phone] Aug, Bipolar disorder, in partial remission, most recent episode hypomanic F31.71 [facility] [address] [id number] [address] [place] [address] Aug, Bipolar disorder, in partial remission, most recent episode hypomanic F31.71 [facility] [address] [id number] [address] [place] [address] Aug, Bipolar disorder, in partial remission, most recent episode hypomanic F31.71 [facility] [address] [id number] [address] [place] [id number] Jul, Bipolar disorder, in partial remission, most recent episode hypomanic F31.71 ; Attention deficit hyperactivity disorder (ADHD), combined type F90.2 and Anxiety disorder, unspecified type F41.9 [facility] [address] [id number] [address] [place] [id number] Jul, Bipolar disorder, in partial remission, most recent episode hypomanic F31.71 [facility] [address] [id number] [address] [place] [phone] Jun, Bipolar disorder, in partial remission, most recent episode hypomanic F31.71 [facility] [address] [id number] [address] [place] [address] May, Bipolar disorder, in partial remission, most recent episode hypomanic F31.71 [facility] [address] [facility] [id number] [address] [place] [id number] May, Bipolar disorder, in partial remission, most recent episode hypomanic F31.71 [facility] [address] [facility] [id number] [address] [place] [address] Apr, [facility] [address] [id number] [address] [place] [id number] Apr, Bipolar disorder, in partial remission, most recent episode hypomanic F31.71 ; Attention deficit hyperactivity disorder (ADHD), combined type F90.2 ; Anxiety disorder, unspecified type F41.9 and Cannabis abuse F12.10 [facility] [address] [id number] [address] [place] [id number] Apr, Attention deficit hyperactiv ity disorder (ADHD), combined type F90.2 [facility] [address] [id number] [address] [place] [id number] Mar, Attention deficit hyperactiv ity disorder (ADHD), combined type F90.2 [facility] [address] [facility] [id number] [address] [place] [id number] Mar, Anxiety disorder, unspecifie d type F41.9 [facility] [address] [facility] [id number] [address] [place] [address] Jan, Attention deficit hyperactiv ity disorder (ADHD), combined type F90.2 [facility] [address] [facility] [id number] [address] [place] [phone] Jan, Anxiety disorder, unspecifie d type F41.9 [facility] [address] [facility] [id number] [address] [place] [address] Jan, Other chronic pain G89.29 ; Chronic hepatitis C without hepatic coma B18.2 and Bipolar 1 disorder F31.9 [facility] [address] [facility] [id number] [address] [place] [phone] Dec, Attention deficit hyperactiv ity disorder (ADHD), combined type F90.2 [facility] [address] [facility] [id number] [address] [place] [id number] Dec, Bipolar disorder, in partial remission, most recent episode hypomanic F31.71 ; Attention deficit hyperactivity disorder (ADHD), combined type F90.2 and Anxiety disorder, unspecified type F41.9 [facility] [address] [facility] [id number] [address] [place] [address] Dec, Bipolar disorder, in partial remission, most recent episode hypomanic F31.71 ; Attention deficit hyperactivity disorder (ADHD), combined type F90.2 and Anxiety disorder, unspecified type F41.9 [facility] [address] [facility] [id number] [address] [place] [id number] Dec, Bipolar 1 disorder F31.9 and Attention deficit R41.840 [facility] [address] [facility] [id number] [address] [place] [id number] Oct, Other chronic pain G89.29 ; Alopecia L65.9 and Screening, lipid Z13.220 [facility] [address] [facility] [id number] [address] [place] [id number] Oct, [facility] [address] [facility] [id number] [address] [place] [id number] Aug, [facility] [address] [facility] [id number] [address] [place] [id number] Aug, Eustachian tube dysfunction, right H69.81 ; Vertigo R42 and Other chronic pain G89.29 [facility] [address] [id number] [address] [place] [id number] Aug, [facility] [address] [id number] [address] [place] [id number] Jun, [facility] [address] [id number] [address] [place] [phone] Jun, Low back pain M54.5 and Othe r chronic pain G89.29 [facility] [address] [id number] [address] [place] [address] Jun, [facility] [address] [id number] [address] [place] [phone] May, [facility] [address] [id number] [address] [place] [phone] Jan, [facility] [address] [id number] [address] [place] [id number] Dec, [facility] [address] [id number] [address] [place] [address] Dec, [facility] [address] [id number] [address] [place] [address] Jun, [facility] [address] [id number] [address] [place] [id number] Apr, Eustachian tube dysfunction, unspecified laterality H69.80 ; Hot flashes N95.1 and Encounter for immunization Z23 [facility] [address] [id number] [address] [place] [id number] Jan, [facility] [address] [id number] [address] [place] [phone] Jan, [facility] [address] [id number] [address] [place] [id number] Jan, [facility] [address] [id number] [address] [place] [phone] Jan, [facility] [address] [id number] [address] [place] [id number] Jan, Encounter to establish care V65.8 ; Bipolar 1 disorder 296.7 ; Abdominal pain 789.00 ; Constipation 564.00 ; Hard of hearing 389.9 and Drug abuse 305.90 [facility] [address] [id number] [address] [place] [address] Dec, [facility] [address] [id number] [address] [place] [id number] October, [facility] [address] [id number] [address] [place] [phone] October, [facility] [address] [id number] [address] [place] [address] Oct, [facility] [address] [id number] [address] [place] [phone] Oct, [facility] [address] [id number] [address] [place] [phone] Oct, [facility] [address] [id number] [address] [place] [phone] Aug, [facility] [address] [id number] [address] [place] [id number] Aug, [facility] [address] [id number] [address] [place] [phone] Aug, [facility] [address] [id number] [address] [place] [id number] Aug, [facility] [address] [id number] [address] [place] [id number] Aug, [facility] [address] [id number] [address] [place] [id number] Aug, [facility] [address] [id number] [address] [place] [address], [place] [address] Aug, 2014 [facility] [address] [id number] [address] [place] [address], [place] [address] Aug, 2014 [facility] [address] [id number] [address] [place] [address], [place] [address] Aug, 2014 [facility] [address] [id number] [address] [place] [address], [place] [address] Aug, 2014 [facility] [address] [id number] [address] [place] [address], [place] [address] Aug, 2014 [facility] [address] [id number] [address] [place] [address], [place] [address] Aug, 2014 [facility] [address] [id number] [address] [place] [address], [place] [address] Aug, 2014 [facility] [address] [id number] [address] [place] [address], [place] [address] Aug, 2014 [facility] [address] [id number] [address] [place] [address], [place] [address] Aug, [facility] [address] [id number] [address] [place] [address], [place] [address] Jul, [facility] [address] [id number] [address] [place] [address], [place] [address] Jul, [facility] [address] [id number] [address] [place] [address], [place] [address] Jul, [facility] [address] [id number] [address] [place] [address], [place] [address] Jul, [facility] [address] [id number] [address] [place] [address], [place] [address] Jul, [facility] [address] [id number] [address] [place] [address], [place] [address] Jul, [facility] [address] [id number] [address] [place] [address], [place] [address] Jul, [facility] [address] [id number] [address] [place] [address], [place] [address] Jul, [facility] [address] [id number] [address] [place] [address], [place] [address] Jun, [facility] [address] [id number] [address] [place] [address], [place] [address] Jun, [facility] [address] [id number] [address] [place] [address], [place] [address] Jun, [facility] [address] [id number] [address] [place] [address], [place] [address] Jun, [facility] [address] [id number] [address] [place] [address], [place] [address] Jun, [facility] [address] [id number] [address] [place] [address], [place] [address] Jun, [facility] [address] [id number] [address] [place] [address], [place] [address] Jun, [facility] [address] [id number] [address] [place] [address], [place] [address] Jun, [facility] [address] [id number] [address] [place] [address], [place] [address] Jun, [facility] [address] [id number] [address] [place] [address], [place] [address] Jun, [facility] [address] [id number] [address] [place] [address], [place] [address] Jun, [facility] [address] [id number] [address] [place] [address], [place] [address] May, [facility] [address] [id number] [address] [place] [address], [place] [address] May, [facility] [address] [id number] [address] [place] [address], [place] [address] May, [facility] [address] [id number] [address] [place] [address], [place] [address] May, [facility] [address] [id number] [address] [place] [address], [place] [address] May, [facility] [address] [id number] [address] [place] [address], [place] [address] May, [facility] [address] [id number] [address] [place] [address], [place] [address] May, [facility] [address] [id number] [address] [place] [address], [place] [address] Apr, [facility] [address] [id number] [address] [place] [address], [place] [address] Apr, [facility] [address] [id number] [address] [place] [address], [place] [address] Apr, [facility] [address] [id number] [address] [place] [address], [place] [address] Apr, [facility] [address] [id number] [address] [place] [address], [place] [address] Apr, [facility] [address] [id number] [address] [place] [address], [place] [address] Apr, [facility] [address] [id number] [address] [place] [address], [place] [address] Mar, [facility] [address] [id number] [address] [place] [address], [place] [address] 29 Mar, 2013 [facility] [address] [id number] [address] [place] [address], [place] [address] 10 Mar, 2013 [facility] [address] [id number] [address] [place] [address], [place] [address] 10 Mar, 2013 [facility] [address] [id number] [address] [place] [address], [place] [address] Mar, 2013 [facility] [address] [id number] [address] [place] [address], [place] [address] Mar, [facility] [address] [id number] [address] [place] [address], [place] [address] Jan, [facility] [address] [id number] [address] [place] [address], [place] [address] Jan, [facility] [address] [id number] [address] [place] [address], [place] [address] Jan, [facility] [address] [id number] [address] [place] [address], [place] [address] Jan, [facility] [address] [id number] [address] [place] [address], [place] [address] Dec, [facility] [address] [id number] [address] [place] [address], [place] [address] Dec, [facility] [address] [id number] [address] [place] [address], [place] [address] Dec, [facility] [address] [id number] [address] [place] [address], [place] [address] Dec, [facility] [address] [id number] [address] [place] [address], [place] [address] Dec, [facility] [address] [id number] [address] [place] [address], [place] [id number] Dec, [facility] [address] [id number] [address] [place] [address], [place] [address] Dec, [facility] [address] [id number] [address] [place] [address], [place] [address] Dec, [facility] [address] [id number] [address] [place] [address], [place] [address] Dec, [facility] [address] [id number] [address] [place] [address], [place] [address] Dec, [facility] [address] [id number] [address] [place] [address], [place] [address] Dec, [facility] [address] [id number] [address] [place] [address], [place] [address] Dec, [facility] [address] [id number] [address] [place] [address], [place] [address] October, [facility] [address] [id number] [address] [place] [address], [place] [address] October, [facility] [address] [id number] [address] [place] [address], [place] [address] October, [facility] [address] [id number] [address] [place] [address], [place] [address] October, [facility] [address] [id number] [address] [place] [address], [place] [address] October, [facility] [address] [id number] [address] [place] [address], [place] [id number] October, [facility] [address] [id number] [address] [place] [address], [place] [address] Oct, [facility] [address] [id number] [address] [place] [address], [place] [id number] Oct, [facility] [address] [id number] [address] [place] [address], [place] [address] Oct, [facility] [address] [id number] [address] [place] [address], [place] [address] Oct, [facility] [address] [id number] [address] [place] [address], [place] [address] Oct, [facility] [address] [address] [id number] [address] [place] [address], [place] [address] Oct, [facility] [address] [id number] [address] [place] [address], [place] [address] Oct, [facility] [address] [id number] [address] [place] [address], [place] [address] Oct, [facility] [address] [id number] [address] [place] [address], [place] [address] Oct, [facility] [address] [id number] [facility] [place] [address] 09 Oct, 2013 [facility] [address] [id number] [facility] [place] [address] Oct, [facility] [address] [id number] [address] [place] [address], [place] [address] Oct, [facility] [address] [id number] [address] [place] [address], [place] [address] Aug, [facility] [address] [id number] [address] [place] [address], [place] [address] Aug, [facility] [address] [id number] [address] [place] [address], [place] [address] Aug, [facility] [address] [id number] [address] [place] [address], [place] [address] Aug, [facility] [address] [id number] [address] [place] [address], [place] [address] Aug, [facility] [address] [id number] [address] [place] [address], [place] [address] 05 Aug, 2013 [facility] [address] [id number] [address] [place] [address], [place] [address] Aug, [facility] [address] [id number] [address] [place] [address], [place] [address] Aug, [facility] [address] [id number] [address] [place] [address], [place] [address] Aug, [facility] [address] [id number] [address] [place] [address], [place] [address] Aug, [facility] [address] [id number] [address] [place] [address], [place] [address] Aug, [facility] [address] [id number] [address] [place] [address], [place] [address] Aug, [facility] [address] [id number] [address] [place] [address], [place] [address] Aug, [facility] [address] [id number] [address] [place] [address], [place] [address] 20 Aug, 2013 [facility] [address] [id number] [address] [place] [address], [place] [address] 14 Aug, 2013 [facility] [address] [id number] [address] [place] [address], [place] [address] 14 Aug, 2013 [facility] [address] [id number] [address] [place] [address], [place] [address] 14 Aug, 2013 [facility] [address] [id number] [address] [place] [address], [place] [address] 14 Aug, 2013 [facility] [address] [id number] [address] [place] [address], [place] [address] 07 Aug, 2013 [facility] [address] [id number] [address] [place] [address], [place] [address] 07 Aug, 2013 [facility] [address] [id number] [address] [place] [address], [place] [address] 06 Aug, 2013 [facility] [address] [id number] [address] [place] [address], [place] [address] 06 Aug, 2013 [facility] [address] [id number] [address] [place] [address], [place] [address] 04 Aug, 2013 [facility] [address] [id number] [address] [place] [address], [place] [address] 04 Aug, 2013 [facility] [address] [id number] [address] [place] [address], [place] [address] Aug, [facility] [address] [id number] [address] [place] [address], [place] [address] Jul, [facility] [address] [id number] [address] [place] [address], [place] [address] Jul, [facility] [address] [id number] [address] [place] [address], [place] [address] Jul, [facility] [address] [id number] [address] [place] [address], [place] [address] Jul, [facility] [address] [id number] [address] [place] [address], [place] [address] Jul, [facility] [address] [id number] [address] [place] [address], [place] [address] Jul, [facility] [address] [id number] [address] [place] [address], [place] [address] Jul, [facility] [address] [id number] [address] [place] [address], [place] [address] Jul, [facility] [address] [id number] [address] [place] [address], [place] [address] Jul, [facility] [address] [id number] [address] [place] [address], [place] [address] Jul, [facility] [address] [id number] [address] [place] [address], [place] [address] Jul, [facility] [address] [id number] [address] [place] [address], [place] [address] Jul, [facility] [address] [id number] [address] [place] [address], [place] [address] Jul, [facility] [address] [id number] [address] [place] [address], [place] [address] Jul, [facility] [address] [id number] [address] [place] [address], [place] [address] Jul, [facility] [address] [id number] [address] [place] [address], [place] [address] Jul, [facility] [address] [id number] [address] [place] [address], [place] [address] Jul, [facility] [address] [id number] [address] [place] [address], [place] [address] Jul, [facility] [address] [id number] [address] [place] [address], [place] [address] Jul, [facility] [address] [id number] [address] [place] [address], [place] [address] Jul, [facility] [address] [id number] [address] [place] [address], [place] [address] Jun, [facility] [address] [id number] [address] [place] [address], [place] [address] Jun, [facility] [address] [id number] [address] [place] [address], [place] [address] Jun, [facility] [address] [id number] [address] [place] [address], [place] [address] Jun, [facility] [address] [id number] [address] [place] [address], [place] [address] Jun, [facility] [address] [id number] [address] [place] [address], [place] [address] Jun, [facility] [address] [id number] [address] [place] [address], [place] [address] Jun, [facility] [address] [id number] [address] [place] [address], [place] [address] Jun, [facility] [address] [id number] [address] [place] [address], [place] [address] Jun, [facility] [address] [id number] [address] [place] [address], [place] [address] Jun, [facility] [address] [id number] [address] [place] [address], [place] [address] Jun, [facility] [address] [id number] [address] [place] [address], [place] [address] Jun, [facility] [address] [id number] [address] [place] [address], [place] [address] Jun, [facility] [address] [id number] [address] [place] [address], [place] [address] Jun, [facility] [address] [id number] [address] [place] [address], [place] [address] 20 Jun, 2013 [facility] [address] [id number] [address] [place] [address], [place] [address] 18 Jun, 2013 [facility] [address] [id number] [address] [place] [address], [place] [address] 18 Jun, 2013 [facility] [address] [id number] [address] [place] [address], [place] [address] 17 Jun, 2013 [facility] [address] [id number] [address] [place] [address], [place] [address] 17 Jun, 2013 [facility] [address] [id number] [address] [place] [address], [place] [address] 13 Jun, 2013 [facility] [address] [id number] [address] [place] [address], [place] [address] 12 Jun, 2013 [facility] [address] [id number] [address] [place] [address], [place] [address] 12 Jun, 2013 [facility] [address] [id number] [address] [place] [address], [place] [address] 09 Jun, 2013 [facility] [address] [id number] [address] [place] [address], [place] [address] 05 Jun, 2013 [facility] [address] [id number] [address] [place] [address], [place] [address] 05 Jun, 2013 [facility] [address] [id number] [address] [place] [address], [place] [address] 04 Jun, 2013 [facility] [address] [id number] [address] [place] [address], [place] [address] 04 Jun, 2013 [facility] [address] [id number] [address] [place] [address], [place] [address] 17 May, 2013 [facility] [address] [id number] [address] [place] [address], [place] [address] 17 May, 2013 [facility] [address] [id number] [address] [place] [address], [place] [address] May, [facility] [address] [id number] [address] [place] [address], [place] [address] May, [facility] [address] [id number] [address] [place] [address], [place] [address] May, [facility] [address] [id number] [address] [place] [address], [place] [address] May, [facility] [address] [id number] [address] [place] [address], [place] [address] Apr, [facility] [address] [id number] [address] [place] [address], [place] [address] Apr, [facility] [address] [id number] [address] [place] [address], [place] [address] Apr, [facility] [address] [id number] [address] [place] [address], [place] [address] Apr, [facility] [address] [id number] [address] [place] [address], [place] [address] Apr, [facility] [address] [id number] [address] [place] [address], [place] [address] Apr, [facility] [address] [id number] [address] [place] [address], [place] [address] Apr, [facility] [address] [id number] [address] [place] [address], [place] [address] Apr, [facility] [address] [id number] [address] [place] [address], [place] [address] 26 Mar, 2013 [facility] [address] [id number] [address] [place] [address], [place] [address] 24 Sep2012 [facility] [address] [id number] [address] [place] [address], [place] [address] 17 Mar, 2013 [facility] [address] [id number] [address] [place] [address], [place] [address] 17 Mar, 2013 [facility] [address] [id number] [address] [place] [address] [place] [address] 11 Mar, 2013 [facility] [address] [id number] [address] [place] [address], [place] [address] 10 Mar, 2013 [facility] [address] [id number] [address] [place] [address], [place] [address] 05 Mar, 2013 [facility] [address] [id number] [address] [place] [address], [place] [address] 04 Mar, 2013 [facility] [address] [id number] [address] [place] [address], [place] [address] 20 Jan, 2013 [facility] [address] [id number] [address] [place] [address], [place] [address] Jan, [facility] [address] [id number] [address] [place] [address], [place] [address] 14 Jan, 2013 [facility] [address] [id number] [address] [place] [address], [place] [address] Jan, [facility] [address] [id number] [address] [place] [address], [place] [address] Jan, [facility] [address] [id number] [address] [place] [address], [place] [address] Jan, [facility] [address] [id number] [address] [place] [address], [place] [address] Dec, [facility] [address] [id number] [address] [place] [address], [place] [address] Dec, [facility] [address] [id number] [address] [place] [address], [place] [address] Dec, [facility] [address] [id number] [address] [place] [address], [place] [address] Dec, [facility] [address] [id number] [address] [place] [address], [place] [address] Dec, [facility] [address] [id number] [address] [place] [address], [place] [address] 17 Dec, 2012 [facility] [address] [id number] [address] [place] [address], [place] [address] 16 Dec, 2012 [facility] [address] [id number] [address] [place] [address], [place] [address] 16 Dec, 2012 [facility] [address] [id number] [address] [place] [address], [place] [address] 15 Dec, 2012 [facility] [address] [id number] [address] [place] [address], [place] [address] 10 Dec, 2012 [facility] [address] [id number] [address] [place] [address], [place] [address] 28 Dec, 2012 [facility] [address] [id number] [address] [place] [address], [place] [address] Dec, [facility] [address] [id number] [address] [place] [address], [place] [address] Dec, [facility] [address] [id number] [address] [place] [address], [place] [address] Dec, [facility] [address] [id number] [address] [place] [address], [place] [address] Dec, [facility] [address] [id number] [address] [place] [address], [place] [address] Dec, [facility] [address] [id number] [address] [place] [address], [place] [address] October, [facility] [address] [id number] [address] [place] [address], [place] [address] October, [facility] [address] [id number] [address] [place] [address], [place] [address] October, [facility] [address] [id number] [address] [place] [address], [place] [address] October, [facility] [address] [id number] [address] [place] [address], [place] [address] October, [facility] [address] [id number] [address] [place] [address], [place] [address] October, [facility] [address] [id number] [address] [place] [address], [place] [address] October, [facility] [address] [id number] [address] [place] [address], [place] [address] Oct, [facility] [address] [id number] [address] [place] [address], [place] [address] Oct, [facility] [address] [id number] [address] [place] [address], [place] [address] Oct, [facility] [address] [id number] [address] [place] [address], [place] [address] Oct, [facility] [address] [id number] [address] [place] [address], [place] [address] Oct, [facility] [address] [id number] [address] [place] [address], [place] [address] Oct, [facility] [address] [id number] [address] [place] [address], [place] [address] Oct, [facility] [address] [id number] [address] [place] [address], [place] [address] 15 Oct, 2012 [facility] [address] [id number] [address] [place] [address], [place] [address] Oct, [facility] [address] [id number] [address] [place] [address], [place] [address] Oct, [facility] [address] [id number] [address] [place] [address], [place] [address] Oct, [facility] [address] [id number] [address] [place] [address], [place] [address] Oct, [facility] [address] [id number] [address] [place] [address], [place] [address] Aug, [facility] [address] [id number] [address] [place] [address], [place] [address] Aug, [facility] [address] [id number] [address] [place] [address], [place] [address] 12 Aug, 2012 [facility] [address] [id number] [address] [place] [address], [place] [address] 06 Aug, 2012 [facility] [address] [id number] [address] [place] [address], [place] [id number] 05 Aug, 2012 [facility] [address] [id number] [address] [place] [address], [place] [id number] 05 Aug, 2012 [facility] [address] [id number] [address] [place] [address], [place] [address] 20 Aug, 2012 [facility] [address] [id number] [address] [place] [address], [place] [address] 14 Aug, 2012 [facility] [address] [id number] [address] [place] [address], [place] [address] 12 Aug, 2012 [facility] [address] [id number] [address] [place] [address], [place] [address] Aug, [facility] [address] [id number] [address] [place] [address], [place] [address] Jul, [facility] [address] [id number] [address] [place] [address], [place] [address] Jul, [facility] [address] [id number] [address] [place] [address], [place] [address] Jul, [facility] [address] [id number] [address] [place] [address], [place] [address] Jun, [facility] [address] [id number] [address] [place] [address], [place] [address] Jun, [facility] [address] [id number] [address] [place] [address], [place] [address] Jun, [facility] [address] [id number] [address] [place] [address], [place] [address] Jun, [facility] [address] [id number] [address] [place] [address], [place] [address] Jun, [facility] [address] [id number] [address] [place] [address], [place] [address] 14 Jun, 2012 [facility] [address] [id number] [address] [place] [address], [place] [address] 14 Jun, 2012 [facility] [address] [id number] [address] [place] [address], [place] [address] 13 Jun, 2012 [facility] [address] [id number] [address] [place] [address], [place] [address] 13 Jun, 2012 [facility] [address] [id number] [address] [place] [address], [place] [address] 11 Jun, 2012 [facility] [address] [id number] [address] [place] [address], [place] [address] 11 Jun, 2012 [facility] [address] [id number] [address] [place] [address], [place] [address] 11 Jun, 2012 [facility] [address] [id number] [address] [place] [address], [place] [address] 11 Jun, 2012 [facility] [address] [id number] [address] [place] [address], [place] [address] 07 Jun, 2012 [facility] [address] [id number] [address] [place] [address], [place] [address] 07 Jun, 2012 [facility] [address] [id number] [address] [place] [address], [place] [address] 06 Jun, 2012 [facility] [address] [id number] [address] [place] [address], [place] [address] 06 Jun, 2012 [facility] [address] [id number] [address] [place] [address], [place] [address] Jun, [facility] [address] [id number] [address] [place] [address], [place] [address] 06 Jun, 2012 [facility] [address] [id number] [address] [place] [address], [place] [address] 05 Jun, 2012 [facility] [address] [id number] [address] [place] [address], [place] [address] Jun, [facility] [address] [id number] [address] [place] [address], [place] [address] Jun, [facility] [address] [id number] [address] [place] [address], [place] [address] Jun, [facility] [address] [id number] [address] [place] [address], [place] [address] May, [facility] [address] [id number] [address] [place] [address], [place] [address] May, [facility] [address] [id number] [address] [place] [address], [place] [address] May, [facility] [address] [id number] [address] [place] [address], [place] [id number] May, [facility] [address] [id number] [address] [place] [address], [place] [address] May, [facility] [address] [id number] [address] [place] [address], [place] [address] May, [facility] [address] [id number] [address] [place] [address], [place] [address] May, [facility] [address] [id number] [address] [place] [address], [place] [address] May, [facility] [address] [id number] [address] [place] [address], [place] [address] Apr, [facility] [address] [id number] [address] [place] [id number] Apr, [facility] [address] [id number] [address] [place] [address], [place] [address] Apr, [facility] [address] [id number] [address] [place] [address], [place] [address] Apr, [facility] [address] [id number] [address] [place] [id number] Apr, [facility] [address] [id number] [address] [place] [address], [place] [address] Apr, [facility] [address] [id number] [address] [place] [address], [place] [id number] Apr, [facility] [address] [id number] [address] [place] [address], [place] [address] Apr, [facility] [facility] [address] [id number] [address] [place] [address], [place] [address] Apr, [facility] [address] [id number] [address] [place] [address], [place] [address] Apr, [facility] [address] [id number] [address] [place] [address], [place] [address] Apr, [facility] [address] [id number] [address] [place] [address], [place] [address] Apr, [facility] [address] [id number] [address] [place] [address], [place] [address] Mar, [facility] [address] [id number] [address] [place] [address], [place] [address] 18 Mar, 2012 [facility] [address] [id number] [address] [place] [id number] Mar, [facility] [address] [id number] [address] [place] [id number] Mar, [facility] [address] [id number] [address] [place] [id number] Mar, [facility] [address] [id number] [address] [place] [id number] Mar, [facility] [address] [id number] [address] [place] [address], [place] [address] Mar, [facility] [address] [id number] [address] [place] [address], [place] [address] Jan, [facility] [address] [id number] [address] [place] [id number] Jan, [facility] [address] [id number] [facility] [place] [id number] Jan, [facility] [address] [id number] [facility] [id number] Jan, [facility] [address] [id number] [address] [place] [address], [place] [address] Jan, [facility] [address] [id number] [address] [place] [address], [place] [address] Jan, [facility] [address] [id number] [address] [place] [address], [place] [address] Jan, [facility] [address] [id number] [address] [place] [address], [place] [address] Jan, [facility] [address] [id number] [address] [place] [address], [place] [address] Jan, [facility] [address] [id number] [address] [place] [address], [place] [address] Jan, [facility] [address] [id number] [address] [place] [address], [place] [address] Jan, [facility] [address] [id number] [address] [place] [address], [place] [address] Dec, [facility] [address] [id number] [address] [place] [address], [place] [address] Dec, [facility] [address] [id number] [address] [place] [address], [place] [address] Dec, [facility] [address] [id number] [address] [place] [address], [place] [address] Dec, [facility] [address] [id number] [address] [place] [address], [place] [address] Dec, [facility] [address] [id number] [address] [place] [address], [place] [address] Dec, [facility] [address] [id number] [address] [place] [address] [place] [id number] 18 Jan, 2012 [facility] [address] [id number] [address] [place] [address], [place] [address] 17 Jan, 2012 [facility] [address] [id number] [address] [place] [address], [place] [address] 16 Jan, 2012 [facility] [address] [id number] [address] [place] [address], [place] [address] 13 Jan, 2012 [facility] [address] [id number] [address] [place] [address], [place] [address] 13 Jan, 2012 [facility] [address] [id number] [address] [place] [address], [place] [address] 02 Jan, 2012 [facility] [address] [id number] [address] [place] [address], [place] [address] Dec, [facility] [address] [id number] [address] [place] [address], [place] [address] Dec, [facility] [address] [id number] [address] [place] [address], [place] [address] Dec, [facility] [address] [id number] [address] [place] [address], [place] [address] Dec, [facility] [address] [id number] [address] [place] [address], [place] [address] 15 Dec, 2011 [facility] [address] [id number] [address] [place] [address], [place] [address] Dec, [facility] [address] [id number] [address] [place] [address], [place] [address] Dec, [facility] [address] [id number] [address] [place] [address], [place] [address] October, [facility] [address] [id number] [address] [place] [address], [place] [address] October, [facility] [address] [id number] [address] [place] [address], [place] [address] October, [facility] [address] [id number] [address] [place] [address], [place] [address] October, [facility] [address] [id number] [address] [place] [address], [place] [address] October, [facility] [address] [id number] [address] [place] [address], [place] [address] October, [facility] [address] [id number] [address] [place] [address], [place] [address] Oct, [facility] [address] [id number] [address] [place] [address], [place] [address] 24 Oct, 2011 [facility] [address] [id number] [address] [place] [address], [place] [address] Oct, [facility] [address] [id number] [address] [place] [address], [place] [address] Oct, [facility] [address] [id number] [address] [place] [address], [place] [address] Oct, [facility] [address] [id number] [address] [place] [address], [place] [address] Oct, [facility] [address] [id number] [address] [place] [address], [place] [address] Oct, [facility] [address] [id number] [address] [place] [address], [place] [address] Aug, [facility] [address] [id number] [address] [place] [address], [place] [address] 29 Sep, 2011 [facility] [address] [id number] [address] [place] [address], [place] [address] 19 Sep, 2011 [facility] [address] [id number] [address] [place] [address], [place] [address] 13 Sep, 2011 [facility] [address] [id number] [address] [place] [address], [place] [address] 05 Sep, 2011 [facility] [address] [id number] [address] [place] [address], [place] [address] Aug, [facility] [address] [id number] [address] [place] [address], [place] [address] Aug, [facility] [address] [id number] [address] [place] [address], [place] [address] Aug, [facility] [address] [id number] [address] [place] [address], [place] [address] Aug, [facility] [address] [id number] [address] [place] [address], [place] [address] Jul, [facility] [address] [id number] [address] [place] [address], [place] [address] Jul, [facility] [address] [id number] [address] [place] [address], [place] [address] Jul, [facility] [address] [id number] [address] [place] [address], [place] [address] Jul, [facility] [address] [id number] [address] [place] [address], [place] [address] Jun, [facility] [address] [id number] [address] [place] [address], [place] [address] Jun, [facility] [address] [id number] [address] [place] [address], [place] [address] May, [facility] [address] [id number] [address] [place] [address], [place] [address] May, [facility] [address] [id number] [address] [place] [address], [place] [address] May, [facility] [address] [id number] [address] [place] [address], [place] [address] May, [facility] [address] [id number] [address] [place] [address], [place] [address] 07 May, 2011 [facility] [address] [id number] [address] [place] [address], [place] [address] Apr, [facility] [address] [id number] [address] [place] [id number] Apr, [facility] [address] [id number] [address] [place] [id number] Apr, [facility] [address] [id number] [address] [place] [id number] Jan, [facility] [address] [id number] [address] [place] [id number] Dec, [facility] [address] [id number] [address] [place] [id number] October, [facility] [address] [id number] [address] [place] [id number] Jun, [facility] [address] [id number] [address] [place] [id number] Apr, [facility] [address] [id number] [address] [place] [id number] Apr, [facility] [address] [id number] [address] [place] [id number] Apr, [facility] [address] [id number] [address] [place] [id number] Jun, IMMUNIZATIONS No Known Immunizations SOCIAL HISTORY Never Assessed REASON FOR VISIT [facility] PLAN OF CARE VITAL SIGNS MEDICATIONS Unknown Medications RESULTS No Results PROCEDURES No Known procedures INSTRUCTIONS MEDICATIONS ADMINISTERED No Known Medications MEDICAL (GENERAL) HISTORY Type Description Date Medical History Psychiatric disorder Medical History Hard of hearing Surgical History Neofibrous tumor Surgical History back injection Hospitalization History Intestinal blockage Hospitalization History past psychiatric hospitalizations x2
--- OUTSIDE RECORDS SUMMARY | 2020-01-25 12:56 | XMS REPORT ---
Author Author Ana Mayer Doctor Organization [facility] Address Unknown Phone Unavailable Care Team Providers Care City Marshal Name Role Phone Migration, Doctor Unavailable Unavailable PROBLEMS Type Condition ICD9-CM Code [id number] Code Onset Dates Condition S tatus SNOMED Code Problem Attention deficit R41.840 Active 76 406897 Problem Chronic hepatitis C without hepatic coma B18.2 Active 562581989 Problem Cannabis abuse F12.10 Active 03224 009 Problem Bipolar disorder, in partial remission, most rec ent episode hypomanic F31.71 Active 921969639 Problem Attention deficit hyperactivity disorder (ADHD), combi luciano type F90.2 Active 02974982 Problem Bipolar 1 disorder F31.9 Active 3 30236995 Problem H/O laminectomy Z98.89 Active 1616 99616 Problem Other chronic pain G89.29 Active 8 2372989 Problem Anxiety disorder, unspecified type F41.9 Active [id number] ALLERGIES No Information ENCOUNTERS Encounter Location Date Diagnosis [facility] [address] [facility] [id number] [address] [place] [address] Oct, [facility] [address] [facility] [id number] [address] [place] [address] Aug, Bipolar disorder, in partial remission, most recent episode hypomanic F31.71 ; Attention deficit hyperactivity disorder (ADHD), combined type F90.2 and Anxiety disorder, unspecified type F41.9 [facility] [address] [facility] [id number] [address] [place] [address] Aug, [facility] [address] [facility] [id number] [address] [place] [address] Aug, Bipolar disorder, in partial remission, most recent episode hypomanic F31.71 [facility] [address] [facility] [id number] [address] [place] [address] Aug, [facility] [address] [id number] [address] [place] [address] Aug, Bipolar disorder, in partial remission, most recent episode hypomanic F31.71 [facility] [address] [id number] [address] [place] [address] Aug, Bipolar disorder, in partial remission, most recent episode hypomanic F31.71 ; Attention deficit hyperactivity disorder (ADHD), combined type F90.2 and Anxiety disorder, unspecified type F41.9 [facility] [address] [id number] [address] [place] [address] Aug, Low back pain M54.5 and Pain in left wrist M25.532 [facility] [address] [id number] [address] [place] [address] Aug, [facility] [address] [id number] [address] [place] [address] Jun, [facility] [address] [facility] [id number] [address] [place] [address] Apr, Bipolar disorder, in partial remission, most recent episode hypomanic F31.71 [facility] [address] [id number] [address] [place] [address] Apr, [facility] [address] [id number] [address] [place] [address] Apr, Bipolar disorder, in partial remission, most recent episode hypomanic F31.71 ; Attention deficit hyperactivity disorder (ADHD), combined type F90.2 ; Anxiety disorder, unspecified type F41.9 and Other retirement (current) 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 Z79.899 [facility] [address] [id number] [address] [place] [address] Apr, Bipolar disorder, in partial remission, most recent episode hypomanic F31.71 [facility] [address] [id number] [address] [place] [address] Apr, Bipolar disorder, in partial remission, most recent episode hypomanic F31.71 [facility] [address] [facility] [id number] [address] [place] [address] Mar, [facility] [address] [id number] [address] [place] [address] Mar, Bipolar disorder, in partial remission, most recent episode hypomanic F31.71 ; Encounter for immunization Z23 and Low back pain M54.5 [facility] [address] [id number] [address] [place] [address] Mar, Bipolar disorder, in partial remission, most recent episode hypomanic F31.71 [facility] [address] [id number] [address] [place] [address] Mar, Bipolar disorder, in partial remission, most recent episode hypomanic F31.71 [facility] [address] [facility] [id number] [address] [place] [address] Jan, Bipolar disorder, in partial remission, most recent episode hypomanic F31.71 [facility] [address] [facility] [id number] [address] [place] [address] Jan, Bipolar disorder, in partial remission, most recent episode hypomanic F31.71 [facility] [address] [facility] [id number] [address] [place] [address] Dec, Bipolar disorder, in partial remission, most recent episode hypomanic F31.71 [facility] [address] [facility] [id number] [address] [place] [address] Dec, Bipolar disorder, in partial remission, most recent episode hypomanic F31.71 ; Attention deficit hyperactivity disorder (ADHD), combined type F90.2 ; Anxiety disorder, unspecified type F41.9 and Other retirement (current) 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 Z79.899 [facility] [address] [facility] [id number] [address] [place] [address] Dec, Bipolar disorder, in partial remission, most recent episode hypomanic F31.71 [facility] [address] [facility] [id number] [address] [place] [address] Dec, Bipolar disorder, in partial remission, most recent episode hypomanic F31.71 [facility] [address] [id number] [address] [place] [address] October, Bipolar disorder, in partial remission, most recent episode hypomanic F31.71 [facility] [address] [id number] [address] [place] [address] October, [facility] [address] [id number] [address] [place] [address] October, [facility] [address] [id number] [address] [place] [address] Oct, Bipolar disorder, in partial remission, most recent episode hypomanic F31.71 ; Attention deficit hyperactivity disorder (ADHD), combined type F90.2 ; Anxiety disorder, unspecified type F41.9 and Encounter for drug screening Z02.83 [facility] [address] [id number] [address] [place] [address] Oct, Bipolar disorder, in partial remission, most recent episode hypomanic F31.71 [facility] [address] [id number] [address] [place] [address] Oct, Bipolar disorder, in partial remission, most recent episode hypomanic F31.71 [facility] [address] [id number] [address] [place] [address] Aug, Bipolar disorder, in partial remission, most recent episode hypomanic F31.71 [facility] [address] [id number] [address] [place] [address] Aug, Bipolar disorder, in partial remission, most recent episode hypomanic F31.71 [facility] [address] [id number] [address] [place] [address] Aug, Bipolar disorder, in partial remission, most recent episode hypomanic F31.71 [facility] [address] [id number] [address] [place] [address] Jul, Bipolar disorder, in partial remission, most recent episode hypomanic F31.71 ; Attention deficit hyperactivity disorder (ADHD), combined type F90.2 and Anxiety disorder, unspecified type F41.9 [facility] [address] [id number] [address] [place] [address] Jul, Bipolar disorder, in partial remission, most recent episode hypomanic F31.71 [facility] [address] [id number] [address] [place] [address] Jun, Bipolar disorder, in partial remission, most recent episode hypomanic F31.71 [facility] [address] [id number] [address] [place] [address] May, Bipolar disorder, in partial remission, most recent episode hypomanic F31.71 [facility] [address] [facility] [id number] [address] [place] [address] May, Bipolar disorder, in partial remission, most recent episode hypomanic F31.71 [facility] [address] [facility] [id number] [address] [place] [address] Apr, [facility] [address] [id number] [address] [place] [address] Apr, Bipolar disorder, in partial remission, most recent episode hypomanic F31.71 ; Attention deficit hyperactivity disorder (ADHD), combined type F90.2 ; Anxiety disorder, unspecified type F41.9 and Cannabis abuse F12.10 [facility] [address] [id number] [address] [place] [address] Apr, Attention deficit hyperactiv ity disorder (ADHD), combined type F90.2 [facility] [address] [id number] [address] [place] [address] Mar, Attention deficit hyperactiv ity disorder (ADHD), combined type F90.2 [facility] [address] [facility] [id number] [address] [place] [address] Mar, Anxiety disorder, unspecifie d type F41.9 [facility] [address] [facility] [id number] [address] [place] [address] Jan, Attention deficit hyperactiv ity disorder (ADHD), combined type F90.2 [facility] [address] [facility] [id number] [address] [place] [address] Jan, Anxiety disorder, unspecifie d type F41.9 [facility] [address] [facility] [id number] [address] [place] [address] Jan, Other chronic pain G89.29 ; Chronic hepatitis C without hepatic coma B18.2 and Bipolar 1 disorder F31.9 [facility] [address] [facility] [id number] [address] [place] [address] Dec, Attention deficit hyperactiv ity disorder (ADHD), combined type F90.2 [facility] [address] [facility] [id number] [address] [place] [address] Dec, Bipolar disorder, in partial remission, most recent episode hypomanic F31.71 ; Attention deficit hyperactivity disorder (ADHD), combined type F90.2 and Anxiety disorder, unspecified type F41.9 [facility] [address] [facility] [id number] [address] [place] [address] Dec, Bipolar disorder, in partial remission, most recent episode hypomanic F31.71 ; Attention deficit hyperactivity disorder (ADHD), combined type F90.2 and Anxiety disorder, unspecified type F41.9 [facility] [address] [facility] [id number] [address] [place] [address] Dec, Bipolar 1 disorder F31.9 and Attention deficit R41.840 [facility] [address] [facility] [id number] [address] [place] [address] Oct, Other chronic pain G89.29 ; Alopecia L65.9 and Screening, lipid Z13.220 [facility] [address] [facility] [id number] [address] [place] [address] Oct, [place] [address] [facility] [id number] [address] [place] [address] Aug, [facility] [address] [facility] [id number] [address] [place] [address] Aug, Eustachian tube dysfunction, right H69.81 ; Vertigo R42 and Other chronic pain G89.29 [facility] [address] [id number] [address] [place] [address] Aug, [facility] [address] [id number] [address] [place] [address] Jun, [facility] [address] [id number] [address] [place] [address] Jun, Low back pain M54.5 and Othe r chronic pain G89.29 [facility] [address] [id number] [address] [place] [address] Jun, [facility] [address] [id number] [address] [place] [address] May, [facility] [address] [id number] [address] [place] [address] Jan, [facility] [address] [id number] [address] [place] [address] Dec, [facility] [address] [id number] [address] [place] [address] Dec, [facility] [address] [id number] [address] [place] [address] Jun, [facility] [address] [id number] [address] [place] [address] Apr, Eustachian tube dysfunction, unspecified laterality H69.80 ; Hot flashes N95.1 and Encounter for immunization Z23 [facility] [address] [id number] [address] [place] [address] Jan, [facility] [address] [id number] [address] [place] [address] Jan, [facility] [address] [id number] [address] [place] [address] Jan, [facility] [address] [id number] [address] [place] [address] Jan, [facility] [address] [id number] [address] [place] [address] Jan, Encounter to establish care V65.8 ; Bipolar 1 disorder 296.7 ; Abdominal pain 789.00 ; Constipation 564.00 ; Hard of hearing 389.9 and Drug abuse 305.90 [facility] [address] [id number] [address] [place] [address] Dec, [facility] [address] [id number] [address] [place] [address] October, [facility] [address] [id number] [address] [place] [address] October, [facility] [address] [id number] [address] [place] [address] Oct, [facility] [address] [id number] [address] [place] [address] Oct, [facility] [address] [id number] [address] [place] [address] Oct, [facility] [address] [id number] [address] [place] [address] Aug, [facility] [address] [id number] [address] [place] [address] Aug, [facility] [address] [id number] [address] [place] [address] Aug, [facility] [address] [id number] [address] [place] [address] Aug, [facility] [address] [id number] [address] [place] [address] Aug, [facility] [address] [id number] [address] [place] [address] Aug, [facility] [address] [id number] [address] [place] [address], [place] [address] Aug, 2014 [facility] [address] [id number] [address] [place] [address], [place] [address] Aug, 2014 [facility] [address] [id number] [address] [place] [address], [place] [address] Aug, 2014 [facility] [address] [id number] [address] [place] [address], [place] [address] Aug, 2014 [facility] [address] [id number] [address] [place] [address], [place] [address] Aug, 2014 [facility] [address] [id number] [address] [place] [address], [place] [address] Aug, 2014 [facility] [address] [id number] [address] [place] [address], [place] [address] Aug, 2014 [facility] [address] [id number] [address] [place] [address], [place] [address] Aug, 2014 [facility] [address] [id number] [address] [place] [address], [place] [address] Aug, [facility] [address] [id number] [address] [place] [address], [place] [address] Jul, [facility] [address] [id number] [address] [place] [address], [place] [address] Jul, [facility] [address] [id number] [address] [place] [address], [place] [address] Jul, [facility] [address] [id number] [address] [place] [address], [place] [address] Jul, [facility] [address] [id number] [address] [place] [address], [place] [address] Jul, [facility] [address] [id number] [address] [place] [address], [place] [address] Jul, [facility] [address] [id number] [address] [place] [address], [place] [address] Jul, [facility] [address] [id number] [address] [place] [address], [place] [address] Jul, [facility] [address] [id number] [address] [place] [address], [place] [address] Jun, [facility] [address] [id number] [address] [place] [address], [place] [address] Jun, [facility] [address] [id number] [address] [place] [address], [place] [address] Jun, [facility] [address] [id number] [address] [place] [address], [place] [address] Jun, [facility] [address] [id number] [address] [place] [address], [place] [address] Jun, [facility] [address] [id number] [address] [place] [address], [place] [address] Jun, [facility] [address] [id number] [address] [place] [address], [place] [address] Jun, [facility] [address] [id number] [address] [place] [address], [place] [address] Jun, [facility] [address] [id number] [address] [place] [address], [place] [address] Jun, [facility] [address] [id number] [address] [place] [address], [place] [address] Jun, [facility] [address] [id number] [address] [place] [address], [place] [address] Jun, [facility] [address] [id number] [address] [place] [address], [place] [address] May, [facility] [address] [id number] [address] [place] [address], [place] [address] May, [facility] [address] [id number] [address] [place] [address], [place] [address] May, [facility] [address] [id number] [address] [place] [address], [place] [address] May, [facility] [address] [id number] [address] [place] [address], [place] [address] May, [facility] [address] [id number] [address] [place] [address], [place] [address] May, [facility] [address] [id number] [address] [place] [address], [place] [address] May, [facility] [address] [id number] [address] [place] [address], [place] [address] Apr, [facility] [address] [id number] [address] [place] [address], [place] [address] Apr, [facility] [address] [id number] [address] [place] [address], [place] [address] Apr, [facility] [address] [id number] [address] [place] [address], [place] [address] Apr, [facility] [address] [id number] [address] [place] [address], [place] [address] Apr, [facility] [address] [id number] [address] [place] [address], [place] [address] Apr, [facility] [address] [id number] [address] [place] [address], [place] [address] Mar, [facility] [address] [id number] [address] [place] [address], [place] [address] 29 Mar, 2013 [facility] [address] [id number] [address] [place] [address], [place] [address] 10 Mar, 2013 [facility] [address] [id number] [address] [place] [address], [place] [address] 10 Mar, 2013 [facility] [address] [id number] [address] [place] [address], [place] [address] Mar, 2013 [facility] [address] [id number] [address] [place] [address], [place] [address] Mar, [facility] [address] [id number] [address] [place] [address], [place] [address] Jan, [facility] [address] [id number] [address] [place] [address], [place] [address] Jan, [facility] [address] [id number] [address] [place] [address], [place] [address] Jan, [facility] [address] [id number] [address] [place] [address], [place] [address] Jan, [facility] [address] [id number] [address] [place] [address], [place] [address] Dec, [facility] [address] [id number] [address] [place] [address], [place] [address] Dec, [facility] [address] [id number] [address] [place] [address], [place] [address] Dec, [facility] [address] [id number] [address] [place] [address], [place] [address] Dec, [facility] [address] [id number] [address] [place] [address], [place] [address] Dec, [facility] [address] [id number] [address] [place] [address], [place] [address] Dec, [facility] [address] [id number] [address] [place] [address], [place] [address] Dec, [facility] [address] [id number] [address] [place] [address], [place] [address] Dec, [facility] [address] [id number] [address] [place] [address], [place] [address] Dec, [facility] [address] [id number] [address] [place] [address], [place] [address] Dec, [facility] [address] [id number] [address] [place] [address], [place] [address] Dec, [facility] [address] [id number] [address] [place] [address], [place] [address] Dec, [facility] [address] [id number] [address] [place] [address], [place] [address] October, [facility] [address] [id number] [address] [place] [address], [place] [address] October, [facility] [address] [id number] [address] [place] [address], [place] [address] October, [facility] [address] [id number] [address] [place] [address], [place] [address] October, [facility] [address] [id number] [address] [place] [address], [place] [address] October, [facility] [address] [id number] [address] [place] [address], [place] [address] October, [facility] [address] [id number] [address] [place] [address], [place] [address] Oct, [facility] [address] [id number] [address] [place] [address], [place] [address] Oct, [facility] [address] [id number] [address] [place] [address], [place] [address] Oct, [facility] [address] [id number] [address] [place] [address], [place] [address] Oct, [facility] [address] [id number] [address] [place] [address], [place] [address] Oct, [facility] [address] [id number] [address] [place] [address], [place] [address] Oct, [facility] [address] [id number] [address] [place] [address], [place] [address] Oct, [facility] [address] [id number] [address] [place] [address], [place] [address] Oct, [facility] [address] [id number] [address] [place] [address], [place] [address] Oct, [facility] [address] [id number] [facility] [place] [address] 09 Oct, 2013 [facility] [address] [id number] [facility] [place] [address] Oct, [facility] [address] [id number] [address] [place] [address], [place] [address] Oct, [facility] [address] [id number] [address] [place] [address], [place] [address] Aug, [facility] [address] [id number] [address] [place] [address], [place] [address] Aug, [facility] [address] [id number] [address] [place] [address], [place] [address] Aug, [facility] [address] [id number] [address] [place] [address], [place] [address] Aug, [facility] [address] [id number] [address] [place] [address], [place] [address] Aug, [facility] [address] [id number] [address] [place] [address], [place] [address] 05 Aug, 2013 [facility] [address] [id number] [address] [place] [address], [place] [address] Aug, [facility] [address] [id number] [address] [place] [address], [place] [address] Aug, [facility] [address] [id number] [address] [place] [address], [place] [address] Aug, [facility] [address] [id number] [address] [place] [address], [place] [address] Aug, [facility] [address] [id number] [address] [place] [address], [place] [address] Aug, [facility] [address] [id number] [address] [place] [address], [place] [address] Aug, [facility] [address] [id number] [address] [place] [address], [place] [address] Aug, [facility] [address] [id number] [address] [place] [address], [place] [address] 20 Aug, 2013 [facility] [address] [id number] [address] [place] [address], [place] [address] 14 Aug, 2013 [facility] [address] [id number] [address] [place] [address], [place] [address] 14 Aug, 2013 [facility] [address] [id number] [address] [place] [address], [place] [address] 14 Aug, 2013 [facility] [address] [id number] [address] [place] [address], [place] [address] 14 Aug, 2013 [facility] [address] [id number] [address] [place] [address], [place] [address] 07 Aug, 2013 [facility] [address] [id number] [address] [place] [address], [place] [address] 07 Aug, 2013 [facility] [address] [id number] [address] [place] [address], [place] [address] 06 Aug, 2013 [facility] [address] [id number] [address] [place] [address], [place] [address] 06 Aug, 2013 [facility] [address] [id number] [address] [place] [address], [place] [address] 04 Aug, 2013 [facility] [address] [id number] [address] [place] [address], [place] [address] 04 Aug, 2013 [facility] [address] [id number] [address] [place] [address], [place] [address] Aug, [facility] [address] [id number] [address] [place] [address], [place] [address] Jul, [facility] [address] [id number] [address] [place] [address], [place] [address] Jul, [facility] [address] [id number] [address] [place] [address], [place] [address] Jul, [facility] [address] [id number] [address] [place] [address], [place] [address] Jul, [facility] [address] [id number] [address] [place] [address], [place] [address] Jul, [facility] [address] [id number] [address] [place] [address], [place] [address] Jul, [facility] [address] [id number] [address] [place] [address], [place] [address] Jul, [facility] [address] [id number] [address] [place] [address], [place] [address] Jul, [facility] [address] [id number] [address] [place] [address], [place] [address] Jul, [facility] [address] [id number] [address] [place] [address], [place] [address] Jul, [facility] [address] [id number] [address] [place] [address], [place] [address] Jul, [facility] [address] [id number] [address] [place] [address], [place] [address] Jul, [facility] [address] [id number] [address] [place] [address], [place] [address] Jul, [facility] [address] [id number] [address] [place] [address], [place] [address] Jul, [facility] [address] [id number] [address] [place] [address], [place] [address] Jul, [facility] [address] [id number] [address] [place] [address], [place] [address] Jul, [facility] [address] [id number] [address] [place] [address], [place] [address] Jul, [facility] [address] [id number] [address] [place] [address], [place] [address] Jul, [facility] [address] [id number] [address] [place] [address], [place] [address] Jul, [facility] [address] [id number] [address] [place] [address], [place] [address] Jul, [facility] [address] [id number] [address] [place] [address], [place] [address] Jun, [facility] [address] [id number] [address] [place] [address], [place] [address] Jun, [facility] [address] [id number] [address] [place] [address], [place] [address] Jun, [facility] [address] [id number] [address] [place] [address], [place] [address] Jun, [facility] [address] [id number] [address] [place] [address], [place] [address] Jun, [facility] [address] [id number] [address] [place] [address], [place] [address] Jun, [facility] [address] [id number] [address] [place] [address], [place] [address] Jun, [facility] [address] [id number] [address] [place] [address], [place] [address] Jun, [facility] [address] [id number] [address] [place] [address], [place] [address] Jun, [facility] [address] [id number] [address] [place] [address], [place] [address] Jun, [facility] [address] [id number] [address] [place] [address], [place] [address] Jun, [facility] [address] [id number] [address] [place] [address], [place] [address] Jun, [facility] [address] [id number] [address] [place] [address], [place] [address] Jun, [facility] [address] [id number] [address] [place] [address], [place] [address] Jun, [facility] [address] [id number] [address] [place] [address], [place] [address] 20 Jun, 2013 [facility] [address] [id number] [address] [place] [address], [place] [address] 18 Jun, 2013 [facility] [address] [id number] [address] [place] [address], [place] [address] 18 Jun, 2013 [facility] [address] [id number] [address] [place] [address], [place] [address] 17 Jun, 2013 [facility] [address] [id number] [address] [place] [address], [place] [address] 17 Jun, 2013 [facility] [address] [id number] [address] [place] [address], [place] [address] 13 Jun, 2013 [facility] [address] [id number] [address] [place] [address], [place] [address] 12 Jun, 2013 [facility] [address] [id number] [address] [place] [address], [place] [address] 12 Jun, 2013 [facility] [address] [id number] [address] [place] [address], [place] [address] 09 Jun, 2013 [facility] [address] [id number] [address] [place] [address], [place] [address] 05 Jun, 2013 [facility] [address] [id number] [address] [place] [address], [place] [address] 05 Jun, 2013 [facility] [address] [id number] [address] [place] [address], [place] [address] 04 Jun, 2013 [facility] [address] [id number] [address] [place] [address], [place] [address] 04 Jun, 2013 [facility] [address] [id number] [address] [place] [address], [place] [address] 17 May, 2013 [facility] [address] [id number] [address] [place] [address], [place] [address] 17 May, 2013 [facility] [address] [id number] [address] [place] [address], [place] [address] May, [facility] [address] [id number] [address] [place] [address], [place] [address] May, [facility] [address] [id number] [address] [place] [address], [place] [address] May, [facility] [address] [id number] [address] [place] [address], [place] [address] May, [facility] [address] [id number] [address] [place] [address], [place] [address] Apr, [facility] [address] [id number] [address] [place] [address], [place] [address] Apr, [facility] [address] [id number] [address] [place] [address], [place] [address] Apr, [facility] [address] [id number] [address] [place] [address], [place] [address] Apr, [facility] [address] [id number] [address] [place] [address], [place] [address] Apr, [facility] [address] [id number] [address] [place] [address], [place] [address] Apr, [facility] [address] [id number] [address] [place] [address], [place] [address] Apr, [facility] [address] [id number] [address] [place] [address], [place] [address] Apr, [facility] [address] [id number] [address] [place] [address], [place] [address] 26 Mar, 2013 [facility] [address] [id number] [address] [place] [address], [place] [address] 24 Sep2012 [facility] [address] [id number] [address] [place] [address], [place] [address] 17 Mar, 2013 [facility] [address] [id number] [address] [place] [address], [place] [address] 17 Mar, 2013 [facility] [address] [id number] [address] [place] [address] [place] [address] 11 Mar, 2013 [facility] [address] [id number] [address] [place] [address], [place] [address] 10 Mar, 2013 [facility] [address] [id number] [address] [place] [address], [place] [address] 05 Mar, 2013 [facility] [address] [id number] [address] [place] [address], [place] [address] 04 Mar, 2013 [facility] [address] [id number] [address] [place] [address], [place] [address] 20 Jan, 2013 [facility] [address] [id number] [address] [place] [address], [place] [address] Jan, [facility] [address] [id number] [address] [place] [address], [place] [address] 14 Jan, 2013 [facility] [address] [id number] [address] [place] [address], [place] [address] Jan, [facility] [address] [id number] [address] [place] [address], [place] [address] Jan, [facility] [address] [id number] [address] [place] [address], [place] [address] Jan, [facility] [address] [id number] [address] [place] [address], [place] [address] Dec, [facility] [address] [id number] [address] [place] [address], [place] [address] Dec, [facility] [address] [id number] [address] [place] [address], [place] [address] Dec, [facility] [address] [id number] [address] [place] [address], [place] [address] Dec, [facility] [address] [id number] [address] [place] [address], [place] [address] Dec, [facility] [address] [id number] [address] [place] [address], [place] [address] 17 Dec, 2012 [facility] [address] [id number] [address] [place] [address], [place] [address] 16 Dec, 2012 [facility] [address] [id number] [address] [place] [address], [place] [address] 16 Dec, 2012 [facility] [address] [id number] [address] [place] [address], [place] [address] 15 Dec, 2012 [facility] [address] [id number] [address] [place] [address], [place] [address] 10 Dec, 2012 [facility] [address] [id number] [address] [place] [address], [place] [address] 28 Dec, 2012 [facility] [address] [id number] [address] [place] [address], [place] [address] Dec, [facility] [address] [id number] [address] [place] [address], [place] [address] Dec, [facility] [address] [id number] [address] [place] [address], [place] [address] Dec, [facility] [address] [id number] [address] [place] [address], [place] [address] Dec, [facility] [address] [id number] [address] [place] [address], [place] [address] Dec, [facility] [address] [id number] [address] [place] [address], [place] [address] October, [facility] [address] [id number] [address] [place] [address], [place] [address] October, [facility] [address] [id number] [address] [place] [address], [place] [address] October, [facility] [address] [id number] [address] [place] [address], [place] [address] October, [facility] [address] [id number] [address] [place] [address], [place] [address] October, [facility] [address] [id number] [address] [place] [address], [place] [address] October, [facility] [address] [id number] [address] [place] [address], [place] [address] October, [facility] [address] [id number] [address] [place] [address], [place] [address] Oct, [facility] [address] [id number] [address] [place] [address], [place] [address] Oct, [facility] [address] [id number] [address] [place] [address], [place] [address] Oct, [facility] [address] [id number] [address] [place] [address], [place] [address] Oct, [facility] [address] [id number] [address] [place] [address], [place] [address] Oct, [facility] [address] [id number] [address] [place] [address], [place] [address] Oct, [facility] [address] [id number] [address] [place] [address], [place] [address] Oct, [facility] [address] [id number] [address] [place] [address], [place] [address] 15 Oct, 2012 [facility] [address] [id number] [address] [place] [address], [place] [address] Oct, [facility] [address] [id number] [address] [place] [address], [place] [address] Oct, [facility] [address] [id number] [address] [place] [address], [place] [address] Oct, [facility] [address] [id number] [address] [place] [address], [place] [address] Oct, [facility] [address] [id number] [address] [place] [address], [place] [address] Aug, [facility] [address] [id number] [address] [place] [address], [place] [address] Aug, [facility] [address] [id number] [address] [place] [address], [place] [address] 12 Aug, 2012 [facility] [address] [id number] [address] [place] [address], [place] [address] 06 Aug, 2012 [facility] [address] [id number] [address] [place] [address], [place] [address] 05 Aug, 2012 [facility] [address] [id number] [address] [place] [address], [place] [address] 05 Aug, 2012 [facility] [address] [id number] [address] [place] [address], [place] [address] 20 Aug, 2012 [facility] [address] [id number] [address] [place] [address], [place] [address] 14 Aug, 2012 [facility] [address] [id number] [address] [place] [address], [place] [address] 12 Aug, 2012 [facility] [address] [id number] [address] [place] [address], [place] [address] Aug, [facility] [address] [id number] [address] [place] [address], [place] [address] Jul, [facility] [address] [id number] [address] [place] [address], [place] [address] Jul, [facility] [address] [id number] [address] [place] [address], [place] [address] Jul, [facility] [address] [id number] [address] [place] [address], [place] [address] Jun, [facility] [address] [id number] [address] [place] [address], [place] [address] Jun, [facility] [address] [id number] [address] [place] [address], [place] [address] Jun, [facility] [address] [id number] [address] [place] [address], [place] [address] Jun, [facility] [address] [id number] [address] [place] [address], [place] [address] Jun, [facility] [address] [id number] [address] [place] [address], [place] [address] 14 Jun, 2012 [facility] [address] [id number] [address] [place] [address], [place] [address] 14 Jun, 2012 [facility] [address] [id number] [address] [place] [address], [place] [address] 13 Jun, 2012 [facility] [address] [id number] [address] [place] [address], [place] [address] 13 Jun, 2012 [facility] [address] [id number] [address] [place] [address], [place] [address] 11 Jun, 2012 [facility] [address] [id number] [address] [place] [address], [place] [address] 11 Jun, 2012 [facility] [address] [id number] [address] [place] [address], [place] [address] 11 Jun, 2012 [facility] [address] [id number] [address] [place] [address], [place] [address] 11 Jun, 2012 [facility] [address] [id number] [address] [place] [address], [place] [address] 07 Jun, 2012 [facility] [address] [id number] [address] [place] [address], [place] [address] 07 Jun, 2012 [facility] [address] [id number] [address] [place] [address], [place] [address] 06 Jun, 2012 [facility] [address] [id number] [address] [place] [address], [place] [address] 06 Jun, 2012 [facility] [address] [id number] [address] [place] [address], [place] [address] Jun, [facility] [address] [id number] [address] [place] [address], [place] [address] 06 Jun, 2012 [facility] [address] [id number] [address] [place] [address], [place] [address] 05 Jun, 2012 [facility] [address] [id number] [address] [place] [address], [place] [address] Jun, [facility] [address] [id number] [address] [place] [address], [place] [address] Jun, [facility] [address] [id number] [address] [place] [address], [place] [address] Jun, [facility] [address] [id number] [address] [place] [address], [place] [address] May, [facility] [address] [id number] [address] [place] [address], [place] [address] May, [facility] [address] [id number] [address] [place] [address], [place] [address] May, [facility] [address] [id number] [address] [place] [address], [place] [address] May, [facility] [address] [id number] [address] [place] [address], [place] [address] May, [facility] [address] [id number] [address] [place] [address], [place] [address] May, [facility] [address] [id number] [address] [place] [address], [place] [address] May, [facility] [address] [id number] [address] [place] [address], [place] [address] May, [facility] [address] [id number] [address] [place] [address], [place] [address] Apr, [facility] [address] [id number] [address] [place] [id number] Apr, [facility] [address] [id number] [address] [place] [address], [place] [address] Apr, [facility] [address] [id number] [address] [place] [address], [place] [address] Apr, [facility] [address] [id number] [address] [place] [address] Apr, [facility] [address] [id number] [address] [place] [address], [place] [address] Apr, [facility] [address] [id number] [address] [place] [address], [place] [address] Apr, [facility] [address] [id number] [address] [place] [address], [place] [address] Apr, [facility] [address] [id number] [address] [place] [address], [place] [address] Apr, [facility] [address] [id number] [address] [place] [address], [place] [address] Apr, [facility] [address] [id number] [address] [place] [address], [place] [address] Apr, [facility] [address] [id number] [address] [place] [address], [place] [address] Apr, [facility] [address] [id number] [address] [place] [address], [place] [address] Mar, [facility] [address] [id number] [address] [place] [address], [place] [address] 18 Mar, 2012 [facility] [address] [id number] [address] [place] [address] Mar, [facility] [address] [id number] [address] [place] [id number] Mar, [facility] [address] [id number] [address] [place] [id number] Mar, [facility] [address] [id number] [address] [place] [id number] Mar, [facility] [address] [id number] [address] [place] [address], [place] [address] Mar, [facility] [address] [id number] [address] [place] [address], [place] [address] Jan, [facility] [address] [id number] [address] [place] [address] Jan, [facility] [address] [id number] [facility] [id number] Jan, [facility] [address] [id number] [facility] [id number] Jan, [facility] [address] [id number] [address] [place] [address], [place] [address] Jan, [facility] [address] [id number] [address] [place] [address], [place] [address] Jan, [facility] [address] [id number] [address] [place] [address], [place] [address] Jan, [facility] [address] [id number] [address] [place] [address], [place] [address] Jan, [facility] [address] [id number] [address] [place] [address], [place] [address] Jan, [facility] [address] [id number] [address] [place] [address], [place] [address] Jan, [facility] [address] [id number] [address] [place] [address], [place] [address] Jan, [facility] [address] [id number] [address] [place] [address], [place] [address] Dec, [facility] [address] [id number] [address] [place] [address], [place] [address] Dec, [facility] [address] [id number] [address] [place] [address], [place] [address] Dec, [facility] [address] [id number] [address] [place] [address], [place] [address] Dec, [facility] [address] [id number] [address] [place] [address], [place] [address] Dec, [facility] [address] [id number] [address] [place] [address], [place] [address] Dec, [facility] [address] [id number] [address] [place] [address] [place] [address] 18 Jan, 2012 [facility] [address] [id number] [address] [place] [address], [place] [address] 17 Jan, 2012 [facility] [address] [id number] [address] [place] [address], [place] [address] 16 Jan, 2012 [facility] [address] [id number] [address] [place] [address], [place] [address] 13 Jan, 2012 [facility] [address] [id number] [address] [place] [address], [place] [address] 13 Jan, 2012 [facility] [address] [id number] [address] [place] [address], [place] [address] 02 Jan, 2012 [facility] [address] [id number] [address] [place] [address], [place] [address] Dec, [facility] [address] [id number] [address] [place] [address], [place] [address] Dec, [facility] [address] [id number] [address] [place] [address], [place] [address] Dec, [facility] [address] [id number] [address] [place] [address], [place] [address] Dec, [facility] [address] [id number] [address] [place] [address], [place] [address] 15 Dec, 2011 [facility] [address] [id number] [address] [place] [address], [place] [address] Dec, [facility] [address] [id number] [address] [place] [address], [place] [address] Dec, [facility] [address] [id number] [address] [place] [address], [place] [address] October, [facility] [address] [id number] [address] [place] [address], [place] [address] October, [facility] [address] [id number] [address] [place] [address], [place] [address] October, [facility] [address] [id number] [address] [place] [address], [place] [address] October, [facility] [address] [id number] [address] [place] [address], [place] [address] October, [facility] [address] [id number] [address] [place] [address], [place] [address] October, [facility] [address] [id number] [address] [place] [address], [place] [address] Oct, [facility] [address] [id number] [address] [place] [address], [place] [address] 24 Oct, 2011 [facility] [address] [id number] [address] [place] [address], [place] [address] Oct, [facility] [address] [id number] [address] [place] [address], [place] [address] Oct, [facility] [address] [id number] [address] [place] [address], [place] [address] Oct, [facility] [address] [id number] [address] [place] [address], [place] [address] Oct, [facility] [address] [id number] [address] [place] [address], [place] [address] Oct, [facility] [address] [id number] [address] [place] [address], [place] [address] Aug, [facility] [address] [id number] [address] [place] [address], [place] [address] 29 Sep, 2011 [facility] [address] [id number] [address] [place] [address], [place] [address] 19 Sep, 2011 [facility] [address] [id number] [address] [place] [address], [place] [address] 13 Sep, 2011 [facility] [address] [id number] [address] [place] [address], [place] [address] 05 Sep, 2011 [facility] [address] [id number] [address] [place] [address], [place] [address] Aug, [facility] [address] [id number] [address] [place] [address], [place] [address] Aug, [facility] [address] [id number] [address] [place] [address], [place] [address] Aug, [facility] [address] [id number] [address] [place] [address], [place] [address] Aug, [facility] [address] [id number] [address] [place] [address], [place] [address] Jul, [facility] [address] [id number] [address] [place] [address], [place] [address] Jul, [facility] [address] [id number] [address] [place] [address], [place] [address] Jul, [facility] [address] [id number] [address] [place] [address], [place] [address] Jul, [facility] [address] [id number] [address] [place] [address], [place] [address] Jun, [facility] [address] [id number] [address] [place] [address], [place] [address] Jun, [facility] [address] [id number] [address] [place] [address], [place] [address] May, [facility] [address] [id number] [address] [place] [address], [place] [address] May, [facility] [address] [id number] [address] [place] [address], [place] [address] May, [facility] [address] [id number] [address] [place] [address], [place] [address] May, [facility] [address] [id number] [address] [place] [address], [place] [address] 07 May, 2011 [facility] [address] [id number] [address] [place] [address], [place] [address] Apr, [facility] [address] [id number] [address] [place] [address] Apr, [facility] [address] [id number] [address] [place] [address] Apr, [facility] [address] [id number] [address] [place] [address] Jan, [facility] [address] [id number] [address] [place] [address] Dec, [facility] [address] [id number] [address] [place] [address] October, [facility] [address] [id number] [address] [place] [address] Jun, [facility] [address] [id number] [address] [place] [address] Apr, [facility] [address] [id number] [address] [place] [address] Apr, [facility] [address] [id number] [address] [place] [address] Apr, [facility] [address] [id number] [address] [place] [address] Jun, IMMUNIZATIONS No Known Immunizations SOCIAL HISTORY Never Assessed REASON FOR VISIT [facility] PLAN OF CARE VITAL SIGNS MEDICATIONS Unknown Medications RESULTS No Results PROCEDURES No Known procedures INSTRUCTIONS MEDICATIONS ADMINISTERED No Known Medications MEDICAL (GENERAL) HISTORY Type Description Date Medical History Psychiatric disorder Medical History Hard of hearing Surgical History Neofibrous tumor Surgical History back injection Hospitalization History Intestinal blockage Hospitalization History past psychiatric hospitalizations x2
--- OUTSIDE RECORDS SUMMARY | 2020-01-25 12:57 | XMS REPORT ---
Author Author Ana Mayer Doctor Organization [facility] Address Unknown Phone Unavailable Care Team Providers Care Prefinish Operator Name Role Phone Migration, Doctor Unavailable Unavailable PROBLEMS Type Condition ICD9-CM Code [id number] Code Onset Dates Condition S tatus SNOMED Code Problem Attention deficit R41.840 Active 76 569812 Problem Chronic hepatitis C without hepatic coma B18.2 Active 170416635 Problem Cannabis abuse F12.10 Active 05326 009 Problem Bipolar disorder, in partial remission, most rec ent episode hypomanic F31.71 Active 165156544 Problem Attention deficit hyperactivity disorder (ADHD), combi luciano type F90.2 Active 29952901 Problem Bipolar 1 disorder F31.9 Active 3 37137947 Problem H/O laminectomy Z98.89 Active 1616 43021 Problem Other chronic pain G89.29 Active 8 3782332 Problem Anxiety disorder, unspecified type F41.9 Active [id number] ALLERGIES No Information ENCOUNTERS Encounter Location Date Diagnosis [facility] [address] [facility] [id number] [address] [place] [phone] Oct, [facility] [address] [facility] [id number] [address] [place] [address] Aug, Bipolar disorder, in partial remission, most recent episode hypomanic F31.71 ; Attention deficit hyperactivity disorder (ADHD), combined type F90.2 and Anxiety disorder, unspecified type F41.9 [facility] [address] [facility] [id number] [address] [place] [address] Aug, [facility] [address] [facility] [id number] [address] [place] [phone] Aug, Bipolar disorder, in partial remission, most recent episode hypomanic F31.71 [facility] [address] [facility] [id number] [address] [place] [address] Aug, [facility] [address] [id number] [address] [place] [address] Aug, Bipolar disorder, in partial remission, most recent episode hypomanic F31.71 [facility] [address] [id number] [address] [place] [address] Aug, Bipolar disorder, in partial remission, most recent episode hypomanic F31.71 ; Attention deficit hyperactivity disorder (ADHD), combined type F90.2 and Anxiety disorder, unspecified type F41.9 [facility] [address] [id number] [address] [place] [address] Aug, Low back pain M54.5 and Pain in left wrist M25.532 [facility] [address] [id number] [address] [place] [address] Aug, [facility] [address] [id number] [address] [place] [address] Jun, [facility] [address] [facility] [id number] [address] [place] [address] Apr, Bipolar disorder, in partial remission, most recent episode hypomanic F31.71 [facility] [address] [id number] [address] [place] [address] Apr, [facility] [address] [id number] [address] [place] [address] Apr, Bipolar disorder, in partial remission, most recent episode hypomanic F31.71 ; Attention deficit hyperactivity disorder (ADHD), combined type F90.2 ; Anxiety disorder, unspecified type F41.9 and Other shelter (current) 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 Z79.899 [facility] [address] [id number] [address] [place] [address] Apr, Bipolar disorder, in partial remission, most recent episode hypomanic F31.71 [facility] [address] [id number] [address] [place] [address] Apr, Bipolar disorder, in partial remission, most recent episode hypomanic F31.71 [facility] [address] [facility] [id number] [address] [place] [address] Mar, [facility] [address] [id number] [address] [place] [address] Mar, Bipolar disorder, in partial remission, most recent episode hypomanic F31.71 ; Encounter for immunization Z23 and Low back pain M54.5 [facility] [address] [id number] [address] [place] [address] Mar, Bipolar disorder, in partial remission, most recent episode hypomanic F31.71 [facility] [address] [id number] [address] [place] [address] Mar, Bipolar disorder, in partial remission, most recent episode hypomanic F31.71 [facility] [address] [facility] [id number] [address] [place] [phone] Jan, Bipolar disorder, in partial remission, most recent episode hypomanic F31.71 [facility] [address] [facility] [id number] [address] [place] [address] Jan, Bipolar disorder, in partial remission, most recent episode hypomanic F31.71 [facility] [address] [facility] [id number] [address] [place] [address] Dec, Bipolar disorder, in partial remission, most recent episode hypomanic F31.71 [facility] [address] [facility] [id number] [address] [place] [address] Dec, Bipolar disorder, in partial remission, most recent episode hypomanic F31.71 ; Attention deficit hyperactivity disorder (ADHD), combined type F90.2 ; Anxiety disorder, unspecified type F41.9 and Other shelter (current) 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 Z79.899 [facility] [address] [facility] [id number] [address] [place] [address] Dec, Bipolar disorder, in partial remission, most recent episode hypomanic F31.71 [facility] [address] [facility] [id number] [address] [place] [address] Dec, Bipolar disorder, in partial remission, most recent episode hypomanic F31.71 [facility] [address] [id number] [address] [place] [address] October, Bipolar disorder, in partial remission, most recent episode hypomanic F31.71 [facility] [address] [id number] [address] [place] [address] October, [facility] [address] [id number] [address] [place] [address] October, [facility] [address] [id number] [address] [place] [address] Oct, Bipolar disorder, in partial remission, most recent episode hypomanic F31.71 ; Attention deficit hyperactivity disorder (ADHD), combined type F90.2 ; Anxiety disorder, unspecified type F41.9 and Encounter for drug screening Z02.83 [facility] [address] [id number] [address] [place] [address] Oct, Bipolar disorder, in partial remission, most recent episode hypomanic F31.71 [facility] [address] [id number] [address] [place] [address] Oct, Bipolar disorder, in partial remission, most recent episode hypomanic F31.71 [facility] [address] [id number] [address] [place] [address] Aug, Bipolar disorder, in partial remission, most recent episode hypomanic F31.71 [facility] [address] [id number] [address] [place] [address] Aug, Bipolar disorder, in partial remission, most recent episode hypomanic F31.71 [facility] [address] [id number] [address] [place] [address] Aug, Bipolar disorder, in partial remission, most recent episode hypomanic F31.71 [facility] [address] [id number] [address] [place] [address] Jul, Bipolar disorder, in partial remission, most recent episode hypomanic F31.71 ; Attention deficit hyperactivity disorder (ADHD), combined type F90.2 and Anxiety disorder, unspecified type F41.9 [facility] [address] [id number] [address] [place] [address] Jul, Bipolar disorder, in partial remission, most recent episode hypomanic F31.71 [facility] [address] [id number] [address] [place] [phone] Jun, Bipolar disorder, in partial remission, most recent episode hypomanic F31.71 [facility] [address] [id number] [address] [place] [address] May, Bipolar disorder, in partial remission, most recent episode hypomanic F31.71 [facility] [address] [facility] [id number] [address] [place] [address] May, Bipolar disorder, in partial remission, most recent episode hypomanic F31.71 [facility] [address] [facility] [id number] [address] [place] [address] Apr, [facility] [address] [id number] [address] [place] [address] Apr, Bipolar disorder, in partial remission, most recent episode hypomanic F31.71 ; Attention deficit hyperactivity disorder (ADHD), combined type F90.2 ; Anxiety disorder, unspecified type F41.9 and Cannabis abuse F12.10 [facility] [address] [id number] [address] [place] [address] Apr, Attention deficit hyperactiv ity disorder (ADHD), combined type F90.2 [facility] [address] [id number] [address] [place] [address] Mar, Attention deficit hyperactiv ity disorder (ADHD), combined type F90.2 [facility] [address] [facility] [id number] [address] [place] [phone] Mar, Anxiety disorder, unspecifie d type F41.9 [facility] [address] [facility] [id number] [address] [place] [phone] Jan, Attention deficit hyperactiv ity disorder (ADHD), combined type F90.2 [facility] [address] [facility] [id number] [address] [place] [address] Jan, Anxiety disorder, unspecifie d type F41.9 [facility] [address] [facility] [id number] [address] [place] [address] Jan, Other chronic pain G89.29 ; Chronic hepatitis C without hepatic coma B18.2 and Bipolar 1 disorder F31.9 [facility] [address] [facility] [id number] [address] [place] [address] Dec, Attention deficit hyperactiv ity disorder (ADHD), combined type F90.2 [facility] [address] [facility] [id number] [address] [place] [address] Dec, Bipolar disorder, in partial remission, most recent episode hypomanic F31.71 ; Attention deficit hyperactivity disorder (ADHD), combined type F90.2 and Anxiety disorder, unspecified type F41.9 [facility] [address] [facility] [id number] [address] [place] [address] Dec, Bipolar disorder, in partial remission, most recent episode hypomanic F31.71 ; Attention deficit hyperactivity disorder (ADHD), combined type F90.2 and Anxiety disorder, unspecified type F41.9 [facility] [address] [facility] [id number] [address] [place] [address] Dec, Bipolar 1 disorder F31.9 and Attention deficit R41.840 [facility] [address] [facility] [id number] [address] [place] [address] Oct, Other chronic pain G89.29 ; Alopecia L65.9 and Screening, lipid Z13.220 [facility] [address] [facility] [id number] [address] [place] [id number] Oct, [place] [address] [facility] [id number] [address] [place] [phone] Aug, [facility] [address] [facility] [id number] [address] [place] [address] Aug, Eustachian tube dysfunction, right H69.81 ; Vertigo R42 and Other chronic pain G89.29 [facility] [address] [id number] [address] [place] [id number] Aug, [facility] [address] [id number] [address] [place] [phone] Jun, [facility] [address] [id number] [address] [place] [address] Jun, Low back pain M54.5 and Othe r chronic pain G89.29 [facility] [address] [id number] [address] [place] [phone] Jun, [facility] [address] [id number] [address] [place] [phone] May, [facility] [address] [id number] [address] [place] [phone] Jan, [facility] [address] [id number] [address] [place] [phone] Dec, [facility] [address] [id number] [address] [place] [phone] Dec, [facility] [address] [id number] [address] [place] [address] Jun, [facility] [address] [id number] [address] [place] [address] Apr, Eustachian tube dysfunction, unspecified laterality H69.80 ; Hot flashes N95.1 and Encounter for immunization Z23 [facility] [address] [id number] [address] [place] [address] Jan, [facility] [address] [id number] [address] [place] [phone] Jan, [facility] [address] [id number] [address] [place] [address] Jan, [facility] [address] [id number] [address] [place] [address] Jan, [facility] [address] [id number] [address] [place] [address] Jan, Encounter to establish care V65.8 ; Bipolar 1 disorder 296.7 ; Abdominal pain 789.00 ; Constipation 564.00 ; Hard of hearing 389.9 and Drug abuse 305.90 [facility] [address] [id number] [address] [place] [address] Dec, [facility] [address] [id number] [address] [place] [phone] October, [facility] [address] [id number] [address] [place] [address] October, [facility] [address] [id number] [address] [place] [phone] Oct, [facility] [address] [id number] [address] [place] [phone] Oct, [facility] [address] [id number] [address] [place] [phone] Oct, [facility] [address] [id number] [address] [place] [id number] Aug, [facility] [address] [id number] [address] [place] [address] Aug, [facility] [address] [id number] [address] [place] [phone] Aug, [facility] [address] [id number] [address] [place] [phone] Aug, [facility] [address] [id number] [address] [place] [address] Aug, [facility] [address] [id number] [address] [place] [phone] Aug, [facility] [address] [id number] [address] [place] [address], [place] [address] Aug, 2014 [facility] [address] [id number] [address] [place] [address], [place] [address] Aug, 2014 [facility] [address] [id number] [address] [place] [address], [place] [address] Aug, 2014 [facility] [address] [id number] [address] [place] [address], [place] [address] Aug, 2014 [facility] [address] [id number] [address] [place] [address], [place] [address] Aug, 2014 [facility] [address] [id number] [address] [place] [address], [place] [address] Aug, 2014 [facility] [address] [id number] [address] [place] [address], [place] [address] Aug, 2014 [facility] [address] [id number] [address] [place] [address], [place] [address] Aug, 2014 [facility] [address] [id number] [address] [place] [address], [place] [address] Aug, [facility] [address] [id number] [address] [place] [address], [place] [address] Jul, [facility] [address] [id number] [address] [place] [address], [place] [address] Jul, [facility] [address] [id number] [address] [place] [address], [place] [address] Jul, [facility] [address] [id number] [address] [place] [address], [place] [address] Jul, [facility] [address] [id number] [address] [place] [address], [place] [address] Jul, [facility] [address] [id number] [address] [place] [address], [place] [address] Jul, [facility] [address] [id number] [address] [place] [address], [place] [address] Jul, [facility] [address] [id number] [address] [place] [address], [place] [address] Jul, [facility] [address] [id number] [address] [place] [address], [place] [address] Jun, [facility] [address] [id number] [address] [place] [address], [place] [address] Jun, [facility] [address] [id number] [address] [place] [address], [place] [address] Jun, [facility] [address] [id number] [address] [place] [address], [place] [address] Jun, [facility] [address] [id number] [address] [place] [address], [place] [address] Jun, [facility] [address] [id number] [address] [place] [address], [place] [address] Jun, [facility] [address] [id number] [address] [place] [address], [place] [address] Jun, [facility] [address] [id number] [address] [place] [address], [place] [address] Jun, [facility] [address] [id number] [address] [place] [address], [place] [address] Jun, [facility] [address] [id number] [address] [place] [address], [place] [address] Jun, [facility] [address] [id number] [address] [place] [address], [place] [address] Jun, [facility] [address] [id number] [address] [place] [address], [place] [address] May, [facility] [address] [id number] [address] [place] [address], [place] [address] May, [facility] [address] [id number] [address] [place] [address], [place] [address] May, [facility] [address] [id number] [address] [place] [address], [place] [address] May, [facility] [address] [id number] [address] [place] [address], [place] [address] May, [facility] [address] [id number] [address] [place] [address], [place] [address] May, [facility] [address] [id number] [address] [place] [address], [place] [address] May, [facility] [address] [id number] [address] [place] [address], [place] [address] Apr, [facility] [address] [id number] [address] [place] [address], [place] [address] Apr, [facility] [address] [id number] [address] [place] [address], [place] [address] Apr, [facility] [address] [id number] [address] [place] [address], [place] [address] Apr, [facility] [address] [id number] [address] [place] [address], [place] [address] Apr, [facility] [address] [id number] [address] [place] [address], [place] [address] Apr, [facility] [address] [id number] [address] [place] [address], [place] [address] Mar, [facility] [address] [id number] [address] [place] [address], [place] [address] 29 Mar, 2013 [facility] [address] [id number] [address] [place] [address], [place] [address] 10 Mar, 2013 [facility] [address] [id number] [address] [place] [address], [place] [address] 10 Mar, 2013 [facility] [address] [id number] [address] [place] [address], [place] [address] Mar, 2013 [facility] [address] [id number] [address] [place] [address], [place] [address] Mar, [facility] [address] [id number] [address] [place] [address], [place] [address] Jan, [facility] [address] [id number] [address] [place] [address], [place] [address] Jan, [facility] [address] [id number] [address] [place] [address], [place] [address] Jan, [facility] [address] [id number] [address] [place] [address], [place] [address] Jan, [facility] [address] [id number] [address] [place] [address], [place] [address] Dec, [facility] [address] [id number] [address] [place] [address], [place] [address] Dec, [facility] [address] [id number] [address] [place] [address], [place] [address] Dec, [facility] [address] [id number] [address] [place] [address], [place] [address] Dec, [facility] [address] [id number] [address] [place] [address], [place] [address] Dec, [facility] [address] [id number] [address] [place] [address], [place] [address] Dec, [facility] [address] [id number] [address] [place] [address], [place] [address] Dec, [facility] [address] [id number] [address] [place] [address], [place] [address] Dec, [facility] [address] [id number] [address] [place] [address], [place] [address] Dec, [facility] [address] [id number] [address] [place] [address], [place] [address] Dec, [facility] [address] [id number] [address] [place] [address], [place] [address] Dec, [facility] [address] [id number] [address] [place] [address], [place] [address] Dec, [facility] [address] [id number] [address] [place] [address], [place] [address] October, [facility] [address] [id number] [address] [place] [address], [place] [address] October, [facility] [address] [id number] [address] [place] [address], [place] [address] October, [facility] [address] [id number] [address] [place] [address], [place] [address] October, [facility] [address] [id number] [address] [place] [address], [place] [address] October, [facility] [address] [id number] [address] [place] [address], [place] [address] October, [facility] [address] [id number] [address] [place] [address], [place] [address] Oct, [facility] [address] [id number] [address] [place] [address], [place] [address] Oct, [facility] [address] [id number] [address] [place] [address], [place] [address] Oct, [facility] [address] [id number] [address] [place] [address], [place] [address] Oct, [facility] [address] [id number] [address] [place] [address], [place] [address] Oct, [facility] [address] [id number] [address] [place] [address], [place] [address] Oct, [facility] [address] [id number] [address] [place] [address], [place] [address] Oct, [facility] [address] [id number] [address] [place] [address], [place] [address] Oct, [facility] [address] [id number] [address] [place] [address], [place] [address] Oct, [facility] [address] [id number] [facility] [address] 09 Oct, 2013 [facility] [facility] [address] [id number] [facility] [address] Oct, [facility] [address] [id number] [address] [place] [address], [place] [address] Oct, [facility] [address] [id number] [address] [place] [address], [place] [address] Aug, [facility] [address] [id number] [address] [place] [address], [place] [address] Aug, [facility] [address] [id number] [address] [place] [address], [place] [address] Aug, [facility] [address] [id number] [address] [place] [address], [place] [address] Aug, [facility] [address] [id number] [address] [place] [address], [place] [address] Aug, [facility] [address] [id number] [address] [place] [address], [place] [address] 05 Aug, 2013 [facility] [address] [id number] [address] [place] [address], [place] [address] Aug, [facility] [address] [id number] [address] [place] [address], [place] [address] Aug, [facility] [address] [id number] [address] [place] [address], [place] [address] Aug, [facility] [address] [id number] [address] [place] [address], [place] [address] Aug, [facility] [address] [id number] [address] [place] [address], [place] [address] Aug, [facility] [address] [id number] [address] [place] [address], [place] [address] Aug, [facility] [address] [id number] [address] [place] [address], [place] [address] Aug, [facility] [address] [id number] [address] [place] [address], [place] [address] 20 Aug, 2013 [facility] [address] [id number] [address] [place] [address], [place] [address] 14 Aug, 2013 [facility] [address] [id number] [address] [place] [address], [place] [address] 14 Aug, 2013 [facility] [address] [id number] [address] [place] [address], [place] [address] 14 Aug, 2013 [facility] [address] [id number] [address] [place] [address], [place] [address] 14 Aug, 2013 [facility] [address] [id number] [address] [place] [address], [place] [address] 07 Aug, 2013 [facility] [address] [id number] [address] [place] [address], [place] [address] 07 Aug, 2013 [facility] [address] [id number] [address] [place] [address], [place] [address] 06 Aug, 2013 [facility] [address] [id number] [address] [place] [address], [place] [address] 06 Aug, 2013 [facility] [address] [id number] [address] [place] [address], [place] [address] 04 Aug, 2013 [facility] [address] [id number] [address] [place] [address], [place] [address] 04 Aug, 2013 [facility] [address] [id number] [address] [place] [address], [place] [address] Aug, [facility] [address] [id number] [address] [place] [address], [place] [address] Jul, [facility] [address] [id number] [address] [place] [address], [place] [address] Jul, [facility] [address] [id number] [address] [place] [address], [place] [address] Jul, [facility] [address] [id number] [address] [place] [address], [place] [address] Jul, [facility] [address] [id number] [address] [place] [address], [place] [address] Jul, [facility] [address] [id number] [address] [place] [address], [place] [address] Jul, [facility] [address] [id number] [address] [place] [address], [place] [address] Jul, [facility] [address] [id number] [address] [place] [address], [place] [address] Jul, [facility] [address] [id number] [address] [place] [address], [place] [address] Jul, [facility] [address] [id number] [address] [place] [address], [place] [address] Jul, [facility] [address] [id number] [address] [place] [address], [place] [address] Jul, [facility] [address] [id number] [address] [place] [address], [place] [address] Jul, [facility] [address] [id number] [address] [place] [address], [place] [address] Jul, [facility] [address] [id number] [address] [place] [address], [place] [address] Jul, [facility] [address] [id number] [address] [place] [address], [place] [address] Jul, [facility] [address] [id number] [address] [place] [address], [place] [address] Jul, [facility] [address] [id number] [address] [place] [address], [place] [address] Jul, [facility] [address] [id number] [address] [place] [address], [place] [address] Jul, [facility] [address] [id number] [address] [place] [address], [place] [address] Jul, [facility] [address] [id number] [address] [place] [address], [place] [address] Jul, [facility] [address] [id number] [address] [place] [address], [place] [address] Jun, [facility] [address] [id number] [address] [place] [address], [place] [address] Jun, [facility] [address] [id number] [address] [place] [address], [place] [address] Jun, [facility] [address] [id number] [address] [place] [address], [place] [address] Jun, [facility] [address] [id number] [address] [place] [address], [place] [address] Jun, [facility] [address] [id number] [address] [place] [address], [place] [address] Jun, [facility] [address] [id number] [address] [place] [address], [place] [address] Jun, [facility] [address] [id number] [address] [place] [address], [place] [address] Jun, [facility] [address] [id number] [address] [place] [address], [place] [address] Jun, [facility] [address] [id number] [address] [place] [address], [place] [address] Jun, [facility] [address] [id number] [address] [place] [address], [place] [address] Jun, [facility] [address] [id number] [address] [place] [address], [place] [address] Jun, [facility] [address] [id number] [address] [place] [address], [place] [address] Jun, [facility] [address] [id number] [address] [place] [address], [place] [address] Jun, [facility] [address] [id number] [address] [place] [address], [place] [address] 20 Jun, 2013 [facility] [address] [id number] [address] [place] [address], [place] [address] 18 Jun, 2013 [facility] [address] [id number] [address] [place] [address], [place] [address] 18 Jun, 2013 [facility] [address] [id number] [address] [place] [address], [place] [address] 17 Jun, 2013 [facility] [address] [id number] [address] [place] [address], [place] [address] 17 Jun, 2013 [facility] [address] [id number] [address] [place] [address], [place] [address] 13 Jun, 2013 [facility] [address] [id number] [address] [place] [address], [place] [address] 12 Jun, 2013 [facility] [address] [id number] [address] [place] [address], [place] [address] 12 Jun, 2013 [facility] [address] [id number] [address] [place] [address], [place] [address] 09 Jun, 2013 [facility] [address] [id number] [address] [place] [address], [place] [address] 05 Jun, 2013 [facility] [address] [id number] [address] [place] [address], [place] [address] 05 Jun, 2013 [facility] [address] [id number] [address] [place] [address], [place] [address] 04 Jun, 2013 [facility] [address] [id number] [address] [place] [address], [place] [address] 04 Jun, 2013 [facility] [address] [id number] [address] [place] [address], [place] [address] 17 May, 2013 [facility] [address] [id number] [address] [place] [address], [place] [address] 17 May, 2013 [facility] [address] [id number] [address] [place] [address], [place] [address] May, [facility] [address] [id number] [address] [place] [address], [place] [address] May, [facility] [address] [id number] [address] [place] [address], [place] [address] May, [facility] [address] [id number] [address] [place] [address], [place] [address] May, [facility] [address] [id number] [address] [place] [address], [place] [address] Apr, [facility] [address] [id number] [address] [place] [address], [place] [address] Apr, [facility] [address] [id number] [address] [place] [address], [place] [address] Apr, [facility] [address] [id number] [address] [place] [address], [place] [address] Apr, [facility] [address] [id number] [address] [place] [address], [place] [address] Apr, [facility] [address] [id number] [address] [place] [address], [place] [address] Apr, [facility] [address] [id number] [address] [place] [address], [place] [address] Apr, [facility] [address] [id number] [address] [place] [address], [place] [address] Apr, [facility] [address] [id number] [address] [place] [address], [place] [address] 26 Mar, 2013 [facility] [address] [id number] [address] [place] [address], [place] [address] 24 Sep2012 [facility] [address] [id number] [address] [place] [address], [place] [address] 17 Mar, 2013 [facility] [address] [id number] [address] [place] [address], [place] [address] 17 Mar, 2013 [facility] [address] [id number] [address] [place] [address] [place] [address] 11 Mar, 2013 [facility] [address] [id number] [address] [place] [address], [place] [address] 10 Mar, 2013 [facility] [address] [id number] [address] [place] [address], [place] [address] 05 Mar, 2013 [facility] [address] [id number] [address] [place] [address], [place] [address] 04 Mar, 2013 [facility] [address] [id number] [address] [place] [address], [place] [address] 20 Jan, 2013 [facility] [address] [id number] [address] [place] [address], [place] [address] Jan, [facility] [address] [id number] [address] [place] [address], [place] [address] 14 Jan, 2013 [facility] [address] [id number] [address] [place] [address], [place] [address] Jan, [facility] [address] [id number] [address] [place] [address], [place] [address] Jan, [facility] [address] [id number] [address] [place] [address], [place] [address] Jan, [facility] [address] [id number] [address] [place] [address], [place] [address] Dec, [facility] [address] [id number] [address] [place] [address], [place] [address] Dec, [facility] [address] [id number] [address] [place] [address], [place] [address] Dec, [facility] [address] [id number] [address] [place] [address], [place] [address] Dec, [facility] [address] [id number] [address] [place] [address], [place] [address] Dec, [facility] [address] [id number] [address] [place] [address], [place] [address] 17 Dec, 2012 [facility] [address] [id number] [address] [place] [address], [place] [address] 16 Dec, 2012 [facility] [address] [id number] [address] [place] [address], [place] [address] 16 Dec, 2012 [facility] [address] [id number] [address] [place] [address], [place] [address] 15 Dec, 2012 [facility] [address] [id number] [address] [place] [address], [place] [address] 10 Dec, 2012 [facility] [address] [id number] [address] [place] [address], [place] [address] 28 Dec, 2012 [facility] [address] [id number] [address] [place] [address], [place] [address] Dec, [facility] [address] [id number] [address] [place] [address], [place] [address] Dec, [facility] [address] [id number] [address] [place] [address], [place] [address] Dec, [facility] [address] [id number] [address] [place] [address], [place] [address] Dec, [facility] [address] [id number] [address] [place] [address], [place] [address] Dec, [facility] [address] [id number] [address] [place] [address], [place] [address] October, [facility] [address] [id number] [address] [place] [address], [place] [address] October, [facility] [address] [id number] [address] [place] [address], [place] [address] October, [facility] [address] [id number] [address] [place] [address], [place] [address] October, [facility] [address] [id number] [address] [place] [address], [place] [address] October, [facility] [address] [id number] [address] [place] [address], [place] [address] October, [facility] [address] [id number] [address] [place] [address], [place] [address] October, [facility] [address] [id number] [address] [place] [address], [place] [address] Oct, [facility] [address] [id number] [address] [place] [address], [place] [address] Oct, [facility] [address] [id number] [address] [place] [address], [place] [address] Oct, [facility] [address] [id number] [address] [place] [address], [place] [address] Oct, [facility] [address] [id number] [address] [place] [address], [place] [address] Oct, [facility] [address] [id number] [address] [place] [address], [place] [address] Oct, [facility] [address] [id number] [address] [place] [address], [place] [address] Oct, [facility] [address] [id number] [address] [place] [address], [place] [address] 15 Oct, 2012 [facility] [address] [id number] [address] [place] [address], [place] [address] Oct, [facility] [address] [id number] [address] [place] [address], [place] [address] Oct, [facility] [address] [id number] [address] [place] [address], [place] [address] Oct, [facility] [address] [id number] [address] [place] [address], [place] [address] Oct, [facility] [address] [id number] [address] [place] [address], [place] [address] Aug, [facility] [address] [id number] [address] [place] [address], [place] [address] Aug, [facility] [address] [id number] [address] [place] [address], [place] [address] 12 Aug, 2012 [facility] [address] [id number] [address] [place] [address], [place] [address] 06 Aug, 2012 [facility] [address] [id number] [address] [place] [address], [place] [address] 05 Aug, 2012 [facility] [address] [id number] [address] [place] [address], [place] [address] 05 Aug, 2012 [facility] [address] [id number] [address] [place] [address], [place] [address] 20 Aug, 2012 [facility] [address] [id number] [address] [place] [address], [place] [address] 14 Aug, 2012 [facility] [address] [id number] [address] [place] [address], [place] [address] 12 Aug, 2012 [facility] [address] [id number] [address] [place] [address], [place] [address] Aug, [facility] [address] [id number] [address] [place] [address], [place] [address] Jul, [facility] [address] [id number] [address] [place] [address], [place] [address] Jul, [facility] [address] [id number] [address] [place] [address], [place] [address] Jul, [facility] [address] [id number] [address] [place] [address], [place] [address] Jun, [facility] [address] [id number] [address] [place] [address], [place] [address] Jun, [facility] [address] [id number] [address] [place] [address], [place] [address] Jun, [facility] [address] [id number] [address] [place] [address], [place] [address] Jun, [facility] [address] [id number] [address] [place] [address], [place] [address] Jun, [facility] [address] [id number] [address] [place] [address], [place] [address] 14 Jun, 2012 [facility] [address] [id number] [address] [place] [address], [place] [address] 14 Jun, 2012 [facility] [address] [id number] [address] [place] [address], [place] [address] 13 Jun, 2012 [facility] [address] [id number] [address] [place] [address], [place] [address] 13 Jun, 2012 [facility] [address] [id number] [address] [place] [address], [place] [address] 11 Jun, 2012 [facility] [address] [id number] [address] [place] [address], [place] [address] 11 Jun, 2012 [facility] [address] [id number] [address] [place] [address], [place] [address] 11 Jun, 2012 [facility] [address] [id number] [address] [place] [address], [place] [address] 11 Jun, 2012 [facility] [address] [id number] [address] [place] [address], [place] [address] 07 Jun, 2012 [facility] [address] [id number] [address] [place] [address], [place] [address] 07 Jun, 2012 [facility] [address] [id number] [address] [place] [address], [place] [address] 06 Jun, 2012 [facility] [address] [id number] [address] [place] [address], [place] [address] 06 Jun, 2012 [facility] [address] [id number] [address] [place] [address], [place] [address] Jun, [facility] [address] [id number] [address] [place] [address], [place] [address] 06 Jun, 2012 [facility] [address] [id number] [address] [place] [address], [place] [address] 05 Jun, 2012 [facility] [address] [id number] [address] [place] [address], [place] [address] Jun, [facility] [address] [id number] [address] [place] [address], [place] [address] Jun, [facility] [address] [id number] [address] [place] [address], [place] [address] Jun, [facility] [address] [id number] [address] [place] [address], [place] [address] May, [facility] [address] [id number] [address] [place] [address], [place] [address] May, [facility] [address] [id number] [address] [place] [address], [place] [address] May, [facility] [address] [id number] [address] [place] [address], [place] [address] May, [facility] [address] [id number] [address] [place] [address], [place] [address] May, [facility] [address] [id number] [address] [place] [address], [place] [address] May, [facility] [address] [id number] [address] [place] [address], [place] [address] May, [facility] [address] [id number] [address] [place] [address], [place] [address] May, [facility] [address] [id number] [address] [place] [address], [place] [address] Apr, [facility] [address] [id number] [address] [place] [id number] Apr, [facility] [address] [id number] [address] [place] [address], [place] [address] Apr, [facility] [address] [id number] [address] [place] [address], [place] [address] Apr, [facility] [address] [id number] [address] [place] [address] Apr, [facility] [address] [id number] [address] [place] [address], [place] [address] Apr, [facility] [address] [id number] [address] [place] [address], [place] [address] Apr, [facility] [address] [id number] [address] [place] [address], [place] [address] Apr, [facility] [address] [id number] [address] [place] [address], [place] [address] Apr, [facility] [address] [id number] [address] [place] [address], [place] [address] Apr, [facility] [address] [id number] [address] [place] [address], [place] [address] Apr, [facility] [address] [id number] [address] [place] [address], [place] [address] Apr, [facility] [address] [id number] [address] [place] [address], [place] [address] Mar, [facility] [address] [id number] [address] [place] [address], [place] [address] 18 Mar, 2012 [facility] [address] [id number] [address] [place] [id number] Mar, [facility] [address] [id number] [address] [place] [id number] Mar, [facility] [address] [id number] [address] [place] [id number] Mar, [facility] [address] [id number] [address] [place] [id number] Mar, [facility] [address] [id number] [address] [place] [address], [place] [address] Mar, [facility] [address] [id number] [address] [place] [address], [place] [address] Jan, [facility] [address] [id number] [address] [place] [address] [id number] Jan, [facility] [address] [id number] [facility] [id number] Jan, [facility] [address] [id number] [facility] [id number] Jan, [facility] [address] [id number] [address] [place] [address], [place] [address] Jan, [facility] [address] [id number] [address] [place] [address], [place] [address] Jan, [facility] [address] [id number] [address] [place] [address], [place] [address] Jan, [facility] [address] [id number] [address] [place] [address], [place] [address] Jan, [facility] [address] [id number] [address] [place] [address], [place] [address] Jan, [facility] [address] [id number] [address] [place] [address], [place] [address] Jan, [facility] [address] [id number] [address] [place] [address], [place] [address] Jan, [facility] [address] [id number] [address] [place] [address], [place] [address] Dec, [facility] [address] [id number] [address] [place] [address], [place] [address] Dec, [facility] [address] [id number] [address] [place] [address], [place] [address] Dec, [facility] [address] [id number] [address] [place] [address], [place] [address] Dec, [facility] [address] [id number] [address] [place] [address], [place] [address] Dec, [facility] [address] [id number] [address] [place] [address], [place] [address] Dec, [facility] [address] [id number] [address] [place] [address] [place] [address] 18 Jan, 2012 [facility] [address] [id number] [address] [place] [address], [place] [address] 17 Jan, 2012 [facility] [address] [id number] [address] [place] [address], [place] [address] 16 Jan, 2012 [facility] [address] [id number] [address] [place] [address], [place] [address] 13 Jan, 2012 [facility] [address] [id number] [address] [place] [address], [place] [address] 13 Jan, 2012 [facility] [address] [id number] [address] [place] [address], [place] [address] 02 Jan, 2012 [facility] [address] [id number] [address] [place] [address], [place] [address] Dec, [facility] [address] [id number] [address] [place] [address], [place] [address] Dec, [facility] [address] [id number] [address] [place] [address], [place] [address] Dec, [facility] [address] [id number] [address] [place] [address], [place] [address] Dec, [facility] [address] [id number] [address] [place] [address], [place] [address] 15 Dec, 2011 [facility] [address] [id number] [address] [place] [address], [place] [address] Dec, [facility] [address] [id number] [address] [place] [address], [place] [address] Dec, [facility] [address] [id number] [address] [place] [address], [place] [address] October, [facility] [address] [id number] [address] [place] [address], [place] [address] October, [facility] [address] [id number] [address] [place] [address], [place] [address] October, [facility] [address] [id number] [address] [place] [address], [place] [address] October, [facility] [address] [id number] [address] [place] [address], [place] [address] October, [facility] [address] [id number] [address] [place] [address], [place] [address] October, [facility] [address] [id number] [address] [place] [address], [place] [address] Oct, [facility] [address] [id number] [address] [place] [address], [place] [address] 24 Oct, 2011 [facility] [address] [id number] [address] [place] [address], [place] [address] Oct, [facility] [address] [id number] [address] [place] [address], [place] [address] Oct, [facility] [address] [id number] [address] [place] [address], [place] [address] Oct, [facility] [address] [id number] [address] [place] [address], [place] [address] Oct, [facility] [address] [id number] [address] [place] [address], [place] [address] Oct, [facility] [address] [id number] [address] [place] [address], [place] [address] Aug, [facility] [address] [id number] [address] [place] [address], [place] [address] 29 Sep, 2011 [facility] [address] [id number] [address] [place] [address], [place] [address] 19 Sep, 2011 [facility] [address] [id number] [address] [place] [address], [place] [address] 13 Sep, 2011 [facility] [address] [id number] [address] [place] [address], [place] [address] 05 Sep, 2011 [facility] [address] [id number] [address] [place] [address], [place] [address] Aug, [facility] [address] [id number] [address] [place] [address], [place] [address] Aug, [facility] [address] [id number] [address] [place] [address], [place] [address] Aug, [facility] [address] [id number] [address] [place] [address], [place] [address] Aug, [facility] [address] [id number] [address] [place] [address], [place] [address] Jul, [facility] [address] [id number] [address] [place] [address], [place] [address] Jul, [facility] [address] [id number] [address] [place] [address], [place] [address] Jul, [facility] [address] [id number] [address] [place] [address], [place] [address] Jul, [facility] [address] [id number] [address] [place] [address], [place] [address] Jun, [facility] [address] [id number] [address] [place] [address], [place] [address] Jun, [facility] [address] [id number] [address] [place] [address], [place] [address] May, [facility] [address] [id number] [address] [place] [address], [place] [address] May, [facility] [address] [id number] [address] [place] [address], [place] [address] May, [facility] [address] [id number] [address] [place] [address], [place] [address] May, [facility] [address] [id number] [address] [place] [address], [place] [address] 07 May, 2011 [facility] [address] [id number] [address] [place] [address], [place] [address] Apr, [facility] [address] [id number] [address] [place] [address] Apr, [facility] [address] [id number] [address] [place] [address] Apr, [facility] [address] [id number] [address] [place] [phone] Jan, [facility] [address] [id number] [address] [place] [address] Dec, [facility] [address] [id number] [address] [place] [address] October, [facility] [address] [id number] [address] [place] [address] Jun, [facility] [address] [id number] [address] [place] [phone] Apr, [facility] [address] [id number] [address] [place] [address] Apr, [facility] [address] [id number] [address] [place] [phone] Apr, [facility] [address] [id number] [address] [place] [phone] Jun, IMMUNIZATIONS No Known Immunizations SOCIAL HISTORY Never Assessed REASON FOR VISIT [facility] [place] PLAN OF CARE VITAL [...]
--- OUTSIDE RECORDS SUMMARY | 2020-01-25 12:57 | XMS REPORT ---
Author Author Ana Mayer Doctor Organization [facility] Address Unknown Phone Unavailable Care Team Providers Care Green Hide Inspector Name Role Phone Migration, Doctor Unavailable Unavailable PROBLEMS Type Condition ICD9-CM Code CAB20-ED Code Onset Dates Condition S tatus SNOMED Code Problem Attention deficit R41.840 Active 76 128693 Problem Chronic hepatitis C without hepatic coma B18.2 Active 658169265 Problem Cannabis abuse F12.10 Active 28003 009 Problem Bipolar disorder, in partial remission, most rec ent episode hypomanic F31.71 Active 481278788 Problem Attention deficit hyperactivity disorder (ADHD), combi luciano type F90.2 Active 65086120 Problem Bipolar 1 disorder F31.9 Active 3 41219463 Problem H/O laminectomy Z98.89 Active 1616 44536 Problem Other chronic pain G89.29 Active 8 8276669 Problem Anxiety disorder, unspecified type F41.9 Active 304531166 ALLERGIES No Information ENCOUNTERS Encounter Location Date Diagnosis [facility] [address] [facility] [id number] [address] [place] [phone] Oct, [facility] [address] [facility] [id number] [address] [place] [address] Aug, Bipolar disorder, in partial remission, most recent episode hypomanic F31.71 ; Attention deficit hyperactivity disorder (ADHD), combined type F90.2 and Anxiety disorder, unspecified type F41.9 [facility] [address] [facility] [id number] [address] [place] [address] Aug, [facility] [address] [facility] [id number] [address] [place] [address] Aug, Bipolar disorder, in partial remission, most recent episode hypomanic F31.71 [facility] [address] [facility] [id number] [address] [place] [address] Aug, [facility] [address] [id number] [address] [place] [address] Aug, Bipolar disorder, in partial remission, most recent episode hypomanic F31.71 [facility] [address] [id number] [address] [place] [address] Aug, Bipolar disorder, in partial remission, most recent episode hypomanic F31.71 ; Attention deficit hyperactivity disorder (ADHD), combined type F90.2 and Anxiety disorder, unspecified type F41.9 [facility] [address] [id number] [address] [place] [address] Aug, Low back pain M54.5 and Pain in left wrist M25.532 [facility] [address] [id number] [address] [place] [phone] Aug, [facility] [address] [id number] [address] [place] [address] Jun, [facility] [address] [facility] [id number] [address] [place] [address] Apr, Bipolar disorder, in partial remission, most recent episode hypomanic F31.71 [facility] [address] [id number] [address] [place] [address] Apr, [facility] [address] [id number] [address] [place] [address] Apr, Bipolar disorder, in partial remission, most recent episode hypomanic F31.71 ; Attention deficit hyperactivity disorder (ADHD), combined type F90.2 ; Anxiety disorder, unspecified type F41.9 and Other care home (current) 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 Z79.899 [facility] [address] [id number] [address] [place] [address] Apr, Bipolar disorder, in partial remission, most recent episode hypomanic F31.71 [facility] [address] [id number] [address] [place] [address] Apr, Bipolar disorder, in partial remission, most recent episode hypomanic F31.71 [facility] [address] [facility] [id number] [address] [place] [address] Mar, [facility] [address] [id number] [address] [place] [address] Mar, Bipolar disorder, in partial remission, most recent episode hypomanic F31.71 ; Encounter for immunization Z23 and Low back pain M54.5 [facility] [address] [id number] [address] [place] [address] Mar, Bipolar disorder, in partial remission, most recent episode hypomanic F31.71 [facility] [address] [id number] [address] [place] [address] Mar, Bipolar disorder, in partial remission, most recent episode hypomanic F31.71 [facility] [address] [facility] [id number] [address] [place] [phone] Jan, Bipolar disorder, in partial remission, most recent episode hypomanic F31.71 [facility] [address] [facility] [id number] [address] [place] [address] Jan, Bipolar disorder, in partial remission, most recent episode hypomanic F31.71 [facility] [address] [facility] [id number] [address] [place] [address] Dec, Bipolar disorder, in partial remission, most recent episode hypomanic F31.71 [facility] [address] [facility] [id number] [address] [place] [address] Dec, Bipolar disorder, in partial remission, most recent episode hypomanic F31.71 ; Attention deficit hyperactivity disorder (ADHD), combined type F90.2 ; Anxiety disorder, unspecified type F41.9 and Other care home (current) 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 Z79.899 [facility] [address] [facility] [id number] [address] [place] [address] Dec, Bipolar disorder, in partial remission, most recent episode hypomanic F31.71 [facility] [address] [facility] [id number] [address] [place] [address] Dec, Bipolar disorder, in partial remission, most recent episode hypomanic F31.71 [facility] [address] [id number] [address] [place] [address] October, Bipolar disorder, in partial remission, most recent episode hypomanic F31.71 [facility] [address] [id number] [address] [place] [address] October, [facility] [address] [id number] [address] [place] [address] October, [facility] [address] [id number] [address] [place] [address] Oct, Bipolar disorder, in partial remission, most recent episode hypomanic F31.71 ; Attention deficit hyperactivity disorder (ADHD), combined type F90.2 ; Anxiety disorder, unspecified type F41.9 and Encounter for drug screening Z02.83 [facility] [address] [id number] [address] [place] [address] Oct, Bipolar disorder, in partial remission, most recent episode hypomanic F31.71 [facility] [address] [id number] [address] [place] [address] Oct, Bipolar disorder, in partial remission, most recent episode hypomanic F31.71 [facility] [address] [id number] [address] [place] [address] Aug, Bipolar disorder, in partial remission, most recent episode hypomanic F31.71 [facility] [address] [id number] [address] [place] [id number] Aug, Bipolar disorder, in partial remission, most recent episode hypomanic F31.71 [facility] [address] [id number] [address] [place] [address] Aug, Bipolar disorder, in partial remission, most recent episode hypomanic F31.71 [facility] [address] [id number] [address] [place] [address] Jul, Bipolar disorder, in partial remission, most recent episode hypomanic F31.71 ; Attention deficit hyperactivity disorder (ADHD), combined type F90.2 and Anxiety disorder, unspecified type F41.9 [facility] [address] [id number] [address] [place] [address] Jul, Bipolar disorder, in partial remission, most recent episode hypomanic F31.71 [facility] [address] [id number] [address] [place] [address] Jun, Bipolar disorder, in partial remission, most recent episode hypomanic F31.71 [facility] [address] [id number] [address] [place] [address] May, Bipolar disorder, in partial remission, most recent episode hypomanic F31.71 [facility] [address] [facility] [id number] [address] [place] [address] May, Bipolar disorder, in partial remission, most recent episode hypomanic F31.71 [facility] [address] [facility] [id number] [address] [place] [address] Apr, [facility] [address] [id number] [address] [place] [address] Apr, Bipolar disorder, in partial remission, most recent episode hypomanic F31.71 ; Attention deficit hyperactivity disorder (ADHD), combined type F90.2 ; Anxiety disorder, unspecified type F41.9 and Cannabis abuse F12.10 [facility] [address] [id number] [address] [place] [id number] Apr, Attention deficit hyperactiv ity disorder (ADHD), combined type F90.2 [facility] [address] [id number] [address] [place] [address] Mar, Attention deficit hyperactiv ity disorder (ADHD), combined type F90.2 [facility] [address] [facility] [id number] [address] [place] [address] Mar, Anxiety disorder, unspecifie d type F41.9 [facility] [address] [facility] [id number] [address] [place] [address] Jan, Attention deficit hyperactiv ity disorder (ADHD), combined type F90.2 [facility] [address] [facility] [id number] [address] [place] [address] Jan, Anxiety disorder, unspecifie d type F41.9 [facility] [address] [facility] [id number] [address] [place] [address] Jan, Other chronic pain G89.29 ; Chronic hepatitis C without hepatic coma B18.2 and Bipolar 1 disorder F31.9 [facility] [address] [facility] [id number] [address] [place] [phone] Dec, Attention deficit hyperactiv ity disorder (ADHD), combined type F90.2 [facility] [address] [facility] [id number] [address] [place] [address] Dec, Bipolar disorder, in partial remission, most recent episode hypomanic F31.71 ; Attention deficit hyperactivity disorder (ADHD), combined type F90.2 and Anxiety disorder, unspecified type F41.9 [facility] [address] [facility] [id number] [address] [place] [address] Dec, Bipolar disorder, in partial remission, most recent episode hypomanic F31.71 ; Attention deficit hyperactivity disorder (ADHD), combined type F90.2 and Anxiety disorder, unspecified type F41.9 [facility] [address] [facility] [id number] [address] [place] [address] Dec, Bipolar 1 disorder F31.9 and Attention deficit R41.840 [facility] [address] [facility] [id number] [address] [place] [address] Oct, Other chronic pain G89.29 ; Alopecia L65.9 and Screening, lipid Z13.220 [facility] [address] [facility] [id number] [address] [place] [address] Oct, [facility] [address] [facility] [id number] [address] [place] [address] Aug, [facility] [address] [facility] [id number] [address] [place] [address] Aug, Eustachian tube dysfunction, right H69.81 ; Vertigo R42 and Other chronic pain G89.29 [facility] [address] [id number] [address] [place] [address] Aug, [facility] [address] [id number] [address] [place] [address] Jun, [facility] [address] [id number] [address] [place] [address] Jun, Low back pain M54.5 and Othe r chronic pain G89.29 [facility] [address] [id number] [address] [place] [address] Jun, [facility] [address] [id number] [address] [place] [phone] May, [facility] [address] [id number] [address] [place] [address] Jan, [facility] [address] [id number] [address] [place] [address] Dec, [facility] [address] [id number] [address] [place] [address] Dec, [facility] [address] [id number] [address] [place] [phone] Jun, [facility] [address] [id number] [address] [place] [address] Apr, Eustachian tube dysfunction, unspecified laterality H69.80 ; Hot flashes N95.1 and Encounter for immunization Z23 [facility] [address] [id number] [address] [place] [phone] Jan, [facility] [address] [id number] [address] [place] [id number] Jan, [facility] [address] [id number] [address] [place] [address] Jan, [facility] [address] [id number] [address] [place] [phone] Jan, [facility] [address] [id number] [address] [place] [address] Jan, Encounter to establish care V65.8 ; Bipolar 1 disorder 296.7 ; Abdominal pain 789.00 ; Constipation 564.00 ; Hard of hearing 389.9 and Drug abuse 305.90 [facility] [address] [id number] [address] [place] [address] Dec, [facility] [address] [id number] [address] [place] [address] October, [facility] [address] [id number] [address] [place] [address] October, [facility] [address] [id number] [address] [place] [address] Oct, [facility] [address] [id number] [address] [place] [id number] Oct, [facility] [address] [id number] [address] [place] [address] Oct, [facility] [address] [id number] [address] [place] [address] Aug, [facility] [address] [id number] [address] [place] [address] Aug, [facility] [address] [id number] [address] [place] [phone] Aug, [facility] [address] [id number] [address] [place] [phone] Aug, [facility] [address] [id number] [address] [place] [address] Aug, [facility] [address] [id number] [address] [place] [address] Aug, [facility] [address] [id number] [address] [place] [address], [place] [address] Aug, 2014 [facility] [address] [id number] [address] [place] [address], [place] [address] Aug, 2014 [facility] [address] [id number] [address] [place] [address], [place] [address] Aug, 2014 [facility] [address] [id number] [address] [place] [address], [place] [address] Aug, 2014 [facility] [address] [id number] [address] [place] [address], [place] [address] Aug, 2014 [facility] [address] [id number] [address] [place] [address], [place] [address] Aug, 2014 [facility] [address] [id number] [address] [place] [address], [place] [address] Aug, 2014 [facility] [address] [id number] [address] [place] [address], [place] [address] Aug, 2014 [facility] [address] [id number] [address] [place] [address], [place] [address] Aug, [facility] [address] [id number] [address] [place] [address], [place] [address] Jul, [facility] [address] [id number] [address] [place] [address], [place] [address] Jul, [facility] [address] [id number] [address] [place] [address], [place] [address] Jul, [facility] [address] [id number] [address] [place] [address], [place] [address] Jul, [facility] [address] [id number] [address] [place] [address], [place] [address] Jul, [facility] [address] [id number] [address] [place] [address], [place] [address] Jul, [facility] [address] [id number] [address] [place] [address], [place] [address] Jul, [facility] [address] [id number] [address] [place] [address], [place] [address] Jul, [facility] [address] [id number] [address] [place] [address], [place] [address] Jun, [facility] [address] [id number] [address] [place] [address], [place] [address] Jun, [facility] [address] [id number] [address] [place] [address], [place] [address] Jun, [facility] [address] [id number] [address] [place] [address], [place] [address] Jun, [facility] [address] [id number] [address] [place] [address], [place] [address] Jun, [facility] [address] [id number] [address] [place] [address], [place] [address] Jun, [facility] [address] [id number] [address] [place] [address], [place] [address] Jun, [facility] [address] [id number] [address] [place] [address], [place] [address] Jun, [facility] [address] [id number] [address] [place] [address], [place] [address] Jun, [facility] [address] [id number] [address] [place] [address], [place] [address] Jun, [facility] [address] [id number] [address] [place] [address], [place] [address] Jun, [facility] [address] [id number] [address] [place] [address], [place] [address] May, [facility] [address] [id number] [address] [place] [address], [place] [address] May, [facility] [address] [id number] [address] [place] [address], [place] [address] May, [facility] [address] [id number] [address] [place] [address], [place] [address] May, [facility] [address] [id number] [address] [place] [address], [place] [address] May, [facility] [address] [id number] [address] [place] [address], [place] [address] May, [facility] [address] [id number] [address] [place] [address], [place] [address] May, [facility] [address] [id number] [address] [place] [address], [place] [address] Apr, [facility] [address] [id number] [address] [place] [address], [place] [address] Apr, [facility] [address] [id number] [address] [place] [address], [place] [address] Apr, [facility] [address] [id number] [address] [place] [address], [place] [address] Apr, [facility] [address] [id number] [address] [place] [address], [place] [address] Apr, [facility] [address] [id number] [address] [place] [address], [place] [address] Apr, [facility] [address] [id number] [address] [place] [address], [place] [address] Mar, [facility] [address] [id number] [address] [place] [address], [place] [address] 29 Mar, 2013 [facility] [address] [id number] [address] [place] [address], [place] [address] 10 Mar, 2013 [facility] [address] [id number] [address] [place] [address], [place] [address] 10 Mar, 2013 [facility] [address] [id number] [address] [place] [address], [place] [address] Mar, 2013 [facility] [address] [id number] [address] [place] [address], [place] [address] Mar, [facility] [address] [id number] [address] [place] [address], [place] [address] Jan, [facility] [address] [id number] [address] [place] [address], [place] [address] Jan, [facility] [address] [id number] [address] [place] [address], [place] [address] Jan, [facility] [address] [id number] [address] [place] [address], [place] [address] Jan, [facility] [address] [id number] [address] [place] [address], [place] [address] Dec, [facility] [address] [id number] [address] [place] [address], [place] [address] Dec, [facility] [address] [id number] [address] [place] [address], [place] [address] Dec, [facility] [address] [id number] [address] [place] [address], [place] [address] Dec, [facility] [address] [id number] [address] [place] [address], [place] [address] Dec, [facility] [address] [id number] [address] [place] [address], [place] [address] Dec, [facility] [address] [id number] [address] [place] [address], [place] [address] Dec, [facility] [address] [id number] [address] [place] [address], [place] [address] Dec, [facility] [address] [id number] [address] [place] [address], [place] [address] Dec, [facility] [address] [id number] [address] [place] [address], [place] [address] Dec, [facility] [address] [id number] [address] [place] [address], [place] [address] Dec, [facility] [address] [id number] [address] [place] [address], [place] [address] Dec, [facility] [address] [id number] [address] [place] [address], [place] [address] October, [facility] [address] [id number] [address] [place] [address], [place] [address] October, [facility] [address] [id number] [address] [place] [address], [place] [address] October, [facility] [address] [id number] [address] [place] [address], [place] [address] October, [facility] [address] [id number] [address] [place] [address], [place] [address] October, [facility] [address] [id number] [address] [place] [address], [place] [address] October, [facility] [address] [id number] [address] [place] [address], [place] [address] Oct, [facility] [address] [id number] [address] [place] [address], [place] [address] Oct, [facility] [address] [id number] [address] [place] [address], [place] [address] Oct, [facility] [address] [id number] [address] [place] [address], [place] [address] Oct, [facility] [address] [id number] [address] [place] [address], [place] [address] Oct, [facility] [address] [id number] [address] [place] [address], [place] [address] Oct, [facility] [address] [id number] [address] [place] [address], [place] [address] Oct, [facility] [address] [id number] [address] [place] [address], [place] [address] Oct, [facility] [address] [id number] [address] [place] [address], [place] [address] Oct, [facility] [address] [id number] [address] [place] [address] 09 Oct, 2013 [facility] [address] [id number] [facility] [place] [address] Oct, [facility] [address] [id number] [address] [place] [address], [place] [address] Oct, [facility] [address] [id number] [address] [place] [address], [place] [address] Aug, [facility] [address] [id number] [address] [place] [address], [place] [address] Aug, [facility] [address] [id number] [address] [place] [address], [place] [address] Aug, [facility] [address] [id number] [address] [place] [address], [place] [address] Aug, [facility] [address] [id number] [address] [place] [address], [place] [address] Aug, [facility] [address] [id number] [address] [place] [address], [place] [address] 05 Aug, 2013 [facility] [address] [id number] [address] [place] [address], [place] [address] Aug, [facility] [address] [id number] [address] [place] [address], [place] [address] Aug, [facility] [address] [id number] [address] [place] [address], [place] [address] Aug, [facility] [address] [id number] [address] [place] [address], [place] [address] Aug, [facility] [address] [id number] [address] [place] [address], [place] [address] Aug, [facility] [address] [id number] [address] [place] [address], [place] [address] Aug, [facility] [address] [id number] [address] [place] [address], [place] [address] Aug, [facility] [address] [id number] [address] [place] [address], [place] [address] 20 Aug, 2013 [facility] [address] [id number] [address] [place] [address], [place] [address] 14 Aug, 2013 [facility] [address] [id number] [address] [place] [address], [place] [address] 14 Aug, 2013 [facility] [address] [id number] [address] [place] [address], [place] [address] 14 Aug, 2013 [facility] [address] [id number] [address] [place] [address], [place] [address] 14 Aug, 2013 [facility] [address] [id number] [address] [place] [address], [place] [address] 07 Aug, 2013 [facility] [address] [id number] [address] [place] [address], [place] [address] 07 Aug, 2013 [facility] [address] [id number] [address] [place] [address], [place] [address] 06 Aug, 2013 [facility] [address] [id number] [address] [place] [address], [place] [address] 06 Aug, 2013 [facility] [address] [id number] [address] [place] [address], [place] [address] 04 Aug, 2013 [facility] [address] [id number] [address] [place] [address], [place] [address] 04 Aug, 2013 [facility] [address] [id number] [address] [place] [address], [place] [address] Aug, [facility] [address] [id number] [address] [place] [address], [place] [address] Jul, [facility] [address] [id number] [address] [place] [address], [place] [address] Jul, [facility] [address] [id number] [address] [place] [address], [place] [address] Jul, [facility] [address] [id number] [address] [place] [address], [place] [address] Jul, [facility] [address] [id number] [address] [place] [address], [place] [address] Jul, [facility] [address] [id number] [address] [place] [address], [place] [address] Jul, [facility] [address] [id number] [address] [place] [address], [place] [address] Jul, [facility] [address] [id number] [address] [place] [address], [place] [address] Jul, [facility] [address] [id number] [address] [place] [address], [place] [address] Jul, [facility] [address] [id number] [address] [place] [address], [place] [address] Jul, [facility] [address] [id number] [address] [place] [address], [place] [address] Jul, [facility] [address] [id number] [address] [place] [address], [place] [address] Jul, [facility] [address] [id number] [address] [place] [address], [place] [address] Jul, [facility] [address] [id number] [address] [place] [address], [place] [address] Jul, [facility] [address] [id number] [address] [place] [address], [place] [address] Jul, [facility] [address] [id number] [address] [place] [address], [place] [address] Jul, [facility] [address] [id number] [address] [place] [address], [place] [address] Jul, [facility] [address] [id number] [address] [place] [address], [place] [address] Jul, [facility] [address] [id number] [address] [place] [address], [place] [address] Jul, [facility] [address] [id number] [address] [place] [address], [place] [address] Jul, [facility] [address] [id number] [address] [place] [address], [place] [address] Jun, [facility] [address] [id number] [address] [place] [address], [place] [address] Jun, [facility] [address] [id number] [address] [place] [address], [place] [address] Jun, [facility] [address] [id number] [address] [place] [address], [place] [address] Jun, [facility] [address] [id number] [address] [place] [address], [place] [address] Jun, [facility] [address] [id number] [address] [place] [address], [place] [address] Jun, [facility] [address] [id number] [address] [place] [address], [place] [address] Jun, [facility] [address] [id number] [address] [place] [address], [place] [address] Jun, [facility] [address] [id number] [address] [place] [address], [place] [address] Jun, [facility] [address] [id number] [address] [place] [address], [place] [address] Jun, [facility] [address] [id number] [address] [place] [address], [place] [address] Jun, [facility] [address] [id number] [address] [place] [address], [place] [address] Jun, [facility] [address] [id number] [address] [place] [address], [place] [address] Jun, [facility] [address] [id number] [address] [place] [address], [place] [address] Jun, [facility] [address] [id number] [address] [place] [address], [place] [address] 20 Jun, 2013 [facility] [address] [id number] [address] [place] [address], [place] [address] 18 Jun, 2013 [facility] [address] [id number] [address] [place] [address], [place] [address] 18 Jun, 2013 [facility] [address] [id number] [address] [place] [address], [place] [address] 17 Jun, 2013 [facility] [address] [id number] [address] [place] [address], [place] [address] 17 Jun, 2013 [facility] [address] [id number] [address] [place] [address], [place] [address] 13 Jun, 2013 [facility] [address] [id number] [address] [place] [address], [place] [address] 12 Jun, 2013 [facility] [address] [id number] [address] [place] [address], [place] [address] 12 Jun, 2013 [facility] [address] [id number] [address] [place] [address], [place] [address] 09 Jun, 2013 [facility] [address] [id number] [address] [place] [address], [place] [address] 05 Jun, 2013 [facility] [address] [id number] [address] [place] [address], [place] [address] 05 Jun, 2013 [facility] [address] [id number] [address] [place] [address], [place] [address] 04 Jun, 2013 [facility] [address] [id number] [address] [place] [address], [place] [address] 04 Jun, 2013 [facility] [address] [id number] [address] [place] [address], [place] [address] 17 May, 2013 [facility] [address] [id number] [address] [place] [address], [place] [address] 17 May, 2013 [facility] [address] [id number] [address] [place] [address], [place] [address] May, [facility] [address] [id number] [address] [place] [address], [place] [address] May, [facility] [address] [id number] [address] [place] [address], [place] [address] May, [facility] [address] [id number] [address] [place] [address], [place] [address] May, [facility] [address] [id number] [address] [place] [address], [place] [address] Apr, [facility] [address] [id number] [address] [place] [address], [place] [address] Apr, [facility] [address] [id number] [address] [place] [address], [place] [address] Apr, [facility] [address] [id number] [address] [place] [address], [place] [address] Apr, [facility] [address] [id number] [address] [place] [address], [place] [address] Apr, [facility] [address] [id number] [address] [place] [address], [place] [address] Apr, [facility] [address] [id number] [address] [place] [address], [place] [address] Apr, [facility] [address] [id number] [address] [place] [address], [place] [address] Apr, [facility] [address] [id number] [address] [place] [address], [place] [address] 26 Mar, 2013 [facility] [address] [id number] [address] [place] [address], [place] [address] 24 Sep2012 [facility] [address] [id number] [address] [place] [address], [place] [address] 17 Mar, 2013 [facility] [address] [id number] [address] [place] [address], [place] [address] 17 Mar, 2013 [facility] [address] [id number] [address] [place] [address] [place] [address] 11 Mar, 2013 [facility] [address] [id number] [address] [place] [address], [place] [address] 10 Mar, 2013 [facility] [address] [id number] [address] [place] [address], [place] [address] 05 Mar, 2013 [facility] [address] [id number] [address] [place] [address], [place] [address] 04 Mar, 2013 [facility] [address] [id number] [address] [place] [address], [place] [address] 20 Jan, 2013 [facility] [address] [id number] [address] [place] [address], [place] [address] Jan, [facility] [address] [id number] [address] [place] [address], [place] [address] 14 Jan, 2013 [facility] [address] [id number] [address] [place] [address], [place] [address] Jan, [facility] [address] [id number] [address] [place] [address], [place] [address] Jan, [facility] [address] [id number] [address] [place] [address], [place] [address] Jan, [facility] [address] [id number] [address] [place] [address], [place] [address] Dec, [facility] [address] [id number] [address] [place] [address], [place] [address] Dec, [facility] [address] [id number] [address] [place] [address], [place] [address] Dec, [facility] [address] [id number] [address] [place] [address], [place] [address] Dec, [facility] [address] [id number] [address] [place] [address], [place] [address] Dec, [facility] [address] [id number] [address] [place] [address], [place] [address] 17 Dec, 2012 [facility] [address] [id number] [address] [place] [address], [place] [address] 16 Dec, 2012 [facility] [address] [id number] [address] [place] [address], [place] [address] 16 Dec, 2012 [facility] [address] [id number] [address] [place] [address], [place] [address] 15 Dec, 2012 [facility] [address] [id number] [address] [place] [address], [place] [address] 10 Dec, 2012 [facility] [address] [id number] [address] [place] [address], [place] [address] 28 Dec, 2012 [facility] [address] [id number] [address] [place] [address], [place] [address] Dec, [facility] [address] [id number] [address] [place] [address], [place] [address] Dec, [facility] [address] [id number] [address] [place] [address], [place] [address] Dec, [facility] [address] [id number] [address] [place] [address], [place] [address] Dec, [facility] [address] [id number] [address] [place] [address], [place] [address] Dec, [facility] [address] [id number] [address] [place] [address], [place] [address] October, [facility] [address] [id number] [address] [place] [address], [place] [address] October, [facility] [address] [id number] [address] [place] [address], [place] [address] October, [facility] [address] [id number] [address] [place] [address], [place] [address] October, [facility] [address] [id number] [address] [place] [address], [place] [address] October, [facility] [address] [id number] [address] [place] [address], [place] [address] October, [facility] [address] [id number] [address] [place] [address], [place] [address] October, [facility] [address] [id number] [address] [place] [address], [place] [address] Oct, [facility] [address] [id number] [address] [place] [address], [place] [address] Oct, [facility] [address] [id number] [address] [place] [address], [place] [address] Oct, [facility] [address] [id number] [address] [place] [address], [place] [address] Oct, [facility] [address] [id number] [address] [place] [address], [place] [address] Oct, [facility] [address] [id number] [address] [place] [address], [place] [address] Oct, [facility] [address] [id number] [address] [place] [address], [place] [address] Oct, [facility] [address] [id number] [address] [place] [address], [place] [address] 15 Oct, 2012 [facility] [address] [id number] [address] [place] [address], [place] [address] Oct, [facility] [address] [id number] [address] [place] [address], [place] [address] Oct, [facility] [address] [id number] [address] [place] [address], [place] [address] Oct, [facility] [address] [id number] [address] [place] [address], [place] [address] Oct, [facility] [address] [id number] [address] [place] [address], [place] [address] Aug, [facility] [address] [id number] [address] [place] [address], [place] [address] Aug, [facility] [address] [id number] [address] [place] [address], [place] [address] 12 Aug, 2012 [facility] [address] [id number] [address] [place] [address], [place] [address] 06 Aug, 2012 [facility] [address] [id number] [address] [place] [address], [place] [address] 05 Aug, 2012 [facility] [address] [id number] [address] [place] [address], [place] [address] 05 Aug, 2012 [facility] [address] [id number] [address] [place] [address], [place] [address] 20 Aug, 2012 [facility] [address] [id number] [address] [place] [address], [place] [address] 14 Aug, 2012 [facility] [address] [id number] [address] [place] [address], [place] [address] 12 Aug, 2012 [facility] [address] [id number] [address] [place] [address], [place] [address] Aug, [facility] [address] [id number] [address] [place] [address], [place] [address] Jul, [facility] [address] [id number] [address] [place] [address], [place] [address] Jul, [facility] [address] [id number] [address] [place] [address], [place] [address] Jul, [facility] [address] [id number] [address] [place] [address], [place] [address] Jun, [facility] [address] [id number] [address] [place] [address], [place] [address] Jun, [facility] [address] [id number] [address] [place] [address], [place] [address] Jun, [facility] [address] [id number] [address] [place] [address], [place] [address] Jun, [facility] [address] [id number] [address] [place] [address], [place] [address] Jun, [facility] [address] [id number] [address] [place] [address], [place] [address] 14 Jun, 2012 [facility] [address] [id number] [address] [place] [address], [place] [address] 14 Jun, 2012 [facility] [address] [id number] [address] [place] [address], [place] [address] 13 Jun, 2012 [facility] [address] [id number] [address] [place] [address], [place] [address] 13 Jun, 2012 [facility] [address] [id number] [address] [place] [address], [place] [address] 11 Jun, 2012 [facility] [address] [id number] [address] [place] [address], [place] [address] 11 Jun, 2012 [facility] [address] [id number] [address] [place] [address], [place] [address] 11 Jun, 2012 [facility] [address] [id number] [address] [place] [address], [place] [address] 11 Jun, 2012 [facility] [address] [id number] [address] [place] [address], [place] [address] 07 Jun, 2012 [facility] [address] [id number] [address] [place] [address], [place] [address] 07 Jun, 2012 [facility] [address] [id number] [address] [place] [address], [place] [address] 06 Jun, 2012 [facility] [address] [id number] [address] [place] [address], [place] [address] 06 Jun, 2012 [facility] [address] [id number] [address] [place] [address], [place] [address] Jun, [facility] [address] [id number] [address] [place] [address], [place] [address] 06 Jun, 2012 [facility] [address] [id number] [address] [place] [address], [place] [address] 05 Jun, 2012 [facility] [address] [id number] [address] [place] [address], [place] [address] Jun, [facility] [address] [id number] [address] [place] [address], [place] [address] Jun, [facility] [address] [id number] [address] [place] [address], [place] [address] Jun, [facility] [address] [id number] [address] [place] [address], [place] [address] May, [facility] [address] [id number] [address] [place] [address], [place] [address] May, [facility] [address] [id number] [address] [place] [address], [place] [address] May, [facility] [address] [id number] [address] [place] [address], [place] [address] May, [facility] [address] [id number] [address] [place] [address], [place] [address] May, [facility] [address] [id number] [address] [place] [address], [place] [address] May, [facility] [address] [id number] [address] [place] [address], [place] [address] May, [facility] [address] [id number] [address] [place] [address], [place] [address] May, [facility] [address] [id number] [address] [place] [address], [place] [address] Apr, [facility] [address] [id number] [address] [place] [address] Apr, [facility] [address] [id number] [address] [place] [address], [place] [address] Apr, [facility] [address] [id number] [address] [place] [address], [place] [address] Apr, [facility] [address] [id number] [address] [place] [address] Apr, [facility] [address] [id number] [address] [place] [address], [place] [address] Apr, [facility] [address] [id number] [address] [place] [address], [place] [address] Apr, [facility] [address] [id number] [address] [place] [address], [place] [address] Apr, [facility] [address] [id number] [address] [place] [address], [place] [address] Apr, [facility] [address] [id number] [address] [place] [address], [place] [address] Apr, [facility] [address] [id number] [address] [place] [address], [place] [address] Apr, [facility] [address] [id number] [address] [place] [address], [place] [address] Apr, [facility] [address] [id number] [address] [place] [address], [place] [address] Mar, [facility] [address] [id number] [address] [place] [address], [place] [address] 18 Mar, 2012 [facility] [address] [id number] [address] [place] [address] Mar, [facility] [address] [id number] [address] [place] [address] Mar, [facility] [address] [id number] [address] [place] [id number] Mar, [facility] [address] [id number] [address] [place] [id number] Mar, [facility] [address] [id number] [address] [place] [address], [place] [address] Mar, [facility] [address] [id number] [address] [place] [address], [place] [address] Jan, [facility] [address] [id number] [address] [place] [address] Jan, [facility] [address] [id number] [facility] [id number] Jan, [facility] [address] [address] [id number] [facility], [place] [id number] Jan, [facility] [address] [id number] [address] [place] [address], [place] [address] Jan, [facility] [address] [id number] [address] [place] [address], [place] [address] Jan, [facility] [address] [id number] [address] [place] [address], [place] [address] Jan, [facility] [address] [id number] [address] [place] [address], [place] [address] Jan, [facility] [address] [id number] [address] [place] [address], [place] [address] Jan, [facility] [address] [id number] [address] [place] [address], [place] [address] Jan, [facility] [address] [id number] [address] [place] [address], [place] [address] Jan, [facility] [address] [id number] [address] [place] [address], [place] [address] Dec, [facility] [address] [id number] [address] [place] [address], [place] [address] Dec, [facility] [address] [id number] [address] [place] [address], [place] [address] Dec, [facility] [address] [id number] [address] [place] [address], [place] [address] Dec, [facility] [address] [id number] [address] [place] [address], [place] [address] Dec, [facility] [address] [id number] [address] [place] [address], [place] [address] Dec, [facility] [address] [id number] [address] [place] [address] [place] [address] 18 Jan, 2012 [facility] [address] [id number] [address] [place] [address], [place] [address] 17 Jan, 2012 [facility] [address] [id number] [address] [place] [address], [place] [address] 16 Jan, 2012 [facility] [address] [id number] [address] [place] [address], [place] [address] 13 Jan, 2012 [facility] [address] [id number] [address] [place] [address], [place] [address] 13 Jan, 2012 [facility] [address] [id number] [address] [place] [address], [place] [address] 02 Jan, 2012 [facility] [address] [id number] [address] [place] [address], [place] [address] Dec, [facility] [address] [id number] [address] [place] [address], [place] [address] Dec, [facility] [address] [id number] [address] [place] [address], [place] [address] Dec, [facility] [address] [id number] [address] [place] [address], [place] [address] Dec, [facility] [address] [id number] [address] [place] [address], [place] [address] 15 Dec, 2011 [facility] [address] [id number] [address] [place] [address], [place] [address] Dec, [facility] [address] [id number] [address] [place] [address], [place] [address] Dec, [facility] [address] [id number] [address] [place] [address], [place] [address] October, [facility] [address] [id number] [address] [place] [address], [place] [address] October, [facility] [address] [id number] [address] [place] [address], [place] [address] October, [facility] [address] [id number] [address] [place] [address], [place] [address] October, [facility] [address] [id number] [address] [place] [address], [place] [address] October, [facility] [address] [id number] [address] [place] [address], [place] [address] October, [facility] [address] [id number] [address] [place] [address], [place] [address] Oct, [facility] [address] [id number] [address] [place] [address], [place] [address] 24 Oct, 2011 [facility] [address] [id number] [address] [place] [address], [place] [address] Oct, [facility] [address] [id number] [address] [place] [address], [place] [address] Oct, [facility] [address] [id number] [address] [place] [address], [place] [address] Oct, [facility] [address] [id number] [address] [place] [address], [place] [address] Oct, [facility] [address] [id number] [address] [place] [address], [place] [address] Oct, [facility] [address] [id number] [address] [place] [address], [place] [address] Aug, [facility] [address] [id number] [address] [place] [address], [place] [address] 29 Sep, 2011 [facility] [address] [id number] [address] [place] [address], [place] [address] 19 Sep, 2011 [facility] [address] [id number] [address] [place] [address], [place] [address] 13 Sep, 2011 [facility] [address] [id number] [address] [place] [address], [place] [address] 05 Sep, 2011 [facility] [address] [id number] [address] [place] [address], [place] [address] Aug, [facility] [address] [id number] [address] [place] [address], [place] [address] Aug, [facility] [address] [id number] [address] [place] [address], [place] [address] Aug, [facility] [address] [id number] [address] [place] [address], [place] [address] Aug, [facility] [address] [id number] [address] [place] [address], [place] [address] Jul, [facility] [address] [id number] [address] [place] [address], [place] [address] Jul, [facility] [address] [id number] [address] [place] [address], [place] [address] Jul, [facility] [address] [id number] [address] [place] [address], [place] [address] Jul, [facility] [address] [id number] [address] [place] [address], [place] [address] Jun, [facility] [address] [id number] [address] [place] [address], [place] [address] Jun, [facility] [address] [id number] [address] [place] [address], [place] [address] May, [facility] [address] [id number] [address] [place] [address], [place] [address] May, [facility] [address] [id number] [address] [place] [address], [place] [address] May, [facility] [address] [id number] [address] [place] [address], [place] [address] May, [facility] [address] [id number] [address] [place] [address], [place] [address] 07 May, 2011 [facility] [address] [id number] [address] [place] [address], [place] [address] Apr, [facility] [address] [id number] [address] [place] [address] Apr, [facility] [address] [id number] [address] [place] [address] Apr, [facility] [address] [id number] [address] [place] [address] Jan, [facility] [address] [id number] [address] [place] [address] Dec, [facility] [address] [id number] [address] [place] [address] October, [facility] [address] [id number] [address] [place] [address] Jun, [facility] [address] [id number] [address] [place] [address] Apr, [facility] [address] [id number] [address] [place] [address] Apr, [facility] [address] [id number] [address] [place] [address] Apr, [facility] [address] [id number] [address] [place] [address] Jun, IMMUNIZATIONS No Known Immunizations SOCIAL HISTORY Never Assessed REASON FOR VISIT [facility] PLAN OF CARE VITAL [...]
--- OUTSIDE RECORDS SUMMARY | 2020-01-25 12:58 | XMS REPORT ---
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 Name Role Phone Migration, Doctor Unavailable Unavailable PROBLEMS Type Condition ICD9-CM Code [id number] Code Onset Dates Condition S tatus SNOMED Code Problem Attention deficit R41.840 Active 76 318282 Problem Chronic hepatitis C without hepatic coma B18.2 Active 468744871 Problem Cannabis abuse F12.10 Active 65814 009 Problem Bipolar disorder, in partial remission, most rec ent episode hypomanic F31.71 Active 219331151 Problem Attention deficit hyperactivity disorder (ADHD), combi luciano type F90.2 Active 76710395 Problem Bipolar 1 disorder F31.9 Active 3 98875809 Problem H/O laminectomy Z98.89 Active 1616 56517 Problem Other chronic pain G89.29 Active 8 1314878 Problem Anxiety disorder, unspecified type F41.9 Active 897991610 ALLERGIES No Information ENCOUNTERS Encounter Location Date Diagnosis [facility] [address] [facility] [id number] [address] [place] [id number] Oct, [facility] [address] [facility] [id number] [address] [place] [address] Aug, Bipolar disorder, in partial remission, most recent episode hypomanic F31.71 ; Attention deficit hyperactivity disorder (ADHD), combined type F90.2 and Anxiety disorder, unspecified type F41.9 [facility] [address] [facility] [id number] [address] [place] [phone] Aug, [facility] [address] [facility] [id number] [address] [place] [address] Aug, Bipolar disorder, in partial remission, most recent episode hypomanic F31.71 [facility] [address] [facility] [id number] [address] [place] [address] Aug, [facility] [address] [id number] [address] [place] [address] Aug, Bipolar disorder, in partial remission, most recent episode hypomanic F31.71 [facility] [address] [id number] [address] [place] [address] Aug, Bipolar disorder, in partial remission, most recent episode hypomanic F31.71 ; Attention deficit hyperactivity disorder (ADHD), combined type F90.2 and Anxiety disorder, unspecified type F41.9 [facility] [address] [id number] [address] [place] [address] Aug, Low back pain M54.5 and Pain in left wrist M25.532 [facility] [address] [id number] [address] [place] [address] Aug, [facility] [address] [id number] [address] [place] [id number] Jun, [facility] [address] [facility] [id number] [address] [place] [address] Apr, Bipolar disorder, in partial remission, most recent episode hypomanic F31.71 [facility] [address] [id number] [address] [place] [address] Apr, [facility] [address] [id number] [address] [place] [address] Apr, Bipolar disorder, in partial remission, most recent episode hypomanic F31.71 ; Attention deficit hyperactivity disorder (ADHD), combined type F90.2 ; Anxiety disorder, unspecified type F41.9 and Other long-term (current) 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 Z79.899 [facility] [address] [id number] [address] [place] [address] Apr, Bipolar disorder, in partial remission, most recent episode hypomanic F31.71 [facility] [address] [id number] [address] [place] [address] Apr, Bipolar disorder, in partial remission, most recent episode hypomanic F31.71 [facility] [address] [facility] [id number] [address] [place] [address] Mar, [facility] [address] [id number] [address] [place] [address] Mar, Bipolar disorder, in partial remission, most recent episode hypomanic F31.71 ; Encounter for immunization Z23 and Low back pain M54.5 [facility] [address] [id number] [address] [place] [address] Mar, Bipolar disorder, in partial remission, most recent episode hypomanic F31.71 [facility] [address] [id number] [address] [place] [address] Mar, Bipolar disorder, in partial remission, most recent episode hypomanic F31.71 [facility] [address] [facility] [id number] [address] [place] [address] Jan, Bipolar disorder, in partial remission, most recent episode hypomanic F31.71 [facility] [address] [facility] [id number] [address] [place] [address] Jan, Bipolar disorder, in partial remission, most recent episode hypomanic F31.71 [facility] [address] [facility] [id number] [address] [place] [address] Dec, Bipolar disorder, in partial remission, most recent episode hypomanic F31.71 [facility] [address] [facility] [id number] [address] [place] [address] Dec, Bipolar disorder, in partial remission, most recent episode hypomanic F31.71 ; Attention deficit hyperactivity disorder (ADHD), combined type F90.2 ; Anxiety disorder, unspecified type F41.9 and Other long-term (current) 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 Z79.899 [facility] [address] [facility] [id number] [address] [place] [address] Dec, Bipolar disorder, in partial remission, most recent episode hypomanic F31.71 [facility] [address] [facility] [id number] [address] [place] [address] Dec, Bipolar disorder, in partial remission, most recent episode hypomanic F31.71 [facility] [address] [id number] [address] [place] [id number] October, Bipolar disorder, in partial remission, most recent episode hypomanic F31.71 [facility] [address] [id number] [address] [place] [address] October, [facility] [address] [id number] [address] [place] [address] October, [facility] [address] [id number] [address] [place] [address] Oct, Bipolar disorder, in partial remission, most recent episode hypomanic F31.71 ; Attention deficit hyperactivity disorder (ADHD), combined type F90.2 ; Anxiety disorder, unspecified type F41.9 and Encounter for drug screening Z02.83 [facility] [address] [id number] [address] [place] [phone] Oct, Bipolar disorder, in partial remission, most recent episode hypomanic F31.71 [facility] [address] [id number] [address] [place] [address] Oct, Bipolar disorder, in partial remission, most recent episode hypomanic F31.71 [facility] [address] [id number] [address] [place] [address] Aug, Bipolar disorder, in partial remission, most recent episode hypomanic F31.71 [facility] [address] [id number] [address] [place] [address] Aug, Bipolar disorder, in partial remission, most recent episode hypomanic F31.71 [facility] [address] [id number] [address] [place] [address] Aug, Bipolar disorder, in partial remission, most recent episode hypomanic F31.71 [facility] [address] [id number] [address] [place] [address] Jul, Bipolar disorder, in partial remission, most recent episode hypomanic F31.71 ; Attention deficit hyperactivity disorder (ADHD), combined type F90.2 and Anxiety disorder, unspecified type F41.9 [facility] [address] [id number] [address] [place] [address] Jul, Bipolar disorder, in partial remission, most recent episode hypomanic F31.71 [facility] [address] [id number] [address] [place] [address] Jun, Bipolar disorder, in partial remission, most recent episode hypomanic F31.71 [facility] [address] [id number] [address] [place] [address] May, Bipolar disorder, in partial remission, most recent episode hypomanic F31.71 [facility] [address] [facility] [id number] [address] [place] [address] May, Bipolar disorder, in partial remission, most recent episode hypomanic F31.71 [facility] [address] [facility] [id number] [address] [place] [id number] Apr, [facility] [address] [id number] [address] [place] [address] Apr, Bipolar disorder, in partial remission, most recent episode hypomanic F31.71 ; Attention deficit hyperactivity disorder (ADHD), combined type F90.2 ; Anxiety disorder, unspecified type F41.9 and Cannabis abuse F12.10 [facility] [address] [id number] [address] [place] [address] Apr, Attention deficit hyperactiv ity disorder (ADHD), combined type F90.2 [facility] [address] [id number] [address] [place] [address] Mar, Attention deficit hyperactiv ity disorder (ADHD), combined type F90.2 [facility] [address] [facility] [id number] [address] [place] [address] Mar, Anxiety disorder, unspecifie d type F41.9 [facility] [address] [facility] [id number] [address] [place] [id number] Jan, Attention deficit hyperactiv ity disorder (ADHD), combined type F90.2 [facility] [address] [facility] [id number] [address] [place] [address] Jan, Anxiety disorder, unspecifie d type F41.9 [facility] [address] [facility] [id number] [address] [place] [address] Jan, Other chronic pain G89.29 ; Chronic hepatitis C without hepatic coma B18.2 and Bipolar 1 disorder F31.9 [facility] [address] [facility] [id number] [address] [place] [address] Dec, Attention deficit hyperactiv ity disorder (ADHD), combined type F90.2 [facility] [address] [facility] [id number] [address] [place] [id number] Dec, Bipolar disorder, in partial remission, most recent episode hypomanic F31.71 ; Attention deficit hyperactivity disorder (ADHD), combined type F90.2 and Anxiety disorder, unspecified type F41.9 [facility] [address] [facility] [id number] [address] [place] [address] Dec, Bipolar disorder, in partial remission, most recent episode hypomanic F31.71 ; Attention deficit hyperactivity disorder (ADHD), combined type F90.2 and Anxiety disorder, unspecified type F41.9 [facility] [address] [facility] [id number] [address] [place] [address] Dec, Bipolar 1 disorder F31.9 and Attention deficit R41.840 [facility] [address] [facility] [id number] [address] [place] [address] Oct, Other chronic pain G89.29 ; Alopecia L65.9 and Screening, lipid Z13.220 [facility] [address] [facility] [id number] [address] [place] [address] Oct, [place] [id number] [facility] [id number] [address] [place] [address] Aug, [facility] [address] [facility] [id number] [address] [place] [address] Aug, Eustachian tube dysfunction, right H69.81 ; Vertigo R42 and Other chronic pain G89.29 [facility] [address] [id number] [address] [place] [address] Aug, [facility] [address] [id number] [address] [place] [address] Jun, [facility] [address] [id number] [address] [place] [address] Jun, Low back pain M54.5 and Othe r chronic pain G89.29 [facility] [address] [id number] [address] [place] [address] Jun, [facility] [address] [id number] [address] [place] [address] May, [facility] [address] [id number] [address] [place] [address] Jan, [facility] [address] [id number] [address] [place] [address] Dec, [facility] [address] [id number] [address] [place] [address] Dec, [facility] [address] [id number] [address] [place] [address] Jun, [facility] [address] [id number] [address] [place] [id number] Apr, Eustachian tube dysfunction, unspecified laterality H69.80 ; Hot flashes N95.1 and Encounter for immunization Z23 [facility] [address] [id number] [address] [place] [address] Jan, [facility] [address] [id number] [address] [place] [address] Jan, [facility] [address] [id number] [address] [place] [address] Jan, [facility] [address] [id number] [address] [place] [address] Jan, [facility] [address] [id number] [address] [place] [address] Jan, Encounter to establish care V65.8 ; Bipolar 1 disorder 296.7 ; Abdominal pain 789.00 ; Constipation 564.00 ; Hard of hearing 389.9 and Drug abuse 305.90 [facility] [address] [id number] [address] [place] [address] Dec, [facility] [address] [id number] [address] [place] [address] October, [facility] [address] [id number] [address] [place] [address] October, [facility] [address] [id number] [address] [place] [address] Oct, [facility] [address] [id number] [address] [place] [address] Oct, [facility] [address] [id number] [address] [place] [address] Oct, [facility] [address] [id number] [address] [place] [address] Aug, [facility] [address] [id number] [address] [place] [address] Aug, [facility] [address] [id number] [address] [place] [address] Aug, [facility] [address] [id number] [address] [place] [address] Aug, [facility] [address] [id number] [address] [place] [address] Aug, [facility] [address] [id number] [address] [place] [address] Aug, [facility] [address] [id number] [address] [place] [address], [place] [address] Aug, 2014 [facility] [address] [id number] [address] [place] [address], [place] [address] Aug, 2014 [facility] [address] [id number] [address] [place] [address], [place] [address] Aug, 2014 [facility] [address] [id number] [address] [place] [address], [place] [address] Aug, 2014 [facility] [address] [id number] [address] [place] [address], [place] [address] Aug, 2014 [facility] [address] [id number] [address] [place] [address], [place] [address] Aug, 2014 [facility] [address] [id number] [address] [place] [address], [place] [address] Aug, 2014 [facility] [address] [id number] [address] [place] [address], [place] [address] Aug, 2014 [facility] [address] [id number] [address] [place] [address], [place] [address] Aug, [facility] [address] [id number] [address] [place] [address], [place] [address] Jul, [facility] [address] [id number] [address] [place] [address], [place] [address] Jul, [facility] [address] [id number] [address] [place] [address], [place] [address] Jul, [facility] [address] [id number] [address] [place] [address], [place] [address] Jul, [facility] [address] [id number] [address] [place] [address], [place] [address] Jul, [facility] [address] [id number] [address] [place] [address], [place] [address] Jul, [facility] [address] [id number] [address] [place] [address], [place] [address] Jul, [facility] [address] [id number] [address] [place] [address], [place] [address] Jul, [facility] [address] [id number] [address] [place] [address], [place] [address] Jun, [facility] [address] [id number] [address] [place] [address], [place] [address] Jun, [facility] [address] [id number] [address] [place] [address], [place] [address] Jun, [facility] [address] [id number] [address] [place] [address], [place] [address] Jun, [facility] [address] [id number] [address] [place] [address], [place] [address] Jun, [facility] [address] [id number] [address] [place] [address], [place] [address] Jun, [facility] [address] [id number] [address] [place] [address], [place] [address] Jun, [facility] [address] [id number] [address] [place] [address], [place] [address] Jun, [facility] [address] [id number] [address] [place] [address], [place] [address] Jun, [facility] [address] [id number] [address] [place] [address], [place] [address] Jun, [facility] [address] [id number] [address] [place] [address], [place] [address] Jun, [facility] [address] [id number] [address] [place] [address], [place] [address] May, [facility] [address] [id number] [address] [place] [address], [place] [address] May, [facility] [address] [id number] [address] [place] [address], [place] [address] May, [facility] [address] [id number] [address] [place] [address], [place] [address] May, [facility] [address] [id number] [address] [place] [address], [place] [address] May, [facility] [address] [id number] [address] [place] [address], [place] [address] May, [facility] [address] [id number] [address] [place] [address], [place] [address] May, [facility] [address] [id number] [address] [place] [address], [place] [address] Apr, [facility] [address] [id number] [address] [place] [address], [place] [address] Apr, [facility] [address] [id number] [address] [place] [address], [place] [address] Apr, [facility] [address] [id number] [address] [place] [address], [place] [address] Apr, [facility] [address] [id number] [address] [place] [address], [place] [address] Apr, [facility] [address] [id number] [address] [place] [address], [place] [address] Apr, [facility] [address] [id number] [address] [place] [address], [place] [address] Mar, [facility] [address] [id number] [address] [place] [address], [place] [address] 29 Mar, 2013 [facility] [address] [id number] [address] [place] [address], [place] [address] 10 Mar, 2013 [facility] [address] [id number] [address] [place] [address], [place] [address] 10 Mar, 2013 [facility] [address] [id number] [address] [place] [address], [place] [address] Mar, 2013 [facility] [address] [id number] [address] [place] [address], [place] [address] Mar, [facility] [address] [id number] [address] [place] [address], [place] [address] Jan, [facility] [address] [id number] [address] [place] [address], [place] [address] Jan, [facility] [address] [id number] [address] [place] [address], [place] [address] Jan, [facility] [address] [id number] [address] [place] [address], [place] [address] Jan, [facility] [address] [id number] [address] [place] [address], [place] [address] Dec, [facility] [address] [id number] [address] [place] [address], [place] [address] Dec, [facility] [address] [id number] [address] [place] [address], [place] [address] Dec, [facility] [address] [id number] [address] [place] [address], [place] [address] Dec, [facility] [address] [id number] [address] [place] [address], [place] [address] Dec, [facility] [address] [id number] [address] [place] [address], [place] [address] Dec, [facility] [address] [id number] [address] [place] [address], [place] [address] Dec, [facility] [address] [id number] [address] [place] [address], [place] [address] Dec, [facility] [address] [id number] [address] [place] [address], [place] [address] Dec, [facility] [address] [id number] [address] [place] [address], [place] [address] Dec, [facility] [address] [id number] [address] [place] [address], [place] [address] Dec, [facility] [address] [id number] [address] [place] [address], [place] [address] Dec, [facility] [address] [id number] [address] [place] [address], [place] [address] October, [facility] [address] [id number] [address] [place] [address], [place] [address] October, [facility] [address] [id number] [address] [place] [address], [place] [address] October, [facility] [address] [id number] [address] [place] [address], [place] [address] October, [facility] [address] [id number] [address] [place] [address], [place] [address] October, [facility] [address] [id number] [address] [place] [address], [place] [address] October, [facility] [facility] [address] [id number] [address] [place] [address], [place] [address] Oct, [facility] [address] [id number] [address] [place] [address], [place] [address] Oct, [facility] [address] [id number] [address] [place] [address], [place] [address] Oct, [facility] [address] [id number] [address] [place] [address], [place] [address] Oct, [facility] [address] [id number] [address] [place] [address], [place] [address] Oct, [facility] [address] [id number] [address] [place] [address], [place] [address] Oct, [facility] [address] [id number] [address] [place] [address], [place] [address] Oct, [facility] [address] [id number] [address] [place] [address], [place] [address] Oct, [facility] [address] [id number] [address] [place] [address], [place] [address] Oct, [facility] [address] [id number] [facility] [place] [address] 09 Oct, 2013 [facility] [address] [id number] [facility] [place] [address] Oct, [facility] [address] [id number] [address] [place] [address], [place] [address] Oct, [facility] [address] [id number] [address] [place] [address], [place] [address] Aug, [facility] [address] [id number] [address] [place] [address], [place] [address] Aug, [facility] [address] [id number] [address] [place] [address], [place] [address] Aug, [facility] [address] [id number] [address] [place] [address], [place] [address] Aug, [facility] [address] [id number] [address] [place] [address], [place] [address] Aug, [facility] [address] [id number] [address] [place] [address], [place] [address] 05 Aug, 2013 [facility] [address] [id number] [address] [place] [address], [place] [address] Aug, [facility] [address] [id number] [address] [place] [address], [place] [address] Aug, [facility] [address] [id number] [address] [place] [address], [place] [address] Aug, [facility] [address] [id number] [address] [place] [address], [place] [address] Aug, [facility] [address] [id number] [address] [place] [address], [place] [address] Aug, [facility] [address] [id number] [address] [place] [address], [place] [address] Aug, [facility] [address] [id number] [address] [place] [address], [place] [address] Aug, [facility] [address] [id number] [address] [place] [address], [place] [address] 20 Aug, 2013 [facility] [address] [id number] [address] [place] [address], [place] [address] 14 Aug, 2013 [facility] [address] [id number] [address] [place] [address], [place] [address] 14 Aug, 2013 [facility] [address] [id number] [address] [place] [address], [place] [address] 14 Aug, 2013 [facility] [address] [id number] [address] [place] [address], [place] [address] 14 Aug, 2013 [facility] [address] [id number] [address] [place] [address], [place] [address] 07 Aug, 2013 [facility] [address] [id number] [address] [place] [address], [place] [address] 07 Aug, 2013 [facility] [address] [id number] [address] [place] [address], [place] [address] 06 Aug, 2013 [facility] [address] [id number] [address] [place] [address], [place] [address] 06 Aug, 2013 [facility] [address] [id number] [address] [place] [address], [place] [address] 04 Aug, 2013 [facility] [address] [id number] [address] [place] [address], [place] [address] 04 Aug, 2013 [facility] [address] [id number] [address] [place] [address], [place] [address] Aug, [facility] [address] [id number] [address] [place] [address], [place] [address] Jul, [facility] [address] [id number] [address] [place] [address], [place] [address] Jul, [facility] [address] [id number] [address] [place] [address], [place] [address] Jul, [facility] [address] [id number] [address] [place] [address], [place] [address] Jul, [facility] [address] [id number] [address] [place] [address], [place] [address] Jul, [facility] [address] [id number] [address] [place] [address], [place] [address] Jul, [facility] [address] [id number] [address] [place] [address], [place] [address] Jul, [facility] [address] [id number] [address] [place] [address], [place] [address] Jul, [facility] [address] [id number] [address] [place] [address], [place] [address] Jul, [facility] [address] [id number] [address] [place] [address], [place] [address] Jul, [facility] [address] [id number] [address] [place] [address], [place] [address] Jul, [facility] [address] [id number] [address] [place] [address], [place] [address] Jul, [facility] [address] [id number] [address] [place] [address], [place] [address] Jul, [facility] [address] [id number] [address] [place] [address], [place] [address] Jul, [facility] [address] [id number] [address] [place] [address], [place] [address] Jul, [facility] [address] [id number] [address] [place] [address], [place] [address] Jul, [facility] [address] [id number] [address] [place] [address], [place] [address] Jul, [facility] [address] [id number] [address] [place] [address], [place] [address] Jul, [facility] [address] [id number] [address] [place] [address], [place] [address] Jul, [facility] [address] [id number] [address] [place] [address], [place] [address] Jul, [facility] [address] [id number] [address] [place] [address], [place] [address] Jun, [facility] [address] [id number] [address] [place] [address], [place] [address] Jun, [facility] [address] [id number] [address] [place] [address], [place] [address] Jun, [facility] [address] [id number] [address] [place] [address], [place] [address] Jun, [facility] [address] [id number] [address] [place] [address], [place] [address] Jun, [facility] [address] [id number] [address] [place] [address], [place] [address] Jun, [facility] [address] [id number] [address] [place] [address], [place] [address] Jun, [facility] [address] [id number] [address] [place] [address], [place] [address] Jun, [facility] [address] [id number] [address] [place] [address], [place] [address] Jun, [facility] [address] [id number] [address] [place] [address], [place] [address] Jun, [facility] [address] [id number] [address] [place] [address], [place] [address] Jun, [facility] [address] [id number] [address] [place] [address], [place] [address] Jun, [facility] [address] [id number] [address] [place] [address], [place] [address] Jun, [facility] [address] [id number] [address] [place] [address], [place] [address] Jun, [facility] [address] [id number] [address] [place] [address], [place] [address] 20 Jun, 2013 [facility] [address] [id number] [address] [place] [address], [place] [address] 18 Jun, 2013 [facility] [address] [id number] [address] [place] [address], [place] [address] 18 Jun, 2013 [facility] [address] [id number] [address] [place] [address], [place] [address] 17 Jun, 2013 [facility] [address] [id number] [address] [place] [address], [place] [address] 17 Jun, 2013 [facility] [address] [id number] [address] [place] [address], [place] [address] 13 Jun, 2013 [facility] [address] [id number] [address] [place] [address], [place] [address] 12 Jun, 2013 [facility] [address] [id number] [address] [place] [address], [place] [address] 12 Jun, 2013 [facility] [address] [id number] [address] [place] [address], [place] [address] 09 Jun, 2013 [facility] [address] [id number] [address] [place] [address], [place] [address] 05 Jun, 2013 [facility] [address] [id number] [address] [place] [address], [place] [address] 05 Jun, 2013 [facility] [address] [id number] [address] [place] [address], [place] [address] 04 Jun, 2013 [facility] [address] [id number] [address] [place] [address], [place] [address] 04 Jun, 2013 [facility] [address] [id number] [address] [place] [address], [place] [address] 17 May, 2013 [facility] [address] [id number] [address] [place] [address], [place] [address] 17 May, 2013 [facility] [address] [id number] [address] [place] [address], [place] [address] May, [facility] [address] [id number] [address] [place] [address], [place] [address] May, [facility] [address] [id number] [address] [place] [address], [place] [address] May, [facility] [address] [id number] [address] [place] [address], [place] [address] May, [facility] [address] [id number] [address] [place] [address], [place] [address] Apr, [facility] [address] [id number] [address] [place] [address], [place] [address] Apr, [facility] [address] [id number] [address] [place] [address], [place] [address] Apr, [facility] [address] [id number] [address] [place] [address], [place] [address] Apr, [facility] [address] [id number] [address] [place] [address], [place] [address] Apr, [facility] [address] [id number] [address] [place] [address], [place] [address] Apr, [facility] [address] [id number] [address] [place] [address], [place] [address] Apr, [facility] [address] [id number] [address] [place] [address], [place] [address] Apr, [facility] [address] [id number] [address] [place] [address], [place] [address] 26 Mar, 2013 [facility] [address] [id number] [address] [place] [address] [address] 24 Sep2012 [facility] [address] [id number] [address] [place] [address], [place] [address] 17 Mar, 2013 [facility] [address] [id number] [address] [place] [address], [place] [address] 17 Mar, 2013 [facility] [address] [id number] [address] [place] [address] [place] [address] 11 Mar, 2013 [facility] [address] [id number] [address] [place] [address], [place] [address] 10 Mar, 2013 [facility] [address] [id number] [address] [place] [address], [place] [address] 05 Mar, 2013 [facility] [address] [id number] [address] [place] [address], [place] [address] 04 Mar, 2013 [facility] [address] [id number] [address] [place] [address], [place] [address] 20 Jan, 2013 [facility] [address] [id number] [address] [place] [address], [place] [address] Jan, [facility] [address] [id number] [address] [place] [address], [place] [address] 14 Jan, 2013 [facility] [address] [id number] [address] [place] [address], [place] [address] Jan, [facility] [address] [id number] [address] [place] [address], [place] [address] Jan, [facility] [address] [id number] [address] [place] [address], [place] [address] Jan, [facility] [address] [id number] [address] [place] [address], [place] [address] Dec, [facility] [address] [id number] [address] [place] [address], [place] [address] Dec, [facility] [address] [id number] [address] [place] [address], [place] [address] Dec, [facility] [address] [id number] [address] [place] [address], [place] [address] Dec, [facility] [address] [id number] [address] [place] [address], [place] [address] Dec, [facility] [address] [id number] [address] [place] [address], [place] [address] 17 Dec, 2012 [facility] [address] [id number] [address] [place] [address], [place] [address] 16 Dec, 2012 [facility] [address] [id number] [address] [place] [address], [place] [address] 16 Dec, 2012 [facility] [address] [id number] [address] [place] [address], [place] [address] 15 Dec, 2012 [facility] [address] [id number] [address] [place] [address], [place] [address] 10 Dec, 2012 [facility] [address] [id number] [address] [place] [address], [place] [address] 28 Dec, 2012 [facility] [address] [id number] [address] [place] [address], [place] [address] Dec, [facility] [address] [id number] [address] [place] [address], [place] [address] Dec, [facility] [address] [id number] [address] [place] [address], [place] [address] Dec, [facility] [address] [id number] [address] [place] [address], [place] [address] Dec, [facility] [address] [id number] [address] [place] [address], [place] [address] Dec, [facility] [address] [id number] [address] [place] [address], [place] [address] October, [facility] [address] [id number] [address] [place] [address], [place] [address] October, [facility] [address] [id number] [address] [place] [address], [place] [address] October, [facility] [address] [id number] [address] [place] [address], [place] [address] October, [facility] [address] [id number] [address] [place] [address], [place] [address] October, [facility] [address] [id number] [address] [place] [address], [place] [address] October, [facility] [address] [id number] [address] [place] [address], [place] [address] October, [facility] [address] [id number] [address] [place] [address], [place] [address] Oct, [facility] [address] [id number] [address] [place] [address], [place] [address] Oct, [facility] [address] [id number] [address] [place] [address], [place] [address] Oct, [facility] [address] [id number] [address] [place] [address], [place] [address] Oct, [facility] [address] [id number] [address] [place] [address], [place] [address] Oct, [facility] [address] [id number] [address] [place] [address], [place] [address] Oct, [facility] [address] [id number] [address] [place] [address], [place] [address] Oct, [facility] [address] [id number] [address] [place] [address], [place] [address] 15 Oct, 2012 [facility] [address] [id number] [address] [place] [address], [place] [address] Oct, [facility] [address] [id number] [address] [place] [address], [place] [address] Oct, [facility] [address] [id number] [address] [place] [address], [place] [address] Oct, [facility] [address] [id number] [address] [place] [address], [place] [address] Oct, [facility] [address] [id number] [address] [place] [address], [place] [address] Aug, [facility] [address] [id number] [address] [place] [address], [place] [address] Aug, [facility] [address] [id number] [address] [place] [address], [place] [address] 12 Aug, 2012 [facility] [address] [id number] [address] [place] [address], [place] [address] 06 Aug, 2012 [facility] [address] [id number] [address] [place] [address], [place] [address] 05 Aug, 2012 [facility] [address] [id number] [address] [place] [address], [place] [address] 05 Aug, 2012 [facility] [address] [id number] [address] [place] [address], [place] [address] 20 Aug, 2012 [facility] [address] [id number] [address] [place] [address], [place] [address] 14 Aug, 2012 [facility] [address] [id number] [address] [place] [address], [place] [address] 12 Aug, 2012 [facility] [address] [id number] [address] [place] [address], [place] [address] Aug, [facility] [address] [id number] [address] [place] [address], [place] [address] Jul, [facility] [address] [id number] [address] [place] [address], [place] [address] Jul, [facility] [address] [id number] [address] [place] [address], [place] [address] Jul, [facility] [address] [id number] [address] [place] [address], [place] [address] Jun, [facility] [address] [id number] [address] [place] [address], [place] [address] Jun, [facility] [address] [id number] [address] [place] [address], [place] [address] Jun, [facility] [address] [id number] [address] [place] [address], [place] [address] Jun, [facility] [address] [id number] [address] [place] [address], [place] [address] Jun, [facility] [address] [id number] [address] [place] [address], [place] [address] 14 Jun, 2012 [facility] [address] [id number] [address] [place] [address], [place] [address] 14 Jun, 2012 [facility] [address] [id number] [address] [place] [address], [place] [address] 13 Jun, 2012 [facility] [address] [id number] [address] [place] [address], [place] [address] 13 Jun, 2012 [facility] [address] [id number] [address] [place] [address], [place] [address] 11 Jun, 2012 [facility] [address] [id number] [address] [place] [address], [place] [address] 11 Jun, 2012 [facility] [address] [id number] [address] [place] [address], [place] [address] 11 Jun, 2012 [facility] [address] [id number] [address] [place] [address], [place] [address] 11 Jun, 2012 [facility] [address] [id number] [address] [place] [address], [place] [address] 07 Jun, 2012 [facility] [address] [id number] [address] [place] [address], [place] [address] 07 Jun, 2012 [facility] [address] [id number] [address] [place] [address], [place] [address] 06 Jun, 2012 [facility] [address] [id number] [address] [place] [address], [place] [address] 06 Jun, 2012 [facility] [address] [id number] [address] [place] [address], [place] [address] Jun, [facility] [address] [id number] [address] [place] [address], [place] [address] 06 Jun, 2012 [facility] [address] [id number] [address] [place] [address], [place] [address] 05 Jun, 2012 [facility] [address] [id number] [address] [place] [address], [place] [address] Jun, [facility] [address] [id number] [address] [place] [address], [place] [address] Jun, [facility] [address] [id number] [address] [place] [address], [place] [address] Jun, [facility] [address] [id number] [address] [place] [address], [place] [address] May, [facility] [address] [id number] [address] [place] [address], [place] [address] May, [facility] [address] [id number] [address] [place] [address], [place] [address] May, [facility] [address] [id number] [address] [place] [address], [place] [address] May, [facility] [address] [id number] [address] [place] [address], [place] [address] May, [facility] [address] [id number] [address] [place] [address], [place] [address] May, [facility] [address] [id number] [address] [place] [address], [place] [address] May, [facility] [address] [id number] [address] [place] [address], [place] [address] May, [facility] [address] [id number] [address] [place] [address], [place] [address] Apr, [facility] [address] [id number] [address] [place] [id number] Apr, [facility] [address] [id number] [address] [place] [address], [place] [address] Apr, [facility] [address] [id number] [address] [place] [address], [place] [address] Apr, [facility] [address] [id number] [address] [place] [id number] Apr, [facility] [address] [id number] [address] [place] [address], [place] [address] Apr, [facility] [address] [id number] [address] [place] [address], [place] [address] Apr, [facility] [address] [id number] [address] [place] [address], [place] [address] Apr, [facility] [address] [id number] [address] [place] [address], [place] [address] Apr, [facility] [address] [id number] [address] [place], [place] [address], [place] [address] Apr, [facility] [address] [id number] [address] [place] [address], [place] [address] Apr, [facility] [address] [id number] [address] [place] [address], [place] [address] Apr, [facility] [address] [id number] [address] [place] [address], [place] [address] Mar, [facility] [address] [id number] [address] [place] [address], [place] [address] 18 Mar, 2012 [facility] [address] [id number] [address] [place] [id number] Mar, [facility] [address] [id number] [address] [place] [id number] Mar, [facility] [address] [id number] [address] [place] [id number] Mar, [facility] [address] [id number] [address] [place] [id number] Mar, [facility] [address] [id number] [address] [place] [address], [place] [address] Mar, [facility] [address] [id number] [address] [place] [address], [place] [address] Jan, [facility] [address] [id number] [address] [place] [id number] Jan, [facility] [address] [id number] [facility] [place] [id number] Jan, [facility] [address] [id number] [facility] [place] [id number] Jan, [facility] [address] [id number] [address] [place] [address], [place] [address] Jan, [facility] [address] [id number] [address] [place] [address], [place] [address] Jan, [facility] [address] [id number] [address] [place] [address], [place] [address] Jan, [facility] [address] [id number] [address] [place] [address], [place] [address] Jan, [facility] [address] [id number] [address] [place] [address], [place] [address] Jan, [facility] [address] [id number] [address] [place] [address], [place] [address] Jan, [facility] [address] [id number] [address] [place] [address], [place] [address] Jan, [facility] [address] [id number] [address] [place] [address], [place] [address] Dec, [facility] [address] [id number] [address] [place] [address], [place] [address] Dec, [facility] [address] [id number] [address] [place] [address], [place] [address] Dec, [facility] [address] [id number] [address] [place] [address], [place] [address] Dec, [facility] [address] [id number] [address] [place] [address], [place] [address] Dec, [facility] [address] [id number] [address] [place] [address], [place] [address] Dec, [facility] [address] [id number] [address] [place] [address] [place] [address] 18 Jan, 2012 [facility] [address] [id number] [address] [place] [address], [place] [address] 17 Jan, 2012 [facility] [address] [id number] [address] [place] [address], [place] [address] 16 Jan, 2012 [facility] [address] [id number] [address] [place] [address], [place] [address] 13 Jan, 2012 [facility] [address] [id number] [address] [place] [address], [place] [address] 13 Jan, 2012 [facility] [address] [id number] [address] [place] [address], [place] [address] 02 Jan, 2012 [facility] [address] [id number] [address] [place] [address], [place] [address] Dec, [facility] [address] [id number] [address] [place] [address], [place] [address] Dec, [facility] [address] [id number] [address] [place] [address], [place] [address] Dec, [facility] [address] [id number] [address] [place] [address], [place] [address] Dec, [facility] [address] [id number] [address] [place] [address], [place] [address] 15 Dec, 2011 [facility] [address] [id number] [address] [place] [address], [place] [address] Dec, [facility] [address] [id number] [address] [place] [address], [place] [address] Dec, [facility] [address] [id number] [address] [place] [address], [place] [address] October, [facility] [address] [id number] [address] [place] [address], [place] [address] October, [facility] [address] [id number] [address] [place] [address], [place] [address] October, [facility] [address] [id number] [address] [place] [address], [place] [address] October, [facility] [address] [id number] [address] [place] [address], [place] [address] October, [facility] [address] [id number] [address] [place] [address], [place] [address] October, [facility] [address] [id number] [address] [place] [address], [place] [address] Oct, [facility] [address] [id number] [address] [place] [address], [place] [address] 24 Oct, 2011 [facility] [address] [id number] [address] [place] [address], [place] [address] Oct, [facility] [address] [id number] [address] [place] [address], [place] [address] Oct, [facility] [address] [id number] [address] [place] [address], [place] [address] Oct, [facility] [address] [id number] [address] [place] [address], [place] [address] Oct, [facility] [address] [id number] [address] [place] [address], [place] [address] Oct, [facility] [address] [id number] [address] [place] [address], [place] [address] Aug, [facility] [address] [id number] [address] [place] [address], [place] [address] 29 Sep, 2011 [facility] [address] [id number] [address] [place] [address], [place] [address] 19 Sep, 2011 [facility] [address] [id number] [address] [place] [address], [place] [address] 13 Sep, 2011 [facility] [address] [id number] [address] [place] [address], [place] [address] 05 Sep, 2011 [facility] [address] [id number] [address] [place] [address], [place] [address] Aug, [facility] [address] [id number] [address] [place] [address], [place] [address] Aug, [facility] [address] [id number] [address] [place] [address], [place] [address] Aug, [facility] [address] [id number] [address] [place] [address], [place] [address] Aug, [facility] [address] [id number] [address] [place] [address], [place] [address] Jul, [facility] [address] [id number] [address] [place] [address], [place] [address] Jul, [facility] [address] [id number] [address] [place] [address], [place] [address] Jul, [facility] [address] [id number] [address] [place] [address], [place] [address] Jul, [facility] [address] [id number] [address] [place] [address], [place] [address] Jun, [facility] [address] [id number] [address] [place] [address], [place] [address] Jun, [facility] [address] [id number] [address] [place] [address], [place] [address] May, [facility] [address] [id number] [address] [place] [address], [place] [address] May, [facility] [address] [id number] [address] [place] [address], [place] [address] May, [facility] [address] [id number] [address] [place] [address], [place] [address] May, [facility] [address] [id number] [address] [place] [address], [place] [address] 07 May, 2011 [facility] [address] [id number] [address] [place] [address], [place] [address] Apr, [facility] [address] [id number] [address] [place] [id number] Apr, [facility] [address] [id number] [address] [place] [address] Apr, [facility] [address] [id number] [address] [place] [address] Jan, [facility] [address] [id number] [address] [place] [id number] Dec, [facility] [address] [id number] [address] [place] [address] October, [facility] [address] [id number] [address] [place] [id number] Jun, [facility] [address] [id number] [address] [place] [id number] Apr, [facility] [address] [id number] [address] [place] [address] Apr, [facility] [address] [id number] [address] [place] [id number] Apr, [facility] [address] [id number] [address] [place] [id number] Jun, IMMUNIZATIONS No Known Immunizations SOCIAL HISTORY Never Assessed REASON FOR VISIT [facility] [place] PLAN OF CARE VITAL SIGNS MEDICATIONS Unknown Medications RESULTS No Results PROCEDURES No Known procedures INSTRUCTIONS MEDICATIONS ADMINISTERED No Known Medications MEDICAL (GENERAL) HISTORY Type Description Date Medical History Psychiatric disorder Medical History Hard of hearing Surgical History Neofibrous tumor Surgical History back injection Hospitalization History Intestinal blockage Hospitalization History past psychiatric hospitalizations x2
--- OUTSIDE RECORDS SUMMARY | 2020-01-25 12:58 | XMS REPORT ---
Author Author Ana Mayer Doctor Organization [facility] Address Unknown Phone Unavailable Care Team Providers Care Caterer Helper Name Role Phone Migration, Doctor Unavailable Unavailable PROBLEMS Type Condition ICD9-CM Code [id number] Code Onset Dates Condition S tatus SNOMED Code Problem Attention deficit R41.840 Active 76 366794 Problem Chronic hepatitis C without hepatic coma B18.2 Active 034845323 Problem Cannabis abuse F12.10 Active 23720 009 Problem Bipolar disorder, in partial remission, most rec ent episode hypomanic F31.71 Active [id number] Problem Attention deficit hyperactivity disorder (ADHD), combi luciano type F90.2 Active 60661023 Problem Bipolar 1 disorder F31.9 Active 3 45850427 Problem H/O laminectomy Z98.89 Active 1616 58262 Problem Other chronic pain G89.29 Active 8 4519256 Problem Anxiety disorder, unspecified type F41.9 Active 808724425 ALLERGIES No Information ENCOUNTERS Encounter Location Date Diagnosis [facility] [address] [id number] [address] [place] [phone] Oct, [facility] [address] [id number] [address] [place] [id number] Aug, Bipolar disorder, in partial remission, most recent episode hypomanic F31.71 ; Attention deficit hyperactivity disorder (ADHD), combined type F90.2 and Anxiety disorder, unspecified type F41.9 [facility] [address] [id number] [address] [place] [phone] Aug, [facility] [address] [id number] [address] [place] [phone] Aug, Bipolar disorder, in partial remission, most recent episode hypomanic F31.71 [facility] [address] [id number] [address] [place] [phone] Aug, [facility] [address] [id number] [address] [place] [phone] Aug, Bipolar disorder, in partial remission, most recent episode hypomanic F31.71 [facility] [address] [id number] [address] [place] [phone] Aug, Bipolar disorder, in partial remission, most recent episode hypomanic F31.71 ; Attention deficit hyperactivity disorder (ADHD), combined type F90.2 and Anxiety disorder, unspecified type F41.9 [facility] [address] [id number] [address] [place] [phone] Aug, Low back pain M54.5 and Pain in left wrist M25.532 [facility] [address] [id number] [address] [place] [phone] Aug, [facility] [address] [id number] [address] [place] [phone] Jun, [facility] [address] [id number] [address] [place] [phone] Apr, Bipolar disorder, in partial remission, most recent episode hypomanic F31.71 [facility] [address] [id number] [address] [place] [id number] Apr, [facility] [address] [id number] [address] [place] [phone] Apr, Bipolar disorder, in partial remission, most recent episode hypomanic F31.71 ; Attention deficit hyperactivity disorder (ADHD), combined type F90.2 ; Anxiety disorder, unspecified type F41.9 and Other mcc (current) 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 Z79.899 [facility] [address] [id number] [address] [place] [id number] Apr, Bipolar disorder, in partial remission, most recent episode hypomanic F31.71 [facility] [address] [id number] [address] [place] [phone] Apr, Bipolar disorder, in partial remission, most recent episode hypomanic F31.71 [facility] [address] [id number] [address] [place] [phone] Mar, [facility] [address] [id number] [address] [place] [phone] Mar, Bipolar disorder, in partial remission, most recent episode hypomanic F31.71 ; Encounter for immunization Z23 and Low back pain M54.5 [facility] [address] [id number] [address] [place] [phone] Mar, Bipolar disorder, in partial remission, most recent episode hypomanic F31.71 [facility] [address] [id number] [address] [place] [phone] Mar, Bipolar disorder, in partial remission, most recent episode hypomanic F31.71 [facility] [address] [id number] [address] [place] [phone] Jan, Bipolar disorder, in partial remission, most recent episode hypomanic F31.71 [facility] [address] [id number] [address] [place] [phone] Jan, Bipolar disorder, in partial remission, most recent episode hypomanic F31.71 [facility] [address] [id number] [address] [place] [phone] Dec, Bipolar disorder, in partial remission, most recent episode hypomanic F31.71 [facility] [address] [id number] [address] [place] [id number] Dec, Bipolar disorder, in partial remission, most recent episode hypomanic F31.71 ; Attention deficit hyperactivity disorder (ADHD), combined type F90.2 ; Anxiety disorder, unspecified type F41.9 and Other mcc (current) 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 Z79.899 [facility] [address] [id number] [address] [place] [phone] Dec, Bipolar disorder, in partial remission, most recent episode hypomanic F31.71 [facility] [address] [id number] [address] [place] [phone] Dec, Bipolar disorder, in partial remission, most recent episode hypomanic F31.71 [facility] [address] [id number] [address] [place] [phone] October, Bipolar disorder, in partial remission, most recent episode hypomanic F31.71 [facility] [address] [id number] [address] [place] [phone] October, [facility] [address] [id number] [address] [place] [phone] October, [facility] [address] [id number] [address] [place] [phone] Oct, Bipolar disorder, in partial remission, most recent episode hypomanic F31.71 ; Attention deficit hyperactivity disorder (ADHD), combined type F90.2 ; Anxiety disorder, unspecified type F41.9 and Encounter for drug screening Z02.83 [facility] [address] [id number] [address] [place] [phone] Oct, Bipolar disorder, in partial remission, most recent episode hypomanic F31.71 [facility] [address] [id number] [address] [place] [phone] Oct, Bipolar disorder, in partial remission, most recent episode hypomanic F31.71 [facility] [address] [id number] [address] [place] [phone] Aug, Bipolar disorder, in partial remission, most recent episode hypomanic F31.71 [facility] [address] [id number] [address] [place] [phone] Aug, Bipolar disorder, in partial remission, most recent episode hypomanic F31.71 [facility] [address] [id number] [address] [place] [phone] Aug, Bipolar disorder, in partial remission, most recent episode hypomanic F31.71 [facility] [address] [id number] [address] [place] [phone] Jul, Bipolar disorder, in partial remission, most recent episode hypomanic F31.71 ; Attention deficit hyperactivity disorder (ADHD), combined type F90.2 and Anxiety disorder, unspecified type F41.9 [facility] [address] [id number] [address] [place] [phone] Jul, Bipolar disorder, in partial remission, most recent episode hypomanic F31.71 [facility] [address] [id number] [address] [place] [phone] Jun, Bipolar disorder, in partial remission, most recent episode hypomanic F31.71 [facility] [address] [id number] [address] [place] [phone] May, Bipolar disorder, in partial remission, most recent episode hypomanic F31.71 [facility] [address] [id number] [address] [place] [phone] May, Bipolar disorder, in partial remission, most recent episode hypomanic F31.71 [facility] [address] [id number] [address] [place] [phone] Apr, [facility] [address] [id number] [address] [place] [phone] Apr, Bipolar disorder, in partial remission, most recent episode hypomanic F31.71 ; Attention deficit hyperactivity disorder (ADHD), combined type F90.2 ; Anxiety disorder, unspecified type F41.9 and Cannabis abuse F12.10 [facility] [address] [id number] [address] [place] [phone] Apr, Attention deficit hyperactiv ity disorder (ADHD), combined type F90.2 [facility] [address] [id number] [address] [place] [phone] Mar, Attention deficit hyperactiv ity disorder (ADHD), combined type F90.2 [facility] [address] [id number] [address] [place] [phone] Mar, Anxiety disorder, unspecifie d type F41.9 [facility] [address] [id number] [address] [place] [phone] Jan, Attention deficit hyperactiv ity disorder (ADHD), combined type F90.2 [facility] [address] [id number] [address] [place] [id number] Jan, Anxiety disorder, unspecifie d type F41.9 [facility] [address] [id number] [address] [place] [phone] Jan, Other chronic pain G89.29 ; Chronic hepatitis C without hepatic coma B18.2 and Bipolar 1 disorder F31.9 [facility] [address] [id number] [address] [place] [phone] Dec, Attention deficit hyperactiv ity disorder (ADHD), combined type F90.2 [facility] [address] [id number] [address] [place] [phone] Dec, Bipolar disorder, in partial remission, most recent episode hypomanic F31.71 ; Attention deficit hyperactivity disorder (ADHD), combined type F90.2 and Anxiety disorder, unspecified type F41.9 [facility] [address] [id number] [address] [place] [phone] Dec, Bipolar disorder, in partial remission, most recent episode hypomanic F31.71 ; Attention deficit hyperactivity disorder (ADHD), combined type F90.2 and Anxiety disorder, unspecified type F41.9 [facility] [address] [id number] [address] [place] [phone] Dec, Bipolar 1 disorder F31.9 and Attention deficit R41.840 [facility] [address] [id number] [address] [place] [phone] Oct, Other chronic pain G89.29 ; Alopecia L65.9 and Screening, lipid Z13.220 [facility] [address] [id number] [address] [place] [phone] Oct, [facility] [address] [id number] [address] [place] [phone] Aug, [facility] [address] [id number] [address] [place] [phone] Aug, Eustachian tube dysfunction, right H69.81 ; Vertigo R42 and Other chronic pain G89.29 [facility] [address] [id number] [address] [place] [phone] Aug, [facility] [address] [id number] [address] [place] [phone] Jun, [facility] [address] [id number] [address] [place] [phone] Jun, Low back pain M54.5 and Othe r chronic pain G89.29 [facility] [address] [id number] [address] [place] [phone] Jun, [facility] [address] [id number] [address] [place] [phone] May, [facility] [address] [id number] [address] [place] [phone] Jan, [facility] [address] [id number] [address] [place] [phone] Dec, [facility] [address] [id number] [address] [place] [phone] Dec, [facility] [address] [id number] [address] [place] [phone] Jun, [facility] [address] [id number] [address] [place] [phone] Apr, Eustachian tube dysfunction, unspecified laterality H69.80 ; Hot flashes N95.1 and Encounter for immunization Z23 [facility] [address] [id number] [address] [place] [id number] Jan, [facility] [address] [id number] [address] [place] [phone] Jan, [facility] [address] [id number] [address] [place] [phone] Jan, [facility] [address] [id number] [address] [place] [phone] Jan, [facility] [address] [id number] [address] [place] [phone] Jan, Encounter to establish care V65.8 ; Bipolar 1 disorder 296.7 ; Abdominal pain 789.00 ; Constipation 564.00 ; Hard of hearing 389.9 and Drug abuse 305.90 [facility] [address] [id number] [address] [place] [phone] Dec, [facility] [address] [id number] [address] [place] [phone] October, [facility] [address] [id number] [address] [place] [phone] October, [facility] [address] [id number] [address] [place] [phone] Oct, [facility] [address] [id number] [address] [place] [phone] Oct, [facility] [address] [id number] [address] [place] [phone] Oct, [facility] [address] [id number] [address] [place] [phone] Aug, [facility] [address] [id number] [address] [place] [phone] Aug, [facility] [address] [id number] [address] [place] [phone] Aug, [facility] [address] [id number] [address] [place] [phone] Aug, [facility] [address] [id number] [address] [place] [phone] Aug, [facility] [address] [id number] [address] [place] [phone] Aug, [facility] [address] [id number] [address] [place] [address], [place] [id number] Aug, 2014 [facility] [address] [id number] [address] [place] [address], [place] [id number] Aug, 2014 [facility] [address] [id number] [address] [place] [address], [place] [id number] Aug, 2014 [facility] [address] [id number] [address] [place] [address], [place] [id number] Aug, 2014 [facility] [address] [id number] [address] [place] [address], [place] [id number] Aug, 2014 [facility] [address] [id number] [address] [place] [address], [place] [id number] Aug, 2014 [facility] [address] [id number] [address] [place] [address], [place] [id number] Aug, 2014 [facility] [address] [id number] [address] [place] [address], [place] [id number] Aug, 2014 [facility] [address] [id number] [address] [place] [address], [place] [id number] Aug, [facility] [address] [id number] [address] [place] [address], [place] [id number] Jul, [facility] [address] [id number] [address] [place] [address], [place] [id number] Jul, [facility] [address] [id number] [address] [place] [address], [place] [id number] Jul, [facility] [address] [id number] [address] [place] [address], [place] [id number] Jul, [facility] [address] [id number] [address] [place] [address], [place] [id number] Jul, [facility] [address] [id number] [address] [place] [address], [place] [id number] Jul, [facility] [address] [id number] [address] [place] [address], [place] [id number] Jul, [facility] [address] [id number] [address] [place] [address], [place] [id number] Jul, [facility] [address] [id number] [address] [place] [address], [place] [id number] Jun, [facility] [address] [id number] [address] [place] [address], [place] [id number] Jun, [facility] [address] [id number] [address] [place] [address], [place] [id number] Jun, [facility] [address] [id number] [address] [place] [address], [place] [id number] Jun, [facility] [address] [id number] [address] [place] [address], [place] [id number] Jun, [facility] [address] [id number] [address] [place] [address], [place] [id number] Jun, [facility] [address] [id number] [address] [place] [address], [place] [id number] Jun, [facility] [address] [id number] [address] [place] [address], [place] [id number] Jun, [facility] [address] [id number] [address] [place] [address], [place] [id number] Jun, [facility] [address] [id number] [address] [place] [address], [place] [id number] Jun, [facility] [address] [id number] [address] [place] [address], [place] [id number] Jun, [facility] [address] [id number] [address] [place] [address], [place] [id number] May, [facility] [address] [id number] [address] [place] [address], [place] [id number] May, [facility] [address] [id number] [address] [place] [address], [place] [id number] May, [facility] [address] [id number] [address] [place] [address], [place] [id number] May, [facility] [address] [id number] [address] [place] [address], [place] [id number] May, [facility] [address] [id number] [address] [place] [address], [place] [id number] May, [facility] [address] [id number] [address] [place] [address], [place] [id number] May, [facility] [address] [id number] [address] [place] [address], [place] [id number] Apr, [facility] [address] [id number] [address] [place] [address], [place] [id number] Apr, [facility] [address] [id number] [address] [place] [address], [place] [id number] Apr, [facility] [address] [id number] [address] [place] [address], [place] [id number] Apr, [facility] [address] [id number] [address] [place] [address], [place] [id number] Apr, [facility] [address] [id number] [address] [place] [address], [place] [id number] Apr, [facility] [address] [id number] [address] [place] [address], [place] [id number] Mar, [facility] [address] [id number] [address] [place] [address], [place] [id number] 29 Mar, 2013 [facility] [address] [id number] [address] [place] [address], [place] [id number] 10 Mar, 2013 [facility] [address] [id number] [address] [place] [address], [place] [id number] 10 Mar, 2013 [facility] [address] [id number] [address] [place] [address], [place] [id number] Mar, 2013 [facility] [address] [id number] [address] [place] [address], [place] [id number] Mar, [facility] [address] [id number] [address] [place] [address], [place] [id number] Jan, [facility] [address] [id number] [address] [place] [address], [place] [id number] Jan, [facility] [address] [id number] [address] [place] [address], [place] [id number] Jan, [facility] [address] [id number] [address] [place] [address], [place] [id number] Jan, [facility] [address] [id number] [address] [place] [address], [place] [id number] Dec, [facility] [address] [id number] [address] [place] [address], [place] [id number] Dec, [facility] [address] [id number] [address] [place] [address], [place] [id number] Dec, [facility] [address] [id number] [address] [place] [address], [place] [id number] Dec, [facility] [address] [id number] [address] [place] [address], [place] [id number] Dec, [facility] [address] [id number] [address] [place] [address], [place] [id number] Dec, [facility] [address] [id number] [address] [place] [address], [place] [id number] Dec, [facility] [address] [id number] [address] [place] [address], [place] [id number] Dec, [facility] [address] [id number] [address] [place] [address], [place] [id number] Dec, [facility] [address] [id number] [address] [place] [address], [place] [id number] Dec, [facility] [address] [id number] [address] [place] [address], [place] [id number] Dec, [facility] [address] [id number] [address] [place] [address], [place] [id number] Dec, [facility] [address] [id number] [address] [place] [address], [place] [id number] October, [facility] [address] [id number] [address] [place] [address], [place] [id number] October, [facility] [address] [id number] [address] [place] [address], [place] [id number] October, [facility] [address] [id number] [address] [place] [address], [place] [id number] October, [facility] [address] [id number] [address] [place] [address], [place] [id number] October, [facility] [address] [id number] [address] [place] [address], [place] [id number] October, [facility] [address] [id number] [address] [place] [address], [place] [id number] Oct, [facility] [address] [id number] [address] [place] [address], [place] [id number] Oct, [facility] [address] [id number] [address] [place] [address], [place] [id number] Oct, [facility] [address] [id number] [address] [place] [address], [place] [id number] Oct, [facility] [address] [id number] [address] [place] [address], [place] [id number] Oct, [facility] [address] [id number] [address] [place] [address], [place] [id number] Oct, [facility] [address] [id number] [address] [place] [address], [place] [id number] Oct, [facility] [address] [id number] [address] [place] [address], [place] [id number] Oct, [facility] [address] [id number] [address] [place] [address], [place] [id number] Oct, [facility] [address] [id number] [facility] [id number] 09 Oct, 2013 [facility] [address] [id number] [facility] [place] [id number] Oct, [facility] [address] [id number] [address] [place] [address], [place] [id number] Oct, [facility] [address] [id number] [address] [place] [address], [place] [id number] Aug, [facility] [address] [id number] [address] [place] [address], [place] [id number] Aug, [facility] [address] [id number] [address] [place] [address], [place] [id number] Aug, [facility] [address] [id number] [address] [place] [address], [place] [id number] Aug, [facility] [facility] [address] [id number] [address] [place] [address], [place] [id number] Aug, [facility] [address] [id number] [address] [place] [address], [place] [id number] 05 Aug, 2013 [facility] [address] [id number] [address] [place] [address], [place] [id number] Aug, [facility] [address] [id number] [address] [place] [address], [place] [id number] Aug, [facility] [address] [id number] [address] [place] [address], [place] [id number] Aug, [facility] [address] [id number] [address] [place] [address], [place] [id number] Aug, [facility] [address] [id number] [address] [place] [address], [place] [id number] Aug, [facility] [address] [id number] [address] [place] [address], [place] [id number] Aug, [facility] [address] [id number] [address] [place] [address], [place] [id number] Aug, [facility] [address] [id number] [address] [place] [address], [place] [id number] 20 Aug, 2013 [facility] [address] [id number] [address] [place] [address], [place] [id number] 14 Aug, 2013 [facility] [address] [id number] [address] [place] [address], [place] [id number] 14 Aug, 2013 [facility] [address] [id number] [address] [place] [address], [place] [id number] 14 Aug, 2013 [facility] [address] [id number] [address] [place] [address], [place] [id number] 14 Aug, 2013 [facility] [address] [id number] [address] [place] [address], [place] [id number] 07 Aug, 2013 [facility] [address] [id number] [address] [place] [address], [place] [id number] 07 Aug, 2013 [facility] [address] [id number] [address] [place] [address], [place] [id number] 06 Aug, 2013 [facility] [address] [id number] [address] [place] [address], [place] [id number] 06 Aug, 2013 [facility] [address] [id number] [address] [place] [address], [place] [id number] 04 Aug, 2013 [facility] [address] [id number] [address] [place] [address], [place] [id number] 04 Aug, 2013 [facility] [address] [id number] [address] [place] [address], [place] [id number] Aug, [facility] [address] [id number] [address] [place] [address], [place] [id number] Jul, [facility] [address] [id number] [address] [place] [address], [place] [id number] Jul, [facility] [address] [id number] [address] [place] [address], [place] [id number] Jul, [facility] [address] [id number] [address] [place] [address], [place] [id number] Jul, [facility] [address] [id number] [address] [place] [address], [place] [id number] Jul, [facility] [address] [id number] [address] [place] [address], [place] [id number] Jul, [facility] [address] [id number] [address] [place] [address], [place] [id number] Jul, [facility] [address] [id number] [address] [place] [address], [place] [id number] Jul, [facility] [address] [id number] [address] [place] [address], [place] [id number] Jul, [facility] [address] [id number] [address] [place] [address], [place] [id number] Jul, [facility] [address] [id number] [address] [place] [address], [place] [id number] Jul, [facility] [address] [id number] [address] [place] [address], [place] [id number] Jul, [facility] [address] [id number] [address] [place] [address], [place] [id number] Jul, [facility] [address] [id number] [address] [place] [address], [place] [id number] Jul, [facility] [address] [id number] [address] [place] [address], [place] [id number] Jul, [facility] [address] [id number] [address] [place] [address], [place] [id number] Jul, [facility] [address] [id number] [address] [place] [address], [place] [id number] Jul, [facility] [address] [id number] [address] [place] [address], [place] [id number] Jul, [facility] [address] [id number] [address] [place] [address], [place] [id number] Jul, [facility] [address] [id number] [address] [place] [address], [place] [id number] Jul, [facility] [address] [id number] [address] [place] [address], [place] [id number] Jun, [facility] [address] [id number] [address] [place] [address], [place] [id number] Jun, [facility] [address] [id number] [address] [place] [address], [place] [id number] Jun, [facility] [address] [id number] [address] [place] [address], [place] [id number] Jun, [facility] [address] [id number] [address] [place] [address], [place] [id number] Jun, [facility] [address] [id number] [address] [place] [address], [place] [id number] Jun, [facility] [address] [id number] [address] [place] [address], [place] [id number] Jun, [facility] [address] [id number] [address] [place] [address], [place] [id number] Jun, [facility] [address] [id number] [address] [place] [address], [place] [id number] Jun, [facility] [address] [id number] [address] [place] [address], [place] [id number] Jun, [facility] [address] [id number] [address] [place] [address], [place] [id number] Jun, [facility] [address] [id number] [address] [place] [address], [place] [id number] Jun, [facility] [address] [id number] [address] [place] [address], [place] [id number] Jun, [facility] [address] [id number] [address] [place] [address], [place] [id number] Jun, [facility] [address] [id number] [address] [place] [address], [place] [id number] 20 Jun, 2013 [facility] [address] [id number] [address] [place] [address], [place] [id number] 18 Jun, 2013 [facility] [address] [id number] [address] [place] [address], [place] [id number] 18 Jun, 2013 [facility] [address] [id number] [address] [place] [address], [place] [id number] 17 Jun, 2013 [facility] [address] [id number] [address] [place] [address], [place] [id number] 17 Jun, 2013 [facility] [address] [id number] [address] [place] [address], [place] [id number] 13 Jun, 2013 [facility] [address] [id number] [address] [place] [address], [place] [id number] 12 Jun, 2013 [facility] [address] [id number] [address] [place] [address], [place] [id number] 12 Jun, 2013 [facility] [address] [id number] [address] [place] [address], [place] [id number] 09 Jun, 2013 [facility] [address] [id number] [address] [place] [address], [place] [id number] 05 Jun, 2013 [facility] [address] [id number] [address] [place] [address], [place] [id number] 05 Jun, 2013 [facility] [address] [id number] [address] [place] [address], [place] [id number] 04 Jun, 2013 [facility] [address] [id number] [address] [place] [address], [place] [id number] 04 Jun, 2013 [facility] [address] [id number] [address] [place] [address], [place] [id number] 17 May, 2013 [facility] [address] [id number] [address] [place] [address], [place] [id number] 17 May, 2013 [facility] [address] [id number] [address] [place] [address], [place] [id number] May, [facility] [address] [id number] [address] [place] [address], [place] [id number] May, [facility] [address] [id number] [address] [place] [address], [place] [id number] May, [facility] [address] [id number] [address] [place] [address], [place] [id number] May, [facility] [address] [id number] [address] [place] [address], [place] [id number] Apr, [facility] [address] [id number] [address] [place] [address], [place] [id number] Apr, [facility] [address] [id number] [address] [place] [address], [place] [id number] Apr, [facility] [address] [id number] [address] [place] [address], [place] [id number] Apr, [facility] [address] [id number] [address] [place] [address], [place] [id number] Apr, [facility] [address] [id number] [address] [place] [address], [place] [id number] Apr, [facility] [address] [id number] [address] [place] [address], [place] [id number] Apr, [facility] [address] [id number] [address] [place] [address], [place] [id number] Apr, [facility] [address] [id number] [address] [place] [address], [place] [id number] 26 Mar, 2013 [facility] [address] [id number] [address] [place] [address], [place] [id number] 24 Sep2012 [facility] [address] [id number] [address] [place] [address], [place] [id number] 17 Mar, 2013 [facility] [address] [id number] [address] [place] [address], [place] [id number] 17 Mar, 2013 [facility] [address] [id number] [address] [place] [address] [place] [id number] 11 Mar, 2013 [facility] [address] [id number] [address] [place] [address], [place] [id number] 10 Mar, 2013 [facility] [address] [id number] [address] [place] [address], [place] [id number] 05 Mar, 2013 [facility] [address] [id number] [address] [place] [address], [place] [id number] 04 Mar, 2013 [facility] [address] [id number] [address] [place] [address], [place] [id number] 20 Jan, 2013 [facility] [address] [id number] [address] [place] [address], [place] [id number] Jan, [facility] [address] [id number] [address] [place] [address], [place] [id number] 14 Jan, 2013 [facility] [address] [id number] [address] [place] [address], [place] [id number] Jan, [facility] [address] [id number] [address] [place] [address], [place] [id number] Jan, [facility] [address] [id number] [address] [place] [address], [place] [id number] Jan, [facility] [address] [id number] [address] [place] [address], [place] [id number] Dec, [facility] [address] [id number] [address] [place] [address], [place] [id number] Dec, [facility] [address] [id number] [address] [place] [address], [place] [id number] Dec, [facility] [address] [id number] [address] [place] [address], [place] [id number] Dec, [facility] [address] [id number] [address] [place] [address], [place] [id number] Dec, [facility] [address] [id number] [address] [place] [address], [place] [id number] 17 Dec, 2012 [facility] [address] [id number] [address] [place] [address], [place] [id number] 16 Dec, 2012 [facility] [address] [id number] [address] [place] [address], [place] [id number] 16 Dec, 2012 [facility] [address] [id number] [address] [place] [address], [place] [id number] 15 Dec, 2012 [facility] [address] [id number] [address] [place] [address], [place] [id number] 10 Dec, 2012 [facility] [address] [id number] [address] [place] [address], [place] [id number] 28 Dec, 2012 [facility] [address] [id number] [address] [place] [address], [place] [id number] Dec, [facility] [address] [id number] [address] [place] [address], [place] [id number] Dec, [facility] [address] [id number] [address] [place] [address], [place] [id number] Dec, [facility] [address] [id number] [address] [place] [address], [place] [id number] Dec, [facility] [address] [id number] [address] [place] [address], [place] [id number] Dec, [facility] [address] [id number] [address] [place] [address], [place] [id number] October, [facility] [address] [id number] [address] [place] [address], [place] [id number] October, [facility] [address] [id number] [address] [place] [address], [place] [id number] October, [facility] [address] [id number] [address] [place] [address], [place] [id number] October, [facility] [address] [id number] [address] [place] [address], [place] [id number] October, [facility] [address] [id number] [address] [place] [address], [place] [id number] October, [facility] [address] [id number] [address] [place] [address], [place] [id number] October, [facility] [address] [id number] [address] [place] [address], [place] [id number] Oct, [facility] [address] [id number] [address] [place] [address], [place] [id number] Oct, [facility] [address] [id number] [address] [place] [address], [place] [id number] Oct, [facility] [address] [id number] [address] [place] [address], [place] [id number] Oct, [facility] [address] [id number] [address] [place] [address], [place] [id number] Oct, [facility] [address] [id number] [address] [place] [address], [place] [id number] Oct, [facility] [address] [id number] [address] [place] [address], [place] [id number] Oct, [facility] [address] [id number] [address] [place] [address], [place] [id number] 15 Oct, 2012 [facility] [address] [id number] [address] [place] [address], [place] [id number] Oct, [facility] [address] [id number] [address] [place] [address], [place] [id number] Oct, [facility] [address] [id number] [address] [place] [address], [place] [id number] Oct, [facility] [address] [id number] [address] [place] [address], [place] [id number] Oct, [facility] [address] [id number] [address] [place] [address], [place] [id number] Aug, [facility] [address] [id number] [address] [place] [address], [place] [id number] Aug, [facility] [address] [id number] [address] [place] [address], [place] [id number] 12 Aug, 2012 [facility] [address] [id number] [address] [place] [address], [place] [id number] 06 Aug, 2012 [facility] [address] [id number] [address] [place] [address], [place] [id number] 05 Aug, 2012 [facility] [address] [id number] [address] [place] [address], [place] [id number] 05 Aug, 2012 [facility] [address] [id number] [address] [place] [address], [place] [id number] 20 Aug, 2012 [facility] [address] [id number] [address] [place] [address], [place] [id number] 14 Aug, 2012 [facility] [address] [id number] [address] [place] [address], [place] [id number] 12 Aug, 2012 [facility] [address] [id number] [address] [place] [address], [place] [id number] Aug, [facility] [address] [id number] [address] [place] [address], [place] [id number] Jul, [facility] [address] [id number] [address] [place] [address], [place] [id number] Jul, [facility] [address] [id number] [address] [place] [address], [place] [id number] Jul, [facility] [address] [id number] [address] [place] [address], [place] [id number] Jun, [facility] [address] [id number] [address] [place] [address], [place] [id number] Jun, [facility] [address] [id number] [address] [place] [address], [place] [id number] Jun, [facility] [address] [id number] [address] [place] [address], [place] [id number] Jun, [facility] [address] [id number] [address] [place] [address], [place] [id number] Jun, [facility] [address] [id number] [address] [place] [address], [place] [id number] 14 Jun, 2012 [facility] [address] [id number] [address] [place] [address], [place] [id number] 14 Jun, 2012 [facility] [address] [id number] [address] [place] [address], [place] [id number] 13 Jun, 2012 [facility] [address] [id number] [address] [place] [address], [place] [id number] 13 Jun, 2012 [facility] [address] [id number] [address] [place] [address], [place] [id number] 11 Jun, 2012 [facility] [address] [id number] [address] [place] [address], [place] [id number] 11 Jun, 2012 [facility] [address] [id number] [address] [place] [address], [place] [id number] 11 Jun, 2012 [facility] [address] [id number] [address] [place] [address], [place] [id number] 11 Jun, 2012 [facility] [address] [id number] [address] [place] [address], [place] [id number] 07 Jun, 2012 [facility] [address] [id number] [address] [place] [address], [place] [id number] 07 Jun, 2012 [facility] [address] [id number] [address] [place] [address], [place] [id number] 06 Jun, 2012 [facility] [address] [id number] [address] [place] [address], [place] [id number] 06 Jun, 2012 [facility] [address] [id number] [address] [place] [address], [place] [id number] Jun, [facility] [address] [id number] [address] [place] [address], [place] [id number] 06 Jun, 2012 [facility] [address] [id number] [address] [place] [address], [place] [id number] 05 Jun, 2012 [facility] [address] [id number] [address] [place] [address], [place] [id number] Jun, [facility] [address] [id number] [address] [place] [address], [place] [id number] Jun, [facility] [address] [id number] [address] [place] [address], [place] [id number] Jun, [facility] [address] [id number] [address] [place] [address], [place] [id number] May, [facility] [address] [id number] [address] [place] [address], [place] [id number] May, [facility] [address] [id number] [address] [place] [address], [place] [id number] May, [facility] [address] [id number] [address] [place] [address], [place] [id number] May, [facility] [address] [id number] [address] [place] [address], [place] [id number] May, [facility] [address] [id number] [address] [place] [address], [place] [id number] May, [facility] [address] [id number] [address] [place] [address], [place] [id number] May, [facility] [address] [id number] [address] [place] [address], [place] [id number] May, [facility] [address] [id number] [address] [place] [address], [place] [id number] Apr, [facility] [address] [id number] [address] [place] [id number] Apr, [facility] [address] [id number] [address] [place] [address], [place] [id number] Apr, [facility] [address] [id number] [address] [place] [address], [place] [id number] Apr, [facility] [address] [id number] [address] [place] [id number] Apr, [facility] [address] [id number] [address] [place] [address], [place] [id number] Apr, [facility] [address] [id number] [address] [place] [address], [place] [id number] Apr, [facility] [address] [id number] [address] [place] [address], [place] [id number] Apr, [facility] [address] [id number] [address] [place] [address], [place] [id number] Apr, [facility] [address] [id number] [address] [place] [address], [place] [id number] Apr, [facility] [address] [id number] [address] [place] [address], [place] [id number] Apr, [facility] [address] [id number] [address] [place] [address], [place] [id number] Apr, [facility] [address] [id number] [address] [place] [address], [place] [id number] Mar, [facility] [address] [id number] [address] [place] [address], [place] [id number] 18 Mar, 2012 [facility] [address] [id number] [address] [place] [id number] Mar, [facility] [address] [id number] [address] [place] [id number] Mar, [facility] [address] [id number] [address] [place] [id number] Mar, [facility] [address] [id number] [address] [place] [id number] Mar, [facility] [address] [id number] [address] [place] [address], [place] [id number] Mar, [facility] [address] [id number] [address] [place] [address], [place] [id number] Jan, [facility] [address] [id number] [address] [place] [id number] Jan, [facility] [address] [id number] [facility] [id number] Jan, [facility] [address] [id number] [facility] [id number] Jan, [facility] [address] [id number] [address] [place] [address], [place] [id number] Jan, [facility] [address] [id number] [address] [place] [address], [place] [id number] Jan, [facility] [address] [id number] [address] [place] [address], [place] [id number] Jan, [facility] [address] [id number] [address] [place] [address], [place] [id number] Jan, [facility] [address] [id number] [address] [place] [address], [place] [id number] Jan, [facility] [facility] [address] [id number] [address] [place] [address], [place] [id number] Jan, [facility] [address] [id number] [address] [place] [address], [place] [id number] Jan, [facility] [address] [id number] [address] [place] [address], [place] [id number] Dec, [facility] [address] [id number] [address] [place] [address], [place] [id number] Dec, [facility] [address] [id number] [address] [place] [address], [place] [id number] Dec, [facility] [address] [id number] [address] [place] [address], [place] [id number] Dec, [facility] [address] [id number] [address] [place] [address], [place] [id number] Dec, [facility] [address] [id number] [address] [place] [address], [place] [id number] Dec, [facility] [address] [id number] [address] [place] [address] [place] [id number] 18 Jan, 2012 [facility] [address] [id number] [address] [place] [address], [place] [id number] 17 Jan, 2012 [facility] [address] [id number] [address] [place] [address], [place] [id number] 16 Jan, 2012 [facility] [address] [id number] [address] [place] [address], [place] [id number] 13 Jan, 2012 [facility] [address] [id number] [address] [place] [address], [place] [id number] 13 Jan, 2012 [facility] [address] [id number] [address] [place] [address], [place] [id number] 02 Jan, 2012 [facility] [address] [id number] [address] [place] [address], [place] [id number] Dec, [facility] [address] [id number] [address] [place] [address], [place] [id number] Dec, [facility] [address] [id number] [address] [place] [address], [place] [id number] Dec, [facility] [address] [id number] [address] [place] [address], [place] [id number] Dec, [facility] [address] [id number] [address] [place] [address], [place] [id number] 15 Dec, 2011 [facility] [address] [id number] [address] [place] [address], [place] [id number] Dec, [facility] [address] [id number] [address] [place] [address], [place] [id number] Dec, [facility] [address] [id number] [address] [place] [address], [place] [id number] October, [facility] [address] [id number] [address] [place] [address], [place] [id number] October, [facility] [address] [id number] [address] [place] [address], [place] [id number] October, [facility] [address] [id number] [address] [place] [address], [place] [id number] October, [facility] [address] [id number] [address] [place] [address], [place] [id number] October, [facility] [address] [id number] [address] [place] [address], [place] [id number] October, [facility] [address] [id number] [address] [place] [address], [place] [id number] Oct, [facility] [address] [id number] [address] [place] [address], [place] [id number] 24 Oct, 2011 [facility] [address] [id number] [address] [place] [address], [place] [id number] Oct, [facility] [address] [id number] [address] [place] [address], [place] [id number] Oct, [facility] [address] [id number] [address] [place] [address], [place] [id number] Oct, [facility] [address] [id number] [address] [place] [address], [place] [id number] Oct, [facility] [address] [id number] [address] [place] [address], [place] [id number] Oct, [facility] [address] [id number] [address] [place] [address], [place] [id number] Aug, [facility] [address] [id number] [address] [place] [address], [place] [id number] 29 Sep, 2011 [facility] [address] [id number] [address] [place] [address], [place] [id number] 19 Sep, 2011 [facility] [address] [id number] [address] [place] [address], [place] [id number] 13 Sep, 2011 [facility] [address] [id number] [address] [place] [address], [place] [id number] 05 Sep, 2011 [facility] [address] [id number] [address] [place] [address], [place] [id number] Aug, [facility] [address] [id number] [address] [place] [address], [place] [id number] Aug, [facility] [address] [id number] [address] [place] [address], [place] [id number] Aug, [facility] [address] [id number] [address] [place] [address], [place] [id number] Aug, [facility] [address] [id number] [address] [place] [address], [place] [id number] Jul, [facility] [address] [id number] [address] [place] [address], [place] [id number] Jul, [facility] [address] [id number] [address] [place] [address], [place] [id number] Jul, [facility] [address] [id number] [address] [place] [address], [place] [id number] Jul, [facility] [address] [id number] [address] [place] [address], [place] [id number] Jun, [facility] [address] [id number] [address] [place] [address], [place] [id number] Jun, [facility] [address] [id number] [address] [place] [address], [place] [id number] May, [facility] [address] [id number] [address] [place] [address], [place] [id number] May, [facility] [address] [id number] [address] [place] [address], [place] [id number] May, [facility] [address] [id number] [address] [place] [address], [place] [id number] May, [facility] [address] [id number] [address] [place] [address], [place] [id number] 07 May, 2011 [facility] [address] [id number] [address] [place] [address], [place] [id number] Apr, [facility] [address] [id number] [address] [place] [id number] Apr, [facility] [address] [id number] [address] [place] [id number] Apr, [facility] [address] [id number] [address] [place] [id number] Jan, [facility] [address] [id number] [address] [place] [phone] Dec, [facility] [address] [id number] [address] [place] [id number] October, [facility] [address] [id number] [address] [place] [id number] Jun, [facility] [address] [id number] [address] [place] [id number] Apr, [facility] [address] [id number] [address] [place] [id number] Apr, [facility] [address] [id number] [address] [place] [id number] Apr, [facility] [address] [id number] [address] [place] [phone] Jun, IMMUNIZATIONS No Known Immunizations SOCIAL HISTORY Never Assessed REASON FOR VISIT [facility] [place] OF CARE VITAL SIGNS MEDICATIONS Unknown Medications RESULTS No Results PROCEDURES No Known procedures INSTRUCTIONS MEDICATIONS ADMINISTERED No Known Medications MEDICAL (GENERAL) HISTORY Type Description Date Medical History Psychiatric disorder Medical History Hard of hearing Surgical History Neofibrous tumor Surgical History back injection Hospitalization History Intestinal blockage Hospitalization History past psychiatric hospitalizations x2
--- OUTSIDE RECORDS SUMMARY | 2020-01-25 12:58 | XMS REPORT ---
Author Author Ana Mayer Doctor Organization [facility] Address Unknown Phone Unavailable Care Team Providers Care Time Broker Name Role Phone Migration, Doctor Unavailable Unavailable PROBLEMS Type Condition ICD9-CM Code [id number] Code Onset Dates Condition S tatus SNOMED Code Problem Attention deficit R41.840 Active 76 382855 Problem Chronic hepatitis C without hepatic coma B18.2 Active 175419700 Problem Cannabis abuse F12.10 Active 82274 009 Problem Bipolar disorder, in partial remission, most rec ent episode hypomanic F31.71 Active 535932072 Problem Attention deficit hyperactivity disorder (ADHD), combi luciano type F90.2 Active 64769015 Problem Bipolar 1 disorder F31.9 Active 3 09416339 Problem H/O laminectomy Z98.89 Active 1616 51141 Problem Other chronic pain G89.29 Active 8 3960563 Problem Anxiety disorder, unspecified type F41.9 Active 378467011 ALLERGIES No Information ENCOUNTERS Encounter Location Date Diagnosis [facility] [address] [facility] [id number] [address] [place] [address] Oct, [facility] [address] [facility] [id number] [address] [place] [address] Aug, Bipolar disorder, in partial remission, most recent episode hypomanic F31.71 ; Attention deficit hyperactivity disorder (ADHD), combined type F90.2 and Anxiety disorder, unspecified type F41.9 [facility] [address] [facility] [id number] [address] [place] [address] Aug, [facility] [address] [facility] [id number] [address] [place] [address] Aug, Bipolar disorder, in partial remission, most recent episode hypomanic F31.71 [facility] [address] [facility] [id number] [address] [place] [address] Aug, [facility] [address] [id number] [address] [place] [address] Aug, Bipolar disorder, in partial remission, most recent episode hypomanic F31.71 [facility] [address] [id number] [address] [place] [address] Aug, Bipolar disorder, in partial remission, most recent episode hypomanic F31.71 ; Attention deficit hyperactivity disorder (ADHD), combined type F90.2 and Anxiety disorder, unspecified type F41.9 [facility] [address] [id number] [address] [place] [address] Aug, Low back pain M54.5 and Pain in left wrist M25.532 [facility] [address] [id number] [address] [place] [address] Aug, [facility] [address] [id number] [address] [place] [address] Jun, [facility] [address] [facility] [id number] [address] [place] [address] Apr, Bipolar disorder, in partial remission, most recent episode hypomanic F31.71 [facility] [address] [id number] [address] [place] [address] Apr, [facility] [address] [id number] [address] [place] [address] Apr, Bipolar disorder, in partial remission, most recent episode hypomanic F31.71 ; Attention deficit hyperactivity disorder (ADHD), combined type F90.2 ; Anxiety disorder, unspecified type F41.9 and Other fpc (current) 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 Z79.899 [facility] [address] [id number] [address] [place] [address] Apr, Bipolar disorder, in partial remission, most recent episode hypomanic F31.71 [facility] [address] [id number] [address] [place] [address] Apr, Bipolar disorder, in partial remission, most recent episode hypomanic F31.71 [facility] [address] [facility] [id number] [address] [place] [address] Mar, [facility] [address] [id number] [address] [place] [address] Mar, Bipolar disorder, in partial remission, most recent episode hypomanic F31.71 ; Encounter for immunization Z23 and Low back pain M54.5 [facility] [address] [id number] [address] [place] [address] Mar, Bipolar disorder, in partial remission, most recent episode hypomanic F31.71 [facility] [address] [id number] [address] [place] [address] Mar, Bipolar disorder, in partial remission, most recent episode hypomanic F31.71 [facility] [address] [facility] [id number] [address] [place] [address] Jan, Bipolar disorder, in partial remission, most recent episode hypomanic F31.71 [facility] [address] [facility] [id number] [address] [place] [address] Jan, Bipolar disorder, in partial remission, most recent episode hypomanic F31.71 [facility] [address] [facility] [id number] [address] [place] [address] Dec, Bipolar disorder, in partial remission, most recent episode hypomanic F31.71 [facility] [address] [facility] [id number] [address] [place] [address] Dec, Bipolar disorder, in partial remission, most recent episode hypomanic F31.71 ; Attention deficit hyperactivity disorder (ADHD), combined type F90.2 ; Anxiety disorder, unspecified type F41.9 and Other fpc (current) 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 Z79.899 [facility] [address] [facility] [id number] [address] [place] [address] Dec, Bipolar disorder, in partial remission, most recent episode hypomanic F31.71 [facility] [address] [facility] [id number] [address] [place] [address] Dec, Bipolar disorder, in partial remission, most recent episode hypomanic F31.71 [facility] [address] [id number] [address] [place] [address] October, Bipolar disorder, in partial remission, most recent episode hypomanic F31.71 [facility] [address] [id number] [address] [place] [address] October, [facility] [address] [id number] [address] [place] [address] October, [facility] [address] [id number] [address] [place] [address] Oct, Bipolar disorder, in partial remission, most recent episode hypomanic F31.71 ; Attention deficit hyperactivity disorder (ADHD), combined type F90.2 ; Anxiety disorder, unspecified type F41.9 and Encounter for drug screening Z02.83 [facility] [address] [id number] [address] [place] [address] Oct, Bipolar disorder, in partial remission, most recent episode hypomanic F31.71 [facility] [address] [id number] [address] [place] [address] Oct, Bipolar disorder, in partial remission, most recent episode hypomanic F31.71 [facility] [address] [id number] [address] [place] [address] Aug, Bipolar disorder, in partial remission, most recent episode hypomanic F31.71 [facility] [address] [id number] [address] [place] [address] Aug, Bipolar disorder, in partial remission, most recent episode hypomanic F31.71 [facility] [address] [id number] [address] [place] [address] Aug, Bipolar disorder, in partial remission, most recent episode hypomanic F31.71 [facility] [address] [id number] [address] [place] [address] Jul, Bipolar disorder, in partial remission, most recent episode hypomanic F31.71 ; Attention deficit hyperactivity disorder (ADHD), combined type F90.2 and Anxiety disorder, unspecified type F41.9 [facility] [address] [id number] [address] [place] [address] Jul, Bipolar disorder, in partial remission, most recent episode hypomanic F31.71 [facility] [address] [id number] [address] [place] [address] Jun, Bipolar disorder, in partial remission, most recent episode hypomanic F31.71 [facility] [address] [id number] [address] [place] [address] May, Bipolar disorder, in partial remission, most recent episode hypomanic F31.71 [facility] [address] [facility] [id number] [address] [place] [address] May, Bipolar disorder, in partial remission, most recent episode hypomanic F31.71 [facility] [address] [facility] [id number] [address] [place] [address] Apr, [facility] [address] [id number] [address] [place] [address] Apr, Bipolar disorder, in partial remission, most recent episode hypomanic F31.71 ; Attention deficit hyperactivity disorder (ADHD), combined type F90.2 ; Anxiety disorder, unspecified type F41.9 and Cannabis abuse F12.10 [facility] [address] [id number] [address] [place] [address] Apr, Attention deficit hyperactiv ity disorder (ADHD), combined type F90.2 [facility] [address] [id number] [address] [place] [address] Mar, Attention deficit hyperactiv ity disorder (ADHD), combined type F90.2 [facility] [address] [facility] [id number] [address] [place] [address] Mar, Anxiety disorder, unspecifie d type F41.9 [facility] [address] [facility] [id number] [address] [place] [address] Jan, Attention deficit hyperactiv ity disorder (ADHD), combined type F90.2 [facility] [address] [facility] [id number] [address] [place] [address] Jan, Anxiety disorder, unspecifie d type F41.9 [facility] [address] [facility] [id number] [address] [place] [address] Jan, Other chronic pain G89.29 ; Chronic hepatitis C without hepatic coma B18.2 and Bipolar 1 disorder F31.9 [facility] [address] [facility] [id number] [address] [place] [address] Dec, Attention deficit hyperactiv ity disorder (ADHD), combined type F90.2 [facility] [address] [facility] [id number] [address] [place] [address] Dec, Bipolar disorder, in partial remission, most recent episode hypomanic F31.71 ; Attention deficit hyperactivity disorder (ADHD), combined type F90.2 and Anxiety disorder, unspecified type F41.9 [facility] [address] [facility] [id number] [address] [place] [address] Dec, Bipolar disorder, in partial remission, most recent episode hypomanic F31.71 ; Attention deficit hyperactivity disorder (ADHD), combined type F90.2 and Anxiety disorder, unspecified type F41.9 [facility] [address] [facility] [id number] [address] [place] [address] Dec, Bipolar 1 disorder F31.9 and Attention deficit R41.840 [facility] [address] [facility] [id number] [address] [place] [address] Oct, Other chronic pain G89.29 ; Alopecia L65.9 and Screening, lipid Z13.220 [facility] [address] [facility] [id number] [address] [place] [address] Oct, [facility] [address] [facility] [id number] [address] [place] [address] Aug, [facility] [address] [facility] [id number] [address] [place] [address] Aug, Eustachian tube dysfunction, right H69.81 ; Vertigo R42 and Other chronic pain G89.29 [facility] [address] [id number] [address] [place] [address] Aug, [facility] [address] [id number] [address] [place] [address] Jun, [facility] [address] [id number] [address] [place] [address] Jun, Low back pain M54.5 and Othe r chronic pain G89.29 [facility] [address] [id number] [address] [place] [address] Jun, [facility] [address] [id number] [address] [place] [address] May, [facility] [address] [id number] [address] [place] [address] Jan, [facility] [address] [id number] [address] [place] [address] Dec, [facility] [address] [id number] [address] [place] [address] Dec, [facility] [address] [id number] [address] [place] [address] Jun, [facility] [address] [id number] [address] [place] [address] Apr, Eustachian tube dysfunction, unspecified laterality H69.80 ; Hot flashes N95.1 and Encounter for immunization Z23 [facility] [address] [id number] [address] [place] [address] Jan, [facility] [address] [id number] [address] [place] [address] Jan, [facility] [address] [id number] [address] [place] [address] Jan, [facility] [address] [id number] [address] [place] [address] Jan, [facility] [address] [id number] [address] [place] [address] Jan, Encounter to establish care V65.8 ; Bipolar 1 disorder 296.7 ; Abdominal pain 789.00 ; Constipation 564.00 ; Hard of hearing 389.9 and Drug abuse 305.90 [facility] [address] [id number] [address] [place] [address] Dec, [facility] [address] [id number] [address] [place] [address] October, [facility] [address] [id number] [address] [place] [address] October, [facility] [address] [id number] [address] [place] [address] Oct, [facility] [address] [id number] [address] [place] [address] Oct, [facility] [address] [id number] [address] [place] [address] Oct, [facility] [address] [id number] [address] [place] [address] Aug, [facility] [address] [id number] [address] [place] [address] Aug, [facility] [address] [id number] [address] [place] [address] Aug, [facility] [address] [id number] [address] [place] [address] Aug, [facility] [address] [id number] [address] [place] [address] Aug, [facility] [address] [id number] [address] [place] [address] Aug, [facility] [address] [id number] [address] [place] [address], [place] [address] Aug, 2014 [facility] [address] [id number] [address] [place] [address], [place] [address] Aug, 2014 [facility] [address] [id number] [address] [place] [address], [place] [address] Aug, 2014 [facility] [address] [id number] [address] [place] [address], [place] [address] Aug, 2014 [facility] [address] [id number] [address] [place] [address], [place] [address] Aug, 2014 [facility] [address] [id number] [address] [place] [address], [place] [address] Aug, 2014 [facility] [address] [id number] [address] [place] [address], [place] [address] Aug, 2014 [facility] [address] [id number] [address] [place] [address], [place] [address] Aug, 2014 [facility] [address] [id number] [address] [place] [address], [place] [address] Aug, [facility] [address] [id number] [address] [place] [address], [place] [address] Jul, [facility] [address] [id number] [address] [place] [address], [place] [address] Jul, [facility] [address] [id number] [address] [place] [address], [place] [address] Jul, [facility] [address] [id number] [address] [place] [address], [place] [address] Jul, [facility] [address] [id number] [address] [place] [address], [place] [address] Jul, [facility] [address] [id number] [address] [place] [address], [place] [address] Jul, [facility] [address] [id number] [address] [place] [address], [place] [address] Jul, [facility] [address] [id number] [address] [place] [address], [place] [address] Jul, [facility] [address] [id number] [address] [place] [address], [place] [address] Jun, [facility] [address] [id number] [address] [place] [address], [place] [address] Jun, [facility] [address] [id number] [address] [place] [address], [place] [address] Jun, [facility] [address] [id number] [address] [place] [address], [place] [address] Jun, [facility] [address] [id number] [address] [place] [address], [place] [address] Jun, [facility] [address] [id number] [address] [place] [address], [place] [address] Jun, [facility] [address] [id number] [address] [place] [address], [place] [address] Jun, [facility] [address] [id number] [address] [place] [address], [place] [address] Jun, [facility] [address] [id number] [address] [place] [address], [place] [address] Jun, [facility] [address] [id number] [address] [place] [address], [place] [address] Jun, [facility] [address] [id number] [address] [place] [address], [place] [address] Jun, [facility] [address] [id number] [address] [place] [address], [place] [address] May, [facility] [address] [id number] [address] [place] [address], [place] [address] May, [facility] [address] [id number] [address] [place] [address], [place] [address] May, [facility] [address] [id number] [address] [place] [address], [place] [address] May, [facility] [address] [id number] [address] [place] [address], [place] [address] May, [facility] [address] [id number] [address] [place] [address], [place] [address] May, [facility] [address] [id number] [address] [place] [address], [place] [address] May, [facility] [address] [id number] [address] [place] [address], [place] [address] Apr, [facility] [address] [id number] [address] [place] [address], [place] [address] Apr, [facility] [address] [id number] [address] [place] [address], [place] [address] Apr, [facility] [address] [id number] [address] [place] [address], [place] [address] Apr, [facility] [address] [id number] [address] [place] [address], [place] [address] Apr, [facility] [address] [id number] [address] [place] [address], [place] [address] Apr, [facility] [address] [id number] [address] [place] [address], [place] [address] Mar, [facility] [address] [id number] [address] [place] [address], [place] [address] 29 Mar, 2013 [facility] [address] [id number] [address] [place] [address], [place] [address] 10 Mar, 2013 [facility] [address] [id number] [address] [place] [address], [place] [address] 10 Mar, 2013 [facility] [address] [id number] [address] [place] [address], [place] [address] Mar, 2013 [facility] [address] [id number] [address] [place] [address], [place] [address] Mar, [facility] [address] [id number] [address] [place] [address], [place] [address] Jan, [facility] [address] [id number] [address] [place] [address], [place] [address] Jan, [facility] [address] [id number] [address] [place] [address], [place] [address] Jan, [facility] [address] [id number] [address] [place] [address], [place] [address] Jan, [facility] [address] [id number] [address] [place] [address], [place] [address] Dec, [facility] [address] [id number] [address] [place] [address], [place] [address] Dec, [facility] [address] [id number] [address] [place] [address], [place] [address] Dec, [facility] [address] [id number] [address] [place] [address], [place] [address] Dec, [facility] [address] [id number] [address] [place] [address], [place] [address] Dec, [facility] [address] [id number] [address] [place] [address], [place] [address] Dec, [facility] [address] [id number] [address] [place] [address], [place] [address] Dec, [facility] [address] [id number] [address] [place] [address], [place] [address] Dec, [facility] [address] [id number] [address] [place] [address], [place] [address] Dec, [facility] [address] [id number] [address] [place] [address], [place] [address] Dec, [facility] [address] [id number] [address] [place] [address], [place] [address] Dec, [facility] [address] [id number] [address] [place] [address], [place] [address] Dec, [facility] [address] [id number] [address] [place] [address], [place] [address] October, [facility] [address] [id number] [address] [place] [address], [place] [address] October, [facility] [address] [id number] [address] [place] [address], [place] [address] October, [facility] [address] [id number] [address] [place] [address], [place] [address] October, [facility] [address] [id number] [address] [place] [address], [place] [address] October, [facility] [address] [id number] [address] [place] [address], [place] [address] October, [facility] [address] [id number] [address] [place] [address], [place] [address] Oct, [facility] [address] [id number] [address] [place] [address], [place] [address] Oct, [facility] [address] [id number] [address] [place] [address], [place] [address] Oct, [facility] [address] [id number] [address] [place] [address], [place] [address] Oct, [facility] [address] [id number] [address] [place] [address], [place] [address] Oct, [facility] [address] [id number] [address] [place] [address], [place] [address] Oct, [facility] [address] [id number] [address] [place] [address], [place] [address] Oct, [facility] [address] [id number] [address] [place] [address], [place] [address] Oct, [facility] [address] [id number] [address] [place] [address], [place] [address] Oct, [facility] [address] [id number] [address] [place] [address] 09 Oct, 2013 [facility] [address] [id number] [facility] [place] [address] Oct, [facility] [facility] [address] [id number] [address] [place] [address], [place] [address] Oct, [facility] [address] [id number] [address] [place] [address], [place] [address] Aug, [facility] [address] [id number] [address] [place] [address], [place] [address] Aug, [facility] [address] [id number] [address] [place] [address], [place] [address] Aug, [facility] [address] [id number] [address] [place] [address], [place] [address] Aug, [facility] [address] [id number] [address] [place] [address], [place] [address] Aug, [facility] [address] [id number] [address] [place] [address], [place] [address] 05 Aug, 2013 [facility] [address] [id number] [address] [place] [address], [place] [address] Aug, [facility] [address] [id number] [address] [place] [address], [place] [address] Aug, [facility] [address] [id number] [address] [place] [address], [place] [address] Aug, [facility] [address] [id number] [address] [place] [address], [place] [address] Aug, [facility] [address] [id number] [address] [place] [address], [place] [address] Aug, [facility] [address] [id number] [address] [place] [address], [place] [address] Aug, [facility] [address] [id number] [address] [place] [address], [place] [address] Aug, [facility] [address] [id number] [address] [place] [address], [place] [address] 20 Aug, 2013 [facility] [address] [id number] [address] [place] [address], [place] [address] 14 Aug, 2013 [facility] [address] [id number] [address] [place] [address], [place] [address] 14 Aug, 2013 [facility] [address] [id number] [address] [place] [address], [place] [address] 14 Aug, 2013 [facility] [address] [id number] [address] [place] [address], [place] [address] 14 Aug, 2013 [facility] [address] [id number] [address] [place] [address], [place] [address] 07 Aug, 2013 [facility] [address] [id number] [address] [place] [address], [place] [address] 07 Aug, 2013 [facility] [address] [id number] [address] [place] [address], [place] [address] 06 Aug, 2013 [facility] [address] [id number] [address] [place] [address], [place] [address] 06 Aug, 2013 [facility] [address] [id number] [address] [place] [address], [place] [address] 04 Aug, 2013 [facility] [address] [id number] [address] [place] [address], [place] [address] 04 Aug, 2013 [facility] [address] [id number] [address] [place] [address], [place] [address] Aug, [facility] [address] [id number] [address] [place] [address], [place] [address] Jul, [facility] [address] [id number] [address] [place] [address], [place] [address] Jul, [facility] [address] [id number] [address] [place] [address], [place] [address] Jul, [facility] [address] [id number] [address] [place] [address], [place] [address] Jul, [facility] [address] [id number] [address] [place] [address], [place] [address] Jul, [facility] [address] [id number] [address] [place] [address], [place] [address] Jul, [facility] [address] [id number] [address] [place] [address], [place] [address] Jul, [facility] [address] [id number] [address] [place] [address], [place] [address] Jul, [facility] [address] [id number] [address] [place] [address], [place] [address] Jul, [facility] [address] [id number] [address] [place] [address], [place] [address] Jul, [facility] [address] [id number] [address] [place] [address], [place] [address] Jul, [facility] [address] [id number] [address] [place] [address], [place] [address] Jul, [facility] [address] [id number] [address] [place] [address], [place] [address] Jul, [facility] [address] [id number] [address] [place] [address], [place] [address] Jul, [facility] [address] [id number] [address] [place] [address], [place] [address] Jul, [facility] [address] [id number] [address] [place] [address], [place] [address] Jul, [facility] [address] [id number] [address] [place] [address], [place] [address] Jul, [facility] [address] [id number] [address] [place] [address], [place] [address] Jul, [facility] [address] [id number] [address] [place] [address], [place] [address] Jul, [facility] [address] [id number] [address] [place] [address], [place] [address] Jul, [facility] [address] [id number] [address] [place] [address], [place] [address] Jun, [facility] [address] [id number] [address] [place] [address], [place] [address] Jun, [facility] [address] [id number] [address] [place] [address], [place] [address] Jun, [facility] [address] [id number] [address] [place] [address], [place] [address] Jun, [facility] [address] [id number] [address] [place] [address], [place] [address] Jun, [facility] [address] [id number] [address] [place] [address], [place] [address] Jun, [facility] [address] [id number] [address] [place] [address], [place] [address] Jun, [facility] [address] [id number] [address] [place] [address], [place] [address] Jun, [facility] [address] [id number] [address] [place] [address], [place] [address] Jun, [facility] [address] [id number] [address] [place] [address], [place] [address] Jun, [facility] [address] [id number] [address] [place] [address], [place] [address] Jun, [facility] [address] [id number] [address] [place] [address], [place] [address] Jun, [facility] [address] [id number] [address] [place] [address], [place] [address] Jun, [facility] [address] [id number] [address] [place] [address], [place] [address] Jun, [facility] [address] [id number] [address] [place] [address], [place] [address] 20 Jun, 2013 [facility] [address] [id number] [address] [place] [address], [place] [address] 18 Jun, 2013 [facility] [address] [id number] [address] [place] [address], [place] [address] 18 Jun, 2013 [facility] [address] [id number] [address] [place] [address], [place] [address] 17 Jun, 2013 [facility] [address] [id number] [address] [place] [address], [place] [address] 17 Jun, 2013 [facility] [address] [id number] [address] [place] [address], [place] [address] 13 Jun, 2013 [facility] [address] [id number] [address] [place] [address], [place] [address] 12 Jun, 2013 [facility] [address] [id number] [address] [place] [address], [place] [address] 12 Jun, 2013 [facility] [address] [id number] [address] [place] [address], [place] [address] 09 Jun, 2013 [facility] [address] [id number] [address] [place] [address], [place] [address] 05 Jun, 2013 [facility] [address] [id number] [address] [place] [address], [place] [address] 05 Jun, 2013 [facility] [address] [id number] [address] [place] [address], [place] [address] 04 Jun, 2013 [facility] [address] [id number] [address] [place] [address], [place] [address] 04 Jun, 2013 [facility] [address] [id number] [address] [place] [address], [place] [address] 17 May, 2013 [facility] [address] [id number] [address] [place] [address], [place] [address] 17 May, 2013 [facility] [address] [id number] [address] [place] [address], [place] [address] May, [facility] [address] [id number] [address] [place] [address], [place] [address] May, [facility] [address] [id number] [address] [place] [address], [place] [address] May, [facility] [address] [id number] [address] [place] [address], [place] [address] May, [facility] [address] [id number] [address] [place] [address], [place] [address] Apr, [facility] [address] [id number] [address] [place] [address], [place] [address] Apr, [facility] [address] [id number] [address] [place] [address], [place] [address] Apr, [facility] [address] [id number] [address] [place] [address], [place] [address] Apr, [facility] [address] [id number] [address] [place] [address], [place] [address] Apr, [facility] [address] [id number] [address] [place] [address], [place] [address] Apr, [facility] [address] [id number] [address] [place] [address], [place] [address] Apr, [facility] [address] [id number] [address] [place] [address], [place] [address] Apr, [facility] [address] [id number] [address] [place] [address], [place] [address] 26 Mar, 2013 [facility] [address] [id number] [address] [place] [address], [place] [address] 24 Sep2012 [facility] [address] [id number] [address] [place] [address], [place] [address] 17 Mar, 2013 [facility] [address] [id number] [address] [place] [address], [place] [address] 17 Mar, 2013 [facility] [place] [address] [id number] [address] [place] [address] [place] [address] 11 Mar, 2013 [facility] [address] [id number] [address] [place] [address], [place] [address] 10 Mar, 2013 [facility] [address] [id number] [address] [place] [address], [place] [address] 05 Mar, 2013 [facility] [address] [id number] [address] [place] [address], [place] [address] 04 Mar, 2013 [facility] [address] [id number] [address] [place] [address], [place] [address] 20 Jan, 2013 [facility] [address] [id number] [address] [place] [address], [place] [address] Jan, [facility] [address] [id number] [address] [place] [address], [place] [address] 14 Jan, 2013 [facility] [address] [id number] [address] [place] [address], [place] [address] Jan, [facility] [address] [id number] [address] [place] [address], [place] [address] Jan, [facility] [address] [id number] [address] [place] [address], [place] [address] Jan, [facility] [address] [id number] [address] [place] [address], [place] [address] Dec, [facility] [address] [id number] [address] [place] [address], [place] [address] Dec, [facility] [address] [id number] [address] [place] [address], [place] [address] Dec, [facility] [address] [id number] [address] [place] [address], [place] [address] Dec, [facility] [address] [id number] [address] [place] [address], [place] [address] Dec, [facility] [address] [id number] [address] [place] [address], [place] [address] 17 Dec, 2012 [facility] [address] [id number] [address] [place] [address], [place] [address] 16 Dec, 2012 [facility] [address] [id number] [address] [place] [address], [place] [address] 16 Dec, 2012 [facility] [address] [id number] [address] [place] [address], [place] [address] 15 Dec, 2012 [facility] [address] [id number] [address] [place] [address], [place] [address] 10 Dec, 2012 [facility] [address] [id number] [address] [place] [address], [place] [address] 28 Dec, 2012 [facility] [address] [id number] [address] [place] [address], [place] [address] Dec, [facility] [address] [id number] [address] [place] [address], [place] [address] Dec, [facility] [address] [id number] [address] [place] [address], [place] [address] Dec, [facility] [address] [id number] [address] [place] [address], [place] [address] Dec, [facility] [address] [id number] [address] [place] [address], [place] [address] Dec, [facility] [address] [id number] [address] [place] [address], [place] [address] October, [facility] [address] [id number] [address] [place] [address], [place] [address] October, [facility] [address] [id number] [address] [place] [address], [place] [address] October, [facility] [address] [id number] [address] [place] [address], [place] [address] October, [facility] [address] [id number] [address] [place] [address], [place] [address] October, [facility] [address] [id number] [address] [place] [address], [place] [address] October, [facility] [address] [id number] [address] [place] [address], [place] [address] October, [facility] [address] [id number] [address] [place] [address], [place] [address] Oct, [facility] [address] [id number] [address] [place] [address], [place] [address] Oct, [facility] [address] [id number] [address] [place] [address], [place] [address] Oct, [facility] [address] [id number] [address] [place] [address], [place] [address] Oct, [facility] [address] [id number] [address] [place] [address], [place] [address] Oct, [facility] [address] [id number] [address] [place] [address], [place] [address] Oct, [facility] [address] [id number] [address] [place] [address], [place] [address] Oct, [facility] [address] [id number] [address] [place] [address], [place] [address] 15 Oct, 2012 [facility] [address] [id number] [address] [place] [address], [place] [address] Oct, [facility] [address] [id number] [address] [place] [address], [place] [address] Oct, [facility] [address] [id number] [address] [place] [address], [place] [address] Oct, [facility] [address] [id number] [address] [place] [address], [place] [address] Oct, [facility] [address] [id number] [address] [place] [address], [place] [address] Aug, [facility] [address] [id number] [address] [place] [address], [place] [address] Aug, [facility] [address] [id number] [address] [place] [address], [place] [address] 12 Aug, 2012 [facility] [address] [id number] [address] [place] [address], [place] [address] 06 Aug, 2012 [facility] [address] [id number] [address] [place] [address], [place] [address] 05 Aug, 2012 [facility] [address] [id number] [address] [place] [address], [place] [address] 05 Aug, 2012 [facility] [address] [id number] [address] [place] [address], [place] [address] 20 Aug, 2012 [facility] [address] [id number] [address] [place] [address], [place] [address] 14 Aug, 2012 [facility] [address] [id number] [address] [place] [address], [place] [address] 12 Aug, 2012 [facility] [address] [id number] [address] [place] [address], [place] [address] Aug, [facility] [address] [id number] [address] [place] [address], [place] [address] Jul, [facility] [address] [id number] [address] [place] [address], [place] [address] Jul, [facility] [address] [id number] [address] [place] [address], [place] [address] Jul, [facility] [address] [id number] [address] [place] [address], [place] [address] Jun, [facility] [address] [id number] [address] [place] [address], [place] [address] Jun, [facility] [address] [id number] [address] [place] [address], [place] [address] Jun, [facility] [address] [id number] [address] [place] [address], [place] [address] Jun, [facility] [address] [id number] [address] [place] [address], [place] [address] Jun, [facility] [address] [id number] [address] [place] [address], [place] [address] 14 Jun, 2012 [facility] [address] [id number] [address] [place] [address], [place] [address] 14 Jun, 2012 [facility] [address] [id number] [address] [place] [address], [place] [address] 13 Jun, 2012 [facility] [address] [id number] [address] [place] [address], [place] [address] 13 Jun, 2012 [facility] [address] [id number] [address] [place] [address], [place] [address] 11 Jun, 2012 [facility] [address] [id number] [address] [place] [address], [place] [address] 11 Jun, 2012 [facility] [address] [id number] [address] [place] [address], [place] [address] 11 Jun, 2012 [facility] [address] [id number] [address] [place] [address], [place] [address] 11 Jun, 2012 [facility] [address] [id number] [address] [place] [address], [place] [address] 07 Jun, 2012 [facility] [address] [id number] [address] [place] [address], [place] [address] 07 Jun, 2012 [facility] [address] [id number] [address] [place] [address], [place] [address] 06 Jun, 2012 [facility] [address] [id number] [address] [place] [address], [place] [address] 06 Jun, 2012 [facility] [address] [id number] [address] [place] [address], [place] [address] Jun, [facility] [address] [id number] [address] [place] [address], [place] [address] 06 Jun, 2012 [facility] [address] [id number] [address] [place] [address], [place] [address] 05 Jun, 2012 [facility] [address] [id number] [address] [place] [address], [place] [address] Jun, [facility] [address] [id number] [address] [place] [address], [place] [address] Jun, [facility] [address] [id number] [address] [place] [address], [place] [address] Jun, [facility] [address] [id number] [address] [place] [address], [place] [address] May, [facility] [address] [id number] [address] [place] [address], [place] [address] May, [facility] [address] [id number] [address] [place] [address], [place] [address] May, [facility] [address] [id number] [address] [place] [address], [place] [address] May, [facility] [address] [id number] [address] [place] [address], [place] [address] May, [facility] [address] [id number] [address] [place] [address], [place] [address] May, [facility] [address] [id number] [address] [place] [address], [place] [address] May, [facility] [address] [id number] [address] [place] [address], [place] [address] May, [facility] [address] [id number] [address] [place] [address], [place] [address] Apr, [facility] [address] [id number] [address] [place] [id number] Apr, [facility] [address] [id number] [address] [place] [address], [place] [address] Apr, [facility] [address] [id number] [address] [place] [address], [place] [address] Apr, [facility] [address] [id number] [address] [place] [id number] Apr, [facility] [address] [id number] [address] [place] [address], [place] [address] Apr, [facility] [address] [id number] [address] [place] [address], [place] [address] Apr, [facility] [address] [id number] [address] [place] [address], [place] [address] Apr, [facility] [address] [id number] [address] [place] [address], [place] [address] Apr, [facility] [address] [id number] [address] [place] [address], [place] [address] Apr, [facility] [address] [id number] [address] [place] [address], [place] [address] Apr, [facility] [address] [id number] [address] [place] [address], [place] [address] Apr, [facility] [address] [id number] [address] [place] [address], [place] [address] Mar, [facility] [address] [id number] [address] [place] [address], [place] [address] 18 Mar, 2012 [facility] [address] [id number] [address] [place] [id number] Mar, [facility] [address] [id number] [address] [place] [id number] Mar, [facility] [address] [id number] [address] [place] [id number] Mar, [facility] [address] [id number] [address] [place] [id number] Mar, [facility] [address] [id number] [address] [place] [address], [place] [address] Mar, [facility] [address] [id number] [address] [place] [address], [place] [address] Jan, [facility] [address] [id number] [address] [place] [id number] Jan, [facility] [address] [id number] [facility] [id number] Jan, [facility] [address] [id number] [facility] [id number] Jan, [facility] [address] [id number] [address] [place] [address], [place] [address] Jan, [facility] [address] [id number] [address] [place] [address], [place] [address] Jan, [facility] [address] [id number] [address] [place] [address], [place] [address] Jan, [facility] [address] [id number] [address] [place] [address], [place] [address] Jan, [facility] [address] [id number] [address] [place] [address], [place] [id number] Jan, [facility] [address] [id number] [address] [place] [address], [place] [address] Jan, [facility] [address] [id number] [address] [place] [address], [place] [address] Jan, [facility] [address] [id number] [address] [place] [address], [place] [address] Dec, [facility] [address] [id number] [address] [place] [address], [place] [address] Dec, [facility] [address] [id number] [address] [place] [address], [place] [address] Dec, [facility] [address] [id number] [address] [place] [address], [place] [address] Dec, [facility] [place] [address] [id number] [address] [place] [address], [place] [address] Dec, [facility] [place] [facility] [address] [id number] [address] [place] [address], [place] [address] Dec, [facility] [address] [id number] [address] [place] [address] [place] [address] 18 Jan, 2012 [facility] [address] [id number] [address] [place] [address], [place] [address] 17 Jan, 2012 [facility] [address] [id number] [address] [place] [address], [place] [address] 16 Jan, 2012 [facility] [address] [id number] [address] [place] [address], [place] [address] 13 Jan, 2012 [facility] [address] [id number] [address] [place] [address], [place] [address] 13 Jan, 2012 [facility] [address] [id number] [address] [place] [address], [place] [address] 02 Jan, 2012 [facility] [address] [id number] [address] [place] [address], [place] [address] Dec, [facility] [address] [id number] [address] [place] [address], [place] [address] Dec, [facility] [address] [id number] [address] [place] [address], [place] [address] Dec, [facility] [address] [id number] [address] [place] [address], [place] [address] Dec, [facility] [address] [id number] [address] [place] [address], [place] [address] 15 Dec, 2011 [facility] [address] [id number] [address] [place] [address], [place] [address] Dec, [facility] [address] [id number] [address] [place] [address], [place] [address] Dec, [facility] [address] [id number] [address] [place] [address], [place] [address] October, [facility] [address] [id number] [address] [place] [address], [place] [address] October, [facility] [address] [id number] [address] [place] [address], [place] [address] October, [facility] [address] [id number] [address] [place] [address], [place] [address] October, [facility] [address] [id number] [address] [place] [address], [place] [address] October, [facility] [address] [id number] [address] [place] [address], [place] [address] October, [facility] [address] [id number] [address] [place] [address], [place] [address] Oct, [facility] [address] [id number] [address] [place] [address], [place] [address] 24 Oct, 2011 [facility] [address] [id number] [address] [place] [address], [place] [address] Oct, [facility] [address] [id number] [address] [place] [address], [place] [address] Oct, [facility] [address] [id number] [address] [place] [address], [place] [address] Oct, [facility] [address] [id number] [address] [place] [address], [place] [address] Oct, [facility] [address] [id number] [address] [place] [address], [place] [address] Oct, [facility] [address] [id number] [address] [place] [address], [place] [address] Aug, [facility] [address] [id number] [address] [place] [address], [place] [address] 29 Sep, 2011 [facility] [address] [id number] [address] [place] [address], [place] [address] 19 Sep, 2011 [facility] [address] [id number] [address] [place] [address], [place] [address] 13 Sep, 2011 [facility] [address] [id number] [address] [place] [address], [place] [address] 05 Sep, 2011 [facility] [address] [id number] [address] [place] [address], [place] [address] Aug, [facility] [address] [id number] [address] [place] [address], [place] [address] Aug, [facility] [address] [id number] [address] [place] [address], [place] [address] Aug, [facility] [address] [id number] [address] [place] [address], [place] [address] Aug, [facility] [address] [id number] [address] [place] [address], [place] [address] Jul, [facility] [address] [id number] [address] [place] [address], [place] [address] Jul, [facility] [address] [id number] [address] [place] [address], [place] [address] Jul, [facility] [address] [id number] [address] [place] [address], [place] [address] Jul, [facility] [address] [id number] [address] [place] [address], [place] [address] Jun, [facility] [address] [id number] [address] [place] [address], [place] [address] Jun, [facility] [address] [id number] [address] [place] [address], [place] [address] May, [facility] [address] [id number] [address] [place] [address], [place] [address] May, [facility] [address] [id number] [address] [place] [address], [place] [address] May, [facility] [address] [id number] [address] [place] [address], [place] [address] May, [facility] [address] [id number] [address] [place] [address], [place] [address] 07 May, 2011 [facility] [address] [id number] [address] [place] [address], [place] [address] Apr, [facility] [address] [id number] [address] [place] [address] Apr, [facility] [address] [id number] [address] [place] [address] Apr, [facility] [address] [id number] [address] [place] [address] Jan, [facility] [address] [id number] [address] [place] [address] Dec, [facility] [address] [id number] [address] [place] [address] October, [facility] [address] [id number] [address] [place] [address] Jun, [facility] [address] [id number] [address] [place] [address] Apr, [facility] [address] [id number] [address] [place] [address] Apr, [facility] [address] [id number] [address] [place] [address] Apr, [facility] [address] [id number] [address] [place] [address] Jun, IMMUNIZATIONS No Known Immunizations SOCIAL HISTORY Never Assessed REASON FOR VISIT [facility] [place] [...]
--- OUTSIDE RECORDS SUMMARY | 2020-01-25 12:59 | XMS REPORT ---
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 Name Role Phone Migration, Doctor Unavailable Unavailable PROBLEMS Type Condition ICD9-CM Code [id number] Code Onset Dates Condition S tatus SNOMED Code Problem Attention deficit R41.840 Active 76 457566 Problem Chronic hepatitis C without hepatic coma B18.2 Active 752350607 Problem Cannabis abuse F12.10 Active 89042 009 Problem Bipolar disorder, in partial remission, most rec ent episode hypomanic F31.71 Active 369302074 Problem Attention deficit hyperactivity disorder (ADHD), combi luciano type F90.2 Active 29315586 Problem Bipolar 1 disorder F31.9 Active 3 91743406 Problem H/O laminectomy Z98.89 Active 1616 42365 Problem Other chronic pain G89.29 Active 8 0875533 Problem Anxiety disorder, unspecified type F41.9 Active 753503714 ALLERGIES No Information ENCOUNTERS Encounter Location Date Diagnosis [facility] [address] [facility] [id number] [address] [place] [address] Oct, [facility] [address] [facility] [id number] [address] [place] [address] Aug, Bipolar disorder, in partial remission, most recent episode hypomanic F31.71 ; Attention deficit hyperactivity disorder (ADHD), combined type F90.2 and Anxiety disorder, unspecified type F41.9 [facility] [address] [facility] [id number] [address] [place] [address] Aug, [facility] [address] [facility] [id number] [address] [place] [address] Aug, Bipolar disorder, in partial remission, most recent episode hypomanic F31.71 [facility] [address] [facility] [id number] [address] [place] [address] Aug, [facility] [address] [id number] [address] [place] [address] Aug, Bipolar disorder, in partial remission, most recent episode hypomanic F31.71 [facility] [address] [id number] [address] [place] [address] Aug, Bipolar disorder, in partial remission, most recent episode hypomanic F31.71 ; Attention deficit hyperactivity disorder (ADHD), combined type F90.2 and Anxiety disorder, unspecified type F41.9 [facility] [address] [id number] [address] [place] [address] Aug, Low back pain M54.5 and Pain in left wrist M25.532 [facility] [address] [id number] [address] [place] [address] Aug, [facility] [address] [id number] [address] [place] [address] Jun, [facility] [address] [facility] [id number] [address] [place] [address] Apr, Bipolar disorder, in partial remission, most recent episode hypomanic F31.71 [facility] [address] [id number] [address] [place] [address] Apr, [facility] [address] [id number] [address] [place] [address] Apr, Bipolar disorder, in partial remission, most recent episode hypomanic F31.71 ; Attention deficit hyperactivity disorder (ADHD), combined type F90.2 ; Anxiety disorder, unspecified type F41.9 and Other mcc (current) 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 Z79.899 [facility] [address] [id number] [address] [place] [address] Apr, Bipolar disorder, in partial remission, most recent episode hypomanic F31.71 [facility] [address] [id number] [address] [place] [address] Apr, Bipolar disorder, in partial remission, most recent episode hypomanic F31.71 [facility] [address] [facility] [id number] [address] [place] [address] Mar, [facility] [address] [id number] [address] [place] [address] Mar, Bipolar disorder, in partial remission, most recent episode hypomanic F31.71 ; Encounter for immunization Z23 and Low back pain M54.5 [facility] [address] [id number] [address] [place] [address] Mar, Bipolar disorder, in partial remission, most recent episode hypomanic F31.71 [facility] [address] [id number] [address] [place] [address] Mar, Bipolar disorder, in partial remission, most recent episode hypomanic F31.71 [facility] [address] [facility] [id number] [address] [place] [address] Jan, Bipolar disorder, in partial remission, most recent episode hypomanic F31.71 [facility] [address] [facility] [id number] [address] [place] [address] Jan, Bipolar disorder, in partial remission, most recent episode hypomanic F31.71 [facility] [address] [facility] [id number] [address] [place] [address] Dec, Bipolar disorder, in partial remission, most recent episode hypomanic F31.71 [facility] [address] [facility] [id number] [address] [place] [address] Dec, Bipolar disorder, in partial remission, most recent episode hypomanic F31.71 ; Attention deficit hyperactivity disorder (ADHD), combined type F90.2 ; Anxiety disorder, unspecified type F41.9 and Other mcc (current) 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 Z79.899 [facility] [address] [facility] [id number] [address] [place] [address] Dec, Bipolar disorder, in partial remission, most recent episode hypomanic F31.71 [facility] [address] [facility] [id number] [address] [place] [address] Dec, Bipolar disorder, in partial remission, most recent episode hypomanic F31.71 [facility] [address] [id number] [address] [place] [address] October, Bipolar disorder, in partial remission, most recent episode hypomanic F31.71 [facility] [address] [id number] [address] [place] [address] October, [facility] [address] [id number] [address] [place] [address] October, [facility] [address] [id number] [address] [place] [address] Oct, Bipolar disorder, in partial remission, most recent episode hypomanic F31.71 ; Attention deficit hyperactivity disorder (ADHD), combined type F90.2 ; Anxiety disorder, unspecified type F41.9 and Encounter for drug screening Z02.83 [facility] [address] [id number] [address] [place] [address] Oct, Bipolar disorder, in partial remission, most recent episode hypomanic F31.71 [facility] [address] [id number] [address] [place] [address] Oct, Bipolar disorder, in partial remission, most recent episode hypomanic F31.71 [facility] [address] [id number] [address] [place] [address] Aug, Bipolar disorder, in partial remission, most recent episode hypomanic F31.71 [facility] [address] [id number] [address] [place] [address] Aug, Bipolar disorder, in partial remission, most recent episode hypomanic F31.71 [facility] [address] [id number] [address] [place] [address] Aug, Bipolar disorder, in partial remission, most recent episode hypomanic F31.71 [facility] [address] [id number] [address] [place] [address] Jul, Bipolar disorder, in partial remission, most recent episode hypomanic F31.71 ; Attention deficit hyperactivity disorder (ADHD), combined type F90.2 and Anxiety disorder, unspecified type F41.9 [facility] [address] [id number] [address] [place] [address] Jul, Bipolar disorder, in partial remission, most recent episode hypomanic F31.71 [facility] [address] [id number] [address] [place] [address] Jun, Bipolar disorder, in partial remission, most recent episode hypomanic F31.71 [facility] [address] [id number] [address] [place] [address] May, Bipolar disorder, in partial remission, most recent episode hypomanic F31.71 [facility] [address] [facility] [id number] [address] [place] [address] May, Bipolar disorder, in partial remission, most recent episode hypomanic F31.71 [facility] [address] [facility] [id number] [address] [place] [address] Apr, [facility] [address] [id number] [address] [place] [address] Apr, Bipolar disorder, in partial remission, most recent episode hypomanic F31.71 ; Attention deficit hyperactivity disorder (ADHD), combined type F90.2 ; Anxiety disorder, unspecified type F41.9 and Cannabis abuse F12.10 [facility] [address] [id number] [address] [place] [address] Apr, Attention deficit hyperactiv ity disorder (ADHD), combined type F90.2 [facility] [address] [id number] [address] [place] [address] Mar, Attention deficit hyperactiv ity disorder (ADHD), combined type F90.2 [facility] [address] [facility] [id number] [address] [place] [address] Mar, Anxiety disorder, unspecifie d type F41.9 [facility] [address] [facility] [id number] [address] [place] [address] Jan, Attention deficit hyperactiv ity disorder (ADHD), combined type F90.2 [facility] [address] [facility] [id number] [address] [place] [address] Jan, Anxiety disorder, unspecifie d type F41.9 [facility] [address] [facility] [id number] [address] [place] [address] Jan, Other chronic pain G89.29 ; Chronic hepatitis C without hepatic coma B18.2 and Bipolar 1 disorder F31.9 [facility] [address] [facility] [id number] [address] [place] [address] Dec, Attention deficit hyperactiv ity disorder (ADHD), combined type F90.2 [facility] [address] [facility] [id number] [address] [place] [address] Dec, Bipolar disorder, in partial remission, most recent episode hypomanic F31.71 ; Attention deficit hyperactivity disorder (ADHD), combined type F90.2 and Anxiety disorder, unspecified type F41.9 [facility] [address] [facility] [id number] [address] [place] [address] Dec, Bipolar disorder, in partial remission, most recent episode hypomanic F31.71 ; Attention deficit hyperactivity disorder (ADHD), combined type F90.2 and Anxiety disorder, unspecified type F41.9 [facility] [address] [facility] [id number] [address] [place] [address] Dec, Bipolar 1 disorder F31.9 and Attention deficit R41.840 [facility] [address] [facility] [id number] [address] [place] [address] Oct, Other chronic pain G89.29 ; Alopecia L65.9 and Screening, lipid Z13.220 [facility] [address] [facility] [id number] [address] [place] [address] Oct, [place] [address] [facility] [id number] [address] [place] [address] Aug, [facility] [address] [facility] [id number] [address] [place] [address] Aug, Eustachian tube dysfunction, right H69.81 ; Vertigo R42 and Other chronic pain G89.29 [facility] [address] [id number] [address] [place] [address] Aug, [facility] [address] [id number] [address] [place] [address] Jun, [facility] [address] [id number] [address] [place] [address] Jun, Low back pain M54.5 and Othe r chronic pain G89.29 [facility] [address] [id number] [address] [place] [address] Jun, [facility] [address] [id number] [address] [place] [address] May, [facility] [address] [id number] [address] [place] [address] Jan, [facility] [address] [id number] [address] [place] [address] Dec, [facility] [address] [id number] [address] [place] [address] Dec, [facility] [address] [id number] [address] [place] [address] Jun, [facility] [address] [id number] [address] [place] [address] Apr, Eustachian tube dysfunction, unspecified laterality H69.80 ; Hot flashes N95.1 and Encounter for immunization Z23 [facility] [address] [id number] [address] [place] [address] Jan, [facility] [address] [id number] [address] [place] [address] Jan, [facility] [address] [id number] [address] [place] [address] Jan, [facility] [address] [id number] [address] [place] [address] Jan, [facility] [address] [id number] [address] [place] [address] Jan, Encounter to establish care V65.8 ; Bipolar 1 disorder 296.7 ; Abdominal pain 789.00 ; Constipation 564.00 ; Hard of hearing 389.9 and Drug abuse 305.90 [facility] [address] [id number] [address] [place] [address] Dec, [facility] [address] [id number] [address] [place] [address] October, [facility] [address] [id number] [address] [place] [address] October, [facility] [address] [id number] [address] [place] [address] Oct, [facility] [address] [id number] [address] [place] [address] Oct, [facility] [address] [id number] [address] [place] [address] Oct, [facility] [address] [id number] [address] [place] [address] Aug, [facility] [address] [id number] [address] [place] [address] Aug, [facility] [address] [id number] [address] [place] [address] Aug, [facility] [address] [id number] [address] [place] [address] Aug, [facility] [address] [id number] [address] [place] [address] Aug, [facility] [address] [id number] [address] [place] [address] Aug, [facility] [address] [id number] [address] [place] [address], [place] [address] Aug, 2014 [facility] [address] [id number] [address] [place] [address], [place] [address] Aug, 2014 [facility] [address] [id number] [address] [place] [address], [place] [address] Aug, 2014 [facility] [address] [id number] [address] [place] [address], [place] [address] Aug, 2014 [facility] [address] [id number] [address] [place] [address], [place] [address] Aug, 2014 [facility] [address] [id number] [address] [place] [address], [place] [address] Aug, 2014 [facility] [address] [id number] [address] [place] [address], [place] [address] Aug, 2014 [facility] [address] [id number] [address] [place] [address], [place] [address] Aug, 2014 [facility] [address] [id number] [address] [place] [address], [place] [address] Aug, [facility] [address] [id number] [address] [place] [address], [place] [address] Jul, [facility] [address] [id number] [address] [place] [address], [place] [address] Jul, [facility] [address] [id number] [address] [place] [address], [place] [address] Jul, [facility] [address] [id number] [address] [place] [address], [place] [address] Jul, [facility] [address] [id number] [address] [place] [address], [place] [address] Jul, [facility] [address] [id number] [address] [place] [address], [place] [address] Jul, [facility] [address] [id number] [address] [place] [address], [place] [address] Jul, [facility] [address] [id number] [address] [place] [address], [place] [address] Jul, [facility] [address] [id number] [address] [place] [address], [place] [address] Jun, [facility] [address] [id number] [address] [place] [address], [place] [address] Jun, [facility] [address] [id number] [address] [place] [address], [place] [address] Jun, [facility] [address] [id number] [address] [place] [address], [place] [address] Jun, [facility] [address] [id number] [address] [place] [address], [place] [address] Jun, [facility] [address] [id number] [address] [place] [address], [place] [address] Jun, [facility] [address] [id number] [address] [place] [address], [place] [address] Jun, [facility] [address] [id number] [address] [place] [address], [place] [address] Jun, [facility] [address] [id number] [address] [place] [address], [place] [address] Jun, [facility] [address] [id number] [address] [place] [address], [place] [address] Jun, [facility] [address] [id number] [address] [place] [address], [place] [address] Jun, [facility] [address] [id number] [address] [place] [address], [place] [address] May, [facility] [address] [id number] [address] [place] [address], [place] [address] May, [facility] [address] [id number] [address] [place] [address], [place] [address] May, [facility] [address] [id number] [address] [place] [address], [place] [address] May, [facility] [address] [id number] [address] [place] [address], [place] [address] May, [facility] [address] [id number] [address] [place] [address], [place] [address] May, [facility] [address] [id number] [address] [place] [address], [place] [address] May, [facility] [address] [id number] [address] [place] [address], [place] [address] Apr, [facility] [address] [id number] [address] [place] [address], [place] [address] Apr, [facility] [address] [id number] [address] [place] [address], [place] [address] Apr, [facility] [address] [id number] [address] [place] [address], [place] [address] Apr, [facility] [address] [id number] [address] [place] [address], [place] [address] Apr, [facility] [address] [id number] [address] [place] [address], [place] [address] Apr, [facility] [address] [id number] [address] [place] [address], [place] [address] Mar, [facility] [address] [id number] [address] [place] [address], [place] [address] 29 Mar, 2013 [facility] [address] [id number] [address] [place] [address], [place] [address] 10 Mar, 2013 [facility] [address] [id number] [address] [place] [address], [place] [address] 10 Mar, 2013 [facility] [address] [id number] [address] [place] [address], [place] [address] Mar, 2013 [facility] [address] [id number] [address] [place] [address], [place] [address] Mar, [facility] [address] [id number] [address] [place] [address], [place] [address] Jan, [facility] [address] [id number] [address] [place] [address], [place] [address] Jan, [facility] [address] [id number] [address] [place] [address], [place] [address] Jan, [facility] [address] [id number] [address] [place] [address], [place] [address] Jan, [facility] [address] [id number] [address] [place] [address], [place] [address] Dec, [facility] [address] [id number] [address] [place] [address], [place] [address] Dec, [facility] [address] [id number] [address] [place] [address], [place] [address] Dec, [facility] [address] [id number] [address] [place] [address], [place] [address] Dec, [facility] [address] [id number] [address] [place] [address], [place] [address] Dec, [facility] [address] [id number] [address] [place] [address], [place] [address] Dec, [facility] [address] [id number] [address] [place] [address], [place] [address] Dec, [facility] [address] [id number] [address] [place] [address], [place] [address] Dec, [facility] [address] [id number] [address] [place] [address], [place] [address] Dec, [facility] [address] [id number] [address] [place] [address], [place] [address] Dec, [facility] [address] [id number] [address] [place] [address], [place] [address] Dec, [facility] [address] [id number] [address] [place] [address], [place] [address] Dec, [facility] [address] [id number] [address] [place] [address], [place] [address] October, [facility] [address] [id number] [address] [place] [address], [place] [address] October, [facility] [address] [id number] [address] [place] [address], [place] [address] October, [facility] [address] [id number] [address] [place] [address], [place] [address] October, [facility] [address] [id number] [address] [place] [address], [place] [address] October, [facility] [address] [id number] [address] [place] [address], [place] [address] October, [facility] [address] [id number] [address] [place] [address], [place] [address] Oct, [facility] [address] [id number] [address] [place] [address], [place] [address] Oct, [facility] [address] [id number] [address] [place] [address], [place] [address] Oct, [facility] [address] [id number] [address] [place] [address], [place] [address] Oct, [facility] [address] [id number] [address] [place] [address], [place] [address] Oct, [facility] [address] [id number] [address] [place] [address], [place] [address] Oct, [facility] [address] [id number] [address] [place] [address], [place] [address] Oct, [facility] [address] [id number] [address] [place] [address], [place] [address] Oct, [facility] [address] [id number] [address] [place] [address], [place] [address] Oct, [facility] [address] [id number] [address] [place] [address] 09 Oct, 2013 [facility] [address] [id number] [facility] [place] [address] Oct, [facility] [address] [id number] [address] [place] [address], [place] [address] Oct, [facility] [address] [id number] [address] [place] [address], [place] [address] Aug, [facility] [address] [id number] [address] [place] [address], [place] [address] Aug, [facility] [address] [id number] [address] [place] [address], [place] [address] Aug, [facility] [address] [id number] [address] [place] [address], [place] [address] Aug, [facility] [address] [id number] [address] [place] [address], [place] [address] Aug, [facility] [address] [id number] [address] [place] [address], [place] [address] 05 Aug, 2013 [facility] [address] [id number] [address] [place] [address], [place] [address] Aug, [facility] [address] [id number] [address] [place] [address], [place] [address] Aug, [facility] [address] [id number] [address] [place] [address], [place] [address] Aug, [facility] [address] [id number] [address] [place] [address], [place] [address] Aug, [facility] [address] [id number] [address] [place] [address], [place] [address] Aug, [facility] [address] [id number] [address] [place] [address], [place] [address] Aug, [facility] [address] [id number] [address] [place] [address], [place] [address] Aug, [facility] [address] [id number] [address] [place] [address], [place] [address] 20 Aug, 2013 [facility] [address] [id number] [address] [place] [address], [place] [address] 14 Aug, 2013 [facility] [address] [id number] [address] [place] [address], [place] [address] 14 Aug, 2013 [facility] [address] [id number] [address] [place] [address], [place] [address] 14 Aug, 2013 [facility] [address] [id number] [address] [place] [address], [place] [address] 14 Aug, 2013 [facility] [address] [id number] [address] [place] [address], [place] [address] 07 Aug, 2013 [facility] [address] [id number] [address] [place] [address], [place] [address] 07 Aug, 2013 [facility] [address] [id number] [address] [place] [address], [place] [address] 06 Aug, 2013 [facility] [address] [id number] [address] [place] [address], [place] [address] 06 Aug, 2013 [facility] [address] [id number] [address] [place] [address], [place] [address] 04 Aug, 2013 [facility] [address] [id number] [address] [place] [address], [place] [address] 04 Aug, 2013 [facility] [address] [id number] [address] [place] [address], [place] [address] Aug, [facility] [address] [id number] [address] [place] [address], [place] [address] Jul, [facility] [address] [id number] [address] [place] [address], [place] [address] Jul, [facility] [address] [id number] [address] [place] [address], [place] [address] Jul, [facility] [address] [id number] [address] [place] [address], [place] [address] Jul, [facility] [address] [id number] [address] [place] [address], [place] [address] Jul, [facility] [address] [id number] [address] [place] [address], [place] [address] Jul, [facility] [address] [id number] [address] [place] [address], [place] [address] Jul, [facility] [address] [id number] [address] [place] [address], [place] [address] Jul, [facility] [address] [id number] [address] [place] [address], [place] [address] Jul, [facility] [address] [id number] [address] [place] [address], [place] [address] Jul, [facility] [address] [id number] [address] [place] [address], [place] [address] Jul, [facility] [address] [id number] [address] [place] [address], [place] [address] Jul, [facility] [address] [id number] [address] [place] [address], [place] [address] Jul, [facility] [address] [id number] [address] [place] [address], [place] [address] Jul, [facility] [address] [id number] [address] [place] [address], [place] [address] Jul, [facility] [address] [id number] [address] [place] [address], [place] [address] Jul, [facility] [address] [id number] [address] [place] [address], [place] [address] Jul, [facility] [address] [id number] [address] [place] [address], [place] [address] Jul, [facility] [address] [id number] [address] [place] [address], [place] [address] Jul, [facility] [address] [id number] [address] [place] [address], [place] [address] Jul, [facility] [address] [id number] [address] [place] [address], [place] [address] Jun, [facility] [address] [id number] [address] [place] [address], [place] [address] Jun, [facility] [address] [id number] [address] [place] [address], [place] [address] Jun, [facility] [address] [id number] [address] [place] [address], [place] [address] Jun, [facility] [address] [id number] [address] [place] [address], [place] [address] Jun, [facility] [address] [id number] [address] [place] [address], [place] [address] Jun, [facility] [address] [id number] [address] [place] [address], [place] [address] Jun, [facility] [address] [id number] [address] [place] [address], [place] [address] Jun, [facility] [address] [id number] [address] [place] [address], [place] [address] Jun, [facility] [address] [id number] [address] [place] [address], [place] [address] Jun, [facility] [address] [id number] [address] [place] [address], [place] [address] Jun, [facility] [address] [id number] [address] [place] [address], [place] [address] Jun, [facility] [address] [id number] [address] [place] [address], [place] [address] Jun, [facility] [address] [id number] [address] [place] [address], [place] [address] Jun, [facility] [address] [id number] [address] [place] [address], [place] [address] 20 Jun, 2013 [facility] [address] [id number] [address] [place] [address], [place] [address] 18 Jun, 2013 [facility] [address] [id number] [address] [place] [address], [place] [address] 18 Jun, 2013 [facility] [address] [id number] [address] [place] [address], [place] [address] 17 Jun, 2013 [facility] [address] [id number] [address] [place] [address], [place] [address] 17 Jun, 2013 [facility] [address] [id number] [address] [place] [address], [place] [address] 13 Jun, 2013 [facility] [address] [id number] [address] [place] [address], [place] [address] 12 Jun, 2013 [facility] [address] [id number] [address] [place] [address], [place] [address] 12 Jun, 2013 [facility] [address] [id number] [address] [place] [address], [place] [address] 09 Jun, 2013 [facility] [address] [id number] [address] [place] [address], [place] [address] 05 Jun, 2013 [facility] [address] [id number] [address] [place] [address], [place] [address] 05 Jun, 2013 [facility] [address] [id number] [address] [place] [address], [place] [address] 04 Jun, 2013 [facility] [address] [id number] [address] [place] [address], [place] [address] 04 Jun, 2013 [facility] [address] [id number] [address] [place] [address], [place] [address] 17 May, 2013 [facility] [address] [id number] [address] [place] [address], [place] [address] 17 May, 2013 [facility] [address] [id number] [address] [place] [address], [place] [address] May, [facility] [address] [id number] [address] [place] [address], [place] [address] May, [facility] [address] [id number] [address] [place] [address], [place] [address] May, [facility] [address] [id number] [address] [place] [address], [place] [address] May, [facility] [address] [id number] [address] [place] [address], [place] [address] Apr, [facility] [address] [id number] [address] [place] [address], [place] [address] Apr, [facility] [address] [id number] [address] [place] [address], [place] [address] Apr, [facility] [address] [id number] [address] [place] [address], [place] [address] Apr, [facility] [address] [id number] [address] [place] [address], [place] [address] Apr, [facility] [address] [id number] [address] [place] [address], [place] [address] Apr, [facility] [address] [id number] [address] [place] [address], [place] [address] Apr, [facility] [address] [id number] [address] [place] [address], [place] [address] Apr, [facility] [address] [id number] [address] [place] [address], [place] [address] 26 Mar, 2013 [facility] [address] [id number] [address] [place] [address] [address] 24 Sep2012 [facility] [address] [id number] [address] [place] [address], [place] [address] 17 Mar, 2013 [facility] [address] [id number] [address] [place] [address], [place] [address] 17 Mar, 2013 [facility] [address] [id number] [address] [place] [address] [place] [address] 11 Mar, 2013 [facility] [address] [id number] [address] [place] [address], [place] [address] 10 Mar, 2013 [facility] [address] [id number] [address] [place] [address], [place] [address] 05 Mar, 2013 [facility] [address] [id number] [address] [place] [address], [place] [address] 04 Mar, 2013 [facility] [address] [id number] [address] [place] [address], [place] [address] 20 Jan, 2013 [facility] [address] [id number] [address] [place] [address], [place] [address] Jan, [facility] [address] [id number] [address] [place] [address], [place] [address] 14 Jan, 2013 [facility] [address] [id number] [address] [place] [address], [place] [address] Jan, [facility] [address] [id number] [address] [place] [address], [place] [address] Jan, [facility] [address] [id number] [address] [place] [address], [place] [address] Jan, [facility] [address] [id number] [address] [place] [address], [place] [address] Dec, [facility] [address] [id number] [address] [place] [address], [place] [address] Dec, [facility] [address] [id number] [address] [place] [address], [place] [address] Dec, [facility] [address] [id number] [address] [place] [address], [place] [address] Dec, [facility] [address] [id number] [address] [place] [address], [place] [address] Dec, [facility] [address] [id number] [address] [place] [address], [place] [address] 17 Dec, 2012 [facility] [address] [id number] [address] [place] [address], [place] [address] 16 Dec, 2012 [facility] [address] [id number] [address] [place] [address], [place] [address] 16 Dec, 2012 [facility] [address] [id number] [address] [place] [address], [place] [address] 15 Dec, 2012 [facility] [address] [id number] [address] [place] [address], [place] [address] 10 Dec, 2012 [facility] [address] [id number] [address] [place] [address], [place] [address] 28 Dec, 2012 [facility] [address] [id number] [address] [place] [address], [place] [address] Dec, [facility] [address] [id number] [address] [place] [address], [place] [address] Dec, [facility] [address] [id number] [address] [place] [address], [place] [address] Dec, [facility] [address] [id number] [address] [place] [address], [place] [address] Dec, [facility] [address] [id number] [address] [place] [address], [place] [address] Dec, [facility] [address] [id number] [address] [place] [address], [place] [address] October, [facility] [address] [id number] [address] [place] [address], [place] [address] October, [facility] [address] [id number] [address] [place] [address], [place] [address] October, [facility] [address] [id number] [address] [place] [address], [place] [address] October, [facility] [address] [id number] [address] [place] [address], [place] [address] October, [facility] [address] [id number] [address] [place] [address], [place] [address] October, [facility] [address] [id number] [address] [place] [address], [place] [address] October, [facility] [address] [id number] [address] [place] [address], [place] [address] Oct, [facility] [address] [id number] [address] [place] [address], [place] [address] Oct, [facility] [address] [id number] [address] [place] [address], [place] [address] Oct, [facility] [address] [id number] [address] [place] [address], [place] [address] Oct, [facility] [address] [id number] [address] [place] [address], [place] [address] Oct, [facility] [address] [id number] [address] [place] [address], [place] [address] Oct, [facility] [address] [id number] [address] [place] [address], [place] [address] Oct, [facility] [address] [id number] [address] [place] [address], [place] [address] 15 Oct, 2012 [facility] [address] [id number] [address] [place] [address], [place] [address] Oct, [facility] [address] [id number] [address] [place] [address], [place] [address] Oct, [facility] [address] [id number] [address] [place] [address], [place] [address] Oct, [facility] [address] [id number] [address] [place] [address], [place] [address] Oct, [facility] [address] [id number] [address] [place] [address], [place] [address] Aug, [facility] [address] [id number] [address] [place] [address], [place] [address] Aug, [facility] [address] [id number] [address] [place] [address], [place] [address] 12 Aug, 2012 [facility] [address] [id number] [address] [place] [address], [place] [address] 06 Aug, 2012 [facility] [address] [id number] [address] [place] [address], [place] [address] 05 Aug, 2012 [facility] [address] [id number] [address] [place] [address], [place] [address] 05 Aug, 2012 [facility] [address] [id number] [address] [place] [address], [place] [address] 20 Aug, 2012 [facility] [address] [id number] [address] [place] [address], [place] [address] 14 Aug, 2012 [facility] [address] [id number] [address] [place] [address], [place] [address] 12 Aug, 2012 [facility] [address] [id number] [address] [place] [address], [place] [address] Aug, [facility] [address] [id number] [address] [place] [address], [place] [address] Jul, [facility] [address] [id number] [address] [place] [address], [place] [address] Jul, [facility] [address] [id number] [address] [place] [address], [place] [address] Jul, [facility] [address] [id number] [address] [place] [address], [place] [address] Jun, [facility] [address] [id number] [address] [place] [address], [place] [address] Jun, [facility] [address] [id number] [address] [place] [address], [place] [address] Jun, [facility] [address] [id number] [address] [place] [address], [place] [address] Jun, [facility] [address] [id number] [address] [place] [address], [place] [address] Jun, [facility] [address] [id number] [address] [place] [address], [place] [address] 14 Jun, 2012 [facility] [address] [id number] [address] [place] [address], [place] [address] 14 Jun, 2012 [facility] [address] [id number] [address] [place] [address], [place] [address] 13 Jun, 2012 [facility] [address] [id number] [address] [place] [address], [place] [address] 13 Jun, 2012 [facility] [address] [id number] [address] [place] [address], [place] [address] 11 Jun, 2012 [facility] [address] [id number] [address] [place] [address], [place] [address] 11 Jun, 2012 [facility] [address] [id number] [address] [place] [address], [place] [address] 11 Jun, 2012 [facility] [address] [id number] [address] [place] [address], [place] [address] 11 Jun, 2012 [facility] [address] [id number] [address] [place] [address], [place] [address] 07 Jun, 2012 [facility] [address] [id number] [address] [place] [address], [place] [address] 07 Jun, 2012 [facility] [address] [id number] [address] [place] [address], [place] [address] 06 Jun, 2012 [facility] [address] [id number] [address] [place] [address], [place] [address] 06 Jun, 2012 [facility] [address] [id number] [address] [place] [address], [place] [address] Jun, [facility] [address] [id number] [address] [place] [address], [place] [address] 06 Jun, 2012 [facility] [address] [id number] [address] [place] [address], [place] [address] 05 Jun, 2012 [facility] [address] [id number] [address] [place] [address], [place] [address] Jun, [facility] [address] [id number] [address] [place] [address], [place] [address] Jun, [facility] [address] [id number] [address] [place] [address], [place] [address] Jun, [facility] [address] [id number] [address] [place] [address], [place] [address] May, [facility] [address] [id number] [address] [place] [address], [place] [address] May, [facility] [address] [id number] [address] [place] [address], [place] [address] May, [facility] [address] [id number] [address] [place] [address], [place] [address] May, [facility] [address] [id number] [address] [place] [address], [place] [address] May, [facility] [address] [id number] [address] [place] [address], [place] [address] May, [facility] [address] [id number] [address] [place] [address], [place] [address] May, [facility] [address] [id number] [address] [place] [address], [place] [address] May, [facility] [address] [id number] [address] [place] [address], [place] [address] Apr, [facility] [address] [id number] [address] [place] [address] Apr, [facility] [address] [id number] [address] [place] [address], [place] [address] Apr, [facility] [address] [id number] [address] [place] [address], [place] [address] Apr, [facility] [address] [id number] [address] [place] [address] Apr, [facility] [address] [id number] [address] [place] [address], [place] [address] Apr, [facility] [address] [id number] [address] [place] [address], [place] [address] Apr, [facility] [address] [id number] [address] [place] [address], [place] [address] Apr, [facility] [address] [id number] [address] [place] [address], [place] [address] Apr, [facility] [address] [id number] [address] [place] [address], [place] [address] Apr, [facility] [address] [id number] [address] [place] [address], [place] [address] Apr, [facility] [address] [id number] [address] [place] [address], [place] [address] Apr, [facility] [address] [id number] [address] [place] [address], [place] [address] Mar, [facility] [address] [id number] [address] [place] [address], [place] [address] 18 Mar, 2012 [facility] [address] [id number] [address] [place] [address] Mar, [facility] [address] [id number] [address] [place] [address] Mar, [facility] [address] [id number] [address] [place] [id number] Mar, [facility] [address] [id number] [address] [place] [id number] Mar, [facility] [address] [id number] [address] [place] [address], [place] [address] Mar, [facility] [address] [id number] [address] [place] [address], [place] [address] Jan, [facility] [address] [id number] [address] [place] [address] Jan, [facility] [address] [id number] [facility] [id number] Jan, [facility] [address] [id number] [facility] [id number] Jan, [facility] [address] [id number] [address] [place] [address], [place] [address] Jan, [facility] [address] [id number] [address] [place] [address], [place] [address] Jan, [facility] [address] [id number] [address] [place] [address], [place] [address] Jan, [facility] [address] [id number] [address] [place] [address], [place] [address] Jan, [facility] [address] [id number] [address] [place] [address], [place] [address] Jan, [facility] [address] [id number] [address] [place] [address], [place] [address] Jan, [facility] [address] [id number] [address] [place] [address], [place] [address] Jan, [facility] [address] [id number] [address] [place] [address], [place] [address] Dec, [facility] [address] [id number] [address] [place] [address], [place] [address] Dec, [facility] [address] [id number] [address] [place] [address], [place] [address] Dec, [facility] [address] [id number] [address] [place] [address], [place] [address] Dec, [facility] [address] [id number] [address] [place] [address], [place] [address] Dec, [facility] [address] [id number] [address] [place] [address], [place] [address] Dec, [facility] [address] [id number] [address] [place] [address] [place] [address] 18 Jan, 2012 [facility] [address] [id number] [address] [place] [address], [place] [address] 17 Jan, 2012 [facility] [address] [id number] [address] [place] [address], [place] [address] 16 Jan, 2012 [facility] [address] [id number] [address] [place] [address], [place] [address] 13 Jan, 2012 [facility] [address] [id number] [address] [place] [address], [place] [address] 13 Jan, 2012 [facility] [address] [id number] [address] [place] [address], [place] [address] 02 Jan, 2012 [facility] [address] [id number] [address] [place] [address], [place] [address] Dec, [facility] [address] [id number] [address] [place] [address], [place] [address] Dec, [facility] [address] [id number] [address] [place] [address], [place] [address] Dec, [facility] [address] [id number] [address] [place] [address], [place] [address] Dec, [facility] [address] [id number] [address] [place] [address], [place] [address] 15 Dec, 2011 [facility] [address] [id number] [address] [place] [address], [place] [address] Dec, [facility] [address] [id number] [address] [place] [address], [place] [address] Dec, [facility] [address] [id number] [address] [place] [address], [place] [address] October, [facility] [address] [id number] [address] [place] [address], [place] [address] October, [facility] [address] [id number] [address] [place] [address], [place] [address] October, [facility] [address] [id number] [address] [place] [address], [place] [address] October, [facility] [address] [id number] [address] [place] [address], [place] [address] October, [facility] [address] [id number] [address] [place] [address], [place] [address] October, [facility] [address] [id number] [address] [place] [address], [place] [address] Oct, [facility] [address] [id number] [address] [place] [address], [place] [address] 24 Oct, 2011 [facility] [address] [id number] [address] [place] [address], [place] [address] Oct, [facility] [address] [id number] [address] [place] [address], [place] [address] Oct, [facility] [address] [id number] [address] [place] [address], [place] [address] Oct, [facility] [address] [id number] [address] [place] [address], [place] [address] Oct, [facility] [address] [id number] [address] [place] [address], [place] [address] Oct, [facility] [address] [id number] [address] [place] [address], [place] [address] Aug, [facility] [address] [id number] [address] [place] [address], [place] [address] 29 Sep, 2011 [facility] [address] [id number] [address] [place] [address], [place] [address] 19 Sep, 2011 [facility] [address] [id number] [address] [place] [address], [place] [address] 13 Sep, 2011 [facility] [address] [id number] [address] [place] [address], [place] [address] 05 Sep, 2011 [facility] [address] [id number] [address] [place] [address], [place] [address] Aug, [facility] [address] [id number] [address] [place] [address], [place] [address] Aug, [facility] [address] [id number] [address] [place] [address], [place] [address] Aug, [facility] [address] [id number] [address] [place] [address], [place] [address] Aug, [facility] [address] [id number] [address] [place] [address], [place] [address] Jul, [facility] [address] [id number] [address] [place] [address], [place] [address] Jul, [facility] [address] [id number] [address] [place] [address], [place] [address] Jul, [facility] [address] [id number] [address] [place] [address], [place] [address] Jul, [facility] [address] [id number] [address] [place] [address], [place] [address] Jun, [facility] [address] [id number] [address] [place] [address], [place] [address] Jun, [facility] [address] [id number] [address] [place] [address], [place] [address] May, [facility] [address] [id number] [address] [place] [address], [place] [address] May, [facility] [address] [id number] [address] [place] [address], [place] [address] May, [facility] [address] [id number] [address] [place] [address], [place] [address] May, [facility] [address] [id number] [address] [place] [address], [place] [address] 07 May, 2011 [facility] [address] [id number] [address] [place] [address], [place] [address] Apr, [facility] [address] [id number] [address] [place] [address] Apr, [facility] [address] [id number] [address] [place] [address] Apr, [facility] [address] [id number] [address] [place] [address] Jan, [facility] [address] [id number] [address] [place] [address] Dec, [facility] [address] [id number] [address] [place] [address] October, [facility] [address] [id number] [address] [place] [address] Jun, [facility] [address] [id number] [address] [place] [address] Apr, [facility] [address] [id number] [address] [place] [address] Apr, [facility] [address] [id number] [address] [place] [address] Apr, [facility] [address] [id number] [address] [place] [address] Jun, IMMUNIZATIONS No Known Immunizations SOCIAL HISTORY Never Assessed REASON FOR VISIT [facility] [place] PLAN OF CARE VITAL SIGNS MEDICATIONS Unknown Medications RESULTS No Results PROCEDURES No Known procedures INSTRUCTIONS MEDICATIONS ADMINISTERED No Known Medications MEDICAL (GENERAL) HISTORY Type Description Date Medical History Psychiatric disorder Medical History Hard of hearing Surgical History Neofibrous tumor Surgical History back injection Hospitalization History Intestinal blockage Hospitalization History past psychiatric hospitalizations x2
--- OUTSIDE RECORDS SUMMARY | 2020-01-25 12:59 | XMS REPORT ---
Author Author Ana Mayer Doctor Organization [facility] Address Unknown Phone Unavailable Care Team Providers Care Color Tester Name Role Phone Migration, Doctor Unavailable Unavailable PROBLEMS Type Condition ICD9-CM Code CZO06-QU Code Onset Dates Condition S tatus SNOMED Code Problem Attention deficit R41.840 Active 76 073540 Problem Chronic hepatitis C without hepatic coma B18.2 Active 786382699 Problem Cannabis abuse F12.10 Active 92380 009 Problem Bipolar disorder, in partial remission, most rec ent episode hypomanic F31.71 Active 440445895 Problem Attention deficit hyperactivity disorder (ADHD), combi luciano type F90.2 Active 98047102 Problem Bipolar 1 disorder F31.9 Active 3 90095594 Problem H/O laminectomy Z98.89 Active 1616 38531 Problem Other chronic pain G89.29 Active 8 7501558 Problem Anxiety disorder, unspecified type F41.9 Active [id number] ALLERGIES No Information ENCOUNTERS Encounter Location Date Diagnosis [facility] [address] [facility] [id number] [address] [place] [id number] Oct, [facility] [address] [facility] [id number] [address] [place] [id number] Aug, Bipolar disorder, in partial remission, most recent episode hypomanic F31.71 ; Attention deficit hyperactivity disorder (ADHD), combined type F90.2 and Anxiety disorder, unspecified type F41.9 [facility] [address] [facility] [id number] [address] [place] [phone] Aug, [facility] [address] [facility] [id number] [address] [place] [phone] Aug, Bipolar disorder, in partial remission, most recent episode hypomanic F31.71 [facility] [address] [facility] [id number] [address] [place] [id number] Aug, [facility] [address] [id number] [address] [place] [phone] Aug, Bipolar disorder, in partial remission, most recent episode hypomanic F31.71 [facility] [address] [id number] [address] [place] [id number] Aug, Bipolar disorder, in partial remission, most recent episode hypomanic F31.71 ; Attention deficit hyperactivity disorder (ADHD), combined type F90.2 and Anxiety disorder, unspecified type F41.9 [facility] [address] [id number] [address] [place] [phone] Aug, Low back pain M54.5 and Pain in left wrist M25.532 [facility] [address] [id number] [address] [place] [id number] Aug, [facility] [address] [id number] [address] [place] [phone] Jun, [facility] [address] [facility] [id number] [address] [place] [phone] Apr, Bipolar disorder, in partial remission, most recent episode hypomanic F31.71 [facility] [address] [id number] [address] [place] [phone] Apr, [facility] [address] [id number] [address] [place] [phone] Apr, Bipolar disorder, in partial remission, most recent episode hypomanic F31.71 ; Attention deficit hyperactivity disorder (ADHD), combined type F90.2 ; Anxiety disorder, unspecified type F41.9 and Other penitentiary (current) 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 Z79.899 [facility] [address] [id number] [address] [place] [id number] Apr, Bipolar disorder, in partial remission, most recent episode hypomanic F31.71 [facility] [address] [id number] [address] [place] [id number] Apr, Bipolar disorder, in partial remission, most recent episode hypomanic F31.71 [facility] [address] [facility] [id number] [address] [place] [id number] Mar, [facility] [address] [id number] [address] [place] [id number] Mar, Bipolar disorder, in partial remission, most recent episode hypomanic F31.71 ; Encounter for immunization Z23 and Low back pain M54.5 [facility] [address] [id number] [address] [place] [id number] Mar, Bipolar disorder, in partial remission, most recent episode hypomanic F31.71 [facility] [address] [id number] [address] [place] [id number] Mar, Bipolar disorder, in partial remission, most recent episode hypomanic F31.71 [facility] [address] [facility] [id number] [address] [place] [phone] Jan, Bipolar disorder, in partial remission, most recent episode hypomanic F31.71 [facility] [address] [facility] [id number] [address] [place] [id number] Jan, Bipolar disorder, in partial remission, most recent episode hypomanic F31.71 [facility] [address] [facility] [id number] [address] [place] [id number] Dec, Bipolar disorder, in partial remission, most recent episode hypomanic F31.71 [facility] [address] [facility] [id number] [address] [place] [id number] Dec, Bipolar disorder, in partial remission, most recent episode hypomanic F31.71 ; Attention deficit hyperactivity disorder (ADHD), combined type F90.2 ; Anxiety disorder, unspecified type F41.9 and Other penitentiary (current) 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 Z79.899 [facility] [address] [facility] [id number] [address] [place] [id number] Dec, Bipolar disorder, in partial remission, most recent episode hypomanic F31.71 [facility] [address] [facility] [id number] [address] [place] [phone] Dec, Bipolar disorder, in partial remission, most recent episode hypomanic F31.71 [facility] [address] [id number] [address] [place] [id number] October, Bipolar disorder, in partial remission, most recent episode hypomanic F31.71 [facility] [address] [id number] [address] [place] [phone] October, [facility] [address] [id number] [address] [place] [id number] October, [facility] [address] [id number] [address] [place] [phone] Oct, Bipolar disorder, in partial remission, most recent episode hypomanic F31.71 ; Attention deficit hyperactivity disorder (ADHD), combined type F90.2 ; Anxiety disorder, unspecified type F41.9 and Encounter for drug screening Z02.83 [facility] [address] [id number] [address] [place] [id number] Oct, Bipolar disorder, in partial remission, most recent episode hypomanic F31.71 [facility] [address] [id number] [address] [place] [phone] Oct, Bipolar disorder, in partial remission, most recent episode hypomanic F31.71 [facility] [address] [id number] [address] [place] [id number] Aug, Bipolar disorder, in partial remission, most recent episode hypomanic F31.71 [facility] [address] [id number] [address] [place] [id number] Aug, Bipolar disorder, in partial remission, most recent episode hypomanic F31.71 [facility] [address] [id number] [address] [place] [phone] Aug, Bipolar disorder, in partial remission, most recent episode hypomanic F31.71 [facility] [address] [id number] [address] [place] [id number] Jul, Bipolar disorder, in partial remission, most recent episode hypomanic F31.71 ; Attention deficit hyperactivity disorder (ADHD), combined type F90.2 and Anxiety disorder, unspecified type F41.9 [facility] [address] [id number] [address] [place] [id number] Jul, Bipolar disorder, in partial remission, most recent episode hypomanic F31.71 [facility] [address] [id number] [address] [place] [phone] Jun, Bipolar disorder, in partial remission, most recent episode hypomanic F31.71 [facility] [address] [id number] [address] [place] [id number] May, Bipolar disorder, in partial remission, most recent episode hypomanic F31.71 [facility] [address] [facility] [id number] [address] [place] [id number] May, Bipolar disorder, in partial remission, most recent episode hypomanic F31.71 [facility] [address] [facility] [id number] [address] [place] [phone] Apr, [facility] [address] [id number] [address] [place] [phone] Apr, Bipolar disorder, in partial remission, most recent episode hypomanic F31.71 ; Attention deficit hyperactivity disorder (ADHD), combined type F90.2 ; Anxiety disorder, unspecified type F41.9 and Cannabis abuse F12.10 [facility] [address] [id number] [address] [place] [id number] Apr, Attention deficit hyperactiv ity disorder (ADHD), combined type F90.2 [facility] [address] [id number] [address] [place] [phone] Mar, Attention deficit hyperactiv ity disorder (ADHD), combined type F90.2 [facility] [address] [facility] [id number] [address] [place] [phone] Mar, Anxiety disorder, unspecifie d type F41.9 [facility] [address] [facility] [id number] [address] [place] [id number] Jan, Attention deficit hyperactiv ity disorder (ADHD), combined type F90.2 [facility] [address] [facility] [id number] [address] [place] [phone] Jan, Anxiety disorder, unspecifie d type F41.9 [facility] [address] [facility] [id number] [address] [place] [phone] Jan, Other chronic pain G89.29 ; Chronic hepatitis C without hepatic coma B18.2 and Bipolar 1 disorder F31.9 [facility] [address] [facility] [id number] [address] [place] [id number] Dec, Attention deficit hyperactiv ity disorder (ADHD), combined type F90.2 [facility] [address] [facility] [id number] [address] [place] [id number] Dec, Bipolar disorder, in partial remission, most recent episode hypomanic F31.71 ; Attention deficit hyperactivity disorder (ADHD), combined type F90.2 and Anxiety disorder, unspecified type F41.9 [facility] [address] [facility] [id number] [address] [place] [id number] Dec, Bipolar disorder, in partial remission, most recent episode hypomanic F31.71 ; Attention deficit hyperactivity disorder (ADHD), combined type F90.2 and Anxiety disorder, unspecified type F41.9 [facility] [address] [facility] [id number] [address] [place] [id number] Dec, Bipolar 1 disorder F31.9 and Attention deficit R41.840 [facility] [address] [facility] [id number] [address] [place] [phone] Oct, Other chronic pain G89.29 ; Alopecia L65.9 and Screening, lipid Z13.220 [facility] [address] [facility] [id number] [address] [place] [id number] Oct, [place] [address] [facility] [id number] [address] [place] [phone] Aug, [facility] [address] [facility] [id number] [address] [place] [id number] Aug, Eustachian tube dysfunction, right H69.81 ; Vertigo R42 and Other chronic pain G89.29 [facility] [address] [id number] [address] [place] [phone] Aug, [facility] [address] [id number] [address] [place] [phone] Jun, [facility] [address] [id number] [address] [place] [phone] Jun, Low back pain M54.5 and Othe r chronic pain G89.29 [facility] [address] [id number] [address] [place] [phone] Jun, [facility] [address] [id number] [address] [place] [id number] May, [facility] [address] [id number] [address] [place] [id number] Jan, [facility] [address] [id number] [address] [place] [phone] Dec, [facility] [address] [id number] [address] [place] [phone] Dec, [facility] [address] [id number] [address] [place] [phone] Jun, [facility] [address] [id number] [address] [place] [id number] Apr, Eustachian tube dysfunction, unspecified laterality H69.80 ; Hot flashes N95.1 and Encounter for immunization Z23 [facility] [address] [id number] [address] [place] [phone] Jan, [facility] [address] [id number] [address] [place] [phone] Jan, [facility] [address] [id number] [address] [place] [phone] Jan, [facility] [address] [id number] [address] [place] [phone] Jan, [facility] [address] [id number] [address] [place] [phone] Jan, Encounter to establish care V65.8 ; Bipolar 1 disorder 296.7 ; Abdominal pain 789.00 ; Constipation 564.00 ; Hard of hearing 389.9 and Drug abuse 305.90 [facility] [address] [id number] [address] [place] [id number] Dec, [facility] [address] [id number] [address] [place] [phone] October, [facility] [address] [id number] [address] [place] [id number] October, [facility] [address] [id number] [address] [place] [phone] Oct, [facility] [address] [id number] [address] [place] [phone] Oct, [facility] [address] [id number] [address] [place] [id number] Oct, [facility] [address] [id number] [address] [place] [phone] Aug, [facility] [address] [id number] [address] [place] [phone] Aug, [facility] [address] [id number] [address] [place] [id number] Aug, [facility] [address] [id number] [address] [place] [phone] Aug, [facility] [address] [id number] [address] [place] [phone] Aug, [facility] [address] [id number] [address] [place] [phone] Aug, [facility] [address] [id number] [address] [place] [address], [place] [address] Aug, 2014 [facility] [address] [id number] [address] [place] [address], [place] [address] Aug, 2014 [facility] [address] [id number] [address] [place] [address], [place] [address] Aug, 2014 [facility] [address] [id number] [address] [place] [address], [place] [address] Aug, 2014 [facility] [address] [id number] [address] [place] [address], [place] [address] Aug, 2014 [facility] [address] [id number] [address] [place] [address], [place] [address] Aug, 2014 [facility] [address] [id number] [address] [place] [address], [place] [address] Aug, 2014 [facility] [address] [id number] [address] [place] [address], [place] [address] Aug, 2014 [facility] [address] [id number] [address] [place] [address], [place] [address] Aug, [facility] [address] [id number] [address] [place] [address], [place] [address] Jul, [facility] [address] [id number] [address] [place] [address], [place] [address] Jul, [facility] [address] [id number] [address] [place] [address], [place] [address] Jul, [facility] [address] [id number] [address] [place] [address], [place] [address] Jul, [facility] [address] [id number] [address] [place] [address], [place] [address] Jul, [facility] [address] [id number] [address] [place] [address], [place] [address] Jul, [facility] [address] [id number] [address] [place] [address], [place] [address] Jul, [facility] [address] [id number] [address] [place] [address], [place] [address] Jul, [facility] [address] [id number] [address] [place] [address], [place] [address] Jun, [facility] [address] [id number] [address] [place] [address], [place] [address] Jun, [facility] [address] [id number] [address] [place] [address], [place] [address] Jun, [facility] [address] [id number] [address] [place] [address], [place] [address] Jun, [facility] [address] [id number] [address] [place] [address], [place] [address] Jun, [facility] [address] [id number] [address] [place] [address], [place] [address] Jun, [facility] [address] [id number] [address] [place] [address], [place] [address] Jun, [facility] [address] [id number] [address] [place] [address], [place] [address] Jun, [facility] [address] [id number] [address] [place] [address], [place] [address] Jun, [facility] [address] [id number] [address] [place] [address], [place] [address] Jun, [facility] [address] [id number] [address] [place] [address], [place] [address] Jun, [facility] [address] [id number] [address] [place] [address], [place] [address] May, [facility] [address] [id number] [address] [place] [address], [place] [address] May, [facility] [address] [id number] [address] [place] [address], [place] [address] May, [facility] [address] [id number] [address] [place] [address], [place] [address] May, [facility] [address] [id number] [address] [place] [address], [place] [address] May, [facility] [address] [id number] [address] [place] [address], [place] [address] May, [facility] [address] [id number] [address] [place] [address], [place] [address] May, [facility] [address] [id number] [address] [place] [address], [place] [address] Apr, [facility] [address] [id number] [address] [place] [address], [place] [address] Apr, [facility] [address] [id number] [address] [place] [address], [place] [address] Apr, [facility] [address] [id number] [address] [place] [address], [place] [address] Apr, [facility] [address] [id number] [address] [place] [address], [place] [address] Apr, [facility] [address] [id number] [address] [place] [address], [place] [address] Apr, [facility] [address] [id number] [address] [place] [address], [place] [address] Mar, [facility] [address] [id number] [address] [place] [address], [place] [address] 29 Mar, 2013 [facility] [address] [id number] [address] [place] [address], [place] [address] 10 Mar, 2013 [facility] [address] [id number] [address] [place] [address], [place] [address] 10 Mar, 2013 [facility] [address] [id number] [address] [place] [address], [place] [address] Mar, 2013 [facility] [address] [id number] [address] [place] [address], [place] [address] Mar, [facility] [address] [id number] [address] [place] [address], [place] [address] Jan, [facility] [address] [id number] [address] [place] [address], [place] [address] Jan, [facility] [address] [id number] [address] [place] [address], [place] [address] Jan, [facility] [address] [id number] [address] [place] [address], [place] [address] Jan, [facility] [address] [id number] [address] [place] [address], [place] [address] Dec, [facility] [address] [id number] [address] [place] [address], [place] [address] Dec, [facility] [address] [id number] [address] [place] [address], [place] [address] Dec, [facility] [address] [id number] [address] [place] [address], [place] [address] Dec, [facility] [address] [id number] [address] [place] [address], [place] [address] Dec, [facility] [address] [id number] [address] [place] [address], [place] [address] Dec, [facility] [address] [id number] [address] [place] [address], [place] [address] Dec, [facility] [address] [id number] [address] [place] [address], [place] [address] Dec, [facility] [address] [id number] [address] [place] [address], [place] [address] Dec, [facility] [address] [id number] [address] [place] [address], [place] [address] Dec, [facility] [address] [id number] [address] [place] [address], [place] [address] Dec, [facility] [address] [id number] [address] [place] [address], [place] [address] Dec, [facility] [address] [id number] [address] [place] [address], [place] [address] October, [facility] [address] [id number] [address] [place] [address], [place] [address] October, [facility] [address] [id number] [address] [place] [address], [place] [address] October, [facility] [address] [id number] [address] [place] [address], [place] [address] October, [facility] [address] [id number] [address] [place] [address], [place] [address] October, [facility] [address] [id number] [address] [place] [address], [place] [address] October, [facility] [address] [id number] [address] [place] [address], [place] [address] Oct, [facility] [address] [id number] [address] [place] [address], [place] [address] Oct, [facility] [address] [id number] [address] [place] [address], [place] [address] Oct, [facility] [address] [id number] [address] [place] [address], [place] [address] Oct, [facility] [address] [id number] [address] [place] [address], [place] [address] Oct, [facility] [address] [id number] [address] [place] [address], [place] [address] Oct, [facility] [facility] [address] [id number] [address] [place] [address], [place] [address] Oct, [facility] [address] [id number] [address] [place] [address], [place] [address] Oct, [facility] [address] [id number] [address] [place] [address], [place] [address] Oct, [facility] [address] [id number] [facility] [place] [address] 09 Oct, 2013 [facility] [address] [id number] [facility] [place] [address] Oct, [facility] [address] [id number] [address] [place] [address], [place] [address] Oct, [facility] [address] [id number] [address] [place] [address], [place] [address] Aug, [facility] [address] [id number] [address] [place] [address], [place] [address] Aug, [facility] [address] [id number] [address] [place] [address], [place] [address] Aug, [facility] [address] [id number] [address] [place] [address], [place] [address] Aug, [facility] [address] [id number] [address] [place] [address], [place] [address] Aug, [facility] [address] [id number] [address] [place] [address], [place] [address] 05 Aug, 2013 [facility] [address] [id number] [address] [place] [address], [place] [address] Aug, [facility] [address] [id number] [address] [place] [address], [place] [address] Aug, [facility] [address] [id number] [address] [place] [address], [place] [address] Aug, [facility] [address] [id number] [address] [place] [address], [place] [address] Aug, [facility] [address] [id number] [address] [place] [address], [place] [address] Aug, [facility] [address] [id number] [address] [place] [address], [place] [address] Aug, [facility] [address] [id number] [address] [place] [address], [place] [address] Aug, [facility] [address] [id number] [address] [place] [address], [place] [address] 20 Aug, 2013 [facility] [address] [id number] [address] [place] [address], [place] [address] 14 Aug, 2013 [facility] [address] [id number] [address] [place] [address], [place] [address] 14 Aug, 2013 [facility] [address] [id number] [address] [place] [address], [place] [address] 14 Aug, 2013 [facility] [address] [id number] [address] [place] [address], [place] [address] 14 Aug, 2013 [facility] [address] [id number] [address] [place] [address], [place] [address] 07 Aug, 2013 [facility] [address] [id number] [address] [place] [address], [place] [address] 07 Aug, 2013 [facility] [address] [id number] [address] [place] [address], [place] [address] 06 Aug, 2013 [facility] [address] [id number] [address] [place] [address], [place] [address] 06 Aug, 2013 [facility] [address] [id number] [address] [place] [address], [place] [address] 04 Aug, 2013 [facility] [address] [id number] [address] [place] [address], [place] [address] 04 Aug, 2013 [facility] [address] [id number] [address] [place] [address], [place] [address] Aug, [facility] [address] [id number] [address] [place] [address], [place] [address] Jul, [facility] [address] [id number] [address] [place] [address], [place] [address] Jul, [facility] [address] [id number] [address] [place] [address], [place] [address] Jul, [facility] [address] [id number] [address] [place] [address], [place] [address] Jul, [facility] [address] [id number] [address] [place] [address], [place] [address] Jul, [facility] [address] [id number] [address] [place] [address], [place] [address] Jul, [facility] [address] [id number] [address] [place] [address], [place] [address] Jul, [facility] [address] [id number] [address] [place] [address], [place] [address] Jul, [facility] [address] [id number] [address] [place] [address], [place] [address] Jul, [facility] [address] [id number] [address] [place] [address], [place] [address] Jul, [facility] [address] [id number] [address] [place] [address], [place] [address] Jul, [facility] [address] [id number] [address] [place] [address], [place] [address] Jul, [facility] [address] [id number] [address] [place] [address], [place] [address] Jul, [facility] [address] [id number] [address] [place] [address], [place] [address] Jul, [facility] [address] [id number] [address] [place] [address], [place] [address] Jul, [facility] [address] [id number] [address] [place] [address], [place] [address] Jul, [facility] [address] [id number] [address] [place] [address], [place] [address] Jul, [facility] [address] [id number] [address] [place] [address], [place] [address] Jul, [facility] [address] [id number] [address] [place] [address], [place] [address] Jul, [facility] [address] [id number] [address] [place] [address], [place] [address] Jul, [facility] [address] [id number] [address] [place] [address], [place] [address] Jun, [facility] [address] [id number] [address] [place] [address], [place] [address] Jun, [facility] [address] [id number] [address] [place] [address], [place] [address] Jun, [facility] [address] [id number] [address] [place] [address], [place] [address] Jun, [facility] [address] [id number] [address] [place] [address], [place] [address] Jun, [facility] [address] [id number] [address] [place] [address], [place] [address] Jun, [facility] [address] [id number] [address] [place] [address], [place] [address] Jun, [facility] [address] [id number] [address] [place] [address], [place] [address] Jun, [facility] [address] [id number] [address] [place] [address], [place] [address] Jun, [facility] [address] [id number] [address] [place] [address], [place] [address] Jun, [facility] [address] [id number] [address] [place] [address], [place] [address] Jun, [facility] [address] [id number] [address] [place] [address], [place] [address] Jun, [facility] [address] [id number] [address] [place] [address], [place] [address] Jun, [facility] [address] [id number] [address] [place] [address], [place] [address] Jun, [facility] [address] [id number] [address] [place] [address], [place] [address] 20 Jun, 2013 [facility] [address] [id number] [address] [place] [address], [place] [address] 18 Jun, 2013 [facility] [address] [id number] [address] [place] [address], [place] [address] 18 Jun, 2013 [facility] [address] [id number] [address] [place] [address], [place] [address] 17 Jun, 2013 [facility] [address] [id number] [address] [place] [address], [place] [address] 17 Jun, 2013 [facility] [address] [id number] [address] [place] [address], [place] [address] 13 Jun, 2013 [facility] [address] [id number] [address] [place] [address], [place] [address] 12 Jun, 2013 [facility] [address] [id number] [address] [place] [address], [place] [address] 12 Jun, 2013 [facility] [address] [id number] [address] [place] [address], [place] [address] 09 Jun, 2013 [facility] [address] [id number] [address] [place] [address], [place] [address] 05 Jun, 2013 [facility] [address] [id number] [address] [place] [address], [place] [address] 05 Jun, 2013 [facility] [address] [id number] [address] [place] [address], [place] [address] 04 Jun, 2013 [facility] [address] [id number] [address] [place] [address], [place] [address] 04 Jun, 2013 [facility] [address] [id number] [address] [place] [address], [place] [address] 17 May, 2013 [facility] [address] [id number] [address] [place] [address], [place] [address] 17 May, 2013 [facility] [address] [id number] [address] [place] [address], [place] [address] May, [facility] [address] [id number] [address] [place] [address], [place] [address] May, [facility] [address] [id number] [address] [place] [address], [place] [address] May, [facility] [address] [id number] [address] [place] [address], [place] [address] May, [facility] [address] [id number] [address] [place] [address], [place] [address] Apr, [facility] [address] [id number] [address] [place] [address], [place] [address] Apr, [facility] [address] [id number] [address] [place] [address], [place] [address] Apr, [facility] [address] [id number] [address] [place] [address], [place] [address] Apr, [facility] [address] [id number] [address] [place] [address], [place] [address] Apr, [facility] [address] [id number] [address] [place] [address], [place] [address] Apr, [facility] [address] [id number] [address] [place] [address], [place] [address] Apr, [facility] [address] [id number] [address] [place] [address], [place] [address] Apr, [facility] [address] [id number] [address] [place] [address], [place] [address] 26 Mar, 2013 [facility] [address] [id number] [address] [place] [address], [place] [address] 24 Sep2012 [facility] [address] [id number] [address] [place] [address], [place] [address] 17 Mar, 2013 [facility] [address] [id number] [address] [place] [address], [place] [address] 17 Mar, 2013 [facility] [address] [id number] [address] [place] [address] [place] [address] 11 Mar, 2013 [facility] [address] [id number] [address] [place] [address], [place] [address] 10 Mar, 2013 [facility] [address] [id number] [address] [place] [address], [place] [address] 05 Mar, 2013 [facility] [address] [id number] [address] [place] [address], [place] [address] 04 Mar, 2013 [facility] [address] [id number] [address] [place] [address], [place] [address] 20 Jan, 2013 [facility] [address] [id number] [address] [place] [address], [place] [address] Jan, [facility] [address] [id number] [address] [place] [address], [place] [address] 14 Jan, 2013 [facility] [address] [id number] [address] [place] [address], [place] [address] Jan, [facility] [address] [id number] [address] [place] [address], [place] [address] Jan, [facility] [address] [id number] [address] [place] [address], [place] [address] Jan, [facility] [address] [id number] [address] [place] [address], [place] [address] Dec, [facility] [address] [id number] [address] [place] [address], [place] [address] Dec, [facility] [address] [id number] [address] [place] [address], [place] [address] Dec, [facility] [address] [id number] [address] [place] [address], [place] [address] Dec, [facility] [address] [id number] [address] [place] [address], [place] [address] Dec, [facility] [address] [id number] [address] [place] [address], [place] [address] 17 Dec, 2012 [facility] [address] [id number] [address] [place] [address], [place] [address] 16 Dec, 2012 [facility] [address] [id number] [address] [place] [address], [place] [address] 16 Dec, 2012 [facility] [address] [id number] [address] [place] [address], [place] [address] 15 Dec, 2012 [facility] [address] [id number] [address] [place] [address], [place] [address] 10 Dec, 2012 [facility] [address] [id number] [address] [place] [address], [place] [address] 28 Dec, 2012 [facility] [address] [id number] [address] [place] [address], [place] [address] Dec, [facility] [address] [id number] [address] [place] [address], [place] [address] Dec, [facility] [address] [id number] [address] [place] [address], [place] [address] Dec, [facility] [address] [id number] [address] [place] [address], [place] [address] Dec, [facility] [address] [id number] [address] [place] [address], [place] [address] Dec, [facility] [address] [id number] [address] [place] [address], [place] [address] October, [facility] [address] [id number] [address] [place] [address], [place] [address] October, [facility] [address] [id number] [address] [place] [address], [place] [address] October, [facility] [address] [id number] [address] [place] [address], [place] [address] October, [facility] [address] [id number] [address] [place] [address], [place] [address] October, [facility] [address] [id number] [address] [place] [address], [place] [address] October, [facility] [address] [id number] [address] [place] [address], [place] [address] October, [facility] [address] [id number] [address] [place] [address], [place] [address] Oct, [facility] [address] [id number] [address] [place] [address], [place] [address] Oct, [facility] [address] [id number] [address] [place] [address], [place] [address] Oct, [facility] [address] [id number] [address] [place] [address], [place] [address] Oct, [facility] [address] [id number] [address] [place] [address], [place] [address] Oct, [facility] [address] [id number] [address] [place] [address], [place] [address] Oct, [facility] [address] [id number] [address] [place] [address], [place] [address] Oct, [facility] [address] [id number] [address] [place] [address], [place] [address] 15 Oct, 2012 [facility] [address] [id number] [address] [place] [address], [place] [address] Oct, [facility] [address] [id number] [address] [place] [address], [place] [address] Oct, [facility] [address] [id number] [address] [place] [address], [place] [address] Oct, [facility] [address] [id number] [address] [place] [address], [place] [address] Oct, [facility] [address] [id number] [address] [place] [address], [place] [address] Aug, [facility] [address] [id number] [address] [place] [address], [place] [address] Aug, [facility] [address] [id number] [address] [place] [address], [place] [address] 12 Aug, 2012 [facility] [address] [id number] [address] [place] [address], [place] [address] 06 Aug, 2012 [facility] [address] [id number] [address] [place] [address], [place] [address] 05 Aug, 2012 [facility] [address] [id number] [address] [place] [address], [place] [address] 05 Aug, 2012 [facility] [address] [id number] [address] [place] [address], [place] [address] 20 Aug, 2012 [facility] [address] [id number] [address] [place] [address], [place] [address] 14 Aug, 2012 [facility] [address] [id number] [address] [place] [address], [place] [address] 12 Aug, 2012 [facility] [address] [id number] [address] [place] [address], [place] [address] Aug, [facility] [address] [id number] [address] [place] [address], [place] [address] Jul, [facility] [address] [id number] [address] [place] [address], [place] [address] Jul, [facility] [address] [id number] [address] [place] [address], [place] [address] Jul, [facility] [address] [id number] [address] [place] [address], [place] [address] Jun, [facility] [address] [id number] [address] [place] [address], [place] [address] Jun, [facility] [address] [id number] [address] [place] [address], [place] [address] Jun, [facility] [address] [id number] [address] [place] [address], [place] [address] Jun, [facility] [address] [id number] [address] [place] [address], [place] [address] Jun, [facility] [address] [id number] [address] [place] [address], [place] [address] 14 Jun, 2012 [facility] [address] [id number] [address] [place] [address], [place] [address] 14 Jun, 2012 [facility] [address] [id number] [address] [place] [address], [place] [address] 13 Jun, 2012 [facility] [address] [id number] [address] [place] [address], [place] [address] 13 Jun, 2012 [facility] [address] [id number] [address] [place] [address], [place] [address] 11 Jun, 2012 [facility] [address] [id number] [address] [place] [address], [place] [address] 11 Jun, 2012 [facility] [address] [id number] [address] [place] [address], [place] [address] 11 Jun, 2012 [facility] [address] [id number] [address] [place] [address], [place] [address] 11 Jun, 2012 [facility] [address] [id number] [address] [place] [address], [place] [address] 07 Jun, 2012 [facility] [address] [id number] [address] [place] [address], [place] [address] 07 Jun, 2012 [facility] [address] [id number] [address] [place] [address], [place] [address] 06 Jun, 2012 [facility] [address] [id number] [address] [place] [address], [place] [address] 06 Jun, 2012 [facility] [address] [id number] [address] [place] [address], [place] [address] Jun, [facility] [address] [id number] [address] [place] [address], [place] [address] 06 Jun, 2012 [facility] [address] [id number] [address] [place] [address], [place] [address] 05 Jun, 2012 [facility] [address] [id number] [address] [place] [address], [place] [address] Jun, [facility] [address] [id number] [address] [place] [address], [place] [address] Jun, [facility] [address] [id number] [address] [place] [address], [place] [address] Jun, [facility] [address] [id number] [address] [place] [address], [place] [address] May, [facility] [address] [id number] [address] [place] [address], [place] [address] May, [facility] [address] [id number] [address] [place] [address], [place] [address] May, [facility] [address] [id number] [address] [place] [address], [place] [address] May, [facility] [address] [id number] [address] [place] [address], [place] [address] May, [facility] [address] [id number] [address] [place] [address], [place] [address] May, [facility] [address] [id number] [address] [place] [address], [place] [address] May, [facility] [address] [id number] [address] [place] [address], [place] [address] May, [facility] [address] [id number] [address] [place] [address], [place] [address] Apr, [facility] [address] [id number] [address] [place] [address] Apr, [facility] [address] [id number] [address] [place] [address], [place] [address] Apr, [facility] [address] [id number] [address] [place] [address], [place] [address] Apr, [facility] [address] [id number] [address] [place] [address] Apr, [facility] [address] [id number] [address] [place] [address], [place] [address] Apr, [facility] [address] [id number] [address] [place] [address], [place] [address] Apr, [facility] [address] [id number] [address] [place] [address], [place] [address] Apr, [facility] [address] [id number] [address] [place] [address], [place] [address] Apr, [facility] [address] [id number] [address] [place] [address], [place] [address] Apr, [facility] [address] [id number] [address] [place] [address], [place] [address] Apr, [facility] [address] [id number] [address] [place] [address], [place] [address] Apr, [facility] [address] [id number] [address] [place] [address], [place] [address] Mar, [facility] [address] [id number] [address] [place] [address], [place] [address] 18 Mar, 2012 [facility] [facility] [address] [id number] [address] [place] [id number] Mar, [facility] [address] [id number] [address] [place] [id number] Mar, [facility] [address] [id number] [address] [place] [id number] Mar, [facility] [address] [id number] [address] [place] [id number] Mar, [facility] [address] [id number] [address] [place] [address], [place] [address] Mar, [facility] [address] [id number] [address] [place] [address], [place] [address] Jan, [facility] [address] [id number] [address] [place] [id number] Jan, [facility] [address] [id number] [facility] [place] [id number] Jan, [facility] [address] [id number] [facility] [id number] Jan, [facility] [address] [id number] [address] [place] [address], [place] [address] Jan, [facility] [address] [id number] [address] [place] [address], [place] [address] Jan, [facility] [address] [id number] [address] [place] [address], [place] [address] Jan, [facility] [address] [id number] [address] [place] [address], [place] [address] Jan, [facility] [address] [id number] [address] [place] [address], [place] [address] Jan, [facility] [address] [id number] [address] [place] [address], [place] [address] Jan, [facility] [address] [id number] [address] [place] [address], [place] [address] Jan, [facility] [address] [id number] [address] [place] [address], [place] [address] Dec, [facility] [address] [id number] [address] [place] [address], [place] [address] Dec, [facility] [address] [id number] [address] [place] [address], [place] [address] Dec, [facility] [address] [id number] [address] [place] [address], [place] [address] Dec, [facility] [address] [id number] [address] [place] [address], [place] [address] Dec, [facility] [address] [id number] [address] [place] [address], [place] [address] Dec, [facility] [address] [id number] [address] [place] [address] [place] [id number] 18 Jan, 2012 [facility] [address] [id number] [address] [place] [address], [place] [address] 17 Jan, 2012 [facility] [address] [id number] [address] [place] [address], [place] [address] 16 Jan, 2012 [facility] [address] [id number] [address] [place] [address], [place] [address] 13 Jan, 2012 [facility] [address] [id number] [address] [place] [address], [place] [address] 13 Jan, 2012 [facility] [address] [id number] [address] [place] [address], [place] [address] 02 Jan, 2012 [facility] [address] [id number] [address] [place] [address], [place] [address] Dec, [facility] [address] [id number] [address] [place] [address], [place] [address] Dec, [facility] [address] [id number] [address] [place] [address], [place] [address] Dec, [facility] [address] [id number] [address] [place] [address], [place] [address] Dec, [facility] [address] [id number] [address] [place] [address], [place] [address] 15 Dec, 2011 [facility] [address] [id number] [address] [place] [address], [place] [address] Dec, [facility] [address] [id number] [address] [place] [address], [place] [address] Dec, [facility] [address] [id number] [address] [place] [address], [place] [address] October, [facility] [address] [id number] [address] [place] [address], [place] [address] October, [facility] [address] [id number] [address] [place] [address], [place] [address] October, [facility] [address] [id number] [address] [place] [address], [place] [address] October, [facility] [address] [id number] [address] [place] [address], [place] [address] October, [facility] [address] [id number] [address] [place] [address], [place] [address] October, [facility] [address] [id number] [address] [place] [address], [place] [address] Oct, [facility] [address] [id number] [address] [place] [address], [place] [address] 24 Oct, 2011 [facility] [address] [id number] [address] [place] [address], [place] [address] Oct, [facility] [address] [id number] [address] [place] [address], [place] [address] Oct, [facility] [address] [id number] [address] [place] [address], [place] [address] Oct, [facility] [address] [id number] [address] [place] [address], [place] [address] Oct, [facility] [address] [id number] [address] [place] [address], [place] [address] Oct, [facility] [address] [id number] [address] [place] [address], [place] [address] Aug, [facility] [address] [id number] [address] [place] [address], [place] [address] 29 Sep, 2011 [facility] [address] [id number] [address] [place] [address], [place] [address] 19 Sep, 2011 [facility] [address] [id number] [address] [place] [address], [place] [address] 13 Sep, 2011 [facility] [address] [id number] [address] [place] [address], [place] [address] 05 Sep, 2011 [facility] [address] [id number] [address] [place] [address], [place] [address] Aug, [facility] [address] [id number] [address] [place] [address], [place] [address] Aug, [facility] [address] [id number] [address] [place] [address], [place] [address] Aug, [facility] [address] [id number] [address] [place] [address], [place] [address] Aug, [facility] [address] [id number] [address] [place] [address], [place] [address] Jul, [facility] [address] [id number] [address] [place] [address], [place] [address] Jul, [facility] [address] [id number] [address] [place] [address], [place] [address] Jul, [facility] [address] [id number] [address] [place] [address], [place] [address] Jul, [facility] [address] [id number] [address] [place] [address], [place] [address] Jun, [facility] [address] [id number] [address] [place] [address], [place] [address] Jun, [facility] [address] [id number] [address] [place] [address], [place] [address] May, [facility] [address] [id number] [address] [place] [address], [place] [address] May, [facility] [address] [id number] [address] [place] [address], [place] [address] May, [facility] [address] [id number] [address] [place] [address], [place] [address] May, [facility] [address] [id number] [address] [place] [address], [place] [address] 07 May, 2011 [facility] [address] [id number] [address] [place] [address], [place] [address] Apr, [facility] [address] [id number] [address] [place] [id number] Apr, [facility] [address] [id number] [address] [place] [id number] Apr, [facility] [address] [id number] [address] [place] [phone] Jan, [facility] [address] [id number] [address] [place] [phone] Dec, [facility] [address] [id number] [address] [place] [id number] October, [facility] [address] [id number] [address] [place] [id number] Jun, [facility] [address] [id number] [address] [place] [id number] Apr, [facility] [address] [id number] [address] [place] [id number] Apr, [facility] [address] [id number] [address] [place] [address] Apr, [facility] [address] [id number] [address] [place] [id number] Jun, IMMUNIZATIONS No Known Immunizations SOCIAL HISTORY Never Assessed REASON FOR VISIT [facility] [place] [...]
--- OUTSIDE RECORDS SUMMARY | 2020-01-25 13:00 | XMS REPORT ---
Author Author Ana Mayer Doctor Organization [facility] Address Unknown Phone Unavailable Care Team Providers Care [employer] C[employer] Hand Name Role Phone Migration, Doctor Unavailable Unavailable PROBLEMS Type Condition ICD9-CM Code NDP79-SD Code Onset Dates Condition S tatus SNOMED Code Problem Attention deficit R41.840 Active 76 560264 Problem Chronic hepatitis C without hepatic coma B18.2 Active 955138225 Problem Cannabis abuse F12.10 Active 84803 009 Problem Bipolar disorder, in partial remission, most rec ent episode hypomanic F31.71 Active 841811339 Problem Attention deficit hyperactivity disorder (ADHD), combi luciano type F90.2 Active 38103139 Problem Bipolar 1 disorder F31.9 Active 3 13961251 Problem H/O laminectomy Z98.89 Active 1616 31076 Problem Other chronic pain G89.29 Active 8 3412313 Problem Anxiety disorder, unspecified type F41.9 Active [id number] ALLERGIES No Information ENCOUNTERS Encounter Location Date Diagnosis [facility] [address] [facility] [id number] [address] [place] [address] Oct, [facility] [address] [facility] [id number] [address] [place] [address] Aug, Bipolar disorder, in partial remission, most recent episode hypomanic F31.71 ; Attention deficit hyperactivity disorder (ADHD), combined type F90.2 and Anxiety disorder, unspecified type F41.9 [facility] [address] [facility] [id number] [address] [place] [address] Aug, [facility] [address] [facility] [id number] [address] [place] [address] Aug, Bipolar disorder, in partial remission, most recent episode hypomanic F31.71 [facility] [address] [facility] [id number] [address] [place] [address] Aug, [facility] [address] [id number] [address] [place] [address] Aug, Bipolar disorder, in partial remission, most recent episode hypomanic F31.71 [facility] [address] [id number] [address] [place] [address] Aug, Bipolar disorder, in partial remission, most recent episode hypomanic F31.71 ; Attention deficit hyperactivity disorder (ADHD), combined type F90.2 and Anxiety disorder, unspecified type F41.9 [facility] [address] [id number] [address] [place] [address] Aug, Low back pain M54.5 and Pain in left wrist M25.532 [facility] [address] [id number] [address] [place] [address] Aug, [facility] [address] [id number] [address] [place] [address] Jun, [facility] [address] [facility] [id number] [address] [place] [address] Apr, Bipolar disorder, in partial remission, most recent episode hypomanic F31.71 [facility] [address] [id number] [address] [place] [address] Apr, [facility] [address] [id number] [address] [place] [address] Apr, Bipolar disorder, in partial remission, most recent episode hypomanic F31.71 ; Attention deficit hyperactivity disorder (ADHD), combined type F90.2 ; Anxiety disorder, unspecified type F41.9 and Other shelter (current) 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 Z79.899 [facility] [address] [id number] [address] [place] [address] Apr, Bipolar disorder, in partial remission, most recent episode hypomanic F31.71 [facility] [address] [id number] [address] [place] [address] Apr, Bipolar disorder, in partial remission, most recent episode hypomanic F31.71 [facility] [address] [facility] [id number] [address] [place] [address] Mar, [facility] [address] [id number] [address] [place] [address] Mar, Bipolar disorder, in partial remission, most recent episode hypomanic F31.71 ; Encounter for immunization Z23 and Low back pain M54.5 [facility] [address] [id number] [address] [place] [address] Mar, Bipolar disorder, in partial remission, most recent episode hypomanic F31.71 [facility] [address] [id number] [address] [place] [address] Mar, Bipolar disorder, in partial remission, most recent episode hypomanic F31.71 [facility] [address] [facility] [id number] [address] [place] [address] Jan, Bipolar disorder, in partial remission, most recent episode hypomanic F31.71 [facility] [address] [facility] [id number] [address] [place] [address] Jan, Bipolar disorder, in partial remission, most recent episode hypomanic F31.71 [facility] [address] [facility] [id number] [address] [place] [address] Dec, Bipolar disorder, in partial remission, most recent episode hypomanic F31.71 [facility] [address] [facility] [id number] [address] [place] [address] Dec, Bipolar disorder, in partial remission, most recent episode hypomanic F31.71 ; Attention deficit hyperactivity disorder (ADHD), combined type F90.2 ; Anxiety disorder, unspecified type F41.9 and Other shelter (current) 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 Z79.899 [facility] [address] [facility] [id number] [address] [place] [address] Dec, Bipolar disorder, in partial remission, most recent episode hypomanic F31.71 [facility] [address] [facility] [id number] [address] [place] [address] Dec, Bipolar disorder, in partial remission, most recent episode hypomanic F31.71 [facility] [address] [id number] [address] [place] [address] October, Bipolar disorder, in partial remission, most recent episode hypomanic F31.71 [facility] [address] [id number] [address] [place] [address] October, [facility] [address] [id number] [address] [place] [address] October, [facility] [address] [id number] [address] [place] [address] Oct, Bipolar disorder, in partial remission, most recent episode hypomanic F31.71 ; Attention deficit hyperactivity disorder (ADHD), combined type F90.2 ; Anxiety disorder, unspecified type F41.9 and Encounter for drug screening Z02.83 [facility] [address] [id number] [address] [place] [address] Oct, Bipolar disorder, in partial remission, most recent episode hypomanic F31.71 [facility] [address] [id number] [address] [place] [address] Oct, Bipolar disorder, in partial remission, most recent episode hypomanic F31.71 [facility] [address] [id number] [address] [place] [address] Aug, Bipolar disorder, in partial remission, most recent episode hypomanic F31.71 [facility] [address] [id number] [address] [place] [address] Aug, Bipolar disorder, in partial remission, most recent episode hypomanic F31.71 [facility] [address] [id number] [address] [place] [address] Aug, Bipolar disorder, in partial remission, most recent episode hypomanic F31.71 [facility] [address] [id number] [address] [place] [address] Jul, Bipolar disorder, in partial remission, most recent episode hypomanic F31.71 ; Attention deficit hyperactivity disorder (ADHD), combined type F90.2 and Anxiety disorder, unspecified type F41.9 [facility] [address] [id number] [address] [place] [address] Jul, Bipolar disorder, in partial remission, most recent episode hypomanic F31.71 [facility] [address] [id number] [address] [place] [address] Jun, Bipolar disorder, in partial remission, most recent episode hypomanic F31.71 [facility] [address] [id number] [address] [place] [address] May, Bipolar disorder, in partial remission, most recent episode hypomanic F31.71 [facility] [address] [facility] [id number] [address] [place] [address] May, Bipolar disorder, in partial remission, most recent episode hypomanic F31.71 [facility] [address] [facility] [id number] [address] [place] [address] Apr, [facility] [address] [id number] [address] [place] [address] Apr, Bipolar disorder, in partial remission, most recent episode hypomanic F31.71 ; Attention deficit hyperactivity disorder (ADHD), combined type F90.2 ; Anxiety disorder, unspecified type F41.9 and Cannabis abuse F12.10 [facility] [address] [id number] [address] [place] [address] Apr, Attention deficit hyperactiv ity disorder (ADHD), combined type F90.2 [facility] [address] [id number] [address] [place] [address] Mar, Attention deficit hyperactiv ity disorder (ADHD), combined type F90.2 [facility] [address] [facility] [id number] [address] [place] [address] Mar, Anxiety disorder, unspecifie d type F41.9 [facility] [address] [facility] [id number] [address] [place] [address] Jan, Attention deficit hyperactiv ity disorder (ADHD), combined type F90.2 [facility] [address] [facility] [id number] [address] [place] [address] Jan, Anxiety disorder, unspecifie d type F41.9 [facility] [address] [facility] [id number] [address] [place] [address] Jan, Other chronic pain G89.29 ; Chronic hepatitis C without hepatic coma B18.2 and Bipolar 1 disorder F31.9 [facility] [address] [facility] [id number] [address] [place] [address] Dec, Attention deficit hyperactiv ity disorder (ADHD), combined type F90.2 [facility] [address] [facility] [id number] [address] [place] [address] Dec, Bipolar disorder, in partial remission, most recent episode hypomanic F31.71 ; Attention deficit hyperactivity disorder (ADHD), combined type F90.2 and Anxiety disorder, unspecified type F41.9 [facility] [address] [facility] [id number] [address] [place] [address] Dec, Bipolar disorder, in partial remission, most recent episode hypomanic F31.71 ; Attention deficit hyperactivity disorder (ADHD), combined type F90.2 and Anxiety disorder, unspecified type F41.9 [facility] [address] [facility] [id number] [address] [place] [address] Dec, Bipolar 1 disorder F31.9 and Attention deficit R41.840 [facility] [address] [facility] [id number] [address] [place] [address] Oct, Other chronic pain G89.29 ; Alopecia L65.9 and Screening, lipid Z13.220 [facility] [address] [facility] [id number] [address] [place] [address] Oct, [place] [address] [facility] [id number] [address] [place] [address] Aug, [facility] [address] [facility] [id number] [address] [place] [address] Aug, Eustachian tube dysfunction, right H69.81 ; Vertigo R42 and Other chronic pain G89.29 [facility] [address] [id number] [address] [place] [address] Aug, [facility] [address] [id number] [address] [place] [address] Jun, [facility] [address] [id number] [address] [place] [address] Jun, Low back pain M54.5 and Othe r chronic pain G89.29 [facility] [address] [id number] [address] [place] [address] Jun, [facility] [address] [id number] [address] [place] [address] May, [facility] [address] [id number] [address] [place] [address] Jan, [facility] [address] [id number] [address] [place] [address] Dec, [facility] [address] [id number] [address] [place] [address] Dec, [facility] [address] [id number] [address] [place] [address] Jun, [facility] [address] [id number] [address] [place] [address] Apr, Eustachian tube dysfunction, unspecified laterality H69.80 ; Hot flashes N95.1 and Encounter for immunization Z23 [facility] [address] [id number] [address] [place] [address] Jan, [facility] [address] [id number] [address] [place] [address] Jan, [facility] [address] [id number] [address] [place] [address] Jan, [facility] [address] [id number] [address] [place] [address] Jan, [facility] [address] [id number] [address] [place] [address] Jan, Encounter to establish care V65.8 ; Bipolar 1 disorder 296.7 ; Abdominal pain 789.00 ; Constipation 564.00 ; Hard of hearing 389.9 and Drug abuse 305.90 [facility] [address] [id number] [address] [place] [address] Dec, [facility] [address] [id number] [address] [place] [address] October, [facility] [address] [id number] [address] [place] [address] October, [facility] [address] [id number] [address] [place] [address] Oct, [facility] [address] [id number] [address] [place] [address] Oct, [facility] [address] [id number] [address] [place] [address] Oct, [facility] [address] [id number] [address] [place] [address] Aug, [facility] [address] [id number] [address] [place] [address] Aug, [facility] [address] [id number] [address] [place] [address] Aug, [facility] [address] [id number] [address] [place] [address] Aug, [facility] [address] [id number] [address] [place] [address] Aug, [facility] [address] [id number] [address] [place] [address] Aug, [facility] [address] [id number] [address] [place] [address], [place] [address] Aug, 2014 [facility] [address] [id number] [address] [place] [address], [place] [address] Aug, 2014 [facility] [address] [id number] [address] [place] [address], [place] [address] Aug, 2014 [facility] [address] [id number] [address] [place] [address], [place] [address] Aug, 2014 [facility] [address] [id number] [address] [place] [address], [place] [address] Aug, 2014 [facility] [address] [id number] [address] [place] [address], [place] [address] Aug, 2014 [facility] [address] [id number] [address] [place] [address], [place] [address] Aug, 2014 [facility] [address] [id number] [address] [place] [address], [place] [address] Aug, 2014 [facility] [address] [id number] [address] [place] [address], [place] [address] Aug, [facility] [address] [id number] [address] [place] [address], [place] [address] Jul, [facility] [address] [id number] [address] [place] [address], [place] [address] Jul, [facility] [address] [id number] [address] [place] [address], [place] [address] Jul, [facility] [address] [id number] [address] [place] [address], [place] [address] Jul, [facility] [address] [id number] [address] [place] [address], [place] [address] Jul, [facility] [address] [id number] [address] [place] [address], [place] [address] Jul, [facility] [address] [id number] [address] [place] [address], [place] [address] Jul, [facility] [address] [id number] [address] [place] [address], [place] [address] Jul, [facility] [address] [id number] [address] [place] [address], [place] [address] Jun, [facility] [address] [id number] [address] [place] [address], [place] [address] Jun, [facility] [address] [id number] [address] [place] [address], [place] [address] Jun, [facility] [address] [id number] [address] [place] [address], [place] [address] Jun, [facility] [address] [id number] [address] [place] [address], [place] [address] Jun, [facility] [address] [id number] [address] [place] [address], [place] [address] Jun, [facility] [address] [id number] [address] [place] [address], [place] [address] Jun, [facility] [address] [id number] [address] [place] [address], [place] [address] Jun, [facility] [address] [id number] [address] [place] [address], [place] [address] Jun, [facility] [address] [id number] [address] [place] [address], [place] [address] Jun, [facility] [address] [id number] [address] [place] [address], [place] [address] Jun, [facility] [address] [id number] [address] [place] [address], [place] [address] May, [facility] [address] [id number] [address] [place] [address], [place] [address] May, [facility] [address] [id number] [address] [place] [address], [place] [address] May, [facility] [address] [id number] [address] [place] [address], [place] [address] May, [facility] [address] [id number] [address] [place] [address], [place] [address] May, [facility] [address] [id number] [address] [place] [address], [place] [address] May, [facility] [address] [id number] [address] [place] [address], [place] [address] May, [facility] [address] [id number] [address] [place] [address], [place] [address] Apr, [facility] [address] [id number] [address] [place] [address], [place] [address] Apr, [facility] [address] [id number] [address] [place] [address], [place] [address] Apr, [facility] [address] [id number] [address] [place] [address], [place] [address] Apr, [facility] [address] [id number] [address] [place] [address], [place] [address] Apr, [facility] [address] [id number] [address] [place] [address], [place] [address] Apr, [facility] [address] [id number] [address] [place] [address], [place] [address] Mar, [facility] [address] [id number] [address] [place] [address], [place] [address] 29 Mar, 2013 [facility] [address] [id number] [address] [place] [address], [place] [address] 10 Mar, 2013 [facility] [address] [id number] [address] [place] [address], [place] [address] 10 Mar, 2013 [facility] [address] [id number] [address] [place] [address], [place] [address] Mar, 2013 [facility] [address] [id number] [address] [place] [address], [place] [address] Mar, [facility] [address] [id number] [address] [place] [address], [place] [address] Jan, [facility] [address] [id number] [address] [place] [address], [place] [address] Jan, [facility] [address] [id number] [address] [place] [address], [place] [address] Jan, [facility] [address] [id number] [address] [place] [address], [place] [address] Jan, [facility] [address] [id number] [address] [place] [address], [place] [address] Dec, [facility] [address] [id number] [address] [place] [address], [place] [address] Dec, [facility] [address] [id number] [address] [place] [address], [place] [address] Dec, [facility] [address] [id number] [address] [place] [address], [place] [address] Dec, [facility] [address] [id number] [address] [place] [address], [place] [address] Dec, [facility] [address] [id number] [address] [place] [address], [place] [address] Dec, [facility] [address] [id number] [address] [place] [address], [place] [address] Dec, [facility] [address] [id number] [address] [place] [address], [place] [address] Dec, [facility] [address] [id number] [address] [place] [address], [place] [address] Dec, [facility] [address] [id number] [address] [place] [address], [place] [address] Dec, [facility] [address] [id number] [address] [place] [address], [place] [address] Dec, [facility] [address] [id number] [address] [place] [address], [place] [address] Dec, [facility] [address] [id number] [address] [place] [address], [place] [address] October, [facility] [address] [id number] [address] [place] [address], [place] [address] October, [facility] [address] [id number] [address] [place] [address], [place] [address] October, [facility] [address] [id number] [address] [place] [address], [place] [address] October, [facility] [address] [id number] [address] [place] [address], [place] [address] October, [facility] [address] [id number] [address] [place] [address], [place] [address] October, [facility] [address] [id number] [address] [place] [address], [place] [address] Oct, [facility] [address] [id number] [address] [place] [address], [place] [address] Oct, [facility] [address] [id number] [address] [place] [address], [place] [address] Oct, [facility] [address] [id number] [address] [place] [address], [place] [address] Oct, [facility] [address] [id number] [address] [place] [address], [place] [address] Oct, [facility] [address] [id number] [address] [place] [address], [place] [address] Oct, [facility] [address] [id number] [address] [place] [address], [place] [address] Oct, [facility] [address] [id number] [address] [place] [address], [place] [address] Oct, [facility] [address] [id number] [address] [place] [address], [place] [address] Oct, [facility] [address] [id number] [facility] [place] [address] 09 Oct, 2013 [facility] [address] [id number] [facility] [place] [address] Oct, [facility] [address] [id number] [address] [place] [address], [place] [address] Oct, [facility] [address] [id number] [address] [place] [address], [place] [address] Aug, [facility] [address] [id number] [address] [place] [address], [place] [address] Aug, [facility] [address] [id number] [address] [place] [address], [place] [address] Aug, [facility] [address] [id number] [address] [place] [address], [place] [address] Aug, [facility] [address] [id number] [address] [place] [address], [place] [address] Aug, [facility] [address] [id number] [address] [place] [address], [place] [address] 05 Aug, 2013 [facility] [address] [id number] [address] [place] [address], [place] [address] Aug, [facility] [address] [id number] [address] [place] [address], [place] [address] Aug, [facility] [address] [id number] [address] [place] [address], [place] [address] Aug, [facility] [address] [id number] [address] [place] [address], [place] [address] Aug, [facility] [address] [id number] [address] [place] [address], [place] [address] Aug, [facility] [address] [id number] [address] [place] [address], [place] [address] Aug, [facility] [address] [id number] [address] [place] [address], [place] [address] Aug, [facility] [address] [id number] [address] [place] [address], [place] [address] 20 Aug, 2013 [facility] [address] [id number] [address] [place] [address], [place] [address] 14 Aug, 2013 [facility] [address] [id number] [address] [place] [address], [place] [address] 14 Aug, 2013 [facility] [address] [id number] [address] [place] [address], [place] [address] 14 Aug, 2013 [facility] [address] [id number] [address] [place] [address], [place] [address] 14 Aug, 2013 [facility] [address] [id number] [address] [place] [address], [place] [address] 07 Aug, 2013 [facility] [address] [id number] [address] [place] [address], [place] [address] 07 Aug, 2013 [facility] [address] [id number] [address] [place] [address], [place] [address] 06 Aug, 2013 [facility] [address] [id number] [address] [place] [address], [place] [address] 06 Aug, 2013 [facility] [address] [id number] [address] [place] [address], [place] [address] 04 Aug, 2013 [facility] [address] [id number] [address] [place] [address], [place] [address] 04 Aug, 2013 [facility] [address] [id number] [address] [place] [address], [place] [address] Aug, [facility] [address] [id number] [address] [place] [address], [place] [address] Jul, [facility] [address] [id number] [address] [place] [address], [place] [address] Jul, [facility] [address] [id number] [address] [place] [address], [place] [address] Jul, [facility] [address] [id number] [address] [place] [address], [place] [address] Jul, [facility] [address] [id number] [address] [place] [address], [place] [address] Jul, [facility] [address] [id number] [address] [place] [address], [place] [address] Jul, [facility] [address] [id number] [address] [place] [address], [place] [address] Jul, [facility] [address] [id number] [address] [place] [address], [place] [address] Jul, [facility] [address] [id number] [address] [place] [address], [place] [address] Jul, [facility] [address] [id number] [address] [place] [address], [place] [address] Jul, [facility] [address] [id number] [address] [place] [address], [place] [address] Jul, [facility] [address] [id number] [address] [place] [address], [place] [address] Jul, [facility] [place] [address] [id number] [address] [place] [address], [place] [address] Jul, [facility] [address] [id number] [address] [place] [address], [place] [address] Jul, [facility] [place] [address] [id number] [address] [place] [address], [place] [address] Jul, [facility] [address] [id number] [address] [place] [address], [place] [address] Jul, [facility] [address] [id number] [address] [place] [address], [place] [address] Jul, [facility] [address] [id number] [address] [place] [address], [place] [address] Jul, [facility] [address] [id number] [address] [place] [address], [place] [address] Jul, [facility] [place] [address] [id number] [address] [place] [address], [place] [address] Jul, [facility] [address] [id number] [address] [place] [address], [place] [address] Jun, [facility] [address] [id number] [address] [place] [address], [place] [address] Jun, [facility] [address] [id number] [address] [place] [address], [place] [address] Jun, [facility] [address] [id number] [address] [place] [address], [place] [address] Jun, [facility] [address] [id number] [address] [place] [address], [place] [address] Jun, [facility] [address] [id number] [address] [place] [address], [place] [address] Jun, [facility] [address] [id number] [address] [place] [address], [place] [address] Jun, [facility] [place] [address] [id number] [address] [place] [address], [place] [address] Jun, [facility] [address] [id number] [address] [place] [address], [place] [address] Jun, [facility] [place] [address] [id number] [address] [place] [address], [place] [address] Jun, [facility] [address] [id number] [address] [place] [address], [place] [address] Jun, [facility] [address] [id number] [address] [place] [address], [place] [address] Jun, [facility] [address] [id number] [address] [place] [address], [place] [address] Jun, [facility] [address] [id number] [address] [place] [address], [place] [address] Jun, [facility] [address] [id number] [address] [place] [address], [place] [address] 20 Jun, 2013 [facility] [place] [address] [id number] [address] [place] [address], [place] [address] 18 Jun, 2013 [facility] [address] [id number] [address] [place] [address], [place] [address] 18 Jun, 2013 [facility] [address] [id number] [address] [place] [address], [place] [address] 17 Jun, 2013 [facility] [place] [address] [id number] [address] [place] [address], [place] [address] 17 Jun, 2013 [facility] [place] [address] [id number] [address] [place] [address], [place] [address] 13 Jun, 2013 [facility] [address] [id number] [address] [place] [address], [place] [address] 12 Jun, 2013 [facility] [address] [id number] [address] [place] [address], [place] [address] 12 Jun, 2013 [facility] [address] [id number] [address] [place] [address], [place] [address] 09 Jun, 2013 [facility] [address] [id number] [address] [place] [address], [place] [address] 05 Jun, 2013 [facility] [address] [id number] [address] [place] [address], [place] [address] 05 Jun, 2013 [facility] [address] [id number] [address] [place] [address], [place] [address] 04 Jun, 2013 [facility] [address] [id number] [address] [place] [address], [place] [address] 04 Jun, 2013 [facility] [address] [id number] [address] [place] [address], [place] [address] 17 May, 2013 [facility] [address] [id number] [address] [place] [address], [place] [address] 17 May, 2013 [facility] [place] [address] [id number] [address] [place] [address], [place] [address] May, [facility] [address] [id number] [address] [place] [address], [place] [address] May, [facility] [address] [id number] [address] [place] [address], [place] [address] May, [facility] [address] [id number] [address] [place] [address], [place] [address] May, [facility] [address] [id number] [address] [place] [address], [place] [address] Apr, [facility] [address] [id number] [address] [place] [address], [place] [address] Apr, [facility] [address] [id number] [address] [place] [address], [place] [address] Apr, [facility] [address] [id number] [address] [place] [address], [place] [address] Apr, [facility] [address] [id number] [address] [place] [address], [place] [address] Apr, [facility] [address] [id number] [address] [place] [address], [place] [address] Apr, [facility] [address] [id number] [address] [place] [address], [place] [address] Apr, [facility] [address] [id number] [address] [place] [address], [place] [address] Apr, [facility] [address] [id number] [address] [place] [address], [place] [address] 26 Mar, 2013 [facility] [address] [id number] [address] [place] [address], [place] [address] 24 Sep2012 [facility] [address] [id number] [address] [place] [address], [place] [address] 17 Mar, 2013 [facility] [address] [id number] [address] [place] [address], [place] [address] 17 Mar, 2013 [facility] [address] [id number] [address] [place] [address] [place] [address] 11 Mar, 2013 [facility] [address] [id number] [address] [place] [address], [place] [address] 10 Mar, 2013 [facility] [address] [id number] [address] [place] [address], [place] [address] 05 Mar, 2013 [facility] [address] [id number] [address] [place] [address], [place] [address] 04 Mar, 2013 [facility] [address] [id number] [address] [place] [address], [place] [address] 20 Jan, 2013 [facility] [address] [id number] [address] [place] [address], [place] [address] Jan, [facility] [address] [id number] [address] [place] [address], [place] [address] 14 Jan, 2013 [facility] [place] [address] [id number] [address] [place] [address], [place] [address] Jan, [facility] [place] [address] [id number] [address] [place] [address], [place] [address] Jan, [facility] [place] [address] [id number] [address] [place] [address], [place] [address] Jan, [facility] [place] [address] [id number] [address] [place] [address], [place] [address] Dec, [facility] [place] [address] [id number] [address] [place] [address], [place] [address] Dec, [facility] [address] [id number] [address] [place] [address], [place] [address] Dec, [facility] [address] [id number] [address] [place] [address], [place] [address] Dec, [facility] [address] [id number] [address] [place] [address], [place] [address] Dec, [facility] [address] [id number] [address] [place] [address], [place] [address] 17 Dec, 2012 [facility] [address] [id number] [address] [place] [address], [place] [address] 16 Dec, 2012 [facility] [address] [id number] [address] [place] [address], [place] [address] 16 Dec, 2012 [facility] [address] [id number] [address] [place] [address], [place] [address] 15 Dec, 2012 [facility] [address] [id number] [address] [place] [address], [place] [address] 10 Dec, 2012 [facility] [address] [id number] [address] [place] [address], [place] [address] 28 Dec, 2012 [facility] [address] [id number] [address] [place] [address], [place] [address] Dec, [facility] [address] [id number] [address] [place] [address], [place] [address] Dec, [facility] [address] [id number] [address] [place] [address], [place] [address] Dec, [facility] [place] [address] [id number] [address] [place] [address], [place] [address] Dec, [facility] [place] [address] [id number] [address] [place] [address], [place] [address] Dec, [facility] [address] [id number] [address] [place] [address], [place] [address] October, [facility] [place] [address] [id number] [address] [place] [address], [place] [address] October, [facility] [address] [id number] [address] [place] [address], [place] [address] October, [facility] [address] [id number] [address] [place] [address], [place] [address] October, [facility] [address] [id number] [address] [place] [address], [place] [address] October, [facility] [address] [id number] [address] [place] [address], [place] [address] October, [facility] [place] [address] [id number] [address] [place] [address], [place] [address] October, [facility] [address] [id number] [address] [place] [address], [place] [address] Oct, [facility] [address] [id number] [address] [place] [address], [place] [address] Oct, [facility] [address] [id number] [address] [place] [address], [place] [address] Oct, [facility] [address] [id number] [address] [place] [address], [place] [address] Oct, [facility] [address] [id number] [address] [place] [address], [place] [address] Oct, [facility] [address] [id number] [address] [place] [address], [place] [address] Oct, [facility] [place] [address] [id number] [address] [place] [address], [place] [address] Oct, [facility] [place] [address] [id number] [address] [place] [address], [place] [address] 15 Oct, 2012 [facility] [place] [address] [id number] [address] [place] [address], [place] [address] Oct, [facility] [place] [address] [id number] [address] [place] [address], [place] [address] Oct, [facility] [address] [id number] [address] [place] [address], [place] [address] Oct, [facility] [address] [id number] [address] [place] [address], [place] [address] Oct, [facility] [address] [id number] [address] [place] [address], [place] [address] Aug, [facility] [address] [id number] [address] [place] [address], [place] [address] Aug, [facility] [address] [id number] [address] [place] [address], [place] [address] 12 Aug, 2012 [facility] [address] [id number] [address] [place] [address], [place] [address] 06 Aug, 2012 [facility] [address] [id number] [address] [place] [address], [place] [address] 05 Aug, 2012 [facility] [address] [id number] [address] [place] [address], [place] [address] 05 Aug, 2012 [facility] [address] [id number] [address] [place] [address], [place] [address] 20 Aug, 2012 [facility] [address] [id number] [address] [place] [address], [place] [address] 14 Aug, 2012 [facility] [address] [id number] [address] [place] [address], [place] [address] 12 Aug, 2012 [facility] [address] [id number] [address] [place] [address], [place] [address] Aug, [facility] [place] [address] [id number] [address] [place] [address], [place] [address] Jul, [facility] [place] [address] [id number] [address] [place] [address], [place] [address] Jul, [facility] [place] [address] [id number] [address] [place] [address], [place] [address] Jul, [facility] [place] [address] [id number] [address] [place] [address], [place] [address] Jun, [facility] [address] [id number] [address] [place] [address], [place] [address] Jun, [facility] [address] [id number] [address] [place] [address], [place] [address] Jun, [facility] [address] [id number] [address] [place] [address], [place] [address] Jun, [facility] [address] [id number] [address] [place] [address], [place] [address] Jun, [facility] [address] [id number] [address] [place] [address], [place] [address] 14 Jun, 2012 [facility] [address] [id number] [address] [place] [address], [place] [address] 14 Jun, 2012 [facility] [address] [id number] [address] [place] [address], [place] [address] 13 Jun, 2012 [facility] [address] [id number] [address] [place] [address], [place] [address] 13 Jun, 2012 [facility] [address] [id number] [address] [place] [address], [place] [address] 11 Jun, 2012 [facility] [address] [id number] [address] [place] [address], [place] [address] 11 Jun, 2012 [facility] [address] [id number] [address] [place] [address], [place] [address] 11 Jun, 2012 [facility] [address] [id number] [address] [place] [address], [place] [address] 11 Jun, 2012 [facility] [address] [id number] [address] [place] [address], [place] [address] 07 Jun, 2012 [facility] [address] [id number] [address] [place] [address], [place] [address] 07 Jun, 2012 [facility] [address] [id number] [address] [place] [address], [place] [address] 06 Jun, 2012 [facility] [address] [id number] [address] [place] [address], [place] [address] 06 Jun, 2012 [facility] [address] [id number] [address] [place] [address], [place] [address] Jun, [facility] [address] [id number] [address] [place] [address], [place] [address] 06 Jun, 2012 [facility] [address] [id number] [address] [place] [address], [place] [address] 05 Jun, 2012 [facility] [address] [id number] [address] [place] [address], [place] [address] Jun, [facility] [address] [id number] [address] [place] [address], [place] [address] Jun, [facility] [address] [id number] [address] [place] [address], [place] [address] Jun, [facility] [address] [id number] [address] [place] [address], [place] [address] May, [facility] [address] [id number] [address] [place] [address], [place] [address] May, [facility] [address] [id number] [address] [place] [address], [place] [address] May, [facility] [address] [id number] [address] [place] [address], [place] [address] May, [facility] [address] [id number] [address] [place] [address], [place] [address] May, [facility] [address] [id number] [address] [place] [address], [place] [address] May, [facility] [address] [id number] [address] [place] [address], [place] [address] May, [facility] [address] [id number] [address] [place] [address], [place] [address] May, [facility] [address] [id number] [address] [place] [address], [place] [address] Apr, [facility] [address] [id number] [address] [place] [address] Apr, [facility] [address] [id number] [address] [place] [address], [place] [address] Apr, [facility] [address] [id number] [address] [place] [address], [place] [address] Apr, [facility] [address] [id number] [address] [place] [address] Apr, [facility] [address] [id number] [address] [place] [address], [place] [address] Apr, [facility] [address] [id number] [address] [place] [address], [place] [address] Apr, [facility] [address] [id number] [address] [place] [address], [place] [address] Apr, [facility] [address] [id number] [address] [place] [address], [place] [address] Apr, [facility] [address] [id number] [address] [place] [address], [place] [address] Apr, [facility] [address] [id number] [address] [place] [address], [place] [address] Apr, [facility] [address] [id number] [address] [place] [address], [place] [id number] Apr, [facility] [address] [id number] [address] [place] [address], [place] [address] Mar, [facility] [address] [id number] [address] [place] [address], [place] [address] 18 Mar, 2012 [facility] [address] [id number] [address] [place] [address] Mar, [facility] [address] [id number] [address] [place] [id number] Mar, [facility] [address] [id number] [address] [place] [id number] Mar, [facility] [address] [id number] [address] [place] [id number] Mar, [facility] [address] [id number] [address] [place] [address], [place] [address] Mar, [facility] [address] [id number] [address] [place] [address], [place] [address] Jan, [facility] [address] [id number] [address] [place] [id number] Jan, [facility] [address] [id number] [facility] [id number] Jan, [facility] [address] [id number] [facility] [place] [id number] Jan, [facility] [address] [id number] [address] [place] [address], [place] [address] Jan, [facility] [address] [id number] [address] [place] [address], [place] [address] Jan, [facility] [address] [id number] [address] [place] [address], [place] [address] Jan, [facility] [address] [id number] [address] [place] [address], [place] [address] Jan, [facility] [address] [id number] [address] [place] [address], [place] [address] Jan, [facility] [address] [id number] [address] [place] [address], [place] [address] Jan, [facility] [address] [id number] [address] [place] [address], [place] [address] Jan, [facility] [address] [id number] [address] [place] [address], [place] [address] Dec, [facility] [address] [id number] [address] [place] [address], [place] [address] Dec, [facility] [address] [id number] [address] [place] [address], [place] [address] Dec, [facility] [address] [id number] [address] [place] [address], [place] [address] Dec, [facility] [address] [id number] [address] [place] [address], [place] [address] Dec, [facility] [address] [id number] [address] [place] [address], [place] [address] Dec, [facility] [address] [id number] [address] [place] [address] [place] [address] 18 Jan, 2012 [facility] [address] [id number] [address] [place] [address], [place] [address] 17 Jan, 2012 [facility] [address] [id number] [address] [place] [address], [place] [address] 16 Jan, 2012 [facility] [address] [id number] [address] [place] [address], [place] [address] 13 Jan, 2012 [facility] [address] [id number] [address] [place] [address], [place] [address] 13 Jan, 2012 [facility] [address] [id number] [address] [place] [address], [place] [address] 02 Jan, 2012 [facility] [address] [id number] [address] [place] [address], [place] [address] Dec, [facility] [address] [id number] [address] [place] [address], [place] [address] Dec, [facility] [address] [id number] [address] [place] [address], [place] [address] Dec, [facility] [address] [id number] [address] [place] [address], [place] [address] Dec, [facility] [address] [id number] [address] [place] [address], [place] [address] 15 Dec, 2011 [facility] [address] [id number] [address] [place] [address], [place] [address] Dec, [facility] [address] [id number] [address] [place] [address], [place] [address] Dec, [facility] [address] [id number] [address] [place] [address], [place] [address] October, [facility] [address] [id number] [address] [place] [address], [place] [address] October, [facility] [address] [id number] [address] [place] [address], [place] [address] October, [facility] [address] [id number] [address] [place] [address], [place] [address] October, [facility] [address] [id number] [address] [place] [address], [place] [address] October, [facility] [address] [id number] [address] [place] [address], [place] [address] October, [facility] [address] [id number] [address] [place] [address], [place] [address] Oct, [facility] [address] [id number] [address] [place] [address], [place] [address] 24 Oct, 2011 [facility] [address] [id number] [address] [place] [address], [place] [address] Oct, [facility] [address] [id number] [address] [place] [address], [place] [address] Oct, [facility] [address] [id number] [address] [place] [address], [place] [address] Oct, [facility] [address] [id number] [address] [place] [address], [place] [address] Oct, [facility] [address] [id number] [address] [place] [address], [place] [address] Oct, [facility] [address] [id number] [address] [place] [address], [place] [address] Aug, [facility] [address] [id number] [address] [place] [address], [place] [address] 29 Sep, 2011 [facility] [address] [id number] [address] [place] [address], [place] [address] 19 Sep, 2011 [facility] [address] [id number] [address] [place] [address], [place] [address] 13 Sep, 2011 [facility] [address] [id number] [address] [place] [address], [place] [address] 05 Sep, 2011 [facility] [address] [id number] [address] [place] [address], [place] [address] Aug, [facility] [address] [id number] [address] [place] [address], [place] [address] Aug, [facility] [address] [id number] [address] [place] [address], [place] [address] Aug, [facility] [address] [id number] [address] [place] [address], [place] [address] Aug, [facility] [address] [id number] [address] [place] [address], [place] [address] Jul, [facility] [address] [id number] [address] [place] [address], [place] [address] Jul, [facility] [address] [id number] [address] [place] [address], [place] [address] Jul, [facility] [address] [id number] [address] [place] [address], [place] [address] Jul, [facility] [address] [id number] [address] [place] [address], [place] [address] Jun, [facility] [address] [id number] [address] [place] [address], [place] [address] Jun, [facility] [address] [id number] [address] [place] [address], [place] [address] May, [facility] [address] [id number] [address] [place] [address], [place] [address] May, [facility] [address] [id number] [address] [place] [address], [place] [address] May, [facility] [address] [id number] [address] [place] [address], [place] [address] May, [facility] [address] [id number] [address] [place] [address], [place] [address] 07 May, 2011 [facility] [address] [id number] [address] [place] [address], [place] [address] Apr, [facility] [address] [id number] [address] [place] [address] Apr, [facility] [address] [id number] [address] [place] [address] Apr, [facility] [address] [id number] [address] [place] [address] Jan, [facility] [address] [id number] [address] [place] [address] Dec, [facility] [address] [id number] [address] [place] [address] October, [facility] [address] [id number] [address] [place] [address] Jun, [facility] [address] [id number] [address] [place] [address] Apr, [facility] [address] [id number] [address] [place] [id number] Apr, [facility] [address] [id number] [address] [place] [address] Apr, [facility] [address] [id number] [address] [place] [address] Jun, IMMUNIZATIONS No Known Immunizations SOCIAL HISTORY Never Assessed [place] [facility] [place] [...]
--- OUTSIDE RECORDS SUMMARY | 2020-01-25 13:00 | XMS REPORT ---
Author Author Ana Mayer Doctor Organization [facility] Address Unknown Phone Unavailable Care Team Providers Care Perinatal Tech Name Role Phone Migration, Doctor Unavailable Unavailable PROBLEMS Type Condition ICD9-CM Code [id number] Code Onset Dates Condition S tatus SNOMED Code Problem Attention deficit R41.840 Active 76 446346 Problem Chronic hepatitis C without hepatic coma B18.2 Active 532036664 Problem Cannabis abuse F12.10 Active 72173 009 Problem Bipolar disorder, in partial remission, most rec ent episode hypomanic F31.71 Active 092812525 Problem Attention deficit hyperactivity disorder (ADHD), combi luciano type F90.2 Active 00748936 Problem Bipolar 1 disorder F31.9 Active 3 51757055 Problem H/O laminectomy Z98.89 Active 1616 79741 Problem Other chronic pain G89.29 Active 8 3522312 Problem Anxiety disorder, unspecified type F41.9 Active 585155675 ALLERGIES No Information ENCOUNTERS Encounter Location Date Diagnosis [facility] [address] [facility]NOTE [facility]] [id number] [address] [place] [address] Oct, [facility] [address] [facility]NOTE [facility]] [id number] [address] [place] [address] Aug, Bipolar disorder, in partial remission, most recent episode hypomanic F31.71 ; Attention deficit hyperactivity disorder (ADHD), combined type F90.2 and Anxiety disorder, unspecified type F41.9 [facility] [address] [facility]NOTE [facility]] [id number] [address] [place] [address] Aug, [facility] [address] [facility]NOTE [facility]] [id number] [address] [place] [address] Aug, Bipolar disorder, in partial remission, most recent episode hypomanic F31.71 [facility] [address] [facility]NOTE [facility]] [id number] [address] [place] [address] Aug, [facility] [address] [id number] [address] [place] [address] Aug, Bipolar disorder, in partial remission, most recent episode hypomanic F31.71 [facility] [address] [id number] [address] [place] [address] Aug, Bipolar disorder, in partial remission, most recent episode hypomanic F31.71 ; Attention deficit hyperactivity disorder (ADHD), combined type F90.2 and Anxiety disorder, unspecified type F41.9 [facility] [address] [id number] [address] [place] [address] Aug, Low back pain M54.5 and Pain in left wrist M25.532 [facility] [address] [id number] [address] [place] [address] Aug, [facility] [address] [id number] [address] [place] [address] Jun, [facility] [address] [facility]NOTE [facility]] [id number] [address] [place] [address] Apr, Bipolar disorder, in partial remission, most recent episode hypomanic F31.71 [facility] [address] [id number] [address] [place] [address] Apr, [facility] [address] [id number] [address] [place] [address] Apr, Bipolar disorder, in partial remission, most recent episode hypomanic F31.71 ; Attention deficit hyperactivity disorder (ADHD), combined type F90.2 ; Anxiety disorder, unspecified type F41.9 and Other halfway (current) 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 Z79.899 [facility] [address] [id number] [address] [place] [address] Apr, Bipolar disorder, in partial remission, most recent episode hypomanic F31.71 [facility] [address] [id number] [address] [place] [address] Apr, Bipolar disorder, in partial remission, most recent episode hypomanic F31.71 [facility] [address] [facility]NOTE 3] [id number] [address] [place] [address] Mar, [facility] [address] [id number] [address] [place] [address] Mar, Bipolar disorder, in partial remission, most recent episode hypomanic F31.71 ; Encounter for immunization Z23 and Low back pain M54.5 [facility] [address] [id number] [address] [place] [address] Mar, Bipolar disorder, in partial remission, most recent episode hypomanic F31.71 [facility] [address] [id number] [address] [place] [address] Mar, Bipolar disorder, in partial remission, most recent episode hypomanic F31.71 [facility] [address] [facility]NOTE 3] [id number] [address] [place] [address] Jan, Bipolar disorder, in partial remission, most recent episode hypomanic F31.71 [facility] [address] [facility]NOTE 3] [id number] [address] [place] [address] Jan, Bipolar disorder, in partial remission, most recent episode hypomanic F31.71 [facility] [address] [facility]NOTE 3] [id number] [address] [place] [address] Dec, Bipolar disorder, in partial remission, most recent episode hypomanic F31.71 [facility] [address] [facility] 3] [id number] [address] [place] [address] Dec, Bipolar disorder, in partial remission, most recent episode hypomanic F31.71 ; Attention deficit hyperactivity disorder (ADHD), combined type F90.2 ; Anxiety disorder, unspecified type F41.9 and Other halfway (current) 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 Z79.899 [facility] [address] [facility]NOTE 3] [id number] [address] [place] [address] Dec, Bipolar disorder, in partial remission, most recent episode hypomanic F31.71 [facility] [address] [facility]NOTE 3] [id number] [address] [place] [address] Dec, Bipolar disorder, in partial remission, most recent episode hypomanic F31.71 [facility] [address] [id number] [address] [place] [address] October, Bipolar disorder, in partial remission, most recent episode hypomanic F31.71 [facility] [address] [id number] [address] [place] [address] October, [facility] [address] [id number] [address] [place] [address] October, [facility] [address] [id number] [address] [place] [address] Oct, Bipolar disorder, in partial remission, most recent episode hypomanic F31.71 ; Attention deficit hyperactivity disorder (ADHD), combined type F90.2 ; Anxiety disorder, unspecified type F41.9 and Encounter for drug screening Z02.83 [facility] [address] [id number] [address] [place] [address] Oct, Bipolar disorder, in partial remission, most recent episode hypomanic F31.71 [facility] [address] [id number] [address] [place] [address] Oct, Bipolar disorder, in partial remission, most recent episode hypomanic F31.71 [facility] [address] [id number] [address] [place] [address] Aug, Bipolar disorder, in partial remission, most recent episode hypomanic F31.71 [facility] [address] [id number] [address] [place] [address] Aug, Bipolar disorder, in partial remission, most recent episode hypomanic F31.71 [facility] [address] [id number] [address] [place] [address] Aug, Bipolar disorder, in partial remission, most recent episode hypomanic F31.71 [facility] [address] [id number] [address] [place] [address] Jul, Bipolar disorder, in partial remission, most recent episode hypomanic F31.71 ; Attention deficit hyperactivity disorder (ADHD), combined type F90.2 and Anxiety disorder, unspecified type F41.9 [facility] [address] [id number] [address] [place] [address] Jul, Bipolar disorder, in partial remission, most recent episode hypomanic F31.71 [facility] [address] [id number] [address] [place] [address] Jun, Bipolar disorder, in partial remission, most recent episode hypomanic F31.71 [facility] [address] [id number] [address] [place] [address] May, Bipolar disorder, in partial remission, most recent episode hypomanic F31.71 [facility] [address] [facility]NOTE 3] [id number] [address] [place] [address] May, Bipolar disorder, in partial remission, most recent episode hypomanic F31.71 [facility] [address] [facility]NOTE 3] [id number] [address] [place] [address] Apr, [facility] [address] [id number] [address] [place] [address] Apr, Bipolar disorder, in partial remission, most recent episode hypomanic F31.71 ; Attention deficit hyperactivity disorder (ADHD), combined type F90.2 ; Anxiety disorder, unspecified type F41.9 and Cannabis abuse F12.10 [facility] [address] [id number] [address] [place] [address] Apr, Attention deficit hyperactiv ity disorder (ADHD), combined type F90.2 [facility] [address] [id number] [address] [place] [address] Mar, Attention deficit hyperactiv ity disorder (ADHD), combined type F90.2 [facility] [address] [facility] 3] [id number] [address] [place] [address] Mar, Anxiety disorder, unspecifie d type F41.9 [facility] [address] [facility]NOTE 3] [id number] [address] [place] [address] Jan, Attention deficit hyperactiv ity disorder (ADHD), combined type F90.2 [facility] [address] [facility]NOTE 3] [id number] [address] [place] [address] Jan, Anxiety disorder, unspecifie d type F41.9 [facility] [address] [facility]NOTE 3] [id number] [address] [place] [address] Jan, Other chronic pain G89.29 ; Chronic hepatitis C without hepatic coma B18.2 and Bipolar 1 disorder F31.9 [facility] [address] [facility]NOTE 3] [id number] [address] [place] [address] Dec, Attention deficit hyperactiv ity disorder (ADHD), combined type F90.2 [facility] [address] [facility]NOTE 3] [id number] [address] [place] [address] Dec, Bipolar disorder, in partial remission, most recent episode hypomanic F31.71 ; Attention deficit hyperactivity disorder (ADHD), combined type F90.2 and Anxiety disorder, unspecified type F41.9 [facility] [address] [facility] 3] [id number] [address] [place] [address] Dec, Bipolar disorder, in partial remission, most recent episode hypomanic F31.71 ; Attention deficit hyperactivity disorder (ADHD), combined type F90.2 and Anxiety disorder, unspecified type F41.9 [facility] [address] [facility] 3] [id number] [address] [place] [address] Dec, Bipolar 1 disorder F31.9 and Attention deficit R41.840 [facility] [address] [facility]NOTE 3] [id number] [address] [place] [address] Oct, Other chronic pain G89.29 ; Alopecia L65.9 and Screening, lipid Z13.220 [facility] [address] [facility]] [id number] [address] [place] [address] Oct, [place] [address] [facility]NOTE 3] [id number] [address] [place] [address] Aug, [facility] [address] [facility] 3] [id number] [address] [place] [address] Aug, Eustachian tube dysfunction, right H69.81 ; Vertigo R42 and Other chronic pain G89.29 [facility] [address] [id number] [address] [place] [address] Aug, [facility] [address] [id number] [address] [place] [address] Jun, [facility] [address] [id number] [address] [place] [address] Jun, Low back pain M54.5 and Othe r chronic pain G89.29 [facility] [address] [id number] [address] [place] [address] Jun, [facility] [address] [id number] [address] [place] [address] May, [facility] [address] [id number] [address] [place] [address] Jan, [facility] [address] [id number] [address] [place] [address] Dec, [facility] [address] [id number] [address] [place] [address] Dec, [facility] [address] [id number] [address] [place] [address] Jun, [facility] [address] [id number] [address] [place] [address] Apr, Eustachian tube dysfunction, unspecified laterality H69.80 ; Hot flashes N95.1 and Encounter for immunization Z23 [facility] [address] [id number] [address] [place] [address] Jan, [facility] [address] [id number] [address] [place] [address] Jan, [facility] [address] [id number] [address] [place] [address] Jan, [facility] [address] [id number] [address] [place] [address] Jan, [facility] [address] [id number] [address] [place] [address] Jan, Encounter to establish care V65.8 ; Bipolar 1 disorder 296.7 ; Abdominal pain 789.00 ; Constipation 564.00 ; Hard of hearing 389.9 and Drug abuse 305.90 [facility] [address] [id number] [address] [place] [address] Dec, [facility] [address] [id number] [address] [place] [address] October, [facility] [address] [id number] [address] [place] [address] October, [facility] [address] [id number] [address] [place] [address] Oct, [facility] [address] [id number] [address] [place] [address] Oct, [facility] [address] [id number] [address] [place] [address] Oct, [facility] [address] [id number] [address] [place] [address] Aug, [facility] [address] [id number] [address] [place] [address] Aug, [facility] [address] [id number] [address] [place] [address] Aug, [facility] [address] [id number] [address] [place] [address] Aug, [facility] [address] [id number] [address] [place] [address] Aug, [facility] [address] [id number] [address] [place] [address] Aug, [facility] [address] [id number] [address] [place] [address], [place] [address] Aug, 2014 [facility] [address] [id number] [address] [place] [address], [place] [address] Aug, 2014 [facility] [address] [id number] [address] [place] [address], [place] [address] Aug, 2014 [facility] [address] [id number] [address] [place] [address], [place] [address] Aug, 2014 [facility] [address] [id number] [address] [place] [address], [place] [address] Aug, 2014 [facility] [address] [id number] [address] [place] [address], [place] [address] Aug, 2014 [facility] [address] [id number] [address] [place] [address], [place] [address] Aug, 2014 [facility] [address] [id number] [address] [place] [address], [place] [address] Aug, 2014 [facility] [address] [id number] [address] [place] [address], [place] [address] Aug, [facility] [address] [id number] [address] [place] [address], [place] [address] Jul, [facility] [address] [id number] [address] [place] [address], [place] [address] Jul, [facility] [address] [id number] [address] [place] [address], [place] [address] Jul, [facility] [address] [id number] [address] [place] [address], [place] [address] Jul, [facility] [address] [id number] [address] [place] [address], [place] [address] Jul, [facility] [address] [id number] [address] [place] [address], [place] [address] Jul, [facility] [address] [id number] [address] [place] [address], [place] [address] Jul, [facility] [address] [id number] [address] [place] [address], [place] [address] Jul, [facility] [address] [id number] [address] [place] [address], [place] [address] Jun, [facility] [address] [id number] [address] [place] [address], [place] [address] Jun, [facility] [address] [id number] [address] [place] [address], [place] [address] Jun, [facility] [address] [id number] [address] [place] [address], [place] [address] Jun, [facility] [address] [id number] [address] [place] [address], [place] [address] Jun, [facility] [address] [id number] [address] [place] [address], [place] [address] Jun, [facility] [address] [id number] [address] [place] [address], [place] [address] Jun, [facility] [address] [id number] [address] [place] [address], [place] [address] Jun, [facility] [address] [id number] [address] [place] [address], [place] [address] Jun, [facility] [address] [id number] [address] [place] [address], [place] [address] Jun, [facility] [address] [id number] [address] [place] [address], [place] [address] Jun, [facility] [address] [id number] [address] [place] [address], [place] [address] May, [facility] [address] [id number] [address] [place] [address], [place] [address] May, [facility] [address] [id number] [address] [place] [address], [place] [address] May, [facility] [address] [id number] [address] [place] [address], [place] [address] May, [facility] [address] [id number] [address] [place] [address], [place] [address] May, [facility] [address] [id number] [address] [place] [address], [place] [address] May, [facility] [address] [id number] [address] [place] [address], [place] [address] May, [facility] [address] [id number] [address] [place] [address], [place] [address] Apr, [facility] [address] [id number] [address] [place] [address], [place] [address] Apr, [facility] [address] [id number] [address] [place] [address], [place] [address] Apr, [facility] [address] [id number] [address] [place] [address], [place] [address] Apr, [facility] [address] [id number] [address] [place] [address], [place] [address] Apr, [facility] [address] [id number] [address] [place] [address], [place] [address] Apr, [facility] [address] [id number] [address] [place] [address], [place] [address] Mar, [facility] [address] [id number] [address] [place] [address], [place] [address] 29 Mar, 2013 [facility] [address] [id number] [address] [place] [address], [place] [address] 10 Mar, 2013 [facility] [address] [id number] [address] [place] [address], [place] [address] 10 Mar, 2013 [facility] [address] [id number] [address] [place] [address], [place] [address] Mar, 2013 [facility] [address] [id number] [address] [place] [address], [place] [address] Mar, [facility] [address] [id number] [address] [place] [address], [place] [address] Jan, [facility] [address] [id number] [address] [place] [address], [place] [address] Jan, [facility] [address] [id number] [address] [place] [address], [place] [address] Jan, [facility] [address] [id number] [address] [place] [address], [place] [address] Jan, [facility] [address] [id number] [address] [place] [address], [place] [address] Dec, [facility] [address] [id number] [address] [place] [address], [place] [address] Dec, [facility] [address] [id number] [address] [place] [address], [place] [address] Dec, [facility] [address] [id number] [address] [place] [address], [place] [address] Dec, [facility] [address] [id number] [address] [place] [address], [place] [address] Dec, [facility] [address] [id number] [address] [place] [address], [place] [address] Dec, [facility] [address] [id number] [address] [place] [address], [place] [address] Dec, [facility] [address] [id number] [address] [place] [address], [place] [address] Dec, [facility] [address] [id number] [address] [place] [address], [place] [address] Dec, [facility] [address] [id number] [address] [place] [address], [place] [address] Dec, [facility] [address] [id number] [address] [place] [address], [place] [address] Dec, [facility] [address] [id number] [address] [place] [address], [place] [address] Dec, [facility] [address] [id number] [address] [place] [address], [place] [address] October, [facility] [address] [id number] [address] [place] [address], [place] [address] October, [facility] [address] [id number] [address] [place] [address], [place] [address] October, [facility] [address] [id number] [address] [place] [address], [place] [address] October, [facility] [address] [id number] [address] [place] [address], [place] [address] October, [facility] [address] [id number] [address] [place] [address], [place] [address] October, [facility] [address] [id number] [address] [place] [address], [place] [address] Oct, [facility] [address] [id number] [address] [place] [address], [place] [address] Oct, [facility] [address] [id number] [address] [place] [address], [place] [address] Oct, [facility] [address] [id number] [address] [place] [address], [place] [address] Oct, [facility] [address] [id number] [address] [place] [address], [place] [address] Oct, [facility] [address] [id number] [address] [place] [address], [place] [address] Oct, [facility] [address] [id number] [address] [place] [address], [place] [address] Oct, [facility] [address] [id number] [address] [place] [address], [place] [address] Oct, [facility] [address] [id number] [address] [place] [address], [place] [address] Oct, [facility] [address] [id number] [facility] [place] [address] 09 Oct, 2013 [facility] [address] [id number] [facility] [place] [address] Oct, [facility] [address] [id number] [address] [place] [address], [place] [address] Oct, [facility] [address] [id number] [address] [place] [address], [place] [address] Aug, [facility] [address] [id number] [address] [place] [address], [place] [address] Aug, [facility] [address] [id number] [address] [place] [address], [place] [address] Aug, [facility] [address] [id number] [address] [place] [address], [place] [address] Aug, [facility] [address] [id number] [address] [place] [address], [place] [address] Aug, [facility] [address] [id number] [address] [place] [address], [place] [address] 05 Aug, 2013 [facility] [address] [id number] [address] [place] [address], [place] [address] Aug, [facility] [address] [id number] [address] [place] [address], [place] [address] Aug, [facility] [address] [id number] [address] [place] [address], [place] [address] Aug, [facility] [address] [id number] [address] [place] [address], [place] [address] Aug, [facility] [address] [id number] [address] [place] [address], [place] [address] Aug, [facility] [address] [id number] [address] [place] [address], [place] [address] Aug, [facility] [address] [id number] [address] [place] [address], [place] [address] Aug, [facility] [address] [id number] [address] [place] [address], [place] [address] 20 Aug, 2013 [facility] [address] [id number] [address] [place] [address], [place] [address] 14 Aug, 2013 [facility] [address] [id number] [address] [place] [address], [place] [address] 14 Aug, 2013 [facility] [address] [id number] [address] [place] [address], [place] [address] 14 Aug, 2013 [facility] [address] [id number] [address] [place] [address], [place] [address] 14 Aug, 2013 [facility] [address] [id number] [address] [place] [address], [place] [address] 07 Aug, 2013 [facility] [address] [id number] [address] [place] [address], [place] [address] 07 Aug, 2013 [facility] [address] [id number] [address] [place] [address], [place] [address] 06 Aug, 2013 [facility] [address] [id number] [address] [place] [address], [place] [address] 06 Aug, 2013 [facility] [address] [id number] [address] [place] [address], [place] [address] 04 Aug, 2013 [facility] [address] [id number] [address] [place] [address], [place] [address] 04 Aug, 2013 [facility] [address] [id number] [address] [place] [address], [place] [address] Aug, [facility] [address] [id number] [address] [place] [address], [place] [address] Jul, [facility] [address] [id number] [address] [place] [address], [place] [address] Jul, [facility] [address] [id number] [address] [place] [address], [place] [address] Jul, [facility] [address] [id number] [address] [place] [address], [place] [address] Jul, [facility] [address] [id number] [address] [place] [address], [place] [address] Jul, [facility] [address] [id number] [address] [place] [address], [place] [address] Jul, [facility] [address] [id number] [address] [place] [address], [place] [address] Jul, [facility] [address] [id number] [address] [place] [address], [place] [address] Jul, [facility] [address] [id number] [address] [place] [address], [place] [address] Jul, [facility] [address] [id number] [address] [place] [address], [place] [address] Jul, [facility] [address] [id number] [address] [place] [address], [place] [address] Jul, [facility] [address] [id number] [address] [place] [address], [place] [address] Jul, [facility] [address] [id number] [address] [place] [address], [place] [address] Jul, [facility] [address] [id number] [address] [place] [address], [place] [address] Jul, [facility] [address] [id number] [address] [place] [address], [place] [address] Jul, [facility] [address] [id number] [address] [place] [address], [place] [address] Jul, [facility] [address] [id number] [address] [place] [address], [place] [address] Jul, [facility] [address] [id number] [address] [place] [address], [place] [address] Jul, [facility] [address] [id number] [address] [place] [address], [place] [address] Jul, [facility] [address] [id number] [address] [place] [address], [place] [address] Jul, [facility] [address] [id number] [address] [place] [address], [place] [address] Jun, [facility] [address] [id number] [address] [place] [address], [place] [address] Jun, [facility] [address] [id number] [address] [place] [address], [place] [address] Jun, [facility] [address] [id number] [address] [place] [address], [place] [address] Jun, [facility] [address] [id number] [address] [place] [address], [place] [address] Jun, [facility] [address] [id number] [address] [place] [address], [place] [address] Jun, [facility] [address] [id number] [address] [place] [address], [place] [address] Jun, [facility] [address] [id number] [address] [place] [address], [place] [address] Jun, [facility] [address] [id number] [address] [place] [address], [place] [address] Jun, [facility] [address] [id number] [address] [place] [address], [place] [address] Jun, [facility] [address] [id number] [address] [place] [address], [place] [address] Jun, [facility] [address] [id number] [address] [place] [address], [place] [address] Jun, [facility] [address] [id number] [address] [place] [address], [place] [address] Jun, [facility] [address] [id number] [address] [place] [address], [place] [address] Jun, [facility] [address] [id number] [address] [place] [address], [place] [address] 20 Jun, 2013 [facility] [address] [id number] [address] [place] [address], [place] [address] 18 Jun, 2013 [facility] [address] [id number] [address] [place] [address], [place] [address] 18 Jun, 2013 [facility] [address] [id number] [address] [place] [address], [place] [address] 17 Jun, 2013 [facility] [address] [id number] [address] [place] [address], [place] [address] 17 Jun, 2013 [facility] [address] [id number] [address] [place] [address], [place] [address] 13 Jun, 2013 [facility] [address] [id number] [address] [place] [address], [place] [address] 12 Jun, 2013 [facility] [address] [id number] [address] [place] [address], [place] [address] 12 Jun, 2013 [facility] [address] [id number] [address] [place] [address], [place] [address] 09 Jun, 2013 [facility] [address] [id number] [address] [place] [address], [place] [address] 05 Jun, 2013 [facility] [address] [id number] [address] [place] [address], [place] [address] 05 Jun, 2013 [facility] [address] [id number] [address] [place] [address], [place] [address] 04 Jun, 2013 [facility] [address] [id number] [address] [place] [address], [place] [address] 04 Jun, 2013 [facility] [address] [id number] [address] [place] [address], [place] [address] 17 May, 2013 [facility] [address] [id number] [address] [place] [address], [place] [address] 17 May, 2013 [facility] [address] [id number] [address] [place] [address], [place] [address] May, [facility] [address] [id number] [address] [place] [address], [place] [address] May, [facility] [address] [id number] [address] [place] [address], [place] [address] May, [facility] [address] [id number] [address] [place] [address], [place] [address] May, [facility] [address] [id number] [address] [place] [address], [place] [address] Apr, [facility] [address] [id number] [address] [place] [address], [place] [address] Apr, [facility] [address] [id number] [address] [place] [address], [place] [address] Apr, [facility] [address] [id number] [address] [place] [address], [place] [address] Apr, [facility] [address] [id number] [address] [place] [address], [place] [address] Apr, [facility] [address] [id number] [address] [place] [address], [place] [address] Apr, [facility] [address] [id number] [address] [place] [address], [place] [address] Apr, [facility] [address] [id number] [address] [place] [address], [place] [address] Apr, [facility] [address] [id number] [address] [place] [address], [place] [address] 26 Mar, 2013 [facility] [address] [id number] [address] [place] [address], [place] [address] 24 Sep2012 [facility] [address] [id number] [address] [place] [address], [place] [address] 17 Mar, 2013 [facility] [address] [id number] [address] [place] [address], [place] [address] 17 Mar, 2013 [facility] [address] [id number] [address] [place] [address] [place] [address] 11 Mar, 2013 [facility] [address] [id number] [address] [place] [address], [place] [address] 10 Mar, 2013 [facility] [address] [id number] [address] [place] [address], [place] [address] 05 Mar, 2013 [facility] [address] [id number] [address] [place] [address], [place] [address] 04 Mar, 2013 [facility] [address] [id number] [address] [place] [address], [place] [address] 20 Jan, 2013 [facility] [address] [id number] [address] [place] [address], [place] [address] Jan, [facility] [address] [id number] [address] [place] [address], [place] [address] 14 Jan, 2013 [facility] [address] [id number] [address] [place] [address], [place] [address] Jan, [facility] [address] [id number] [address] [place] [address], [place] [address] Jan, [facility] [address] [id number] [address] [place] [address], [place] [address] Jan, [facility] [address] [id number] [address] [place] [address], [place] [address] Dec, [facility] [address] [id number] [address] [place] [address], [place] [address] Dec, [facility] [address] [id number] [address] [place] [address], [place] [address] Dec, [facility] [address] [id number] [address] [place] [address], [place] [address] Dec, [facility] [address] [id number] [address] [place] [address], [place] [address] Dec, [facility] [address] [id number] [address] [place] [address], [place] [address] 17 Dec, 2012 [facility] [address] [id number] [address] [place] [address], [place] [address] 16 Dec, 2012 [facility] [address] [id number] [address] [place] [address], [place] [address] 16 Dec, 2012 [facility] [address] [id number] [address] [place] [address], [place] [address] 15 Dec, 2012 [facility] [address] [id number] [address] [place] [address], [place] [address] 10 Dec, 2012 [facility] [address] [id number] [address] [place] [address], [place] [address] 28 Dec, 2012 [facility] [address] [id number] [address] [place] [address], [place] [address] Dec, [facility] [address] [id number] [address] [place] [address], [place] [address] Dec, [facility] [address] [id number] [address] [place] [address], [place] [address] Dec, [facility] [address] [id number] [address] [place] [address], [place] [address] Dec, [facility] [address] [id number] [address] [place] [address], [place] [address] Dec, [facility] [address] [id number] [address] [place] [address], [place] [address] October, [facility] [address] [id number] [address] [place] [address], [place] [address] October, [facility] [address] [id number] [address] [place] [address], [place] [address] October, [facility] [address] [id number] [address] [place] [address], [place] [address] October, [facility] [address] [id number] [address] [place] [address], [place] [address] October, [facility] [address] [id number] [address] [place] [address], [place] [address] October, [facility] [address] [id number] [address] [place] [address], [place] [address] October, [facility] [address] [id number] [address] [place] [address], [place] [address] Oct, [facility] [address] [id number] [address] [place] [address], [place] [address] Oct, [facility] [address] [id number] [address] [place] [address], [place] [address] Oct, [facility] [address] [id number] [address] [place] [address], [place] [address] Oct, [facility] [address] [id number] [address] [place] [address], [place] [address] Oct, [facility] [address] [id number] [address] [place] [address], [place] [address] Oct, [facility] [address] [id number] [address] [place] [address], [place] [address] Oct, [facility] [address] [id number] [address] [place] [address], [place] [address] 15 Oct, 2012 [facility] [address] [id number] [address] [place] [address], [place] [address] Oct, [facility] [address] [id number] [address] [place] [address], [place] [address] Oct, [facility] [address] [id number] [address] [place] [address], [place] [address] Oct, [facility] [address] [id number] [address] [place] [address], [place] [address] Oct, [facility] [address] [id number] [address] [place] [address], [place] [address] Aug, [facility] [address] [id number] [address] [place] [address], [place] [address] Aug, [facility] [address] [id number] [address] [place] [address], [place] [address] 12 Aug, 2012 [facility] [address] [id number] [address] [place] [address], [place] [address] 06 Aug, 2012 [facility] [address] [id number] [address] [place] [address], [place] [address] 05 Aug, 2012 [facility] [address] [id number] [address] [place] [address], [place] [address] 05 Aug, 2012 [facility] [address] [id number] [address] [place] [address], [place] [address] 20 Aug, 2012 [facility] [address] [id number] [address] [place] [address], [place] [address] 14 Aug, 2012 [facility] [address] [id number] [address] [place] [address], [place] [address] 12 Aug, 2012 [facility] [address] [id number] [address] [place] [address], [place] [address] Aug, [facility] [address] [id number] [address] [place] [address], [place] [address] Jul, [facility] [address] [id number] [address] [place] [address], [place] [address] Jul, [facility] [address] [id number] [address] [place] [address], [place] [address] Jul, [facility] [address] [id number] [address] [place] [address], [place] [address] Jun, [facility] [address] [id number] [address] [place] [address], [place] [address] Jun, [facility] [address] [id number] [address] [place] [address], [place] [address] Jun, [facility] [address] [id number] [address] [place] [address], [place] [address] Jun, [facility] [address] [id number] [address] [place] [address], [place] [address] Jun, [facility] [address] [id number] [address] [place] [address], [place] [address] 14 Jun, 2012 [facility] [address] [id number] [address] [place] [address], [place] [address] 14 Jun, 2012 [facility] [address] [id number] [address] [place] [address], [place] [address] 13 Jun, 2012 [facility] [address] [id number] [address] [place] [address], [place] [address] 13 Jun, 2012 [facility] [address] [id number] [address] [place] [address], [place] [address] 11 Jun, 2012 [facility] [address] [id number] [address] [place] [address], [place] [address] 11 Jun, 2012 [facility] [address] [id number] [address] [place] [address], [place] [address] 11 Jun, 2012 [facility] [address] [id number] [address] [place] [address], [place] [address] 11 Jun, 2012 [facility] [address] [id number] [address] [place] [address], [place] [address] 07 Jun, 2012 [facility] [address] [id number] [address] [place] [address], [place] [address] 07 Jun, 2012 [facility] [address] [id number] [address] [place] [address], [place] [address] 06 Jun, 2012 [facility] [address] [id number] [address] [place] [address], [place] [address] 06 Jun, 2012 [facility] [address] [id number] [address] [place] [address], [place] [address] Jun, [facility] [address] [id number] [address] [place] [address], [place] [address] 06 Jun, 2012 [facility] [address] [id number] [address] [place] [address], [place] [address] 05 Jun, 2012 [facility] [address] [id number] [address] [place] [address], [place] [address] Jun, [facility] [address] [id number] [address] [place] [address], [place] [address] Jun, [facility] [address] [id number] [address] [place] [address], [place] [address] Jun, [facility] [address] [id number] [address] [place] [address], [place] [address] May, [facility] [address] [id number] [address] [place] [address], [place] [address] May, [facility] [address] [id number] [address] [place] [address], [place] [address] May, [facility] [address] [id number] [address] [place] [address], [place] [address] May, [facility] [address] [id number] [address] [place] [address], [place] [address] May, [facility] [address] [id number] [address] [place] [address], [place] [address] May, [facility] [address] [id number] [address] [place] [address], [place] [address] May, [facility] [address] [id number] [address] [place] [address], [place] [address] May, [facility] [address] [id number] [address] [place] [place] [address], [place] [address] Apr, [facility] [address] [id number] [address] [place] [address] Apr, [facility] [address] [id number] [address] [place] [address], [place] [address] Apr, [facility] [address] [id number] [address] [place] [address], [place] [address] Apr, [facility] [address] [id number] [address] [place] [address] Apr, [facility] [address] [id number] [address] [place] [address], [place] [address] Apr, [facility] [address] [id number] [address] [place] [address], [place] [address] Apr, [facility] [address] [id number] [address] [place] [address], [place] [address] Apr, [facility] [address] [id number] [address] [place] [address], [place] [address] Apr, [facility] [address] [id number] [address] [place] [address], [place] [address] Apr, [facility] [address] [id number] [address] [place] [address], [place] [address] Apr, [facility] [address] [id number] [address] [place] [address], [place] [address] Apr, [facility] [address] [id number] [address] [place] [address], [place] [address] Mar, [facility] [address] [id number] [address] [place] [address], [place] [address] 18 Mar, 2012 [facility] [address] [id number] [address] [place] [address] Mar, [facility] [address] [id number] [address] [place] [address] Mar, [facility] [address] [id number] [address] [place] [id number] Mar, [facility] [address] [id number] [address] [place] [id number] Mar, [facility] [address] [id number] [address] [place] [address], [place] [address] Mar, [facility] [address] [id number] [address] [place] [address], [place] [address] Jan, [facility] [address] [id number] [address] [place] [address] Jan, [facility] [address] [id number] [facility] [id number] Jan, [facility] [address] [id number] [facility] [id number] Jan, [facility] [address] [id number] [address] [place] [address], [place] [address] Jan, [facility] [address] [id number] [address] [place] [address], [place] [address] Jan, [facility] [address] [id number] [address] [place] [address], [place] [address] Jan, [facility] [address] [id number] [address] [place] [address], [place] [address] Jan, [facility] [address] [id number] [address] [place] [address], [place] [address] Jan, [facility] [address] [id number] [address] [place] [address], [place] [address] Jan, [facility] [address] [id number] [address] [place] [address], [place] [address] Jan, [facility] [address] [id number] [address] [place] [address], [place] [address] Dec, [facility] [address] [id number] [address] [place] [address], [place] [address] Dec, [facility] [address] [id number] [address] [place] [address], [place] [address] Dec, [facility] [address] [id number] [address] [place] [address], [place] [address] Dec, [facility] [address] [id number] [address] [place] [address], [place] [address] Dec, [facility] [address] [id number] [address] [place] [address], [place] [address] Dec, [facility] [address] [id number] [address] [place] [address] [place] [address] 18 Jan, 2012 [facility] [address] [id number] [address] [place] [address], [place] [address] 17 Jan, 2012 [facility] [address] [id number] [address] [place] [address], [place] [address] 16 Jan, 2012 [facility] [address] [id number] [address] [place] [address], [place] [address] 13 Jan, 2012 [facility] [address] [id number] [address] [place] [address], [place] [address] 13 Jan, 2012 [facility] [address] [id number] [address] [place] [address], [place] [address] 02 Jan, 2012 [facility] [address] [id number] [address] [place] [address], [place] [address] Dec, [facility] [address] [id number] [address] [place] [address], [place] [address] Dec, [facility] [address] [id number] [address] [place] [address], [place] [address] Dec, [facility] [address] [id number] [address] [place] [address], [place] [address] Dec, [facility] [address] [id number] [address] [place] [address], [place] [address] 15 Dec, 2011 [facility] [address] [id number] [address] [place] [address], [place] [address] Dec, [facility] [address] [id number] [address] [place] [address], [place] [address] Dec, [facility] [address] [id number] [address] [place] [address], [place] [address] October, [facility] [address] [id number] [address] [place] [address], [place] [address] October, [facility] [address] [id number] [address] [place] [address], [place] [address] October, [facility] [address] [id number] [address] [place] [address], [place] [address] October, [facility] [address] [id number] [address] [place] [address], [place] [address] October, [facility] [address] [id number] [address] [place] [address], [place] [address] October, [facility] [address] [id number] [address] [place] [address], [place] [address] Oct, [facility] [address] [id number] [address] [place] [address], [place] [address] 24 Oct, 2011 [facility] [address] [id number] [address] [place] [address], [place] [address] Oct, [facility] [address] [id number] [address] [place] [address], [place] [address] Oct, [facility] [address] [id number] [address] [place] [address], [place] [address] Oct, [facility] [address] [id number] [address] [place] [address], [place] [address] Oct, [facility] [address] [id number] [address] [place] [address], [place] [address] Oct, [facility] [address] [id number] [address] [place] [address], [place] [address] Aug, [facility] [address] [id number] [address] [place] [address], [place] [address] 29 Sep, 2011 [facility] [address] [id number] [address] [place] [address], [place] [address] 19 Sep, 2011 [facility] [address] [id number] [address] [place] [address], [place] [address] 13 Sep, 2011 [facility] [address] [id number] [address] [place] [address], [place] [address] 05 Sep, 2011 [facility] [address] [id number] [address] [place] [address], [place] [address] Aug, [facility] [address] [id number] [address] [place] [address], [place] [address] Aug, [facility] [address] [id number] [address] [place] [address], [place] [address] Aug, [facility] [address] [id number] [address] [place] [address], [place] [address] Aug, [facility] [address] [id number] [address] [place] [address], [place] [address] Jul, [facility] [address] [id number] [address] [place] [address], [place] [address] Jul, [facility] [address] [id number] [address] [place] [address], [place] [address] Jul, [facility] [address] [id number] [address] [place] [address], [place] [address] Jul, [facility] [address] [id number] [address] [place] [address], [place] [address] Jun, [facility] [address] [id number] [address] [place] [address], [place] [address] Jun, [facility] [address] [id number] [address] [place] [address], [place] [address] May, [facility] [address] [id number] [address] [place] [address], [place] [address] May, [facility] [address] [id number] [address] [place] [address], [place] [address] May, [facility] [address] [id number] [address] [place] [address], [place] [address] May, [facility] [address] [id number] [address] [place] [address], [place] [address] 07 May, 2011 [facility] [address] [id number] [address] [place] [address], [place] [address] Apr, [facility] [address] [id number] [address] [place] [address] Apr, [facility] [address] [id number] [address] [place] [address] Apr, [facility] [address] [id number] [address] [place] [address] Jan, [facility] [address] [id number] [address] [place] [address] Dec, [facility] [address] [id number] [address] [place] [address] October, [facility] [address] [id number] [address] [place] [address] Jun, [facility] [address] [id number] [address] [place] [address] Apr, [facility] [address] [id number] [address] [place] [address] Apr, [facility] [address] [id number] [address] [place] [address] Apr, [facility] [address] [id number] [address] [place] [address] Jun, IMMUNIZATIONS No Known Immunizations SOCIAL HISTORY Never Assessed REASON FOR VISIT [facility] [place] [...]
--- OUTSIDE RECORDS SUMMARY | 2020-01-25 13:01 | XMS REPORT ---
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 Name Role Phone Migration, Doctor Unavailable Unavailable PROBLEMS Type Condition ICD9-CM Code [id number] Code Onset Dates Condition S tatus SNOMED Code Problem Attention deficit R41.840 Active 76 864631 Problem Chronic hepatitis C without hepatic coma B18.2 Active 017554801 Problem Cannabis abuse F12.10 Active 94271 009 Problem Bipolar disorder, in partial remission, most rec ent episode hypomanic F31.71 Active 318304352 Problem Attention deficit hyperactivity disorder (ADHD), combi luciano type F90.2 Active 27671566 Problem Bipolar 1 disorder F31.9 Active 3 83906239 Problem H/O laminectomy Z98.89 Active 1616 84294 Problem Other chronic pain G89.29 Active 8 7688449 Problem Anxiety disorder, unspecified type F41.9 Active [id number] ALLERGIES No Information ENCOUNTERS Encounter Location Date Diagnosis [facility] [address] [facility] [id number] [address] [place] [address] Oct, [facility] [address] [facility] [id number] [address] [place] [address] Aug, Bipolar disorder, in partial remission, most recent episode hypomanic F31.71 ; Attention deficit hyperactivity disorder (ADHD), combined type F90.2 and Anxiety disorder, unspecified type F41.9 [facility] [address] [facility] [id number] [address] [place] [address] Aug, [facility] [address] [facility] [id number] [address] [place] [address] Aug, Bipolar disorder, in partial remission, most recent episode hypomanic F31.71 [facility] [address] [facility] [id number] [address] [place] [address] Aug, [facility] [address] [id number] [address] [place] [address] Aug, Bipolar disorder, in partial remission, most recent episode hypomanic F31.71 [facility] [address] [id number] [address] [place] [address] Aug, Bipolar disorder, in partial remission, most recent episode hypomanic F31.71 ; Attention deficit hyperactivity disorder (ADHD), combined type F90.2 and Anxiety disorder, unspecified type F41.9 [facility] [address] [id number] [address] [place] [address] Aug, Low back pain M54.5 and Pain in left wrist M25.532 [facility] [address] [id number] [address] [place] [address] Aug, [facility] [address] [id number] [address] [place] [address] Jun, [facility] [address] [facility] [id number] [address] [place] [address] Apr, Bipolar disorder, in partial remission, most recent episode hypomanic F31.71 [facility] [address] [id number] [address] [place] [address] Apr, [facility] [address] [id number] [address] [place] [address] Apr, Bipolar disorder, in partial remission, most recent episode hypomanic F31.71 ; Attention deficit hyperactivity disorder (ADHD), combined type F90.2 ; Anxiety disorder, unspecified type F41.9 and Other fdc (current) 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 Z79.899 [facility] [address] [id number] [address] [place] [address] Apr, Bipolar disorder, in partial remission, most recent episode hypomanic F31.71 [facility] [address] [id number] [address] [place] [address] Apr, Bipolar disorder, in partial remission, most recent episode hypomanic F31.71 [facility] [address] [facility] [id number] [address] [place] [address] Mar, [facility] [address] [id number] [address] [place] [address] Mar, Bipolar disorder, in partial remission, most recent episode hypomanic F31.71 ; Encounter for immunization Z23 and Low back pain M54.5 [facility] [address] [id number] [address] [place] [address] Mar, Bipolar disorder, in partial remission, most recent episode hypomanic F31.71 [facility] [address] [id number] [address] [place] [address] Mar, Bipolar disorder, in partial remission, most recent episode hypomanic F31.71 [facility] [address] [facility] [id number] [address] [place] [address] Jan, Bipolar disorder, in partial remission, most recent episode hypomanic F31.71 [facility] [address] [facility] [id number] [address] [place] [address] Jan, Bipolar disorder, in partial remission, most recent episode hypomanic F31.71 [facility] [address] [facility] [id number] [address] [place] [address] Dec, Bipolar disorder, in partial remission, most recent episode hypomanic F31.71 [facility] [address] [facility] [id number] [address] [place] [address] Dec, Bipolar disorder, in partial remission, most recent episode hypomanic F31.71 ; Attention deficit hyperactivity disorder (ADHD), combined type F90.2 ; Anxiety disorder, unspecified type F41.9 and Other fdc (current) 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 Z79.899 [facility] [address] [facility] [id number] [address] [place] [address] Dec, Bipolar disorder, in partial remission, most recent episode hypomanic F31.71 [facility] [address] [facility] [id number] [address] [place] [address] Dec, Bipolar disorder, in partial remission, most recent episode hypomanic F31.71 [facility] [address] [id number] [address] [place] [address] October, Bipolar disorder, in partial remission, most recent episode hypomanic F31.71 [facility] [address] [id number] [address] [place] [address] October, [facility] [address] [id number] [address] [place] [address] October, [facility] [address] [id number] [address] [place] [address] Oct, Bipolar disorder, in partial remission, most recent episode hypomanic F31.71 ; Attention deficit hyperactivity disorder (ADHD), combined type F90.2 ; Anxiety disorder, unspecified type F41.9 and Encounter for drug screening Z02.83 [facility] [address] [id number] [address] [place] [address] Oct, Bipolar disorder, in partial remission, most recent episode hypomanic F31.71 [facility] [address] [id number] [address] [place] [address] Oct, Bipolar disorder, in partial remission, most recent episode hypomanic F31.71 [facility] [address] [id number] [address] [place] [address] Aug, Bipolar disorder, in partial remission, most recent episode hypomanic F31.71 [facility] [address] [id number] [address] [place] [address] Aug, Bipolar disorder, in partial remission, most recent episode hypomanic F31.71 [facility] [address] [id number] [address] [place] [address] Aug, Bipolar disorder, in partial remission, most recent episode hypomanic F31.71 [facility] [address] [id number] [address] [place] [address] Jul, Bipolar disorder, in partial remission, most recent episode hypomanic F31.71 ; Attention deficit hyperactivity disorder (ADHD), combined type F90.2 and Anxiety disorder, unspecified type F41.9 [facility] [address] [id number] [address] [place] [address] Jul, Bipolar disorder, in partial remission, most recent episode hypomanic F31.71 [facility] [address] [id number] [address] [place] [address] Jun, Bipolar disorder, in partial remission, most recent episode hypomanic F31.71 [facility] [address] [id number] [address] [place] [address] May, Bipolar disorder, in partial remission, most recent episode hypomanic F31.71 [facility] [address] [facility] [id number] [address] [place] [address] May, Bipolar disorder, in partial remission, most recent episode hypomanic F31.71 [facility] [address] [facility] [id number] [address] [place] [address] Apr, [facility] [address] [id number] [address] [place] [address] Apr, Bipolar disorder, in partial remission, most recent episode hypomanic F31.71 ; Attention deficit hyperactivity disorder (ADHD), combined type F90.2 ; Anxiety disorder, unspecified type F41.9 [address] F12.10 [facility] [address] [id number] [address] [place] [address] Apr, Attention deficit hyperactiv ity disorder (ADHD), combined type F90.2 [facility] [address] [id number] [address] [place] [address] Mar, Attention deficit hyperactiv ity disorder (ADHD), combined type F90.2 [facility] [address] [facility] [id number] [address] [place] [address] Mar, Anxiety disorder, unspecifie d type F41.9 [facility] [address] [facility] [id number] [address] [place] [address] Jan, Attention deficit hyperactiv ity disorder (ADHD), combined type F90.2 [facility] [address] [facility] [id number] [address] [place] [address] Jan, Anxiety disorder, unspecifie d type F41.9 [facility] [address] [facility] [id number] [address] [place] [address] Jan, Other chronic pain G89.29 ; Chronic hepatitis C without hepatic coma B18.2 and Bipolar [address] [facility] [address] [facility] [id number] [address] [place] [address] Dec, Attention deficit hyperactiv ity disorder (ADHD), combined type F90.2 [facility] [address] [facility] [id number] [address] [place] [address] Dec, Bipolar disorder, in partial remission, most recent episode hypomanic F31.71 ; Attention deficit hyperactivity disorder (ADHD), combined type F90.2 and Anxiety disorder, unspecified type F41.9 [facility] [address] [facility] [id number] [address] [place] [address] Dec, Bipolar disorder, in partial remission, most recent episode hypomanic F31.71 ; Attention deficit hyperactivity disorder (ADHD), combined type F90.2 and Anxiety disorder, unspecified type F41.9 [facility] [address] [facility] [id number] [address] [place] [address] Dec, Bipolar 1 disorder F31.9 and Attention deficit R41.840 [facility] [address] [facility] [id number] [address] [place] [address] Oct, Other chronic pain G89.29 ; Alopecia L65.9 and Screening, lipid Z13.220 [facility] [address] [facility] [id number] [address] [place] [address] Oct, [facility] [address] [facility] [id number] [address] [place] [address] Aug, [facility] [address] [facility] [id number] [address] [place] [address] Aug, Eustachian tube dysfunction, right H69.81 ; Vertigo R42 and Other chronic pain G89.29 [facility] [address] [id number] [address] [place] [address] Aug, [facility] [address] [id number] [address] [place] [address] Jun, [facility] [address] [id number] [address] [place] [address] Jun, Low back pain M54.5 and Othe r chronic pain G89.29 [facility] [address] [id number] [address] [place] [address] Jun, [facility] [address] [id number] [address] [place] [address] May, [facility] [address] [id number] [address] [place] [address] Jan, [facility] [address] [id number] [address] [place] [address] Dec, [facility] [address] [id number] [address] [place] [address] Dec, [facility] [address] [id number] [address] [place] [address] Jun, [facility] [address] [id number] [address] [place] [address] Apr, Eustachian tube dysfunction, unspecified laterality H69.80 ; Hot flashes N95.1 and Encounter for immunization Z23 [facility] [address] [id number] [address] [place] [address] Jan, [facility] [address] [id number] [address] [place] [address] Jan, [facility] [address] [id number] [address] [place] [address] Jan, [facility] [address] [id number] [address] [place] [address] Jan, [facility] [address] [id number] [address] [place] [address] Jan, Encounter to establish care V65.8 ; Bipolar 1 disorder 296.7 ; Abdominal pain 789.00 ; Constipation 564.00 ; Hard of hearing 389.[address] [facility] [address] [id number] [address] [place] [address] Dec, [facility] [address] [id number] [address] [place] [address] October, [facility] [address] [id number] [address] [place] [address] October, [facility] [address] [id number] [address] [place] [address] Oct, [facility] [address] [id number] [address] [place] [address] Oct, [facility] [address] [id number] [address] [place] [address] Oct, [facility] [address] [id number] [address] [place] [address] Aug, [facility] [address] [id number] [address] [place] [address] Aug, [facility] [address] [id number] [address] [place] [address] Aug, [facility] [address] [id number] [address] [place] [address] Aug, [facility] [address] [id number] [address] [place] [address] Aug, [facility] [address] [id number] [address] [place] [address] Aug, [facility] [address] [id number] [address] [place] [address], [place] [address] Aug, 2014 [facility] [address] [id number] [address] [place] [address], [place] [address] Aug, 2014 [facility] [address] [id number] [address] [place] [address], [place] [address] Aug, 2014 [facility] [address] [id number] [address] [place] [address], [place] [address] Aug, 2014 [facility] [address] [id number] [address] [place] [address], [place] [address] Aug, 2014 [facility] [address] [id number] [address] [place] [address], [place] [address] Aug, 2014 [facility] [address] [id number] [address] [place] [address], [place] [address] Aug, 2014 [facility] [address] [id number] [address] [place] [address], [place] [address] Aug, 2014 [facility] [address] [id number] [address] [place] [address], [place] [address] Aug, [facility] [address] [id number] [address] [place] [address], [place] [address] Jul, [facility] [address] [id number] [address] [place] [address], [place] [address] Jul, [facility] [address] [id number] [address] [place] [address], [place] [address] Jul, [facility] [address] [id number] [address] [place] [address], [place] [address] Jul, [facility] [address] [id number] [address] [place] [address], [place] [address] Jul, [facility] [address] [id number] [address] [place] [address], [place] [address] Jul, [facility] [address] [id number] [address] [place] [address], [place] [address] Jul, [facility] [address] [id number] [address] [place] [address], [place] [address] Jul, [facility] [address] [id number] [address] [place] [address], [place] [address] Jun, [facility] [address] [id number] [address] [place] [address], [place] [address] Jun, [facility] [address] [id number] [address] [place] [address], [place] [address] Jun, [facility] [address] [id number] [address] [place] [address], [place] [address] Jun, [facility] [address] [id number] [address] [place] [address], [place] [address] Jun, [facility] [address] [id number] [address] [place] [address], [place] [address] Jun, [facility] [address] [id number] [address] [place] [address], [place] [address] Jun, [facility] [address] [id number] [address] [place] [address], [place] [address] Jun, [facility] [address] [id number] [address] [place] [address], [place] [address] Jun, [facility] [address] [id number] [address] [place] [address], [place] [address] Jun, [facility] [address] [id number] [address] [place] [address], [place] [address] Jun, [facility] [address] [id number] [address] [place] [address], [place] [address] May, [facility] [address] [id number] [address] [place] [address], [place] [address] May, [facility] [address] [id number] [address] [place] [address], [place] [address] May, [facility] [address] [id number] [address] [place] [address], [place] [address] May, [facility] [address] [id number] [address] [place] [address], [place] [address] May, [facility] [address] [id number] [address] [place] [address], [place] [address] May, [facility] [address] [id number] [address] [place] [address], [place] [address] May, [facility] [address] [id number] [address] [place] [address], [place] [address] Apr, [facility] [address] [id number] [address] [place] [address], [place] [address] Apr, [facility] [address] [id number] [address] [place] [address], [place] [address] Apr, [facility] [address] [id number] [address] [place] [address], [place] [address] Apr, [facility] [address] [id number] [address] [place] [address], [place] [address] Apr, [facility] [address] [id number] [address] [place] [address], [place] [address] Apr, [facility] [address] [id number] [address] [place] [address], [place] [address] Mar, [facility] [address] [id number] [address] [place] [address], [place] [address] 29 Mar, 2013 [facility] [address] [id number] [address] [place] [address], [place] [address] 10 Mar, 2013 [facility] [address] [id number] [address] [place] [address], [place] [address] 10 Mar, 2013 [facility] [address] [id number] [address] [place] [address], [place] [address] Mar, 2013 [facility] [address] [id number] [address] [place] [address], [place] [address] Mar, [facility] [address] [id number] [address] [place] [address], [place] [address] Jan, [facility] [address] [id number] [address] [place] [address], [place] [address] Jan, [facility] [address] [id number] [address] [place] [address], [place] [address] Jan, [facility] [address] [id number] [address] [place] [address], [place] [address] Jan, [facility] [address] [id number] [address] [place] [address], [place] [address] Dec, [facility] [address] [id number] [address] [place] [address], [place] [address] Dec, [facility] [address] [id number] [address] [place] [address], [place] [address] Dec, [facility] [address] [id number] [address] [place] [address], [place] [address] Dec, [facility] [address] [id number] [address] [place] [address], [place] [address] Dec, [facility] [address] [id number] [address] [place] [address], [place] [address] Dec, [facility] [address] [id number] [address] [place] [address], [place] [address] Dec, [facility] [address] [id number] [address] [place] [address], [place] [address] Dec, [facility] [address] [id number] [address] [place] [address], [place] [address] Dec, [facility] [address] [id number] [address] [place] [address], [place] [address] Dec, [facility] [address] [id number] [address] [place] [address], [place] [address] Dec, [facility] [address] [id number] [address] [place] [address], [place] [address] Dec, [facility] [address] [id number] [address] [place] [address], [place] [address] October, [facility] [address] [id number] [address] [place] [address], [place] [address] October, [facility] [address] [id number] [address] [place] [address], [place] [address] October, [facility] [address] [id number] [address] [place] [address], [place] [address] October, [facility] [address] [id number] [address] [place] [address], [place] [address] October, [facility] [address] [id number] [address] [place] [address], [place] [address] October, [facility] [address] [id number] [address] [place] [address], [place] [address] Oct, [facility] [address] [id number] [address] [place] [address], [place] [address] Oct, [facility] [address] [id number] [address] [place] [address], [place] [address] Oct, [facility] [address] [id number] [address] [place] [address], [place] [address] Oct, [facility] [address] [id number] [address] [place] [address], [place] [address] Oct, [facility] [address] [id number] [address] [place] [address], [place] [address] Oct, [facility] [address] [id number] [address] [place] [address], [place] [address] Oct, [facility] [address] [id number] [address] [place] [address], [place] [address] Oct, [facility] [address] [id number] [address] [place] [address], [place] [address] Oct, [facility] [address] [id number] [address] [place] [address] Oct, 2013 [facility] [address] [id number] [address] [place] [address] Oct, [facility] [facility] [address] [id number] [address] [place] [address], [place] [address] Oct, [facility] [address] [id number] [address] [place] [address], [place] [address] Aug, [facility] [address] [id number] [address] [place] [address], [place] [address] Aug, [facility] [address] [id number] [address] [place] [address], [place] [address] Aug, [facility] [address] [id number] [address] [place] [address], [place] [address] Aug, [facility] [address] [id number] [address] [place] [address], [place] [address] Aug, [facility] [address] [id number] [address] [place] [address], [place] [address] 05 Aug, 2013 [facility] [address] [id number] [address] [place] [address], [place] [address] Aug, [facility] [address] [id number] [address] [place] [address], [place] [address] Aug, [facility] [address] [id number] [address] [place] [address], [place] [address] Aug, [facility] [address] [id number] [address] [place] [address], [place] [address] Aug, [facility] [address] [id number] [address] [place] [address], [place] [address] Aug, [facility] [address] [id number] [address] [place] [address], [place] [address] Aug, [facility] [address] [id number] [address] [place] [address], [place] [address] Aug, [facility] [address] [id number] [address] [place] [address], [place] [address] 20 Aug, 2013 [facility] [address] [id number] [address] [place] [address], [place] [address] 14 Aug, 2013 [facility] [address] [id number] [address] [place] [address], [place] [address] 14 Aug, 2013 [facility] [address] [id number] [address] [place] [address], [place] [address] 14 Aug, 2013 [facility] [address] [id number] [address] [place] [address], [place] [address] 14 Aug, 2013 [facility] [address] [id number] [address] [place] [address], [place] [address] 07 Aug, 2013 [facility] [address] [id number] [address] [place] [address], [place] [address] 07 Aug, 2013 [facility] [address] [id number] [address] [place] [address], [place] [address] 06 Aug, 2013 [facility] [address] [id number] [address] [place] [address], [place] [address] 06 Aug, 2013 [facility] [address] [id number] [address] [place] [address], [place] [address] 04 Aug, 2013 [facility] [address] [id number] [address] [place] [address], [place] [address] 04 Aug, 2013 [facility] [address] [id number] [address] [place] [address], [place] [address] Aug, [facility] [address] [id number] [address] [place] [address], [place] [address] Jul, [facility] [address] [id number] [address] [place] [address], [place] [address] Jul, [facility] [address] [id number] [address] [place] [address], [place] [address] Jul, [facility] [address] [id number] [address] [place] [address], [place] [address] Jul, [facility] [address] [id number] [address] [place] [address], [place] [address] Jul, [facility] [address] [id number] [address] [place] [address], [place] [address] Jul, [facility] [address] [id number] [address] [place] [address], [place] [address] Jul, [facility] [address] [id number] [address] [place] [address], [place] [address] Jul, [facility] [address] [id number] [address] [place] [address], [place] [address] Jul, [facility] [address] [id number] [address] [place] [address], [place] [address] Jul, [facility] [address] [id number] [address] [place] [address], [place] [address] Jul, [facility] [address] [id number] [address] [place] [address], [place] [address] Jul, [facility] [address] [id number] [address] [place] [address], [place] [address] Jul, [facility] [address] [id number] [address] [place] [address], [place] [address] Jul, [facility] [address] [id number] [address] [place] [address], [place] [address] Jul, [facility] [address] [id number] [address] [place] [address], [place] [address] Jul, [facility] [address] [id number] [address] [place] [address], [place] [address] Jul, [facility] [address] [id number] [address] [place] [address], [place] [address] Jul, [facility] [address] [id number] [address] [place] [address], [place] [address] Jul, [facility] [address] [id number] [address] [place] [address], [place] [address] Jul, [facility] [address] [id number] [address] [place] [address], [place] [address] Jun, [facility] [address] [id number] [address] [place] [address], [place] [address] Jun, [facility] [address] [id number] [address] [place] [address], [place] [address] Jun, [facility] [address] [id number] [address] [place] [address], [place] [address] Jun, [facility] [address] [id number] [address] [place] [address], [place] [address] Jun, [facility] [address] [id number] [address] [place] [address], [place] [address] Jun, [facility] [address] [id number] [address] [place] [address], [place] [address] Jun, [facility] [address] [id number] [address] [place] [address], [place] [address] Jun, [facility] [address] [id number] [address] [place] [address], [place] [address] Jun, [facility] [address] [id number] [address] [place] [address], [place] [address] Jun, [facility] [address] [id number] [address] [place] [address], [place] [address] Jun, [facility] [address] [id number] [address] [place] [address], [place] [address] Jun, [facility] [address] [id number] [address] [place] [address], [place] [address] Jun, [facility] [address] [id number] [address] [place] [address], [place] [address] Jun, [facility] [address] [id number] [address] [place] [address], [place] [address] 20 Jun, 2013 [facility] [address] [id number] [address] [place] [address], [place] [address] 18 Jun, 2013 [facility] [address] [id number] [address] [place] [address], [place] [address] 18 Jun, 2013 [facility] [address] [id number] [address] [place] [address], [place] [address] 17 Jun, 2013 [facility] [address] [id number] [address] [place] [address], [place] [address] 17 Jun, 2013 [facility] [address] [id number] [address] [place] [address], [place] [address] 13 Jun, 2013 [facility] [address] [id number] [address] [place] [address], [place] [address] 12 Jun, 2013 [facility] [address] [id number] [address] [place] [address], [place] [address] 12 Jun, 2013 [facility] [address] [id number] [address] [place] [address], [place] [address] 09 Jun, 2013 [facility] [address] [id number] [address] [place] [address], [place] [address] 05 Jun, 2013 [facility] [address] [id number] [address] [place] [address], [place] [address] 05 Jun, 2013 [facility] [address] [id number] [address] [place] [address], [place] [address] 04 Jun, 2013 [facility] [address] [id number] [address] [place] [address], [place] [address] 04 Jun, 2013 [facility] [address] [id number] [address] [place] [address], [place] [address] 17 May, 2013 [facility] [address] [id number] [address] [place] [address], [place] [address] 17 May, 2013 [facility] [address] [id number] [address] [place] [address], [place] [address] May, [facility] [address] [id number] [address] [place] [address], [place] [address] May, [facility] [address] [id number] [address] [place] [address], [place] [address] May, [facility] [address] [id number] [address] [place] [address], [place] [address] May, [facility] [address] [id number] [address] [place] [address], [place] [address] Apr, [facility] [address] [id number] [address] [place] [address], [place] [address] Apr, [facility] [address] [id number] [address] [place] [address], [place] [address] Apr, [facility] [address] [id number] [address] [place] [address], [place] [address] Apr, [facility] [address] [id number] [address] [place] [address], [place] [address] Apr, [facility] [address] [id number] [address] [place] [address], [place] [address] Apr, [facility] [address] [id number] [address] [place] [address], [place] [address] Apr, [facility] [address] [id number] [address] [place] [address], [place] [address] Apr, [facility] [address] [id number] [address] [place] [address], [place] [address] 26 Mar, 2013 [facility] [address] [id number] [address] [place] [address] [address] 24 Sep2012 [facility] [address] [id number] [address] [place] [address], [place] [address] 17 Mar, 2013 [facility] [address] [id number] [address] [place] [address], [place] [address] 17 Mar, 2013 [facility] [address] [id number] [address] [place] [address] [place] [address] 11 Mar, 2013 [facility] [address] [id number] [address] [place] [address], [place] [address] 10 Mar, 2013 [facility] [address] [id number] [address] [place] [address], [place] [address] 05 Mar, 2013 [facility] [address] [id number] [address] [place] [address], [place] [address] 04 Mar, 2013 [facility] [address] [id number] [address] [place] [address], [place] [address] 20 Jan, 2013 [facility] [address] [id number] [address] [place] [address], [place] [address] Jan, [facility] [address] [id number] [address] [place] [address], [place] [address] 14 Jan, 2013 [facility] [address] [id number] [address] [place] [address], [place] [address] Jan, [facility] [address] [id number] [address] [place] [address], [place] [address] Jan, [facility] [address] [id number] [address] [place] [address], [place] [address] Jan, [facility] [address] [id number] [address] [place] [address], [place] [address] Dec, [facility] [address] [id number] [address] [place] [address], [place] [address] Dec, [facility] [address] [id number] [address] [place] [address], [place] [address] Dec, [facility] [address] [id number] [address] [place] [address], [place] [address] Dec, [facility] [address] [id number] [address] [place] [address], [place] [address] Dec, [facility] [address] [id number] [address] [place] [address], [place] [address] 17 Dec, 2012 [facility] [address] [id number] [address] [place] [address], [place] [address] 16 Dec, 2012 [facility] [address] [id number] [address] [place] [address], [place] [address] 16 Dec, 2012 [facility] [address] [id number] [address] [place] [address], [place] [address] 15 Dec, 2012 [facility] [address] [id number] [address] [place] [address], [place] [address] 10 Dec, 2012 [facility] [address] [id number] [address] [place] [address], [place] [address] 28 Dec, 2012 [facility] [address] [id number] [address] [place] [address], [place] [address] Dec, [facility] [address] [id number] [address] [place] [address], [place] [address] Dec, [facility] [address] [id number] [address] [place] [address], [place] [address] Dec, [facility] [address] [id number] [address] [place] [address], [place] [address] Dec, [facility] [address] [id number] [address] [place] [address], [place] [address] Dec, [facility] [address] [id number] [address] [place] [address], [place] [address] October, [facility] [address] [id number] [address] [place] [address], [place] [address] October, [facility] [address] [id number] [address] [place] [address], [place] [address] October, [facility] [address] [id number] [address] [place] [address], [place] [address] October, [facility] [address] [id number] [address] [place] [address], [place] [address] October, [facility] [address] [id number] [address] [place] [address], [place] [address] October, [facility] [address] [id number] [address] [place] [address], [place] [address] October, [facility] [address] [id number] [address] [place] [address], [place] [address] Oct, [facility] [address] [id number] [address] [place] [address], [place] [address] Oct, [facility] [address] [id number] [address] [place] [address], [place] [address] Oct, [facility] [address] [id number] [address] [place] [address], [place] [address] Oct, [facility] [address] [id number] [address] [place] [address], [place] [address] Oct, [facility] [address] [id number] [address] [place] [address], [place] [address] Oct, [facility] [address] [id number] [address] [place] [address], [place] [address] Oct, [facility] [address] [id number] [address] [place] [address], [place] [address] 15 Oct, 2012 [facility] [address] [id number] [address] [place] [address], [place] [address] Oct, [facility] [address] [id number] [address] [place] [address], [place] [address] Oct, [facility] [address] [id number] [address] [place] [address], [place] [address] Oct, [facility] [address] [id number] [address] [place] [address], [place] [address] Oct, [facility] [address] [id number] [address] [place] [address], [place] [address] Aug, [facility] [address] [id number] [address] [place] [address], [place] [address] Aug, [facility] [address] [id number] [address] [place] [address], [place] [address] 12 Aug, 2012 [facility] [address] [id number] [address] [place] [address], [place] [address] 06 Aug, 2012 [facility] [address] [id number] [address] [place] [address], [place] [address] 05 Aug, 2012 [facility] [address] [id number] [address] [place] [address], [place] [address] 05 Aug, 2012 [facility] [address] [id number] [address] [place] [address], [place] [address] 20 Aug, 2012 [facility] [address] [id number] [address] [place] [address], [place] [address] 14 Aug, 2012 [facility] [address] [id number] [address] [place] [address], [place] [address] 12 Aug, 2012 [facility] [address] [id number] [address] [place] [address], [place] [address] Aug, [facility] [address] [id number] [address] [place] [address], [place] [address] Jul, [facility] [address] [id number] [address] [place] [address], [place] [address] Jul, [facility] [address] [id number] [address] [place] [address], [place] [address] Jul, [facility] [address] [id number] [address] [place] [address], [place] [address] Jun, [facility] [address] [id number] [address] [place] [address], [place] [address] Jun, [facility] [address] [id number] [address] [place] [address], [place] [address] Jun, [facility] [address] [id number] [address] [place] [address], [place] [address] Jun, [facility] [address] [id number] [address] [place] [address], [place] [address] Jun, [facility] [address] [id number] [address] [place] [address], [place] [address] 14 Jun, 2012 [facility] [address] [id number] [address] [place] [address], [place] [address] 14 Jun, 2012 [facility] [address] [id number] [address] [place] [address], [place] [address] 13 Jun, 2012 [facility] [address] [id number] [address] [place] [address], [place] [address] 13 Jun, 2012 [facility] [address] [id number] [address] [place] [address], [place] [address] 11 Jun, 2012 [facility] [address] [id number] [address] [place] [address], [place] [address] 11 Jun, 2012 [facility] [address] [id number] [address] [place] [address], [place] [address] 11 Jun, 2012 [facility] [address] [id number] [address] [place] [address], [place] [address] 11 Jun, 2012 [facility] [address] [id number] [address] [place] [address], [place] [address] 07 Jun, 2012 [facility] [address] [id number] [address] [place] [address], [place] [address] 07 Jun, 2012 [facility] [address] [id number] [address] [place] [address], [place] [address] 06 Jun, 2012 [facility] [address] [id number] [address] [place] [address], [place] [address] 06 Jun, 2012 [facility] [address] [id number] [address] [place] [address], [place] [address] Jun, [facility] [address] [id number] [address] [place] [address], [place] [address] 06 Jun, 2012 [facility] [address] [id number] [address] [place] [address], [place] [address] 05 Jun, 2012 [facility] [address] [id number] [address] [place] [address], [place] [address] Jun, [facility] [address] [id number] [address] [place] [address], [place] [address] Jun, [facility] [address] [id number] [address] [place] [address], [place] [address] Jun, [facility] [address] [id number] [address] [place] [address], [place] [address] May, [facility] [address] [id number] [address] [place] [address], [place] [address] May, [facility] [address] [id number] [address] [place] [address], [place] [address] May, [facility] [address] [id number] [address] [place] [address], [place] [address] May, [facility] [address] [id number] [address] [place] [address], [place] [address] May, [facility] [address] [id number] [address] [place] [address], [place] [address] May, [facility] [address] [id number] [address] [place] [address], [place] [address] May, [facility] [address] [id number] [address] [place] [address], [place] [address] May, [facility] [address] [id number] [address] [place] [address], [place] [address] Apr, [facility] [address] [id number] [address] [place] [address] Apr, [facility] [address] [id number] [address] [place] [address], [place] [address] Apr, [facility] [address] [id number] [address] [place] [address], [place] [address] Apr, [facility] [address] [id number] [address] [place] [address] Apr, [facility] [address] [id number] [address] [place] [address], [place] [address] Apr, [facility] [address] [id number] [address] [place] [address], [place] [address] Apr, [facility] [address] [id number] [address] [place] [address], [place] [address] Apr, [facility] [address] [id number] [address] [place] [address], [place] [address] Apr, [facility] [address] [id number] [address] [place] [address], [place] [address] Apr, [facility] [address] [id number] [address] [place] [address], [place] [address] Apr, [facility] [address] [id number] [address] [place] [address], [place] [address] Apr, [facility] [address] [id number] [address] [place] [address], [place] [address] Mar, [facility] [address] [id number] [address] [place] [address], [place] [address] 18 Mar, 2012 [facility] [address] [id number] [address] [place] [address] Mar, [facility] [address] [id number] [address] [place] [address] Mar, [facility] [address] [id number] [address] [place] [id number] Mar, [facility] [address] [id number] [address] [place] [id number] Mar, [facility] [address] [id number] [address] [place] [address], [place] [address] Mar, [facility] [address] [id number] [address] [place] [address], [place] [address] Jan, [facility] [address] [id number] [address] [place] [address] Jan, [facility] [address] [id number] [place] [id number] Jan, [facility] [address] [id number] [facility] [id number] Jan, [facility] [address] [id number] [address] [place] [address], [place] [address] Jan, [facility] [address] [id number] [address] [place] [address], [place] [address] Jan, [facility] [address] [id number] [address] [place] [address], [place] [address] Jan, [facility] [address] [id number] [address] [place] [address], [place] [address] Jan, [facility] [address] [id number] [address] [place] [address], [place] [address] Jan, [facility] [address] [id number] [address] [place] [address], [place] [address] Jan, [facility] [address] [id number] [address] [place] [address], [place] [address] Jan, [facility] [address] [id number] [address] [place] [address], [place] [address] Dec, [facility] [address] [id number] [address] [place] [address], [place] [address] Dec, [facility] [address] [id number] [address] [place] [address], [place] [address] Dec, [facility] [address] [id number] [address] [place] [address], [place] [address] Dec, [facility] [address] [id number] [address] [place] [address], [place] [address] Dec, [facility] [address] [id number] [address] [place] [address], [place] [address] Dec, [facility] [address] [id number] [address] [place] [address] [place] [address] 18 Jan, 2012 [facility] [address] [id number] [address] [place] [address], [place] [address] 17 Jan, 2012 [facility] [address] [id number] [address] [place] [address], [place] [address] 16 Jan, 2012 [facility] [address] [id number] [address] [place] [address], [place] [address] 13 Jan, 2012 [facility] [address] [id number] [address] [place] [address], [place] [address] 13 Jan, 2012 [facility] [address] [id number] [address] [place] [address], [place] [address] 02 Jan, 2012 [facility] [address] [id number] [address] [place] [address], [place] [address] Dec, [facility] [address] [id number] [address] [place] [address], [place] [address] Dec, [facility] [address] [id number] [address] [place] [address], [place] [address] Dec, [facility] [address] [id number] [address] [place] [address], [place] [address] Dec, [facility] [address] [id number] [address] [place] [address], [place] [address] 15 Dec, 2011 [facility] [address] [id number] [address] [place] [address], [place] [address] Dec, [facility] [address] [id number] [address] [place] [address], [place] [address] Dec, [facility] [address] [id number] [address] [place] [address], [place] [address] October, [facility] [address] [id number] [address] [place] [address], [place] [address] October, [facility] [address] [id number] [address] [place] [address], [place] [address] October, [facility] [address] [id number] [address] [place] [address], [place] [address] October, [facility] [address] [id number] [address] [place] [address], [place] [address] October, [facility] [address] [id number] [address] [place] [address], [place] [address] October, [facility] [address] [id number] [address] [place] [address], [place] [address] Oct, [facility] [address] [id number] [address] [place] [address], [place] [address] 24 Oct, 2011 [facility] [address] [id number] [address] [place] [address], [place] [address] Oct, [facility] [address] [id number] [address] [place] [address], [place] [address] Oct, [facility] [address] [id number] [address] [place] [address], [place] [address] Oct, [facility] [address] [id number] [address] [place] [address], [place] [address] Oct, [facility] [address] [id number] [address] [place] [address], [place] [address] Oct, [facility] [address] [id number] [address] [place] [address], [place] [address] Aug, [facility] [address] [id number] [address] [place] [address], [place] [address] 29 Sep, 2011 [facility] [address] [id number] [address] [place] [address], [place] [address] 19 Sep, 2011 [facility] [address] [id number] [address] [place] [address], [place] [address] 13 Sep, 2011 [facility] [address] [id number] [address] [place] [address], [place] [address] 05 Sep, 2011 [facility] [address] [id number] [address] [place] [address], [place] [address] Aug, [facility] [address] [id number] [address] [place] [address], [place] [address] Aug, [facility] [address] [id number] [address] [place] [address], [place] [address] Aug, [facility] [address] [id number] [address] [place] [address], [place] [address] Aug, [facility] [address] [id number] [address] [place] [address], [place] [address] Jul, [facility] [address] [id number] [address] [place] [address], [place] [address] Jul, [facility] [address] [id number] [address] [place] [address], [place] [address] Jul, [facility] [address] [id number] [address] [place] [address], [place] [address] Jul, [facility] [address] [id number] [address] [place] [address], [place] [address] Jun, [facility] [address] [id number] [address] [place] [address], [place] [address] Jun, [facility] [address] [id number] [address] [place] [address], [place] [address] May, [facility] [address] [id number] [address] [place] [address], [place] [address] May, [facility] [address] [id number] [address] [place] [address], [place] [address] May, [facility] [address] [id number] [address] [place] [address], [place] [address] May, [facility] [address] [id number] [address] [place] [address], [place] [address] 07 May, 2011 [facility] [address] [id number] [address] [place] [address], [place] [address] Apr, [facility] [address] [id number] [address] [place] [address] Apr, [facility] [address] [id number] [address] [place] [address] Apr, [facility] [address] [id number] [address] [place] [address] Jan, [facility] [address] [id number] [address] [place] [address] Dec, [facility] [address] [id number] [address] [place] [address] October, [facility] [address] [id number] [address] [place] [address] Jun, [facility] [address] [id number] [address] [place] [address] Apr, [facility] [address] [id number] [address] [place] [address] Apr, [facility] [address] [id number] [address] [place] [address] Apr, [facility] [address] [id number] [address] [place] [phone] Jun, IMMUNIZATIONS No Known Immunizations SOCIAL HISTORY Never Assessed REASON FOR VISIT [facility] [place] VITAL SIGNS MEDICATIONS Unknown Medications RESULTS No Results PROCEDURES No Known procedures INSTRUCTIONS MEDICATIONS ADMINISTERED No Known Medications MEDICAL (GENERAL) HISTORY Type Description Date Medical History Psychiatric disorder Medical History Hard of hearing Surgical History Neofibrous tumor Surgical History back injection Hospitalization History Intestinal blockage Hospitalization History past psychiatric hospitalizations x2
--- OUTSIDE RECORDS SUMMARY | 2020-01-25 13:01 | XMS REPORT ---
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 Name Role Phone Migration, Doctor Unavailable Unavailable PROBLEMS Type Condition ICD9-CM Code [id number] Code Onset Dates Condition S tatus SNOMED Code Problem Attention deficit R41.840 Active 76 790813 Problem Chronic hepatitis C without hepatic coma B18.2 Active 497534038 Problem Cannabis abuse F12.10 Active 52875 009 Problem Bipolar disorder, in partial remission, most rec ent episode hypomanic F31.71 Active 574439249 Problem Attention deficit hyperactivity disorder (ADHD), combi luciano type F90.2 Active 77271492 Problem Bipolar 1 disorder F31.9 Active 3 78721243 Problem H/O laminectomy Z98.89 Active 1616 13918 Problem Other chronic pain G89.29 Active 8 0951840 Problem Anxiety disorder, unspecified type F41.9 Active [id number] ALLERGIES No Information ENCOUNTERS Encounter Location Date Diagnosis [facility] [address] [facility] [id number] [address] [place] [address] Oct, [facility] [address] [facility] [id number] [address] [place] [address] Aug, Bipolar disorder, in partial remission, most recent episode hypomanic F31.71 ; Attention deficit hyperactivity disorder (ADHD), combined type F90.2 and Anxiety disorder, unspecified type F41.9 [facility] [address] [facility] [id number] [address] [place] [address] Aug, [facility] [address] [facility] [id number] [address] [place] [address] Aug, Bipolar disorder, in partial remission, most recent episode hypomanic F31.71 [facility] [address] [facility] [id number] [address] [place] [address] Aug, [facility] [address] [id number] [address] [place] [address] Aug, Bipolar disorder, in partial remission, most recent episode hypomanic F31.71 [facility] [address] [id number] [address] [place] [address] Aug, Bipolar disorder, in partial remission, most recent episode hypomanic F31.71 ; Attention deficit hyperactivity disorder (ADHD), combined type F90.2 and Anxiety disorder, unspecified type F41.9 [facility] [address] [id number] [address] [place] [address] Aug, Low back pain M54.5 and Pain in left wrist M25.532 [facility] [address] [id number] [address] [place] [address] Aug, [facility] [address] [id number] [address] [place] [address] Jun, [facility] [address] [facility] [id number] [address] [place] [address] Apr, Bipolar disorder, in partial remission, most recent episode hypomanic F31.71 [facility] [address] [id number] [address] [place] [address] Apr, [facility] [address] [id number] [address] [place] [address] Apr, Bipolar disorder, in partial remission, most recent episode hypomanic F31.71 ; Attention deficit hyperactivity disorder (ADHD), combined type F90.2 ; Anxiety disorder, unspecified type F41.9 and Other alf (current) 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 Z79.899 [facility] [address] [id number] [address] [place] [address] Apr, Bipolar disorder, in partial remission, most recent episode hypomanic F31.71 [facility] [address] [id number] [address] [place] [address] Apr, Bipolar disorder, in partial remission, most recent episode hypomanic F31.71 [facility] [address] [facility] [id number] [address] [place] [address] Mar, [facility] [address] [id number] [address] [place] [address] Mar, Bipolar disorder, in partial remission, most recent episode hypomanic F31.71 ; Encounter for immunization Z23 and Low back pain M54.5 [facility] [address] [id number] [address] [place] [address] Mar, Bipolar disorder, in partial remission, most recent episode hypomanic F31.71 [facility] [address] [id number] [address] [place] [address] Mar, Bipolar disorder, in partial remission, most recent episode hypomanic F31.71 [facility] [address] [facility] [id number] [address] [place] [address] Jan, Bipolar disorder, in partial remission, most recent episode hypomanic F31.71 [facility] [address] [facility] [id number] [address] [place] [address] Jan, Bipolar disorder, in partial remission, most recent episode hypomanic F31.71 [facility] [address] [facility] [id number] [address] [place] [address] Dec, Bipolar disorder, in partial remission, most recent episode hypomanic F31.71 [facility] [address] [facility] [id number] [address] [place] [address] Dec, Bipolar disorder, in partial remission, most recent episode hypomanic F31.71 ; Attention deficit hyperactivity disorder (ADHD), combined type F90.2 ; Anxiety disorder, unspecified type F41.9 and Other alf (current) 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 Z79.899 [facility] [address] [facility] [id number] [address] [place] [address] Dec, Bipolar disorder, in partial remission, most recent episode hypomanic F31.71 [facility] [address] [facility] [id number] [address] [place] [address] Dec, Bipolar disorder, in partial remission, most recent episode hypomanic F31.71 [facility] [address] [id number] [address] [place] [address] October, Bipolar disorder, in partial remission, most recent episode hypomanic F31.71 [facility] [address] [id number] [address] [place] [address] October, [facility] [address] [id number] [address] [place] [address] October, [facility] [address] [id number] [address] [place] [address] Oct, Bipolar disorder, in partial remission, most recent episode hypomanic F31.71 ; Attention deficit hyperactivity disorder (ADHD), combined type F90.2 ; Anxiety disorder, unspecified type F41.9 and Encounter for drug screening Z02.83 [facility] [address] [id number] [address] [place] [address] Oct, Bipolar disorder, in partial remission, most recent episode hypomanic F31.71 [facility] [address] [id number] [address] [place] [address] Oct, Bipolar disorder, in partial remission, most recent episode hypomanic F31.71 [facility] [address] [id number] [address] [place] [address] Aug, Bipolar disorder, in partial remission, most recent episode hypomanic F31.71 [facility] [address] [id number] [address] [place] [address] Aug, Bipolar disorder, in partial remission, most recent episode hypomanic F31.71 [facility] [address] [id number] [address] [place] [address] Aug, Bipolar disorder, in partial remission, most recent episode hypomanic F31.71 [facility] [address] [id number] [address] [place] [address] Jul, Bipolar disorder, in partial remission, most recent episode hypomanic F31.71 ; Attention deficit hyperactivity disorder (ADHD), combined type F90.2 and Anxiety disorder, unspecified type F41.9 [facility] [address] [id number] [address] [place] [address] Jul, Bipolar disorder, in partial remission, most recent episode hypomanic F31.71 [facility] [address] [id number] [address] [place] [address] Jun, Bipolar disorder, in partial remission, most recent episode hypomanic F31.71 [facility] [address] [id number] [address] [place] [address] May, Bipolar disorder, in partial remission, most recent episode hypomanic F31.71 [facility] [address] [facility] [id number] [address] [place] [address] May, Bipolar disorder, in partial remission, most recent episode hypomanic F31.71 [facility] [address] [facility] [id number] [address] [place] [address] Apr, [facility] [address] [id number] [address] [place] [address] Apr, Bipolar disorder, in partial remission, most recent episode hypomanic F31.71 ; Attention deficit hyperactivity disorder (ADHD), combined type F90.2 ; Anxiety disorder, unspecified type F41.9 and Cannabis abuse F12.10 [facility] [address] [id number] [address] [place] [address] Apr, Attention deficit hyperactiv ity disorder (ADHD), combined type F90.2 [facility] [address] [id number] [address] [place] [address] Mar, Attention deficit hyperactiv ity disorder (ADHD), combined type F90.2 [facility] [address] [facility] [id number] [address] [place] [address] Mar, Anxiety disorder, unspecifie d type F41.9 [facility] [address] [facility] [id number] [address] [place] [address] Jan, Attention deficit hyperactiv ity disorder (ADHD), combined type F90.2 [facility] [address] [facility] [id number] [address] [place] [address] Jan, Anxiety disorder, unspecifie d type F41.9 [facility] [address] [facility] [id number] [address] [place] [address] Jan, Other chronic pain G89.29 ; Chronic hepatitis C without hepatic coma B18.2 and Bipolar 1 disorder F31.9 [facility] [address] [facility] [id number] [address] [place] [address] Dec, Attention deficit hyperactiv ity disorder (ADHD), combined type F90.2 [facility] [address] [facility] [id number] [address] [place] [address] Dec, Bipolar disorder, in partial remission, most recent episode hypomanic F31.71 ; Attention deficit hyperactivity disorder (ADHD), combined type F90.2 and Anxiety disorder, unspecified type F41.9 [facility] [address] [facility] [id number] [address] [place] [address] Dec, Bipolar disorder, in partial remission, most recent episode hypomanic F31.71 ; Attention deficit hyperactivity disorder (ADHD), combined type F90.2 and Anxiety disorder, unspecified type F41.9 [facility] [address] [facility] [id number] [address] [place] [address] Dec, Bipolar 1 disorder F31.9 and Attention deficit R41.840 [facility] [address] [facility] [id number] [address] [place] [address] Oct, Other chronic pain G89.29 ; Alopecia L65.9 and Screening, lipid Z13.220 [facility] [address] [facility] [id number] [address] [place] [address] Oct, [place] [address] [facility] [id number] [address] [place] [address] Aug, [facility] [address] [facility] [id number] [address] [place] [address] Aug, Eustachian tube dysfunction, right H69.81 ; Vertigo R42 and Other chronic pain G89.29 [facility] [address] [id number] [address] [place] [address] Aug, [facility] [address] [id number] [address] [place] [address] Jun, [facility] [address] [id number] [address] [place] [address] Jun, Low back pain M54.5 and Othe r chronic pain G89.29 [facility] [address] [id number] [address] [place] [address] Jun, [facility] [address] [id number] [address] [place] [address] May, [facility] [address] [id number] [address] [place] [address] Jan, [facility] [address] [id number] [address] [place] [address] Dec, [facility] [address] [id number] [address] [place] [address] Dec, [facility] [address] [id number] [address] [place] [address] Jun, [facility] [address] [id number] [address] [place] [address] Apr, Eustachian tube dysfunction, unspecified laterality H69.80 ; Hot flashes N95.1 and Encounter for immunization Z23 [facility] [address] [id number] [address] [place] [address] Jan, [facility] [address] [id number] [address] [place] [address] Jan, [facility] [address] [id number] [address] [place] [address] Jan, [facility] [address] [id number] [address] [place] [address] Jan, [facility] [address] [id number] [address] [place] [address] Jan, Encounter to establish care V65.8 ; Bipolar 1 disorder 296.7 ; Abdominal pain 789.00 ; Constipation 564.00 ; Hard of hearing 389.9 and Drug abuse 305.90 [facility] [address] [id number] [address] [place] [address] Dec, [facility] [address] [id number] [address] [place] [address] October, [facility] [address] [id number] [address] [place] [address] October, [facility] [address] [id number] [address] [place] [address] Oct, [facility] [address] [id number] [address] [place] [address] Oct, [facility] [address] [id number] [address] [place] [address] Oct, [facility] [address] [id number] [address] [place] [address] Aug, [facility] [address] [id number] [address] [place] [address] Aug, [facility] [address] [id number] [address] [place] [address] Aug, [facility] [address] [id number] [address] [place] [address] Aug, [facility] [address] [id number] [address] [place] [address] Aug, [facility] [address] [id number] [address] [place] [address] Aug, [facility] [address] [id number] [address] [place] [address], [place] [address] Aug, 2014 [facility] [address] [id number] [address] [place] [address], [place] [address] Aug, 2014 [facility] [address] [id number] [address] [place] [address], [place] [address] Aug, 2014 [facility] [address] [id number] [address] [place] [address], [place] [address] Aug, 2014 [facility] [address] [id number] [address] [place] [address], [place] [address] Aug, 2014 [facility] [address] [id number] [address] [place] [address], [place] [address] Aug, 2014 [facility] [address] [id number] [address] [place] [address], [place] [address] Aug, 2014 [facility] [address] [id number] [address] [place] [address], [place] [address] Aug, 2014 [facility] [address] [id number] [address] [place] [address], [place] [address] Aug, [facility] [address] [id number] [address] [place] [address], [place] [address] Jul, [facility] [address] [id number] [address] [place] [address], [place] [address] Jul, [facility] [address] [id number] [address] [place] [address], [place] [address] Jul, [facility] [address] [id number] [address] [place] [address], [place] [address] Jul, [facility] [address] [id number] [address] [place] [address], [place] [address] Jul, [facility] [address] [id number] [address] [place] [address], [place] [address] Jul, [facility] [address] [id number] [address] [place] [address], [place] [address] Jul, [facility] [address] [id number] [address] [place] [address], [place] [address] Jul, [facility] [address] [id number] [address] [place] [address], [place] [address] Jun, [facility] [address] [id number] [address] [place] [address], [place] [address] Jun, [facility] [address] [id number] [address] [place] [address], [place] [address] Jun, [facility] [address] [id number] [address] [place] [address], [place] [address] Jun, [facility] [address] [id number] [address] [place] [address], [place] [address] Jun, [facility] [address] [id number] [address] [place] [address], [place] [address] Jun, [facility] [address] [id number] [address] [place] [address], [place] [address] Jun, [facility] [address] [id number] [address] [place] [address], [place] [address] Jun, [facility] [address] [id number] [address] [place] [address], [place] [address] Jun, [facility] [address] [id number] [address] [place] [address], [place] [address] Jun, [facility] [address] [id number] [address] [place] [address], [place] [address] Jun, [facility] [address] [id number] [address] [place] [address], [place] [address] May, [facility] [address] [id number] [address] [place] [address], [place] [address] May, [facility] [address] [id number] [address] [place] [address], [place] [address] May, [facility] [address] [id number] [address] [place] [address], [place] [address] May, [facility] [address] [id number] [address] [place] [address], [place] [address] May, [facility] [address] [id number] [address] [place] [address], [place] [address] May, [facility] [address] [id number] [address] [place] [address], [place] [address] May, [facility] [address] [id number] [address] [place] [address], [place] [address] Apr, [facility] [address] [id number] [address] [place] [address], [place] [address] Apr, [facility] [address] [id number] [address] [place] [address], [place] [address] Apr, [facility] [address] [id number] [address] [place] [address], [place] [address] Apr, [facility] [address] [id number] [address] [place] [address], [place] [address] Apr, [facility] [address] [id number] [address] [place] [address], [place] [address] Apr, [facility] [address] [id number] [address] [place] [address], [place] [address] Mar, [facility] [address] [id number] [address] [place] [address], [place] [address] 29 Mar, 2013 [facility] [address] [id number] [address] [place] [address], [place] [address] 10 Mar, 2013 [facility] [address] [id number] [address] [place] [address], [place] [address] 10 Mar, 2013 [facility] [address] [id number] [address] [place] [address], [place] [address] Mar, 2013 [facility] [address] [id number] [address] [place] [address], [place] [address] Mar, [facility] [address] [id number] [address] [place] [address], [place] [address] Jan, [facility] [address] [id number] [address] [place] [address], [place] [address] Jan, [facility] [address] [id number] [address] [place] [address], [place] [address] Jan, [facility] [address] [id number] [address] [place] [address], [place] [address] Jan, [facility] [address] [id number] [address] [place] [address], [place] [address] Dec, [facility] [address] [id number] [address] [place] [address], [place] [address] Dec, [facility] [address] [id number] [address] [place] [address], [place] [address] Dec, [facility] [address] [id number] [address] [place] [address], [place] [address] Dec, [facility] [address] [id number] [address] [place] [address], [place] [address] Dec, [facility] [address] [id number] [address] [place] [address], [place] [address] Dec, [facility] [address] [id number] [address] [place] [address], [place] [address] Dec, [facility] [address] [id number] [address] [place] [address], [place] [address] Dec, [facility] [address] [id number] [address] [place] [address], [place] [address] Dec, [facility] [address] [id number] [address] [place] [address], [place] [address] Dec, [facility] [address] [id number] [address] [place] [address], [place] [address] Dec, [facility] [address] [id number] [address] [place] [address], [place] [address] Dec, [facility] [address] [id number] [address] [place] [address], [place] [address] October, [facility] [address] [id number] [address] [place] [address], [place] [address] October, [facility] [address] [id number] [address] [place] [address], [place] [address] October, [facility] [address] [id number] [address] [place] [address], [place] [address] October, [facility] [address] [id number] [address] [place] [address], [place] [address] October, [facility] [address] [id number] [address] [place] [address], [place] [address] October, [facility] [address] [id number] [address] [place] [address], [place] [address] Oct, [facility] [address] [id number] [address] [place] [address], [place] [address] Oct, [facility] [address] [id number] [address] [place] [address], [place] [address] Oct, [facility] [address] [id number] [address] [place] [address], [place] [address] Oct, [facility] [address] [id number] [address] [place] [address], [place] [address] Oct, [facility] [address] [id number] [address] [place] [address], [place] [address] Oct, [facility] [address] [id number] [address] [place] [address], [place] [address] Oct, [facility] [address] [id number] [address] [place] [address], [place] [address] Oct, [facility] [address] [id number] [address] [place] [address], [place] [address] Oct, [facility] [address] [id number] [facility] [place] [address] 09 Oct, 2013 [facility] [address] [id number] [facility] [place] [address] Oct, [facility] [address] [id number] [address] [place] [address], [place] [address] Oct, [facility] [address] [id number] [address] [place] [address], [place] [address] Aug, [facility] [address] [id number] [address] [place] [address], [place] [address] Aug, [facility] [address] [id number] [address] [place] [address], [place] [address] Aug, [facility] [address] [id number] [address] [place] [address], [place] [address] Aug, [facility] [address] [id number] [address] [place] [address], [place] [address] Aug, [facility] [address] [id number] [address] [place] [address], [place] [address] 05 Aug, 2013 [facility] [address] [id number] [address] [place] [address], [place] [address] Aug, [facility] [address] [id number] [address] [place] [address], [place] [address] Aug, [facility] [address] [id number] [address] [place] [address], [place] [address] Aug, [facility] [address] [id number] [address] [place] [address], [place] [address] Aug, [facility] [address] [id number] [address] [place] [address], [place] [address] Aug, [facility] [address] [id number] [address] [place] [address], [place] [address] Aug, [facility] [address] [id number] [address] [place] [address], [place] [address] Aug, [facility] [address] [id number] [address] [place] [address], [place] [address] 20 Aug, 2013 [facility] [address] [id number] [address] [place] [address], [place] [address] 14 Aug, 2013 [facility] [address] [id number] [address] [place] [address], [place] [address] 14 Aug, 2013 [facility] [address] [id number] [address] [place] [address], [place] [address] 14 Aug, 2013 [facility] [address] [id number] [address] [place] [address], [place] [address] 14 Aug, 2013 [facility] [address] [id number] [address] [place] [address], [place] [address] 07 Aug, 2013 [facility] [address] [id number] [address] [place] [address], [place] [address] 07 Aug, 2013 [facility] [address] [id number] [address] [place] [address], [place] [address] 06 Aug, 2013 [facility] [address] [id number] [address] [place] [address], [place] [address] 06 Aug, 2013 [facility] [address] [id number] [address] [place] [address], [place] [address] 04 Aug, 2013 [facility] [address] [id number] [address] [place] [address], [place] [address] 04 Aug, 2013 [facility] [address] [id number] [address] [place] [address], [place] [address] Aug, [facility] [address] [id number] [address] [place] [address], [place] [address] Jul, [facility] [address] [id number] [address] [place] [address], [place] [address] Jul, [facility] [address] [id number] [address] [place] [address], [place] [address] Jul, [facility] [address] [id number] [address] [place] [address], [place] [address] Jul, [facility] [address] [id number] [address] [place] [address], [place] [address] Jul, [facility] [address] [id number] [address] [place] [address], [place] [address] Jul, [facility] [address] [id number] [address] [place] [address], [place] [address] Jul, [facility] [address] [id number] [address] [place] [address], [place] [address] Jul, [facility] [address] [id number] [address] [place] [address], [place] [address] Jul, [facility] [address] [id number] [address] [place] [address], [place] [address] Jul, [facility] [address] [id number] [address] [place] [address], [place] [address] Jul, [facility] [address] [id number] [address] [place] [address], [place] [address] Jul, [facility] [address] [id number] [address] [place] [address], [place] [address] Jul, [facility] [address] [id number] [address] [place] [address], [place] [address] Jul, [facility] [address] [id number] [address] [place] [address], [place] [address] Jul, [facility] [address] [id number] [address] [place] [address], [place] [address] Jul, [facility] [address] [id number] [address] [place] [address], [place] [address] Jul, [facility] [address] [id number] [address] [place] [address], [place] [address] Jul, [facility] [address] [id number] [address] [place] [address], [place] [address] Jul, [facility] [address] [id number] [address] [place] [address], [place] [address] Jul, [facility] [address] [id number] [address] [place] [address], [place] [address] Jun, [facility] [address] [id number] [address] [place] [address], [place] [address] Jun, [facility] [address] [id number] [address] [place] [address], [place] [address] Jun, [facility] [address] [id number] [address] [place] [address], [place] [address] Jun, [facility] [address] [id number] [address] [place] [address], [place] [address] Jun, [facility] [address] [id number] [address] [place] [address], [place] [address] Jun, [facility] [address] [id number] [address] [place] [address], [place] [address] Jun, [facility] [address] [id number] [address] [place] [address], [place] [address] Jun, [facility] [address] [id number] [address] [place] [address], [place] [address] Jun, [facility] [address] [id number] [address] [place] [address], [place] [address] Jun, [facility] [address] [id number] [address] [place] [address], [place] [address] Jun, [facility] [address] [id number] [address] [place] [address], [place] [address] Jun, [facility] [address] [id number] [address] [place] [address], [place] [address] Jun, [facility] [address] [id number] [address] [place] [address], [place] [address] Jun, [facility] [address] [id number] [address] [place] [address], [place] [address] 20 Jun, 2013 [facility] [address] [id number] [address] [place] [address], [place] [address] 18 Jun, 2013 [facility] [address] [id number] [address] [place] [address], [place] [address] 18 Jun, 2013 [facility] [address] [id number] [address] [place] [address], [place] [address] 17 Jun, 2013 [facility] [address] [id number] [address] [place] [address], [place] [address] 17 Jun, 2013 [facility] [address] [id number] [address] [place] [address], [place] [address] 13 Jun, 2013 [facility] [address] [id number] [address] [place] [address], [place] [address] 12 Jun, 2013 [facility] [address] [id number] [address] [place] [address], [place] [address] 12 Jun, 2013 [facility] [address] [id number] [address] [place] [address], [place] [address] 09 Jun, 2013 [facility] [address] [id number] [address] [place] [address], [place] [address] 05 Jun, 2013 [facility] [address] [id number] [address] [place] [address], [place] [address] 05 Jun, 2013 [facility] [address] [id number] [address] [place] [address], [place] [address] 04 Jun, 2013 [facility] [address] [id number] [address] [place] [address], [place] [address] 04 Jun, 2013 [facility] [address] [id number] [address] [place] [address], [place] [address] 17 May, 2013 [facility] [address] [id number] [address] [place] [address], [place] [address] 17 May, 2013 [facility] [address] [id number] [address] [place] [address], [place] [address] May, [facility] [address] [id number] [address] [place] [address], [place] [address] May, [facility] [address] [id number] [address] [place] [address], [place] [address] May, [facility] [address] [id number] [address] [place] [address], [place] [address] May, [facility] [address] [id number] [address] [place] [address], [place] [address] Apr, [facility] [address] [id number] [address] [place] [address], [place] [address] Apr, [facility] [address] [id number] [address] [place] [address], [place] [address] Apr, [facility] [address] [id number] [address] [place] [address], [place] [address] Apr, [facility] [address] [id number] [address] [place] [address], [place] [address] Apr, [facility] [address] [id number] [address] [place] [address], [place] [address] Apr, [facility] [address] [id number] [address] [place] [address], [place] [address] Apr, [facility] [address] [id number] [address] [place] [address], [place] [address] Apr, [facility] [address] [id number] [address] [place] [address], [place] [address] 26 Mar, 2013 [facility] [address] [id number] [address] [place] [address], [place] [address] 24 Sep2012 [facility] [address] [id number] [address] [place] [address], [place] [address] 17 Mar, 2013 [facility] [address] [id number] [address] [place] [address], [place] [address] 17 Mar, 2013 [facility] [address] [id number] [address] [place] [address] [place] [address] 11 Mar, 2013 [facility] [address] [id number] [address] [place] [address], [place] [address] 10 Mar, 2013 [facility] [address] [id number] [address] [place] [address], [place] [address] 05 Mar, 2013 [facility] [address] [id number] [address] [place] [address], [place] [address] 04 Mar, 2013 [facility] [address] [id number] [address] [place] [address], [place] [address] 20 Jan, 2013 [facility] [address] [id number] [address] [place] [address], [place] [address] Jan, [facility] [address] [id number] [address] [place] [address], [place] [address] 14 Jan, 2013 [facility] [address] [id number] [address] [place] [address], [place] [address] Jan, [facility] [address] [id number] [address] [place] [address], [place] [address] Jan, [facility] [address] [id number] [address] [place] [address], [place] [address] Jan, [facility] [address] [id number] [address] [place] [address], [place] [address] Dec, [facility] [address] [id number] [address] [place] [address], [place] [address] Dec, [facility] [address] [id number] [address] [place] [address], [place] [address] Dec, [facility] [address] [id number] [address] [place] [address], [place] [address] Dec, [facility] [address] [id number] [address] [place] [address], [place] [address] Dec, [facility] [address] [id number] [address] [place] [address], [place] [address] 17 Dec, 2012 [facility] [address] [id number] [address] [place] [address], [place] [address] 16 Dec, 2012 [facility] [address] [id number] [address] [place] [address], [place] [address] 16 Dec, 2012 [facility] [address] [id number] [address] [place] [address], [place] [address] 15 Dec, 2012 [facility] [address] [id number] [address] [place] [address], [place] [address] 10 Dec, 2012 [facility] [address] [id number] [address] [place] [address], [place] [address] 28 Dec, 2012 [facility] [address] [id number] [address] [place] [address], [place] [address] Dec, [facility] [address] [id number] [address] [place] [address], [place] [address] Dec, [facility] [address] [id number] [address] [place] [address], [place] [address] Dec, [facility] [address] [id number] [address] [place] [address], [place] [address] Dec, [facility] [address] [id number] [address] [place] [address], [place] [address] Dec, [facility] [address] [id number] [address] [place] [address], [place] [address] October, [facility] [address] [id number] [address] [place] [address], [place] [address] October, [facility] [address] [id number] [address] [place] [address], [place] [address] October, [facility] [address] [id number] [address] [place] [address], [place] [address] October, [facility] [address] [id number] [address] [place] [address], [place] [address] October, [facility] [address] [id number] [address] [place] [address], [place] [address] October, [facility] [address] [id number] [address] [place] [address], [place] [address] October, [facility] [address] [id number] [address] [place] [address], [place] [address] Oct, [facility] [address] [id number] [address] [place] [address], [place] [address] Oct, [facility] [address] [id number] [address] [place] [address], [place] [address] Oct, [facility] [address] [id number] [address] [place] [address], [place] [address] Oct, [facility] [address] [id number] [address] [place] [address], [place] [address] Oct, [facility] [address] [id number] [address] [place] [address], [place] [address] Oct, [facility] [address] [id number] [address] [place] [address], [place] [address] Oct, [facility] [address] [id number] [address] [place] [address], [place] [address] 15 Oct, 2012 [facility] [address] [id number] [address] [place] [address], [place] [address] Oct, [facility] [address] [id number] [address] [place] [address], [place] [address] Oct, [facility] [address] [id number] [address] [place] [address], [place] [address] Oct, [facility] [address] [id number] [address] [place] [address], [place] [address] Oct, [facility] [address] [id number] [address] [place] [address], [place] [address] Aug, [facility] [address] [id number] [address] [place] [address], [place] [address] Aug, [facility] [address] [id number] [address] [place] [address], [place] [address] 12 Aug, 2012 [facility] [address] [id number] [address] [place] [address], [place] [address] 06 Aug, 2012 [facility] [address] [id number] [address] [place] [address], [place] [address] 05 Aug, 2012 [facility] [address] [id number] [address] [place] [address], [place] [address] 05 Aug, 2012 [facility] [address] [id number] [address] [place] [address], [place] [address] 20 Aug, 2012 [facility] [address] [id number] [address] [place] [address], [place] [address] 14 Aug, 2012 [facility] [address] [id number] [address] [place] [address], [place] [address] 12 Aug, 2012 [facility] [address] [id number] [address] [place] [address], [place] [address] Aug, [facility] [address] [id number] [address] [place] [address], [place] [address] Jul, [facility] [address] [id number] [address] [place] [address], [place] [address] Jul, [facility] [address] [id number] [address] [place] [address], [place] [address] Jul, [facility] [address] [id number] [address] [place] [address], [place] [address] Jun, [facility] [address] [id number] [address] [place] [address], [place] [address] Jun, [facility] [address] [id number] [address] [place] [address], [place] [address] Jun, [facility] [address] [id number] [address] [place] [address], [place] [address] Jun, [facility] [address] [id number] [address] [place] [address], [place] [address] Jun, [facility] [address] [id number] [address] [place] [address], [place] [address] 14 Jun, 2012 [facility] [address] [id number] [address] [place] [address], [place] [address] 14 Jun, 2012 [facility] [address] [id number] [address] [place] [address], [place] [address] 13 Jun, 2012 [facility] [address] [id number] [address] [place] [address], [place] [address] 13 Jun, 2012 [facility] [address] [id number] [address] [place] [address], [place] [address] 11 Jun, 2012 [facility] [address] [id number] [address] [place] [address], [place] [address] 11 Jun, 2012 [facility] [address] [id number] [address] [place] [address], [place] [address] 11 Jun, 2012 [facility] [address] [id number] [address] [place] [address], [place] [address] 11 Jun, 2012 [facility] [address] [id number] [address] [place] [address], [place] [address] 07 Jun, 2012 [facility] [address] [id number] [address] [place] [address], [place] [address] 07 Jun, 2012 [facility] [address] [id number] [address] [place] [address], [place] [address] 06 Jun, 2012 [facility] [address] [id number] [address] [place] [address], [place] [address] 06 Jun, 2012 [facility] [address] [id number] [address] [place] [address], [place] [address] Jun, [facility] [address] [id number] [address] [place] [address], [place] [address] 06 Jun, 2012 [facility] [address] [id number] [address] [place] [address], [place] [address] 05 Jun, 2012 [facility] [address] [id number] [address] [place] [address], [place] [address] Jun, [facility] [address] [id number] [address] [place] [address], [place] [address] Jun, [facility] [address] [id number] [address] [place] [address], [place] [address] Jun, [facility] [address] [id number] [address] [place] [address], [place] [address] May, [facility] [address] [id number] [address] [place] [address], [place] [address] May, [facility] [address] [id number] [address] [place] [address], [place] [address] May, [facility] [address] [id number] [address] [place] [address], [place] [address] May, [facility] [address] [id number] [address] [place] [address], [place] [address] May, [facility] [address] [id number] [address] [place] [address], [place] [address] May, [facility] [address] [id number] [address] [place] [address], [place] [address] May, [facility] [address] [id number] [address] [place] [address], [place] [address] May, [facility] [address] [id number] [address] [place] [address], [place] [address] Apr, [facility] [address] [id number] [address] [place] [address] Apr, [facility] [address] [id number] [address] [place] [address], [place] [address] Apr, [facility] [address] [id number] [address] [place] [address], [place] [address] Apr, [facility] [address] [id number] [address] [place] [address] Apr, [facility] [address] [id number] [address] [place] [address], [place] [address] Apr, [facility] [address] [id number] [address] [place] [address], [place] [address] Apr, [facility] [address] [id number] [address] [place] [address], [place] [address] Apr, [facility] [address] [id number] [address] [place] [address], [place] [address] Apr, [facility] [address] [id number] [address] [place] [address], [place] [address] Apr, [facility] [address] [id number] [address] [place] [address], [place] [address] Apr, [facility] [address] [id number] [address] [place] [address], [place] [address] Apr, [facility] [address] [id number] [address] [place] [address], [place] [address] Mar, [facility] [address] [id number] [address] [place] [address], [place] [address] 18 Mar, 2012 [facility] [address] [id number] [address] [place] [address] Mar, [facility] [address] [id number] [address] [place] [phone] Mar, [facility] [address] [id number] [address] [place] [id number] Mar, [facility] [address] [id number] [address] [place] [id number] Mar, [facility] [address] [id number] [address] [place] [address], [place] [address] Mar, [facility] [address] [id number] [address] [place] [address], [place] [address] Jan, [facility] [address] [id number] [address] [place] [phone] Jan, [facility] [address] [id number] [facility] [id number] Jan, [facility] [address] [id number] [facility] [id number] Jan, [facility] [address] [id number] [address] [place] [address], [place] [address] Jan, [facility] [address] [id number] [address] [place] [address], [place] [address] Jan, [facility] [address] [id number] [address] [place] [address], [place] [address] Jan, [facility] [address] [id number] [address] [place] [address], [place] [address] Jan, [facility] [address] [id number] [address] [place] [address], [place] [address] Jan, [facility] [address] [id number] [address] [place] [address], [place] [address] Jan, [facility] [address] [id number] [address] [place] [address], [place] [address] Jan, [facility] [address] [id number] [address] [place] [address], [place] [address] Dec, [facility] [address] [id number] [address] [place] [address], [place] [address] Dec, [facility] [address] [id number] [address] [place] [address], [place] [address] Dec, [facility] [address] [id number] [address] [place] [address], [place] [address] Dec, [facility] [address] [id number] [address] [place] [address], [place] [address] Dec, [facility] [address] [id number] [address] [place] [address], [place] [address] Dec, [facility] [address] [id number] [address] [place] [address] [place] [address] 18 Jan, 2012 [facility] [address] [id number] [address] [place] [address], [place] [address] 17 Jan, 2012 [facility] [address] [id number] [address] [place] [address], [place] [address] 16 Jan, 2012 [facility] [address] [id number] [address] [place] [address], [place] [address] 13 Jan, 2012 [facility] [address] [id number] [address] [place] [address], [place] [address] 13 Jan, 2012 [facility] [address] [id number] [address] [place] [address], [place] [address] 02 Jan, 2012 [facility] [address] [id number] [address] [place] [address], [place] [address] Dec, [facility] [address] [id number] [address] [place] [address], [place] [address] Dec, [facility] [address] [id number] [address] [place] [address], [place] [address] Dec, [facility] [address] [id number] [address] [place] [address], [place] [address] Dec, [facility] [address] [id number] [address] [place] [address], [place] [address] 15 Dec, 2011 [facility] [address] [id number] [address] [place] [address], [place] [address] Dec, [facility] [address] [id number] [address] [place] [address], [place] [address] Dec, [facility] [address] [id number] [address] [place] [address], [place] [address] October, [facility] [address] [id number] [address] [place] [address], [place] [address] October, [facility] [address] [id number] [address] [place] [address], [place] [address] October, [facility] [address] [id number] [address] [place] [address], [place] [address] October, [facility] [address] [id number] [address] [place] [address], [place] [address] October, [facility] [address] [id number] [address] [place] [address], [place] [address] October, [facility] [address] [id number] [address] [place] [address], [place] [address] Oct, [facility] [address] [id number] [address] [place] [address], [place] [address] 24 Oct, 2011 [facility] [address] [id number] [address] [place] [address], [place] [address] Oct, [facility] [address] [id number] [address] [place] [address], [place] [address] Oct, [facility] [address] [id number] [address] [place] [address], [place] [address] Oct, [facility] [address] [id number] [address] [place] [address], [place] [address] Oct, [facility] [address] [id number] [address] [place] [address], [place] [address] Oct, [facility] [address] [id number] [address] [place] [address], [place] [address] Aug, [facility] [address] [id number] [address] [place] [address], [place] [address] 29 Sep, 2011 [facility] [address] [id number] [address] [place] [address], [place] [address] 19 Sep, 2011 [facility] [address] [id number] [address] [place] [address], [place] [address] 13 Sep, 2011 [facility] [address] [id number] [address] [place] [address], [place] [address] 05 Sep, 2011 [facility] [address] [id number] [address] [place] [address], [place] [address] Aug, [facility] [address] [id number] [address] [place] [address], [place] [address] Aug, [facility] [address] [id number] [address] [place] [address], [place] [address] Aug, [facility] [address] [id number] [address] [place] [address], [place] [address] Aug, [facility] [address] [id number] [address] [place] [address], [place] [address] Jul, [facility] [address] [id number] [address] [place] [address], [place] [address] Jul, [facility] [address] [id number] [address] [place] [address], [place] [address] Jul, [facility] [address] [id number] [address] [place] [address], [place] [address] Jul, [facility] [address] [id number] [address] [place] [address], [place] [address] Jun, [facility] [address] [id number] [address] [place] [address], [place] [address] Jun, [facility] [address] [id number] [address] [place] [address], [place] [address] May, [facility] [address] [id number] [address] [place] [address], [place] [address] May, [facility] [address] [id number] [address] [place] [address], [place] [address] May, [facility] [address] [id number] [address] [place] [address], [place] [address] May, [facility] [address] [id number] [address] [place] [address], [place] [address] 07 May, 2011 [facility] [address] [id number] [address] [place] [address], [place] [address] Apr, [facility] [address] [id number] [address] [place] [address] Apr, [facility] [address] [id number] [address] [place] [address] Apr, [facility] [address] [id number] [address] [place] [address] Jan, [facility] [address] [id number] [address] [place] [address] Dec, [facility] [address] [id number] [address] [place] [phone] October, [facility] [address] [id number] [address] [place] [address] Jun, [facility] [address] [id number] [address] [place] [address] Apr, [facility] [address] [id number] [address] [place] [address] Apr, [facility] [address] [id number] [address] [place] [address] Apr, [facility] [address] [id number] [address] [place] [address] Jun, IMMUNIZATIONS No Known Immunizations SOCIAL HISTORY Never Assessed REASON FOR VISIT [facility] PLAN OF CARE VITAL SIGNS MEDICATIONS Unknown Medications RESULTS No Results PROCEDURES No Known procedures INSTRUCTIONS MEDICATIONS ADMINISTERED No Known Medications MEDICAL (GENERAL) HISTORY Type Description Date Medical History Psychiatric disorder Medical History Hard of hearing Surgical History Neofibrous tumor Surgical History back injection Hospitalization History Intestinal blockage Hospitalization History past psychiatric hospitalizations x2
--- OUTSIDE RECORDS SUMMARY | 2020-01-25 13:01 | XMS REPORT ---
Author Author Ana Mayer Doctor Organization [facility] Address Unknown Phone Unavailable Care Team Providers Care Baler Operator Name Role Phone Migration, Doctor Unavailable Unavailable PROBLEMS Type Condition ICD9-CM Code [id number] Code Onset Dates Condition S tatus SNOMED Code Problem Attention deficit R41.840 Active 76 260338 Problem Chronic hepatitis C without hepatic coma B18.2 Active 603195683 Problem Cannabis abuse F12.10 Active 67520 009 Problem Bipolar disorder, in partial remission, most rec ent episode hypomanic F31.71 Active 453484121 Problem Attention deficit hyperactivity disorder (ADHD), combi luciano type F90.2 Active 82204789 Problem Bipolar 1 disorder F31.9 Active 3 67297037 Problem H/O laminectomy Z98.89 Active 1616 27964 Problem Other chronic pain G89.29 Active 8 2781453 Problem Anxiety disorder, unspecified type F41.9 Active 107438381 ALLERGIES No Information ENCOUNTERS Encounter Location Date Diagnosis [facility] [address] [facility] [id number] [address] [place] [phone] Oct, [facility] [address] [facility] [id number] [address] [place] [phone] Aug, Bipolar disorder, in partial remission, most recent episode hypomanic F31.71 ; Attention deficit hyperactivity disorder (ADHD), combined type F90.2 and Anxiety disorder, unspecified type F41.9 [facility] [address] [facility] [id number] [address] [place] [phone] Aug, [facility] [address] [facility] [id number] [address] [place] [id number] Aug, Bipolar disorder, in partial remission, most recent episode hypomanic F31.71 [facility] [address] [facility] [id number] [address] [place] [phone] Aug, [facility] [address] [id number] [address] [place] [phone] Aug, Bipolar disorder, in partial remission, most recent episode hypomanic F31.71 [facility] [address] [id number] [address] [place] [phone] Aug, Bipolar disorder, in partial remission, most recent episode hypomanic F31.71 ; Attention deficit hyperactivity disorder (ADHD), combined type F90.2 and Anxiety disorder, unspecified type F41.9 [facility] [address] [id number] [address] [place] [id number] Aug, Low back pain M54.5 and Pain in left wrist M25.532 [facility] [address] [id number] [address] [place] [phone] Aug, [facility] [address] [id number] [address] [place] [id number] Jun, [facility] [address] [facility] [id number] [address] [place] [id number] Apr, Bipolar disorder, in partial remission, most recent episode hypomanic F31.71 [facility] [address] [id number] [address] [place] [phone] Apr, [facility] [address] [id number] [address] [place] [id number] Apr, Bipolar disorder, in partial remission, most recent episode hypomanic F31.71 ; Attention deficit hyperactivity disorder (ADHD), combined type F90.2 ; Anxiety disorder, unspecified type F41.9 and Other alf (current) 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 Z79.899 [facility] [address] [id number] [address] [place] [id number] Apr, Bipolar disorder, in partial remission, most recent episode hypomanic F31.71 [facility] [address] [id number] [address] [place] [phone] Apr, Bipolar disorder, in partial remission, most recent episode hypomanic F31.71 [facility] [address] [facility] [id number] [address] [place] [phone] Mar, [facility] [address] [id number] [address] [place] [id number] Mar, Bipolar disorder, in partial remission, most recent episode hypomanic F31.71 ; Encounter for immunization Z23 and Low back pain M54.5 [facility] [address] [id number] [address] [place] [id number] Mar, Bipolar disorder, in partial remission, most recent episode hypomanic F31.71 [facility] [address] [id number] [address] [place] [phone] Mar, Bipolar disorder, in partial remission, most recent episode hypomanic F31.71 [facility] [address] [facility] [id number] [address] [place] [phone] Jan, Bipolar disorder, in partial remission, most recent episode hypomanic F31.71 [facility] [address] [facility] [id number] [address] [place] [phone] Jan, Bipolar disorder, in partial remission, most recent episode hypomanic F31.71 [facility] [address] [facility] [id number] [address] [place] [id number] Dec, Bipolar disorder, in partial remission, most recent episode hypomanic F31.71 [facility] [address] [facility] [id number] [address] [place] [id number] Dec, Bipolar disorder, in partial remission, most recent episode hypomanic F31.71 ; Attention deficit hyperactivity disorder (ADHD), combined type F90.2 ; Anxiety disorder, unspecified type F41.9 and Other alf (current) 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 Z79.899 [facility] [address] [facility] [id number] [address] [place] [phone] Dec, Bipolar disorder, in partial remission, most recent episode hypomanic F31.71 [facility] [address] [facility] [id number] [address] [place] [id number] Dec, Bipolar disorder, in partial remission, most recent episode hypomanic F31.71 [facility] [address] [id number] [address] [place] [phone] October, Bipolar disorder, in partial remission, most recent episode hypomanic F31.71 [facility] [address] [id number] [address] [place] [id number] October, [facility] [address] [id number] [address] [place] [phone] October, [facility] [address] [id number] [address] [place] [phone] Oct, Bipolar disorder, in partial remission, most recent episode hypomanic F31.71 ; Attention deficit hyperactivity disorder (ADHD), combined type F90.2 ; Anxiety disorder, unspecified type F41.9 and Encounter for drug screening Z02.83 [facility] [address] [id number] [address] [place] [phone] Oct, Bipolar disorder, in partial remission, most recent episode hypomanic F31.71 [facility] [address] [id number] [address] [place] [id number] Oct, Bipolar disorder, in partial remission, most recent episode hypomanic F31.71 [facility] [address] [id number] [address] [place] [phone] Aug, Bipolar disorder, in partial remission, most recent episode hypomanic F31.71 [facility] [address] [id number] [address] [place] [phone] Aug, Bipolar disorder, in partial remission, most recent episode hypomanic F31.71 [facility] [address] [id number] [address] [place] [phone] Aug, Bipolar disorder, in partial remission, most recent episode hypomanic F31.71 [facility] [address] [id number] [address] [place] [phone] Jul, Bipolar disorder, in partial remission, most recent episode hypomanic F31.71 ; Attention deficit hyperactivity disorder (ADHD), combined type F90.2 and Anxiety disorder, unspecified type F41.9 [facility] [address] [id number] [address] [place] [phone] Jul, Bipolar disorder, in partial remission, most recent episode hypomanic F31.71 [facility] [address] [id number] [address] [place] [id number] Jun, Bipolar disorder, in partial remission, most recent episode hypomanic F31.71 [facility] [address] [id number] [address] [place] [phone] May, Bipolar disorder, in partial remission, most recent episode hypomanic F31.71 [facility] [address] [facility] [id number] [address] [place] [phone] May, Bipolar disorder, in partial remission, most recent episode hypomanic F31.71 [facility] [address] [facility] [id number] [address] [place] [phone] Apr, [facility] [address] [id number] [address] [place] [phone] Apr, Bipolar disorder, in partial remission, most recent episode hypomanic F31.71 ; Attention deficit hyperactivity disorder (ADHD), combined type F90.2 ; Anxiety disorder, unspecified type F41.9 and Cannabis abuse F12.10 [facility] [address] [id number] [address] [place] [phone] Apr, Attention deficit hyperactiv ity disorder (ADHD), combined type F90.2 [facility] [address] [id number] [address] [place] [phone] Mar, Attention deficit hyperactiv ity disorder (ADHD), combined type F90.2 [facility] [address] [facility] [id number] [address] [place] [phone] Mar, Anxiety disorder, unspecifie d type F41.9 [facility] [address] [facility] [id number] [address] [place] [phone] Jan, Attention deficit hyperactiv ity disorder (ADHD), combined type F90.2 [facility] [address] [facility] [id number] [address] [place] [phone] Jan, Anxiety disorder, unspecifie d type F41.9 [facility] [address] [facility] [id number] [address] [place] [phone] Jan, Other chronic pain G89.29 ; Chronic hepatitis C without hepatic coma B18.2 and Bipolar 1 disorder F31.9 [facility] [address] [facility] [id number] [address] [place] [phone] Dec, Attention deficit hyperactiv ity disorder (ADHD), combined type F90.2 [facility] [address] [facility] [id number] [address] [place] [id number] Dec, Bipolar disorder, in partial remission, most recent episode hypomanic F31.71 ; Attention deficit hyperactivity disorder (ADHD), combined type F90.2 and Anxiety disorder, unspecified type F41.9 [facility] [address] [facility] [id number] [address] [place] [phone] Dec, Bipolar disorder, in partial remission, most recent episode hypomanic F31.71 ; Attention deficit hyperactivity disorder (ADHD), combined type F90.2 and Anxiety disorder, unspecified type F41.9 [facility] [address] [facility] [id number] [address] [place] [id number] Dec, Bipolar 1 disorder F31.9 and Attention deficit R41.840 [facility] [address] [facility] [id number] [address] [place] [phone] Oct, Other chronic pain G89.29 ; Alopecia L65.9 and Screening, lipid Z13.220 [facility] [address] [facility] [id number] [address] [place] [phone] Oct, [place] [address] [facility] [id number] [address] [place] [phone] Aug, [facility] [address] [facility] [id number] [address] [place] [phone] Aug, Eustachian tube dysfunction, right H69.81 ; Vertigo R42 and Other chronic pain G89.29 [facility] [address] [id number] [address] [place] [id number] Aug, [facility] [address] [id number] [address] [place] [phone] Jun, [facility] [address] [id number] [address] [place] [phone] Jun, Low back pain M54.5 and Othe r chronic pain G89.29 [facility] [address] [id number] [address] [place] [phone] Jun, [facility] [address] [id number] [address] [place] [phone] May, [facility] [address] [id number] [address] [place] [phone] Jan, [facility] [address] [id number] [address] [place] [phone] Dec, [facility] [address] [id number] [address] [place] [phone] Dec, [facility] [address] [id number] [address] [place] [phone] Jun, [facility] [address] [id number] [address] [place] [id number] Apr, Eustachian tube dysfunction, unspecified laterality H69.80 ; Hot flashes N95.1 and Encounter for immunization Z23 [facility] [address] [id number] [address] [place] [phone] Jan, [facility] [address] [id number] [address] [place] [phone] Jan, [facility] [address] [id number] [address] [place] [phone] Jan, [facility] [address] [id number] [address] [place] [phone] Jan, [facility] [address] [id number] [address] [place] [phone] Jan, Encounter to establish care V65.8 ; Bipolar 1 disorder 296.7 ; Abdominal pain 789.00 ; Constipation 564.00 ; Hard of hearing 389.9 and Drug abuse 305.90 [facility] [address] [id number] [address] [place] [phone] Dec, [facility] [address] [id number] [address] [place] [phone] October, [facility] [address] [id number] [address] [place] [phone] October, [facility] [address] [id number] [address] [place] [phone] Oct, [facility] [address] [id number] [address] [place] [phone] Oct, [facility] [address] [id number] [address] [place] [phone] Oct, [facility] [address] [id number] [address] [place] [phone] Aug, [facility] [address] [id number] [address] [place] [phone] Aug, [facility] [address] [id number] [address] [place] [phone] Aug, [facility] [address] [id number] [address] [place] [phone] Aug, [facility] [address] [id number] [address] [place] [phone] Aug, [facility] [address] [id number] [address] [place] [phone] Aug, [facility] [address] [id number] [address] [place] [address], [place] [id number] Aug, 2014 [facility] [address] [id number] [address] [place] [address], [place] [id number] Aug, 2014 [facility] [address] [id number] [address] [place] [address], [place] [id number] Aug, 2014 [facility] [address] [id number] [address] [place] [address], [place] [id number] Aug, 2014 [facility] [address] [id number] [address] [place] [address], [place] [id number] Aug, 2014 [facility] [address] [id number] [address] [place] [address], [place] [id number] Aug, 2014 [facility] [address] [id number] [address] [place] [address], [place] [id number] Aug, 2014 [facility] [address] [id number] [address] [place] [address], [place] [address] Aug, 2014 [facility] [address] [id number] [address] [place] [address], [place] [id number] Aug, [facility] [address] [id number] [address] [place] [address], [place] [id number] Jul, [facility] [address] [id number] [address] [place] [address], [place] [id number] Jul, [facility] [address] [id number] [address] [place] [address], [place] [id number] Jul, [facility] [address] [id number] [address] [place] [address], [place] [id number] Jul, [facility] [address] [id number] [address] [place] [address], [place] [id number] Jul, [facility] [address] [id number] [address] [place] [address], [place] [id number] Jul, [facility] [address] [id number] [address] [place] [address], [place] [id number] Jul, [facility] [address] [id number] [address] [place] [address], [place] [id number] Jul, [facility] [address] [id number] [address] [place] [address], [place] [id number] Jun, [facility] [address] [id number] [address] [place] [address], [place] [id number] Jun, [facility] [address] [id number] [address] [place] [address], [place] [id number] Jun, [facility] [address] [id number] [address] [place] [address], [place] [id number] Jun, [facility] [address] [id number] [address] [place] [address], [place] [id number] Jun, [facility] [address] [id number] [address] [place] [address], [place] [id number] Jun, [facility] [address] [id number] [address] [place] [address], [place] [id number] Jun, [facility] [address] [id number] [address] [place] [address], [place] [id number] Jun, [facility] [address] [id number] [address] [place] [address], [place] [id number] Jun, [facility] [address] [id number] [address] [place] [address], [place] [id number] Jun, [facility] [address] [id number] [address] [place] [address], [place] [address] Jun, [facility] [address] [id number] [address] [place] [address], [place] [id number] May, [facility] [address] [id number] [address] [place] [address], [place] [address] May, [facility] [address] [id number] [address] [place] [address], [place] [id number] May, [facility] [address] [id number] [address] [place] [address], [place] [address] May, [facility] [address] [id number] [address] [place] [address], [place] [id number] May, [facility] [address] [id number] [address] [place] [address], [place] [id number] May, [facility] [address] [id number] [address] [place] [address], [place] [id number] May, [facility] [address] [id number] [address] [place] [address], [place] [address] Apr, [facility] [address] [id number] [address] [place] [address], [place] [id number] Apr, [facility] [address] [id number] [address] [place] [address], [place] [address] Apr, [facility] [address] [id number] [address] [place] [address], [place] [id number] Apr, [facility] [address] [id number] [address] [place] [address], [place] [id number] Apr, [facility] [address] [id number] [address] [place] [address], [place] [id number] Apr, [facility] [address] [id number] [address] [place] [address], [place] [id number] Mar, [facility] [address] [id number] [address] [place] [address], [place] [id number] 29 Mar, 2013 [facility] [address] [id number] [address] [place] [address], [place] [id number] 10 Mar, 2013 [facility] [address] [id number] [address] [place] [address], [place] [id number] 10 Mar, 2013 [facility] [address] [id number] [address] [place] [address], [place] [id number] Mar, 2013 [facility] [address] [id number] [address] [place] [address], [place] [id number] Mar, [facility] [address] [id number] [address] [place] [address], [place] [address] Jan, [facility] [address] [id number] [address] [place] [address], [place] [id number] Jan, [facility] [address] [id number] [address] [place] [address], [place] [id number] Jan, [facility] [address] [id number] [address] [place] [address], [place] [address] Jan, [facility] [address] [id number] [address] [place] [address], [place] [id number] Dec, [facility] [address] [id number] [address] [place] [address], [place] [id number] Dec, [facility] [address] [id number] [address] [place] [address], [place] [id number] Dec, [facility] [address] [id number] [address] [place] [address], [place] [address] Dec, [facility] [address] [id number] [address] [place] [address], [place] [id number] Dec, [facility] [address] [id number] [address] [place] [address], [place] [id number] Dec, [facility] [address] [id number] [address] [place] [address], [place] [id number] Dec, [facility] [address] [id number] [address] [place] [address], [place] [id number] Dec, [facility] [address] [id number] [address] [place] [address], [place] [id number] Dec, [facility] [address] [id number] [address] [place] [address], [place] [id number] Dec, [facility] [address] [id number] [address] [place] [address], [place] [id number] Dec, [facility] [address] [id number] [address] [place] [address], [place] [id number] Dec, [facility] [address] [id number] [address] [place] [address], [place] [id number] October, [facility] [address] [id number] [address] [place] [address], [place] [id number] October, [facility] [address] [id number] [address] [place] [address], [place] [id number] October, [facility] [address] [id number] [address] [place] [address], [place] [id number] October, [facility] [address] [id number] [address] [place] [address], [place] [id number] October, [facility] [address] [id number] [address] [place] [address], [place] [id number] October, [facility] [address] [id number] [address] [place] [address], [place] [address] Oct, [facility] [address] [id number] [address] [place] [address], [place] [id number] Oct, [facility] [address] [id number] [address] [place] [address], [place] [id number] Oct, [facility] [address] [id number] [address] [place] [address], [place] [id number] Oct, [facility] [address] [id number] [address] [place] [address], [place] [id number] Oct, [facility] [address] [id number] [address] [place] [address], [place] [id number] Oct, [facility] [address] [id number] [address] [place] [address], [place] [id number] Oct, [facility] [address] [id number] [address] [place] [address], [place] [id number] Oct, [facility] [address] [id number] [address] [place] [address], [place] [id number] Oct, [facility] [address] [id number] [address] [place] [address] 09 Oct, 2013 [facility] [address] [id number] [address] [place] [address] Oct, [facility] [address] [id number] [address] [place] [address], [place] [address] Oct, [facility] [address] [id number] [address] [place] [address], [place] [address] Aug, [facility] [address] [id number] [address] [place] [address], [place] [address] Aug, [facility] [address] [id number] [address] [place] [address], [place] [address] Aug, [facility] [address] [id number] [address] [place] [address], [place] [address] Aug, [facility] [address] [id number] [address] [place] [address], [place] [address] Aug, [facility] [address] [id number] [address] [place] [address], [place] [address] 05 Aug, 2013 [facility] [address] [id number] [address] [place] [address], [place] [address] Aug, [facility] [address] [id number] [address] [place] [address], [place] [address] Aug, [facility] [address] [id number] [address] [place] [address], [place] [address] Aug, [facility] [address] [id number] [address] [place] [address], [place] [address] Aug, [facility] [address] [id number] [address] [place] [address], [place] [address] Aug, [facility] [address] [id number] [address] [place] [address], [place] [address] Aug, [facility] [address] [id number] [address] [place] [address], [place] [address] Aug, [facility] [address] [id number] [address] [place] [address], [place] [address] 20 Aug, 2013 [facility] [address] [id number] [address] [place] [address], [place] [address] 14 Aug, 2013 [facility] [address] [id number] [address] [place] [address], [place] [address] 14 Aug, 2013 [facility] [address] [id number] [address] [place] [address], [place] [address] 14 Aug, 2013 [facility] [address] [id number] [address] [place] [address], [place] [address] 14 Aug, 2013 [facility] [address] [id number] [address] [place] [address], [place] [id number] 07 Aug, 2013 [facility] [address] [id number] [address] [place] [address], [place] [address] 07 Aug, 2013 [facility] [address] [id number] [address] [place] [address], [place] [address] 06 Aug, 2013 [facility] [address] [id number] [address] [place] [address], [place] [id number] 06 Aug, 2013 [facility] [address] [id number] [address] [place] [address], [place] [address] 04 Aug, 2013 [facility] [address] [id number] [address] [place] [address], [place] [address] 04 Aug, 2013 [facility] [address] [id number] [address] [place] [address], [place] [address] Aug, [facility] [address] [id number] [address] [place] [address], [place] [address] Jul, [facility] [address] [id number] [address] [place] [address], [place] [address] Jul, [facility] [address] [id number] [address] [place] [address], [place] [address] Jul, [facility] [address] [id number] [address] [place] [address], [place] [address] Jul, [facility] [address] [id number] [address] [place] [address], [place] [address] Jul, [facility] [address] [id number] [address] [place] [address], [place] [id number] Jul, [facility] [address] [id number] [address] [place] [address], [place] [address] Jul, [facility] [address] [id number] [address] [place] [address], [place] [address] Jul, [facility] [address] [id number] [address] [place] [address], [place] [address] Jul, [facility] [address] [id number] [address] [place] [address], [place] [address] Jul, [facility] [address] [id number] [address] [place] [address], [place] [address] Jul, [facility] [address] [id number] [address] [place] [address], [place] [address] Jul, [facility] [address] [id number] [address] [place] [address], [place] [address] Jul, [facility] [address] [id number] [address] [place] [address], [place] [address] Jul, [facility] [address] [id number] [address] [place] [address], [place] [address] Jul, [facility] [address] [id number] [address] [place] [address], [place] [address] Jul, [facility] [address] [id number] [address] [place] [address], [place] [address] Jul, [facility] [address] [id number] [address] [place] [address], [place] [address] Jul, [facility] [address] [id number] [address] [place] [address], [place] [address] Jul, [facility] [address] [id number] [address] [place] [address], [place] [address] Jul, [facility] [address] [id number] [address] [place] [address], [place] [address] Jun, [facility] [address] [id number] [address] [place] [address], [place] [address] Jun, [facility] [address] [id number] [address] [place] [address], [place] [address] Jun, [facility] [address] [id number] [address] [place] [address], [place] [address] Jun, [facility] [address] [id number] [address] [place] [address], [place] [address] Jun, [facility] [address] [id number] [address] [place] [address], [place] [address] Jun, [facility] [address] [id number] [address] [place] [address], [place] [address] Jun, [facility] [address] [id number] [address] [place] [address], [place] [address] Jun, [facility] [address] [id number] [address] [place] [address], [place] [address] Jun, [facility] [address] [id number] [address] [place] [address], [place] [address] Jun, [facility] [address] [id number] [address] [place] [address], [place] [address] Jun, [facility] [address] [id number] [address] [place] [address], [place] [address] Jun, [facility] [address] [id number] [address] [place] [address], [place] [address] Jun, [facility] [address] [id number] [address] [place] [address], [place] [address] Jun, [facility] [address] [id number] [address] [place] [address], [place] [address] 20 Jun, 2013 [facility] [address] [id number] [address] [place] [address], [place] [address] 18 Jun, 2013 [facility] [address] [id number] [address] [place] [address], [place] [address] 18 Jun, 2013 [facility] [address] [id number] [address] [place] [address], [place] [address] 17 Jun, 2013 [facility] [address] [id number] [address] [place] [address], [place] [address] 17 Jun, 2013 [facility] [address] [id number] [address] [place] [address], [place] [address] 13 Jun, 2013 [facility] [address] [id number] [address] [place] [address], [place] [address] 12 Jun, 2013 [facility] [address] [id number] [address] [place] [address], [place] [address] 12 Jun, 2013 [facility] [address] [id number] [address] [place] [address], [place] [address] 09 Jun, 2013 [facility] [address] [id number] [address] [place] [address], [place] [address] 05 Jun, 2013 [facility] [address] [id number] [address] [place] [address], [place] [address] 05 Jun, 2013 [facility] [address] [id number] [address] [place] [address], [place] [address] 04 Jun, 2013 [facility] [address] [id number] [address] [place] [address], [place] [address] 04 Jun, 2013 [facility] [address] [id number] [address] [place] [address], [place] [address] 17 May, 2013 [facility] [address] [id number] [address] [place] [address], [place] [address] 17 May, 2013 [facility] [address] [id number] [address] [place] [address], [place] [address] May, [facility] [address] [id number] [address] [place] [address], [place] [address] May, [facility] [address] [id number] [address] [place] [address], [place] [address] May, [facility] [address] [id number] [address] [place] [address], [place] [address] May, [facility] [address] [id number] [address] [place] [address], [place] [address] Apr, [facility] [address] [id number] [address] [place] [address], [place] [address] Apr, [facility] [address] [id number] [address] [place] [address], [place] [address] Apr, [facility] [address] [id number] [address] [place] [address], [place] [address] Apr, [facility] [address] [id number] [address] [place] [address], [place] [address] Apr, [facility] [address] [id number] [address] [place] [address], [place] [address] Apr, [facility] [address] [id number] [address] [place] [address], [place] [address] Apr, [facility] [address] [id number] [address] [place] [address], [place] [address] Apr, [facility] [address] [id number] [address] [place] [address], [place] [address] 26 Mar, 2013 [facility] [address] [id number] [address] [place] [address], [place] [address] 24 Sep2012 [facility] [address] [id number] [address] [place] [address], [place] [address] 17 Mar, 2013 [facility] [address] [id number] [address] [place] [address], [place] [address] 17 Mar, 2013 [facility] [address] [id number] [address] [place] [address] [place] [address] 11 Mar, 2013 [facility] [address] [id number] [address] [place] [address], [place] [address] 10 Mar, 2013 [facility] [address] [id number] [address] [place] [address], [place] [address] 05 Mar, 2013 [facility] [address] [id number] [address] [place] [address], [place] [address] 04 Mar, 2013 [facility] [address] [id number] [address] [place] [address], [place] [address] 20 Jan, 2013 [facility] [address] [id number] [address] [place] [address], [place] [address] Jan, [facility] [address] [id number] [address] [place] [address], [place] [address] 14 Jan, 2013 [facility] [address] [id number] [address] [place] [address], [place] [address] Jan, [facility] [address] [id number] [address] [place] [address], [place] [address] Jan, [facility] [address] [id number] [address] [place] [address], [place] [address] Jan, [facility] [address] [id number] [address] [place] [address], [place] [address] Dec, [facility] [address] [id number] [address] [place] [address], [place] [address] Dec, [facility] [address] [id number] [address] [place] [address], [place] [address] Dec, [facility] [address] [id number] [address] [place] [address], [place] [address] Dec, [facility] [address] [id number] [address] [place] [address], [place] [address] Dec, [facility] [address] [id number] [address] [place] [address], [place] [address] 17 Dec, 2012 [facility] [address] [id number] [address] [place] [address], [place] [address] 16 Dec, 2012 [facility] [address] [id number] [address] [place] [address], [place] [address] 16 Dec, 2012 [facility] [address] [id number] [address] [place] [address], [place] [address] 15 Dec, 2012 [facility] [address] [id number] [address] [place] [address], [place] [address] 10 Dec, 2012 [facility] [address] [id number] [address] [place] [address], [place] [address] 28 Dec, 2012 [facility] [address] [id number] [address] [place] [address], [place] [address] Dec, [facility] [address] [id number] [address] [place] [address], [place] [address] Dec, [facility] [address] [id number] [address] [place] [address], [place] [address] Dec, [facility] [address] [id number] [address] [place] [address], [place] [address] Dec, [facility] [address] [id number] [address] [place] [address], [place] [address] Dec, [facility] [address] [id number] [address] [place] [address], [place] [address] October, [facility] [address] [id number] [address] [place] [address], [place] [address] October, [facility] [address] [id number] [address] [place] [address], [place] [address] October, [facility] [address] [id number] [address] [place] [address], [place] [address] October, [facility] [address] [id number] [address] [place] [address], [place] [address] October, [facility] [address] [id number] [address] [place] [address], [place] [address] October, [facility] [address] [id number] [address] [place] [address], [place] [address] October, [facility] [address] [id number] [address] [place] [address], [place] [address] Oct, [facility] [address] [id number] [address] [place] [address], [place] [address] Oct, [facility] [address] [id number] [address] [place] [address], [place] [address] Oct, [facility] [address] [id number] [address] [place] [address], [place] [address] Oct, [facility] [address] [id number] [address] [place] [address], [place] [address] Oct, [facility] [address] [id number] [address] [place] [address], [place] [address] Oct, [facility] [address] [id number] [address] [place] [address], [place] [address] Oct, [facility] [address] [id number] [address] [place] [address], [place] [address] 15 Oct, 2012 [facility] [address] [id number] [address] [place] [address], [place] [address] Oct, [facility] [address] [id number] [address] [place] [address], [place] [address] Oct, [facility] [address] [id number] [address] [place] [address], [place] [address] Oct, [facility] [address] [id number] [address] [place] [address], [place] [address] Oct, [facility] [address] [id number] [address] [place] [address], [place] [address] Aug, [facility] [address] [id number] [address] [place] [address], [place] [address] Aug, [facility] [address] [id number] [address] [place] [address], [place] [address] 12 Aug, 2012 [facility] [address] [id number] [address] [place] [address], [place] [address] 06 Aug, 2012 [facility] [address] [id number] [address] [place] [address], [place] [address] 05 Aug, 2012 [facility] [address] [id number] [address] [place] [address], [place] [address] 05 Aug, 2012 [facility] [address] [id number] [address] [place] [address], [place] [address] 20 Aug, 2012 [facility] [address] [id number] [address] [place] [address], [place] [id number] 14 Aug, 2012 [facility] [address] [id number] [address] [place] [address], [place] [address] 12 Aug, 2012 [facility] [address] [id number] [address] [place] [address], [place] [address] Aug, [facility] [address] [id number] [address] [place] [address], [place] [address] Jul, [facility] [address] [id number] [address] [place] [address], [place] [address] Jul, [facility] [address] [id number] [address] [place] [address], [place] [address] Jul, [facility] [address] [id number] [address] [place] [address], [place] [id number] Jun, [facility] [address] [id number] [address] [place] [address], [place] [id number] Jun, [facility] [address] [id number] [address] [place] [address], [place] [id number] Jun, [facility] [address] [id number] [address] [place] [address], [place] [id number] Jun, [facility] [address] [id number] [address] [place] [address], [place] [id number] Jun, [facility] [address] [id number] [address] [place] [address], [place] [id number] 14 Jun, 2012 [facility] [address] [id number] [address] [place] [address], [place] [id number] 14 Jun, 2012 [facility] [address] [id number] [address] [place] [address], [place] [id number] 13 Jun, 2012 [facility] [address] [id number] [address] [place] [address], [place] [id number] 13 Jun, 2012 [facility] [address] [id number] [address] [place] [address], [place] [id number] 11 Jun, 2012 [facility] [address] [id number] [address] [place] [address], [place] [id number] 11 Jun, 2012 [facility] [address] [id number] [address] [place] [address], [place] [id number] 11 Jun, 2012 [facility] [address] [id number] [address] [place] [address], [place] [id number] 11 Jun, 2012 [facility] [address] [id number] [address] [place] [address], [place] [id number] 07 Jun, 2012 [facility] [address] [id number] [address] [place] [address], [place] [id number] 07 Jun, 2012 [facility] [address] [id number] [address] [place] [address], [place] [id number] 06 Jun, 2012 [facility] [address] [id number] [address] [place] [address], [place] [id number] 06 Jun, 2012 [facility] [address] [id number] [address] [place] [address], [place] [id number] Jun, [facility] [address] [id number] [address] [place] [address], [place] [id number] 06 Jun, 2012 [facility] [address] [id number] [address] [place] [address], [place] [id number] 05 Jun, 2012 [facility] [address] [id number] [address] [place] [address], [place] [id number] Jun, [facility] [address] [id number] [address] [place] [address], [place] [id number] Jun, [facility] [address] [id number] [address] [place] [address], [place] [id number] Jun, [facility] [address] [id number] [address] [place] [address], [place] [id number] May, [facility] [address] [id number] [address] [place] [address], [place] [id number] May, [facility] [address] [id number] [address] [place] [address], [place] [id number] May, [facility] [address] [id number] [address] [place] [address], [place] [id number] May, [facility] [address] [id number] [address] [place] [address], [place] [id number] May, [facility] [address] [id number] [address] [place] [address], [place] [id number] May, [facility] [address] [id number] [address] [place] [address], [place] [id number] May, [facility] [address] [id number] [address] [place] [address], [place] [id number] May, [facility] [address] [id number] [address] [place] [address], [place] [id number] Apr, [facility] [address] [id number] [address] [place] [id number] Apr, [facility] [address] [id number] [address] [place] [address], [place] [id number] Apr, [facility] [address] [id number] [address] [place] [address], [place] [id number] Apr, [facility] [address] [id number] [address] [place] [id number] Apr, [facility] [address] [id number] [address] [place] [address], [place] [id number] Apr, [facility] [address] [id number] [address] [place] [address], [place] [id number] Apr, [facility] [address] [id number] [address] [place] [address], [place] [id number] Apr, [facility] [address] [id number] [address] [place] [address], [place] [id number] Apr, [facility] [address] [id number] [address] [place] [address], [place] [id number] Apr, [facility] [address] [id number] [address] [place] [address], [place] [id number] Apr, [facility] [address] [id number] [address] [place] [address], [place] [id number] Apr, [facility] [address] [id number] [address] [place] [address], [place] [id number] Mar, [facility] [address] [id number] [address] [place] [address], [place] [id number] 18 Mar, 2012 [facility] [address] [id number] [address] [place] [id number] Mar, [facility] [address] [id number] [address] [place] [id number] Mar, [facility] [facility] [address] [id number] [address] [place] [id number] Mar, [facility] [address] [id number] [address] [place] [id number] Mar, [facility] [address] [id number] [address] [place] [address], [place] [id number] Mar, [facility] [address] [id number] [address] [place] [address], [place] [id number] Jan, [facility] [address] [id number] [address] [place] [id number] Jan, [facility] [address] [id number] [facility] [id number] Jan, [facility] [address] [id number] [facility] [id number] Jan, [facility] [address] [id number] [address] [place] [address], [place] [id number] Jan, [facility] [address] [id number] [address] [place] [address], [place] [id number] Jan, [facility] [address] [id number] [address] [place] [address], [place] [id number] Jan, [facility] [address] [id number] [address] [place] [address], [place] [id number] Jan, [facility] [address] [id number] [address] [place] [address], [place] [id number] Jan, [facility] [address] [id number] [address] [place] [address], [place] [id number] Jan, [facility] [address] [id number] [address] [place] [address], [place] [address] Jan, [facility] [address] [id number] [address] [place] [address], [place] [id number] Dec, [facility] [address] [id number] [address] [place] [address], [place] [id number] Dec, [facility] [address] [id number] [address] [place] [address], [place] [id number] Dec, [facility] [address] [id number] [address] [place] [address], [place] [id number] Dec, [facility] [address] [id number] [address] [place] [address], [place] [id number] Dec, [facility] [address] [id number] [address] [place] [address], [place] [id number] Dec, [facility] [address] [id number] [address] [place] [address] [place] [id number] 18 Jan, 2012 [facility] [address] [id number] [address] [place] [address], [place] [id number] 17 Jan, 2012 [facility] [address] [id number] [address] [place] [address], [place] [id number] 16 Jan, 2012 [facility] [address] [id number] [address] [place] [address], [place] [id number] 13 Jan, 2012 [facility] [address] [id number] [address] [place] [address], [place] [id number] 13 Jan, 2012 [facility] [address] [id number] [address] [place] [address], [place] [id number] 02 Jan, 2012 [facility] [address] [id number] [address] [place] [address], [place] [id number] Dec, [facility] [address] [id number] [address] [place] [address], [place] [id number] Dec, [facility] [address] [id number] [address] [place] [address], [place] [id number] Dec, [facility] [address] [id number] [address] [place] [address], [place] [id number] Dec, [facility] [address] [id number] [address] [place] [address], [place] [id number] 15 Dec, 2011 [facility] [address] [id number] [address] [place] [address], [place] [id number] Dec, [facility] [address] [id number] [address] [place] [address], [place] [id number] Dec, [facility] [address] [id number] [address] [place] [address], [place] [id number] October, [facility] [address] [id number] [address] [place] [address], [place] [id number] October, [facility] [address] [id number] [address] [place] [address], [place] [id number] October, [facility] [address] [id number] [address] [place] [address], [place] [id number] October, [facility] [address] [id number] [address] [place] [address], [place] [id number] October, [facility] [address] [id number] [address] [place] [address], [place] [id number] October, [facility] [address] [id number] [address] [place] [address], [place] [id number] Oct, [facility] [address] [id number] [address] [place] [address], [place] [id number] 24 Oct, 2011 [facility] [address] [id number] [address] [place] [address], [place] [address] Oct, [facility] [address] [id number] [address] [place] [address], [place] [id number] Oct, [facility] [address] [id number] [address] [place] [address], [place] [id number] Oct, [facility] [address] [id number] [address] [place] [address], [place] [id number] Oct, [facility] [address] [id number] [address] [place] [address], [place] [id number] Oct, [facility] [address] [id number] [address] [place] [address], [place] [id number] Aug, [facility] [address] [id number] [address] [place] [address], [place] [id number] 29 Sep, 2011 [facility] [address] [id number] [address] [place] [address], [place] [id number] 19 Sep, 2011 [facility] [address] [id number] [address] [place] [address], [place] [id number] 13 Sep, 2011 [facility] [address] [id number] [address] [place] [address], [place] [id number] 05 Sep, 2011 [facility] [address] [id number] [address] [place] [address], [place] [id number] Aug, [facility] [address] [id number] [address] [place] [address], [place] [address] Aug, [facility] [address] [id number] [address] [place] [address], [place] [id number] Aug, [facility] [address] [id number] [address] [place] [address], [place] [address] Aug, [facility] [address] [id number] [address] [place] [address], [place] [id number] Jul, [facility] [address] [id number] [address] [place] [address], [place] [id number] Jul, [facility] [address] [id number] [address] [place] [address], [place] [id number] Jul, [facility] [address] [id number] [address] [place] [address], [place] [id number] Jul, [facility] [address] [id number] [address] [place] [address], [place] [id number] Jun, [facility] [address] [id number] [address] [place] [address], [place] [id number] Jun, [facility] [address] [id number] [address] [place] [address], [place] [id number] May, [facility] [address] [id number] [address] [place] [address], [place] [address] May, [facility] [address] [id number] [address] [place] [address], [place] [id number] May, [facility] [address] [id number] [address] [place] [address], [place] [id number] May, [facility] [address] [id number] [address] [place] [address], [place] [id number] 07 May, 2011 [facility] [address] [id number] [address] [place] [address], [place] [id number] Apr, [facility] [address] [id number] [address] [place] [id number] Apr, [facility] [address] [id number] [address] [place] [id number] Apr, [facility] [address] [id number] [address] [place] [id number] Jan, [facility] [address] [id number] [address] [place] [id number] Dec, [facility] [address] [id number] [address] [place] [id number] October, [facility] [address] [id number] [address] [place] [id number] Jun, [facility] [address] [id number] [address] [place] [id number] Apr, [facility] [address] [id number] [address] [place] [id number] Apr, [facility] [address] [id number] [address] [place] [id number] Apr, [facility] [address] [id number] [address] [place] [id number] Jun, IMMUNIZATIONS No Known Immunizations SOCIAL HISTORY Never Assessed REASON FOR VISIT [facility] PLAN OF CARE VITAL SIGNS MEDICATIONS Unknown Medications RESULTS No Results PROCEDURES No Known procedures INSTRUCTIONS MEDICATIONS ADMINISTERED No Known Medications MEDICAL (GENERAL) HISTORY Type Description Date Medical History Psychiatric disorder Medical History Hard of hearing Surgical History Neofibrous tumor Surgical History back injection Hospitalization History Intestinal blockage Hospitalization History past psychiatric hospitalizations x2
--- OUTSIDE RECORDS SUMMARY | 2020-01-25 13:02 | XMS REPORT ---
Author Author Ana Mayer Doctor Organization [facility] Address Unknown Phone Unavailable Care Team Providers Care Craft Demonstrator Name Role Phone Migration, Doctor Unavailable Unavailable PROBLEMS Type Condition ICD9-CM Code SNS41-EL Code Onset Dates Condition S tatus SNOMED Code Problem Attention deficit R41.840 Active 76 454393 Problem Chronic hepatitis C without hepatic coma B18.2 Active 212715727 Problem Cannabis abuse F12.10 Active 67243 009 Problem Bipolar disorder, in partial remission, most rec ent episode hypomanic F31.71 Active 948741223 Problem Attention deficit hyperactivity disorder (ADHD), combi luciano type F90.2 Active 57323334 Problem Bipolar 1 disorder F31.9 Active 3 64512409 Problem H/O laminectomy Z98.89 Active 1616 13921 Problem Other chronic pain G89.29 Active 8 2141910 Problem Anxiety disorder, unspecified type F41.9 Active [id number] ALLERGIES No Information ENCOUNTERS Encounter Location Date Diagnosis [facility] [place] [address] [facility] [id number] [address] [place] [phone] Oct, [facility] [place] [address] [facility] [id number] [address] [place] [phone] Aug, Bipolar disorder, in partial remission, most recent episode hypomanic F31.71 ; Attention deficit hyperactivity disorder (ADHD), combined type F90.2 and Anxiety disorder, unspecified type F41.9 [facility] [place] [address] [facility] [id number] [address] [place] [phone] Aug, [facility] [place] [address] [facility] [id number] [address] [place] [phone] Aug, Bipolar disorder, in partial remission, most recent episode hypomanic F31.71 [facility] [place] [address] [facility] [id number] [address] [place] [phone] Aug, [facility] [place] [address] [id number] [address] [place] [id number] Aug, Bipolar disorder, in partial remission, most recent episode hypomanic F31.71 [facility] [place] [address] [id number] [address] [place] [phone] Aug, Bipolar disorder, in partial remission, most recent episode hypomanic F31.71 ; Attention deficit hyperactivity disorder (ADHD), combined type F90.2 and Anxiety disorder, unspecified type F41.9 [facility] [place] [address] [id number] [address] [place] [phone] Aug, Low back pain M54.5 and Pain in left wrist M25.532 [facility] [place] [address] [id number] [address] [place] [id number] Aug, [facility] [place] [address] [id number] [address] [place] [phone] Jun, [facility] [place] [address] [facility] [id number] [address] [place] [phone] Apr, Bipolar disorder, in partial remission, most recent episode hypomanic F31.71 [facility] [place] [address] [id number] [address] [place] [phone] Apr, [facility] [place] [address] [id number] [address] [place] [address] Apr, Bipolar disorder, in partial remission, most recent episode hypomanic F31.71 ; Attention deficit hyperactivity disorder (ADHD), combined type F90.2 ; Anxiety disorder, unspecified type F41.9 and Other mcfp (current) 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 Z79.899 [facility] [place] [address] [id number] [address] [place] [address] Apr, Bipolar disorder, in partial remission, most recent episode hypomanic F31.71 [facility] [place] [address] [id number] [address] [place] [id number] Apr, Bipolar disorder, in partial remission, most recent episode hypomanic F31.71 [facility] [place] [address] [facility] [id number] [address] [place] [phone] Mar, [facility] [place] [address] [id number] [address] [place] [address] Mar, Bipolar disorder, in partial remission, most recent episode hypomanic F31.71 ; Encounter for immunization Z23 and Low back pain M54.5 [facility] [place] [address] [id number] [address] [place] [phone] Mar, Bipolar disorder, in partial remission, most recent episode hypomanic F31.71 [facility] [place] [address] [id number] [address] [place] [phone] Mar, Bipolar disorder, in partial remission, most recent episode hypomanic F31.71 [facility] [place] [address] [facility] [id number] [address] [place] [address] Jan, Bipolar disorder, in partial remission, most recent episode hypomanic F31.71 [facility] [place] [address] [facility] [id number] [address] [place] [phone] Jan, Bipolar disorder, in partial remission, most recent episode hypomanic F31.71 [facility] [place] [address] [facility] [id number] [address] [place] [id number] Dec, Bipolar disorder, in partial remission, most recent episode hypomanic F31.71 [facility] [place] [address] [facility] [id number] [address] [place] [address] Dec, Bipolar disorder, in partial remission, most recent episode hypomanic F31.71 ; Attention deficit hyperactivity disorder (ADHD), combined type F90.2 ; Anxiety disorder, unspecified type F41.9 and Other mcfp (current) 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 Z79.899 [facility] [place] [address] [facility] [id number] [address] [place] [id number] Dec, Bipolar disorder, in partial remission, most recent episode hypomanic F31.71 [facility] [place] [address] [facility] [id number] [address] [place] [address] Dec, Bipolar disorder, in partial remission, most recent episode hypomanic F31.71 [facility] [place] [address] [id number] [address] [place] [id number] October, Bipolar disorder, in partial remission, most recent episode hypomanic F31.71 [facility] [place] [address] [id number] [address] [place] [id number] October, [facility] [place] [address] [id number] [address] [place] [id number] October, [facility] [place] [address] [id number] [address] [place] [phone] Oct, Bipolar disorder, in partial remission, most recent episode hypomanic F31.71 ; Attention deficit hyperactivity disorder (ADHD), combined type F90.2 ; Anxiety disorder, unspecified type F41.9 and Encounter for drug screening Z02.83 [facility] [place] [address] [id number] [address] [place] [address] Oct, Bipolar disorder, in partial remission, most recent episode hypomanic F31.71 [facility] [place] [address] [id number] [address] [place] [id number] Oct, Bipolar disorder, in partial remission, most recent episode hypomanic F31.71 [facility] [place] [address] [id number] [address] [place] [address] Aug, Bipolar disorder, in partial remission, most recent episode hypomanic F31.71 [facility] [place] [address] [id number] [address] [place] [id number] Aug, Bipolar disorder, in partial remission, most recent episode hypomanic F31.71 [facility] [place] [address] [id number] [address] [place] [id number] Aug, Bipolar disorder, in partial remission, most recent episode hypomanic F31.71 [facility] [place] [address] [id number] [address] [place] [id number] Jul, Bipolar disorder, in partial remission, most recent episode hypomanic F31.71 ; Attention deficit hyperactivity disorder (ADHD), combined type F90.2 and Anxiety disorder, unspecified type F41.9 [facility] [place] [address] [id number] [address] [place] [id number] Jul, Bipolar disorder, in partial remission, most recent episode hypomanic F31.71 [facility] [place] [address] [id number] [address] [place] [id number] Jun, Bipolar disorder, in partial remission, most recent episode hypomanic F31.71 [facility] [place] [address] [id number] [address] [place] [phone] May, Bipolar disorder, in partial remission, most recent episode hypomanic F31.71 [facility] [place] [address] [facility] [id number] [address] [place] [id number] May, Bipolar disorder, in partial remission, most recent episode hypomanic F31.71 [facility] [place] [address] [facility] [id number] [address] [place] [id number] Apr, [facility] [place] [address] [id number] [address] [place] [id number] Apr, Bipolar disorder, in partial remission, most recent episode hypomanic F31.71 ; Attention deficit hyperactivity disorder (ADHD), combined type F90.2 ; Anxiety disorder, unspecified type F41.9 and Cannabis abuse F12.10 [facility] [place] [address] [id number] [address] [place] [id number] Apr, Attention deficit hyperactiv ity disorder (ADHD), combined type F90.2 [facility] [place] [address] [id number] [address] [place] [id number] Mar, Attention deficit hyperactiv ity disorder (ADHD), combined type F90.2 [facility] [place] [address] [facility] [id number] [address] [place] [id number] Mar, Anxiety disorder, unspecifie d type F41.9 [facility] [place] [address] [facility] [id number] [address] [place] [id number] Jan, Attention deficit hyperactiv ity disorder (ADHD), combined type F90.2 [facility] [place] [address] [facility] [id number] [address] [place] [id number] Jan, Anxiety disorder, unspecifie d type F41.9 [facility] [place] [address] [facility] [id number] [address] [place] [id number] Jan, Other chronic pain G89.29 ; Chronic hepatitis C without hepatic coma B18.2 and Bipolar 1 disorder F31.9 [facility] [place] [address] [facility] [id number] [address] [place] [id number] Dec, Attention deficit hyperactiv ity disorder (ADHD), combined type F90.2 [facility] [place] [address] [facility] [id number] [address] [place] [id number] Dec, Bipolar disorder, in partial remission, most recent episode hypomanic F31.71 ; Attention deficit hyperactivity disorder (ADHD), combined type F90.2 and Anxiety disorder, unspecified type F41.9 [facility] [place] [address] [facility] [id number] [address] [place] [id number] Dec, Bipolar disorder, in partial remission, most recent episode hypomanic F31.71 ; Attention deficit hyperactivity disorder (ADHD), combined type F90.2 and Anxiety disorder, unspecified type F41.9 [facility] [place] [address] [facility] [id number] [address] [place] [id number] Dec, Bipolar 1 disorder F31.9 and Attention deficit R41.840 [facility] [place] [address] [facility] [id number] [address] [place] [address] Oct, Other chronic pain G89.29 ; Alopecia L65.9 and Screening, lipid Z13.220 [facility] [place] [address] [facility] [id number] [address] [place] [id number] Oct, [place] [address] [facility] [id number] [address] [place] [id number] Aug, [facility] [place] [address] [facility] [id number] [address] [place] [id number] Aug, Eustachian tube dysfunction, right H69.81 ; Vertigo R42 and Other chronic pain G89.29 [facility] [place] [address] [id number] [address] [place] [phone] Aug, [facility] [place] [address] [id number] [address] [place] [phone] Jun, [facility] [place] [address] [id number] [address] [place] [id number] Jun, Low back pain M54.5 and Othe r chronic pain G89.29 [facility] [place] [address] [id number] [address] [place] [id number] Jun, [facility] [place] [address] [id number] [address] [place] [id number] May, [facility] [place] [address] [id number] [address] [place] [id number] Jan, [facility] [place] [address] [id number] [address] [place] [phone] Dec, [facility] [place] [address] [id number] [address] [place] [id number] Dec, [facility] [place] [address] [id number] [address] [place] [phone] Jun, [facility] [place] [address] [id number] [address] [place] [address] Apr, Eustachian tube dysfunction, unspecified laterality H69.80 ; Hot flashes N95.1 and Encounter for immunization Z23 [facility] [place] [address] [id number] [address] [place] [id number] Jan, [facility] [place] [address] [id number] [address] [place] [phone] Jan, [facility] [place] [address] [id number] [address] [place] [phone] Jan, [facility] [place] [address] [id number] [address] [place] [id number] Jan, [facility] [address] [id number] [address] [place] [id number] Jan, Encounter to establish care V65.8 ; Bipolar 1 disorder 296.7 ; Abdominal pain 789.00 ; Constipation 564.00 ; Hard of hearing 389.9 and Drug abuse 305.90 [facility] [place] [address] [id number] [address] [place] [id number] Dec, [facility] [address] [id number] [address] [place] [id number] October, [facility] [address] [id number] [address] [place] [id number] October, [facility] [address] [id number] [address] [place] [phone] Oct, [facility] [address] [id number] [address] [place] [id number] Oct, [facility] [address] [id number] [address] [place] [phone] Oct, [facility] [address] [id number] [address] [place] [phone] Aug, [facility] [address] [id number] [address] [place] [phone] Aug, [facility] [address] [id number] [address] [place] [id number] Aug, [facility] [address] [id number] [address] [place] [phone] Aug, [facility] [address] [id number] [address] [place] [phone] Aug, [facility] [address] [id number] [address] [place] [phone] Aug, [facility] [address] [id number] [address] [place] [address], [place] [address] Aug, 2014 [facility] [address] [id number] [address] [place] [address], [place] [address] Aug, 2014 [facility] [address] [id number] [address] [place] [address], [place] [address] Aug, 2014 [facility] [address] [id number] [address] [place] [address], [place] [address] Aug, 2014 [facility] [address] [id number] [address] [place] [address], [place] [address] Aug, 2014 [facility] [address] [id number] [address] [place] [address], [place] [address] Aug, 2014 [facility] [address] [id number] [address] [place] [address], [place] [address] Aug, 2014 [facility] [address] [id number] [address] [place] [address], [place] [address] Aug, 2014 [facility] [address] [id number] [address] [place] [address], [place] [address] Aug, [facility] [address] [id number] [address] [place] [address], [place] [address] Jul, [facility] [address] [id number] [address] [place] [address], [place] [address] Jul, [facility] [address] [id number] [address] [place] [address], [place] [address] Jul, [facility] [address] [id number] [address] [place] [address], [place] [address] Jul, [facility] [address] [id number] [address] [place] [address], [place] [address] Jul, [facility] [address] [id number] [address] [place] [address], [place] [address] Jul, [facility] [address] [id number] [address] [place] [address], [place] [address] Jul, [facility] [address] [id number] [address] [place] [address], [place] [address] Jul, [facility] [address] [id number] [address] [place] [address], [place] [address] Jun, [facility] [address] [id number] [address] [place] [address], [place] [address] Jun, [facility] [address] [id number] [address] [place] [address], [place] [address] Jun, [facility] [address] [id number] [address] [place] [address], [place] [address] Jun, [facility] [address] [id number] [address] [place] [address], [place] [address] Jun, [facility] [address] [id number] [address] [place] [address], [place] [address] Jun, [facility] [address] [id number] [address] [place] [address], [place] [address] Jun, [facility] [address] [id number] [address] [place] [address], [place] [address] Jun, [facility] [address] [id number] [address] [place] [address], [place] [address] Jun, [facility] [address] [id number] [address] [place] [address], [place] [address] Jun, [facility] [address] [id number] [address] [place] [address], [place] [address] Jun, [facility] [address] [id number] [address] [place] [address], [place] [address] May, [facility] [address] [id number] [address] [place] [address], [place] [address] May, [facility] [address] [id number] [address] [place] [address], [place] [address] May, [facility] [address] [id number] [address] [place] [address], [place] [address] May, [facility] [address] [id number] [address] [place] [address], [place] [address] May, [facility] [address] [id number] [address] [place] [address], [place] [address] May, [facility] [address] [id number] [address] [place] [address], [place] [address] May, [facility] [address] [id number] [address] [place] [address], [place] [address] Apr, [facility] [address] [id number] [address] [place] [address], [place] [address] Apr, [facility] [address] [id number] [address] [place] [address], [place] [address] Apr, [facility] [address] [id number] [address] [place] [address], [place] [address] Apr, [facility] [address] [id number] [address] [place] [address], [place] [address] Apr, [facility] [address] [id number] [address] [place] [address], [place] [address] Apr, [facility] [address] [id number] [address] [place] [address], [place] [address] Mar, [facility] [address] [id number] [address] [place] [address], [place] [address] 29 Mar, 2013 [facility] [address] [id number] [address] [place] [address], [place] [address] 10 Mar, 2013 [facility] [address] [id number] [address] [place] [address], [place] [address] 10 Mar, 2013 [facility] [address] [id number] [address] [place] [address], [place] [address] Mar, 2013 [facility] [address] [id number] [address] [place] [address], [place] [address] Mar, [facility] [address] [id number] [address] [place] [address], [place] [address] Jan, [facility] [address] [id number] [address] [place] [address], [place] [address] Jan, [facility] [address] [id number] [address] [place] [address], [place] [address] Jan, [facility] [address] [id number] [address] [place] [address], [place] [address] Jan, [facility] [address] [id number] [address] [place] [address], [place] [address] Dec, [facility] [address] [id number] [address] [place] [address], [place] [address] Dec, [facility] [address] [id number] [address] [place] [address], [place] [address] Dec, [facility] [address] [id number] [address] [place] [address], [place] [address] Dec, [facility] [address] [id number] [address] [place] [address], [place] [address] Dec, [facility] [address] [id number] [address] [place] [address], [place] [address] Dec, [facility] [address] [id number] [address] [place] [address], [place] [address] Dec, [facility] [address] [id number] [address] [place] [address], [place] [address] Dec, [facility] [address] [id number] [address] [place] [address], [place] [address] Dec, [facility] [address] [id number] [address] [place] [address], [place] [address] Dec, [facility] [address] [id number] [address] [place] [address], [place] [address] Dec, [facility] [address] [id number] [address] [place] [address], [place] [address] Dec, [facility] [address] [id number] [address] [place] [address], [place] [address] October, [facility] [address] [id number] [address] [place] [address], [place] [address] October, [facility] [address] [id number] [address] [place] [address], [place] [address] October, [facility] [address] [id number] [address] [place] [address], [place] [address] October, [facility] [address] [id number] [address] [place] [address], [place] [address] October, [facility] [address] [id number] [address] [place] [address], [place] [address] October, [facility] [address] [id number] [address] [place] [address], [place] [address] Oct, [facility] [address] [id number] [address] [place] [address], [place] [address] Oct, [facility] [address] [id number] [address] [place] [address], [place] [address] Oct, [facility] [address] [id number] [address] [place] [address], [place] [address] Oct, [facility] [address] [id number] [address] [place] [address], [place] [address] Oct, [facility] [address] [id number] [address] [place] [address], [place] [address] Oct, [facility] [address] [id number] [address] [place] [address], [place] [address] Oct, [facility] [address] [id number] [address] [place] [address], [place] [address] Oct, [facility] [address] [id number] [address] [place] [address], [place] [address] Oct, [facility] [address] [id number] [address] [place] [address] 09 Oct, 2013 [facility] [address] [id number] [address] [place] [address] Oct, [facility] [address] [id number] [address] [place] [address], [place] [address] Oct, [facility] [address] [id number] [address] [place] [address], [place] [address] Aug, [facility] [address] [id number] [address] [place] [address], [place] [address] Aug, [facility] [address] [id number] [address] [place] [address], [place] [address] Aug, [facility] [address] [id number] [address] [place] [address], [place] [address] Aug, [facility] [address] [id number] [address] [place] [address], [place] [address] Aug, [facility] [address] [id number] [address] [place] [address], [place] [address] 05 Aug, 2013 [facility] [address] [id number] [address] [place] [address], [place] [address] Aug, [facility] [address] [id number] [address] [place] [address], [place] [address] Aug, [facility] [address] [id number] [address] [place] [address], [place] [address] Aug, [facility] [address] [id number] [address] [place] [address], [place] [address] Aug, [facility] [address] [id number] [address] [place] [address], [place] [address] Aug, [facility] [address] [id number] [address] [place] [address], [place] [address] Aug, [facility] [address] [id number] [address] [place] [address], [place] [address] Aug, [facility] [address] [id number] [address] [place] [address], [place] [address] 20 Aug, 2013 [facility] [address] [id number] [address] [place] [address], [place] [address] 14 Aug, 2013 [facility] [address] [id number] [address] [place] [address], [place] [address] 14 Aug, 2013 [facility] [address] [id number] [address] [place] [address], [place] [address] 14 Aug, 2013 [facility] [address] [id number] [address] [place] [address], [place] [address] 14 Aug, 2013 [facility] [address] [id number] [address] [place] [address], [place] [address] 07 Aug, 2013 [facility] [address] [id number] [address] [place] [address], [place] [address] 07 Aug, 2013 [facility] [address] [id number] [address] [place] [address], [place] [address] 06 Aug, 2013 [facility] [address] [id number] [address] [place] [address], [place] [address] 06 Aug, 2013 [facility] [address] [id number] [address] [place] [address], [place] [address] 04 Aug, 2013 [facility] [address] [id number] [address] [place] [address], [place] [address] 04 Aug, 2013 [facility] [address] [id number] [address] [place] [address], [place] [address] Aug, [facility] [address] [id number] [address] [place] [address], [place] [address] Jul, [facility] [address] [id number] [address] [place] [address], [place] [address] Jul, [facility] [address] [id number] [address] [place] [address], [place] [address] Jul, [facility] [address] [id number] [address] [place] [address], [place] [address] Jul, [facility] [address] [id number] [address] [place] [address], [place] [address] Jul, [facility] [address] [id number] [address] [place] [address], [place] [address] Jul, [facility] [address] [id number] [address] [place] [address], [place] [address] Jul, [facility] [address] [id number] [address] [place] [address], [place] [address] Jul, [facility] [address] [id number] [address] [place] [address], [place] [address] Jul, [facility] [address] [id number] [address] [place] [address], [place] [address] Jul, [facility] [address] [id number] [address] [place] [address], [place] [address] Jul, [facility] [address] [id number] [address] [place] [address], [place] [address] Jul, [facility] [address] [id number] [address] [place] [address], [place] [address] Jul, [facility] [address] [id number] [address] [place] [address], [place] [address] Jul, [facility] [address] [id number] [address] [place] [address], [place] [address] Jul, [facility] [address] [id number] [address] [place] [address], [place] [address] Jul, [facility] [address] [id number] [address] [place] [address], [place] [address] Jul, [facility] [address] [id number] [address] [place] [address], [place] [address] Jul, [facility] [address] [id number] [address] [place] [address], [place] [address] Jul, [facility] [address] [id number] [address] [place] [address], [place] [address] Jul, [facility] [address] [id number] [address] [place] [address], [place] [address] Jun, [facility] [address] [id number] [address] [place] [address], [place] [address] Jun, [facility] [address] [id number] [address] [place] [address], [place] [address] Jun, [facility] [address] [id number] [address] [place] [address], [place] [address] Jun, [facility] [address] [id number] [address] [place] [address], [place] [address] Jun, [facility] [address] [id number] [address] [place] [address], [place] [address] Jun, [facility] [address] [id number] [address] [place] [address], [place] [address] Jun, [facility] [address] [id number] [address] [place] [address], [place] [address] Jun, [facility] [address] [id number] [address] [place] [address], [place] [address] Jun, [facility] [address] [id number] [address] [place] [address], [place] [address] Jun, [facility] [address] [id number] [address] [place] [address], [place] [address] Jun, [facility] [address] [id number] [address] [place] [address], [place] [address] Jun, [facility] [address] [id number] [address] [place] [address], [place] [address] Jun, [facility] [address] [id number] [address] [place] [address], [place] [address] Jun, [facility] [address] [id number] [address] [place] [address], [place] [address] 20 Jun, 2013 [facility] [address] [id number] [address] [place] [address], [place] [address] 18 Jun, 2013 [facility] [address] [id number] [address] [place] [address], [place] [address] 18 Jun, 2013 [facility] [address] [id number] [address] [place] [address], [place] [address] 17 Jun, 2013 [facility] [address] [id number] [address] [place] [address], [place] [address] 17 Jun, 2013 [facility] [address] [id number] [address] [place] [address], [place] [address] 13 Jun, 2013 [facility] [address] [id number] [address] [place] [address], [place] [address] 12 Jun, 2013 [facility] [address] [id number] [address] [place] [address], [place] [address] 12 Jun, 2013 [facility] [address] [id number] [address] [place] [address], [place] [address] 09 Jun, 2013 [facility] [address] [id number] [address] [place] [address], [place] [address] 05 Jun, 2013 [facility] [address] [id number] [address] [place] [address], [place] [address] 05 Jun, 2013 [facility] [address] [id number] [address] [place] [address], [place] [address] 04 Jun, 2013 [facility] [address] [id number] [address] [place] [address], [place] [address] 04 Jun, 2013 [facility] [address] [id number] [address] [place] [address], [place] [address] 17 May, 2013 [facility] [address] [id number] [address] [place] [address], [place] [address] 17 May, 2013 [facility] [address] [id number] [address] [place] [address], [place] [address] May, [facility] [address] [id number] [address] [place] [address], [place] [address] May, [facility] [address] [id number] [address] [place] [address], [place] [address] May, [facility] [address] [id number] [address] [place] [address], [place] [address] May, [facility] [address] [id number] [address] [place] [address], [place] [address] Apr, [facility] [address] [id number] [address] [place] [address], [place] [address] Apr, [facility] [address] [id number] [address] [place] [address], [place] [address] Apr, [facility] [address] [id number] [address] [place] [address], [place] [address] Apr, [facility] [address] [id number] [address] [place] [address], [place] [address] Apr, [facility] [address] [id number] [address] [place] [address], [place] [address] Apr, [facility] [address] [id number] [address] [place] [address], [place] [address] Apr, [facility] [address] [id number] [address] [place] [address], [place] [address] Apr, [facility] [address] [id number] [address] [place] [address], [place] [address] 26 Mar, 2013 [facility] [address] [id number] [address] [place] [address] [address] 24 Sep2012 [facility] [address] [id number] [address] [place] [address], [place] [address] 17 Mar, 2013 [facility] [address] [id number] [address] [place] [address], [place] [address] 17 Mar, 2013 [facility] [address] [id number] [address] [place] [address] [place] [address] 11 Mar, 2013 [facility] [address] [id number] [address] [place] [address], [place] [address] 10 Mar, 2013 [facility] [address] [id number] [address] [place] [address], [place] [address] 05 Mar, 2013 [facility] [address] [id number] [address] [place] [address], [place] [address] 04 Mar, 2013 [facility] [address] [id number] [address] [place] [address], [place] [address] 20 Jan, 2013 [facility] [address] [id number] [address] [place] [address], [place] [address] Jan, [facility] [address] [id number] [address] [place] [address], [place] [address] 14 Jan, 2013 [facility] [address] [id number] [address] [place] [address], [place] [address] Jan, [facility] [address] [id number] [address] [place] [address], [place] [address] Jan, [facility] [address] [id number] [address] [place] [address], [place] [address] Jan, [facility] [address] [id number] [address] [place] [address], [place] [address] Dec, [facility] [address] [id number] [address] [place] [address], [place] [address] Dec, [facility] [address] [id number] [address] [place] [address], [place] [address] Dec, [facility] [address] [id number] [address] [place] [address], [place] [address] Dec, [facility] [address] [id number] [address] [place] [address], [place] [address] Dec, [facility] [address] [id number] [address] [place] [address], [place] [address] 17 Dec, 2012 [facility] [address] [id number] [address] [place] [address], [place] [address] 16 Dec, 2012 [facility] [address] [id number] [address] [place] [address], [place] [address] 16 Dec, 2012 [facility] [address] [id number] [address] [place] [address], [place] [address] 15 Dec, 2012 [facility] [address] [id number] [address] [place] [address], [place] [address] 10 Dec, 2012 [facility] [address] [id number] [address] [place] [address], [place] [address] 28 Dec, 2012 [facility] [address] [id number] [address] [place] [address], [place] [address] Dec, [facility] [address] [id number] [address] [place] [address], [place] [address] Dec, [facility] [address] [id number] [address] [place] [address], [place] [address] Dec, [facility] [address] [id number] [address] [place] [address], [place] [address] Dec, [facility] [address] [id number] [address] [place] [address], [place] [address] Dec, [facility] [address] [id number] [address] [place] [address], [place] [address] October, [facility] [address] [id number] [address] [place] [address], [place] [address] October, [facility] [address] [id number] [address] [place] [address], [place] [address] October, [facility] [address] [id number] [address] [place] [address], [place] [address] October, [facility] [address] [id number] [address] [place] [address], [place] [address] October, [facility] [address] [id number] [address] [place] [address], [place] [address] October, [facility] [address] [id number] [address] [place] [address], [place] [address] October, [facility] [address] [id number] [address] [place] [address], [place] [address] Oct, [facility] [address] [id number] [address] [place] [address], [place] [address] Oct, [facility] [address] [id number] [address] [place] [address], [place] [address] Oct, [facility] [address] [id number] [address] [place] [address], [place] [address] Oct, [facility] [address] [id number] [address] [place] [address], [place] [address] Oct, [facility] [address] [id number] [address] [place] [address], [place] [address] Oct, [facility] [address] [id number] [address] [place] [address], [place] [address] Oct, [facility] [address] [id number] [address] [place] [address], [place] [address] 15 Oct, 2012 [facility] [address] [id number] [address] [place] [address], [place] [address] Oct, [facility] [address] [id number] [address] [place] [address], [place] [address] Oct, [facility] [address] [id number] [address] [place] [address], [place] [address] Oct, [facility] [address] [id number] [address] [place] [address], [place] [address] Oct, [facility] [address] [id number] [address] [place] [address], [place] [address] Aug, [facility] [address] [id number] [address] [place] [address], [place] [address] Aug, [facility] [address] [id number] [address] [place] [address], [place] [address] 12 Aug, 2012 [facility] [address] [id number] [address] [place] [address], [place] [id number] 06 Aug, 2012 [facility] [address] [id number] [address] [place] [address], [place] [address] 05 Aug, 2012 [facility] [address] [id number] [address] [place] [address], [place] [address] 05 Aug, 2012 [facility] [address] [id number] [address] [place] [address], [place] [address] 20 Aug, 2012 [facility] [address] [id number] [address] [place] [address], [place] [address] 14 Aug, 2012 [facility] [address] [id number] [address] [place] [address], [place] [address] 12 Aug, 2012 [facility] [address] [id number] [address] [place] [address], [place] [address] Aug, [facility] [address] [id number] [address] [place] [address], [place] [address] Jul, [facility] [address] [id number] [address] [place] [address], [place] [address] Jul, [facility] [address] [id number] [address] [place] [address], [place] [address] Jul, [facility] [address] [id number] [address] [place] [address], [place] [address] Jun, [facility] [address] [id number] [address] [place] [address], [place] [address] Jun, [facility] [address] [id number] [address] [place] [address], [place] [address] Jun, [facility] [address] [id number] [address] [place] [address], [place] [address] Jun, [facility] [address] [id number] [address] [place] [address], [place] [address] Jun, [facility] [address] [id number] [address] [place] [address], [place] [address] 14 Jun, 2012 [facility] [address] [id number] [address] [place] [address], [place] [address] 14 Jun, 2012 [facility] [address] [id number] [address] [place] [address], [place] [address] 13 Jun, 2012 [facility] [address] [id number] [address] [place] [address], [place] [address] 13 Jun, 2012 [facility] [address] [id number] [address] [place] [address], [place] [address] 11 Jun, 2012 [facility] [address] [id number] [address] [place] [address], [place] [address] 11 Jun, 2012 [facility] [address] [id number] [address] [place] [address], [place] [address] 11 Jun, 2012 [facility] [address] [id number] [address] [place] [address], [place] [address] 11 Jun, 2012 [facility] [address] [id number] [address] [place] [address], [place] [address] 07 Jun, 2012 [facility] [address] [id number] [address] [place] [address], [place] [address] 07 Jun, 2012 [facility] [address] [id number] [address] [place] [address], [place] [address] 06 Jun, 2012 [facility] [address] [id number] [address] [place] [address], [place] [address] 06 Jun, 2012 [facility] [address] [id number] [address] [place] [address], [place] [address] Jun, [facility] [address] [id number] [address] [place] [address], [place] [address] 06 Jun, 2012 [facility] [address] [id number] [address] [place] [address], [place] [address] 05 Jun, 2012 [facility] [address] [id number] [address] [place] [address], [place] [address] Jun, [facility] [address] [id number] [address] [place] [address], [place] [address] Jun, [facility] [address] [id number] [address] [place] [address], [place] [address] Jun, [facility] [address] [id number] [address] [place] [address], [place] [address] May, [facility] [address] [id number] [address] [place] [address], [place] [address] May, [facility] [address] [id number] [address] [place] [address], [place] [address] May, [facility] [address] [id number] [address] [place] [address], [place] [address] May, [facility] [address] [id number] [address] [place] [address], [place] [address] May, [facility] [address] [id number] [address] [place] [address], [place] [address] May, [facility] [address] [id number] [address] [place] [address], [place] [address] May, [facility] [address] [id number] [address] [place] [address], [place] [address] May, [facility] [address] [id number] [address] [place] [address], [place] [address] Apr, [facility] [address] [id number] [address] [place] [address] Apr, [facility] [address] [id number] [address] [place] [address], [place] [address] Apr, [facility] [address] [id number] [address] [place] [address], [place] [address] Apr, [facility] [address] [id number] [address] [place] [address] Apr, [facility] [address] [id number] [address] [place] [address], [place] [address] Apr, [facility] [address] [id number] [address] [place] [address], [place] [address] Apr, [facility] [address] [id number] [address] [place] [address], [place] [address] Apr, [facility] [address] [id number] [address] [place] [address], [place] [address] Apr, [facility] [address] [id number] [address] [place] [address], [place] [address] Apr, [facility] [address] [id number] [address] [place] [address], [place] [address] Apr, [facility] [address] [id number] [address] [place] [address], [place] [address] Apr, [facility] [address] [id number] [address] [place] [address], [place] [address] Mar, [facility] [address] [id number] [address] [place] [address], [place] [address] 18 Mar, 2012 [facility] [address] [id number] [address] [place] [address] Mar, [facility] [address] [id number] [address] [place] [address] Mar, [facility] [address] [id number] [address] [place] [id number] Mar, [facility] [address] [id number] [address] [place] [id number] Mar, [facility] [address] [id number] [address] [place] [address], [place] [address] Mar, [facility] [address] [id number] [address] [place] [address], [place] [address] Jan, [facility] [address] [id number] [address] [place] [id number] Jan, [facility] [address] [id number] [facility] [id number] Jan, [facility] [address] [id number] [address] [id number] Jan, [facility] [address] [id number] [address] [place] [address], [place] [address] Jan, [facility] [address] [id number] [address] [place] [address], [place] [address] Jan, [facility] [address] [id number] [address] [place] [address], [place] [address] Jan, [facility] [address] [id number] [address] [place] [address], [place] [address] Jan, [facility] [address] [id number] [address] [place] [address], [place] [address] Jan, [facility] [address] [id number] [address] [place] [address], [place] [address] Jan, [facility] [address] [id number] [address] [place] [address], [place] [address] Jan, [facility] [address] [id number] [address] [place] [address], [place] [address] Dec, [facility] [address] [id number] [address] [place] [address], [place] [address] Dec, [facility] [address] [id number] [address] [place] [address], [place] [address] Dec, [facility] [address] [id number] [address] [place] [address], [place] [address] Dec, [facility] [address] [id number] [address] [place] [address], [place] [address] Dec, [facility] [address] [id number] [address] [place] [address], [place] [address] Dec, [facility] [address] [id number] [address] [place] [address] [place] [address] 18 Jan, 2012 [facility] [address] [id number] [address] [place] [address], [place] [address] 17 Jan, 2012 [facility] [address] [id number] [address] [place] [address], [place] [address] 16 Jan, 2012 [facility] [address] [id number] [address] [place] [address], [place] [address] 13 Jan, 2012 [facility] [address] [id number] [address] [place] [address], [place] [address] 13 Jan, 2012 [facility] [address] [id number] [address] [place] [address], [place] [address] 02 Jan, 2012 [facility] [address] [id number] [address] [place] [address], [place] [address] Dec, [facility] [address] [id number] [address] [place] [address], [place] [address] Dec, [facility] [address] [id number] [address] [place] [address], [place] [address] Dec, [facility] [address] [id number] [address] [place] [address], [place] [address] Dec, [facility] [address] [id number] [address] [place] [address], [place] [address] 15 Dec, 2011 [facility] [address] [id number] [address] [place] [address], [place] [address] Dec, [facility] [address] [id number] [address] [place] [address], [place] [address] Dec, [facility] [address] [id number] [address] [place] [address], [place] [address] October, [facility] [address] [id number] [address] [place] [address], [place] [address] October, [facility] [address] [id number] [address] [place] [address], [place] [address] October, [facility] [address] [id number] [address] [place] [address], [place] [address] October, [facility] [address] [id number] [address] [place] [address], [place] [address] October, [facility] [address] [id number] [address] [place] [address], [place] [address] October, [facility] [address] [id number] [address] [place] [address], [place] [address] Oct, [facility] [address] [id number] [address] [place] [address], [place] [address] 24 Oct, 2011 [facility] [address] [id number] [address] [place] [address], [place] [address] Oct, [facility] [address] [id number] [address] [place] [address], [place] [address] Oct, [facility] [address] [id number] [address] [place] [address], [place] [address] Oct, [facility] [address] [id number] [address] [place] [address], [place] [address] Oct, [facility] [address] [id number] [address] [place] [address], [place] [address] Oct, [facility] [address] [id number] [address] [place] [address], [place] [address] Aug, [facility] [address] [id number] [address] [place] [address], [place] [address] 29 Sep, 2011 [facility] [address] [id number] [address] [place] [address], [place] [address] 19 Sep, 2011 [facility] [address] [id number] [address] [place] [address], [place] [address] 13 Sep, 2011 [facility] [address] [id number] [address] [place] [address], [place] [address] 05 Sep, 2011 [facility] [address] [id number] [address] [place] [address], [place] [address] Aug, [facility] [address] [id number] [address] [place] [address], [place] [address] Aug, [facility] [address] [id number] [address] [place] [address], [place] [address] Aug, [facility] [address] [id number] [address] [place] [address], [place] [address] Aug, [facility] [address] [id number] [address] [place] [address], [place] [address] Jul, [facility] [address] [id number] [address] [place] [address], [place] [address] Jul, [facility] [address] [id number] [address] [place] [address], [place] [address] Jul, [facility] [address] [id number] [address] [place] [address], [place] [address] Jul, [facility] [address] [id number] [address] [place] [address], [place] [address] Jun, [facility] [address] [id number] [address] [place] [address], [place] [address] Jun, [facility] [address] [id number] [address] [place] [address], [place] [address] May, [facility] [address] [id number] [address] [place] [address], [place] [address] May, [facility] [address] [id number] [address] [place] [address], [place] [address] May, [facility] [address] [id number] [address] [place] [address], [place] [address] May, [facility] [address] [id number] [address] [place] [address], [place] [address] 07 May, 2011 [facility] [address] [id number] [address] [place] [address], [place] [address] Apr, [facility] [address] [id number] [address] [place] [address] Apr, [facility] [place] [address] [id number] [address] [place] [address] Apr, [facility] [place] [address] [id number] [address] [place] [address] Jan, [facility] [place] [address] [id number] [address] [place] [address] Dec, [facility] [place] [address] [id number] [address] [place] [address] October, [facility] [place] [address] [id number] [address] [place] [address] Jun, [facility] [place] [address] [id number] [address] [place] [address] Apr, [facility] [place] [address] [id number] [address] [place] [address] Apr, [facility] [place] [address] [id number] [address] [place] [address] Apr, [facility] [place] [address] [id number] [address] [place] [address] Jun, IMMUNIZATIONS No Known Immunizations SOCIAL HISTORY Never Assessed REASON FOR VISIT [facility] PLAN OF CARE VITAL SIGNS MEDICATIONS Unknown Medications RESULTS No Results PROCEDURES No Known procedures INSTRUCTIONS MEDICATIONS ADMINISTERED No Known Medications MEDICAL (GENERAL) HISTORY Type Description Date Medical History Psychiatric disorder Medical History Hard of hearing Surgical History Neofibrous tumor Surgical History back injection Hospitalization History Intestinal blockage Hospitalization History past psychiatric hospitalizations x2
--- OUTSIDE RECORDS SUMMARY | 2020-01-25 13:02 | XMS REPORT ---
Author Author Ana Mayer Doctor Organization [facility] Address Unknown Phone Unavailable Care Team Providers Care Manager [employer] Name Role Phone Migration, Doctor Unavailable Unavailable PROBLEMS Type Condition ICD9-CM Code [id number] Code Onset Dates Condition S tatus SNOMED Code Problem Attention deficit R41.840 Active 76 106321 Problem Chronic hepatitis C without hepatic coma B18.2 Active 187339917 Problem Cannabis abuse F12.10 Active 96870 009 Problem Bipolar disorder, in partial remission, most rec ent episode hypomanic F31.71 Active 016290382 Problem Attention deficit hyperactivity disorder (ADHD), combi luciano type F90.2 Active 61251406 Problem Bipolar 1 disorder F31.9 Active 3 70516279 Problem H/O laminectomy Z98.89 Active 1616 62435 Problem Other chronic pain G89.29 Active 8 1113641 Problem Anxiety disorder, unspecified type F41.9 Active 596317324 ALLERGIES No Information ENCOUNTERS Encounter Location Date Diagnosis [facility] [address] [facility] [id number] [address] [place] [phone] Oct, [facility] [address] [facility] [id number] [address] [place] [phone] Aug, Bipolar disorder, in partial remission, most recent episode hypomanic F31.71 ; Attention deficit hyperactivity disorder (ADHD), combined type F90.2 and Anxiety disorder, unspecified type F41.9 [facility] [address] [facility] [id number] [address] [place] [address] Aug, [facility] [address] [facility] [id number] [address] [place] [address] Aug, Bipolar disorder, in partial remission, most recent episode hypomanic F31.71 [facility] [address] [facility] [id number] [address] [place] [address] Aug, [facility] [address] [id number] [address] [place] [phone] Aug, Bipolar disorder, in partial remission, most recent episode hypomanic F31.71 [facility] [address] [id number] [address] [place] [address] Aug, Bipolar disorder, in partial remission, most recent episode hypomanic F31.71 ; Attention deficit hyperactivity disorder (ADHD), combined type F90.2 and Anxiety disorder, unspecified type F41.9 [facility] [address] [id number] [address] [place] [address] Aug, Low back pain M54.5 and Pain in left wrist M25.532 [facility] [address] [id number] [address] [place] [address] Aug, [facility] [address] [id number] [address] [place] [phone] Jun, [facility] [address] [facility] [id number] [address] [place] [address] Apr, Bipolar disorder, in partial remission, most recent episode hypomanic F31.71 [facility] [address] [id number] [address] [place] [address] Apr, [facility] [address] [id number] [address] [place] [phone] Apr, Bipolar disorder, in partial remission, most recent episode hypomanic F31.71 ; Attention deficit hyperactivity disorder (ADHD), combined type F90.2 ; Anxiety disorder, unspecified type F41.9 and Other detention (current) 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 Z79.899 [facility] [address] [id number] [address] [place] [phone] Apr, Bipolar disorder, in partial remission, most recent episode hypomanic F31.71 [facility] [address] [id number] [address] [place] [address] Apr, Bipolar disorder, in partial remission, most recent episode hypomanic F31.71 [facility] [address] [facility] [id number] [address] [place] [phone] Mar, [facility] [address] [id number] [address] [place] [phone] Mar, Bipolar disorder, in partial remission, most recent episode hypomanic F31.71 ; Encounter for immunization Z23 and Low back pain M54.5 [facility] [address] [id number] [address] [place] [phone] Mar, Bipolar disorder, in partial remission, most recent episode hypomanic F31.71 [facility] [address] [id number] [address] [place] [address] Mar, Bipolar disorder, in partial remission, most recent episode hypomanic F31.71 [facility] [address] [facility] [id number] [address] [place] [phone] Jan, Bipolar disorder, in partial remission, most recent episode hypomanic F31.71 [facility] [address] [facility] [id number] [address] [place] [phone] Jan, Bipolar disorder, in partial remission, most recent episode hypomanic F31.71 [facility] [address] [facility] [id number] [address] [place] [address] Dec, Bipolar disorder, in partial remission, most recent episode hypomanic F31.71 [facility] [address] [facility] [id number] [address] [place] [address] Dec, Bipolar disorder, in partial remission, most recent episode hypomanic F31.71 ; Attention deficit hyperactivity disorder (ADHD), combined type F90.2 ; Anxiety disorder, unspecified type F41.9 and Other detention (current) 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 Z79.899 [facility] [address] [facility] [id number] [address] [place] [address] Dec, Bipolar disorder, in partial remission, most recent episode hypomanic F31.71 [facility] [address] [facility] [id number] [address] [place] [address] Dec, Bipolar disorder, in partial remission, most recent episode hypomanic F31.71 [facility] [address] [id number] [address] [place] [phone] October, Bipolar disorder, in partial remission, most recent episode hypomanic F31.71 [facility] [address] [id number] [address] [place] [phone] October, [facility] [address] [id number] [address] [place] [address] October, [facility] [address] [id number] [address] [place] [address] Oct, Bipolar disorder, in partial remission, most recent episode hypomanic F31.71 ; Attention deficit hyperactivity disorder (ADHD), combined type F90.2 ; Anxiety disorder, unspecified type F41.9 and Encounter for drug screening Z02.83 [facility] [address] [id number] [address] [place] [phone] Oct, Bipolar disorder, in partial remission, most recent episode hypomanic F31.71 [facility] [address] [id number] [address] [place] [phone] Oct, Bipolar disorder, in partial remission, most recent episode hypomanic F31.71 [facility] [address] [id number] [address] [place] [address] Aug, Bipolar disorder, in partial remission, most recent episode hypomanic F31.71 [facility] [address] [id number] [address] [place] [phone] Aug, Bipolar disorder, in partial remission, most recent episode hypomanic F31.71 [facility] [address] [id number] [address] [place] [address] Aug, Bipolar disorder, in partial remission, most recent episode hypomanic F31.71 [facility] [address] [id number] [address] [place] [id number] Jul, Bipolar disorder, in partial remission, most recent episode hypomanic F31.71 ; Attention deficit hyperactivity disorder (ADHD), combined type F90.2 and Anxiety disorder, unspecified type F41.9 [facility] [address] [id number] [address] [place] [phone] Jul, Bipolar disorder, in partial remission, most recent episode hypomanic F31.71 [facility] [address] [id number] [address] [place] [phone] Jun, Bipolar disorder, in partial remission, most recent episode hypomanic F31.71 [facility] [address] [id number] [address] [place] [phone] May, Bipolar disorder, in partial remission, most recent episode hypomanic F31.71 [facility] [address] [facility] [id number] [address] [place] [address] May, Bipolar disorder, in partial remission, most recent episode hypomanic F31.71 [facility] [address] [facility] [id number] [address] [place] [phone] Apr, [facility] [address] [id number] [address] [place] [address] Apr, Bipolar disorder, in partial remission, most recent episode hypomanic F31.71 ; Attention deficit hyperactivity disorder (ADHD), combined type F90.2 ; Anxiety disorder, unspecified type F41.9 and Cannabis abuse F12.10 [facility] [address] [id number] [address] [place] [phone] Apr, Attention deficit hyperactiv ity disorder (ADHD), combined type F90.2 [facility] [address] [id number] [address] [place] [phone] Mar, Attention deficit hyperactiv ity disorder (ADHD), combined type F90.2 [facility] [address] [facility] [id number] [address] [place] [address] Mar, Anxiety disorder, unspecifie d type F41.9 [facility] [address] [facility] [id number] [address] [place] [phone] Jan, Attention deficit hyperactiv ity disorder (ADHD), combined type F90.2 [facility] [address] [facility] [id number] [address] [place] [phone] Jan, Anxiety disorder, unspecifie d type F41.9 [facility] [address] [facility] [id number] [address] [place] [address] Jan, Other chronic pain G89.29 ; Chronic hepatitis C without hepatic coma B18.2 and Bipolar 1 disorder F31.9 [facility] [address] [facility] [id number] [address] [place] [phone] Dec, Attention deficit hyperactiv ity disorder (ADHD), combined type F90.2 [facility] [address] [facility] [id number] [address] [place] [address] Dec, Bipolar disorder, in partial remission, most recent episode hypomanic F31.71 ; Attention deficit hyperactivity disorder (ADHD), combined type F90.2 and Anxiety disorder, unspecified type F41.9 [facility] [address] [facility] [id number] [address] [place] [phone] Dec, Bipolar disorder, in partial remission, most recent episode hypomanic F31.71 ; Attention deficit hyperactivity disorder (ADHD), combined type F90.2 and Anxiety disorder, unspecified type F41.9 [facility] [address] [facility] [id number] [address] [place] [phone] Dec, Bipolar 1 disorder F31.9 and Attention deficit R41.840 [facility] [address] [facility] [id number] [address] [place] [phone] Oct, Other chronic pain G89.29 ; Alopecia L65.9 and Screening, lipid Z13.220 [facility] [address] [facility] [id number] [address] [place] [address] Oct, [place] [address] [facility] [id number] [address] [place] [phone] Aug, [facility] [address] [facility] [id number] [address] [place] [phone] Aug, Eustachian tube dysfunction, right H69.81 ; Vertigo R42 and Other chronic pain G89.29 [facility] [address] [id number] [address] [place] [address] Aug, [facility] [address] [id number] [address] [place] [phone] Jun, [facility] [address] [id number] [address] [place] [address] Jun, Low back pain M54.5 and Othe r chronic pain G89.29 [facility] [address] [id number] [address] [place] [phone] Jun, [facility] [address] [id number] [address] [place] [phone] May, [facility] [address] [id number] [address] [place] [phone] Jan, [facility] [address] [id number] [address] [place] [phone] Dec, [facility] [address] [id number] [address] [place] [phone] Dec, [facility] [address] [id number] [address] [place] [phone] Jun, [facility] [address] [id number] [address] [place] [address] Apr, Eustachian tube dysfunction, unspecified laterality H69.80 ; Hot flashes N95.1 and Encounter for immunization Z23 [facility] [address] [id number] [address] [place] [phone] Jan, [facility] [address] [id number] [address] [place] [phone] Jan, [facility] [address] [id number] [address] [place] [phone] Jan, [facility] [address] [id number] [address] [place] [phone] Jan, [facility] [address] [id number] [address] [place] [phone] Jan, Encounter to establish care V65.8 ; Bipolar 1 disorder 296.7 ; Abdominal pain 789.00 ; Constipation 564.00 ; Hard of hearing 389.9 and Drug abuse 305.90 [facility] [address] [id number] [address] [place] [phone] Dec, [facility] [address] [id number] [address] [place] [address] October, [facility] [address] [id number] [address] [place] [phone] October, [facility] [address] [id number] [address] [place] [phone] Oct, [facility] [address] [id number] [address] [place] [phone] Oct, [facility] [address] [id number] [address] [place] [address] Oct, [facility] [address] [id number] [address] [place] [phone] Aug, [facility] [address] [id number] [address] [place] [phone] Aug, [facility] [address] [id number] [address] [place] [phone] Aug, [facility] [address] [id number] [address] [place] [phone] Aug, [facility] [address] [id number] [address] [place] [phone] Aug, [facility] [address] [id number] [address] [place] [phone] Aug, [facility] [address] [id number] [address] [place] [address], [place] [address] Aug, 2014 [facility] [address] [id number] [address] [place] [address], [place] [address] Aug, 2014 [facility] [address] [id number] [address] [place] [address], [place] [address] Aug, 2014 [facility] [address] [id number] [address] [place] [address], [place] [address] Aug, 2014 [facility] [address] [id number] [address] [place] [address], [place] [address] Aug, 2014 [facility] [address] [id number] [address] [place] [address], [place] [address] Aug, 2014 [facility] [address] [id number] [address] [place] [address], [place] [address] Aug, 2014 [facility] [address] [id number] [address] [place] [address], [place] [address] Aug, 2014 [facility] [address] [id number] [address] [place] [address], [place] [address] Aug, [facility] [address] [id number] [address] [place] [address], [place] [address] Jul, [facility] [address] [id number] [address] [place] [address], [place] [address] Jul, [facility] [address] [id number] [address] [place] [address], [place] [address] Jul, [facility] [address] [id number] [address] [place] [address], [place] [address] Jul, [facility] [address] [id number] [address] [place] [address], [place] [address] Jul, [facility] [address] [id number] [address] [place] [address], [place] [address] Jul, [facility] [address] [id number] [address] [place] [address], [place] [address] Jul, [facility] [address] [id number] [address] [place] [address], [place] [address] Jul, [facility] [address] [id number] [address] [place] [address], [place] [address] Jun, [facility] [address] [id number] [address] [place] [address], [place] [address] Jun, [facility] [address] [id number] [address] [place] [address], [place] [address] Jun, [facility] [address] [id number] [address] [place] [address], [place] [address] Jun, [facility] [address] [id number] [address] [place] [address], [place] [address] Jun, [facility] [address] [id number] [address] [place] [address], [place] [address] Jun, [facility] [address] [id number] [address] [place] [address], [place] [address] Jun, [facility] [address] [id number] [address] [place] [address], [place] [address] Jun, [facility] [address] [id number] [address] [place] [address], [place] [address] Jun, [facility] [address] [id number] [address] [place] [address], [place] [address] Jun, [facility] [address] [id number] [address] [place] [address], [place] [address] Jun, [facility] [address] [id number] [address] [place] [address], [place] [address] May, [facility] [address] [id number] [address] [place] [address], [place] [address] May, [facility] [address] [id number] [address] [place] [address], [place] [address] May, [facility] [address] [id number] [address] [place] [address], [place] [address] May, [facility] [address] [id number] [address] [place] [address], [place] [address] May, [facility] [address] [id number] [address] [place] [address], [place] [address] May, [facility] [address] [id number] [address] [place] [address], [place] [address] May, [facility] [address] [id number] [address] [place] [address], [place] [address] Apr, [facility] [address] [id number] [address] [place] [address], [place] [address] Apr, [facility] [address] [id number] [address] [place] [address], [place] [address] Apr, [facility] [address] [id number] [address] [place] [address], [place] [address] Apr, [facility] [address] [id number] [address] [place] [address], [place] [address] Apr, [facility] [address] [id number] [address] [place] [address], [place] [address] Apr, [facility] [address] [id number] [address] [place] [address], [place] [address] Mar, [facility] [address] [id number] [address] [place] [address], [place] [address] 29 Mar, 2013 [facility] [address] [id number] [address] [place] [address], [place] [address] 10 Mar, 2013 [facility] [address] [id number] [address] [place] [address], [place] [address] 10 Mar, 2013 [facility] [address] [id number] [address] [place] [address], [place] [address] Mar, 2013 [facility] [address] [id number] [address] [place] [address], [place] [address] Mar, [facility] [address] [id number] [address] [place] [address], [place] [address] Jan, [facility] [address] [id number] [address] [place] [address], [place] [address] Jan, [facility] [address] [id number] [address] [place] [address], [place] [address] Jan, [facility] [address] [id number] [address] [place] [address], [place] [address] Jan, [facility] [address] [id number] [address] [place] [address], [place] [address] Dec, [facility] [address] [id number] [address] [place] [address], [place] [address] Dec, [facility] [address] [id number] [address] [place] [address], [place] [address] Dec, [facility] [address] [id number] [address] [place] [address], [place] [address] Dec, [facility] [address] [id number] [address] [place] [address], [place] [address] Dec, [facility] [address] [id number] [address] [place] [address], [place] [address] Dec, [facility] [address] [id number] [address] [place] [address], [place] [address] Dec, [facility] [address] [id number] [address] [place] [address], [place] [address] Dec, [facility] [address] [id number] [address] [place] [address], [place] [address] Dec, [facility] [address] [id number] [address] [place] [address], [place] [address] Dec, [facility] [address] [id number] [address] [place] [address], [place] [address] Dec, [facility] [address] [id number] [address] [place] [address], [place] [address] Dec, [facility] [address] [id number] [address] [place] [address], [place] [address] October, [facility] [address] [id number] [address] [place] [address], [place] [address] October, [facility] [address] [id number] [address] [place] [address], [place] [address] October, [facility] [address] [id number] [address] [place] [address], [place] [address] October, [facility] [address] [id number] [address] [place] [address], [place] [address] October, [facility] [address] [id number] [address] [place] [address], [place] [address] October, [facility] [address] [id number] [address] [place] [address], [place] [address] Oct, [facility] [address] [id number] [address] [place] [address], [place] [address] Oct, [facility] [address] [id number] [address] [place] [address], [place] [address] Oct, [facility] [address] [id number] [address] [place] [address], [place] [address] Oct, [facility] [address] [id number] [address] [place] [address], [place] [address] Oct, [facility] [address] [id number] [address] [place] [address], [place] [address] Oct, [facility] [address] [id number] [address] [place] [address], [place] [address] Oct, [facility] [address] [id number] [address] [place] [address], [place] [address] Oct, [facility] [address] [id number] [address] [place] [address], [place] [address] Oct, [facility] [address] [id number] [facility] [place] [address] 09 Oct, 2013 [facility] [address] [id number] [facility] [place] [address] Oct, [facility] [address] [id number] [address] [place] [address], [place] [address] Oct, [facility] [address] [id number] [address] [place] [address], [place] [address] Aug, [facility] [address] [id number] [address] [place] [address], [place] [address] Aug, [facility] [address] [id number] [address] [place] [address], [place] [address] Aug, [facility] [address] [id number] [address] [place] [address], [place] [address] Aug, [facility] [address] [id number] [address] [place] [address], [place] [address] Aug, [facility] [address] [id number] [address] [place] [address], [place] [address] 05 Aug, 2013 [facility] [address] [id number] [address] [place] [address], [place] [address] Aug, [facility] [address] [id number] [address] [place] [address], [place] [address] Aug, [facility] [address] [id number] [address] [place] [address], [place] [address] Aug, [facility] [address] [id number] [address] [place] [address], [place] [address] Aug, [facility] [address] [id number] [address] [place] [address], [place] [address] Aug, [facility] [address] [id number] [address] [place] [address], [place] [address] Aug, [facility] [address] [id number] [address] [place] [address], [place] [address] Aug, [facility] [address] [id number] [address] [place] [address], [place] [address] 20 Aug, 2013 [facility] [address] [id number] [address] [place] [address], [place] [address] 14 Aug, 2013 [facility] [address] [id number] [address] [place] [address], [place] [address] 14 Aug, 2013 [facility] [address] [id number] [address] [place] [address], [place] [address] 14 Aug, 2013 [facility] [address] [id number] [address] [place] [address], [place] [address] 14 Aug, 2013 [facility] [address] [id number] [address] [place] [address], [place] [address] 07 Aug, 2013 [facility] [address] [id number] [address] [place] [address], [place] [address] 07 Aug, 2013 [facility] [address] [id number] [address] [place] [address], [place] [address] 06 Aug, 2013 [facility] [address] [id number] [address] [place] [address], [place] [address] 06 Aug, 2013 [facility] [address] [id number] [address] [place] [address], [place] [address] 04 Aug, 2013 [facility] [address] [id number] [address] [place] [address], [place] [address] 04 Aug, 2013 [facility] [address] [id number] [address] [place] [address], [place] [address] Aug, [facility] [address] [id number] [address] [place] [address], [place] [address] Jul, [facility] [address] [id number] [address] [place] [address], [place] [address] Jul, [facility] [address] [id number] [address] [place] [address], [place] [address] Jul, [facility] [address] [id number] [address] [place] [address], [place] [address] Jul, [facility] [address] [id number] [address] [place] [address], [place] [address] Jul, [facility] [address] [id number] [address] [place] [address], [place] [address] Jul, [facility] [address] [id number] [address] [place] [address], [place] [address] Jul, [facility] [address] [id number] [address] [place] [address], [place] [address] Jul, [facility] [address] [id number] [address] [place] [address], [place] [address] Jul, [facility] [address] [id number] [address] [place] [address], [place] [address] Jul, [facility] [address] [id number] [address] [place] [address], [place] [address] Jul, [facility] [address] [id number] [address] [place] [address], [place] [address] Jul, [facility] [address] [id number] [address] [place] [address], [place] [address] Jul, [facility] [address] [id number] [address] [place] [address], [place] [address] Jul, [facility] [address] [id number] [address] [place] [address], [place] [address] Jul, [facility] [address] [id number] [address] [place] [address], [place] [address] Jul, [facility] [address] [id number] [address] [place] [address], [place] [address] Jul, [facility] [address] [id number] [address] [place] [address], [place] [address] Jul, [facility] [address] [id number] [address] [place] [address], [place] [address] Jul, [facility] [address] [id number] [address] [place] [address], [place] [address] Jul, [facility] [address] [id number] [address] [place] [address], [place] [address] Jun, [facility] [address] [id number] [address] [place] [address], [place] [address] Jun, [facility] [address] [id number] [address] [place] [address], [place] [address] Jun, [facility] [address] [id number] [address] [place] [address], [place] [address] Jun, [facility] [address] [id number] [address] [place] [address], [place] [address] Jun, [facility] [address] [id number] [address] [place] [address], [place] [address] Jun, [facility] [address] [id number] [address] [place] [address], [place] [address] Jun, [facility] [address] [id number] [address] [place] [address], [place] [address] Jun, [facility] [address] [id number] [address] [place] [address], [place] [address] Jun, [facility] [address] [id number] [address] [place] [address], [place] [address] Jun, [facility] [address] [id number] [address] [place] [address], [place] [address] Jun, [facility] [address] [id number] [address] [place] [address], [place] [address] Jun, [facility] [address] [id number] [address] [place] [address], [place] [address] Jun, [facility] [address] [id number] [address] [place] [address], [place] [address] Jun, [facility] [address] [id number] [address] [place] [address], [place] [address] 20 Jun, 2013 [facility] [address] [id number] [address] [place] [address], [place] [address] 18 Jun, 2013 [facility] [address] [id number] [address] [place] [address], [place] [address] 18 Jun, 2013 [facility] [address] [id number] [address] [place] [address], [place] [address] 17 Jun, 2013 [facility] [address] [id number] [address] [place] [address], [place] [address] 17 Jun, 2013 [facility] [address] [id number] [address] [place] [address], [place] [address] 13 Jun, 2013 [facility] [address] [id number] [address] [place] [address], [place] [address] 12 Jun, 2013 [facility] [address] [id number] [address] [place] [address], [place] [address] 12 Jun, 2013 [facility] [address] [id number] [address] [place] [address], [place] [address] 09 Jun, 2013 [facility] [address] [id number] [address] [place] [address], [place] [address] 05 Jun, 2013 [facility] [address] [id number] [address] [place] [address], [place] [address] 05 Jun, 2013 [facility] [address] [id number] [address] [place] [address], [place] [address] 04 Jun, 2013 [facility] [address] [id number] [address] [place] [address], [place] [address] 04 Jun, 2013 [facility] [address] [id number] [address] [place] [address], [place] [address] 17 May, 2013 [facility] [address] [id number] [address] [place] [address], [place] [address] 17 May, 2013 [facility] [address] [id number] [address] [place] [address], [place] [address] May, [facility] [address] [id number] [address] [place] [address], [place] [address] May, [facility] [address] [id number] [address] [place] [address], [place] [address] May, [facility] [address] [id number] [address] [place] [address], [place] [address] May, [facility] [address] [id number] [address] [place] [address], [place] [address] Apr, [facility] [address] [id number] [address] [place] [address], [place] [address] Apr, [facility] [address] [id number] [address] [place] [address], [place] [address] Apr, [facility] [address] [id number] [address] [place] [address], [place] [address] Apr, [facility] [address] [id number] [address] [place] [address], [place] [address] Apr, [facility] [address] [id number] [address] [place] [address], [place] [address] Apr, [facility] [address] [id number] [address] [place] [address], [place] [address] Apr, [facility] [address] [id number] [address] [place] [address], [place] [address] Apr, [facility] [address] [id number] [address] [place] [address], [place] [address] 26 Mar, 2013 [facility] [address] [id number] [address] [place] [address] [address] 24 Sep2012 [facility] [address] [id number] [address] [place] [address], [place] [address] 17 Mar, 2013 [facility] [address] [id number] [address] [place] [address], [place] [address] 17 Mar, 2013 [facility] [address] [id number] [address] [place] [address] [place] [address] 11 Mar, 2013 [facility] [address] [id number] [address] [place] [address], [place] [address] 10 Mar, 2013 [facility] [address] [id number] [address] [place] [address], [place] [address] 05 Mar, 2013 [facility] [address] [id number] [address] [place] [address], [place] [address] 04 Mar, 2013 [facility] [address] [id number] [address] [place] [address], [place] [address] 20 Jan, 2013 [facility] [address] [id number] [address] [place] [address], [place] [address] Jan, [facility] [address] [id number] [address] [place] [address], [place] [address] 14 Jan, 2013 [facility] [address] [id number] [address] [place] [address], [place] [address] Jan, [facility] [address] [id number] [address] [place] [address], [place] [address] Jan, [facility] [address] [id number] [address] [place] [address], [place] [address] Jan, [facility] [address] [id number] [address] [place] [address], [place] [address] Dec, [facility] [address] [id number] [address] [place] [address], [place] [address] Dec, [facility] [address] [id number] [address] [place] [address], [place] [address] Dec, [facility] [address] [id number] [address] [place] [address], [place] [address] Dec, [facility] [address] [id number] [address] [place] [address], [place] [address] Dec, [facility] [address] [id number] [address] [place] [address], [place] [address] 17 Dec, 2012 [facility] [address] [id number] [address] [place] [address], [place] [address] 16 Dec, 2012 [facility] [address] [id number] [address] [place] [address], [place] [address] 16 Dec, 2012 [facility] [address] [id number] [address] [place] [address], [place] [address] 15 Dec, 2012 [facility] [address] [id number] [address] [place] [address], [place] [address] 10 Dec, 2012 [facility] [address] [id number] [address] [place] [address], [place] [address] 28 Dec, 2012 [facility] [address] [id number] [address] [place] [address], [place] [address] Dec, [facility] [address] [id number] [address] [place] [address], [place] [address] Dec, [facility] [address] [id number] [address] [place] [address], [place] [address] Dec, [facility] [address] [id number] [address] [place] [address], [place] [address] Dec, [facility] [address] [id number] [address] [place] [address], [place] [address] Dec, [facility] [address] [id number] [address] [place] [address], [place] [address] October, [facility] [address] [id number] [address] [place] [address], [place] [address] October, [facility] [address] [id number] [address] [place] [address], [place] [address] October, [facility] [address] [id number] [address] [place] [address], [place] [address] October, [facility] [address] [id number] [address] [place] [address], [place] [address] October, [facility] [address] [id number] [address] [place] [address], [place] [address] October, [facility] [address] [id number] [address] [place] [address], [place] [address] October, [facility] [address] [id number] [address] [place] [address], [place] [address] Oct, [facility] [address] [id number] [address] [place] [address], [place] [address] Oct, [facility] [address] [id number] [address] [place] [address], [place] [address] Oct, [facility] [address] [id number] [address] [place] [address], [place] [address] Oct, [facility] [address] [id number] [address] [place] [address], [place] [address] Oct, [facility] [address] [id number] [address] [place] [address], [place] [address] Oct, [facility] [address] [id number] [address] [place] [address], [place] [address] Oct, [facility] [address] [id number] [address] [place] [address], [place] [address] 15 Oct, 2012 [facility] [address] [id number] [address] [place] [address], [place] [address] Oct, [facility] [address] [id number] [address] [place] [address], [place] [address] Oct, [facility] [address] [id number] [address] [place] [address], [place] [address] Oct, [facility] [address] [id number] [address] [place] [address], [place] [address] Oct, [facility] [address] [id number] [address] [place] [address], [place] [address] Aug, [facility] [address] [id number] [address] [place] [address], [place] [address] Aug, [facility] [address] [id number] [address] [place] [address], [place] [address] 12 Aug, 2012 [facility] [address] [id number] [address] [place] [address], [place] [address] 06 Aug, 2012 [facility] [address] [id number] [address] [place] [address], [place] [address] 05 Aug, 2012 [facility] [address] [id number] [address] [place] [address], [place] [address] 05 Aug, 2012 [facility] [address] [id number] [address] [place] [address], [place] [address] 20 Aug, 2012 [facility] [address] [id number] [address] [place] [address], [place] [address] 14 Aug, 2012 [facility] [address] [id number] [address] [place] [address], [place] [address] 12 Aug, 2012 [facility] [address] [id number] [address] [place] [address], [place] [address] Aug, [facility] [address] [id number] [address] [place] [address], [place] [address] Jul, [facility] [address] [id number] [address] [place] [address], [place] [address] Jul, [facility] [address] [id number] [address] [place] [address], [place] [address] Jul, [facility] [address] [id number] [address] [place] [address], [place] [address] Jun, [facility] [address] [id number] [address] [place] [address], [place] [address] Jun, [facility] [address] [id number] [address] [place] [address], [place] [address] Jun, [facility] [address] [id number] [address] [place] [address], [place] [address] Jun, [facility] [address] [id number] [address] [place] [address], [place] [address] Jun, [facility] [address] [id number] [address] [place] [address], [place] [address] 14 Jun, 2012 [facility] [address] [id number] [address] [place] [address], [place] [address] 14 Jun, 2012 [facility] [address] [id number] [address] [place] [address], [place] [address] 13 Jun, 2012 [facility] [address] [id number] [address] [place] [address], [place] [address] 13 Jun, 2012 [facility] [address] [id number] [address] [place] [address], [place] [address] 11 Jun, 2012 [facility] [address] [id number] [address] [place] [address], [place] [address] 11 Jun, 2012 [facility] [address] [id number] [address] [place] [address], [place] [address] 11 Jun, 2012 [facility] [address] [id number] [address] [place] [address], [place] [address] 11 Jun, 2012 [facility] [address] [id number] [address] [place] [address], [place] [address] 07 Jun, 2012 [facility] [address] [id number] [address] [place] [address], [place] [address] 07 Jun, 2012 [facility] [address] [id number] [address] [place] [address], [place] [address] 06 Jun, 2012 [facility] [address] [id number] [address] [place] [address], [place] [address] 06 Jun, 2012 [facility] [address] [id number] [address] [place] [address], [place] [address] Jun, [facility] [address] [id number] [address] [place] [address], [place] [address] 06 Jun, 2012 [facility] [address] [id number] [address] [place] [address], [place] [address] 05 Jun, 2012 [facility] [address] [id number] [address] [place] [address], [place] [address] Jun, [facility] [address] [id number] [address] [place] [address], [place] [address] Jun, [facility] [address] [id number] [address] [place] [address], [place] [address] Jun, [facility] [address] [id number] [address] [place] [address], [place] [address] May, [facility] [address] [id number] [address] [place] [address], [place] [address] May, [facility] [address] [id number] [address] [place] [address], [place] [address] May, [facility] [address] [id number] [address] [place] [address], [place] [address] May, [facility] [address] [id number] [address] [place] [address], [place] [address] May, [facility] [address] [id number] [address] [place] [address], [place] [address] May, [facility] [address] [id number] [address] [place] [address], [place] [address] May, [facility] [address] [id number] [address] [place] [address], [place] [address] May, [facility] [address] [id number] [address] [place] [address], [place] [address] Apr, [facility] [address] [id number] [address] [place] [address] Apr, [facility] [address] [id number] [address] [place] [address], [place] [address] Apr, [facility] [address] [id number] [address] [place] [address], [place] [address] Apr, [facility] [address] [id number] [address] [place] [address] Apr, [facility] [address] [id number] [address] [place] [address], [place] [address] Apr, [facility] [address] [id number] [address] [place] [address], [place] [address] Apr, [facility] [address] [id number] [address] [place] [address], [place] [address] Apr, [facility] [address] [id number] [address] [place] [address], [place] [address] Apr, [facility] [address] [id number] [address] [place] [address], [place] [address] Apr, [facility] [address] [id number] [address] [place] [address], [place] [address] Apr, [facility] [address] [id number] [address] [place] [address], [place] [address] Apr, [facility] [address] [id number] [address] [place] [address], [place] [address] Mar, [facility] [address] [id number] [address] [place] [address], [place] [address] 18 Mar, 2012 [facility] [facility] [address] [id number] [address] [place] [phone] Mar, [facility] [address] [id number] [address] [place] [phone] Mar, [facility] [address] [id number] [address] [place] [id number] Mar, [facility] [address] [id number] [address] [place] [id number] Mar, [facility] [address] [id number] [address] [place] [address], [place] [address] Mar, [facility] [address] [id number] [address] [place] [address], [place] [address] Jan, [facility] [address] [id number] [address] [place] [phone] Jan, [facility] [address] [id number] [facility] [id number] Jan, [facility] [address] [id number] [facility] [id number] Jan, [facility] [address] [id number] [address] [place] [address], [place] [address] Jan, [facility] [address] [id number] [address] [place] [address], [place] [address] Jan, [facility] [address] [id number] [address] [place] [address], [place] [address] Jan, [facility] [address] [id number] [address] [place] [address], [place] [address] Jan, [facility] [address] [id number] [address] [place] [address], [place] [address] Jan, [facility] [address] [id number] [address] [place] [address], [place] [address] Jan, [facility] [address] [id number] [address] [place] [address], [place] [address] Jan, [facility] [address] [id number] [address] [place] [address], [place] [address] Dec, [facility] [address] [id number] [address] [place] [address], [place] [address] Dec, [facility] [address] [id number] [address] [place] [address], [place] [address] Dec, [facility] [address] [id number] [address] [place] [address], [place] [address] Dec, [facility] [address] [id number] [address] [place] [address], [place] [address] Dec, [facility] [address] [id number] [address] [place] [address], [place] [address] Dec, [facility] [address] [id number] [address] [place] [address] [place] [address] 18 Jan, 2012 [facility] [address] [id number] [address] [place] [address], [place] [address] 17 Jan, 2012 [facility] [address] [id number] [address] [place] [address], [place] [address] 16 Jan, 2012 [facility] [address] [id number] [address] [place] [address], [place] [address] 13 Jan, 2012 [facility] [address] [id number] [address] [place] [address], [place] [address] 13 Jan, 2012 [facility] [address] [id number] [address] [place] [address], [place] [address] 02 Jan, 2012 [facility] [address] [id number] [address] [place] [address], [place] [address] Dec, [facility] [address] [id number] [address] [place] [address], [place] [address] Dec, [facility] [address] [id number] [address] [place] [address], [place] [address] Dec, [facility] [address] [id number] [address] [place] [address], [place] [address] Dec, [facility] [address] [id number] [address] [place] [address], [place] [address] 15 Dec, 2011 [facility] [address] [id number] [address] [place] [address], [place] [address] Dec, [facility] [address] [id number] [address] [place] [address], [place] [address] Dec, [facility] [address] [id number] [address] [place] [address], [place] [address] October, [facility] [address] [id number] [address] [place] [address], [place] [address] October, [facility] [address] [id number] [address] [place] [address], [place] [address] October, [facility] [address] [id number] [address] [place] [address], [place] [address] October, [facility] [address] [id number] [address] [place] [address], [place] [address] October, [facility] [address] [id number] [address] [place] [address], [place] [address] October, [facility] [address] [id number] [address] [place] [address], [place] [address] Oct, [facility] [address] [id number] [address] [place] [address], [place] [address] 24 Oct, 2011 [facility] [address] [id number] [address] [place] [address], [place] [address] Oct, [facility] [address] [id number] [address] [place] [address], [place] [address] Oct, [facility] [address] [id number] [address] [place] [address], [place] [address] Oct, [facility] [address] [id number] [address] [place] [address], [place] [address] Oct, [facility] [address] [id number] [address] [place] [address], [place] [address] Oct, [facility] [address] [id number] [address] [place] [address], [place] [address] Aug, [facility] [address] [id number] [address] [place] [address], [place] [address] 29 Sep, 2011 [facility] [address] [id number] [address] [place] [address], [place] [address] 19 Sep, 2011 [facility] [address] [id number] [address] [place] [address], [place] [address] 13 Sep, 2011 [facility] [address] [id number] [address] [place] [address], [place] [address] 05 Sep, 2011 [facility] [address] [id number] [address] [place] [address], [place] [address] Aug, [facility] [address] [id number] [address] [place] [address], [place] [address] Aug, [facility] [address] [id number] [address] [place] [address], [place] [address] Aug, [facility] [address] [id number] [address] [place] [address], [place] [address] Aug, [facility] [address] [id number] [address] [place] [address], [place] [address] Jul, [facility] [address] [id number] [address] [place] [address], [place] [address] Jul, [facility] [address] [id number] [address] [place] [address], [place] [address] Jul, [facility] [address] [id number] [address] [place] [address], [place] [address] Jul, [facility] [address] [id number] [address] [place] [address], [place] [address] Jun, [facility] [address] [id number] [address] [place] [address], [place] [address] Jun, [facility] [address] [id number] [address] [place] [address], [place] [address] May, [facility] [address] [id number] [address] [place] [address], [place] [address] May, [facility] [address] [id number] [address] [place] [address], [place] [address] May, [facility] [address] [id number] [address] [place] [address], [place] [address] May, [facility] [address] [id number] [address] [place] [address], [place] [address] 07 May, 2011 [facility] [address] [id number] [address] [place] [address], [place] [address] Apr, [facility] [address] [id number] [address] [place] [address] Apr, [facility] [address] [id number] [address] [place] [address] Apr, [facility] [address] [id number] [address] [place] [address] Jan, [facility] [address] [id number] [address] [place] [address] Dec, [facility] [address] [id number] [address] [place] [address] October, [facility] [address] [id number] [address] [place] [phone] Jun, [facility] [address] [id number] [address] [place] [address] Apr, [facility] [address] [id number] [address] [place] [phone] Apr, [facility] [address] [id number] [address] [place] [phone] Apr, [facility] [address] [id number] [address] [place] [phone] Jun, IMMUNIZATIONS No Known Immunizations SOCIAL HISTORY Never Assessed REASON FOR VISIT [facility] [place] PLAN OF CARE [...]
--- OUTSIDE RECORDS SUMMARY | 2020-01-25 13:03 | XMS REPORT ---
Author Author Ana Mayer Doctor Organization [facility] Address Unknown Phone Unavailable Care Team Providers Care Procurement Coordinator Name Role Phone Migration, Doctor Unavailable Unavailable PROBLEMS Type Condition ICD9-CM Code [id number] Code Onset Dates Condition S tatus SNOMED Code Problem Attention deficit R41.840 Active 76 640074 Problem Chronic hepatitis C without hepatic coma B18.2 Active 694722911 Problem Cannabis abuse F12.10 Active 32930 009 Problem Bipolar disorder, in partial remission, most rec ent episode hypomanic F31.71 Active 143229524 Problem Attention deficit hyperactivity disorder (ADHD), combi luciano type F90.2 Active 23539989 Problem Bipolar 1 disorder F31.9 Active 3 37309609 Problem H/O laminectomy Z98.89 Active 1616 55380 Problem Other chronic pain G89.29 Active 8 2216170 Problem Anxiety disorder, unspecified type F41.9 Active 203277949 ALLERGIES No Information ENCOUNTERS Encounter Location Date Diagnosis [facility] [address] [facility] [id number] [address] [place] [address] Oct, [facility] [address] [facility] [id number] [address] [place] [phone] Aug, Bipolar disorder, in partial remission, most recent episode hypomanic F31.71 ; Attention deficit hyperactivity disorder (ADHD), combined type F90.2 and Anxiety disorder, unspecified type F41.9 [facility] [address] [facility] [id number] [address] [place] [address] Aug, [facility] [address] [facility] [id number] [address] [place] [phone] Aug, Bipolar disorder, in partial remission, most recent episode hypomanic F31.71 [facility] [address] [facility] [id number] [address] [place] [address] Aug, [facility] [address] [id number] [address] [place] [address] Aug, Bipolar disorder, in partial remission, most recent episode hypomanic F31.71 [facility] [address] [id number] [address] [place] [address] Aug, Bipolar disorder, in partial remission, most recent episode hypomanic F31.71 ; Attention deficit hyperactivity disorder (ADHD), combined type F90.2 and Anxiety disorder, unspecified type F41.9 [facility] [address] [id number] [address] [place] [address] Aug, Low back pain M54.5 and Pain in left wrist M25.532 [facility] [address] [id number] [address] [place] [address] Aug, [facility] [address] [id number] [address] [place] [address] Jun, [facility] [address] [facility] [id number] [address] [place] [address] Apr, Bipolar disorder, in partial remission, most recent episode hypomanic F31.71 [facility] [address] [id number] [address] [place] [address] Apr, [facility] [address] [id number] [address] [place] [address] Apr, Bipolar disorder, in partial remission, most recent episode hypomanic F31.71 ; Attention deficit hyperactivity disorder (ADHD), combined type F90.2 ; Anxiety disorder, unspecified type F41.9 and Other skilled nursing (current) 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 Z79.899 [facility] [address] [id number] [address] [place] [address] Apr, Bipolar disorder, in partial remission, most recent episode hypomanic F31.71 [facility] [address] [id number] [address] [place] [address] Apr, Bipolar disorder, in partial remission, most recent episode hypomanic F31.71 [facility] [address] [facility] [id number] [address] [place] [address] Mar, [facility] [address] [id number] [address] [place] [address] Mar, Bipolar disorder, in partial remission, most recent episode hypomanic F31.71 ; Encounter for immunization Z23 and Low back pain M54.5 [facility] [address] [id number] [address] [place] [address] Mar, Bipolar disorder, in partial remission, most recent episode hypomanic F31.71 [facility] [address] [id number] [address] [place] [address] Mar, Bipolar disorder, in partial remission, most recent episode hypomanic F31.71 [facility] [address] [facility] [id number] [address] [place] [phone] Jan, Bipolar disorder, in partial remission, most recent episode hypomanic F31.71 [facility] [address] [facility] [id number] [address] [place] [address] Jan, Bipolar disorder, in partial remission, most recent episode hypomanic F31.71 [facility] [address] [facility] [id number] [address] [place] [address] Dec, Bipolar disorder, in partial remission, most recent episode hypomanic F31.71 [facility] [address] [facility] [id number] [address] [place] [address] Dec, Bipolar disorder, in partial remission, most recent episode hypomanic F31.71 ; Attention deficit hyperactivity disorder (ADHD), combined type F90.2 ; Anxiety disorder, unspecified type F41.9 and Other skilled nursing (current) 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 Z79.899 [facility] [address] [facility] [id number] [address] [place] [address] Dec, Bipolar disorder, in partial remission, most recent episode hypomanic F31.71 [facility] [address] [facility] [id number] [address] [place] [address] Dec, Bipolar disorder, in partial remission, most recent episode hypomanic F31.71 [facility] [address] [id number] [address] [place] [address] October, Bipolar disorder, in partial remission, most recent episode hypomanic F31.71 [facility] [address] [id number] [address] [place] [address] October, [facility] [address] [id number] [address] [place] [address] October, [facility] [address] [id number] [address] [place] [address] Oct, Bipolar disorder, in partial remission, most recent episode hypomanic F31.71 ; Attention deficit hyperactivity disorder (ADHD), combined type F90.2 ; Anxiety disorder, unspecified type F41.9 and Encounter for drug screening Z02.83 [facility] [address] [id number] [address] [place] [address] Oct, Bipolar disorder, in partial remission, most recent episode hypomanic F31.71 [facility] [address] [id number] [address] [place] [address] Oct, Bipolar disorder, in partial remission, most recent episode hypomanic F31.71 [facility] [address] [id number] [address] [place] [id number] Aug, Bipolar disorder, in partial remission, most recent episode hypomanic F31.71 [facility] [address] [id number] [address] [place] [phone] Aug, Bipolar disorder, in partial remission, most recent episode hypomanic F31.71 [facility] [address] [id number] [address] [place] [address] Aug, Bipolar disorder, in partial remission, most recent episode hypomanic F31.71 [facility] [address] [id number] [address] [place] [address] Jul, Bipolar disorder, in partial remission, most recent episode hypomanic F31.71 ; Attention deficit hyperactivity disorder (ADHD), combined type F90.2 and Anxiety disorder, unspecified type F41.9 [facility] [address] [id number] [address] [place] [address] Jul, Bipolar disorder, in partial remission, most recent episode hypomanic F31.71 [facility] [address] [id number] [address] [place] [address] Jun, Bipolar disorder, in partial remission, most recent episode hypomanic F31.71 [facility] [address] [id number] [address] [place] [address] May, Bipolar disorder, in partial remission, most recent episode hypomanic F31.71 [facility] [address] [facility] [id number] [address] [place] [address] May, Bipolar disorder, in partial remission, most recent episode hypomanic F31.71 [facility] [address] [facility] [id number] [address] [place] [address] Apr, [facility] [address] [id number] [address] [place] [address] Apr, Bipolar disorder, in partial remission, most recent episode hypomanic F31.71 ; Attention deficit hyperactivity disorder (ADHD), combined type F90.2 ; Anxiety disorder, unspecified type F41.9 and Cannabis abuse F12.10 [facility] [address] [id number] [address] [place] [address] Apr, Attention deficit hyperactiv ity disorder (ADHD), combined type F90.2 [facility] [address] [id number] [address] [place] [phone] Mar, Attention deficit hyperactiv ity disorder (ADHD), combined type F90.2 [facility] [address] [facility] [id number] [address] [place] [address] Mar, Anxiety disorder, unspecifie d type F41.9 [facility] [address] [facility] [id number] [address] [place] [phone] Jan, Attention deficit hyperactiv ity disorder (ADHD), combined type F90.2 [facility] [address] [facility] [id number] [address] [place] [address] Jan, Anxiety disorder, unspecifie d type F41.9 [facility] [address] [facility] [id number] [address] [place] [address] Jan, Other chronic pain G89.29 ; Chronic hepatitis C without hepatic coma B18.2 and Bipolar 1 disorder F31.9 [facility] [address] [facility] [id number] [address] [place] [phone] Dec, Attention deficit hyperactiv ity disorder (ADHD), combined type F90.2 [facility] [address] [facility] [id number] [address] [place] [address] Dec, Bipolar disorder, in partial remission, most recent episode hypomanic F31.71 ; Attention deficit hyperactivity disorder (ADHD), combined type F90.2 and Anxiety disorder, unspecified type F41.9 [facility] [address] [facility] [id number] [address] [place] [address] Dec, Bipolar disorder, in partial remission, most recent episode hypomanic F31.71 ; Attention deficit hyperactivity disorder (ADHD), combined type F90.2 and Anxiety disorder, unspecified type F41.9 [facility] [address] [facility] [id number] [address] [place] [address] Dec, Bipolar 1 disorder F31.9 and Attention deficit R41.840 [facility] [address] [facility] [id number] [address] [place] [address] Oct, Other chronic pain G89.29 ; Alopecia L65.9 and Screening, lipid Z13.220 [facility] [address] [facility] [id number] [address] [place] [address] Oct, [place] [address] [facility] [id number] [address] [place] [address] Aug, [facility] [address] [facility] [id number] [address] [place] [address] Aug, Eustachian tube dysfunction, right H69.81 ; Vertigo R42 and Other chronic pain G89.29 [facility] [address] [id number] [address] [place] [address] Aug, [facility] [address] [id number] [address] [place] [phone] Jun, [facility] [address] [id number] [address] [place] [address] Jun, Low back pain M54.5 and Othe r chronic pain G89.29 [facility] [address] [id number] [address] [place] [address] Jun, [facility] [address] [id number] [address] [place] [address] May, [facility] [address] [id number] [address] [place] [phone] Jan, [facility] [address] [id number] [address] [place] [address] Dec, [facility] [address] [id number] [address] [place] [address] Dec, [facility] [address] [id number] [address] [place] [address] Jun, [facility] [address] [id number] [address] [place] [phone] Apr, Eustachian tube dysfunction, unspecified laterality H69.80 ; Hot flashes N95.1 and Encounter for immunization Z23 [facility] [address] [id number] [address] [place] [address] Jan, [facility] [address] [id number] [address] [place] [address] Jan, [facility] [address] [id number] [address] [place] [address] Jan, [facility] [address] [id number] [address] [place] [address] Jan, [facility] [address] [id number] [address] [place] [address] Jan, Encounter to establish care V65.8 ; Bipolar 1 disorder 296.7 ; Abdominal pain 789.00 ; Constipation 564.00 ; Hard of hearing 389.9 and Drug abuse 305.90 [facility] [address] [id number] [address] [place] [address] Dec, [facility] [address] [id number] [address] [place] [address] October, [facility] [address] [id number] [address] [place] [phone] October, [facility] [address] [id number] [address] [place] [phone] Oct, [facility] [address] [id number] [address] [place] [phone] Oct, [facility] [address] [id number] [address] [place] [phone] Oct, [facility] [address] [id number] [address] [place] [phone] Aug, [facility] [address] [id number] [address] [place] [phone] Aug, [facility] [address] [id number] [address] [place] [phone] Aug, [facility] [address] [id number] [address] [place] [address] Aug, [facility] [address] [id number] [address] [place] [phone] Aug, [facility] [address] [id number] [address] [place] [phone] Aug, [facility] [address] [id number] [address] [place] [address], [place] [address] Aug, 2014 [facility] [address] [id number] [address] [place] [address], [place] [address] Aug, 2014 [facility] [address] [id number] [address] [place] [address], [place] [address] Aug, 2014 [facility] [address] [id number] [address] [place] [address], [place] [address] Aug, 2014 [facility] [address] [id number] [address] [place] [address], [place] [address] Aug, 2014 [facility] [address] [id number] [address] [place] [address], [place] [address] Aug, 2014 [facility] [address] [id number] [address] [place] [address], [place] [address] Aug, 2014 [facility] [address] [id number] [address] [place] [address], [place] [address] Aug, 2014 [facility] [address] [id number] [address] [place] [address], [place] [address] Aug, [facility] [address] [id number] [address] [place] [address], [place] [address] Jul, [facility] [address] [id number] [address] [place] [address], [place] [address] Jul, [facility] [address] [id number] [address] [place] [address], [place] [address] Jul, [facility] [address] [id number] [address] [place] [address], [place] [address] Jul, [facility] [address] [id number] [address] [place] [address], [place] [address] Jul, [facility] [address] [id number] [address] [place] [address], [place] [address] Jul, [facility] [address] [id number] [address] [place] [address], [place] [address] Jul, [facility] [address] [id number] [address] [place] [address], [place] [address] Jul, [facility] [address] [id number] [address] [place] [address], [place] [address] Jun, [facility] [address] [id number] [address] [place] [address], [place] [address] Jun, [facility] [address] [id number] [address] [place] [address], [place] [address] Jun, [facility] [address] [id number] [address] [place] [address], [place] [address] Jun, [facility] [address] [id number] [address] [place] [address], [place] [address] Jun, [facility] [address] [id number] [address] [place] [address], [place] [address] Jun, [facility] [address] [id number] [address] [place] [address], [place] [address] Jun, [facility] [address] [id number] [address] [place] [address], [place] [address] Jun, [facility] [address] [id number] [address] [place] [address], [place] [address] Jun, [facility] [address] [id number] [address] [place] [address], [place] [address] Jun, [facility] [address] [id number] [address] [place] [address], [place] [address] Jun, [facility] [address] [id number] [address] [place] [address], [place] [address] May, [facility] [address] [id number] [address] [place] [address], [place] [address] May, [facility] [address] [id number] [address] [place] [address], [place] [address] May, [facility] [address] [id number] [address] [place] [address], [place] [address] May, [facility] [address] [id number] [address] [place] [address], [place] [address] May, [facility] [address] [id number] [address] [place] [address], [place] [address] May, [facility] [address] [id number] [address] [place] [address], [place] [address] May, [facility] [address] [id number] [address] [place] [address], [place] [address] Apr, [facility] [address] [id number] [address] [place] [address], [place] [address] Apr, [facility] [address] [id number] [address] [place] [address], [place] [address] Apr, [facility] [address] [id number] [address] [place] [address], [place] [address] Apr, [facility] [address] [id number] [address] [place] [address], [place] [address] Apr, [facility] [address] [id number] [address] [place] [address], [place] [address] Apr, [facility] [address] [id number] [address] [place] [address], [place] [address] Mar, [facility] [address] [id number] [address] [place] [address], [place] [address] 29 Mar, 2013 [facility] [address] [id number] [address] [place] [address], [place] [address] 10 Mar, 2013 [facility] [address] [id number] [address] [place] [address], [place] [address] 10 Mar, 2013 [facility] [address] [id number] [address] [place] [address], [place] [address] Mar, 2013 [facility] [address] [id number] [address] [place] [address], [place] [address] Mar, [facility] [address] [id number] [address] [place] [address], [place] [address] Jan, [facility] [address] [id number] [address] [place] [address], [place] [address] Jan, [facility] [address] [id number] [address] [place] [address], [place] [address] Jan, [facility] [address] [id number] [address] [place] [address], [place] [address] Jan, [facility] [address] [id number] [address] [place] [address], [place] [address] Dec, [facility] [address] [id number] [address] [place] [address], [place] [address] Dec, [facility] [address] [id number] [address] [place] [address], [place] [address] Dec, [facility] [address] [id number] [address] [place] [address], [place] [address] Dec, [facility] [address] [id number] [address] [place] [address], [place] [address] Dec, [facility] [address] [id number] [address] [place] [address], [place] [address] Dec, [facility] [address] [id number] [address] [place] [address], [place] [address] Dec, [facility] [address] [id number] [address] [place] [address], [place] [address] Dec, [facility] [address] [id number] [address] [place] [address], [place] [address] Dec, [facility] [address] [id number] [address] [place] [address], [place] [address] Dec, [facility] [address] [id number] [address] [place] [address], [place] [address] Dec, [facility] [address] [id number] [address] [place] [address], [place] [address] Dec, [facility] [address] [id number] [address] [place] [address], [place] [address] October, [facility] [address] [id number] [address] [place] [address], [place] [address] October, [facility] [address] [id number] [address] [place] [address], [place] [address] October, [facility] [address] [id number] [address] [place] [address], [place] [address] October, [facility] [address] [id number] [address] [place] [address], [place] [address] October, [facility] [address] [id number] [address] [place] [address], [place] [address] October, [facility] [address] [id number] [address] [place] [address], [place] [address] Oct, [facility] [address] [id number] [address] [place] [address], [place] [address] Oct, [facility] [address] [id number] [address] [place] [address], [place] [address] Oct, [facility] [address] [id number] [address] [place] [address], [place] [address] Oct, [facility] [address] [id number] [address] [place] [address], [place] [address] Oct, [facility] [address] [id number] [address] [place] [address], [place] [address] Oct, [facility] [address] [id number] [address] [place] [address], [place] [address] Oct, [facility] [address] [id number] [address] [place] [address], [place] [address] Oct, [facility] [address] [id number] [address] [place] [address], [place] [address] Oct, [facility] [address] [id number] [facility] [place] [address] 09 Oct, 2013 [facility] [address] [id number] [facility] [place] [address] Oct, [facility] [address] [id number] [address] [place] [address], [place] [address] Oct, [facility] [address] [id number] [address] [place] [address], [place] [address] Aug, [facility] [address] [id number] [address] [place] [address], [place] [address] Aug, [facility] [address] [id number] [address] [place] [address], [place] [address] Aug, [facility] [address] [id number] [address] [place] [address], [place] [address] Aug, [facility] [address] [id number] [address] [place] [address], [place] [address] Aug, [facility] [address] [id number] [address] [place] [address], [place] [address] 05 Aug, 2013 [facility] [address] [id number] [address] [place] [address], [place] [address] Aug, [facility] [address] [id number] [address] [place] [address], [place] [address] Aug, [facility] [address] [id number] [address] [place] [address], [place] [address] Aug, [facility] [address] [id number] [address] [place] [address], [place] [address] Aug, [facility] [address] [id number] [address] [place] [address], [place] [address] Aug, [facility] [address] [id number] [address] [place] [address], [place] [address] Aug, [facility] [address] [id number] [address] [place] [address], [place] [address] Aug, [facility] [address] [id number] [address] [place] [address], [place] [address] 20 Aug, 2013 [facility] [address] [id number] [address] [place] [address], [place] [address] 14 Aug, 2013 [facility] [address] [id number] [address] [place] [address], [place] [address] 14 Aug, 2013 [facility] [address] [id number] [address] [place] [address], [place] [address] 14 Aug, 2013 [facility] [address] [id number] [address] [place] [address], [place] [address] 14 Aug, 2013 [facility] [address] [id number] [address] [place] [address], [place] [address] 07 Aug, 2013 [facility] [address] [id number] [address] [place] [address], [place] [address] 07 Aug, 2013 [facility] [address] [id number] [address] [place] [address], [place] [address] 06 Aug, 2013 [facility] [address] [id number] [address] [place] [address], [place] [address] 06 Aug, 2013 [facility] [address] [id number] [address] [place] [address], [place] [address] 04 Aug, 2013 [facility] [address] [id number] [address] [place] [address], [place] [address] 04 Aug, 2013 [facility] [address] [id number] [address] [place] [address], [place] [address] Aug, [facility] [address] [id number] [address] [place] [address], [place] [address] Jul, [facility] [address] [id number] [address] [place] [address], [place] [address] Jul, [facility] [address] [id number] [address] [place] [address], [place] [address] Jul, [facility] [address] [id number] [address] [place] [address], [place] [address] Jul, [facility] [address] [id number] [address] [place] [address], [place] [address] Jul, [facility] [address] [id number] [address] [place] [address], [place] [address] Jul, [facility] [address] [id number] [address] [place] [address], [place] [address] Jul, [facility] [address] [id number] [address] [place] [address], [place] [address] Jul, [facility] [address] [id number] [address] [place] [address], [place] [address] Jul, [facility] [address] [id number] [address] [place] [address], [place] [address] Jul, [facility] [address] [id number] [address] [place] [address], [place] [address] Jul, [facility] [address] [id number] [address] [place] [address], [place] [address] Jul, [facility] [address] [id number] [address] [place] [address], [place] [address] Jul, [facility] [address] [id number] [address] [place] [address], [place] [address] Jul, [facility] [address] [id number] [address] [place] [address], [place] [address] Jul, [facility] [address] [id number] [address] [place] [address], [place] [address] Jul, [facility] [address] [id number] [address] [place] [address], [place] [address] Jul, [facility] [address] [id number] [address] [place] [address], [place] [address] Jul, [facility] [address] [id number] [address] [place] [address], [place] [address] Jul, [facility] [address] [id number] [address] [place] [address], [place] [address] Jul, [facility] [address] [id number] [address] [place] [address], [place] [address] Jun, [facility] [address] [id number] [address] [place] [address], [place] [address] Jun, [facility] [address] [id number] [address] [place] [address], [place] [address] Jun, [facility] [address] [id number] [address] [place] [address], [place] [address] Jun, [facility] [address] [id number] [address] [place] [address], [place] [address] Jun, [facility] [address] [id number] [address] [place] [address], [place] [address] Jun, [facility] [address] [id number] [address] [place] [address], [place] [address] Jun, [facility] [address] [id number] [address] [place] [address], [place] [address] Jun, [facility] [address] [id number] [address] [place] [address], [place] [address] Jun, [facility] [address] [id number] [address] [place] [address], [place] [address] Jun, [facility] [address] [id number] [address] [place] [address], [place] [address] Jun, [facility] [address] [id number] [address] [place] [address], [place] [address] Jun, [facility] [address] [id number] [address] [place] [address], [place] [address] Jun, [facility] [address] [id number] [address] [place] [address], [place] [address] Jun, [facility] [address] [id number] [address] [place] [address], [place] [address] 20 Jun, 2013 [facility] [address] [id number] [address] [place] [address], [place] [address] 18 Jun, 2013 [facility] [address] [id number] [address] [place] [address], [place] [address] 18 Jun, 2013 [facility] [address] [id number] [address] [place] [address], [place] [address] 17 Jun, 2013 [facility] [address] [id number] [address] [place] [address], [place] [address] 17 Jun, 2013 [facility] [address] [id number] [address] [place] [address], [place] [address] 13 Jun, 2013 [facility] [address] [id number] [address] [place] [address], [place] [address] 12 Jun, 2013 [facility] [address] [id number] [address] [place] [address], [place] [address] 12 Jun, 2013 [facility] [address] [id number] [address] [place] [address], [place] [address] 09 Jun, 2013 [facility] [address] [id number] [address] [place] [address], [place] [address] 05 Jun, 2013 [facility] [address] [id number] [address] [place] [address], [place] [address] 05 Jun, 2013 [facility] [address] [id number] [address] [place] [address], [place] [address] 04 Jun, 2013 [facility] [address] [id number] [address] [place] [address], [place] [address] 04 Jun, 2013 [facility] [address] [id number] [address] [place] [address], [place] [address] 17 May, 2013 [facility] [address] [id number] [address] [place] [address], [place] [address] 17 May, 2013 [facility] [address] [id number] [address] [place] [address], [place] [address] May, [facility] [address] [id number] [address] [place] [address], [place] [address] May, [facility] [address] [id number] [address] [place] [address], [place] [address] May, [facility] [address] [id number] [address] [place] [address], [place] [address] May, [facility] [address] [id number] [address] [place] [address], [place] [address] Apr, [facility] [address] [id number] [address] [place] [address], [place] [address] Apr, [facility] [address] [id number] [address] [place] [address], [place] [address] Apr, [facility] [address] [id number] [address] [place] [address], [place] [address] Apr, [facility] [address] [id number] [address] [place] [address], [place] [address] Apr, [facility] [address] [id number] [address] [place] [address], [place] [address] Apr, [facility] [address] [id number] [address] [place] [address], [place] [address] Apr, [facility] [address] [id number] [address] [place] [address], [place] [address] Apr, [facility] [address] [id number] [address] [place] [address], [place] [address] 26 Mar, 2013 [facility] [address] [id number] [address] [place] [address] [address] 24 Sep2012 [facility] [address] [id number] [address] [place] [address], [place] [address] 17 Mar, 2013 [facility] [address] [id number] [address] [place] [address], [place] [address] 17 Mar, 2013 [facility] [address] [id number] [address] [place] [address] [place] [address] 11 Mar, 2013 [facility] [address] [id number] [address] [place] [address], [place] [address] 10 Mar, 2013 [facility] [address] [id number] [address] [place] [address], [place] [address] 05 Mar, 2013 [facility] [address] [id number] [address] [place] [address], [place] [address] 04 Mar, 2013 [facility] [address] [id number] [address] [place] [address], [place] [address] 20 Jan, 2013 [facility] [address] [id number] [address] [place] [address], [place] [address] Jan, [facility] [address] [id number] [address] [place] [address], [place] [address] 14 Jan, 2013 [facility] [address] [id number] [address] [place] [address], [place] [address] Jan, [facility] [address] [id number] [address] [place] [address], [place] [address] Jan, [facility] [address] [id number] [address] [place] [address], [place] [address] Jan, [facility] [address] [id number] [address] [place] [address], [place] [address] Dec, [facility] [address] [id number] [address] [place] [address], [place] [address] Dec, [facility] [address] [id number] [address] [place] [address], [place] [address] Dec, [facility] [address] [id number] [address] [place] [address], [place] [address] Dec, [facility] [address] [id number] [address] [place] [address], [place] [address] Dec, [facility] [address] [id number] [address] [place] [address], [place] [address] 17 Dec, 2012 [facility] [address] [id number] [address] [place] [address], [place] [address] 16 Dec, 2012 [facility] [address] [id number] [address] [place] [address], [place] [address] 16 Dec, 2012 [facility] [address] [id number] [address] [place] [address], [place] [address] 15 Dec, 2012 [facility] [address] [id number] [address] [place] [address], [place] [address] 10 Dec, 2012 [facility] [address] [id number] [address] [place] [address], [place] [address] 28 Dec, 2012 [facility] [address] [id number] [address] [place] [address], [place] [address] Dec, [facility] [address] [id number] [address] [place] [address], [place] [address] Dec, [facility] [address] [id number] [address] [place] [address], [place] [address] Dec, [facility] [address] [id number] [address] [place] [address], [place] [address] Dec, [facility] [address] [id number] [address] [place] [address], [place] [address] Dec, [facility] [address] [id number] [address] [place] [address], [place] [address] October, [facility] [address] [id number] [address] [place] [address], [place] [address] October, [facility] [address] [id number] [address] [place] [address], [place] [address] October, [facility] [address] [id number] [address] [place] [address], [place] [address] October, [facility] [address] [id number] [address] [place] [address], [place] [address] October, [facility] [address] [id number] [address] [place] [address], [place] [address] October, [facility] [address] [id number] [address] [place] [address], [place] [address] October, [facility] [address] [id number] [address] [place] [address], [place] [address] Oct, [facility] [address] [id number] [address] [place] [address], [place] [address] Oct, [facility] [address] [id number] [address] [place] [address], [place] [address] Oct, [facility] [address] [id number] [address] [place] [address], [place] [address] Oct, [facility] [address] [id number] [address] [place] [address], [place] [address] Oct, [facility] [address] [id number] [address] [place] [address], [place] [address] Oct, [facility] [address] [id number] [address] [place] [address], [place] [address] Oct, [facility] [address] [id number] [address] [place] [address], [place] [address] 15 Oct, 2012 [facility] [address] [id number] [address] [place] [address], [place] [address] Oct, [facility] [address] [id number] [address] [place] [address], [place] [address] Oct, [facility] [address] [id number] [address] [place] [address], [place] [address] Oct, [facility] [address] [id number] [address] [place] [address], [place] [address] Oct, [facility] [address] [id number] [address] [place] [address], [place] [address] Aug, [facility] [address] [id number] [address] [place] [address], [place] [address] Aug, [facility] [address] [id number] [address] [place] [address], [place] [address] 12 Aug, 2012 [facility] [address] [id number] [address] [place] [address], [place] [address] 06 Aug, 2012 [facility] [address] [id number] [address] [place] [address], [place] [address] 05 Aug, 2012 [facility] [address] [id number] [address] [place] [address], [place] [address] 05 Aug, 2012 [facility] [address] [id number] [address] [place] [address], [place] [address] 20 Aug, 2012 [facility] [address] [id number] [address] [place] [address], [place] [address] 14 Aug, 2012 [facility] [address] [id number] [address] [place] [address], [place] [address] 12 Aug, 2012 [facility] [address] [id number] [address] [place] [address], [place] [address] Aug, [facility] [address] [id number] [address] [place] [address], [place] [address] Jul, [facility] [address] [id number] [address] [place] [address], [place] [address] Jul, [facility] [address] [id number] [address] [place] [address], [place] [address] Jul, [facility] [address] [id number] [address] [place] [address], [place] [address] Jun, [facility] [address] [id number] [address] [place] [address], [place] [address] Jun, [facility] [address] [id number] [address] [place] [address], [place] [address] Jun, [facility] [address] [id number] [address] [place] [address], [place] [address] Jun, [facility] [address] [id number] [address] [place] [address], [place] [address] Jun, [facility] [address] [id number] [address] [place] [address], [place] [address] 14 Jun, 2012 [facility] [address] [id number] [address] [place] [address], [place] [address] 14 Jun, 2012 [facility] [address] [id number] [address] [place] [address], [place] [address] 13 Jun, 2012 [facility] [address] [id number] [address] [place] [address], [place] [address] 13 Jun, 2012 [facility] [address] [id number] [address] [place] [address], [place] [address] 11 Jun, 2012 [facility] [address] [id number] [address] [place] [address], [place] [address] 11 Jun, 2012 [facility] [address] [id number] [address] [place] [address], [place] [address] 11 Jun, 2012 [facility] [address] [id number] [address] [place] [address], [place] [address] 11 Jun, 2012 [facility] [address] [id number] [address] [place] [address], [place] [address] 07 Jun, 2012 [facility] [address] [id number] [address] [place] [address], [place] [address] 07 Jun, 2012 [facility] [address] [id number] [address] [place] [address], [place] [address] 06 Jun, 2012 [facility] [address] [id number] [address] [place] [address], [place] [address] 06 Jun, 2012 [facility] [address] [id number] [address] [place] [address], [place] [address] Jun, [facility] [address] [id number] [address] [place] [address], [place] [address] 06 Jun, 2012 [facility] [address] [id number] [address] [place] [address], [place] [address] 05 Jun, 2012 [facility] [address] [id number] [address] [place] [address], [place] [address] Jun, [facility] [address] [id number] [address] [place] [address], [place] [address] Jun, [facility] [address] [id number] [address] [place] [address], [place] [address] Jun, [facility] [address] [id number] [address] [place] [address], [place] [address] May, [facility] [address] [id number] [address] [place] [address], [place] [address] May, [facility] [address] [id number] [address] [place] [address], [place] [address] May, [facility] [address] [id number] [address] [place] [address], [place] [address] May, [facility] [address] [id number] [address] [place] [address], [place] [address] May, [facility] [address] [id number] [address] [place] [address], [place] [address] May, [facility] [address] [id number] [address] [place] [address], [place] [address] May, [facility] [address] [id number] [address] [place] [address], [place] [address] May, [facility] [address] [id number] [address] [place] [address], [place] [address] Apr, [facility] [address] [id number] [address] [place] [address] Apr, [facility] [address] [id number] [address] [place] [address], [place] [address] Apr, [facility] [address] [id number] [address] [place] [address], [place] [address] Apr, [facility] [address] [id number] [address] [place] [address] Apr, [facility] [address] [id number] [address] [place] [address], [place] [address] Apr, [facility] [address] [id number] [address] [place] [address], [place] [address] Apr, [facility] [address] [id number] [address] [place] [address], [place] [address] Apr, [facility] [address] [id number] [address] [place] [address], [place] [address] Apr, [facility] [address] [id number] [address] [place] [address], [place] [address] Apr, [facility] [address] [id number] [address] [place] [address], [place] [address] Apr, [facility] [address] [id number] [address] [place] [address], [place] [address] Apr, [facility] [address] [id number] [address] [place] [address], [place] [address] Mar, [facility] [address] [id number] [address] [place] [address], [place] [address] 18 Mar, 2012 [facility] [address] [id number] [address] [place] [address] Mar, [facility] [address] [id number] [address] [place] [address] Mar, [facility] [address] [id number] [address] [place] [id number] Mar, [facility] [address] [id number] [address] [place] [id number] Mar, [facility] [address] [id number] [address] [place] [address], [place] [address] Mar, [facility] [address] [id number] [address] [place] [address], [place] [address] Jan, [facility] [address] [id number] [address] [place] [id number] Jan, [facility] [address] [id number] [facility] [id number] Jan, [facility] [address] [id number] [facility] [id number] Jan, [facility] [address] [id number] [address] [place] [address], [place] [address] Jan, [facility] [address] [id number] [address] [place] [address], [place] [address] Jan, [facility] [address] [id number] [address] [place] [address], [place] [address] Jan, [facility] [address] [id number] [address] [place] [address], [place] [address] Jan, [facility] [address] [id number] [address] [place] [address], [place] [address] Jan, [facility] [address] [id number] [address] [place] [address], [place] [address] Jan, [facility] [address] [id number] [address] [place] [address], [place] [address] Jan, [facility] [address] [id number] [address] [place] [address], [place] [address] Dec, [facility] [address] [id number] [address] [place] [address], [place] [address] Dec, [facility] [address] [id number] [address] [place] [address], [place] [address] Dec, [facility] [address] [id number] [address] [place] [address], [place] [address] Dec, [facility] [address] [id number] [address] [place] [address], [place] [address] Dec, [facility] [address] [id number] [address] [place] [address], [place] [address] Dec, [facility] [address] [id number] [address] [place] [address] [place] [address] 18 Jan, 2012 [facility] [address] [id number] [address] [place] [address], [place] [address] 17 Jan, 2012 [facility] [address] [id number] [address] [place] [address], [place] [address] 16 Jan, 2012 [facility] [address] [id number] [address] [place] [address], [place] [address] 13 Jan, 2012 [facility] [address] [id number] [address] [place] [address], [place] [address] 13 Jan, 2012 [facility] [address] [id number] [address] [place] [address], [place] [address] 02 Jan, 2012 [facility] [address] [id number] [address] [place] [address], [place] [address] Dec, [facility] [address] [id number] [address] [place] [address], [place] [address] Dec, [facility] [address] [id number] [address] [place] [address], [place] [address] Dec, [facility] [address] [id number] [address] [place] [address], [place] [address] Dec, [facility] [address] [id number] [address] [place] [address], [place] [address] 15 Dec, 2011 [facility] [address] [id number] [address] [place] [address], [place] [address] Dec, [facility] [address] [id number] [address] [place] [address], [place] [address] Dec, [facility] [address] [id number] [address] [place] [address], [place] [address] October, [facility] [address] [id number] [address] [place] [address], [place] [address] October, [facility] [address] [id number] [address] [place] [address], [place] [address] October, [facility] [address] [id number] [address] [place] [address], [place] [address] October, [facility] [address] [id number] [address] [place] [address], [place] [address] October, [facility] [address] [id number] [address] [place] [address], [place] [address] October, [facility] [address] [id number] [address] [place] [address], [place] [address] Oct, [facility] [address] [id number] [address] [place] [address], [place] [address] 24 Oct, 2011 [facility] [address] [id number] [address] [place] [address], [place] [address] Oct, [facility] [address] [id number] [address] [place] [address], [place] [address] Oct, [facility] [address] [id number] [address] [place] [address], [place] [address] Oct, [facility] [address] [id number] [address] [place] [address], [place] [address] Oct, [facility] [address] [id number] [address] [place] [address], [place] [address] Oct, [facility] [address] [id number] [address] [place] [address], [place] [address] Aug, [facility] [address] [id number] [address] [place] [address], [place] [address] 29 Sep, 2011 [facility] [address] [id number] [address] [place] [address], [place] [address] 19 Sep, 2011 [facility] [address] [id number] [address] [place] [address], [place] [address] 13 Sep, 2011 [facility] [address] [id number] [address] [place] [address], [place] [address] 05 Sep, 2011 [facility] [address] [id number] [address] [place] [address], [place] [address] Aug, [facility] [address] [id number] [address] [place] [address], [place] [address] Aug, [facility] [address] [id number] [address] [place] [address], [place] [address] Aug, [facility] [address] [id number] [address] [place] [address], [place] [address] Aug, [facility] [address] [id number] [address] [place] [address], [place] [address] Jul, [facility] [address] [id number] [address] [place] [address], [place] [address] Jul, [facility] [address] [id number] [address] [place] [address], [place] [address] Jul, [facility] [address] [id number] [address] [place] [address], [place] [address] Jul, [facility] [address] [id number] [address] [place] [address], [place] [address] Jun, [facility] [address] [id number] [address] [place] [address], [place] [address] Jun, [facility] [address] [id number] [address] [place] [address], [place] [address] May, [facility] [address] [id number] [address] [place] [address], [place] [address] May, [facility] [address] [id number] [address] [place] [address], [place] [address] May, [facility] [address] [id number] [address] [place] [address], [place] [address] May, [facility] [address] [id number] [address] [place] [address], [place] [address] 07 May, 2011 [facility] [address] [id number] [address] [place] [address], [place] [address] Apr, [facility] [address] [id number] [address] [place] [address] Apr, [facility] [address] [id number] [address] [place] [address] Apr, [facility] [address] [id number] [address] [place] [address] Jan, [facility] [address] [id number] [address] [place] [address] Dec, [facility] [address] [id number] [address] [place] [id number] October, [facility] [address] [id number] [address] [place] [address] Jun, [facility] [address] [id number] [address] [place] [address] Apr, [facility] [address] [id number] [address] [place] [address] Apr, [facility] [address] [id number] [address] [place] [address] Apr, [facility] [address] [id number] [address] [place] [address] Jun, IMMUNIZATIONS No Known Immunizations SOCIAL HISTORY Never Assessed REASON FOR VISIT [facility] [place]AN OF [...]
--- OUTSIDE RECORDS SUMMARY | 2020-01-25 13:03 | XMS REPORT ---
Author Author Ana Mayer Doctor Organization [facility] Address Unknown Phone Unavailable Care Team Providers Care Product Consultant Name Role Phone Migration, Doctor Unavailable Unavailable PROBLEMS Type Condition ICD9-CM Code [id number] Code Onset Dates Condition S tatus SNOMED Code Problem Attention deficit R41.840 Active 76 671262 Problem Chronic hepatitis C without hepatic coma B18.2 Active 507974718 Problem Cannabis abuse F12.10 Active 74101 009 Problem Bipolar disorder, in partial remission, most rec ent episode hypomanic F31.71 Active 174023834 Problem Attention deficit hyperactivity disorder (ADHD), combi luciano type F90.2 Active 00651786 Problem Bipolar 1 disorder F31.9 Active 3 10791616 Problem H/O laminectomy Z98.89 Active 1616 66461 Problem Other chronic pain G89.29 Active 8 8021407 Problem Anxiety disorder, unspecified type F41.9 Active [id number] ALLERGIES No Information ENCOUNTERS Encounter Location Date Diagnosis [facility] [address] [facility] [id number] [address] [place] [address] Oct, [facility] [address] [facility] [id number] [address] [place] [address] Aug, Bipolar disorder, in partial remission, most recent episode hypomanic F31.71 ; Attention deficit hyperactivity disorder (ADHD), combined type F90.2 and Anxiety disorder, unspecified type F41.9 [facility] [address] [facility] [id number] [address] [place] [address] Aug, [facility] [address] [facility] [id number] [address] [place] [address] Aug, Bipolar disorder, in partial remission, most recent episode hypomanic F31.71 [facility] [address] [facility] [id number] [address] [place] [address] Aug, [facility] [address] [id number] [address] [place] [address] Aug, Bipolar disorder, in partial remission, most recent episode hypomanic F31.71 [facility] [address] [id number] [address] [place] [address] Aug, Bipolar disorder, in partial remission, most recent episode hypomanic F31.71 ; Attention deficit hyperactivity disorder (ADHD), combined type F90.2 and Anxiety disorder, unspecified type F41.9 [facility] [address] [id number] [address] [place] [address] Aug, Low back pain M54.5 and Pain in left wrist M25.532 [facility] [address] [id number] [address] [place] [address] Aug, [facility] [address] [id number] [address] [place] [address] Jun, [facility] [address] [facility] [id number] [address] [place] [address] Apr, Bipolar disorder, in partial remission, most recent episode hypomanic F31.71 [facility] [address] [id number] [address] [place] [address] Apr, [facility] [address] [id number] [address] [place] [address] Apr, Bipolar disorder, in partial remission, most recent episode hypomanic F31.71 ; Attention deficit hyperactivity disorder (ADHD), combined type F90.2 ; Anxiety disorder, unspecified type F41.9 and Other custodial (current) 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 Z79.899 [facility] [address] [id number] [address] [place] [address] Apr, Bipolar disorder, in partial remission, most recent episode hypomanic F31.71 [facility] [address] [id number] [address] [place] [address] Apr, Bipolar disorder, in partial remission, most recent episode hypomanic F31.71 [facility] [address] [facility] [id number] [address] [place] [address] Mar, [facility] [address] [id number] [address] [place] [address] Mar, Bipolar disorder, in partial remission, most recent episode hypomanic F31.71 ; Encounter for immunization Z23 and Low back pain M54.5 [facility] [address] [id number] [address] [place] [address] Mar, Bipolar disorder, in partial remission, most recent episode hypomanic F31.71 [facility] [address] [id number] [address] [place] [address] Mar, Bipolar disorder, in partial remission, most recent episode hypomanic F31.71 [facility] [address] [facility] [id number] [address] [place] [address] Jan, Bipolar disorder, in partial remission, most recent episode hypomanic F31.71 [facility] [address] [facility] [id number] [address] [place] [address] Jan, Bipolar disorder, in partial remission, most recent episode hypomanic F31.71 [facility] [address] [facility] [id number] [address] [place] [address] Dec, Bipolar disorder, in partial remission, most recent episode hypomanic F31.71 [facility] [address] [facility] [id number] [address] [place] [address] Dec, Bipolar disorder, in partial remission, most recent episode hypomanic F31.71 ; Attention deficit hyperactivity disorder (ADHD), combined type F90.2 ; Anxiety disorder, unspecified type F41.9 and Other custodial (current) 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 Z79.899 [facility] [address] [facility] [id number] [address] [place] [address] Dec, Bipolar disorder, in partial remission, most recent episode hypomanic F31.71 [facility] [address] [facility] [id number] [address] [place] [address] Dec, Bipolar disorder, in partial remission, most recent episode hypomanic F31.71 [facility] [address] [id number] [address] [place] [address] October, Bipolar disorder, in partial remission, most recent episode hypomanic F31.71 [facility] [address] [id number] [address] [place] [address] October, [facility] [address] [id number] [address] [place] [address] October, [facility] [address] [id number] [address] [place] [address] Oct, Bipolar disorder, in partial remission, most recent episode hypomanic F31.71 ; Attention deficit hyperactivity disorder (ADHD), combined type F90.2 ; Anxiety disorder, unspecified type F41.9 and Encounter for drug screening Z02.83 [facility] [address] [id number] [address] [place] [address] Oct, Bipolar disorder, in partial remission, most recent episode hypomanic F31.71 [facility] [address] [id number] [address] [place] [address] Oct, Bipolar disorder, in partial remission, most recent episode hypomanic F31.71 [facility] [address] [id number] [address] [place] [address] Aug, Bipolar disorder, in partial remission, most recent episode hypomanic F31.71 [facility] [address] [id number] [address] [place] [address] Aug, Bipolar disorder, in partial remission, most recent episode hypomanic F31.71 [facility] [address] [id number] [address] [place] [address] Aug, Bipolar disorder, in partial remission, most recent episode hypomanic F31.71 [facility] [address] [id number] [address] [place] [address] Jul, Bipolar disorder, in partial remission, most recent episode hypomanic F31.71 ; Attention deficit hyperactivity disorder (ADHD), combined type F90.2 and Anxiety disorder, unspecified type F41.9 [facility] [address] [id number] [address] [place] [address] Jul, Bipolar disorder, in partial remission, most recent episode hypomanic F31.71 [facility] [address] [id number] [address] [place] [address] Jun, Bipolar disorder, in partial remission, most recent episode hypomanic F31.71 [facility] [address] [id number] [address] [place] [address] May, Bipolar disorder, in partial remission, most recent episode hypomanic F31.71 [facility] [address] [facility] [id number] [address] [place] [address] May, Bipolar disorder, in partial remission, most recent episode hypomanic F31.71 [facility] [address] [facility] [id number] [address] [place] [address] Apr, [facility] [address] [id number] [address] [place] [address] Apr, Bipolar disorder, in partial remission, most recent episode hypomanic F31.71 ; Attention deficit hyperactivity disorder (ADHD), combined type F90.2 ; Anxiety disorder, unspecified type F41.9 and Cannabis abuse F12.10 [facility] [address] [id number] [address] [place] [address] Apr, Attention deficit hyperactiv ity disorder (ADHD), combined type F90.2 [facility] [address] [id number] [address] [place] [address] Mar, Attention deficit hyperactiv ity disorder (ADHD), combined type F90.2 [facility] [address] [facility] [id number] [address] [place] [address] Mar, Anxiety disorder, unspecifie d type F41.9 [facility] [address] [facility] [id number] [address] [place] [address] Jan, Attention deficit hyperactiv ity disorder (ADHD), combined type F90.2 [facility] [address] [facility] [id number] [address] [place] [address] Jan, Anxiety disorder, unspecifie d type F41.9 [facility] [address] [facility] [id number] [address] [place] [address] Jan, Other chronic pain G89.29 ; Chronic hepatitis C without hepatic coma B18.2 and Bipolar 1 disorder F31.9 [facility] [address] [facility] [id number] [address] [place] [address] Dec, Attention deficit hyperactiv ity disorder (ADHD), combined type F90.2 [facility] [address] [facility] [id number] [address] [place] [address] Dec, Bipolar disorder, in partial remission, most recent episode hypomanic F31.71 ; Attention deficit hyperactivity disorder (ADHD), combined type F90.2 and Anxiety disorder, unspecified type F41.9 [facility] [address] [facility] [id number] [address] [place] [address] Dec, Bipolar disorder, in partial remission, most recent episode hypomanic F31.71 ; Attention deficit hyperactivity disorder (ADHD), combined type F90.2 and Anxiety disorder, unspecified type F41.9 [facility] [address] [facility] [id number] [address] [place] [address] Dec, Bipolar 1 disorder F31.9 and Attention deficit R41.840 [facility] [address] [facility] [id number] [address] [place] [address] Oct, Other chronic pain G89.29 ; Alopecia L65.9 and Screening, lipid Z13.220 [facility] [address] [facility] [id number] [address] [place] [address] Oct, [place] [address] [facility] [id number] [address] [place] [address] Aug, [facility] [address] [facility] [id number] [address] [place] [address] Aug, Eustachian tube dysfunction, right H69.81 ; Vertigo R42 and Other chronic pain G89.29 [facility] [address] [id number] [address] [place] [address] Aug, [facility] [address] [id number] [address] [place] [address] Jun, [facility] [address] [id number] [address] [place] [address] Jun, Low back pain M54.5 and Othe r chronic pain G89.29 [facility] [address] [id number] [address] [place] [address] Jun, [facility] [address] [id number] [address] [place] [address] May, [facility] [address] [id number] [address] [place] [address] Jan, [facility] [address] [id number] [address] [place] [address] Dec, [facility] [address] [id number] [address] [place] [address] Dec, [facility] [address] [id number] [address] [place] [address] Jun, [facility] [address] [id number] [address] [place] [address] Apr, Eustachian tube dysfunction, unspecified laterality H69.80 ; Hot flashes N95.1 and Encounter for immunization Z23 [facility] [address] [id number] [address] [place] [address] Jan, [facility] [address] [id number] [address] [place] [address] Jan, [facility] [address] [id number] [address] [place] [address] Jan, [facility] [address] [id number] [address] [place] [address] Jan, [facility] [address] [id number] [address] [place] [address] Jan, Encounter to establish care V65.8 ; Bipolar 1 disorder 296.7 ; Abdominal pain 789.00 ; Constipation 564.00 ; Hard of hearing 389.9 and Drug abuse 305.90 [facility] [address] [id number] [address] [place] [address] Dec, [facility] [address] [id number] [address] [place] [address] October, [facility] [address] [id number] [address] [place] [address] October, [facility] [address] [id number] [address] [place] [address] Oct, [facility] [address] [id number] [address] [place] [address] Oct, [facility] [address] [id number] [address] [place] [address] Oct, [facility] [address] [id number] [address] [place] [address] Aug, [facility] [address] [id number] [address] [place] [address] Aug, [facility] [address] [id number] [address] [place] [address] Aug, [facility] [address] [id number] [address] [place] [address] Aug, [facility] [address] [id number] [address] [place] [address] Aug, [facility] [address] [id number] [address] [place] [address] Aug, [facility] [address] [id number] [address] [place] [address], [place] [address] Aug, 2014 [facility] [address] [id number] [address] [place] [address], [place] [address] Aug, 2014 [facility] [address] [id number] [address] [place] [address], [place] [address] Aug, 2014 [facility] [address] [id number] [address] [place] [address], [place] [address] Aug, 2014 [facility] [address] [id number] [address] [place] [address], [place] [address] Aug, 2014 [facility] [address] [id number] [address] [place] [address], [place] [address] Aug, 2014 [facility] [address] [id number] [address] [place] [address], [place] [address] Aug, 2014 [facility] [address] [id number] [address] [place] [address], [place] [address] Aug, 2014 [facility] [address] [id number] [address] [place] [address], [place] [address] Aug, [facility] [address] [id number] [address] [place] [address], [place] [address] Jul, [facility] [address] [id number] [address] [place] [address], [place] [address] Jul, [facility] [address] [id number] [address] [place] [address], [place] [address] Jul, [facility] [address] [id number] [address] [place] [address], [place] [address] Jul, [facility] [address] [id number] [address] [place] [address], [place] [address] Jul, [facility] [address] [id number] [address] [place] [address], [place] [address] Jul, [facility] [address] [id number] [address] [place] [address], [place] [address] Jul, [facility] [address] [id number] [address] [place] [address], [place] [address] Jul, [facility] [address] [id number] [address] [place] [address], [place] [address] Jun, [facility] [address] [id number] [address] [place] [address], [place] [address] Jun, [facility] [address] [id number] [address] [place] [address], [place] [address] Jun, [facility] [address] [id number] [address] [place] [address], [place] [address] Jun, [facility] [address] [id number] [address] [place] [address], [place] [address] Jun, [facility] [address] [id number] [address] [place] [address], [place] [address] Jun, [facility] [address] [id number] [address] [place] [address], [place] [address] Jun, [facility] [address] [id number] [address] [place] [address], [place] [address] Jun, [facility] [address] [id number] [address] [place] [address], [place] [address] Jun, [facility] [address] [id number] [address] [place] [address], [place] [address] Jun, [facility] [address] [id number] [address] [place] [address], [place] [address] Jun, [facility] [address] [id number] [address] [place] [address], [place] [address] May, [facility] [address] [id number] [address] [place] [address], [place] [address] May, [facility] [address] [id number] [address] [place] [address], [place] [address] May, [facility] [address] [id number] [address] [place] [address], [place] [address] May, [facility] [address] [id number] [address] [place] [address], [place] [address] May, [facility] [address] [id number] [address] [place] [address], [place] [address] May, [facility] [address] [id number] [address] [place] [address], [place] [address] May, [facility] [address] [id number] [address] [place] [address], [place] [address] Apr, [facility] [address] [id number] [address] [place] [address], [place] [address] Apr, [facility] [address] [id number] [address] [place] [address], [place] [address] Apr, [facility] [address] [id number] [address] [place] [address], [place] [address] Apr, [facility] [address] [id number] [address] [place] [address], [place] [address] Apr, [facility] [address] [id number] [address] [place] [address], [place] [address] Apr, [facility] [address] [id number] [address] [place] [address], [place] [address] Mar, [facility] [address] [id number] [address] [place] [address], [place] [address] 29 Mar, 2013 [facility] [address] [id number] [address] [place] [address], [place] [address] 10 Mar, 2013 [facility] [address] [id number] [address] [place] [address], [place] [address] 10 Mar, 2013 [facility] [address] [id number] [address] [place] [address], [place] [address] Mar, 2013 [facility] [address] [id number] [address] [place] [address], [place] [address] Mar, [facility] [address] [id number] [address] [place] [address], [place] [address] Jan, [facility] [address] [id number] [address] [place] [address], [place] [address] Jan, [facility] [address] [id number] [address] [place] [address], [place] [address] Jan, [facility] [address] [id number] [address] [place] [address], [place] [address] Jan, [facility] [address] [id number] [address] [place] [address], [place] [address] Dec, [facility] [address] [id number] [address] [place] [address], [place] [address] Dec, [facility] [address] [id number] [address] [place] [address], [place] [address] Dec, [facility] [address] [id number] [address] [place] [address], [place] [address] Dec, [facility] [address] [id number] [address] [place] [address], [place] [address] Dec, [facility] [address] [id number] [address] [place] [address], [place] [address] Dec, [facility] [address] [id number] [address] [place] [address], [place] [address] Dec, [facility] [address] [id number] [address] [place] [address], [place] [address] Dec, [facility] [address] [id number] [address] [place] [address], [place] [address] Dec, [facility] [address] [id number] [address] [place] [address], [place] [address] Dec, [facility] [address] [id number] [address] [place] [address], [place] [address] Dec, [facility] [address] [id number] [address] [place] [address], [place] [address] Dec, [facility] [address] [id number] [address] [place] [address], [place] [address] October, [facility] [address] [id number] [address] [place] [address], [place] [address] October, [facility] [address] [id number] [address] [place] [address], [place] [address] October, [facility] [address] [id number] [address] [place] [address], [place] [address] October, [facility] [address] [id number] [address] [place] [address], [place] [address] October, [facility] [address] [id number] [address] [place] [address], [place] [address] October, [facility] [address] [id number] [address] [place] [address], [place] [address] Oct, [facility] [address] [id number] [address] [place] [address], [place] [address] Oct, [facility] [address] [id number] [address] [place] [address], [place] [address] Oct, [facility] [address] [id number] [address] [place] [address], [place] [address] Oct, [facility] [address] [id number] [address] [place] [address], [place] [address] Oct, [facility] [address] [id number] [address] [place] [address], [place] [address] Oct, [facility] [address] [id number] [address] [place] [address], [place] [address] Oct, [facility] [address] [id number] [address] [place] [address], [place] [address] Oct, [facility] [address] [id number] [address] [place] [address], [place] [address] Oct, [facility] [address] [id number] [facility] [place] [address] 09 Oct, 2013 [facility] [address] [id number] [facility] [place] [address] Oct, [facility] [address] [id number] [address] [place] [address], [place] [address] Oct, [facility] [address] [id number] [address] [place] [address], [place] [address] Aug, [facility] [address] [id number] [address] [place] [address], [place] [address] Aug, [facility] [address] [id number] [address] [place] [address], [place] [address] Aug, [facility] [address] [id number] [address] [place] [address], [place] [address] Aug, [facility] [address] [id number] [address] [place] [address], [place] [address] Aug, [facility] [address] [id number] [address] [place] [address], [place] [address] 05 Aug, 2013 [facility] [address] [id number] [address] [place] [address], [place] [address] Aug, [facility] [address] [id number] [address] [place] [address], [place] [address] Aug, [facility] [address] [id number] [address] [place] [address], [place] [address] Aug, [facility] [address] [id number] [address] [place] [address], [place] [address] Aug, [facility] [address] [id number] [address] [place] [address], [place] [address] Aug, [facility] [address] [id number] [address] [place] [address], [place] [address] Aug, [facility] [address] [id number] [address] [place] [address], [place] [address] Aug, [facility] [address] [id number] [address] [place] [address], [place] [address] 20 Aug, 2013 [facility] [address] [id number] [address] [place] [address], [place] [address] 14 Aug, 2013 [facility] [address] [id number] [address] [place] [address], [place] [address] 14 Aug, 2013 [facility] [address] [id number] [address] [place] [address], [place] [address] 14 Aug, 2013 [facility] [address] [id number] [address] [place] [address], [place] [address] 14 Aug, 2013 [facility] [address] [id number] [address] [place] [address], [place] [address] 07 Aug, 2013 [facility] [address] [id number] [address] [place] [address], [place] [address] 07 Aug, 2013 [facility] [address] [id number] [address] [place] [address], [place] [address] 06 Aug, 2013 [facility] [address] [id number] [address] [place] [address], [place] [address] 06 Aug, 2013 [facility] [address] [id number] [address] [place] [address], [place] [address] 04 Aug, 2013 [facility] [address] [id number] [address] [place] [address], [place] [address] 04 Aug, 2013 [facility] [address] [id number] [address] [place] [address], [place] [address] Aug, [facility] [address] [id number] [address] [place] [address], [place] [address] Jul, [facility] [address] [id number] [address] [place] [address], [place] [address] Jul, [facility] [address] [id number] [address] [place] [address], [place] [address] Jul, [facility] [address] [id number] [address] [place] [address], [place] [address] Jul, [facility] [address] [id number] [address] [place] [address], [place] [address] Jul, [facility] [address] [id number] [address] [place] [address], [place] [address] Jul, [facility] [address] [id number] [address] [place] [address], [place] [address] Jul, [facility] [address] [id number] [address] [place] [address], [place] [address] Jul, [facility] [address] [id number] [address] [place] [address], [place] [address] Jul, [facility] [address] [id number] [address] [place] [address], [place] [address] Jul, [facility] [address] [id number] [address] [place] [address], [place] [address] Jul, [facility] [address] [id number] [address] [place] [address], [place] [address] Jul, [facility] [address] [id number] [address] [place] [address], [place] [address] Jul, [facility] [address] [id number] [address] [place] [address], [place] [address] Jul, [facility] [address] [id number] [address] [place] [address], [place] [address] Jul, [facility] [address] [id number] [address] [place] [address], [place] [address] Jul, [facility] [address] [id number] [address] [place] [address], [place] [address] Jul, [facility] [address] [id number] [address] [place] [address], [place] [address] Jul, [facility] [address] [id number] [address] [place] [address], [place] [address] Jul, [facility] [address] [id number] [address] [place] [address], [place] [address] Jul, [facility] [address] [id number] [address] [place] [address], [place] [address] Jun, [facility] [address] [id number] [address] [place] [address], [place] [address] Jun, [facility] [address] [id number] [address] [place] [address], [place] [address] Jun, [facility] [address] [id number] [address] [place] [address], [place] [address] Jun, [facility] [address] [id number] [address] [place] [address], [place] [address] Jun, [facility] [address] [id number] [address] [place] [address], [place] [address] Jun, [facility] [address] [id number] [address] [place] [address], [place] [address] Jun, [facility] [address] [id number] [address] [place] [address], [place] [address] Jun, [facility] [address] [id number] [address] [place] [address], [place] [address] Jun, [facility] [address] [id number] [address] [place] [address], [place] [address] Jun, [facility] [address] [id number] [address] [place] [address], [place] [address] Jun, [facility] [address] [id number] [address] [place] [address], [place] [address] Jun, [facility] [address] [id number] [address] [place] [address], [place] [address] Jun, [facility] [address] [id number] [address] [place] [address], [place] [address] Jun, [facility] [address] [id number] [address] [place] [address], [place] [address] 20 Jun, 2013 [facility] [address] [id number] [address] [place] [address], [place] [address] 18 Jun, 2013 [facility] [address] [id number] [address] [place] [address], [place] [address] 18 Jun, 2013 [facility] [address] [id number] [address] [place] [address], [place] [address] 17 Jun, 2013 [facility] [address] [id number] [address] [place] [address], [place] [address] 17 Jun, 2013 [facility] [address] [id number] [address] [place] [address], [place] [address] 13 Jun, 2013 [facility] [address] [id number] [address] [place] [address], [place] [address] 12 Jun, 2013 [facility] [address] [id number] [address] [place] [address], [place] [address] 12 Jun, 2013 [facility] [address] [id number] [address] [place] [address], [place] [address] 09 Jun, 2013 [facility] [address] [id number] [address] [place] [address], [place] [address] 05 Jun, 2013 [facility] [address] [id number] [address] [place] [address], [place] [address] 05 Jun, 2013 [facility] [address] [id number] [address] [place] [address], [place] [address] 04 Jun, 2013 [facility] [address] [id number] [address] [place] [address], [place] [address] 04 Jun, 2013 [facility] [address] [id number] [address] [place] [address], [place] [address] 17 May, 2013 [facility] [address] [id number] [address] [place] [address], [place] [address] 17 May, 2013 [facility] [address] [id number] [address] [place] [address], [place] [address] May, [facility] [address] [id number] [address] [place] [address], [place] [address] May, [facility] [address] [id number] [address] [place] [address], [place] [address] May, [facility] [address] [id number] [address] [place] [address], [place] [address] May, [facility] [address] [id number] [address] [place] [address], [place] [address] Apr, [facility] [address] [id number] [address] [place] [address], [place] [address] Apr, [facility] [address] [id number] [address] [place] [address], [place] [address] Apr, [facility] [address] [id number] [address] [place] [address], [place] [address] Apr, [facility] [address] [id number] [address] [place] [address], [place] [address] Apr, [facility] [address] [id number] [address] [place] [address], [place] [address] Apr, [facility] [address] [id number] [address] [place] [address], [place] [address] Apr, [facility] [address] [id number] [address] [place] [address], [place] [address] Apr, [facility] [address] [id number] [address] [place] [address], [place] [address] 26 Mar, 2013 [facility] [address] [id number] [address] [place] [address], [place] [address] 24 Sep2012 [facility] [address] [id number] [address] [place] [address], [place] [address] 17 Mar, 2013 [facility] [address] [id number] [address] [place] [address], [place] [address] 17 Mar, 2013 [facility] [address] [id number] [address] [place] [address] [place] [address] 11 Mar, 2013 [facility] [address] [id number] [address] [place] [address], [place] [address] 10 Mar, 2013 [facility] [address] [id number] [address] [place] [address], [place] [address] 05 Mar, 2013 [facility] [address] [id number] [address] [place] [address], [place] [address] 04 Mar, 2013 [facility] [address] [id number] [address] [place] [address], [place] [address] 20 Jan, 2013 [facility] [address] [id number] [address] [place] [address], [place] [address] Jan, [facility] [address] [id number] [address] [place] [address], [place] [address] 14 Jan, 2013 [facility] [address] [id number] [address] [place] [address], [place] [address] Jan, [facility] [address] [id number] [address] [place] [address], [place] [address] Jan, [facility] [address] [id number] [address] [place] [address], [place] [address] Jan, [facility] [address] [id number] [address] [place] [address], [place] [address] Dec, [facility] [address] [id number] [address] [place] [address], [place] [address] Dec, [facility] [address] [id number] [address] [place] [address], [place] [address] Dec, [facility] [address] [id number] [address] [place] [address], [place] [address] Dec, [facility] [address] [id number] [address] [place] [address], [place] [address] Dec, [facility] [address] [id number] [address] [place] [address], [place] [address] 17 Dec, 2012 [facility] [address] [id number] [address] [place] [address], [place] [address] 16 Dec, 2012 [facility] [address] [id number] [address] [place] [address], [place] [address] 16 Dec, 2012 [facility] [address] [id number] [address] [place] [address], [place] [address] 15 Dec, 2012 [facility] [address] [id number] [address] [place] [address], [place] [address] 10 Dec, 2012 [facility] [address] [id number] [address] [place] [address], [place] [address] 28 Dec, 2012 [facility] [address] [id number] [address] [place] [address], [place] [address] Dec, [facility] [address] [id number] [address] [place] [address], [place] [address] Dec, [facility] [address] [id number] [address] [place] [address], [place] [address] Dec, [facility] [address] [id number] [address] [place] [address], [place] [address] Dec, [facility] [address] [id number] [address] [place] [address], [place] [address] Dec, [facility] [address] [id number] [address] [place] [address], [place] [address] October, [facility] [address] [id number] [address] [place] [address], [place] [address] October, [facility] [address] [id number] [address] [place] [address], [place] [address] October, [facility] [address] [id number] [address] [place] [address], [place] [address] October, [facility] [address] [id number] [address] [place] [address], [place] [address] October, [facility] [address] [id number] [address] [place] [address], [place] [address] October, [facility] [address] [id number] [address] [place] [address], [place] [address] October, [facility] [address] [id number] [address] [place] [address], [place] [address] Oct, [facility] [address] [id number] [address] [place] [address], [place] [address] Oct, [facility] [address] [id number] [address] [place] [address], [place] [address] Oct, [facility] [address] [id number] [address] [place] [address], [place] [address] Oct, [facility] [address] [id number] [address] [place] [address], [place] [address] Oct, [facility] [address] [id number] [address] [place] [address], [place] [address] Oct, [facility] [address] [id number] [address] [place] [address], [place] [address] Oct, [facility] [address] [id number] [address] [place] [address], [place] [address] 15 Oct, 2012 [facility] [address] [id number] [address] [place] [address], [place] [address] Oct, [facility] [address] [id number] [address] [place] [address], [place] [address] Oct, [facility] [address] [id number] [address] [place] [address], [place] [address] Oct, [facility] [address] [id number] [address] [place] [address], [place] [address] Oct, [facility] [address] [id number] [address] [place] [address], [place] [address] Aug, [facility] [address] [id number] [address] [place] [address], [place] [address] Aug, [facility] [address] [id number] [address] [place] [address], [place] [address] 12 Aug, 2012 [facility] [address] [id number] [address] [place] [address], [place] [address] 06 Aug, 2012 [facility] [address] [id number] [address] [place] [address], [place] [address] 05 Aug, 2012 [facility] [address] [id number] [address] [place] [address], [place] [address] 05 Aug, 2012 [facility] [address] [id number] [address] [place] [address], [place] [address] 20 Aug, 2012 [facility] [address] [id number] [address] [place] [address], [place] [address] 14 Aug, 2012 [facility] [address] [id number] [address] [place] [address], [place] [address] 12 Aug, 2012 [facility] [address] [id number] [address] [place] [address], [place] [address] Aug, [facility] [address] [id number] [address] [place] [address], [place] [address] Jul, [facility] [address] [id number] [address] [place] [address], [place] [address] Jul, [facility] [address] [id number] [address] [place] [address], [place] [address] Jul, [facility] [address] [id number] [address] [place] [address], [place] [address] Jun, [facility] [address] [id number] [address] [place] [address], [place] [address] Jun, [facility] [address] [id number] [address] [place] [address], [place] [address] Jun, [facility] [address] [id number] [address] [place] [address], [place] [address] Jun, [facility] [address] [id number] [address] [place] [address], [place] [address] Jun, [facility] [address] [id number] [address] [place] [address], [place] [address] 14 Jun, 2012 [facility] [address] [id number] [address] [place] [address], [place] [address] 14 Jun, 2012 [facility] [address] [id number] [address] [place] [address], [place] [address] 13 Jun, 2012 [facility] [address] [id number] [address] [place] [address], [place] [address] 13 Jun, 2012 [facility] [address] [id number] [address] [place] [address], [place] [address] 11 Jun, 2012 [facility] [address] [id number] [address] [place] [address], [place] [address] 11 Jun, 2012 [facility] [address] [id number] [address] [place] [address], [place] [address] 11 Jun, 2012 [facility] [address] [id number] [address] [place] [address], [place] [address] 11 Jun, 2012 [facility] [address] [id number] [address] [place] [address], [place] [address] 07 Jun, 2012 [facility] [address] [id number] [address] [place] [address], [place] [address] 07 Jun, 2012 [facility] [address] [id number] [address] [place] [address], [place] [address] 06 Jun, 2012 [facility] [address] [id number] [address] [place] [address], [place] [address] 06 Jun, 2012 [facility] [address] [id number] [address] [place] [address], [place] [address] Jun, [facility] [address] [id number] [address] [place] [address], [place] [address] 06 Jun, 2012 [facility] [address] [id number] [address] [place] [address], [place] [address] 05 Jun, 2012 [facility] [address] [id number] [address] [place] [address], [place] [address] Jun, [facility] [address] [id number] [address] [place] [address], [place] [address] Jun, [facility] [address] [id number] [address] [place] [address], [place] [address] Jun, [facility] [address] [id number] [address] [place] [address], [place] [address] May, [facility] [address] [id number] [address] [place] [address], [place] [address] May, [facility] [address] [id number] [address] [place] [address], [place] [address] May, [facility] [address] [id number] [address] [place] [address], [place] [address] May, [facility] [address] [id number] [address] [place] [address], [place] [address] May, [facility] [address] [id number] [address] [place] [address], [place] [address] May, [facility] [address] [id number] [address] [place] [address], [place] [address] May, [facility] [address] [id number] [address] [place] [address], [place] [address] May, [facility] [address] [id number] [address] [place] [address], [place] [address] Apr, [facility] [address] [id number] [address] [place] [address] Apr, [facility] [address] [id number] [address] [place] [address], [place] [address] Apr, [facility] [address] [id number] [address] [place] [address], [place] [address] Apr, [facility] [address] [id number] [address] [place] [address] Apr, [facility] [address] [id number] [address] [place] [address], [place] [address] Apr, [facility] [address] [id number] [address] [place] [address], [place] [address] Apr, [facility] [address] [id number] [address] [place] [address], [place] [address] Apr, [facility] [address] [id number] [address] [place] [address], [place] [address] Apr, [facility] [address] [id number] [address] [place] [address], [place] [address] Apr, [facility] [address] [id number] [address] [place] [address], [place] [id number] Apr, [facility] [address] [id number] [address] [place] [address], [place] [address] Apr, [facility] [address] [id number] [address] [place] [address], [place] [address] Mar, [facility] [address] [id number] [address] [place] [address], [place] [address] 18 Mar, 2012 [facility] [address] [id number] [address] [place] [address] Mar, [facility] [address] [id number] [address] [place] [address] Mar, [facility] [address] [id number] [address] [place] [id number] Mar, [facility] [address] [id number] [address] [place] [id number] Mar, [facility] [address] [id number] [address] [place] [address], [place] [address] Mar, [facility] [address] [id number] [address] [place] [address], [place] [address] Jan, [facility] [address] [id number] [address] [place] [phone] Jan, [facility] [address] [id number] [facility] [id number] Jan, [facility] [address] [id number] [facility] [id number] Jan, [facility] [address] [id number] [address] [place] [address], [place] [address] Jan, [facility] [address] [id number] [address] [place] [address], [place] [address] Jan, [facility] [address] [id number] [address] [place] [address], [place] [address] Jan, [facility] [address] [id number] [address] [place] [address], [place] [address] Jan, [facility] [address] [id number] [address] [place] [address], [place] [address] Jan, [facility] [address] [id number] [address] [place] [address], [place] [address] Jan, [facility] [address] [id number] [address] [place] [address], [place] [address] Jan, [facility] [address] [id number] [address] [place] [address], [place] [address] Dec, [facility] [address] [id number] [address] [place] [address], [place] [address] Dec, [facility] [address] [id number] [address] [place] [address], [place] [address] Dec, [facility] [address] [id number] [address] [place] [address], [place] [address] Dec, [facility] [address] [id number] [address] [place] [address], [place] [address] Dec, [facility] [address] [id number] [address] [place] [address], [place] [address] Dec, [facility] [address] [id number] [address] [place] [address] [place] [address] 18 Jan, 2012 [facility] [address] [id number] [address] [place] [address], [place] [address] 17 Jan, 2012 [facility] [address] [id number] [address] [place] [address], [place] [address] 16 Jan, 2012 [facility] [address] [id number] [address] [place] [address], [place] [address] 13 Jan, 2012 [facility] [address] [id number] [address] [place] [address], [place] [address] 13 Jan, 2012 [facility] [address] [id number] [address] [place] [address], [place] [address] 02 Jan, 2012 [facility] [address] [id number] [address] [place] [address], [place] [address] Dec, [facility] [address] [id number] [address] [place] [address], [place] [address] Dec, [facility] [address] [id number] [address] [place] [address], [place] [address] Dec, [facility] [address] [id number] [address] [place] [address], [place] [address] Dec, [facility] [address] [id number] [address] [place] [address], [place] [address] 15 Dec, 2011 [facility] [address] [id number] [address] [place] [address], [place] [address] Dec, [facility] [address] [id number] [address] [place] [address], [place] [address] Dec, [facility] [address] [id number] [address] [place] [address], [place] [address] October, [facility] [address] [id number] [address] [place] [address], [place] [address] October, [facility] [address] [id number] [address] [place] [address], [place] [address] October, [facility] [address] [id number] [address] [place] [address], [place] [address] October, [facility] [address] [id number] [address] [place] [address], [place] [address] October, [facility] [address] [id number] [address] [place] [address], [place] [address] October, [facility] [address] [id number] [address] [place] [address], [place] [address] Oct, [facility] [address] [id number] [address] [place] [address], [place] [address] 24 Oct, 2011 [facility] [address] [id number] [address] [place] [address], [place] [address] Oct, [facility] [address] [id number] [address] [place] [address], [place] [address] Oct, [facility] [address] [id number] [address] [place] [address], [place] [address] Oct, [facility] [address] [id number] [address] [place] [address], [place] [address] Oct, [facility] [address] [id number] [address] [place] [address], [place] [address] Oct, [facility] [address] [id number] [address] [place] [address], [place] [address] Aug, [facility] [address] [id number] [address] [place] [address], [place] [address] 29 Sep, 2011 [facility] [address] [id number] [address] [place] [address], [place] [address] 19 Sep, 2011 [facility] [address] [id number] [address] [place] [address], [place] [address] 13 Sep, 2011 [facility] [address] [id number] [address] [place] [address], [place] [address] 05 Sep, 2011 [facility] [address] [id number] [address] [place] [address], [place] [address] Aug, [facility] [address] [id number] [address] [place] [address], [place] [address] Aug, [facility] [address] [id number] [address] [place] [address], [place] [address] Aug, [facility] [address] [id number] [address] [place] [address], [place] [address] Aug, [facility] [address] [id number] [address] [place] [address], [place] [address] Jul, [facility] [address] [id number] [address] [place] [address], [place] [address] Jul, [facility] [address] [id number] [address] [place] [address], [place] [address] Jul, [facility] [address] [id number] [address] [place] [address], [place] [address] Jul, [facility] [address] [id number] [address] [place] [address], [place] [address] Jun, [facility] [address] [id number] [address] [place] [address], [place] [address] Jun, [facility] [address] [id number] [address] [place] [address], [place] [address] May, [facility] [address] [id number] [address] [place] [address], [place] [address] May, [facility] [address] [id number] [address] [place] [address], [place] [address] May, [facility] [address] [id number] [address] [place] [address], [place] [address] May, [facility] [address] [id number] [address] [place] [address], [place] [address] 07 May, 2011 [facility] [address] [id number] [address] [place] [address], [place] [address] Apr, [facility] [address] [id number] [address] [place] [address] Apr, [facility] [address] [id number] [address] [place] [address] Apr, [facility] [address] [id number] [address] [place] [address] Jan, [facility] [address] [id number] [address] [place] [address] Dec, [facility] [address] [id number] [address] [place] [address] October, [facility] [address] [id number] [address] [place] [address] Jun, [facility] [address] [id number] [address] [place] [address] Apr, [facility] [address] [id number] [address] [place] [address] Apr, [facility] [address] [id number] [address] [place] [address] Apr, [facility] [address] [id number] [address] [place] [address] Jun, IMMUNIZATIONS No Known Immunizations SOCIAL HISTORY Never Assessed REASON FOR VISIT [facility] PLAN OF CARE VITAL SIGNS MEDICATIONS Unknown Medications RESULTS No Results PROCEDURES No Known procedures INSTRUCTIONS MEDICATIONS ADMINISTERED No Known Medications MEDICAL (GENERAL) HISTORY Type Description Date Medical History Psychiatric disorder Medical History Hard of hearing Surgical History Neofibrous tumor Surgical History back injection Hospitalization History Intestinal blockage Hospitalization History past psychiatric hospitalizations x2
--- OUTSIDE RECORDS SUMMARY | 2020-01-25 13:03 | XMS REPORT ---
Author Author Ana Mayer Doctor Organization [facility] Address Unknown Phone Unavailable Care Team Providers Care C++ Quant Developer Name Role Phone Migration, Doctor Unavailable Unavailable PROBLEMS Type Condition ICD9-CM Code AVJ24-TB Code Onset Dates Condition S tatus SNOMED Code Problem Attention deficit R41.840 Active 76 265409 Problem Chronic hepatitis C without hepatic coma B18.2 Active 058952893 Problem Cannabis abuse F12.10 Active 51181 009 Problem Bipolar disorder, in partial remission, most rec ent episode hypomanic F31.71 Active 329688690 Problem Attention deficit hyperactivity disorder (ADHD), combi luciano type F90.2 Active 01955331 Problem Bipolar 1 disorder F31.9 Active 3 28022266 Problem H/O laminectomy Z98.89 Active 1616 93346 Problem Other chronic pain G89.29 Active 8 0468791 Problem Anxiety disorder, unspecified type F41.9 Active [id number] ALLERGIES No Information ENCOUNTERS Encounter Location Date Diagnosis [facility] [address] [facility] [id number] [address] [place] [address] Oct, [facility] [address] [facility] [id number] [address] [place] [address] Aug, Bipolar disorder, in partial remission, most recent episode hypomanic F31.71 ; Attention deficit hyperactivity disorder (ADHD), combined type F90.2 and Anxiety disorder, unspecified type F41.9 [facility] [address] [facility] [id number] [address] [place] [address] Aug, [facility] [address] [facility] [facility] [id number] [address] [place] [address] Aug, Bipolar disorder, in partial remission, most recent episode hypomanic F31.71 [facility] [address] [facility] [facility] [id number] [address] [place] [address] Aug, [facility] [address] [id number] [address] [place] [address] Aug, Bipolar disorder, in partial remission, most recent episode hypomanic F31.71 [facility] [address] [id number] [address] [place] [address] Aug, Bipolar disorder, in partial remission, most recent episode hypomanic F31.71 ; Attention deficit hyperactivity disorder (ADHD), combined type F90.2 and Anxiety disorder, unspecified type F41.9 [facility] [address] [id number] [address] [place] [address] Aug, Low back pain M54.5 and Pain in left wrist M25.532 [facility] [address] [id number] [address] [place] [address] Aug, [facility] [address] [id number] [address] [place] [address] Jun, [facility] [address] [facility] [id number] [address] [place] [address] Apr, Bipolar disorder, in partial remission, most recent episode hypomanic F31.71 [facility] [address] [id number] [address] [place] [address] Apr, [facility] [address] [id number] [address] [place] [address] Apr, Bipolar disorder, in partial remission, most recent episode hypomanic F31.71 ; Attention deficit hyperactivity disorder (ADHD), combined type F90.2 ; Anxiety disorder, unspecified type F41.9 and Other correction (current) 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 Z79.899 [facility] [address] [id number] [address] [place] [address] Apr, Bipolar disorder, in partial remission, most recent episode hypomanic F31.71 [facility] [address] [id number] [address] [place] [address] Apr, Bipolar disorder, in partial remission, most recent episode hypomanic F31.71 [facility] [address] [facility] [facility] [id number] [address] [place] [address] Mar, [facility] [address] [id number] [address] [place] [address] Mar, Bipolar disorder, in partial remission, most recent episode hypomanic F31.71 ; Encounter for immunization Z23 and Low back pain M54.5 [facility] [address] [id number] [address] [place] [address] Mar, Bipolar disorder, in partial remission, most recent episode hypomanic F31.71 [facility] [address] [id number] [address] [place] [address] Mar, Bipolar disorder, in partial remission, most recent episode hypomanic F31.71 [facility] [address] [facility] [facility] [id number] [address] [place] [address] Jan, Bipolar disorder, in partial remission, most recent episode hypomanic F31.71 [facility] [address] [facility] [id number] [address] [place] [address] Jan, Bipolar disorder, in partial remission, most recent episode hypomanic F31.71 [facility] [address] [facility] [id number] [address] [place] [address] Dec, Bipolar disorder, in partial remission, most recent episode hypomanic F31.71 [facility] [address] [facility] [id number] [address] [place] [address] Dec, Bipolar disorder, in partial remission, most recent episode hypomanic F31.71 ; Attention deficit hyperactivity disorder (ADHD), combined type F90.2 ; Anxiety disorder, unspecified type F41.9 and Other correction (current) 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 Z79.899 [facility] [address] [facility] [facility] [id number] [address] [place] [address] Dec, Bipolar disorder, in partial remission, most recent episode hypomanic F31.71 [facility] [address] [facility] [id number] [address] [place] [address] Dec, Bipolar disorder, in partial remission, most recent episode hypomanic F31.71 [facility] [address] [id number] [address] [place] [address] October, Bipolar disorder, in partial remission, most recent episode hypomanic F31.71 [facility] [address] [id number] [address] [place] [address] October, [facility] [address] [id number] [address] [place] [address] October, [facility] [address] [id number] [address] [place] [address] Oct, Bipolar disorder, in partial remission, most recent episode hypomanic F31.71 ; Attention deficit hyperactivity disorder (ADHD), combined type F90.2 ; Anxiety disorder, unspecified type F41.9 and Encounter for drug screening Z02.83 [facility] [address] [id number] [address] [place] [address] Oct, Bipolar disorder, in partial remission, most recent episode hypomanic F31.71 [facility] [address] [id number] [address] [place] [address] Oct, Bipolar disorder, in partial remission, most recent episode hypomanic F31.71 [facility] [address] [id number] [address] [place] [address] Aug, Bipolar disorder, in partial remission, most recent episode hypomanic F31.71 [facility] [address] [id number] [address] [place] [address] Aug, Bipolar disorder, in partial remission, most recent episode hypomanic F31.71 [facility] [address] [id number] [address] [place] [address] Aug, Bipolar disorder, in partial remission, most recent episode hypomanic F31.71 [facility] [address] [id number] [address] [place] [address] Jul, Bipolar disorder, in partial remission, most recent episode hypomanic F31.71 ; Attention deficit hyperactivity disorder (ADHD), combined type F90.2 and Anxiety disorder, unspecified type F41.9 [facility] [address] [id number] [address] [place] [address] Jul, Bipolar disorder, in partial remission, most recent episode hypomanic F31.71 [facility] [address] [id number] [address] [place] [address] Jun, Bipolar disorder, in partial remission, most recent episode hypomanic F31.71 [facility] [address] [id number] [address] [place] [address] May, Bipolar disorder, in partial remission, most recent episode hypomanic F31.71 [facility] [address] [facility] [id number] [address] [place] [address] May, Bipolar disorder, in partial remission, most recent episode hypomanic F31.71 [facility] [address] [facility] [id number] [address] [place] [address] Apr, [facility] [address] [id number] [address] [place] [address] Apr, Bipolar disorder, in partial remission, most recent episode hypomanic F31.71 ; Attention deficit hyperactivity disorder (ADHD), combined type F90.2 ; Anxiety disorder, unspecified type F41.9 [address] Cann[address] F12.10 [facility] [address] [id number] [address] [place] [address] Apr, Attention deficit hyperactiv ity disorder (ADHD), combined type F90.2 [facility] [address] [id number] [address] [place] [address] Mar, Attention deficit hyperactiv ity disorder (ADHD), combined type F90.2 [facility] [address] [facility] [facility] [id number] [address] [place] [address] Mar, Anxiety disorder, unspecifie d type F41.9 [facility] [address] [facility] [id number] [address] [place] [address] Jan, Attention deficit hyperactiv ity disorder (ADHD), combined type F90.2 [facility] [address] [facility] [id number] [address] [place] [address] Jan, Anxiety disorder, unspecifie d type F41.9 [facility] [address] [facility] [id number] [address] [place] [address] Jan, Other chronic pain G89.29 ; Chronic hepatitis C without hepatic coma B18.2 and Bipolar [address] [facility] [address] [facility] [id number] [address] [place] [address] Dec, Attention deficit hyperactiv ity disorder (ADHD), combined type F90.2 [facility] [address] [facility] [facility] [id number] [address] [place] [address] Dec, Bipolar disorder, in partial remission, most recent episode hypomanic F31.71 ; Attention deficit hyperactivity disorder (ADHD), combined type F90.2 and Anxiety disorder, unspecified type F41.9 [facility] [address] [facility] [facility] [id number] [address] [place] [address] Dec, Bipolar disorder, in partial remission, most recent episode hypomanic F31.71 ; Attention deficit hyperactivity disorder (ADHD), combined type F90.2 and Anxiety disorder, unspecified type F41.9 [facility] [address] [facility] [facility] [id number] [address] [place] [address] Dec, Bipolar 1 disorder F31.9 and Attention deficit R41.840 [facility] [address] [facility] [facility] [id number] [address] [place] [address] Oct, Other chronic pain G89.29 ; Alopecia L65.9 and Screening, lipid Z13.220 [facility] [address] [facility] [facility] [id number] [address] [place] [address] Oct, [facility] [address] [facility] [id number] [address] [place] [address] Aug, [facility] [address] [facility] [facility] [id number] [address] [place] [address] Aug, Eustachian tube dysfunction, right H69.81 ; Vertigo R42 and Other chronic pain G89.29 [facility] [address] [id number] [address] [place] [address] Aug, [facility] [address] [id number] [address] [place] [address] Jun, [facility] [address] [id number] [address] [place] [address] Jun, Low back pain M54.5 and Othe r chronic pain G89.29 [facility] [address] [id number] [address] [place] [address] Jun, [facility] [address] [id number] [address] [place] [address] May, [facility] [address] [id number] [address] [place] [address] Jan, [facility] [address] [id number] [address] [place] [address] Dec, [facility] [address] [id number] [address] [place] [address] Dec, [facility] [address] [id number] [address] [place] [address] Jun, [facility] [address] [id number] [address] [place] [address] Apr, Eustachian tube dysfunction, unspecified laterality H69.80 ; Hot flashes N95.1 and Encounter for immunization Z23 [facility] [address] [id number] [address] [place] [address] Jan, [facility] [address] [id number] [address] [place] [address] Jan, [facility] [address] [id number] [address] [place] [address] Jan, [facility] [address] [id number] [address] [place] [address] Jan, [facility] [address] [id number] [address] [place] [address] Jan, Encounter to establish care V65.8 ; Bipolar 1 disorder 296.7 ; Abdominal pain 789.00 ; Constipation 564.00 ; Hard of hearing 389.[address] [facility] [address] [id number] [address] [place] [address] Dec, [facility] [address] [id number] [address] [place] [address] October, [facility] [address] [id number] [address] [place] [address] October, [facility] [address] [id number] [address] [place] [address] Oct, [facility] [address] [id number] [address] [place] [address] Oct, [facility] [address] [id number] [address] [place] [address] Oct, [facility] [address] [id number] [address] [place] [address] Aug, [facility] [address] [id number] [address] [place] [address] Aug, [facility] [address] [id number] [address] [place] [address] Aug, [facility] [address] [id number] [address] [place] [address] Aug, [facility] [address] [id number] [address] [place] [address] Aug, [facility] [address] [id number] [address] [place] [address] Aug, [facility] [address] [id number] [address] [place] [address], [place] [address] Aug, 2014 [facility] [address] [id number] [address] [place] [address], [place] [address] Aug, 2014 [facility] [address] [id number] [address] [place] [address], [place] [address] Aug, 2014 [facility] [address] [id number] [address] [place] [address], [place] [address] Aug, 2014 [facility] [address] [id number] [address] [place] [address], [place] [address] Aug, 2014 [facility] [address] [id number] [address] [place] [address], [place] [address] Aug, 2014 [facility] [address] [id number] [address] [place] [address], [place] [address] Aug, 2014 [facility] [address] [id number] [address] [place] [address], [place] [address] Aug, 2014 [facility] [address] [id number] [address] [place] [address], [place] [address] Aug, [facility] [address] [id number] [address] [place] [address], [place] [address] Jul, [facility] [address] [id number] [address] [place] [address], [place] [address] Jul, [facility] [address] [id number] [address] [place] [address], [place] [address] Jul, [facility] [address] [id number] [address] [place] [address], [place] [address] Jul, [facility] [address] [id number] [address] [place] [address], [place] [address] Jul, [facility] [address] [id number] [address] [place] [address], [place] [address] Jul, [facility] [address] [id number] [address] [place] [address], [place] [address] Jul, [facility] [address] [id number] [address] [place] [address], [place] [address] Jul, [facility] [address] [id number] [address] [place] [address], [place] [address] Jun, [facility] [address] [id number] [address] [place] [address], [place] [address] Jun, [facility] [address] [id number] [address] [place] [address], [place] [address] Jun, [facility] [address] [id number] [address] [place] [address], [place] [address] Jun, [facility] [address] [id number] [address] [place] [address], [place] [address] Jun, [facility] [address] [id number] [address] [place] [address], [place] [address] Jun, [facility] [address] [id number] [address] [place] [address], [place] [address] Jun, [facility] [address] [id number] [address] [place] [address], [place] [address] Jun, [facility] [address] [id number] [address] [place] [address], [place] [address] Jun, [facility] [address] [id number] [address] [place] [address], [place] [address] Jun, [facility] [address] [id number] [address] [place] [address], [place] [address] Jun, [facility] [address] [id number] [address] [place] [address], [place] [address] May, [facility] [address] [id number] [address] [place] [address], [place] [address] May, [facility] [address] [id number] [address] [place] [address], [place] [address] May, [facility] [address] [id number] [address] [place] [address], [place] [address] May, [facility] [address] [id number] [address] [place] [address], [place] [address] May, [facility] [address] [id number] [address] [place] [address], [place] [address] May, [facility] [address] [id number] [address] [place] [address], [place] [address] May, [facility] [address] [id number] [address] [place] [address], [place] [address] Apr, [facility] [address] [id number] [address] [place] [address], [place] [address] Apr, [facility] [address] [id number] [address] [place] [address], [place] [address] Apr, [facility] [address] [id number] [address] [place] [address], [place] [address] Apr, [facility] [address] [id number] [address] [place] [address], [place] [address] Apr, [facility] [address] [id number] [address] [place] [address], [place] [address] Apr, [facility] [address] [id number] [address] [place] [address], [place] [address] Mar, [facility] [address] [id number] [address] [place] [address], [place] [address] 29 Mar, 2013 [facility] [address] [id number] [address] [place] [address], [place] [address] 10 Mar, 2013 [facility] [address] [id number] [address] [place] [address], [place] [address] 10 Mar, 2013 [facility] [address] [id number] [address] [place] [address], [place] [address] Mar, 2013 [facility] [address] [id number] [address] [place] [address], [place] [address] Mar, [facility] [address] [id number] [address] [place] [address], [place] [address] Jan, [facility] [address] [id number] [address] [place] [address], [place] [address] Jan, [facility] [address] [id number] [address] [place] [address], [place] [address] Jan, [facility] [address] [id number] [address] [place] [address], [place] [address] Jan, [facility] [address] [id number] [address] [place] [address], [place] [address] Dec, [facility] [address] [id number] [address] [place] [address], [place] [address] Dec, [facility] [address] [id number] [address] [place] [address], [place] [address] Dec, [facility] [address] [id number] [address] [place] [address], [place] [address] Dec, [facility] [address] [id number] [address] [place] [address], [place] [address] Dec, [facility] [address] [id number] [address] [place] [address], [place] [address] Dec, [facility] [address] [id number] [address] [place] [address], [place] [address] Dec, [facility] [address] [id number] [address] [place] [address], [place] [address] Dec, [facility] [address] [id number] [address] [place] [address], [place] [address] Dec, [facility] [address] [id number] [address] [place] [address], [place] [address] Dec, [facility] [address] [id number] [address] [place] [address], [place] [address] Dec, [facility] [address] [id number] [address] [place] [address], [place] [address] Dec, [facility] [address] [id number] [address] [place] [address], [place] [address] October, [facility] [address] [id number] [address] [place] [address], [place] [address] October, [facility] [address] [id number] [address] [place] [address], [place] [address] October, [facility] [address] [id number] [address] [place] [address], [place] [address] October, [facility] [address] [id number] [address] [place] [address], [place] [address] October, [facility] [address] [id number] [address] [place] [address], [place] [address] October, [facility] [address] [id number] [address] [place] [address], [place] [address] Oct, [facility] [address] [id number] [address] [place] [address], [place] [address] Oct, [facility] [address] [id number] [address] [place] [address], [place] [address] Oct, [facility] [address] [id number] [address] [place] [address], [place] [address] Oct, [facility] [address] [id number] [address] [place] [address], [place] [address] Oct, [facility] [address] [id number] [address] [place] [address], [place] [address] Oct, [facility] [address] [id number] [address] [place] [address], [place] [address] Oct, [facility] [address] [id number] [address] [place] [address], [place] [address] Oct, [facility] [address] [id number] [address] [place] [address], [place] [address] Oct, [facility] [address] [id number] [facility] [place] [address] 09 Oct, 2013 [facility] [address] [id number] [facility] [place] [address] Oct, [facility] [address] [id number] [address] [place] [address], [place] [address] Oct, [facility] [address] [id number] [address] [place] [address], [place] [address] Aug, [facility] [address] [id number] [address] [place] [address], [place] [address] Aug, [facility] [address] [id number] [address] [place] [address], [place] [address] Aug, [facility] [address] [id number] [address] [place] [address], [place] [address] Aug, [facility] [address] [id number] [address] [place] [address], [place] [address] Aug, [facility] [address] [id number] [address] [place] [address], [place] [address] 05 Aug, 2013 [facility] [address] [id number] [address] [place] [address], [place] [address] Aug, [facility] [address] [id number] [address] [place] [address], [place] [address] Aug, [facility] [address] [id number] [address] [place] [address], [place] [address] Aug, [facility] [address] [id number] [address] [place] [address], [place] [address] Aug, [facility] [address] [id number] [address] [place] [address], [place] [address] Aug, [facility] [address] [id number] [address] [place] [address], [place] [address] Aug, [facility] [address] [id number] [address] [place] [address], [place] [address] Aug, [facility] [address] [id number] [address] [place] [address], [place] [address] 20 Aug, 2013 [facility] [address] [id number] [address] [place] [address], [place] [address] 14 Aug, 2013 [facility] [address] [id number] [address] [place] [address], [place] [address] 14 Aug, 2013 [facility] [address] [id number] [address] [place] [address], [place] [address] 14 Aug, 2013 [facility] [address] [id number] [address] [place] [address], [place] [address] 14 Aug, 2013 [facility] [address] [id number] [address] [place] [address], [place] [address] 07 Aug, 2013 [facility] [address] [id number] [address] [place] [address], [place] [address] 07 Aug, 2013 [facility] [address] [id number] [address] [place] [address], [place] [address] 06 Aug, 2013 [facility] [address] [id number] [address] [place] [address], [place] [address] 06 Aug, 2013 [facility] [address] [id number] [address] [place] [address], [place] [address] 04 Aug, 2013 [facility] [address] [id number] [address] [place] [address], [place] [address] 04 Aug, 2013 [facility] [address] [id number] [address] [place] [address], [place] [address] Aug, [facility] [address] [id number] [address] [place] [address], [place] [address] Jul, [facility] [address] [id number] [address] [place] [address], [place] [address] Jul, [facility] [address] [id number] [address] [place] [address], [place] [address] Jul, [facility] [address] [id number] [address] [place] [address], [place] [address] Jul, [facility] [address] [id number] [address] [place] [address], [place] [address] Jul, [facility] [address] [id number] [address] [place] [address], [place] [address] Jul, [facility] [address] [id number] [address] [place] [address], [place] [address] Jul, [facility] [address] [id number] [address] [place] [address], [place] [address] Jul, [facility] [address] [id number] [address] [place] [address], [place] [address] Jul, [facility] [address] [id number] [address] [place] [address], [place] [address] Jul, [facility] [address] [id number] [address] [place] [address], [place] [address] Jul, [facility] [address] [id number] [address] [place] [address], [place] [address] Jul, [facility] [address] [id number] [address] [place] [address], [place] [address] Jul, [facility] [address] [id number] [address] [place] [address], [place] [address] Jul, [facility] [address] [id number] [address] [place] [address], [place] [address] Jul, [facility] [address] [id number] [address] [place] [address], [place] [address] Jul, [facility] [address] [id number] [address] [place] [address], [place] [address] Jul, [facility] [address] [id number] [address] [place] [address], [place] [address] Jul, [facility] [address] [id number] [address] [place] [address], [place] [address] Jul, [facility] [address] [id number] [address] [place] [address], [place] [address] Jul, [facility] [address] [id number] [address] [place] [address], [place] [address] Jun, [facility] [address] [id number] [address] [place] [address], [place] [address] Jun, [facility] [address] [id number] [address] [place] [address], [place] [address] Jun, [facility] [address] [id number] [address] [place] [address], [place] [address] Jun, [facility] [address] [id number] [address] [place] [address], [place] [address] Jun, [facility] [address] [id number] [address] [place] [address], [place] [address] Jun, [facility] [address] [id number] [address] [place] [address], [place] [address] Jun, [facility] [address] [id number] [address] [place] [address], [place] [address] Jun, [facility] [address] [id number] [address] [place] [address], [place] [address] Jun, [facility] [address] [id number] [address] [place] [address], [place] [address] Jun, [facility] [address] [id number] [address] [place] [address], [place] [address] Jun, [facility] [address] [id number] [address] [place] [address], [place] [address] Jun, [facility] [address] [id number] [address] [place] [address], [place] [address] Jun, [facility] [address] [id number] [address] [place] [address], [place] [address] Jun, [facility] [address] [id number] [address] [place] [address], [place] [address] 20 Jun, 2013 [facility] [address] [id number] [address] [place] [address], [place] [address] 18 Jun, 2013 [facility] [address] [id number] [address] [place] [address], [place] [address] 18 Jun, 2013 [facility] [address] [id number] [address] [place] [address], [place] [address] 17 Jun, 2013 [facility] [address] [id number] [address] [place] [address], [place] [address] 17 Jun, 2013 [facility] [address] [id number] [address] [place] [address], [place] [address] 13 Jun, 2013 [facility] [address] [id number] [address] [place] [address], [place] [address] 12 Jun, 2013 [facility] [address] [id number] [address] [place] [address], [place] [address] 12 Jun, 2013 [facility] [address] [id number] [address] [place] [address], [place] [address] 09 Jun, 2013 [facility] [address] [id number] [address] [place] [address], [place] [address] 05 Jun, 2013 [facility] [address] [id number] [address] [place] [address], [place] [address] 05 Jun, 2013 [facility] [address] [id number] [address] [place] [address], [place] [address] 04 Jun, 2013 [facility] [address] [id number] [address] [place] [address], [place] [address] 04 Jun, 2013 [facility] [address] [id number] [address] [place] [address], [place] [address] 17 May, 2013 [facility] [address] [id number] [address] [place] [address], [place] [address] 17 May, 2013 [facility] [address] [id number] [address] [place] [address], [place] [address] May, [facility] [address] [id number] [address] [place] [address], [place] [address] May, [facility] [address] [id number] [address] [place] [address], [place] [address] May, [facility] [address] [id number] [address] [place] [address], [place] [address] May, [facility] [address] [id number] [address] [place] [address], [place] [address] Apr, [facility] [address] [id number] [address] [place] [address], [place] [address] Apr, [facility] [address] [id number] [address] [place] [address], [place] [address] Apr, [facility] [address] [id number] [address] [place] [address], [place] [address] Apr, [facility] [address] [id number] [address] [place] [address], [place] [address] Apr, [facility] [address] [id number] [address] [place] [address], [place] [address] Apr, [facility] [address] [id number] [address] [place] [address], [place] [address] Apr, [facility] [address] [id number] [address] [place] [address], [place] [address] Apr, [facility] [address] [id number] [address] [place] [address], [place] [address] 26 Mar, 2013 [facility] [address] [id number] [address] [place] [address] [address] 24 Sep2012 [facility] [address] [id number] [address] [place] [address], [place] [address] 17 Mar, 2013 [facility] [address] [id number] [address] [place] [address], [place] [address] 17 Mar, 2013 [facility] [address] [id number] [address] [place] [address] [place] [address] 11 Mar, 2013 [facility] [address] [id number] [address] [place] [address], [place] [address] 10 Mar, 2013 [facility] [address] [id number] [address] [place] [address], [place] [address] 05 Mar, 2013 [facility] [address] [id number] [address] [place] [address], [place] [address] 04 Mar, 2013 [facility] [address] [id number] [address] [place] [address], [place] [address] 20 Jan, 2013 [facility] [address] [id number] [address] [place] [address], [place] [address] Jan, [facility] [address] [id number] [address] [place] [address], [place] [address] 14 Jan, 2013 [facility] [address] [id number] [address] [place] [address], [place] [address] Jan, [facility] [address] [id number] [address] [place] [address], [place] [address] Jan, [facility] [address] [id number] [address] [place] [address], [place] [address] Jan, [facility] [address] [id number] [address] [place] [address], [place] [address] Dec, [facility] [address] [id number] [address] [place] [address], [place] [address] Dec, [facility] [address] [id number] [address] [place] [address], [place] [address] Dec, [facility] [address] [id number] [address] [place] [address], [place] [address] Dec, [facility] [address] [id number] [address] [place] [address], [place] [address] Dec, [facility] [address] [id number] [address] [place] [address], [place] [address] 17 Dec, 2012 [facility] [address] [id number] [address] [place] [address], [place] [address] 16 Dec, 2012 [facility] [address] [id number] [address] [place] [address], [place] [address] 16 Dec, 2012 [facility] [address] [id number] [address] [place] [address], [place] [address] 15 Dec, 2012 [facility] [address] [id number] [address] [place] [address], [place] [address] 10 Dec, 2012 [facility] [address] [id number] [address] [place] [address], [place] [address] 28 Dec, 2012 [facility] [address] [id number] [address] [place] [address], [place] [address] Dec, [facility] [address] [id number] [address] [place] [address], [place] [address] Dec, [facility] [address] [id number] [address] [place] [address], [place] [address] Dec, [facility] [address] [id number] [address] [place] [address], [place] [address] Dec, [facility] [address] [id number] [address] [place] [address], [place] [address] Dec, [facility] [address] [id number] [address] [place] [address], [place] [address] October, [facility] [address] [id number] [address] [place] [address], [place] [address] October, [facility] [address] [id number] [address] [place] [address], [place] [address] October, [facility] [address] [id number] [address] [place] [address], [place] [address] October, [facility] [address] [id number] [address] [place] [address], [place] [address] October, [facility] [address] [id number] [address] [place] [address], [place] [address] October, [facility] [address] [id number] [address] [place] [address], [place] [address] October, [facility] [address] [id number] [address] [place] [address], [place] [address] Oct, [facility] [address] [id number] [address] [place] [address], [place] [address] Oct, [facility] [address] [id number] [address] [place] [address], [place] [address] Oct, [facility] [address] [id number] [address] [place] [address], [place] [address] Oct, [facility] [address] [id number] [address] [place] [address], [place] [address] Oct, [facility] [address] [id number] [address] [place] [address], [place] [address] Oct, [facility] [address] [id number] [address] [place] [address], [place] [address] Oct, [facility] [address] [id number] [address] [place] [address], [place] [address] 15 Oct, 2012 [facility] [address] [id number] [address] [place] [address], [place] [address] Oct, [facility] [address] [id number] [address] [place] [address], [place] [address] Oct, [facility] [address] [id number] [address] [place] [address], [place] [address] Oct, [facility] [address] [id number] [address] [place] [address], [place] [address] Oct, [facility] [address] [id number] [address] [place] [address], [place] [address] Aug, [facility] [address] [id number] [address] [place] [address], [place] [address] Aug, [facility] [address] [id number] [address] [place] [address], [place] [address] 12 Aug, 2012 [facility] [address] [id number] [address] [place] [address], [place] [address] 06 Aug, 2012 [facility] [address] [id number] [address] [place] [address], [place] [address] 05 Aug, 2012 [facility] [address] [id number] [address] [place] [address], [place] [address] 05 Aug, 2012 [facility] [address] [id number] [address] [place] [address], [place] [address] 20 Aug, 2012 [facility] [address] [id number] [address] [place] [address], [place] [address] 14 Aug, 2012 [facility] [address] [id number] [address] [place] [address], [place] [address] 12 Aug, 2012 [facility] [address] [id number] [address] [place] [address], [place] [address] Aug, [facility] [address] [id number] [address] [place] [address], [place] [address] Jul, [facility] [address] [id number] [address] [place] [address], [place] [address] Jul, [facility] [address] [id number] [address] [place] [address], [place] [address] Jul, [facility] [address] [id number] [address] [place] [address], [place] [address] Jun, [facility] [address] [id number] [address] [place] [address], [place] [address] Jun, [facility] [address] [id number] [address] [place] [address], [place] [address] Jun, [facility] [address] [id number] [address] [place] [address], [place] [address] Jun, [facility] [address] [id number] [address] [place] [address], [place] [address] Jun, [facility] [address] [id number] [address] [place] [address], [place] [address] 14 Jun, 2012 [facility] [address] [id number] [address] [place] [address], [place] [address] 14 Jun, 2012 [facility] [address] [id number] [address] [place] [address], [place] [address] 13 Jun, 2012 [facility] [address] [id number] [address] [place] [address], [place] [address] 13 Jun, 2012 [facility] [address] [id number] [address] [place] [address], [place] [address] 11 Jun, 2012 [facility] [address] [id number] [address] [place] [address], [place] [address] 11 Jun, 2012 [facility] [address] [id number] [address] [place] [address], [place] [address] 11 Jun, 2012 [facility] [address] [id number] [address] [place] [address], [place] [address] 11 Jun, 2012 [facility] [address] [id number] [address] [place] [address], [place] [address] 07 Jun, 2012 [facility] [address] [id number] [address] [place] [address], [place] [address] 07 Jun, 2012 [facility] [address] [id number] [address] [place] [address], [place] [address] 06 Jun, 2012 [facility] [address] [id number] [address] [place] [address], [place] [address] 06 Jun, 2012 [facility] [address] [id number] [address] [place] [address], [place] [address] Jun, [facility] [address] [id number] [address] [place] [address], [place] [address] 06 Jun, 2012 [facility] [address] [id number] [address] [place] [address], [place] [address] 05 Jun, 2012 [facility] [address] [id number] [address] [place] [address], [place] [address] Jun, [facility] [address] [id number] [address] [place] [address], [place] [address] Jun, [facility] [address] [id number] [address] [place] [address], [place] [address] Jun, [facility] [address] [id number] [address] [place] [address], [place] [address] May, [facility] [address] [id number] [address] [place] [address], [place] [address] May, [facility] [address] [id number] [address] [place] [address], [place] [address] May, [facility] [address] [id number] [address] [place] [address], [place] [address] May, [facility] [address] [id number] [address] [place] [address], [place] [address] May, [facility] [address] [id number] [address] [place] [address], [place] [address] May, [facility] [address] [id number] [address] [place] [address], [place] [address] May, [facility] [address] [id number] [address] [place] [address], [place] [address] May, [facility] [address] [id number] [address] [place] [address], [place] [address] Apr, [facility] [address] [id number] [address] [place] [address] Apr, [facility] [address] [id number] [address] [place] [address], [place] [address] Apr, [facility] [address] [id number] [address] [place] [address], [place] [address] Apr, [facility] [address] [id number] [address] [place] [address] Apr, [facility] [address] [id number] [address] [place] [address], [place] [address] Apr, [facility] [address] [id number] [address] [place] [address], [place] [address] Apr, [facility] [address] [id number] [address] [place] [address], [place] [address] Apr, [facility] [address] [id number] [address] [place] [address], [place] [address] Apr, [facility] [address] [id number] [address] [place] [address], [place] [address] Apr, [facility] [address] [id number] [address] [place] [address], [place] [address] Apr, [facility] [address] [id number] [address] [place] [address], [place] [address] Apr, [facility] [address] [id number] [address] [place] [address], [place] [address] Mar, [facility] [address] [id number] [address] [place] [address], [place] [address] 18 Mar, 2012 [facility] [address] [id number] [address] [place] [address] Mar, [facility] [address] [id number] [address] [place] [address] Mar, [facility] [address] [id number] [address] [place] [id number] Mar, [facility] [address] [id number] [address] [place] [id number] Mar, [facility] [address] [id number] [address] [place] [address], [place] [address] Mar, [facility] [address] [id number] [address] [place] [address], [place] [address] Jan, [facility] [address] [id number] [address] [place] [address] Jan, [facility] [address] [id number] [facility] [place] [id number] Jan, [facility] [address] [id number] [facility] [id number] Jan, [facility] [address] [id number] [address] [place] [address], [place] [address] Jan, [facility] [address] [id number] [address] [place] [address], [place] [address] Jan, [facility] [address] [id number] [address] [place] [address], [place] [address] Jan, [facility] [address] [id number] [address] [place] [address], [place] [address] Jan, [facility] [address] [id number] [address] [place] [address], [place] [address] Jan, [facility] [address] [id number] [address] [place] [address], [place] [address] Jan, [facility] [address] [id number] [address] [place] [address], [place] [address] Jan, [facility] [address] [id number] [address] [place] [address], [place] [address] Dec, [facility] [address] [id number] [address] [place] [address], [place] [address] Dec, [facility] [address] [id number] [address] [place] [address], [place] [address] Dec, [facility] [address] [id number] [address] [place] [address], [place] [address] Dec, [facility] [address] [id number] [address] [place] [address], [place] [address] Dec, [facility] [address] [id number] [address] [place] [address], [place] [address] Dec, [facility] [address] [id number] [address] [place] [address] [place] [address] 18 Jan, 2012 [facility] [address] [id number] [address] [place] [address], [place] [address] 17 Jan, 2012 [facility] [address] [id number] [address] [place] [address], [place] [address] 16 Jan, 2012 [facility] [address] [id number] [address] [place] [address], [place] [address] 13 Jan, 2012 [facility] [address] [id number] [address] [place] [address], [place] [address] 13 Jan, 2012 [facility] [address] [id number] [address] [place] [address], [place] [address] 02 Jan, 2012 [facility] [address] [id number] [address] [place] [address], [place] [address] Dec, [facility] [address] [id number] [address] [place] [address], [place] [address] Dec, [facility] [address] [id number] [address] [place] [address], [place] [address] Dec, [facility] [address] [id number] [address] [place] [address], [place] [address] Dec, [facility] [address] [id number] [address] [place] [address], [place] [address] 15 Dec, 2011 [facility] [address] [id number] [address] [place] [address], [place] [address] Dec, [facility] [address] [id number] [address] [place] [address], [place] [address] Dec, [facility] [address] [id number] [address] [place] [address], [place] [address] October, [facility] [address] [id number] [address] [place] [address], [place] [address] October, [facility] [address] [id number] [address] [place] [address], [place] [address] October, [facility] [address] [id number] [address] [place] [address], [place] [address] October, [facility] [address] [id number] [address] [place] [address], [place] [address] October, [facility] [address] [id number] [address] [place] [address], [place] [address] October, [facility] [address] [id number] [address] [place] [address], [place] [address] Oct, [facility] [address] [id number] [address] [place] [address], [place] [address] 24 Oct, 2011 [facility] [address] [id number] [address] [place] [address], [place] [address] Oct, [facility] [address] [id number] [address] [place] [address], [place] [address] Oct, [facility] [address] [id number] [address] [place] [address], [place] [address] Oct, [facility] [address] [id number] [address] [place] [address], [place] [address] Oct, [facility] [address] [id number] [address] [place] [address], [place] [address] Oct, [facility] [address] [id number] [address] [place] [address], [place] [address] Aug, [facility] [address] [id number] [address] [place] [address], [place] [address] 29 Sep, 2011 [facility] [address] [id number] [address] [place] [address], [place] [address] 19 Sep, 2011 [facility] [address] [id number] [address] [place] [address], [place] [address] 13 Sep, 2011 [facility] [address] [id number] [address] [place] [address], [place] [address] 05 Sep, 2011 [facility] [address] [id number] [address] [place] [address], [place] [address] Aug, [facility] [address] [id number] [address] [place] [address], [place] [address] Aug, [facility] [address] [id number] [address] [place] [address], [place] [address] Aug, [facility] [address] [id number] [address] [place] [address], [place] [address] Aug, [facility] [address] [id number] [address] [place] [address], [place] [address] Jul, [facility] [address] [id number] [address] [place] [address], [place] [address] Jul, [facility] [address] [id number] [address] [place] [address], [place] [address] Jul, [facility] [address] [id number] [address] [place] [address], [place] [address] Jul, [facility] [address] [id number] [address] [place] [address], [place] [address] Jun, [facility] [address] [id number] [address] [place] [address], [place] [address] Jun, [facility] [address] [id number] [address] [place] [address], [place] [address] May, [facility] [address] [id number] [address] [place] [address], [place] [address] May, [facility] [address] [id number] [address] [place] [address], [place] [address] May, [facility] [address] [id number] [address] [place] [address], [place] [address] May, [facility] [address] [id number] [address] [place] [address], [place] [address] 07 May, 2011 [facility] [address] [id number] [address] [place] [address], [place] [address] Apr, [facility] [address] [id number] [address] [place] [address] Apr, [facility] [address] [id number] [address] [place] [address] Apr, [facility] [address] [id number] [address] [place] [address] Jan, [facility] [address] [id number] [address] [place] [address] Dec, [facility] [address] [id number] [address] [place] [address] October, [facility] [address] [id number] [address] [place] [address] Jun, [facility] [address] [id number] [address] [place] [address] Apr, [facility] [address] [id number] [address] [place] [address] Apr, [facility] [address] [id number] [address] [place] [address] Apr, [facility] [address] [id number] [address] [place] [address] Jun, IMMUNIZATIONS No Known Immunizations SOCIAL HISTORY Never Assessed REASON FOR VISIT [facility] [place] PLAN OF CARE [...]
--- OUTSIDE RECORDS SUMMARY | 2020-01-25 13:04 | XMS REPORT ---
Author Author Ana Mayer Doctor Organization [facility] Address Unknown Phone Unavailable Care Team Providers Care Karate Instructor Name Role Phone Migration, Doctor Unavailable Unavailable PROBLEMS Type Condition ICD9-CM Code UFM47-PH Code Onset Dates Condition S tatus SNOMED Code Problem Attention deficit R41.840 Active 76 364739 Problem Chronic hepatitis C without hepatic coma B18.2 Active 048835510 Problem Cannabis abuse F12.10 Active 62827 009 Problem Bipolar disorder, in partial remission, most rec ent episode hypomanic F31.71 Active 647948027 Problem Attention deficit hyperactivity disorder (ADHD), combi luciano type F90.2 Active 19803875 Problem Bipolar 1 disorder F31.9 Active 3 14819823 Problem H/O laminectomy Z98.89 Active 1616 75685 Problem Other chronic pain G89.29 Active 8 5432133 Problem Anxiety disorder, unspecified type F41.9 Active [id number] ALLERGIES No Information ENCOUNTERS Encounter Location Date Diagnosis [facility] [address] [facility] [id number] [address] [place] [address] Oct, [facility] [address] [facility] [id number] [address] [place] [address] Aug, Bipolar disorder, in partial remission, most recent episode hypomanic F31.71 ; Attention deficit hyperactivity disorder (ADHD), combined type F90.2 and Anxiety disorder, unspecified type F41.9 [facility] [address] [facility] [id number] [address] [place] [address] Aug, [facility] [address] [facility] [id number] [address] [place] [address] Aug, Bipolar disorder, in partial remission, most recent episode hypomanic F31.71 [facility] [address] [facility] [id number] [address] [place] [address] Aug, [facility] [address] [id number] [address] [place] [address] Aug, Bipolar disorder, in partial remission, most recent episode hypomanic F31.71 [facility] [address] [id number] [address] [place] [address] Aug, Bipolar disorder, in partial remission, most recent episode hypomanic F31.71 ; Attention deficit hyperactivity disorder (ADHD), combined type F90.2 and Anxiety disorder, unspecified type F41.9 [facility] [address] [id number] [address] [place] [address] Aug, Low back pain M54.5 and Pain in left wrist M25.532 [facility] [address] [id number] [address] [place] [address] Aug, [facility] [address] [id number] [address] [place] [address] Jun, [facility] [address] [facility] [id number] [address] [place] [address] Apr, Bipolar disorder, in partial remission, most recent episode hypomanic F31.71 [facility] [address] [id number] [address] [place] [address] Apr, [facility] [address] [id number] [address] [place] [address] Apr, Bipolar disorder, in partial remission, most recent episode hypomanic F31.71 ; Attention deficit hyperactivity disorder (ADHD), combined type F90.2 ; Anxiety disorder, unspecified type F41.9 and Other nursing home (current) 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 Z79.899 [facility] [address] [id number] [address] [place] [address] Apr, Bipolar disorder, in partial remission, most recent episode hypomanic F31.71 [facility] [address] [id number] [address] [place] [address] Apr, Bipolar disorder, in partial remission, most recent episode hypomanic F31.71 [facility] [address] [facility] [id number] [address] [place] [address] Mar, [facility] [address] [id number] [address] [place] [address] Mar, Bipolar disorder, in partial remission, most recent episode hypomanic F31.71 ; Encounter for immunization Z23 and Low back pain M54.5 [facility] [address] [id number] [address] [place] [address] Mar, Bipolar disorder, in partial remission, most recent episode hypomanic F31.71 [facility] [address] [id number] [address] [place] [address] Mar, Bipolar disorder, in partial remission, most recent episode hypomanic F31.71 [facility] [address] [facility] [id number] [address] [place] [address] Jan, Bipolar disorder, in partial remission, most recent episode hypomanic F31.71 [facility] [address] [facility] [id number] [address] [place] [address] Jan, Bipolar disorder, in partial remission, most recent episode hypomanic F31.71 [facility] [address] [facility] [id number] [address] [place] [address] Dec, Bipolar disorder, in partial remission, most recent episode hypomanic F31.71 [facility] [address] [facility] [id number] [address] [place] [address] Dec, Bipolar disorder, in partial remission, most recent episode hypomanic F31.71 ; Attention deficit hyperactivity disorder (ADHD), combined type F90.2 ; Anxiety disorder, unspecified type F41.9 and Other nursing home (current) 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 Z79.899 [facility] [address] [facility] [id number] [address] [place] [address] Dec, Bipolar disorder, in partial remission, most recent episode hypomanic F31.71 [facility] [address] [facility] [id number] [address] [place] [address] Dec, Bipolar disorder, in partial remission, most recent episode hypomanic F31.71 [facility] [address] [id number] [address] [place] [address] October, Bipolar disorder, in partial remission, most recent episode hypomanic F31.71 [facility] [address] [id number] [address] [place] [address] October, [facility] [address] [id number] [address] [place] [address] October, [facility] [address] [id number] [address] [place] [address] Oct, Bipolar disorder, in partial remission, most recent episode hypomanic F31.71 ; Attention deficit hyperactivity disorder (ADHD), combined type F90.2 ; Anxiety disorder, unspecified type F41.9 and Encounter for drug screening Z02.83 [facility] [address] [id number] [address] [place] [address] Oct, Bipolar disorder, in partial remission, most recent episode hypomanic F31.71 [facility] [address] [id number] [address] [place] [address] Oct, Bipolar disorder, in partial remission, most recent episode hypomanic F31.71 [facility] [address] [id number] [address] [place] [address] Aug, Bipolar disorder, in partial remission, most recent episode hypomanic F31.71 [facility] [address] [id number] [address] [place] [address] Aug, Bipolar disorder, in partial remission, most recent episode hypomanic F31.71 [facility] [address] [id number] [address] [place] [address] Aug, Bipolar disorder, in partial remission, most recent episode hypomanic F31.71 [facility] [address] [id number] [address] [place] [address] Jul, Bipolar disorder, in partial remission, most recent episode hypomanic F31.71 ; Attention deficit hyperactivity disorder (ADHD), combined type F90.2 and Anxiety disorder, unspecified type F41.9 [facility] [address] [id number] [address] [place] [address] Jul, Bipolar disorder, in partial remission, most recent episode hypomanic F31.71 [facility] [address] [id number] [address] [place] [address] Jun, Bipolar disorder, in partial remission, most recent episode hypomanic F31.71 [facility] [address] [id number] [address] [place] [address] May, Bipolar disorder, in partial remission, most recent episode hypomanic F31.71 [facility] [address] [facility] [id number] [address] [place] [address] May, Bipolar disorder, in partial remission, most recent episode hypomanic F31.71 [facility] [address] [facility] [id number] [address] [place] [address] Apr, [facility] [address] [id number] [address] [place] [address] Apr, Bipolar disorder, in partial remission, most recent episode hypomanic F31.71 ; Attention deficit hyperactivity disorder (ADHD), combined type F90.2 ; Anxiety disorder, unspecified type F41.9 and Cannabis abuse F12.10 [facility] [address] [id number] [address] [place] [address] Apr, Attention deficit hyperactiv ity disorder (ADHD), combined type F90.2 [facility] [address] [id number] [address] [place] [address] Mar, Attention deficit hyperactiv ity disorder (ADHD), combined type F90.2 [facility] [address] [facility] [id number] [address] [place] [address] Mar, Anxiety disorder, unspecifie d type F41.9 [facility] [address] [facility] [id number] [address] [place] [address] Jan, Attention deficit hyperactiv ity disorder (ADHD), combined type F90.2 [facility] [address] [facility] [id number] [address] [place] [address] Jan, Anxiety disorder, unspecifie d type F41.9 [facility] [address] [facility] [id number] [address] [place] [address] Jan, Other chronic pain G89.29 ; Chronic hepatitis C without hepatic coma B18.2 and Bipolar 1 disorder F31.9 [facility] [address] [facility] [id number] [address] [place] [address] Dec, Attention deficit hyperactiv ity disorder (ADHD), combined type F90.2 [facility] [address] [facility] [id number] [address] [place] [address] Dec, Bipolar disorder, in partial remission, most recent episode hypomanic F31.71 ; Attention deficit hyperactivity disorder (ADHD), combined type F90.2 and Anxiety disorder, unspecified type F41.9 [facility] [address] [facility] [id number] [address] [place] [address] Dec, Bipolar disorder, in partial remission, most recent episode hypomanic F31.71 ; Attention deficit hyperactivity disorder (ADHD), combined type F90.2 and Anxiety disorder, unspecified type F41.9 [facility] [address] [facility] [id number] [address] [place] [address] Dec, Bipolar 1 disorder F31.9 and Attention deficit R41.840 [facility] [address] [facility] [id number] [address] [place] [address] Oct, Other chronic pain G89.29 ; Alopecia L65.9 and Screening, lipid Z13.220 [facility] [address] [facility] [id number] [address] [place] [address] Oct, [place] [address] [facility] [id number] [address] [place] [address] Aug, [facility] [address] [facility] [id number] [address] [place] [address] Aug, Eustachian tube dysfunction, right H69.81 ; Vertigo R42 and Other chronic pain G89.29 [facility] [address] [id number] [address] [place] [address] Aug, [facility] [address] [id number] [address] [place] [address] Jun, [facility] [address] [id number] [address] [place] [address] Jun, Low back pain M54.5 and Othe r chronic pain G89.29 [facility] [address] [id number] [address] [place] [address] Jun, [facility] [address] [id number] [address] [place] [address] May, [facility] [address] [id number] [address] [place] [address] Jan, [facility] [address] [id number] [address] [place] [address] Dec, [facility] [address] [id number] [address] [place] [address] Dec, [facility] [address] [id number] [address] [place] [address] Jun, [facility] [address] [id number] [address] [place] [address] Apr, Eustachian tube dysfunction, unspecified laterality H69.80 ; Hot flashes N95.1 and Encounter for immunization Z23 [facility] [address] [id number] [address] [place] [address] Jan, [facility] [address] [id number] [address] [place] [address] Jan, [facility] [address] [id number] [address] [place] [address] Jan, [facility] [address] [id number] [address] [place] [address] Jan, [facility] [address] [id number] [address] [place] [address] Jan, Encounter to establish care V65.8 ; Bipolar 1 disorder 296.7 ; Abdominal pain 789.00 ; Constipation 564.00 ; Hard of hearing 389.9 and Drug abuse 305.90 [facility] [address] [id number] [address] [place] [address] Dec, [facility] [address] [id number] [address] [place] [address] October, [facility] [address] [id number] [address] [place] [address] October, [facility] [address] [id number] [address] [place] [address] Oct, [facility] [address] [id number] [address] [place] [address] Oct, [facility] [address] [id number] [address] [place] [address] Oct, [facility] [address] [id number] [address] [place] [address] Aug, [facility] [address] [id number] [address] [place] [address] Aug, [facility] [address] [id number] [address] [place] [address] Aug, [facility] [address] [id number] [address] [place] [address] Aug, [facility] [address] [id number] [address] [place] [address] Aug, [facility] [address] [id number] [address] [place] [address] Aug, [facility] [address] [id number] [address] [place] [address], [place] [address] Aug, 2014 [facility] [address] [id number] [address] [place] [address], [place] [address] Aug, 2014 [facility] [address] [id number] [address] [place] [address], [place] [address] Aug, 2014 [facility] [address] [id number] [address] [place] [address], [place] [address] Aug, 2014 [facility] [address] [id number] [address] [place] [address], [place] [address] Aug, 2014 [facility] [address] [id number] [address] [place] [address], [place] [address] Aug, 2014 [facility] [address] [id number] [address] [place] [address], [place] [address] Aug, 2014 [facility] [address] [id number] [address] [place] [address], [place] [address] Aug, 2014 [facility] [address] [id number] [address] [place] [address], [place] [address] Aug, [facility] [address] [id number] [address] [place] [address], [place] [address] Jul, [facility] [address] [id number] [address] [place] [address], [place] [address] Jul, [facility] [address] [id number] [address] [place] [address], [place] [address] Jul, [facility] [address] [id number] [address] [place] [address], [place] [address] Jul, [facility] [address] [id number] [address] [place] [address], [place] [address] Jul, [facility] [address] [id number] [address] [place] [address], [place] [address] Jul, [facility] [address] [id number] [address] [place] [address], [place] [address] Jul, [facility] [address] [id number] [address] [place] [address], [place] [address] Jul, [facility] [address] [id number] [address] [place] [address], [place] [address] Jun, [facility] [address] [id number] [address] [place] [address], [place] [address] Jun, [facility] [address] [id number] [address] [place] [address], [place] [address] Jun, [facility] [address] [id number] [address] [place] [address], [place] [address] Jun, [facility] [address] [id number] [address] [place] [address], [place] [address] Jun, [facility] [address] [id number] [address] [place] [address], [place] [address] Jun, [facility] [address] [id number] [address] [place] [address], [place] [address] Jun, [facility] [address] [id number] [address] [place] [address], [place] [address] Jun, [facility] [address] [id number] [address] [place] [address], [place] [address] Jun, [facility] [address] [id number] [address] [place] [address], [place] [address] Jun, [facility] [address] [id number] [address] [place] [address], [place] [address] Jun, [facility] [address] [id number] [address] [place] [address], [place] [address] May, [facility] [address] [id number] [address] [place] [address], [place] [address] May, [facility] [address] [id number] [address] [place] [address], [place] [address] May, [facility] [address] [id number] [address] [place] [address], [place] [address] May, [facility] [address] [id number] [address] [place] [address], [place] [address] May, [facility] [address] [id number] [address] [place] [address], [place] [address] May, [facility] [address] [id number] [address] [place] [address], [place] [address] May, [facility] [address] [id number] [address] [place] [address], [place] [address] Apr, [facility] [address] [id number] [address] [place] [address], [place] [address] Apr, [facility] [address] [id number] [address] [place] [address], [place] [address] Apr, [facility] [address] [id number] [address] [place] [address], [place] [address] Apr, [facility] [address] [id number] [address] [place] [address], [place] [address] Apr, [facility] [address] [id number] [address] [place] [address], [place] [address] Apr, [facility] [address] [id number] [address] [place] [address], [place] [address] Mar, [facility] [address] [id number] [address] [place] [address], [place] [address] 29 Mar, 2013 [facility] [address] [id number] [address] [place] [address], [place] [address] 10 Mar, 2013 [facility] [address] [id number] [address] [place] [address], [place] [address] 10 Mar, 2013 [facility] [address] [id number] [address] [place] [address], [place] [address] Mar, 2013 [facility] [address] [id number] [address] [place] [address], [place] [address] Mar, [facility] [address] [id number] [address] [place] [address], [place] [address] Jan, [facility] [address] [id number] [address] [place] [address], [place] [address] Jan, [facility] [address] [id number] [address] [place] [address], [place] [address] Jan, [facility] [address] [id number] [address] [place] [address], [place] [address] Jan, [facility] [address] [id number] [address] [place] [address], [place] [address] Dec, [facility] [address] [id number] [address] [place] [address], [place] [address] Dec, [facility] [address] [id number] [address] [place] [address], [place] [address] Dec, [facility] [address] [id number] [address] [place] [address], [place] [address] Dec, [facility] [address] [id number] [address] [place] [address], [place] [address] Dec, [facility] [address] [id number] [address] [place] [address], [place] [address] Dec, [facility] [address] [id number] [address] [place] [address], [place] [address] Dec, [facility] [address] [id number] [address] [place] [address], [place] [address] Dec, [facility] [address] [id number] [address] [place] [address], [place] [address] Dec, [facility] [address] [id number] [address] [place] [address], [place] [address] Dec, [facility] [address] [id number] [address] [place] [address], [place] [address] Dec, [facility] [address] [id number] [address] [place] [address], [place] [address] Dec, [facility] [address] [id number] [address] [place] [address], [place] [address] October, [facility] [address] [id number] [address] [place] [address], [place] [address] October, [facility] [address] [id number] [address] [place] [address], [place] [address] October, [facility] [address] [id number] [address] [place] [address], [place] [address] October, [facility] [address] [id number] [address] [place] [address], [place] [address] October, [facility] [address] [id number] [address] [place] [address], [place] [address] October, [facility] [address] [id number] [address] [place] [address], [place] [address] Oct, [facility] [address] [id number] [address] [place] [address], [place] [address] Oct, [facility] [address] [id number] [address] [place] [address], [place] [address] Oct, [facility] [address] [id number] [address] [place] [address], [place] [address] Oct, [facility] [address] [id number] [address] [place] [address], [place] [address] Oct, [facility] [address] [id number] [address] [place] [address], [place] [address] Oct, [facility] [address] [id number] [address] [place] [address], [place] [address] Oct, [facility] [address] [id number] [address] [place] [address], [place] [address] Oct, [facility] [address] [id number] [address] [place] [address], [place] [address] Oct, [facility] [address] [id number] [facility] [place] [address] 09 Oct, 2013 [facility] [address] [id number] [facility] [place] [address] Oct, [facility] [address] [id number] [address] [place] [address], [place] [address] Oct, [facility] [address] [id number] [address] [place] [address], [place] [address] Aug, [facility] [address] [id number] [address] [place] [address], [place] [address] Aug, [facility] [address] [id number] [address] [place] [address], [place] [address] Aug, [facility] [address] [id number] [address] [place] [address], [place] [address] Aug, [facility] [address] [id number] [address] [place] [address], [place] [address] Aug, [facility] [address] [id number] [address] [place] [address], [place] [address] 05 Aug, 2013 [facility] [address] [id number] [address] [place] [address], [place] [address] Aug, [facility] [address] [id number] [address] [place] [address], [place] [address] Aug, [facility] [address] [id number] [address] [place] [address], [place] [address] Aug, [facility] [address] [id number] [address] [place] [address], [place] [address] Aug, [facility] [address] [id number] [address] [place] [address], [place] [address] Aug, [facility] [address] [id number] [address] [place] [address], [place] [address] Aug, [facility] [address] [id number] [address] [place] [address], [place] [address] Aug, [facility] [address] [id number] [address] [place] [address], [place] [address] 20 Aug, 2013 [facility] [address] [id number] [address] [place] [address], [place] [address] 14 Aug, 2013 [facility] [address] [id number] [address] [place] [address], [place] [address] 14 Aug, 2013 [facility] [address] [id number] [address] [place] [address], [place] [address] 14 Aug, 2013 [facility] [address] [id number] [address] [place] [address], [place] [address] 14 Aug, 2013 [facility] [address] [id number] [address] [place] [address], [place] [address] 07 Aug, 2013 [facility] [address] [id number] [address] [place] [address], [place] [address] 07 Aug, 2013 [facility] [address] [id number] [address] [place] [address], [place] [address] 06 Aug, 2013 [facility] [address] [id number] [address] [place] [address], [place] [address] 06 Aug, 2013 [facility] [address] [id number] [address] [place] [address], [place] [address] 04 Aug, 2013 [facility] [address] [id number] [address] [place] [address], [place] [address] 04 Aug, 2013 [facility] [address] [id number] [address] [place] [address], [place] [address] Aug, [facility] [address] [id number] [address] [place] [address], [place] [address] Jul, [facility] [address] [id number] [address] [place] [address], [place] [address] Jul, [facility] [address] [id number] [address] [place] [address], [place] [address] Jul, [facility] [address] [id number] [address] [place] [address], [place] [address] Jul, [facility] [address] [id number] [address] [place] [address], [place] [address] Jul, [facility] [address] [id number] [address] [place] [address], [place] [address] Jul, [facility] [address] [id number] [address] [place] [address], [place] [address] Jul, [facility] [address] [id number] [address] [place] [address], [place] [address] Jul, [facility] [address] [id number] [address] [place] [address], [place] [address] Jul, [facility] [address] [id number] [address] [place] [address], [place] [address] Jul, [facility] [address] [id number] [address] [place] [address], [place] [address] Jul, [facility] [address] [id number] [address] [place] [address], [place] [address] Jul, [facility] [address] [id number] [address] [place] [address], [place] [address] Jul, [facility] [address] [id number] [address] [place] [address], [place] [address] Jul, [facility] [address] [id number] [address] [place] [address], [place] [address] Jul, [facility] [address] [id number] [address] [place] [address], [place] [address] Jul, [facility] [address] [id number] [address] [place] [address], [place] [address] Jul, [facility] [address] [id number] [address] [place] [address], [place] [address] Jul, [facility] [address] [id number] [address] [place] [address], [place] [address] Jul, [facility] [address] [id number] [address] [place] [address], [place] [address] Jul, [facility] [address] [id number] [address] [place] [address], [place] [address] Jun, [facility] [address] [id number] [address] [place] [address], [place] [address] Jun, [facility] [address] [id number] [address] [place] [address], [place] [address] Jun, [facility] [address] [id number] [address] [place] [address], [place] [address] Jun, [facility] [address] [id number] [address] [place] [address], [place] [address] Jun, [facility] [address] [id number] [address] [place] [address], [place] [address] Jun, [facility] [address] [id number] [address] [place] [address], [place] [address] Jun, [facility] [address] [id number] [address] [place] [address], [place] [address] Jun, [facility] [address] [id number] [address] [place] [address], [place] [address] Jun, [facility] [address] [id number] [address] [place] [address], [place] [address] Jun, [facility] [address] [id number] [address] [place] [address], [place] [address] Jun, [facility] [address] [id number] [address] [place] [address], [place] [address] Jun, [facility] [address] [id number] [address] [place] [address], [place] [address] Jun, [facility] [address] [id number] [address] [place] [address], [place] [address] Jun, [facility] [address] [id number] [address] [place] [address], [place] [address] 20 Jun, 2013 [facility] [address] [id number] [address] [place] [address], [place] [address] [address], [address] [facility] [address] [id number] [address] [place] [address], [place] [address] [address], [address] [facility] [address] [id number] [address] [place] [address], [place] [address] 17 Jun, 2013 [facility] [address] [id number] [address] [place] [address], [place] [address] 17 Jun, 2013 [facility] [address] [id number] [address] [place] [address], [place] [address] [address], [address] [facility] [address] [id number] [address] [place] [address], [place] [address] [address], [address] [facility] [address] [id number] [address] [place] [address], [place] [address] [address], [address] [facility] [address] [id number] [address] [place] [address], [place] [address] [address], [address] [facility] [address] [id number] [address] [place] [address], [place] [address] [address], [address] [facility] [address] [id number] [address] [place] [address], [place] [address] [address], [address] [facility] [address] [id number] [address] [place] [address], [place] [address] [address], [address] [facility] [address] [id number] [address] [place] [address], [place] [address] 04 Jun, 2013 [facility] [address] [id number] [address] [place] [address], [place] [address] [address], [address] [facility] [address] [id number] [address] [place] [address], [place] [address] 17 May, 2013 [facility] [address] [id number] [address] [place] [address], [place] [address] May, [facility] [address] [id number] [address] [place] [address], [place] [address] May, [facility] [address] [id number] [address] [place] [address], [place] [address] May, [facility] [address] [id number] [address] [place] [address], [place] [address] May, [facility] [address] [id number] [address] [place] [address], [place] [address] Apr, [facility] [address] [id number] [address] [place] [address], [place] [address] Apr, [facility] [address] [id number] [address] [place] [address], [place] [address] Apr, [facility] [address] [id number] [address] [place] [address], [place] [address] Apr, [facility] [address] [id number] [address] [place] [address], [place] [address] Apr, [facility] [address] [id number] [address] [place] [address], [place] [address] Apr, [facility] [address] [id number] [address] [place] [address], [place] [address] Apr, [facility] [address] [id number] [address] [place] [address], [place] [address] Apr, [facility] [address] [id number] [address] [place] [address], [place] [address] 26 Mar, 2013 [facility] [address] [id number] [address] [place] [address] [address] 24 Sep2012 [facility] [address] [id number] [address] [place] [address], [place] [address] 17 Mar, 2013 [facility] [address] [id number] [address] [place] [address], [place] [address] 17 Mar, 2013 [facility] [address] [id number] [address] [place] [address] [place] [address] 11 Mar, 2013 [facility] [address] [id number] [address] [place] [address], [place] [address] 10 Mar, 2013 [facility] [address] [id number] [address] [place] [address], [place] [address] 05 Mar, 2013 [facility] [address] [id number] [address] [place] [address], [place] [address] 04 Mar, 2013 [facility] [address] [id number] [address] [place] [address], [place] [address] 20 Jan, 2013 [facility] [address] [id number] [address] [place] [address], [place] [address] Jan, [facility] [address] [id number] [address] [place] [address], [place] [address] 14 Jan, 2013 [facility] [address] [id number] [address] [place] [address], [place] [address] Jan, [facility] [address] [id number] [address] [place] [address], [place] [address] Jan, [facility] [address] [id number] [address] [place] [address], [place] [address] Jan, [facility] [address] [id number] [address] [place] [address], [place] [address] Dec, [facility] [address] [id number] [address] [place] [address], [place] [address] Dec, [facility] [address] [id number] [address] [place] [address], [place] [address] Dec, [facility] [address] [id number] [address] [place] [address], [place] [address] Dec, [facility] [address] [id number] [address] [place] [address], [place] [address] Dec, [facility] [address] [id number] [address] [place] [address], [place] [address] 17 Dec, 2012 [facility] [address] [id number] [address] [place] [address], [place] [address] 16 Dec, 2012 [facility] [address] [id number] [address] [place] [address], [place] [address] 16 Dec, 2012 [facility] [address] [id number] [address] [place] [address], [place] [address] 15 Dec, 2012 [facility] [address] [id number] [address] [place] [address], [place] [address] 10 Dec, 2012 [facility] [address] [id number] [address] [place] [address], [place] [address] 28 Dec, 2012 [facility] [address] [id number] [address] [place] [address], [place] [address] Dec, [facility] [address] [id number] [address] [place] [address], [place] [address] Dec, [facility] [address] [id number] [address] [place] [address], [place] [address] Dec, [facility] [address] [id number] [address] [place] [address], [place] [address] Dec, [facility] [address] [id number] [address] [place] [address], [place] [address] Dec, [facility] [address] [id number] [address] [place] [address], [place] [address] October, [facility] [address] [id number] [address] [place] [address], [place] [address] October, [facility] [address] [id number] [address] [place] [address], [place] [address] October, [facility] [address] [id number] [address] [place] [address], [place] [address] October, [facility] [address] [id number] [address] [place] [address], [place] [address] October, [facility] [address] [id number] [address] [place] [address], [place] [address] October, [facility] [address] [id number] [address] [place] [address], [place] [address] October, [facility] [address] [id number] [address] [place] [address], [place] [address] Oct, [facility] [address] [id number] [address] [place] [address], [place] [address] Oct, [facility] [address] [id number] [address] [place] [address], [place] [address] Oct, [facility] [address] [id number] [address] [place] [address], [place] [address] Oct, [facility] [address] [id number] [address] [place] [address], [place] [address] Oct, [facility] [address] [id number] [address] [place] [address], [place] [address] Oct, [facility] [address] [id number] [address] [place] [address], [place] [address] Oct, [facility] [address] [id number] [address] [place] [address], [place] [address] 15 Oct, 2012 [facility] [address] [id number] [address] [place] [address], [place] [address] Oct, [facility] [address] [id number] [address] [place] [address], [place] [address] Oct, [facility] [address] [id number] [address] [place] [address], [place] [address] Oct, [facility] [address] [id number] [address] [place] [address], [place] [address] Oct, [facility] [address] [id number] [address] [place] [address], [place] [address] Aug, [facility] [address] [id number] [address] [place] [address], [place] [address] Aug, [facility] [address] [id number] [address] [place] [address], [place] [address] 12 Aug, 2012 [facility] [address] [id number] [address] [place] [address], [place] [address] 06 Aug, 2012 [facility] [address] [id number] [address] [place] [address], [place] [address] 05 Aug, 2012 [facility] [address] [id number] [address] [place] [address], [place] [address] 05 Aug, 2012 [facility] [address] [id number] [address] [place] [address], [place] [address] 20 Aug, 2012 [facility] [address] [id number] [address] [place] [address], [place] [address] 14 Aug, 2012 [facility] [address] [id number] [address] [place] [address], [place] [address] 12 Aug, 2012 [facility] [address] [id number] [address] [place] [address], [place] [address] Aug, [facility] [address] [id number] [address] [place] [address], [place] [address] Jul, [facility] [address] [id number] [address] [place] [address], [place] [address] Jul, [facility] [address] [id number] [address] [place] [address], [place] [address] Jul, [facility] [address] [id number] [address] [place] [address], [place] [address] Jun, [facility] [address] [id number] [address] [place] [address], [place] [address] Jun, [facility] [address] [id number] [address] [place] [address], [place] [address] Jun, [facility] [address] [id number] [address] [place] [address], [place] [address] Jun, [facility] [address] [id number] [address] [place] [address], [place] [address] Jun, [facility] [address] [id number] [address] [place] [address], [place] [address] 14 Jun, 2012 [facility] [address] [id number] [address] [place] [address], [place] [address] 14 Jun, 2012 [facility] [address] [id number] [address] [place] [address], [place] [address] 13 Jun, 2012 [facility] [address] [id number] [address] [place] [address], [place] [address] 13 Jun, 2012 [facility] [address] [id number] [address] [place] [address], [place] [address] 11 Jun, 2012 [facility] [address] [id number] [address] [place] [address], [place] [address] 11 Jun, 2012 [facility] [address] [id number] [address] [place] [address], [place] [address] 11 Jun, 2012 [facility] [address] [id number] [address] [place] [address], [place] [address] 11 Jun, 2012 [facility] [address] [id number] [address] [place] [address], [place] [address] 07 Jun, 2012 [facility] [address] [id number] [address] [place] [address], [place] [address] 07 Jun, 2012 [facility] [address] [id number] [address] [place] [address], [place] [address] 06 Jun, 2012 [facility] [address] [id number] [address] [place] [address], [place] [address] 06 Jun, 2012 [facility] [address] [id number] [address] [place] [address], [place] [address] Jun, [facility] [address] [id number] [address] [place] [address], [place] [address] 06 Jun, 2012 [facility] [address] [id number] [address] [place] [address], [place] [address] 05 Jun, 2012 [facility] [address] [id number] [address] [place] [address], [place] [address] Jun, [facility] [address] [id number] [address] [place] [address], [place] [address] Jun, [facility] [address] [id number] [address] [place] [address], [place] [address] Jun, [facility] [address] [id number] [address] [place] [address], [place] [address] May, [facility] [address] [id number] [address] [place] [address], [place] [address] May, [facility] [address] [id number] [address] [place] [address], [place] [address] May, [facility] [address] [id number] [address] [place] [address], [place] [address] May, [facility] [address] [id number] [address] [place] [address], [place] [address] May, [facility] [address] [id number] [address] [place] [address], [place] [address] May, [facility] [address] [id number] [address] [place] [address], [place] [address] May, [facility] [address] [id number] [address] [place] [address], [place] [address] May, [facility] [address] [id number] [address] [place] [address], [place] [address] Apr, [facility] [address] [id number] [address] [place] [address] Apr, [facility] [address] [id number] [address] [place] [address], [place] [address] Apr, [facility] [address] [id number] [address] [place] [address], [place] [address] Apr, [facility] [address] [id number] [address] [place] [address] Apr, [facility] [address] [id number] [address] [place] [address], [place] [address] Apr, [facility] [address] [id number] [address] [place] [address], [place] [address] Apr, [facility] [address] [id number] [address] [place] [address], [place] [address] Apr, [facility] [address] [id number] [address] [place] [address], [place] [address] Apr, [facility] [address] [id number] [address] [place] [address], [place] [address] Apr, [facility] [address] [id number] [address] [place] [address], [place] [address] Apr, [facility] [address] [id number] [address] [place] [address], [place] [address] Apr, [facility] [address] [id number] [address] [place] [address], [place] [address] Mar, [facility] [address] [id number] [address] [place] [address], [place] [address] 18 Mar, 2012 [facility] [address] [id number] [address] [place] [address] Mar, [facility] [address] [id number] [address] [place] [address] Mar, [facility] [address] [id number] [address] [place] [id number] Mar, [facility] [address] [id number] [address] [place] [id number] Mar, [facility] [address] [id number] [address] [place] [address], [place] [address] Mar, [facility] [address] [id number] [address] [place] [address], [place] [address] Jan, [facility] [address] [id number] [address] [place] [address] Jan, [facility] [address] [id number] [facility] [place] [id number] Jan, [facility] [address] [id number] [facility] [id number] Jan, [facility] [address] [id number] [address] [place] [address], [place] [address] Jan, [facility] [address] [id number] [address] [place] [address], [place] [address] Jan, [facility] [address] [id number] [address] [place] [address], [place] [address] Jan, [facility] [address] [id number] [address] [place] [address], [place] [address] Jan, [facility] [address] [id number] [address] [place] [address], [place] [address] Jan, [facility] [address] [id number] [address] [place] [address], [place] [address] Jan, [facility] [address] [id number] [address] [place] [address], [place] [address] Jan, [facility] [address] [id number] [address] [place] [address], [place] [address] Dec, [facility] [address] [id number] [address] [place] [address], [place] [address] Dec, [facility] [address] [id number] [address] [place] [address], [place] [address] Dec, [facility] [address] [id number] [address] [place] [address], [place] [address] Dec, [facility] [address] [id number] [address] [place] [address], [place] [address] Dec, [facility] [address] [id number] [address] [place] [address], [place] [address] Dec, [facility] [address] [id number] [address] [place] [address] [place] [address] 18 Jan, 2012 [facility] [address] [id number] [address] [place] [address], [place] [address] 17 Jan, 2012 [facility] [address] [id number] [address] [place] [address], [place] [address] 16 Jan, 2012 [facility] [address] [id number] [address] [place] [address], [place] [address] 13 Jan, 2012 [facility] [address] [id number] [address] [place] [address], [place] [address] 13 Jan, 2012 [facility] [address] [id number] [address] [place] [address], [place] [address] 02 Jan, 2012 [facility] [address] [id number] [address] [place] [address], [place] [address] Dec, [facility] [address] [id number] [address] [place] [address], [place] [address] Dec, [facility] [address] [id number] [address] [place] [address], [place] [address] Dec, [facility] [address] [id number] [address] [place] [address], [place] [address] Dec, [facility] [address] [id number] [address] [place] [address], [place] [address] 15 Dec, 2011 [facility] [address] [id number] [address] [place] [address], [place] [address] Dec, [facility] [address] [id number] [address] [place] [address], [place] [address] Dec, [facility] [address] [id number] [address] [place] [address], [place] [address] October, [facility] [address] [id number] [address] [place] [address], [place] [address] October, [facility] [address] [id number] [address] [place] [address], [place] [address] October, [facility] [address] [id number] [address] [place] [address], [place] [address] October, [facility] [address] [id number] [address] [place] [address], [place] [address] October, [facility] [address] [id number] [address] [place] [address], [place] [address] October, [facility] [address] [id number] [address] [place] [address], [place] [address] Oct, [facility] [address] [id number] [address] [place] [address], [place] [address] 24 Oct, 2011 [facility] [address] [id number] [address] [place] [address], [place] [address] Oct, [facility] [address] [id number] [address] [place] [address], [place] [address] Oct, [facility] [address] [id number] [address] [place] [address], [place] [address] Oct, [facility] [address] [id number] [address] [place] [address], [place] [address] Oct, [facility] [address] [id number] [address] [place] [address], [place] [address] Oct, [facility] [address] [id number] [address] [place] [address], [place] [address] Aug, [facility] [address] [id number] [address] [place] [address], [place] [address] 29 Sep, 2011 [facility] [address] [id number] [address] [place] [address], [place] [address] 19 Sep, 2011 [facility] [address] [id number] [address] [place] [address], [place] [address] 13 Sep, 2011 [facility] [address] [id number] [address] [place] [address], [place] [address] 05 Sep, 2011 [facility] [address] [id number] [address] [place] [address], [place] [address] Aug, [facility] [address] [id number] [address] [place] [address], [place] [address] Aug, [facility] [address] [id number] [address] [place] [address], [place] [address] Aug, [facility] [address] [id number] [address] [place] [address], [place] [address] Aug, [facility] [address] [id number] [address] [place] [address], [place] [address] Jul, [facility] [address] [id number] [address] [place] [address], [place] [address] Jul, [facility] [address] [id number] [address] [place] [address], [place] [address] Jul, [facility] [address] [id number] [address] [place] [address], [place] [address] Jul, [facility] [address] [id number] [address] [place] [address], [place] [address] Jun, [facility] [address] [id number] [address] [place] [address], [place] [address] Jun, [facility] [address] [id number] [address] [place] [address], [place] [address] May, [facility] [address] [id number] [address] [place] [address], [place] [address] May, [facility] [address] [id number] [address] [place] [address], [place] [address] May, [facility] [address] [id number] [address] [place] [address], [place] [address] May, [facility] [address] [id number] [address] [place] [address], [place] [address] 07 May, 2011 [facility] [address] [id number] [address] [place] [address], [place] [address] Apr, [facility] [address] [id number] [address] [place] [address] Apr, [facility] [address] [id number] [address] [place] [address] Apr, [facility] [address] [id number] [address] [place] [address] Jan, [facility] [address] [id number] [address] [place] [address] Dec, [facility] [address] [id number] [address] [place] [address] October, [facility] [address] [id number] [address] [place] [address] Jun, [facility] [address] [id number] [address] [place] [address] Apr, [facility] [address] [id number] [address] [place] [address] Apr, [facility] [address] [id number] [address] [place] [address] Apr, [facility] [address] [id number] [address] [place] [address] Jun, IMMUNIZATIONS No Known Immunizations SOCIAL HISTORY Never Assessed REASON FOR VISIT [facility] PLAN OF CARE VITAL [...]
--- OUTSIDE RECORDS SUMMARY | 2020-01-25 13:04 | XMS REPORT ---
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 Name Role Phone Migration, Doctor Unavailable Unavailable PROBLEMS Type Condition ICD9-CM Code HPT62-PF Code Onset Dates Condition S tatus SNOMED Code Problem Attention deficit R41.840 Active 76 104927 Problem Chronic hepatitis C without hepatic coma B18.2 Active 524414415 Problem Cannabis abuse F12.10 Active 92688 009 Problem Bipolar disorder, in partial remission, most rec ent episode hypomanic F31.71 Active 074906005 Problem Attention deficit hyperactivity disorder (ADHD), combi luciano type F90.2 Active 70141112 Problem Bipolar 1 disorder F31.9 Active 3 19747742 Problem H/O laminectomy Z98.89 Active 1616 15314 Problem Other chronic pain G89.29 Active 8 8324075 Problem Anxiety disorder, unspecified type F41.9 Active 797971931 ALLERGIES No Information ENCOUNTERS Encounter Location Date Diagnosis [facility] [address] [facility] [id number] [address] [place] [address] Oct, [facility] [address] [facility] [id number] [address] [place] [address] Aug, Bipolar disorder, in partial remission, most recent episode hypomanic F31.71 ; Attention deficit hyperactivity disorder (ADHD), combined type F90.2 and Anxiety disorder, unspecified type F41.9 [facility] [address] [facility] [id number] [address] [place] [address] Aug, [facility] [address] [facility] [id number] [address] [place] [address] Aug, Bipolar disorder, in partial remission, most recent episode hypomanic F31.71 [facility] [address] [facility] [id number] [address] [place] [address] Aug, [facility] [address] [id number] [address] [place] [address] Aug, Bipolar disorder, in partial remission, most recent episode hypomanic F31.71 [facility] [address] [id number] [address] [place] [address] Aug, Bipolar disorder, in partial remission, most recent episode hypomanic F31.71 ; Attention deficit hyperactivity disorder (ADHD), combined type F90.2 and Anxiety disorder, unspecified type F41.9 [facility] [address] [id number] [address] [place] [address] Aug, Low back pain M54.5 and Pain in left wrist M25.532 [facility] [address] [id number] [address] [place] [address] Aug, [facility] [address] [id number] [address] [place] [address] Jun, [facility] [address] [facility] [id number] [address] [place] [address] Apr, Bipolar disorder, in partial remission, most recent episode hypomanic F31.71 [facility] [address] [id number] [address] [place] [address] Apr, [facility] [address] [id number] [address] [place] [address] Apr, Bipolar disorder, in partial remission, most recent episode hypomanic F31.71 ; Attention deficit hyperactivity disorder (ADHD), combined type F90.2 ; Anxiety disorder, unspecified type F41.9 and Other fdc (current) 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 Z79.899 [facility] [address] [id number] [address] [place] [address] Apr, Bipolar disorder, in partial remission, most recent episode hypomanic F31.71 [facility] [address] [id number] [address] [place] [address] Apr, Bipolar disorder, in partial remission, most recent episode hypomanic F31.71 [facility] [address] [facility] [id number] [address] [place] [address] Mar, [facility] [address] [id number] [address] [place] [address] Mar, Bipolar disorder, in partial remission, most recent episode hypomanic F31.71 ; Encounter for immunization Z23 and Low back pain M54.5 [facility] [address] [id number] [address] [place] [address] Mar, Bipolar disorder, in partial remission, most recent episode hypomanic F31.71 [facility] [address] [id number] [address] [place] [address] Mar, Bipolar disorder, in partial remission, most recent episode hypomanic F31.71 [facility] [address] [facility] [id number] [address] [place] [address] Jan, Bipolar disorder, in partial remission, most recent episode hypomanic F31.71 [facility] [address] [facility] [id number] [address] [place] [address] Jan, Bipolar disorder, in partial remission, most recent episode hypomanic F31.71 [facility] [address] [facility] [id number] [address] [place] [address] Dec, Bipolar disorder, in partial remission, most recent episode hypomanic F31.71 [facility] [address] [facility] [id number] [address] [place] [address] Dec, Bipolar disorder, in partial remission, most recent episode hypomanic F31.71 ; Attention deficit hyperactivity disorder (ADHD), combined type F90.2 ; Anxiety disorder, unspecified type F41.9 and Other fdc (current) 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 Z79.899 [facility] [address] [facility] [id number] [address] [place] [address] Dec, Bipolar disorder, in partial remission, most recent episode hypomanic F31.71 [facility] [address] [facility] [id number] [address] [place] [address] Dec, Bipolar disorder, in partial remission, most recent episode hypomanic F31.71 [facility] [address] [id number] [address] [place] [address] October, Bipolar disorder, in partial remission, most recent episode hypomanic F31.71 [facility] [address] [id number] [address] [place] [address] October, [facility] [address] [id number] [address] [place] [address] October, [facility] [address] [id number] [address] [place] [address] Oct, Bipolar disorder, in partial remission, most recent episode hypomanic F31.71 ; Attention deficit hyperactivity disorder (ADHD), combined type F90.2 ; Anxiety disorder, unspecified type F41.9 and Encounter for drug screening Z02.83 [facility] [address] [id number] [address] [place] [address] Oct, Bipolar disorder, in partial remission, most recent episode hypomanic F31.71 [facility] [address] [id number] [address] [place] [address] Oct, Bipolar disorder, in partial remission, most recent episode hypomanic F31.71 [facility] [address] [id number] [address] [place] [address] Aug, Bipolar disorder, in partial remission, most recent episode hypomanic F31.71 [facility] [address] [id number] [address] [place] [address] Aug, Bipolar disorder, in partial remission, most recent episode hypomanic F31.71 [facility] [address] [id number] [address] [place] [address] Aug, Bipolar disorder, in partial remission, most recent episode hypomanic F31.71 [facility] [address] [id number] [address] [place] [address] Jul, Bipolar disorder, in partial remission, most recent episode hypomanic F31.71 ; Attention deficit hyperactivity disorder (ADHD), combined type F90.2 and Anxiety disorder, unspecified type F41.9 [facility] [address] [id number] [address] [place] [address] Jul, Bipolar disorder, in partial remission, most recent episode hypomanic F31.71 [facility] [address] [id number] [address] [place] [address] Jun, Bipolar disorder, in partial remission, most recent episode hypomanic F31.71 [facility] [address] [id number] [address] [place] [address] May, Bipolar disorder, in partial remission, most recent episode hypomanic F31.71 [facility] [address] [facility] [id number] [address] [place] [address] May, Bipolar disorder, in partial remission, most recent episode hypomanic F31.71 [facility] [address] [facility] [id number] [address] [place] [address] Apr, [facility] [address] [id number] [address] [place] [address] Apr, Bipolar disorder, in partial remission, most recent episode hypomanic F31.71 ; Attention deficit hyperactivity disorder (ADHD), combined type F90.2 ; Anxiety disorder, unspecified type F41.9 and Cannabis abuse F12.10 [facility] [address] [id number] [address] [place] [address] Apr, Attention deficit hyperactiv ity disorder (ADHD), combined type F90.2 [facility] [address] [id number] [address] [place] [address] Mar, Attention deficit hyperactiv ity disorder (ADHD), combined type F90.2 [facility] [address] [facility] [id number] [address] [place] [address] Mar, Anxiety disorder, unspecifie d type F41.9 [facility] [address] [facility] [id number] [address] [place] [address] Jan, Attention deficit hyperactiv ity disorder (ADHD), combined type F90.2 [facility] [address] [facility] [id number] [address] [place] [address] Jan, Anxiety disorder, unspecifie d type F41.9 [facility] [address] [facility] [id number] [address] [place] [address] Jan, Other chronic pain G89.29 ; Chronic hepatitis C without hepatic coma B18.2 and Bipolar 1 disorder F31.9 [facility] [address] [facility] [id number] [address] [place] [address] Dec, Attention deficit hyperactiv ity disorder (ADHD), combined type F90.2 [facility] [address] [facility] [id number] [address] [place] [address] Dec, Bipolar disorder, in partial remission, most recent episode hypomanic F31.71 ; Attention deficit hyperactivity disorder (ADHD), combined type F90.2 and Anxiety disorder, unspecified type F41.9 [facility] [address] [facility] [id number] [address] [place] [address] Dec, Bipolar disorder, in partial remission, most recent episode hypomanic F31.71 ; Attention deficit hyperactivity disorder (ADHD), combined type F90.2 and Anxiety disorder, unspecified type F41.9 [facility] [address] [facility] [id number] [address] [place] [address] Dec, Bipolar 1 disorder F31.9 and Attention deficit R41.840 [facility] [address] [facility] [id number] [address] [place] [address] Oct, Other chronic pain G89.29 ; Alopecia L65.9 and Screening, lipid Z13.220 [facility] [address] [facility] [id number] [address] [place] [address] Oct, [place] [address] [facility] [id number] [address] [place] [address] Aug, [facility] [address] [facility] [id number] [address] [place] [address] Aug, Eustachian tube dysfunction, right H69.81 ; Vertigo R42 and Other chronic pain G89.29 [facility] [address] [id number] [address] [place] [address] Aug, [facility] [address] [id number] [address] [place] [address] Jun, [facility] [address] [id number] [address] [place] [address] Jun, Low back pain M54.5 and Othe r chronic pain G89.29 [facility] [address] [id number] [address] [place] [address] Jun, [facility] [address] [id number] [address] [place] [address] May, [facility] [address] [id number] [address] [place] [address] Jan, [facility] [address] [id number] [address] [place] [address] Dec, [facility] [address] [id number] [address] [place] [address] Dec, [facility] [address] [id number] [address] [place] [address] Jun, [facility] [address] [id number] [address] [place] [address] Apr, Eustachian tube dysfunction, unspecified laterality H69.80 ; Hot flashes N95.1 and Encounter for immunization Z23 [facility] [address] [id number] [address] [place] [address] Jan, [facility] [address] [id number] [address] [place] [address] Jan, [facility] [address] [id number] [address] [place] [address] Jan, [facility] [address] [id number] [address] [place] [address] Jan, [facility] [address] [id number] [address] [place] [address] Jan, Encounter to establish care V65.8 ; Bipolar 1 disorder 296.7 ; Abdominal pain 789.00 ; Constipation 564.00 ; Hard of hearing 389.9 and Drug abuse 305.90 [facility] [address] [id number] [address] [place] [address] Dec, [facility] [address] [id number] [address] [place] [address] October, [facility] [address] [id number] [address] [place] [address] October, [facility] [address] [id number] [address] [place] [address] Oct, [facility] [address] [id number] [address] [place] [address] Oct, [facility] [address] [id number] [address] [place] [address] Oct, [facility] [address] [id number] [address] [place] [address] Aug, [facility] [address] [id number] [address] [place] [address] Aug, [facility] [address] [id number] [address] [place] [address] Aug, [facility] [address] [id number] [address] [place] [address] Aug, [facility] [address] [id number] [address] [place] [address] Aug, [facility] [address] [id number] [address] [place] [address] Aug, [facility] [address] [id number] [address] [place] [address], [place] [address] Aug, 2014 [facility] [address] [id number] [address] [place] [address], [place] [address] Aug, 2014 [facility] [address] [id number] [address] [place] [address], [place] [address] Aug, 2014 [facility] [address] [id number] [address] [place] [address], [place] [address] Aug, 2014 [facility] [address] [id number] [address] [place] [address], [place] [address] Aug, 2014 [facility] [address] [id number] [address] [place] [address], [place] [address] Aug, 2014 [facility] [address] [id number] [address] [place] [address], [place] [address] Aug, 2014 [facility] [address] [id number] [address] [place] [address], [place] [address] Aug, 2014 [facility] [address] [id number] [address] [place] [address], [place] [address] Aug, [facility] [address] [id number] [address] [place] [address], [place] [address] Jul, [facility] [address] [id number] [address] [place] [address], [place] [address] Jul, [facility] [address] [id number] [address] [place] [address], [place] [address] Jul, [facility] [address] [id number] [address] [place] [address], [place] [address] Jul, [facility] [address] [id number] [address] [place] [address], [place] [address] Jul, [facility] [address] [id number] [address] [place] [address], [place] [address] Jul, [facility] [address] [id number] [address] [place] [address], [place] [address] Jul, [facility] [address] [id number] [address] [place] [address], [place] [address] Jul, [facility] [address] [id number] [address] [place] [address], [place] [address] Jun, [facility] [address] [id number] [address] [place] [address], [place] [address] Jun, [facility] [address] [id number] [address] [place] [address], [place] [address] Jun, [facility] [address] [id number] [address] [place] [address], [place] [address] Jun, [facility] [address] [id number] [address] [place] [address], [place] [address] Jun, [facility] [address] [id number] [address] [place] [address], [place] [address] Jun, [facility] [address] [id number] [address] [place] [address], [place] [address] Jun, [facility] [address] [id number] [address] [place] [address], [place] [address] Jun, [facility] [address] [id number] [address] [place] [address], [place] [address] Jun, [facility] [address] [id number] [address] [place] [address], [place] [address] Jun, [facility] [address] [id number] [address] [place] [address], [place] [address] Jun, [facility] [address] [id number] [address] [place] [address], [place] [address] May, [facility] [address] [id number] [address] [place] [address], [place] [address] May, [facility] [address] [id number] [address] [place] [address], [place] [address] May, [facility] [address] [id number] [address] [place] [address], [place] [address] May, [facility] [address] [id number] [address] [place] [address], [place] [address] May, [facility] [address] [id number] [address] [place] [address], [place] [address] May, [facility] [address] [id number] [address] [place] [address], [place] [address] May, [facility] [address] [id number] [address] [place] [address], [place] [address] Apr, [facility] [address] [id number] [address] [place] [address], [place] [address] Apr, [facility] [address] [id number] [address] [place] [address], [place] [address] Apr, [facility] [address] [id number] [address] [place] [address], [place] [address] Apr, [facility] [address] [id number] [address] [place] [address], [place] [address] Apr, [facility] [address] [id number] [address] [place] [address], [place] [address] Apr, [facility] [address] [id number] [address] [place] [address], [place] [address] Mar, [facility] [address] [id number] [address] [place] [address], [place] [address] 29 Mar, 2013 [facility] [address] [id number] [address] [place] [address], [place] [address] 10 Mar, 2013 [facility] [address] [id number] [address] [place] [address], [place] [address] 10 Mar, 2013 [facility] [address] [id number] [address] [place] [address], [place] [address] Mar, 2013 [facility] [address] [id number] [address] [place] [address], [place] [address] Mar, [facility] [address] [id number] [address] [place] [address], [place] [address] Jan, [facility] [address] [id number] [address] [place] [address], [place] [address] Jan, [facility] [address] [id number] [address] [place] [address], [place] [address] Jan, [facility] [address] [id number] [address] [place] [address], [place] [address] Jan, [facility] [address] [id number] [address] [place] [address], [place] [address] Dec, [facility] [address] [id number] [address] [place] [address], [place] [address] Dec, [facility] [address] [id number] [address] [place] [address], [place] [address] Dec, [facility] [address] [id number] [address] [place] [address], [place] [address] Dec, [facility] [address] [id number] [address] [place] [address], [place] [address] Dec, [facility] [address] [id number] [address] [place] [address], [place] [address] Dec, [facility] [address] [id number] [address] [place] [address], [place] [address] Dec, [facility] [address] [id number] [address] [place] [address], [place] [address] Dec, [facility] [address] [id number] [address] [place] [address], [place] [address] Dec, [facility] [address] [id number] [address] [place] [address], [place] [address] Dec, [facility] [address] [id number] [address] [place] [address], [place] [address] Dec, [facility] [address] [id number] [address] [place] [address], [place] [address] Dec, [facility] [address] [id number] [address] [place] [address], [place] [address] October, [facility] [address] [id number] [address] [place] [address], [place] [address] October, [facility] [address] [id number] [address] [place] [address], [place] [address] October, [facility] [address] [id number] [address] [place] [address], [place] [address] October, [facility] [address] [id number] [address] [place] [address], [place] [address] October, [facility] [address] [id number] [address] [place] [address], [place] [address] October, [facility] [address] [id number] [address] [place] [address], [place] [address] Oct, [facility] [address] [id number] [address] [place] [address], [place] [address] Oct, [facility] [address] [id number] [address] [place] [address], [place] [address] Oct, [facility] [address] [id number] [address] [place] [address], [place] [address] Oct, [facility] [address] [id number] [address] [place] [address], [place] [address] Oct, [facility] [address] [id number] [address] [place] [address], [place] [address] Oct, [facility] [address] [id number] [address] [place] [address], [place] [address] Oct, [facility] [address] [id number] [address] [place] [address], [place] [address] Oct, [facility] [address] [id number] [address] [place] [address], [place] [address] Oct, [facility] [address] [id number] [facility] [address] 09 Oct, 2013 [facility] [address] [id number] [facility] [address] Oct, [facility] [address] [id number] [address] [place] [address], [place] [address] Oct, [facility] [address] [id number] [address] [place] [address], [place] [address] Aug, [facility] [address] [id number] [address] [place] [address], [place] [address] Aug, [facility] [address] [id number] [address] [place] [address], [place] [address] Aug, [facility] [address] [id number] [address] [place] [address], [place] [address] Aug, [facility] [address] [id number] [address] [place] [address], [place] [address] Aug, [facility] [address] [id number] [address] [place] [address], [place] [address] 05 Aug, 2013 [facility] [address] [id number] [address] [place] [address], [place] [address] Aug, [facility] [address] [id number] [address] [place] [address], [place] [address] Aug, [facility] [address] [id number] [address] [place] [address], [place] [address] Aug, [facility] [address] [id number] [address] [place] [address], [place] [address] Aug, [facility] [address] [id number] [address] [place] [address], [place] [address] Aug, [facility] [address] [id number] [address] [place] [address], [place] [address] Aug, [facility] [address] [id number] [address] [place] [address], [place] [address] Aug, [facility] [address] [id number] [address] [place] [address], [place] [address] 20 Aug, 2013 [facility] [address] [id number] [address] [place] [address], [place] [address] 14 Aug, 2013 [facility] [address] [id number] [address] [place] [address], [place] [address] 14 Aug, 2013 [facility] [address] [id number] [address] [place] [address], [place] [address] 14 Aug, 2013 [facility] [address] [id number] [address] [place] [address], [place] [address] 14 Aug, 2013 [facility] [address] [id number] [address] [place] [address], [place] [address] 07 Aug, 2013 [facility] [address] [id number] [address] [place] [address], [place] [address] 07 Aug, 2013 [facility] [address] [id number] [address] [place] [address], [place] [address] 06 Aug, 2013 [facility] [address] [id number] [address] [place] [address], [place] [address] 06 Aug, 2013 [facility] [address] [id number] [address] [place] [address], [place] [address] 04 Aug, 2013 [facility] [address] [id number] [address] [place] [address], [place] [address] 04 Aug, 2013 [facility] [address] [id number] [address] [place] [address], [place] [address] Aug, [facility] [address] [id number] [address] [place] [address], [place] [address] Jul, [facility] [address] [id number] [address] [place] [address], [place] [address] Jul, [facility] [address] [id number] [address] [place] [address], [place] [address] Jul, [facility] [address] [id number] [address] [place] [address], [place] [address] Jul, [facility] [address] [id number] [address] [place] [address], [place] [address] Jul, [facility] [address] [id number] [address] [place] [address], [place] [address] Jul, [facility] [address] [id number] [address] [place] [address], [place] [address] Jul, [facility] [address] [id number] [address] [place] [address], [place] [address] Jul, [facility] [address] [id number] [address] [place] [address], [place] [address] Jul, [facility] [address] [id number] [address] [place] [address], [place] [address] Jul, [facility] [address] [id number] [address] [place] [address], [place] [address] Jul, [facility] [address] [id number] [address] [place] [address], [place] [address] Jul, [facility] [address] [id number] [address] [place] [address], [place] [address] Jul, [facility] [address] [id number] [address] [place] [address], [place] [address] Jul, [facility] [address] [id number] [address] [place] [address], [place] [address] Jul, [facility] [address] [id number] [address] [place] [address], [place] [address] Jul, [facility] [address] [id number] [address] [place] [address], [place] [address] Jul, [facility] [address] [id number] [address] [place] [address], [place] [address] Jul, [facility] [address] [id number] [address] [place] [address], [place] [address] Jul, [facility] [address] [id number] [address] [place] [address], [place] [address] Jul, [facility] [address] [id number] [address] [place] [address], [place] [address] Jun, [facility] [address] [id number] [address] [place] [address], [place] [address] Jun, [facility] [address] [id number] [address] [place] [address], [place] [address] Jun, [facility] [address] [id number] [address] [place] [address], [place] [address] Jun, [facility] [address] [id number] [address] [place] [address], [place] [address] Jun, [facility] [address] [id number] [address] [place] [address], [place] [address] Jun, [facility] [address] [id number] [address] [place] [address], [place] [address] Jun, [facility] [address] [id number] [address] [place] [address], [place] [address] Jun, [facility] [address] [id number] [address] [place] [address], [place] [address] Jun, [facility] [address] [id number] [address] [place] [address], [place] [address] Jun, [facility] [address] [id number] [address] [place] [address], [place] [address] Jun, [facility] [address] [id number] [address] [place] [address], [place] [address] Jun, [facility] [address] [id number] [address] [place] [address], [place] [address] Jun, [facility] [address] [id number] [address] [place] [address], [place] [address] Jun, [facility] [address] [id number] [address] [place] [address], [place] [address] 20 Jun, 2013 [facility] [address] [id number] [address] [place] [address], [place] [address] 18 Jun, 2013 [facility] [address] [id number] [address] [place] [address], [place] [address] 18 Jun, 2013 [facility] [address] [id number] [address] [place] [address], [place] [address] 17 Jun, 2013 [facility] [address] [id number] [address] [place] [address], [place] [address] 17 Jun, 2013 [facility] [address] [id number] [address] [place] [address], [place] [address] 13 Jun, 2013 [facility] [address] [id number] [address] [place] [address], [place] [address] 12 Jun, 2013 [facility] [address] [id number] [address] [place] [address], [place] [address] 12 Jun, 2013 [facility] [address] [id number] [address] [place] [address], [place] [address] 09 Jun, 2013 [facility] [address] [id number] [address] [place] [address], [place] [address] 05 Jun, 2013 [facility] [address] [id number] [address] [place] [address], [place] [address] 05 Jun, 2013 [facility] [address] [id number] [address] [place] [address], [place] [address] 04 Jun, 2013 [facility] [address] [id number] [address] [place] [address], [place] [address] 04 Jun, 2013 [facility] [address] [id number] [address] [place] [address], [place] [address] 17 May, 2013 [facility] [address] [id number] [address] [place] [address], [place] [address] 17 May, 2013 [facility] [address] [id number] [address] [place] [address], [place] [address] May, [facility] [address] [id number] [address] [place] [address], [place] [address] May, [facility] [address] [id number] [address] [place] [address], [place] [address] May, [facility] [address] [id number] [address] [place] [address], [place] [address] May, [facility] [address] [id number] [address] [place] [address], [place] [address] Apr, [facility] [address] [id number] [address] [place] [address], [place] [address] Apr, [facility] [address] [id number] [address] [place] [address], [place] [address] Apr, [facility] [address] [id number] [address] [place] [address], [place] [address] Apr, [facility] [address] [id number] [address] [place] [address], [place] [address] Apr, [facility] [address] [id number] [address] [place] [address], [place] [address] Apr, [facility] [address] [id number] [address] [place] [address], [place] [address] Apr, [facility] [address] [id number] [address] [place] [address], [place] [address] Apr, [facility] [address] [id number] [address] [place] [address], [place] [address] 26 Mar, 2013 [facility] [address] [id number] [address] [place] [address] [address] 24 Sep2012 [facility] [address] [id number] [address] [place] [address], [place] [address] 17 Mar, 2013 [facility] [address] [id number] [address] [place] [address], [place] [address] 17 Mar, 2013 [facility] [address] [id number] [address] [place] [address] [place] [address] 11 Mar, 2013 [facility] [address] [id number] [address] [place] [address], [place] [address] 10 Mar, 2013 [facility] [address] [id number] [address] [place] [address], [place] [address] 05 Mar, 2013 [facility] [address] [id number] [address] [place] [address], [place] [address] 04 Mar, 2013 [facility] [address] [id number] [address] [place] [address], [place] [address] 20 Jan, 2013 [facility] [address] [id number] [address] [place] [address], [place] [address] Jan, [facility] [address] [id number] [address] [place] [address], [place] [address] 14 Jan, 2013 [facility] [address] [id number] [address] [place] [address], [place] [address] Jan, [facility] [address] [id number] [address] [place] [address], [place] [address] Jan, [facility] [address] [id number] [address] [place] [address], [place] [address] Jan, [facility] [address] [id number] [address] [place] [address], [place] [address] Dec, [facility] [address] [id number] [address] [place] [address], [place] [address] Dec, [facility] [address] [id number] [address] [place] [address], [place] [address] Dec, [facility] [address] [id number] [address] [place] [address], [place] [address] Dec, [facility] [address] [id number] [address] [place] [address], [place] [address] Dec, [facility] [address] [id number] [address] [place] [address], [place] [address] 17 Dec, 2012 [facility] [address] [id number] [address] [place] [address], [place] [address] 16 Dec, 2012 [facility] [address] [id number] [address] [place] [address], [place] [address] 16 Dec, 2012 [facility] [address] [id number] [address] [place] [address], [place] [address] 15 Dec, 2012 [facility] [address] [id number] [address] [place] [address], [place] [address] 10 Dec, 2012 [facility] [address] [id number] [address] [place] [address], [place] [address] 28 Dec, 2012 [facility] [address] [id number] [address] [place] [address], [place] [address] Dec, [facility] [address] [id number] [address] [place] [address], [place] [address] Dec, [facility] [address] [id number] [address] [place] [address], [place] [address] Dec, [facility] [address] [id number] [address] [place] [address], [place] [address] Dec, [facility] [address] [id number] [address] [place] [address], [place] [address] Dec, [facility] [address] [id number] [address] [place] [address], [place] [address] October, [facility] [address] [id number] [address] [place] [address], [place] [address] October, [facility] [address] [id number] [address] [place] [address], [place] [address] October, [facility] [address] [id number] [address] [place] [address], [place] [address] October, [facility] [address] [id number] [address] [place] [address], [place] [address] October, [facility] [address] [id number] [address] [place] [address], [place] [address] October, [facility] [address] [id number] [address] [place] [address], [place] [address] October, [facility] [address] [id number] [address] [place] [address], [place] [address] Oct, [facility] [address] [id number] [address] [place] [address], [place] [address] Oct, [facility] [address] [id number] [address] [place] [address], [place] [address] Oct, [facility] [address] [id number] [address] [place] [address], [place] [address] Oct, [facility] [address] [id number] [address] [place] [address], [place] [address] Oct, [facility] [address] [id number] [address] [place] [address], [place] [address] Oct, [facility] [address] [id number] [address] [place] [address], [place] [address] Oct, [facility] [address] [id number] [address] [place] [address], [place] [address] 15 Oct, 2012 [facility] [address] [id number] [address] [place] [address], [place] [address] Oct, [facility] [address] [id number] [address] [place] [address], [place] [address] Oct, [facility] [address] [id number] [address] [place] [address], [place] [address] Oct, [facility] [address] [id number] [address] [place] [address], [place] [address] Oct, [facility] [address] [id number] [address] [place] [address], [place] [address] Aug, [facility] [address] [id number] [address] [place] [address], [place] [address] Aug, [facility] [address] [id number] [address] [place] [address], [place] [address] 12 Aug, 2012 [facility] [address] [id number] [address] [place] [address], [place] [address] 06 Aug, 2012 [facility] [address] [id number] [address] [place] [address], [place] [address] 05 Aug, 2012 [facility] [address] [id number] [address] [place] [address], [place] [address] 05 Aug, 2012 [facility] [address] [id number] [address] [place] [address], [place] [address] 20 Aug, 2012 [facility] [address] [id number] [address] [place] [address], [place] [address] 14 Aug, 2012 [facility] [address] [id number] [address] [place] [address], [place] [address] 12 Aug, 2012 [facility] [address] [id number] [address] [place] [address], [place] [address] Aug, [facility] [address] [id number] [address] [place] [address], [place] [address] Jul, [facility] [address] [id number] [address] [place] [address], [place] [address] Jul, [facility] [address] [id number] [address] [place] [address], [place] [address] Jul, [facility] [address] [id number] [address] [place] [address], [place] [address] Jun, [facility] [address] [id number] [address] [place] [address], [place] [address] Jun, [facility] [address] [id number] [address] [place] [address], [place] [address] Jun, [facility] [address] [id number] [address] [place] [address], [place] [address] Jun, [facility] [address] [id number] [address] [place] [address], [place] [address] Jun, [facility] [address] [id number] [address] [place] [address], [place] [address] 14 Jun, 2012 [facility] [address] [id number] [address] [place] [address], [place] [address] 14 Jun, 2012 [facility] [address] [id number] [address] [place] [address], [place] [address] 13 Jun, 2012 [facility] [address] [id number] [address] [place] [address], [place] [address] 13 Jun, 2012 [facility] [address] [id number] [address] [place] [address], [place] [address] 11 Jun, 2012 [facility] [address] [id number] [address] [place] [address], [place] [address] 11 Jun, 2012 [facility] [address] [id number] [address] [place] [address], [place] [address] 11 Jun, 2012 [facility] [address] [id number] [address] [place] [address], [place] [address] 11 Jun, 2012 [facility] [address] [id number] [address] [place] [address], [place] [address] 07 Jun, 2012 [facility] [address] [id number] [address] [place] [address], [place] [address] 07 Jun, 2012 [facility] [address] [id number] [address] [place] [address], [place] [address] 06 Jun, 2012 [facility] [address] [id number] [address] [place] [address], [place] [address] 06 Jun, 2012 [facility] [address] [id number] [address] [place] [address], [place] [address] Jun, [facility] [address] [id number] [address] [place] [address], [place] [address] 06 Jun, 2012 [facility] [address] [id number] [address] [place] [address], [place] [address] 05 Jun, 2012 [facility] [address] [id number] [address] [place] [address], [place] [address] Jun, [facility] [address] [id number] [address] [place] [address], [place] [address] Jun, [facility] [address] [id number] [address] [place] [address], [place] [address] Jun, [facility] [address] [id number] [address] [place] [address], [place] [address] May, [facility] [address] [id number] [address] [place] [address], [place] [address] May, [facility] [address] [id number] [address] [place] [address], [place] [address] May, [facility] [address] [id number] [address] [place] [address], [place] [address] May, [facility] [address] [id number] [address] [place] [address], [place] [address] May, [facility] [address] [id number] [address] [place] [address], [place] [address] May, [facility] [address] [id number] [address] [place] [address], [place] [address] May, [facility] [address] [id number] [address] [place] [address], [place] [address] May, [facility] [address] [id number] [address] [place] [address], [place] [address] Apr, [facility] [address] [id number] [address] [place] [address] Apr, [facility] [address] [id number] [address] [place] [address], [place] [address] Apr, [facility] [address] [id number] [address] [place] [address], [place] [address] Apr, [facility] [address] [id number] [address] [place] [address] Apr, [facility] [address] [id number] [address] [place] [address], [place] [address] Apr, [facility] [address] [id number] [address] [place] [address], [place] [address] Apr, [facility] [address] [id number] [address] [place] [address], [place] [address] Apr, [facility] [address] [id number] [address] [place] [address], [place] [address] Apr, [facility] [address] [id number] [address] [place] [address], [place] [address] Apr, [facility] [address] [id number] [address] [place] [address], [place] [address] Apr, [facility] [address] [id number] [address] [place] [address], [place] [address] Apr, [facility] [address] [id number] [address] [place] [address], [place] [address] Mar, [facility] [address] [id number] [address] [place] [address], [place] [address] 18 Mar, 2012 [facility] [address] [id number] [address] [place] [address] Mar, [facility] [address] [id number] [address] [place] [address] Mar, [facility] [address] [id number] [address] [place] [id number] Mar, [facility] [address] [id number] [address] [place] [id number] Mar, [facility] [address] [id number] [address] [place] [address], [place] [address] Mar, [facility] [address] [id number] [address] [place] [address], [place] [address] Jan, [facility] [address] [id number] [address] [place] [address] Jan, [facility] [address] [id number] [facility] [id number] Jan, [facility] [address] [id number] [facility] [id number] Jan, [facility] [address] [id number] [address] [place] [address], [place] [address] Jan, [facility] [address] [id number] [address] [place] [address], [place] [address] Jan, [facility] [address] [id number] [address] [place] [address], [place] [address] Jan, [facility] [address] [id number] [address] [place] [address], [place] [address] Jan, [facility] [address] [id number] [address] [place] [address], [place] [address] Jan, [facility] [address] [id number] [address] [place] [address], [place] [address] Jan, [facility] [address] [id number] [address] [place] [address], [place] [address] Jan, [facility] [address] [id number] [address] [place] [address], [place] [address] Dec, [facility] [address] [id number] [address] [place] [address], [place] [address] Dec, [facility] [address] [id number] [address] [place] [address], [place] [address] Dec, [facility] [address] [id number] [address] [place] [address], [place] [address] Dec, [facility] [address] [id number] [address] [place] [address], [place] [address] Dec, [facility] [address] [id number] [address] [place] [address], [place] [address] Dec, [facility] [address] [id number] [address] [place] [address] [place] [address] 18 Jan, 2012 [facility] [address] [id number] [address] [place] [address], [place] [address] 17 Jan, 2012 [facility] [address] [id number] [address] [place] [address], [place] [address] 16 Jan, 2012 [facility] [address] [id number] [address] [place] [address], [place] [address] 13 Jan, 2012 [facility] [address] [id number] [address] [place] [address], [place] [address] 13 Jan, 2012 [facility] [address] [id number] [address] [place] [address], [place] [address] 02 Jan, 2012 [facility] [address] [id number] [address] [place] [address], [place] [address] Dec, [facility] [address] [id number] [address] [place] [address], [place] [address] Dec, [facility] [address] [id number] [address] [place] [address], [place] [address] Dec, [facility] [address] [id number] [address] [place] [address], [place] [address] Dec, [facility] [address] [id number] [address] [place] [address], [place] [address] 15 Dec, 2011 [facility] [address] [id number] [address] [place] [address], [place] [address] Dec, [facility] [address] [id number] [address] [place] [address], [place] [address] Dec, [facility] [address] [id number] [address] [place] [address], [place] [address] October, [facility] [address] [id number] [address] [place] [address], [place] [address] October, [facility] [address] [id number] [address] [place] [address], [place] [address] October, [facility] [address] [id number] [address] [place] [address], [place] [address] October, [facility] [address] [id number] [address] [place] [address], [place] [address] October, [facility] [address] [id number] [address] [place] [address], [place] [address] October, [facility] [address] [id number] [address] [place] [address], [place] [address] Oct, [facility] [address] [id number] [address] [place] [address], [place] [address] 24 Oct, 2011 [facility] [address] [id number] [address] [place] [address], [place] [address] Oct, [facility] [address] [id number] [address] [place] [address], [place] [address] Oct, [facility] [address] [id number] [address] [place] [address], [place] [address] Oct, [facility] [address] [id number] [address] [place] [address], [place] [address] Oct, [facility] [address] [id number] [address] [place] [address], [place] [address] Oct, [facility] [address] [id number] [address] [place] [address], [place] [address] Aug, [facility] [address] [id number] [address] [place] [address], [place] [address] 29 Sep, 2011 [facility] [address] [id number] [address] [place] [address], [place] [address] 19 Sep, 2011 [facility] [address] [id number] [address] [place] [address], [place] [address] 13 Sep, 2011 [facility] [address] [id number] [address] [place] [address], [place] [address] 05 Sep, 2011 [facility] [address] [id number] [address] [place] [address], [place] [address] Aug, [facility] [address] [id number] [address] [place] [address], [place] [address] Aug, [facility] [address] [id number] [address] [place] [address], [place] [address] Aug, [facility] [address] [id number] [address] [place] [address], [place] [address] Aug, [facility] [address] [id number] [address] [place] [address], [place] [address] Jul, [facility] [address] [id number] [address] [place] [address], [place] [address] Jul, [facility] [address] [id number] [address] [place] [address], [place] [address] Jul, [facility] [address] [id number] [address] [place] [address], [place] [address] Jul, [facility] [address] [id number] [address] [place] [address], [place] [address] Jun, [facility] [address] [id number] [address] [place] [address], [place] [address] Jun, [facility] [address] [id number] [address] [place] [address], [place] [address] May, [facility] [address] [id number] [address] [place] [address], [place] [address] May, [facility] [address] [id number] [address] [place] [address], [place] [address] May, [facility] [address] [id number] [address] [place] [address], [place] [address] May, [facility] [address] [id number] [address] [place] [address], [place] [address] 07 May, 2011 [facility] [address] [id number] [address] [place] [address], [place] [address] Apr, [facility] [address] [id number] [address] [place] [address] Apr, [facility] [address] [id number] [address] [place] [address] Apr, [facility] [address] [id number] [address] [place] [address] Jan, [facility] [address] [id number] [address] [place] [address] Dec, [facility] [address] [id number] [address] [place] [address] October, [facility] [address] [id number] [address] [place] [address] Jun, [facility] [address] [id number] [address] [place] [address] Apr, [facility] [address] [id number] [address] [place] [address] Apr, [facility] [address] [id number] [address] [place] [address] Apr, [facility] [address] [id number] [address] [place] [address] Jun, IMMUNIZATIONS No Known Immunizations SOCIAL HISTORY Never Assessed REASON FOR VISIT [facility] [place] PLAN OF CARE [...]
--- OUTSIDE RECORDS SUMMARY | 2020-01-25 13:05 | XMS REPORT ---
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 Name Role Phone Migration, Doctor Unavailable Unavailable PROBLEMS Type Condition ICD9-CM Code PDG10-JV Code Onset Dates Condition S tatus SNOMED Code Problem Attention deficit R41.840 Active 76 994845 Problem Chronic hepatitis C without hepatic coma B18.2 Active 774101117 Problem Cannabis abuse F12.10 Active 53900 009 Problem Bipolar disorder, in partial remission, most rec ent episode hypomanic F31.71 Active 279191999 Problem Attention deficit hyperactivity disorder (ADHD), combi luciano type F90.2 Active 96241626 Problem Bipolar 1 disorder F31.9 Active 3 26987834 Problem H/O laminectomy Z98.89 Active 1616 01397 Problem Other chronic pain G89.29 Active 8 2551839 Problem Anxiety disorder, unspecified type F41.9 Active [id number] ALLERGIES No Information ENCOUNTERS Encounter Location Date Diagnosis [facility] [address] [facility] [id number] [address] [place] [address] Oct, [facility] [address] [facility] [id number] [address] [place] [address] Aug, Bipolar disorder, in partial remission, most recent episode hypomanic F31.71 ; Attention deficit hyperactivity disorder (ADHD), combined type F90.2 and Anxiety disorder, unspecified type F41.9 [facility] [address] [facility] [id number] [address] [place] [address] Aug, [facility] [address] [facility] [id number] [address] [place] [address] Aug, Bipolar disorder, in partial remission, most recent episode hypomanic F31.71 [facility] [address] [facility] [id number] [address] [place] [address] Aug, [facility] [address] [id number] [address] [place] [address] Aug, Bipolar disorder, in partial remission, most recent episode hypomanic F31.71 [facility] [address] [id number] [address] [place] [address] Aug, Bipolar disorder, in partial remission, most recent episode hypomanic F31.71 ; Attention deficit hyperactivity disorder (ADHD), combined type F90.2 and Anxiety disorder, unspecified type F41.9 [facility] [address] [id number] [address] [place] [address] Aug, Low back pain M54.5 and Pain in left wrist M25.532 [facility] [address] [id number] [address] [place] [address] Aug, [facility] [address] [id number] [address] [place] [address] Jun, [facility] [address] [facility] [id number] [address] [place] [address] Apr, Bipolar disorder, in partial remission, most recent episode hypomanic F31.71 [facility] [address] [id number] [address] [place] [address] Apr, [facility] [address] [id number] [address] [place] [address] Apr, Bipolar disorder, in partial remission, most recent episode hypomanic F31.71 ; Attention deficit hyperactivity disorder (ADHD), combined type F90.2 ; Anxiety disorder, unspecified type F41.9 and Other fci (current) 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 Z79.899 [facility] [address] [id number] [address] [place] [address] Apr, Bipolar disorder, in partial remission, most recent episode hypomanic F31.71 [facility] [address] [id number] [address] [place] [address] Apr, Bipolar disorder, in partial remission, most recent episode hypomanic F31.71 [facility] [address] [facility] [id number] [address] [place] [address] Mar, [facility] [address] [id number] [address] [place] [address] Mar, Bipolar disorder, in partial remission, most recent episode hypomanic F31.71 ; Encounter for immunization Z23 and Low back pain M54.5 [facility] [address] [id number] [address] [place] [address] Mar, Bipolar disorder, in partial remission, most recent episode hypomanic F31.71 [facility] [address] [id number] [address] [place] [address] Mar, Bipolar disorder, in partial remission, most recent episode hypomanic F31.71 [facility] [address] [facility] [id number] [address] [place] [address] Jan, Bipolar disorder, in partial remission, most recent episode hypomanic F31.71 [facility] [address] [facility] [id number] [address] [place] [address] Jan, Bipolar disorder, in partial remission, most recent episode hypomanic F31.71 [facility] [address] [facility] [id number] [address] [place] [address] Dec, Bipolar disorder, in partial remission, most recent episode hypomanic F31.71 [facility] [address] [facility] [id number] [address] [place] [address] Dec, Bipolar disorder, in partial remission, most recent episode hypomanic F31.71 ; Attention deficit hyperactivity disorder (ADHD), combined type F90.2 ; Anxiety disorder, unspecified type F41.9 and Other fci (current) 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 Z79.899 [facility] [address] [facility] [id number] [address] [place] [address] Dec, Bipolar disorder, in partial remission, most recent episode hypomanic F31.71 [facility] [address] [facility] [id number] [address] [place] [address] Dec, Bipolar disorder, in partial remission, most recent episode hypomanic F31.71 [facility] [address] [id number] [address] [place] [address] October, Bipolar disorder, in partial remission, most recent episode hypomanic F31.71 [facility] [address] [id number] [address] [place] [address] October, [facility] [address] [id number] [address] [place] [address] October, [facility] [address] [id number] [address] [place] [address] Oct, Bipolar disorder, in partial remission, most recent episode hypomanic F31.71 ; Attention deficit hyperactivity disorder (ADHD), combined type F90.2 ; Anxiety disorder, unspecified type F41.9 and Encounter for drug screening Z02.83 [facility] [address] [id number] [address] [place] [address] Oct, Bipolar disorder, in partial remission, most recent episode hypomanic F31.71 [facility] [address] [id number] [address] [place] [address] Oct, Bipolar disorder, in partial remission, most recent episode hypomanic F31.71 [facility] [address] [id number] [address] [place] [address] Aug, Bipolar disorder, in partial remission, most recent episode hypomanic F31.71 [facility] [address] [id number] [address] [place] [address] Aug, Bipolar disorder, in partial remission, most recent episode hypomanic F31.71 [facility] [address] [id number] [address] [place] [address] Aug, Bipolar disorder, in partial remission, most recent episode hypomanic F31.71 [facility] [address] [id number] [address] [place] [address] Jul, Bipolar disorder, in partial remission, most recent episode hypomanic F31.71 ; Attention deficit hyperactivity disorder (ADHD), combined type F90.2 and Anxiety disorder, unspecified type F41.9 [facility] [address] [id number] [address] [place] [address] Jul, Bipolar disorder, in partial remission, most recent episode hypomanic F31.71 [facility] [address] [id number] [address] [place] [address] Jun, Bipolar disorder, in partial remission, most recent episode hypomanic F31.71 [facility] [address] [id number] [address] [place] [address] May, Bipolar disorder, in partial remission, most recent episode hypomanic F31.71 [facility] [address] [facility] [id number] [address] [place] [address] May, Bipolar disorder, in partial remission, most recent episode hypomanic F31.71 [facility] [address] [facility] [id number] [address] [place] [address] Apr, [facility] [address] [id number] [address] [place] [address] Apr, Bipolar disorder, in partial remission, most recent episode hypomanic F31.71 ; Attention deficit hyperactivity disorder (ADHD), combined type F90.2 ; Anxiety disorder, unspecified type F41.9 and Cannabis abuse F12.10 [facility] [address] [id number] [address] [place] [address] Apr, Attention deficit hyperactiv ity disorder (ADHD), combined type F90.2 [facility] [address] [id number] [address] [place] [address] Mar, Attention deficit hyperactiv ity disorder (ADHD), combined type F90.2 [facility] [address] [facility] [id number] [address] [place] [address] Mar, Anxiety disorder, unspecifie d type F41.9 [facility] [address] [facility] [id number] [address] [place] [address] Jan, Attention deficit hyperactiv ity disorder (ADHD), combined type F90.2 [facility] [address] [facility] [id number] [address] [place] [address] Jan, Anxiety disorder, unspecifie d type F41.9 [facility] [address] [facility] [id number] [address] [place] [address] Jan, Other chronic pain G89.29 ; Chronic hepatitis C without hepatic coma B18.2 and Bipolar 1 disorder F31.9 [facility] [address] [facility] [id number] [address] [place] [address] Dec, Attention deficit hyperactiv ity disorder (ADHD), combined type F90.2 [facility] [address] [facility] [id number] [address] [place] [address] Dec, Bipolar disorder, in partial remission, most recent episode hypomanic F31.71 ; Attention deficit hyperactivity disorder (ADHD), combined type F90.2 and Anxiety disorder, unspecified type F41.9 [facility] [address] [facility] [id number] [address] [place] [address] Dec, Bipolar disorder, in partial remission, most recent episode hypomanic F31.71 ; Attention deficit hyperactivity disorder (ADHD), combined type F90.2 and Anxiety disorder, unspecified type F41.9 [facility] [address] [facility] [id number] [address] [place] [address] Dec, Bipolar 1 disorder F31.9 and Attention deficit R41.840 [facility] [address] [facility] [id number] [address] [place] [address] Oct, Other chronic pain G89.29 ; Alopecia L65.9 and Screening, lipid Z13.220 [facility] [address] [facility] [id number] [address] [place] [address] Oct, [facility] [address] [facility] [id number] [address] [place] [address] Aug, [facility] [address] [facility] [id number] [address] [place] [address] Aug, Eustachian tube dysfunction, right H69.81 ; Vertigo R42 and Other chronic pain G89.29 [facility] [address] [id number] [address] [place] [address] Aug, [facility] [address] [id number] [address] [place] [address] Jun, [facility] [address] [id number] [address] [place] [address] Jun, Low back pain M54.5 and Othe r chronic pain G89.29 [facility] [address] [id number] [address] [place] [address] Jun, [facility] [address] [id number] [address] [place] [address] May, [facility] [address] [id number] [address] [place] [address] Jan, [facility] [address] [id number] [address] [place] [address] Dec, [facility] [address] [id number] [address] [place] [address] Dec, [facility] [address] [id number] [address] [place] [address] Jun, [facility] [address] [id number] [address] [place] [address] Apr, Eustachian tube dysfunction, unspecified laterality H69.80 ; Hot flashes N95.1 and Encounter for immunization Z23 [facility] [address] [id number] [address] [place] [address] Jan, [facility] [address] [id number] [address] [place] [address] Jan, [facility] [address] [id number] [address] [place] [address] Jan, [facility] [address] [id number] [address] [place] [address] Jan, [facility] [address] [id number] [address] [place] [address] Jan, Encounter to establish care V65.8 ; Bipolar 1 disorder 296.7 ; Abdominal pain 789.00 ; Constipation 564.00 ; Hard of hearing 389.9 and Drug abuse 305.90 [facility] [address] [id number] [address] [place] [address] Dec, [facility] [address] [id number] [address] [place] [address] October, [facility] [address] [id number] [address] [place] [address] October, [facility] [address] [id number] [address] [place] [address] Oct, [facility] [address] [id number] [address] [place] [address] Oct, [facility] [address] [id number] [address] [place] [address] Oct, [facility] [address] [id number] [address] [place] [address] Aug, [facility] [address] [id number] [address] [place] [address] Aug, [facility] [address] [id number] [address] [place] [address] Aug, [facility] [address] [id number] [address] [place] [address] Aug, [facility] [address] [id number] [address] [place] [address] Aug, [facility] [address] [id number] [address] [place] [address] Aug, [facility] [address] [id number] [address] [place] [address], [place] [address] Aug, 2014 [facility] [address] [id number] [address] [place] [address], [place] [address] Aug, 2014 [facility] [address] [id number] [address] [place] [address], [place] [address] Aug, 2014 [facility] [address] [id number] [address] [place] [address], [place] [address] Aug, 2014 [facility] [address] [id number] [address] [place] [address], [place] [address] Aug, 2014 [facility] [address] [id number] [address] [place] [address], [place] [address] Aug, 2014 [facility] [address] [id number] [address] [place] [address], [place] [address] Aug, 2014 [facility] [address] [id number] [address] [place] [address], [place] [address] Aug, 2014 [facility] [address] [id number] [address] [place] [address], [place] [address] Aug, [facility] [address] [id number] [address] [place] [address], [place] [address] Jul, [facility] [address] [id number] [address] [place] [address], [place] [address] Jul, [facility] [address] [id number] [address] [place] [address], [place] [address] Jul, [facility] [address] [id number] [address] [place] [address], [place] [address] Jul, [facility] [address] [id number] [address] [place] [address], [place] [address] Jul, [facility] [address] [id number] [address] [place] [address], [place] [address] Jul, [facility] [address] [id number] [address] [place] [address], [place] [address] Jul, [facility] [address] [id number] [address] [place] [address], [place] [address] Jul, [facility] [address] [id number] [address] [place] [address], [place] [address] Jun, [facility] [address] [id number] [address] [place] [address], [place] [address] Jun, [facility] [address] [id number] [address] [place] [address], [place] [address] Jun, [facility] [address] [id number] [address] [place] [address], [place] [address] Jun, [facility] [address] [id number] [address] [place] [address], [place] [address] Jun, [facility] [address] [id number] [address] [place] [address], [place] [address] Jun, [facility] [address] [id number] [address] [place] [address], [place] [address] Jun, [facility] [address] [id number] [address] [place] [address], [place] [address] Jun, [facility] [address] [id number] [address] [place] [address], [place] [address] Jun, [facility] [address] [id number] [address] [place] [address], [place] [address] Jun, [facility] [address] [id number] [address] [place] [address], [place] [address] Jun, [facility] [address] [id number] [address] [place] [address], [place] [address] May, [facility] [address] [id number] [address] [place] [address], [place] [address] May, [facility] [address] [id number] [address] [place] [address], [place] [address] May, [facility] [address] [id number] [address] [place] [address], [place] [address] May, [facility] [address] [id number] [address] [place] [address], [place] [address] May, [facility] [address] [id number] [address] [place] [address], [place] [address] May, [facility] [address] [id number] [address] [place] [address], [place] [address] May, [facility] [address] [id number] [address] [place] [address], [place] [address] Apr, [facility] [address] [id number] [address] [place] [address], [place] [address] Apr, [facility] [address] [id number] [address] [place] [address], [place] [address] Apr, [facility] [address] [id number] [address] [place] [address], [place] [address] Apr, [facility] [address] [id number] [address] [place] [address], [place] [address] Apr, [facility] [address] [id number] [address] [place] [address], [place] [address] Apr, [facility] [address] [id number] [address] [place] [address], [place] [address] Mar, [facility] [address] [id number] [address] [place] [address], [place] [address] 29 Mar, 2013 [facility] [address] [id number] [address] [place] [address], [place] [address] 10 Mar, 2013 [facility] [address] [id number] [address] [place] [address], [place] [address] 10 Mar, 2013 [facility] [address] [id number] [address] [place] [address], [place] [address] Mar, 2013 [facility] [address] [id number] [address] [place] [address], [place] [address] Mar, [facility] [address] [id number] [address] [place] [address], [place] [address] Jan, [facility] [address] [id number] [address] [place] [address], [place] [address] Jan, [facility] [address] [id number] [address] [place] [address], [place] [address] Jan, [facility] [address] [id number] [address] [place] [address], [place] [address] Jan, [facility] [address] [id number] [address] [place] [address], [place] [address] Dec, [facility] [address] [id number] [address] [place] [address], [place] [address] Dec, [facility] [address] [id number] [address] [place] [address], [place] [address] Dec, [facility] [address] [id number] [address] [place] [address], [place] [address] Dec, [facility] [address] [id number] [address] [place] [address], [place] [id number] Dec, [facility] [address] [id number] [address] [place] [address], [place] [address] Dec, [facility] [address] [id number] [address] [place] [address], [place] [id number] Dec, [facility] [address] [id number] [address] [place] [address], [place] [id number] Dec, [facility] [address] [id number] [address] [place] [address], [place] [id number] Dec, [facility] [address] [id number] [address] [place] [address], [place] [id number] Dec, [facility] [address] [id number] [address] [place] [address], [place] [id number] Dec, [facility] [address] [id number] [address] [place] [address], [place] [id number] Dec, [facility] [address] [id number] [address] [place] [address], [place] [id number] October, [facility] [address] [id number] [address] [place] [address], [place] [id number] October, [facility] [address] [id number] [address] [place] [address], [place] [id number] October, [facility] [address] [id number] [address] [place] [address], [place] [id number] October, [facility] [address] [id number] [address] [place] [address], [place] [id number] October, [facility] [address] [id number] [address] [place] [address], [place] [id number] October, [facility] [address] [id number] [address] [place] [address], [place] [id number] Oct, [facility] [address] [id number] [address] [place] [address], [place] [id number] Oct, [facility] [address] [id number] [address] [place] [address], [place] [id number] Oct, [facility] [address] [id number] [address] [place] [address], [place] [id number] Oct, [facility] [address] [id number] [address] [place] [address], [place] [id number] Oct, [facility] [address] [id number] [address] [place] [address], [place] [id number] Oct, [facility] [address] [id number] [address] [place] [address], [place] [id number] Oct, [facility] [address] [id number] [address] [place] [address], [place] [id number] Oct, [facility] [address] [id number] [address] [place] [address], [place] [id number] Oct, [facility] [facility] [address] [id number] [facility] [place] [id number] 09 Oct, 2013 [facility] [address] [id number] [facility] [place] [address] Oct, [facility] [address] [id number] [address] [place] [address], [place] [address] Oct, [facility] [address] [id number] [address] [place] [address], [place] [address] Aug, [facility] [address] [id number] [address] [place] [address], [place] [address] Aug, [facility] [address] [id number] [address] [place] [address], [place] [address] Aug, [facility] [address] [id number] [address] [place] [address], [place] [address] Aug, [facility] [address] [id number] [address] [place] [address], [place] [address] Aug, [facility] [address] [id number] [address] [place] [address], [place] [id number] 05 Aug, 2013 [facility] [address] [id number] [address] [place] [address], [place] [address] Aug, [facility] [address] [id number] [address] [place] [address], [place] [address] Aug, [facility] [address] [id number] [address] [place] [address], [place] [address] Aug, [facility] [address] [id number] [address] [place] [address], [place] [address] Aug, [facility] [address] [id number] [address] [place] [address], [place] [address] Aug, [facility] [address] [id number] [address] [place] [address], [place] [address] Aug, [facility] [address] [id number] [address] [place] [address], [place] [address] Aug, [facility] [address] [id number] [address] [place] [address], [place] [address] 20 Aug, 2013 [facility] [address] [id number] [address] [place] [address], [place] [address] 14 Aug, 2013 [facility] [address] [id number] [address] [place] [address], [place] [address] 14 Aug, 2013 [facility] [address] [id number] [address] [place] [address], [place] [address] 14 Aug, 2013 [facility] [address] [id number] [address] [place] [address], [place] [address] 14 Aug, 2013 [facility] [address] [id number] [address] [place] [address], [place] [address] 07 Aug, 2013 [facility] [address] [id number] [address] [place] [address], [place] [address] 07 Aug, 2013 [facility] [address] [id number] [address] [place] [address], [place] [address] 06 Aug, 2013 [facility] [address] [id number] [address] [place] [address], [place] [address] 06 Aug, 2013 [facility] [address] [id number] [address] [place] [address], [place] [address] 04 Aug, 2013 [facility] [address] [id number] [address] [place] [address], [place] [address] 04 Aug, 2013 [facility] [address] [id number] [address] [place] [address], [place] [address] Aug, [facility] [address] [id number] [address] [place] [address], [place] [address] Jul, [facility] [address] [id number] [address] [place] [address], [place] [address] Jul, [facility] [address] [id number] [address] [place] [address], [place] [address] Jul, [facility] [address] [id number] [address] [place] [address], [place] [address] Jul, [facility] [address] [id number] [address] [place] [address], [place] [address] Jul, [facility] [address] [id number] [address] [place] [address], [place] [address] Jul, [facility] [address] [id number] [address] [place] [address], [place] [address] Jul, [facility] [address] [id number] [address] [place] [address], [place] [address] Jul, [facility] [address] [id number] [address] [place] [address], [place] [address] Jul, [facility] [address] [id number] [address] [place] [address], [place] [address] Jul, [facility] [address] [id number] [address] [place] [address], [place] [address] Jul, [facility] [address] [id number] [address] [place] [address], [place] [address] Jul, [facility] [address] [id number] [address] [place] [address], [place] [address] Jul, [facility] [address] [id number] [address] [place] [address], [place] [address] Jul, [facility] [address] [id number] [address] [place] [address], [place] [address] Jul, [facility] [address] [id number] [address] [place] [address], [place] [address] Jul, [facility] [address] [id number] [address] [place] [address], [place] [address] Jul, [facility] [address] [id number] [address] [place] [address], [place] [address] Jul, [facility] [address] [id number] [address] [place] [address], [place] [address] Jul, [facility] [address] [id number] [address] [place] [address], [place] [address] Jul, [facility] [address] [id number] [address] [place] [address], [place] [address] Jun, [facility] [address] [id number] [address] [place] [address], [place] [address] Jun, [facility] [address] [id number] [address] [place] [address], [place] [address] Jun, [facility] [address] [id number] [address] [place] [address], [place] [address] Jun, [facility] [address] [id number] [address] [place] [address], [place] [address] Jun, [facility] [address] [id number] [address] [place] [address], [place] [address] Jun, [facility] [address] [id number] [address] [place] [address], [place] [address] Jun, [facility] [address] [id number] [address] [place] [address], [place] [address] Jun, [facility] [address] [id number] [address] [place] [address], [place] [address] Jun, [facility] [address] [id number] [address] [place] [address], [place] [address] Jun, [facility] [address] [id number] [address] [place] [address], [place] [address] Jun, [facility] [address] [id number] [address] [place] [address], [place] [address] Jun, [facility] [address] [id number] [address] [place] [address], [place] [address] Jun, [facility] [address] [id number] [address] [place] [address], [place] [address] Jun, [facility] [address] [id number] [address] [place] [address], [place] [address] 20 Jun, 2013 [facility] [address] [id number] [address] [place] [address], [place] [address] 18 Jun, 2013 [facility] [address] [id number] [address] [place] [address], [place] [address] 18 Jun, 2013 [facility] [address] [id number] [address] [place] [address], [place] [address] 17 Jun, 2013 [facility] [address] [id number] [address] [place] [address], [place] [address] 17 Jun, 2013 [facility] [address] [id number] [address] [place] [address], [place] [address] 13 Jun, 2013 [facility] [address] [id number] [address] [place] [address], [place] [address] 12 Jun, 2013 [facility] [address] [id number] [address] [place] [address], [place] [address] 12 Jun, 2013 [facility] [address] [id number] [address] [place] [address], [place] [address] 09 Jun, 2013 [facility] [address] [id number] [address] [place] [address], [place] [id number] 05 Jun, 2013 [facility] [address] [id number] [address] [place] [address], [place] [address] 05 Jun, 2013 [facility] [address] [id number] [address] [place] [address], [place] [address] 04 Jun, 2013 [facility] [address] [id number] [address] [place] [address], [place] [address] 04 Jun, 2013 [facility] [address] [id number] [address] [place] [address], [place] [address] 17 May, 2013 [facility] [address] [id number] [address] [place] [address], [place] [address] 17 May, 2013 [facility] [address] [id number] [address] [place] [address], [place] [address] May, [facility] [address] [id number] [address] [place] [address], [place] [address] May, [facility] [address] [id number] [address] [place] [address], [place] [address] May, [facility] [address] [id number] [address] [place] [address], [place] [address] May, [facility] [address] [id number] [address] [place] [address], [place] [address] Apr, [facility] [address] [id number] [address] [place] [address], [place] [address] Apr, [facility] [address] [id number] [address] [place] [address], [place] [address] Apr, [facility] [address] [id number] [address] [place] [address], [place] [address] Apr, [facility] [address] [id number] [address] [place] [address], [place] [address] Apr, [facility] [address] [id number] [address] [place] [address], [place] [address] Apr, [facility] [address] [id number] [address] [place] [address], [place] [address] Apr, [facility] [address] [id number] [address] [place] [address], [place] [address] Apr, [facility] [address] [id number] [address] [place] [address], [place] [address] 26 Mar, 2013 [facility] [address] [id number] [address] [place] [address], [place] [address] 24 Sep2012 [facility] [address] [id number] [address] [place] [address], [place] [address] 17 Mar, 2013 [facility] [address] [id number] [address] [place] [address], [place] [address] 17 Mar, 2013 [facility] [address] [id number] [address] [place] [address] [place] [address] 11 Mar, 2013 [facility] [address] [id number] [address] [place] [address], [place] [address] 10 Mar, 2013 [facility] [address] [id number] [address] [place] [address], [place] [address] 05 Mar, 2013 [facility] [address] [id number] [address] [place] [address], [place] [address] 04 Mar, 2013 [facility] [address] [id number] [address] [place] [address], [place] [address] 20 Jan, 2013 [facility] [address] [id number] [address] [place] [address], [place] [address] Jan, [facility] [address] [id number] [address] [place] [address], [place] [address] 14 Jan, 2013 [facility] [address] [id number] [address] [place] [address], [place] [address] Jan, [facility] [address] [id number] [address] [place] [address], [place] [address] Jan, [facility] [address] [id number] [address] [place] [address], [place] [address] Jan, [facility] [address] [id number] [address] [place] [address], [place] [address] Dec, [facility] [address] [id number] [address] [place] [address], [place] [address] Dec, [facility] [address] [id number] [address] [place] [address], [place] [address] Dec, [facility] [address] [id number] [address] [place] [address], [place] [address] Dec, [facility] [address] [id number] [address] [place] [address], [place] [address] Dec, [facility] [address] [id number] [address] [place] [address], [place] [address] 17 Dec, 2012 [facility] [address] [id number] [address] [place] [address], [place] [address] 16 Dec, 2012 [facility] [address] [id number] [address] [place] [address], [place] [address] 16 Dec, 2012 [facility] [address] [id number] [address] [place] [address], [place] [address] 15 Dec, 2012 [facility] [address] [id number] [address] [place] [address], [place] [address] 10 Dec, 2012 [facility] [address] [id number] [address] [place] [address], [place] [address] 28 Dec, 2012 [facility] [address] [id number] [address] [place] [address], [place] [address] Dec, [facility] [address] [id number] [address] [place] [address], [place] [address] Dec, [facility] [address] [id number] [address] [place] [address], [place] [address] Dec, [facility] [address] [id number] [address] [place] [address], [place] [address] Dec, [facility] [address] [id number] [address] [place] [address], [place] [address] Dec, [facility] [address] [id number] [address] [place] [address], [place] [address] October, [facility] [address] [id number] [address] [place] [address], [place] [address] October, [facility] [address] [id number] [address] [place] [address], [place] [address] October, [facility] [address] [id number] [address] [place] [address], [place] [address] October, [facility] [address] [id number] [address] [place] [address], [place] [address] October, [facility] [address] [id number] [address] [place] [address], [place] [address] October, [facility] [address] [id number] [address] [place] [address], [place] [address] October, [facility] [address] [id number] [address] [place] [address], [place] [address] Oct, [facility] [address] [id number] [address] [place] [address], [place] [address] Oct, [facility] [address] [id number] [address] [place] [address], [place] [address] Oct, [facility] [address] [id number] [address] [place] [address], [place] [address] Oct, [facility] [address] [id number] [address] [place] [address], [place] [address] Oct, [facility] [address] [id number] [address] [place] [address], [place] [address] Oct, [facility] [address] [id number] [address] [place] [address], [place] [address] Oct, [facility] [address] [id number] [address] [place] [address], [place] [address] 15 Oct, 2012 [facility] [address] [id number] [address] [place] [address], [place] [address] Oct, [facility] [address] [id number] [address] [place] [address], [place] [address] Oct, [facility] [address] [id number] [address] [place] [address], [place] [address] Oct, [facility] [address] [id number] [address] [place] [address], [place] [address] Oct, [facility] [address] [id number] [address] [place] [address], [place] [address] Aug, [facility] [address] [id number] [address] [place] [address], [place] [address] Aug, [facility] [address] [id number] [address] [place] [address], [place] [address] 12 Aug, 2012 [facility] [address] [id number] [address] [place] [address], [place] [address] 06 Aug, 2012 [facility] [address] [id number] [address] [place] [address], [place] [id number] 05 Aug, 2012 [facility] [address] [id number] [address] [place] [address], [place] [address] 05 Aug, 2012 [facility] [address] [id number] [address] [place] [address], [place] [address] 20 Aug, 2012 [facility] [address] [id number] [address] [place] [address], [place] [id number] 14 Aug, 2012 [facility] [address] [id number] [address] [place] [address], [place] [address] 12 Aug, 2012 [facility] [address] [id number] [address] [place] [address], [place] [address] Aug, [facility] [address] [id number] [address] [place] [address], [place] [address] Jul, [facility] [address] [id number] [address] [place] [address], [place] [address] Jul, [facility] [address] [id number] [address] [place] [address], [place] [address] Jul, [facility] [address] [id number] [address] [place] [address], [place] [id number] Jun, [facility] [address] [id number] [address] [place] [address], [place] [id number] Jun, [facility] [address] [id number] [address] [place] [address], [place] [address] Jun, [facility] [address] [id number] [address] [place] [address], [place] [id number] Jun, [facility] [address] [id number] [address] [place] [address], [place] [id number] Jun, [facility] [address] [id number] [address] [place] [address], [place] [id number] 14 Jun, 2012 [facility] [address] [id number] [address] [place] [address], [place] [id number] 14 Jun, 2012 [facility] [address] [id number] [address] [place] [address], [place] [id number] 13 Jun, 2012 [facility] [address] [id number] [address] [place] [address], [place] [id number] 13 Jun, 2012 [facility] [address] [id number] [address] [place] [address], [place] [id number] 11 Jun, 2012 [facility] [address] [id number] [address] [place] [address], [place] [id number] 11 Jun, 2012 [facility] [address] [id number] [address] [place] [address], [place] [id number] 11 Jun, 2012 [facility] [address] [id number] [address] [place] [address], [place] [id number] 11 Jun, 2012 [facility] [address] [id number] [address] [place] [address], [place] [id number] 07 Jun, 2012 [facility] [address] [id number] [address] [place] [address], [place] [id number] 07 Jun, 2012 [facility] [address] [id number] [address] [place] [address], [place] [id number] 06 Jun, 2012 [facility] [address] [id number] [address] [place] [address], [place] [id number] 06 Jun, 2012 [facility] [address] [id number] [address] [place] [address], [place] [address] Jun, [facility] [address] [id number] [address] [place] [address], [place] [id number] 06 Jun, 2012 [facility] [address] [id number] [address] [place] [address], [place] [id number] 05 Jun, 2012 [facility] [address] [id number] [address] [place] [address], [place] [address] Jun, [facility] [address] [id number] [address] [place] [address], [place] [address] Jun, [facility] [address] [id number] [address] [place] [address], [place] [address] Jun, [facility] [address] [id number] [address] [place] [address], [place] [address] May, [facility] [address] [id number] [address] [place] [address], [place] [id number] May, [facility] [address] [id number] [address] [place] [address], [place] [id number] May, [facility] [address] [id number] [address] [place] [address], [place] [id number] May, [facility] [address] [id number] [address] [place] [address], [place] [address] May, [facility] [address] [id number] [address] [place] [address], [place] [address] May, [facility] [address] [id number] [address] [place] [address], [place] [address] May, [facility] [address] [id number] [address] [place] [address], [place] [address] May, [facility] [address] [id number] [address] [place] [address], [place] [id number] Apr, [facility] [address] [id number] [address] [place] [id number] Apr, [facility] [address] [id number] [address] [place] [address], [place] [id number] Apr, [facility] [address] [id number] [address] [place] [address], [place] [id number] Apr, [facility] [address] [id number] [address] [place] [id number] Apr, [facility] [address] [id number] [address] [place] [address], [place] [id number] Apr, [facility] [address] [id number] [address] [place] [address], [place] [address] Apr, [facility] [address] [id number] [address] [place] [address], [place] [id number] Apr, [facility] [address] [id number] [address] [place] [address], [place] [id number] Apr, [facility] [address] [id number] [address] [place] [address], [place] [id number] Apr, [facility] [address] [id number] [address] [place] [address], [place] [id number] Apr, [facility] [address] [id number] [address] [place] [address], [place] [id number] Apr, [facility] [address] [id number] [address] [place] [address], [place] [id number] Mar, [facility] [address] [id number] [address] [place] [address], [place] [id number] 18 Mar, 2012 [facility] [address] [id number] [address] [place] [id number] Mar, [facility] [address] [id number] [address] [place] [id number] Mar, [facility] [address] [id number] [address] [place] [id number] Mar, [facility] [address] [id number] [address] [place] [id number] Mar, [facility] [address] [id number] [address] [place] [address], [place] [id number] Mar, [facility] [address] [id number] [address] [place] [address], [place] [id number] Jan, [facility] [address] [id number] [address] [place] [id number] Jan, [facility] [address] [id number] [facility] [id number] Jan, [facility] [address] [id number] [facility] [id number] Jan, [facility] [address] [id number] [address] [place] [address], [place] [address] Jan, [facility] [address] [id number] [address] [place] [address], [place] [address] Jan, [facility] [address] [id number] [address] [place] [address], [place] [address] Jan, [facility] [address] [id number] [address] [place] [address], [place] [id number] Jan, [facility] [address] [id number] [address] [place] [address], [place] [address] Jan, [facility] [address] [id number] [address] [place] [address], [place] [address] Jan, [facility] [address] [id number] [address] [place] [address], [place] [address] Jan, [facility] [address] [id number] [address] [place] [address], [place] [address] Dec, [facility] [address] [id number] [address] [place] [address], [place] [id number] Dec, [facility] [address] [id number] [address] [place] [address], [place] [id number] Dec, [facility] [address] [id number] [address] [place] [address], [place] [address] Dec, [facility] [address] [id number] [address] [place] [address], [place] [address] Dec, [facility] [address] [id number] [address] [place] [address], [place] [address] Dec, [facility] [address] [id number] [address] [place] [address] [place] [address] 18 Jan, 2012 [facility] [address] [id number] [address] [place] [address], [place] [id number] 17 Jan, 2012 [facility] [address] [id number] [address] [place] [address], [place] [address] 16 Jan, 2012 [facility] [address] [id number] [address] [place] [address], [place] [address] 13 Jan, 2012 [facility] [address] [id number] [address] [place] [address], [place] [id number] 13 Jan, 2012 [facility] [address] [id number] [address] [place] [address], [place] [id number] 02 Jan, 2012 [facility] [address] [id number] [address] [place] [address], [place] [address] Dec, [facility] [address] [id number] [address] [place] [address], [place] [address] Dec, [facility] [address] [id number] [address] [place] [address], [place] [address] Dec, [facility] [address] [id number] [address] [place] [address], [place] [address] Dec, [facility] [address] [id number] [address] [place] [address], [place] [id number] 15 Dec, 2011 [facility] [address] [id number] [address] [place] [address], [place] [address] Dec, [facility] [address] [id number] [address] [place] [address], [place] [address] Dec, [facility] [address] [id number] [address] [place] [address], [place] [address] October, [facility] [address] [id number] [address] [place] [address], [place] [address] October, [facility] [address] [id number] [address] [place] [address], [place] [address] October, [facility] [address] [id number] [address] [place] [address], [place] [address] October, [facility] [address] [id number] [address] [place] [address], [place] [address] October, [facility] [address] [id number] [address] [place] [address], [place] [address] October, [facility] [address] [id number] [address] [place] [address], [place] [address] Oct, [facility] [address] [id number] [address] [place] [address], [place] [id number] 24 Oct, 2011 [facility] [address] [id number] [address] [place] [address], [place] [address] Oct, [facility] [address] [id number] [address] [place] [address], [place] [address] Oct, [facility] [address] [id number] [address] [place] [address], [place] [address] Oct, [facility] [address] [id number] [address] [place] [address], [place] [address] Oct, [facility] [address] [id number] [address] [place] [address], [place] [address] Oct, [facility] [address] [id number] [address] [place] [address], [place] [address] Aug, [facility] [address] [id number] [address] [place] [address], [place] [address] 29 Sep, 2011 [facility] [address] [id number] [address] [place] [address], [place] [id number] 19 Sep, 2011 [facility] [address] [id number] [address] [place] [address], [place] [address] 13 Sep, 2011 [facility] [address] [id number] [address] [place] [address], [place] [id number] 05 Sep, 2011 [facility] [address] [id number] [address] [place] [address], [place] [address] Aug, [facility] [address] [id number] [address] [place] [address], [place] [address] Aug, [facility] [address] [id number] [address] [place] [address], [place] [address] Aug, [facility] [address] [id number] [address] [place] [address], [place] [address] Aug, [facility] [address] [id number] [address] [place] [address], [place] [address] Jul, [facility] [address] [id number] [address] [place] [address], [place] [address] Jul, [facility] [address] [id number] [address] [place] [address], [place] [address] Jul, [facility] [address] [id number] [address] [place] [address], [place] [address] Jul, [facility] [address] [id number] [address] [place] [address], [place] [address] Jun, [facility] [address] [id number] [address] [place] [address], [place] [address] Jun, [facility] [address] [id number] [address] [place] [address], [place] [address] May, [facility] [address] [id number] [address] [place] [address], [place] [address] May, [facility] [address] [id number] [address] [place] [address], [place] [id number] May, [facility] [address] [id number] [address] [place] [address], [place] [address] May, [facility] [address] [id number] [address] [place] [address], [place] [address] 07 May, 2011 [facility] [address] [id number] [address] [place] [address], [place] [address] Apr, [facility] [address] [id number] [address] [place] [id number] Apr, [facility] [address] [id number] [address] [place] [address] Apr, [facility] [address] [id number] [address] [place] [id number] Jan, [facility] [address] [id number] [address] [place] [id number] Dec, [facility] [address] [id number] [address] [place] [id number] October, [facility] [address] [id number] [address] [place] [address] Jun, [facility] [address] [id number] [address] [place] [id number] Apr, [facility] [address] [id number] [address] [place] [id number] Apr, [facility] [address] [id number] [address] [place] [id number] Apr, [facility] [address] [id number] [address] [place] [id number] Jun, IMMUNIZATIONS No Known Immunizations SOCIAL HISTORY Never Assessed REASON FOR VISIT [facility] [place] PLAN OF CARE VITAL SIGNS MEDICATIONS Unknown Medications RESULTS No Results PROCEDURES No Known procedures INSTRUCTIONS MEDICATIONS ADMINISTERED No Known Medications MEDICAL (GENERAL) HISTORY Type Description Date Medical History Psychiatric disorder Medical History Hard of hearing Surgical History Neofibrous tumor Surgical History back injection Hospitalization History Intestinal blockage Hospitalization History past psychiatric hospitalizations x2
--- OUTSIDE RECORDS SUMMARY | 2020-01-25 13:05 | XMS REPORT ---
Author Author Ana Mayer Doctor Organization [facility] Address Unknown Phone Unavailable Care Team Providers Care Physician Assistant Name Role Phone Migration, Doctor Unavailable Unavailable PROBLEMS Type Condition ICD9-CM Code [id number] Code Onset Dates Condition S tatus SNOMED Code Problem Attention deficit R41.840 Active 76 007206 Problem Chronic hepatitis C without hepatic coma B18.2 Active 834566179 Problem Cannabis abuse F12.10 Active 46340 009 Problem Bipolar disorder, in partial remission, most rec ent episode hypomanic F31.71 Active 191608263 Problem Attention deficit hyperactivity disorder (ADHD), combi luciano type F90.2 Active 03520473 Problem Bipolar 1 disorder F31.9 Active 3 85859226 Problem H/O laminectomy Z98.89 Active 1616 09688 Problem Other chronic pain G89.29 Active 8 0344060 Problem Anxiety disorder, unspecified type F41.9 Active [id number] ALLERGIES No Information ENCOUNTERS Encounter Location Date Diagnosis [facility] [address] [facility] [id number] [address] [place] [address] Oct, [facility] [address] [facility] [id number] [address] [place] [address] Aug, Bipolar disorder, in partial remission, most recent episode hypomanic F31.71 ; Attention deficit hyperactivity disorder (ADHD), combined type F90.2 and Anxiety disorder, unspecified type F41.9 [facility] [address] [facility] [id number] [address] [place] [address] Aug, [facility] [address] [facility] [id number] [address] [place] [address] Aug, Bipolar disorder, in partial remission, most recent episode hypomanic F31.71 [facility] [address] [facility] [id number] [address] [place] [address] Aug, [facility] [address] [id number] [address] [place] [address] Aug, Bipolar disorder, in partial remission, most recent episode hypomanic F31.71 [facility] [address] [id number] [address] [place] [address] Aug, Bipolar disorder, in partial remission, most recent episode hypomanic F31.71 ; Attention deficit hyperactivity disorder (ADHD), combined type F90.2 and Anxiety disorder, unspecified type F41.9 [facility] [address] [id number] [address] [place] [address] Aug, Low back pain M54.5 and Pain in left wrist M25.532 [facility] [address] [id number] [address] [place] [address] Aug, [facility] [address] [id number] [address] [place] [address] Jun, [facility] [address] [facility] [id number] [address] [place] [address] Apr, Bipolar disorder, in partial remission, most recent episode hypomanic F31.71 [facility] [address] [id number] [address] [place] [address] Apr, [facility] [address] [id number] [address] [place] [address] Apr, Bipolar disorder, in partial remission, most recent episode hypomanic F31.71 ; Attention deficit hyperactivity disorder (ADHD), combined type F90.2 ; Anxiety disorder, unspecified type F41.9 and Other detention (current) 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 Z79.899 [facility] [address] [id number] [address] [place] [address] Apr, Bipolar disorder, in partial remission, most recent episode hypomanic F31.71 [facility] [address] [id number] [address] [place] [address] Apr, Bipolar disorder, in partial remission, most recent episode hypomanic F31.71 [facility] [address] [facility] [id number] [address] [place] [address] Mar, [facility] [address] [id number] [address] [place] [address] Mar, Bipolar disorder, in partial remission, most recent episode hypomanic F31.71 ; Encounter for immunization Z23 and Low back pain M54.5 [facility] [address] [id number] [address] [place] [address] Mar, Bipolar disorder, in partial remission, most recent episode hypomanic F31.71 [facility] [address] [id number] [address] [place] [address] Mar, Bipolar disorder, in partial remission, most recent episode hypomanic F31.71 [facility] [address] [facility] [id number] [address] [place] [address] Jan, Bipolar disorder, in partial remission, most recent episode hypomanic F31.71 [facility] [address] [facility] [id number] [address] [place] [address] Jan, Bipolar disorder, in partial remission, most recent episode hypomanic F31.71 [facility] [address] [facility] [id number] [address] [place] [address] Dec, Bipolar disorder, in partial remission, most recent episode hypomanic F31.71 [facility] [address] [facility] [id number] [address] [place] [address] Dec, Bipolar disorder, in partial remission, most recent episode hypomanic F31.71 ; Attention deficit hyperactivity disorder (ADHD), combined type F90.2 ; Anxiety disorder, unspecified type F41.9 and Other detention (current) 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 Z79.899 [facility] [address] [facility] [id number] [address] [place] [address] Dec, Bipolar disorder, in partial remission, most recent episode hypomanic F31.71 [facility] [address] [facility] [id number] [address] [place] [address] Dec, Bipolar disorder, in partial remission, most recent episode hypomanic F31.71 [facility] [address] [id number] [address] [place] [address] October, Bipolar disorder, in partial remission, most recent episode hypomanic F31.71 [facility] [address] [id number] [address] [place] [address] October, [facility] [address] [id number] [address] [place] [address] October, [facility] [address] [id number] [address] [place] [address] Oct, Bipolar disorder, in partial remission, most recent episode hypomanic F31.71 ; Attention deficit hyperactivity disorder (ADHD), combined type F90.2 ; Anxiety disorder, unspecified type F41.9 and Encounter for drug screening Z02.83 [facility] [address] [id number] [address] [place] [address] Oct, Bipolar disorder, in partial remission, most recent episode hypomanic F31.71 [facility] [address] [id number] [address] [place] [address] Oct, Bipolar disorder, in partial remission, most recent episode hypomanic F31.71 [facility] [address] [id number] [address] [place] [address] Aug, Bipolar disorder, in partial remission, most recent episode hypomanic F31.71 [facility] [address] [id number] [address] [place] [address] Aug, Bipolar disorder, in partial remission, most recent episode hypomanic F31.71 [facility] [address] [id number] [address] [place] [address] Aug, Bipolar disorder, in partial remission, most recent episode hypomanic F31.71 [facility] [address] [id number] [address] [place] [address] Jul, Bipolar disorder, in partial remission, most recent episode hypomanic F31.71 ; Attention deficit hyperactivity disorder (ADHD), combined type F90.2 and Anxiety disorder, unspecified type F41.9 [facility] [address] [id number] [address] [place] [address] Jul, Bipolar disorder, in partial remission, most recent episode hypomanic F31.71 [facility] [address] [id number] [address] [place] [address] Jun, Bipolar disorder, in partial remission, most recent episode hypomanic F31.71 [facility] [address] [id number] [address] [place] [address] May, Bipolar disorder, in partial remission, most recent episode hypomanic F31.71 [facility] [address] [facility] [id number] [address] [place] [address] May, Bipolar disorder, in partial remission, most recent episode hypomanic F31.71 [facility] [address] [facility] [id number] [address] [place] [address] Apr, [facility] [address] [id number] [address] [place] [address] Apr, Bipolar disorder, in partial remission, most recent episode hypomanic F31.71 ; Attention deficit hyperactivity disorder (ADHD), combined type F90.2 ; Anxiety disorder, unspecified type F41.9 and Cannabis abuse F12.10 [facility] [address] [id number] [address] [place] [address] Apr, Attention deficit hyperactiv ity disorder (ADHD), combined type F90.2 [facility] [address] [id number] [address] [place] [address] Mar, Attention deficit hyperactiv ity disorder (ADHD), combined type F90.2 [facility] [address] [facility] [id number] [address] [place] [address] Mar, Anxiety disorder, unspecifie d type F41.9 [facility] [address] [facility] [id number] [address] [place] [address] Jan, Attention deficit hyperactiv ity disorder (ADHD), combined type F90.2 [facility] [address] [facility] [id number] [address] [place] [address] Jan, Anxiety disorder, unspecifie d type F41.9 [facility] [address] [facility] [id number] [address] [place] [address] Jan, Other chronic pain G89.29 ; Chronic hepatitis C without hepatic coma B18.2 and Bipolar 1 disorder F31.9 [facility] [address] [facility] [id number] [address] [place] [address] Dec, Attention deficit hyperactiv ity disorder (ADHD), combined type F90.2 [facility] [address] [facility] [id number] [address] [place] [address] Dec, Bipolar disorder, in partial remission, most recent episode hypomanic F31.71 ; Attention deficit hyperactivity disorder (ADHD), combined type F90.2 and Anxiety disorder, unspecified type F41.9 [facility] [address] [facility] [id number] [address] [place] [address] Dec, Bipolar disorder, in partial remission, most recent episode hypomanic F31.71 ; Attention deficit hyperactivity disorder (ADHD), combined type F90.2 and Anxiety disorder, unspecified type F41.9 [facility] [address] [facility] [id number] [address] [place] [address] Dec, Bipolar 1 disorder F31.9 and Attention deficit R41.840 [facility] [address] [facility] [id number] [address] [place] [address] Oct, Other chronic pain G89.29 ; Alopecia L65.9 and Screening, lipid Z13.220 [facility] [address] [facility] [id number] [address] [place] [address] Oct, [facility] [address] [facility] [id number] [address] [place] [address] Aug, [facility] [address] [facility] [id number] [address] [place] [address] Aug, Eustachian tube dysfunction, right H69.81 ; Vertigo R42 and Other chronic pain G89.29 [facility] [address] [id number] [address] [place] [address] Aug, [facility] [address] [id number] [address] [place] [address] Jun, [facility] [address] [id number] [address] [place] [address] Jun, Low back pain M54.5 and Othe r chronic pain G89.29 [facility] [address] [id number] [address] [place] [address] Jun, [facility] [address] [id number] [address] [place] [address] May, [facility] [address] [id number] [address] [place] [address] Jan, [facility] [address] [id number] [address] [place] [address] Dec, [facility] [address] [id number] [address] [place] [address] Dec, [facility] [address] [id number] [address] [place] [address] Jun, [facility] [address] [id number] [address] [place] [address] Apr, Eustachian tube dysfunction, unspecified laterality H69.80 ; Hot flashes N95.1 and Encounter for immunization Z23 [facility] [address] [id number] [address] [place] [address] Jan, [facility] [address] [id number] [address] [place] [address] Jan, [facility] [address] [id number] [address] [place] [address] Jan, [facility] [address] [id number] [address] [place] [address] Jan, [facility] [address] [id number] [address] [place] [address] Jan, Encounter to establish care V65.8 ; Bipolar 1 disorder 296.7 ; Abdominal pain 789.00 ; Constipation 564.00 ; Hard of hearing 389.9 and Drug abuse 305.90 [facility] [address] [id number] [address] [place] [address] Dec, [facility] [address] [id number] [address] [place] [address] October, [facility] [address] [id number] [address] [place] [address] October, [facility] [address] [id number] [address] [place] [address] Oct, [facility] [address] [id number] [address] [place] [address] Oct, [facility] [address] [id number] [address] [place] [address] Oct, [facility] [address] [id number] [address] [place] [address] Aug, [facility] [address] [id number] [address] [place] [address] Aug, [facility] [address] [id number] [address] [place] [address] Aug, [facility] [address] [id number] [address] [place] [address] Aug, [facility] [address] [id number] [address] [place] [address] Aug, [facility] [address] [id number] [address] [place] [address] Aug, [facility] [address] [id number] [address] [place] [address], [place] [address] Aug, 2014 [facility] [address] [id number] [address] [place] [address], [place] [address] Aug, 2014 [facility] [address] [id number] [address] [place] [address], [place] [address] Aug, 2014 [facility] [address] [id number] [address] [place] [address], [place] [address] Aug, 2014 [facility] [address] [id number] [address] [place] [address], [place] [address] Aug, 2014 [facility] [address] [id number] [address] [place] [address], [place] [address] Aug, 2014 [facility] [address] [id number] [address] [place] [address], [place] [address] Aug, 2014 [facility] [address] [id number] [address] [place] [address], [place] [address] Aug, 2014 [facility] [address] [id number] [address] [place] [address], [place] [address] Aug, [facility] [address] [id number] [address] [place] [address], [place] [address] Jul, [facility] [address] [id number] [address] [place] [address], [place] [address] Jul, [facility] [address] [id number] [address] [place] [address], [place] [address] Jul, [facility] [address] [id number] [address] [place] [address], [place] [address] Jul, [facility] [address] [id number] [address] [place] [address], [place] [address] Jul, [facility] [address] [id number] [address] [place] [address], [place] [address] Jul, [facility] [address] [id number] [address] [place] [address], [place] [address] Jul, [facility] [address] [id number] [address] [place] [address], [place] [address] Jul, [facility] [address] [id number] [address] [place] [address], [place] [address] Jun, [facility] [address] [id number] [address] [place] [address], [place] [address] Jun, [facility] [address] [id number] [address] [place] [address], [place] [address] Jun, [facility] [address] [id number] [address] [place] [address], [place] [address] Jun, [facility] [address] [id number] [address] [place] [address], [place] [address] Jun, [facility] [address] [id number] [address] [place] [address], [place] [address] Jun, [facility] [address] [id number] [address] [place] [address], [place] [address] Jun, [facility] [address] [id number] [address] [place] [address], [place] [address] Jun, [facility] [address] [id number] [address] [place] [address], [place] [address] Jun, [facility] [address] [id number] [address] [place] [address], [place] [address] Jun, [facility] [address] [id number] [address] [place] [address], [place] [address] Jun, [facility] [address] [id number] [address] [place] [address], [place] [address] May, [facility] [address] [id number] [address] [place] [address], [place] [address] May, [facility] [address] [id number] [address] [place] [address], [place] [address] May, [facility] [address] [id number] [address] [place] [address], [place] [address] May, [facility] [address] [id number] [address] [place] [address], [place] [address] May, [facility] [address] [id number] [address] [place] [address], [place] [address] May, [facility] [address] [id number] [address] [place] [address], [place] [address] May, [facility] [address] [id number] [address] [place] [address], [place] [address] Apr, [facility] [address] [id number] [address] [place] [address], [place] [address] Apr, [facility] [address] [id number] [address] [place] [address], [place] [address] Apr, [facility] [address] [id number] [address] [place] [address], [place] [address] Apr, [facility] [address] [id number] [address] [place] [address], [place] [address] Apr, [facility] [address] [id number] [address] [place] [address], [place] [address] Apr, [facility] [address] [id number] [address] [place] [address], [place] [address] Mar, [facility] [address] [id number] [address] [place] [address], [place] [address] 29 Mar, 2013 [facility] [address] [id number] [address] [place] [address], [place] [address] 10 Mar, 2013 [facility] [address] [id number] [address] [place] [address], [place] [address] 10 Mar, 2013 [facility] [address] [id number] [address] [place] [address], [place] [address] Mar, 2013 [facility] [address] [id number] [address] [place] [address], [place] [address] Mar, [facility] [address] [id number] [address] [place] [address], [place] [address] Jan, [facility] [address] [id number] [address] [place] [address], [place] [address] Jan, [facility] [address] [id number] [address] [place] [address], [place] [address] Jan, [facility] [address] [id number] [address] [place] [address], [place] [address] Jan, [facility] [address] [id number] [address] [place] [address], [place] [address] Dec, [facility] [address] [id number] [address] [place] [address], [place] [address] Dec, [facility] [address] [id number] [address] [place] [address], [place] [address] Dec, [facility] [address] [id number] [address] [place] [address], [place] [address] Dec, [facility] [address] [id number] [address] [place] [address], [place] [address] Dec, [facility] [address] [id number] [address] [place] [address], [place] [address] Dec, [facility] [address] [id number] [address] [place] [address], [place] [address] Dec, [facility] [address] [id number] [address] [place] [address], [place] [address] Dec, [facility] [address] [id number] [address] [place] [address], [place] [address] Dec, [facility] [address] [id number] [address] [place] [address], [place] [address] Dec, [facility] [address] [id number] [address] [place] [address], [place] [address] Dec, [facility] [address] [id number] [address] [place] [address], [place] [address] Dec, [facility] [address] [id number] [address] [place] [address], [place] [address] October, [facility] [address] [id number] [address] [place] [address], [place] [address] October, [facility] [address] [id number] [address] [place] [address], [place] [address] October, [facility] [address] [id number] [address] [place] [address], [place] [address] October, [facility] [address] [id number] [address] [place] [address], [place] [address] October, [facility] [address] [id number] [address] [place] [address], [place] [address] October, [facility] [address] [id number] [address] [place] [address], [place] [address] Oct, [facility] [address] [id number] [address] [place] [address], [place] [address] Oct, [facility] [address] [id number] [address] [place] [address], [place] [address] Oct, [facility] [address] [id number] [address] [place] [address], [place] [address] Oct, [facility] [address] [id number] [address] [place] [address], [place] [address] Oct, [facility] [address] [id number] [address] [place] [address], [place] [address] Oct, [facility] [address] [id number] [address] [place] [address], [place] [address] Oct, [facility] [address] [id number] [address] [place] [address], [place] [address] Oct, [facility] [address] [id number] [address] [place] [address], [place] [address] Oct, [facility] [address] [id number] [facility] [place] [address] 09 Oct, 2013 [facility] [address] [id number] [facility] [place] [address] Oct, [facility] [address] [id number] [address] [place] [address], [place] [address] Oct, [facility] [address] [id number] [address] [place] [address], [place] [address] Aug, [facility] [address] [id number] [address] [place] [address], [place] [address] Aug, [facility] [address] [id number] [address] [place] [address], [place] [address] Aug, [facility] [address] [id number] [address] [place] [address], [place] [address] Aug, [facility] [address] [id number] [address] [place] [address], [place] [address] Aug, [facility] [address] [id number] [address] [place] [address], [place] [address] 05 Aug, 2013 [facility] [address] [id number] [address] [place] [address], [place] [address] Aug, [facility] [address] [id number] [address] [place] [address], [place] [address] Aug, [facility] [address] [id number] [address] [place] [address], [place] [address] Aug, [facility] [address] [id number] [address] [place] [address], [place] [address] Aug, [facility] [address] [id number] [address] [place] [address], [place] [address] Aug, [facility] [address] [id number] [address] [place] [address], [place] [address] Aug, [facility] [address] [id number] [address] [place] [address], [place] [address] Aug, [facility] [address] [id number] [address] [place] [address], [place] [address] 20 Aug, 2013 [facility] [address] [id number] [address] [place] [address], [place] [address] 14 Aug, 2013 [facility] [address] [id number] [address] [place] [address], [place] [address] 14 Aug, 2013 [facility] [address] [id number] [address] [place] [address], [place] [address] 14 Aug, 2013 [facility] [address] [id number] [address] [place] [address], [place] [address] 14 Aug, 2013 [facility] [address] [id number] [address] [place] [address], [place] [address] 07 Aug, 2013 [facility] [address] [id number] [address] [place] [address], [place] [address] 07 Aug, 2013 [facility] [address] [id number] [address] [place] [address], [place] [address] 06 Aug, 2013 [facility] [address] [id number] [address] [place] [address], [place] [address] 06 Aug, 2013 [facility] [address] [id number] [address] [place] [address], [place] [address] 04 Aug, 2013 [facility] [address] [id number] [address] [place] [address], [place] [address] 04 Aug, 2013 [facility] [address] [id number] [address] [place] [address], [place] [address] Aug, [facility] [address] [id number] [address] [place] [address], [place] [address] Jul, [facility] [address] [id number] [address] [place] [address], [place] [address] Jul, [facility] [address] [id number] [address] [place] [address], [place] [address] Jul, [facility] [address] [id number] [address] [place] [address], [place] [address] Jul, [facility] [address] [id number] [address] [place] [address], [place] [address] Jul, [facility] [address] [id number] [address] [place] [address], [place] [address] Jul, [facility] [address] [id number] [address] [place] [address], [place] [address] Jul, [facility] [address] [id number] [address] [place] [address], [place] [address] Jul, [facility] [address] [id number] [address] [place] [address], [place] [address] Jul, [facility] [address] [id number] [address] [place] [address], [place] [address] Jul, [facility] [address] [id number] [address] [place] [address], [place] [address] Jul, [facility] [address] [id number] [address] [place] [address], [place] [address] Jul, [facility] [address] [id number] [address] [place] [address], [place] [address] Jul, [facility] [address] [id number] [address] [place] [address], [place] [address] Jul, [facility] [address] [id number] [address] [place] [address], [place] [address] Jul, [facility] [address] [id number] [address] [place] [address], [place] [address] Jul, [facility] [address] [id number] [address] [place] [address], [place] [address] Jul, [facility] [address] [id number] [address] [place] [address], [place] [address] Jul, [facility] [address] [id number] [address] [place] [address], [place] [address] Jul, [facility] [address] [id number] [address] [place] [address], [place] [address] Jul, [facility] [address] [id number] [address] [place] [address], [place] [address] Jun, [facility] [address] [id number] [address] [place] [address], [place] [address] Jun, [facility] [address] [id number] [address] [place] [address], [place] [address] Jun, [facility] [address] [id number] [address] [place] [address], [place] [address] Jun, [facility] [address] [id number] [address] [place] [address], [place] [address] Jun, [facility] [address] [id number] [address] [place] [address], [place] [address] Jun, [facility] [address] [id number] [address] [place] [address], [place] [address] Jun, [facility] [address] [id number] [address] [place] [address], [place] [address] Jun, [facility] [address] [id number] [address] [place] [address], [place] [address] Jun, [facility] [address] [id number] [address] [place] [address], [place] [address] Jun, [facility] [address] [id number] [address] [place] [address], [place] [address] Jun, [facility] [address] [id number] [address] [place] [address], [place] [address] Jun, [facility] [address] [id number] [address] [place] [address], [place] [address] Jun, [facility] [address] [id number] [address] [place] [address], [place] [address] Jun, [facility] [address] [id number] [address] [place] [address], [place] [address] 20 Jun, 2013 [facility] [address] [id number] [address] [place] [address], [place] [address] 18 Jun, 2013 [facility] [address] [id number] [address] [place] [address], [place] [address] 18 Jun, 2013 [facility] [address] [id number] [address] [place] [address], [place] [address] 17 Jun, 2013 [facility] [address] [id number] [address] [place] [address], [place] [address] 17 Jun, 2013 [facility] [address] [id number] [address] [place] [address], [place] [address] 13 Jun, 2013 [facility] [address] [id number] [address] [place] [address], [place] [address] 12 Jun, 2013 [facility] [address] [id number] [address] [place] [address], [place] [address] 12 Jun, 2013 [facility] [address] [id number] [address] [place] [address], [place] [address] 09 Jun, 2013 [facility] [address] [id number] [address] [place] [address], [place] [address] 05 Jun, 2013 [facility] [address] [id number] [address] [place] [address], [place] [address] 05 Jun, 2013 [facility] [address] [id number] [address] [place] [address], [place] [address] 04 Jun, 2013 [facility] [address] [id number] [address] [place] [address], [place] [address] 04 Jun, 2013 [facility] [address] [id number] [address] [place] [address], [place] [address] 17 May, 2013 [facility] [address] [id number] [address] [place] [address], [place] [address] 17 May, 2013 [facility] [address] [id number] [address] [place] [address], [place] [address] May, [facility] [address] [id number] [address] [place] [address], [place] [address] May, [facility] [address] [id number] [address] [place] [address], [place] [address] May, [facility] [address] [id number] [address] [place] [address], [place] [address] May, [facility] [address] [id number] [address] [place] [address], [place] [address] Apr, [facility] [address] [id number] [address] [place] [address], [place] [address] Apr, [facility] [address] [id number] [address] [place] [address], [place] [address] Apr, [facility] [address] [id number] [address] [place] [address], [place] [address] Apr, [facility] [address] [id number] [address] [place] [address], [place] [address] Apr, [facility] [address] [id number] [address] [place] [address], [place] [address] Apr, [facility] [address] [id number] [address] [place] [address], [place] [address] Apr, [facility] [address] [id number] [address] [place] [address], [place] [address] Apr, [facility] [address] [id number] [address] [place] [address], [place] [address] 26 Mar, 2013 [facility] [address] [id number] [address] [place] [address], [place] [address] 24 Sep2012 [facility] [address] [id number] [address] [place] [address], [place] [address] 17 Mar, 2013 [facility] [address] [id number] [address] [place] [address], [place] [address] 17 Mar, 2013 [facility] [address] [id number] [address] [place] [address] [place] [address] 11 Mar, 2013 [facility] [address] [id number] [address] [place] [address], [place] [address] 10 Mar, 2013 [facility] [address] [id number] [address] [place] [address], [place] [address] 05 Mar, 2013 [facility] [address] [id number] [address] [place] [address], [place] [address] 04 Mar, 2013 [facility] [address] [id number] [address] [place] [address], [place] [address] 20 Jan, 2013 [facility] [address] [id number] [address] [place] [address], [place] [address] Jan, [facility] [address] [id number] [address] [place] [address], [place] [address] 14 Jan, 2013 [facility] [address] [id number] [address] [place] [address], [place] [address] Jan, [facility] [address] [id number] [address] [place] [address], [place] [address] Jan, [facility] [address] [id number] [address] [place] [address], [place] [address] Jan, [facility] [address] [id number] [address] [place] [address], [place] [address] Dec, [facility] [address] [id number] [address] [place] [address], [place] [address] Dec, [facility] [address] [id number] [address] [place] [address], [place] [address] Dec, [facility] [address] [id number] [address] [place] [address], [place] [address] Dec, [facility] [address] [id number] [address] [place] [address], [place] [address] Dec, [facility] [address] [id number] [address] [place] [address], [place] [address] 17 Dec, 2012 [facility] [address] [id number] [address] [place] [address], [place] [address] 16 Dec, 2012 [facility] [address] [id number] [address] [place] [address], [place] [address] 16 Dec, 2012 [facility] [address] [id number] [address] [place] [address], [place] [address] 15 Dec, 2012 [facility] [address] [id number] [address] [place] [address], [place] [address] 10 Dec, 2012 [facility] [address] [id number] [address] [place] [address], [place] [address] 28 Dec, 2012 [facility] [address] [id number] [address] [place] [address], [place] [address] Dec, [facility] [address] [id number] [address] [place] [address], [place] [address] Dec, [facility] [address] [id number] [address] [place] [address], [place] [address] Dec, [facility] [address] [id number] [address] [place] [address], [place] [address] Dec, [facility] [address] [id number] [address] [place] [address], [place] [address] Dec, [facility] [address] [id number] [address] [place] [address], [place] [address] October, [facility] [address] [id number] [address] [place] [address], [place] [address] October, [facility] [address] [id number] [address] [place] [address], [place] [address] October, [facility] [address] [id number] [address] [place] [address], [place] [address] October, [facility] [address] [id number] [address] [place] [address], [place] [address] October, [facility] [address] [id number] [address] [place] [address], [place] [address] October, [facility] [address] [id number] [address] [place] [address], [place] [address] October, [facility] [address] [id number] [address] [place] [address], [place] [address] Oct, [facility] [address] [id number] [address] [place] [address], [place] [address] Oct, [facility] [address] [id number] [address] [place] [address], [place] [address] Oct, [facility] [address] [id number] [address] [place] [address], [place] [address] Oct, [facility] [address] [id number] [address] [place] [address], [place] [address] Oct, [facility] [address] [id number] [address] [place] [address], [place] [address] Oct, [facility] [address] [id number] [address] [place] [address], [place] [address] Oct, [facility] [address] [id number] [address] [place] [address], [place] [address] 15 Oct, 2012 [facility] [address] [id number] [address] [place] [address], [place] [address] Oct, [facility] [address] [id number] [address] [place] [address], [place] [address] Oct, [facility] [address] [id number] [address] [place] [address], [place] [address] Oct, [facility] [address] [id number] [address] [place] [address], [place] [address] Oct, [facility] [address] [id number] [address] [place] [address], [place] [address] Aug, [facility] [address] [id number] [address] [place] [address], [place] [address] Aug, [facility] [address] [id number] [address] [place] [address], [place] [address] 12 Aug, 2012 [facility] [address] [id number] [address] [place] [address], [place] [address] 06 Aug, 2012 [facility] [address] [id number] [address] [place] [address], [place] [address] 05 Aug, 2012 [facility] [address] [id number] [address] [place] [address], [place] [address] 05 Aug, 2012 [facility] [address] [id number] [address] [place] [address], [place] [address] 20 Aug, 2012 [facility] [address] [id number] [address] [place] [address], [place] [address] 14 Aug, 2012 [facility] [address] [id number] [address] [place] [address], [place] [address] 12 Aug, 2012 [facility] [address] [id number] [address] [place] [address], [place] [address] Aug, [facility] [address] [id number] [address] [place] [address], [place] [address] Jul, [facility] [address] [id number] [address] [place] [address], [place] [address] Jul, [facility] [address] [id number] [address] [place] [address], [place] [address] Jul, [facility] [address] [id number] [address] [place] [address], [place] [address] Jun, [facility] [address] [id number] [address] [place] [address], [place] [address] Jun, [facility] [address] [id number] [address] [place] [address], [place] [address] Jun, [facility] [address] [id number] [address] [place] [address], [place] [address] Jun, [facility] [address] [id number] [address] [place] [address], [place] [address] Jun, [facility] [address] [id number] [address] [place] [address], [place] [address] 14 Jun, 2012 [facility] [address] [id number] [address] [place] [address], [place] [address] 14 Jun, 2012 [facility] [address] [id number] [address] [place] [address], [place] [address] 13 Jun, 2012 [facility] [address] [id number] [address] [place] [address], [place] [address] 13 Jun, 2012 [facility] [address] [id number] [address] [place] [address], [place] [address] 11 Jun, 2012 [facility] [address] [id number] [address] [place] [address], [place] [address] 11 Jun, 2012 [facility] [address] [id number] [address] [place] [address], [place] [address] 11 Jun, 2012 [facility] [address] [id number] [address] [place] [address], [place] [address] 11 Jun, 2012 [facility] [address] [id number] [address] [place] [address], [place] [address] 07 Jun, 2012 [facility] [address] [id number] [address] [place] [address], [place] [address] 07 Jun, 2012 [facility] [address] [id number] [address] [place] [address], [place] [address] 06 Jun, 2012 [facility] [address] [id number] [address] [place] [address], [place] [address] 06 Jun, 2012 [facility] [address] [id number] [address] [place] [address], [place] [address] Jun, [facility] [address] [id number] [address] [place] [address], [place] [address] 06 Jun, 2012 [facility] [address] [id number] [address] [place] [address], [place] [address] 05 Jun, 2012 [facility] [address] [id number] [address] [place] [address], [place] [address] Jun, [facility] [address] [id number] [address] [place] [address], [place] [address] Jun, [facility] [address] [id number] [address] [place] [address], [place] [address] Jun, [facility] [address] [id number] [address] [place] [address], [place] [address] May, [facility] [address] [id number] [address] [place] [address], [place] [address] May, [facility] [address] [id number] [address] [place] [address], [place] [address] May, [facility] [address] [id number] [address] [place] [address], [place] [address] May, [facility] [address] [id number] [address] [place] [address], [place] [address] May, [facility] [address] [id number] [address] [place] [address], [place] [address] May, [facility] [address] [id number] [address] [place] [address], [place] [address] May, [facility] [address] [id number] [address] [place] [address], [place] [address] May, [facility] [address] [id number] [address] [place] [address], [place] [address] Apr, [facility] [address] [id number] [address] [place] [address] Apr, [facility] [address] [id number] [address] [place] [address], [place] [address] Apr, [facility] [address] [id number] [address] [place] [address], [place] [address] Apr, [facility] [address] [id number] [address] [place] [address] Apr, [facility] [address] [id number] [address] [place] [address], [place] [address] Apr, [facility] [address] [id number] [address] [place] [address], [place] [address] Apr, [facility] [address] [id number] [address] [place] [address], [place] [address] Apr, [facility] [address] [id number] [address] [place] [address], [place] [address] Apr, [facility] [address] [id number] [address] [place] [address], [place] [address] Apr, [facility] [address] [id number] [address] [place] [address], [place] [address] Apr, [facility] [address] [id number] [address] [place] [address], [place] [address] Apr, [facility] [address] [id number] [address] [place] [address], [place] [address] Mar, [facility] [address] [id number] [address] [place] [address], [place] [address] 18 Mar, 2012 [facility] [address] [id number] [address] [place] [address] Mar, [facility] [address] [id number] [address] [place] [address] Mar, [facility] [address] [id number] [address] [place] [id number] Mar, [facility] [address] [id number] [address] [place] [id number] Mar, [facility] [address] [id number] [address] [place] [address], [place] [address] Mar, [facility] [address] [id number] [address] [place] [address], [place] [address] Jan, [facility] [address] [id number] [address] [place] [address] Jan, [facility] [address] [id number] [facility] [id number] Jan, [facility] [address] [id number] [facility] [place] [id number] Jan, [facility] [address] [id number] [address] [place] [address], [place] [address] Jan, [facility] [address] [id number] [address] [place] [address], [place] [address] Jan, [facility] [address] [id number] [address] [place] [address], [place] [address] Jan, [facility] [address] [id number] [address] [place] [address], [place] [address] Jan, [facility] [address] [id number] [address] [place] [address], [place] [address] Jan, [facility] [address] [id number] [address] [place] [address], [place] [address] Jan, [facility] [address] [id number] [address] [place] [address], [place] [address] Jan, [facility] [address] [id number] [address] [place] [address], [place] [address] Dec, [facility] [address] [id number] [address] [place] [address], [place] [address] Dec, [facility] [address] [id number] [address] [place] [address], [place] [address] Dec, [facility] [address] [id number] [address] [place] [address], [place] [address] Dec, [facility] [address] [id number] [address] [place] [address], [place] [address] Dec, [facility] [address] [id number] [address] [place] [address], [place] [address] Dec, [facility] [address] [id number] [address] [place] [address] [place] [address] 18 Jan, 2012 [facility] [address] [id number] [address] [place] [address], [place] [address] 17 Jan, 2012 [facility] [address] [id number] [address] [place] [address], [place] [address] 16 Jan, 2012 [facility] [address] [id number] [address] [place] [address], [place] [address] 13 Jan, 2012 [facility] [address] [id number] [address] [place] [address], [place] [address] 13 Jan, 2012 [facility] [address] [id number] [address] [place] [address], [place] [address] 02 Jan, 2012 [facility] [address] [id number] [address] [place] [address], [place] [address] Dec, [facility] [address] [id number] [address] [place] [address], [place] [address] Dec, [facility] [address] [id number] [address] [place] [address], [place] [address] Dec, [facility] [address] [id number] [address] [place] [address], [place] [address] Dec, [facility] [address] [id number] [address] [place] [address], [place] [address] 15 Dec, 2011 [facility] [address] [id number] [address] [place] [address], [place] [address] Dec, [facility] [address] [id number] [address] [place] [address], [place] [address] Dec, [facility] [address] [id number] [address] [place] [address], [place] [address] October, [facility] [address] [id number] [address] [place] [address], [place] [address] October, [facility] [address] [id number] [address] [place] [address], [place] [address] October, [facility] [address] [id number] [address] [place] [address], [place] [address] October, [facility] [address] [id number] [address] [place] [address], [place] [address] October, [facility] [address] [id number] [address] [place] [address], [place] [address] October, [facility] [address] [id number] [address] [place] [address], [place] [address] Oct, [facility] [address] [id number] [address] [place] [address], [place] [address] 24 Oct, 2011 [facility] [address] [id number] [address] [place] [address], [place] [address] Oct, [facility] [address] [id number] [address] [place] [address], [place] [address] Oct, [facility] [address] [id number] [address] [place] [address], [place] [address] Oct, [facility] [address] [id number] [address] [place] [address], [place] [address] Oct, [facility] [address] [id number] [address] [place] [address], [place] [address] Oct, [facility] [address] [id number] [address] [place] [address], [place] [address] Aug, [facility] [address] [id number] [address] [place] [address], [place] [address] 29 Sep, 2011 [facility] [address] [id number] [address] [place] [address], [place] [address] 19 Sep, 2011 [facility] [address] [id number] [address] [place] [address], [place] [address] 13 Sep, 2011 [facility] [address] [id number] [address] [place] [address], [place] [address] 05 Sep, 2011 [facility] [address] [id number] [address] [place] [address], [place] [address] Aug, [facility] [address] [id number] [address] [place] [address], [place] [address] Aug, [facility] [address] [id number] [address] [place] [address], [place] [address] Aug, [facility] [address] [id number] [address] [place] [address], [place] [address] Aug, [facility] [address] [id number] [address] [place] [address], [place] [address] Jul, [facility] [address] [id number] [address] [place] [address], [place] [address] Jul, [facility] [address] [id number] [address] [place] [address], [place] [address] Jul, [facility] [address] [id number] [address] [place] [address], [place] [address] Jul, [facility] [address] [id number] [address] [place] [address], [place] [address] Jun, [facility] [address] [id number] [address] [place] [address], [place] [address] Jun, [facility] [address] [id number] [address] [place] [address], [place] [address] May, [facility] [address] [id number] [address] [place] [address], [place] [address] May, [facility] [address] [id number] [address] [place] [address], [place] [address] May, [facility] [address] [id number] [address] [place] [address], [place] [address] May, [facility] [address] [id number] [address] [place] [address], [place] [address] 07 May, 2011 [facility] [address] [id number] [address] [place] [address], [place] [address] Apr, [facility] [address] [id number] [address] [place] [address] Apr, [facility] [address] [id number] [address] [place] [address] Apr, [facility] [address] [id number] [address] [place] [address] Jan, [facility] [address] [id number] [address] [place] [address] Dec, [facility] [address] [id number] [address] [place] [address] October, [facility] [address] [id number] [address] [place] [address] Jun, [facility] [address] [id number] [address] [place] [address] Apr, [facility] [address] [id number] [address] [place] [address] Apr, [facility] [address] [id number] [address] [place] [address] Apr, [facility] [address] [id number] [address] [place] [address] Jun, IMMUNIZATIONS No Known Immunizations SOCIAL HISTORY Never Assessed REASON FOR [place] [facility] [place] VITAL SIGNS MEDICATIONS Unknown Medications RESULTS No Results PROCEDURES No Known procedures INSTRUCTIONS MEDICATIONS ADMINISTERED No Known Medications MEDICAL (GENERAL) HISTORY Type Description Date Medical History Psychiatric disorder Medical History Hard of hearing Surgical History Neofibrous tumor Surgical History back injection Hospitalization History Intestinal blockage Hospitalization History past psychiatric hospitalizations x2
--- OUTSIDE RECORDS SUMMARY | 2020-01-25 13:06 | XMS REPORT ---
Author Author Ana HALE Organization [facility] Address [address] [place] [address] Care Team Providers Care Inpatient Nursing Aide Name Role Phone JAJA HALE Unavailable PROBLEMS Type Condition ICD9-CM Code VDA51-AN Code Onset Dates Condition S tatus SNOMED Code Problem Attention deficit R41.840 Active 76 774678 Problem Chronic hepatitis C without hepatic coma B18.2 Active 552344121 Problem Cannabis abuse F12.10 Active 61888 009 Problem Bipolar disorder, in partial remission, most rec ent episode hypomanic F31.71 Active 408881686 Problem Attention deficit hyperactivity disorder (ADHD), combi luciano type F90.2 Active 07916415 Problem Bipolar 1 disorder F31.9 Active 3 50708029 Problem H/O laminectomy Z98.89 Active 1616 55813 Problem Other chronic pain G89.29 Active 8 4248444 Problem Anxiety disorder, unspecified type F41.9 Active 044319690 ALLERGIES Substance Reaction Event Type Date Status Benzodiazepines Failed UDS (opiates, & THC) Non Drug Allergy Aug Active Amitiza Unknown Non Drug Allergy Aug, Active Hydrocodone Failed UDS (opiates, & THC) Non Drug Allergy Aug, 019 Active Zyprexa Unknown Drug Allergy Aug, Active ENCOUNTERS Encounter Location Date Diagnosis [facility] [address] [facility] [id number] [address] [place] [phone] Aug, [facility] [address] [facility] [id number] [address] [place] [phone] Aug, [facility] [address] [facility] [id number] [address] [place] [phone] Aug, Bipolar disorder, in partial remission, most recent episode hypomanic F31.71 [facility] [address] [facility] [id number] [address] [place] [phone] Aug, Bipolar disorder, in partial remission, most recent episode hypomanic F31.71 ; Attention deficit hyperactivity disorder (ADHD), combined type F90.2 and Anxiety disorder, unspecified type F41.9 [facility] [address] [id number] [address] [place] [phone] Aug, Low back pain M54.5 and Pain in left wrist M25.532 [facility] [address] [id number] [address] [place] [phone] Aug, [facility] [address] [id number] [address] [place] [phone] Jun, [facility] [address] [id number] [address] [place] [phone] Apr, Bipolar disorder, in partial remission, most recent episode hypomanic F31.71 [facility] [address] [id number] [address] [place] [phone] Apr, [facility] [address] [id number] [address] [place] [phone] Apr, Bipolar disorder, in partial remission, most recent episode hypomanic F31.71 ; Attention deficit hyperactivity disorder (ADHD), combined type F90.2 ; Anxiety disorder, unspecified type F41.9 and Other care home (current) 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 Z79.899 [facility] [address] [id number] [address] [place] [phone] Apr, Bipolar disorder, in partial remission, most recent episode hypomanic F31.71 [facility] [address] [id number] [address] [place] [phone] Apr, Bipolar disorder, in partial remission, most recent episode hypomanic F31.71 [facility] [address] [id number] [address] [place] [phone] Mar, [facility] [address] [id number] [address] [place] [phone] Mar, Bipolar disorder, in partial remission, most recent episode hypomanic F31.71 ; Encounter for immunization Z23 and Low back pain M54.5 [facility] [address] [id number] [address] [place] [phone] Mar, Bipolar disorder, in partial remission, most recent episode hypomanic F31.71 [facility] [address] [id number] [address] [place] [phone] Mar, Bipolar disorder, in partial remission, most recent episode hypomanic F31.71 [facility] [address] [id number] [address] [place] [phone] Jan, Bipolar disorder, in partial remission, most recent episode hypomanic F31.71 [facility] [address] [id number] [address] [place] [phone] Jan, Bipolar disorder, in partial remission, most recent episode hypomanic F31.71 [facility] [address] [facility] [id number] [address] [place] [phone] Dec, Bipolar disorder, in partial remission, most recent episode hypomanic F31.71 [facility] [address] [facility] [id number] [address] [place] [phone] Dec, Bipolar disorder, in partial remission, most recent episode hypomanic F31.71 ; Attention deficit hyperactivity disorder (ADHD), combined type F90.2 ; Anxiety disorder, unspecified type F41.9 and Other care home (current) 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 Z79.899 [facility] [address] [id number] [address] [place] [phone] Dec, Bipolar disorder, in partial remission, most recent episode hypomanic F31.71 [facility] [address] [facility] [id number] [address] [place] [phone] Dec, Bipolar disorder, in partial remission, most recent episode hypomanic F31.71 [facility] [address] [id number] [address] [place] [phone] October, Bipolar disorder, in partial remission, most recent episode hypomanic F31.71 [facility] [address] [id number] [address] [place] [phone] October, [facility] [address] [id number] [address] [place] [phone] October, [facility] [address] [id number] [address] [place] [phone] Oct, Bipolar disorder, in partial remission, most recent episode hypomanic F31.71 ; Attention deficit hyperactivity disorder (ADHD), combined type F90.2 ; Anxiety disorder, unspecified type F41.9 and Encounter for drug screening Z02.83 [facility] [address] [id number] [address] [place] [phone] Oct, Bipolar disorder, in partial remission, most recent episode hypomanic F31.71 [facility] [address] [id number] [address] [place] [phone] Oct, Bipolar disorder, in partial remission, most recent episode hypomanic F31.71 [facility] [address] [id number] [address] [place] [phone] Aug, Bipolar disorder, in partial remission, most recent episode hypomanic F31.71 [facility] [address] [facility] [id number] [address] [place] [phone] Aug, Bipolar disorder, in partial remission, most recent episode hypomanic F31.71 [facility] [address] [facility] [id number] [address] [place] [phone] Aug, Bipolar disorder, in partial remission, most recent episode hypomanic F31.71 [facility] [address] [id number] [address] [place] [phone] Jul, Bipolar disorder, in partial remission, most recent episode hypomanic F31.71 ; Attention deficit hyperactivity disorder (ADHD), combined type F90.2 and Anxiety disorder, unspecified type F41.9 [facility] [address] [id number] [address] [place] [phone] Jul, Bipolar disorder, in partial remission, most recent episode hypomanic F31.71 [facility] [address] [id number] [address] [place] [phone] Jun, Bipolar disorder, in partial remission, most recent episode hypomanic F31.71 [facility] [address] [id number] [address] [place] [phone] May, Bipolar disorder, in partial remission, most recent episode hypomanic F31.71 [facility] [address] [id number] [address] [place] [phone] May, Bipolar disorder, in partial remission, most recent episode hypomanic F31.71 [facility] [address] [id number] [address] [place] [phone] Apr, [facility] [address] [id number] [address] [place] [phone] Apr, Bipolar disorder, in partial remission, most recent episode hypomanic F31.71 ; Attention deficit hyperactivity disorder (ADHD), combined type F90.2 ; Anxiety disorder, unspecified type F41.9 and Cannabis abuse F12.10 [facility] [address] [id number] [address] [place] [phone] Apr, Attention deficit hyperactiv ity disorder (ADHD), combined type F90.2 [facility] [address] [facility] [id number] [address] [place] [phone] Mar, Attention deficit hyperactiv ity disorder (ADHD), combined type F90.2 [facility] [address] [id number] [address] [place] [phone] 14 Mar, 2017 Anxiety disorder, unspecifie d type F41.9 [facility] [address] [facility] [id number] [address] [place] [phone] 18 Jan, 2017 Attention deficit hyperactiv ity disorder (ADHD), combined type F90.2 [facility] [address] [id number] [address] [place] [phone] 16 Jan, 2017 Anxiety disorder, unspecifie d type F41.9 [facility] [address] [facility] [id number] [address] [place] [phone] Jan, Other chronic pain G89.29 ; Chronic hepatitis C without hepatic coma B18.2 and Bipolar 1 disorder F31.9 [facility] [address] [facility] [id number] [address] [place] [phone] Dec, Attention deficit hyperactiv ity disorder (ADHD), combined type F90.2 [facility] [address] [facility] [id number] [address] [place] [phone] Dec, Bipolar disorder, in partial remission, most recent episode hypomanic F31.71 ; Attention deficit hyperactivity disorder (ADHD), combined type F90.2 and Anxiety disorder, unspecified type F41.9 [place] [id number] [facility] [id number] [address] [place] [phone] Dec, Bipolar disorder, in partial remission, most recent episode hypomanic F31.71 ; Attention deficit hyperactivity disorder (ADHD), combined type F90.2 and Anxiety disorder, unspecified type F41.9 [facility] [address] [facility] [id number] [address] [place] [phone] Dec, Bipolar 1 disorder F31.9 and Attention deficit R41.840 [facility] [address] [facility] [id number] [address] [place] [phone] Oct, Other chronic pain G89.29 ; Alopecia L65.9 and Screening, lipid Z13.220 [facility] [address] [facility] [id number] [address] [place] [phone] Oct, [facility] [address] [facility] [id number] [address] [place] [phone] Aug, [place] [address] [facility] [id number] [address] [place] [phone] Aug, Eustachian tube dysfunction, right H69.81 ; Vertigo R42 and Other chronic pain G89.29 [facility] [address] [facility] [id number] [address] [place] [phone] Aug, [facility] [address] [id number] [address] [place] [phone] Jun, [facility] [address] [id number] [address] [place] [phone] Jun, Low back pain M54.5 and Othe r chronic pain G89.29 [facility] [address] [id number] [address] [place] [phone] Jun, [facility] [address] [id number] [address] [place] [phone] May, [facility] [address] [id number] [address] [place] [phone] Jan, [facility] [address] [id number] [address] [place] [phone] Dec, [facility] [address] [id number] [address] [place] [phone] Dec, [facility] [address] [id number] [address] [place] [phone] Jun, [facility] [address] [facility] [id number] [address] [place] [phone] Apr, Eustachian tube dysfunction, unspecified laterality H69.80 ; Hot flashes N95.1 and Encounter for immunization Z23 [facility] [address] [id number] [address] [place] [phone] Jan, [facility] [address] [id number] [address] [place] [phone] Jan, [facility] [address] [id number] [address] [place] [phone] Jan, [facility] [address] [id number] [address] [place] [phone] Jan, [facility] [address] [id number] [address] [place] [phone] Jan, Encounter to establish care V65.8 ; Bipolar 1 disorder 296.7 ; Abdominal pain 789.00 ; Constipation 564.00 ; Hard of hearing 389.9 and Drug abuse 305.90 [facility] [address] [id number] [address] [place] [phone] Dec, [facility] [address] [facility] [id number] [address] [place] [phone] October, [facility] [address] [id number] [address] [place] [phone] October, [facility] [address] [id number] [address] [place] [phone] Oct, [facility] [address] [facility] [id number] [address] [place] [phone] Oct, [facility] [address] [facility] [id number] [address] [place] [phone] Oct, [facility] [address] [facility] [id number] [address] [place] [phone] Aug, [facility] [address] [facility] [id number] [address] [place] [phone] Aug, [facility] [address] [facility] [id number] [address] [place] [phone] Aug, [facility] [address] [facility] [id number] [address] [place] [phone] Aug, [facility] [address] [facility] [id number] [address] [place] [phone] Aug, [facility] [address] [facility] [id number] [address] [place] [phone] Aug, [facility] [address] [facility] [id number] [address] [place] [phone] Aug, [facility] [address] [facility] [id number] [address] [place] [phone] Aug, [facility] [address] [id number] [address] [place] [address], [place] [address] Aug, 2014 [facility] [address] [id number] [address] [place] [address], [place] [address] Aug, 2014 [facility] [address] [id number] [address] [place] [address], [place] [address] Aug, 2014 [facility] [address] [id number] [address] [place] [address], [place] [address] Aug, 2014 [facility] [address] [id number] [address] [place] [address], [place] [address] Aug, [facility] [address] [id number] [address] [place] [address], [place] [address] Aug, [facility] [address] [id number] [address] [place] [address], [place] [address] Aug, [facility] [address] [id number] [address] [place] [address], [place] [address] Jul, [facility] [address] [id number] [address] [place] [address], [place] [address] Jul, [facility] [address] [id number] [address] [place] [address], [place] [address] Jul, [facility] [address] [id number] [address] [place] [address], [place] [address] Jul, [facility] [address] [id number] [address] [place] [address], [place] [address] Jul, [facility] [address] [id number] [address] [place] [address], [place] [address] Jul, [facility] [address] [id number] [address] [place] [address], [place] [address] Jul, [facility] [address] [id number] [address] [place] [address], [place] [address] Jul, [facility] [address] [id number] [address] [place] [address], [place] [address] 29 Jun, 2014 [facility] [address] [id number] [address] [place] [address], [place] [address] Jun, [facility] [address] [id number] [address] [place] [address], [place] [address] Jun, [facility] [address] [id number] [address] [place] [address], [place] [address] Jun, [facility] [address] [id number] [address] [place] [address], [place] [address] Jun, [facility] [address] [id number] [address] [place] [address], [place] [address] Jun, [facility] [address] [id number] [address] [place] [address], [place] [address] Jun, [facility] [address] [id number] [address] [place] [address], [place] [address] Jun, [facility] [address] [id number] [address] [place] [address], [place] [address] Jun, [facility] [address] [id number] [address] [place] [address], [place] [address] Jun, [facility] [address] [id number] [address] [place] [address], [place] [address] Jun, [facility] [address] [id number] [address] [place] [address], [place] [address] May, [facility] [address] [id number] [address] [place] [address], [place] [address] May, [facility] [address] [id number] [address] [place] [address], [place] [address] May, [facility] [address] [id number] [address] [place] [address], [place] [address] May, [facility] [address] [id number] [address] [place] [address], [place] [address] May, [facility] [address] [id number] [address] [place] [address], [place] [address] May, [facility] [address] [id number] [address] [place] [address], [place] [address] May, [facility] [address] [id number] [address] [place] [address], [place] [address] Apr, [facility] [address] [id number] [address] [place] [address], [place] [address] Apr, [facility] [address] [id number] [address] [place] [address], [place] [address] Apr, [facility] [address] [id number] [address] [place] [address], [place] [address] Apr, [facility] [address] [id number] [address] [place] [address], [place] [address] Apr, [facility] [address] [id number] [address] [place] [address], [place] [address] Apr, [facility] [address] [id number] [address] [place] [address], [place] [address] Mar, [facility] [address] [id number] [address] [place] [address], [place] [address] Mar, [facility] [address] [id number] [address] [place] [address], [place] [address] Mar, [facility] [address] [id number] [address] [place] [address], [place] [address] Mar, [facility] [address] [id number] [address] [place] [address], [place] [address] Mar, [facility] [address] [id number] [address] [place] [address], [place] [address] Mar, [facility] [address] [id number] [address] [place] [address], [place] [address] Jan, [facility] [address] [id number] [address] [place] [address], [place] [address] Jan, [facility] [address] [id number] [address] [place] [address], [place] [address] Jan, [facility] [address] [id number] [address] [place] [address], [place] [address] Jan, [facility] [address] [id number] [address] [place] [address], [place] [address] Dec, [facility] [address] [id number] [address] [place] [address], [place] [address] Dec, [facility] [address] [id number] [address] [place] [address], [place] [address] Dec, [facility] [address] [id number] [address] [place] [address], [place] [address] Dec, [facility] [address] [id number] [address] [place] [address], [place] [address] Dec, [facility] [address] [id number] [address] [place] [address], [place] [address] Dec, [facility] [address] [id number] [address] [place] [address], [place] [address] Dec, [facility] [address] [id number] [address] [place] [address], [place] [address] Dec, [facility] [address] [id number] [address] [place] [address], [place] [address] Dec, [facility] [address] [id number] [address] [place] [address], [place] [address] Dec, [facility] [address] [id number] [address] [place] [address], [place] [address] Dec, [facility] [address] [id number] [address] [place] [address], [place] [address] Dec, [facility] [address] [id number] [address] [place] [address], [place] [address] October, [facility] [address] [id number] [facility] [place] [address] October, [facility] [address] [id number] [address] [place] [address], [place] [address] October, [facility] [address] [id number] [address] [place] [address], [place] [address] October, [facility] [address] [id number] [address] [place] [address], [place] [address] October, [facility] [address] [id number] [address] [place] [address], [place] [address] October, [facility] [address] [id number] [address] [place] [address], [place] [address] Oct, [facility] [address] [id number] [address] [place] [address], [place] [address] Oct, [facility] [address] [id number] [address] [place] [address], [place] [address] Oct, [facility] [address] [id number] [address] [place] [address], [place] [address] Oct, [facility] [address] [id number] [address] [place] [address], [place] [address] Oct, [facility] [address] [id number] [address] [place] [address], [place] [address] Oct, [facility] [address] [id number] [address] [place] [address], [place] [address] Oct, [facility] [address] [id number] [address] [place] [address], [place] [address] Oct, [facility] [address] [id number] [address] [place] [address], [place] [address] Oct, [facility] [address] [id number] [address] [place] [address], [place] [address] Oct, [facility] [address] [id number] [address] [place] [address], [place] [address] Oct, [facility] [address] [id number] [facility] [place] [address] Oct, [facility] [address] [id number] [address] [place] [address], [place] [address] Aug, [facility] [address] [id number] [facility] [place] [address] Aug, [facility] [address] [id number] [address] [place] [address], [place] [address] Aug, [facility] [address] [id number] [address] [place] [address], [place] [address] Aug, [facility] [address] [id number] [address] [place] [address], [place] [address] Aug, [facility] [address] [id number] [address] [place] [address], [place] [address] Aug, [facility] [address] [id number] [address] [place] [address], [place] [address] Aug, [facility] [address] [id number] [address] [place] [address], [place] [address] Aug, [facility] [address] [id number] [address] [place] [address], [place] [address] Aug, [facility] [address] [id number] [address] [place] [address], [place] [address] Aug, [facility] [address] [id number] [address] [place] [address], [place] [address] Aug, [facility] [address] [id number] [address] [place] [address], [place] [address] Aug, [facility] [address] [id number] [address] [place] [address], [place] [address] Aug, [facility] [address] [id number] [address] [place] [address], [place] [address] Aug, [facility] [address] [id number] [address] [place] [address], [place] [address] 14 Aug, 2013 [facility] [address] [id number] [address] [place] [address], [place] [address] 14 Aug, 2013 [facility] [address] [id number] [address] [place] [address], [place] [address] 14 Aug, 2013 [facility] [address] [id number] [address] [place] [address], [place] [address] 14 Aug, 2013 [facility] [address] [id number] [address] [place] [address], [place] [address] 07 Aug, 2013 [facility] [address] [id number] [address] [place] [address], [place] [address] 07 Aug, 2013 [facility] [address] [id number] [address] [place] [address], [place] [address] 06 Aug, 2013 [facility] [address] [id number] [address] [place] [address], [place] [address] 06 Aug, 2013 [facility] [address] [id number] [address] [place] [address], [place] [address] 04 Aug, 2013 [facility] [address] [id number] [address] [place] [address], [place] [address] 04 Aug, 2013 [facility] [address] [id number] [address] [place] [address], [place] [address] Aug, [facility] [address] [id number] [address] [place] [address], [place] [address] Jul, [facility] [address] [id number] [address] [place] [address], [place] [address] Jul, [facility] [address] [id number] [address] [place] [address], [place] [address] Jul, [facility] [address] [id number] [address] [place] [address], [place] [address] Jul, [facility] [address] [id number] [address] [place] [address], [place] [address] Jul, [facility] [address] [id number] [address] [place] [address], [place] [address] Jul, [facility] [address] [id number] [address] [place] [address], [place] [address] Jul, [facility] [address] [id number] [address] [place] [address], [place] [address] Jul, [facility] [address] [id number] [address] [place] [address], [place] [address] Jul, [facility] [address] [id number] [address] [place] [address], [place] [address] Jul, [facility] [address] [id number] [address] [place] [address], [place] [address] Jul, [facility] [address] [id number] [address] [place] [address], [place] [address] Jul, [facility] [address] [id number] [address] [place] [address], [place] [address] Jul, [facility] [address] [id number] [address] [place] [address], [place] [address] Jul, [facility] [address] [id number] [address] [place] [address], [place] [address] Jul, [facility] [address] [id number] [address] [place] [address], [place] [address] Jul, [facility] [address] [id number] [address] [place] [address], [place] [address] Jul, [facility] [address] [id number] [address] [place] [address], [place] [address] Jul, [facility] [address] [id number] [address] [place] [address], [place] [address] Jul, [facility] [address] [id number] [address] [place] [address], [place] [address] Jul, [facility] [address] [id number] [address] [place] [address], [place] [address] 31 Jun, 2013 [facility] [address] [id number] [address] [place] [address], [place] [address] 31 Jun, [address] [facility] [address] [id number] [address] [place] [address], [place] [address] Jun, [facility] [address] [id number] [address] [place] [address], [place] [address] 30 Jun, 2013 [facility] [address] [id number] [address] [place] [address], [place] [address] Jun, [facility] [address] [id number] [address] [place] [address], [place] [address] Jun, [facility] [address] [id number] [address] [place] [address], [place] [address] Jun, [facility] [address] [id number] [address] [place] [address], [place] [address] Jun, [facility] [address] [id number] [address] [place] [address], [place] [address] 24 Jun, [address] [facility] [address] [id number] [address] [place] [address], [place] [address] Jun, [facility] [address] [id number] [address] [place] [address], [place] [address] Jun, [facility] [address] [id number] [address] [place] [address], [place] [address] Jun, [facility] [address] [id number] [address] [place] [address], [place] [address] Jun, [facility] [address] [id number] [address] [place] [address], [place] [address] Jun, [facility] [address] [id number] [address] [place] [address], [place] [address] Jun, [facility] [address] [id number] [address] [place] [address], [place] [address] 18 Jun, 2013 [facility] [address] [id number] [address] [place] [address], [place] [address] 18 Jun, 2013 [facility] [address] [id number] [address] [place] [address], [place] [address] 17 Jun, 2013 [facility] [address] [id number] [address] [place] [address], [place] [address] 17 Jun, 2013 [facility] [address] [id number] [address] [place] [address], [place] [address] 13 Jun, 2013 [facility] [address] [id number] [address] [place] [address], [place] [address] Jun, [facility] [address] [id number] [address] [place] [address], [place] [address] Jun, [facility] [address] [id number] [address] [place] [address], [place] [address] Jun, [facility] [address] [id number] [address] [place] [address], [place] [address] 05 Jun, 2013 [facility] [address] [id number] [address] [place] [address], [place] [address] Jun, [facility] [address] [id number] [address] [place] [address], [place] [address] 04 Jun, 2013 [facility] [address] [id number] [address] [place] [address], [place] [address] Jun, [facility] [address] [id number] [address] [place] [address] May, [facility] [address] [id number] [address] [place] [address], [place] [address] May, [facility] [address] [id number] [address] [place] [address], [place] [address] May, [facility] [address] [id number] [address] [place] [address] May, [facility] [address] [id number] [address] [place] [address] 05 May, 2013 [facility] [address] [id number] [address] [place] [address], [place] [address] May, [facility] [address] [id number] [address] [place] [address], [place] [address] 30 Apr, 2013 [facility] [address] [id number] [address] [place] [address], [place] [address] 30 Apr, 2013 [facility] [address] [id number] [address] [place] [address], [place] [address] 30 Apr, 2013 [facility] [address] [id number] [address] [place] [address], [place] [address] 30 Apr, 2013 [facility] [address] [id number] [address] [place] [address], [place] [address] Apr, [facility] [address] [id number] [address] [place] [address], [place] [address] Apr, [facility] [address] [id number] [address] [place] [address], [place] [address] 15 Apr, 2013 [facility] [address] [id number] [address] [place] [address], [place] [address] Apr, [facility] [address] [id number] [address] [place] [address], [place] [address] 26 Mar, 2013 [facility] [address] [id number] [address] [place] [address], [place] [address] 24 Sep, 2012 [facility] [address] [id number] [address] [place] [address], [place] [address] 17 Sep, 2012 [facility] [address] [id number] [address] [place] [address], [place] [address] 17 Sep, 2012 [facility] [address] [id number] [address] [place] [address], [place] [address] 11 Sep, 2012 [facility] [address] [id number] [address] [place] [address], [place] [address] 10 Sep, 2012 [facility] [address] [id number] [facility] [place] [address] 05 Mar, 2013 [facility] [address] [id number] [address] [place] [address], [place] [address] Mar, [facility] [address] [id number] [address] [place] [address], [place] [address] Jan, [facility] [address] [id number] [address] [place] [address], [place] [address] Jan, [facility] [address] [id number] [address] [place] [address], [place] [address] Jan, [facility] [address] [id number] [address] [place] [address], [place] [address] Jan, [facility] [address] [id number] [address] [place] [address], [place] [address] Jan, [facility] [address] [id number] [address] [place] [address], [place] [address] Jan, [facility] [address] [id number] [address] [place] [address], [place] [address] Dec, [facility] [address] [id number] [address] [place] [address], [place] [address] Dec, [facility] [address] [id number] [address] [place] [address], [place] [address] Dec, [facility] [address] [id number] [address] [place] [address], [place] [address] Dec, [facility] [address] [id number] [address] [place] [address], [place] [address] Dec, [facility] [address] [id number] [address] [place] [address], [place] [address] Dec, [facility] [address] [id number] [address] [place] [address], [place] [address] Dec, [facility] [address] [id number] [address] [place] [address], [place] [address] 16 Dec, 2012 [facility] [address] [id number] [facility] [place] [address] 15 Dec, 2012 [facility] [address] [id number] [address] [place] [address], [place] [address] Dec, [facility] [address] [id number] [address] [place] [address], [place] [address] Dec, [facility] [address] [id number] [address] [place] [address], [place] [address] Dec, [facility] [address] [id number] [address] [place] [address], [place] [address] Dec, [facility] [address] [id number] [address] [place] [address], [place] [address] Dec, [facility] [address] [id number] [address] [place] [address], [place] [address] Dec, [facility] [address] [id number] [address] [place] [address], [place] [address] Dec, [facility] [address] [id number] [address] [place] [address], [place] [address] October, [facility] [address] [id number] [address] [place] [address], [place] [address] October, [facility] [address] [id number] [address] [place] [address], [place] [address] October, [facility] [address] [id number] [address] [place] [address], [place] [address] October, [facility] [address] [id number] [address] [place] [address], [place] [address] October, [facility] [address] [id number] [address] [place] [address], [place] [address] October, [facility] [address] [id number] [address] [place] [address], [place] [address] October, [facility] [address] [id number] [address] [place] [address], [place] [address] 29 Oct, 2012 [facility] [address] [id number] [address] [place] [address], [place] [address] 26 Oct, 2012 [facility] [address] [id number] [address] [place] [address], [place] [address] 24 Oct, 2012 [facility] [address] [id number] [address] [place] [address], [place] [address] 23 Oct, 2012 [facility] [address] [id number] [address] [place] [address], [place] [address] 19 Oct, 2012 [facility] [address] [id number] [address] [place] [address], [place] [address] 18 Oct, 2012 [facility] [address] [id number] [address] [place] [address], [place] [address] 17 Oct, 2012 [facility] [address] [id number] [address] [place] [address], [place] [address] 15 Oct, [address] [facility] [address] [id number] [address] [place] [address], [place] [address] 12 Oct, 2012 [facility] [address] [id number] [address] [place] [address], [place] [address] Oct, [facility] [address] [id number] [address] [place] [address], [place] [address] Oct, [facility] [address] [id number] [address] [place] [address], [place] [address] 02 Oct, [address] [facility] [address] [id number] [address] [place] [address], [place] [address] Aug, [facility] [address] [id number] [address] [place] [address], [place] [address] Aug, [facility] [address] [id number] [address] [place] [address], [place] [address] Aug, [facility] [address] [id number] [address] [place] [address], [place] [address] 06 Aug, 2012 [facility] [address] [id number] [address] [place] [address], [place] [address] 05 Aug, 2012 [facility] [address] [id number] [address] [place] [address], [place] [address] 05 Aug, 2012 [facility] [address] [id number] [address] [place] [address], [place] [address] 20 Aug, 2012 [facility] [address] [id number] [address] [place] [address], [place] [address] 14 Aug, 2012 [facility] [address] [id number] [address] [place] [address], [place] [address] 12 Aug, 2012 [facility] [address] [id number] [address] [place] [address], [place] [address] Aug, [facility] [address] [id number] [address] [place] [address], [place] [address] 29 Jul, 2012 [facility] [address] [id number] [address] [place] [address], [place] [address] 15 Jul, 2012 [facility] [address] [id number] [address] [place] [address], [place] [address] 08 Jul, 2012 [facility] [address] [id number] [address] [place] [address], [place] [address] Jun, [facility] [address] [id number] [address] [place] [address], [place] [address] 18 Jun, 2012 [facility] [address] [id number] [address] [place] [address], [place] [address] 18 Jun, 2012 [facility] [address] [id number] [address] [place] [address], [place] [address] 18 Jun, 2012 [facility] [address] [id number] [address] [place] [address], [place] [address] 18 Jun, 2012 [facility] [address] [id number] [address] [place] [address], [place] [address] 14 Jun, 2012 [facility] [address] [id number] [address] [place] [address], [place] [address] 14 Jun, 2012 [facility] [address] [id number] [address] [place] [address], [place] [address] 13 Jun, 2012 [facility] [address] [id number] [address] [place] [address], [place] [address] 13 Jun, 2012 [facility] [address] [id number] [address] [place] [address], [place] [address] 11 Jun, 2012 [facility] [address] [id number] [address] [place] [address], [place] [address] 11 Jun, 2012 [facility] [address] [id number] [address] [place] [address], [place] [address] 11 Jun, 2012 [facility] [address] [id number] [address] [place] [address], [place] [address] 11 Jun, 2012 [facility] [address] [id number] [address] [place] [address], [place] [address] 07 Jun, 2012 [facility] [address] [id number] [address] [place] [address], [place] [address] 07 Jun, 2012 [facility] [address] [id number] [address] [place] [address], [place] [address] 06 Jun, 2012 [facility] [address] [id number] [address] [place] [address], [place] [address] 06 Jun, 2012 [facility] [address] [id number] [address] [place] [address], [place] [address] 06 Jun, 2012 [facility] [address] [id number] [address] [place] [address], [place] [address] 06 Jun, 2012 [facility] [address] [id number] [address] [place] [address], [place] [address] 05 Jun, 2012 [facility] [address] [id number] [address] [place] [address], [place] [address] 05 Jun, 2012 [facility] [address] [id number] [address] [place] [address], [place] [address] 04 Jun, 2012 [facility] [address] [id number] [address] [place] [address], [place] [address] Jun, [facility] [address] [id number] [address] [place] [address], [place] [address] May, [facility] [address] [id number] [address] [place] [address], [place] [address] May, [facility] [address] [id number] [address] [place] [address], [place] [address] May, [facility] [address] [id number] [address] [place] [address], [place] [address] May, [facility] [address] [id number] [address] [place] [address], [place] [address] May, [facility] [address] [id number] [address] [place] [address], [place] [address] May, [facility] [address] [id number] [address] [place] [address], [place] [address] May, [facility] [address] [id number] [address] [place] [address], [place] [address] May, [facility] [address] [id number] [address] [place] [address], [place] [address] Apr, [facility] [address] [id number] [address] [place] [address], [place] [address] Apr, [facility] [address] [id number] [address] [place] [address], [place] [address] 29 Apr, 2012 [facility] [address] [id number] [address] [place] [address], [place] [address] Apr, [facility] [address] [id number] [address] [place] [address], [place] [address] Apr, [facility] [address] [id number] [address] [place] [address], [place] [address] Apr, [facility] [address] [id number] [address] [place] [address], [place] [address] Apr, [facility] [address] [id number] [address] [place] [address], [place] [address] Apr, [facility] [address] [id number] [address] [place] [address], [place] [address] Apr, [facility] [address] [id number] [address] [place] [address], [place] [address] Apr, [facility] [address] [id number] [address] [place] [address], [place] [address] Apr, [facility] [address] [id number] [address] [place] [address], [place] [address] Apr, [facility] [address] [id number] [address] [place] [address], [place] [address] Mar, [facility] [address] [id number] [address] [place] [address], [place] [address] 18 Mar, 2012 [facility] [address] [id number] [address] [place] [id number] Mar, [facility] [address] [id number] [address] [place] [id number] Mar, [facility] [address] [id number] [address] [place] [id number] Mar, [facility] [address] [id number] [address] [place] [id number] Mar, [facility] [address] [id number] [address] [place] [phone] Mar, [facility] [address] [id number] [address] [place] [phone] Jan, [facility] [address] [id number] [address] [place] [phone] Jan, [facility] [address] [id number] [address] [place] [id number] Jan, [facility] [address] [id number] [address] [place] [address] [place] [id number] Jan, [facility] [address] [id number] [address] [place] [address], [place] [address] Jan, [facility] [address] [id number] [address] [place] [address], [place] [address] Jan, [facility] [address] [id number] [address] [place] [address], [place] [address] Jan, [facility] [address] [id number] [address] [place] [address], [place] [address] Jan, [facility] [address] [id number] [address] [place] [address], [place] [address] Jan, [facility] [address] [id number] [address] [place] [address], [place] [address] Jan, [facility] [address] [id number] [address] [place] [address], [place] [address] Jan, [facility] [address] [id number] [address] [place] [address], [place] [address] Dec, [facility] [address] [id number] [address] [place] [address], [place] [address] Dec, [facility] [address] [id number] [address] [place] [address], [place] [address] Dec, [facility] [address] [id number] [address] [place] [address], [place] [address] Dec, [facility] [address] [id number] [address] [place] [address], [place] [address] Dec, [facility] [address] [id number] [address] [place] [address], [place] [address] Dec, [facility] [address] [id number] [address] [place] [address], [place] [address] Dec, [facility] [address] [id number] [address] [place] [address], [place] [address] Dec, [facility] [address] [id number] [facility] [place] [phone] 16 Jan, 2012 [facility] [address] [id number] [facility] [place] [address] 13 Jan, 2012 [facility] [address] [id number] [facility] [place] [phone] 13 Jan, 2012 [facility] [address] [id number] [address] [place] [address], [place] [address] 02 Jan, 2012 [facility] [address] [id number] [address] [place] [address], [place] [address] Dec, [facility] [address] [id number] [address] [place] [address], [place] [address] Dec, [facility] [address] [id number] [address] [place] [address], [place] [address] Dec, [facility] [address] [id number] [address] [place] [address], [place] [address] Dec, [facility] [address] [id number] [address] [place] [address], [place] [address] 15 Dec, 2011 [facility] [address] [id number] [address] [place] [address], [place] [address] Dec, [facility] [address] [id number] [address] [place] [address], [place] [address] 05 Dec, 2011 [facility] [address] [id number] [address] [place] [address], [place] [address] October, [facility] [address] [id number] [address] [place] [address], [place] [address] October, [facility] [address] [id number] [address] [place] [address], [place] [address] October, [facility] [address] [id number] [address] [place] [address], [place] [address] October, [facility] [address] [id number] [address] [place] [address], [place] [address] October, [facility] [address] [id number] [address] [place] [address], [place] [address] October, [facility] [address] [id number] [address] [place] [address], [place] [address] Oct, [facility] [address] [id number] [address] [place] [address], [place] [address] Oct, [facility] [address] [id number] [address] [place] [address], [place] [address] Oct, [facility] [address] [id number] [address] [place] [address], [place] [address] Oct, [facility] [address] [id number] [address] [place] [address], [place] [address] Oct, [facility] [address] [id number] [address] [place] [address], [place] [address] Oct, [facility] [address] [id number] [address] [place] [address], [place] [address] Oct, [facility] [address] [id number] [address] [place] [address], [place] [address] Aug, [facility] [address] [id number] [address] [place] [address], [place] [address] Aug, [facility] [address] [id number] [address] [place] [address], [place] [address] Aug, [facility] [address] [id number] [address] [place] [address], [place] [address] Aug, [facility] [address] [id number] [address] [place] [address], [place] [address] Aug, [facility] [address] [id number] [address] [place] [address], [place] [address] Aug, [facility] [address] [id number] [address] [place] [address], [place] [address] Aug, [facility] [address] [id number] [address] [place] [address], [place] [address] Aug, [facility] [address] [id number] [address] [place] [address], [place] [address] Aug, [facility] [address] [id number] [address] [place] [address], [place] [address] Jul, [facility] [address] [id number] [address] [place] [address], [place] [address] Jul, [facility] [address] [id number] [address] [place] [address], [place] [address] Jul, [facility] [address] [id number] [address] [place] [address], [place] [address] Jul, [facility] [address] [id number] [address] [place] [address], [place] [address] Jun, [facility] [address] [id number] [address] [place] [address], [place] [address] Jun, [facility] [address] [id number] [address] [place] [address], [place] [address] May, [facility] [address] [id number] [address] [place] [address], [place] [address] May, [facility] [address] [id number] [address] [place] [address], [place] [address] May, [facility] [address] [id number] [address] [place] [address], [place] [address] May, [facility] [address] [id number] [address] [place] [address], [place] [address] May, [facility] [address] [id number] [address] [place] [address], [place] [address] Apr, [facility] [address] [id number] [address] [place] [address], [place] [address] Apr, [facility] [address] [id number] [address] [place] [address], [place] [address] Apr, [facility] [address] [id number] [address] [place] [phone] Jan, [facility] [address] [id number] [address] [place] [phone] Dec, [facility] [address] [id number] [address] [place] [phone] October, [facility] [address] [id number] [address] [place] [phone] Jun, [facility] [address] [id number] [address] [place] [phone] Apr, [facility] [address] [id number] [address] [place] [phone] Apr, [facility] [address] [id number] [address] [place] [phone] Apr, [facility] [address] [id number] [address] [place] [phone] Jun, IMMUNIZATIONS No Known Immunizations SOCIAL HISTORY Never Assessed REASON FOR VISIT [facility] follow up Pt in for follow up [facility] [place] PLAN OF CARE Activity Details Follow Up prn Reason: VITAL SIGNS Height 69 in 2018-08-13 Weight 240.1 lbs 2018-08-13 Temperature 97.8 degrees Fahrenheit 2018-08-13 Heart Rate 106 bpm 2018-08-13 Respiratory Rate 20 2018-08-13 Oximetry 97 % 2018-08-13 BMI 35.45 kg/m2 2018-08-13 Blood pressure systolic 136 mmHg 2018-08-13 Blood pressure diastolic 76 mmHg 2018-08-13 MEDICATIONS Medication Instructions Dosage Frequency Start Date End Date Duration S tatus Gabapentin 800 MG Orally 4 times a day 1 tablet 6h 30 Active Seroquel 400 MG TAKE TWO TABLETS BY MOUTH ONCE DAILY AT BEDTIME Active Prazosin HCl 5 mg Orally Once a day TAKE ONE CAPSULE BY MOUTH ONCE DAILY AT BEDTIME 24h 30 Not-Taking Plus Iron 29-1 MG Orally Once a day 1 tablet 24h 90 days Not-Taking HydrOXYzine HCl 50 mg Orally 3 times a day 1 tablet as needed 8h Not-Taking RESULTS No Results PROCEDURES Procedure Date Ordered Result Body Site [facility] VISIT ESTABLISHED PATIENT Aug 13, 2018 INSTRUCTIONS MEDICATIONS ADMINISTERED No Known Medications MEDICAL (GENERAL) HISTORY Type Description Date Medical History Psychiatric disorder Medical History Hard of hearing Surgical History Neofibrous tumor Surgical History back injection Hospitalization History Intestinal blockage Hospitalization History past psychiatric hospitalizations x2
--- OUTSIDE RECORDS SUMMARY | 2020-01-25 13:06 | XMS REPORT ---
Author Author Ana ESCAMILLA KWAME [facility] Address [address] [place] [address] Care Team Providers Care Seafood Service Team Member Name Role Phone Jackie ESCAMILLAYEN Unavailable PROBLEMS Type Condition ICD9-CM Code [id number] Code Onset Dates Condition S tatus SNOMED Code Problem Attention deficit R41.840 Active 76 087614 Problem Cannabis abuse F12.10 Active 57982 009 Problem Chronic hepatitis C without hepatic coma B18.2 Active 537299509 Problem Attention deficit hyperactivity disorder (ADHD), combi luciano type F90.2 Active 74740600 Problem Bipolar disorder, in partial remission, most rec ent episode hypomanic F31.71 Active 358727240 Problem H/O laminectomy Z98.89 Active 1616 75105 Problem Bipolar 1 disorder F31.9 Active 3 04075670 Problem Anxiety disorder, unspecified type F41.9 Active 791904190 Problem Other chronic pain G89.29 Active 8 3570459 ALLERGIES No Information ENCOUNTERS Encounter Location Date Diagnosis [facility] [address] [facility] [id number] [address] [place] [id number] Jul, [facility] [address] [facility] [id number] [address] [place] [phone] Jun, [facility] [address] [facility] [id number] [address] [place] [address] Apr, Bipolar disorder, in partial remission, most recent episode hypomanic F31.71 [facility] [address] [facility] [id number] [address] [place] [address] Apr, [facility] [address] [facility] [id number] [address] [place] [address] Apr, Bipolar disorder, in partial remission, most recent episode hypomanic F31.71 ; Attention deficit hyperactivity disorder (ADHD), combined type F90.2 ; Anxiety disorder, unspecified type F41.9 and 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 [facility] [address] [id number] [address] [place] [address] Apr, Bipolar disorder, in partial remission, most recent episode hypomanic F31.71 [facility] [address] [id number] [address] [place] [address] Apr, Bipolar disorder, in partial remission, most recent episode hypomanic F31.71 [facility] [address] [id number] [address] [place] [phone] Mar, [facility] [address] [id number] [address] [place] [address] Mar, Bipolar disorder, in partial remission, most recent episode hypomanic F31.71 ; Encounter for immunization Z23 and Low back pain M54.5 [facility] [address] [id number] [address] [place] [address] Mar, Bipolar disorder, in partial remission, most recent episode hypomanic F31.71 [facility] [address] [id number] [address] [place] [phone] Mar, Bipolar disorder, in partial remission, most recent episode hypomanic F31.71 [facility] [address] [id number] [address] [place] [id number] Jan, Bipolar disorder, in partial remission, most recent episode hypomanic F31.71 [facility] [address] [facility] [id number] [address] [place] [phone] Jan, Bipolar disorder, in partial remission, most recent episode hypomanic F31.71 [facility] [address] [id number] [address] [place] [address] Dec, Bipolar disorder, in partial remission, most recent episode hypomanic F31.71 [facility] [address] [id number] [address] [place] [address] Dec, Bipolar disorder, in partial remission, most recent episode hypomanic F31.71 ; Attention deficit hyperactivity disorder (ADHD), combined type F90.2 ; Anxiety disorder, unspecified type F41.9 and Other chcf (current) 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 Z79.899 [facility] [address] [id number] [address] [place] [phone] Dec, Bipolar disorder, in partial remission, most recent episode hypomanic F31.71 [facility] [address] [id number] [address] [place] [address] Dec, Bipolar disorder, in partial remission, most recent episode hypomanic F31.71 [facility] [address] [id number] [address] [place] [id number] October, Bipolar disorder, in partial remission, most recent episode hypomanic F31.71 [facility] [address] [id number] [address] [place] [address] October, [facility] [address] [id number] [address] [place] [id number] October, [facility] [address] [id number] [address] [place] [id number] Oct, Bipolar disorder, in partial remission, most recent episode hypomanic F31.71 ; Attention deficit hyperactivity disorder (ADHD), combined type F90.2 ; Anxiety disorder, unspecified type F41.9 and Encounter for drug screening Z02.83 [facility] [address] [id number] [address] [place] [address] Oct, Bipolar disorder, in partial remission, most recent episode hypomanic F31.71 [facility] [address] [id number] [address] [place] [phone] Oct, Bipolar disorder, in partial remission, most recent episode hypomanic F31.71 [facility] [address] [id number] [address] [place] [address] Aug, Bipolar disorder, in partial remission, most recent episode hypomanic F31.71 [facility] [address] [id number] [address] [place] [address] Aug, Bipolar disorder, in partial remission, most recent episode hypomanic F31.71 [facility] [address] [id number] [address] [place] [address] Aug, Bipolar disorder, in partial remission, most recent episode hypomanic F31.71 [facility] [address] [facility] [id number] [address] [place] [id number] Jul, Bipolar disorder, in partial remission, most recent episode hypomanic F31.71 ; Attention deficit hyperactivity disorder (ADHD), combined type F90.2 and Anxiety disorder, unspecified type F41.9 [facility] [address] [facility] [id number] [address] [place] [phone] Jul, Bipolar disorder, in partial remission, most recent episode hypomanic F31.71 [facility] [address] [facility] [id number] [address] [place] [phone] Jun, Bipolar disorder, in partial remission, most recent episode hypomanic F31.71 [facility] [address] [id number] [address] [place] [address] May, Bipolar disorder, in partial remission, most recent episode hypomanic F31.71 [facility] [address] [facility] [id number] [address] [place] [address] May, Bipolar disorder, in partial remission, most recent episode hypomanic F31.71 [facility] [address] [facility] [id number] [address] [place] [id number] Apr, [facility] [address] [id number] [address] [place] [phone] Apr, Bipolar disorder, in partial remission, most recent episode hypomanic F31.71 ; Attention deficit hyperactivity disorder (ADHD), combined type F90.2 ; Anxiety disorder, unspecified type F41.9 and Cannabis abuse F12.10 [facility] [address] [id number] [address] [place] [id number] Apr, Attention deficit hyperactiv ity disorder (ADHD), combined type F90.2 [facility] [address] [id number] [facility] [place] [address] 21 Mar, 2017 Attention deficit hyperactiv ity disorder (ADHD), combined type F90.2 [facility] [address] [id number] [facility] [place] [address] 14 Mar, 2017 Anxiety disorder, unspecifie d type F41.9 [facility] [address] [id number] [address] [place] [phone] Jan, Attention deficit hyperactiv ity disorder (ADHD), combined type F90.2 [facility] [address] [id number] [address] [place] [id number] Jan, Anxiety disorder, unspecifie d type F41.9 [facility] [address] [facility] [id number] [address] [place] [address] Jan, Other chronic pain G89.29 ; Chronic hepatitis C without hepatic coma B18.2 and Bipolar 1 disorder F31.9 [facility] [address] [id number] [address] [place] [address], [place] [address] Dec, Attention deficit hyperactiv ity disorder (ADHD), combined type F90.2 [facility] [address] [id number] [address] [place] [address], [place] [address] Dec, Bipolar disorder, in partial remission, most recent episode hypomanic F31.71 ; Attention deficit hyperactivity disorder (ADHD), combined type F90.2 and Anxiety disorder, unspecified type F41.9 [facility] [address] [id number] [address] [place] [address], [place] [address] 28 Dec, 2016 Bipolar disorder, in partial remission, most recent episode hypomanic F31.71 ; Attention deficit hyperactivity disorder (ADHD), combined type F90.2 and Anxiety disorder, unspecified type F41.9 [facility] [address] [id number] [address] [place] [address], [place] [address] Dec, Bipolar 1 disorder F31.9 and Attention deficit R41.840 [facility] [address] [id number] [address] [place] [address] 24 Oct, 2016 Other chronic pain G89.29 ; Alopecia L65.9 and Screening, lipid Z13.220 [facility] [address] [id number] [address] [place] [address] Oct, [facility] [address] [id number] [address] [place] [address] Aug, [facility] [address] [id number] [address] [place] [id number] Aug, Eustachian tube dysfunction, right H69.81 ; Vertigo R42 and Other chronic pain G89.29 [facility] [address] [id number] [address] [place] [address] Aug, [facility] [address] [id number] [address] [place] [address] Jun, [facility] [address] [id number] [address] [place] [phone] Jun, Low back pain M54.5 and Othe r chronic pain G89.29 [facility] [address] [id number] [address] [place] [address] Jun, [facility] [address] [id number] [address] [place] [id number] May, [facility] [address] [id number] [address] [place] [address] Jan, [facility] [address] [id number] [address] [place] [phone] Dec, [facility] [address] [facility] [id number] [address] [place] [id number] Dec, [facility] [address] [id number] [address] [place] [address] Jun, [facility] [address] [facility] [id number] [address] [place] [address] Apr, Eustachian tube dysfunction, unspecified laterality H69.80 ; Hot flashes N95.1 and Encounter for immunization Z23 [facility] [address] [facility] [id number] [address] [place] [address] Jan, [facility] [address] [facility] [id number] [address] [place] [phone] Jan, [facility] [address] [facility] [id number] [address] [place] [phone] Jan, [facility] [address] [facility] [id number] [address] [place] [address] Jan, [facility] [address] [place] [id number] [address] [place] [address] Jan, Encounter to establish care V65.8 ; Bipolar 1 disorder 296.7 ; Abdominal pain 789.00 ; Constipation 564.00 ; Hard of hearing 389.9 and Drug abuse 305.90 [facility] [address] [facility] [id number] [address] [place] [address] Dec, [facility] [address] [facility] [id number] [address] [place] [address] October, [facility] [address] [place] [id number] [address] [place] [address] October, [facility] [address] [facility] [id number] [address] [place] [address] Oct, [facility] [address] [facility] [id number] [address] [place] [address] Oct, [facility] [address] [facility] [id number] [address] [place] [address] Oct, [facility] [address] [facility] [id number] [address] [place] [address] Aug, [facility] [address] [facility] [id number] [address] [place] [phone] Aug, [facility] [address] [id number] [address] [place] [address], [place] [address] Aug, [facility] [address] [id number] [address] [place] [address], [place] [address] Aug, 2014 [facility] [address] [id number] [address] [place] [address], [place] [address] Aug, 2014 [facility] [address] [id number] [address] [place] [address], [place] [address] Aug, 2014 [facility] [address] [id number] [address] [place] [address], [place] [address] Aug, 2014 [facility] [address] [id number] [address] [place] [address], [place] [address] Aug, 2014 [facility] [address] [id number] [address] [place] [address], [place] [address] Aug, 2014 [facility] [address] [id number] [address] [place] [address], [place] [address] Aug, 2014 [facility] [address] [id number] [address] [place] [address], [place] [address] Aug, [facility] [address] [id number] [address] [place] [address] Aug, [facility] [address] [id number] [address] [place] [phone] Aug, [facility] [address] [id number] [address] [place] [address] Aug, 2014 [facility] [address] [id number] [address] [place] [address], [place] [address] Aug, [facility] [address] [id number] [address] [place] [address] Jul, [facility] [address] [id number] [address] [place] [phone] Jul, [facility] [address] [id number] [address] [place] [phone] Jul, [facility] [address] [id number] [address] [place] [address], [place] [address] Jul, [facility] [address] [id number] [address] [place] [address], [place] [address] Jul, [facility] [address] [id number] [address] [place] [address], [place] [address] Jul, [facility] [address] [id number] [address] [place] [address], [place] [address] Jul, [facility] [address] [id number] [address] [place] [address], [place] [address] Jul, [facility] [address] [id number] [address] [place] [address], [place] [address] Jun, [facility] [address] [id number] [address] [place] [address], [place] [address] Jun, [facility] [address] [id number] [address] [place] [address], [place] [address] Jun, [facility] [address] [id number] [address] [place] [address], [place] [address] Jun, [facility] [address] [id number] [address] [place] [address], [place] [address] Jun, [facility] [address] [id number] [address] [place] [address], [place] [address] Jun, [facility] [address] [id number] [address] [place] [address], [place] [address] Jun, [facility] [address] [id number] [address] [place] [address], [place] [address] Jun, [facility] [address] [id number] [address] [place] [address], [place] [address] Jun, [facility] [address] [id number] [address] [place] [address], [place] [address] Jun, [facility] [address] [id number] [address] [place] [address], [place] [address] Jun, [facility] [address] [id number] [address] [place] [address], [place] [address] May, [facility] [address] [id number] [address] [place] [address], [place] [address] May, [facility] [address] [id number] [address] [place] [address], [place] [address] May, [facility] [address] [id number] [address] [place] [address], [place] [address] May, [facility] [address] [id number] [address] [place] [address], [place] [address] May, [facility] [address] [id number] [address] [place] [address], [place] [address] May, [facility] [address] [id number] [address] [place] [address], [place] [address] May, [facility] [address] [id number] [address] [place] [address], [place] [address] Apr, [facility] [address] [id number] [address] [place] [address], [place] [address] Apr, [facility] [address] [id number] [address] [place] [address], [place] [address] Apr, [facility] [address] [id number] [address] [place] [address], [place] [address] Apr, [facility] [address] [id number] [address] [place] [address], [place] [address] Apr, [facility] [address] [id number] [address] [place] [address], [place] [address] Apr, [facility] [address] [id number] [address] [place] [address], [place] [address] Mar, [facility] [address] [id number] [address] [place] [address], [place] [address] Mar, [facility] [address] [id number] [facility] [place] [address] Mar, [facility] [address] [id number] [address] [place] [address], [place] [address] Mar, [facility] [address] [id number] [address] [place] [address], [place] [address] Mar, [facility] [address] [id number] [address] [place] [address], [place] [address] Mar, [facility] [address] [id number] [address] [place] [address], [place] [address] Jan, [facility] [address] [id number] [address] [place] [address], [place] [address] Jan, [facility] [address] [id number] [address] [place] [address], [place] [address] Jan, [facility] [address] [id number] [address] [place] [address], [place] [address] Jan, [facility] [address] [id number] [address] [place] [address], [place] [address] Dec, [facility] [address] [id number] [address] [place] [address], [place] [address] Dec, [facility] [address] [id number] [address] [place] [address], [place] [address] Dec, [facility] [address] [id number] [address] [place] [address], [place] [address] Dec, [facility] [address] [id number] [address] [place] [address], [place] [address] Dec, [facility] [address] [id number] [address] [place] [address], [place] [address] Dec, [facility] [address] [id number] [address] [place] [address], [place] [address] Dec, [facility] [address] [id number] [address] [place] [address], [place] [address] Dec, [facility] [address] [id number] [address] [place] [address], [place] [address] Dec, [facility] [address] [id number] [address] [place] [address], [place] [address] Dec, [facility] [address] [id number] [address] [place] [address], [place] [address] Dec, [facility] [address] [id number] [address] [place] [address], [place] [address] Dec, [facility] [address] [id number] [address] [place] [address], [place] [address] October, [facility] [address] [id number] [address] [place] [address], [place] [address] October, [facility] [address] [id number] [address] [place] [address], [place] [address] October, [facility] [address] [id number] [address] [place] [address], [place] [address] October, [facility] [address] [id number] [address] [place] [address], [place] [address] October, [facility] [address] [id number] [address] [place] [address], [place] [address] October, [facility] [address] [id number] [address] [place] [address], [place] [address] Oct, [facility] [address] [id number] [address] [place] [address], [place] [address] Oct, [facility] [address] [id number] [address] [place] [address], [place] [address] Oct, [facility] [address] [id number] [address] [place] [address], [place] [address] Oct, [facility] [address] [id number] [address] [place] [address], [place] [address] Oct, [facility] [address] [id number] [facility] [place] [address] Oct, [facility] [address] [id number] [facility] [place] [address] Oct, [facility] [address] [id number] [facility] [place] [address] Oct, [facility] [address] [id number] [address] [place] [address], [place] [address] Oct, [facility] [address] [id number] [address] [place] [address], [place] [address] Oct, [facility] [address] [id number] [address] [place] [address], [place] [address] Oct, [facility] [address] [id number] [address] [place] [address], [place] [address] Oct, [facility] [address] [id number] [address] [place] [address], [place] [address] Aug, [facility] [address] [id number] [address] [place] [address], [place] [address] Aug, [facility] [address] [id number] [address] [place] [address], [place] [address] Aug, [facility] [address] [id number] [address] [place] [address], [place] [address] Aug, [facility] [address] [id number] [address] [place] [address], [place] [address] 05 Aug, 2013 [facility] [address] [id number] [address] [place] [address], [place] [address] 05 Aug, 2013 [facility] [address] [id number] [address] [place] [address], [place] [address] 04 Aug, 2013 [facility] [address] [id number] [address] [place] [address], [place] [address] 03 Aug, 2013 [facility] [address] [id number] [address] [place] [address], [place] [address] Aug, [facility] [address] [id number] [address] [place] [address], [place] [address] 24 Aug, 2013 [facility] [address] [id number] [address] [place] [address], [place] [address] 24 Aug, 2013 [facility] [address] [id number] [address] [place] [address], [place] [address] Aug, 2013 [facility] [address] [id number] [address] [place] [address], [place] [address] Aug, 2013 [facility] [address] [id number] [address] [place] [address], [place] [address] 20 Aug, 2013 [facility] [address] [id number] [address] [place] [address], [place] [address] 14 Aug, 2013 [facility] [address] [id number] [address] [place] [address], [place] [address] 14 Aug, 2013 [facility] [address] [id number] [address] [place] [address], [place] [address] 14 Aug, 2013 [facility] [address] [id number] [address] [place] [address], [place] [address] 14 Aug, 2013 [facility] [address] [id number] [address] [place] [address], [place] [address] 07 Aug, 2013 [facility] [address] [id number] [address] [place] [address], [place] [address] 07 Aug, 2013 [facility] [address] [id number] [address] [place] [address], [place] [address] 06 Aug, 2013 [facility] [address] [id number] [address] [place] [address], [place] [address] 06 Aug, 2013 [facility] [address] [id number] [address] [place] [address], [place] [address] 04 Aug, 2013 [facility] [address] [id number] [address] [place] [address], [place] [address] Aug, [facility] [address] [id number] [address] [place] [address], [place] [address] Aug, [facility] [address] [id number] [address] [place] [address], [place] [address] Jul, [facility] [address] [id number] [address] [place] [address], [place] [address] Jul, [facility] [address] [id number] [address] [place] [address], [place] [address] Jul, [facility] [address] [id number] [address] [place] [address], [place] [address] Jul, [facility] [address] [id number] [address] [place] [address], [place] [address] Jul, [facility] [address] [id number] [address] [place] [address], [place] [address] Jul, [facility] [address] [id number] [address] [place] [address], [place] [address] Jul, [facility] [address] [id number] [address] [place] [address], [place] [address] Jul, [facility] [address] [id number] [address] [place] [address], [place] [address] Jul, [facility] [address] [id number] [address] [place] [address], [place] [address] Jul, [facility] [address] [id number] [address] [place] [address], [place] [address] Jul, [facility] [address] [id number] [address] [place] [address], [place] [address] Jul, [facility] [address] [id number] [address] [place] [address], [place] [address] Jul, [facility] [address] [id number] [address] [place] [address], [place] [address] Jul, [facility] [address] [id number] [address] [place] [address], [place] [address] 07 Jul, 2013 [facility] [address] [id number] [address] [place] [address], [place] [address] 07 Jul, 2013 [facility] [address] [id number] [address] [place] [address], [place] [address] Jul, [facility] [address] [id number] [address] [place] [address], [place] [address] Jul, [facility] [address] [id number] [address] [place] [address], [place] [address] Jul, [facility] [address] [id number] [address] [place] [address], [place] [address] Jul, [facility] [address] [id number] [address] [place] [address], [place] [address] Jun, [facility] [address] [id number] [address] [place] [address], [place] [address] 31 Jun, 2013 [facility] [address] [id number] [address] [place] [address], [place] [address] 30 Jun, 2013 [facility] [address] [id number] [address] [place] [address], [place] [address] Jun, [facility] [address] [id number] [address] [place] [address], [place] [address] Jun, [facility] [address] [id number] [address] [place] [address], [place] [address] Jun, [facility] [address] [id number] [address] [place] [address], [place] [address] Jun, [facility] [address] [id number] [address] [place] [address], [place] [address] Jun, [facility] [address] [id number] [address] [place] [address], [place] [address] 24 Jun, 2013 [facility] [address] [id number] [address] [place] [address], [place] [address] Jun, [facility] [address] [id number] [address] [place] [address], [place] [address] Jun, [facility] [address] [id number] [address] [place] [address], [place] [address] Jun, [facility] [address] [id number] [address] [place] [address], [place] [address] Jun, [facility] [address] [id number] [address] [place] [address], [place] [address] Jun, [facility] [address] [id number] [address] [place] [address], [place] [address] Jun, [facility] [address] [id number] [address] [place] [address], [place] [address] Jun, [facility] [address] [id number] [address] [place] [address], [place] [address] Jun, [facility] [address] [id number] [address] [place] [address], [place] [address] Jun, [facility] [address] [id number] [address] [place] [address], [place] [address] 17 Jun, 2013 [facility] [address] [id number] [address] [place] [address], [place] [address] Jun, [facility] [address] [id number] [address] [place] [address], [place] [address] Jun, [facility] [address] [id number] [address] [place] [address], [place] [address] Jun, [facility] [address] [id number] [address] [place] [address], [place] [address] 09 Jun, 2013 [facility] [address] [id number] [address] [place] [address], [place] [address] 05 Jun, 2013 [facility] [address] [id number] [address] [place] [address], [place] [address] 05 Jun, 2013 [facility] [address] [id number] [address] [place] [address], [place] [address] Jun, [facility] [address] [id number] [address] [place] [address], [place] [address] Jun, [facility] [address] [id number] [address] [place] [address], [place] [address] May, [facility] [address] [id number] [address] [place] [address], [place] [address] May, [facility] [address] [id number] [address] [place] [address] May, [facility] [address] [id number] [address] [place] [address], [place] [address] May, [facility] [address] [id number] [address] [place] [address] May, [facility] [address] [id number] [address] [place] [address], [place] [address] May, [facility] [address] [id number] [address] [place] [address] Apr, [facility] [address] [id number] [address] [place] [address], [place] [address] Apr, [facility] [address] [id number] [address] [place] [address] Apr, [facility] [address] [id number] [address] [place] [address] 30 Apr, 2013 [facility] [address] [id number] [address] [place] [address] Apr, [facility] [address] [id number] [address] [place] [address], [place] [address] Apr, [facility] [address] [id number] [address] [place] [address] Apr, [facility] [address] [id number] [address] [place] [address] Apr, [facility] [address] [id number] [address] [place] [address], [place] [address] 26 Mar, 2012 [facility] [address] [id number] [address] [place] [address], [place] [address] 24 Mar, 2012 [facility] [address] [id number] [address] [place] [address], [place] [address] 17 Mar, 2012 [facility] [address] [id number] [address] [place] [address], [place] [address] 17 Mar, 2012 [facility] [address] [id number] [address] [place] [address], [place] [address] 11 Mar, 2012 [facility] [address] [id number] [address] [place] [address], [place] [address] 10 Mar, 2012 [facility] [address] [id number] [address] [place] [address], [place] [address] 05 Mar, 2012 [facility] [address] [id number] [address] [place] [address], [place] [address] 04 Mar, 2012 [facility] [address] [id number] [address] [place] [address], [place] [address] 20 Jan, 2013 [facility] [address] [id number] [address] [place] [address], [place] [address] 19 Jan, 2013 [facility] [address] [id number] [address] [place] [address], [place] [address] 14 Jan, 2013 [facility] [address] [id number] [address] [place] [address], [place] [address] Jan, [facility] [address] [id number] [address] [place] [address], [place] [address] Jan, [facility] [address] [id number] [address] [place] [address], [place] [address] 05 Jan, 2013 [facility] [address] [id number] [address] [place] [address], [place] [address] Dec, [facility] [address] [id number] [address] [place] [address], [place] [address] Dec, [facility] [address] [id number] [address] [place] [address], [place] [address] 22 Dec, 2012 [facility] [address] [id number] [address] [place] [address], [place] [address] 19 Dec, 2012 [facility] [address] [id number] [address] [place] [address], [place] [address] 18 Dec, 2012 [facility] [address] [id number] [address] [place] [address], [place] [address] 17 Dec, 2012 [facility] [address] [id number] [address] [place] [address], [place] [address] 16 Dec, 2012 [facility] [address] [id number] [address] [place] [address], [place] [address] 16 Dec, 2012 [facility] [address] [id number] [address] [place] [address], [place] [address] 15 Dec, 2012 [facility] [address] [id number] [address] [place] [address], [place] [address] Dec, [facility] [address] [id number] [address] [place] [address], [place] [address] 28 Dec, 2012 [facility] [address] [id number] [address] [place] [address], [place] [address] Dec, [facility] [address] [id number] [address] [place] [address], [place] [address] Dec, [facility] [address] [id number] [address] [place] [address], [place] [address] 17 Dec, 2012 [facility] [address] [id number] [address] [place] [address], [place] [address] Dec, [facility] [address] [id number] [address] [place] [address], [place] [address] Dec, [facility] [address] [id number] [address] [place] [address], [place] [address] October, [facility] [address] [id number] [address] [place] [address], [place] [address] October, [facility] [address] [id number] [address] [place] [address], [place] [address] October, [facility] [address] [id number] [address] [place] [address], [place] [address] October, [facility] [address] [id number] [address] [place] [address], [place] [address] October, [facility] [address] [id number] [address] [place] [address], [place] [address] October, [facility] [address] [id number] [address] [place] [address], [place] [address] October, [facility] [address] [id number] [address] [place] [address], [place] [address] Oct, [facility] [address] [id number] [address] [place] [address], [place] [address] Oct, [facility] [address] [id number] [address] [place] [address], [place] [address] Oct, [facility] [address] [id number] [address] [place] [address], [place] [address] Oct, [facility] [address] [id number] [address] [place] [address], [place] [address] Oct, [facility] [address] [id number] [address] [place] [address], [place] [address] 18 Oct, 2012 [facility] [address] [id number] [address] [place] [address], [place] [address] 17 Oct, 2012 [facility] [address] [id number] [address] [place] [address], [place] [address] 15 Oct, 2012 [facility] [address] [id number] [address] [place] [address], [place] [address] 12 Oct, 2012 [facility] [address] [id number] [address] [place] [address], [place] [address] 09 Oct, 2012 [facility] [address] [id number] [address] [place] [address], [place] [address] Oct, [facility] [address] [id number] [address] [place] [address], [place] [address] Oct, [facility] [address] [id number] [address] [place] [address], [place] [address] Aug, [facility] [address] [id number] [address] [place] [address], [place] [address] Aug, [facility] [address] [id number] [address] [place] [address], [place] [address] Aug, [facility] [address] [id number] [address] [place] [address], [place] [address] Aug, [facility] [address] [id number] [address] [place] [address], [place] [address] Aug, [facility] [address] [id number] [address] [place] [address], [place] [address] Aug, [facility] [address] [id number] [address] [place] [address], [place] [address] Aug, [facility] [address] [id number] [address] [place] [address], [place] [address] 14 Aug, 2012 [facility] [address] [id number] [address] [place] [address], [place] [address] Aug, [facility] [address] [id number] [address] [place] [address], [place] [address] Aug, [facility] [address] [id number] [address] [place] [address], [place] [address] Jul, [facility] [address] [id number] [address] [place] [address], [place] [address] Jul, [facility] [address] [id number] [address] [place] [address], [place] [address] 08 Jul, 2012 [facility] [address] [id number] [address] [place] [address], [place] [address] 20 Jun, 2012 [facility] [address] [id number] [address] [place] [address], [place] [address] 18 Jun, 2012 [facility] [address] [id number] [address] [place] [address], [place] [address] 18 Jun, 2012 [facility] [address] [id number] [address] [place] [address], [place] [address] 18 Jun, 2012 [facility] [address] [id number] [address] [place] [address], [place] [address] 18 Jun, 2012 [facility] [address] [id number] [address] [place] [address], [place] [address] 14 Jun, 2012 [facility] [address] [id number] [address] [place] [address], [place] [address] 14 Jun, 2012 [facility] [address] [id number] [address] [place] [address], [place] [address] 13 Jun, 2012 [facility] [address] [id number] [address] [place] [address], [place] [address] 13 Jun, 2012 [facility] [address] [id number] [address] [place] [address], [place] [address] 11 Jun, 2012 [facility] [address] [id number] [address] [place] [address], [place] [address] 11 Jun, 2012 [facility] [address] [id number] [address] [place] [address], [place] [address] 11 Jun, 2012 [facility] [address] [id number] [address] [place] [address], [place] [address] 11 Jun, 2012 [facility] [address] [id number] [address] [place] [address], [place] [address] 07 Jun, 2012 [facility] [address] [id number] [address] [place] [address], [place] [address] 07 Jun, 2012 [facility] [address] [id number] [address] [place] [address], [place] [address] 06 Jun, 2012 [facility] [address] [id number] [address] [place] [address], [place] [address] Jun, [facility] [address] [id number] [address] [place] [address], [place] [address] Jun, [facility] [address] [id number] [address] [place] [address], [place] [address] Jun, [facility] [address] [id number] [address] [place] [address], [place] [address] Jun, [facility] [address] [id number] [address] [place] [address], [place] [id number] Jun, [facility] [address] [id number] [address] [place] [address], [place] [address] Jun, [facility] [address] [id number] [address] [place] [address], [place] [address] Jun, [facility] [address] [id number] [address] [place] [address], [place] [address] May, [facility] [address] [id number] [address] [place] [address], [place] [address] May, [facility] [address] [id number] [address] [place] [address], [place] [address] May, [facility] [address] [id number] [address] [place] [address], [place] [address] May, [facility] [address] [id number] [address] [place] [address], [place] [address] May, [facility] [address] [id number] [address] [place] [address], [place] [address] May, [facility] [address] [id number] [address] [place] [address], [place] [address] May, [facility] [address] [id number] [address] [place] [address], [place] [address] May, [facility] [address] [id number] [address] [place] [address], [place] [address] Apr, [facility] [address] [id number] [address] [place] [address], [place] [address] 30 Apr, 2012 [facility] [address] [id number] [address] [place] [id number] 29 Apr, 2012 [facility] [address] [id number] [address] [place] [id number] 16 Apr, 2012 [facility] [address] [id number] [address] [place] [address], [place] [address] 16 Apr, 2012 [facility] [address] [id number] [address] [place] [address], [place] [address] Apr, [facility] [address] [id number] [address] [place] [address], [place] [address] Apr, [facility] [address] [id number] [address] [place] [id number] Apr, [facility] [address] [id number] [address] [place] [id number] Apr, [facility] [address] [id number] [address] [place] [id number] 08 Apr, 2012 [facility] [address] [id number] [address] [place] [id number] 04 Apr, 2012 [facility] [address] [id number] [address] [place] [id number] 02 Apr, 2012 [facility] [address] [id number] [address] [place] [id number] 19 Mar, 2011 [facility] [address] [id number] [address] [place] [id number] 18 Sep2011 [facility] [address] [id number] [address] [place] [id number] 12 Mar, 2012 [facility] [address] [id number] [address] [place] [id number] 12 Mar, 2011 [facility] [address] [id number] [address] [place] [id number] Mar, [facility] [address] [id number] [address] [place] [address], [place] [id number] Mar, [facility] [address] [id number] [address] [place] [address], [place] [address] Mar, [facility] [address] [id number] [address] [place] [address], [place] [address] Jan, [facility] [address] [id number] [address] [place] [address], [place] [address] Jan, [facility] [address] [id number] [address] [place] [address], [place] [id number] Jan, [facility] [address] [id number] [address] [place] [id number] Jan, [facility] [address] [id number] [address] [place] [address], [place] [address] Jan, [facility] [address] [id number] [address] [place] [address], [place] [address] Jan, [facility] [address] [id number] [address] [place] [address], [place] [id number] Jan, [facility] [facility] [address] [id number] [address] [place] [address], [place] [address] Jan, [facility] [address] [id number] [address] [place] [address], [place] [address] Jan, [facility] [address] [id number] [address] [place] [address], [place] [address] Jan, [facility] [address] [id number] [address] [place] [address], [place] [address] Jan, [facility] [address] [id number] [address] [place] [address], [place] [address] Dec, [facility] [address] [id number] [address] [place] [address], [place] [address] Dec, [facility] [address] [id number] [address] [place] [address], [place] [address] 26 Dec, 2011 [facility] [address] [id number] [address] [place] [address], [place] [id number] 26 Dec, 2011 [facility] [address] [id number] [address] [place] [address], [place] [address] 20 Dec, 2011 [facility] [address] [id number] [address] [place] [address], [place] [address] 19 Dec, 2011 [facility] [address] [id number] [address] [place] [address], [place] [address] 18 Jan, 2012 [facility] [address] [id number] [address] [place] [address], [place] [id number] 17 Jan, 2012 [facility] [address] [id number] [address] [place] [address], [place] [id number] 16 Jan, 2012 [facility] [address] [id number] [address] [place] [address], [place] [address] 13 Jan, 2012 [facility] [address] [id number] [address] [place] [address], [place] [address] 13 Jan, 2012 [facility] [address] [id number] [address] [place] [address], [place] [address] 02 Jan, 2012 [facility] [address] [id number] [address] [place] [address], [place] [address] 27 Dec, 2011 [facility] [address] [id number] [address] [place] [address], [place] [address] 27 Dec, 2011 [facility] [address] [id number] [address] [place] [address], [place] [address] 25 Dec, 2011 [facility] [address] [id number] [address] [place] [address], [place] [id number] 18 Dec, 2011 [facility] [address] [id number] [address] [place] [address], [place] [address] 15 Dec, 2011 [facility] [address] [id number] [address] [place] [address], [place] [address] Dec, [facility] [address] [id number] [address] [place] [address], [place] [address] Dec, [facility] [address] [id number] [address] [place] [address], [place] [address] October, [facility] [address] [id number] [address] [place] [address], [place] [address] October, [facility] [address] [id number] [address] [place] [address], [place] [address] October, [facility] [address] [id number] [address] [place] [address], [place] [address] October, [facility] [address] [id number] [address] [place] [address], [place] [address] October, [facility] [address] [id number] [address] [place] [address], [place] [address] October, [facility] [address] [id number] [address] [place] [address], [place] [address] Oct, [facility] [address] [id number] [address] [place] [address], [place] [address] Oct, [facility] [address] [id number] [address] [place] [address], [place] [address] Oct, [facility] [address] [id number] [address] [place] [address], [place] [address] Oct, [facility] [address] [id number] [address] [place] [address], [place] [address] Oct, [facility] [address] [id number] [address] [place] [address], [place] [address] Oct, [facility] [address] [id number] [address] [place] [address], [place] [address] Oct, [facility] [address] [id number] [address] [place] [address], [place] [address] Aug, [facility] [address] [id number] [address] [place] [address], [place] [address] 29 Sep, 2011 [facility] [address] [id number] [address] [place] [address], [place] [address] Aug, [facility] [address] [id number] [address] [place] [address], [place] [address] 13 Sep, 2011 [facility] [address] [id number] [address] [place] [address], [place] [address] 05 Sep, 2011 [facility] [address] [id number] [address] [place] [address], [place] [address] 05 Sep, 2011 [facility] [address] [id number] [address] [place] [address], [place] [address] 27 Aug, 2011 [facility] [address] [id number] [address] [place] [address], [place] [address] Aug, [facility] [address] [id number] [address] [place] [address], [place] [address] 08 Aug, 2011 [facility] [address] [id number] [address] [place] [address], [place] [address] Jul, [facility] [address] [id number] [address] [place] [address], [place] [address] Jul, [facility] [address] [id number] [address] [place] [address], [place] [address] Jul, [facility] [address] [id number] [address] [place] [address], [place] [address] Jul, [facility] [address] [id number] [address] [place] [address], [place] [address] Jun, [facility] [address] [id number] [address] [place] [address], [place] [address] Jun, [facility] [address] [id number] [address] [place] [address], [place] [address] May, [facility] [address] [id number] [address] [place] [address], [place] [address] May, [facility] [address] [id number] [address] [place] [id number] May, [facility] [address] [id number] [address] [place] [id number] May, [facility] [address] [id number] [address] [place] [id number] May, [facility] [address] [id number] [address] [place] [id number] Apr, [facility] [address] [id number] [address] [place] [id number] Apr, [facility] [address] [id number] [address] [place] [phone] Apr, [facility] [address] [id number] [address] [place] [id number] Jan, [facility] [address] [id number] [address] [place] [id number] Dec, [facility] [address] [id number] [address] [place] [id number] October, [facility] [address] [id number] [address] [place] [id number] Jun, [facility] [address] [id number] [address] [place] [id number] Apr, [facility] [address] [id number] [address] [place] [id number] Apr, [facility] [address] [id number] [address] [place] [id number] Apr, [facility] [address] [id number] [address] [place] [id number] Jun, IMMUNIZATIONS No Known Immunizations SOCIAL HISTORY Never Assessed REASON FOR VISIT valium taper PLAN OF CARE VITAL SIGNS MEDICATIONS Medication Instructions Dosage Frequency Start Date End Date Duration S tatus Valium 5 mg Orally Once a day for two we eks, then 1/2 tablet a day for two weeks, then stop. tapering out. 1 tablet Jun, Jun, 28 days Active RESULTS No Results PROCEDURES No Known procedures INSTRUCTIONS MEDICATIONS ADMINISTERED No Known Medications MEDICAL (GENERAL) HISTORY Type Description Date Medical History Psychiatric disorder Medical History Hard of hearing Surgical History Neofibrous tumor Surgical History back injection Hospitalization History Intestinal blockage Hospitalization History past psychiatric hospitalizations x2
--- OUTSIDE RECORDS SUMMARY | 2020-01-25 13:06 | XMS REPORT ---
Author Author Ana Mayer Doctor Organization [facility] Address Unknown Phone Unavailable Care Team Providers Care [employer] Name Role Phone Migration, Doctor Unavailable Unavailable PROBLEMS Type Condition ICD9-CM Code HFA43-LU Code Onset Dates Condition S tatus SNOMED Code Problem Attention deficit R41.840 Active 76 129594 Problem Chronic hepatitis C without hepatic coma B18.2 Active 232423632 Problem Cannabis abuse F12.10 Active 43204 009 Problem Bipolar disorder, in partial remission, most rec ent episode hypomanic F31.71 Active 345178425 Problem Attention deficit hyperactivity disorder (ADHD), combi luciano type F90.2 Active 32096057 Problem Bipolar 1 disorder F31.9 Active 3 24844375 Problem H/O laminectomy Z98.89 Active 1616 05334 Problem Other chronic pain G89.29 Active 8 7505336 Problem Anxiety disorder, unspecified type F41.9 Active [id number] ALLERGIES No Information ENCOUNTERS Encounter Location Date Diagnosis [facility] [address] [facility] [id number] [address] [place] [phone] Oct, [facility] [address] [facility] [id number] [address] [place] [phone] Aug, Bipolar disorder, in partial remission, most recent episode hypomanic F31.71 ; Attention deficit hyperactivity disorder (ADHD), combined type F90.2 and Anxiety disorder, unspecified type F41.9 [facility] [address] [facility] [id number] [address] [place] [phone] Aug, [facility] [address] [facility] [id number] [address] [place] [phone] Aug, Bipolar disorder, in partial remission, most recent episode hypomanic F31.71 [facility] [address] [facility] [id number] [address] [place] [phone] Aug, [facility] [address] [id number] [address] [place] [phone] Aug, Bipolar disorder, in partial remission, most recent episode hypomanic F31.71 [facility] [address] [id number] [address] [place] [id number] Aug, Bipolar disorder, in partial remission, most recent episode hypomanic F31.71 ; Attention deficit hyperactivity disorder (ADHD), combined type F90.2 and Anxiety disorder, unspecified type F41.9 [facility] [address] [id number] [address] [place] [phone] Aug, Low back pain M54.5 and Pain in left wrist M25.532 [facility] [address] [id number] [address] [place] [phone] Aug, [facility] [address] [id number] [address] [place] [phone] Jun, [facility] [address] [facility] [id number] [address] [place] [phone] Apr, Bipolar disorder, in partial remission, most recent episode hypomanic F31.71 [facility] [address] [id number] [address] [place] [id number] Apr, [facility] [address] [id number] [address] [place] [phone] Apr, Bipolar disorder, in partial remission, most recent episode hypomanic F31.71 ; Attention deficit hyperactivity disorder (ADHD), combined type F90.2 ; Anxiety disorder, unspecified type F41.9 and Other detention (current) drug therapy Z79.899 [facility] [address] [id number] [address] [place] [id number] Apr, Bipolar disorder, in partial remission, most recent episode hypomanic F31.71 [facility] [address] [id number] [address] [place] [phone] Apr, Bipolar disorder, in partial remission, most recent episode hypomanic F31.71 [facility] [address] [facility] [id number] [address] [place] [phone] Mar, [facility] [address] [id number] [address] [place] [id number] Mar, Bipolar disorder, in partial remission, most recent episode hypomanic F31.71 ; Encounter for immunization Z23 and Low back pain M54.5 [facility] [address] [id number] [address] [place] [phone] Mar, Bipolar disorder, in partial remission, most recent episode hypomanic F31.71 [facility] [address] [id number] [address] [place] [phone] Mar, Bipolar disorder, in partial remission, most recent episode hypomanic F31.71 [facility] [address] [facility] [id number] [address] [place] [phone] Jan, Bipolar disorder, in partial remission, most recent episode hypomanic F31.71 [facility] [address] [facility] [id number] [address] [place] [phone] Jan, Bipolar disorder, in partial remission, most recent episode hypomanic F31.71 [facility] [address] [facility] [id number] [address] [place] [phone] Dec, Bipolar disorder, in partial remission, most recent episode hypomanic F31.71 [facility] [address] [facility] [id number] [address] [place] [phone] Dec, Bipolar disorder, in partial remission, most recent episode hypomanic F31.71 ; Attention deficit hyperactivity disorder (ADHD), combined type F90.2 ; Anxiety disorder, unspecified type F41.9 and Other detention (current) drug therapy Z79.899 [facility] [address] [facility] [id number] [address] [place] [phone] Dec, Bipolar disorder, in partial remission, most recent episode hypomanic F31.71 [facility] [address] [facility] [id number] [address] [place] [phone] Dec, Bipolar disorder, in partial remission, most recent episode hypomanic F31.71 [facility] [address] [id number] [address] [place] [address] October, Bipolar disorder, in partial remission, most recent episode hypomanic F31.71 [facility] [address] [id number] [address] [place] [phone] October, [facility] [address] [id number] [address] [place] [phone] October, [facility] [address] [id number] [address] [place] [phone] Oct, Bipolar disorder, in partial remission, most recent episode hypomanic F31.71 ; Attention deficit hyperactivity disorder (ADHD), combined type F90.2 ; Anxiety disorder, unspecified type F41.9 and Encounter for drug screening Z02.83 [facility] [address] [id number] [address] [place] [phone] Oct, Bipolar disorder, in partial remission, most recent episode hypomanic F31.71 [facility] [address] [id number] [address] [place] [phone] Oct, Bipolar disorder, in partial remission, most recent episode hypomanic F31.71 [facility] [address] [id number] [address] [place] [phone] Aug, Bipolar disorder, in partial remission, most recent episode hypomanic F31.71 [facility] [address] [id number] [address] [place] [phone] Aug, Bipolar disorder, in partial remission, most recent episode hypomanic F31.71 [facility] [address] [id number] [address] [place] [phone] Aug, Bipolar disorder, in partial remission, most recent episode hypomanic F31.71 [facility] [address] [id number] [address] [place] [phone] Jul, Bipolar disorder, in partial remission, most recent episode hypomanic F31.71 ; Attention deficit hyperactivity disorder (ADHD), combined type F90.2 and Anxiety disorder, unspecified type F41.9 [facility] [address] [id number] [address] [place] [phone] Jul, Bipolar disorder, in partial remission, most recent episode hypomanic F31.71 [facility] [address] [id number] [address] [place] [phone] Jun, Bipolar disorder, in partial remission, most recent episode hypomanic F31.71 [facility] [address] [id number] [address] [place] [phone] May, Bipolar disorder, in partial remission, most recent episode hypomanic F31.71 [facility] [address] [facility] [id number] [address] [place] [phone] May, Bipolar disorder, in partial remission, most recent episode hypomanic F31.71 [facility] [address] [facility] [id number] [address] [place] [phone] Apr, [facility] [address] [id number] [address] [place] [phone] Apr, Bipolar disorder, in partial remission, most recent episode hypomanic F31.71 ; Attention deficit hyperactivity disorder (ADHD), combined type F90.2 ; Anxiety disorder, unspecified type F41.9 and Cannabis abuse F12.10 [facility] [address] [id number] [address] [place] [id number] Apr, Attention deficit hyperactiv ity disorder (ADHD), combined type F90.2 [facility] [address] [id number] [address] [place] [phone] Mar, Attention deficit hyperactiv ity disorder (ADHD), combined type F90.2 [facility] [address] [facility] [id number] [address] [place] [phone] Mar, Anxiety disorder, unspecifie d type F41.9 [facility] [address] [facility] [id number] [address] [place] [phone] Jan, Attention deficit hyperactiv ity disorder (ADHD), combined type F90.2 [facility] [address] [facility] [id number] [address] [place] [address] Jan, Anxiety disorder, unspecifie d type F41.9 [facility] [address] [facility] [id number] [address] [place] [id number] Jan, Other chronic pain G89.29 ; Chronic hepatitis C without hepatic coma B18.2 and Bipolar 1 disorder F31.9 [facility] [address] [facility] [id number] [address] [place] [phone] Dec, Attention deficit hyperactiv ity disorder (ADHD), combined type F90.2 [facility] [address] [facility] [id number] [address] [place] [phone] Dec, Bipolar disorder, in partial remission, most recent episode hypomanic F31.71 ; Attention deficit hyperactivity disorder (ADHD), combined type F90.2 and Anxiety disorder, unspecified type F41.9 [facility] [address] [facility] [id number] [address] [place] [phone] Dec, Bipolar disorder, in partial remission, most recent episode hypomanic F31.71 ; Attention deficit hyperactivity disorder (ADHD), combined type F90.2 and Anxiety disorder, unspecified type F41.9 [facility] [address] [facility] [id number] [address] [place] [phone] Dec, Bipolar 1 disorder F31.9 and Attention deficit R41.840 [facility] [address] [facility] [id number] [address] [place] [phone] Oct, Other chronic pain G89.29 ; Alopecia L65.9 and Screening, lipid Z13.220 [facility] [address] [facility] [id number] [address] [place] [phone] Oct, [place] [address] [facility] [id number] [address] [place] [phone] Aug, [facility] [address] [facility] [id number] [address] [place] [id number] Aug, Eustachian tube dysfunction, right H69.81 ; Vertigo R42 and Other chronic pain G89.29 [facility] [address] [id number] [address] [place] [phone] Aug, [facility] [address] [id number] [address] [place] [phone] Jun, [facility] [address] [id number] [address] [place] [phone] Jun, Low back pain M54.5 and Othe r chronic pain G89.29 [facility] [address] [id number] [address] [place] [phone] Jun, [facility] [address] [id number] [address] [place] [phone] May, [facility] [address] [id number] [address] [place] [phone] Jan, [facility] [address] [id number] [address] [place] [phone] Dec, [facility] [address] [id number] [address] [place] [phone] Dec, [facility] [address] [id number] [address] [place] [phone] Jun, [facility] [address] [id number] [address] [place] [phone] Apr, Eustachian tube dysfunction, unspecified laterality H69.80 ; Hot flashes N95.1 and Encounter for immunization Z23 [facility] [address] [id number] [address] [place] [phone] Jan, [facility] [address] [id number] [address] [place] [phone] Jan, [facility] [address] [id number] [address] [place] [phone] Jan, [facility] [address] [id number] [address] [place] [phone] Jan, [facility] [address] [id number] [address] [place] [phone] Jan, Encounter to establish care V65.8 ; Bipolar 1 disorder 296.7 ; Abdominal pain 789.00 ; Constipation 564.00 ; Hard of hearing 389.9 and Drug abuse 305.90 [facility] [address] [id number] [address] [place] [phone] Dec, [facility] [address] [id number] [address] [place] [phone] October, [facility] [address] [id number] [address] [place] [phone] October, [facility] [address] [id number] [address] [place] [phone] Oct, [facility] [address] [id number] [address] [place] [phone] Oct, [facility] [address] [id number] [address] [place] [phone] Oct, [facility] [address] [id number] [address] [place] [phone] Aug, [facility] [address] [id number] [address] [place] [phone] Aug, [facility] [address] [id number] [address] [place] [phone] Aug, [facility] [address] [id number] [address] [place] [phone] Aug, [facility] [address] [id number] [address] [place] [phone] Aug, [facility] [address] [id number] [address] [place] [phone] Aug, [facility] [address] [id number] [address] [place] [address], [place] [address] Aug, 2014 [facility] [address] [id number] [address] [place] [address], [place] [address] Aug, 2014 [facility] [address] [id number] [address] [place] [address], [place] [address] Aug, 2014 [facility] [address] [id number] [address] [place] [address], [place] [address] Aug, 2014 [facility] [address] [id number] [address] [place] [address], [place] [address] Aug, 2014 [facility] [address] [id number] [address] [place] [address], [place] [address] Aug, 2014 [facility] [address] [id number] [address] [place] [address], [place] [address] Aug, 2014 [facility] [address] [id number] [address] [place] [address], [place] [address] Aug, 2014 [facility] [address] [id number] [address] [place] [address], [place] [address] Aug, [facility] [address] [id number] [address] [place] [address], [place] [address] Jul, [facility] [address] [id number] [address] [place] [address], [place] [address] Jul, [facility] [address] [id number] [address] [place] [address], [place] [address] Jul, [facility] [address] [id number] [address] [place] [address], [place] [address] Jul, [facility] [address] [id number] [address] [place] [address], [place] [address] Jul, [facility] [address] [id number] [address] [place] [address], [place] [address] Jul, [facility] [address] [id number] [address] [place] [address], [place] [address] Jul, [facility] [address] [id number] [address] [place] [address], [place] [address] Jul, [facility] [address] [id number] [address] [place] [address], [place] [address] Jun, [facility] [address] [id number] [address] [place] [address], [place] [address] Jun, [facility] [address] [id number] [address] [place] [address], [place] [address] Jun, [facility] [address] [id number] [address] [place] [address], [place] [address] Jun, [facility] [address] [id number] [address] [place] [address], [place] [address] Jun, [facility] [address] [id number] [address] [place] [address], [place] [address] Jun, [facility] [address] [id number] [address] [place] [address], [place] [address] Jun, [facility] [address] [id number] [address] [place] [address], [place] [address] Jun, [facility] [address] [id number] [address] [place] [address], [place] [address] Jun, [facility] [address] [id number] [address] [place] [address], [place] [address] Jun, [facility] [address] [id number] [address] [place] [address], [place] [address] Jun, [facility] [address] [id number] [address] [place] [address], [place] [address] May, [facility] [address] [id number] [address] [place] [address], [place] [address] May, [facility] [address] [id number] [address] [place] [address], [place] [address] May, [facility] [address] [id number] [address] [place] [address], [place] [address] May, [facility] [address] [id number] [address] [place] [address], [place] [address] May, [facility] [address] [id number] [address] [place] [address], [place] [address] May, [facility] [address] [id number] [address] [place] [address], [place] [address] May, [facility] [address] [id number] [address] [place] [address], [place] [address] Apr, [facility] [address] [id number] [address] [place] [address], [place] [address] Apr, [facility] [address] [id number] [address] [place] [address], [place] [address] Apr, [facility] [address] [id number] [address] [place] [address], [place] [address] Apr, [facility] [address] [id number] [address] [place] [address], [place] [address] Apr, [facility] [address] [id number] [address] [place] [address], [place] [address] Apr, [facility] [address] [id number] [address] [place] [address], [place] [address] Mar, [facility] [address] [id number] [address] [place] [address], [place] [address] 29 Mar, 2013 [facility] [address] [id number] [address] [place] [address], [place] [address] 10 Mar, 2013 [facility] [address] [id number] [address] [place] [address], [place] [address] 10 Mar, 2013 [facility] [address] [id number] [address] [place] [address], [place] [address] Mar, 2013 [facility] [address] [id number] [address] [place] [address], [place] [address] Mar, [facility] [address] [id number] [address] [place] [address], [place] [address] Jan, [facility] [address] [id number] [address] [place] [address], [place] [address] Jan, [facility] [address] [id number] [address] [place] [address], [place] [address] Jan, [facility] [address] [id number] [address] [place] [address], [place] [address] Jan, [facility] [address] [id number] [address] [place] [address], [place] [address] Dec, [facility] [address] [id number] [address] [place] [address], [place] [address] Dec, [facility] [address] [id number] [address] [place] [address], [place] [address] Dec, [facility] [address] [id number] [address] [place] [address], [place] [address] Dec, [facility] [address] [id number] [address] [place] [address], [place] [address] Dec, [facility] [address] [id number] [address] [place] [address], [place] [address] Dec, [facility] [address] [id number] [address] [place] [address], [place] [address] Dec, [facility] [address] [id number] [address] [place] [address], [place] [address] Dec, [facility] [address] [id number] [address] [place] [address], [place] [address] Dec, [facility] [address] [id number] [address] [place] [address], [place] [address] Dec, [facility] [address] [id number] [address] [place] [address], [place] [address] Dec, [facility] [address] [id number] [address] [place] [address], [place] [address] Dec, [facility] [address] [id number] [address] [place] [address], [place] [address] October, [facility] [address] [id number] [address] [place] [address], [place] [address] October, [facility] [address] [id number] [address] [place] [address], [place] [address] October, [facility] [address] [id number] [address] [place] [address], [place] [address] October, [facility] [address] [id number] [address] [place] [address], [place] [address] October, [facility] [address] [id number] [address] [place] [address], [place] [address] October, [facility] [address] [id number] [address] [place] [address], [place] [address] Oct, [facility] [address] [id number] [address] [place] [address], [place] [address] Oct, [facility] [facility] [address] [id number] [address] [place] [address], [place] [address] Oct, [facility] [address] [id number] [address] [place] [address], [place] [address] Oct, [facility] [address] [id number] [address] [place] [address], [place] [address] Oct, [facility] [address] [id number] [address] [place] [address], [place] [address] Oct, [facility] [address] [id number] [address] [place] [address], [place] [address] Oct, [facility] [address] [id number] [address] [place] [address], [place] [address] Oct, [facility] [address] [id number] [address] [place] [address], [place] [address] Oct, [facility] [address] [id number] [facility] [place] [address] 09 Oct, 2013 [facility] [address] [id number] [facility] [place] [address] Oct, [facility] [address] [id number] [address] [place] [address], [place] [address] Oct, [facility] [address] [id number] [address] [place] [address], [place] [address] Aug, [facility] [address] [id number] [address] [place] [address], [place] [address] Aug, [facility] [address] [id number] [address] [place] [address], [place] [address] Aug, [facility] [address] [id number] [address] [place] [address], [place] [address] Aug, [facility] [address] [id number] [address] [place] [address], [place] [address] Aug, [facility] [address] [id number] [address] [place] [address], [place] [address] 05 Aug, 2013 [facility] [address] [id number] [address] [place] [address], [place] [address] Aug, [facility] [address] [id number] [address] [place] [address], [place] [address] Aug, [facility] [address] [id number] [address] [place] [address], [place] [address] Aug, [facility] [address] [id number] [address] [place] [address], [place] [address] Aug, [facility] [address] [id number] [address] [place] [address], [place] [address] Aug, [facility] [address] [id number] [address] [place] [address], [place] [address] Aug, [facility] [address] [id number] [address] [place] [address], [place] [address] Aug, [facility] [address] [id number] [address] [place] [address], [place] [address] 20 Aug, 2013 [facility] [address] [id number] [address] [place] [address], [place] [address] 14 Aug, 2013 [facility] [address] [id number] [address] [place] [address], [place] [address] 14 Aug, 2013 [facility] [address] [id number] [address] [place] [address], [place] [address] 14 Aug, 2013 [facility] [address] [id number] [address] [place] [address], [place] [address] 14 Aug, 2013 [facility] [address] [id number] [address] [place] [address], [place] [address] 07 Aug, 2013 [facility] [address] [id number] [address] [place] [address], [place] [address] 07 Aug, 2013 [facility] [address] [id number] [address] [place] [address], [place] [address] 06 Aug, 2013 [facility] [address] [id number] [address] [place] [address], [place] [address] 06 Aug, 2013 [facility] [address] [id number] [address] [place] [address], [place] [address] 04 Aug, 2013 [facility] [address] [id number] [address] [place] [address], [place] [address] 04 Aug, 2013 [facility] [address] [id number] [address] [place] [address], [place] [address] Aug, [facility] [address] [id number] [address] [place] [address], [place] [address] Jul, [facility] [address] [id number] [address] [place] [address], [place] [address] Jul, [facility] [address] [id number] [address] [place] [address], [place] [address] Jul, [facility] [address] [id number] [address] [place] [address], [place] [address] Jul, [facility] [address] [id number] [address] [place] [address], [place] [address] Jul, [facility] [address] [id number] [address] [place] [address], [place] [address] Jul, [facility] [address] [id number] [address] [place] [address], [place] [address] Jul, [facility] [address] [id number] [address] [place] [address], [place] [address] Jul, [facility] [address] [id number] [address] [place] [address], [place] [address] Jul, [facility] [address] [id number] [address] [place] [address], [place] [address] Jul, [facility] [address] [id number] [address] [place] [address], [place] [address] Jul, [facility] [address] [id number] [address] [place] [address], [place] [address] Jul, [facility] [address] [id number] [address] [place] [address], [place] [address] Jul, [facility] [address] [id number] [address] [place] [address], [place] [address] Jul, [facility] [address] [id number] [address] [place] [address], [place] [address] Jul, [facility] [address] [id number] [address] [place] [address], [place] [address] Jul, [facility] [address] [id number] [address] [place] [address], [place] [address] Jul, [facility] [address] [id number] [address] [place] [address], [place] [address] Jul, [facility] [address] [id number] [address] [place] [address], [place] [address] Jul, [facility] [address] [id number] [address] [place] [address], [place] [address] Jul, [facility] [address] [id number] [address] [place] [address], [place] [address] Jun, [facility] [address] [id number] [address] [place] [address], [place] [address] Jun, [facility] [address] [id number] [address] [place] [address], [place] [address] Jun, [facility] [address] [id number] [address] [place] [address], [place] [address] Jun, [facility] [address] [id number] [address] [place] [address], [place] [address] Jun, [facility] [address] [id number] [address] [place] [address], [place] [address] Jun, [facility] [address] [id number] [address] [place] [address], [place] [address] Jun, [facility] [address] [id number] [address] [place] [address], [place] [address] Jun, [facility] [address] [id number] [address] [place] [address], [place] [address] Jun, [facility] [address] [id number] [address] [place] [address], [place] [address] Jun, [facility] [address] [id number] [address] [place] [address], [place] [address] Jun, [facility] [address] [id number] [address] [place] [address], [place] [address] Jun, [facility] [address] [id number] [address] [place] [address], [place] [address] Jun, [facility] [address] [id number] [address] [place] [address], [place] [address] Jun, [facility] [address] [id number] [address] [place] [address], [place] [address] 20 Jun, 2013 [facility] [address] [id number] [address] [place] [address], [place] [address] 18 Jun, 2013 [facility] [address] [id number] [address] [place] [address], [place] [address] 18 Jun, 2013 [facility] [address] [id number] [address] [place] [address], [place] [address] 17 Jun, 2013 [facility] [address] [id number] [address] [place] [address], [place] [address] 17 Jun, 2013 [facility] [address] [id number] [address] [place] [address], [place] [address] 13 Jun, 2013 [facility] [address] [id number] [address] [place] [address], [place] [address] 12 Jun, 2013 [facility] [address] [id number] [address] [place] [address], [place] [address] 12 Jun, 2013 [facility] [address] [id number] [address] [place] [address], [place] [address] 09 Jun, 2013 [facility] [address] [id number] [address] [place] [address], [place] [address] 05 Jun, 2013 [facility] [address] [id number] [address] [place] [address], [place] [address] 05 Jun, 2013 [facility] [address] [id number] [address] [place] [address], [place] [address] 04 Jun, 2013 [facility] [address] [id number] [address] [place] [address], [place] [address] 04 Jun, 2013 [facility] [address] [id number] [address] [place] [address], [place] [address] 17 May, 2013 [facility] [address] [id number] [address] [place] [address], [place] [address] 17 May, 2013 [facility] [address] [id number] [address] [place] [address], [place] [address] May, [facility] [address] [id number] [address] [place] [address], [place] [address] May, [facility] [address] [id number] [address] [place] [address], [place] [address] May, [facility] [address] [id number] [address] [place] [address], [place] [address] May, [facility] [address] [id number] [address] [place] [address], [place] [address] Apr, [facility] [address] [id number] [address] [place] [address], [place] [address] Apr, [facility] [address] [id number] [address] [place] [address], [place] [address] Apr, [facility] [address] [id number] [address] [place] [address], [place] [address] Apr, [facility] [address] [id number] [address] [place] [address], [place] [address] Apr, [facility] [address] [id number] [address] [place] [address], [place] [address] Apr, [facility] [address] [id number] [address] [place] [address], [place] [address] Apr, [facility] [address] [id number] [address] [place] [address], [place] [address] Apr, [facility] [address] [id number] [address] [place] [address], [place] [address] 26 Mar, 2013 [facility] [address] [id number] [address] [place] [address], [place] [address] 24 Sep2012 [facility] [address] [id number] [address] [place] [address], [place] [address] 17 Mar, 2013 [facility] [address] [id number] [address] [place] [address], [place] [address] 17 Mar, 2013 [facility] [address] [id number] [address] [place] [address] [place] [address] 11 Mar, 2013 [facility] [address] [id number] [address] [place] [address], [place] [address] 10 Mar, 2013 [facility] [address] [id number] [address] [place] [address], [place] [address] 05 Mar, 2013 [facility] [address] [id number] [address] [place] [address], [place] [address] 04 Mar, 2013 [facility] [address] [id number] [address] [place] [address], [place] [address] 20 Jan, 2013 [facility] [address] [id number] [address] [place] [address], [place] [address] Jan, [facility] [address] [id number] [address] [place] [address], [place] [address] 14 Jan, 2013 [facility] [address] [id number] [address] [place] [address], [place] [address] Jan, [facility] [address] [id number] [address] [place] [address], [place] [address] Jan, [facility] [address] [id number] [address] [place] [address], [place] [address] Jan, [facility] [address] [id number] [address] [place] [address], [place] [address] Dec, [facility] [address] [id number] [address] [place] [address], [place] [address] Dec, [facility] [address] [id number] [address] [place] [address], [place] [address] Dec, [facility] [address] [id number] [address] [place] [address], [place] [address] Dec, [facility] [address] [id number] [address] [place] [address], [place] [address] Dec, [facility] [address] [id number] [address] [place] [address], [place] [address] 17 Dec, 2012 [facility] [address] [id number] [address] [place] [address], [place] [address] 16 Dec, 2012 [facility] [address] [id number] [address] [place] [address], [place] [address] 16 Dec, 2012 [facility] [address] [id number] [address] [place] [address], [place] [address] 15 Dec, 2012 [facility] [address] [id number] [address] [place] [address], [place] [address] 10 Dec, 2012 [facility] [address] [id number] [address] [place] [address], [place] [address] 28 Dec, 2012 [facility] [address] [id number] [address] [place] [address], [place] [address] Dec, [facility] [address] [id number] [address] [place] [address], [place] [address] Dec, [facility] [address] [id number] [address] [place] [address], [place] [address] Dec, [facility] [address] [id number] [address] [place] [address], [place] [address] Dec, [facility] [address] [id number] [address] [place] [address], [place] [address] Dec, [facility] [address] [id number] [address] [place] [address], [place] [address] October, [facility] [address] [id number] [address] [place] [address], [place] [address] October, [facility] [address] [id number] [address] [place] [address], [place] [address] October, [facility] [address] [id number] [address] [place] [address], [place] [address] October, [facility] [address] [id number] [address] [place] [address], [place] [address] October, [facility] [address] [id number] [address] [place] [address], [place] [address] October, [facility] [address] [id number] [address] [place] [address], [place] [address] October, [facility] [address] [id number] [address] [place] [address], [place] [address] Oct, [facility] [address] [id number] [address] [place] [address], [place] [address] Oct, [facility] [address] [id number] [address] [place] [address], [place] [address] Oct, [facility] [address] [id number] [address] [place] [address], [place] [address] Oct, [facility] [address] [id number] [address] [place] [address], [place] [address] Oct, [facility] [address] [id number] [address] [place] [address], [place] [address] Oct, [facility] [address] [id number] [address] [place] [address], [place] [address] Oct, [facility] [address] [id number] [address] [place] [address], [place] [address] 15 Oct, 2012 [facility] [address] [id number] [address] [place] [address], [place] [address] Oct, [facility] [address] [id number] [address] [place] [address], [place] [address] Oct, [facility] [address] [id number] [address] [place] [address], [place] [address] Oct, [facility] [address] [id number] [address] [place] [address], [place] [address] Oct, [facility] [address] [id number] [address] [place] [address], [place] [address] Aug, [facility] [address] [id number] [address] [place] [address], [place] [address] Aug, [facility] [address] [id number] [address] [place] [address], [place] [address] 12 Aug, 2012 [facility] [address] [id number] [address] [place] [address], [place] [address] 06 Aug, 2012 [facility] [address] [id number] [address] [place] [address], [place] [address] 05 Aug, 2012 [facility] [address] [id number] [address] [place] [address], [place] [address] 05 Aug, 2012 [facility] [address] [id number] [address] [place] [address], [place] [address] 20 Aug, 2012 [facility] [address] [id number] [address] [place] [address], [place] [address] 14 Aug, 2012 [facility] [address] [id number] [address] [place] [address], [place] [address] 12 Aug, 2012 [facility] [address] [id number] [address] [place] [address], [place] [address] Aug, [facility] [address] [id number] [address] [place] [address], [place] [address] Jul, [facility] [address] [id number] [address] [place] [address], [place] [address] Jul, [facility] [address] [id number] [address] [place] [address], [place] [address] Jul, [facility] [address] [id number] [address] [place] [address], [place] [address] Jun, [facility] [address] [id number] [address] [place] [address], [place] [address] Jun, [facility] [address] [id number] [address] [place] [address], [place] [address] Jun, [facility] [address] [id number] [address] [place] [address], [place] [address] Jun, [facility] [address] [id number] [address] [place] [address], [place] [address] Jun, [facility] [address] [id number] [address] [place] [address], [place] [address] 14 Jun, 2012 [facility] [address] [id number] [address] [place] [address], [place] [address] 14 Jun, 2012 [facility] [address] [id number] [address] [place] [address], [place] [address] 13 Jun, 2012 [facility] [address] [id number] [address] [place] [address], [place] [address] 13 Jun, 2012 [facility] [address] [id number] [address] [place] [address], [place] [address] 11 Jun, 2012 [facility] [address] [id number] [address] [place] [address], [place] [address] 11 Jun, 2012 [facility] [address] [id number] [address] [place] [address], [place] [address] 11 Jun, 2012 [facility] [address] [id number] [address] [place] [address], [place] [address] 11 Jun, 2012 [facility] [address] [id number] [address] [place] [address], [place] [address] 07 Jun, 2012 [facility] [address] [id number] [address] [place] [address], [place] [address] 07 Jun, 2012 [facility] [address] [id number] [address] [place] [address], [place] [address] 06 Jun, 2012 [facility] [address] [id number] [address] [place] [address], [place] [address] 06 Jun, 2012 [facility] [address] [id number] [address] [place] [address], [place] [address] Jun, [facility] [address] [id number] [address] [place] [address], [place] [address] 06 Jun, 2012 [facility] [address] [id number] [address] [place] [address], [place] [address] 05 Jun, 2012 [facility] [address] [id number] [address] [place] [address], [place] [address] Jun, [facility] [address] [id number] [address] [place] [address], [place] [address] Jun, [facility] [address] [id number] [address] [place] [address], [place] [address] Jun, [facility] [address] [id number] [address] [place] [address], [place] [address] May, [facility] [address] [id number] [address] [place] [address], [place] [address] May, [facility] [address] [id number] [address] [place] [address], [place] [address] May, [facility] [address] [id number] [address] [place] [address], [place] [address] May, [facility] [address] [id number] [address] [place] [address], [place] [address] May, [facility] [address] [id number] [address] [place] [address], [place] [address] May, [facility] [address] [id number] [address] [place] [address], [place] [address] May, [facility] [address] [id number] [address] [place] [address], [place] [address] May, [facility] [address] [id number] [address] [place] [address], [place] [address] Apr, [facility] [address] [id number] [address] [place] [id number] Apr, [facility] [address] [id number] [address] [place] [address], [place] [address] Apr, [facility] [address] [id number] [address] [place] [address], [place] [address] Apr, [facility] [address] [id number] [address] [place] [id number] Apr, [facility] [address] [id number] [address] [place] [address], [place] [address] Apr, [facility] [address] [id number] [address] [place] [address], [place] [address] Apr, [facility] [address] [id number] [address] [place] [address], [place] [address] Apr, [facility] [address] [id number] [address] [place] [address], [place] [address] Apr, [facility] [address] [id number] [address] [place] [address], [place] [address] Apr, [facility] [address] [id number] [address] [place] [address], [place] [id number] Apr, [facility] [address] [id number] [address] [place] [address], [place] [address] Apr, [facility] [address] [id number] [address] [place] [address], [place] [address] Mar, [facility] [address] [id number] [address] [place] [address], [place] [address] 18 Mar, 2012 [facility] [address] [id number] [address] [place] [phone] Mar, [facility] [address] [id number] [address] [place] [phone] Mar, [facility] [address] [id number] [address] [place] [id number] Mar, [facility] [address] [id number] [address] [place] [id number] Mar, [facility] [address] [id number] [address] [place] [address], [place] [address] Mar, [facility] [address] [id number] [address] [place] [address], [place] [address] Jan, [facility] [address] [id number] [address] [place] [phone] Jan, [facility] [address] [id number] [facility] [id number] Jan, [facility] [address] [id number] [facility] [id number] Jan, [facility] [address] [id number] [address] [place] [address], [place] [address] Jan, [facility] [address] [id number] [address] [place] [address], [place] [address] Jan, [facility] [address] [id number] [address] [place] [address], [place] [address] Jan, [facility] [address] [id number] [address] [place] [address], [place] [address] Jan, [facility] [address] [id number] [address] [place] [address], [place] [address] Jan, [facility] [address] [id number] [address] [place] [address], [place] [address] Jan, [facility] [address] [id number] [address] [place] [address], [place] [address] Jan, [facility] [address] [id number] [address] [place] [address], [place] [address] Dec, [facility] [address] [id number] [address] [place] [address], [place] [address] Dec, [facility] [address] [id number] [address] [place] [address], [place] [address] Dec, [facility] [address] [id number] [address] [place] [address], [place] [address] Dec, [facility] [address] [id number] [address] [place] [address], [place] [address] Dec, [facility] [address] [id number] [address] [place] [address], [place] [address] Dec, [facility] [address] [id number] [address] [place] [address] [place] [address] 18 Jan, 2012 [facility] [address] [id number] [address] [place] [address], [place] [address] 17 Jan, 2012 [facility] [address] [id number] [address] [place] [address], [place] [address] 16 Jan, 2012 [facility] [address] [id number] [address] [place] [address], [place] [address] 13 Jan, 2012 [facility] [address] [id number] [address] [place] [address], [place] [address] 13 Jan, 2012 [facility] [address] [id number] [address] [place] [address], [place] [address] 02 Jan, 2012 [facility] [address] [id number] [address] [place] [address], [place] [address] Dec, [facility] [address] [id number] [address] [place] [address], [place] [address] Dec, [facility] [address] [id number] [address] [place] [address], [place] [address] Dec, [facility] [address] [id number] [address] [place] [address], [place] [address] Dec, [facility] [address] [id number] [address] [place] [address], [place] [address] 15 Dec, 2011 [facility] [address] [id number] [address] [place] [address], [place] [address] Dec, [facility] [address] [id number] [address] [place] [address], [place] [address] Dec, [facility] [address] [id number] [address] [place] [address], [place] [address] October, [facility] [address] [id number] [address] [place] [address], [place] [address] October, [facility] [address] [id number] [address] [place] [address], [place] [address] October, [facility] [address] [id number] [address] [place] [address], [place] [address] October, [facility] [address] [id number] [address] [place] [address], [place] [address] October, [facility] [address] [id number] [address] [place] [address], [place] [address] October, [facility] [address] [id number] [address] [place] [address], [place] [address] Oct, [facility] [address] [id number] [address] [place] [address], [place] [address] 24 Oct, 2011 [facility] [address] [id number] [address] [place] [address], [place] [address] Oct, [facility] [address] [id number] [address] [place] [address], [place] [address] Oct, [facility] [address] [id number] [address] [place] [address], [place] [address] Oct, [facility] [address] [id number] [address] [place] [address], [place] [address] Oct, [facility] [address] [id number] [address] [place] [address], [place] [address] Oct, [facility] [address] [id number] [address] [place] [address], [place] [address] Aug, [facility] [address] [id number] [address] [place] [address], [place] [address] 29 Sep, 2011 [facility] [address] [id number] [address] [place] [address], [place] [address] 19 Sep, 2011 [facility] [address] [id number] [address] [place] [address], [place] [address] 13 Sep, 2011 [facility] [address] [id number] [address] [place] [address], [place] [address] 05 Sep, 2011 [facility] [address] [id number] [address] [place] [address], [place] [address] Aug, [facility] [address] [id number] [address] [place] [address], [place] [address] Aug, [facility] [address] [id number] [address] [place] [address], [place] [address] Aug, [facility] [address] [id number] [address] [place] [address], [place] [address] Aug, [facility] [address] [id number] [address] [place] [address], [place] [address] Jul, [facility] [address] [id number] [address] [place] [address], [place] [address] Jul, [facility] [address] [id number] [address] [place] [address], [place] [address] Jul, [facility] [address] [id number] [address] [place] [address], [place] [address] Jul, [facility] [address] [id number] [address] [place] [address], [place] [address] Jun, [facility] [address] [id number] [address] [place] [address], [place] [address] Jun, [facility] [address] [id number] [address] [place] [address], [place] [address] May, [facility] [address] [id number] [address] [place] [address], [place] [address] May, [facility] [address] [id number] [address] [place] [address], [place] [address] May, [facility] [address] [id number] [address] [place] [address], [place] [address] May, [facility] [address] [id number] [address] [place] [address], [place] [address] 07 May, 2011 [facility] [address] [id number] [address] [place] [address], [place] [address] Apr, [facility] [address] [id number] [address] [place] [id number] Apr, [facility] [address] [id number] [address] [place] [id number] Apr, [facility] [address] [id number] [address] [place] [phone] Jan, [facility] [address] [id number] [address] [place] [phone] Dec, [facility] [address] [id number] [address] [place] [phone] October, [facility] [address] [id number] [address] [place] [id number] Jun, [facility] [address] [id number] [address] [place] [phone] Apr, [facility] [address] [id number] [address] [place] [phone] Apr, [facility] [address] [id number] [address] [place] [phone] Apr, [facility] [address] [id number] [address] [place] [phone] Jun, IMMUNIZATIONS No Known Immunizations SOCIAL HISTORY Never Assessed REASON FOR VISIT [facility] PLAN OF CARE VITAL SIGNS MEDICATIONS Unknown Medications RESULTS No Results PROCEDURES No Known procedures INSTRUCTIONS MEDICATIONS ADMINISTERED No Known Medications MEDICAL (GENERAL) HISTORY Type Description Date Medical History Psychiatric disorder Medical History Hard of hearing Surgical History Neofibrous tumor Surgical History back injection Hospitalization History Intestinal blockage Hospitalization History past psychiatric hospitalizations x2
--- OUTSIDE RECORDS SUMMARY | 2020-01-25 13:07 | XMS REPORT ---
Author Author Ana ESCAMILLA KWAME [facility] Address [address] [place] [address] Care Team Providers Care Mental Hygienist Name Role Phone FRANCINE, KWAME Unavailable PROBLEMS Type Condition ICD9-CM Code [id number] Code Onset Dates Condition S tatus SNOMED Code Problem Attention deficit R41.840 Active 76 629306 Problem Cannabis abuse F12.10 Active 23757 009 Problem Chronic hepatitis C without hepatic coma B18.2 Active 103988437 Problem Attention deficit hyperactivity disorder (ADHD), combi luciano type F90.2 Active 13583482 Problem Bipolar disorder, in partial remission, most rec ent episode hypomanic F31.71 Active 760141925 Problem H/O laminectomy Z98.89 Active 1616 72866 Problem Bipolar 1 disorder F31.9 Active 3 71154396 Problem Anxiety disorder, unspecified type F41.9 Active 622274530 Problem Other chronic pain G89.29 Active 8 [id number] ALLERGIES No Information ENCOUNTERS Encounter Location Date Diagnosis [facility] [address] [facility] [id number] [address] [place] [address] Apr, Bipolar disorder, in partial remission, most recent episode hypomanic F31.71 [facility] [address] [facility] [id number] [address] [place] [address] Apr, [facility] [address] [facility] [id number] [address] [place] [address] Apr, Bipolar disorder, in partial remission, most recent episode hypomanic F31.71 ; Attention deficit hyperactivity disorder (ADHD), combined type F90.2 ; Anxiety disorder, unspecified type F41.9 and Other penitentiary (current) drug therapy Z79.899 [facility] [address] [facility] [id number] [address] [place] [address] Apr, Bipolar disorder, in partial remission, most recent episode hypomanic F31.71 [facility] [address] [id number] [address] [place] [address] Apr, Bipolar disorder, in partial remission, most recent episode hypomanic F31.71 [facility] [address] [id number] [address] [place] [address] Mar, [facility] [address] [id number] [address] [place] [address] Mar, Bipolar disorder, in partial remission, most recent episode hypomanic F31.71 ; Encounter for immunization Z23 and Low back pain M54.5 [facility] [address] [id number] [address] [place] [address] Mar, Bipolar disorder, in partial remission, most recent episode hypomanic F31.71 [facility] [address] [id number] [address] [place] [address] Mar, Bipolar disorder, in partial remission, most recent episode hypomanic F31.71 [facility] [address] [id number] [address] [place] [address] Jan, Bipolar disorder, in partial remission, most recent episode hypomanic F31.71 [facility] [address] [id number] [address] [place] [address] Jan, Bipolar disorder, in partial remission, most recent episode hypomanic F31.71 [facility] [address] [id number] [address] [place] [address] Dec, Bipolar disorder, in partial remission, most recent episode hypomanic F31.71 [facility] [address] [id number] [address] [place] [address] Dec, Bipolar disorder, in partial remission, most recent episode hypomanic F31.71 ; Attention deficit hyperactivity disorder (ADHD), combined type F90.2 ; Anxiety disorder, unspecified type F41.9 and Other penitentiary (current) drug therapy Z79.899 [facility] [address] [id number] [address] [place] [address] Dec, Bipolar disorder, in partial remission, most recent episode hypomanic F31.71 [facility] [address] [id number] [address] [place] [address] Dec, Bipolar disorder, in partial remission, most recent episode hypomanic F31.71 [facility] [address] [id number] [address] [place] [address] October, Bipolar disorder, in partial remission, most recent episode hypomanic F31.71 [facility] [address] [id number] [address] [place] [address] October, [facility] [address] [facility] [id number] [address] [place] [address] October, [facility] [address] [facility] [id number] [address] [place] [address] Oct, Bipolar disorder, in partial remission, most recent episode hypomanic F31.71 ; Attention deficit hyperactivity disorder (ADHD), combined type F90.2 ; Anxiety disorder, unspecified type F41.9 and Encounter for drug screening Z02.83 [facility] [address] [id number] [address] [place] [address] Oct, Bipolar disorder, in partial remission, most recent episode hypomanic F31.71 [facility] [address] [facility] [id number] [address] [place] [address] Oct, Bipolar disorder, in partial remission, most recent episode hypomanic F31.71 [facility] [address] [facility] [id number] [address] [place] [address] Aug, Bipolar disorder, in partial remission, most recent episode hypomanic F31.71 [facility] [address] [facility] [id number] [address] [place] [address] Aug, Bipolar disorder, in partial remission, most recent episode hypomanic F31.71 [facility] [address] [facility] [id number] [address] [place] [address] Aug, Bipolar disorder, in partial remission, most recent episode hypomanic F31.71 [facility] [address] [id number] [address] [place] [address] Jul, Bipolar disorder, in partial remission, most recent episode hypomanic F31.71 ; Attention deficit hyperactivity disorder (ADHD), combined type F90.2 and Anxiety disorder, unspecified type F41.9 [facility] [address] [id number] [address] [place] [address] Jul, Bipolar disorder, in partial remission, most recent episode hypomanic F31.71 [facility] [address] [id number] [address] [place] [address] Jun, Bipolar disorder, in partial remission, most recent episode hypomanic F31.71 [facility] [address] [id number] [address] [place] [address] May, Bipolar disorder, in partial remission, most recent episode hypomanic F31.71 [facility] [address] [facility] [id number] [address] [place] [address] May, Bipolar disorder, in partial remission, most recent episode hypomanic F31.71 [facility] [address] [id number] [address] [place] [address] Apr, [facility] [address] [facility] [id number] [address] [place] [address] Apr, Bipolar disorder, in partial remission, most recent episode hypomanic F31.71 ; Attention deficit hyperactivity disorder (ADHD), combined type F90.2 ; Anxiety disorder, unspecified type F41.[address] F12[address]10 [facility] [address] [id number] [address] [place] [address] Apr, Attention deficit hyperactiv ity disorder (ADHD), combined type F90.2 [facility] [address] [id number] [address] [place] [address] Mar, Attention deficit hyperactiv ity disorder (ADHD), combined type F90.2 [facility] [address] [facility] [id number] [address] [place] [address] 14 Mar, 2017 Anxiety disorder, unspecifie d type F41.9 [facility] [address] [facility] [id number] [address] [place] [address] Jan, Attention deficit hyperactiv ity disorder (ADHD), combined type F90.2 [facility] [address] [facility] [id number] [address] [place] [address] Jan, Anxiety disorder, unspecifie d type F41.9 [facility] [address] [facility] [id number] [address] [place] [address] Jan, Other chronic pain G89.29 ; Chronic hepatitis C without hepatic coma B18.2 and Bipolar [address] [facility] [address] [facility] [id number] [address] [place] [address] Dec, Attention deficit hyperactiv ity disorder (ADHD), combined type F90.2 [facility] [address] [facility] [id number] [address] [place] [address] Dec, Bipolar disorder, in partial remission, most recent episode hypomanic F31.71 ; Attention deficit hyperactivity disorder (ADHD), combined type F90.2 and Anxiety disorder, unspecified type F41.9 [facility] [address] [facility] [id number] [address] [place] [address] Dec, Bipolar disorder, in partial remission, most recent episode hypomanic F31.71 ; Attention deficit hyperactivity disorder (ADHD), combined type F90.2 and Anxiety disorder, unspecified type F41.9 [facility] [address] [facility] [id number] [address] [place] [address] Dec, Bipolar 1 disorder F31.9 and Attention deficit R41.840 [facility] [address] [facility] [id number] [address] [place] [address] Oct, Other chronic pain G89.29 ; Alopecia L65.9 and Screening, lipid Z13.220 [facility] [address] [facility] [id number] [address] [place] [address] Oct, [facility] [address] [id number] [address] [place] [address] Aug, [facility] [address] [facility] [id number] [address] [place] [address] Aug, Eustachian tube dysfunction, right H69.81 ; Vertigo R42 and Other chronic pain G89.29 [facility] [address] [id number] [address] [place] [address] Aug, [facility] [address] [id number] [address] [place] [address] Jun, [facility] [address] [id number] [address] [place] [address] Jun, Low back pain M54.5 and Othe r chronic pain G89.29 [facility] [address] [id number] [address] [place] [address] Jun, [facility] [address] [id number] [address] [place] [phone] May, [facility] [address] [facility] [id number] [address] [place] [address] Jan, [facility] [address] [facility] [id number] [address] [place] [address] Dec, [facility] [address] [facility] [id number] [address] [place] [address] Dec, [facility] [address] [id number] [address] [place] [address] Jun, [facility] [address] [facility] [id number] [address] [place] [address] Apr, Eustachian tube dysfunction, unspecified laterality H69.80 ; Hot flashes N95.1 and Encounter for immunization Z23 [facility] [address] [id number] [address] [place] [address] Jan, [facility] [address] [id number] [address] [place] [address] Jan, [facility] [address] [id number] [address] [place] [address] Jan, [facility] [address] [id number] [address] [place] [address] Jan, [facility] [address] [id number] [address] [place] [address] Jan, Encounter to establish care V65.8 ; Bipolar 1 disorder 296.7 ; Abdominal pain 789.00 ; Constipation 564.00 ; Hard of hearing 389.[address] [facility] [address] [id number] [address] [place] [address] Dec, [facility] [address] [id number] [address] [place] [address] October, [facility] [address] [id number] [address] [place] [address] October, [facility] [address] [id number] [address] [place] [address] Oct, [facility] [address] [id number] [address] [place] [address] Oct, [facility] [address] [id number] [address] [place] [phone] Oct, [facility] [address] [id number] [address] [place] [address] Aug, [facility] [address] [id number] [address] [place] [address] Aug, [facility] [address] [id number] [address] [place] [address] Aug, [facility] [address] [id number] [address] [place] [phone] Aug, [facility] [address] [id number] [address] [place] [address], [place] [address] Aug, 2014 [facility] [address] [id number] [address] [place] [address], [place] [address] Aug, 2014 [facility] [address] [id number] [address] [place] [address], [place] [address] Aug, 2014 [facility] [address] [id number] [address] [place] [address], [place] [address] Aug, 2014 [facility] [address] [id number] [address] [place] [address], [place] [address] Aug, 2014 [facility] [address] [id number] [address] [place] [address], [place] [address] Aug, 2014 [facility] [address] [id number] [address] [place] [address], [place] [address] Aug, 2014 [facility] [address] [id number] [address] [place] [address], [place] [address] Aug, 2014 [facility] [address] [id number] [address] [place] [address], [place] [address] Aug, [facility] [address] [id number] [address] [place] [address], [place] [address] Aug, [facility] [address] [id number] [address] [place] [address], [place] [address] Aug, [facility] [address] [id number] [address] [place] [address] Jul, [facility] [address] [id number] [address] [place] [address], [place] [address] Jul, [facility] [address] [id number] [address] [place] [address] Jul, [facility] [address] [id number] [address] [place] [address] Jul, [facility] [address] [id number] [address] [place] [address] Jul, [facility] [address] [id number] [address] [place] [address], [place] [address] Jul, [facility] [address] [id number] [address] [place] [address], [place] [address] Jul, [facility] [address] [id number] [address] [place] [address], [place] [address] Jul, [facility] [address] [id number] [address] [place] [address], [place] [address] Jun, [facility] [address] [id number] [address] [place] [address], [place] [address] Jun, [facility] [address] [id number] [address] [place] [address], [place] [address] Jun, [facility] [address] [id number] [address] [place] [address], [place] [address] Jun, [facility] [address] [id number] [address] [place] [address], [place] [address] Jun, [facility] [address] [id number] [address] [place] [address], [place] [address] Jun, [facility] [address] [id number] [address] [place] [address], [place] [address] Jun, [facility] [address] [id number] [address] [place] [address], [place] [address] Jun, [facility] [address] [id number] [address] [place] [address], [place] [address] Jun, [facility] [address] [id number] [address] [place] [address], [place] [address] Jun, [facility] [address] [id number] [address] [place] [address], [place] [address] Jun, [facility] [address] [id number] [address] [place] [address], [place] [address] May, [facility] [address] [id number] [address] [place] [address], [place] [address] May, [facility] [address] [id number] [address] [place] [address], [place] [address] May, [facility] [address] [id number] [address] [place] [address], [place] [address] May, [facility] [address] [id number] [address] [place] [address], [place] [address] May, [facility] [address] [id number] [address] [place] [address], [place] [address] May, [facility] [address] [id number] [address] [place] [address], [place] [address] May, [facility] [address] [id number] [address] [place] [address], [place] [address] Apr, [facility] [address] [id number] [address] [place] [address], [place] [address] Apr, [facility] [address] [id number] [address] [place] [address], [place] [address] Apr, [facility] [address] [id number] [address] [place] [address], [place] [address] Apr, [facility] [address] [id number] [address] [place] [address], [place] [address] Apr, [facility] [address] [id number] [address] [place] [address], [place] [address] Apr, [facility] [address] [id number] [address] [place] [address], [place] [address] Mar, [facility] [address] [id number] [address] [place] [address], [place] [address] Mar, [facility] [address] [id number] [address] [place] [address], [place] [address] Mar, [facility] [address] [id number] [address] [place] [address], [place] [address] Mar, [facility] [address] [id number] [address] [place] [address], [place] [address] Mar, [facility] [address] [id number] [address] [place] [address], [place] [address] Mar, [facility] [address] [id number] [address] [place] [address], [place] [address] Jan, [facility] [address] [id number] [address] [place] [address], [place] [address] Jan, [facility] [address] [id number] [address] [place] [address], [place] [address] Jan, [facility] [address] [id number] [address] [place] [address], [place] [address] Jan, [facility] [address] [id number] [address] [place] [address], [place] [address] Dec, [facility] [address] [id number] [address] [place] [address], [place] [address] Dec, [facility] [address] [id number] [address] [place] [address], [place] [address] Dec, [facility] [address] [id number] [address] [place] [address], [place] [address] Dec, [facility] [address] [id number] [address] [place] [address], [place] [address] Dec, [facility] [address] [id number] [address] [place] [address], [place] [address] Dec, [facility] [address] [id number] [address] [place] [address], [place] [address] Dec, [facility] [address] [id number] [address] [place] [address], [place] [address] Dec, [facility] [address] [id number] [address] [place] [address], [place] [address] Dec, [facility] [address] [id number] [address] [place] [address], [place] [address] Dec, [facility] [address] [id number] [address] [place] [address], [place] [address] Dec, [facility] [address] [id number] [address] [place] [address], [place] [address] Dec, [facility] [address] [id number] [address] [place] [address], [place] [address] October, [facility] [address] [id number] [address] [place] [address], [place] [address] October, [facility] [address] [id number] [address] [place] [address], [place] [address] October, [facility] [address] [id number] [address] [place] [address], [place] [address] October, [facility] [address] [id number] [address] [place] [address], [place] [address] October, [facility] [address] [id number] [address] [place] [address], [place] [address] October, [facility] [address] [id number] [address] [place] [address], [place] [address] Oct, [facility] [address] [id number] [address] [place] [address], [place] [address] Oct, [facility] [address] [id number] [address] [place] [address], [place] [address] Oct, [facility] [address] [id number] [address] [place] [address], [place] [address] Oct, [facility] [address] [id number] [address] [place] [address], [place] [address] Oct, [facility] [address] [id number] [address] [place] [address], [place] [address] Oct, [facility] [address] [id number] [address] [place] [address], [place] [address] Oct, [facility] [address] [id number] [facility] [place] [address] Oct, [facility] [address] [id number] [facility] [place] [address] Oct, [facility] [address] [id number] [facility] [place] [address] Oct, [facility] [address] [id number] [address] [place] [address], [place] [address] Oct, [facility] [address] [id number] [address] [place] [address], [place] [address] Oct, [facility] [address] [id number] [address] [place] [address], [place] [address] Aug, [facility] [address] [id number] [address] [place] [address], [place] [address] Aug, [facility] [address] [id number] [address] [place] [address], [place] [address] Aug, [facility] [address] [id number] [address] [place] [address], [place] [address] Aug, [facility] [address] [id number] [address] [place] [address], [place] [address] Aug, [facility] [address] [id number] [address] [place] [address], [place] [address] Aug, [facility] [address] [id number] [address] [place] [address], [place] [address] Aug, [facility] [address] [id number] [address] [place] [address], [place] [address] Aug, [facility] [address] [id number] [address] [place] [address], [place] [address] Aug, [facility] [address] [id number] [address] [place] [address], [place] [address] Aug, [facility] [address] [id number] [address] [place] [address], [place] [address] 24 Aug, 2013 [facility] [address] [id number] [address] [place] [address], [place] [address] Aug, [facility] [address] [id number] [address] [place] [address], [place] [address] 21 Aug, 2013 [facility] [address] [address] [id number] [address] [place] [address], [place] [address] 20 Aug, 2013 [facility] [address] [id number] [address] [place] [address], [place] [address] 14 Aug, 2013 [facility] [address] [id number] [address] [place] [address], [place] [address] 14 Aug, 2013 [facility] [address] [id number] [address] [place] [address], [place] [address] 14 Aug, 2013 [facility] [address] [id number] [address] [place] [address], [place] [address] 14 Aug, 2013 [facility] [address] [id number] [address] [place] [address], [place] [address] 07 Aug, 2013 [facility] [address] [id number] [address] [place] [address], [place] [address] 07 Aug, 2013 [facility] [address] [id number] [address] [place] [address], [place] [address] 06 Aug, 2013 [facility] [address] [id number] [address] [place] [address], [place] [address] 06 Aug, 2013 [facility] [address] [id number] [address] [place] [address], [place] [address] 04 Aug, 2013 [facility] [address] [id number] [address] [place] [address], [place] [address] 04 Aug, 2013 [facility] [address] [id number] [address] [place] [address], [place] [address] 03 Aug, 2013 [facility] [address] [id number] [address] [place] [address], [place] [address] Jul, [facility] [address] [id number] [address] [place] [address], [place] [address] Jul, [facility] [address] [id number] [address] [place] [address], [place] [address] Jul, [facility] [address] [id number] [address] [place] [address], [place] [address] Jul, [facility] [address] [id number] [address] [place] [address], [place] [address] Jul, [facility] [address] [id number] [address] [place] [address], [place] [address] Jul, [facility] [address] [id number] [address] [place] [address], [place] [address] Jul, [facility] [address] [id number] [address] [place] [address], [place] [address] Jul, [facility] [address] [id number] [address] [place] [address], [place] [address] Jul, [facility] [address] [id number] [address] [place] [address], [place] [address] Jul, [facility] [address] [id number] [address] [place] [address], [place] [address] Jul, [facility] [address] [id number] [address] [place] [address], [place] [address] Jul, [facility] [address] [id number] [address] [place] [address], [place] [address] Jul, [facility] [address] [id number] [address] [place] [address], [place] [address] Jul, [facility] [address] [id number] [address] [place] [address], [place] [address] Jul, [facility] [address] [id number] [address] [place] [address], [place] [address] Jul, [facility] [address] [id number] [address] [place] [address], [place] [address] Jul, [facility] [address] [id number] [address] [place] [address], [place] [address] Jul, [facility] [address] [id number] [address] [place] [address], [place] [address] Jul, [facility] [address] [id number] [address] [place] [address], [place] [address] Jul, [facility] [address] [id number] [address] [place] [address], [place] [address] Jun, [facility] [address] [id number] [address] [place] [address], [place] [address] Jun, [facility] [address] [id number] [address] [place] [address], [place] [address] Jun, [facility] [address] [id number] [address] [place] [address], [place] [address] Jun, [facility] [address] [id number] [address] [place] [address], [place] [address] Jun, [facility] [address] [id number] [address] [place] [address], [place] [address] Jun, [facility] [address] [id number] [address] [place] [address], [place] [address] Jun, [facility] [address] [id number] [address] [place] [address], [place] [address] Jun, [facility] [address] [id number] [address] [place] [address], [place] [address] Jun, [facility] [address] [id number] [address] [place] [address], [place] [address] Jun, [facility] [address] [id number] [address] [place] [address], [place] [address] Jun, [facility] [address] [id number] [address] [place] [address], [place] [address] Jun, [facility] [address] [id number] [address] [place] [address], [place] [address] 23 Jun, 2013 [facility] [address] [id number] [address] [place] [address], [place] [address] Jun, [facility] [address] [id number] [address] [place] [address], [place] [address] Jun, [facility] [address] [id number] [address] [place] [address], [place] [address] 18 Jun, 2013 [facility] [address] [id number] [address] [place] [address], [place] [address] 18 Jun, 2013 [facility] [address] [id number] [address] [place] [address], [place] [address] Jun, [facility] [address] [id number] [address] [place] [address], [place] [address] 17 Jun, 2013 [facility] [address] [id number] [address] [place] [address], [place] [address] Jun, [facility] [address] [id number] [address] [place] [address], [place] [address] Jun, [facility] [address] [id number] [address] [place] [address], [place] [address] Jun, [facility] [address] [id number] [address] [place] [address], [place] [address] Jun, [facility] [address] [id number] [address] [place] [address], [place] [address] 05 Jun, 2013 [facility] [address] [id number] [address] [place] [address], [place] [address] 05 Jun, 2013 [facility] [address] [id number] [address] [place] [address], [place] [address] 04 Jun, 2013 [facility] [address] [id number] [address] [place] [address], [place] [address] 04 Jun, 2013 [facility] [address] [id number] [address] [place] [address], [place] [address] May, [facility] [address] [id number] [address] [place] [address], [place] [address] May, [facility] [address] [id number] [address] [place] [address], [place] [address] May, [facility] [address] [id number] [address] [place] [address], [place] [address] May, [facility] [address] [id number] [address] [place] [address], [place] [address] May, [facility] [address] [id number] [address] [place] [address], [place] [address] May, [facility] [address] [id number] [address] [place] [address] Apr, [facility] [address] [id number] [address] [place] [address], [place] [address] Apr, [facility] [address] [id number] [address] [place] [address], [place] [address] Apr, [facility] [address] [id number] [address] [place] [address], [place] [address] 30 Apr, 2013 [facility] [address] [id number] [address] [place] [address] Apr, [facility] [address] [id number] [address] [place] [address] 15 Apr, 2013 [facility] [address] [id number] [address] [place] [address] 15 Apr, 2013 [facility] [address] [id number] [address] [place] [address], [place] [address] Apr, [facility] [address] [id number] [address] [place] [id number] Mar, [facility] [address] [id number] [address] [place] [address], [place] [address] 24 Mar, 2013 [facility] [address] [id number] [address] [place] [address], [place] [address] 17 Mar, 2012 [facility] [address] [id number] [address] [place] [address], [place] [address] 17 Mar, 2012 [facility] [address] [id number] [address] [place] [address], [place] [address] 11 Mar, 2012 [facility] [address] [id number] [address] [place] [address], [place] [address] 10 Mar, 2012 [facility] [address] [id number] [address] [place] [address], [place] [address] 05 Mar, 2012 [facility] [address] [id number] [address] [place] [address], [place] [address] 04 Mar, 2013 [facility] [address] [id number] [address] [place] [address], [place] [address] 20 Jan, 2013 [facility] [address] [id number] [address] [place] [address], [place] [address] Jan, [facility] [address] [id number] [address] [place] [address], [place] [address] 14 Jan, 2013 [facility] [address] [id number] [address] [place] [address], [place] [address] Jan, [facility] [address] [id number] [address] [place] [address], [place] [address] Jan, [facility] [address] [id number] [address] [place] [address], [place] [address] Jan, [facility] [address] [id number] [address] [place] [address], [place] [address] Dec, [facility] [address] [id number] [address] [place] [address], [place] [address] Dec, [facility] [address] [id number] [address] [place] [address], [place] [address] Dec, [facility] [address] [id number] [address] [place] [address], [place] [address] Dec, [facility] [address] [id number] [address] [place] [address], [place] [address] 18 Dec, 2012 [facility] [address] [id number] [address] [place] [address], [place] [address] 17 Dec, 2012 [facility] [address] [id number] [address] [place] [address], [place] [address] 16 Dec, 2012 [facility] [address] [id number] [address] [place] [address], [place] [address] 16 Dec, 2012 [facility] [address] [id number] [address] [place] [address], [place] [address] 15 Dec, 2012 [facility] [address] [id number] [address] [place] [address], [place] [address] Dec, [facility] [address] [id number] [address] [place] [address], [place] [address] Dec, [facility] [address] [id number] [address] [place] [address], [place] [address] Dec, [facility] [address] [id number] [address] [place] [address], [place] [address] Dec, [facility] [address] [id number] [address] [place] [address], [place] [address] Dec, [facility] [address] [id number] [address] [place] [address], [place] [address] Dec, [facility] [address] [id number] [address] [place] [address], [place] [address] Dec, [facility] [address] [id number] [address] [place] [address], [place] [address] October, [facility] [address] [id number] [address] [place] [address], [place] [address] October, [facility] [address] [id number] [address] [place] [address], [place] [address] October, [facility] [address] [id number] [address] [place] [address], [place] [address] October, [facility] [address] [id number] [address] [place] [address], [place] [address] October, [facility] [address] [id number] [address] [place] [address], [place] [address] October, [facility] [address] [id number] [address] [place] [address], [place] [address] October, [facility] [address] [id number] [address] [place] [address], [place] [address] Oct, [facility] [address] [id number] [address] [place] [address], [place] [address] Oct, [facility] [address] [id number] [address] [place] [address], [place] [address] Oct, [facility] [address] [id number] [address] [place] [address], [place] [address] Oct, [facility] [address] [id number] [address] [place] [address], [place] [address] Oct, [facility] [address] [id number] [address] [place] [address], [place] [address] 18 Oct, 2012 [facility] [address] [id number] [address] [place] [address], [place] [address] Oct, [facility] [address] [id number] [address] [place] [address], [place] [address] 15 Oct, 2012 [facility] [address] [id number] [address] [place] [address], [place] [address] Oct, [facility] [address] [id number] [address] [place] [address], [place] [address] Oct, [facility] [address] [id number] [address] [place] [address], [place] [address] Oct, [facility] [address] [id number] [address] [place] [address], [place] [address] Oct, [facility] [address] [id number] [address] [place] [address], [place] [address] 20 Aug, 2012 [facility] [address] [id number] [address] [place] [address], [place] [address] 20 Aug, 2012 [facility] [address] [id number] [address] [place] [address], [place] [address] Aug, [facility] [address] [id number] [address] [place] [address], [place] [address] 06 Aug, 2012 [facility] [address] [id number] [address] [place] [address], [place] [address] 05 Aug, 2012 [facility] [address] [id number] [address] [place] [address], [place] [address] 05 Aug, 2012 [facility] [address] [id number] [address] [place] [address], [place] [address] 20 Aug, 2012 [facility] [address] [id number] [address] [place] [address], [place] [address] 14 Aug, 2012 [facility] [address] [id number] [address] [place] [address], [place] [address] 12 Aug, 2012 [facility] [address] [id number] [address] [place] [address], [place] [address] Aug, [facility] [address] [id number] [address] [place] [address], [place] [address] 29 Jul, 2012 [facility] [address] [id number] [address] [place] [address], [place] [address] 15 Jul, 2012 [facility] [address] [id number] [address] [place] [address], [place] [address] 08 Jul, 2012 [facility] [address] [id number] [address] [place] [address], [place] [address] Jun, [facility] [address] [id number] [address] [place] [address], [place] [address] 18 Jun, 2012 [facility] [address] [id number] [address] [place] [address], [place] [address] 18 Jun, 2012 [facility] [address] [id number] [address] [place] [address], [place] [address] 18 Jun, 2012 [facility] [address] [id number] [address] [place] [address], [place] [address] 18 Jun, 2012 [facility] [address] [id number] [address] [place] [address], [place] [address] 14 Jun, 2012 [facility] [address] [id number] [address] [place] [address], [place] [address] 14 Jun, 2012 [facility] [address] [id number] [address] [place] [address], [place] [address] 13 Jun, 2012 [facility] [address] [id number] [address] [place] [address], [place] [address] 13 Jun, 2012 [facility] [address] [id number] [address] [place] [address], [place] [address] 11 Jun, 2012 [facility] [address] [id number] [address] [place] [address], [place] [address] 11 Jun, 2012 [facility] [address] [id number] [address] [place] [address], [place] [address] 11 Jun, 2012 [facility] [address] [id number] [address] [place] [address], [place] [address] 11 Jun, 2012 [facility] [address] [id number] [address] [place] [address], [place] [address] 07 Jun, 2012 [facility] [address] [id number] [address] [place] [address], [place] [address] 07 Jun, 2012 [facility] [address] [id number] [address] [place] [address], [place] [address] 06 Jun, 2012 [facility] [address] [id number] [address] [place] [address], [place] [id number] 06 Jun, 2012 [facility] [address] [id number] [address] [place] [address], [place] [id number] 06 Jun, 2012 [facility] [address] [id number] [address] [place] [address], [place] [address] Jun, [facility] [address] [id number] [address] [place] [address], [place] [address] Jun, [facility] [address] [id number] [address] [place] [address], [place] [address] Jun, [facility] [address] [id number] [address] [place] [address], [place] [address] Jun, [facility] [address] [id number] [address] [place] [address], [place] [address] Jun, [facility] [address] [id number] [address] [place] [address], [place] [address] May, [facility] [address] [id number] [address] [place] [address], [place] [address] May, [facility] [address] [id number] [address] [place] [address], [place] [address] May, [facility] [address] [id number] [address] [place] [address], [place] [address] May, [facility] [address] [id number] [address] [place] [address], [place] [address] May, [facility] [address] [id number] [address] [place] [address], [place] [address] May, [facility] [address] [id number] [address] [place] [address], [place] [address] May, [facility] [address] [id number] [address] [place] [address], [place] [address] May, [facility] [address] [id number] [address] [place] [address], [place] [address] Apr, [facility] [address] [id number] [address] [place] [address], [place] [address] Apr, [facility] [address] [id number] [address] [place] [address], [place] [address] Apr, [facility] [address] [id number] [address] [place] [address], [place] [address] 16 Apr, 2012 [facility] [address] [id number] [address] [place] [address], [place] [id number] 16 Apr, 2012 [facility] [address] [id number] [address] [place] [address], [place] [address] Apr, [facility] [address] [id number] [address] [place] [address], [place] [address] Apr, [facility] [address] [id number] [address] [place] [address], [place] [address] Apr, [facility] [address] [id number] [address] [place] [address], [place] [address] Apr, [facility] [address] [id number] [address] [place] [address], [place] [address] Apr, [facility] [address] [id number] [address] [place] [id number] 04 Apr, 2012 [facility] [address] [id number] [address] [place] [id number] Apr, [facility] [address] [id number] [address] [place] [id number] 19 Mar, 2012 [facility] [address] [id number] [address] [place] [id number] 18 Mar, 2012 [facility] [address] [id number] [address] [place] [id number] 12 Mar, 2012 [facility] [address] [id number] [address] [place] [id number] 12 Mar, 2012 [facility] [address] [id number] [address] [place] [id number] 12 Mar, 2012 [facility] [address] [id number] [address] [place] [id number] 12 Mar, 2012 [facility] [address] [id number] [address] [place] [id number] Mar, [facility] [address] [id number] [address] [place] [address], [place] [id number] Jan, [facility] [address] [id number] [address] [place] [address], [place] [address] Jan, [facility] [address] [id number] [facility] [place] [id number] Jan, [facility] [address] [id number] [facility] [id number] Jan, [facility] [address] [id number] [address] [place] [address], [place] [address] Jan, [facility] [address] [id number] [address] [place] [address], [place] [id number] Jan, [facility] [address] [id number] [address] [place] [address], [place] [address] Jan, [facility] [address] [id number] [address] [place] [address], [place] [id number] Jan, [facility] [address] [id number] [address] [place] [address], [place] [address] Jan, [facility] [address] [id number] [address] [place] [address], [place] [address] Jan, [facility] [address] [id number] [address] [place] [address], [place] [address] Jan, [facility] [address] [id number] [address] [place] [address], [place] [address] Dec, [facility] [address] [id number] [address] [place] [address], [place] [address] Dec, [facility] [address] [id number] [address] [place] [address], [place] [address] Dec, [facility] [address] [id number] [address] [place] [address], [place] [address] Dec, [facility] [address] [id number] [address] [place] [address], [place] [address] 20 Jan, 2012 [facility] [address] [id number] [address] [place] [address], [place] [id number] 19 Jan, 2012 [facility] [address] [id number] [address] [place] [address], [place] [address] 18 Jan, 2012 [facility] [address] [id number] [address] [place] [address], [place] [id number] 17 Jan, 2012 [facility] [address] [id number] [address] [place] [address], [place] [address] 16 Jan, 2012 [facility] [address] [id number] [address] [place] [address], [place] [address] 13 Jan, 2012 [facility] [address] [id number] [address] [place] [address], [place] [address] 13 Jan, 2012 [facility] [address] [id number] [address] [place] [address], [place] [id number] 02 Jan, 2012 [facility] [address] [id number] [address] [place] [address], [place] [address] 27 Dec, 2011 [facility] [address] [id number] [address] [place] [address], [place] [address] 27 Dec, 2011 [facility] [address] [id number] [address] [place] [address], [place] [address] 25 Dec, 2011 [facility] [address] [id number] [address] [place] [address], [place] [id number] 18 Dec, 2011 [facility] [address] [id number] [address] [place] [address], [place] [address] 15 Dec, 2011 [facility] [address] [id number] [address] [place] [address], [place] [id number] 06 Dec, 2011 [facility] [address] [id number] [address] [place] [address], [place] [address] 05 Dec, 2011 [facility] [address] [id number] [address] [place] [address], [place] [address] October, [facility] [address] [id number] [address] [place] [address], [place] [address] October, [facility] [address] [id number] [address] [place] [address], [place] [address] October, [facility] [address] [id number] [address] [place] [address], [place] [address] October, [facility] [address] [id number] [address] [place] [address], [place] [address] October, [facility] [address] [id number] [address] [place] [address], [place] [address] October, [facility] [address] [id number] [address] [place] [address], [place] [address] Oct, [facility] [address] [id number] [address] [place] [address], [place] [address] Oct, [facility] [address] [id number] [address] [place] [address], [place] [address] Oct, [facility] [address] [id number] [address] [place] [address], [place] [address] Oct, [facility] [address] [id number] [address] [place] [address], [place] [address] Oct, [facility] [address] [id number] [address] [place] [address], [place] [address] Oct, [facility] [address] [id number] [address] [place] [address], [place] [address] Oct, [facility] [address] [id number] [address] [place] [address], [place] [address] Aug, [facility] [address] [id number] [address] [place] [address], [place] [address] Aug, [facility] [address] [id number] [address] [place] [address], [place] [address] Aug, [facility] [address] [id number] [address] [place] [address], [place] [address] Aug, [facility] [address] [id number] [address] [place] [address], [place] [address] Aug, [facility] [address] [id number] [address] [place] [address], [place] [id number] 05 Sep, 2011 [facility] [address] [id number] [address] [place] [address], [place] [address] 27 Aug, 2011 [facility] [address] [id number] [address] [place] [address], [place] [address] Aug, [facility] [address] [id number] [address] [place] [address], [place] [address] 08 Aug, 2011 [facility] [address] [id number] [address] [place] [address], [place] [address] Jul, [facility] [address] [id number] [address] [place] [address], [place] [address] Jul, [facility] [address] [id number] [address] [place] [address], [place] [address] Jul, [facility] [address] [id number] [address] [place] [address], [place] [address] Jul, [facility] [address] [id number] [address] [place] [address], [place] [address] Jun, [facility] [address] [id number] [address] [place] [address], [place] [address] Jun, [facility] [address] [id number] [address] [place] [address], [place] [address] May, [facility] [address] [id number] [address] [place] [address], [place] [address] May, [facility] [address] [id number] [address] [place] [address], [place] [address] May, [facility] [address] [id number] [address] [place] [address], [place] [address] May, [facility] [address] [id number] [address] [place] [id number] May, [facility] [address] [id number] [address] [place] [id number] Apr, [facility] [address] [id number] [address] [place] [id number] Apr, [facility] [address] [id number] [address] [place] [id number] Apr, [facility] [address] [id number] [address] [place] [id number] Jan, [facility] [address] [id number] [address] [place] [id number] Dec, [facility] [address] [id number] [address] [place] [id number] October, [facility] [address] [id number] [address] [place] [id number] Jun, [facility] [address] [id number] [address] [place] [id number] Apr, [facility] [address] [id number] [address] [place] [id number] Apr, [facility] [address] [id number] [address] [place] [id number] Apr, [facility] [address] [id number] [address] [place] [id number] Jun, IMMUNIZATIONS No Known Immunizations SOCIAL HISTORY Never Assessed REASON FOR VISIT CONTROLLED CONTRACT VIOLATION PLAN OF CARE VITAL SIGNS MEDICATIONS Medication Instructions Dosage Frequency Start Date End Date Duration S tatus Valium 5 mg Orally Once a day for two we eks, then 1/2 tablet a day for two weeks, then stop. tapering out. 1 tablet Apr, 28 days Active RESULTS No Results PROCEDURES No Known procedures INSTRUCTIONS MEDICATIONS ADMINISTERED No Known Medications MEDICAL (GENERAL) HISTORY Type Description Date Medical History Psychiatric disorder Medical History Hard of hearing Surgical History Neofibrous tumor Surgical History back injection Hospitalization History Intestinal blockage Hospitalization History past psychiatric hospitalizations x2
--- OUTSIDE RECORDS SUMMARY | 2020-01-25 13:07 | XMS REPORT ---
Author Author FRANCINE Ana KWAME [facility] Address [address] [place] [address] Care Team Providers Care Network Support Name Role Phone Jackie ESCAMILLAYEN Unavailable PROBLEMS Type Condition ICD9-CM Code GLH15-CY Code Onset Dates Condition S tatus SNOMED Code Problem Attention deficit R41.840 Active 76 944083 Problem Cannabis abuse F12.10 Active 55715 009 Problem Chronic hepatitis C without hepatic coma B18.2 Active 916828147 Problem Attention deficit hyperactivity disorder (ADHD), combi luciano type F90.2 Active 30139456 Problem Bipolar disorder, in partial remission, most rec ent episode hypomanic F31.71 Active 696595809 Problem H/O laminectomy Z98.89 Active 1616 36831 Problem Bipolar 1 disorder F31.9 Active 3 29965583 Problem Anxiety disorder, unspecified type F41.9 Active 824879785 Problem Other chronic pain G89.29 Active 8 3612270 ALLERGIES Substance Reaction Event Type Date Status Zyprexa Unknown Drug Allergy Apr, Active Amitiza Unknown Non Drug Allergy Apr, Active Hydrocodone Failed UDS (opiates, & THC) Non Drug Allergy Apr, 018 Active Benzodiazepines Failed UDS (opiates, & THC) Non Drug Allergy Apr Active ENCOUNTERS Encounter Location Date Diagnosis [facility] [address] [facility] [id number] [address] [place] [phone] Apr, [facility] [address] [facility] [id number] [address] [place] [address] Apr, Bipolar disorder, in partial remission, most recent episode hypomanic F31.71 ; Attention deficit hyperactivity disorder (ADHD), combined type F90.2 ; Anxiety disorder, unspecified type F41.9 and Other snf (current) drug therapy Z79.899 [facility] [address] [facility] [id number] [address] [place] [phone] Apr, Bipolar disorder, in partial remission, most recent episode hypomanic F31.71 [facility] [address] [facility] [id number] [address] [place] [address] Apr, Bipolar disorder, in partial remission, most recent episode hypomanic F31.71 [facility] [address] [facility] [id number] [address] [place] [address] Mar, [facility] [address] [facility] [id number] [address] [place] [address] Mar, Bipolar disorder, in partial remission, most recent episode hypomanic F31.71 ; Encounter for immunization Z23 and Low back pain M54.5 [facility] [address] [facility] [id number] [address] [place] [address] Mar, Bipolar disorder, in partial remission, most recent episode hypomanic F31.71 [facility] [address] [facility] [id number] [address] [place] [address] Mar, Bipolar disorder, in partial remission, most recent episode hypomanic F31.71 [facility] [address] [facility] [id number] [address] [place] [address] Jan, Bipolar disorder, in partial remission, most recent episode hypomanic F31.71 [facility] [address] [facility] [id number] [address] [place] [address] Jan, Bipolar disorder, in partial remission, most recent episode hypomanic F31.71 [facility] [address] [facility] [id number] [address] [place] [address] Dec, Bipolar disorder, in partial remission, most recent episode hypomanic F31.71 [facility] [address] [facility] [id number] [address] [place] [address] Dec, Bipolar disorder, in partial remission, most recent episode hypomanic F31.71 ; Attention deficit hyperactivity disorder (ADHD), combined type F90.2 ; Anxiety disorder, unspecified type F41.9 and 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 [facility] [address] [id number] [address] [place] [address] Dec, Bipolar disorder, in partial remission, most recent episode hypomanic F31.71 [facility] [address] [id number] [address] [place] [address] Dec, Bipolar disorder, in partial remission, most recent episode hypomanic F31.71 [facility] [address] [id number] [address] [place] [address] October, Bipolar disorder, in partial remission, most recent episode hypomanic F31.71 [facility] [address] [id number] [address] [place] [address] October, [facility] [address] [id number] [address] [place] [address] October, [facility] [address] [id number] [address] [place] [address] Oct, Bipolar disorder, in partial remission, most recent episode hypomanic F31.71 ; Attention deficit hyperactivity disorder (ADHD), combined type F90.2 ; Anxiety disorder, unspecified type F41.9 and Encounter for drug screening Z02.83 [facility] [address] [id number] [address] [place] [address] Oct, Bipolar disorder, in partial remission, most recent episode hypomanic F31.71 [facility] [address] [id number] [address] [place] [address] Oct, Bipolar disorder, in partial remission, most recent episode hypomanic F31.71 [facility] [address] [id number] [address] [place] [address] Aug, Bipolar disorder, in partial remission, most recent episode hypomanic F31.71 [facility] [address] [id number] [address] [place] [address] Aug, Bipolar disorder, in partial remission, most recent episode hypomanic F31.71 [facility] [address] [facility] [id number] [address] [place] [address] Aug, Bipolar disorder, in partial remission, most recent episode hypomanic F31.71 [facility] [address] [facility] [id number] [address] [place] [address] Jul, Bipolar disorder, in partial remission, most recent episode hypomanic F31.71 ; Attention deficit hyperactivity disorder (ADHD), combined type F90.2 and Anxiety disorder, unspecified type F41.9 [facility] [address] [facility] [id number] [address] [place] [address] Jul, Bipolar disorder, in partial remission, most recent episode hypomanic F31.71 [facility] [address] [facility] [id number] [address] [place] [address] Jun, Bipolar disorder, in partial remission, most recent episode hypomanic F31.71 [facility] [address] [facility] [id number] [address] [place] [address] May, Bipolar disorder, in partial remission, most recent episode hypomanic F31.71 [facility] [address] [facility] [id number] [address] [place] [address] May, Bipolar disorder, in partial remission, most recent episode hypomanic F31.71 [facility] [address] [facility] [id number] [address] [place] [address] Apr, [facility] [address] [facility] [id number] [address] [place] [address] Apr, Bipolar disorder, in partial remission, most recent episode hypomanic F31.71 ; Attention deficit hyperactivity disorder (ADHD), combined type F90.2 ; Anxiety disorder, unspecified type F41.9 and Cannabis abuse F12.10 [facility] [address] [facility] [id number] [address] [place] [address] Apr, Attention deficit hyperactiv ity disorder (ADHD), combined type F90.2 [facility] [address] [facility] [id number] [address] [place] [phone] Mar, Attention deficit hyperactiv ity disorder (ADHD), combined type F90.2 [facility] [address] [id number] [address] [place] [phone] 14 Mar, 2017 Anxiety disorder, unspecifie d type F41.9 [facility] [address] [id number] [address] [place] [address] Jan, Attention deficit hyperactiv ity disorder (ADHD), combined type F90.2 [facility] [address] [facility] [id number] [address] [place] [phone] Jan, Anxiety disorder, unspecifie d type F41.9 [facility] [address] [facility] [id number] [address] [place] [address] Jan, Other chronic pain G89.29 ; Chronic hepatitis C without hepatic coma B18.2 and Bipolar 1 disorder F31.9 [facility] [address] [facility] [id number] [address] [place] [address] Dec, Attention deficit hyperactiv ity disorder (ADHD), combined type F90.2 [facility] [address] [facility] [id number] [address] [place] [phone] Dec, Bipolar disorder, in partial remission, most recent episode hypomanic F31.71 ; Attention deficit hyperactivity disorder (ADHD), combined type F90.2 and Anxiety disorder, unspecified type F41.9 [facility] [address] [facility] [id number] [address] [place] [phone] Dec, Bipolar disorder, in partial remission, most recent episode hypomanic F31.71 ; Attention deficit hyperactivity disorder (ADHD), combined type F90.2 and Anxiety disorder, unspecified type F41.9 [facility] [address] [facility] [id number] [address] [place] [address] Dec, Bipolar 1 disorder F31.9 and Attention deficit R41.840 [facility] [address] [facility] [id number] [address] [place] [address] Oct, Other chronic pain G89.29 ; Alopecia L65.9 and Screening, lipid Z13.220 [facility] [address] [id number] [address] [place] [address] Oct, [facility] [address] [id number] [address] [place] [address] Aug, [facility] [address] [facility] [id number] [address] [place] [address] Aug, Eustachian tube dysfunction, right H69.81 ; Vertigo R42 and Other chronic pain G89.29 [facility] [address] [id number] [address] [place] [phone] Aug, [facility] [address] [id number] [address] [place] [address] Jun, [facility] [address] [facility] [id number] [address] [place] [address] Jun, Low back pain M54.5 and Othe r chronic pain G89.29 [facility] [address] [id number] [address] [place] [address] Jun, [facility] [address] [id number] [address] [place] [phone] May, [facility] [address] [facility] [id number] [address] [place] [phone] Jan, [facility] [address] [facility] [id number] [address] [place] [phone] Dec, [facility] [address] [facility] [id number] [address] [place] [phone] Dec, [facility] [address] [id number] [address] [place] [address] Jun, [facility] [address] [facility] [id number] [address] [place] [address] Apr, Eustachian tube dysfunction, unspecified laterality H69.80 ; Hot flashes N95.1 and Encounter for immunization Z23 [facility] [address] [id number] [address] [place] [address] Jan, [facility] [address] [id number] [address] [place] [address] Jan, [facility] [address] [id number] [address] [place] [address] Jan, [facility] [address] [id number] [address] [place] [address] Jan, [facility] [address] [id number] [address] [place] [address] Jan, Encounter to establish care V65.8 ; Bipolar 1 disorder 296.7 ; Abdominal pain 789.00 ; Constipation 564.00 ; Hard of hearing 389.9 and Drug abuse 305.90 [facility] [address] [id number] [address] [place] [address] Dec, [facility] [address] [id number] [address] [place] [address] October, [facility] [address] [id number] [address] [place] [address] October, [facility] [address] [id number] [address] [place] [address] Oct, [facility] [address] [id number] [address] [place] [address] Oct, [facility] [address] [id number] [address] [place] [address] Oct, [facility] [address] [id number] [address] [place] [phone] Aug, [facility] [address] [id number] [address] [place] [address] Aug, [facility] [address] [id number] [address] [place] [address] Aug, [facility] [address] [id number] [address] [place] [phone] Aug, 2014 [facility] [address] [id number] [address] [place] [address], [place] [address] Aug, 2014 [facility] [address] [id number] [address] [place] [address], [place] [address] Aug, 2014 [facility] [address] [id number] [address] [place] [address], [place] [address] Aug, 2014 [facility] [address] [id number] [address] [place] [address], [place] [address] Aug, 2014 [facility] [address] [id number] [address] [place] [address], [place] [address] Aug, 2014 [facility] [address] [id number] [address] [place] [address], [place] [address] Aug, 2014 [facility] [address] [id number] [address] [place] [address], [place] [address] Aug, 2014 [facility] [address] [id number] [address] [place] [address], [place] [address] Aug, 2014 [facility] [address] [id number] [address] [place] [address], [place] [address] Aug, 2014 [facility] [address] [id number] [address] [place] [address], [place] [address] Aug, [facility] [address] [id number] [address] [place] [address], [place] [address] Aug, 2014 [facility] [address] [id number] [address] [place] [address], [place] [address] Jul, [facility] [address] [id number] [address] [place] [address], [place] [address] Jul, [facility] [address] [id number] [address] [place] [address], [place] [address] Jul, [facility] [address] [id number] [address] [place] [address], [place] [address] Jul, [facility] [address] [id number] [address] [place] [address], [place] [address] Jul, [facility] [address] [id number] [address] [place] [address], [place] [address] Jul, [facility] [address] [id number] [address] [place] [address], [place] [address] Jul, [facility] [address] [id number] [address] [place] [address], [place] [address] Jul, [facility] [address] [id number] [address] [place] [address], [place] [address] Jun, [facility] [address] [id number] [address] [place] [address], [place] [address] Jun, [facility] [address] [id number] [address] [place] [address], [place] [address] Jun, [facility] [address] [id number] [address] [place] [address], [place] [address] Jun, [facility] [address] [id number] [address] [place] [address], [place] [address] Jun, [facility] [address] [id number] [address] [place] [address], [place] [address] Jun, [facility] [address] [id number] [address] [place] [address], [place] [address] Jun, [facility] [address] [id number] [address] [place] [address], [place] [address] Jun, [facility] [address] [id number] [address] [place] [address], [place] [address] Jun, [facility] [address] [id number] [address] [place] [address], [place] [address] Jun, [facility] [address] [id number] [address] [place] [address], [place] [address] Jun, [facility] [address] [id number] [address] [place] [address] May, [facility] [address] [id number] [address] [place] [address], [place] [address] May, [facility] [address] [id number] [address] [place] [address] May, [facility] [address] [id number] [address] [place] [address], [place] [address] May, [facility] [address] [id number] [address] [place] [address], [place] [address] May, [facility] [address] [id number] [address] [place] [address], [place] [address] May, [facility] [address] [id number] [address] [place] [address], [place] [address] May, [facility] [address] [id number] [address] [place] [address], [place] [address] Apr, [facility] [address] [id number] [address] [place] [address], [place] [address] Apr, [facility] [address] [id number] [address] [place] [address], [place] [address] Apr, [facility] [address] [id number] [address] [place] [address], [place] [address] Apr, [facility] [address] [id number] [address] [place] [address] Apr, [facility] [address] [id number] [address] [place] [address] Apr, [facility] [address] [id number] [address] [place] [address], [place] [address] Mar, [facility] [address] [id number] [address] [place] [address], [place] [address] 29 Mar, 2014 [facility] [address] [id number] [address] [place] [address], [place] [address] Mar, [facility] [address] [id number] [address] [place] [address], [place] [address] Mar, [facility] [address] [id number] [address] [place] [address], [place] [address] Mar, [facility] [address] [id number] [address] [place] [address], [place] [address] Mar, [facility] [address] [id number] [address] [place] [address], [place] [address] Jan, [facility] [address] [id number] [address] [place] [address], [place] [address] Jan, [facility] [address] [id number] [address] [place] [address], [place] [address] Jan, [facility] [address] [id number] [address] [place] [address], [place] [address] Jan, [facility] [address] [id number] [address] [place] [address], [place] [address] Dec, [facility] [address] [id number] [address] [place] [address], [place] [address] Dec, [facility] [address] [id number] [address] [place] [address], [place] [address] Dec, [facility] [address] [id number] [address] [place] [address], [place] [address] Dec, [facility] [address] [id number] [address] [place] [address], [place] [address] Dec, [facility] [address] [id number] [address] [place] [address], [place] [address] Dec, [facility] [address] [id number] [address] [place] [address], [place] [address] Dec, [facility] [address] [id number] [address] [place] [address], [place] [address] Dec, [facility] [address] [id number] [address] [place] [address], [place] [address] Dec, [facility] [address] [id number] [facility] [place] [address] Dec, [facility] [address] [id number] [address] [place] [address], [place] [address] Dec, [facility] [address] [id number] [address] [place] [address], [place] [address] Dec, [facility] [address] [id number] [address] [place] [address], [place] [address] October, [facility] [address] [id number] [address] [place] [address], [place] [address] October, [facility] [address] [id number] [address] [place] [address], [place] [address] October, [facility] [address] [id number] [address] [place] [address], [place] [address] October, [facility] [address] [id number] [address] [place] [address], [place] [address] October, [facility] [address] [id number] [address] [place] [address], [place] [address] October, [facility] [address] [id number] [address] [place] [address], [place] [address] Oct, [facility] [address] [id number] [address] [place] [address], [place] [address] Oct, [facility] [address] [id number] [address] [place] [address], [place] [address] Oct, [facility] [address] [id number] [address] [place] [address], [place] [address] Oct, [facility] [address] [id number] [address] [place] [address], [place] [address] Oct, [facility] [address] [id number] [address] [place] [address], [place] [address] Oct, [facility] [address] [id number] [address] [place] [address], [place] [address] Oct, [facility] [address] [id number] [address] [place] [address], [place] [address] Oct, [facility] [address] [id number] [address] [place] [address], [place] [address] Oct, [facility] [address] [id number] [address] [place] [address], [place] [address] Oct, [facility] [address] [id number] [address] [place] [address], [place] [address] Oct, [facility] [address] [id number] [address] [place] [address], [place] [address] Oct, [facility] [address] [id number] [address] [place] [address], [place] [address] Aug, [facility] [address] [id number] [address] [place] [address], [place] [address] Aug, [facility] [address] [id number] [address] [place] [address], [place] [address] Aug, [facility] [address] [id number] [address] [place] [address], [place] [address] Aug, [facility] [address] [id number] [address] [place] [address], [place] [address] Aug, [facility] [address] [id number] [address] [place] [address], [place] [address] Aug, [facility] [address] [id number] [address] [place] [address], [place] [address] Aug, [facility] [address] [id number] [address] [place] [address], [place] [address] Aug, [facility] [address] [id number] [address] [place] [address], [place] [address] Aug, [facility] [address] [id number] [address] [place] [address], [place] [address] Aug, [facility] [address] [id number] [facility] [place] [address] 24 Aug, 2013 [facility] [address] [id number] [address] [place] [address], [place] [address] Aug, 2013 [facility] [address] [id number] [facility] [place] [address] 21 Aug, 2013 [facility] [address] [id number] [address] [place] [address], [place] [address] 20 Aug, 2013 [facility] [address] [id number] [address] [place] [address], [place] [address] 14 Aug, 2013 [facility] [address] [id number] [address] [place] [address], [place] [address] 14 Aug, 2013 [facility] [address] [id number] [address] [place] [address], [place] [address] 14 Aug, 2013 [facility] [address] [id number] [address] [place] [address], [place] [address] 14 Aug, 2013 [facility] [address] [id number] [address] [place] [address], [place] [address] 07 Aug, 2013 [facility] [address] [id number] [address] [place] [address], [place] [address] 07 Aug, 2013 [facility] [address] [id number] [address] [place] [address], [place] [address] 06 Aug, 2013 [facility] [address] [id number] [address] [place] [address], [place] [address] 06 Aug, 2013 [facility] [address] [id number] [address] [place] [address], [place] [address] 04 Aug, 2013 [facility] [address] [id number] [address] [place] [address], [place] [address] 04 Aug, 2013 [facility] [address] [id number] [address] [place] [address], [place] [address] 03 Aug, 2013 [facility] [address] [id number] [address] [place] [address], [place] [address] 30 Jul, 2013 [facility] [address] [id number] [address] [place] [address], [place] [address] Jul, [facility] [address] [id number] [address] [place] [address], [place] [address] Jul, [facility] [address] [id number] [address] [place] [address], [place] [address] Jul, [facility] [address] [id number] [address] [place] [address], [place] [address] Jul, [facility] [address] [id number] [address] [place] [address], [place] [address] Jul, [facility] [address] [id number] [address] [place] [address], [place] [address] Jul, [facility] [address] [id number] [address] [place] [address], [place] [address] Jul, [facility] [address] [id number] [address] [place] [address], [place] [address] Jul, [facility] [address] [id number] [address] [place] [address], [place] [address] Jul, [facility] [address] [id number] [address] [place] [address], [place] [address] Jul, [facility] [address] [id number] [address] [place] [address], [place] [address] Jul, [facility] [address] [id number] [address] [place] [address], [place] [address] Jul, [facility] [address] [id number] [address] [place] [address], [place] [address] Jul, [facility] [address] [id number] [address] [place] [address], [place] [address] Jul, [facility] [address] [id number] [address] [place] [address], [place] [address] Jul, [facility] [address] [id number] [address] [place] [address], [place] [address] Jul, [facility] [address] [id number] [address] [place] [address], [place] [address] Jul, [facility] [address] [id number] [address] [place] [address], [place] [address] Jul, [facility] [address] [id number] [address] [place] [address], [place] [address] Jul, [facility] [address] [id number] [address] [place] [address], [place] [address] Jun, [facility] [address] [id number] [address] [place] [address], [place] [address] Jun, [facility] [address] [id number] [address] [place] [address], [place] [address] Jun, [facility] [address] [id number] [address] [place] [address], [place] [address] Jun, [facility] [address] [id number] [address] [place] [address], [place] [address] Jun, [facility] [address] [id number] [address] [place] [address], [place] [address] Jun, [facility] [address] [id number] [address] [place] [address], [place] [address] Jun, [facility] [address] [id number] [address] [place] [address], [place] [address] Jun, [facility] [address] [id number] [address] [place] [address], [place] [address] Jun, [facility] [address] [id number] [address] [place] [address], [place] [address] Jun, [facility] [address] [id number] [address] [place] [address], [place] [address] Jun, [facility] [address] [id number] [address] [place] [address], [place] [address] 23 Jun, 2013 [facility] [address] [id number] [address] [place] [address], [place] [address] 23 Jun, 2013 [facility] [address] [id number] [address] [place] [address], [place] [address] Jun, [facility] [address] [id number] [address] [place] [address], [place] [address] 20 Jun, 2013 [facility] [address] [id number] [address] [place] [address], [place] [address] 18 Jun, 2013 [facility] [address] [id number] [address] [place] [address], [place] [address] 18 Jun, 2013 [facility] [address] [id number] [address] [place] [address], [place] [address] 17 Jun, 2013 [facility] [address] [id number] [address] [place] [address], [place] [address] 17 Jun, 2013 [facility] [address] [id number] [address] [place] [address], [place] [address] 13 Jun, 2013 [facility] [address] [id number] [address] [place] [address], [place] [address] 12 Jun, 2013 [facility] [address] [id number] [address] [place] [address], [place] [address] 12 Jun, 2013 [facility] [address] [id number] [address] [place] [address], [place] [address] 09 Jun, 2013 [facility] [address] [id number] [address] [place] [address], [place] [address] 05 Jun, 2013 [facility] [address] [id number] [address] [place] [address], [place] [address] 05 Jun, 2013 [facility] [address] [id number] [address] [place] [address], [place] [address] 04 Jun, 2013 [facility] [address] [id number] [address] [place] [address], [place] [address] 04 Jun, 2013 [facility] [address] [id number] [address] [place] [address], [place] [address] May, [facility] [address] [id number] [address] [place] [address], [place] [address] May, [facility] [address] [id number] [address] [place] [address], [place] [address] May, [facility] [address] [id number] [address] [place] [address], [place] [address] May, [facility] [address] [id number] [address] [place] [address], [place] [address] May, [facility] [address] [id number] [address] [place] [address], [place] [address] May, [facility] [address] [id number] [address] [place] [address], [place] [address] Apr, [facility] [address] [id number] [address] [place] [address], [place] [address] Apr, [facility] [address] [id number] [address] [place] [address], [place] [address] Apr, [facility] [address] [id number] [address] [place] [address], [place] [address] Apr, [facility] [address] [id number] [address] [place] [address], [place] [address] Apr, [facility] [address] [id number] [address] [place] [address], [place] [address] Apr, [facility] [address] [id number] [address] [place] [address], [place] [address] Apr, [facility] [address] [id number] [address] [place] [address], [place] [address] Apr, [facility] [address] [id number] [address] [place] [address], [place] [address] Mar, [facility] [address] [id number] [address] [place] [address], [place] [address] 24 Mar, 2013 [facility] [address] [id number] [address] [place] [address], [place] [address] 17 Mar, 2012 [facility] [address] [id number] [address] [place] [address], [place] [address] 17 Mar, 2013 [facility] [address] [id number] [address] [place] [address], [place] [address] 11 Mar, 2012 [facility] [address] [id number] [address] [place] [address], [place] [address] 10 Mar, 2012 [facility] [address] [id number] [address] [place] [address], [place] [address] 05 Mar, 2013 [facility] [address] [id number] [address] [place] [address], [place] [address] 04 Mar, 2013 [facility] [address] [id number] [address] [place] [address], [place] [address] Jan, [facility] [address] [id number] [address] [place] [address], [place] [address] Jan, [facility] [address] [id number] [address] [place] [address], [place] [address] 14 Jan, 2013 [facility] [address] [id number] [address] [place] [address], [place] [address] Jan, [facility] [address] [id number] [address] [place] [address], [place] [address] Jan, [facility] [address] [id number] [address] [place] [address], [place] [address] Jan, [facility] [address] [id number] [address] [place] [address], [place] [address] Dec, [facility] [address] [id number] [address] [place] [address], [place] [address] Dec, [facility] [address] [id number] [address] [place] [address], [place] [address] Dec, [facility] [address] [id number] [address] [place] [address], [place] [address] 19 Dec, 2012 [facility] [address] [id number] [address] [place] [address], [place] [address] 18 Dec, 2012 [facility] [address] [id number] [address] [place] [address], [place] [address] 17 Dec, 2012 [facility] [address] [id number] [address] [place] [address], [place] [address] 16 Dec, 2012 [facility] [address] [id number] [address] [place] [address], [place] [address] 16 Dec, 2012 [facility] [address] [id number] [address] [place] [address], [place] [address] 15 Dec, 2012 [facility] [address] [id number] [address] [place] [address], [place] [address] Dec, [facility] [address] [id number] [address] [place] [address], [place] [address] Dec, [facility] [address] [id number] [address] [place] [address], [place] [address] Dec, [facility] [address] [id number] [address] [place] [address], [place] [address] Dec, [facility] [address] [id number] [address] [place] [address], [place] [address] Dec, [facility] [address] [id number] [address] [place] [address], [place] [address] Dec, [facility] [address] [id number] [address] [place] [address], [place] [address] Dec, [facility] [address] [id number] [address] [place] [address], [place] [address] October, [facility] [address] [id number] [address] [place] [address], [place] [address] October, [facility] [address] [id number] [address] [place] [address], [place] [address] October, [facility] [address] [id number] [address] [place] [address], [place] [address] October, [facility] [address] [id number] [address] [place] [address], [place] [address] October, [facility] [address] [id number] [address] [place] [address], [place] [address] October, [facility] [address] [id number] [address] [place] [address], [place] [address] October, [facility] [address] [id number] [address] [place] [address], [place] [address] Oct, [facility] [address] [id number] [address] [place] [address], [place] [address] Oct, [facility] [address] [id number] [address] [place] [address], [place] [address] Oct, [facility] [address] [id number] [address] [place] [address], [place] [address] Oct, [facility] [address] [id number] [address] [place] [address], [place] [address] Oct, [facility] [address] [id number] [address] [place] [address], [place] [address] Oct, [facility] [address] [id number] [address] [place] [address], [place] [address] Oct, [facility] [address] [id number] [address] [place] [address], [place] [address] 15 Oct, 2012 [facility] [address] [id number] [address] [place] [address], [place] [address] Oct, [facility] [address] [id number] [address] [place] [address], [place] [address] Oct, [facility] [address] [id number] [address] [place] [address], [place] [address] Oct, [facility] [address] [id number] [address] [place] [address] 02 Oct, 2012 [facility] [address] [id number] [address] [place] [address], [place] [address] Aug, [facility] [address] [id number] [address] [place] [address], [place] [address] Aug, [facility] [address] [id number] [address] [place] [address], [place] [address] Aug, [facility] [address] [id number] [address] [place] [address], [place] [address] 06 Aug, 2012 [facility] [address] [id number] [address] [place] [address], [place] [address] 05 Aug, 2012 [facility] [address] [id number] [address] [place] [address], [place] [address] 05 Aug, 2012 [facility] [address] [id number] [address] [place] [address], [place] [address] Aug, [facility] [address] [id number] [address] [place] [address], [place] [address] 14 Aug, 2012 [facility] [address] [id number] [address] [place] [address], [place] [address] 12 Aug, 2012 [facility] [address] [id number] [address] [place] [address], [place] [address] Aug, [facility] [address] [id number] [address] [place] [address], [place] [address] 29 Jul, 2012 [facility] [address] [id number] [address] [place] [address], [place] [address] 15 Jul, 2012 [facility] [address] [id number] [address] [place] [address], [place] [address] 08 Jul, 2012 [facility] [address] [id number] [address] [place] [address], [place] [address] Jun, [facility] [address] [id number] [address] [place] [address] Jun, [facility] [address] [id number] [address] [place] [address], [place] [address] 18 Jun, 2012 [facility] [address] [id number] [address] [place] [address], [place] [address] 18 Jun, 2012 [facility] [address] [id number] [address] [place] [address], [place] [address] 18 Jun, 2012 [facility] [address] [id number] [address] [place] [address], [place] [address] 14 Jun, 2012 [facility] [address] [id number] [address] [place] [address], [place] [address] 14 Jun, 2012 [facility] [address] [id number] [address] [place] [address], [place] [address] 13 Jun, 2012 [facility] [address] [id number] [address] [place] [address], [place] [address] 13 Jun, 2012 [facility] [address] [id number] [address] [place] [address], [place] [address] 11 Jun, 2012 [facility] [address] [id number] [address] [place] [address], [place] [address] 11 Jun, 2012 [facility] [address] [id number] [address] [place] [address], [place] [address] 11 Jun, 2012 [facility] [address] [id number] [address] [place] [address], [place] [address] 11 Jun, 2012 [facility] [address] [id number] [address] [place] [address], [place] [address] 07 Jun, 2012 [facility] [address] [id number] [address] [place] [address], [place] [address] 07 Jun, 2012 [facility] [address] [id number] [address] [place] [address], [place] [address] 06 Jun, 2012 [facility] [address] [id number] [address] [place] [address], [place] [address] 06 Jun, 2012 [facility] [address] [id number] [address] [place] [address], [place] [address] Jun, [facility] [address] [id number] [address] [place] [address], [place] [address] Jun, [facility] [address] [id number] [address] [place] [address], [place] [address] Jun, [facility] [address] [id number] [address] [place] [address], [place] [address] Jun, [facility] [address] [id number] [address] [place] [address], [place] [address] Jun, [facility] [address] [id number] [address] [place] [address], [place] [address] Jun, [facility] [address] [id number] [address] [place] [address], [place] [address] May, [facility] [address] [id number] [address] [place] [address], [place] [address] May, [facility] [address] [id number] [address] [place] [address], [place] [address] May, [facility] [address] [id number] [address] [place] [address], [place] [address] May, [facility] [address] [id number] [address] [place] [address], [place] [address] May, [facility] [address] [id number] [address] [place] [id number] May, [facility] [address] [id number] [address] [place] [id number] May, [facility] [address] [id number] [address] [place] [address], [place] [address] May, [facility] [address] [id number] [address] [place] [address], [place] [address] Apr, [facility] [address] [id number] [address] [place] [address], [place] [address] Apr, [facility] [address] [id number] [address] [place] [address], [place] [address] 29 Apr, 2012 [facility] [address] [id number] [address] [place] [address], [place] [address] Apr, [facility] [address] [id number] [address] [place] [address], [place] [address] 16 Apr, 2012 [facility] [address] [id number] [address] [place] [address], [place] [address] Apr, [facility] [address] [id number] [address] [place] [address], [place] [address] Apr, [facility] [address] [id number] [address] [place] [address], [place] [address] Apr, [facility] [address] [id number] [address] [place] [address], [place] [address] 09 Apr, 2012 [facility] [address] [id number] [address] [place] [address], [place] [address] 08 Apr, 2012 [facility] [address] [id number] [address] [place] [id number] 04 Apr, 2012 [facility] [address] [id number] [address] [place] [address], [place] [address] 02 Apr, 2012 [facility] [address] [id number] [address] [place] [id number] 19 Mar, 2011 [facility] [address] [id number] [address] [place] [id number] 18 Sep, 2011 [facility] [address] [id number] [address] [place] [id number] 12 Mar, 2012 [facility] [address] [id number] [address] [place] [id number] 12 Mar, 2012 [facility] [address] [id number] [address] [place] [id number] 12 Mar, 2012 [facility] [address] [id number] [address] [place] [id number] Mar, [facility] [address] [id number] [address] [place] [address], [place] [address] Mar, [facility] [address] [id number] [address] [place] [address], [place] [address] Jan, [facility] [address] [id number] [address] [place] [address], [place] [address] Jan, [facility] [address] [id number] [address] [place] [address], [place] [id number] Jan, [facility] [address] [id number] [address] [place] [address], [place] [id number] Jan, [facility] [address] [id number] [address] [place] [address], [place] [address] Jan, [facility] [address] [id number] [address] [place] [address], [place] [address] Jan, [facility] [address] [id number] [address] [place] [address], [place] [address] Jan, [facility] [address] [id number] [address] [place] [address], [place] [address] Jan, [facility] [address] [id number] [address] [place] [address], [place] [address] Jan, [facility] [address] [id number] [address] [place] [address], [place] [address] Jan, [facility] [address] [id number] [address] [place] [address], [place] [address] Jan, [facility] [address] [id number] [address] [place] [address], [place] [address] Dec, [facility] [address] [id number] [address] [place] [address], [place] [address] Dec, [facility] [address] [id number] [address] [place] [address], [place] [address] Dec, [facility] [address] [id number] [address] [place] [address], [place] [address] 26 Jan, 2012 [facility] [address] [id number] [address] [place] [address], [place] [address] 20 Jan, 2012 [facility] [address] [id number] [address] [place] [address], [place] [address] 19 Jan, 2012 [facility] [address] [id number] [address] [place] [address], [place] [id number] 18 Jan, 2012 [facility] [address] [id number] [address] [place] [address], [place] [address] 17 Jan, 2012 [facility] [address] [id number] [address] [place] [address], [place] [id number] 16 Jan, 2012 [facility] [address] [id number] [address] [place] [address], [place] [address] 13 Jan, 2012 [facility] [address] [id number] [address] [place] [address], [place] [address] 13 Jan, 2012 [facility] [address] [id number] [address] [place] [address], [place] [address] 02 Jan, 2012 [facility] [address] [id number] [address] [place] [address], [place] [id number] 27 Dec, 2011 [facility] [address] [id number] [address] [place] [address], [place] [id number] 27 Dec, 2011 [facility] [address] [id number] [address] [place] [address], [place] [id number] 25 Dec, 2011 [facility] [address] [id number] [address] [place] [address], [place] [id number] 18 Dec, 2011 [facility] [address] [id number] [address] [place] [address], [place] [id number] 15 Dec, 2011 [facility] [address] [id number] [address] [place] [address], [place] [id number] 06 Dec, 2011 [facility] [address] [id number] [address] [place] [address], [place] [id number] 05 Dec, 2011 [facility] [address] [id number] [address] [place] [address], [place] [id number] October, [facility] [address] [id number] [address] [place] [address], [place] [address] October, [facility] [address] [id number] [address] [place] [address], [place] [phone] October, [facility] [address] [id number] [address] [place] [address], [place] [id number] October, [facility] [address] [id number] [address] [place] [address], [place] [address] October, [facility] [address] [id number] [address] [place] [address], [place] [address] October, [facility] [address] [id number] [address] [place] [address], [place] [address] Oct, [facility] [address] [id number] [address] [place] [address], [place] [id number] Oct, [facility] [address] [id number] [address] [place] [address], [place] [address] Oct, [facility] [address] [id number] [address] [place] [address], [place] [address] Oct, [facility] [address] [id number] [address] [place] [address], [place] [address] Oct, [facility] [address] [id number] [address] [place] [address], [place] [address] Oct, [facility] [address] [id number] [address] [place] [address], [place] [id number] Oct, [facility] [address] [id number] [address] [place] [address], [place] [address] Aug, [facility] [address] [id number] [address] [place] [address], [place] [address] Aug, [facility] [address] [id number] [address] [place] [address], [place] [address] Aug, [facility] [address] [id number] [address] [place] [address], [place] [id number] 13 Sep, 2011 [facility] [address] [id number] [address] [place] [address], [place] [address] 05 Sep, 2011 [facility] [address] [id number] [address] [place] [address], [place] [address] 05 Sep, 2011 [facility] [address] [id number] [address] [place] [address], [place] [id number] 27 Aug, 2011 [facility] [address] [id number] [address] [place] [address], [place] [address] Aug, [facility] [address] [id number] [address] [place] [address], [place] [address] 08 Aug, 2011 [facility] [address] [id number] [address] [place] [address], [place] [address] Jul, [facility] [address] [id number] [address] [place] [address], [place] [address] Jul, [facility] [address] [id number] [address] [place] [address], [place] [address] Jul, [facility] [address] [id number] [address] [place] [address], [place] [address] Jul, [facility] [address] [id number] [address] [place] [address], [place] [address] Jun, [facility] [address] [id number] [address] [place] [address], [place] [address] Jun, [facility] [address] [id number] [address] [place] [address], [place] [address] May, [facility] [address] [id number] [address] [place] [address], [place] [address] May, [facility] [address] [id number] [address] [place] [address], [place] [address] 28 May, 2011 [facility] [address] [id number] [address] [place] [phone] May, [facility] [address] [id number] [address] [place] [phone] May, [facility] [address] [id number] [address] [place] [phone] Apr, [facility] [address] [id number] [address] [place] [phone] Apr, [facility] [address] [id number] [address] [place] [phone] Apr, [facility] [address] [id number] [address] [place] [phone] Jan, [facility] [address] [id number] [address] [place] [phone] Dec, [facility] [address] [id number] [address] [place] [phone] October, [facility] [address] [id number] [address] [place] [phone] Jun, [facility] [address] [id number] [address] [place] [phone] Apr, [facility] [address] [id number] [address] [place] [phone] Apr, [facility] [address] [id number] [address] [place] [phone] Apr, [facility] [address] [id number] [address] [place] [phone] Jun, IMMUNIZATIONS No Known Immunizations SOCIAL HISTORY Never Assessed REASON FOR VISIT f/u Kika PLAN OF CARE Activity Details Follow Up 4 Weeks Reason: f/u VITAL SIGNS MEDICATIONS Medication Instructions Dosage Frequency Start Date End Date Duration S wilyus Prazosin HCl 5 mg Orally Once a day TAKE ONE CAPSULE BY MOUTH ONCE DAILY AT BEDTIME 24h Active HydrOXYzine HCl 50 mg Orally 3 times a day 1 tablet as needed 8h Active Gabapentin 800 MG Orally 4 times a day 1 tablet 6h 30 Active Plus Iron 29-1 MG Orally Once a day 1 tablet 24h 24 Ap r, 2017 90 days Active Seroquel 400 MG TAKE TWO TABLETS BY MOUTH ONCE DAILY AT BEDTIME Active Valium 5 mg Orally Twice a day 1 tablet as needed 12h Active Adderall 10 mg Orally 3 times a day 1 tablet 8h Apr, Active RESULTS No Results PROCEDURES Procedure Date Ordered Result Body Site [facility] VISIT ESTABLISHED PATIENT Apr 26, 2018 INSTRUCTIONS MEDICATIONS ADMINISTERED No Known Medications MEDICAL (GENERAL) HISTORY Type Description Date Medical History Psychiatric disorder Medical History Hard of hearing Surgical History Neofibrous tumor Surgical History back injection Hospitalization History Intestinal blockage Hospitalization History past psychiatric hospitalizations x2
--- OUTSIDE RECORDS SUMMARY | 2020-01-25 13:08 | XMS REPORT ---
Author Author Ana ESCAMILLAYEN [facility] Address [address] [place] [address] Care Team Providers Care Director Translation Name Role Phone FRANCINE, KWAME Unavailable PROBLEMS Type Condition ICD9-CM Code [id number] Code Onset Dates Condition S tatus SNOMED Code Problem Attention deficit R41.840 Active 76 558824 Problem Cannabis abuse F12.10 Active 01492 009 Problem Chronic hepatitis C without hepatic coma B18.2 Active 594554267 Problem Attention deficit hyperactivity disorder (ADHD), combi luciano type F90.2 Active 73104518 Problem Bipolar disorder, in partial remission, most rec ent episode hypomanic F31.71 Active 759207586 Problem H/O laminectomy Z98.89 Active 1616 33098 Problem Bipolar 1 disorder F31.9 Active 3 69939360 Problem Anxiety disorder, unspecified type F41.9 Active 179098090 Problem Other chronic pain G89.29 Active 8 [id number] ALLERGIES No Information ENCOUNTERS Encounter Location Date Diagnosis [facility] [address] [facility] [id number] [address] [place] [address] Apr, [facility] [address] [facility] [id number] [address] [place] [address] Apr, [facility] [address] [facility] [id number] [address] [place] [address] Mar, [facility] [address] [facility] [id number] [address] [place] [address] Mar, Bipolar disorder, in partial remission, most recent episode hypomanic F31.71 ; Encounter for immunization Z23 and Low back pain M54.5 [facility] [address] [facility] [id number] [address] [place] [id number] 17 Mar, 2018 Bipolar disorder, in partial remission, most recent episode hypomanic F31.71 [facility] [address] [id number] [address] [place] [address] Mar, Bipolar disorder, in partial remission, most recent episode hypomanic F31.71 [facility] [address] [id number] [address] [place] [address] Jan, Bipolar disorder, in partial remission, most recent episode hypomanic F31.71 [facility] [address] [id number] [address] [place] [address] Jan, Bipolar disorder, in partial remission, most recent episode hypomanic F31.71 [facility] [address] [id number] [address] [place] [address] Dec, Bipolar disorder, in partial remission, most recent episode hypomanic F31.71 [facility] [address] [id number] [address] [place] [address] Dec, Bipolar disorder, in partial remission, most recent episode hypomanic F31.71 ; Attention deficit hyperactivity disorder (ADHD), combined type F90.2 ; Anxiety disorder, unspecified type F41.9 and 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 [facility] [address] [id number] [address] [place] [address] Dec, Bipolar disorder, in partial remission, most recent episode hypomanic F31.71 [facility] [address] [id number] [address] [place] [address] Dec, Bipolar disorder, in partial remission, most recent episode hypomanic F31.71 [facility] [address] [id number] [address] [place] [address] October, Bipolar disorder, in partial remission, most recent episode hypomanic F31.71 [facility] [address] [id number] [address] [place] [address] October, [facility] [address] [id number] [address] [place] [address] October, [facility] [address] [id number] [address] [place] [address] Oct, Bipolar disorder, in partial remission, most recent episode hypomanic F31.71 ; Attention deficit hyperactivity disorder (ADHD), combined type F90.2 ; Anxiety disorder, unspecified type F41.9 and Encounter for drug screening Z02.83 [facility] [address] [id number] [address] [place] [address] Oct, Bipolar disorder, in partial remission, most recent episode hypomanic F31.71 [facility] [address] [id number] [address] [place] [id number] Oct, Bipolar disorder, in partial remission, most recent episode hypomanic F31.71 [facility] [address] [id number] [address] [place] [address] Aug, Bipolar disorder, in partial remission, most recent episode hypomanic F31.71 [facility] [address] [facility] [id number] [address] [place] [address] Aug, Bipolar disorder, in partial remission, most recent episode hypomanic F31.71 [facility] [address] [id number] [address] [place] [address] Aug, Bipolar disorder, in partial remission, most recent episode hypomanic F31.71 [facility] [address] [id number] [address] [place] [address] Jul, Bipolar disorder, in partial remission, most recent episode hypomanic F31.71 ; Attention deficit hyperactivity disorder (ADHD), combined type F90.2 and Anxiety disorder, unspecified type F41.9 [facility] [address] [id number] [address] [place] [address] Jul, Bipolar disorder, in partial remission, most recent episode hypomanic F31.71 [facility] [address] [id number] [address] [place] [address] Jun, Bipolar disorder, in partial remission, most recent episode hypomanic F31.71 [facility] [address] [id number] [address] [place] [address] May, Bipolar disorder, in partial remission, most recent episode hypomanic F31.71 [facility] [address] [facility] [id number] [address] [place] [address] May, Bipolar disorder, in partial remission, most recent episode hypomanic F31.71 [facility] [address] [facility] [id number] [address] [place] [address] Apr, [facility] [address] [facility] [id number] [address] [place] [address] Apr, Bipolar disorder, in partial remission, most recent episode hypomanic F31.71 ; Attention deficit hyperactivity disorder (ADHD), combined type F90.2 ; Anxiety disorder, unspecified type F41.9 and Cannabis abuse F12.10 [facility] [address] [place] [id number] [address] [place] [address] Apr, Attention deficit hyperactiv ity disorder (ADHD), combined type F90.2 [facility] [address] [facility] [id number] [address] [place] [address] Mar, Attention deficit hyperactiv ity disorder (ADHD), combined type F90.2 [facility] [address] [facility] [id number] [address] [place] [id number] 14 Mar, 2017 Anxiety disorder, unspecifie d type F41.9 [facility] [address] [facility] [id number] [address] [place] [address] Jan, Attention deficit hyperactiv ity disorder (ADHD), combined type F90.2 [facility] [address] [facility] [id number] [address] [place] [address] Jan, Anxiety disorder, unspecifie d type F41.9 [facility] [address] [facility] [id number] [address] [place] [address] Jan, Other chronic pain G89.29 ; Chronic hepatitis C without hepatic coma B18.2 and Bipolar 1 disorder F31.9 [facility] [address] [place] [id number] [address] [place] [address] Dec, Attention deficit hyperactiv ity disorder (ADHD), combined type F90.2 [facility] [address] [place] [id number] [place] [address] Dec, Bipolar disorder, in partial remission, most recent episode hypomanic F31.71 ; Attention deficit hyperactivity disorder (ADHD), combined type F90.2 and Anxiety disorder, unspecified type F41.9 [place] [address] [address] Dec, Bipolar disorder, in partial remission, most recent episode hypomanic F31.71 ; Attention deficit hyperactivity disorder (ADHD), combined type F90.2 and Anxiety disorder, unspecified type F41.9 [place] [address] [address] Dec, Bipolar 1 disorder F31.9 and Attention deficit R41.840 [place] [address] [address] Oct, Other chronic pain G89.29 ; Alopecia L65.9 and Screening, lipid Z13.220 [place] [address] [address] Oct, [place] [address] [address] Aug, [place] [address] [address] Aug, Eustachian tube dysfunction, right H69.81 ; Vertigo R42 and Other chronic pain G89.29 [place] [address] [address] Aug, [place] [address] [address] Jun, [place] [address] [address] Jun, Low back pain M54.5 and Othe r chronic pain G89.29 [facility] [address] [facility] [id number] [address] [place] [address] Jun, [facility] [address] [facility] [id number] [address] [place] [address] May, [facility] [address] [facility] [id number] [address] [place] [address] Jan, [facility] [address] [facility] [id number] [address] [place] [address] Dec, [facility] [address] [facility] [id number] [address] [place] [address] Dec, [facility] [address] [facility] [id number] [address] [place] [address] Jun, [facility] [address] [place] [id number] [address] [place] [address] Apr, Eustachian tube dysfunction, unspecified laterality H69.80 ; Hot flashes N95.1 and Encounter for immunization Z23 [facility] [address] [facility] [id number] [address] [place] [address] Jan, [facility] [address] [facility] [id number] [address] [place] [address] Jan, [facility] [address] [facility] [id number] [address] [place] [address] Jan, [facility] [address] [facility] [id number] [address] [place] [address] Jan, [facility] [address] [facility] [id number] [address] [place] [address] Jan, Encounter to establish care V65.8 ; Bipolar 1 disorder 296.7 ; Abdominal pain 789.00 ; Constipation 564.00 ; Hard of hearing 389.9 and Drug abuse 305.90 [facility] [address] [facility] [id number] [address] [place] [address] Dec, [facility] [address] [id number] [address] [place] [address], [place] [address] October, [facility] [address] [id number] [address] [place] [address], [place] [address] October, [facility] [address] [id number] [address] [place] [address], [place] [address] Oct, [facility] [address] [id number] [address] [place] [address], [place] [address] Oct, [facility] [address] [id number] [address] [place] [address], [place] [address] Oct, [facility] [address] [id number] [address] [place] [address], [place] [address] Aug, [facility] [address] [id number] [address] [place] [address], [place] [address] Aug, [facility] [address] [id number] [address] [place] [address], [place] [address] Aug, [facility] [address] [id number] [address] [place] [address], [place] [address] Aug, [facility] [address] [id number] [address] [place] [address], [place] [address] Aug, [facility] [address] [id number] [address] [place] [address], [place] [address] Aug, [facility] [address] [id number] [address] [place] [address] Aug, [facility] [address] [id number] [address] [place] [address], [place] [address] Aug, [facility] [address] [id number] [address] [place] [address], [place] [address] Aug, [facility] [address] [id number] [address] [place] [address], [place] [address] Aug, [facility] [address] [id number] [address] [place] [address], [place] [address] Aug, 2014 [facility] [address] [id number] [address] [place] [address], [place] [address] Aug, [facility] [address] [id number] [address] [place] [address], [place] [address] Aug, 2014 [facility] [address] [id number] [address] [place] [address], [place] [address] Aug, [facility] [address] [id number] [address] [place] [address], [place] [address] Aug, [facility] [address] [id number] [address] [place] [address], [place] [address] Jul, [facility] [address] [id number] [address] [place] [address], [place] [address] Jul, [facility] [address] [id number] [address] [place] [address], [place] [address] Jul, [facility] [address] [id number] [address] [place] [address], [place] [address] Jul, [facility] [address] [id number] [address] [place] [address], [place] [address] Jul, [facility] [address] [id number] [address] [place] [address], [place] [address] Jul, [facility] [address] [id number] [address] [place] [address], [place] [address] Jul, [facility] [address] [id number] [address] [place] [address], [place] [address] Jul, [facility] [address] [id number] [address] [place] [address], [place] [address] Jun, [facility] [address] [id number] [address] [place] [address], [place] [address] Jun, [facility] [address] [id number] [address] [place] [address], [place] [address] Jun, [facility] [address] [id number] [address] [place] [address], [place] [address] Jun, [facility] [address] [id number] [address] [place] [address], [place] [address] Jun, [facility] [address] [id number] [address] [place] [address], [place] [address] Jun, [facility] [address] [id number] [address] [place] [address], [place] [address] Jun, [facility] [address] [id number] [address] [place] [address], [place] [address] Jun, [facility] [address] [id number] [address] [place] [address], [place] [address] Jun, [facility] [address] [id number] [address] [place] [address], [place] [address] Jun, [facility] [address] [id number] [address] [place] [address], [place] [address] Jun, [facility] [address] [id number] [address] [place] [address], [place] [address] May, [facility] [address] [id number] [address] [place] [address], [place] [address] May, [facility] [address] [id number] [address] [place] [address], [place] [address] May, [facility] [address] [id number] [address] [place] [address], [place] [address] May, [facility] [address] [id number] [address] [place] [address], [place] [address] May, [facility] [address] [id number] [address] [place] [address], [place] [address] May, [facility] [address] [id number] [address] [place] [address], [place] [address] May, [facility] [address] [id number] [address] [place] [address], [place] [address] Apr, [facility] [address] [id number] [address] [place] [address], [place] [address] Apr, [facility] [address] [id number] [address] [place] [address], [place] [address] Apr, [facility] [address] [id number] [address] [place] [address], [place] [address] Apr, [facility] [address] [id number] [address] [place] [address], [place] [address] Apr, [facility] [address] [id number] [address] [place] [address], [place] [address] Apr, [facility] [address] [id number] [address] [place] [address], [place] [address] Mar, [facility] [address] [id number] [address] [place] [address], [place] [address] Mar, [facility] [address] [id number] [address] [place] [address], [place] [address] Mar, [facility] [address] [id number] [address] [place] [address], [place] [address] Mar, [facility] [address] [id number] [address] [place] [address], [place] [address] Mar, [facility] [address] [id number] [address] [place] [address], [place] [address] Mar, [facility] [address] [id number] [address] [place] [address], [place] [address] Jan, [facility] [address] [id number] [address] [place] [address], [place] [address] Jan, [facility] [address] [id number] [address] [place] [address], [place] [address] Jan, [facility] [address] [id number] [address] [place] [address], [place] [address] Jan, [facility] [address] [id number] [facility] [place] [address] Dec, [facility] [address] [id number] [facility] [place] [address] Dec, [facility] [address] [id number] [address] [place] [address], [place] [address] Dec, [facility] [address] [id number] [address] [place] [address], [place] [address] Dec, [facility] [address] [id number] [address] [place] [address], [place] [address] Dec, [facility] [address] [id number] [address] [place] [address], [place] [address] Dec, [facility] [address] [id number] [address] [place] [address], [place] [address] Dec, [facility] [address] [id number] [address] [place] [address], [place] [address] Dec, [facility] [address] [id number] [address] [place] [address], [place] [address] Dec, [facility] [address] [id number] [address] [place] [address], [place] [address] Dec, [facility] [address] [id number] [address] [place] [address], [place] [address] Dec, [facility] [address] [id number] [address] [place] [address], [place] [address] Dec, [facility] [address] [id number] [address] [place] [address], [place] [address] October, [facility] [address] [id number] [address] [place] [address], [place] [address] October, [facility] [address] [id number] [address] [place] [address], [place] [address] October, [facility] [address] [id number] [address] [place] [address], [place] [address] October, [facility] [address] [id number] [address] [place] [address], [place] [address] October, [facility] [address] [id number] [address] [place] [address], [place] [address] October, [facility] [address] [id number] [address] [place] [address], [place] [address] Oct, [facility] [address] [id number] [address] [place] [address], [place] [address] Oct, [facility] [address] [id number] [address] [place] [address], [place] [address] Oct, [facility] [address] [id number] [address] [place] [address], [place] [address] Oct, [facility] [address] [id number] [address] [place] [address], [place] [address] Oct, [facility] [address] [id number] [address] [place] [address], [place] [address] Oct, [facility] [address] [id number] [address] [place] [address], [place] [address] Oct, [facility] [address] [id number] [address] [place] [address], [place] [address] Oct, [facility] [address] [id number] [address] [place] [address], [place] [address] Oct, [facility] [address] [id number] [address] [place] [address], [place] [address] Oct, [facility] [address] [id number] [address] [place] [address], [place] [address] Oct, [facility] [address] [id number] [address] [place] [address], [place] [address] Oct, [facility] [address] [id number] [address] [place] [address], [place] [address] Aug, [facility] [address] [id number] [address] [place] [address], [place] [address] 15 Aug, 2013 [facility] [address] [id number] [address] [place] [address], [place] [address] 11 Aug, 2013 [facility] [address] [id number] [address] [place] [address], [place] [address] 11 Aug, 2013 [facility] [address] [id number] [address] [place] [address], [place] [address] 05 Aug, 2013 [facility] [address] [id number] [address] [place] [address], [place] [address] 05 Aug, 2013 [facility] [address] [id number] [address] [place] [address], [place] [address] 04 Aug, 2013 [facility] [address] [id number] [address] [place] [address], [place] [address] 03 Aug, 2013 [facility] [address] [id number] [address] [place] [address], [place] [address] 03 Aug, 2013 [facility] [address] [id number] [address] [place] [address], [place] [address] 24 Aug, 2013 [facility] [address] [id number] [address] [place] [address], [place] [address] 24 Aug, 2013 [facility] [address] [id number] [address] [place] [address], [place] [address] 21 Aug, 2013 [facility] [address] [id number] [address] [place] [address], [place] [address] Aug, [facility] [address] [id number] [address] [place] [address], [place] [address] 20 Aug, 2013 [facility] [address] [id number] [address] [place] [address], [place] [address] 14 Aug, 2013 [facility] [address] [id number] [address] [place] [address], [place] [address] 14 Aug, 2013 [facility] [address] [id number] [address] [place] [address], [place] [address] 14 Aug, 2013 [facility] [address] [id number] [address] [place] [address], [place] [address] 14 Aug, 2013 [facility] [address] [id number] [address] [place] [address], [place] [address] 07 Aug, 2013 [facility] [address] [id number] [address] [place] [address], [place] [address] Aug, [facility] [address] [id number] [address] [place] [address], [place] [address] Aug, [facility] [address] [id number] [address] [place] [address], [place] [address] Aug, [facility] [address] [id number] [address] [place] [address], [place] [address] Aug, [facility] [address] [id number] [address] [place] [address], [place] [address] Aug, [facility] [address] [id number] [address] [place] [address], [place] [address] Aug, [facility] [address] [id number] [address] [place] [address], [place] [address] Jul, [facility] [address] [id number] [address] [place] [address], [place] [address] Jul, [facility] [address] [id number] [address] [place] [address], [place] [address] Jul, [facility] [address] [id number] [address] [place] [address], [place] [address] Jul, [facility] [address] [id number] [address] [place] [address], [place] [address] Jul, [facility] [address] [id number] [address] [place] [address], [place] [address] Jul, [facility] [address] [id number] [address] [place] [address], [place] [address] Jul, [facility] [address] [id number] [address] [place] [address], [place] [address] Jul, [facility] [address] [id number] [address] [place] [address], [place] [address] Jul, [facility] [address] [id number] [address] [place] [address], [place] [address] Jul, [facility] [address] [id number] [address] [place] [address], [place] [address] Jul, [facility] [address] [id number] [address] [place] [address], [place] [address] Jul, [facility] [address] [id number] [address] [place] [address], [place] [address] Jul, [facility] [address] [id number] [address] [place] [address], [place] [address] Jul, [facility] [address] [id number] [address] [place] [address], [place] [address] Jul, [facility] [address] [id number] [address] [place] [address], [place] [address] Jul, [facility] [address] [id number] [address] [place] [address], [place] [address] Jul, [facility] [address] [id number] [address] [place] [address], [place] [address] Jul, [facility] [address] [id number] [address] [place] [address], [place] [address] Jul, [facility] [address] [id number] [address] [place] [address], [place] [address] Jul, [facility] [address] [id number] [address] [place] [address], [place] [address] Jun, [facility] [address] [id number] [address] [place] [address], [place] [address] Jun, [facility] [address] [id number] [address] [place] [address], [place] [address] Jun, [facility] [address] [id number] [address] [place] [address], [place] [address] 30 Jun, 2013 [facility] [address] [id number] [address] [place] [address], [place] [address] Jun, [facility] [address] [id number] [address] [place] [address], [place] [address] Jun, [facility] [address] [id number] [address] [place] [address], [place] [address] Jun, [facility] [address] [id number] [address] [place] [address], [place] [address] Jun, [facility] [address] [id number] [address] [place] [address], [place] [address] Jun, [facility] [address] [id number] [address] [place] [address], [place] [address] Jun, [facility] [address] [id number] [address] [place] [address], [place] [address] Jun, [facility] [address] [id number] [address] [place] [address], [place] [address] Jun, [facility] [address] [id number] [address] [place] [address], [place] [address] Jun, [facility] [address] [id number] [address] [place] [address], [place] [address] Jun, [facility] [address] [id number] [address] [place] [address], [place] [address] Jun, [facility] [address] [id number] [address] [place] [address], [place] [address] 18 Jun, 2013 [facility] [address] [id number] [address] [place] [address], [place] [address] Jun, [facility] [address] [id number] [address] [place] [address], [place] [address] 17 Jun, 2013 [facility] [address] [id number] [address] [place] [address], [place] [address] 17 Jun, 2013 [facility] [address] [id number] [address] [place] [address], [place] [address] Jun, [facility] [address] [id number] [address] [place] [address], [place] [address] Jun, [facility] [address] [id number] [address] [place] [address], [place] [address] Jun, [facility] [address] [id number] [address] [place] [address], [place] [address] Jun, [facility] [address] [id number] [address] [place] [address], [place] [address] Jun, [facility] [address] [id number] [address] [place] [address], [place] [address] [address], [facility] [address] [id number] [address] [place] [address], [place] [address] Jun, [facility] [address] [id number] [address] [place] [address], [place] [address] Jun, [facility] [address] [id number] [address] [place] [address], [place] [address] May, [facility] [address] [id number] [address] [place] [address], [place] [address] May, [facility] [address] [id number] [address] [place] [address], [place] [address] May, [facility] [address] [id number] [address] [place] [address], [place] [address] May, [facility] [address] [id number] [address] [place] [address], [place] [address] May, [facility] [address] [id number] [address] [place] [address], [place] [address] May, [facility] [address] [id number] [address] [place] [address], [place] [address] Apr, [facility] [address] [id number] [address] [place] [address], [place] [address] 30 Apr, 2012 [facility] [address] [id number] [address] [place] [address], [place] [address] 30 Apr, 2012 [facility] [address] [id number] [address] [place] [address], [place] [address] 30 Apr, 2012 [facility] [address] [id number] [address] [place] [address], [place] [address] Apr, [facility] [address] [id number] [address] [place] [address], [place] [address] 15 Apr, 2013 [facility] [address] [id number] [address] [place] [address], [place] [address] Apr, [facility] [address] [id number] [address] [place] [address], [place] [address] Apr, [facility] [address] [id number] [address] [place] [address], [place] [address] 26 Sep, 2012 [facility] [address] [id number] [address] [place] [address], [place] [address] 24 Sep, 2012 [facility] [address] [id number] [address] [place] [address] 17 Sep, 2012 [facility] [address] [id number] [address] [place] [address] 17 Sep, 2012 [facility] [address] [id number] [address] [place] [address] 11 Sep, 2012 [facility] [address] [id number] [address] [place] [address], [place] [address] 10 Sep, 2012 [facility] [address] [id number] [address] [place] [address] 05 Sep, 2012 [facility] [address] [id number] [address] [place] [address] 04 Sep, 2012 [facility] [address] [id number] [address] [place] [address] Jan, [facility] [address] [id number] [address] [place] [address], [place] [address] Jan, [facility] [address] [id number] [address] [place] [address], [place] [address] Jan, [facility] [address] [id number] [address] [place] [address], [place] [address] Jan, [facility] [address] [id number] [address] [place] [address], [place] [address] Jan, [facility] [address] [id number] [address] [place] [address], [place] [address] Jan, [facility] [address] [id number] [address] [place] [address], [place] [address] Dec, [facility] [address] [id number] [address] [place] [address], [place] [address] Dec, [facility] [address] [id number] [address] [place] [address], [place] [address] Dec, [facility] [address] [id number] [address] [place] [address], [place] [address] Dec, [facility] [address] [id number] [address] [place] [address], [place] [address] Dec, [facility] [address] [id number] [address] [place] [address], [place] [address] 17 Dec, 2012 [facility] [address] [id number] [address] [place] [address], [place] [address] 16 Dec, 2012 [facility] [address] [id number] [address] [place] [address], [place] [address] 16 Dec, 2012 [facility] [address] [id number] [address] [place] [address], [place] [address] 15 Dec, 2012 [facility] [address] [id number] [address] [place] [address], [place] [address] 10 Dec, 2012 [facility] [address] [id number] [address] [place] [address], [place] [address] [address], [address] [facility] [address] [id number] [address] [place] [address], [place] [address] Dec, [facility] [address] [id number] [address] [place] [address], [place] [address] Dec, [facility] [address] [id number] [address] [place] [address], [place] [address] Dec, [facility] [address] [id number] [address] [place] [address], [place] [address] Dec, [facility] [address] [id number] [address] [place] [address], [place] [address] Dec, [facility] [address] [id number] [address] [place] [address], [place] [address] October, [facility] [address] [id number] [address] [place] [address], [place] [address] October, [facility] [address] [id number] [address] [place] [address], [place] [address] October, [facility] [address] [id number] [address] [place] [address], [place] [address] October, [facility] [address] [id number] [address] [place] [address], [place] [address] October, [facility] [address] [id number] [address] [place] [address], [place] [address] October, [facility] [address] [id number] [address] [place] [address], [place] [address] October, [facility] [address] [id number] [address] [place] [address], [place] [address] Oct, [facility] [address] [id number] [address] [place] [address], [place] [address] Oct, [facility] [address] [id number] [address] [place] [address], [place] [address] Oct, [facility] [address] [id number] [address] [place] [address], [place] [address] 23 Oct, 2012 [facility] [address] [id number] [address] [place] [address], [place] [address] Oct, [facility] [address] [id number] [address] [place] [address], [place] [address] 18 Oct, 2012 [facility] [address] [id number] [address] [place] [address], [place] [address] 17 Oct, 2012 [facility] [address] [id number] [address] [place] [address], [place] [address] 15 Oct, 2012 [facility] [address] [id number] [address] [place] [address], [place] [address] Oct, [facility] [address] [id number] [address] [place] [address], [place] [address] Oct, [facility] [address] [id number] [address] [place] [address], [place] [address] Oct, [facility] [address] [id number] [address] [place] [address], [place] [address] Oct, [facility] [address] [id number] [address] [place] [address], [place] [address] Aug, [facility] [address] [id number] [address] [place] [address], [place] [address] Aug, [facility] [address] [id number] [address] [place] [address], [place] [address] Aug, [facility] [address] [id number] [address] [place] [address], [place] [address] 06 Aug, 2012 [facility] [address] [id number] [address] [place] [address], [place] [address] 05 Aug, 2012 [facility] [address] [id number] [address] [place] [address], [place] [address] 05 Aug, 2012 [facility] [address] [id number] [address] [place] [address], [place] [address] [address], [address] [facility] [address] [id number] [address] [place] [address], [place] [address] 14 Aug, 2012 [facility] [address] [id number] [address] [place] [address], [place] [address] [address], [address] [facility] [address] [id number] [address] [place] [address], [place] [address] 11 Aug, 2012 [facility] [address] [id number] [address] [place] [address], [place] [address] 29 Jul, 2012 [facility] [address] [id number] [address] [place] [address], [place] [address] [address], [address] [facility] [address] [id number] [address] [place] [address], [place] [address] [address], [address] [facility] [address] [id number] [address] [place] [address], [place] [address] [address], [address] [facility] [address] [id number] [address] [place] [address], [place] [address] [address], [address] [facility] [address] [id number] [address] [place] [address], [place] [address] [address], [address] [facility] [address] [id number] [address] [place] [address], [place] [address] [address], [address] [facility] [address] [id number] [address] [place] [address], [place] [address] [address], [address] [facility] [address] [id number] [address] [place] [address], [place] [address] 14 Jun, 2012 [facility] [address] [id number] [address] [place] [address], [place] [address] 14 Jun, 2012 [facility] [address] [id number] [address] [place] [address], [place] [address] [address], [address] [facility] [address] [id number] [address] [place] [address], [place] [address] [address], [address] [facility] [address] [id number] [address] [place] [address], [place] [address] Jun, [facility] [address] [id number] [address] [place] [address], [place] [address] Jun, [facility] [address] [id number] [address] [place] [address], [place] [address] Jun, [facility] [address] [id number] [address] [place] [address], [place] [address] Jun, [facility] [address] [id number] [address] [place] [address], [place] [address] Jun, [facility] [address] [id number] [address] [place] [address], [place] [address] Jun, [facility] [address] [id number] [address] [place] [address], [place] [address] Jun, [facility] [address] [id number] [address] [place] [address], [place] [address] Jun, [facility] [address] [id number] [address] [place] [address], [place] [address] Jun, [facility] [address] [id number] [address] [place] [address], [place] [address] Jun, [facility] [address] [id number] [address] [place] [address], [place] [address] Jun, [facility] [address] [id number] [address] [place] [address], [place] [address] Jun, [facility] [address] [id number] [address] [place] [address], [place] [address] Jun, [facility] [address] [id number] [address] [place] [address], [place] [address] Jun, [facility] [address] [id number] [address] [place] [address], [place] [address] May, [facility] [address] [id number] [address] [place] [address] May, [facility] [address] [id number] [address] [place] [address], [place] [address] May, [facility] [address] [id number] [address] [place] [id number] May, [facility] [address] [id number] [address] [place] [id number] May, [facility] [address] [id number] [address] [place] [id number] May, [facility] [address] [id number] [address] [place] [address], [place] [address] May, [facility] [address] [id number] [address] [place] [id number] May, [facility] [address] [id number] [address] [place] [id number] Apr, [facility] [address] [id number] [address] [place] [id number] Apr, [facility] [address] [id number] [address] [place] [id number] Apr, [facility] [address] [id number] [address] [place] [id number] Apr, [facility] [address] [id number] [address] [place] [id number] Apr, [facility] [address] [id number] [address] [place] [id number] Apr, [facility] [address] [id number] [address] [place] [id number] Apr, [facility] [address] [id number] [address] [place] [id number] Apr, [facility] [address] [id number] [address] [place] [id number] Apr, [facility] [address] [id number] [address] [place] [address], [place] [address] 08 Apr, 2012 [facility] [address] [id number] [address] [place] [address], [place] [address] Apr, [facility] [address] [id number] [address] [place] [address], [place] [address] Apr, [facility] [address] [id number] [address] [place] [address], [place] [id number] 19 Mar, 2012 [facility] [address] [id number] [address] [place] [address], [place] [address] 18 Mar, 2012 [facility] [address] [id number] [address] [place] [address], [place] [address] Mar, [facility] [address] [id number] [address] [place] [address], [place] [address] Mar, [facility] [address] [id number] [address] [place] [id number] Mar, [facility] [address] [id number] [address] [place] [id number] Mar, [facility] [address] [id number] [address] [place] [address], [place] [address] Mar, [facility] [address] [id number] [address] [place] [address], [place] [address] Jan, [facility] [address] [id number] [address] [place] [address], [place] [address] Jan, [facility] [address] [id number] [address] [place] [id number] Jan, [facility] [address] [id number] [address] [place] [id number] Jan, [facility] [address] [id number] [address] [place] [address], [place] [address] Jan, [facility] [address] [id number] [address] [place] [address], [place] [address] 16 Feb, 2012 [facility] [address] [id number] [address] [place] [address], [place] [address] 16 Feb, 2012 [facility] [address] [id number] [address] [place] [address], [place] [address] Jan, [facility] [address] [id number] [address] [place] [address], [place] [address] Jan, [facility] [address] [id number] [address] [place] [address], [place] [address] Jan, [facility] [address] [id number] [address] [place] [address], [place] [address] Jan, [facility] [address] [id number] [address] [place] [address], [place] [address] Dec, [facility] [address] [id number] [address] [place] [address], [place] [address] Dec, [facility] [address] [id number] [address] [place] [address], [place] [address] Dec, [facility] [address] [id number] [address] [place] [address], [place] [address] Dec, [facility] [address] [id number] [address] [place] [address], [place] [address] Dec, [facility] [address] [id number] [address] [place] [address], [place] [address] Dec, [facility] [address] [id number] [address] [place] [address], [place] [address] 18 Jan, 2012 [facility] [address] [id number] [address] [place] [address], [place] [address] 17 Jan, 2012 [facility] [address] [id number] [address] [place] [address], [place] [address] 16 Jan, 2012 [facility] [address] [id number] [address] [place] [address], [place] [address] 13 Jan, 2012 [facility] [address] [address] [id number] [address] [place] [address], [place] [address] Dec, [facility] [address] [id number] [address] [place] [address], [place] [address] Dec, [facility] [address] [id number] [address] [place] [address], [place] [address] Dec, [facility] [address] [id number] [address] [place] [address], [place] [address] Dec, [facility] [address] [id number] [address] [place] [address], [place] [address] Dec, [facility] [address] [id number] [address] [place] [address], [place] [address] Dec, [facility] [address] [id number] [address] [place] [address], [place] [address] 15 Dec, 2011 [facility] [address] [id number] [address] [place] [address], [place] [address] Dec, [facility] [address] [id number] [address] [place] [address], [place] [address] Dec, [facility] [address] [id number] [address] [place] [address], [place] [address] October, [facility] [address] [id number] [address] [place] [address], [place] [address] October, [facility] [address] [id number] [address] [place] [address], [place] [address] October, [facility] [address] [id number] [address] [place] [address], [place] [address] October, [facility] [address] [id number] [address] [place] [address], [place] [address] October, [facility] [address] [id number] [address] [place] [address], [place] [address] October, [facility] [address] [id number] [address] [place] [address], [place] [address] Oct, [facility] [address] [id number] [address] [place] [address], [place] [address] 24 Oct, 2011 [facility] [address] [id number] [address] [place] [address], [place] [address] Oct, [facility] [address] [id number] [address] [place] [address], [place] [address] Oct, [facility] [address] [id number] [address] [place] [address], [place] [address] 04 Oct, 2011 [facility] [address] [id number] [address] [place] [address], [place] [address] Oct, [facility] [address] [id number] [address] [place] [address], [place] [address] Oct, [facility] [address] [id number] [address] [place] [address], [place] [address] Aug, [facility] [address] [id number] [address] [place] [address], [place] [address] 29 Sep, 2011 [facility] [address] [id number] [address] [place] [address], [place] [address] Aug, [facility] [address] [id number] [address] [place] [address], [place] [address] Aug, [facility] [address] [id number] [address] [place] [address], [place] [address] Aug, [facility] [address] [id number] [address] [place] [address], [place] [address] Aug, [facility] [address] [id number] [address] [place] [address], [place] [address] Aug, [facility] [address] [id number] [address] [place] [address], [place] [address] Aug, [facility] [address] [id number] [address] [place] [address], [place] [address] 08 Aug, 2011 [facility] [address] [id number] [address] [place] [address], [place] [address] Jul, [facility] [address] [id number] [address] [place] [address], [place] [address] Jul, [facility] [address] [id number] [address] [place] [address], [place] [address] Jul, [facility] [address] [id number] [address] [place] [address], [place] [address] Jul, [facility] [address] [id number] [address] [place] [address], [place] [address] Jun, [facility] [address] [id number] [address] [place] [address], [place] [address] Jun, [facility] [address] [id number] [address] [place] [address], [place] [address] May, [facility] [address] [id number] [address] [place] [address], [place] [address] May, [facility] [address] [id number] [address] [place] [address], [place] [address] May, [facility] [address] [id number] [address] [place] [address], [place] [address] May, [facility] [address] [id number] [address] [place] [address], [place] [address] May, [facility] [address] [id number] [address] [place] [address], [place] [address] Apr, [facility] [address] [id number] [address] [place] [address], [place] [address] Apr, [facility] [address] [id number] [address] [place] [address], [place] [address] Apr, [facility] [address] [id number] [address] [place] [address], [place] [address] Jan, [facility] [address] [id number] [address] [place] [address], [place] [address] Dec, [facility] [address] [id number] [address] [place] [address] October, [facility] [address] [facility] [id number] [address] [place] [address] Jun, [facility] [address] [facility] [id number] [address] [place] [id number] Apr, [facility] [address] [facility] [id number] [address] [place] [address] Apr, [facility] [address] [facility] [id number] [address] [place] [address] Apr, [facility] [address] [facility] [id number] [address] [place] [id number] Jun, IMMUNIZATIONS No Known Immunizations SOCIAL HISTORY Never Assessed REASON FOR VISIT Lab results PLAN OF CARE VITAL SIGNS MEDICATIONS Unknown Medications RESULTS No Results PROCEDURES No Known procedures INSTRUCTIONS MEDICATIONS ADMINISTERED No Known Medications MEDICAL (GENERAL) HISTORY Type Description Date Medical History Psychiatric disorder Medical History Hard of hearing Surgical History Neofibrous tumor Surgical History back injection Hospitalization History Intestinal blockage Hospitalization History past psychiatric hospitalizations x2
--- OUTSIDE RECORDS SUMMARY | 2020-01-25 13:08 | XMS REPORT ---
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 Name Role Phone FRANCINE, KWAME Unavailable PROBLEMS Type Condition ICD9-CM Code [id number] Code Onset Dates Condition S tatus SNOMED Code Problem Attention deficit R41.840 Active 76 342444 Problem Cannabis abuse F12.10 Active 19509 009 Problem Chronic hepatitis C without hepatic coma B18.2 Active 783114840 Problem Attention deficit hyperactivity disorder (ADHD), combi luciano type F90.2 Active 36382265 Problem Bipolar disorder, in partial remission, most rec ent episode hypomanic F31.71 Active 696324007 Problem H/O laminectomy Z98.89 Active 1616 21488 Problem Bipolar 1 disorder F31.9 Active 3 68061745 Problem Anxiety disorder, unspecified type F41.9 Active 232472909 Problem Other chronic pain G89.29 Active 8 3154324 ALLERGIES No Information ENCOUNTERS Encounter Location Date Diagnosis [facility] [address] [id number] [address] [place] [address] Apr, [facility] [address] [id number] [address] [place] [address] Apr, Bipolar disorder, in partial remission, most recent episode hypomanic F31.71 ; Attention deficit hyperactivity disorder (ADHD), combined type F90.2 ; Anxiety disorder, unspecified type F41.9 and 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 Z79.899 [facility] [address] [facility] [id number] [address] [place] [address] Apr, Bipolar disorder, in partial remission, most recent episode hypomanic F31.71 [facility] [address] [id number] [address] [place] [address] Apr, Bipolar disorder, in partial remission, most recent episode hypomanic F31.71 [facility] [address] [id number] [address] [place] [address] Mar, [facility] [address] [id number] [address] [place] [address] Mar, Bipolar disorder, in partial remission, most recent episode hypomanic F31.71 ; Encounter for immunization Z23 and Low back pain M54.5 [facility] [address] [id number] [address] [place] [address] Mar, Bipolar disorder, in partial remission, most recent episode hypomanic F31.71 [facility] [address] [id number] [address] [place] [address] Mar, Bipolar disorder, in partial remission, most recent episode hypomanic F31.71 [facility] [address] [id number] [address] [place] [address] Jan, Bipolar disorder, in partial remission, most recent episode hypomanic F31.71 [facility] [address] [id number] [address] [place] [address] Jan, Bipolar disorder, in partial remission, most recent episode hypomanic F31.71 [facility] [address] [id number] [address] [place] [address] Dec, Bipolar disorder, in partial remission, most recent episode hypomanic F31.71 [facility] [address] [facility] [id number] [address] [place] [address] Dec, Bipolar disorder, in partial remission, most recent episode hypomanic F31.71 ; Attention deficit hyperactivity disorder (ADHD), combined type F90.2 ; Anxiety disorder, unspecified type F41.9 and 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 Z79.899 [facility] [address] [id number] [address] [place] [address] Dec, Bipolar disorder, in partial remission, most recent episode hypomanic F31.71 [facility] [address] [id number] [address] [place] [address] Dec, Bipolar disorder, in partial remission, most recent episode hypomanic F31.71 [facility] [address] [facility] [id number] [address] [place] [address] October, Bipolar disorder, in partial remission, most recent episode hypomanic F31.71 [facility] [address] [facility] [id number] [address] [place] [address] October, [facility] [address] [facility] [id number] [address] [place] [address] October, [facility] [address] [facility] [id number] [address] [place] [address] Oct, Bipolar disorder, in partial remission, most recent episode hypomanic F31.71 ; Attention deficit hyperactivity disorder (ADHD), combined type F90.2 ; Anxiety disorder, unspecified type F41.9 and Encounter for drug screening Z02.83 [facility] [address] [facility] [id number] [address] [place] [address] Oct, Bipolar disorder, in partial remission, most recent episode hypomanic F31.71 [facility] [address] [facility] [id number] [address] [place] [address] Oct, Bipolar disorder, in partial remission, most recent episode hypomanic F31.71 [facility] [address] [facility] [id number] [address] [place] [address] Aug, Bipolar disorder, in partial remission, most recent episode hypomanic F31.71 [facility] [address] [facility] [id number] [address] [place] [address] Aug, Bipolar disorder, in partial remission, most recent episode hypomanic F31.71 [facility] [address] [facility] [id number] [address] [place] [address] Aug, Bipolar disorder, in partial remission, most recent episode hypomanic F31.71 [facility] [address] [facility] [id number] [address] [place] [address] Jul, Bipolar disorder, in partial remission, most recent episode hypomanic F31.71 ; Attention deficit hyperactivity disorder (ADHD), combined type F90.2 and Anxiety disorder, unspecified type F41.9 [facility] [address] [id number] [address] [place] [address] Jul, Bipolar disorder, in partial remission, most recent episode hypomanic F31.71 [facility] [address] [id number] [address] [place] [address] Jun, Bipolar disorder, in partial remission, most recent episode hypomanic F31.71 [facility] [address] [id number] [address] [place] [address] May, Bipolar disorder, in partial remission, most recent episode hypomanic F31.71 [facility] [address] [id number] [address] [place] [address] May, Bipolar disorder, in partial remission, most recent episode hypomanic F31.71 [facility] [address] [id number] [address] [place] [address] Apr, [facility] [address] [id number] [address] [place] [address] Apr, Bipolar disorder, in partial remission, most recent episode hypomanic F31.71 ; Attention deficit hyperactivity disorder (ADHD), combined type F90.2 ; Anxiety disorder, unspecified type F41.9 and Cannabis abuse F12.10 [facility] [address] [id number] [address] [place] [address] Apr, Attention deficit hyperactiv ity disorder (ADHD), combined type F90.2 [facility] [address] [id number] [address] [place] [address] Mar, Attention deficit hyperactiv ity disorder (ADHD), combined type F90.2 [facility] [address] [id number] [address] [place] [address] 14 Mar, 2017 Anxiety disorder, unspecifie d type F41.9 [facility] [address] [id number] [address] [place] [address] Jan, Attention deficit hyperactiv ity disorder (ADHD), combined type F90.2 [facility] [address] [id number] [address] [place] [address] Jan, Anxiety disorder, unspecifie d type F41.9 [facility] [address] [facility] [id number] [address] [place] [address] Jan, Other chronic pain G89.29 ; Chronic hepatitis C without hepatic coma B18.2 and Bipolar 1 disorder F31.9 [facility] [address] [id number] [address] [place] [address] Dec, Attention deficit hyperactiv ity disorder (ADHD), combined type F90.2 [facility] [address] [facility] [id number] [address] [place] [address] Dec, Bipolar disorder, in partial remission, most recent episode hypomanic F31.71 ; Attention deficit hyperactivity disorder (ADHD), combined type F90.2 and Anxiety disorder, unspecified type F41.9 [facility] [address] [facility] [id number] [address] [place] [address] Dec, Bipolar disorder, in partial remission, most recent episode hypomanic F31.71 ; Attention deficit hyperactivity disorder (ADHD), combined type F90.2 and Anxiety disorder, unspecified type F41.9 [facility] [address] [facility] [id number] [address] [place] [address] Dec, Bipolar 1 disorder F31.9 and Attention deficit R41.840 [facility] [address] [facility] [id number] [address] [place] [address] Oct, Other chronic pain G89.29 ; Alopecia L65.9 and Screening, lipid Z13.220 [facility] [address] [facility] [id number] [address] [place] [address] Oct, [facility] [address] [facility] [id number] [address] [place] [address] Aug, [facility] [address] [id number] [address] [place] [address] Aug, Eustachian tube dysfunction, right H69.81 ; Vertigo R42 and Other chronic pain G89.29 [facility] [address] [id number] [address] [place] [address] Aug, [facility] [address] [id number] [address] [place] [address] Jun, [facility] [address] [id number] [address] [place] [address] Jun, Low back pain M54.5 and Othe r chronic pain G89.29 [facility] [address] [id number] [address] [place] [address] Jun, [facility] [address] [id number] [address] [place] [address] May, [facility] [address] [id number] [address] [place] [address] Jan, [facility] [address] [id number] [address] [place] [address] Dec, [facility] [address] [facility] [id number] [address] [place] [address] Dec, [facility] [address] [id number] [address] [place] [address] Jun, [facility] [address] [facility] [id number] [address] [place] [address] Apr, Eustachian tube dysfunction, unspecified laterality H69.80 ; Hot flashes N95.1 and Encounter for immunization Z23 [facility] [address] [id number] [address] [place] [address] Jan, [facility] [address] [id number] [address] [place] [address] Jan, [facility] [address] [id number] [address] [place] [address] Jan, [facility] [address] [id number] [address] [place] [address] Jan, [facility] [address] [facility] [id number] [address] [place] [address] Jan, Encounter to establish care V65.8 ; Bipolar 1 disorder 296.7 ; Abdominal pain 789.00 ; Constipation 564.00 ; Hard of hearing 389.9 and Drug abuse 305.90 [facility] [address] [id number] [address] [place] [address] Dec, [facility] [address] [id number] [address] [place] [address] October, [facility] [address] [id number] [address] [place] [address] October, [facility] [address] [id number] [address] [place] [address] Oct, [facility] [address] [id number] [address] [place] [address] Oct, [facility] [address] [id number] [address] [place] [address] Oct, [facility] [address] [facility] [id number] [address] [place] [address] Aug, [facility] [address] [id number] [address] [place] [address] Aug, [facility] [address] [id number] [address] [place] [address] Aug, [facility] [address] [id number] [address] [place] [address] Aug, [facility] [address] [id number] [address] [place] [address] Aug, [facility] [address] [id number] [address] [place] [address] Aug, 2014 [facility] [address] [id number] [address] [place] [address], [place] [address] Aug, 2014 [facility] [address] [id number] [address] [place] [address], [place] [address] Aug, 2014 [facility] [address] [id number] [address] [place] [address], [place] [address] Aug, 2014 [facility] [address] [id number] [address] [place] [address], [place] [address] Aug, 2014 [facility] [address] [id number] [address] [place] [address], [place] [address] Aug, 2014 [facility] [address] [id number] [address] [place] [address], [place] [address] Aug, 2014 [facility] [address] [id number] [address] [place] [address], [place] [address] Aug, 2014 [facility] [address] [id number] [address] [place] [address], [place] [address] Aug, [facility] [address] [id number] [address] [place] [address], [place] [address] Aug, [facility] [address] [id number] [address] [place] [address], [place] [address] Jul, [facility] [address] [id number] [address] [place] [address], [place] [address] Jul, [facility] [address] [id number] [address] [place] [address], [place] [address] Jul, [facility] [address] [id number] [address] [place] [address], [place] [address] Jul, [facility] [address] [id number] [address] [place] [address], [place] [address] Jul, [facility] [address] [id number] [address] [place] [address], [place] [address] Jul, [facility] [address] [id number] [address] [place] [address], [place] [address] Jul, [facility] [address] [id number] [address] [place] [address], [place] [address] Jul, [facility] [address] [id number] [address] [place] [address], [place] [address] Jun, [facility] [address] [id number] [address] [place] [address], [place] [address] Jun, [facility] [address] [id number] [address] [place] [address], [place] [address] Jun, [facility] [address] [id number] [address] [place] [address], [place] [address] Jun, [facility] [address] [id number] [address] [place] [address], [place] [address] Jun, [facility] [address] [id number] [address] [place] [address], [place] [address] Jun, [facility] [address] [id number] [address] [place] [address], [place] [address] Jun, [facility] [address] [id number] [address] [place] [address], [place] [address] Jun, [facility] [address] [id number] [address] [place] [address], [place] [address] Jun, [facility] [address] [id number] [address] [place] [address], [place] [address] Jun, [facility] [address] [id number] [address] [place] [address], [place] [address] Jun, [facility] [address] [id number] [address] [place] [address], [place] [address] May, [facility] [address] [id number] [address] [place] [address], [place] [address] May, [facility] [address] [id number] [address] [place] [address], [place] [address] May, [facility] [address] [id number] [address] [place] [address], [place] [address] May, [facility] [address] [id number] [address] [place] [address], [place] [address] May, [facility] [address] [id number] [address] [place] [address], [place] [address] May, [facility] [address] [id number] [address] [place] [address], [place] [address] May, [facility] [address] [id number] [address] [place] [address], [place] [address] Apr, [facility] [address] [id number] [address] [place] [address], [place] [address] Apr, [facility] [address] [id number] [address] [place] [address], [place] [address] Apr, [facility] [address] [id number] [address] [place] [address], [place] [address] Apr, [facility] [address] [id number] [address] [place] [address], [place] [address] Apr, [facility] [address] [id number] [address] [place] [address], [place] [address] Apr, [facility] [address] [id number] [address] [place] [address], [place] [address] Mar, [facility] [address] [id number] [address] [place] [address], [place] [address] 29 Mar, 2014 [facility] [address] [id number] [address] [place] [address], [place] [address] Mar, [facility] [address] [id number] [address] [place] [address], [place] [address] Mar, [facility] [address] [id number] [address] [place] [address], [place] [address] 02 Mar, 2014 [facility] [address] [id number] [address] [place] [address], [place] [address] Mar, [facility] [address] [id number] [address] [place] [address], [place] [address] Jan, [facility] [address] [id number] [address] [place] [address], [place] [address] Jan, [facility] [address] [id number] [address] [place] [address], [place] [address] Jan, [facility] [address] [id number] [address] [place] [address], [place] [address] Jan, [facility] [address] [id number] [address] [place] [address], [place] [address] Dec, [facility] [address] [id number] [address] [place] [address], [place] [address] Dec, [facility] [address] [id number] [address] [place] [address], [place] [address] Dec, [facility] [address] [id number] [address] [place] [address], [place] [address] Dec, [facility] [address] [id number] [address] [place] [address], [place] [address] Dec, [facility] [address] [id number] [address] [place] [address], [place] [address] Dec, [facility] [address] [id number] [address] [place] [address], [place] [address] Dec, [facility] [address] [id number] [address] [place] [address], [place] [address] Dec, [facility] [address] [id number] [address] [place] [address], [place] [address] Dec, [facility] [address] [id number] [address] [place] [address], [place] [address] Dec, [facility] [address] [id number] [address] [place] [address], [place] [address] Dec, [facility] [address] [id number] [address] [place] [address], [place] [address] Dec, [facility] [address] [id number] [address] [place] [address], [place] [address] October, [facility] [address] [id number] [address] [place] [address], [place] [address] October, [facility] [address] [id number] [address] [place] [address], [place] [address] October, [facility] [address] [id number] [address] [place] [address], [place] [address] October, [facility] [address] [id number] [address] [place] [address], [place] [address] October, [facility] [address] [id number] [address] [place] [address], [place] [address] October, [facility] [address] [id number] [address] [place] [address], [place] [address] Oct, [facility] [address] [id number] [address] [place] [address], [place] [address] Oct, [facility] [address] [id number] [address] [place] [address], [place] [address] Oct, [facility] [address] [id number] [address] [place] [address], [place] [address] Oct, [facility] [address] [id number] [address] [place] [address], [place] [address] Oct, [facility] [address] [id number] [address] [place] [address], [place] [address] Oct, [facility] [address] [id number] [address] [place] [address], [place] [address] Oct, [facility] [address] [id number] [address] [place] [address], [place] [address] Oct, [facility] [address] [id number] [address] [place] [address], [place] [address] Oct, [facility] [address] [id number] [address] [place] [address], [place] [address] Oct, [facility] [address] [id number] [address] [place] [address], [place] [address] Oct, [facility] [address] [id number] [address] [place] [address], [place] [address] Oct, [facility] [address] [id number] [address] [place] [address], [place] [address] Aug, [facility] [address] [id number] [address] [place] [address], [place] [address] Aug, [facility] [address] [id number] [address] [place] [address], [place] [address] Aug, [facility] [address] [id number] [address] [place] [address], [place] [address] Aug, [facility] [address] [id number] [address] [place] [address], [place] [address] Aug, [facility] [address] [id number] [address] [place] [address], [place] [address] Aug, [facility] [address] [id number] [address] [place] [address], [place] [address] Aug, [facility] [address] [id number] [address] [place] [address], [place] [address] Aug, [facility] [address] [id number] [address] [place] [address], [place] [address] Aug, [facility] [address] [id number] [address] [place] [address], [place] [address] Aug, [facility] [address] [id number] [address] [place] [address], [place] [address] Aug, [facility] [address] [id number] [address] [place] [address], [place] [id number] Aug, [facility] [address] [id number] [address] [place] [address], [place] [address] Aug, [facility] [address] [id number] [address] [place] [address], [place] [address] 20 Aug, 2013 [facility] [address] [id number] [address] [place] [address], [place] [address] 14 Aug, 2013 [facility] [address] [id number] [address] [place] [address], [place] [address] 14 Aug, 2013 [facility] [address] [id number] [address] [place] [address], [place] [address] 14 Aug, 2013 [facility] [address] [id number] [address] [place] [address], [place] [address] 14 Aug, 2013 [facility] [address] [id number] [address] [place] [address], [place] [address] 07 Aug, 2013 [facility] [address] [id number] [address] [place] [address], [place] [address] 07 Aug, 2013 [facility] [address] [id number] [address] [place] [address], [place] [address] 06 Aug, 2013 [facility] [address] [id number] [address] [place] [address], [place] [address] 06 Aug, 2013 [facility] [address] [id number] [address] [place] [address], [place] [address] 04 Aug, 2013 [facility] [address] [id number] [address] [place] [address], [place] [address] 04 Aug, 2013 [facility] [address] [id number] [address] [place] [address], [place] [address] Aug, [facility] [address] [id number] [address] [place] [address], [place] [address] Jul, [facility] [address] [id number] [address] [place] [address], [place] [address] Jul, [facility] [address] [id number] [address] [place] [address], [place] [address] Jul, [facility] [address] [id number] [address] [place] [address], [place] [address] Jul, [facility] [address] [id number] [address] [place] [address], [place] [address] Jul, [facility] [address] [id number] [address] [place] [address], [place] [address] Jul, [facility] [address] [id number] [address] [place] [address], [place] [address] Jul, [facility] [address] [id number] [address] [place] [address], [place] [address] Jul, [facility] [address] [id number] [address] [place] [address], [place] [address] Jul, [facility] [address] [id number] [address] [place] [address], [place] [address] Jul, [facility] [address] [id number] [address] [place] [address], [place] [address] Jul, [facility] [address] [id number] [address] [place] [address], [place] [address] Jul, [facility] [address] [id number] [address] [place] [address], [place] [address] Jul, [facility] [address] [id number] [address] [place] [address], [place] [address] Jul, [facility] [address] [id number] [address] [place] [address], [place] [address] Jul, [facility] [address] [id number] [address] [place] [address], [place] [address] Jul, [facility] [address] [id number] [address] [place] [address], [place] [address] Jul, [facility] [address] [id number] [address] [place] [address], [place] [address] Jul, [facility] [address] [id number] [address] [place] [address], [place] [address] Jul, [facility] [address] [id number] [address] [place] [address], [place] [address] Jul, [facility] [address] [id number] [address] [place] [address], [place] [address] Jun, [facility] [address] [id number] [address] [place] [address], [place] [address] Jun, [facility] [address] [id number] [address] [place] [address], [place] [address] Jun, [facility] [address] [id number] [address] [place] [address], [place] [address] Jun, [facility] [address] [id number] [address] [place] [address], [place] [address] Jun, [facility] [address] [id number] [address] [place] [address], [place] [address] Jun, [facility] [address] [id number] [address] [place] [address], [place] [address] Jun, [facility] [address] [id number] [address] [place] [address], [place] [address] Jun, [facility] [address] [id number] [address] [place] [address], [place] [address] Jun, [facility] [address] [id number] [address] [place] [address], [place] [address] Jun, [facility] [address] [id number] [address] [place] [address], [place] [address] Jun, [facility] [address] [id number] [address] [place] [address], [place] [address] Jun, [facility] [address] [id number] [address] [place] [address], [place] [address] Jun, [facility] [address] [id number] [address] [place] [address], [place] [address] 20 Jun, 2013 [facility] [address] [id number] [address] [place] [address], [place] [address] 20 Jun, 2013 [facility] [address] [id number] [address] [place] [address], [place] [address] 18 Jun, 2013 [facility] [address] [id number] [address] [place] [address], [place] [address] 18 Jun, 2013 [facility] [address] [id number] [address] [place] [address], [place] [address] 17 Jun, 2013 [facility] [address] [id number] [address] [place] [address], [place] [address] 17 Jun, 2013 [facility] [address] [id number] [address] [place] [address], [place] [address] 13 Jun, 2013 [facility] [address] [id number] [address] [place] [address], [place] [address] 12 Jun, 2013 [facility] [address] [id number] [address] [place] [address], [place] [address] 12 Jun, 2013 [facility] [address] [id number] [address] [place] [address], [place] [address] 09 Jun, 2013 [facility] [address] [id number] [address] [place] [address], [place] [address] 05 Jun, 2013 [facility] [address] [id number] [address] [place] [address], [place] [address] 05 Jun, 2013 [facility] [address] [id number] [address] [place] [address], [place] [address] 04 Jun, 2013 [facility] [address] [id number] [address] [place] [address], [place] [address] Jun, [facility] [address] [id number] [address] [place] [address], [place] [address] 17 May, 2013 [facility] [address] [id number] [address] [place] [address], [place] [address] 17 May, 2013 [facility] [address] [id number] [address] [place] [address], [place] [address] May, [facility] [address] [id number] [address] [place] [address], [place] [address] May, [facility] [address] [id number] [address] [place] [address], [place] [address] May, [facility] [address] [id number] [address] [place] [address], [place] [address] May, [facility] [address] [id number] [address] [place] [address], [place] [address] Apr, [facility] [address] [id number] [address] [place] [address], [place] [address] Apr, [facility] [address] [id number] [address] [place] [address], [place] [address] Apr, [facility] [address] [id number] [address] [place] [address], [place] [address] Apr, [facility] [address] [id number] [address] [place] [address], [place] [address] Apr, [facility] [address] [id number] [address] [place] [address], [place] [address] Apr, [facility] [address] [id number] [address] [place] [address], [place] [address] Apr, [facility] [address] [id number] [address] [place] [address], [place] [address] Apr, [facility] [address] [id number] [address] [place] [address], [place] [address] 26 Mar, 2013 [facility] [address] [id number] [address] [place] [address], [place] [address] 24 Mar, 2013 [facility] [address] [id number] [address] [place] [address], [place] [address] 17 Mar, 2013 [facility] [address] [id number] [address] [place] [address], [place] [address] 17 Mar, 2013 [facility] [address] [id number] [address] [place] [address], [place] [address] 11 Mar, 2012 [facility] [address] [id number] [address] [place] [address], [place] [address] 10 Mar, 2012 [facility] [address] [id number] [address] [place] [address], [place] [address] 05 Mar, 2012 [facility] [address] [id number] [address] [place] [address], [place] [address] 04 Mar, 2013 [facility] [address] [id number] [address] [place] [address], [place] [address] 20 Jan, 2013 [facility] [address] [id number] [address] [place] [address], [place] [address] Jan, [facility] [address] [id number] [address] [place] [address], [place] [address] 14 Jan, 2013 [facility] [address] [id number] [address] [place] [address], [place] [address] Jan, [facility] [address] [id number] [address] [place] [address], [place] [address] Jan, [facility] [address] [id number] [address] [place] [address], [place] [address] Jan, [facility] [address] [id number] [address] [place] [address], [place] [address] Dec, [facility] [address] [id number] [address] [place] [address], [place] [address] Dec, [facility] [address] [id number] [address] [place] [address], [place] [address] Dec, [facility] [address] [id number] [address] [place] [address], [place] [address] Dec, [facility] [address] [id number] [address] [place] [address], [place] [address] Dec, [facility] [address] [id number] [address] [place] [address], [place] [address] 17 Dec, 2012 [facility] [address] [id number] [address] [place] [address], [place] [address] 16 Dec, 2012 [facility] [address] [id number] [address] [place] [address], [place] [address] 16 Dec, 2012 [facility] [address] [id number] [address] [place] [address], [place] [address] 15 Dec, 2012 [facility] [address] [id number] [address] [place] [address], [place] [address] 10 Dec, 2012 [facility] [address] [id number] [address] [place] [address], [place] [address] 28 Dec, 2012 [facility] [address] [id number] [address] [place] [address], [place] [address] Dec, [facility] [address] [id number] [address] [place] [address], [place] [address] Dec, [facility] [address] [id number] [address] [place] [address], [place] [address] Dec, [facility] [address] [id number] [address] [place] [address], [place] [address] Dec, [facility] [address] [id number] [address] [place] [address], [place] [address] Dec, [facility] [address] [id number] [address] [place] [address], [place] [address] October, [facility] [address] [id number] [address] [place] [address], [place] [address] October, [facility] [address] [id number] [address] [place] [address], [place] [address] October, [facility] [address] [id number] [address] [place] [address], [place] [address] October, [facility] [address] [id number] [address] [place] [address], [place] [address] October, [facility] [address] [id number] [address] [place] [address], [place] [address] October, [facility] [address] [id number] [address] [place] [address], [place] [address] October, [facility] [address] [id number] [address] [place] [address], [place] [address] Oct, [facility] [address] [id number] [address] [place] [address], [place] [address] Oct, [facility] [address] [id number] [address] [place] [address], [place] [address] Oct, [facility] [address] [id number] [address] [place] [address], [place] [address] Oct, [facility] [address] [id number] [address] [place] [address], [place] [address] Oct, [facility] [address] [id number] [address] [place] [address], [place] [address] Oct, [facility] [address] [id number] [address] [place] [address], [place] [address] Oct, [facility] [address] [id number] [address] [place] [address], [place] [address] 15 Oct, 2012 [facility] [address] [id number] [address] [place] [address], [place] [address] Oct, [facility] [address] [id number] [address] [place] [address], [place] [address] Oct, [facility] [address] [id number] [address] [place] [address], [place] [address] Oct, [facility] [address] [id number] [address] [place] [address], [place] [address] Oct, [facility] [address] [id number] [address] [place] [address], [place] [address] Aug, [facility] [address] [id number] [address] [place] [address], [place] [address] Aug, [facility] [address] [id number] [address] [place] [address], [place] [address] 12 Aug, 2012 [facility] [address] [id number] [address] [place] [address], [place] [address] 06 Aug, 2012 [facility] [address] [id number] [address] [place] [address], [place] [address] Aug, [facility] [address] [id number] [address] [place] [address], [place] [address] 05 Aug, 2012 [facility] [address] [id number] [address] [place] [address], [place] [address] 20 Aug, 2012 [facility] [address] [id number] [address] [place] [address], [place] [address] 14 Aug, 2012 [facility] [address] [id number] [address] [place] [address], [place] [address] Aug, [facility] [address] [id number] [address] [place] [address], [place] [address] Aug, [facility] [address] [id number] [address] [place] [address], [place] [address] Jul, [facility] [address] [id number] [address] [place] [address], [place] [address] Jul, [facility] [address] [id number] [address] [place] [address], [place] [address] Jul, [facility] [address] [id number] [address] [place] [address], [place] [address] Jun, [facility] [address] [id number] [address] [place] [address], [place] [address] Jun, [facility] [address] [id number] [address] [place] [address], [place] [address] Jun, [facility] [address] [id number] [address] [place] [address], [place] [address] Jun, [facility] [address] [id number] [address] [place] [address], [place] [address] 18 Jun, 2012 [facility] [address] [id number] [address] [place] [address], [place] [address] 14 Jun, 2012 [facility] [address] [id number] [address] [place] [address], [place] [address] 14 Jun, 2012 [facility] [address] [id number] [address] [place] [address], [place] [address] 13 Jun, 2012 [facility] [address] [id number] [address] [place] [address], [place] [address] 13 Jun, 2012 [facility] [address] [id number] [address] [place] [address], [place] [address] 11 Jun, 2012 [facility] [address] [id number] [address] [place] [address], [place] [address] 11 Jun, 2012 [facility] [address] [id number] [address] [place] [address], [place] [address] 11 Jun, 2012 [facility] [address] [id number] [address] [place] [address], [place] [address] 11 Jun, 2012 [facility] [address] [id number] [address] [place] [address], [place] [address] 07 Jun, 2012 [facility] [address] [id number] [address] [place] [address], [place] [address] 07 Jun, 2012 [facility] [address] [id number] [address] [place] [address], [place] [address] 06 Jun, 2012 [facility] [address] [id number] [address] [place] [address], [place] [address] 06 Jun, 2012 [facility] [address] [id number] [address] [place] [address], [place] [address] 06 Jun, 2012 [facility] [address] [id number] [address] [place] [address], [place] [address] 06 Jun, 2012 [facility] [address] [id number] [address] [place] [address], [place] [address] Jun, [facility] [address] [id number] [address] [place] [address], [place] [address] Jun, [facility] [address] [id number] [address] [place] [address], [place] [address] Jun, [facility] [address] [id number] [address] [place] [address], [place] [address] Jun, [facility] [address] [id number] [address] [place] [address], [place] [address] May, [facility] [address] [id number] [address] [place] [address], [place] [address] May, [facility] [address] [id number] [address] [place] [address], [place] [address] May, [facility] [address] [id number] [address] [place] [address], [place] [address] May, [facility] [address] [id number] [address] [place] [address], [place] [address] May, [facility] [address] [id number] [address] [place] [address], [place] [address] May, [facility] [address] [id number] [address] [place] [address] May, [facility] [address] [id number] [address] [place] [address], [place] [address] May, [facility] [address] [id number] [address] [place] [id number] Apr, [facility] [address] [id number] [address] [place] [address], [place] [address] Apr, [facility] [address] [id number] [address] [place] [address], [place] [address] 29 Apr, 2012 [facility] [address] [id number] [address] [place] [address], [place] [address] Apr, [facility] [address] [id number] [address] [place] [address], [place] [address] 16 Apr, 2012 [facility] [address] [id number] [address] [place] [address], [place] [address] Apr, [facility] [address] [id number] [address] [place] [address], [place] [address] Apr, [facility] [address] [id number] [address] [place] [address], [place] [address] Apr, [facility] [address] [id number] [address] [place] [address], [place] [address] Apr, [facility] [address] [id number] [address] [place] [address], [place] [address] Apr, [facility] [address] [id number] [address] [place] [address], [place] [address] Apr, [facility] [address] [id number] [address] [place] [address], [place] [address] Apr, [facility] [address] [id number] [address] [place] [id number] 19 Mar, 2012 [facility] [address] [id number] [address] [place] [address], [place] [address] 18 Mar, 2012 [facility] [address] [id number] [address] [place] [id number] 12 Mar, 2012 [facility] [address] [id number] [address] [place] [address] 12 Mar, 2012 [facility] [address] [id number] [address] [place] [id number] 12 Mar, 2012 [facility] [address] [id number] [address] [place] [place] [id number] Mar, [facility] [address] [id number] [address] [place] [id number] 04 Mar, 2012 [facility] [address] [id number] [address] [place] [address] Jan, [facility] [address] [id number] [address] [place] [address], [place] [address] Jan, [facility] [address] [id number] [facility] [place] [id number] Jan, [facility] [address] [id number] [facility] [place] [id number] Jan, [facility] [address] [id number] [address] [place] [address], [place] [address] Jan, [facility] [address] [id number] [address] [place] [address], [place] [address] Jan, [facility] [address] [id number] [address] [place] [address], [place] [address] Jan, [facility] [address] [id number] [address] [place] [address], [place] [address] Jan, [facility] [address] [id number] [address] [place] [address], [place] [address] Jan, [facility] [address] [id number] [address] [place] [address], [place] [address] Jan, [facility] [address] [id number] [address] [place] [address], [place] [address] Jan, [facility] [address] [id number] [address] [place] [address], [place] [address] Dec, [facility] [address] [id number] [address] [place] [address], [place] [address] Dec, [facility] [address] [id number] [address] [place] [address], [place] [address] Dec, [facility] [address] [id number] [address] [place] [address], [place] [address] Dec, [facility] [address] [id number] [address] [place] [address], [place] [id number] Dec, [facility] [address] [id number] [address] [place] [address], [place] [address] Dec, [facility] [address] [id number] [address] [place] [address], [place] [address] 18 Jan, 2012 [facility] [address] [id number] [address] [place] [address], [place] [address] 17 Jan, 2012 [facility] [address] [id number] [address] [place] [address], [place] [address] 16 Jan, 2012 [facility] [address] [id number] [address] [place] [address], [place] [address] 13 Jan, 2012 [facility] [address] [id number] [address] [place] [address], [place] [address] 13 Jan, 2012 [facility] [address] [id number] [address] [place] [address], [place] [address] 02 Jan, 2012 [facility] [address] [id number] [address] [place] [address], [place] [address] Dec, [facility] [address] [id number] [address] [place] [address], [place] [address] 27 Dec, 2011 [facility] [address] [id number] [address] [place] [address], [place] [address] Dec, [facility] [address] [id number] [address] [place] [address], [place] [address] Dec, [facility] [address] [id number] [address] [place] [address], [place] [address] Dec, [facility] [address] [id number] [address] [place] [address], [place] [address] Dec, [facility] [address] [id number] [address] [place] [address], [place] [address] Dec, [facility] [address] [id number] [address] [place] [address], [place] [address] October, [facility] [address] [id number] [address] [place] [address], [place] [address] October, [facility] [address] [id number] [address] [place] [address], [place] [address] October, [facility] [address] [id number] [address] [place] [address], [place] [address] October, [facility] [address] [id number] [address] [place] [address], [place] [address] October, [facility] [address] [id number] [address] [place] [address], [place] [address] October, [facility] [address] [id number] [address] [place] [address], [place] [address] Oct, [facility] [address] [id number] [address] [place] [address], [place] [address] 24 Oct, 2011 [facility] [address] [id number] [address] [place] [address], [place] [address] Oct, [facility] [address] [id number] [address] [place] [address], [place] [address] Oct, [facility] [address] [id number] [address] [place] [address], [place] [address] Oct, [facility] [address] [id number] [address] [place] [address], [place] [address] Oct, [facility] [address] [id number] [address] [place] [address], [place] [address] Oct, [facility] [address] [id number] [address] [place] [address], [place] [address] 29 Sep, 2011 [facility] [address] [id number] [address] [place] [address], [place] [address] 29 Sep, 2011 [facility] [address] [id number] [address] [place] [address], [place] [address] 19 Sep, 2011 [facility] [address] [id number] [address] [place] [address], [place] [address] 13 Sep, 2011 [facility] [address] [id number] [address] [place] [address], [place] [address] 05 Sep, 2011 [facility] [address] [id number] [address] [place] [address], [place] [address] Aug, [facility] [address] [id number] [address] [place] [address], [place] [address] Aug, [facility] [address] [id number] [address] [place] [address], [place] [address] Aug, [facility] [address] [id number] [address] [place] [address], [place] [address] Aug, [facility] [address] [id number] [address] [place] [address], [place] [address] Jul, [facility] [address] [id number] [address] [place] [address], [place] [address] Jul, [facility] [address] [id number] [address] [place] [address], [place] [address] Jul, [facility] [address] [id number] [address] [place] [address], [place] [address] Jul, [facility] [address] [id number] [address] [place] [address], [place] [address] Jun, [facility] [address] [id number] [address] [place] [address], [place] [address] Jun, [facility] [address] [id number] [address] [place] [address], [place] [address] May, [facility] [address] [id number] [address] [place] [address], [place] [address] May, [facility] [address] [id number] [address] [place] [address], [place] [address] May, [facility] [address] [id number] [address] [place] [address], [place] [address] May, [facility] [address] [id number] [address] [place] [address], [place] [address] May, [facility] [address] [id number] [address] [place] [address] Apr, [facility] [address] [id number] [address] [place] [address] Apr, [facility] [address] [id number] [address] [place] [address] Apr, [facility] [address] [id number] [address] [place] [address] Jan, [facility] [address] [id number] [address] [place] [address] Dec, [facility] [address] [id number] [address] [place] [address] October, [facility] [address] [id number] [address] [place] [address] Jun, [facility] [address] [id number] [address] [place] [address] Apr, [facility] [address] [id number] [address] [place] [address] Apr, [facility] [address] [id number] [address] [place] [address] Apr, [facility] [address] [id number] [address] [place] [address] Jun, IMMUNIZATIONS No Known Immunizations SOCIAL HISTORY Never Assessed REASON FOR VISIT UDS PLAN OF CARE VITAL SIGNS MEDICATIONS Unknown Medications RESULTS No Results PROCEDURES No Known procedures INSTRUCTIONS MEDICATIONS ADMINISTERED No Known Medications MEDICAL (GENERAL) HISTORY Type Description Date Medical History Psychiatric disorder Medical History Hard of hearing Surgical History Neofibrous tumor Surgical History back injection Hospitalization History Intestinal blockage Hospitalization History past psychiatric hospitalizations x2
--- OUTSIDE RECORDS SUMMARY | 2020-01-25 13:08 | XMS REPORT ---
Author Author Ana ESCAMILLAYEN [facility] Address [address] [place] [address] Care Team Providers Care Flame Planer Name Role Phone FRANCINE, KWAEM Unavailable PROBLEMS Type Condition ICD9-CM Code [id number] Code Onset Dates Condition S tatus SNOMED Code Problem Attention deficit R41.840 Active 76 214102 Problem Cannabis abuse F12.10 Active 99981 009 Problem Chronic hepatitis C without hepatic coma B18.2 Active 063039278 Problem Attention deficit hyperactivity disorder (ADHD), combi luciano type F90.2 Active 52135284 Problem Bipolar disorder, in partial remission, most rec ent episode hypomanic F31.71 Active 993397424 Problem H/O laminectomy Z98.89 Active 1616 76583 Problem Bipolar 1 disorder F31.9 Active 3 49624234 Problem Anxiety disorder, unspecified type F41.9 Active 200267341 Problem Other chronic pain G89.29 Active 8 2601616 ALLERGIES No Information ENCOUNTERS Encounter Location Date Diagnosis [facility] [address] [facility] [id number] [address] [place] [address] Apr, [facility] [address] [facility] [id number] [address] [place] [address] Apr, Bipolar disorder, in partial remission, most recent episode hypomanic F31.71 [facility] [address] [facility] [id number] [address] [place] [address] Apr, Bipolar disorder, in partial remission, most recent episode hypomanic F31.71 [facility] [address] [facility] [id number] [address] [place] [address] Mar, [facility] [address] [facility] [id number] [address] [place] [address] Mar, Bipolar disorder, in partial remission, most recent episode hypomanic F31.71 ; Encounter for immunization Z23 and Low back pain M54.5 [facility] [address] [id number] [address] [place] [address] 17 Mar, 2018 Bipolar disorder, in partial remission, most recent episode hypomanic F31.71 [facility] [address] [id number] [address] [place] [address] Mar, Bipolar disorder, in partial remission, most recent episode hypomanic F31.71 [facility] [address] [id number] [address] [place] [address] Jan, Bipolar disorder, in partial remission, most recent episode hypomanic F31.71 [facility] [address] [id number] [address] [place] [address] Jan, Bipolar disorder, in partial remission, most recent episode hypomanic F31.71 [facility] [address] [id number] [address] [place] [address] Dec, Bipolar disorder, in partial remission, most recent episode hypomanic F31.71 [facility] [address] [id number] [address] [place] [address] Dec, Bipolar disorder, in partial remission, most recent episode hypomanic F31.71 ; Attention deficit hyperactivity disorder (ADHD), combined type F90.2 ; Anxiety disorder, unspecified type F41.9 and 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 [facility] [address] [id number] [address] [place] [address] Dec, Bipolar disorder, in partial remission, most recent episode hypomanic F31.71 [facility] [address] [id number] [address] [place] [address] Dec, Bipolar disorder, in partial remission, most recent episode hypomanic F31.71 [facility] [address] [id number] [address] [place] [address] October, Bipolar disorder, in partial remission, most recent episode hypomanic F31.71 [facility] [address] [id number] [address] [place] [address] October, [facility] [address] [id number] [address] [place] [address] October, [facility] [address] [id number] [address] [place] [address] Oct, Bipolar disorder, in partial remission, most recent episode hypomanic F31.71 ; Attention deficit hyperactivity disorder (ADHD), combined type F90.2 ; Anxiety disorder, unspecified type F41.9 and Encounter for drug screening Z02.83 [facility] [address] [id number] [address] [place] [address] Oct, Bipolar disorder, in partial remission, most recent episode hypomanic F31.71 [facility] [address] [facility] [id number] [address] [place] [address] Oct, Bipolar disorder, in partial remission, most recent episode hypomanic F31.71 [facility] [address] [facility] [id number] [address] [place] [address] Aug, Bipolar disorder, in partial remission, most recent episode hypomanic F31.71 [facility] [address] [facility] [id number] [address] [place] [address] Aug, Bipolar disorder, in partial remission, most recent episode hypomanic F31.71 [facility] [address] [facility] [id number] [address] [place] [address] Aug, Bipolar disorder, in partial remission, most recent episode hypomanic F31.71 [facility] [address] [id number] [address] [place] [address] Jul, Bipolar disorder, in partial remission, most recent episode hypomanic F31.71 ; Attention deficit hyperactivity disorder (ADHD), combined type F90.2 and Anxiety disorder, unspecified type F41.9 [facility] [address] [facility] [id number] [address] [place] [address] Jul, Bipolar disorder, in partial remission, most recent episode hypomanic F31.71 [facility] [address] [id number] [address] [place] [address] Jun, Bipolar disorder, in partial remission, most recent episode hypomanic F31.71 [facility] [address] [id number] [address] [place] [address] May, Bipolar disorder, in partial remission, most recent episode hypomanic F31.71 [facility] [address] [id number] [address] [place] [address] May, Bipolar disorder, in partial remission, most recent episode hypomanic F31.71 [facility] [address] [id number] [address] [place] [address] Apr, [facility] [address] [id number] [address] [place] [address] Apr, Bipolar disorder, in partial remission, most recent episode hypomanic F31.71 ; Attention deficit hyperactivity disorder (ADHD), combined type F90.2 ; Anxiety disorder, unspecified type F41.9 and Cannabis abuse F12.10 [facility] [address] [id number] [address] [place] [address] Apr, Attention deficit hyperactiv ity disorder (ADHD), combined type F90.2 [facility] [address] [facility] [id number] [address] [place] [address] Mar, Attention deficit hyperactiv ity disorder (ADHD), combined type F90.2 [facility] [address] [id number] [address] [place] [address] 14 Mar, 2017 Anxiety disorder, unspecifie d type F41.9 [facility] [address] [id number] [address] [place] [address] 18 Jan, 2017 Attention deficit hyperactiv ity disorder (ADHD), combined type F90.2 [facility] [address] [id number] [address] [place] [address] 16 Jan, 2017 Anxiety disorder, unspecifie d type F41.9 [facility] [address] [place] [id number] [address] [place] [address] Jan, Other chronic pain G89.29 ; Chronic hepatitis C without hepatic coma B18.2 and Bipolar 1 disorder F31.9 [facility] [address] [facility] [id number] [address] [place] [address] Dec, Attention deficit hyperactiv ity disorder (ADHD), combined type F90.2 [facility] [address] [facility] [id number] [address] [place] [address] Dec, Bipolar disorder, in partial remission, most recent episode hypomanic F31.71 ; Attention deficit hyperactivity disorder (ADHD), combined type F90.2 and Anxiety disorder, unspecified type F41.9 [place] [address] [place] [id number] [address] [place] [address] Dec, Bipolar disorder, in partial remission, most recent episode hypomanic F31.71 ; Attention deficit hyperactivity disorder (ADHD), combined type F90.2 and Anxiety disorder, unspecified type F41.9 [place] [address] [place] [id number] [address] [place] [address] Dec, Bipolar 1 disorder F31.9 and Attention deficit R41.840 [place] [address] [place] [id number] [address] [place] [address] Oct, Other chronic pain G89.29 ; Alopecia L65.9 and Screening, lipid Z13.220 [place] [address] [place] [id number] [address] [place] [address] Oct, [place] [address] [place] [id number] [address] [place] [address] Aug, [place] [address] [place] [id number] [place] [address] Aug, Eustachian tube dysfunction, right H69.81 ; Vertigo R42 and Other chronic pain G89.29 [place] [address] [place] [id number] [address] [place] [address] Aug, [facility] [address] [id number] [address] [place] [address] Jun, [facility] [address] [id number] [address] [place] [address] Jun, Low back pain M54.5 and Othe r chronic pain G89.29 [facility] [address] [id number] [address] [place] [address] Jun, [facility] [address] [id number] [address] [place] [address] May, [facility] [address] [id number] [address] [place] [address] Jan, [facility] [address] [id number] [address] [place] [address] Dec, [facility] [address] [id number] [address] [place] [address] Dec, [facility] [address] [id number] [address] [place] [phone] Jun, [facility] [address] [id number] [address] [place] [address] Apr, Eustachian tube dysfunction, unspecified laterality H69.80 ; Hot flashes N95.1 and Encounter for immunization Z23 [facility] [address] [id number] [address] [place] [address] Jan, [facility] [address] [id number] [address] [place] [address] Jan, [facility] [address] [id number] [address] [place] [address] Jan, [facility] [address] [id number] [address] [place] [address] Jan, [facility] [address] [id number] [address] [place] [address] Jan, Encounter to establish care V65.8 ; Bipolar 1 disorder 296.7 ; Abdominal pain 789.00 ; Constipation 564.00 ; Hard of hearing 389.9 and Drug abuse 305.90 [facility] [address] [id number] [address] [place] [address] Dec, [facility] [address] [id number] [address] [place] [address] October, [facility] [address] [id number] [address] [place] [address] October, [facility] [address] [id number] [address] [place] [address] Oct, [facility] [address] [id number] [address] [place] [address] Oct, [facility] [address] [id number] [address] [place] [address] Oct, [facility] [address] [id number] [address] [place] [address] Aug, [facility] [address] [id number] [address] [place] [address] Aug, [facility] [address] [id number] [address] [place] [address] Aug, [facility] [address] [id number] [address] [place] [address] Aug, [facility] [address] [id number] [address] [place] [address] Aug, [facility] [address] [id number] [address] [place] [address] Aug, [facility] [address] [id number] [address] [place] [address] Aug, [facility] [address] [id number] [address] [place] [address] Aug, [facility] [address] [id number] [address] [place] [address], [place] [address] Aug, 2014 [facility] [address] [id number] [address] [place] [address], [place] [address] Aug, 2014 [facility] [address] [id number] [address] [place] [address], [place] [address] Aug, 2014 [facility] [address] [id number] [address] [place] [address], [place] [address] Aug, 2014 [facility] [address] [id number] [address] [place] [address], [place] [address] Aug, 2014 [facility] [address] [id number] [address] [place] [address], [place] [address] Aug, 2014 [facility] [address] [id number] [address] [place] [address], [place] [address] Aug, 2014 [facility] [address] [id number] [address] [place] [address], [place] [address] Jul, [facility] [address] [id number] [address] [place] [address], [place] [address] Jul, [facility] [address] [id number] [address] [place] [address], [place] [address] Jul, [facility] [address] [id number] [address] [place] [address], [place] [address] Jul, [facility] [address] [id number] [address] [place] [address], [place] [address] Jul, [facility] [address] [id number] [address] [place] [address], [place] [address] Jul, [facility] [address] [id number] [address] [place] [address], [place] [address] Jul, [facility] [address] [id number] [address] [place] [address], [place] [address] Jul, [facility] [address] [id number] [address] [place] [address], [place] [address] Jun, [facility] [address] [id number] [address] [place] [address], [place] [address] Jun, [facility] [address] [id number] [address] [place] [address], [place] [address] Jun, [facility] [address] [id number] [address] [place] [address], [place] [address] Jun, [facility] [address] [id number] [address] [place] [address], [place] [address] Jun, [facility] [address] [id number] [address] [place] [address], [place] [address] Jun, [facility] [address] [id number] [address] [place] [address], [place] [address] Jun, [facility] [address] [id number] [address] [place] [address], [place] [address] Jun, [facility] [address] [id number] [address] [place] [address], [place] [address] Jun, [facility] [address] [id number] [address] [place] [address], [place] [address] Jun, [facility] [address] [id number] [address] [place] [address], [place] [address] Jun, [facility] [address] [id number] [address] [place] [address], [place] [address] May, [facility] [address] [id number] [address] [place] [address], [place] [address] May, [facility] [address] [id number] [address] [place] [address], [place] [address] May, [facility] [address] [id number] [address] [place] [address], [place] [address] May, [facility] [address] [id number] [address] [place] [address], [place] [address] May, [facility] [address] [id number] [address] [place] [address], [place] [address] May, [facility] [address] [id number] [address] [place] [address], [place] [address] May, [facility] [address] [id number] [address] [place] [address], [place] [address] Apr, [facility] [address] [id number] [address] [place] [address], [place] [address] Apr, [facility] [address] [id number] [address] [place] [address], [place] [address] Apr, [facility] [address] [id number] [address] [place] [address], [place] [address] Apr, [facility] [address] [id number] [address] [place] [address], [place] [address] Apr, [facility] [address] [id number] [address] [place] [address], [place] [address] Apr, [facility] [address] [id number] [address] [place] [address], [place] [address] Mar, [facility] [address] [id number] [address] [place] [address], [place] [address] Mar, [facility] [address] [id number] [address] [place] [address], [place] [address] Mar, [facility] [address] [id number] [address] [place] [address], [place] [address] Mar, [facility] [address] [id number] [address] [place] [address], [place] [address] Mar, [facility] [address] [id number] [address] [place] [address], [place] [address] Mar, [facility] [address] [id number] [address] [place] [address], [place] [address] Jan, [facility] [address] [id number] [address] [place] [address], [place] [address] Jan, [facility] [address] [id number] [facility] [place] [address] Jan, [facility] [address] [id number] [address] [place] [address], [place] [address] Jan, [facility] [address] [id number] [address] [place] [address], [place] [address] Dec, [facility] [address] [id number] [address] [place] [address], [place] [address] Dec, [facility] [address] [id number] [address] [place] [address], [place] [address] Dec, [facility] [address] [id number] [address] [place] [address], [place] [address] Dec, [facility] [address] [id number] [address] [place] [address], [place] [address] Dec, [facility] [address] [id number] [address] [place] [address], [place] [address] Dec, [facility] [address] [id number] [address] [place] [address], [place] [address] Dec, [facility] [address] [id number] [address] [place] [address], [place] [address] Dec, [facility] [address] [id number] [address] [place] [address], [place] [address] Dec, [facility] [address] [id number] [address] [place] [address], [place] [address] Dec, [facility] [address] [id number] [address] [place] [address], [place] [address] Dec, [facility] [address] [id number] [address] [place] [address], [place] [address] Dec, [facility] [address] [id number] [address] [place] [address], [place] [address] October, [facility] [address] [id number] [address] [place] [address], [place] [address] October, [facility] [address] [id number] [address] [place] [address], [place] [address] October, [facility] [address] [id number] [address] [place] [address], [place] [address] October, [facility] [address] [id number] [address] [place] [address], [place] [address] October, [facility] [address] [id number] [address] [place] [address], [place] [address] October, [facility] [address] [id number] [address] [place] [address], [place] [address] Oct, [facility] [address] [id number] [address] [place] [address], [place] [address] Oct, [facility] [address] [id number] [address] [place] [address], [place] [address] Oct, [facility] [address] [id number] [address] [place] [address], [place] [address] Oct, [facility] [address] [id number] [address] [place] [address], [place] [address] Oct, [facility] [address] [id number] [address] [place] [address], [place] [address] Oct, [facility] [address] [id number] [address] [place] [address], [place] [address] Oct, [facility] [address] [id number] [address] [place] [address], [place] [address] Oct, [facility] [address] [id number] [address] [place] [address], [place] [address] Oct, [facility] [address] [id number] [address] [place] [address], [place] [address] Oct, [facility] [address] [id number] [address] [place] [address], [place] [address] Oct, [facility] [address] [id number] [address] [place] [address], [place] [address] 08 Oct, 2013 [facility] [address] [id number] [address] [place] [address], [place] [address] 15 Aug, 2013 [facility] [address] [id number] [address] [place] [address], [place] [address] 15 Aug, 2013 [facility] [address] [id number] [address] [place] [address], [place] [address] 11 Aug, 2013 [facility] [address] [id number] [address] [place] [address], [place] [address] Aug, [facility] [address] [id number] [address] [place] [address], [place] [address] 05 Aug, 2013 [facility] [address] [id number] [address] [place] [address], [place] [address] 05 Aug, 2013 [facility] [address] [id number] [address] [place] [address], [place] [address] 04 Aug, 2013 [facility] [address] [id number] [address] [place] [address], [place] [address] Aug, [facility] [address] [id number] [address] [place] [address], [place] [address] Aug, [facility] [address] [address] [id number] [address] [place] [address], [place] [address] 24 Aug, 2013 [facility] [address] [id number] [address] [place] [address], [place] [address] 24 Aug, 2013 [facility] [address] [id number] [address] [place] [address], [place] [address] Aug, [facility] [address] [id number] [address] [place] [address], [place] [address] Aug, [facility] [address] [id number] [address] [place] [address], [place] [address] 20 Aug, 2013 [facility] [address] [id number] [address] [place] [address], [place] [address] 14 Aug, 2013 [facility] [address] [id number] [address] [place] [address], [place] [address] 14 Aug, 2013 [facility] [address] [id number] [address] [place] [address], [place] [address] 14 Aug, 2013 [facility] [address] [id number] [address] [place] [address], [place] [address] 14 Aug, 2013 [facility] [address] [id number] [address] [place] [address], [place] [address] 07 Aug, 2013 [facility] [address] [id number] [address] [place] [address], [place] [address] 07 Aug, 2013 [facility] [address] [id number] [address] [place] [address], [place] [address] 06 Aug, 2013 [facility] [address] [id number] [address] [place] [address], [place] [address] 06 Aug, 2013 [facility] [address] [id number] [address] [place] [address], [place] [address] 04 Aug, 2013 [facility] [address] [id number] [address] [place] [address], [place] [address] 04 Aug, 2013 [facility] [address] [id number] [address] [place] [address], [place] [address] Aug, [facility] [address] [id number] [address] [place] [address], [place] [address] Jul, [facility] [address] [id number] [address] [place] [address], [place] [address] Jul, [facility] [address] [id number] [address] [place] [address], [place] [address] Jul, [facility] [address] [id number] [address] [place] [address], [place] [address] Jul, [facility] [address] [id number] [address] [place] [address], [place] [address] Jul, [facility] [address] [id number] [address] [place] [address], [place] [address] Jul, [facility] [address] [id number] [address] [place] [address], [place] [address] Jul, [facility] [address] [id number] [address] [place] [address], [place] [address] Jul, [facility] [address] [id number] [address] [place] [address], [place] [address] Jul, [facility] [address] [id number] [address] [place] [address], [place] [address] Jul, [facility] [address] [id number] [address] [place] [address], [place] [address] Jul, [facility] [address] [id number] [address] [place] [address], [place] [address] Jul, [facility] [address] [id number] [address] [place] [address], [place] [address] Jul, [facility] [address] [id number] [address] [place] [address], [place] [address] Jul, [facility] [address] [id number] [address] [place] [address], [place] [address] Jul, [facility] [address] [id number] [address] [place] [address], [place] [address] Jul, [facility] [address] [id number] [address] [place] [address], [place] [address] Jul, [facility] [address] [id number] [address] [place] [address], [place] [address] Jul, [facility] [address] [id number] [address] [place] [address], [place] [address] Jul, [facility] [address] [id number] [address] [place] [address], [place] [address] Jul, [facility] [address] [id number] [address] [place] [address], [place] [address] 31 Jun, 2013 [facility] [address] [id number] [address] [place] [address], [place] [address] 31 Jun, 2013 [facility] [address] [id number] [address] [place] [address], [place] [address] Jun, [facility] [address] [id number] [address] [place] [address], [place] [address] Jun, [facility] [address] [id number] [address] [place] [address], [place] [address] Jun, [facility] [address] [id number] [address] [place] [address], [place] [address] Jun, [facility] [address] [id number] [address] [place] [address], [place] [address] Jun, [facility] [address] [id number] [address] [place] [address], [place] [address] Jun, [facility] [address] [id number] [address] [place] [address], [place] [address] Jun, [facility] [address] [id number] [address] [place] [address], [place] [address] Jun, [facility] [address] [id number] [address] [place] [address], [place] [address] Jun, [facility] [address] [id number] [address] [place] [address], [place] [address] Jun, [facility] [address] [id number] [address] [place] [address], [place] [address] Jun, [facility] [address] [id number] [address] [place] [address], [place] [address] Jun, [facility] [address] [id number] [address] [place] [address], [place] [address] Jun, [facility] [address] [id number] [address] [place] [address], [place] [address] 18 Jun, 2013 [facility] [address] [id number] [address] [place] [address], [place] [address] 18 Jun, 2013 [facility] [address] [id number] [address] [place] [address], [place] [address] 17 Jun, 2013 [facility] [address] [id number] [address] [place] [address], [place] [address] 17 Jun, 2013 [facility] [address] [id number] [address] [place] [address], [place] [address] 13 Jun, 2013 [facility] [address] [id number] [address] [place] [address], [place] [address] 12 Jun, 2013 [facility] [address] [id number] [address] [place] [address], [place] [address] 12 Jun, 2013 [facility] [address] [id number] [address] [place] [address], [place] [address] 09 Jun, 2013 [facility] [address] [id number] [address] [place] [address], [place] [address] 05 Jun, 2013 [facility] [address] [id number] [address] [place] [address], [place] [address] 05 Jun, 2013 [facility] [address] [id number] [address] [place] [address], [place] [address] 04 Jun, 2013 [facility] [address] [id number] [address] [place] [address], [place] [address] 04 Jun, 2013 [facility] [address] [id number] [address] [place] [address], [place] [address] 17 May, 2013 [facility] [address] [id number] [address] [place] [address], [place] [address] 17 May, 2013 [facility] [address] [id number] [address] [place] [address], [place] [address] May, [facility] [address] [id number] [address] [place] [address], [place] [address] May, [facility] [address] [id number] [address] [place] [address], [place] [address] 05 May, 2013 [facility] [address] [id number] [address] [place] [address], [place] [address] 05 May, 2013 [facility] [address] [id number] [address] [place] [address], [place] [address] 30 Apr, 2013 [facility] [address] [id number] [address] [place] [address], [place] [address] 30 Apr, 2013 [facility] [address] [id number] [address] [place] [address], [place] [address] 30 Apr, 2013 [facility] [address] [id number] [address] [place] [address], [place] [address] 30 Apr, 2013 [facility] [address] [id number] [address] [place] [address], [place] [address] Apr, [facility] [address] [id number] [address] [place] [address], [place] [address] 15 Apr, 2013 [facility] [address] [id number] [address] [place] [address], [place] [address] 15 Apr, 2013 [facility] [address] [id number] [address] [place] [address], [place] [address] Apr, [facility] [address] [id number] [address] [place] [address] 26 Mar, 2013 [facility] [address] [id number] [address] [place] [address] 24 Mar, 2012 [facility] [address] [id number] [address] [place] [address] 17 Sep, 2012 [facility] [address] [id number] [address] [place] [address], [place] [address] 17 Sep, 2012 [facility] [address] [id number] [address] [place] [address] 11 Mar, 2012 [facility] [address] [id number] [address] [place] [address] 10 Mar, 2012 [facility] [address] [id number] [address] [place] [address] 05 Mar, 2013 [facility] [address] [id number] [address] [place] [address], [place] [address] 04 Mar, 2013 [facility] [address] [id number] [address] [place] [address], [place] [address] Jan, [facility] [address] [id number] [address] [place] [address], [place] [address] Jan, [facility] [address] [id number] [address] [place] [address], [place] [address] 14 Jan, 2013 [facility] [address] [id number] [address] [place] [address], [place] [address] Jan, [facility] [address] [id number] [address] [place] [address], [place] [address] Jan, [facility] [address] [id number] [address] [place] [address], [place] [address] Jan, [facility] [address] [id number] [address] [place] [address], [place] [address] Dec, [facility] [address] [id number] [address] [place] [address], [place] [address] 24 Dec, 2012 [facility] [address] [id number] [address] [place] [address], [place] [address] Dec, [facility] [address] [id number] [address] [place] [address], [place] [address] Dec, [facility] [address] [id number] [address] [place] [address], [place] [address] Dec, [facility] [address] [id number] [address] [place] [address], [place] [address] 17 Dec, 2012 [facility] [address] [id number] [address] [place] [address], [place] [address] 16 Dec, 2012 [facility] [address] [id number] [address] [place] [address], [place] [address] 16 Dec, 2012 [facility] [address] [id number] [address] [place] [address], [place] [address] 15 Dec, 2012 [facility] [address] [id number] [address] [place] [address], [place] [address] 10 Dec, 2012 [facility] [address] [id number] [address] [place] [address], [place] [address] Dec, [facility] [address] [id number] [address] [place] [address], [place] [address] Dec, [facility] [address] [id number] [address] [place] [address], [place] [address] Dec, [facility] [address] [id number] [address] [place] [address], [place] [address] Dec, [facility] [address] [id number] [address] [place] [address], [place] [address] Dec, [facility] [address] [id number] [address] [place] [address], [place] [address] Dec, [facility] [address] [id number] [address] [place] [address], [place] [address] October, [facility] [address] [id number] [address] [place] [address], [place] [address] October, [facility] [address] [id number] [address] [place] [address], [place] [address] October, [facility] [address] [id number] [address] [place] [address], [place] [address] October, [facility] [address] [id number] [address] [place] [address], [place] [address] October, [facility] [address] [id number] [address] [place] [address], [place] [address] October, [facility] [address] [id number] [address] [place] [address], [place] [address] October, [facility] [address] [id number] [address] [place] [address], [place] [address] Oct, [facility] [address] [id number] [address] [place] [address], [place] [address] 26 Oct, 2012 [facility] [address] [id number] [address] [place] [address], [place] [address] 24 Oct, 2012 [facility] [address] [id number] [address] [place] [address], [place] [address] 23 Oct, 2012 [facility] [address] [id number] [address] [place] [address], [place] [address] 19 Oct, 2012 [facility] [address] [id number] [address] [place] [address], [place] [address] 18 Oct, 2012 [facility] [address] [id number] [address] [place] [address], [place] [address] 17 Oct, 2012 [facility] [address] [id number] [address] [place] [address], [place] [address] 15 Oct, 2012 [facility] [address] [id number] [address] [place] [address], [place] [address] Oct, [facility] [address] [id number] [address] [place] [address], [place] [address] Oct, [facility] [address] [id number] [address] [place] [address], [place] [address] Oct, [facility] [address] [id number] [address] [place] [address], [place] [address] Oct, [facility] [address] [id number] [address] [place] [address], [place] [address] Aug, [facility] [address] [id number] [address] [place] [address], [place] [address] Aug, [facility] [address] [id number] [address] [place] [address], [place] [address] Aug, [facility] [address] [id number] [address] [place] [address], [place] [address] 06 Aug, 2012 [facility] [address] [id number] [address] [place] [address], [place] [address] 05 Aug, 2012 [facility] [address] [id number] [address] [place] [address], [place] [address] 05 Aug, 2012 [facility] [address] [id number] [address] [place] [address], [place] [address] 20 Aug, 2012 [facility] [address] [id number] [address] [place] [address], [place] [address] 14 Aug, 2012 [facility] [address] [id number] [address] [place] [address], [place] [address] 12 Aug, 2012 [facility] [address] [id number] [address] [place] [address], [place] [address] 11 Aug, 2012 [facility] [address] [id number] [address] [place] [address], [place] [address] 29 Jul, 2012 [facility] [address] [id number] [address] [place] [address], [place] [address] 15 Jul, 2012 [facility] [address] [id number] [address] [place] [address], [place] [address] 08 Jul, 2012 [facility] [address] [id number] [address] [place] [address], [place] [address] 20 Jun, 2012 [facility] [address] [id number] [address] [place] [address], [place] [address] 18 Jun, 2012 [facility] [address] [id number] [address] [place] [address], [place] [address] 18 Jun, 2012 [facility] [address] [id number] [address] [place] [address], [place] [address] 18 Jun, 2012 [facility] [address] [id number] [address] [place] [address], [place] [address] 18 Jun, 2012 [facility] [address] [id number] [address] [place] [address], [place] [address] 14 Jun, 2012 [facility] [address] [id number] [address] [place] [address], [place] [address] 14 Jun, 2012 [facility] [address] [id number] [address] [place] [address], [place] [address] 13 Jun, 2012 [facility] [address] [id number] [address] [place] [address], [place] [address] 13 Jun, 2012 [facility] [address] [id number] [address] [place] [address], [place] [address] 11 Jun, 2012 [facility] [address] [id number] [address] [place] [address], [place] [address] 11 Jun, 2012 [facility] [address] [id number] [address] [place] [address], [place] [address] 11 Jun, 2012 [facility] [address] [id number] [address] [place] [address], [place] [address] Jun, [facility] [address] [id number] [address] [place] [address], [place] [address] 07 Jun, 2012 [facility] [address] [id number] [address] [place] [address], [place] [address] 07 Jun, 2012 [facility] [address] [id number] [address] [place] [address], [place] [address] Jun, [facility] [address] [id number] [address] [place] [address], [place] [address] Jun, [facility] [address] [id number] [address] [place] [address], [place] [address] Jun, [facility] [address] [id number] [address] [place] [address], [place] [address] Jun, [facility] [address] [id number] [address] [place] [address], [place] [address] Jun, [facility] [address] [id number] [address] [place] [address], [place] [address] 05 Jun, 2012 [facility] [address] [id number] [address] [place] [address], [place] [address] 04 Jun, 2012 [facility] [address] [id number] [address] [place] [id number] Jun, [facility] [address] [id number] [address] [place] [address], [place] [address] May, [facility] [address] [id number] [address] [place] [id number] May, [facility] [address] [id number] [address] [place] [id number] May, [facility] [address] [id number] [address] [place] [id number] May, [facility] [address] [id number] [address] [place] [address], [place] [address] May, [facility] [address] [id number] [address] [place] [id number] May, [facility] [address] [id number] [address] [place] [id number] May, [facility] [address] [id number] [address] [place] [id number] May, [facility] [address] [id number] [address] [place] [id number] Apr, [facility] [address] [id number] [address] [place] [id number] Apr, [facility] [address] [id number] [address] [place] [id number] 29 Apr, 2012 [facility] [address] [id number] [address] [place] [id number] Apr, [facility] [address] [id number] [address] [place] [id number] Apr, [facility] [address] [id number] [address] [place] [id number] Apr, [facility] [address] [id number] [address] [place] [id number] Apr, [facility] [address] [id number] [address] [place] [address], [place] [address] Apr, [facility] [address] [id number] [address] [place] [address], [place] [address] Apr, [facility] [address] [id number] [address] [place] [address], [place] [address] 08 Apr, 2012 [facility] [address] [id number] [address] [place] [address], [place] [address] Apr, [facility] [address] [id number] [address] [place] [address], [place] [address] Apr, [facility] [address] [id number] [address] [place] [address], [place] [address] 19 Mar, 2012 [facility] [address] [id number] [address] [place] [address], [place] [address] 18 Mar, 2012 [facility] [address] [id number] [address] [place] [address], [place] [address] Mar, [facility] [address] [id number] [address] [place] [address], [place] [address] Mar, [facility] [address] [id number] [address] [place] [id number] Mar, [facility] [address] [id number] [address] [place] [id number] Mar, [facility] [address] [id number] [address] [place] [id number] Mar, [facility] [address] [id number] [address] [place] [id number] Jan, [facility] [address] [id number] [address] [place] [id number] Jan, [facility] [address] [id number] [address] [place] [id number] Jan, [facility] [address] [id number] [address] [place] [id number] Jan, [facility] [address] [id number] [address] [place] [address], [place] [address] Jan, [facility] [address] [id number] [address] [place] [address], [place] [address] Jan, [facility] [address] [id number] [address] [place] [address], [place] [address] Jan, [facility] [address] [id number] [address] [place] [address], [place] [address] Jan, [facility] [address] [id number] [address] [place] [address], [place] [address] Jan, [facility] [address] [id number] [address] [place] [address], [place] [address] Jan, [facility] [address] [id number] [address] [place] [address], [place] [address] Jan, [facility] [address] [id number] [address] [place] [address], [place] [address] Dec, [facility] [address] [id number] [address] [place] [address], [place] [address] Dec, [facility] [address] [id number] [address] [place] [address], [place] [address] Dec, [facility] [address] [id number] [address] [place] [address], [place] [address] Dec, [facility] [address] [id number] [address] [place] [address], [place] [address] Dec, [facility] [address] [id number] [address] [place] [address], [place] [address] Dec, [facility] [address] [id number] [address] [place] [address], [place] [address] Dec, [facility] [address] [id number] [address] [place] [address], [place] [address] Dec, [facility] [address] [id number] [address] [place] [address], [place] [address] 16 Jan, 2012 [facility] [address] [id number] [address] [place] [address], [place] [address] Dec, [facility] [address] [id number] [address] [place] [address], [place] [address] 13 Jan, 2012 [facility] [address] [id number] [address] [place] [address], [place] [address] Dec, [facility] [address] [id number] [address] [place] [address], [place] [address] Dec, [facility] [address] [id number] [address] [place] [address], [place] [address] Dec, [facility] [address] [id number] [address] [place] [address], [place] [address] Dec, [facility] [address] [id number] [address] [place] [address], [place] [address] Dec, [facility] [address] [id number] [address] [place] [address], [place] [address] 15 Dec, 2011 [facility] [address] [id number] [address] [place] [address], [place] [address] Dec, [facility] [address] [id number] [address] [place] [address], [place] [address] Dec, [facility] [address] [id number] [address] [place] [address], [place] [address] October, [facility] [address] [id number] [address] [place] [address], [place] [address] October, [facility] [address] [id number] [address] [place] [address], [place] [address] October, [facility] [address] [id number] [address] [place] [address], [place] [address] October, [facility] [address] [id number] [address] [place] [address], [place] [address] October, [facility] [address] [id number] [address] [place] [address], [place] [address] October, [facility] [address] [id number] [address] [place] [address], [place] [address] 30 Oct, 2011 [facility] [address] [id number] [address] [place] [address], [place] [address] 24 Oct, 2011 [facility] [address] [id number] [address] [place] [address], [place] [address] Oct, [facility] [address] [id number] [address] [place] [address], [place] [address] Oct, [facility] [address] [id number] [address] [place] [address], [place] [address] Oct, [facility] [address] [id number] [address] [place] [address], [place] [address] Oct, [facility] [address] [id number] [address] [place] [address], [place] [address] Oct, [facility] [address] [id number] [address] [place] [address], [place] [address] Aug, [facility] [address] [id number] [address] [place] [address], [place] [address] 29 Sep, 2011 [facility] [address] [id number] [address] [place] [address], [place] [address] Aug, [facility] [address] [id number] [address] [place] [address], [place] [address] Aug, [facility] [address] [id number] [address] [place] [address], [place] [address] 05 Sep, 2011 [facility] [address] [id number] [address] [place] [address], [place] [address] 05 Sep, 2011 [facility] [address] [id number] [address] [place] [address], [place] [address] 27 Aug, 2011 [facility] [address] [id number] [address] [place] [address], [place] [address] Aug, [facility] [address] [id number] [address] [place] [address], [place] [address] Aug, [facility] [address] [id number] [address] [place] [address], [place] [address] Jul, [facility] [address] [id number] [address] [place] [address], [place] [address] Jul, [facility] [address] [id number] [address] [place] [address], [place] [address] Jul, [facility] [address] [id number] [address] [place] [address], [place] [address] Jul, [facility] [address] [id number] [address] [place] [address], [place] [address] Jun, [facility] [address] [id number] [address] [place] [address], [place] [address] Jun, [facility] [address] [id number] [address] [place] [address], [place] [address] May, [facility] [address] [id number] [address] [place] [address], [place] [address] May, [facility] [address] [id number] [address] [place] [address], [place] [address] May, [facility] [address] [id number] [address] [place] [address], [place] [address] May, [facility] [address] [id number] [address] [place] [address], [place] [address] May, [facility] [address] [id number] [address] [place] [address], [place] [address] Apr, [facility] [address] [id number] [address] [place] [address], [place] [address] Apr, [facility] [address] [id number] [address] [place] [address], [place] [address] Apr, [facility] [address] [id number] [address] [place] [address] Jan, [facility] [address] [id number] [address] [place] [address] Dec, [facility] [address] [id number] [address] [place] [address] October, [facility] [address] [id number] [address] [place] [address] Jun, [facility] [address] [id number] [address] [place] [address] Apr, [facility] [address] [id number] [address] [place] [address] Apr, [facility] [address] [facility] [id number] [address] [place] [address] Apr, [facility] [address] [facility] [id number] [address] [place] [address] Jun, IMMUNIZATIONS No Known Immunizations SOCIAL HISTORY Never Assessed REASON FOR VISIT valium 04/12/2018 PLAN OF CARE VITAL SIGNS MEDICATIONS Medication Instructions Dosage Frequency Start Date End Date Duration S tatus Valium 5 mg Orally Twice a day 1 tablet as needed 12h 30 days Active RESULTS No Results PROCEDURES No Known procedures INSTRUCTIONS MEDICATIONS ADMINISTERED No Known Medications MEDICAL (GENERAL) HISTORY Type Description Date Medical History Psychiatric disorder Medical History Hard of hearing Surgical History Neofibrous tumor Surgical History back injection Hospitalization History Intestinal blockage Hospitalization History past psychiatric hospitalizations x2
--- OUTSIDE RECORDS SUMMARY | 2020-01-25 13:09 | XMS REPORT ---
Author Author Ana ESCAMILLAYEN [facility] Address [address] [place] [address] Care Team Providers Care World Designer Name Role Phone FRANCINE, KWAME Unavailable PROBLEMS Type Condition ICD9-CM Code [id number] Code Onset Dates Condition S tatus SNOMED Code Problem Attention deficit R41.840 Active 76 557221 Problem Cannabis abuse F12.10 Active 77599 009 Problem Chronic hepatitis C without hepatic coma B18.2 Active 242855693 Problem Attention deficit hyperactivity disorder (ADHD), combi luciano type F90.2 Active 82655029 Problem Bipolar disorder, in partial remission, most rec ent episode hypomanic F31.71 Active 312497768 Problem H/O laminectomy Z98.89 Active 1616 22498 Problem Bipolar 1 disorder F31.9 Active 3 82214730 Problem Anxiety disorder, unspecified type F41.9 Active 907073234 Problem Other chronic pain G89.29 Active 8 8194425 ALLERGIES No Information ENCOUNTERS Encounter Location Date Diagnosis [facility] [address] [facility] [id number] [address] [place] [address] Apr, [facility] [address] [facility] [id number] [address] [place] [address] Mar, [facility] [address] [facility] [id number] [address] [place] [address] Mar, Bipolar disorder, in partial remission, most recent episode hypomanic F31.71 [facility] [address] [facility] [id number] [address] [place] [address] Mar, Bipolar disorder, in partial remission, most recent episode hypomanic F31.71 [facility] [address] [facility] [id number] [address] [place] [address] Jan, Bipolar disorder, in partial remission, most recent episode hypomanic F31.71 [facility] [address] [id number] [address] [place] [address] Jan, Bipolar disorder, in partial remission, most recent episode hypomanic F31.71 [facility] [address] [id number] [address] [place] [address] Dec, Bipolar disorder, in partial remission, most recent episode hypomanic F31.71 [facility] [address] [id number] [address] [place] [address] Dec, Bipolar disorder, in partial remission, most recent episode hypomanic F31.71 ; Attention deficit hyperactivity disorder (ADHD), combined type F90.2 ; Anxiety disorder, unspecified type F41.9 and Other usp (current) drug therapy Z79.899 [facility] [address] [facility] [id number] [address] [place] [address] Dec, Bipolar disorder, in partial remission, most recent episode hypomanic F31.71 [facility] [address] [id number] [address] [place] [address] Dec, Bipolar disorder, in partial remission, most recent episode hypomanic F31.71 [facility] [address] [facility] [id number] [address] [place] [address] October, Bipolar disorder, in partial remission, most recent episode hypomanic F31.71 [facility] [address] [facility] [id number] [address] [place] [address] October, [facility] [address] [facility] [id number] [address] [place] [address] October, [facility] [address] [id number] [address] [place] [address] Oct, Bipolar disorder, in partial remission, most recent episode hypomanic F31.71 ; Attention deficit hyperactivity disorder (ADHD), combined type F90.2 ; Anxiety disorder, unspecified type F41.9 and Encounter for drug screening Z02.83 [facility] [address] [facility] [id number] [address] [place] [address] Oct, Bipolar disorder, in partial remission, most recent episode hypomanic F31.71 [facility] [address] [id number] [address] [place] [address] Oct, Bipolar disorder, in partial remission, most recent episode hypomanic F31.71 [facility] [address] [id number] [address] [place] [address] Aug, Bipolar disorder, in partial remission, most recent episode hypomanic F31.71 [facility] [address] [id number] [address] [place] [address] Aug, Bipolar disorder, in partial remission, most recent episode hypomanic F31.71 [facility] [address] [id number] [address] [place] [address] Aug, Bipolar disorder, in partial remission, most recent episode hypomanic F31.71 [facility] [address] [id number] [address] [place] [address] Jul, Bipolar disorder, in partial remission, most recent episode hypomanic F31.71 ; Attention deficit hyperactivity disorder (ADHD), combined type F90.2 and Anxiety disorder, unspecified type F41.9 [facility] [address] [facility] [id number] [address] [place] [address] Jul, Bipolar disorder, in partial remission, most recent episode hypomanic F31.71 [facility] [address] [id number] [address] [place] [address] Jun, Bipolar disorder, in partial remission, most recent episode hypomanic F31.71 [facility] [address] [id number] [address] [place] [address] May, Bipolar disorder, in partial remission, most recent episode hypomanic F31.71 [facility] [address] [id number] [address] [place] [address] May, Bipolar disorder, in partial remission, most recent episode hypomanic F31.71 [facility] [address] [facility] [id number] [address] [place] [address] Apr, [facility] [address] [facility] [id number] [address] [place] [address] Apr, Bipolar disorder, in partial remission, most recent episode hypomanic F31.71 ; Attention deficit hyperactivity disorder (ADHD), combined type F90.2 ; Anxiety disorder, unspecified type F41.9 and Cannabis abuse F12.10 [facility] [address] [facility] [id number] [address] [place] [address] Apr, Attention deficit hyperactiv ity disorder (ADHD), combined type F90.2 [facility] [address] [facility] [id number] [address] [place] [address] Mar, Attention deficit hyperactiv ity disorder (ADHD), combined type F90.2 [facility] [address] [facility] [id number] [address] [place] [phone] 14 Mar, 2017 Anxiety disorder, unspecifie d type F41.9 [facility] [address] [facility] [id number] [address] [place] [address] Jan, Attention deficit hyperactiv ity disorder (ADHD), combined type F90.2 [facility] [address] [facility] [id number] [address] [place] [phone] Jan, Anxiety disorder, unspecifie d type F41.9 [facility] [address] [facility] [id number] [address] [place] [address] Jan, Other chronic pain G89.29 ; Chronic hepatitis C without hepatic coma B18.2 and Bipolar 1 disorder F31.9 [facility] [address] [facility] [id number] [address] [place] [phone] Dec, Attention deficit hyperactiv ity disorder (ADHD), combined type F90.2 [facility] [address] [facility] [id number] [address] [place] [phone] Dec, Bipolar disorder, in partial remission, most recent episode hypomanic F31.71 ; Attention deficit hyperactivity disorder (ADHD), combined type F90.2 and Anxiety disorder, unspecified type F41.9 [facility] [address] [id number] [address] [place] [address] Dec, Bipolar disorder, in partial remission, most recent episode hypomanic F31.71 ; Attention deficit hyperactivity disorder (ADHD), combined type F90.2 and Anxiety disorder, unspecified type F41.9 [facility] [address] [id number] [address] [place] [address] Dec, Bipolar 1 disorder F31.9 and Attention deficit R41.840 [facility] [address] [id number] [address] [place] [address] Oct, Other chronic pain G89.29 ; Alopecia L65.9 and Screening, lipid Z13.220 [facility] [address] [facility] [id number] [address] [place] [address] Oct, [facility] [address] [id number] [address] [place] [address] Aug, [facility] [address] [id number] [address] [place] [address] Aug, Eustachian tube dysfunction, right H69.81 ; Vertigo R42 and Other chronic pain G89.29 [facility] [address] [id number] [address] [place] [address] Aug, [facility] [address] [id number] [address] [place] [address] Jun, [facility] [address] [id number] [address] [place] [address] Jun, Low back pain M54.5 and Othe r chronic pain G89.29 [facility] [address] [id number] [address] [place] [address] Jun, [facility] [address] [id number] [address] [place] [address] May, [facility] [address] [facility] [id number] [address] [place] [address] Jan, [facility] [address] [facility] [id number] [address] [place] [address] Dec, [facility] [address] [facility] [id number] [address] [place] [address] Dec, [facility] [address] [facility] [id number] [address] [place] [address] Jun, [facility] [address] [place] [id number] [place] [address] Apr, Eustachian tube dysfunction, unspecified laterality H69.80 ; Hot flashes N95.1 and Encounter for immunization Z23 [facility] [address] [id number] [address] [place] [phone] Jan, [facility] [address] [id number] [place] [address] Jan, [facility] [address] [id number] [place] [address] Jan, [facility] [address] [address] Jan, [facility] [address] [place] [id number] [address] [place] [address] Jan, Encounter to establish care V65.8 ; Bipolar 1 disorder 296.7 ; Abdominal pain 789.00 ; Constipation 564.00 ; Hard of hearing 389.9 and Drug abuse 305.90 [facility] [address] [facility] [id number] [address] [place] [address] Dec, [facility] [address] [place] [id number] [address] [place] [address] October, [facility] [address] [place] [id number] [address] [place] [phone] October, [facility] [address] [place] [id number] [address] [place] [address] Oct, [facility] [address] [id number] [address] [place] [address], [place] [address] 14 Oct, 2014 [facility] [address] [id number] [address] [place] [address], [place] [address] Oct, [facility] [address] [id number] [address] [place] [address], [place] [address] Aug, [facility] [address] [id number] [address] [place] [address], [place] [address] Aug, [facility] [address] [id number] [address] [place] [address], [place] [address] Aug, [facility] [address] [id number] [address] [place] [address], [place] [address] Aug, 2014 [facility] [address] [id number] [address] [place] [address], [place] [address] Aug, [facility] [address] [id number] [address] [place] [address], [place] [address] Aug, [facility] [address] [id number] [address] [place] [address], [place] [address] Aug, [facility] [address] [id number] [address] [place] [address], [place] [address] Aug, [facility] [address] [id number] [address] [place] [address], [place] [address] Aug, 2014 [facility] [address] [id number] [address] [place] [address], [place] [address] Aug, 2014 [facility] [address] [id number] [address] [place] [address], [place] [address] Aug, 2014 [facility] [address] [id number] [address] [place] [address], [place] [address] Aug, 2014 [facility] [address] [id number] [address] [place] [address], [place] [address] Aug, 2014 [facility] [address] [id number] [address] [place] [address], [place] [address] Aug, [facility] [address] [id number] [address] [place] [address], [place] [address] Aug, [facility] [address] [id number] [address] [place] [address], [place] [address] Jul, [facility] [address] [id number] [address] [place] [address], [place] [address] Jul, [facility] [address] [id number] [address] [place] [address], [place] [address] Jul, [facility] [address] [id number] [address] [place] [address], [place] [address] Jul, [facility] [address] [id number] [address] [place] [address], [place] [address] Jul, [facility] [address] [id number] [address] [place] [address], [place] [address] Jul, [facility] [address] [id number] [address] [place] [address], [place] [address] Jul, [facility] [address] [id number] [address] [place] [address], [place] [address] Jul, [facility] [address] [id number] [address] [place] [address], [place] [address] Jun, [facility] [address] [id number] [address] [place] [address], [place] [address] Jun, [facility] [address] [id number] [address] [place] [address], [place] [address] Jun, [facility] [address] [id number] [address] [place] [address], [place] [address] Jun, [facility] [address] [id number] [address] [place] [address], [place] [address] 18 Jun, 2014 [facility] [address] [id number] [address] [place] [address], [place] [address] Jun, [facility] [address] [id number] [address] [place] [address], [place] [address] Jun, [facility] [address] [id number] [address] [place] [address], [place] [address] Jun, [facility] [address] [id number] [address] [place] [address], [place] [address] Jun, [facility] [address] [id number] [address] [place] [address], [place] [address] Jun, [facility] [address] [id number] [address] [place] [address], [place] [address] Jun, [facility] [address] [id number] [address] [place] [address], [place] [address] May, [facility] [address] [id number] [address] [place] [address], [place] [address] May, [facility] [address] [id number] [address] [place] [address], [place] [address] May, [facility] [address] [id number] [address] [place] [address], [place] [address] May, [facility] [address] [id number] [address] [place] [address], [place] [address] May, [facility] [address] [id number] [address] [place] [address], [place] [address] May, [facility] [address] [id number] [address] [place] [address], [place] [address] May, [facility] [address] [id number] [address] [place] [address], [place] [address] Apr, [facility] [address] [id number] [address] [place] [address], [place] [address] Apr, [facility] [address] [id number] [address] [place] [address], [place] [address] Apr, [facility] [address] [id number] [address] [place] [address], [place] [address] Apr, [facility] [address] [id number] [address] [place] [address], [place] [address] Apr, [facility] [address] [id number] [address] [place] [address], [place] [address] Apr, [facility] [address] [id number] [address] [place] [address], [place] [address] Mar, [facility] [address] [id number] [address] [place] [address], [place] [address] Mar, [facility] [address] [id number] [address] [place] [address], [place] [address] Mar, [facility] [address] [id number] [address] [place] [address], [place] [address] Mar, [facility] [address] [id number] [address] [place] [address], [place] [address] Mar, [facility] [address] [id number] [address] [place] [address], [place] [address] Mar, [facility] [address] [id number] [address] [place] [address], [place] [address] Jan, [facility] [address] [id number] [address] [place] [address], [place] [address] Jan, [facility] [address] [id number] [address] [place] [address], [place] [address] Jan, [facility] [address] [id number] [address] [place] [address], [place] [address] Jan, [facility] [address] [id number] [address] [place] [address], [place] [address] Dec, [facility] [address] [id number] [address] [place] [address], [place] [address] Dec, [facility] [address] [id number] [address] [place] [address], [place] [address] Dec, [facility] [address] [id number] [address] [place] [address], [place] [address] Dec, [facility] [address] [id number] [address] [place] [address], [place] [address] Dec, [facility] [address] [id number] [address] [place] [address], [place] [address] Dec, [facility] [address] [id number] [address] [place] [address], [place] [address] Dec, [facility] [address] [id number] [address] [place] [address], [place] [address] Dec, [facility] [address] [id number] [address] [place] [address], [place] [address] Dec, [facility] [address] [id number] [address] [place] [address], [place] [address] Dec, [facility] [address] [id number] [address] [place] [address], [place] [address] Dec, [facility] [address] [id number] [address] [place] [address], [place] [address] Dec, [facility] [address] [id number] [address] [place] [address], [place] [address] October, [facility] [address] [id number] [address] [place] [address], [place] [address] October, [facility] [address] [id number] [address] [place] [address], [place] [address] October, [facility] [address] [id number] [address] [place] [address], [place] [address] October, [facility] [address] [id number] [address] [place] [address], [place] [address] October, [facility] [address] [id number] [address] [place] [address], [place] [address] October, [facility] [address] [id number] [address] [place] [address], [place] [address] Oct, [facility] [address] [id number] [facility] [place] [address] Oct, [facility] [address] [id number] [address] [place] [address], [place] [address] Oct, [facility] [address] [id number] [address] [place] [address], [place] [address] Oct, [facility] [address] [id number] [address] [place] [address], [place] [address] Oct, [facility] [address] [id number] [address] [place] [address], [place] [address] Oct, [facility] [address] [id number] [address] [place] [address], [place] [address] Oct, [facility] [address] [id number] [address] [place] [address], [place] [address] Oct, [facility] [address] [id number] [address] [place] [address], [place] [address] Oct, [facility] [address] [id number] [address] [place] [address], [place] [address] Oct, [facility] [address] [id number] [address] [place] [address], [place] [address] Oct, [facility] [address] [id number] [address] [place] [address], [place] [address] Oct, [facility] [address] [id number] [address] [place] [address], [place] [address] Aug, [facility] [address] [id number] [address] [place] [address], [place] [address] Aug, [facility] [address] [id number] [address] [place] [address], [place] [address] Aug, [facility] [address] [id number] [address] [place] [address], [place] [address] Aug, [facility] [address] [id number] [address] [place] [address], [place] [address] 05 Aug, 2013 [facility] [address] [id number] [address] [place] [address], [place] [address] 05 Aug, 2013 [facility] [address] [id number] [address] [place] [address], [place] [address] 04 Aug, 2013 [facility] [address] [id number] [address] [place] [address], [place] [address] Aug, [facility] [address] [id number] [address] [place] [address], [place] [address] Aug, [facility] [address] [id number] [address] [place] [address], [place] [address] 24 Aug, 2013 [facility] [address] [id number] [address] [place] [address], [place] [address] 24 Aug, 2013 [facility] [address] [id number] [address] [place] [address], [place] [address] Aug, [facility] [address] [id number] [address] [place] [address], [place] [address] Aug, [facility] [address] [id number] [address] [place] [address], [place] [address] 20 Aug, 2013 [facility] [address] [id number] [address] [place] [address], [place] [address] 14 Aug, 2013 [facility] [address] [id number] [address] [place] [address], [place] [address] 14 Aug, 2013 [facility] [address] [id number] [address] [place] [address], [place] [address] 14 Aug, 2013 [facility] [address] [id number] [address] [place] [address], [place] [address] 14 Aug, 2013 [facility] [address] [id number] [address] [place] [address], [place] [address] 07 Aug, 2013 [facility] [address] [id number] [address] [place] [address], [place] [address] 07 Aug, 2013 [facility] [address] [id number] [address] [place] [address], [place] [address] 06 Aug, 2013 [facility] [address] [id number] [address] [place] [address], [place] [address] 06 Aug, 2013 [facility] [address] [id number] [address] [place] [address], [place] [address] Aug, [facility] [address] [id number] [address] [place] [address], [place] [address] Aug, [facility] [address] [id number] [address] [place] [address], [place] [address] Aug, [facility] [address] [id number] [address] [place] [address], [place] [address] Jul, [facility] [address] [id number] [address] [place] [address], [place] [address] Jul, [facility] [address] [id number] [address] [place] [address], [place] [address] Jul, [facility] [address] [id number] [address] [place] [address], [place] [address] Jul, [facility] [address] [id number] [address] [place] [address], [place] [address] Jul, [facility] [address] [id number] [address] [place] [address], [place] [address] Jul, [facility] [address] [id number] [address] [place] [address], [place] [address] Jul, [facility] [address] [id number] [address] [place] [address], [place] [address] Jul, [facility] [address] [id number] [address] [place] [address], [place] [address] Jul, [facility] [address] [id number] [address] [place] [address], [place] [address] Jul, [facility] [address] [id number] [address] [place] [address], [place] [address] Jul, [facility] [address] [id number] [address] [place] [address], [place] [address] Jul, [facility] [address] [id number] [address] [place] [address], [place] [address] Jul, [facility] [address] [id number] [address] [place] [address], [place] [address] Jul, [facility] [address] [id number] [address] [place] [address], [place] [address] Jul, [facility] [address] [id number] [address] [place] [address], [place] [address] Jul, [facility] [address] [id number] [address] [place] [address], [place] [address] Jul, [facility] [address] [id number] [address] [place] [address], [place] [address] Jul, [facility] [address] [id number] [address] [place] [address], [place] [address] Jul, [facility] [address] [id number] [address] [place] [address], [place] [address] Jul, [facility] [address] [id number] [address] [place] [address], [place] [address] Jun, [facility] [address] [id number] [address] [place] [address], [place] [address] Jun, [facility] [address] [id number] [address] [place] [address], [place] [address] Jun, [facility] [address] [id number] [address] [place] [address], [place] [address] Jun, [facility] [address] [id number] [address] [place] [address], [place] [address] Jun, [facility] [address] [id number] [address] [place] [address], [place] [address] Jun, [facility] [address] [id number] [address] [place] [address], [place] [address] Jun, [facility] [address] [id number] [address] [place] [address], [place] [address] Jun, [facility] [address] [id number] [address] [place] [address], [place] [address] Jun, [facility] [address] [id number] [address] [place] [address], [place] [address] Jun, [facility] [address] [id number] [address] [place] [address], [place] [address] Jun, [facility] [address] [id number] [address] [place] [address], [place] [address] Jun, [facility] [address] [id number] [address] [place] [address], [place] [address] Jun, [facility] [address] [id number] [address] [place] [address], [place] [address] Jun, [facility] [address] [id number] [address] [place] [address], [place] [address] Jun, [facility] [address] [id number] [address] [place] [address], [place] [address] Jun, [facility] [address] [id number] [address] [place] [address], [place] [address] 18 Jun, 2013 [facility] [address] [id number] [address] [place] [address], [place] [address] 17 Jun, 2013 [facility] [address] [id number] [address] [place] [address], [place] [address] 17 Jun, 2013 [facility] [address] [id number] [address] [place] [address], [place] [address] 13 Jun, 2013 [facility] [address] [id number] [address] [place] [address], [place] [address] 12 Jun, 2013 [facility] [address] [id number] [address] [place] [address], [place] [address] Jun, [facility] [address] [id number] [address] [place] [address], [place] [address] Jun, [facility] [address] [id number] [address] [place] [address], [place] [address] Jun, [facility] [address] [id number] [address] [place] [address], [place] [address] Jun, [facility] [address] [id number] [address] [place] [address], [place] [address] Jun, [facility] [address] [id number] [address] [place] [address], [place] [address] Jun, [facility] [address] [id number] [address] [place] [address], [place] [address] May, [facility] [address] [id number] [address] [place] [address], [place] [address] May, [facility] [address] [id number] [address] [place] [address], [place] [address] May, [facility] [address] [id number] [address] [place] [address], [place] [address] May, [facility] [address] [id number] [address] [place] [address], [place] [address] May, [facility] [address] [id number] [address] [place] [address], [place] [address] May, [facility] [address] [id number] [address] [place] [address], [place] [address] Apr, [facility] [address] [id number] [address] [place] [address], [place] [address] Apr, [facility] [address] [id number] [address] [place] [address], [place] [address] Apr, [facility] [address] [id number] [address] [place] [address], [place] [address] Apr, [facility] [address] [id number] [address] [place] [address], [place] [address] Apr, [facility] [address] [id number] [address] [place] [address], [place] [address] 15 Apr, 2013 [facility] [address] [id number] [address] [place] [address], [place] [address] 15 Apr, 2013 [facility] [address] [id number] [address] [place] [address], [place] [address] Apr, [facility] [address] [id number] [address] [place] [address], [place] [address] 26 Mar, 2013 [facility] [address] [id number] [address] [place] [address], [place] [address] 24 Mar, 2013 [facility] [address] [id number] [address] [place] [address], [place] [address] 17 Mar, 2013 [facility] [address] [id number] [address] [place] [address], [place] [address] 17 Mar, 2012 [facility] [address] [id number] [address] [place] [address], [place] [address] 11 Mar, 2013 [facility] [address] [id number] [address] [place] [address] 10 Mar, 2013 [facility] [address] [id number] [address] [place] [address] 05 Mar, 2013 [facility] [address] [id number] [address] [place] [address] 04 Mar, 2013 [facility] [address] [id number] [address] [place] [address], [place] [address] 20 Jan, 2013 [facility] [address] [id number] [address] [place] [address], [place] [address] 19 Jan, 2013 [facility] [address] [id number] [address] [place] [address] 14 Jan, 2013 [facility] [address] [id number] [address] [place] [address] Jan, [facility] [address] [id number] [address] [place] [address], [place] [address] Jan, [facility] [address] [id number] [address] [place] [address], [place] [address] Jan, [facility] [address] [id number] [address] [place] [address], [place] [address] Dec, [facility] [address] [id number] [address] [place] [address], [place] [address] 24 Dec, 2012 [facility] [address] [id number] [address] [place] [address], [place] [address] Dec, [facility] [address] [id number] [address] [place] [address], [place] [address] Dec, [facility] [address] [id number] [address] [place] [address], [place] [address] Dec, [facility] [address] [id number] [address] [place] [address], [place] [address] 17 Dec, 2012 [facility] [address] [id number] [address] [place] [address], [place] [address] 16 Dec, 2012 [facility] [address] [id number] [address] [place] [address], [place] [address] 16 Dec, 2012 [facility] [address] [id number] [address] [place] [address], [place] [address] 15 Dec, 2012 [facility] [address] [id number] [address] [place] [address], [place] [address] Dec, [facility] [address] [id number] [address] [place] [address], [place] [address] Dec, [facility] [address] [id number] [address] [place] [address], [place] [address] Dec, [facility] [address] [id number] [address] [place] [address], [place] [address] Dec, [facility] [address] [id number] [address] [place] [address], [place] [address] 17 Dec, 2012 [facility] [address] [id number] [address] [place] [address], [place] [address] Dec, [facility] [address] [id number] [address] [place] [address], [place] [address] Dec, [facility] [address] [id number] [address] [place] [address], [place] [address] October, [facility] [address] [id number] [address] [place] [address], [place] [address] October, [facility] [address] [id number] [address] [place] [address], [place] [address] October, [facility] [address] [id number] [address] [place] [address], [place] [address] October, [facility] [address] [id number] [address] [place] [address], [place] [address] October, [facility] [address] [id number] [address] [place] [address], [place] [address] October, [facility] [address] [id number] [address] [place] [address], [place] [address] October, [facility] [address] [id number] [address] [place] [address], [place] [address] Oct, [facility] [address] [id number] [address] [place] [address], [place] [address] Oct, [facility] [address] [id number] [address] [place] [address], [place] [address] Oct, [facility] [address] [id number] [address] [place] [address], [place] [address] Oct, [facility] [address] [id number] [address] [place] [address], [place] [address] Oct, [facility] [address] [id number] [address] [place] [address] [address] 18 Oct, 2012 [facility] [address] [id number] [address] [place] [address], [place] [address] 17 Oct, 2012 [facility] [address] [id number] [address] [place] [address], [place] [address] 15 Oct, 2012 [facility] [address] [id number] [address] [place] [address], [place] [address] Oct, [facility] [address] [id number] [address] [place] [address], [place] [address] Oct, [facility] [address] [id number] [address] [place] [address], [place] [address] Oct, [facility] [address] [id number] [address] [place] [address], [place] [address] Oct, [facility] [address] [id number] [address] [place] [address], [place] [address] Aug, [facility] [address] [id number] [address] [place] [address], [place] [address] Aug, [facility] [address] [id number] [address] [place] [address], [place] [address] Aug, [facility] [address] [id number] [address] [place] [address], [place] [address] Aug, [facility] [address] [id number] [address] [place] [address], [place] [address] Aug, [facility] [address] [id number] [address] [place] [address], [place] [address] Aug, [facility] [address] [id number] [address] [place] [address], [place] [address] Aug, [facility] [address] [id number] [address] [place] [address], [place] [address] 14 Aug, 2012 [facility] [address] [id number] [address] [place] [address], [place] [address] Aug, [facility] [address] [id number] [address] [place] [address], [place] [address] 11 Aug, 2012 [facility] [address] [id number] [address] [place] [address], [place] [address] 29 Jul, 2012 [facility] [address] [id number] [address] [place] [address], [place] [address] 15 Jul, 2012 [facility] [address] [id number] [address] [place] [address], [place] [address] 08 Jul, 2012 [facility] [address] [id number] [address] [place] [address], [place] [address] 20 Jun, 2012 [facility] [address] [id number] [address] [place] [address], [place] [address] 18 Jun, 2012 [facility] [address] [id number] [address] [place] [address], [place] [address] 18 Jun, 2012 [facility] [address] [id number] [address] [place] [address], [place] [address] 18 Jun, 2012 [facility] [address] [id number] [address] [place] [address], [place] [address] 18 Jun, 2012 [facility] [address] [id number] [address] [place] [address], [place] [address] 14 Jun, 2012 [facility] [address] [id number] [address] [place] [address], [place] [address] 14 Jun, 2012 [facility] [address] [id number] [address] [place] [address], [place] [address] 13 Jun, 2012 [facility] [address] [id number] [address] [place] [address], [place] [address] 13 Jun, 2012 [facility] [address] [id number] [address] [place] [address], [place] [address] 11 Jun, 2012 [facility] [address] [id number] [address] [place] [address], [place] [address] 11 Jun, 2012 [facility] [address] [id number] [address] [place] [address], [place] [address] Jun, [facility] [address] [id number] [address] [place] [address], [place] [address] Jun, [facility] [address] [id number] [address] [place] [address], [place] [address] Jun, [facility] [address] [id number] [address] [place] [address], [place] [address] Jun, [facility] [address] [id number] [address] [place] [address], [place] [address] Jun, [facility] [address] [id number] [address] [place] [address], [place] [address] Jun, [facility] [address] [id number] [address] [place] [address], [place] [address] Jun, [facility] [address] [id number] [address] [place] [address], [place] [address] Jun, [facility] [address] [id number] [address] [place] [address], [place] [address] Jun, [facility] [address] [id number] [address] [place] [address], [place] [address] Jun, [facility] [address] [id number] [address] [place] [address], [place] [address] Jun, [facility] [address] [id number] [address] [place] [address], [place] [address] Jun, [facility] [address] [id number] [address] [place] [address], [place] [address] May, [facility] [address] [id number] [address] [place] [address], [place] [address] May, [facility] [address] [id number] [address] [place] [address], [place] [address] May, [facility] [address] [id number] [address] [place] [address], [place] [address] May, [facility] [address] [id number] [address] [place] [id number] 08 May, 2012 [facility] [address] [id number] [address] [place] [address], [place] [address] May, [facility] [address] [id number] [address] [place] [id number] May, [facility] [address] [id number] [address] [place] [address], [place] [address] May, [facility] [address] [id number] [address] [place] [id number] Apr, [facility] [address] [id number] [address] [place] [address], [place] [address] Apr, [facility] [address] [id number] [address] [place] [address], [place] [address] Apr, [facility] [address] [id number] [address] [place] [address] Apr, [facility] [address] [id number] [address] [place] [address] Apr, [facility] [address] [id number] [address] [place] [id number] Apr, [facility] [address] [id number] [address] [place] [address] Apr, [facility] [address] [id number] [address] [place] [id number] Apr, [facility] [address] [id number] [address] [place] [id number] Apr, [facility] [address] [id number] [address] [place] [id number] Apr, [facility] [address] [id number] [address] [place] [id number] Apr, [facility] [address] [id number] [address] [place] [id number] Apr, [facility] [address] [id number] [address] [place] [address], [place] [address] 19 Mar, 2011 [facility] [address] [id number] [address] [place] [address], [place] [address] 18 Mar, 2011 [facility] [address] [id number] [address] [place] [address], [place] [address] 12 Mar, 2011 [facility] [address] [id number] [address] [place] [address], [place] [address] 12 Mar, 2011 [facility] [address] [id number] [address] [place] [address], [place] [id number] 12 Mar, 2011 [facility] [address] [id number] [address] [place] [address], [place] [id number] 12 Mar, 2012 [facility] [address] [id number] [address] [place] [address], [place] [address] 04 Mar, 2012 [facility] [address] [id number] [address] [place] [address], [place] [address] 29 Feb, 2012 [facility] [address] [id number] [address] [place] [address], [place] [address] Jan, [facility] [address] [id number] [address] [place] [address], [place] [id number] Jan, [facility] [address] [id number] [address] [place] [id number] Jan, [facility] [address] [id number] [address] [place] [address], [place] [address] 17 Feb, 2012 [facility] [address] [id number] [address] [place] [address], [place] [address] 16 Feb, 2012 [facility] [address] [id number] [address] [place] [address], [place] [address] 16 Feb, 2012 [facility] [address] [id number] [address] [place] [address], [place] [address] 14 Feb, 2012 [facility] [address] [id number] [address] [place] [address], [place] [address] Jan, [facility] [address] [id number] [address] [place] [address], [place] [address] Jan, [facility] [address] [id number] [address] [place] [address], [place] [address] Jan, [facility] [address] [id number] [address] [place] [address], [place] [address] Dec, [facility] [address] [id number] [address] [place] [address], [place] [address] Dec, [facility] [address] [id number] [address] [place] [address], [place] [address] Dec, [facility] [address] [id number] [address] [place] [address], [place] [address] Dec, [facility] [address] [id number] [address] [place] [address], [place] [address] Dec, [facility] [address] [id number] [address] [place] [address], [place] [address] Dec, [facility] [address] [id number] [address] [place] [address], [place] [address] Dec, [facility] [address] [id number] [address] [place] [address], [place] [address] Dec, [facility] [address] [id number] [address] [place] [address], [place] [address] 16 Jan, 2012 [facility] [address] [id number] [address] [place] [address], [place] [address] Dec, [facility] [address] [id number] [address] [place] [address], [place] [address] Dec, [facility] [address] [id number] [address] [place] [address], [place] [address] Dec, [facility] [address] [id number] [address] [place] [address], [place] [address] Dec, [facility] [address] [id number] [address] [place] [address], [place] [address] 27 Dec, 2011 [facility] [address] [id number] [address] [place] [address], [place] [address] 25 Dec, 2011 [facility] [address] [id number] [address] [place] [address], [place] [address] 18 Dec, 2011 [facility] [address] [id number] [address] [place] [address], [place] [address] 15 Dec, 2011 [facility] [address] [id number] [address] [place] [address], [place] [address] 06 Dec, 2011 [facility] [address] [id number] [address] [place] [address], [place] [address] 05 Dec, 2011 [facility] [address] [id number] [address] [place] [address], [place] [address] October, [facility] [address] [id number] [address] [place] [address], [place] [address] October, [facility] [address] [id number] [address] [place] [address], [place] [address] October, [facility] [address] [id number] [address] [place] [address], [place] [address] October, [facility] [address] [id number] [address] [place] [address], [place] [address] October, [facility] [address] [id number] [address] [place] [address], [place] [address] October, [facility] [address] [id number] [address] [place] [address], [place] [address] Oct, [facility] [address] [id number] [address] [place] [address], [place] [address] 24 Oct, 2011 [facility] [address] [id number] [address] [place] [address], [place] [address] Oct, [facility] [address] [id number] [address] [place] [address], [place] [address] Oct, [facility] [address] [id number] [facility] [address] 04 Oct, 2011 [facility] [address] [id number] [address] [place] [address], [place] [address] Oct, [facility] [address] [id number] [address] [place] [address], [place] [address] Oct, [facility] [address] [id number] [address] [place] [address], [place] [address] 29 Sep, 2011 [facility] [address] [id number] [address] [place] [address], [place] [address] 29 Sep, 2011 [facility] [address] [id number] [address] [place] [address], [place] [address] Aug, [facility] [address] [id number] [address] [place] [address], [place] [address] Aug, [facility] [address] [id number] [address] [place] [address], [place] [address] Aug, [facility] [address] [id number] [address] [place] [address], [place] [address] Aug, [facility] [address] [id number] [address] [place] [address], [place] [address] Aug, [facility] [address] [id number] [address] [place] [address], [place] [address] Aug, [facility] [address] [id number] [address] [place] [address], [place] [address] Aug, [facility] [address] [id number] [address] [place] [address], [place] [address] Jul, [facility] [address] [id number] [address] [place] [address], [place] [address] Jul, [facility] [address] [id number] [address] [place] [address], [place] [address] Jul, [facility] [address] [id number] [place] [address] Jul, [facility] [address] [id number] [address] [place] [address], [place] [address] Jun, [facility] [address] [id number] [address] [place] [address], [place] [address] Jun, [facility] [address] [id number] [address] [place] [address], [place] [address] May, [facility] [address] [id number] [address] [place] [address], [place] [address] May, [facility] [address] [id number] [address] [place] [address], [place] [address] May, [facility] [address] [id number] [address] [place] [address], [place] [address] May, [facility] [address] [id number] [address] [place] [address], [place] [address] May, [facility] [address] [id number] [address] [place] [address], [place] [address] Apr, [facility] [address] [id number] [address] [place] [address], [place] [address] Apr, [facility] [address] [id number] [address] [place] [address], [place] [address] Apr, [facility] [address] [id number] [address] [place] [address], [place] [address] 15 Jan, 2011 [facility] [address] [id number] [address] [place] [address], [place] [address] Dec, [facility] [address] [id number] [address] [place] [address], [place] [address] October, [facility] [address] [id number] [address] [place] [address], [place] [address] Jun, [facility] [address] [id number] [address] [place] [address], [place] [address] Apr, [facility] [address] [id number] [address] [place] [address] Apr, [facility] [address] [facility] [id number] [address] [place] [address] Apr, [facility] [address] [facility] [id number] [address] [place] [address] Jun, IMMUNIZATIONS No Known Immunizations SOCIAL HISTORY Never Assessed REASON FOR VISIT adderall 02/21/2018 PLAN OF CARE VITAL SIGNS MEDICATIONS Medication Instructions Dosage Frequency Start Date End Date Duration S tatus Adderall 10 mg Orally 3 times a day 1 tablet 8h Jan, 28 days Active RESULTS No Results PROCEDURES No Known procedures INSTRUCTIONS MEDICATIONS ADMINISTERED No Known Medications MEDICAL (GENERAL) HISTORY Type Description Date Medical History Psychiatric disorder Medical History Hard of hearing Surgical History Neofibrous tumor Surgical History back injection Hospitalization History Intestinal blockage Hospitalization History past psychiatric hospitalizations x2
--- OUTSIDE RECORDS SUMMARY | 2020-01-25 13:09 | XMS REPORT ---
Author Author Ana ESCAMILLA KWAME [facility] Address [address] [place] [address] Care Team Providers Care Vamp Stitcher Name Role Phone FRANCINE, KWAME Unavailable PROBLEMS Type Condition ICD9-CM Code [id number] Code Onset Dates Condition S tatus SNOMED Code Problem Attention deficit R41.840 Active 76 702443 Problem Cannabis abuse F12.10 Active 75933 009 Problem Chronic hepatitis C without hepatic coma B18.2 Active 186066114 Problem Attention deficit hyperactivity disorder (ADHD), combi luciano type F90.2 Active 90274499 Problem Bipolar disorder, in partial remission, most rec ent episode hypomanic F31.71 Active 496077180 Problem H/O laminectomy Z98.89 Active 1616 16694 Problem Bipolar 1 disorder F31.9 Active 3 57714924 Problem Anxiety disorder, unspecified type F41.9 Active 402526403 Problem Other chronic pain G89.29 Active 8 3317802 ALLERGIES No Information ENCOUNTERS Encounter Location Date Diagnosis [facility] [address] [id number] [address] [place] [address] Apr, [facility] [address] [facility] [id number] [address] [place] [address] Mar, [facility] [address] [id number] [address] [place] [address] Mar, Bipolar disorder, in partial remission, most recent episode hypomanic F31.71 ; Encounter for immunization Z23 and Low back pain M54.5 [facility] [address] [facility] [id number] [address] [place] [phone] 17 Mar, 2018 Bipolar disorder, in partial remission, most recent episode hypomanic F31.71 [facility] [address] [facility] [id number] [address] [place] [address] Mar, Bipolar disorder, in partial remission, most recent episode hypomanic F31.71 [facility] [address] [id number] [address] [place] [address] Jan, Bipolar disorder, in partial remission, most recent episode hypomanic F31.71 [facility] [address] [id number] [address] [place] [address] Jan, Bipolar disorder, in partial remission, most recent episode hypomanic F31.71 [facility] [address] [id number] [address] [place] [address] Dec, Bipolar disorder, in partial remission, most recent episode hypomanic F31.71 [facility] [address] [id number] [address] [place] [address] Dec, Bipolar disorder, in partial remission, most recent episode hypomanic F31.71 ; Attention deficit hyperactivity disorder (ADHD), combined type F90.2 ; Anxiety disorder, unspecified type F41.9 and 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 [facility] [address] [facility] [id number] [address] [place] [address] Dec, Bipolar disorder, in partial remission, most recent episode hypomanic F31.71 [facility] [address] [id number] [address] [place] [address] Dec, Bipolar disorder, in partial remission, most recent episode hypomanic F31.71 [facility] [address] [facility] [id number] [address] [place] [address] October, Bipolar disorder, in partial remission, most recent episode hypomanic F31.71 [facility] [address] [id number] [address] [place] [address] October, [facility] [address] [facility] [id number] [address] [place] [address] October, [facility] [address] [facility] [id number] [address] [place] [address] Oct, Bipolar disorder, in partial remission, most recent episode hypomanic F31.71 ; Attention deficit hyperactivity disorder (ADHD), combined type F90.2 ; Anxiety disorder, unspecified type F41.9 and Encounter for drug screening Z02.83 [facility] [address] [id number] [address] [place] [address] Oct, Bipolar disorder, in partial remission, most recent episode hypomanic F31.71 [facility] [address] [id number] [address] [place] [address] Oct, Bipolar disorder, in partial remission, most recent episode hypomanic F31.71 [facility] [address] [id number] [address] [place] [address] Aug, Bipolar disorder, in partial remission, most recent episode hypomanic F31.71 [facility] [address] [facility] [id number] [address] [place] [address] Aug, Bipolar disorder, in partial remission, most recent episode hypomanic F31.71 [facility] [address] [facility] [id number] [address] [place] [address] Aug, Bipolar disorder, in partial remission, most recent episode hypomanic F31.71 [facility] [address] [facility] [id number] [address] [place] [address] Jul, Bipolar disorder, in partial remission, most recent episode hypomanic F31.71 ; Attention deficit hyperactivity disorder (ADHD), combined type F90.2 and Anxiety disorder, unspecified type F41.9 [facility] [address] [facility] [id number] [address] [place] [address] Jul, Bipolar disorder, in partial remission, most recent episode hypomanic F31.71 [facility] [address] [facility] [id number] [address] [place] [address] Jun, Bipolar disorder, in partial remission, most recent episode hypomanic F31.71 [facility] [address] [facility] [id number] [address] [place] [address] May, Bipolar disorder, in partial remission, most recent episode hypomanic F31.71 [facility] [address] [id number] [address] [place] [phone] 15 May, 2017 Bipolar disorder, in partial remission, most recent episode hypomanic F31.71 [facility] [address] [facility] [id number] [address] [place] [address] Apr, [facility] [address] [facility] [id number] [address] [place] [address] Apr, Bipolar disorder, in partial remission, most recent episode hypomanic F31.71 ; Attention deficit hyperactivity disorder (ADHD), combined type F90.2 ; Anxiety disorder, unspecified type F41.9 and Cannabis abuse F12.10 [facility] [address] [id number] [address] [place] [phone] Apr, Attention deficit hyperactiv ity disorder (ADHD), combined type F90.2 [facility] [address] [facility] [id number] [address] [place] [address] Mar, Attention deficit hyperactiv ity disorder (ADHD), combined type F90.2 [facility] [address] [id number] [address] [place] [address] 14 Mar, 2017 Anxiety disorder, unspecifie d type F41.9 [facility] [address] [facility] [id number] [address] [place] [address] Jan, Attention deficit hyperactiv ity disorder (ADHD), combined type F90.2 [facility] [address] [facility] [id number] [address] [place] [address] Jan, Anxiety disorder, unspecifie d type F41.9 [facility] [address] [facility] [id number] [address] [place] [address] Jan, Other chronic pain G89.29 ; Chronic hepatitis C without hepatic coma B18.2 and Bipolar 1 disorder F31.9 [facility] [address] [facility] [id number] [address] [place] [address] Dec, Attention deficit hyperactiv ity disorder (ADHD), combined type F90.2 [facility] [address] [id number] [address] [place] [address] Dec, Bipolar disorder, in partial remission, most recent episode hypomanic F31.71 ; Attention deficit hyperactivity disorder (ADHD), combined type F90.2 and Anxiety disorder, unspecified type F41.9 [facility] [address] [id number] [address] [place] [address] Dec, Bipolar disorder, in partial remission, most recent episode hypomanic F31.71 ; Attention deficit hyperactivity disorder (ADHD), combined type F90.2 and Anxiety disorder, unspecified type F41.9 [facility] [address] [id number] [address] [place] [address] Dec, Bipolar 1 disorder F31.9 and Attention deficit R41.840 [facility] [address] [id number] [address] [place] [address] Oct, Other chronic pain G89.29 ; Alopecia L65.9 and Screening, lipid Z13.220 [facility] [address] [id number] [address] [place] [address] Oct, [facility] [address] [id number] [address] [place] [address] Aug, [facility] [address] [facility] [id number] [address] [place] [address] Aug, Eustachian tube dysfunction, right H69.81 ; Vertigo R42 and Other chronic pain G89.29 [facility] [address] [id number] [address] [place] [address] Aug, [facility] [address] [id number] [address] [place] [phone] Jun, [facility] [address] [facility] [id number] [address] [place] [address] Jun, Low back pain M54.5 and Othe r chronic pain G89.29 [facility] [address] [id number] [address] [place] [address] Jun, [facility] [address] [facility] [id number] [address] [place] [address] May, [facility] [address] [facility] [id number] [address] [place] [address] Jan, [facility] [address] [facility] [id number] [address] [place] [address] Dec, [facility] [id number] [place] [address] Dec, [facility] [address] [facility] [id number] [address] [place] [phone] Jun, [facility] [id number] [place] [address] Apr, Eustachian tube dysfunction, unspecified laterality H69.80 ; Hot flashes N95.1 and Encounter for immunization Z23 [facility] [id number] [place] [phone] Jan, [facility] [address] [address] Jan, [facility] [address] [id number] [address] [place] [address] Jan, [facility] [address] [phone] Jan, [facility] [address] [address] Jan, Encounter to establish care V65.8 ; Bipolar 1 disorder 296.7 ; Abdominal pain 789.00 ; Constipation 564.00 ; Hard of hearing 389.9 and Drug abuse 305.90 [facility] [address] [facility] [id number] [address] [place] [address] Dec, [facility] [id number] [place] [phone] October, [facility] [address] [id number] [address] [place] [address], [place] [address] October, [facility] [address] [id number] [address] [place] [address], [place] [address] 30 Oct, 2014 [facility] [address] [id number] [address] [place] [address], [place] [address] Oct, [facility] [address] [id number] [address] [place] [address], [place] [address] Oct, [facility] [address] [id number] [address] [place] [address], [place] [address] Aug, [facility] [address] [id number] [address] [place] [address], [place] [address] Aug, [facility] [address] [id number] [address] [place] [address], [place] [address] Aug, [facility] [address] [id number] [address] [place] [address], [place] [address] Aug, 2014 [facility] [address] [id number] [address] [place] [address], [place] [address] Aug, [facility] [address] [id number] [address] [place] [address], [place] [address] Aug, [facility] [address] [id number] [address] [place] [address], [place] [address] Aug, 2014 [facility] [address] [id number] [address] [place] [address], [place] [address] Aug, 2014 [facility] [address] [id number] [address] [place] [address], [place] [address] Aug, 2014 [facility] [address] [id number] [address] [place] [address], [place] [address] Aug, 2014 [facility] [address] [id number] [address] [place] [address], [place] [address] Aug, 2014 [facility] [address] [id number] [address] [place] [address], [place] [address] Aug, [facility] [address] [id number] [address] [place] [address], [place] [address] Aug, [facility] [address] [id number] [address] [place] [address], [place] [address] Aug, [facility] [address] [id number] [address] [place] [address], [place] [address] Aug, [facility] [address] [id number] [address] [place] [address], [place] [address] Jul, [facility] [address] [id number] [address] [place] [address], [place] [address] Jul, [facility] [address] [id number] [address] [place] [address], [place] [address] Jul, [facility] [address] [id number] [address] [place] [address], [place] [address] Jul, [facility] [address] [id number] [address] [place] [address], [place] [address] Jul, [facility] [address] [id number] [address] [place] [address], [place] [address] Jul, [facility] [address] [id number] [address] [place] [address], [place] [address] Jul, [facility] [address] [id number] [address] [place] [address], [place] [address] Jul, [facility] [address] [id number] [address] [place] [address], [place] [address] Jun, [facility] [address] [id number] [address] [place] [address], [place] [address] Jun, [facility] [address] [id number] [address] [place] [address], [place] [address] Jun, [facility] [address] [id number] [address] [place] [address], [place] [address] Jun, [facility] [address] [id number] [address] [place] [address], [place] [address] Jun, [facility] [address] [id number] [address] [place] [address], [place] [address] Jun, [facility] [address] [id number] [address] [place] [address], [place] [address] Jun, [facility] [address] [id number] [address] [place] [address], [place] [address] Jun, [facility] [address] [id number] [address] [place] [address], [place] [address] Jun, [facility] [address] [id number] [address] [place] [address], [place] [address] Jun, [facility] [address] [id number] [address] [place] [address], [place] [address] Jun, [facility] [address] [id number] [address] [place] [address], [place] [address] May, [facility] [address] [id number] [address] [place] [address], [place] [address] May, [facility] [address] [id number] [address] [place] [address], [place] [address] May, [facility] [address] [id number] [address] [place] [address], [place] [address] May, [facility] [address] [id number] [address] [place] [address], [place] [address] May, [facility] [address] [id number] [address] [place] [address], [place] [address] May, [facility] [address] [id number] [address] [place] [address], [place] [address] May, [facility] [address] [id number] [address] [place] [address], [place] [address] Apr, [facility] [address] [id number] [address] [place] [address], [place] [address] Apr, [facility] [address] [id number] [address] [place] [address], [place] [address] Apr, [facility] [address] [id number] [address] [place] [address], [place] [address] Apr, [facility] [address] [id number] [address] [place] [address], [place] [address] Apr, [facility] [address] [id number] [address] [place] [address], [place] [address] Apr, [facility] [address] [id number] [address] [place] [address], [place] [address] Mar, [facility] [address] [id number] [address] [place] [address], [place] [address] Mar, [facility] [address] [id number] [address] [place] [address], [place] [address] Mar, [facility] [address] [id number] [address] [place] [address], [place] [address] Mar, [facility] [address] [id number] [address] [place] [address], [place] [address] Mar, [facility] [address] [id number] [address] [place] [address], [place] [address] Mar, [facility] [address] [id number] [address] [place] [address], [place] [address] Jan, [facility] [address] [id number] [address] [place] [address], [place] [address] Jan, [facility] [address] [id number] [address] [place] [address], [place] [address] Jan, [facility] [address] [id number] [address] [place] [address], [place] [address] Jan, [facility] [address] [id number] [address] [place] [address], [place] [address] Dec, [facility] [address] [id number] [facility] [place] [address] Dec, [facility] [address] [id number] [facility] [place] [address] Dec, [facility] [address] [id number] [address] [place] [address], [place] [address] Dec, [facility] [address] [id number] [address] [place] [address], [place] [address] Dec, [facility] [address] [id number] [address] [place] [address], [place] [address] Dec, [facility] [address] [id number] [address] [place] [address], [place] [address] Dec, [facility] [address] [id number] [address] [place] [address], [place] [address] Dec, [facility] [address] [id number] [address] [place] [address], [place] [address] Dec, [facility] [address] [id number] [address] [place] [address], [place] [address] Dec, [facility] [address] [id number] [address] [place] [address], [place] [address] Dec, [facility] [address] [id number] [address] [place] [address], [place] [address] Dec, [facility] [address] [id number] [address] [place] [address], [place] [address] October, [facility] [address] [id number] [address] [place] [address], [place] [address] October, [facility] [address] [id number] [address] [place] [address], [place] [address] October, [facility] [address] [id number] [address] [place] [address], [place] [address] October, [facility] [address] [id number] [address] [place] [address], [place] [address] October, [facility] [address] [id number] [address] [place] [address], [place] [address] October, [facility] [address] [id number] [address] [place] [address], [place] [address] Oct, [facility] [address] [id number] [address] [place] [address], [place] [address] Oct, [facility] [address] [id number] [address] [place] [address], [place] [address] Oct, [facility] [address] [id number] [address] [place] [address], [place] [address] Oct, [facility] [address] [id number] [address] [place] [address], [place] [address] Oct, [facility] [address] [id number] [address] [place] [address], [place] [address] Oct, [facility] [address] [id number] [address] [place] [address], [place] [address] Oct, [facility] [address] [id number] [address] [place] [address], [place] [address] Oct, [facility] [address] [id number] [address] [place] [address], [place] [address] Oct, [facility] [address] [id number] [address] [place] [address], [place] [address] Oct, [facility] [address] [id number] [address] [place] [address], [place] [address] Oct, [facility] [address] [id number] [address] [place] [address], [place] [address] Oct, [facility] [address] [id number] [address] [place] [address], [place] [address] Aug, [facility] [address] [id number] [address] [place] [address], [place] [address] Aug, [facility] [address] [id number] [address] [place] [address], [place] [address] 11 Aug, 2013 [facility] [address] [id number] [address] [place] [address], [place] [address] Aug, [facility] [address] [id number] [address] [place] [address], [place] [address] 05 Aug, 2013 [facility] [address] [id number] [address] [place] [address], [place] [address] 05 Aug, 2013 [facility] [address] [id number] [address] [place] [address], [place] [address] Aug, [facility] [address] [id number] [address] [place] [address], [place] [address] Aug, [facility] [address] [id number] [address] [place] [address], [place] [address] Aug, [facility] [address] [id number] [address] [place] [address], [place] [address] 24 Aug, 2013 [facility] [address] [id number] [address] [place] [address], [place] [address] 24 Aug, 2013 [facility] [address] [id number] [address] [place] [address], [place] [address] Aug, [facility] [address] [id number] [address] [place] [address], [place] [address] Aug, [facility] [address] [id number] [address] [place] [address], [place] [address] 20 Aug, 2013 [facility] [address] [id number] [address] [place] [address], [place] [address] 14 Aug, 2013 [facility] [address] [id number] [address] [place] [address], [place] [address] 14 Aug, 2013 [facility] [address] [id number] [address] [place] [address], [place] [address] 14 Aug, 2013 [facility] [address] [id number] [address] [place] [address], [place] [address] 14 Aug, 2013 [facility] [address] [id number] [address] [place] [address], [place] [address] 07 Aug, 2013 [facility] [address] [id number] [address] [place] [address], [place] [address] 07 Aug, 2013 [facility] [address] [id number] [address] [place] [address], [place] [address] 06 Aug, 2013 [facility] [address] [id number] [address] [place] [address], [place] [address] Aug, [facility] [address] [id number] [address] [place] [address], [place] [address] Aug, [facility] [address] [id number] [address] [place] [address], [place] [address] Aug, [facility] [address] [id number] [address] [place] [address], [place] [address] Aug, [facility] [address] [id number] [address] [place] [address], [place] [address] Jul, [facility] [address] [id number] [address] [place] [address], [place] [address] Jul, [facility] [address] [id number] [address] [place] [address], [place] [address] Jul, [facility] [address] [id number] [address] [place] [address], [place] [address] Jul, [facility] [address] [id number] [address] [place] [address], [place] [address] Jul, [facility] [address] [id number] [address] [place] [address], [place] [address] Jul, [facility] [address] [id number] [address] [place] [address], [place] [address] Jul, [facility] [address] [id number] [address] [place] [address], [place] [address] Jul, [facility] [address] [id number] [address] [place] [address], [place] [address] Jul, [facility] [address] [id number] [address] [place] [address], [place] [address] Jul, [facility] [address] [id number] [address] [place] [address], [place] [address] Jul, [facility] [address] [id number] [address] [place] [address], [place] [address] Jul, [facility] [address] [id number] [address] [place] [address], [place] [address] Jul, [facility] [address] [id number] [address] [place] [address], [place] [address] Jul, [facility] [address] [id number] [address] [place] [address], [place] [address] Jul, [facility] [address] [id number] [address] [place] [address], [place] [address] Jul, [facility] [address] [id number] [address] [place] [address], [place] [address] Jul, [facility] [address] [id number] [address] [place] [address], [place] [address] Jul, [facility] [address] [id number] [address] [place] [address], [place] [address] Jul, [facility] [address] [id number] [address] [place] [address], [place] [address] Jul, [facility] [address] [id number] [address] [place] [address], [place] [address] Jun, [facility] [address] [id number] [address] [place] [address], [place] [address] Jun, [facility] [address] [id number] [address] [place] [address], [place] [address] Jun, [facility] [address] [id number] [address] [place] [address], [place] [address] 30 Jun, 2013 [facility] [address] [id number] [address] [place] [address], [place] [address] Jun, [facility] [address] [id number] [address] [place] [address], [place] [address] Jun, [facility] [address] [id number] [address] [place] [address], [place] [address] Jun, [facility] [address] [id number] [address] [place] [address], [place] [address] Jun, [facility] [address] [id number] [address] [place] [address], [place] [address] Jun, [facility] [address] [id number] [address] [place] [address], [place] [address] Jun, [facility] [address] [id number] [address] [place] [address], [place] [address] Jun, [facility] [address] [id number] [address] [place] [address], [place] [address] Jun, [facility] [address] [id number] [address] [place] [address], [place] [address] Jun, [facility] [address] [id number] [address] [place] [address], [place] [address] Jun, [facility] [address] [id number] [address] [place] [address], [place] [address] Jun, [facility] [address] [id number] [address] [place] [address], [place] [address] 18 Jun, 2013 [facility] [address] [id number] [address] [place] [address], [place] [address] Jun, [facility] [address] [id number] [address] [place] [address], [place] [address] 17 Jun, 2013 [facility] [address] [id number] [address] [place] [address], [place] [address] 17 Jun, 2013 [facility] [address] [id number] [address] [place] [address], [place] [address] 13 Jun, 2013 [facility] [address] [id number] [address] [place] [address], [place] [address] Jun, [facility] [address] [id number] [address] [place] [address], [place] [address] Jun, [facility] [address] [id number] [address] [place] [address], [place] [address] Jun, [facility] [address] [id number] [address] [place] [address], [place] [address] Jun, [facility] [address] [id number] [address] [place] [address], [place] [address] Jun, [facility] [address] [id number] [address] [place] [address], [place] [address] Jun, [facility] [address] [id number] [address] [place] [address], [place] [address] Jun, [facility] [address] [id number] [address] [place] [address], [place] [address] May, [facility] [address] [id number] [address] [place] [address], [place] [address] May, [facility] [address] [id number] [address] [place] [address], [place] [address] May, [facility] [address] [id number] [address] [place] [address], [place] [address] May, [facility] [address] [id number] [address] [place] [address], [place] [address] May, [facility] [address] [id number] [address] [place] [address], [place] [address] May, [facility] [address] [id number] [address] [place] [address], [place] [address] Apr, [facility] [address] [id number] [address] [place] [address], [place] [address] Apr, [facility] [address] [id number] [address] [place] [address], [place] [address] 30 Apr, 2013 [facility] [address] [id number] [address] [place] [address], [place] [address] 30 Apr, 2013 [facility] [address] [id number] [address] [place] [address], [place] [address] Apr, [facility] [address] [id number] [address] [place] [address], [place] [address] 15 Apr, 2013 [facility] [address] [id number] [address] [place] [address], [place] [address] 15 Apr, 2013 [facility] [address] [id number] [address] [place] [address], [place] [address] Apr, [facility] [address] [id number] [address] [place] [address], [place] [address] 26 Mar, 2012 [facility] [address] [id number] [address] [place] [address], [place] [address] 24 Mar, 2012 [facility] [address] [id number] [address] [place] [address], [place] [address] 17 Mar, 2012 [facility] [address] [id number] [address] [place] [address], [place] [address] 17 Mar, 2012 [facility] [address] [id number] [address] [place] [address] 11 Mar, 2012 [facility] [address] [id number] [address] [place] [address] 10 Mar, 2012 [facility] [address] [id number] [address] [place] [address], [place] [address] 05 Sep, 2012 [facility] [address] [id number] [address] [place] [address], [place] [address] 04 Mar, 2012 [facility] [address] [id number] [address] [place] [address] 20 Jan, 2013 [facility] [address] [id number] [address] [place] [address] Jan, [facility] [address] [id number] [address] [place] [address], [place] [address] Jan, [facility] [address] [id number] [address] [place] [address], [place] [address] Jan, [facility] [address] [id number] [address] [place] [address], [place] [address] Jan, [facility] [address] [id number] [address] [place] [address], [place] [address] 05 Jan, 2013 [facility] [address] [id number] [address] [place] [address], [place] [address] Dec, [facility] [address] [id number] [address] [place] [address], [place] [address] 24 Dec, 2012 [facility] [address] [id number] [address] [place] [address], [place] [address] Dec, [facility] [address] [id number] [address] [place] [address], [place] [address] Dec, [facility] [address] [id number] [address] [place] [address], [place] [address] Dec, [facility] [address] [id number] [address] [place] [address], [place] [address] 17 Dec, 2012 [facility] [address] [id number] [address] [place] [address], [place] [address] 16 Dec, 2012 [facility] [address] [id number] [address] [place] [address], [place] [address] 16 Dec, 2012 [facility] [address] [id number] [address] [place] [address], [place] [address] 15 Dec, 2012 [facility] [address] [id number] [address] [place] [address], [place] [address] 10 Dec, 2012 [facility] [address] [id number] [address] [place] [address], [place] [address] Dec, [facility] [address] [id number] [address] [place] [address], [place] [address] Dec, [facility] [address] [id number] [address] [place] [address], [place] [address] Dec, [facility] [address] [id number] [address] [place] [address], [place] [address] Dec, [facility] [address] [id number] [address] [place] [address], [place] [address] Dec, [facility] [address] [id number] [address] [place] [address], [place] [address] Dec, [facility] [address] [id number] [address] [place] [address], [place] [address] October, [facility] [address] [id number] [address] [place] [address], [place] [address] October, [facility] [address] [id number] [address] [place] [address], [place] [address] October, [facility] [address] [id number] [address] [place] [address], [place] [address] October, [facility] [address] [id number] [address] [place] [address], [place] [address] October, [facility] [address] [id number] [address] [place] [address], [place] [address] October, [facility] [address] [id number] [address] [place] [address], [place] [address] October, [facility] [address] [id number] [address] [place] [address], [place] [address] Oct, [facility] [address] [id number] [address] [place] [address], [place] [address] Oct, [facility] [address] [id number] [address] [place] [address], [place] [address] Oct, [facility] [address] [id number] [address] [place] [address], [place] [address] Oct, [facility] [address] [id number] [address] [place] [address], [place] [address] Oct, [facility] [address] [id number] [address] [place] [address], [place] [address] 18 Oct, 2012 [facility] [address] [id number] [address] [place] [address], [place] [address] 17 Oct, 2012 [facility] [address] [id number] [address] [place] [address], [place] [address] 15 Oct, 2012 [facility] [address] [id number] [address] [place] [address], [place] [address] Oct, [facility] [address] [id number] [address] [place] [address], [place] [address] Oct, [facility] [address] [id number] [address] [place] [address], [place] [address] Oct, [facility] [address] [id number] [address] [place] [address], [place] [address] Oct, [facility] [address] [id number] [address] [place] [address], [place] [address] Aug, [facility] [address] [id number] [address] [place] [address], [place] [address] Aug, [facility] [address] [id number] [address] [place] [address], [place] [address] Aug, [facility] [address] [id number] [address] [place] [address], [place] [address] Aug, [facility] [address] [id number] [address] [place] [address], [place] [address] Aug, [facility] [address] [id number] [address] [place] [address], [place] [address] Aug, [facility] [address] [id number] [address] [place] [address], [place] [address] Aug, [facility] [address] [id number] [address] [place] [address], [place] [address] 14 Aug, 2012 [facility] [address] [id number] [address] [place] [address], [place] [address] 12 Aug, 2012 [facility] [address] [id number] [address] [place] [address], [place] [address] 11 Aug, 2012 [facility] [address] [id number] [address] [place] [address], [place] [address] 29 Jul, 2012 [facility] [address] [id number] [address] [place] [address], [place] [address] 15 Jul, 2012 [facility] [address] [id number] [address] [place] [address], [place] [address] 08 Jul, 2012 [facility] [address] [id number] [address] [place] [address], [place] [address] 20 Jun, 2012 [facility] [address] [id number] [address] [place] [address], [place] [address] 18 Jun, 2012 [facility] [address] [id number] [address] [place] [address], [place] [address] 18 Jun, 2012 [facility] [address] [id number] [address] [place] [address], [place] [address] 18 Jun, 2012 [facility] [address] [id number] [address] [place] [address], [place] [address] 18 Jun, 2012 [facility] [address] [id number] [address] [place] [address], [place] [address] 14 Jun, 2012 [facility] [address] [id number] [address] [place] [address], [place] [address] 14 Jun, 2012 [facility] [address] [id number] [address] [place] [address], [place] [address] 13 Jun, 2012 [facility] [address] [id number] [address] [place] [address], [place] [address] 13 Jun, 2012 [facility] [address] [id number] [address] [place] [address], [place] [address] Jun, [facility] [address] [id number] [address] [place] [address], [place] [address] Jun, [facility] [address] [id number] [address] [place] [address], [place] [address] Jun, [facility] [address] [id number] [address] [place] [address], [place] [address] Jun, [facility] [address] [id number] [address] [place] [address], [place] [address] Jun, [facility] [address] [id number] [address] [place] [address], [place] [address] Jun, [facility] [address] [id number] [address] [place] [address], [place] [address] Jun, [facility] [address] [id number] [address] [place] [address], [place] [address] Jun, [facility] [address] [id number] [address] [place] [address], [place] [address] Jun, [facility] [address] [id number] [address] [place] [address], [place] [address] Jun, [facility] [address] [id number] [address] [place] [address], [place] [address] Jun, [facility] [address] [id number] [address] [place] [address], [place] [address] Jun, [facility] [address] [id number] [address] [place] [address], [place] [address] Jun, [facility] [address] [id number] [address] [place] [address], [place] [address] Jun, [facility] [address] [id number] [address] [place] [address], [place] [address] May, [facility] [address] [id number] [address] [place] [address], [place] [address] May, [facility] [address] [id number] [address] [place] [id number] May, [facility] [address] [id number] [address] [place] [address], [place] [address] May, [facility] [address] [id number] [address] [place] [address] May, [facility] [address] [id number] [address] [place] [id number] May, [facility] [address] [id number] [address] [place] [address] May, [facility] [address] [id number] [address] [place] [address], [place] [address] May, [facility] [address] [id number] [address] [place] [address] Apr, [facility] [address] [id number] [address] [place] [id number] Apr, [facility] [address] [id number] [address] [place] [address] Apr, [facility] [address] [id number] [address] [place] [address] Apr, [facility] [address] [id number] [address] [place] [id number] Apr, [facility] [address] [id number] [address] [place] [address] Apr, [facility] [address] [id number] [address] [place] [address] Apr, [facility] [address] [id number] [address] [place] [address] Apr, [facility] [address] [id number] [address] [place] [address] Apr, [facility] [address] [id number] [address] [place] [address] Apr, [facility] [address] [id number] [address] [place] [address], [place] [address] 04 Apr, 2012 [facility] [address] [id number] [address] [place] [address], [place] [address] Apr, [facility] [address] [id number] [address] [place] [address], [place] [address] 19 Mar, 2012 [facility] [address] [id number] [address] [place] [address], [place] [address] 18 Mar, 2012 [facility] [address] [id number] [address] [place] [address], [place] [address] 12 Mar, 2012 [facility] [address] [id number] [address] [place] [address], [place] [address] Mar, [facility] [address] [id number] [address] [place] [id number] Mar, [facility] [address] [id number] [address] [place] [id number] Mar, [facility] [address] [id number] [address] [place] [address], [place] [address] Mar, [facility] [address] [id number] [address] [place] [address], [place] [address] Jan, [facility] [address] [id number] [address] [place] [address], [place] [address] Jan, [facility] [address] [id number] [address] [place] [id number] Jan, [facility] [address] [id number] [address] [place] [id number] Jan, [facility] [address] [id number] [address] [place] [address], [place] [address] Jan, [facility] [address] [id number] [address] [place] [address], [place] [address] Jan, [facility] [address] [id number] [address] [place] [address], [place] [address] Jan, [facility] [address] [id number] [address] [place] [address], [place] [address] 14 Feb, 2012 [facility] [address] [id number] [address] [place] [address], [place] [address] Jan, [facility] [address] [id number] [address] [place] [address], [place] [address] Jan, [facility] [address] [id number] [address] [place] [address], [place] [address] Jan, [facility] [address] [id number] [address] [place] [address], [place] [address] Dec, [facility] [address] [id number] [address] [place] [address], [place] [address] Dec, [facility] [address] [id number] [address] [place] [address], [place] [address] Dec, [facility] [address] [id number] [address] [place] [address], [place] [address] Dec, [facility] [address] [id number] [address] [place] [address], [place] [address] Dec, [facility] [address] [id number] [address] [place] [address], [place] [address] Dec, [facility] [address] [id number] [address] [place] [address], [place] [address] 18 Jan, 2012 [facility] [address] [id number] [address] [place] [address], [place] [address] 17 Jan, 2012 [facility] [address] [id number] [address] [place] [address], [place] [address] 16 Jan, 2012 [facility] [address] [id number] [address] [place] [address], [place] [address] Dec, [facility] [address] [id number] [address] [place] [address], [place] [address] 13 Jan, 2012 [facility] [address] [id number] [address] [place] [address], [place] [address] Dec, [facility] [address] [id number] [address] [place] [address], [place] [address] Dec, [facility] [address] [id number] [address] [place] [address], [place] [address] Dec, [facility] [address] [id number] [address] [place] [address], [place] [address] Dec, [facility] [address] [id number] [address] [place] [address], [place] [address] 18 Dec, 2011 [facility] [address] [id number] [address] [place] [address], [place] [address] 15 Dec, 2011 [facility] [address] [id number] [address] [place] [address], [place] [address] 06 Dec, 2011 [facility] [address] [id number] [address] [place] [address], [place] [address] 05 Dec, 2011 [facility] [address] [id number] [address] [place] [address], [place] [address] October, [facility] [address] [id number] [address] [place] [address], [place] [address] October, [facility] [address] [id number] [address] [place] [address], [place] [address] October, [facility] [address] [id number] [address] [place] [address], [place] [address] October, [facility] [address] [id number] [address] [place] [address], [place] [address] October, [facility] [address] [id number] [address] [place] [address], [place] [address] October, [facility] [address] [id number] [address] [place] [address], [place] [address] Oct, [facility] [address] [id number] [address] [place] [address], [place] [address] Oct, [facility] [address] [id number] [address] [place] [address], [place] [address] Oct, [facility] [address] [id number] [address] [place] [address], [place] [address] Oct, [facility] [address] [id number] [address] [place] [address], [place] [address] Oct, [facility] [address] [id number] [address] [place] [address], [place] [address] Oct, [facility] [address] [id number] [address] [place] [address], [place] [address] Oct, [facility] [address] [id number] [address] [place] [address], [place] [address] Aug, [facility] [address] [id number] [address] [place] [address], [place] [address] 29 Sep, 2011 [facility] [address] [id number] [address] [place] [address], [place] [address] Aug, [facility] [address] [id number] [address] [place] [address], [place] [address] Aug, [facility] [address] [id number] [address] [place] [address], [place] [address] Aug, [facility] [address] [id number] [address] [place] [address], [place] [address] Aug, [facility] [address] [id number] [address] [place] [address], [place] [address] Aug, [facility] [address] [id number] [address] [place] [address], [place] [address] Aug, [facility] [address] [id number] [address] [place] [address], [place] [address] 08 Aug, 2011 [facility] [address] [id number] [address] [place] [address], [place] [address] Jul, [facility] [address] [id number] [address] [place] [address], [place] [address] Jul, [facility] [address] [id number] [address] [place] [address], [place] [address] Jul, [facility] [address] [id number] [address] [place] [address], [place] [address] Jul, [facility] [address] [id number] [address] [place] [address], [place] [address] Jun, [facility] [address] [id number] [address] [place] [address], [place] [address] Jun, [facility] [address] [id number] [address] [place] [address], [place] [address] May, [facility] [address] [id number] [address] [place] [address], [place] [address] May, [facility] [address] [id number] [address] [place] [address], [place] [address] May, [facility] [address] [id number] [address] [place] [address], [place] [address] May, [facility] [address] [id number] [address] [place] [address], [place] [address] May, [facility] [address] [id number] [address] [place] [address], [place] [address] Apr, [facility] [address] [id number] [address] [place] [address], [place] [address] Apr, [facility] [address] [id number] [address] [place] [address], [place] [address] Apr, [facility] [address] [id number] [address] [place] [address], [place] [address] Jan, [facility] [address] [id number] [address] [place] [address], [place] [address] Dec, [facility] [address] [id number] [address] [place] [address], [place] [address] October, [facility] [address] [id number] [address] [place] [address] Jun, [facility] [address] [facility] [id number] [address] [place] [address] Apr, [facility] [address] [facility] [id number] [address] [place] [id number] Apr, [facility] [address] [facility] [id number] [address] [place] [address] Apr, [facility] [address] [facility] [id number] [address] [place] [address] Jun, IMMUNIZATIONS No Known Immunizations SOCIAL HISTORY Never Assessed REASON FOR VISIT adderall 03/21/2018 PLAN OF CARE VITAL SIGNS MEDICATIONS Medication Instructions Dosage Frequency Start Date End Date Duration S tatus Adderall 10 mg Orally 3 times a day 1 tablet 8h Mar, 28 days Active RESULTS No Results PROCEDURES No Known procedures INSTRUCTIONS MEDICATIONS ADMINISTERED No Known Medications MEDICAL (GENERAL) HISTORY Type Description Date Medical History Psychiatric disorder Medical History Hard of hearing Surgical History Neofibrous tumor Surgical History back injection Hospitalization History Intestinal blockage Hospitalization History past psychiatric hospitalizations x2
--- OUTSIDE RECORDS SUMMARY | 2020-01-25 13:10 | XMS REPORT ---
Author Author FRANCINE Ana SUTHERLANDN [facility] Address [address] [place] [address] Care Team Providers Care Theater Manager Name Role Phone Jackie ESCAMILLAYEN Unavailable PROBLEMS Type Condition ICD9-CM Code [id number] Code Onset Dates Condition S tatus SNOMED Code Problem Attention deficit R41.840 Active 76 571543 Problem Cannabis abuse F12.10 Active 81078 009 Problem Chronic hepatitis C without hepatic coma B18.2 Active 674804102 Problem Attention deficit hyperactivity disorder (ADHD), combi luciano type F90.2 Active 41768257 Problem Bipolar disorder, in partial remission, most rec ent episode hypomanic F31.71 Active 836071007 Problem H/O laminectomy Z98.89 Active 1616 63612 Problem Bipolar 1 disorder F31.9 Active 3 92183997 Problem Anxiety disorder, unspecified type F41.9 Active 211409292 Problem Other chronic pain G89.29 Active 8 5473606 ALLERGIES Substance Reaction Event Type Date Status Zyprexa Unknown Drug Allergy Dec, Active Amitiza Unknown Non Drug Allergy Dec, Active Hydrocodone Failed UDS (opiates, & THC) Non Drug Allergy Dec, 018 Active Benzodiazepines Failed UDS (opiates, & THC) Non Drug Allergy Dec Active ENCOUNTERS Encounter Location Date Diagnosis [facility] [address] [facility] [id number] [address] [place] [address] Apr, [facility] [address] [facility] [id number] [address] [place] [address] Mar, [facility] [address] [facility] [id number] [address] [place] [address] Jan, Bipolar disorder, in partial remission, most recent episode hypomanic F31.71 [facility] [address] [facility] [id number] [address] [place] [address] Jan, Bipolar disorder, in partial remission, most recent episode hypomanic F31.71 [facility] [address] [id number] [address] [place] [address] Dec, Bipolar disorder, in partial remission, most recent episode hypomanic F31.71 [facility] [address] [id number] [address] [place] [address] Dec, Bipolar disorder, in partial remission, most recent episode hypomanic F31.71 ; Attention deficit hyperactivity disorder (ADHD), combined type F90.2 ; Anxiety disorder, unspecified type F41.9 and Other penitentiary (current) drug therapy Z79.899 [facility] [address] [id number] [address] [place] [address] Dec, Bipolar disorder, in partial remission, most recent episode hypomanic F31.71 [facility] [address] [id number] [address] [place] [address] Dec, Bipolar disorder, in partial remission, most recent episode hypomanic F31.71 [facility] [address] [id number] [address] [place] [address] October, Bipolar disorder, in partial remission, most recent episode hypomanic F31.71 [facility] [address] [id number] [address] [place] [address] October, [facility] [address] [facility] [id number] [address] [place] [address] October, [facility] [address] [id number] [address] [place] [address] Oct, Bipolar disorder, in partial remission, most recent episode hypomanic F31.71 ; Attention deficit hyperactivity disorder (ADHD), combined type F90.2 ; Anxiety disorder, unspecified type F41.9 and Encounter for drug screening Z02.83 [facility] [address] [id number] [address] [place] [address] Oct, Bipolar disorder, in partial remission, most recent episode hypomanic F31.71 [facility] [address] [id number] [address] [place] [address] Oct, Bipolar disorder, in partial remission, most recent episode hypomanic F31.71 [facility] [address] [id number] [address] [place] [address] Aug, Bipolar disorder, in partial remission, most recent episode hypomanic F31.71 [facility] [address] [id number] [address] [place] [address] Aug, Bipolar disorder, in partial remission, most recent episode hypomanic F31.71 [facility] [address] [id number] [address] [place] [address] Aug, Bipolar disorder, in partial remission, most recent episode hypomanic F31.71 [facility] [address] [facility] [id number] [address] [place] [address] Jul, Bipolar disorder, in partial remission, most recent episode hypomanic F31.71 ; Attention deficit hyperactivity disorder (ADHD), combined type F90.2 and Anxiety disorder, unspecified type F41.9 [facility] [address] [id number] [address] [place] [address] Jul, Bipolar disorder, in partial remission, most recent episode hypomanic F31.71 [facility] [address] [facility] [id number] [address] [place] [address] Jun, Bipolar disorder, in partial remission, most recent episode hypomanic F31.71 [facility] [address] [facility] [id number] [address] [place] [address] May, Bipolar disorder, in partial remission, most recent episode hypomanic F31.71 [facility] [address] [facility] [id number] [address] [place] [address] May, Bipolar disorder, in partial remission, most recent episode hypomanic F31.71 [facility] [address] [id number] [address] [place] [address] Apr, [facility] [address] [facility] [id number] [address] [place] [address] Apr, Bipolar disorder, in partial remission, most recent episode hypomanic F31.71 ; Attention deficit hyperactivity disorder (ADHD), combined type F90.2 ; Anxiety disorder, unspecified type F41.9 and Cannabis abuse F12.10 [facility] [address] [facility] [id number] [address] [place] [address] 13 Apr, 2017 Attention deficit hyperactiv ity disorder (ADHD), combined type F90.2 [facility] [address] [facility] [id number] [address] [place] [address] Mar, Attention deficit hyperactiv ity disorder (ADHD), combined type F90.2 [facility] [address] [facility] [id number] [address] [place] [address] Mar, Anxiety disorder, unspecifie d type F41.9 [facility] [address] [facility] [id number] [address] [place] [address] Jan, Attention deficit hyperactiv ity disorder (ADHD), combined type F90.2 [facility] [address] [facility] [id number] [address] [place] [address] Jan, Anxiety disorder, unspecifie d type F41.9 [facility] [address] [facility] [id number] [address] [place] [address] Jan, Other chronic pain G89.29 ; Chronic hepatitis C without hepatic coma B18.2 and Bipolar 1 disorder F31.9 [facility] [address] [facility] [id number] [address] [place] [address] Dec, Attention deficit hyperactiv ity disorder (ADHD), combined type F90.2 [facility] [address] [facility] [id number] [address] [place] [address] Dec, Bipolar disorder, in partial remission, most recent episode hypomanic F31.71 ; Attention deficit hyperactivity disorder (ADHD), combined type F90.2 and Anxiety disorder, unspecified type F41.9 [facility] [address] [place] [id number] [address] [place] [address] Dec, Bipolar disorder, in partial remission, most recent episode hypomanic F31.71 ; Attention deficit hyperactivity disorder (ADHD), combined type F90.2 and Anxiety disorder, unspecified type F41.9 [facility] [address] [facility] [id number] [address] [place] [address] Dec, Bipolar 1 disorder F31.9 and Attention deficit R41.840 [facility] [address] [place] [id number] [address] [place] [address] Oct, Other chronic pain G89.29 ; Alopecia L65.9 and Screening, lipid Z13.220 [facility] [address] [place] [id number] [place] [address] Oct, [facility] [address] [place] [id number] [address] [place] [address] Aug, [facility] [address] [place] [id number] [address] [place] [address] Aug, Eustachian tube dysfunction, right H69.81 ; Vertigo R42 and Other chronic pain G89.29 [facility] [address] [place] [id number] [address] [place] [address] Aug, [facility] [address] [place] [id number] [address] [place] [address] Jun, [facility] [address] [place] [id number] [address] [place] [address] Jun, Low back pain M54.5 and Othe r chronic pain G89.29 [facility] [address] [facility] [id number] [address] [place] [phone] Jun, [facility] [address] [place] [id number] [address] [place] [address] May, [facility] [address] [place] [id number] [address] [place] [address] Jan, [facility] [id number] [place] [address] Dec, [facility] [address] [facility] [id number] [address] [place] [address] Dec, [facility] [address] [facility] [id number] [address] [place] [address] Jun, [facility] [address] [facility] [id number] [address] [place] [address] Apr, Eustachian tube dysfunction, unspecified laterality H69.80 ; Hot flashes N95.1 and Encounter for immunization Z23 [facility] [address] [facility] [id number] [address] [place] [address] Jan, [facility] [address] [facility] [id number] [address] [place] [address] Jan, [facility] [address] [place] [id number] [address] [place] [address] Jan, [facility] [address] [facility] [id number] [address] [place] [address] Jan, [facility] [address] [place] [id number] [address] [place] [address] Jan, Encounter to establish care V65.8 ; Bipolar 1 disorder 296.7 ; Abdominal pain 789.00 ; Constipation 564.00 ; Hard of hearing 389.9 and Drug abuse 305.90 [facility] [address] [facility] [id number] [address] [place] [address] Dec, [facility] [address] [facility] [id number] [address] [place] [address] October, [facility] [address] [place] [id number] [address] [place] [address] October, [facility] [address] [facility] [id number] [address] [place] [address] Oct, [facility] [address] [place] [id number] [address] [place] [address] 14 Oct, 2014 [facility] [address] [id number] [address] [place] [address], [place] [address] Oct, [facility] [address] [id number] [address] [place] [address], [place] [address] Aug, [facility] [address] [id number] [address] [place] [address], [place] [address] Aug, [facility] [address] [id number] [address] [place] [address], [place] [address] Aug, [facility] [address] [id number] [address] [place] [address], [place] [address] Aug, 2014 [facility] [address] [id number] [address] [place] [address], [place] [address] Aug, 2014 [facility] [address] [id number] [address] [place] [address], [place] [address] Aug, 2014 [facility] [address] [id number] [address] [place] [address], [place] [address] Aug, 2014 [facility] [address] [id number] [address] [place] [address], [place] [address] Aug, 2014 [facility] [address] [id number] [address] [place] [address], [place] [address] Aug, 2014 [facility] [address] [id number] [address] [place] [address], [place] [address] Aug, 2014 [facility] [address] [id number] [address] [place] [address], [place] [address] Aug, 2014 [facility] [address] [id number] [address] [place] [address], [place] [address] Aug, 2014 [facility] [address] [id number] [address] [place] [address], [place] [address] Aug, 2014 [facility] [address] [id number] [address] [place] [address], [place] [address] 05 Fe2014 [facility] [address] [id number] [address] [place] [address], [place] [address] Aug, [facility] [address] [id number] [address] [place] [address], [place] [address] Jul, [facility] [address] [id number] [address] [place] [address], [place] [address] Jul, [facility] [address] [id number] [address] [place] [address], [place] [address] Jul, [facility] [address] [id number] [address] [place] [address], [place] [address] Jul, [facility] [address] [id number] [address] [place] [address], [place] [address] Jul, [facility] [address] [id number] [address] [place] [address], [place] [address] Jul, [facility] [address] [id number] [address] [place] [address], [place] [address] Jul, [facility] [address] [id number] [address] [place] [address], [place] [address] Jul, [facility] [address] [id number] [address] [place] [address], [place] [address] Jun, [facility] [address] [id number] [address] [place] [address], [place] [address] Jun, [facility] [address] [id number] [address] [place] [address], [place] [address] Jun, [facility] [address] [id number] [address] [place] [address], [place] [address] Jun, [facility] [address] [id number] [address] [place] [address], [place] [address] 18 Jun, 2014 [facility] [address] [id number] [address] [place] [address], [place] [address] 15 Jun, 2014 [facility] [address] [id number] [address] [place] [address], [place] [address] Jun, [facility] [address] [id number] [address] [place] [address], [place] [address] Jun, [facility] [address] [id number] [address] [place] [address], [place] [address] Jun, [facility] [address] [id number] [address] [place] [address], [place] [address] Jun, [facility] [address] [id number] [address] [place] [address], [place] [address] Jun, [facility] [address] [id number] [address] [place] [address], [place] [address] May, [facility] [address] [id number] [address] [place] [address], [place] [address] May, [facility] [address] [id number] [address] [place] [address], [place] [address] May, [facility] [address] [id number] [address] [place] [address], [place] [address] May, [facility] [address] [id number] [address] [place] [address], [place] [address] May, [facility] [address] [id number] [address] [place] [address], [place] [address] May, [facility] [address] [id number] [address] [place] [address], [place] [address] May, [facility] [address] [id number] [address] [place] [address], [place] [address] Apr, [facility] [address] [id number] [address] [place] [address], [place] [address] Apr, [facility] [address] [id number] [address] [place] [address], [place] [address] Apr, [facility] [address] [id number] [address] [place] [address], [place] [address] Apr, [facility] [address] [id number] [address] [place] [address], [place] [address] Apr, [facility] [address] [id number] [address] [place] [address], [place] [address] Apr, [facility] [address] [id number] [address] [place] [address], [place] [address] Mar, [facility] [address] [id number] [address] [place] [address], [place] [address] Mar, [facility] [address] [id number] [address] [place] [address], [place] [address] Mar, [facility] [address] [id number] [address] [place] [address], [place] [address] Mar, [facility] [address] [id number] [address] [place] [address], [place] [address] Mar, [facility] [address] [id number] [address] [place] [address], [place] [address] Mar, [facility] [address] [id number] [address] [place] [address], [place] [address] Jan, [facility] [address] [id number] [address] [place] [address], [place] [address] Jan, [facility] [address] [id number] [address] [place] [address], [place] [address] Jan, [facility] [address] [id number] [address] [place] [address], [place] [address] Jan, [facility] [address] [id number] [address] [place] [address], [place] [address] Dec, [facility] [address] [id number] [address] [place] [address], [place] [address] Dec, [facility] [address] [id number] [address] [place] [address], [place] [address] Dec, [facility] [address] [id number] [address] [place] [address], [place] [address] Dec, [facility] [address] [id number] [address] [place] [address], [place] [address] Dec, [facility] [address] [id number] [address] [place] [address], [place] [address] Dec, [facility] [address] [id number] [address] [place] [address], [place] [address] Dec, [facility] [address] [id number] [address] [place] [address], [place] [address] Dec, [facility] [address] [id number] [address] [place] [address], [place] [address] Dec, [facility] [address] [id number] [address] [place] [address], [place] [address] Dec, [facility] [address] [id number] [address] [place] [address], [place] [address] Dec, [facility] [address] [id number] [address] [place] [address], [place] [address] Dec, [facility] [address] [id number] [address] [place] [address], [place] [address] October, [facility] [address] [id number] [address] [place] [address], [place] [address] October, [facility] [address] [id number] [address] [place] [address], [place] [address] October, [facility] [address] [id number] [address] [place] [address], [place] [address] October, [facility] [address] [id number] [address] [place] [address], [place] [address] October, [facility] [address] [id number] [address] [place] [address], [place] [address] October, [facility] [address] [id number] [address] [place] [address], [place] [address] Oct, [facility] [address] [id number] [address] [place] [address], [place] [address] Oct, [facility] [address] [id number] [facility] [place] [address] Oct, [facility] [address] [id number] [address] [place] [address], [place] [address] Oct, [facility] [address] [id number] [address] [place] [address], [place] [address] Oct, [facility] [address] [id number] [address] [place] [address], [place] [address] Oct, [facility] [address] [id number] [address] [place] [address], [place] [address] Oct, [facility] [address] [id number] [address] [place] [address], [place] [address] Oct, [facility] [address] [id number] [address] [place] [address], [place] [address] Oct, [facility] [address] [id number] [address] [place] [address], [place] [address] Oct, [facility] [address] [id number] [address] [place] [address], [place] [address] Oct, [facility] [address] [id number] [address] [place] [address], [place] [address] Oct, [facility] [address] [id number] [address] [place] [address], [place] [address] 15 Aug, 2013 [facility] [address] [id number] [address] [place] [address], [place] [address] Aug, [facility] [address] [id number] [address] [place] [address], [place] [address] Aug, [facility] [address] [id number] [address] [place] [address], [place] [address] Aug, [facility] [address] [id number] [address] [place] [address], [place] [address] 05 Aug, 2013 [facility] [address] [id number] [facility] [place] [address] 05 Aug, 2013 [facility] [address] [id number] [address] [place] [address], [place] [address] 04 Aug, 2013 [facility] [address] [id number] [facility] [place] [address] Aug, [facility] [address] [id number] [address] [place] [address], [place] [address] Aug, [facility] [address] [id number] [address] [place] [address], [place] [address] 24 Aug, 2013 [facility] [address] [id number] [address] [place] [address], [place] [address] 24 Aug, 2013 [facility] [address] [id number] [address] [place] [address], [place] [address] Aug, [facility] [address] [id number] [address] [place] [address], [place] [address] Aug, [facility] [address] [id number] [address] [place] [address], [place] [address] 20 Aug, 2013 [facility] [address] [id number] [address] [place] [address], [place] [address] 14 Aug, 2013 [facility] [address] [id number] [address] [place] [address], [place] [address] 14 Aug, 2013 [facility] [address] [id number] [address] [place] [address], [place] [address] 14 Aug, 2013 [facility] [address] [id number] [address] [place] [address], [place] [address] 14 Aug, 2013 [facility] [address] [id number] [address] [place] [address], [place] [address] 07 Aug, 2013 [facility] [address] [id number] [address] [place] [address], [place] [address] 07 Aug, 2013 [facility] [address] [id number] [address] [place] [address], [place] [address] 06 Aug, 2013 [facility] [address] [id number] [address] [place] [address], [place] [address] Aug, [facility] [address] [id number] [address] [place] [address], [place] [address] Aug, [facility] [address] [id number] [address] [place] [address], [place] [address] Aug, [facility] [address] [id number] [address] [place] [address], [place] [address] Aug, [facility] [address] [id number] [address] [place] [address], [place] [address] Jul, [facility] [address] [id number] [address] [place] [address], [place] [address] Jul, [facility] [address] [id number] [address] [place] [address], [place] [address] Jul, [facility] [address] [id number] [address] [place] [address], [place] [address] Jul, [facility] [address] [id number] [address] [place] [address], [place] [address] Jul, [facility] [address] [id number] [address] [place] [address], [place] [address] Jul, [facility] [address] [id number] [address] [place] [address], [place] [address] Jul, [facility] [address] [id number] [address] [place] [address], [place] [address] Jul, [facility] [address] [id number] [address] [place] [address], [place] [address] Jul, [facility] [address] [id number] [address] [place] [address], [place] [address] Jul, [facility] [address] [id number] [address] [place] [address], [place] [address] Jul, [facility] [address] [id number] [address] [place] [address], [place] [address] Jul, [facility] [address] [id number] [address] [place] [address], [place] [address] Jul, [facility] [address] [id number] [address] [place] [address], [place] [address] Jul, [facility] [address] [id number] [address] [place] [address], [place] [address] Jul, [facility] [address] [id number] [address] [place] [address], [place] [address] Jul, [facility] [address] [id number] [address] [place] [address], [place] [address] Jul, [facility] [address] [id number] [address] [place] [address], [place] [address] Jul, [facility] [address] [id number] [address] [place] [address], [place] [address] Jul, [facility] [address] [id number] [address] [place] [address], [place] [address] Jul, [facility] [address] [id number] [address] [place] [address], [place] [address] Jun, [facility] [address] [id number] [address] [place] [address], [place] [address] Jun, [facility] [address] [id number] [address] [place] [address], [place] [address] 30 Jun, 2013 [facility] [address] [id number] [address] [place] [address], [place] [address] 30 Jun, 2013 [facility] [address] [id number] [address] [place] [address], [place] [address] Jun, [facility] [address] [id number] [address] [place] [address], [place] [address] Jun, [facility] [address] [id number] [address] [place] [address] Jun, [facility] [address] [id number] [address] [place] [address], [place] [address] Jun, [facility] [address] [id number] [address] [place] [address], [place] [address] Jun, [facility] [address] [id number] [address] [place] [address], [place] [address] Jun, [facility] [address] [id number] [address] [place] [address], [place] [address] Jun, [facility] [address] [id number] [address] [place] [address], [place] [address] Jun, [facility] [address] [id number] [address] [place] [address], [place] [address] Jun, [facility] [address] [id number] [address] [place] [address], [place] [address] Jun, [facility] [address] [id number] [address] [place] [address], [place] [address] Jun, [facility] [address] [id number] [address] [place] [address], [place] [address] 18 Jun, 2013 [facility] [address] [id number] [address] [place] [address], [place] [address] 18 Jun, 2013 [facility] [address] [id number] [address] [place] [address], [place] [address] 17 Jun, 2013 [facility] [address] [id number] [address] [place] [address], [place] [address] 17 Jun, 2013 [facility] [address] [id number] [address] [place] [address], [place] [address] 13 Jun, 2013 [facility] [address] [id number] [address] [place] [address], [place] [address] 12 Jun, 2013 [facility] [address] [id number] [address] [place] [address], [place] [address] 12 Jun, 2013 [facility] [address] [id number] [address] [place] [address], [place] [address] Jun, [facility] [address] [id number] [address] [place] [address], [place] [address] Jun, [facility] [address] [id number] [address] [place] [address], [place] [address] Jun, [facility] [address] [id number] [address] [place] [address], [place] [address] Jun, [facility] [address] [id number] [address] [place] [address], [place] [address] Jun, [facility] [address] [id number] [address] [place] [address], [place] [address] May, [facility] [address] [id number] [address] [place] [address], [place] [address] May, [facility] [address] [id number] [address] [place] [address], [place] [address] May, [facility] [address] [id number] [address] [place] [address], [place] [address] May, [facility] [address] [id number] [address] [place] [address], [place] [address] May, [facility] [address] [id number] [address] [place] [address], [place] [address] May, [facility] [address] [id number] [address] [place] [address], [place] [address] Apr, [facility] [address] [id number] [address] [place] [address], [place] [address] Apr, [facility] [address] [id number] [address] [place] [address], [place] [address] Apr, [facility] [address] [id number] [address] [place] [address], [place] [address] Apr, [facility] [address] [id number] [address] [place] [address] [address] Apr, [facility] [address] [id number] [address] [place] [address], [place] [address] 15 Apr, 2013 [facility] [address] [id number] [address] [place] [address], [place] [address] 15 Apr, 2013 [facility] [address] [id number] [address] [place] [address], [place] [address] Apr, [facility] [address] [id number] [address] [place] [address], [place] [address] 26 Mar, 2012 [facility] [address] [id number] [address] [place] [address], [place] [address] 24 Mar, 2013 [facility] [address] [id number] [address] [place] [address], [place] [address] 17 Mar, 2013 [facility] [address] [id number] [address] [place] [address], [place] [address] 17 Mar, 2013 [facility] [address] [id number] [address] [place] [address], [place] [address] 11 Mar, 2013 [facility] [address] [id number] [address] [place] [address], [place] [address] 10 Mar, 2013 [facility] [address] [id number] [address] [place] [address], [place] [address] 05 Mar, 2013 [facility] [address] [id number] [address] [place] [address], [place] [address] 04 Mar, 2013 [facility] [address] [id number] [address] [place] [address], [place] [address] 20 Jan, 2013 [facility] [address] [id number] [address] [place] [address], [place] [address] 19 Jan, 2013 [facility] [address] [id number] [address] [place] [address], [place] [address] 14 Jan, 2013 [facility] [address] [id number] [address] [place] [address], [place] [address] 12 Jan, 2013 [facility] [address] [id number] [address] [place] [address], [place] [address] Jan, [facility] [address] [id number] [address] [place] [address], [place] [address] 05 Jan, 2013 [facility] [address] [id number] [address] [place] [address], [place] [address] 31 Dec, 2012 [facility] [address] [id number] [address] [place] [address], [place] [address] 24 Dec, 2012 [facility] [address] [id number] [address] [place] [address], [place] [address] Dec, [facility] [address] [id number] [address] [place] [address], [place] [address] Dec, [facility] [address] [id number] [address] [place] [address], [place] [address] Dec, [facility] [address] [id number] [address] [place] [address], [place] [address] 17 Dec, 2012 [facility] [address] [id number] [address] [place] [address], [place] [address] 16 Dec, 2012 [facility] [address] [id number] [address] [place] [address], [place] [address] 16 Dec, 2012 [facility] [address] [id number] [address] [place] [address], [place] [address] 15 Dec, 2012 [facility] [address] [id number] [address] [place] [address], [place] [address] Dec, [facility] [address] [id number] [address] [place] [address], [place] [address] Dec, [facility] [address] [id number] [address] [place] [address], [place] [address] Dec, [facility] [address] [id number] [address] [place] [address], [place] [address] Dec, [facility] [address] [id number] [address] [place] [address], [place] [address] 17 Dec, 2012 [facility] [address] [id number] [address] [place] [address], [place] [address] Dec, [facility] [address] [id number] [address] [place] [address], [place] [address] Dec, [facility] [address] [id number] [address] [place] [address], [place] [address] October, [facility] [address] [id number] [address] [place] [address], [place] [address] October, [facility] [address] [id number] [address] [place] [address], [place] [address] October, [facility] [address] [id number] [address] [place] [address], [place] [address] October, [facility] [address] [id number] [address] [place] [address], [place] [address] October, [facility] [address] [id number] [address] [place] [address], [place] [address] October, [facility] [address] [id number] [address] [place] [address], [place] [address] October, [facility] [address] [id number] [address] [place] [address], [place] [address] Oct, [facility] [address] [id number] [address] [place] [address], [place] [address] Oct, [facility] [address] [id number] [address] [place] [address], [place] [address] Oct, [facility] [address] [id number] [address] [place] [address], [place] [address] Oct, [facility] [address] [id number] [address] [place] [address], [place] [address] Oct, [facility] [address] [id number] [address] [place] [address], [place] [address] 18 Oct, 2012 [facility] [address] [id number] [address] [place] [address], [place] [address] 17 Oct, 2012 [facility] [address] [id number] [address] [place] [address], [place] [address] 15 Oct, 2012 [facility] [address] [id number] [address] [place] [address], [place] [address] Oct, [facility] [address] [id number] [address] [place] [address], [place] [address] Oct, [facility] [address] [id number] [address] [place] [address], [place] [address] Oct, [facility] [address] [id number] [address] [place] [address], [place] [address] Oct, [facility] [address] [id number] [address] [place] [address], [place] [address] Aug, [facility] [address] [id number] [address] [place] [address], [place] [address] Aug, [facility] [address] [id number] [address] [place] [address], [place] [address] Aug, [facility] [address] [id number] [address] [place] [address], [place] [address] Aug, [facility] [address] [id number] [address] [place] [address], [place] [address] Aug, [facility] [address] [id number] [address] [place] [address], [place] [address] Aug, [facility] [address] [id number] [address] [place] [address], [place] [address] 20 Aug, 2012 [facility] [address] [id number] [address] [place] [address], [place] [address] 14 Aug, 2012 [facility] [address] [id number] [address] [place] [address], [place] [address] 12 Aug, 2012 [facility] [address] [id number] [address] [place] [address], [place] [address] Aug, [facility] [address] [id number] [address] [place] [address], [place] [address] 29 Jul, 2012 [facility] [address] [id number] [address] [place] [address], [place] [address] 15 Jul, 2012 [facility] [address] [id number] [address] [place] [address], [place] [address] 08 Jul, 2012 [facility] [address] [id number] [address] [place] [address], [place] [address] 20 Jun, 2012 [facility] [address] [id number] [address] [place] [address], [place] [address] 18 Jun, 2012 [facility] [address] [id number] [address] [place] [address], [place] [address] 18 Jun, 2012 [facility] [address] [id number] [address] [place] [address], [place] [address] 18 Jun, 2012 [facility] [address] [id number] [address] [place] [address], [place] [address] 18 Jun, 2012 [facility] [address] [id number] [address] [place] [address], [place] [address] 14 Jun, 2012 [facility] [address] [id number] [address] [place] [address], [place] [address] 14 Jun, 2012 [facility] [address] [id number] [address] [place] [address], [place] [address] 13 Jun, 2012 [facility] [address] [id number] [address] [place] [address], [place] [address] 13 Jun, 2012 [facility] [address] [id number] [address] [place] [address], [place] [address] 11 Jun, 2012 [facility] [address] [id number] [address] [place] [address], [place] [address] 11 Jun, 2012 [facility] [address] [id number] [address] [place] [address], [place] [address] 11 Jun, 2012 [facility] [address] [id number] [address] [place] [address] [address] Jun, [facility] [address] [id number] [address] [place] [address], [place] [address] Jun, [facility] [address] [id number] [address] [place] [address], [place] [address] Jun, [facility] [address] [id number] [address] [place] [address], [place] [address] Jun, [facility] [address] [id number] [address] [place] [address], [place] [address] Jun, [facility] [address] [id number] [address] [place] [address], [place] [address] Jun, [facility] [address] [id number] [address] [place] [address], [place] [address] Jun, [facility] [address] [id number] [address] [place] [address], [place] [address] Jun, [facility] [address] [id number] [address] [place] [address], [place] [address] Jun, [facility] [address] [id number] [address] [place] [address], [place] [address] Jun, [facility] [address] [id number] [address] [place] [address], [place] [address] Jun, [facility] [address] [id number] [address] [place] [address], [place] [address] May, [facility] [address] [id number] [address] [place] [address], [place] [address] May, [facility] [address] [id number] [address] [place] [address], [place] [address] May, [facility] [address] [id number] [address] [place] [address], [place] [address] May, [facility] [address] [id number] [address] [place] [address], [place] [address] May, [facility] [address] [id number] [address] [place] [address], [place] [address] 08 May, 2012 [facility] [address] [id number] [address] [place] [address], [place] [address] May, [facility] [address] [id number] [address] [place] [address], [place] [address] May, [facility] [address] [id number] [address] [place] [address], [place] [address] 30 Apr, 2012 [facility] [address] [id number] [address] [place] [address], [place] [address] 30 Apr, 2012 [facility] [address] [id number] [address] [place] [address], [place] [address] 29 Apr, 2012 [facility] [address] [id number] [address] [place] [address], [place] [address] Apr, [facility] [address] [id number] [address] [place] [address], [place] [address] Apr, [facility] [address] [id number] [address] [place] [address], [place] [address] Apr, [facility] [address] [id number] [address] [place] [address], [place] [address] Apr, [facility] [address] [id number] [address] [place] [address] Apr, [facility] [address] [id number] [address] [place] [address], [place] [address] Apr, [facility] [address] [id number] [address] [place] [id number] Apr, [facility] [address] [id number] [address] [place] [address] Apr, [facility] [address] [id number] [address] [place] [address] Apr, [facility] [address] [id number] [address] [place] [id number] Mar, [facility] [address] [id number] [address] [place] [address], [place] [address] 18 Mar, 2012 [facility] [address] [id number] [address] [place] [address], [place] [address] Mar, [facility] [address] [id number] [address] [place] [address], [place] [address] Mar, [facility] [address] [id number] [address] [place] [address], [place] [id number] Mar, [facility] [address] [id number] [address] [place] [address], [place] [id number] Mar, [facility] [address] [id number] [address] [place] [address], [place] [address] Mar, [facility] [address] [id number] [address] [place] [address], [place] [address] Jan, [facility] [address] [id number] [address] [place] [address], [place] [address] Jan, [facility] [address] [id number] [address] [place] [id number] Jan, [facility] [address] [id number] [address] [place] [id number] Jan, [facility] [address] [id number] [address] [place] [address], [place] [address] Jan, [facility] [address] [id number] [address] [place] [address], [place] [address] Jan, [facility] [address] [id number] [address] [place] [id number] Jan, [facility] [address] [id number] [address] [place] [address], [place] [address] Jan, [facility] [address] [id number] [address] [place] [address], [place] [address] Jan, [facility] [address] [id number] [address] [place] [address], [place] [address] Jan, [facility] [address] [id number] [address] [place] [address], [place] [address] Jan, [facility] [address] [id number] [address] [place] [address], [place] [address] Dec, [facility] [address] [id number] [address] [place] [address], [place] [address] Dec, [facility] [address] [id number] [address] [place] [address], [place] [address] Dec, [facility] [address] [id number] [address] [place] [address], [place] [address] Dec, [facility] [address] [id number] [address] [place] [address], [place] [address] Dec, [facility] [address] [id number] [address] [place] [address], [place] [address] Dec, [facility] [address] [id number] [address] [place] [address], [place] [address] Dec, [facility] [address] [id number] [address] [place] [address], [place] [address] Dec, [facility] [address] [id number] [address] [place] [address], [place] [address] 16 Jan, 2012 [facility] [address] [id number] [address] [place] [address], [place] [address] Dec, [facility] [address] [id number] [address] [place] [address], [place] [address] Dec, [facility] [address] [id number] [address] [place] [address], [place] [address] Dec, [facility] [address] [id number] [address] [place] [address], [place] [address] Dec, [facility] [address] [id number] [address] [place] [address], [place] [address] Dec, [facility] [address] [id number] [address] [place] [address], [place] [address] 25 Dec, 2011 [facility] [address] [id number] [address] [place] [address], [place] [address] 18 Dec, 2011 [facility] [address] [id number] [address] [place] [address], [place] [address] 15 Dec, 2011 [facility] [address] [id number] [address] [place] [address], [place] [address] 06 Dec, 2011 [facility] [address] [id number] [address] [place] [address], [place] [address] Dec, [facility] [address] [id number] [address] [place] [address], [place] [address] October, [facility] [address] [id number] [address] [place] [address], [place] [address] October, [facility] [address] [id number] [address] [place] [address], [place] [address] October, [facility] [address] [id number] [address] [place] [address], [place] [address] October, [facility] [address] [id number] [address] [place] [address], [place] [address] October, [facility] [address] [id number] [address] [place] [address], [place] [address] October, [facility] [address] [id number] [address] [place] [address], [place] [address] Oct, [facility] [address] [id number] [address] [place] [address], [place] [address] 24 Oct, 2011 [facility] [address] [id number] [address] [place] [place] [address], [place] [address] Oct, [facility] [address] [id number] [address] [place] [address], [place] [address] Oct, [facility] [address] [id number] [address] [place] [address], [place] [address] Oct, [facility] [address] [id number] [address] [place] [address], [place] [address] Oct, [facility] [address] [id number] [address] [place] [address], [place] [address] Oct, [facility] [address] [id number] [address] [place] [address], [place] [address] Aug, [facility] [address] [id number] [address] [place] [address], [place] [address] 29 Sep, 2011 [facility] [address] [id number] [address] [place] [address], [place] [address] Aug, [facility] [address] [id number] [address] [place] [address], [place] [address] Aug, [facility] [address] [id number] [address] [place] [address], [place] [address] Aug, [facility] [address] [id number] [address] [place] [address], [place] [address] Aug, [facility] [address] [id number] [address] [place] [address], [place] [address] Aug, [facility] [address] [id number] [address] [place] [address], [place] [address] Aug, [facility] [address] [id number] [address] [place] [address], [place] [address] Aug, [facility] [address] [id number] [address] [place] [address], [place] [address] Jul, [facility] [address] [id number] [address] [place] [address], [place] [address] Jul, [facility] [address] [id number] [address] [place] [address], [place] [address] Jul, [facility] [address] [id number] [address] [place] [address], [place] [address] Jul, [facility] [address] [id number] [address] [place] [id number] Jun, [facility] [address] [id number] [address] [place] [address], [place] [address] Jun, [facility] [address] [id number] [address] [place] [address], [place] [address] May, [facility] [address] [id number] [address] [place] [address], [place] [address] May, [facility] [address] [id number] [address] [place] [address], [place] [address] May, [facility] [address] [id number] [address] [place] [address], [place] [address] May, [facility] [address] [id number] [address] [place] [address], [place] [address] May, [facility] [address] [id number] [address] [place] [address], [place] [address] Apr, [facility] [address] [id number] [address] [place] [address], [place] [address] Apr, [facility] [address] [id number] [address] [place] [address], [place] [address] Apr, [facility] [address] [id number] [address] [place] [address], [place] [address] 15 Jan, 2011 [facility] [address] [id number] [address] [place] [address], [place] [address] Dec, [facility] [address] [id number] [address] [place] [address], [place] [address] October, [facility] [address] [id number] [address] [place] [address], [place] [address] Jun, [facility] [address] [id number] [address] [place] [address], [place] [address] 23 Apr, 2009 [facility] [address] [id number] [address] [place] [address], [place] [address] 13 Apr, 2009 [facility] [address] [id number] [address] [place] [id number] Apr, [facility] [address] [facility] [id number] [address] [place] [phone] Jun, IMMUNIZATIONS No Known Immunizations SOCIAL HISTORY Never Assessed REASON FOR VISIT f/u Kika PLAN OF CARE Activity Details Follow Up 3 Months Reason: f/u Pending Test LIPID PANEL Pending Test CMP VITAL SIGNS Height 69 in 2018-01-25 Weight 215.8 lbs 2018-01-25 Heart Rate 84 bpm 2018-01-25 Respiratory Rate 20 2018-01-25 BMI 31.86 kg/m2 2018-01-25 Blood pressure systolic 130 mmHg 2018-01-25 Blood pressure diastolic 74 mmHg 2018-01-25 MEDICATIONS Medication Instructions Dosage Frequency Start Date End Date Duration S tatus HydrOXYzine HCl 50 mg Orally 3 times a day 1 tablet as needed 8h Active Plus Iron 29-1 MG Orally Once a day 1 tablet 24h 24 Ap r, 2017 90 days Active Seroquel 400 MG TAKE TWO TABLETS BY MOUTH ONCE DAILY AT BEDTIME Active Valium 5 mg Orally Twice a day 1 tablet as needed 12h Active Gabapentin 800 MG Orally 4 times a day 1 tablet 6h Active Adderall 10 mg Orally 3 times a day 1 tablet 8h 25 Dec, 2017 Active Prazosin HCl 5 MG TAKE ONE CAPSULE BY MOUTH ONCE DAILY AT BEDTIM E Active RESULTS No Results PROCEDURES Procedure Date Ordered Result Body Site LAB NOT BILLED BY [facility] January 25, 2018 [facility] VISIT ESTABLISHED PATIENT January 25, 2018 INSTRUCTIONS MEDICATIONS ADMINISTERED No Known Medications MEDICAL (GENERAL) HISTORY Type Description Date Medical History Psychiatric disorder Medical History Hard of hearing Surgical History Neofibrous tumor Surgical History back injection Hospitalization History Intestinal blockage Hospitalization History past psychiatric hospitalizations x2
--- OUTSIDE RECORDS SUMMARY | 2020-01-25 13:10 | XMS REPORT ---
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 Name Role Phone FRANCINE, KWAME Unavailable PROBLEMS Type Condition ICD9-CM Code [id number] Code Onset Dates Condition S tatus SNOMED Code Problem Attention deficit R41.840 Active 76 715466 Problem Cannabis abuse F12.10 Active 39636 009 Problem Chronic hepatitis C without hepatic coma B18.2 Active 343988586 Problem Attention deficit hyperactivity disorder (ADHD), combi luciano type F90.2 Active 06738553 Problem Bipolar disorder, in partial remission, most rec ent episode hypomanic F31.71 Active 366688798 Problem H/O laminectomy Z98.89 Active 1616 03085 Problem Bipolar 1 disorder F31.9 Active 3 32763954 Problem Anxiety disorder, unspecified type F41.9 Active 069343445 Problem Other chronic pain G89.29 Active 8 [id number] ALLERGIES No Information ENCOUNTERS Encounter Location Date Diagnosis [facility] [address] [facility] [id number] [address] [place] [phone] Apr, [facility] [address] [facility] [id number] [address] [place] [phone] Mar, [facility] [address] [facility] [id number] [address] [place] [phone] Jan, Bipolar disorder, in partial remission, most recent episode hypomanic F31.71 [facility] [address] [facility] [id number] [address] [place] [phone] Jan, Bipolar disorder, in partial remission, most recent episode hypomanic F31.71 [facility] [address] 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 [facility] [address] [id number] [address] [place] [phone] Dec, Bipolar disorder, in partial remission, most recent episode hypomanic F31.71 [facility] [address] [id number] [address] [place] [phone] Dec, Bipolar disorder, in partial remission, most recent episode hypomanic F31.71 [facility] [address] [id number] [address] [place] [phone] October, Bipolar disorder, in partial remission, most recent episode hypomanic F31.71 [facility] [address] [id number] [address] [place] [phone] October, [facility] [address] [id number] [address] [place] [phone] October, [facility] [address] [id number] [address] [place] [address] Oct, Bipolar disorder, in partial remission, most recent episode hypomanic F31.71 ; Attention deficit hyperactivity disorder (ADHD), combined type F90.2 ; Anxiety disorder, unspecified type F41.9 and Encounter for drug screening Z02.83 [facility] [address] [id number] [address] [place] [id number] Oct, Bipolar disorder, in partial remission, most recent episode hypomanic F31.71 [facility] [address] [id number] [address] [place] [address] Oct, Bipolar disorder, in partial remission, most recent episode hypomanic F31.71 [facility] [address] [id number] [address] [place] [address] Aug, Bipolar disorder, in partial remission, most recent episode hypomanic F31.71 [facility] [address] [facility] [id number] [address] [place] [phone] Aug, Bipolar disorder, in partial remission, most recent episode hypomanic F31.71 [facility] [address] [facility] [id number] [address] [place] [address] Aug, Bipolar disorder, in partial remission, most recent episode hypomanic F31.71 [facility] [address] [id number] [address] [place] [address] Jul, Bipolar disorder, in partial remission, most recent episode hypomanic F31.71 ; Attention deficit hyperactivity disorder (ADHD), combined type F90.2 and Anxiety disorder, unspecified type F41.9 [facility] [address] [facility] [id number] [address] [place] [address] Jul, Bipolar disorder, in partial remission, most recent episode hypomanic F31.71 [facility] [address] [id number] [address] [place] [phone] Jun, Bipolar disorder, in partial remission, most recent episode hypomanic F31.71 [facility] [address] [facility] [id number] [address] [place] [phone] May, Bipolar disorder, in partial remission, most recent episode hypomanic F31.71 [facility] [address] [facility] [id number] [address] [place] [phone] May, Bipolar disorder, in partial remission, most recent episode hypomanic F31.71 [facility] [address] [facility] [id number] [address] [place] [address] Apr, [facility] [address] [facility] [id number] [address] [place] [phone] Apr, Bipolar disorder, in partial remission, most recent episode hypomanic F31.71 ; Attention deficit hyperactivity disorder (ADHD), combined type F90.2 ; Anxiety disorder, unspecified type F41.9 and Cannabis abuse F12.10 [facility] [address] [facility] [id number] [address] [place] [phone] 13 Apr, 2017 Attention deficit hyperactiv ity disorder (ADHD), combined type F90.2 [facility] [address] [facility] [id number] [address] [place] [phone] Mar, Attention deficit hyperactiv ity disorder (ADHD), combined type F90.2 [facility] [address] [facility] [id number] [address] [place] [phone] 14 Mar, 2017 Anxiety disorder, unspecifie d type F41.9 [facility] [address] [facility] [id number] [address] [place] [phone] Jan, Attention deficit hyperactiv ity disorder (ADHD), combined type F90.2 [facility] [address] [facility] [id number] [address] [place] [address] Jan, Anxiety disorder, unspecifie d type F41.9 [facility] [address] [facility] [id number] [address] [place] [phone] Jan, Other chronic pain G89.29 ; Chronic hepatitis C without hepatic coma B18.2 and Bipolar 1 disorder F31.9 [facility] [address] [facility] [id number] [address] [place] [phone] Dec, Attention deficit hyperactiv ity disorder (ADHD), combined type F90.2 [facility] [address] [facility] [id number] [address] [place] [phone] Dec, Bipolar disorder, in partial remission, most recent episode hypomanic F31.71 ; Attention deficit hyperactivity disorder (ADHD), combined type F90.2 and Anxiety disorder, unspecified type F41.9 [facility] [address] [facility] [id number] [address] [place] [address] Dec, Bipolar disorder, in partial remission, most recent episode hypomanic F31.71 ; Attention deficit hyperactivity disorder (ADHD), combined type F90.2 and Anxiety disorder, unspecified type F41.9 [facility] [address] [place] [id number] [address] [place] [address] Dec, Bipolar 1 disorder F31.9 and Attention deficit R41.840 [facility] [address] [id number] [address] [place] [phone] Oct, Other chronic pain G89.29 ; Alopecia L65.9 and Screening, lipid Z13.220 [facility] [address] [id number] [address] [place] [phone] Oct, [facility] [address] [id number] [address] [place] [phone] Aug, [facility] [address] [facility] [id number] [address] [place] [phone] Aug, Eustachian tube dysfunction, right H69.81 ; Vertigo R42 and Other chronic pain G89.29 [facility] [address] [facility] [id number] [address] [place] [phone] Aug, [facility] [address] [id number] [address] [place] [phone] Jun, [facility] [address] [facility] [id number] [address] [place] [phone] Jun, Low back pain M54.5 and Othe r chronic pain G89.29 [facility] [address] [id number] [address] [place] [phone] Jun, [facility] [address] [id number] [address] [place] [phone] May, [facility] [address] [id number] [address] [place] [phone] Jan, [facility] [address] [facility] [id number] [address] [place] [phone] Dec, [facility] [address] [facility] [id number] [address] [place] [phone] Dec, [facility] [address] [facility] [id number] [address] [place] [phone] Jun, [facility] [address] [facility] [id number] [address] [place] [phone] Apr, Eustachian tube dysfunction, unspecified laterality H69.80 ; Hot flashes N95.1 and Encounter for immunization Z23 [facility] [address] [facility] [id number] [address] [place] [phone] Jan, [facility] [address] [place] [id number] [address] [place] [phone] Jan, [facility] [address] [place] [id number] [address] [place] [phone] Jan, [facility] [address] [place] [id number] [place] [address] Jan, [facility] [address] [id number] Jan, Encounter to establish care V65.8 ; Bipolar 1 disorder 296.7 ; Abdominal pain 789.00 ; Constipation 564.00 ; Hard of hearing 389.9 and Drug abuse 305.90 [facility] [address] [place] [id number] [place] [address] Dec, [facility] [address] [place] [id number] [address] [place] [phone] October, [facility] [address] [place] [id number] [address] [place] [phone] October, [facility] [address] [facility] [id number] [address] [place] [phone] Oct, [facility] [address] [place] [id number] [place] [phone] Oct, [facility] [address] [place] [id number] [address] [place] [phone] Oct, [facility] [address] [place] [id number] [address] [place] [phone] Aug, [facility] [address] [id number] [address] [place] [address], [place] [address] Aug, [facility] [address] [id number] [address] [place] [address], [place] [address] Aug, [facility] [address] [id number] [address] [place] [address], [place] [address] Aug, 2014 [facility] [address] [id number] [address] [place] [address], [place] [address] Aug, 2014 [facility] [address] [id number] [address] [place] [address], [place] [address] Aug, 2014 [facility] [address] [id number] [address] [place] [address], [place] [address] Aug, 2014 [facility] [address] [id number] [address] [place] [address], [place] [address] Aug, 2014 [facility] [address] [id number] [address] [place] [address], [place] [address] Aug, 2014 [facility] [address] [id number] [address] [place] [address], [place] [address] Aug, 2014 [facility] [address] [id number] [address] [place] [address], [place] [address] Aug, 2014 [facility] [address] [id number] [address] [place] [address], [place] [address] Aug, 2014 [facility] [address] [id number] [address] [place] [address], [place] [address] Aug, 2014 [facility] [address] [id number] [address] [place] [address], [place] [address] Aug, 2014 [facility] [address] [id number] [address] [place] [address], [place] [address] Aug, 2014 [facility] [address] [id number] [address] [place] [address], [place] [address] Jul, [facility] [address] [id number] [address] [place] [address], [place] [address] Jul, [facility] [address] [id number] [address] [place] [address], [place] [address] Jul, [facility] [address] [id number] [address] [place] [address], [place] [address] Jul, [facility] [address] [id number] [address] [place] [address], [place] [address] Jul, [facility] [address] [id number] [address] [place] [address], [place] [address] Jul, [facility] [address] [id number] [address] [place] [address], [place] [address] Jul, [facility] [address] [id number] [address] [place] [address], [place] [address] Jul, [facility] [address] [id number] [address] [place] [address], [place] [address] Jun, [facility] [address] [id number] [address] [place] [address], [place] [address] Jun, [facility] [address] [id number] [address] [place] [address], [place] [address] Jun, [facility] [address] [id number] [address] [place] [address], [place] [address] 29 Jun, 2014 [facility] [address] [id number] [address] [place] [address], [place] [address] 18 Jun, 2014 [facility] [address] [id number] [address] [place] [address], [place] [address] 15 Jun, 2014 [facility] [address] [id number] [address] [place] [address], [place] [address] 15 Jun, 2014 [facility] [address] [id number] [address] [place] [address], [place] [address] Jun, [facility] [address] [id number] [address] [place] [address] [address] Jun, [facility] [address] [id number] [address] [place] [address], [place] [address] Jun, [facility] [address] [id number] [address] [place] [address], [place] [address] Jun, [facility] [address] [id number] [address] [place] [address], [place] [address] May, [facility] [address] [id number] [address] [place] [address], [place] [address] May, [facility] [address] [id number] [address] [place] [address], [place] [address] May, [facility] [address] [id number] [address] [place] [address], [place] [address] May, [facility] [address] [id number] [address] [place] [address], [place] [address] May, [facility] [address] [id number] [address] [place] [address], [place] [address] May, [facility] [address] [id number] [address] [place] [address], [place] [address] May, [facility] [address] [id number] [address] [place] [address], [place] [address] Apr, [facility] [address] [id number] [address] [place] [address], [place] [address] Apr, [facility] [address] [id number] [address] [place] [address] Apr, [facility] [address] [id number] [address] [place] [address], [place] [address] Apr, [facility] [address] [id number] [address] [place] [address], [place] [address] Apr, [facility] [address] [id number] [address] [place] [address], [place] [address] Apr, [facility] [address] [id number] [facility] [address] 29 Mar, 2013 [facility] [address] [id number] [address] [place] [address], [place] [address] 29 Mar, 2013 [facility] [address] [id number] [address] [place] [address], [place] [address] Mar, [facility] [address] [id number] [address] [place] [address], [place] [address] Mar, [facility] [address] [id number] [address] [place] [address], [place] [address] Mar, [facility] [address] [id number] [address] [place] [address], [place] [address] Mar, [facility] [address] [id number] [address] [place] [address], [place] [address] Jan, [facility] [address] [id number] [address] [place] [address], [place] [address] Jan, [facility] [address] [id number] [address] [place] [address], [place] [address] Jan, [facility] [address] [id number] [address] [place] [address], [place] [address] Jan, [facility] [address] [id number] [address] [place] [address], [place] [address] Dec, [facility] [address] [id number] [address] [place] [address], [place] [address] Dec, [facility] [address] [id number] [address] [place] [address], [place] [address] Dec, [facility] [address] [id number] [address] [place] [address], [place] [address] Dec, [facility] [address] [id number] [address] [place] [address], [place] [address] Dec, [facility] [address] [id number] [address] [place] [address], [place] [address] Dec, [facility] [address] [id number] [address] [place] [address], [place] [address] Dec, [facility] [address] [id number] [address] [place] [address], [place] [address] Dec, [facility] [address] [id number] [address] [place] [address], [place] [address] Dec, [facility] [address] [id number] [address] [place] [address], [place] [address] Dec, [facility] [address] [id number] [address] [place] [address], [place] [address] Dec, [facility] [address] [id number] [address] [place] [address], [place] [address] Dec, [facility] [address] [id number] [address] [place] [address], [place] [address] October, [facility] [address] [id number] [address] [place] [address], [place] [address] October, [facility] [address] [id number] [address] [place] [address], [place] [address] October, [facility] [address] [id number] [address] [place] [address], [place] [address] October, [facility] [address] [id number] [address] [place] [address], [place] [address] October, [facility] [address] [id number] [address] [place] [address], [place] [address] October, [facility] [address] [id number] [address] [place] [address], [place] [address] Oct, [facility] [address] [id number] [address] [place] [address], [place] [address] Oct, [facility] [address] [id number] [address] [place] [address], [place] [address] Oct, [facility] [address] [id number] [address] [place] [address], [place] [address] Oct, [facility] [address] [id number] [facility] [address] Oct, [facility] [address] [id number] [address] [place] [address], [place] [address] Oct, [facility] [address] [id number] [address] [place] [address], [place] [address] Oct, [facility] [address] [id number] [address] [place] [address], [place] [address] Oct, [facility] [address] [id number] [address] [place] [address], [place] [address] Oct, [facility] [address] [id number] [address] [place] [address], [place] [address] Oct, [facility] [address] [id number] [address] [place] [address], [place] [address] Oct, [facility] [address] [id number] [address] [place] [address], [place] [address] Oct, [facility] [address] [id number] [address] [place] [address], [place] [address] Aug, [facility] [address] [id number] [address] [place] [address], [place] [address] Aug, [facility] [address] [id number] [address] [place] [address], [place] [address] Aug, [facility] [address] [id number] [address] [place] [address], [place] [address] Aug, [facility] [address] [id number] [address] [place] [address], [place] [address] 05 Aug, 2013 [facility] [address] [id number] [address] [place] [address], [place] [address] 05 Aug, 2013 [facility] [address] [id number] [address] [place] [address], [place] [address] Aug, [facility] [address] [id number] [address] [place] [address], [place] [address] Aug, [facility] [address] [id number] [address] [place] [address], [place] [address] Aug, [facility] [address] [id number] [address] [place] [address], [place] [address] Aug, [facility] [address] [id number] [address] [place] [address], [place] [address] Aug, [facility] [address] [id number] [address] [place] [address], [place] [address] Aug, [facility] [address] [id number] [address] [place] [address], [place] [address] Aug, [facility] [address] [id number] [address] [place] [address], [place] [address] Aug, [facility] [address] [id number] [address] [place] [address], [place] [address] 14 Aug, 2013 [facility] [address] [id number] [address] [place] [address], [place] [address] Aug, [facility] [address] [id number] [address] [place] [address], [place] [address] Aug, [facility] [address] [id number] [address] [place] [address], [place] [address] Aug, [facility] [address] [id number] [address] [place] [address], [place] [address] Aug, [facility] [facility] [address] [id number] [address] [place] [address], [place] [address] Aug, [facility] [address] [id number] [address] [place] [address], [place] [address] Aug, [facility] [address] [id number] [address] [place] [address], [place] [address] Aug, [facility] [address] [id number] [address] [place] [address], [place] [address] 04 Aug, 2013 [facility] [address] [id number] [address] [place] [address], [place] [address] Aug, [facility] [address] [id number] [address] [place] [address], [place] [address] Aug, [facility] [address] [id number] [address] [place] [address], [place] [address] Jul, [facility] [address] [id number] [address] [place] [address], [place] [address] Jul, [facility] [address] [id number] [address] [place] [address], [place] [address] Jul, [facility] [address] [id number] [address] [place] [address], [place] [address] Jul, [facility] [address] [id number] [address] [place] [address], [place] [address] Jul, [facility] [address] [id number] [address] [place] [address], [place] [address] Jul, [facility] [address] [id number] [address] [place] [address], [place] [address] Jul, [facility] [address] [id number] [address] [place] [address], [place] [address] Jul, [facility] [address] [id number] [address] [place] [address], [place] [address] Jul, [facility] [address] [id number] [address] [place] [address], [place] [address] Jul, [facility] [address] [id number] [address] [place] [address], [place] [address] Jul, [facility] [address] [id number] [address] [place] [address], [place] [address] Jul, [facility] [address] [id number] [address] [place] [address], [place] [address] Jul, [facility] [address] [id number] [address] [place] [address], [place] [address] Jul, [facility] [address] [id number] [address] [place] [address], [place] [address] Jul, [facility] [address] [id number] [address] [place] [address], [place] [address] Jul, [facility] [address] [id number] [address] [place] [address], [place] [address] Jul, [facility] [address] [id number] [address] [place] [address], [place] [address] Jul, [facility] [address] [id number] [address] [place] [address], [place] [address] Jul, [facility] [address] [id number] [address] [place] [address], [place] [address] Jul, [facility] [address] [id number] [address] [place] [address], [place] [address] Jun, [facility] [address] [id number] [address] [place] [address], [place] [address] Jun, [facility] [address] [id number] [address] [place] [address], [place] [address] Jun, [facility] [address] [id number] [address] [place] [address], [place] [address] Jun, [facility] [address] [id number] [address] [place] [address], [place] [address] Jun, [facility] [address] [id number] [address] [place] [address], [place] [address] Jun, [facility] [address] [id number] [address] [place] [address], [place] [address] Jun, [facility] [address] [id number] [address] [place] [address], [place] [address] Jun, [facility] [address] [id number] [address] [place] [address], [place] [address] Jun, [facility] [address] [id number] [address] [place] [address], [place] [address] Jun, [facility] [address] [id number] [address] [place] [address], [place] [address] Jun, [facility] [address] [id number] [address] [place] [address], [place] [address] Jun, [facility] [address] [id number] [address] [place] [address], [place] [address] Jun, [facility] [address] [id number] [address] [place] [address], [place] [address] Jun, [facility] [address] [id number] [address] [place] [address], [place] [address] Jun, [facility] [address] [id number] [address] [place] [address], [place] [address] 18 Jun, 2013 [facility] [address] [id number] [address] [place] [address], [place] [address] 18 Jun, 2013 [facility] [address] [id number] [address] [place] [address], [place] [address] 17 Jun, 2013 [facility] [address] [id number] [address] [place] [address], [place] [address] 17 Jun, 2013 [facility] [address] [id number] [address] [place] [address], [place] [address] 13 Jun, 2013 [facility] [address] [id number] [address] [place] [address], [place] [address] 12 Jun, 2013 [facility] [address] [id number] [address] [place] [address], [place] [address] 12 Jun, 2013 [facility] [address] [id number] [address] [place] [address], [place] [address] 09 Jun, 2013 [facility] [address] [id number] [address] [place] [address], [place] [address] 05 Jun, 2013 [facility] [address] [id number] [address] [place] [address], [place] [address] 05 Jun, 2013 [facility] [address] [id number] [address] [place] [address], [place] [address] Jun, [facility] [address] [id number] [address] [place] [address], [place] [address] Jun, [facility] [address] [id number] [address] [place] [address], [place] [address] May, [facility] [address] [id number] [address] [place] [address], [place] [address] May, [facility] [address] [id number] [address] [place] [address], [place] [address] May, [facility] [address] [id number] [address] [place] [address], [place] [address] May, [facility] [address] [id number] [address] [place] [address], [place] [address] May, [facility] [address] [id number] [address] [place] [address], [place] [address] May, [facility] [address] [id number] [address] [place] [address], [place] [address] Apr, [facility] [address] [id number] [address] [place] [address], [place] [address] Apr, [facility] [address] [id number] [address] [place] [address], [place] [address] 30 Apr, 2013 [facility] [address] [id number] [address] [place] [address], [place] [address] 30 Apr, 2013 [facility] [address] [id number] [address] [place] [address], [place] [address] Apr, [facility] [address] [id number] [address] [place] [address], [place] [address] 15 Apr, 2013 [facility] [address] [id number] [address] [place] [address], [place] [address] Apr, [facility] [address] [id number] [address] [place] [address], [place] [address] Apr, [facility] [address] [id number] [address] [place] [address], [place] [address] 26 Mar, 2012 [facility] [address] [id number] [address] [place] [address], [place] [address] 24 Mar, 2012 [facility] [address] [id number] [address] [place] [address], [place] [address] 17 Mar, 2012 [facility] [address] [id number] [address] [place] [address], [place] [address] 17 Mar, 2012 [facility] [address] [id number] [address] [place] [address], [place] [address] 11 Mar, 2013 [facility] [address] [id number] [address] [place] [address], [place] [address] 10 Mar, 2013 [facility] [address] [id number] [address] [place] [address], [place] [address] 05 Mar, 2013 [facility] [address] [id number] [address] [place] [address], [place] [address] 04 Mar, 2013 [facility] [address] [id number] [address] [place] [address], [place] [address] 20 Jan, 2013 [facility] [address] [id number] [address] [place] [address], [place] [address] Jan, [facility] [address] [id number] [address] [place] [address], [place] [address] 14 Jan, 2013 [facility] [address] [id number] [address] [place] [address], [place] [address] Jan, [facility] [address] [id number] [address] [place] [address], [place] [address] Jan, [facility] [address] [id number] [address] [place] [address], [place] [address] 05 Jan, 2013 [facility] [address] [id number] [address] [place] [address] 31 Dec, 2012 [facility] [address] [id number] [facility] [address] 24 Dec, 2012 [facility] [address] [id number] [address] [place] [address], [place] [address] 22 Dec, 2012 [facility] [address] [id number] [address] [place] [address], [place] [address] 19 Dec, 2012 [facility] [address] [id number] [address] [place] [address], [place] [address] 18 Dec, 2012 [facility] [address] [id number] [address] [place] [address], [place] [address] 17 Dec, 2012 [facility] [address] [id number] [address] [place] [address], [place] [address] 16 Dec, 2012 [facility] [address] [id number] [address] [place] [address], [place] [address] 16 Dec, 2012 [facility] [address] [id number] [address] [place] [address], [place] [address] 15 Dec, 2012 [facility] [address] [id number] [address] [place] [address], [place] [address] 10 Dec, 2012 [facility] [address] [id number] [address] [place] [address], [place] [address] 28 Dec, 2012 [facility] [address] [id number] [address] [place] [address], [place] [address] 25 Dec, 2012 [facility] [address] [id number] [address] [place] [address], [place] [address] 19 Dec, 2012 [facility] [address] [id number] [address] [place] [address], [place] [address] 17 Dec, 2012 [facility] [address] [id number] [address] [place] [address], [place] [address] 13 Dec, 2012 [facility] [address] [id number] [address] [place] [address], [place] [address] 11 Dec, 2012 [facility] [address] [id number] [address] [place] [address], [place] [address] October, [facility] [address] [id number] [address] [place] [address], [place] [address] October, [facility] [address] [id number] [address] [place] [address], [place] [address] October, [facility] [address] [id number] [address] [place] [address], [place] [address] October, [facility] [address] [id number] [address] [place] [address], [place] [address] October, [facility] [address] [id number] [address] [place] [address], [place] [address] October, [facility] [address] [id number] [address] [place] [address], [place] [address] October, [facility] [address] [id number] [address] [place] [address], [place] [address] Oct, [facility] [address] [id number] [address] [place] [address], [place] [address] Oct, [facility] [address] [id number] [address] [place] [address], [place] [address] 24 Oct, 2012 [facility] [address] [id number] [address] [place] [address], [place] [address] Oct, [facility] [address] [id number] [address] [place] [address], [place] [address] Oct, [facility] [address] [id number] [address] [place] [address], [place] [address] 18 Oct, 2012 [facility] [address] [id number] [address] [place] [address], [place] [address] 17 Oct, 2012 [facility] [address] [id number] [address] [place] [address], [place] [address] 15 Oct, 2012 [facility] [address] [id number] [address] [place] [address] [address] Oct, [facility] [address] [id number] [address] [place] [address], [place] [address] Oct, [facility] [address] [id number] [address] [place] [address], [place] [address] Oct, [facility] [address] [id number] [address] [place] [address], [place] [address] Oct, [facility] [address] [id number] [address] [place] [address], [place] [address] Aug, [facility] [address] [id number] [address] [place] [address], [place] [address] Aug, [facility] [address] [id number] [address] [place] [address], [place] [address] Aug, [facility] [address] [id number] [address] [place] [address], [place] [address] Aug, [facility] [address] [id number] [address] [place] [address], [place] [address] Aug, [facility] [address] [id number] [address] [place] [address], [place] [address] Aug, [facility] [address] [id number] [address] [place] [address], [place] [address] Aug, [facility] [address] [id number] [address] [place] [address], [place] [address] 14 Aug, 2012 [facility] [address] [id number] [address] [place] [address], [place] [address] Aug, [facility] [address] [id number] [address] [place] [address], [place] [address] Aug, [facility] [address] [id number] [address] [place] [address], [place] [address] 29 Jul, 2012 [facility] [address] [id number] [address] [place] [address], [place] [address] 15 Jul, 2012 [facility] [address] [id number] [address] [place] [address], [place] [address] 08 Jul, 2012 [facility] [address] [id number] [address] [place] [address], [place] [address] 20 Jun, 2012 [facility] [address] [id number] [address] [place] [address], [place] [address] 18 Jun, 2012 [facility] [address] [id number] [address] [place] [address], [place] [address] 18 Jun, 2012 [facility] [address] [id number] [address] [place] [address], [place] [address] 18 Jun, 2012 [facility] [address] [id number] [address] [place] [address], [place] [address] 18 Jun, 2012 [facility] [address] [id number] [address] [place] [address], [place] [address] 14 Jun, 2012 [facility] [address] [id number] [address] [place] [address], [place] [address] 14 Jun, 2012 [facility] [address] [id number] [address] [place] [address], [place] [address] 13 Jun, 2012 [facility] [address] [id number] [address] [place] [address], [place] [address] 13 Jun, 2012 [facility] [address] [id number] [address] [place] [address], [place] [address] 11 Jun, 2012 [facility] [address] [id number] [address] [place] [address], [place] [address] 11 Jun, 2012 [facility] [address] [id number] [address] [place] [address], [place] [address] 11 Jun, 2012 [facility] [address] [id number] [address] [place] [address], [place] [address] 11 Jun, 2012 [facility] [address] [id number] [address] [place] [address], [place] [address] 07 Jun, 2012 [facility] [address] [id number] [address] [place] [address], [place] [address] Jun, [facility] [address] [id number] [address] [place] [address], [place] [address] Jun, [facility] [address] [id number] [address] [place] [address], [place] [address] Jun, [facility] [address] [id number] [address] [place] [address], [place] [address] Jun, [facility] [address] [id number] [address] [place] [address], [place] [address] Jun, [facility] [address] [id number] [address] [place] [address], [place] [address] Jun, [facility] [address] [id number] [address] [place] [address], [place] [address] Jun, [facility] [address] [id number] [address] [place] [address], [place] [address] Jun, [facility] [address] [id number] [address] [place] [address], [place] [address] Jun, [facility] [address] [id number] [address] [place] [address], [place] [address] May, [facility] [address] [id number] [address] [place] [address], [place] [address] May, [facility] [address] [id number] [address] [place] [address], [place] [address] May, [facility] [address] [id number] [address] [place] [phone] May, [facility] [address] [id number] [address] [place] [address], [place] [address] May, [facility] [address] [id number] [address] [place] [address], [place] [address] May, [facility] [address] [id number] [address] [place] [address], [place] [address] May, [facility] [address] [id number] [address] [place] [id number] 06 May, 2012 [facility] [address] [id number] [address] [place] [address], [place] [address] 30 Apr, 2012 [facility] [address] [id number] [address] [place] [phone] 30 Apr, 2012 [facility] [address] [id number] [address] [place] [address], [place] [address] 29 Apr, 2012 [facility] [address] [id number] [address] [place] [address], [place] [address] 16 Apr, 2012 [facility] [address] [id number] [address] [place] [address], [place] [address] Apr, [facility] [address] [id number] [address] [place] [address], [place] [address] Apr, [facility] [address] [id number] [address] [place] [phone] Apr, [facility] [address] [id number] [address] [place] [address], [place] [address] Apr, [facility] [address] [id number] [address] [place] [address], [place] [address] 09 Apr, 2012 [facility] [address] [id number] [address] [place] [phone] 08 Apr, 2012 [facility] [address] [id number] [address] [place] [phone] 04 Apr, 2012 [facility] [address] [id number] [address] [place] [id number] 02 Apr, 2012 [facility] [address] [id number] [address] [place] [phone] 19 Mar, 2012 [facility] [address] [id number] [address] [place] [phone] 18 Mar, 2012 [facility] [address] [id number] [address] [place] [phone] 12 Mar, 2012 [facility] [address] [id number] [address] [place] [address], [place] [address] Mar, [facility] [address] [id number] [address] [place] [address], [place] [id number] Mar, [facility] [address] [id number] [address] [place] [address], [place] [id number] Mar, [facility] [address] [id number] [address] [place] [address], [place] [address] Mar, [facility] [address] [id number] [address] [place] [address], [place] [address] Jan, [facility] [address] [id number] [address] [place] [address], [place] [address] Jan, [facility] [address] [id number] [address] [place] [address], [place] [id number] Jan, [facility] [address] [id number] [address] [place] [address], [place] [id number] Jan, [facility] [address] [id number] [address] [place] [address], [place] [address] Jan, [facility] [address] [id number] [address] [place] [address], [place] [address] Jan, [facility] [address] [id number] [address] [place] [address], [place] [address] Jan, [facility] [address] [id number] [address] [place] [address], [place] [address] Jan, [facility] [address] [id number] [address] [place] [address], [place] [address] Jan, [facility] [address] [id number] [address] [place] [address], [place] [address] Jan, [facility] [address] [id number] [address] [place] [address], [place] [address] Jan, [facility] [address] [id number] [address] [place] [address], [place] [address] Dec, [facility] [address] [id number] [address] [place] [address], [place] [address] 27 Jan, 2012 [facility] [address] [id number] [address] [place] [address], [place] [address] Dec, [facility] [address] [id number] [address] [place] [address], [place] [address] 26 Jan, 2012 [facility] [address] [id number] [address] [place] [address], [place] [address] 20 Jan, 2012 [facility] [address] [id number] [address] [place] [address], [place] [address] 19 Jan, 2012 [facility] [address] [id number] [address] [place] [address], [place] [address] 18 Jan, 2012 [facility] [address] [id number] [address] [place] [address], [place] [address] 17 Jan, 2012 [facility] [address] [id number] [address] [place] [address], [place] [address] 16 Jan, 2012 [facility] [address] [id number] [address] [place] [address], [place] [address] Dec, [facility] [address] [address] [id number] [address] [place] [address], [place] [address] Dec, [facility] [address] [id number] [address] [place] [address], [place] [address] Dec, [facility] [address] [id number] [address] [place] [address], [place] [address] Dec, [facility] [address] [id number] [address] [place] [address], [place] [address] Dec, [facility] [address] [id number] [address] [place] [address], [place] [address] Dec, [facility] [address] [id number] [address] [place] [address], [place] [address] Dec, [facility] [address] [id number] [address] [place] [address], [place] [address] Dec, [facility] [address] [id number] [address] [place] [address], [place] [address] Dec, [facility] [address] [id number] [address] [place] [address], [place] [address] Dec, [facility] [address] [id number] [address] [place] [address], [place] [address] October, [facility] [address] [id number] [address] [place] [address], [place] [address] October, [facility] [address] [id number] [address] [place] [address], [place] [address] October, [facility] [address] [id number] [address] [place] [address], [place] [address] October, [facility] [address] [id number] [address] [place] [address], [place] [address] October, [facility] [address] [id number] [address] [place] [address], [place] [address] October, [facility] [address] [id number] [address] [place] [address], [place] [address] Oct, [facility] [address] [id number] [address] [place] [address], [place] [address] Oct, [facility] [address] [id number] [address] [place] [address], [place] [address] Oct, [facility] [address] [id number] [address] [place] [address], [place] [address] Oct, [facility] [address] [id number] [address] [place] [address], [place] [address] Oct, [facility] [address] [id number] [address] [place] [address], [place] [address] Oct, [facility] [address] [id number] [address] [place] [address], [place] [address] Oct, [facility] [address] [id number] [facility] [address] 29 Sep, 2011 [facility] [address] [id number] [address] [place] [address], [place] [address] 29 Sep, 2011 [facility] [address] [id number] [address] [place] [address], [place] [address] 19 Sep, 2011 [facility] [address] [id number] [address] [place] [address], [place] [address] 13 Sep, 2011 [facility] [address] [id number] [address] [place] [address], [place] [address] 05 Sep, 2011 [facility] [address] [id number] [address] [place] [address], [place] [address] 05 Sep, 2011 [facility] [address] [id number] [address] [place] [address], [place] [address] 27 Aug, 2011 [facility] [address] [id number] [address] [place] [address], [place] [address] 20 Aug, 2011 [facility] [address] [id number] [address] [place] [address], [place] [address] 08 Aug, 2011 [facility] [address] [id number] [address] [place] [address], [place] [address] Jul, [facility] [address] [id number] [address] [place] [address], [place] [address] Jul, [facility] [address] [id number] [address] [place] [address], [place] [address] Jul, [facility] [address] [id number] [address] [place] [address], [place] [address] Jul, [facility] [address] [id number] [address] [place] [address], [place] [address] Jun, [facility] [address] [id number] [address] [place] [address], [place] [address] Jun, [facility] [address] [id number] [address] [address] May, [facility] [address] [id number] [address] [place] [address] May, [facility] [address] [id number] [address] [place] [address] May, [facility] [address] [id number] [address] [place] [address] May, [facility] [address] [id number] [address] [place] [address] May, [facility] [address] [id number] [address] [place] [address] Apr, [facility] [address] [id number] [address] [place] [address] Apr, [facility] [address] [id number] [address] [place] [address] Apr, [facility] [address] [id number] [address] [place] [address] Jan, [facility] [address] [id number] [address] [place] [phone] Dec, [facility] [address] [id number] [address] [place] [address] October, [facility] [address] [id number] [address] [place] [address] Jun, [facility] [address] [id number] [address] [place] [address] Apr, [facility] [address] [id number] [address] [place] [id number] Apr, [facility] [address] [id number] [address] [place] [address] Apr, [facility] [address] [id number] [address] [place] [phone] Jun, IMMUNIZATIONS No Known Immunizations SOCIAL HISTORY Never Assessed REASON FOR VISIT Medication refill request PLAN OF CARE VITAL SIGNS MEDICATIONS Medication Instructions Dosage Frequency Start Date End Date Duration S taylor Prazosin HCl 5 mg Orally Once a day TAKE ONE CAPSULE BY MOUTH ONCE DAILY AT BEDTIME 24h 30 days Active RESULTS No Results PROCEDURES No Known procedures INSTRUCTIONS MEDICATIONS ADMINISTERED No Known Medications MEDICAL (GENERAL) HISTORY Type Description Date Medical History Psychiatric disorder Medical History Hard of hearing Surgical History Neofibrous tumor Surgical History back injection Hospitalization History Intestinal blockage Hospitalization History past psychiatric hospitalizations x2
--- OUTSIDE RECORDS SUMMARY | 2020-01-25 13:10 | XMS REPORT ---
Author Author Ana ESCAMILLAYEN [facility] Address [address] [place] [address] Care Team Providers Care Buggyman Name Role Phone FRANCINE, KWAME Unavailable PROBLEMS Type Condition ICD9-CM Code UHW50-XF Code Onset Dates Condition S tatus SNOMED Code Problem Attention deficit R41.840 Active 76 352835 Problem Cannabis abuse F12.10 Active 78509 009 Problem Chronic hepatitis C without hepatic coma B18.2 Active 464225394 Problem Attention deficit hyperactivity disorder (ADHD), combi luciano type F90.2 Active 63861603 Problem Bipolar disorder, in partial remission, most rec ent episode hypomanic F31.71 Active 049992399 Problem H/O laminectomy Z98.89 Active 1616 94211 Problem Bipolar 1 disorder F31.9 Active 3 09669771 Problem Anxiety disorder, unspecified type F41.9 Active 151287891 Problem Other chronic pain G89.29 Active 8 [id number] ALLERGIES No Information ENCOUNTERS Encounter Location Date Diagnosis [facility] [address] [facility] [id number] [address] [place] [address] Apr, [facility] [address] [facility] [id number] [address] [place] [address] Mar, [facility] [address] [facility] [id number] [address] [place] [address] Mar, Bipolar disorder, in partial remission, most recent episode hypomanic F31.71 [facility] [address] [facility] [id number] [address] [place] [address] Jan, Bipolar disorder, in partial remission, most recent episode hypomanic F31.71 [facility] [address] [facility] [id number] [address] [place] [address] Jan, Bipolar disorder, in partial remission, most recent episode hypomanic F31.71 [facility] [address] [id number] [address] [place] [address] Dec, Bipolar disorder, in partial remission, most recent episode hypomanic F31.71 [facility] [address] [id number] [address] [place] [address] Dec, Bipolar disorder, in partial remission, most recent episode hypomanic F31.71 ; Attention deficit hyperactivity disorder (ADHD), combined type F90.2 ; Anxiety disorder, unspecified type F41.9 and 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 card 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 Z79.899 [facility] [address] [id number] [address] [place] [address] Dec, Bipolar disorder, in partial remission, most recent episode hypomanic F31.71 [facility] [address] [id number] [address] [place] [address] Dec, Bipolar disorder, in partial remission, most recent episode hypomanic F31.71 [facility] [address] [id number] [address] [place] [address] October, Bipolar disorder, in partial remission, most recent episode hypomanic F31.71 [facility] [address] [id number] [address] [place] [address] October, [facility] [address] [id number] [address] [place] [address] October, [facility] [address] [id number] [address] [place] [address] Oct, Bipolar disorder, in partial remission, most recent episode hypomanic F31.71 ; Attention deficit hyperactivity disorder (ADHD), combined type F90.2 ; Anxiety disorder, unspecified type F41.9 and Encounter for drug screening Z02.83 [facility] [address] [id number] [address] [place] [address] Oct, Bipolar disorder, in partial remission, most recent episode hypomanic F31.71 [facility] [address] [id number] [address] [place] [address] Oct, Bipolar disorder, in partial remission, most recent episode hypomanic F31.71 [facility] [address] [facility] [id number] [address] [place] [address] Aug, Bipolar disorder, in partial remission, most recent episode hypomanic F31.71 [facility] [address] [facility] [id number] [address] [place] [address] Aug, Bipolar disorder, in partial remission, most recent episode hypomanic F31.71 [facility] [address] [id number] [address] [place] [address] Aug, Bipolar disorder, in partial remission, most recent episode hypomanic F31.71 [facility] [address] [facility] [id number] [address] [place] [address] Jul, Bipolar disorder, in partial remission, most recent episode hypomanic F31.71 ; Attention deficit hyperactivity disorder (ADHD), combined type F90.2 and Anxiety disorder, unspecified type F41.9 [facility] [address] [facility] [id number] [address] [place] [address] Jul, Bipolar disorder, in partial remission, most recent episode hypomanic F31.71 [facility] [address] [facility] [id number] [address] [place] [address] Jun, Bipolar disorder, in partial remission, most recent episode hypomanic F31.71 [facility] [address] [facility] [id number] [address] [place] [address] May, Bipolar disorder, in partial remission, most recent episode hypomanic F31.71 [facility] [address] [facility] [id number] [address] [place] [address] May, Bipolar disorder, in partial remission, most recent episode hypomanic F31.71 [facility] [address] [facility] [id number] [address] [place] [address] Apr, [facility] [address] [facility] [id number] [address] [place] [address] Apr, Bipolar disorder, in partial remission, most recent episode hypomanic F31.71 ; Attention deficit hyperactivity disorder (ADHD), combined type F90.2 ; Anxiety disorder, unspecified type F41.9 and Cannabis abuse F12.10 [facility] [address] [id number] [address] [place] [address] Apr, Attention deficit hyperactiv ity disorder (ADHD), combined type F90.2 [facility] [address] [id number] [address] [place] [address] Mar, Attention deficit hyperactiv ity disorder (ADHD), combined type F90.2 [facility] [address] [id number] [address] [place] [address] Mar, Anxiety disorder, unspecifie d type F41.9 [facility] [address] [id number] [address] [place] [address] Jan, Attention deficit hyperactiv ity disorder (ADHD), combined type F90.2 [facility] [address] [facility] [id number] [address] [place] [address] Jan, Anxiety disorder, unspecifie d type F41.9 [facility] [address] [facility] [id number] [address] [place] [address] Jan, Other chronic pain G89.29 ; Chronic hepatitis C without hepatic coma B18.2 and Bipolar 1 disorder F31.9 [facility] [address] [facility] [id number] [address] [place] [address] Dec, Attention deficit hyperactiv ity disorder (ADHD), combined type F90.2 [facility] [address] [id number] [address] [place] [address] Dec, Bipolar disorder, in partial remission, most recent episode hypomanic F31.71 ; Attention deficit hyperactivity disorder (ADHD), combined type F90.2 and Anxiety disorder, unspecified type F41.9 [facility] [address] [id number] [address] [place] [address] Dec, Bipolar disorder, in partial remission, most recent episode hypomanic F31.71 ; Attention deficit hyperactivity disorder (ADHD), combined type F90.2 and Anxiety disorder, unspecified type F41.9 [facility] [address] [id number] [address] [place] [address] Dec, Bipolar 1 disorder F31.9 and Attention deficit R41.840 [facility] [address] [id number] [address] [place] [address] Oct, Other chronic pain G89.29 ; Alopecia L65.9 and Screening, lipid Z13.220 [facility] [address] [id number] [address] [place] [address] Oct, [facility] [address] [facility] [id number] [address] [place] [address] Aug, [facility] [address] [facility] [id number] [address] [place] [address] Aug, Eustachian tube dysfunction, right H69.81 ; Vertigo R42 and Other chronic pain G89.29 [facility] [address] [id number] [address] [place] [address] Aug, [facility] [address] [facility] [id number] [address] [place] [address] Jun, [facility] [address] [id number] [address] [place] [address] Jun, Low back pain M54.5 and Othe r chronic pain G89.29 [facility] [address] [id number] [address] [place] [address] Jun, [facility] [address] [id number] [address] [place] [address] May, [facility] [address] [id number] [address] [place] [address] Jan, [facility] [address] [facility] [id number] [address] [place] [address] Dec, [facility] [address] [facility] [id number] [address] [place] [address] Dec, [facility] [address] [facility] [id number] [address] [place] [address] Jun, [facility] [address] [facility] [id number] [address] [place] [address] Apr, Eustachian tube dysfunction, unspecified laterality H69.80 ; Hot flashes N95.1 and Encounter for immunization Z23 [facility] [address] [id number] [address] [place] [address] Jan, [facility] [address] [facility] [id number] [address] [place] [address] Jan, [facility] [address] [facility] [id number] [address] [place] [address] Jan, [facility] [address] [facility] [id number] [address] [place] [address] Jan, [facility] [address] [facility] [id number] [address] [place] [address] Jan, Encounter to establish care V65.8 ; Bipolar 1 disorder 296.7 ; Abdominal pain 789.00 ; Constipation 564.00 ; Hard of hearing 389.9 and Drug abuse 305.90 [facility] [address] [facility] [id number] [address] [place] [address] Dec, [facility] [address] [facility] [id number] [address] [place] [address] October, [facility] [address] [facility] [id number] [address] [place] [address] October, [facility] [address] [facility] [id number] [address] [place] [address] Oct, [facility] [address] [facility] [id number] [address] [place] [address] Oct, [facility] [address] [id number] [address] [place] [address], [place] [address] Oct, [facility] [address] [id number] [address] [place] [address], [place] [address] Aug, [facility] [address] [id number] [address] [place] [address], [place] [address] Aug, [facility] [address] [id number] [address] [place] [address], [place] [address] Aug, [facility] [address] [id number] [address] [place] [address], [place] [address] Aug, 2014 [facility] [address] [id number] [address] [place] [address], [place] [address] Aug, 2014 [facility] [address] [id number] [address] [place] [address], [place] [address] Aug, 2014 [facility] [address] [id number] [address] [place] [address], [place] [address] Aug, 2014 [facility] [address] [id number] [address] [place] [address], [place] [address] Aug, 2014 [facility] [address] [id number] [address] [place] [address], [place] [address] Aug, 2014 [facility] [address] [id number] [address] [place] [address], [place] [address] Aug, 2014 [facility] [address] [id number] [address] [place] [address], [place] [address] Aug, 2014 [facility] [address] [id number] [address] [place] [address], [place] [address] Aug, 2014 [facility] [address] [id number] [address] [place] [address], [place] [address] Aug, 2014 [facility] [address] [id number] [address] [place] [address] Aug, 2014 [facility] [address] [id number] [address] [place] [id number] Aug, [facility] [address] [id number] [address] [place] [address], [place] [address] Jul, [facility] [address] [id number] [address] [place] [address], [place] [address] Jul, [facility] [address] [id number] [address] [place] [address], [place] [address] Jul, [facility] [address] [id number] [address] [place] [address], [place] [address] Jul, [facility] [address] [id number] [address] [place] [address], [place] [address] Jul, [facility] [address] [id number] [address] [place] [address], [place] [address] Jul, [facility] [address] [id number] [address] [place] [address], [place] [address] Jul, [facility] [address] [id number] [address] [place] [address], [place] [address] Jul, [facility] [address] [id number] [address] [place] [address], [place] [address] Jun, [facility] [address] [id number] [address] [place] [address], [place] [address] Jun, [facility] [address] [id number] [address] [place] [address], [place] [address] Jun, [facility] [address] [id number] [address] [place] [address], [place] [address] 29 Jun, 2014 [facility] [address] [id number] [address] [place] [address], [place] [address] 18 Jun, 2014 [facility] [address] [id number] [address] [place] [address], [place] [address] 15 Jun, 2014 [facility] [address] [id number] [address] [place] [address], [place] [address] 15 Jun, 2014 [facility] [address] [id number] [address] [place] [address], [place] [address] Jun, [facility] [address] [id number] [address] [place] [address], [place] [address] Jun, [facility] [address] [id number] [address] [place] [address], [place] [address] Jun, [facility] [address] [id number] [address] [place] [address], [place] [address] Jun, [facility] [address] [id number] [address] [place] [address], [place] [address] May, [facility] [address] [id number] [address] [place] [address], [place] [address] May, [facility] [address] [id number] [address] [place] [address], [place] [address] May, [facility] [address] [id number] [address] [place] [address], [place] [address] May, [facility] [address] [id number] [address] [place] [address], [place] [address] May, [facility] [address] [id number] [address] [place] [address], [place] [address] May, [facility] [address] [id number] [address] [place] [address], [place] [address] May, [facility] [address] [id number] [address] [place] [address], [place] [address] Apr, [facility] [address] [id number] [address] [place] [address], [place] [address] Apr, [facility] [address] [id number] [address] [place] [address], [place] [address] Apr, [facility] [address] [id number] [address] [place] [address], [place] [address] Apr, [facility] [address] [id number] [address] [place] [address], [place] [address] Apr, [facility] [address] [id number] [address] [place] [address], [place] [address] Apr, [facility] [address] [id number] [address] [place] [address], [place] [address] Mar, [facility] [address] [id number] [address] [place] [address], [place] [address] Mar, [facility] [address] [id number] [address] [place] [address], [place] [address] Mar, [facility] [address] [id number] [address] [place] [address], [place] [address] Mar, [facility] [address] [id number] [address] [place] [address], [place] [address] Mar, [facility] [address] [id number] [address] [place] [address], [place] [address] Mar, [facility] [address] [id number] [address] [place] [address], [place] [address] Jan, [facility] [address] [id number] [address] [place] [address], [place] [address] Jan, [facility] [address] [id number] [address] [place] [address], [place] [address] Jan, [facility] [address] [id number] [address] [place] [address], [place] [address] Jan, [facility] [address] [id number] [address] [place] [address], [place] [address] Dec, [facility] [address] [id number] [address] [place] [address], [place] [address] Dec, [facility] [address] [id number] [address] [place] [address], [place] [address] Dec, [facility] [address] [id number] [address] [place] [address], [place] [address] Dec, [facility] [address] [id number] [address] [place] [address], [place] [address] Dec, [facility] [address] [id number] [address] [place] [address], [place] [address] Dec, [facility] [address] [id number] [address] [place] [address], [place] [address] Dec, [facility] [address] [id number] [address] [place] [address], [place] [address] Dec, [facility] [address] [id number] [address] [place] [address], [place] [address] Dec, [facility] [address] [id number] [address] [place] [address], [place] [address] Dec, [facility] [address] [id number] [address] [place] [address], [place] [address] Dec, [facility] [address] [id number] [address] [place] [address], [place] [address] Dec, [facility] [address] [id number] [address] [place] [address], [place] [address] October, [facility] [address] [id number] [address] [place] [address], [place] [address] October, [facility] [address] [id number] [address] [place] [address], [place] [address] October, [facility] [address] [id number] [address] [place] [address], [place] [address] October, [facility] [address] [id number] [address] [place] [address], [place] [address] October, [facility] [address] [id number] [address] [place] [address], [place] [address] October, [facility] [address] [id number] [address] [place] [address], [place] [address] Oct, [facility] [address] [id number] [address] [place] [address], [place] [address] Oct, [facility] [address] [id number] [facility] [place] [address] Oct, [facility] [address] [id number] [facility] [place] [address] Oct, [facility] [address] [id number] [facility] [place] [address] Oct, [facility] [address] [id number] [facility] [place] [address] Oct, [facility] [address] [id number] [facility] [place] [address] Oct, [facility] [address] [id number] [address] [place] [address], [place] [address] Oct, [facility] [address] [id number] [address] [place] [address], [place] [address] Oct, [facility] [address] [id number] [address] [place] [address], [place] [address] Oct, [facility] [address] [id number] [address] [place] [address], [place] [address] Oct, [facility] [address] [id number] [address] [place] [address], [place] [address] Oct, [facility] [address] [id number] [address] [place] [address], [place] [address] 15 Aug, 2013 [facility] [address] [id number] [address] [place] [address], [place] [address] 15 Aug, 2013 [facility] [address] [id number] [address] [place] [address], [place] [address] Aug, [facility] [address] [id number] [address] [place] [address], [place] [address] Aug, [facility] [address] [id number] [address] [place] [address], [place] [address] 05 Aug, 2013 [facility] [address] [id number] [address] [place] [address], [place] [address] 05 Aug, 2013 [facility] [address] [id number] [address] [place] [address], [place] [address] Aug, [facility] [address] [id number] [address] [place] [address], [place] [address] Aug, [facility] [address] [id number] [address] [place] [address], [place] [address] Aug, [facility] [address] [id number] [address] [place] [address], [place] [address] 24 Aug, 2013 [facility] [address] [id number] [address] [place] [address], [place] [address] 24 Aug, 2013 [facility] [address] [id number] [address] [place] [address], [place] [address] Aug, [facility] [address] [id number] [address] [place] [address], [place] [address] Aug, [facility] [address] [id number] [address] [place] [address], [place] [address] 20 Aug, 2013 [facility] [address] [id number] [address] [place] [address], [place] [address] 14 Aug, 2013 [facility] [address] [id number] [address] [place] [address], [place] [address] 14 Aug, 2013 [facility] [address] [id number] [address] [place] [address], [place] [address] 14 Aug, 2013 [facility] [address] [id number] [address] [place] [address], [place] [address] 14 Aug, 2013 [facility] [address] [id number] [address] [place] [address], [place] [address] 07 Aug, 2013 [facility] [address] [id number] [address] [place] [address], [place] [address] 07 Aug, 2013 [facility] [address] [id number] [address] [place] [address], [place] [address] 06 Aug, 2013 [facility] [address] [id number] [address] [place] [address], [place] [address] Aug, [facility] [address] [id number] [address] [place] [address], [place] [address] Aug, [facility] [address] [id number] [address] [place] [address], [place] [address] Aug, [facility] [address] [id number] [address] [place] [address], [place] [address] Aug, [facility] [address] [id number] [address] [place] [address], [place] [address] Jul, [facility] [facility] [address] [id number] [address] [place] [address], [place] [address] Jul, [facility] [address] [id number] [address] [place] [address], [place] [address] Jul, [facility] [address] [id number] [address] [place] [address], [place] [address] Jul, [facility] [address] [id number] [address] [place] [address], [place] [address] Jul, [facility] [address] [id number] [address] [place] [address], [place] [address] Jul, [facility] [address] [id number] [address] [place] [address], [place] [address] Jul, [facility] [address] [id number] [address] [place] [address], [place] [address] Jul, [facility] [address] [id number] [address] [place] [address], [place] [address] Jul, [facility] [address] [id number] [address] [place] [address], [place] [address] Jul, [facility] [address] [id number] [address] [place] [address], [place] [address] Jul, [facility] [address] [id number] [address] [place] [address], [place] [address] 15 Jul, 2013 [facility] [address] [id number] [address] [place] [address], [place] [address] Jul, [facility] [address] [id number] [address] [place] [address], [place] [address] Jul, [facility] [address] [id number] [address] [place] [address], [place] [address] Jul, [facility] [address] [id number] [address] [place] [address], [place] [address] Jul, [facility] [address] [id number] [address] [place] [address], [place] [address] Jul, [facility] [address] [id number] [address] [place] [address], [place] [address] Jul, [facility] [address] [id number] [address] [place] [address], [place] [address] Jul, [facility] [address] [id number] [address] [place] [address], [place] [address] Jul, [facility] [address] [id number] [address] [place] [address], [place] [address] Jun, [facility] [address] [id number] [address] [place] [address], [place] [address] Jun, [facility] [address] [id number] [address] [place] [address], [place] [address] 30 Jun, 2013 [facility] [address] [id number] [address] [place] [address], [place] [address] 30 Jun, 2013 [facility] [address] [id number] [address] [place] [address], [place] [address] Jun, [facility] [address] [id number] [address] [place] [address], [place] [address] Jun, [facility] [address] [id number] [address] [place] [address], [place] [address] Jun, [facility] [address] [id number] [address] [place] [address], [place] [address] Jun, [facility] [address] [id number] [address] [place] [address], [place] [address] Jun, [facility] [address] [id number] [address] [place] [address], [place] [address] Jun, [facility] [address] [id number] [address] [place] [address], [place] [address] Jun, [facility] [address] [id number] [address] [place] [address], [place] [address] Jun, [facility] [address] [id number] [address] [place] [address], [place] [address] Jun, [facility] [address] [id number] [address] [place] [address], [place] [address] Jun, [facility] [address] [id number] [address] [place] [address], [place] [address] Jun, [facility] [address] [id number] [address] [place] [address], [place] [address] 18 Jun, 2013 [facility] [address] [id number] [address] [place] [address], [place] [address] 18 Jun, 2013 [facility] [address] [id number] [address] [place] [address], [place] [address] 17 Jun, 2013 [facility] [address] [id number] [address] [place] [address], [place] [address] 17 Jun, 2013 [facility] [address] [id number] [address] [place] [address], [place] [address] 13 Jun, 2013 [facility] [address] [id number] [address] [place] [address], [place] [address] 12 Jun, 2013 [facility] [address] [id number] [address] [place] [address], [place] [address] 12 Jun, 2013 [facility] [address] [id number] [address] [place], [place] [address] [address] Jun, [facility] [address] [id number] [address] [place] [address], [place] [address] Jun, [facility] [address] [id number] [address] [place] [address], [place] [address] Jun, [facility] [address] [id number] [address] [place] [address], [place] [address] Jun, [facility] [address] [id number] [address] [place] [address], [place] [address] Jun, [facility] [address] [id number] [address] [place] [address], [place] [address] May, [facility] [address] [id number] [address] [place] [address], [place] [address] May, [facility] [address] [id number] [address] [place] [address], [place] [address] May, [facility] [address] [id number] [address] [place] [address] May, [facility] [address] [id number] [address] [place] [address] May, [facility] [address] [id number] [address] [place] [address] May, [facility] [address] [id number] [address] [place] [address] Apr, [facility] [address] [id number] [address] [place] [address] Apr, [facility] [address] [id number] [address] [place] [address] Apr, [facility] [address] [id number] [address] [place] [address] Apr, [facility] [address] [id number] [address] [place] [address] Apr, [facility] [address] [id number] [address] [place] [address], [place] [address] 15 Apr, 2013 [facility] [address] [id number] [address] [place] [address], [place] [address] 15 Apr, 2013 [facility] [address] [id number] [address] [place] [address], [place] [address] 01 Apr, 2013 [facility] [address] [id number] [address] [place] [address], [place] [address] 26 Mar, 2012 [facility] [address] [id number] [address] [place] [address], [place] [address] 24 Mar, 2012 [facility] [address] [id number] [address] [place] [address], [place] [address] 17 Mar, 2012 [facility] [address] [id number] [address] [place] [address], [place] [address] 17 Mar, 2012 [facility] [address] [id number] [address] [place] [address], [place] [address] 11 Mar, 2012 [facility] [address] [id number] [address] [place] [address], [place] [address] 10 Mar, 2013 [facility] [address] [id number] [address] [place] [address], [place] [address] 05 Mar, 2012 [facility] [address] [id number] [address] [place] [address], [place] [address] 04 Mar, 2013 [facility] [address] [id number] [address] [place] [address], [place] [address] 20 Jan, 2013 [facility] [address] [id number] [address] [place] [address], [place] [address] 19 Jan, 2013 [facility] [address] [id number] [address] [place] [address], [place] [address] 14 Jan, 2013 [facility] [address] [id number] [address] [place] [address], [place] [address] 12 Jan, 2013 [facility] [address] [id number] [address] [place] [address], [place] [address] Jan, [facility] [address] [id number] [address] [place] [address], [place] [address] Jan, [facility] [address] [id number] [address] [place] [address], [place] [address] Dec, [facility] [address] [id number] [address] [place] [address], [place] [address] Dec, [facility] [address] [id number] [address] [place] [address], [place] [address] Dec, [facility] [address] [id number] [address] [place] [address], [place] [address] Dec, [facility] [address] [id number] [address] [place] [address], [place] [address] Dec, [facility] [address] [id number] [address] [place] [address], [place] [address] Dec, [facility] [address] [id number] [address] [place] [address], [place] [address] Dec, [facility] [address] [id number] [address] [place] [address], [place] [address] Dec, [facility] [address] [id number] [address] [place] [address], [place] [address] 15 Dec, 2012 [facility] [address] [id number] [address] [place] [address], [place] [address] Dec, [facility] [address] [id number] [address] [place] [address], [place] [address] Dec, [facility] [address] [id number] [address] [place] [address], [place] [address] Dec, [facility] [address] [id number] [address] [place] [address], [place] [address] Dec, [facility] [address] [id number] [address] [place] [address], [place] [address] 17 Dec, 2012 [facility] [address] [id number] [address] [place] [address], [place] [address] Dec, [facility] [address] [id number] [address] [place] [address], [place] [address] Dec, [facility] [address] [id number] [address] [place] [address], [place] [address] October, [facility] [address] [id number] [address] [place] [address], [place] [address] October, [facility] [address] [id number] [address] [place] [address], [place] [address] October, [facility] [address] [id number] [address] [place] [address], [place] [address] October, [facility] [address] [id number] [address] [place] [address], [place] [address] October, [facility] [address] [id number] [address] [place] [address], [place] [address] October, [facility] [address] [id number] [address] [place] [address], [place] [address] October, [facility] [address] [id number] [address] [place] [address], [place] [address] Oct, [facility] [address] [id number] [address] [place] [address], [place] [address] Oct, [facility] [address] [id number] [address] [place] [address], [place] [address] Oct, [facility] [address] [id number] [address] [place] [address], [place] [address] Oct, [facility] [address] [id number] [address] [place] [address], [place] [address] Oct, [facility] [address] [id number] [address] [place] [address], [place] [address] 18 Oct, 2012 [facility] [address] [id number] [address] [place] [address], [place] [address] Oct, [facility] [address] [id number] [address] [place] [address], [place] [address] 15 Oct, 2012 [facility] [address] [id number] [address] [place] [address], [place] [address] Oct, [facility] [address] [id number] [address] [place] [address], [place] [address] Oct, [facility] [address] [id number] [address] [place] [address], [place] [address] Oct, [facility] [address] [id number] [address] [place] [address], [place] [address] Oct, [facility] [address] [id number] [address] [place] [address], [place] [address] Aug, [facility] [address] [id number] [address] [place] [address], [place] [address] Aug, [facility] [address] [id number] [address] [place] [address], [place] [address] Aug, [facility] [address] [id number] [address] [place] [address], [place] [address] Aug, [facility] [address] [id number] [address] [place] [address], [place] [address] Aug, [facility] [address] [id number] [address] [place] [address], [place] [address] 05 Aug, 2012 [facility] [address] [id number] [address] [place] [address], [place] [address] 20 Aug, 2012 [facility] [address] [id number] [address] [place] [address], [place] [address] 14 Aug, 2012 [facility] [address] [id number] [address] [place] [address], [place] [address] 12 Aug, 2012 [facility] [address] [id number] [address] [place] [address], [place] [address] Aug, [facility] [address] [id number] [address] [place], [place] [address], [place] [address] 29 Jul, 2012 [facility] [address] [id number] [address] [place] [address], [place] [address] 15 Jul, 2012 [facility] [address] [id number] [address] [place] [address], [place] [address] 08 Jul, 2012 [facility] [address] [id number] [address] [place] [address], [place] [address] 20 Jun, 2012 [facility] [address] [id number] [address] [place] [address], [place] [address] 18 Jun, 2012 [facility] [address] [id number] [address] [place] [address], [place] [address] 18 Jun, 2012 [facility] [address] [id number] [address] [place] [address], [place] [address] 18 Jun, 2012 [facility] [address] [id number] [address] [place] [address], [place] [address] 18 Jun, 2012 [facility] [address] [id number] [address] [place] [address], [place] [address] 14 Jun, 2012 [facility] [address] [id number] [address] [place] [address], [place] [address] 14 Jun, 2012 [facility] [address] [id number] [address] [place] [address], [place] [address] 13 Jun, 2012 [facility] [address] [id number] [address] [place] [address], [place] [address] 13 Jun, 2012 [facility] [address] [id number] [address] [place] [address], [place] [address] 11 Jun, 2012 [facility] [address] [id number] [address] [place] [address], [place] [address] 11 Jun, 2012 [facility] [address] [id number] [address] [place] [address], [place] [address] 11 Jun, 2012 [facility] [address] [id number] [address] [place] [address], [place] [address] 11 Jun, 2012 [facility] [address] [id number] [address] [place] [address], [place] [address] 07 Jun, 2012 [facility] [address] [id number] [address] [place] [address], [place] [address] Jun, [facility] [address] [id number] [address] [place] [address], [place] [address] Jun, [facility] [address] [id number] [address] [place] [address], [place] [address] 06 Jun, 2012 [facility] [address] [id number] [address] [place] [address], [place] [address] Jun, [facility] [address] [id number] [address] [place] [address], [place] [address] Jun, [facility] [address] [id number] [address] [place] [address], [place] [address] Jun, [facility] [address] [id number] [address] [place] [address], [place] [address] Jun, [facility] [address] [id number] [address] [place] [address], [place] [address] Jun, [facility] [address] [id number] [address] [place] [address], [place] [address] Jun, [facility] [address] [id number] [address] [place] [address], [place] [address] May, [facility] [address] [id number] [address] [place] [address], [place] [address] May, [facility] [address] [id number] [address] [place] [address], [place] [address] May, [facility] [address] [id number] [address] [place] [address], [place] [address] May, [facility] [address] [id number] [address] [place] [address], [place] [address] May, [facility] [address] [id number] [address] [place] [address], [place] [address] May, [facility] [address] [id number] [address] [place] [address], [place] [address] May, [facility] [address] [id number] [address] [place] [address], [place] [address] May, [facility] [address] [id number] [address] [place] [address], [place] [address] Apr, [facility] [address] [id number] [address] [place] [address], [place] [address] Apr, [facility] [address] [id number] [address] [place] [address], [place] [address] Apr, [facility] [address] [id number] [address] [place] [address], [place] [address] Apr, [facility] [address] [id number] [address] [place] [address], [place] [address] Apr, [facility] [address] [id number] [address] [place] [address], [place] [address] Apr, [facility] [address] [id number] [address] [place] [address], [place] [address] Apr, [facility] [address] [id number] [address] [place] [address], [place] [address] Apr, [facility] [address] [id number] [address] [place] [address], [place] [address] Apr, [facility] [address] [id number] [address] [place] [id number] Apr, [facility] [address] [id number] [address] [place] [address], [place] [address] Apr, [facility] [address] [id number] [address] [place] [address], [place] [address] Apr, [facility] [address] [id number] [address] [place] [address], [place] [address] Mar, [facility] [address] [id number] [address] [place] [id number] 18 Mar, 2012 [facility] [address] [id number] [address] [place] [address], [place] [address] 12 Mar, 2012 [facility] [address] [id number] [address] [place] [address], [place] [address] Mar, [facility] [address] [id number] [address] [place] [id number] Mar, [facility] [address] [id number] [address] [place] [id number] Mar, [facility] [address] [id number] [address] [place] [address], [place] [address] Mar, [facility] [address] [id number] [address] [place] [id number] Jan, [facility] [address] [id number] [address] [place] [id number] Jan, [facility] [address] [id number] [address] [place] [id number] Jan, [facility] [address] [id number] [address] [place] [id number] Jan, [facility] [address] [id number] [address] [place] [id number] Jan, [facility] [address] [id number] [address] [place] [phone] Jan, [facility] [address] [id number] [address] [place] [id number] Jan, [facility] [address] [id number] [address] [place] [address], [place] [address] 14 Feb, 2012 [facility] [address] [id number] [address] [place] [address], [place] [address] Jan, [facility] [address] [id number] [address] [place] [address], [place] [address] Jan, [facility] [address] [id number] [address] [place] [address], [place] [address] Jan, [facility] [address] [id number] [address] [place] [address], [place] [address] Dec, [facility] [address] [id number] [address] [place] [address], [place] [address] Dec, [facility] [address] [id number] [address] [place] [address], [place] [address] Dec, [facility] [address] [id number] [address] [place] [address], [place] [address] Dec, [facility] [address] [id number] [address] [place] [address], [place] [address] Dec, [facility] [address] [id number] [address] [place] [address], [place] [address] Dec, [facility] [address] [id number] [address] [place] [address], [place] [address] Dec, [facility] [address] [id number] [address] [place] [address], [place] [address] 17 Jan, 2012 [facility] [address] [id number] [address] [place] [address], [place] [address] 16 Jan, 2012 [facility] [address] [id number] [address] [place] [address], [place] [address] Dec, [facility] [address] [id number] [address] [place] [address], [place] [address] Dec, [facility] [address] [id number] [address] [place] [address], [place] [address] Dec, [facility] [address] [id number] [address] [place] [address], [place] [address] Dec, [facility] [address] [id number] [address] [place] [address], [place] [address] Dec, [facility] [address] [id number] [address] [place] [address], [place] [address] Dec, [facility] [address] [id number] [address] [place] [address], [place] [address] Dec, [facility] [address] [id number] [address] [place] [address], [place] [address] Dec, [facility] [address] [id number] [address] [place] [address], [place] [address] Dec, [facility] [address] [id number] [address] [place] [address], [place] [address] Dec, [facility] [address] [id number] [address] [place] [address], [place] [address] October, [facility] [address] [id number] [address] [place] [address], [place] [address] October, [facility] [address] [id number] [address] [place] [address], [place] [address] October, [facility] [address] [id number] [address] [place] [address], [place] [address] October, [facility] [address] [id number] [address] [place] [address], [place] [address] October, [facility] [address] [id number] [address] [place] [address], [place] [address] October, [facility] [facility] [address] [id number] [address] [place] [address], [place] [address] Oct, [facility] [address] [id number] [address] [place] [address], [place] [address] Oct, [facility] [address] [id number] [address] [place] [address], [place] [address] Oct, [facility] [address] [id number] [address] [place] [address], [place] [address] Oct, [facility] [address] [id number] [address] [place] [address], [place] [address] Oct, [facility] [address] [id number] [address] [place] [address], [place] [address] Oct, [facility] [address] [id number] [address] [place] [address], [place] [address] Oct, [facility] [address] [id number] [address] [place] [address], [place] [address] 29 Sep, 2011 [facility] [address] [id number] [address] [place] [address], [place] [address] 29 Sep, 2011 [facility] [address] [id number] [address] [place] [address], [place] [address] Aug, [facility] [address] [id number] [address] [place] [address], [place] [address] Aug, [facility] [address] [id number] [address] [place] [address], [place] [address] Aug, [facility] [address] [id number] [address] [place] [address], [place] [address] Aug, [facility] [address] [id number] [address] [place] [address], [place] [address] Aug, [facility] [address] [id number] [address] [place] [address], [place] [address] Aug, [facility] [address] [id number] [address] [place] [address], [place] [address] Aug, [facility] [address] [id number] [address] [place] [address], [place] [address] Jul, [facility] [address] [id number] [address] [place] [address], [place] [address] Jul, [facility] [address] [id number] [address] [place] [address], [place] [address] Jul, [facility] [address] [id number] [address] [place] [address], [place] [address] Jul, [facility] [address] [id number] [address] [place] [address], [place] [address] Jun, [facility] [address] [id number] [address] [place] [address], [place] [address] Jun, [facility] [address] [id number] [address] [place] [address], [place] [address] May, [facility] [address] [id number] [address] [place] [address], [place] [address] May, [facility] [address] [id number] [address] [place] [address], [place] [address] May, [facility] [address] [id number] [address] [place] [address], [place] [address] May, [facility] [address] [id number] [address] [place] [address], [place] [address] May, [facility] [address] [id number] [address] [place] [address], [place] [address] Apr, [facility] [address] [id number] [address] [place] [address], [place] [address] Apr, [facility] [address] [id number] [address] [place] [address], [place] [address] Apr, [facility] [address] [id number] [address] [place] [address], [place] [address] 15 Jan, 2011 [facility] [address] [id number] [address] [place] [address], [place] [address] 13 Dec, 2010 [facility] [address] [id number] [address] [place] [address], [place] [address] October, [facility] [address] [id number] [address] [place] [address], [place] [address] Jun, [facility] [address] [id number] [address] [place] [address], [place] [address] 23 Apr, 2009 [facility] [address] [id number] [address] [place] [address], [place] [address] 13 Apr, 2009 [facility] [address] [id number] [address] [place] [address], [place] [address] Apr, [facility] [address] [facility] [id number] [address] [place] [address] Jun, IMMUNIZATIONS No Known Immunizations SOCIAL HISTORY Never Assessed REASON FOR VISIT valium refill PLAN OF CARE VITAL SIGNS MEDICATIONS Medication [...]
--- OUTSIDE RECORDS SUMMARY | 2020-01-25 13:11 | XMS REPORT ---
Author Author Ana ESCAMILLAYEN [facility] Address [address] [place] [address] Care Team Providers Care Senior Director Finance Name Role Phone FRANCINE, KWAME Unavailable PROBLEMS Type Condition ICD9-CM Code QIR93-SS Code Onset Dates Condition S tatus SNOMED Code Problem Attention deficit R41.840 Active 76 106161 Problem Cannabis abuse F12.10 Active 32057 009 Problem Chronic hepatitis C without hepatic coma B18.2 Active 750367695 Problem Attention deficit hyperactivity disorder (ADHD), combi luciano type F90.2 Active 47709764 Problem Bipolar disorder, in partial remission, most rec ent episode hypomanic F31.71 Active 662570107 Problem H/O laminectomy Z98.89 Active 1616 15092 Problem Bipolar 1 disorder F31.9 Active 3 38996674 Problem Anxiety disorder, unspecified type F41.9 Active 399478904 Problem Other chronic pain G89.29 Active 8 [id number] ALLERGIES No Information ENCOUNTERS Encounter Location Date Diagnosis [facility] [address] [facility] [id number] [address] [place] [id number] Apr, [facility] [address] [facility] [id number] [address] [place] [id number] Mar, [facility] [address] [facility] [id number] [address] [place] [id number] Jan, Bipolar disorder, in partial remission, most recent episode hypomanic F31.71 [facility] [address] [facility] [id number] [address] [place] [id number] Jan, Bipolar disorder, in partial remission, most recent episode hypomanic F31.71 [facility] [address] [facility] [id number] [address] [place] [id number] Dec, Bipolar disorder, in partial remission, most recent episode hypomanic F31.71 [facility] [address] [id number] [address] [place] [id number] Dec, Bipolar disorder, in partial remission, most recent episode hypomanic F31.71 ; Attention deficit hyperactivity disorder (ADHD), combined type F90.2 ; Anxiety disorder, unspecified type F41.9 and Other rn long term care (current) drug therapy Z79.899 [facility] [address] [id number] [address] [place] [id number] Dec, Bipolar disorder, in partial remission, most recent episode hypomanic F31.71 [facility] [address] [id number] [address] [place] [id number] Dec, Bipolar disorder, in partial remission, most recent episode hypomanic F31.71 [facility] [address] [id number] [address] [place] [id number] October, Bipolar disorder, in partial remission, most recent episode hypomanic F31.71 [facility] [address] [id number] [address] [place] [id number] October, [facility] [address] [id number] [address] [place] [phone] October, [facility] [address] [id number] [address] [place] [id number] Oct, Bipolar disorder, in partial remission, most recent episode hypomanic F31.71 ; Attention deficit hyperactivity disorder (ADHD), combined type F90.2 ; Anxiety disorder, unspecified type F41.9 and Encounter for drug screening Z02.83 [facility] [address] [id number] [address] [place] [id number] Oct, Bipolar disorder, in partial remission, most recent episode hypomanic F31.71 [facility] [address] [id number] [address] [place] [id number] Oct, Bipolar disorder, in partial remission, most recent episode hypomanic F31.71 [facility] [address] [id number] [address] [place] [id number] Aug, Bipolar disorder, in partial remission, most recent episode hypomanic F31.71 [facility] [address] [facility] [id number] [address] [place] [id number] Aug, Bipolar disorder, in partial remission, most recent episode hypomanic F31.71 [facility] [address] [facility] [id number] [address] [place] [id number] Aug, Bipolar disorder, in partial remission, most recent episode hypomanic F31.71 [facility] [address] [id number] [address] [place] [id number] Jul, Bipolar disorder, in partial remission, most recent episode hypomanic F31.71 ; Attention deficit hyperactivity disorder (ADHD), combined type F90.2 and Anxiety disorder, unspecified type F41.9 [facility] [address] [facility] [id number] [address] [place] [id number] Jul, Bipolar disorder, in partial remission, most recent episode hypomanic F31.71 [facility] [address] [id number] [address] [place] [id number] Jun, Bipolar disorder, in partial remission, most recent episode hypomanic F31.71 [facility] [address] [facility] [id number] [address] [place] [id number] May, Bipolar disorder, in partial remission, most recent episode hypomanic F31.71 [facility] [address] [facility] [id number] [address] [place] [id number] May, Bipolar disorder, in partial remission, most recent episode hypomanic F31.71 [facility] [address] [facility] [id number] [address] [place] [id number] Apr, [facility] [address] [facility] [id number] [address] [place] [id number] Apr, Bipolar disorder, in partial remission, most recent episode hypomanic F31.71 ; Attention deficit hyperactivity disorder (ADHD), combined type F90.2 ; Anxiety disorder, unspecified type F41.9 and Cannabis abuse F12.10 [facility] [address] [facility] [id number] [address] [place] [id number] 13 Apr, 2017 Attention deficit hyperactiv ity disorder (ADHD), combined type F90.2 [facility] [address] [facility] [id number] [address] [place] [id number] Mar, Attention deficit hyperactiv ity disorder (ADHD), combined type F90.2 [facility] [address] [facility] [id number] [address] [place] [id number] 14 Mar, 2017 Anxiety disorder, unspecifie d type F41.9 [facility] [address] [facility] [id number] [address] [place] [id number] Jan, Attention deficit hyperactiv ity disorder (ADHD), combined type F90.2 [facility] [address] [facility] [id number] [address] [place] [phone] Jan, Anxiety disorder, unspecifie d type F41.9 [facility] [address] [facility] [id number] [address] [place] [id number] Jan, Other chronic pain G89.29 ; Chronic hepatitis C without hepatic coma B18.2 and Bipolar 1 disorder F31.9 [facility] [address] [facility] [id number] [address] [place] [id number] Dec, Attention deficit hyperactiv ity disorder (ADHD), combined type F90.2 [facility] [address] [facility] [id number] [address] [place] [id number] Dec, Bipolar disorder, in partial remission, most recent episode hypomanic F31.71 ; Attention deficit hyperactivity disorder (ADHD), combined type F90.2 and Anxiety disorder, unspecified type F41.9 [facility] [address] [facility] [id number] [address] [place] [id number] Dec, Bipolar disorder, in partial remission, most recent episode hypomanic F31.71 ; Attention deficit hyperactivity disorder (ADHD), combined type F90.2 and Anxiety disorder, unspecified type F41.9 [facility] [address] [place] [id number] [address] [place] [id number] Dec, Bipolar 1 disorder F31.9 and Attention deficit R41.840 [facility] [address] [id number] [address] [place] [id number] Oct, Other chronic pain G89.29 ; Alopecia L65.9 and Screening, lipid Z13.220 [facility] [address] [id number] [address] [place] [id number] Oct, [facility] [address] [id number] [address] [place] [id number] Aug, [facility] [address] [facility] [id number] [address] [place] [id number] Aug, Eustachian tube dysfunction, right H69.81 ; Vertigo R42 and Other chronic pain G89.29 [facility] [address] [facility] [id number] [address] [place] [phone] Aug, [facility] [address] [id number] [address] [place] [id number] Jun, [facility] [address] [facility] [id number] [address] [place] [id number] Jun, Low back pain M54.5 and Othe r chronic pain G89.29 [facility] [address] [id number] [address] [place] [id number] Jun, [facility] [address] [id number] [address] [place] [id number] May, [facility] [address] [id number] [address] [place] [phone] Jan, [facility] [address] [facility] [id number] [address] [place] [phone] Dec, [facility] [address] [facility] [id number] [address] [place] [phone] Dec, [facility] [address] [facility] [id number] [address] [place] [phone] Jun, [facility] [address] [facility] [id number] [address] [place] [id number] Apr, Eustachian tube dysfunction, unspecified laterality H69.80 ; Hot flashes N95.1 and Encounter for immunization Z23 [facility] [address] [facility] [id number] [address] [place] [id number] Jan, [facility] [address] [place] [id number] [address] [place] [id number] Jan, [facility] [address] [place] [id number] [address] [place] [id number] Jan, [facility] [address] [place] [id number] [place] [address] Jan, [facility] [address] [id number] Jan, Encounter to establish care V65.8 ; Bipolar 1 disorder 296.7 ; Abdominal pain 789.00 ; Constipation 564.00 ; Hard of hearing 389.9 and Drug abuse 305.90 [facility] [address] [place] [id number] [place] [address] Dec, [facility] [address] [place] [id number] [address] [place] [id number] October, [facility] [address] [place] [place] [id number] [address] [place] [phone] October, [facility] [address] [facility] [id number] [address] [place] [id number] Oct, [facility] [address] [place] [id number] [place] [address] Oct, [facility] [address] [place] [id number] [address] [place] [phone] Oct, [facility] [address] [place] [id number] [address] [place] [id number] Aug, [facility] [address] [id number] [address] [place] [address], [place] [address] Aug, [facility] [address] [id number] [address] [place] [address], [place] [address] Aug, [facility] [address] [id number] [address] [place] [address], [place] [address] Aug, 2014 [facility] [address] [id number] [address] [place] [address], [place] [address] Aug, 2014 [facility] [address] [id number] [address] [place] [address], [place] [address] Aug, 2014 [facility] [address] [id number] [address] [place] [address], [place] [address] Aug, 2014 [facility] [address] [id number] [address] [place] [address], [place] [address] Aug, 2014 [facility] [address] [id number] [address] [place] [address], [place] [address] Aug, 2014 [facility] [address] [id number] [address] [place] [address], [place] [address] Aug, 2014 [facility] [address] [id number] [address] [place] [address], [place] [address] Aug, 2014 [facility] [address] [id number] [address] [place] [address], [place] [address] Aug, 2014 [facility] [address] [id number] [address] [place] [address], [place] [address] Aug, 2014 [facility] [address] [id number] [address] [place] [address], [place] [address] Aug, 2014 [facility] [address] [id number] [address] [place] [address], [place] [address] Aug, 2014 [facility] [address] [id number] [address] [place] [address], [place] [address] Jul, [facility] [address] [id number] [address] [place] [address], [place] [address] Jul, [facility] [address] [id number] [address] [place] [address], [place] [address] Jul, [facility] [address] [id number] [address] [place] [address], [place] [address] Jul, [facility] [address] [id number] [address] [place] [address], [place] [address] Jul, [facility] [address] [id number] [address] [place] [address], [place] [address] Jul, [facility] [address] [id number] [address] [place] [address], [place] [address] Jul, [facility] [address] [id number] [address] [place] [address], [place] [address] Jul, [facility] [address] [id number] [address] [place] [address], [place] [address] Jun, [facility] [address] [id number] [address] [place] [address], [place] [address] Jun, [facility] [address] [id number] [address] [place] [address], [place] [address] Jun, [facility] [address] [id number] [address] [place] [address], [place] [address] 29 Jun, 2014 [facility] [address] [id number] [address] [place] [address], [place] [address] 18 Jun, 2014 [facility] [address] [id number] [address] [place] [address], [place] [address] 15 Jun, 2014 [facility] [address] [id number] [address] [place] [address], [place] [address] 15 Jun, 2014 [facility] [address] [id number] [address] [place] [address], [place] [address] Jun, [facility] [address] [id number] [address] [place] [address] [address] Jun, [facility] [address] [id number] [address] [place] [address], [place] [address] Jun, [facility] [address] [id number] [address] [place] [address], [place] [address] Jun, [facility] [address] [id number] [address] [place] [address], [place] [address] May, [facility] [address] [id number] [address] [place] [address], [place] [address] May, [facility] [address] [id number] [address] [place] [address], [place] [address] May, [facility] [address] [id number] [address] [place] [address], [place] [address] May, [facility] [address] [id number] [address] [place] [address], [place] [address] May, [facility] [address] [id number] [address] [place] [address], [place] [address] May, [facility] [address] [id number] [address] [place] [address], [place] [address] May, [facility] [address] [id number] [address] [place] [address], [place] [address] Apr, [facility] [address] [id number] [address] [place] [address], [place] [address] Apr, [facility] [address] [id number] [address] [place] [id number] Apr, [facility] [address] [id number] [address] [place] [address], [place] [address] Apr, [facility] [address] [id number] [address] [place] [address], [place] [address] Apr, [facility] [address] [id number] [address] [place] [address], [place] [address] Apr, [facility] [address] [id number] [address] [place] [address] 29 Mar, 2013 [facility] [address] [id number] [address] [place] [address], [place] [address] 29 Mar, 2013 [facility] [address] [id number] [address] [place] [address], [place] [address] Mar, [facility] [address] [id number] [address] [place] [address], [place] [address] Mar, [facility] [address] [id number] [address] [place] [address], [place] [address] Mar, [facility] [address] [id number] [address] [place] [address], [place] [address] Mar, [facility] [address] [id number] [address] [place] [address], [place] [address] Jan, [facility] [address] [id number] [address] [place] [address], [place] [address] Jan, [facility] [address] [id number] [address] [place] [address], [place] [address] Jan, [facility] [address] [id number] [address] [place] [address], [place] [address] Jan, [facility] [address] [id number] [address] [place] [address], [place] [address] Dec, [facility] [address] [id number] [address] [place] [address], [place] [address] Dec, [facility] [address] [id number] [address] [place] [address], [place] [address] Dec, [facility] [address] [id number] [address] [place] [address], [place] [address] Dec, [facility] [address] [id number] [address] [place] [address], [place] [address] Dec, [facility] [address] [id number] [address] [place] [address], [place] [address] Dec, [facility] [address] [id number] [address] [place] [address], [place] [address] Dec, [facility] [address] [id number] [address] [place] [address], [place] [address] Dec, [facility] [address] [id number] [address] [place] [address], [place] [address] Dec, [facility] [address] [id number] [address] [place] [address], [place] [address] Dec, [facility] [address] [id number] [address] [place] [address], [place] [address] Dec, [facility] [address] [id number] [address] [place] [address], [place] [address] Dec, [facility] [address] [id number] [address] [place] [address], [place] [address] October, [facility] [address] [id number] [address] [place] [address], [place] [address] October, [facility] [address] [id number] [address] [place] [address], [place] [address] October, [facility] [address] [id number] [address] [place] [address], [place] [address] October, [facility] [address] [id number] [address] [place] [address], [place] [address] October, [facility] [address] [id number] [address] [place] [address], [place] [address] October, [facility] [address] [id number] [address] [place] [address], [place] [address] Oct, [facility] [address] [id number] [address] [place] [address], [place] [address] Oct, [facility] [address] [id number] [address] [place] [address], [place] [address] Oct, [facility] [address] [id number] [address] [place] [address], [place] [address] Oct, [facility] [address] [id number] [address] [place] [address] Oct, [facility] [address] [id number] [address] [place] [address], [place] [address] Oct, [facility] [address] [id number] [address] [place] [address], [place] [address] Oct, [facility] [address] [id number] [address] [place] [address], [place] [address] Oct, [facility] [address] [id number] [address] [place] [address], [place] [address] Oct, [facility] [address] [id number] [address] [place] [address], [place] [id number] Oct, [facility] [address] [id number] [address] [place] [address], [place] [id number] Oct, [facility] [address] [id number] [address] [place] [address], [place] [address] Oct, [facility] [address] [id number] [address] [place] [address], [place] [address] Aug, [facility] [address] [id number] [address] [place] [address], [place] [address] Aug, [facility] [address] [id number] [address] [place] [address], [place] [address] Aug, [facility] [address] [id number] [address] [place] [address], [place] [address] Aug, [facility] [address] [id number] [address] [place] [address], [place] [address] 05 Aug, 2013 [facility] [address] [id number] [address] [place] [address], [place] [id number] 05 Aug, 2013 [facility] [address] [id number] [address] [place] [address], [place] [address] Aug, [facility] [address] [id number] [address] [place] [address], [place] [address] Aug, [facility] [address] [id number] [address] [place] [address], [place] [address] Aug, [facility] [address] [id number] [address] [place] [address], [place] [address] Aug, [facility] [address] [id number] [address] [place] [address], [place] [address] Aug, [facility] [address] [id number] [address] [place] [address], [place] [address] Aug, [facility] [address] [id number] [address] [place] [address], [place] [address] Aug, [facility] [address] [id number] [address] [place] [address], [place] [address] Aug, [facility] [address] [id number] [address] [place] [address], [place] [address] 14 Aug, 2013 [facility] [address] [id number] [address] [place] [address], [place] [address] Aug, [facility] [address] [id number] [address] [place] [address], [place] [address] Aug, [facility] [address] [id number] [address] [place] [address], [place] [address] Aug, [facility] [address] [id number] [address] [place] [address], [place] [address] Aug, [facility] [address] [id number] [address] [place] [address], [place] [id number] Aug, [facility] [address] [id number] [address] [place] [address], [place] [address] Aug, [facility] [address] [id number] [address] [place] [address], [place] [address] Aug, [facility] [address] [id number] [address] [place] [address], [place] [address] 04 Aug, 2013 [facility] [address] [id number] [address] [place] [address], [place] [address] Aug, [facility] [address] [id number] [address] [place] [address], [place] [address] Aug, [facility] [address] [id number] [address] [place] [address], [place] [address] Jul, [facility] [address] [id number] [address] [place] [address], [place] [address] Jul, [facility] [address] [id number] [address] [place] [address], [place] [address] Jul, [facility] [address] [id number] [address] [place] [address], [place] [address] Jul, [facility] [address] [id number] [address] [place] [address], [place] [address] Jul, [facility] [address] [id number] [address] [place] [address], [place] [address] Jul, [facility] [address] [id number] [address] [place] [address], [place] [address] Jul, [facility] [address] [id number] [address] [place] [address], [place] [address] Jul, [facility] [address] [id number] [address] [place] [address], [place] [address] Jul, [facility] [address] [id number] [address] [place] [address], [place] [address] Jul, [facility] [address] [id number] [address] [place] [address], [place] [address] Jul, [facility] [address] [id number] [address] [place] [address], [place] [address] Jul, [facility] [address] [id number] [address] [place] [address], [place] [address] Jul, [facility] [address] [id number] [address] [place] [address], [place] [address] Jul, [facility] [address] [id number] [address] [place] [address], [place] [address] Jul, [facility] [address] [id number] [address] [place] [address], [place] [address] Jul, [facility] [address] [id number] [address] [place] [address], [place] [address] Jul, [facility] [address] [id number] [address] [place] [address], [place] [address] Jul, [facility] [address] [id number] [address] [place] [address], [place] [address] Jul, [facility] [address] [id number] [address] [place] [address], [place] [address] Jul, [facility] [address] [id number] [address] [place] [address], [place] [address] Jun, [facility] [address] [id number] [address] [place] [address], [place] [address] Jun, [facility] [address] [id number] [address] [place] [address], [place] [address] Jun, [facility] [address] [id number] [address] [place] [address], [place] [address] Jun, [facility] [address] [id number] [address] [place] [address], [place] [address] Jun, [facility] [address] [id number] [address] [place] [address], [place] [address] Jun, [facility] [address] [id number] [address] [place] [address], [place] [address] Jun, [facility] [address] [id number] [address] [place] [address], [place] [address] Jun, [facility] [address] [id number] [address] [place] [address], [place] [address] Jun, [facility] [address] [id number] [address] [place] [address], [place] [address] Jun, [facility] [address] [id number] [address] [place] [address], [place] [address] Jun, [facility] [address] [id number] [address] [place] [address], [place] [address] Jun, [facility] [address] [id number] [address] [place] [address], [place] [address] Jun, [facility] [address] [id number] [address] [place] [address], [place] [address] Jun, [facility] [address] [id number] [address] [place] [address], [place] [address] Jun, [facility] [address] [id number] [address] [place] [address], [place] [address] 18 Jun, 2013 [facility] [address] [id number] [address] [place] [address], [place] [address] 18 Jun, 2013 [facility] [address] [id number] [address] [place] [address], [place] [address] 17 Jun, 2013 [facility] [address] [id number] [address] [place] [address], [place] [address] 17 Jun, 2013 [facility] [address] [id number] [address] [place] [address], [place] [address] 13 Jun, 2013 [facility] [address] [id number] [address] [place] [address], [place] [address] 12 Jun, 2013 [facility] [address] [id number] [address] [place] [address], [place] [address] 12 Jun, 2013 [facility] [address] [id number] [address] [place] [address], [place] [address] 09 Jun, 2013 [facility] [address] [id number] [address] [place] [address], [place] [address] 05 Jun, 2013 [facility] [address] [id number] [address] [place] [address], [place] [address] 05 Jun, 2013 [facility] [address] [id number] [address] [place] [address], [place] [address] Jun, [facility] [address] [id number] [address] [place] [address], [place] [address] Jun, [facility] [address] [id number] [address] [place] [address], [place] [address] May, [facility] [address] [id number] [address] [place] [address], [place] [address] May, [facility] [address] [id number] [address] [place] [address], [place] [address] May, [facility] [address] [id number] [address] [place] [address], [place] [address] May, [facility] [address] [id number] [address] [place] [address], [place] [address] May, [facility] [address] [id number] [address] [place] [address], [place] [address] May, [facility] [address] [id number] [address] [place] [address], [place] [address] Apr, [facility] [address] [id number] [address] [place] [address], [place] [address] Apr, [facility] [address] [id number] [address] [place] [address], [place] [address] 30 Apr, 2013 [facility] [address] [id number] [address] [place] [address], [place] [address] 30 Apr, 2013 [facility] [address] [id number] [address] [place] [address], [place] [address] Apr, [facility] [address] [id number] [address] [place] [address], [place] [address] 15 Apr, 2013 [facility] [address] [id number] [address] [place] [address], [place] [address] Apr, [facility] [address] [id number] [address] [place] [address], [place] [address] Apr, [facility] [address] [id number] [address] [place] [address], [place] [address] 26 Mar, 2012 [facility] [address] [id number] [address] [place] [address], [place] [address] 24 Mar, 2012 [facility] [address] [id number] [address] [place] [address], [place] [address] 17 Mar, 2012 [facility] [address] [id number] [address] [place] [address], [place] [address] 17 Mar, 2012 [facility] [address] [id number] [address] [place] [address], [place] [address] 11 Mar, 2013 [facility] [address] [id number] [address] [place] [address], [place] [address] 10 Mar, 2013 [facility] [address] [id number] [address] [place] [address], [place] [address] 05 Mar, 2013 [facility] [address] [id number] [address] [place] [address], [place] [address] 04 Mar, 2013 [facility] [address] [id number] [address] [place] [address], [place] [address] 20 Jan, 2013 [facility] [address] [id number] [address] [place] [address], [place] [address] Jan, [facility] [address] [id number] [address] [place] [address], [place] [address] 14 Jan, 2013 [facility] [address] [id number] [address] [place] [address], [place] [address] Jan, [facility] [address] [id number] [address] [place] [address], [place] [address] Jan, [facility] [address] [id number] [address] [place] [address], [place] [address] 05 Jan, 2013 [facility] [address] [id number] [address] [place] [address] 31 Dec, 2012 [facility] [address] [id number] [facility] [place] [address] 24 Dec, 2012 [facility] [address] [id number] [address] [place] [address], [place] [address] 22 Dec, 2012 [facility] [address] [id number] [address] [place] [address], [place] [address] 19 Dec, 2012 [facility] [address] [id number] [address] [place] [address], [place] [address] 18 Dec, 2012 [facility] [address] [id number] [address] [place] [address], [place] [address] 17 Dec, 2012 [facility] [address] [id number] [address] [place] [address], [place] [address] 16 Dec, 2012 [facility] [address] [id number] [address] [place] [address], [place] [address] 16 Dec, 2012 [facility] [address] [id number] [address] [place] [address], [place] [address] 15 Dec, 2012 [facility] [address] [id number] [address] [place] [address], [place] [address] 10 Dec, 2012 [facility] [address] [id number] [address] [place] [address], [place] [address] 28 Dec, 2012 [facility] [address] [id number] [address] [place] [address], [place] [address] 25 Dec, 2012 [facility] [address] [id number] [address] [place] [address], [place] [address] 19 Dec, 2012 [facility] [address] [id number] [address] [place] [address], [place] [address] 17 Dec, 2012 [facility] [address] [id number] [address] [place] [address], [place] [address] 13 Dec, 2012 [facility] [address] [id number] [address] [place] [address], [place] [address] 11 Dec, 2012 [facility] [address] [id number] [address] [place] [address], [place] [address] October, [facility] [address] [id number] [address] [place] [address], [place] [address] October, [facility] [address] [id number] [address] [place] [address], [place] [address] October, [facility] [address] [id number] [address] [place] [address], [place] [address] October, [facility] [address] [id number] [address] [place] [address], [place] [address] October, [facility] [address] [id number] [address] [place] [address], [place] [address] October, [facility] [address] [id number] [address] [place] [address], [place] [address] October, [facility] [address] [id number] [address] [place] [address], [place] [address] Oct, [facility] [address] [id number] [address] [place] [address], [place] [address] Oct, [facility] [address] [id number] [address] [place] [address], [place] [address] 24 Oct, 2012 [facility] [address] [id number] [address] [place] [address], [place] [address] Oct, [facility] [address] [id number] [address] [place] [address], [place] [address] Oct, [facility] [address] [id number] [address] [place] [address], [place] [address] 18 Oct, 2012 [facility] [address] [id number] [address] [place] [address], [place] [address] 17 Oct, 2012 [facility] [address] [id number] [address] [place] [address], [place] [address] 15 Oct, 2012 [facility] [address] [id number] [address] [place] [address] [address] Oct, [facility] [address] [id number] [address] [place] [address], [place] [address] Oct, [facility] [address] [id number] [address] [place] [address], [place] [address] Oct, [facility] [address] [id number] [address] [place] [address], [place] [address] Oct, [facility] [address] [id number] [address] [place] [address], [place] [address] Aug, [facility] [address] [id number] [address] [place] [address], [place] [address] Aug, [facility] [address] [id number] [address] [place] [address], [place] [address] Aug, [facility] [address] [id number] [address] [place] [address], [place] [address] Aug, [facility] [address] [id number] [address] [place] [address], [place] [address] Aug, [facility] [address] [id number] [address] [place] [address], [place] [address] Aug, [facility] [address] [id number] [address] [place] [address], [place] [address] Aug, [facility] [address] [id number] [address] [place] [address], [place] [address] 14 Aug, 2012 [facility] [address] [id number] [address] [place] [address], [place] [address] Aug, [facility] [address] [id number] [address] [place] [address], [place] [address] Aug, [facility] [address] [id number] [address] [place] [address], [place] [address] 29 Jul, 2012 [facility] [address] [id number] [address] [place] [address], [place] [address] 15 Jul, 2012 [facility] [address] [id number] [address] [place] [address], [place] [address] 08 Jul, 2012 [facility] [address] [id number] [address] [place] [address], [place] [address] 20 Jun, 2012 [facility] [address] [id number] [address] [place] [address], [place] [address] 18 Jun, 2012 [facility] [address] [id number] [address] [place] [address], [place] [address] 18 Jun, 2012 [facility] [address] [id number] [address] [place] [address], [place] [address] 18 Jun, 2012 [facility] [address] [id number] [address] [place] [address], [place] [address] 18 Jun, 2012 [facility] [address] [id number] [address] [place] [address], [place] [address] 14 Jun, 2012 [facility] [address] [id number] [address] [place] [address], [place] [address] 14 Jun, 2012 [facility] [address] [id number] [address] [place] [address], [place] [address] 13 Jun, 2012 [facility] [address] [id number] [address] [place] [address], [place] [address] 13 Jun, 2012 [facility] [address] [id number] [address] [place] [address], [place] [address] 11 Jun, 2012 [facility] [address] [id number] [address] [place] [address], [place] [address] 11 Jun, 2012 [facility] [address] [id number] [address] [place] [address], [place] [address] 11 Jun, 2012 [facility] [address] [id number] [address] [place] [address], [place] [address] 11 Jun, 2012 [facility] [address] [id number] [address] [place] [address], [place] [address] 07 Jun, 2012 [facility] [address] [id number] [address] [place] [address], [place] [address] Jun, [facility] [address] [id number] [address] [place] [address], [place] [address] Jun, [facility] [address] [id number] [address] [place] [address], [place] [address] Jun, [facility] [address] [id number] [address] [place] [address], [place] [address] Jun, [facility] [address] [id number] [address] [place] [address], [place] [address] Jun, [facility] [address] [id number] [address] [place] [address], [place] [address] Jun, [facility] [address] [id number] [address] [place] [address], [place] [address] Jun, [facility] [address] [id number] [address] [place] [address], [place] [address] Jun, [facility] [address] [id number] [address] [place] [address], [place] [address] Jun, [facility] [address] [id number] [address] [place] [address], [place] [address] May, [facility] [address] [id number] [address] [place] [address], [place] [address] May, [facility] [address] [id number] [address] [place] [address], [place] [address] May, [facility] [address] [id number] [address] [place] [address] May, [facility] [address] [id number] [address] [place] [address], [place] [address] May, [facility] [address] [id number] [address] [place] [address], [place] [address] May, [facility] [address] [id number] [address] [place] [address], [place] [id number] May, [facility] [address] [id number] [address] [place] [id number] 06 May, 2012 [facility] [address] [id number] [address] [place] [address], [place] [address] 30 Apr, 2012 [facility] [address] [id number] [address] [place] [id number] 30 Apr, 2012 [facility] [address] [id number] [address] [place] [address], [place] [address] 29 Apr, 2012 [facility] [address] [id number] [address] [place] [address], [place] [id number] 16 Apr, 2012 [facility] [address] [id number] [address] [place] [address], [place] [address] Apr, [facility] [address] [id number] [address] [place] [address], [place] [id number] Apr, [facility] [address] [id number] [address] [place] [id number] Apr, [facility] [address] [id number] [address] [place] [address], [place] [id number] Apr, [facility] [address] [id number] [address] [place] [address], [place] [id number] 09 Apr, 2012 [facility] [address] [id number] [address] [place] [id number] 08 Apr, 2012 [facility] [address] [id number] [address] [place] [id number] 04 Apr, 2012 [facility] [address] [id number] [address] [place] [id number] 02 Apr, 2012 [facility] [address] [id number] [address] [place] [id number] 19 Mar, 2012 [facility] [address] [id number] [address] [place] [id number] 18 Mar, 2012 [facility] [address] [id number] [address] [place] [id number] 12 Mar, 2012 [facility] [address] [id number] [address] [place] [address], [place] [id number] Mar, [facility] [address] [id number] [address] [place] [address], [place] [id number] Mar, [facility] [address] [id number] [address] [place] [address], [place] [id number] Mar, [facility] [address] [id number] [address] [place] [address], [place] [id number] Mar, [facility] [address] [id number] [address] [place] [address], [place] [id number] Jan, [facility] [address] [id number] [address] [place] [address], [place] [id number] Jan, [facility] [address] [id number] [address] [place] [address], [place] [id number] Jan, [facility] [address] [id number] [address] [place] [address], [place] [id number] Jan, [facility] [address] [id number] [address] [place] [address], [place] [id number] Jan, [facility] [address] [id number] [address] [place] [address], [place] [id number] Jan, [facility] [address] [id number] [address] [place] [address], [place] [id number] Jan, [facility] [address] [id number] [address] [place] [address], [place] [id number] Jan, [facility] [address] [id number] [address] [place] [address], [place] [id number] Jan, [facility] [address] [id number] [address] [place] [address], [place] [id number] Jan, [facility] [address] [id number] [address] [place] [address], [place] [id number] Jan, [facility] [address] [id number] [address] [place] [address], [place] [id number] Dec, [facility] [address] [id number] [address] [place] [address], [place] [id number] 27 Jan, 2012 [facility] [address] [id number] [address] [place] [address], [place] [id number] Dec, [facility] [address] [id number] [address] [place] [address], [place] [id number] 26 Jan, 2012 [facility] [address] [id number] [address] [place] [address], [place] [id number] 20 Jan, 2012 [facility] [address] [id number] [address] [place] [address], [place] [id number] 19 Jan, 2012 [facility] [address] [id number] [address] [place] [address], [place] [id number] 18 Jan, 2012 [facility] [address] [id number] [address] [place] [address], [place] [id number] 17 Jan, 2012 [facility] [address] [id number] [address] [place] [address], [place] [id number] 16 Jan, 2012 [facility] [address] [id number] [address] [place] [address], [place] [id number] Dec, [facility] [address] [id number] [address] [place] [address], [place] [id number] Dec, [facility] [address] [id number] [address] [place] [address], [place] [address] Dec, [facility] [address] [id number] [address] [place] [address], [place] [id number] Dec, [facility] [address] [id number] [address] [place] [address], [place] [id number] Dec, [facility] [address] [id number] [address] [place] [address], [place] [id number] Dec, [facility] [address] [id number] [address] [place] [address], [place] [address] Dec, [facility] [address] [id number] [address] [place] [address], [place] [id number] Dec, [facility] [address] [id number] [address] [place] [address], [place] [id number] Dec, [facility] [address] [id number] [address] [place] [address], [place] [id number] Dec, [facility] [address] [id number] [address] [place] [address], [place] [id number] October, [facility] [address] [id number] [address] [place] [address], [place] [id number] October, [facility] [address] [id number] [address] [place] [address], [place] [id number] October, [facility] [address] [id number] [address] [place] [address], [place] [address] October, [facility] [address] [id number] [address] [place] [address], [place] [id number] October, [facility] [address] [id number] [address] [place] [address], [place] [address] October, [facility] [address] [id number] [address] [place] [address], [place] [address] Oct, [facility] [address] [id number] [address] [place] [address], [place] [id number] Oct, [facility] [address] [id number] [address] [place] [address], [place] [address] Oct, [facility] [address] [id number] [address] [place] [address], [place] [id number] Oct, [facility] [address] [id number] [address] [place] [address], [place] [id number] Oct, [facility] [address] [id number] [address] [place] [address], [place] [address] Oct, [facility] [address] [id number] [address] [place] [address], [place] [address] Oct, [facility] [address] [id number] [address] [place] [address] 29 Sep, 2011 [facility] [address] [id number] [address] [place] [address], [place] [address] 29 Sep, 2011 [facility] [address] [id number] [address] [place] [address], [place] [id number] 19 Sep, 2011 [facility] [address] [id number] [address] [place] [address], [place] [id number] 13 Sep, 2011 [facility] [address] [id number] [address] [place] [address], [place] [id number] 05 Sep, 2011 [facility] [address] [id number] [address] [place] [address], [place] [id number] 05 Sep, 2011 [facility] [address] [id number] [address] [place] [address], [place] [id number] 27 Aug, 2011 [facility] [address] [id number] [address] [place] [address], [place] [id number] 20 Aug, 2011 [facility] [address] [id number] [address] [place] [address], [place] [id number] 08 Aug, 2011 [facility] [address] [id number] [address] [place] [address], [place] [id number] Jul, [facility] [address] [id number] [address] [place] [address], [place] [address] Jul, [facility] [address] [id number] [address] [place] [address], [place] [address] Jul, [facility] [address] [id number] [address] [place] [address], [place] [address] Jul, [facility] [address] [id number] [address] [place] [address], [place] [address] Jun, [facility] [address] [id number] [address] [place] [address], [place] [address] Jun, [facility] [address] [id number] [address] [address] May, [facility] [address] [id number] [address] [place] [phone] May, [facility] [address] [id number] [address] [place] [phone] May, [facility] [address] [id number] [address] [place] [phone] May, [facility] [address] [id number] [address] [place] [phone] May, [facility] [address] [id number] [address] [place] [phone] Apr, [facility] [address] [id number] [address] [place] [id number] Apr, [facility] [address] [id number] [address] [place] [id number] Apr, [facility] [address] [id number] [address] [place] [id number] Jan, [facility] [address] [id number] [address] [place] [phone] Dec, [facility] [address] [id number] [address] [place] [id number] October, [facility] [address] [id number] [address] [place] [phone] Jun, [facility] [address] [id number] [address] [place] [phone] Apr, [facility] [address] [id number] [address] [place] [id number] Apr, [facility] [address] [id number] [address] [place] [id number] Apr, [facility] [address] [id number] [address] [place] [phone] Jun, IMMUNIZATIONS No Known Immunizations SOCIAL HISTORY Never Assessed REASON FOR VISIT adderall 01/24/2018 PLAN OF CARE VITAL SIGNS MEDICATIONS Medication Instructions Dosage Frequency Start Date End Date Duration Cris vazquez Adderall 10 mg Orally 3 times a day 1 tablet 8h Dec, 28 days Active RESULTS No Results PROCEDURES No Known procedures INSTRUCTIONS MEDICATIONS ADMINISTERED No Known Medications MEDICAL (GENERAL) HISTORY Type Description Date Medical History Psychiatric disorder Medical History Hard of hearing Surgical History Neofibrous tumor Surgical History back injection Hospitalization History Intestinal blockage Hospitalization History past psychiatric hospitalizations x2
--- OUTSIDE RECORDS SUMMARY | 2020-01-25 13:11 | XMS REPORT ---
Author Author Ana ESCAMILLAYEN [facility] Address [address] [place] [address] Care Team Providers Care Purification Operator Name Role Phone FRANCINE, KWAME Unavailable PROBLEMS Type Condition ICD9-CM Code [id number] Code Onset Dates Condition S tatus SNOMED Code Problem Attention deficit R41.840 Active 76 051355 Problem Cannabis abuse F12.10 Active 50027 009 Problem Chronic hepatitis C without hepatic coma B18.2 Active 791313146 Problem Attention deficit hyperactivity disorder (ADHD), combi luciano type F90.2 Active 39273829 Problem Bipolar disorder, in partial remission, most rec ent episode hypomanic F31.71 Active 632029860 Problem H/O laminectomy Z98.89 Active 1616 40307 Problem Bipolar 1 disorder F31.9 Active 3 86249440 Problem Anxiety disorder, unspecified type F41.9 Active 948105903 Problem Other chronic pain G89.29 Active 8 [id number] ALLERGIES No Information ENCOUNTERS Encounter Location Date Diagnosis [facility] [address] [facility] [id number] [address] [place] [id number] Apr, [facility] [address] [facility] [id number] [address] [place] [address] Mar, [facility] [address] [facility] [id number] [address] [place] [address] Jan, Bipolar disorder, in partial remission, most recent episode hypomanic F31.71 [facility] [address] [facility] [id number] [address] [place] [address] Jan, Bipolar disorder, in partial remission, most recent episode hypomanic F31.71 [facility] [address] [facility] [id number] [address] [place] [address] Dec, Bipolar disorder, in partial remission, most recent episode hypomanic F31.71 [facility] [address] [id number] [address] [place] [address] Dec, Bipolar disorder, in partial remission, most recent episode hypomanic F31.71 ; Attention deficit hyperactivity disorder (ADHD), combined type F90.2 ; Anxiety disorder, unspecified type F41.9 and Other meterman (current) drug therapy Z79.899 [facility] [address] [id number] [address] [place] [phone] Dec, Bipolar disorder, in partial remission, most recent episode hypomanic F31.71 [facility] [address] [id number] [address] [place] [address] Dec, Bipolar disorder, in partial remission, most recent episode hypomanic F31.71 [facility] [address] [id number] [address] [place] [address] October, Bipolar disorder, in partial remission, most recent episode hypomanic F31.71 [facility] [address] [id number] [address] [place] [address] October, [facility] [address] [id number] [address] [place] [address] October, [facility] [address] [id number] [address] [place] [address] Oct, Bipolar disorder, in partial remission, most recent episode hypomanic F31.71 ; Attention deficit hyperactivity disorder (ADHD), combined type F90.2 ; Anxiety disorder, unspecified type F41.9 and Encounter for drug screening Z02.83 [facility] [address] [id number] [address] [place] [address] Oct, Bipolar disorder, in partial remission, most recent episode hypomanic F31.71 [facility] [address] [id number] [address] [place] [address] Oct, Bipolar disorder, in partial remission, most recent episode hypomanic F31.71 [facility] [address] [id number] [address] [place] [address] Aug, Bipolar disorder, in partial remission, most recent episode hypomanic F31.71 [facility] [address] [facility] [id number] [address] [place] [address] Aug, Bipolar disorder, in partial remission, most recent episode hypomanic F31.71 [facility] [address] [facility] [id number] [address] [place] [address] Aug, Bipolar disorder, in partial remission, most recent episode hypomanic F31.71 [facility] [address] [id number] [address] [place] [address] Jul, Bipolar disorder, in partial remission, most recent episode hypomanic F31.71 ; Attention deficit hyperactivity disorder (ADHD), combined type F90.2 and Anxiety disorder, unspecified type F41.9 [facility] [address] [facility] [id number] [address] [place] [address] Jul, Bipolar disorder, in partial remission, most recent episode hypomanic F31.71 [facility] [address] [id number] [address] [place] [address] Jun, Bipolar disorder, in partial remission, most recent episode hypomanic F31.71 [facility] [address] [facility] [id number] [address] [place] [phone] May, Bipolar disorder, in partial remission, most recent episode hypomanic F31.71 [facility] [address] [facility] [id number] [address] [place] [address] May, Bipolar disorder, in partial remission, most recent episode hypomanic F31.71 [facility] [address] [facility] [id number] [address] [place] [address] Apr, [facility] [address] [facility] [id number] [address] [place] [address] Apr, Bipolar disorder, in partial remission, most recent episode hypomanic F31.71 ; Attention deficit hyperactivity disorder (ADHD), combined type F90.2 ; Anxiety disorder, unspecified type F41.9 and Cannabis abuse F12.10 [facility] [address] [facility] [id number] [address] [place] [address] 13 Apr, 2017 Attention deficit hyperactiv ity disorder (ADHD), combined type F90.2 [facility] [address] [facility] [id number] [address] [place] [address] Mar, Attention deficit hyperactiv ity disorder (ADHD), combined type F90.2 [facility] [address] [facility] [id number] [address] [place] [id number] 14 Mar, 2017 Anxiety disorder, unspecifie d type F41.9 [facility] [address] [facility] [id number] [address] [place] [address] Jan, Attention deficit hyperactiv ity disorder (ADHD), combined type F90.2 [facility] [address] [facility] [id number] [address] [place] [address] Jan, Anxiety disorder, unspecifie d type F41.9 [facility] [address] [facility] [id number] [address] [place] [address] Jan, Other chronic pain G89.29 ; Chronic hepatitis C without hepatic coma B18.2 and Bipolar [address] [facility] [address] [facility] [id number] [address] [place] [address] Dec, Attention deficit hyperactiv ity disorder (ADHD), combined type F90.2 [facility] [address] [facility] [id number] [address] [place] [address] Dec, Bipolar disorder, in partial remission, most recent episode hypomanic F31.71 ; Attention deficit hyperactivity disorder (ADHD), combined type F90.2 and Anxiety disorder, unspecified type F41.9 [facility] [address] [facility] [id number] [address] [place] [address] Dec, Bipolar disorder, in partial remission, most recent episode hypomanic F31.71 ; Attention deficit hyperactivity disorder (ADHD), combined type F90.2 and Anxiety disorder, unspecified type F41.9 [facility] [address] [place] [id number] [address] [place] [address] Dec, Bipolar 1 disorder F31.9 and Attention deficit R41.840 [facility] [address] [id number] [address] [place] [address] Oct, Other chronic pain G89.29 ; Alopecia L65.9 and Screening, lipid Z13.220 [facility] [address] [id number] [address] [place] [address] Oct, [facility] [address] [id number] [address] [place] [address] Aug, [facility] [address] [facility] [id number] [address] [place] [address] Aug, Eustachian tube dysfunction, right H69.81 ; Vertigo R42 and Other chronic pain G89.29 [facility] [address] [facility] [id number] [address] [place] [address] Aug, [facility] [address] [id number] [address] [place] [address] Jun, [facility] [address] [facility] [id number] [address] [place] [address] Jun, Low back pain M54.5 and Othe r chronic pain G89.29 [facility] [address] [id number] [address] [place] [address] Jun, [facility] [address] [id number] [address] [place] [address] May, [facility] [address] [id number] [address] [place] [address] Jan, [facility] [address] [facility] [id number] [address] [place] [phone] Dec, [facility] [address] [facility] [id number] [address] [place] [phone] Dec, [facility] [address] [facility] [id number] [address] [place] [address] Jun, [facility] [address] [facility] [id number] [address] [place] [address] Apr, Eustachian tube dysfunction, unspecified laterality H69.80 ; Hot flashes N95.1 and Encounter for immunization Z23 [facility] [address] [facility] [id number] [address] [place] [address] Jan, [facility] [address] [place] [id number] [address] [place] [address] Jan, [facility] [address] [place] [id number] [address] [place] [address] Jan, [facility] [address] [place] [id number] [place] [address] Jan, [facility] [address] [address] Jan, Encounter to establish care V65.8 ; Bipolar 1 disorder 296.7 ; Abdominal pain 789.00 ; Constipation 564.00 ; Hard of hearing 389.[address] [facility] [address] [place] [id number] [place] [address] Dec, [facility] [address] [place] [id number] [address] [place] [address] October, [facility] [address] [place] [id number] [address] [place] [address] October, [facility] [address] [facility] [id number] [address] [place] [phone] Oct, [facility] [address] [place] [id number] [place] [address] Oct, [facility] [address] [place] [id number] [address] [place] [address] Oct, [facility] [address] [place] [id number] [address] [place] [phone] Aug, [facility] [address] [id number] [address] [place] [address], [place] [address] Aug, [facility] [address] [id number] [address] [place] [address], [place] [address] Aug, [facility] [address] [id number] [address] [place] [address], [place] [address] Aug, 2014 [facility] [address] [id number] [address] [place] [address], [place] [address] Aug, 2014 [facility] [address] [id number] [address] [place] [address], [place] [address] Aug, 2014 [facility] [address] [id number] [address] [place] [address], [place] [address] Aug, 2014 [facility] [address] [id number] [address] [place] [address], [place] [address] Aug, 2014 [facility] [address] [id number] [address] [place] [address], [place] [address] Aug, 2014 [facility] [address] [id number] [address] [place] [address], [place] [address] Aug, 2014 [facility] [address] [id number] [address] [place] [address], [place] [address] Aug, 2014 [facility] [address] [id number] [address] [place] [address], [place] [address] Aug, 2014 [facility] [address] [id number] [address] [place] [address], [place] [address] Aug, 2014 [facility] [address] [id number] [address] [place] [address], [place] [address] Aug, 2014 [facility] [address] [id number] [address] [place] [address], [place] [address] Aug, 2014 [facility] [address] [id number] [address] [place] [address], [place] [address] Jul, [facility] [address] [id number] [address] [place] [address], [place] [address] Jul, [facility] [address] [id number] [address] [place] [address], [place] [address] Jul, [facility] [address] [id number] [address] [place] [address], [place] [address] Jul, [facility] [address] [id number] [address] [place] [address], [place] [address] Jul, [facility] [address] [id number] [address] [place] [address], [place] [address] Jul, [facility] [address] [id number] [address] [place] [address], [place] [address] Jul, [facility] [address] [id number] [address] [place] [address], [place] [address] Jul, [facility] [address] [id number] [address] [place] [address], [place] [address] Jun, [facility] [address] [id number] [address] [place] [address], [place] [address] Jun, [facility] [address] [id number] [address] [place] [address], [place] [address] Jun, [facility] [address] [id number] [address] [place] [address], [place] [address] 29 Jun, 2014 [facility] [address] [id number] [address] [place] [address], [place] [address] 18 Jun, 2014 [facility] [address] [id number] [address] [place] [address], [place] [address] 15 Jun, 2014 [facility] [address] [id number] [address] [place] [address], [place] [address] 15 Jun, 2014 [facility] [address] [id number] [address] [place] [address], [place] [address] Jun, [facility] [address] [id number] [address] [place] [address] [address] Jun, [facility] [address] [id number] [address] [place] [address], [place] [address] Jun, [facility] [address] [id number] [address] [place] [address], [place] [address] Jun, [facility] [address] [id number] [address] [place] [address], [place] [address] May, [facility] [address] [id number] [address] [place] [address], [place] [address] May, [facility] [address] [id number] [address] [place] [address], [place] [address] May, [facility] [address] [id number] [address] [place] [address], [place] [address] May, [facility] [address] [id number] [address] [place] [address], [place] [address] May, [facility] [address] [id number] [address] [place] [address], [place] [address] May, [facility] [address] [id number] [address] [place] [address], [place] [address] May, [facility] [address] [id number] [address] [place] [address], [place] [address] Apr, [facility] [address] [id number] [address] [place] [address], [place] [address] Apr, [facility] [address] [id number] [address] [place] [address] Apr, [facility] [address] [id number] [address] [place] [address], [place] [address] Apr, [facility] [address] [id number] [address] [place] [address], [place] [address] Apr, [facility] [address] [id number] [address] [place] [address], [place] [address] Apr, [facility] [address] [id number] [facility] [address] 29 Mar, 2013 [facility] [address] [id number] [address] [place] [address], [place] [address] 29 Mar, 2013 [facility] [address] [id number] [address] [place] [address], [place] [address] Mar, [facility] [address] [id number] [address] [place] [address], [place] [address] Mar, [facility] [address] [id number] [address] [place] [address], [place] [address] Mar, [facility] [address] [id number] [address] [place] [address], [place] [address] Mar, [facility] [address] [id number] [address] [place] [address], [place] [address] Jan, [facility] [address] [id number] [address] [place] [address], [place] [address] Jan, [facility] [address] [id number] [address] [place] [address], [place] [address] Jan, [facility] [address] [id number] [address] [place] [address], [place] [address] Jan, [facility] [address] [id number] [address] [place] [address], [place] [address] Dec, [facility] [address] [id number] [address] [place] [address], [place] [address] Dec, [facility] [address] [id number] [address] [place] [address], [place] [address] Dec, [facility] [address] [id number] [address] [place] [address], [place] [address] Dec, [facility] [address] [id number] [address] [place] [address], [place] [address] Dec, [facility] [address] [id number] [address] [place] [address], [place] [address] Dec, [facility] [address] [id number] [address] [place] [address], [place] [address] Dec, [facility] [address] [id number] [address] [place] [address], [place] [address] Dec, [facility] [address] [id number] [address] [place] [address], [place] [address] Dec, [facility] [address] [id number] [address] [place] [address], [place] [address] Dec, [facility] [address] [id number] [address] [place] [address], [place] [address] Dec, [facility] [address] [id number] [address] [place] [address], [place] [address] Dec, [facility] [address] [id number] [address] [place] [address], [place] [address] October, [facility] [address] [id number] [address] [place] [address], [place] [address] October, [facility] [address] [id number] [address] [place] [address], [place] [address] October, [facility] [address] [id number] [address] [place] [address], [place] [address] October, [facility] [address] [id number] [address] [place] [address], [place] [address] October, [facility] [address] [id number] [address] [place] [address], [place] [address] October, [facility] [address] [id number] [address] [place] [address], [place] [address] Oct, [facility] [address] [id number] [address] [place] [address], [place] [address] Oct, [facility] [address] [id number] [address] [place] [address], [place] [address] Oct, [facility] [address] [id number] [address] [place] [address], [place] [address] Oct, [facility] [address] [id number] [facility] [address] Oct, [facility] [address] [id number] [address] [place] [address], [place] [address] Oct, [facility] [address] [id number] [address] [place] [address], [place] [address] Oct, [facility] [address] [id number] [address] [place] [address], [place] [address] Oct, [facility] [address] [id number] [address] [place] [address], [place] [address] Oct, [facility] [address] [id number] [address] [place] [address], [place] [address] Oct, [facility] [address] [id number] [address] [place] [address], [place] [address] Oct, [facility] [address] [id number] [address] [place] [address], [place] [address] Oct, [facility] [address] [id number] [address] [place] [address], [place] [address] Aug, [facility] [address] [id number] [address] [place] [address], [place] [address] Aug, [facility] [address] [id number] [address] [place] [address], [place] [address] Aug, [facility] [address] [id number] [address] [place] [address], [place] [address] Aug, [facility] [address] [id number] [address] [place] [address], [place] [address] 05 Aug, 2013 [facility] [address] [id number] [address] [place] [address], [place] [address] 05 Aug, 2013 [facility] [address] [id number] [address] [place] [address], [place] [address] Aug, [facility] [address] [id number] [address] [place] [address], [place] [address] Aug, [facility] [address] [id number] [address] [place] [address], [place] [address] Aug, [facility] [address] [id number] [address] [place] [address], [place] [address] Aug, [facility] [address] [id number] [address] [place] [address], [place] [address] Aug, [facility] [address] [id number] [address] [place] [address], [place] [address] Aug, [facility] [address] [id number] [address] [place] [address], [place] [address] Aug, [facility] [address] [id number] [address] [place] [address], [place] [address] Aug, [facility] [address] [id number] [address] [place] [address], [place] [address] 14 Aug, 2013 [facility] [address] [id number] [address] [place] [address], [place] [address] Aug, [facility] [address] [id number] [address] [place] [address], [place] [address] Aug, [facility] [address] [id number] [address] [place] [address], [place] [address] Aug, [facility] [address] [id number] [address] [place] [address], [place] [address] Aug, [facility] [address] [id number] [address] [place] [address], [place] [address] Aug, [facility] [address] [address] [id number] [address] [place] [address], [place] [address] Aug, [facility] [address] [id number] [address] [place] [address], [place] [address] Aug, [facility] [address] [id number] [address] [place] [address], [place] [address] 04 Aug, 2013 [facility] [address] [id number] [address] [place] [address], [place] [address] Aug, [facility] [address] [id number] [address] [place] [address], [place] [address] Aug, [facility] [address] [id number] [address] [place] [address], [place] [address] Jul, [facility] [address] [id number] [address] [place] [address], [place] [address] Jul, [facility] [address] [id number] [address] [place] [address], [place] [address] Jul, [facility] [address] [id number] [address] [place] [address], [place] [address] Jul, [facility] [address] [id number] [address] [place] [address], [place] [address] Jul, [facility] [address] [id number] [address] [place] [address], [place] [address] Jul, [facility] [address] [id number] [address] [place] [address], [place] [address] Jul, [facility] [address] [id number] [address] [place] [address], [place] [address] Jul, [facility] [address] [id number] [address] [place] [address], [place] [address] Jul, [facility] [address] [id number] [address] [place] [address], [place] [address] Jul, [facility] [address] [id number] [address] [place] [address], [place] [address] Jul, [facility] [address] [id number] [address] [place] [address], [place] [address] Jul, [facility] [address] [id number] [address] [place] [address], [place] [address] Jul, [facility] [address] [id number] [address] [place] [address], [place] [address] Jul, [facility] [address] [id number] [address] [place] [address], [place] [address] Jul, [facility] [address] [id number] [address] [place] [address], [place] [address] Jul, [facility] [address] [id number] [address] [place] [address], [place] [address] Jul, [facility] [address] [id number] [address] [place] [address], [place] [address] Jul, [facility] [address] [id number] [address] [place] [address], [place] [address] Jul, [facility] [address] [id number] [address] [place] [address], [place] [address] Jul, [facility] [address] [id number] [address] [place] [address], [place] [address] Jun, [facility] [address] [id number] [address] [place] [address], [place] [address] Jun, [facility] [address] [id number] [address] [place] [address], [place] [address] Jun, [facility] [address] [id number] [address] [place] [address], [place] [address] Jun, [facility] [address] [id number] [address] [place] [address], [place] [address] Jun, [facility] [address] [id number] [address] [place] [address], [place] [address] Jun, [facility] [address] [id number] [address] [place] [address], [place] [address] Jun, [facility] [address] [id number] [address] [place] [address], [place] [address] Jun, [facility] [address] [id number] [address] [place] [address], [place] [address] Jun, [facility] [address] [id number] [address] [place] [address], [place] [address] Jun, [facility] [address] [id number] [address] [place] [address], [place] [address] Jun, [facility] [address] [id number] [address] [place] [address], [place] [address] Jun, [facility] [address] [id number] [address] [place] [address], [place] [address] Jun, [facility] [address] [id number] [address] [place] [address], [place] [address] Jun, [facility] [address] [id number] [address] [place] [address], [place] [address] Jun, [facility] [address] [id number] [address] [place] [address], [place] [address] 18 Jun, 2013 [facility] [address] [id number] [address] [place] [address], [place] [address] 18 Jun, 2013 [facility] [address] [id number] [address] [place] [address], [place] [address] 17 Jun, 2013 [facility] [address] [id number] [address] [place] [address], [place] [address] 17 Jun, 2013 [facility] [address] [id number] [address] [place] [address], [place] [address] 13 Jun, 2013 [facility] [address] [id number] [address] [place] [address], [place] [address] 12 Jun, 2013 [facility] [address] [id number] [address] [place] [address], [place] [address] 12 Jun, 2013 [facility] [address] [id number] [address] [place] [address], [place] [address] 09 Jun, 2013 [facility] [address] [id number] [address] [place] [address], [place] [address] 05 Jun, 2013 [facility] [address] [id number] [address] [place] [address], [place] [address] 05 Jun, 2013 [facility] [address] [id number] [address] [place] [address], [place] [address] Jun, [facility] [address] [id number] [address] [place] [address], [place] [address] Jun, [facility] [address] [id number] [address] [place] [address], [place] [address] May, [facility] [address] [id number] [address] [place] [address], [place] [address] May, [facility] [address] [id number] [address] [place] [address], [place] [address] May, [facility] [address] [id number] [address] [place] [address], [place] [address] May, [facility] [address] [id number] [address] [place] [address], [place] [address] May, [facility] [address] [id number] [address] [place] [address], [place] [address] May, [facility] [address] [id number] [address] [place] [address], [place] [address] Apr, [facility] [address] [id number] [address] [place] [address], [place] [address] Apr, [facility] [address] [id number] [address] [place] [address], [place] [address] 30 Apr, 2013 [facility] [address] [id number] [address] [place] [address], [place] [address] 30 Apr, 2013 [facility] [address] [id number] [address] [place] [address], [place] [address] Apr, [facility] [address] [id number] [address] [place] [address], [place] [address] 15 Apr, 2013 [facility] [address] [id number] [address] [place] [address], [place] [address] Apr, [facility] [address] [id number] [address] [place] [address], [place] [address] Apr, [facility] [address] [id number] [address] [place] [address], [place] [address] 26 Mar, 2012 [facility] [address] [id number] [address] [place] [address], [place] [address] 24 Mar, 2012 [facility] [address] [id number] [address] [place] [address], [place] [address] 17 Mar, 2012 [facility] [address] [id number] [address] [place] [address], [place] [address] 17 Mar, 2012 [facility] [address] [id number] [address] [place] [address], [place] [address] 11 Mar, 2013 [facility] [address] [id number] [address] [place] [address], [place] [address] 10 Mar, 2013 [facility] [address] [id number] [address] [place] [address], [place] [address] 05 Mar, 2013 [facility] [address] [id number] [address] [place] [address], [place] [address] 04 Mar, 2013 [facility] [address] [id number] [address] [place] [address], [place] [address] 20 Jan, 2013 [facility] [address] [id number] [address] [place] [address], [place] [address] Jan, [facility] [address] [id number] [address] [place] [address], [place] [address] 14 Jan, 2013 [facility] [address] [id number] [address] [place] [address], [place] [address] Jan, [facility] [address] [id number] [address] [place] [address], [place] [address] Jan, [facility] [address] [id number] [address] [place] [address], [place] [address] 05 Jan, 2013 [facility] [address] [id number] [address] [place] [address] 31 Dec, 2012 [facility] [address] [id number] [facility] [address] 24 Dec, 2012 [facility] [address] [id number] [address] [place] [address], [place] [address] 22 Dec, 2012 [facility] [address] [id number] [address] [place] [address], [place] [address] 19 Dec, 2012 [facility] [address] [id number] [address] [place] [address], [place] [address] 18 Dec, 2012 [facility] [address] [id number] [address] [place] [address], [place] [address] 17 Dec, 2012 [facility] [address] [id number] [address] [place] [address], [place] [address] 16 Dec, 2012 [facility] [address] [id number] [address] [place] [address], [place] [address] 16 Dec, 2012 [facility] [address] [id number] [address] [place] [address], [place] [address] 15 Dec, 2012 [facility] [address] [id number] [address] [place] [address], [place] [address] 10 Dec, 2012 [facility] [address] [id number] [address] [place] [address], [place] [address] 28 Dec, 2012 [facility] [address] [id number] [address] [place] [address], [place] [address] 25 Dec, 2012 [facility] [address] [id number] [address] [place] [address], [place] [address] 19 Dec, 2012 [facility] [address] [id number] [address] [place] [address], [place] [address] 17 Dec, 2012 [facility] [address] [id number] [address] [place] [address], [place] [address] 13 Dec, 2012 [facility] [address] [id number] [address] [place] [address], [place] [address] 11 Dec, 2012 [facility] [address] [id number] [address] [place] [address], [place] [address] October, [facility] [address] [id number] [address] [place] [address], [place] [address] October, [facility] [address] [id number] [address] [place] [address], [place] [address] October, [facility] [address] [id number] [address] [place] [address], [place] [address] October, [facility] [address] [id number] [address] [place] [address], [place] [address] October, [facility] [address] [id number] [address] [place] [address], [place] [address] October, [facility] [address] [id number] [address] [place] [address], [place] [address] October, [facility] [address] [id number] [address] [place] [address], [place] [address] Oct, [facility] [address] [id number] [address] [place] [address], [place] [address] Oct, [facility] [address] [id number] [address] [place] [address], [place] [address] 24 Oct, 2012 [facility] [address] [id number] [address] [place] [address], [place] [address] Oct, [facility] [address] [id number] [address] [place] [address], [place] [address] Oct, [facility] [address] [id number] [address] [place] [address], [place] [address] 18 Oct, 2012 [facility] [address] [id number] [address] [place] [address], [place] [address] 17 Oct, 2012 [facility] [address] [id number] [address] [place] [address], [place] [address] 15 Oct, 2012 [facility] [address] [id number] [address] [place] [address] [address] Oct, [facility] [address] [id number] [address] [place] [address], [place] [address] Oct, [facility] [address] [id number] [address] [place] [address], [place] [address] Oct, [facility] [address] [id number] [address] [place] [address], [place] [address] Oct, [facility] [address] [id number] [address] [place] [address], [place] [address] Aug, [facility] [address] [id number] [address] [place] [address], [place] [address] Aug, [facility] [address] [id number] [address] [place] [address], [place] [address] Aug, [facility] [address] [id number] [address] [place] [address], [place] [address] Aug, [facility] [address] [id number] [address] [place] [address], [place] [address] Aug, [facility] [address] [id number] [address] [place] [address], [place] [address] Aug, [facility] [address] [id number] [address] [place] [address], [place] [address] Aug, [facility] [address] [id number] [address] [place] [address], [place] [address] 14 Aug, 2012 [facility] [address] [id number] [address] [place] [address], [place] [address] Aug, [facility] [address] [id number] [address] [place] [address], [place] [address] Aug, [facility] [address] [id number] [address] [place] [address], [place] [address] 29 Jul, 2012 [facility] [address] [id number] [address] [place] [address], [place] [address] 15 Jul, 2012 [facility] [address] [id number] [address] [place] [address], [place] [address] 08 Jul, 2012 [facility] [address] [id number] [address] [place] [address], [place] [address] 20 Jun, 2012 [facility] [address] [id number] [address] [place] [address], [place] [address] 18 Jun, 2012 [facility] [address] [id number] [address] [place] [address], [place] [address] 18 Jun, 2012 [facility] [address] [id number] [address] [place] [address], [place] [address] 18 Jun, 2012 [facility] [address] [id number] [address] [place] [address], [place] [address] 18 Jun, 2012 [facility] [address] [id number] [address] [place] [address], [place] [address] 14 Jun, 2012 [facility] [address] [id number] [address] [place] [address], [place] [address] 14 Jun, 2012 [facility] [address] [id number] [address] [place] [address], [place] [address] 13 Jun, 2012 [facility] [address] [id number] [address] [place] [address], [place] [address] 13 Jun, 2012 [facility] [address] [id number] [address] [place] [address], [place] [address] 11 Jun, 2012 [facility] [address] [id number] [address] [place] [address], [place] [address] 11 Jun, 2012 [facility] [address] [id number] [address] [place] [address], [place] [address] 11 Jun, 2012 [facility] [address] [id number] [address] [place] [address], [place] [address] 11 Jun, 2012 [facility] [address] [id number] [address] [place] [address], [place] [address] 07 Jun, 2012 [facility] [address] [id number] [address] [place] [address], [place] [address] Jun, [facility] [address] [id number] [address] [place] [address], [place] [address] Jun, [facility] [address] [id number] [address] [place] [address], [place] [address] Jun, [facility] [address] [id number] [address] [place] [address], [place] [address] Jun, [facility] [address] [id number] [address] [place] [address], [place] [address] Jun, [facility] [address] [id number] [address] [place] [address], [place] [address] Jun, [facility] [address] [id number] [address] [place] [address], [place] [address] Jun, [facility] [address] [id number] [address] [place] [address], [place] [address] Jun, [facility] [address] [id number] [address] [place] [address], [place] [address] Jun, [facility] [address] [id number] [address] [place] [address], [place] [address] May, [facility] [address] [id number] [address] [place] [address], [place] [address] May, [facility] [address] [id number] [address] [place] [address], [place] [address] May, [facility] [address] [id number] [address] [place] [id number] May, [facility] [address] [id number] [address] [place] [address], [place] [address] May, [facility] [address] [id number] [address] [place] [address], [place] [address] May, [facility] [address] [id number] [address] [place] [address], [place] [address] May, [facility] [address] [id number] [address] [place] [id number] 06 May, 2012 [facility] [address] [id number] [address] [place] [address], [place] [address] 30 Apr, 2012 [facility] [address] [id number] [address] [place] [id number] 30 Apr, 2012 [facility] [address] [id number] [address] [place] [address], [place] [address] 29 Apr, 2012 [facility] [address] [id number] [address] [place] [address], [place] [address] 16 Apr, 2012 [facility] [address] [id number] [address] [place] [address], [place] [address] Apr, [facility] [address] [id number] [address] [place] [address], [place] [address] Apr, [facility] [address] [id number] [address] [place] [id number] Apr, [facility] [address] [id number] [address] [place] [address], [place] [address] Apr, [facility] [address] [id number] [address] [place] [address], [place] [address] 09 Apr, 2012 [facility] [address] [id number] [address] [place] [id number] 08 Apr, 2012 [facility] [address] [id number] [address] [place] [id number] 04 Apr, 2012 [facility] [address] [id number] [address] [place] [id number] 02 Apr, 2012 [facility] [address] [id number] [address] [place] [id number] 19 Mar, 2012 [facility] [address] [id number] [address] [place] [id number] 18 Mar, 2012 [facility] [address] [id number] [address] [place] [id number] 12 Mar, 2012 [facility] [address] [id number] [address] [place] [address], [place] [address] Mar, [facility] [address] [id number] [address] [place] [address], [place] [id number] Mar, [facility] [address] [id number] [address] [place] [address], [place] [id number] Mar, [facility] [address] [id number] [address] [place] [address], [place] [address] Mar, [facility] [address] [id number] [address] [place] [address], [place] [address] Jan, [facility] [address] [id number] [address] [place] [address], [place] [address] Jan, [facility] [address] [id number] [address] [place] [address], [place] [id number] Jan, [facility] [address] [id number] [address] [place] [address], [place] [id number] Jan, [facility] [address] [id number] [address] [place] [address], [place] [address] Jan, [facility] [address] [id number] [address] [place] [address], [place] [address] Jan, [facility] [address] [id number] [address] [place] [address], [place] [address] Jan, [facility] [address] [id number] [address] [place] [address], [place] [address] Jan, [facility] [address] [id number] [address] [place] [address], [place] [address] Jan, [facility] [address] [id number] [address] [place] [address], [place] [address] Jan, [facility] [address] [id number] [address] [place] [address], [place] [address] Jan, [facility] [address] [id number] [address] [place] [address], [place] [address] Dec, [facility] [address] [id number] [address] [place] [address], [place] [address] 27 Jan, 2012 [facility] [address] [id number] [address] [place] [address], [place] [address] Dec, [facility] [address] [id number] [address] [place] [address], [place] [address] 26 Jan, 2012 [facility] [address] [id number] [address] [place] [address], [place] [address] 20 Jan, 2012 [facility] [address] [id number] [address] [place] [address], [place] [address] 19 Jan, 2012 [facility] [address] [id number] [address] [place] [address], [place] [address] 18 Jan, 2012 [facility] [address] [id number] [address] [place] [address], [place] [address] 17 Jan, 2012 [facility] [address] [id number] [address] [place] [address], [place] [address] 16 Jan, 2012 [facility] [address] [id number] [address] [place] [address], [place] [address] Dec, [facility] [address] [id number] [address] [place] [address], [place] [address] Dec, [facility] [address] [id number] [address] [place] [address], [place] [address] Dec, [facility] [address] [id number] [address] [place] [address], [place] [address] Dec, [facility] [address] [id number] [address] [place] [address], [place] [address] Dec, [facility] [address] [id number] [address] [place] [address], [place] [address] Dec, [facility] [address] [id number] [address] [place] [address], [place] [address] Dec, [facility] [address] [id number] [address] [place] [address], [place] [address] Dec, [facility] [address] [id number] [address] [place] [address], [place] [address] Dec, [facility] [address] [id number] [address] [place] [address], [place] [address] Dec, [facility] [address] [id number] [address] [place] [address], [place] [address] October, [facility] [address] [id number] [address] [place] [address], [place] [address] October, [facility] [address] [id number] [address] [place] [address], [place] [address] October, [facility] [address] [id number] [address] [place] [address], [place] [address] October, [facility] [address] [id number] [address] [place] [address], [place] [address] October, [facility] [address] [id number] [address] [place] [address], [place] [address] October, [facility] [address] [id number] [address] [place] [address], [place] [address] Oct, [facility] [address] [id number] [address] [place] [address], [place] [address] Oct, [facility] [address] [id number] [address] [place] [address], [place] [address] Oct, [facility] [address] [id number] [address] [place] [address], [place] [address] Oct, [facility] [address] [id number] [address] [place] [address], [place] [address] Oct, [facility] [address] [id number] [address] [place] [address], [place] [address] Oct, [facility] [address] [id number] [address] [place] [address], [place] [address] Oct, [facility] [address] [id number] [address] [address] 29 Sep, 2011 [facility] [address] [id number] [address] [place] [address], [place] [address] 29 Sep, 2011 [facility] [address] [id number] [address] [place] [address], [place] [address] 19 Sep, 2011 [facility] [address] [id number] [address] [place] [address], [place] [address] 13 Sep, 2011 [facility] [address] [id number] [address] [place] [address], [place] [address] 05 Sep, 2011 [facility] [address] [id number] [address] [place] [address], [place] [address] 05 Sep, 2011 [facility] [address] [id number] [address] [place] [address], [place] [address] 27 Aug, 2011 [facility] [address] [id number] [address] [place] [address], [place] [address] 20 Aug, 2011 [facility] [address] [id number] [address] [place] [address], [place] [address] 08 Aug, 2011 [facility] [address] [id number] [address] [place] [address], [place] [address] Jul, [facility] [address] [id number] [address] [place] [address], [place] [address] Jul, [facility] [address] [id number] [address] [place] [address], [place] [address] Jul, [facility] [address] [id number] [address] [place] [address], [place] [address] Jul, [facility] [address] [id number] [address] [place] [address], [place] [address] Jun, [facility] [address] [id number] [address] [place] [address], [place] [address] Jun, [facility] [address] [id number] [address] [address] May, [facility] [address] [id number] [address] [place] [address] May, [facility] [address] [id number] [address] [place] [address] May, [facility] [address] [id number] [address] [place] [address] May, [facility] [address] [id number] [address] [place] [address] May, [facility] [address] [id number] [address] [place] [address] Apr, [facility] [address] [id number] [address] [place] [address] Apr, [facility] [address] [id number] [address] [place] [address] Apr, [facility] [address] [id number] [address] [place] [address] Jan, [facility] [address] [id number] [address] [place] [address] Dec, [facility] [address] [id number] [address] [place] [address] October, [facility] [address] [id number] [address] [place] [address] Jun, [facility] [address] [id number] [address] [place] [address] Apr, [facility] [address] [id number] [address] [place] [address] Apr, [facility] [address] [id number] [address] [place] [address] Apr, [facility] [address] [id number] [address] [place] [address] Jun, IMMUNIZATIONS No Known Immunizations SOCIAL HISTORY Never Assessed REASON FOR VISIT adderall/valium 12/28/2017 PLAN OF CARE VITAL SIGNS MEDICATIONS Medication Instructions Dosage Frequency Start Date End Date Duration S tatus Valium 5 mg Orally Twice a day 1 tablet as needed 12h 30 days Active Adderall 10 mg Orally 3 times [...]
--- OUTSIDE RECORDS SUMMARY | 2020-01-25 13:12 | XMS REPORT ---
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 Name Role Phone Jackie ESCAMILLAYEN Unavailable PROBLEMS Type Condition ICD9-CM Code XSS28-XE Code Onset Dates Condition S tatus SNOMED Code Problem Attention deficit R41.840 Active 76 078345 Problem Cannabis abuse F12.10 Active 15837 009 Problem Chronic hepatitis C without hepatic coma B18.2 Active 559796762 Problem Attention deficit hyperactivity disorder (ADHD), combi luciano type F90.2 Active 65827710 Problem Bipolar disorder, in partial remission, most rec ent episode hypomanic F31.71 Active 239082500 Problem H/O laminectomy Z98.89 Active 1616 03513 Problem Bipolar 1 disorder F31.9 Active 3 46698613 Problem Anxiety disorder, unspecified type F41.9 Active 298971796 Problem Other chronic pain G89.29 Active 8 0325301 ALLERGIES No Information ENCOUNTERS Encounter Location Date Diagnosis [facility] [address] [id number] [address] [place] [phone] Apr, [facility] [address] [id number] [address] [place] [address] Jan, [facility] [address] [id number] [address] [place] [address] Dec, Bipolar disorder, in partial remission, most recent episode hypomanic F31.71 [facility] [address] [id number] [address] [place] [phone] Dec, Bipolar disorder, in partial remission, most recent episode hypomanic F31.71 ; Attention deficit hyperactivity disorder (ADHD), combined type F90.2 ; Anxiety disorder, unspecified type F41.9 and Other group home (current) drug therapy Z79.899 [facility] [address] [id number] [address] [place] [address] Dec, Bipolar disorder, in partial remission, most recent episode hypomanic F31.71 [facility] [address] [id number] [address] [place] [address] Dec, Bipolar disorder, in partial remission, most recent episode hypomanic F31.71 [facility] [address] [facility] [id number] [address] [place] [address] October, Bipolar disorder, in partial remission, most recent episode hypomanic F31.71 [facility] [address] [id number] [address] [place] [address] October, [facility] [address] [facility] [id number] [address] [place] [address] October, [facility] [address] [facility] [id number] [address] [place] [address] Oct, Bipolar disorder, in partial remission, most recent episode hypomanic F31.71 ; Attention deficit hyperactivity disorder (ADHD), combined type F90.2 ; Anxiety disorder, unspecified type F41.9 and Encounter for drug screening Z02.83 [facility] [address] [facility] [id number] [address] [place] [address] Oct, Bipolar disorder, in partial remission, most recent episode hypomanic F31.71 [facility] [address] [facility] [id number] [address] [place] [address] Oct, Bipolar disorder, in partial remission, most recent episode hypomanic F31.71 [facility] [address] [facility] [id number] [address] [place] [address] Aug, Bipolar disorder, in partial remission, most recent episode hypomanic F31.71 [facility] [address] [facility] [id number] [address] [place] [address] Aug, Bipolar disorder, in partial remission, most recent episode hypomanic F31.71 [facility] [address] [facility] [id number] [address] [place] [address] Aug, Bipolar disorder, in partial remission, most recent episode hypomanic F31.71 [facility] [address] [id number] [address] [place] [address] Jul, Bipolar disorder, in partial remission, most recent episode hypomanic F31.71 ; Attention deficit hyperactivity disorder (ADHD), combined type F90.2 and Anxiety disorder, unspecified type F41.9 [facility] [address] [facility] [id number] [address] [place] [address] Jul, Bipolar disorder, in partial remission, most recent episode hypomanic F31.71 [facility] [address] [id number] [address] [place] [address] Jun, Bipolar disorder, in partial remission, most recent episode hypomanic F31.71 [facility] [address] [id number] [address] [place] [address] May, Bipolar disorder, in partial remission, most recent episode hypomanic F31.71 [facility] [address] [facility] [id number] [address] [place] [address] May, Bipolar disorder, in partial remission, most recent episode hypomanic F31.71 [facility] [address] [facility] [id number] [address] [place] [address] Apr, [facility] [address] [facility] [id number] [address] [place] [address] Apr, Bipolar disorder, in partial remission, most recent episode hypomanic F31.71 ; Attention deficit hyperactivity disorder (ADHD), combined type F90.2 ; Anxiety disorder, unspecified type F41.9 and Cannabis abuse F12.10 [facility] [address] [id number] [address] [place] [address] Apr, Attention deficit hyperactiv ity disorder (ADHD), combined type F90.2 [facility] [address] [id number] [address] [place] [address] Mar, Attention deficit hyperactiv ity disorder (ADHD), combined type F90.2 [facility] [address] [id number] [address] [place] [id number] 14 Mar, 2017 Anxiety disorder, unspecifie d type F41.9 [facility] [address] [facility] [id number] [address] [place] [address] Jan, Attention deficit hyperactiv ity disorder (ADHD), combined type F90.2 [facility] [address] [facility] [id number] [address] [place] [address] Jan, Anxiety disorder, unspecifie d type F41.9 [facility] [address] [facility] [id number] [address] [place] [address] Jan, Other chronic pain G89.29 ; Chronic hepatitis C without hepatic coma B18.2 and Bipolar 1 disorder F31.9 [facility] [address] [facility] [id number] [address] [place] [address] Dec, Attention deficit hyperactiv ity disorder (ADHD), combined type F90.2 [facility] [address] [facility] [id number] [address] [place] [address] Dec, Bipolar disorder, in partial remission, most recent episode hypomanic F31.71 ; Attention deficit hyperactivity disorder (ADHD), combined type F90.2 and Anxiety disorder, unspecified type F41.9 [facility] [address] [facility] [id number] [address] [place] [address] Dec, Bipolar disorder, in partial remission, most recent episode hypomanic F31.71 ; Attention deficit hyperactivity disorder (ADHD), combined type F90.2 and Anxiety disorder, unspecified type F41.9 [facility] [address] [facility] [id number] [address] [place] [address] Dec, Bipolar 1 disorder F31.9 and Attention deficit R41.840 [facility] [address] [facility] [id number] [address] [place] [address] Oct, Other chronic pain G89.29 ; Alopecia L65.9 and Screening, lipid Z13.220 [facility] [address] [id number] [address] [place] [address] Oct, [facility] [address] [id number] [address] [place] [address] Aug, [facility] [address] [facility] [id number] [address] [place] [address] Aug, Eustachian tube dysfunction, right H69.81 ; Vertigo R42 and Other chronic pain G89.29 [facility] [address] [id number] [address] [place] [address] Aug, [facility] [address] [id number] [address] [place] [address] Jun, [facility] [address] [facility] [id number] [address] [place] [address] Jun, Low back pain M54.5 and Othe r chronic pain G89.29 [facility] [address] [id number] [address] [place] [address] Jun, [facility] [address] [id number] [address] [place] [address] May, [facility] [address] [facility] [id number] [address] [place] [address] Jan, [facility] [address] [facility] [id number] [address] [place] [phone] Dec, [facility] [address] [facility] [id number] [address] [place] [address] Dec, [facility] [address] [facility] [id number] [address] [place] [address] Jun, [facility] [address] [facility] [id number] [address] [place] [address] Apr, Eustachian tube dysfunction, unspecified laterality H69.80 ; Hot flashes N95.1 and Encounter for immunization Z23 [facility] [address] [id number] [address] [place] [address] Jan, [facility] [address] [id number] [address] [place] [address] Jan, [facility] [address] [id number] [address] [place] [phone] Jan, [facility] [address] [facility] [id number] [address] [place] [address] Jan, [facility] [address] [id number] [address] [place] [address] Jan, Encounter to establish care V65.8 ; Bipolar 1 disorder 296.7 ; Abdominal pain 789.00 ; Constipation 564.00 ; Hard of hearing 389.9 and Drug abuse 305.90 [facility] [address] [id number] [address] [place] [address] Dec, [facility] [address] [id number] [address] [place] [address] October, [facility] [address] [id number] [address] [place] [address] October, [facility] [address] [id number] [address] [place] [address] Oct, [facility] [address] [id number] [address] [place] [address] Oct, [facility] [address] [id number] [address] [place] [address] Oct, [facility] [address] [id number] [address] [place] [address] Aug, [facility] [address] [id number] [address] [place] [address] Aug, [facility] [address] [id number] [address] [place] [address] Aug, [facility] [address] [id number] [address] [place] [phone] Aug, [facility] [address] [id number] [address] [place] [address], [place] [address] Aug, 2014 [facility] [address] [id number] [address] [place] [address], [place] [address] Aug, 2014 [facility] [address] [id number] [address] [place] [address], [place] [address] Aug, 2014 [facility] [address] [id number] [address] [place] [address], [place] [address] Aug, 2014 [facility] [address] [id number] [address] [place] [address], [place] [address] Aug, 2014 [facility] [address] [id number] [address] [place] [address], [place] [address] Aug, 2014 [facility] [address] [id number] [address] [place] [address], [place] [address] Aug, 2014 [facility] [address] [id number] [address] [place] [address], [place] [address] Aug, 2014 [facility] [address] [id number] [address] [place] [address], [place] [address] Aug, [facility] [address] [id number] [address] [place] [address], [place] [address] Aug, [facility] [address] [id number] [address] [place] [address], [place] [address] Aug, [facility] [address] [id number] [address] [place] [address], [place] [address] Jul, [facility] [address] [id number] [address] [place] [address], [place] [address] Jul, [facility] [address] [id number] [address] [place] [address], [place] [address] Jul, [facility] [address] [id number] [address] [place] [address], [place] [address] Jul, [facility] [address] [id number] [address] [place] [address], [place] [address] Jul, [facility] [address] [id number] [address] [place] [address], [place] [address] Jul, [facility] [address] [id number] [address] [place] [address], [place] [address] Jul, [facility] [address] [id number] [address] [place] [address], [place] [address] Jul, [facility] [address] [id number] [address] [place] [address], [place] [address] Jun, [facility] [address] [id number] [address] [place] [address], [place] [address] Jun, [facility] [address] [id number] [address] [place] [address], [place] [address] Jun, [facility] [address] [id number] [address] [place] [address], [place] [address] Jun, [facility] [address] [id number] [address] [place] [address], [place] [address] Jun, [facility] [address] [id number] [address] [place] [address], [place] [address] Jun, [facility] [address] [id number] [address] [place] [address], [place] [address] Jun, [facility] [address] [id number] [address] [place] [address], [place] [address] Jun, [facility] [address] [id number] [address] [place] [address], [place] [address] Jun, [facility] [address] [id number] [address] [place] [address], [place] [address] Jun, [facility] [address] [id number] [address] [place] [address], [place] [address] Jun, [facility] [address] [id number] [address] [place] [address], [place] [address] May, [facility] [address] [id number] [address] [place] [address], [place] [address] May, [facility] [address] [id number] [address] [place] [address], [place] [address] May, [facility] [address] [id number] [address] [place] [address], [place] [address] May, [facility] [address] [id number] [address] [place] [address], [place] [address] May, [facility] [address] [id number] [address] [place] [address], [place] [address] May, [facility] [address] [id number] [address] [place] [address], [place] [address] May, [facility] [address] [id number] [address] [place] [address], [place] [address] Apr, [facility] [address] [id number] [address] [place] [address], [place] [address] Apr, [facility] [address] [id number] [address] [place] [address], [place] [address] Apr, [facility] [address] [id number] [address] [place] [address] Apr, [facility] [address] [id number] [address] [place] [address] Apr, [facility] [address] [id number] [address] [place] [address] Apr, [facility] [address] [id number] [address] [place] [address], [place] [address] Mar, [facility] [address] [id number] [address] [place] [address], [place] [address] Mar, [facility] [address] [id number] [address] [place] [address] Mar, [facility] [address] [id number] [address] [place] [address] Mar, [facility] [address] [id number] [address] [place] [address], [place] [address] Mar, [facility] [address] [id number] [address] [place] [address], [place] [address] Mar, [facility] [address] [id number] [address] [place] [address], [place] [address] Jan, [facility] [address] [id number] [address] [place] [address], [place] [address] Jan, [facility] [address] [id number] [address] [place] [address], [place] [address] Jan, [facility] [address] [id number] [address] [place] [address], [place] [address] Jan, [facility] [address] [id number] [address] [place] [address], [place] [address] Dec, [facility] [address] [id number] [address] [place] [address], [place] [address] Dec, [facility] [address] [id number] [address] [place] [address], [place] [address] Dec, [facility] [address] [id number] [address] [place] [address], [place] [address] Dec, [facility] [address] [id number] [address] [place] [address], [place] [address] Dec, [facility] [address] [id number] [address] [place] [address], [place] [address] Dec, [facility] [address] [id number] [address] [place] [address], [place] [address] Dec, [facility] [address] [id number] [address] [place] [address], [place] [address] Dec, [facility] [address] [id number] [address] [place] [address], [place] [address] Dec, [facility] [address] [id number] [facility] [place] [address] Dec, [facility] [address] [id number] [facility] [place] [address] Dec, [facility] [address] [id number] [facility] [place] [address] Dec, [facility] [address] [id number] [address] [place] [address], [place] [address] October, [facility] [address] [id number] [address] [place] [address], [place] [address] October, [facility] [address] [id number] [address] [place] [address], [place] [address] October, [facility] [address] [id number] [address] [place] [address], [place] [address] October, [facility] [address] [id number] [address] [place] [address], [place] [address] October, [facility] [address] [id number] [address] [place] [address], [place] [address] October, [facility] [address] [id number] [address] [place] [address], [place] [address] Oct, [facility] [address] [id number] [address] [place] [address], [place] [address] Oct, [facility] [address] [id number] [address] [place] [address], [place] [address] Oct, [facility] [address] [id number] [address] [place] [address], [place] [address] Oct, [facility] [address] [id number] [address] [place] [address], [place] [address] Oct, [facility] [address] [id number] [address] [place] [address], [place] [address] Oct, [facility] [address] [id number] [address] [place] [address], [place] [address] Oct, [facility] [address] [id number] [facility] [place] [address] Oct, [facility] [address] [id number] [address] [place] [address], [place] [address] Oct, [facility] [address] [id number] [address] [place] [address], [place] [address] Oct, [facility] [address] [id number] [address] [place] [address], [place] [address] Oct, [facility] [address] [id number] [address] [place] [address], [place] [address] Oct, [facility] [address] [id number] [address] [place] [address], [place] [address] Aug, [facility] [address] [id number] [address] [place] [address], [place] [address] Aug, [facility] [address] [id number] [address] [place] [address], [place] [address] Aug, [facility] [address] [id number] [address] [place] [address], [place] [id number] Aug, [facility] [address] [id number] [address] [place] [address], [place] [address] Aug, [facility] [address] [id number] [address] [place] [address], [place] [address] Aug, [facility] [address] [id number] [address] [place] [address], [place] [address] Aug, [facility] [address] [id number] [address] [place] [address], [place] [id number] Aug, [facility] [address] [id number] [address] [place] [address], [place] [address] Aug, [facility] [address] [id number] [address] [place] [address], [place] [address] Aug, [facility] [address] [id number] [address] [place] [address], [place] [id number] 24 Aug, 2013 [facility] [address] [id number] [address] [place] [address], [place] [id number] Aug, 2013 [facility] [address] [id number] [address] [place] [address], [place] [id number] 21 Aug, 2013 [facility] [address] [id number] [address] [place] [address], [place] [id number] 20 Aug, 2013 [facility] [address] [id number] [address] [place] [address], [place] [id number] 14 Aug, 2013 [facility] [address] [id number] [address] [place] [address], [place] [id number] 14 Aug, 2013 [facility] [address] [id number] [address] [place] [address], [place] [id number] 14 Aug, 2013 [facility] [address] [id number] [address] [place] [address], [place] [id number] 14 Aug, 2013 [facility] [address] [id number] [address] [place] [address], [place] [id number] 07 Aug, 2013 [facility] [address] [id number] [address] [place] [address], [place] [id number] 07 Aug, 2013 [facility] [address] [id number] [address] [place] [address], [place] [id number] 06 Aug, 2013 [facility] [address] [id number] [address] [place] [id number] 06 Aug, 2013 [facility] [address] [id number] [address] [place] [address], [place] [id number] 04 Aug, 2013 [facility] [address] [id number] [address] [place] [address], [place] [id number] 04 Aug, 2013 [facility] [address] [id number] [address] [place] [address], [place] [id number] 03 Aug, 2013 [facility] [address] [id number] [address] [place] [id number] Jul, [facility] [address] [id number] [address] [place] [address], [place] [id number] Jul, [facility] [address] [id number] [address] [place] [address], [place] [address] Jul, [facility] [address] [id number] [address] [place] [address], [place] [address] Jul, [facility] [address] [id number] [address] [place] [address], [place] [address] Jul, [facility] [address] [id number] [address] [place] [address], [place] [id number] Jul, [facility] [facility] [address] [id number] [address] [place] [address], [place] [address] Jul, [facility] [address] [id number] [address] [place] [address], [place] [address] Jul, [facility] [address] [id number] [address] [place] [address], [place] [address] Jul, [facility] [address] [id number] [address] [place] [address], [place] [address] Jul, [facility] [address] [id number] [address] [place] [address], [place] [address] Jul, [facility] [address] [id number] [address] [place] [address], [place] [address] Jul, [facility] [address] [id number] [address] [place] [address], [place] [address] Jul, [facility] [address] [id number] [address] [place] [address], [place] [address] Jul, [facility] [address] [id number] [address] [place] [address], [place] [address] Jul, [facility] [address] [id number] [address] [place] [address], [place] [address] Jul, [facility] [address] [id number] [address] [place] [address], [place] [address] Jul, [facility] [address] [id number] [address] [place] [address], [place] [address] Jul, [facility] [address] [id number] [address] [place] [address], [place] [address] Jul, [facility] [address] [id number] [address] [place] [address], [place] [address] Jul, [facility] [address] [id number] [address] [place] [address], [place] [address] Jun, [facility] [address] [id number] [address] [place] [address], [place] [address] Jun, [facility] [address] [id number] [address] [place] [address], [place] [address] Jun, [facility] [address] [id number] [address] [place] [address], [place] [address] Jun, [facility] [address] [id number] [address] [place] [address], [place] [address] Jun, [facility] [address] [id number] [address] [place] [address], [place] [address] Jun, [facility] [address] [id number] [address] [place] [address], [place] [address] Jun, [facility] [address] [id number] [address] [place] [address], [place] [address] Jun, [facility] [address] [id number] [address] [place] [address], [place] [address] Jun, [facility] [address] [id number] [address] [place] [address], [place] [address] Jun, [facility] [address] [id number] [address] [place] [address], [place] [address] Jun, [facility] [address] [id number] [address] [place] [address] [address] Jun, [facility] [address] [id number] [address] [place] [address], [place] [address] Jun, [facility] [address] [id number] [address] [place] [address], [place] [address] Jun, [facility] [address] [id number] [address] [place] [address], [place] [address] Jun, [facility] [address] [id number] [address] [place] [address], [place] [address] 18 Jun, 2013 [facility] [address] [id number] [address] [place] [address], [place] [address] 18 Jun, 2013 [facility] [address] [id number] [address] [place] [address], [place] [address] Jun, [facility] [address] [id number] [address] [place] [address], [place] [address] 17 Jun, 2013 [facility] [address] [id number] [address] [place] [address], [place] [address] Jun, [facility] [address] [id number] [address] [place] [address], [place] [address] Jun, [facility] [address] [id number] [address] [place] [address], [place] [address] Jun, [facility] [address] [id number] [address] [place] [address], [place] [address] Jun, [facility] [address] [id number] [address] [place] [address], [place] [address] 05 Jun, 2013 [facility] [address] [id number] [address] [place] [address], [place] [address] 05 Jun, 2013 [facility] [address] [id number] [address] [place] [address], [place] [address] 04 Jun, 2013 [facility] [address] [id number] [address] [place] [address], [place] [address] 04 Jun, 2013 [facility] [address] [id number] [address] [place] [address], [place] [address] 17 May, 2013 [facility] [address] [id number] [address] [place] [address], [place] [address] 17 May, 2013 [facility] [address] [id number] [address] [place] [address], [place] [address] May, [facility] [address] [id number] [address] [place] [address], [place] [address] May, [facility] [address] [id number] [address] [place] [address], [place] [address] May, [facility] [address] [id number] [address] [place] [address], [place] [address] May, [facility] [address] [id number] [address] [place] [address], [place] [address] Apr, [facility] [address] [id number] [address] [place] [address], [place] [address] Apr, [facility] [address] [id number] [address] [place] [address], [place] [address] 30 Apr, 2013 [facility] [address] [id number] [address] [place] [address], [place] [address] 30 Apr, 2013 [facility] [address] [id number] [address] [place] [address], [place] [address] Apr, [facility] [address] [id number] [address] [place] [address], [place] [address] 15 Apr, 2013 [facility] [address] [id number] [address] [place] [address] 15 Apr, 2013 [facility] [address] [id number] [address] [place] [address], [place] [address] Apr, [facility] [address] [id number] [address] [place] [address], [place] [address] Mar, [facility] [address] [id number] [address] [place] [address] 24 Mar, 2013 [facility] [address] [id number] [address] [place] [address], [place] [address] 17 Mar, 2012 [facility] [address] [id number] [address] [place] [address], [place] [address] 17 Mar, 2013 [facility] [address] [id number] [address] [place] [address], [place] [address] 11 Mar, 2013 [facility] [address] [id number] [address] [place] [address], [place] [address] 10 Mar, 2013 [facility] [address] [id number] [address] [place] [address], [place] [address] 05 Mar, 2013 [facility] [address] [id number] [address] [place] [address], [place] [address] 04 Mar, 2013 [facility] [address] [id number] [address] [place] [address], [place] [address] Jan, [facility] [address] [id number] [address] [place] [address], [place] [address] Jan, [facility] [address] [id number] [address] [place] [address], [place] [address] Jan, [facility] [address] [id number] [address] [place] [address], [place] [address] Jan, [facility] [address] [id number] [address] [place] [address], [place] [address] Jan, [facility] [address] [id number] [address] [place] [address], [place] [address] Jan, [facility] [address] [id number] [address] [place] [address], [place] [address] Dec, [facility] [address] [id number] [address] [place] [address], [place] [address] Dec, [facility] [address] [id number] [address] [place] [address], [place] [address] Dec, [facility] [address] [id number] [address] [place] [address], [place] [address] Dec, [facility] [address] [id number] [address] [place] [address], [place] [address] 18 Dec, 2012 [facility] [address] [id number] [address] [place] [address], [place] [address] 17 Dec, 2012 [facility] [address] [id number] [address] [place] [address], [place] [address] 16 Dec, 2012 [facility] [address] [id number] [address] [place] [address], [place] [address] 16 Dec, 2012 [facility] [address] [id number] [address] [place] [address], [place] [address] 15 Dec, 2012 [facility] [address] [id number] [address] [place] [address], [place] [address] Dec, [facility] [address] [id number] [address] [place] [address], [place] [address] Dec, [facility] [address] [id number] [address] [place] [address], [place] [address] Dec, [facility] [address] [id number] [address] [place] [address], [place] [address] Dec, [facility] [address] [id number] [address] [place] [address], [place] [address] Dec, [facility] [address] [id number] [address] [place] [address], [place] [address] Dec, [facility] [address] [id number] [address] [place] [address], [place] [address] Dec, [facility] [address] [id number] [address] [place] [address], [place] [address] October, [facility] [address] [id number] [address] [place] [address], [place] [address] October, [facility] [address] [id number] [address] [place] [address], [place] [address] October, [facility] [address] [id number] [address] [place] [address], [place] [address] October, [facility] [address] [id number] [address] [place] [address], [place] [address] October, [facility] [address] [id number] [address] [place] [address], [place] [address] October, [facility] [address] [id number] [address] [place] [address], [place] [address] October, [facility] [address] [id number] [address] [place] [address], [place] [address] Oct, [facility] [address] [id number] [address] [place] [address], [place] [address] Oct, [facility] [address] [id number] [address] [place] [address], [place] [address] Oct, [facility] [address] [id number] [address] [place] [address], [place] [address] Oct, [facility] [address] [id number] [address] [place] [address], [place] [address] Oct, [facility] [address] [id number] [address] [place] [address], [place] [address] Oct, [facility] [address] [id number] [address] [place] [address], [place] [address] Oct, [facility] [address] [id number] [address] [place] [address], [place] [address] 15 Oct, 2012 [facility] [address] [id number] [address] [place] [address], [place] [address] Oct, [facility] [address] [id number] [address] [place] [address], [place] [address] Oct, [facility] [address] [id number] [address] [place] [address], [place] [address] Oct, [facility] [address] [id number] [address] [place] [address], [place] [address] Oct, [facility] [address] [id number] [address] [place] [address], [place] [address] Aug, [facility] [address] [id number] [address] [place] [address], [place] [address] Aug, [facility] [address] [id number] [address] [place] [address], [place] [address] Aug, [facility] [address] [id number] [address] [place] [address], [place] [address] Aug, [facility] [address] [id number] [address] [place] [address], [place] [address] Aug, [facility] [address] [id number] [address] [place] [address], [place] [address] Aug, [facility] [address] [id number] [address] [place] [address], [place] [address] Aug, [facility] [address] [id number] [address] [place] [address], [place] [address] 14 Aug, 2012 [facility] [address] [id number] [address] [place] [address], [place] [address] Aug, [facility] [address] [id number] [address] [place] [address], [place] [address] Aug, [facility] [address] [id number] [address] [place] [address], [place] [address] Jul, [facility] [address] [id number] [address] [place] [address], [place] [address] Jul, [facility] [address] [id number] [address] [place] [address], [place] [address] Jul, [facility] [address] [id number] [address] [place] [address], [place] [address] Jun, [facility] [address] [id number] [address] [place] [address], [place] [address] Jun, [facility] [address] [id number] [address] [place] [address], [place] [address] 18 Jun, 2012 [facility] [address] [id number] [address] [place] [address], [place] [address] 18 Jun, 2012 [facility] [address] [id number] [address] [place] [address], [place] [address] 18 Jun, 2012 [facility] [address] [id number] [address] [place] [address], [place] [address] 14 Jun, 2012 [facility] [address] [id number] [address] [place] [address], [place] [address] 14 Jun, 2012 [facility] [address] [id number] [address] [place] [address], [place] [address] 13 Jun, 2012 [facility] [address] [id number] [address] [place] [address], [place] [address] 13 Jun, 2012 [facility] [address] [id number] [address] [place] [address], [place] [address] 11 Jun, 2012 [facility] [address] [id number] [address] [place] [address], [place] [address] 11 Jun, 2012 [facility] [address] [id number] [address] [place] [address], [place] [address] 11 Jun, 2012 [facility] [address] [id number] [address] [place] [address], [place] [address] 11 Jun, 2012 [facility] [address] [id number] [address] [place] [address], [place] [address] 07 Jun, 2012 [facility] [address] [id number] [address] [place] [address], [place] [address] 07 Jun, 2012 [facility] [address] [id number] [address] [place] [address], [place] [address] 06 Jun, 2012 [facility] [address] [id number] [address] [place] [address], [place] [address] 06 Jun, 2012 [facility] [address] [id number] [address] [place] [address], [place] [address] Jun, [facility] [address] [id number] [address] [place] [address], [place] [address] Jun, [facility] [address] [id number] [address] [place] [address], [place] [address] Jun, [facility] [address] [id number] [address] [place] [address], [place] [address] Jun, [facility] [address] [id number] [address] [place] [address], [place] [address] Jun, [facility] [address] [id number] [address] [place] [address], [place] [address] Jun, [facility] [address] [id number] [address] [place] [address], [place] [address] May, [facility] [address] [id number] [address] [place] [address], [place] [address] May, [facility] [address] [id number] [address] [place] [address], [place] [address] May, [facility] [address] [id number] [address] [place] [address], [place] [address] May, [facility] [address] [id number] [address] [place] [address], [place] [address] May, [facility] [address] [id number] [address] [place] [address], [place] [address] May, [facility] [address] [id number] [address] [place] [address], [place] [address] May, [facility] [address] [id number] [address] [place] [address], [place] [address] May, [facility] [address] [id number] [address] [place] [address], [place] [address] Apr, [facility] [address] [id number] [address] [place] [address], [place] [address] Apr, [facility] [address] [id number] [address] [place] [address] Apr, [facility] [address] [id number] [address] [place] [address] Apr, [facility] [address] [id number] [address] [place] [address] Apr, [facility] [address] [id number] [address] [place] [address] Apr, [facility] [address] [id number] [address] [place] [id number] Apr, [facility] [address] [id number] [address] [place] [address], [place] [id number] Apr, [facility] [address] [id number] [address] [place] [id number] Apr, [facility] [address] [id number] [address] [place] [id number] Apr, [facility] [address] [id number] [address] [place] [phone] Apr, [facility] [address] [id number] [address] [place] [id number] Apr, [facility] [address] [id number] [address] [place] [id number] 19 Mar, 2012 [facility] [address] [id number] [address] [place] [id number] 18 Mar, 2012 [facility] [address] [id number] [address] [place] [id number] 12 Mar, 2012 [facility] [address] [id number] [address] [place] [id number] 12 Mar, 2012 [facility] [address] [id number] [address] [place] [id number] 12 Mar, 2012 [facility] [address] [id number] [address] [place] [id number] Mar, [facility] [address] [id number] [address] [place] [address], [place] [id number] Mar, [facility] [address] [id number] [address] [place] [address], [place] [id number] Jan, [facility] [address] [id number] [address] [place] [address], [place] [id number] Jan, [facility] [address] [id number] [address] [place] [address], [place] [id number] Jan, [facility] [address] [id number] [address] [place] [address], [place] [id number] Jan, [facility] [address] [id number] [address] [place] [address], [place] [id number] Jan, [facility] [address] [id number] [address] [place] [address], [place] [phone] Jan, [facility] [address] [id number] [address] [place] [address], [place] [id number] Jan, [facility] [address] [id number] [address] [place] [address], [place] [id number] Jan, [facility] [address] [id number] [address] [place] [address], [place] [id number] Jan, [facility] [address] [id number] [address] [place] [address], [place] [id number] Jan, [facility] [address] [id number] [address] [place] [address], [place] [id number] Jan, [facility] [address] [id number] [address] [place] [address], [place] [id number] Dec, [facility] [address] [id number] [address] [place] [address], [place] [id number] Dec, [facility] [address] [id number] [address] [place] [address], [place] [id number] Dec, [facility] [address] [id number] [address] [place] [address], [place] [id number] Dec, [facility] [address] [id number] [address] [place] [address], [place] [id number] 20 Jan, 2012 [facility] [address] [id number] [address] [place] [address], [place] [id number] 19 Jan, 2012 [facility] [address] [id number] [address] [place] [address], [place] [id number] 18 Jan, 2012 [facility] [address] [id number] [address] [place] [address], [place] [id number] 17 Jan, 2012 [facility] [address] [id number] [address] [place] [address], [place] [id number] 16 Jan, 2012 [facility] [address] [id number] [address] [place] [address], [place] [id number] Dec, [facility] [address] [id number] [address] [place] [address], [place] [address] Dec, [facility] [address] [id number] [address] [place] [address], [place] [id number] Dec, [facility] [address] [id number] [address] [place] [address], [place] [id number] Dec, [facility] [address] [id number] [address] [place] [address], [place] [id number] Dec, [facility] [address] [address] [id number] [address] [place] [address], [place] [address] Dec, [facility] [address] [id number] [address] [place] [address], [place] [address] Dec, [facility] [address] [id number] [address] [place] [address], [place] [id number] 15 Dec, 2011 [facility] [address] [id number] [address] [place] [address], [place] [address] 06 Dec, 2011 [facility] [address] [id number] [address] [place] [address], [place] [id number] 05 Dec, 2011 [facility] [address] [id number] [address] [place] [address], [place] [address] October, [facility] [address] [id number] [address] [place] [address], [place] [address] October, [facility] [address] [id number] [address] [place] [address], [place] [address] October, [facility] [address] [id number] [address] [place] [address], [place] [address] October, [facility] [address] [id number] [address] [place] [address], [place] [address] October, [facility] [address] [id number] [address] [place] [address], [place] [address] October, [facility] [address] [id number] [address] [place] [address], [place] [address] Oct, [facility] [address] [id number] [address] [place] [address], [place] [address] Oct, [facility] [address] [id number] [address] [place] [address], [place] [address] Oct, [facility] [address] [id number] [address] [place] [address], [place] [address] Oct, [facility] [address] [id number] [address] [place] [address], [place] [address] Oct, [facility] [address] [id number] [address] [place] [address], [place] [address] Oct, [facility] [address] [id number] [address] [place] [address], [place] [address] Oct, [facility] [address] [id number] [address] [place] [address], [place] [address] Aug, [facility] [address] [id number] [address] [place] [address], [place] [address] Aug, [facility] [address] [id number] [address] [place] [address], [place] [address] Aug, [facility] [address] [id number] [address] [place] [address], [place] [id number] 13 Sep, 2011 [facility] [address] [id number] [address] [place] [address], [place] [address] 05 Sep, 2011 [facility] [address] [id number] [address] [place] [address], [place] [address] 05 Sep, 2011 [facility] [address] [id number] [address] [place] [address], [place] [address] 27 Aug, 2011 [facility] [address] [id number] [address] [place] [address], [place] [address] Aug, [facility] [address] [id number] [address] [place] [address], [place] [address] 08 Aug, 2011 [facility] [address] [id number] [address] [place] [address], [place] [address] Jul, [facility] [address] [id number] [address] [place] [address], [place] [address] Jul, [facility] [address] [id number] [address] [place] [address], [place] [address] Jul, [facility] [address] [id number] [address] [place] [address], [place] [address] Jul, [facility] [address] [id number] [address] [place] [address], [place] [address] Jun, [facility] [address] [id number] [address] [place] [address], [place] [address] Jun, [facility] [address] [id number] [address] [place] [address], [place] [address] May, [facility] [address] [id number] [address] [place] [address], [place] [address] May, [facility] [address] [id number] [address] [place] [address], [place] [address] May, [facility] [address] [id number] [address] [place] [address], [place] [address] May, [facility] [address] [id number] [address] [place] [phone] May, [facility] [address] [id number] [address] [place] [phone] Apr, [facility] [address] [id number] [address] [place] [phone] Apr, [facility] [address] [id number] [address] [place] [id number] Apr, [facility] [address] [id number] [address] [place] [phone] Jan, [facility] [address] [id number] [address] [place] [phone] Dec, [facility] [address] [id number] [address] [place] [phone] October, [facility] [address] [id number] [address] [place] [id number] Jun, [facility] [address] [id number] [address] [place] [phone] Apr, [facility] [address] [id number] [address] [place] [phone] Apr, [facility] [address] [id number] [address] [place] [phone] Apr, [facility] [address] [id number] [address] [place] [phone] Jun, IMMUNIZATIONS No Known Immunizations SOCIAL HISTORY Never Assessed REASON FOR VISIT Refill request PLAN OF CARE VITAL SIGNS MEDICATIONS Unknown Medications RESULTS No Results PROCEDURES No Known procedures INSTRUCTIONS MEDICATIONS ADMINISTERED No Known Medications MEDICAL (GENERAL) HISTORY Type Description Date Medical History Psychiatric disorder Medical History Hard of hearing Surgical History Neofibrous tumor Surgical History back injection Hospitalization History Intestinal blockage Hospitalization History past psychiatric hospitalizations x2
--- OUTSIDE RECORDS SUMMARY | 2020-01-25 13:12 | XMS REPORT ---
Author Author Ana ESCAMILLA KWAME [facility] Address [address] [place] [address] Care Team Providers Care Cream Tester Name Role Phone FRANCINE, KWAME Unavailable PROBLEMS Type Condition ICD9-CM Code HLE50-WC Code Onset Dates Condition S tatus SNOMED Code Problem Attention deficit R41.840 Active 76 706000 Problem Cannabis abuse F12.10 Active 51920 009 Problem Chronic hepatitis C without hepatic coma B18.2 Active 745496606 Problem Attention deficit hyperactivity disorder (ADHD), combi luciano type F90.2 Active 69512933 Problem Bipolar disorder, in partial remission, most rec ent episode hypomanic F31.71 Active 732219926 Problem H/O laminectomy Z98.89 Active 1616 44165 Problem Bipolar 1 disorder F31.9 Active 3 70429795 Problem Anxiety disorder, unspecified type F41.9 Active 155170410 Problem Other chronic pain G89.29 Active 8 [id number] ALLERGIES No Information ENCOUNTERS Encounter Location Date Diagnosis [facility] [address] [facility] [id number] [address] [place] [address] Apr, [facility] [address] [facility] [id number] [address] [place] [phone] Mar, [facility] [address] [facility] [id number] [address] [place] [address] Jan, Bipolar disorder, in partial remission, most recent episode hypomanic F31.71 [facility] [address] [facility] [id number] [address] [place] [address] Dec, Bipolar disorder, in partial remission, most recent episode hypomanic F31.71 [facility] [address] [facility] [id number] [address] [place] [phone] Dec, Bipolar disorder, in partial remission, most recent episode hypomanic F31.71 ; Attention deficit hyperactivity disorder (ADHD), combined type F90.2 ; Anxiety disorder, unspecified type F41.9 and Other fdc (current) drug therapy Z79.899 [facility] [address] [id number] [address] [place] [address] Dec, Bipolar disorder, in partial remission, most recent episode hypomanic F31.71 [facility] [address] [id number] [address] [place] [address] Dec, Bipolar disorder, in partial remission, most recent episode hypomanic F31.71 [facility] [address] [id number] [address] [place] [address] October, Bipolar disorder, in partial remission, most recent episode hypomanic F31.71 [facility] [address] [id number] [address] [place] [address] October, [facility] [address] [id number] [address] [place] [address] October, [facility] [address] [id number] [address] [place] [address] Oct, Bipolar disorder, in partial remission, most recent episode hypomanic F31.71 ; Attention deficit hyperactivity disorder (ADHD), combined type F90.2 ; Anxiety disorder, unspecified type F41.9 and Encounter for drug screening Z02.83 [facility] [address] [id number] [address] [place] [address] Oct, Bipolar disorder, in partial remission, most recent episode hypomanic F31.71 [facility] [address] [id number] [address] [place] [address] Oct, Bipolar disorder, in partial remission, most recent episode hypomanic F31.71 [facility] [address] [id number] [address] [place] [address] Aug, Bipolar disorder, in partial remission, most recent episode hypomanic F31.71 [facility] [address] [id number] [address] [place] [phone] 15 Aug, 2017 Bipolar disorder, in partial remission, most recent episode hypomanic F31.71 [facility] [address] [id number] [address] [place] [address] Aug, Bipolar disorder, in partial remission, most recent episode hypomanic F31.71 [facility] [address] [id number] [address] [place] [address] Jul, Bipolar disorder, in partial remission, most recent episode hypomanic F31.71 ; Attention deficit hyperactivity disorder (ADHD), combined type F90.2 and Anxiety disorder, unspecified type F41.9 [facility] [address] [id number] [address] [place] [address] Jul, Bipolar disorder, in partial remission, most recent episode hypomanic F31.71 [facility] [address] [id number] [address] [place] [phone] Jun, Bipolar disorder, in partial remission, most recent episode hypomanic F31.71 [facility] [address] [id number] [address] [place] [address] May, Bipolar disorder, in partial remission, most recent episode hypomanic F31.71 [facility] [address] [facility] [id number] [address] [place] [address] May, Bipolar disorder, in partial remission, most recent episode hypomanic F31.71 [facility] [address] [facility] [id number] [address] [place] [address] Apr, [facility] [address] [id number] [address] [place] [address] Apr, Bipolar disorder, in partial remission, most recent episode hypomanic F31.71 ; Attention deficit hyperactivity disorder (ADHD), combined type F90.2 ; Anxiety disorder, unspecified type F41.9 [address] Cann[address] F12.10 [facility] [address] [id number] [address] [place] [address] Apr, Attention deficit hyperactiv ity disorder (ADHD), combined type F90.2 [facility] [address] [id number] [place] [address] 21 Mar, 2017 Attention deficit hyperactiv ity disorder (ADHD), combined type F90.2 [facility] [address] [id number] [facility] [place] [address] 14 Mar, 2017 Anxiety disorder, unspecifie d type F41.9 [facility] [address] [id number] [address] [place] [phone] 18 Jan, 2017 Attention deficit hyperactiv ity disorder (ADHD), combined type F90.2 [facility] [address] [id number] [address] [place] [address] Jan, Anxiety disorder, unspecifie d type F41.9 [facility] [address] [id number] [address] [place] [address] Jan, Other chronic pain G89.29 ; Chronic hepatitis C without hepatic coma B18.2 and Bipolar [address] [facility] [address] [id number] [address] [place] [address] Dec, Attention deficit hyperactiv ity disorder (ADHD), combined type F90.2 [facility] [address] [id number] [address] [place] [address], [place] [address] 24 Dec, 2016 Bipolar disorder, in partial remission, most recent episode hypomanic F31.71 ; Attention deficit hyperactivity disorder (ADHD), combined type F90.2 and Anxiety disorder, unspecified type F41.9 [facility] [address] [id number] [address] [place] [address], [place] [address] 28 Dec, 2016 Bipolar disorder, in partial remission, most recent episode hypomanic F31.71 ; Attention deficit hyperactivity disorder (ADHD), combined type F90.2 and Anxiety disorder, unspecified type F41.9 [facility] [address] [id number] [address] [place] [address], [place] [address] Dec, Bipolar 1 disorder F31.9 and Attention deficit R41.840 [facility] [address] [id number] [address] [place] [address] Oct, Other chronic pain G89.29 ; Alopecia L65.9 and Screening, lipid Z13.220 [facility] [address] [id number] [address] [place] [address] Oct, [facility] [address] [id number] [address] [place] [address] Aug, [facility] [address] [id number] [address] [place] [address] Aug, Eustachian tube dysfunction, right H69.81 ; Vertigo R42 and Other chronic pain G89.29 [facility] [address] [id number] [address] [place] [address] Aug, [facility] [address] [facility] [id number] [address] [place] [address] Jun, [facility] [address] [facility] [id number] [address] [place] [address] Jun, Low back pain M54.5 and Othe r chronic pain G89.29 [facility] [address] [id number] [address] [place] [address] Jun, [facility] [address] [id number] [address] [place] [phone] May, [facility] [address] [facility] [id number] [address] [place] [phone] Jan, [facility] [address] [id number] [address] [place] [phone] Dec, [facility] [address] [facility] [id number] [address] [place] [address] Dec, [facility] [address] [facility] [id number] [address] [place] [phone] Jun, [facility] [address] [facility] [id number] [address] [place] [address] Apr, Eustachian tube dysfunction, unspecified laterality H69.80 ; Hot flashes N95.1 and Encounter for immunization Z23 [facility] [address] [facility] [id number] [address] [place] [address] Jan, [facility] [address] [facility] [id number] [address] [place] [address] Jan, [facility] [address] [facility] [id number] [address] [place] [address] Jan, [facility] [address] [facility] [id number] [address] [place] [phone] Jan, [facility] [address] [place] [id number] [place] [address] Jan, Encounter to establish care V65.8 ; Bipolar 1 disorder 296.7 ; Abdominal pain 789.00 ; Constipation 564.00 ; Hard of hearing 389.[address] [facility] [address] [facility] [id number] [address] [place] [address] Dec, [facility] [address] [facility] [id number] [address] [place] [address] October, [facility] [address] [place] [id number] [address] [place] [phone] October, [facility] [address] [facility] [id number] [address] [place] [phone] Oct, [facility] [address] [facility] [id number] [address] [place] [phone] Oct, [facility] [address] [facility] [id number] [address] [place] [phone] Oct, [facility] [address] [facility] [id number] [address] [place] [phone] Aug, [facility] [address] [facility] [id number] [address] [place] [phone] Aug, [facility] [address] [id number] [address] [place] [address], [place] [address] Aug, [facility] [address] [id number] [address] [place] [address], [place] [address] Aug, 2014 [facility] [address] [id number] [address] [place] [address], [place] [address] Aug, 2014 [facility] [address] [id number] [address] [place] [address], [place] [address] Aug, 2014 [facility] [address] [id number] [address] [place] [address], [place] [address] Aug, 2014 [facility] [address] [id number] [address] [place] [address], [place] [address] Aug, 2014 [facility] [address] [id number] [address] [place] [address], [place] [address] Aug, 2014 [facility] [address] [id number] [address] [place] [address], [place] [address] Aug, 2014 [facility] [address] [id number] [address] [place] [address], [place] [address] Aug, 2014 [facility] [address] [id number] [address] [place] [address], [place] [address] Aug, [facility] [address] [id number] [address] [place] [phone] Aug, 2014 [facility] [address] [id number] [address] [place] [phone] Aug, 2014 [facility] [address] [id number] [address] [place] [address], [place] [address] Aug, [facility] [address] [id number] [address] [place] [address], [place] [address] Jul, [facility] [address] [id number] [address] [place] [address] Jul, [facility] [address] [id number] [address] [place] [phone] Jul, [facility] [address] [id number] [address] [place] [address], [place] [address] Jul, [facility] [address] [id number] [address] [place] [address], [place] [address] Jul, [facility] [address] [id number] [address] [place] [address], [place] [address] Jul, [facility] [address] [id number] [address] [place] [address], [place] [address] Jul, [facility] [address] [id number] [address] [place] [address], [place] [address] Jul, [facility] [address] [id number] [address] [place] [address], [place] [address] Jun, [facility] [address] [id number] [address] [place] [address], [place] [address] Jun, [facility] [address] [id number] [address] [place] [address], [place] [address] Jun, [facility] [address] [id number] [address] [place] [address], [place] [address] Jun, [facility] [address] [id number] [address] [place] [address], [place] [address] Jun, [facility] [address] [id number] [address] [place] [address], [place] [address] Jun, [facility] [address] [id number] [address] [place] [address], [place] [address] Jun, [facility] [address] [id number] [address] [place] [address], [place] [address] Jun, [facility] [address] [id number] [address] [place] [address], [place] [address] Jun, [facility] [address] [id number] [address] [place] [address], [place] [address] Jun, [facility] [address] [id number] [address] [place] [address], [place] [address] Jun, [facility] [address] [id number] [address] [place] [address], [place] [address] May, [facility] [address] [id number] [address] [place] [address], [place] [address] May, [facility] [address] [id number] [address] [place] [address], [place] [address] May, [facility] [address] [id number] [address] [place] [address], [place] [address] May, [facility] [address] [id number] [address] [place] [address], [place] [address] May, [facility] [address] [id number] [address] [place] [address], [place] [address] May, [facility] [address] [id number] [address] [place] [address], [place] [address] May, [facility] [address] [id number] [address] [place] [address], [place] [address] Apr, [facility] [address] [id number] [address] [place] [address], [place] [address] Apr, [facility] [address] [id number] [address] [place] [address], [place] [address] Apr, [facility] [address] [id number] [address] [place] [address], [place] [address] Apr, [facility] [address] [id number] [address] [place] [address], [place] [address] Apr, [facility] [address] [id number] [address] [place] [address], [place] [address] Apr, [facility] [address] [id number] [address] [place] [address], [place] [address] Mar, [facility] [address] [id number] [address] [place] [address], [place] [address] Mar, [facility] [address] [id number] [address] [place] [address], [place] [address] Mar, [facility] [address] [id number] [address] [place] [address], [place] [address] Mar, [facility] [address] [id number] [address] [place] [address], [place] [address] Mar, [facility] [address] [id number] [address] [place] [address], [place] [address] Mar, [facility] [address] [id number] [address] [place] [address], [place] [address] Jan, [facility] [address] [id number] [address] [place] [address], [place] [address] Jan, [facility] [address] [id number] [address] [place] [address], [place] [address] Jan, [facility] [address] [id number] [address] [place] [address], [place] [address] Jan, [facility] [address] [id number] [address] [place] [address], [place] [address] Dec, [facility] [address] [id number] [address] [place] [address], [place] [address] Dec, [facility] [address] [id number] [address] [place] [address], [place] [address] Dec, [facility] [address] [id number] [address] [place] [address], [place] [address] Dec, [facility] [address] [id number] [address] [place] [address], [place] [address] Dec, [facility] [address] [id number] [address] [place] [address], [place] [address] Dec, [facility] [address] [id number] [address] [place] [address], [place] [address] Dec, [facility] [address] [id number] [address] [place] [address], [place] [address] Dec, [facility] [address] [id number] [address] [place] [address], [place] [address] Dec, [facility] [address] [id number] [address] [place] [address], [place] [address] Dec, [facility] [address] [id number] [address] [place] [address], [place] [address] Dec, [facility] [address] [id number] [address] [place] [address], [place] [address] Dec, [facility] [address] [id number] [address] [place] [address], [place] [address] October, [facility] [address] [id number] [address] [place] [address], [place] [address] October, [facility] [address] [id number] [address] [place] [address], [place] [address] October, [facility] [address] [id number] [address] [place] [address], [place] [address] October, [facility] [address] [id number] [address] [place] [address], [place] [address] October, [facility] [address] [id number] [address] [place] [address], [place] [address] October, [facility] [address] [id number] [address] [place] [address], [place] [address] Oct, [facility] [address] [id number] [address] [place] [address], [place] [address] Oct, [facility] [address] [id number] [address] [place] [address], [place] [address] Oct, [facility] [address] [id number] [address] [place] [address], [place] [address] Oct, [facility] [address] [id number] [address] [place] [address], [place] [address] Oct, [facility] [address] [id number] [address] [place] [address] Oct, [facility] [address] [id number] [address] [place] [address] Oct, [facility] [address] [id number] [address] [place] [address] Oct, [facility] [address] [id number] [address] [place] [address] Oct, [facility] [address] [id number] [address] [place] [address] Oct, [facility] [address] [id number] [address] [place] [address], [place] [address] Oct, [facility] [address] [id number] [address] [place] [address], [place] [address] Oct, [facility] [address] [id number] [address] [place] [address], [place] [id number] 15 Aug, 2013 [facility] [address] [id number] [address] [place] [address], [place] [address] 15 Aug, 2013 [facility] [address] [id number] [address] [place] [address], [place] [id number] Aug, [facility] [address] [id number] [address] [place] [address], [place] [address] Aug, [facility] [address] [id number] [address] [place] [address], [place] [address] 05 Aug, 2013 [facility] [address] [id number] [address] [place] [address], [place] [id number] 05 Aug, 2013 [facility] [address] [id number] [address] [place] [address], [place] [address] 04 Aug, 2013 [facility] [address] [id number] [address] [place] [address], [place] [id number] 03 Aug, 2013 [facility] [address] [id number] [address] [place] [address], [place] [address] Aug, [facility] [address] [id number] [address] [place] [address], [place] [id number] Aug, [facility] [address] [id number] [address] [place] [address], [place] [address] 24 Aug, 2013 [facility] [address] [id number] [address] [place] [address], [place] [address] Aug, [facility] [address] [id number] [address] [place] [address], [place] [id number] Aug, 2013 [facility] [address] [id number] [address] [place] [address], [place] [id number] 20 Aug, 2013 [facility] [address] [id number] [address] [place] [address], [place] [id number] 14 Aug, 2013 [facility] [address] [id number] [address] [place] [address], [place] [id number] Aug, [facility] [address] [id number] [address] [place] [address], [place] [address] 14 Aug, 2013 [facility] [address] [id number] [address] [place] [address], [place] [address] 14 Aug, 2013 [facility] [address] [id number] [address] [place] [address], [place] [id number] 07 Aug, 2013 [facility] [address] [id number] [address] [place] [address], [place] [id number] 07 Aug, 2013 [facility] [address] [id number] [address] [place] [address], [place] [id number] 06 Aug, 2013 [facility] [address] [id number] [address] [place] [address], [place] [id number] Aug, 2013 [facility] [address] [id number] [address] [place] [address], [place] [id number] Aug, 2013 [facility] [address] [id number] [address] [place] [address], [place] [id number] 04 Aug, 2013 [facility] [address] [id number] [address] [place] [address], [place] [id number] Aug, [facility] [address] [id number] [address] [place] [address], [place] [id number] Jul, [facility] [address] [id number] [address] [place] [address], [place] [address] Jul, [facility] [address] [id number] [address] [place] [address], [place] [id number] Jul, [facility] [address] [id number] [address] [place] [address], [place] [id number] Jul, [facility] [address] [id number] [address] [place] [address], [place] [address] Jul, [facility] [address] [id number] [address] [place] [address], [place] [address] Jul, [facility] [address] [id number] [address] [place] [address], [place] [address] Jul, [facility] [address] [id number] [address] [place] [address], [place] [address] Jul, [facility] [address] [id number] [address] [place] [address], [place] [address] Jul, [facility] [address] [id number] [address] [place] [address], [place] [address] Jul, [facility] [address] [id number] [address] [place] [address], [place] [address] Jul, [facility] [address] [id number] [address] [place] [address], [place] [address] Jul, [facility] [address] [id number] [address] [place] [address], [place] [address] Jul, [facility] [address] [id number] [address] [place] [address], [place] [address] Jul, [facility] [address] [id number] [address] [place] [id number] 07 Jul, 2013 [facility] [address] [id number] [address] [place] [address], [place] [address] Jul, [facility] [address] [id number] [address] [place] [address], [place] [address] Jul, [facility] [address] [id number] [address] [place] [address], [place] [address] Jul, [facility] [address] [id number] [address] [place] [address], [place] [id number] Jul, [facility] [address] [id number] [address] [place] [address], [place] [id number] Jul, [facility] [address] [id number] [address] [place] [address], [place] [address] Jun, [facility] [address] [id number] [address] [place] [address], [place] [address] Jun, [facility] [address] [id number] [address] [place] [address], [place] [address] Jun, [facility] [address] [id number] [address] [place] [address], [place] [address] Jun, [facility] [address] [id number] [address] [place] [address], [place] [address] Jun, [facility] [address] [id number] [address] [place] [address], [place] [address] Jun, [facility] [address] [id number] [address] [place] [address], [place] [address] Jun, [facility] [address] [id number] [address] [place] [address], [place] [address] Jun, [facility] [address] [id number] [address] [place] [address], [place] [id number] 24 Jun, 2013 [facility] [address] [id number] [address] [place] [address], [place] [address] Jun, [facility] [address] [id number] [address] [place] [address], [place] [address] 23 Jun, 2013 [facility] [address] [id number] [address] [place] [address], [place] [id number] Jun, [facility] [address] [id number] [address] [place] [address], [place] [address] Jun, [facility] [address] [id number] [address] [place] [address], [place] [id number] Jun, [facility] [address] [id number] [address] [place] [address], [place] [address] Jun, [facility] [address] [id number] [address] [place] [address], [place] [id number] 18 Jun, 2013 [facility] [address] [id number] [address] [place] [address], [place] [address] 18 Jun, 2013 [facility] [address] [id number] [address] [place] [address], [place] [id number] 17 Jun, [address] [facility] [address] [id number] [address] [place] [address], [place] [address] 17 Jun, 2013 [facility] [address] [id number] [address] [place] [address], [place] [address] 13 Jun, [address] [facility] [address] [id number] [address] [place] [address], [place] [address] 12 Jun, 2013 [facility] [address] [id number] [address] [place] [address], [place] [address] 12 Jun, 2013 [facility] [address] [id number] [address] [place] [address], [place] [address] 09 Jun, 2013 [facility] [address] [id number] [address] [place] [address], [place] [address] 05 Jun, [address] [facility] [address] [id number] [address] [place] [address], [place] [address] 05 Jun, 2013 [facility] [address] [id number] [address] [place] [place] [address] [address] Jun, [facility] [address] [id number] [address] [place] [address], [place] [address] Jun, [facility] [address] [id number] [address] [place] [address], [place] [address] May, [facility] [address] [id number] [address] [place] [address], [place] [address] May, [facility] [address] [id number] [address] [place] [id number] May, [facility] [address] [id number] [address] [place] [address], [place] [address] May, [facility] [address] [id number] [address] [place] [id number] May, [facility] [address] [id number] [address] [place] [address], [place] [address] May, [facility] [address] [id number] [address] [place] [address] Apr, [facility] [address] [id number] [address] [place] [id number] Apr, [facility] [address] [id number] [address] [place] [address] Apr, [facility] [address] [id number] [address] [place] [id number] 30 Apr, 2013 [facility] [address] [id number] [address] [place] [id number] Apr, [facility] [address] [id number] [address] [place] [address] Apr, [facility] [address] [id number] [address] [place] [id number] Apr, [facility] [address] [id number] [address] [place] [address] Apr, [facility] [address] [id number] [address] [place] [address], [place] [address] 26 Mar, 2012 [facility] [address] [id number] [address] [place] [address], [place] [address] 24 Mar, 2012 [facility] [address] [id number] [address] [place] [address], [place] [address] 17 Mar, 2012 [facility] [address] [id number] [address] [place] [address], [place] [address] 17 Mar, 2012 [facility] [address] [id number] [address] [place] [address], [place] [address] 11 Mar, 2012 [facility] [address] [id number] [address] [place] [address], [place] [address] 10 Mar, 2012 [facility] [address] [id number] [address] [place] [address], [place] [id number] 05 Mar, 2012 [facility] [address] [id number] [address] [place] [address], [place] [id number] 04 Mar, 2012 [facility] [address] [id number] [address] [place] [address], [place] [address] 20 Jan, 2013 [facility] [address] [id number] [address] [place] [address], [place] [address] 19 Jan, 2013 [facility] [address] [id number] [address] [place] [address], [place] [address] 14 Jan, 2013 [facility] [address] [id number] [address] [place] [address], [place] [address] Jan, [facility] [address] [id number] [address] [place] [address], [place] [address] Jan, [facility] [address] [id number] [address] [place] [address], [place] [id number] 05 Jan, 2013 [facility] [address] [id number] [address] [place] [address], [place] [address] Dec, [facility] [address] [id number] [address] [place] [address], [place] [address] Dec, [facility] [address] [id number] [address] [place] [address], [place] [id number] Dec, [facility] [address] [id number] [address] [place] [address], [place] [address] Dec, [facility] [address] [id number] [address] [place] [address], [place] [address] Dec, [facility] [address] [id number] [address] [place] [address], [place] [address] Dec, [facility] [address] [id number] [address] [place] [address], [place] [address] Dec, [facility] [address] [id number] [address] [place] [address], [place] [address] Dec, [facility] [address] [id number] [address] [place] [address], [place] [id number] Dec, [facility] [address] [id number] [address] [place] [address], [place] [id number] Dec, [facility] [address] [id number] [address] [place] [address], [place] [address] Dec, [facility] [address] [id number] [address] [place] [address], [place] [address] Dec, [facility] [address] [id number] [address] [place] [address], [place] [id number] Dec, [facility] [address] [id number] [address] [place] [address], [place] [address] Dec, [facility] [address] [id number] [address] [place] [address], [place] [address] Dec, [facility] [address] [id number] [address] [place] [address], [place] [address] Dec, [facility] [address] [id number] [address] [place] [address], [place] [address] October, [facility] [address] [id number] [address] [place] [address], [place] [address] October, [facility] [address] [id number] [address] [place] [address], [place] [address] October, [facility] [address] [id number] [address] [place] [address], [place] [address] October, [facility] [address] [id number] [address] [place] [address], [place] [address] October, [facility] [address] [id number] [address] [place] [address], [place] [address] October, [facility] [address] [id number] [address] [place] [address], [place] [address] October, [facility] [address] [id number] [address] [place] [address], [place] [id number] Oct, [facility] [address] [id number] [address] [place] [address], [place] [address] Oct, [facility] [address] [id number] [address] [place] [address], [place] [id number] Oct, [facility] [address] [id number] [address] [place] [address], [place] [id number] Oct, [facility] [address] [id number] [address] [place] [address], [place] [address] Oct, [facility] [address] [id number] [address] [place] [address], [place] [id number] 18 Oct, 2012 [facility] [address] [id number] [address] [place] [address], [place] [id number] 17 Oct, 2012 [facility] [address] [id number] [address] [place] [address], [place] [address] 15 Oct, 2012 [facility] [address] [id number] [address] [place] [address], [place] [address] 12 Oct, 2012 [facility] [address] [id number] [address] [place] [address], [place] [id number] Oct, [facility] [address] [id number] [address] [place] [address], [place] [address] Oct, [facility] [address] [id number] [address] [place] [address], [place] [address] Oct, [facility] [address] [id number] [address] [place] [address], [place] [address] Aug, [facility] [address] [id number] [address] [place] [address], [place] [address] Aug, [facility] [address] [id number] [address] [place] [address], [place] [address] Aug, [facility] [address] [id number] [address] [place] [address], [place] [address] Aug, [facility] [address] [id number] [address] [place] [address], [place] [address] Aug, [facility] [address] [id number] [address] [place] [address], [place] [address] Aug, [facility] [address] [id number] [address] [place] [address], [place] [address] Aug, [facility] [address] [id number] [address] [place] [address], [place] [address] Aug, [facility] [address] [id number] [address] [place] [address], [place] [address] Aug, [facility] [address] [id number] [address] [place] [address], [place] [address] Aug, [facility] [address] [id number] [address] [place] [address], [place] [address] Jul, [facility] [address] [id number] [address] [place] [address], [place] [address] Jul, [facility] [address] [id number] [address] [place] [address], [place] [id number] Jul, [facility] [address] [id number] [address] [place] [address] [address] 20 Jun, 2012 [facility] [address] [id number] [address] [place] [address], [place] [address] 18 Jun, 2012 [facility] [address] [id number] [address] [place] [address], [place] [id number] 18 Jun, 2012 [facility] [address] [id number] [address] [place] [address], [place] [address] 18 Jun, 2012 [facility] [address] [id number] [address] [place] [address], [place] [address] 18 Jun, 2012 [facility] [address] [id number] [address] [place] [address], [place] [address] 14 Jun, 2012 [facility] [address] [id number] [address] [place] [address], [place] [address] 14 Jun, 2012 [facility] [address] [id number] [address] [place] [address], [place] [address] 13 Jun, 2012 [facility] [address] [id number] [address] [place] [address], [place] [address] 13 Jun, 2012 [facility] [address] [id number] [address] [place] [address], [place] [id number] 11 Jun, 2012 [facility] [address] [id number] [address] [place] [address], [place] [id number] 11 Jun, 2012 [facility] [address] [id number] [address] [place] [address], [place] [id number] 11 Jun, 2012 [facility] [address] [id number] [address] [place] [address], [place] [address] 11 Jun, 2012 [facility] [address] [id number] [address] [place] [address], [place] [id number] 07 Jun, 2012 [facility] [address] [id number] [address] [place] [address], [place] [address] 07 Jun, 2012 [facility] [address] [id number] [address] [place] [address], [place] [id number] 06 Jun, 2012 [facility] [address] [id number] [address] [place] [address], [place] [id number] 06 Jun, 2012 [facility] [address] [id number] [address] [place] [address], [place] [address] Jun, [facility] [address] [id number] [address] [place] [address], [place] [address] Jun, [facility] [address] [id number] [address] [place] [address], [place] [address] Jun, [facility] [address] [id number] [address] [place] [address], [place] [address] Jun, [facility] [address] [id number] [address] [place] [address], [place] [address] Jun, [facility] [address] [id number] [address] [place] [address], [place] [address] Jun, [facility] [address] [id number] [address] [place] [address], [place] [address] May, [facility] [address] [id number] [address] [place] [address], [place] [id number] May, [facility] [address] [id number] [address] [place] [address], [place] [address] May, [facility] [address] [id number] [address] [place] [address], [place] [id number] May, [facility] [address] [id number] [address] [place] [address], [place] [id number] May, [facility] [address] [id number] [address] [place] [address], [place] [address] May, [facility] [address] [id number] [address] [place] [address], [place] [address] May, [facility] [address] [id number] [address] [place] [address], [place] [address] May, [facility] [address] [id number] [address] [place] [address], [place] [address] Apr, [facility] [address] [id number] [address] [place] [address], [place] [id number] 30 Apr, 2012 [facility] [address] [id number] [address] [place] [address], [place] [id number] 29 Apr, 2012 [facility] [address] [id number] [address] [place] [address], [place] [id number] Apr, [facility] [address] [id number] [address] [place] [address], [place] [address] Apr, [facility] [address] [id number] [address] [place] [address], [place] [address] Apr, [facility] [address] [id number] [address] [place] [address], [place] [id number] Apr, [facility] [address] [id number] [address] [place] [address], [place] [address] Apr, [facility] [address] [id number] [address] [place] [address], [place] [address] Apr, [facility] [address] [id number] [address] [place] [address], [place] [id number] Apr, [facility] [address] [id number] [address] [place] [id number] 04 Apr, 2012 [facility] [address] [id number] [address] [place] [id number] Apr, [facility] [address] [id number] [address] [place] [id number] 19 Mar, 2012 [facility] [address] [id number] [address] [place] [address], [place] [id number] 18 Sep2011 [facility] [address] [id number] [address] [place] [id number] 12 Mar, 2012 [facility] [address] [id number] [address] [place] [id number] 12 Mar, 2012 [facility] [address] [id number] [address] [place] [id number] Mar, [facility] [address] [id number] [place] [id number] Mar, [facility] [address] [id number] [address] [place] [id number] Mar, [facility] [address] [id number] [address] [place] [address], [place] [id number] Jan, [facility] [address] [id number] [address] [place] [id number] Jan, [facility] [address] [id number] [address] [place] [id number] Jan, [facility] [address] [id number] [address] [place] [id number] Jan, [facility] [address] [id number] [address] [place] [id number] Jan, [facility] [address] [id number] [address] [place] [id number] Jan, [facility] [address] [id number] [address] [place] [address], [place] [address] Jan, [facility] [address] [id number] [address] [place] [address], [place] [id number] Jan, [facility] [address] [id number] [address] [place] [address], [place] [id number] Jan, [facility] [address] [id number] [address] [place] [id number] Jan, [facility] [address] [id number] [address] [place] [address], [place] [address] Jan, [facility] [address] [id number] [address] [place] [address], [place] [id number] Dec, [facility] [address] [id number] [address] [place] [address], [place] [id number] Dec, [facility] [address] [id number] [facility] [place] [id number] 26 Jan, 2012 [facility] [address] [id number] [address] [place] [address], [place] [id number] 26 Dec, 2011 [facility] [address] [id number] [address] [place] [address], [place] [id number] 20 Jan, 2012 [facility] [address] [id number] [address] [place] [address], [place] [id number] 19 Dec, 2011 [facility] [address] [id number] [address] [place] [address], [place] [id number] 18 Jan, 2012 [facility] [address] [id number] [address] [place] [address], [place] [id number] 17 Jan, 2012 [facility] [address] [id number] [address] [place] [address], [place] [id number] 16 Jan, 2012 [facility] [address] [id number] [address] [place] [address], [place] [id number] 13 Jan, 2012 [facility] [address] [id number] [address] [place] [address], [place] [id number] 13 Jan, 2012 [facility] [address] [id number] [address] [place] [address], [place] [id number] 02 Jan, 2012 [facility] [address] [id number] [address] [place] [address], [place] [id number] 27 Dec, 2011 [facility] [address] [id number] [address] [place] [address], [place] [id number] 27 Dec, 2011 [facility] [address] [id number] [address] [place] [address], [place] [id number] 25 Dec, 2011 [facility] [address] [id number] [address] [place] [address], [place] [id number] 18 Dec, 2011 [facility] [address] [id number] [address] [place] [address], [place] [id number] 15 Dec, 2011 [facility] [address] [id number] [address] [place] [address], [place] [id number] Dec, [facility] [address] [id number] [address] [place] [address], [place] [id number] Dec, [facility] [address] [id number] [address] [place] [address], [place] [id number] October, [facility] [address] [id number] [address] [place] [address], [place] [id number] October, [facility] [address] [id number] [address] [place] [address], [place] [id number] October, [facility] [address] [id number] [address] [place] [address], [place] [id number] October, [facility] [address] [id number] [address] [place] [address], [place] [id number] October, [facility] [address] [id number] [address] [place] [address], [place] [id number] October, [facility] [address] [id number] [address] [place] [address], [place] [id number] Oct, [facility] [address] [id number] [address] [place] [address], [place] [id number] Oct, [facility] [address] [id number] [address] [place] [address], [place] [id number] Oct, [facility] [address] [id number] [address] [place] [address], [place] [id number] Oct, [facility] [address] [id number] [address] [place] [address], [place] [id number] Oct, [facility] [address] [id number] [address] [place] [address], [place] [id number] Oct, [facility] [address] [id number] [address] [place] [address], [place] [id number] Oct, [facility] [address] [id number] [address] [place] [address], [place] [id number] Aug, [facility] [address] [id number] [address] [place] [address], [place] [id number] 29 Sep, 2011 [facility] [address] [id number] [address] [place] [address], [place] [id number] Aug, [facility] [address] [id number] [address] [place] [address], [place] [id number] Aug, [facility] [address] [id number] [address] [place] [address], [place] [id number] Aug, [facility] [address] [id number] [address] [place] [address], [place] [id number] 05 Sep, 2011 [facility] [address] [id number] [address] [place] [address], [place] [id number] 27 Aug, 2011 [facility] [address] [id number] [address] [place] [address], [place] [id number] Aug, [facility] [address] [id number] [address] [place] [address], [place] [id number] 08 Aug, 2011 [facility] [address] [id number] [address] [place] [address], [place] [address] Jul, [facility] [address] [id number] [address] [place] [address], [place] [id number] Jul, [facility] [address] [id number] [address] [place] [address], [place] [id number] Jul, [facility] [address] [id number] [address] [place] [address], [place] [id number] Jul, [facility] [address] [id number] [address] [place] [address], [place] [id number] Jun, [facility] [address] [id number] [address] [place] [address], [place] [id number] Jun, [facility] [address] [id number] [address] [place] [address], [place] [id number] 29 May, 2011 [facility] [address] [id number] [address] [place] [address], [place] [id number] 29 May, 2011 [facility] [address] [id number] [address] [place] [id number] May, [facility] [address] [id number] [address] [place] [id number] May, [facility] [address] [id number] [address] [place] [id number] May, [facility] [address] [id number] [address] [place] [id number] Apr, [facility] [address] [id number] [address] [place] [id number] Apr, [facility] [address] [id number] [address] [place] [id number] Apr, [facility] [address] [id number] [address] [place] [id number] Jan, [facility] [address] [id number] [address] [place] [id number] Dec, [facility] [address] [id number] [address] [place] [id number] October, [facility] [address] [id number] [address] [place] [id number] Jun, [facility] [address] [id number] [address] [place] [id number] Apr, [facility] [address] [id number] [address] [place] [id number] Apr, [facility] [address] [id number] [address] [place] [id number] Apr, [facility] [address] [id number] [address] [place] [id number] Jun, IMMUNIZATIONS No Known Immunizations SOCIAL HISTORY Never Assessed REASON FOR VISIT adderall 11/30/2017 PLAN OF CARE VITAL SIGNS MEDICATIONS Medication Instructions Dosage Frequency Start Date End Date Duration S wilyus Adderall 10 mg Orally 3 times a day 1 tablet 8h October, 28 days Active RESULTS No Results PROCEDURES No Known procedures INSTRUCTIONS MEDICATIONS ADMINISTERED No Known Medications MEDICAL (GENERAL) HISTORY Type Description Date Medical History Psychiatric disorder Medical History Hard of hearing Surgical History Neofibrous tumor Surgical History back injection Hospitalization History Intestinal blockage Hospitalization History past psychiatric hospitalizations x2
--- OUTSIDE RECORDS SUMMARY | 2020-01-25 13:12 | XMS REPORT ---
Author Author Ana ESCAMILLA KWAME [facility] Address [address] [place] [address] Care Team Providers Care Field Sales Consultant Name Role Phone FRANCINE, KWAME Unavailable PROBLEMS Type Condition ICD9-CM Code UCA91-AH Code Onset Dates Condition S tatus SNOMED Code Problem Attention deficit R41.840 Active 76 367094 Problem Cannabis abuse F12.10 Active 00253 009 Problem Chronic hepatitis C without hepatic coma B18.2 Active 886216760 Problem Attention deficit hyperactivity disorder (ADHD), combi luciano type F90.2 Active 29692383 Problem Bipolar disorder, in partial remission, most rec ent episode hypomanic F31.71 Active 123088793 Problem H/O laminectomy Z98.89 Active 1616 83839 Problem Bipolar 1 disorder F31.9 Active 3 97251110 Problem Anxiety disorder, unspecified type F41.9 Active 947748791 Problem Other chronic pain G89.29 Active 8 3231085 ALLERGIES No Information ENCOUNTERS Encounter Location Date Diagnosis [facility] [address] [facility] [id number] [address] [place] [address] Apr, [facility] [address] [facility] [id number] [address] [place] [address] Mar, [facility] [address] [facility] [id number] [address] [place] [address] Jan, Bipolar disorder, in partial remission, most recent episode hypomanic F31.71 [facility] [address] [facility] [id number] [address] [place] [address] Dec, Bipolar disorder, in partial remission, most recent episode hypomanic F31.71 [facility] [address] [facility] [id number] [address] [place] [address] Dec, Bipolar disorder, in partial remission, most recent episode hypomanic F31.71 ; Attention deficit hyperactivity disorder (ADHD), combined type F90.2 ; Anxiety disorder, unspecified type F41.9 and Other long-term (current) drug therapy Z79.899 [facility] [address] [id number] [address] [place] [address] Dec, Bipolar disorder, in partial remission, most recent episode hypomanic F31.71 [facility] [address] [id number] [address] [place] [address] Dec, Bipolar disorder, in partial remission, most recent episode hypomanic F31.71 [facility] [address] [id number] [address] [place] [address] October, Bipolar disorder, in partial remission, most recent episode hypomanic F31.71 [facility] [address] [id number] [address] [place] [address] October, [facility] [address] [id number] [address] [place] [address] October, [facility] [address] [id number] [address] [place] [address] Oct, Bipolar disorder, in partial remission, most recent episode hypomanic F31.71 ; Attention deficit hyperactivity disorder (ADHD), combined type F90.2 ; Anxiety disorder, unspecified type F41.9 and Encounter for drug screening Z02.83 [facility] [address] [id number] [address] [place] [address] Oct, Bipolar disorder, in partial remission, most recent episode hypomanic F31.71 [facility] [address] [id number] [address] [place] [address] Oct, Bipolar disorder, in partial remission, most recent episode hypomanic F31.71 [facility] [address] [id number] [address] [place] [address] Aug, Bipolar disorder, in partial remission, most recent episode hypomanic F31.71 [facility] [address] [id number] [address] [place] [address] 15 Aug, 2017 Bipolar disorder, in partial remission, most recent episode hypomanic F31.71 [facility] [address] [id number] [address] [place] [address] Aug, Bipolar disorder, in partial remission, most recent episode hypomanic F31.71 [facility] [address] [id number] [address] [place] [address] Jul, Bipolar disorder, in partial remission, most recent episode hypomanic F31.71 ; Attention deficit hyperactivity disorder (ADHD), combined type F90.2 and Anxiety disorder, unspecified type F41.9 [facility] [address] [id number] [address] [place] [address] Jul, Bipolar disorder, in partial remission, most recent episode hypomanic F31.71 [facility] [address] [id number] [address] [place] [address] Jun, Bipolar disorder, in partial remission, most recent episode hypomanic F31.71 [facility] [address] [id number] [address] [place] [address] May, Bipolar disorder, in partial remission, most recent episode hypomanic F31.71 [facility] [address] [facility] [id number] [address] [place] [address] May, Bipolar disorder, in partial remission, most recent episode hypomanic F31.71 [facility] [address] [facility] [id number] [address] [place] [address] Apr, [facility] [address] [id number] [address] [place] [address] Apr, Bipolar disorder, in partial remission, most recent episode hypomanic F31.71 ; Attention deficit hyperactivity disorder (ADHD), combined type F90.2 ; Anxiety disorder, unspecified type F41.9 and Cannabis abuse F12.10 [facility] [address] [id number] [address] [place] [address] Apr, Attention deficit hyperactiv ity disorder (ADHD), combined type F90.2 [facility] [address] [id number] [address] [address] 21 Mar, 2017 Attention deficit hyperactiv ity disorder (ADHD), combined type F90.2 [facility] [address] [id number] [facility] [address] 14 Mar, 2017 Anxiety disorder, unspecifie d type F41.9 [facility] [address] [id number] [address] [place] [address] 18 Jan, 2017 Attention deficit hyperactiv ity disorder (ADHD), combined type F90.2 [facility] [address] [id number] [address] [place] [address] Jan, Anxiety disorder, unspecifie d type F41.9 [facility] [address] [id number] [address] [place] [address] Jan, Other chronic pain G89.29 ; Chronic hepatitis C without hepatic coma B18.2 and Bipolar 1 disorder F31.9 [facility] [address] [id number] [address] [place] [address] Dec, Attention deficit hyperactiv ity disorder (ADHD), combined type F90.2 [facility] [address] [id number] [address] [place] [address], [place] [address] 24 Dec, 2016 Bipolar disorder, in partial remission, most recent episode hypomanic F31.71 ; Attention deficit hyperactivity disorder (ADHD), combined type F90.2 and Anxiety disorder, unspecified type F41.9 [facility] [address] [id number] [address] [place] [address], [place] [address] 28 Dec, 2016 Bipolar disorder, in partial remission, most recent episode hypomanic F31.71 ; Attention deficit hyperactivity disorder (ADHD), combined type F90.2 and Anxiety disorder, unspecified type F41.9 [facility] [address] [id number] [address] [place] [address], [place] [address] Dec, Bipolar 1 disorder F31.9 and Attention deficit R41.840 [facility] [address] [id number] [address] [place] [address] Oct, Other chronic pain G89.29 ; Alopecia L65.9 and Screening, lipid Z13.220 [facility] [address] [id number] [address] [place] [address] Oct, [facility] [address] [id number] [address] [place] [address] Aug, [facility] [address] [id number] [address] [place] [address] Aug, Eustachian tube dysfunction, right H69.81 ; Vertigo R42 and Other chronic pain G89.29 [facility] [address] [id number] [address] [place] [address] Aug, [facility] [address] [facility] [id number] [address] [place] [address] Jun, [facility] [address] [facility] [id number] [address] [place] [address] Jun, Low back pain M54.5 and Othe r chronic pain G89.29 [facility] [address] [id number] [address] [place] [address] Jun, [facility] [address] [id number] [address] [place] [address] May, [facility] [address] [facility] [id number] [address] [place] [address] Jan, [facility] [address] [id number] [address] [place] [address] Dec, [facility] [address] [facility] [id number] [address] [place] [address] Dec, [facility] [address] [facility] [id number] [address] [place] [address] Jun, [facility] [address] [facility] [id number] [address] [place] [address] Apr, Eustachian tube dysfunction, unspecified laterality H69.80 ; Hot flashes N95.1 and Encounter for immunization Z23 [facility] [address] [facility] [id number] [address] [place] [address] Jan, [facility] [address] [facility] [id number] [address] [place] [address] Jan, [facility] [address] [facility] [id number] [address] [place] [address] Jan, [facility] [address] [facility] [id number] [address] [place] [address] Jan, [facility] [address] [place] [id number] [place] [address] Jan, Encounter to establish care V65.8 ; Bipolar 1 disorder 296.7 ; Abdominal pain 789.00 ; Constipation 564.00 ; Hard of hearing 389.9 and Drug abuse 305.90 [facility] [address] [facility] [id number] [address] [place] [address] Dec, [facility] [address] [facility] [id number] [address] [place] [address] October, [facility] [address] [place] [id number] [address] [place] [address] October, [facility] [address] [facility] [id number] [address] [place] [address] Oct, [facility] [address] [facility] [id number] [address] [place] [address] Oct, [facility] [address] [facility] [id number] [address] [place] [address] Oct, [facility] [address] [facility] [id number] [address] [place] [address] Aug, [facility] [address] [facility] [id number] [address] [place] [address] Aug, [facility] [address] [id number] [address] [place] [address], [place] [address] Aug, [facility] [address] [id number] [address] [place] [address], [place] [address] Aug, 2014 [facility] [address] [id number] [address] [place] [address], [place] [address] Aug, 2014 [facility] [address] [id number] [address] [place] [address], [place] [address] Aug, 2014 [facility] [address] [id number] [address] [place] [address], [place] [address] Aug, 2014 [facility] [address] [id number] [address] [place] [address], [place] [address] Aug, 2014 [facility] [address] [id number] [address] [place] [address], [place] [address] Aug, 2014 [facility] [address] [id number] [address] [place] [address], [place] [address] Aug, 2014 [facility] [address] [id number] [address] [place] [address], [place] [address] Aug, 2014 [facility] [address] [id number] [address] [place] [address], [place] [address] Aug, [facility] [address] [id number] [address] [place] [address] Aug, 2014 [facility] [address] [id number] [address] [place] [address] Aug, 2014 [facility] [address] [id number] [address] [place] [address], [place] [address] Aug, [facility] [address] [id number] [address] [place] [address], [place] [address] Jul, [facility] [address] [id number] [address] [place] [address] Jul, [facility] [address] [id number] [address] [place] [address] Jul, [facility] [address] [id number] [address] [place] [address], [place] [address] Jul, [facility] [address] [id number] [address] [place] [address], [place] [address] Jul, [facility] [address] [id number] [address] [place] [address], [place] [address] Jul, [facility] [address] [id number] [address] [place] [address], [place] [address] Jul, [facility] [address] [id number] [address] [place] [address], [place] [address] Jul, [facility] [address] [id number] [address] [place] [address], [place] [address] Jun, [facility] [address] [id number] [address] [place] [address], [place] [address] Jun, [facility] [address] [id number] [address] [place] [address], [place] [address] Jun, [facility] [address] [id number] [address] [place] [address], [place] [address] Jun, [facility] [address] [id number] [address] [place] [address], [place] [address] Jun, [facility] [address] [id number] [address] [place] [address], [place] [address] Jun, [facility] [address] [id number] [address] [place] [address], [place] [address] Jun, [facility] [address] [id number] [address] [place] [address], [place] [address] Jun, [facility] [address] [id number] [address] [place] [address], [place] [address] Jun, [facility] [address] [id number] [address] [place] [address], [place] [address] Jun, [facility] [address] [id number] [address] [place] [address], [place] [address] Jun, [facility] [address] [id number] [address] [place] [address], [place] [address] May, [facility] [address] [id number] [address] [place] [address], [place] [address] May, [facility] [address] [id number] [address] [place] [address], [place] [address] May, [facility] [address] [id number] [address] [place] [address], [place] [address] May, [facility] [address] [id number] [address] [place] [address], [place] [address] May, [facility] [address] [id number] [address] [place] [address], [place] [address] May, [facility] [address] [id number] [address] [place] [address], [place] [address] May, [facility] [address] [id number] [address] [place] [address], [place] [address] Apr, [facility] [address] [id number] [address] [place] [address], [place] [address] Apr, [facility] [address] [id number] [address] [place] [address], [place] [address] Apr, [facility] [address] [id number] [address] [place] [address], [place] [address] Apr, [facility] [address] [id number] [address] [place] [address], [place] [address] Apr, [facility] [address] [id number] [address] [place] [address], [place] [address] Apr, [facility] [address] [id number] [address] [place] [address], [place] [address] Mar, [facility] [address] [id number] [address] [place] [address], [place] [address] Mar, [facility] [address] [id number] [address] [place] [address], [place] [address] Mar, [facility] [address] [id number] [address] [place] [address], [place] [address] Mar, [facility] [address] [id number] [address] [place] [address], [place] [address] Mar, [facility] [address] [id number] [address] [place] [address], [place] [address] Mar, [facility] [address] [id number] [address] [place] [address], [place] [address] Jan, [facility] [address] [id number] [address] [place] [address], [place] [address] Jan, [facility] [address] [id number] [address] [place] [address], [place] [address] Jan, [facility] [address] [id number] [address] [place] [address], [place] [address] Jan, [facility] [address] [id number] [address] [place] [address], [place] [address] Dec, [facility] [address] [id number] [address] [place] [address], [place] [address] Dec, [facility] [address] [id number] [address] [place] [address], [place] [address] Dec, [facility] [address] [id number] [address] [place] [address], [place] [address] Dec, [facility] [address] [id number] [address] [place] [address], [place] [address] Dec, [facility] [address] [id number] [address] [place] [address], [place] [address] Dec, [facility] [address] [id number] [address] [place] [address], [place] [address] Dec, [facility] [address] [id number] [address] [place] [address], [place] [address] Dec, [facility] [address] [id number] [address] [place] [address], [place] [address] Dec, [facility] [address] [id number] [address] [place] [address], [place] [address] Dec, [facility] [address] [id number] [address] [place] [address], [place] [address] Dec, [facility] [address] [id number] [address] [place] [address], [place] [address] Dec, [facility] [address] [id number] [address] [place] [address], [place] [address] October, [facility] [address] [id number] [address] [place] [address], [place] [address] October, [facility] [address] [id number] [address] [place] [address], [place] [address] October, [facility] [address] [id number] [address] [place] [address], [place] [address] October, [facility] [address] [id number] [address] [place] [address], [place] [address] October, [facility] [address] [id number] [address] [place] [address], [place] [address] October, [facility] [address] [id number] [address] [place] [address], [place] [address] Oct, [facility] [address] [id number] [address] [place] [address], [place] [address] Oct, [facility] [address] [id number] [address] [place] [address], [place] [address] Oct, [facility] [address] [id number] [address] [place] [address], [place] [address] Oct, [facility] [address] [id number] [address] [place] [address], [place] [address] Oct, [facility] [address] [id number] [facility] [place] [address] Oct, [facility] [address] [id number] [facility] [place] [address] Oct, [facility] [address] [id number] [facility] [place] [address] Oct, [facility] [address] [id number] [facility] [place] [address] Oct, [facility] [address] [id number] [facility] [place] [address] Oct, [facility] [address] [id number] [address] [place] [address], [place] [address] Oct, [facility] [address] [id number] [address] [place] [address], [place] [address] Oct, [facility] [address] [id number] [address] [place] [address], [place] [id number] 15 Aug, 2013 [facility] [address] [id number] [address] [place] [address], [place] [id number] 15 Aug, 2013 [facility] [address] [id number] [address] [place] [address], [place] [address] Aug, [facility] [address] [id number] [address] [place] [address], [place] [address] Aug, [facility] [address] [id number] [address] [place] [address], [place] [id number] 05 Aug, 2013 [facility] [address] [id number] [address] [place] [address], [place] [id number] 05 Aug, 2013 [facility] [address] [id number] [address] [place] [address], [place] [id number] 04 Aug, 2013 [facility] [address] [id number] [address] [place] [address], [place] [id number] 03 Aug, 2013 [facility] [address] [id number] [address] [place] [address], [place] [id number] Aug, [facility] [address] [id number] [address] [place] [address], [place] [id number] Aug, [facility] [address] [id number] [address] [place] [address], [place] [id number] 24 Aug, 2013 [facility] [address] [id number] [address] [place] [address], [place] [id number] Aug, [facility] [address] [id number] [address] [place] [address], [place] [id number] Aug, 2013 [facility] [address] [id number] [address] [place] [address], [place] [id number] 20 Aug, 2013 [facility] [address] [id number] [address] [place] [address], [place] [id number] 14 Aug, 2013 [facility] [address] [id number] [address] [place] [address], [place] [id number] Aug, [facility] [address] [id number] [address] [place] [address], [place] [id number] 14 Aug, 2013 [facility] [address] [id number] [address] [place] [address], [place] [id number] 14 Aug, 2013 [facility] [address] [id number] [address] [place] [address], [place] [id number] 07 Aug, 2013 [facility] [address] [id number] [address] [place] [address], [place] [id number] 07 Aug, 2013 [facility] [address] [id number] [address] [place] [address], [place] [id number] 06 Aug, 2013 [facility] [address] [id number] [address] [place] [address], [place] [address] Aug, 2013 [facility] [address] [id number] [address] [place] [address], [place] [address] Aug, 2013 [facility] [address] [id number] [address] [place] [address], [place] [id number] 04 Aug, 2013 [facility] [address] [id number] [address] [place] [address], [place] [id number] Aug, [facility] [address] [id number] [address] [place] [address], [place] [id number] Jul, [facility] [address] [id number] [address] [place] [address], [place] [address] Jul, [facility] [address] [id number] [address] [place] [address], [place] [address] Jul, [facility] [address] [id number] [address] [place] [address], [place] [id number] Jul, [facility] [address] [id number] [address] [place] [address], [place] [id number] Jul, [facility] [address] [id number] [address] [place] [address], [place] [id number] Jul, [facility] [address] [id number] [address] [place] [address], [place] [id number] Jul, [facility] [address] [id number] [address] [place] [address], [place] [address] Jul, [facility] [address] [id number] [address] [place] [address], [place] [address] Jul, [facility] [address] [id number] [address] [place] [address], [place] [address] Jul, [facility] [address] [id number] [address] [place] [address], [place] [address] Jul, [facility] [address] [id number] [address] [place] [address], [place] [address] Jul, [facility] [address] [id number] [address] [place] [address], [place] [address] Jul, [facility] [address] [id number] [address] [place] [address], [place] [address] Jul, [facility] [address] [id number] [address] [place] [address] 07 Jul, 2013 [facility] [address] [id number] [address] [place] [address], [place] [address] Jul, [facility] [address] [id number] [address] [place] [address], [place] [address] Jul, [facility] [address] [id number] [address] [place] [address], [place] [address] Jul, [facility] [address] [id number] [address] [place] [address], [place] [address] Jul, [facility] [address] [id number] [address] [place] [address], [place] [address] Jul, [facility] [address] [id number] [address] [place] [address], [place] [address] Jun, [facility] [address] [id number] [address] [place] [address], [place] [address] Jun, [facility] [address] [id number] [address] [place] [address], [place] [address] Jun, [facility] [address] [id number] [address] [place] [address], [place] [address] Jun, [facility] [address] [id number] [address] [place] [address], [place] [address] Jun, [facility] [address] [id number] [address] [place] [address], [place] [address] Jun, [facility] [address] [id number] [address] [place] [address], [place] [address] Jun, [facility] [address] [id number] [address] [place] [address], [place] [address] Jun, [facility] [address] [id number] [address] [place] [address], [place] [address] 24 Jun, 2013 [facility] [address] [id number] [address] [place] [address], [place] [address] Jun, [facility] [address] [id number] [address] [place] [address], [place] [address] 23 Jun, 2013 [facility] [address] [id number] [address] [place] [address], [place] [address] Jun, [facility] [address] [id number] [address] [place] [address], [place] [address] Jun, [facility] [address] [id number] [address] [place] [address], [place] [address] Jun, [facility] [address] [id number] [address] [place] [address], [place] [address] Jun, [facility] [address] [id number] [address] [place] [address], [place] [address] 18 Jun, 2013 [facility] [address] [id number] [address] [place] [address], [place] [address] 18 Jun, 2013 [facility] [address] [id number] [address] [place] [address], [place] [address] 17 Jun, [address] [facility] [address] [id number] [address] [place] [address], [place] [address] 17 Jun, 2013 [facility] [address] [id number] [address] [place] [address], [place] [address] 13 Jun, [address] [facility] [address] [id number] [address] [place] [address], [place] [address] 12 Jun, 2013 [facility] [address] [id number] [address] [place] [address], [place] [address] 12 Jun, 2013 [facility] [address] [id number] [address] [place] [address], [place] [address] 09 Jun, 2013 [facility] [address] [id number] [address] [place] [address], [place] [address] 05 Jun, [address] [facility] [address] [id number] [address] [place] [address], [place] [address] 05 Jun, 2013 [facility] [address] [id number] [address] [place] [address] [address] Jun, [facility] [address] [id number] [address] [place] [address], [place] [address] Jun, [facility] [address] [id number] [address] [place] [address], [place] [address] May, [facility] [address] [id number] [address] [place] [address], [place] [address] May, [facility] [address] [id number] [address] [place] [address] May, [facility] [address] [id number] [address] [place] [address], [place] [address] May, [facility] [address] [id number] [address] [place] [address] May, [facility] [address] [id number] [address] [place] [address], [place] [address] May, [facility] [address] [id number] [address] [place] [address] Apr, [facility] [address] [id number] [address] [place] [address] Apr, [facility] [address] [id number] [address] [place] [address] Apr, [facility] [address] [id number] [address] [place] [address] 30 Apr, 2013 [facility] [address] [id number] [address] [place] [address] Apr, [facility] [address] [id number] [address] [place] [address] Apr, [facility] [address] [id number] [address] [place] [address] Apr, [facility] [address] [id number] [address] [place] [address] Apr, [facility] [address] [id number] [address] [place] [address], [place] [address] 26 Mar, 2012 [facility] [address] [id number] [address] [place] [address], [place] [address] 24 Mar, 2012 [facility] [address] [id number] [address] [place] [address], [place] [address] 17 Mar, 2012 [facility] [address] [id number] [address] [place] [address], [place] [address] 17 Mar, 2012 [facility] [address] [id number] [address] [place] [address], [place] [address] 11 Mar, 2012 [facility] [address] [id number] [address] [place] [address], [place] [address] 10 Mar, 2012 [facility] [address] [id number] [address] [place] [address], [place] [address] 05 Mar, 2012 [facility] [address] [id number] [address] [place] [address], [place] [address] 04 Mar, 2012 [facility] [address] [id number] [address] [place] [address], [place] [address] 20 Jan, 2013 [facility] [address] [id number] [address] [place] [address], [place] [address] 19 Jan, 2013 [facility] [address] [id number] [address] [place] [address], [place] [address] 14 Jan, 2013 [facility] [address] [id number] [address] [place] [address], [place] [address] Jan, [facility] [address] [id number] [address] [place] [address], [place] [address] Jan, [facility] [address] [id number] [address] [place] [address], [place] [address] 05 Jan, 2013 [facility] [address] [id number] [address] [place] [address], [place] [address] Dec, [facility] [address] [id number] [address] [place] [address], [place] [address] Dec, [facility] [address] [id number] [address] [place] [address], [place] [address] Dec, [facility] [address] [id number] [address] [place] [address], [place] [address] Dec, [facility] [address] [id number] [address] [place] [address], [place] [address] Dec, [facility] [address] [id number] [address] [place] [address], [place] [address] Dec, [facility] [address] [id number] [address] [place] [address], [place] [address] Dec, [facility] [address] [id number] [address] [place] [address], [place] [address] Dec, [facility] [address] [id number] [address] [place] [address], [place] [address] Dec, [facility] [address] [id number] [address] [place] [address], [place] [address] Dec, [facility] [address] [id number] [address] [place] [address], [place] [address] Dec, [facility] [address] [id number] [address] [place] [address], [place] [address] Dec, [facility] [address] [id number] [address] [place] [address], [place] [address] Dec, [facility] [address] [id number] [address] [place] [address], [place] [address] Dec, [facility] [address] [id number] [address] [place] [address], [place] [address] Dec, [facility] [address] [id number] [address] [place] [address], [place] [address] Dec, [facility] [address] [id number] [address] [place] [address], [place] [address] October, [facility] [address] [id number] [address] [place] [address], [place] [address] October, [facility] [address] [id number] [address] [place] [address], [place] [address] October, [facility] [address] [id number] [address] [place] [address], [place] [address] October, [facility] [address] [id number] [address] [place] [address], [place] [address] October, [facility] [address] [id number] [address] [place] [address], [place] [address] October, [facility] [address] [id number] [address] [place] [address], [place] [address] October, [facility] [address] [id number] [address] [place] [address], [place] [address] Oct, [facility] [address] [id number] [address] [place] [address], [place] [address] Oct, [facility] [address] [id number] [address] [place] [address], [place] [address] Oct, [facility] [address] [id number] [address] [place] [address], [place] [address] Oct, [facility] [address] [id number] [address] [place] [address], [place] [address] Oct, [facility] [address] [id number] [address] [place] [address], [place] [address] 18 Oct, 2012 [facility] [address] [id number] [address] [place] [address], [place] [address] 17 Oct, 2012 [facility] [address] [id number] [address] [place] [address], [place] [address] 15 Oct, 2012 [facility] [address] [id number] [address] [place] [address], [place] [address] 12 Oct, 2012 [facility] [address] [id number] [address] [place] [address], [place] [address] Oct, [facility] [address] [id number] [address] [place] [address], [place] [address] Oct, [facility] [address] [id number] [address] [place] [address], [place] [address] Oct, [facility] [address] [id number] [address] [place] [address], [place] [address] Aug, [facility] [address] [id number] [address] [place] [address], [place] [address] Aug, [facility] [address] [id number] [address] [place] [address], [place] [address] Aug, [facility] [address] [id number] [address] [place] [address], [place] [address] Aug, [facility] [address] [id number] [address] [place] [address], [place] [address] Aug, [facility] [address] [id number] [address] [place] [address], [place] [address] Aug, [facility] [address] [id number] [address] [place] [address], [place] [address] Aug, [facility] [address] [id number] [address] [place] [address], [place] [address] Aug, [facility] [address] [id number] [address] [place] [address], [place] [address] Aug, [facility] [address] [id number] [address] [place] [address], [place] [address] Aug, [facility] [address] [id number] [address] [place] [address], [place] [address] Jul, [facility] [address] [id number] [address] [place] [address], [place] [address] Jul, [facility] [address] [id number] [address] [place] [address], [place] [address] Jul, [facility] [address] [id number] [address] [place] [address] [address] 20 Jun, 2012 [facility] [address] [id number] [address] [place] [address], [place] [address] 18 Jun, 2012 [facility] [address] [id number] [address] [place] [address], [place] [address] 18 Jun, 2012 [facility] [address] [id number] [address] [place] [address], [place] [address] 18 Jun, 2012 [facility] [address] [id number] [address] [place] [address], [place] [address] 18 Jun, 2012 [facility] [address] [id number] [address] [place] [address], [place] [address] 14 Jun, 2012 [facility] [address] [id number] [address] [place] [address], [place] [address] 14 Jun, 2012 [facility] [address] [id number] [address] [place] [address], [place] [address] 13 Jun, 2012 [facility] [address] [id number] [address] [place] [address], [place] [address] 13 Jun, 2012 [facility] [address] [id number] [address] [place] [address], [place] [address] 11 Jun, 2012 [facility] [address] [id number] [address] [place] [address], [place] [address] 11 Jun, 2012 [facility] [address] [id number] [address] [place] [address], [place] [address] 11 Jun, 2012 [facility] [address] [id number] [address] [place] [address], [place] [address] 11 Jun, 2012 [facility] [address] [id number] [address] [place] [address], [place] [address] 07 Jun, 2012 [facility] [address] [id number] [address] [place] [address], [place] [address] 07 Jun, 2012 [facility] [address] [id number] [address] [place] [address], [place] [address] 06 Jun, 2012 [facility] [address] [id number] [address] [place] [address], [place] [address] 06 Jun, 2012 [facility] [address] [id number] [address] [place] [address], [place] [address] Jun, [facility] [address] [id number] [address] [place] [address], [place] [address] Jun, [facility] [address] [id number] [address] [place] [address], [place] [address] Jun, [facility] [address] [id number] [address] [place] [address], [place] [address] Jun, [facility] [address] [id number] [address] [place] [address], [place] [address] Jun, [facility] [address] [id number] [address] [place] [address], [place] [address] Jun, [facility] [address] [id number] [address] [place] [address], [place] [address] May, [facility] [address] [id number] [address] [place] [address], [place] [address] May, [facility] [address] [id number] [address] [place] [address], [place] [address] May, [facility] [address] [id number] [address] [place] [address], [place] [address] May, [facility] [address] [id number] [address] [place] [address], [place] [address] May, [facility] [address] [id number] [address] [place] [address], [place] [address] May, [facility] [address] [id number] [address] [place] [address], [place] [address] May, [facility] [address] [id number] [address] [place] [address], [place] [address] May, [facility] [address] [id number] [address] [place] [address], [place] [address] Apr, [facility] [address] [id number] [address] [place] [address], [place] [address] 30 Apr, 2012 [facility] [address] [id number] [address] [place] [address], [place] [address] 29 Apr, 2012 [facility] [address] [id number] [address] [place] [address], [place] [address] Apr, [facility] [address] [id number] [address] [place] [address], [place] [address] Apr, [facility] [address] [id number] [address] [place] [address], [place] [id number] Apr, [facility] [address] [id number] [address] [place] [address], [place] [address] Apr, [facility] [address] [id number] [address] [place] [address], [place] [address] Apr, [facility] [address] [id number] [address] [place] [address], [place] [address] Apr, [facility] [address] [id number] [address] [place] [address], [place] [address] Apr, [facility] [address] [id number] [address] [place] [id number] 04 Apr, 2012 [facility] [address] [id number] [address] [place] [address] Apr, [facility] [address] [id number] [address] [place] [id number] 19 Mar, 2012 [facility] [address] [id number] [address] [place] [address], [place] [address] 18 Sep2011 [facility] [address] [id number] [address] [place] [id number] 12 Mar, 2012 [facility] [address] [id number] [address] [place] [id number] 12 Mar, 2012 [facility] [address] [id number] [address] [place] [id number] Mar, [facility] [address] [id number] [place] [id number] Mar, [facility] [address] [id number] [address] [place] [id number] Mar, [facility] [address] [id number] [address] [place] [address], [place] [address] Jan, [facility] [address] [id number] [address] [place] [id number] Jan, [facility] [address] [id number] [address] [place] [id number] Jan, [facility] [address] [id number] [address] [place] [id number] Jan, [facility] [address] [id number] [address] [place] [id number] Jan, [facility] [address] [id number] [address] [place] [id number] Jan, [facility] [address] [id number] [address] [place] [address], [place] [address] Jan, [facility] [address] [id number] [address] [place] [address], [place] [address] Jan, [facility] [address] [id number] [address] [place] [address], [place] [address] Jan, [facility] [address] [id number] [address] [place] [id number] Jan, [facility] [address] [id number] [address] [place] [address], [place] [address] Jan, [facility] [address] [id number] [address] [place] [address], [place] [address] Dec, [facility] [address] [id number] [address] [place] [address], [place] [address] Dec, [facility] [address] [id number] [facility] [place] [address] 26 Jan, 2012 [facility] [address] [id number] [address] [place] [address], [place] [address] 26 Dec, 2011 [facility] [address] [id number] [address] [place] [address], [place] [id number] 20 Jan, 2012 [facility] [address] [id number] [address] [place] [address], [place] [address] 19 Dec, 2011 [facility] [address] [id number] [address] [place] [address], [place] [address] 18 Jan, 2012 [facility] [address] [id number] [address] [place] [address], [place] [address] 17 Jan, 2012 [facility] [address] [id number] [address] [place] [address], [place] [id number] 16 Jan, 2012 [facility] [address] [id number] [address] [place] [address], [place] [address] 13 Jan, 2012 [facility] [address] [id number] [address] [place] [address], [place] [address] 13 Jan, 2012 [facility] [address] [id number] [address] [place] [address], [place] [address] 02 Jan, 2012 [facility] [address] [id number] [address] [place] [address], [place] [id number] 27 Dec, 2011 [facility] [address] [id number] [address] [place] [address], [place] [address] 27 Dec, 2011 [facility] [address] [id number] [address] [place] [address], [place] [id number] 25 Dec, 2011 [facility] [address] [id number] [address] [place] [address], [place] [id number] 18 Dec, 2011 [facility] [address] [id number] [address] [place] [address], [place] [id number] 15 Dec, 2011 [facility] [address] [id number] [address] [place] [address], [place] [address] Dec, [facility] [address] [id number] [address] [place] [address], [place] [id number] Dec, [facility] [address] [id number] [address] [place] [address], [place] [address] October, [facility] [address] [id number] [address] [place] [address], [place] [address] October, [facility] [address] [id number] [address] [place] [address], [place] [address] October, [facility] [address] [id number] [address] [place] [address], [place] [address] October, [facility] [address] [id number] [address] [place] [address], [place] [address] October, [facility] [address] [id number] [address] [place] [address], [place] [address] October, [facility] [address] [id number] [address] [place] [address], [place] [address] Oct, [facility] [address] [id number] [address] [place] [address], [place] [address] Oct, [facility] [address] [id number] [address] [place] [address], [place] [address] Oct, [facility] [address] [id number] [address] [place] [address], [place] [address] Oct, [facility] [address] [id number] [address] [place] [address], [place] [address] Oct, [facility] [address] [id number] [address] [place] [address], [place] [id number] Oct, [facility] [address] [address] [id number] [address] [place] [address], [place] [id number] Oct, [facility] [address] [id number] [address] [place] [address], [place] [id number] Aug, [facility] [address] [id number] [address] [place] [address], [place] [id number] 29 Sep, 2011 [facility] [address] [id number] [address] [place] [address], [place] [id number] Aug, [facility] [address] [id number] [address] [place] [address], [place] [id number] Aug, [facility] [address] [id number] [address] [place] [address], [place] [id number] Aug, [facility] [address] [id number] [address] [place] [address], [place] [id number] 05 Sep, 2011 [facility] [address] [id number] [address] [place] [address], [place] [id number] 27 Aug, 2011 [facility] [address] [id number] [address] [place] [address], [place] [id number] Aug, [facility] [address] [id number] [address] [place] [address], [place] [id number] 08 Aug, 2011 [facility] [address] [id number] [address] [place] [address], [place] [id number] Jul, [facility] [address] [id number] [address] [place] [address], [place] [id number] Jul, [facility] [address] [id number] [address] [place] [address], [place] [id number] Jul, [facility] [address] [id number] [address] [place] [address], [place] [id number] Jul, [facility] [address] [id number] [address] [place] [address], [place] [id number] Jun, [facility] [address] [id number] [address] [place] [address], [place] [id number] Jun, [facility] [address] [id number] [address] [place] [address], [place] [id number] 29 May, 2011 [facility] [address] [id number] [address] [place] [address], [place] [id number] 29 May, 2011 [facility] [address] [id number] [address] [place] [id number] May, [facility] [address] [id number] [address] [place] [id number] May, [facility] [address] [id number] [address] [place] [id number] May, [facility] [address] [id number] [address] [place] [id number] Apr, [facility] [address] [id number] [address] [place] [id number] Apr, [facility] [address] [id number] [address] [place] [id number] Apr, [facility] [address] [id number] [address] [place] [id number] Jan, [facility] [address] [id number] [address] [place] [id number] Dec, [facility] [address] [id number] [address] [place] [id number] October, [facility] [address] [id number] [address] [place] [id number] Jun, [facility] [address] [id number] [address] [place] [id number] Apr, [facility] [address] [id number] [address] [place] [id number] Apr, [facility] [address] [id number] [address] [place] [id number] Apr, [facility] [address] [id number] [address] [place] [id number] Jun, IMMUNIZATIONS No Known Immunizations SOCIAL HISTORY [...]
--- OUTSIDE RECORDS SUMMARY | 2020-01-25 13:13 | XMS REPORT ---
Author Author Quang ESCAMILLAjeffery SUTHERLANDN 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 Name Role Phone Jackie ESCAMILLAYEN Unavailable PROBLEMS Type Condition ICD9-CM Code [id number] Code Onset Dates Condition S tatus SNOMED Code Problem Attention deficit R41.840 Active 76 115894 Problem Cannabis abuse F12.10 Active 55004 009 Problem Chronic hepatitis C without hepatic coma B18.2 Active 420778195 Problem Attention deficit hyperactivity disorder (ADHD), combi luciano type F90.2 Active 00640033 Problem Bipolar disorder, in partial remission, most rec ent episode hypomanic F31.71 Active 491528370 Problem H/O laminectomy Z98.89 Active 1616 36723 Problem Bipolar 1 disorder F31.9 Active 3 07731307 Problem Anxiety disorder, unspecified type F41.9 Active 903235910 Problem Other chronic pain G89.29 Active 8 [id number] ALLERGIES No Information ENCOUNTERS Encounter Location Date Diagnosis [facility] [address] [id number] [address] [place] [address] Apr, [facility] [address] [id number] [address] [place] [address] Jan, [facility] [address] [id number] [address] [place] [address] Dec, Bipolar disorder, in partial remission, most recent episode hypomanic F31.71 [facility] [address] [id number] [address] [place] [address] Dec, Bipolar disorder, in partial remission, most recent episode hypomanic F31.71 ; Attention deficit hyperactivity disorder (ADHD), combined type F90.2 ; Anxiety disorder, unspecified type F41.9 and Other usp (current) drug therapy Z79.899 [facility] [address] [id number] [address] [place] [address] Dec, Bipolar disorder, in partial remission, most recent episode hypomanic F31.71 [facility] [address] [id number] [address] [place] [address] Dec, Bipolar disorder, in partial remission, most recent episode hypomanic F31.71 [facility] [address] [facility] [id number] [address] [place] [address] October, Bipolar disorder, in partial remission, most recent episode hypomanic F31.71 [facility] [address] [id number] [address] [place] [address] October, [facility] [address] [facility] [id number] [address] [place] [address] October, [facility] [address] [facility] [id number] [address] [place] [address] Oct, Bipolar disorder, in partial remission, most recent episode hypomanic F31.71 ; Attention deficit hyperactivity disorder (ADHD), combined type F90.2 ; Anxiety disorder, unspecified type F41.9 and Encounter for drug screening Z02.83 [facility] [address] [facility] [id number] [address] [place] [address] Oct, Bipolar disorder, in partial remission, most recent episode hypomanic F31.71 [facility] [address] [facility] [id number] [address] [place] [address] Oct, Bipolar disorder, in partial remission, most recent episode hypomanic F31.71 [facility] [address] [facility] [id number] [address] [place] [address] Aug, Bipolar disorder, in partial remission, most recent episode hypomanic F31.71 [facility] [address] [facility] [id number] [address] [place] [address] Aug, Bipolar disorder, in partial remission, most recent episode hypomanic F31.71 [facility] [address] [facility] [id number] [address] [place] [address] Aug, Bipolar disorder, in partial remission, most recent episode hypomanic F31.71 [facility] [address] [id number] [address] [place] [address] Jul, Bipolar disorder, in partial remission, most recent episode hypomanic F31.71 ; Attention deficit hyperactivity disorder (ADHD), combined type F90.2 and Anxiety disorder, unspecified type F41.9 [facility] [address] [facility] [id number] [address] [place] [id number] Jul, Bipolar disorder, in partial remission, most recent episode hypomanic F31.71 [facility] [address] [id number] [address] [place] [address] Jun, Bipolar disorder, in partial remission, most recent episode hypomanic F31.71 [facility] [address] [id number] [address] [place] [address] May, Bipolar disorder, in partial remission, most recent episode hypomanic F31.71 [facility] [address] [facility] [id number] [address] [place] [address] May, Bipolar disorder, in partial remission, most recent episode hypomanic F31.71 [facility] [address] [facility] [id number] [address] [place] [address] Apr, [facility] [address] [facility] [id number] [address] [place] [address] Apr, Bipolar disorder, in partial remission, most recent episode hypomanic F31.71 ; Attention deficit hyperactivity disorder (ADHD), combined type F90.2 ; Anxiety disorder, unspecified type F41.9 and Cannabis abuse F12.10 [facility] [address] [id number] [address] [place] [address] Apr, Attention deficit hyperactiv ity disorder (ADHD), combined type F90.2 [facility] [address] [id number] [address] [place] [address] Mar, Attention deficit hyperactiv ity disorder (ADHD), combined type F90.2 [facility] [address] [id number] [address] [place] [id number] 14 Mar, 2017 Anxiety disorder, unspecifie d type F41.9 [facility] [address] [facility] [id number] [address] [place] [address] Jan, Attention deficit hyperactiv ity disorder (ADHD), combined type F90.2 [facility] [address] [facility] [id number] [address] [place] [address] Jan, Anxiety disorder, unspecifie d type F41.9 [facility] [address] [facility] [id number] [address] [place] [address] Jan, Other chronic pain G89.29 ; Chronic hepatitis C without hepatic coma B18.2 and Bipolar 1 disorder F31.9 [facility] [address] [facility] [id number] [address] [place] [address] Dec, Attention deficit hyperactiv ity disorder (ADHD), combined type F90.2 [facility] [address] [facility] [id number] [address] [place] [address] Dec, Bipolar disorder, in partial remission, most recent episode hypomanic F31.71 ; Attention deficit hyperactivity disorder (ADHD), combined type F90.2 and Anxiety disorder, unspecified type F41.9 [facility] [address] [facility] [id number] [address] [place] [address] Dec, Bipolar disorder, in partial remission, most recent episode hypomanic F31.71 ; Attention deficit hyperactivity disorder (ADHD), combined type F90.2 and Anxiety disorder, unspecified type F41.9 [facility] [address] [facility] [id number] [address] [place] [address] Dec, Bipolar 1 disorder F31.9 and Attention deficit R41.840 [facility] [address] [facility] [id number] [address] [place] [address] Oct, Other chronic pain G89.29 ; Alopecia L65.9 and Screening, lipid Z13.220 [facility] [address] [id number] [address] [place] [address] Oct, [facility] [address] [id number] [address] [place] [address] Aug, [facility] [address] [facility] [id number] [address] [place] [address] Aug, Eustachian tube dysfunction, right H69.81 ; Vertigo R42 and Other chronic pain G89.29 [facility] [address] [id number] [address] [place] [address] Aug, [facility] [address] [id number] [address] [place] [address] Jun, [facility] [address] [facility] [id number] [address] [place] [address] Jun, Low back pain M54.5 and Othe r chronic pain G89.29 [facility] [address] [id number] [address] [place] [address] Jun, [facility] [address] [id number] [address] [place] [address] May, [facility] [address] [facility] [id number] [address] [place] [id number] Jan, [facility] [address] [facility] [id number] [address] [place] [address] Dec, [facility] [address] [facility] [id number] [address] [place] [address] Dec, [facility] [address] [facility] [id number] [address] [place] [address] Jun, [facility] [address] [facility] [id number] [address] [place] [address] Apr, Eustachian tube dysfunction, unspecified laterality H69.80 ; Hot flashes N95.1 and Encounter for immunization Z23 [facility] [address] [id number] [address] [place] [address] Jan, [facility] [address] [id number] [address] [place] [address] Jan, [facility] [address] [id number] [address] [place] [address] Jan, [facility] [address] [facility] [id number] [address] [place] [address] Jan, [facility] [address] [id number] [address] [place] [address] Jan, Encounter to establish care V65.8 ; Bipolar 1 disorder 296.7 ; Abdominal pain 789.00 ; Constipation 564.00 ; Hard of hearing 389.9 and Drug abuse 305.90 [facility] [address] [id number] [address] [place] [address] Dec, [facility] [address] [id number] [address] [place] [address] October, [facility] [address] [id number] [address] [place] [id number] October, [facility] [address] [id number] [address] [place] [id number] Oct, [facility] [address] [id number] [address] [place] [address] Oct, [facility] [address] [id number] [address] [place] [address] Oct, [facility] [address] [id number] [address] [place] [address] Aug, [facility] [address] [id number] [address] [place] [address] Aug, [facility] [address] [id number] [address] [place] [address] Aug, [facility] [address] [id number] [address] [place] [address] Aug, [facility] [address] [id number] [address] [place] [address], [place] [address] Aug, 2014 [facility] [address] [id number] [address] [place] [address], [place] [address] Aug, 2014 [facility] [address] [id number] [address] [place] [address], [place] [address] Aug, 2014 [facility] [address] [id number] [address] [place] [address], [place] [address] Aug, 2014 [facility] [address] [id number] [address] [place] [address], [place] [address] Aug, 2014 [facility] [address] [id number] [address] [place] [address], [place] [address] Aug, 2014 [facility] [address] [id number] [address] [place] [address], [place] [address] Aug, 2014 [facility] [address] [id number] [address] [place] [address], [place] [address] Aug, 2014 [facility] [address] [id number] [address] [place] [address], [place] [address] Aug, [facility] [address] [id number] [address] [place] [address], [place] [address] Aug, [facility] [address] [id number] [address] [place] [address], [place] [address] Aug, [facility] [address] [id number] [address] [place] [address], [place] [address] Jul, [facility] [address] [id number] [address] [place] [address], [place] [address] Jul, [facility] [address] [id number] [address] [place] [address], [place] [address] Jul, [facility] [address] [id number] [address] [place] [address], [place] [address] Jul, [facility] [address] [id number] [address] [place] [address], [place] [address] Jul, [facility] [address] [id number] [address] [place] [address], [place] [address] Jul, [facility] [address] [id number] [address] [place] [address], [place] [address] Jul, [facility] [address] [id number] [address] [place] [address], [place] [address] Jul, [facility] [address] [id number] [address] [place] [address], [place] [address] Jun, [facility] [address] [id number] [address] [place] [address], [place] [address] Jun, [facility] [address] [id number] [address] [place] [address], [place] [address] Jun, [facility] [address] [id number] [address] [place] [address], [place] [address] Jun, [facility] [address] [id number] [address] [place] [address], [place] [address] Jun, [facility] [address] [id number] [address] [place] [address], [place] [address] Jun, [facility] [address] [id number] [address] [place] [address], [place] [address] Jun, [facility] [address] [id number] [address] [place] [address], [place] [address] Jun, [facility] [address] [id number] [address] [place] [address], [place] [address] Jun, [facility] [address] [id number] [address] [place] [address], [place] [address] Jun, [facility] [address] [id number] [address] [place] [address], [place] [address] Jun, [facility] [address] [id number] [address] [place] [address], [place] [address] May, [facility] [address] [id number] [address] [place] [address], [place] [address] May, [facility] [address] [id number] [address] [place] [address], [place] [address] May, [facility] [address] [id number] [address] [place] [address], [place] [address] May, [facility] [address] [id number] [address] [place] [address], [place] [address] May, [facility] [address] [id number] [address] [place] [address], [place] [address] May, [facility] [address] [id number] [address] [place] [address], [place] [address] May, [facility] [address] [id number] [address] [place] [address], [place] [address] Apr, [facility] [address] [id number] [address] [place] [address], [place] [address] Apr, [facility] [address] [id number] [address] [place] [address], [place] [address] Apr, [facility] [address] [id number] [address] [place] [address] Apr, [facility] [address] [id number] [address] [place] [address] Apr, [facility] [address] [id number] [address] [place] [address] Apr, [facility] [address] [id number] [address] [place] [address], [place] [address] Mar, [facility] [address] [id number] [address] [place] [address], [place] [address] Mar, [facility] [address] [id number] [address] [place] [address] Mar, [facility] [address] [id number] [address] [place] [address] Mar, [facility] [address] [id number] [address] [place] [address], [place] [address] Mar, [facility] [address] [id number] [address] [place] [address], [place] [address] Mar, [facility] [address] [id number] [address] [place] [address], [place] [address] Jan, [facility] [address] [id number] [address] [place] [address], [place] [address] Jan, [facility] [address] [id number] [address] [place] [address], [place] [address] Jan, [facility] [address] [id number] [address] [place] [address], [place] [address] Jan, [facility] [address] [id number] [address] [place] [address], [place] [address] Dec, [facility] [address] [id number] [address] [place] [address], [place] [address] Dec, [facility] [address] [id number] [address] [place] [address], [place] [address] Dec, [facility] [address] [id number] [address] [place] [address], [place] [address] Dec, [facility] [address] [id number] [address] [place] [address], [place] [address] Dec, [facility] [address] [id number] [address] [place] [address], [place] [address] Dec, [facility] [address] [id number] [address] [place] [address], [place] [address] Dec, [facility] [address] [id number] [address] [place] [address], [place] [address] Dec, [facility] [address] [id number] [address] [place] [address], [place] [address] Dec, [facility] [address] [id number] [facility] [place] [address] Dec, [facility] [address] [id number] [facility] [address] Dec, [facility] [address] [id number] [facility] [address] Dec, [facility] [address] [id number] [address] [place] [address], [place] [address] October, [facility] [address] [id number] [address] [place] [address], [place] [address] October, [facility] [address] [id number] [address] [place] [address], [place] [address] October, [facility] [address] [id number] [address] [place] [address], [place] [address] October, [facility] [address] [id number] [address] [place] [address], [place] [address] October, [facility] [address] [id number] [address] [place] [address], [place] [address] October, [facility] [address] [id number] [address] [place] [address], [place] [address] Oct, [facility] [address] [id number] [address] [place] [address], [place] [address] Oct, [facility] [address] [id number] [address] [place] [address], [place] [address] Oct, [facility] [address] [id number] [address] [place] [address], [place] [address] Oct, [facility] [address] [id number] [address] [place] [address], [place] [address] Oct, [facility] [address] [id number] [address] [place] [address], [place] [address] Oct, [facility] [address] [id number] [address] [place] [address], [place] [address] Oct, [facility] [address] [id number] [facility] [place] [address] Oct, [facility] [address] [id number] [address] [place] [address], [place] [address] Oct, [facility] [address] [id number] [address] [place] [address], [place] [address] Oct, [facility] [address] [id number] [address] [place] [address], [place] [address] Oct, [facility] [address] [id number] [address] [place] [address], [place] [address] Oct, [facility] [address] [id number] [address] [place] [address], [place] [address] Aug, [facility] [address] [id number] [address] [place] [address], [place] [address] Aug, [facility] [address] [id number] [address] [place] [address], [place] [address] Aug, [facility] [address] [id number] [address] [place] [address], [place] [address] Aug, [facility] [address] [id number] [address] [place] [address], [place] [address] Aug, [facility] [address] [id number] [address] [place] [address], [place] [address] Aug, [facility] [address] [id number] [address] [place] [address], [place] [address] Aug, [facility] [address] [id number] [address] [place] [address], [place] [address] Aug, [facility] [address] [id number] [address] [place] [address], [place] [address] Aug, [facility] [address] [id number] [address] [place] [address], [place] [address] Aug, [facility] [address] [id number] [address] [place] [address], [place] [address] 24 Aug, 2013 [facility] [address] [id number] [address] [place] [address], [place] [address] Aug, 2013 [facility] [address] [id number] [address] [place] [address], [place] [address] 21 Aug, 2013 [facility] [address] [id number] [address] [place] [address], [place] [address] 20 Aug, 2013 [facility] [address] [id number] [address] [place] [address], [place] [address] 14 Aug, 2013 [facility] [address] [id number] [address] [place] [address], [place] [address] 14 Aug, 2013 [facility] [address] [id number] [address] [place] [address], [place] [address] 14 Aug, 2013 [facility] [address] [id number] [address] [place] [address], [place] [address] 14 Aug, 2013 [facility] [address] [id number] [address] [place] [address], [place] [address] 07 Aug, 2013 [facility] [address] [id number] [address] [place] [address], [place] [address] 07 Aug, 2013 [facility] [address] [id number] [address] [place] [address], [place] [address] 06 Aug, 2013 [facility] [address] [id number] [address] [place] [address] 06 Aug, 2013 [facility] [address] [id number] [address] [place] [address], [place] [address] 04 Aug, 2013 [facility] [address] [id number] [address] [place] [address], [place] [address] 04 Aug, 2013 [facility] [address] [id number] [address] [place] [address], [place] [address] 03 Aug, 2013 [facility] [address] [id number] [address] [place] [address] Jul, [facility] [address] [id number] [address] [place] [address], [place] [address] Jul, [facility] [address] [id number] [address] [place] [address], [place] [address] Jul, [facility] [address] [id number] [address] [place] [address], [place] [address] Jul, [facility] [address] [id number] [address] [place] [address], [place] [address] Jul, [facility] [address] [id number] [address] [place] [address], [place] [address] Jul, [facility] [address] [id number] [address] [place] [address], [place] [address] Jul, [facility] [address] [id number] [address] [place] [address], [place] [address] Jul, [facility] [address] [id number] [address] [place] [address], [place] [address] Jul, [facility] [address] [id number] [address] [place] [address], [place] [address] Jul, [facility] [address] [id number] [address] [place] [address], [place] [address] Jul, [facility] [address] [id number] [address] [place] [address], [place] [address] Jul, [facility] [address] [id number] [address] [place] [address], [place] [address] Jul, [facility] [address] [id number] [address] [place] [address], [place] [address] Jul, [facility] [address] [id number] [address] [place] [address], [place] [address] Jul, [facility] [address] [id number] [address] [place] [address], [place] [address] Jul, [facility] [address] [id number] [address] [place] [address], [place] [address] Jul, [facility] [address] [id number] [address] [place] [address], [place] [address] Jul, [facility] [address] [id number] [address] [place] [address], [place] [address] Jul, [facility] [address] [id number] [address] [place] [address], [place] [address] Jul, [facility] [address] [id number] [address] [place] [address], [place] [address] Jun, [facility] [address] [id number] [address] [place] [address], [place] [address] Jun, [facility] [address] [id number] [address] [place] [address], [place] [address] Jun, [facility] [address] [id number] [address] [place] [address], [place] [address] Jun, [facility] [address] [id number] [address] [place] [address], [place] [address] Jun, [facility] [address] [id number] [address] [place] [address], [place] [address] Jun, [facility] [address] [id number] [address] [place] [address], [place] [address] Jun, [facility] [address] [id number] [address] [place] [address], [place] [address] Jun, [facility] [address] [id number] [address] [place] [address], [place] [address] Jun, [facility] [address] [id number] [address] [place] [address], [place] [address] Jun, [facility] [address] [id number] [address] [place] [address], [place] [address] Jun, [facility] [address] [id number] [address] [place] [address] [address] Jun, [facility] [address] [id number] [address] [place] [address], [place] [address] Jun, [facility] [address] [id number] [address] [place] [address], [place] [address] Jun, [facility] [address] [id number] [address] [place] [address], [place] [address] Jun, [facility] [address] [id number] [address] [place] [address], [place] [address] 18 Jun, 2013 [facility] [address] [id number] [address] [place] [address], [place] [address] 18 Jun, 2013 [facility] [address] [id number] [address] [place] [address], [place] [address] Jun, [facility] [address] [id number] [address] [place] [address], [place] [address] 17 Jun, 2013 [facility] [address] [id number] [address] [place] [address], [place] [address] Jun, [facility] [address] [id number] [address] [place] [address], [place] [address] Jun, [facility] [address] [id number] [address] [place] [address], [place] [address] Jun, [facility] [address] [id number] [address] [place] [address], [place] [address] Jun, [facility] [address] [id number] [address] [place] [address], [place] [address] 05 Jun, 2013 [facility] [address] [id number] [address] [place] [address], [place] [address] 05 Jun, 2013 [facility] [address] [id number] [address] [place] [address], [place] [address] 04 Jun, 2013 [facility] [address] [id number] [address] [place] [address], [place] [address] 04 Jun, 2013 [facility] [address] [id number] [address] [place] [address], [place] [address] 17 May, 2013 [facility] [address] [id number] [address] [place] [address], [place] [address] 17 May, 2013 [facility] [address] [id number] [address] [place] [address], [place] [address] May, [facility] [address] [id number] [address] [place] [address], [place] [address] May, [facility] [address] [id number] [address] [place] [address], [place] [address] May, [facility] [address] [id number] [address] [place] [address], [place] [address] May, [facility] [address] [id number] [address] [place] [address], [place] [address] Apr, [facility] [address] [id number] [address] [place] [address], [place] [address] Apr, [facility] [address] [id number] [address] [place] [address], [place] [address] 30 Apr, 2013 [facility] [address] [id number] [address] [place] [address], [place] [address] 30 Apr, 2013 [facility] [address] [id number] [address] [place] [address], [place] [address] Apr, [facility] [address] [id number] [address] [place] [address], [place] [address] 15 Apr, 2013 [facility] [address] [id number] [address] [place] [address] 15 Apr, 2013 [facility] [address] [id number] [address] [place] [address], [place] [address] Apr, [facility] [address] [id number] [address] [place] [address], [place] [address] Mar, [facility] [address] [id number] [address] [place] [address] 24 Mar, 2013 [facility] [address] [id number] [address] [place] [address], [place] [address] 17 Mar, 2012 [facility] [address] [id number] [address] [place] [address], [place] [address] 17 Mar, 2013 [facility] [address] [id number] [address] [place] [address], [place] [address] 11 Mar, 2013 [facility] [address] [id number] [address] [place] [address], [place] [address] 10 Mar, 2013 [facility] [address] [id number] [address] [place] [address], [place] [address] 05 Mar, 2013 [facility] [address] [id number] [address] [place] [address], [place] [address] 04 Mar, 2013 [facility] [address] [id number] [address] [place] [address], [place] [address] Jan, [facility] [address] [id number] [address] [place] [address], [place] [address] Jan, [facility] [address] [id number] [address] [place] [address], [place] [address] Jan, [facility] [address] [id number] [address] [place] [address], [place] [address] Jan, [facility] [address] [id number] [address] [place] [address], [place] [address] Jan, [facility] [address] [id number] [address] [place] [address], [place] [address] Jan, [facility] [address] [id number] [address] [place] [address], [place] [address] Dec, [facility] [address] [id number] [address] [place] [address], [place] [address] Dec, [facility] [address] [id number] [address] [place] [address], [place] [address] Dec, [facility] [address] [id number] [address] [place] [address], [place] [address] Dec, [facility] [address] [id number] [address] [place] [address], [place] [address] 18 Dec, 2012 [facility] [address] [id number] [address] [place] [address], [place] [address] 17 Dec, 2012 [facility] [address] [id number] [address] [place] [address], [place] [address] 16 Dec, 2012 [facility] [address] [id number] [address] [place] [address], [place] [address] 16 Dec, 2012 [facility] [address] [id number] [address] [place] [address], [place] [address] 15 Dec, 2012 [facility] [address] [id number] [address] [place] [address], [place] [address] Dec, [facility] [address] [id number] [address] [place] [address], [place] [address] Dec, [facility] [address] [id number] [address] [place] [address], [place] [address] Dec, [facility] [address] [id number] [address] [place] [address], [place] [address] Dec, [facility] [address] [id number] [address] [place] [address], [place] [address] Dec, [facility] [address] [id number] [address] [place] [address], [place] [address] Dec, [facility] [address] [id number] [address] [place] [address], [place] [address] Dec, [facility] [address] [id number] [address] [place] [address], [place] [address] October, [facility] [address] [id number] [address] [place] [address], [place] [address] October, [facility] [address] [id number] [address] [place] [address], [place] [address] October, [facility] [address] [id number] [address] [place] [address], [place] [address] October, [facility] [address] [id number] [address] [place] [address], [place] [address] October, [facility] [address] [id number] [address] [place] [address], [place] [address] October, [facility] [address] [id number] [address] [place] [address], [place] [address] October, [facility] [address] [id number] [address] [place] [address], [place] [address] Oct, [facility] [address] [id number] [address] [place] [address], [place] [address] Oct, [facility] [address] [id number] [address] [place] [address], [place] [address] Oct, [facility] [address] [id number] [address] [place] [address], [place] [address] Oct, [facility] [address] [id number] [address] [place] [address], [place] [address] Oct, [facility] [address] [id number] [address] [place] [address], [place] [address] Oct, [facility] [address] [id number] [address] [place] [address], [place] [address] Oct, [facility] [address] [id number] [address] [place] [address], [place] [address] 15 Oct, 2012 [facility] [address] [id number] [address] [place] [address], [place] [address] Oct, [facility] [address] [id number] [address] [place] [address], [place] [address] Oct, [facility] [address] [id number] [address] [place] [address], [place] [address] Oct, [facility] [address] [id number] [address] [place] [address], [place] [address] Oct, [facility] [address] [id number] [address] [place] [address], [place] [address] Aug, [facility] [address] [id number] [address] [place] [address], [place] [address] Aug, [facility] [address] [id number] [address] [place] [address], [place] [address] Aug, [facility] [address] [id number] [address] [place] [address], [place] [address] Aug, [facility] [address] [id number] [address] [place] [address], [place] [address] Aug, [facility] [address] [id number] [address] [place] [address], [place] [address] Aug, [facility] [address] [id number] [address] [place] [address], [place] [address] Aug, [facility] [address] [id number] [address] [place] [address], [place] [address] 14 Aug, 2012 [facility] [address] [id number] [address] [place] [address], [place] [address] Aug, [facility] [address] [id number] [address] [place] [address], [place] [address] Aug, [facility] [address] [id number] [address] [place] [address], [place] [address] Jul, [facility] [address] [id number] [address] [place] [address], [place] [address] Jul, [facility] [address] [id number] [address] [place] [address], [place] [address] Jul, [facility] [address] [id number] [address] [place] [address], [place] [address] Jun, [facility] [address] [id number] [address] [place] [address], [place] [address] Jun, [facility] [address] [id number] [address] [place] [address], [place] [address] 18 Jun, 2012 [facility] [address] [id number] [address] [place] [address], [place] [address] 18 Jun, 2012 [facility] [address] [id number] [address] [place] [address], [place] [address] 18 Jun, 2012 [facility] [address] [id number] [address] [place] [address], [place] [address] 14 Jun, 2012 [facility] [address] [id number] [address] [place] [address], [place] [address] 14 Jun, 2012 [facility] [address] [id number] [address] [place] [address], [place] [address] 13 Jun, 2012 [facility] [address] [id number] [address] [place] [address], [place] [address] 13 Jun, 2012 [facility] [address] [id number] [address] [place] [address], [place] [address] 11 Jun, 2012 [facility] [address] [id number] [address] [place] [address], [place] [address] 11 Jun, 2012 [facility] [address] [id number] [address] [place] [address], [place] [address] 11 Jun, 2012 [facility] [address] [id number] [address] [place] [address], [place] [address] 11 Jun, 2012 [facility] [address] [id number] [address] [place] [address], [place] [address] 07 Jun, 2012 [facility] [address] [id number] [address] [place] [address], [place] [address] 07 Jun, 2012 [facility] [address] [id number] [address] [place] [address], [place] [address] 06 Jun, 2012 [facility] [address] [id number] [address] [place] [address], [place] [address] 06 Jun, 2012 [facility] [address] [id number] [address] [place] [address], [place] [address] Jun, [facility] [address] [id number] [address] [place] [address], [place] [address] Jun, [facility] [address] [id number] [address] [place] [address], [place] [address] Jun, [facility] [address] [id number] [address] [place] [address], [place] [address] Jun, [facility] [address] [id number] [address] [place] [address], [place] [address] Jun, [facility] [address] [id number] [address] [place] [address], [place] [address] Jun, [facility] [address] [id number] [address] [place] [address], [place] [address] May, [facility] [address] [id number] [address] [place] [address], [place] [address] May, [facility] [address] [id number] [address] [place] [address], [place] [address] May, [facility] [address] [id number] [address] [place] [address], [place] [address] May, [facility] [address] [id number] [address] [place] [address], [place] [address] May, [facility] [address] [id number] [address] [place] [address], [place] [address] May, [facility] [address] [id number] [address] [place] [address], [place] [address] May, [facility] [address] [id number] [address] [place] [address], [place] [address] May, [facility] [address] [id number] [address] [place] [address], [place] [address] Apr, [facility] [address] [id number] [address] [place] [address], [place] [address] Apr, [facility] [address] [id number] [address] [place] [id number] Apr, [facility] [address] [id number] [address] [place] [phone] Apr, [facility] [address] [id number] [address] [place] [id number] Apr, [facility] [address] [id number] [address] [place] [address] Apr, [facility] [address] [id number] [address] [place] [address] Apr, [facility] [address] [id number] [address] [place] [address], [place] [address] Apr, [facility] [address] [id number] [address] [place] [id number] Apr, [facility] [address] [id number] [address] [place] [id number] Apr, [facility] [address] [id number] [address] [place] [phone] Apr, [facility] [address] [id number] [address] [place] [id number] Apr, [facility] [address] [id number] [address] [place] [id number] 19 Mar, 2012 [facility] [address] [id number] [address] [place] [id number] 18 Mar, 2012 [facility] [address] [id number] [address] [place] [id number] 12 Mar, 2012 [facility] [address] [id number] [address] [place] [id number] 12 Mar, 2012 [facility] [address] [id number] [address] [place] [id number] 12 Mar, 2012 [facility] [address] [id number] [address] [place] [id number] Mar, [facility] [address] [id number] [address] [place] [address], [place] [address] Mar, [facility] [address] [id number] [address] [place] [address], [place] [address] Jan, [facility] [address] [id number] [address] [place] [address], [place] [address] Jan, [facility] [address] [id number] [address] [place] [address], [place] [id number] Jan, [facility] [address] [id number] [address] [place] [address], [place] [id number] Jan, [facility] [address] [id number] [address] [place] [address], [place] [address] Jan, [facility] [address] [id number] [address] [place] [address], [place] [address] Jan, [facility] [address] [id number] [address] [place] [address], [place] [address] Jan, [facility] [address] [id number] [address] [place] [address], [place] [address] Jan, [facility] [address] [id number] [address] [place] [address], [place] [address] Jan, [facility] [address] [id number] [address] [place] [address], [place] [address] Jan, [facility] [address] [id number] [address] [place] [address], [place] [address] Jan, [facility] [address] [id number] [address] [place] [address], [place] [address] Dec, [facility] [address] [id number] [address] [place] [address], [place] [address] Dec, [facility] [address] [id number] [address] [place] [address], [place] [address] Dec, [facility] [address] [id number] [address] [place] [address], [place] [address] Dec, [facility] [address] [id number] [address] [place] [address], [place] [address] 20 Jan, 2012 [facility] [address] [id number] [address] [place] [address], [place] [address] 19 Jan, 2012 [facility] [address] [id number] [address] [place] [address], [place] [address] 18 Jan, 2012 [facility] [address] [id number] [address] [place] [address], [place] [address] 17 Jan, 2012 [facility] [address] [id number] [address] [place] [address], [place] [address] 16 Jan, 2012 [facility] [address] [id number] [address] [place] [address], [place] [address] Dec, [facility] [address] [id number] [address] [place] [address], [place] [address] Dec, [facility] [address] [id number] [address] [place] [address], [place] [address] Dec, [facility] [address] [id number] [address] [place] [address], [place] [address] Dec, [facility] [address] [id number] [address] [place] [address], [place] [address] Dec, [facility] [address] [id number] [address] [place] [address], [place] [address] Dec, [facility] [address] [id number] [address] [place] [address], [place] [address] Dec, [facility] [address] [id number] [address] [place] [address], [place] [address] 15 Dec, 2011 [facility] [address] [id number] [address] [place] [address], [place] [address] 06 Dec, 2011 [facility] [address] [id number] [address] [place] [address], [place] [address] 05 Dec, 2011 [facility] [address] [id number] [address] [place] [address], [place] [address] October, [facility] [address] [id number] [address] [place] [address], [place] [address] October, [facility] [address] [id number] [address] [place] [address], [place] [address] October, [facility] [address] [id number] [address] [place] [address], [place] [address] October, [facility] [address] [address] [id number] [address] [place] [address], [place] [address] October, [facility] [address] [id number] [address] [place] [address], [place] [address] October, [facility] [address] [id number] [address] [place] [address], [place] [address] Oct, [facility] [address] [id number] [address] [place] [address], [place] [address] Oct, [facility] [address] [id number] [address] [place] [address], [place] [address] Oct, [facility] [address] [id number] [address] [place] [address], [place] [address] Oct, [facility] [address] [id number] [address] [place] [address], [place] [address] Oct, [facility] [address] [id number] [address] [place] [address], [place] [address] Oct, [facility] [address] [id number] [address] [place] [address], [place] [address] Oct, [facility] [address] [id number] [address] [place] [address], [place] [address] Aug, [facility] [address] [id number] [address] [place] [address], [place] [address] Aug, [facility] [address] [id number] [address] [place] [address], [place] [address] Aug, [facility] [address] [id number] [address] [place] [address], [place] [address] 13 Sep, 2011 [facility] [address] [id number] [address] [place] [address], [place] [address] 05 Sep, 2011 [facility] [address] [id number] [address] [place] [address], [place] [address] 05 Sep, 2011 [facility] [address] [id number] [address] [place] [address], [place] [address] 27 Aug, 2011 [facility] [address] [id number] [address] [place] [address], [place] [address] Aug, [facility] [address] [id number] [address] [place] [address], [place] [address] 08 Aug, 2011 [facility] [address] [id number] [address] [place] [address], [place] [address] Jul, [facility] [address] [id number] [address] [place] [address], [place] [address] Jul, [facility] [address] [id number] [address] [place] [address], [place] [address] Jul, [facility] [address] [id number] [address] [place] [address], [place] [address] Jul, [facility] [address] [id number] [address] [place] [address], [place] [address] Jun, [facility] [address] [id number] [address] [place] [address], [place] [address] Jun, [facility] [address] [id number] [address] [place] [address], [place] [address] May, [facility] [address] [id number] [address] [place] [address], [place] [address] May, [facility] [address] [id number] [address] [place] [address], [place] [address] May, [facility] [address] [id number] [address] [place] [address], [place] [address] May, [facility] [address] [id number] [address] [place] [address] May, [facility] [address] [id number] [address] [place] [address] Apr, [facility] [address] [id number] [address] [place] [address] Apr, [facility] [address] [id number] [address] [place] [address] Apr, [facility] [address] [id number] [address] [place] [address] Jan, [facility] [address] [id number] [address] [place] [address] Dec, [facility] [address] [id number] [address] [place] [address] October, [facility] [address] [id number] [address] [place] [address] Jun, [facility] [address] [id number] [address] [place] [address] Apr, [facility] [address] [id number] [address] [place] [address] Apr, [facility] [address] [id number] [address] [place] [address] Apr, [facility] [address] [id number] [address] [place] [phone] Jun, IMMUNIZATIONS No Known Immunizations SOCIAL HISTORY Never Assessed REASON FOR VISIT adderall/valium 11/02/2017 PLAN OF CARE VITAL SIGNS MEDICATIONS Medication Instructions Dosage Frequency Start Date End Date Duration S tatus Adderall 10 mg Orally 3 times a day 1 tablet 8h Oct, 28 days Active Valium 5 mg Orally Twice a [...]
--- OUTSIDE RECORDS SUMMARY | 2020-01-25 13:13 | XMS REPORT ---
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 Name Role Phone Jackie ESCAMILLAYEN Unavailable PROBLEMS Type Condition ICD9-CM Code THE18-CT Code Onset Dates Condition S tatus SNOMED Code Problem Attention deficit R41.840 Active 76 669472 Problem Cannabis abuse F12.10 Active 85513 009 Problem Chronic hepatitis C without hepatic coma B18.2 Active 150301853 Problem Attention deficit hyperactivity disorder (ADHD), combi luciano type F90.2 Active 07617883 Problem Bipolar disorder, in partial remission, most rec ent episode hypomanic F31.71 Active 388630579 Problem H/O laminectomy Z98.89 Active 1616 88291 Problem Bipolar 1 disorder F31.9 Active 3 18684732 Problem Anxiety disorder, unspecified type F41.9 Active 394850260 Problem Other chronic pain G89.29 Active 8 4661283 ALLERGIES Substance Reaction Event Type Date Status Zyprexa Unknown Drug Allergy Oct, Active Amitiza Unknown Non Drug Allergy Oct, Active Hydrocodone Failed UDS (opiates, & THC) Non Drug Allergy Oct, 018 Active Benzodiazepines Failed UDS (opiates, & THC) Non Drug Allergy Oct Active ENCOUNTERS Encounter Location Date Diagnosis [facility] [address] [facility] [id number] [address] [place] [phone] Apr, [facility] [address] [facility] [id number] [address] [place] [place] [phone] Jan, [facility] [address] [facility] [id number] [address] [place] [place] [id number] Dec, Bipolar disorder, in partial remission, most recent episode hypomanic F31.71 [facility] [address] [facility] [id number] [address] [place] [phone] Dec, Bipolar disorder, in partial remission, most recent episode hypomanic F31.71 ; Attention deficit hyperactivity disorder (ADHD), combined type F90.2 ; Anxiety disorder, unspecified type F41.9 and 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 [facility] [address] [id number] [address] [place] [phone] Dec, Bipolar disorder, in partial remission, most recent episode hypomanic F31.71 [facility] [address] [id number] [address] [place] [place] [id number] Dec, Bipolar disorder, in partial remission, most recent episode hypomanic F31.71 [facility] [address] [id number] [address] [place] [id number] October, Bipolar disorder, in partial remission, most recent episode hypomanic F31.71 [facility] [address] [id number] [address] [place] [phone] October, [facility] [address] [id number] [address] [place] [phone] October, [facility] [address] [id number] [address] [place] [phone] Oct, Bipolar disorder, in partial remission, most recent episode hypomanic F31.71 ; Attention deficit hyperactivity disorder (ADHD), combined type F90.2 ; Anxiety disorder, unspecified type F41.9 and Encounter for drug screening Z02.83 [facility] [address] [id number] [address] [place] [id number] Oct, Bipolar disorder, in partial remission, most recent episode hypomanic F31.71 [facility] [address] [id number] [address] [place] [id number] Oct, Bipolar disorder, in partial remission, most recent episode hypomanic F31.71 [facility] [address] [id number] [address] [place] [phone] Aug, Bipolar disorder, in partial remission, most recent episode hypomanic F31.71 [facility] [address] [facility] [id number] [address] [place] [phone] 15 Aug, 2017 Bipolar disorder, in partial remission, most recent episode hypomanic F31.71 [facility] [address] [facility] [id number] [address] [place] [phone] Aug, Bipolar disorder, in partial remission, most recent episode hypomanic F31.71 [facility] [address] [facility] [id number] [address] [place] [phone] Jul, Bipolar disorder, in partial remission, most recent episode hypomanic F31.71 ; Attention deficit hyperactivity disorder (ADHD), combined type F90.2 and Anxiety disorder, unspecified type F41.9 [facility] [address] [facility] [id number] [address] [place] [id number] Jul, Bipolar disorder, in partial remission, most recent episode hypomanic F31.71 [facility] [address] [facility] [id number] [address] [place] [id number] Jun, Bipolar disorder, in partial remission, most recent episode hypomanic F31.71 [facility] [address] [facility] [id number] [address] [place] [id number] May, Bipolar disorder, in partial remission, most recent episode hypomanic F31.71 [facility] [address] [facility] [id number] [address] [place] [phone] May, Bipolar disorder, in partial remission, most recent episode hypomanic F31.71 [facility] [address] [facility] [id number] [address] [place] [id number] Apr, [facility] [address] [facility] [id number] [address] [place] [phone] Apr, Bipolar disorder, in partial remission, most recent episode hypomanic F31.71 ; Attention deficit hyperactivity disorder (ADHD), combined type F90.2 ; Anxiety disorder, unspecified type F41.9 and Cannabis abuse F12.10 [facility] [address] [facility] [id number] [address] [place] [phone] Apr, Attention deficit hyperactiv ity disorder (ADHD), combined type F90.2 [facility] [address] [id number] [address] [place] [phone] Mar, Attention deficit hyperactiv ity disorder (ADHD), combined type F90.2 [facility] [address] [id number] [address] [place] [phone] 14 Mar, 2017 Anxiety disorder, unspecifie d type F41.9 [facility] [address] [id number] [address] [place] [phone] Jan, Attention deficit hyperactiv ity disorder (ADHD), combined type F90.2 [facility] [address] [id number] [address] [place] [phone] Jan, Anxiety disorder, unspecifie d type F41.9 [facility] [address] [id number] [address] [place] [phone] Jan, Other chronic pain G89.29 ; Chronic hepatitis C without hepatic coma B18.2 and Bipolar 1 disorder F31.9 [facility] [address] [id number] [address] [place] [phone] Dec, Attention deficit hyperactiv ity disorder (ADHD), combined type F90.2 [facility] [address] [id number] [address] [place] [phone] Dec, Bipolar disorder, in partial remission, most recent episode hypomanic F31.71 ; Attention deficit hyperactivity disorder (ADHD), combined type F90.2 and Anxiety disorder, unspecified type F41.9 [facility] [address] [id number] [address] [place] [phone] Dec, Bipolar disorder, in partial remission, most recent episode hypomanic F31.71 ; Attention deficit hyperactivity disorder (ADHD), combined type F90.2 and Anxiety disorder, unspecified type F41.9 [facility] [address] [id number] [address] [place] [phone] Dec, Bipolar 1 disorder F31.9 and Attention deficit R41.840 [facility] [address] [id number] [address] [place] [phone] 24 Oct, 2016 Other chronic pain G89.29 ; Alopecia L65.9 and Screening, lipid Z13.220 [facility] [address] [id number] [address] [place] [phone] Oct, [facility] [address] [id number] [address] [place] [phone] Aug, [facility] [address] [id number] [address] [place] [phone] Aug, Eustachian tube dysfunction, right H69.81 ; Vertigo R42 and Other chronic pain G89.29 [facility] [address] [id number] [address] [place] [phone] Aug, [facility] [address] [id number] [address] [place] [phone] Jun, [facility] [address] [id number] [address] [place] [phone] Jun, Low back pain M54.5 and Othe r chronic pain G89.29 [facility] [address] [id number] [address] [place] [phone] Jun, [facility] [address] [id number] [address] [place] [phone] May, [facility] [address] [id number] [address] [place] [phone] Jan, [facility] [address] [id number] [address] [place] [phone] Dec, [facility] [address] [id number] [address] [place] [phone] Dec, [facility] [address] [id number] [address] [place] [phone] Jun, [facility] [address] [id number] [address] [place] [id number] Apr, Eustachian tube dysfunction, unspecified laterality H69.80 ; Hot flashes N95.1 and Encounter for immunization Z23 [facility] [address] [facility] [id number] [address] [place] [phone] Jan, [facility] [address] [id number] [address] [place] [place] [phone] Jan, [facility] [address] [id number] [address] [place] [place] [phone] Jan, [facility] [id number] [place] [phone] Jan, [facility] [id number] [place] [address] Jan, Encounter to establish care V65.8 ; Bipolar 1 disorder 296.7 ; Abdominal pain 789.00 ; Constipation 564.00 ; Hard of hearing 389.9 and Drug abuse 305.90 [facility] [address] [id number] [address] [place] [phone] Dec, [facility] [id number] [place] [phone] October, [facility] [id number] [place] [phone] October, [facility] [address] [id number] [address] [place] [place] [phone] Oct, [facility] [address] [id number] [address] [place] [place] [phone] Oct, [facility] [id number] [place] [phone] Oct, [facility] [address] [id number] [address] [place] [place] [phone] Aug, [facility] [address] [id number] [address] [place] [phone] Aug, [facility] [address] [id number] [address] [place] [address], [place] [phone] Aug, [facility] [address] [id number] [address] [place] [address], [place] [phone] Aug, 2014 [facility] [address] [id number] [address] [place] [address], [place] [address] Aug, 2014 [facility] [address] [id number] [address] [place] [address], [place] [address] Aug, 2014 [facility] [address] [id number] [address] [place] [address], [place] [address] Aug, 2014 [facility] [address] [id number] [address] [place] [address], [place] [address] Aug, 2014 [facility] [address] [id number] [address] [place] [address], [place] [id number] Aug, 2014 [facility] [address] [id number] [address] [place] [address], [place] [address] Aug, 2014 [facility] [address] [id number] [address] [place] [address], [place] [address] Aug, 2014 [facility] [address] [id number] [address] [place] [address], [place] [phone] Aug, 2014 [facility] [address] [id number] [address] [place] [address], [place] [phone] Aug, 2014 [facility] [address] [id number] [address] [place] [address], [place] [id number] Aug, 2014 [facility] [address] [id number] [address] [place] [address], [place] [address] Aug, 2014 [facility] [address] [id number] [address] [place] [address], [place] [address] Jul, [facility] [address] [id number] [address] [place] [address], [place] [id number] Jul, [facility] [address] [id number] [address] [place] [address], [place] [address] Jul, [facility] [address] [id number] [address] [place] [address], [place] [address] Jul, [facility] [address] [id number] [address] [place] [address], [place] [address] Jul, [facility] [address] [id number] [address] [place] [address], [place] [address] Jul, [facility] [address] [id number] [address] [place] [address], [place] [address] Jul, [facility] [address] [id number] [address] [place] [address], [place] [address] Jul, [facility] [address] [id number] [address] [place] [address], [place] [address] Jun, [facility] [address] [id number] [address] [place] [address], [place] [address] Jun, [facility] [address] [id number] [address] [place] [address], [place] [address] Jun, [facility] [address] [id number] [address] [place] [address], [place] [address] Jun, [facility] [address] [id number] [address] [place] [address], [place] [address] Jun, [facility] [address] [id number] [address] [place] [address], [place] [address] Jun, [facility] [address] [id number] [address] [place] [address], [place] [address] Jun, [facility] [address] [id number] [address] [place] [address], [place] [address] Jun, [facility] [address] [id number] [address] [place] [address], [place] [address] Jun, [facility] [address] [id number] [address] [place] [address] [address] Jun, [facility] [address] [id number] [address] [place] [address], [place] [address] Jun, [facility] [address] [id number] [address] [place] [address], [place] [address] May, [facility] [address] [id number] [address] [place] [address], [place] [address] May, [facility] [address] [id number] [address] [place] [address], [place] [address] May, [facility] [address] [id number] [address] [place] [address], [place] [address] May, [facility] [address] [id number] [address] [place] [address], [place] [address] May, [facility] [address] [id number] [address] [place] [address], [place] [address] May, [facility] [address] [id number] [address] [place] [address], [place] [address] May, [facility] [address] [id number] [address] [place] [address], [place] [address] Apr, [facility] [address] [id number] [address] [place] [address], [place] [address] Apr, [facility] [address] [id number] [address] [place] [address], [place] [address] Apr, [facility] [address] [id number] [address] [place] [phone] Apr, [facility] [address] [id number] [address] [place] [address], [place] [address] Apr, [facility] [address] [id number] [address] [place] [address], [place] [address] Apr, [facility] [address] [id number] [address] [place] [address], [place] [address] Mar, [facility] [address] [id number] [facility] [place] [address] 29 Mar, 2013 [facility] [address] [id number] [address] [place] [address], [place] [address] Mar, 2013 [facility] [address] [id number] [address] [place] [address], [place] [address] Mar, [facility] [address] [id number] [address] [place] [address], [place] [address] Mar, [facility] [address] [id number] [address] [place] [address], [place] [address] Mar, [facility] [address] [id number] [address] [place] [address], [place] [address] Jan, [facility] [address] [id number] [address] [place] [address], [place] [address] Jan, [facility] [address] [id number] [address] [place] [address], [place] [address] Jan, [facility] [address] [id number] [address] [place] [address], [place] [address] Jan, [facility] [address] [id number] [address] [place] [address], [place] [address] Dec, [facility] [address] [id number] [address] [place] [address], [place] [address] Dec, [facility] [address] [id number] [address] [place] [address], [place] [address] Dec, [facility] [address] [id number] [address] [place] [address], [place] [address] Dec, [facility] [address] [id number] [address] [place] [address], [place] [address] Dec, [facility] [address] [id number] [address] [place] [address], [place] [address] Dec, [facility] [address] [id number] [address] [place] [address], [place] [address] Dec, [facility] [address] [id number] [address] [place] [address], [place] [address] Dec, [facility] [address] [id number] [address] [place] [address], [place] [address] Dec, [facility] [address] [id number] [address] [place] [address], [place] [address] Dec, [facility] [address] [id number] [address] [place] [address], [place] [address] Dec, [facility] [address] [id number] [address] [place] [address], [place] [address] Dec, [facility] [address] [id number] [address] [place] [address], [place] [address] October, [facility] [address] [id number] [address] [place] [address], [place] [address] October, [facility] [address] [id number] [address] [place] [address], [place] [address] October, [facility] [address] [id number] [address] [place] [address], [place] [address] October, [facility] [address] [id number] [address] [place] [address], [place] [address] October, [facility] [address] [id number] [address] [place] [address], [place] [address] October, [facility] [address] [id number] [address] [place] [address], [place] [address] Oct, [facility] [address] [id number] [address] [place] [address], [place] [address] Oct, [facility] [address] [id number] [address] [place] [address], [place] [address] Oct, [facility] [address] [id number] [address] [place] [address], [place] [address] Oct, [facility] [address] [id number] [address] [place] [address], [place] [address] Oct, [facility] [address] [id number] [facility] [place] [address] Oct, [facility] [address] [id number] [address] [place] [address], [place] [address] Oct, [facility] [address] [id number] [address] [place] [address], [place] [address] Oct, [facility] [address] [id number] [address] [place] [address], [place] [address] Oct, [facility] [address] [id number] [address] [place] [address], [place] [address] Oct, [facility] [address] [id number] [address] [place] [address], [place] [address] Oct, [facility] [address] [id number] [address] [place] [address], [place] [address] Oct, [facility] [address] [id number] [address] [place] [address], [place] [address] Aug, [facility] [address] [id number] [address] [place] [address], [place] [address] Aug, [facility] [address] [id number] [address] [place] [address], [place] [address] Aug, [facility] [address] [id number] [address] [place] [address], [place] [address] Aug, [facility] [address] [id number] [address] [place] [address], [place] [address] 05 Aug, 2013 [facility] [address] [id number] [address] [place] [address], [place] [address] 05 Aug, 2013 [facility] [address] [id number] [address] [place] [address], [place] [address] 04 Aug, 2013 [facility] [address] [id number] [address] [place] [address], [place] [address] Aug, [facility] [address] [id number] [address] [place] [address], [place] [address] Aug, [facility] [address] [id number] [address] [place] [address], [place] [address] Aug, [facility] [address] [id number] [address] [place] [address], [place] [address] 24 Aug, 2013 [facility] [address] [id number] [address] [place] [address], [place] [address] Aug, [facility] [address] [id number] [address] [place] [address], [place] [address] Aug, [facility] [address] [id number] [address] [place] [address], [place] [address] 20 Aug, 2013 [facility] [address] [id number] [address] [place] [address], [place] [address] 14 Aug, 2013 [facility] [address] [id number] [address] [place] [address], [place] [address] 14 Aug, 2013 [facility] [address] [id number] [address] [place] [address], [place] [id number] 14 Aug, 2013 [facility] [address] [id number] [address] [place] [address], [place] [address] 14 Aug, 2013 [facility] [address] [id number] [address] [place] [address], [place] [address] 07 Aug, 2013 [facility] [address] [id number] [address] [place] [address], [place] [address] 07 Aug, 2013 [facility] [address] [id number] [address] [place] [address], [place] [address] 06 Aug, 2013 [facility] [address] [id number] [address] [place] [address], [place] [address] 06 Aug, 2013 [facility] [address] [id number] [address] [place] [address], [place] [address] 04 Aug, 2013 [facility] [address] [id number] [address] [place] [address], [place] [address] 04 Aug, 2013 [facility] [address] [id number] [address] [place] [address], [place] [address] Aug, [facility] [address] [id number] [address] [place] [address], [place] [address] Jul, [facility] [address] [id number] [address] [place] [address], [place] [address] Jul, [facility] [address] [id number] [address] [place] [address], [place] [address] Jul, [facility] [address] [id number] [address] [place] [address], [place] [address] Jul, [facility] [address] [id number] [address] [place] [address], [place] [address] Jul, [facility] [address] [id number] [address] [place] [address], [place] [address] Jul, [facility] [address] [id number] [address] [place] [address], [place] [address] Jul, [facility] [address] [id number] [address] [place] [address], [place] [address] Jul, [facility] [address] [id number] [address] [place] [address], [place] [address] Jul, [facility] [address] [id number] [address] [place] [address], [place] [address] Jul, [facility] [address] [id number] [address] [place] [address], [place] [address] Jul, [facility] [address] [id number] [address] [place] [address], [place] [address] Jul, [facility] [address] [id number] [address] [place] [address], [place] [address] Jul, [facility] [address] [id number] [address] [place] [address], [place] [address] Jul, [facility] [address] [id number] [address] [place] [address], [place] [address] Jul, [facility] [address] [id number] [address] [place] [address], [place] [address] Jul, [facility] [address] [id number] [address] [place] [address], [place] [address] Jul, [facility] [address] [id number] [address] [place] [address], [place] [address] Jul, [facility] [place] [address] [id number] [address] [place] [address], [place] [address] Jul, [facility] [address] [id number] [address] [place] [address], [place] [address] Jul, [facility] [address] [id number] [address] [place] [address], [place] [address] Jun, [facility] [address] [id number] [address] [place] [address], [place] [address] Jun, [facility] [address] [id number] [address] [place] [address], [place] [address] Jun, [facility] [address] [id number] [address] [place] [address], [place] [address] Jun, [facility] [address] [id number] [address] [place] [address], [place] [address] Jun, [facility] [address] [id number] [address] [place] [address], [place] [address] Jun, [facility] [address] [id number] [address] [place] [address], [place] [address] Jun, [facility] [address] [id number] [address] [place] [address], [place] [address] Jun, [facility] [address] [id number] [address] [place] [address], [place] [address] 24 Jun, 2013 [facility] [address] [id number] [address] [place] [address], [place] [address] Jun, [facility] [address] [id number] [address] [place] [address], [place] [address] Jun, [facility] [address] [id number] [address] [place] [address], [place] [address] Jun, [facility] [address] [id number] [address] [place] [address], [place] [address] Jun, [facility] [address] [id number] [address] [place] [address], [place] [address] Jun, [facility] [address] [id number] [address] [place] [address], [place] [address] Jun, [facility] [address] [id number] [address] [place] [address], [place] [address] 18 Jun, 2013 [facility] [address] [id number] [address] [place] [address], [place] [address] 18 Jun, 2013 [facility] [address] [id number] [address] [place] [address], [place] [address] 17 Jun, 2013 [facility] [address] [id number] [address] [place] [address], [place] [address] 17 Jun, 2013 [facility] [address] [id number] [address] [place] [address], [place] [address] 13 Jun, 2013 [facility] [address] [id number] [address] [place] [address], [place] [address] 12 Jun, 2013 [facility] [address] [id number] [address] [place] [address], [place] [address] 12 Jun, 2013 [facility] [address] [id number] [address] [place] [address], [place] [address] 09 Jun, 2013 [facility] [address] [id number] [address] [place] [address], [place] [address] 05 Jun, 2013 [facility] [address] [id number] [address] [place] [address], [place] [address] 05 Jun, 2013 [facility] [address] [id number] [address] [place] [address], [place] [address] Jun, [facility] [address] [id number] [address] [place] [address], [place] [address] Jun, [facility] [address] [id number] [address] [place] [address], [place] [address] May, [facility] [address] [id number] [address] [place] [address], [place] [address] May, [facility] [address] [id number] [address] [place] [address], [place] [address] May, [facility] [address] [id number] [address] [place] [address], [place] [address] May, [facility] [address] [id number] [address] [place] [address], [place] [address] May, [facility] [address] [id number] [address] [place] [address], [place] [address] May, [facility] [address] [id number] [address] [place] [address], [place] [address] Apr, [facility] [address] [id number] [address] [place] [address], [place] [address] Apr, [facility] [address] [id number] [address] [place] [address], [place] [address] Apr, [facility] [address] [id number] [address] [place] [address], [place] [address] Apr, [facility] [address] [id number] [address] [place] [address], [place] [address] Apr, [facility] [address] [id number] [address] [place] [address], [place] [address] Apr, [facility] [address] [id number] [address] [place] [address], [place] [address] Apr, [facility] [address] [id number] [address] [place] [address], [place] [address] Apr, [facility] [address] [id number] [address] [place] [address], [place] [address] 26 Mar, 2012 [facility] [address] [id number] [address] [place] [address], [place] [address] 24 Mar, 2012 [facility] [address] [id number] [address] [place] [address], [place] [address] 17 Mar, 2012 [facility] [address] [id number] [address] [place] [address], [place] [address] 17 Mar, 2012 [facility] [address] [id number] [address] [place] [address], [place] [address] 11 Mar, 2012 [facility] [address] [id number] [address] [place] [address], [place] [address] 10 Mar, 2012 [facility] [address] [id number] [address] [place] [address], [place] [address] 05 Mar, 2013 [facility] [address] [id number] [address] [place] [address], [place] [address] 04 Mar, 2013 [facility] [address] [id number] [address] [place] [address], [place] [address] Jan, [facility] [address] [id number] [address] [place] [address], [place] [address] Jan, [facility] [address] [id number] [address] [place] [address], [place] [address] Jan, [facility] [address] [id number] [address] [place] [address], [place] [address] Jan, [facility] [address] [id number] [address] [place] [address], [place] [address] Jan, [facility] [address] [id number] [address] [place] [address], [place] [address] 05 Jan, 2013 [facility] [address] [id number] [address] [place] [address], [place] [address] Dec, [facility] [address] [id number] [address] [address] 24 Dec, 2012 [facility] [address] [id number] [facility] [place] [address] 22 Dec, 2012 [facility] [address] [id number] [address] [place] [address], [place] [address] 19 Dec, 2012 [facility] [address] [id number] [address] [place] [address], [place] [address] 18 Dec, 2012 [facility] [address] [id number] [address] [place] [address], [place] [address] 17 Dec, 2012 [facility] [address] [id number] [address] [place] [address], [place] [address] 16 Dec, 2012 [facility] [address] [id number] [address] [place] [address], [place] [address] 16 Dec, 2012 [facility] [address] [id number] [address] [place] [address], [place] [address] 15 Dec, 2012 [facility] [address] [id number] [address] [place] [address], [place] [address] Dec, [facility] [address] [id number] [address] [place] [address], [place] [address] 28 Dec, 2012 [facility] [address] [id number] [address] [place] [address], [place] [address] Dec, [facility] [address] [id number] [address] [place] [address], [place] [address] Dec, [facility] [address] [id number] [address] [place] [address], [place] [address] Dec, [facility] [address] [id number] [address] [place] [address], [place] [address] Dec, [facility] [address] [id number] [address] [place] [address], [place] [address] Dec, [facility] [address] [id number] [address] [place] [address], [place] [address] October, [facility] [address] [id number] [address] [place] [address], [place] [address] October, [facility] [place] [address] [id number] [address] [place] [address], [place] [address] October, [facility] [address] [id number] [address] [place] [address], [place] [address] October, [facility] [address] [id number] [address] [place] [address], [place] [address] October, [facility] [address] [id number] [address] [place] [address], [place] [address] October, [facility] [address] [id number] [address] [place] [address], [place] [address] October, [facility] [address] [id number] [address] [place] [address], [place] [address] Oct, [facility] [address] [id number] [address] [place] [address], [place] [address] Oct, [facility] [address] [id number] [address] [place] [address], [place] [address] Oct, [facility] [address] [id number] [address] [place] [address], [place] [address] Oct, [facility] [address] [id number] [address] [place] [address], [place] [address] Oct, [facility] [address] [id number] [address] [place] [address], [place] [address] 18 Oct, 2012 [facility] [address] [id number] [address] [place] [address], [place] [address] 17 Oct, 2012 [facility] [address] [id number] [address] [place] [address], [place] [address] 15 Oct, 2012 [facility] [address] [id number] [address] [place] [address], [place] [address] 12 Oct, 2012 [facility] [address] [id number] [address] [place] [address], [place] [address] Oct, [facility] [place] [address] [id number] [address] [place] [address], [place] [address] Oct, [facility] [address] [id number] [address] [place] [address], [place] [address] Oct, [facility] [address] [id number] [address] [place] [address], [place] [address] Aug, [facility] [address] [id number] [address] [place] [address], [place] [address] Aug, [facility] [address] [id number] [address] [place] [address], [place] [address] Aug, [facility] [address] [id number] [address] [place] [address], [place] [address] Aug, [facility] [address] [id number] [address] [place] [address], [place] [address] Aug, [facility] [address] [id number] [address] [place] [address], [place] [address] Aug, [facility] [address] [id number] [address] [place] [address], [place] [address] Aug, [facility] [address] [id number] [address] [place] [address], [place] [address] Aug, [facility] [place] [address] [id number] [address] [place] [address], [place] [address] Aug, [facility] [address] [id number] [address] [place] [address], [place] [address] Aug, [facility] [address] [id number] [address] [place] [address], [place] [address] Jul, [facility] [address] [id number] [address] [place] [address], [place] [address] Jul, [facility] [address] [id number] [address] [place] [address], [place] [address] Jul, [facility] [address] [id number] [address] [place] [address], [place] [address] 20 Jun, 2012 [facility] [place] [address] [id number] [address] [place] [address], [place] [address] 18 Jun, 2012 [facility] [address] [id number] [address] [place] [address], [place] [address] 18 Jun, 2012 [facility] [place] [address] [id number] [address] [place] [address], [place] [address] 18 Jun, 2012 [facility] [address] [id number] [address] [place] [address], [place] [address] 18 Jun, 2012 [facility] [place] [address] [id number] [address] [place] [address], [place] [address] 14 Jun, 2012 [facility] [place] [address] [id number] [address] [place] [address], [place] [address] 14 Jun, 2012 [facility] [place] [address] [id number] [address] [place] [address], [place] [address] 13 Jun, 2012 [facility] [address] [id number] [address] [place] [address], [place] [address] 13 Jun, 2012 [facility] [place] [address] [id number] [address] [place] [address], [place] [address] 11 Jun, 2012 [facility] [address] [id number] [address] [place] [address], [place] [id number] 11 Jun, 2012 [facility] [place] [address] [id number] [address] [place] [address], [place] [id number] 11 Jun, 2012 [facility] [address] [id number] [address] [place] [address], [place] [id number] 11 Jun, 2012 [facility] [address] [id number] [address] [place] [address], [place] [id number] 07 Jun, 2012 [facility] [address] [id number] [address] [place] [address], [place] [id number] 07 Jun, 2012 [facility] [address] [id number] [address] [place] [address], [place] [address] Jun, [facility] [address] [id number] [address] [place] [address], [place] [address] Jun, [facility] [address] [id number] [address] [place] [address], [place] [id number] Jun, [facility] [address] [id number] [address] [place] [address], [place] [id number] Jun, [facility] [address] [id number] [address] [place] [address], [place] [id number] Jun, [facility] [address] [id number] [address] [place] [address], [place] [id number] Jun, [facility] [address] [id number] [address] [place] [address], [place] [id number] Jun, [facility] [address] [id number] [address] [place] [address], [place] [address] Jun, [facility] [address] [id number] [address] [place] [address], [place] [address] May, [facility] [address] [id number] [address] [place] [address], [place] [address] May, [facility] [address] [id number] [address] [phone] May, [facility] [address] [id number] [address] [place] [phone] May, [facility] [address] [id number] [address] [place] [place] [phone] May, [facility] [address] [id number] [address] [place] [address], [place] [id number] May, [facility] [address] [id number] [address] [place] [address], [place] [address] May, [facility] [address] [id number] [address] [place] [address], [place] [address] May, [facility] [address] [id number] [address] [place] [id number] 30 Apr, 2012 [facility] [address] [id number] [address] [place] [id number] 30 Apr, 2012 [facility] [address] [id number] [address] [place] [id number] 29 Apr, 2012 [facility] [address] [id number] [address] [place] [place] [id number] Apr, [facility] [address] [id number] [address] [place] [id number] 16 Apr, 2012 [facility] [address] [id number] [address] [place] [phone] Apr, [facility] [address] [id number] [address] [place] [phone] Apr, [facility] [address] [id number] [address] [place] [id number] Apr, [facility] [address] [id number] [address] [place] [phone] 09 Apr, 2012 [facility] [address] [id number] [address] [place] [id number] 08 Apr, 2012 [facility] [address] [id number] [address] [place] [id number] 04 Apr, 2012 [facility] [address] [id number] [address] [place] [id number] 02 Apr, 2012 [facility] [address] [id number] [address] [place] [id number] 19 Mar, 2011 [facility] [address] [id number] [address] [place] [place] [id number] 18 Sep, 2011 [facility] [address] [id number] [address] [place] [place] [id number] 12 Mar, 2012 [facility] [address] [id number] [address] [place] [id number] 12 Mar, 2011 [facility] [address] [id number] [facility] [id number] Mar, [facility] [address] [id number] [address] [place] [id number] Mar, [facility] [place] [address] [id number] [address] [place] [address], [place] [id number] Mar, [facility] [place] [address] [id number] [address] [place] [address], [place] [id number] Jan, [facility] [place] [address] [id number] [address] [place] [address], [place] [id number] Jan, [facility] [address] [id number] [address] [place] [address], [place] [id number] Jan, [facility] [address] [id number] [address] [place] [address], [place] [id number] Jan, [facility] [place] [address] [id number] [address] [place] [address], [place] [id number] Jan, [facility] [address] [id number] [address] [place] [address], [place] [id number] Jan, [facility] [place] [address] [id number] [address] [place] [address], [place] [id number] Jan, [facility] [address] [id number] [address] [place] [address], [place] [id number] Jan, [facility] [address] [id number] [address] [place] [address], [place] [id number] Jan, [facility] [address] [id number] [address] [place] [address], [place] [id number] Jan, [facility] [address] [id number] [address] [place] [address], [place] [id number] Jan, [facility] [address] [id number] [address] [place] [address], [place] [address] Dec, [facility] [place] [address] [id number] [address] [place] [address], [place] [address] Dec, [facility] [address] [id number] [address] [place] [address], [place] [address] 26 Jan, 2012 [facility] [address] [id number] [address] [place] [address], [place] [address] 26 Jan, 2012 [facility] [address] [id number] [address] [place] [address], [place] [address] 20 Jan, 2012 [facility] [address] [id number] [address] [place] [address], [place] [address] 19 Jan, 2012 [facility] [address] [id number] [address] [place] [address], [place] [address] 18 Jan, 2012 [facility] [address] [id number] [address] [place] [address], [place] [address] 17 Jan, 2012 [facility] [address] [id number] [address] [place] [address], [place] [address] 16 Jan, 2012 [facility] [address] [id number] [address] [place] [address], [place] [address] 13 Jan, 2012 [facility] [address] [id number] [address] [place] [address], [place] [address] Dec, [facility] [address] [id number] [address] [place] [address], [place] [address] 02 Jan, 2012 [facility] [address] [id number] [address] [place] [address], [place] [address] Dec, [facility] [address] [id number] [address] [place] [address], [place] [address] 27 Dec, 2011 [facility] [address] [id number] [address] [place] [address], [place] [address] Dec, [facility] [address] [id number] [address] [place] [address], [place] [address] 18 Dec, 2011 [facility] [address] [id number] [address] [place] [address], [place] [address] 15 Dec, 2011 [facility] [address] [id number] [address] [place] [address], [place] [address] Dec, [facility] [place] [address] [id number] [address] [place] [address], [place] [address] Dec, [facility] [address] [id number] [address] [place] [address], [place] [address] October, [facility] [place] [address] [id number] [address] [place] [address], [place] [address] October, [facility] [address] [id number] [address] [place] [address], [place] [address] October, [facility] [address] [id number] [address] [place] [address], [place] [address] October, [facility] [address] [id number] [address] [place] [address], [place] [address] October, [facility] [place] [address] [id number] [address] [place] [address], [place] [address] October, [facility] [place] [address] [id number] [address] [place] [address], [place] [address] Oct, [facility] [place] [address] [id number] [address] [place] [address], [place] [address] Oct, [facility] [place] [address] [id number] [address] [place] [address], [place] [address] Oct, [facility] [place] [address] [id number] [address] [place] [address], [place] [address] Oct, [facility] [address] [id number] [address] [place] [address], [place] [address] Oct, [facility] [address] [id number] [address] [place] [address], [place] [address] Oct, [facility] [address] [id number] [address] [place] [address], [place] [address] Oct, [facility] [address] [id number] [address] [place] [address], [place] [address] Aug, [facility] [address] [id number] [facility] [place] [address] 29 Sep, 2011 [facility] [address] [id number] [address] [place] [address], [place] [address] 19 Sep, 2011 [facility] [address] [id number] [address] [place] [address], [place] [address] 13 Sep, 2011 [facility] [address] [id number] [address] [place] [address], [place] [address] 05 Sep, 2011 [facility] [address] [id number] [address] [place] [address], [place] [address] 05 Sep, 2011 [facility] [address] [id number] [address] [place] [address], [place] [address] 27 Aug, 2011 [facility] [address] [id number] [address] [place] [address], [place] [address] Aug, [facility] [address] [id number] [address] [place] [address], [place] [address] 08 Aug, 2011 [facility] [address] [id number] [address] [place] [address], [place] [address] Jul, [facility] [address] [id number] [address] [place] [address], [place] [address] Jul, [facility] [address] [id number] [address] [place] [address], [place] [address] Jul, [facility] [address] [id number] [address] [place] [address], [place] [address] Jul, [facility] [address] [id number] [address] [place] [address], [place] [address] Jun, [facility] [address] [id number] [address] [place] [address], [place] [address] Jun, [facility] [address] [id number] [address] [place] [address], [place] [address] 29 May, 2011 [facility] [address] [id number] [address] [address] May, [facility] [address] [id number] [address] [place] [id number] May, [facility] [address] [id number] [address] [place] [id number] May, [facility] [address] [id number] [address] [place] [id number] May, [facility] [address] [id number] [address] [place] [id number] Apr, [facility] [address] [id number] [address] [place] [id number] Apr, [facility] [address] [id number] [address] [place] [phone] Apr, [facility] [address] [id number] [address] [place] [phone] Jan, [facility] [address] [id number] [address] [place] [phone] Dec, [facility] [address] [id number] [address] [place] [id number] October, [facility] [address] [id number] [address] [place] [phone] Jun, [facility] [address] [id number] [address] [place] [phone] Apr, [facility] [address] [id number] [address] [place] [id number] Apr, [facility] [address] [id number] [address] [place] [phone] Apr, [facility] [address] [id number] [address] [place] [phone] Jun, IMMUNIZATIONS No Known Immunizations SOCIAL HISTORY Never Assessed REASON FOR VISIT SUN f/u Kika, Calendar of stimulant due dates prepared in red notebook PLAN OF CARE Activity Details Follow Up 3 Months Reason:BH f/u Pending Test PDM - AMPHETAMINES W/ REFLEX d/l ISOMERS VITAL SIGNS Height 69 in 2017-10-26 Weight 209.9 lbs 2017-10-26 Heart Rate 96 bpm 2017-10-26 Respiratory Rate 24 2017-10-26 BMI 30.99 kg/m2 2017-10-26 Blood pressure systolic 130 mmHg 2017-10-26 Blood pressure diastolic 96 mmHg 2017-10-26 MEDICATIONS Medication Instructions Dosage Frequency Start Date End Date Duration S tatus Prazosin HCl 5 MG TAKE ONE CAPSULE BY MOUTH ONCE DAILY AT BEDTIM E Active HydrOXYzine HCl 50 mg Orally 3 times a day 1 tablet as needed 8h 30 days Active Gabapentin 800 MG Orally 4 times a day 1 tablet 6h 30 Active Adderall 10 mg Orally 3 times a day 1 tablet 8h 05 Oct, 2017 Active Valium 5 mg Orally Twice a day 1 tablet as needed 12h Active Seroquel 400 MG TAKE TWO TABLETS BY MOUTH ONCE DAILY AT BEDTIME Active Plus Iron 29-1 MG Orally Once a day 1 tablet 24h 24 Ap r, 2017 90 days Active RESULTS No Results PROCEDURES Procedure Date Ordered Result [facility] VIS[facility] ESTABLISHED PATIENT October 26, 2017 INSTRUCTIONS MEDICATIONS ADMINISTERED No Known Medications MEDICAL (GENERAL) HISTORY Type Description Date Medical History Psychiatric disorder Medical History Hard of hearing Surgical History Neofibrous tumor Surgical History back injection Hospitalization History Intestinal blockage Hospitalization History past psychiatric hospitalizations x2
--- OUTSIDE RECORDS SUMMARY | 2020-01-25 13:14 | XMS REPORT ---
Author Author Ana ESCAMILLA KWAME [facility] Address [address] [place] [address] Care Team Providers Care Insurance Plan Specialist Name Role Phone FRANCINE, KWAME Unavailable PROBLEMS Type Condition ICD9-CM Code [id number] Code Onset Dates Condition S tatus SNOMED Code Problem Attention deficit R41.840 Active 76 347148 Problem Cannabis abuse F12.10 Active 26156 009 Problem Chronic hepatitis C without hepatic coma B18.2 Active 889361097 Problem Attention deficit hyperactivity disorder (ADHD), combi luciano type F90.2 Active 34930167 Problem Bipolar disorder, in partial remission, most rec ent episode hypomanic F31.71 Active 344672523 Problem H/O laminectomy Z98.89 Active 1616 41201 Problem Bipolar 1 disorder F31.9 Active 3 66360450 Problem Anxiety disorder, unspecified type F41.9 Active 116973320 Problem Other chronic pain G89.29 Active 8 6566649 ALLERGIES No Information ENCOUNTERS Encounter Location Date Diagnosis [facility] [address] [facility] [id number] [address] [place] [phone] Jan, [facility] [address] [facility] [id number] [address] [place] [address] Dec, [facility] [address] [facility] [id number] [address] [place] [address] Dec, Bipolar disorder, in partial remission, most recent episode hypomanic F31.71 [facility] [address] [facility] [id number] [address] [place] [address] Dec, Bipolar disorder, in partial remission, most recent episode hypomanic F31.71 [facility] [address] [facility] [id number] [address] [place] [address] October, Bipolar disorder, in partial remission, most recent episode hypomanic F31.71 [facility] [address] [id number] [address] [place] [address] October, [facility] [address] [id number] [address] [place] [address] October, [facility] [address] [id number] [address] [place] [address] Oct, Bipolar disorder, in partial remission, most recent episode hypomanic F31.71 ; Attention deficit hyperactivity disorder (ADHD), combined type F90.2 ; Anxiety disorder, unspecified type F41.9 and Encounter for drug screening Z02.83 [facility] [address] [id number] [address] [place] [address] Oct, Bipolar disorder, in partial remission, most recent episode hypomanic F31.71 [facility] [address] [id number] [address] [place] [address] Oct, Bipolar disorder, in partial remission, most recent episode hypomanic F31.71 [facility] [address] [id number] [address] [place] [address] Aug, Bipolar disorder, in partial remission, most recent episode hypomanic F31.71 [facility] [address] [id number] [address] [place] [address] Aug, Bipolar disorder, in partial remission, most recent episode hypomanic F31.71 [facility] [address] [id number] [address] [place] [address] Aug, Bipolar disorder, in partial remission, most recent episode hypomanic F31.71 [facility] [address] [id number] [address] [place] [address] Jul, Bipolar disorder, in partial remission, most recent episode hypomanic F31.71 ; Attention deficit hyperactivity disorder (ADHD), combined type F90.2 and Anxiety disorder, unspecified type F41.9 [facility] [address] [id number] [address] [place] [address] Jul, Bipolar disorder, in partial remission, most recent episode hypomanic F31.71 [facility] [address] [id number] [address] [place] [address] Jun, Bipolar disorder, in partial remission, most recent episode hypomanic F31.71 [facility] [address] [id number] [address] [place] [address] May, Bipolar disorder, in partial remission, most recent episode hypomanic F31.71 [facility] [address] [id number] [address] [place] [address] May, Bipolar disorder, in partial remission, most recent episode hypomanic F31.71 [facility] [address] [id number] [address] [place] [address] Apr, [facility] [address] [id number] [address] [place] [address] Apr, Bipolar disorder, in partial remission, most recent episode hypomanic F31.71 ; Attention deficit hyperactivity disorder (ADHD), combined type F90.2 ; Anxiety disorder, unspecified type F41.9 and Cannabis abuse F12.10 [facility] [address] [id number] [address] [place] [address] Apr, Attention deficit hyperactiv ity disorder (ADHD), combined type F90.2 [facility] [address] [facility] [id number] [address] [place] [address] 21 Mar, 2017 Attention deficit hyperactiv ity disorder (ADHD), combined type F90.2 [facility] [address] [id number] [address] [place] [address] 14 Mar, 2017 Anxiety disorder, unspecifie d type F41.9 [facility] [address] [id number] [address] [place] [phone] 18 Jan, 2017 Attention deficit hyperactiv ity disorder (ADHD), combined type F90.2 [facility] [address] [id number] [address] [place] [address] 16 Jan, 2017 Anxiety disorder, unspecifie d type F41.9 [facility] [address] [id number] [address] [place] [address] Jan, Other chronic pain G89.29 ; Chronic hepatitis C without hepatic coma B18.2 and Bipolar 1 disorder F31.9 [facility] [address] [id number] [address] [place] [address] Dec, Attention deficit hyperactiv ity disorder (ADHD), combined type F90.2 [facility] [address] [facility] [id number] [address] [place] [address] Dec, Bipolar disorder, in partial remission, most recent episode hypomanic F31.71 ; Attention deficit hyperactivity disorder (ADHD), combined type F90.2 and Anxiety disorder, unspecified type F41.9 [facility] [address] [facility] [id number] [address] [place] [address] Dec, Bipolar disorder, in partial remission, most recent episode hypomanic F31.71 ; Attention deficit hyperactivity disorder (ADHD), combined type F90.2 and Anxiety disorder, unspecified type F41.9 [facility] [address] [facility] [id number] [address] [place] [address] Dec, Bipolar 1 disorder F31.9 and Attention deficit R41.840 [facility] [address] [facility] [id number] [address] [place] [address] Oct, Other chronic pain G89.29 ; Alopecia L65.9 and Screening, lipid Z13.220 [facility] [address] [facility] [id number] [address] [place] [address] Oct, [facility] [address] [facility] [id number] [address] [place] [phone] Aug, [facility] [address] [facility] [id number] [address] [place] [address] Aug, Eustachian tube dysfunction, right H69.81 ; Vertigo R42 and Other chronic pain G89.29 [facility] [address] [facility] [id number] [address] [place] [address] Aug, [facility] [address] [id number] [address] [place] [address] Jun, [facility] [address] [id number] [address] [place] [address] Jun, Low back pain M54.5 and Othe r chronic pain G89.29 [facility] [address] [id number] [address] [place] [address] Jun, [facility] [address] [id number] [address] [place] [address] May, [facility] [address] [id number] [address] [place] [address] Jan, [facility] [address] [id number] [address] [place] [phone] Dec, [facility] [address] [facility] [id number] [address] [place] [address] Dec, [facility] [address] [id number] [address] [place] [address] Jun, [facility] [address] [facility] [id number] [address] [place] [address] Apr, Eustachian tube dysfunction, unspecified laterality H69.80 ; Hot flashes N95.1 and Encounter for immunization Z23 [facility] [address] [id number] [address] [place] [address] Jan, [facility] [address] [id number] [address] [place] [address] Jan, [facility] [address] [facility] [id number] [address] [place] [address] Jan, [facility] [address] [facility] [id number] [address] [place] [phone] Jan, [facility] [address] [facility] [id number] [address] [place] [address] Jan, Encounter to establish care V65.8 ; Bipolar 1 disorder 296.7 ; Abdominal pain 789.00 ; Constipation 564.00 ; Hard of hearing 389.9 and Drug abuse 305.90 [facility] [address] [id number] [address] [place] [address] Dec, [facility] [address] [facility] [id number] [address] [place] [address] October, [facility] [address] [id number] [address] [place] [address] October, [facility] [address] [id number] [address] [place] [address] Oct, [facility] [address] [facility] [id number] [address] [place] [address] Oct, [facility] [address] [facility] [id number] [address] [place] [phone] Oct, [facility] [address] [id number] [address] [place] [address] Aug, [facility] [address] [id number] [address] [place] [address] Aug, [facility] [address] [facility] [id number] [address] [place] [phone] Aug, [facility] [address] [id number] [address] [place] [address] Aug, [facility] [address] [id number] [address] [place] [address] Aug, [facility] [address] [id number] [address] [place] [address] Aug, [facility] [address] [facility] [id number] [address] [place] [address] Aug, [facility] [address] [facility] [id number] [address] [place] [address] Aug, [facility] [address] [id number] [address] [place] [address], [place] [address] Aug, 2014 [facility] [address] [id number] [address] [place] [address], [place] [address] Aug, 2014 [facility] [address] [id number] [address] [place] [address], [place] [address] Aug, 2014 [facility] [address] [id number] [address] [place] [address], [place] [address] Aug, 2014 [facility] [address] [id number] [address] [place] [address], [place] [address] Aug, 2014 [facility] [address] [id number] [address] [place] [address], [place] [address] Aug, 2014 [facility] [address] [id number] [address] [place] [address], [place] [address] Aug, [facility] [address] [id number] [address] [place] [address], [place] [address] Jul, [facility] [address] [id number] [address] [place] [address], [place] [address] Jul, [facility] [address] [id number] [address] [place] [address] Jul, [facility] [address] [id number] [address] [place] [address] Jul, [facility] [address] [id number] [address] [place] [address] Jul, [facility] [address] [id number] [address] [place] [address], [place] [address] Jul, [facility] [address] [id number] [address] [place] [address], [place] [address] Jul, [facility] [address] [id number] [address] [place] [address] Jul, [facility] [address] [id number] [address] [place] [address] Jun, [facility] [address] [id number] [address] [place] [address], [place] [address] Jun, [facility] [address] [id number] [address] [place] [address], [place] [address] Jun, [facility] [address] [id number] [address] [place] [address], [place] [address] Jun, [facility] [address] [id number] [address] [place] [address], [place] [address] Jun, [facility] [address] [id number] [address] [place] [address], [place] [address] Jun, [facility] [address] [id number] [address] [place] [address], [place] [address] Jun, [facility] [address] [id number] [address] [place] [address], [place] [address] Jun, [facility] [address] [id number] [address] [place] [address], [place] [address] Jun, [facility] [address] [id number] [address] [place] [address], [place] [address] Jun, [facility] [address] [id number] [address] [place] [address], [place] [address] Jun, [facility] [address] [id number] [address] [place] [address], [place] [address] May, [facility] [address] [id number] [address] [place] [address], [place] [address] May, [facility] [address] [id number] [address] [place] [address], [place] [address] May, [facility] [address] [id number] [address] [place] [address], [place] [address] May, [facility] [address] [id number] [address] [place] [address], [place] [address] May, [facility] [address] [id number] [address] [place] [address], [place] [address] May, [facility] [address] [id number] [address] [place] [address], [place] [address] May, [facility] [address] [id number] [address] [place] [address], [place] [address] Apr, [facility] [address] [id number] [address] [place] [address], [place] [address] Apr, [facility] [address] [id number] [address] [place] [address], [place] [address] Apr, [facility] [address] [id number] [address] [place] [address], [place] [address] Apr, [facility] [address] [id number] [address] [place] [address], [place] [address] Apr, [facility] [address] [id number] [address] [place] [address], [place] [address] Apr, [facility] [address] [id number] [address] [place] [address], [place] [address] Mar, [facility] [address] [id number] [address] [place] [address], [place] [address] Mar, [facility] [address] [id number] [address] [place] [address], [place] [address] Mar, [facility] [address] [id number] [address] [place] [address], [place] [address] Mar, [facility] [address] [id number] [address] [place] [address], [place] [address] Mar, [facility] [address] [id number] [address] [place] [address], [place] [address] Mar, [facility] [address] [id number] [address] [place] [address], [place] [address] Jan, [facility] [address] [id number] [address] [place] [address], [place] [address] Jan, [facility] [address] [id number] [facility] [place] [address] Jan, [facility] [address] [id number] [address] [place] [address], [place] [address] Jan, [facility] [address] [id number] [address] [place] [address], [place] [address] Dec, [facility] [address] [id number] [address] [place] [address], [place] [address] Dec, [facility] [address] [id number] [address] [place] [address], [place] [address] Dec, [facility] [address] [id number] [address] [place] [address], [place] [address] Dec, [facility] [address] [id number] [address] [place] [address], [place] [address] Dec, [facility] [address] [id number] [address] [place] [address], [place] [address] Dec, [facility] [address] [id number] [address] [place] [address], [place] [address] Dec, [facility] [address] [id number] [address] [place] [address], [place] [address] Dec, [facility] [address] [id number] [address] [place] [address], [place] [address] Dec, [facility] [address] [id number] [address] [place] [address], [place] [address] Dec, [facility] [address] [id number] [address] [place] [address], [place] [address] Dec, [facility] [address] [id number] [address] [place] [address], [place] [address] Dec, [facility] [address] [id number] [address] [place] [address], [place] [address] October, [facility] [address] [id number] [facility] [address] October, [facility] [address] [id number] [address] [place] [address], [place] [address] October, [facility] [address] [id number] [address] [place] [address], [place] [address] October, [facility] [address] [id number] [address] [place] [address], [place] [address] October, [facility] [address] [id number] [address] [place] [address], [place] [address] October, [facility] [address] [id number] [address] [place] [address], [place] [address] Oct, [facility] [address] [id number] [address] [place] [address], [place] [address] Oct, [facility] [address] [id number] [address] [place] [address], [place] [address] Oct, [facility] [address] [id number] [address] [place] [address], [place] [address] Oct, [facility] [address] [id number] [address] [place] [address], [place] [address] Oct, [facility] [address] [id number] [address] [place] [address], [place] [address] Oct, [facility] [address] [id number] [address] [place] [address], [place] [address] Oct, [facility] [address] [id number] [address] [place] [address], [place] [address] Oct, [facility] [address] [id number] [address] [place] [address], [place] [address] Oct, [facility] [address] [id number] [address] [place] [address], [place] [address] Oct, [facility] [address] [id number] [address] [place] [address], [place] [address] Oct, [facility] [address] [id number] [address] [place] [address], [place] [address] Oct, [facility] [address] [id number] [address] [place] [address], [place] [address] Aug, [facility] [address] [id number] [address] [place] [address], [place] [address] Aug, [facility] [address] [id number] [address] [place] [address], [place] [address] Aug, [facility] [address] [id number] [address] [place] [address], [place] [address] Aug, [facility] [address] [id number] [address] [place] [address], [place] [address] Aug, [facility] [address] [id number] [address] [place] [address], [place] [address] Aug, [facility] [address] [id number] [address] [place] [address], [place] [address] Aug, [facility] [address] [id number] [address] [place] [address], [place] [address] Aug, [facility] [address] [id number] [address] [place] [address], [place] [address] Aug, [facility] [address] [id number] [address] [place] [address], [place] [address] Aug, [facility] [address] [id number] [address] [place] [address], [place] [address] Aug, [facility] [address] [id number] [address] [place] [address], [place] [address] Aug, [facility] [address] [id number] [address] [place] [address], [place] [address] Aug, [facility] [address] [id number] [address] [place] [address], [place] [address] Aug, [facility] [address] [id number] [address] [place] [address], [place] [address] 14 Aug, 2013 [facility] [address] [id number] [address] [place] [address], [place] [address] 14 Aug, 2013 [facility] [address] [id number] [address] [place] [address], [place] [address] 14 Aug, 2013 [facility] [address] [id number] [address] [place] [address], [place] [address] 14 Aug, 2013 [facility] [address] [id number] [address] [place] [address], [place] [address] 07 Aug, 2013 [facility] [address] [id number] [address] [place] [address], [place] [address] 07 Aug, 2013 [facility] [address] [id number] [address] [place] [address], [place] [address] 06 Aug, 2013 [facility] [address] [id number] [address] [place] [address], [place] [address] 06 Aug, 2013 [facility] [address] [id number] [address] [place] [address], [place] [address] 04 Aug, 2013 [facility] [address] [id number] [address] [place] [address], [place] [address] 04 Aug, 2013 [facility] [address] [id number] [address] [place] [address], [place] [address] Aug, [facility] [address] [id number] [address] [place] [address], [place] [address] Jul, [facility] [address] [id number] [address] [place] [address], [place] [address] Jul, [facility] [address] [id number] [address] [place] [address], [place] [address] Jul, [facility] [address] [id number] [address] [place] [address], [place] [address] Jul, [facility] [address] [id number] [address] [place] [address], [place] [address] Jul, [facility] [address] [id number] [address] [place] [address] Jul, [facility] [address] [id number] [address] [place] [address], [place] [address] Jul, [facility] [address] [id number] [address] [place] [address], [place] [address] Jul, [facility] [address] [id number] [address] [place] [address], [place] [address] Jul, [facility] [address] [id number] [address] [place] [address], [place] [address] Jul, [facility] [address] [id number] [address] [place] [address], [place] [address] Jul, [facility] [address] [id number] [address] [place] [address], [place] [address] Jul, [facility] [address] [id number] [address] [place] [address], [place] [address] Jul, [facility] [address] [id number] [address] [place] [address], [place] [address] Jul, [facility] [address] [id number] [address] [place] [address], [place] [address] Jul, [facility] [address] [id number] [address] [place] [address], [place] [address] Jul, [facility] [address] [id number] [address] [place] [address], [place] [address] Jul, [facility] [address] [id number] [address] [place] [address], [place] [address] Jul, [facility] [address] [id number] [address] [place] [address], [place] [address] Jul, [facility] [address] [id number] [address] [place] [address], [place] [address] Jul, [facility] [address] [id number] [address] [place] [address], [place] [address] 31 Jun, 2013 [facility] [address] [id number] [address] [place] [address], [place] [address] 31 Jun, 2013 [facility] [address] [id number] [address] [place] [address], [place] [address] 30 Jun, 2013 [facility] [address] [id number] [address] [place] [address], [place] [address] 30 Jun, 2013 [facility] [address] [id number] [address] [place] [address], [place] [address] Jun, [facility] [address] [id number] [address] [place] [address], [place] [address] Jun, [facility] [address] [id number] [address] [place] [address], [place] [address] Jun, [facility] [address] [id number] [address] [place] [address], [place] [address] Jun, [facility] [address] [id number] [address] [place] [address], [place] [address] 24 Jun, 2013 [facility] [address] [id number] [address] [place] [address], [place] [address] Jun, [facility] [address] [id number] [address] [place] [address], [place] [address] Jun, [facility] [address] [id number] [address] [place] [address], [place] [address] Jun, [facility] [address] [id number] [address] [place] [address], [place] [address] Jun, [facility] [address] [id number] [address] [place] [address], [place] [address] Jun, [facility] [address] [id number] [address] [place] [address], [place] [address] Jun, [facility] [address] [id number] [address] [place] [address], [place] [address] 18 Jun, 2013 [facility] [address] [id number] [address] [place] [address], [place] [address] 18 Jun, 2013 [facility] [address] [id number] [address] [place] [address], [place] [address] Jun, [facility] [address] [id number] [address] [place] [address], [place] [address] Jun, [facility] [address] [id number] [address] [place] [address], [place] [address] Jun, [facility] [address] [id number] [address] [place] [address], [place] [address] Jun, [facility] [address] [id number] [address] [place] [address], [place] [address] Jun, [facility] [address] [id number] [address] [place] [address], [place] [address] Jun, [facility] [address] [id number] [address] [place] [address], [place] [address] Jun, [facility] [address] [id number] [address] [place] [address], [place] [address] Jun, [facility] [address] [id number] [address] [place] [address], [place] [address] Jun, [facility] [address] [id number] [address] [place] [address], [place] [address] Jun, [facility] [address] [id number] [address] [place] [address], [place] [address] May, [facility] [address] [id number] [address] [place] [address], [place] [address] May, [facility] [address] [id number] [address] [place] [address], [place] [address] May, [facility] [address] [id number] [address] [place] [address], [place] [address] May, [facility] [address] [id number] [address] [place] [address], [place] [address] May, [facility] [address] [id number] [address] [place] [address], [place] [address] May, [facility] [address] [id number] [address] [place] [address], [place] [address] Apr, [facility] [address] [id number] [address] [place] [address], [place] [address] Apr, [facility] [address] [id number] [address] [place] [address] Apr, [facility] [address] [id number] [address] [place] [address], [place] [address] Apr, [facility] [address] [id number] [address] [place] [address], [place] [address] Apr, [facility] [address] [id number] [address] [place] [address], [place] [address] Apr, [facility] [address] [id number] [address] [place] [address], [place] [address] 15 Apr, 2013 [facility] [address] [id number] [address] [place] [address], [place] [address] Apr, [facility] [address] [id number] [address] [place] [address], [place] [address] 26 Mar, 2013 [facility] [address] [id number] [address] [place] [address], [place] [address] 24 Sep, 2012 [facility] [address] [id number] [address] [place] [address] 17 Sep, 2012 [facility] [address] [id number] [address] [place] [address], [place] [address] 17 Sep, 2012 [facility] [address] [id number] [address] [place] [address], [place] [address] 11 Sep, 2012 [facility] [address] [id number] [address] [place] [address], [place] [address] 10 Sep, 2012 [facility] [address] [id number] [address] [place] [address], [place] [address] 05 Mar, 2013 [facility] [address] [id number] [address] [place] [address], [place] [address] 04 Mar, 2013 [facility] [address] [id number] [address] [place] [address], [place] [address] Jan, [facility] [address] [id number] [address] [place] [address], [place] [address] Jan, [facility] [address] [id number] [address] [place] [address], [place] [address] Jan, [facility] [address] [id number] [address] [place] [address], [place] [address] Jan, [facility] [address] [id number] [address] [place] [address], [place] [address] Jan, [facility] [address] [id number] [address] [place] [address], [place] [address] Jan, [facility] [address] [id number] [address] [place] [address], [place] [address] Dec, [facility] [address] [id number] [address] [place] [address], [place] [address] Dec, [facility] [address] [id number] [address] [place] [address], [place] [address] Dec, [facility] [address] [id number] [address] [place] [address], [place] [address] Dec, [facility] [address] [id number] [address] [place] [address], [place] [address] Dec, [facility] [address] [id number] [address] [place] [address], [place] [address] 17 Dec, 2012 [facility] [address] [id number] [address] [place] [address], [place] [address] 16 Dec, 2012 [facility] [address] [id number] [address] [place] [address], [place] [address] 16 Dec, 2012 [facility] [address] [id number] [address] [place] [address], [place] [address] 15 Dec, 2012 [facility] [address] [id number] [address] [place] [address], [place] [address] Dec, [facility] [address] [id number] [address] [place] [address], [place] [address] Dec, [facility] [address] [id number] [address] [place] [address], [place] [address] Dec, [facility] [address] [id number] [address] [place] [address], [place] [address] Dec, [facility] [address] [id number] [address] [place] [address], [place] [address] Dec, [facility] [address] [id number] [address] [place] [address], [place] [address] Dec, [facility] [address] [id number] [address] [place] [address], [place] [address] Dec, [facility] [address] [id number] [address] [place] [address], [place] [address] October, [facility] [address] [id number] [address] [place] [address], [place] [address] October, [facility] [address] [id number] [address] [place] [address], [place] [address] October, [facility] [address] [id number] [address] [place] [address], [place] [address] October, [facility] [address] [id number] [address] [place] [address], [place] [address] October, [facility] [address] [id number] [address] [place] [address], [place] [address] October, [facility] [address] [id number] [address] [place] [address], [place] [address] October, [facility] [address] [id number] [address] [place] [address], [place] [address] 29 Oct, 2012 [facility] [address] [id number] [address] [place] [address], [place] [address] 26 Oct, 2012 [facility] [address] [id number] [address] [place] [address], [place] [address] 24 Oct, 2012 [facility] [address] [id number] [address] [place] [address], [place] [address] 23 Oct, 2012 [facility] [address] [id number] [address] [place] [address], [place] [address] Oct, [facility] [address] [id number] [address] [place] [address], [place] [address] 18 Oct, 2012 [facility] [address] [id number] [address] [place] [address], [place] [address] 17 Oct, 2012 [facility] [address] [id number] [address] [place] [address], [place] [address] 15 Oct, 2012 [facility] [address] [id number] [address] [place] [address], [place] [address] Oct, [facility] [address] [id number] [address] [place] [address], [place] [address] Oct, [facility] [address] [id number] [address] [place] [address], [place] [address] Oct, [facility] [address] [id number] [address] [place] [address], [place] [address] Oct, [facility] [address] [id number] [address] [place] [address], [place] [address] Aug, [facility] [address] [id number] [address] [place] [address], [place] [address] Aug, [facility] [address] [id number] [address] [place] [address], [place] [address] Aug, [facility] [address] [id number] [address] [place] [address], [place] [address] 06 Aug, 2012 [facility] [address] [id number] [address] [place] [address], [place] [address] 05 Aug, 2012 [facility] [address] [id number] [address] [place] [address], [place] [address] 05 Aug, 2012 [facility] [address] [id number] [address] [place] [address], [place] [address] 20 Aug, 2012 [facility] [address] [id number] [address] [place] [address], [place] [address] 14 Aug, 2012 [facility] [address] [id number] [address] [place] [address], [place] [address] 12 Aug, 2012 [facility] [address] [id number] [address] [place] [address], [place] [address] 11 Aug, 2012 [facility] [address] [id number] [address] [place] [address], [place] [address] 29 Jul, 2012 [facility] [address] [id number] [address] [place] [address], [place] [address] 15 Jul, 2012 [facility] [address] [id number] [address] [place] [address], [place] [address] 08 Jul, 2012 [facility] [address] [id number] [address] [place] [address], [place] [address] Jun, [facility] [address] [id number] [address] [place] [address], [place] [address] 18 Jun, 2012 [facility] [address] [id number] [address] [place] [address], [place] [address] 18 Jun, 2012 [facility] [address] [id number] [address] [place] [address], [place] [address] 18 Jun, 2012 [facility] [address] [id number] [address] [place] [address], [place] [address] 18 Jun, 2012 [facility] [address] [id number] [address] [place] [address], [place] [address] 14 Jun, 2012 [facility] [address] [id number] [address] [place] [address], [place] [address] 14 Jun, 2012 [facility] [address] [id number] [address] [place] [address], [place] [address] 13 Jun, 2012 [facility] [address] [id number] [address] [place] [address], [place] [address] 13 Jun, 2012 [facility] [address] [id number] [address] [place] [address], [place] [address] 11 Jun, 2012 [facility] [address] [id number] [address] [place] [address], [place] [address] 11 Jun, 2012 [facility] [address] [id number] [address] [place] [address], [place] [address] Jun, [facility] [address] [id number] [address] [place] [address], [place] [address] Jun, [facility] [address] [id number] [address] [place] [address], [place] [address] Jun, [facility] [address] [id number] [address] [place] [address], [place] [address] 07 Jun, 2012 [facility] [address] [id number] [address] [place] [address], [place] [address] 06 Jun, 2012 [facility] [address] [id number] [address] [place] [address], [place] [address] 06 Jun, 2012 [facility] [address] [id number] [address] [place] [address], [place] [address] 06 Jun, 2012 [facility] [address] [id number] [address] [place] [address], [place] [address] Jun, [facility] [address] [id number] [address] [place] [address], [place] [address] 05 Jun, 2012 [facility] [address] [id number] [address] [place] [address], [place] [address] 05 Jun, 2012 [facility] [address] [id number] [address] [place] [address], [place] [address] Jun, [facility] [address] [id number] [address] [place] [address], [place] [address] Jun, [facility] [address] [id number] [address] [place] [address], [place] [address] May, [facility] [address] [id number] [address] [place] [address], [place] [address] May, [facility] [address] [id number] [address] [place] [address], [place] [address] May, [facility] [address] [id number] [address] [place] [address], [place] [address] May, [facility] [address] [id number] [address] [place] [address], [place] [address] May, [facility] [address] [id number] [address] [place] [address], [place] [address] May, [facility] [address] [id number] [address] [place] [address], [place] [address] May, [facility] [address] [id number] [address] [place] [address], [place] [address] May, [facility] [address] [id number] [address] [place] [address], [place] [address] Apr, [facility] [address] [id number] [address] [place] [address], [place] [address] Apr, [facility] [address] [id number] [address] [place] [address], [place] [address] 29 Apr, 2012 [facility] [address] [id number] [address] [place] [address], [place] [address] Apr, [facility] [address] [id number] [address] [place] [address], [place] [address] Apr, [facility] [address] [id number] [address] [place] [address], [place] [address] Apr, [facility] [address] [id number] [address] [place] [address], [place] [address] Apr, [facility] [address] [id number] [address] [place] [address], [place] [address] Apr, [facility] [address] [id number] [address] [place] [address], [place] [address] Apr, [facility] [address] [id number] [address] [place] [address] Apr, [facility] [address] [id number] [address] [place] [address], [place] [address] Apr, [facility] [address] [id number] [address] [place] [address], [place] [address] Apr, [facility] [address] [id number] [address] [place] [address], [place] [address] Mar, [facility] [address] [id number] [address] [place] [address], [place] [address] 18 Mar, 2012 [facility] [address] [id number] [address] [place] [address] Mar, [facility] [address] [id number] [address] [place] [address] Mar, [facility] [address] [id number] [address] [place] [id number] Mar, [facility] [address] [id number] [address] [place] [id number] Mar, [facility] [address] [id number] [address] [place] [id number] Mar, [facility] [address] [id number] [address] [place] [phone] Jan, [facility] [address] [id number] [address] [place] [phone] Jan, [facility] [address] [id number] [address] [place] [id number] Jan, [facility] [address] [id number] [address] [place] [phone] Jan, [facility] [address] [id number] [address] [place] [address], [place] [address] Jan, [facility] [address] [id number] [address] [place] [address], [place] [address] Jan, [facility] [address] [id number] [address] [place] [address], [place] [address] Jan, [facility] [address] [id number] [address] [place] [address], [place] [address] Jan, [facility] [address] [id number] [address] [place] [address], [place] [address] Jan, [facility] [address] [id number] [address] [place] [address], [place] [address] Jan, [facility] [address] [id number] [address] [place] [address], [place] [address] Jan, [facility] [address] [id number] [address] [place] [address], [place] [address] Dec, [facility] [address] [id number] [address] [place] [address], [place] [address] Dec, [facility] [address] [id number] [address] [place] [address], [place] [address] Dec, [facility] [address] [id number] [address] [place] [address], [place] [address] Dec, [facility] [address] [id number] [address] [place] [address], [place] [address] Dec, [facility] [address] [id number] [address] [place] [address], [place] [address] Dec, [facility] [address] [id number] [address] [place] [address], [place] [address] Dec, [facility] [address] [id number] [address] [place] [address], [place] [address] Dec, [facility] [address] [id number] [address] [place] [address], [place] [address] 16 Jan, 2012 [facility] [address] [id number] [address] [place] [address], [place] [address] 13 Jan, 2012 [facility] [address] [id number] [address] [place] [address], [place] [address] 13 Jan, 2012 [facility] [address] [id number] [address] [place] [address], [place] [address] 02 Jan, 2012 [facility] [address] [id number] [address] [place] [address], [place] [address] Dec, [facility] [address] [id number] [address] [place] [address], [place] [address] 27 Dec, 2011 [facility] [address] [id number] [address] [place] [address], [place] [address] Dec, [facility] [address] [id number] [address] [place] [address], [place] [address] Dec, [facility] [address] [id number] [address] [place] [address], [place] [address] 15 Dec, 2011 [facility] [address] [id number] [address] [place] [address], [place] [address] Dec, [facility] [address] [id number] [address] [place] [address], [place] [address] 05 Dec, 2011 [facility] [address] [id number] [address] [place] [address], [place] [address] October, [facility] [address] [id number] [address] [place] [address], [place] [address] October, [facility] [address] [id number] [address] [place] [address], [place] [address] October, [facility] [address] [id number] [address] [place] [address], [place] [address] October, [facility] [address] [id number] [address] [place] [address], [place] [address] October, [facility] [address] [id number] [address] [place] [address], [place] [address] October, [facility] [address] [id number] [address] [place] [address], [place] [address] Oct, [facility] [address] [id number] [address] [place] [address], [place] [address] Oct, [facility] [address] [id number] [address] [place] [address], [place] [address] Oct, [facility] [address] [id number] [address] [place] [address], [place] [address] Oct, [facility] [address] [id number] [address] [place] [address], [place] [address] Oct, [facility] [address] [id number] [address] [place] [address], [place] [address] Oct, [facility] [address] [id number] [address] [place] [address], [place] [address] Oct, [facility] [address] [id number] [address] [place] [address], [place] [address] Aug, [facility] [address] [id number] [address] [place] [address], [place] [address] Aug, [facility] [address] [id number] [address] [place] [address], [place] [address] Aug, [facility] [address] [id number] [address] [place] [address], [place] [address] Aug, [facility] [address] [id number] [address] [place] [address], [place] [address] Aug, [facility] [address] [id number] [address] [place] [address], [place] [id number] Aug, [facility] [address] [id number] [address] [place] [address], [place] [address] Aug, [facility] [address] [id number] [address] [place] [address], [place] [address] Aug, [facility] [address] [id number] [address] [place] [address], [place] [address] Aug, [facility] [address] [id number] [address] [place] [address], [place] [address] Jul, [facility] [address] [id number] [address] [place] [address], [place] [address] Jul, [facility] [address] [id number] [address] [place] [address], [place] [address] Jul, [facility] [address] [id number] [address] [place] [address], [place] [phone] Jul, [facility] [address] [id number] [address] [place] [address], [place] [address] Jun, [facility] [address] [id number] [address] [place] [address], [place] [address] Jun, [facility] [address] [id number] [address] [place] [address], [place] [phone] May, [facility] [address] [id number] [address] [place] [address], [place] [address] May, [facility] [address] [id number] [address] [place] [address], [place] [address] May, [facility] [address] [id number] [address] [place] [address], [place] [address] May, [facility] [address] [id number] [address] [place] [address], [place] [address] May, [facility] [address] [id number] [address] [place] [address], [place] [address] Apr, [facility] [address] [id number] [address] [place] [address], [place] [address] Apr, [facility] [address] [id number] [address] [place] [phone] Apr, [facility] [address] [id number] [address] [place] [phone] Jan, [facility] [address] [id number] [address] [place] [phone] Dec, [facility] [address] [id number] [address] [place] [phone] October, [facility] [address] [id number] [address] [place] [phone] Jun, [facility] [address] [id number] [address] [place] [phone] Apr, [facility] [address] [id number] [address] [place] [phone] Apr, [facility] [address] [id number] [address] [place] [phone] Apr, [facility] [address] [id number] [address] [place] [phone] Jun, IMMUNIZATIONS No Known Immunizations SOCIAL HISTORY Never Assessed REASON FOR VISIT adderall 10/05/2017 PLAN OF CARE VITAL SIGNS MEDICATIONS Medication Instructions Dosage Frequency Start Date End Date Duration S taylor Adderall 10 mg Orally 3 times a day 1 tablet 8h Oct, 28 days Active RESULTS No Results PROCEDURES No Known procedures INSTRUCTIONS MEDICATIONS ADMINISTERED No Known Medications MEDICAL (GENERAL) HISTORY Type Description Date Medical History Psychiatric disorder Medical History Hard of hearing Surgical History Neofibrous tumor Surgical History back injection Hospitalization History Intestinal blockage Hospitalization History past psychiatric hospitalizations x2
--- OUTSIDE RECORDS SUMMARY | 2020-01-25 13:14 | XMS REPORT ---
Author Author Ana ESCAMILLA [facility] Address [address] [place] [address] Care Team Providers Care Split [facility] Drum Room Supervisor Name Role Phone Jackie ESCAMILLAYEN Unavailable PROBLEMS Type Condition ICD9-CM Code [id number] Code Onset Dates Condition S tatus SNOMED Code Problem Attention deficit R41.840 Active 76 760952 Problem Cannabis abuse F12.10 Active 30523 009 Problem Chronic hepatitis C without hepatic coma B18.2 Active 325468465 Problem Attention deficit hyperactivity disorder (ADHD), combi luciano type F90.2 Active 68773254 Problem Bipolar disorder, in partial remission, most rec ent episode hypomanic F31.71 Active 796784974 Problem H/O laminectomy Z98.89 Active 1616 50264 Problem Bipolar 1 disorder F31.9 Active 3 84405925 Problem Anxiety disorder, unspecified type F41.9 Active 899332960 Problem Other chronic pain G89.29 Active 8 [id number] ALLERGIES No Information ENCOUNTERS Encounter Location Date Diagnosis [facility] [address] [facility] [id number] [address] [place] [phone] Dec, [facility] [address] [id number] [address] [place] [phone] October, [facility] [address] [id number] [address] [place] [address] Oct, Bipolar disorder, in partial remission, most recent episode hypomanic F31.71 ; Attention deficit hyperactivity disorder (ADHD), combined type F90.2 ; Anxiety disorder, unspecified type F41.9 and Encounter for drug screening Z02.83 [facility] [address] [facility] [id number] [address] [place] [phone] Oct, Bipolar disorder, in partial remission, most recent episode hypomanic F31.71 [facility] [address] [id number] [address] [place] [id number] Oct, Bipolar disorder, in partial remission, most recent episode hypomanic F31.71 [facility] [address] [facility] [id number] [address] [place] [phone] Aug, Bipolar disorder, in partial remission, most recent episode hypomanic F31.71 [facility] [address] [id number] [address] [place] [phone] Aug, Bipolar disorder, in partial remission, most recent episode hypomanic F31.71 [facility] [address] [id number] [address] [place] [id number] Aug, Bipolar disorder, in partial remission, most recent episode hypomanic F31.71 [facility] [address] [facility] [id number] [address] [place] [phone] Jul, Bipolar disorder, in partial remission, most recent episode hypomanic F31.71 ; Attention deficit hyperactivity disorder (ADHD), combined type F90.2 and Anxiety disorder, unspecified type F41.9 [facility] [address] [facility] [id number] [address] [place] [phone] Jul, Bipolar disorder, in partial remission, most recent episode hypomanic F31.71 [facility] [address] [facility] [id number] [address] [place] [phone] Jun, Bipolar disorder, in partial remission, most recent episode hypomanic F31.71 [facility] [address] [facility] [id number] [address] [place] [id number] May, Bipolar disorder, in partial remission, most recent episode hypomanic F31.71 [facility] [address] [facility] [id number] [address] [place] [id number] May, Bipolar disorder, in partial remission, most recent episode hypomanic F31.71 [facility] [address] [facility] [id number] [address] [place] [phone] Apr, [facility] [address] [facility] [id number] [address] [place] [phone] Apr, Bipolar disorder, in partial remission, most recent episode hypomanic F31.71 ; Attention deficit hyperactivity disorder (ADHD), combined type F90.2 ; Anxiety disorder, unspecified type F41.9 and Cannabis abuse F12.10 [facility] [address] [facility] [id number] [address] [place] [phone] Apr, Attention deficit hyperactiv ity disorder (ADHD), combined type F90.2 [facility] [address] [facility] [id number] [address] [place] [phone] Mar, Attention deficit hyperactiv ity disorder (ADHD), combined type F90.2 [facility] [address] [facility] [id number] [address] [place] [phone] Mar, Anxiety disorder, unspecifie d type F41.9 [facility] [address] [facility] [id number] [address] [place] [phone] Jan, Attention deficit hyperactiv ity disorder (ADHD), combined type F90.2 [facility] [address] [facility] [id number] [address] [place] [phone] Jan, Anxiety disorder, unspecifie d type F41.9 [facility] [address] [facility] [id number] [address] [place] [phone] Jan, Other chronic pain G89.29 ; Chronic hepatitis C without hepatic coma B18.2 and Bipolar 1 disorder F31.9 [facility] [address] [facility] [id number] [address] [place] [id number] Dec, Attention deficit hyperactiv ity disorder (ADHD), combined type F90.2 [facility] [address] [facility] [id number] [address] [place] [id number] Dec, Bipolar disorder, in partial remission, most recent episode hypomanic F31.71 ; Attention deficit hyperactivity disorder (ADHD), combined type F90.2 and Anxiety disorder, unspecified type F41.9 [facility] [address] [facility] [id number] [address] [place] [phone] Dec, Bipolar disorder, in partial remission, most recent episode hypomanic F31.71 ; Attention deficit hyperactivity disorder (ADHD), combined type F90.2 and Anxiety disorder, unspecified type F41.9 [facility] [address] [id number] [address] [place] [id number] Dec, Bipolar 1 disorder F31.9 and Attention deficit R41.840 [facility] [address] [id number] [address] [place] [phone] Oct, Other chronic pain G89.29 ; Alopecia L65.9 and Screening, lipid Z13.220 [facility] [address] [facility] [id number] [address] [place] [phone] Oct, [facility] [address] [facility] [id number] [address] [place] [phone] Aug, [facility] [address] [id number] [address] [place] [phone] Aug, Eustachian tube dysfunction, right H69.81 ; Vertigo R42 and Other chronic pain G89.29 [facility] [address] [facility] [id number] [address] [place] [phone] Aug, [facility] [address] [facility] [id number] [address] [place] [phone] Jun, [facility] [address] [id number] [address] [place] [phone] Jun, Low back pain M54.5 and Othe r chronic pain G89.29 [facility] [address] [id number] [address] [place] [id number] Jun, [facility] [address] [facility] [id number] [address] [place] [phone] May, [facility] [address] [id number] [address] [place] [phone] Jan, [facility] [address] [id number] [address] [place] [phone] Dec, [facility] [address] [facility] [id number] [address] [place] [phone] Dec, [facility] [address] [facility] [id number] [address] [place] [phone] Jun, [facility] [address] [facility] [id number] [address] [place] [phone] Apr, Eustachian tube dysfunction, unspecified laterality H69.80 ; Hot flashes N95.1 and Encounter for immunization Z23 [facility] [address] [id number] [address] [place] [phone] Jan, [facility] [address] [facility] [id number] [address] [place] [phone] Jan, [facility] [address] [facility] [id number] [address] [place] [id number] Jan, [facility] [address] [facility] [id number] [address] [place] [phone] Jan, [facility] [address] [facility] [id number] [address] [place] [phone] Jan, Encounter to establish care V65.8 ; Bipolar 1 disorder 296.7 ; Abdominal pain 789.00 ; Constipation 564.00 ; Hard of hearing 389.9 and Drug abuse 305.90 [facility] [address] [facility] [id number] [address] [place] [phone] Dec, [facility] [address] [id number] [address] [place] [id number] October, [facility] [address] [facility] [id number] [address] [place] [phone] October, [facility] [address] [facility] [id number] [address] [place] [phone] Oct, [facility] [address] [facility] [id number] [address] [place] [phone] Oct, [facility] [address] [id number] [address] [place] [address], [place] [address] Oct, [facility] [address] [id number] [address] [place] [address], [place] [address] Aug, [facility] [address] [id number] [address] [place] [address], [place] [address] Aug, [facility] [address] [id number] [address] [place] [address], [place] [address] Aug, [facility] [address] [id number] [address] [place] [address], [place] [address] Aug, 2014 [facility] [address] [id number] [address] [place] [address], [place] [address] Aug, 2014 [facility] [address] [id number] [address] [place] [address], [place] [address] Aug, 2014 [facility] [address] [id number] [address] [place] [address], [place] [address] Aug, 2014 [facility] [address] [id number] [address] [place] [address], [place] [address] Aug, 2014 [facility] [address] [id number] [address] [place] [address], [place] [address] Aug, 2014 [facility] [address] [id number] [address] [place] [address], [place] [address] Aug, 2014 [facility] [address] [id number] [address] [place] [phone] Aug, 2014 [facility] [address] [id number] [address] [place] [address], [place] [address] Aug, 2014 [facility] [address] [id number] [address] [place] [address], [place] [address] Aug, 2014 [facility] [address] [id number] [address] [place] [address], [place] [address] Aug, 2014 [facility] [address] [id number] [address] [place] [address], [place] [address] Aug, [facility] [address] [id number] [address] [place] [address], [place] [address] Jul, [facility] [address] [id number] [address] [place] [address], [place] [address] Jul, [facility] [address] [id number] [address] [place] [address], [place] [address] Jul, [facility] [address] [id number] [address] [place] [address], [place] [address] Jul, [facility] [address] [id number] [address] [place] [address], [place] [address] Jul, [facility] [address] [id number] [address] [place] [address], [place] [address] Jul, [facility] [address] [id number] [address] [place] [address], [place] [address] Jul, [facility] [address] [id number] [address] [place] [address], [place] [address] Jul, [facility] [address] [id number] [address] [place] [address], [place] [address] Jun, [facility] [address] [id number] [address] [place] [address], [place] [address] Jun, [facility] [address] [id number] [address] [place] [address], [place] [address] Jun, [facility] [address] [id number] [address] [place] [address], [place] [address] 29 Jun, 2014 [facility] [address] [id number] [address] [place] [address], [place] [address] 18 Jun, 2014 [facility] [address] [id number] [address] [place] [address], [place] [address] 15 Jun, 2014 [facility] [address] [id number] [address] [place] [address], [place] [address] 15 Jun, 2014 [facility] [address] [id number] [address] [place] [address], [place] [address] Jun, [facility] [address] [id number] [address] [place] [address], [place] [address] Jun, [facility] [address] [id number] [address] [place] [address], [place] [address] Jun, [facility] [address] [id number] [address] [place] [address], [place] [address] Jun, [facility] [address] [id number] [address] [place] [address], [place] [address] May, [facility] [address] [id number] [address] [place] [address], [place] [address] May, [facility] [address] [id number] [address] [place] [address], [place] [address] May, [facility] [address] [id number] [address] [place] [address], [place] [address] May, [facility] [address] [id number] [address] [place] [address], [place] [address] May, [facility] [address] [id number] [address] [place] [address], [place] [address] May, [facility] [address] [id number] [address] [place] [address], [place] [address] May, [facility] [address] [id number] [address] [place] [address], [place] [address] Apr, [facility] [address] [id number] [address] [place] [address], [place] [address] Apr, [facility] [address] [id number] [address] [place] [address], [place] [address] Apr, [facility] [address] [id number] [address] [place] [address], [place] [address] Apr, [facility] [address] [id number] [address] [place] [address], [place] [address] Apr, [facility] [address] [id number] [address] [place] [address], [place] [address] Apr, [facility] [address] [id number] [address] [place] [address], [place] [address] Mar, [facility] [address] [id number] [address] [place] [address], [place] [address] Mar, [facility] [address] [id number] [address] [place] [address], [place] [address] Mar, [facility] [address] [id number] [address] [place] [address], [place] [address] Mar, [facility] [address] [id number] [address] [place] [address], [place] [address] Mar, [facility] [address] [id number] [address] [place] [address], [place] [address] Mar, [facility] [address] [id number] [address] [place] [address], [place] [address] Jan, [facility] [address] [id number] [address] [place] [address], [place] [address] Jan, [facility] [address] [id number] [address] [place] [address], [place] [address] Jan, [facility] [address] [id number] [address] [place] [address], [place] [address] Jan, [facility] [address] [id number] [address] [place] [address], [place] [address] Dec, [facility] [address] [id number] [address] [place] [address], [place] [address] Dec, [facility] [address] [id number] [address] [place] [address], [place] [address] Dec, [facility] [address] [id number] [address] [place] [address], [place] [address] Dec, [facility] [address] [id number] [facility] [place] [address] Dec, [facility] [address] [id number] [address] [place] [address], [place] [address] Dec, [facility] [address] [id number] [address] [place] [address], [place] [address] Dec, [facility] [address] [id number] [address] [place] [address], [place] [address] Dec, [facility] [address] [id number] [address] [place] [address], [place] [address] Dec, [facility] [address] [id number] [address] [place] [address], [place] [address] Dec, [facility] [address] [id number] [address] [place] [address], [place] [address] Dec, [facility] [address] [id number] [address] [place] [address], [place] [address] Dec, [facility] [address] [id number] [address] [place] [address], [place] [address] October, [facility] [address] [id number] [address] [place] [address], [place] [address] October, [facility] [address] [id number] [address] [place] [address], [place] [address] October, [facility] [address] [id number] [address] [place] [address], [place] [address] October, [facility] [address] [id number] [address] [place] [address], [place] [address] October, [facility] [address] [id number] [address] [place] [address], [place] [address] October, [facility] [address] [id number] [address] [place] [address], [place] [address] Oct, [facility] [address] [id number] [address] [place] [address], [place] [address] Oct, [facility] [address] [id number] [facility] [place] [address] Oct, [facility] [address] [id number] [address] [place] [address], [place] [address] Oct, [facility] [address] [id number] [address] [place] [address], [place] [address] Oct, [facility] [address] [id number] [address] [place] [address], [place] [address] Oct, [facility] [address] [id number] [address] [place] [address], [place] [address] Oct, [facility] [address] [id number] [address] [place] [address], [place] [address] Oct, [facility] [address] [id number] [address] [place] [address], [place] [address] Oct, [facility] [address] [id number] [address] [place] [address], [place] [address] Oct, [facility] [address] [id number] [address] [place] [address], [place] [address] Oct, [facility] [address] [id number] [address] [place] [address], [place] [address] Oct, [facility] [address] [id number] [address] [place] [address], [place] [address] Aug, [facility] [address] [id number] [address] [place] [address], [place] [address] 15 Aug, 2013 [facility] [address] [id number] [address] [place] [address], [place] [address] Aug, [facility] [address] [id number] [address] [place] [address], [place] [address] Aug, [facility] [address] [id number] [address] [place] [address], [place] [address] 05 Aug, 2013 [facility] [address] [id number] [address] [place] [address], [place] [address] 05 Aug, 2013 [facility] [address] [id number] [address] [place] [address], [place] [address] 04 Aug, 2013 [facility] [address] [id number] [address] [place] [address], [place] [address] Aug, [facility] [address] [id number] [address] [place] [address], [place] [address] Aug, [facility] [address] [id number] [address] [place] [address], [place] [address] 24 Aug, 2013 [facility] [address] [id number] [address] [place] [address], [place] [address] 24 Aug, 2013 [facility] [address] [id number] [address] [place] [address], [place] [address] 21 Aug, 2013 [facility] [address] [id number] [address] [place] [address], [place] [address] 21 Aug, 2013 [facility] [address] [id number] [address] [place] [address], [place] [address] 20 Aug, 2013 [facility] [address] [id number] [address] [place] [address], [place] [address] 14 Aug, 2013 [facility] [address] [id number] [address] [place] [address], [place] [address] 14 Aug, 2013 [facility] [address] [id number] [address] [place] [address], [place] [address] 14 Aug, 2013 [facility] [address] [id number] [address] [place] [address], [place] [address] 14 Aug, 2013 [facility] [address] [id number] [address] [place] [address], [place] [address] 07 Aug, 2013 [facility] [address] [id number] [address] [place] [address], [place] [address] 07 Aug, 2013 [facility] [address] [id number] [address] [place] [address], [place] [address] Aug, [facility] [address] [id number] [facility] [place] [address] Aug, [facility] [address] [id number] [address] [place] [address], [place] [address] Aug, [facility] [address] [id number] [address] [place] [address], [place] [address] Aug, [facility] [address] [id number] [address] [place] [address], [place] [address] Aug, [facility] [address] [id number] [address] [place] [address], [place] [address] Jul, [facility] [address] [id number] [address] [place] [address], [place] [address] Jul, [facility] [address] [id number] [address] [place] [address], [place] [address] Jul, [facility] [address] [id number] [address] [place] [address], [place] [address] Jul, [facility] [address] [id number] [address] [place] [address], [place] [address] Jul, [facility] [address] [id number] [address] [place] [address], [place] [address] Jul, [facility] [address] [id number] [address] [place] [address], [place] [address] Jul, [facility] [address] [id number] [address] [place] [address], [place] [address] Jul, [facility] [address] [id number] [address] [place] [address], [place] [address] Jul, [facility] [address] [id number] [address] [place] [address], [place] [address] Jul, [facility] [address] [id number] [address] [place] [address], [place] [address] Jul, [facility] [address] [id number] [address] [place] [address], [place] [address] 15 Jul, 2013 [facility] [address] [id number] [address] [place] [address], [place] [address] Jul, [facility] [address] [id number] [address] [place] [address], [place] [address] 10 Jul, 2013 [facility] [address] [id number] [address] [place] [address], [place] [address] Jul, [facility] [address] [id number] [address] [place] [address], [place] [address] Jul, [facility] [address] [id number] [address] [place] [address], [place] [address] Jul, [facility] [address] [id number] [address] [place] [address], [place] [address] Jul, [facility] [address] [id number] [address] [place] [address], [place] [address] Jul, [facility] [address] [id number] [address] [place] [address], [place] [address] Jul, [facility] [address] [id number] [address] [place] [address], [place] [address] Jun, [facility] [address] [id number] [address] [place] [address], [place] [address] 31 Jun, 2013 [facility] [address] [id number] [address] [place] [address], [place] [address] 30 Jun, 2013 [facility] [address] [id number] [address] [place] [address], [place] [address] Jun, [facility] [address] [id number] [address] [place] [address], [place] [address] Jun, [facility] [address] [id number] [address] [place] [address], [place] [address] Jun, [facility] [address] [id number] [address] [place] [address], [place] [address] Jun, [facility] [address] [id number] [address] [place] [address], [place] [address] Jun, [facility] [address] [id number] [address] [place] [address], [place] [address] Jun, [facility] [address] [id number] [address] [place] [address], [place] [address] Jun, [facility] [address] [id number] [address] [place] [address], [place] [address] Jun, [facility] [address] [id number] [address] [place] [address], [place] [address] Jun, [facility] [address] [id number] [address] [place] [address], [place] [address] Jun, [facility] [address] [id number] [address] [place] [address], [place] [address] Jun, [facility] [address] [id number] [address] [place] [address], [place] [address] Jun, [facility] [address] [id number] [address] [place] [address], [place] [address] Jun, [facility] [address] [id number] [address] [place] [address], [place] [address] Jun, [facility] [address] [id number] [address] [place] [address], [place] [address] 17 Jun, 2013 [facility] [address] [id number] [address] [place] [address], [place] [address] 17 Jun, 2013 [facility] [address] [id number] [address] [place] [address], [place] [address] 13 Jun, 2013 [facility] [address] [id number] [address] [place] [address], [place] [address] 12 Jun, 2013 [facility] [address] [id number] [address] [place] [address], [place] [address] Jun, [facility] [address] [id number] [address] [place] [phone] Jun, [facility] [address] [id number] [address] [place] [address], [place] [address] Jun, [facility] [address] [id number] [address] [place] [id number] Jun, [facility] [address] [id number] [address] [place] [address] Jun, [facility] [address] [id number] [address] [place] [phone] Jun, [facility] [address] [id number] [address] [place] [address], [place] [address] May, [facility] [address] [id number] [address] [place] [address] May, [facility] [address] [id number] [address] [place] [address] May, [facility] [address] [id number] [address] [place] [address] May, [facility] [address] [id number] [address] [place] [address] May, [facility] [address] [id number] [address] [place] [phone] May, [facility] [address] [id number] [address] [place] [phone] Apr, [facility] [address] [id number] [address] [place] [address] Apr, [facility] [address] [id number] [address] [place] [phone] Apr, [facility] [address] [id number] [address] [place] [phone] Apr, [facility] [address] [id number] [address] [place] [address] Apr, [facility] [address] [id number] [facility] [place] [address] 15 Apr, 2013 [facility] [address] [id number] [address] [place] [address], [place] [address] 15 Apr, 2013 [facility] [address] [id number] [address] [place] [address], [place] [address] Apr, [facility] [address] [id number] [address] [place] [address], [place] [address] 26 Mar, 2012 [facility] [address] [id number] [address] [place] [address], [place] [address] 24 Mar, 2012 [facility] [address] [id number] [address] [place] [address], [place] [address] 17 Mar, 2012 [facility] [address] [id number] [address] [place] [address], [place] [address] 17 Mar, 2012 [facility] [address] [id number] [address] [place] [address], [place] [address] 11 Mar, 2012 [facility] [address] [id number] [address] [place] [address], [place] [address] 10 Mar, 2013 [facility] [address] [id number] [address] [place] [address], [place] [address] 05 Mar, 2013 [facility] [address] [id number] [address] [place] [address], [place] [address] 04 Mar, 2013 [facility] [address] [id number] [address] [place] [address], [place] [address] 20 Jan, 2013 [facility] [address] [id number] [address] [place] [address], [place] [address] 19 Jan, 2013 [facility] [address] [id number] [address] [place] [address], [place] [address] 14 Jan, 2013 [facility] [address] [id number] [address] [place] [address], [place] [address] 12 Jan, 2013 [facility] [address] [id number] [address] [place] [address], [place] [address] Jan, [facility] [address] [id number] [address] [place] [address], [place] [address] Jan, [facility] [address] [id number] [address] [place] [address], [place] [address] 31 Dec, 2012 [facility] [address] [id number] [address] [place] [address], [place] [address] Dec, [facility] [address] [id number] [address] [place] [address], [place] [address] Dec, [facility] [address] [id number] [address] [place] [address], [place] [address] Dec, [facility] [address] [id number] [address] [place] [address], [place] [address] Dec, [facility] [address] [id number] [address] [place] [address], [place] [address] Dec, [facility] [address] [id number] [address] [place] [address], [place] [address] Dec, [facility] [address] [id number] [address] [place] [address], [place] [address] Dec, [facility] [address] [id number] [address] [place] [address], [place] [address] 15 Dec, 2012 [facility] [address] [id number] [address] [place] [address], [place] [address] Dec, [facility] [address] [id number] [address] [place] [address], [place] [address] Dec, [facility] [address] [id number] [address] [place] [address], [place] [address] Dec, [facility] [address] [id number] [address] [place] [address], [place] [address] Dec, [facility] [address] [id number] [address] [place] [address], [place] [address] Dec, [facility] [address] [id number] [address] [place] [address], [place] [address] 13 Dec, 2012 [facility] [address] [id number] [address] [place] [address], [place] [address] Dec, [facility] [address] [id number] [address] [place] [address], [place] [address] October, [facility] [address] [id number] [address] [place] [address], [place] [address] October, [facility] [address] [id number] [address] [place] [address], [place] [address] October, [facility] [address] [id number] [address] [place] [address], [place] [address] October, [facility] [address] [id number] [address] [place] [address], [place] [address] October, [facility] [address] [id number] [address] [place] [address], [place] [address] October, [facility] [address] [id number] [address] [place] [address], [place] [address] October, [facility] [address] [id number] [address] [place] [address], [place] [address] Oct, [facility] [address] [id number] [address] [place] [address], [place] [address] Oct, [facility] [address] [id number] [address] [place] [address], [place] [address] 24 Oct, 2012 [facility] [address] [id number] [address] [place] [address], [place] [address] Oct, [facility] [address] [id number] [address] [place] [address], [place] [address] Oct, [facility] [address] [id number] [address] [place] [address], [place] [address] Oct, [facility] [address] [id number] [address] [place] [address], [place] [address] Oct, [facility] [address] [id number] [address] [place] [address], [place] [address] 15 Oct, 2012 [facility] [address] [id number] [address] [place] [address], [place] [address] Oct, [facility] [address] [id number] [address] [place] [address], [place] [address] Oct, [facility] [address] [id number] [address] [place] [address], [place] [address] Oct, [facility] [address] [id number] [address] [place] [address], [place] [address] Oct, [facility] [address] [id number] [address] [place] [address], [place] [address] Aug, [facility] [address] [id number] [address] [place] [address], [place] [address] Aug, [facility] [address] [id number] [address] [place] [address], [place] [address] Aug, [facility] [address] [id number] [address] [place] [address], [place] [address] Aug, [facility] [address] [id number] [address] [place] [address], [place] [address] Aug, [facility] [address] [id number] [address] [place] [address], [place] [address] Aug, [facility] [address] [id number] [address] [place] [address], [place] [address] Aug, [facility] [address] [id number] [address] [place] [address], [place] [address] 14 Aug, 2012 [facility] [address] [id number] [address] [place] [address], [place] [address] 12 Aug, 2012 [facility] [address] [id number] [address] [place] [address], [place] [address] Aug, [facility] [address] [id number] [address] [place] [address] 29 Jul, 2012 [facility] [address] [id number] [address] [place] [address], [place] [address] 15 Jul, 2012 [facility] [address] [id number] [address] [place] [address], [place] [address] 08 Jul, 2012 [facility] [address] [id number] [address] [place] [address], [place] [address] 20 Jun, 2012 [facility] [address] [id number] [address] [place] [address], [place] [address] 18 Jun, 2012 [facility] [address] [id number] [address] [place] [address], [place] [address] 18 Jun, 2012 [facility] [address] [id number] [address] [place] [address], [place] [address] 18 Jun, 2012 [facility] [address] [id number] [address] [place] [address], [place] [address] 18 Jun, 2012 [facility] [address] [id number] [address] [place] [address], [place] [address] 14 Jun, 2012 [facility] [address] [id number] [address] [place] [address], [place] [address] 14 Jun, 2012 [facility] [address] [id number] [address] [place] [address], [place] [address] 13 Jun, 2012 [facility] [address] [id number] [address] [place] [address], [place] [address] 13 Jun, 2012 [facility] [address] [id number] [address] [place] [address], [place] [address] 11 Jun, 2012 [facility] [address] [id number] [address] [place] [address], [place] [address] 11 Jun, 2012 [facility] [address] [id number] [address] [place] [address], [place] [address] 11 Jun, 2012 [facility] [address] [id number] [address] [place] [address], [place] [address] 11 Jun, 2012 [facility] [address] [id number] [address] [place] [address], [place] [address] 07 Jun, 2012 [facility] [address] [id number] [address] [place] [address], [place] [address] Jun, [facility] [address] [id number] [address] [place] [address], [place] [address] Jun, [facility] [address] [id number] [address] [place] [address], [place] [address] Jun, [facility] [address] [id number] [address] [place] [address], [place] [address] Jun, [facility] [address] [id number] [address] [place] [address], [place] [address] Jun, [facility] [address] [id number] [address] [place] [address], [place] [address] Jun, [facility] [address] [id number] [address] [place] [address], [place] [address] Jun, [facility] [address] [id number] [address] [place] [address], [place] [address] Jun, [facility] [address] [id number] [address] [place] [address], [place] [address] Jun, [facility] [address] [id number] [address] [place] [address], [place] [address] May, [facility] [address] [id number] [address] [place] [address], [place] [address] May, [facility] [address] [id number] [address] [place] [address], [place] [address] May, [facility] [address] [id number] [address] [place] [address], [place] [address] May, [facility] [address] [id number] [address] [place] [address], [place] [address] May, [facility] [address] [id number] [address] [place] [address] [address] May, [facility] [address] [id number] [address] [place] [address], [place] [address] May, [facility] [address] [id number] [address] [place] [address], [place] [address] May, [facility] [address] [id number] [address] [place] [address], [place] [address] Apr, [facility] [address] [id number] [address] [place] [address], [place] [address] Apr, [facility] [address] [id number] [address] [place] [address], [place] [address] Apr, [facility] [address] [id number] [address] [place] [address], [place] [address] Apr, [facility] [address] [id number] [address] [place] [address], [place] [address] Apr, [facility] [address] [id number] [address] [place] [address] Apr, [facility] [address] [id number] [address] [place] [address] Apr, [facility] [address] [id number] [address] [place] [id number] Apr, [facility] [address] [id number] [address] [place] [id number] Apr, [facility] [address] [id number] [address] [place] [phone] Apr, [facility] [address] [id number] [address] [place] [phone] Apr, [facility] [address] [id number] [address] [place] [id number] Apr, [facility] [address] [id number] [address] [place] [phone] Mar, [facility] [address] [id number] [address] [place] [address], [place] [address] 18 Mar, 2012 [facility] [address] [id number] [address] [place] [address], [place] [id number] 12 Mar, 2012 [facility] [address] [id number] [address] [place] [address], [place] [address] 12 Mar, 2012 [facility] [address] [id number] [address] [place] [id number] Mar, [facility] [address] [id number] [address] [place] [id number] Mar, [facility] [address] [id number] [address] [place] [address], [place] [address] 04 Mar, 2012 [facility] [address] [id number] [address] [place] [address], [place] [id number] 29 Feb, 2012 [facility] [address] [id number] [address] [place] [id number] Jan, [facility] [address] [id number] [address] [place] [id number] Jan, [facility] [address] [id number] [address] [place] [id number] Jan, [facility] [address] [id number] [address] [place] [address], [place] [address] Jan, [facility] [address] [id number] [address] [place] [address], [place] [address] 16 Feb, 2012 [facility] [address] [id number] [address] [place] [id number] 16 Feb, 2012 [facility] [address] [id number] [address] [place] [address], [place] [id number] 14 Feb, 2012 [facility] [address] [id number] [address] [place] [address], [place] [address] Jan, [facility] [address] [id number] [address] [place] [address], [place] [id number] 04 Feb, 2012 [facility] [address] [id number] [facility] [place] [address] Jan, [facility] [address] [id number] [address] [place] [address], [place] [address] Dec, [facility] [address] [id number] [facility] [place] [address] Dec, [facility] [address] [id number] [address] [place] [address], [place] [address] Dec, [facility] [address] [id number] [address] [place] [address], [place] [address] Dec, [facility] [address] [id number] [address] [place] [address], [place] [address] Dec, [facility] [address] [id number] [address] [place] [address], [place] [address] Dec, [facility] [address] [id number] [address] [place] [address], [place] [address] Dec, [facility] [address] [id number] [address] [place] [address], [place] [address] 17 Jan, 2012 [facility] [address] [id number] [address] [place] [address], [place] [id number] 16 Jan, 2012 [facility] [address] [id number] [address] [place] [address], [place] [address] Dec, [facility] [address] [id number] [address] [place] [address], [place] [address] Dec, [facility] [address] [id number] [address] [place] [address], [place] [address] Dec, [facility] [address] [id number] [address] [place] [address], [place] [address] Dec, [facility] [address] [id number] [address] [place] [address], [place] [address] Dec, [facility] [address] [id number] [address] [place] [address], [place] [address] Dec, [facility] [address] [id number] [address] [place] [address], [place] [address] Dec, [facility] [address] [id number] [address] [place] [address], [place] [address] 15 Dec, 2011 [facility] [address] [id number] [address] [place] [address], [place] [address] Dec, [facility] [address] [id number] [address] [place] [address], [place] [address] Dec, [facility] [address] [id number] [address] [place] [address], [place] [address] October, [facility] [address] [id number] [address] [place] [address], [place] [address] October, [facility] [address] [id number] [address] [place] [address], [place] [address] October, [facility] [address] [id number] [address] [place] [address], [place] [address] October, [facility] [address] [id number] [address] [place] [address], [place] [address] October, [facility] [address] [id number] [address] [place] [address], [place] [address] October, [facility] [address] [id number] [address] [place] [address], [place] [address] Oct, [facility] [address] [id number] [address] [place] [address], [place] [address] Oct, [facility] [address] [id number] [address] [place] [address], [place] [address] Oct, [facility] [address] [id number] [address] [place] [address], [place] [address] Oct, [facility] [address] [id number] [address] [place] [address], [place] [address] Oct, [facility] [address] [id number] [address] [place] [address], [place] [address] 03 Oct, 2011 [facility] [address] [id number] [address] [place] [address], [place] [address] Oct, [facility] [address] [id number] [address] [place] [address], [place] [id number] 29 Sep, 2011 [facility] [address] [id number] [address] [place] [address], [place] [address] 29 Sep, 2011 [facility] [address] [id number] [address] [place] [address], [place] [address] Aug, [facility] [address] [id number] [address] [place] [address], [place] [address] Aug, [facility] [address] [id number] [address] [place] [address], [place] [address] Aug, [facility] [address] [id number] [address] [place] [address], [place] [address] Aug, [facility] [address] [id number] [address] [place] [address], [place] [address] 27 Aug, 2011 [facility] [address] [id number] [address] [place] [address], [place] [address] Aug, [facility] [address] [id number] [address] [place] [address], [place] [address] Aug, [facility] [address] [id number] [address] [place] [address], [place] [address] Jul, [facility] [address] [id number] [address] [place] [address], [place] [address] Jul, [facility] [address] [id number] [address] [place] [address], [place] [address] Jul, [facility] [address] [id number] [address] [place] [address], [place] [address] Jul, [facility] [address] [id number] [address] [place] [address], [place] [address] Jun, [facility] [address] [id number] [address] [place] [address], [place] [address] Jun, [facility] [address] [id number] [address] [place] [address], [place] [address] May, [facility] [address] [id number] [address] [place] [address], [place] [address] May, [facility] [address] [id number] [address] [place] [address], [place] [address] May, [facility] [address] [id number] [address] [place] [address], [place] [address] May, [facility] [address] [id number] [address] [place] [address], [place] [address] May, [facility] [address] [id number] [address] [place] [address], [place] [address] Apr, [facility] [address] [id number] [address] [place] [phone] Apr, [facility] [address] [id number] [address] [place] [address], [place] [address] Apr, [facility] [address] [id number] [address] [place] [phone] Jan, [facility] [address] [id number] [address] [place] [phone] Dec, [facility] [address] [id number] [address] [place] [phone] October, [facility] [address] [id number] [address] [place] [address], [place] [address] Jun, [facility] [address] [id number] [address] [place] [id number] 23 Apr, 2009 [facility] [address] [id number] [address] [place] [phone] 13 Apr, 2009 [facility] [address] [id number] [address] [place] [phone] Apr, [facility] [address] [facility] [id number] [address] [place] [phone] Jun, IMMUNIZATIONS No Known Immunizations SOCIAL HISTORY Never Assessed REASON FOR VISIT adderall 04/20/2017 PLAN OF CARE VITAL SIGNS MEDICATIONS Medication Instructions Dosage Frequency Start Date End Date Duration S tatus Adderall 10 mg Orally 3 times a day 1 tablet 8h Apr, 28 days Active RESULTS No Results PROCEDURES No Known procedures INSTRUCTIONS MEDICATIONS ADMINISTERED No Known Medications MEDICAL (GENERAL) HISTORY Type Description Date Medical History Psychiatric disorder Medical History Hard of hearing Surgical History Neofibrous tumor Surgical History back injection Hospitalization History Intestinal blockage Hospitalization History past psychiatric hospitalizations x2
--- OUTSIDE RECORDS SUMMARY | 2020-01-25 13:14 | XMS REPORT ---
Author Author Ana ESCAMILLA KWAME [facility] Address [address] [place] [address] Care Team Providers Care Pharmacy Ancillary Name Role Phone FRANCINE, KWAME Unavailable PROBLEMS Type Condition ICD9-CM Code [id number] Code Onset Dates Condition S tatus SNOMED Code Problem Attention deficit R41.840 Active 76 810466 Problem Cannabis abuse F12.10 Active 61684 009 Problem Chronic hepatitis C without hepatic coma B18.2 Active 867328449 Problem Attention deficit hyperactivity disorder (ADHD), combi luciano type F90.2 Active 29298267 Problem Bipolar disorder, in partial remission, most rec ent episode hypomanic F31.71 Active 852717225 Problem H/O laminectomy Z98.89 Active 1616 51397 Problem Bipolar 1 disorder F31.9 Active 3 25991745 Problem Anxiety disorder, unspecified type F41.9 Active 124799069 Problem Other chronic pain G89.29 Active 8 2054028 ALLERGIES No Information ENCOUNTERS Encounter Location Date Diagnosis [facility] [address] [facility] [id number] [address] [place] [address] Jan, [facility] [address] [facility] [id number] [address] [place] [address] Dec, [facility] [address] [facility] [id number] [address] [place] [address] Dec, Bipolar disorder, in partial remission, most recent episode hypomanic F31.71 [facility] [address] [facility] [id number] [address] [place] [address] October, Bipolar disorder, in partial remission, most recent episode hypomanic F31.71 [facility] [address] [facility] [id number] [address] [place] [address] October, [facility] [address] [facility] [id number] [address] [place] [address] October, [facility] [address] [facility] [id number] [address] [place] [address] Oct, Bipolar disorder, in partial remission, most recent episode hypomanic F31.71 ; Attention deficit hyperactivity disorder (ADHD), combined type F90.2 ; Anxiety disorder, unspecified type F41.9 and Encounter for drug screening Z02.83 [facility] [address] [facility] [id number] [address] [place] [address] Oct, Bipolar disorder, in partial remission, most recent episode hypomanic F31.71 [facility] [address] [facility] [id number] [address] [place] [address] Oct, Bipolar disorder, in partial remission, most recent episode hypomanic F31.71 [facility] [address] [facility] [id number] [address] [place] [address] Aug, Bipolar disorder, in partial remission, most recent episode hypomanic F31.71 [facility] [address] [facility] [id number] [address] [place] [address] Aug, Bipolar disorder, in partial remission, most recent episode hypomanic F31.71 [facility] [address] [facility] [id number] [address] [place] [address] Aug, Bipolar disorder, in partial remission, most recent episode hypomanic F31.71 [facility] [address] [facility] [id number] [address] [place] [address] Jul, Bipolar disorder, in partial remission, most recent episode hypomanic F31.71 ; Attention deficit hyperactivity disorder (ADHD), combined type F90.2 and Anxiety disorder, unspecified type F41.9 [facility] [address] [facility] [id number] [address] [place] [address] Jul, Bipolar disorder, in partial remission, most recent episode hypomanic F31.71 [facility] [address] [facility] [id number] [address] [place] [address] Jun, Bipolar disorder, in partial remission, most recent episode hypomanic F31.71 [facility] [address] [facility] [id number] [address] [place] [address] 17 May, 2017 Bipolar disorder, in partial remission, most recent episode hypomanic F31.71 [facility] [address] [id number] [address] [place] [address] May, Bipolar disorder, in partial remission, most recent episode hypomanic F31.71 [facility] [address] [facility] [id number] [address] [place] [address] Apr, [facility] [address] [facility] [id number] [address] [place] [address] Apr, Bipolar disorder, in partial remission, most recent episode hypomanic F31.71 ; Attention deficit hyperactivity disorder (ADHD), combined type F90.2 ; Anxiety disorder, unspecified type F41.9 and Cannabis abuse F12.10 [facility] [address] [facility] [id number] [address] [place] [address] Apr, Attention deficit hyperactiv ity disorder (ADHD), combined type F90.2 [facility] [address] [facility] [id number] [address] [place] [address] Mar, Attention deficit hyperactiv ity disorder (ADHD), combined type F90.2 [facility] [address] [facility] [id number] [address] [place] [address] 14 Mar, 2017 Anxiety disorder, unspecifie d type F41.9 [facility] [address] [facility] [id number] [address] [place] [address] Jan, Attention deficit hyperactiv ity disorder (ADHD), combined type F90.2 [facility] [address] [facility] [id number] [address] [place] [address] Jan, Anxiety disorder, unspecifie d type F41.9 [facility] [address] [facility] [id number] [address] [place] [address] Jan, Other chronic pain G89.29 ; Chronic hepatitis C without hepatic coma B18.2 and Bipolar 1 disorder F31.9 [facility] [address] [id number] [address] [place] [address] Dec, Attention deficit hyperactiv ity disorder (ADHD), combined type F90.2 [facility] [address] [id number] [address] [place] [address] Dec, Bipolar disorder, in partial remission, most recent episode hypomanic F31.71 ; Attention deficit hyperactivity disorder (ADHD), combined type F90.2 and Anxiety disorder, unspecified type F41.9 [facility] [address] [id number] [address] [place] [address] Dec, Bipolar disorder, in partial remission, most recent episode hypomanic F31.71 ; Attention deficit hyperactivity disorder (ADHD), combined type F90.2 and Anxiety disorder, unspecified type F41.9 [facility] [address] [facility] [id number] [address] [place] [address] Dec, Bipolar 1 disorder F31.9 and Attention deficit R41.840 [facility] [address] [facility] [id number] [address] [place] [address] Oct, Other chronic pain G89.29 ; Alopecia L65.9 and Screening, lipid Z13.220 [facility] [address] [facility] [id number] [address] [place] [address] Oct, [facility] [address] [facility] [id number] [address] [place] [address] Aug, [facility] [address] [facility] [id number] [address] [place] [address] Aug, Eustachian tube dysfunction, right H69.81 ; Vertigo R42 and Other chronic pain G89.29 [facility] [address] [facility] [id number] [address] [place] [address] Aug, [facility] [address] [facility] [id number] [address] [place] [address] Jun, [facility] [address] [facility] [id number] [address] [place] [address] 14 Jun, 2016 Low back pain M54.5 and Othe r chronic pain G89.29 [facility] [address] [facility] [id number] [address] [place] [address] Jun, [facility] [address] [place] [id number] [address] [place] [address] May, [facility] [address] [facility] [id number] [address] [place] [address] Jan, [facility] [address] [facility] [id number] [address] [place] [address] Dec, [facility] [address] [place] [id number] [place] [address] Dec, [facility] [address] [place] [id number] [place] [address] Jun, [facility] [address] [place] [id number] [place] [address] Apr, Eustachian tube dysfunction, unspecified laterality H69.80 ; Hot flashes N95.1 and Encounter for immunization Z23 [facility] [address] [place] [id number] [address] [place] [address] Jan, [facility] [address] [place] [id number] [address] [place] [address] Jan, [facility] [address] [place] [id number] [address] [place] [address] Jan, [facility] [address] [place] [id number] [address] [place] [address] Jan, [facility] [address] [address] Jan, Encounter to establish care V65.8 ; Bipolar 1 disorder 296.7 ; Abdominal pain 789.00 ; Constipation 564.00 ; Hard of hearing 389.9 and Drug abuse 305.90 [facility] [address] [id number] [address] [place] [address], [place] [address] Dec, [facility] [address] [id number] [address] [place] [address], [place] [address] October, [facility] [address] [id number] [address] [place] [address], [place] [address] October, [facility] [address] [id number] [address] [place] [address], [place] [address] Oct, [facility] [address] [id number] [address] [place] [address], [place] [address] Oct, [facility] [address] [id number] [address] [place] [address], [place] [address] Oct, [facility] [address] [id number] [address] [place] [address], [place] [address] Aug, [facility] [address] [id number] [address] [place] [address], [place] [address] Aug, [facility] [address] [id number] [address] [place] [address], [place] [address] Aug, [facility] [address] [id number] [address] [place] [address], [place] [address] Aug, [facility] [address] [id number] [address] [place] [address], [place] [address] Aug, [facility] [address] [id number] [address] [place] [address], [place] [address] Aug, [facility] [address] [id number] [address] [place] [address], [place] [address] Aug, [facility] [address] [id number] [address] [place] [address], [place] [address] Aug, [facility] [address] [id number] [address] [place] [address], [place] [address] Aug, [facility] [address] [id number] [address] [place] [address], [place] [address] Aug, 2014 [facility] [address] [id number] [address] [place] [address], [place] [address] Aug, [facility] [address] [id number] [address] [place] [address], [place] [address] Aug, 2014 [facility] [address] [id number] [address] [place] [address], [place] [address] Aug, [facility] [address] [id number] [address] [place] [address], [place] [address] Aug, [facility] [address] [id number] [address] [place] [address], [place] [address] Aug, [facility] [address] [id number] [address] [place] [address], [place] [address] Jul, [facility] [address] [id number] [address] [place] [address], [place] [address] Jul, [facility] [address] [id number] [address] [place] [address], [place] [address] Jul, [facility] [address] [id number] [address] [place] [address], [place] [address] Jul, [facility] [address] [id number] [address] [place] [address], [place] [address] Jul, [facility] [address] [id number] [address] [place] [address], [place] [address] Jul, [facility] [address] [id number] [address] [place] [address], [place] [address] Jul, [facility] [address] [id number] [address] [place] [address], [place] [address] Jul, [facility] [address] [id number] [address] [place] [address], [place] [address] Jun, [facility] [address] [id number] [address] [place] [address], [place] [address] Jun, [facility] [address] [id number] [address] [place] [address], [place] [address] Jun, [facility] [address] [id number] [address] [place] [address], [place] [address] Jun, [facility] [address] [id number] [address] [place] [address], [place] [address] Jun, [facility] [address] [id number] [address] [place] [address], [place] [address] Jun, [facility] [address] [id number] [address] [place] [address], [place] [address] Jun, [facility] [address] [id number] [address] [place] [address], [place] [address] Jun, [facility] [address] [id number] [address] [place] [address], [place] [address] Jun, [facility] [address] [id number] [address] [place] [address], [place] [address] Jun, [facility] [address] [id number] [address] [place] [address], [place] [address] Jun, [facility] [address] [id number] [address] [place] [address], [place] [address] May, [facility] [address] [id number] [address] [place] [address], [place] [address] May, [facility] [address] [id number] [address] [place] [address], [place] [address] May, [facility] [address] [id number] [address] [place] [address], [place] [address] May, [facility] [address] [id number] [address] [place] [address], [place] [address] May, [facility] [address] [id number] [address] [place] [address], [place] [address] May, [facility] [address] [id number] [address] [place] [address], [place] [address] May, [facility] [address] [id number] [address] [place] [address], [place] [address] Apr, [facility] [address] [id number] [address] [place] [address], [place] [address] Apr, [facility] [address] [id number] [address] [place] [address], [place] [address] Apr, [facility] [address] [id number] [address] [place] [address], [place] [address] Apr, [facility] [address] [id number] [address] [place] [address], [place] [address] Apr, [facility] [address] [id number] [address] [place] [address], [place] [address] Apr, [facility] [address] [id number] [address] [place] [address], [place] [address] Mar, [facility] [address] [id number] [address] [place] [address], [place] [address] Mar, [facility] [address] [id number] [address] [place] [address], [place] [address] Mar, [facility] [address] [id number] [address] [place] [address], [place] [address] Mar, [facility] [address] [id number] [address] [place] [address], [place] [address] Mar, [facility] [address] [id number] [address] [place] [address], [place] [address] Mar, [facility] [address] [id number] [address] [place] [address], [place] [address] Jan, [facility] [address] [id number] [address] [place] [address], [place] [address] Jan, [facility] [address] [id number] [address] [place] [address], [place] [address] Jan, [facility] [address] [id number] [address] [place] [address], [place] [address] Jan, [facility] [address] [id number] [address] [place] [address], [place] [address] Dec, [facility] [address] [id number] [address] [place] [address], [place] [address] Dec, [facility] [address] [id number] [address] [place] [address], [place] [address] Dec, [facility] [address] [id number] [address] [place] [address], [place] [address] Dec, [facility] [address] [id number] [address] [place] [address], [place] [address] Dec, [facility] [address] [id number] [address] [place] [address], [place] [address] Dec, [facility] [address] [id number] [address] [place] [address], [place] [address] Dec, [facility] [address] [id number] [address] [place] [address], [place] [address] Dec, [facility] [address] [id number] [address] [place] [address], [place] [address] Dec, [facility] [address] [id number] [address] [place] [address], [place] [address] Dec, [facility] [address] [id number] [address] [place] [address], [place] [address] Dec, [facility] [address] [id number] [address] [place] [address], [place] [address] Dec, [facility] [address] [id number] [address] [place] [address], [place] [address] October, [facility] [address] [id number] [address] [place] [address], [place] [address] October, [facility] [address] [id number] [address] [place] [address], [place] [address] October, [facility] [address] [id number] [address] [place] [address], [place] [address] October, [facility] [address] [id number] [address] [place] [address], [place] [address] October, [facility] [address] [id number] [address] [place] [address], [place] [address] October, [facility] [address] [id number] [address] [place] [address], [place] [address] Oct, [facility] [address] [id number] [address] [place] [address], [place] [address] Oct, [facility] [address] [id number] [address] [place] [address], [place] [address] Oct, [facility] [address] [id number] [address] [place] [address], [place] [address] Oct, [facility] [address] [id number] [address] [place] [address], [place] [address] Oct, [facility] [address] [id number] [address] [place] [address], [place] [address] Oct, [facility] [address] [id number] [address] [place] [address], [place] [address] Oct, [facility] [address] [id number] [address] [place] [address], [place] [address] Oct, [facility] [address] [id number] [address] [place] [address], [place] [address] Oct, [facility] [address] [id number] [address] [place] [address], [place] [address] Oct, [facility] [address] [id number] [address] [place] [address], [place] [address] Oct, [facility] [address] [id number] [address] [place] [address], [place] [address] Oct, [facility] [address] [id number] [address] [place] [address], [place] [address] 15 Aug, 2013 [facility] [address] [id number] [address] [place] [address], [place] [address] 15 Aug, 2013 [facility] [address] [id number] [address] [place] [address], [place] [address] 11 Aug, 2013 [facility] [address] [id number] [address] [place] [address], [place] [address] Aug, [facility] [address] [id number] [address] [place] [address], [place] [address] 05 Aug, 2013 [facility] [address] [id number] [address] [place] [address], [place] [address] 05 Aug, 2013 [facility] [address] [id number] [address] [place] [address], [place] [address] 04 Aug, 2013 [facility] [address] [id number] [address] [place] [address], [place] [address] Aug, [facility] [address] [id number] [address] [place] [address], [place] [address] Aug, [facility] [address] [id number] [address] [place] [address], [place] [address] 24 Aug, 2013 [facility] [address] [id number] [address] [place] [address], [place] [address] 24 Aug, 2013 [facility] [address] [id number] [address] [place] [address], [place] [address] Aug, [facility] [address] [id number] [address] [place] [address], [place] [address] Aug, [facility] [address] [id number] [address] [place] [address], [place] [address] 20 Aug, 2013 [facility] [address] [id number] [address] [place] [address], [place] [address] 14 Aug, 2013 [facility] [address] [id number] [address] [place] [address], [place] [address] 14 Aug, 2013 [facility] [address] [id number] [address] [place] [address], [place] [address] 14 Aug, 2013 [facility] [address] [id number] [address] [place] [address], [place] [address] 14 Aug, 2013 [facility] [address] [id number] [address] [place] [address], [place] [address] 07 Aug, 2013 [facility] [address] [id number] [address] [place] [address], [place] [address] 07 Aug, 2013 [facility] [address] [id number] [address] [place] [address], [place] [address] 06 Aug, 2013 [facility] [address] [id number] [address] [place] [address], [place] [address] 06 Aug, 2013 [facility] [address] [id number] [address] [place] [address], [place] [address] 04 Aug, 2013 [facility] [address] [id number] [address] [place] [address], [place] [address] 04 Aug, 2013 [facility] [address] [id number] [address] [place] [address], [place] [address] 03 Aug, 2013 [facility] [address] [id number] [address] [place] [address], [place] [address] Jul, [facility] [address] [id number] [address] [place] [address], [place] [address] Jul, [facility] [address] [id number] [address] [place] [address], [place] [address] Jul, [facility] [address] [id number] [address] [place] [address], [place] [address] Jul, [facility] [address] [id number] [address] [place] [address], [place] [address] Jul, [facility] [address] [id number] [address] [place] [address], [place] [address] Jul, [facility] [address] [id number] [address] [place] [address], [place] [address] Jul, [facility] [address] [id number] [address] [place] [address], [place] [address] Jul, [facility] [address] [id number] [address] [place] [address], [place] [address] Jul, [facility] [facility] [address] [id number] [address] [place] [address], [place] [address] Jul, [facility] [address] [id number] [address] [place] [address], [place] [address] Jul, [facility] [address] [id number] [address] [place] [address], [place] [address] Jul, [facility] [address] [id number] [address] [place] [address], [place] [address] Jul, [facility] [address] [id number] [address] [place] [address], [place] [address] Jul, [facility] [address] [id number] [address] [place] [address], [place] [address] Jul, [facility] [address] [id number] [address] [place] [address], [place] [address] Jul, [facility] [address] [id number] [address] [place] [address], [place] [address] Jul, [facility] [address] [id number] [address] [place] [address], [place] [address] Jul, [facility] [address] [id number] [address] [place] [address], [place] [address] Jul, [facility] [address] [id number] [address] [place] [address], [place] [address] Jul, [facility] [address] [id number] [address] [place] [address], [place] [address] Jun, [facility] [address] [id number] [address] [place] [address], [place] [address] Jun, [facility] [address] [id number] [address] [place] [address], [place] [address] Jun, [facility] [address] [id number] [address] [place] [address], [place] [address] Jun, [facility] [address] [id number] [address] [place] [address], [place] [address] Jun, [facility] [address] [id number] [address] [place] [address], [place] [address] Jun, [facility] [address] [id number] [address] [place] [address], [place] [address] Jun, [facility] [address] [id number] [address] [place] [address], [place] [address] Jun, [facility] [address] [id number] [address] [place] [address], [place] [address] Jun, [facility] [address] [id number] [address] [place] [address], [place] [address] Jun, [facility] [address] [id number] [address] [place] [address], [place] [address] Jun, [facility] [address] [id number] [address] [place] [address], [place] [address] Jun, [facility] [address] [id number] [address] [place] [address], [place] [address] Jun, [facility] [address] [id number] [address] [place] [address], [place] [address] Jun, [facility] [address] [id number] [address] [place] [address], [place] [address] Jun, [facility] [address] [id number] [address] [place] [address], [place] [address] Jun, [facility] [address] [id number] [address] [place] [address], [place] [address] Jun, [facility] [address] [id number] [address] [place] [address] 17 Jun, 2013 [facility] [address] [id number] [address] [place] [address], [place] [address] 17 Jun, 2013 [facility] [address] [id number] [address] [place] [address], [place] [address] Jun, [facility] [address] [id number] [address] [place] [address], [place] [address] Jun, [facility] [address] [id number] [address] [place] [address], [place] [address] Jun, [facility] [address] [id number] [address] [place] [address], [place] [address] Jun, [facility] [address] [id number] [address] [place] [address], [place] [address] Jun, [facility] [address] [id number] [address] [place] [address], [place] [address] Jun, [facility] [address] [id number] [address] [place] [address], [place] [address] Jun, [facility] [address] [id number] [address] [place] [address], [place] [address] Jun, [facility] [address] [id number] [address] [place] [address], [place] [address] May, [facility] [address] [id number] [address] [place] [address], [place] [address] May, [facility] [address] [id number] [address] [place] [address] May, [facility] [address] [id number] [address] [place] [address], [place] [address] May, [facility] [address] [id number] [address] [place] [address], [place] [address] May, [facility] [address] [id number] [address] [place] [address], [place] [address] May, [facility] [address] [id number] [address] [place] [address], [place] [address] 30 Apr, 2012 [facility] [address] [id number] [address] [place] [address], [place] [address] 30 Apr, 2012 [facility] [address] [id number] [address] [place] [address], [place] [address] 30 Apr, 2012 [facility] [address] [id number] [address] [place] [address], [place] [address] 30 Apr, 2012 [facility] [address] [id number] [address] [place] [address], [place] [address] Apr, 2012 [facility] [address] [id number] [address] [place] [address], [place] [address] 15 Apr, 2012 [facility] [address] [id number] [address] [place] [address], [place] [address] 15 Apr, 2013 [facility] [address] [id number] [address] [place] [address], [place] [address] Apr, [facility] [address] [id number] [address] [place] [address], [place] [address] 26 Sep, 2012 [facility] [address] [id number] [address] [place] [address], [place] [address] 24 Sep, 2012 [facility] [address] [id number] [address] [place] [address], [place] [address] 17 Sep, 2012 [facility] [address] [id number] [address] [place] [address], [place] [address] 17 Sep, 2012 [facility] [address] [id number] [address] [place] [address], [place] [address] 11 Sep, 2012 [facility] [address] [id number] [address] [place] [address], [place] [address] 10 Sep, 2012 [facility] [address] [id number] [address] [place] [address], [place] [address] 05 Sep, 2012 [facility] [address] [id number] [address] [place] [address], [place] [address] Mar, [facility] [address] [id number] [address] [place] [address], [place] [address] Jan, [facility] [address] [id number] [address] [place] [address], [place] [address] Jan, [facility] [address] [id number] [address] [place] [address], [place] [address] Jan, [facility] [address] [id number] [address] [place] [address], [place] [address] Jan, [facility] [address] [id number] [address] [place] [address], [place] [address] Jan, [facility] [address] [id number] [address] [place] [address], [place] [address] Jan, [facility] [address] [id number] [address] [place] [address], [place] [address] Dec, [facility] [address] [id number] [address] [place] [address], [place] [address] 24 Dec, 2012 [facility] [address] [id number] [address] [place] [address], [place] [address] Dec, [facility] [address] [id number] [address] [place] [address], [place] [address] Dec, [facility] [address] [id number] [address] [place] [address], [place] [address] 18 Dec, 2012 [facility] [address] [id number] [address] [place] [address], [place] [address] 17 Dec, 2012 [facility] [address] [id number] [address] [place] [address], [place] [address] 16 Dec, 2012 [facility] [address] [id number] [address] [place] [address], [place] [address] 16 Dec, 2012 [facility] [address] [id number] [address] [place] [address], [place] [address] 15 Dec, 2012 [facility] [address] [id number] [address] [place] [address], [place] [address] 10 Dec, 2012 [facility] [address] [id number] [address] [place] [address], [place] [address] Dec, [facility] [address] [id number] [address] [place] [address], [place] [address] Dec, [facility] [address] [id number] [address] [place] [address], [place] [address] Dec, [facility] [address] [id number] [address] [place] [address], [place] [address] Dec, [facility] [address] [id number] [address] [place] [address], [place] [address] Dec, [facility] [address] [id number] [address] [place] [address], [place] [address] Dec, [facility] [address] [id number] [address] [place] [address], [place] [address] October, [facility] [address] [id number] [address] [place] [address], [place] [address] October, [facility] [address] [id number] [address] [place] [address], [place] [address] October, [facility] [address] [id number] [address] [place] [address], [place] [address] October, [facility] [address] [id number] [address] [place] [address], [place] [address] October, [facility] [address] [id number] [address] [place] [address], [place] [address] October, [facility] [address] [id number] [address] [place] [address], [place] [address] October, [facility] [address] [id number] [address] [place] [address], [place] [address] Oct, [facility] [address] [id number] [address] [place] [address], [place] [address] Oct, [facility] [address] [id number] [address] [place] [address], [place] [address] 24 Oct, 2012 [facility] [address] [id number] [address] [place] [address], [place] [address] 23 Oct, 2012 [facility] [address] [id number] [address] [place] [address], [place] [address] Oct, [facility] [address] [id number] [address] [place] [address], [place] [address] 18 Oct, 2012 [facility] [address] [id number] [address] [place] [address], [place] [address] 17 Oct, 2012 [facility] [address] [id number] [address] [place] [address], [place] [address] 15 Oct, 2012 [facility] [address] [id number] [address] [place] [address], [place] [address] Oct, [facility] [address] [id number] [address] [place] [address], [place] [address] Oct, [facility] [address] [id number] [address] [place] [address], [place] [address] Oct, [facility] [address] [id number] [address] [place] [address], [place] [address] Oct, [facility] [address] [id number] [address] [place] [address], [place] [address] Aug, [facility] [address] [id number] [address] [place] [address], [place] [address] Aug, [facility] [address] [id number] [address] [place] [address], [place] [address] Aug, [facility] [address] [id number] [address] [place] [address], [place] [address] 06 Aug, 2012 [facility] [address] [id number] [address] [place] [address], [place] [address] 05 Aug, 2012 [facility] [address] [id number] [address] [place] [address], [place] [address] 05 Aug, 2012 [facility] [address] [id number] [address] [place] [address], [place] [address] 20 Aug, 2012 [facility] [address] [id number] [address] [place] [address], [place] [address] 14 Aug, 2012 [facility] [address] [id number] [address] [place] [address], [place] [address] 12 Aug, 2012 [facility] [address] [id number] [address] [place] [address], [place] [address] 11 Aug, 2012 [facility] [address] [id number] [address] [place] [address], [place] [address] 29 Jul, 2012 [facility] [address] [id number] [address] [place] [address], [place] [address] 15 Jul, 2012 [facility] [address] [id number] [address] [place] [address], [place] [address] 08 Jul, 2012 [facility] [address] [id number] [address] [place] [address], [place] [address] 20 Jun, 2012 [facility] [address] [id number] [address] [place] [address], [place] [address] 18 Jun, 2012 [facility] [address] [id number] [address] [place] [address], [place] [address] 18 Jun, 2012 [facility] [address] [id number] [address] [place] [address], [place] [address] 18 Jun, 2012 [facility] [address] [id number] [address] [place] [address], [place] [address] 18 Jun, 2012 [facility] [address] [id number] [address] [place] [address], [place] [address] 14 Jun, 2012 [facility] [address] [id number] [address] [place] [address], [place] [address] 14 Jun, 2012 [facility] [address] [id number] [address] [place] [address], [place] [address] 13 Jun, 2012 [facility] [address] [id number] [address] [place] [address], [place] [address] 13 Jun, 2012 [facility] [address] [id number] [address] [place] [address], [place] [address] Jun, [facility] [address] [id number] [address] [place] [address], [place] [address] Jun, [facility] [address] [id number] [address] [place] [address], [place] [address] Jun, [facility] [address] [id number] [address] [place] [address], [place] [address] Jun, [facility] [address] [id number] [address] [place] [address], [place] [address] Jun, [facility] [address] [id number] [address] [place] [address], [place] [address] Jun, [facility] [address] [id number] [address] [place] [address], [place] [address] Jun, [facility] [address] [id number] [address] [place] [address], [place] [address] Jun, [facility] [address] [id number] [address] [place] [address], [place] [address] Jun, [facility] [address] [id number] [address] [place] [address], [place] [address] Jun, [facility] [address] [id number] [address] [place] [address], [place] [address] Jun, [facility] [address] [id number] [address] [place] [address], [place] [address] Jun, [facility] [address] [id number] [address] [place] [address], [place] [address] Jun, [facility] [address] [id number] [address] [place] [address], [place] [address] Jun, [facility] [address] [id number] [address] [place] [address] [address] May, [facility] [address] [id number] [address] [place] [address], [place] [address] May, [facility] [address] [id number] [address] [place] [address], [place] [address] May, [facility] [address] [id number] [address] [place] [address], [place] [address] May, [facility] [address] [id number] [address] [place] [address], [place] [address] May, [facility] [address] [id number] [address] [place] [address], [place] [address] May, [facility] [address] [id number] [address] [place] [address], [place] [address] May, [facility] [address] [id number] [address] [place] [address], [place] [address] May, [facility] [address] [id number] [address] [place] [address], [place] [address] Apr, [facility] [address] [id number] [address] [place] [address], [place] [address] 30 Apr, 2012 [facility] [address] [id number] [address] [place] [address] 29 Apr, 2012 [facility] [address] [id number] [address] [place] [address] Apr, [facility] [address] [id number] [address] [place] [address] Apr, [facility] [address] [id number] [address] [place] [address], [place] [address] Apr, [facility] [address] [id number] [address] [place] [address] Apr, [facility] [address] [id number] [address] [place] [id number] Apr, [facility] [address] [id number] [address] [place] [address], [place] [address] Apr, [facility] [address] [id number] [address] [place] [address], [place] [address] 08 Apr, 2012 [facility] [address] [id number] [address] [place] [address], [place] [address] Apr, [facility] [address] [id number] [address] [place] [address], [place] [address] Apr, [facility] [address] [id number] [address] [place] [address], [place] [address] 19 Mar, 2012 [facility] [address] [id number] [address] [place] [address], [place] [address] 18 Mar, 2012 [facility] [address] [id number] [address] [place] [address], [place] [address] Mar, [facility] [address] [id number] [address] [place] [address], [place] [address] Mar, [facility] [address] [id number] [address] [place] [id number] Mar, [facility] [address] [id number] [address] [place] [id number] Mar, [facility] [address] [id number] [address] [place] [id number] Mar, [facility] [address] [id number] [address] [place] [phone] Jan, [facility] [address] [id number] [address] [place] [id number] Jan, [facility] [address] [id number] [address] [place] [id number] Jan, [facility] [address] [id number] [address] [place] [address] [id number] Jan, [facility] [address] [id number] [address] [place] [id number] Jan, [facility] [address] [id number] [facility] [place] [address] 16 Feb, 2012 [facility] [address] [id number] [facility] [place] [address] Jan, [facility] [address] [id number] [facility] [place] [address] Jan, [facility] [address] [id number] [address] [place] [address], [place] [address] Jan, [facility] [address] [id number] [address] [place] [address], [place] [address] Jan, [facility] [address] [id number] [address] [place] [address], [place] [address] Jan, [facility] [address] [id number] [address] [place] [address], [place] [address] Dec, [facility] [address] [id number] [address] [place] [address], [place] [address] Dec, [facility] [address] [id number] [address] [place] [address], [place] [address] Dec, [facility] [address] [id number] [address] [place] [address], [place] [address] Dec, [facility] [address] [id number] [address] [place] [address], [place] [address] Dec, [facility] [address] [id number] [address] [place] [address], [place] [address] Dec, [facility] [address] [id number] [address] [place] [address], [place] [address] 18 Jan, 2012 [facility] [address] [id number] [address] [place] [address], [place] [address] 17 Jan, 2012 [facility] [address] [id number] [address] [place] [address], [place] [address] 16 Jan, 2012 [facility] [address] [id number] [address] [place] [address], [place] [address] Dec, [facility] [address] [id number] [address] [place] [address], [place] [address] 13 Jan, 2012 [facility] [address] [id number] [address] [place] [address], [place] [address] Dec, [facility] [address] [id number] [address] [place] [address], [place] [address] Dec, [facility] [address] [id number] [address] [place] [address], [place] [address] Dec, [facility] [address] [id number] [address] [place] [address], [place] [address] Dec, [facility] [address] [id number] [address] [place] [address], [place] [address] Dec, [facility] [address] [id number] [address] [place] [address], [place] [address] Dec, [facility] [address] [id number] [address] [place] [address], [place] [address] Dec, [facility] [address] [id number] [address] [place] [address], [place] [address] Dec, [facility] [address] [id number] [address] [place] [address], [place] [address] October, [facility] [address] [id number] [address] [place] [address], [place] [address] October, [facility] [address] [id number] [address] [place] [address], [place] [address] October, [facility] [address] [id number] [address] [place] [address], [place] [address] October, [facility] [address] [id number] [address] [place] [address], [place] [address] October, [facility] [address] [id number] [address] [place] [address], [place] [address] October, [facility] [address] [id number] [address] [place] [address], [place] [address] 30 Oct, 2011 [facility] [address] [id number] [address] [place] [address], [place] [address] 24 Oct, 2011 [facility] [address] [id number] [address] [place] [address], [place] [address] Oct, [facility] [address] [id number] [address] [place] [address], [place] [address] Oct, [facility] [address] [id number] [address] [place] [address], [place] [address] 04 Oct, 2011 [facility] [address] [id number] [address] [place] [address], [place] [address] Oct, [facility] [address] [id number] [address] [place] [address], [place] [address] Oct, [facility] [address] [id number] [address] [place] [address], [place] [address] 29 Sep, 2011 [facility] [address] [id number] [address] [place] [address], [place] [address] 29 Sep, 2011 [facility] [address] [id number] [address] [place] [address], [place] [address] Aug, [facility] [address] [id number] [address] [place] [address], [place] [address] Aug, [facility] [address] [id number] [address] [place] [address], [place] [address] Aug, [facility] [address] [id number] [address] [place] [address], [place] [address] Aug, [facility] [address] [id number] [address] [place] [address], [place] [address] Aug, [facility] [address] [id number] [address] [place] [address], [place] [address] Aug, [facility] [address] [id number] [address] [place] [address], [place] [address] 08 Aug, 2011 [facility] [address] [id number] [address] [place] [address], [place] [address] Jul, [facility] [address] [id number] [address] [place] [address], [place] [address] Jul, [facility] [address] [id number] [address] [place] [address], [place] [address] Jul, [facility] [address] [id number] [address] [place] [address], [place] [address] Jul, [facility] [address] [id number] [address] [place] [address], [place] [address] Jun, [facility] [address] [id number] [address] [place] [address], [place] [address] Jun, [facility] [address] [id number] [address] [place] [address], [place] [address] May, [facility] [address] [id number] [address] [place] [address], [place] [address] May, [facility] [address] [id number] [address] [place] [address], [place] [address] May, [facility] [address] [id number] [address] [place] [phone] May, [facility] [address] [id number] [address] [place] [phone] May, [facility] [address] [id number] [address] [place] [phone] Apr, [facility] [address] [id number] [address] [place] [address], [place] [address] Apr, [facility] [address] [id number] [address] [place] [address], [place] [address] Apr, [facility] [address] [id number] [address] [place] [id number] 15 Jan, 2011 [facility] [address] [id number] [address] [place] [phone] Dec, [facility] [address] [facility] [id number] [address] [place] [phone] October, [facility] [address] [facility] [id number] [address] [place] [phone] Jun, [facility] [address] [facility] [id number] [address] [place] [phone] Apr, [facility] [address] [facility] [id number] [address] [place] [phone] Apr, [facility] [address] [facility] [id number] [address] [place] [id number] Apr, [facility] [address] [facility] [id number] [address] [place] [phone] Jun, IMMUNIZATIONS No Known Immunizations SOCIAL HISTORY Never Assessed REASON FOR VISIT adderall 09/07/2017 PLAN OF CARE VITAL SIGNS MEDICATIONS Medication Instructions Dosage Frequency Start Date End Date Duration S tatus Adderall 10 mg Orally 3 times a day 1 tablet 8h Aug, 28 days Active RESULTS No Results PROCEDURES No Known procedures INSTRUCTIONS MEDICATIONS ADMINISTERED No Known Medications MEDICAL (GENERAL) HISTORY Type Description Date Medical History Psychiatric disorder Medical History Hard of hearing Surgical History Neofibrous tumor Surgical History back injection Hospitalization History Intestinal blockage Hospitalization History past psychiatric hospitalizations x2
--- OUTSIDE RECORDS SUMMARY | 2020-01-25 13:15 | XMS REPORT ---
Author Ana Kent Organization [facility] Address [address] [place] [address] Care Team Providers Care Launch Steward Name Role Phone JOSE MIGUELZENAIDAMARAL Unavailable PROBLEMS Type Condition ICD9-CM Code [id number] Code Onset Dates Condition S tatus SNOMED Code Problem Attention deficit R41.840 Active 76 716302 Problem Cannabis abuse F12.10 Active 08027 009 Problem Chronic hepatitis C without hepatic coma B18.2 Active 647748614 Problem Attention deficit hyperactivity disorder (ADHD), combi luciano type F90.2 Active 87043828 Problem Bipolar disorder, in partial remission, most rec ent episode hypomanic F31.71 Active 082107378 Problem H/O laminectomy Z98.89 Active 1616 91149 Problem Bipolar 1 disorder F31.9 Active 3 07338267 Problem Anxiety disorder, unspecified type F41.9 Active 938518469 Problem Other chronic pain G89.29 Active 8 5892518 ALLERGIES No Information ENCOUNTERS Encounter Location Date Diagnosis [place] [address] [facility] [id number] [address] [place] [id number] Oct, [place] [address] [facility] [id number] [address] [place] [id number] Aug, Bipolar disorder, in partial remission, most recent episode hypomanic F31.71 [facility] [address] [facility] [id number] [address] [place] [id number] Aug, Bipolar disorder, in partial remission, most recent episode hypomanic F31.71 [facility] [address] [facility] [id number] [address] [place] [id number] 07 Aug, 2017 Bipolar disorder, in partial remission, most recent episode hypomanic F31.71 [facility] [address] [facility] [id number] [address] [place] [address] Jul, Bipolar disorder, in partial remission, most recent episode hypomanic F31.71 ; Attention deficit hyperactivity disorder (ADHD), combined type F90.2 and Anxiety disorder, unspecified type F41.9 [facility] [address] [id number] [address] [place] [id number] Jul, Bipolar disorder, in partial remission, most recent episode hypomanic F31.71 [facility] [address] [id number] [address] [place] [address] Jun, Bipolar disorder, in partial remission, most recent episode hypomanic F31.71 [facility] [address] [id number] [address] [place] [address] May, Bipolar disorder, in partial remission, most recent episode hypomanic F31.71 [facility] [address] [id number] [address] [place] [address] May, Bipolar disorder, in partial remission, most recent episode hypomanic F31.71 [facility] [address] [id number] [address] [place] [address] Apr, [facility] [address] [id number] [address] [place] [address] Apr, Bipolar disorder, in partial remission, most recent episode hypomanic F31.71 ; Attention deficit hyperactivity disorder (ADHD), combined type F90.2 ; Anxiety disorder, unspecified type F41.9 and Cannabis abuse F12.10 [facility] [address] [id number] [address] [place] [address] Apr, Attention deficit hyperactiv ity disorder (ADHD), combined type F90.2 [facility] [address] [id number] [address] [place] [address] Mar, Attention deficit hyperactiv ity disorder (ADHD), combined type F90.2 [facility] [address] [id number] [address] [place] [id number] 14 Mar, 2017 Anxiety disorder, unspecifie d type F41.9 [facility] [address] [id number] [address] [place] [id number] Jan, Attention deficit hyperactiv ity disorder (ADHD), combined type F90.2 [facility] [address] [facility] [id number] [address] [place] [phone] Jan, Anxiety disorder, unspecifie d type F41.9 [facility] [address] [facility] [id number] [address] [place] [address] Jan, Other chronic pain G89.29 ; Chronic hepatitis C without hepatic coma B18.2 and Bipolar 1 disorder F31.9 [facility] [address] [id number] [address] [place] [address] Dec, Attention deficit hyperactiv ity disorder (ADHD), combined type F90.2 [facility] [address] [facility] [id number] [address] [place] [address] Dec, Bipolar disorder, in partial remission, most recent episode hypomanic F31.71 ; Attention deficit hyperactivity disorder (ADHD), combined type F90.2 and Anxiety disorder, unspecified type F41.9 [facility] [address] [facility] [id number] [address] [place] [id number] Dec, Bipolar disorder, in partial remission, most recent episode hypomanic F31.71 ; Attention deficit hyperactivity disorder (ADHD), combined type F90.2 and Anxiety disorder, unspecified type F41.9 [facility] [address] [facility] [id number] [address] [place] [address] Dec, Bipolar 1 disorder F31.9 and Attention deficit R41.840 [facility] [address] [facility] [id number] [address] [place] [address] Oct, Other chronic pain G89.29 ; Alopecia L65.9 and Screening, lipid Z13.220 [facility] [address] [facility] [id number] [address] [place] [phone] Oct, [facility] [address] [facility] [id number] [address] [place] [address] Aug, [facility] [address] [id number] [address] [place] [address] Aug, Eustachian tube dysfunction, right H69.81 ; Vertigo R42 and Other chronic pain G89.29 [facility] [address] [id number] [address] [place] [address] Aug, [facility] [address] [id number] [address] [place] [address] Jun, [facility] [address] [id number] [address] [place] [address] Jun, Low back pain M54.5 and Othe r chronic pain G89.29 [facility] [address] [id number] [address] [place] [address] Jun, [facility] [address] [id number] [address] [place] [address] May, [facility] [address] [id number] [address] [place] [address] Jan, [facility] [address] [id number] [address] [place] [address] Dec, [facility] [address] [facility] [id number] [address] [place] [address] Dec, [facility] [address] [id number] [address] [place] [id number] Jun, [facility] [address] [facility] [id number] [address] [place] [address] Apr, Eustachian tube dysfunction, unspecified laterality H69.80 ; Hot flashes N95.1 and Encounter for immunization Z23 [facility] [address] [id number] [address] [place] [address] Jan, [facility] [address] [facility] [id number] [address] [place] [address] Jan, [facility] [address] [id number] [address] [place] [address] Jan, [facility] [address] [id number] [address] [place] [address] Jan, [facility] [address] [facility] [id number] [address] [place] [address] Jan, Encounter to establish care V65.8 ; Bipolar 1 disorder 296.7 ; Abdominal pain 789.00 ; Constipation 564.00 ; Hard of hearing 389.9 and Drug abuse 305.90 [facility] [address] [id number] [address] [place] [address] Dec, [facility] [address] [id number] [address] [place] [address] October, [facility] [address] [facility] [id number] [address] [place] [address] October, [facility] [address] [id number] [address] [place] [address] Oct, [facility] [address] [id number] [address] [place] [address] Oct, [facility] [address] [facility] [id number] [address] [place] [address] Oct, [facility] [address] [facility] [id number] [address] [place] [address] Aug, [facility] [address] [id number] [address] [place] [id number] Aug, [facility] [address] [id number] [address] [place] [address] Aug, [facility] [address] [id number] [address] [place] [address] Aug, [facility] [address] [facility] [id number] [address] [place] [phone] Aug, [facility] [address] [facility] [id number] [address] [place] [address] Aug, 2014 [facility] [address] [id number] [address] [place] [address], [place] [address] Aug, 2014 [facility] [address] [id number] [address] [place] [address], [place] [address] Aug, 2014 [facility] [address] [id number] [address] [place] [address], [place] [address] Aug, 2014 [facility] [address] [id number] [address] [place] [address], [place] [address] Aug, 2014 [facility] [address] [id number] [address] [place] [address], [place] [address] Aug, 2014 [facility] [address] [id number] [address] [place] [address], [place] [address] Aug, 2014 [facility] [address] [id number] [address] [place] [address], [place] [address] Aug, 2014 [facility] [address] [id number] [address] [place] [address], [place] [address] Aug, [facility] [address] [id number] [address] [place] [address], [place] [address] Aug, [facility] [address] [id number] [address] [place] [address], [place] [address] Jul, [facility] [address] [id number] [address] [place] [address], [place] [id number] Jul, [facility] [address] [id number] [address] [place] [address], [place] [address] Jul, [facility] [address] [id number] [address] [place] [address], [place] [address] Jul, [facility] [address] [id number] [address] [place] [address], [place] [address] Jul, [facility] [address] [id number] [address] [place] [address], [place] [address] Jul, [facility] [address] [id number] [address] [place] [address], [place] [address] Jul, [facility] [address] [id number] [address] [place] [address], [place] [address] Jul, [facility] [address] [id number] [address] [place] [address], [place] [address] Jun, [facility] [address] [id number] [address] [place] [address], [place] [address] Jun, [facility] [address] [id number] [address] [place] [address], [place] [address] Jun, [facility] [address] [id number] [address] [place] [address], [place] [address] Jun, [facility] [address] [id number] [address] [place] [address], [place] [address] Jun, [facility] [address] [id number] [address] [place] [address], [place] [address] Jun, [facility] [address] [id number] [address] [place] [address], [place] [address] Jun, [facility] [address] [id number] [address] [place] [address], [place] [address] Jun, [facility] [address] [id number] [address] [place] [address], [place] [address] Jun, [facility] [address] [id number] [address] [place] [address], [place] [address] Jun, [facility] [address] [id number] [address] [place] [address], [place] [address] Jun, [facility] [address] [id number] [address] [place] [address], [place] [address] May, [facility] [address] [id number] [address] [place] [address], [place] [address] May, [facility] [address] [id number] [address] [place] [address] [address] May, [facility] [address] [id number] [address] [place] [address], [place] [address] May, [facility] [address] [id number] [address] [place] [address], [place] [address] May, [facility] [address] [id number] [address] [place] [address], [place] [address] May, [facility] [address] [id number] [address] [place] [address], [place] [address] May, [facility] [address] [id number] [address] [place] [address], [place] [address] Apr, [facility] [address] [id number] [address] [place] [address], [place] [address] Apr, [facility] [address] [id number] [address] [place] [address], [place] [address] Apr, [facility] [address] [id number] [address] [place] [address], [place] [address] Apr, [facility] [address] [id number] [address] [place] [address], [place] [address] Apr, [facility] [address] [id number] [address] [place] [address], [place] [address] Apr, [facility] [address] [id number] [address] [place] [address], [place] [address] Mar, [facility] [address] [id number] [address] [place] [id number] 29 Mar, 2014 [facility] [address] [id number] [address] [place] [address], [place] [address] Mar, [facility] [address] [id number] [address] [place] [address], [place] [address] Mar, [facility] [address] [id number] [address] [place] [address], [place] [address] Mar, [facility] [address] [id number] [address] [place] [address], [place] [address] Mar, [facility] [address] [id number] [address] [place] [address], [place] [address] Jan, [facility] [address] [id number] [address] [place] [address], [place] [address] Jan, [facility] [address] [id number] [address] [place] [address], [place] [address] Jan, [facility] [address] [id number] [address] [place] [address], [place] [address] Jan, [facility] [address] [id number] [address] [place] [address], [place] [address] Dec, [facility] [address] [id number] [address] [place] [address], [place] [address] Dec, [facility] [address] [id number] [address] [place] [address], [place] [address] Dec, [facility] [address] [id number] [address] [place] [address], [place] [address] Dec, [facility] [address] [id number] [address] [place] [address], [place] [address] Dec, [facility] [address] [id number] [address] [place] [address], [place] [address] Dec, [facility] [address] [id number] [address] [place] [address], [place] [address] Dec, [facility] [address] [id number] [address] [place] [address], [place] [address] Dec, [facility] [address] [id number] [address] [place] [address], [place] [address] Dec, [facility] [address] [id number] [address] [place] [address], [place] [address] Dec, [facility] [address] [id number] [address] [place] [address], [place] [address] Dec, [facility] [address] [id number] [address] [place] [address], [place] [address] Dec, [facility] [address] [id number] [address] [place] [address], [place] [address] October, [facility] [address] [id number] [address] [place] [address], [place] [address] October, [facility] [address] [id number] [address] [place] [address], [place] [address] October, [facility] [address] [id number] [address] [place] [address], [place] [address] October, [facility] [address] [id number] [address] [place] [address], [place] [address] October, [facility] [address] [id number] [address] [place] [address], [place] [address] October, [facility] [address] [id number] [address] [place] [address], [place] [address] Oct, [facility] [address] [id number] [address] [place] [address], [place] [address] Oct, [facility] [address] [id number] [address] [place] [address], [place] [address] Oct, [facility] [address] [id number] [address] [place] [address], [place] [address] Oct, [facility] [address] [id number] [address] [place] [address], [place] [address] Oct, [facility] [address] [id number] [address] [place] [address], [place] [address] Oct, [facility] [address] [id number] [address] [place] [address], [place] [address] Oct, [facility] [address] [id number] [address] [place] [address], [place] [address] Oct, [facility] [address] [id number] [address] [place] [address], [place] [address] Oct, [facility] [address] [id number] [facility] [place] [place] [address] Oct, [facility] [address] [id number] [address] [place] [address], [place] [address] Oct, [facility] [address] [id number] [address] [place] [address], [place] [address] Oct, [facility] [address] [id number] [address] [place] [address], [place] [address] Aug, [facility] [address] [id number] [address] [place] [address], [place] [address] Aug, [facility] [address] [id number] [address] [place] [address], [place] [address] Aug, [facility] [address] [id number] [address] [place] [address], [place] [address] Aug, [facility] [address] [id number] [address] [place] [address], [place] [address] Aug, [facility] [address] [id number] [address] [place] [address], [place] [address] Aug, [facility] [address] [id number] [address] [place] [address], [place] [address] Aug, [facility] [address] [id number] [address] [place] [address], [place] [address] Aug, [facility] [address] [id number] [address] [place] [address], [place] [address] Aug, [facility] [address] [id number] [address] [place] [address], [place] [address] Aug, [facility] [address] [id number] [address] [place] [address], [place] [address] Aug, [facility] [address] [id number] [address] [place] [address], [place] [address] Aug, [facility] [address] [id number] [facility] [place] [place] [address] Aug, 2013 [facility] [address] [id number] [address] [place] [address], [place] [id number] 20 Aug, 2013 [facility] [address] [id number] [address] [place] [address], [place] [id number] 14 Aug, 2013 [facility] [address] [id number] [address] [place] [address], [place] [id number] 14 Aug, 2013 [facility] [address] [id number] [address] [place] [address], [place] [id number] 14 Aug, 2013 [facility] [address] [id number] [address] [place] [address], [place] [id number] 14 Aug, 2013 [facility] [address] [id number] [address] [place] [address], [place] [id number] 07 Aug, 2013 [facility] [address] [id number] [address] [place] [address], [place] [id number] 07 Aug, 2013 [facility] [address] [id number] [address] [place] [address], [place] [id number] 06 Aug, 2013 [facility] [address] [id number] [address] [place] [address], [place] [id number] 06 Aug, 2013 [facility] [address] [id number] [address] [place] [address], [place] [id number] 04 Aug, 2013 [facility] [address] [id number] [address] [place] [address], [place] [id number] 04 Aug, 2013 [facility] [address] [id number] [address] [place] [address], [place] [id number] Aug, [facility] [address] [id number] [address] [place] [address], [place] [id number] Jul, [facility] [address] [id number] [address] [place] [address], [place] [id number] Jul, [facility] [address] [id number] [address] [place] [address], [place] [id number] Jul, [facility] [address] [id number] [address] [place] [address], [place] [id number] Jul, [facility] [address] [id number] [address] [place] [address], [place] [id number] Jul, [facility] [address] [id number] [address] [place] [address], [place] [id number] Jul, [facility] [address] [id number] [address] [place] [address], [place] [id number] Jul, [facility] [address] [id number] [address] [place] [address], [place] [id number] Jul, [facility] [address] [id number] [address] [place] [address], [place] [id number] Jul, [facility] [address] [id number] [address] [place] [address], [place] [id number] Jul, [facility] [address] [id number] [address] [place] [address], [place] [id number] Jul, [facility] [address] [id number] [address] [place] [address], [place] [id number] Jul, [facility] [address] [id number] [address] [place] [address], [place] [id number] Jul, [facility] [address] [id number] [address] [place] [address], [place] [id number] Jul, [facility] [address] [id number] [address] [place] [address], [place] [id number] Jul, [facility] [address] [id number] [address] [place] [address], [place] [id number] Jul, [facility] [address] [id number] [address] [place] [address], [place] [id number] Jul, [facility] [address] [id number] [address] [place] [address], [place] [id number] Jul, [facility] [address] [id number] [address] [place] [address], [place] [id number] Jul, [facility] [address] [id number] [address] [place] [address], [place] [id number] Jul, [facility] [address] [id number] [address] [place] [address], [place] [id number] Jun, [facility] [address] [id number] [address] [place] [address], [place] [id number] Jun, [facility] [address] [id number] [address] [place] [address], [place] [id number] Jun, [facility] [facility] [address] [id number] [address] [place] [address], [place] [address] Jun, [facility] [address] [id number] [address] [place] [address], [place] [address] Jun, [facility] [address] [id number] [address] [place] [address], [place] [address] Jun, [facility] [address] [id number] [address] [place] [address], [place] [address] Jun, [facility] [address] [id number] [address] [place] [address], [place] [address] Jun, [facility] [address] [id number] [address] [place] [address], [place] [address] Jun, [facility] [address] [id number] [address] [place] [address], [place] [address] Jun, [facility] [address] [id number] [address] [place] [address], [place] [address] Jun, [facility] [address] [id number] [address] [place] [address], [place] [address] Jun, [facility] [address] [id number] [address] [place] [address], [place] [address] Jun, [facility] [address] [id number] [address] [place] [address], [place] [address] 20 Jun, 2013 [facility] [address] [id number] [address] [place] [address], [place] [address] 20 Jun, 2013 [facility] [address] [id number] [address] [place] [address], [place] [address] 18 Jun, 2013 [facility] [address] [id number] [address] [place] [address], [place] [address] 18 Jun, 2013 [facility] [address] [id number] [address] [place] [address], [place] [address] 17 Jun, 2013 [facility] [address] [id number] [address] [place] [address], [place] [address] 17 Jun, 2013 [facility] [address] [id number] [address] [place] [address], [place] [address] 13 Jun, 2013 [facility] [address] [id number] [address] [place] [address], [place] [address] 12 Jun, 2013 [facility] [address] [id number] [address] [place] [address], [place] [address] 12 Jun, 2013 [facility] [address] [id number] [address] [place] [address], [place] [address] 09 Jun, 2013 [facility] [address] [id number] [address] [place] [address], [place] [address] 05 Jun, 2013 [facility] [address] [id number] [address] [place] [address], [place] [address] 05 Jun, 2013 [facility] [address] [id number] [address] [place] [address], [place] [address] 04 Jun, 2013 [facility] [address] [id number] [address] [place] [address], [place] [address] Jun, [facility] [address] [id number] [address] [place] [address], [place] [address] 17 May, 2013 [facility] [address] [id number] [address] [place] [address], [place] [address] 17 May, 2013 [facility] [address] [id number] [address] [place] [address], [place] [address] May, [facility] [address] [id number] [address] [place] [address], [place] [address] May, [facility] [address] [id number] [address] [place] [address], [place] [address] May, [facility] [address] [id number] [address] [place] [address], [place] [address] May, [facility] [address] [id number] [address] [place] [address], [place] [address] Apr, [facility] [address] [id number] [address] [place] [address], [place] [address] Apr, [facility] [address] [id number] [address] [place] [address], [place] [address] Apr, [facility] [address] [id number] [address] [place] [address], [place] [address] Apr, [facility] [address] [id number] [address] [place] [address], [place] [address] Apr, [facility] [address] [id number] [address] [place] [address], [place] [address] Apr, [facility] [address] [id number] [address] [place] [address], [place] [address] Apr, [facility] [address] [id number] [address] [place] [address], [place] [address] Apr, [facility] [address] [id number] [address] [place] [address], [place] [address] 26 Mar, 2012 [facility] [address] [id number] [address] [place] [address], [place] [address] 24 Mar, 2013 [facility] [address] [id number] [address] [place] [address], [place] [address] 17 Mar, 2013 [facility] [address] [id number] [address] [place] [address], [place] [address] 17 Mar, 2013 [facility] [address] [id number] [address] [place] [address], [place] [address] 11 Mar, 2012 [facility] [address] [id number] [address] [place] [address], [place] [address] 10 Mar, 2012 [facility] [address] [id number] [address] [place] [address], [place] [address] 05 Mar, 2012 [facility] [address] [id number] [address] [place] [address], [place] [address] 04 Mar, 2013 [facility] [address] [id number] [address] [place] [address], [place] [address] Jan, [facility] [address] [id number] [address] [place] [address], [place] [address] Jan, [facility] [address] [id number] [address] [place] [address], [place] [address] 14 Jan, 2013 [facility] [address] [id number] [address] [place] [address], [place] [address] Jan, [facility] [address] [id number] [address] [place] [address], [place] [address] Jan, [facility] [address] [id number] [address] [place] [address], [place] [address] Jan, [facility] [address] [id number] [address] [place] [address], [place] [address] Dec, [facility] [address] [id number] [address] [place] [address], [place] [address] Dec, [facility] [address] [id number] [address] [place] [address], [place] [address] Dec, [facility] [address] [id number] [address] [place] [address], [place] [address] Dec, [facility] [address] [id number] [address] [place] [address], [place] [address] Dec, [facility] [address] [id number] [address] [place] [address], [place] [address] 17 Dec, 2012 [facility] [address] [id number] [address] [place] [address], [place] [address] 16 Dec, 2012 [facility] [address] [id number] [address] [place] [address], [place] [address] 16 Dec, 2012 [facility] [address] [id number] [address] [place] [address], [place] [address] 15 Dec, 2012 [facility] [address] [id number] [address] [place] [address], [place] [address] 10 Dec, 2012 [facility] [address] [id number] [address] [place] [address], [place] [address] 28 Dec, 2012 [facility] [address] [id number] [address] [place] [address], [place] [address] Dec, [facility] [address] [id number] [address] [place] [address], [place] [address] Dec, [facility] [address] [id number] [address] [place] [address], [place] [address] Dec, [facility] [address] [id number] [address] [place] [address], [place] [address] Dec, [facility] [address] [id number] [address] [place] [address], [place] [address] Dec, [facility] [address] [id number] [address] [place] [address], [place] [address] October, [facility] [address] [id number] [address] [place] [address], [place] [address] October, [facility] [address] [id number] [address] [place] [address], [place] [address] October, [facility] [address] [id number] [address] [place] [address], [place] [address] October, [facility] [address] [id number] [address] [place] [address], [place] [address] October, [facility] [address] [id number] [address] [place] [address], [place] [address] October, [facility] [address] [id number] [address] [place] [address], [place] [address] October, [facility] [address] [id number] [address] [place] [address], [place] [address] Oct, [facility] [address] [id number] [address] [place] [address], [place] [address] Oct, [facility] [address] [id number] [address] [place] [address], [place] [address] Oct, [facility] [address] [id number] [address] [place] [address], [place] [address] Oct, [facility] [address] [id number] [address] [place] [address], [place] [address] Oct, [facility] [address] [id number] [address] [place] [address], [place] [address] Oct, [facility] [address] [id number] [address] [place] [address], [place] [address] 17 Oct, 2012 [facility] [address] [id number] [address] [place] [address], [place] [address] 15 Oct, 2012 [facility] [address] [id number] [address] [place] [address], [place] [address] Oct, [facility] [address] [id number] [address] [place] [address], [place] [address] Oct, [facility] [address] [id number] [address] [place] [address], [place] [address] Oct, [facility] [address] [id number] [address] [place] [address], [place] [address] Oct, [facility] [address] [id number] [address] [place] [address], [place] [address] Aug, [facility] [address] [id number] [address] [place] [address], [place] [address] Aug, [facility] [address] [id number] [address] [place] [address], [place] [address] Aug, [facility] [address] [id number] [address] [place] [address], [place] [address] 06 Aug, 2012 [facility] [address] [id number] [address] [place] [address], [place] [address] Aug, [facility] [address] [id number] [address] [place] [address], [place] [address] 05 Aug, 2012 [facility] [address] [id number] [address] [place] [address], [place] [address] 20 Aug, 2012 [facility] [address] [id number] [address] [place] [address], [place] [address] 14 Aug, 2012 [facility] [address] [id number] [address] [place] [address], [place] [address] Aug, [facility] [address] [id number] [address] [place] [address], [place] [address] Aug, [facility] [address] [id number] [address] [place] [address], [place] [address] Jul, [facility] [address] [id number] [address] [place] [address], [place] [address] Jul, [facility] [address] [id number] [address] [place] [address], [place] [address] Jul, [facility] [address] [id number] [address] [place] [address], [place] [address] Jun, [facility] [address] [id number] [address] [place] [address], [place] [address] Jun, [facility] [address] [id number] [address] [place] [address], [place] [address] Jun, [facility] [address] [id number] [address] [place] [address], [place] [address] Jun, [facility] [address] [id number] [address] [place] [address], [place] [address] 18 Jun, 2012 [facility] [address] [id number] [address] [place] [address], [place] [address] 14 Jun, 2012 [facility] [address] [id number] [address] [place] [address], [place] [address] 14 Jun, 2012 [facility] [address] [id number] [address] [place] [address], [place] [address] 13 Jun, 2012 [facility] [address] [id number] [address] [place] [address], [place] [address] 13 Jun, 2012 [facility] [address] [id number] [address] [place] [address], [place] [address] 11 Jun, 2012 [facility] [address] [id number] [address] [place] [address], [place] [address] 11 Jun, 2012 [facility] [address] [id number] [address] [place] [address], [place] [address] 11 Jun, 2012 [facility] [address] [id number] [address] [place] [address], [place] [address] 11 Jun, 2012 [facility] [address] [id number] [address] [place] [address], [place] [address] 07 Jun, 2012 [facility] [address] [id number] [address] [place] [address], [place] [address] 07 Jun, 2012 [facility] [address] [id number] [address] [place] [address], [place] [address] 06 Jun, 2012 [facility] [address] [id number] [address] [place] [address], [place] [address] 06 Jun, 2012 [facility] [address] [id number] [address] [place] [address], [place] [address] 06 Jun, 2012 [facility] [address] [id number] [address] [place] [address], [place] [address] 06 Jun, 2012 [facility] [address] [id number] [address] [place] [address], [place] [address] Jun, [facility] [address] [id number] [address] [place] [address], [place] [address] Jun, [facility] [address] [id number] [address] [place] [address], [place] [address] Jun, [facility] [address] [id number] [address] [place] [address], [place] [address] Jun, [facility] [address] [id number] [address] [place] [address], [place] [address] May, [facility] [address] [id number] [address] [place] [address], [place] [address] May, [facility] [address] [id number] [address] [place] [address], [place] [address] May, [facility] [address] [id number] [address] [place] [address], [place] [address] May, [facility] [address] [id number] [address] [place] [address], [place] [address] May, [facility] [address] [id number] [address] [place] [address], [place] [address] May, [facility] [address] [id number] [address] [place] [address] May, [facility] [address] [id number] [address] [place] [address] May, [facility] [address] [id number] [address] [place] [id number] Apr, [facility] [address] [id number] [address] [place] [address], [place] [address] Apr, [facility] [address] [id number] [address] [place] [address], [place] [address] Apr, [facility] [address] [id number] [address] [place] [address] 16 Apr, 2012 [facility] [address] [id number] [address] [place] [address] 16 Apr, 2012 [facility] [address] [id number] [address] [place] [address] Apr, [facility] [address] [id number] [address] [place] [address] Apr, [facility] [address] [id number] [address] [place] [address] Apr, [facility] [address] [id number] [address] [place] [address] Apr, [facility] [address] [id number] [address] [place] [address] Apr, [facility] [address] [id number] [address] [place] [address] Apr, [facility] [address] [id number] [address] [place] [address] Apr, [facility] [address] [id number] [address] [place] [id number] 19 Mar, 2012 [facility] [address] [id number] [address] [place] [id number] 18 Mar, 2012 [facility] [address] [id number] [address] [place] [address] 12 Mar, 2012 [facility] [address] [id number] [address] [place] [id number] Mar, [facility] [address] [id number] [address] [place] [id number] Mar, [facility] [address] [id number] [address] [place] [id number] Mar, [facility] [address] [id number] [address] [place] [id number] 04 Mar, 2012 [facility] [address] [id number] [address] [place] [id number] Jan, [facility] [address] [id number] [address] [place] [address], [place] [address] Jan, [facility] [address] [id number] [facility] [id number] Jan, [facility] [address] [id number] [facility] [id number] Jan, [facility] [address] [id number] [address] [place] [address], [place] [address] Jan, [facility] [address] [id number] [address] [place] [address], [place] [address] Jan, [facility] [address] [id number] [address] [place] [address], [place] [address] Jan, [facility] [address] [id number] [address] [place] [address], [place] [address] Jan, [facility] [address] [id number] [address] [place] [address], [place] [address] Jan, [facility] [address] [id number] [address] [place] [address], [place] [id number] Jan, [facility] [address] [id number] [address] [place] [address], [place] [address] Jan, [facility] [address] [id number] [address] [place] [address], [place] [id number] Dec, [facility] [address] [id number] [address] [place] [address], [place] [id number] Dec, [facility] [address] [id number] [address] [place] [address], [place] [id number] Dec, [facility] [address] [id number] [address] [place] [address], [place] [id number] Dec, [facility] [address] [id number] [address] [place] [address], [place] [address] Dec, [facility] [address] [id number] [address] [place] [address], [place] [address] Dec, [facility] [address] [id number] [address] [place] [address], [place] [id number] 18 Jan, 2012 [facility] [address] [id number] [address] [place] [address], [place] [id number] 17 Jan, 2012 [facility] [address] [id number] [address] [place] [address], [place] [id number] 16 Jan, 2012 [facility] [address] [id number] [address] [place] [address], [place] [id number] Dec, [facility] [address] [id number] [address] [place] [address], [place] [id number] 13 Jan, 2012 [facility] [address] [id number] [address] [place] [address], [place] [id number] 02 Jan, 2012 [facility] [address] [id number] [address] [place] [address], [place] [address] Dec, [facility] [address] [id number] [address] [place] [address], [place] [address] Dec, [facility] [address] [id number] [address] [place] [address], [place] [id number] Dec, [facility] [address] [id number] [address] [place] [address], [place] [address] Dec, [facility] [address] [id number] [address] [place] [address], [place] [address] Dec, [facility] [address] [id number] [address] [place] [address], [place] [address] Dec, [facility] [address] [id number] [address] [place] [address], [place] [id number] Dec, [facility] [address] [id number] [address] [place] [address], [place] [id number] October, [facility] [address] [id number] [address] [place] [address], [place] [id number] October, [facility] [address] [id number] [address] [place] [address], [place] [address] October, [facility] [address] [id number] [address] [place] [address], [place] [address] October, [facility] [address] [id number] [address] [place] [address], [place] [id number] October, [facility] [address] [id number] [address] [place] [address], [place] [address] October, [facility] [address] [id number] [address] [place] [address], [place] [id number] Oct, [facility] [address] [id number] [address] [place] [address], [place] [id number] Oct, [facility] [address] [id number] [address] [place] [address], [place] [id number] Oct, [facility] [address] [id number] [address] [place] [address], [place] [id number] Oct, [facility] [address] [id number] [address] [place] [address], [place] [address] Oct, [facility] [address] [id number] [address] [place] [address], [place] [id number] Oct, [facility] [address] [id number] [address] [place] [address], [place] [id number] Oct, [facility] [address] [id number] [address] [place] [address], [place] [id number] 29 Sep, 2011 [facility] [address] [id number] [address] [place] [address], [place] [id number] 29 Sep, 2011 [facility] [address] [id number] [address] [place] [address], [place] [id number] 19 Sep, 2011 [facility] [address] [id number] [address] [place] [address], [place] [id number] 13 Sep, 2011 [facility] [address] [id number] [address] [place] [address], [place] [id number] 05 Sep, 2011 [facility] [address] [id number] [address] [place] [address], [place] [address] Aug, [facility] [address] [id number] [address] [place] [address], [place] [id number] Aug, [facility] [address] [id number] [address] [place] [address], [place] [id number] Aug, [facility] [address] [id number] [address] [place] [address], [place] [id number] 08 Aug, 2011 [facility] [address] [id number] [address] [place] [address], [place] [id number] Jul, [facility] [address] [id number] [address] [place] [address], [place] [id number] Jul, [facility] [address] [id number] [address] [place] [address], [place] [id number] Jul, [facility] [address] [id number] [address] [place] [address], [place] [id number] Jul, [facility] [address] [id number] [address] [place] [address], [place] [id number] Jun, [facility] [address] [id number] [address] [place] [address], [place] [id number] Jun, [facility] [address] [id number] [address] [place] [address], [place] [id number] May, [facility] [address] [id number] [address] [place] [address], [place] [id number] May, [facility] [address] [id number] [address] [place] [address], [place] [id number] May, [facility] [address] [id number] [address] [place] [address], [place] [id number] May, [facility] [address] [id number] [address] [place] [address], [place] [id number] 07 May, 2011 [facility] [address] [id number] [address] [address] Apr, [facility] [address] [id number] [address] [place] [id number] Apr, [facility] [address] [id number] [address] [place] [id number] Apr, [facility] [address] [id number] [address] [place] [id number] Jan, [facility] [address] [id number] [address] [place] [id number] Dec, [facility] [address] [id number] [address] [place] [phone] October, [facility] [address] [id number] [address] [place] [id number] Jun, [facility] [address] [id number] [address] [place] [id number] Apr, [facility] [address] [id number] [address] [place] [id number] Apr, [facility] [address] [id number] [address] [place] [id number] Apr, [facility] [address] [id number] [address] [place] [id number] Jun, IMMUNIZATIONS No Known Immunizations SOCIAL HISTORY Never Assessed REASON FOR VISIT intake PLAN OF CARE Activity Details Follow Up prn Reason: VITAL SIGNS MEDICATIONS Medication Instructions Dosage Frequency Start Date End Date Duration S tatus Valium 5 MG Orally Twice a day 1 tablet as needed 12h Active Seroquel 400 mg 2 tablet by Oral rou te 1 time per day at bedtime (Take with 200mg) Jul, Active Gabapentin 800 MG Orally 4 times a day 1 tablet 6h 28 days Active HydrOXYzine HCl 50 mg Orally 3 times a day 1 tablet as needed 8h 30 days Active Adderall 10 mg Orally 3 times a day 1 tablet 8h Active Prazosin HCl 5 MG Orally Once a day 1 capsule at bedtime 24h Active Plus Iron 29-1 MG Orally Once a day 1 tablet 24h 24 r, 2017 90 days Active RESULTS No Results PROCEDURES Procedure Date Ordered Result Body Site [facility] VISIT MENTAL HEALTH ESTAB PT December 22, 2016 Psych diagnostic evaluation, established patient December 22, 2016 INSTRUCTIONS MEDICATIONS ADMINISTERED No Known Medications MEDICAL (GENERAL) HISTORY Type Description Date Medical History Psychiatric disorder Medical History Hard of hearing Surgical History Neofibrous tumor Surgical History back injection Hospitalization History Intestinal blockage Hospitalization History past psychiatric hospitalizations x2
--- OUTSIDE RECORDS SUMMARY | 2020-01-25 13:15 | XMS REPORT ---
Author Author Ana ESCAMILLA KWAME [facility] Address [address] [place] [address] Care Team Providers [facility] Name Role Phone Jackie ESCAMILLAYEN Unavailable PROBLEMS Type Condition ICD9-CM Code DLS53-AI Code Onset Dates Condition S tatus SNOMED Code Problem Attention deficit R41.840 Active 76 803213 Problem Cannabis abuse F12.10 Active 55567 009 Problem Chronic hepatitis C without hepatic coma B18.2 Active 244576578 Problem Attention deficit hyperactivity disorder (ADHD), combi luciano type F90.2 Active 14833715 Problem Bipolar disorder, in partial remission, most rec ent episode hypomanic F31.71 Active 396928010 Problem H/O laminectomy Z98.89 Active 1616 68789 Problem Bipolar 1 disorder F31.9 Active 3 88833373 Problem Anxiety disorder, unspecified type F41.9 Active 985492163 Problem Other chronic pain G89.29 Active 8 5555220 ALLERGIES No Information ENCOUNTERS Encounter Location Date Diagnosis [facility] [address] [facility] [id number] [address] [place] [address] Dec, [facility] [address] [facility] [id number] [address] [place] [address] October, Bipolar disorder, in partial remission, most recent episode hypomanic F31.71 [facility] [address] [facility] [id number] [address] [place] [address] October, [facility] [address] [facility] [id number] [address] [place] [address] October, [facility] [address] [facility] [id number] [address] [place] [address] Oct, Bipolar disorder, in partial remission, most recent episode hypomanic F31.71 ; Attention deficit hyperactivity disorder (ADHD), combined type F90.2 ; Anxiety disorder, unspecified type F41.9 and Encounter for drug screening Z02.83 [facility] [address] [id number] [address] [place] [address] Oct, Bipolar disorder, in partial remission, most recent episode hypomanic F31.71 [facility] [address] [id number] [address] [place] [address] Oct, Bipolar disorder, in partial remission, most recent episode hypomanic F31.71 [facility] [address] [id number] [address] [place] [address] Aug, Bipolar disorder, in partial remission, most recent episode hypomanic F31.71 [facility] [address] [id number] [address] [place] [address] Aug, Bipolar disorder, in partial remission, most recent episode hypomanic F31.71 [facility] [address] [facility] [id number] [address] [place] [address] Aug, Bipolar disorder, in partial remission, most recent episode hypomanic F31.71 [facility] [address] [facility] [id number] [address] [place] [address] Jul, Bipolar disorder, in partial remission, most recent episode hypomanic F31.71 ; Attention deficit hyperactivity disorder (ADHD), combined type F90.2 and Anxiety disorder, unspecified type F41.9 [facility] [address] [facility] [id number] [address] [place] [address] Jul, Bipolar disorder, in partial remission, most recent episode hypomanic F31.71 [facility] [address] [id number] [address] [place] [address] Jun, Bipolar disorder, in partial remission, most recent episode hypomanic F31.71 [facility] [address] [facility] [id number] [address] [place] [address] May, Bipolar disorder, in partial remission, most recent episode hypomanic F31.71 [facility] [address] [facility] [id number] [address] [place] [address] May, Bipolar disorder, in partial remission, most recent episode hypomanic F31.71 [facility] [address] [facility] [id number] [address] [place] [address] Apr, [facility] [address] [facility] [id number] [address] [place] [address] Apr, Bipolar disorder, in partial remission, most recent episode hypomanic F31.71 ; Attention deficit hyperactivity disorder (ADHD), combined type F90.2 ; Anxiety disorder, unspecified type F41.9 and Cannabis abuse F12.10 [facility] [address] [id number] [address] [place] [address] Apr, Attention deficit hyperactiv ity disorder (ADHD), combined type F90.2 [facility] [address] [facility] [id number] [address] [place] [address] Mar, Attention deficit hyperactiv ity disorder (ADHD), combined type F90.2 [facility] [address] [facility] [id number] [address] [place] [address] Mar, Anxiety disorder, unspecifie d type F41.9 [facility] [address] [facility] [id number] [address] [place] [address] Jan, Attention deficit hyperactiv ity disorder (ADHD), combined type F90.2 [facility] [address] [facility] [id number] [address] [place] [address] Jan, Anxiety disorder, unspecifie d type F41.9 [facility] [address] [facility] [id number] [address] [place] [address] Jan, Other chronic pain G89.29 ; Chronic hepatitis C without hepatic coma B18.2 and Bipolar 1 disorder F31.9 [facility] [address] [facility] [id number] [address] [place] [address] Dec, Attention deficit hyperactiv ity disorder (ADHD), combined type F90.2 [facility] [address] [facility] [id number] [address] [place] [address] Dec, Bipolar disorder, in partial remission, most recent episode hypomanic F31.71 ; Attention deficit hyperactivity disorder (ADHD), combined type F90.2 and Anxiety disorder, unspecified type F41.9 [facility] [address] [id number] [address] [place] [address] Dec, Bipolar disorder, in partial remission, most recent episode hypomanic F31.71 ; Attention deficit hyperactivity disorder (ADHD), combined type F90.2 and Anxiety disorder, unspecified type F41.9 [facility] [address] [id number] [address] [place] [address] Dec, Bipolar 1 disorder F31.9 and Attention deficit R41.840 [facility] [address] [facility] [id number] [address] [place] [address] Oct, Other chronic pain G89.29 ; Alopecia L65.9 and Screening, lipid Z13.220 [facility] [address] [facility] [id number] [address] [place] [address] Oct, [facility] [address] [facility] [id number] [address] [place] [address] Aug, [facility] [address] [facility] [id number] [address] [place] [address] Aug, Eustachian tube dysfunction, right H69.81 ; Vertigo R42 and Other chronic pain G89.29 [facility] [address] [facility] [id number] [address] [place] [address] Aug, [facility] [address] [facility] [id number] [address] [place] [address] Jun, [facility] [address] [facility] [id number] [address] [place] [address] Jun, Low back pain M54.5 and Othe r chronic pain G89.29 [facility] [address] [facility] [id number] [address] [place] [address] Jun, [facility] [address] [place] [id number] [address] [place] [address] May, [facility] [address] [place] [id number] [address] [place] [address] Jan, [facility] [address] [facility] [id number] [address] [place] [address] Dec, [facility] [address] [place] [id number] [place] [address] Dec, [facility] [address] [place] [id number] [address] Jun, [facility] [address] [address] Apr, Eustachian tube dysfunction, unspecified laterality H69.80 ; Hot flashes N95.1 and Encounter for immunization Z23 [facility] [address] [address] Jan, [facility] [address] [address] Jan, [facility] [address] [address] Jan, [facility] [address] [id number] [place] [address] Jan, [facility] [address] [place] [id number] [address] [place] [address] Jan, Encounter to establish care V65.8 ; Bipolar 1 disorder 296.7 ; Abdominal pain 789.00 ; Constipation 564.00 ; Hard of hearing 389.9 and Drug abuse 305.90 [facility] [address] [place] [id number] [address] [place] [address] Dec, [facility] [address] [place] [id number] [address] [place] [address] October, [facility] [address] [place] [id number] [address] October, [facility] [address] [id number] [address] [place] [address], [place] [address] 30 Oct, 2014 [facility] [address] [id number] [address] [place] [address], [place] [address] 14 Oct, 2014 [facility] [address] [id number] [address] [place] [address], [place] [address] Oct, [facility] [address] [id number] [address] [place] [address] Aug, [facility] [address] [id number] [address] [place] [address], [place] [address] Aug, [facility] [address] [id number] [address] [place] [address] Aug, [facility] [address] [id number] [address] [place] [address], [place] [address] Aug, [facility] [address] [id number] [address] [place] [address] Aug, [facility] [address] [id number] [address] [place] [address], [place] [address] Aug, [facility] [address] [id number] [address] [place] [address] Aug, [facility] [address] [id number] [address] [place] [address], [place] [address] Aug, 2014 [facility] [address] [id number] [address] [place] [address] Aug, 2014 [facility] [address] [id number] [address] [place] [address] Aug, 2014 [facility] [address] [id number] [address] [place] [address] Aug, 2014 [facility] [address] [id number] [address] [place] [address] Aug, 2014 [facility] [address] [id number] [address] [place] [address], [place] [address] Aug, [facility] [address] [id number] [address] [place] [address], [place] [address] Aug, [facility] [address] [id number] [address] [place] [address], [place] [address] Aug, [facility] [address] [id number] [address] [place] [address], [place] [address] Jul, [facility] [address] [id number] [address] [place] [address], [place] [address] Jul, [facility] [address] [id number] [address] [place] [address], [place] [address] Jul, [facility] [address] [id number] [address] [place] [address], [place] [address] Jul, [facility] [address] [id number] [address] [place] [address], [place] [address] Jul, [facility] [address] [id number] [address] [place] [address], [place] [address] Jul, [facility] [address] [id number] [address] [place] [address], [place] [address] Jul, [facility] [address] [id number] [address] [place] [address], [place] [address] Jul, [facility] [address] [id number] [address] [place] [address], [place] [address] Jun, [facility] [address] [id number] [address] [place] [address], [place] [address] Jun, [facility] [address] [id number] [address] [place] [address], [place] [address] Jun, [facility] [address] [id number] [address] [place] [address], [place] [address] Jun, [facility] [address] [id number] [address] [place] [address] 18 Jun, 2014 [facility] [address] [id number] [address] [place] [address], [place] [address] 15 Jun, 2014 [facility] [address] [id number] [address] [place] [address], [place] [address] 15 Jun, 2014 [facility] [address] [id number] [address] [place] [address], [place] [address] Jun, [facility] [address] [id number] [address] [place] [address], [place] [address] Jun, [facility] [address] [id number] [address] [place] [address], [place] [address] Jun, [facility] [address] [id number] [address] [place] [address], [place] [address] Jun, [facility] [address] [id number] [address] [place] [address], [place] [address] May, [facility] [address] [id number] [address] [place] [address], [place] [address] May, [facility] [address] [id number] [address] [place] [address], [place] [address] May, [facility] [address] [id number] [address] [place] [address], [place] [address] May, [facility] [address] [id number] [address] [place] [address], [place] [address] May, [facility] [address] [id number] [address] [place] [address], [place] [address] May, [facility] [address] [id number] [address] [place] [address], [place] [address] May, [facility] [address] [id number] [address] [place] [address], [place] [address] Apr, [facility] [address] [id number] [address] [place] [address], [place] [address] Apr, [facility] [address] [id number] [facility] [place] [address] Apr, [facility] [address] [id number] [address] [place] [address], [place] [address] Apr, [facility] [address] [id number] [address] [place] [address], [place] [address] Apr, [facility] [address] [id number] [address] [place] [address], [place] [address] Apr, [facility] [address] [id number] [address] [place] [address], [place] [address] Mar, [facility] [address] [id number] [address] [place] [address], [place] [address] Mar, [facility] [address] [id number] [address] [place] [address], [place] [address] Mar, [facility] [address] [id number] [address] [place] [address], [place] [address] Mar, [facility] [address] [id number] [address] [place] [address], [place] [address] Mar, [facility] [address] [id number] [address] [place] [address], [place] [address] Mar, [facility] [address] [id number] [address] [place] [address], [place] [address] Jan, [facility] [address] [id number] [address] [place] [address], [place] [address] Jan, [facility] [address] [id number] [address] [place] [address], [place] [address] Jan, [facility] [address] [id number] [address] [place] [address], [place] [address] Jan, [facility] [address] [id number] [address] [place] [address], [place] [address] Dec, [facility] [address] [id number] [address] [place] [address], [place] [address] Dec, [facility] [address] [id number] [facility] [place] [address] Dec, [facility] [address] [id number] [address] [place] [address], [place] [address] Dec, [facility] [address] [id number] [address] [place] [address], [place] [address] Dec, [facility] [address] [id number] [address] [place] [address], [place] [address] Dec, [facility] [address] [id number] [address] [place] [address], [place] [address] Dec, [facility] [address] [id number] [address] [place] [address], [place] [address] Dec, [facility] [address] [id number] [address] [place] [address], [place] [address] Dec, [facility] [address] [id number] [address] [place] [address], [place] [address] Dec, [facility] [address] [id number] [address] [place] [address], [place] [address] Dec, [facility] [address] [id number] [address] [place] [address], [place] [address] Dec, [facility] [address] [id number] [address] [place] [address], [place] [address] October, [facility] [address] [id number] [address] [place] [address], [place] [address] October, [facility] [address] [id number] [address] [place] [address], [place] [address] October, [facility] [address] [id number] [address] [place] [address], [place] [address] October, [facility] [address] [id number] [address] [place] [address], [place] [address] October, [facility] [address] [id number] [address] [place] [address], [place] [address] October, [facility] [address] [id number] [address] [place] [address], [place] [address] Oct, [facility] [address] [id number] [address] [place] [address], [place] [address] Oct, [facility] [address] [id number] [address] [place] [address], [place] [address] Oct, [facility] [address] [id number] [address] [place] [address], [place] [address] Oct, [facility] [address] [id number] [address] [place] [address], [place] [address] Oct, [facility] [address] [id number] [address] [place] [address], [place] [address] Oct, [facility] [address] [id number] [address] [place] [address], [place] [address] Oct, [facility] [address] [id number] [address] [place] [address], [place] [address] Oct, [facility] [address] [id number] [address] [place] [address], [place] [address] Oct, [facility] [address] [id number] [address] [place] [address], [place] [address] Oct, [facility] [address] [id number] [address] [place] [address], [place] [address] Oct, [facility] [address] [id number] [address] [place] [address], [place] [address] Oct, [facility] [address] [id number] [address] [place] [address], [place] [address] Aug, [facility] [address] [id number] [address] [place] [address], [place] [address] Aug, [facility] [address] [id number] [address] [place] [address], [place] [address] Aug, [facility] [address] [id number] [facility] [place] [address] Aug, [facility] [address] [id number] [address] [place] [address], [place] [address] Aug, [facility] [address] [id number] [address] [place] [address], [place] [address] 05 Aug, 2013 [facility] [address] [id number] [address] [place] [address], [place] [address] Aug, [facility] [address] [id number] [address] [place] [address], [place] [address] Aug, [facility] [address] [id number] [address] [place] [address], [place] [address] Aug, [facility] [address] [id number] [address] [place] [address], [place] [address] 24 Aug, 2013 [facility] [place] [facility] [address] [id number] [address] [place] [address], [place] [address] 24 Aug, 2013 [facility] [address] [id number] [address] [place] [address], [place] [address] Aug, [facility] [place] [facility] [address] [id number] [address] [place] [address], [place] [address] Aug, [facility] [place] [facility] [address] [id number] [address] [place] [address], [place] [address] 20 Aug, 2013 [facility] [place] [facility] [address] [id number] [address] [place] [address], [place] [address] 14 Aug, 2013 [facility] [place] [facility] [address] [id number] [address] [place] [address], [place] [address] 14 Aug, 2013 [facility] [place] [facility] [address] [id number] [address] [place] [address], [place] [address] 14 Aug, 2013 [facility] [place] [facility] [address] [id number] [address] [place] [address], [place] [address] 14 Aug, 2013 [facility] [place] [facility] [address] [id number] [address] [address] 07 Aug, 2013 [facility] [address] [id number] [address] [place] [address], [place] [address] 07 Aug, 2013 [facility] [place] [facility] [address] [id number] [address] [place] [address], [place] [address] 06 Aug, 2013 [facility] [address] [id number] [address] [place] [address], [place] [address] Aug, 2013 [facility] [place] [facility] [address] [id number] [address] [place] [address], [place] [address] Aug, [facility] [address] [id number] [address] [place] [address], [place] [address] Aug, [facility] [address] [id number] [address] [place] [address], [place] [address] Aug, [facility] [address] [id number] [address] [place] [address], [place] [address] Jul, [facility] [address] [id number] [address] [place] [address], [place] [address] Jul, [facility] [address] [id number] [address] [place] [address], [place] [address] Jul, [facility] [address] [id number] [address] [place] [address], [place] [address] Jul, [facility] [place] [facility] [address] [id number] [address] [place] [address], [place] [address] Jul, [facility] [address] [id number] [address] [place] [address], [place] [address] Jul, [facility] [place] [facility] [address] [id number] [address] [place] [address], [place] [address] Jul, [facility] [place] [facility] [address] [id number] [address] [place] [address], [place] [address] Jul, [facility] [place] [facility] [address] [id number] [address] [place] [address], [place] [address] Jul, [facility] [address] [id number] [address] [place] [address], [place] [address] Jul, [facility] [address] [id number] [address] [place] [address], [place] [address] Jul, [facility] [address] [id number] [address] [place] [address], [place] [address] Jul, [facility] [address] [id number] [address] [place] [address], [place] [address] Jul, [facility] [address] [id number] [address] [place] [address], [place] [address] Jul, [facility] [address] [id number] [address] [place] [address], [place] [address] Jul, [facility] [address] [id number] [address] [place] [address], [place] [address] Jul, [facility] [address] [id number] [address] [place] [address], [place] [address] Jul, [facility] [address] [id number] [address] [place] [address], [place] [address] Jul, [facility] [address] [id number] [address] [place] [address], [place] [address] Jul, [facility] [address] [id number] [address] [place] [address], [place] [address] Jul, [facility] [address] [id number] [address] [place] [address], [place] [address] Jun, [facility] [address] [id number] [address] [place] [address], [place] [address] Jun, [facility] [address] [id number] [address] [place] [address], [place] [address] Jun, [facility] [address] [id number] [address] [place] [address], [place] [address] Jun, [facility] [address] [id number] [address] [place] [address], [place] [address] 27 Jun, 2013 [facility] [address] [id number] [address] [place] [address], [place] [address] Jun, [facility] [address] [id number] [address] [place] [address], [place] [address] Jun, [facility] [address] [id number] [address] [place] [address], [place] [address] Jun, [facility] [address] [id number] [address] [place] [address], [place] [address] Jun, [facility] [address] [id number] [address] [place] [address], [place] [address] Jun, [facility] [address] [id number] [address] [place] [address], [place] [address] Jun, [facility] [address] [id number] [address] [place] [address], [place] [address] Jun, [facility] [address] [id number] [address] [place] [address], [place] [address] Jun, [facility] [address] [id number] [address] [place] [address], [place] [address] Jun, [facility] [address] [id number] [address] [place] [address], [place] [address] Jun, [facility] [address] [id number] [address] [place] [address], [place] [address] 18 Jun, 2013 [facility] [address] [id number] [address] [place] [address], [place] [address] 18 Jun, 2013 [facility] [address] [id number] [address] [place] [address], [place] [address] 17 Jun, 2013 [facility] [address] [id number] [address] [place] [address], [place] [address] 17 Jun, 2013 [facility] [address] [id number] [address] [place] [address], [place] [address] 13 Jun, 2013 [facility] [address] [id number] [address] [place] [address], [place] [address] Jun, [facility] [address] [id number] [address] [place] [address], [place] [address] Jun, [facility] [address] [id number] [address] [place] [address], [place] [address] Jun, [facility] [address] [id number] [address] [place] [address], [place] [address] Jun, [facility] [address] [id number] [address] [place] [address], [place] [address] Jun, [facility] [address] [id number] [address] [place] [address], [place] [address] Jun, [facility] [address] [id number] [address] [place] [address], [place] [address] Jun, [facility] [address] [id number] [address] [place] [address], [place] [address] May, [facility] [address] [id number] [address] [place] [address], [place] [address] May, [facility] [address] [id number] [address] [place] [address], [place] [address] May, [facility] [address] [id number] [address] [place] [address], [place] [address] May, [facility] [address] [id number] [address] [place] [address], [place] [address] May, [facility] [address] [id number] [address] [place] [address], [place] [address] May, [facility] [address] [id number] [address] [place] [address], [place] [address] Apr, [facility] [address] [id number] [address] [place] [address], [place] [address] Apr, [facility] [address] [id number] [address] [place] [address], [place] [address] 30 Apr, 2013 [facility] [address] [id number] [address] [place] [address], [place] [address] 30 Apr, 2013 [facility] [address] [id number] [address] [place] [address], [place] [address] Apr, [facility] [address] [id number] [address] [place] [address], [place] [address] 15 Apr, 2013 [facility] [address] [id number] [address] [place] [address], [place] [address] 15 Apr, 2013 [facility] [address] [id number] [address] [place] [address], [place] [address] Apr, [facility] [address] [id number] [address] [place] [address], [place] [address] 26 Mar, 2013 [facility] [address] [id number] [address] [place] [address], [place] [address] 24 Mar, 2013 [facility] [address] [id number] [address] [place] [address], [place] [address] 17 Mar, 2013 [facility] [address] [id number] [address] [place] [address], [place] [address] 17 Mar, 2013 [facility] [address] [id number] [address] [place] [address], [place] [address] 11 Mar, 2013 [facility] [address] [id number] [address] [place] [address], [place] [address] 10 Mar, 2013 [facility] [address] [id number] [address] [place] [address], [place] [address] 05 Mar, 2012 [facility] [address] [id number] [address] [place] [address], [place] [address] 04 Mar, 2013 [facility] [address] [id number] [address] [place] [address], [place] [address] 20 Jan, 2013 [facility] [address] [id number] [address] [place] [address], [place] [address] Jan, [facility] [address] [id number] [address] [place] [address], [place] [address] 14 Jan, 2013 [facility] [address] [id number] [address] [place] [address], [place] [address] 12 Jan, 2013 [facility] [address] [id number] [address] [place] [address], [place] [address] Jan, [facility] [address] [id number] [address] [place] [address], [place] [address] 05 Jan, 2013 [facility] [address] [id number] [address] [place] [address], [place] [address] Dec, [facility] [address] [id number] [address] [place] [address], [place] [address] 24 Dec, 2012 [facility] [address] [id number] [address] [place] [address], [place] [address] Dec, [facility] [address] [id number] [address] [place] [address], [place] [address] Dec, [facility] [address] [id number] [address] [place] [address], [place] [address] 18 Dec, 2012 [facility] [address] [id number] [address] [place] [address], [place] [address] 17 Dec, 2012 [facility] [address] [id number] [address] [place] [address], [place] [address] 16 Dec, 2012 [facility] [address] [id number] [address] [place] [address], [place] [address] 16 Dec, 2012 [facility] [address] [id number] [address] [place] [address], [place] [address] 15 Dec, 2012 [facility] [address] [id number] [address] [place] [address], [place] [address] Dec, [facility] [address] [id number] [address] [place] [address], [place] [address] Dec, [facility] [address] [id number] [address] [place] [address], [place] [address] Dec, [facility] [address] [id number] [address] [place] [address], [place] [address] Dec, [facility] [address] [id number] [address] [place] [address], [place] [address] Dec, [facility] [address] [id number] [address] [place] [address], [place] [address] Dec, [facility] [address] [id number] [address] [place] [address], [place] [address] Dec, [facility] [address] [id number] [address] [place] [address], [place] [address] October, [facility] [address] [id number] [address] [place] [address], [place] [address] October, [facility] [address] [id number] [address] [place] [address], [place] [address] October, [facility] [address] [id number] [address] [place] [address], [place] [address] October, [facility] [address] [id number] [address] [place] [address], [place] [address] October, [facility] [address] [id number] [address] [place] [address], [place] [address] October, [facility] [address] [id number] [address] [place] [address], [place] [address] October, [facility] [address] [id number] [address] [place] [address], [place] [address] Oct, [facility] [address] [id number] [address] [place] [address], [place] [address] Oct, [facility] [address] [id number] [address] [place] [address], [place] [address] Oct, [facility] [address] [id number] [address] [place] [address], [place] [address] Oct, [facility] [address] [id number] [address] [place] [address], [place] [address] 19 Oct, 2012 [facility] [address] [id number] [address] [place] [address], [place] [address] 18 Oct, 2012 [facility] [address] [id number] [address] [place] [address], [place] [address] 17 Oct, 2012 [facility] [address] [id number] [address] [place] [address], [place] [address] 15 Oct, 2012 [facility] [address] [id number] [address] [place] [address], [place] [address] 12 Oct, 2012 [facility] [address] [id number] [address] [place] [address], [place] [address] Oct, [facility] [address] [id number] [address] [place] [address], [place] [address] Oct, [facility] [address] [id number] [address] [place] [address], [place] [address] Oct, [facility] [address] [id number] [address] [place] [address], [place] [address] Aug, [facility] [address] [id number] [address] [place] [address], [place] [address] Aug, [facility] [address] [id number] [address] [place] [address], [place] [address] Aug, [facility] [address] [id number] [address] [place] [address], [place] [address] Aug, [facility] [address] [id number] [address] [place] [address], [place] [address] Aug, [facility] [address] [id number] [address] [place] [address], [place] [address] 05 Aug, 2012 [facility] [address] [id number] [address] [place] [address], [place] [address] 20 Aug, 2012 [facility] [address] [id number] [address] [place] [address], [place] [address] 14 Aug, 2012 [facility] [address] [id number] [address] [place] [address], [place] [address] 12 Aug, 2012 [facility] [address] [id number] [address] [place] [address], [place] [address] Aug, [facility] [address] [id number] [address] [place] [address], [place] [address] 29 Jul, 2012 [facility] [address] [id number] [address] [place] [address], [place] [address] 15 Jul, 2012 [facility] [address] [id number] [address] [place] [address], [place] [address] 08 Jul, 2012 [facility] [address] [id number] [address] [place] [address], [place] [address] 20 Jun, 2012 [facility] [address] [id number] [address] [place] [address], [place] [address] 18 Jun, 2012 [facility] [address] [id number] [address] [place] [address], [place] [address] 18 Jun, 2012 [facility] [address] [id number] [address] [place] [address], [place] [address] 18 Jun, 2012 [facility] [address] [id number] [address] [place] [address], [place] [address] 18 Jun, 2012 [facility] [address] [id number] [address] [place] [address], [place] [address] 14 Jun, 2012 [facility] [address] [id number] [address] [place] [address], [place] [address] 14 Jun, 2012 [facility] [address] [id number] [address] [place] [address], [place] [address] 13 Jun, 2012 [facility] [address] [id number] [address] [place] [address], [place] [address] 13 Jun, 2012 [facility] [address] [id number] [address] [place] [address], [place] [address] 11 Jun, 2012 [facility] [address] [id number] [address] [place] [address], [place] [address] Jun, [facility] [address] [id number] [address] [place] [address], [place] [address] Jun, [facility] [address] [id number] [address] [place] [address], [place] [address] Jun, [facility] [address] [id number] [address] [place] [address], [place] [address] Jun, [facility] [address] [id number] [address] [place] [address], [place] [address] Jun, [facility] [address] [id number] [address] [place] [address], [place] [address] Jun, [facility] [address] [id number] [address] [place] [address], [place] [address] Jun, [facility] [address] [id number] [address] [place] [address], [place] [address] Jun, [facility] [address] [id number] [address] [place] [address], [place] [address] Jun, [facility] [address] [id number] [address] [place] [address], [place] [address] Jun, [facility] [address] [id number] [address] [place] [address], [place] [address] Jun, [facility] [address] [id number] [address] [place] [address], [place] [address] Jun, [facility] [address] [id number] [address] [place] [address], [place] [address] Jun, [facility] [address] [id number] [address] [place] [address], [place] [address] May, [facility] [address] [id number] [address] [place] [address], [place] [address] May, [facility] [address] [id number] [address] [place] [address], [place] [address] May, [facility] [address] [id number] [address] [place] [address], [place] [address] 08 May, 2012 [facility] [address] [id number] [address] [place] [address], [place] [address] May, [facility] [address] [id number] [address] [place] [address], [place] [address] May, [facility] [address] [id number] [address] [place] [address], [place] [address] May, [facility] [address] [id number] [address] [place] [address], [place] [address] May, [facility] [address] [id number] [address] [place] [address], [place] [address] Apr, [facility] [address] [id number] [address] [place] [address], [place] [address] Apr, [facility] [address] [id number] [address] [place] [address], [place] [address] Apr, [facility] [address] [id number] [address] [place] [address], [place] [address] Apr, [facility] [address] [id number] [address] [place] [address], [place] [address] Apr, [facility] [address] [id number] [address] [place] [address], [place] [address] Apr, [facility] [address] [id number] [address] [place] [address], [place] [address] Apr, [facility] [address] [id number] [address] [place] [address], [place] [address] Apr, [facility] [address] [id number] [address] [place] [address], [place] [address] Apr, [facility] [address] [id number] [address] [place] [address], [place] [address] Apr, [facility] [address] [id number] [address] [place] [address], [place] [address] Apr, [facility] [address] [id number] [address] [place] [address], [place] [address] Apr, [facility] [address] [id number] [address] [place] [address], [place] [address] 19 Mar, 2012 [facility] [address] [id number] [address] [place] [address], [place] [address] 18 Mar, 2012 [facility] [address] [id number] [address] [place] [address], [place] [address] Mar, [facility] [address] [id number] [address] [place] [address], [place] [address] Mar, [facility] [address] [id number] [address] [place] [id number] Mar, [facility] [address] [id number] [address] [place] [id number] Mar, [facility] [address] [id number] [address] [place] [address] Mar, [facility] [address] [id number] [address] [place] [address], [place] [address] Jan, [facility] [address] [id number] [address] [place] [id number] Jan, [facility] [address] [id number] [address] [place] [id number] Jan, [facility] [address] [id number] [address] [place] [id number] Jan, [facility] [address] [id number] [address] [place] [address], [place] [address] Jan, [facility] [address] [id number] [address] [place] [address], [place] [address] Jan, [facility] [address] [id number] [address] [place] [id number] Jan, [facility] [address] [id number] [address] [place] [id number] Jan, [facility] [address] [id number] [address] [place] [address], [place] [address] Jan, [facility] [address] [id number] [address] [place] [address], [place] [address] Jan, [facility] [address] [id number] [address] [place] [address], [place] [address] Jan, [facility] [address] [id number] [address] [place] [address], [place] [address] Dec, [facility] [address] [id number] [address] [place] [address], [place] [address] Dec, [facility] [address] [id number] [address] [place] [address], [place] [address] Dec, [facility] [address] [id number] [address] [place] [address], [place] [address] Dec, [facility] [address] [id number] [address] [place] [address], [place] [address] Dec, [facility] [address] [id number] [address] [place] [address], [place] [address] Dec, [facility] [address] [id number] [address] [place] [address], [place] [address] Dec, [facility] [address] [id number] [address] [place] [address], [place] [address] 17 Jan, 2012 [facility] [address] [id number] [address] [place] [address], [place] [address] 16 Jan, 2012 [facility] [address] [id number] [address] [place] [address], [place] [address] Dec, [facility] [address] [id number] [address] [place] [address], [place] [address] Dec, [facility] [address] [id number] [address] [place] [address], [place] [address] Dec, [facility] [address] [id number] [address] [place] [address], [place] [address] 27 Dec, 2011 [facility] [address] [id number] [address] [place] [address], [place] [address] 27 Dec, 2011 [facility] [address] [id number] [address] [place] [address], [place] [address] 25 Dec, 2011 [facility] [address] [id number] [address] [place] [address], [place] [address] 18 Dec, 2011 [facility] [address] [id number] [address] [place] [address], [place] [address] 15 Dec, 2011 [facility] [address] [id number] [address] [place] [address], [place] [address] 06 Dec, 2011 [facility] [address] [id number] [address] [place] [address], [place] [address] 05 Dec, 2011 [facility] [address] [id number] [address] [place] [address], [place] [address] October, [facility] [address] [id number] [address] [place] [address], [place] [address] October, [facility] [address] [id number] [address] [place] [address], [place] [address] October, [facility] [address] [id number] [address] [place] [address], [place] [address] October, [facility] [address] [id number] [address] [place] [address], [place] [address] October, [facility] [address] [id number] [address] [place] [address], [place] [address] October, [facility] [address] [id number] [address] [place] [address], [place] [address] Oct, [facility] [address] [id number] [address] [place] [address], [place] [address] Oct, [facility] [address] [id number] [address] [place] [address], [place] [address] Oct, [facility] [address] [id number] [facility] [place] [address] Oct, [facility] [address] [id number] [address] [place] [address], [place] [address] Oct, [facility] [facility] [address] [id number] [address] [place] [address], [place] [address] Oct, [facility] [address] [id number] [address] [place] [address], [place] [address] Oct, [facility] [address] [id number] [address] [place] [address], [place] [address] Aug, [facility] [address] [id number] [address] [place] [address], [place] [address] 29 Sep, 2011 [facility] [address] [id number] [address] [place] [address], [place] [address] Aug, [facility] [address] [id number] [address] [place] [address], [place] [address] Aug, [facility] [address] [id number] [address] [place] [address], [place] [address] Aug, [facility] [address] [id number] [address] [place] [address], [place] [address] Aug, [facility] [address] [id number] [address] [place] [address], [place] [address] Aug, [facility] [address] [id number] [address] [place] [address], [place] [address] Aug, [facility] [address] [id number] [address] [place] [address], [place] [address] Aug, [facility] [address] [id number] [address] [place] [address], [place] [address] Jul, [facility] [address] [id number] [address] [place] [address], [place] [address] Jul, [facility] [address] [id number] [address] [place] [address], [place] [address] Jul, [facility] [address] [id number] [address] [place] [address], [place] [address] Jul, [facility] [address] [id number] [address] [place] [address], [place] [address] Jun, [facility] [address] [id number] [address] [place] [address], [place] [address] Jun, [facility] [address] [id number] [address] [place] [address], [place] [address] May, [facility] [address] [id number] [address] [place] [address], [place] [address] May, [facility] [address] [id number] [address] [place] [address], [place] [address] May, [facility] [address] [id number] [address] [place] [address], [place] [address] May, [facility] [address] [id number] [address] [place] [address], [place] [address] May, [facility] [address] [id number] [address] [place] [address], [place] [address] Apr, [facility] [address] [id number] [address] [place] [address], [place] [address] Apr, [facility] [address] [id number] [address] [place] [address], [place] [address] Apr, [facility] [address] [id number] [address] [place] [address], [place] [address] 15 Jan, 2011 [facility] [address] [id number] [address] [place] [address], [place] [address] Dec, [facility] [address] [id number] [address] [place] [address], [place] [address] October, [facility] [address] [id number] [address] [place] [address], [place] [address] Jun, [facility] [address] [facility] [id number] [address] [place] [id number] Apr, [facility] [address] [facility] [id number] [address] [place] [phone] Apr, [facility] [address] [facility] [id number] [address] [place] [id number] Apr, [facility] [address] [facility] [id number] [address] [place] [id number] Jun, IMMUNIZATIONS No Known Immunizations SOCIAL HISTORY Never Assessed REASON FOR VISIT adderall 06/15/2017 PLAN OF CARE VITAL SIGNS MEDICATIONS Medication Instructions Dosage Frequency Start Date End Date Duration S wilyus Adderall 10 mg Orally 3 times a day 1 tablet 8h 14 Jun, 2017 28 days Active RESULTS No Results PROCEDURES No Known procedures INSTRUCTIONS MEDICATIONS ADMINISTERED No Known Medications MEDICAL (GENERAL) HISTORY Type Description Date Medical History Psychiatric disorder Medical History Hard of hearing Surgical History Neofibrous tumor Surgical History back injection Hospitalization History Intestinal blockage Hospitalization History past psychiatric hospitalizations x2
--- OUTSIDE RECORDS SUMMARY | 2020-01-25 13:16 | XMS REPORT ---
Author Author Quang ESCAMILLAjeffery SUTHERLANDN [facility] Address [address] [place] [address] Care Team Providers Care Snipper Name Role Phone Jackie ESCAMILLAYEN Unavailable PROBLEMS Type Condition ICD9-CM Code [id number] Code Onset Dates Condition S tatus SNOMED Code Problem Attention deficit R41.840 Active 76 662729 Problem Cannabis abuse F12.10 Active 88902 009 Problem Chronic hepatitis C without hepatic coma B18.2 Active 731693758 Problem Attention deficit hyperactivity disorder (ADHD), combi luciano type F90.2 Active 63743188 Problem Bipolar disorder, in partial remission, most rec ent episode hypomanic F31.71 Active 140601635 Problem H/O laminectomy Z98.89 Active 1616 54689 Problem Bipolar 1 disorder F31.9 Active 3 39132018 Problem Anxiety disorder, unspecified type F41.9 Active 669301955 Problem Other chronic pain G89.29 Active 8 7722762 ALLERGIES Substance Reaction Event Type Date Status Zyprexa Unknown Drug Allergy Dec, Active Amitiza Unknown Non Drug Allergy Dec, Active Hydrocodone Failed UDS (opiates, & THC) Non Drug Allergy Dec, 017 Active Benzodiazepines Failed UDS (opiates, & THC) Non Drug Allergy Dec Active ENCOUNTERS Encounter Location Date Diagnosis [facility] [address] [facility] [id number] [address] [place] [address] Oct, [facility] [address] [facility] [id number] [address] [place] [address] Oct, Bipolar disorder, in partial remission, most recent episode hypomanic F31.71 [facility] [address] [facility] [id number] [address] [place] [address] Aug, Bipolar disorder, in partial remission, most recent episode hypomanic F31.71 [facility] [address] [facility] [id number] [address] [place] [address] 15 Aug, 2017 Bipolar disorder, in partial remission, most recent episode hypomanic F31.71 [facility] [address] [facility] [id number] [address] [place] [address] Aug, Bipolar disorder, in partial remission, most recent episode hypomanic F31.71 [facility] [address] [facility] [id number] [address] [place] [address] Jul, Bipolar disorder, in partial remission, most recent episode hypomanic F31.71 ; Attention deficit hyperactivity disorder (ADHD), combined type F90.2 and Anxiety disorder, unspecified type F41.9 [facility] [address] [facility] [id number] [address] [place] [address] Jul, Bipolar disorder, in partial remission, most recent episode hypomanic F31.71 [facility] [address] [facility] [id number] [address] [place] [address] Jun, Bipolar disorder, in partial remission, most recent episode hypomanic F31.71 [facility] [address] [facility] [id number] [address] [place] [address] May, Bipolar disorder, in partial remission, most recent episode hypomanic F31.71 [facility] [address] [facility] [id number] [address] [place] [address] May, Bipolar disorder, in partial remission, most recent episode hypomanic F31.71 [facility] [address] [facility] [id number] [address] [place] [address] Apr, [facility] [address] [facility] [id number] [address] [place] [address] Apr, Bipolar disorder, in partial remission, most recent episode hypomanic F31.71 ; Attention deficit hyperactivity disorder (ADHD), combined type F90.2 ; Anxiety disorder, unspecified type F41.9 and Cannabis abuse F12.10 [facility] [address] [facility] [id number] [address] [place] [address] Apr, Attention deficit hyperactiv ity disorder (ADHD), combined type F90.2 [facility] [address] [id number] [facility] [place] [address] 21 Mar, 2017 Attention deficit hyperactiv ity disorder (ADHD), combined type F90.2 [facility] [address] [id number] [facility] [place] [address] 14 Mar, 2017 Anxiety disorder, unspecifie d type F41.9 [facility] [address] [id number] [facility] [place] [address] Jan, Attention deficit hyperactiv ity disorder (ADHD), combined type F90.2 [facility] [address] [id number] [address] [place] [address] Jan, Anxiety disorder, unspecifie d type F41.9 [facility] [address] [id number] [address] [place] [address] Jan, Other chronic pain G89.29 ; Chronic hepatitis C without hepatic coma B18.2 and Bipolar 1 disorder F31.9 [facility] [address] [id number] [address] [place] [address], [place] [address] Dec, Attention deficit hyperactiv ity disorder (ADHD), combined type F90.2 [facility] [address] [id number] [address] [place] [address], [place] [address] Dec, Bipolar disorder, in partial remission, most recent episode hypomanic F31.71 ; Attention deficit hyperactivity disorder (ADHD), combined type F90.2 and Anxiety disorder, unspecified type F41.9 [facility] [address] [id number] [address] [place] [address], [place] [address] 28 Dec, 2016 Bipolar disorder, in partial remission, most recent episode hypomanic F31.71 ; Attention deficit hyperactivity disorder (ADHD), combined type F90.2 and Anxiety disorder, unspecified type F41.9 [facility] [address] [id number] [facility] [place] [address] Dec, Bipolar 1 disorder F31.9 and Attention deficit R41.840 [facility] [address] [id number] [address] [place] [address] Oct, Other chronic pain G89.29 ; Alopecia L65.9 and Screening, lipid Z13.220 [facility] [address] [id number] [address] [place] [address] Oct, [facility] [address] [id number] [address] [place] [address] Aug, [facility] [address] [id number] [address] [place] [address] Aug, Eustachian tube dysfunction, right H69.81 ; Vertigo R42 and Other chronic pain G89.29 [facility] [address] [id number] [address] [place] [address] Aug, [facility] [address] [id number] [address] [place] [address] Jun, [facility] [address] [id number] [address] [place] [address] Jun, Low back pain M54.5 and Othe r chronic pain G89.29 [facility] [address] [id number] [address] [place] [address] Jun, [facility] [address] [id number] [address] [place] [address] May, [facility] [address] [id number] [address] [place] [address] Jan, [facility] [address] [id number] [address] [place] [address] Dec, [facility] [address] [id number] [address] [place] [address] Dec, [facility] [address] [id number] [address] [place] [address] Jun, [facility] [address] [id number] [address] [place] [address] Apr, Eustachian tube dysfunction, unspecified laterality H69.80 ; Hot flashes N95.1 and Encounter for immunization Z23 [facility] [address] [facility] [id number] [address] [place] [address] Jan, [facility] [address] [facility] [id number] [address] [place] [address] Jan, [facility] [address] [facility] [id number] [address] [place] [address] Jan, [facility] [address] [facility] [id number] [address] [place] [address] Jan, [facility] [address] [place] [id number] [address] [place] [address] Jan, Encounter to establish care V65.8 ; Bipolar 1 disorder 296.7 ; Abdominal pain 789.00 ; Constipation 564.00 ; Hard of hearing 389.9 and Drug abuse 305.90 [facility] [address] [facility] [id number] [address] [place] [address] Dec, [facility] [address] [facility] [id number] [address] [place] [address] October, [facility] [address] [facility] [id number] [address] [place] [address] October, [facility] [address] [facility] [id number] [address] [place] [address] Oct, [facility] [address] [facility] [id number] [address] [place] [address] Oct, [facility] [address] [facility] [id number] [address] [place] [address] Oct, [facility] [address] [facility] [id number] [address] [place] [address] Aug, [facility] [address] [facility] [id number] [address] [place] [address] Aug, [facility] [address] [id number] [address] [place] [address], [place] [address] Aug, [facility] [address] [id number] [address] [place] [address], [place] [address] Aug, 2014 [facility] [address] [id number] [address] [place] [address], [place] [address] Aug, 2014 [facility] [address] [id number] [address] [place] [address], [place] [address] Aug, 2014 [facility] [address] [id number] [address] [place] [address], [place] [address] Aug, 2014 [facility] [address] [id number] [address] [place] [address], [place] [address] Aug, 2014 [facility] [address] [id number] [address] [place] [address], [place] [address] Aug, 2014 [facility] [address] [id number] [address] [place] [address] Aug, 2014 [facility] [address] [id number] [address] [place] [address], [place] [address] Aug, 2014 [facility] [address] [id number] [address] [place] [address] Aug, 2014 [facility] [address] [id number] [address] [place] [address] Aug, 2014 [facility] [address] [id number] [address] [place] [address] Aug, 2014 [facility] [address] [id number] [address] [place] [address], [place] [address] Aug, [facility] [address] [id number] [address] [place] [address] Jul, [facility] [address] [id number] [address] [place] [address] Jul, [facility] [address] [id number] [address] [place] [address], [place] [address] Jul, [facility] [address] [id number] [address] [place] [address], [place] [address] Jul, [facility] [address] [id number] [address] [place] [address], [place] [address] Jul, [facility] [address] [id number] [address] [place] [address], [place] [address] Jul, [facility] [address] [id number] [address] [place] [address], [place] [address] Jul, [facility] [address] [id number] [address] [place] [address], [place] [address] Jul, [facility] [address] [id number] [address] [place] [address], [place] [address] Jun, [facility] [address] [id number] [address] [place] [address], [place] [address] Jun, [facility] [address] [id number] [address] [place] [address], [place] [address] Jun, [facility] [address] [id number] [address] [place] [address], [place] [address] Jun, [facility] [address] [id number] [address] [place] [address], [place] [address] Jun, [facility] [address] [id number] [address] [place] [address], [place] [address] Jun, [facility] [address] [id number] [address] [place] [address], [place] [address] Jun, [facility] [address] [id number] [address] [place] [address], [place] [address] Jun, [facility] [address] [id number] [address] [place] [address], [place] [address] Jun, [facility] [address] [id number] [address] [place] [address], [place] [address] Jun, [facility] [address] [id number] [address] [place] [address], [place] [address] Jun, [facility] [address] [id number] [address] [place] [address], [place] [address] May, [facility] [address] [id number] [address] [place] [address], [place] [address] May, [facility] [address] [id number] [address] [place] [address], [place] [address] May, [facility] [address] [id number] [address] [place] [address], [place] [address] May, [facility] [address] [id number] [address] [place] [address], [place] [address] May, [facility] [address] [id number] [address] [place] [address], [place] [address] May, [facility] [address] [id number] [address] [place] [address], [place] [address] May, [facility] [address] [id number] [address] [place] [address], [place] [address] Apr, [facility] [address] [id number] [address] [place] [address], [place] [address] Apr, [facility] [address] [id number] [address] [place] [address], [place] [address] Apr, [facility] [address] [id number] [address] [place] [address], [place] [address] Apr, [facility] [address] [id number] [address] [place] [address], [place] [address] Apr, [facility] [address] [id number] [address] [place] [address], [place] [address] Apr, [facility] [address] [id number] [address] [place] [address], [place] [address] Mar, [facility] [address] [id number] [address] [place] [address], [place] [address] Mar, [facility] [address] [id number] [address] [place] [address], [place] [address] Mar, [facility] [address] [id number] [address] [place] [address], [place] [address] Mar, [facility] [address] [id number] [address] [place] [address], [place] [address] Mar, [facility] [address] [id number] [address] [place] [address], [place] [address] Mar, [facility] [address] [id number] [address] [place] [address], [place] [address] Jan, [facility] [address] [id number] [address] [place] [address], [place] [address] Jan, [facility] [address] [id number] [address] [place] [address], [place] [address] Jan, [facility] [address] [id number] [address] [place] [address], [place] [address] Jan, [facility] [address] [id number] [address] [place] [address], [place] [address] Dec, [facility] [address] [id number] [address] [place] [address], [place] [address] Dec, [facility] [address] [id number] [address] [place] [address], [place] [address] Dec, [facility] [address] [id number] [address] [place] [address], [place] [address] Dec, [facility] [address] [id number] [address] [place] [address], [place] [address] Dec, [facility] [address] [id number] [address] [place] [address], [place] [address] Dec, [facility] [address] [id number] [address] [place] [address], [place] [address] Dec, [facility] [address] [id number] [facility] [place] [address] Dec, [facility] [address] [id number] [facility] [place] [address] Dec, [facility] [address] [id number] [address] [place] [address], [place] [address] Dec, [facility] [address] [id number] [address] [place] [address], [place] [address] Dec, [facility] [address] [id number] [address] [place] [address], [place] [address] Dec, [facility] [address] [id number] [address] [place] [address], [place] [address] October, [facility] [address] [id number] [address] [place] [address], [place] [address] October, [facility] [address] [id number] [address] [place] [address], [place] [address] October, [facility] [address] [id number] [address] [place] [address], [place] [address] October, [facility] [address] [id number] [address] [place] [address], [place] [address] October, [facility] [address] [id number] [address] [place] [address], [place] [address] October, [facility] [address] [id number] [address] [place] [address], [place] [address] Oct, [facility] [address] [id number] [address] [place] [address], [place] [address] Oct, [facility] [address] [id number] [address] [place] [address], [place] [address] Oct, [facility] [address] [id number] [address] [place] [address], [place] [address] Oct, [facility] [address] [id number] [address] [place] [address], [place] [address] Oct, [facility] [address] [id number] [facility] [place] [address] Oct, [facility] [address] [id number] [facility] [place] [address] Oct, [facility] [address] [id number] [facility] [place] [address] Oct, [facility] [address] [id number] [address] [place] [address], [place] [address] Oct, [facility] [address] [id number] [address] [place] [address], [place] [address] Oct, [facility] [address] [id number] [address] [place] [address], [place] [address] Oct, [facility] [address] [id number] [address] [place] [address], [place] [address] Oct, [facility] [address] [id number] [address] [place] [address], [place] [address] Aug, [facility] [address] [id number] [address] [place] [address], [place] [address] Aug, [facility] [address] [id number] [address] [place] [address], [place] [address] Aug, [facility] [address] [id number] [address] [place] [address], [place] [address] Aug, [facility] [address] [id number] [address] [place] [address], [place] [address] 05 Aug, 2013 [facility] [address] [id number] [address] [place] [address], [place] [address] 05 Aug, 2013 [facility] [address] [id number] [address] [place] [address], [place] [address] 04 Aug, 2013 [facility] [address] [id number] [address] [place] [address], [place] [address] 03 Aug, 2013 [facility] [address] [id number] [address] [place] [address], [place] [address] Aug, [facility] [address] [id number] [address] [place] [address], [place] [address] Aug, [facility] [address] [id number] [address] [place] [address], [place] [address] 24 Aug, 2013 [facility] [address] [id number] [address] [place] [address], [place] [address] Aug, 2013 [facility] [address] [id number] [address] [place] [address], [place] [address] Aug, [facility] [address] [id number] [address] [place] [address], [place] [address] 20 Aug, 2013 [facility] [address] [id number] [address] [place] [address], [place] [address] 14 Aug, 2013 [facility] [address] [id number] [address] [place] [address], [place] [address] 14 Aug, 2013 [facility] [address] [id number] [address] [place] [address], [place] [address] 14 Aug, 2013 [facility] [address] [id number] [address] [place] [address], [place] [address] 14 Aug, 2013 [facility] [address] [id number] [address] [place] [address], [place] [address] 07 Aug, 2013 [facility] [address] [id number] [address] [place] [address], [place] [address] 07 Aug, 2013 [facility] [address] [id number] [address] [place] [address], [place] [address] 06 Aug, 2013 [facility] [address] [id number] [address] [place] [address], [place] [address] 06 Aug, 2013 [facility] [address] [id number] [address] [place] [address], [place] [address] 04 Aug, 2013 [facility] [address] [id number] [address] [place] [address], [place] [address] Aug, [facility] [address] [id number] [address] [place] [address], [place] [address] Aug, [facility] [address] [id number] [address] [place] [address], [place] [address] Jul, [facility] [address] [id number] [address] [place] [address], [place] [address] Jul, [facility] [address] [id number] [address] [place] [address], [place] [address] Jul, [facility] [address] [id number] [address] [place] [address], [place] [address] Jul, [facility] [address] [id number] [address] [place] [address], [place] [address] Jul, [facility] [address] [id number] [address] [place] [address], [place] [address] Jul, [facility] [address] [id number] [address] [place] [address], [place] [address] Jul, [facility] [address] [id number] [address] [place] [address], [place] [address] Jul, [facility] [address] [id number] [address] [place] [address], [place] [address] Jul, [facility] [address] [id number] [address] [place] [address], [place] [address] Jul, [facility] [address] [id number] [address] [place] [address], [place] [address] Jul, [facility] [address] [id number] [address] [place] [address], [place] [address] Jul, [facility] [address] [id number] [address] [place] [address], [place] [address] Jul, [facility] [address] [id number] [address] [place] [address], [place] [address] Jul, [facility] [address] [id number] [address] [place] [address], [place] [address] 07 Jul, 2013 [facility] [address] [id number] [address] [place] [address], [place] [address] Jul, [facility] [address] [id number] [address] [place] [address], [place] [address] Jul, [facility] [address] [id number] [address] [place] [address], [place] [address] Jul, [facility] [address] [id number] [address] [place] [address], [place] [address] Jul, [facility] [address] [id number] [address] [place] [address], [place] [address] Jul, [facility] [address] [id number] [address] [place] [address], [place] [address] Jun, [facility] [address] [id number] [address] [place] [address], [place] [address] Jun, [facility] [address] [id number] [address] [place] [address], [place] [address] Jun, [facility] [address] [id number] [address] [place] [address], [place] [address] Jun, [facility] [address] [id number] [address] [place] [address], [place] [address] Jun, [facility] [address] [id number] [address] [place] [address], [place] [address] Jun, [facility] [address] [id number] [address] [place] [address], [place] [address] Jun, [facility] [address] [id number] [address] [place] [address], [place] [address] Jun, [facility] [address] [id number] [address] [place] [address], [place] [address] 24 Jun, 2013 [facility] [address] [id number] [address] [place] [address], [place] [address] Jun, [facility] [address] [id number] [address] [place] [address], [place] [address] Jun, [facility] [address] [id number] [address] [place] [address], [place] [address] Jun, [facility] [address] [id number] [address] [place] [address], [place] [address] Jun, [facility] [address] [id number] [address] [place] [address], [place] [address] Jun, [facility] [address] [id number] [address] [place] [address], [place] [address] Jun, [facility] [address] [id number] [address] [place] [address], [place] [address] Jun, [facility] [address] [id number] [address] [place] [address], [place] [address] Jun, [facility] [address] [id number] [address] [place] [address], [place] [address] Jun, [facility] [address] [id number] [address] [place] [address], [place] [address] 17 Jun, 2013 [facility] [address] [id number] [address] [place] [address], [place] [address] Jun, [facility] [address] [id number] [address] [place] [address], [place] [address] Jun, [facility] [address] [id number] [address] [place] [address], [place] [address] 12 Jun, 2013 [facility] [address] [id number] [address] [place] [address], [place] [address] 09 Jun, 2013 [facility] [address] [id number] [address] [place] [address], [place] [address] 05 Jun, 2013 [facility] [address] [id number] [address] [place] [address], [place] [address] 05 Jun, 2013 [facility] [address] [id number] [address] [place] [address] [place] [address] Jun, [facility] [address] [id number] [address] [place] [address], [place] [address] Jun, [facility] [address] [id number] [address] [place] [address] May, [facility] [address] [id number] [address] [place] [address], [place] [address] May, [facility] [address] [id number] [address] [place] [address], [place] [address] May, [facility] [address] [id number] [address] [place] [address], [place] [address] May, [facility] [address] [id number] [address] [place] [address], [place] [address] May, [facility] [address] [id number] [address] [place] [address] May, [facility] [address] [id number] [address] [place] [address] Apr, [facility] [address] [id number] [address] [place] [address], [place] [address] Apr, [facility] [address] [id number] [address] [place] [address] Apr, [facility] [address] [id number] [address] [place] [address], [place] [address] 30 Apr, 2013 [facility] [address] [id number] [address] [place] [address] Apr, [facility] [address] [id number] [address] [place] [address] Apr, [facility] [address] [id number] [address] [place] [address] Apr, [facility] [address] [id number] [address] [place] [address] Apr, [facility] [address] [id number] [facility] [address] 26 Mar, 2012 [facility] [address] [id number] [address] [place] [address], [place] [address] 24 Mar, 2012 [facility] [address] [id number] [address] [place] [address], [place] [address] 17 Mar, 2012 [facility] [address] [id number] [address] [place] [address], [place] [address] 17 Mar, 2012 [facility] [address] [id number] [address] [place] [address], [place] [address] 11 Mar, 2012 [facility] [address] [id number] [address] [place] [address], [place] [address] 10 Mar, 2012 [facility] [address] [id number] [address] [place] [address], [place] [address] 05 Mar, 2012 [facility] [address] [id number] [address] [place] [address], [place] [address] 04 Mar, 2012 [facility] [address] [id number] [address] [place] [address], [place] [address] 20 Jan, 2013 [facility] [address] [id number] [address] [place] [address], [place] [address] 19 Jan, 2013 [facility] [address] [id number] [address] [place] [address], [place] [address] 14 Jan, 2013 [facility] [address] [id number] [address] [place] [address], [place] [address] Jan, [facility] [address] [id number] [address] [place] [address], [place] [address] Jan, [facility] [address] [id number] [address] [place] [address], [place] [address] 05 Jan, 2013 [facility] [address] [id number] [address] [place] [address], [place] [address] Dec, [facility] [address] [id number] [address] [place] [address], [place] [address] 24 Dec, 2012 [facility] [address] [id number] [facility] [place] [address] 22 Dec, 2012 [facility] [address] [id number] [address] [place] [address], [place] [address] 19 Dec, 2012 [facility] [address] [id number] [address] [place] [address], [place] [address] 18 Dec, 2012 [facility] [address] [id number] [address] [place] [address], [place] [address] 17 Dec, 2012 [facility] [address] [id number] [address] [place] [address], [place] [address] 16 Dec, 2012 [facility] [address] [id number] [address] [place] [address], [place] [address] 16 Dec, 2012 [facility] [address] [id number] [address] [place] [address], [place] [address] 15 Dec, 2012 [facility] [address] [id number] [address] [place] [address], [place] [address] Dec, [facility] [address] [id number] [address] [place] [address], [place] [address] 28 Dec, 2012 [facility] [address] [id number] [address] [place] [address], [place] [address] Dec, [facility] [address] [id number] [address] [place] [address], [place] [address] Dec, [facility] [address] [id number] [address] [place] [address], [place] [address] 17 Dec, 2012 [facility] [address] [id number] [address] [place] [address], [place] [address] Dec, [facility] [address] [id number] [address] [place] [address], [place] [address] Dec, [facility] [address] [id number] [address] [place] [address], [place] [address] October, [facility] [address] [id number] [address] [place] [address], [place] [address] October, [facility] [address] [id number] [address] [place] [address], [place] [address] October, [facility] [address] [id number] [address] [place] [address], [place] [address] October, [facility] [address] [id number] [address] [place] [address], [place] [address] October, [facility] [address] [id number] [address] [place] [address], [place] [address] October, [facility] [address] [id number] [address] [place] [address], [place] [address] October, [facility] [address] [id number] [address] [place] [address], [place] [address] Oct, [facility] [address] [id number] [address] [place] [address], [place] [address] Oct, [facility] [address] [id number] [address] [place] [address], [place] [address] 24 Oct, 2012 [facility] [address] [id number] [address] [place] [address], [place] [address] Oct, [facility] [address] [id number] [address] [place] [address], [place] [address] Oct, [facility] [address] [id number] [address] [place] [address], [place] [address] 18 Oct, 2012 [facility] [address] [id number] [address] [place] [address], [place] [address] 17 Oct, 2012 [facility] [address] [id number] [address] [place] [address], [place] [address] 15 Oct, 2012 [facility] [address] [id number] [address] [place] [address], [place] [address] 12 Oct, 2012 [facility] [address] [id number] [address] [place] [address], [place] [address] Oct, [facility] [address] [id number] [address] [place] [address], [place] [address] Oct, [facility] [address] [id number] [address] [place] [address], [place] [address] Oct, [facility] [address] [id number] [address] [place] [address], [place] [address] Aug, [facility] [address] [id number] [address] [place] [address], [place] [address] Aug, [facility] [address] [id number] [address] [place] [address], [place] [address] Aug, [facility] [address] [id number] [address] [place] [address], [place] [address] Aug, [facility] [address] [id number] [address] [place] [address], [place] [address] Aug, [facility] [address] [id number] [address] [place] [address], [place] [address] Aug, [facility] [address] [id number] [address] [place] [address], [place] [address] Aug, [facility] [address] [id number] [address] [place] [address], [place] [address] Aug, [facility] [address] [id number] [address] [place] [address], [place] [address] Aug, [facility] [address] [id number] [address] [place] [address], [place] [address] Aug, [facility] [address] [id number] [address] [place] [address], [place] [address] Jul, [facility] [address] [id number] [address] [place] [address], [place] [address] Jul, [facility] [address] [id number] [address] [place] [address], [place] [address] Jul, [facility] [address] [id number] [address] [place] [address] [place] [address] 20 Jun, 2012 [facility] [address] [id number] [address] [place] [address], [place] [address] 18 Jun, 2012 [facility] [address] [id number] [address] [place] [address], [place] [address] 18 Jun, 2012 [facility] [address] [id number] [address] [place] [address], [place] [address] 18 Jun, 2012 [facility] [address] [id number] [address] [place] [address], [place] [address] 18 Jun, 2012 [facility] [address] [id number] [address] [place] [address], [place] [address] 14 Jun, 2012 [facility] [address] [id number] [address] [place] [address], [place] [address] 14 Jun, 2012 [facility] [address] [id number] [address] [place] [address], [place] [address] 13 Jun, 2012 [facility] [address] [id number] [address] [place] [address], [place] [address] 13 Jun, 2012 [facility] [address] [id number] [address] [place] [address], [place] [address] 11 Jun, 2012 [facility] [address] [id number] [address] [place] [address], [place] [address] 11 Jun, 2012 [facility] [address] [id number] [address] [place] [address], [place] [address] 11 Jun, 2012 [facility] [address] [id number] [address] [place] [address], [place] [address] 11 Jun, 2012 [facility] [address] [id number] [address] [place] [address], [place] [address] 07 Jun, 2012 [facility] [address] [id number] [address] [place] [address], [place] [address] 07 Jun, 2012 [facility] [address] [id number] [address] [place] [address], [place] [address] 06 Jun, 2012 [facility] [address] [id number] [address] [place] [address], [place] [address] Jun, [facility] [address] [id number] [address] [place] [address], [place] [address] Jun, [facility] [address] [id number] [address] [place] [address], [place] [address] Jun, [facility] [address] [id number] [address] [place] [address], [place] [address] Jun, [facility] [address] [id number] [address] [place] [address], [place] [address] Jun, [facility] [address] [id number] [address] [place] [address], [place] [address] Jun, [facility] [address] [id number] [address] [place] [address], [place] [address] Jun, [facility] [address] [id number] [address] [place] [address], [place] [address] May, [facility] [address] [id number] [address] [place] [address], [place] [address] May, [facility] [address] [id number] [address] [place] [address], [place] [address] May, [facility] [address] [id number] [address] [place] [address], [place] [address] May, [facility] [address] [id number] [address] [place] [address], [place] [address] May, [facility] [address] [id number] [address] [place] [address], [place] [address] May, [facility] [address] [id number] [address] [place] [address], [place] [address] May, [facility] [address] [id number] [address] [place] [address], [place] [address] May, [facility] [address] [id number] [address] [place] [address], [place] [address] Apr, [facility] [address] [id number] [address] [place] [address], [place] [address] 30 Apr, 2012 [facility] [address] [id number] [address] [place] [address], [place] [address] 29 Apr, 2012 [facility] [address] [id number] [address] [place] [address], [place] [address] Apr, [facility] [address] [id number] [address] [place] [address], [place] [address] Apr, [facility] [address] [id number] [address] [place] [address], [place] [address] Apr, [facility] [address] [id number] [address] [place] [address], [place] [address] Apr, [facility] [address] [id number] [address] [place] [address], [place] [address] Apr, [facility] [address] [id number] [address] [place] [id number] Apr, [facility] [address] [id number] [address] [place] [address], [place] [address] 08 Apr, 2012 [facility] [address] [id number] [address] [place] [id number] 04 Apr, 2012 [facility] [address] [id number] [address] [place] [id number] 02 Apr, 2012 [facility] [address] [id number] [address] [place] [id number] 19 Mar, 2012 [facility] [address] [id number] [address] [place] [address], [place] [address] 18 Sep2011 [facility] [address] [id number] [address] [place] [id number] 12 Mar, 2012 [facility] [address] [id number] [address] [place] [address], [place] [address] 12 Mar, 2011 [facility] [address] [id number] [address] [place] [address], [place] [id number] Mar, [facility] [address] [id number] [address] [place] [address], [place] [id number] Mar, [facility] [address] [id number] [address] [place] [address], [place] [address] Mar, [facility] [address] [id number] [address] [place] [address], [place] [address] Jan, [facility] [address] [id number] [address] [place] [address], [place] [address] Jan, [facility] [address] [id number] [address] [place] [address], [place] [id number] Jan, [facility] [address] [id number] [address] [place] [address], [place] [id number] Jan, [facility] [address] [id number] [address] [place] [address], [place] [address] Jan, [facility] [address] [id number] [address] [place] [address], [place] [address] Jan, [facility] [address] [id number] [address] [place] [address], [place] [address] Jan, [facility] [address] [id number] [address] [place] [address], [place] [address] Jan, [facility] [address] [id number] [address] [place] [address], [place] [address] Jan, [facility] [address] [id number] [address] [place] [address], [place] [address] Jan, [facility] [address] [id number] [address] [place] [address], [place] [address] Jan, [facility] [address] [id number] [address] [place] [address], [place] [address] Dec, [facility] [address] [id number] [address] [place] [address], [place] [address] Dec, [facility] [address] [id number] [facility] [place] [address] 26 Dec, 2011 [facility] [address] [id number] [address] [place] [address], [place] [address] 26 Jan, 2012 [facility] [address] [id number] [address] [place] [address], [place] [address] 20 Dec, 2011 [facility] [address] [id number] [address] [place] [address], [place] [address] 19 Jan, 2012 [facility] [address] [id number] [address] [place] [address], [place] [address] 18 Jan, 2012 [facility] [address] [id number] [address] [place] [address], [place] [address] 17 Jan, 2012 [facility] [address] [id number] [address] [place] [address], [place] [address] 16 Jan, 2012 [facility] [address] [id number] [address] [place] [address], [place] [address] 13 Jan, 2012 [facility] [address] [id number] [address] [place] [address], [place] [address] 13 Jan, 2012 [facility] [address] [id number] [address] [place] [address], [place] [address] 02 Jan, 2012 [facility] [address] [id number] [address] [place] [address], [place] [address] 27 Dec, 2011 [facility] [address] [id number] [address] [place] [address], [place] [address] 27 Dec, 2011 [facility] [address] [id number] [address] [place] [address], [place] [address] 25 Dec, 2011 [facility] [address] [id number] [address] [place] [address], [place] [address] 18 Dec, 2011 [facility] [address] [id number] [address] [place] [address], [place] [address] 15 Dec, 2011 [facility] [address] [id number] [address] [place] [address], [place] [address] Dec, [facility] [address] [id number] [address] [place] [address], [place] [address] Dec, [facility] [address] [id number] [address] [place] [address], [place] [address] October, [facility] [address] [id number] [address] [place] [address], [place] [address] October, [facility] [address] [id number] [address] [place] [address], [place] [address] October, [facility] [address] [id number] [address] [place] [address], [place] [address] October, [facility] [address] [id number] [address] [place] [address], [place] [address] October, [facility] [address] [id number] [address] [place] [address], [place] [address] October, [facility] [address] [id number] [address] [place] [address], [place] [address] Oct, [facility] [address] [id number] [address] [place] [address], [place] [address] Oct, [facility] [address] [id number] [address] [place] [address], [place] [address] Oct, [facility] [address] [id number] [address] [place] [address], [place] [address] Oct, [facility] [address] [id number] [address] [place] [address], [place] [address] Oct, [facility] [address] [id number] [address] [place] [address], [place] [address] Oct, [facility] [address] [id number] [address] [place] [address], [place] [address] Oct, [facility] [address] [id number] [address] [place] [address], [place] [address] Aug, [facility] [address] [id number] [address] [place] [address], [place] [address] 29 Sep, 2011 [facility] [address] [id number] [address] [place] [address], [place] [address] 19 Sep, 2011 [facility] [address] [id number] [address] [place] [address], [place] [address] 13 Sep, 2011 [facility] [address] [id number] [address] [place] [address], [place] [address] 05 Sep, 2011 [facility] [address] [id number] [address] [place] [address], [place] [address] 05 Sep, 2011 [facility] [address] [id number] [address] [place] [address], [place] [address] 27 Aug, 2011 [facility] [address] [id number] [address] [place] [address], [place] [address] 20 Aug, 2011 [facility] [address] [id number] [address] [place] [address], [place] [address] 08 Aug, 2011 [facility] [address] [id number] [address] [place] [address], [place] [address] Jul, [facility] [address] [id number] [address] [place] [address], [place] [address] Jul, [facility] [address] [id number] [address] [place] [address], [place] [address] Jul, [facility] [address] [id number] [address] [place] [address], [place] [address] Jul, [facility] [address] [id number] [address] [place] [address], [place] [address] Jun, [facility] [address] [id number] [address] [place] [address], [place] [address] Jun, [facility] [address] [id number] [address] [place] [address], [place] [address] May, [facility] [address] [id number] [address] [place] [address], [place] [address] May, [facility] [address] [id number] [address] [place] [address] May, [facility] [address] [id number] [address] [place] [address] May, [facility] [address] [id number] [address] [place] [address] May, [facility] [address] [id number] [address] [place] [address] Apr, [facility] [address] [id number] [address] [place] [address] Apr, [facility] [address] [id number] [address] [place] [address] Apr, [facility] [address] [id number] [address] [place] [address] Jan, [facility] [address] [id number] [address] [place] [address] Dec, [facility] [address] [id number] [address] [place] [address] October, [facility] [address] [id number] [address] [place] [address] Jun, [facility] [address] [id number] [address] [place] [address] Apr, [facility] [address] [id number] [address] [place] [address] Apr, [facility] [address] [id number] [address] [place] [address] Apr, [facility] [address] [id number] [address] [place] [address] Jun, IMMUNIZATIONS No Known Immunizations SOCIAL HISTORY Never Assessed REASON FOR VISIT SUN rain/jackie - Carolyn RYAN, Needs signed stimulant contract and still needs to obtain labs as requested by provider. PLAN OF CARE Activity Details Follow Up 3 Months Reason: f/u VITAL SIGNS Height 69 in 2017-01-23 Weight 203.0 lbs 2017-01-23 Heart Rate 104 bpm 2017-01-23 Respiratory Rate 18 2017-01-23 BMI 29.97 kg/m2 2017-01-23 Blood pressure systolic 150 mmHg 2017-01-23 Blood pressure diastolic 96 mmHg 2017-01-23 MEDICATIONS Medication Instructions Dosage Frequency Start Date End Date Duration S tatus HydrOXYzine HCl 50 mg Orally 3 times a day 1 tablet as needed 8h 30 days Active Valium 5 mg Orally Twice a day 1 tablet as needed 12h 30 days Active Gabapentin 800 MG Orally 4 times a day 1 tablet 6h 28 days Active Prazosin HCl 5 mg Orally Once a day 1 capsule at bedtime 24h 30 days Active Seroquel 400 mg Orally Once a day 2 tablet by Oral rou te 1 time per day at bedtime 24h 30 days Active Adderall 10 mg Orally 3 times a day 1 tablet 8h 30 days Active Plus Iron 29-1 MG Orally Once a day 1 tablet 24h 24 Ap r, 2017 90 days Active RESULTS No Results PROCEDURES Procedure Date Ordered Result Body Site [facility] VISIT ESTABLISHED PATIENT January 23, 2017 INSTRUCTIONS MEDICATIONS ADMINISTERED No Known Medications MEDICAL (GENERAL) HISTORY Type Description Date Medical History Psychiatric disorder Medical History Hard of hearing Surgical History Neofibrous tumor Surgical History back injection Hospitalization History Intestinal blockage Hospitalization History past psychiatric hospitalizations x2
--- OUTSIDE RECORDS SUMMARY | 2020-01-25 13:16 | XMS REPORT ---
Author Author Ana ESCAMILLA [facility] Address [address] [place] [address] Care Team Providers Care Cruise Staff Member Name Role Phone FRANCINE, KWAME Unavailable PROBLEMS Type Condition ICD9-CM Code [id number] Code Onset Dates Condition S tatus SNOMED Code Problem Attention deficit R41.840 Active 76 022304 Problem Cannabis abuse F12.10 Active 40402 009 Problem Chronic hepatitis C without hepatic coma B18.2 Active 750111802 Problem Attention deficit hyperactivity disorder (ADHD), combi luciano type F90.2 Active 39197613 Problem Bipolar disorder, in partial remission, most rec ent episode hypomanic F31.71 Active 795741314 Problem H/O laminectomy Z98.89 Active 1616 68181 Problem Bipolar 1 disorder F31.9 Active 3 82025769 Problem Anxiety disorder, unspecified type F41.9 Active 128634552 Problem Other chronic pain G89.29 Active 8 [id number] ALLERGIES No Information ENCOUNTERS Encounter Location Date Diagnosis [facility] [address] [id number] [address] [place] [address] Dec, [facility] [address] [id number] [address] [place] [address] Dec, Bipolar disorder, in partial remission, most recent episode hypomanic F31.71 [facility] [address] [id number] [address] [place] [address] October, Bipolar disorder, in partial remission, most recent episode hypomanic F31.71 [facility] [address] [id number] [address] [place] [address] October, [facility] [address] [id number] [address] [place] [address] October, [facility] [address] [id number] [address] [place] [address] Oct, Bipolar disorder, in partial remission, most recent episode hypomanic F31.71 ; Attention deficit hyperactivity disorder (ADHD), combined type F90.2 ; Anxiety disorder, unspecified type F41.9 and Encounter for drug screening Z02.83 [facility] [address] [id number] [address] [place] [address] Oct, Bipolar disorder, in partial remission, most recent episode hypomanic F31.71 [facility] [address] [id number] [address] [place] [address] Oct, Bipolar disorder, in partial remission, most recent episode hypomanic F31.71 [facility] [address] [id number] [address] [place] [address] Aug, Bipolar disorder, in partial remission, most recent episode hypomanic F31.71 [facility] [address] [id number] [address] [place] [address] Aug, Bipolar disorder, in partial remission, most recent episode hypomanic F31.71 [facility] [address] [id number] [address] [place] [address] Aug, Bipolar disorder, in partial remission, most recent episode hypomanic F31.71 [facility] [address] [id number] [address] [place] [address] Jul, Bipolar disorder, in partial remission, most recent episode hypomanic F31.71 ; Attention deficit hyperactivity disorder (ADHD), combined type F90.2 and Anxiety disorder, unspecified type F41.9 [facility] [address] [id number] [address] [place] [address] Jul, Bipolar disorder, in partial remission, most recent episode hypomanic F31.71 [facility] [address] [id number] [address] [place] [address] Jun, Bipolar disorder, in partial remission, most recent episode hypomanic F31.71 [facility] [address] [id number] [address] [place] [address] May, Bipolar disorder, in partial remission, most recent episode hypomanic F31.71 [facility] [address] [id number] [address] [place] [address] May, Bipolar disorder, in partial remission, most recent episode hypomanic F31.71 [facility] [address] [id number] [address] [place] [address] Apr, [facility] [address] [id number] [address] [place] [address] Apr, Bipolar disorder, in partial remission, most recent episode hypomanic F31.71 ; Attention deficit hyperactivity disorder (ADHD), combined type F90.2 ; Anxiety disorder, unspecified type F41.9 and Cannabis abuse F12.10 [facility] [address] [id number] [address] [place] [address] Apr, Attention deficit hyperactiv ity disorder (ADHD), combined type F90.2 [facility] [address] [id number] [address] [place] [address] Mar, Attention deficit hyperactiv ity disorder (ADHD), combined type F90.2 [facility] [address] [id number] [address] [place] [address] Mar, Anxiety disorder, unspecifie d type F41.9 [facility] [address] [id number] [address] [place] [address] Jan, Attention deficit hyperactiv ity disorder (ADHD), combined type F90.2 [facility] [address] [id number] [address] [place] [address] Jan, Anxiety disorder, unspecifie d type F41.9 [facility] [address] [id number] [address] [place] [address] Jan, Other chronic pain G89.29 ; Chronic hepatitis C without hepatic coma B18.2 and Bipolar 1 disorder F31.9 [facility] [address] [id number] [address] [place] [address] Dec, Attention deficit hyperactiv ity disorder (ADHD), combined type F90.2 [facility] [address] [id number] [address] [place] [address] Dec, Bipolar disorder, in partial remission, most recent episode hypomanic F31.71 ; Attention deficit hyperactivity disorder (ADHD), combined type F90.2 and Anxiety disorder, unspecified type F41.9 [facility] [address] [id number] [address] [place] [address] Dec, Bipolar disorder, in partial remission, most recent episode hypomanic F31.71 ; Attention deficit hyperactivity disorder (ADHD), combined type F90.2 and Anxiety disorder, unspecified type F41.9 [facility] [address] [id number] [address] [place] [address] Dec, Bipolar 1 disorder F31.9 and Attention deficit R41.840 [facility] [id number] [place] [id number] [address] [place] [address] Oct, Other chronic pain G89.29 ; Alopecia L65.9 and Screening, lipid Z13.220 [place] [address] [place] [place] [id number] [address] [place] [address] Oct, [facility] [address] [id number] [address] [place] [address] Aug, [facility] [address] [place] [place] [id number] [address] [place] [address] Aug, Eustachian tube dysfunction, right H69.81 ; Vertigo R42 and Other chronic pain G89.29 [facility] [address] [id number] [address] [place] [address] Aug, [facility] [address] [place] [place] [id number] [address] [place] [address] Jun, [facility] [address] [id number] [address] [place] [address] Jun, Low back pain M54.5 and Othe r chronic pain G89.29 [facility] [address] [id number] [address] [place] [address] Jun, [facility] [address] [id number] [address] [place] [address] May, [facility] [address] [id number] [address] [place] [address] Jan, [facility] [address] [id number] [address] [place] [address] Dec, [facility] [address] [id number] [address] [place] [address] Dec, [facility] [address] [place] [id number] [address] [place] [address] Jun, [facility] [address] [place] [id number] [address] [place] [address] Apr, Eustachian tube dysfunction, unspecified laterality H69.80 ; Hot flashes N95.1 and Encounter for immunization Z23 [facility] [address] [id number] [address] [place] [address] Jan, [facility] [address] [place] [id number] [address] [place] [address] Jan, [facility] [address] [id number] [address] [place] [address] Jan, [facility] [address] [id number] [address] [place] [address] Jan, [facility] [address] [id number] [address] [place] [address] Jan, Encounter to establish care V65.8 ; Bipolar 1 disorder 296.7 ; Abdominal pain 789.00 ; Constipation 564.00 ; Hard of hearing 389.9 and Drug abuse 305.90 [facility] [address] [id number] [address] [place] [address] Dec, [facility] [address] [id number] [address] [place] [address], [place] [address] October, [facility] [address] [id number] [address] [place] [address], [place] [address] October, [facility] [address] [id number] [address] [place] [address], [place] [address] Oct, [facility] [address] [id number] [address] [place] [address], [place] [address] Oct, [facility] [address] [id number] [address] [place] [address], [place] [address] Oct, [facility] [address] [id number] [address] [place] [address], [place] [address] Aug, [facility] [address] [id number] [address] [place] [address], [place] [address] Aug, [facility] [address] [id number] [address] [place] [address], [place] [address] Aug, [facility] [address] [id number] [address] [place] [address], [place] [address] Aug, [facility] [address] [id number] [address] [place] [address], [place] [address] Aug, [facility] [address] [id number] [address] [place] [address], [place] [address] Aug, [facility] [address] [id number] [address] [place] [address] Aug, [facility] [address] [id number] [address] [place] [address], [place] [address] Aug, [facility] [address] [id number] [address] [place] [address], [place] [address] Aug, [facility] [address] [id number] [address] [place] [address], [place] [address] Aug, [facility] [address] [id number] [address] [place] [address] Aug, [facility] [address] [id number] [address] [place] [address], [place] [address] Aug, [facility] [address] [id number] [address] [place] [address], [place] [address] Aug, [facility] [address] [id number] [address] [place] [address], [place] [address] Aug, [facility] [address] [id number] [address] [place] [address], [place] [address] Aug, [facility] [address] [id number] [address] [place] [address], [place] [address] Jul, [facility] [address] [id number] [address] [place] [address], [place] [address] Jul, [facility] [address] [id number] [address] [place] [address], [place] [address] Jul, [facility] [address] [id number] [address] [place] [address], [place] [address] Jul, [facility] [address] [id number] [address] [place] [address], [place] [address] Jul, [facility] [address] [id number] [address] [place] [address], [place] [address] Jul, [facility] [address] [id number] [address] [place] [address], [place] [address] Jul, [facility] [address] [id number] [address] [place] [address], [place] [address] Jul, [facility] [address] [id number] [address] [place] [address], [place] [address] Jun, [facility] [address] [id number] [address] [place] [address], [place] [address] Jun, [facility] [address] [id number] [address] [place] [address], [place] [address] Jun, [facility] [address] [id number] [address] [place] [address], [place] [address] Jun, [facility] [address] [id number] [address] [place] [address], [place] [address] Jun, [facility] [address] [id number] [address] [place] [address], [place] [address] Jun, [facility] [address] [id number] [address] [place] [address], [place] [address] Jun, [facility] [address] [id number] [address] [place] [address], [place] [address] Jun, [facility] [address] [id number] [address] [place] [address], [place] [address] Jun, [facility] [address] [id number] [address] [place] [address], [place] [address] Jun, [facility] [address] [id number] [address] [place] [address], [place] [address] Jun, [facility] [address] [id number] [address] [place] [address], [place] [address] May, [facility] [address] [id number] [address] [place] [address], [place] [address] May, [facility] [address] [id number] [address] [place] [address], [place] [address] May, [facility] [address] [id number] [address] [place] [address], [place] [address] May, [facility] [address] [id number] [address] [place] [address], [place] [address] May, [facility] [address] [id number] [address] [place] [address], [place] [address] May, [facility] [address] [id number] [address] [place] [address], [place] [address] May, [facility] [address] [id number] [address] [place] [address], [place] [address] Apr, [facility] [address] [id number] [address] [place] [address], [place] [address] Apr, [facility] [address] [id number] [address] [place] [address], [place] [address] Apr, [facility] [address] [id number] [address] [place] [address], [place] [address] Apr, [facility] [address] [id number] [address] [place] [address], [place] [address] Apr, [facility] [address] [id number] [address] [place] [address], [place] [address] Apr, [facility] [address] [id number] [address] [place] [address], [place] [address] Mar, [facility] [address] [id number] [address] [place] [address], [place] [address] Mar, [facility] [address] [id number] [address] [place] [address], [place] [address] Mar, [facility] [address] [id number] [address] [place] [address], [place] [address] Mar, [facility] [address] [id number] [address] [place] [address], [place] [address] Mar, [facility] [address] [id number] [address] [place] [address], [place] [address] Mar, [facility] [address] [id number] [address] [place] [address], [place] [address] Jan, [facility] [address] [id number] [address] [place] [address], [place] [address] Jan, [facility] [address] [id number] [address] [place] [address], [place] [address] Jan, [facility] [address] [id number] [address] [place] [address], [place] [address] Jan, [facility] [address] [id number] [facility] [place] [address] Dec, [facility] [address] [id number] [address] [place] [address], [place] [address] Dec, [facility] [address] [id number] [address] [place] [address], [place] [address] Dec, [facility] [address] [id number] [address] [place] [address], [place] [address] Dec, [facility] [address] [id number] [address] [place] [address], [place] [address] Dec, [facility] [address] [id number] [address] [place] [address], [place] [address] Dec, [facility] [address] [id number] [address] [place] [address], [place] [address] Dec, [facility] [address] [id number] [address] [place] [address], [place] [address] Dec, [facility] [address] [id number] [address] [place] [address], [place] [address] Dec, [facility] [address] [id number] [address] [place] [address], [place] [address] Dec, [facility] [address] [id number] [address] [place] [address], [place] [address] Dec, [facility] [address] [id number] [address] [place] [address], [place] [address] Dec, [facility] [address] [id number] [address] [place] [address], [place] [address] October, [facility] [address] [id number] [address] [place] [address], [place] [address] October, [facility] [address] [id number] [address] [place] [address], [place] [address] October, [facility] [address] [id number] [address] [place] [address], [place] [address] October, [facility] [address] [id number] [address] [place] [address], [place] [address] October, [facility] [address] [id number] [address] [place] [address], [place] [address] October, [facility] [address] [id number] [address] [place] [address], [place] [address] Oct, [facility] [address] [id number] [address] [place] [address], [place] [address] Oct, [facility] [address] [id number] [address] [place] [address], [place] [address] Oct, [facility] [address] [id number] [address] [place] [address], [place] [address] Oct, [facility] [address] [id number] [address] [place] [address], [place] [address] Oct, [facility] [address] [id number] [address] [place] [address], [place] [address] Oct, [facility] [address] [id number] [address] [place] [address], [place] [address] Oct, [facility] [address] [id number] [address] [place] [address], [place] [address] Oct, [facility] [address] [id number] [address] [place] [address], [place] [address] Oct, [facility] [address] [id number] [address] [place] [address], [place] [address] Oct, [facility] [address] [id number] [address] [place] [address], [place] [address] Oct, [facility] [address] [id number] [address] [place] [address], [place] [address] Oct, [facility] [address] [id number] [address] [place] [address], [place] [address] Aug, [facility] [address] [id number] [address] [place] [address], [place] [address] 15 Aug, 2013 [facility] [address] [id number] [address] [place] [address], [place] [address] 11 Aug, 2013 [facility] [address] [id number] [address] [place] [address], [place] [address] 11 Aug, 2013 [facility] [address] [id number] [address] [place] [address], [place] [address] 05 Aug, 2013 [facility] [address] [id number] [address] [place] [address], [place] [address] 05 Aug, 2013 [facility] [address] [id number] [address] [place] [address], [place] [address] 04 Aug, 2013 [facility] [address] [id number] [address] [place] [address], [place] [address] Aug, [facility] [address] [id number] [address] [place] [address], [place] [address] Aug, [facility] [address] [id number] [address] [place] [address], [place] [address] 24 Aug, 2013 [facility] [address] [id number] [address] [place] [address], [place] [address] 24 Aug, 2013 [facility] [address] [id number] [address] [place] [address], [place] [address] Aug, [facility] [address] [id number] [address] [place] [address], [place] [address] Aug, [facility] [address] [id number] [address] [place] [address], [place] [address] 20 Aug, 2013 [facility] [address] [id number] [address] [place] [address], [place] [address] 14 Aug, 2013 [facility] [address] [id number] [address] [place] [address], [place] [address] 14 Aug, 2013 [facility] [address] [id number] [address] [place] [address], [place] [address] 14 Aug, 2013 [facility] [address] [id number] [facility] [place] [address] 14 Aug, 2013 [facility] [address] [id number] [address] [place] [address], [place] [address] 07 Aug, 2013 [facility] [address] [id number] [address] [place] [address], [place] [address] 07 Aug, 2013 [facility] [address] [id number] [address] [place] [address], [place] [address] Aug, [facility] [address] [id number] [address] [place] [address], [place] [address] Aug, [facility] [address] [id number] [address] [place] [address], [place] [address] Aug, [facility] [address] [id number] [address] [place] [address], [place] [address] Aug, [facility] [address] [id number] [address] [place] [address], [place] [address] Aug, [facility] [address] [id number] [address] [place] [address], [place] [address] Jul, [facility] [address] [id number] [address] [place] [address], [place] [address] Jul, [facility] [address] [id number] [address] [place] [address], [place] [address] Jul, [facility] [address] [id number] [address] [place] [address], [place] [address] Jul, [facility] [address] [id number] [address] [place] [address], [place] [address] Jul, [facility] [address] [id number] [address] [place] [address], [place] [address] Jul, [facility] [address] [id number] [address] [place] [address], [place] [address] Jul, [facility] [address] [id number] [address] [place] [address], [place] [address] Jul, [facility] [address] [id number] [address] [place] [address], [place] [address] Jul, [facility] [address] [id number] [address] [place] [address], [place] [address] Jul, [facility] [address] [id number] [address] [place] [address], [place] [address] Jul, [facility] [address] [id number] [address] [place] [address], [place] [address] Jul, [facility] [address] [id number] [address] [place] [address], [place] [address] Jul, [facility] [address] [id number] [address] [place] [address], [place] [address] Jul, [facility] [address] [id number] [address] [place] [address], [place] [address] Jul, [facility] [address] [id number] [address] [place] [address], [place] [address] Jul, [facility] [address] [id number] [address] [place] [address], [place] [address] Jul, [facility] [address] [id number] [address] [place] [address], [place] [address] Jul, [facility] [address] [id number] [address] [place] [address], [place] [address] Jul, [facility] [address] [id number] [address] [place] [address], [place] [address] Jul, [facility] [address] [id number] [address] [place] [address], [place] [address] Jun, [facility] [address] [id number] [address] [place] [address], [place] [address] Jun, [facility] [address] [id number] [address] [place] [address], [place] [address] Jun, [facility] [address] [id number] [address] [place] [address], [place] [address] Jun, [facility] [address] [id number] [address] [place] [address], [place] [address] Jun, [facility] [address] [id number] [address] [place] [address], [place] [address] Jun, [facility] [address] [id number] [address] [place] [address], [place] [address] Jun, [facility] [address] [id number] [address] [place] [address], [place] [address] Jun, [facility] [address] [id number] [address] [place] [address], [place] [address] Jun, [facility] [address] [id number] [address] [place] [address], [place] [address] Jun, [facility] [address] [id number] [address] [place] [address], [place] [address] Jun, [facility] [address] [id number] [address] [place] [address], [place] [address] Jun, [facility] [address] [id number] [address] [place] [address], [place] [address] Jun, [facility] [address] [id number] [address] [place] [address], [place] [address] Jun, [facility] [address] [id number] [address] [place] [address], [place] [address] Jun, [facility] [address] [id number] [address] [place] [address], [place] [address] Jun, [facility] [address] [id number] [address] [place] [address], [place] [address] Jun, [facility] [address] [id number] [address] [place] [address], [place] [address] 17 Jun, 2013 [facility] [address] [id number] [address] [place] [address] 17 Jun, 2013 [facility] [address] [id number] [address] [place] [address], [place] [address] 13 Jun, 2013 [facility] [address] [id number] [address] [place] [address] Jun, [facility] [address] [id number] [address] [place] [address], [place] [address] Jun, [facility] [address] [id number] [address] [place] [address], [place] [address] Jun, [facility] [address] [id number] [address] [place] [address], [place] [address] Jun, [facility] [address] [id number] [address] [place] [address], [place] [address] Jun, [facility] [address] [id number] [address] [place] [address] Jun, [facility] [address] [id number] [address] [place] [address], [place] [address] Jun, [facility] [address] [id number] [address] [place] [address] May, [facility] [address] [id number] [address] [place] [address] May, [facility] [address] [id number] [address] [place] [address] May, [facility] [address] [id number] [address] [place] [address] May, [facility] [address] [id number] [address] [place] [address] May, [facility] [address] [id number] [address] [place] [address] May, [facility] [address] [id number] [address] [place] [address] Apr, [facility] [address] [id number] [address] [place] [address], [place] [address] 30 Apr, 2012 [facility] [address] [id number] [address] [place] [address], [place] [address] 30 Apr, 2012 [facility] [address] [id number] [address] [place] [address], [place] [address] 30 Apr, 2012 [facility] [address] [id number] [address] [place] [address], [place] [address] Apr, [facility] [address] [id number] [address] [place] [address], [place] [address] 15 Apr, 2013 [facility] [address] [id number] [address] [place] [address], [place] [address] 15 Apr, 2013 [facility] [address] [id number] [address] [place] [address], [place] [address] Apr, [facility] [address] [id number] [address] [place] [address], [place] [address] 26 Mar, 2012 [facility] [address] [id number] [address] [place] [address], [place] [address] 24 Mar, 2012 [facility] [address] [id number] [address] [place] [address], [place] [address] 17 Mar, 2012 [facility] [address] [id number] [address] [place] [address], [place] [address] 17 Mar, 2012 [facility] [address] [id number] [address] [place] [address], [place] [address] 11 Mar, 2012 [facility] [address] [id number] [address] [place] [address], [place] [address] 10 Mar, 2012 [facility] [address] [id number] [address] [place] [address], [place] [address] 05 Sep, 2012 [facility] [address] [id number] [address] [place] [address], [place] [address] 04 Mar, 2012 [facility] [address] [id number] [address] [place] [address], [place] [address] Jan, [facility] [address] [id number] [address] [place] [address], [place] [address] Jan, [facility] [address] [id number] [address] [place] [address], [place] [address] Jan, [facility] [address] [id number] [address] [place] [address], [place] [address] Jan, [facility] [address] [id number] [address] [place] [address], [place] [address] Jan, [facility] [address] [id number] [address] [place] [address], [place] [address] Jan, [facility] [address] [id number] [address] [place] [address], [place] [address] Dec, [facility] [address] [id number] [address] [place] [address], [place] [address] Dec, [facility] [address] [id number] [address] [place] [address], [place] [address] Dec, [facility] [address] [id number] [address] [place] [address], [place] [address] Dec, [facility] [address] [id number] [address] [place] [address], [place] [address] Dec, [facility] [address] [id number] [address] [place] [address], [place] [address] 17 Dec, 2012 [facility] [address] [id number] [address] [place] [address], [place] [address] 16 Dec, 2012 [facility] [address] [id number] [address] [place] [address], [place] [address] 16 Dec, 2012 [facility] [address] [id number] [address] [place] [address], [place] [address] 15 Dec, 2012 [facility] [address] [id number] [address] [place] [address], [place] [address] 10 Dec, 2012 [facility] [address] [id number] [address] [place] [address], [place] [address] Dec, [facility] [address] [id number] [address] [place] [address], [place] [address] Dec, [facility] [address] [id number] [address] [place] [address], [place] [address] Dec, [facility] [address] [id number] [address] [place] [address], [place] [address] Dec, [facility] [address] [id number] [address] [place] [address], [place] [address] Dec, [facility] [address] [id number] [address] [place] [address], [place] [address] Dec, [facility] [address] [id number] [address] [place] [address], [place] [address] October, [facility] [address] [id number] [address] [place] [address], [place] [address] October, [facility] [address] [id number] [address] [place] [address], [place] [address] October, [facility] [address] [id number] [address] [place] [address], [place] [address] October, [facility] [address] [id number] [address] [place] [address], [place] [address] October, [facility] [address] [id number] [address] [place] [address], [place] [address] October, [facility] [address] [id number] [address] [place] [address], [place] [address] October, [facility] [address] [id number] [address] [place] [address], [place] [address] Oct, [facility] [address] [id number] [address] [place] [address], [place] [address] Oct, [facility] [address] [id number] [address] [place] [address], [place] [address] Oct, [facility] [address] [id number] [address] [place] [address], [place] [address] Oct, [facility] [address] [id number] [address] [place] [address], [place] [address] Oct, [facility] [address] [id number] [address] [place] [address], [place] [address] 18 Oct, 2012 [facility] [address] [id number] [address] [place] [address], [place] [address] 17 Oct, 2012 [facility] [address] [id number] [address] [place] [address], [place] [address] 15 Oct, 2012 [facility] [address] [id number] [address] [place] [address], [place] [address] Oct, [facility] [address] [id number] [address] [place] [address], [place] [address] Oct, [facility] [address] [id number] [address] [place] [address], [place] [address] Oct, [facility] [address] [id number] [address] [place] [address], [place] [address] Oct, [facility] [address] [id number] [address] [place] [address], [place] [address] Aug, [facility] [address] [id number] [address] [place] [address], [place] [address] Aug, [facility] [address] [id number] [address] [place] [address], [place] [address] Aug, [facility] [address] [id number] [address] [place] [address], [place] [address] Aug, [facility] [address] [id number] [address] [place] [address], [place] [address] 05 Aug, 2012 [facility] [address] [id number] [address] [place] [address], [place] [address] 05 Aug, 2012 [facility] [address] [id number] [address] [place] [address], [place] [address] 20 Aug, 2012 [facility] [address] [id number] [address] [place] [address], [place] [address] 14 Aug, 2012 [facility] [address] [id number] [address] [place] [address], [place] [address] 12 Aug, 2012 [facility] [address] [id number] [address] [place] [address], [place] [address] 11 Aug, 2012 [facility] [address] [id number] [address] [place] [address], [place] [address] 29 Jul, 2012 [facility] [address] [id number] [address] [place] [address], [place] [address] 15 Jul, 2012 [facility] [address] [id number] [address] [place] [address], [place] [address] 08 Jul, 2012 [facility] [address] [id number] [address] [place] [address], [place] [address] 20 Jun, 2012 [facility] [address] [id number] [address] [place] [address], [place] [address] 18 Jun, 2012 [facility] [address] [id number] [address] [place] [address], [place] [address] 18 Jun, 2012 [facility] [address] [id number] [address] [place] [address], [place] [address] 18 Jun, 2012 [facility] [address] [id number] [address] [place] [address], [place] [address] 18 Jun, 2012 [facility] [address] [id number] [address] [place] [address], [place] [address] 14 Jun, 2012 [facility] [address] [id number] [address] [place] [address], [place] [address] 14 Jun, 2012 [facility] [address] [id number] [address] [place] [address], [place] [address] 13 Jun, 2012 [facility] [address] [id number] [address] [place] [address], [place] [address] 13 Jun, 2012 [facility] [address] [id number] [address] [place] [address], [place] [address] Jun, [facility] [address] [id number] [address] [place] [address], [place] [address] Jun, [facility] [address] [id number] [address] [place] [address], [place] [address] Jun, [facility] [address] [id number] [address] [place] [address], [place] [address] Jun, [facility] [address] [id number] [address] [place] [address], [place] [address] Jun, [facility] [address] [id number] [address] [place] [address], [place] [address] Jun, [facility] [address] [id number] [address] [place] [address], [place] [address] Jun, [facility] [address] [id number] [address] [place] [address], [place] [address] Jun, [facility] [address] [id number] [address] [place] [address], [place] [address] Jun, [facility] [address] [id number] [address] [place] [address], [place] [address] Jun, [facility] [address] [id number] [address] [place] [address], [place] [address] Jun, [facility] [address] [id number] [address] [place] [address], [place] [address] Jun, [facility] [address] [id number] [address] [place] [address], [place] [address] Jun, [facility] [address] [id number] [address] [place] [address], [place] [address] Jun, [facility] [address] [id number] [address] [place] [address], [place] [address] May, [facility] [address] [id number] [address] [place] [address] [address] May, [facility] [address] [id number] [address] [place] [address], [place] [address] May, [facility] [address] [id number] [address] [place] [address], [place] [address] May, [facility] [address] [id number] [address] [place] [address], [place] [address] May, [facility] [address] [id number] [address] [place] [address], [place] [address] May, [facility] [address] [id number] [address] [place] [address], [place] [address] May, [facility] [address] [id number] [address] [place] [address], [place] [address] May, [facility] [address] [id number] [address] [place] [address], [place] [address] Apr, [facility] [address] [id number] [address] [place] [address] Apr, [facility] [address] [id number] [address] [place] [address], [place] [address] Apr, [facility] [address] [id number] [address] [place] [address] Apr, [facility] [address] [id number] [address] [place] [address] Apr, [facility] [address] [id number] [address] [place] [address] Apr, [facility] [address] [id number] [address] [place] [address] Apr, [facility] [address] [id number] [address] [place] [address] Apr, [facility] [address] [id number] [address] [place] [address] Apr, [facility] [address] [id number] [address] [place] [address], [place] [address] 08 Apr, 2012 [facility] [address] [id number] [address] [place] [address], [place] [address] 04 Apr, 2012 [facility] [address] [id number] [address] [place] [address], [place] [address] 02 Apr, 2012 [facility] [address] [id number] [address] [place] [address], [place] [address] 19 Mar, 2012 [facility] [address] [id number] [address] [place] [address], [place] [address] 18 Mar, 2012 [facility] [address] [id number] [address] [place] [address], [place] [address] 12 Mar, 2012 [facility] [address] [id number] [address] [place] [address], [place] [address] Mar, [facility] [address] [id number] [address] [place] [id number] Mar, [facility] [address] [id number] [address] [place] [id number] Mar, [facility] [address] [id number] [address] [place] [address], [place] [address] 04 Mar, 2012 [facility] [address] [id number] [address] [place] [address], [place] [address] Jan, [facility] [address] [id number] [address] [place] [address], [place] [address] Jan, [facility] [address] [id number] [address] [place] [id number] Jan, [facility] [address] [id number] [address] [place] [id number] Jan, [facility] [address] [id number] [address] [place] [address], [place] [address] Jan, [facility] [address] [id number] [address] [place] [id number] 16 Feb, 2012 [facility] [address] [id number] [facility] [place] [address] 16 Feb, 2012 [facility] [address] [id number] [facility] [place] [address] 14 Feb, 2012 [facility] [address] [id number] [facility] [place] [address] Jan, [facility] [address] [id number] [address] [place] [address], [place] [address] Jan, [facility] [address] [id number] [address] [place] [address], [place] [address] Jan, [facility] [address] [id number] [address] [place] [address], [place] [address] Dec, [facility] [address] [id number] [address] [place] [address], [place] [address] Dec, [facility] [address] [id number] [address] [place] [address], [place] [address] Dec, [facility] [address] [id number] [address] [place] [address], [place] [address] Dec, [facility] [address] [id number] [address] [place] [address], [place] [address] Dec, [facility] [address] [id number] [address] [place] [address], [place] [address] Dec, [facility] [address] [id number] [address] [place] [address], [place] [address] 18 Jan, 2012 [facility] [address] [id number] [address] [place] [address], [place] [address] 17 Jan, 2012 [facility] [address] [id number] [address] [place] [address], [place] [address] 16 Jan, 2012 [facility] [address] [id number] [address] [place] [address], [place] [address] 13 Jan, 2012 [facility] [address] [id number] [address] [place] [address], [place] [address] Dec, [facility] [address] [id number] [address] [place] [address], [place] [address] Dec, [facility] [address] [id number] [address] [place] [address], [place] [address] Dec, [facility] [address] [id number] [address] [place] [address], [place] [address] Dec, [facility] [address] [id number] [address] [place] [address], [place] [address] Dec, [facility] [address] [id number] [address] [place] [address], [place] [address] Dec, [facility] [address] [id number] [address] [place] [address], [place] [address] 15 Dec, 2011 [facility] [address] [id number] [address] [place] [address], [place] [address] Dec, [facility] [address] [id number] [address] [place] [address], [place] [address] Dec, [facility] [address] [id number] [address] [place] [address], [place] [address] October, [facility] [address] [id number] [address] [place] [address], [place] [address] October, [facility] [address] [id number] [address] [place] [address], [place] [address] October, [facility] [address] [id number] [address] [place] [address], [place] [address] October, [facility] [address] [id number] [address] [place] [address], [place] [address] October, [facility] [address] [id number] [address] [place] [address], [place] [address] October, [facility] [address] [id number] [address] [place] [address], [place] [address] Oct, [facility] [address] [id number] [address] [place] [address], [place] [address] 24 Oct, 2011 [facility] [address] [id number] [address] [place] [address], [place] [address] Oct, [facility] [address] [id number] [address] [place] [address], [place] [address] Oct, [facility] [address] [id number] [address] [place] [address], [place] [address] 04 Oct, 2011 [facility] [address] [id number] [address] [place] [address], [place] [address] Oct, [facility] [address] [id number] [address] [place] [address], [place] [address] Oct, [facility] [address] [id number] [address] [place] [address], [place] [address] Aug, [facility] [address] [id number] [address] [place] [address], [place] [address] 29 Sep, 2011 [facility] [address] [id number] [address] [place] [address], [place] [address] Aug, [facility] [address] [id number] [address] [place] [address], [place] [address] Aug, [facility] [address] [id number] [address] [place] [address], [place] [address] Aug, [facility] [address] [id number] [address] [place] [address], [place] [address] Aug, [facility] [address] [id number] [address] [place] [address], [place] [address] Aug, [facility] [address] [id number] [address] [place] [address], [place] [address] Aug, [facility] [address] [id number] [address] [place] [address], [place] [address] 08 Aug, 2011 [facility] [address] [id number] [address] [place] [address], [place] [address] Jul, [facility] [facility] [address] [id number] [address] [place] [address], [place] [address] Jul, [facility] [address] [id number] [address] [place] [address], [place] [address] Jul, [facility] [address] [id number] [address] [place] [address], [place] [address] Jul, [facility] [address] [id number] [address] [place] [address], [place] [address] Jun, [facility] [address] [id number] [address] [place] [address], [place] [address] Jun, [facility] [address] [id number] [address] [place] [address], [place] [address] May, [facility] [address] [id number] [address] [place] [address], [place] [address] May, [facility] [address] [id number] [address] [place] [address], [place] [address] May, [facility] [address] [id number] [address] [place] [address], [place] [address] May, [facility] [address] [id number] [address] [place] [id number] May, [facility] [address] [id number] [address] [place] [address], [place] [address] Apr, [facility] [address] [id number] [address] [place] [id number] 28 Apr, 2011 [facility] [address] [id number] [address] [place] [address], [place] [address] Apr, [facility] [address] [id number] [address] [place] [address], [place] [address] 15 Jan, 2011 [facility] [address] [id number] [address] [place] [phone] Dec, [facility] [address] [id number] [address] [place] [id number] October, [facility] [address] [facility] [id number] [address] [place] [phone] Jun, [facility] [address] [facility] [id number] [address] [place] [id number] Apr, [facility] [address] [facility] [id number] [address] [place] [phone] Apr, [facility] [address] [facility] [id number] [address] [place] [id number] Apr, [facility] [address] [facility] [id number] [address] [place] [id number] Jun, IMMUNIZATIONS No Known Immunizations SOCIAL HISTORY [...]
--- OUTSIDE RECORDS SUMMARY | 2020-01-25 13:16 | XMS REPORT ---
Author Author Ana HALE Organization [facility] Address [address] [place] [address] Care Team Providers Care Financial Analysis Advisor Name Role Phone JAJA HALE Unavailable PROBLEMS Type Condition ICD9-CM Code [id number] Code Onset Dates Condition S tatus SNOMED Code Problem Attention deficit R41.840 Active 76 683784 Problem Cannabis abuse F12.10 Active 43259 009 Problem Chronic hepatitis C without hepatic coma B18.2 Active 719477702 Problem Attention deficit hyperactivity disorder (ADHD), combi luciano type F90.2 Active 13579870 Problem Bipolar disorder, in partial remission, most rec ent episode hypomanic F31.71 Active 196896550 Problem H/O laminectomy Z98.89 Active 1616 83903 Problem Bipolar 1 disorder F31.9 Active 3 34688902 Problem Anxiety disorder, unspecified type F41.9 Active 363628812 Problem Other chronic pain G89.29 Active 8 9666601 ALLERGIES Substance Reaction Event Type Date Status Zyprexa Unknown Drug Allergy Oct, Active Benzodiazepines Failed UDS (opiates, & THC) Non Drug Allergy Oct Active Amitiza Unknown Non Drug Allergy Oct, Active Hydrocodone Failed UDS (opiates, & THC) Non Drug Allergy Oct, 2 017 Active SOCIAL HISTORY Never Assessed PLAN OF CARE Activity Details Follow Up 3 Months Reason:pain mgmt VITAL SIGNS Height 69 in 2016-10-24 Weight 197.4 lbs 2016-10-24 Temperature 98.7 degrees Fahrenheit 2016-10-24 Heart Rate 92 bpm 2016-10-24 Respiratory Rate 20 2016-10-24 BMI 29.15 kg/m2 2016-10-24 Blood pressure systolic 117 mmHg 2016-10-24 Blood pressure diastolic 78 mmHg 2016-10-24 MEDICATIONS Medication Instructions Dosage Frequency Start Date End Date Duration S tatus HydrOXYzine HCl 50 mg Orally 3 times a day 1 tablet as needed 8h 30 days Active Plus Iron 29-1 MG Orally Once a day 1 tablet 24h 24 Ap r, 2016 90 days Active Gabapentin 800 MG Orally 4 times a day 1 tablet 6h 28 days Active Prazosin HCl 5 MG Orally Once a day 1 capsule at bedtime 24h Active Adderall 10 mg Orally 3 times a day 1 tablet 8h Active Valium 5 MG Orally Twice a day 1 tablet as needed 12h Active Seroquel 400 mg 2 tablet by Oral rou te 1 time per day at bedtime (Take with 200mg) Jul, Active RESULTS No Results PROCEDURES Procedure Date Ordered Result Body Site [facility] VISIT ESTABLISHED PATIENT October 24, 2016 IMMUNIZATIONS No Known Immunizations MEDICAL (GENERAL) HISTORY Type Description Date Medical History Psychiatric disorder Medical History Hard of hearing Surgical History Neofibrous tumor Surgical History back injection Hospitalization History Intestinal blockage Hospitalization History past psychiatric hospitalizations x2
--- OUTSIDE RECORDS SUMMARY | 2020-01-25 13:16 | XMS REPORT ---
Author Author Ana Brannon [facility] Address [address] [place] [address] Care Team Providers Care Living Coach Name Role Phone Clovis ANEUDY Unavailable PROBLEMS Type Condition ICD9-CM Code WHE92-DS Code Onset Dates Condition S tatus SNOMED Code Problem Chronic hepatitis C without hepatic coma B18.2 Active 342066697 Problem Cannabis abuse F12.10 Active 70963 009 Problem Bipolar 1 disorder F31.9 Active 3 44564813 Problem Attention deficit hyperactivity disorder (ADHD), combi luciano type F90.2 Active 01299884 Problem Attention deficit R41.840 Active 76 884175 Problem Hot flashes due to menopause N95.1 A ctive 888234746 Problem H/O laminectomy Z98.89 Active 1616 12199 Problem Other chronic pain G89.29 Active 8 9442541 Problem Anxiety disorder, unspecified type F41.9 Active 468812701 Problem Bipolar disorder, in partial remission, most rec ent episode hypomanic F31.71 Active [id number] ALLERGIES No Information ENCOUNTERS Encounter Location Date Diagnosis [facility] [address] [id number] [address] [place] [id number] Oct, [facility] [address] [facility] [id number] [address] [place] [id number] Oct, [facility] [address] [facility] [id number] [address] [place] [phone] Aug, [facility] [address] [facility] [id number] [address] [place] [id number] Jul, [facility] [address] [facility] [id number] [address] [place] [phone] Jul, [facility] [address] [facility] [id number] [address] [place] [phone] Apr, [facility] [address] [id number] [address] [place] [phone] Mar, Hot flashes due to menopause N95.1 ; Anxiety disorder, unspecified type F41.9 ; Low back pain M54.5 and Encounter for immunization Z23 [facility] [address] [id number] [address] [place] [phone] Dec, Other chronic pain G89.29 an d Low back pain M54.5 [facility] [address] [id number] [address] [place] [phone] October, [facility] [address] [id number] [address] [place] [phone] October, [facility] [address] [id number] [address] [place] [phone] October, [facility] [address] [facility] [id number] [address] [place] [phone] October, Other chronic pain G89.29 an d Chronic hepatitis C without hepatic coma B18.2 [facility] [address] [id number] [address] [place] [phone] Aug, Bipolar disorder, in partial remission, most recent episode hypomanic F31.71 ; Attention deficit hyperactivity disorder (ADHD), combined type F90.2 and Anxiety disorder, unspecified type F41.9 [facility] [address] [id number] [address] [place] [phone] Aug, [facility] [address] [id number] [address] [place] [phone] Aug, Bipolar disorder, in partial remission, most recent episode hypomanic F31.71 [facility] [address] [facility] [id number] [address] [place] [phone] Aug, [facility] [address] [facility] [id number] [address] [place] [phone] Aug, Bipolar disorder, in partial remission, most recent episode hypomanic F31.71 [facility] [address] [id number] [address] [place] [phone] Aug, Bipolar disorder, in partial remission, most recent episode hypomanic F31.71 ; Attention deficit hyperactivity disorder (ADHD), combined type F90.2 and Anxiety disorder, unspecified type F41.9 [facility] [address] [id number] [address] [place] [id number] Aug, Low back pain M54.5 and Pain in left wrist M25.532 [facility] [address] [id number] [address] [place] [phone] Aug, [facility] [address] [id number] [address] [place] [phone] Jun, [facility] [address] [id number] [address] [place] [phone] Apr, Bipolar disorder, in partial remission, most recent episode hypomanic F31.71 [facility] [address] [id number] [address] [place] [phone] Apr, [facility] [address] [id number] [address] [place] [phone] Apr, Bipolar disorder, in partial remission, most recent episode hypomanic F31.71 ; Attention deficit hyperactivity disorder (ADHD), combined type F90.2 ; Anxiety disorder, unspecified type F41.9 and Other fci (current) drug therapy Z79.899 [facility] [address] [id number] [address] [place] [phone] Apr, Bipolar disorder, in partial remission, most recent episode hypomanic F31.71 [facility] [address] [id number] [address] [place] [phone] Apr, Bipolar disorder, in partial remission, most recent episode hypomanic F31.71 [facility] [address] [id number] [address] [place] [phone] Mar, [facility] [address] [id number] [address] [place] [phone] Mar, Bipolar disorder, in partial remission, most recent episode hypomanic F31.71 ; Encounter for immunization Z23 and Low back pain M54.5 [facility] [address] [id number] [address] [place] [phone] 17 Mar, 2018 Bipolar disorder, in partial remission, most recent episode hypomanic F31.71 [facility] [address] [id number] [address] [place] [phone] Mar, Bipolar disorder, in partial remission, most recent episode hypomanic F31.71 [facility] [address] [id number] [address] [place] [phone] Jan, Bipolar disorder, in partial remission, most recent episode hypomanic F31.71 [facility] [address] [id number] [address] [place] [phone] Jan, Bipolar disorder, in partial remission, most recent episode hypomanic F31.71 [facility] [address] [id number] [address] [place] [phone] Dec, Bipolar disorder, in partial remission, most recent episode hypomanic F31.71 [facility] [address] [facility] [id number] [address] [place] [phone] Dec, Bipolar disorder, in partial remission, most recent episode hypomanic F31.71 ; Attention deficit hyperactivity disorder (ADHD), combined type F90.2 ; Anxiety disorder, unspecified type F41.9 and Other fci (current) drug therapy Z79.899 [facility] [address] [id number] [address] [place] [phone] Dec, Bipolar disorder, in partial remission, most recent episode hypomanic F31.71 [facility] [address] [facility] [id number] [address] [place] [id number] Dec, Bipolar disorder, in partial remission, most recent episode hypomanic F31.71 [facility] [address] [facility] [id number] [address] [place] [phone] October, Bipolar disorder, in partial remission, most recent episode hypomanic F31.71 [facility] [address] [id number] [address] [place] [phone] October, [facility] [address] [id number] [address] [place] [phone] October, [facility] [address] [id number] [address] [place] [phone] Oct, Bipolar disorder, in partial remission, most recent episode hypomanic F31.71 ; Attention deficit hyperactivity disorder (ADHD), combined type F90.2 ; Anxiety disorder, unspecified type F41.9 and Encounter for drug screening Z02.83 [facility] [address] [id number] [address] [place] [phone] Oct, Bipolar disorder, in partial remission, most recent episode hypomanic F31.71 [facility] [address] [id number] [address] [place] [phone] Oct, Bipolar disorder, in partial remission, most recent episode hypomanic F31.71 [facility] [address] [facility] [id number] [address] [place] [id number] Aug, Bipolar disorder, in partial remission, most recent episode hypomanic F31.71 [facility] [address] [facility] [id number] [address] [place] [phone] Aug, Bipolar disorder, in partial remission, most recent episode hypomanic F31.71 [facility] [address] [id number] [address] [place] [phone] Aug, Bipolar disorder, in partial remission, most recent episode hypomanic F31.71 [facility] [address] [facility] [id number] [address] [place] [phone] Jul, Bipolar disorder, in partial remission, most recent episode hypomanic F31.71 ; Attention deficit hyperactivity disorder (ADHD), combined type F90.2 and Anxiety disorder, unspecified type F41.9 [facility] [address] [id number] [address] [place] [phone] Jul, Bipolar disorder, in partial remission, most recent episode hypomanic F31.71 [facility] [address] [id number] [address] [place] [phone] Jun, Bipolar disorder, in partial remission, most recent episode hypomanic F31.71 [facility] [address] [id number] [address] [place] [phone] May, Bipolar disorder, in partial remission, most recent episode hypomanic F31.71 [facility] [address] [id number] [address] [place] [phone] May, Bipolar disorder, in partial remission, most recent episode hypomanic F31.71 [facility] [address] [facility] [id number] [address] [place] [phone] Apr, [facility] [address] [facility] [id number] [address] [place] [phone] Apr, Bipolar disorder, in partial remission, most recent episode hypomanic F31.71 ; Attention deficit hyperactivity disorder (ADHD), combined type F90.2 ; Anxiety disorder, unspecified type F41.9 and Cann[address] F12.10 [facility] [address] [facility] [id number] [address] [place] [phone] Apr, Attention deficit hyperactiv ity disorder (ADHD), combined type F90.2 [facility] [address] [id number] [address] [place] [phone] Mar, Attention deficit hyperactiv ity disorder (ADHD), combined type F90.2 [facility] [address] [id number] [address] [place] [phone] 14 Mar, 2017 Anxiety disorder, unspecifie d type F41.9 [facility] [address] [facility] [id number] [address] [place] [phone] Jan, Attention deficit hyperactiv ity disorder (ADHD), combined type F90.2 [facility] [address] [place] [id number] [address] [place] [phone] Jan, Anxiety disorder, unspecifie d type F41.9 [facility] [address] [place] [id number] [address] [place] [phone] Jan, Other chronic pain G89.29 ; Chronic hepatitis C without hepatic coma B18.2 and Bipolar [address] [facility] [address] [place] [id number] [address] [place] [phone] Dec, Attention deficit hyperactiv ity disorder (ADHD), combined type F90.2 [facility] [address] [place] [id number] [address] [place] [phone] Dec, Bipolar disorder, in partial remission, most recent episode hypomanic F31.71 ; Attention deficit hyperactivity disorder (ADHD), combined type F90.2 and Anxiety disorder, unspecified type F41.9 [place] [address] [place] [id number] [place] [phone] Dec, Bipolar disorder, in partial remission, most recent episode hypomanic F31.71 ; Attention deficit hyperactivity disorder (ADHD), combined type F90.2 and Anxiety disorder, unspecified type F41.9 [place] [address] [place] [id number] [place] [phone] Dec, Bipolar 1 disorder F31.9 and Attention deficit R41.840 [place] [address] [place] [id number] [address] [place] [id number] Oct, Other chronic pain G89.29 ; Alopecia L65.9 and Screening, lipid Z13.220 [facility] [address] [place] [id number] [address] [place] [phone] Oct, [place] [address] [place] [id number] [place] [phone] Aug, [place] [address] [place] [id number] [place] [address] Aug, Eustachian tube dysfunction, right H69.81 ; Vertigo R42 and Other chronic pain G89.29 [facility] [address] [id number] [address] [place] [phone] Aug, [facility] [address] [id number] [address] [place] [phone] Jun, [facility] [address] [id number] [address] [place] [phone] Jun, Low back pain M54.5 and Othe r chronic pain G89.29 [facility] [address] [id number] [address] [place] [phone] Jun, [facility] [address] [id number] [address] [place] [phone] May, [facility] [address] [id number] [address] [place] [phone] Jan, [facility] [address] [id number] [address] [place] [phone] Dec, [facility] [address] [id number] [address] [place] [phone] Dec, [facility] [address] [id number] [address] [place] [phone] Jun, [facility] [address] [facility] [id number] [address] [place] [id number] Apr, Eustachian tube dysfunction, unspecified laterality H69.80 ; Hot flashes N95.1 and Encounter for immunization Z23 [facility] [address] [id number] [address] [place] [phone] Jan, [facility] [address] [id number] [address] [place] [phone] Jan, [facility] [address] [id number] [address] [place] [phone] Jan, [facility] [address] [id number] [address] [place] [phone] Jan, [facility] [address] [id number] [address] [place] [phone] Jan, Encounter to establish care V65.8 ; Bipolar 1 disorder 296.7 ; Abdominal pain 789.00 ; Constipation 564.00 ; Hard of hearing 389.9 and Drug abuse 305.90 [facility] [address] [id number] [address] [place] [phone] Dec, [facility] [address] [id number] [address] [place] [phone] October, [facility] [address] [id number] [address] [place] [phone] October, [facility] [address] [id number] [address] [place] [phone] Oct, [facility] [address] [id number] [address] [place] [phone] Oct, [facility] [address] [id number] [address] [place] [phone] Oct, [facility] [address] [id number] [address] [place] [phone] Aug, [facility] [address] [id number] [address] [place] [phone] Aug, [facility] [address] [id number] [address] [place] [phone] Aug, [facility] [address] [id number] [address] [place] [phone] Aug, [facility] [address] [id number] [address] [place] [phone] Aug, [facility] [address] [id number] [address] [place] [phone] Aug, [facility] [address] [id number] [address] [place] [phone] Aug, [facility] [address] [id number] [address] [place] [address], [place] [id number] Aug, 2014 [facility] [address] [id number] [address] [place] [address], [place] [id number] Aug, 2014 [facility] [address] [id number] [address] [place] [address], [place] [id number] Aug, 2014 [facility] [address] [id number] [address] [place] [address], [place] [id number] Aug, 2014 [facility] [address] [id number] [address] [place] [address], [place] [id number] Aug, 2014 [facility] [address] [id number] [address] [place] [address], [place] [id number] Aug, 2014 [facility] [address] [id number] [address] [place] [address], [place] [id number] Aug, 2014 [facility] [address] [id number] [address] [place] [address], [place] [id number] Aug, [facility] [address] [id number] [address] [place] [address], [place] [id number] Jul, [facility] [address] [id number] [address] [place] [address], [place] [id number] Jul, [facility] [address] [id number] [address] [place] [address], [place] [id number] Jul, [facility] [address] [id number] [address] [place] [address], [place] [id number] Jul, [facility] [address] [id number] [address] [place] [address], [place] [id number] Jul, [facility] [address] [id number] [address] [place] [address], [place] [id number] Jul, [facility] [address] [id number] [address] [place] [address], [place] [id number] Jul, [facility] [address] [id number] [address] [place] [address], [place] [id number] Jul, [facility] [address] [id number] [address] [place] [address], [place] [id number] Jun, [facility] [address] [id number] [address] [place] [address], [place] [id number] Jun, [facility] [address] [id number] [address] [place] [address], [place] [id number] Jun, [facility] [address] [id number] [address] [place] [address], [place] [id number] Jun, [facility] [address] [id number] [address] [place] [address], [place] [id number] Jun, [facility] [address] [id number] [address] [place] [address], [place] [id number] Jun, [facility] [address] [id number] [address] [place] [address], [place] [id number] Jun, [facility] [address] [id number] [address] [place] [address], [place] [id number] Jun, [facility] [address] [id number] [address] [place] [address], [place] [id number] Jun, [facility] [address] [id number] [address] [place] [address], [place] [id number] Jun, [facility] [address] [id number] [address] [place] [address], [place] [id number] Jun, [facility] [address] [id number] [address] [place] [address], [place] [id number] May, [facility] [address] [id number] [address] [place] [address], [place] [id number] May, [facility] [address] [id number] [address] [place] [address], [place] [id number] May, [facility] [address] [id number] [address] [place] [address], [place] [id number] May, [facility] [address] [id number] [address] [place] [address], [place] [id number] May, [facility] [address] [id number] [address] [place] [address], [place] [id number] May, [facility] [address] [id number] [address] [place] [address], [place] [id number] May, [facility] [address] [id number] [address] [place] [address], [place] [id number] Apr, [facility] [address] [id number] [address] [place] [address], [place] [id number] Apr, [facility] [address] [id number] [address] [place] [address], [place] [id number] Apr, [facility] [address] [id number] [address] [place] [address], [place] [id number] Apr, [facility] [address] [id number] [address] [place] [address], [place] [id number] Apr, [facility] [address] [id number] [address] [place] [address], [place] [id number] Apr, [facility] [address] [id number] [address] [place] [address], [place] [id number] Mar, [facility] [address] [id number] [address] [place] [address], [place] [id number] 29 Mar, 2014 [facility] [address] [id number] [address] [place] [address], [place] [id number] Mar, [facility] [address] [id number] [address] [place] [address], [place] [id number] Mar, [facility] [address] [id number] [address] [place] [address], [place] [id number] Mar, [facility] [address] [id number] [address] [place] [address], [place] [id number] Mar, [facility] [address] [id number] [address] [place] [address], [place] [id number] Jan, [facility] [address] [id number] [address] [place] [address], [place] [id number] Jan, [facility] [address] [id number] [address] [place] [address], [place] [id number] Jan, [facility] [address] [id number] [address] [place] [address], [place] [id number] Jan, [facility] [address] [id number] [address] [place] [address], [place] [id number] Dec, [facility] [address] [id number] [address] [place] [address], [place] [id number] Dec, [facility] [address] [id number] [address] [place] [address], [place] [id number] Dec, [facility] [address] [id number] [address] [place] [address], [place] [id number] Dec, [facility] [address] [id number] [address] [place] [address], [place] [id number] Dec, [facility] [address] [id number] [address] [place] [address], [place] [id number] Dec, [facility] [address] [id number] [address] [place] [address], [place] [id number] Dec, [facility] [address] [id number] [address] [place] [address], [place] [address] Dec, [facility] [address] [id number] [address] [place] [address], [place] [address] Dec, [facility] [address] [id number] [address] [place] [address], [place] [address] Dec, [facility] [address] [id number] [address] [place] [address], [place] [address] Dec, [facility] [address] [id number] [address] [place] [address], [place] [address] Dec, [facility] [address] [id number] [address] [place] [address], [place] [address] October, [facility] [address] [id number] [address] [place] [address], [place] [address] October, [facility] [address] [id number] [address] [place] [address], [place] [address] October, [facility] [address] [id number] [address] [place] [address], [place] [address] October, [facility] [address] [id number] [address] [place] [address], [place] [address] October, [facility] [address] [id number] [address] [place] [address], [place] [address] October, [facility] [address] [id number] [address] [place] [address], [place] [address] Oct, [facility] [address] [id number] [address] [place] [address], [place] [address] Oct, [facility] [address] [id number] [address] [place] [address], [place] [address] Oct, [facility] [address] [id number] [address] [place] [address], [place] [id number] Oct, [facility] [address] [id number] [address] [place] [address], [place] [address] Oct, [facility] [address] [id number] [address] [place] [address], [place] [address] Oct, [facility] [address] [id number] [address] [place] [address], [place] [address] Oct, [facility] [address] [id number] [address] [place] [address], [place] [address] Oct, [facility] [address] [id number] [address] [place] [address], [place] [address] Oct, [facility] [address] [id number] [address] [place] [address], [place] [address] Oct, [facility] [address] [id number] [facility] [place] [address] 08 Oct, 2013 [facility] [address] [id number] [facility] [place] [address] 08 Oct, 2013 [facility] [address] [id number] [facility] [place] [id number] 15 Aug, 2013 [facility] [address] [id number] [address] [place] [address], [place] [id number] 15 Aug, 2013 [facility] [address] [id number] [address] [place] [address], [place] [address] Aug, [facility] [address] [id number] [address] [place] [address], [place] [address] Aug, [facility] [address] [id number] [address] [place] [address], [place] [address] Aug, [facility] [address] [id number] [address] [place] [address], [place] [address] Aug, [facility] [address] [id number] [address] [place] [address], [place] [address] Aug, [facility] [address] [id number] [address] [place] [address], [place] [address] Aug, [facility] [address] [id number] [address] [place] [address], [place] [address] Aug, [facility] [address] [id number] [address] [place] [address], [place] [address] Aug, [facility] [address] [id number] [address] [place] [address], [place] [address] Aug, [facility] [address] [id number] [address] [place] [address], [place] [address] Aug, [facility] [address] [id number] [address] [place] [address], [place] [address] Aug, [facility] [address] [id number] [address] [place] [address], [place] [address] 20 Aug, 2013 [facility] [address] [id number] [address] [place] [address], [place] [address] 14 Aug, 2013 [facility] [address] [id number] [address] [place] [address], [place] [address] 14 Aug, 2013 [facility] [address] [id number] [address] [place] [address], [place] [address] 14 Aug, 2013 [facility] [address] [id number] [address] [place] [address], [place] [address] 14 Aug, 2013 [facility] [address] [id number] [address] [place] [address], [place] [id number] 07 Aug, 2013 [facility] [address] [id number] [address] [place] [address], [place] [address] 07 Aug, 2013 [facility] [address] [id number] [address] [place] [address], [place] [address] 06 Aug, 2013 [facility] [address] [id number] [address] [place] [address], [place] [id number] 06 Aug, 2013 [facility] [address] [id number] [address] [place] [address], [place] [id number] 04 Aug, 2013 [facility] [address] [id number] [address] [place] [address], [place] [id number] 04 Aug, 2013 [facility] [address] [id number] [address] [place] [address], [place] [id number] Aug, [facility] [address] [id number] [address] [place] [address], [place] [id number] Jul, [facility] [address] [id number] [address] [place] [address], [place] [address] Jul, [facility] [address] [id number] [address] [place] [address], [place] [address] Jul, [facility] [address] [id number] [address] [place] [address], [place] [address] Jul, [facility] [address] [id number] [address] [place] [address], [place] [address] Jul, [facility] [address] [id number] [address] [place] [address], [place] [address] Jul, [facility] [address] [id number] [address] [place] [address], [place] [address] Jul, [facility] [address] [id number] [address] [place] [address], [place] [address] Jul, [facility] [address] [id number] [address] [place] [address], [place] [address] Jul, [facility] [address] [id number] [address] [place] [address], [place] [address] Jul, [facility] [address] [id number] [address] [place] [address], [place] [address] Jul, [facility] [address] [id number] [address] [place] [address], [place] [address] Jul, [facility] [address] [id number] [address] [place] [address], [place] [address] Jul, [facility] [address] [id number] [address] [place] [address], [place] [address] Jul, [facility] [address] [id number] [address] [place] [address], [place] [address] Jul, [facility] [address] [id number] [address] [place] [address], [place] [address] Jul, [facility] [address] [id number] [address] [place] [address], [place] [address] Jul, [facility] [address] [id number] [address] [place] [address], [place] [address] Jul, [facility] [address] [id number] [address] [place] [address], [place] [address] Jul, [facility] [address] [id number] [address] [place] [address], [place] [address] Jul, [facility] [address] [id number] [address] [place] [address], [place] [address] Jun, [facility] [address] [id number] [address] [place] [address], [place] [address] Jun, [facility] [address] [id number] [address] [place] [address], [place] [address] Jun, [facility] [address] [id number] [address] [place] [address], [place] [address] Jun, [facility] [address] [id number] [address] [place] [address], [place] [address] Jun, [facility] [address] [id number] [address] [place] [address], [place] [address] Jun, [facility] [address] [id number] [address] [place] [address], [place] [address] Jun, [facility] [address] [id number] [address] [place] [address], [place] [address] Jun, [facility] [address] [id number] [address] [place] [address], [place] [address] Jun, [facility] [address] [id number] [address] [place] [address], [place] [address] Jun, [facility] [address] [id number] [address] [place] [address], [place] [address] Jun, [facility] [address] [id number] [address] [place] [address], [place] [address] Jun, [facility] [address] [id number] [address] [place] [address], [place] [address] Jun, [facility] [address] [id number] [address] [place] [address], [place] [address] Jun, [facility] [address] [id number] [address] [place] [address], [place] [address] Jun, [facility] [address] [id number] [address] [place] [address], [place] [address] 18 Jun, 2013 [facility] [address] [id number] [address] [place] [address], [place] [address] 18 Jun, 2013 [facility] [address] [id number] [address] [place] [address], [place] [address] 17 Jun, 2013 [facility] [address] [id number] [address] [place] [address], [place] [address] 17 Jun, 2013 [facility] [address] [id number] [address] [place] [address], [place] [address] 13 Jun, 2013 [facility] [address] [id number] [address] [place] [address], [place] [address] Jun, [facility] [address] [id number] [address] [place] [address], [place] [address] Jun, [facility] [address] [id number] [address] [place] [address], [place] [address] Jun, [facility] [address] [id number] [address] [place] [address], [place] [address] 05 Jun, 2013 [facility] [address] [id number] [address] [place] [address], [place] [address] 05 Jun, 2013 [facility] [address] [id number] [address] [place] [address], [place] [address] 04 Jun, 2013 [facility] [address] [id number] [address] [place] [address], [place] [address] 04 Jun, 2013 [facility] [address] [id number] [address] [place] [address], [place] [address] 17 May, 2013 [facility] [address] [id number] [address] [place] [address], [place] [address] 17 May, 2013 [facility] [address] [id number] [address] [place] [address], [place] [address] May, [facility] [address] [id number] [address] [place] [address] [address] May, [facility] [address] [id number] [address] [place] [address], [place] [address] May, [facility] [address] [id number] [address] [place] [address], [place] [address] May, [facility] [address] [id number] [address] [place] [address], [place] [address] Apr, [facility] [address] [id number] [address] [place] [address], [place] [address] Apr, [facility] [address] [id number] [address] [place] [address], [place] [address] Apr, [facility] [address] [id number] [address] [place] [address], [place] [address] Apr, [facility] [address] [id number] [address] [place] [address], [place] [address] Apr, [facility] [address] [id number] [address] [place] [address], [place] [address] Apr, [facility] [address] [id number] [address] [place] [address], [place] [address] Apr, [facility] [address] [id number] [address] [place] [address] Apr, [facility] [address] [id number] [address] [place] [id number] 26 Mar, 2012 [facility] [address] [id number] [address] [place] [address] 24 Sep, 2012 [facility] [address] [id number] [address] [place] [address], [place] [address] 17 Sep2012 [facility] [address] [id number] [address] [place] [id number] 17 Sep, 2012 [facility] [address] [id number] [address] [place] [address], [place] [address] 11 Mar, 2013 [facility] [address] [id number] [facility] [place] [address] 10 Mar, 2013 [facility] [address] [id number] [address] [place] [address], [place] [address] 05 Mar, 2013 [facility] [address] [id number] [address] [place] [address], [place] [address] 04 Mar, 2013 [facility] [address] [id number] [address] [place] [address], [place] [address] 20 Jan, 2013 [facility] [address] [id number] [address] [place] [address], [place] [address] Jan, [facility] [address] [id number] [address] [place] [address], [place] [address] 14 Jan, 2013 [facility] [address] [id number] [address] [place] [address], [place] [address] Jan, [facility] [address] [id number] [address] [place] [address], [place] [address] Jan, [facility] [address] [id number] [address] [place] [address], [place] [address] Jan, [facility] [address] [id number] [address] [place] [address], [place] [address] Dec, [facility] [address] [id number] [address] [place] [address], [place] [address] Dec, [facility] [address] [id number] [address] [place] [address], [place] [address] Dec, [facility] [address] [id number] [address] [place] [address], [place] [address] Dec, [facility] [address] [id number] [address] [place] [address], [place] [address] 18 Dec, 2012 [facility] [address] [id number] [address] [place] [address], [place] [address] 17 Dec, 2012 [facility] [address] [id number] [address] [place] [address], [place] [address] 16 Dec, 2012 [facility] [address] [id number] [address] [place] [address], [place] [address] 16 Dec, 2012 [facility] [address] [id number] [address] [place] [address], [place] [address] 15 Dec, 2012 [facility] [address] [id number] [address] [place] [address], [place] [address] 10 Dec, 2012 [facility] [address] [id number] [address] [place] [address], [place] [address] Dec, [facility] [address] [id number] [address] [place] [address], [place] [address] Dec, [facility] [address] [id number] [address] [place] [address], [place] [address] Dec, [facility] [address] [id number] [address] [place] [address], [place] [address] Dec, [facility] [address] [id number] [address] [place] [address], [place] [address] Dec, [facility] [address] [id number] [address] [place] [address], [place] [address] Dec, [facility] [address] [id number] [address] [place] [address], [place] [address] October, [facility] [address] [id number] [address] [place] [address], [place] [address] October, [facility] [address] [id number] [address] [place] [address], [place] [address] October, [facility] [address] [id number] [address] [place] [address], [place] [id number] October, [facility] [address] [id number] [address] [place] [address], [place] [address] October, [facility] [address] [id number] [address] [place] [address], [place] [address] October, [facility] [address] [id number] [address] [place] [address], [place] [address] October, [facility] [address] [id number] [address] [place] [address], [place] [id number] Oct, [facility] [address] [id number] [address] [place] [address], [place] [id number] Oct, [facility] [address] [id number] [address] [place] [address], [place] [id number] Oct, [facility] [address] [id number] [address] [place] [address], [place] [id number] Oct, [facility] [address] [id number] [address] [place] [address], [place] [id number] Oct, [facility] [address] [id number] [address] [place] [address], [place] [id number] Oct, [facility] [address] [id number] [address] [place] [address], [place] [id number] Oct, [facility] [address] [id number] [address] [place] [address], [place] [id number] 15 Oct, 2012 [facility] [address] [id number] [address] [place] [address], [place] [id number] Oct, [facility] [address] [id number] [address] [place] [address], [place] [id number] Oct, [facility] [address] [id number] [address] [place] [address], [place] [id number] Oct, [facility] [address] [id number] [address] [place] [address], [place] [id number] Oct, [facility] [address] [id number] [address] [place] [address], [place] [id number] Aug, [facility] [address] [id number] [address] [place] [address], [place] [id number] Aug, [facility] [address] [id number] [address] [place] [address], [place] [id number] Aug, [facility] [address] [id number] [address] [place] [address], [place] [id number] 06 Aug, 2012 [facility] [address] [id number] [address] [place] [address], [place] [id number] 05 Aug, 2012 [facility] [address] [id number] [address] [place] [address], [place] [id number] 05 Aug, 2012 [facility] [address] [id number] [address] [place] [address], [place] [id number] 20 Aug, 2012 [facility] [address] [id number] [address] [place] [address], [place] [id number] 14 Aug, 2012 [facility] [address] [id number] [address] [place] [address], [place] [id number] 12 Aug, 2012 [facility] [address] [id number] [address] [place] [address], [place] [id number] Aug, [facility] [address] [id number] [address] [place] [address], [place] [id number] 29 Jul, 2012 [facility] [address] [id number] [address] [place] [address], [place] [id number] 15 Jul, 2012 [facility] [address] [id number] [address] [place] [address], [place] [id number] 08 Jul, 2012 [facility] [address] [id number] [address] [place] [address], [place] [id number] 20 Jun, 2012 [facility] [address] [id number] [address] [place] [address], [place] [id number] 18 Jun, 2012 [facility] [address] [id number] [address] [place] [address], [place] [id number] 18 Jun, 2012 [facility] [address] [id number] [address] [place] [address], [place] [id number] 18 Jun, 2012 [facility] [address] [id number] [address] [place] [address], [place] [id number] 18 Jun, 2012 [facility] [address] [id number] [address] [place] [address] [address] 14 Jun, 2012 [facility] [address] [id number] [address] [place] [address], [place] [id number] 14 Jun, 2012 [facility] [address] [id number] [address] [place] [address], [place] [id number] 13 Jun, 2012 [facility] [address] [id number] [address] [place] [address], [place] [id number] 13 Jun, 2012 [facility] [address] [id number] [address] [place] [address], [place] [id number] 11 Jun, 2012 [facility] [address] [id number] [address] [place] [address], [place] [id number] 11 Jun, 2012 [facility] [address] [id number] [address] [place] [address], [place] [id number] 11 Jun, 2012 [facility] [address] [id number] [address] [place] [address], [place] [id number] Jun, [facility] [address] [id number] [address] [place] [address], [place] [id number] 07 Jun, 2012 [facility] [address] [id number] [address] [place] [address], [place] [id number] 07 Jun, 2012 [facility] [address] [id number] [address] [place] [address], [place] [id number] 06 Jun, 2012 [facility] [address] [id number] [address] [place] [address], [place] [id number] Jun, [facility] [address] [id number] [address] [place] [address], [place] [id number] Jun, [facility] [address] [id number] [address] [place] [address], [place] [id number] Jun, [facility] [address] [id number] [address] [place] [address], [place] [id number] 05 Jun, 2012 [facility] [address] [id number] [address] [place] [address], [place] [id number] 05 Jun, 2012 [facility] [address] [id number] [address] [place] [address], [place] [id number] Jun, [facility] [address] [id number] [address] [place] [address], [place] [address] Jun, [facility] [address] [id number] [address] [place] [address], [place] [address] May, [facility] [address] [id number] [address] [place] [address], [place] [address] May, [facility] [address] [id number] [address] [place] [address], [place] [id number] May, [facility] [address] [id number] [address] [place] [address], [place] [address] May, [facility] [address] [id number] [address] [place] [address], [place] [address] May, [facility] [address] [id number] [address] [place] [address], [place] [address] May, [facility] [address] [id number] [address] [place] [address], [place] [address] May, [facility] [address] [id number] [address] [place] [address], [place] [address] May, [facility] [address] [id number] [address] [place] [address], [place] [address] Apr, [facility] [address] [id number] [address] [place] [address], [place] [address] 30 Apr, 2012 [facility] [address] [id number] [address] [place] [address], [place] [id number] 29 Apr, 2012 [facility] [address] [id number] [address] [place] [address], [place] [address] Apr, [facility] [address] [id number] [address] [place] [address], [place] [id number] Apr, [facility] [address] [id number] [address] [place] [id number] Apr, [facility] [address] [id number] [address] [place] [address], [place] [id number] Apr, [facility] [address] [id number] [address] [place] [address], [place] [address] Apr, [facility] [address] [id number] [address] [place] [address], [place] [id number] Apr, [facility] [address] [id number] [address] [place] [address], [place] [id number] Apr, [facility] [address] [id number] [address] [place] [address], [place] [id number] Apr, [facility] [address] [id number] [address] [place] [address], [place] [address] Apr, [facility] [address] [id number] [address] [place] [address], [place] [address] Mar, [facility] [address] [id number] [address] [place] [address], [place] [id number] 18 Mar, 2012 [facility] [address] [id number] [address] [place] [address], [place] [address] Mar, [facility] [address] [id number] [address] [place] [phone] Mar, [facility] [address] [id number] [address] [place] [id number] Mar, [facility] [address] [id number] [address] [place] [id number] Mar, [facility] [address] [id number] [address] [place] [phone] Mar, [facility] [address] [id number] [address] [place] [id number] Jan, [facility] [address] [id number] [address] [place] [phone] Jan, [facility] [address] [id number] [address] [place] [id number] Jan, [facility] [address] [id number] [address] [place] [address], [place] [id number] Jan, [facility] [address] [id number] [address] [place] [address], [place] [address] Jan, [facility] [address] [id number] [address] [place] [address], [place] [address] Jan, [facility] [address] [id number] [address] [place] [address], [place] [address] Jan, [facility] [address] [id number] [address] [place] [address], [place] [address] Jan, [facility] [address] [id number] [address] [place] [address], [place] [address] Jan, [facility] [address] [id number] [address] [place] [address], [place] [id number] Jan, [facility] [address] [id number] [address] [place] [address], [place] [address] Jan, [facility] [address] [id number] [address] [place] [address], [place] [address] Dec, [facility] [address] [id number] [address] [place] [address], [place] [id number] Dec, [facility] [address] [id number] [address] [place] [address], [place] [id number] Dec, [facility] [address] [id number] [address] [place] [address], [place] [address] Dec, [facility] [address] [id number] [address] [place] [address], [place] [address] Dec, [facility] [address] [id number] [address] [place] [address], [place] [address] Dec, [facility] [address] [id number] [address] [place] [address], [place] [address] Dec, [facility] [address] [id number] [facility] [place] [id number] 17 Jan, 2012 [facility] [address] [id number] [address] [place] [address], [place] [id number] 16 Jan, 2012 [facility] [address] [id number] [address] [place] [address], [place] [id number] 13 Jan, 2012 [facility] [address] [id number] [address] [place] [address], [place] [id number] 13 Jan, 2012 [facility] [address] [id number] [address] [place] [address], [place] [address] Dec, [facility] [address] [id number] [address] [place] [address], [place] [id number] Dec, [facility] [address] [id number] [address] [place] [address], [place] [address] Dec, [facility] [address] [id number] [address] [place] [address], [place] [address] Dec, [facility] [address] [id number] [address] [place] [address], [place] [address] Dec, [facility] [address] [id number] [address] [place] [address], [place] [id number] 15 Dec, 2011 [facility] [address] [id number] [address] [place] [address], [place] [id number] 06 Dec, 2011 [facility] [address] [id number] [address] [place] [address], [place] [id number] 05 Dec, 2011 [facility] [address] [id number] [address] [place] [address], [place] [address] October, [facility] [address] [id number] [address] [place] [address], [place] [address] October, [facility] [address] [id number] [address] [place] [address], [place] [address] October, [facility] [address] [id number] [address] [place] [address], [place] [address] October, [facility] [address] [id number] [address] [place] [address], [place] [address] October, [facility] [address] [id number] [address] [place] [address], [place] [address] October, [facility] [address] [id number] [address] [place] [address], [place] [id number] Oct, [facility] [address] [id number] [address] [place] [address], [place] [address] Oct, [facility] [address] [id number] [address] [place] [address], [place] [address] Oct, [facility] [address] [id number] [address] [place] [address], [place] [address] Oct, [facility] [address] [id number] [address] [place] [address], [place] [id number] Oct, [facility] [address] [id number] [address] [place] [address], [place] [id number] Oct, [facility] [address] [id number] [address] [place] [address], [place] [address] Oct, [facility] [address] [id number] [address] [place] [address], [place] [address] Aug, [facility] [address] [id number] [address] [place] [address], [place] [id number] Aug, [facility] [address] [id number] [address] [place] [address], [place] [id number] Aug, [facility] [address] [id number] [address] [place] [address], [place] [address] Aug, [facility] [address] [id number] [address] [place] [address], [place] [address] Aug, [facility] [address] [id number] [address] [place] [address], [place] [id number] Aug, [facility] [address] [id number] [address] [place] [address], [place] [id number] Aug, [facility] [address] [id number] [address] [place] [address], [place] [address] Aug, [facility] [address] [id number] [address] [place] [address], [place] [id number] 08 Aug, 2011 [facility] [address] [id number] [address] [place] [address], [place] [id number] Jul, [facility] [address] [id number] [address] [place] [address], [place] [address] Jul, [facility] [address] [id number] [address] [place] [address], [place] [address] Jul, [facility] [address] [id number] [address] [place] [address], [place] [address] Jul, [facility] [address] [id number] [address] [place] [address], [place] [id number] Jun, [facility] [address] [id number] [address] [place] [address], [place] [address] Jun, [facility] [address] [id number] [address] [place] [address], [place] [address] May, [facility] [address] [id number] [address] [place] [address], [place] [address] May, [facility] [address] [id number] [address] [place] [address], [place] [address] May, [facility] [address] [id number] [address] [place] [address], [place] [address] May, [facility] [address] [id number] [address] [place] [address], [place] [address] May, [facility] [address] [id number] [address] [place] [address], [place] [address] 28 Apr, 2011 [facility] [address] [id number] [address] [place] [address], [place] [id number] Apr, [facility] [address] [id number] [address] [place] [id number] Apr, [facility] [address] [id number] [address] [place] [id number] Jan, [facility] [address] [id number] [address] [place] [id number] Dec, [facility] [address] [id number] [address] [place] [id number] October, [facility] [address] [id number] [address] [place] [id number] Jun, [facility] [address] [id number] [address] [place] [id number] Apr, [facility] [address] [id number] [address] [place] [phone] Apr, [facility] [address] [id number] [address] [place] [id number] Apr, [facility] [address] [id number] [address] [place] [id number] Jun, IMMUNIZATIONS No Known Immunizations SOCIAL HISTORY [...]
--- OUTSIDE RECORDS SUMMARY | 2020-01-25 13:17 | XMS REPORT ---
Author Author Ana MCDONALD [facility] Address [address] [place] [address] Care Team Providers Care Furnace Reliner Name Role Phone CHAZ MCDONALD Unavailable PROBLEMS Type Condition ICD9-CM Code SHX19-IS Code Onset Dates Condition S tatus SNOMED Code Problem Chronic hepatitis C without hepatic coma B18.2 Active 689404491 Problem Cannabis abuse F12.10 Active 33642 009 Problem Bipolar 1 disorder F31.9 Active 3 02744353 Problem Attention deficit hyperactivity disorder (ADHD), combi luciano type F90.2 Active 29162614 Problem Attention deficit R41.840 Active 76 317883 Problem Hot flashes due to menopause N95.1 A ctive 242672586 Problem H/O laminectomy Z98.89 Active 1616 31295 Problem Other chronic pain G89.29 Active 8 0771143 Problem Anxiety disorder, unspecified type F41.9 Active 335499250 Problem Bipolar disorder, in partial remission, most rec ent episode hypomanic F31.71 Active [id number] ALLERGIES No Information ENCOUNTERS Encounter Location Date Diagnosis [facility] [address] [id number] [address] [place] [id number] Oct, [facility] [address] [facility] [id number] [address] [place] [address] Oct, [facility] [address] [facility] [id number] [address] [place] [address] Aug, [facility] [address] [facility] [id number] [address] [place] [address] Jul, [facility] [address] [facility] [id number] [address] [place] [address] Jul, [facility] [address] [facility] [id number] [address] [place] [address] Apr, [facility] [address] [id number] [address] [place] [address] Mar, Hot flashes due to menopause N95.1 ; Anxiety disorder, unspecified type F41.9 ; Low back pain M54.5 and Encounter for immunization Z23 [facility] [address] [id number] [address] [place] [address] Dec, Other chronic pain G89.29 an d Low back pain M54.5 [facility] [address] [id number] [address] [place] [address] October, [facility] [address] [id number] [address] [place] [phone] October, [facility] [address] [id number] [address] [place] [address] October, [facility] [address] [facility] [id number] [address] [place] [address] October, Other chronic pain G89.29 an d Chronic hepatitis C without hepatic coma B18.2 [facility] [address] [id number] [address] [place] [address] Aug, Bipolar disorder, in partial remission, most recent episode hypomanic F31.71 ; Attention deficit hyperactivity disorder (ADHD), combined type F90.2 and Anxiety disorder, unspecified type F41.9 [facility] [address] [id number] [address] [place] [address] Aug, [facility] [address] [id number] [address] [place] [address] Aug, Bipolar disorder, in partial remission, most recent episode hypomanic F31.71 [facility] [address] [id number] [address] [place] [address] Aug, [facility] [address] [facility] [id number] [address] [place] [address] Aug, Bipolar disorder, in partial remission, most recent episode hypomanic F31.71 [facility] [address] [id number] [address] [place] [address] Aug, Bipolar disorder, in partial remission, most recent episode hypomanic F31.71 ; Attention deficit hyperactivity disorder (ADHD), combined type F90.2 and Anxiety disorder, unspecified type F41.9 [facility] [address] [id number] [address] [place] [address] Aug, Low back pain M54.5 and Pain in left wrist M25.532 [facility] [address] [id number] [address] [place] [address] Aug, [facility] [address] [id number] [address] [place] [address] Jun, [facility] [address] [id number] [address] [place] [address] Apr, Bipolar disorder, in partial remission, most recent episode hypomanic F31.71 [facility] [address] [id number] [address] [place] [address] Apr, [facility] [address] [id number] [address] [place] [address] Apr, Bipolar disorder, in partial remission, most recent episode hypomanic F31.71 ; Attention deficit hyperactivity disorder (ADHD), combined type F90.2 ; Anxiety disorder, unspecified type F41.9 and Other detention (current) drug therapy Z79.899 [facility] [address] [id number] [address] [place] [address] Apr, Bipolar disorder, in partial remission, most recent episode hypomanic F31.71 [facility] [address] [id number] [address] [place] [address] Apr, Bipolar disorder, in partial remission, most recent episode hypomanic F31.71 [facility] [address] [id number] [address] [place] [address] Mar, [facility] [address] [id number] [address] [place] [address] Mar, Bipolar disorder, in partial remission, most recent episode hypomanic F31.71 ; Encounter for immunization Z23 and Low back pain M54.5 [facility] [address] [facility] [id number] [address] [place] [address] Mar, Bipolar disorder, in partial remission, most recent episode hypomanic F31.71 [facility] [address] [facility] [id number] [address] [place] [address] Mar, Bipolar disorder, in partial remission, most recent episode hypomanic F31.71 [facility] [address] [facility] [id number] [address] [place] [address] Jan, Bipolar disorder, in partial remission, most recent episode hypomanic F31.71 [facility] [address] [facility] [id number] [address] [place] [address] Jan, Bipolar disorder, in partial remission, most recent episode hypomanic F31.71 [facility] [address] [facility] [id number] [address] [place] [address] Dec, Bipolar disorder, in partial remission, most recent episode hypomanic F31.71 [facility] [address] [facility] [id number] [address] [place] [address] Dec, Bipolar disorder, in partial remission, most recent episode hypomanic F31.71 ; Attention deficit hyperactivity disorder (ADHD), combined type F90.2 ; Anxiety disorder, unspecified type F41.9 and Other detention (current) drug therapy Z79.899 [facility] [address] [facility] [id number] [address] [place] [address] Dec, Bipolar disorder, in partial remission, most recent episode hypomanic F31.71 [facility] [address] [facility] [id number] [address] [place] [address] Dec, Bipolar disorder, in partial remission, most recent episode hypomanic F31.71 [facility] [address] [facility] [id number] [address] [place] [address] October, Bipolar disorder, in partial remission, most recent episode hypomanic F31.71 [facility] [address] [id number] [address] [place] [address] October, [facility] [address] [id number] [address] [place] [address] October, [facility] [address] [id number] [address] [place] [address] Oct, Bipolar disorder, in partial remission, most recent episode hypomanic F31.71 ; Attention deficit hyperactivity disorder (ADHD), combined type F90.2 ; Anxiety disorder, unspecified type F41.9 and Encounter for drug screening Z02.83 [facility] [address] [id number] [address] [place] [address] Oct, Bipolar disorder, in partial remission, most recent episode hypomanic F31.71 [facility] [address] [facility] [id number] [address] [place] [address] Oct, Bipolar disorder, in partial remission, most recent episode hypomanic F31.71 [facility] [address] [id number] [address] [place] [address] Aug, Bipolar disorder, in partial remission, most recent episode hypomanic F31.71 [facility] [address] [facility] [id number] [address] [place] [address] Aug, Bipolar disorder, in partial remission, most recent episode hypomanic F31.71 [facility] [address] [facility] [id number] [address] [place] [address] Aug, Bipolar disorder, in partial remission, most recent episode hypomanic F31.71 [facility] [address] [facility] [id number] [address] [place] [address] Jul, Bipolar disorder, in partial remission, most recent episode hypomanic F31.71 ; Attention deficit hyperactivity disorder (ADHD), combined type F90.2 and Anxiety disorder, unspecified type F41.9 [facility] [address] [id number] [address] [place] [address] Jul, Bipolar disorder, in partial remission, most recent episode hypomanic F31.71 [facility] [address] [facility] [id number] [address] [place] [address] Jun, Bipolar disorder, in partial remission, most recent episode hypomanic F31.71 [facility] [address] [id number] [address] [place] [address] May, Bipolar disorder, in partial remission, most recent episode hypomanic F31.71 [facility] [address] [id number] [address] [place] [address] May, Bipolar disorder, in partial remission, most recent episode hypomanic F31.71 [facility] [address] [facility] [id number] [address] [place] [address] Apr, [facility] [address] [facility] [id number] [address] [place] [address] Apr, Bipolar disorder, in partial remission, most recent episode hypomanic F31.71 ; Attention deficit hyperactivity disorder (ADHD), combined type F90.2 ; Anxiety disorder, unspecified type F41.9 and Cannabis abuse F12.10 [facility] [address] [facility] [id number] [address] [place] [address] Apr, Attention deficit hyperactiv ity disorder (ADHD), combined type F90.2 [facility] [address] [facility] [id number] [address] [place] [address] Mar, Attention deficit hyperactiv ity disorder (ADHD), combined type F90.2 [facility] [address] [id number] [address] [place] [phone] 14 Mar, 2017 Anxiety disorder, unspecifie d type F41.9 [facility] [address] [facility] [id number] [address] [place] [phone] Jan, Attention deficit hyperactiv ity disorder (ADHD), combined type F90.2 [facility] [address] [facility] [id number] [address] [place] [address] Jan, Anxiety disorder, unspecifie d type F41.9 [facility] [address] [facility] [id number] [address] [place] [address] Jan, Other chronic pain G89.29 ; Chronic hepatitis C without hepatic coma B18.2 and Bipolar 1 disorder F31.9 [facility] [address] [id number] [address] [place] [address] Dec, Attention deficit hyperactiv ity disorder (ADHD), combined type F90.2 [facility] [address] [id number] [address] [place] [address] Dec, Bipolar disorder, in partial remission, most recent episode hypomanic F31.71 ; Attention deficit hyperactivity disorder (ADHD), combined type F90.2 and Anxiety disorder, unspecified type F41.9 [facility] [address] [facility] [id number] [address] [place] [address] Dec, Bipolar disorder, in partial remission, most recent episode hypomanic F31.71 ; Attention deficit hyperactivity disorder (ADHD), combined type F90.2 and Anxiety disorder, unspecified type F41.9 [facility] [address] [facility] [id number] [address] [place] [address] Dec, Bipolar 1 disorder F31.9 and Attention deficit R41.840 [facility] [address] [facility] [id number] [address] [place] [address] Oct, Other chronic pain G89.29 ; Alopecia L65.9 and Screening, lipid Z13.220 [facility] [address] [facility] [id number] [address] [place] [address] Oct, [facility] [address] [facility] [id number] [address] [place] [address] Aug, [facility] [address] [facility] [id number] [address] [place] [address] Aug, Eustachian tube dysfunction, right H69.81 ; Vertigo R42 and Other chronic pain G89.29 [facility] [address] [id number] [address] [place] [address] Aug, [facility] [address] [id number] [address] [place] [address] Jun, [facility] [address] [id number] [address] [place] [address] Jun, Low back pain M54.5 and Othe r chronic pain G89.29 [facility] [address] [id number] [address] [place] [address] Jun, [facility] [address] [id number] [address] [place] [address] May, [facility] [address] [id number] [address] [place] [address] Jan, [facility] [address] [id number] [address] [place] [address] Dec, [facility] [address] [id number] [address] [place] [address] Dec, [facility] [address] [id number] [address] [place] [address] Jun, [facility] [address] [facility] [id number] [address] [place] [address] Apr, Eustachian tube dysfunction, unspecified laterality H69.80 ; Hot flashes N95.1 and Encounter for immunization Z23 [facility] [address] [id number] [address] [place] [address] Jan, [facility] [address] [id number] [address] [place] [address] Jan, [facility] [address] [id number] [address] [place] [address] Jan, [facility] [address] [id number] [address] [place] [address] Jan, [facility] [address] [id number] [address] [place] [address] Jan, Encounter to establish care V65.8 ; Bipolar 1 disorder 296.7 ; Abdominal pain 789.00 ; Constipation 564.00 ; Hard of hearing 389.9 and Drug abuse 305.90 [facility] [address] [id number] [address] [place] [address] Dec, [facility] [address] [id number] [address] [place] [address] October, [facility] [address] [id number] [address] [place] [address] October, [facility] [address] [id number] [address] [place] [address] Oct, [facility] [address] [id number] [address] [place] [address] Oct, [facility] [address] [id number] [address] [place] [address] Oct, [facility] [address] [id number] [address] [place] [address] Aug, [facility] [address] [id number] [address] [place] [address] Aug, [facility] [address] [id number] [address] [place] [phone] Aug, [facility] [address] [id number] [address] [place] [address] Aug, [facility] [address] [id number] [address] [place] [phone] Aug, [facility] [address] [id number] [address] [place] [address] Aug, [facility] [address] [id number] [address] [place] [address] Aug, [facility] [address] [id number] [address] [place] [address], [place] [address] Aug, 2014 [facility] [address] [id number] [address] [place] [address], [place] [address] Aug, 2014 [facility] [address] [id number] [address] [place] [address], [place] [address] Aug, 2014 [facility] [address] [id number] [address] [place] [address], [place] [address] Aug, 2014 [facility] [address] [id number] [address] [place] [address], [place] [address] Aug, 2014 [facility] [address] [id number] [address] [place] [address], [place] [address] Aug, 2014 [facility] [address] [id number] [address] [place] [address], [place] [address] Aug, 2014 [facility] [address] [id number] [address] [place] [address], [place] [address] Aug, [facility] [address] [id number] [address] [place] [address], [place] [address] Jul, [facility] [address] [id number] [address] [place] [address], [place] [address] Jul, [facility] [address] [id number] [address] [place] [address], [place] [address] Jul, [facility] [address] [id number] [address] [place] [address], [place] [address] Jul, [facility] [address] [id number] [address] [place] [address], [place] [address] Jul, [facility] [address] [id number] [address] [place] [address], [place] [address] Jul, [facility] [address] [id number] [address] [place] [address], [place] [address] Jul, [facility] [address] [id number] [address] [place] [address], [place] [address] Jul, [facility] [address] [id number] [address] [place] [address], [place] [address] Jun, [facility] [address] [id number] [address] [place] [address], [place] [address] Jun, [facility] [address] [id number] [address] [place] [address], [place] [address] Jun, [facility] [address] [id number] [address] [place] [address], [place] [address] Jun, [facility] [address] [id number] [address] [place] [address], [place] [address] Jun, [facility] [address] [id number] [address] [place] [address], [place] [address] Jun, [facility] [address] [id number] [address] [place] [address], [place] [address] Jun, [facility] [address] [id number] [address] [place] [address], [place] [address] Jun, [facility] [address] [id number] [address] [place] [address], [place] [address] Jun, [facility] [address] [id number] [address] [place] [address], [place] [address] Jun, [facility] [address] [id number] [address] [place] [address], [place] [address] Jun, [facility] [address] [id number] [address] [place] [address], [place] [address] May, [facility] [address] [id number] [address] [place] [address], [place] [address] May, [facility] [address] [id number] [address] [place] [address], [place] [address] May, [facility] [address] [id number] [address] [place] [address], [place] [address] May, [facility] [address] [id number] [address] [place] [address], [place] [address] May, [facility] [address] [id number] [address] [place] [address], [place] [address] May, [facility] [address] [id number] [address] [place] [address], [place] [address] May, [facility] [address] [id number] [address] [place] [address], [place] [address] Apr, [facility] [address] [id number] [address] [place] [address], [place] [address] Apr, [facility] [address] [id number] [address] [place] [address], [place] [address] Apr, [facility] [address] [id number] [address] [place] [address], [place] [address] Apr, [facility] [address] [id number] [address] [place] [address], [place] [address] Apr, [facility] [address] [id number] [address] [place] [address], [place] [address] Apr, [facility] [address] [id number] [address] [place] [address], [place] [address] 29 Mar, 2014 [facility] [address] [id number] [address] [place] [address], [place] [address] 29 Mar, 2014 [facility] [address] [id number] [address] [place] [address], [place] [address] Mar, [facility] [address] [id number] [address] [place] [address], [place] [address] Mar, [facility] [address] [id number] [address] [place] [address], [place] [address] Mar, [facility] [address] [id number] [address] [place] [address], [place] [address] Mar, [facility] [address] [id number] [address] [place] [address], [place] [address] Jan, [facility] [address] [id number] [facility] [place] [address] Jan, [facility] [address] [id number] [facility] [place] [address] Jan, [facility] [address] [id number] [address] [place] [address], [place] [address] Jan, [facility] [address] [id number] [address] [place] [address], [place] [address] Dec, [facility] [address] [id number] [address] [place] [address], [place] [address] Dec, [facility] [address] [id number] [address] [place] [address], [place] [address] Dec, [facility] [address] [id number] [address] [place] [address], [place] [address] Dec, [facility] [address] [id number] [address] [place] [address], [place] [address] Dec, [facility] [address] [id number] [address] [place] [address], [place] [address] Dec, [facility] [address] [id number] [address] [place] [address], [place] [address] Dec, [facility] [address] [id number] [address] [place] [address], [place] [address] Dec, [facility] [address] [id number] [address] [place] [address], [place] [address] Dec, [facility] [address] [id number] [address] [place] [address], [place] [address] Dec, [facility] [address] [id number] [address] [place] [address], [place] [address] Dec, [facility] [address] [id number] [address] [place] [address], [place] [address] Dec, [facility] [address] [id number] [address] [place] [address], [place] [address] October, [facility] [address] [id number] [address] [place] [address], [place] [address] October, [facility] [address] [id number] [address] [place] [address], [place] [address] October, [facility] [address] [id number] [address] [place] [address], [place] [address] October, [facility] [address] [id number] [address] [place] [address], [place] [address] October, [facility] [address] [id number] [address] [place] [address], [place] [address] October, [facility] [address] [id number] [address] [place] [address], [place] [address] Oct, [facility] [address] [id number] [address] [place] [address], [place] [address] Oct, [facility] [address] [id number] [address] [place] [address], [place] [address] Oct, [facility] [address] [id number] [address] [place] [address], [place] [address] Oct, [facility] [address] [id number] [address] [place] [address], [place] [address] Oct, [facility] [address] [id number] [address] [place] [address], [place] [address] Oct, [facility] [address] [id number] [address] [place] [address], [place] [address] Oct, [facility] [address] [id number] [address] [place] [address], [place] [address] Oct, [facility] [address] [id number] [address] [place] [address], [place] [address] Oct, [facility] [address] [id number] [address] [place] [address], [place] [address] Oct, [facility] [address] [id number] [facility] [place] [place] [address] 08 Oct, 2013 [facility] [address] [id number] [address] [place] [address], [place] [address] 08 Oct, 2013 [facility] [address] [id number] [address] [place] [address], [place] [address] 15 Aug, 2013 [facility] [address] [id number] [address] [place] [address], [place] [address] 15 Aug, 2013 [facility] [address] [id number] [address] [place] [address], [place] [address] Aug, [facility] [address] [id number] [address] [place] [address], [place] [address] Aug, [facility] [address] [id number] [address] [place] [address], [place] [address] 05 Aug, 2013 [facility] [address] [id number] [address] [place] [address], [place] [address] 05 Aug, 2013 [facility] [address] [id number] [address] [place] [address], [place] [address] 04 Aug, 2013 [facility] [address] [id number] [address] [place] [address], [place] [address] Aug, [facility] [address] [id number] [address] [place] [address], [place] [address] Aug, [facility] [address] [id number] [address] [place] [address], [place] [address] Aug, [facility] [address] [id number] [address] [place] [address], [place] [address] Aug, [facility] [address] [id number] [address] [place] [address], [place] [address] Aug, [facility] [address] [id number] [address] [place] [address], [place] [address] Aug, [facility] [address] [id number] [address] [place] [address], [place] [address] 20 Aug, 2013 [facility] [address] [id number] [address] [place] [address], [place] [address] 14 Aug, 2013 [facility] [address] [id number] [address] [place] [address], [place] [address] 14 Aug, 2013 [facility] [address] [id number] [address] [place] [address], [place] [address] 14 Aug, 2013 [facility] [address] [id number] [address] [place] [address], [place] [address] 14 Aug, 2013 [facility] [address] [id number] [address] [place] [address], [place] [address] 07 Aug, 2013 [facility] [address] [id number] [address] [place] [address], [place] [address] 07 Aug, 2013 [facility] [address] [id number] [address] [place] [address], [place] [address] 06 Aug, 2013 [facility] [address] [id number] [address] [place] [address], [place] [address] 06 Aug, 2013 [facility] [address] [id number] [address] [place] [address], [place] [address] 04 Aug, 2013 [facility] [address] [id number] [address] [place] [address], [place] [address] 04 Aug, 2013 [facility] [address] [id number] [address] [place] [address], [place] [address] Aug, [facility] [address] [id number] [address] [place] [address], [place] [address] Jul, [facility] [address] [id number] [address] [place] [address], [place] [address] Jul, [facility] [address] [id number] [address] [place] [address], [place] [address] Jul, [facility] [address] [id number] [address] [place] [address], [place] [address] Jul, [facility] [address] [id number] [address] [place] [address], [place] [address] Jul, [facility] [address] [id number] [address] [place] [address], [place] [address] Jul, [facility] [address] [id number] [address] [place] [address], [place] [address] Jul, [facility] [address] [id number] [address] [place] [address], [place] [address] Jul, [facility] [address] [id number] [address] [place] [address], [place] [address] Jul, [facility] [address] [id number] [address] [place] [address], [place] [address] Jul, [facility] [address] [id number] [address] [place] [address], [place] [address] Jul, [facility] [address] [id number] [address] [place] [address], [place] [address] Jul, [facility] [address] [id number] [address] [place] [address], [place] [address] Jul, [facility] [address] [id number] [address] [place] [address], [place] [address] Jul, [facility] [address] [id number] [address] [place] [address], [place] [address] Jul, [facility] [address] [id number] [address] [place] [address], [place] [address] Jul, [facility] [address] [id number] [address] [place] [address], [place] [address] Jul, [facility] [address] [id number] [address] [place] [address], [place] [address] Jul, [facility] [address] [id number] [address] [place] [address], [place] [address] Jul, [facility] [address] [id number] [address] [place] [address], [place] [address] Jul, [facility] [address] [id number] [address] [place] [address], [place] [address] Jun, [facility] [address] [id number] [address] [place] [address], [place] [address] Jun, [facility] [address] [id number] [address] [place] [address], [place] [address] Jun, [facility] [address] [id number] [address] [place] [address], [place] [address] Jun, [facility] [address] [id number] [address] [place] [address], [place] [address] Jun, [facility] [address] [id number] [address] [place] [address], [place] [address] Jun, [facility] [address] [id number] [address] [place] [address], [place] [address] Jun, [facility] [address] [id number] [address] [place] [address], [place] [address] Jun, [facility] [address] [id number] [address] [place] [address], [place] [address] Jun, [facility] [address] [id number] [address] [place] [address], [place] [address] Jun, [facility] [address] [id number] [address] [place] [address], [place] [address] Jun, [facility] [address] [id number] [address] [place] [address], [place] [address] Jun, [facility] [address] [id number] [address] [place] [address], [place] [address] Jun, [facility] [address] [id number] [address] [place] [address], [place] [address] Jun, [facility] [address] [id number] [address] [place] [address], [place] [address] Jun, [facility] [address] [id number] [address] [place] [address], [place] [address] 18 Jun, 2013 [facility] [address] [id number] [address] [place] [address], [place] [address] 18 Jun, 2013 [facility] [address] [id number] [address] [place] [address], [place] [address] 17 Jun, 2013 [facility] [address] [id number] [address] [place] [address], [place] [address] 17 Jun, 2013 [facility] [address] [id number] [address] [place] [address], [place] [address] 13 Jun, 2013 [facility] [address] [id number] [address] [place] [address], [place] [address] 12 Jun, 2013 [facility] [address] [id number] [address] [place] [address], [place] [address] 12 Jun, 2013 [facility] [address] [id number] [address] [place] [address], [place] [address] 09 Jun, 2013 [facility] [address] [id number] [address] [place] [address], [place] [address] 05 Jun, 2013 [facility] [address] [id number] [address] [place] [address], [place] [address] 05 Jun, 2013 [facility] [address] [id number] [address] [place] [address], [place] [address] 04 Jun, 2013 [facility] [address] [id number] [address] [place] [address], [place] [address] 04 Jun, 2013 [facility] [address] [id number] [address] [place] [address], [place] [address] 17 May, 2013 [facility] [address] [id number] [address] [place] [address], [place] [address] 17 May, 2013 [facility] [address] [id number] [address] [place] [address], [place] [address] May, [facility] [address] [id number] [address] [place] [address], [place] [address] May, [facility] [address] [id number] [address] [place] [address], [place] [address] May, [facility] [address] [id number] [address] [place] [address], [place] [address] May, [facility] [address] [id number] [address] [place] [address], [place] [address] Apr, [facility] [address] [id number] [address] [place] [address], [place] [address] Apr, [facility] [address] [id number] [address] [place] [address], [place] [address] Apr, [facility] [address] [id number] [address] [place] [address], [place] [address] Apr, [facility] [address] [id number] [address] [place] [address], [place] [address] Apr, [facility] [address] [id number] [address] [place] [address], [place] [address] Apr, [facility] [address] [id number] [address] [place] [address], [place] [address] Apr, [facility] [address] [id number] [address] [place] [address] Apr, [facility] [address] [id number] [address] [place] [address] 26 Mar, 2013 [facility] [address] [id number] [address] [place] [address] 24 Sep, 2012 [facility] [address] [id number] [address] [place] [address], [place] [address] 17 Mar, 2013 [facility] [address] [id number] [address] [place] [address] 17 Mar, 2012 [facility] [address] [id number] [address] [place] [address] 11 Mar, 2012 [facility] [address] [id number] [address] [place] [address] 10 Mar, 2013 [facility] [address] [id number] [address] [place] [address], [place] [address] 05 Mar, 2013 [facility] [address] [id number] [address] [place] [address], [place] [address] 04 Mar, 2013 [facility] [address] [id number] [address] [place] [address], [place] [address] Jan, [facility] [address] [id number] [address] [place] [address], [place] [address] Jan, [facility] [address] [id number] [address] [place] [address], [place] [address] Jan, [facility] [address] [id number] [address] [place] [address], [place] [address] Jan, [facility] [address] [id number] [address] [place] [address], [place] [address] Jan, [facility] [address] [id number] [address] [place] [address], [place] [address] Jan, [facility] [address] [id number] [address] [place] [address], [place] [address] Dec, [facility] [address] [id number] [address] [place] [address], [place] [address] Dec, [facility] [address] [id number] [address] [place] [address], [place] [address] Dec, [facility] [address] [id number] [address] [place] [address], [place] [address] Dec, [facility] [address] [id number] [address] [place] [address], [place] [address] 18 Dec, 2012 [facility] [address] [id number] [address] [place] [address], [place] [address] 17 Dec, 2012 [facility] [address] [id number] [address] [place] [address], [place] [address] 16 Dec, 2012 [facility] [address] [id number] [address] [place] [address], [place] [address] 16 Dec, 2012 [facility] [address] [id number] [address] [place] [address], [place] [address] 15 Dec, 2012 [facility] [address] [id number] [address] [place] [address], [place] [address] 10 Dec, 2012 [facility] [address] [id number] [address] [place] [address], [place] [address] Dec, [facility] [address] [id number] [address] [place] [address], [place] [address] Dec, [facility] [address] [id number] [address] [place] [address], [place] [address] Dec, [facility] [address] [id number] [address] [place] [address], [place] [address] Dec, [facility] [address] [id number] [address] [place] [address], [place] [address] Dec, [facility] [address] [id number] [address] [place] [address], [place] [address] Dec, [facility] [address] [id number] [address] [place] [address], [place] [address] October, [facility] [address] [id number] [address] [place] [address], [place] [address] October, [facility] [address] [id number] [address] [place] [address], [place] [address] October, [facility] [address] [id number] [address] [place] [address], [place] [address] October, [facility] [address] [id number] [address] [place] [address], [place] [address] October, [facility] [address] [id number] [address] [place] [address], [place] [address] October, [facility] [address] [id number] [address] [place] [address], [place] [address] October, [facility] [address] [id number] [address] [place] [address], [place] [address] Oct, [facility] [address] [id number] [address] [place] [address], [place] [address] Oct, [facility] [address] [id number] [address] [place] [address], [place] [address] Oct, [facility] [address] [id number] [address] [place] [address], [place] [address] Oct, [facility] [address] [id number] [address] [place] [address], [place] [address] Oct, [facility] [address] [id number] [address] [place] [address], [place] [address] 18 Oct, 2012 [facility] [address] [id number] [address] [place] [address], [place] [address] Oct, [facility] [address] [id number] [address] [place] [address], [place] [address] 15 Oct, 2012 [facility] [address] [id number] [address] [place] [address], [place] [address] Oct, [facility] [address] [id number] [address] [place] [address], [place] [address] Oct, [facility] [address] [id number] [address] [place] [address], [place] [address] Oct, [facility] [address] [id number] [address] [place] [address], [place] [address] Oct, [facility] [address] [id number] [address] [place] [address], [place] [address] Aug, [facility] [address] [id number] [address] [place] [address], [place] [address] Aug, [facility] [address] [id number] [address] [place] [address], [place] [address] Aug, [facility] [address] [id number] [address] [place] [address], [place] [address] 06 Aug, 2012 [facility] [address] [id number] [address] [place] [address], [place] [address] 05 Aug, 2012 [facility] [address] [id number] [address] [place] [address], [place] [address] 05 Aug, 2012 [facility] [address] [id number] [address] [place] [address], [place] [address] 20 Aug, 2012 [facility] [address] [id number] [address] [place] [address], [place] [address] 14 Aug, 2012 [facility] [address] [id number] [address] [place] [address], [place] [address] 12 Aug, 2012 [facility] [address] [id number] [address] [place] [address], [place] [address] 11 Aug, 2012 [facility] [address] [id number] [address] [place] [address], [place] [address] 29 Jul, 2012 [facility] [address] [id number] [address] [place] [address], [place] [address] 15 Jul, 2012 [facility] [address] [id number] [address] [place] [address], [place] [address] 08 Jul, 2012 [facility] [address] [id number] [address] [place] [address], [place] [address] 20 Jun, 2012 [facility] [address] [id number] [address] [place] [address], [place] [address] 18 Jun, 2012 [facility] [address] [id number] [address] [place] [address], [place] [address] 18 Jun, 2012 [facility] [address] [id number] [address] [place] [address], [place] [address] 18 Jun, 2012 [facility] [address] [id number] [address] [place] [address], [place] [address] 18 Jun, 2012 [facility] [address] [id number] [address] [place] [address], [place] [address] 14 Jun, 2012 [facility] [address] [id number] [address] [place] [address], [place] [address] 14 Jun, 2012 [facility] [address] [id number] [address] [place] [address], [place] [address] 13 Jun, 2012 [facility] [address] [id number] [address] [place] [address], [place] [address] 13 Jun, 2012 [facility] [address] [id number] [address] [place] [address], [place] [address] 11 Jun, 2012 [facility] [address] [id number] [address] [place] [address], [place] [address] 11 Jun, 2012 [facility] [address] [id number] [address] [place] [address], [place] [address] 11 Jun, 2012 [facility] [address] [id number] [address] [place] [address], [place] [address] 11 Jun, 2012 [facility] [address] [id number] [address] [place] [address], [place] [address] 07 Jun, 2012 [facility] [address] [id number] [address] [place] [address], [place] [address] Jun, [facility] [address] [id number] [address] [place] [address], [place] [address] 06 Jun, 2012 [facility] [address] [id number] [address] [place] [address], [place] [address] Jun, [facility] [address] [id number] [address] [place] [address], [place] [address] Jun, [facility] [address] [id number] [address] [place] [address], [place] [address] Jun, [facility] [address] [id number] [address] [place] [address], [place] [address] 05 Jun, 2012 [facility] [address] [id number] [address] [place] [address], [place] [address] 05 Jun, 2012 [facility] [address] [id number] [address] [place] [address] Jun, [facility] [address] [id number] [address] [place] [address], [place] [address] Jun, [facility] [address] [id number] [address] [place] [id number] May, [facility] [address] [id number] [address] [place] [id number] May, [facility] [address] [id number] [address] [place] [phone] May, [facility] [address] [id number] [address] [place] [address], [place] [address] May, [facility] [address] [id number] [address] [place] [phone] May, [facility] [address] [id number] [address] [place] [phone] May, [facility] [address] [id number] [address] [place] [phone] May, [facility] [address] [id number] [address] [place] [phone] May, [facility] [address] [id number] [address] [place] [phone] Apr, [facility] [address] [id number] [address] [place] [phone] 30 Apr, 2012 [facility] [address] [id number] [address] [place] [id number] 29 Apr, 2012 [facility] [address] [id number] [address] [place] [phone] Apr, [facility] [address] [id number] [address] [place] [phone] Apr, [facility] [address] [id number] [address] [place] [phone] Apr, [facility] [address] [id number] [address] [place] [address], [place] [address] Apr, [facility] [address] [id number] [address] [place] [address], [place] [address] Apr, [facility] [address] [id number] [address] [place] [address], [place] [address] Apr, [facility] [address] [id number] [address] [place] [address], [place] [address] 08 Apr, 2012 [facility] [address] [id number] [address] [place] [address], [place] [address] Apr, [facility] [address] [id number] [address] [place] [address], [place] [address] Apr, [facility] [address] [id number] [address] [place] [address], [place] [address] 19 Mar, 2012 [facility] [address] [id number] [address] [place] [address], [place] [address] 18 Mar, 2012 [facility] [address] [id number] [address] [place] [address], [place] [address] Mar, [facility] [address] [id number] [address] [place] [address], [place] [address] Mar, [facility] [address] [id number] [address] [place] [id number] Mar, [facility] [address] [id number] [address] [place] [id number] Mar, [facility] [address] [id number] [address] [place] [phone] Mar, [facility] [address] [id number] [address] [place] [address], [place] [address] Jan, [facility] [address] [id number] [address] [place] [address], [place] [address] Jan, [facility] [address] [id number] [address] [place] [id number] Jan, [facility] [address] [id number] [address] [place] [address], [place] [id number] Jan, [facility] [address] [id number] [address] [place] [address], [place] [address] Jan, [facility] [address] [id number] [address] [place] [address], [place] [address] Jan, [facility] [address] [id number] [address] [place] [address], [place] [address] Jan, [facility] [address] [id number] [address] [place] [address], [place] [address] Jan, [facility] [address] [id number] [address] [place] [address], [place] [address] Jan, [facility] [address] [id number] [address] [place] [address], [place] [address] Jan, [facility] [address] [id number] [address] [place] [address], [place] [address] Jan, [facility] [address] [id number] [address] [place] [address], [place] [address] Dec, [facility] [address] [id number] [address] [place] [address], [place] [address] Dec, [facility] [address] [id number] [address] [place] [address], [place] [address] Dec, [facility] [address] [id number] [address] [place] [address], [place] [address] Dec, [facility] [address] [id number] [address] [place] [address], [place] [address] Dec, [facility] [address] [id number] [address] [place] [address], [place] [address] Dec, [facility] [address] [id number] [address] [place] [address], [place] [address] Dec, [facility] [address] [id number] [address] [place] [address], [place] [address] 17 Jan, 2012 [facility] [address] [id number] [address] [place] [address], [place] [address] 16 Jan, 2012 [facility] [address] [id number] [address] [place] [address], [place] [address] Dec, [facility] [address] [id number] [address] [place] [address], [place] [address] Dec, [facility] [address] [id number] [address] [place] [address], [place] [address] Dec, [facility] [address] [id number] [address] [place] [address], [place] [address] Dec, [facility] [address] [id number] [address] [place] [address], [place] [address] Dec, [facility] [address] [id number] [address] [place] [address], [place] [address] Dec, [facility] [address] [id number] [address] [place] [address], [place] [address] Dec, [facility] [address] [id number] [address] [place] [address], [place] [address] 15 Dec, 2011 [facility] [address] [id number] [address] [place] [address], [place] [address] Dec, [facility] [address] [id number] [address] [place] [address], [place] [address] 05 Dec, 2011 [facility] [address] [id number] [address] [place] [address], [place] [address] October, [facility] [address] [id number] [address] [place] [address], [place] [address] October, [facility] [address] [id number] [address] [place] [address], [place] [address] October, [facility] [address] [id number] [address] [place] [address], [place] [address] October, [facility] [address] [id number] [address] [place] [address], [place] [address] October, [facility] [address] [id number] [address] [place] [address], [place] [address] October, [facility] [address] [id number] [address] [place] [address], [place] [address] Oct, [facility] [address] [id number] [address] [place] [address], [place] [address] Oct, [facility] [address] [id number] [address] [place] [address], [place] [address] Oct, [facility] [address] [id number] [address] [place] [address], [place] [address] Oct, [facility] [address] [id number] [address] [place] [address], [place] [address] Oct, [facility] [address] [id number] [address] [place] [address], [place] [address] Oct, [facility] [address] [id number] [address] [place] [address], [place] [address] Oct, [facility] [address] [id number] [address] [place] [address], [place] [address] Aug, [facility] [address] [id number] [address] [place] [address], [place] [address] Aug, [facility] [address] [id number] [address] [place] [address], [place] [address] Aug, [facility] [address] [id number] [address] [place] [address], [place] [address] Aug, [facility] [address] [id number] [address] [place] [address], [place] [address] Aug, [facility] [address] [id number] [address] [place] [address], [place] [address] Aug, [facility] [address] [id number] [address] [place] [address], [place] [address] Aug, [facility] [address] [id number] [address] [place] [address], [place] [address] Aug, [facility] [address] [id number] [address] [place] [address], [place] [address] Aug, [facility] [address] [id number] [address] [place] [address], [place] [address] Jul, [facility] [address] [id number] [address] [place] [address], [place] [address] Jul, [facility] [address] [id number] [address] [place] [address], [place] [address] Jul, [facility] [address] [id number] [address] [place] [address], [place] [address] Jul, [facility] [address] [id number] [address] [place] [address], [place] [address] Jun, [facility] [address] [id number] [address] [place] [address], [place] [address] Jun, [facility] [address] [id number] [address] [place] [address], [place] [address] May, [facility] [address] [id number] [address] [place] [address], [place] [address] May, [facility] [address] [id number] [address] [place] [address], [place] [address] May, [facility] [address] [id number] [address] [place] [address], [place] [address] May, [facility] [address] [id number] [address] [place] [address], [place] [address] May, [facility] [address] [id number] [address] [place] [address], [place] [address] Apr, [facility] [address] [id number] [address] [place] [address], [place] [address] Apr, [facility] [address] [id number] [address] [place] [phone] Apr, [facility] [address] [id number] [address] [place] [id number] Jan, [facility] [address] [id number] [address] [place] [id number] Dec, [facility] [address] [id number] [address] [place] [id number] October, [facility] [address] [id number] [address] [place] [id number] Jun, [facility] [address] [id number] [address] [place] [id number] Apr, [facility] [address] [id number] [address] [place] [phone] Apr, [facility] [address] [facility] [id number] [address] [place] [phone] Apr, [facility] [address] [id number] [address] [place] [id number] Jun, IMMUNIZATIONS No Known Immunizations SOCIAL HISTORY [...]
--- OUTSIDE RECORDS SUMMARY | 2020-01-25 13:17 | XMS REPORT ---
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 Name Role Phone Clovis ANEUDY Unavailable PROBLEMS Type Condition ICD9-CM Code [id number] Code Onset Dates Condition S tatus SNOMED Code Problem Chronic hepatitis C without hepatic coma B18.2 Active 424909136 Problem Cannabis abuse F12.10 Active 42764 009 Problem Bipolar 1 disorder F31.9 Active 3 [id number] Problem Attention deficit hyperactivity disorder (ADHD), combi luciano type F90.2 Active 58782454 Problem Attention deficit R41.840 Active 76 103020 Problem Hot flashes due to menopause N95.1 A ctive 448906725 Problem H/O laminectomy Z98.89 Active 1616 30795 Problem Other chronic pain G89.29 Active 8 9257346 Problem Anxiety disorder, unspecified type F41.9 Active 322977867 Problem Bipolar disorder, in partial remission, most rec ent episode hypomanic F31.71 Active [id number] ALLERGIES No Information ENCOUNTERS Encounter Location Date Diagnosis [facility] [address] [id number] [address] [place] [id number] Oct, [facility] [address] [facility] [place] [place] [id number] [address] [place] [phone] Oct, [facility] [address] [facility] [place] [id number] [address] [place] [phone] Aug, [facility] [address] [facility] [place] [id number] [address] [place] [id number] Jul, [facility] [address] [facility] [place] [id number] [address] [place] [id number] Jul, [facility] [address] [facility] [place] [id number] [address] [place] [phone] Apr, [facility] [address] [id number] [address] [place] [phone] Mar, Hot flashes due to menopause N95.1 ; Anxiety disorder, unspecified type F41.9 ; Low back pain M54.5 and Encounter for immunization Z23 [facility] [address] [id number] [address] [place] [phone] Dec, Other chronic pain G89.29 an d Low back pain M54.5 [facility] [address] [id number] [address] [place] [phone] October, [facility] [address] [id number] [address] [place] [phone] October, [facility] [address] [id number] [address] [place] [phone] October, [facility] [address] [facility] [place] [id number] [address] [place] [phone] October, Other chronic pain G89.29 an d Chronic hepatitis C without hepatic coma B18.2 [facility] [address] [id number] [address] [place] [phone] Aug, Bipolar disorder, in partial remission, most recent episode hypomanic F31.71 ; Attention deficit hyperactivity disorder (ADHD), combined type F90.2 and Anxiety disorder, unspecified type F41.9 [facility] [address] [id number] [address] [place] [phone] Aug, [facility] [address] [id number] [address] [place] [id number] Aug, Bipolar disorder, in partial remission, most recent episode hypomanic F31.71 [facility] [address] [facility] [place] [id number] [address] [place] [phone] Aug, [facility] [address] [facility] [place] [id number] [address] [place] [address] Aug, Bipolar disorder, in partial remission, most recent episode hypomanic F31.71 [facility] [address] [id number] [address] [place] [phone] Aug, Bipolar disorder, in partial remission, most recent episode hypomanic F31.71 ; Attention deficit hyperactivity disorder (ADHD), combined type F90.2 and Anxiety disorder, unspecified type F41.9 [facility] [address] [id number] [address] [place] [phone] Aug, Low back pain M54.5 and Pain in left wrist M25.532 [facility] [address] [id number] [address] [place] [id number] Aug, [facility] [address] [id number] [address] [place] [phone] Jun, [facility] [address] [id number] [address] [place] [id number] Apr, Bipolar disorder, in partial remission, most recent episode hypomanic F31.71 [facility] [address] [id number] [address] [place] [id number] Apr, [facility] [address] [id number] [address] [place] [id number] Apr, Bipolar disorder, in partial remission, most recent episode hypomanic F31.71 ; Attention deficit hyperactivity disorder (ADHD), combined type F90.2 ; Anxiety disorder, unspecified type F41.9 and Other correction (current) drug therapy Z79.899 [facility] [address] [id number] [address] [place] [phone] Apr, Bipolar disorder, in partial remission, most recent episode hypomanic F31.71 [facility] [address] [id number] [address] [place] [id number] Apr, Bipolar disorder, in partial remission, most recent episode hypomanic F31.71 [facility] [address] [id number] [address] [place] [phone] Mar, [facility] [address] [id number] [address] [place] [phone] Mar, Bipolar disorder, in partial remission, most recent episode hypomanic F31.71 ; Encounter for immunization Z23 and Low back pain M54.5 [facility] [address] [id number] [address] [place] [id number] 17 Mar, 2018 Bipolar disorder, in partial remission, most recent episode hypomanic F31.71 [facility] [address] [id number] [address] [place] [phone] Mar, Bipolar disorder, in partial remission, most recent episode hypomanic F31.71 [facility] [address] [id number] [address] [place] [id number] Jan, Bipolar disorder, in partial remission, most recent episode hypomanic F31.71 [facility] [address] [id number] [address] [place] [phone] Jan, Bipolar disorder, in partial remission, most recent episode hypomanic F31.71 [facility] [address] [id number] [address] [place] [address] Dec, Bipolar disorder, in partial remission, most recent episode hypomanic F31.71 [facility] [address] [facility] [place] [id number] [address] [place] [address] Dec, Bipolar disorder, in partial remission, most recent episode hypomanic F31.71 ; Attention deficit hyperactivity disorder (ADHD), combined type F90.2 ; Anxiety disorder, unspecified type F41.9 and Other correction (current) drug therapy Z79.899 [facility] [address] [id number] [address] [place] [id number] Dec, Bipolar disorder, in partial remission, most recent episode hypomanic F31.71 [facility] [address] [facility] [place] [id number] [address] [place] [phone] Dec, Bipolar disorder, in partial remission, most recent episode hypomanic F31.71 [facility] [address] [facility] [place] [id number] [address] [place] [phone] October, Bipolar disorder, in partial remission, most recent episode hypomanic F31.71 [facility] [address] [id number] [address] [place] [id number] October, [facility] [address] [id number] [address] [place] [phone] October, [facility] [address] [id number] [address] [place] [id number] Oct, Bipolar disorder, in partial remission, most recent episode hypomanic F31.71 ; Attention deficit hyperactivity disorder (ADHD), combined type F90.2 ; Anxiety disorder, unspecified type F41.9 and Encounter for drug screening Z02.83 [facility] [address] [id number] [address] [place] [id number] Oct, Bipolar disorder, in partial remission, most recent episode hypomanic F31.71 [facility] [address] [id number] [address] [place] [phone] Oct, Bipolar disorder, in partial remission, most recent episode hypomanic F31.71 [facility] [address] [facility] [place] [id number] [address] [place] [phone] Aug, Bipolar disorder, in partial remission, most recent episode hypomanic F31.71 [facility] [address] [facility] [place] [id number] [address] [place] [phone] Aug, Bipolar disorder, in partial remission, most recent episode hypomanic F31.71 [facility] [address] [id number] [address] [place] [phone] Aug, Bipolar disorder, in partial remission, most recent episode hypomanic F31.71 [facility] [address] [facility] [place] [id number] [address] [place] [phone] Jul, Bipolar disorder, in partial remission, most recent episode hypomanic F31.71 ; Attention deficit hyperactivity disorder (ADHD), combined type F90.2 and Anxiety disorder, unspecified type F41.9 [facility] [address] [id number] [address] [place] [id number] Jul, Bipolar disorder, in partial remission, most recent episode hypomanic F31.71 [facility] [address] [id number] [address] [place] [phone] Jun, Bipolar disorder, in partial remission, most recent episode hypomanic F31.71 [facility] [address] [id number] [address] [place] [address] May, Bipolar disorder, in partial remission, most recent episode hypomanic F31.71 [facility] [address] [id number] [address] [place] [phone] May, Bipolar disorder, in partial remission, most recent episode hypomanic F31.71 [facility] [address] [facility] [place] [id number] [address] [place] [phone] Apr, [facility] [address] [facility] [place] [id number] [address] [place] [id number] Apr, Bipolar disorder, in partial remission, most recent episode hypomanic F31.71 ; Attention deficit hyperactivity disorder (ADHD), combined type F90.2 ; Anxiety disorder, unspecified type F41.9 and Cannabis abuse F12.10 [facility] [address] [facility] [place] [id number] [address] [place] [phone] Apr, Attention deficit hyperactiv ity disorder (ADHD), combined type F90.2 [facility] [address] [id number] [address] [place] [phone] Mar, Attention deficit hyperactiv ity disorder (ADHD), combined type F90.2 [facility] [address] [id number] [address] [place] [id number] 14 Mar, 2017 Anxiety disorder, unspecifie d type F41.9 [facility] [address] [facility] [place] [id number] [address] [place] [phone] Jan, Attention deficit hyperactiv ity disorder (ADHD), combined type F90.2 [facility] [address] [place] [id number] [address] [place] [phone] Jan, Anxiety disorder, unspecifie d type F41.9 [facility] [address] [id number] [address] [place] [id number] Jan, Other chronic pain G89.29 ; Chronic hepatitis C without hepatic coma B18.2 and Bipolar 1 disorder F31.9 [facility] [address] [id number] [address] [place] [id number] Dec, Attention deficit hyperactiv ity disorder (ADHD), combined type F90.2 [facility] [address] [id number] [address] [place] [address] Dec, Bipolar disorder, in partial remission, most recent episode hypomanic F31.71 ; Attention deficit hyperactivity disorder (ADHD), combined type F90.2 and Anxiety disorder, unspecified type F41.9 [place] [address] [place] [id number] [place] [address] Dec, Bipolar disorder, in partial remission, most recent episode hypomanic F31.71 ; Attention deficit hyperactivity disorder (ADHD), combined type F90.2 and Anxiety disorder, unspecified type F41.9 [place] [address] [place] [id number] [place] [phone] Dec, Bipolar 1 disorder F31.9 and Attention deficit R41.840 [place] [address] [place] [id number] [address] [place] [address] Oct, Other chronic pain G89.29 ; Alopecia L65.9 and Screening, lipid Z13.220 [facility] [address] [place] [id number] [address] [place] [phone] Oct, [place] [address] [place] [id number] [place] [phone] Aug, [place] [address] [place] [id number] [place] [address] Aug, Eustachian tube dysfunction, right H69.81 ; Vertigo R42 and Other chronic pain G89.29 [facility] [address] [id number] [address] [place] [phone] Aug, [facility] [address] [id number] [address] [place] [phone] Jun, [facility] [address] [id number] [address] [place] [id number] Jun, Low back pain M54.5 and Othe r chronic pain G89.29 [facility] [address] [id number] [address] [place] [phone] Jun, [facility] [address] [id number] [address] [place] [phone] May, [facility] [address] [id number] [address] [place] [phone] Jan, [facility] [address] [id number] [address] [place] [id number] Dec, [facility] [address] [id number] [address] [place] [phone] Dec, [facility] [address] [id number] [address] [place] [phone] Jun, [facility] [address] [facility] [place] [id number] [address] [place] [phone] Apr, Eustachian tube dysfunction, unspecified laterality H69.80 ; Hot flashes N95.1 and Encounter for immunization Z23 [facility] [address] [id number] [address] [place] [phone] Jan, [facility] [address] [id number] [address] [place] [phone] Jan, [facility] [address] [id number] [address] [place] [id number] Jan, [facility] [address] [id number] [address] [place] [id number] Jan, [facility] [address] [id number] [address] [place] [address] Jan, Encounter to establish care V65.8 ; Bipolar 1 disorder 296.7 ; Abdominal pain 789.00 ; Constipation 564.00 ; Hard of hearing 389.9 and Drug abuse 305.90 [facility] [address] [id number] [address] [place] [id number] Dec, [facility] [address] [id number] [address] [place] [phone] October, [facility] [address] [id number] [address] [place] [phone] October, [facility] [address] [id number] [address] [place] [id number] Oct, [facility] [address] [id number] [address] [place] [phone] Oct, [facility] [address] [id number] [address] [place] [id number] Oct, [facility] [address] [id number] [address] [place] [phone] Aug, [facility] [address] [id number] [address] [place] [id number] Aug, [facility] [address] [id number] [address] [place] [id number] Aug, [facility] [address] [id number] [address] [place] [id number] Aug, [facility] [address] [id number] [address] [place] [phone] Aug, [facility] [address] [id number] [address] [place] [phone] Aug, [facility] [address] [id number] [address] [place] [id number] Aug, [facility] [address] [id number] [address] [place] [address], [place] [address] Aug, 2014 [facility] [address] [id number] [address] [place] [address], [place] [address] Aug, 2014 [facility] [address] [id number] [address] [place] [address], [place] [address] Aug, 2014 [facility] [address] [id number] [address] [place] [address], [place] [address] Aug, 2014 [facility] [address] [id number] [address] [place] [address], [place] [address] Aug, 2014 [facility] [address] [id number] [address] [place] [address], [place] [address] Aug, 2014 [facility] [address] [id number] [address] [place] [address], [place] [id number] Aug, 2014 [facility] [address] [id number] [address] [place] [address], [place] [address] Aug, [facility] [address] [id number] [address] [place] [address], [place] [address] Jul, [facility] [address] [id number] [address] [place] [address], [place] [address] Jul, [facility] [address] [id number] [address] [place] [address], [place] [address] Jul, [facility] [address] [id number] [address] [place] [address], [place] [address] Jul, [facility] [address] [id number] [address] [place] [address], [place] [address] Jul, [facility] [address] [id number] [address] [place] [address], [place] [address] Jul, [facility] [address] [id number] [address] [place] [address], [place] [id number] Jul, [facility] [address] [id number] [address] [place] [address], [place] [address] Jul, [facility] [address] [id number] [address] [place] [address], [place] [address] Jun, [facility] [address] [id number] [address] [place] [address], [place] [address] Jun, [facility] [address] [id number] [address] [place] [address], [place] [address] Jun, [facility] [address] [id number] [address] [place] [address], [place] [address] Jun, [facility] [address] [id number] [address] [place] [address], [place] [address] Jun, [facility] [address] [id number] [address] [place] [address], [place] [address] Jun, [facility] [address] [id number] [address] [place] [address], [place] [address] Jun, [facility] [address] [id number] [address] [place] [address], [place] [address] Jun, [facility] [address] [id number] [address] [place] [address], [place] [address] Jun, [facility] [address] [id number] [address] [place] [address], [place] [address] Jun, [facility] [address] [id number] [address] [place] [address], [place] [address] Jun, [facility] [address] [id number] [address] [place] [address], [place] [address] May, [facility] [address] [id number] [address] [place] [address], [place] [address] May, [facility] [address] [id number] [address] [place] [address], [place] [address] May, [facility] [address] [id number] [address] [place] [address], [place] [address] May, [facility] [address] [id number] [address] [place] [address], [place] [address] May, [facility] [address] [id number] [address] [place] [address], [place] [address] May, [facility] [address] [id number] [address] [place] [address], [place] [address] May, [facility] [address] [id number] [address] [place] [address], [place] [address] Apr, [facility] [address] [id number] [address] [place] [address], [place] [address] Apr, [facility] [address] [id number] [address] [place] [address], [place] [address] Apr, [facility] [address] [id number] [address] [place] [address], [place] [address] Apr, [facility] [address] [id number] [address] [place] [address], [place] [id number] Apr, [facility] [address] [id number] [address] [place] [address], [place] [address] Apr, [facility] [address] [id number] [address] [place] [address], [place] [address] Mar, [facility] [address] [id number] [address] [place] [address], [place] [id number] 29 Mar, 2014 [facility] [address] [id number] [address] [place] [address], [place] [address] Mar, [facility] [address] [id number] [address] [place] [address], [place] [address] Mar, [facility] [address] [id number] [address] [place] [address], [place] [id number] Mar, [facility] [address] [id number] [address] [place] [address], [place] [address] Mar, [facility] [address] [id number] [address] [place] [address], [place] [address] Jan, [facility] [address] [id number] [address] [place] [address], [place] [address] Jan, [facility] [address] [id number] [address] [place] [address], [place] [address] Jan, [facility] [address] [id number] [address] [place] [address], [place] [id number] Jan, [facility] [address] [id number] [address] [place] [address], [place] [id number] Dec, [facility] [address] [id number] [address] [place] [address], [place] [address] Dec, [facility] [address] [id number] [address] [place] [address], [place] [address] Dec, [facility] [address] [id number] [address] [place] [address], [place] [id number] Dec, [facility] [address] [id number] [address] [place] [address], [place] [address] Dec, [facility] [address] [id number] [address] [place] [address], [place] [address] Dec, [facility] [address] [id number] [address] [place] [address], [place] [address] Dec, [facility] [address] [id number] [address] [place] [address], [place] [address] Dec, [facility] [address] [id number] [address] [place] [address], [place] [id number] Dec, [facility] [address] [id number] [address] [place] [address], [place] [address] Dec, [facility] [address] [id number] [address] [place] [address], [place] [address] Dec, [facility] [address] [id number] [address] [place] [address], [place] [address] Dec, [facility] [address] [id number] [address] [place] [address], [place] [address] October, [facility] [address] [id number] [address] [place] [address], [place] [address] October, [facility] [address] [id number] [address] [place] [address], [place] [address] October, [facility] [address] [id number] [address] [place] [address], [place] [address] October, [facility] [address] [id number] [address] [place] [address], [place] [address] October, [facility] [address] [id number] [address] [place] [address], [place] [address] October, [facility] [address] [id number] [address] [place] [address], [place] [address] Oct, [facility] [address] [id number] [address] [place] [address], [place] [address] Oct, [facility] [address] [id number] [address] [place] [address], [place] [address] Oct, [facility] [address] [id number] [address] [place] [address], [place] [address] Oct, [facility] [address] [id number] [address] [place] [address], [place] [address] Oct, [facility] [address] [id number] [address] [place] [address], [place] [address] Oct, [facility] [address] [id number] [address] [place] [address], [place] [address] Oct, [facility] [address] [id number] [address] [place] [address], [place] [address] Oct, [facility] [address] [id number] [address] [place] [address], [place] [address] Oct, [facility] [address] [id number] [address] [place] [address], [place] [address] Oct, [facility] [address] [id number] [facility] [place] [address] 08 Oct, 2013 [facility] [address] [id number] [facility] [place] [address] 08 Oct, 2013 [facility] [address] [id number] [facility] [place] [address] 15 Aug, 2013 [facility] [address] [id number] [address] [place] [address], [place] [address] 15 Aug, 2013 [facility] [address] [id number] [address] [place] [address], [place] [address] Aug, [facility] [address] [id number] [address] [place] [address], [place] [address] Aug, [facility] [address] [id number] [address] [place] [address], [place] [address] Aug, [facility] [address] [id number] [address] [place] [address], [place] [address] Aug, [facility] [address] [id number] [address] [place] [address], [place] [address] Aug, [facility] [address] [id number] [address] [place] [address], [place] [address] Aug, [facility] [address] [id number] [address] [place] [address], [place] [address] Aug, [facility] [address] [id number] [address] [place] [address], [place] [address] Aug, [facility] [address] [id number] [address] [place] [address], [place] [address] Aug, [facility] [address] [id number] [address] [place] [address], [place] [address] Aug, [facility] [address] [id number] [address] [place] [address], [place] [address] Aug, [facility] [address] [id number] [address] [place] [address], [place] [address] 20 Aug, 2013 [facility] [address] [id number] [address] [place] [address], [place] [address] 14 Aug, 2013 [facility] [address] [id number] [address] [place] [address], [place] [address] 14 Aug, 2013 [facility] [address] [id number] [address] [place] [address], [place] [address] 14 Aug, 2013 [facility] [address] [id number] [address] [place] [address], [place] [address] 14 Aug, 2013 [facility] [address] [id number] [address] [place] [address], [place] [address] 07 Aug, 2013 [facility] [address] [id number] [address] [place] [address], [place] [address] 07 Aug, 2013 [facility] [address] [id number] [address] [place] [address], [place] [address] 06 Aug, 2013 [facility] [address] [id number] [address] [place] [address], [place] [address] 06 Aug, 2013 [facility] [address] [id number] [address] [place] [address], [place] [address] 04 Aug, 2013 [facility] [address] [id number] [address] [place] [address], [place] [address] 04 Aug, 2013 [facility] [address] [id number] [address] [place] [address], [place] [address] Aug, [facility] [address] [id number] [address] [place] [address], [place] [address] Jul, [facility] [address] [id number] [address] [place] [address], [place] [address] Jul, [facility] [address] [id number] [address] [place] [address], [place] [address] Jul, [facility] [address] [id number] [address] [place] [address], [place] [address] Jul, [facility] [address] [id number] [address] [place] [address], [place] [address] Jul, [facility] [address] [id number] [address] [place] [address], [place] [address] Jul, [facility] [address] [id number] [address] [place] [address], [place] [address] Jul, [facility] [address] [id number] [address] [place] [address], [place] [address] Jul, [facility] [address] [id number] [address] [place] [address], [place] [address] Jul, [facility] [address] [id number] [address] [place] [address], [place] [address] Jul, [facility] [address] [id number] [address] [place] [address], [place] [address] Jul, [facility] [address] [id number] [address] [place] [address], [place] [address] Jul, [facility] [address] [id number] [address] [place] [address], [place] [address] Jul, [facility] [address] [id number] [address] [place] [address], [place] [address] Jul, [facility] [address] [id number] [address] [place] [address], [place] [address] Jul, [facility] [address] [id number] [address] [place] [address], [place] [address] Jul, [facility] [address] [id number] [address] [place] [address], [place] [address] Jul, [facility] [address] [id number] [address] [place] [address], [place] [address] Jul, [facility] [address] [id number] [address] [place] [address], [place] [address] Jul, [facility] [address] [id number] [address] [place] [address], [place] [address] Jul, [facility] [address] [id number] [address] [place] [address], [place] [address] Jun, [facility] [address] [id number] [address] [place] [address], [place] [address] Jun, [facility] [address] [id number] [address] [place] [address], [place] [address] Jun, [facility] [address] [id number] [address] [place] [address], [place] [address] Jun, [facility] [address] [id number] [address] [place] [address], [place] [address] Jun, [facility] [address] [id number] [address] [place] [address], [place] [address] Jun, [facility] [address] [id number] [address] [place] [address], [place] [address] Jun, [facility] [address] [id number] [address] [place] [address], [place] [address] Jun, [facility] [address] [id number] [address] [place] [address], [place] [address] Jun, [facility] [address] [id number] [address] [place] [address], [place] [address] Jun, [facility] [address] [id number] [address] [place] [address], [place] [address] Jun, [facility] [address] [id number] [address] [place] [address], [place] [address] Jun, [facility] [address] [id number] [address] [place] [address], [place] [address] Jun, [facility] [address] [id number] [address] [place] [address], [place] [address] Jun, [facility] [address] [id number] [address] [place] [address], [place] [address] Jun, [facility] [address] [id number] [address] [place] [address], [place] [address] 18 Jun, 2013 [facility] [address] [id number] [address] [place] [address], [place] [address] 18 Jun, 2013 [facility] [address] [id number] [address] [place] [address], [place] [address] 17 Jun, 2013 [facility] [address] [id number] [address] [place] [address], [place] [address] 17 Jun, 2013 [facility] [address] [id number] [address] [place] [address], [place] [address] 13 Jun, 2013 [facility] [address] [id number] [address] [place] [address], [place] [address] Jun, [facility] [address] [id number] [address] [place] [address], [place] [address] Jun, [facility] [address] [id number] [address] [place] [address], [place] [address] Jun, [facility] [address] [id number] [address] [place] [address], [place] [address] 05 Jun, 2013 [facility] [address] [id number] [address] [place] [address], [place] [address] 05 Jun, 2013 [facility] [address] [id number] [address] [place] [address], [place] [address] 04 Jun, 2013 [facility] [address] [id number] [address] [place] [address], [place] [address] 04 Jun, 2013 [facility] [address] [id number] [address] [place] [address], [place] [address] 17 May, 2013 [facility] [address] [id number] [address] [place] [address], [place] [address] 17 May, 2013 [facility] [address] [id number] [address] [place] [address], [place] [address] May, [facility] [address] [id number] [address] [place] [address] [address] May, [facility] [address] [id number] [address] [place] [address], [place] [address] May, [facility] [address] [id number] [address] [place] [address], [place] [address] May, [facility] [address] [id number] [address] [place] [address], [place] [address] Apr, [facility] [address] [id number] [address] [place] [address], [place] [address] Apr, [facility] [address] [id number] [address] [place] [address], [place] [address] Apr, [facility] [address] [id number] [address] [place] [address], [place] [address] Apr, [facility] [address] [id number] [address] [place] [address], [place] [address] Apr, [facility] [address] [id number] [address] [place] [address], [place] [address] Apr, [facility] [address] [id number] [address] [place] [address], [place] [address] Apr, [facility] [address] [id number] [address] [place] [address] Apr, [facility] [address] [id number] [address] [place] [address] 26 Mar, 2012 [facility] [address] [id number] [address] [place] [address] 24 Sep, 2012 [facility] [address] [id number] [address] [place] [address], [place] [address] 17 Sep2012 [facility] [address] [id number] [address] [place] [address] 17 Sep, 2012 [facility] [address] [id number] [address] [place] [address], [place] [address] 11 Mar, 2013 [facility] [address] [id number] [facility] [place] [address] 10 Mar, 2013 [facility] [address] [id number] [address] [place] [address], [place] [address] 05 Mar, 2013 [facility] [address] [id number] [address] [place] [address], [place] [address] 04 Mar, 2013 [facility] [address] [id number] [address] [place] [address], [place] [address] 20 Jan, 2013 [facility] [address] [id number] [address] [place] [address], [place] [address] Jan, [facility] [address] [id number] [address] [place] [address], [place] [address] 14 Jan, 2013 [facility] [address] [id number] [address] [place] [address], [place] [address] Jan, [facility] [address] [id number] [address] [place] [address], [place] [address] Jan, [facility] [address] [id number] [address] [place] [address], [place] [address] Jan, [facility] [address] [id number] [address] [place] [address], [place] [address] Dec, [facility] [address] [id number] [address] [place] [address], [place] [address] Dec, [facility] [address] [id number] [address] [place] [address], [place] [address] Dec, [facility] [address] [id number] [address] [place] [address], [place] [address] Dec, [facility] [address] [id number] [address] [place] [address], [place] [address] 18 Dec, 2012 [facility] [address] [id number] [address] [place] [address], [place] [address] 17 Dec, 2012 [facility] [address] [id number] [address] [place] [address], [place] [address] 16 Dec, 2012 [facility] [address] [id number] [address] [place] [address], [place] [address] 16 Dec, 2012 [facility] [address] [id number] [address] [place] [address], [place] [address] 15 Dec, 2012 [facility] [address] [id number] [address] [place] [address], [place] [address] 10 Dec, 2012 [facility] [address] [id number] [address] [place] [address], [place] [address] Dec, [facility] [address] [id number] [address] [place] [address], [place] [address] Dec, [facility] [address] [id number] [address] [place] [address], [place] [address] Dec, [facility] [address] [id number] [address] [place] [address], [place] [address] Dec, [facility] [address] [id number] [address] [place] [address], [place] [address] Dec, [facility] [address] [id number] [address] [place] [address], [place] [address] Dec, [facility] [address] [id number] [address] [place] [address], [place] [address] October, [facility] [address] [id number] [address] [place] [address], [place] [address] October, [facility] [address] [id number] [address] [place] [address], [place] [address] October, [facility] [address] [id number] [address] [place] [address], [place] [address] October, [facility] [address] [id number] [address] [place] [address], [place] [address] October, [facility] [address] [id number] [address] [place] [address], [place] [address] October, [facility] [address] [id number] [address] [place] [address], [place] [address] October, [facility] [address] [id number] [address] [place] [address], [place] [address] Oct, [facility] [address] [id number] [address] [place] [address], [place] [address] Oct, [facility] [address] [id number] [address] [place] [address], [place] [address] Oct, [facility] [address] [id number] [address] [place] [address], [place] [address] Oct, [facility] [address] [id number] [address] [place] [address], [place] [address] Oct, [facility] [address] [id number] [address] [place] [address], [place] [address] Oct, [facility] [address] [id number] [address] [place] [address], [place] [address] Oct, [facility] [address] [id number] [address] [place] [address], [place] [address] 15 Oct, 2012 [facility] [address] [id number] [address] [place] [address], [place] [address] Oct, [facility] [address] [id number] [address] [place] [address], [place] [address] Oct, [facility] [address] [id number] [address] [place] [address], [place] [address] Oct, [facility] [address] [id number] [address] [place] [address], [place] [address] Oct, [facility] [address] [id number] [address] [place] [address], [place] [address] Aug, [facility] [address] [id number] [address] [place] [address], [place] [address] Aug, [facility] [address] [id number] [address] [place] [address], [place] [address] Aug, [facility] [address] [id number] [address] [place] [address], [place] [address] 06 Aug, 2012 [facility] [address] [id number] [address] [place] [address], [place] [address] 05 Aug, 2012 [facility] [address] [id number] [address] [place] [address], [place] [id number] 05 Aug, 2012 [facility] [address] [id number] [address] [place] [address], [place] [address] 20 Aug, 2012 [facility] [address] [id number] [address] [place] [address], [place] [address] 14 Aug, 2012 [facility] [address] [id number] [address] [place] [address], [place] [address] 12 Aug, 2012 [facility] [address] [id number] [address] [place] [address], [place] [address] Aug, [facility] [address] [id number] [address] [place] [address], [place] [address] 29 Jul, 2012 [facility] [address] [id number] [address] [place] [address], [place] [address] 15 Jul, 2012 [facility] [address] [id number] [address] [place] [address], [place] [address] 08 Jul, 2012 [facility] [address] [id number] [address] [place] [address], [place] [address] 20 Jun, 2012 [facility] [address] [id number] [address] [place] [address], [place] [address] 18 Jun, 2012 [facility] [address] [id number] [address] [place] [address], [place] [id number] 18 Jun, 2012 [facility] [address] [id number] [address] [place] [address], [place] [address] 18 Jun, 2012 [facility] [address] [id number] [address] [place] [address], [place] [id number] 18 Jun, 2012 [facility] [address] [id number] [address] [place] [address] [address] 14 Jun, 2012 [facility] [address] [id number] [address] [place] [address], [place] [address] 14 Jun, 2012 [facility] [address] [id number] [address] [place] [address], [place] [id number] 13 Jun, 2012 [facility] [address] [id number] [address] [place] [address], [place] [address] 13 Jun, 2012 [facility] [address] [id number] [address] [place] [address], [place] [id number] 11 Jun, 2012 [facility] [address] [id number] [address] [place] [address], [place] [address] 11 Jun, 2012 [facility] [address] [id number] [address] [place] [address], [place] [address] 11 Jun, 2012 [facility] [address] [id number] [address] [place] [address], [place] [address] Jun, [facility] [address] [id number] [address] [place] [address], [place] [id number] 07 Jun, 2012 [facility] [address] [id number] [address] [place] [address], [place] [address] 07 Jun, 2012 [facility] [address] [id number] [address] [place] [address], [place] [address] 06 Jun, 2012 [facility] [address] [id number] [address] [place] [address], [place] [address] Jun, [facility] [address] [id number] [address] [place] [address], [place] [address] Jun, [facility] [address] [id number] [address] [place] [address], [place] [address] Jun, [facility] [address] [id number] [address] [place] [address], [place] [address] 05 Jun, 2012 [facility] [address] [id number] [address] [place] [address], [place] [id number] 05 Jun, 2012 [facility] [address] [id number] [address] [place] [address], [place] [address] Jun, [facility] [address] [id number] [address] [place] [address], [place] [address] Jun, [facility] [address] [id number] [address] [place] [address], [place] [address] May, [facility] [address] [id number] [address] [place] [address], [place] [address] May, [facility] [address] [id number] [address] [place] [address], [place] [address] May, [facility] [address] [id number] [address] [place] [address], [place] [address] May, [facility] [address] [id number] [address] [place] [address], [place] [address] May, [facility] [address] [id number] [address] [place] [address], [place] [address] May, [facility] [address] [id number] [address] [place] [address], [place] [address] May, [facility] [address] [id number] [address] [place] [address], [place] [address] May, [facility] [address] [id number] [address] [place] [address], [place] [address] Apr, [facility] [address] [id number] [address] [place] [address], [place] [address] 30 Apr, 2012 [facility] [address] [id number] [address] [place] [address], [place] [address] 29 Apr, 2012 [facility] [address] [id number] [address] [place] [address], [place] [address] Apr, [facility] [address] [id number] [address] [place] [address], [place] [address] Apr, [facility] [address] [id number] [address] [place] [id number] Apr, [facility] [address] [id number] [address] [place] [address], [place] [address] Apr, [facility] [address] [id number] [address] [place] [address], [place] [address] Apr, [facility] [address] [id number] [address] [place] [address], [place] [address] Apr, [facility] [address] [id number] [address] [place] [address], [place] [address] Apr, [facility] [address] [id number] [address] [place] [address], [place] [address] Apr, [facility] [address] [id number] [address] [place] [address], [place] [address] Apr, [facility] [address] [id number] [address] [place] [address], [place] [address] Mar, [facility] [address] [id number] [address] [place] [address], [place] [address] 18 Mar, 2012 [facility] [address] [id number] [address] [place] [address], [place] [address] Mar, [facility] [address] [id number] [address] [place] [id number] Mar, [facility] [address] [id number] [address] [place] [id number] Mar, [facility] [address] [id number] [address] [place] [id number] Mar, [facility] [address] [id number] [address] [place] [id number] Mar, [facility] [address] [id number] [address] [place] [id number] Jan, [facility] [address] [id number] [address] [place] [id number] Jan, [facility] [address] [id number] [address] [place] [id number] Jan, [facility] [address] [id number] [address] [place] [address], [place] [id number] Jan, [facility] [address] [id number] [address] [place] [address], [place] [address] Jan, [facility] [address] [id number] [address] [place] [address], [place] [address] Jan, [facility] [address] [id number] [address] [place] [address], [place] [address] Jan, [facility] [address] [id number] [address] [place] [address], [place] [address] Jan, [facility] [address] [id number] [address] [place] [address], [place] [address] Jan, [facility] [address] [id number] [address] [place] [address], [place] [address] Jan, [facility] [address] [id number] [address] [place] [address], [place] [address] Jan, [facility] [address] [id number] [address] [place] [address], [place] [address] Dec, [facility] [address] [id number] [address] [place] [address], [place] [address] Dec, [facility] [address] [id number] [address] [place] [address], [place] [address] Dec, [facility] [address] [id number] [address] [place] [address], [place] [address] Dec, [facility] [address] [id number] [address] [place] [address], [place] [address] Dec, [facility] [address] [id number] [address] [place] [address], [place] [address] Dec, [facility] [address] [id number] [address] [place] [address], [place] [address] Dec, [facility] [address] [id number] [facility] [place] [address] 17 Jan, 2012 [facility] [address] [id number] [address] [place] [address], [place] [id number] 16 Jan, 2012 [facility] [address] [id number] [address] [place] [address], [place] [address] 13 Jan, 2012 [facility] [address] [id number] [address] [place] [address], [place] [address] 13 Jan, 2012 [facility] [address] [id number] [address] [place] [address], [place] [address] Dec, [facility] [address] [id number] [address] [place] [address], [place] [address] Dec, [facility] [address] [id number] [address] [place] [address], [place] [address] Dec, [facility] [address] [id number] [address] [place] [address], [place] [address] Dec, [facility] [address] [id number] [address] [place] [address], [place] [address] Dec, [facility] [address] [id number] [address] [place] [address], [place] [address] 15 Dec, 2011 [facility] [address] [id number] [address] [place] [address], [place] [address] 06 Dec, 2011 [facility] [address] [id number] [address] [place] [address], [place] [address] 05 Dec, 2011 [facility] [address] [id number] [address] [place] [address], [place] [address] October, [facility] [address] [id number] [address] [place] [address], [place] [address] October, [facility] [address] [id number] [address] [place] [address], [place] [address] October, [facility] [address] [id number] [address] [place] [address], [place] [address] October, [facility] [address] [id number] [address] [place] [address], [place] [address] October, [facility] [address] [id number] [address] [place] [address], [place] [address] October, [facility] [address] [id number] [address] [place] [address], [place] [address] Oct, [facility] [address] [id number] [address] [place] [address], [place] [address] Oct, [facility] [address] [id number] [address] [place] [address], [place] [address] Oct, [facility] [address] [id number] [address] [place] [address], [place] [address] Oct, [facility] [address] [id number] [address] [place] [address], [place] [address] Oct, [facility] [address] [id number] [address] [place] [address], [place] [address] Oct, [facility] [address] [id number] [address] [place] [address], [place] [address] Oct, [facility] [address] [id number] [address] [place] [address], [place] [address] Aug, [facility] [address] [id number] [address] [place] [address], [place] [address] Aug, [facility] [address] [id number] [address] [place] [address], [place] [address] Aug, [facility] [address] [id number] [address] [place] [address], [place] [address] Aug, [facility] [address] [id number] [address] [place] [address], [place] [address] Aug, [facility] [address] [id number] [address] [place] [address], [place] [address] Aug, [facility] [address] [id number] [address] [place] [address], [place] [address] Aug, [facility] [address] [id number] [address] [place] [address], [place] [address] Aug, [facility] [address] [id number] [address] [place] [address], [place] [address] 08 Aug, 2011 [facility] [address] [id number] [address] [place] [address], [place] [address] Jul, [facility] [address] [id number] [address] [place] [address], [place] [address] Jul, [facility] [address] [id number] [address] [place] [address], [place] [address] Jul, [facility] [address] [id number] [address] [place] [address], [place] [address] Jul, [facility] [address] [id number] [address] [place] [address], [place] [address] Jun, [facility] [address] [id number] [address] [place] [address], [place] [address] Jun, [facility] [address] [id number] [address] [place] [address], [place] [address] May, [facility] [address] [id number] [address] [place] [address], [place] [address] May, [facility] [address] [id number] [address] [place] [address], [place] [address] May, [facility] [address] [id number] [address] [place] [address], [place] [address] May, [facility] [address] [id number] [address] [place] [address], [place] [address] May, [facility] [address] [id number] [address] [place] [address], [place] [address] 28 Apr, 2011 [facility] [address] [id number] [address] [place] [address], [place] [address] Apr, [facility] [address] [id number] [address] [place] [address] Apr, [facility] [address] [id number] [address] [place] [id number] Jan, [facility] [address] [id number] [address] [place] [id number] Dec, [facility] [address] [id number] [address] [place] [id number] October, [facility] [address] [id number] [address] [place] [id number] Jun, [facility] [address] [id number] [address] [place] [id number] Apr, [facility] [address] [id number] [address] [place] [id number] Apr, [facility] [address] [id number] [address] [place] [address] Apr, [facility] [address] [id number] [address] [place] [id number] Jun, IMMUNIZATIONS No Known Immunizations SOCIAL HISTORY [...]
--- OUTSIDE RECORDS SUMMARY | 2020-01-25 13:18 | XMS REPORT ---
Author Author Ana Brannon [facility] Address [address] [place] [address] Care Team Providers Care Production Support Specialist Name Role Phone Clovis ANEUDY Unavailable PROBLEMS Type Condition ICD9-CM Code ADD78-KF Code Onset Dates Condition S tatus SNOMED Code Problem Chronic hepatitis C without hepatic coma B18.2 Active 087674557 Problem Cannabis abuse F12.10 Active 11165 009 Problem Bipolar 1 disorder F31.9 Active 3 30066894 Problem Attention deficit hyperactivity disorder (ADHD), combi luciano type F90.2 Active 78097835 Problem Attention deficit R41.840 Active 76 940032 Problem Hot flashes due to menopause N95.1 A ctive 490935214 Problem H/O laminectomy Z98.89 Active 1616 97486 Problem Other chronic pain G89.29 Active 8 0434843 Problem Anxiety disorder, unspecified type F41.9 Active 312865132 Problem Bipolar disorder, in partial remission, most rec ent episode hypomanic F31.71 Active [id number] ALLERGIES No Information ENCOUNTERS Encounter Location Date Diagnosis [facility] [address] [id number] [address] [place] [id number] Oct, [facility] [address] [facility] [id number] [address] [place] [address] Oct, [facility] [address] [facility] [id number] [address] [place] [address] Aug, [facility] [address] [facility] [id number] [address] [place] [address] Jul, [facility] [address] [facility] [id number] [address] [place] [address] Jul, [facility] [address] [facility] [id number] [address] [place] [address] Apr, [facility] [address] [id number] [address] [place] [address] Mar, Hot flashes due to menopause N95.1 ; Anxiety disorder, unspecified type F41.9 ; Low back pain M54.5 and Encounter for immunization Z23 [facility] [address] [id number] [address] [place] [address] Dec, Other chronic pain G89.29 an d Low back pain M54.5 [facility] [address] [id number] [address] [place] [address] October, [facility] [address] [id number] [address] [place] [address] October, [facility] [address] [id number] [address] [place] [address] October, [facility] [address] [facility] [id number] [address] [place] [address] October, Other chronic pain G89.29 an d Chronic hepatitis C without hepatic coma B18.2 [facility] [address] [id number] [address] [place] [address] Aug, Bipolar disorder, in partial remission, most recent episode hypomanic F31.71 ; Attention deficit hyperactivity disorder (ADHD), combined type F90.2 and Anxiety disorder, unspecified type F41.9 [facility] [address] [id number] [address] [place] [address] Aug, [facility] [address] [id number] [address] [place] [address] Aug, Bipolar disorder, in partial remission, most recent episode hypomanic F31.71 [facility] [address] [facility] [id number] [address] [place] [address] Aug, [facility] [address] [facility] [id number] [address] [place] [address] Aug, Bipolar disorder, in partial remission, most recent episode hypomanic F31.71 [facility] [address] [id number] [address] [place] [address] Aug, Bipolar disorder, in partial remission, most recent episode hypomanic F31.71 ; Attention deficit hyperactivity disorder (ADHD), combined type F90.2 and Anxiety disorder, unspecified type F41.9 [facility] [address] [id number] [address] [place] [address] Aug, Low back pain M54.5 and Pain in left wrist M25.532 [facility] [address] [id number] [address] [place] [address] Aug, [facility] [address] [id number] [address] [place] [address] Jun, [facility] [address] [id number] [address] [place] [address] Apr, Bipolar disorder, in partial remission, most recent episode hypomanic F31.71 [facility] [address] [id number] [address] [place] [address] Apr, [facility] [address] [id number] [address] [place] [address] Apr, Bipolar disorder, in partial remission, most recent episode hypomanic F31.71 ; Attention deficit hyperactivity disorder (ADHD), combined type F90.2 ; Anxiety disorder, unspecified type F41.9 and Other [facility] (current) drug therapy Z79.899 [facility] [address] [id number] [address] [place] [address] Apr, Bipolar disorder, in partial remission, most recent episode hypomanic F31.71 [facility] [address] [id number] [address] [place] [address] Apr, Bipolar disorder, in partial remission, most recent episode hypomanic F31.71 [facility] [address] [id number] [address] [place] [address] Mar, [facility] [address] [id number] [address] [place] [address] Mar, Bipolar disorder, in partial remission, most recent episode hypomanic F31.71 ; Encounter for immunization Z23 and Low back pain M54.5 [facility] [address] [id number] [address] [place] [address] 17 Mar, 2018 Bipolar disorder, in partial remission, most recent episode hypomanic F31.71 [facility] [address] [id number] [address] [place] [address] Mar, Bipolar disorder, in partial remission, most recent episode hypomanic F31.71 [facility] [address] [id number] [address] [place] [address] Jan, Bipolar disorder, in partial remission, most recent episode hypomanic F31.71 [facility] [address] [id number] [address] [place] [address] Jan, Bipolar disorder, in partial remission, most recent episode hypomanic F31.71 [facility] [address] [id number] [address] [place] [address] Dec, Bipolar disorder, in partial remission, most recent episode hypomanic F31.71 [facility] [address] [facility] [id number] [address] [place] [address] Dec, Bipolar disorder, in partial remission, most recent episode hypomanic F31.71 ; Attention deficit hyperactivity disorder (ADHD), combined type F90.2 ; Anxiety disorder, unspecified type F41.9 and Other m[facility]p (current) drug therapy Z79.899 [facility] [address] [id number] [address] [place] [address] Dec, Bipolar disorder, in partial remission, most recent episode hypomanic F31.71 [facility] [address] [facility] [id number] [address] [place] [address] Dec, Bipolar disorder, in partial remission, most recent episode hypomanic F31.71 [facility] [address] [facility] [id number] [address] [place] [address] October, Bipolar disorder, in partial remission, most recent episode hypomanic F31.71 [facility] [address] [id number] [address] [place] [address] October, [facility] [address] [id number] [address] [place] [address] October, [facility] [address] [id number] [address] [place] [address] Oct, Bipolar disorder, in partial remission, most recent episode hypomanic F31.71 ; Attention deficit hyperactivity disorder (ADHD), combined type F90.2 ; Anxiety disorder, unspecified type F41.9 and Encounter for drug screening Z02.83 [facility] [address] [id number] [address] [place] [address] Oct, Bipolar disorder, in partial remission, most recent episode hypomanic F31.71 [facility] [address] [id number] [address] [place] [address] Oct, Bipolar disorder, in partial remission, most recent episode hypomanic F31.71 [facility] [address] [facility] [id number] [address] [place] [address] Aug, Bipolar disorder, in partial remission, most recent episode hypomanic F31.71 [facility] [address] [facility] [id number] [address] [place] [address] Aug, Bipolar disorder, in partial remission, most recent episode hypomanic F31.71 [facility] [address] [id number] [address] [place] [address] Aug, Bipolar disorder, in partial remission, most recent episode hypomanic F31.71 [facility] [address] [facility] [id number] [address] [place] [address] Jul, Bipolar disorder, in partial remission, most recent episode hypomanic F31.71 ; Attention deficit hyperactivity disorder (ADHD), combined type F90.2 and Anxiety disorder, unspecified type F41.9 [facility] [address] [id number] [address] [place] [address] Jul, Bipolar disorder, in partial remission, most recent episode hypomanic F31.71 [facility] [address] [id number] [address] [place] [address] Jun, Bipolar disorder, in partial remission, most recent episode hypomanic F31.71 [facility] [address] [id number] [address] [place] [address] May, Bipolar disorder, in partial remission, most recent episode hypomanic F31.71 [facility] [address] [id number] [address] [place] [address] May, Bipolar disorder, in partial remission, most recent episode hypomanic F31.71 [facility] [address] [facility] [id number] [address] [place] [address] Apr, [facility] [address] [facility] [id number] [address] [place] [address] Apr, Bipolar disorder, in partial remission, most recent episode hypomanic F31.71 ; Attention deficit hyperactivity disorder (ADHD), combined type F90.2 ; Anxiety disorder, unspecified type F41.9 and Cannabis abuse F12.10 [facility] [address] [facility] [id number] [address] [place] [address] Apr, Attention deficit hyperactiv ity disorder (ADHD), combined type F90.2 [facility] [address] [id number] [address] [place] [address] Mar, Attention deficit hyperactiv ity disorder (ADHD), combined type F90.2 [facility] [address] [id number] [address] [place] [address] 14 Mar, 2017 Anxiety disorder, unspecifie d type F41.9 [facility] [address] [facility] [id number] [address] [place] [address] Jan, Attention deficit hyperactiv ity disorder (ADHD), combined type F90.2 [facility] [address] [id number] [address] [place] [address] Jan, Anxiety disorder, unspecifie d type F41.9 [facility] [address] [id number] [address] [place] [address] Jan, Other chronic pain G89.29 ; Chronic hepatitis C without hepatic coma B18.2 and Bipolar 1 disorder F31.9 [facility] [address] [id number] [address] [place] [address] Dec, Attention deficit hyperactiv ity disorder (ADHD), combined type F90.2 [facility] [address] [id number] [address] [place] [address] Dec, Bipolar disorder, in partial remission, most recent episode hypomanic F31.71 ; Attention deficit hyperactivity disorder (ADHD), combined type F90.2 and Anxiety disorder, unspecified type F41.9 [place] [address] [id number] [place] [address] Dec, Bipolar disorder, in partial remission, most recent episode hypomanic F31.71 ; Attention deficit hyperactivity disorder (ADHD), combined type F90.2 and Anxiety disorder, unspecified type F41.9 [place] [address] [id number] [place] [address] Dec, Bipolar 1 disorder F31.9 and Attention deficit R41.840 [place] [address] [id number] [address] [place] [address] Oct, Other chronic pain G89.29 ; Alopecia L65.9 and Screening, lipid Z13.220 [facility] [address] [id number] [address] [place] [address] Oct, [place] [address] [id number] [place] [address] Aug, [place] [id number] [place] [id number] [place] [address] Aug, Eustachian tube dysfunction, right H69.81 ; Vertigo R42 and Other chronic pain G89.29 [facility] [address] [id number] [address] [place] [address] Aug, [facility] [address] [id number] [address] [place] [address] Jun, [facility] [address] [id number] [address] [place] [address] Jun, Low back pain M54.5 and Othe r chronic pain G89.29 [facility] [address] [id number] [address] [place] [address] Jun, [facility] [address] [id number] [address] [place] [address] May, [facility] [address] [id number] [address] [place] [address] Jan, [facility] [address] [id number] [address] [place] [address] Dec, [facility] [address] [id number] [address] [place] [address] Dec, [facility] [address] [id number] [address] [place] [address] Jun, [facility] [address] [facility] [id number] [address] [place] [address] Apr, Eustachian tube dysfunction, unspecified laterality H69.80 ; Hot flashes N95.1 and Encounter for immunization Z23 [facility] [address] [id number] [address] [place] [address] Jan, [facility] [address] [id number] [address] [place] [address] Jan, [facility] [address] [id number] [address] [place] [address] Jan, [facility] [address] [id number] [address] [place] [address] Jan, [facility] [address] [id number] [address] [place] [address] Jan, Encounter to establish care V65.8 ; Bipolar 1 disorder 296.7 ; Abdominal pain 789.00 ; Constipation 564.00 ; Hard of hearing 389.9 and Drug abuse 305.90 [facility] [address] [id number] [address] [place] [address] Dec, [facility] [address] [id number] [address] [place] [address] October, [facility] [address] [id number] [address] [place] [address] October, [facility] [address] [id number] [address] [place] [address] Oct, [facility] [address] [id number] [address] [place] [address] Oct, [facility] [address] [id number] [address] [place] [address] Oct, [facility] [address] [id number] [address] [place] [address] Aug, [facility] [address] [id number] [address] [place] [address] Aug, [facility] [address] [id number] [address] [place] [address] Aug, [facility] [address] [id number] [address] [place] [address] Aug, [facility] [address] [id number] [address] [place] [address] Aug, [facility] [address] [id number] [address] [place] [address] Aug, [facility] [address] [id number] [address] [place] [address] Aug, [facility] [address] [id number] [address] [place] [address], [place] [address] Aug, 2014 [facility] [address] [id number] [address] [place] [address], [place] [address] Aug, 2014 [facility] [address] [id number] [address] [place] [address], [place] [address] Aug, 2014 [facility] [address] [id number] [address] [place] [address], [place] [address] Aug, 2014 [facility] [address] [id number] [address] [place] [address], [place] [address] Aug, 2014 [facility] [address] [id number] [address] [place] [address], [place] [address] Aug, 2014 [facility] [address] [id number] [address] [place] [address], [place] [address] Aug, 2014 [facility] [address] [id number] [address] [place] [address], [place] [address] Aug, [facility] [address] [id number] [address] [place] [address], [place] [address] Jul, [facility] [address] [id number] [address] [place] [address], [place] [address] Jul, [facility] [address] [id number] [address] [place] [address], [place] [address] Jul, [facility] [address] [id number] [address] [place] [address], [place] [address] Jul, [facility] [address] [id number] [address] [place] [address], [place] [address] Jul, [facility] [address] [id number] [address] [place] [address], [place] [address] Jul, [facility] [address] [id number] [address] [place] [address], [place] [address] Jul, [facility] [address] [id number] [address] [place] [address], [place] [address] Jul, [facility] [address] [id number] [address] [place] [address], [place] [address] Jun, [facility] [address] [id number] [address] [place] [address], [place] [address] Jun, [facility] [address] [id number] [address] [place] [address], [place] [address] Jun, [facility] [address] [id number] [address] [place] [address], [place] [address] Jun, [facility] [address] [id number] [address] [place] [address], [place] [address] Jun, [facility] [address] [id number] [address] [place] [address], [place] [address] Jun, [facility] [address] [id number] [address] [place] [address], [place] [address] Jun, [facility] [address] [id number] [address] [place] [address], [place] [address] Jun, [facility] [address] [id number] [address] [place] [address], [place] [address] Jun, [facility] [address] [id number] [address] [place] [address], [place] [address] Jun, [facility] [address] [id number] [address] [place] [address], [place] [address] Jun, [facility] [address] [id number] [address] [place] [address], [place] [address] May, [facility] [address] [id number] [address] [place] [address], [place] [address] May, [facility] [address] [id number] [address] [place] [address], [place] [address] May, [facility] [address] [id number] [address] [place] [address], [place] [address] May, [facility] [address] [id number] [address] [place] [address], [place] [address] May, [facility] [address] [id number] [address] [place] [address], [place] [address] May, [facility] [address] [id number] [address] [place] [address], [place] [address] May, [facility] [address] [id number] [address] [place] [address], [place] [address] Apr, [facility] [address] [id number] [address] [place] [address], [place] [address] Apr, [facility] [address] [id number] [address] [place] [address], [place] [address] Apr, [facility] [address] [id number] [address] [place] [address], [place] [address] Apr, [facility] [address] [id number] [address] [place] [address], [place] [address] Apr, [facility] [address] [id number] [address] [place] [address], [place] [address] Apr, [facility] [address] [id number] [address] [place] [address], [place] [address] Mar, [facility] [address] [id number] [address] [place] [address], [place] [address] 29 Mar, 2014 [facility] [address] [id number] [address] [place] [address], [place] [address] Mar, [facility] [address] [id number] [address] [place] [address], [place] [address] Mar, [facility] [address] [id number] [address] [place] [address], [place] [address] Mar, [facility] [address] [id number] [address] [place] [address], [place] [address] Mar, [facility] [address] [id number] [address] [place] [address], [place] [address] Jan, [facility] [address] [id number] [address] [place] [address], [place] [address] Jan, [facility] [address] [id number] [address] [place] [address], [place] [address] Jan, [facility] [address] [id number] [address] [place] [address], [place] [address] Jan, [facility] [address] [id number] [address] [place] [address], [place] [address] Dec, [facility] [address] [id number] [address] [place] [address], [place] [address] Dec, [facility] [address] [id number] [address] [place] [address], [place] [address] Dec, [facility] [address] [id number] [address] [place] [address], [place] [address] Dec, [facility] [address] [id number] [address] [place] [address], [place] [address] Dec, [facility] [address] [id number] [address] [place] [address], [place] [address] Dec, [facility] [address] [id number] [address] [place] [address], [place] [address] Dec, [facility] [address] [id number] [address] [place] [address], [place] [address] Dec, [facility] [address] [id number] [address] [place] [address], [place] [address] Dec, [facility] [address] [id number] [address] [place] [address], [place] [address] Dec, [facility] [address] [id number] [address] [place] [address], [place] [address] Dec, [facility] [address] [id number] [address] [place] [address], [place] [address] Dec, [facility] [address] [id number] [address] [place] [address], [place] [address] October, [facility] [address] [id number] [address] [place] [address], [place] [address] October, [facility] [address] [id number] [address] [place] [address], [place] [address] October, [facility] [address] [id number] [address] [place] [address], [place] [address] October, [facility] [address] [id number] [address] [place] [address], [place] [address] October, [facility] [address] [id number] [address] [place] [address], [place] [address] October, [facility] [address] [id number] [address] [place] [address], [place] [address] Oct, [facility] [address] [id number] [address] [place] [address], [place] [address] Oct, [facility] [address] [id number] [address] [place] [address], [place] [address] Oct, [facility] [address] [id number] [address] [place] [address], [place] [address] Oct, [facility] [address] [id number] [address] [place] [address], [place] [address] Oct, [facility] [address] [id number] [address] [place] [address], [place] [address] Oct, [facility] [address] [id number] [address] [place] [address], [place] [address] Oct, [facility] [address] [id number] [address] [place] [address], [place] [address] Oct, [facility] [address] [id number] [address] [place] [address], [place] [address] Oct, [facility] [address] [id number] [address] [place] [address], [place] [address] Oct, [facility] [address] [id number] [facility] [place] [address] 08 Oct, 2013 [facility] [address] [id number] [facility] [place] [address] 08 Oct, 2013 [facility] [address] [id number] [facility] [place] [address] 15 Aug, 2013 [facility] [address] [id number] [address] [place] [address], [place] [address] 15 Aug, 2013 [facility] [address] [id number] [address] [place] [address], [place] [address] Aug, [facility] [address] [id number] [address] [place] [address], [place] [address] Aug, [facility] [address] [id number] [address] [place] [address], [place] [address] Aug, [facility] [address] [id number] [address] [place] [address], [place] [address] Aug, [facility] [address] [id number] [address] [place] [address], [place] [address] Aug, [facility] [address] [id number] [address] [place] [address], [place] [address] Aug, [facility] [address] [id number] [address] [place] [address], [place] [address] Aug, [facility] [address] [id number] [address] [place] [address], [place] [address] Aug, [facility] [address] [id number] [address] [place] [address], [place] [address] Aug, [facility] [address] [id number] [address] [place] [address], [place] [address] Aug, [facility] [address] [id number] [address] [place] [address], [place] [address] Aug, [facility] [address] [id number] [address] [place] [address], [place] [address] 20 Aug, 2013 [facility] [address] [id number] [address] [place] [address], [place] [address] 14 Aug, 2013 [facility] [address] [id number] [address] [place] [address], [place] [address] 14 Aug, 2013 [facility] [address] [id number] [address] [place] [address], [place] [address] 14 Aug, 2013 [facility] [address] [id number] [address] [place] [address], [place] [address] 14 Aug, 2013 [facility] [address] [id number] [address] [place] [address], [place] [address] 07 Aug, 2013 [facility] [address] [id number] [address] [place] [address], [place] [address] 07 Aug, 2013 [facility] [address] [id number] [address] [place] [address], [place] [address] 06 Aug, 2013 [facility] [address] [id number] [address] [place] [address], [place] [address] 06 Aug, 2013 [facility] [address] [id number] [address] [place] [address], [place] [address] 04 Aug, 2013 [facility] [address] [id number] [address] [place] [address], [place] [address] 04 Aug, 2013 [facility] [address] [id number] [address] [place] [address], [place] [address] Aug, [facility] [address] [id number] [address] [place] [address], [place] [address] Jul, [facility] [address] [id number] [address] [place] [address], [place] [address] Jul, [facility] [address] [id number] [address] [place] [address], [place] [address] Jul, [facility] [address] [id number] [address] [place] [address], [place] [address] Jul, [facility] [address] [id number] [address] [place] [address], [place] [address] Jul, [facility] [address] [id number] [address] [place] [address], [place] [address] Jul, [facility] [address] [id number] [address] [place] [address], [place] [address] Jul, [facility] [address] [id number] [address] [place] [address], [place] [address] Jul, [facility] [address] [id number] [address] [place] [address], [place] [address] Jul, [facility] [address] [id number] [address] [place] [address], [place] [address] Jul, [facility] [address] [id number] [address] [place] [address], [place] [address] Jul, [facility] [address] [id number] [address] [place] [address], [place] [address] Jul, [facility] [address] [id number] [address] [place] [address], [place] [address] Jul, [facility] [address] [id number] [address] [place] [address], [place] [address] Jul, [facility] [address] [id number] [address] [place] [address], [place] [address] Jul, [facility] [address] [id number] [address] [place] [address], [place] [address] Jul, [facility] [address] [id number] [address] [place] [address], [place] [address] Jul, [facility] [address] [id number] [address] [place] [address], [place] [address] Jul, [facility] [address] [id number] [address] [place] [address], [place] [address] Jul, [facility] [address] [id number] [address] [place] [address], [place] [address] Jul, [facility] [address] [id number] [address] [place] [address], [place] [address] Jun, [facility] [address] [id number] [address] [place] [address], [place] [address] Jun, [facility] [address] [id number] [address] [place] [address], [place] [address] Jun, [facility] [address] [id number] [address] [place] [address], [place] [address] Jun, [facility] [address] [id number] [address] [place] [address], [place] [address] Jun, [facility] [address] [id number] [address] [place] [address], [place] [address] Jun, [facility] [address] [id number] [address] [place] [address], [place] [address] Jun, [facility] [address] [id number] [address] [place] [address], [place] [address] Jun, [facility] [address] [id number] [address] [place] [address], [place] [address] Jun, [facility] [address] [id number] [address] [place] [address], [place] [address] Jun, [facility] [address] [id number] [address] [place] [address], [place] [address] Jun, [facility] [address] [id number] [address] [place] [address], [place] [address] Jun, [facility] [address] [id number] [address] [place] [address], [place] [address] Jun, [facility] [address] [id number] [address] [place] [address], [place] [address] Jun, [facility] [address] [id number] [address] [place] [address], [place] [address] Jun, [facility] [address] [id number] [address] [place] [address], [place] [address] 18 Jun, 2013 [facility] [address] [id number] [address] [place] [address], [place] [address] 18 Jun, 2013 [facility] [address] [id number] [address] [place] [address], [place] [address] 17 Jun, 2013 [facility] [address] [id number] [address] [place] [address], [place] [address] 17 Jun, 2013 [facility] [address] [id number] [address] [place] [address], [place] [address] 13 Jun, 2013 [facility] [address] [id number] [address] [place] [address], [place] [address] Jun, [facility] [address] [id number] [address] [place] [address], [place] [address] Jun, [facility] [address] [id number] [address] [place] [address], [place] [address] Jun, [facility] [address] [id number] [address] [place] [address], [place] [address] 05 Jun, 2013 [facility] [address] [id number] [address] [place] [address], [place] [address] 05 Jun, 2013 [facility] [address] [id number] [address] [place] [address], [place] [address] 04 Jun, 2013 [facility] [address] [id number] [address] [place] [address], [place] [address] 04 Jun, 2013 [facility] [address] [id number] [address] [place] [address], [place] [address] 17 May, 2013 [facility] [address] [id number] [address] [place] [address], [place] [address] 17 May, 2013 [facility] [address] [id number] [address] [place] [address], [place] [address] May, [facility] [address] [id number] [address] [place] [address] [address] May, [facility] [address] [id number] [address] [place] [address], [place] [address] May, [facility] [address] [id number] [address] [place] [address], [place] [address] May, [facility] [address] [id number] [address] [place] [address], [place] [address] Apr, [facility] [address] [id number] [address] [place] [address], [place] [address] Apr, [facility] [address] [id number] [address] [place] [address], [place] [address] Apr, [facility] [address] [id number] [address] [place] [address], [place] [address] Apr, [facility] [address] [id number] [address] [place] [address], [place] [address] Apr, [facility] [address] [id number] [address] [place] [address], [place] [address] Apr, [facility] [address] [id number] [address] [place] [address], [place] [address] Apr, [facility] [address] [id number] [address] [place] [address] Apr, [facility] [address] [id number] [address] [place] [address] 26 Mar, 2012 [facility] [address] [id number] [address] [place] [address] 24 Sep, 2012 [facility] [address] [id number] [address] [place] [address], [place] [address] 17 Sep2012 [facility] [address] [id number] [address] [place] [address] 17 Sep, 2012 [facility] [address] [id number] [address] [place] [address], [place] [address] 11 Mar, 2013 [facility] [address] [id number] [facility] [place] [address] 10 Mar, 2013 [facility] [address] [id number] [address] [place] [address], [place] [address] 05 Mar, 2013 [facility] [address] [id number] [address] [place] [address], [place] [address] 04 Mar, 2013 [facility] [address] [id number] [address] [place] [address], [place] [address] 20 Jan, 2013 [facility] [address] [id number] [address] [place] [address], [place] [address] Jan, [facility] [address] [id number] [address] [place] [address], [place] [address] 14 Jan, 2013 [facility] [address] [id number] [address] [place] [address], [place] [address] Jan, [facility] [address] [id number] [address] [place] [address], [place] [address] Jan, [facility] [address] [id number] [address] [place] [address], [place] [address] Jan, [facility] [address] [id number] [address] [place] [address], [place] [address] Dec, [facility] [address] [id number] [address] [place] [address], [place] [address] Dec, [facility] [address] [id number] [address] [place] [address], [place] [address] Dec, [facility] [address] [id number] [address] [place] [address], [place] [address] Dec, [facility] [address] [id number] [address] [place] [address], [place] [address] 18 Dec, 2012 [facility] [address] [id number] [address] [place] [address], [place] [address] 17 Dec, 2012 [facility] [address] [id number] [address] [place] [address], [place] [address] 16 Dec, 2012 [facility] [address] [id number] [address] [place] [address], [place] [address] 16 Dec, 2012 [facility] [address] [id number] [address] [place] [address], [place] [address] 15 Dec, 2012 [facility] [address] [id number] [address] [place] [address], [place] [address] 10 Dec, 2012 [facility] [address] [id number] [address] [place] [address], [place] [address] Dec, [facility] [address] [id number] [address] [place] [address], [place] [address] Dec, [facility] [address] [id number] [address] [place] [address], [place] [address] Dec, [facility] [address] [id number] [address] [place] [address], [place] [address] Dec, [facility] [address] [id number] [address] [place] [address], [place] [address] Dec, [facility] [address] [id number] [address] [place] [address], [place] [address] Dec, [facility] [address] [id number] [address] [place] [address], [place] [address] October, [facility] [address] [id number] [address] [place] [address], [place] [address] October, [facility] [address] [id number] [address] [place] [address], [place] [address] October, [facility] [address] [id number] [address] [place] [address], [place] [address] October, [facility] [address] [id number] [address] [place] [address], [place] [address] October, [facility] [address] [id number] [address] [place] [address], [place] [address] October, [facility] [address] [id number] [address] [place] [address], [place] [address] October, [facility] [address] [id number] [address] [place] [address], [place] [address] Oct, [facility] [address] [id number] [address] [place] [address], [place] [address] Oct, [facility] [address] [id number] [address] [place] [address], [place] [address] Oct, [facility] [address] [id number] [address] [place] [address], [place] [address] Oct, [facility] [address] [id number] [address] [place] [address], [place] [address] Oct, [facility] [address] [id number] [address] [place] [address], [place] [address] Oct, [facility] [address] [id number] [address] [place] [address], [place] [address] Oct, [facility] [address] [id number] [address] [place] [address], [place] [address] 15 Oct, 2012 [facility] [address] [id number] [address] [place] [address], [place] [address] Oct, [facility] [address] [id number] [address] [place] [address], [place] [address] Oct, [facility] [address] [id number] [address] [place] [address], [place] [address] Oct, [facility] [address] [id number] [address] [place] [address], [place] [address] Oct, [facility] [address] [id number] [address] [place] [address], [place] [address] Aug, [facility] [address] [id number] [address] [place] [address], [place] [address] Aug, [facility] [address] [id number] [address] [place] [address], [place] [address] Aug, [facility] [address] [id number] [address] [place] [address], [place] [address] 06 Aug, 2012 [facility] [address] [id number] [address] [place] [address], [place] [address] 05 Aug, 2012 [facility] [address] [id number] [address] [place] [address], [place] [address] 05 Aug, 2012 [facility] [address] [id number] [address] [place] [address], [place] [address] 20 Aug, 2012 [facility] [address] [id number] [address] [place] [address], [place] [address] 14 Aug, 2012 [facility] [address] [id number] [address] [place] [address], [place] [address] 12 Aug, 2012 [facility] [address] [id number] [address] [place] [address], [place] [address] Aug, [facility] [address] [id number] [address] [place] [address], [place] [address] 29 Jul, 2012 [facility] [address] [id number] [address] [place] [address], [place] [address] 15 Jul, 2012 [facility] [address] [id number] [address] [place] [address], [place] [address] 08 Jul, 2012 [facility] [address] [id number] [address] [place] [address], [place] [address] 20 Jun, 2012 [facility] [address] [id number] [address] [place] [address], [place] [address] 18 Jun, 2012 [facility] [address] [id number] [address] [place] [address], [place] [address] 18 Jun, 2012 [facility] [address] [id number] [address] [place] [address], [place] [address] 18 Jun, 2012 [facility] [address] [id number] [address] [place] [address], [place] [address] 18 Jun, 2012 [facility] [address] [id number] [address] [place] [address] [address] 14 Jun, 2012 [facility] [address] [id number] [address] [place] [address], [place] [address] 14 Jun, 2012 [facility] [address] [id number] [address] [place] [address], [place] [address] 13 Jun, 2012 [facility] [address] [id number] [address] [place] [address], [place] [address] 13 Jun, 2012 [facility] [address] [id number] [address] [place] [address], [place] [address] 11 Jun, 2012 [facility] [address] [id number] [address] [place] [address], [place] [address] 11 Jun, 2012 [facility] [address] [id number] [address] [place] [address], [place] [address] 11 Jun, 2012 [facility] [address] [id number] [address] [place] [address], [place] [address] Jun, [facility] [address] [id number] [address] [place] [address], [place] [address] 07 Jun, 2012 [facility] [address] [id number] [address] [place] [address], [place] [address] 07 Jun, 2012 [facility] [address] [id number] [address] [place] [address], [place] [address] 06 Jun, 2012 [facility] [address] [id number] [address] [place] [address], [place] [address] Jun, [facility] [address] [id number] [address] [place] [address], [place] [address] Jun, [facility] [address] [id number] [address] [place] [address], [place] [address] Jun, [facility] [address] [id number] [address] [place] [address], [place] [address] 05 Jun, 2012 [facility] [address] [id number] [address] [place] [address], [place] [address] 05 Jun, 2012 [facility] [address] [id number] [address] [place] [address], [place] [address] Jun, [facility] [address] [id number] [address] [place] [address], [place] [address] Jun, [facility] [address] [id number] [address] [place] [address], [place] [address] May, [facility] [address] [id number] [address] [place] [address], [place] [address] May, [facility] [address] [id number] [address] [place] [address], [place] [address] May, [facility] [address] [id number] [address] [place] [address], [place] [address] May, [facility] [address] [id number] [address] [place] [address], [place] [address] May, [facility] [address] [id number] [address] [place] [address], [place] [address] May, [facility] [address] [address] [id number] [address] [place] [address], [place] [address] May, [facility] [address] [id number] [address] [place] [address], [place] [address] May, [facility] [address] [id number] [address] [place] [address], [place] [address] Apr, [facility] [address] [id number] [address] [place] [address], [place] [address] 30 Apr, 2012 [facility] [address] [id number] [address] [place] [address], [place] [address] 29 Apr, 2012 [facility] [address] [id number] [address] [place] [address], [place] [address] Apr, [facility] [address] [id number] [address] [place] [address], [place] [address] Apr, [facility] [address] [id number] [address] [place] [address] Apr, [facility] [address] [id number] [address] [place] [address], [place] [address] Apr, [facility] [address] [id number] [address] [place] [address], [place] [address] Apr, [facility] [address] [id number] [address] [place] [address], [place] [address] Apr, [facility] [address] [id number] [address] [place] [address], [place] [address] Apr, [facility] [address] [id number] [address] [place] [address], [place] [address] Apr, [facility] [address] [id number] [address] [place] [address], [place] [address] Apr, [facility] [address] [id number] [address] [place] [address], [place] [address] Mar, [facility] [address] [id number] [address] [place] [address], [place] [address] 18 Mar, 2012 [facility] [address] [id number] [address] [place] [address], [place] [address] Mar, [facility] [address] [id number] [address] [place] [address] Mar, [facility] [address] [id number] [address] [place] [id number] Mar, [facility] [address] [id number] [address] [place] [id number] Mar, [facility] [address] [id number] [address] [place] [address] Mar, [facility] [address] [id number] [address] [place] [address] Jan, [facility] [address] [id number] [address] [place] [address] Jan, [facility] [address] [id number] [address] [place] [id number] Jan, [facility] [address] [id number] [address] [place] [address], [place] [id number] Jan, [facility] [address] [id number] [address] [place] [address], [place] [address] Jan, [facility] [address] [id number] [address] [place] [address], [place] [address] Jan, [facility] [address] [id number] [address] [place] [address], [place] [address] Jan, [facility] [address] [id number] [address] [place] [address], [place] [address] Jan, [facility] [address] [id number] [address] [place] [address], [place] [address] Jan, [facility] [address] [id number] [address] [place] [address], [place] [address] Jan, [facility] [address] [id number] [address] [place] [address], [place] [address] Jan, [facility] [address] [id number] [address] [place] [address], [place] [address] Dec, [facility] [address] [id number] [address] [place] [address], [place] [address] Dec, [facility] [address] [id number] [address] [place] [address], [place] [address] Dec, [facility] [address] [id number] [address] [place] [address], [place] [address] Dec, [facility] [address] [id number] [address] [place] [address], [place] [address] Dec, [facility] [address] [id number] [address] [place] [address], [place] [address] Dec, [facility] [address] [id number] [address] [place] [address], [place] [address] Dec, [facility] [address] [id number] [facility] [place] [address] 17 Jan, 2012 [facility] [address] [id number] [address] [place] [address], [place] [address] 16 Jan, 2012 [facility] [address] [id number] [address] [place] [address], [place] [address] 13 Jan, 2012 [facility] [address] [id number] [address] [place] [address], [place] [address] 13 Jan, 2012 [facility] [address] [id number] [address] [place] [address], [place] [address] Dec, [facility] [address] [id number] [address] [place] [address], [place] [address] Dec, [facility] [address] [id number] [address] [place] [address], [place] [address] Dec, [facility] [address] [id number] [address] [place] [address], [place] [address] Dec, [facility] [address] [id number] [address] [place] [address], [place] [address] Dec, [facility] [address] [id number] [address] [place] [address], [place] [address] 15 Dec, 2011 [facility] [address] [id number] [address] [place] [address], [place] [address] 06 Dec, 2011 [facility] [address] [id number] [address] [place] [address], [place] [address] 05 Dec, 2011 [facility] [address] [id number] [address] [place] [address], [place] [address] October, [facility] [address] [id number] [address] [place] [address], [place] [address] October, [facility] [address] [id number] [address] [place] [address], [place] [address] October, [facility] [address] [id number] [address] [place] [address], [place] [address] October, [facility] [address] [id number] [address] [place] [address], [place] [address] October, [facility] [address] [id number] [address] [place] [address], [place] [address] October, [facility] [address] [id number] [address] [place] [address], [place] [address] Oct, [facility] [address] [id number] [address] [place] [address], [place] [address] Oct, [facility] [address] [id number] [address] [place] [address], [place] [address] Oct, [facility] [address] [id number] [address] [place] [address], [place] [address] Oct, [facility] [address] [id number] [address] [place] [address], [place] [address] Oct, [facility] [address] [id number] [address] [place] [address], [place] [address] Oct, [facility] [address] [id number] [address] [place] [address], [place] [address] Oct, [facility] [address] [id number] [address] [place] [address], [place] [address] Aug, [facility] [address] [id number] [address] [place] [address], [place] [address] Aug, [facility] [address] [id number] [address] [place] [address], [place] [address] Aug, [facility] [address] [id number] [address] [place] [address], [place] [address] Aug, [facility] [address] [id number] [address] [place] [address], [place] [address] Aug, [facility] [address] [id number] [address] [place] [address], [place] [address] Aug, [facility] [address] [id number] [address] [place] [address], [place] [address] Aug, [facility] [address] [id number] [address] [place] [address], [place] [address] Aug, [facility] [address] [id number] [address] [place] [address], [place] [address] 08 Aug, 2011 [facility] [address] [id number] [address] [place] [address], [place] [address] Jul, [facility] [address] [id number] [address] [place] [address], [place] [address] Jul, [facility] [address] [id number] [address] [place] [address], [place] [address] Jul, [facility] [address] [id number] [address] [place] [address], [place] [address] Jul, [facility] [address] [id number] [address] [place] [address], [place] [address] Jun, [facility] [address] [id number] [address] [place] [address], [place] [address] Jun, [facility] [address] [id number] [address] [place] [address], [place] [address] May, [facility] [address] [id number] [address] [place] [address], [place] [address] May, [facility] [address] [id number] [address] [place] [address], [place] [address] May, [facility] [address] [id number] [address] [place] [address], [place] [address] May, [facility] [address] [id number] [address] [place] [address], [place] [address] May, [facility] [address] [id number] [address] [place] [address], [place] [address] 28 Apr, 2011 [facility] [address] [id number] [address] [place] [address], [place] [address] Apr, [facility] [address] [id number] [address] [place] [address] Apr, [facility] [address] [id number] [address] [place] [address] Jan, [facility] [address] [id number] [address] [place] [address] Dec, [facility] [address] [id number] [address] [place] [address] October, [facility] [address] [id number] [address] [place] [address] Jun, [facility] [address] [id number] [address] [place] [address] Apr, [facility] [address] [id number] [address] [place] [address] Apr, [facility] [address] [id number] [address] [place] [address] Apr, [facility] [address] [id number] [address] [place] [address] Jun, IMMUNIZATIONS No Known Immunizations SOCIAL HISTORY [...]
--- OUTSIDE RECORDS SUMMARY | 2020-01-25 13:18 | XMS REPORT ---
Author Author Moreno Ana Doctor Organization [facility] Address Unknown Phone Unavailable Care Team Providers Care Aviculturist Name Role Phone Migration, Doctor Unavailable Unavailable PROBLEMS Type Condition ICD9-CM Code SDJ83-GO Code Onset Dates Condition S tatus SNOMED Code Problem Chronic hepatitis C without hepatic coma B18.2 Active 734632978 Problem Cannabis abuse F12.10 Active 35751 009 Problem Bipolar 1 disorder F31.9 Active 3 85742635 Problem Attention deficit hyperactivity disorder (ADHD), combi luciano type F90.2 Active 51365956 Problem Attention deficit R41.840 Active 76 390242 Problem Hot flashes due to menopause N95.1 A ctive 459036732 Problem H/O laminectomy Z98.89 Active 1616 25546 Problem Other chronic pain G89.29 Active 8 0716282 Problem Anxiety disorder, unspecified type F41.9 Active 466840726 Problem Bipolar disorder, in partial remission, most rec ent episode hypomanic F31.71 Active 403777250 ALLERGIES No Information ENCOUNTERS Encounter Location Date Diagnosis [facility] [address] [id number] [address] [place] [id number] Oct, [facility] [address] [facility] [id number] [address] [place] [address] Oct, [facility] [address] [facility] [id number] [address] [place] [address] Aug, [facility] [address] [facility] [id number] [address] [place] [address] Jul, [facility] [address] [facility] [id number] [address] [place] [address] Jul, [facility] [address] [facility] [id number] [address] [place] [address] Apr, [facility] [address] [facility] [id number] [address] [place] [address] Mar, Hot flashes due to menopause N95.1 ; Anxiety disorder, unspecified type F41.9 ; Low back pain M54.5 and Encounter for immunization Z23 [facility] [address] [facility] [id number] [address] [place] [address] Dec, Other chronic pain G89.29 an d Low back pain M54.5 [facility] [address] [facility] [id number] [address] [place] [address] October, [facility] [address] [facility] [id number] [address] [place] [address] October, [facility] [address] [facility] [id number] [address] [place] [address] October, [facility] [address] [facility] [id number] [address] [place] [address] October, Other chronic pain G89.29 an d Chronic hepatitis C without hepatic coma B18.2 [facility] [address] [facility] [id number] [address] [place] [address] Aug, Bipolar disorder, in partial remission, most recent episode hypomanic F31.71 ; Attention deficit hyperactivity disorder (ADHD), combined type F90.2 and Anxiety disorder, unspecified type F41.9 [facility] [address] [facility] [id number] [address] [place] [address] Aug, [facility] [address] [facility] [id number] [address] [place] [address] Aug, Bipolar disorder, in partial remission, most recent episode hypomanic F31.71 [facility] [address] [facility] [id number] [address] [place] [address] Aug, [facility] [address] [facility] [id number] [address] [place] [address] Aug, Bipolar disorder, in partial remission, most recent episode hypomanic F31.71 [facility] [address] [facility] [id number] [address] [place] [address] Aug, Bipolar disorder, in partial remission, most recent episode hypomanic F31.71 ; Attention deficit hyperactivity disorder (ADHD), combined type F90.2 and Anxiety disorder, unspecified type F41.9 [facility] [address] [id number] [address] [place] [address] Aug, Low back pain M54.5 and Pain in left wrist M25.532 [facility] [address] [id number] [address] [place] [address] Aug, [facility] [address] [id number] [address] [place] [address] Jun, [facility] [address] [id number] [address] [place] [address] Apr, Bipolar disorder, in partial remission, most recent episode hypomanic F31.71 [facility] [address] [id number] [address] [place] [address] Apr, 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 [address] [id number] [address] [place] [address] Apr, Bipolar disorder, in partial remission, most recent episode hypomanic F31.71 [facility] [address] [id number] [address] [place] [address] Apr, Bipolar disorder, in partial remission, most recent episode hypomanic F31.71 [facility] [address] [id number] [address] [place] [address] Mar, [facility] [address] [id number] [address] [place] [address] Mar, Bipolar disorder, in partial remission, most recent episode hypomanic F31.71 ; Encounter for immunization Z23 and Low back pain M54.5 [facility] [address] [id number] [address] [place] [address] Mar, Bipolar disorder, in partial remission, most recent episode hypomanic F31.71 [facility] [address] [id number] [address] [place] [address] Mar, Bipolar disorder, in partial remission, most recent episode hypomanic F31.71 [facility] [address] [id number] [address] [place] [address] Jan, Bipolar disorder, in partial remission, most recent episode hypomanic F31.71 [facility] [address] [id number] [address] [place] [address] Jan, Bipolar disorder, in partial remission, most recent episode hypomanic F31.71 [facility] [address] [facility] [id number] [address] [place] [address] Dec, Bipolar disorder, in partial remission, most recent episode hypomanic F31.71 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 [address] [id number] [address] [place] [address] Dec, Bipolar disorder, in partial remission, most recent episode hypomanic F31.71 [facility] [address] [id number] [address] [place] [address] Dec, Bipolar disorder, in partial remission, most recent episode hypomanic F31.71 [facility] [address] [id number] [address] [place] [address] October, Bipolar disorder, in partial remission, most recent episode hypomanic F31.71 [facility] [address] [id number] [address] [place] [address] October, [facility] [address] [id number] [address] [place] [address] October, [facility] [address] [id number] [address] [place] [address] Oct, Bipolar disorder, in partial remission, most recent episode hypomanic F31.71 ; Attention deficit hyperactivity disorder (ADHD), combined type F90.2 ; Anxiety disorder, unspecified type F41.9 and Encounter for drug screening Z02.83 [facility] [address] [id number] [address] [place] [address] Oct, Bipolar disorder, in partial remission, most recent episode hypomanic F31.71 [facility] [address] [facility] [id number] [address] [place] [address] Oct, Bipolar disorder, in partial remission, most recent episode hypomanic F31.71 [facility] [address] [facility] [id number] [address] [place] [address] Aug, Bipolar disorder, in partial remission, most recent episode hypomanic F31.71 [facility] [address] [facility] [id number] [address] [place] [address] Aug, Bipolar disorder, in partial remission, most recent episode hypomanic F31.71 [facility] [address] [facility] [id number] [address] [place] [address] Aug, Bipolar disorder, in partial remission, most recent episode hypomanic F31.71 [facility] [address] [id number] [address] [place] [address] Jul, Bipolar disorder, in partial remission, most recent episode hypomanic F31.71 ; Attention deficit hyperactivity disorder (ADHD), combined type F90.2 and Anxiety disorder, unspecified type F41.9 [facility] [address] [id number] [address] [place] [address] Jul, Bipolar disorder, in partial remission, most recent episode hypomanic F31.71 [facility] [address] [id number] [address] [place] [address] Jun, Bipolar disorder, in partial remission, most recent episode hypomanic F31.71 [facility] [address] [id number] [address] [place] [address] May, Bipolar disorder, in partial remission, most recent episode hypomanic F31.71 [facility] [address] [id number] [address] [place] [address] May, Bipolar disorder, in partial remission, most recent episode hypomanic F31.71 [facility] [address] [id number] [address] [place] [address] Apr, [facility] [address] [facility] [id number] [address] [place] [address] Apr, Bipolar disorder, in partial remission, most recent episode hypomanic F31.71 ; Attention deficit hyperactivity disorder (ADHD), combined type F90.2 ; Anxiety disorder, unspecified type F41.9 and Cannabis abuse F12.10 [facility] [address] [id number] [address] [place] [address] Apr, Attention deficit hyperactiv ity disorder (ADHD), combined type F90.2 [facility] [address] [facility] [id number] [address] [place] [address] Mar, Attention deficit hyperactiv ity disorder (ADHD), combined type F90.2 [facility] [address] [facility] [id number] [address] [place] [address] 14 Mar, 2017 Anxiety disorder, unspecifie d type F41.9 [facility] [address] [facility] [id number] [address] [place] [id number] 18 Jan, 2017 Attention deficit hyperactiv ity disorder (ADHD), combined type F90.2 [facility] [address] [facility] [id number] [address] [place] [id number] 16 Jan, 2017 Anxiety disorder, unspecifie d type F41.9 [place] [id number] [facility] [id number] [address] [place] [address] Jan, Other chronic pain G89.29 ; Chronic hepatitis C without hepatic coma B18.2 and Bipolar [address] [facility] [address] [facility] [id number] [address] [place] [id number] Dec, Attention deficit hyperactiv ity disorder (ADHD), combined type F90.2 [facility] [address] [facility] [id number] [address] [place] [address] Dec, Bipolar disorder, in partial remission, most recent episode hypomanic F31.71 ; Attention deficit hyperactivity disorder (ADHD), combined type F90.2 and Anxiety disorder, unspecified type F41.9 [place] [address] [facility] [id number] [address] [place] [address] Dec, Bipolar disorder, in partial remission, most recent episode hypomanic F31.71 ; Attention deficit hyperactivity disorder (ADHD), combined type F90.2 and Anxiety disorder, unspecified type F41.9 [facility] [address] [place] [id number] [address] [place] [address] Dec, Bipolar 1 disorder F31.9 and Attention deficit R41.840 [place] [address] [place] [id number] [address] [place] [address] Oct, Other chronic pain G89.29 ; Alopecia L65.9 and Screening, lipid Z13.220 [place] [address] [facility] [id number] [address] [place] [address] Oct, [place] [address] [place] [id number] [address] [place] [address] Aug, [place] [address] [place] [id number] [address] [place] [address] Aug, Eustachian tube dysfunction, right H69.81 ; Vertigo R42 and Other chronic pain G89.29 [place] [address] [place] [id number] [address] [place] [address] Aug, [facility] [address] [id number] [address] [place] [address] Jun, [facility] [address] [id number] [address] [place] [address] Jun, Low back pain M54.5 and Othe r chronic pain G89.29 [facility] [address] [id number] [address] [place] [address] Jun, [facility] [address] [id number] [address] [place] [address] May, [facility] [address] [id number] [address] [place] [address] Jan, [facility] [address] [id number] [address] [place] [address] Dec, [facility] [address] [id number] [address] [place] [address] Dec, [facility] [address] [id number] [address] [place] [address] Jun, [facility] [address] [id number] [address] [place] [address] Apr, Eustachian tube dysfunction, unspecified laterality H69.80 ; Hot flashes N95.1 and Encounter for immunization Z23 [facility] [address] [id number] [address] [place] [address] Jan, [facility] [address] [id number] [address] [place] [address] Jan, [facility] [address] [id number] [address] [place] [address] Jan, [facility] [address] [facility] [id number] [address] [place] [address] Jan, [facility] [address] [id number] [address] [place] [address] Jan, Encounter to establish care V65.8 ; Bipolar 1 disorder 296.7 ; Abdominal pain 789.00 ; Constipation 564.00 ; Hard of hearing 389.[address] [facility] [address] [id number] [place] [address] Dec, [facility] [address] [facility] [id number] [address] [place] [address] October, [facility] [address] [id number] [address] [place] [address] October, [facility] [address] [id number] [address] [place] [address] Oct, [facility] [address] [id number] [address] [place] [address] Oct, [facility] [address] [facility] [id number] [address] [place] [address] Oct, [facility] [address] [id number] [address] [place] [address] Aug, [facility] [address] [id number] [address] [place] [address] Aug, [facility] [address] [facility] [id number] [address] [place] [address] Aug, [facility] [address] [id number] [address] [place] [address] Aug, [facility] [address] [id number] [address] [place] [address] Aug, [facility] [address] [id number] [address] [place] [address] Aug, [facility] [address] [id number] [address] [place] [address] Aug, [facility] [address] [id number] [address] [place] [address] Aug, [facility] [address] [id number] [address] [place] [address], [place] [address] Aug, 2014 [facility] [address] [id number] [address] [place] [address], [place] [address] Aug, 2014 [facility] [address] [id number] [address] [place] [address], [place] [address] Aug, 2014 [facility] [address] [id number] [address] [place] [address], [place] [address] Aug, 2014 [facility] [address] [id number] [address] [place] [address], [place] [address] Aug, 2014 [facility] [address] [id number] [address] [place] [address], [place] [address] Aug, 2014 [facility] [address] [id number] [address] [place] [address], [place] [address] Aug, [facility] [address] [id number] [address] [place] [address], [place] [address] Jul, [facility] [address] [id number] [address] [place] [address], [place] [address] Jul, [facility] [address] [id number] [address] [place] [address], [place] [address] Jul, [facility] [address] [id number] [address] [place] [address], [place] [address] Jul, [facility] [address] [id number] [address] [place] [address], [place] [address] Jul, [facility] [address] [id number] [address] [place] [address], [place] [address] Jul, [facility] [address] [id number] [address] [place] [address], [place] [address] Jul, [facility] [address] [id number] [address] [place] [address], [place] [address] Jul, [facility] [address] [id number] [address] [place] [address], [place] [address] Jun, [facility] [address] [id number] [address] [place] [address], [place] [address] Jun, [facility] [address] [id number] [address] [place] [address], [place] [address] Jun, [facility] [address] [id number] [address] [place] [address], [place] [address] Jun, [facility] [address] [id number] [address] [place] [address], [place] [address] Jun, [facility] [address] [id number] [address] [place] [address], [place] [address] Jun, [facility] [address] [id number] [address] [place] [address], [place] [address] Jun, [facility] [address] [id number] [address] [place] [address], [place] [address] Jun, [facility] [address] [id number] [address] [place] [address], [place] [address] Jun, [facility] [address] [id number] [address] [place] [address], [place] [address] Jun, [facility] [address] [id number] [address] [place] [address], [place] [address] Jun, [facility] [address] [id number] [address] [place] [address], [place] [address] May, [facility] [address] [id number] [address] [place] [address], [place] [address] May, [facility] [address] [id number] [address] [place] [address], [place] [address] May, [facility] [address] [id number] [address] [place] [address], [place] [address] May, [facility] [address] [id number] [address] [place] [address], [place] [address] May, [facility] [address] [id number] [address] [place] [address], [place] [address] May, [facility] [address] [id number] [address] [place] [address], [place] [address] May, [facility] [address] [id number] [address] [place] [address], [place] [address] Apr, [facility] [address] [id number] [address] [place] [address], [place] [address] Apr, [facility] [address] [id number] [address] [place] [address], [place] [address] Apr, [facility] [address] [id number] [address] [place] [address], [place] [address] Apr, [facility] [address] [id number] [address] [place] [address], [place] [address] Apr, [facility] [address] [id number] [address] [place] [address], [place] [address] Apr, [facility] [address] [id number] [address] [place] [address], [place] [id number] Mar, [facility] [address] [id number] [address] [place] [address], [place] [address] Mar, [facility] [address] [id number] [address] [place] [address], [place] [address] Mar, [facility] [address] [id number] [address] [place] [address], [place] [address] Mar, [facility] [address] [id number] [address] [place] [address], [place] [address] Mar, [facility] [address] [id number] [address] [place] [address], [place] [address] Mar, [facility] [address] [id number] [address] [place] [address], [place] [address] Jan, [facility] [address] [id number] [address] [place] [address], [place] [address] Jan, [facility] [address] [id number] [address] [place] [address], [place] [id number] Jan, [facility] [address] [id number] [address] [place] [address], [place] [address] Jan, [facility] [address] [id number] [address] [place] [address], [place] [address] Dec, [facility] [address] [id number] [address] [place] [address], [place] [address] Dec, [facility] [address] [id number] [address] [place] [address], [place] [address] Dec, [facility] [address] [id number] [address] [place] [address], [place] [id number] Dec, [facility] [address] [id number] [address] [place] [address], [place] [id number] Dec, [facility] [address] [id number] [address] [place] [address], [place] [id number] Dec, [facility] [address] [id number] [address] [place] [address], [place] [address] Dec, [facility] [address] [id number] [address] [place] [address], [place] [address] Dec, [facility] [address] [id number] [address] [place] [address], [place] [address] Dec, [facility] [address] [id number] [address] [place] [address], [place] [address] Dec, [facility] [address] [id number] [address] [place] [address], [place] [address] Dec, [facility] [address] [id number] [address] [place] [address], [place] [address] Dec, [facility] [address] [id number] [address] [place] [address], [place] [address] October, [facility] [address] [id number] [address] [place] [address], [place] [address] October, [facility] [address] [id number] [address] [place] [address], [place] [address] October, [facility] [address] [id number] [address] [place] [address], [place] [address] October, [facility] [address] [id number] [address] [place] [address], [place] [address] October, [facility] [address] [id number] [address] [place] [address], [place] [address] October, [facility] [address] [id number] [address] [place] [address], [place] [address] Oct, [facility] [address] [id number] [address] [place] [address], [place] [address] Oct, [facility] [address] [id number] [address] [place] [address], [place] [address] Oct, [facility] [address] [id number] [address] [place] [address], [place] [address] Oct, [facility] [address] [id number] [address] [place] [address], [place] [address] Oct, [facility] [address] [id number] [address] [place] [address], [place] [address] Oct, [facility] [address] [id number] [address] [place] [address], [place] [address] Oct, [facility] [address] [id number] [address] [place] [address], [place] [address] Oct, [facility] [address] [id number] [address] [place] [address], [place] [address] Oct, [facility] [address] [id number] [address] [place] [address], [place] [address] Oct, [facility] [address] [id number] [address] [place] [address], [place] [address] Oct, [facility] [address] [id number] [facility] [address] 08 Oct, 2013 [facility] [address] [id number] [facility] [address] 15 Aug, 2013 [facility] [address] [id number] [facility] [address] 15 Aug, 2013 [facility] [address] [id number] [address] [place] [address], [place] [address] Aug, [facility] [address] [id number] [address] [place] [address], [place] [address] Aug, [facility] [address] [id number] [address] [place] [address], [place] [address] Aug, [facility] [address] [id number] [address] [place] [address], [place] [address] Aug, [facility] [address] [id number] [address] [place] [address], [place] [address] Aug, [facility] [address] [id number] [address] [place] [address], [place] [address] Aug, [facility] [address] [id number] [address] [place] [address], [place] [address] Aug, [facility] [address] [id number] [address] [place] [address], [place] [address] Aug, [facility] [address] [id number] [address] [place] [address], [place] [address] Aug, [facility] [address] [id number] [address] [place] [address], [place] [address] Aug, [facility] [address] [id number] [address] [place] [address], [place] [address] Aug, [facility] [address] [id number] [address] [place] [address], [place] [address] Aug, [facility] [address] [id number] [address] [place] [address], [place] [address] 14 Aug, 2013 [facility] [address] [id number] [address] [place] [address], [place] [address] 14 Aug, 2013 [facility] [address] [id number] [address] [place] [address], [place] [address] 14 Aug, 2013 [facility] [address] [id number] [address] [place] [address], [place] [address] 14 Aug, 2013 [facility] [address] [id number] [address] [place] [address], [place] [address] 07 Aug, 2013 [facility] [address] [id number] [address] [place] [address], [place] [address] 07 Aug, 2013 [facility] [address] [id number] [address] [place] [address], [place] [address] 06 Aug, 2013 [facility] [address] [id number] [address] [place] [address], [place] [address] 06 Aug, 2013 [facility] [address] [id number] [address] [place] [address], [place] [address] 04 Aug, 2013 [facility] [address] [id number] [address] [place] [address], [place] [address] 04 Aug, 2013 [facility] [address] [id number] [address] [place] [address], [place] [address] Aug, [facility] [address] [id number] [address] [place] [address], [place] [address] Jul, [facility] [address] [id number] [address] [place] [address], [place] [address] Jul, [facility] [address] [id number] [address] [place] [address], [place] [address] Jul, [facility] [address] [id number] [address] [place] [address], [place] [address] Jul, [facility] [address] [id number] [address] [place] [address], [place] [address] Jul, [facility] [address] [id number] [address] [place] [address], [place] [address] Jul, [facility] [address] [id number] [address] [place] [address], [place] [address] Jul, [facility] [address] [id number] [address] [place] [address], [place] [address] Jul, [facility] [address] [id number] [address] [place] [address], [place] [address] Jul, [facility] [address] [id number] [address] [place] [address], [place] [address] Jul, [facility] [address] [id number] [address] [place] [address], [place] [address] Jul, [facility] [address] [id number] [address] [place] [address], [place] [address] Jul, [facility] [address] [id number] [address] [place] [address], [place] [address] Jul, [facility] [address] [id number] [address] [place] [address], [place] [address] Jul, [facility] [address] [id number] [address] [place] [address], [place] [address] Jul, [facility] [address] [id number] [address] [place] [address], [place] [address] Jul, [facility] [address] [id number] [address] [place] [address], [place] [address] Jul, [facility] [address] [id number] [address] [place] [address], [place] [address] Jul, [facility] [address] [id number] [address] [place] [address], [place] [address] Jul, [facility] [address] [id number] [address] [place] [address], [place] [address] Jul, [facility] [address] [id number] [address] [place] [address], [place] [address] 31 Jun, 2013 [facility] [address] [id number] [address] [place] [address], [place] [address] 31 Jun, 2013 [facility] [address] [id number] [address] [place] [address], [place] [address] Jun, [facility] [address] [id number] [address] [place] [address], [place] [address] Jun, [facility] [address] [id number] [address] [place] [address], [place] [address] Jun, [facility] [address] [id number] [address] [place] [address], [place] [address] Jun, [facility] [address] [id number] [address] [place] [address], [place] [address] Jun, [facility] [address] [id number] [address] [place] [address], [place] [address] Jun, [facility] [address] [id number] [address] [place] [address], [place] [address] Jun, [facility] [address] [id number] [address] [place] [address], [place] [address] Jun, [facility] [address] [id number] [address] [place] [address], [place] [address] Jun, [facility] [address] [id number] [address] [place] [address], [place] [address] Jun, [facility] [address] [id number] [address] [place] [address], [place] [address] Jun, [facility] [address] [id number] [address] [place] [address], [place] [address] Jun, [facility] [address] [id number] [address] [place] [address], [place] [address] Jun, [facility] [address] [id number] [address] [place] [address], [place] [address] 18 Jun, 2013 [facility] [address] [id number] [address] [place] [address], [place] [address] 18 Jun, 2013 [facility] [address] [id number] [address] [place] [address], [place] [address] 17 Jun, 2013 [facility] [address] [id number] [address] [place] [address], [place] [address] 17 Jun, 2013 [facility] [address] [id number] [address] [place] [address], [place] [address] 13 Jun, 2013 [facility] [address] [id number] [address] [place] [address], [place] [address] 12 Jun, 2013 [facility] [address] [id number] [address] [place] [address], [place] [address] 12 Jun, 2013 [facility] [address] [id number] [address] [place] [address], [place] [address] 09 Jun, 2013 [facility] [address] [id number] [address] [place] [address], [place] [address] 05 Jun, 2013 [facility] [address] [id number] [address] [place] [address], [place] [address] 05 Jun, 2013 [facility] [address] [id number] [address] [place] [address], [place] [address] 04 Jun, 2013 [facility] [address] [id number] [address] [place] [address], [place] [address] 04 Jun, 2013 [facility] [address] [id number] [address] [place] [address], [place] [address] May, [facility] [address] [id number] [address] [place] [address], [place] [address] 17 May, 2013 [facility] [address] [id number] [address] [place] [address], [place] [address] May, [facility] [address] [id number] [address] [place] [address], [place] [address] May, [facility] [address] [id number] [address] [place] [address] [address] May, [facility] [address] [id number] [address] [place] [address], [place] [address] May, [facility] [address] [id number] [address] [place] [address], [place] [address] Apr, [facility] [address] [id number] [address] [place] [address], [place] [address] Apr, [facility] [address] [id number] [address] [place] [address], [place] [address] Apr, [facility] [address] [id number] [address] [place] [address], [place] [address] Apr, [facility] [address] [id number] [address] [place] [address], [place] [address] Apr, [facility] [address] [id number] [address] [place] [address], [place] [address] Apr, [facility] [address] [id number] [address] [place] [address], [place] [address] 15 Apr, 2013 [facility] [address] [id number] [address] [place] [address], [place] [address] Apr, [facility] [address] [id number] [address] [place] [address] 26 Mar, 2013 [facility] [address] [id number] [address] [place] [address] 24 Sep, 2012 [facility] [address] [id number] [address] [place] [address] 17 Sep, 2012 [facility] [address] [id number] [address] [place] [address], [place] [address] 17 Sep, 2012 [facility] [address] [id number] [address] [place] [address] 11 Sep, 2012 [facility] [address] [id number] [address] [place] [address], [place] [address] 10 Mar, 2012 [facility] [address] [id number] [address] [place] [address], [place] [address] 05 Mar, 2013 [facility] [address] [id number] [address] [place] [address], [place] [address] 04 Mar, 2013 [facility] [address] [id number] [address] [place] [address], [place] [address] Jan, [facility] [address] [id number] [address] [place] [address], [place] [address] Jan, [facility] [address] [id number] [address] [place] [address], [place] [address] Jan, [facility] [address] [id number] [address] [place] [address], [place] [address] Jan, [facility] [address] [id number] [address] [place] [address], [place] [address] Jan, [facility] [address] [id number] [address] [place] [address], [place] [address] Jan, [facility] [address] [id number] [address] [place] [address], [place] [address] Dec, [facility] [address] [id number] [address] [place] [address], [place] [address] 24 Dec, 2012 [facility] [address] [id number] [address] [place] [address], [place] [address] Dec, [facility] [address] [id number] [address] [place] [address], [place] [address] Dec, [facility] [address] [id number] [address] [place] [address], [place] [address] 18 Dec, 2012 [facility] [address] [id number] [address] [place] [address], [place] [address] 17 Dec, 2012 [facility] [address] [id number] [address] [place] [address], [place] [address] 16 Dec, 2012 [facility] [address] [id number] [address] [place] [address], [place] [address] 16 Dec, 2012 [facility] [address] [id number] [address] [place] [address], [place] [address] 15 Dec, 2012 [facility] [address] [id number] [address] [place] [address], [place] [address] Dec, [facility] [address] [id number] [address] [place] [address], [place] [address] Dec, [facility] [address] [id number] [address] [place] [address], [place] [address] Dec, [facility] [address] [id number] [address] [place] [address], [place] [address] Dec, [facility] [address] [id number] [address] [place] [address], [place] [address] Dec, [facility] [address] [id number] [address] [place] [address], [place] [address] Dec, [facility] [address] [id number] [address] [place] [address], [place] [address] Dec, [facility] [address] [id number] [address] [place] [address], [place] [address] October, [facility] [address] [id number] [address] [place] [address], [place] [address] October, [facility] [address] [id number] [address] [place] [address], [place] [address] October, [facility] [address] [id number] [address] [place] [address], [place] [address] October, [facility] [address] [id number] [address] [place] [address], [place] [address] October, [facility] [address] [id number] [address] [place] [address], [place] [address] October, [facility] [address] [id number] [address] [place] [address], [place] [address] October, [facility] [address] [id number] [address] [place] [address], [place] [address] 29 Oct, 2012 [facility] [address] [id number] [address] [place] [address], [place] [address] Oct, [facility] [address] [id number] [address] [place] [address], [place] [address] 24 Oct, 2012 [facility] [address] [id number] [address] [place] [address], [place] [address] Oct, [facility] [address] [id number] [address] [place] [address], [place] [address] Oct, [facility] [address] [id number] [address] [place] [address], [place] [address] 18 Oct, 2012 [facility] [address] [id number] [address] [place] [address], [place] [address] 17 Oct, 2012 [facility] [address] [id number] [address] [place] [address], [place] [address] 15 Oct, 2012 [facility] [address] [id number] [address] [place] [address], [place] [address] Oct, [facility] [address] [id number] [address] [place] [address], [place] [address] Oct, [facility] [address] [id number] [address] [place] [address], [place] [address] Oct, [facility] [address] [id number] [address] [place] [address], [place] [address] Oct, [facility] [address] [id number] [address] [place] [address], [place] [address] Aug, [facility] [address] [id number] [address] [place] [address], [place] [address] Aug, [facility] [address] [id number] [address] [place] [address], [place] [address] Aug, [facility] [address] [id number] [address] [place] [address], [place] [address] Aug, [facility] [address] [id number] [address] [place] [address], [place] [address] 05 Aug, 2012 [facility] [address] [id number] [address] [place] [address], [place] [address] 05 Aug, 2012 [facility] [address] [id number] [address] [place] [address], [place] [address] 20 Aug, 2012 [facility] [address] [id number] [address] [place] [address], [place] [address] 14 Aug, 2012 [facility] [address] [id number] [address] [place] [address], [place] [address] 12 Aug, 2012 [facility] [address] [id number] [address] [place] [address], [place] [address] 11 Aug, 2012 [facility] [address] [id number] [address] [place] [address], [place] [address] 29 Jul, 2012 [facility] [address] [id number] [address] [place] [address], [place] [address] 15 Jul, 2012 [facility] [address] [id number] [address] [place] [address], [place] [address] 08 Jul, 2012 [facility] [address] [id number] [address] [place] [address], [place] [address] 20 Jun, 2012 [facility] [address] [id number] [address] [place] [address], [place] [address] 18 Jun, 2012 [facility] [address] [id number] [address] [place] [address], [place] [address] 18 Jun, 2012 [facility] [address] [id number] [address] [place] [address], [place] [address] 18 Jun, 2012 [facility] [address] [id number] [address] [place] [address], [place] [address] 18 Jun, 2012 [facility] [address] [id number] [address] [place] [address], [place] [address] 14 Jun, 2012 [facility] [address] [id number] [address] [place] [address] [address] 14 Jun, 2012 [facility] [address] [id number] [address] [place] [address], [place] [address] 13 Jun, 2012 [facility] [address] [id number] [address] [place] [address], [place] [id number] 13 Jun, 2012 [facility] [address] [id number] [address] [place] [address], [place] [address] 11 Jun, 2012 [facility] [address] [id number] [address] [place] [address], [place] [address] 11 Jun, 2012 [facility] [address] [id number] [address] [place] [address], [place] [address] Jun, [facility] [address] [id number] [address] [place] [address], [place] [address] Jun, [facility] [address] [id number] [address] [place] [address], [place] [address] 07 Jun, 2012 [facility] [address] [id number] [address] [place] [address], [place] [address] 07 Jun, 2012 [facility] [address] [id number] [address] [place] [address], [place] [address] Jun, [facility] [address] [id number] [address] [place] [address], [place] [address] 06 Jun, 2012 [facility] [address] [id number] [address] [place] [address], [place] [address] Jun, [facility] [address] [id number] [address] [place] [address], [place] [address] Jun, [facility] [address] [id number] [address] [place] [address], [place] [address] Jun, [facility] [address] [id number] [address] [place] [address], [place] [address] 05 Jun, 2012 [facility] [address] [id number] [address] [place] [address] [address] Jun, [facility] [address] [id number] [address] [place] [address], [place] [address] Jun, [facility] [address] [id number] [address] [place] [address], [place] [address] May, [facility] [address] [id number] [address] [place] [address], [place] [address] May, [facility] [address] [id number] [address] [place] [address], [place] [address] May, [facility] [address] [id number] [address] [place] [address], [place] [address] May, [facility] [address] [id number] [address] [place] [address], [place] [address] May, [facility] [address] [id number] [address] [place] [address], [place] [address] May, [facility] [address] [id number] [address] [place] [address], [place] [address] May, [facility] [address] [id number] [address] [place] [address], [place] [address] May, [facility] [address] [id number] [address] [place] [address], [place] [address] Apr, [facility] [address] [id number] [address] [place] [address], [place] [address] Apr, [facility] [address] [id number] [address] [place] [address], [place] [address] 29 Apr, 2012 [facility] [address] [id number] [address] [place] [address] Apr, [facility] [address] [id number] [address] [place] [address], [place] [address] Apr, [facility] [address] [id number] [address] [place] [address], [place] [address] Apr, [facility] [address] [id number] [address] [place] [address] Apr, [facility] [address] [id number] [address] [place] [address], [place] [address] Apr, [facility] [address] [id number] [address] [place] [address], [place] [address] Apr, [facility] [address] [id number] [address] [place] [address], [place] [address] Apr, [facility] [address] [id number] [address] [place] [address], [place] [address] Apr, [facility] [address] [id number] [address] [place] [address], [place] [address] Apr, [facility] [address] [id number] [address] [place] [address], [place] [address] Mar, [facility] [address] [id number] [address] [place] [address], [place] [address] 18 Mar, 2012 [facility] [address] [id number] [address] [place] [address] Mar, [facility] [address] [id number] [address] [place] [address], [place] [address] Mar, [facility] [address] [id number] [address] [place] [id number] Mar, [facility] [address] [id number] [address] [place] [id number] Mar, [facility] [address] [id number] [address] [place] [id number] Mar, [facility] [address] [id number] [address] [place] [address] Jan, [facility] [address] [id number] [address] [place] [phone] Jan, [facility] [address] [id number] [address] [place] [id number] Jan, [facility] [address] [id number] [address] [place] [id number] Jan, [facility] [address] [id number] [address] [place] [address], [place] [address] Jan, [facility] [address] [id number] [address] [place] [address], [place] [address] Jan, [facility] [address] [id number] [address] [place] [address], [place] [address] Jan, [facility] [address] [id number] [address] [place] [address], [place] [address] Jan, [facility] [address] [id number] [address] [place] [address], [place] [address] Jan, [facility] [address] [id number] [address] [place] [address], [place] [address] Jan, [facility] [address] [id number] [address] [place] [address], [place] [address] Jan, [facility] [address] [id number] [address] [place] [address], [place] [address] Dec, [facility] [address] [id number] [address] [place] [address], [place] [address] Dec, [facility] [address] [id number] [address] [place] [address], [place] [address] Dec, [facility] [address] [id number] [address] [place] [address], [place] [address] Dec, [facility] [address] [id number] [address] [place] [address], [place] [address] Dec, [facility] [address] [id number] [address] [place] [address], [place] [address] Dec, [facility] [address] [id number] [address] [place] [address], [place] [address] Dec, [facility] [address] [id number] [address] [place] [address], [place] [address] Dec, [facility] [address] [id number] [address] [place] [address], [place] [address] 16 Jan, 2012 [facility] [address] [id number] [address] [place] [address], [place] [address] 13 Jan, 2012 [facility] [address] [id number] [address] [place] [address], [place] [address] 13 Jan, 2012 [facility] [address] [id number] [address] [place] [address], [place] [address] Dec, [facility] [address] [id number] [address] [place] [address], [place] [address] Dec, [facility] [address] [id number] [address] [place] [address], [place] [address] Dec, [facility] [address] [id number] [address] [place] [address], [place] [address] Dec, [facility] [address] [id number] [address] [place] [address], [place] [address] Dec, [facility] [address] [id number] [address] [place] [address], [place] [address] Dec, [facility] [address] [id number] [address] [place] [address], [place] [address] Dec, [facility] [address] [id number] [address] [place] [address], [place] [address] Dec, [facility] [address] [id number] [address] [place] [address], [place] [address] October, [facility] [address] [id number] [address] [place] [address], [place] [address] October, [facility] [address] [id number] [address] [place] [address], [place] [address] October, [facility] [address] [id number] [address] [place] [address], [place] [address] October, [facility] [address] [id number] [address] [place] [address], [place] [address] October, [facility] [address] [id number] [address] [place] [address], [place] [address] October, [facility] [address] [id number] [address] [place] [address], [place] [address] Oct, [facility] [address] [id number] [address] [place] [address], [place] [address] Oct, [facility] [address] [id number] [address] [place] [address], [place] [address] Oct, [facility] [address] [id number] [address] [place] [address], [place] [address] Oct, [facility] [address] [id number] [address] [place] [address], [place] [address] Oct, [facility] [address] [id number] [address] [place] [address], [place] [address] Oct, [facility] [address] [id number] [address] [place] [address], [place] [address] Oct, [facility] [address] [id number] [address] [place] [address], [place] [address] Aug, [facility] [address] [id number] [address] [place] [address], [place] [address] Aug, [facility] [address] [id number] [address] [place] [address], [place] [address] Aug, [facility] [address] [id number] [address] [place] [address], [place] [address] Aug, [facility] [address] [id number] [address] [place] [address], [place] [address] Aug, [facility] [address] [id number] [address] [place] [address], [place] [address] Aug, [facility] [address] [id number] [address] [place] [address], [place] [address] Aug, [facility] [address] [id number] [address] [place] [address], [place] [address] Aug, [facility] [address] [id number] [address] [place] [address], [place] [address] Aug, [facility] [address] [id number] [address] [place] [address], [place] [address] Jul, [facility] [address] [id number] [address] [place] [address], [place] [address] Jul, [facility] [address] [id number] [address] [place] [address], [place] [address] Jul, [facility] [address] [id number] [address] [place] [address], [place] [address] Jul, [facility] [address] [id number] [address] [place] [address], [place] [address] Jun, [facility] [address] [id number] [address] [place] [address], [place] [address] Jun, [facility] [address] [id number] [address] [place] [address], [place] [address] May, [facility] [address] [id number] [address] [place] [address], [place] [address] May, [facility] [address] [id number] [address] [place] [address], [place] [address] May, [facility] [address] [id number] [address] [place] [address], [place] [address] May, [facility] [address] [id number] [address] [place] [address], [place] [address] May, [facility] [address] [id number] [address] [place] [address], [place] [address] 28 Apr, 2011 [facility] [address] [id number] [address] [place] [address], [place] [address] 28 Apr, 2011 [facility] [address] [id number] [address] [place] [address], [place] [address] 10 Apr, 2011 [facility] [address] [id number] [address] [place] [address] Jan, [facility] [address] [id number] [address] [place] [address] Dec, [facility] [address] [id number] [address] [place] [address] October, [facility] [address] [facility] [id number] [address] [place] [address] Jun, [facility] [address] [id number] [address] [place] [address] Apr, [facility] [address] [facility] [id number] [address] [place] [address] Apr, [facility] [address] [facility] [id number] [address] [place] [address] Apr, [facility] [address] [facility] [id number] [address] [place] [address] Jun, IMMUNIZATIONS No Known Immunizations SOCIAL HISTORY [...]
--- OUTSIDE RECORDS SUMMARY | 2020-01-25 13:19 | XMS REPORT ---
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 Role Phone MELISA Iraheta Unavailable PROBLEMS Type Condition ICD9-CM Code PCA91-IE Code Onset Dates Condition S tatus SNOMED Code Problem Chronic hepatitis C without hepatic coma B18.2 Active 076966973 Problem Cannabis abuse F12.10 Active 76080 009 Problem Bipolar 1 disorder F31.9 Active 3 08693472 Problem Attention deficit hyperactivity disorder (ADHD), combi luciano type F90.2 Active 09464732 Problem Attention deficit R41.840 Active 76 693348 Problem Hot flashes due to menopause N95.1 A ctive 623782806 Problem H/O laminectomy Z98.89 Active 1616 36631 Problem Other chronic pain G89.29 Active 8 6890992 Problem Anxiety disorder, unspecified type F41.9 Active 372022635 Problem Bipolar disorder, in partial remission, most rec ent episode hypomanic F31.71 Active [id number] ALLERGIES No Information ENCOUNTERS Encounter Location Date Diagnosis [facility] [address] [id number] [place] [id number] Oct, [facility] [address] [facility] [id number] [address] [place] [id number] Oct, [facility] [address] [facility] [id number] [address] [place] [phone] Aug, [facility] [address] [facility] [id number] [address] [place] [phone] Jul, [facility] [address] [facility] [id number] [address] [place] [id number] Jul, [facility] [address] [facility] [id number] [address] [place] [id number] Apr, [facility] [address] [id number] [address] [place] [phone] Mar, Hot flashes due to menopause N95.1 ; Anxiety disorder, unspecified type F41.9 ; Low back pain M54.5 and Encounter for immunization Z23 [facility] [address] [id number] [address] [place] [phone] Dec, Other chronic pain G89.29 an d Low back pain M54.5 [facility] [address] [id number] [address] [place] [id number] October, [facility] [address] [id number] [address] [place] [phone] October, [facility] [address] [id number] [address] [place] [phone] October, [facility] [address] [facility] [id number] [address] [place] [phone] October, Other chronic pain G89.29 an d Chronic hepatitis C without hepatic coma B18.2 [facility] [address] [id number] [address] [place] [address] Aug, Bipolar disorder, in partial remission, most recent episode hypomanic F31.71 ; Attention deficit hyperactivity disorder (ADHD), combined type F90.2 and Anxiety disorder, unspecified type F41.9 [facility] [address] [id number] [address] [place] [id number] Aug, [facility] [address] [id number] [address] [place] [phone] Aug, Bipolar disorder, in partial remission, most recent episode hypomanic F31.71 [facility] [address] [facility] [id number] [address] [place] [phone] Aug, [facility] [address] [facility] [id number] [address] [place] [id number] Aug, Bipolar disorder, in partial remission, most recent episode hypomanic F31.71 [facility] [address] [id number] [address] [place] [id number] Aug, Bipolar disorder, in partial remission, most recent episode hypomanic F31.71 ; Attention deficit hyperactivity disorder (ADHD), combined type F90.2 and Anxiety disorder, unspecified type F41.9 [facility] [address] [id number] [address] [place] [address] Aug, Low back pain M54.5 and Pain in left wrist M25.532 [facility] [address] [id number] [address] [place] [phone] Aug, [facility] [address] [id number] [address] [place] [phone] Jun, [facility] [address] [id number] [address] [place] [address] Apr, Bipolar disorder, in partial remission, most recent episode hypomanic F31.71 [facility] [address] [id number] [address] [place] [phone] Apr, [facility] [address] [id number] [address] [place] [id number] Apr, Bipolar disorder, in partial remission, most recent episode hypomanic F31.71 ; Attention deficit hyperactivity disorder (ADHD), combined type F90.2 ; Anxiety disorder, unspecified type F41.9 and 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 [facility] [address] [id number] [address] [place] [phone] Apr, Bipolar disorder, in partial remission, most recent episode hypomanic F31.71 [facility] [address] [id number] [address] [place] [phone] Apr, Bipolar disorder, in partial remission, most recent episode hypomanic F31.71 [facility] [address] [id number] [address] [place] [phone] Mar, [facility] [address] [facility] [id number] [address] [place] [address] Mar, Bipolar disorder, in partial remission, most recent episode hypomanic F31.71 ; Encounter for immunization Z23 and Low back pain M54.5 [facility] [address] [id number] [address] [place] [address] Mar, Bipolar disorder, in partial remission, most recent episode hypomanic F31.71 [facility] [address] [id number] [address] [place] [id number] Mar, Bipolar disorder, in partial remission, most recent episode hypomanic F31.71 [facility] [address] [id number] [address] [place] [phone] Jan, Bipolar disorder, in partial remission, most recent episode hypomanic F31.71 [facility] [address] [facility] [id number] [address] [place] [id number] Jan, Bipolar disorder, in partial remission, most recent episode hypomanic F31.71 [facility] [address] [facility] [id number] [address] [place] [phone] Dec, Bipolar disorder, in partial remission, most recent episode hypomanic F31.71 [facility] [address] [facility] [id number] [address] [place] [phone] Dec, Bipolar disorder, in partial remission, most recent episode hypomanic F31.71 ; Attention deficit hyperactivity disorder (ADHD), combined type F90.2 ; Anxiety disorder, unspecified type F41.9 and 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 (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) 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 Z79.899 [facility] [address] [id number] [address] [place] [phone] Dec, Bipolar disorder, in partial remission, most recent episode hypomanic F31.71 [facility] [address] [facility] [id number] [address] [place] [address] Dec, Bipolar disorder, in partial remission, most recent episode hypomanic F31.71 [facility] [address] [facility] [id number] [address] [place] [phone] October, Bipolar disorder, in partial remission, most recent episode hypomanic F31.71 [facility] [address] [id number] [address] [place] [phone] October, [facility] [address] [id number] [address] [place] [phone] October, [facility] [address] [id number] [address] [place] [phone] Oct, Bipolar disorder, in partial remission, most recent episode hypomanic F31.71 ; Attention deficit hyperactivity disorder (ADHD), combined type F90.2 ; Anxiety disorder, unspecified type F41.9 and Encounter for drug screening Z02.83 [facility] [address] [id number] [address] [place] [phone] Oct, Bipolar disorder, in partial remission, most recent episode hypomanic F31.71 [facility] [address] [facility] [id number] [address] [place] [id number] Oct, Bipolar disorder, in partial remission, most recent episode hypomanic F31.71 [facility] [address] [facility] [id number] [address] [place] [phone] Aug, Bipolar disorder, in partial remission, most recent episode hypomanic F31.71 [facility] [address] [facility] [id number] [address] [place] [id number] Aug, Bipolar disorder, in partial remission, most recent episode hypomanic F31.71 [facility] [address] [id number] [address] [place] [phone] Aug, Bipolar disorder, in partial remission, most recent episode hypomanic F31.71 [facility] [address] [facility] [id number] [address] [place] [id number] Jul, Bipolar disorder, in partial remission, most recent episode hypomanic F31.71 ; Attention deficit hyperactivity disorder (ADHD), combined type F90.2 and Anxiety disorder, unspecified type F41.9 [facility] [address] [facility] [id number] [address] [place] [phone] Jul, Bipolar disorder, in partial remission, most recent episode hypomanic F31.71 [facility] [address] [id number] [address] [place] [id number] Jun, Bipolar disorder, in partial remission, most recent episode hypomanic F31.71 [facility] [address] [id number] [address] [place] [phone] May, Bipolar disorder, in partial remission, most recent episode hypomanic F31.71 [facility] [address] [facility] [id number] [address] [place] [phone] May, Bipolar disorder, in partial remission, most recent episode hypomanic F31.71 [facility] [address] [facility] [id number] [address] [place] [phone] Apr, [facility] [address] [facility] [id number] [address] [place] [phone] Apr, Bipolar disorder, in partial remission, most recent episode hypomanic F31.71 ; Attention deficit hyperactivity disorder (ADHD), combined type F90.2 ; Anxiety disorder, unspecified type F41.9 and Cannabis abuse F12.10 [facility] [address] [facility] [id number] [address] [place] [id number] Apr, Attention deficit hyperactiv ity disorder (ADHD), combined type F90.2 [facility] [address] [facility] [id number] [address] [place] [phone] Mar, Attention deficit hyperactiv ity disorder (ADHD), combined type F90.2 [facility] [address] [facility] [id number] [address] [place] [phone] 14 Mar, 2017 Anxiety disorder, unspecifie d type F41.9 [facility] [address] [facility] [id number] [address] [place] [phone] Jan, Attention deficit hyperactiv ity disorder (ADHD), combined type F90.2 [facility] [address] [facility] [id number] [address] [place] [phone] Jan, Anxiety disorder, unspecifie d type F41.9 [facility] [address] [facility] [id number] [address] [place] [phone] Jan, Other chronic pain G89.29 ; Chronic hepatitis C without hepatic coma B18.2 and Bipolar 1 disorder F31.9 [facility] [address] [facility] [id number] [address] [place] [id number] Dec, Attention deficit hyperactiv ity disorder (ADHD), combined type F90.2 [facility] [address] [facility] [id number] [address] [place] [id number] Dec, Bipolar disorder, in partial remission, most recent episode hypomanic F31.71 ; Attention deficit hyperactivity disorder (ADHD), combined type F90.2 and Anxiety disorder, unspecified type F41.9 [place] [address] [place] [id number] [address] [place] [phone] Dec, Bipolar disorder, in partial remission, most recent episode hypomanic F31.71 ; Attention deficit hyperactivity disorder (ADHD), combined type F90.2 and Anxiety disorder, unspecified type F41.9 [facility] [address] [facility] [id number] [address] [place] [id number] Dec, Bipolar 1 disorder F31.9 and Attention deficit R41.840 [place] [id number] [place] [id number] [address] [place] [id number] Oct, Other chronic pain G89.29 ; Alopecia L65.9 and Screening, lipid Z13.220 [facility] [address] [facility] [id number] [address] [place] [id number] Oct, [facility] [address] [place] [id number] [address] [place] [phone] Aug, [facility] [address] [facility] [id number] [address] [place] [id number] Aug, Eustachian tube dysfunction, right H69.81 ; Vertigo R42 and Other chronic pain G89.29 [facility] [address] [id number] [address] [place] [phone] Aug, [facility] [address] [id number] [address] [place] [phone] Jun, [facility] [address] [id number] [address] [place] [phone] Jun, Low back pain M54.5 and Othe r chronic pain G89.29 [facility] [address] [id number] [address] [place] [phone] Jun, [facility] [address] [id number] [address] [place] [phone] May, [facility] [address] [id number] [address] [place] [phone] Jan, [facility] [address] [id number] [address] [place] [id number] Dec, [facility] [address] [id number] [address] [place] [phone] Dec, [facility] [address] [id number] [address] [place] [phone] Jun, [facility] [address] [id number] [address] [place] [address] Apr, Eustachian tube dysfunction, unspecified laterality H69.80 ; Hot flashes N95.1 and Encounter for immunization Z23 [facility] [address] [id number] [address] [place] [phone] Jan, [facility] [address] [id number] [address] [place] [address] Jan, [facility] [address] [id number] [address] [place] [phone] Jan, [facility] [address] [id number] [address] [place] [phone] Jan, [facility] [address] [id number] [address] [place] [phone] Jan, Encounter to establish care V65.8 ; Bipolar 1 disorder 296.7 ; Abdominal pain 789.00 ; Constipation 564.00 ; Hard of hearing 389.9 and Drug abuse 305.90 [facility] [address] [id number] [address] [place] [phone] Dec, [facility] [address] [id number] [address] [place] [phone] October, [facility] [address] [id number] [address] [place] [phone] October, [facility] [address] [id number] [address] [place] [phone] Oct, [facility] [address] [id number] [address] [place] [phone] Oct, [facility] [address] [facility] [id number] [address] [place] [phone] Oct, [facility] [address] [id number] [address] [place] [phone] Aug, [facility] [address] [id number] [address] [place] [phone] Aug, [facility] [address] [id number] [address] [place] [phone] Aug, [facility] [address] [id number] [address] [place] [phone] Aug, [facility] [address] [id number] [address] [place] [phone] Aug, [facility] [address] [id number] [address] [place] [phone] Aug, [facility] [address] [id number] [address] [place] [phone] Aug, [facility] [address] [id number] [address] [place] [address], [place] [address] Aug, 2014 [facility] [address] [id number] [address] [place] [address], [place] [address] Aug, 2014 [facility] [address] [id number] [address] [place] [address], [place] [address] Aug, 2014 [facility] [address] [id number] [address] [place] [address], [place] [address] Aug, 2014 [facility] [address] [id number] [address] [place] [address], [place] [address] Aug, 2014 [facility] [address] [id number] [address] [place] [address], [place] [address] Aug, 2014 [facility] [address] [id number] [address] [place] [address], [place] [address] Aug, 2014 [facility] [address] [id number] [address] [place] [address], [place] [address] Aug, [facility] [address] [id number] [address] [place] [address], [place] [address] Jul, [facility] [address] [id number] [address] [place] [address], [place] [address] Jul, [facility] [address] [id number] [address] [place] [address], [place] [address] Jul, [facility] [address] [id number] [address] [place] [address], [place] [address] Jul, [facility] [address] [id number] [address] [place] [address], [place] [address] Jul, [facility] [address] [id number] [address] [place] [address], [place] [address] Jul, [facility] [address] [id number] [address] [place] [address], [place] [address] Jul, [facility] [address] [id number] [address] [place] [address], [place] [address] Jul, [facility] [address] [id number] [address] [place] [address], [place] [address] Jun, [facility] [address] [id number] [address] [place] [address], [place] [id number] Jun, [facility] [address] [id number] [address] [place] [address], [place] [address] Jun, [facility] [address] [id number] [address] [place] [address], [place] [address] Jun, [facility] [address] [id number] [address] [place] [address], [place] [id number] Jun, [facility] [address] [id number] [address] [place] [address], [place] [address] Jun, [facility] [address] [id number] [address] [place] [address], [place] [address] Jun, [facility] [address] [id number] [address] [place] [address], [place] [address] Jun, [facility] [address] [id number] [address] [place] [address], [place] [address] Jun, [facility] [address] [id number] [address] [place] [address], [place] [address] Jun, [facility] [address] [id number] [address] [place] [address], [place] [address] Jun, [facility] [address] [id number] [address] [place] [address], [place] [address] May, [facility] [address] [id number] [address] [place] [address], [place] [address] May, [facility] [address] [id number] [address] [place] [address], [place] [address] May, [facility] [address] [id number] [address] [place] [address], [place] [address] May, [facility] [address] [id number] [address] [place] [address], [place] [id number] May, [facility] [address] [id number] [address] [place] [address], [place] [id number] May, [facility] [address] [id number] [address] [place] [address], [place] [id number] May, [facility] [address] [id number] [address] [place] [address], [place] [id number] Apr, [facility] [address] [id number] [address] [place] [address], [place] [id number] Apr, [facility] [address] [id number] [address] [place] [address], [place] [id number] Apr, [facility] [address] [id number] [address] [place] [address], [place] [id number] Apr, [facility] [address] [id number] [address] [place] [address], [place] [id number] Apr, [facility] [address] [id number] [address] [place] [address], [place] [id number] Apr, [facility] [address] [id number] [address] [place] [address], [place] [id number] Mar, [facility] [address] [id number] [address] [place] [address], [place] [id number] 29 Mar, 2014 [facility] [address] [id number] [address] [place] [address], [place] [id number] Mar, [facility] [address] [id number] [address] [place] [address], [place] [id number] Mar, [facility] [address] [id number] [address] [place] [address], [place] [id number] Mar, [facility] [address] [id number] [address] [place] [address], [place] [id number] Mar, [facility] [address] [id number] [address] [place] [address], [place] [id number] Jan, [facility] [address] [id number] [address] [place] [address], [place] [id number] Jan, [facility] [address] [id number] [address] [place] [address], [place] [id number] Jan, [facility] [address] [id number] [address] [place] [address], [place] [id number] Jan, [facility] [address] [id number] [address] [place] [address], [place] [id number] Dec, [facility] [address] [id number] [address] [place] [address], [place] [id number] Dec, [facility] [address] [id number] [address] [place] [address], [place] [id number] Dec, [facility] [address] [id number] [address] [place] [address], [place] [id number] Dec, [facility] [address] [id number] [address] [place] [address], [place] [address] Dec, [facility] [address] [id number] [address] [place] [address], [place] [address] Dec, [facility] [address] [id number] [address] [place] [address], [place] [address] Dec, [facility] [address] [id number] [address] [place] [address], [place] [address] Dec, [facility] [address] [id number] [address] [place] [address], [place] [address] Dec, [facility] [address] [id number] [address] [place] [address], [place] [address] Dec, [facility] [address] [id number] [address] [place] [address], [place] [address] Dec, [facility] [address] [id number] [address] [place] [address], [place] [address] Dec, [facility] [address] [id number] [address] [place] [address], [place] [address] October, [facility] [address] [id number] [address] [place] [address], [place] [address] October, [facility] [address] [id number] [address] [place] [address], [place] [address] October, [facility] [address] [id number] [address] [place] [address], [place] [address] October, [facility] [address] [id number] [address] [place] [address], [place] [address] October, [facility] [address] [id number] [address] [place] [address], [place] [address] October, [facility] [address] [id number] [address] [place] [address], [place] [address] Oct, [facility] [address] [id number] [address] [place] [address], [place] [address] Oct, [facility] [address] [id number] [address] [place] [address], [place] [address] Oct, [facility] [address] [id number] [address] [place] [address], [place] [address] Oct, [facility] [address] [id number] [address] [place] [address], [place] [address] Oct, [facility] [address] [id number] [address] [place] [address], [place] [address] Oct, [facility] [address] [id number] [address] [place] [address], [place] [address] Oct, [facility] [address] [id number] [address] [place] [address], [place] [address] Oct, [facility] [address] [id number] [address] [place] [address], [place] [address] Oct, [facility] [address] [id number] [address] [place] [address], [place] [address] Oct, [facility] [address] [id number] [facility] [place] [address] 08 Oct, 2013 [facility] [address] [id number] [address] [place] [address], [place] [address] Oct, [facility] [address] [id number] [address] [place] [address], [place] [address] 15 Aug, 2013 [facility] [address] [id number] [address] [place] [address], [place] [address] 15 Aug, 2013 [facility] [address] [id number] [address] [place] [address], [place] [address] Aug, [facility] [address] [id number] [address] [place] [address], [place] [address] Aug, [facility] [address] [id number] [address] [place] [address], [place] [address] Aug, [facility] [address] [id number] [address] [place] [address], [place] [address] Aug, [facility] [address] [id number] [address] [place] [address], [place] [address] 04 Aug, 2013 [facility] [address] [id number] [address] [place] [address], [place] [address] Aug, [facility] [address] [id number] [address] [place] [address], [place] [address] Aug, [facility] [address] [id number] [address] [place] [address], [place] [address] Aug, [facility] [address] [id number] [address] [place] [address], [place] [address] Aug, [facility] [address] [id number] [address] [place] [address], [place] [address] Aug, [facility] [address] [id number] [address] [place] [address], [place] [address] Aug, [facility] [address] [id number] [address] [place] [address], [place] [address] 20 Aug, 2013 [facility] [address] [id number] [address] [place] [address], [place] [address] 14 Aug, 2013 [facility] [address] [id number] [address] [place] [address], [place] [address] 14 Aug, 2013 [facility] [address] [id number] [address] [place] [address], [place] [address] 14 Aug, 2013 [facility] [address] [id number] [address] [place] [address], [place] [address] 14 Aug, 2013 [facility] [address] [id number] [address] [place] [address], [place] [address] 07 Aug, 2013 [facility] [address] [id number] [address] [place] [address], [place] [address] 07 Aug, 2013 [facility] [address] [id number] [address] [place] [address], [place] [address] 06 Aug, 2013 [facility] [address] [id number] [address] [place] [address], [place] [address] 06 Aug, 2013 [facility] [address] [id number] [address] [place] [address], [place] [address] 04 Aug, 2013 [facility] [address] [id number] [address] [place] [address], [place] [address] 04 Aug, 2013 [facility] [address] [id number] [address] [place] [address], [place] [address] Aug, [facility] [address] [id number] [address] [place] [address], [place] [address] Jul, [facility] [address] [id number] [address] [place] [address], [place] [address] Jul, [facility] [address] [id number] [address] [place] [address], [place] [address] Jul, [facility] [address] [id number] [address] [place] [address], [place] [address] Jul, [facility] [address] [id number] [address] [place] [address], [place] [address] Jul, [facility] [address] [id number] [address] [place] [address], [place] [address] Jul, [facility] [address] [id number] [address] [place] [address], [place] [address] Jul, [facility] [address] [id number] [address] [place] [address], [place] [address] Jul, [facility] [address] [id number] [address] [place] [address], [place] [address] Jul, [facility] [address] [id number] [address] [place] [address], [place] [address] Jul, [facility] [address] [id number] [address] [place] [address], [place] [address] Jul, [facility] [address] [id number] [address] [place] [address], [place] [address] Jul, [facility] [address] [id number] [address] [place] [address], [place] [address] Jul, [facility] [address] [id number] [address] [place] [address], [place] [address] Jul, [facility] [address] [id number] [address] [place] [address], [place] [address] Jul, [facility] [address] [id number] [address] [place] [address], [place] [address] Jul, [facility] [address] [id number] [address] [place] [address], [place] [address] Jul, [facility] [address] [id number] [address] [place] [address], [place] [address] Jul, [facility] [address] [id number] [address] [place] [address], [place] [address] Jul, [facility] [address] [id number] [address] [place] [address], [place] [address] Jul, [facility] [address] [id number] [address] [place] [address], [place] [address] Jun, [facility] [address] [id number] [address] [place] [address], [place] [address] Jun, [facility] [address] [id number] [address] [place] [address], [place] [address] Jun, [facility] [address] [id number] [address] [place] [address], [place] [address] Jun, [facility] [address] [id number] [address] [place] [address], [place] [address] Jun, [facility] [address] [id number] [address] [place] [address], [place] [address] Jun, [facility] [address] [id number] [address] [place] [address], [place] [address] Jun, [facility] [address] [id number] [address] [place] [address], [place] [address] Jun, [facility] [address] [id number] [address] [place] [address], [place] [address] Jun, [facility] [address] [id number] [address] [place] [address], [place] [address] Jun, [facility] [address] [id number] [address] [place] [address], [place] [address] Jun, [facility] [address] [id number] [address] [place] [address], [place] [address] Jun, [facility] [address] [id number] [address] [place] [address], [place] [address] Jun, [facility] [address] [id number] [address] [place] [address], [place] [address] Jun, [facility] [address] [id number] [address] [place] [address], [place] [address] Jun, [facility] [address] [id number] [address] [place] [address], [place] [address] 18 Jun, 2013 [facility] [address] [id number] [address] [place] [address], [place] [address] 18 Jun, 2013 [facility] [address] [id number] [address] [place] [address], [place] [address] 17 Jun, 2013 [facility] [address] [id number] [address] [place] [address], [place] [address] 17 Jun, 2013 [facility] [address] [id number] [address] [place] [address], [place] [address] 13 Jun, 2013 [facility] [address] [id number] [address] [place] [address], [place] [address] Jun, [facility] [address] [id number] [address] [place] [address], [place] [address] 12 Jun, 2013 [facility] [address] [id number] [address] [place] [address], [place] [address] Jun, [facility] [address] [id number] [address] [place] [address], [place] [address] 05 Jun, 2013 [facility] [address] [id number] [address] [place] [address], [place] [address] 05 Jun, 2013 [facility] [address] [id number] [address] [place] [address], [place] [address] Jun, [facility] [address] [id number] [address] [place] [address], [place] [address] Jun, [facility] [address] [id number] [address] [place] [address], [place] [address] May, [facility] [address] [id number] [address] [place] [address], [place] [address] May, [facility] [address] [id number] [address] [place] [address], [place] [address] May, [facility] [address] [id number] [address] [place] [address], [place] [address] May, [facility] [address] [id number] [address] [place] [address], [place] [address] May, [facility] [address] [id number] [address] [place] [address], [place] [address] May, [facility] [address] [id number] [address] [place] [address], [place] [address] Apr, [facility] [address] [id number] [address] [place] [address], [place] [address] Apr, [facility] [address] [id number] [address] [place] [address], [place] [address] Apr, [facility] [address] [id number] [address] [place] [address], [place] [address] Apr, [facility] [address] [id number] [address] [place] [address], [place] [address] Apr, [facility] [address] [id number] [address] [place] [address], [place] [address] Apr, [facility] [address] [id number] [address] [place] [address], [place] [address] Apr, [facility] [address] [id number] [address] [place] [address] Apr, [facility] [address] [id number] [address] [place] [address], [place] [address] 26 Mar, 2013 [facility] [address] [id number] [address] [place] [address] 24 Sep2012 [facility] [address] [id number] [address] [place] [address], [place] [address] 17 Sep2012 [facility] [address] [id number] [address] [place] [address], [place] [address] 17 Mar, 2012 [facility] [address] [id number] [address] [place] [address], [place] [address] 11 Mar, 2013 [facility] [address] [id number] [address] [place] [address], [place] [address] 10 Mar, 2013 [facility] [address] [id number] [address] [place] [address], [place] [address] 05 Mar, 2013 [facility] [address] [id number] [address] [place] [address], [place] [address] 04 Mar, 2013 [facility] [address] [id number] [address] [place] [address], [place] [address] Jan, [facility] [address] [id number] [address] [place] [address], [place] [address] Jan, [facility] [address] [id number] [address] [place] [address], [place] [address] 14 Jan, 2013 [facility] [address] [id number] [address] [place] [address], [place] [address] Jan, [facility] [address] [id number] [address] [place] [address], [place] [address] Jan, [facility] [address] [id number] [address] [place] [address], [place] [address] Jan, [facility] [address] [id number] [address] [place] [address], [place] [address] Dec, [facility] [address] [id number] [address] [place] [address], [place] [address] Dec, [facility] [address] [id number] [address] [place] [address], [place] [address] Dec, [facility] [address] [id number] [address] [place] [address], [place] [address] Dec, [facility] [address] [id number] [address] [place] [address], [place] [address] 18 Dec, 2012 [facility] [address] [id number] [address] [place] [address], [place] [address] 17 Dec, 2012 [facility] [address] [id number] [address] [place] [address], [place] [address] 16 Dec, 2012 [facility] [address] [id number] [address] [place] [address], [place] [address] 16 Dec, 2012 [facility] [address] [id number] [address] [place] [address], [place] [address] 15 Dec, 2012 [facility] [address] [id number] [address] [place] [address], [place] [address] 10 Dec, 2012 [facility] [address] [id number] [address] [place] [address], [place] [address] Dec, [facility] [address] [id number] [address] [place] [address], [place] [address] Dec, [facility] [address] [id number] [address] [place] [address], [place] [address] Dec, [facility] [address] [id number] [address] [place] [address], [place] [address] Dec, [facility] [address] [id number] [address] [place] [address], [place] [address] Dec, [facility] [address] [id number] [address] [place] [address], [place] [address] Dec, [facility] [address] [id number] [address] [place] [address], [place] [address] October, [facility] [address] [id number] [address] [place] [address], [place] [address] October, [facility] [address] [id number] [address] [place] [address], [place] [address] October, [facility] [address] [id number] [address] [place] [address], [place] [address] October, [facility] [address] [id number] [address] [place] [address], [place] [address] October, [facility] [address] [id number] [address] [place] [address], [place] [address] October, [facility] [address] [id number] [address] [place] [address], [place] [address] October, [facility] [address] [id number] [address] [place] [address], [place] [address] Oct, [facility] [address] [id number] [address] [place] [address], [place] [address] Oct, [facility] [address] [id number] [address] [place] [address], [place] [address] Oct, [facility] [address] [id number] [address] [place] [address], [place] [address] Oct, [facility] [address] [id number] [address] [place] [address], [place] [address] Oct, [facility] [address] [id number] [address] [place] [address], [place] [address] Oct, [facility] [address] [id number] [address] [place] [address], [place] [address] Oct, [facility] [address] [id number] [address] [place] [address], [place] [address] 15 Oct, 2012 [facility] [address] [id number] [address] [place] [address], [place] [address] Oct, [facility] [address] [id number] [address] [place] [address], [place] [address] Oct, [facility] [address] [id number] [address] [place] [address], [place] [address] Oct, [facility] [address] [id number] [address] [place] [address], [place] [id number] Oct, [facility] [address] [id number] [address] [place] [address], [place] [id number] Aug, [facility] [address] [id number] [address] [place] [address], [place] [id number] Aug, [facility] [address] [id number] [address] [place] [address], [place] [id number] Aug, [facility] [address] [id number] [address] [place] [address], [place] [id number] 06 Aug, 2012 [facility] [address] [id number] [address] [place] [address], [place] [id number] 05 Aug, 2012 [facility] [address] [id number] [address] [place] [address], [place] [id number] 05 Aug, 2012 [facility] [address] [id number] [address] [place] [address], [place] [id number] 20 Aug, 2012 [facility] [address] [id number] [address] [place] [address], [place] [id number] 14 Aug, 2012 [facility] [address] [id number] [address] [place] [address], [place] [id number] 12 Aug, 2012 [facility] [address] [id number] [address] [place] [address], [place] [id number] Aug, [facility] [address] [id number] [address] [place] [address], [place] [id number] 29 Jul, 2012 [facility] [address] [id number] [address] [place] [address], [place] [id number] 15 Jul, 2012 [facility] [address] [id number] [address] [place] [address], [place] [id number] 08 Jul, 2012 [facility] [address] [id number] [address] [place] [address], [place] [id number] Jun, [facility] [address] [id number] [address] [place] [address], [place] [id number] 18 Jun, 2012 [facility] [address] [id number] [address] [place] [address], [place] [id number] 18 Jun, 2012 [facility] [address] [id number] [address] [place] [address], [place] [id number] 18 Jun, 2012 [facility] [address] [id number] [address] [place] [address], [place] [id number] 18 Jun, 2012 [facility] [address] [id number] [address] [place] [address], [place] [id number] 14 Jun, 2012 [facility] [address] [id number] [address] [place] [address], [place] [id number] 14 Jun, 2012 [facility] [address] [id number] [address] [place] [address], [place] [id number] 13 Jun, 2012 [facility] [address] [id number] [address] [place] [address], [place] [id number] 13 Jun, 2012 [facility] [address] [id number] [address] [place] [address], [place] [id number] 11 Jun, 2012 [facility] [address] [id number] [address] [place] [address], [place] [id number] 11 Jun, 2012 [facility] [address] [id number] [address] [place] [address], [place] [id number] 11 Jun, 2012 [facility] [address] [id number] [address] [place] [address], [place] [id number] Jun, [facility] [address] [id number] [address] [place] [address], [place] [id number] 07 Jun, 2012 [facility] [address] [id number] [address] [place] [address], [place] [id number] 07 Jun, 2012 [facility] [address] [id number] [address] [place] [address], [place] [id number] 06 Jun, 2012 [facility] [address] [id number] [address] [place] [address], [place] [id number] 06 Jun, 2012 [facility] [address] [id number] [address] [place] [address], [place] [id number] Jun, [facility] [address] [id number] [address] [place] [address], [place] [id number] Jun, [facility] [address] [id number] [address] [place] [address], [place] [id number] 05 Jun, 2012 [facility] [address] [id number] [address] [place] [address], [place] [id number] 05 Jun, 2012 [facility] [address] [id number] [address] [place] [address], [place] [id number] Jun, [facility] [address] [id number] [address] [place] [address], [place] [id number] Jun, [facility] [address] [id number] [address] [place] [address], [place] [id number] May, [facility] [address] [id number] [address] [place] [address], [place] [id number] May, [facility] [address] [id number] [address] [place] [address], [place] [id number] May, [facility] [address] [id number] [address] [place] [address], [place] [id number] May, [facility] [address] [id number] [address] [place] [address], [place] [id number] May, [facility] [address] [id number] [address] [place] [address], [place] [id number] May, [facility] [address] [id number] [address] [place] [address], [place] [id number] May, [facility] [address] [id number] [address] [place] [address], [place] [id number] May, [facility] [address] [id number] [address] [place] [address], [place] [address] Apr, [facility] [address] [id number] [address] [place] [address], [place] [id number] 30 Apr, 2012 [facility] [address] [id number] [address] [place] [address], [place] [id number] 29 Apr, 2012 [facility] [address] [id number] [address] [place] [address], [place] [id number] Apr, [facility] [address] [id number] [address] [place] [address], [place] [address] Apr, [facility] [address] [id number] [address] [place] [id number] Apr, [facility] [address] [id number] [address] [place] [address], [place] [address] Apr, [facility] [address] [id number] [address] [place] [address], [place] [address] Apr, [facility] [address] [id number] [address] [place] [address], [place] [address] Apr, [facility] [address] [id number] [address] [place] [address], [place] [address] Apr, [facility] [address] [id number] [address] [place] [address], [place] [address] Apr, [facility] [address] [id number] [address] [place] [address], [place] [address] Apr, [facility] [address] [id number] [address] [place] [address], [place] [address] Mar, [facility] [address] [id number] [address] [place] [address], [place] [id number] 18 Mar, 2012 [facility] [address] [id number] [address] [place] [address], [place] [address] Mar, [facility] [address] [id number] [address] [place] [address], [place] [address] Mar, [facility] [address] [id number] [address] [place] [id number] Mar, [facility] [address] [id number] [address] [place] [id number] Mar, [facility] [address] [id number] [address] [place] [id number] Mar, [facility] [address] [id number] [address] [place] [address], [place] [address] Jan, [facility] [address] [id number] [address] [place] [id number] Jan, [facility] [address] [id number] [address] [place] [id number] Jan, [facility] [address] [id number] [address] [place] [address], [place] [id number] Jan, [facility] [address] [id number] [address] [place] [address], [place] [address] Jan, [facility] [address] [id number] [address] [place] [address], [place] [address] Jan, [facility] [address] [id number] [address] [place] [address], [place] [address] Jan, [facility] [address] [id number] [address] [place] [address], [place] [address] Jan, [facility] [address] [id number] [address] [place] [address], [place] [address] Jan, [facility] [address] [id number] [address] [place] [address], [place] [address] Jan, [facility] [address] [id number] [address] [place] [address], [place] [address] Jan, [facility] [address] [id number] [address] [place] [address], [place] [address] Dec, [facility] [address] [id number] [address] [place] [address], [place] [address] Dec, [facility] [address] [id number] [address] [place] [address], [place] [address] Dec, [facility] [address] [id number] [address] [place] [address], [place] [address] Dec, [facility] [address] [id number] [address] [place] [address], [place] [address] Dec, [facility] [address] [id number] [address] [place] [address], [place] [address] Dec, [facility] [address] [id number] [address] [place] [address], [place] [address] Dec, [facility] [address] [id number] [address] [place] [address], [place] [id number] 17 Jan, 2012 [facility] [address] [id number] [address] [place] [address], [place] [id number] 16 Jan, 2012 [facility] [address] [id number] [address] [place] [address], [place] [id number] 13 Jan, 2012 [facility] [address] [id number] [address] [place] [address], [place] [id number] 13 Jan, 2012 [facility] [address] [id number] [address] [place] [address], [place] [id number] 02 Jan, 2012 [facility] [address] [id number] [address] [place] [address], [place] [address] Dec, [facility] [address] [id number] [address] [place] [address], [place] [address] Dec, [facility] [address] [id number] [address] [place] [address], [place] [address] Dec, [facility] [address] [id number] [address] [place] [address], [place] [id number] 18 Dec, 2011 [facility] [address] [id number] [address] [place] [address], [place] [address] 15 Dec, 2011 [facility] [address] [id number] [address] [place] [address], [place] [id number] 06 Dec, 2011 [facility] [address] [id number] [address] [place] [address], [place] [address] 05 Dec, 2011 [facility] [address] [id number] [address] [place] [address], [place] [address] October, [facility] [address] [id number] [address] [place] [address], [place] [address] October, [facility] [address] [id number] [address] [place] [address], [place] [address] October, [facility] [address] [id number] [address] [place] [address], [place] [address] October, [facility] [address] [id number] [address] [place] [address], [place] [address] October, [facility] [address] [id number] [address] [place] [address], [place] [address] October, [facility] [address] [id number] [address] [place] [address], [place] [address] Oct, [facility] [address] [id number] [address] [place] [address], [place] [address] Oct, [facility] [address] [id number] [address] [place] [address], [place] [address] Oct, [facility] [address] [id number] [address] [place] [address], [place] [address] Oct, [facility] [address] [id number] [address] [place] [address], [place] [address] Oct, [facility] [address] [id number] [address] [place] [address], [place] [address] Oct, [facility] [address] [id number] [address] [place] [address], [place] [address] Oct, [facility] [address] [id number] [address] [place] [address], [place] [address] Aug, [facility] [address] [id number] [address] [place] [address], [place] [address] Aug, [facility] [address] [id number] [address] [place] [address], [place] [address] Aug, [facility] [address] [id number] [address] [place] [address], [place] [address] Aug, [facility] [address] [id number] [address] [place] [address], [place] [address] Aug, [facility] [address] [id number] [address] [place] [address], [place] [address] 05 Sep, 2011 [facility] [address] [id number] [address] [place] [address], [place] [address] Aug, [facility] [address] [id number] [address] [place] [address], [place] [address] Aug, [facility] [address] [id number] [address] [place] [address], [place] [id number] 08 Aug, 2011 [facility] [address] [id number] [address] [place] [address], [place] [address] Jul, [facility] [address] [id number] [address] [place] [address], [place] [address] Jul, [facility] [address] [id number] [address] [place] [address], [place] [address] Jul, [facility] [address] [id number] [address] [place] [address], [place] [address] Jul, [facility] [address] [id number] [address] [place] [address], [place] [address] Jun, [facility] [address] [id number] [address] [place] [address], [place] [address] Jun, [facility] [address] [id number] [address] [place] [address], [place] [address] May, [facility] [address] [id number] [address] [place] [address], [place] [address] May, [facility] [address] [id number] [address] [place] [address], [place] [address] May, [facility] [address] [id number] [address] [place] [address], [place] [address] May, [facility] [address] [id number] [address] [place] [address], [place] [address] May, [facility] [address] [id number] [address] [place] [address], [place] [address] Apr, [facility] [address] [id number] [address] [place] [address], [place] [address] Apr, [facility] [address] [id number] [address] [place] [id number] 10 Apr, 2011 [facility] [address] [id number] [address] [place] [id number] Jan, [facility] [address] [id number] [address] [place] [id number] Dec, [facility] [address] [id number] [address] [place] [id number] October, [facility] [address] [id number] [address] [place] [id number] Jun, [facility] [address] [id number] [address] [place] [id number] Apr, [facility] [address] [id number] [address] [place] [id number] Apr, [facility] [address] [id number] [address] [place] [id number] Apr, [facility] [address] [id number] [address] [place] [id number] Jun, IMMUNIZATIONS No Known Immunizations SOCIAL HISTORY Never Assessed REASON FOR VISIT PLAN OF CARE VITAL SIGNS Height 69 in 2013-06-24 Weight 166.16 lbs 2013-06-24 Temperature 98 degrees Fahrenheit 2013-06-24 Heart Rate 76 bpm 2013-06-24 Respiratory Rate 20 2013-06-24 Blood pressure systolic 130 mmHg 2013-06-24 Blood pressure diastolic 94 mmHg 2013-06-24 MEDICATIONS Unknown Medications RESULTS No Results PROCEDURES Procedure Date Ordered Result Body Site DRUG SCREEN, QUALITATE/MULTI Jun 24, 2013 INSTRUCTIONS MEDICATIONS ADMINISTERED No Known Medications MEDICAL (GENERAL) HISTORY Type Description Date Medical History Psychiatric disorder Medical History Hard of hearing Surgical History Neofibrous tumor Surgical History back injection Surgical History SCS inserted 02/22/16 Hospitalization History Intestinal blockage Hospitalization History past psychiatric hospitalizations x2 Hospitalization History [facility]
--- OUTSIDE RECORDS SUMMARY | 2020-01-25 13:19 | XMS REPORT ---
Author Author Moreno Ana Doctor Organization [facility] Address Unknown Phone Unavailable Care Team Providers Care Junior Legal Secretary Name Role Phone Migration, Doctor Unavailable Unavailable PROBLEMS Type Condition ICD9-CM Code NVF46-FB Code Onset Dates Condition S tatus SNOMED Code Problem Chronic hepatitis C without hepatic coma B18.2 Active 485461528 Problem Cannabis abuse F12.10 Active 61479 009 Problem Bipolar 1 disorder F31.9 Active 3 72601929 Problem Attention deficit hyperactivity disorder (ADHD), combi luciano type F90.2 Active 07432075 Problem Attention deficit R41.840 Active 76 059360 Problem Hot flashes due to menopause N95.1 A ctive 666456801 Problem H/O laminectomy Z98.89 Active 1616 91210 Problem Other chronic pain G89.29 Active 8 6481256 Problem Anxiety disorder, unspecified type F41.9 Active 102195700 Problem Bipolar disorder, in partial remission, most rec ent episode hypomanic F31.71 Active 803479926 ALLERGIES No Information ENCOUNTERS Encounter Location Date Diagnosis [facility] [address] [id number] [address] [place] [address] [id number] Oct, [facility] [address] [facility] [id number] [address] [place] [phone] Oct, [facility] [address] [facility] [id number] [address] [place] [phone] Aug, [facility] [address] [facility] [id number] [address] [place] [address] Jul, [facility] [address] [facility] [id number] [address] [place] [phone] Jul, [facility] [address] [facility] [id number] [address] [place] [phone] Apr, [facility] [address] [facility] [id number] [address] [place] [address] Mar, Hot flashes due to menopause N95.1 ; Anxiety disorder, unspecified type F41.9 ; Low back pain M54.5 and Encounter for immunization Z23 [facility] [address] [facility] [id number] [address] [place] [phone] Dec, Other chronic pain G89.29 an d Low back pain M54.5 [facility] [address] [facility] [id number] [address] [place] [phone] October, [facility] [address] [facility] [id number] [address] [place] [phone] October, [facility] [address] [facility] [id number] [address] [place] [address] October, [facility] [address] [facility] [id number] [address] [place] [address] October, Other chronic pain G89.29 an d Chronic hepatitis C without hepatic coma B18.2 [facility] [address] [facility] [id number] [address] [place] [address] Aug, Bipolar disorder, in partial remission, most recent episode hypomanic F31.71 ; Attention deficit hyperactivity disorder (ADHD), combined type F90.2 and Anxiety disorder, unspecified type F41.9 [facility] [address] [facility] [id number] [address] [place] [phone] Aug, [facility] [address] [facility] [id number] [address] [place] [phone] Aug, Bipolar disorder, in partial remission, most recent episode hypomanic F31.71 [facility] [address] [facility] [id number] [address] [place] [phone] Aug, [facility] [address] [facility] [id number] [address] [place] [id number] Aug, Bipolar disorder, in partial remission, most recent episode hypomanic F31.71 [facility] [address] [facility] [id number] [address] [place] [phone] Aug, Bipolar disorder, in partial remission, most recent episode hypomanic F31.71 ; Attention deficit hyperactivity disorder (ADHD), combined type F90.2 and Anxiety disorder, unspecified type F41.9 [facility] [address] [id number] [address] [place] [address] Aug, Low back pain M54.5 and Pain in left wrist M25.532 [facility] [address] [id number] [address] [place] [phone] Aug, [facility] [address] [id number] [address] [place] [phone] Jun, [facility] [address] [id number] [address] [place] [phone] Apr, Bipolar disorder, in partial remission, most recent episode hypomanic F31.71 [facility] [address] [id number] [address] [place] [address] Apr, [facility] [address] [id number] [address] [place] [phone] Apr, Bipolar disorder, in partial remission, most recent episode hypomanic F31.71 ; Attention deficit hyperactivity disorder (ADHD), combined type F90.2 ; Anxiety disorder, unspecified type F41.9 and Other 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 continuous churn (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) 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 therapy Z79.899 [facility] [address] [id number] [address] [place] [phone] Apr, Bipolar disorder, in partial remission, most recent episode hypomanic F31.71 [facility] [address] [id number] [address] [place] [address] Apr, Bipolar disorder, in partial remission, most recent episode hypomanic F31.71 [facility] [address] [id number] [address] [place] [address] Mar, [facility] [address] [id number] [address] [place] [address] Mar, Bipolar disorder, in partial remission, most recent episode hypomanic F31.71 ; Encounter for immunization Z23 and Low back pain M54.5 [facility] [address] [id number] [address] [place] [address] Mar, Bipolar disorder, in partial remission, most recent episode hypomanic F31.71 [facility] [address] [id number] [address] [place] [address] Mar, Bipolar disorder, in partial remission, most recent episode hypomanic F31.71 [facility] [address] [id number] [address] [place] [phone] Jan, Bipolar disorder, in partial remission, most recent episode hypomanic F31.71 [facility] [address] [id number] [address] [place] [address] Jan, Bipolar disorder, in partial remission, most recent episode hypomanic F31.71 [facility] [address] [facility] [id number] [address] [place] [address] Dec, Bipolar disorder, in partial remission, most recent episode hypomanic F31.71 [facility] [address] [id number] [address] [place] [address] Dec, Bipolar disorder, in partial remission, most recent episode hypomanic F31.71 ; Attention deficit hyperactivity disorder (ADHD), combined type F90.2 ; Anxiety disorder, unspecified type F41.9 and Other senior care (current) drug therapy Z79.899 [facility] [address] [id number] [address] [place] [phone] Dec, Bipolar disorder, in partial remission, most recent episode hypomanic F31.71 [facility] [address] [id number] [address] [place] [address] Dec, Bipolar disorder, in partial remission, most recent episode hypomanic F31.71 [facility] [address] [id number] [address] [place] [phone] October, Bipolar disorder, in partial remission, most recent episode hypomanic F31.71 [facility] [address] [id number] [address] [place] [phone] October, [facility] [address] [id number] [address] [place] [phone] October, [facility] [address] [id number] [address] [place] [address] Oct, Bipolar disorder, in partial remission, most recent episode hypomanic F31.71 ; Attention deficit hyperactivity disorder (ADHD), combined type F90.2 ; Anxiety disorder, unspecified type F41.9 and Encounter for drug screening Z02.83 [facility] [address] [id number] [address] [place] [phone] Oct, Bipolar disorder, in partial remission, most recent episode hypomanic F31.71 [facility] [address] [facility] [id number] [address] [place] [phone] Oct, Bipolar disorder, in partial remission, most recent episode hypomanic F31.71 [facility] [address] [facility] [id number] [address] [place] [phone] Aug, Bipolar disorder, in partial remission, most recent episode hypomanic F31.71 [facility] [address] [facility] [id number] [address] [place] [phone] Aug, Bipolar disorder, in partial remission, most recent episode hypomanic F31.71 [facility] [address] [facility] [id number] [address] [place] [phone] Aug, Bipolar disorder, in partial remission, most recent episode hypomanic F31.71 [facility] [address] [id number] [address] [place] [address] Jul, Bipolar disorder, in partial remission, most recent episode hypomanic F31.71 ; Attention deficit hyperactivity disorder (ADHD), combined type F90.2 and Anxiety disorder, unspecified type F41.9 [facility] [address] [id number] [address] [place] [address] Jul, Bipolar disorder, in partial remission, most recent episode hypomanic F31.71 [facility] [address] [id number] [address] [place] [phone] Jun, Bipolar disorder, in partial remission, most recent episode hypomanic F31.71 [facility] [address] [id number] [address] [place] [phone] May, Bipolar disorder, in partial remission, most recent episode hypomanic F31.71 [facility] [address] [id number] [address] [place] [phone] May, Bipolar disorder, in partial remission, most recent episode hypomanic F31.71 [facility] [address] [id number] [address] [place] [address] Apr, [facility] [address] [facility] [id number] [address] [place] [phone] Apr, Bipolar disorder, in partial remission, most recent episode hypomanic F31.71 ; Attention deficit hyperactivity disorder (ADHD), combined type F90.2 ; Anxiety disorder, unspecified type F41.9 and Cannabis abuse F12.10 [facility] [address] [id number] [address] [place] [phone] Apr, Attention deficit hyperactiv ity disorder (ADHD), combined type F90.2 [facility] [address] [facility] [id number] [address] [place] [phone] Mar, Attention deficit hyperactiv ity disorder (ADHD), combined type F90.2 [facility] [address] [facility] [id number] [address] [place] [phone] 14 Mar, 2017 Anxiety disorder, unspecifie d type F41.9 [facility] [address] [facility] [id number] [address] [place] [phone] 18 Jan, 2017 Attention deficit hyperactiv ity disorder (ADHD), combined type F90.2 [facility] [address] [facility] [id number] [address] [place] [phone] 16 Jan, 2017 Anxiety disorder, unspecifie d type F41.9 [place] [address] [facility] [id number] [address] [place] [address] Jan, Other chronic pain G89.29 ; Chronic hepatitis C without hepatic coma B18.2 and Bipolar 1 disorder F31.9 [facility] [address] [facility] [id number] [address] [place] [address] Dec, Attention deficit hyperactiv ity disorder (ADHD), combined type F90.2 [facility] [address] [facility] [id number] [address] [place] [phone] Dec, Bipolar disorder, in partial remission, most recent episode hypomanic F31.71 ; Attention deficit hyperactivity disorder (ADHD), combined type F90.2 and Anxiety disorder, unspecified type F41.9 [place] [address] [facility] [id number] [address] [place] [address] Dec, Bipolar disorder, in partial remission, most recent episode hypomanic F31.71 ; Attention deficit hyperactivity disorder (ADHD), combined type F90.2 and Anxiety disorder, unspecified type F41.9 [facility] [address] [place] [id number] [address] [place] [address] Dec, Bipolar 1 disorder F31.9 and Attention deficit R41.840 [place] [address] [place] [id number] [address] [place] [address] Oct, Other chronic pain G89.29 ; Alopecia L65.9 and Screening, lipid Z13.220 [place] [address] [facility] [id number] [address] [place] [address] Oct, [place] [address] [place] [id number] [address] [place] [address] Aug, [place] [address] [place] [id number] [address] [place] [phone] Aug, Eustachian tube dysfunction, right H69.81 ; Vertigo R42 and Other chronic pain G89.29 [place] [address] [place] [id number] [address] [place] [phone] Aug, [facility] [address] [id number] [address] [place] [address] Jun, [facility] [address] [id number] [address] [place] [address] Jun, Low back pain M54.5 and Othe r chronic pain G89.29 [facility] [address] [id number] [address] [place] [phone] Jun, [facility] [address] [id number] [address] [place] [phone] May, [facility] [address] [id number] [address] [place] [phone] Jan, [facility] [address] [id number] [address] [place] [phone] Dec, [facility] [address] [id number] [address] [place] [address] Dec, [facility] [address] [id number] [address] [place] [address] Jun, [facility] [address] [id number] [address] [place] [address] Apr, Eustachian tube dysfunction, unspecified laterality H69.80 ; Hot flashes N95.1 and Encounter for immunization Z23 [facility] [address] [id number] [address] [place] [address] Jan, [facility] [address] [id number] [address] [place] [phone] Jan, [facility] [address] [id number] [address] [place] [address] Jan, [facility] [address] [facility] [id number] [address] [place] [address] Jan, [facility] [address] [id number] [address] [place] [address] Jan, Encounter to establish care V65.8 ; Bipolar 1 disorder 296.7 ; Abdominal pain 789.00 ; Constipation 564.00 ; Hard of hearing 389.9 and Drug abuse 305.90 [facility] [address] [id number] [address] [place] [address] Dec, [facility] [address] [facility] [id number] [address] [place] [address] October, [facility] [address] [id number] [address] [place] [phone] October, [facility] [address] [id number] [address] [place] [address] Oct, [facility] [address] [id number] [address] [place] [address] Oct, [facility] [address] [facility] [id number] [address] [place] [address] Oct, [facility] [address] [id number] [address] [place] [phone] Aug, [facility] [address] [id number] [address] [place] [phone] Aug, [facility] [address] [facility] [id number] [address] [place] [phone] Aug, [facility] [address] [id number] [address] [place] [address] Aug, [facility] [address] [id number] [address] [place] [phone] Aug, [facility] [address] [id number] [address] [place] [phone] Aug, [facility] [address] [id number] [address] [place] [address] Aug, [facility] [address] [id number] [address] [place] [phone] Aug, [facility] [address] [id number] [address] [place] [address], [place] [address] Aug, 2014 [facility] [address] [id number] [address] [place] [address], [place] [address] Aug, 2014 [facility] [address] [id number] [address] [place] [address], [place] [address] Aug, 2014 [facility] [address] [id number] [address] [place] [address], [place] [address] Aug, 2014 [facility] [address] [id number] [address] [place] [address], [place] [address] Aug, 2014 [facility] [address] [id number] [address] [place] [address], [place] [address] Aug, 2014 [facility] [address] [id number] [address] [place] [address], [place] [address] Aug, [facility] [address] [id number] [address] [place] [address], [place] [address] Jul, [facility] [address] [id number] [address] [place] [address], [place] [address] Jul, [facility] [address] [id number] [address] [place] [address], [place] [address] Jul, [facility] [address] [id number] [address] [place] [address], [place] [address] Jul, [facility] [address] [id number] [address] [place] [address], [place] [address] Jul, [facility] [address] [id number] [address] [place] [address], [place] [address] Jul, [facility] [address] [id number] [address] [place] [address], [place] [address] Jul, [facility] [address] [id number] [address] [place] [address], [place] [address] Jul, [facility] [address] [id number] [address] [place] [address], [place] [address] Jun, [facility] [address] [id number] [address] [place] [address], [place] [address] Jun, [facility] [address] [id number] [address] [place] [address], [place] [address] Jun, [facility] [address] [id number] [address] [place] [address], [place] [address] Jun, [facility] [address] [id number] [address] [place] [address], [place] [address] Jun, [facility] [address] [id number] [address] [place] [address], [place] [address] Jun, [facility] [address] [id number] [address] [place] [address], [place] [address] Jun, [facility] [address] [id number] [address] [place] [address], [place] [id number] Jun, [facility] [address] [id number] [address] [place] [address], [place] [id number] Jun, [facility] [address] [id number] [address] [place] [address], [place] [address] Jun, [facility] [address] [id number] [address] [place] [address], [place] [id number] Jun, [facility] [address] [id number] [address] [place] [address], [place] [id number] May, [facility] [address] [id number] [address] [place] [address], [place] [id number] May, [facility] [address] [id number] [address] [place] [address], [place] [address] May, [facility] [address] [id number] [address] [place] [address], [place] [id number] May, [facility] [address] [id number] [address] [place] [address], [place] [address] May, [facility] [address] [id number] [address] [place] [address], [place] [address] May, [facility] [address] [id number] [address] [place] [address], [place] [id number] May, [facility] [address] [id number] [address] [place] [address], [place] [id number] Apr, [facility] [address] [id number] [address] [place] [address], [place] [id number] Apr, [facility] [address] [id number] [address] [place] [address], [place] [id number] Apr, [facility] [address] [id number] [address] [place] [address], [place] [id number] Apr, [facility] [address] [id number] [address] [place] [address], [place] [id number] Apr, [facility] [address] [id number] [address] [place] [address], [place] [address] Apr, [facility] [address] [id number] [address] [place] [address], [place] [address] Mar, [facility] [address] [id number] [address] [place] [address], [place] [id number] Mar, [facility] [address] [id number] [address] [place] [address], [place] [id number] Mar, [facility] [address] [id number] [address] [place] [address], [place] [id number] Mar, [facility] [address] [id number] [address] [place] [address], [place] [address] Mar, [facility] [address] [id number] [address] [place] [address], [place] [id number] Mar, [facility] [address] [id number] [address] [place] [address], [place] [id number] Jan, [facility] [address] [id number] [address] [place] [address], [place] [id number] Jan, [facility] [address] [id number] [address] [place] [address], [place] [address] Jan, [facility] [facility] [address] [id number] [address] [place] [address], [place] [address] Jan, [facility] [address] [id number] [address] [place] [address], [place] [address] Dec, [facility] [address] [id number] [address] [place] [address], [place] [address] Dec, [facility] [address] [id number] [address] [place] [address], [place] [address] Dec, [facility] [address] [id number] [address] [place] [address], [place] [address] Dec, [facility] [address] [id number] [address] [place] [address], [place] [address] Dec, [facility] [address] [id number] [address] [place] [address], [place] [address] Dec, [facility] [address] [id number] [address] [place] [address], [place] [address] Dec, [facility] [address] [id number] [address] [place] [address], [place] [address] Dec, [facility] [address] [id number] [address] [place] [address], [place] [address] Dec, [facility] [address] [id number] [address] [place] [address], [place] [address] Dec, [facility] [address] [id number] [address] [place] [address], [place] [address] Dec, [facility] [address] [id number] [address] [place] [address], [place] [address] Dec, [facility] [address] [id number] [address] [place] [address], [place] [address] October, [facility] [address] [id number] [address] [place] [address], [place] [address] October, [facility] [address] [id number] [address] [place] [address], [place] [address] October, [facility] [address] [id number] [address] [place] [address], [place] [address] October, [facility] [address] [id number] [address] [place] [address], [place] [address] October, [facility] [address] [id number] [address] [place] [address], [place] [address] October, [facility] [address] [id number] [address] [place] [address], [place] [address] Oct, [facility] [address] [id number] [address] [place] [address], [place] [address] Oct, [facility] [address] [id number] [address] [place] [address], [place] [address] Oct, [facility] [address] [id number] [address] [place] [address], [place] [address] Oct, [facility] [address] [id number] [address] [place] [address], [place] [address] Oct, [facility] [address] [id number] [address] [place] [address], [place] [address] Oct, [facility] [address] [id number] [address] [place] [address], [place] [address] Oct, [facility] [address] [id number] [address] [place] [address], [place] [address] Oct, [facility] [address] [id number] [address] [place] [address], [place] [address] Oct, [facility] [address] [id number] [address] [place] [address], [place] [address] Oct, [facility] [address] [id number] [address] [place] [address], [place] [address] Oct, [facility] [address] [id number] [facility] [place] [address] 08 Oct, 2013 [facility] [address] [id number] [facility] [place] [address] 15 Aug, 2013 [facility] [address] [id number] [facility] [place] [address] 15 Aug, 2013 [facility] [address] [id number] [address] [place] [address], [place] [address] Aug, [facility] [address] [id number] [address] [place] [address], [place] [address] Aug, [facility] [address] [id number] [address] [place] [address], [place] [address] Aug, [facility] [address] [id number] [address] [place] [address], [place] [address] Aug, [facility] [address] [id number] [address] [place] [address], [place] [address] Aug, [facility] [address] [id number] [address] [place] [address], [place] [address] Aug, [facility] [address] [id number] [address] [place] [address], [place] [address] Aug, [facility] [address] [id number] [address] [place] [address], [place] [address] Aug, [facility] [address] [id number] [address] [place] [address], [place] [address] Aug, [facility] [address] [id number] [address] [place] [address], [place] [address] Aug, [facility] [address] [id number] [address] [place] [address], [place] [address] Aug, [facility] [address] [id number] [address] [place] [address], [place] [address] Aug, [facility] [address] [id number] [address] [place] [address], [place] [address] 14 Aug, 2013 [facility] [address] [id number] [address] [place] [address], [place] [address] 14 Aug, 2013 [facility] [address] [id number] [address] [place] [address], [place] [address] 14 Aug, 2013 [facility] [address] [id number] [address] [place] [address], [place] [address] 14 Aug, 2013 [facility] [address] [id number] [address] [place] [address], [place] [id number] 07 Aug, 2013 [facility] [address] [id number] [address] [place] [address], [place] [address] 07 Aug, 2013 [facility] [address] [id number] [address] [place] [address], [place] [address] 06 Aug, 2013 [facility] [address] [id number] [address] [place] [address], [place] [address] 06 Aug, 2013 [facility] [address] [id number] [address] [place] [address], [place] [address] 04 Aug, 2013 [facility] [address] [id number] [address] [place] [address], [place] [address] 04 Aug, 2013 [facility] [address] [id number] [address] [place] [address], [place] [address] Aug, [facility] [address] [id number] [address] [place] [address], [place] [address] Jul, [facility] [address] [id number] [address] [place] [address], [place] [address] Jul, [facility] [address] [id number] [address] [place] [address], [place] [address] Jul, [facility] [address] [id number] [address] [place] [address], [place] [address] Jul, [facility] [address] [id number] [address] [place] [address], [place] [address] Jul, [facility] [address] [id number] [address] [place] [address], [place] [address] Jul, [facility] [address] [id number] [address] [place] [address], [place] [address] Jul, [facility] [address] [id number] [address] [place] [address], [place] [address] Jul, [facility] [address] [id number] [address] [place] [address], [place] [address] Jul, [facility] [address] [id number] [address] [place] [address], [place] [address] Jul, [facility] [address] [id number] [address] [place] [address], [place] [address] Jul, [facility] [address] [id number] [address] [place] [address], [place] [address] Jul, [facility] [address] [id number] [address] [place] [address], [place] [address] Jul, [facility] [address] [id number] [address] [place] [address], [place] [address] Jul, [facility] [address] [id number] [address] [place] [address], [place] [address] Jul, [facility] [address] [id number] [address] [place] [address], [place] [address] Jul, [facility] [address] [id number] [address] [place] [address], [place] [address] Jul, [facility] [address] [id number] [address] [place] [address], [place] [address] Jul, [facility] [address] [id number] [address] [place] [address], [place] [address] Jul, [facility] [address] [id number] [address] [place] [address], [place] [address] Jul, [facility] [address] [id number] [address] [place] [address], [place] [address] 31 Jun, 2013 [facility] [address] [id number] [address] [place] [address], [place] [address] 31 Jun, 2013 [facility] [address] [id number] [address] [place] [address], [place] [address] Jun, [facility] [address] [id number] [address] [place] [address], [place] [address] Jun, [facility] [address] [id number] [address] [place] [address], [place] [address] Jun, [facility] [address] [id number] [address] [place] [address], [place] [address] Jun, [facility] [address] [id number] [address] [place] [address], [place] [address] Jun, [facility] [address] [id number] [address] [place] [address], [place] [address] Jun, [facility] [address] [id number] [address] [place] [address], [place] [address] Jun, [facility] [address] [id number] [address] [place] [address], [place] [address] Jun, [facility] [address] [id number] [address] [place] [address], [place] [address] Jun, [facility] [address] [id number] [address] [place] [address], [place] [address] Jun, [facility] [address] [id number] [address] [place] [address], [place] [address] Jun, [facility] [address] [id number] [address] [place] [address], [place] [address] Jun, [facility] [address] [id number] [address] [place] [address], [place] [address] Jun, [facility] [address] [id number] [address] [place] [address], [place] [address] 18 Jun, 2013 [facility] [address] [id number] [address] [place] [address], [place] [address] 18 Jun, 2013 [facility] [address] [id number] [address] [place] [address], [place] [address] 17 Jun, 2013 [facility] [address] [id number] [address] [place] [address], [place] [address] 17 Jun, 2013 [facility] [address] [id number] [address] [place] [address], [place] [address] 13 Jun, 2013 [facility] [address] [id number] [address] [place] [address], [place] [address] 12 Jun, 2013 [facility] [address] [id number] [address] [place] [address], [place] [address] 12 Jun, 2013 [facility] [address] [id number] [address] [place] [address], [place] [address] 09 Jun, 2013 [facility] [address] [id number] [address] [place] [address], [place] [address] 05 Jun, 2013 [facility] [address] [id number] [address] [place] [address], [place] [address] 05 Jun, 2013 [facility] [address] [id number] [address] [place] [address], [place] [address] 04 Jun, 2013 [facility] [address] [id number] [address] [place] [address], [place] [address] 04 Jun, 2013 [facility] [address] [id number] [address] [place] [address], [place] [address] May, [facility] [address] [id number] [address] [place] [address], [place] [address] 17 May, 2013 [facility] [address] [id number] [address] [place] [address], [place] [address] May, [facility] [address] [id number] [address] [place] [address], [place] [address] May, [facility] [address] [id number] [address] [place] [address] [address] May, [facility] [address] [id number] [address] [place] [address], [place] [address] May, [facility] [address] [id number] [address] [place] [address], [place] [address] Apr, [facility] [address] [id number] [address] [place] [address], [place] [address] Apr, [facility] [address] [id number] [address] [place] [address], [place] [address] Apr, [facility] [address] [id number] [address] [place] [address], [place] [address] Apr, [facility] [address] [id number] [address] [place] [address], [place] [address] Apr, [facility] [address] [id number] [address] [place] [address], [place] [address] Apr, [facility] [address] [id number] [address] [place] [address], [place] [address] 15 Apr, 2013 [facility] [address] [id number] [address] [place] [address], [place] [address] Apr, [facility] [address] [id number] [address] [place] [id number] 26 Mar, 2013 [facility] [address] [id number] [address] [place] [address] 24 Sep, 2012 [facility] [address] [id number] [address] [place] [id number] 17 Sep, 2012 [facility] [address] [id number] [address] [place] [address], [place] [address] 17 Sep, 2012 [facility] [address] [id number] [address] [place] [id number] 11 Sep, 2012 [facility] [address] [id number] [address] [place] [address], [place] [address] 10 Mar, 2012 [facility] [address] [id number] [address] [place] [address], [place] [address] 05 Mar, 2013 [facility] [address] [id number] [address] [place] [address], [place] [address] 04 Mar, 2013 [facility] [address] [id number] [address] [place] [address], [place] [address] Jan, [facility] [address] [id number] [address] [place] [address], [place] [address] Jan, [facility] [address] [id number] [address] [place] [address], [place] [address] Jan, [facility] [address] [id number] [address] [place] [address], [place] [address] Jan, [facility] [address] [id number] [address] [place] [address], [place] [address] Jan, [facility] [address] [id number] [address] [place] [address], [place] [address] Jan, [facility] [address] [id number] [address] [place] [address], [place] [address] Dec, [facility] [address] [id number] [address] [place] [address], [place] [address] 24 Dec, 2012 [facility] [address] [id number] [address] [place] [address], [place] [address] Dec, [facility] [address] [id number] [address] [place] [address], [place] [address] Dec, [facility] [address] [id number] [address] [place] [address], [place] [address] 18 Dec, 2012 [facility] [address] [id number] [address] [place] [address], [place] [address] 17 Dec, 2012 [facility] [address] [id number] [address] [place] [address], [place] [address] 16 Dec, 2012 [facility] [address] [id number] [address] [place] [address], [place] [address] 16 Dec, 2012 [facility] [address] [id number] [address] [place] [address], [place] [address] 15 Dec, 2012 [facility] [address] [id number] [address] [place] [address], [place] [address] Dec, [facility] [address] [id number] [address] [place] [address], [place] [address] Dec, [facility] [address] [id number] [address] [place] [address], [place] [address] Dec, [facility] [address] [id number] [address] [place] [address], [place] [address] Dec, [facility] [address] [id number] [address] [place] [address], [place] [address] Dec, [facility] [address] [id number] [address] [place] [address], [place] [address] Dec, [facility] [address] [id number] [address] [place] [address], [place] [address] Dec, [facility] [address] [id number] [address] [place] [address], [place] [address] October, [facility] [address] [id number] [address] [place] [address], [place] [address] October, [facility] [address] [id number] [address] [place] [address], [place] [address] October, [facility] [address] [id number] [address] [place] [address], [place] [address] October, [facility] [address] [id number] [address] [place] [address], [place] [address] October, [facility] [address] [id number] [address] [place] [address], [place] [address] October, [facility] [address] [id number] [address] [place] [address], [place] [id number] October, [facility] [address] [id number] [address] [place] [address], [place] [id number] 29 Oct, 2012 [facility] [address] [id number] [address] [place] [address], [place] [id number] Oct, [facility] [address] [id number] [address] [place] [address], [place] [id number] 24 Oct, 2012 [facility] [address] [id number] [address] [place] [address], [place] [address] Oct, [facility] [address] [id number] [address] [place] [address], [place] [address] Oct, [facility] [address] [id number] [address] [place] [address], [place] [address] 18 Oct, 2012 [facility] [address] [id number] [address] [place] [address], [place] [address] 17 Oct, 2012 [facility] [address] [id number] [address] [place] [address], [place] [id number] 15 Oct, 2012 [facility] [address] [id number] [address] [place] [address], [place] [address] Oct, [facility] [address] [id number] [address] [place] [address], [place] [address] Oct, [facility] [address] [id number] [address] [place] [address], [place] [address] Oct, [facility] [address] [id number] [address] [place] [address], [place] [address] Oct, [facility] [address] [id number] [address] [place] [address], [place] [address] Aug, [facility] [address] [id number] [address] [place] [address], [place] [address] Aug, [facility] [address] [id number] [address] [place] [address], [place] [address] Aug, [facility] [address] [id number] [address] [place] [address], [place] [address] Aug, [facility] [address] [id number] [address] [place] [address], [place] [address] 05 Aug, 2012 [facility] [address] [id number] [address] [place] [address], [place] [id number] 05 Aug, 2012 [facility] [address] [id number] [address] [place] [address], [place] [address] 20 Aug, 2012 [facility] [address] [id number] [address] [place] [address], [place] [address] 14 Aug, 2012 [facility] [address] [id number] [address] [place] [address], [place] [address] 12 Aug, 2012 [facility] [address] [id number] [address] [place] [address], [place] [id number] 11 Aug, 2012 [facility] [address] [id number] [address] [place] [address], [place] [address] 29 Jul, 2012 [facility] [address] [id number] [address] [place] [address], [place] [address] 15 Jul, 2012 [facility] [address] [id number] [address] [place] [address], [place] [id number] 08 Jul, 2012 [facility] [address] [id number] [address] [place] [address], [place] [address] 20 Jun, 2012 [facility] [address] [id number] [address] [place] [address], [place] [address] 18 Jun, 2012 [facility] [address] [id number] [address] [place] [address], [place] [address] 18 Jun, 2012 [facility] [address] [id number] [address] [place] [address], [place] [address] 18 Jun, 2012 [facility] [address] [id number] [address] [place] [address], [place] [address] 18 Jun, 2012 [facility] [address] [id number] [address] [place] [address], [place] [address] 14 Jun, 2012 [facility] [address] [id number] [address] [place] [address] [address] 14 Jun, 2012 [facility] [address] [id number] [address] [place] [address], [place] [id number] 13 Jun, 2012 [facility] [address] [id number] [address] [place] [address], [place] [address] 13 Jun, 2012 [facility] [address] [id number] [address] [place] [address], [place] [id number] 11 Jun, 2012 [facility] [address] [id number] [address] [place] [address], [place] [address] 11 Jun, 2012 [facility] [address] [id number] [place] [address], [place] [address] Jun, [facility] [address] [id number] [address] [place] [address], [place] [id number] Jun, [facility] [address] [id number] [address] [place] [address], [place] [id number] 07 Jun, 2012 [facility] [address] [id number] [address] [place] [address], [place] [address] 07 Jun, 2012 [facility] [address] [id number] [address] [place] [address], [place] [address] Jun, [facility] [address] [id number] [address] [place] [address], [place] [id number] 06 Jun, 2012 [facility] [address] [id number] [address] [place] [address], [place] [address] Jun, [facility] [address] [id number] [address] [place] [address], [place] [address] Jun, [facility] [address] [id number] [address] [place] [address], [place] [address] Jun, [facility] [address] [id number] [address] [place] [address], [place] [id number] 05 Jun, 2012 [facility] [address] [id number] [address] [place] [address], [place] [address] Jun, [facility] [address] [id number] [address] [place] [address], [place] [address] Jun, [facility] [address] [id number] [address] [place] [address], [place] [address] May, [facility] [address] [id number] [address] [place] [address], [place] [address] May, [facility] [address] [id number] [address] [place] [address], [place] [address] May, [facility] [address] [id number] [address] [place] [address], [place] [address] May, [facility] [address] [id number] [address] [place] [address], [place] [address] May, [facility] [address] [id number] [address] [place] [address], [place] [address] May, [facility] [address] [id number] [address] [place] [address], [place] [address] May, [facility] [address] [id number] [address] [place] [address], [place] [address] May, [facility] [address] [id number] [address] [place] [address], [place] [address] Apr, [facility] [address] [id number] [address] [place] [address], [place] [address] Apr, [facility] [address] [id number] [address] [place] [address], [place] [address] 29 Apr, 2012 [facility] [address] [id number] [address] [place] [address] Apr, [facility] [address] [id number] [address] [place] [address], [place] [address] Apr, [facility] [address] [id number] [address] [place] [address], [place] [address] Apr, [facility] [address] [id number] [address] [place] [id number] Apr, [facility] [address] [id number] [address] [place] [address], [place] [address] Apr, [facility] [address] [id number] [address] [place] [address], [place] [address] Apr, [facility] [address] [id number] [address] [place] [address], [place] [address] Apr, [facility] [address] [id number] [address] [place] [address], [place] [address] Apr, [facility] [address] [id number] [address] [place] [address], [place] [address] Apr, [facility] [address] [id number] [address] [place] [address], [place] [address] Mar, [facility] [address] [id number] [address] [place] [address], [place] [id number] 18 Mar, 2012 [facility] [address] [id number] [address] [place] [id number] Mar, [facility] [address] [id number] [address] [place] [address], [place] [address] Mar, [facility] [address] [id number] [address] [place] [id number] Mar, [facility] [address] [id number] [address] [place] [id number] Mar, [facility] [address] [id number] [address] [place] [id number] Mar, [facility] [address] [id number] [address] [place] [id number] Jan, [facility] [address] [id number] [address] [place] [id number] Jan, [facility] [address] [id number] [address] [place] [id number] Jan, [facility] [address] [id number] [address] [place] [id number] Jan, [facility] [address] [id number] [address] [place] [address], [place] [address] Jan, [facility] [address] [id number] [address] [place] [address], [place] [address] Jan, [facility] [address] [id number] [address] [place] [address], [place] [address] Jan, [facility] [address] [id number] [address] [place] [address], [place] [address] Jan, [facility] [address] [id number] [address] [place] [address], [place] [address] Jan, [facility] [address] [id number] [address] [place] [address], [place] [address] Jan, [facility] [address] [id number] [address] [place] [address], [place] [address] Jan, [facility] [address] [id number] [address] [place] [address], [place] [address] Dec, [facility] [address] [id number] [address] [place] [address], [place] [address] Dec, [facility] [address] [id number] [address] [place] [address], [place] [address] Dec, [facility] [address] [id number] [address] [place] [address], [place] [address] Dec, [facility] [address] [id number] [address] [place] [address], [place] [id number] Dec, [facility] [address] [id number] [address] [place] [address], [place] [address] Dec, [facility] [address] [id number] [address] [place] [address], [place] [id number] Dec, [facility] [address] [id number] [address] [place] [address], [place] [address] Dec, [facility] [address] [id number] [address] [place] [address], [place] [id number] 16 Jan, 2012 [facility] [address] [id number] [address] [place] [address], [place] [id number] 13 Jan, 2012 [facility] [address] [id number] [address] [place] [address], [place] [id number] 13 Jan, 2012 [facility] [address] [id number] [address] [place] [address], [place] [address] Dec, [facility] [address] [id number] [address] [place] [address], [place] [id number] Dec, [facility] [address] [id number] [address] [place] [address], [place] [address] Dec, [facility] [address] [id number] [address] [place] [address], [place] [address] Dec, [facility] [address] [id number] [address] [place] [address], [place] [address] Dec, [facility] [address] [id number] [address] [place] [address], [place] [address] Dec, [facility] [address] [id number] [address] [place] [address], [place] [address] Dec, [facility] [address] [id number] [address] [place] [address], [place] [address] Dec, [facility] [address] [id number] [address] [place] [address], [place] [address] October, [facility] [address] [id number] [address] [place] [address], [place] [address] October, [facility] [address] [id number] [address] [place] [address], [place] [address] October, [facility] [address] [id number] [address] [place] [address], [place] [address] October, [facility] [address] [id number] [address] [place] [address], [place] [id number] October, [facility] [address] [id number] [address] [place] [address], [place] [address] October, [facility] [address] [id number] [address] [place] [address], [place] [address] Oct, [facility] [address] [id number] [address] [place] [address], [place] [address] Oct, [facility] [address] [id number] [address] [place] [address], [place] [address] Oct, [facility] [address] [id number] [address] [place] [address], [place] [address] Oct, [facility] [address] [id number] [address] [place] [address], [place] [address] Oct, [facility] [address] [id number] [address] [place] [address], [place] [address] Oct, [facility] [address] [id number] [address] [place] [address], [place] [address] Oct, [facility] [address] [id number] [address] [place] [address], [place] [address] Aug, [facility] [address] [id number] [address] [place] [address], [place] [address] Aug, [facility] [address] [id number] [address] [place] [address], [place] [address] Aug, [facility] [address] [id number] [address] [place] [address], [place] [address] Aug, [facility] [address] [id number] [address] [place] [address], [place] [address] Aug, [facility] [address] [id number] [address] [place] [address], [place] [address] Aug, [facility] [address] [id number] [address] [place] [address], [place] [address] Aug, [facility] [address] [id number] [address] [place] [address], [place] [address] Aug, [facility] [address] [id number] [address] [place] [address], [place] [address] Aug, [facility] [address] [id number] [address] [place] [address], [place] [address] Jul, [facility] [address] [id number] [address] [place] [address], [place] [address] Jul, [facility] [address] [id number] [address] [place] [address], [place] [address] Jul, [facility] [address] [id number] [address] [place] [address], [place] [address] Jul, [facility] [address] [id number] [address] [place] [address], [place] [address] Jun, [facility] [address] [id number] [address] [place] [address], [place] [address] Jun, [facility] [address] [id number] [address] [place] [address], [place] [address] May, [facility] [address] [id number] [address] [place] [address], [place] [address] May, [facility] [address] [id number] [address] [place] [address], [place] [address] May, [facility] [address] [id number] [address] [place] [address], [place] [address] May, [facility] [address] [id number] [address] [place] [address], [place] [address] May, [facility] [address] [id number] [address] [place] [address], [place] [address] 28 Apr, 2011 [facility] [address] [id number] [address] [place] [address], [place] [address] 28 Apr, 2011 [facility] [address] [id number] [address] [place] [address], [place] [address] 10 Apr, 2011 [facility] [address] [id number] [address] [place] [id number] Jan, [facility] [address] [id number] [address] [place] [id number] Dec, [facility] [address] [id number] [address] [place] [id number] October, [facility] [address] [facility] [id number] [address] [place] [id number] Jun, [facility] [address] [id number] [address] [place] [id number] Apr, [facility] [address] [facility] [id number] [address] [place] [id number] Apr, [facility] [address] [facility] [id number] [address] [place] [id number] Apr, [facility] [address] [facility] [id number] [address] [place] [id number] Jun, IMMUNIZATIONS No Known Immunizations SOCIAL HISTORY [...]
--- OUTSIDE RECORDS SUMMARY | 2020-01-25 13:19 | XMS REPORT ---
Author Author Ana MCDONALD [facility] Address [address] [place] [address] Care Team Providers Care Internal Audit Consultant Name Role Phone CHAZ MCDONALD Unavailable PROBLEMS Type Condition ICD9-CM Code [id number] Code Onset Dates Condition S tatus SNOMED Code Problem Chronic hepatitis C without hepatic coma B18.2 Active 009569678 Problem Cannabis abuse F12.10 Active 76602 009 Problem Bipolar 1 disorder F31.9 Active 3 [id number] Problem Attention deficit hyperactivity disorder (ADHD), combi luciano type F90.2 Active 58536142 Problem Attention deficit R41.840 Active 76 850368 Problem Hot flashes due to menopause N95.1 A ctive 459077100 Problem H/O laminectomy Z98.89 Active 1616 21528 Problem Other chronic pain G89.29 Active 8 5293066 Problem Anxiety disorder, unspecified type F41.9 Active 758414205 Problem Bipolar disorder, in partial remission, most rec ent episode hypomanic F31.71 Active [id number] ALLERGIES No Information ENCOUNTERS Encounter Location Date Diagnosis [facility] [address] [id number] [address] [place] [id number] Oct, [facility] [address] [facility] [id number] [address] [place] [address] Oct, [facility] [address] [facility] [id number] [address] [place] [address] Aug, [facility] [address] [facility] [id number] [address] [place] [address] Jul, [facility] [address] [facility] [id number] [address] [place] [address] Jul, [facility] [address] [facility] [id number] [address] [place] [address] Apr, [facility] [address] [id number] [address] [place] [address] Mar, Hot flashes due to menopause N95.1 ; Anxiety disorder, unspecified type F41.9 ; Low back pain M54.5 and Encounter for immunization Z23 [facility] [address] [id number] [address] [place] [address] Dec, Other chronic pain G89.29 an d Low back pain M54.5 [facility] [address] [id number] [address] [place] [address] October, [facility] [address] [id number] [address] [place] [address] October, [facility] [address] [id number] [address] [place] [address] October, [facility] [address] [facility] [id number] [address] [place] [address] October, Other chronic pain G89.29 an d Chronic hepatitis C without hepatic coma B18.2 [facility] [address] [id number] [address] [place] [address] Aug, Bipolar disorder, in partial remission, most recent episode hypomanic F31.71 ; Attention deficit hyperactivity disorder (ADHD), combined type F90.2 and Anxiety disorder, unspecified type F41.9 [facility] [address] [id number] [address] [place] [address] Aug, [facility] [address] [id number] [address] [place] [address] Aug, Bipolar disorder, in partial remission, most recent episode hypomanic F31.71 [facility] [address] [id number] [address] [place] [address] Aug, [facility] [address] [facility] [id number] [address] [place] [address] Aug, Bipolar disorder, in partial remission, most recent episode hypomanic F31.71 [facility] [address] [id number] [address] [place] [address] Aug, Bipolar disorder, in partial remission, most recent episode hypomanic F31.71 ; Attention deficit hyperactivity disorder (ADHD), combined type F90.2 and Anxiety disorder, unspecified type F41.9 [facility] [address] [id number] [address] [place] [address] Aug, Low back pain M54.5 and Pain in left wrist M25.532 [facility] [address] [id number] [address] [place] [address] Aug, [facility] [address] [id number] [address] [place] [address] Jun, [facility] [address] [id number] [address] [place] [address] Apr, Bipolar disorder, in partial remission, most recent episode hypomanic F31.71 [facility] [address] [id number] [address] [place] [address] Apr, [facility] [address] [id number] [address] [place] [address] Apr, Bipolar disorder, in partial remission, most recent episode hypomanic F31.71 ; Attention deficit hyperactivity disorder (ADHD), combined type F90.2 ; Anxiety disorder, unspecified type F41.9 and Other alf (current) drug therapy Z79.899 [facility] [address] [id number] [address] [place] [address] Apr, Bipolar disorder, in partial remission, most recent episode hypomanic F31.71 [facility] [address] [id number] [address] [place] [address] Apr, Bipolar disorder, in partial remission, most recent episode hypomanic F31.71 [facility] [address] [id number] [address] [place] [address] Mar, [facility] [address] [id number] [address] [place] [address] Mar, Bipolar disorder, in partial remission, most recent episode hypomanic F31.71 ; Encounter for immunization Z23 and Low back pain M54.5 [facility] [address] [facility] [id number] [address] [place] [address] Mar, Bipolar disorder, in partial remission, most recent episode hypomanic F31.71 [facility] [address] [facility] [id number] [address] [place] [address] Mar, Bipolar disorder, in partial remission, most recent episode hypomanic F31.71 [facility] [address] [facility] [id number] [address] [place] [address] Jan, Bipolar disorder, in partial remission, most recent episode hypomanic F31.71 [facility] [address] [facility] [id number] [address] [place] [address] Jan, Bipolar disorder, in partial remission, most recent episode hypomanic F31.71 [facility] [address] [facility] [id number] [address] [place] [address] Dec, Bipolar disorder, in partial remission, most recent episode hypomanic F31.71 [facility] [address] [facility] [id number] [address] [place] [address] Dec, Bipolar disorder, in partial remission, most recent episode hypomanic F31.71 ; Attention deficit hyperactivity disorder (ADHD), combined type F90.2 ; Anxiety disorder, unspecified type F41.9 and Other alf (current) drug therapy Z79.899 [facility] [address] [facility] [id number] [address] [place] [address] Dec, Bipolar disorder, in partial remission, most recent episode hypomanic F31.71 [facility] [address] [facility] [id number] [address] [place] [address] Dec, Bipolar disorder, in partial remission, most recent episode hypomanic F31.71 [facility] [address] [facility] [id number] [address] [place] [address] October, Bipolar disorder, in partial remission, most recent episode hypomanic F31.71 [facility] [address] [id number] [address] [place] [address] October, [facility] [address] [id number] [address] [place] [address] October, [facility] [address] [id number] [address] [place] [address] Oct, Bipolar disorder, in partial remission, most recent episode hypomanic F31.71 ; Attention deficit hyperactivity disorder (ADHD), combined type F90.2 ; Anxiety disorder, unspecified type F41.9 and Encounter for drug screening Z02.83 [facility] [address] [id number] [address] [place] [address] Oct, Bipolar disorder, in partial remission, most recent episode hypomanic F31.71 [facility] [address] [facility] [id number] [address] [place] [address] Oct, Bipolar disorder, in partial remission, most recent episode hypomanic F31.71 [facility] [address] [id number] [address] [place] [address] Aug, Bipolar disorder, in partial remission, most recent episode hypomanic F31.71 [facility] [address] [facility] [id number] [address] [place] [address] Aug, Bipolar disorder, in partial remission, most recent episode hypomanic F31.71 [facility] [address] [facility] [id number] [address] [place] [address] Aug, Bipolar disorder, in partial remission, most recent episode hypomanic F31.71 [facility] [address] [facility] [id number] [address] [place] [address] Jul, Bipolar disorder, in partial remission, most recent episode hypomanic F31.71 ; Attention deficit hyperactivity disorder (ADHD), combined type F90.2 and Anxiety disorder, unspecified type F41.9 [facility] [address] [id number] [address] [place] [address] Jul, Bipolar disorder, in partial remission, most recent episode hypomanic F31.71 [facility] [address] [facility] [id number] [address] [place] [address] Jun, Bipolar disorder, in partial remission, most recent episode hypomanic F31.71 [facility] [address] [id number] [address] [place] [address] May, Bipolar disorder, in partial remission, most recent episode hypomanic F31.71 [facility] [address] [id number] [address] [place] [address] May, Bipolar disorder, in partial remission, most recent episode hypomanic F31.71 [facility] [address] [facility] [id number] [address] [place] [address] Apr, [facility] [address] [facility] [id number] [address] [place] [address] Apr, Bipolar disorder, in partial remission, most recent episode hypomanic F31.71 ; Attention deficit hyperactivity disorder (ADHD), combined type F90.2 ; Anxiety disorder, unspecified type F41.9 and Cannabis abuse F12.10 [facility] [address] [facility] [id number] [address] [place] [address] Apr, Attention deficit hyperactiv ity disorder (ADHD), combined type F90.2 [facility] [address] [facility] [id number] [address] [place] [address] Mar, Attention deficit hyperactiv ity disorder (ADHD), combined type F90.2 [facility] [address] [id number] [address] [place] [id number] 14 Mar, 2017 Anxiety disorder, unspecifie d type F41.9 [facility] [address] [facility] [id number] [address] [place] [id number] Jan, Attention deficit hyperactiv ity disorder (ADHD), combined type F90.2 [facility] [address] [facility] [id number] [address] [place] [id number] Jan, Anxiety disorder, unspecifie d type F41.9 [facility] [address] [facility] [id number] [address] [place] [address] Jan, Other chronic pain G89.29 ; Chronic hepatitis C without hepatic coma B18.2 and Bipolar 1 disorder F31.9 [facility] [address] [id number] [address] [place] [address] Dec, Attention deficit hyperactiv ity disorder (ADHD), combined type F90.2 [facility] [address] [id number] [address] [place] [address] Dec, Bipolar disorder, in partial remission, most recent episode hypomanic F31.71 ; Attention deficit hyperactivity disorder (ADHD), combined type F90.2 and Anxiety disorder, unspecified type F41.9 [facility] [address] [facility] [id number] [address] [place] [address] Dec, Bipolar disorder, in partial remission, most recent episode hypomanic F31.71 ; Attention deficit hyperactivity disorder (ADHD), combined type F90.2 and Anxiety disorder, unspecified type F41.9 [facility] [address] [facility] [id number] [address] [place] [address] Dec, Bipolar 1 disorder F31.9 and Attention deficit R41.840 [facility] [address] [facility] [id number] [address] [place] [address] Oct, Other chronic pain G89.29 ; Alopecia L65.9 and Screening, lipid Z13.220 [facility] [address] [facility] [id number] [address] [place] [address] Oct, [facility] [address] [facility] [id number] [address] [place] [address] Aug, [facility] [address] [facility] [id number] [address] [place] [address] Aug, Eustachian tube dysfunction, right H69.81 ; Vertigo R42 and Other chronic pain G89.29 [facility] [address] [id number] [address] [place] [address] Aug, [facility] [address] [id number] [address] [place] [address] Jun, [facility] [address] [id number] [address] [place] [address] Jun, Low back pain M54.5 and Othe r chronic pain G89.29 [facility] [address] [id number] [address] [place] [address] Jun, [facility] [address] [id number] [address] [place] [address] May, [facility] [address] [id number] [address] [place] [address] Jan, [facility] [address] [id number] [address] [place] [address] Dec, [facility] [address] [id number] [address] [place] [address] Dec, [facility] [address] [id number] [address] [place] [address] Jun, [facility] [address] [facility] [id number] [address] [place] [address] Apr, Eustachian tube dysfunction, unspecified laterality H69.80 ; Hot flashes N95.1 and Encounter for immunization Z23 [facility] [address] [id number] [address] [place] [address] Jan, [facility] [address] [id number] [address] [place] [address] Jan, [facility] [address] [id number] [address] [place] [address] Jan, [facility] [address] [id number] [address] [place] [address] Jan, [facility] [address] [id number] [address] [place] [address] Jan, Encounter to establish care V65.8 ; Bipolar 1 disorder 296.7 ; Abdominal pain 789.00 ; Constipation 564.00 ; Hard of hearing 389.9 and Drug abuse 305.90 [facility] [address] [id number] [address] [place] [address] Dec, [facility] [address] [id number] [address] [place] [address] October, [facility] [address] [id number] [address] [place] [address] October, [facility] [address] [id number] [address] [place] [address] Oct, [facility] [address] [id number] [address] [place] [address] Oct, [facility] [address] [id number] [address] [place] [address] Oct, [facility] [address] [id number] [address] [place] [address] Aug, [facility] [address] [id number] [address] [place] [address] Aug, [facility] [address] [id number] [address] [place] [address] Aug, [facility] [address] [id number] [address] [place] [address] Aug, [facility] [address] [id number] [address] [place] [id number] Aug, [facility] [address] [id number] [address] [place] [address] Aug, [facility] [address] [id number] [address] [place] [address] Aug, [facility] [address] [id number] [address] [place] [address], [place] [address] Aug, 2014 [facility] [address] [id number] [address] [place] [address], [place] [address] Aug, 2014 [facility] [address] [id number] [address] [place] [address], [place] [address] Aug, 2014 [facility] [address] [id number] [address] [place] [address], [place] [address] Aug, 2014 [facility] [address] [id number] [address] [place] [address], [place] [address] Aug, 2014 [facility] [address] [id number] [address] [place] [address], [place] [address] Aug, 2014 [facility] [address] [id number] [address] [place] [address], [place] [address] Aug, 2014 [facility] [address] [id number] [address] [place] [address], [place] [address] Aug, [facility] [address] [id number] [address] [place] [address], [place] [address] Jul, [facility] [address] [id number] [address] [place] [address], [place] [address] Jul, [facility] [address] [id number] [address] [place] [address], [place] [address] Jul, [facility] [address] [id number] [address] [place] [address], [place] [address] Jul, [facility] [address] [id number] [address] [place] [address], [place] [address] Jul, [facility] [address] [id number] [address] [place] [address], [place] [address] Jul, [facility] [address] [id number] [address] [place] [address], [place] [address] Jul, [facility] [address] [id number] [address] [place] [address], [place] [address] Jul, [facility] [address] [id number] [address] [place] [address], [place] [address] Jun, [facility] [address] [id number] [address] [place] [address], [place] [address] Jun, [facility] [address] [id number] [address] [place] [address], [place] [address] Jun, [facility] [address] [id number] [address] [place] [address], [place] [address] Jun, [facility] [address] [id number] [address] [place] [address], [place] [address] Jun, [facility] [address] [id number] [address] [place] [address], [place] [address] Jun, [facility] [address] [id number] [address] [place] [address], [place] [address] Jun, [facility] [address] [id number] [address] [place] [address], [place] [address] Jun, [facility] [address] [id number] [address] [place] [address], [place] [address] Jun, [facility] [address] [id number] [address] [place] [address], [place] [address] Jun, [facility] [address] [id number] [address] [place] [address], [place] [address] Jun, [facility] [address] [id number] [address] [place] [address], [place] [address] May, [facility] [address] [id number] [address] [place] [address], [place] [address] May, [facility] [address] [id number] [address] [place] [address], [place] [address] May, [facility] [address] [id number] [address] [place] [address], [place] [address] May, [facility] [address] [id number] [address] [place] [address], [place] [address] May, [facility] [address] [id number] [address] [place] [address], [place] [address] May, [facility] [address] [id number] [address] [place] [address], [place] [address] May, [facility] [address] [id number] [address] [place] [address], [place] [address] Apr, [facility] [address] [id number] [address] [place] [address], [place] [address] Apr, [facility] [address] [id number] [address] [place] [address], [place] [address] Apr, [facility] [address] [id number] [address] [place] [address], [place] [address] Apr, [facility] [address] [id number] [address] [place] [address], [place] [address] Apr, [facility] [address] [id number] [address] [place] [address], [place] [address] Apr, [facility] [address] [id number] [address] [place] [address], [place] [address] 29 Mar, 2014 [facility] [address] [id number] [address] [place] [address], [place] [address] 29 Mar, 2014 [facility] [address] [id number] [address] [place] [address], [place] [address] Mar, [facility] [address] [id number] [address] [place] [address], [place] [address] Mar, [facility] [address] [id number] [address] [place] [address], [place] [address] Mar, [facility] [address] [id number] [address] [place] [address], [place] [address] Mar, [facility] [address] [id number] [address] [place] [address], [place] [address] Jan, [facility] [address] [id number] [facility] [place] [address] Jan, [facility] [address] [id number] [facility] [place] [address] Jan, [facility] [address] [id number] [address] [place] [address], [place] [id number] Jan, [facility] [address] [id number] [address] [place] [address], [place] [address] Dec, [facility] [address] [id number] [address] [place] [address], [place] [address] Dec, [facility] [address] [id number] [address] [place] [address], [place] [id number] Dec, [facility] [address] [id number] [address] [place] [address], [place] [address] Dec, [facility] [address] [id number] [address] [place] [address], [place] [address] Dec, [facility] [address] [id number] [address] [place] [address], [place] [address] Dec, [facility] [address] [id number] [address] [place] [address], [place] [address] Dec, [facility] [address] [id number] [address] [place] [address], [place] [id number] Dec, [facility] [address] [id number] [address] [place] [address], [place] [address] Dec, [facility] [address] [id number] [address] [place] [address], [place] [address] Dec, [facility] [address] [id number] [address] [place] [address], [place] [address] Dec, [facility] [address] [id number] [address] [place] [address], [place] [address] Dec, [facility] [address] [id number] [address] [place] [address], [place] [address] October, [facility] [address] [id number] [address] [place] [address], [place] [address] October, [facility] [address] [id number] [address] [place] [address], [place] [address] October, [facility] [address] [id number] [address] [place] [address], [place] [address] October, [facility] [address] [id number] [address] [place] [address], [place] [address] October, [facility] [address] [id number] [address] [place] [address], [place] [address] October, [facility] [address] [id number] [address] [place] [address], [place] [address] Oct, [facility] [address] [id number] [address] [place] [address], [place] [address] Oct, [facility] [address] [id number] [address] [place] [address], [place] [address] Oct, [facility] [address] [id number] [address] [place] [address], [place] [address] Oct, [facility] [address] [id number] [address] [place] [address], [place] [address] Oct, [facility] [address] [id number] [address] [place] [address], [place] [address] Oct, [facility] [address] [id number] [address] [place] [address], [place] [address] Oct, [facility] [address] [id number] [address] [place] [address], [place] [address] Oct, [facility] [address] [id number] [address] [place] [address], [place] [address] Oct, [facility] [address] [id number] [address] [place] [address], [place] [address] Oct, [facility] [address] [id number] [facility] [place] [address] 08 Oct, 2013 [facility] [address] [id number] [address] [place] [address], [place] [address] 08 Oct, 2013 [facility] [address] [id number] [address] [place] [address], [place] [address] 15 Aug, 2013 [facility] [address] [id number] [address] [place] [address], [place] [address] 15 Aug, 2013 [facility] [address] [id number] [address] [place] [address], [place] [address] Aug, [facility] [address] [id number] [address] [place] [address], [place] [address] Aug, [facility] [address] [id number] [address] [place] [address], [place] [address] 05 Aug, 2013 [facility] [address] [id number] [address] [place] [address], [place] [address] 05 Aug, 2013 [facility] [address] [id number] [address] [place] [address], [place] [phone] 04 Aug, 2013 [facility] [address] [id number] [address] [place] [address], [place] [address] Aug, [facility] [address] [id number] [address] [place] [address], [place] [address] Aug, [facility] [address] [id number] [address] [place] [address], [place] [address] Aug, [facility] [address] [id number] [address] [place] [address], [place] [address] Aug, [facility] [address] [id number] [address] [place] [address], [place] [address] Aug, [facility] [address] [id number] [address] [place] [address], [place] [address] Aug, [facility] [address] [id number] [address] [place] [address], [place] [address] 20 Aug, 2013 [facility] [address] [id number] [address] [place] [address], [place] [address] 14 Aug, 2013 [facility] [address] [id number] [address] [place] [address], [place] [address] 14 Aug, 2013 [facility] [address] [id number] [address] [place] [address], [place] [address] 14 Aug, 2013 [facility] [address] [id number] [address] [place] [address], [place] [address] 14 Aug, 2013 [facility] [address] [id number] [address] [place] [address], [place] [address] 07 Aug, 2013 [facility] [address] [id number] [address] [place] [address], [place] [address] 07 Aug, 2013 [facility] [address] [id number] [address] [place] [address], [place] [address] 06 Aug, 2013 [facility] [address] [id number] [address] [place] [address], [place] [phone] 06 Aug, 2013 [facility] [address] [id number] [address] [place] [address], [place] [address] 04 Aug, 2013 [facility] [address] [id number] [address] [place] [address], [place] [address] 04 Aug, 2013 [facility] [address] [id number] [address] [place] [address], [place] [address] Aug, [facility] [address] [id number] [address] [place] [address], [place] [address] Jul, [facility] [address] [id number] [address] [place] [address], [place] [address] Jul, [facility] [address] [id number] [address] [place] [address], [place] [address] Jul, [facility] [address] [id number] [address] [place] [address], [place] [address] Jul, [facility] [address] [id number] [address] [place] [address], [place] [address] Jul, [facility] [address] [id number] [address] [place] [address], [place] [address] Jul, [facility] [address] [id number] [address] [place] [address], [place] [address] Jul, [facility] [address] [id number] [address] [place] [address], [place] [address] Jul, [facility] [address] [id number] [address] [place] [address], [place] [address] Jul, [facility] [address] [id number] [address] [place] [address], [place] [address] Jul, [facility] [address] [id number] [address] [place] [address], [place] [address] Jul, [facility] [address] [id number] [address] [place] [address], [place] [address] Jul, [facility] [address] [id number] [address] [place] [address], [place] [address] Jul, [facility] [address] [id number] [address] [place] [address], [place] [address] Jul, [facility] [address] [id number] [address] [place] [address], [place] [address] Jul, [facility] [address] [id number] [address] [place] [address], [place] [address] Jul, [facility] [address] [id number] [address] [place] [address], [place] [address] Jul, [facility] [address] [id number] [address] [place] [address], [place] [address] Jul, [facility] [address] [id number] [address] [place] [address], [place] [address] Jul, [facility] [address] [id number] [address] [place] [address], [place] [address] Jul, [facility] [address] [id number] [address] [place] [address], [place] [address] Jun, [facility] [address] [id number] [address] [place] [address], [place] [address] Jun, [facility] [address] [id number] [address] [place] [address], [place] [address] Jun, [facility] [address] [id number] [address] [place] [address], [place] [address] Jun, [facility] [address] [id number] [address] [place] [address], [place] [address] Jun, [facility] [address] [id number] [address] [place] [address], [place] [address] Jun, [facility] [address] [id number] [address] [place] [address], [place] [address] Jun, [facility] [address] [id number] [address] [place] [address], [place] [address] Jun, [facility] [address] [id number] [address] [place] [address], [place] [address] Jun, [facility] [address] [id number] [address] [place] [address], [place] [address] Jun, [facility] [address] [id number] [address] [place] [address], [place] [address] Jun, [facility] [address] [id number] [address] [place] [address], [place] [address] Jun, [facility] [address] [id number] [address] [place] [address], [place] [address] Jun, [facility] [address] [id number] [address] [place] [address], [place] [address] Jun, [facility] [address] [id number] [address] [place] [address], [place] [address] Jun, [facility] [address] [id number] [address] [place] [address], [place] [address] 18 Jun, 2013 [facility] [address] [id number] [address] [place] [address], [place] [address] 18 Jun, 2013 [facility] [address] [id number] [address] [place] [address], [place] [address] 17 Jun, 2013 [facility] [address] [id number] [address] [place] [address], [place] [address] 17 Jun, 2013 [facility] [address] [id number] [address] [place] [address], [place] [address] 13 Jun, 2013 [facility] [address] [id number] [address] [place] [address], [place] [address] 12 Jun, 2013 [facility] [address] [id number] [address] [place] [address], [place] [address] 12 Jun, 2013 [facility] [address] [id number] [address] [place] [address], [place] [address] 09 Jun, 2013 [facility] [address] [id number] [address] [place] [address], [place] [address] 05 Jun, 2013 [facility] [address] [id number] [address] [place] [address], [place] [address] 05 Jun, 2013 [facility] [address] [id number] [address] [place] [address], [place] [address] 04 Jun, 2013 [facility] [address] [id number] [address] [place] [address], [place] [address] 04 Jun, 2013 [facility] [address] [id number] [address] [place] [address], [place] [address] 17 May, 2013 [facility] [address] [id number] [address] [place] [address], [place] [address] 17 May, 2013 [facility] [address] [id number] [address] [place] [address], [place] [address] May, [facility] [address] [id number] [address] [place] [address], [place] [address] May, [facility] [address] [id number] [address] [place] [address], [place] [address] May, [facility] [address] [id number] [address] [place] [address], [place] [address] May, [facility] [address] [id number] [address] [place] [address], [place] [address] Apr, [facility] [address] [id number] [address] [place] [address], [place] [address] Apr, [facility] [address] [id number] [address] [place] [address], [place] [address] Apr, [facility] [address] [id number] [address] [place] [address], [place] [address] Apr, [facility] [address] [id number] [address] [place] [address], [place] [address] Apr, [facility] [address] [id number] [address] [place] [address], [place] [address] Apr, [facility] [address] [id number] [address] [place] [address], [place] [address] Apr, [facility] [address] [id number] [address] [place] [address] Apr, [facility] [address] [id number] [address] [place] [address] 26 Mar, 2013 [facility] [address] [id number] [address] [place] [address] 24 Sep, 2012 [facility] [address] [id number] [address] [place] [address], [place] [address] 17 Mar, 2013 [facility] [address] [id number] [address] [place] [id number] 17 Mar, 2012 [facility] [address] [id number] [address] [place] [phone] 11 Mar, 2012 [facility] [address] [id number] [address] [place] [phone] 10 Mar, 2013 [facility] [address] [id number] [address] [place] [address], [place] [address] 05 Mar, 2013 [facility] [address] [id number] [address] [place] [address], [place] [address] 04 Mar, 2013 [facility] [address] [id number] [address] [place] [address], [place] [address] Jan, [facility] [address] [id number] [address] [place] [address], [place] [address] Jan, [facility] [address] [id number] [address] [place] [address], [place] [address] Jan, [facility] [address] [id number] [address] [place] [address], [place] [address] Jan, [facility] [address] [id number] [address] [place] [address], [place] [address] Jan, [facility] [address] [id number] [address] [place] [address], [place] [address] Jan, [facility] [address] [id number] [address] [place] [address], [place] [address] Dec, [facility] [address] [id number] [address] [place] [address], [place] [address] Dec, [facility] [address] [id number] [address] [place] [address], [place] [address] Dec, [facility] [address] [id number] [address] [place] [address], [place] [address] Dec, [facility] [address] [id number] [address] [place] [address], [place] [address] 18 Dec, 2012 [facility] [address] [id number] [address] [place] [address], [place] [address] 17 Dec, 2012 [facility] [address] [id number] [address] [place] [address], [place] [address] 16 Dec, 2012 [facility] [address] [id number] [address] [place] [address], [place] [address] 16 Dec, 2012 [facility] [address] [id number] [address] [place] [address], [place] [address] 15 Dec, 2012 [facility] [address] [id number] [address] [place] [address], [place] [address] 10 Dec, 2012 [facility] [address] [id number] [address] [place] [address], [place] [address] Dec, [facility] [address] [id number] [address] [place] [address], [place] [address] Dec, [facility] [address] [id number] [address] [place] [address], [place] [address] Dec, [facility] [address] [id number] [address] [place] [address], [place] [address] Dec, [facility] [address] [id number] [address] [place] [address], [place] [address] Dec, [facility] [address] [id number] [address] [place] [address], [place] [address] Dec, [facility] [address] [id number] [address] [place] [address], [place] [address] October, [facility] [address] [id number] [address] [place] [address], [place] [address] October, [facility] [address] [id number] [address] [place] [address], [place] [address] October, [facility] [address] [id number] [address] [place] [address], [place] [address] October, [facility] [address] [id number] [address] [place] [address], [place] [address] October, [facility] [address] [id number] [address] [place] [address], [place] [address] October, [facility] [address] [id number] [address] [place] [address], [place] [address] October, [facility] [address] [id number] [address] [place] [address], [place] [address] Oct, [facility] [address] [id number] [address] [place] [address], [place] [address] Oct, [facility] [address] [id number] [address] [place] [address], [place] [address] Oct, [facility] [address] [id number] [address] [place] [address], [place] [address] Oct, [facility] [address] [id number] [address] [place] [address], [place] [address] Oct, [facility] [address] [id number] [address] [place] [address], [place] [address] 18 Oct, 2012 [facility] [address] [id number] [address] [place] [address], [place] [address] Oct, [facility] [address] [id number] [address] [place] [address], [place] [phone] 15 Oct, 2012 [facility] [address] [id number] [address] [place] [address], [place] [address] Oct, [facility] [address] [id number] [address] [place] [address], [place] [address] Oct, [facility] [address] [id number] [address] [place] [address], [place] [phone] Oct, [facility] [address] [id number] [address] [place] [address], [place] [phone] Oct, [facility] [address] [id number] [address] [place] [address], [place] [phone] Aug, [facility] [address] [id number] [address] [place] [address], [place] [phone] Aug, [facility] [address] [id number] [address] [place] [address], [place] [phone] Aug, [facility] [address] [id number] [address] [place] [address], [place] [phone] 06 Aug, 2012 [facility] [address] [id number] [address] [place] [address], [place] [phone] 05 Aug, 2012 [facility] [address] [id number] [address] [place] [address], [place] [phone] 05 Aug, 2012 [facility] [address] [id number] [address] [place] [address], [place] [phone] 20 Aug, 2012 [facility] [address] [id number] [address] [place] [address], [place] [phone] 14 Aug, 2012 [facility] [address] [id number] [address] [place] [address], [place] [phone] 12 Aug, 2012 [facility] [address] [id number] [address] [place] [address], [place] [phone] 11 Aug, 2012 [facility] [address] [id number] [address] [place] [address], [place] [phone] 29 Jul, 2012 [facility] [address] [id number] [address] [place] [address], [place] [id number] 15 Jul, 2012 [facility] [address] [id number] [address] [place] [address], [place] [phone] 08 Jul, 2012 [facility] [address] [id number] [address] [place] [address], [place] [phone] 20 Jun, 2012 [facility] [address] [id number] [address] [place] [address], [place] [id number] 18 Jun, 2012 [facility] [address] [id number] [address] [place] [address], [place] [phone] 18 Jun, 2012 [facility] [address] [id number] [address] [place] [address], [place] [phone] 18 Jun, 2012 [facility] [address] [id number] [address] [place] [address], [place] [phone] 18 Jun, 2012 [facility] [address] [id number] [address] [place] [address], [place] [phone] 14 Jun, 2012 [facility] [address] [id number] [address] [place] [address], [place] [phone] 14 Jun, 2012 [facility] [address] [id number] [address] [place] [address], [place] [phone] 13 Jun, 2012 [facility] [address] [id number] [address] [place] [address], [place] [phone] 13 Jun, 2012 [facility] [address] [id number] [address] [place] [address], [place] [phone] 11 Jun, 2012 [facility] [address] [id number] [address] [place] [address], [place] [phone] 11 Jun, 2012 [facility] [address] [id number] [address] [place] [address], [place] [phone] 11 Jun, 2012 [facility] [address] [id number] [address] [place] [address], [place] [phone] 11 Jun, 2012 [facility] [address] [id number] [address] [place] [address], [place] [phone] 07 Jun, 2012 [facility] [address] [id number] [address] [place] [address], [place] [phone] Jun, [facility] [address] [id number] [address] [place] [address], [place] [phone] 06 Jun, 2012 [facility] [address] [id number] [address] [place] [address], [place] [phone] Jun, [facility] [address] [id number] [address] [place] [address], [place] [phone] Jun, [facility] [address] [id number] [address] [place] [address], [place] [phone] Jun, [facility] [address] [id number] [address] [place] [address], [place] [phone] 05 Jun, 2012 [facility] [address] [id number] [address] [place] [address], [place] [id number] 05 Jun, 2012 [facility] [address] [id number] [address] [place] [id number] Jun, [facility] [address] [id number] [address] [place] [address], [place] [phone] Jun, [facility] [address] [id number] [address] [place] [address] [id number] May, [facility] [address] [id number] [address] [place] [phone] May, [facility] [address] [id number] [address] [place] [phone] May, [facility] [address] [id number] [address] [place] [address], [place] [address] May, [facility] [address] [id number] [address] [place] [phone] May, [facility] [address] [id number] [address] [place] [phone] May, [facility] [address] [id number] [address] [place] [phone] May, [facility] [address] [id number] [address] [place] [phone] May, [facility] [address] [id number] [address] [place] [phone] Apr, [facility] [address] [id number] [address] [place] [phone] 30 Apr, 2012 [facility] [address] [id number] [address] [place] [phone] 29 Apr, 2012 [facility] [address] [id number] [address] [place] [phone] Apr, [facility] [address] [id number] [address] [place] [phone] Apr, [facility] [address] [id number] [address] [place] [phone] Apr, [facility] [address] [id number] [address] [place] [address], [place] [address] Apr, [facility] [address] [id number] [address] [place] [address], [place] [address] Apr, [facility] [address] [id number] [address] [place] [address], [place] [address] Apr, [facility] [address] [id number] [address] [place] [address], [place] [address] 08 Apr, 2012 [facility] [address] [id number] [address] [place] [address], [place] [address] Apr, [facility] [address] [id number] [address] [place] [address], [place] [address] Apr, [facility] [address] [id number] [address] [place] [address], [place] [phone] 19 Mar, 2012 [facility] [address] [id number] [address] [place] [address], [place] [id number] 18 Mar, 2012 [facility] [address] [id number] [address] [place] [address], [place] [address] Mar, [facility] [address] [id number] [address] [place] [address], [place] [address] Mar, [facility] [address] [id number] [address] [place] [id number] Mar, [facility] [address] [id number] [address] [place] [id number] Mar, [facility] [address] [id number] [address] [place] [phone] Mar, [facility] [address] [id number] [address] [place] [address], [place] [address] Jan, [facility] [address] [id number] [address] [place] [address], [place] [address] Jan, [facility] [address] [id number] [address] [place] [id number] Jan, [facility] [address] [id number] [address] [place] [address], [place] [id number] Jan, [facility] [address] [id number] [address] [place] [address], [place] [address] Jan, [facility] [address] [id number] [address] [place] [address], [place] [address] Jan, [facility] [address] [id number] [address] [place] [address], [place] [address] Jan, [facility] [address] [id number] [address] [place] [address], [place] [phone] Jan, [facility] [address] [id number] [address] [place] [address], [place] [address] Jan, [facility] [address] [id number] [address] [place] [address], [place] [address] Jan, [facility] [address] [id number] [address] [place] [address], [place] [address] Jan, [facility] [address] [id number] [address] [place] [address], [place] [address] Dec, [facility] [address] [id number] [address] [place] [address], [place] [address] Dec, [facility] [address] [id number] [address] [place] [address], [place] [phone] Dec, [facility] [address] [id number] [address] [place] [address], [place] [address] Dec, [facility] [address] [id number] [address] [place] [address], [place] [address] Dec, [facility] [address] [id number] [address] [place] [address], [place] [address] Dec, [facility] [address] [id number] [address] [place] [address], [place] [phone] Dec, [facility] [address] [id number] [address] [place] [address], [place] [id number] 17 Jan, 2012 [facility] [address] [id number] [address] [place] [address], [place] [id number] 16 Jan, 2012 [facility] [address] [id number] [address] [place] [address], [place] [address] Dec, [facility] [address] [id number] [address] [place] [address], [place] [address] Dec, [facility] [address] [id number] [address] [place] [address], [place] [address] Dec, [facility] [address] [id number] [address] [place] [address], [place] [address] Dec, [facility] [address] [id number] [address] [place] [address], [place] [address] Dec, [facility] [address] [id number] [address] [place] [address], [place] [address] Dec, [facility] [address] [id number] [address] [place] [address], [place] [address] Dec, [facility] [address] [id number] [address] [place] [address], [place] [address] 15 Dec, 2011 [facility] [address] [id number] [address] [place] [address], [place] [address] Dec, [facility] [address] [id number] [address] [place] [address], [place] [address] 05 Dec, 2011 [facility] [address] [id number] [address] [place] [address], [place] [address] October, [facility] [address] [id number] [address] [place] [address], [place] [address] October, [facility] [address] [id number] [address] [place] [address], [place] [address] October, [facility] [address] [id number] [address] [place] [address], [place] [address] October, [facility] [address] [id number] [address] [place] [address], [place] [address] October, [facility] [address] [id number] [address] [place] [address], [place] [address] October, [facility] [address] [id number] [address] [place] [address], [place] [address] Oct, [facility] [address] [id number] [address] [place] [address], [place] [address] Oct, [facility] [address] [id number] [address] [place] [address], [place] [address] Oct, [facility] [address] [id number] [address] [place] [address], [place] [address] Oct, [facility] [address] [id number] [address] [place] [address], [place] [address] Oct, [facility] [address] [id number] [address] [place] [address], [place] [address] Oct, [facility] [address] [id number] [address] [place] [address], [place] [address] Oct, [facility] [address] [id number] [address] [place] [address], [place] [address] Aug, [facility] [address] [id number] [address] [place] [address], [place] [address] Aug, [facility] [address] [id number] [address] [place] [address], [place] [address] Aug, [facility] [address] [id number] [address] [place] [address], [place] [address] Aug, [facility] [address] [id number] [address] [place] [address], [place] [address] Aug, [facility] [address] [id number] [address] [place] [address], [place] [address] Aug, [facility] [address] [id number] [address] [place] [address], [place] [address] Aug, [facility] [address] [id number] [address] [place] [address], [place] [address] Aug, [facility] [address] [id number] [address] [place] [address], [place] [address] Aug, [facility] [address] [id number] [address] [place] [address], [place] [address] Jul, [facility] [address] [id number] [address] [place] [address], [place] [address] Jul, [facility] [address] [id number] [address] [place] [address], [place] [address] Jul, [facility] [address] [id number] [address] [place] [address], [place] [address] Jul, [facility] [address] [id number] [address] [place] [address], [place] [address] Jun, [facility] [address] [id number] [address] [place] [address], [place] [address] Jun, [facility] [address] [id number] [address] [place] [address], [place] [address] May, [facility] [address] [id number] [address] [place] [address], [place] [address] May, [facility] [address] [id number] [address] [place] [address], [place] [address] May, [facility] [address] [id number] [address] [place] [address], [place] [address] May, [facility] [address] [id number] [address] [place] [address], [place] [address] May, [facility] [address] [id number] [address] [place] [address], [place] [address] Apr, [facility] [address] [id number] [address] [place] [address], [place] [address] Apr, [facility] [address] [id number] [address] [place] [address] Apr, [facility] [address] [id number] [address] [place] [id number] Jan, [facility] [address] [id number] [address] [place] [phone] Dec, [facility] [address] [id number] [address] [place] [phone] October, [facility] [address] [id number] [address] [place] [phone] Jun, [facility] [address] [id number] [address] [place] [phone] Apr, [facility] [address] [id number] [address] [place] [phone] Apr, [facility] [address] [facility] [id number] [address] [place] [phone] Apr, [facility] [address] [id number] [address] [place] [phone] Jun, IMMUNIZATIONS No Known Immunizations SOCIAL HISTORY [...]
--- OUTSIDE RECORDS SUMMARY | 2020-01-25 13:20 | XMS REPORT ---
Author Author Moreno Ana Doctor Organization [facility] Address Unknown Phone Unavailable Care Team Providers Care Senior Applications Architect Name Role Phone Migration, Doctor Unavailable Unavailable PROBLEMS Type Condition ICD9-CM Code [id number] Code Onset Dates Condition S tatus SNOMED Code Problem Chronic hepatitis C without hepatic coma B18.2 Active 988850293 Problem Cannabis abuse F12.10 Active 41468 009 Problem Bipolar 1 disorder F31.9 Active 3 91693945 Problem Attention deficit hyperactivity disorder (ADHD), combi luciano type F90.2 Active 53512684 Problem Attention deficit R41.840 Active 76 879996 Problem Hot flashes due to menopause N95.1 A ctive 958110593 Problem H/O laminectomy Z98.89 Active 1616 85213 Problem Other chronic pain G89.29 Active 8 8910238 Problem Anxiety disorder, unspecified type F41.9 Active 426312154 Problem Bipolar disorder, in partial remission, most rec ent episode hypomanic F31.71 Active [id number] ALLERGIES No Information ENCOUNTERS Encounter Location Date Diagnosis [facility] [address] [id number] [address] [place] [id number] Oct, [facility] [address] [id number] [address] [place] [id number] Oct, [facility] [address] [id number] [address] [place] [id number] Aug, [facility] [address] [id number] [address] [place] [id number] Jul, [facility] [address] [id number] [address] [place] [id number] Jul, [facility] [address] [id number] [address] [place] [id number] Apr, [facility] [address] [id number] [address] [place] [id number] Mar, Hot flashes due to menopause N95.1 ; Anxiety disorder, unspecified type F41.9 ; Low back pain M54.5 and Encounter for immunization Z23 [facility] [address] [id number] [address] [place] [id number] Dec, Other chronic pain G89.29 an d Low back pain M54.5 [facility] [address] [id number] [address] [place] [id number] October, [facility] [address] [id number] [address] [place] [id number] October, [facility] [address] [id number] [address] [place] [id number] October, [facility] [address] [id number] [address] [place] [id number] October, Other chronic pain G89.29 an d Chronic hepatitis C without hepatic coma B18.2 [facility] [address] [id number] [address] [place] [id number] Aug, Bipolar disorder, in partial remission, most recent episode hypomanic F31.71 ; Attention deficit hyperactivity disorder (ADHD), combined type F90.2 and Anxiety disorder, unspecified type F41.9 [facility] [address] [id number] [address] [place] [id number] Aug, [facility] [address] [id number] [address] [place] [id number] Aug, Bipolar disorder, in partial remission, most recent episode hypomanic F31.71 [facility] [address] [id number] [address] [place] [id number] Aug, [facility] [address] [id number] [address] [place] [id number] Aug, Bipolar disorder, in partial remission, most recent episode hypomanic F31.71 [facility] [address] [id number] [address] [place] [id number] Aug, Bipolar disorder, in partial remission, most recent episode hypomanic F31.71 ; Attention deficit hyperactivity disorder (ADHD), combined type F90.2 and Anxiety disorder, unspecified type F41.9 [facility] [address] [id number] [address] [place] [id number] Aug, Low back pain M54.5 and Pain in left wrist M25.532 [facility] [address] [id number] [address] [place] [id number] Aug, [facility] [address] [id number] [address] [place] [id number] Jun, [facility] [address] [id number] [address] [place] [id number] Apr, Bipolar disorder, in partial remission, most recent episode hypomanic F31.71 [facility] [address] [id number] [address] [place] [id number] Apr, [facility] [address] [id number] [address] [place] [id number] Apr, Bipolar disorder, in partial remission, most recent episode hypomanic F31.71 ; Attention deficit hyperactivity disorder (ADHD), combined type F90.2 ; Anxiety disorder, unspecified type F41.9 and 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 [facility] [address] [id number] [address] [place] [id number] Apr, Bipolar disorder, in partial remission, most recent episode hypomanic F31.71 [facility] [address] [id number] [address] [place] [id number] Apr, Bipolar disorder, in partial remission, most recent episode hypomanic F31.71 [facility] [address] [id number] [address] [place] [id number] Mar, [facility] [address] [id number] [address] [place] [id number] Mar, Bipolar disorder, in partial remission, most recent episode hypomanic F31.71 ; Encounter for immunization Z23 and Low back pain M54.5 [facility] [address] [id number] [address] [place] [id number] Mar, Bipolar disorder, in partial remission, most recent episode hypomanic F31.71 [facility] [address] [id number] [address] [place] [id number] Mar, Bipolar disorder, in partial remission, most recent episode hypomanic F31.71 [facility] [address] [id number] [address] [place] [id number] Jan, Bipolar disorder, in partial remission, most recent episode hypomanic F31.71 [facility] [address] [id number] [address] [place] [id number] Jan, Bipolar disorder, in partial remission, most recent episode hypomanic F31.71 [facility] [address] [id number] [address] [place] [id number] Dec, Bipolar disorder, in partial remission, most recent episode hypomanic F31.71 [facility] [address] [id number] [address] [place] [id number] Dec, Bipolar disorder, in partial remission, most recent episode hypomanic F31.71 ; Attention deficit hyperactivity disorder (ADHD), combined type F90.2 ; Anxiety disorder, unspecified type F41.9 and Other longterm (current) drug therapy Z79.899 [facility] [address] [id number] [address] [place] [id number] Dec, Bipolar disorder, in partial remission, most recent episode hypomanic F31.71 [facility] [address] [id number] [address] [place] [id number] Dec, Bipolar disorder, in partial remission, most recent episode hypomanic F31.71 [facility] [address] [id number] [address] [place] [id number] October, Bipolar disorder, in partial remission, most recent episode hypomanic F31.71 [facility] [address] [id number] [address] [place] [id number] October, [facility] [address] [id number] [address] [place] [id number] October, [facility] [address] [id number] [address] [place] [id number] Oct, Bipolar disorder, in partial remission, most recent episode hypomanic F31.71 ; Attention deficit hyperactivity disorder (ADHD), combined type F90.2 ; Anxiety disorder, unspecified type F41.9 and Encounter for drug screening Z02.83 [facility] [address] [id number] [address] [place] [id number] Oct, Bipolar disorder, in partial remission, most recent episode hypomanic F31.71 [facility] [address] [id number] [address] [place] [id number] Oct, Bipolar disorder, in partial remission, most recent episode hypomanic F31.71 [facility] [address] [id number] [address] [place] [id number] Aug, Bipolar disorder, in partial remission, most recent episode hypomanic F31.71 [facility] [address] [id number] [address] [place] [id number] Aug, Bipolar disorder, in partial remission, most recent episode hypomanic F31.71 [facility] [address] [id number] [address] [place] [id number] Aug, Bipolar disorder, in partial remission, most recent episode hypomanic F31.71 [facility] [address] [id number] [address] [place] [id number] Jul, Bipolar disorder, in partial remission, most recent episode hypomanic F31.71 ; Attention deficit hyperactivity disorder (ADHD), combined type F90.2 and Anxiety disorder, unspecified type F41.9 [facility] [address] [id number] [address] [place] [id number] Jul, Bipolar disorder, in partial remission, most recent episode hypomanic F31.71 [facility] [address] [id number] [address] [place] [id number] Jun, Bipolar disorder, in partial remission, most recent episode hypomanic F31.71 [facility] [address] [id number] [address] [place] [id number] May, Bipolar disorder, in partial remission, most recent episode hypomanic F31.71 [facility] [address] [id number] [address] [place] [id number] May, Bipolar disorder, in partial remission, most recent episode hypomanic F31.71 [facility] [address] [id number] [address] [place] [id number] Apr, [facility] [address] [id number] [address] [place] [id number] Apr, Bipolar disorder, in partial remission, most recent episode hypomanic F31.71 ; Attention deficit hyperactivity disorder (ADHD), combined type F90.2 ; Anxiety disorder, unspecified type F41.9 and Cannabis abuse F12.10 [facility] [address] [id number] [address] [place] [id number] Apr, Attention deficit hyperactiv ity disorder (ADHD), combined type F90.2 [facility] [address] [id number] [address] [place] [id number] Mar, Attention deficit hyperactiv ity disorder (ADHD), combined type F90.2 [facility] [address] [id number] [address] [place] [id number] 14 Mar, 2017 Anxiety disorder, unspecifie d type F41.9 [facility] [address] [id number] [address] [place] [id number] 18 Jan, 2017 Attention deficit hyperactiv ity disorder (ADHD), combined type F90.2 [facility] [address] [id number] [address] [place] [id number] 16 Jan, 2017 Anxiety disorder, unspecifie d type F41.9 [place] [id number] [id number] [address] [place] [id number] Jan, Other chronic pain G89.29 ; Chronic hepatitis C without hepatic coma B18.2 and Bipolar 1 disorder F31.9 [facility] [address] [id number] [address] [place] [id number] Dec, Attention deficit hyperactiv ity disorder (ADHD), combined type F90.2 [facility] [address] [id number] [address] [place] [id number] Dec, Bipolar disorder, in partial remission, most recent episode hypomanic F31.71 ; Attention deficit hyperactivity disorder (ADHD), combined type F90.2 and Anxiety disorder, unspecified type F41.9 [place] [address] [id number] [address] [place] [id number] Dec, Bipolar disorder, in partial remission, most recent episode hypomanic F31.71 ; Attention deficit hyperactivity disorder (ADHD), combined type F90.2 and Anxiety disorder, unspecified type F41.9 [facility] [address] [place] [id number] [address] [place] [id number] Dec, Bipolar 1 disorder F31.9 and Attention deficit R41.840 [place] [address] [place] [id number] [address] [place] [id number] Oct, Other chronic pain G89.29 ; Alopecia L65.9 and Screening, lipid Z13.220 [place] [address] [id number] [address] [place] [id number] Oct, [place] [address] [place] [id number] [address] [place] [id number] Aug, [place] [address] [place] [id number] [address] [place] [id number] Aug, Eustachian tube dysfunction, right H69.81 ; Vertigo R42 and Other chronic pain G89.29 [place] [address] [place] [id number] [address] [place] [id number] Aug, [facility] [address] [id number] [address] [place] [id number] Jun, [facility] [address] [id number] [address] [place] [id number] Jun, Low back pain M54.5 and Othe r chronic pain G89.29 [facility] [address] [id number] [address] [place] [id number] Jun, [facility] [address] [id number] [address] [place] [id number] May, [facility] [address] [id number] [address] [place] [id number] Jan, [facility] [address] [id number] [address] [place] [id number] Dec, [facility] [address] [id number] [address] [place] [id number] Dec, [facility] [address] [id number] [address] [place] [id number] Jun, [facility] [address] [id number] [address] [place] [id number] Apr, Eustachian tube dysfunction, unspecified laterality H69.80 ; Hot flashes N95.1 and Encounter for immunization Z23 [facility] [address] [id number] [address] [place] [id number] Jan, [facility] [address] [id number] [address] [place] [id number] Jan, [facility] [address] [id number] [address] [place] [id number] Jan, [facility] [address] [id number] [address] [place] [id number] Jan, [facility] [address] [id number] [address] [place] [id number] Jan, Encounter to establish care V65.8 ; Bipolar 1 disorder 296.7 ; Abdominal pain 789.00 ; Constipation 564.00 ; Hard of hearing 389.9 and Drug abuse 305.90 [facility] [address] [id number] [address] [place] [id number] Dec, [facility] [address] [id number] [address] [place] [id number] October, [facility] [address] [id number] [address] [place] [id number] October, [facility] [address] [id number] [address] [place] [phone] Oct, [facility] [address] [id number] [address] [place] [id number] Oct, [facility] [address] [id number] [address] [place] [phone] Oct, [facility] [address] [id number] [address] [place] [id number] Aug, [facility] [address] [id number] [address] [place] [id number] Aug, [facility] [address] [id number] [address] [place] [id number] Aug, [facility] [address] [id number] [address] [place] [id number] Aug, [facility] [address] [id number] [address] [place] [id number] Aug, [facility] [address] [id number] [address] [place] [id number] Aug, [facility] [address] [id number] [address] [place] [id number] Aug, [facility] [address] [id number] [address] [place] [id number] Aug, [facility] [address] [id number] [address] [place] [address], [place] [address] Aug, 2014 [facility] [address] [id number] [address] [place] [address], [place] [address] Aug, 2014 [facility] [address] [id number] [address] [place] [address], [place] [address] Aug, 2014 [facility] [address] [id number] [address] [place] [address], [place] [address] Aug, 2014 [facility] [address] [id number] [address] [place] [address], [place] [address] Aug, 2014 [facility] [address] [id number] [address] [place] [address], [place] [address] Aug, 2014 [facility] [address] [id number] [address] [place] [address], [place] [address] Aug, [facility] [address] [id number] [address] [place] [address], [place] [address] Jul, [facility] [address] [id number] [address] [place] [address], [place] [address] Jul, [facility] [address] [id number] [address] [place] [address], [place] [address] Jul, [facility] [address] [id number] [address] [place] [address], [place] [address] Jul, [facility] [address] [id number] [address] [place] [address], [place] [address] Jul, [facility] [address] [id number] [address] [place] [address], [place] [address] Jul, [facility] [address] [id number] [address] [place] [address], [place] [address] Jul, [facility] [address] [id number] [address] [place] [address], [place] [address] Jul, [facility] [address] [id number] [address] [place] [address], [place] [address] Jun, [facility] [address] [id number] [address] [place] [address], [place] [address] Jun, [facility] [address] [id number] [address] [place] [address], [place] [address] Jun, [facility] [address] [id number] [address] [place] [address], [place] [address] Jun, [facility] [address] [id number] [address] [place] [address], [place] [address] Jun, [facility] [address] [id number] [address] [place] [address], [place] [address] Jun, [facility] [address] [id number] [address] [place] [address], [place] [address] Jun, [facility] [address] [id number] [address] [place] [address], [place] [address] Jun, [facility] [address] [id number] [address] [place] [address], [place] [address] Jun, [facility] [address] [id number] [address] [place] [address], [place] [address] Jun, [facility] [address] [id number] [address] [place] [address], [place] [address] Jun, [facility] [address] [id number] [address] [place] [address], [place] [address] May, [facility] [address] [id number] [address] [place] [address], [place] [address] May, [facility] [address] [id number] [address] [place] [address], [place] [address] May, [facility] [address] [id number] [address] [place] [address], [place] [address] May, [facility] [address] [id number] [address] [place] [address], [place] [address] May, [facility] [address] [id number] [address] [place] [address], [place] [address] May, [facility] [address] [id number] [address] [place] [address], [place] [address] May, [facility] [address] [id number] [address] [place] [address], [place] [address] Apr, [facility] [address] [id number] [address] [place] [address], [place] [address] Apr, [facility] [address] [id number] [address] [place] [address], [place] [address] Apr, [facility] [address] [id number] [address] [place] [address], [place] [address] Apr, [facility] [address] [id number] [address] [place] [address], [place] [address] Apr, [facility] [address] [id number] [address] [place] [address], [place] [address] Apr, [facility] [address] [id number] [address] [place] [address], [place] [address] Mar, [facility] [address] [id number] [address] [place] [address], [place] [address] Mar, [facility] [address] [id number] [address] [place] [address], [place] [id number] Mar, [facility] [address] [id number] [address] [place] [address], [place] [id number] Mar, [facility] [address] [id number] [address] [place] [address], [place] [address] Mar, [facility] [address] [id number] [address] [place] [address], [place] [address] Mar, [facility] [address] [id number] [address] [place] [address], [place] [id number] Jan, [facility] [address] [id number] [address] [place] [address], [place] [address] Jan, [facility] [address] [id number] [address] [place] [address], [place] [address] Jan, [facility] [address] [id number] [address] [place] [address], [place] [address] Jan, [facility] [address] [id number] [address] [place] [address], [place] [address] Dec, [facility] [address] [id number] [address] [place] [address], [place] [id number] Dec, [facility] [address] [id number] [address] [place] [address], [place] [address] Dec, [facility] [address] [id number] [address] [place] [address], [place] [address] Dec, [facility] [address] [id number] [address] [place] [address], [place] [address] Dec, [facility] [address] [id number] [address] [place] [address], [place] [address] Dec, [facility] [address] [id number] [address] [place] [address], [place] [address] Dec, [facility] [address] [id number] [address] [place] [address], [place] [address] Dec, [facility] [address] [id number] [address] [place] [address], [place] [address] Dec, [facility] [address] [id number] [address] [place] [address], [place] [address] Dec, [facility] [address] [id number] [address] [place] [address], [place] [address] Dec, [facility] [address] [id number] [address] [place] [address], [place] [address] Dec, [facility] [address] [id number] [address] [place] [address], [place] [address] October, [facility] [address] [id number] [address] [place] [address], [place] [address] October, [facility] [address] [id number] [address] [place] [address], [place] [address] October, [facility] [address] [id number] [address] [place] [address], [place] [address] October, [facility] [address] [id number] [address] [place] [address], [place] [address] October, [facility] [address] [id number] [address] [place] [address], [place] [address] October, [facility] [address] [id number] [address] [place] [address], [place] [address] Oct, [facility] [address] [id number] [address] [place] [address], [place] [address] Oct, [facility] [address] [id number] [address] [place] [address], [place] [address] Oct, [facility] [address] [id number] [address] [place] [address], [place] [address] Oct, [facility] [address] [id number] [address] [place] [address], [place] [address] Oct, [facility] [address] [id number] [address] [place] [address], [place] [address] Oct, [facility] [address] [id number] [address] [place] [address], [place] [address] Oct, [facility] [address] [id number] [address] [place] [address], [place] [address] Oct, [facility] [address] [id number] [address] [place] [address], [place] [address] Oct, [facility] [address] [id number] [address] [place] [address], [place] [address] Oct, [facility] [address] [id number] [address] [place] [address], [place] [address] Oct, [facility] [address] [id number] [facility] [place] [address] 08 Oct, 2013 [facility] [address] [id number] [facility] [place] [address] 15 Aug, 2013 [facility] [address] [id number] [facility] [place] [address] 15 Aug, 2013 [facility] [address] [id number] [address] [place] [address], [place] [address] Aug, [facility] [address] [id number] [address] [place] [address], [place] [address] Aug, [facility] [address] [id number] [address] [place] [address], [place] [address] Aug, [facility] [address] [id number] [address] [place] [address], [place] [address] Aug, [facility] [address] [id number] [address] [place] [address], [place] [address] Aug, [facility] [address] [id number] [address] [place] [address], [place] [address] Aug, [facility] [address] [id number] [address] [place] [address], [place] [address] Aug, [facility] [address] [id number] [address] [place] [address], [place] [address] Aug, [facility] [address] [id number] [address] [place] [address], [place] [address] Aug, [facility] [address] [id number] [address] [place] [address], [place] [address] Aug, [facility] [address] [id number] [address] [place] [address], [place] [address] Aug, [facility] [address] [id number] [address] [place] [address], [place] [address] Aug, [facility] [address] [id number] [address] [place] [address], [place] [address] 14 Aug, [address] [facility] [address] [id number] [address] [place] [address], [place] [address] 14 Aug, 2013 [facility] [address] [id number] [address] [place] [address], [place] [address] 14 Aug, 2013 [facility] [address] [id number] [address] [place] [address], [place] [address] 14 Aug, 2013 [facility] [address] [id number] [address] [place] [address], [place] [address] 07 Aug, 2013 [facility] [address] [id number] [address] [place] [address], [place] [address] 07 Aug, 2013 [facility] [address] [id number] [address] [place] [address], [place] [address] 06 Aug, 2013 [facility] [address] [id number] [address] [place] [address], [place] [address] 06 Aug, 2013 [facility] [address] [id number] [address] [place] [address], [place] [address] 04 Aug, 2013 [facility] [address] [id number] [address] [place] [address], [place] [address] 04 Aug, [address] [facility] [address] [id number] [address] [place] [address], [place] [address] Aug, [facility] [address] [id number] [address] [place] [address], [place] [address] Jul, [facility] [address] [id number] [address] [place] [address], [place] [address] Jul, [facility] [address] [id number] [address] [place] [address], [place] [address] Jul, [facility] [address] [id number] [address] [place] [address], [place] [address] Jul, [facility] [address] [id number] [address] [place] [address], [place] [address] Jul, [facility] [address] [id number] [address] [place] [address], [place] [address] Jul, [facility] [address] [id number] [address] [place] [address], [place] [address] Jul, [facility] [address] [id number] [address] [place] [address], [place] [address] Jul, [facility] [address] [id number] [address] [place] [address], [place] [address] Jul, [facility] [address] [id number] [address] [place] [address], [place] [address] Jul, [facility] [address] [id number] [address] [place] [address], [place] [address] Jul, [facility] [address] [id number] [address] [place] [address], [place] [address] Jul, [facility] [address] [id number] [address] [place] [address], [place] [address] Jul, [facility] [address] [id number] [address] [place] [address], [place] [address] Jul, [facility] [address] [id number] [address] [place] [address], [place] [address] Jul, [facility] [address] [id number] [address] [place] [address], [place] [address] Jul, [facility] [address] [id number] [address] [place] [address], [place] [address] Jul, [facility] [address] [id number] [address] [place] [address], [place] [address] Jul, [facility] [address] [id number] [address] [place] [address], [place] [address] Jul, [facility] [address] [id number] [address] [place] [address], [place] [address] Jul, [facility] [address] [id number] [address] [place] [address], [place] [address] 31 Jun, 2013 [facility] [address] [id number] [address] [place] [address], [place] [address] 31 Jun, 2013 [facility] [address] [id number] [address] [place] [address], [place] [address] Jun, [facility] [address] [id number] [address] [place] [address], [place] [address] Jun, [facility] [address] [id number] [address] [place] [address], [place] [address] Jun, [facility] [address] [id number] [address] [place] [address], [place] [address] Jun, [facility] [address] [id number] [address] [place] [address], [place] [address] Jun, [facility] [address] [id number] [address] [place] [address], [place] [address] Jun, [facility] [address] [id number] [address] [place] [address], [place] [address] Jun, [facility] [address] [id number] [address] [place] [address], [place] [address] Jun, [facility] [address] [id number] [address] [place] [address], [place] [address] Jun, [facility] [address] [id number] [address] [place] [address], [place] [address] Jun, [facility] [address] [id number] [address] [place] [address], [place] [address] Jun, [facility] [address] [id number] [address] [place] [address], [place] [address] Jun, [facility] [address] [id number] [address] [place] [address], [place] [address] Jun, [facility] [address] [id number] [address] [place] [address], [place] [address] 18 Jun, [address] [facility] [address] [id number] [address] [place] [address], [place] [address] 18 Jun, 2013 [facility] [address] [id number] [address] [place] [address], [place] [address] 17 Jun, 2013 [facility] [address] [id number] [address] [place] [address], [place] [address] 17 Jun, 2013 [facility] [address] [id number] [address] [place] [address], [place] [address] 13 Jun, 2013 [facility] [address] [id number] [address] [place] [address], [place] [address] 12 Jun, 2013 [facility] [address] [id number] [address] [place] [address], [place] [address] 12 Jun, 2013 [facility] [address] [id number] [address] [place] [address], [place] [address] 09 Jun, 2013 [facility] [address] [id number] [address] [place] [address], [place] [address] 05 Jun, 2013 [facility] [address] [id number] [address] [place] [address], [place] [address] 05 Jun, 2013 [facility] [address] [id number] [address] [place] [address], [place] [address] 04 Jun, 2013 [facility] [address] [id number] [address] [place] [address], [place] [address] 04 Jun, [address] [facility] [address] [id number] [address] [place] [address], [place] [address] May, [facility] [address] [id number] [address] [place] [address], [place] [address] 17 May, 2013 [facility] [address] [id number] [address] [place] [address], [place] [address] May, [facility] [address] [id number] [address] [place] [address], [place] [address] May, [facility] [address] [id number] [address] [place] [address] [address] May, [facility] [address] [id number] [address] [place] [address], [place] [address] May, [facility] [address] [id number] [address] [place] [address], [place] [address] Apr, [facility] [address] [id number] [address] [place] [address], [place] [address] Apr, [facility] [address] [id number] [address] [place] [address], [place] [address] Apr, [facility] [address] [id number] [address] [place] [address], [place] [address] Apr, [facility] [address] [id number] [address] [place] [address], [place] [address] Apr, [facility] [address] [id number] [address] [place] [address], [place] [address] Apr, [facility] [address] [id number] [address] [place] [address], [place] [address] 15 Apr, 2013 [facility] [address] [id number] [address] [place] [address], [place] [address] Apr, [facility] [address] [id number] [address] [place] [id number] 26 Mar, 2013 [facility] [address] [id number] [address] [place] [id number] 24 Sep, 2012 [facility] [address] [id number] [address] [place] [address] 17 Sep, 2012 [facility] [address] [id number] [address] [place] [address], [place] [address] 17 Sep, 2012 [facility] [address] [id number] [address] [place] [id number] 11 Sep, 2012 [facility] [address] [id number] [address] [place] [address], [place] [address] 10 Mar, 2012 [facility] [address] [id number] [address] [place] [address], [place] [address] 05 Mar, 2013 [facility] [address] [id number] [address] [place] [address], [place] [address] 04 Mar, 2013 [facility] [address] [id number] [address] [place] [address], [place] [address] Jan, [facility] [address] [id number] [address] [place] [address], [place] [address] Jan, [facility] [address] [id number] [address] [place] [address], [place] [address] Jan, [facility] [address] [id number] [address] [place] [address], [place] [address] Jan, [facility] [address] [id number] [address] [place] [address], [place] [address] Jan, [facility] [address] [id number] [address] [place] [address], [place] [address] Jan, [facility] [address] [id number] [address] [place] [address], [place] [address] Dec, [facility] [address] [id number] [address] [place] [address], [place] [address] 24 Dec, 2012 [facility] [address] [id number] [address] [place] [address], [place] [address] Dec, [facility] [address] [id number] [address] [place] [address], [place] [address] Dec, [facility] [address] [id number] [address] [place] [address], [place] [address] 18 Dec, 2012 [facility] [address] [id number] [address] [place] [address], [place] [address] 17 Dec, 2012 [facility] [address] [id number] [address] [place] [address], [place] [address] 16 Dec, [address] [facility] [address] [id number] [address] [place] [address], [place] [address] 16 Dec, 2012 [facility] [address] [id number] [address] [place] [address], [place] [address] 15 Dec, 2012 [facility] [address] [id number] [address] [place] [address], [place] [address] Dec, [facility] [address] [id number] [address] [place] [address], [place] [address] Dec, [facility] [address] [id number] [address] [place] [address], [place] [address] Dec, [facility] [address] [id number] [address] [place] [address], [place] [address] Dec, [facility] [address] [id number] [address] [place] [address], [place] [address] Dec, [facility] [address] [id number] [address] [place] [address], [place] [address] Dec, [facility] [address] [id number] [address] [place] [address], [place] [address] Dec, [facility] [address] [id number] [address] [place] [address], [place] [address] October, [facility] [address] [id number] [address] [place] [address], [place] [address] October, [facility] [address] [id number] [address] [place] [address], [place] [address] October, [facility] [address] [id number] [address] [place] [address], [place] [address] October, [facility] [address] [id number] [address] [place] [address], [place] [address] October, [facility] [address] [id number] [address] [place] [address], [place] [address] October, [facility] [address] [id number] [address] [place] [address], [place] [address] October, [facility] [address] [id number] [address] [place] [address], [place] [address] 29 Oct, 2012 [facility] [address] [id number] [address] [place] [address], [place] [address] Oct, [facility] [address] [id number] [address] [place] [address], [place] [address] 24 Oct, 2012 [facility] [address] [id number] [address] [place] [address], [place] [address] Oct, [facility] [address] [id number] [address] [place] [address], [place] [address] Oct, [facility] [address] [id number] [address] [place] [address], [place] [address] 18 Oct, 2012 [facility] [address] [id number] [address] [place] [address], [place] [address] 17 Oct, 2012 [facility] [address] [id number] [address] [place] [address], [place] [address] 15 Oct, 2012 [facility] [address] [id number] [address] [place] [address], [place] [address] Oct, [facility] [address] [id number] [address] [place] [address], [place] [address] Oct, [facility] [address] [id number] [address] [place] [address], [place] [address] Oct, [facility] [address] [id number] [address] [place] [address], [place] [address] Oct, [facility] [address] [id number] [address] [place] [address], [place] [address] Aug, [facility] [address] [id number] [address] [place] [address], [place] [address] Aug, [facility] [address] [id number] [address] [place] [address], [place] [address] Aug, [facility] [address] [id number] [address] [place] [address], [place] [address] Aug, [facility] [address] [id number] [address] [place] [address], [place] [address] 05 Aug, [address] [facility] [address] [id number] [address] [place] [address], [place] [address] 05 Aug, 2012 [facility] [address] [id number] [address] [place] [address], [place] [address] 20 Aug, [address] [facility] [address] [id number] [address] [place] [address], [place] [address] 14 Aug, 2012 [facility] [address] [id number] [address] [place] [address], [place] [address] 12 Aug, 2012 [facility] [address] [id number] [address] [place] [address], [place] [address] 11 Aug, 2012 [facility] [address] [id number] [address] [place] [address], [place] [id number] 29 Jul, [address] [facility] [address] [id number] [address] [place] [address], [place] [address] 15 Jul, 2012 [facility] [address] [id number] [address] [place] [address], [place] [address] 08 Jul, 2012 [facility] [address] [id number] [address] [place] [address], [place] [address] 20 Jun, 2012 [facility] [address] [id number] [address] [place] [address], [place] [address] 18 Jun, [address] [facility] [address] [id number] [address] [place] [address], [place] [id number] 18 Jun, [address] [facility] [address] [id number] [address] [place] [address], [place] [address] 18 Jun, 2012 [facility] [address] [id number] [address] [place] [address], [place] [address] 18 Jun, 2012 [facility] [address] [id number] [address] [place] [address], [place] [address] 14 Jun, [address] [facility] [address] [id number] [address] [place] [address] [address] 14 Jun, 2012 [facility] [address] [id number] [address] [place] [address], [place] [address] 13 Jun, 2012 [facility] [address] [id number] [address] [place] [address], [place] [address] 13 Jun, 2012 [facility] [address] [id number] [address] [place] [address], [place] [id number] 11 Jun, 2012 [facility] [address] [id number] [address] [place] [address], [place] [id number] 11 Jun, 2012 [facility] [address] [id number] [address] [place] [address], [place] [address] Jun, [facility] [address] [id number] [address] [place] [address], [place] [address] Jun, [facility] [address] [id number] [address] [place] [address], [place] [id number] 07 Jun, 2012 [facility] [address] [id number] [address] [place] [address], [place] [address] 07 Jun, 2012 [facility] [address] [id number] [address] [place] [address], [place] [address] Jun, [facility] [address] [id number] [address] [place] [address], [place] [address] 06 Jun, 2012 [facility] [address] [id number] [address] [place] [address], [place] [address] Jun, [facility] [address] [id number] [address] [place] [address], [place] [address] Jun, [facility] [address] [id number] [address] [place] [address], [place] [address] Jun, [facility] [address] [id number] [address] [place] [address], [place] [address] 05 Jun, 2012 [facility] [address] [id number] [address] [place] [address], [place] [address] Jun, [facility] [address] [id number] [address] [place] [address], [place] [address] Jun, [facility] [address] [id number] [address] [place] [address], [place] [address] May, [facility] [address] [id number] [address] [place] [address], [place] [address] May, [facility] [address] [id number] [address] [place] [address], [place] [address] May, [facility] [address] [id number] [address] [place] [address], [place] [address] May, [facility] [address] [id number] [address] [place] [address], [place] [address] May, [facility] [address] [id number] [address] [place] [address], [place] [address] May, [facility] [address] [id number] [address] [place] [address], [place] [address] May, [facility] [address] [id number] [address] [place] [address], [place] [address] May, [facility] [address] [address] [id number] [address] [place] [address], [place] [address] Apr, [facility] [address] [id number] [address] [place] [address], [place] [address] Apr, [facility] [address] [id number] [address] [place] [address], [place] [address] 29 Apr, 2012 [facility] [address] [id number] [address] [place] [id number] Apr, [facility] [address] [id number] [address] [place] [address], [place] [address] Apr, [facility] [address] [id number] [address] [place] [address], [place] [address] Apr, [facility] [address] [id number] [address] [place] [id number] Apr, [facility] [address] [id number] [address] [place] [address], [place] [address] Apr, [facility] [address] [id number] [address] [place] [address], [place] [address] Apr, [facility] [address] [id number] [address] [place] [address], [place] [address] Apr, [facility] [address] [id number] [address] [place] [address], [place] [address] Apr, [facility] [address] [id number] [address] [place] [address], [place] [address] Apr, [facility] [address] [id number] [address] [place] [address], [place] [address] Mar, [facility] [address] [id number] [address] [place] [address], [place] [address] 18 Mar, 2012 [facility] [address] [id number] [address] [place] [id number] Mar, [facility] [address] [id number] [address] [place] [address], [place] [address] Mar, [facility] [address] [id number] [address] [place] [id number] Mar, [facility] [address] [id number] [address] [place] [id number] Mar, [facility] [address] [id number] [address] [place] [id number] Mar, [facility] [address] [id number] [address] [place] [id number] Jan, [facility] [address] [id number] [address] [place] [id number] Jan, [facility] [address] [id number] [address] [place] [id number] Jan, [facility] [address] [id number] [address] [place] [id number] Jan, [facility] [address] [id number] [address] [place] [address], [place] [id number] Jan, [facility] [address] [id number] [address] [place] [address], [place] [address] Jan, [facility] [address] [id number] [address] [place] [address], [place] [address] Jan, [facility] [address] [id number] [address] [place] [address], [place] [address] Jan, [facility] [address] [id number] [address] [place] [address], [place] [address] Jan, [facility] [address] [id number] [address] [place] [address], [place] [address] Jan, [facility] [address] [id number] [address] [place] [address], [place] [address] Jan, [facility] [address] [id number] [address] [place] [address], [place] [address] Dec, [facility] [address] [id number] [address] [place] [address], [place] [address] Dec, [facility] [address] [id number] [address] [place] [address], [place] [address] Dec, [facility] [address] [id number] [address] [place] [address], [place] [address] Dec, [facility] [address] [id number] [address] [place] [address], [place] [address] Dec, [facility] [address] [id number] [address] [place] [address], [place] [address] Dec, [facility] [address] [id number] [address] [place] [address], [place] [address] Dec, [facility] [address] [id number] [address] [place] [address], [place] [address] Dec, [facility] [address] [id number] [address] [place] [address], [place] [id number] 16 Jan, 2012 [facility] [address] [id number] [address] [place] [address], [place] [address] 13 Jan, 2012 [facility] [address] [id number] [address] [place] [address], [place] [address] 13 Jan, 2012 [facility] [address] [id number] [address] [place] [address], [place] [address] Dec, [facility] [address] [id number] [address] [place] [address], [place] [address] Dec, [facility] [address] [id number] [address] [place] [address], [place] [address] Dec, [facility] [address] [id number] [address] [place] [address], [place] [address] Dec, [facility] [address] [id number] [address] [place] [address], [place] [address] Dec, [facility] [address] [id number] [address] [place] [address], [place] [address] Dec, [facility] [address] [id number] [address] [place] [address], [place] [address] Dec, [facility] [address] [id number] [address] [place] [address], [place] [address] Dec, [facility] [address] [id number] [address] [place] [address], [place] [address] October, [facility] [address] [id number] [address] [place] [address], [place] [address] October, [facility] [address] [id number] [address] [place] [address], [place] [address] October, [facility] [address] [id number] [address] [place] [address], [place] [address] October, [facility] [address] [id number] [address] [place] [address], [place] [address] October, [facility] [address] [id number] [address] [place] [address], [place] [address] October, [facility] [address] [id number] [address] [place] [address], [place] [address] Oct, [facility] [address] [id number] [address] [place] [address], [place] [address] Oct, [facility] [address] [id number] [address] [place] [address], [place] [address] Oct, [facility] [address] [id number] [address] [place] [address], [place] [address] Oct, [facility] [address] [id number] [address] [place] [address], [place] [address] Oct, [facility] [address] [id number] [address] [place] [address], [place] [address] Oct, [facility] [address] [id number] [address] [place] [address], [place] [address] Oct, [facility] [address] [id number] [address] [place] [address], [place] [address] Aug, [facility] [address] [id number] [address] [place] [address], [place] [address] Aug, [facility] [address] [id number] [address] [place] [address], [place] [address] Aug, [facility] [address] [id number] [address] [place] [address], [place] [address] Aug, [facility] [address] [id number] [address] [place] [address], [place] [address] Aug, [facility] [address] [id number] [address] [place] [address], [place] [address] Aug, [facility] [address] [id number] [address] [place] [address], [place] [address] Aug, [facility] [address] [id number] [address] [place] [address], [place] [address] Aug, [facility] [address] [id number] [address] [place] [address], [place] [address] Aug, [facility] [address] [id number] [address] [place] [address], [place] [address] Jul, [facility] [address] [id number] [address] [place] [address], [place] [address] Jul, [facility] [address] [id number] [address] [place] [address], [place] [address] Jul, [facility] [address] [id number] [address] [place] [address], [place] [address] Jul, [facility] [address] [id number] [address] [place] [address], [place] [address] Jun, [facility] [address] [id number] [address] [place] [address], [place] [address] Jun, [facility] [address] [id number] [address] [place] [address], [place] [address] May, [facility] [address] [id number] [address] [place] [address], [place] [address] May, [facility] [address] [id number] [address] [place] [address], [place] [address] May, [facility] [address] [id number] [address] [place] [address], [place] [address] May, [facility] [address] [id number] [address] [place] [address], [place] [address] May, [facility] [address] [id number] [address] [place] [address], [place] [address] 28 Apr, 2011 [facility] [address] [id number] [address] [place] [address], [place] [address] 28 Apr, 2011 [facility] [address] [id number] [address] [place] [address], [place] [address] 10 Apr, 2011 [facility] [address] [id number] [address] [place] [id number] Jan, [facility] [address] [id number] [address] [place] [id number] Dec, [facility] [address] [id number] [address] [place] [id number] October, [facility] [address] [id number] [address] [place] [id number] Jun, [facility] [address] [id number] [address] [place] [id number] Apr, [facility] [address] [id number] [address] [place] [id number] Apr, [facility] [address] [id number] [address] [place] [id number] Apr, [facility] [address] [id number] [address] [place] [id number] Jun, IMMUNIZATIONS No Known Immunizations SOCIAL HISTORY Never Assessed REASON FOR VISIT PLAN OF CARE VITAL SIGNS Height 69 in 2013-03-28 Weight 142 lbs 2013-03-28 Temperature 99.2 degrees Fahrenheit 2013-03-28 Heart Rate 80 bpm 2013-03-28 Respiratory Rate 24 2013-03-28 Blood pressure systolic 126 mmHg 2013-03-28 Blood pressure diastolic 90 mmHg 2013-03-28 MEDICATIONS Unknown Medications RESULTS No Results PROCEDURES [...]
--- OUTSIDE RECORDS SUMMARY | 2020-01-25 13:20 | XMS REPORT ---
Author Author Moreno Ana Doctor Organization [facility] Address Unknown Phone Unavailable Care Team Providers Care Model Maker Fire[employer] Name Role Phone Migration, Doctor Unavailable Unavailable PROBLEMS Type Condition ICD9-CM Code [id number] Code Onset Dates Condition S tatus SNOMED Code Problem Chronic hepatitis C without hepatic coma B18.2 Active 136659780 Problem Cannabis abuse F12.10 Active 20175 009 Problem Bipolar 1 disorder F31.9 Active 3 65773649 Problem Attention deficit hyperactivity disorder (ADHD), combi luciano type F90.2 Active 00967822 Problem Attention deficit R41.840 Active 76 446132 Problem Hot flashes due to menopause N95.1 A ctive 125266338 Problem H/O laminectomy Z98.89 Active 1616 38211 Problem Other chronic pain G89.29 Active 8 9106503 Problem Anxiety disorder, unspecified type F41.9 Active 117325911 Problem Bipolar disorder, in partial remission, most rec ent episode hypomanic F31.71 Active 991540315 ALLERGIES No Information ENCOUNTERS Encounter Location Date Diagnosis [facility] [address] [place] [address] [id number] [address] [place] [id number] Oct, [facility] [address] [facility] [id number] [address] [place] [phone] Oct, [facility] [address] [facility] [id number] [address] [place] [phone] Aug, [facility] [address] [facility] [id number] [address] [place] [phone] Jul, [facility] [address] [facility] [id number] [address] [place] [phone] Jul, [facility] [address] [facility] [id number] [address] [place] [phone] Apr, [facility] [address] [facility] [id number] [address] [place] [phone] Mar, Hot flashes due to menopause N95.1 ; Anxiety disorder, unspecified type F41.9 ; Low back pain M54.5 and Encounter for immunization Z23 [facility] [address] [facility] [id number] [address] [place] [phone] Dec, Other chronic pain G89.29 an d Low back pain M54.5 [facility] [address] [facility] [id number] [address] [place] [phone] October, [facility] [address] [facility] [id number] [address] [place] [phone] October, [facility] [address] [facility] [id number] [address] [place] [phone] October, [facility] [address] [facility] [id number] [address] [place] [phone] October, Other chronic pain G89.29 an d Chronic hepatitis C without hepatic coma B18.2 [facility] [address] [facility] [id number] [address] [place] [id number] Aug, Bipolar disorder, in partial remission, most recent episode hypomanic F31.71 ; Attention deficit hyperactivity disorder (ADHD), combined type F90.2 and Anxiety disorder, unspecified type F41.9 [facility] [address] [facility] [id number] [address] [place] [phone] Aug, [facility] [address] [facility] [id number] [address] [place] [phone] Aug, Bipolar disorder, in partial remission, most recent episode hypomanic F31.71 [facility] [address] [facility] [id number] [address] [place] [phone] Aug, [facility] [address] [facility] [id number] [address] [place] [phone] Aug, Bipolar disorder, in partial remission, most recent episode hypomanic F31.71 [facility] [address] [facility] [id number] [address] [place] [phone] Aug, Bipolar disorder, in partial remission, most recent episode hypomanic F31.71 ; Attention deficit hyperactivity disorder (ADHD), combined type F90.2 and Anxiety disorder, unspecified type F41.9 [facility] [address] [id number] [address] [place] [phone] Aug, Low back pain M54.5 and Pain in left wrist M25.532 [facility] [address] [id number] [address] [place] [phone] Aug, [facility] [address] [id number] [address] [place] [phone] Jun, [facility] [address] [id number] [address] [place] [phone] Apr, Bipolar disorder, in partial remission, most recent episode hypomanic F31.71 [facility] [address] [id number] [address] [place] [phone] Apr, [facility] [address] [id number] [address] [place] [phone] Apr, Bipolar disorder, in partial remission, most recent episode hypomanic F31.71 ; Attention deficit hyperactivity disorder (ADHD), combined type F90.2 ; Anxiety disorder, unspecified type F41.9 and Other medical terminologist (current) drug therapy Z79.899 [facility] [address] [id number] [address] [place] [phone] Apr, Bipolar disorder, in partial remission, most recent episode hypomanic F31.71 [facility] [address] [id number] [address] [place] [phone] Apr, Bipolar disorder, in partial remission, most recent episode hypomanic F31.71 [facility] [address] [id number] [address] [place] [phone] Mar, [facility] [address] [id number] [address] [place] [phone] Mar, Bipolar disorder, in partial remission, most recent episode hypomanic F31.71 ; Encounter for immunization Z23 and Low back pain M54.5 [facility] [address] [id number] [address] [place] [phone] Mar, Bipolar disorder, in partial remission, most recent episode hypomanic F31.71 [facility] [address] [id number] [address] [place] [phone] Mar, Bipolar disorder, in partial remission, most recent episode hypomanic F31.71 [facility] [address] [id number] [address] [place] [phone] Jan, Bipolar disorder, in partial remission, most recent episode hypomanic F31.71 [facility] [address] [id number] [address] [place] [phone] Jan, Bipolar disorder, in partial remission, most recent episode hypomanic F31.71 [facility] [address] [facility] [id number] [address] [place] [phone] Dec, Bipolar disorder, in partial remission, most recent episode hypomanic F31.71 [facility] [address] [id number] [address] [place] [phone] Dec, Bipolar disorder, in partial remission, most recent episode hypomanic F31.71 ; Attention deficit hyperactivity disorder (ADHD), combined type F90.2 ; Anxiety disorder, unspecified type F41.9 and Other fci (current) drug therapy Z79.899 [facility] [address] [id number] [address] [place] [phone] Dec, Bipolar disorder, in partial remission, most recent episode hypomanic F31.71 [facility] [address] [id number] [address] [place] [phone] Dec, Bipolar disorder, in partial remission, most recent episode hypomanic F31.71 [facility] [address] [id number] [address] [place] [phone] October, Bipolar disorder, in partial remission, most recent episode hypomanic F31.71 [facility] [address] [id number] [address] [place] [phone] October, [facility] [address] [id number] [address] [place] [phone] October, [facility] [address] [id number] [address] [place] [phone] Oct, Bipolar disorder, in partial remission, most recent episode hypomanic F31.71 ; Attention deficit hyperactivity disorder (ADHD), combined type F90.2 ; Anxiety disorder, unspecified type F41.9 and Encounter for drug screening Z02.83 [facility] [address] [id number] [address] [place] [phone] Oct, Bipolar disorder, in partial remission, most recent episode hypomanic F31.71 [facility] [address] [facility] [id number] [address] [place] [phone] Oct, Bipolar disorder, in partial remission, most recent episode hypomanic F31.71 [facility] [address] [facility] [id number] [address] [place] [phone] Aug, Bipolar disorder, in partial remission, most recent episode hypomanic F31.71 [facility] [address] [facility] [id number] [address] [place] [phone] Aug, Bipolar disorder, in partial remission, most recent episode hypomanic F31.71 [facility] [address] [facility] [id number] [address] [place] [phone] Aug, Bipolar disorder, in partial remission, most recent episode hypomanic F31.71 [facility] [address] [id number] [address] [place] [phone] Jul, Bipolar disorder, in partial remission, most recent episode hypomanic F31.71 ; Attention deficit hyperactivity disorder (ADHD), combined type F90.2 and Anxiety disorder, unspecified type F41.9 [facility] [address] [id number] [address] [place] [phone] Jul, Bipolar disorder, in partial remission, most recent episode hypomanic F31.71 [facility] [address] [id number] [address] [place] [id number] Jun, Bipolar disorder, in partial remission, most recent episode hypomanic F31.71 [facility] [address] [id number] [address] [place] [phone] May, Bipolar disorder, in partial remission, most recent episode hypomanic F31.71 [facility] [address] [id number] [address] [place] [phone] May, Bipolar disorder, in partial remission, most recent episode hypomanic F31.71 [facility] [address] [id number] [address] [place] [phone] Apr, [facility] [address] [facility] [id number] [address] [place] [phone] Apr, Bipolar disorder, in partial remission, most recent episode hypomanic F31.71 ; Attention deficit hyperactivity disorder (ADHD), combined type F90.2 ; Anxiety disorder, unspecified type F41.9 and Cannabis abuse F12.10 [facility] [address] [id number] [address] [place] [phone] Apr, Attention deficit hyperactiv ity disorder (ADHD), combined type F90.2 [facility] [address] [facility] [id number] [address] [place] [phone] Mar, Attention deficit hyperactiv ity disorder (ADHD), combined type F90.2 [facility] [address] [facility] [id number] [address] [place] [phone] 14 Mar, 2017 Anxiety disorder, unspecifie d type F41.9 [facility] [address] [facility] [id number] [address] [place] [phone] 18 Jan, 2017 Attention deficit hyperactiv ity disorder (ADHD), combined type F90.2 [facility] [address] [facility] [id number] [address] [place] [phone] 16 Jan, 2017 Anxiety disorder, unspecifie d type F41.9 [place] [id number] [facility] [id number] [address] [place] [phone] Jan, Other chronic pain G89.29 ; Chronic hepatitis C without hepatic coma B18.2 and Bipolar 1 disorder F31.9 [facility] [address] [facility] [id number] [address] [place] [phone] Dec, Attention deficit hyperactiv ity disorder (ADHD), combined type F90.2 [facility] [address] [facility] [id number] [address] [place] [phone] Dec, Bipolar disorder, in partial remission, most recent episode hypomanic F31.71 ; Attention deficit hyperactivity disorder (ADHD), combined type F90.2 and Anxiety disorder, unspecified type F41.9 [place] [address] [facility] [id number] [address] [place] [phone] Dec, Bipolar disorder, in partial remission, most recent episode hypomanic F31.71 ; Attention deficit hyperactivity disorder (ADHD), combined type F90.2 and Anxiety disorder, unspecified type F41.9 [facility] [address] [place] [id number] [address] [place] [phone] Dec, Bipolar 1 disorder F31.9 and Attention deficit R41.840 [place] [address] [place] [id number] [address] [place] [phone] Oct, Other chronic pain G89.29 ; Alopecia L65.9 and Screening, lipid Z13.220 [place] [address] [facility] [id number] [address] [place] [phone] Oct, [place] [address] [place] [id number] [address] [place] [phone] Aug, [place] [address] [place] [id number] [address] [place] [phone] Aug, Eustachian tube dysfunction, right H69.81 ; Vertigo R42 and Other chronic pain G89.29 [place] [address] [place] [id number] [address] [place] [phone] Aug, [facility] [address] [id number] [address] [place] [phone] Jun, [facility] [address] [id number] [address] [place] [phone] Jun, Low back pain M54.5 and Othe r chronic pain G89.29 [facility] [address] [id number] [address] [place] [phone] Jun, [facility] [address] [id number] [address] [place] [phone] May, [facility] [address] [id number] [address] [place] [id number] Jan, [facility] [address] [id number] [address] [place] [phone] Dec, [facility] [address] [id number] [address] [place] [phone] Dec, [facility] [address] [id number] [address] [place] [phone] Jun, [facility] [address] [id number] [address] [place] [phone] Apr, Eustachian tube dysfunction, unspecified laterality H69.80 ; Hot flashes N95.1 and Encounter for immunization Z23 [facility] [address] [id number] [address] [place] [phone] Jan, [facility] [address] [id number] [address] [place] [phone] Jan, [facility] [address] [id number] [address] [place] [phone] Jan, [facility] [address] [facility] [id number] [address] [place] [phone] Jan, [facility] [address] [id number] [address] [place] [phone] Jan, Encounter to establish care V65.8 ; Bipolar 1 disorder 296.7 ; Abdominal pain 789.00 ; Constipation 564.00 ; Hard of hearing 389.9 and Drug abuse 305.90 [facility] [address] [id number] [address] [place] [phone] Dec, [facility] [address] [facility] [id number] [address] [place] [phone] October, [facility] [address] [id number] [address] [place] [phone] October, [facility] [address] [id number] [address] [place] [phone] Oct, [facility] [address] [id number] [address] [place] [phone] Oct, [facility] [address] [facility] [id number] [address] [place] [phone] Oct, [facility] [address] [id number] [address] [place] [phone] Aug, [facility] [address] [id number] [address] [place] [phone] Aug, [facility] [address] [facility] [id number] [address] [place] [phone] Aug, [facility] [address] [id number] [address] [place] [phone] Aug, [facility] [address] [id number] [address] [place] [phone] Aug, [facility] [address] [id number] [address] [place] [phone] Aug, [facility] [address] [id number] [address] [place] [phone] Aug, [facility] [address] [id number] [address] [place] [id number] Aug, [facility] [address] [id number] [address] [place] [address], [place] [phone] Aug, 2014 [facility] [address] [id number] [address] [place] [address], [place] [phone] Aug, 2014 [facility] [address] [id number] [address] [place] [address], [place] [phone] Aug, 2014 [facility] [address] [id number] [address] [place] [address], [place] [phone] Aug, 2014 [facility] [address] [id number] [address] [place] [address], [place] [id number] Aug, 2014 [facility] [address] [id number] [address] [place] [address], [place] [phone] Aug, 2014 [facility] [address] [id number] [address] [place] [address], [place] [phone] Aug, [facility] [address] [id number] [address] [place] [address], [place] [phone] Jul, [facility] [address] [id number] [address] [place] [address], [place] [phone] Jul, [facility] [address] [id number] [address] [place] [address], [place] [id number] Jul, [facility] [address] [id number] [address] [place] [address], [place] [phone] Jul, [facility] [address] [id number] [address] [place] [address], [place] [id number] Jul, [facility] [address] [id number] [address] [place] [address], [place] [phone] Jul, [facility] [address] [id number] [address] [place] [address], [place] [id number] Jul, [facility] [address] [id number] [address] [place] [address], [place] [id number] Jul, [facility] [address] [id number] [address] [place] [address], [place] [phone] Jun, [facility] [address] [id number] [address] [place] [address], [place] [phone] Jun, [facility] [address] [id number] [address] [place] [address], [place] [id number] Jun, [facility] [address] [id number] [address] [place] [address], [place] [phone] Jun, [facility] [address] [id number] [address] [place] [address], [place] [phone] Jun, [facility] [address] [id number] [address] [place] [address], [place] [id number] Jun, [facility] [address] [id number] [address] [place] [address], [place] [phone] Jun, [facility] [address] [id number] [address] [place] [address], [place] [id number] Jun, [facility] [address] [id number] [address] [place] [address], [place] [id number] Jun, [facility] [address] [id number] [address] [place] [address], [place] [phone] Jun, [facility] [address] [id number] [address] [place] [address], [place] [id number] Jun, [facility] [address] [id number] [address] [place] [address], [place] [id number] May, [facility] [address] [id number] [address] [place] [address], [place] [phone] May, [facility] [address] [id number] [address] [place] [address], [place] [id number] May, [facility] [address] [id number] [address] [place] [address], [place] [phone] May, [facility] [address] [id number] [address] [place] [address], [place] [phone] May, [facility] [address] [id number] [address] [place] [address], [place] [id number] May, [facility] [address] [id number] [address] [place] [address], [place] [id number] May, [facility] [address] [id number] [address] [place] [address], [place] [id number] Apr, [facility] [address] [id number] [address] [place] [address], [place] [phone] Apr, [facility] [address] [id number] [address] [place] [address], [place] [id number] Apr, [facility] [address] [id number] [address] [place] [address], [place] [id number] Apr, [facility] [address] [id number] [address] [place] [address], [place] [id number] Apr, [facility] [address] [id number] [address] [place] [address], [place] [id number] Apr, [facility] [address] [id number] [address] [place] [address], [place] [id number] Mar, [facility] [address] [id number] [address] [place] [address], [place] [id number] Mar, [facility] [address] [id number] [address] [place] [address], [place] [id number] Mar, [facility] [address] [id number] [address] [place] [address], [place] [id number] Mar, [facility] [address] [id number] [address] [place] [address], [place] [id number] Mar, [facility] [address] [id number] [address] [place] [address], [place] [id number] Mar, [facility] [address] [id number] [address] [place] [address], [place] [id number] Jan, [facility] [address] [id number] [address] [place] [address], [place] [id number] Jan, [facility] [address] [id number] [address] [place] [address], [place] [id number] Jan, [facility] [address] [id number] [address] [place] [address], [place] [id number] Jan, [facility] [address] [id number] [address] [place] [address], [place] [id number] Dec, [facility] [address] [id number] [address] [place] [address], [place] [address] Dec, [facility] [address] [id number] [address] [place] [address], [place] [id number] Dec, [facility] [address] [id number] [address] [place] [address], [place] [address] Dec, [facility] [address] [id number] [address] [place] [address], [place] [address] Dec, [facility] [address] [id number] [address] [place] [address], [place] [id number] Dec, [facility] [address] [id number] [address] [place] [address], [place] [id number] Dec, [facility] [address] [id number] [address] [place] [address], [place] [address] Dec, [facility] [address] [id number] [address] [place] [address], [place] [address] Dec, [facility] [address] [id number] [address] [place] [address], [place] [id number] Dec, [facility] [address] [id number] [address] [place] [address], [place] [address] Dec, [facility] [address] [id number] [address] [place] [address], [place] [address] Dec, [facility] [address] [id number] [address] [place] [address], [place] [address] October, [facility] [address] [id number] [address] [place] [address], [place] [address] October, [facility] [address] [id number] [address] [place] [address], [place] [address] October, [facility] [address] [id number] [address] [place] [address], [place] [id number] October, [facility] [address] [id number] [address] [place] [address], [place] [address] October, [facility] [address] [id number] [address] [place] [address], [place] [address] October, [facility] [address] [id number] [address] [place] [address], [place] [id number] Oct, [facility] [address] [id number] [address] [place] [address], [place] [id number] Oct, [facility] [address] [id number] [address] [place] [address], [place] [address] Oct, [facility] [address] [id number] [address] [place] [address], [place] [id number] Oct, [facility] [address] [id number] [address] [place] [address], [place] [address] Oct, [facility] [address] [id number] [address] [place] [address], [place] [id number] Oct, [facility] [address] [id number] [address] [place] [address], [place] [address] Oct, [facility] [address] [id number] [address] [place] [address], [place] [id number] Oct, [facility] [address] [id number] [address] [place] [address], [place] [id number] Oct, [facility] [address] [id number] [address] [place] [address], [place] [id number] Oct, [facility] [address] [id number] [address] [place] [address], [place] [address] Oct, [facility] [address] [id number] [facility] [place] [address] 08 Oct, 2013 [facility] [address] [id number] [facility] [place] [address] 15 Aug, 2013 [facility] [address] [id number] [facility] [place] [address] 15 Aug, 2013 [facility] [address] [id number] [address] [place] [address], [place] [address] Aug, [facility] [address] [id number] [address] [place] [address], [place] [address] Aug, [facility] [address] [id number] [address] [place] [address], [place] [address] Aug, [facility] [address] [id number] [address] [place] [address], [place] [id number] Aug, [facility] [address] [id number] [address] [place] [address], [place] [address] Aug, [facility] [address] [id number] [address] [place] [address], [place] [address] Aug, [facility] [address] [id number] [address] [place] [address], [place] [address] Aug, [facility] [address] [id number] [address] [place] [address], [place] [id number] Aug, [facility] [address] [id number] [address] [place] [address], [place] [id number] Aug, [facility] [address] [id number] [address] [place] [address], [place] [address] Aug, [facility] [address] [id number] [address] [place] [address], [place] [address] Aug, [facility] [address] [id number] [address] [place] [address], [place] [id number] Aug, [facility] [address] [id number] [address] [place] [address], [place] [address] 14 Aug, 2013 [facility] [address] [id number] [address] [place] [address], [place] [id number] 14 Aug, 2013 [facility] [address] [id number] [address] [place] [address], [place] [id number] 14 Aug, 2013 [facility] [address] [id number] [address] [place] [address], [place] [id number] 14 Aug, 2013 [facility] [address] [id number] [address] [place] [address], [place] [id number] 07 Aug, 2013 [facility] [address] [id number] [address] [place] [address], [place] [id number] 07 Aug, 2013 [facility] [address] [id number] [address] [place] [address], [place] [id number] 06 Aug, 2013 [facility] [address] [id number] [address] [place] [address], [place] [address] 06 Aug, 2013 [facility] [address] [id number] [address] [place] [address], [place] [id number] 04 Aug, 2013 [facility] [address] [id number] [address] [place] [address], [place] [id number] 04 Aug, 2013 [facility] [address] [id number] [address] [place] [address], [place] [address] Aug, [facility] [address] [id number] [address] [place] [address], [place] [id number] Jul, [facility] [address] [id number] [address] [place] [address], [place] [address] Jul, [facility] [address] [id number] [address] [place] [address], [place] [id number] Jul, [facility] [address] [id number] [address] [place] [address], [place] [address] Jul, [facility] [address] [id number] [address] [place] [address], [place] [id number] Jul, [facility] [address] [id number] [address] [place] [address], [place] [id number] Jul, [facility] [address] [id number] [address] [place] [address], [place] [id number] Jul, [facility] [address] [id number] [address] [place] [address], [place] [id number] Jul, [facility] [address] [id number] [address] [place] [address], [place] [id number] Jul, [facility] [address] [id number] [address] [place] [address], [place] [address] Jul, [facility] [address] [id number] [address] [place] [address], [place] [id number] Jul, [facility] [address] [id number] [address] [place] [address], [place] [address] Jul, [facility] [address] [id number] [address] [place] [address], [place] [address] Jul, [facility] [address] [id number] [address] [place] [address], [place] [address] Jul, [facility] [address] [id number] [address] [place] [address], [place] [address] Jul, [facility] [address] [id number] [address] [place] [address], [place] [address] Jul, [facility] [address] [id number] [address] [place] [address], [place] [address] Jul, [facility] [address] [id number] [address] [place] [address], [place] [id number] Jul, [facility] [address] [id number] [address] [place] [address], [place] [address] Jul, [facility] [address] [id number] [address] [place] [address], [place] [address] Jul, [facility] [address] [id number] [address] [place] [address], [place] [address] 31 Jun, 2013 [facility] [address] [id number] [address] [place] [address], [place] [address] 31 Jun, 2013 [facility] [address] [id number] [address] [place] [address], [place] [address] Jun, [facility] [address] [id number] [address] [place] [address], [place] [address] Jun, [facility] [address] [id number] [address] [place] [address], [place] [address] Jun, [facility] [address] [id number] [address] [place] [address], [place] [id number] Jun, [facility] [address] [id number] [address] [place] [address], [place] [address] Jun, [facility] [address] [id number] [address] [place] [address], [place] [address] Jun, [facility] [address] [id number] [address] [place] [address], [place] [address] Jun, [facility] [address] [id number] [address] [place] [address], [place] [address] Jun, [facility] [address] [id number] [address] [place] [address], [place] [address] Jun, [facility] [address] [id number] [address] [place] [address], [place] [address] Jun, [facility] [address] [id number] [address] [place] [address], [place] [address] Jun, [facility] [address] [id number] [address] [place] [address], [place] [address] Jun, [facility] [address] [id number] [address] [place] [address], [place] [address] Jun, [facility] [address] [id number] [address] [place] [address], [place] [address] 18 Jun, 2013 [facility] [address] [id number] [address] [place] [address], [place] [id number] 18 Jun, 2013 [facility] [address] [id number] [address] [place] [address], [place] [address] 17 Jun, 2013 [facility] [address] [id number] [address] [place] [address], [place] [address] 17 Jun, 2013 [facility] [address] [id number] [address] [place] [address], [place] [address] 13 Jun, 2013 [facility] [address] [id number] [address] [place] [address], [place] [address] 12 Jun, 2013 [facility] [address] [id number] [address] [place] [address], [place] [address] 12 Jun, 2013 [facility] [address] [id number] [address] [place] [address], [place] [address] 09 Jun, 2013 [facility] [address] [id number] [address] [place] [address], [place] [address] 05 Jun, 2013 [facility] [address] [id number] [address] [place] [address], [place] [address] 05 Jun, 2013 [facility] [address] [id number] [address] [place] [address], [place] [address] 04 Jun, 2013 [facility] [address] [id number] [address] [place] [address], [place] [address] 04 Jun, 2013 [facility] [address] [id number] [address] [place] [address], [place] [address] May, [facility] [address] [id number] [address] [place] [address], [place] [id number] 17 May, 2013 [facility] [address] [id number] [address] [place] [address], [place] [address] May, [facility] [address] [id number] [address] [place] [address], [place] [address] May, [facility] [address] [id number] [address] [place] [address] [address] May, [facility] [address] [id number] [address] [place] [address], [place] [address] May, [facility] [address] [id number] [address] [place] [address], [place] [id number] Apr, [facility] [address] [id number] [address] [place] [address], [place] [address] Apr, [facility] [address] [id number] [address] [place] [address], [place] [address] Apr, [facility] [address] [id number] [address] [place] [address], [place] [id number] Apr, [facility] [address] [id number] [address] [place] [address], [place] [address] Apr, [facility] [address] [id number] [address] [place] [address], [place] [address] Apr, [facility] [address] [id number] [address] [place] [address], [place] [address] 15 Apr, 2013 [facility] [address] [id number] [address] [place] [address], [place] [address] Apr, [facility] [address] [id number] [address] [place] [id number] 26 Mar, 2013 [facility] [address] [id number] [address] [place] [id number] 24 Sep, 2012 [facility] [address] [id number] [address] [place] [id number] 17 Sep, 2012 [facility] [address] [id number] [address] [place] [address], [place] [address] 17 Sep, 2012 [facility] [address] [id number] [address] [place] [id number] 11 Sep, 2012 [facility] [address] [id number] [address] [place] [address], [place] [address] 10 Mar, 2012 [facility] [address] [id number] [address] [place] [address], [place] [address] 05 Mar, 2013 [facility] [address] [id number] [address] [place] [address], [place] [id number] 04 Mar, 2013 [facility] [address] [id number] [address] [place] [address], [place] [address] Jan, [facility] [address] [id number] [address] [place] [address], [place] [address] Jan, [facility] [address] [id number] [address] [place] [address], [place] [address] Jan, [facility] [address] [id number] [address] [place] [address], [place] [id number] Jan, [facility] [address] [id number] [address] [place] [address], [place] [address] Jan, [facility] [address] [id number] [address] [place] [address], [place] [address] Jan, [facility] [address] [id number] [address] [place] [address], [place] [address] Dec, [facility] [address] [id number] [address] [place] [address], [place] [id number] 24 Dec, 2012 [facility] [address] [id number] [address] [place] [address], [place] [address] Dec, [facility] [address] [id number] [address] [place] [address], [place] [id number] Dec, [facility] [address] [id number] [address] [place] [address], [place] [id number] 18 Dec, 2012 [facility] [address] [id number] [address] [place] [address], [place] [id number] 17 Dec, 2012 [facility] [address] [id number] [address] [place] [address], [place] [address] 16 Dec, 2012 [facility] [address] [id number] [address] [place] [address], [place] [address] 16 Dec, 2012 [facility] [address] [id number] [address] [place] [address], [place] [address] 15 Dec, 2012 [facility] [address] [id number] [address] [place] [address], [place] [address] Dec, [facility] [address] [id number] [address] [place] [address], [place] [address] Dec, [facility] [address] [id number] [address] [place] [address], [place] [address] Dec, [facility] [address] [id number] [address] [place] [address], [place] [address] Dec, [facility] [address] [id number] [address] [place] [address], [place] [address] Dec, [facility] [address] [id number] [address] [place] [address], [place] [id number] Dec, [facility] [address] [id number] [address] [place] [address], [place] [address] Dec, [facility] [address] [id number] [address] [place] [address], [place] [id number] October, [facility] [address] [id number] [address] [place] [address], [place] [address] October, [facility] [address] [id number] [address] [place] [address], [place] [id number] October, [facility] [address] [id number] [address] [place] [address], [place] [id number] October, [facility] [address] [id number] [address] [place] [address], [place] [id number] October, [facility] [address] [id number] [address] [place] [address], [place] [id number] October, [facility] [address] [id number] [address] [place] [address], [place] [id number] October, [facility] [address] [id number] [address] [place] [address], [place] [id number] 29 Oct, 2012 [facility] [address] [id number] [address] [place] [address], [place] [id number] Oct, [facility] [address] [id number] [address] [place] [address], [place] [id number] 24 Oct, 2012 [facility] [address] [id number] [address] [place] [address], [place] [id number] Oct, [facility] [address] [id number] [address] [place] [address], [place] [id number] Oct, [facility] [address] [id number] [address] [place] [address], [place] [id number] 18 Oct, 2012 [facility] [address] [id number] [address] [place] [address], [place] [id number] 17 Oct, 2012 [facility] [address] [id number] [address] [place] [address], [place] [id number] 15 Oct, 2012 [facility] [address] [id number] [address] [place] [address], [place] [id number] Oct, [facility] [address] [id number] [address] [place] [address], [place] [id number] Oct, [facility] [address] [id number] [address] [place] [address], [place] [id number] Oct, [facility] [address] [id number] [address] [place] [address], [place] [id number] Oct, [facility] [address] [id number] [address] [place] [address], [place] [id number] Aug, [facility] [address] [id number] [address] [place] [address], [place] [id number] Aug, [facility] [address] [id number] [address] [place] [address], [place] [id number] Aug, [facility] [address] [id number] [address] [place] [address], [place] [id number] Aug, [facility] [address] [id number] [address] [place] [address], [place] [id number] 05 Aug, 2012 [facility] [address] [id number] [address] [place] [address], [place] [id number] 05 Aug, 2012 [facility] [address] [id number] [address] [place] [address], [place] [id number] 20 Aug, 2012 [facility] [address] [id number] [address] [place] [address], [place] [id number] 14 Aug, 2012 [facility] [address] [id number] [address] [place] [address], [place] [id number] 12 Aug, 2012 [facility] [address] [id number] [address] [place] [address], [place] [id number] 11 Aug, 2012 [facility] [address] [id number] [address] [place] [address], [place] [id number] 29 Jul, 2012 [facility] [address] [id number] [address] [place] [address], [place] [id number] 15 Jul, 2012 [facility] [address] [id number] [address] [place] [address], [place] [id number] 08 Jul, 2012 [facility] [address] [id number] [address] [place] [address], [place] [id number] 20 Jun, 2012 [facility] [address] [id number] [address] [place] [address], [place] [id number] 18 Jun, 2012 [facility] [address] [id number] [address] [place] [address], [place] [id number] 18 Jun, 2012 [facility] [address] [id number] [address] [place] [address], [place] [id number] 18 Jun, 2012 [facility] [address] [id number] [address] [place] [address], [place] [id number] 18 Jun, 2012 [facility] [address] [id number] [address] [place] [address], [place] [id number] 14 Jun, 2012 [facility] [address] [id number] [address] [place] [address] [id number] 14 Jun, 2012 [facility] [address] [id number] [address] [place] [address], [place] [id number] 13 Jun, 2012 [facility] [address] [id number] [address] [place] [address], [place] [id number] 13 Jun, 2012 [facility] [address] [id number] [address] [place] [address], [place] [id number] 11 Jun, 2012 [facility] [address] [id number] [address] [place] [address], [place] [id number] 11 Jun, 2012 [facility] [address] [id number] [address] [place] [address], [place] [id number] Jun, [facility] [address] [id number] [address] [place] [address], [place] [id number] Jun, [facility] [address] [id number] [address] [place] [address], [place] [id number] 07 Jun, 2012 [facility] [address] [id number] [address] [place] [address], [place] [id number] 07 Jun, 2012 [facility] [address] [id number] [address] [place] [address], [place] [id number] Jun, [facility] [address] [id number] [address] [place] [address], [place] [id number] 06 Jun, 2012 [facility] [address] [id number] [address] [place] [address], [place] [address] Jun, [facility] [address] [id number] [address] [place] [address], [place] [id number] Jun, [facility] [address] [id number] [address] [place] [address], [place] [id number] Jun, [facility] [address] [id number] [address] [place] [address], [place] [id number] 05 Jun, 2012 [facility] [address] [id number] [address] [place] [address], [place] [address] Jun, [facility] [address] [id number] [address] [place] [address], [place] [id number] Jun, [facility] [address] [id number] [address] [place] [address], [place] [address] May, [facility] [address] [id number] [address] [place] [address], [place] [id number] May, [facility] [address] [id number] [address] [place] [address], [place] [address] May, [facility] [address] [id number] [address] [place] [address], [place] [id number] May, [facility] [address] [id number] [address] [place] [address], [place] [id number] May, [facility] [address] [id number] [address] [place] [address], [place] [address] May, [facility] [address] [id number] [address] [place] [address], [place] [address] May, [facility] [address] [id number] [address] [place] [address], [place] [id number] May, [facility] [address] [id number] [address] [place] [address], [place] [address] Apr, [facility] [address] [id number] [address] [place] [address], [place] [id number] Apr, [facility] [address] [id number] [address] [place] [address], [place] [id number] 29 Apr, 2012 [facility] [address] [id number] [address] [place] [id number] Apr, [facility] [address] [id number] [address] [place] [address], [place] [id number] Apr, [facility] [address] [id number] [address] [place] [address], [place] [id number] Apr, [facility] [address] [id number] [address] [place] [id number] Apr, [facility] [address] [id number] [address] [place] [address], [place] [id number] Apr, [facility] [address] [id number] [address] [place] [address], [place] [address] Apr, [facility] [address] [id number] [address] [place] [address], [place] [id number] Apr, [facility] [address] [id number] [address] [place] [address], [place] [id number] Apr, [facility] [address] [id number] [address] [place] [address], [place] [id number] Apr, [facility] [address] [id number] [address] [place] [address], [place] [id number] Mar, [facility] [address] [id number] [address] [place] [address], [place] [id number] 18 Mar, 2012 [facility] [address] [id number] [address] [place] [id number] Mar, [facility] [address] [id number] [address] [place] [address], [place] [id number] Mar, [facility] [address] [id number] [address] [place] [address] [id number] Mar, [facility] [address] [place] [address] [id number] [address] [place] [address] [id number] Mar, [facility] [address] [id number] [address] [place] [phone] Mar, [facility] [address] [id number] [address] [place] [phone] Jan, [facility] [address] [id number] [address] [place] [phone] Jan, [facility] [address] [id number] [address] [place] [id number] Jan, [facility] [address] [id number] [address] [place] [id number] Jan, [facility] [address] [id number] [address] [place] [address], [place] [id number] Jan, [facility] [address] [id number] [address] [place] [address], [place] [id number] Jan, [facility] [address] [id number] [address] [place] [address], [place] [id number] Jan, [facility] [address] [id number] [address] [place] [address], [place] [id number] Jan, [facility] [address] [id number] [address] [place] [address], [place] [id number] Jan, [facility] [address] [id number] [address] [place] [address], [place] [id number] Jan, [facility] [address] [id number] [address] [place] [address], [place] [id number] Jan, [facility] [address] [id number] [address] [place] [address], [place] [id number] Dec, [facility] [address] [id number] [address] [place] [address], [place] [id number] Dec, [facility] [address] [id number] [address] [place] [address], [place] [address] Dec, [facility] [address] [id number] [address] [place] [address], [place] [address] Dec, [facility] [address] [id number] [address] [place] [address], [place] [id number] Dec, [facility] [address] [id number] [address] [place] [address], [place] [id number] Dec, [facility] [address] [id number] [address] [place] [address], [place] [id number] Dec, [facility] [address] [id number] [address] [place] [address], [place] [id number] Dec, [facility] [address] [id number] [address] [place] [address], [place] [id number] 16 Jan, 2012 [facility] [address] [id number] [address] [place] [address], [place] [id number] 13 Jan, 2012 [facility] [address] [id number] [address] [place] [address], [place] [id number] 13 Jan, 2012 [facility] [address] [id number] [address] [place] [address], [place] [id number] Dec, [facility] [address] [id number] [address] [place] [address], [place] [id number] Dec, [facility] [address] [id number] [address] [place] [address], [place] [id number] Dec, [facility] [address] [id number] [address] [place] [address], [place] [id number] Dec, [facility] [address] [id number] [address] [place] [address], [place] [id number] Dec, [facility] [address] [id number] [address] [place] [address], [place] [address] Dec, [facility] [address] [id number] [address] [place] [address], [place] [id number] Dec, [facility] [address] [id number] [address] [place] [address], [place] [id number] Dec, [facility] [address] [id number] [address] [place] [address], [place] [address] October, [facility] [address] [id number] [address] [place] [address], [place] [address] October, [facility] [address] [id number] [address] [place] [address], [place] [address] October, [facility] [address] [id number] [address] [place] [address], [place] [address] October, [facility] [address] [id number] [address] [place] [address], [place] [address] October, [facility] [address] [id number] [address] [place] [address], [place] [address] October, [facility] [address] [id number] [address] [place] [address], [place] [id number] Oct, [facility] [address] [id number] [address] [place] [address], [place] [id number] Oct, [facility] [address] [id number] [address] [place] [address], [place] [address] Oct, [facility] [address] [id number] [address] [place] [address], [place] [address] Oct, [facility] [address] [id number] [address] [place] [address], [place] [address] Oct, [facility] [address] [id number] [address] [place] [address], [place] [id number] Oct, [facility] [address] [id number] [address] [place] [address], [place] [address] Oct, [facility] [address] [id number] [address] [place] [address], [place] [address] Aug, [facility] [address] [id number] [address] [place] [address], [place] [id number] Aug, [facility] [address] [id number] [address] [place] [address], [place] [address] Aug, [facility] [address] [id number] [address] [place] [address], [place] [id number] Aug, [facility] [address] [id number] [address] [place] [address], [place] [address] Aug, [facility] [address] [id number] [address] [place] [address], [place] [address] Aug, [facility] [address] [id number] [address] [place] [address], [place] [id number] Aug, [facility] [address] [id number] [address] [place] [address], [place] [address] Aug, [facility] [address] [id number] [address] [place] [address], [place] [id number] Aug, [facility] [address] [id number] [address] [place] [address], [place] [address] Jul, [facility] [address] [id number] [address] [place] [address], [place] [address] Jul, [facility] [address] [id number] [address] [place] [address], [place] [address] Jul, [facility] [address] [id number] [address] [place] [address], [place] [address] Jul, [facility] [address] [id number] [address] [place] [address], [place] [address] Jun, [facility] [address] [id number] [address] [place] [address], [place] [address] Jun, [facility] [address] [id number] [address] [place] [address], [place] [address] May, [facility] [address] [id number] [address] [place] [address], [place] [address] May, [facility] [address] [id number] [address] [place] [address], [place] [address] May, [facility] [address] [id number] [address] [place] [address], [place] [address] May, [facility] [address] [id number] [address] [place] [address], [place] [address] May, [facility] [address] [id number] [address] [place] [address], [place] [id number] 28 Apr, 2011 [facility] [address] [id number] [address] [place] [address], [place] [id number] 28 Apr, 2011 [facility] [address] [id number] [address] [place] [address], [place] [id number] 10 Apr, 2011 [facility] [address] [id number] [address] [place] [id number] Jan, [facility] [address] [id number] [address] [place] [phone] Dec, [facility] [address] [id number] [address] [place] [phone] October, [facility] [address] [facility] [id number] [address] [place] [id number] Jun, [facility] [address] [id number] [address] [place] [id number] Apr, [facility] [address] [facility] [id number] [address] [place] [phone] Apr, [facility] [address] [facility] [id number] [address] [place] [phone] Apr, [facility] [address] [facility] [id number] [address] [place] [id number] Jun, IMMUNIZATIONS No Known Immunizations SOCIAL HISTORY [...]
--- OUTSIDE RECORDS SUMMARY | 2020-01-25 13:21 | XMS REPORT ---
Author Author Ana Brannon [facility] Address [address] [place] [address] Care Team Providers Care Tour Sales Representative Name Role Phone Clovis ANEUDY Unavailable PROBLEMS Type Condition ICD9-CM Code [id number] Code Onset Dates Condition S tatus SNOMED Code Problem Chronic hepatitis C without hepatic coma B18.2 Active 420929217 Problem Cannabis abuse F12.10 Active 28730 009 Problem Bipolar 1 disorder F31.9 Active 3 35417963 Problem Attention deficit hyperactivity disorder (ADHD), combi luciano type F90.2 Active 80254393 Problem Attention deficit R41.840 Active 76 971902 Problem Hot flashes due to menopause N95.1 A ctive 880355883 Problem H/O laminectomy Z98.89 Active 1616 68902 Problem Other chronic pain G89.29 Active 8 8635862 Problem Anxiety disorder, unspecified type F41.9 Active 005562645 Problem Bipolar disorder, in partial remission, most rec ent episode hypomanic F31.71 Active [id number] ALLERGIES No Information ENCOUNTERS Encounter Location Date Diagnosis [facility] [address] [id number] [address] [place] [id number] Oct, [facility] [address] [facility] [id number] [address] [place] [phone] Oct, [facility] [address] [facility] [id number] [address] [place] [phone] Aug, [facility] [address] [facility] [id number] [address] [place] [phone] Jul, [facility] [address] [facility] [id number] [address] [place] [phone] Jul, [facility] [address] [facility] [id number] [address] [place] [phone] Apr, [facility] [address] [id number] [address] [place] [id number] Mar, Hot flashes due to menopause N95.1 ; Anxiety disorder, unspecified type F41.9 ; Low back pain M54.5 and Encounter for immunization Z23 [facility] [address] [id number] [address] [place] [phone] Dec, Other chronic pain G89.29 an d Low back pain M54.5 [facility] [address] [id number] [address] [place] [phone] October, [facility] [address] [id number] [address] [place] [phone] October, [facility] [address] [id number] [address] [place] [phone] October, [facility] [address] [facility] [id number] [address] [place] [address] October, Other chronic pain G89.29 an d Chronic hepatitis C without hepatic coma B18.2 [facility] [address] [id number] [address] [place] [address] Aug, Bipolar disorder, in partial remission, most recent episode hypomanic F31.71 ; Attention deficit hyperactivity disorder (ADHD), combined type F90.2 and Anxiety disorder, unspecified type F41.9 [facility] [address] [id number] [address] [place] [phone] Aug, [facility] [address] [id number] [address] [place] [address] Aug, Bipolar disorder, in partial remission, most recent episode hypomanic F31.71 [facility] [address] [facility] [id number] [address] [place] [phone] Aug, [facility] [address] [facility] [id number] [address] [place] [phone] Aug, Bipolar disorder, in partial remission, most recent episode hypomanic F31.71 [facility] [address] [id number] [address] [place] [address] Aug, Bipolar disorder, in partial remission, most recent episode hypomanic F31.71 ; Attention deficit hyperactivity disorder (ADHD), combined type F90.2 and Anxiety disorder, unspecified type F41.9 [facility] [address] [id number] [address] [place] [phone] Aug, Low back pain M54.5 and Pain in left wrist M25.532 [facility] [address] [id number] [address] [place] [address] Aug, [facility] [address] [id number] [address] [place] [phone] Jun, [facility] [address] [id number] [address] [place] [address] Apr, Bipolar disorder, in partial remission, most recent episode hypomanic F31.71 [facility] [address] [id number] [address] [place] [phone] Apr, [facility] [address] [id number] [address] [place] [address] Apr, Bipolar disorder, in partial remission, most recent episode hypomanic F31.71 ; Attention deficit hyperactivity disorder (ADHD), combined type F90.2 ; Anxiety disorder, unspecified type F41.9 and [facility] [place] [facility] [place] [place] therapy Z79.899 [facility] [address] [id number] [address] [place] [address] Apr, Bipolar disorder, in partial remission, most recent episode hypomanic F31.71 [facility] [address] [id number] [address] [place] [address] Apr, Bipolar disorder, in partial remission, most recent episode hypomanic F31.71 [facility] [address] [id number] [address] [place] [address] Mar, [facility] [address] [id number] [address] [place] [address] Mar, Bipolar disorder, in partial remission, most recent episode hypomanic F31.71 ; Encounter for immunization Z23 and Low back pain M54.5 [facility] [address] [id number] [address] [place] [phone] 17 Mar, 2018 Bipolar disorder, in partial remission, most recent episode hypomanic F31.71 [facility] [address] [id number] [address] [place] [phone] Mar, Bipolar disorder, in partial remission, most recent episode hypomanic F31.71 [facility] [address] [id number] [address] [place] [address] Jan, Bipolar disorder, in partial remission, most recent episode hypomanic F31.71 [facility] [address] [id number] [address] [place] [phone] Jan, Bipolar disorder, in partial remission, most recent episode hypomanic F31.71 [facility] [address] [id number] [address] [place] [address] Dec, Bipolar disorder, in partial remission, most recent episode hypomanic F31.71 [facility] [address] [facility] [id number] [address] [place] [id number] Dec, Bipolar disorder, in partial remission, most recent episode hypomanic F31.71 ; Attention deficit hyperactivity disorder (ADHD), combined type F90.2 ; Anxiety disorder, unspecified type F41.9 and [place] [facility] [place] drug therapy Z79.899 [facility] [address] [id number] [address] [place] [id number] Dec, Bipolar disorder, in partial remission, most recent episode hypomanic F31.71 [facility] [address] [facility] [id number] [address] [place] [address] Dec, Bipolar disorder, in partial remission, most recent episode hypomanic F31.71 [facility] [address] [facility] [id number] [address] [place] [phone] October, Bipolar disorder, in partial remission, most recent episode hypomanic F31.71 [facility] [address] [id number] [address] [place] [phone] October, [facility] [address] [id number] [address] [place] [address] October, [facility] [address] [id number] [address] [place] [phone] Oct, Bipolar disorder, in partial remission, most recent episode hypomanic F31.71 ; Attention deficit hyperactivity disorder (ADHD), combined type F90.2 ; Anxiety disorder, unspecified type F41.9 and Encounter for drug screening Z02.83 [facility] [address] [id number] [address] [place] [phone] Oct, Bipolar disorder, in partial remission, most recent episode hypomanic F31.71 [facility] [address] [id number] [address] [place] [address] Oct, Bipolar disorder, in partial remission, most recent episode hypomanic F31.71 [facility] [address] [facility] [id number] [address] [place] [id number] Aug, Bipolar disorder, in partial remission, most recent episode hypomanic F31.71 [facility] [address] [facility] [id number] [address] [place] [phone] Aug, Bipolar disorder, in partial remission, most recent episode hypomanic F31.71 [facility] [address] [id number] [address] [place] [id number] Aug, Bipolar disorder, in partial remission, most recent episode hypomanic F31.71 [facility] [address] [facility] [id number] [address] [place] [phone] Jul, Bipolar disorder, in partial remission, most recent episode hypomanic F31.71 ; Attention deficit hyperactivity disorder (ADHD), combined type F90.2 and Anxiety disorder, unspecified type F41.9 [facility] [address] [id number] [address] [place] [id number] Jul, Bipolar disorder, in partial remission, most recent episode hypomanic F31.71 [facility] [address] [id number] [address] [place] [phone] Jun, Bipolar disorder, in partial remission, most recent episode hypomanic F31.71 [facility] [address] [id number] [address] [place] [phone] May, Bipolar disorder, in partial remission, most recent episode hypomanic F31.71 [facility] [address] [id number] [address] [place] [phone] May, Bipolar disorder, in partial remission, most recent episode hypomanic F31.71 [facility] [address] [facility] [id number] [address] [place] [phone] Apr, [facility] [address] [facility] [id number] [address] [place] [id number] Apr, Bipolar disorder, in partial remission, most recent episode hypomanic F31.71 ; Attention deficit hyperactivity disorder (ADHD), combined type F90.2 ; Anxiety disorder, unspecified type F41.9 and Cannabis abuse F12.10 [facility] [address] [facility] [id number] [address] [place] [id number] Apr, Attention deficit hyperactiv ity disorder (ADHD), combined type F90.2 [facility] [address] [id number] [address] [place] [id number] Mar, Attention deficit hyperactiv ity disorder (ADHD), combined type F90.2 [facility] [address] [id number] [address] [place] [phone] 14 Mar, 2017 Anxiety disorder, unspecifie d type F41.9 [facility] [address] [facility] [id number] [address] [place] [phone] Jan, Attention deficit hyperactiv ity disorder (ADHD), combined type F90.2 [facility] [address] [place] [id number] [address] [place] [phone] Jan, Anxiety disorder, unspecifie d type F41.9 [facility] [address] [place] [id number] [address] [place] [phone] Jan, Other chronic pain G89.29 ; Chronic hepatitis C without hepatic coma B18.2 and Bipolar 1 disorder F31.9 [facility] [address] [place] [id number] [address] [place] [phone] Dec, Attention deficit hyperactiv ity disorder (ADHD), combined type F90.2 [facility] [address] [place] [id number] [address] [place] [id number] Dec, Bipolar disorder, in partial remission, most recent episode hypomanic F31.71 ; Attention deficit hyperactivity disorder (ADHD), combined type F90.2 and Anxiety disorder, unspecified type F41.9 [place] [address] [place] [id number] [place] [address] Dec, Bipolar disorder, in partial remission, most recent episode hypomanic F31.71 ; Attention deficit hyperactivity disorder (ADHD), combined type F90.2 and Anxiety disorder, unspecified type F41.9 [place] [address] [place] [id number] [place] [phone] Dec, Bipolar 1 disorder F31.9 and Attention deficit R41.840 [place] [address] [place] [id number] [address] [place] [phone] Oct, Other chronic pain G89.29 ; Alopecia L65.9 and Screening, lipid Z13.220 [facility] [address] [place] [id number] [address] [place] [id number] Oct, [place] [address] [place] [id number] [place] [address] Aug, [place] [address] [place] [id number] [place] [phone] Aug, Eustachian tube dysfunction, right H69.81 ; Vertigo R42 and Other chronic pain G89.29 [facility] [address] [id number] [address] [place] [phone] Aug, [facility] [address] [id number] [address] [place] [id number] Jun, [facility] [address] [id number] [address] [place] [phone] Jun, Low back pain M54.5 and Othe r chronic pain G89.29 [facility] [address] [id number] [address] [place] [phone] Jun, [facility] [address] [id number] [address] [place] [phone] May, [facility] [address] [id number] [address] [place] [phone] Jan, [facility] [address] [id number] [address] [place] [phone] Dec, [facility] [address] [id number] [address] [place] [phone] Dec, [facility] [address] [id number] [address] [place] [phone] Jun, [facility] [address] [facility] [id number] [address] [place] [id number] Apr, Eustachian tube dysfunction, unspecified laterality H69.80 ; Hot flashes N95.1 and Encounter for immunization Z23 [facility] [address] [id number] [address] [place] [phone] Jan, [facility] [address] [id number] [address] [place] [phone] Jan, [facility] [address] [id number] [address] [place] [phone] Jan, [facility] [address] [id number] [address] [place] [phone] Jan, [facility] [address] [id number] [address] [place] [phone] Jan, Encounter to establish care V65.8 ; Bipolar 1 disorder 296.7 ; Abdominal pain 789.00 ; Constipation 564.00 ; Hard of hearing 389.9 and Drug abuse 305.90 [facility] [address] [id number] [address] [place] [phone] Dec, [facility] [address] [id number] [address] [place] [phone] October, [facility] [address] [id number] [address] [place] [phone] October, [facility] [address] [id number] [address] [place] [phone] Oct, [facility] [address] [id number] [address] [place] [phone] Oct, [facility] [address] [id number] [address] [place] [phone] Oct, [facility] [address] [id number] [address] [place] [phone] Aug, [facility] [address] [id number] [address] [place] [phone] Aug, [facility] [address] [id number] [address] [place] [phone] Aug, [facility] [address] [id number] [address] [place] [phone] Aug, [facility] [address] [id number] [address] [place] [phone] Aug, [facility] [address] [id number] [address] [place] [phone] Aug, [facility] [address] [id number] [address] [place] [phone] Aug, [facility] [address] [id number] [address] [place] [address], [place] [address] Aug, 2014 [facility] [address] [id number] [address] [place] [address], [place] [address] Aug, 2014 [facility] [address] [id number] [address] [place] [address], [place] [address] Aug, 2014 [facility] [address] [id number] [address] [place] [address], [place] [address] Aug, 2014 [facility] [address] [id number] [address] [place] [address], [place] [address] Aug, 2014 [facility] [address] [id number] [address] [place] [address], [place] [address] Aug, 2014 [facility] [address] [id number] [address] [place] [address], [place] [address] Aug, 2014 [facility] [address] [id number] [address] [place] [address], [place] [address] Aug, [facility] [address] [id number] [address] [place] [address], [place] [address] Jul, [facility] [address] [id number] [address] [place] [address], [place] [address] Jul, [facility] [address] [id number] [address] [place] [address], [place] [address] Jul, [facility] [address] [id number] [address] [place] [address], [place] [address] Jul, [facility] [address] [id number] [address] [place] [address], [place] [address] Jul, [facility] [address] [id number] [address] [place] [address], [place] [address] Jul, [facility] [address] [id number] [address] [place] [address], [place] [address] Jul, [facility] [address] [id number] [address] [place] [address], [place] [address] Jul, [facility] [address] [id number] [address] [place] [address], [place] [address] Jun, [facility] [address] [id number] [address] [place] [address], [place] [address] Jun, [facility] [address] [id number] [address] [place] [address], [place] [address] Jun, [facility] [address] [id number] [address] [place] [address], [place] [address] Jun, [facility] [address] [id number] [address] [place] [address], [place] [address] Jun, [facility] [address] [id number] [address] [place] [address], [place] [address] Jun, [facility] [address] [id number] [address] [place] [address], [place] [address] Jun, [facility] [address] [id number] [address] [place] [address], [place] [address] Jun, [facility] [address] [id number] [address] [place] [address], [place] [address] Jun, [facility] [address] [id number] [address] [place] [address], [place] [address] Jun, [facility] [address] [id number] [address] [place] [address], [place] [address] Jun, [facility] [address] [id number] [address] [place] [address], [place] [address] May, [facility] [address] [id number] [address] [place] [address], [place] [address] May, [facility] [address] [id number] [address] [place] [address], [place] [address] May, [facility] [address] [id number] [address] [place] [address], [place] [address] May, [facility] [address] [id number] [address] [place] [address], [place] [address] May, [facility] [address] [id number] [address] [place] [address], [place] [address] May, [facility] [address] [id number] [address] [place] [address], [place] [address] May, [facility] [address] [id number] [address] [place] [address], [place] [address] Apr, [facility] [address] [id number] [address] [place] [address], [place] [address] Apr, [facility] [address] [id number] [address] [place] [address], [place] [address] Apr, [facility] [address] [id number] [address] [place] [address], [place] [address] Apr, [facility] [address] [id number] [address] [place] [address], [place] [address] Apr, [facility] [address] [id number] [address] [place] [address], [place] [address] Apr, [facility] [address] [id number] [address] [place] [address], [place] [address] Mar, [facility] [address] [id number] [address] [place] [address], [place] [address] 29 Mar, 2014 [facility] [address] [id number] [address] [place] [address], [place] [address] Mar, [facility] [address] [id number] [address] [place] [address], [place] [address] Mar, [facility] [address] [id number] [address] [place] [address], [place] [address] Mar, [facility] [address] [id number] [address] [place] [address], [place] [address] Mar, [facility] [address] [id number] [address] [place] [address], [place] [address] Jan, [facility] [address] [id number] [address] [place] [address], [place] [address] Jan, [facility] [address] [id number] [address] [place] [address], [place] [address] Jan, [facility] [address] [id number] [address] [place] [address], [place] [address] Jan, [facility] [address] [id number] [address] [place] [address], [place] [address] Dec, [facility] [address] [id number] [address] [place] [address], [place] [address] Dec, [facility] [address] [id number] [address] [place] [address], [place] [address] Dec, [facility] [address] [id number] [address] [place] [address], [place] [address] Dec, [facility] [address] [id number] [address] [place] [address], [place] [address] Dec, [facility] [address] [id number] [address] [place] [address], [place] [address] Dec, [facility] [address] [id number] [address] [place] [address], [place] [address] Dec, [facility] [address] [id number] [address] [place] [address], [place] [address] Dec, [facility] [address] [id number] [address] [place] [address], [place] [address] Dec, [facility] [address] [id number] [address] [place] [address], [place] [address] Dec, [facility] [address] [id number] [address] [place] [address], [place] [address] Dec, [facility] [address] [id number] [address] [place] [address], [place] [address] Dec, [facility] [address] [id number] [address] [place] [address], [place] [address] October, [facility] [address] [id number] [address] [place] [address], [place] [address] October, [facility] [address] [id number] [address] [place] [address], [place] [address] October, [facility] [address] [id number] [address] [place] [address], [place] [address] October, [facility] [address] [id number] [address] [place] [address], [place] [address] October, [facility] [address] [id number] [address] [place] [address], [place] [address] October, [facility] [address] [id number] [address] [place] [address], [place] [address] Oct, [facility] [address] [id number] [address] [place] [address], [place] [address] Oct, [facility] [address] [id number] [address] [place] [address], [place] [address] Oct, [facility] [address] [id number] [address] [place] [address], [place] [address] Oct, [facility] [address] [id number] [address] [place] [address], [place] [address] Oct, [facility] [address] [id number] [address] [place] [address], [place] [address] Oct, [facility] [address] [id number] [address] [place] [address], [place] [address] Oct, [facility] [address] [id number] [address] [place] [address], [place] [address] Oct, [facility] [address] [id number] [address] [place] [address], [place] [address] Oct, [facility] [address] [id number] [address] [place] [address], [place] [address] Oct, [facility] [address] [id number] [facility] [place] [address] 08 Oct, 2013 [facility] [address] [id number] [facility] [place] [address] 08 Oct, 2013 [facility] [address] [id number] [facility] [place] [address] 15 Aug, 2013 [facility] [address] [id number] [address] [place] [address], [place] [address] 15 Aug, 2013 [facility] [address] [id number] [address] [place] [address], [place] [address] Aug, [facility] [address] [id number] [address] [place] [address], [place] [address] Aug, [facility] [address] [id number] [address] [place] [address], [place] [address] Aug, [facility] [address] [id number] [address] [place] [address], [place] [address] Aug, [facility] [address] [id number] [address] [place] [address], [place] [address] Aug, [facility] [address] [id number] [address] [place] [address], [place] [address] Aug, [facility] [address] [id number] [address] [place] [address], [place] [address] Aug, [facility] [address] [id number] [address] [place] [address], [place] [address] Aug, [facility] [address] [id number] [address] [place] [address], [place] [address] Aug, [facility] [address] [id number] [address] [place] [address], [place] [address] Aug, [facility] [address] [id number] [address] [place] [address], [place] [address] Aug, [facility] [address] [id number] [address] [place] [address], [place] [address] 20 Aug, 2013 [facility] [address] [id number] [address] [place] [address], [place] [address] 14 Aug, 2013 [facility] [address] [id number] [address] [place] [address], [place] [address] 14 Aug, 2013 [facility] [address] [id number] [address] [place] [address], [place] [address] 14 Aug, 2013 [facility] [address] [id number] [address] [place] [address], [place] [address] 14 Aug, 2013 [facility] [address] [id number] [address] [place] [address], [place] [address] 07 Aug, 2013 [facility] [address] [id number] [address] [place] [address], [place] [address] 07 Aug, 2013 [facility] [address] [id number] [address] [place] [address], [place] [address] 06 Aug, 2013 [facility] [address] [id number] [address] [place] [address], [place] [address] 06 Aug, 2013 [facility] [address] [id number] [address] [place] [address], [place] [address] 04 Aug, 2013 [facility] [address] [id number] [address] [place] [address], [place] [address] 04 Aug, 2013 [facility] [address] [id number] [address] [place] [address], [place] [address] Aug, [facility] [address] [id number] [address] [place] [address], [place] [address] Jul, [facility] [address] [id number] [address] [place] [address], [place] [address] Jul, [facility] [address] [id number] [address] [place] [address], [place] [address] Jul, [facility] [address] [id number] [address] [place] [address], [place] [address] Jul, [facility] [address] [id number] [address] [place] [address], [place] [address] Jul, [facility] [address] [id number] [address] [place] [address], [place] [address] Jul, [facility] [address] [id number] [address] [place] [address], [place] [address] Jul, [facility] [address] [id number] [address] [place] [address], [place] [address] Jul, [facility] [address] [id number] [address] [place] [address], [place] [address] Jul, [facility] [address] [id number] [address] [place] [address], [place] [address] Jul, [facility] [address] [id number] [address] [place] [address], [place] [address] Jul, [facility] [address] [id number] [address] [place] [address], [place] [address] Jul, [facility] [address] [id number] [address] [place] [address], [place] [address] Jul, [facility] [address] [id number] [address] [place] [address], [place] [address] Jul, [facility] [address] [id number] [address] [place] [address], [place] [address] Jul, [facility] [address] [id number] [address] [place] [address], [place] [address] Jul, [facility] [address] [id number] [address] [place] [address], [place] [address] Jul, [facility] [address] [id number] [address] [place] [address], [place] [address] Jul, [facility] [address] [id number] [address] [place] [address], [place] [address] Jul, [facility] [address] [id number] [address] [place] [address], [place] [address] Jul, [facility] [address] [id number] [address] [place] [address], [place] [address] Jun, [facility] [address] [id number] [address] [place] [address], [place] [address] Jun, [facility] [address] [id number] [address] [place] [address], [place] [address] Jun, [facility] [address] [id number] [address] [place] [address], [place] [address] Jun, [facility] [address] [id number] [address] [place] [address], [place] [address] Jun, [facility] [address] [id number] [address] [place] [address], [place] [address] Jun, [facility] [address] [id number] [address] [place] [address], [place] [address] Jun, [facility] [address] [id number] [address] [place] [address], [place] [address] Jun, [facility] [address] [id number] [address] [place] [address], [place] [address] Jun, [facility] [address] [id number] [address] [place] [address], [place] [address] Jun, [facility] [address] [id number] [address] [place] [address], [place] [address] Jun, [facility] [address] [id number] [address] [place] [address], [place] [address] Jun, [facility] [address] [id number] [address] [place] [address], [place] [address] Jun, [facility] [address] [id number] [address] [place] [address], [place] [address] Jun, [facility] [address] [id number] [address] [place] [address], [place] [address] Jun, [facility] [address] [id number] [address] [place] [address], [place] [address] 18 Jun, 2013 [facility] [address] [id number] [address] [place] [address], [place] [address] 18 Jun, 2013 [facility] [address] [id number] [address] [place] [address], [place] [address] 17 Jun, 2013 [facility] [address] [id number] [address] [place] [address], [place] [address] 17 Jun, 2013 [facility] [address] [id number] [address] [place] [address], [place] [address] 13 Jun, 2013 [facility] [address] [id number] [address] [place] [address], [place] [address] Jun, [facility] [address] [id number] [address] [place] [address], [place] [address] Jun, [facility] [address] [id number] [address] [place] [address], [place] [address] Jun, [facility] [address] [id number] [address] [place] [address], [place] [address] 05 Jun, 2013 [facility] [address] [id number] [address] [place] [address], [place] [address] 05 Jun, 2013 [facility] [address] [id number] [address] [place] [address], [place] [address] 04 Jun, 2013 [facility] [address] [id number] [address] [place] [address], [place] [address] 04 Jun, 2013 [facility] [address] [id number] [address] [place] [address], [place] [address] 17 May, 2013 [facility] [address] [id number] [address] [place] [address], [place] [address] 17 May, 2013 [facility] [address] [id number] [address] [place] [address], [place] [address] May, [facility] [address] [id number] [address] [place] [address] [address] May, [facility] [address] [id number] [address] [place] [address], [place] [address] May, [facility] [address] [id number] [address] [place] [address], [place] [address] May, [facility] [address] [id number] [address] [place] [address], [place] [address] Apr, [facility] [address] [id number] [address] [place] [address], [place] [address] Apr, [facility] [address] [id number] [address] [place] [address], [place] [address] Apr, [facility] [address] [id number] [address] [place] [address], [place] [address] Apr, [facility] [address] [id number] [address] [place] [address], [place] [address] Apr, [facility] [address] [id number] [address] [place] [address], [place] [address] Apr, [facility] [address] [id number] [address] [place] [address], [place] [address] Apr, [facility] [address] [id number] [address] [place] [address] Apr, [facility] [address] [id number] [address] [place] [address] 26 Mar, 2012 [facility] [address] [id number] [address] [place] [address] 24 Sep, 2012 [facility] [address] [id number] [address] [place] [address], [place] [address] 17 Sep2012 [facility] [address] [id number] [address] [place] [address] 17 Sep, 2012 [facility] [address] [id number] [address] [place] [address], [place] [address] 11 Mar, 2013 [facility] [address] [id number] [facility] [place] [address] 10 Mar, 2013 [facility] [address] [id number] [address] [place] [address], [place] [address] 05 Mar, 2013 [facility] [address] [id number] [address] [place] [address], [place] [address] 04 Mar, 2013 [facility] [address] [id number] [address] [place] [address], [place] [address] 20 Jan, 2013 [facility] [address] [id number] [address] [place] [address], [place] [address] Jan, [facility] [address] [id number] [address] [place] [address], [place] [address] 14 Jan, 2013 [facility] [address] [id number] [address] [place] [address], [place] [address] Jan, [facility] [address] [id number] [address] [place] [address], [place] [address] Jan, [facility] [address] [id number] [address] [place] [address], [place] [address] Jan, [facility] [address] [id number] [address] [place] [address], [place] [address] Dec, [facility] [address] [id number] [address] [place] [address], [place] [address] Dec, [facility] [address] [id number] [address] [place] [address], [place] [address] Dec, [facility] [address] [id number] [address] [place] [address], [place] [address] Dec, [facility] [address] [id number] [address] [place] [address], [place] [address] 18 Dec, 2012 [facility] [address] [id number] [address] [place] [address], [place] [address] 17 Dec, 2012 [facility] [address] [id number] [address] [place] [address], [place] [address] 16 Dec, 2012 [facility] [address] [id number] [address] [place] [address], [place] [address] 16 Dec, 2012 [facility] [address] [id number] [address] [place] [address], [place] [address] 15 Dec, 2012 [facility] [address] [id number] [address] [place] [address], [place] [address] 10 Dec, 2012 [facility] [address] [id number] [address] [place] [address], [place] [address] Dec, [facility] [address] [id number] [address] [place] [address], [place] [address] Dec, [facility] [address] [id number] [address] [place] [address], [place] [address] Dec, [facility] [address] [id number] [address] [place] [address], [place] [address] Dec, [facility] [address] [id number] [address] [place] [address], [place] [address] Dec, [facility] [address] [id number] [address] [place] [address], [place] [address] Dec, [facility] [address] [id number] [address] [place] [address], [place] [address] October, [facility] [address] [id number] [address] [place] [address], [place] [address] October, [facility] [address] [id number] [address] [place] [address], [place] [address] October, [facility] [address] [id number] [address] [place] [address], [place] [address] October, [facility] [address] [id number] [address] [place] [address], [place] [address] October, [facility] [address] [id number] [address] [place] [address], [place] [address] October, [facility] [address] [id number] [address] [place] [address], [place] [address] October, [facility] [address] [id number] [address] [place] [address], [place] [address] Oct, [facility] [address] [id number] [address] [place] [address], [place] [address] Oct, [facility] [address] [id number] [address] [place] [address], [place] [address] Oct, [facility] [address] [id number] [address] [place] [address], [place] [address] Oct, [facility] [address] [id number] [address] [place] [address], [place] [address] Oct, [facility] [address] [id number] [address] [place] [address], [place] [address] Oct, [facility] [address] [id number] [address] [place] [address], [place] [address] Oct, [facility] [address] [id number] [address] [place] [address], [place] [address] 15 Oct, 2012 [facility] [address] [id number] [address] [place] [address], [place] [address] Oct, [facility] [address] [id number] [address] [place] [address], [place] [address] Oct, [facility] [address] [id number] [address] [place] [address], [place] [address] Oct, [facility] [address] [id number] [address] [place] [address], [place] [address] Oct, [facility] [address] [id number] [address] [place] [address], [place] [address] Aug, [facility] [address] [id number] [address] [place] [address], [place] [address] Aug, [facility] [address] [id number] [address] [place] [address], [place] [address] Aug, [facility] [address] [id number] [address] [place] [address], [place] [address] 06 Aug, 2012 [facility] [address] [id number] [address] [place] [address], [place] [address] 05 Aug, 2012 [facility] [address] [id number] [address] [place] [address], [place] [address] 05 Aug, 2012 [facility] [address] [id number] [address] [place] [address], [place] [address] 20 Aug, 2012 [facility] [address] [id number] [address] [place] [address], [place] [address] 14 Aug, 2012 [facility] [address] [id number] [address] [place] [address], [place] [address] 12 Aug, 2012 [facility] [address] [id number] [address] [place] [address], [place] [address] Aug, [facility] [address] [id number] [address] [place] [address], [place] [address] 29 Jul, 2012 [facility] [address] [id number] [address] [place] [address], [place] [address] 15 Jul, 2012 [facility] [address] [id number] [address] [place] [address], [place] [address] 08 Jul, 2012 [facility] [address] [id number] [address] [place] [address], [place] [address] 20 Jun, 2012 [facility] [address] [id number] [address] [place] [address], [place] [address] 18 Jun, 2012 [facility] [address] [id number] [address] [place] [address], [place] [address] 18 Jun, 2012 [facility] [address] [id number] [address] [place] [address], [place] [address] 18 Jun, 2012 [facility] [address] [id number] [address] [place] [address], [place] [address] 18 Jun, 2012 [facility] [address] [id number] [address] [place] [address] [address] 14 Jun, 2012 [facility] [address] [id number] [address] [place] [address], [place] [address] 14 Jun, 2012 [facility] [address] [id number] [address] [place] [address], [place] [address] 13 Jun, 2012 [facility] [address] [id number] [address] [place] [address], [place] [address] 13 Jun, 2012 [facility] [address] [id number] [address] [place] [address], [place] [address] 11 Jun, 2012 [facility] [address] [id number] [address] [place] [address], [place] [address] 11 Jun, 2012 [facility] [address] [id number] [address] [place] [address], [place] [address] 11 Jun, 2012 [facility] [address] [id number] [address] [place] [address], [place] [address] Jun, [facility] [address] [id number] [address] [place] [address], [place] [address] 07 Jun, 2012 [facility] [address] [id number] [address] [place] [address], [place] [address] 07 Jun, 2012 [facility] [address] [id number] [address] [place] [address], [place] [address] 06 Jun, 2012 [facility] [address] [id number] [address] [place] [address], [place] [address] Jun, [facility] [address] [id number] [address] [place] [address], [place] [address] Jun, [facility] [address] [id number] [address] [place] [address], [place] [address] Jun, [facility] [address] [id number] [address] [place] [address], [place] [address] 05 Jun, 2012 [facility] [address] [id number] [address] [place] [address], [place] [address] 05 Jun, 2012 [facility] [address] [id number] [address] [place] [address], [place] [address] Jun, [facility] [address] [id number] [address] [place] [address], [place] [address] Jun, [facility] [address] [id number] [address] [place] [address], [place] [address] May, [facility] [address] [id number] [address] [place] [address], [place] [address] May, [facility] [address] [id number] [address] [place] [address], [place] [address] May, [facility] [address] [id number] [address] [place] [address], [place] [address] May, [facility] [address] [id number] [address] [place] [address], [place] [address] May, [facility] [address] [id number] [address] [place] [address], [place] [address] May, [facility] [address] [id number] [address] [place] [address], [place] [address] May, [facility] [address] [id number] [address] [place] [address], [place] [address] May, [facility] [address] [id number] [address] [place] [address], [place] [address] Apr, [facility] [address] [id number] [address] [place] [address], [place] [address] 30 Apr, 2012 [facility] [address] [id number] [address] [place] [address], [place] [address] 29 Apr, 2012 [facility] [address] [id number] [address] [place] [address], [place] [address] Apr, [facility] [address] [id number] [address] [place] [address], [place] [address] Apr, [facility] [address] [id number] [address] [place] [address] Apr, [facility] [address] [id number] [address] [place] [address], [place] [address] Apr, [facility] [address] [id number] [address] [place] [address], [place] [address] Apr, [facility] [facility] [address] [id number] [address] [place] [address], [place] [address] Apr, [facility] [address] [id number] [address] [place] [address], [place] [address] Apr, [facility] [address] [id number] [address] [place] [address], [place] [address] Apr, [facility] [address] [id number] [address] [place] [address], [place] [address] Apr, [facility] [address] [id number] [address] [place] [address], [place] [address] Mar, [facility] [address] [id number] [address] [place] [address], [place] [address] 18 Mar, 2012 [facility] [address] [id number] [address] [place] [address], [place] [address] Mar, [facility] [address] [id number] [address] [place] [phone] Mar, [facility] [address] [id number] [address] [place] [id number] Mar, [facility] [address] [id number] [address] [place] [id number] Mar, [facility] [address] [id number] [address] [place] [phone] Mar, [facility] [address] [id number] [address] [place] [phone] Jan, [facility] [address] [id number] [address] [place] [phone] Jan, [facility] [address] [id number] [address] [place] [address] [id number] Jan, [facility] [address] [id number] [address] [place] [address], [place] [id number] Jan, [facility] [address] [id number] [address] [place] [address], [place] [address] Jan, [facility] [address] [id number] [address] [place] [address], [place] [address] Jan, [facility] [address] [id number] [address] [place] [address], [place] [address] Jan, [facility] [address] [id number] [address] [place] [address], [place] [address] Jan, [facility] [address] [id number] [address] [place] [address], [place] [address] Jan, [facility] [address] [id number] [address] [place] [address], [place] [address] Jan, [facility] [address] [id number] [address] [place] [address], [place] [address] Jan, [facility] [address] [id number] [address] [place] [address], [place] [address] Dec, [facility] [address] [id number] [address] [place] [address], [place] [address] Dec, [facility] [address] [id number] [address] [place] [address], [place] [address] Dec, [facility] [address] [id number] [address] [place] [address], [place] [address] Dec, [facility] [address] [id number] [address] [place] [address], [place] [address] Dec, [facility] [address] [id number] [address] [place] [address], [place] [address] Dec, [facility] [address] [id number] [address] [place] [address], [place] [address] Dec, [facility] [address] [id number] [facility] [place] [address] 17 Jan, 2012 [facility] [address] [id number] [address] [place] [address], [place] [address] 16 Jan, 2012 [facility] [address] [id number] [address] [place] [address], [place] [address] 13 Jan, 2012 [facility] [address] [id number] [address] [place] [address], [place] [address] 13 Jan, 2012 [facility] [address] [id number] [address] [place] [address], [place] [address] Dec, [facility] [address] [id number] [address] [place] [address], [place] [address] Dec, [facility] [address] [id number] [address] [place] [address], [place] [address] Dec, [facility] [address] [id number] [address] [place] [address], [place] [address] Dec, [facility] [address] [id number] [address] [place] [address], [place] [address] Dec, [facility] [address] [id number] [address] [place] [address], [place] [address] 15 Dec, 2011 [facility] [address] [id number] [address] [place] [address], [place] [address] 06 Dec, 2011 [facility] [address] [id number] [address] [place] [address], [place] [address] 05 Dec, 2011 [facility] [address] [id number] [address] [place] [address], [place] [address] October, [facility] [address] [id number] [address] [place] [address], [place] [address] October, [facility] [address] [id number] [address] [place] [address], [place] [address] October, [facility] [address] [id number] [address] [place] [address], [place] [address] October, [facility] [address] [id number] [address] [place] [address], [place] [address] October, [facility] [address] [id number] [address] [place] [address], [place] [address] October, [facility] [address] [id number] [address] [place] [address], [place] [address] Oct, [facility] [address] [id number] [address] [place] [address], [place] [address] Oct, [facility] [address] [id number] [address] [place] [address], [place] [address] Oct, [facility] [address] [id number] [address] [place] [address], [place] [address] Oct, [facility] [address] [id number] [address] [place] [address], [place] [address] Oct, [facility] [address] [id number] [address] [place] [address], [place] [address] Oct, [facility] [address] [id number] [address] [place] [address], [place] [address] Oct, [facility] [address] [id number] [address] [place] [address], [place] [address] Aug, [facility] [address] [id number] [address] [place] [address], [place] [address] Aug, [facility] [address] [id number] [address] [place] [address], [place] [address] Aug, [facility] [address] [id number] [address] [place] [address], [place] [address] Aug, [facility] [address] [id number] [address] [place] [address], [place] [address] Aug, [facility] [address] [id number] [address] [place] [address], [place] [address] Aug, [facility] [address] [id number] [address] [place] [address], [place] [address] Aug, [facility] [address] [id number] [address] [place] [address], [place] [address] Aug, [facility] [address] [id number] [address] [place] [address], [place] [address] 08 Aug, 2011 [facility] [address] [id number] [address] [place] [address], [place] [address] Jul, [facility] [address] [id number] [address] [place] [address], [place] [address] Jul, [facility] [address] [id number] [address] [place] [address], [place] [address] Jul, [facility] [address] [id number] [address] [place] [address], [place] [address] Jul, [facility] [address] [id number] [address] [place] [address], [place] [address] Jun, [facility] [address] [id number] [address] [place] [address], [place] [address] Jun, [facility] [address] [id number] [address] [place] [address], [place] [address] May, [facility] [address] [id number] [address] [place] [address], [place] [address] May, [facility] [address] [id number] [address] [place] [address], [place] [address] May, [facility] [address] [id number] [address] [place] [address], [place] [address] May, [facility] [address] [id number] [address] [place] [address], [place] [address] May, [facility] [address] [id number] [address] [place] [address], [place] [address] 28 Apr, 2011 [facility] [address] [id number] [address] [place] [address], [place] [address] Apr, [facility] [address] [id number] [address] [place] [phone] Apr, [facility] [address] [id number] [address] [place] [address] Jan, [facility] [address] [id number] [address] [place] [address] Dec, [facility] [address] [id number] [address] [place] [phone] October, [facility] [address] [id number] [address] [place] [id number] Jun, [facility] [address] [id number] [address] [place] [phone] Apr, [facility] [address] [id number] [address] [place] [address] Apr, [facility] [address] [id number] [address] [place] [phone] Apr, [facility] [address] [id number] [address] [place] [phone] Jun, IMMUNIZATIONS No Known Immunizations SOCIAL HISTORY [...]
--- OUTSIDE RECORDS SUMMARY | 2020-01-25 13:21 | XMS REPORT ---
Author Author Moreno Ana Doctor Organization [facility] Address Unknown Phone Unavailable Care Team Providers Care Glue Mixer Name Role Phone Migration, Doctor Unavailable Unavailable PROBLEMS Type Condition ICD9-CM Code [id number] Code Onset Dates Condition S tatus SNOMED Code Problem Chronic hepatitis C without hepatic coma B18.2 Active 051422311 Problem Cannabis abuse F12.10 Active 26109 009 Problem Bipolar 1 disorder F31.9 Active 3 63753240 Problem Attention deficit hyperactivity disorder (ADHD), combi luciano type F90.2 Active 13806126 Problem Attention deficit R41.840 Active 76 432484 Problem Hot flashes due to menopause N95.1 A ctive 518872105 Problem H/O laminectomy Z98.89 Active 1616 02056 Problem Other chronic pain G89.29 Active 8 3035635 Problem Anxiety disorder, unspecified type F41.9 Active 157389437 Problem Bipolar disorder, in partial remission, most rec ent episode hypomanic F31.71 Active 625601780 ALLERGIES No Information ENCOUNTERS Encounter Location Date Diagnosis [facility] [address] [id number] [address] [place] [id number] Oct, [facility] [address] [facility] [id number] [address] [place] [phone] Oct, [facility] [address] [facility] [id number] [address] [place] [phone] Aug, [facility] [address] [facility] [id number] [address] [place] [phone] Jul, [facility] [address] [facility] [id number] [address] [place] [phone] Jul, [facility] [address] [facility] [id number] [address] [place] [phone] Apr, [facility] [address] [facility] [id number] [address] [place] [id number] Mar, Hot flashes due to menopause N95.1 ; Anxiety disorder, unspecified type F41.9 ; Low back pain M54.5 and Encounter for immunization Z23 [facility] [address] [facility] [id number] [address] [place] [phone] Dec, Other chronic pain G89.29 an d Low back pain M54.5 [facility] [address] [facility] [id number] [address] [place] [phone] October, [facility] [address] [facility] [id number] [address] [place] [phone] October, [facility] [address] [facility] [id number] [address] [place] [phone] October, [facility] [address] [facility] [id number] [address] [place] [phone] October, Other chronic pain G89.29 an d Chronic hepatitis C without hepatic coma B18.2 [facility] [address] [facility] [id number] [address] [place] [id number] Aug, Bipolar disorder, in partial remission, most recent episode hypomanic F31.71 ; Attention deficit hyperactivity disorder (ADHD), combined type F90.2 and Anxiety disorder, unspecified type F41.9 [facility] [address] [facility] [id number] [address] [place] [phone] Aug, [facility] [address] [facility] [id number] [address] [place] [id number] Aug, Bipolar disorder, in partial remission, most recent episode hypomanic F31.71 [facility] [address] [facility] [id number] [address] [place] [phone] Aug, [facility] [address] [facility] [id number] [address] [place] [phone] Aug, Bipolar disorder, in partial remission, most recent episode hypomanic F31.71 [facility] [address] [facility] [id number] [address] [place] [phone] Aug, Bipolar disorder, in partial remission, most recent episode hypomanic F31.71 ; Attention deficit hyperactivity disorder (ADHD), combined type F90.2 and Anxiety disorder, unspecified type F41.9 [facility] [address] [id number] [address] [place] [id number] Aug, Low back pain M54.5 and Pain in left wrist M25.532 [facility] [address] [id number] [address] [place] [phone] Aug, [facility] [address] [id number] [address] [place] [phone] Jun, [facility] [address] [id number] [address] [place] [phone] Apr, Bipolar disorder, in partial remission, most recent episode hypomanic F31.71 [facility] [address] [id number] [address] [place] [phone] Apr, [facility] [address] [id number] [address] [place] [id number] Apr, Bipolar disorder, in partial remission, most recent episode hypomanic F31.71 ; Attention deficit hyperactivity disorder (ADHD), combined type F90.2 ; Anxiety disorder, unspecified type F41.9 and 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 [facility] [address] [id number] [address] [place] [phone] Apr, Bipolar disorder, in partial remission, most recent episode hypomanic F31.71 [facility] [address] [id number] [address] [place] [phone] Apr, Bipolar disorder, in partial remission, most recent episode hypomanic F31.71 [facility] [address] [id number] [address] [place] [phone] Mar, [facility] [address] [id number] [address] [place] [phone] Mar, Bipolar disorder, in partial remission, most recent episode hypomanic F31.71 ; Encounter for immunization Z23 and Low back pain M54.5 [facility] [address] [id number] [address] [place] [phone] Mar, Bipolar disorder, in partial remission, most recent episode hypomanic F31.71 [facility] [address] [id number] [address] [place] [phone] Mar, Bipolar disorder, in partial remission, most recent episode hypomanic F31.71 [facility] [address] [id number] [address] [place] [phone] Jan, Bipolar disorder, in partial remission, most recent episode hypomanic F31.71 [facility] [address] [id number] [address] [place] [phone] Jan, Bipolar disorder, in partial remission, most recent episode hypomanic F31.71 [facility] [address] [facility] [id number] [address] [place] [phone] Dec, Bipolar disorder, in partial remission, most recent episode hypomanic F31.71 [facility] [address] [id number] [address] [place] [phone] Dec, Bipolar disorder, in partial remission, most recent episode hypomanic F31.71 ; Attention deficit hyperactivity disorder (ADHD), combined type F90.2 ; Anxiety disorder, unspecified type F41.9 and Other fci (current) drug therapy Z79.899 [facility] [address] [id number] [address] [place] [phone] Dec, Bipolar disorder, in partial remission, most recent episode hypomanic F31.71 [facility] [address] [id number] [address] [place] [phone] Dec, Bipolar disorder, in partial remission, most recent episode hypomanic F31.71 [facility] [address] [id number] [address] [place] [phone] October, Bipolar disorder, in partial remission, most recent episode hypomanic F31.71 [facility] [address] [id number] [address] [place] [phone] October, [facility] [address] [id number] [address] [place] [id number] October, [facility] [address] [id number] [address] [place] [phone] Oct, Bipolar disorder, in partial remission, most recent episode hypomanic F31.71 ; Attention deficit hyperactivity disorder (ADHD), combined type F90.2 ; Anxiety disorder, unspecified type F41.9 and Encounter for drug screening Z02.83 [facility] [address] [id number] [address] [place] [phone] Oct, Bipolar disorder, in partial remission, most recent episode hypomanic F31.71 [facility] [address] [facility] [id number] [address] [place] [phone] Oct, Bipolar disorder, in partial remission, most recent episode hypomanic F31.71 [facility] [address] [facility] [id number] [address] [place] [phone] Aug, Bipolar disorder, in partial remission, most recent episode hypomanic F31.71 [facility] [address] [facility] [id number] [address] [place] [id number] Aug, Bipolar disorder, in partial remission, most recent episode hypomanic F31.71 [facility] [address] [facility] [id number] [address] [place] [id number] Aug, Bipolar disorder, in partial remission, most recent episode hypomanic F31.71 [facility] [address] [id number] [address] [place] [phone] Jul, Bipolar disorder, in partial remission, most recent episode hypomanic F31.71 ; Attention deficit hyperactivity disorder (ADHD), combined type F90.2 and Anxiety disorder, unspecified type F41.9 [facility] [address] [id number] [address] [place] [phone] Jul, Bipolar disorder, in partial remission, most recent episode hypomanic F31.71 [facility] [address] [id number] [address] [place] [id number] Jun, Bipolar disorder, in partial remission, most recent episode hypomanic F31.71 [facility] [address] [id number] [address] [place] [phone] May, Bipolar disorder, in partial remission, most recent episode hypomanic F31.71 [facility] [address] [id number] [address] [place] [phone] May, Bipolar disorder, in partial remission, most recent episode hypomanic F31.71 [facility] [address] [id number] [address] [place] [id number] Apr, [facility] [address] [facility] [id number] [address] [place] [id number] Apr, Bipolar disorder, in partial remission, most recent episode hypomanic F31.71 ; Attention deficit hyperactivity disorder (ADHD), combined type F90.2 ; Anxiety disorder, unspecified type F41.9 and Cannabis abuse F12.10 [facility] [address] [id number] [address] [place] [phone] Apr, Attention deficit hyperactiv ity disorder (ADHD), combined type F90.2 [facility] [address] [facility] [id number] [address] [place] [phone] Mar, Attention deficit hyperactiv ity disorder (ADHD), combined type F90.2 [facility] [address] [facility] [id number] [address] [place] [phone] 14 Mar, 2017 Anxiety disorder, unspecifie d type F41.9 [facility] [address] [facility] [id number] [address] [place] [id number] 18 Jan, 2017 Attention deficit hyperactiv ity disorder (ADHD), combined type F90.2 [facility] [address] [facility] [id number] [address] [place] [phone] 16 Jan, 2017 Anxiety disorder, unspecifie d type F41.9 [place] [id number] [facility] [id number] [address] [place] [phone] Jan, Other chronic pain G89.29 ; Chronic hepatitis C without hepatic coma B18.2 and Bipolar 1 disorder F31.9 [facility] [address] [facility] [id number] [address] [place] [phone] Dec, Attention deficit hyperactiv ity disorder (ADHD), combined type F90.2 [facility] [address] [facility] [id number] [address] [place] [phone] Dec, Bipolar disorder, in partial remission, most recent episode hypomanic F31.71 ; Attention deficit hyperactivity disorder (ADHD), combined type F90.2 and Anxiety disorder, unspecified type F41.9 [place] [address] [facility] [id number] [address] [place] [phone] Dec, Bipolar disorder, in partial remission, most recent episode hypomanic F31.71 ; Attention deficit hyperactivity disorder (ADHD), combined type F90.2 and Anxiety disorder, unspecified type F41.9 [facility] [address] [place] [id number] [address] [place] [phone] Dec, Bipolar 1 disorder F31.9 and Attention deficit R41.840 [place] [address] [place] [id number] [address] [place] [phone] Oct, Other chronic pain G89.29 ; Alopecia L65.9 and Screening, lipid Z13.220 [place] [address] [facility] [id number] [address] [place] [phone] Oct, [place] [address] [place] [id number] [address] [place] [id number] Aug, [place] [address] [place] [id number] [address] [place] [phone] Aug, Eustachian tube dysfunction, right H69.81 ; Vertigo R42 and Other chronic pain G89.29 [place] [address] [place] [id number] [address] [place] [phone] Aug, [facility] [address] [id number] [address] [place] [phone] Jun, [facility] [address] [id number] [address] [place] [id number] Jun, Low back pain M54.5 and Othe r chronic pain G89.29 [facility] [address] [id number] [address] [place] [phone] Jun, [facility] [address] [id number] [address] [place] [phone] May, [facility] [address] [id number] [address] [place] [phone] Jan, [facility] [address] [id number] [address] [place] [phone] Dec, [facility] [address] [id number] [address] [place] [id number] Dec, [facility] [address] [id number] [address] [place] [phone] Jun, [facility] [address] [id number] [address] [place] [phone] Apr, Eustachian tube dysfunction, unspecified laterality H69.80 ; Hot flashes N95.1 and Encounter for immunization Z23 [facility] [address] [id number] [address] [place] [phone] Jan, [facility] [address] [id number] [address] [place] [phone] Jan, [facility] [address] [id number] [address] [place] [phone] Jan, [facility] [address] [facility] [id number] [address] [place] [phone] Jan, [facility] [address] [id number] [address] [place] [phone] Jan, Encounter to establish care V65.8 ; Bipolar 1 disorder 296.7 ; Abdominal pain 789.00 ; Constipation 564.00 ; Hard of hearing 389.9 and Drug abuse 305.90 [facility] [address] [id number] [address] [place] [id number] Dec, [facility] [address] [facility] [id number] [address] [place] [phone] October, [facility] [address] [id number] [address] [place] [phone] October, [facility] [address] [id number] [address] [place] [phone] Oct, [facility] [address] [id number] [address] [place] [phone] Oct, [facility] [address] [facility] [id number] [address] [place] [phone] Oct, [facility] [address] [id number] [address] [place] [phone] Aug, [facility] [address] [id number] [address] [place] [phone] Aug, [facility] [address] [facility] [id number] [address] [place] [phone] Aug, [facility] [address] [id number] [address] [place] [phone] Aug, [facility] [address] [id number] [address] [place] [phone] Aug, [facility] [address] [id number] [address] [place] [phone] Aug, [facility] [address] [id number] [address] [place] [phone] Aug, [facility] [address] [id number] [address] [place] [phone] Aug, [facility] [place] [facility] [address] [id number] [address] [place] [address], [place] [address] Aug, 2014 [facility] [address] [id number] [address] [place] [address], [place] [address] Aug, 2014 [facility] [place] [facility] [address] [id number] [address] [place] [address], [place] [address] Aug, 2014 [facility] [place] [facility] [address] [id number] [address] [place] [address], [place] [address] Aug, 2014 [facility] [place] [facility] [address] [id number] [address] [place] [address], [place] [address] Aug, 2014 [facility] [place] [facility] [address] [id number] [address] [place] [address], [place] [address] Aug, 2014 [facility] [address] [id number] [address] [place] [address], [place] [address] Aug, [facility] [address] [id number] [address] [place] [address], [place] [address] Jul, [facility] [address] [id number] [address] [place] [address], [place] [address] Jul, [facility] [address] [id number] [address] [place] [address], [place] [address] Jul, [facility] [address] [id number] [address] [place] [address], [place] [address] Jul, [facility] [place] [facility] [address] [id number] [address] [place] [address], [place] [address] Jul, [facility] [place] [facility] [address] [id number] [address] [place] [address], [place] [address] Jul, [facility] [place] [facility] [address] [id number] [address] [place] [address], [place] [address] Jul, [facility] [place] [facility] [address] [id number] [address] [place] [address], [place] [address] Jul, [facility] [place] [facility] [address] [id number] [address] [place] [address], [place] [address] Jun, [facility] [address] [id number] [address] [place] [address], [place] [address] Jun, [facility] [place] [facility] [address] [id number] [address] [place] [address], [place] [address] Jun, [facility] [place] [facility] [address] [id number] [address] [place] [address], [place] [address] Jun, [facility] [place] [facility] [address] [id number] [address] [place] [address], [place] [address] Jun, [facility] [place] [facility] [address] [id number] [address] [place] [address], [place] [address] Jun, [facility] [place] [facility] [address] [id number] [address] [place] [address], [place] [address] Jun, [facility] [address] [id number] [address] [place] [address], [place] [address] Jun, [facility] [place] [facility] [address] [id number] [address] [place] [address], [place] [address] Jun, [facility] [place] [facility] [address] [id number] [address] [place] [address], [place] [address] Jun, [facility] [place] [facility] [address] [id number] [address] [place] [address], [place] [address] Jun, [facility] [place] [facility] [address] [id number] [address] [place] [address], [place] [address] May, [facility] [place] [facility] [address] [id number] [address] [place] [address], [place] [address] May, [facility] [place] [facility] [address] [id number] [address] [place] [address], [place] [address] May, [facility] [place] [facility] [address] [id number] [address] [place] [address], [place] [address] May, [facility] [place] [facility] [address] [id number] [address] [place] [address], [place] [address] May, [facility] [place] [facility] [address] [id number] [address] [place] [address], [place] [address] May, [facility] [address] [id number] [address] [place] [address], [place] [address] May, [facility] [place] [facility] [address] [id number] [address] [place] [address], [place] [address] Apr, [facility] [address] [id number] [address] [place] [address], [place] [address] Apr, [facility] [address] [id number] [address] [place] [address], [place] [address] Apr, [facility] [address] [id number] [address] [place] [address], [place] [address] Apr, [facility] [address] [id number] [address] [place] [address], [place] [address] Apr, [facility] [address] [id number] [address] [place] [address], [place] [address] Apr, [facility] [address] [id number] [address] [place] [address], [place] [address] Mar, [facility] [place] [facility] [address] [id number] [address] [place] [address], [place] [address] Mar, [facility] [address] [id number] [address] [place] [address], [place] [address] Mar, [facility] [place] [facility] [address] [id number] [address] [place] [address], [place] [address] Mar, [facility] [address] [id number] [address] [place] [address], [place] [address] Mar, [facility] [place] [facility] [address] [id number] [address] [place] [address], [place] [address] Mar, [facility] [place] [facility] [address] [id number] [address] [place] [address], [place] [address] Jan, [facility] [place] [facility] [address] [id number] [address] [place] [address], [place] [address] Jan, [facility] [address] [id number] [address] [place] [address], [place] [address] Jan, [facility] [place] [facility] [address] [id number] [address] [place] [address], [place] [address] Jan, [facility] [place] [facility] [address] [id number] [address] [place] [address], [place] [address] Dec, [facility] [place] [facility] [address] [id number] [address] [place] [address], [place] [address] Dec, [facility] [place] [facility] [address] [id number] [address] [place] [address], [place] [address] Dec, [facility] [place] [facility] [address] [id number] [address] [place] [address], [place] [address] Dec, [facility] [place] [facility] [address] [id number] [address] [place] [address], [place] [address] Dec, [facility] [place] [facility] [address] [id number] [address] [place] [address], [place] [address] Dec, [facility] [place] [facility] [address] [id number] [address] [place] [address], [place] [address] Dec, [facility] [place] [facility] [address] [id number] [address] [place] [address], [place] [address] Dec, [facility] [place] [facility] [address] [id number] [address] [place] [address], [place] [address] Dec, [facility] [place] [facility] [address] [id number] [address] [place] [address], [place] [address] Dec, [facility] [place] [facility] [address] [id number] [address] [place] [address], [place] [address] Dec, [facility] [place] [facility] [address] [id number] [address] [place] [address], [place] [address] Dec, [facility] [place] [facility] [address] [id number] [address] [place] [address], [place] [address] October, [facility] [place] [facility] [address] [id number] [address] [place] [address], [place] [address] October, [facility] [address] [id number] [address] [place] [address], [place] [address] October, [facility] [address] [id number] [address] [place] [address], [place] [address] October, [facility] [facility] [address] [id number] [address] [place] [address], [place] [address] October, [facility] [address] [id number] [address] [place] [address], [place] [address] October, [facility] [address] [id number] [address] [place] [address], [place] [address] Oct, [facility] [address] [id number] [address] [place] [address], [place] [address] Oct, [facility] [address] [id number] [address] [place] [address], [place] [address] Oct, [facility] [address] [id number] [address] [place] [address], [place] [address] Oct, [facility] [address] [id number] [address] [place] [address], [place] [address] Oct, [facility] [address] [id number] [address] [place] [address], [place] [address] Oct, [facility] [address] [id number] [address] [place] [address], [place] [address] Oct, [facility] [address] [id number] [address] [place] [address], [place] [address] Oct, [facility] [address] [id number] [address] [place] [address], [place] [address] Oct, [facility] [address] [id number] [address] [place] [address], [place] [address] Oct, [facility] [address] [id number] [address] [place] [address], [place] [address] Oct, [facility] [address] [id number] [facility] [place] [address] 08 Oct, 2013 [facility] [place] [facility] [address] [id number] [facility] [place] [address] 15 Aug, 2013 [facility] [place] [facility] [address] [id number] [facility] [place] [address] 15 Aug, 2013 [facility] [place] [facility] [address] [id number] [address] [place] [address], [place] [address] Aug, [facility] [place] [facility] [address] [id number] [address] [place] [address], [place] [address] Aug, [facility] [place] [facility] [address] [id number] [address] [place] [address], [place] [address] Aug, [facility] [place] [facility] [address] [id number] [address] [place] [address], [place] [address] Aug, [facility] [place] [facility] [address] [id number] [address] [place] [address], [place] [address] Aug, [facility] [place] [facility] [address] [id number] [address] [place] [address], [place] [address] Aug, [facility] [place] [facility] [address] [id number] [address] [place] [address], [place] [address] Aug, [facility] [place] [facility] [address] [id number] [address] [place] [address], [place] [address] Aug, [facility] [place] [facility] [address] [id number] [address] [place] [address], [place] [address] Aug, [facility] [place] [facility] [address] [id number] [address] [place] [address], [place] [address] Aug, [facility] [place] [facility] [address] [id number] [address] [place] [address], [place] [address] Aug, [facility] [place] [facility] [address] [id number] [address] [place] [address], [place] [address] Aug, [facility] [place] [facility] [address] [id number] [address] [place] [address], [place] [address] 14 Aug, 2013 [facility] [address] [id number] [address] [place] [address], [place] [address] 14 Aug, 2013 [facility] [address] [id number] [address] [place] [address], [place] [address] 14 Aug, 2013 [facility] [address] [id number] [address] [place] [address], [place] [address] 14 Aug, 2013 [facility] [address] [id number] [address] [place] [address], [place] [address] 07 Aug, 2013 [facility] [address] [id number] [address] [place] [address], [place] [address] 07 Aug, 2013 [facility] [address] [id number] [address] [place] [address], [place] [address] 06 Aug, 2013 [facility] [address] [id number] [address] [place] [address], [place] [address] 06 Aug, 2013 [facility] [address] [id number] [address] [place] [address], [place] [address] 04 Aug, 2013 [facility] [address] [id number] [address] [place] [address], [place] [address] 04 Aug, 2013 [facility] [address] [id number] [address] [place] [address], [place] [address] Aug, [facility] [address] [id number] [address] [place] [address], [place] [address] Jul, [facility] [address] [id number] [address] [place] [address], [place] [address] Jul, [facility] [address] [id number] [address] [place] [address], [place] [address] Jul, [facility] [address] [id number] [address] [place] [address], [place] [address] Jul, [facility] [address] [id number] [address] [place] [address], [place] [address] Jul, [facility] [address] [id number] [address] [place] [address], [place] [address] Jul, [facility] [address] [id number] [address] [place] [address], [place] [address] Jul, [facility] [address] [id number] [address] [place] [address], [place] [address] Jul, [facility] [address] [id number] [address] [place] [address], [place] [address] Jul, [facility] [address] [id number] [address] [place] [address], [place] [address] Jul, [facility] [address] [id number] [address] [place] [address], [place] [address] Jul, [facility] [address] [id number] [address] [place] [address], [place] [address] Jul, [facility] [address] [id number] [address] [place] [address], [place] [address] Jul, [facility] [address] [id number] [address] [place] [address], [place] [address] Jul, [facility] [address] [id number] [address] [place] [address], [place] [address] Jul, [facility] [address] [id number] [address] [place] [address], [place] [address] Jul, [facility] [address] [id number] [address] [place] [address], [place] [address] Jul, [facility] [address] [id number] [address] [place] [address], [place] [address] Jul, [facility] [address] [id number] [address] [place] [address], [place] [address] Jul, [facility] [address] [id number] [address] [place] [address], [place] [address] Jul, [facility] [address] [id number] [address] [place] [address], [place] [address] 31 Jun, 2013 [facility] [place] [facility] [address] [id number] [address] [place] [address], [place] [address] 31 Jun, 2013 [facility] [address] [id number] [address] [place] [address], [place] [address] Jun, [facility] [address] [id number] [address] [place] [address], [place] [address] Jun, [facility] [address] [id number] [address] [place] [address], [place] [address] Jun, [facility] [address] [id number] [address] [place] [address], [place] [address] Jun, [facility] [address] [id number] [address] [place] [address], [place] [address] Jun, [facility] [address] [id number] [address] [place] [address], [place] [address] Jun, [facility] [place] [facility] [address] [id number] [address] [place] [address], [place] [address] Jun, [facility] [place] [facility] [address] [id number] [address] [place] [address], [place] [address] Jun, [facility] [address] [id number] [address] [place] [address], [place] [address] Jun, [facility] [place] [facility] [address] [id number] [address] [place] [address], [place] [address] Jun, [facility] [address] [id number] [address] [place] [address], [place] [address] Jun, [facility] [address] [id number] [address] [place] [address], [place] [address] Jun, [facility] [address] [id number] [address] [place] [address], [place] [address] Jun, [facility] [address] [id number] [address] [place] [address], [place] [address] 18 Jun, 2013 [facility] [address] [id number] [address] [place] [address], [place] [address] 18 Jun, 2013 [facility] [address] [id number] [address] [place] [address], [place] [address] 17 Jun, 2013 [facility] [address] [id number] [address] [place] [address], [place] [address] 17 Jun, 2013 [facility] [address] [id number] [address] [place] [address], [place] [address] 13 Jun, 2013 [facility] [address] [id number] [address] [place] [address], [place] [address] 12 Jun, 2013 [facility] [address] [id number] [address] [place] [address], [place] [address] 12 Jun, 2013 [facility] [address] [id number] [address] [place] [address], [place] [address] 09 Jun, 2013 [facility] [address] [id number] [address] [place] [address], [place] [address] 05 Jun, 2013 [facility] [address] [id number] [address] [place] [address], [place] [address] 05 Jun, 2013 [facility] [address] [id number] [address] [place] [address], [place] [address] 04 Jun, 2013 [facility] [address] [id number] [address] [place] [address], [place] [address] 04 Jun, 2013 [facility] [address] [id number] [address] [place] [address], [place] [address] May, [facility] [address] [id number] [address] [place] [address], [place] [address] 17 May, 2013 [facility] [address] [id number] [address] [place] [address], [place] [address] May, [facility] [address] [id number] [address] [place] [address], [place] [address] May, [facility] [address] [id number] [address] [place] [address] [address] May, [facility] [address] [id number] [address] [place] [address], [place] [address] May, [facility] [address] [id number] [address] [place] [address], [place] [address] Apr, [facility] [address] [id number] [address] [place] [address], [place] [address] Apr, [facility] [address] [id number] [address] [place] [address], [place] [address] Apr, [facility] [address] [id number] [address] [place] [address], [place] [address] Apr, [facility] [address] [id number] [address] [place] [address], [place] [address] Apr, [facility] [address] [id number] [address] [place] [address], [place] [address] Apr, [facility] [address] [id number] [address] [place] [address], [place] [address] 15 Apr, 2013 [facility] [address] [id number] [address] [place] [address], [place] [address] Apr, [facility] [address] [id number] [address] [place] [address] 26 Mar, 2013 [facility] [address] [id number] [address] [place] [address] 24 Sep, 2012 [facility] [place] [facility] [address] [id number] [address] [place] [address] 17 Sep, 2012 [facility] [place] [facility] [address] [id number] [address] [place] [address], [place] [address] 17 Sep, 2012 [facility] [place] [facility] [address] [id number] [address] [place] [address] 11 Sep, 2012 [facility] [place] [facility] [address] [id number] [address] [place] [address], [place] [address] 10 Mar, 2012 [facility] [place] [facility] [address] [id number] [address] [place] [address], [place] [address] 05 Mar, 2013 [facility] [address] [id number] [address] [place] [address], [place] [address] 04 Mar, 2013 [facility] [address] [id number] [address] [place] [address], [place] [address] Jan, [facility] [address] [id number] [address] [place] [address], [place] [address] Jan, [facility] [address] [id number] [address] [place] [address], [place] [address] Jan, [facility] [address] [id number] [address] [place] [address], [place] [address] Jan, [facility] [address] [id number] [address] [place] [address], [place] [address] Jan, [facility] [place] [facility] [address] [id number] [address] [place] [address], [place] [address] Jan, [facility] [place] [facility] [address] [id number] [address] [place] [address], [place] [address] Dec, [facility] [address] [id number] [address] [place] [address], [place] [address] 24 Dec, 2012 [facility] [place] [facility] [address] [id number] [address] [place] [address], [place] [address] Dec, [facility] [address] [id number] [address] [place] [address], [place] [address] Dec, [facility] [address] [id number] [address] [place] [address], [place] [address] 18 Dec, 2012 [facility] [address] [id number] [address] [place] [address], [place] [address] 17 Dec, 2012 [facility] [address] [id number] [address] [place] [address], [place] [address] 16 Dec, 2012 [facility] [address] [id number] [address] [place] [address], [place] [address] 16 Dec, 2012 [facility] [address] [id number] [address] [place] [address], [place] [address] 15 Dec, 2012 [facility] [place] [facility] [address] [id number] [address] [place] [address], [place] [address] Dec, [facility] [address] [id number] [address] [place] [address], [place] [address] Dec, [facility] [address] [id number] [address] [place] [address], [place] [address] Dec, [facility] [address] [id number] [address] [place] [address], [place] [address] Dec, [facility] [place] [facility] [address] [id number] [address] [place] [address], [place] [address] Dec, [facility] [address] [id number] [address] [place] [address], [place] [address] Dec, [facility] [address] [id number] [address] [place] [address], [place] [address] Dec, [facility] [address] [id number] [address] [place] [address], [place] [address] October, [facility] [address] [id number] [address] [place] [address], [place] [address] October, [facility] [address] [id number] [address] [place] [address], [place] [address] October, [facility] [address] [id number] [address] [place] [address], [place] [address] October, [facility] [address] [id number] [address] [place] [address], [place] [address] October, [facility] [address] [id number] [address] [place] [address], [place] [address] October, [facility] [address] [id number] [address] [place] [address], [place] [address] October, [facility] [address] [id number] [address] [place] [address], [place] [address] 29 Oct, 2012 [facility] [address] [id number] [address] [place] [address], [place] [address] Oct, [facility] [address] [id number] [address] [place] [address], [place] [address] 24 Oct, 2012 [facility] [address] [id number] [address] [place] [address], [place] [address] Oct, [facility] [address] [id number] [address] [place] [address], [place] [address] Oct, [facility] [address] [id number] [address] [place] [address], [place] [address] 18 Oct, 2012 [facility] [address] [id number] [address] [place] [address], [place] [address] 17 Oct, 2012 [facility] [address] [id number] [address] [place] [address], [place] [address] 15 Oct, 2012 [facility] [address] [id number] [address] [place] [address], [place] [address] Oct, [facility] [address] [id number] [address] [place] [address], [place] [address] Oct, [facility] [address] [id number] [address] [place] [address], [place] [address] Oct, [facility] [address] [id number] [address] [place] [address], [place] [address] Oct, [facility] [address] [id number] [address] [place] [address], [place] [address] Aug, [facility] [address] [id number] [address] [place] [address], [place] [address] Aug, [facility] [address] [id number] [address] [place] [address], [place] [address] Aug, [facility] [address] [id number] [address] [place] [address], [place] [address] Aug, [facility] [address] [id number] [address] [place] [address], [place] [address] 05 Aug, 2012 [facility] [address] [id number] [address] [place] [address], [place] [address] 05 Aug, 2012 [facility] [address] [id number] [address] [place] [address], [place] [address] 20 Aug, 2012 [facility] [address] [id number] [address] [place] [address], [place] [address] 14 Aug, 2012 [facility] [address] [id number] [address] [place] [address], [place] [address] 12 Aug, 2012 [facility] [address] [id number] [address] [place] [address], [place] [address] 11 Aug, 2012 [facility] [address] [id number] [address] [place] [address], [place] [address] 29 Jul, 2012 [facility] [address] [id number] [address] [place] [address], [place] [address] 15 Jul, 2012 [facility] [place] [facility] [address] [id number] [address] [place] [address], [place] [address] 08 Jul, 2012 [facility] [address] [id number] [address] [place] [address], [place] [address] 20 Jun, 2012 [facility] [address] [id number] [address] [place] [address], [place] [address] 18 Jun, 2012 [facility] [address] [id number] [address] [place] [address], [place] [address] 18 Jun, 2012 [facility] [address] [id number] [address] [place] [address], [place] [address] 18 Jun, 2012 [facility] [address] [id number] [address] [place] [address], [place] [address] 18 Jun, 2012 [facility] [address] [id number] [address] [place] [address], [place] [address] 14 Jun, 2012 [facility] [address] [id number] [address] [place] [address] [address] 14 Jun, 2012 [facility] [address] [id number] [address] [place] [address], [place] [address] 13 Jun, 2012 [facility] [address] [id number] [address] [place] [address], [place] [address] 13 Jun, 2012 [facility] [address] [id number] [address] [place] [address], [place] [address] 11 Jun, 2012 [facility] [address] [id number] [address] [place] [address], [place] [address] 11 Jun, 2012 [facility] [address] [id number] [address] [place] [address], [place] [address] Jun, [facility] [address] [id number] [address] [place] [address], [place] [address] Jun, [facility] [address] [id number] [address] [place] [address], [place] [address] 07 Jun, 2012 [facility] [address] [id number] [address] [place] [address], [place] [address] 07 Jun, 2012 [facility] [address] [id number] [address] [place] [address], [place] [address] Jun, [facility] [address] [id number] [address] [place] [address], [place] [address] 06 Jun, 2012 [facility] [address] [id number] [address] [place] [address], [place] [address] Jun, [facility] [address] [id number] [address] [place] [address], [place] [address] Jun, [facility] [address] [id number] [address] [place] [address], [place] [address] Jun, [facility] [address] [id number] [address] [place] [address], [place] [address] 05 Jun, 2012 [facility] [address] [id number] [address] [place] [address], [place] [address] Jun, [facility] [address] [id number] [address] [place] [address], [place] [address] Jun, [facility] [address] [id number] [address] [place] [address], [place] [address] May, [facility] [place] [facility] [address] [id number] [address] [place] [address], [place] [address] May, [facility] [address] [id number] [address] [place] [address], [place] [address] May, [facility] [place] [facility] [address] [id number] [address] [place] [address], [place] [address] May, [facility] [address] [id number] [address] [place] [address], [place] [address] May, [facility] [place] [facility] [address] [id number] [address] [place] [address], [place] [address] May, [facility] [address] [id number] [address] [place] [address], [place] [address] May, [facility] [place] [facility] [address] [id number] [address] [place] [address], [place] [address] May, [facility] [place] [facility] [address] [id number] [address] [place] [address], [place] [address] Apr, [facility] [place] [facility] [address] [id number] [address] [place] [address], [place] [address] Apr, [facility] [place] [facility] [address] [id number] [address] [place] [address], [place] [address] 29 Apr, 2012 [facility] [place] [facility] [address] [id number] [address] [place] [address] Apr, [facility] [place] [facility] [address] [id number] [address] [place] [address], [place] [address] Apr, [facility] [place] [facility] [address] [id number] [address] [place] [address], [place] [address] Apr, [facility] [place] [facility] [address] [id number] [address] [place] [address] Apr, [facility] [place] [facility] [address] [id number] [address] [place] [address], [place] [address] Apr, [facility] [address] [id number] [address] [place] [address], [place] [address] Apr, [facility] [address] [id number] [address] [place] [address], [place] [address] Apr, [facility] [address] [id number] [address] [place] [address], [place] [address] Apr, [facility] [address] [id number] [address] [place] [address], [place] [address] Apr, [facility] [address] [id number] [address] [place] [address], [place] [address] Mar, [facility] [address] [id number] [address] [place] [address], [place] [address] 18 Mar, 2012 [facility] [address] [id number] [address] [place] [id number] Mar, [facility] [address] [id number] [address] [place] [address], [place] [address] Mar, [facility] [address] [id number] [address] [place] [id number] Mar, [facility] [address] [id number] [address] [place] [id number] Mar, [facility] [address] [id number] [address] [place] [id number] Mar, [facility] [address] [id number] [address] [place] [id number] Jan, [facility] [address] [id number] [address] [place] [id number] Jan, [facility] [address] [id number] [address] [place] [id number] Jan, [facility] [address] [id number] [address] [place] [id number] Jan, [facility] [address] [id number] [address] [place] [address], [place] [address] Jan, [facility] [address] [id number] [address] [place] [address], [place] [address] Jan, [facility] [address] [id number] [address] [place] [address], [place] [address] Jan, [facility] [address] [id number] [address] [place] [address], [place] [address] Jan, [facility] [address] [id number] [address] [place] [address], [place] [address] Jan, [facility] [address] [id number] [address] [place] [address], [place] [address] Jan, [facility] [address] [id number] [address] [place] [address], [place] [address] Jan, [facility] [address] [id number] [address] [place] [address], [place] [address] Dec, [facility] [address] [id number] [address] [place] [address], [place] [address] Dec, [facility] [address] [id number] [address] [place] [address], [place] [address] Dec, [facility] [address] [id number] [address] [place] [address], [place] [address] Dec, [facility] [address] [id number] [address] [place] [address], [place] [address] Dec, [facility] [address] [id number] [address] [place] [address], [place] [address] Dec, [facility] [address] [id number] [address] [place] [address], [place] [address] Dec, [facility] [address] [id number] [address] [place] [address], [place] [address] Dec, [facility] [address] [id number] [address] [place] [address], [place] [address] 16 Jan, 2012 [facility] [address] [id number] [address] [place] [address], [place] [address] 13 Jan, 2012 [facility] [address] [id number] [address] [place] [address], [place] [address] 13 Jan, 2012 [facility] [address] [id number] [address] [place] [address], [place] [address] Dec, [facility] [address] [id number] [address] [place] [address], [place] [address] Dec, [facility] [address] [id number] [address] [place] [address], [place] [address] Dec, [facility] [address] [id number] [address] [place] [address], [place] [address] Dec, [facility] [place] [facility] [address] [id number] [address] [place] [address], [place] [address] Dec, [facility] [address] [id number] [address] [place] [address], [place] [address] Dec, [facility] [address] [id number] [address] [place] [address], [place] [address] Dec, [facility] [place] [facility] [address] [id number] [address] [place] [address], [place] [address] Dec, [facility] [address] [id number] [address] [place] [address], [place] [address] October, [facility] [address] [id number] [address] [place] [address], [place] [address] October, [facility] [address] [id number] [address] [place] [address], [place] [address] October, [facility] [address] [id number] [address] [place] [address], [place] [address] October, [facility] [address] [id number] [address] [place] [address], [place] [address] October, [facility] [place] [facility] [address] [id number] [address] [place] [address], [place] [address] October, [facility] [address] [id number] [address] [place] [address], [place] [address] Oct, [facility] [address] [id number] [address] [place] [address], [place] [address] Oct, [facility] [address] [id number] [address] [place] [address], [place] [address] Oct, [facility] [address] [id number] [address] [place] [address], [place] [address] Oct, [facility] [address] [id number] [address] [place] [address], [place] [address] Oct, [facility] [address] [id number] [address] [place] [address], [place] [address] Oct, [facility] [place] [facility] [address] [id number] [address] [place] [address], [place] [address] Oct, [facility] [address] [id number] [address] [place] [address], [place] [address] Aug, [facility] [address] [id number] [address] [place] [address], [place] [address] Aug, [facility] [address] [id number] [address] [place] [address], [place] [address] Aug, [facility] [address] [id number] [address] [place] [address], [place] [address] Aug, [facility] [address] [id number] [address] [place] [address], [place] [address] Aug, [facility] [address] [id number] [address] [place] [address], [place] [address] Aug, [facility] [address] [id number] [address] [place] [address], [place] [address] Aug, [facility] [address] [id number] [address] [place] [address], [place] [address] Aug, [facility] [address] [id number] [address] [place] [address], [place] [address] Aug, [facility] [address] [id number] [address] [place] [address], [place] [address] Jul, [facility] [address] [id number] [address] [place] [address], [place] [address] Jul, [facility] [address] [id number] [address] [place] [address], [place] [address] Jul, [facility] [address] [id number] [address] [place] [address], [place] [address] Jul, [facility] [address] [id number] [address] [place] [address], [place] [address] Jun, [facility] [address] [id number] [address] [place] [address], [place] [address] Jun, [facility] [address] [id number] [address] [place] [address], [place] [address] May, [facility] [address] [id number] [address] [place] [address], [place] [address] May, [facility] [address] [id number] [address] [place] [address], [place] [address] May, [facility] [address] [id number] [address] [place] [address], [place] [address] May, [facility] [address] [id number] [address] [place] [address], [place] [address] May, [facility] [address] [id number] [address] [place] [address], [place] [address] 28 Apr, 2011 [facility] [place] [facility] [address] [id number] [address] [place] [address], [place] [address] 28 Apr, 2011 [facility] [address] [id number] [address] [place] [address], [place] [address] 10 Apr, 2011 [facility] [place] [facility] [address] [id number] [address] [place] [address] Jan, [facility] [address] [id number] [address] [place] [address] Dec, [facility] [address] [id number] [address] [place] [id number] October, [facility] [address] [id number] [address] [place] [address] Jun, [facility] [address] [id number] [address] [place] [id number] Apr, [facility] [address] [id number] [address] [place] [id number] Apr, [facility] [address] [id number] [address] [place] [id number] Apr, [facility] [address] [id number] [address] [place] [id number] Jun, IMMUNIZATIONS No Known Immunizations SOCIAL HISTORY Never Assessed REASON FOR VISIT PLAN OF CARE VITAL SIGNS Height 69 in 2013-06-28 Weight 169.05 lbs 2013-06-28 Temperature 98.6 degrees Fahrenheit 2013-06-28 Heart Rate 76 bpm 2013-06-28 Respiratory Rate 22 2013-06-28 Blood pressure systolic 150 mmHg 2013-06-28 Blood pressure diastolic 84 mmHg 2013-06-28 MEDICATIONS Unknown Medications RESULTS No Results PROCEDURES [...]
[2020-01-25] MEDS ORDERED: QUET400T54 PO (13:22)
--- NOTE | 2020-01-25 13:22 | ED General ---
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 won't be able to get them filled until monday. patient was told to come in by pharmacy Nursing Sepsis Screen: No Definite Risk Source of Information: Patient Exam Limitations: No Limitations History of Present Illness Date Seen by Provider: Jan 25, 2020 Time Seen by Provider: 13:20 Allergies and Home Medications Allergies Coded Allergies: haloperidol (Unverified Allergy, Intermediate, 04/23/09) alcohol (Unverified Adverse Reaction, "FLIP OUT", 03/21/10) Home Medications Hydroxyzine HCl 25 Mg Tablet, 25 MG PO Q4H PRN for ANXIETY Prescribed by: MASTER GILMORE on 01/25/20 1420 Polyethylene Glycol 119 Gm Btl, 0 PO DAILY 17 GM Prescribed by: GEOVANY TA on 06/16/13 2332 Quetiapine Fumarate 400 Mg Tablet, 800 MG PO HS, (Reported) TAKES 2 (400MG) TABLETS AT BEDTIME Quetiapine Fumarate 400 Mg Tab.er.24h, 800 MG PO HS Prescribed by: MASTER GILMORE on 01/25/20 1322 Tramadol Hcl 50 Mg Tablet, 50 MG PO Q6H Prescribed by: GEOVANY TA on 06/16/13 2331 Patient Home Medication List Home Medication List Reviewed: Yes Review of Systems Review of Systems Constitutional: see HPI EENTM: see HPI Respiratory: no symptoms reported Cardiovascular: no symptoms reported Genitourinary: no symptoms reported Musculoskeletal: no symptoms reported Skin: no symptoms reported Psychiatric/Neurological: No Symptoms Reported Hematologic/Lymphatic: No Symptoms Reported Immunological/Allergic: no symptoms reported Past Uijkpdh-Pahfzv-Jycugy Hx Patient Social History Alcohol Use: Denies Use Recreational Drug Use: No (SMOKES 1PPD) Drug of Choice: smokes joints Type Used: Cigarettes 2nd Hand Smoke Exposure: Yes Recent Foreign Travel: No Contact w/Someone Who Travel: No Recent Infectious Disease Expo: No Recent Hopitalizations: No Immunizations Up To Date Date of Influenza Vaccine: May 03, 2013 Seasonal Allergies Seasonal Allergies: No Past Medical History Surgeries: Yes Orthopedic Respiratory: Yes COPD Cardiac: Yes Hypertension Neurological: No [employer]ER History: Menopausal Genitourinary: No Gastrointestinal: Yes Obstructive Bowel, Chronic Constipation Musculoskeletal: Yes (RESTLESS LEG) Chronic Back Pain Endocrine: No HEENT: Yes Hearing Impairment: Hard of Hearing Cancer: No Psychosocial: Yes (EXTENSIVE PSYCH ISSUES, POLYSUBSTANCE ABUSE. ) ADD/ADHD, Anxiety, Depression Integumentary: No Blood Disorders: No Adverse Reaction/Blood Tranf: No Family Medical History History of drug abuse Psychotic disorder Psychiatric Problems Physical Exam Vital Signs Vital Signs - First Documented 01/25/20 13:05 Temp 36.4 Pulse 108 Resp 18 B/P (MAP) 138/64 (88) Pulse Ox 95 Capillary Refill : Less Than 3 Seconds Height, Weight, BMI Height: 5'8.00" Weight: 170lbs. 0.0oz. 77.319694wi; 30.00 BMI Method:Stated General Appearance: No Apparent Distress, WD/WN Eyes: Bilateral Eye Normal Inspection, Bilateral Eye PERRL, Bilateral Eye EOMI HEENT: PERRL/EOMI, TMs Normal Respiratory: Lungs Clear, Normal Breath Sounds, No Accessory Muscle Use, No Respiratory Distress Cardiovascular: Regular Rate, Rhythm Gastrointestinal: Normal Bowel Sounds, Non Tender, Soft Extremity: Normal Capillary Refill, Normal Inspection Neurologic/Psychiatric: Alert, Oriented x3 Skin: Normal Color, Warm/Dry Progress/Results/Core Measures Suspected Sepsis Recent Fever Within 48 Hours: No Infection Criteria Present: None New/Unexplained Altered Menta: No Sepsis Screen: No Definite Risk SIRS Temperature: Pulse: 108 Respiratory Rate: 18 Blood Pressure 138 /64 Mean: 88 Results/Orders Vital Signs/I&O 01/25/20 01/25/20 13:05 14:30 Temp 36.4 36.4 Pulse 108 108 Resp 18 18 B/P (MAP) 138/64 (88) 138/64 (88) Pulse Ox 95 95 Capillary Refill : Less Than 3 Seconds Blood Pressure Mean: 88 Departure Impression Primary Impression: Encounter for medication refill Disposition: HOME, SELF-CARE Condition: Stable Departure-Patient Inst. Decision time for Depature: 13:20 Referrals: CHAZ MCDONALD DO (PCP) Primary Care Physician JAJA HALE (Family) Primary Care Physician Patient Instructions: NO INSTRUCTIONS GIVEN Add. Discharge Instructions: All discharge instructions reviewed with patient and/or family. Voiced understanding. Scripts Hydroxyzine HCl (Hydroxyzine HCl) 25 Mg Tablet 25 MG PO Q4H PRN for ANXIETY, #10 TAB Prov: MSATER GILMORE PHLEBOTOMIST 01/25/20 Quetiapine Fumarate (Quetiapine Fumarate ER) 400 Mg Tab.er.24h 800 MG PO HS, #10 TAB Prov: MASTER GILMORE APRN 01/25/20 MASTER GILMORE APRN Jan 25, 2020 13:22
--- OUTSIDE RECORDS SUMMARY | 2020-01-25 13:22 | XMS REPORT ---
Author Author Ana MCODNALD [facility] Address [address] [place] [address] Care Team Providers Care Multiple Coil Winder Name Role Phone CHAZ MCDONALD Unavailable PROBLEMS Type Condition ICD9-CM Code OZV12-DA Code Onset Dates Condition S tatus SNOMED Code Problem Chronic hepatitis C without hepatic coma B18.2 Active 060641873 Problem Cannabis abuse F12.10 Active 72660 009 Problem Bipolar 1 disorder F31.9 Active 3 03462512 Problem Attention deficit hyperactivity disorder (ADHD), combi luciano type F90.2 Active 57288969 Problem Attention deficit R41.840 Active 76 274046 Problem Hot flashes due to menopause N95.1 A ctive 048448520 Problem H/O laminectomy Z98.89 Active 1616 32376 Problem Other chronic pain G89.29 Active 8 7223249 Problem Anxiety disorder, unspecified type F41.9 Active 089829656 Problem Bipolar disorder, in partial remission, most rec ent episode hypomanic F31.71 Active [id number] ALLERGIES No Information ENCOUNTERS Encounter Location Date Diagnosis [facility] [address] [id number] [address] [place] [id number] Oct, [facility] [address] [facility] [id number] [address] [place] [address] Oct, [facility] [address] [facility] [id number] [address] [place] [phone] Aug, [facility] [address] [facility] [id number] [address] [place] [address] Jul, [facility] [address] [facility] [id number] [address] [place] [address] Jul, [facility] [address] [facility] [id number] [address] [place] [address] Apr, [facility] [address] [id number] [address] [place] [address] Mar, Hot flashes due to menopause N95.1 ; Anxiety disorder, unspecified type F41.9 ; Low back pain M54.5 and Encounter for immunization Z23 [facility] [address] [id number] [address] [place] [address] Dec, Other chronic pain G89.29 an d Low back pain M54.5 [facility] [address] [id number] [address] [place] [address] October, [facility] [address] [id number] [address] [place] [address] October, [facility] [address] [id number] [address] [place] [phone] October, [facility] [address] [facility] [id number] [address] [place] [address] October, Other chronic pain G89.29 an d Chronic hepatitis C without hepatic coma B18.2 [facility] [address] [id number] [address] [place] [address] Aug, Bipolar disorder, in partial remission, most recent episode hypomanic F31.71 ; Attention deficit hyperactivity disorder (ADHD), combined type F90.2 and Anxiety disorder, unspecified type F41.9 [facility] [address] [id number] [address] [place] [phone] Aug, [facility] [address] [id number] [address] [place] [address] Aug, Bipolar disorder, in partial remission, most recent episode hypomanic F31.71 [facility] [address] [id number] [address] [place] [address] Aug, [facility] [address] [facility] [id number] [address] [place] [address] Aug, Bipolar disorder, in partial remission, most recent episode hypomanic F31.71 [facility] [address] [id number] [address] [place] [address] Aug, Bipolar disorder, in partial remission, most recent episode hypomanic F31.71 ; Attention deficit hyperactivity disorder (ADHD), combined type F90.2 and Anxiety disorder, unspecified type F41.9 [facility] [address] [id number] [address] [place] [address] Aug, Low back pain M54.5 and Pain in left wrist M25.532 [facility] [address] [id number] [address] [place] [address] Aug, [facility] [address] [id number] [address] [place] [address] Jun, [facility] [address] [id number] [address] [place] [address] Apr, Bipolar disorder, in partial remission, most recent episode hypomanic F31.71 [facility] [address] [id number] [address] [place] [address] Apr, [facility] [address] [id number] [address] [place] [id number] Apr, Bipolar disorder, in partial remission, most recent episode hypomanic F31.71 ; Attention deficit hyperactivity disorder (ADHD), combined type F90.2 ; Anxiety disorder, unspecified type F41.9 and Other fci (current) drug therapy Z79.899 [facility] [address] [id number] [address] [place] [address] Apr, Bipolar disorder, in partial remission, most recent episode hypomanic F31.71 [facility] [address] [id number] [address] [place] [address] Apr, Bipolar disorder, in partial remission, most recent episode hypomanic F31.71 [facility] [address] [id number] [address] [place] [address] Mar, [facility] [address] [id number] [address] [place] [id number] Mar, Bipolar disorder, in partial remission, most recent episode hypomanic F31.71 ; Encounter for immunization Z23 and Low back pain M54.5 [facility] [address] [facility] [id number] [address] [place] [address] Mar, Bipolar disorder, in partial remission, most recent episode hypomanic F31.71 [facility] [address] [facility] [id number] [address] [place] [address] Mar, Bipolar disorder, in partial remission, most recent episode hypomanic F31.71 [facility] [address] [facility] [id number] [address] [place] [address] Jan, Bipolar disorder, in partial remission, most recent episode hypomanic F31.71 [facility] [address] [facility] [id number] [address] [place] [address] Jan, Bipolar disorder, in partial remission, most recent episode hypomanic F31.71 [facility] [address] [facility] [id number] [address] [place] [address] Dec, Bipolar disorder, in partial remission, most recent episode hypomanic F31.71 [facility] [address] [facility] [id number] [address] [place] [id number] Dec, Bipolar disorder, in partial remission, most recent episode hypomanic F31.71 ; Attention deficit hyperactivity disorder (ADHD), combined type F90.2 ; Anxiety disorder, unspecified type F41.9 and Other fci (current) drug therapy Z79.899 [facility] [address] [facility] [id number] [address] [place] [id number] Dec, Bipolar disorder, in partial remission, most recent episode hypomanic F31.71 [facility] [address] [facility] [id number] [address] [place] [phone] Dec, Bipolar disorder, in partial remission, most recent episode hypomanic F31.71 [facility] [address] [facility] [id number] [address] [place] [address] October, Bipolar disorder, in partial remission, most recent episode hypomanic F31.71 [facility] [address] [id number] [address] [place] [address] October, [facility] [address] [id number] [address] [place] [address] October, [facility] [address] [id number] [address] [place] [address] Oct, Bipolar disorder, in partial remission, most recent episode hypomanic F31.71 ; Attention deficit hyperactivity disorder (ADHD), combined type F90.2 ; Anxiety disorder, unspecified type F41.9 and Encounter for drug screening Z02.83 [facility] [address] [id number] [address] [place] [address] Oct, Bipolar disorder, in partial remission, most recent episode hypomanic F31.71 [facility] [address] [facility] [id number] [address] [place] [address] Oct, Bipolar disorder, in partial remission, most recent episode hypomanic F31.71 [facility] [address] [id number] [address] [place] [address] Aug, Bipolar disorder, in partial remission, most recent episode hypomanic F31.71 [facility] [address] [facility] [id number] [address] [place] [id number] Aug, Bipolar disorder, in partial remission, most recent episode hypomanic F31.71 [facility] [address] [facility] [id number] [address] [place] [address] Aug, Bipolar disorder, in partial remission, most recent episode hypomanic F31.71 [facility] [address] [facility] [id number] [address] [place] [address] Jul, Bipolar disorder, in partial remission, most recent episode hypomanic F31.71 ; Attention deficit hyperactivity disorder (ADHD), combined type F90.2 and Anxiety disorder, unspecified type F41.9 [facility] [address] [id number] [address] [place] [address] Jul, Bipolar disorder, in partial remission, most recent episode hypomanic F31.71 [facility] [address] [facility] [id number] [address] [place] [address] Jun, Bipolar disorder, in partial remission, most recent episode hypomanic F31.71 [facility] [address] [id number] [address] [place] [address] May, Bipolar disorder, in partial remission, most recent episode hypomanic F31.71 [facility] [address] [id number] [address] [place] [address] May, Bipolar disorder, in partial remission, most recent episode hypomanic F31.71 [facility] [address] [facility] [id number] [address] [place] [address] Apr, [facility] [address] [facility] [id number] [address] [place] [address] Apr, Bipolar disorder, in partial remission, most recent episode hypomanic F31.71 ; Attention deficit hyperactivity disorder (ADHD), combined type F90.2 ; Anxiety disorder, unspecified type F41.9 and Cannabis abuse F12.10 [facility] [address] [facility] [id number] [address] [place] [address] Apr, Attention deficit hyperactiv ity disorder (ADHD), combined type F90.2 [facility] [address] [facility] [id number] [address] [place] [address] Mar, Attention deficit hyperactiv ity disorder (ADHD), combined type F90.2 [facility] [address] [id number] [address] [place] [id number] 14 Mar, 2017 Anxiety disorder, unspecifie d type F41.9 [facility] [address] [facility] [id number] [address] [place] [phone] Jan, Attention deficit hyperactiv ity disorder (ADHD), combined type F90.2 [facility] [address] [facility] [id number] [address] [place] [id number] Jan, Anxiety disorder, unspecifie d type F41.9 [facility] [address] [facility] [id number] [address] [place] [address] Jan, Other chronic pain G89.29 ; Chronic hepatitis C without hepatic coma B18.2 and Bipolar 1 disorder F31.9 [facility] [address] [id number] [address] [place] [address] Dec, Attention deficit hyperactiv ity disorder (ADHD), combined type F90.2 [facility] [address] [id number] [address] [place] [address] Dec, Bipolar disorder, in partial remission, most recent episode hypomanic F31.71 ; Attention deficit hyperactivity disorder (ADHD), combined type F90.2 and Anxiety disorder, unspecified type F41.9 [facility] [address] [facility] [id number] [address] [place] [address] Dec, Bipolar disorder, in partial remission, most recent episode hypomanic F31.71 ; Attention deficit hyperactivity disorder (ADHD), combined type F90.2 and Anxiety disorder, unspecified type F41.9 [facility] [address] [facility] [id number] [address] [place] [address] Dec, Bipolar 1 disorder F31.9 and Attention deficit R41.840 [facility] [address] [facility] [id number] [address] [place] [address] Oct, Other chronic pain G89.29 ; Alopecia L65.9 and Screening, lipid Z13.220 [facility] [address] [facility] [id number] [address] [place] [address] Oct, [facility] [address] [facility] [id number] [address] [place] [address] Aug, [facility] [address] [facility] [id number] [address] [place] [address] Aug, Eustachian tube dysfunction, right H69.81 ; Vertigo R42 and Other chronic pain G89.29 [facility] [address] [id number] [address] [place] [id number] Aug, [facility] [address] [id number] [address] [place] [id number] Jun, [facility] [address] [id number] [address] [place] [address] Jun, Low back pain M54.5 and Othe r chronic pain G89.29 [facility] [address] [id number] [address] [place] [address] Jun, [facility] [address] [id number] [address] [place] [address] May, [facility] [address] [id number] [address] [place] [phone] Jan, [facility] [address] [id number] [address] [place] [address] Dec, [facility] [address] [id number] [address] [place] [id number] Dec, [facility] [address] [id number] [address] [place] [phone] Jun, [facility] [address] [facility] [id number] [address] [place] [address] Apr, Eustachian tube dysfunction, unspecified laterality H69.80 ; Hot flashes N95.1 and Encounter for immunization Z23 [facility] [address] [id number] [address] [place] [address] Jan, [facility] [address] [id number] [address] [place] [id number] Jan, [facility] [address] [id number] [address] [place] [address] Jan, [facility] [address] [id number] [address] [place] [address] Jan, [facility] [address] [id number] [address] [place] [address] Jan, Encounter to establish care V65.8 ; Bipolar 1 disorder 296.7 ; Abdominal pain 789.00 ; Constipation 564.00 ; Hard of hearing 389.9 and Drug abuse 305.90 [facility] [address] [id number] [address] [place] [address] Dec, [facility] [address] [id number] [address] [place] [address] October, [facility] [address] [id number] [address] [place] [id number] October, [facility] [address] [id number] [address] [place] [address] Oct, [facility] [address] [id number] [address] [place] [phone] Oct, [facility] [address] [id number] [address] [place] [id number] Oct, [facility] [address] [id number] [address] [place] [phone] Aug, [facility] [address] [id number] [address] [place] [address] Aug, [facility] [address] [id number] [address] [place] [phone] Aug, [facility] [address] [id number] [address] [place] [id number] Aug, [facility] [address] [id number] [address] [place] [address] Aug, [facility] [address] [id number] [address] [place] [address] Aug, [facility] [address] [id number] [address] [place] [address] Aug, [facility] [address] [id number] [address] [place] [address], [place] [address] Aug, 2014 [facility] [address] [id number] [address] [place] [address], [place] [address] Aug, 2014 [facility] [address] [id number] [address] [place] [address], [place] [address] Aug, 2014 [facility] [address] [id number] [address] [place] [address], [place] [address] Aug, 2014 [facility] [address] [id number] [address] [place] [address], [place] [address] Aug, 2014 [facility] [address] [id number] [address] [place] [address], [place] [address] Aug, 2014 [facility] [address] [id number] [address] [place] [address], [place] [address] Aug, 2014 [facility] [address] [id number] [address] [place] [address], [place] [address] Aug, [facility] [address] [id number] [address] [place] [address], [place] [address] Jul, [facility] [address] [id number] [address] [place] [address], [place] [address] Jul, [facility] [address] [id number] [address] [place] [address], [place] [address] Jul, [facility] [address] [id number] [address] [place] [address], [place] [address] Jul, [facility] [address] [id number] [address] [place] [address], [place] [address] Jul, [facility] [address] [id number] [address] [place] [address], [place] [address] Jul, [facility] [address] [id number] [address] [place] [address], [place] [address] Jul, [facility] [address] [id number] [address] [place] [address], [place] [address] Jul, [facility] [address] [id number] [address] [place] [address], [place] [address] Jun, [facility] [address] [id number] [address] [place] [address], [place] [address] Jun, [facility] [address] [id number] [address] [place] [address], [place] [address] Jun, [facility] [address] [id number] [address] [place] [address], [place] [address] Jun, [facility] [address] [id number] [address] [place] [address], [place] [address] Jun, [facility] [address] [id number] [address] [place] [address], [place] [address] Jun, [facility] [address] [id number] [address] [place] [address], [place] [address] Jun, [facility] [address] [id number] [address] [place] [address], [place] [address] Jun, [facility] [address] [id number] [address] [place] [address], [place] [address] Jun, [facility] [address] [id number] [address] [place] [address], [place] [address] Jun, [facility] [address] [id number] [address] [place] [address], [place] [address] Jun, [facility] [address] [id number] [address] [place] [address], [place] [address] May, [facility] [address] [id number] [address] [place] [address], [place] [address] May, [facility] [address] [id number] [address] [place] [address], [place] [address] May, [facility] [address] [id number] [address] [place] [address], [place] [address] May, [facility] [address] [id number] [address] [place] [address], [place] [address] May, [facility] [address] [id number] [address] [place] [address], [place] [address] May, [facility] [address] [id number] [address] [place] [address], [place] [address] May, [facility] [address] [id number] [address] [place] [address], [place] [address] Apr, [facility] [address] [id number] [address] [place] [address], [place] [address] Apr, [facility] [address] [id number] [address] [place] [address], [place] [address] Apr, [facility] [address] [id number] [address] [place] [address], [place] [address] Apr, [facility] [address] [id number] [address] [place] [address], [place] [address] Apr, [facility] [address] [id number] [address] [place] [address], [place] [address] Apr, [facility] [address] [id number] [address] [place] [address], [place] [address] 29 Mar, 2014 [facility] [address] [id number] [address] [place] [address], [place] [address] 29 Mar, 2014 [facility] [address] [id number] [address] [place] [address], [place] [address] Mar, [facility] [address] [id number] [address] [place] [address], [place] [address] Mar, [facility] [address] [id number] [address] [place] [address], [place] [address] Mar, [facility] [address] [id number] [address] [place] [address], [place] [address] Mar, [facility] [address] [id number] [address] [place] [address], [place] [address] Jan, [facility] [address] [id number] [facility] [address] Jan, [facility] [address] [id number] [facility] [place] [address] Jan, [facility] [address] [id number] [address] [place] [address], [place] [address] Jan, [facility] [address] [id number] [address] [place] [address], [place] [address] Dec, [facility] [address] [id number] [address] [place] [address], [place] [address] Dec, [facility] [address] [id number] [address] [place] [address], [place] [address] Dec, [facility] [address] [id number] [address] [place] [address], [place] [address] Dec, [facility] [address] [id number] [address] [place] [address], [place] [address] Dec, [facility] [address] [id number] [address] [place] [address], [place] [address] Dec, [facility] [address] [id number] [address] [place] [address], [place] [address] Dec, [facility] [address] [id number] [address] [place] [address], [place] [address] Dec, [facility] [address] [id number] [address] [place] [address], [place] [address] Dec, [facility] [address] [id number] [address] [place] [address], [place] [address] Dec, [facility] [address] [id number] [address] [place] [address], [place] [address] Dec, [facility] [address] [id number] [address] [place] [address], [place] [address] Dec, [facility] [address] [id number] [address] [place] [address], [place] [address] October, [facility] [address] [id number] [address] [place] [address], [place] [address] October, [facility] [address] [id number] [address] [place] [address], [place] [address] October, [facility] [address] [id number] [address] [place] [address], [place] [address] October, [facility] [address] [id number] [address] [place] [address], [place] [address] October, [facility] [address] [id number] [address] [place] [address], [place] [address] October, [facility] [address] [id number] [address] [place] [address], [place] [address] Oct, [facility] [address] [id number] [address] [place] [address], [place] [address] Oct, [facility] [address] [id number] [address] [place] [address], [place] [address] Oct, [facility] [address] [id number] [address] [place] [address], [place] [address] Oct, [facility] [address] [id number] [address] [place] [address], [place] [address] Oct, [facility] [address] [id number] 33 [place] [address], [place] [address] Oct, [facility] [address] [id number] [address] [place] [address], [place] [address] Oct, [facility] [address] [id number] [address] [place] [address], [place] [address] Oct, [facility] [address] [id number] [address] [place] [address], [place] [address] Oct, [facility] [address] [id number] [address] [place] [address], [place] [address] Oct, [facility] [address] [id number] [facility] [address] 08 Oct, 2013 [facility] [address] [id number] [address] [place] [address], [place] [address] 08 Oct, 2013 [facility] [address] [id number] [address] [place] [address], [place] [address] 15 Aug, 2013 [facility] [address] [id number] [address] [place] [address], [place] [address] 15 Aug, 2013 [facility] [address] [id number] [address] [place] [address], [place] [address] Aug, [facility] [address] [id number] [address] [place] [address], [place] [address] Aug, [facility] [address] [id number] [address] [place] [address], [place] [address] 05 Aug, 2013 [facility] [address] [id number] [address] [place] [address], [place] [address] 05 Aug, 2013 [facility] [address] [id number] [address] [place] [address], [place] [address] 04 Aug, 2013 [facility] [address] [id number] [address] [place] [address], [place] [address] Aug, [facility] [address] [id number] [address] [place] [address], [place] [address] Aug, [facility] [address] [id number] [address] [place] [address], [place] [address] Aug, [facility] [address] [id number] [address] [place] [address], [place] [address] Aug, [facility] [address] [id number] [address] [place] [address], [place] [address] Aug, [facility] [address] [id number] [address] [place] [address], [place] [address] Aug, [facility] [address] [id number] [address] [place] [address], [place] [address] 20 Aug, 2013 [facility] [address] [id number] [address] [place] [address], [place] [address] 14 Aug, 2013 [facility] [address] [id number] [address] [place] [address], [place] [address] 14 Aug, 2013 [facility] [address] [id number] [address] [place] [address], [place] [address] 14 Aug, 2013 [facility] [address] [id number] [address] [place] [address], [place] [address] 14 Aug, 2013 [facility] [address] [id number] [address] [place] [address], [place] [address] 07 Aug, 2013 [facility] [address] [id number] [address] [place] [address], [place] [address] 07 Aug, 2013 [facility] [address] [id number] [address] [place] [address], [place] [address] 06 Aug, 2013 [facility] [address] [id number] [address] [place] [address], [place] [address] 06 Aug, 2013 [facility] [address] [id number] [address] [place] [address], [place] [address] 04 Aug, 2013 [facility] [address] [id number] [address] [place] [address], [place] [address] 04 Aug, 2013 [facility] [address] [id number] [address] [place] [address], [place] [address] Aug, [facility] [address] [id number] [address] [place] [address], [place] [address] Jul, [facility] [address] [id number] [address] [place] [address], [place] [address] Jul, [facility] [address] [id number] [address] [place] [address], [place] [address] Jul, [facility] [address] [id number] [address] [place] [address], [place] [address] Jul, [facility] [address] [id number] [address] [place] [address], [place] [address] Jul, [facility] [address] [id number] [address] [place] [address], [place] [address] Jul, [facility] [address] [id number] [address] [place] [address], [place] [address] Jul, [facility] [address] [id number] [address] [place] [address], [place] [address] Jul, [facility] [address] [id number] [address] [place] [address], [place] [address] Jul, [facility] [address] [id number] [address] [place] [address], [place] [address] Jul, [facility] [address] [id number] [address] [place] [address], [place] [address] Jul, [facility] [address] [id number] [address] [place] [address], [place] [address] Jul, [facility] [address] [id number] [address] [place] [address], [place] [address] Jul, [facility] [address] [id number] [address] [place] [address], [place] [address] Jul, [facility] [address] [id number] [address] [place] [address], [place] [address] Jul, [facility] [address] [id number] [address] [place] [address], [place] [address] Jul, [facility] [address] [id number] [address] [place] [address], [place] [address] Jul, [facility] [address] [id number] [address] [place] [address], [place] [address] Jul, [facility] [address] [id number] [address] [place] [address], [place] [address] Jul, [facility] [address] [id number] [address] [place] [address], [place] [address] Jul, [facility] [address] [id number] [address] [place] [address], [place] [address] Jun, [facility] [address] [id number] [address] [place] [address], [place] [address] Jun, [facility] [address] [id number] [address] [place] [address], [place] [address] Jun, [facility] [address] [id number] [address] [place] [address], [place] [address] Jun, [facility] [address] [id number] [address] [place] [address], [place] [address] Jun, [facility] [address] [id number] [address] [place] [address], [place] [address] Jun, [facility] [address] [id number] [address] [place] [address], [place] [address] Jun, [facility] [address] [id number] [address] [place] [address], [place] [address] Jun, [facility] [address] [id number] [address] [place] [address], [place] [address] Jun, [facility] [address] [id number] [address] [place] [address], [place] [address] Jun, [facility] [address] [id number] [address] [place] [address], [place] [address] Jun, [facility] [address] [id number] [address] [place] [address], [place] [address] Jun, [facility] [address] [id number] [address] [place] [address], [place] [address] Jun, [facility] [address] [id number] [address] [place] [address], [place] [address] Jun, [facility] [address] [id number] [address] [place] [address], [place] [address] Jun, [facility] [address] [id number] [address] [place] [address], [place] [address] 18 Jun, 2013 [facility] [address] [id number] [address] [place] [address], [place] [address] 18 Jun, 2013 [facility] [address] [id number] [address] [place] [address], [place] [address] 17 Jun, 2013 [facility] [address] [id number] [address] [place] [address], [place] [address] 17 Jun, 2013 [facility] [address] [id number] [address] [place] [address], [place] [address] 13 Jun, 2013 [facility] [address] [id number] [address] [place] [address], [place] [address] 12 Jun, 2013 [facility] [address] [id number] [address] [place] [address], [place] [address] 12 Jun, 2013 [facility] [address] [id number] [address] [place] [address], [place] [address] 09 Jun, 2013 [facility] [address] [id number] [address] [place] [address], [place] [address] 05 Jun, 2013 [facility] [address] [id number] [address] [place] [address], [place] [address] 05 Jun, 2013 [facility] [address] [id number] [address] [place] [address], [place] [address] 04 Jun, 2013 [facility] [address] [id number] [address] [place] [address], [place] [address] 04 Jun, 2013 [facility] [address] [id number] [address] [place] [address], [place] [address] 17 May, 2013 [facility] [address] [id number] [address] [place] [address], [place] [address] 17 May, 2013 [facility] [address] [id number] [address] [place] [address], [place] [address] May, [facility] [address] [id number] [address] [place] [address], [place] [address] May, [facility] [address] [id number] [address] [place] [address], [place] [address] May, [facility] [address] [id number] [address] [place] [address], [place] [address] May, [facility] [address] [id number] [address] [place] [address], [place] [address] Apr, [facility] [address] [id number] [address] [place] [address], [place] [address] Apr, [facility] [address] [id number] [address] [place] [address], [place] [address] Apr, [facility] [address] [id number] [address] [place] [address], [place] [address] Apr, [facility] [address] [id number] [address] [place] [address], [place] [address] Apr, [facility] [address] [id number] [address] [place] [address], [place] [address] Apr, [facility] [address] [id number] [address] [place] [address], [place] [address] Apr, [facility] [address] [id number] [address] [place] [address] Apr, [facility] [address] [id number] [address] [place] [address] 26 Mar, 2013 [facility] [address] [id number] [address] [place] [address] 24 Sep, 2012 [facility] [address] [id number] [address] [place] [address], [place] [address] 17 Mar, 2013 [facility] [address] [id number] [address] [place] [address] 17 Mar, 2012 [facility] [address] [id number] [address] [place] [address] 11 Mar, 2012 [facility] [address] [id number] [address] [place] [address] 10 Mar, 2013 [facility] [address] [id number] [address] [place] [address], [place] [address] 05 Mar, 2013 [facility] [address] [id number] [address] [place] [address], [place] [address] 04 Mar, 2013 [facility] [address] [id number] [address] [place] [address], [place] [address] Jan, [facility] [address] [id number] [address] [place] [address], [place] [address] Jan, [facility] [address] [id number] [address] [place] [address], [place] [address] Jan, [facility] [address] [id number] [address] [place] [address], [place] [address] Jan, [facility] [address] [id number] [address] [place] [address], [place] [address] Jan, [facility] [address] [id number] [address] [place] [address], [place] [address] Jan, [facility] [address] [id number] [address] [place] [address], [place] [address] Dec, [facility] [address] [id number] [address] [place] [address], [place] [address] Dec, [facility] [address] [id number] [address] [place] [address], [place] [address] Dec, [facility] [address] [id number] [address] [place] [address], [place] [address] Dec, [facility] [address] [id number] [address] [place] [address], [place] [address] 18 Dec, 2012 [facility] [address] [id number] [address] [place] [address], [place] [address] 17 Dec, 2012 [facility] [address] [id number] [address] [place] [address], [place] [address] 16 Dec, 2012 [facility] [address] [id number] [address] [place] [address], [place] [address] 16 Dec, 2012 [facility] [address] [id number] [address] [place] [address], [place] [address] 15 Dec, 2012 [facility] [address] [id number] [address] [place] [address], [place] [address] 10 Dec, 2012 [facility] [address] [id number] [address] [place] [address], [place] [address] Dec, [facility] [address] [id number] [address] [place] [address], [place] [address] Dec, [facility] [address] [id number] [address] [place] [address], [place] [address] Dec, [facility] [address] [id number] [address] [place] [address], [place] [address] Dec, [facility] [address] [id number] [address] [place] [address], [place] [address] Dec, [facility] [address] [id number] [address] [place] [address], [place] [address] Dec, [facility] [address] [id number] [address] [place] [address], [place] [address] October, [facility] [address] [id number] [address] [place] [address], [place] [address] October, [facility] [address] [id number] [address] [place] [address], [place] [address] October, [facility] [address] [id number] [address] [place] [address], [place] [address] October, [facility] [address] [id number] [address] [place] [address], [place] [address] October, [facility] [address] [id number] [address] [place] [address], [place] [address] October, [facility] [address] [id number] [address] [place] [address], [place] [address] October, [facility] [address] [id number] [address] [place] [address], [place] [address] Oct, [facility] [address] [id number] [address] [place] [address], [place] [address] Oct, [facility] [address] [id number] [address] [place] [address], [place] [address] Oct, [facility] [address] [id number] [address] [place] [address], [place] [address] Oct, [facility] [address] [id number] [address] [place] [address], [place] [address] Oct, [facility] [address] [id number] [address] [place] [address], [place] [address] 18 Oct, 2012 [facility] [address] [id number] [address] [place] [address], [place] [address] Oct, [facility] [address] [id number] [address] [place] [address], [place] [address] 15 Oct, 2012 [facility] [address] [id number] [address] [place] [address], [place] [address] Oct, [facility] [address] [id number] [address] [place] [address], [place] [address] Oct, [facility] [address] [id number] [address] [place] [address], [place] [address] Oct, [facility] [address] [id number] [address] [place] [address], [place] [address] Oct, [facility] [address] [id number] [address] [place] [address], [place] [address] Aug, [facility] [address] [id number] [address] [place] [address], [place] [address] Aug, [facility] [address] [id number] [address] [place] [address], [place] [address] Aug, [facility] [address] [id number] [address] [place] [address], [place] [address] 06 Aug, 2012 [facility] [address] [id number] [address] [place] [address], [place] [address] 05 Aug, 2012 [facility] [address] [id number] [address] [place] [address], [place] [address] 05 Aug, 2012 [facility] [address] [id number] [address] [place] [address], [place] [address] 20 Aug, 2012 [facility] [address] [id number] [address] [place] [address], [place] [address] 14 Aug, 2012 [facility] [address] [id number] [address] [place] [address], [place] [address] 12 Aug, 2012 [facility] [address] [id number] [address] [place] [address], [place] [address] 11 Aug, 2012 [facility] [address] [id number] [address] [place] [address], [place] [address] 29 Jul, 2012 [facility] [address] [id number] [address] [place] [address], [place] [address] 15 Jul, 2012 [facility] [address] [id number] [address] [place] [address], [place] [address] 08 Jul, 2012 [facility] [address] [id number] [address] [place] [address], [place] [address] 20 Jun, 2012 [facility] [address] [id number] [address] [place] [address], [place] [address] 18 Jun, 2012 [facility] [address] [id number] [address] [place] [address], [place] [address] 18 Jun, 2012 [facility] [address] [id number] [address] [place] [address], [place] [address] 18 Jun, 2012 [facility] [address] [id number] [address] [place] [address], [place] [address] 18 Jun, 2012 [facility] [address] [id number] [address] [place] [address], [place] [address] 14 Jun, 2012 [facility] [address] [id number] [address] [place] [address], [place] [address] 14 Jun, 2012 [facility] [address] [id number] [address] [place] [address], [place] [address] 13 Jun, 2012 [facility] [address] [id number] [address] [place] [address], [place] [address] 13 Jun, 2012 [facility] [address] [id number] [address] [place] [address], [place] [address] 11 Jun, 2012 [facility] [address] [id number] [address] [place] [address], [place] [address] 11 Jun, 2012 [facility] [address] [id number] [address] [place] [address], [place] [address] 11 Jun, 2012 [facility] [address] [id number] [address] [place] [address], [place] [address] 11 Jun, 2012 [facility] [address] [id number] [address] [place] [address], [place] [address] 07 Jun, 2012 [facility] [address] [id number] [address] [place] [address], [place] [address] Jun, [facility] [address] [id number] [address] [place] [address], [place] [address] 06 Jun, 2012 [facility] [address] [id number] [address] [place] [address], [place] [address] Jun, [facility] [address] [id number] [address] [place] [address], [place] [address] Jun, [facility] [address] [id number] [address] [place] [address], [place] [address] Jun, [facility] [address] [id number] [address] [place] [address], [place] [address] 05 Jun, 2012 [facility] [address] [id number] [address] [place] [address], [place] [address] 05 Jun, 2012 [facility] [address] [id number] [address] [place] [id number] Jun, [facility] [address] [id number] [address] [place] [address], [place] [address] Jun, [facility] [address] [id number] [address] [place] [address] May, [facility] [address] [id number] [address] [place] [id number] May, [facility] [address] [id number] [address] [place] [id number] May, [facility] [address] [id number] [address] [place] [address], [place] [address] May, [facility] [address] [id number] [address] [place] [address] May, [facility] [address] [id number] [address] [place] [id number] May, [facility] [address] [id number] [address] [place] [id number] May, [facility] [address] [id number] [address] [place] [id number] May, [facility] [address] [id number] [address] [place] [id number] Apr, [facility] [address] [id number] [address] [place] [id number] 30 Apr, 2012 [facility] [address] [id number] [address] [place] [id number] 29 Apr, 2012 [facility] [address] [id number] [address] [place] [id number] Apr, [facility] [address] [id number] [address] [place] [id number] Apr, [facility] [address] [id number] [address] [place] [address] Apr, [facility] [address] [id number] [address] [place] [address], [place] [address] Apr, [facility] [address] [id number] [address] [place] [address], [place] [address] Apr, [facility] [address] [id number] [address] [place] [address], [place] [address] Apr, [facility] [address] [id number] [address] [place] [address], [place] [address] 08 Apr, 2012 [facility] [address] [id number] [address] [place] [address], [place] [address] Apr, [facility] [address] [id number] [address] [place] [address], [place] [address] Apr, [facility] [address] [id number] [address] [place] [address], [place] [address] 19 Mar, 2012 [facility] [address] [id number] [address] [place] [address], [place] [address] 18 Mar, 2012 [facility] [address] [id number] [address] [place] [address], [place] [address] Mar, [facility] [address] [id number] [address] [place] [address], [place] [address] Mar, [facility] [address] [id number] [address] [place] [id number] Mar, [facility] [facility] [address] [id number] [address] [place] [id number] Mar, [facility] [address] [id number] [address] [place] [id number] Mar, [facility] [address] [id number] [address] [place] [address], [place] [address] Jan, [facility] [address] [id number] [address] [place] [address], [place] [address] Jan, [facility] [address] [id number] [address] [place] [address] [id number] Jan, [facility] [address] [id number] [address] [place] [address], [place] [id number] Jan, [facility] [address] [id number] [address] [place] [address], [place] [address] Jan, [facility] [address] [id number] [address] [place] [address], [place] [address] Jan, [facility] [address] [id number] [address] [place] [address], [place] [address] Jan, [facility] [address] [id number] [address] [place] [address], [place] [address] Jan, [facility] [address] [id number] [address] [place] [address], [place] [address] Jan, [facility] [address] [id number] [address] [place] [address], [place] [address] Jan, [facility] [address] [id number] [address] [place] [address], [place] [address] Jan, [facility] [address] [id number] [address] [place] [address], [place] [address] Dec, [facility] [address] [id number] [address] [place] [address], [place] [address] Dec, [facility] [address] [id number] [address] [place] [address], [place] [address] Dec, [facility] [address] [id number] [address] [place] [address], [place] [address] Dec, [facility] [address] [id number] [address] [place] [address], [place] [address] Dec, [facility] [address] [id number] [address] [place] [address], [place] [address] Dec, [facility] [address] [id number] [address] [place] [address], [place] [address] Dec, [facility] [address] [id number] [address] [place] [address], [place] [address] 17 Jan, 2012 [facility] [address] [id number] [address] [place] [address], [place] [address] 16 Jan, 2012 [facility] [address] [id number] [address] [place] [address], [place] [address] Dec, [facility] [address] [id number] [address] [place] [address], [place] [address] Dec, [facility] [address] [id number] [address] [place] [address], [place] [address] Dec, [facility] [address] [id number] [address] [place] [address], [place] [address] Dec, [facility] [address] [id number] [address] [place] [address], [place] [address] Dec, [facility] [address] [id number] [address] [place] [address], [place] [address] Dec, [facility] [address] [id number] [address] [place] [address], [place] [address] Dec, [facility] [address] [id number] [address] [place] [address], [place] [address] 15 Dec, 2011 [facility] [address] [id number] [address] [place] [address], [place] [address] Dec, [facility] [address] [id number] [address] [place] [address], [place] [address] 05 Dec, 2011 [facility] [address] [id number] [address] [place] [address], [place] [address] October, [facility] [address] [id number] [address] [place] [address], [place] [address] October, [facility] [address] [id number] [address] [place] [address], [place] [address] October, [facility] [address] [id number] [address] [place] [address], [place] [address] October, [facility] [address] [id number] [address] [place] [address], [place] [address] October, [facility] [address] [id number] [address] [place] [address], [place] [address] October, [facility] [address] [id number] [address] [place] [address], [place] [address] Oct, [facility] [address] [id number] [address] [place] [address], [place] [address] Oct, [facility] [address] [id number] [address] [place] [address], [place] [address] Oct, [facility] [address] [id number] [address] [place] [address], [place] [address] Oct, [facility] [address] [id number] [address] [place] [address], [place] [address] Oct, [facility] [address] [id number] [address] [place] [address], [place] [address] Oct, [facility] [address] [id number] [address] [place] [address], [place] [address] Oct, [facility] [address] [id number] [address] [place] [address], [place] [address] Aug, [facility] [address] [id number] [address] [place] [address], [place] [address] Aug, [facility] [address] [id number] [address] [place] [address], [place] [address] Aug, [facility] [address] [id number] [address] [place] [address], [place] [address] Aug, [facility] [address] [id number] [address] [place] [address], [place] [address] Aug, [facility] [address] [id number] [address] [place] [address], [place] [address] Aug, [facility] [address] [id number] [address] [place] [address], [place] [address] Aug, [facility] [address] [id number] [address] [place] [address], [place] [address] Aug, [facility] [address] [id number] [address] [place] [address], [place] [address] Aug, [facility] [address] [id number] [address] [place] [address], [place] [address] Jul, [facility] [address] [id number] [address] [place] [address], [place] [address] Jul, [facility] [address] [id number] [address] [place] [address], [place] [address] Jul, [facility] [address] [id number] [address] [place] [address], [place] [address] Jul, [facility] [address] [id number] [address] [place] [address], [place] [address] Jun, [facility] [address] [id number] [address] [place] [address], [place] [address] Jun, [facility] [address] [id number] [address] [place] [address], [place] [address] May, [facility] [address] [id number] [address] [place] [address], [place] [address] May, [facility] [address] [id number] [address] [place] [address], [place] [address] May, [facility] [address] [id number] [address] [place] [address], [place] [address] May, [facility] [address] [id number] [address] [place] [address], [place] [address] May, [facility] [address] [id number] [address] [place] [address], [place] [address] Apr, [facility] [address] [id number] [address] [place] [address], [place] [address] Apr, [facility] [address] [id number] [address] [place] [address] Apr, [facility] [address] [id number] [address] [place] [address] Jan, [facility] [address] [id number] [address] [place] [address] Dec, [facility] [address] [id number] [address] [place] [address] October, [facility] [address] [id number] [address] [place] [address] Jun, [facility] [address] [id number] [address] [place] [address] Apr, [facility] [address] [id number] [address] [place] [address] Apr, [facility] [address] [facility] [id number] [address] [place] [id number] Apr, [facility] [address] [id number] [address] [place] [address] Jun, IMMUNIZATIONS No Known Immunizations SOCIAL HISTORY [...]
--- OUTSIDE RECORDS SUMMARY | 2020-01-25 13:22 | XMS REPORT ---
Author Author Moreno Ana Doctor Organization [facility] Address Unknown Phone Unavailable Care Team Providers Care Ethics Manager Name Role Phone Migration, Doctor Unavailable Unavailable PROBLEMS Type Condition ICD9-CM Code [id number] Code Onset Dates Condition S tatus SNOMED Code Problem Chronic hepatitis C without hepatic coma B18.2 Active 355421729 Problem Cannabis abuse F12.10 Active 62859 009 Problem Bipolar 1 disorder F31.9 Active 3 46708971 Problem Attention deficit hyperactivity disorder (ADHD), combi luciano type F90.2 Active 69195838 Problem Attention deficit R41.840 Active 76 178745 Problem Hot flashes due to menopause N95.1 A ctive 725008443 Problem H/O laminectomy Z98.89 Active 1616 84433 Problem Other chronic pain G89.29 Active 8 0956410 Problem Anxiety disorder, unspecified type F41.9 Active 325114313 Problem Bipolar disorder, in partial remission, most rec ent episode hypomanic F31.71 Active [id number] ALLERGIES No Information ENCOUNTERS Encounter Location Date Diagnosis [facility] [address] [id number] [address] [place] [id number] Oct, [facility] [address] [facility] [id number] [address] [place] [address] Oct, [facility] [address] [facility] [id number] [address] [place] [address] Aug, [facility] [address] [facility] [id number] [address] [place] [address] Jul, [facility] [address] [facility] [id number] [address] [place] [address] Jul, [facility] [address] [facility] [id number] [address] [place] [address] Apr, [facility] [address] [facility] [id number] [address] [place] [address] Mar, Hot flashes due to menopause N95.1 ; Anxiety disorder, unspecified type F41.9 ; Low back pain M54.5 and Encounter for immunization Z23 [facility] [address] [facility] [id number] [address] [place] [address] Dec, Other chronic pain G89.29 an d Low back pain M54.5 [facility] [address] [facility] [id number] [address] [place] [address] October, [facility] [address] [facility] [id number] [address] [place] [address] October, [facility] [address] [facility] [id number] [address] [place] [address] October, [facility] [address] [facility] [id number] [address] [place] [address] October, Other chronic pain G89.29 an d Chronic hepatitis C without hepatic coma B18.2 [facility] [address] [facility] [id number] [address] [place] [address] Aug, Bipolar disorder, in partial remission, most recent episode hypomanic F31.71 ; Attention deficit hyperactivity disorder (ADHD), combined type F90.2 and Anxiety disorder, unspecified type F41.9 [facility] [address] [facility] [id number] [address] [place] [address] Aug, [facility] [address] [facility] [id number] [address] [place] [address] Aug, Bipolar disorder, in partial remission, most recent episode hypomanic F31.71 [facility] [address] [facility] [id number] [address] [place] [address] Aug, [facility] [address] [facility] [id number] [address] [place] [address] Aug, Bipolar disorder, in partial remission, most recent episode hypomanic F31.71 [facility] [address] [facility] [id number] [address] [place] [address] Aug, Bipolar disorder, in partial remission, most recent episode hypomanic F31.71 ; Attention deficit hyperactivity disorder (ADHD), combined type F90.2 and Anxiety disorder, unspecified type F41.9 [facility] [address] [id number] [address] [place] [address] Aug, Low back pain M54.5 and Pain in left wrist M25.532 [facility] [address] [id number] [address] [place] [address] Aug, [facility] [address] [id number] [address] [place] [address] Jun, [facility] [address] [id number] [address] [place] [address] Apr, Bipolar disorder, in partial remission, most recent episode hypomanic F31.71 [facility] [address] [id number] [address] [place] [address] Apr, [facility] [address] [id number] [address] [place] [address] Apr, Bipolar disorder, in partial remission, most recent episode hypomanic F31.71 ; Attention deficit hyperactivity disorder (ADHD), combined type F90.2 ; Anxiety disorder, unspecified type F41.9 and Other long term care phlebotomist (current) drug therapy Z79.899 [facility] [address] [id number] [address] [place] [address] Apr, Bipolar disorder, in partial remission, most recent episode hypomanic F31.71 [facility] [address] [id number] [address] [place] [address] Apr, Bipolar disorder, in partial remission, most recent episode hypomanic F31.71 [facility] [address] [id number] [address] [place] [address] Mar, [facility] [address] [id number] [address] [place] [address] Mar, Bipolar disorder, in partial remission, most recent episode hypomanic F31.71 ; Encounter for immunization Z23 and Low back pain M54.5 [facility] [address] [id number] [address] [place] [address] Mar, Bipolar disorder, in partial remission, most recent episode hypomanic F31.71 [facility] [address] [id number] [address] [place] [address] Mar, Bipolar disorder, in partial remission, most recent episode hypomanic F31.71 [facility] [address] [id number] [address] [place] [address] Jan, Bipolar disorder, in partial remission, most recent episode hypomanic F31.71 [facility] [address] [id number] [address] [place] [address] Jan, Bipolar disorder, in partial remission, most recent episode hypomanic F31.71 [facility] [address] [facility] [id number] [address] [place] [address] Dec, Bipolar disorder, in partial remission, most recent episode hypomanic F31.71 [facility] [address] [id number] [address] [place] [address] Dec, Bipolar disorder, in partial remission, most recent episode hypomanic F31.71 ; Attention deficit hyperactivity disorder (ADHD), combined type F90.2 ; Anxiety disorder, unspecified type F41.9 and Other penitentiary (current) drug therapy Z79.899 [facility] [address] [id number] [address] [place] [address] Dec, Bipolar disorder, in partial remission, most recent episode hypomanic F31.71 [facility] [address] [id number] [address] [place] [address] Dec, Bipolar disorder, in partial remission, most recent episode hypomanic F31.71 [facility] [address] [id number] [address] [place] [address] October, Bipolar disorder, in partial remission, most recent episode hypomanic F31.71 [facility] [address] [id number] [address] [place] [address] October, [facility] [address] [id number] [address] [place] [address] October, [facility] [address] [id number] [address] [place] [address] Oct, Bipolar disorder, in partial remission, most recent episode hypomanic F31.71 ; Attention deficit hyperactivity disorder (ADHD), combined type F90.2 ; Anxiety disorder, unspecified type F41.9 and Encounter for drug screening Z02.83 [facility] [address] [id number] [address] [place] [address] Oct, Bipolar disorder, in partial remission, most recent episode hypomanic F31.71 [facility] [address] [facility] [id number] [address] [place] [address] Oct, Bipolar disorder, in partial remission, most recent episode hypomanic F31.71 [facility] [address] [facility] [id number] [address] [place] [address] Aug, Bipolar disorder, in partial remission, most recent episode hypomanic F31.71 [facility] [address] [facility] [id number] [address] [place] [address] Aug, Bipolar disorder, in partial remission, most recent episode hypomanic F31.71 [facility] [address] [facility] [id number] [address] [place] [address] Aug, Bipolar disorder, in partial remission, most recent episode hypomanic F31.71 [facility] [address] [id number] [address] [place] [address] Jul, Bipolar disorder, in partial remission, most recent episode hypomanic F31.71 ; Attention deficit hyperactivity disorder (ADHD), combined type F90.2 and Anxiety disorder, unspecified type F41.9 [facility] [address] [id number] [address] [place] [address] Jul, Bipolar disorder, in partial remission, most recent episode hypomanic F31.71 [facility] [address] [id number] [address] [place] [address] Jun, Bipolar disorder, in partial remission, most recent episode hypomanic F31.71 [facility] [address] [id number] [address] [place] [address] May, Bipolar disorder, in partial remission, most recent episode hypomanic F31.71 [facility] [address] [id number] [address] [place] [address] May, Bipolar disorder, in partial remission, most recent episode hypomanic F31.71 [facility] [address] [id number] [address] [place] [address] Apr, [facility] [address] [facility] [id number] [address] [place] [address] Apr, Bipolar disorder, in partial remission, most recent episode hypomanic F31.71 ; Attention deficit hyperactivity disorder (ADHD), combined type F90.2 ; Anxiety disorder, unspecified type F41.9 and Cannabis abuse F12.10 [facility] [address] [id number] [address] [place] [address] Apr, Attention deficit hyperactiv ity disorder (ADHD), combined type F90.2 [facility] [address] [facility] [id number] [address] [place] [address] Mar, Attention deficit hyperactiv ity disorder (ADHD), combined type F90.2 [facility] [address] [facility] [id number] [address] [place] [address] 14 Mar, 2017 Anxiety disorder, unspecifie d type F41.9 [facility] [address] [facility] [id number] [address] [place] [phone] 18 Jan, 2017 Attention deficit hyperactiv ity disorder (ADHD), combined type F90.2 [facility] [address] [facility] [id number] [address] [place] [phone] 16 Jan, 2017 Anxiety disorder, unspecifie d type F41.9 [place] [address] [facility] [id number] [address] [place] [address] Jan, Other chronic pain G89.29 ; Chronic hepatitis C without hepatic coma B18.2 and Bipolar 1 disorder F31.9 [facility] [address] [facility] [id number] [address] [place] [address] Dec, Attention deficit hyperactiv ity disorder (ADHD), combined type F90.2 [facility] [address] [facility] [id number] [address] [place] [address] Dec, Bipolar disorder, in partial remission, most recent episode hypomanic F31.71 ; Attention deficit hyperactivity disorder (ADHD), combined type F90.2 and Anxiety disorder, unspecified type F41.9 [place] [address] [facility] [id number] [address] [place] [address] Dec, Bipolar disorder, in partial remission, most recent episode hypomanic F31.71 ; Attention deficit hyperactivity disorder (ADHD), combined type F90.2 and Anxiety disorder, unspecified type F41.9 [facility] [address] [place] [id number] [address] [place] [address] Dec, Bipolar 1 disorder F31.9 and Attention deficit R41.840 [place] [address] [place] [id number] [address] [place] [address] Oct, Other chronic pain G89.29 ; Alopecia L65.9 and Screening, lipid Z13.220 [place] [address] [facility] [id number] [address] [place] [address] Oct, [place] [address] [place] [id number] [address] [place] [address] Aug, [place] [address] [place] [id number] [address] [place] [address] Aug, Eustachian tube dysfunction, right H69.81 ; Vertigo R42 and Other chronic pain G89.29 [place] [address] [place] [id number] [address] [place] [address] Aug, [facility] [address] [id number] [address] [place] [address] Jun, [facility] [address] [id number] [address] [place] [address] Jun, Low back pain M54.5 and Othe r chronic pain G89.29 [facility] [address] [id number] [address] [place] [address] Jun, [facility] [address] [id number] [address] [place] [address] May, [facility] [address] [id number] [address] [place] [address] Jan, [facility] [address] [id number] [address] [place] [address] Dec, [facility] [address] [id number] [address] [place] [address] Dec, [facility] [address] [id number] [address] [place] [address] Jun, [facility] [address] [id number] [address] [place] [address] Apr, Eustachian tube dysfunction, unspecified laterality H69.80 ; Hot flashes N95.1 and Encounter for immunization Z23 [facility] [address] [id number] [address] [place] [address] Jan, [facility] [address] [id number] [address] [place] [address] Jan, [facility] [address] [id number] [address] [place] [address] Jan, [facility] [address] [facility] [id number] [address] [place] [address] Jan, [facility] [address] [id number] [address] [place] [address] Jan, Encounter to establish care V65.8 ; Bipolar 1 disorder 296.7 ; Abdominal pain 789.00 ; Constipation 564.00 ; Hard of hearing 389.9 and Drug abuse 305.90 [facility] [address] [id number] [address] [place] [address] Dec, [facility] [address] [facility] [id number] [address] [place] [address] October, [facility] [address] [id number] [address] [place] [address] October, [facility] [address] [id number] [address] [place] [address] Oct, [facility] [address] [id number] [address] [place] [address] Oct, [facility] [address] [facility] [id number] [address] [place] [address] Oct, [facility] [address] [id number] [address] [place] [address] Aug, [facility] [address] [id number] [address] [place] [address] Aug, [facility] [address] [facility] [id number] [address] [place] [address] Aug, [facility] [address] [id number] [address] [place] [address] Aug, [facility] [address] [id number] [address] [place] [address] Aug, [facility] [address] [id number] [address] [place] [address] Aug, [facility] [address] [id number] [address] [place] [address] Aug, [facility] [address] [id number] [address] [place] [address] Aug, [facility] [place] [facility] [address] [id number] [address] [place] [address], [place] [address] Aug, 2014 [facility] [address] [id number] [address] [place] [address], [place] [address] Aug, 2014 [facility] [place] [facility] [address] [id number] [address] [place] [address], [place] [address] Aug, 2014 [facility] [place] [facility] [address] [id number] [address] [place] [address], [place] [address] Aug, 2014 [facility] [place] [facility] [address] [id number] [address] [place] [address], [place] [address] Aug, 2014 [facility] [place] [facility] [address] [id number] [address] [place] [address], [place] [address] Aug, 2014 [facility] [address] [id number] [address] [place] [address], [place] [address] Aug, [facility] [address] [id number] [address] [place] [address], [place] [address] Jul, [facility] [address] [id number] [address] [place] [address], [place] [address] Jul, [facility] [address] [id number] [address] [place] [address], [place] [address] Jul, [facility] [address] [id number] [address] [place] [address], [place] [address] Jul, [facility] [place] [facility] [address] [id number] [address] [place] [address], [place] [address] Jul, [facility] [place] [facility] [address] [id number] [address] [place] [address], [place] [address] Jul, [facility] [place] [facility] [address] [id number] [address] [place] [address], [place] [address] Jul, [facility] [place] [facility] [address] [id number] [address] [place] [address], [place] [address] Jul, [facility] [place] [facility] [address] [id number] [address] [place] [address], [place] [address] Jun, [facility] [address] [id number] [address] [place] [address], [place] [address] Jun, [facility] [place] [facility] [address] [id number] [address] [place] [address], [place] [address] Jun, [facility] [place] [facility] [address] [id number] [address] [place] [address], [place] [address] Jun, [facility] [place] [facility] [address] [id number] [address] [place] [address], [place] [address] Jun, [facility] [place] [facility] [address] [id number] [address] [place] [address], [place] [address] Jun, [facility] [place] [facility] [address] [id number] [address] [place] [address], [place] [address] Jun, [facility] [address] [id number] [address] [place] [address], [place] [address] Jun, [facility] [address] [id number] [address] [place] [address], [place] [address] Jun, [facility] [place] [facility] [address] [id number] [address] [place] [address], [place] [address] Jun, [facility] [place] [facility] [address] [id number] [address] [place] [address], [place] [address] Jun, [facility] [address] [id number] [address] [place] [address], [place] [address] May, [facility] [place] [facility] [address] [id number] [address] [place] [address], [place] [address] May, [facility] [address] [id number] [address] [place] [address], [place] [address] May, [facility] [place] [facility] [address] [id number] [address] [place] [address], [place] [address] May, [facility] [place] [facility] [address] [id number] [address] [place] [address], [place] [address] May, [facility] [place] [facility] [address] [id number] [address] [place] [address], [place] [address] May, [facility] [address] [id number] [address] [place] [address], [place] [address] May, [facility] [place] [facility] [address] [id number] [address] [place] [address], [place] [address] Apr, [facility] [address] [id number] [address] [place] [address], [place] [address] Apr, [facility] [address] [id number] [address] [place] [address], [place] [address] Apr, [facility] [address] [id number] [address] [place] [address], [place] [address] Apr, [facility] [address] [id number] [address] [place] [address], [place] [address] Apr, [facility] [address] [id number] [address] [place] [address], [place] [address] Apr, [facility] [address] [id number] [address] [place] [address], [place] [address] Mar, [facility] [place] [facility] [address] [id number] [address] [place] [address], [place] [address] Mar, [facility] [address] [id number] [address] [place] [address], [place] [address] Mar, [facility] [place] [facility] [address] [id number] [address] [place] [address], [place] [address] Mar, [facility] [address] [id number] [address] [place] [address], [place] [address] Mar, [facility] [place] [facility] [address] [id number] [address] [place] [address], [place] [address] Mar, [facility] [place] [facility] [address] [id number] [address] [place] [address], [place] [address] Jan, [facility] [place] [facility] [address] [id number] [address] [place] [address], [place] [address] Jan, [facility] [address] [id number] [address] [place] [address], [place] [address] Jan, [facility] [place] [facility] [address] [id number] [address] [place] [address], [place] [address] Jan, [facility] [place] [facility] [address] [id number] [address] [place] [address], [place] [address] Dec, [facility] [place] [facility] [address] [id number] [address] [place] [address], [place] [address] Dec, [facility] [place] [facility] [address] [id number] [address] [place] [address], [place] [address] Dec, [facility] [place] [facility] [address] [id number] [address] [place] [address], [place] [address] Dec, [facility] [place] [facility] [address] [id number] [address] [place] [address], [place] [address] Dec, [facility] [place] [facility] [address] [id number] [address] [place] [address], [place] [address] Dec, [facility] [place] [facility] [address] [id number] [address] [place] [address], [place] [address] Dec, [facility] [place] [facility] [address] [id number] [address] [place] [address], [place] [address] Dec, [facility] [place] [facility] [address] [id number] [address] [place] [address], [place] [address] Dec, [facility] [place] [facility] [address] [id number] [address] [place] [address], [place] [address] Dec, [facility] [place] [facility] [address] [id number] [address] [place] [address], [place] [address] Dec, [facility] [place] [facility] [address] [id number] [address] [place] [address], [place] [address] Dec, [facility] [place] [facility] [address] [id number] [address] [place] [address], [place] [address] October, [facility] [place] [facility] [address] [id number] [address] [place] [address], [place] [address] October, [facility] [address] [id number] [address] [place] [address], [place] [address] October, [facility] [address] [id number] [address] [place] [address], [place] [address] October, [facility] [address] [id number] [address] [place] [address], [place] [address] October, [facility] [address] [id number] [address] [place] [address], [place] [address] October, [facility] [address] [id number] [address] [place] [address], [place] [address] Oct, [facility] [address] [id number] [address] [place] [address], [place] [address] Oct, [facility] [address] [id number] [address] [place] [address], [place] [address] Oct, [facility] [address] [id number] [address] [place] [address], [place] [address] Oct, [facility] [address] [id number] [address] [place] [address], [place] [address] Oct, [facility] [address] [id number] [address] [place] [address], [place] [address] Oct, [facility] [address] [id number] [address] [place] [address], [place] [address] Oct, [facility] [address] [id number] [address] [place] [address], [place] [address] Oct, [facility] [address] [id number] [address] [place] [address], [place] [address] Oct, [facility] [address] [id number] [address] [place] [address], [place] [address] Oct, [facility] [address] [id number] [address] [place] [address], [place] [address] Oct, [facility] [address] [id number] [facility] [place] [address] 08 Oct, 2013 [facility] [place] [facility] [address] [id number] [facility] [place] [address] 15 Aug, 2013 [facility] [place] [facility] [address] [id number] [facility] [place] [address] 15 Aug, 2013 [facility] [place] [facility] [address] [id number] [address] [place] [address], [place] [address] Aug, [facility] [place] [facility] [address] [id number] [address] [place] [address], [place] [address] Aug, [facility] [place] [facility] [address] [id number] [address] [place] [address], [place] [address] Aug, [facility] [place] [facility] [address] [id number] [address] [place] [address], [place] [address] Aug, [facility] [place] [facility] [address] [id number] [address] [place] [address], [place] [address] Aug, [facility] [place] [facility] [address] [id number] [address] [place] [address], [place] [address] Aug, [facility] [place] [facility] [address] [id number] [address] [place] [address], [place] [address] Aug, [facility] [place] [facility] [address] [id number] [address] [place] [address], [place] [address] Aug, [facility] [place] [facility] [address] [id number] [address] [place] [address], [place] [address] Aug, [facility] [place] [facility] [address] [id number] [address] [place] [address], [place] [address] Aug, [facility] [place] [facility] [address] [id number] [address] [place] [address], [place] [address] Aug, [facility] [place] [facility] [address] [id number] [address] [place] [address], [place] [address] Aug, [facility] [place] [facility] [address] [id number] [address] [place] [address], [place] [address] 14 Aug, 2013 [facility] [address] [id number] [address] [place] [address], [place] [address] 14 Aug, 2013 [facility] [address] [id number] [address] [place] [address], [place] [address] 14 Aug, 2013 [facility] [address] [id number] [address] [place] [address], [place] [address] 14 Aug, 2013 [facility] [address] [id number] [address] [place] [address], [place] [address] 07 Aug, 2013 [facility] [address] [id number] [address] [place] [address], [place] [address] 07 Aug, 2013 [facility] [address] [id number] [address] [place] [address], [place] [address] 06 Aug, 2013 [facility] [address] [id number] [address] [place] [address], [place] [address] 06 Aug, 2013 [facility] [address] [id number] [address] [place] [address], [place] [address] 04 Aug, 2013 [facility] [address] [id number] [address] [place] [address], [place] [address] 04 Aug, 2013 [facility] [address] [id number] [address] [place] [address], [place] [address] Aug, [facility] [address] [id number] [address] [place] [address], [place] [address] Jul, [facility] [address] [id number] [address] [place] [address], [place] [address] Jul, [facility] [address] [id number] [address] [place] [address], [place] [address] Jul, [facility] [address] [id number] [address] [place] [address], [place] [address] Jul, [facility] [address] [id number] [address] [place] [address], [place] [address] Jul, [facility] [address] [id number] [address] [place] [address], [place] [address] Jul, [facility] [address] [id number] [address] [place] [address], [place] [address] Jul, [facility] [address] [id number] [address] [place] [address], [place] [address] Jul, [facility] [address] [id number] [address] [place] [address], [place] [address] Jul, [facility] [address] [id number] [address] [place] [address], [place] [address] Jul, [facility] [address] [id number] [address] [place] [address], [place] [address] Jul, [facility] [address] [id number] [address] [place] [address], [place] [address] Jul, [facility] [address] [id number] [address] [place] [address], [place] [address] Jul, [facility] [address] [id number] [address] [place] [address], [place] [address] Jul, [facility] [address] [id number] [address] [place] [address], [place] [address] Jul, [facility] [address] [id number] [address] [place] [address], [place] [address] Jul, [facility] [address] [id number] [address] [place] [address], [place] [address] Jul, [facility] [address] [id number] [address] [place] [address], [place] [address] Jul, [facility] [address] [id number] [address] [place] [address], [place] [address] Jul, [facility] [address] [id number] [address] [place] [address], [place] [address] Jul, [facility] [address] [id number] [address] [place] [address], [place] [address] 31 Jun, 2013 [facility] [address] [id number] [address] [place] [address], [place] [address] 31 Jun, 2013 [facility] [address] [id number] [address] [place] [address], [place] [address] Jun, [facility] [address] [id number] [address] [place] [address], [place] [address] Jun, [facility] [address] [id number] [address] [place] [address], [place] [address] Jun, [facility] [address] [id number] [address] [place] [address], [place] [address] Jun, [facility] [address] [id number] [address] [place] [address], [place] [address] Jun, [facility] [address] [id number] [address] [place] [address], [place] [address] Jun, [facility] [address] [id number] [address] [place] [address], [place] [address] Jun, [facility] [address] [id number] [address] [place] [address], [place] [address] Jun, [facility] [address] [id number] [address] [place] [address], [place] [address] Jun, [facility] [address] [id number] [address] [place] [address], [place] [address] Jun, [facility] [address] [id number] [address] [place] [address], [place] [address] Jun, [facility] [address] [id number] [address] [place] [address], [place] [address] Jun, [facility] [address] [id number] [address] [place] [address], [place] [address] Jun, [facility] [address] [id number] [address] [place] [address], [place] [address] 18 Jun, 2013 [facility] [address] [id number] [address] [place] [address], [place] [address] 18 Jun, 2013 [facility] [address] [id number] [address] [place] [address], [place] [address] 17 Jun, 2013 [facility] [address] [id number] [address] [place] [address], [place] [address] 17 Jun, 2013 [facility] [address] [id number] [address] [place] [address], [place] [address] 13 Jun, 2013 [facility] [address] [id number] [address] [place] [address], [place] [address] 12 Jun, 2013 [facility] [address] [id number] [address] [place] [address], [place] [address] 12 Jun, 2013 [facility] [address] [id number] [address] [place] [address], [place] [address] 09 Jun, 2013 [facility] [address] [id number] [address] [place] [address], [place] [address] 05 Jun, 2013 [facility] [address] [id number] [address] [place] [address], [place] [address] 05 Jun, 2013 [facility] [address] [id number] [address] [place] [address], [place] [address] 04 Jun, 2013 [facility] [address] [id number] [address] [place] [address], [place] [address] 04 Jun, 2013 [facility] [address] [id number] [address] [place] [address], [place] [address] May, [facility] [address] [id number] [address] [place] [address], [place] [address] 17 May, 2013 [facility] [address] [id number] [address] [place] [address], [place] [address] May, [facility] [address] [id number] [address] [place] [address], [place] [address] May, [facility] [address] [id number] [address] [place] [address] [address] May, [facility] [address] [id number] [address] [place] [address], [place] [address] May, [facility] [address] [id number] [address] [place] [address], [place] [address] Apr, [facility] [address] [id number] [address] [place] [address], [place] [address] Apr, [facility] [address] [id number] [address] [place] [address], [place] [address] Apr, [facility] [address] [id number] [address] [place] [address], [place] [address] Apr, [facility] [address] [id number] [address] [place] [address], [place] [address] Apr, [facility] [address] [id number] [address] [place] [address], [place] [address] Apr, [facility] [address] [id number] [address] [place] [address], [place] [address] 15 Apr, 2013 [facility] [address] [id number] [address] [place] [address], [place] [address] Apr, [facility] [address] [id number] [address] [place] [address] 26 Mar, 2013 [facility] [address] [id number] [address] [place] [address] 24 Sep, 2012 [facility] [place] [facility] [address] [id number] [address] [place] [address] 17 Sep, 2012 [facility] [place] [facility] [address] [id number] [address] [place] [address], [place] [address] 17 Sep, 2012 [facility] [place] [facility] [address] [id number] [address] [place] [address] 11 Sep, 2012 [facility] [place] [facility] [address] [id number] [address] [place] [address], [place] [address] 10 Mar, 2012 [facility] [place] [facility] [address] [id number] [address] [place] [address], [place] [address] 05 Mar, 2013 [facility] [address] [id number] [address] [place] [address], [place] [address] 04 Mar, 2013 [facility] [address] [id number] [address] [place] [address], [place] [address] Jan, [facility] [address] [id number] [address] [place] [address], [place] [address] Jan, [facility] [address] [id number] [address] [place] [address], [place] [address] Jan, [facility] [address] [id number] [address] [place] [address], [place] [address] Jan, [facility] [address] [id number] [address] [place] [address], [place] [address] Jan, [facility] [address] [id number] [address] [place] [address], [place] [address] Jan, [facility] [address] [id number] [address] [place] [address], [place] [address] Dec, [facility] [address] [id number] [address] [place] [address], [place] [address] 24 Dec, 2012 [facility] [address] [id number] [address] [place] [address], [place] [address] Dec, [facility] [address] [id number] [address] [place] [address], [place] [address] Dec, [facility] [address] [id number] [address] [place] [address], [place] [address] 18 Dec, 2012 [facility] [address] [id number] [address] [place] [address], [place] [address] 17 Dec, 2012 [facility] [address] [id number] [address] [place] [address], [place] [address] 16 Dec, 2012 [facility] [address] [id number] [address] [place] [address], [place] [address] 16 Dec, 2012 [facility] [address] [id number] [address] [place] [address], [place] [address] 15 Dec, 2012 [facility] [address] [id number] [address] [place] [address], [place] [address] Dec, [facility] [address] [id number] [address] [place] [address], [place] [address] Dec, [facility] [address] [id number] [address] [place] [address], [place] [address] Dec, [facility] [address] [id number] [address] [place] [address], [place] [address] Dec, [facility] [address] [id number] [address] [place] [address], [place] [address] Dec, [facility] [address] [id number] [address] [place] [address], [place] [address] Dec, [facility] [address] [id number] [address] [place] [address], [place] [address] Dec, [facility] [address] [id number] [address] [place] [address], [place] [address] October, [facility] [address] [id number] [address] [place] [address], [place] [address] October, [facility] [address] [id number] [address] [place] [address], [place] [address] October, [facility] [address] [id number] [address] [place] [address], [place] [address] October, [facility] [address] [id number] [address] [place] [address], [place] [address] October, [facility] [address] [id number] [address] [place] [address], [place] [address] October, [facility] [address] [id number] [address] [place] [address], [place] [address] October, [facility] [address] [id number] [address] [place] [address], [place] [address] 29 Oct, 2012 [facility] [address] [id number] [address] [place] [address], [place] [address] Oct, [facility] [address] [id number] [address] [place] [address], [place] [address] 24 Oct, 2012 [facility] [address] [id number] [address] [place] [address], [place] [address] Oct, [facility] [address] [id number] [address] [place] [address], [place] [address] Oct, [facility] [address] [id number] [address] [place] [address], [place] [address] 18 Oct, 2012 [facility] [address] [id number] [address] [place] [address], [place] [address] 17 Oct, 2012 [facility] [address] [id number] [address] [place] [address], [place] [address] 15 Oct, 2012 [facility] [address] [id number] [address] [place] [address], [place] [address] Oct, [facility] [address] [id number] [address] [place] [address], [place] [address] Oct, [facility] [address] [id number] [address] [place] [address], [place] [address] Oct, [facility] [address] [id number] [address] [place] [address], [place] [address] Oct, [facility] [address] [id number] [address] [place] [address], [place] [address] Aug, [facility] [address] [id number] [address] [place] [address], [place] [address] Aug, [facility] [address] [id number] [address] [place] [address], [place] [address] Aug, [facility] [address] [id number] [address] [place] [address], [place] [address] Aug, [facility] [address] [id number] [address] [place] [address], [place] [address] 05 Aug, 2012 [facility] [address] [id number] [address] [place] [address], [place] [address] 05 Aug, 2012 [facility] [address] [id number] [address] [place] [address], [place] [address] 20 Aug, 2012 [facility] [address] [id number] [address] [place] [address], [place] [address] 14 Aug, 2012 [facility] [address] [id number] [address] [place] [address], [place] [address] 12 Aug, 2012 [facility] [address] [id number] [address] [place] [address], [place] [address] 11 Aug, 2012 [facility] [address] [id number] [address] [place] [address], [place] [address] 29 Jul, 2012 [facility] [address] [id number] [address] [place] [address], [place] [address] 15 Jul, 2012 [facility] [address] [id number] [address] [place] [address], [place] [address] 08 Jul, 2012 [facility] [address] [id number] [address] [place] [address], [place] [address] 20 Jun, 2012 [facility] [address] [id number] [address] [place] [address], [place] [address] 18 Jun, 2012 [facility] [address] [id number] [address] [place] [address], [place] [address] 18 Jun, 2012 [facility] [address] [id number] [address] [place] [address], [place] [address] 18 Jun, 2012 [facility] [address] [id number] [address] [place] [address], [place] [address] 18 Jun, 2012 [facility] [address] [id number] [address] [place] [address], [place] [address] 14 Jun, 2012 [facility] [address] [id number] [address] [place], [place] [address] [address] 14 Jun, 2012 [facility] [address] [id number] [address] [place] [address], [place] [address] 13 Jun, 2012 [facility] [address] [id number] [address] [place] [address], [place] [address] 13 Jun, 2012 [facility] [address] [id number] [address] [place] [address], [place] [address] 11 Jun, 2012 [facility] [address] [id number] [address] [place] [address], [place] [address] 11 Jun, 2012 [facility] [address] [id number] [address] [place] [address], [place] [address] Jun, [facility] [address] [id number] [address] [place] [address], [place] [address] Jun, [facility] [address] [id number] [address] [place] [address], [place] [address] 07 Jun, 2012 [facility] [address] [id number] [address] [place] [address], [place] [address] 07 Jun, 2012 [facility] [address] [id number] [address] [place] [address], [place] [address] Jun, [facility] [address] [id number] [address] [place] [address], [place] [address] 06 Jun, 2012 [facility] [address] [id number] [address] [place] [address], [place] [address] Jun, [facility] [address] [id number] [address] [place] [address], [place] [address] Jun, [facility] [address] [id number] [address] [place] [address], [place] [address] Jun, [facility] [address] [id number] [address] [place] [address], [place] [address] 05 Jun, 2012 [facility] [address] [id number] [address] [place] [address], [place] [address] Jun, [facility] [address] [id number] [address] [place] [address], [place] [address] Jun, [facility] [address] [id number] [address] [place] [address], [place] [address] May, [facility] [place] [facility] [address] [id number] [address] [place] [address], [place] [address] May, [facility] [address] [id number] [address] [place] [address], [place] [address] May, [facility] [place] [facility] [address] [id number] [address] [place] [address], [place] [address] May, [facility] [address] [id number] [address] [place] [address], [place] [address] May, [facility] [place] [facility] [address] [id number] [address] [place] [address], [place] [address] May, [facility] [address] [id number] [address] [place] [address], [place] [address] May, [facility] [place] [facility] [address] [id number] [address] [place] [address], [place] [address] May, [facility] [place] [facility] [address] [id number] [address] [place] [address], [place] [address] Apr, [facility] [place] [facility] [address] [id number] [address] [place] [address], [place] [address] Apr, [facility] [place] [facility] [address] [id number] [address] [place] [address], [place] [address] 29 Apr, 2012 [facility] [place] [facility] [address] [id number] [address] [place] [address] Apr, [facility] [place] [facility] [address] [address] [id number] [address] [place] [address], [place] [address] Apr, [facility] [place] [facility] [address] [id number] [address] [place] [address], [place] [address] Apr, [facility] [place] [facility] [address] [id number] [address] [place] [address] Apr, [facility] [place] [facility] [address] [id number] [address] [place] [address], [place] [address] Apr, [facility] [address] [id number] [address] [place] [address], [place] [address] Apr, [facility] [address] [id number] [address] [place] [address], [place] [address] Apr, [facility] [address] [id number] [address] [place] [address], [place] [address] Apr, [facility] [address] [id number] [address] [place] [address], [place] [address] Apr, [facility] [address] [id number] [address] [place] [address], [place] [address] Mar, [facility] [address] [id number] [address] [place] [address], [place] [address] 18 Mar, 2012 [facility] [address] [id number] [address] [place] [address] Mar, [facility] [address] [id number] [address] [place] [address], [place] [address] Mar, [facility] [address] [id number] [address] [place] [id number] Mar, [facility] [address] [id number] [address] [place] [id number] Mar, [facility] [address] [id number] [address] [place] [address] Mar, [facility] [address] [id number] [address] [place] [address] Jan, [facility] [address] [id number] [address] [place] [address] Jan, [facility] [address] [id number] [address] [place] [id number] Jan, [facility] [address] [id number] [address] [place] [id number] Jan, [facility] [address] [id number] [address] [place] [address], [place] [address] Jan, [facility] [address] [id number] [address] [place] [address], [place] [address] Jan, [facility] [address] [id number] [address] [place] [address], [place] [address] Jan, [facility] [address] [id number] [address] [place] [address], [place] [address] Jan, [facility] [address] [id number] [address] [place] [address], [place] [address] Jan, [facility] [address] [id number] [address] [place] [address], [place] [address] Jan, [facility] [address] [id number] [address] [place] [address], [place] [address] Jan, [facility] [address] [id number] [address] [place] [address], [place] [address] Dec, [facility] [address] [id number] [address] [place] [address], [place] [address] Dec, [facility] [address] [id number] [address] [place] [address], [place] [address] Dec, [facility] [address] [id number] [address] [place] [address], [place] [address] Dec, [facility] [address] [id number] [address] [place] [address], [place] [address] Dec, [facility] [address] [id number] [address] [place] [address], [place] [address] Dec, [facility] [address] [id number] [address] [place] [address], [place] [address] Dec, [facility] [address] [id number] [address] [place] [address], [place] [address] Dec, [facility] [address] [id number] [address] [place] [address], [place] [address] 16 Jan, 2012 [facility] [address] [id number] [address] [place] [address], [place] [address] 13 Jan, 2012 [facility] [address] [id number] [address] [place] [address], [place] [address] 13 Jan, 2012 [facility] [address] [id number] [address] [place] [address], [place] [address] Dec, [facility] [address] [id number] [address] [place] [address], [place] [address] Dec, [facility] [address] [id number] [address] [place] [address], [place] [address] Dec, [facility] [address] [id number] [address] [place] [address], [place] [address] Dec, [facility] [address] [id number] [address] [place] [address], [place] [address] Dec, [facility] [address] [id number] [address] [place] [address], [place] [address] Dec, [facility] [address] [id number] [address] [place] [address], [place] [address] Dec, [facility] [address] [id number] [address] [place] [address], [place] [address] Dec, [facility] [address] [id number] [address] [place] [address], [place] [address] October, [facility] [address] [id number] [address] [place] [address], [place] [address] October, [facility] [address] [id number] [address] [place] [address], [place] [address] October, [facility] [address] [id number] [address] [place] [address], [place] [address] October, [facility] [address] [id number] [address] [place] [address], [place] [address] October, [facility] [address] [id number] [address] [place] [address], [place] [address] October, [facility] [address] [id number] [address] [place] [address], [place] [address] Oct, [facility] [address] [id number] [address] [place] [address], [place] [address] Oct, [facility] [address] [id number] [address] [place] [address], [place] [address] Oct, [facility] [address] [id number] [address] [place] [address], [place] [address] Oct, [facility] [address] [id number] [address] [place] [address], [place] [address] Oct, [facility] [address] [id number] [address] [place] [address], [place] [address] Oct, [facility] [address] [id number] [address] [place] [address], [place] [address] Oct, [facility] [address] [id number] [address] [place] [address], [place] [address] Aug, [facility] [address] [id number] [address] [place] [address], [place] [address] Aug, [facility] [address] [id number] [address] [place] [address], [place] [address] Aug, [facility] [address] [id number] [address] [place] [address], [place] [address] Aug, [facility] [address] [id number] [address] [place] [address], [place] [address] Aug, [facility] [address] [id number] [address] [place] [address], [place] [address] Aug, [facility] [address] [id number] [address] [place] [address], [place] [address] Aug, [facility] [address] [id number] [address] [place] [address], [place] [address] Aug, [facility] [address] [id number] [address] [place] [address], [place] [address] Aug, [facility] [address] [id number] [address] [place] [address], [place] [address] Jul, [facility] [address] [id number] [address] [place] [address], [place] [address] Jul, [facility] [address] [id number] [address] [place] [address], [place] [address] Jul, [facility] [address] [id number] [address] [place] [address], [place] [address] Jul, [facility] [address] [id number] [address] [place] [address], [place] [address] Jun, [facility] [address] [id number] [address] [place] [address], [place] [address] Jun, [facility] [address] [id number] [address] [place] [address], [place] [address] May, [facility] [address] [id number] [address] [place] [address], [place] [address] May, [facility] [address] [id number] [address] [place] [address], [place] [address] May, [facility] [address] [id number] [address] [place] [address], [place] [address] May, [facility] [address] [id number] [address] [place] [address], [place] [address] May, [facility] [address] [id number] [address] [place] [address], [place] [address] 28 Apr, 2011 [facility] [place] [facility] [address] [id number] [address] [place] [address], [place] [address] 28 Apr, 2011 [facility] [address] [id number] [address] [place] [address], [place] [address] 10 Apr, 2011 [facility] [place] [facility] [address] [id number] [address] [place] [address] Jan, [facility] [address] [id number] [address] [place] [address] Dec, [facility] [address] [id number] [address] [place] [address] October, [facility] [address] [facility] [id number] [address] [place] [address] Jun, [facility] [address] [id number] [address] [place] [address] Apr, [facility] [address] [facility] [id number] [address] [place] [address] Apr, [facility] [address] [facility] [id number] [address] [place] [id number] Apr, [facility] [address] [facility] [id number] [address] [place] [address] Jun, IMMUNIZATIONS No Known Immunizations SOCIAL HISTORY [...]
--- OUTSIDE RECORDS SUMMARY | 2020-01-25 13:22 | XMS REPORT ---
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 Name Role Phone CHAZ MCDONALD Unavailable PROBLEMS Type Condition ICD9-CM Code XTC39-VE Code Onset Dates Condition S tatus SNOMED Code Problem Chronic hepatitis C without hepatic coma B18.2 Active 500700297 Problem Cannabis abuse F12.10 Active 87490 009 Problem Bipolar 1 disorder F31.9 Active 3 27845419 Problem Attention deficit hyperactivity disorder (ADHD), combi luciano type F90.2 Active 47269402 Problem Attention deficit R41.840 Active 76 307890 Problem Hot flashes due to menopause N95.1 A ctive 898384211 Problem H/O laminectomy Z98.89 Active 1616 92364 Problem Other chronic pain G89.29 Active 8 1489681 Problem Anxiety disorder, unspecified type F41.9 Active 704976742 Problem Bipolar disorder, in partial remission, most rec ent episode hypomanic F31.71 Active [id number] ALLERGIES No Information ENCOUNTERS Encounter Location Date Diagnosis [facility] [address] [id number] [address] [place] [id number] Oct, [facility] [address] [facility] [id number] [address] [place] [address] Oct, [facility] [address] [facility] [id number] [address] [place] [address] Aug, [facility] [address] [facility] [id number] [address] [place] [address] Jul, [facility] [address] [facility] [id number] [address] [place] [address] Jul, [facility] [address] [facility] [id number] [address] [place] [address] Apr, [facility] [address] [id number] [address] [place] [address] Mar, Hot flashes due to menopause N95.1 ; Anxiety disorder, unspecified type F41.9 ; Low back pain M54.5 and Encounter for immunization Z23 [facility] [address] [id number] [address] [place] [address] Dec, Other chronic pain G89.29 an d Low back pain M54.5 [facility] [address] [id number] [address] [place] [address] October, [facility] [address] [id number] [address] [place] [address] October, [facility] [address] [id number] [address] [place] [address] October, [facility] [address] [facility] [id number] [address] [place] [address] October, Other chronic pain G89.29 an d Chronic hepatitis C without hepatic coma B18.2 [facility] [address] [id number] [address] [place] [address] Aug, Bipolar disorder, in partial remission, most recent episode hypomanic F31.71 ; Attention deficit hyperactivity disorder (ADHD), combined type F90.2 and Anxiety disorder, unspecified type F41.9 [facility] [address] [id number] [address] [place] [address] Aug, [facility] [address] [id number] [address] [place] [address] Aug, Bipolar disorder, in partial remission, most recent episode hypomanic F31.71 [facility] [address] [id number] [address] [place] [address] Aug, [facility] [address] [facility] [id number] [address] [place] [address] Aug, Bipolar disorder, in partial remission, most recent episode hypomanic F31.71 [facility] [address] [id number] [address] [place] [address] Aug, Bipolar disorder, in partial remission, most recent episode hypomanic F31.71 ; Attention deficit hyperactivity disorder (ADHD), combined type F90.2 and Anxiety disorder, unspecified type F41.9 [facility] [address] [id number] [address] [place] [address] Aug, Low back pain M54.5 and Pain in left wrist M25.532 [facility] [address] [id number] [address] [place] [address] Aug, [facility] [address] [id number] [address] [place] [address] Jun, [facility] [address] [id number] [address] [place] [address] Apr, Bipolar disorder, in partial remission, most recent episode hypomanic F31.71 [facility] [address] [id number] [address] [place] [address] Apr, [facility] [address] [id number] [address] [place] [address] Apr, Bipolar disorder, in partial remission, most recent episode hypomanic F31.71 ; Attention deficit hyperactivity disorder (ADHD), combined type F90.2 ; Anxiety disorder, unspecified type F41.9 and Other penitentiary (current) drug therapy Z79.899 [facility] [address] [id number] [address] [place] [address] Apr, Bipolar disorder, in partial remission, most recent episode hypomanic F31.71 [facility] [address] [id number] [address] [place] [address] Apr, Bipolar disorder, in partial remission, most recent episode hypomanic F31.71 [facility] [address] [id number] [address] [place] [address] Mar, [facility] [address] [id number] [address] [place] [address] Mar, Bipolar disorder, in partial remission, most recent episode hypomanic F31.71 ; Encounter for immunization Z23 and Low back pain M54.5 [facility] [address] [facility] [id number] [address] [place] [address] Mar, Bipolar disorder, in partial remission, most recent episode hypomanic F31.71 [facility] [address] [facility] [id number] [address] [place] [address] Mar, Bipolar disorder, in partial remission, most recent episode hypomanic F31.71 [facility] [address] [facility] [id number] [address] [place] [address] Jan, Bipolar disorder, in partial remission, most recent episode hypomanic F31.71 [facility] [address] [facility] [id number] [address] [place] [address] Jan, Bipolar disorder, in partial remission, most recent episode hypomanic F31.71 [facility] [address] [facility] [id number] [address] [place] [address] Dec, Bipolar disorder, in partial remission, most recent episode hypomanic F31.71 [facility] [address] [facility] [id number] [address] [place] [address] Dec, Bipolar disorder, in partial remission, most recent episode hypomanic F31.71 ; Attention deficit hyperactivity disorder (ADHD), combined type F90.2 ; Anxiety disorder, unspecified type F41.9 and Other penitentiary (current) drug therapy Z79.899 [facility] [address] [facility] [id number] [address] [place] [address] Dec, Bipolar disorder, in partial remission, most recent episode hypomanic F31.71 [facility] [address] [facility] [id number] [address] [place] [address] Dec, Bipolar disorder, in partial remission, most recent episode hypomanic F31.71 [facility] [address] [facility] [id number] [address] [place] [address] October, Bipolar disorder, in partial remission, most recent episode hypomanic F31.71 [facility] [address] [id number] [address] [place] [address] October, [facility] [address] [id number] [address] [place] [address] October, [facility] [address] [id number] [address] [place] [address] Oct, Bipolar disorder, in partial remission, most recent episode hypomanic F31.71 ; Attention deficit hyperactivity disorder (ADHD), combined type F90.2 ; Anxiety disorder, unspecified type F41.9 and Encounter for drug screening Z02.83 [facility] [address] [id number] [address] [place] [address] Oct, Bipolar disorder, in partial remission, most recent episode hypomanic F31.71 [facility] [address] [facility] [id number] [address] [place] [address] Oct, Bipolar disorder, in partial remission, most recent episode hypomanic F31.71 [facility] [address] [id number] [address] [place] [address] Aug, Bipolar disorder, in partial remission, most recent episode hypomanic F31.71 [facility] [address] [facility] [id number] [address] [place] [address] Aug, Bipolar disorder, in partial remission, most recent episode hypomanic F31.71 [facility] [address] [facility] [id number] [address] [place] [address] Aug, Bipolar disorder, in partial remission, most recent episode hypomanic F31.71 [facility] [address] [facility] [id number] [address] [place] [address] Jul, Bipolar disorder, in partial remission, most recent episode hypomanic F31.71 ; Attention deficit hyperactivity disorder (ADHD), combined type F90.2 and Anxiety disorder, unspecified type F41.9 [facility] [address] [id number] [address] [place] [address] Jul, Bipolar disorder, in partial remission, most recent episode hypomanic F31.71 [facility] [address] [facility] [id number] [address] [place] [address] Jun, Bipolar disorder, in partial remission, most recent episode hypomanic F31.71 [facility] [address] [id number] [address] [place] [address] May, Bipolar disorder, in partial remission, most recent episode hypomanic F31.71 [facility] [address] [id number] [address] [place] [address] May, Bipolar disorder, in partial remission, most recent episode hypomanic F31.71 [facility] [address] [facility] [id number] [address] [place] [address] Apr, [facility] [address] [facility] [id number] [address] [place] [address] Apr, Bipolar disorder, in partial remission, most recent episode hypomanic F31.71 ; Attention deficit hyperactivity disorder (ADHD), combined type F90.2 ; Anxiety disorder, unspecified type F41.9 and Cannabis abuse F12.10 [facility] [address] [facility] [id number] [address] [place] [address] Apr, Attention deficit hyperactiv ity disorder (ADHD), combined type F90.2 [facility] [address] [facility] [id number] [address] [place] [address] Mar, Attention deficit hyperactiv ity disorder (ADHD), combined type F90.2 [facility] [address] [id number] [address] [place] [address] 14 Mar, 2017 Anxiety disorder, unspecifie d type F41.9 [facility] [address] [facility] [id number] [address] [place] [address] Jan, Attention deficit hyperactiv ity disorder (ADHD), combined type F90.2 [facility] [address] [facility] [id number] [address] [place] [address] Jan, Anxiety disorder, unspecifie d type F41.9 [facility] [address] [facility] [id number] [address] [place] [address] Jan, Other chronic pain G89.29 ; Chronic hepatitis C without hepatic coma B18.2 and Bipolar 1 disorder F31.9 [facility] [address] [id number] [address] [place] [address] Dec, Attention deficit hyperactiv ity disorder (ADHD), combined type F90.2 [facility] [address] [id number] [address] [place] [address] Dec, Bipolar disorder, in partial remission, most recent episode hypomanic F31.71 ; Attention deficit hyperactivity disorder (ADHD), combined type F90.2 and Anxiety disorder, unspecified type F41.9 [facility] [address] [facility] [id number] [address] [place] [address] Dec, Bipolar disorder, in partial remission, most recent episode hypomanic F31.71 ; Attention deficit hyperactivity disorder (ADHD), combined type F90.2 and Anxiety disorder, unspecified type F41.9 [facility] [address] [facility] [id number] [address] [place] [address] Dec, Bipolar 1 disorder F31.9 and Attention deficit R41.840 [facility] [address] [facility] [id number] [address] [place] [address] Oct, Other chronic pain G89.29 ; Alopecia L65.9 and Screening, lipid Z13.220 [facility] [address] [facility] [id number] [address] [place] [address] Oct, [facility] [address] [facility] [id number] [address] [place] [address] Aug, [facility] [address] [facility] [id number] [address] [place] [address] Aug, Eustachian tube dysfunction, right H69.81 ; Vertigo R42 and Other chronic pain G89.29 [facility] [address] [id number] [address] [place] [address] Aug, [facility] [address] [id number] [address] [place] [address] Jun, [facility] [address] [id number] [address] [place] [address] Jun, Low back pain M54.5 and Othe r chronic pain G89.29 [facility] [address] [id number] [address] [place] [address] Jun, [facility] [address] [id number] [address] [place] [address] May, [facility] [address] [id number] [address] [place] [id number] Jan, [facility] [address] [id number] [address] [place] [address] Dec, [facility] [address] [id number] [address] [place] [address] Dec, [facility] [address] [id number] [address] [place] [address] Jun, [facility] [address] [facility] [id number] [address] [place] [address] Apr, Eustachian tube dysfunction, unspecified laterality H69.80 ; Hot flashes N95.1 and Encounter for immunization Z23 [facility] [address] [id number] [address] [place] [address] Jan, [facility] [address] [id number] [address] [place] [address] Jan, [facility] [address] [id number] [address] [place] [address] Jan, [facility] [address] [id number] [address] [place] [address] Jan, [facility] [address] [id number] [address] [place] [address] Jan, Encounter to establish care V65.8 ; Bipolar 1 disorder 296.7 ; Abdominal pain 789.00 ; Constipation 564.00 ; Hard of hearing 389.9 and Drug abuse 305.90 [facility] [address] [id number] [address] [place] [address] Dec, [facility] [address] [id number] [address] [place] [address] October, [facility] [address] [id number] [address] [place] [address] October, [facility] [address] [id number] [address] [place] [address] Oct, [facility] [address] [id number] [address] [place] [address] Oct, [facility] [address] [id number] [address] [place] [address] Oct, [facility] [address] [id number] [address] [place] [address] Aug, [facility] [address] [id number] [address] [place] [address] Aug, [facility] [address] [id number] [address] [place] [address] Aug, [facility] [address] [id number] [address] [place] [address] Aug, [facility] [address] [id number] [address] [place] [address] Aug, [facility] [address] [id number] [address] [place] [address] Aug, [facility] [address] [id number] [address] [place] [address] Aug, [facility] [address] [id number] [address] [place] [address], [place] [address] Aug, 2014 [facility] [address] [id number] [address] [place] [address], [place] [address] Aug, 2014 [facility] [address] [id number] [address] [place] [address], [place] [address] Aug, 2014 [facility] [address] [id number] [address] [place] [address], [place] [address] Aug, 2014 [facility] [address] [id number] [address] [place] [address], [place] [address] Aug, 2014 [facility] [address] [id number] [address] [place] [address], [place] [address] Aug, 2014 [facility] [address] [id number] [address] [place] [address], [place] [address] Aug, 2014 [facility] [address] [id number] [address] [place] [address], [place] [address] Aug, [facility] [address] [id number] [address] [place] [address], [place] [address] Jul, [facility] [address] [id number] [address] [place] [address], [place] [address] Jul, [facility] [address] [id number] [address] [place] [address], [place] [address] Jul, [facility] [address] [id number] [address] [place] [address], [place] [address] Jul, [facility] [address] [id number] [address] [place] [address], [place] [address] Jul, [facility] [address] [id number] [address] [place] [address], [place] [address] Jul, [facility] [address] [id number] [address] [place] [address], [place] [address] Jul, [facility] [address] [id number] [address] [place] [address], [place] [address] Jul, [facility] [address] [id number] [address] [place] [address], [place] [address] Jun, [facility] [address] [id number] [address] [place] [address], [place] [address] Jun, [facility] [address] [id number] [address] [place] [address], [place] [address] Jun, [facility] [address] [id number] [address] [place] [address], [place] [address] Jun, [facility] [address] [id number] [address] [place] [address], [place] [address] Jun, [facility] [address] [id number] [address] [place] [address], [place] [address] Jun, [facility] [address] [id number] [address] [place] [address], [place] [address] Jun, [facility] [address] [id number] [address] [place] [address], [place] [address] Jun, [facility] [address] [id number] [address] [place] [address], [place] [address] Jun, [facility] [address] [id number] [address] [place] [address], [place] [address] Jun, [facility] [address] [id number] [address] [place] [address], [place] [address] Jun, [facility] [address] [id number] [address] [place] [address], [place] [address] May, [facility] [address] [id number] [address] [place] [address], [place] [address] May, [facility] [address] [id number] [address] [place] [address], [place] [address] May, [facility] [address] [id number] [address] [place] [address], [place] [address] May, [facility] [address] [id number] [address] [place] [address], [place] [address] May, [facility] [address] [id number] [address] [place] [address], [place] [address] May, [facility] [address] [id number] [address] [place] [address], [place] [address] May, [facility] [address] [id number] [address] [place] [address], [place] [address] Apr, [facility] [address] [id number] [address] [place] [address], [place] [address] Apr, [facility] [address] [id number] [address] [place] [address], [place] [address] Apr, [facility] [address] [id number] [address] [place] [address], [place] [address] Apr, [facility] [address] [id number] [address] [place] [address], [place] [address] Apr, [facility] [address] [id number] [address] [place] [address], [place] [address] Apr, [facility] [address] [id number] [address] [place] [address], [place] [address] 29 Mar, 2014 [facility] [address] [id number] [address] [place] [address], [place] [address] 29 Mar, 2014 [facility] [address] [id number] [address] [place] [address], [place] [address] Mar, [facility] [address] [id number] [address] [place] [address], [place] [address] Mar, [facility] [address] [id number] [address] [place] [address], [place] [address] Mar, [facility] [address] [id number] [address] [place] [address], [place] [address] Mar, [facility] [address] [id number] [address] [place] [address], [place] [address] Jan, [facility] [address] [id number] [address] [place] [address] Jan, [facility] [address] [id number] [facility] [place] [address] Jan, [facility] [address] [id number] [address] [place] [address], [place] [address] Jan, [facility] [address] [id number] [address] [place] [address], [place] [address] Dec, [facility] [address] [id number] [address] [place] [address], [place] [address] Dec, [facility] [address] [id number] [address] [place] [address], [place] [address] Dec, [facility] [address] [id number] [address] [place] [address], [place] [address] Dec, [facility] [address] [id number] [address] [place] [address], [place] [address] Dec, [facility] [address] [id number] [address] [place] [address], [place] [address] Dec, [facility] [address] [id number] [address] [place] [address], [place] [address] Dec, [facility] [address] [id number] [address] [place] [address], [place] [address] Dec, [facility] [address] [id number] [address] [place] [address], [place] [address] Dec, [facility] [address] [id number] [address] [place] [address], [place] [address] Dec, [facility] [facility] [address] [id number] [address] [place] [address], [place] [address] Dec, [facility] [address] [id number] [address] [place] [address], [place] [address] Dec, [facility] [address] [id number] [address] [place] [address], [place] [address] October, [facility] [address] [id number] [address] [place] [address], [place] [address] October, [facility] [address] [id number] [address] [place] [address], [place] [address] October, [facility] [address] [id number] [address] [place] [address], [place] [address] October, [facility] [address] [id number] [address] [place] [address], [place] [address] October, [facility] [address] [id number] [address] [place] [address], [place] [address] October, [facility] [address] [id number] [address] [place] [address], [place] [address] Oct, [facility] [address] [id number] [address] [place] [address], [place] [address] Oct, [facility] [address] [id number] [address] [place] [address], [place] [address] Oct, [facility] [address] [id number] [address] [place] [address], [place] [address] Oct, [facility] [address] [id number] [address] [place] [address], [place] [address] Oct, [facility] [address] [id number] [address] [place] [address], [place] [address] Oct, [facility] [address] [id number] [address] [place] [address], [place] [address] Oct, [facility] [address] [id number] [address] [place] [address], [place] [address] Oct, [facility] [address] [id number] [address] [place] [address], [place] [address] Oct, [facility] [address] [id number] [address] [place] [address], [place] [address] Oct, [facility] [address] [id number] [facility] [place] [address] 08 Oct, 2013 [facility] [address] [id number] [address] [place] [address], [place] [address] 08 Oct, 2013 [facility] [address] [id number] [address] [place] [address], [place] [address] 15 Aug, 2013 [facility] [address] [id number] [address] [place] [address], [place] [address] 15 Aug, 2013 [facility] [address] [id number] [address] [place] [address], [place] [address] Aug, [facility] [address] [id number] [address] [place] [address], [place] [address] Aug, [facility] [address] [id number] [address] [place] [address], [place] [address] 05 Aug, 2013 [facility] [address] [id number] [address] [place] [address], [place] [address] 05 Aug, 2013 [facility] [address] [id number] [address] [place] [address], [place] [address] 04 Aug, 2013 [facility] [address] [id number] [address] [place] [address], [place] [address] Aug, [facility] [address] [id number] [address] [place] [address], [place] [address] Aug, [facility] [address] [id number] [address] [place] [address], [place] [address] Aug, [facility] [address] [id number] [address] [place] [address], [place] [address] Aug, [facility] [address] [id number] [address] [place] [address], [place] [address] Aug, [facility] [address] [id number] [address] [place] [address], [place] [address] Aug, [facility] [address] [id number] [address] [place] [address], [place] [address] 20 Aug, 2013 [facility] [address] [id number] [address] [place] [address], [place] [address] 14 Aug, 2013 [facility] [address] [id number] [address] [place] [address], [place] [address] 14 Aug, 2013 [facility] [address] [id number] [address] [place] [address], [place] [address] 14 Aug, 2013 [facility] [address] [id number] [address] [place] [address], [place] [address] 14 Aug, 2013 [facility] [address] [id number] [address] [place] [address], [place] [address] 07 Aug, 2013 [facility] [address] [id number] [address] [place] [address], [place] [address] 07 Aug, 2013 [facility] [address] [id number] [address] [place] [address], [place] [address] 06 Aug, 2013 [facility] [address] [id number] [address] [place] [address], [place] [address] 06 Aug, 2013 [facility] [address] [id number] [address] [place] [address], [place] [address] 04 Aug, 2013 [facility] [address] [id number] [address] [place] [address], [place] [address] 04 Aug, 2013 [facility] [address] [id number] [address] [place] [address], [place] [address] Aug, [facility] [address] [id number] [address] [place] [address], [place] [address] Jul, [facility] [address] [id number] [address] [place] [address], [place] [address] Jul, [facility] [address] [id number] [address] [place] [address], [place] [address] Jul, [facility] [address] [id number] [address] [place] [address], [place] [address] Jul, [facility] [address] [id number] [address] [place] [address], [place] [address] Jul, [facility] [address] [id number] [address] [place] [address], [place] [address] Jul, [facility] [address] [id number] [address] [place] [address], [place] [address] Jul, [facility] [address] [id number] [address] [place] [address], [place] [address] Jul, [facility] [address] [id number] [address] [place] [address], [place] [address] Jul, [facility] [address] [id number] [address] [place] [address], [place] [address] Jul, [facility] [address] [id number] [address] [place] [address], [place] [address] Jul, [facility] [address] [id number] [address] [place] [address], [place] [address] Jul, [facility] [address] [id number] [address] [place] [address], [place] [address] Jul, [facility] [address] [id number] [address] [place] [address], [place] [address] Jul, [facility] [address] [id number] [address] [place] [address], [place] [address] Jul, [facility] [address] [id number] [address] [place] [address], [place] [address] Jul, [facility] [address] [id number] [address] [place] [address], [place] [address] Jul, [facility] [address] [id number] [address] [place] [address], [place] [address] Jul, [facility] [address] [id number] [address] [place] [address], [place] [address] Jul, [facility] [address] [id number] [address] [place] [address], [place] [address] Jul, [facility] [address] [id number] [address] [place] [address], [place] [address] Jun, [facility] [address] [id number] [address] [place] [address], [place] [address] Jun, [facility] [address] [id number] [address] [place] [address], [place] [address] Jun, [facility] [address] [id number] [address] [place] [address], [place] [address] Jun, [facility] [address] [id number] [address] [place] [address], [place] [address] Jun, [facility] [address] [id number] [address] [place] [address], [place] [address] Jun, [facility] [address] [id number] [address] [place] [address], [place] [address] Jun, [facility] [address] [id number] [address] [place] [address], [place] [address] Jun, [facility] [address] [id number] [address] [place] [address], [place] [address] Jun, [facility] [address] [id number] [address] [place] [address], [place] [address] Jun, [facility] [address] [id number] [address] [place] [address], [place] [address] Jun, [facility] [address] [id number] [address] [place] [address], [place] [address] Jun, [facility] [address] [id number] [address] [place] [address], [place] [address] Jun, [facility] [address] [id number] [address] [place] [address], [place] [address] Jun, [facility] [address] [id number] [address] [place] [address], [place] [address] Jun, [facility] [address] [id number] [address] [place] [address], [place] [address] 18 Jun, 2013 [facility] [address] [id number] [address] [place] [address], [place] [address] 18 Jun, 2013 [facility] [address] [id number] [address] [place] [address], [place] [address] 17 Jun, 2013 [facility] [address] [id number] [address] [place] [address], [place] [address] 17 Jun, 2013 [facility] [address] [id number] [address] [place] [address], [place] [address] 13 Jun, 2013 [facility] [address] [id number] [address] [place] [address], [place] [address] 12 Jun, 2013 [facility] [address] [id number] [address] [place] [address], [place] [address] 12 Jun, 2013 [facility] [address] [id number] [address] [place] [address], [place] [address] 09 Jun, 2013 [facility] [address] [id number] [address] [place] [address], [place] [address] 05 Jun, 2013 [facility] [address] [id number] [address] [place] [address], [place] [address] 05 Jun, 2013 [facility] [address] [id number] [address] [place] [address], [place] [address] 04 Jun, 2013 [facility] [address] [id number] [address] [place] [address], [place] [address] 04 Jun, 2013 [facility] [address] [id number] [address] [place] [address], [place] [address] 17 May, 2013 [facility] [address] [id number] [address] [place] [address], [place] [address] 17 May, 2013 [facility] [address] [id number] [address] [place] [address], [place] [address] May, [facility] [address] [id number] [address] [place] [address], [place] [address] May, [facility] [address] [id number] [address] [place] [address], [place] [address] May, [facility] [address] [id number] [address] [place] [address], [place] [address] May, [facility] [address] [id number] [address] [place] [address], [place] [address] Apr, [facility] [address] [id number] [address] [place] [address], [place] [address] Apr, [facility] [address] [id number] [address] [place] [address], [place] [address] Apr, [facility] [address] [id number] [address] [place] [address], [place] [address] Apr, [facility] [address] [id number] [address] [place] [address], [place] [address] Apr, [facility] [address] [id number] [address] [place] [address], [place] [address] Apr, [facility] [address] [id number] [address] [place] [address], [place] [address] Apr, [facility] [address] [id number] [address] [place] [address] Apr, [facility] [address] [id number] [address] [place] [address] 26 Mar, 2013 [facility] [address] [id number] [address] [place] [address] 24 Sep, 2012 [facility] [address] [id number] [address] [place] [address], [place] [address] 17 Mar, 2013 [facility] [address] [id number] [address] [place] [address] 17 Mar, 2012 [facility] [address] [id number] [address] [place] [address] 11 Mar, 2012 [facility] [address] [id number] [address] [place] [address] 10 Mar, 2013 [facility] [address] [id number] [address] [place] [address], [place] [address] 05 Mar, 2013 [facility] [address] [id number] [address] [place] [address], [place] [address] 04 Mar, 2013 [facility] [address] [id number] [address] [place] [address], [place] [address] Jan, [facility] [address] [id number] [address] [place] [address], [place] [address] Jan, [facility] [address] [id number] [address] [place] [address], [place] [address] Jan, [facility] [address] [id number] [address] [place] [address], [place] [address] Jan, [facility] [address] [id number] [address] [place] [address], [place] [address] Jan, [facility] [address] [id number] [address] [place] [address], [place] [address] Jan, [facility] [address] [id number] [address] [place] [address], [place] [address] Dec, [facility] [address] [id number] [address] [place] [address], [place] [address] Dec, [facility] [address] [id number] [address] [place] [address], [place] [address] Dec, [facility] [address] [id number] [address] [place] [address], [place] [address] Dec, [facility] [address] [id number] [address] [place] [address], [place] [address] 18 Dec, 2012 [facility] [address] [id number] [address] [place] [address], [place] [address] 17 Dec, 2012 [facility] [address] [id number] [address] [place] [address], [place] [address] 16 Dec, 2012 [facility] [address] [id number] [address] [place] [address], [place] [address] 16 Dec, 2012 [facility] [address] [id number] [address] [place] [address], [place] [address] 15 Dec, 2012 [facility] [address] [id number] [address] [place] [address], [place] [address] 10 Dec, 2012 [facility] [address] [id number] [address] [place] [address], [place] [address] Dec, [facility] [address] [id number] [address] [place] [address], [place] [address] Dec, [facility] [address] [id number] [address] [place] [address], [place] [address] Dec, [facility] [address] [id number] [address] [place] [address], [place] [address] Dec, [facility] [address] [id number] [address] [place] [address], [place] [address] Dec, [facility] [address] [id number] [address] [place] [address], [place] [address] Dec, [facility] [address] [id number] [address] [place] [address], [place] [address] October, [facility] [address] [id number] [address] [place] [address], [place] [address] October, [facility] [address] [id number] [address] [place] [address], [place] [address] October, [facility] [address] [id number] [address] [place] [address], [place] [address] October, [facility] [address] [id number] [address] [place] [address], [place] [address] October, [facility] [address] [id number] [address] [place] [address], [place] [address] October, [facility] [address] [id number] [address] [place] [address], [place] [address] October, [facility] [address] [id number] [address] [place] [address], [place] [address] Oct, [facility] [address] [id number] [address] [place] [address], [place] [address] Oct, [facility] [address] [id number] [address] [place] [address], [place] [address] Oct, [facility] [address] [id number] [address] [place] [address], [place] [address] Oct, [facility] [address] [id number] [address] [place] [address], [place] [address] Oct, [facility] [address] [id number] [address] [place] [address], [place] [address] 18 Oct, 2012 [facility] [address] [id number] [address] [place] [address], [place] [address] Oct, [facility] [address] [id number] [address] [place] [address], [place] [address] 15 Oct, 2012 [facility] [address] [id number] [address] [place] [address], [place] [address] Oct, [facility] [address] [id number] [address] [place] [address], [place] [address] Oct, [facility] [address] [id number] [address] [place] [address], [place] [address] Oct, [facility] [address] [id number] [address] [place] [address], [place] [address] Oct, [facility] [address] [id number] [address] [place] [address], [place] [address] Aug, [facility] [address] [id number] [address] [place] [address], [place] [address] Aug, [facility] [address] [id number] [address] [place] [address], [place] [address] Aug, [facility] [address] [id number] [address] [place] [address], [place] [address] 06 Aug, 2012 [facility] [address] [id number] [address] [place] [address], [place] [address] 05 Aug, 2012 [facility] [address] [id number] [address] [place] [address], [place] [address] 05 Aug, 2012 [facility] [address] [id number] [address] [place] [address], [place] [address] 20 Aug, 2012 [facility] [address] [id number] [address] [place] [address], [place] [address] 14 Aug, 2012 [facility] [address] [id number] [address] [place] [address], [place] [address] 12 Aug, 2012 [facility] [address] [id number] [address] [place] [address], [place] [address] 11 Aug, 2012 [facility] [address] [id number] [address] [place] [address], [place] [address] 29 Jul, 2012 [facility] [address] [id number] [address] [place] [address], [place] [address] 15 Jul, 2012 [facility] [address] [id number] [address] [place] [address], [place] [address] 08 Jul, 2012 [facility] [address] [id number] [address] [place] [address], [place] [address] 20 Jun, 2012 [facility] [address] [id number] [address] [place] [address], [place] [address] 18 Jun, 2012 [facility] [address] [id number] [address] [place] [address], [place] [address] 18 Jun, 2012 [facility] [address] [id number] [address] [place] [address], [place] [address] 18 Jun, 2012 [facility] [address] [id number] [address] [place] [address], [place] [address] 18 Jun, 2012 [facility] [address] [id number] [address] [place] [address], [place] [address] 14 Jun, 2012 [facility] [address] [id number] [address] [place] [address], [place] [address] 14 Jun, 2012 [facility] [address] [id number] [address] [place] [address], [place] [address] 13 Jun, 2012 [facility] [address] [id number] [address] [place] [address], [place] [address] 13 Jun, 2012 [facility] [address] [id number] [address] [place] [address], [place] [address] 11 Jun, 2012 [facility] [address] [id number] [address] [place] [address], [place] [address] 11 Jun, 2012 [facility] [address] [id number] [address] [place] [address], [place] [address] 11 Jun, 2012 [facility] [address] [id number] [address] [place] [address], [place] [address] 11 Jun, 2012 [facility] [address] [id number] [address] [place] [address], [place] [address] 07 Jun, 2012 [facility] [address] [id number] [address] [place] [address], [place] [address] Jun, [facility] [address] [id number] [address] [place] [address], [place] [address] 06 Jun, 2012 [facility] [address] [id number] [address] [place] [address], [place] [address] Jun, [facility] [address] [id number] [address] [place] [address], [place] [address] Jun, [facility] [address] [id number] [address] [place] [address], [place] [address] Jun, [facility] [address] [id number] [address] [place] [address], [place] [address] 05 Jun, 2012 [facility] [address] [id number] [address] [place] [address], [place] [address] 05 Jun, 2012 [facility] [address] [id number] [address] [place] [address] Jun, [facility] [address] [id number] [address] [place] [address], [place] [address] Jun, [facility] [address] [id number] [address] [place] [address] May, [facility] [address] [id number] [address] [place] [address] May, [facility] [address] [id number] [address] [place] [address] May, [facility] [address] [id number] [address] [place] [address], [place] [address] May, [facility] [address] [id number] [address] [place] [address] May, [facility] [address] [id number] [address] [place] [address] May, [facility] [address] [id number] [address] [place] [address] May, [facility] [address] [id number] [address] [place] [address] May, [facility] [address] [id number] [address] [place] [address] Apr, [facility] [address] [id number] [address] [place] [address] 30 Apr, 2012 [facility] [address] [id number] [address] [place] [address] 29 Apr, 2012 [facility] [address] [id number] [address] [place] [address] Apr, [facility] [address] [id number] [address] [place] [address] Apr, [facility] [address] [id number] [address] [place] [address] Apr, [facility] [address] [id number] [address] [place] [address], [place] [address] Apr, [facility] [address] [id number] [address] [place] [address], [place] [address] Apr, [facility] [address] [id number] [address] [place] [address], [place] [address] Apr, [facility] [address] [id number] [address] [place] [address], [place] [address] 08 Apr, 2012 [facility] [address] [id number] [address] [place] [address], [place] [address] Apr, [facility] [address] [id number] [address] [place] [address], [place] [address] Apr, [facility] [address] [id number] [address] [place] [address], [place] [address] 19 Mar, 2012 [facility] [address] [id number] [address] [place] [address], [place] [address] 18 Mar, 2012 [facility] [address] [id number] [address] [place] [address], [place] [address] Mar, [facility] [address] [id number] [address] [place] [address], [place] [address] Mar, [facility] [address] [id number] [address] [place] [id number] Mar, [facility] [address] [id number] [address] [place] [id number] Mar, [facility] [address] [id number] [address] [place] [address] Mar, [facility] [address] [id number] [address] [place] [address], [place] [address] Jan, [facility] [address] [id number] [address] [place] [address], [place] [address] Jan, [facility] [address] [id number] [address] [place] [id number] Jan, [facility] [address] [id number] [address] [place] [address], [place] [id number] Jan, [facility] [address] [id number] [address] [place] [address], [place] [address] Jan, [facility] [address] [id number] [address] [place] [address], [place] [address] Jan, [facility] [address] [id number] [address] [place] [address], [place] [address] Jan, [facility] [address] [id number] [address] [place] [address], [place] [address] Jan, [facility] [address] [id number] [address] [place] [address], [place] [address] Jan, [facility] [address] [id number] [address] [place] [address], [place] [address] Jan, [facility] [address] [id number] [address] [place] [address], [place] [address] Jan, [facility] [address] [id number] [address] [place] [address], [place] [address] Dec, [facility] [address] [id number] [address] [place] [address], [place] [address] Dec, [facility] [address] [id number] [address] [place] [address], [place] [address] Dec, [facility] [address] [id number] [address] [place] [address], [place] [address] Dec, [facility] [address] [id number] [address] [place] [address], [place] [address] Dec, [facility] [address] [id number] [address] [place] [address], [place] [address] Dec, [facility] [address] [id number] [address] [place] [address], [place] [address] Dec, [facility] [address] [id number] [address] [place] [address], [place] [address] 17 Jan, 2012 [facility] [address] [id number] [address] [place] [address], [place] [address] 16 Jan, 2012 [facility] [address] [id number] [address] [place] [address], [place] [address] Dec, [facility] [address] [id number] [address] [place] [address], [place] [address] Dec, [facility] [address] [id number] [address] [place] [address], [place] [address] Dec, [facility] [address] [id number] [address] [place] [address], [place] [address] Dec, [facility] [address] [id number] [address] [place] [address], [place] [address] Dec, [facility] [address] [id number] [address] [place] [address], [place] [address] Dec, [facility] [address] [id number] [address] [place] [address], [place] [address] Dec, [facility] [address] [id number] [address] [place] [address], [place] [address] 15 Dec, 2011 [facility] [address] [id number] [address] [place] [address], [place] [address] Dec, [facility] [address] [id number] [address] [place] [address], [place] [address] 05 Dec, 2011 [facility] [address] [id number] [address] [place] [address], [place] [address] October, [facility] [address] [id number] [address] [place] [address], [place] [address] October, [facility] [address] [id number] [address] [place] [address], [place] [address] October, [facility] [address] [id number] [address] [place] [address], [place] [address] October, [facility] [address] [id number] [address] [place] [address], [place] [address] October, [facility] [address] [id number] [address] [place] [address], [place] [address] October, [facility] [address] [id number] [address] [place] [address], [place] [address] Oct, [facility] [address] [id number] [address] [place] [address], [place] [address] Oct, [facility] [address] [id number] [address] [place] [address], [place] [address] Oct, [facility] [address] [id number] [address] [place] [address], [place] [address] Oct, [facility] [address] [id number] [address] [place] [address], [place] [address] Oct, [facility] [address] [id number] [address] [place] [address], [place] [address] Oct, [facility] [address] [id number] [address] [place] [address], [place] [address] Oct, [facility] [address] [id number] [address] [place] [address], [place] [address] Aug, [facility] [address] [id number] [address] [place] [address], [place] [address] Aug, [facility] [address] [id number] [address] [place] [address], [place] [address] Aug, [facility] [address] [id number] [address] [place] [address], [place] [address] Aug, [facility] [address] [id number] [address] [place] [address], [place] [address] Aug, [facility] [address] [id number] [address] [place] [address], [place] [address] Aug, [facility] [address] [id number] [address] [place] [address], [place] [address] Aug, [facility] [address] [id number] [address] [place] [address], [place] [address] Aug, [facility] [address] [id number] [address] [place] [address], [place] [address] Aug, [facility] [address] [id number] [address] [place] [address], [place] [address] Jul, [facility] [address] [id number] [address] [place] [address], [place] [address] Jul, [facility] [address] [id number] [address] [place] [address], [place] [address] Jul, [facility] [address] [id number] [address] [place] [address], [place] [address] Jul, [facility] [address] [id number] [address] [place] [address], [place] [address] Jun, [facility] [address] [id number] [address] [place] [address], [place] [address] Jun, [facility] [address] [id number] [address] [place] [address], [place] [address] May, [facility] [address] [id number] [address] [place] [address], [place] [address] May, [facility] [address] [id number] [address] [place] [address], [place] [address] May, [facility] [address] [id number] [address] [place] [address], [place] [address] May, [facility] [address] [id number] [address] [place] [address], [place] [address] May, [facility] [address] [id number] [address] [place] [address], [place] [address] Apr, [facility] [address] [id number] [address] [place] [address], [place] [address] Apr, [facility] [address] [id number] [address] [place] [address] Apr, [facility] [address] [id number] [address] [place] [address] Jan, [facility] [address] [id number] [address] [place] [address] Dec, [facility] [address] [id number] [address] [place] [address] October, [facility] [address] [id number] [address] [place] [address] Jun, [facility] [address] [id number] [address] [place] [address] Apr, [facility] [address] [id number] [address] [place] [address] Apr, [facility] [address] [facility] [id number] [address] [place] [address] Apr, [facility] [address] [id number] [address] [place] [address] Jun, IMMUNIZATIONS No Known Immunizations SOCIAL HISTORY [...]
--- OUTSIDE RECORDS SUMMARY | 2020-01-25 13:23 | XMS REPORT ---
Author Author Moreno Ana Doctor Organization [facility] Address Unknown Phone Unavailable Care Team Providers Care Panman Name Role Phone Migration, Doctor Unavailable Unavailable PROBLEMS Type Condition ICD9-CM Code EAK08-CG Code Onset Dates Condition S tatus SNOMED Code Problem Chronic hepatitis C without hepatic coma B18.2 Active 754930681 Problem Cannabis abuse F12.10 Active 41319 009 Problem Bipolar 1 disorder F31.9 Active 3 69759327 Problem Attention deficit hyperactivity disorder (ADHD), combi luciano type F90.2 Active 96860211 Problem Attention deficit R41.840 Active 76 611051 Problem Hot flashes due to menopause N95.1 A ctive 229898265 Problem H/O laminectomy Z98.89 Active 1616 14059 Problem Other chronic pain G89.29 Active 8 6437651 Problem Anxiety disorder, unspecified type F41.9 Active 031453565 Problem Bipolar disorder, in partial remission, most rec ent episode hypomanic F31.71 Active [id number] ALLERGIES No Information ENCOUNTERS Encounter Location Date Diagnosis [facility] [address] [id number] [address] [place] [id number] Oct, [facility] [address] [facility] [id number] [address] [place] [address] Oct, [facility] [address] [facility] [id number] [address] [place] [address] Aug, [facility] [address] [facility] [id number] [address] [place] [address] Jul, [facility] [address] [facility] [id number] [address] [place] [address] Jul, [facility] [address] [facility] [id number] [address] [place] [address] Apr, [facility] [address] [facility] [id number] [address] [place] [address] Mar, Hot flashes due to menopause N95.1 ; Anxiety disorder, unspecified type F41.9 ; Low back pain M54.5 and Encounter for immunization Z23 [facility] [address] [facility] [id number] [address] [place] [address] Dec, Other chronic pain G89.29 an d Low back pain M54.5 [facility] [address] [facility] [id number] [address] [place] [address] October, [facility] [address] [facility] [id number] [address] [place] [address] October, [facility] [address] [facility] [id number] [address] [place] [address] October, [facility] [address] [facility] [id number] [address] [place] [address] October, Other chronic pain G89.29 an d Chronic hepatitis C without hepatic coma B18.2 [facility] [address] [facility] [id number] [address] [place] [address] Aug, Bipolar disorder, in partial remission, most recent episode hypomanic F31.71 ; Attention deficit hyperactivity disorder (ADHD), combined type F90.2 and Anxiety disorder, unspecified type F41.9 [facility] [address] [facility] [id number] [address] [place] [address] Aug, [facility] [address] [facility] [id number] [address] [place] [address] Aug, Bipolar disorder, in partial remission, most recent episode hypomanic F31.71 [facility] [address] [facility] [id number] [address] [place] [address] Aug, [facility] [address] [facility] [id number] [address] [place] [address] Aug, Bipolar disorder, in partial remission, most recent episode hypomanic F31.71 [facility] [address] [facility] [id number] [address] [place] [address] Aug, Bipolar disorder, in partial remission, most recent episode hypomanic F31.71 ; Attention deficit hyperactivity disorder (ADHD), combined type F90.2 and Anxiety disorder, unspecified type F41.9 [facility] [address] [id number] [address] [place] [address] Aug, Low back pain M54.5 and Pain in left wrist M25.532 [facility] [address] [id number] [address] [place] [address] Aug, [facility] [address] [id number] [address] [place] [address] Jun, [facility] [address] [id number] [address] [place] [address] Apr, Bipolar disorder, in partial remission, most recent episode hypomanic F31.71 [facility] [address] [id number] [address] [place] [address] Apr, [facility] [address] [id number] [address] [place] [address] Apr, Bipolar disorder, in partial remission, most recent episode hypomanic F31.71 ; Attention deficit hyperactivity disorder (ADHD), combined type F90.2 ; Anxiety disorder, unspecified type F41.9 and Other parts counterman (current) drug therapy Z79.899 [facility] [address] [id number] [address] [place] [address] Apr, Bipolar disorder, in partial remission, most recent episode hypomanic F31.71 [facility] [address] [id number] [address] [place] [address] Apr, Bipolar disorder, in partial remission, most recent episode hypomanic F31.71 [facility] [address] [id number] [address] [place] [address] Mar, [facility] [address] [id number] [address] [place] [address] Mar, Bipolar disorder, in partial remission, most recent episode hypomanic F31.71 ; Encounter for immunization Z23 and Low back pain M54.5 [facility] [address] [id number] [address] [place] [address] Mar, Bipolar disorder, in partial remission, most recent episode hypomanic F31.71 [facility] [address] [id number] [address] [place] [address] Mar, Bipolar disorder, in partial remission, most recent episode hypomanic F31.71 [facility] [address] [id number] [address] [place] [address] Jan, Bipolar disorder, in partial remission, most recent episode hypomanic F31.71 [facility] [address] [id number] [address] [place] [address] Jan, Bipolar disorder, in partial remission, most recent episode hypomanic F31.71 [facility] [address] [facility] [id number] [address] [place] [address] Dec, Bipolar disorder, in partial remission, most recent episode hypomanic F31.71 [facility] [address] [id number] [address] [place] [address] Dec, Bipolar disorder, in partial remission, most recent episode hypomanic F31.71 ; Attention deficit hyperactivity disorder (ADHD), combined type F90.2 ; Anxiety disorder, unspecified type F41.9 and Other residential (current) drug therapy Z79.899 [facility] [address] [id number] [address] [place] [address] Dec, Bipolar disorder, in partial remission, most recent episode hypomanic F31.71 [facility] [address] [id number] [address] [place] [address] Dec, Bipolar disorder, in partial remission, most recent episode hypomanic F31.71 [facility] [address] [id number] [address] [place] [phone] October, Bipolar disorder, in partial remission, most recent episode hypomanic F31.71 [facility] [address] [id number] [address] [place] [address] October, [facility] [address] [id number] [address] [place] [address] October, [facility] [address] [id number] [address] [place] [address] Oct, Bipolar disorder, in partial remission, most recent episode hypomanic F31.71 ; Attention deficit hyperactivity disorder (ADHD), combined type F90.2 ; Anxiety disorder, unspecified type F41.9 and Encounter for drug screening Z02.83 [facility] [address] [id number] [address] [place] [address] Oct, Bipolar disorder, in partial remission, most recent episode hypomanic F31.71 [facility] [address] [facility] [id number] [address] [place] [address] Oct, Bipolar disorder, in partial remission, most recent episode hypomanic F31.71 [facility] [address] [facility] [id number] [address] [place] [address] Aug, Bipolar disorder, in partial remission, most recent episode hypomanic F31.71 [facility] [address] [facility] [id number] [address] [place] [address] Aug, Bipolar disorder, in partial remission, most recent episode hypomanic F31.71 [facility] [address] [facility] [id number] [address] [place] [address] Aug, Bipolar disorder, in partial remission, most recent episode hypomanic F31.71 [facility] [address] [id number] [address] [place] [address] Jul, Bipolar disorder, in partial remission, most recent episode hypomanic F31.71 ; Attention deficit hyperactivity disorder (ADHD), combined type F90.2 and Anxiety disorder, unspecified type F41.9 [facility] [address] [id number] [address] [place] [address] Jul, Bipolar disorder, in partial remission, most recent episode hypomanic F31.71 [facility] [address] [id number] [address] [place] [address] Jun, Bipolar disorder, in partial remission, most recent episode hypomanic F31.71 [facility] [address] [id number] [address] [place] [address] May, Bipolar disorder, in partial remission, most recent episode hypomanic F31.71 [facility] [address] [id number] [address] [place] [address] May, Bipolar disorder, in partial remission, most recent episode hypomanic F31.71 [facility] [address] [id number] [address] [place] [address] Apr, [facility] [address] [facility] [id number] [address] [place] [address] Apr, Bipolar disorder, in partial remission, most recent episode hypomanic F31.71 ; Attention deficit hyperactivity disorder (ADHD), combined type F90.2 ; Anxiety disorder, unspecified type F41.9 and Cannabis abuse F12.10 [facility] [address] [id number] [address] [place] [address] Apr, Attention deficit hyperactiv ity disorder (ADHD), combined type F90.2 [facility] [address] [facility] [id number] [address] [place] [address] Mar, Attention deficit hyperactiv ity disorder (ADHD), combined type F90.2 [facility] [address] [facility] [id number] [address] [place] [address] 14 Mar, 2017 Anxiety disorder, unspecifie d type F41.9 [facility] [address] [facility] [id number] [address] [place] [address] 18 Jan, 2017 Attention deficit hyperactiv ity disorder (ADHD), combined type F90.2 [facility] [address] [facility] [id number] [address] [place] [address] 16 Jan, 2017 Anxiety disorder, unspecifie d type F41.9 [place] [id number] [facility] [id number] [address] [place] [address] Jan, Other chronic pain G89.29 ; Chronic hepatitis C without hepatic coma B18.2 and Bipolar 1 disorder F31.9 [facility] [address] [facility] [id number] [address] [place] [address] Dec, Attention deficit hyperactiv ity disorder (ADHD), combined type F90.2 [facility] [address] [facility] [id number] [address] [place] [address] Dec, Bipolar disorder, in partial remission, most recent episode hypomanic F31.71 ; Attention deficit hyperactivity disorder (ADHD), combined type F90.2 and Anxiety disorder, unspecified type F41.9 [place] [address] [facility] [id number] [address] [place] [address] Dec, Bipolar disorder, in partial remission, most recent episode hypomanic F31.71 ; Attention deficit hyperactivity disorder (ADHD), combined type F90.2 and Anxiety disorder, unspecified type F41.9 [facility] [address] [place] [id number] [address] [place] [address] Dec, Bipolar 1 disorder F31.9 and Attention deficit R41.840 [place] [address] [place] [id number] [address] [place] [address] Oct, Other chronic pain G89.29 ; Alopecia L65.9 and Screening, lipid Z13.220 [place] [address] [facility] [id number] [address] [place] [address] Oct, [place] [address] [place] [id number] [address] [place] [address] Aug, [place] [address] [place] [id number] [address] [place] [address] Aug, Eustachian tube dysfunction, right H69.81 ; Vertigo R42 and Other chronic pain G89.29 [place] [address] [place] [id number] [address] [place] [address] Aug, [facility] [address] [id number] [address] [place] [address] Jun, [facility] [address] [id number] [address] [place] [address] Jun, Low back pain M54.5 and Othe r chronic pain G89.29 [facility] [address] [id number] [address] [place] [address] Jun, [facility] [address] [id number] [address] [place] [address] May, [facility] [address] [id number] [address] [place] [address] Jan, [facility] [address] [id number] [address] [place] [address] Dec, [facility] [address] [id number] [address] [place] [address] Dec, [facility] [address] [id number] [address] [place] [address] Jun, [facility] [address] [id number] [address] [place] [address] Apr, Eustachian tube dysfunction, unspecified laterality H69.80 ; Hot flashes N95.1 and Encounter for immunization Z23 [facility] [address] [id number] [address] [place] [address] Jan, [facility] [address] [id number] [address] [place] [address] Jan, [facility] [address] [id number] [address] [place] [address] Jan, [facility] [address] [facility] [id number] [address] [place] [address] Jan, [facility] [address] [id number] [address] [place] [address] Jan, Encounter to establish care V65.8 ; Bipolar 1 disorder 296.7 ; Abdominal pain 789.00 ; Constipation 564.00 ; Hard of hearing 389.9 and Drug abuse 305.90 [facility] [address] [id number] [address] [place] [address] Dec, [facility] [address] [facility] [id number] [address] [place] [address] October, [facility] [address] [id number] [address] [place] [address] October, [facility] [address] [id number] [address] [place] [address] Oct, [facility] [address] [id number] [address] [place] [address] Oct, [facility] [address] [facility] [id number] [address] [place] [address] Oct, [facility] [address] [id number] [address] [place] [address] Aug, [facility] [address] [id number] [address] [place] [address] Aug, [facility] [address] [facility] [id number] [address] [place] [address] Aug, [facility] [address] [id number] [address] [place] [address] Aug, [facility] [address] [id number] [address] [place] [address] Aug, [facility] [address] [id number] [address] [place] [address] Aug, [facility] [address] [id number] [address] [place] [address] Aug, [facility] [address] [id number] [address] [place] [address] Aug, [facility] [address] [id number] [address] [place] [address], [place] [address] Aug, 2014 [facility] [address] [id number] [address] [place] [address], [place] [address] Aug, 2014 [facility] [address] [id number] [address] [place] [address], [place] [address] Aug, 2014 [facility] [address] [id number] [address] [place] [address], [place] [address] Aug, 2014 [facility] [address] [id number] [address] [place] [address], [place] [address] Aug, 2014 [facility] [address] [id number] [address] [place] [address], [place] [address] Aug, 2014 [facility] [address] [id number] [address] [place] [address], [place] [address] Aug, [facility] [address] [id number] [address] [place] [address], [place] [address] Jul, [facility] [address] [id number] [address] [place] [address], [place] [address] Jul, [facility] [address] [id number] [address] [place] [address], [place] [address] Jul, [facility] [address] [id number] [address] [place] [address], [place] [address] Jul, [facility] [address] [id number] [address] [place] [address], [place] [address] Jul, [facility] [address] [id number] [address] [place] [address], [place] [address] Jul, [facility] [address] [id number] [address] [place] [address], [place] [address] Jul, [facility] [address] [id number] [address] [place] [address], [place] [address] Jul, [facility] [address] [id number] [address] [place] [address], [place] [address] Jun, [facility] [address] [id number] [address] [place] [address], [place] [address] Jun, [facility] [address] [id number] [address] [place] [address], [place] [address] Jun, [facility] [address] [id number] [address] [place] [address], [place] [address] Jun, [facility] [address] [id number] [address] [place] [address], [place] [address] Jun, [facility] [address] [id number] [address] [place] [address], [place] [address] Jun, [facility] [address] [id number] [address] [place] [address], [place] [address] Jun, [facility] [address] [id number] [address] [place] [address], [place] [address] Jun, [facility] [address] [id number] [address] [place] [address], [place] [address] Jun, [facility] [address] [id number] [address] [place] [address], [place] [address] Jun, [facility] [address] [id number] [address] [place] [address], [place] [address] Jun, [facility] [address] [id number] [address] [place] [address], [place] [address] May, [facility] [address] [id number] [address] [place] [address], [place] [address] May, [facility] [address] [id number] [address] [place] [address], [place] [address] May, [facility] [address] [id number] [address] [place] [address], [place] [address] May, [facility] [address] [id number] [address] [place] [address], [place] [address] May, [facility] [address] [id number] [address] [place] [address], [place] [address] May, [facility] [address] [id number] [address] [place] [address], [place] [address] May, [facility] [address] [id number] [address] [place] [address], [place] [address] Apr, [facility] [address] [id number] [address] [place] [address], [place] [address] Apr, [facility] [address] [id number] [address] [place] [address], [place] [address] Apr, [facility] [address] [id number] [address] [place] [address], [place] [address] Apr, [facility] [address] [id number] [address] [place] [address], [place] [address] Apr, [facility] [address] [id number] [address] [place] [address], [place] [address] Apr, [facility] [address] [id number] [address] [place] [address], [place] [address] Mar, [facility] [address] [id number] [address] [place] [address], [place] [address] Mar, [facility] [address] [id number] [address] [place] [address], [place] [address] Mar, [facility] [address] [id number] [address] [place] [address], [place] [address] Mar, [facility] [address] [id number] [address] [place] [address], [place] [address] Mar, [facility] [address] [id number] [address] [place] [address], [place] [address] Mar, [facility] [address] [id number] [address] [place] [address], [place] [address] Jan, [facility] [address] [id number] [address] [place] [address], [place] [address] Jan, [facility] [address] [id number] [address] [place] [address], [place] [address] Jan, [facility] [address] [id number] [address] [place] [address], [place] [address] Jan, [facility] [address] [id number] [address] [place] [address], [place] [address] Dec, [facility] [address] [id number] [address] [place] [address], [place] [id number] Dec, [facility] [address] [id number] [address] [place] [address], [place] [address] Dec, [facility] [address] [id number] [address] [place] [address], [place] [id number] Dec, [facility] [address] [id number] [address] [place] [address], [place] [address] Dec, [facility] [address] [id number] [address] [place] [address], [place] [address] Dec, [facility] [address] [id number] [address] [place] [address], [place] [address] Dec, [facility] [address] [id number] [address] [place] [address], [place] [address] Dec, [facility] [address] [id number] [address] [place] [address], [place] [address] Dec, [facility] [address] [id number] [address] [place] [address], [place] [address] Dec, [facility] [address] [id number] [address] [place] [address], [place] [id number] Dec, [facility] [address] [id number] [address] [place] [address], [place] [address] Dec, [facility] [address] [id number] [address] [place] [address], [place] [address] October, [facility] [address] [id number] [address] [place] [address], [place] [address] October, [facility] [address] [id number] [address] [place] [address], [place] [address] October, [facility] [address] [id number] [address] [place] [address], [place] [address] October, [facility] [address] [id number] [address] [place] [address], [place] [address] October, [facility] [address] [id number] [address] [place] [address], [place] [address] October, [facility] [address] [id number] [address] [place] [address], [place] [address] Oct, [facility] [address] [id number] [address] [place] [address], [place] [address] Oct, [facility] [address] [id number] [address] [place] [address], [place] [address] Oct, [facility] [address] [id number] [address] [place] [address], [place] [address] Oct, [facility] [address] [id number] [address] [place] [address], [place] [address] Oct, [facility] [address] [id number] [address] [place] [address], [place] [address] Oct, [facility] [address] [id number] [address] [place] [address], [place] [address] Oct, [facility] [address] [id number] [address] [place] [address], [place] [address] Oct, [facility] [address] [id number] [address] [place] [address], [place] [address] Oct, [facility] [address] [id number] [address] [place] [address], [place] [address] Oct, [facility] [address] [id number] [address] [place] [address], [place] [address] Oct, [facility] [address] [id number] [facility] [place] [facility] [place] [address] 08 Oct, 2013 [facility] [address] [id number] [facility] [place] [address] 15 Aug, 2013 [facility] [address] [id number] [facility] [place] [address] 15 Aug, 2013 [facility] [address] [id number] [address] [place] [address], [place] [address] Aug, [facility] [address] [id number] [address] [place] [address], [place] [address] Aug, [facility] [address] [id number] [address] [place] [address], [place] [address] Aug, [facility] [address] [id number] [address] [place] [address], [place] [address] Aug, [facility] [address] [id number] [address] [place] [address], [place] [address] Aug, [facility] [address] [id number] [address] [place] [address], [place] [address] Aug, [facility] [address] [id number] [address] [place] [address], [place] [address] Aug, [facility] [address] [id number] [address] [place] [address], [place] [address] Aug, [facility] [address] [id number] [address] [place] [address], [place] [address] Aug, [facility] [address] [id number] [address] [place] [address], [place] [address] Aug, [facility] [address] [id number] [address] [place] [address], [place] [address] Aug, [facility] [address] [id number] [address] [place] [address], [place] [address] Aug, [facility] [address] [id number] [address] [place] [address], [place] [address] 14 Aug, 2013 [facility] [address] [id number] [address] [place] [address], [place] [address] 14 Aug, 2013 [facility] [address] [id number] [address] [place] [address], [place] [address] 14 Aug, 2013 [facility] [address] [id number] [address] [place] [address], [place] [address] 14 Aug, 2013 [facility] [address] [id number] [address] [place] [address], [place] [address] 07 Aug, 2013 [facility] [address] [id number] [address] [place] [address], [place] [address] 07 Aug, 2013 [facility] [address] [id number] [address] [place] [address], [place] [address] 06 Aug, 2013 [facility] [address] [id number] [address] [place] [address], [place] [address] 06 Aug, 2013 [facility] [address] [id number] [address] [place] [address], [place] [address] 04 Aug, 2013 [facility] [address] [id number] [address] [place] [address], [place] [address] 04 Aug, 2013 [facility] [address] [id number] [address] [place] [address], [place] [address] Aug, [facility] [address] [id number] [address] [place] [address], [place] [address] Jul, [facility] [address] [id number] [address] [place] [address], [place] [address] Jul, [facility] [address] [id number] [address] [place] [address], [place] [address] Jul, [facility] [address] [id number] [address] [place] [address], [place] [address] Jul, [facility] [address] [id number] [address] [place] [address], [place] [address] Jul, [facility] [address] [id number] [address] [place] [address], [place] [address] Jul, [facility] [address] [id number] [address] [place] [address], [place] [address] Jul, [facility] [address] [id number] [address] [place] [address], [place] [address] Jul, [facility] [address] [id number] [address] [place] [address], [place] [address] Jul, [facility] [address] [id number] [address] [place] [address], [place] [address] Jul, [facility] [address] [id number] [address] [place] [address], [place] [address] Jul, [facility] [address] [id number] [address] [place] [address], [place] [address] Jul, [facility] [address] [id number] [address] [place] [address], [place] [address] Jul, [facility] [address] [id number] [address] [place] [address], [place] [address] Jul, [facility] [address] [id number] [address] [place] [address], [place] [address] Jul, [facility] [address] [id number] [address] [place] [address], [place] [address] Jul, [facility] [address] [id number] [address] [place] [address], [place] [address] Jul, [facility] [address] [id number] [address] [place] [address], [place] [address] Jul, [facility] [address] [id number] [address] [place] [address], [place] [address] Jul, [facility] [address] [id number] [address] [place] [address], [place] [address] Jul, [facility] [address] [id number] [address] [place] [address], [place] [address] 31 Jun, 2013 [facility] [address] [id number] [address] [place] [address], [place] [address] 31 Jun, 2013 [facility] [address] [id number] [address] [place] [address], [place] [address] Jun, [facility] [address] [id number] [address] [place] [address], [place] [address] Jun, [facility] [address] [id number] [address] [place] [address], [place] [address] Jun, [facility] [address] [id number] [address] [place] [address], [place] [address] Jun, [facility] [address] [id number] [address] [place] [address], [place] [address] Jun, [facility] [address] [id number] [address] [place] [address], [place] [address] Jun, [facility] [address] [id number] [address] [place] [address], [place] [address] Jun, [facility] [address] [id number] [address] [place] [address], [place] [address] Jun, [facility] [address] [id number] [address] [place] [address], [place] [address] Jun, [facility] [address] [id number] [address] [place] [address], [place] [address] Jun, [facility] [address] [id number] [address] [place] [address], [place] [address] Jun, [facility] [address] [id number] [address] [place] [address], [place] [address] Jun, [facility] [address] [id number] [address] [place] [address], [place] [address] Jun, [facility] [address] [id number] [address] [place] [address], [place] [address] 18 Jun, 2013 [facility] [address] [id number] [address] [place] [address], [place] [address] 18 Jun, 2013 [facility] [address] [id number] [address] [place] [address], [place] [address] 17 Jun, 2013 [facility] [address] [id number] [address] [place] [address], [place] [address] 17 Jun, 2013 [facility] [address] [id number] [address] [place] [address], [place] [address] 13 Jun, 2013 [facility] [address] [id number] [address] [place] [address], [place] [address] 12 Jun, 2013 [facility] [address] [id number] [address] [place] [address], [place] [address] 12 Jun, 2013 [facility] [address] [id number] [address] [place] [address], [place] [address] 09 Jun, 2013 [facility] [address] [id number] [address] [place] [address], [place] [address] 05 Jun, 2013 [facility] [address] [id number] [address] [place] [address], [place] [address] 05 Jun, 2013 [facility] [address] [id number] [address] [place] [address], [place] [address] 04 Jun, 2013 [facility] [address] [id number] [address] [place] [address], [place] [address] 04 Jun, 2013 [facility] [address] [id number] [address] [place] [address], [place] [address] May, [facility] [address] [id number] [address] [place] [address], [place] [address] 17 May, 2013 [facility] [address] [id number] [address] [place] [address], [place] [address] May, [facility] [address] [id number] [address] [place] [address], [place] [address] May, [facility] [address] [id number] [address] [place] [address] [address] May, [facility] [address] [id number] [address] [place] [address], [place] [address] May, [facility] [address] [id number] [address] [place] [address], [place] [address] Apr, [facility] [address] [id number] [address] [place] [address], [place] [address] Apr, [facility] [address] [id number] [address] [place] [address], [place] [address] Apr, [facility] [address] [id number] [address] [place] [address], [place] [address] Apr, [facility] [address] [id number] [address] [place] [address], [place] [address] Apr, [facility] [address] [id number] [address] [place] [address], [place] [address] Apr, [facility] [address] [id number] [address] [place] [address], [place] [address] 15 Apr, 2013 [facility] [address] [id number] [address] [place] [address], [place] [address] Apr, [facility] [address] [id number] [address] [place] [address] 26 Mar, 2013 [facility] [address] [id number] [address] [place] [address] 24 Sep, 2012 [facility] [address] [id number] [address] [place] [address] 17 Sep, 2012 [facility] [address] [id number] [address] [place] [address], [place] [address] 17 Sep, 2012 [facility] [address] [id number] [address] [place] [address] 11 Sep, 2012 [facility] [address] [id number] [address] [place] [address], [place] [address] 10 Mar, 2012 [facility] [address] [id number] [address] [place] [address], [place] [address] 05 Mar, 2013 [facility] [address] [id number] [address] [place] [address], [place] [address] 04 Mar, 2013 [facility] [address] [id number] [address] [place] [address], [place] [address] Jan, [facility] [address] [id number] [address] [place] [address], [place] [address] Jan, [facility] [address] [id number] [address] [place] [address], [place] [address] Jan, [facility] [address] [id number] [address] [place] [address], [place] [address] Jan, [facility] [address] [id number] [address] [place] [address], [place] [address] Jan, [facility] [address] [id number] [address] [place] [address], [place] [address] Jan, [facility] [address] [id number] [address] [place] [address], [place] [address] Dec, [facility] [address] [id number] [address] [place] [address], [place] [address] 24 Dec, 2012 [facility] [address] [id number] [address] [place] [address], [place] [address] Dec, [facility] [address] [id number] [address] [place] [address], [place] [address] Dec, [facility] [address] [id number] [address] [place] [address], [place] [address] 18 Dec, 2012 [facility] [address] [id number] [address] [place] [address], [place] [address] 17 Dec, 2012 [facility] [address] [id number] [address] [place] [address], [place] [address] 16 Dec, 2012 [facility] [address] [id number] [address] [place] [address], [place] [address] 16 Dec, 2012 [facility] [address] [id number] [address] [place] [address], [place] [address] 15 Dec, 2012 [facility] [address] [id number] [address] [place] [address], [place] [address] Dec, [facility] [address] [id number] [address] [place] [address], [place] [address] Dec, [facility] [address] [id number] [address] [place] [address], [place] [address] Dec, [facility] [address] [id number] [address] [place] [address], [place] [address] Dec, [facility] [address] [id number] [address] [place] [address], [place] [address] Dec, [facility] [address] [id number] [address] [place] [address], [place] [address] Dec, [facility] [address] [id number] [address] [place] [address], [place] [address] Dec, [facility] [address] [id number] [address] [place] [address], [place] [address] October, [facility] [address] [id number] [address] [place] [address], [place] [address] October, [facility] [address] [id number] [address] [place] [address], [place] [address] October, [facility] [address] [id number] [address] [place] [address], [place] [address] October, [facility] [address] [id number] [address] [place] [address], [place] [address] October, [facility] [address] [id number] [address] [place] [address], [place] [address] October, [facility] [address] [id number] [address] [place] [address], [place] [address] October, [facility] [address] [id number] [address] [place] [address], [place] [address] 29 Oct, 2012 [facility] [address] [id number] [address] [place] [address], [place] [address] Oct, [facility] [address] [id number] [address] [place] [address], [place] [address] 24 Oct, 2012 [facility] [address] [id number] [address] [place] [address], [place] [address] Oct, [facility] [address] [id number] [address] [place] [address], [place] [address] Oct, [facility] [address] [id number] [address] [place] [address], [place] [address] 18 Oct, 2012 [facility] [address] [id number] [address] [place] [address], [place] [address] 17 Oct, 2012 [facility] [address] [id number] [address] [place] [address], [place] [address] 15 Oct, 2012 [facility] [address] [id number] [address] [place] [address], [place] [address] Oct, [facility] [address] [id number] [address] [place] [address], [place] [address] Oct, [facility] [address] [id number] [address] [place] [address], [place] [address] Oct, [facility] [address] [id number] [address] [place] [address], [place] [address] Oct, [facility] [address] [id number] [address] [place] [address], [place] [address] Aug, [facility] [address] [id number] [address] [place] [address], [place] [address] Aug, [facility] [address] [id number] [address] [place] [address], [place] [address] Aug, [facility] [address] [id number] [address] [place] [address], [place] [address] Aug, [facility] [address] [id number] [address] [place] [address], [place] [address] 05 Aug, 2012 [facility] [address] [id number] [address] [place] [address], [place] [address] 05 Aug, 2012 [facility] [address] [id number] [address] [place] [address], [place] [address] 20 Aug, 2012 [facility] [address] [id number] [address] [place] [address], [place] [address] 14 Aug, 2012 [facility] [address] [id number] [address] [place] [address], [place] [address] 12 Aug, 2012 [facility] [address] [id number] [address] [place] [address], [place] [address] 11 Aug, 2012 [facility] [address] [id number] [address] [place] [address], [place] [address] 29 Jul, 2012 [facility] [address] [id number] [address] [place] [address], [place] [address] 15 Jul, 2012 [facility] [address] [id number] [address] [place] [address], [place] [address] 08 Jul, 2012 [facility] [address] [id number] [address] [place] [address], [place] [address] 20 Jun, 2012 [facility] [address] [id number] [address] [place] [address], [place] [address] 18 Jun, 2012 [facility] [address] [id number] [address] [place] [address], [place] [address] 18 Jun, 2012 [facility] [address] [id number] [address] [place] [address], [place] [address] 18 Jun, 2012 [facility] [address] [id number] [address] [place] [address], [place] [address] 18 Jun, 2012 [facility] [address] [id number] [address] [place] [address], [place] [address] 14 Jun, 2012 [facility] [address] [id number] [address] [place] [address] [address] 14 Jun, 2012 [facility] [address] [id number] [address] [place] [address], [place] [address] 13 Jun, 2012 [facility] [address] [id number] [address] [place] [address], [place] [address] 13 Jun, 2012 [facility] [address] [id number] [address] [place] [address], [place] [address] 11 Jun, 2012 [facility] [address] [id number] [address] [place] [address], [place] [address] 11 Jun, 2012 [facility] [address] [id number] [address] [place] [address], [place] [address] Jun, [facility] [address] [id number] [address] [place] [address], [place] [address] Jun, [facility] [address] [id number] [address] [place] [address], [place] [address] 07 Jun, 2012 [facility] [address] [id number] [address] [place] [address], [place] [address] 07 Jun, 2012 [facility] [address] [id number] [address] [place] [address], [place] [address] Jun, [facility] [address] [id number] [address] [place] [address], [place] [address] 06 Jun, 2012 [facility] [address] [id number] [address] [place] [address], [place] [address] Jun, [facility] [address] [id number] [address] [place] [address], [place] [address] Jun, [facility] [address] [id number] [address] [place] [address], [place] [address] Jun, [facility] [address] [id number] [address] [place] [address], [place] [address] 05 Jun, 2012 [facility] [address] [id number] [address] [place] [address], [place] [address] Jun, [facility] [address] [id number] [address] [place] [address], [place] [address] Jun, [facility] [address] [id number] [address] [place] [address], [place] [address] May, [facility] [address] [id number] [address] [place] [address], [place] [address] May, [facility] [address] [id number] [address] [place] [address], [place] [address] May, [facility] [address] [id number] [address] [place] [address], [place] [address] May, [facility] [address] [id number] [address] [place] [address], [place] [address] May, [facility] [address] [id number] [address] [place] [address], [place] [address] May, [facility] [address] [id number] [address] [place] [address], [place] [address] May, [facility] [address] [id number] [address] [place] [address], [place] [address] May, [facility] [address] [id number] [address] [place] [address], [place] [address] Apr, [facility] [address] [id number] [address] [place] [address], [place] [address] Apr, [facility] [address] [id number] [address] [place] [address], [place] [address] 29 Apr, 2012 [facility] [address] [id number] [address] [place] [address] Apr, [facility] [address] [id number] [address] [place] [address], [place] [address] Apr, [facility] [address] [id number] [address] [place] [address], [place] [address] Apr, [facility] [address] [id number] [address] [place] [address] Apr, [facility] [address] [id number] [address] [place] [address], [place] [address] Apr, [facility] [address] [id number] [address] [place] [address], [place] [address] Apr, [facility] [address] [id number] [address] [place] [address], [place] [address] Apr, [facility] [address] [id number] [address] [place] [address], [place] [address] Apr, [facility] [address] [id number] [address] [place] [address], [place] [address] Apr, [facility] [address] [id number] [address] [place] [address], [place] [address] Mar, [facility] [address] [id number] [address] [place] [address], [place] [address] 18 Mar, 2012 [facility] [address] [id number] [address] [place] [address] Mar, [facility] [address] [id number] [address] [place] [address], [place] [address] Mar, [facility] [address] [id number] [address] [place] [id number] Mar, [facility] [address] [id number] [address] [place] [id number] Mar, [facility] [address] [id number] [address] [place] [address] Mar, [facility] [address] [id number] [address] [place] [address] Jan, [facility] [address] [id number] [address] [place] [address] Jan, [facility] [address] [id number] [address] [place] [id number] Jan, [facility] [address] [id number] [address] [place] [id number] Jan, [facility] [address] [id number] [address] [place] [address], [place] [address] Jan, [facility] [address] [id number] [address] [place] [address], [place] [address] Jan, [facility] [address] [id number] [address] [place] [address], [place] [address] Jan, [facility] [address] [id number] [address] [place] [address], [place] [address] Jan, [facility] [address] [id number] [address] [place] [address], [place] [address] Jan, [facility] [address] [id number] [address] [place] [address], [place] [address] Jan, [facility] [address] [id number] [address] [place] [address], [place] [address] Jan, [facility] [address] [id number] [address] [place] [address], [place] [address] Dec, [facility] [address] [id number] [address] [place] [address], [place] [address] Dec, [facility] [address] [id number] [address] [place] [address], [place] [address] Dec, [facility] [address] [id number] [address] [place] [address], [place] [address] Dec, [facility] [address] [id number] [address] [place] [address], [place] [address] Dec, [facility] [address] [id number] [address] [place] [address], [place] [address] Dec, [facility] [address] [id number] [address] [place] [address], [place] [address] Dec, [facility] [address] [id number] [address] [place] [address], [place] [address] Dec, [facility] [address] [id number] [address] [place] [address], [place] [address] 16 Jan, 2012 [facility] [address] [id number] [address] [place] [address], [place] [address] 13 Jan, 2012 [facility] [address] [id number] [address] [place] [address], [place] [address] 13 Jan, 2012 [facility] [address] [id number] [address] [place] [address], [place] [address] Dec, [facility] [address] [id number] [address] [place] [address], [place] [address] Dec, [facility] [address] [id number] [address] [place] [address], [place] [address] Dec, [facility] [address] [id number] [address] [place] [address], [place] [address] Dec, [facility] [address] [id number] [address] [place] [address], [place] [address] Dec, [facility] [address] [id number] [address] [place] [address], [place] [address] Dec, [facility] [address] [id number] [address] [place] [address], [place] [address] Dec, [facility] [address] [id number] [address] [place] [address], [place] [address] Dec, [facility] [address] [id number] [address] [place] [address], [place] [address] October, [facility] [address] [id number] [address] [place] [address], [place] [address] October, [facility] [address] [id number] [address] [place] [address], [place] [address] October, [facility] [address] [id number] [address] [place] [address], [place] [address] October, [facility] [address] [id number] [address] [place] [address], [place] [address] October, [facility] [address] [id number] [address] [place] [address], [place] [address] October, [facility] [address] [id number] [address] [place] [address], [place] [address] Oct, [facility] [address] [id number] [address] [place] [address], [place] [address] Oct, [facility] [address] [id number] [address] [place] [address], [place] [address] Oct, [facility] [address] [id number] [address] [place] [address], [place] [address] Oct, [facility] [address] [id number] [address] [place] [address], [place] [address] Oct, [facility] [address] [id number] [address] [place] [address], [place] [address] Oct, [facility] [address] [id number] [address] [place] [address], [place] [address] Oct, [facility] [address] [id number] [address] [place] [address], [place] [address] Aug, [facility] [address] [id number] [address] [place] [address], [place] [address] Aug, [facility] [address] [id number] [address] [place] [address], [place] [address] Aug, [facility] [address] [id number] [address] [place] [address], [place] [address] Aug, [facility] [address] [id number] [address] [place] [address], [place] [address] Aug, [facility] [address] [id number] [address] [place] [address], [place] [address] Aug, [facility] [address] [id number] [address] [place] [address], [place] [address] Aug, [facility] [address] [id number] [address] [place] [address], [place] [address] Aug, [facility] [address] [id number] [address] [place] [address], [place] [address] Aug, [facility] [address] [id number] [address] [place] [address], [place] [address] Jul, [facility] [address] [id number] [address] [place] [address], [place] [address] Jul, [facility] [address] [id number] [address] [place] [address], [place] [address] Jul, [facility] [address] [id number] [address] [place] [address], [place] [address] Jul, [facility] [address] [id number] [address] [place] [address], [place] [address] Jun, [facility] [address] [id number] [address] [place] [address], [place] [address] Jun, [facility] [address] [id number] [address] [place] [address], [place] [address] May, [facility] [address] [id number] [address] [place] [address], [place] [address] May, [facility] [address] [id number] [address] [place] [address], [place] [address] May, [facility] [address] [id number] [address] [place] [address], [place] [address] May, [facility] [address] [id number] [address] [place] [address], [place] [address] May, [facility] [address] [id number] [address] [place] [address], [place] [address] 28 Apr, 2011 [facility] [address] [id number] [address] [place] [address], [place] [address] 28 Apr, 2011 [facility] [address] [id number] [address] [place] [address], [place] [address] 10 Apr, 2011 [facility] [address] [id number] [address] [place] [address] Jan, [facility] [address] [id number] [address] [place] [address] Dec, [facility] [address] [id number] [address] [place] [address] October, [facility] [address] [facility] [id number] [address] [place] [address] Jun, [facility] [address] [id number] [address] [place] [id number] Apr, [facility] [address] [facility] [id number] [address] [place] [address] Apr, [facility] [address] [facility] [id number] [address] [place] [address] Apr, [facility] [address] [facility] [id number] [address] [place] [address] Jun, IMMUNIZATIONS No Known Immunizations SOCIAL HISTORY [...]
--- OUTSIDE RECORDS SUMMARY | 2020-01-25 13:23 | XMS REPORT ---
Author Author Moreno Ana Doctor Organization [facility] Address Unknown Phone Unavailable Care Team Providers Care Team Primary Care Physician Name Role Phone Migration, Doctor Unavailable Unavailable PROBLEMS Type Condition ICD9-CM Code LCH12-[place] Code Onset Dates Condition S tatus SNOMED Code Problem Chronic hepatitis C without hepatic coma B18.2 Active 550954326 Problem Cannabis abuse F12.10 Active 68047 009 Problem Bipolar 1 disorder F31.9 Active 3 93484854 Problem Attention deficit hyperactivity disorder (ADHD), combi luciano type F90.2 Active 09796995 Problem Attention deficit R41.840 Active 76 249153 Problem Hot flashes due to menopause N95.1 A ctive 135394343 Problem H/O laminectomy Z98.89 Active 1616 18945 Problem Other chronic pain G89.29 Active 8 3271018 Problem Anxiety disorder, unspecified type F41.9 Active 779818612 Problem Bipolar disorder, in partial remission, most rec ent episode hypomanic F31.71 Active [id number] ALLERGIES No Information ENCOUNTERS Encounter Location Date Diagnosis [facility] [address] [id number] [address] [place] [id number] Oct, [facility] [address] [facility] [id number] [address] [place] [phone] Oct, [facility] [address] [facility] [id number] [address] [place] [phone] Aug, [facility] [address] [facility] [id number] [address] [place] [phone] Jul, [facility] [address] [facility] [id number] [address] [place] [phone] Jul, [facility] [address] [facility] [id number] [address] [place] [id number] Apr, [facility] [address] [facility] [id number] [address] [place] [id number] Mar, Hot flashes due to menopause N95.1 ; Anxiety disorder, unspecified type F41.9 ; Low back pain M54.5 and Encounter for immunization Z23 [facility] [address] [facility] [id number] [address] [place] [address] Dec, Other chronic pain G89.29 an d Low back pain M54.5 [facility] [address] [facility] [id number] [address] [place] [address] October, [facility] [address] [facility] [id number] [address] [place] [phone] October, [facility] [address] [facility] [id number] [address] [place] [address] October, [facility] [address] [facility] [id number] [address] [place] [address] October, Other chronic pain G89.29 an d Chronic hepatitis C without hepatic coma B18.2 [facility] [address] [facility] [id number] [address] [place] [address] Aug, Bipolar disorder, in partial remission, most recent episode hypomanic F31.71 ; Attention deficit hyperactivity disorder (ADHD), combined type F90.2 and Anxiety disorder, unspecified type F41.9 [facility] [address] [facility] [id number] [address] [place] [id number] Aug, [facility] [address] [facility] [id number] [address] [place] [phone] Aug, Bipolar disorder, in partial remission, most recent episode hypomanic F31.71 [facility] [address] [facility] [id number] [address] [place] [address] Aug, [facility] [address] [facility] [id number] [address] [place] [id number] Aug, Bipolar disorder, in partial remission, most recent episode hypomanic F31.71 [facility] [address] [facility] [id number] [address] [place] [address] Aug, Bipolar disorder, in partial remission, most recent episode hypomanic F31.71 ; Attention deficit hyperactivity disorder (ADHD), combined type F90.2 and Anxiety disorder, unspecified type F41.9 [facility] [address] [id number] [address] [place] [id number] Aug, Low back pain M54.5 and Pain in left wrist M25.532 [facility] [address] [id number] [address] [place] [phone] Aug, [facility] [address] [id number] [address] [place] [address] Jun, [facility] [address] [id number] [address] [place] [address] Apr, Bipolar disorder, in partial remission, most recent episode hypomanic F31.71 [facility] [address] [id number] [address] [place] [address] Apr, [facility] [address] [id number] [address] [place] [id number] Apr, Bipolar disorder, in partial remission, most recent episode hypomanic F31.71 ; Attention deficit hyperactivity disorder (ADHD), combined type F90.2 ; Anxiety disorder, unspecified type F41.9 and 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 [facility] [address] [id number] [address] [place] [address] Apr, Bipolar disorder, in partial remission, most recent episode hypomanic F31.71 [facility] [address] [id number] [address] [place] [phone] Apr, Bipolar disorder, in partial remission, most recent episode hypomanic F31.71 [facility] [address] [id number] [address] [place] [address] Mar, [facility] [address] [id number] [address] [place] [address] Mar, Bipolar disorder, in partial remission, most recent episode hypomanic F31.71 ; Encounter for immunization Z23 and Low back pain M54.5 [facility] [address] [id number] [address] [place] [address] Mar, Bipolar disorder, in partial remission, most recent episode hypomanic F31.71 [facility] [address] [id number] [address] [place] [address] Mar, Bipolar disorder, in partial remission, most recent episode hypomanic F31.71 [facility] [address] [id number] [address] [place] [phone] Jan, Bipolar disorder, in partial remission, most recent episode hypomanic F31.71 [facility] [address] [id number] [address] [place] [address] Jan, Bipolar disorder, in partial remission, most recent episode hypomanic F31.71 [facility] [address] [facility] [id number] [address] [place] [phone] Dec, Bipolar disorder, in partial remission, most recent episode hypomanic F31.71 [facility] [address] [id number] [address] [place] [phone] Dec, Bipolar disorder, in partial remission, most recent episode hypomanic F31.71 ; Attention deficit hyperactivity disorder (ADHD), combined type F90.2 ; Anxiety disorder, unspecified type F41.9 and Other group home (current) drug therapy Z79.899 [facility] [address] [id number] [address] [place] [id number] Dec, Bipolar disorder, in partial remission, most recent episode hypomanic F31.71 [facility] [address] [id number] [address] [place] [id number] Dec, Bipolar disorder, in partial remission, most recent episode hypomanic F31.71 [facility] [address] [id number] [address] [place] [phone] October, Bipolar disorder, in partial remission, most recent episode hypomanic F31.71 [facility] [address] [id number] [address] [place] [id number] October, [facility] [address] [id number] [address] [place] [phone] October, [facility] [address] [id number] [address] [place] [id number] Oct, Bipolar disorder, in partial remission, most recent episode hypomanic F31.71 ; Attention deficit hyperactivity disorder (ADHD), combined type F90.2 ; Anxiety disorder, unspecified type F41.9 and Encounter for drug screening Z02.83 [facility] [address] [id number] [address] [place] [id number] Oct, Bipolar disorder, in partial remission, most recent episode hypomanic F31.71 [facility] [address] [facility] [id number] [address] [place] [id number] Oct, Bipolar disorder, in partial remission, most recent episode hypomanic F31.71 [facility] [address] [facility] [id number] [address] [place] [id number] Aug, Bipolar disorder, in partial remission, most recent episode hypomanic F31.71 [facility] [address] [facility] [id number] [address] [place] [id number] Aug, Bipolar disorder, in partial remission, most recent episode hypomanic F31.71 [facility] [address] [facility] [id number] [address] [place] [id number] Aug, Bipolar disorder, in partial remission, most recent episode hypomanic F31.71 [facility] [address] [id number] [address] [place] [id number] Jul, Bipolar disorder, in partial remission, most recent episode hypomanic F31.71 ; Attention deficit hyperactivity disorder (ADHD), combined type F90.2 and Anxiety disorder, unspecified type F41.9 [facility] [address] [id number] [address] [place] [phone] Jul, Bipolar disorder, in partial remission, most recent episode hypomanic F31.71 [facility] [address] [id number] [address] [place] [id number] Jun, Bipolar disorder, in partial remission, most recent episode hypomanic F31.71 [facility] [address] [id number] [address] [place] [phone] May, Bipolar disorder, in partial remission, most recent episode hypomanic F31.71 [facility] [address] [id number] [address] [place] [phone] May, Bipolar disorder, in partial remission, most recent episode hypomanic F31.71 [facility] [address] [id number] [address] [place] [id number] Apr, [facility] [address] [facility] [id number] [address] [place] [id number] Apr, Bipolar disorder, in partial remission, most recent episode hypomanic F31.71 ; Attention deficit hyperactivity disorder (ADHD), combined type F90.2 ; Anxiety disorder, unspecified type F41.9 and Cannabis abuse F12.10 [facility] [address] [id number] [address] [place] [id number] Apr, Attention deficit hyperactiv ity disorder (ADHD), combined type F90.2 [facility] [address] [facility] [id number] [address] [place] [id number] Mar, Attention deficit hyperactiv ity disorder (ADHD), combined type F90.2 [facility] [address] [facility] [id number] [address] [place] [id number] 14 Mar, 2017 Anxiety disorder, unspecifie d type F41.9 [facility] [address] [facility] [id number] [address] [place] [phone] 18 Jan, 2017 Attention deficit hyperactiv ity disorder (ADHD), combined type F90.2 [facility] [address] [facility] [id number] [address] [place] [id number] 16 Jan, 2017 Anxiety disorder, unspecifie d type F41.9 [place] [address] [facility] [id number] [address] [place] [address] Jan, Other chronic pain G89.29 ; Chronic hepatitis C without hepatic coma B18.2 and Bipolar 1 disorder F31.9 [facility] [address] [facility] [id number] [address] [place] [id number] Dec, Attention deficit hyperactiv ity disorder (ADHD), combined type F90.2 [facility] [address] [facility] [id number] [address] [place] [phone] Dec, Bipolar disorder, in partial remission, most recent episode hypomanic F31.71 ; Attention deficit hyperactivity disorder (ADHD), combined type F90.2 and Anxiety disorder, unspecified type F41.9 [place] [address] [facility] [id number] [address] [place] [phone] Dec, Bipolar disorder, in partial remission, most recent episode hypomanic F31.71 ; Attention deficit hyperactivity disorder (ADHD), combined type F90.2 and Anxiety disorder, unspecified type F41.9 [facility] [address] [place] [id number] [address] [place] [address] Dec, Bipolar 1 disorder F31.9 and Attention deficit R41.840 [place] [address] [place] [id number] [address] [place] [id number] Oct, Other chronic pain G89.29 ; Alopecia L65.9 and Screening, lipid Z13.220 [place] [address] [facility] [id number] [address] [place] [id number] Oct, [place] [address] [place] [id number] [address] [place] [address] Aug, [place] [address] [place] [id number] [address] [place] [address] Aug, Eustachian tube dysfunction, right H69.81 ; Vertigo R42 and Other chronic pain G89.29 [place] [address] [place] [id number] [address] [place] [id number] Aug, [facility] [address] [id number] [address] [place] [id number] Jun, [facility] [address] [id number] [address] [place] [phone] Jun, Low back pain M54.5 and Othe r chronic pain G89.29 [facility] [address] [id number] [address] [place] [address] Jun, [facility] [address] [id number] [address] [place] [phone] May, [facility] [address] [id number] [address] [place] [phone] Jan, [facility] [address] [id number] [address] [place] [phone] Dec, [facility] [address] [id number] [address] [place] [phone] Dec, [facility] [address] [id number] [address] [place] [id number] Jun, [facility] [address] [id number] [address] [place] [id number] Apr, Eustachian tube dysfunction, unspecified laterality H69.80 ; Hot flashes N95.1 and Encounter for immunization Z23 [facility] [address] [id number] [address] [place] [phone] Jan, [facility] [address] [id number] [address] [place] [address] Jan, [facility] [address] [id number] [address] [place] [phone] Jan, [facility] [address] [facility] [id number] [address] [place] [id number] Jan, [facility] [address] [id number] [address] [place] [phone] Jan, Encounter to establish care V65.8 ; Bipolar 1 disorder 296.7 ; Abdominal pain 789.00 ; Constipation 564.00 ; Hard of hearing 389.9 and Drug abuse 305.90 [facility] [address] [id number] [address] [place] [id number] Dec, [facility] [address] [facility] [id number] [address] [place] [phone] October, [facility] [address] [id number] [address] [place] [phone] October, [facility] [address] [id number] [address] [place] [phone] Oct, [facility] [address] [id number] [address] [place] [phone] Oct, [facility] [address] [facility] [id number] [address] [place] [id number] Oct, [facility] [address] [id number] [address] [place] [phone] Aug, [facility] [address] [id number] [address] [place] [address] Aug, [facility] [address] [facility] [id number] [address] [place] [address] Aug, [facility] [address] [id number] [address] [place] [phone] Aug, [facility] [address] [id number] [address] [place] [phone] Aug, [facility] [address] [id number] [address] [place] [phone] Aug, [facility] [address] [id number] [address] [place] [phone] Aug, [facility] [address] [id number] [address] [place] [phone] Aug, [facility] [address] [id number] [address] [place] [address], [place] [address] Aug, 2014 [facility] [address] [id number] [address] [place] [address], [place] [address] Aug, 2014 [facility] [address] [id number] [address] [place] [address], [place] [address] Aug, 2014 [facility] [address] [id number] [address] [place] [address], [place] [address] Aug, 2014 [facility] [address] [id number] [address] [place] [address], [place] [address] Aug, 2014 [facility] [address] [id number] [address] [place] [address], [place] [address] Aug, 2014 [facility] [address] [id number] [address] [place] [address], [place] [address] Aug, [facility] [address] [id number] [address] [place] [address], [place] [address] Jul, [facility] [address] [id number] [address] [place] [address], [place] [address] Jul, [facility] [address] [id number] [address] [place] [address], [place] [address] Jul, [facility] [address] [id number] [address] [place] [address], [place] [address] Jul, [facility] [address] [id number] [address] [place] [address], [place] [address] Jul, [facility] [address] [id number] [address] [place] [address], [place] [address] Jul, [facility] [address] [id number] [address] [place] [address], [place] [address] Jul, [facility] [address] [id number] [address] [place] [address], [place] [address] Jul, [facility] [address] [id number] [address] [place] [address], [place] [address] Jun, [facility] [address] [id number] [address] [place] [address], [place] [address] Jun, [facility] [address] [id number] [address] [place] [address], [place] [address] Jun, [facility] [address] [id number] [address] [place] [address], [place] [address] Jun, [facility] [address] [id number] [address] [place] [address], [place] [address] Jun, [facility] [address] [id number] [address] [place] [address], [place] [address] Jun, [facility] [address] [id number] [address] [place] [address], [place] [address] Jun, [facility] [address] [id number] [address] [place] [address], [place] [address] Jun, [facility] [address] [id number] [address] [place] [address], [place] [address] Jun, [facility] [address] [id number] [address] [place] [address], [place] [address] Jun, [facility] [address] [id number] [address] [place] [address], [place] [address] Jun, [facility] [address] [id number] [address] [place] [address], [place] [address] May, [facility] [address] [id number] [address] [place] [address], [place] [address] May, [facility] [address] [id number] [address] [place] [address], [place] [address] May, [facility] [address] [id number] [address] [place] [address], [place] [address] May, [facility] [address] [id number] [address] [place] [address], [place] [address] May, [facility] [address] [id number] [address] [place] [address], [place] [address] May, [facility] [address] [id number] [address] [place] [address], [place] [address] May, [facility] [address] [id number] [address] [place] [address], [place] [address] Apr, [facility] [address] [id number] [address] [place] [address], [place] [address] Apr, [facility] [address] [id number] [address] [place] [address], [place] [address] Apr, [facility] [address] [id number] [address] [place] [address], [place] [address] Apr, [facility] [address] [id number] [address] [place] [address], [place] [address] Apr, [facility] [address] [id number] [address] [place] [address], [place] [address] Apr, [facility] [address] [id number] [address] [place] [address], [place] [address] Mar, [facility] [address] [id number] [address] [place] [address], [place] [address] Mar, [facility] [address] [id number] [address] [place] [address], [place] [address] Mar, [facility] [address] [id number] [address] [place] [address], [place] [address] Mar, [facility] [address] [id number] [address] [place] [address], [place] [address] Mar, [facility] [address] [id number] [address] [place] [address], [place] [address] Mar, [facility] [address] [id number] [address] [place] [address], [place] [address] Jan, [facility] [address] [id number] [address] [place] [address], [place] [address] Jan, [facility] [address] [id number] [address] [place] [address], [place] [address] Jan, [facility] [address] [id number] [address] [place] [address], [place] [address] Jan, [facility] [address] [id number] [address] [place] [address], [place] [address] Dec, [facility] [address] [id number] [address] [place] [address], [place] [address] Dec, [facility] [address] [id number] [address] [place] [address], [place] [address] Dec, [facility] [address] [id number] [address] [place] [address], [place] [address] Dec, [facility] [address] [id number] [address] [place] [address], [place] [address] Dec, [facility] [address] [id number] [address] [place] [address], [place] [address] Dec, [facility] [address] [id number] [address] [place] [address], [place] [address] Dec, [facility] [address] [id number] [address] [place] [address], [place] [address] Dec, [facility] [address] [id number] [address] [place] [address], [place] [address] Dec, [facility] [address] [id number] [address] [place] [address], [place] [address] Dec, [facility] [address] [id number] [address] [place] [address], [place] [address] Dec, [facility] [address] [id number] [address] [place] [address], [place] [address] Dec, [facility] [address] [id number] [address] [place] [address], [place] [address] October, [facility] [address] [id number] [address] [place] [address], [place] [address] October, [facility] [address] [id number] [address] [place], [place] [address], [place] [address] October, [facility] [address] [id number] [address] [place] [address], [place] [address] October, [facility] [address] [id number] [address] [place] [address], [place] [address] October, [facility] [address] [id number] [address] [place] [address], [place] [address] October, [facility] [address] [id number] [address] [place] [address], [place] [address] Oct, [facility] [address] [id number] [address] [place] [address], [place] [address] Oct, [facility] [address] [id number] [address] [place] [address], [place] [address] Oct, [facility] [address] [id number] [address] [place] [address], [place] [address] Oct, [facility] [address] [id number] [address] [place] [address], [place] [address] Oct, [facility] [address] [id number] [address] [place] [address], [place] [address] Oct, [facility] [address] [id number] [address] [place] [address], [place] [address] Oct, [facility] [address] [id number] [address] [place] [address], [place] [address] Oct, [facility] [address] [id number] [address] [place] [address], [place] [address] Oct, [facility] [address] [id number] [address] [place] [address], [place] [address] Oct, [facility] [address] [id number] [address] [place] [address], [place] [address] Oct, [facility] [address] [id number] [facility] [place] [address] 08 Oct, 2013 [facility] [address] [id number] [facility] [place] [address] 15 Aug, 2013 [facility] [address] [id number] [facility] [place] [address] 15 Aug, 2013 [facility] [address] [id number] [address] [place] [address], [place] [address] Aug, [facility] [address] [id number] [address] [place] [address], [place] [address] Aug, [facility] [address] [id number] [address] [place] [address], [place] [address] Aug, [facility] [address] [id number] [address] [place] [address], [place] [address] Aug, [facility] [address] [id number] [address] [place] [address], [place] [address] Aug, [facility] [address] [id number] [address] [place] [address], [place] [address] Aug, [facility] [address] [id number] [address] [place] [address], [place] [address] Aug, [facility] [address] [id number] [address] [place] [address], [place] [address] Aug, [facility] [address] [id number] [address] [place] [address], [place] [address] Aug, [facility] [address] [id number] [address] [place] [address], [place] [address] Aug, [facility] [address] [id number] [address] [place] [address], [place] [address] Aug, [facility] [address] [id number] [address] [place] [address], [place] [address] Aug, [facility] [address] [id number] [address] [place] [address], [place] [address] 14 Aug, 2013 [facility] [address] [id number] [address] [place] [address], [place] [address] 14 Aug, 2013 [facility] [address] [id number] [address] [place] [address], [place] [address] 14 Aug, 2013 [facility] [address] [id number] [address] [place] [address], [place] [address] 14 Aug, 2013 [facility] [address] [id number] [address] [place] [address], [place] [address] 07 Aug, 2013 [facility] [address] [id number] [address] [place] [address], [place] [address] 07 Aug, 2013 [facility] [address] [id number] [address] [place] [address], [place] [address] 06 Aug, 2013 [facility] [address] [id number] [address] [place] [address], [place] [address] 06 Aug, 2013 [facility] [address] [id number] [address] [place] [address], [place] [address] 04 Aug, 2013 [facility] [address] [id number] [address] [place] [address], [place] [address] 04 Aug, 2013 [facility] [address] [id number] [address] [place] [address], [place] [address] Aug, [facility] [address] [id number] [address] [place] [address], [place] [address] Jul, [facility] [address] [id number] [address] [place] [address], [place] [address] Jul, [facility] [address] [id number] [address] [place] [address], [place] [address] Jul, [facility] [address] [id number] [address] [place] [address], [place] [address] Jul, [facility] [address] [id number] [address] [place] [address], [place] [address] Jul, [facility] [address] [id number] [address] [place] [address], [place] [address] Jul, [facility] [address] [id number] [address] [place] [address], [place] [address] Jul, [facility] [address] [id number] [address] [place] [address], [place] [address] Jul, [facility] [address] [id number] [address] [place] [address], [place] [address] Jul, [facility] [address] [id number] [address] [place] [address], [place] [address] Jul, [facility] [address] [id number] [address] [place] [address], [place] [address] Jul, [facility] [address] [id number] [address] [place] [address], [place] [address] Jul, [facility] [address] [id number] [address] [place] [address], [place] [address] Jul, [facility] [address] [id number] [address] [place] [address], [place] [address] Jul, [facility] [address] [id number] [address] [place] [address], [place] [address] Jul, [facility] [address] [id number] [address] [place] [address], [place] [address] Jul, [facility] [address] [id number] [address] [place] [address], [place] [address] Jul, [facility] [address] [id number] [address] [place] [address], [place] [address] Jul, [facility] [address] [id number] [address] [place] [address], [place] [address] Jul, [facility] [address] [id number] [address] [place] [address], [place] [address] Jul, [facility] [address] [id number] [address] [place] [address], [place] [address] 31 Jun, 2013 [facility] [address] [id number] [address] [place] [address], [place] [address] 31 Jun, 2013 [facility] [address] [id number] [address] [place] [address], [place] [address] Jun, [facility] [address] [id number] [address] [place] [address], [place] [address] Jun, [facility] [address] [id number] [address] [place] [address], [place] [address] Jun, [facility] [address] [id number] [address] [place] [address], [place] [address] Jun, [facility] [address] [id number] [address] [place] [address], [place] [address] Jun, [facility] [address] [id number] [address] [place] [address], [place] [address] Jun, [facility] [address] [id number] [address] [place] [address], [place] [address] Jun, [facility] [address] [id number] [address] [place] [address], [place] [address] Jun, [facility] [address] [id number] [address] [place] [address], [place] [address] Jun, [facility] [address] [id number] [address] [place] [address], [place] [address] Jun, [facility] [address] [id number] [address] [place] [address], [place] [address] Jun, [facility] [address] [id number] [address] [place] [address], [place] [address] Jun, [facility] [address] [id number] [address] [place] [address], [place] [address] Jun, [facility] [address] [id number] [address] [place] [address], [place] [address] 18 Jun, 2013 [facility] [address] [id number] [address] [place] [address], [place] [address] 18 Jun, 2013 [facility] [address] [id number] [address] [place] [address], [place] [address] 17 Jun, 2013 [facility] [address] [id number] [address] [place] [address], [place] [address] 17 Jun, 2013 [facility] [address] [id number] [address] [place] [address], [place] [address] 13 Jun, 2013 [facility] [address] [id number] [address] [place] [address], [place] [address] 12 Jun, 2013 [facility] [address] [id number] [address] [place] [address], [place] [address] 12 Jun, 2013 [facility] [address] [id number] [address] [place] [address], [place] [address] 09 Jun, 2013 [facility] [address] [id number] [address] [place] [address], [place] [address] 05 Jun, 2013 [facility] [address] [id number] [address] [place] [address], [place] [address] 05 Jun, 2013 [facility] [address] [id number] [address] [place] [address], [place] [address] 04 Jun, 2013 [facility] [address] [id number] [address] [place] [address], [place] [address] 04 Jun, 2013 [facility] [address] [id number] [address] [place] [address], [place] [address] May, [facility] [address] [id number] [address] [place] [address], [place] [address] 17 May, 2013 [facility] [address] [id number] [address] [place] [address], [place] [address] May, [facility] [address] [id number] [address] [place] [address], [place] [address] May, [facility] [address] [id number] [address] [place] [address] [address] May, [facility] [address] [id number] [address] [place] [address], [place] [address] May, [facility] [address] [id number] [address] [place] [address], [place] [address] Apr, [facility] [address] [id number] [address] [place] [address], [place] [address] Apr, [facility] [address] [id number] [address] [place] [address], [place] [address] Apr, [facility] [address] [id number] [address] [place] [address], [place] [address] Apr, [facility] [address] [id number] [address] [place] [address], [place] [address] Apr, [facility] [address] [id number] [address] [place] [address], [place] [address] Apr, [facility] [address] [id number] [address] [place] [address], [place] [address] 15 Apr, 2013 [facility] [address] [id number] [address] [place] [address], [place] [address] Apr, [facility] [address] [id number] [address] [place] [address] 26 Mar, 2013 [facility] [address] [id number] [address] [place] [address] 24 Sep, 2012 [facility] [address] [id number] [address] [place] [address] 17 Sep, 2012 [facility] [address] [id number] [address] [place] [address], [place] [address] 17 Sep, 2012 [facility] [address] [id number] [address] [place] [address] 11 Sep, 2012 [facility] [address] [id number] [address] [place] [address], [place] [address] 10 Mar, 2012 [facility] [address] [id number] [address] [place] [address], [place] [address] 05 Mar, 2013 [facility] [address] [id number] [address] [place] [address], [place] [address] 04 Mar, 2013 [facility] [address] [id number] [address] [place] [address], [place] [address] Jan, [facility] [address] [id number] [address] [place] [address], [place] [address] Jan, [facility] [address] [id number] [address] [place] [address], [place] [address] Jan, [facility] [address] [id number] [address] [place] [address], [place] [address] Jan, [facility] [address] [id number] [address] [place] [address], [place] [address] Jan, [facility] [address] [id number] [address] [place] [address], [place] [address] Jan, [facility] [address] [id number] [address] [place] [address], [place] [address] Dec, [facility] [address] [id number] [address] [place] [address], [place] [address] 24 Dec, 2012 [facility] [address] [id number] [address] [place] [address], [place] [address] Dec, [facility] [address] [id number] [address] [place] [address], [place] [address] Dec, [facility] [address] [id number] [address] [place] [address], [place] [address] 18 Dec, 2012 [facility] [address] [id number] [address] [place] [address], [place] [address] 17 Dec, 2012 [facility] [address] [id number] [address] [place] [address], [place] [address] 16 Dec, 2012 [facility] [address] [id number] [address] [place] [address], [place] [address] 16 Dec, 2012 [facility] [address] [id number] [address] [place] [address], [place] [address] 15 Dec, 2012 [facility] [address] [id number] [address] [place] [address], [place] [address] Dec, [facility] [address] [id number] [address] [place] [address], [place] [address] Dec, [facility] [address] [id number] [address] [place] [address], [place] [address] Dec, [facility] [address] [id number] [address] [place] [address], [place] [address] Dec, [facility] [address] [id number] [address] [place] [address], [place] [address] Dec, [facility] [address] [id number] [address] [place] [address], [place] [address] Dec, [facility] [address] [id number] [address] [place] [address], [place] [address] Dec, [facility] [address] [id number] [address] [place] [address], [place] [address] October, [facility] [address] [id number] [address] [place] [address], [place] [address] October, [facility] [address] [id number] [address] [place] [address], [place] [address] October, [facility] [address] [id number] [address] [place] [address], [place] [address] October, [facility] [address] [id number] [address] [place] [address], [place] [address] October, [facility] [address] [id number] [address] [place] [address], [place] [address] October, [facility] [address] [id number] [address] [place] [address], [place] [address] October, [facility] [address] [id number] [address] [place] [address], [place] [address] 29 Oct, 2012 [facility] [address] [id number] [address] [place] [address], [place] [address] Oct, [facility] [address] [id number] [address] [place] [address], [place] [address] 24 Oct, 2012 [facility] [address] [id number] [address] [place] [address], [place] [address] Oct, [facility] [address] [id number] [address] [place] [address], [place] [address] Oct, [facility] [address] [id number] [address] [place] [address], [place] [address] 18 Oct, 2012 [facility] [address] [id number] [address] [place] [address], [place] [address] 17 Oct, 2012 [facility] [address] [id number] [address] [place] [address], [place] [address] 15 Oct, 2012 [facility] [address] [id number] [address] [place] [address], [place] [address] Oct, [facility] [address] [id number] [address] [place] [address], [place] [address] Oct, [facility] [address] [id number] [address] [place] [address], [place] [address] Oct, [facility] [address] [id number] [address] [place] [address], [place] [address] Oct, [facility] [address] [id number] [address] [place] [address], [place] [address] Aug, [facility] [address] [id number] [address] [place] [address], [place] [address] Aug, [facility] [address] [id number] [address] [place] [address], [place] [address] Aug, [facility] [address] [id number] [address] [place] [address], [place] [address] Aug, [facility] [address] [id number] [address] [place] [address], [place] [address] 05 Aug, 2012 [facility] [address] [id number] [address] [place] [address], [place] [address] 05 Aug, 2012 [facility] [address] [id number] [address] [place] [address], [place] [address] 20 Aug, 2012 [facility] [address] [id number] [address] [place] [address], [place] [address] 14 Aug, 2012 [facility] [address] [id number] [address] [place] [address], [place] [address] 12 Aug, 2012 [facility] [address] [id number] [address] [place] [address], [place] [address] 11 Aug, 2012 [facility] [address] [id number] [address] [place] [address], [place] [address] 29 Jul, 2012 [facility] [address] [id number] [address] [place] [address], [place] [address] 15 Jul, 2012 [facility] [address] [id number] [address] [place] [address], [place] [address] 08 Jul, 2012 [facility] [address] [id number] [address] [place] [address], [place] [address] 20 Jun, 2012 [facility] [address] [id number] [address] [place] [address], [place] [address] 18 Jun, 2012 [facility] [address] [id number] [address] [place] [address], [place] [address] 18 Jun, 2012 [facility] [address] [id number] [address] [place] [address], [place] [address] 18 Jun, 2012 [facility] [address] [id number] [address] [place] [address], [place] [address] 18 Jun, 2012 [facility] [address] [id number] [address] [place] [address], [place] [address] 14 Jun, 2012 [facility] [address] [id number] [address] [place] [address] [address] 14 Jun, 2012 [facility] [address] [id number] [address] [place] [address], [place] [address] 13 Jun, 2012 [facility] [address] [id number] [address] [place] [address], [place] [address] 13 Jun, 2012 [facility] [address] [id number] [address] [place] [address], [place] [address] 11 Jun, 2012 [facility] [address] [id number] [address] [place] [address], [place] [address] 11 Jun, 2012 [facility] [address] [id number] [address] [place] [address], [place] [address] Jun, [facility] [address] [id number] [address] [place] [address], [place] [address] Jun, [facility] [address] [id number] [address] [place] [address], [place] [address] 07 Jun, 2012 [facility] [address] [id number] [address] [place] [address], [place] [address] 07 Jun, 2012 [facility] [address] [id number] [address] [place] [address], [place] [address] Jun, [facility] [address] [id number] [address] [place] [address], [place] [address] 06 Jun, 2012 [facility] [address] [id number] [address] [place] [address], [place] [address] Jun, [facility] [address] [id number] [address] [place] [address], [place] [address] Jun, [facility] [address] [id number] [address] [place] [address], [place] [address] Jun, [facility] [address] [id number] [address] [place] [address], [place] [address] 05 Jun, 2012 [facility] [address] [id number] [address] [place] [address], [place] [address] Jun, [facility] [address] [id number] [address] [place] [address], [place] [address] Jun, [facility] [address] [id number] [address] [place] [address], [place] [address] May, [facility] [address] [id number] [address] [place] [address], [place] [address] May, [facility] [address] [id number] [address] [place] [address], [place] [address] May, [facility] [address] [id number] [address] [place] [address], [place] [address] May, [facility] [address] [id number] [address] [place] [address], [place] [address] May, [facility] [address] [id number] [address] [place] [address], [place] [address] May, [facility] [address] [id number] [address] [place] [address], [place] [address] May, [facility] [address] [id number] [address] [place] [address], [place] [address] May, [facility] [address] [id number] [address] [place] [address], [place] [address] Apr, [facility] [address] [id number] [address] [place] [address], [place] [address] Apr, [facility] [address] [id number] [address] [place] [address], [place] [address] 29 Apr, 2012 [facility] [address] [id number] [address] [place] [address] Apr, [facility] [address] [id number] [address] [place] [address], [place] [address] Apr, [facility] [address] [id number] [address] [place] [address], [place] [address] Apr, [facility] [address] [id number] [address] [place] [address] Apr, [facility] [address] [id number] [address] [place] [address], [place] [address] Apr, [facility] [address] [id number] [address] [place] [address], [place] [address] Apr, [facility] [address] [id number] [address] [place] [address], [place] [address] Apr, [facility] [address] [id number] [address] [place] [address], [place] [address] Apr, [facility] [address] [id number] [address] [place] [address], [place] [address] Apr, [facility] [address] [id number] [address] [place] [address], [place] [address] Mar, [facility] [address] [id number] [address] [place] [address], [place] [address] 18 Mar, 2012 [facility] [address] [id number] [address] [place] [id number] Mar, [facility] [address] [id number] [address] [place] [address], [place] [address] Mar, [facility] [address] [id number] [address] [place] [id number] Mar, [facility] [address] [id number] [address] [place] [id number] Mar, [facility] [address] [id number] [address] [place] [id number] Mar, [facility] [address] [id number] [address] [place] [id number] Jan, [facility] [address] [id number] [address] [place] [id number] Jan, [facility] [address] [id number] [address] [place] [id number] Jan, [facility] [address] [id number] [address] [place] [id number] Jan, [facility] [address] [id number] [address] [place] [address], [place] [address] Jan, [facility] [address] [id number] [address] [place] [address], [place] [address] Jan, [facility] [address] [id number] [address] [place] [address], [place] [address] Jan, [facility] [address] [id number] [address] [place] [address], [place] [address] Jan, [facility] [address] [id number] [address] [place] [address], [place] [address] Jan, [facility] [address] [id number] [address] [place] [address], [place] [address] Jan, [facility] [address] [id number] [address] [place] [address], [place] [address] Jan, [facility] [address] [id number] [address] [place] [address], [place] [address] Dec, [facility] [address] [id number] [address] [place] [address], [place] [address] Dec, [facility] [address] [id number] [address] [place] [address], [place] [address] Dec, [facility] [address] [id number] [address] [place] [address], [place] [address] Dec, [facility] [address] [id number] [address] [place] [address], [place] [address] Dec, [facility] [address] [id number] [address] [place] [address], [place] [address] Dec, [facility] [address] [id number] [address] [place] [address], [place] [address] Dec, [facility] [address] [id number] [address] [place] [address], [place] [address] Dec, [facility] [address] [id number] [address] [place] [address], [place] [address] 16 Jan, 2012 [facility] [address] [id number] [address] [place] [address], [place] [address] 13 Jan, 2012 [facility] [address] [id number] [address] [place] [address], [place] [address] 13 Jan, 2012 [facility] [address] [id number] [address] [place] [address], [place] [address] Dec, [facility] [address] [id number] [address] [place] [address], [place] [address] Dec, [facility] [address] [id number] [address] [place] [address], [place] [address] Dec, [facility] [address] [id number] [address] [place] [address], [place] [address] Dec, [facility] [address] [id number] [address] [place] [address], [place] [address] Dec, [facility] [address] [id number] [address] [place] [address], [place] [address] Dec, [facility] [address] [id number] [address] [place] [address], [place] [address] Dec, [facility] [address] [id number] [address] [place] [address], [place] [address] Dec, [facility] [address] [id number] [address] [place] [address], [place] [address] October, [facility] [address] [id number] [address] [place] [address], [place] [address] October, [facility] [address] [id number] [address] [place] [address], [place] [address] October, [facility] [address] [id number] [address] [place] [address], [place] [address] October, [facility] [address] [id number] [address] [place] [address], [place] [address] October, [facility] [address] [id number] [address] [place] [address], [place] [address] October, [facility] [address] [id number] [address] [place] [address], [place] [address] Oct, [facility] [address] [id number] [address] [place] [address], [place] [address] Oct, [facility] [address] [id number] [address] [place] [address], [place] [address] Oct, [facility] [address] [id number] [address] [place] [address], [place] [address] Oct, [facility] [address] [id number] [address] [place] [address], [place] [address] Oct, [facility] [address] [id number] [address] [place] [address], [place] [address] Oct, [facility] [address] [id number] [address] [place] [address], [place] [address] Oct, [facility] [address] [id number] [address] [place] [address], [place] [address] Aug, [facility] [address] [id number] [address] [place] [address], [place] [address] Aug, [facility] [address] [id number] [address] [place] [address], [place] [address] Aug, [facility] [address] [id number] [address] [place] [address], [place] [address] Aug, [facility] [address] [id number] [address] [place] [address], [place] [address] Aug, [facility] [address] [id number] [address] [place] [address], [place] [address] Aug, [facility] [address] [id number] [address] [place] [address], [place] [address] Aug, [facility] [address] [id number] [address] [place] [address], [place] [address] Aug, [facility] [address] [id number] [address] [place] [address], [place] [address] Aug, [facility] [address] [id number] [address] [place] [address], [place] [address] Jul, [facility] [address] [id number] [address] [place] [address], [place] [address] Jul, [facility] [address] [id number] [address] [place] [address], [place] [address] Jul, [facility] [address] [id number] [address] [place] [address], [place] [address] Jul, [facility] [address] [id number] [address] [place] [address], [place] [address] Jun, [facility] [address] [id number] [address] [place] [address], [place] [address] Jun, [facility] [address] [id number] [address] [place] [address], [place] [address] May, [facility] [address] [id number] [address] [place] [address], [place] [address] May, [facility] [address] [id number] [address] [place] [address], [place] [address] May, [facility] [address] [id number] [address] [place] [address], [place] [address] May, [facility] [address] [id number] [address] [place] [address], [place] [address] May, [facility] [address] [id number] [address] [place] [address], [place] [address] 28 Apr, 2011 [facility] [address] [id number] [address] [place] [address], [place] [address] 28 Apr, 2011 [facility] [address] [id number] [address] [place] [address], [place] [address] 10 Apr, 2011 [facility] [address] [id number] [address] [place] [id number] Jan, [facility] [address] [id number] [address] [place] [address] Dec, [facility] [address] [id number] [address] [place] [id number] October, [facility] [address] [facility] [id number] [address] [place] [id number] Jun, [facility] [address] [id number] [address] [place] [id number] Apr, [facility] [address] [facility] [id number] [address] [place] [id number] Apr, [facility] [address] [facility] [id number] [address] [place] [id number] Apr, [facility] [address] [facility] [id number] [address] [place] [id number] Jun, IMMUNIZATIONS No Known Immunizations SOCIAL HISTORY [...]
--- OUTSIDE RECORDS SUMMARY | 2020-01-25 13:24 | XMS REPORT ---
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 Name Role Phone Clovis ANEUDY Unavailable PROBLEMS Type Condition ICD9-CM Code MUH09-DL Code Onset Dates Condition S tatus SNOMED Code Problem Chronic hepatitis C without hepatic coma B18.2 Active 548964697 Problem Cannabis abuse F12.10 Active 36644 009 Problem Bipolar 1 disorder F31.9 Active 3 91062595 Problem Attention deficit hyperactivity disorder (ADHD), combi luciano type F90.2 Active 19372033 Problem Attention deficit R41.840 Active 76 737104 Problem Hot flashes due to menopause N95.1 A ctive 717579729 Problem H/O laminectomy Z98.89 Active 1616 02696 Problem Other chronic pain G89.29 Active 8 9672254 Problem Anxiety disorder, unspecified type F41.9 Active 921561439 Problem Bipolar disorder, in partial remission, most rec ent episode hypomanic F31.71 Active [id number] ALLERGIES No Information ENCOUNTERS Encounter Location Date Diagnosis [facility] [address] [id number] [address] [place] [address] [id number] Oct, [facility] [address] [facility] [id number] [address] [place] [address] Oct, [facility] [address] [facility] [id number] [address] [place] [address] Aug, [facility] [address] [facility] [id number] [address] [place] [address] Jul, [facility] [address] [facility] [id number] [address] [place] [address] Jul, [facility] [address] [facility] [id number] [address] [place] [address] Apr, [facility] [address] [id number] [address] [place] [address] Mar, Hot flashes due to menopause N95.1 ; Anxiety disorder, unspecified type F41.9 ; Low back pain M54.5 and Encounter for immunization Z23 [facility] [address] [id number] [address] [place] [address] Dec, Other chronic pain G89.29 an d Low back pain M54.5 [facility] [address] [id number] [address] [place] [address] October, [facility] [address] [id number] [address] [place] [address] October, [facility] [address] [id number] [address] [place] [address] October, [facility] [address] [facility] [id number] [address] [place] [address] October, Other chronic pain G89.29 an d Chronic hepatitis C without hepatic coma B18.2 [facility] [address] [id number] [address] [place] [address] Aug, Bipolar disorder, in partial remission, most recent episode hypomanic F31.71 ; Attention deficit hyperactivity disorder (ADHD), combined type F90.2 and Anxiety disorder, unspecified type F41.9 [facility] [address] [id number] [address] [place] [address] Aug, [facility] [address] [id number] [address] [place] [address] Aug, Bipolar disorder, in partial remission, most recent episode hypomanic F31.71 [facility] [address] [facility] [id number] [address] [place] [address] Aug, [facility] [address] [facility] [id number] [address] [place] [address] Aug, Bipolar disorder, in partial remission, most recent episode hypomanic F31.71 [facility] [address] [id number] [address] [place] [address] Aug, Bipolar disorder, in partial remission, most recent episode hypomanic F31.71 ; Attention deficit hyperactivity disorder (ADHD), combined type F90.2 and Anxiety disorder, unspecified type F41.9 [facility] [address] [id number] [address] [place] [address] Aug, Low back pain M54.5 and Pain in left wrist M25.532 [facility] [address] [id number] [address] [place] [address] Aug, [facility] [address] [id number] [address] [place] [address] Jun, [facility] [address] [id number] [address] [place] [address] Apr, Bipolar disorder, in partial remission, most recent episode hypomanic F31.71 [facility] [address] [id number] [address] [place] [address] Apr, [facility] [address] [id number] [address] [place] [address] Apr, Bipolar disorder, in partial remission, most recent episode hypomanic F31.71 ; Attention deficit hyperactivity disorder (ADHD), combined type F90.2 ; Anxiety disorder, unspecified type F41.9 and Other correction (current) drug therapy Z79.899 [facility] [address] [id number] [address] [place] [address] Apr, Bipolar disorder, in partial remission, most recent episode hypomanic F31.71 [facility] [address] [id number] [address] [place] [address] Apr, Bipolar disorder, in partial remission, most recent episode hypomanic F31.71 [facility] [address] [id number] [address] [place] [address] Mar, [facility] [address] [id number] [address] [place] [address] Mar, Bipolar disorder, in partial remission, most recent episode hypomanic F31.71 ; Encounter for immunization Z23 and Low back pain M54.5 [facility] [address] [id number] [address] [place] [address] 17 Mar, 2018 Bipolar disorder, in partial remission, most recent episode hypomanic F31.71 [facility] [address] [id number] [address] [place] [address] Mar, Bipolar disorder, in partial remission, most recent episode hypomanic F31.71 [facility] [address] [id number] [address] [place] [address] Jan, Bipolar disorder, in partial remission, most recent episode hypomanic F31.71 [facility] [address] [id number] [address] [place] [address] Jan, Bipolar disorder, in partial remission, most recent episode hypomanic F31.71 [facility] [address] [id number] [address] [place] [address] Dec, Bipolar disorder, in partial remission, most recent episode hypomanic F31.71 [facility] [address] [facility] [id number] [address] [place] [address] Dec, Bipolar disorder, in partial remission, most recent episode hypomanic F31.71 ; Attention deficit hyperactivity disorder (ADHD), combined type F90.2 ; Anxiety disorder, unspecified type F41.9 and Other correction (current) drug therapy Z79.899 [facility] [address] [id number] [address] [place] [address] Dec, Bipolar disorder, in partial remission, most recent episode hypomanic F31.71 [facility] [address] [facility] [id number] [address] [place] [address] Dec, Bipolar disorder, in partial remission, most recent episode hypomanic F31.71 [facility] [address] [facility] [id number] [address] [place] [address] October, Bipolar disorder, in partial remission, most recent episode hypomanic F31.71 [facility] [address] [id number] [address] [place] [address] October, [facility] [address] [id number] [address] [place] [address] October, [facility] [address] [id number] [address] [place] [address] Oct, Bipolar disorder, in partial remission, most recent episode hypomanic F31.71 ; Attention deficit hyperactivity disorder (ADHD), combined type F90.2 ; Anxiety disorder, unspecified type F41.9 and Encounter for drug screening Z02.83 [facility] [address] [id number] [address] [place] [address] Oct, Bipolar disorder, in partial remission, most recent episode hypomanic F31.71 [facility] [address] [id number] [address] [place] [address] Oct, Bipolar disorder, in partial remission, most recent episode hypomanic F31.71 [facility] [address] [facility] [id number] [address] [place] [address] Aug, Bipolar disorder, in partial remission, most recent episode hypomanic F31.71 [facility] [address] [facility] [id number] [address] [place] [address] Aug, Bipolar disorder, in partial remission, most recent episode hypomanic F31.71 [facility] [address] [id number] [address] [place] [address] Aug, Bipolar disorder, in partial remission, most recent episode hypomanic F31.71 [facility] [address] [facility] [id number] [address] [place] [address] Jul, Bipolar disorder, in partial remission, most recent episode hypomanic F31.71 ; Attention deficit hyperactivity disorder (ADHD), combined type F90.2 and Anxiety disorder, unspecified type F41.9 [facility] [address] [id number] [address] [place] [address] Jul, Bipolar disorder, in partial remission, most recent episode hypomanic F31.71 [facility] [address] [id number] [address] [place] [address] Jun, Bipolar disorder, in partial remission, most recent episode hypomanic F31.71 [facility] [address] [id number] [address] [place] [address] May, Bipolar disorder, in partial remission, most recent episode hypomanic F31.71 [facility] [address] [id number] [address] [place] [address] May, Bipolar disorder, in partial remission, most recent episode hypomanic F31.71 [facility] [address] [facility] [id number] [address] [place] [address] Apr, [facility] [address] [facility] [id number] [address] [place] [address] Apr, Bipolar disorder, in partial remission, most recent episode hypomanic F31.71 ; Attention deficit hyperactivity disorder (ADHD), combined type F90.2 ; Anxiety disorder, unspecified type F41.9 and Cannabis abuse F12.10 [facility] [address] [facility] [id number] [address] [place] [address] Apr, Attention deficit hyperactiv ity disorder (ADHD), combined type F90.2 [facility] [address] [id number] [address] [place] [address] Mar, Attention deficit hyperactiv ity disorder (ADHD), combined type F90.2 [facility] [address] [id number] [address] [place] [address] 14 Mar, 2017 Anxiety disorder, unspecifie d type F41.9 [facility] [address] [facility] [id number] [address] [place] [address] Jan, Attention deficit hyperactiv ity disorder (ADHD), combined type F90.2 [facility] [address] [place] [id number] [address] [place] [address] Jan, Anxiety disorder, unspecifie d type F41.9 [facility] [address] [place] [id number] [address] [place] [address] Jan, Other chronic pain G89.29 ; Chronic hepatitis C without hepatic coma B18.2 and Bipolar 1 disorder F31.9 [facility] [address] [place] [id number] [address] [place] [address] Dec, Attention deficit hyperactiv ity disorder (ADHD), combined type F90.2 [facility] [address] [place] [id number] [address] [place] [address] Dec, Bipolar disorder, in partial remission, most recent episode hypomanic F31.71 ; Attention deficit hyperactivity disorder (ADHD), combined type F90.2 and Anxiety disorder, unspecified type F41.9 [place] [address] [place] [id number] [place] [address] Dec, Bipolar disorder, in partial remission, most recent episode hypomanic F31.71 ; Attention deficit hyperactivity disorder (ADHD), combined type F90.2 and Anxiety disorder, unspecified type F41.9 [place] [address] [place] [id number] [place] [address] Dec, Bipolar 1 disorder F31.9 and Attention deficit R41.840 [place] [address] [place] [id number] [address] [place] [address] Oct, Other chronic pain G89.29 ; Alopecia L65.9 and Screening, lipid Z13.220 [facility] [address] [place] [id number] [address] [place] [address] Oct, [place] [address] [place] [id number] [place] [address] Aug, [place] [address] [place] [id number] [place] [address] Aug, Eustachian tube dysfunction, right H69.81 ; Vertigo R42 and Other chronic pain G89.29 [facility] [address] [id number] [address] [place] [address] Aug, [facility] [address] [id number] [address] [place] [address] Jun, [facility] [address] [id number] [address] [place] [address] Jun, Low back pain M54.5 and Othe r chronic pain G89.29 [facility] [address] [id number] [address] [place] [address] Jun, [facility] [address] [id number] [address] [place] [address] May, [facility] [address] [id number] [address] [place] [address] Jan, [facility] [address] [id number] [address] [place] [address] Dec, [facility] [address] [id number] [address] [place] [address] Dec, [facility] [address] [id number] [address] [place] [address] Jun, [facility] [address] [facility] [id number] [address] [place] [address] Apr, Eustachian tube dysfunction, unspecified laterality H69.80 ; Hot flashes N95.1 and Encounter for immunization Z23 [facility] [address] [id number] [address] [place] [address] Jan, [facility] [address] [id number] [address] [place] [address] Jan, [facility] [address] [id number] [address] [place] [address] Jan, [facility] [address] [id number] [address] [place] [address] Jan, [facility] [address] [id number] [address] [place] [address] Jan, Encounter to establish care V65.8 ; Bipolar 1 disorder 296.7 ; Abdominal pain 789.00 ; Constipation 564.00 ; Hard of hearing 389.9 and Drug abuse 305.90 [facility] [address] [id number] [address] [place] [address] Dec, [facility] [address] [id number] [address] [place] [address] October, [facility] [address] [id number] [address] [place] [address] October, [facility] [address] [id number] [address] [place] [address] Oct, [facility] [address] [id number] [address] [place] [address] Oct, [facility] [address] [id number] [address] [place] [address] Oct, [facility] [address] [id number] [address] [place] [address] Aug, [facility] [address] [id number] [address] [place] [address] Aug, [facility] [address] [id number] [address] [place] [address] Aug, [facility] [address] [id number] [address] [place] [address] Aug, [facility] [address] [id number] [address] [place] [address] Aug, [facility] [address] [id number] [address] [place] [address] Aug, [facility] [address] [id number] [address] [place] [address] Aug, [facility] [address] [id number] [address] [place] [address], [place] [address] Aug, 2014 [facility] [address] [id number] [address] [place] [address], [place] [address] Aug, 2014 [facility] [address] [id number] [address] [place] [address], [place] [address] Aug, 2014 [facility] [address] [id number] [address] [place] [address], [place] [address] Aug, 2014 [facility] [address] [id number] [address] [place] [address], [place] [address] Aug, 2014 [facility] [address] [id number] [address] [place] [address], [place] [address] Aug, 2014 [facility] [address] [id number] [address] [place] [address], [place] [address] Aug, 2014 [facility] [address] [id number] [address] [place] [address], [place] [address] Aug, [facility] [address] [id number] [address] [place] [address], [place] [address] Jul, [facility] [address] [id number] [address] [place] [address], [place] [address] Jul, [facility] [address] [id number] [address] [place] [address], [place] [address] Jul, [facility] [address] [id number] [address] [place] [address], [place] [address] Jul, [facility] [address] [id number] [address] [place] [address], [place] [address] Jul, [facility] [address] [id number] [address] [place] [address], [place] [address] Jul, [facility] [address] [id number] [address] [place] [address], [place] [address] Jul, [facility] [address] [id number] [address] [place] [address], [place] [address] Jul, [facility] [address] [id number] [address] [place] [address], [place] [address] Jun, [facility] [address] [id number] [address] [place] [address], [place] [address] Jun, [facility] [address] [id number] [address] [place] [address], [place] [address] Jun, [facility] [address] [id number] [address] [place] [address], [place] [address] Jun, [facility] [address] [id number] [address] [place] [address], [place] [address] Jun, [facility] [address] [id number] [address] [place] [address], [place] [address] Jun, [facility] [address] [id number] [address] [place] [address], [place] [address] Jun, [facility] [address] [id number] [address] [place] [address], [place] [address] Jun, [facility] [address] [id number] [address] [place] [address], [place] [address] Jun, [facility] [address] [id number] [address] [place] [address], [place] [address] Jun, [facility] [address] [id number] [address] [place] [address], [place] [address] Jun, [facility] [address] [id number] [address] [place] [address], [place] [address] May, [facility] [address] [id number] [address] [place] [address], [place] [address] May, [facility] [address] [id number] [address] [place] [address], [place] [address] May, [facility] [address] [id number] [address] [place] [address], [place] [address] May, [facility] [address] [id number] [address] [place] [address], [place] [address] May, [facility] [address] [id number] [address] [place] [address], [place] [address] May, [facility] [address] [id number] [address] [place] [address], [place] [address] May, [facility] [address] [id number] [address] [place] [address], [place] [address] Apr, [facility] [address] [id number] [address] [place] [address], [place] [address] Apr, [facility] [address] [id number] [address] [place] [address], [place] [address] Apr, [facility] [address] [id number] [address] [place] [address], [place] [address] Apr, [facility] [address] [id number] [address] [place] [address], [place] [address] Apr, [facility] [address] [id number] [address] [place] [address], [place] [address] Apr, [facility] [address] [id number] [address] [place] [address], [place] [address] Mar, [facility] [address] [id number] [address] [place] [address], [place] [address] 29 Mar, 2014 [facility] [address] [id number] [address] [place] [address], [place] [address] Mar, [facility] [address] [id number] [address] [place] [address], [place] [address] Mar, [facility] [address] [id number] [address] [place] [address], [place] [address] Mar, [facility] [address] [id number] [address] [place] [address], [place] [address] Mar, [facility] [address] [id number] [address] [place] [address], [place] [address] Jan, [facility] [address] [id number] [address] [place] [address], [place] [address] Jan, [facility] [address] [id number] [address] [place] [address], [place] [address] Jan, [facility] [address] [id number] [address] [place] [address], [place] [address] Jan, [facility] [address] [id number] [address] [place] [address], [place] [address] Dec, [facility] [address] [id number] [address] [place] [address], [place] [address] Dec, [facility] [address] [id number] [address] [place] [address], [place] [address] Dec, [facility] [address] [id number] [address] [place] [address], [place] [address] Dec, [facility] [address] [id number] [address] [place] [address], [place] [address] Dec, [facility] [address] [id number] [address] [place] [address], [place] [address] Dec, [facility] [address] [id number] [address] [place] [address], [place] [address] Dec, [facility] [address] [id number] [address] [place] [address], [place] [address] Dec, [facility] [address] [id number] [address] [place] [address], [place] [address] Dec, [facility] [address] [id number] [address] [place] [address], [place] [address] Dec, [facility] [address] [id number] [address] [place] [address], [place] [address] Dec, [facility] [address] [id number] [address] [place] [address], [place] [address] Dec, [facility] [address] [id number] [address] [place] [address], [place] [address] October, [facility] [address] [id number] [address] [place] [address], [place] [address] October, [facility] [address] [id number] [address] [place] [address], [place] [address] October, [facility] [address] [id number] [address] [place] [address], [place] [address] October, [facility] [address] [id number] [address] [place] [address], [place] [address] October, [facility] [address] [id number] [address] [place] [address], [place] [address] October, [facility] [address] [id number] [address] [place] [address], [place] [address] Oct, [facility] [address] [id number] [address] [place] [address], [place] [address] Oct, [facility] [address] [id number] [address] [place] [address], [place] [address] Oct, [facility] [address] [id number] [address] [place] [address], [place] [address] Oct, [facility] [address] [id number] [address] [place] [address], [place] [address] Oct, [facility] [address] [id number] [address] [place] [address], [place] [address] Oct, [facility] [address] [id number] [address] [place] [address], [place] [address] Oct, [facility] [address] [id number] [address] [place] [address], [place] [address] Oct, [facility] [address] [id number] [address] [place] [address], [place] [address] Oct, [facility] [address] [id number] [address] [place] [address], [place] [address] Oct, [facility] [address] [id number] [facility] [place] [address] 08 Oct, 2013 [facility] [address] [id number] [facility] [place] [address] 08 Oct, 2013 [facility] [address] [id number] [facility] [place] [address] 15 Aug, 2013 [facility] [address] [id number] [address] [place] [address], [place] [address] 15 Aug, 2013 [facility] [address] [id number] [address] [place] [address], [place] [address] Aug, [facility] [address] [id number] [address] [place] [address], [place] [address] Aug, [facility] [address] [id number] [address] [place] [address], [place] [address] Aug, [facility] [address] [id number] [address] [place] [address], [place] [address] Aug, [facility] [address] [id number] [address] [place] [address], [place] [address] Aug, [facility] [address] [id number] [address] [place] [address], [place] [address] Aug, [facility] [address] [id number] [address] [place] [address], [place] [address] Aug, [facility] [address] [id number] [address] [place] [address], [place] [address] Aug, [facility] [address] [id number] [address] [place] [address], [place] [address] Aug, [facility] [address] [id number] [address] [place] [address], [place] [address] Aug, [facility] [address] [id number] [address] [place] [address], [place] [address] Aug, [facility] [address] [id number] [address] [place] [address], [place] [address] 20 Aug, 2013 [facility] [address] [id number] [address] [place] [address], [place] [address] 14 Aug, 2013 [facility] [address] [id number] [address] [place] [address], [place] [address] 14 Aug, 2013 [facility] [address] [id number] [address] [place] [address], [place] [address] 14 Aug, 2013 [facility] [address] [id number] [address] [place] [address], [place] [address] 14 Aug, 2013 [facility] [address] [id number] [address] [place] [address], [place] [address] 07 Aug, 2013 [facility] [address] [id number] [address] [place] [address], [place] [address] 07 Aug, 2013 [facility] [address] [id number] [address] [place] [address], [place] [address] 06 Aug, 2013 [facility] [address] [id number] [address] [place] [address], [place] [address] 06 Aug, 2013 [facility] [address] [id number] [address] [place] [address], [place] [address] 04 Aug, 2013 [facility] [address] [id number] [address] [place] [address], [place] [address] 04 Aug, 2013 [facility] [address] [id number] [address] [place] [address], [place] [address] Aug, [facility] [address] [id number] [address] [place] [address], [place] [address] Jul, [facility] [address] [id number] [address] [place] [address], [place] [address] Jul, [facility] [address] [id number] [address] [place] [address], [place] [address] Jul, [facility] [address] [id number] [address] [place] [address], [place] [address] Jul, [facility] [address] [id number] [address] [place] [address], [place] [address] Jul, [facility] [address] [id number] [address] [place] [address], [place] [address] Jul, [facility] [address] [id number] [address] [place] [address], [place] [address] Jul, [facility] [address] [id number] [address] [place] [address], [place] [address] Jul, [facility] [address] [id number] [address] [place] [address], [place] [address] Jul, [facility] [address] [id number] [address] [place] [address], [place] [address] Jul, [facility] [address] [id number] [address] [place] [address], [place] [address] Jul, [facility] [address] [id number] [address] [place] [address], [place] [address] Jul, [facility] [address] [id number] [address] [place] [address], [place] [address] Jul, [facility] [address] [id number] [address] [place] [address], [place] [address] Jul, [facility] [address] [id number] [address] [place] [address], [place] [address] Jul, [facility] [address] [id number] [address] [place] [address], [place] [address] Jul, [facility] [address] [id number] [address] [place] [address], [place] [address] Jul, [facility] [address] [id number] [address] [place] [address], [place] [address] Jul, [facility] [address] [id number] [address] [place] [address], [place] [address] Jul, [facility] [address] [id number] [address] [place] [address], [place] [address] Jul, [facility] [address] [id number] [address] [place] [address], [place] [address] Jun, [facility] [address] [id number] [address] [place] [address], [place] [address] Jun, [facility] [address] [id number] [address] [place] [address], [place] [address] Jun, [facility] [address] [id number] [address] [place] [address], [place] [address] Jun, [facility] [address] [id number] [address] [place] [address], [place] [address] Jun, [facility] [address] [id number] [address] [place] [address], [place] [address] Jun, [facility] [address] [id number] [address] [place] [address], [place] [address] Jun, [facility] [address] [id number] [address] [place] [address], [place] [address] Jun, [facility] [address] [id number] [address] [place] [address], [place] [address] Jun, [facility] [address] [id number] [address] [place] [address], [place] [address] Jun, [facility] [address] [id number] [address] [place] [address], [place] [address] Jun, [facility] [address] [id number] [address] [place] [address], [place] [address] Jun, [facility] [address] [id number] [address] [place] [address], [place] [address] Jun, [facility] [address] [id number] [address] [place] [address], [place] [address] Jun, [facility] [address] [id number] [address] [place] [address], [place] [address] Jun, [facility] [address] [id number] [address] [place] [address], [place] [address] 18 Jun, 2013 [facility] [address] [id number] [address] [place] [address], [place] [address] 18 Jun, 2013 [facility] [address] [id number] [address] [place] [address], [place] [address] 17 Jun, 2013 [facility] [address] [id number] [address] [place] [address], [place] [address] 17 Jun, 2013 [facility] [address] [id number] [address] [place] [address], [place] [address] 13 Jun, 2013 [facility] [address] [id number] [address] [place] [address], [place] [address] Jun, [facility] [address] [id number] [address] [place] [address], [place] [address] Jun, [facility] [address] [id number] [address] [place] [address], [place] [address] Jun, [facility] [address] [id number] [address] [place] [address], [place] [address] 05 Jun, 2013 [facility] [address] [id number] [address] [place] [address], [place] [address] 05 Jun, 2013 [facility] [address] [id number] [address] [place] [address], [place] [address] 04 Jun, 2013 [facility] [address] [id number] [address] [place] [address], [place] [address] 04 Jun, 2013 [facility] [address] [id number] [address] [place] [address], [place] [address] 17 May, 2013 [facility] [address] [id number] [address] [place] [address], [place] [address] 17 May, 2013 [facility] [address] [id number] [address] [place] [address], [place] [address] May, [facility] [address] [id number] [address] [place], [place] [address] [address] May, [facility] [address] [id number] [address] [place] [address], [place] [address] May, [facility] [address] [id number] [address] [place] [address], [place] [address] May, [facility] [address] [id number] [address] [place] [address], [place] [address] Apr, [facility] [address] [id number] [address] [place] [address], [place] [address] Apr, [facility] [address] [id number] [address] [place] [address], [place] [address] Apr, [facility] [address] [id number] [address] [place] [address], [place] [address] Apr, [facility] [address] [id number] [address] [place] [address], [place] [address] Apr, [facility] [address] [id number] [address] [place] [address], [place] [address] Apr, [facility] [address] [id number] [address] [place] [address], [place] [address] Apr, [facility] [address] [id number] [address] [place] [address] Apr, [facility] [address] [id number] [address] [place] [address] 26 Mar, 2012 [facility] [address] [id number] [address] [place] [address] 24 Sep, 2012 [facility] [address] [id number] [address] [place] [address], [place] [address] 17 Sep2012 [facility] [address] [id number] [address] [place] [address] 17 Sep, 2012 [facility] [address] [id number] [address] [place] [address], [place] [address] 11 Mar, 2013 [facility] [address] [id number] [facility] [place] [address] 10 Mar, 2013 [facility] [address] [id number] [address] [place] [address], [place] [address] 05 Mar, 2013 [facility] [address] [id number] [address] [place] [address], [place] [address] 04 Mar, 2013 [facility] [address] [id number] [address] [place] [address], [place] [address] 20 Jan, 2013 [facility] [address] [id number] [address] [place] [address], [place] [address] Jan, [facility] [address] [id number] [address] [place] [address], [place] [address] 14 Jan, 2013 [facility] [address] [id number] [address] [place] [address], [place] [address] Jan, [facility] [address] [id number] [address] [place] [address], [place] [address] Jan, [facility] [address] [id number] [address] [place] [address], [place] [address] Jan, [facility] [address] [id number] [address] [place] [address], [place] [address] Dec, [facility] [address] [id number] [address] [place] [address], [place] [address] Dec, [facility] [address] [id number] [address] [place] [address], [place] [address] Dec, [facility] [address] [id number] [address] [place] [address], [place] [address] Dec, [facility] [address] [id number] [address] [place] [address], [place] [address] 18 Dec, 2012 [facility] [address] [id number] [address] [place] [address], [place] [address] 17 Dec, 2012 [facility] [address] [id number] [address] [place] [address], [place] [address] 16 Dec, 2012 [facility] [address] [id number] [address] [place] [address], [place] [address] 16 Dec, 2012 [facility] [address] [id number] [address] [place] [address], [place] [address] 15 Dec, 2012 [facility] [address] [id number] [address] [place] [address], [place] [address] 10 Dec, 2012 [facility] [address] [id number] [address] [place] [address], [place] [address] Dec, [facility] [address] [id number] [address] [place] [address], [place] [address] Dec, [facility] [address] [id number] [address] [place] [address], [place] [address] Dec, [facility] [address] [id number] [address] [place] [address], [place] [address] Dec, [facility] [address] [id number] [address] [place] [address], [place] [address] Dec, [facility] [address] [id number] [address] [place] [address], [place] [address] Dec, [facility] [address] [id number] [address] [place] [address], [place] [address] October, [facility] [address] [id number] [address] [place] [address], [place] [address] October, [facility] [address] [id number] [address] [place] [address], [place] [address] October, [facility] [address] [id number] [address] [place] [address], [place] [address] October, [facility] [address] [id number] [address] [place] [address], [place] [address] October, [facility] [address] [id number] [address] [place] [address], [place] [address] October, [facility] [address] [id number] [address] [place] [address], [place] [address] October, [facility] [address] [id number] [address] [place] [address], [place] [address] Oct, [facility] [address] [id number] [address] [place] [address], [place] [address] Oct, [facility] [address] [id number] [address] [place] [address], [place] [address] Oct, [facility] [address] [id number] [address] [place] [address], [place] [address] Oct, [facility] [address] [id number] [address] [place] [address], [place] [address] Oct, [facility] [address] [id number] [address] [place] [address], [place] [address] Oct, [facility] [address] [id number] [address] [place] [address], [place] [address] Oct, [facility] [address] [id number] [address] [place] [address], [place] [address] 15 Oct, 2012 [facility] [address] [id number] [address] [place] [address], [place] [address] Oct, [facility] [address] [id number] [address] [place] [address], [place] [address] Oct, [facility] [address] [id number] [address] [place] [address], [place] [address] Oct, [facility] [address] [id number] [address] [place] [address], [place] [address] Oct, [facility] [address] [id number] [address] [place] [address], [place] [address] Aug, [facility] [address] [id number] [address] [place] [address], [place] [address] Aug, [facility] [address] [id number] [address] [place] [address], [place] [address] Aug, [facility] [address] [id number] [address] [place] [address], [place] [address] 06 Aug, 2012 [facility] [address] [id number] [address] [place] [address], [place] [address] 05 Aug, 2012 [facility] [address] [id number] [address] [place] [address], [place] [address] 05 Aug, 2012 [facility] [address] [id number] [address] [place] [address], [place] [address] 20 Aug, 2012 [facility] [address] [id number] [address] [place] [address], [place] [address] 14 Aug, 2012 [facility] [address] [id number] [address] [place] [address], [place] [address] 12 Aug, 2012 [facility] [address] [id number] [address] [place] [address], [place] [address] Aug, [facility] [address] [id number] [address] [place] [address], [place] [address] 29 Jul, 2012 [facility] [address] [id number] [address] [place] [address], [place] [address] 15 Jul, 2012 [facility] [address] [id number] [address] [place] [address], [place] [address] 08 Jul, 2012 [facility] [address] [id number] [address] [place] [address], [place] [address] 20 Jun, 2012 [facility] [address] [id number] [address] [place] [address], [place] [address] 18 Jun, 2012 [facility] [address] [id number] [address] [place] [address], [place] [address] 18 Jun, 2012 [facility] [address] [id number] [address] [place] [address], [place] [address] 18 Jun, 2012 [facility] [address] [id number] [address] [place] [address], [place] [address] 18 Jun, 2012 [facility] [address] [id number] [address] [place], [place] [address] [address] 14 Jun, 2012 [facility] [address] [id number] [address] [place] [address], [place] [address] 14 Jun, 2012 [facility] [address] [id number] [address] [place] [address], [place] [address] 13 Jun, 2012 [facility] [address] [id number] [address] [place] [address], [place] [address] 13 Jun, 2012 [facility] [address] [id number] [address] [place] [address], [place] [address] 11 Jun, 2012 [facility] [address] [id number] [address] [place] [address], [place] [address] 11 Jun, 2012 [facility] [address] [id number] [address] [place] [address], [place] [address] 11 Jun, 2012 [facility] [address] [id number] [address] [place] [address], [place] [address] Jun, [facility] [address] [id number] [address] [place] [address], [place] [address] 07 Jun, 2012 [facility] [address] [id number] [address] [place] [address], [place] [address] 07 Jun, 2012 [facility] [address] [id number] [address] [place] [address], [place] [address] 06 Jun, 2012 [facility] [address] [id number] [address] [place] [address], [place] [address] Jun, [facility] [address] [id number] [address] [place] [address], [place] [address] Jun, [facility] [address] [id number] [address] [place] [address], [place] [address] Jun, [facility] [address] [id number] [address] [place] [address], [place] [address] 05 Jun, 2012 [facility] [address] [id number] [address] [place] [address], [place] [address] 05 Jun, 2012 [facility] [address] [id number] [address] [place] [address], [place] [address] Jun, [facility] [address] [id number] [address] [place] [address], [place] [address] Jun, [facility] [address] [id number] [address] [place] [address], [place] [address] May, [facility] [address] [id number] [address] [place] [address], [place] [address] May, [facility] [address] [id number] [address] [place] [address], [place] [address] May, [facility] [address] [id number] [address] [place] [address], [place] [address] May, [facility] [address] [id number] [address] [place] [address], [place] [address] May, [facility] [address] [id number] [address] [place] [address], [place] [address] May, [facility] [address] [id number] [address] [place] [address], [place] [address] May, [facility] [address] [id number] [address] [place] [address], [place] [address] May, [facility] [address] [id number] [address] [place] [address], [place] [address] Apr, [facility] [address] [id number] [address] [place] [address], [place] [address] 30 Apr, 2012 [facility] [address] [id number] [address] [place] [address], [place] [address] 29 Apr, 2012 [facility] [address] [id number] [address] [place] [address], [place] [address] Apr, [facility] [address] [id number] [address] [place] [address], [place] [address] Apr, [facility] [address] [id number] [address] [place] [address] Apr, [facility] [address] [id number] [address] [place] [address], [place] [address] Apr, [facility] [address] [id number] [address] [place] [address], [place] [address] Apr, [facility] [address] [id number] [address] [place] [address], [place] [address] Apr, [facility] [address] [id number] [address] [place] [address], [place] [address] Apr, [facility] [address] [id number] [address] [place] [address], [place] [address] Apr, [facility] [address] [id number] [address] [place] [address], [place] [address] Apr, [facility] [address] [id number] [address] [place] [address], [place] [address] Mar, [facility] [address] [id number] [address] [place] [address], [place] [address] 18 Mar, 2012 [facility] [address] [id number] [address] [place] [address], [place] [address] Mar, [facility] [address] [id number] [address] [place] [address] Mar, [facility] [address] [id number] [address] [place] [id number] Mar, [facility] [address] [id number] [address] [place] [id number] Mar, [facility] [address] [id number] [address] [place] [address] Mar, [facility] [address] [id number] [address] [place] [address] Jan, [facility] [address] [id number] [address] [place] [address] Jan, [facility] [address] [address] [id number] [address] [place] [id number] [id number] Jan, [facility] [address] [id number] [address] [place] [address], [place] [id number] Jan, [facility] [address] [id number] [address] [place] [address], [place] [address] Jan, [facility] [address] [id number] [address] [place] [address], [place] [address] Jan, [facility] [address] [id number] [address] [place] [address], [place] [address] Jan, [facility] [address] [id number] [address] [place] [address], [place] [address] Jan, [facility] [address] [id number] [address] [place] [address], [place] [address] Jan, [facility] [address] [id number] [address] [place] [address], [place] [address] Jan, [facility] [address] [id number] [address] [place] [address], [place] [address] Jan, [facility] [address] [id number] [address] [place] [address], [place] [address] Dec, [facility] [address] [id number] [address] [place] [address], [place] [address] Dec, [facility] [address] [id number] [address] [place] [address], [place] [address] Dec, [facility] [address] [id number] [address] [place] [address], [place] [address] Dec, [facility] [address] [id number] [address] [place] [address], [place] [address] Dec, [facility] [address] [id number] [address] [place] [address], [place] [address] Dec, [facility] [address] [id number] [address] [place] [address], [place] [address] Dec, [facility] [address] [id number] [facility] [place] [address] 17 Jan, 2012 [facility] [address] [id number] [address] [place] [address], [place] [address] 16 Jan, 2012 [facility] [address] [id number] [address] [place] [address], [place] [address] 13 Jan, 2012 [facility] [address] [id number] [address] [place] [address], [place] [address] 13 Jan, 2012 [facility] [address] [id number] [address] [place] [address], [place] [address] Dec, [facility] [address] [id number] [address] [place] [address], [place] [address] Dec, [facility] [address] [id number] [address] [place] [address], [place] [address] Dec, [facility] [address] [id number] [address] [place] [address], [place] [address] Dec, [facility] [address] [id number] [address] [place] [address], [place] [address] Dec, [facility] [address] [id number] [address] [place] [address], [place] [address] 15 Dec, 2011 [facility] [address] [id number] [address] [place] [address], [place] [address] 06 Dec, 2011 [facility] [address] [id number] [address] [place] [address], [place] [address] 05 Dec, 2011 [facility] [address] [id number] [address] [place] [address], [place] [address] October, [facility] [address] [id number] [address] [place] [address], [place] [address] October, [facility] [address] [id number] [address] [place] [address], [place] [address] October, [facility] [address] [id number] [address] [place] [address], [place] [address] October, [facility] [address] [id number] [address] [place] [address], [place] [address] October, [facility] [address] [id number] [address] [place] [address], [place] [address] October, [facility] [address] [id number] [address] [place] [address], [place] [address] Oct, [facility] [address] [id number] [address] [place] [address], [place] [address] Oct, [facility] [address] [id number] [address] [place] [address], [place] [address] Oct, [facility] [address] [id number] [address] [place] [address], [place] [address] Oct, [facility] [address] [id number] [address] [place] [address], [place] [address] Oct, [facility] [address] [id number] [address] [place] [address], [place] [address] Oct, [facility] [address] [id number] [address] [place] [address], [place] [address] Oct, [facility] [address] [id number] [address] [place] [address], [place] [address] Aug, [facility] [address] [id number] [address] [place] [address], [place] [address] Aug, [facility] [address] [id number] [address] [place] [address], [place] [address] Aug, [facility] [address] [id number] [address] [place] [address], [place] [address] Aug, [facility] [address] [id number] [address] [place] [address], [place] [address] Aug, [facility] [address] [id number] [address] [place] [address], [place] [address] Aug, [facility] [address] [id number] [address] [place] [address], [place] [address] Aug, [facility] [address] [id number] [address] [place] [address], [place] [address] Aug, [facility] [address] [id number] [address] [place] [address], [place] [address] 08 Aug, 2011 [facility] [address] [id number] [address] [place] [address], [place] [address] Jul, [facility] [address] [id number] [address] [place] [address], [place] [address] Jul, [facility] [address] [id number] [address] [place] [address], [place] [address] Jul, [facility] [address] [id number] [address] [place] [address], [place] [address] Jul, [facility] [address] [id number] [address] [place] [address], [place] [address] Jun, [facility] [address] [id number] [address] [place] [address], [place] [address] Jun, [facility] [address] [id number] [address] [place] [address], [place] [address] May, [facility] [address] [id number] [address] [place] [address], [place] [address] May, [facility] [address] [id number] [address] [place] [address], [place] [address] May, [facility] [address] [id number] [address] [place] [address], [place] [address] May, [facility] [address] [id number] [address] [place] [address], [place] [address] May, [facility] [address] [id number] [address] [place] [address], [place] [address] 28 Apr, 2011 [facility] [address] [id number] [address] [place] [address], [place] [address] Apr, [facility] [address] [id number] [address] [place] [address] Apr, [facility] [address] [id number] [address] [place] [address] Jan, [facility] [address] [id number] [address] [place] [address] Dec, [facility] [address] [id number] [address] [place] [address] October, [facility] [address] [id number] [address] [place] [address] Jun, [facility] [address] [id number] [address] [place] [address] Apr, [facility] [address] [id number] [address] [place] [address] Apr, [facility] [address] [id number] [address] [place] [address] Apr, [facility] [address] [id number] [address] [place] [address] Jun, IMMUNIZATIONS No Known Immunizations SOCIAL HISTORY Never Assessed REASON FOR VISIT PLAN OF CARE VITAL SIGNS Height 69 in 2012-12-17 Weight 135 lbs 2012-12-17 Temperature 98.8 degrees Fahrenheit 2012-12-17 Heart Rate 88 bpm 2012-12-17 Blood pressure systolic 112 mmHg 2012-12-17 Blood pressure diastolic 72 mmHg 2012-12-17 MEDICATIONS Unknown Medications RESULTS No Results PROCEDURES [...]
--- OUTSIDE RECORDS SUMMARY | 2020-01-25 13:24 | XMS REPORT ---
Author Author Moreno Ana Doctor Organization [facility] Address Unknown Phone Unavailable Care Team Providers Care Through Operator Name Role Phone Migration, Doctor Unavailable Unavailable PROBLEMS Type Condition ICD9-CM Code [id number] Code Onset Dates Condition S tatus SNOMED Code Problem Chronic hepatitis C without hepatic coma B18.2 Active 757571045 Problem Cannabis abuse F12.10 Active 54804 009 Problem Bipolar 1 disorder F31.9 Active 3 76151731 Problem Attention deficit hyperactivity disorder (ADHD), combi luciano type F90.2 Active 34951266 Problem Attention deficit R41.840 Active 76 344831 Problem Hot flashes due to menopause N95.1 A ctive 226020703 Problem H/O laminectomy Z98.89 Active 1616 73201 Problem Other chronic pain G89.29 Active 8 7999349 Problem Anxiety disorder, unspecified type F41.9 Active 808406793 Problem Bipolar disorder, in partial remission, most rec ent episode hypomanic F31.71 Active 920340031 ALLERGIES No Information ENCOUNTERS Encounter Location Date Diagnosis [facility] [address] [id number] [address] [place] [address] [id number] Oct, [facility] [address] [facility] [id number] [address] [place] [id number] Oct, [facility] [address] [facility] [id number] [address] [place] [address] Aug, [facility] [address] [facility] [id number] [address] [place] [phone] Jul, [facility] [address] [facility] [id number] [address] [place] [phone] Jul, [facility] [address] [facility] [id number] [address] [place] [address] Apr, [facility] [address] [facility] [id number] [address] [place] [address] Mar, Hot flashes due to menopause N95.1 ; Anxiety disorder, unspecified type F41.9 ; Low back pain M54.5 and Encounter for immunization Z23 [facility] [address] [facility] [id number] [address] [place] [address] Dec, Other chronic pain G89.29 an d Low back pain M54.5 [facility] [address] [facility] [id number] [address] [place] [phone] October, [facility] [address] [facility] [id number] [address] [place] [phone] October, [facility] [address] [facility] [id number] [address] [place] [phone] October, [facility] [address] [facility] [id number] [address] [place] [address] October, Other chronic pain G89.29 an d Chronic hepatitis C without hepatic coma B18.2 [facility] [address] [facility] [id number] [address] [place] [address] Aug, Bipolar disorder, in partial remission, most recent episode hypomanic F31.71 ; Attention deficit hyperactivity disorder (ADHD), combined type F90.2 and Anxiety disorder, unspecified type F41.9 [facility] [address] [facility] [id number] [address] [place] [address] Aug, [facility] [address] [facility] [id number] [address] [place] [address] Aug, Bipolar disorder, in partial remission, most recent episode hypomanic F31.71 [facility] [address] [facility] [id number] [address] [place] [id number] Aug, [facility] [address] [facility] [id number] [address] [place] [id number] Aug, Bipolar disorder, in partial remission, most recent episode hypomanic F31.71 [facility] [address] [facility] [id number] [address] [place] [address] Aug, Bipolar disorder, in partial remission, most recent episode hypomanic F31.71 ; Attention deficit hyperactivity disorder (ADHD), combined type F90.2 and Anxiety disorder, unspecified type F41.9 [facility] [address] [id number] [address] [place] [address] Aug, Low back pain M54.5 and Pain in left wrist M25.532 [facility] [address] [id number] [address] [place] [address] Aug, [facility] [address] [id number] [address] [place] [id number] Jun, [facility] [address] [id number] [address] [place] [address] Apr, Bipolar disorder, in partial remission, most recent episode hypomanic F31.71 [facility] [address] [id number] [address] [place] [address] Apr, [facility] [address] [id number] [address] [place] [address] Apr, Bipolar disorder, in partial remission, most recent episode hypomanic F31.71 ; Attention deficit hyperactivity disorder (ADHD), combined type F90.2 ; Anxiety disorder, unspecified type F41.9 and Other oysterman (current) drug therapy Z79.899 [facility] [address] [id number] [address] [place] [address] Apr, Bipolar disorder, in partial remission, most recent episode hypomanic F31.71 [facility] [address] [id number] [address] [place] [address] Apr, Bipolar disorder, in partial remission, most recent episode hypomanic F31.71 [facility] [address] [id number] [address] [place] [address] Mar, [facility] [address] [id number] [address] [place] [address] Mar, Bipolar disorder, in partial remission, most recent episode hypomanic F31.71 ; Encounter for immunization Z23 and Low back pain M54.5 [facility] [address] [id number] [address] [place] [address] Mar, Bipolar disorder, in partial remission, most recent episode hypomanic F31.71 [facility] [address] [id number] [address] [place] [address] Mar, Bipolar disorder, in partial remission, most recent episode hypomanic F31.71 [facility] [address] [id number] [address] [place] [address] Jan, Bipolar disorder, in partial remission, most recent episode hypomanic F31.71 [facility] [address] [id number] [address] [place] [id number] Jan, Bipolar disorder, in partial remission, most recent episode hypomanic F31.71 [facility] [address] [facility] [id number] [address] [place] [address] Dec, Bipolar disorder, in partial remission, most recent episode hypomanic F31.71 [facility] [address] [id number] [address] [place] [address] Dec, Bipolar disorder, in partial remission, most recent episode hypomanic F31.71 ; Attention deficit hyperactivity disorder (ADHD), combined type F90.2 ; Anxiety disorder, unspecified type F41.9 and Other usp (current) drug therapy Z79.899 [facility] [address] [id number] [address] [place] [address] Dec, Bipolar disorder, in partial remission, most recent episode hypomanic F31.71 [facility] [address] [id number] [address] [place] [address] Dec, Bipolar disorder, in partial remission, most recent episode hypomanic F31.71 [facility] [address] [id number] [address] [place] [address] October, Bipolar disorder, in partial remission, most recent episode hypomanic F31.71 [facility] [address] [id number] [address] [place] [phone] October, [facility] [address] [id number] [address] [place] [address] October, [facility] [address] [id number] [address] [place] [id number] Oct, Bipolar disorder, in partial remission, most recent episode hypomanic F31.71 ; Attention deficit hyperactivity disorder (ADHD), combined type F90.2 ; Anxiety disorder, unspecified type F41.9 and Encounter for drug screening Z02.83 [facility] [address] [id number] [address] [place] [id number] Oct, Bipolar disorder, in partial remission, most recent episode hypomanic F31.71 [facility] [address] [facility] [id number] [address] [place] [address] Oct, Bipolar disorder, in partial remission, most recent episode hypomanic F31.71 [facility] [address] [facility] [id number] [address] [place] [address] Aug, Bipolar disorder, in partial remission, most recent episode hypomanic F31.71 [facility] [address] [facility] [id number] [address] [place] [address] Aug, Bipolar disorder, in partial remission, most recent episode hypomanic F31.71 [facility] [address] [facility] [id number] [address] [place] [phone] Aug, Bipolar disorder, in partial remission, most recent episode hypomanic F31.71 [facility] [address] [id number] [address] [place] [phone] Jul, Bipolar disorder, in partial remission, most recent episode hypomanic F31.71 ; Attention deficit hyperactivity disorder (ADHD), combined type F90.2 and Anxiety disorder, unspecified type F41.9 [facility] [address] [id number] [address] [place] [address] Jul, Bipolar disorder, in partial remission, most recent episode hypomanic F31.71 [facility] [address] [id number] [address] [place] [phone] Jun, Bipolar disorder, in partial remission, most recent episode hypomanic F31.71 [facility] [address] [id number] [address] [place] [id number] May, Bipolar disorder, in partial remission, most recent episode hypomanic F31.71 [facility] [address] [id number] [address] [place] [phone] May, Bipolar disorder, in partial remission, most recent episode hypomanic F31.71 [facility] [address] [id number] [address] [place] [phone] Apr, [facility] [address] [facility] [id number] [address] [place] [address] Apr, Bipolar disorder, in partial remission, most recent episode hypomanic F31.71 ; Attention deficit hyperactivity disorder (ADHD), combined type F90.2 ; Anxiety disorder, unspecified type F41.9 and Cannabis abuse F12.10 [facility] [address] [id number] [address] [place] [phone] Apr, Attention deficit hyperactiv ity disorder (ADHD), combined type F90.2 [facility] [address] [facility] [id number] [address] [place] [phone] Mar, Attention deficit hyperactiv ity disorder (ADHD), combined type F90.2 [facility] [address] [facility] [id number] [address] [place] [id number] 14 Mar, 2017 Anxiety disorder, unspecifie d type F41.9 [facility] [address] [facility] [id number] [address] [place] [phone] 18 Jan, 2017 Attention deficit hyperactiv ity disorder (ADHD), combined type F90.2 [facility] [address] [facility] [id number] [address] [place] [phone] 16 Jan, 2017 Anxiety disorder, unspecifie d type F41.9 [place] [id number] [facility] [id number] [address] [place] [address] Jan, Other chronic pain G89.29 ; Chronic hepatitis C without hepatic coma B18.2 and Bipolar 1 disorder F31.9 [facility] [address] [facility] [id number] [address] [place] [address] Dec, Attention deficit hyperactiv ity disorder (ADHD), combined type F90.2 [facility] [address] [facility] [id number] [address] [place] [address] Dec, Bipolar disorder, in partial remission, most recent episode hypomanic F31.71 ; Attention deficit hyperactivity disorder (ADHD), combined type F90.2 and Anxiety disorder, unspecified type F41.9 [place] [address] [facility] [id number] [address] [place] [address] Dec, Bipolar disorder, in partial remission, most recent episode hypomanic F31.71 ; Attention deficit hyperactivity disorder (ADHD), combined type F90.2 and Anxiety disorder, unspecified type F41.9 [facility] [address] [place] [id number] [address] [place] [address] Dec, Bipolar 1 disorder F31.9 and Attention deficit R41.840 [place] [address] [place] [id number] [address] [place] [address] Oct, Other chronic pain G89.29 ; Alopecia L65.9 and Screening, lipid Z13.220 [place] [address] [facility] [id number] [address] [place] [address] Oct, [place] [address] [place] [id number] [address] [place] [address] Aug, [place] [address] [place] [id number] [address] [place] [address] Aug, Eustachian tube dysfunction, right H69.81 ; Vertigo R42 and Other chronic pain G89.29 [place] [address] [place] [id number] [address] [place] [phone] Aug, [facility] [address] [id number] [address] [place] [id number] Jun, [facility] [address] [id number] [address] [place] [address] Jun, Low back pain M54.5 and Othe r chronic pain G89.29 [facility] [address] [id number] [address] [place] [id number] Jun, [facility] [address] [id number] [address] [place] [address] May, [facility] [address] [id number] [address] [place] [address] Jan, [facility] [address] [id number] [address] [place] [phone] Dec, [facility] [address] [id number] [address] [place] [phone] Dec, [facility] [address] [id number] [address] [place] [phone] Jun, [facility] [address] [id number] [address] [place] [address] Apr, Eustachian tube dysfunction, unspecified laterality H69.80 ; Hot flashes N95.1 and Encounter for immunization Z23 [facility] [address] [id number] [address] [place] [id number] Jan, [facility] [address] [id number] [address] [place] [id number] Jan, [facility] [address] [id number] [address] [place] [address] Jan, [facility] [address] [facility] [id number] [address] [place] [address] Jan, [facility] [address] [id number] [address] [place] [address] Jan, Encounter to establish care V65.8 ; Bipolar 1 disorder 296.7 ; Abdominal pain 789.00 ; Constipation 564.00 ; Hard of hearing 389.9 and Drug abuse 305.90 [facility] [address] [id number] [address] [place] [address] Dec, [facility] [address] [facility] [id number] [address] [place] [address] October, [facility] [address] [id number] [address] [place] [id number] October, [facility] [address] [id number] [address] [place] [id number] Oct, [facility] [address] [id number] [address] [place] [phone] Oct, [facility] [address] [facility] [id number] [address] [place] [id number] Oct, [facility] [address] [id number] [address] [place] [id number] Aug, [facility] [address] [id number] [address] [place] [id number] Aug, [facility] [address] [facility] [id number] [address] [place] [address] Aug, [facility] [address] [id number] [address] [place] [address] Aug, [facility] [address] [id number] [address] [place] [address] Aug, [facility] [address] [id number] [address] [place] [id number] Aug, [facility] [address] [id number] [address] [place] [id number] Aug, [facility] [address] [id number] [address] [place] [address] Aug, [facility] [address] [id number] [address] [place] [address], [place] [address] Aug, 2014 [facility] [address] [id number] [address] [place] [address], [place] [address] Aug, 2014 [facility] [address] [id number] [address] [place] [address], [place] [address] Aug, 2014 [facility] [address] [id number] [address] [place] [address], [place] [address] Aug, 2014 [facility] [address] [id number] [address] [place] [address], [place] [address] Aug, 2014 [facility] [address] [id number] [address] [place] [address], [place] [address] Aug, 2014 [facility] [address] [id number] [address] [place] [address], [place] [address] Aug, [facility] [address] [id number] [address] [place] [address], [place] [address] Jul, [facility] [address] [id number] [address] [place] [address], [place] [address] Jul, [facility] [address] [id number] [address] [place] [address], [place] [address] Jul, [facility] [address] [id number] [address] [place] [address], [place] [address] Jul, [facility] [address] [id number] [address] [place] [address], [place] [address] Jul, [facility] [address] [id number] [address] [place] [address], [place] [address] Jul, [facility] [address] [id number] [address] [place] [address], [place] [address] Jul, [facility] [address] [id number] [address] [place] [address], [place] [address] Jul, [facility] [address] [id number] [address] [place] [address], [place] [address] Jun, [facility] [address] [id number] [address] [place] [address], [place] [address] Jun, [facility] [address] [id number] [address] [place] [address], [place] [address] Jun, [facility] [address] [id number] [address] [place] [address], [place] [address] Jun, [facility] [address] [id number] [address] [place] [address], [place] [address] Jun, [facility] [address] [id number] [address] [place] [address], [place] [address] Jun, [facility] [address] [id number] [address] [place] [address], [place] [address] Jun, [facility] [address] [id number] [address] [place] [address], [place] [id number] Jun, [facility] [address] [id number] [address] [place] [address], [place] [address] Jun, [facility] [address] [id number] [address] [place] [address], [place] [address] Jun, [facility] [address] [id number] [address] [place] [address], [place] [address] Jun, [facility] [address] [id number] [address] [place] [address], [place] [address] May, [facility] [address] [id number] [address] [place] [address], [place] [address] May, [facility] [address] [id number] [address] [place] [address], [place] [address] May, [facility] [address] [id number] [address] [place] [address], [place] [address] May, [facility] [address] [id number] [address] [place] [address], [place] [address] May, [facility] [address] [id number] [address] [place] [address], [place] [address] May, [facility] [address] [id number] [address] [place] [address], [place] [address] May, [facility] [address] [id number] [address] [place] [address], [place] [address] Apr, [facility] [address] [id number] [address] [place] [address], [place] [address] Apr, [facility] [address] [id number] [address] [place] [address], [place] [address] Apr, [facility] [address] [id number] [address] [place] [address], [place] [address] Apr, [facility] [address] [id number] [address] [place] [address], [place] [address] Apr, [facility] [address] [id number] [address] [place] [address], [place] [address] Apr, [facility] [address] [id number] [address] [place] [address], [place] [address] Mar, [facility] [address] [id number] [address] [place] [address], [place] [address] Mar, [facility] [address] [address] [id number] [address] [place] [address], [place] [address] Mar, [facility] [address] [id number] [address] [place] [address], [place] [address] Mar, [facility] [address] [id number] [address] [place] [address], [place] [address] Mar, [facility] [address] [id number] [address] [place] [address], [place] [address] Mar, [facility] [address] [id number] [address] [place] [address], [place] [address] Jan, [facility] [address] [id number] [address] [place] [address], [place] [address] Jan, [facility] [address] [id number] [address] [place] [address], [place] [address] Jan, [facility] [address] [id number] [address] [place] [address], [place] [address] Jan, [facility] [address] [id number] [address] [place] [address], [place] [address] Dec, [facility] [address] [id number] [address] [place] [address], [place] [address] Dec, [facility] [address] [id number] [address] [place] [address], [place] [address] Dec, [facility] [address] [id number] [address] [place] [address], [place] [address] Dec, [facility] [address] [id number] [address] [place] [address], [place] [address] Dec, [facility] [address] [id number] [address] [place] [address], [place] [address] Dec, [facility] [address] [id number] [address] [place] [address], [place] [address] Dec, [facility] [address] [id number] [address] [place] [address], [place] [address] Dec, [facility] [address] [id number] [address] [place] [address], [place] [address] Dec, [facility] [address] [id number] [address] [place] [address], [place] [address] Dec, [facility] [address] [id number] [address] [place] [address], [place] [address] Dec, [facility] [address] [id number] [address] [place] [address], [place] [address] Dec, [facility] [address] [id number] [address] [place] [address], [place] [address] October, [facility] [address] [id number] [address] [place] [address], [place] [address] October, [facility] [address] [id number] [address] [place] [address], [place] [address] October, [facility] [address] [id number] [address] [place] [address], [place] [address] October, [facility] [address] [id number] [address] [place] [address], [place] [address] October, [facility] [address] [id number] [address] [place] [address], [place] [address] October, [facility] [address] [id number] [address] [place] [address], [place] [address] Oct, [facility] [address] [id number] [address] [place] [address], [place] [address] Oct, [facility] [address] [id number] [address] [place] [address], [place] [address] Oct, [facility] [address] [id number] [address] [place] [address], [place] [address] Oct, [facility] [address] [id number] [address] [place] [address], [place] [address] Oct, [facility] [address] [id number] [address] [place] [address], [place] [address] Oct, [facility] [address] [id number] [address] [place] [address], [place] [address] Oct, [facility] [address] [id number] [address] [place] [address], [place] [address] Oct, [facility] [address] [id number] [address] [place] [address], [place] [address] Oct, [facility] [address] [id number] [address] [place] [address], [place] [address] Oct, [facility] [address] [id number] [address] [place] [address], [place] [address] Oct, [facility] [address] [id number] [facility] [place] [address] 08 Oct, 2013 [facility] [address] [id number] [facility] [place] [address] 15 Aug, 2013 [facility] [address] [id number] [facility] [place] [address] 15 Aug, 2013 [facility] [address] [id number] [address] [place] [address], [place] [address] Aug, [facility] [address] [id number] [address] [place] [address], [place] [address] Aug, [facility] [address] [id number] [address] [place] [address], [place] [address] Aug, [facility] [address] [id number] [address] [place] [address], [place] [address] Aug, [facility] [address] [id number] [address] [place] [address], [place] [address] Aug, [facility] [address] [id number] [address] [place] [address], [place] [address] Aug, [facility] [address] [id number] [address] [place] [address], [place] [address] Aug, [facility] [address] [id number] [address] [place] [address], [place] [address] Aug, [facility] [address] [id number] [address] [place] [address], [place] [address] Aug, [facility] [address] [id number] [address] [place] [address], [place] [address] Aug, [facility] [address] [id number] [address] [place] [address], [place] [address] Aug, [facility] [address] [id number] [address] [place] [address], [place] [address] Aug, [facility] [address] [id number] [address] [place] [address], [place] [address] 14 Aug, 2013 [facility] [address] [id number] [address] [place] [address], [place] [address] 14 Aug, 2013 [facility] [address] [id number] [address] [place] [address], [place] [address] 14 Aug, 2013 [facility] [address] [id number] [address] [place] [address], [place] [address] 14 Aug, 2013 [facility] [address] [id number] [address] [place] [address], [place] [address] 07 Aug, 2013 [facility] [address] [id number] [address] [place] [address], [place] [address] 07 Aug, 2013 [facility] [address] [id number] [address] [place] [address], [place] [address] 06 Aug, 2013 [facility] [address] [id number] [address] [place] [address], [place] [address] 06 Aug, 2013 [facility] [address] [id number] [address] [place] [address], [place] [address] 04 Aug, 2013 [facility] [address] [id number] [address] [place] [address], [place] [address] 04 Aug, 2013 [facility] [address] [id number] [address] [place] [address], [place] [address] Aug, [facility] [address] [id number] [address] [place] [address], [place] [address] Jul, [facility] [address] [id number] [address] [place] [address], [place] [address] Jul, [facility] [address] [id number] [address] [place] [address], [place] [address] Jul, [facility] [address] [id number] [address] [place] [address], [place] [address] Jul, [facility] [address] [id number] [address] [place] [address], [place] [address] Jul, [facility] [address] [id number] [address] [place] [address], [place] [address] Jul, [facility] [address] [id number] [address] [place] [address], [place] [address] Jul, [facility] [address] [id number] [address] [place] [address], [place] [address] Jul, [facility] [address] [id number] [address] [place] [address], [place] [address] Jul, [facility] [address] [id number] [address] [place] [address], [place] [address] Jul, [facility] [address] [id number] [address] [place] [address], [place] [address] Jul, [facility] [address] [id number] [address] [place] [address], [place] [address] Jul, [facility] [address] [id number] [address] [place] [address], [place] [address] Jul, [facility] [address] [id number] [address] [place] [address], [place] [address] Jul, [facility] [address] [id number] [address] [place] [address], [place] [address] Jul, [facility] [address] [id number] [address] [place] [address], [place] [address] Jul, [facility] [address] [id number] [address] [place] [address], [place] [address] Jul, [facility] [address] [id number] [address] [place] [address], [place] [address] Jul, [facility] [address] [id number] [address] [place] [address], [place] [address] Jul, [facility] [address] [id number] [address] [place] [address], [place] [address] Jul, [facility] [address] [id number] [address] [place] [address], [place] [address] 31 Jun, 2013 [facility] [address] [id number] [address] [place] [address], [place] [address] 31 Jun, 2013 [facility] [address] [id number] [address] [place] [address], [place] [address] Jun, [facility] [address] [id number] [address] [place] [address], [place] [address] Jun, [facility] [address] [id number] [address] [place] [address], [place] [address] Jun, [facility] [address] [id number] [address] [place] [address], [place] [address] Jun, [facility] [address] [id number] [address] [place] [address], [place] [address] Jun, [facility] [address] [id number] [address] [place] [address], [place] [address] Jun, [facility] [address] [id number] [address] [place] [address], [place] [address] Jun, [facility] [address] [id number] [address] [place] [address], [place] [address] Jun, [facility] [address] [id number] [address] [place] [address], [place] [address] Jun, [facility] [address] [id number] [address] [place] [address], [place] [address] Jun, [facility] [address] [id number] [address] [place] [address], [place] [address] Jun, [facility] [address] [id number] [address] [place] [address], [place] [address] Jun, [facility] [address] [id number] [address] [place] [address], [place] [address] Jun, [facility] [address] [id number] [address] [place] [address], [place] [address] 18 Jun, 2013 [facility] [address] [id number] [address] [place] [address], [place] [address] 18 Jun, 2013 [facility] [address] [id number] [address] [place] [address], [place] [address] 17 Jun, 2013 [facility] [address] [id number] [address] [place] [address], [place] [address] 17 Jun, 2013 [facility] [address] [id number] [address] [place] [address], [place] [address] 13 Jun, 2013 [facility] [address] [id number] [address] [place] [address], [place] [address] 12 Jun, 2013 [facility] [address] [id number] [address] [place] [address], [place] [address] 12 Jun, 2013 [facility] [address] [id number] [address] [place] [address], [place] [address] 09 Jun, 2013 [facility] [address] [id number] [address] [place] [address], [place] [address] 05 Jun, 2013 [facility] [address] [id number] [address] [place] [address], [place] [address] 05 Jun, 2013 [facility] [address] [id number] [address] [place] [address], [place] [address] 04 Jun, 2013 [facility] [address] [id number] [address] [place] [address], [place] [address] 04 Jun, 2013 [facility] [address] [id number] [address] [place] [address], [place] [address] May, [facility] [address] [id number] [address] [place] [address], [place] [address] 17 May, 2013 [facility] [address] [id number] [address] [place] [address], [place] [address] May, [facility] [address] [id number] [address] [place] [address], [place] [address] May, [facility] [address] [id number] [address] [place] [address] [address] May, [facility] [address] [id number] [address] [place] [address], [place] [address] May, [facility] [address] [id number] [address] [place] [address], [place] [address] Apr, [facility] [address] [id number] [address] [place] [address], [place] [address] Apr, [facility] [address] [id number] [address] [place] [address], [place] [address] Apr, [facility] [address] [id number] [address] [place] [address], [place] [address] Apr, [facility] [address] [id number] [address] [place] [address], [place] [address] Apr, [facility] [address] [id number] [address] [place] [address], [place] [address] Apr, [facility] [address] [id number] [address] [place] [address], [place] [address] 15 Apr, 2013 [facility] [address] [id number] [address] [place] [address], [place] [address] Apr, [facility] [address] [id number] [address] [place] [address] 26 Mar, 2013 [facility] [address] [id number] [address] [place] [address] 24 Sep, 2012 [facility] [address] [id number] [address] [place] [address] 17 Sep, 2012 [facility] [address] [id number] [address] [place] [address], [place] [address] 17 Sep, 2012 [facility] [address] [id number] [address] [place] [address] 11 Sep, 2012 [facility] [address] [id number] [address] [place] [address], [place] [address] 10 Mar, 2012 [facility] [address] [id number] [address] [place] [address], [place] [address] 05 Mar, 2013 [facility] [address] [id number] [address] [place] [address], [place] [address] 04 Mar, 2013 [facility] [address] [id number] [address] [place] [address], [place] [address] Jan, [facility] [address] [id number] [address] [place] [address], [place] [address] Jan, [facility] [address] [id number] [address] [place] [address], [place] [address] Jan, [facility] [address] [id number] [address] [place] [address], [place] [address] Jan, [facility] [address] [id number] [address] [place] [address], [place] [address] Jan, [facility] [address] [id number] [address] [place] [address], [place] [address] Jan, [facility] [address] [id number] [address] [place] [address], [place] [address] Dec, [facility] [address] [id number] [address] [place] [address], [place] [address] 24 Dec, 2012 [facility] [address] [id number] [address] [place] [address], [place] [address] Dec, [facility] [address] [id number] [address] [place] [address], [place] [address] Dec, [facility] [address] [id number] [address] [place] [address], [place] [address] 18 Dec, 2012 [facility] [address] [id number] [address] [place] [address], [place] [address] 17 Dec, 2012 [facility] [address] [id number] [address] [place] [address], [place] [address] 16 Dec, 2012 [facility] [address] [id number] [address] [place] [address], [place] [address] 16 Dec, 2012 [facility] [address] [id number] [address] [place] [address], [place] [address] 15 Dec, 2012 [facility] [address] [id number] [address] [place] [address], [place] [address] Dec, [facility] [address] [id number] [address] [place] [address], [place] [address] Dec, [facility] [address] [id number] [address] [place] [address], [place] [address] Dec, [facility] [address] [id number] [address] [place] [address], [place] [address] Dec, [facility] [address] [id number] [address] [place] [address], [place] [address] Dec, [facility] [address] [id number] [address] [place] [address], [place] [address] Dec, [facility] [address] [id number] [address] [place] [address], [place] [address] Dec, [facility] [address] [id number] [address] [place] [address], [place] [address] October, [facility] [address] [id number] [address] [place] [address], [place] [address] October, [facility] [address] [id number] [address] [place] [address], [place] [address] October, [facility] [address] [id number] [address] [place] [address], [place] [address] October, [facility] [address] [id number] [address] [place] [address], [place] [address] October, [facility] [address] [id number] [address] [place] [address], [place] [address] October, [facility] [address] [id number] [address] [place] [address], [place] [address] October, [facility] [address] [id number] [address] [place] [address], [place] [id number] 29 Oct, 2012 [facility] [address] [id number] [address] [place] [address], [place] [address] Oct, [facility] [address] [id number] [address] [place] [address], [place] [address] 24 Oct, 2012 [facility] [address] [id number] [address] [place] [address], [place] [address] Oct, [facility] [address] [id number] [address] [place] [address], [place] [address] Oct, [facility] [address] [id number] [address] [place] [address], [place] [address] 18 Oct, 2012 [facility] [address] [id number] [address] [place] [address], [place] [id number] 17 Oct, 2012 [facility] [address] [id number] [address] [place] [address], [place] [id number] 15 Oct, 2012 [facility] [address] [id number] [address] [place] [address], [place] [address] Oct, [facility] [address] [id number] [address] [place] [address], [place] [address] Oct, [facility] [address] [id number] [address] [place] [address], [place] [address] Oct, [facility] [address] [id number] [address] [place] [address], [place] [address] Oct, [facility] [address] [id number] [address] [place] [address], [place] [address] Aug, [facility] [address] [id number] [address] [place] [address], [place] [address] Aug, [facility] [address] [id number] [address] [place] [address], [place] [address] Aug, [facility] [address] [id number] [address] [place] [address], [place] [address] Aug, [facility] [address] [id number] [address] [place] [address], [place] [id number] 05 Aug, 2012 [facility] [address] [id number] [address] [place] [address], [place] [id number] 05 Aug, 2012 [facility] [address] [id number] [address] [place] [address], [place] [id number] 20 Aug, 2012 [facility] [address] [id number] [address] [place] [address], [place] [address] 14 Aug, 2012 [facility] [address] [id number] [address] [place] [address], [place] [id number] 12 Aug, 2012 [facility] [address] [id number] [address] [place] [address], [place] [address] 11 Aug, 2012 [facility] [address] [id number] [address] [place] [address], [place] [id number] 29 Jul, 2012 [facility] [address] [id number] [address] [place] [address], [place] [id number] 15 Jul, 2012 [facility] [address] [id number] [address] [place] [address], [place] [id number] 08 Jul, 2012 [facility] [address] [id number] [address] [place] [address], [place] [address] 20 Jun, 2012 [facility] [address] [id number] [address] [place] [address], [place] [id number] 18 Jun, 2012 [facility] [address] [id number] [address] [place] [address], [place] [address] 18 Jun, 2012 [facility] [address] [id number] [address] [place] [address], [place] [id number] 18 Jun, 2012 [facility] [address] [id number] [address] [place] [address], [place] [id number] 18 Jun, 2012 [facility] [address] [id number] [address] [place] [address], [place] [id number] 14 Jun, 2012 [facility] [address] [id number] [address] [place] [address] [address] 14 Jun, 2012 [facility] [address] [id number] [address] [place] [address], [place] [id number] 13 Jun, 2012 [facility] [address] [id number] [address] [place] [address], [place] [id number] 13 Jun, 2012 [facility] [address] [id number] [address] [place] [address], [place] [id number] 11 Jun, 2012 [facility] [address] [id number] [address] [place] [address], [place] [address] 11 Jun, 2012 [facility] [address] [id number] [address] [place] [address], [place] [address] Jun, [facility] [address] [id number] [address] [place] [address], [place] [address] Jun, [facility] [address] [id number] [address] [place] [address], [place] [address] 07 Jun, 2012 [facility] [address] [id number] [address] [place] [address], [place] [address] 07 Jun, 2012 [facility] [address] [id number] [address] [place] [address], [place] [address] Jun, [facility] [address] [id number] [address] [place] [address], [place] [address] 06 Jun, 2012 [facility] [address] [id number] [address] [place] [address], [place] [address] Jun, [facility] [address] [id number] [address] [place] [address], [place] [address] Jun, [facility] [address] [id number] [address] [place] [address], [place] [address] Jun, [facility] [address] [id number] [address] [place] [address], [place] [address] 05 Jun, 2012 [facility] [address] [id number] [address] [place] [address], [place] [address] Jun, [facility] [address] [id number] [address] [place] [address], [place] [address] Jun, [facility] [address] [id number] [address] [place] [address], [place] [address] May, [facility] [address] [id number] [address] [place] [address], [place] [address] May, [facility] [address] [id number] [address] [place] [address], [place] [address] May, [facility] [address] [id number] [address] [place] [address], [place] [address] May, [facility] [address] [id number] [address] [place] [address], [place] [address] May, [facility] [address] [id number] [address] [place] [address], [place] [address] May, [facility] [address] [id number] [address] [place] [address], [place] [address] May, [facility] [address] [id number] [address] [place] [address], [place] [address] May, [facility] [address] [id number] [address] [place] [address], [place] [address] Apr, [facility] [address] [id number] [address] [place] [address], [place] [address] Apr, [facility] [address] [id number] [address] [place] [address], [place] [address] 29 Apr, 2012 [facility] [address] [id number] [address] [place] [address] Apr, [facility] [address] [id number] [address] [place] [address], [place] [address] Apr, [facility] [address] [id number] [address] [place] [address], [place] [address] Apr, [facility] [address] [id number] [address] [place] [address] Apr, [facility] [address] [id number] [address] [place] [address], [place] [address] Apr, [facility] [address] [id number] [address] [place] [address], [place] [address] Apr, [facility] [address] [id number] [address] [place] [address], [place] [address] Apr, [facility] [address] [id number] [address] [place] [address], [place] [address] Apr, [facility] [address] [id number] [address] [place] [address], [place] [address] Apr, [facility] [address] [id number] [address] [place] [address], [place] [address] Mar, [facility] [address] [id number] [address] [place] [address], [place] [address] 18 Mar, 2012 [facility] [address] [id number] [address] [place] [address] Mar, [facility] [address] [id number] [address] [place] [address], [place] [address] Mar, [facility] [address] [id number] [address] [place] [id number] Mar, [facility] [address] [id number] [address] [place] [id number] Mar, [facility] [address] [id number] [address] [place] [id number] Mar, [facility] [address] [id number] [address] [place] [address] Jan, [facility] [address] [id number] [address] [place] [id number] Jan, [facility] [address] [id number] [address] [place] [id number] Jan, [facility] [address] [id number] [address] [place] [id number] Jan, [facility] [address] [id number] [address] [place] [address], [place] [address] Jan, [facility] [address] [id number] [address] [place] [address], [place] [address] Jan, [facility] [address] [id number] [address] [place] [address], [place] [address] Jan, [facility] [address] [id number] [address] [place] [address], [place] [address] Jan, [facility] [address] [id number] [address] [place] [address], [place] [address] Jan, [facility] [address] [id number] [address] [place] [address], [place] [address] Jan, [facility] [address] [id number] [address] [place] [address], [place] [address] Jan, [facility] [address] [id number] [address] [place] [address], [place] [address] Dec, [facility] [address] [id number] [address] [place] [address], [place] [address] Dec, [facility] [address] [id number] [address] [place] [address], [place] [address] Dec, [facility] [address] [id number] [address] [place] [address], [place] [address] Dec, [facility] [address] [id number] [address] [place] [address], [place] [address] Dec, [facility] [address] [id number] [address] [place] [address], [place] [address] Dec, [facility] [address] [id number] [address] [place] [address], [place] [address] Dec, [facility] [address] [id number] [address] [place] [address], [place] [address] Dec, [facility] [address] [id number] [address] [place] [address], [place] [address] 16 Jan, 2012 [facility] [address] [id number] [address] [place] [address], [place] [address] 13 Jan, 2012 [facility] [address] [id number] [address] [place] [address], [place] [address] 13 Jan, 2012 [facility] [address] [id number] [address] [place] [address], [place] [address] Dec, [facility] [address] [id number] [address] [place] [address], [place] [address] Dec, [facility] [address] [id number] [address] [place] [address], [place] [address] Dec, [facility] [address] [id number] [address] [place] [address], [place] [address] Dec, [facility] [address] [id number] [address] [place] [address], [place] [address] Dec, [facility] [address] [id number] [address] [place] [address], [place] [address] Dec, [facility] [address] [id number] [address] [place] [address], [place] [address] Dec, [facility] [address] [id number] [address] [place] [address], [place] [address] Dec, [facility] [address] [id number] [address] [place] [address], [place] [address] October, [facility] [address] [id number] [address] [place] [address], [place] [address] October, [facility] [address] [id number] [address] [place] [address], [place] [address] October, [facility] [address] [id number] [address] [place] [address], [place] [address] October, [facility] [address] [id number] [address] [place] [address], [place] [address] October, [facility] [address] [id number] [address] [place] [address], [place] [address] October, [facility] [address] [id number] [address] [place] [address], [place] [address] Oct, [facility] [address] [id number] [address] [place] [address], [place] [address] Oct, [facility] [address] [id number] [address] [place] [address], [place] [address] Oct, [facility] [address] [id number] [address] [place] [address], [place] [address] Oct, [facility] [address] [id number] [address] [place] [address], [place] [address] Oct, [facility] [address] [id number] [address] [place] [address], [place] [address] Oct, [facility] [address] [id number] [address] [place] [address], [place] [address] Oct, [facility] [address] [id number] [address] [place] [address], [place] [address] Aug, [facility] [address] [id number] [address] [place] [address], [place] [address] Aug, [facility] [address] [id number] [address] [place] [address], [place] [address] Aug, [facility] [address] [id number] [address] [place] [address], [place] [address] Aug, [facility] [address] [id number] [address] [place] [address], [place] [address] Aug, [facility] [address] [id number] [address] [place] [address], [place] [address] Aug, [facility] [address] [id number] [address] [place] [address], [place] [address] Aug, [facility] [address] [id number] [address] [place] [address], [place] [address] Aug, [facility] [address] [id number] [address] [place] [address], [place] [address] Aug, [facility] [address] [id number] [address] [place] [address], [place] [address] Jul, [facility] [address] [id number] [address] [place] [address], [place] [address] Jul, [facility] [address] [id number] [address] [place] [address], [place] [address] Jul, [facility] [address] [id number] [address] [place] [address], [place] [address] Jul, [facility] [address] [id number] [address] [place] [address], [place] [address] Jun, [facility] [address] [id number] [address] [place] [address], [place] [address] Jun, [facility] [address] [id number] [address] [place] [address], [place] [address] May, [facility] [address] [id number] [address] [place] [address], [place] [address] May, [facility] [address] [id number] [address] [place] [address], [place] [address] May, [facility] [address] [id number] [address] [place] [address], [place] [address] May, [facility] [address] [id number] [address] [place] [address], [place] [address] May, [facility] [address] [id number] [address] [place] [address], [place] [address] 28 Apr, 2011 [facility] [address] [id number] [address] [place] [address], [place] [address] 28 Apr, 2011 [facility] [address] [id number] [address] [place] [address], [place] [address] 10 Apr, 2011 [facility] [address] [id number] [address] [place] [address] Jan, [facility] [address] [id number] [address] [place] [address] Dec, [facility] [address] [id number] [address] [place] [id number] October, [facility] [address] [facility] [id number] [address] [place] [id number] Jun, [facility] [address] [id number] [address] [place] [address] Apr, [facility] [address] [facility] [id number] [address] [place] [id number] Apr, [facility] [address] [facility] [id number] [address] [place] [id number] Apr, [facility] [address] [facility] [id number] [address] [place] [id number] Jun, IMMUNIZATIONS No Known Immunizations SOCIAL HISTORY [...]
--- OUTSIDE RECORDS SUMMARY | 2020-01-25 13:25 | XMS REPORT ---
Author Author Ana Brannon [facility] Address [address] [place] [address] Care Team Providers Care Electronic Warfare Linguist Name Role Phone Clovis ANEUDY Unavailable PROBLEMS Type Condition ICD9-CM Code [id number] Code Onset Dates Condition S tatus SNOMED Code Problem Chronic hepatitis C without hepatic coma B18.2 Active 240453646 Problem Cannabis abuse F12.10 Active 85085 009 Problem Bipolar 1 disorder F31.9 Active 3 58034839 Problem Attention deficit hyperactivity disorder (ADHD), combi luciano type F90.2 Active 47163530 Problem Attention deficit R41.840 Active 76 276433 Problem Hot flashes due to menopause N95.1 A ctive 638398374 Problem H/O laminectomy Z98.89 Active 1616 16444 Problem Other chronic pain G89.29 Active 8 5680022 Problem Anxiety disorder, unspecified type F41.9 Active 552774803 Problem Bipolar disorder, in partial remission, most rec ent episode hypomanic F31.71 Active 146064686 ALLERGIES No Information ENCOUNTERS Encounter Location Date Diagnosis [facility] [address] [id number] [address] [place] [address] [id number] Oct, [facility] [address] [facility] [id number] [address] [place] [address] Oct, [facility] [address] [facility] [id number] [address] [place] [address] Aug, [facility] [address] [facility] [id number] [address] [place] [phone] Jul, [facility] [address] [facility] [id number] [address] [place] [id number] Jul, [facility] [address] [facility] [id number] [address] [place] [phone] Apr, [facility] [address] [id number] [address] [place] [id number] Mar, Hot flashes due to menopause N95.1 ; Anxiety disorder, unspecified type F41.9 ; Low back pain M54.5 and Encounter for immunization Z23 [facility] [address] [id number] [address] [place] [id number] Dec, Other chronic pain G89.29 an d Low back pain M54.5 [facility] [address] [id number] [address] [place] [phone] October, [facility] [address] [id number] [address] [place] [address] October, [facility] [address] [id number] [address] [place] [id number] October, [facility] [address] [facility] [id number] [address] [place] [address] October, Other chronic pain G89.29 an d Chronic hepatitis C without hepatic coma B18.2 [facility] [address] [id number] [address] [place] [address] Aug, Bipolar disorder, in partial remission, most recent episode hypomanic F31.71 ; Attention deficit hyperactivity disorder (ADHD), combined type F90.2 and Anxiety disorder, unspecified type F41.9 [facility] [address] [id number] [address] [place] [address] Aug, [facility] [address] [id number] [address] [place] [id number] Aug, Bipolar disorder, in partial remission, most recent episode hypomanic F31.71 [facility] [address] [facility] [id number] [address] [place] [address] Aug, [facility] [address] [facility] [id number] [address] [place] [id number] Aug, Bipolar disorder, in partial remission, most recent episode hypomanic F31.71 [facility] [address] [id number] [address] [place] [id number] Aug, Bipolar disorder, in partial remission, most recent episode hypomanic F31.71 ; Attention deficit hyperactivity disorder (ADHD), combined type F90.2 and Anxiety disorder, unspecified type F41.9 [facility] [address] [id number] [address] [place] [address] Aug, Low back pain M54.5 and Pain in left wrist M25.532 [facility] [address] [id number] [address] [place] [id number] Aug, [facility] [address] [id number] [address] [place] [id number] Jun, [facility] [address] [id number] [address] [place] [address] Apr, Bipolar disorder, in partial remission, most recent episode hypomanic F31.71 [facility] [address] [id number] [address] [place] [address] Apr, [facility] [address] [id number] [address] [place] [id number] Apr, Bipolar disorder, in partial remission, most recent episode hypomanic F31.71 ; Attention deficit hyperactivity disorder (ADHD), combined type F90.2 ; Anxiety disorder, unspecified type F41.9 and Other fci (current) drug therapy Z79.899 [facility] [address] [id number] [address] [place] [id number] Apr, Bipolar disorder, in partial remission, most recent episode hypomanic F31.71 [facility] [address] [id number] [address] [place] [id number] Apr, Bipolar disorder, in partial remission, most recent episode hypomanic F31.71 [facility] [address] [id number] [address] [place] [address] Mar, [facility] [address] [id number] [address] [place] [id number] Mar, Bipolar disorder, in partial remission, most recent episode hypomanic F31.71 ; Encounter for immunization Z23 and Low back pain M54.5 [facility] [address] [id number] [address] [place] [id number] 17 Mar, 2018 Bipolar disorder, in partial remission, most recent episode hypomanic F31.71 [facility] [address] [id number] [address] [place] [id number] Mar, Bipolar disorder, in partial remission, most recent episode hypomanic F31.71 [facility] [address] [id number] [address] [place] [address] Jan, Bipolar disorder, in partial remission, most recent episode hypomanic F31.71 [facility] [address] [id number] [address] [place] [address] Jan, Bipolar disorder, in partial remission, most recent episode hypomanic F31.71 [facility] [address] [id number] [address] [place] [id number] Dec, Bipolar disorder, in partial remission, most recent episode hypomanic F31.71 [facility] [address] [facility] [id number] [address] [place] [id number] Dec, Bipolar disorder, in partial remission, most recent episode hypomanic F31.71 ; Attention deficit hyperactivity disorder (ADHD), combined type F90.2 ; Anxiety disorder, unspecified type F41.9 and Other fci (current) drug therapy Z79.899 [facility] [address] [id number] [address] [place] [id number] Dec, Bipolar disorder, in partial remission, most recent episode hypomanic F31.71 [facility] [address] [facility] [id number] [address] [place] [id number] Dec, Bipolar disorder, in partial remission, most recent episode hypomanic F31.71 [facility] [address] [facility] [id number] [address] [place] [address] October, Bipolar disorder, in partial remission, most recent episode hypomanic F31.71 [facility] [address] [id number] [address] [place] [id number] October, [facility] [address] [id number] [address] [place] [address] October, [facility] [address] [id number] [address] [place] [id number] Oct, Bipolar disorder, in partial remission, most recent episode hypomanic F31.71 ; Attention deficit hyperactivity disorder (ADHD), combined type F90.2 ; Anxiety disorder, unspecified type F41.9 and Encounter for drug screening Z02.83 [facility] [address] [id number] [address] [place] [phone] Oct, Bipolar disorder, in partial remission, most recent episode hypomanic F31.71 [facility] [address] [id number] [address] [place] [id number] Oct, Bipolar disorder, in partial remission, most recent episode hypomanic F31.71 [facility] [address] [facility] [id number] [address] [place] [id number] Aug, Bipolar disorder, in partial remission, most recent episode hypomanic F31.71 [facility] [address] [facility] [id number] [address] [place] [id number] Aug, Bipolar disorder, in partial remission, most recent episode hypomanic F31.71 [facility] [address] [id number] [address] [place] [id number] Aug, Bipolar disorder, in partial remission, most recent episode hypomanic F31.71 [facility] [address] [facility] [id number] [address] [place] [id number] Jul, Bipolar disorder, in partial remission, most recent episode hypomanic F31.71 ; Attention deficit hyperactivity disorder (ADHD), combined type F90.2 and Anxiety disorder, unspecified type F41.9 [facility] [address] [id number] [address] [place] [id number] Jul, Bipolar disorder, in partial remission, most recent episode hypomanic F31.71 [facility] [address] [id number] [address] [place] [id number] Jun, Bipolar disorder, in partial remission, most recent episode hypomanic F31.71 [facility] [address] [id number] [address] [place] [id number] May, Bipolar disorder, in partial remission, most recent episode hypomanic F31.71 [facility] [address] [id number] [address] [place] [id number] May, Bipolar disorder, in partial remission, most recent episode hypomanic F31.71 [facility] [address] [facility] [id number] [address] [place] [address] Apr, [facility] [address] [facility] [id number] [address] [place] [address] Apr, Bipolar disorder, in partial remission, most recent episode hypomanic F31.71 ; Attention deficit hyperactivity disorder (ADHD), combined type F90.2 ; Anxiety disorder, unspecified type F41.9 and Cannabis abuse F12.10 [facility] [address] [facility] [id number] [address] [place] [id number] Apr, Attention deficit hyperactiv ity disorder (ADHD), combined type F90.2 [facility] [address] [id number] [address] [place] [id number] Mar, Attention deficit hyperactiv ity disorder (ADHD), combined type F90.2 [facility] [address] [id number] [address] [place] [id number] 14 Mar, 2017 Anxiety disorder, unspecifie d type F41.9 [facility] [address] [facility] [id number] [address] [place] [phone] Jan, Attention deficit hyperactiv ity disorder (ADHD), combined type F90.2 [facility] [address] [place] [id number] [address] [place] [id number] Jan, Anxiety disorder, unspecifie d type F41.9 [facility] [address] [place] [id number] [address] [place] [id number] Jan, Other chronic pain G89.29 ; Chronic hepatitis C without hepatic coma B18.2 and Bipolar 1 disorder F31.9 [facility] [address] [place] [id number] [address] [place] [id number] Dec, Attention deficit hyperactiv ity disorder (ADHD), combined type F90.2 [facility] [address] [place] [id number] [address] [place] [id number] Dec, Bipolar disorder, in partial remission, most recent episode hypomanic F31.71 ; Attention deficit hyperactivity disorder (ADHD), combined type F90.2 and Anxiety disorder, unspecified type F41.9 [place] [address] [place] [id number] [place] [address] Dec, Bipolar disorder, in partial remission, most recent episode hypomanic F31.71 ; Attention deficit hyperactivity disorder (ADHD), combined type F90.2 and Anxiety disorder, unspecified type F41.9 [place] [address] [place] [id number] [place] [address] Dec, Bipolar 1 disorder F31.9 and Attention deficit R41.840 [place] [address] [place] [id number] [address] [place] [phone] Oct, Other chronic pain G89.29 ; Alopecia L65.9 and Screening, lipid Z13.220 [facility] [address] [place] [id number] [address] [place] [address] Oct, [place] [address] [place] [id number] [place] [phone] Aug, [place] [address] [place] [id number] [place] [address] Aug, Eustachian tube dysfunction, right H69.81 ; Vertigo R42 and Other chronic pain G89.29 [facility] [address] [id number] [address] [place] [id number] Aug, [facility] [address] [id number] [address] [place] [phone] Jun, [facility] [address] [id number] [address] [place] [phone] Jun, Low back pain M54.5 and Othe r chronic pain G89.29 [facility] [address] [id number] [address] [place] [id number] Jun, [facility] [address] [id number] [address] [place] [id number] May, [facility] [address] [id number] [address] [place] [phone] Jan, [facility] [address] [id number] [address] [place] [id number] Dec, [facility] [address] [id number] [address] [place] [id number] Dec, [facility] [address] [id number] [address] [place] [id number] Jun, [facility] [address] [facility] [id number] [address] [place] [phone] Apr, Eustachian tube dysfunction, unspecified laterality H69.80 ; Hot flashes N95.1 and Encounter for immunization Z23 [facility] [address] [id number] [address] [place] [id number] Jan, [facility] [address] [id number] [address] [place] [phone] Jan, [facility] [address] [id number] [address] [place] [id number] Jan, [facility] [address] [id number] [address] [place] [id number] Jan, [facility] [address] [id number] [address] [place] [address] Jan, Encounter to establish care V65.8 ; Bipolar 1 disorder 296.7 ; Abdominal pain 789.00 ; Constipation 564.00 ; Hard of hearing 389.9 and Drug abuse 305.90 [facility] [address] [id number] [address] [place] [id number] Dec, [facility] [address] [id number] [address] [place] [id number] October, [facility] [address] [id number] [address] [place] [id number] October, [facility] [address] [id number] [address] [place] [id number] Oct, [facility] [address] [id number] [address] [place] [id number] Oct, [facility] [address] [id number] [address] [place] [phone] Oct, [facility] [address] [id number] [address] [place] [phone] Aug, [facility] [address] [id number] [address] [place] [id number] Aug, [facility] [address] [id number] [address] [place] [id number] Aug, [facility] [address] [id number] [address] [place] [address] Aug, [facility] [address] [id number] [address] [place] [phone] Aug, [facility] [address] [id number] [address] [place] [phone] Aug, [facility] [address] [id number] [address] [place] [phone] Aug, [facility] [address] [id number] [address] [place] [address], [place] [address] Aug, 2014 [facility] [address] [id number] [address] [place] [address], [place] [address] Aug, 2014 [facility] [address] [id number] [address] [place] [address], [place] [address] Aug, 2014 [facility] [address] [id number] [address] [place] [address], [place] [address] Aug, 2014 [facility] [address] [id number] [address] [place] [address], [place] [address] Aug, 2014 [facility] [address] [id number] [address] [place] [address], [place] [address] Aug, 2014 [facility] [address] [id number] [address] [place] [address], [place] [address] Aug, 2014 [facility] [address] [id number] [address] [place] [address], [place] [address] Aug, [facility] [address] [id number] [address] [place] [address], [place] [address] Jul, [facility] [address] [id number] [address] [place] [address], [place] [address] Jul, [facility] [address] [id number] [address] [place] [address], [place] [address] Jul, [facility] [address] [id number] [address] [place] [address], [place] [address] Jul, [facility] [address] [id number] [address] [place] [address], [place] [address] Jul, [facility] [address] [id number] [address] [place] [address], [place] [address] Jul, [facility] [address] [id number] [address] [place] [address], [place] [address] Jul, [facility] [address] [id number] [address] [place] [address], [place] [address] Jul, [facility] [address] [id number] [address] [place] [address], [place] [address] Jun, [facility] [address] [id number] [address] [place] [address], [place] [address] Jun, [facility] [address] [id number] [address] [place] [address], [place] [address] Jun, [facility] [address] [id number] [address] [place] [address], [place] [address] Jun, [facility] [address] [id number] [address] [place] [address], [place] [address] Jun, [facility] [address] [id number] [address] [place] [address], [place] [address] Jun, [facility] [address] [id number] [address] [place] [address], [place] [address] Jun, [facility] [address] [id number] [address] [place] [address], [place] [address] Jun, [facility] [address] [id number] [address] [place] [address], [place] [address] Jun, [facility] [address] [id number] [address] [place] [address], [place] [address] Jun, [facility] [address] [id number] [address] [place] [address], [place] [address] Jun, [facility] [address] [id number] [address] [place] [address], [place] [address] May, [facility] [address] [id number] [address] [place] [address], [place] [address] May, [facility] [address] [id number] [address] [place] [address], [place] [address] May, [facility] [address] [id number] [address] [place] [address], [place] [address] May, [facility] [address] [id number] [address] [place] [address], [place] [address] May, [facility] [address] [id number] [address] [place] [address], [place] [address] May, [facility] [address] [id number] [address] [place] [address], [place] [address] May, [facility] [address] [id number] [address] [place] [address], [place] [address] Apr, [facility] [address] [id number] [address] [place] [address], [place] [address] Apr, [facility] [address] [id number] [address] [place] [address], [place] [address] Apr, [facility] [address] [id number] [address] [place] [address], [place] [address] Apr, [facility] [address] [id number] [address] [place] [address], [place] [address] Apr, [facility] [address] [id number] [address] [place] [address], [place] [address] Apr, [facility] [address] [id number] [address] [place] [address], [place] [address] Mar, [facility] [address] [id number] [address] [place] [address], [place] [address] 29 Mar, 2014 [facility] [address] [id number] [address] [place] [address], [place] [address] Mar, [facility] [address] [id number] [address] [place] [address], [place] [address] Mar, [facility] [address] [id number] [address] [place] [address], [place] [address] Mar, [facility] [address] [id number] [address] [place] [address], [place] [address] Mar, [facility] [address] [id number] [address] [place] [address], [place] [address] Jan, [facility] [address] [id number] [address] [place] [address], [place] [address] Jan, [facility] [address] [id number] [address] [place] [address], [place] [address] Jan, [facility] [address] [id number] [address] [place] [address], [place] [address] Jan, [facility] [address] [id number] [address] [place] [address], [place] [address] Dec, [facility] [address] [id number] [address] [place] [address], [place] [address] Dec, [facility] [address] [id number] [address] [place] [address], [place] [address] Dec, [facility] [address] [id number] [address] [place] [address], [place] [address] Dec, [facility] [address] [id number] [address] [place] [address], [place] [address] Dec, [facility] [address] [id number] [address] [place] [address], [place] [address] Dec, [facility] [address] [id number] [address] [place] [address], [place] [address] Dec, [facility] [address] [id number] [address] [place] [address], [place] [address] Dec, [facility] [address] [id number] [address] [place] [address], [place] [address] Dec, [facility] [address] [id number] [address] [place] [address], [place] [address] Dec, [facility] [address] [id number] [address] [place] [address], [place] [address] Dec, [facility] [address] [id number] [address] [place] [address], [place] [address] Dec, [facility] [address] [id number] [address] [place] [address], [place] [address] October, [facility] [address] [id number] [address] [place] [address], [place] [address] October, [facility] [address] [id number] [address] [place] [address], [place] [address] October, [facility] [address] [id number] [address] [place] [address], [place] [address] October, [facility] [address] [id number] [address] [place] [address], [place] [address] October, [facility] [address] [id number] [address] [place] [address], [place] [address] October, [facility] [address] [id number] [address] [place] [address], [place] [address] Oct, [facility] [address] [id number] [address] [place] [address], [place] [address] Oct, [facility] [address] [id number] [address] [place] [address], [place] [address] Oct, [facility] [address] [id number] [address] [place] [address], [place] [address] Oct, [facility] [address] [id number] [address] [place] [address], [place] [address] Oct, [facility] [address] [id number] [address] [place] [address], [place] [address] Oct, [facility] [address] [id number] [address] [place] [address], [place] [address] Oct, [facility] [address] [id number] [address] [place] [address], [place] [address] Oct, [facility] [address] [id number] [address] [place] [address], [place] [address] Oct, [facility] [address] [id number] [address] [place] [address], [place] [address] Oct, [facility] [address] [id number] [facility] [place] [address] 08 Oct, 2013 [facility] [address] [id number] [facility] [place] [address] 08 Oct, 2013 [facility] [address] [id number] [address] [place] [address] 15 Aug, 2013 [facility] [address] [id number] [address] [place] [address], [place] [address] 15 Aug, 2013 [facility] [address] [id number] [address] [place] [address], [place] [address] Aug, [facility] [address] [id number] [address] [place] [address], [place] [address] Aug, [facility] [address] [id number] [address] [place] [address], [place] [address] Aug, [facility] [address] [id number] [address] [place] [address], [place] [address] Aug, [facility] [address] [id number] [address] [place] [address], [place] [address] Aug, [facility] [address] [id number] [address] [place] [address], [place] [address] Aug, [facility] [address] [id number] [address] [place] [address], [place] [address] Aug, [facility] [address] [id number] [address] [place] [address], [place] [address] Aug, [facility] [address] [id number] [address] [place] [address], [place] [address] Aug, [facility] [address] [id number] [address] [place] [address], [place] [address] Aug, [facility] [address] [id number] [address] [place] [address], [place] [address] Aug, [facility] [address] [id number] [address] [place] [address], [place] [address] 20 Aug, 2013 [facility] [address] [id number] [address] [place] [address], [place] [address] 14 Aug, 2013 [facility] [address] [id number] [address] [place] [address], [place] [address] 14 Aug, 2013 [facility] [address] [id number] [address] [place] [address], [place] [address] 14 Aug, 2013 [facility] [address] [id number] [address] [place] [address], [place] [address] 14 Aug, 2013 [facility] [address] [id number] [address] [place] [address], [place] [address] 07 Aug, 2013 [facility] [address] [id number] [address] [place] [address], [place] [address] 07 Aug, 2013 [facility] [address] [id number] [address] [place] [address], [place] [address] 06 Aug, 2013 [facility] [address] [id number] [address] [place] [address], [place] [address] 06 Aug, 2013 [facility] [address] [id number] [address] [place] [address], [place] [address] 04 Aug, 2013 [facility] [address] [id number] [address] [place] [address], [place] [address] 04 Aug, 2013 [facility] [address] [id number] [address] [place] [address], [place] [address] Aug, [facility] [address] [id number] [address] [place] [address], [place] [address] Jul, [facility] [address] [id number] [address] [place] [address], [place] [address] Jul, [facility] [address] [id number] [address] [place] [address], [place] [address] Jul, [facility] [address] [id number] [address] [place] [address], [place] [address] Jul, [facility] [address] [id number] [address] [place] [address], [place] [address] Jul, [facility] [address] [id number] [address] [place] [address], [place] [address] Jul, [facility] [address] [id number] [address] [place] [address], [place] [address] Jul, [facility] [address] [id number] [address] [place] [address], [place] [address] Jul, [facility] [address] [id number] [address] [place] [address], [place] [address] Jul, [facility] [address] [id number] [address] [place] [address], [place] [address] Jul, [facility] [address] [id number] [address] [place] [address], [place] [address] Jul, [facility] [address] [id number] [address] [place] [address], [place] [address] Jul, [facility] [address] [id number] [address] [place] [address], [place] [address] Jul, [facility] [address] [id number] [address] [place] [address], [place] [address] Jul, [facility] [address] [id number] [address] [place] [address], [place] [address] Jul, [facility] [address] [id number] [address] [place] [address], [place] [address] Jul, [facility] [address] [id number] [address] [place] [address], [place] [address] Jul, [facility] [address] [id number] [address] [place] [address], [place] [address] Jul, [facility] [address] [id number] [address] [place] [address], [place] [address] Jul, [facility] [address] [id number] [address] [place] [address], [place] [address] Jul, [facility] [place] [address] [id number] [address] [place] [address], [place] [address] Jun, [facility] [address] [id number] [address] [place] [address], [place] [address] Jun, [facility] [address] [id number] [address] [place] [address], [place] [address] Jun, [facility] [address] [id number] [address] [place] [address], [place] [address] Jun, [facility] [address] [id number] [address] [place] [address], [place] [address] Jun, [facility] [address] [id number] [address] [place] [address], [place] [address] Jun, [facility] [address] [id number] [address] [place] [address], [place] [address] Jun, [facility] [place] [address] [id number] [address] [place] [address], [place] [address] Jun, [facility] [place] [address] [id number] [address] [place] [address], [place] [address] Jun, [facility] [address] [id number] [address] [place] [address], [place] [address] Jun, [facility] [place] [address] [id number] [address] [place] [address], [place] [address] Jun, [facility] [address] [id number] [address] [place] [address], [place] [address] Jun, [facility] [address] [id number] [address] [place] [address], [place] [address] Jun, [facility] [address] [id number] [address] [place] [address], [place] [address] Jun, [facility] [address] [id number] [address] [place] [address], [place] [address] Jun, [facility] [address] [id number] [address] [place] [address], [place] [address] 18 Jun, 2013 [facility] [address] [id number] [address] [place] [address], [place] [address] 18 Jun, 2013 [facility] [address] [id number] [address] [place] [address], [place] [address] 17 Jun, 2013 [facility] [address] [id number] [address] [place] [address], [place] [address] 17 Jun, 2013 [facility] [address] [id number] [address] [place] [address], [place] [address] 13 Jun, 2013 [facility] [address] [id number] [address] [place] [address], [place] [address] Jun, [facility] [address] [id number] [address] [place] [address], [place] [address] Jun, [facility] [address] [id number] [address] [place] [address], [place] [address] Jun, [facility] [address] [id number] [address] [place] [address], [place] [address] 05 Jun, 2013 [facility] [address] [id number] [address] [place] [address], [place] [address] 05 Jun, 2013 [facility] [address] [id number] [address] [place] [address], [place] [address] 04 Jun, 2013 [facility] [address] [id number] [address] [place] [address], [place] [address] 04 Jun, 2013 [facility] [address] [id number] [address] [place] [address], [place] [address] 17 May, 2013 [facility] [address] [id number] [address] [place] [address], [place] [address] 17 May, 2013 [facility] [address] [id number] [address] [place] [address], [place] [address] May, [facility] [address] [id number] [address] [place] [address] [address] May, [facility] [address] [id number] [address] [place] [address], [place] [address] May, [facility] [address] [id number] [address] [place] [address], [place] [address] May, [facility] [address] [id number] [address] [place] [address], [place] [address] Apr, [facility] [address] [id number] [address] [place] [address], [place] [address] Apr, [facility] [address] [id number] [address] [place] [address], [place] [address] Apr, [facility] [address] [id number] [address] [place] [address], [place] [address] Apr, [facility] [address] [id number] [address] [place] [address], [place] [address] Apr, [facility] [address] [id number] [address] [place] [address], [place] [address] Apr, [facility] [address] [id number] [address] [place] [address], [place] [address] Apr, [facility] [address] [id number] [address] [place] [address] Apr, [facility] [address] [id number] [address] [place] [address] 26 Mar, 2012 [facility] [address] [id number] [address] [place] [address] 24 Sep, 2012 [facility] [address] [id number] [address] [place] [address], [place] [address] 17 Sep2012 [facility] [address] [id number] [address] [place] [address] 17 Sep, 2012 [facility] [address] [id number] [address] [place] [address], [place] [address] 11 Mar, 2013 [facility] [address] [id number] [address] [place] [address] 10 Mar, 2013 [facility] [address] [id number] [address] [place] [address], [place] [address] 05 Mar, 2013 [facility] [address] [id number] [address] [place] [address], [place] [address] 04 Mar, 2013 [facility] [address] [id number] [address] [place] [address], [place] [address] 20 Jan, 2013 [facility] [address] [id number] [address] [place] [address], [place] [address] Jan, [facility] [address] [id number] [address] [place] [address], [place] [address] 14 Jan, 2013 [facility] [address] [id number] [address] [place] [address], [place] [address] Jan, [facility] [place] [address] [id number] [address] [place] [address], [place] [address] Jan, [facility] [address] [id number] [address] [place] [address], [place] [address] Jan, [facility] [address] [id number] [address] [place] [address], [place] [address] Dec, [facility] [place] [address] [id number] [address] [place] [address], [place] [address] Dec, [facility] [address] [id number] [address] [place] [address], [place] [address] Dec, [facility] [address] [id number] [address] [place] [address], [place] [address] Dec, [facility] [address] [id number] [address] [place] [address], [place] [address] 18 Dec, 2012 [facility] [address] [id number] [address] [place] [address], [place] [address] 17 Dec, 2012 [facility] [address] [id number] [address] [place] [address], [place] [address] 16 Dec, 2012 [facility] [address] [id number] [address] [place] [address], [place] [address] 16 Dec, 2012 [facility] [place] [address] [id number] [address] [place] [address], [place] [address] 15 Dec, 2012 [facility] [address] [id number] [address] [place] [address], [place] [address] 10 Dec, 2012 [facility] [place] [address] [id number] [address] [place] [address], [place] [address] Dec, [facility] [place] [address] [id number] [address] [place] [address], [place] [address] Dec, [facility] [place] [address] [id number] [address] [place] [address], [place] [address] Dec, [facility] [address] [id number] [address] [place] [address], [place] [address] Dec, [facility] [place] [address] [id number] [address] [place] [address], [place] [address] Dec, [facility] [address] [id number] [address] [place] [address], [place] [address] Dec, [facility] [address] [id number] [address] [place] [address], [place] [address] October, [facility] [address] [id number] [address] [place] [address], [place] [address] October, [facility] [address] [id number] [address] [place] [address], [place] [address] October, [facility] [address] [id number] [address] [place] [address], [place] [address] October, [facility] [address] [id number] [address] [place] [address], [place] [address] October, [facility] [address] [id number] [address] [place] [address], [place] [address] October, [facility] [address] [id number] [address] [place] [address], [place] [address] October, [facility] [address] [id number] [address] [place] [address], [place] [address] Oct, [facility] [address] [id number] [address] [place] [address], [place] [address] Oct, [facility] [address] [id number] [address] [place] [address], [place] [address] Oct, [facility] [address] [id number] [address] [place] [address], [place] [address] Oct, [facility] [address] [id number] [address] [place] [address], [place] [address] Oct, [facility] [address] [id number] [address] [place] [address], [place] [address] Oct, [facility] [address] [id number] [address] [place] [address], [place] [address] Oct, [facility] [address] [id number] [address] [place] [address], [place] [address] 15 Oct, 2012 [facility] [address] [id number] [address] [place] [address], [place] [address] Oct, [facility] [address] [id number] [address] [place] [address], [place] [address] Oct, [facility] [address] [id number] [address] [place] [address], [place] [address] Oct, [facility] [address] [id number] [address] [place] [address], [place] [address] Oct, [facility] [address] [id number] [address] [place] [address], [place] [address] Aug, [facility] [address] [id number] [address] [place] [address], [place] [address] Aug, [facility] [address] [id number] [address] [place] [address], [place] [address] Aug, [facility] [address] [id number] [address] [place] [address], [place] [address] 06 Aug, 2012 [facility] [address] [id number] [address] [place] [address], [place] [address] 05 Aug, 2012 [facility] [address] [id number] [address] [place] [address], [place] [address] 05 Aug, 2012 [facility] [address] [id number] [address] [place] [address], [place] [address] 20 Aug, 2012 [facility] [address] [id number] [address] [place] [address], [place] [address] 14 Aug, 2012 [facility] [address] [id number] [address] [place] [address], [place] [address] 12 Aug, 2012 [facility] [address] [id number] [address] [place] [address], [place] [address] Aug, [facility] [address] [id number] [address] [place] [address], [place] [address] 29 Jul, 2012 [facility] [place] [address] [id number] [address] [place] [address], [place] [address] 15 Jul, 2012 [facility] [place] [address] [id number] [address] [place] [address], [place] [address] 08 Jul, 2012 [facility] [address] [id number] [address] [place] [address], [place] [address] 20 Jun, 2012 [facility] [place] [address] [id number] [address] [place] [address], [place] [address] 18 Jun, 2012 [facility] [address] [id number] [address] [place] [address], [place] [address] 18 Jun, 2012 [facility] [address] [id number] [address] [place] [address], [place] [address] 18 Jun, 2012 [facility] [address] [id number] [address] [place] [address], [place] [address] 18 Jun, 2012 [facility] [address] [id number] [address] [place] [address] [address] 14 Jun, 2012 [facility] [address] [id number] [address] [place] [address], [place] [address] 14 Jun, 2012 [facility] [address] [id number] [address] [place] [address], [place] [address] 13 Jun, 2012 [facility] [address] [id number] [address] [place] [address], [place] [address] 13 Jun, 2012 [facility] [address] [id number] [address] [place] [address], [place] [address] 11 Jun, 2012 [facility] [address] [id number] [address] [place] [address], [place] [address] 11 Jun, 2012 [facility] [address] [id number] [address] [place] [address], [place] [address] 11 Jun, 2012 [facility] [address] [id number] [address] [place] [address], [place] [address] Jun, [facility] [address] [id number] [address] [place] [address], [place] [address] 07 Jun, 2012 [facility] [address] [id number] [address] [place] [address], [place] [address] 07 Jun, 2012 [facility] [address] [id number] [address] [place] [address], [place] [address] 06 Jun, 2012 [facility] [address] [id number] [address] [place] [address], [place] [address] Jun, [facility] [address] [id number] [address] [place] [address], [place] [address] Jun, [facility] [address] [id number] [address] [place] [address], [place] [address] Jun, [facility] [address] [id number] [address] [place] [address], [place] [address] 05 Jun, 2012 [facility] [address] [id number] [address] [place] [address], [place] [address] 05 Jun, 2012 [facility] [address] [id number] [address] [place] [address], [place] [address] Jun, [facility] [address] [id number] [address] [place] [address], [place] [address] Jun, [facility] [address] [id number] [address] [place] [address], [place] [address] May, [facility] [address] [id number] [address] [place] [address], [place] [address] May, [facility] [address] [id number] [address] [place] [address], [place] [address] May, [facility] [address] [id number] [address] [place] [address], [place] [address] May, [facility] [address] [id number] [address] [place] [address], [place] [address] May, [facility] [address] [id number] [address] [place] [address], [place] [address] May, [facility] [address] [id number] [address] [place] [address], [place] [address] May, [facility] [address] [id number] [address] [place] [address], [place] [address] May, [facility] [address] [id number] [address] [place] [address], [place] [address] Apr, [facility] [address] [id number] [address] [place] [address], [place] [address] 30 Apr, 2012 [facility] [address] [id number] [address] [place] [address], [place] [address] 29 Apr, 2012 [facility] [address] [id number] [address] [place] [address], [place] [address] Apr, [facility] [address] [id number] [address] [place] [address], [place] [address] Apr, [facility] [address] [id number] [address] [place] [address] Apr, [facility] [address] [id number] [address] [place] [address], [place] [address] Apr, [facility] [address] [id number] [address] [place] [address], [place] [address] Apr, [facility] [address] [id number] [address] [place] [address], [place] [address] Apr, [facility] [address] [id number] [address] [place] [address], [place] [address] Apr, [facility] [address] [id number] [address] [place] [address], [place] [address] Apr, [facility] [address] [id number] [address] [place] [address], [place] [address] Apr, [facility] [address] [id number] [address] [place] [address], [place] [address] Mar, [facility] [address] [id number] [address] [place] [address], [place] [address] 18 Mar, 2012 [facility] [address] [id number] [address] [place] [address], [place] [address] Mar, [facility] [address] [id number] [address] [place] [id number] Mar, [facility] [address] [id number] [address] [place] [id number] Mar, [facility] [address] [id number] [address] [place] [id number] Mar, [facility] [address] [id number] [address] [place] [address] Mar, [facility] [address] [id number] [address] [place] [address] Jan, [facility] [address] [id number] [address] [place] [phone] Jan, [facility] [address] [id number] [address] [place] [address] [id number] Jan, [facility] [address] [id number] [address] [place] [address], [place] [id number] Jan, [facility] [address] [id number] [address] [place] [address], [place] [address] Jan, [facility] [address] [id number] [address] [place] [address], [place] [address] Jan, [facility] [address] [id number] [address] [place] [address], [place] [address] Jan, [facility] [address] [id number] [address] [place] [address], [place] [address] Jan, [facility] [address] [id number] [address] [place] [address], [place] [address] Jan, [facility] [address] [id number] [address] [place] [address], [place] [address] Jan, [facility] [address] [id number] [address] [place] [address], [place] [address] Jan, [facility] [address] [id number] [address] [place] [address], [place] [address] Dec, [facility] [address] [id number] [address] [place] [address], [place] [address] Dec, [facility] [address] [id number] [address] [place] [address], [place] [address] Dec, [facility] [address] [id number] [address] [place] [address], [place] [address] Dec, [facility] [address] [id number] [address] [place] [address], [place] [address] Dec, [facility] [address] [id number] [address] [place] [address], [place] [address] Dec, [facility] [address] [id number] [address] [place] [address], [place] [address] Dec, [facility] [address] [id number] [facility] [place] [address] 17 Jan, 2012 [facility] [address] [id number] [address] [place] [address], [place] [address] 16 Jan, 2012 [facility] [address] [id number] [address] [place] [address], [place] [address] 13 Jan, 2012 [facility] [address] [id number] [address] [place] [address], [place] [address] 13 Jan, 2012 [facility] [address] [id number] [address] [place] [address], [place] [address] Dec, [facility] [address] [id number] [address] [place] [address], [place] [address] Dec, [facility] [address] [id number] [address] [place] [address], [place] [address] Dec, [facility] [place] [address] [id number] [address] [place] [address], [place] [address] Dec, [facility] [address] [id number] [address] [place] [address], [place] [address] Dec, [facility] [address] [id number] [address] [place] [address], [place] [address] 15 Dec, 2011 [facility] [place] [address] [id number] [address] [place] [address], [place] [address] 06 Dec, 2011 [facility] [address] [id number] [address] [place] [address], [place] [address] 05 Dec, 2011 [facility] [address] [id number] [address] [place] [address], [place] [address] October, [facility] [address] [id number] [address] [place] [address], [place] [address] October, [facility] [address] [id number] [address] [place] [address], [place] [address] October, [facility] [address] [id number] [address] [place] [address], [place] [address] October, [facility] [address] [id number] [address] [place] [address], [place] [address] October, [facility] [address] [id number] [address] [place] [address], [place] [address] October, [facility] [address] [id number] [address] [place] [address], [place] [address] Oct, [facility] [address] [id number] [address] [place] [address], [place] [address] Oct, [facility] [address] [id number] [address] [place] [address], [place] [address] Oct, [facility] [address] [id number] [address] [place] [address], [place] [address] Oct, [facility] [address] [id number] [address] [place] [address], [place] [address] Oct, [facility] [place] [address] [id number] [address] [place] [address], [place] [address] Oct, [facility] [address] [id number] [address] [place] [address], [place] [address] Oct, [facility] [address] [id number] [address] [place] [address], [place] [address] Aug, [facility] [address] [id number] [address] [place] [address], [place] [address] Aug, [facility] [address] [id number] [address] [place] [address], [place] [address] Aug, [facility] [address] [id number] [address] [place] [address], [place] [address] Aug, [facility] [address] [id number] [address] [place] [address], [place] [address] Aug, [facility] [address] [id number] [address] [place] [address], [place] [address] Aug, [facility] [address] [id number] [address] [place] [address], [place] [address] Aug, [facility] [address] [id number] [address] [place] [address], [place] [address] Aug, [facility] [address] [id number] [address] [place] [address], [place] [address] 08 Aug, 2011 [facility] [address] [id number] [address] [place] [address], [place] [address] Jul, [facility] [address] [id number] [address] [place] [address], [place] [address] Jul, [facility] [address] [id number] [address] [place] [address], [place] [address] Jul, [facility] [address] [id number] [address] [place] [address], [place] [address] Jul, [facility] [address] [id number] [address] [place] [address], [place] [address] Jun, [facility] [address] [id number] [address] [place] [address], [place] [address] Jun, [facility] [address] [id number] [address] [place] [address], [place] [address] May, [facility] [address] [id number] [address] [place] [address], [place] [address] May, [facility] [address] [id number] [address] [place] [address], [place] [address] May, [facility] [address] [id number] [address] [place] [address], [place] [address] May, [facility] [address] [id number] [address] [place] [address], [place] [address] May, [facility] [address] [id number] [address] [place] [address], [place] [address] 28 Apr, 2011 [facility] [address] [id number] [address] [place] [address], [place] [address] Apr, [facility] [address] [id number] [address] [place] [address] 10 Apr, 2011 [facility] [address] [id number] [address] [place] [address] Jan, [facility] [address] [id number] [address] [place] [address] Dec, [facility] [address] [id number] [address] [place] [address] October, [facility] [address] [id number] [address] [place] [address] Jun, [facility] [address] [id number] [address] [place] [address] Apr, [facility] [address] [id number] [address] [place] [address] Apr, [facility] [address] [id number] [address] [place] [address] Apr, [facility] [address] [id number] [address] [place] [address] Jun, IMMUNIZATIONS No Known Immunizations SOCIAL HISTORY Never Assessed REASON FOR VISIT PLAN OF CARE VITAL SIGNS Height 69 in 2013-02-18 Weight 141 lbs 2013-02-18 Temperature 98.2 degrees Fahrenheit 2013-02-18 Heart Rate 88 bpm 2013-02-18 Respiratory Rate 20 2013-02-18 Blood pressure systolic 150 mmHg 2013-02-18 Blood pressure diastolic 108 mmHg 2013-02-18 MEDICATIONS Unknown Medications RESULTS No Results PROCEDURES No Known procedures INSTRUCTIONS MEDICATIONS ADMINISTERED No Known Medications MEDICAL (GENERAL) HISTORY Type Description Date Medical History Psychiatric disorder Medical History Hard of hearing Surgical History Neofibrous tumor Surgical History back injection Surgical History SCS inserted 02/22/16 Hospitalization History Intestinal blockage Hospitalization History past psychiatric hospitalizations x2 Hospitalization History [facility]
--- OUTSIDE RECORDS SUMMARY | 2020-01-25 13:25 | XMS REPORT ---
Author Author Ana Brannon [facility] Address [address] [place] [address] Care Team Providers Care Safety Sitter Name Role Phone Clovis ANEUDY Unavailable PROBLEMS Type Condition ICD9-CM Code KOV33-HM Code Onset Dates Condition S tatus SNOMED Code Problem Chronic hepatitis C without hepatic coma B18.2 Active 604541604 Problem Cannabis abuse F12.10 Active 28644 009 Problem Bipolar 1 disorder F31.9 Active 3 14933537 Problem Attention deficit hyperactivity disorder (ADHD), combi luciano type F90.2 Active 40516733 Problem Attention deficit R41.840 Active 76 782613 Problem Hot flashes due to menopause N95.1 A ctive 343129386 Problem H/O laminectomy Z98.89 Active 1616 93142 Problem Other chronic pain G89.29 Active 8 4836421 Problem Anxiety disorder, unspecified type F41.9 Active 180073509 Problem Bipolar disorder, in partial remission, most rec ent episode hypomanic F31.71 Active 585271278 ALLERGIES No Information ENCOUNTERS Encounter Location Date Diagnosis [facility] [address] [id number] [address] [place] [id number] Oct, [facility] [address] [facility] [id number] [address] [place] [phone] Oct, [facility] [address] [facility] [id number] [address] [place] [phone] Aug, [facility] [address] [facility] [id number] [address] [place] [address] Jul, [facility] [address] [facility] [id number] [address] [place] [id number] Jul, [facility] [address] [facility] [id number] [address] [place] [phone] Apr, [facility] [address] [id number] [address] [place] [address] Mar, Hot flashes due to menopause N95.1 ; Anxiety disorder, unspecified type F41.9 ; Low back pain M54.5 and Encounter for immunization Z23 [facility] [address] [id number] [address] [place] [address] Dec, Other chronic pain G89.29 an d Low back pain M54.5 [facility] [address] [id number] [address] [place] [address] October, [facility] [address] [id number] [address] [place] [address] October, [facility] [address] [id number] [address] [place] [address] October, [facility] [address] [facility] [id number] [address] [place] [address] October, Other chronic pain G89.29 an d Chronic hepatitis C without hepatic coma B18.2 [facility] [address] [id number] [address] [place] [address] Aug, Bipolar disorder, in partial remission, most recent episode hypomanic F31.71 ; Attention deficit hyperactivity disorder (ADHD), combined type F90.2 and Anxiety disorder, unspecified type F41.9 [facility] [address] [id number] [address] [place] [address] Aug, [facility] [address] [id number] [address] [place] [address] Aug, Bipolar disorder, in partial remission, most recent episode hypomanic F31.71 [facility] [address] [facility] [id number] [address] [place] [address] Aug, [facility] [address] [facility] [id number] [address] [place] [address] Aug, Bipolar disorder, in partial remission, most recent episode hypomanic F31.71 [facility] [address] [id number] [address] [place] [address] Aug, Bipolar disorder, in partial remission, most recent episode hypomanic F31.71 ; Attention deficit hyperactivity disorder (ADHD), combined type F90.2 and Anxiety disorder, unspecified type F41.9 [facility] [address] [id number] [address] [place] [address] Aug, Low back pain M54.5 and Pain in left wrist M25.532 [facility] [address] [id number] [address] [place] [address] Aug, [facility] [address] [id number] [address] [place] [address] Jun, [facility] [address] [id number] [address] [place] [address] Apr, Bipolar disorder, in partial remission, most recent episode hypomanic F31.71 [facility] [address] [id number] [address] [place] [address] Apr, [facility] [address] [id number] [address] [place] [address] Apr, Bipolar disorder, in partial remission, most recent episode hypomanic F31.71 ; Attention deficit hyperactivity disorder (ADHD), combined type F90.2 ; Anxiety disorder, unspecified type F41.9 and Other detention (current) drug therapy Z79.899 [facility] [address] [id number] [address] [place] [address] Apr, Bipolar disorder, in partial remission, most recent episode hypomanic F31.71 [facility] [address] [id number] [address] [place] [address] Apr, Bipolar disorder, in partial remission, most recent episode hypomanic F31.71 [facility] [address] [id number] [address] [place] [address] Mar, [facility] [address] [id number] [address] [place] [address] Mar, Bipolar disorder, in partial remission, most recent episode hypomanic F31.71 ; Encounter for immunization Z23 and Low back pain M54.5 [facility] [address] [id number] [address] [place] [phone] 17 Mar, 2018 Bipolar disorder, in partial remission, most recent episode hypomanic F31.71 [facility] [address] [id number] [address] [place] [address] Mar, Bipolar disorder, in partial remission, most recent episode hypomanic F31.71 [facility] [address] [id number] [address] [place] [address] Jan, Bipolar disorder, in partial remission, most recent episode hypomanic F31.71 [facility] [address] [id number] [address] [place] [address] Jan, Bipolar disorder, in partial remission, most recent episode hypomanic F31.71 [facility] [address] [id number] [address] [place] [address] Dec, Bipolar disorder, in partial remission, most recent episode hypomanic F31.71 [facility] [address] [facility] [id number] [address] [place] [address] Dec, Bipolar disorder, in partial remission, most recent episode hypomanic F31.71 ; Attention deficit hyperactivity disorder (ADHD), combined type F90.2 ; Anxiety disorder, unspecified type F41.9 and Other detention (current) drug therapy Z79.899 [facility] [address] [id number] [address] [place] [id number] Dec, Bipolar disorder, in partial remission, most recent episode hypomanic F31.71 [facility] [address] [facility] [id number] [address] [place] [address] Dec, Bipolar disorder, in partial remission, most recent episode hypomanic F31.71 [facility] [address] [facility] [id number] [address] [place] [address] October, Bipolar disorder, in partial remission, most recent episode hypomanic F31.71 [facility] [address] [id number] [address] [place] [address] October, [facility] [address] [id number] [address] [place] [address] October, [facility] [address] [id number] [address] [place] [address] Oct, Bipolar disorder, in partial remission, most recent episode hypomanic F31.71 ; Attention deficit hyperactivity disorder (ADHD), combined type F90.2 ; Anxiety disorder, unspecified type F41.9 and Encounter for drug screening Z02.83 [facility] [address] [id number] [address] [place] [address] Oct, Bipolar disorder, in partial remission, most recent episode hypomanic F31.71 [facility] [address] [id number] [address] [place] [address] Oct, Bipolar disorder, in partial remission, most recent episode hypomanic F31.71 [facility] [address] [facility] [id number] [address] [place] [address] Aug, Bipolar disorder, in partial remission, most recent episode hypomanic F31.71 [facility] [address] [facility] [id number] [address] [place] [address] Aug, Bipolar disorder, in partial remission, most recent episode hypomanic F31.71 [facility] [address] [id number] [address] [place] [address] Aug, Bipolar disorder, in partial remission, most recent episode hypomanic F31.71 [facility] [address] [facility] [id number] [address] [place] [id number] Jul, Bipolar disorder, in partial remission, most recent episode hypomanic F31.71 ; Attention deficit hyperactivity disorder (ADHD), combined type F90.2 and Anxiety disorder, unspecified type F41.9 [facility] [address] [id number] [address] [place] [address] Jul, Bipolar disorder, in partial remission, most recent episode hypomanic F31.71 [facility] [address] [id number] [address] [place] [address] Jun, Bipolar disorder, in partial remission, most recent episode hypomanic F31.71 [facility] [address] [id number] [address] [place] [address] May, Bipolar disorder, in partial remission, most recent episode hypomanic F31.71 [facility] [address] [id number] [address] [place] [address] May, Bipolar disorder, in partial remission, most recent episode hypomanic F31.71 [facility] [address] [facility] [id number] [address] [place] [address] Apr, [facility] [address] [facility] [id number] [address] [place] [address] Apr, Bipolar disorder, in partial remission, most recent episode hypomanic F31.71 ; Attention deficit hyperactivity disorder (ADHD), combined type F90.2 ; Anxiety disorder, unspecified type F41.9 and Cannabis abuse F12.10 [facility] [address] [facility] [id number] [address] [place] [address] Apr, Attention deficit hyperactiv ity disorder (ADHD), combined type F90.2 [facility] [address] [id number] [address] [place] [address] Mar, Attention deficit hyperactiv ity disorder (ADHD), combined type F90.2 [facility] [address] [id number] [address] [place] [phone] 14 Mar, 2017 Anxiety disorder, unspecifie d type F41.9 [facility] [address] [facility] [id number] [address] [place] [address] Jan, Attention deficit hyperactiv ity disorder (ADHD), combined type F90.2 [facility] [address] [place] [id number] [address] [place] [address] Jan, Anxiety disorder, unspecifie d type F41.9 [facility] [address] [place] [id number] [address] [place] [address] Jan, Other chronic pain G89.29 ; Chronic hepatitis C without hepatic coma B18.2 and Bipolar 1 disorder F31.9 [facility] [address] [place] [id number] [address] [place] [address] Dec, Attention deficit hyperactiv ity disorder (ADHD), combined type F90.2 [facility] [address] [place] [id number] [address] [place] [address] Dec, Bipolar disorder, in partial remission, most recent episode hypomanic F31.71 ; Attention deficit hyperactivity disorder (ADHD), combined type F90.2 and Anxiety disorder, unspecified type F41.9 [place] [address] [place] [id number] [place] [address] Dec, Bipolar disorder, in partial remission, most recent episode hypomanic F31.71 ; Attention deficit hyperactivity disorder (ADHD), combined type F90.2 and Anxiety disorder, unspecified type F41.9 [place] [address] [place] [id number] [place] [address] Dec, Bipolar 1 disorder F31.9 and Attention deficit R41.840 [place] [address] [place] [id number] [address] [place] [address] Oct, Other chronic pain G89.29 ; Alopecia L65.9 and Screening, lipid Z13.220 [facility] [address] [place] [id number] [address] [place] [address] Oct, [place] [address] [place] [id number] [place] [address] Aug, [place] [id number] [place] [id number] [place] [phone] Aug, Eustachian tube dysfunction, right H69.81 ; Vertigo R42 and Other chronic pain G89.29 [facility] [address] [id number] [address] [place] [address] Aug, [facility] [address] [id number] [address] [place] [address] Jun, [facility] [address] [id number] [address] [place] [address] Jun, Low back pain M54.5 and Othe r chronic pain G89.29 [facility] [address] [id number] [address] [place] [id number] Jun, [facility] [address] [id number] [address] [place] [address] May, [facility] [address] [id number] [address] [place] [address] Jan, [facility] [address] [id number] [address] [place] [address] Dec, [facility] [address] [id number] [address] [place] [address] Dec, [facility] [address] [id number] [address] [place] [address] Jun, [facility] [address] [facility] [id number] [address] [place] [address] Apr, Eustachian tube dysfunction, unspecified laterality H69.80 ; Hot flashes N95.1 and Encounter for immunization Z23 [facility] [address] [id number] [address] [place] [address] Jan, [facility] [address] [id number] [address] [place] [address] Jan, [facility] [address] [id number] [address] [place] [address] Jan, [facility] [address] [id number] [address] [place] [address] Jan, [facility] [address] [id number] [address] [place] [address] Jan, Encounter to establish care V65.8 ; Bipolar 1 disorder 296.7 ; Abdominal pain 789.00 ; Constipation 564.00 ; Hard of hearing 389.9 and Drug abuse 305.90 [facility] [address] [id number] [address] [place] [address] Dec, [facility] [address] [id number] [address] [place] [phone] October, [facility] [address] [id number] [address] [place] [address] October, [facility] [address] [id number] [address] [place] [address] Oct, [facility] [address] [id number] [address] [place] [address] Oct, [facility] [address] [id number] [address] [place] [address] Oct, [facility] [address] [id number] [address] [place] [phone] Aug, [facility] [address] [id number] [address] [place] [address] Aug, [facility] [address] [id number] [address] [place] [address] Aug, [facility] [address] [id number] [address] [place] [address] Aug, [facility] [address] [id number] [address] [place] [address] Aug, [facility] [address] [id number] [address] [place] [address] Aug, [facility] [address] [id number] [address] [place] [id number] Aug, [facility] [address] [id number] [address] [place] [address], [place] [address] Aug, 2014 [facility] [address] [id number] [address] [place] [address], [place] [address] Aug, 2014 [facility] [address] [id number] [address] [place] [address], [place] [address] Aug, 2014 [facility] [address] [id number] [address] [place] [address], [place] [address] Aug, 2014 [facility] [address] [id number] [address] [place] [address], [place] [address] Aug, 2014 [facility] [address] [id number] [address] [place] [address], [place] [address] Aug, 2014 [facility] [address] [id number] [address] [place] [address], [place] [address] Aug, 2014 [facility] [address] [id number] [address] [place] [address], [place] [address] Aug, [facility] [address] [id number] [address] [place] [address], [place] [address] Jul, [facility] [address] [id number] [address] [place] [address], [place] [address] Jul, [facility] [address] [id number] [address] [place] [address], [place] [address] Jul, [facility] [address] [id number] [address] [place] [address], [place] [address] Jul, [facility] [address] [id number] [address] [place] [address], [place] [address] Jul, [facility] [address] [id number] [address] [place] [address], [place] [address] Jul, [facility] [address] [id number] [address] [place] [address], [place] [address] Jul, [facility] [address] [id number] [address] [place] [address], [place] [address] Jul, [facility] [address] [id number] [address] [place] [address], [place] [address] Jun, [facility] [address] [id number] [address] [place] [address], [place] [address] Jun, [facility] [address] [id number] [address] [place] [address], [place] [address] Jun, [facility] [address] [id number] [address] [place] [address], [place] [address] Jun, [facility] [address] [id number] [address] [place] [address], [place] [address] Jun, [facility] [address] [id number] [address] [place] [address], [place] [address] Jun, [facility] [address] [id number] [address] [place] [address], [place] [address] Jun, [facility] [address] [id number] [address] [place] [address], [place] [address] Jun, [facility] [address] [id number] [address] [place] [address], [place] [address] Jun, [facility] [address] [id number] [address] [place] [address], [place] [address] Jun, [facility] [address] [id number] [address] [place] [address], [place] [address] Jun, [facility] [address] [id number] [address] [place] [address], [place] [address] May, [facility] [address] [id number] [address] [place] [address], [place] [address] May, [facility] [address] [id number] [address] [place] [address], [place] [address] May, [facility] [address] [id number] [address] [place] [address], [place] [address] May, [facility] [address] [id number] [address] [place] [address], [place] [address] May, [facility] [address] [id number] [address] [place] [address], [place] [id number] May, [facility] [address] [id number] [address] [place] [address], [place] [id number] May, [facility] [address] [id number] [address] [place] [address], [place] [id number] Apr, [facility] [address] [id number] [address] [place] [address], [place] [id number] Apr, [facility] [address] [id number] [address] [place] [address], [place] [id number] Apr, [facility] [address] [id number] [address] [place] [address], [place] [id number] Apr, [facility] [address] [id number] [address] [place] [address], [place] [id number] Apr, [facility] [address] [id number] [address] [place] [address], [place] [id number] Apr, [facility] [address] [id number] [address] [place] [address], [place] [id number] Mar, [facility] [address] [id number] [address] [place] [address], [place] [id number] 29 Mar, 2014 [facility] [address] [id number] [address] [place] [address], [place] [id number] Mar, [facility] [address] [id number] [address] [place] [address], [place] [id number] Mar, [facility] [address] [id number] [address] [place] [address], [place] [id number] Mar, [facility] [address] [id number] [address] [place] [address], [place] [address] Mar, [facility] [address] [id number] [address] [place] [address], [place] [address] Jan, [facility] [address] [id number] [address] [place] [address], [place] [address] Jan, [facility] [address] [id number] [address] [place] [address], [place] [id number] Jan, [facility] [address] [id number] [address] [place] [address], [place] [address] Jan, [facility] [address] [id number] [address] [place] [address], [place] [id number] Dec, [facility] [address] [id number] [address] [place] [address], [place] [id number] Dec, [facility] [address] [id number] [address] [place] [address], [place] [id number] Dec, [facility] [address] [id number] [address] [place] [address], [place] [address] Dec, [facility] [address] [id number] [address] [place] [address], [place] [address] Dec, [facility] [address] [id number] [address] [place] [address], [place] [address] Dec, [facility] [address] [id number] [address] [place] [address], [place] [address] Dec, [facility] [address] [id number] [address] [place] [address], [place] [address] Dec, [facility] [address] [id number] [address] [place] [address], [place] [address] Dec, [facility] [address] [id number] [address] [place] [address], [place] [address] Dec, [facility] [address] [id number] [address] [place] [address], [place] [address] Dec, [facility] [address] [id number] [address] [place] [address], [place] [address] Dec, [facility] [address] [id number] [address] [place] [address], [place] [address] October, [facility] [address] [id number] [address] [place] [address], [place] [address] October, [facility] [address] [id number] [address] [place] [address], [place] [address] October, [facility] [address] [id number] [address] [place] [address], [place] [address] October, [facility] [address] [id number] [address] [place] [address], [place] [address] October, [facility] [address] [id number] [address] [place] [address], [place] [address] October, [facility] [address] [id number] [address] [place] [address], [place] [address] Oct, [facility] [address] [id number] [address] [place] [address], [place] [address] Oct, [facility] [address] [id number] [address] [place] [address], [place] [address] Oct, [facility] [address] [id number] [address] [place] [address], [place] [address] Oct, [facility] [address] [id number] [address] [place] [address], [place] [address] Oct, [facility] [address] [id number] [address] [place] [address], [place] [address] Oct, [facility] [address] [id number] [address] [place] [address], [place] [address] Oct, [facility] [address] [id number] [address] [place] [address], [place] [address] Oct, [facility] [address] [id number] [address] [place] [address], [place] [address] Oct, [facility] [address] [id number] [address] [place] [address], [place] [address] Oct, [facility] [address] [id number] [facility] [address] 08 Oct, 2013 [facility] [address] [id number] [facility] [place] [address] 08 Oct, 2013 [facility] [address] [id number] [facility] [place] [address] 15 Aug, 2013 [facility] [address] [id number] [address] [place] [address], [place] [address] 15 Aug, 2013 [facility] [address] [id number] [address] [place] [address], [place] [address] Aug, [facility] [address] [id number] [address] [place] [address], [place] [address] Aug, [facility] [address] [id number] [address] [place] [address], [place] [address] Aug, [facility] [address] [id number] [address] [place] [address], [place] [address] Aug, [facility] [address] [id number] [address] [place] [address], [place] [address] Aug, [facility] [address] [id number] [address] [place] [address], [place] [address] Aug, [facility] [address] [id number] [address] [place] [address], [place] [address] Aug, [facility] [address] [id number] [address] [place] [address], [place] [address] Aug, [facility] [address] [id number] [address] [place] [address], [place] [address] Aug, [facility] [address] [id number] [address] [place] [address], [place] [address] Aug, [facility] [address] [id number] [address] [place] [address], [place] [address] Aug, [facility] [address] [id number] [address] [place] [address], [place] [address] 20 Aug, 2013 [facility] [address] [id number] [address] [place] [address], [place] [address] 14 Aug, 2013 [facility] [address] [id number] [address] [place] [address], [place] [address] 14 Aug, 2013 [facility] [address] [id number] [address] [place] [address], [place] [address] 14 Aug, 2013 [facility] [address] [id number] [address] [place] [address], [place] [address] 14 Aug, 2013 [facility] [address] [id number] [address] [place] [address], [place] [address] 07 Aug, 2013 [facility] [address] [id number] [address] [place] [address], [place] [address] 07 Aug, 2013 [facility] [address] [id number] [address] [place] [address], [place] [address] 06 Aug, 2013 [facility] [address] [id number] [address] [place] [address], [place] [address] 06 Aug, 2013 [facility] [address] [id number] [address] [place] [address], [place] [address] 04 Aug, 2013 [facility] [address] [id number] [address] [place] [address], [place] [address] 04 Aug, 2013 [facility] [address] [id number] [address] [place] [address], [place] [address] Aug, [facility] [address] [id number] [address] [place] [address], [place] [address] Jul, [facility] [address] [id number] [address] [place] [address], [place] [address] Jul, [facility] [address] [id number] [address] [place] [address], [place] [address] Jul, [facility] [address] [id number] [address] [place] [address], [place] [address] Jul, [facility] [address] [id number] [address] [place] [address], [place] [address] Jul, [facility] [address] [id number] [address] [place] [address], [place] [address] Jul, [facility] [address] [id number] [address] [place] [address], [place] [address] Jul, [facility] [address] [id number] [address] [place] [address], [place] [address] Jul, [facility] [address] [id number] [address] [place] [address], [place] [address] Jul, [facility] [address] [id number] [address] [place] [address], [place] [address] Jul, [facility] [address] [id number] [address] [place] [address], [place] [address] Jul, [facility] [address] [id number] [address] [place] [address], [place] [address] Jul, [facility] [address] [id number] [address] [place] [address], [place] [address] Jul, [facility] [address] [id number] [address] [place] [address], [place] [address] Jul, [facility] [address] [id number] [address] [place] [address], [place] [address] Jul, [facility] [address] [id number] [address] [place] [address], [place] [address] Jul, [facility] [address] [id number] [address] [place] [address], [place] [address] Jul, [facility] [address] [id number] [address] [place] [address], [place] [address] Jul, [facility] [address] [id number] [address] [place] [address], [place] [address] Jul, [facility] [address] [id number] [address] [place] [address], [place] [address] Jul, [facility] [address] [id number] [address] [place] [address], [place] [address] Jun, [facility] [address] [id number] [address] [place] [address], [place] [address] Jun, [facility] [address] [id number] [address] [place] [address], [place] [address] Jun, [facility] [address] [id number] [address] [place] [address], [place] [address] Jun, [facility] [address] [id number] [address] [place] [address], [place] [address] Jun, [facility] [address] [id number] [address] [place] [address], [place] [address] Jun, [facility] [address] [id number] [address] [place] [address], [place] [address] Jun, [facility] [address] [id number] [address] [place] [address], [place] [address] Jun, [facility] [address] [id number] [address] [place] [address], [place] [address] Jun, [facility] [address] [id number] [address] [place] [address], [place] [address] Jun, [facility] [address] [id number] [address] [place] [address], [place] [address] Jun, [facility] [address] [id number] [address] [place] [address], [place] [address] Jun, [facility] [address] [id number] [address] [place] [address], [place] [address] Jun, [facility] [address] [id number] [address] [place] [address], [place] [id number] Jun, [facility] [address] [id number] [address] [place] [address], [place] [address] Jun, [facility] [address] [id number] [address] [place] [address], [place] [address] 18 Jun, 2013 [facility] [address] [id number] [address] [place] [address], [place] [address] 18 Jun, 2013 [facility] [address] [id number] [address] [place] [address], [place] [address] 17 Jun, 2013 [facility] [address] [id number] [address] [place] [address], [place] [address] 17 Jun, 2013 [facility] [address] [id number] [address] [place] [address], [place] [address] 13 Jun, 2013 [facility] [address] [id number] [address] [place] [address], [place] [address] Jun, [facility] [address] [id number] [address] [place] [address], [place] [address] Jun, [facility] [address] [id number] [address] [place] [address], [place] [address] Jun, [facility] [address] [id number] [address] [place] [address], [place] [address] 05 Jun, 2013 [facility] [address] [id number] [address] [place] [address], [place] [address] 05 Jun, 2013 [facility] [address] [id number] [address] [place] [address], [place] [address] 04 Jun, 2013 [facility] [address] [id number] [address] [place] [address], [place] [address] 04 Jun, 2013 [facility] [address] [id number] [address] [place] [address], [place] [address] 17 May, 2013 [facility] [address] [id number] [address] [place] [address], [place] [address] 17 May, 2013 [facility] [address] [id number] [address] [place] [address], [place] [address] May, [facility] [address] [id number] [address] [place] [address] [address] May, [facility] [address] [id number] [address] [place] [address], [place] [address] May, [facility] [address] [id number] [address] [place] [address], [place] [address] May, [facility] [address] [id number] [address] [place] [address], [place] [address] Apr, [facility] [address] [id number] [address] [place] [address], [place] [address] Apr, [facility] [address] [id number] [address] [place] [address], [place] [address] Apr, [facility] [address] [id number] [address] [place] [address], [place] [address] Apr, [facility] [address] [id number] [address] [place] [address], [place] [address] Apr, [facility] [address] [id number] [address] [place] [address], [place] [address] Apr, [facility] [address] [id number] [address] [place] [address], [place] [address] Apr, [facility] [address] [id number] [address] [place] [address] Apr, [facility] [address] [id number] [address] [place] [address] 26 Mar, 2012 [facility] [address] [id number] [address] [place] [address] 24 Sep, 2012 [facility] [address] [id number] [address] [place] [address], [place] [address] 17 Sep2012 [facility] [address] [id number] [address] [place] [address] 17 Sep, 2012 [facility] [address] [id number] [address] [place] [address], [place] [address] 11 Mar, 2013 [facility] [address] [id number] [facility] [address] 10 Mar, 2013 [facility] [address] [id number] [address] [place] [address], [place] [address] 05 Mar, 2013 [facility] [address] [id number] [address] [place] [address], [place] [address] 04 Mar, 2013 [facility] [address] [id number] [address] [place] [address], [place] [address] 20 Jan, 2013 [facility] [address] [id number] [address] [place] [address], [place] [id number] Jan, [facility] [address] [id number] [address] [place] [address], [place] [address] 14 Jan, 2013 [facility] [address] [id number] [address] [place] [address], [place] [address] Jan, [facility] [address] [id number] [address] [place] [address], [place] [address] Jan, [facility] [address] [id number] [address] [place] [address], [place] [address] Jan, [facility] [address] [id number] [address] [place] [address], [place] [address] Dec, [facility] [address] [id number] [address] [place] [address], [place] [address] Dec, [facility] [address] [id number] [address] [place] [address], [place] [address] Dec, [facility] [address] [id number] [address] [place] [address], [place] [address] Dec, [facility] [address] [id number] [address] [place] [address], [place] [address] 18 Dec, 2012 [facility] [address] [id number] [address] [place] [address], [place] [address] 17 Dec, 2012 [facility] [address] [id number] [address] [place] [address], [place] [address] 16 Dec, 2012 [facility] [address] [id number] [address] [place] [address], [place] [address] 16 Dec, 2012 [facility] [address] [id number] [address] [place] [address], [place] [id number] 15 Dec, 2012 [facility] [address] [id number] [address] [place] [address], [place] [address] 10 Dec, 2012 [facility] [address] [id number] [address] [place] [address], [place] [address] Dec, [facility] [address] [id number] [address] [place] [address], [place] [address] Dec, [facility] [address] [id number] [address] [place] [address], [place] [address] Dec, [facility] [address] [id number] [address] [place] [address], [place] [address] Dec, [facility] [address] [id number] [address] [place] [address], [place] [address] Dec, [facility] [address] [id number] [address] [place] [address], [place] [address] Dec, [facility] [address] [id number] [address] [place] [address], [place] [address] October, [facility] [address] [id number] [address] [place] [address], [place] [id number] October, [facility] [address] [id number] [address] [place] [address], [place] [address] October, [facility] [address] [id number] [address] [place] [address], [place] [address] October, [facility] [address] [id number] [address] [place] [address], [place] [id number] October, [facility] [address] [id number] [address] [place] [address], [place] [address] October, [facility] [address] [id number] [address] [place] [address], [place] [address] October, [facility] [address] [id number] [address] [place] [address], [place] [address] Oct, [facility] [address] [id number] [address] [place] [address], [place] [address] Oct, [facility] [address] [id number] [address] [place] [address], [place] [id number] Oct, [facility] [address] [id number] [address] [place] [address], [place] [address] Oct, [facility] [address] [id number] [address] [place] [address], [place] [id number] Oct, [facility] [address] [id number] [address] [place] [address], [place] [address] Oct, [facility] [address] [id number] [address] [place] [address], [place] [address] Oct, [facility] [address] [id number] [address] [place] [address], [place] [address] 15 Oct, 2012 [facility] [address] [id number] [address] [place] [address], [place] [address] Oct, [facility] [address] [id number] [address] [place] [address], [place] [address] Oct, [facility] [address] [id number] [address] [place] [address], [place] [address] Oct, [facility] [address] [id number] [address] [place] [address], [place] [address] Oct, [facility] [address] [id number] [address] [place] [address], [place] [address] Aug, [facility] [address] [id number] [address] [place] [address], [place] [address] Aug, [facility] [address] [id number] [address] [place] [address], [place] [id number] Aug, [facility] [address] [id number] [address] [place] [address], [place] [id number] 06 Aug, 2012 [facility] [address] [id number] [address] [place] [address], [place] [id number] 05 Aug, 2012 [facility] [address] [id number] [address] [place] [address], [place] [address] 05 Aug, 2012 [facility] [address] [id number] [address] [place] [address], [place] [id number] 20 Aug, 2012 [facility] [address] [id number] [address] [place] [address], [place] [address] 14 Aug, 2012 [facility] [address] [id number] [address] [place] [address], [place] [address] 12 Aug, 2012 [facility] [address] [id number] [address] [place] [address], [place] [address] Aug, [facility] [address] [id number] [address] [place] [address], [place] [address] 29 Jul, 2012 [facility] [address] [id number] [address] [place] [address], [place] [id number] 15 Jul, 2012 [facility] [address] [id number] [address] [place] [address], [place] [address] 08 Jul, 2012 [facility] [address] [id number] [address] [place] [address], [place] [address] 20 Jun, 2012 [facility] [address] [id number] [address] [place] [address], [place] [address] 18 Jun, 2012 [facility] [address] [id number] [address] [place] [address], [place] [id number] 18 Jun, 2012 [facility] [address] [id number] [address] [place] [address], [place] [id number] 18 Jun, 2012 [facility] [address] [id number] [address] [place] [address], [place] [id number] 18 Jun, 2012 [facility] [address] [id number] [address] [place] [address] [address] 14 Jun, 2012 [facility] [address] [id number] [address] [place] [address], [place] [address] 14 Jun, 2012 [facility] [address] [id number] [address] [place] [address], [place] [address] 13 Jun, 2012 [facility] [address] [id number] [address] [place] [address], [place] [address] 13 Jun, 2012 [facility] [address] [id number] [address] [place] [address], [place] [id number] 11 Jun, 2012 [facility] [address] [id number] [address] [place] [address], [place] [address] 11 Jun, 2012 [facility] [address] [id number] [address] [place] [address], [place] [id number] 11 Jun, 2012 [facility] [address] [id number] [address] [place] [address], [place] [address] Jun, [facility] [address] [id number] [address] [place] [address], [place] [address] 07 Jun, 2012 [facility] [address] [id number] [address] [place] [address], [place] [address] 07 Jun, 2012 [facility] [address] [id number] [address] [place] [address], [place] [id number] 06 Jun, 2012 [facility] [address] [id number] [address] [place] [address], [place] [id number] Jun, [facility] [address] [id number] [address] [place] [address], [place] [address] Jun, [facility] [address] [id number] [address] [place] [address], [place] [address] Jun, [facility] [address] [id number] [address] [place] [address], [place] [address] 05 Jun, 2012 [facility] [address] [id number] [address] [place] [address], [place] [address] 05 Jun, 2012 [facility] [address] [id number] [address] [place] [address], [place] [address] Jun, [facility] [address] [id number] [address] [place] [address], [place] [address] Jun, [facility] [address] [id number] [address] [place] [address], [place] [address] May, [facility] [address] [id number] [address] [place] [address], [place] [address] May, [facility] [address] [id number] [address] [place] [address], [place] [address] May, [facility] [address] [id number] [address] [place] [address], [place] [address] May, [facility] [address] [id number] [address] [place] [address], [place] [address] May, [facility] [address] [id number] [address] [place] [address], [place] [address] May, [facility] [address] [id number] [address] [place] [address], [place] [address] May, [facility] [address] [id number] [address] [place] [address], [place] [address] May, [facility] [address] [id number] [address] [place] [address], [place] [address] Apr, [facility] [address] [id number] [address] [place] [address], [place] [address] 30 Apr, 2012 [facility] [address] [id number] [address] [place] [address], [place] [address] 29 Apr, 2012 [facility] [address] [id number] [address] [place] [address], [place] [address] Apr, [facility] [address] [id number] [address] [place] [address], [place] [address] Apr, [facility] [address] [id number] [address] [place] [address] Apr, [facility] [address] [id number] [address] [place] [address], [place] [address] Apr, [facility] [address] [id number] [address] [place] [address], [place] [address] Apr, [facility] [address] [id number] [address] [place] [address], [place] [address] Apr, [facility] [address] [id number] [address] [place] [address], [place] [address] Apr, [facility] [address] [id number] [address] [place] [address], [place] [address] Apr, [facility] [address] [id number] [address] [place] [address], [place] [address] Apr, [facility] [address] [id number] [address] [place] [address], [place] [id number] Mar, [facility] [address] [id number] [address] [place] [address], [place] [address] 18 Mar, 2012 [facility] [address] [id number] [address] [place] [address], [place] [address] Mar, [facility] [address] [id number] [address] [place] [id number] Mar, [facility] [address] [id number] [address] [place] [id number] Mar, [facility] [address] [id number] [address] [place] [id number] Mar, [facility] [address] [id number] [address] [place] [id number] Mar, [facility] [address] [id number] [address] [place] [id number] Jan, [facility] [address] [id number] [address] [place] [id number] Jan, [facility] [address] [id number] [address] [place] [id number] Jan, [facility] [address] [id number] [address] [place] [address], [place] [id number] Jan, [facility] [address] [id number] [address] [place] [address], [place] [address] Jan, [facility] [address] [id number] [address] [place] [address], [place] [address] Jan, [facility] [address] [id number] [address] [place] [address], [place] [address] Jan, [facility] [address] [id number] [address] [place] [address], [place] [address] Jan, [facility] [address] [id number] [address] [place] [address], [place] [address] Jan, [facility] [address] [id number] [address] [place] [address], [place] [address] Jan, [facility] [address] [id number] [address] [place] [address], [place] [address] Jan, [facility] [address] [id number] [address] [place] [address], [place] [address] Dec, [facility] [address] [id number] [address] [place] [address], [place] [address] Dec, [facility] [address] [id number] [address] [place] [address], [place] [address] Dec, [facility] [address] [id number] [address] [place] [address], [place] [address] Dec, [facility] [address] [id number] [address] [place] [address], [place] [address] Dec, [facility] [address] [id number] [address] [place] [address], [place] [address] Dec, [facility] [address] [id number] [address] [place] [address], [place] [address] Dec, [facility] [address] [id number] [facility] [place] [address] 17 Jan, 2012 [facility] [address] [id number] [address] [place] [address], [place] [address] 16 Jan, 2012 [facility] [address] [id number] [address] [place] [address], [place] [address] 13 Jan, 2012 [facility] [address] [id number] [address] [place] [address], [place] [id number] 13 Jan, 2012 [facility] [address] [id number] [address] [place] [address], [place] [id number] Dec, [facility] [address] [id number] [address] [place] [address], [place] [address] Dec, [facility] [address] [id number] [address] [place] [address], [place] [address] Dec, [facility] [address] [id number] [address] [place] [address], [place] [address] Dec, [facility] [address] [id number] [address] [place] [address], [place] [address] Dec, [facility] [address] [id number] [address] [place] [address], [place] [address] 15 Dec, 2011 [facility] [address] [id number] [address] [place] [address], [place] [address] 06 Dec, 2011 [facility] [address] [id number] [address] [place] [address], [place] [address] 05 Dec, 2011 [facility] [address] [id number] [address] [place] [address], [place] [address] October, [facility] [address] [id number] [address] [place] [address], [place] [id number] October, [facility] [address] [id number] [address] [place] [address], [place] [address] October, [facility] [address] [id number] [address] [place] [address], [place] [address] October, [facility] [address] [id number] [address] [place] [address], [place] [address] October, [facility] [address] [id number] [address] [place] [address], [place] [address] October, [facility] [address] [id number] [address] [place] [address], [place] [address] Oct, [facility] [address] [id number] [address] [place] [address], [place] [address] Oct, [facility] [address] [id number] [address] [place] [address], [place] [address] Oct, [facility] [address] [id number] [address] [place] [address], [place] [address] Oct, [facility] [address] [id number] [address] [place] [address], [place] [address] Oct, [facility] [address] [id number] [address] [place] [address], [place] [address] Oct, [facility] [address] [id number] [address] [place] [address], [place] [address] Oct, [facility] [address] [id number] [address] [place] [address], [place] [address] Aug, [facility] [address] [id number] [address] [place] [address], [place] [address] Aug, [facility] [address] [id number] [address] [place] [address], [place] [address] Aug, [facility] [address] [id number] [address] [place] [address], [place] [id number] Aug, [facility] [address] [id number] [address] [place] [address], [place] [address] Aug, [facility] [address] [id number] [address] [place] [address], [place] [address] Aug, [facility] [address] [id number] [address] [place] [address], [place] [address] Aug, [facility] [address] [id number] [address] [place] [address], [place] [address] Aug, [facility] [address] [id number] [address] [place] [address], [place] [id number] 08 Aug, 2011 [facility] [address] [id number] [address] [place] [address], [place] [address] Jul, [facility] [address] [id number] [address] [place] [address], [place] [address] Jul, [facility] [address] [id number] [address] [place] [address], [place] [address] Jul, [facility] [address] [id number] [address] [place] [address], [place] [address] Jul, [facility] [address] [id number] [address] [place] [address], [place] [address] Jun, [facility] [address] [id number] [address] [place] [address], [place] [address] Jun, [facility] [address] [id number] [address] [place] [address], [place] [address] May, [facility] [address] [id number] [address] [place] [address], [place] [address] May, [facility] [address] [id number] [address] [place] [address], [place] [address] May, [facility] [address] [id number] [address] [place] [address], [place] [address] May, [facility] [address] [id number] [address] [place] [address], [place] [address] May, [facility] [address] [id number] [address] [place] [address], [place] [address] 28 Apr, 2011 [facility] [address] [id number] [address] [place] [address], [place] [address] Apr, [facility] [address] [id number] [address] [place] [address] Apr, [facility] [address] [id number] [address] [place] [id number] Jan, [facility] [address] [id number] [address] [place] [id number] Dec, [facility] [address] [id number] [address] [place] [id number] October, [facility] [address] [id number] [address] [place] [address] Jun, [facility] [address] [id number] [address] [place] [address] Apr, [facility] [address] [id number] [address] [place] [address] Apr, [facility] [address] [id number] [address] [place] [id number] Apr, [facility] [address] [id number] [address] [place] [id number] Jun, IMMUNIZATIONS No Known Immunizations SOCIAL HISTORY [...]
--- OUTSIDE RECORDS SUMMARY | 2020-01-25 13:26 | XMS REPORT ---
Author Author Ana Iraheta Organization [facility] Address [address] [place] [address] Care Team Providers Care Laboratory Secretary Name Role Phone MELISA Iraheta Unavailable PROBLEMS Type Condition ICD9-CM Code TUA22-UI Code Onset Dates Condition S tatus SNOMED Code Problem Chronic hepatitis C without hepatic coma B18.2 Active 250412392 Problem Cannabis abuse F12.10 Active 05985 009 Problem Bipolar 1 disorder F31.9 Active 3 40704935 Problem Attention deficit hyperactivity disorder (ADHD), combi luciano type F90.2 Active 59630909 Problem Attention deficit R41.840 Active 76 768879 Problem Hot flashes due to menopause N95.1 A ctive 757161820 Problem H/O laminectomy Z98.89 Active 1616 10472 Problem Other chronic pain G89.29 Active 8 2616794 Problem Anxiety disorder, unspecified type F41.9 Active 333263195 Problem Bipolar disorder, in partial remission, most rec ent episode hypomanic F31.71 Active [id number] ALLERGIES No Information ENCOUNTERS Encounter Location Date Diagnosis [facility] [address] [id number] [place] [id number] Oct, [facility] [address] [facility] [id number] [address] [place] [phone] Oct, [facility] [address] [facility] [id number] [address] [place] [phone] Aug, [facility] [address] [facility] [id number] [address] [place] [phone] Jul, [facility] [address] [facility] [id number] [address] [place] [phone] Jul, [facility] [address] [facility] [id number] [address] [place] [address] Apr, [facility] [address] [id number] [address] [place] [phone] Mar, Hot flashes due to menopause N95.1 ; Anxiety disorder, unspecified type F41.9 ; Low back pain M54.5 and Encounter for immunization Z23 [facility] [address] [id number] [address] [place] [phone] Dec, Other chronic pain G89.29 an d Low back pain M54.5 [facility] [address] [id number] [address] [place] [phone] October, [facility] [address] [id number] [address] [place] [phone] October, [facility] [address] [id number] [address] [place] [phone] October, [facility] [address] [facility] [id number] [address] [place] [phone] October, Other chronic pain G89.29 an d Chronic hepatitis C without hepatic coma B18.2 [facility] [address] [id number] [address] [place] [address] Aug, Bipolar disorder, in partial remission, most recent episode hypomanic F31.71 ; Attention deficit hyperactivity disorder (ADHD), combined type F90.2 and Anxiety disorder, unspecified type F41.9 [facility] [address] [id number] [address] [place] [phone] Aug, [facility] [address] [id number] [address] [place] [phone] Aug, Bipolar disorder, in partial remission, most recent episode hypomanic F31.71 [facility] [address] [facility] [id number] [address] [place] [phone] Aug, [facility] [address] [facility] [id number] [address] [place] [address] Aug, Bipolar disorder, in partial remission, most recent episode hypomanic F31.71 [facility] [address] [id number] [address] [place] [address] Aug, Bipolar disorder, in partial remission, most recent episode hypomanic F31.71 ; Attention deficit hyperactivity disorder (ADHD), combined type F90.2 and Anxiety disorder, unspecified type F41.9 [facility] [address] [id number] [address] [place] [address] Aug, Low back pain M54.5 and Pain in left wrist M25.532 [facility] [address] [id number] [address] [place] [phone] Aug, [facility] [address] [id number] [address] [place] [address] Jun, [facility] [address] [id number] [address] [place] [address] Apr, Bipolar disorder, in partial remission, most recent episode hypomanic F31.71 [facility] [address] [id number] [address] [place] [address] Apr, [facility] [address] [id number] [address] [place] [address] Apr, Bipolar disorder, in partial remission, most recent episode hypomanic F31.71 ; Attention deficit hyperactivity disorder (ADHD), combined type F90.2 ; Anxiety disorder, unspecified type F41.9 and Other terminal gauger (current) drug therapy Z79.899 [facility] [address] [id number] [address] [place] [address] Apr, Bipolar disorder, in partial remission, most recent episode hypomanic F31.71 [facility] [address] [id number] [address] [place] [address] Apr, Bipolar disorder, in partial remission, most recent episode hypomanic F31.71 [facility] [address] [id number] [address] [place] [address] Mar, [facility] [address] [facility] [id number] [address] [place] [address] Mar, Bipolar disorder, in partial remission, most recent episode hypomanic F31.71 ; Encounter for immunization Z23 and Low back pain M54.5 [facility] [address] [id number] [address] [place] [address] Mar, Bipolar disorder, in partial remission, most recent episode hypomanic F31.71 [facility] [address] [id number] [address] [place] [address] Mar, Bipolar disorder, in partial remission, most recent episode hypomanic F31.71 [facility] [address] [id number] [address] [place] [address] Jan, Bipolar disorder, in partial remission, most recent episode hypomanic F31.71 [facility] [address] [facility] [id number] [address] [place] [address] Jan, Bipolar disorder, in partial remission, most recent episode hypomanic F31.71 [facility] [address] [facility] [id number] [address] [place] [address] Dec, Bipolar disorder, in partial remission, most recent episode hypomanic F31.71 [facility] [address] [facility] [id number] [address] [place] [address] Dec, Bipolar disorder, in partial remission, most recent episode hypomanic F31.71 ; Attention deficit hyperactivity disorder (ADHD), combined type F90.2 ; Anxiety disorder, unspecified type F41.9 and Other usp (current) drug therapy Z79.899 [facility] [address] [id number] [address] [place] [address] Dec, Bipolar disorder, in partial remission, most recent episode hypomanic F31.71 [facility] [address] [facility] [id number] [address] [place] [address] Dec, Bipolar disorder, in partial remission, most recent episode hypomanic F31.71 [facility] [address] [facility] [id number] [address] [place] [phone] October, Bipolar disorder, in partial remission, most recent episode hypomanic F31.71 [facility] [address] [id number] [address] [place] [address] October, [facility] [address] [id number] [address] [place] [address] October, [facility] [address] [id number] [address] [place] [address] Oct, Bipolar disorder, in partial remission, most recent episode hypomanic F31.71 ; Attention deficit hyperactivity disorder (ADHD), combined type F90.2 ; Anxiety disorder, unspecified type F41.9 and Encounter for drug screening Z02.83 [facility] [address] [id number] [address] [place] [address] Oct, Bipolar disorder, in partial remission, most recent episode hypomanic F31.71 [facility] [address] [facility] [id number] [address] [place] [address] Oct, Bipolar disorder, in partial remission, most recent episode hypomanic F31.71 [facility] [address] [facility] [id number] [address] [place] [address] Aug, Bipolar disorder, in partial remission, most recent episode hypomanic F31.71 [facility] [address] [facility] [id number] [address] [place] [phone] Aug, Bipolar disorder, in partial remission, most recent episode hypomanic F31.71 [facility] [address] [id number] [address] [place] [phone] Aug, Bipolar disorder, in partial remission, most recent episode hypomanic F31.71 [facility] [address] [facility] [id number] [address] [place] [phone] Jul, Bipolar disorder, in partial remission, most recent episode hypomanic F31.71 ; Attention deficit hyperactivity disorder (ADHD), combined type F90.2 and Anxiety disorder, unspecified type F41.9 [facility] [address] [facility] [id number] [address] [place] [address] Jul, Bipolar disorder, in partial remission, most recent episode hypomanic F31.71 [facility] [address] [id number] [address] [place] [address] Jun, Bipolar disorder, in partial remission, most recent episode hypomanic F31.71 [facility] [address] [id number] [address] [place] [address] May, Bipolar disorder, in partial remission, most recent episode hypomanic F31.71 [facility] [address] [facility] [id number] [address] [place] [address] May, Bipolar disorder, in partial remission, most recent episode hypomanic F31.71 [facility] [address] [facility] [id number] [address] [place] [address] Apr, [facility] [address] [facility] [id number] [address] [place] [address] Apr, Bipolar disorder, in partial remission, most recent episode hypomanic F31.71 ; Attention deficit hyperactivity disorder (ADHD), combined type F90.2 ; Anxiety disorder, unspecified type F41.9 and Cannabis abuse F12.10 [facility] [address] [facility] [id number] [address] [place] [phone] Apr, Attention deficit hyperactiv ity disorder (ADHD), combined type F90.2 [facility] [address] [facility] [id number] [address] [place] [phone] Mar, Attention deficit hyperactiv ity disorder (ADHD), combined type F90.2 [facility] [address] [facility] [id number] [address] [place] [phone] 14 Mar, 2017 Anxiety disorder, unspecifie d type F41.9 [facility] [address] [facility] [id number] [address] [place] [phone] Jan, Attention deficit hyperactiv ity disorder (ADHD), combined type F90.2 [facility] [address] [facility] [id number] [address] [place] [phone] Jan, Anxiety disorder, unspecifie d type F41.9 [facility] [address] [facility] [id number] [address] [place] [address] Jan, Other chronic pain G89.29 ; Chronic hepatitis C without hepatic coma B18.2 and Bipolar 1 disorder F31.9 [facility] [address] [facility] [id number] [address] [place] [address] Dec, Attention deficit hyperactiv ity disorder (ADHD), combined type F90.2 [facility] [address] [facility] [id number] [address] [place] [phone] Dec, Bipolar disorder, in partial remission, most recent episode hypomanic F31.71 ; Attention deficit hyperactivity disorder (ADHD), combined type F90.2 and Anxiety disorder, unspecified type F41.9 [place] [address] [place] [id number] [address] [place] [address] Dec, Bipolar disorder, in partial remission, most recent episode hypomanic F31.71 ; Attention deficit hyperactivity disorder (ADHD), combined type F90.2 and Anxiety disorder, unspecified type F41.9 [facility] [address] [facility] [id number] [address] [place] [address] Dec, Bipolar 1 disorder F31.9 and Attention deficit R41.840 [place] [address] [place] [id number] [address] [place] [address] Oct, Other chronic pain G89.29 ; Alopecia L65.9 and Screening, lipid Z13.220 [facility] [address] [facility] [id number] [address] [place] [address] Oct, [facility] [address] [place] [id number] [address] [place] [phone] Aug, [facility] [address] [facility] [id number] [address] [place] [address] Aug, Eustachian tube dysfunction, right H69.81 ; Vertigo R42 and Other chronic pain G89.29 [facility] [address] [id number] [address] [place] [phone] Aug, [facility] [address] [id number] [address] [place] [address] Jun, [facility] [address] [id number] [address] [place] [address] Jun, Low back pain M54.5 and Othe r chronic pain G89.29 [facility] [address] [id number] [address] [place] [address] Jun, [facility] [address] [id number] [address] [place] [phone] May, [facility] [address] [id number] [address] [place] [phone] Jan, [facility] [address] [id number] [address] [place] [address] Dec, [facility] [address] [id number] [address] [place] [address] Dec, [facility] [address] [id number] [address] [place] [address] Jun, [facility] [address] [id number] [address] [place] [address] Apr, Eustachian tube dysfunction, unspecified laterality H69.80 ; Hot flashes N95.1 and Encounter for immunization Z23 [facility] [address] [id number] [address] [place] [phone] Jan, [facility] [address] [id number] [address] [place] [address] Jan, [facility] [address] [id number] [address] [place] [address] Jan, [facility] [address] [id number] [address] [place] [address] Jan, [facility] [address] [id number] [address] [place] [address] Jan, Encounter to establish care V65.8 ; Bipolar 1 disorder 296.7 ; Abdominal pain 789.00 ; Constipation 564.00 ; Hard of hearing 389.9 and Drug abuse 305.90 [facility] [address] [id number] [address] [place] [address] Dec, [facility] [address] [id number] [address] [place] [address] October, [facility] [address] [id number] [address] [place] [address] October, [facility] [address] [id number] [address] [place] [phone] Oct, [facility] [address] [id number] [address] [place] [address] Oct, [facility] [address] [facility] [id number] [address] [place] [phone] Oct, [facility] [address] [id number] [address] [place] [phone] Aug, [facility] [address] [id number] [address] [place] [phone] Aug, [facility] [address] [id number] [address] [place] [phone] Aug, [facility] [address] [id number] [address] [place] [address] Aug, [facility] [address] [id number] [address] [place] [phone] Aug, [facility] [address] [id number] [address] [place] [phone] Aug, [facility] [address] [id number] [address] [place] [phone] Aug, [facility] [address] [id number] [address] [place] [address], [place] [address] Aug, 2014 [facility] [address] [id number] [address] [place] [address], [place] [address] Aug, 2014 [facility] [address] [id number] [address] [place] [address], [place] [address] Aug, 2014 [facility] [address] [id number] [address] [place] [address], [place] [address] Aug, 2014 [facility] [address] [id number] [address] [place] [address], [place] [address] Aug, 2014 [facility] [address] [id number] [address] [place] [address], [place] [address] Aug, 2014 [facility] [address] [id number] [address] [place] [address], [place] [address] Aug, 2014 [facility] [address] [id number] [address] [place] [address], [place] [address] Aug, [facility] [address] [id number] [address] [place] [address], [place] [address] Jul, [facility] [address] [id number] [address] [place] [address], [place] [address] Jul, [facility] [address] [id number] [address] [place] [address], [place] [address] Jul, [facility] [address] [id number] [address] [place] [address], [place] [address] Jul, [facility] [address] [id number] [address] [place] [address], [place] [address] Jul, [facility] [address] [id number] [address] [place] [address], [place] [address] Jul, [facility] [address] [id number] [address] [place] [address], [place] [address] Jul, [facility] [address] [id number] [address] [place] [address], [place] [address] Jul, [facility] [address] [id number] [address] [place] [address], [place] [address] Jun, [facility] [address] [id number] [address] [place] [address], [place] [address] Jun, [facility] [address] [id number] [address] [place] [address], [place] [address] Jun, [facility] [address] [id number] [address] [place] [address], [place] [address] Jun, [facility] [address] [id number] [address] [place] [address], [place] [address] Jun, [facility] [address] [id number] [address] [place] [address], [place] [address] Jun, [facility] [address] [id number] [address] [place] [address], [place] [address] Jun, [facility] [address] [id number] [address] [place] [address], [place] [address] Jun, [facility] [address] [id number] [address] [place] [address], [place] [address] Jun, [facility] [address] [id number] [address] [place] [address], [place] [address] Jun, [facility] [address] [id number] [address] [place] [address], [place] [address] Jun, [facility] [address] [id number] [address] [place] [address], [place] [address] May, [facility] [address] [id number] [address] [place] [address], [place] [address] May, [facility] [address] [id number] [address] [place] [address], [place] [address] May, [facility] [address] [id number] [address] [place] [address], [place] [address] May, [facility] [address] [id number] [address] [place] [address], [place] [address] May, [facility] [address] [id number] [address] [place] [address], [place] [address] May, [facility] [address] [id number] [address] [place] [address], [place] [address] May, [facility] [address] [id number] [address] [place] [address], [place] [address] Apr, [facility] [address] [id number] [address] [place] [address], [place] [address] Apr, [facility] [address] [id number] [address] [place] [address], [place] [address] Apr, [facility] [address] [id number] [address] [place] [address], [place] [address] Apr, [facility] [address] [id number] [address] [place] [address], [place] [address] Apr, [facility] [address] [id number] [address] [place] [address], [place] [id number] Apr, [facility] [address] [id number] [address] [place] [address], [place] [id number] Mar, [facility] [address] [id number] [address] [place] [address], [place] [id number] 29 Mar, 2014 [facility] [address] [id number] [address] [place] [address], [place] [id number] Mar, [facility] [address] [id number] [address] [place] [address], [place] [id number] Mar, [facility] [address] [id number] [address] [place] [address], [place] [id number] Mar, [facility] [address] [id number] [address] [place] [address], [place] [id number] Mar, [facility] [address] [id number] [address] [place] [address], [place] [id number] Jan, [facility] [address] [id number] [address] [place] [address], [place] [id number] Jan, [facility] [address] [id number] [address] [place] [address], [place] [id number] Jan, [facility] [address] [id number] [address] [place] [address], [place] [id number] Jan, [facility] [address] [id number] [address] [place] [address], [place] [id number] Dec, [facility] [address] [id number] [address] [place] [address], [place] [id number] Dec, [facility] [address] [id number] [address] [place] [address], [place] [id number] Dec, [facility] [address] [id number] [address] [place] [address], [place] [id number] Dec, [facility] [address] [id number] [address] [place] [address], [place] [id number] Dec, [facility] [address] [id number] [address] [place] [address], [place] [id number] Dec, [facility] [address] [id number] [address] [place] [address], [place] [id number] Dec, [facility] [address] [id number] [address] [place] [address], [place] [id number] Dec, [facility] [address] [id number] [address] [place] [address], [place] [id number] Dec, [facility] [address] [id number] 90 [place] [address], [place] [address] Dec, [facility] [address] [id number] [address] [place] [address], [place] [address] Dec, [facility] [address] [id number] [address] [place] [address], [place] [address] Dec, [facility] [address] [id number] [address] [place] [address], [place] [address] October, [facility] [address] [id number] [address] [place] [address], [place] [address] October, [facility] [address] [id number] [address] [place] [address], [place] [address] October, [facility] [address] [id number] [address] [place] [address], [place] [address] October, [facility] [address] [id number] [address] [place] [address], [place] [address] October, [facility] [address] [id number] [address] [place] [address], [place] [address] October, [facility] [address] [id number] [address] [place] [address], [place] [address] Oct, [facility] [address] [id number] [address] [place] [address], [place] [address] Oct, [facility] [address] [id number] [address] [place] [address], [place] [address] Oct, [facility] [address] [id number] [address] [place] [address], [place] [address] Oct, [facility] [address] [id number] [address] [place] [address], [place] [address] Oct, [facility] [address] [id number] [address] [place] [address], [place] [address] Oct, [facility] [address] [id number] [address] [place] [address], [place] [address] Oct, [facility] [address] [id number] [address] [place] [address], [place] [address] Oct, [facility] [address] [id number] [address] [place] [address], [place] [address] Oct, [facility] [address] [id number] [address] [place] [address], [place] [address] Oct, [facility] [address] [id number] [facility] [address] 08 Oct, 2013 [facility] [address] [id number] [address] [place] [address], [place] [address] Oct, [facility] [address] [id number] [address] [place] [address], [place] [address] 15 Aug, 2013 [facility] [address] [id number] [address] [place] [address], [place] [address] 15 Aug, 2013 [facility] [address] [id number] [address] [place] [address], [place] [address] Aug, [facility] [address] [id number] [address] [place] [address], [place] [address] Aug, [facility] [address] [id number] [address] [place] [address], [place] [address] Aug, [facility] [address] [id number] [address] [place] [address], [place] [address] Aug, [facility] [address] [id number] [address] [place] [address], [place] [address] 04 Aug, 2013 [facility] [address] [id number] [address] [place] [address], [place] [address] Aug, [facility] [address] [id number] [address] [place] [address], [place] [address] Aug, [facility] [address] [id number] [address] [place] [address], [place] [address] Aug, [facility] [address] [id number] [address] [place] [address], [place] [address] Aug, [facility] [address] [id number] [address] [place] [address], [place] [address] Aug, [facility] [address] [id number] [address] [place] [address], [place] [address] Aug, [facility] [address] [id number] [address] [place] [address], [place] [address] 20 Aug, 2013 [facility] [address] [id number] [address] [place] [address], [place] [address] 14 Aug, 2013 [facility] [address] [id number] [address] [place] [address], [place] [address] 14 Aug, 2013 [facility] [address] [id number] [address] [place] [address], [place] [address] 14 Aug, 2013 [facility] [address] [id number] [address] [place] [address], [place] [address] 14 Aug, 2013 [facility] [address] [id number] [address] [place] [address], [place] [address] 07 Aug, 2013 [facility] [address] [id number] [address] [place] [address], [place] [address] 07 Aug, 2013 [facility] [address] [id number] [address] [place] [address], [place] [address] 06 Aug, 2013 [facility] [address] [id number] [address] [place] [address], [place] [address] 06 Aug, 2013 [facility] [address] [id number] [address] [place] [address], [place] [address] 04 Aug, 2013 [facility] [address] [id number] [address] [place] [address], [place] [address] 04 Aug, 2013 [facility] [address] [id number] [address] [place] [address], [place] [address] Aug, [facility] [address] [id number] [address] [place] [address], [place] [address] Jul, [facility] [address] [id number] [address] [place] [address], [place] [address] Jul, [facility] [address] [id number] [address] [place] [address], [place] [address] Jul, [facility] [address] [id number] [address] [place] [address], [place] [address] Jul, [facility] [address] [id number] [address] [place] [address], [place] [address] Jul, [facility] [address] [id number] [address] [place] [address], [place] [address] Jul, [facility] [address] [id number] [address] [place] [address], [place] [address] Jul, [facility] [address] [id number] [address] [place] [address], [place] [address] Jul, [facility] [address] [id number] [address] [place] [address], [place] [address] Jul, [facility] [address] [id number] [address] [place] [address], [place] [address] Jul, [facility] [address] [id number] [address] [place] [address], [place] [address] Jul, [facility] [address] [id number] [address] [place] [address], [place] [address] Jul, [facility] [address] [id number] [address] [place] [address], [place] [address] Jul, [facility] [address] [id number] [address] [place] [address], [place] [address] Jul, [facility] [address] [id number] [address] [place] [address], [place] [address] Jul, [facility] [address] [id number] [address] [place] [address], [place] [address] Jul, [facility] [address] [id number] [address] [place] [address], [place] [address] Jul, [facility] [address] [id number] [address] [place] [address], [place] [address] Jul, [facility] [address] [id number] [address] [place] [address], [place] [address] Jul, [facility] [address] [id number] [address] [place] [address], [place] [address] Jul, [facility] [address] [id number] [address] [place] [address], [place] [address] Jun, [facility] [address] [id number] [address] [place] [address], [place] [address] Jun, [facility] [address] [id number] [address] [place] [address], [place] [address] Jun, [facility] [address] [id number] [address] [place] [address], [place] [address] Jun, [facility] [address] [id number] [address] [place] [address], [place] [address] Jun, [facility] [address] [id number] [address] [place] [address], [place] [address] Jun, [facility] [address] [id number] [address] [place] [address], [place] [address] Jun, [facility] [address] [id number] [address] [place] [address], [place] [address] Jun, [facility] [address] [id number] [address] [place] [address], [place] [address] Jun, [facility] [address] [id number] [address] [place] [address], [place] [address] Jun, [facility] [address] [id number] [address] [place] [address], [place] [address] Jun, [facility] [address] [id number] [address] [place] [address], [place] [address] Jun, [facility] [address] [id number] [address] [place] [address], [place] [address] Jun, [facility] [address] [id number] [address] [place] [address], [place] [address] Jun, [facility] [address] [id number] [address] [place] [address], [place] [address] Jun, [facility] [address] [id number] [address] [place] [address], [place] [address] 18 Jun, 2013 [facility] [address] [id number] [address] [place] [address], [place] [address] 18 Jun, 2013 [facility] [address] [id number] [address] [place] [address], [place] [address] 17 Jun, 2013 [facility] [address] [id number] [address] [place] [address], [place] [address] 17 Jun, 2013 [facility] [address] [id number] [address] [place] [address], [place] [address] 13 Jun, 2013 [facility] [address] [id number] [address] [place] [address], [place] [address] Jun, [facility] [address] [id number] [address] [place] [address], [place] [address] 12 Jun, 2013 [facility] [address] [id number] [address] [place] [address], [place] [address] Jun, [facility] [address] [id number] [address] [place] [address], [place] [address] 05 Jun, 2013 [facility] [address] [id number] [address] [place] [address], [place] [address] 05 Jun, 2013 [facility] [address] [id number] [address] [place] [address], [place] [address] Jun, [facility] [address] [id number] [address] [place] [address], [place] [address] Jun, [facility] [address] [id number] [address] [place] [address], [place] [address] May, [facility] [address] [id number] [address] [place] [address], [place] [address] May, [facility] [address] [id number] [address] [place] [address], [place] [address] May, [facility] [address] [id number] [address] [place] [address], [place] [address] May, [facility] [address] [id number] [address] [place] [address], [place] [address] May, [facility] [address] [id number] [address] [place] [address], [place] [address] May, [facility] [address] [id number] [address] [place] [address], [place] [address] Apr, [facility] [address] [id number] [address] [place] [address], [place] [address] Apr, [facility] [address] [id number] [address] [place] [address], [place] [address] Apr, [facility] [address] [id number] [address] [place] [address], [place] [address] Apr, [facility] [address] [id number] [address] [place] [address], [place] [address] Apr, [facility] [address] [id number] [address] [place] [address], [place] [address] Apr, [facility] [address] [id number] [address] [place] [address], [place] [address] Apr, [facility] [address] [id number] [address] [place] [address] Apr, [facility] [address] [id number] [address] [place] [address], [place] [address] 26 Mar, 2013 [facility] [address] [id number] [address] [place] [address] 24 Sep2012 [facility] [address] [id number] [address] [place] [address], [place] [address] 17 Sep2012 [facility] [address] [id number] [address] [place] [address], [place] [address] 17 Mar, 2012 [facility] [address] [id number] [address] [place] [address], [place] [address] 11 Mar, 2013 [facility] [address] [id number] [address] [place] [address], [place] [address] 10 Mar, 2013 [facility] [address] [id number] [address] [place] [address], [place] [address] 05 Mar, 2013 [facility] [address] [id number] [address] [place] [address], [place] [address] 04 Mar, 2013 [facility] [address] [id number] [address] [place] [address], [place] [address] Jan, [facility] [address] [id number] [address] [place] [address], [place] [address] Jan, [facility] [address] [id number] [address] [place] [address], [place] [address] 14 Jan, 2013 [facility] [address] [id number] [address] [place] [address], [place] [address] Jan, [facility] [address] [id number] [address] [place] [address], [place] [address] Jan, [facility] [address] [id number] [address] [place] [address], [place] [address] Jan, [facility] [address] [id number] [address] [place] [address], [place] [address] Dec, [facility] [address] [id number] [address] [place] [address], [place] [address] Dec, [facility] [address] [id number] [address] [place] [address], [place] [address] Dec, [facility] [address] [id number] [address] [place] [address], [place] [address] Dec, [facility] [address] [id number] [address] [place] [address], [place] [address] 18 Dec, 2012 [facility] [address] [id number] [address] [place] [address], [place] [address] 17 Dec, 2012 [facility] [address] [id number] [address] [place] [address], [place] [address] 16 Dec, 2012 [facility] [address] [id number] [address] [place] [address], [place] [address] 16 Dec, 2012 [facility] [address] [id number] [address] [place] [address], [place] [address] 15 Dec, 2012 [facility] [address] [id number] [address] [place] [address], [place] [address] 10 Dec, 2012 [facility] [address] [id number] [address] [place] [address], [place] [address] Dec, [facility] [address] [id number] [address] [place] [address], [place] [address] Dec, [facility] [address] [id number] [address] [place] [address], [place] [address] Dec, [facility] [address] [id number] [address] [place] [address], [place] [address] Dec, [facility] [address] [id number] [address] [place] [address], [place] [address] Dec, [facility] [address] [id number] [address] [place] [address], [place] [address] Dec, [facility] [address] [id number] [address] [place] [address], [place] [address] October, [facility] [address] [id number] [address] [place] [address], [place] [address] October, [facility] [address] [id number] [address] [place] [address], [place] [address] October, [facility] [address] [id number] [address] [place] [address], [place] [address] October, [facility] [address] [id number] [address] [place] [address], [place] [address] October, [facility] [address] [id number] [address] [place] [address], [place] [address] October, [facility] [address] [id number] [address] [place] [address], [place] [address] October, [facility] [address] [id number] [address] [place] [address], [place] [address] Oct, [facility] [address] [id number] [address] [place] [address], [place] [address] Oct, [facility] [address] [id number] [address] [place] [address], [place] [address] Oct, [facility] [address] [id number] [address] [place] [address], [place] [address] Oct, [facility] [address] [id number] [address] [place] [address], [place] [address] Oct, [facility] [address] [id number] [address] [place] [address], [place] [address] Oct, [facility] [address] [id number] [address] [place] [address], [place] [address] Oct, [facility] [address] [id number] [address] [place] [address], [place] [address] 15 Oct, 2012 [facility] [address] [id number] [address] [place] [address], [place] [address] Oct, [facility] [address] [id number] [address] [place] [address], [place] [address] Oct, [facility] [address] [id number] [address] [place] [address], [place] [address] Oct, [facility] [address] [id number] [address] [place] [address], [place] [address] Oct, [facility] [address] [id number] [address] [place] [address], [place] [address] Aug, [facility] [address] [id number] [address] [place] [address], [place] [address] Aug, [facility] [address] [id number] [address] [place] [address], [place] [address] Aug, [facility] [address] [id number] [address] [place] [address], [place] [address] 06 Aug, 2012 [facility] [address] [id number] [address] [place] [address], [place] [address] 05 Aug, 2012 [facility] [address] [id number] [address] [place] [address], [place] [id number] 05 Aug, 2012 [facility] [address] [id number] [address] [place] [address], [place] [id number] 20 Aug, 2012 [facility] [address] [id number] [address] [place] [address], [place] [id number] 14 Aug, 2012 [facility] [address] [id number] [address] [place] [address], [place] [id number] 12 Aug, 2012 [facility] [address] [id number] [address] [place] [address], [place] [id number] Aug, [facility] [address] [id number] [address] [place] [address], [place] [id number] 29 Jul, 2012 [facility] [address] [id number] [address] [place] [address], [place] [id number] 15 Jul, 2012 [facility] [address] [id number] [address] [place] [address], [place] [id number] 08 Jul, 2012 [facility] [address] [id number] [address] [place] [address], [place] [id number] Jun, [facility] [address] [id number] [address] [place] [address], [place] [id number] 18 Jun, 2012 [facility] [address] [id number] [address] [place] [address], [place] [id number] 18 Jun, 2012 [facility] [address] [id number] [address] [place] [address], [place] [id number] 18 Jun, 2012 [facility] [address] [id number] [address] [place] [address], [place] [id number] 18 Jun, 2012 [facility] [address] [id number] [address] [place] [address], [place] [id number] 14 Jun, 2012 [facility] [address] [id number] [address] [place] [address], [place] [id number] 14 Jun, 2012 [facility] [address] [id number] [address] [place] [address], [place] [id number] 13 Jun, 2012 [facility] [address] [id number] [address] [place] [address], [place] [id number] 13 Jun, 2012 [facility] [address] [id number] [address] [place] [address], [place] [id number] 11 Jun, 2012 [facility] [address] [id number] [address] [place] [address], [place] [id number] 11 Jun, 2012 [facility] [address] [id number] [address] [place] [address], [place] [id number] 11 Jun, 2012 [facility] [address] [id number] [address] [place] [address], [place] [id number] Jun, [facility] [address] [id number] [address] [place] [address], [place] [id number] 07 Jun, 2012 [facility] [address] [id number] [address] [place] [address], [place] [id number] 07 Jun, 2012 [facility] [address] [id number] [address] [place] [address], [place] [id number] 06 Jun, 2012 [facility] [address] [id number] [address] [place] [address], [place] [id number] 06 Jun, 2012 [facility] [address] [id number] [address] [place] [address], [place] [id number] Jun, [facility] [address] [id number] [address] [place] [address], [place] [id number] Jun, [facility] [address] [id number] [address] [place] [address], [place] [id number] 05 Jun, 2012 [facility] [address] [id number] [address] [place] [address], [place] [id number] 05 Jun, 2012 [facility] [address] [id number] [address] [place] [address], [place] [id number] Jun, [facility] [address] [id number] [address] [place] [address], [place] [id number] Jun, [facility] [address] [id number] [address] [place] [address], [place] [id number] May, [facility] [address] [id number] [address] [place] [address], [place] [id number] May, [facility] [address] [id number] [address] [place] [address], [place] [id number] May, [facility] [address] [id number] [address] [place] [address], [place] [id number] May, [facility] [address] [id number] [address] [place] [address], [place] [address] May, [facility] [address] [id number] [address] [place] [address], [place] [address] May, [facility] [address] [id number] [address] [place] [address], [place] [id number] May, [facility] [address] [id number] [address] [place] [address], [place] [address] May, [facility] [address] [id number] [address] [place] [address], [place] [address] Apr, [facility] [address] [id number] [address] [place] [address], [place] [address] 30 Apr, 2012 [facility] [address] [id number] [address] [place] [address], [place] [address] 29 Apr, 2012 [facility] [address] [id number] [address] [place] [address], [place] [address] Apr, [facility] [address] [id number] [address] [place] [address], [place] [address] Apr, [facility] [address] [id number] [address] [place] [id number] Apr, [facility] [address] [id number] [address] [place] [address], [place] [address] Apr, [facility] [address] [id number] [address] [place] [address], [place] [address] Apr, [facility] [address] [id number] [address] [place] [address], [place] [address] Apr, [facility] [address] [id number] [address] [place] [address], [place] [address] Apr, [facility] [address] [id number] [address] [place] [address], [place] [address] Apr, [facility] [address] [id number] [address] [place] [address], [place] [address] Apr, [facility] [address] [id number] [address] [place] [address], [place] [address] Mar, [facility] [address] [id number] [address] [place] [address], [place] [address] 18 Mar, 2012 [facility] [address] [id number] [address] [place] [address], [place] [address] Mar, [facility] [address] [id number] [address] [place] [address], [place] [address] Mar, [facility] [address] [id number] [address] [place] [id number] Mar, [facility] [address] [id number] [address] [place] [id number] Mar, [facility] [address] [id number] [address] [place] [id number] Mar, [facility] [address] [id number] [address] [place] [address], [place] [address] Jan, [facility] [address] [id number] [address] [place] [id number] Jan, [facility] [address] [id number] [address] [place] [id number] Jan, [facility] [address] [id number] [address] [place] [address], [place] [id number] Jan, [facility] [address] [id number] [address] [place] [address], [place] [address] Jan, [facility] [address] [id number] [address] [place] [address], [place] [address] Jan, [facility] [address] [id number] [address] [place] [address], [place] [address] Jan, [facility] [address] [id number] [address] [place] [address], [place] [address] Jan, [facility] [address] [id number] [address] [place] [address], [place] [address] Jan, [facility] [address] [id number] [address] [place] [address], [place] [address] Jan, [facility] [address] [id number] [address] [place] [address], [place] [address] Jan, [facility] [address] [id number] [address] [place] [address], [place] [address] Dec, [facility] [address] [id number] [address] [place] [address], [place] [address] Dec, [facility] [address] [id number] [address] [place] [address], [place] [address] Dec, [facility] [address] [id number] [address] [place] [address], [place] [address] Dec, [facility] [address] [id number] [address] [place] [address], [place] [address] Dec, [facility] [address] [id number] [address] [place] [address], [place] [address] Dec, [facility] [address] [id number] [address] [place] [address], [place] [address] Dec, [facility] [address] [id number] [address] [place] [address], [place] [address] 17 Jan, 2012 [facility] [address] [id number] [address] [place] [address], [place] [address] 16 Jan, 2012 [facility] [address] [id number] [address] [place] [address], [place] [address] 13 Jan, 2012 [facility] [address] [id number] [address] [place] [address], [place] [address] 13 Jan, 2012 [facility] [address] [id number] [address] [place] [address], [place] [address] 02 Jan, 2012 [facility] [address] [id number] [address] [place] [address], [place] [address] Dec, [facility] [address] [id number] [address] [place] [address], [place] [address] Dec, [facility] [address] [id number] [address] [place] [address], [place] [address] Dec, [facility] [address] [id number] [address] [place] [address], [place] [address] 18 Dec, 2011 [facility] [address] [id number] [address] [place] [address], [place] [id number] 15 Dec, 2011 [facility] [address] [id number] [address] [place] [address], [place] [address] 06 Dec, 2011 [facility] [address] [id number] [address] [place] [address], [place] [address] 05 Dec, 2011 [facility] [address] [id number] [address] [place] [address], [place] [address] October, [facility] [address] [id number] [address] [place] [address], [place] [address] October, [facility] [address] [id number] [address] [place] [address], [place] [address] October, [facility] [address] [id number] [address] [place] [address], [place] [address] October, [facility] [address] [id number] [address] [place] [address], [place] [address] October, [facility] [address] [id number] [address] [place] [address], [place] [address] October, [facility] [address] [id number] [address] [place] [address], [place] [address] Oct, [facility] [address] [id number] [address] [place] [address], [place] [address] Oct, [facility] [address] [id number] [address] [place] [address], [place] [address] Oct, [facility] [address] [id number] [address] [place] [address], [place] [address] Oct, [facility] [address] [id number] [address] [place] [address], [place] [address] Oct, [facility] [address] [id number] [address] [place] [address], [place] [address] Oct, [facility] [address] [id number] [address] [place] [address], [place] [address] Oct, [facility] [address] [id number] [address] [place] [address], [place] [address] Aug, [facility] [address] [id number] [address] [place] [address], [place] [address] Aug, [facility] [address] [id number] [address] [place] [address], [place] [address] Aug, [facility] [address] [id number] [address] [place] [address], [place] [address] Aug, [facility] [address] [id number] [address] [place] [address], [place] [address] Aug, [facility] [address] [id number] [address] [place] [address], [place] [address] 05 Sep, 2011 [facility] [address] [id number] [address] [place] [address], [place] [address] Aug, [facility] [address] [id number] [address] [place] [address], [place] [address] Aug, [facility] [address] [id number] [address] [place] [address], [place] [address] 08 Aug, 2011 [facility] [address] [id number] [address] [place] [address], [place] [address] Jul, [facility] [address] [id number] [address] [place] [address], [place] [address] Jul, [facility] [address] [id number] [address] [place] [address], [place] [address] Jul, [facility] [address] [id number] [address] [place] [address], [place] [address] Jul, [facility] [address] [id number] [address] [place] [address], [place] [address] Jun, [facility] [address] [id number] [address] [place] [address], [place] [address] Jun, [facility] [address] [id number] [address] [place] [address], [place] [address] May, [facility] [address] [id number] [address] [place] [address], [place] [address] May, [facility] [address] [id number] [address] [place] [address], [place] [address] May, [facility] [address] [id number] [address] [place] [address], [place] [address] May, [facility] [address] [id number] [address] [place] [address], [place] [address] May, [facility] [address] [id number] [address] [place] [address], [place] [address] Apr, [facility] [address] [id number] [address] [place] [address], [place] [address] Apr, [facility] [address] [id number] [address] [place] [id number] 10 Apr, 2011 [facility] [address] [id number] [address] [place] [id number] Jan, [facility] [address] [id number] [address] [place] [address] Dec, [facility] [address] [id number] [address] [place] [id number] October, [facility] [address] [id number] [address] [place] [id number] Jun, [facility] [address] [id number] [address] [place] [id number] Apr, [facility] [address] [id number] [address] [place] [id number] Apr, [facility] [address] [id number] [address] [place] [id number] Apr, [facility] [address] [id number] [address] [place] [id number] Jun, IMMUNIZATIONS No Known Immunizations SOCIAL HISTORY [...]
--- OUTSIDE RECORDS SUMMARY | 2020-01-25 13:26 | XMS REPORT ---
Author Author Ana Brannon [facility] Address [address] [place] [address] Care Team Providers Care Paper Finisher Name Role Phone Clovis ANEUDY Unavailable PROBLEMS Type Condition ICD9-CM Code LSB10-BN Code Onset Dates Condition S tatus SNOMED Code Problem Chronic hepatitis C without hepatic coma B18.2 Active 893580361 Problem Cannabis abuse F12.10 Active 92973 009 Problem Bipolar 1 disorder F31.9 Active 3 48307673 Problem Attention deficit hyperactivity disorder (ADHD), combi luciano type F90.2 Active 34742452 Problem Attention deficit R41.840 Active 76 833594 Problem Hot flashes due to menopause N95.1 A ctive 950667611 Problem H/O laminectomy Z98.89 Active 1616 43760 Problem Other chronic pain G89.29 Active 8 5553427 Problem Anxiety disorder, unspecified type F41.9 Active 700033819 Problem Bipolar disorder, in partial remission, most rec ent episode hypomanic F31.71 Active 133097820 ALLERGIES No Information ENCOUNTERS Encounter Location Date Diagnosis [facility] [address] [id number] [address] [place] [id number] Oct, [facility] [address] [facility] [id number] [address] [place] [phone] Oct, [facility] [address] [facility] [id number] [address] [place] [id number] Aug, [facility] [address] [facility] [id number] [address] [place] [phone] Jul, [facility] [address] [facility] [id number] [address] [place] [phone] Jul, [facility] [address] [facility] [id number] [address] [place] [phone] Apr, [facility] [address] [id number] [address] [place] [phone] Mar, Hot flashes due to menopause N95.1 ; Anxiety disorder, unspecified type F41.9 ; Low back pain M54.5 and Encounter for immunization Z23 [facility] [address] [id number] [address] [place] [phone] Dec, Other chronic pain G89.29 an d Low back pain M54.5 [facility] [address] [id number] [address] [place] [phone] October, [facility] [address] [id number] [address] [place] [phone] October, [facility] [address] [id number] [address] [place] [phone] October, [facility] [address] [facility] [id number] [address] [place] [phone] October, Other chronic pain G89.29 an d Chronic hepatitis C without hepatic coma B18.2 [facility] [address] [id number] [address] [place] [address] Aug, Bipolar disorder, in partial remission, most recent episode hypomanic F31.71 ; Attention deficit hyperactivity disorder (ADHD), combined type F90.2 and Anxiety disorder, unspecified type F41.9 [facility] [address] [id number] [address] [place] [phone] Aug, [facility] [address] [id number] [address] [place] [phone] Aug, Bipolar disorder, in partial remission, most recent episode hypomanic F31.71 [facility] [address] [facility] [id number] [address] [place] [phone] Aug, [facility] [address] [facility] [id number] [address] [place] [phone] Aug, Bipolar disorder, in partial remission, most recent episode hypomanic F31.71 [facility] [address] [id number] [address] [place] [phone] Aug, Bipolar disorder, in partial remission, most recent episode hypomanic F31.71 ; Attention deficit hyperactivity disorder (ADHD), combined type F90.2 and Anxiety disorder, unspecified type F41.9 [facility] [address] [id number] [address] [place] [id number] Aug, Low back pain M54.5 and Pain in left wrist M25.532 [facility] [address] [id number] [address] [place] [phone] Aug, [facility] [address] [id number] [address] [place] [phone] Jun, [facility] [address] [id number] [address] [place] [id number] Apr, Bipolar disorder, in partial remission, most recent episode hypomanic F31.71 [facility] [address] [id number] [address] [place] [address] Apr, [facility] [address] [id number] [address] [place] [address] Apr, Bipolar disorder, in partial remission, most recent episode hypomanic F31.71 ; Attention deficit hyperactivity disorder (ADHD), combined type F90.2 ; Anxiety disorder, unspecified type F41.9 and Other snf (current) drug therapy Z79.899 [facility] [address] [id number] [address] [place] [phone] Apr, Bipolar disorder, in partial remission, most recent episode hypomanic F31.71 [facility] [address] [id number] [address] [place] [address] Apr, Bipolar disorder, in partial remission, most recent episode hypomanic F31.71 [facility] [address] [id number] [address] [place] [phone] Mar, [facility] [address] [id number] [address] [place] [address] Mar, Bipolar disorder, in partial remission, most recent episode hypomanic F31.71 ; Encounter for immunization Z23 and Low back pain M54.5 [facility] [address] [id number] [address] [place] [phone] 17 Mar, 2018 Bipolar disorder, in partial remission, most recent episode hypomanic F31.71 [facility] [address] [id number] [address] [place] [address] Mar, Bipolar disorder, in partial remission, most recent episode hypomanic F31.71 [facility] [address] [id number] [address] [place] [phone] Jan, Bipolar disorder, in partial remission, most recent episode hypomanic F31.71 [facility] [address] [id number] [address] [place] [phone] Jan, Bipolar disorder, in partial remission, most recent episode hypomanic F31.71 [facility] [address] [id number] [address] [place] [phone] Dec, Bipolar disorder, in partial remission, most recent episode hypomanic F31.71 [facility] [address] [facility] [id number] [address] [place] [address] Dec, Bipolar disorder, in partial remission, most recent episode hypomanic F31.71 ; Attention deficit hyperactivity disorder (ADHD), combined type F90.2 ; Anxiety disorder, unspecified type F41.9 and Other snf (current) drug therapy Z79.899 [facility] [address] [id number] [address] [place] [address] Dec, Bipolar disorder, in partial remission, most recent episode hypomanic F31.71 [facility] [address] [facility] [id number] [address] [place] [address] Dec, Bipolar disorder, in partial remission, most recent episode hypomanic F31.71 [facility] [address] [facility] [id number] [address] [place] [address] October, Bipolar disorder, in partial remission, most recent episode hypomanic F31.71 [facility] [address] [id number] [address] [place] [phone] October, [facility] [address] [id number] [address] [place] [address] October, [facility] [address] [id number] [address] [place] [address] Oct, Bipolar disorder, in partial remission, most recent episode hypomanic F31.71 ; Attention deficit hyperactivity disorder (ADHD), combined type F90.2 ; Anxiety disorder, unspecified type F41.9 and Encounter for drug screening Z02.83 [facility] [address] [id number] [address] [place] [phone] Oct, Bipolar disorder, in partial remission, most recent episode hypomanic F31.71 [facility] [address] [id number] [address] [place] [phone] Oct, Bipolar disorder, in partial remission, most recent episode hypomanic F31.71 [facility] [address] [facility] [id number] [address] [place] [address] Aug, Bipolar disorder, in partial remission, most recent episode hypomanic F31.71 [facility] [address] [facility] [id number] [address] [place] [address] Aug, Bipolar disorder, in partial remission, most recent episode hypomanic F31.71 [facility] [address] [id number] [address] [place] [address] Aug, Bipolar disorder, in partial remission, most recent episode hypomanic F31.71 [facility] [address] [facility] [id number] [address] [place] [address] Jul, Bipolar disorder, in partial remission, most recent episode hypomanic F31.71 ; Attention deficit hyperactivity disorder (ADHD), combined type F90.2 and Anxiety disorder, unspecified type F41.9 [facility] [address] [id number] [address] [place] [address] Jul, Bipolar disorder, in partial remission, most recent episode hypomanic F31.71 [facility] [address] [id number] [address] [place] [phone] Jun, Bipolar disorder, in partial remission, most recent episode hypomanic F31.71 [facility] [address] [id number] [address] [place] [address] May, Bipolar disorder, in partial remission, most recent episode hypomanic F31.71 [facility] [address] [id number] [address] [place] [address] May, Bipolar disorder, in partial remission, most recent episode hypomanic F31.71 [facility] [address] [facility] [id number] [address] [place] [phone] Apr, [facility] [address] [facility] [id number] [address] [place] [address] Apr, Bipolar disorder, in partial remission, most recent episode hypomanic F31.71 ; Attention deficit hyperactivity disorder (ADHD), combined type F90.2 ; Anxiety disorder, unspecified type F41.9 and Cannabis abuse F12.10 [facility] [address] [facility] [id number] [address] [place] [phone] Apr, Attention deficit hyperactiv ity disorder (ADHD), combined type F90.2 [facility] [address] [id number] [address] [place] [phone] Mar, Attention deficit hyperactiv ity disorder (ADHD), combined type F90.2 [facility] [address] [id number] [address] [place] [phone] 14 Mar, 2017 Anxiety disorder, unspecifie d type F41.9 [facility] [address] [facility] [id number] [address] [place] [phone] Jan, Attention deficit hyperactiv ity disorder (ADHD), combined type F90.2 [facility] [address] [place] [id number] [address] [place] [phone] Jan, Anxiety disorder, unspecifie d type F41.9 [facility] [address] [place] [id number] [address] [place] [phone] Jan, Other chronic pain G89.29 ; Chronic hepatitis C without hepatic coma B18.2 and Bipolar 1 disorder F31.9 [facility] [address] [place] [id number] [address] [place] [address] Dec, Attention deficit hyperactiv ity disorder (ADHD), combined type F90.2 [facility] [address] [place] [id number] [address] [place] [phone] Dec, Bipolar disorder, in partial remission, most recent episode hypomanic F31.71 ; Attention deficit hyperactivity disorder (ADHD), combined type F90.2 and Anxiety disorder, unspecified type F41.9 [place] [address] [place] [id number] [place] [address] Dec, Bipolar disorder, in partial remission, most recent episode hypomanic F31.71 ; Attention deficit hyperactivity disorder (ADHD), combined type F90.2 and Anxiety disorder, unspecified type F41.9 [place] [address] [place] [id number] [place] [address] Dec, Bipolar 1 disorder F31.9 and Attention deficit R41.840 [place] [address] [place] [id number] [address] [place] [address] Oct, Other chronic pain G89.29 ; Alopecia L65.9 and Screening, lipid Z13.220 [facility] [address] [place] [id number] [address] [place] [phone] Oct, [place] [address] [place] [id number] [place] [address] Aug, [place] [address] [place] [id number] [place] [address] Aug, Eustachian tube dysfunction, right H69.81 ; Vertigo R42 and Other chronic pain G89.29 [facility] [address] [id number] [address] [place] [phone] Aug, [facility] [address] [id number] [address] [place] [address] Jun, [facility] [address] [id number] [address] [place] [address] Jun, Low back pain M54.5 and Othe r chronic pain G89.29 [facility] [address] [id number] [address] [place] [address] Jun, [facility] [address] [id number] [address] [place] [phone] May, [facility] [address] [id number] [address] [place] [phone] Jan, [facility] [address] [id number] [address] [place] [phone] Dec, [facility] [address] [id number] [address] [place] [address] Dec, [facility] [address] [id number] [address] [place] [phone] Jun, [facility] [address] [facility] [id number] [address] [place] [address] Apr, Eustachian tube dysfunction, unspecified laterality H69.80 ; Hot flashes N95.1 and Encounter for immunization Z23 [facility] [address] [id number] [address] [place] [address] Jan, [facility] [address] [id number] [address] [place] [address] Jan, [facility] [address] [id number] [address] [place] [address] Jan, [facility] [address] [id number] [address] [place] [address] Jan, [facility] [address] [id number] [address] [place] [address] Jan, Encounter to establish care V65.8 ; Bipolar 1 disorder 296.7 ; Abdominal pain 789.00 ; Constipation 564.00 ; Hard of hearing 389.9 and Drug abuse 305.90 [facility] [address] [id number] [address] [place] [address] Dec, [facility] [address] [id number] [address] [place] [address] October, [facility] [address] [id number] [address] [place] [address] October, [facility] [address] [id number] [address] [place] [address] Oct, [facility] [address] [id number] [address] [place] [address] Oct, [facility] [address] [id number] [address] [place] [address] Oct, [facility] [address] [id number] [address] [place] [address] Aug, [facility] [address] [id number] [address] [place] [phone] Aug, [facility] [address] [id number] [address] [place] [phone] Aug, [facility] [address] [id number] [address] [place] [address] Aug, [facility] [address] [id number] [address] [place] [address] Aug, [facility] [address] [id number] [address] [place] [phone] Aug, [facility] [address] [id number] [address] [place] [address] Aug, [facility] [address] [id number] [address] [place] [address], [place] [address] Aug, 2014 [facility] [address] [id number] [address] [place] [address], [place] [address] Aug, 2014 [facility] [address] [id number] [address] [place] [address], [place] [id number] Aug, 2014 [facility] [address] [id number] [address] [place] [address], [place] [address] Aug, 2014 [facility] [address] [id number] [address] [place] [address], [place] [id number] Aug, 2014 [facility] [address] [id number] [address] [place] [address], [place] [address] Aug, 2014 [facility] [address] [id number] [address] [place] [address], [place] [id number] Aug, 2014 [facility] [address] [id number] [address] [place] [address], [place] [address] Aug, [facility] [address] [id number] [address] [place] [address], [place] [id number] Jul, [facility] [address] [id number] [address] [place] [address], [place] [address] Jul, [facility] [address] [id number] [address] [place] [address], [place] [id number] Jul, [facility] [address] [id number] [address] [place] [address], [place] [id number] Jul, [facility] [address] [id number] [address] [place] [address], [place] [id number] Jul, [facility] [address] [id number] [address] [place] [address], [place] [address] Jul, [facility] [address] [id number] [address] [place] [address], [place] [id number] Jul, [facility] [address] [id number] [address] [place] [address], [place] [address] Jul, [facility] [address] [id number] [address] [place] [address], [place] [id number] Jun, [facility] [address] [id number] [address] [place] [address], [place] [address] Jun, [facility] [address] [id number] [address] [place] [address], [place] [id number] Jun, [facility] [address] [id number] [address] [place] [address], [place] [id number] Jun, [facility] [address] [id number] [address] [place] [address], [place] [id number] Jun, [facility] [address] [id number] [address] [place] [address], [place] [id number] Jun, [facility] [address] [id number] [address] [place] [address], [place] [id number] Jun, [facility] [address] [id number] [address] [place] [address], [place] [id number] Jun, [facility] [address] [id number] [address] [place] [address], [place] [id number] Jun, [facility] [address] [id number] [address] [place] [address], [place] [id number] Jun, [facility] [address] [id number] [address] [place] [address], [place] [id number] Jun, [facility] [address] [id number] [address] [place] [address], [place] [address] May, [facility] [address] [id number] [address] [place] [address], [place] [id number] May, [facility] [address] [id number] [address] [place] [address], [place] [id number] May, [facility] [address] [id number] [address] [place] [address], [place] [id number] May, [facility] [address] [id number] [address] [place] [address], [place] [id number] May, [facility] [address] [id number] [address] [place] [address], [place] [id number] May, [facility] [address] [id number] [address] [place] [address], [place] [id number] May, [facility] [address] [id number] [address] [place] [address], [place] [id number] Apr, [facility] [address] [id number] [address] [place] [address], [place] [id number] Apr, [facility] [address] [id number] [address] [place] [address], [place] [id number] Apr, [facility] [address] [id number] [address] [place] [address], [place] [id number] Apr, [facility] [address] [id number] [address] [place] [address], [place] [id number] Apr, [facility] [address] [id number] [address] [place] [address], [place] [id number] Apr, [facility] [address] [id number] [address] [place] [address], [place] [id number] Mar, [facility] [address] [id number] [address] [place] [address], [place] [id number] 29 Mar, 2014 [facility] [address] [id number] [address] [place] [address], [place] [id number] Mar, [facility] [address] [id number] [address] [place] [address], [place] [id number] Mar, [facility] [address] [id number] [address] [place] [address], [place] [id number] Mar, [facility] [address] [id number] [address] [place] [address], [place] [id number] Mar, [facility] [address] [id number] [address] [place] [address], [place] [id number] Jan, [facility] [address] [id number] [address] [place] [address], [place] [id number] Jan, [facility] [address] [id number] [address] [place] [address], [place] [id number] Jan, [facility] [address] [id number] [address] [place] [address], [place] [id number] Jan, [facility] [address] [id number] [address] [place] [address], [place] [id number] Dec, [facility] [address] [id number] [address] [place] [address], [place] [id number] Dec, [facility] [address] [id number] [address] [place] [address], [place] [id number] Dec, [facility] [address] [id number] [address] [place] [address], [place] [id number] Dec, [facility] [address] [id number] [address] [place] [address], [place] [id number] Dec, [facility] [address] [id number] [address] [place] [address], [place] [id number] Dec, [facility] [address] [id number] [address] [place] [address], [place] [id number] Dec, [facility] [address] [id number] [address] [place] [address], [place] [id number] Dec, [facility] [address] [id number] [address] [place] [address], [place] [id number] Dec, [facility] [address] [id number] [address] [place] [address], [place] [id number] Dec, [facility] [address] [id number] [address] [place] [address], [place] [id number] Dec, [facility] [address] [id number] [address] [place] [address], [place] [id number] Dec, [facility] [address] [id number] [address] [place] [address], [place] [id number] October, [facility] [address] [id number] [address] [place] [address], [place] [id number] October, [facility] [address] [id number] [address] [place] [address], [place] [id number] October, [facility] [address] [id number] [address] [place] [address], [place] [address] October, [facility] [address] [id number] [address] [place] [address], [place] [address] October, [facility] [address] [id number] [address] [place] [address], [place] [address] October, [facility] [address] [id number] [address] [place] [address], [place] [address] Oct, [facility] [address] [id number] [address] [place] [address], [place] [address] Oct, [facility] [address] [id number] [address] [place] [address], [place] [id number] Oct, [facility] [address] [id number] [address] [place] [address], [place] [address] Oct, [facility] [address] [id number] [address] [place] [address], [place] [address] Oct, [facility] [address] [id number] [address] [place] [address], [place] [address] Oct, [facility] [address] [id number] [address] [place] [address], [place] [address] Oct, [facility] [address] [id number] [address] [place] [address], [place] [address] Oct, [facility] [address] [id number] [address] [place] [address], [place] [address] Oct, [facility] [address] [id number] [address] [place] [address], [place] [address] Oct, [facility] [address] [id number] [facility] [place] [address] 08 Oct, 2013 [facility] [address] [id number] [facility] [place] [address] 08 Oct, 2013 [facility] [address] [id number] [facility] [place] [address] 15 Aug, 2013 [facility] [address] [id number] [address] [place] [address], [place] [address] 15 Aug, 2013 [facility] [address] [id number] [address] [place] [address], [place] [address] Aug, [facility] [address] [id number] [address] [place] [address], [place] [address] Aug, [facility] [address] [id number] [address] [place] [address], [place] [id number] Aug, [facility] [address] [id number] [address] [place] [address], [place] [address] Aug, [facility] [address] [id number] [address] [place] [address], [place] [address] Aug, [facility] [address] [id number] [address] [place] [address], [place] [address] Aug, [facility] [address] [id number] [address] [place] [address], [place] [address] Aug, [facility] [address] [id number] [address] [place] [address], [place] [address] Aug, [facility] [address] [id number] [address] [place] [address], [place] [address] Aug, [facility] [address] [id number] [address] [place] [address], [place] [address] Aug, [facility] [address] [id number] [address] [place] [address], [place] [address] Aug, [facility] [address] [id number] [address] [place] [address], [place] [address] 20 Aug, 2013 [facility] [address] [id number] [address] [place] [address], [place] [address] 14 Aug, 2013 [facility] [address] [id number] [address] [place] [address], [place] [address] 14 Aug, 2013 [facility] [address] [id number] [address] [place] [address], [place] [id number] 14 Aug, 2013 [facility] [address] [id number] [address] [place] [address], [place] [address] 14 Aug, 2013 [facility] [address] [id number] [address] [place] [address], [place] [address] 07 Aug, 2013 [facility] [address] [id number] [address] [place] [address], [place] [address] 07 Aug, 2013 [facility] [address] [id number] [address] [place] [address], [place] [address] 06 Aug, 2013 [facility] [address] [id number] [address] [place] [address], [place] [address] 06 Aug, 2013 [facility] [address] [id number] [address] [place] [address], [place] [address] 04 Aug, 2013 [facility] [address] [id number] [address] [place] [address], [place] [address] 04 Aug, 2013 [facility] [address] [id number] [address] [place] [address], [place] [address] Aug, [facility] [address] [id number] [address] [place] [address], [place] [address] Jul, [facility] [address] [id number] [address] [place] [address], [place] [address] Jul, [facility] [address] [id number] [address] [place] [address], [place] [id number] Jul, [facility] [address] [id number] [address] [place] [address], [place] [address] Jul, [facility] [address] [id number] [address] [place] [address], [place] [address] Jul, [facility] [address] [id number] [address] [place] [address], [place] [address] Jul, [facility] [address] [id number] [address] [place] [address], [place] [address] Jul, [facility] [address] [id number] [address] [place] [address], [place] [address] Jul, [facility] [address] [id number] [address] [place] [address], [place] [address] Jul, [facility] [address] [id number] [address] [place] [address], [place] [address] Jul, [facility] [address] [id number] [address] [place] [address], [place] [address] Jul, [facility] [address] [id number] [address] [place] [address], [place] [address] Jul, [facility] [address] [id number] [address] [place] [address], [place] [address] Jul, [facility] [address] [id number] [address] [place] [address], [place] [address] Jul, [facility] [address] [id number] [address] [place] [address], [place] [address] Jul, [facility] [address] [id number] [address] [place] [address], [place] [address] Jul, [facility] [address] [id number] [address] [place] [address], [place] [address] Jul, [facility] [address] [id number] [address] [place] [address], [place] [address] Jul, [facility] [address] [id number] [address] [place] [address], [place] [address] Jul, [facility] [address] [id number] [address] [place] [address], [place] [address] Jul, [facility] [address] [id number] [address] [place] [address], [place] [address] Jun, [facility] [address] [id number] [address] [place] [address], [place] [address] Jun, [facility] [address] [id number] [address] [place] [address], [place] [address] Jun, [facility] [address] [id number] [address] [place] [address], [place] [address] Jun, [facility] [address] [id number] [address] [place] [address], [place] [address] Jun, [facility] [address] [id number] [address] [place] [address], [place] [address] Jun, [facility] [address] [id number] [address] [place] [address], [place] [address] Jun, [facility] [address] [id number] [address] [place] [address], [place] [address] Jun, [facility] [address] [id number] [address] [place] [address], [place] [address] Jun, [facility] [address] [id number] [address] [place] [address], [place] [address] Jun, [facility] [address] [id number] [address] [place] [address], [place] [address] Jun, [facility] [address] [id number] [address] [place] [address], [place] [address] Jun, [facility] [address] [id number] [address] [place] [address], [place] [address] Jun, [facility] [address] [id number] [address] [place] [address], [place] [address] Jun, [facility] [address] [id number] [address] [place] [address], [place] [address] Jun, [facility] [address] [id number] [address] [place] [address], [place] [address] 18 Jun, 2013 [facility] [address] [id number] [address] [place] [address], [place] [address] 18 Jun, 2013 [facility] [address] [id number] [address] [place] [address], [place] [address] 17 Jun, 2013 [facility] [address] [id number] [address] [place] [address], [place] [address] 17 Jun, 2013 [facility] [address] [id number] [address] [place] [address], [place] [address] 13 Jun, 2013 [facility] [address] [id number] [address] [place] [address], [place] [address] Jun, [facility] [address] [id number] [address] [place] [address], [place] [address] Jun, [facility] [address] [id number] [address] [place] [address], [place] [address] Jun, [facility] [address] [id number] [address] [place] [address], [place] [id number] 05 Jun, 2013 [facility] [address] [id number] [address] [place] [address], [place] [address] 05 Jun, 2013 [facility] [address] [id number] [address] [place] [address], [place] [address] 04 Jun, 2013 [facility] [address] [id number] [address] [place] [address], [place] [address] 04 Jun, 2013 [facility] [address] [id number] [address] [place] [address], [place] [address] 17 May, 2013 [facility] [address] [id number] [address] [place] [address], [place] [address] 17 May, 2013 [facility] [address] [id number] [address] [place] [address], [place] [address] May, [facility] [address] [id number] [address] [place] [address] [address] May, [facility] [address] [id number] [address] [place] [address], [place] [address] May, [facility] [address] [id number] [address] [place] [address], [place] [address] May, [facility] [address] [id number] [address] [place] [address], [place] [address] Apr, [facility] [address] [id number] [address] [place] [address], [place] [address] Apr, [facility] [address] [id number] [address] [place] [address], [place] [address] Apr, [facility] [address] [id number] [address] [place] [address], [place] [address] Apr, [facility] [address] [id number] [address] [place] [address], [place] [address] Apr, [facility] [address] [id number] [address] [place] [address], [place] [address] Apr, [facility] [address] [id number] [address] [place] [address], [place] [address] Apr, [facility] [address] [id number] [address] [place] [address] Apr, [facility] [address] [id number] [address] [place] [id number] 26 Mar, 2012 [facility] [address] [id number] [address] [place] [address] 24 Sep, 2012 [facility] [address] [id number] [address] [place] [address], [place] [address] 17 Sep2012 [facility] [address] [id number] [address] [place] [id number] 17 Sep, 2012 [facility] [address] [id number] [address] [place] [address], [place] [address] 11 Mar, 2013 [facility] [address] [id number] [facility] [place] [address] 10 Mar, 2013 [facility] [address] [id number] [address] [place] [address], [place] [address] 05 Mar, 2013 [facility] [address] [id number] [address] [place] [address], [place] [address] 04 Mar, 2013 [facility] [address] [id number] [address] [place] [address], [place] [address] 20 Jan, 2013 [facility] [address] [id number] [address] [place] [address], [place] [address] Jan, [facility] [address] [id number] [address] [place] [address], [place] [address] 14 Jan, 2013 [facility] [address] [id number] [address] [place] [address], [place] [address] Jan, [facility] [address] [id number] [address] [place] [address], [place] [address] Jan, [facility] [address] [id number] [address] [place] [address], [place] [address] Jan, [facility] [address] [id number] [address] [place] [address], [place] [id number] Dec, [facility] [address] [id number] [address] [place] [address], [place] [address] Dec, [facility] [address] [id number] [address] [place] [address], [place] [address] Dec, [facility] [address] [id number] [address] [place] [address], [place] [address] Dec, [facility] [address] [id number] [address] [place] [address], [place] [address] 18 Dec, 2012 [facility] [address] [id number] [address] [place] [address], [place] [address] 17 Dec, 2012 [facility] [address] [id number] [address] [place] [address], [place] [address] 16 Dec, 2012 [facility] [address] [id number] [address] [place] [address], [place] [address] 16 Dec, 2012 [facility] [address] [id number] [address] [place] [address], [place] [address] 15 Dec, 2012 [facility] [address] [id number] [address] [place] [address], [place] [address] 10 Dec, 2012 [facility] [address] [id number] [address] [place] [address], [place] [address] Dec, [facility] [address] [id number] [address] [place] [address], [place] [address] Dec, [facility] [address] [id number] [address] [place] [address], [place] [id number] Dec, [facility] [address] [id number] [address] [place] [address], [place] [address] Dec, [facility] [address] [id number] [address] [place] [address], [place] [address] Dec, [facility] [address] [id number] [address] [place] [address], [place] [address] Dec, [facility] [address] [id number] [address] [place] [address], [place] [address] October, [facility] [address] [id number] [address] [place] [address], [place] [address] October, [facility] [address] [id number] [address] [place] [address], [place] [id number] October, [facility] [address] [id number] [address] [place] [address], [place] [address] October, [facility] [address] [id number] [address] [place] [address], [place] [address] October, [facility] [address] [id number] [address] [place] [address], [place] [address] October, [facility] [address] [id number] [address] [place] [address], [place] [address] October, [facility] [address] [id number] [address] [place] [address], [place] [address] Oct, [facility] [address] [id number] [address] [place] [address], [place] [address] Oct, [facility] [address] [id number] [address] [place] [address], [place] [address] Oct, [facility] [address] [id number] [address] [place] [address], [place] [address] Oct, [facility] [address] [id number] [address] [place] [address], [place] [address] Oct, [facility] [address] [id number] [address] [place] [address], [place] [id number] Oct, [facility] [address] [id number] [address] [place] [address], [place] [address] Oct, [facility] [address] [id number] [address] [place] [address], [place] [address] 15 Oct, 2012 [facility] [address] [id number] [address] [place] [address], [place] [address] Oct, [facility] [address] [id number] [address] [place] [address], [place] [address] Oct, [facility] [address] [id number] [address] [place] [address], [place] [address] Oct, [facility] [address] [id number] [address] [place] [address], [place] [address] Oct, [facility] [address] [id number] [address] [place] [address], [place] [address] Aug, [facility] [address] [id number] [address] [place] [address], [place] [address] Aug, [facility] [address] [id number] [address] [place] [address], [place] [address] Aug, [facility] [address] [id number] [address] [place] [address], [place] [address] 06 Aug, 2012 [facility] [address] [id number] [address] [place] [address], [place] [id number] 05 Aug, 2012 [facility] [address] [id number] [address] [place] [address], [place] [id number] 05 Aug, 2012 [facility] [address] [id number] [address] [place] [address], [place] [id number] 20 Aug, 2012 [facility] [address] [id number] [address] [place] [address], [place] [id number] 14 Aug, 2012 [facility] [address] [id number] [address] [place] [address], [place] [id number] 12 Aug, 2012 [facility] [address] [id number] [address] [place] [address], [place] [id number] Aug, [facility] [address] [id number] [address] [place] [address], [place] [id number] 29 Jul, 2012 [facility] [address] [id number] [address] [place] [address], [place] [id number] 15 Jul, 2012 [facility] [address] [id number] [address] [place] [address], [place] [id number] 08 Jul, 2012 [facility] [address] [id number] [address] [place] [address], [place] [id number] 20 Jun, 2012 [facility] [address] [id number] [address] [place] [address], [place] [id number] 18 Jun, 2012 [facility] [address] [id number] [address] [place] [address], [place] [id number] 18 Jun, 2012 [facility] [address] [id number] [address] [place] [address], [place] [id number] 18 Jun, 2012 [facility] [address] [id number] [address] [place] [address], [place] [id number] 18 Jun, 2012 [facility] [address] [id number] [address] [place] [address] [address] 14 Jun, 2012 [facility] [address] [id number] [address] [place] [address], [place] [id number] 14 Jun, 2012 [facility] [address] [id number] [address] [place] [address], [place] [id number] 13 Jun, 2012 [facility] [address] [id number] [address] [place] [address], [place] [id number] 13 Jun, 2012 [facility] [address] [id number] [address] [place] [address], [place] [id number] 11 Jun, 2012 [facility] [address] [id number] [address] [place] [address], [place] [id number] 11 Jun, 2012 [facility] [address] [id number] [address] [place] [address], [place] [id number] 11 Jun, 2012 [facility] [address] [id number] [address] [place] [address], [place] [id number] Jun, [facility] [address] [id number] [address] [place] [address], [place] [id number] 07 Jun, 2012 [facility] [address] [id number] [address] [place] [address], [place] [id number] 07 Jun, 2012 [facility] [address] [id number] [address] [place] [address], [place] [id number] 06 Jun, 2012 [facility] [address] [id number] [address] [place] [address], [place] [id number] Jun, [facility] [address] [id number] [address] [place] [address], [place] [id number] Jun, [facility] [address] [id number] [address] [place] [address], [place] [id number] Jun, [facility] [address] [id number] [address] [place] [address], [place] [id number] 05 Jun, 2012 [facility] [address] [id number] [address] [place] [address], [place] [id number] 05 Jun, 2012 [facility] [address] [id number] [address] [place] [address], [place] [id number] Jun, [facility] [address] [id number] [address] [place] [address], [place] [id number] Jun, [facility] [address] [id number] [address] [place] [address], [place] [id number] May, [facility] [address] [id number] [address] [place] [address], [place] [id number] May, [facility] [address] [id number] [address] [place] [address], [place] [id number] May, [facility] [address] [id number] [address] [place] [address], [place] [id number] May, [facility] [address] [id number] [address] [place] [address], [place] [id number] May, [facility] [address] [id number] [address] [place] [address], [place] [id number] May, [facility] [address] [id number] [address] [place] [address], [place] [id number] May, [facility] [address] [id number] [address] [place] [address], [place] [id number] May, [facility] [address] [id number] [address] [place] [address], [place] [id number] Apr, [facility] [address] [id number] [address] [place] [address], [place] [id number] 30 Apr, 2012 [facility] [address] [id number] [address] [place] [address], [place] [id number] 29 Apr, 2012 [facility] [address] [id number] [address] [place] [address], [place] [id number] Apr, [facility] [address] [id number] [address] [place] [address], [place] [id number] Apr, [facility] [address] [id number] [address] [place] [id number] Apr, [facility] [address] [id number] [address] [place] [address], [place] [id number] Apr, [facility] [address] [id number] [address] [place] [address], [place] [id number] Apr, [facility] [address] [id number] [address] [place] [address], [place] [id number] Apr, [facility] [address] [id number] [address] [place] [address], [place] [id number] Apr, [facility] [address] [id number] [address] [place] [address], [place] [id number] Apr, [facility] [address] [id number] [address] [place] [address], [place] [id number] Apr, [facility] [address] [id number] [address] [place] [address], [place] [id number] Mar, [facility] [address] [id number] [address] [place] [address], [place] [id number] 18 Mar, 2012 [facility] [address] [id number] [address] [place] [address], [place] [id number] Mar, [facility] [address] [id number] [address] [place] [id number] Mar, [facility] [address] [id number] [address] [place] [id number] Mar, [facility] [address] [id number] [address] [place] [id number] Mar, [facility] [address] [id number] [address] [place] [id number] Mar, [facility] [address] [id number] [address] [place] [id number] Jan, [facility] [address] [id number] [address] [place] [id number] Jan, [facility] [address] [id number] [address] [place] [id number] Jan, [facility] [address] [id number] [address] [place] [address], [place] [id number] Jan, [facility] [address] [id number] [address] [place] [address], [place] [id number] Jan, [facility] [address] [id number] [address] [place] [address], [place] [id number] Jan, [facility] [address] [id number] [address] [place] [address], [place] [id number] Jan, [facility] [address] [id number] [address] [place] [address], [place] [id number] Jan, [facility] [address] [id number] [address] [place] [address], [place] [id number] Jan, [facility] [address] [id number] [address] [place] [address], [place] [id number] Jan, [facility] [address] [id number] [address] [place] [address], [place] [id number] Jan, [facility] [address] [id number] [address] [place] [address], [place] [id number] Dec, [facility] [address] [id number] [address] [place] [address], [place] [id number] Dec, [facility] [address] [id number] [address] [place] [address], [place] [id number] Dec, [facility] [address] [id number] [address] [place] [address], [place] [id number] Dec, [facility] [address] [id number] [address] [place] [address], [place] [id number] Dec, [facility] [address] [id number] [address] [place] [address], [place] [address] Dec, [facility] [address] [id number] [address] [place] [address], [place] [id number] Dec, [facility] [address] [id number] [facility] [id number] 17 Jan, 2012 [facility] [address] [id number] [address] [place] [address], [place] [id number] 16 Jan, 2012 [facility] [address] [id number] [address] [place] [address], [place] [id number] 13 Jan, 2012 [facility] [address] [id number] [address] [place] [address], [place] [id number] 13 Jan, 2012 [facility] [address] [id number] [address] [place] [address], [place] [address] Dec, [facility] [address] [id number] [address] [place] [address], [place] [id number] Dec, [facility] [address] [id number] [address] [place] [address], [place] [id number] Dec, [facility] [address] [id number] [address] [place] [address], [place] [id number] Dec, [facility] [address] [id number] [address] [place] [address], [place] [address] Dec, [facility] [address] [id number] [address] [place] [address], [place] [id number] 15 Dec, 2011 [facility] [address] [id number] [address] [place] [address], [place] [id number] 06 Dec, 2011 [facility] [address] [id number] [address] [place] [address], [place] [id number] 05 Dec, 2011 [facility] [address] [id number] [address] [place] [address], [place] [id number] October, [facility] [address] [id number] [address] [place] [address], [place] [id number] October, [facility] [address] [id number] [address] [place] [address], [place] [id number] October, [facility] [address] [id number] [address] [place] [address], [place] [address] October, [facility] [address] [id number] [address] [place] [address], [place] [id number] October, [facility] [address] [id number] [address] [place] [address], [place] [address] October, [facility] [address] [id number] [address] [place] [address], [place] [id number] Oct, [facility] [address] [id number] [address] [place] [address], [place] [address] Oct, [facility] [address] [id number] [address] [place] [address], [place] [id number] Oct, [facility] [address] [id number] [address] [place] [address], [place] [address] Oct, [facility] [address] [id number] [address] [place] [address], [place] [address] Oct, [facility] [address] [id number] [address] [place] [address], [place] [id number] Oct, [facility] [address] [id number] [address] [place] [address], [place] [address] Oct, [facility] [address] [id number] [address] [place] [address], [place] [id number] Aug, [facility] [address] [id number] [address] [place] [address], [place] [address] Aug, [facility] [address] [id number] [address] [place] [address], [place] [id number] Aug, [facility] [address] [id number] [address] [place] [address], [place] [address] Aug, [facility] [address] [id number] [address] [place] [address], [place] [id number] Aug, [facility] [address] [id number] [address] [place] [address], [place] [id number] Aug, [facility] [address] [id number] [address] [place] [address], [place] [address] Aug, [facility] [address] [id number] [address] [place] [address], [place] [address] Aug, [facility] [address] [id number] [address] [place] [address], [place] [id number] 08 Aug, 2011 [facility] [address] [id number] [address] [place] [address], [place] [address] Jul, [facility] [address] [id number] [address] [place] [address], [place] [id number] Jul, [facility] [address] [id number] [address] [place] [address], [place] [address] Jul, [facility] [address] [id number] [address] [place] [address], [place] [address] Jul, [facility] [address] [id number] [address] [place] [address], [place] [address] Jun, [facility] [address] [id number] [address] [place] [address], [place] [id number] Jun, [facility] [address] [id number] [address] [place] [address], [place] [address] May, [facility] [address] [id number] [address] [place] [address], [place] [id number] May, [facility] [address] [id number] [address] [place] [address], [place] [address] May, [facility] [address] [id number] [address] [place] [address], [place] [address] May, [facility] [address] [id number] [address] [place] [address], [place] [id number] May, [facility] [address] [id number] [address] [place] [address], [place] [id number] 28 Apr, 2011 [facility] [address] [id number] [address] [place] [address], [place] [address] Apr, [facility] [address] [id number] [address] [place] [id number] Apr, [facility] [address] [id number] [address] [place] [id number] Jan, [facility] [address] [id number] [address] [place] [id number] Dec, [facility] [address] [id number] [address] [place] [id number] October, [facility] [address] [id number] [address] [place] [id number] Jun, [facility] [address] [id number] [address] [place] [id number] Apr, [facility] [address] [id number] [address] [place] [id number] Apr, [facility] [address] [id number] [address] [place] [id number] Apr, [facility] [address] [id number] [address] [place] [id number] Jun, IMMUNIZATIONS No Known Immunizations SOCIAL HISTORY [...]
--- OUTSIDE RECORDS SUMMARY | 2020-01-25 13:26 | XMS REPORT ---
Author Author Moreno Ana Doctor Organization [facility] Address Unknown Phone Unavailable Care Team Providers Care Web Content Coordinator Name Role Phone Migration, Doctor Unavailable Unavailable PROBLEMS Type Condition ICD9-CM Code NWN04-PE Code Onset Dates Condition S tatus SNOMED Code Problem Chronic hepatitis C without hepatic coma B18.2 Active 737317089 Problem Cannabis abuse F12.10 Active 37527 009 Problem Bipolar 1 disorder F31.9 Active 3 19285992 Problem Attention deficit hyperactivity disorder (ADHD), combi luciano type F90.2 Active 21946999 Problem Attention deficit R41.840 Active 76 272509 Problem Hot flashes due to menopause N95.1 A ctive 137256908 Problem H/O laminectomy Z98.89 Active 1616 90368 Problem Other chronic pain G89.29 Active 8 9143817 Problem Anxiety disorder, unspecified type F41.9 Active 697623368 Problem Bipolar disorder, in partial remission, most rec ent episode hypomanic F31.71 Active [id number] ALLERGIES No Information ENCOUNTERS Encounter Location Date Diagnosis [facility] [address] [id number] [address] [place] [id number] Oct, [facility] [address] [facility] [id number] [address] [place] [phone] Oct, [facility] [address] [facility] [id number] [address] [place] [id number] Aug, [facility] [address] [facility] [id number] [address] [place] [id number] Jul, [facility] [address] [facility] [id number] [address] [place] [phone] Jul, [facility] [address] [facility] [id number] [address] [place] [phone] Apr, [facility] [address] [facility] [id number] [address] [place] [phone] Mar, Hot flashes due to menopause N95.1 ; Anxiety disorder, unspecified type F41.9 ; Low back pain M54.5 and Encounter for immunization Z23 [facility] [address] [facility] [id number] [address] [place] [address] Dec, Other chronic pain G89.29 an d Low back pain M54.5 [facility] [address] [facility] [id number] [address] [place] [address] October, [facility] [address] [facility] [id number] [address] [place] [phone] October, [facility] [address] [facility] [id number] [address] [place] [address] October, [facility] [address] [facility] [id number] [address] [place] [phone] October, Other chronic pain G89.29 an d Chronic hepatitis C without hepatic coma B18.2 [facility] [address] [facility] [id number] [address] [place] [address] Aug, Bipolar disorder, in partial remission, most recent episode hypomanic F31.71 ; Attention deficit hyperactivity disorder (ADHD), combined type F90.2 and Anxiety disorder, unspecified type F41.9 [facility] [address] [facility] [id number] [address] [place] [phone] Aug, [facility] [address] [facility] [id number] [address] [place] [address] Aug, Bipolar disorder, in partial remission, most recent episode hypomanic F31.71 [facility] [address] [facility] [id number] [address] [place] [id number] Aug, [facility] [address] [facility] [id number] [address] [place] [address] Aug, Bipolar disorder, in partial remission, most recent episode hypomanic F31.71 [facility] [address] [facility] [id number] [address] [place] [address] Aug, Bipolar disorder, in partial remission, most recent episode hypomanic F31.71 ; Attention deficit hyperactivity disorder (ADHD), combined type F90.2 and Anxiety disorder, unspecified type F41.9 [facility] [address] [id number] [address] [place] [address] Aug, Low back pain M54.5 and Pain in left wrist M25.532 [facility] [address] [id number] [address] [place] [address] Aug, [facility] [address] [id number] [address] [place] [address] Jun, [facility] [address] [id number] [address] [place] [address] Apr, Bipolar disorder, in partial remission, most recent episode hypomanic F31.71 [facility] [address] [id number] [address] [place] [id number] Apr, [facility] [address] [id number] [address] [place] [address] Apr, Bipolar disorder, in partial remission, most recent episode hypomanic F31.71 ; Attention deficit hyperactivity disorder (ADHD), combined type F90.2 ; Anxiety disorder, unspecified type F41.9 and 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 Z79.899 [facility] [address] [id number] [address] [place] [address] Apr, Bipolar disorder, in partial remission, most recent episode hypomanic F31.71 [facility] [address] [id number] [address] [place] [address] Apr, Bipolar disorder, in partial remission, most recent episode hypomanic F31.71 [facility] [address] [id number] [address] [place] [address] Mar, [facility] [address] [id number] [address] [place] [address] Mar, Bipolar disorder, in partial remission, most recent episode hypomanic F31.71 ; Encounter for immunization Z23 and Low back pain M54.5 [facility] [address] [id number] [address] [place] [id number] Mar, Bipolar disorder, in partial remission, most recent episode hypomanic F31.71 [facility] [address] [id number] [address] [place] [address] Mar, Bipolar disorder, in partial remission, most recent episode hypomanic F31.71 [facility] [address] [id number] [address] [place] [id number] Jan, Bipolar disorder, in partial remission, most recent episode hypomanic F31.71 [facility] [address] [id number] [address] [place] [address] Jan, Bipolar disorder, in partial remission, most recent episode hypomanic F31.71 [facility] [address] [facility] [id number] [address] [place] [address] Dec, Bipolar disorder, in partial remission, most recent episode hypomanic F31.71 [facility] [address] [id number] [address] [place] [address] Dec, Bipolar disorder, in partial remission, most recent episode hypomanic F31.71 ; Attention deficit hyperactivity disorder (ADHD), combined type F90.2 ; Anxiety disorder, unspecified type F41.9 and Other nursing home (current) drug therapy Z79.899 [facility] [address] [id number] [address] [place] [address] Dec, Bipolar disorder, in partial remission, most recent episode hypomanic F31.71 [facility] [address] [id number] [address] [place] [id number] Dec, Bipolar disorder, in partial remission, most recent episode hypomanic F31.71 [facility] [address] [id number] [address] [place] [phone] October, Bipolar disorder, in partial remission, most recent episode hypomanic F31.71 [facility] [address] [id number] [address] [place] [phone] October, [facility] [address] [id number] [address] [place] [address] October, [facility] [address] [id number] [address] [place] [phone] Oct, Bipolar disorder, in partial remission, most recent episode hypomanic F31.71 ; Attention deficit hyperactivity disorder (ADHD), combined type F90.2 ; Anxiety disorder, unspecified type F41.9 and Encounter for drug screening Z02.83 [facility] [address] [id number] [address] [place] [id number] Oct, Bipolar disorder, in partial remission, most recent episode hypomanic F31.71 [facility] [address] [facility] [id number] [address] [place] [phone] Oct, Bipolar disorder, in partial remission, most recent episode hypomanic F31.71 [facility] [address] [facility] [id number] [address] [place] [phone] Aug, Bipolar disorder, in partial remission, most recent episode hypomanic F31.71 [facility] [address] [facility] [id number] [address] [place] [phone] Aug, Bipolar disorder, in partial remission, most recent episode hypomanic F31.71 [facility] [address] [facility] [id number] [address] [place] [phone] Aug, Bipolar disorder, in partial remission, most recent episode hypomanic F31.71 [facility] [address] [id number] [address] [place] [id number] Jul, Bipolar disorder, in partial remission, most recent episode hypomanic F31.71 ; Attention deficit hyperactivity disorder (ADHD), combined type F90.2 and Anxiety disorder, unspecified type F41.9 [facility] [address] [id number] [address] [place] [address] Jul, Bipolar disorder, in partial remission, most recent episode hypomanic F31.71 [facility] [address] [id number] [address] [place] [address] Jun, Bipolar disorder, in partial remission, most recent episode hypomanic F31.71 [facility] [address] [id number] [address] [place] [address] May, Bipolar disorder, in partial remission, most recent episode hypomanic F31.71 [facility] [address] [id number] [address] [place] [address] May, Bipolar disorder, in partial remission, most recent episode hypomanic F31.71 [facility] [address] [id number] [address] [place] [phone] Apr, [facility] [address] [facility] [id number] [address] [place] [id number] Apr, Bipolar disorder, in partial remission, most recent episode hypomanic F31.71 ; Attention deficit hyperactivity disorder (ADHD), combined type F90.2 ; Anxiety disorder, unspecified type F41.9 and Cannabis abuse F12.10 [facility] [address] [id number] [address] [place] [id number] Apr, Attention deficit hyperactiv ity disorder (ADHD), combined type F90.2 [facility] [address] [facility] [id number] [address] [place] [phone] Mar, Attention deficit hyperactiv ity disorder (ADHD), combined type F90.2 [facility] [address] [facility] [id number] [address] [place] [id number] 14 Mar, 2017 Anxiety disorder, unspecifie d type F41.9 [facility] [address] [facility] [id number] [address] [place] [phone] 18 Jan, 2017 Attention deficit hyperactiv ity disorder (ADHD), combined type F90.2 [facility] [address] [facility] [id number] [address] [place] [phone] 16 Jan, 2017 Anxiety disorder, unspecifie d type F41.9 [place] [id number] [facility] [id number] [address] [place] [id number] Jan, Other chronic pain G89.29 ; Chronic hepatitis C without hepatic coma B18.2 and Bipolar 1 disorder F31.9 [facility] [address] [facility] [id number] [address] [place] [address] Dec, Attention deficit hyperactiv ity disorder (ADHD), combined type F90.2 [facility] [address] [facility] [id number] [address] [place] [address] Dec, Bipolar disorder, in partial remission, most recent episode hypomanic F31.71 ; Attention deficit hyperactivity disorder (ADHD), combined type F90.2 and Anxiety disorder, unspecified type F41.9 [place] [address] [facility] [id number] [address] [place] [phone] Dec, Bipolar disorder, in partial remission, most recent episode hypomanic F31.71 ; Attention deficit hyperactivity disorder (ADHD), combined type F90.2 and Anxiety disorder, unspecified type F41.9 [facility] [address] [place] [id number] [address] [place] [id number] Dec, Bipolar 1 disorder F31.9 and Attention deficit R41.840 [place] [address] [place] [id number] [address] [place] [id number] Oct, Other chronic pain G89.29 ; Alopecia L65.9 and Screening, lipid Z13.220 [place] [address] [facility] [id number] [address] [place] [phone] Oct, [place] [address] [place] [id number] [address] [place] [phone] Aug, [place] [address] [place] [id number] [address] [place] [id number] Aug, Eustachian tube dysfunction, right H69.81 ; Vertigo R42 and Other chronic pain G89.29 [place] [address] [place] [id number] [address] [place] [phone] Aug, [facility] [address] [id number] [address] [place] [id number] Jun, [facility] [address] [id number] [address] [place] [id number] Jun, Low back pain M54.5 and Othe r chronic pain G89.29 [facility] [address] [id number] [address] [place] [phone] Jun, [facility] [address] [id number] [address] [place] [id number] May, [facility] [address] [id number] [address] [place] [phone] Jan, [facility] [address] [id number] [address] [place] [phone] Dec, [facility] [address] [id number] [address] [place] [id number] Dec, [facility] [address] [id number] [address] [place] [phone] Jun, [facility] [address] [id number] [address] [place] [phone] Apr, Eustachian tube dysfunction, unspecified laterality H69.80 ; Hot flashes N95.1 and Encounter for immunization Z23 [facility] [address] [id number] [address] [place] [phone] Jan, [facility] [address] [id number] [address] [place] [phone] Jan, [facility] [address] [id number] [address] [place] [phone] Jan, [facility] [address] [facility] [id number] [address] [place] [phone] Jan, [facility] [address] [id number] [address] [place] [phone] Jan, Encounter to establish care V65.8 ; Bipolar 1 disorder 296.7 ; Abdominal pain 789.00 ; Constipation 564.00 ; Hard of hearing 389.9 and Drug abuse 305.90 [facility] [address] [id number] [address] [place] [address] Dec, [facility] [address] [facility] [id number] [address] [place] [phone] October, [facility] [address] [id number] [address] [place] [id number] October, [facility] [address] [id number] [address] [place] [address] Oct, [facility] [address] [id number] [address] [place] [phone] Oct, [facility] [address] [facility] [id number] [address] [place] [phone] Oct, [facility] [address] [id number] [address] [place] [phone] Aug, [facility] [address] [id number] [address] [place] [phone] Aug, [facility] [address] [facility] [id number] [address] [place] [address] Aug, [facility] [address] [id number] [address] [place] [phone] Aug, [facility] [address] [id number] [address] [place] [id number] Aug, [facility] [address] [id number] [address] [place] [phone] Aug, [facility] [address] [id number] [address] [place] [phone] Aug, [facility] [address] [id number] [address] [place] [phone] Aug, [facility] [address] [id number] [address] [place] [address], [place] [address] Aug, 2014 [facility] [address] [id number] [address] [place] [address], [place] [address] Aug, 2014 [facility] [address] [id number] [address] [place] [address], [place] [address] Aug, 2014 [facility] [address] [id number] [address] [place] [address], [place] [address] Aug, 2014 [facility] [address] [id number] [address] [place] [address], [place] [address] Aug, 2014 [facility] [address] [id number] [address] [place] [address], [place] [address] Aug, 2014 [facility] [address] [id number] [address] [place] [address], [place] [address] Aug, [facility] [address] [id number] [address] [place] [address], [place] [address] Jul, [facility] [address] [id number] [address] [place] [address], [place] [address] Jul, [facility] [address] [id number] [address] [place] [address], [place] [address] Jul, [facility] [address] [id number] [address] [place] [address], [place] [address] Jul, [facility] [address] [id number] [address] [place] [address], [place] [address] Jul, [facility] [address] [id number] [address] [place] [address], [place] [address] Jul, [facility] [address] [id number] [address] [place] [address], [place] [address] Jul, [facility] [address] [id number] [address] [place] [address], [place] [address] Jul, [facility] [address] [id number] [address] [place] [address], [place] [address] Jun, [facility] [address] [id number] [address] [place] [address], [place] [address] Jun, [facility] [address] [id number] [address] [place] [address], [place] [address] Jun, [facility] [address] [id number] [address] [place] [address], [place] [address] Jun, [facility] [address] [id number] [address] [place] [address], [place] [address] Jun, [facility] [address] [id number] [address] [place] [address], [place] [address] Jun, [facility] [address] [id number] [address] [place] [address], [place] [address] Jun, [facility] [address] [id number] [address] [place] [address], [place] [address] Jun, [facility] [address] [id number] [address] [place] [address], [place] [address] Jun, [facility] [address] [id number] [address] [place] [address], [place] [address] Jun, [facility] [address] [id number] [address] [place] [address], [place] [address] Jun, [facility] [address] [id number] [address] [place] [address], [place] [address] May, [facility] [address] [id number] [address] [place] [address], [place] [address] May, [facility] [address] [id number] [address] [place] [address], [place] [address] May, [facility] [address] [id number] [address] [place] [address], [place] [address] May, [facility] [address] [id number] [address] [place] [address], [place] [address] May, [facility] [address] [id number] [address] [place] [address], [place] [address] May, [facility] [address] [id number] [address] [place] [address], [place] [address] May, [facility] [address] [id number] [address] [place] [address], [place] [address] Apr, [facility] [address] [id number] [address] [place] [address], [place] [address] Apr, [facility] [address] [id number] [address] [place] [address], [place] [address] Apr, [facility] [address] [id number] [address] [place] [address], [place] [address] Apr, [facility] [address] [id number] [address] [place] [address], [place] [address] Apr, [facility] [address] [id number] [address] [place] [address], [place] [address] Apr, [facility] [address] [id number] [address] [place] [address], [place] [address] Mar, [facility] [address] [id number] [address] [place] [address], [place] [address] Mar, [facility] [address] [id number] [address] [place] [address], [place] [address] Mar, [facility] [address] [id number] [address] [place] [address], [place] [address] Mar, [facility] [address] [id number] [address] [place] [address], [place] [address] Mar, [facility] [address] [id number] [address] [place] [address], [place] [address] Mar, [facility] [address] [id number] [address] [place] [address], [place] [address] Jan, [facility] [address] [id number] [address] [place] [address], [place] [address] Jan, [facility] [address] [id number] [address] [place] [address], [place] [address] Jan, [facility] [address] [id number] [address] [place] [address], [place] [address] Jan, [facility] [address] [id number] [address] [place] [address], [place] [address] Dec, [facility] [address] [id number] [address] [place] [address], [place] [address] Dec, [facility] [address] [id number] [address] [place] [address], [place] [address] Dec, [facility] [address] [id number] [address] [place] [address], [place] [address] Dec, [facility] [address] [id number] [address] [place] [address], [place] [address] Dec, [facility] [address] [id number] [address] [place] [address], [place] [address] Dec, [facility] [address] [id number] [address] [place] [address], [place] [address] Dec, [facility] [address] [id number] [address] [place] [address], [place] [address] Dec, [facility] [address] [id number] [address] [place] [address], [place] [address] Dec, [facility] [address] [id number] [address] [place] [address], [place] [address] Dec, [facility] [address] [id number] [address] [place] [address], [place] [address] Dec, [facility] [address] [id number] [address] [place] [address], [place] [address] Dec, [facility] [address] [id number] [address] [place] [address], [place] [address] October, [facility] [address] [id number] [address] [place] [address], [place] [address] October, [facility] [address] [id number] [address] [place] [address], [place] [address] October, [facility] [address] [id number] [address] [place] [address], [place] [address] October, [facility] [address] [id number] [address] [place] [address], [place] [address] October, [facility] [address] [id number] [address] [place] [address], [place] [address] October, [facility] [address] [id number] [address] [place] [address], [place] [address] Oct, [facility] [address] [id number] [address] [place] [address], [place] [address] Oct, [facility] [address] [id number] [address] [place] [address], [place] [address] Oct, [facility] [address] [id number] [address] [place] [address], [place] [address] Oct, [facility] [address] [id number] [address] [place] [address], [place] [address] Oct, [facility] [address] [id number] [address] [place] [address], [place] [address] Oct, [facility] [address] [id number] [address] [place] [address], [place] [address] Oct, [facility] [address] [id number] [address] [place] [address], [place] [address] Oct, [facility] [address] [id number] [address] [place] [address], [place] [address] Oct, [facility] [address] [id number] [address] [place] [address], [place] [address] Oct, [facility] [address] [id number] [address] [place] [address], [place] [address] Oct, [facility] [address] [id number] [facility] [address] 08 Oct, 2013 [facility] [address] [id number] [facility] [address] 15 Aug, 2013 [facility] [address] [id number] [facility] [address] 15 Aug, 2013 [facility] [address] [id number] [address] [place] [address], [place] [address] Aug, [facility] [address] [id number] [address] [place] [address], [place] [address] Aug, [facility] [address] [id number] [address] [place] [address], [place] [address] Aug, [facility] [address] [id number] [address] [place] [address], [place] [address] Aug, [facility] [address] [id number] [address] [place] [address], [place] [address] Aug, [facility] [address] [id number] [address] [place] [address], [place] [address] Aug, [facility] [address] [id number] [address] [place] [address], [place] [address] Aug, [facility] [address] [id number] [address] [place] [address], [place] [address] Aug, [facility] [address] [id number] [address] [place] [address], [place] [address] Aug, [facility] [address] [id number] [address] [place] [address], [place] [address] Aug, [facility] [address] [id number] [address] [place] [address], [place] [address] Aug, [facility] [address] [id number] [address] [place] [address], [place] [address] Aug, [facility] [address] [id number] [address] [place] [address], [place] [address] 14 Aug, 2013 [facility] [address] [id number] [address] [place] [address], [place] [address] 14 Aug, 2013 [facility] [address] [id number] [address] [place] [address], [place] [address] 14 Aug, 2013 [facility] [address] [id number] [address] [place] [address], [place] [address] 14 Aug, 2013 [facility] [address] [id number] [address] [place] [address], [place] [address] 07 Aug, 2013 [facility] [address] [id number] [address] [place] [address], [place] [address] 07 Aug, 2013 [facility] [address] [id number] [address] [place] [address], [place] [address] 06 Aug, 2013 [facility] [address] [id number] [address] [place] [address], [place] [address] 06 Aug, 2013 [facility] [address] [id number] [address] [place] [address], [place] [address] 04 Aug, 2013 [facility] [address] [id number] [address] [place] [address], [place] [address] 04 Aug, 2013 [facility] [address] [id number] [address] [place] [address], [place] [address] Aug, [facility] [address] [id number] [address] [place] [address], [place] [address] Jul, [facility] [address] [id number] [address] [place] [address], [place] [address] Jul, [facility] [address] [id number] [address] [place] [address], [place] [address] Jul, [facility] [address] [id number] [address] [place] [address], [place] [address] Jul, [facility] [address] [id number] [address] [place] [address], [place] [address] Jul, [facility] [address] [id number] [address] [place] [address], [place] [address] Jul, [facility] [address] [id number] [address] [place] [address], [place] [address] Jul, [facility] [address] [id number] [address] [place] [address], [place] [address] Jul, [facility] [address] [id number] [address] [place] [address], [place] [address] Jul, [facility] [address] [id number] [address] [place] [address], [place] [address] Jul, [facility] [address] [id number] [address] [place] [address], [place] [address] Jul, [facility] [address] [id number] [address] [place] [address], [place] [address] Jul, [facility] [address] [id number] [address] [place] [address], [place] [address] Jul, [facility] [address] [id number] [address] [place] [address], [place] [address] Jul, [facility] [address] [id number] [address] [place] [address], [place] [address] Jul, [facility] [address] [id number] [address] [place] [address], [place] [address] Jul, [facility] [address] [id number] [address] [place] [address], [place] [address] Jul, [facility] [address] [id number] [address] [place] [address], [place] [address] Jul, [facility] [address] [id number] [address] [place] [address], [place] [address] Jul, [facility] [address] [id number] [address] [place] [address], [place] [address] Jul, [facility] [address] [id number] [address] [place] [address], [place] [address] 31 Jun, 2013 [facility] [address] [id number] [address] [place] [address], [place] [address] 31 Jun, 2013 [facility] [address] [id number] [address] [place] [address], [place] [address] Jun, [facility] [address] [id number] [address] [place] [address], [place] [address] Jun, [facility] [address] [id number] [address] [place] [address], [place] [address] Jun, [facility] [address] [id number] [address] [place] [address], [place] [address] Jun, [facility] [address] [id number] [address] [place] [address], [place] [address] Jun, [facility] [address] [id number] [address] [place] [address], [place] [address] Jun, [facility] [address] [id number] [address] [place] [address], [place] [address] Jun, [facility] [address] [id number] [address] [place] [address], [place] [address] Jun, [facility] [address] [id number] [address] [place] [address], [place] [address] Jun, [facility] [address] [id number] [address] [place] [address], [place] [address] Jun, [facility] [address] [id number] [address] [place] [address], [place] [address] Jun, [facility] [address] [id number] [address] [place] [address], [place] [address] Jun, [facility] [address] [id number] [address] [place] [address], [place] [address] Jun, [facility] [address] [id number] [address] [place] [address], [place] [address] 18 Jun, 2013 [facility] [address] [id number] [address] [place] [address], [place] [address] 18 Jun, 2013 [facility] [address] [id number] [address] [place] [address], [place] [address] 17 Jun, 2013 [facility] [address] [id number] [address] [place] [address], [place] [address] 17 Jun, 2013 [facility] [address] [id number] [address] [place] [address], [place] [address] 13 Jun, 2013 [facility] [address] [id number] [address] [place] [address], [place] [address] 12 Jun, 2013 [facility] [address] [id number] [address] [place] [address], [place] [address] 12 Jun, 2013 [facility] [address] [id number] [address] [place] [address], [place] [address] 09 Jun, 2013 [facility] [address] [id number] [address] [place] [address], [place] [address] 05 Jun, 2013 [facility] [address] [id number] [address] [place] [address], [place] [address] 05 Jun, 2013 [facility] [address] [id number] [address] [place] [address], [place] [address] 04 Jun, 2013 [facility] [address] [id number] [address] [place] [address], [place] [address] 04 Jun, 2013 [facility] [address] [id number] [address] [place] [address], [place] [address] May, [facility] [address] [id number] [address] [place] [address], [place] [address] 17 May, 2013 [facility] [address] [id number] [address] [place] [address], [place] [address] May, [facility] [address] [id number] [address] [place] [address], [place] [address] May, [facility] [address] [id number] [address] [place] [address] [address] May, [facility] [address] [id number] [address] [place] [address], [place] [address] May, [facility] [address] [id number] [address] [place] [address], [place] [address] Apr, [facility] [address] [id number] [address] [place] [address], [place] [address] Apr, [facility] [address] [id number] [address] [place] [address], [place] [address] Apr, [facility] [address] [id number] [address] [place] [address], [place] [address] Apr, [facility] [address] [id number] [address] [place] [address], [place] [address] Apr, [facility] [address] [id number] [address] [place] [address], [place] [address] Apr, [facility] [address] [id number] [address] [place] [address], [place] [address] 15 Apr, 2013 [facility] [address] [id number] [address] [place] [address], [place] [address] Apr, [facility] [address] [id number] [address] [place] [address] 26 Mar, 2013 [facility] [address] [id number] [address] [place] [address] 24 Sep, 2012 [facility] [address] [id number] [address] [place] [address] 17 Sep, 2012 [facility] [address] [id number] [address] [place] [address], [place] [address] 17 Sep, 2012 [facility] [address] [id number] [address] [place] [address] 11 Sep, 2012 [facility] [address] [id number] [address] [place] [address], [place] [address] 10 Mar, 2012 [facility] [address] [id number] [address] [place] [address], [place] [address] 05 Mar, 2013 [facility] [address] [id number] [address] [place] [address], [place] [address] 04 Mar, 2013 [facility] [address] [id number] [address] [place] [address], [place] [address] Jan, [facility] [address] [id number] [address] [place] [address], [place] [address] Jan, [facility] [address] [id number] [address] [place] [address], [place] [address] Jan, [facility] [address] [id number] [address] [place] [address], [place] [address] Jan, [facility] [address] [id number] [address] [place] [address], [place] [address] Jan, [facility] [address] [id number] [address] [place] [address], [place] [address] Jan, [facility] [address] [id number] [address] [place] [address], [place] [address] Dec, [facility] [address] [id number] [address] [place] [address], [place] [address] 24 Dec, 2012 [facility] [address] [id number] [address] [place] [address], [place] [address] Dec, [facility] [address] [id number] [address] [place] [address], [place] [address] Dec, [facility] [address] [id number] [address] [place] [address], [place] [address] 18 Dec, 2012 [facility] [address] [id number] [address] [place] [address], [place] [address] 17 Dec, 2012 [facility] [address] [id number] [address] [place] [address], [place] [address] 16 Dec, 2012 [facility] [address] [id number] [address] [place] [address], [place] [address] 16 Dec, 2012 [facility] [address] [id number] [address] [place] [address], [place] [address] 15 Dec, 2012 [facility] [address] [id number] [address] [place] [address], [place] [address] Dec, [facility] [address] [id number] [address] [place] [address], [place] [address] Dec, [facility] [address] [id number] [address] [place] [address], [place] [address] Dec, [facility] [address] [id number] [address] [place] [address], [place] [address] Dec, [facility] [address] [id number] [address] [place] [address], [place] [address] Dec, [facility] [address] [id number] [address] [place] [address], [place] [address] Dec, [facility] [address] [id number] [address] [place] [address], [place] [address] Dec, [facility] [address] [id number] [address] [place] [address], [place] [address] October, [facility] [address] [id number] [address] [place] [address], [place] [address] October, [facility] [address] [id number] [address] [place] [address], [place] [address] October, [facility] [address] [id number] [address] [place] [address], [place] [address] October, [facility] [address] [id number] [address] [place] [address], [place] [address] October, [facility] [address] [id number] [address] [place] [address], [place] [address] October, [facility] [address] [id number] [address] [place] [address], [place] [address] October, [facility] [address] [id number] [address] [place] [address], [place] [address] 29 Oct, 2012 [facility] [address] [id number] [address] [place] [address], [place] [address] Oct, [facility] [address] [id number] [address] [place] [address], [place] [address] 24 Oct, 2012 [facility] [address] [id number] [address] [place] [address], [place] [address] Oct, [facility] [address] [id number] [address] [place] [address], [place] [address] Oct, [facility] [address] [id number] [address] [place] [address], [place] [address] 18 Oct, 2012 [facility] [address] [id number] [address] [place] [address], [place] [address] 17 Oct, 2012 [facility] [address] [id number] [address] [place] [address], [place] [address] 15 Oct, 2012 [facility] [address] [id number] [address] [place] [address], [place] [address] Oct, [facility] [address] [id number] [address] [place] [address], [place] [address] Oct, [facility] [address] [id number] [address] [place] [address], [place] [address] Oct, [facility] [address] [id number] [address] [place] [address], [place] [address] Oct, [facility] [address] [id number] [address] [place] [address], [place] [address] Aug, [facility] [address] [id number] [address] [place] [address], [place] [address] Aug, [facility] [address] [id number] [address] [place] [address], [place] [address] Aug, [facility] [address] [id number] [address] [place] [address], [place] [address] Aug, [facility] [address] [id number] [address] [place] [address], [place] [address] 05 Aug, 2012 [facility] [address] [id number] [address] [place] [address], [place] [address] 05 Aug, 2012 [facility] [address] [id number] [address] [place] [address], [place] [address] 20 Aug, 2012 [facility] [address] [id number] [address] [place] [address], [place] [address] 14 Aug, 2012 [facility] [address] [id number] [address] [place] [address], [place] [address] 12 Aug, 2012 [facility] [address] [id number] [address] [place] [address], [place] [address] 11 Aug, 2012 [facility] [address] [id number] [address] [place] [address], [place] [address] 29 Jul, 2012 [facility] [address] [id number] [address] [place] [address], [place] [address] 15 Jul, 2012 [facility] [address] [id number] [address] [place] [address], [place] [address] 08 Jul, 2012 [facility] [address] [id number] [address] [place] [address], [place] [address] 20 Jun, 2012 [facility] [address] [id number] [address] [place] [address], [place] [address] 18 Jun, 2012 [facility] [address] [id number] [address] [place] [address], [place] [address] 18 Jun, 2012 [facility] [address] [id number] [address] [place] [address], [place] [address] 18 Jun, 2012 [facility] [address] [id number] [address] [place] [address], [place] [address] 18 Jun, 2012 [facility] [address] [id number] [address] [place] [address], [place] [address] 14 Jun, 2012 [facility] [address] [id number] [address] [place] [address] [address] 14 Jun, 2012 [facility] [address] [id number] [address] [place] [address], [place] [address] 13 Jun, 2012 [facility] [address] [id number] [address] [place] [address], [place] [address] 13 Jun, 2012 [facility] [address] [id number] [address] [place] [address], [place] [address] 11 Jun, 2012 [facility] [address] [id number] [address] [place] [address], [place] [address] 11 Jun, 2012 [facility] [address] [id number] [address] [place] [address], [place] [address] Jun, [facility] [address] [id number] [address] [place] [address], [place] [address] Jun, [facility] [address] [id number] [address] [place] [address], [place] [address] 07 Jun, 2012 [facility] [address] [id number] [address] [place] [address], [place] [address] 07 Jun, 2012 [facility] [address] [id number] [address] [place] [address], [place] [address] Jun, [facility] [address] [id number] [address] [place] [address], [place] [address] 06 Jun, 2012 [facility] [address] [id number] [address] [place] [address], [place] [address] Jun, [facility] [address] [id number] [address] [place] [address], [place] [address] Jun, [facility] [address] [id number] 97 [place] [address], [place] [address] Jun, [facility] [address] [id number] [address] [place] [address], [place] [address] 05 Jun, 2012 [facility] [address] [id number] [address] [place] [address], [place] [address] Jun, [facility] [address] [id number] [address] [place] [address], [place] [address] Jun, [facility] [address] [id number] [address] [place] [address], [place] [address] May, [facility] [address] [id number] [address] [place] [address], [place] [address] May, [facility] [address] [id number] [address] [place] [address], [place] [address] May, [facility] [address] [id number] [address] [place] [address], [place] [address] May, [facility] [address] [id number] [address] [place] [address], [place] [address] May, [facility] [address] [id number] [address] [place] [address], [place] [address] May, [facility] [address] [id number] [address] [place] [address], [place] [address] May, [facility] [address] [id number] [address] [place] [address], [place] [address] May, [facility] [address] [id number] [address] [place] [address], [place] [address] Apr, [facility] [address] [id number] [address] [place] [address], [place] [address] Apr, [facility] [address] [id number] [address] [place] [address], [place] [address] 29 Apr, 2012 [facility] [address] [id number] [address] [place] [address] Apr, [facility] [address] [id number] [address] [place] [address], [place] [address] Apr, [facility] [address] [id number] [address] [place] [address], [place] [address] Apr, [facility] [address] [id number] [address] [place] [address] Apr, [facility] [address] [id number] [address] [place] [address], [place] [address] Apr, [facility] [address] [id number] [address] [place] [address], [place] [address] Apr, [facility] [address] [id number] [address] [place] [address], [place] [address] Apr, [facility] [address] [id number] [address] [place] [address], [place] [address] Apr, [facility] [address] [id number] [address] [place] [address], [place] [address] Apr, [facility] [address] [id number] [address] [place] [address], [place] [address] Mar, [facility] [address] [id number] [address] [place] [address], [place] [address] 18 Mar, 2012 [facility] [address] [id number] [address] [place] [address] Mar, [facility] [address] [id number] [address] [place] [address], [place] [address] Mar, [facility] [address] [id number] [address] [place] [id number] Mar, [facility] [address] [id number] [address] [place] [id number] Mar, [facility] [address] [id number] [address] [place] [address] Mar, [facility] [address] [id number] [address] [place] [phone] Jan, [facility] [address] [id number] [address] [place] [id number] Jan, [facility] [address] [id number] [address] [place] [id number] Jan, [facility] [address] [id number] [address] [place] [id number] Jan, [facility] [address] [id number] [address] [place] [address], [place] [address] Jan, [facility] [address] [id number] [address] [place] [address], [place] [address] Jan, [facility] [address] [id number] [address] [place] [address], [place] [address] Jan, [facility] [address] [id number] [address] [place] [address], [place] [address] Jan, [facility] [address] [id number] [address] [place] [address], [place] [address] Jan, [facility] [address] [id number] [address] [place] [address], [place] [address] Jan, [facility] [address] [id number] [address] [place] [address], [place] [address] Jan, [facility] [address] [id number] [address] [place] [address], [place] [address] Dec, [facility] [address] [id number] [address] [place] [address], [place] [address] Dec, [facility] [address] [id number] [address] [place] [address], [place] [address] Dec, [facility] [address] [id number] [address] [place] [address], [place] [address] Dec, [facility] [address] [id number] [address] [place] [address], [place] [address] Dec, [facility] [address] [id number] [address] [place] [address], [place] [address] Dec, [facility] [address] [id number] [address] [place] [address], [place] [address] Dec, [facility] [address] [id number] [address] [place] [address], [place] [address] Dec, [facility] [address] [id number] [address] [place] [address], [place] [address] 16 Jan, 2012 [facility] [address] [id number] [address] [place] [address], [place] [address] 13 Jan, 2012 [facility] [address] [id number] [address] [place] [address], [place] [address] 13 Jan, 2012 [facility] [address] [id number] [address] [place] [address], [place] [address] Dec, [facility] [address] [id number] [address] [place] [address], [place] [address] Dec, [facility] [address] [id number] [address] [place] [address], [place] [address] Dec, [facility] [address] [id number] [address] [place] [address], [place] [address] Dec, [facility] [address] [id number] [address] [place] [address], [place] [address] Dec, [facility] [address] [id number] [address] [place] [address], [place] [address] Dec, [facility] [address] [id number] [address] [place] [address], [place] [address] Dec, [facility] [address] [id number] [address] [place] [address], [place] [address] Dec, [facility] [address] [id number] [address] [place] [address], [place] [address] October, [facility] [address] [id number] [address] [place] [address], [place] [address] October, [facility] [address] [id number] [address] [place] [address], [place] [address] October, [facility] [address] [id number] [address] [place] [address], [place] [address] October, [facility] [address] [id number] [address] [place] [address], [place] [address] October, [facility] [address] [id number] [address] [place] [address], [place] [address] October, [facility] [address] [id number] [address] [place] [address], [place] [address] Oct, [facility] [address] [id number] [address] [place] [address], [place] [address] Oct, [facility] [address] [id number] [address] [place] [address], [place] [address] Oct, [facility] [address] [id number] [address] [place] [address], [place] [address] Oct, [facility] [address] [id number] [address] [place] [address], [place] [address] Oct, [facility] [address] [id number] [address] [place] [address], [place] [address] Oct, [facility] [address] [id number] [address] [place] [address], [place] [address] Oct, [facility] [address] [id number] [address] [place] [address], [place] [address] Aug, [facility] [address] [id number] [address] [place] [address], [place] [address] Aug, [facility] [address] [id number] [address] [place] [address], [place] [address] Aug, [facility] [address] [id number] [address] [place] [address], [place] [address] Aug, [facility] [address] [id number] [address] [place] [address], [place] [address] Aug, [facility] [address] [id number] [address] [place] [address], [place] [address] Aug, [facility] [address] [id number] [address] [place] [address], [place] [address] Aug, [facility] [address] [id number] [address] [place] [address], [place] [address] Aug, [facility] [address] [id number] [address] [place] [address], [place] [address] Aug, [facility] [address] [id number] [address] [place] [address], [place] [address] Jul, [facility] [address] [id number] [address] [place] [address], [place] [address] Jul, [facility] [address] [id number] [address] [place] [address], [place] [address] Jul, [facility] [address] [id number] [address] [place] [address], [place] [address] Jul, [facility] [address] [id number] [address] [place] [address], [place] [address] Jun, [facility] [address] [id number] [address] [place] [address], [place] [address] Jun, [facility] [address] [id number] [address] [place] [address], [place] [address] May, [facility] [address] [id number] [address] [place] [address], [place] [address] May, [facility] [address] [id number] [address] [place] [address], [place] [address] May, [facility] [address] [id number] [address] [place] [address], [place] [address] May, [facility] [address] [id number] [address] [place] [address], [place] [address] May, [facility] [address] [id number] [address] [place] [address], [place] [address] 28 Apr, 2011 [facility] [address] [id number] [address] [place] [address], [place] [address] 28 Apr, 2011 [facility] [address] [id number] [address] [place] [address], [place] [address] 10 Apr, 2011 [facility] [address] [id number] [address] [place] [address] Jan, [facility] [address] [id number] [address] [place] [address] Dec, [facility] [address] [id number] [address] [place] [address] October, [facility] [address] [facility] [id number] [address] [place] [address] Jun, [facility] [address] [id number] [address] [place] [address] Apr, [facility] [address] [facility] [id number] [address] [place] [address] Apr, [facility] [address] [facility] [id number] [address] [place] [address] Apr, [facility] [address] [facility] [id number] [address] [place] [address] Jun, IMMUNIZATIONS No Known Immunizations SOCIAL HISTORY [...]
--- OUTSIDE RECORDS SUMMARY | 2020-01-25 13:27 | XMS REPORT ---
Author Author Moreno Ana Doctor Organization [facility] Address Unknown Phone Unavailable Care Team Providers Care Healthcare Or Medical Name Role Phone Migration, Doctor Unavailable Unavailable PROBLEMS Type Condition ICD9-CM Code [id number] Code Onset Dates Condition S tatus SNOMED Code Problem Chronic hepatitis C without hepatic coma B18.2 Active 727072089 Problem Cannabis abuse F12.10 Active 40108 009 Problem Bipolar 1 disorder F31.9 Active 3 62000636 Problem Attention deficit hyperactivity disorder (ADHD), combi luciano type F90.2 Active 71602589 Problem Attention deficit R41.840 Active 76 857975 Problem Hot flashes due to menopause N95.1 A ctive 892564660 Problem H/O laminectomy Z98.89 Active 1616 02276 Problem Other chronic pain G89.29 Active 8 8836850 Problem Anxiety disorder, unspecified type F41.9 Active 317122066 Problem Bipolar disorder, in partial remission, most rec ent episode hypomanic F31.71 Active [id number] ALLERGIES No Information ENCOUNTERS Encounter Location Date Diagnosis [facility] [address] [id number] [address] [place] [id number] Oct, [facility] [address] [facility] [id number] [address] [place] [id number] Oct, [facility] [address] [facility] [id number] [address] [place] [id number] Aug, [facility] [address] [facility] [id number] [address] [place] [id number] Jul, [facility] [address] [facility] [id number] [address] [place] [id number] Jul, [facility] [address] [facility] [id number] [address] [place] [address] Apr, [facility] [address] [facility] [id number] [address] [place] [address] Mar, Hot flashes due to menopause N95.1 ; Anxiety disorder, unspecified type F41.9 ; Low back pain M54.5 and Encounter for immunization Z23 [facility] [address] [facility] [id number] [address] [place] [address] Dec, Other chronic pain G89.29 an d Low back pain M54.5 [facility] [address] [facility] [id number] [address] [place] [address] October, [facility] [address] [facility] [id number] [address] [place] [phone] October, [facility] [address] [facility] [id number] [address] [place] [id number] October, [facility] [address] [facility] [id number] [address] [place] [address] October, Other chronic pain G89.29 an d Chronic hepatitis C without hepatic coma B18.2 [facility] [address] [facility] [id number] [address] [place] [address] Aug, Bipolar disorder, in partial remission, most recent episode hypomanic F31.71 ; Attention deficit hyperactivity disorder (ADHD), combined type F90.2 and Anxiety disorder, unspecified type F41.9 [facility] [address] [facility] [id number] [address] [place] [phone] Aug, [facility] [address] [facility] [id number] [address] [place] [address] Aug, Bipolar disorder, in partial remission, most recent episode hypomanic F31.71 [facility] [address] [facility] [id number] [address] [place] [id number] Aug, [facility] [address] [facility] [id number] [address] [place] [address] Aug, Bipolar disorder, in partial remission, most recent episode hypomanic F31.71 [facility] [address] [facility] [id number] [address] [place] [address] Aug, Bipolar disorder, in partial remission, most recent episode hypomanic F31.71 ; Attention deficit hyperactivity disorder (ADHD), combined type F90.2 and Anxiety disorder, unspecified type F41.9 [facility] [address] [id number] [address] [place] [address] Aug, Low back pain M54.5 and Pain in left wrist M25.532 [facility] [address] [id number] [address] [place] [id number] Aug, [facility] [address] [id number] [address] [place] [address] Jun, [facility] [address] [id number] [address] [place] [address] Apr, Bipolar disorder, in partial remission, most recent episode hypomanic F31.71 [facility] [address] [id number] [address] [place] [address] Apr, 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 [address] [id number] [address] [place] [address] Apr, Bipolar disorder, in partial remission, most recent episode hypomanic F31.71 [facility] [address] [id number] [address] [place] [address] Apr, Bipolar disorder, in partial remission, most recent episode hypomanic F31.71 [facility] [address] [id number] [address] [place] [address] Mar, [facility] [address] [id number] [address] [place] [address] Mar, Bipolar disorder, in partial remission, most recent episode hypomanic F31.71 ; Encounter for immunization Z23 and Low back pain M54.5 [facility] [address] [id number] [address] [place] [address] Mar, Bipolar disorder, in partial remission, most recent episode hypomanic F31.71 [facility] [address] [id number] [address] [place] [address] Mar, Bipolar disorder, in partial remission, most recent episode hypomanic F31.71 [facility] [address] [id number] [address] [place] [address] Jan, Bipolar disorder, in partial remission, most recent episode hypomanic F31.71 [facility] [address] [id number] [address] [place] [address] Jan, Bipolar disorder, in partial remission, most recent episode hypomanic F31.71 [facility] [address] [facility] [id number] [address] [place] [address] Dec, Bipolar disorder, in partial remission, most recent episode hypomanic F31.71 [facility] [address] [id number] [address] [place] [address] Dec, Bipolar disorder, in partial remission, most recent episode hypomanic F31.71 ; Attention deficit hyperactivity disorder (ADHD), combined type F90.2 ; Anxiety disorder, unspecified type F41.9 and Other group home (current) drug therapy Z79.899 [facility] [address] [id number] [address] [place] [address] Dec, Bipolar disorder, in partial remission, most recent episode hypomanic F31.71 [facility] [address] [id number] [address] [place] [address] Dec, Bipolar disorder, in partial remission, most recent episode hypomanic F31.71 [facility] [address] [id number] [address] [place] [address] October, Bipolar disorder, in partial remission, most recent episode hypomanic F31.71 [facility] [address] [id number] [address] [place] [address] October, [facility] [address] [id number] [address] [place] [address] October, [facility] [address] [id number] [address] [place] [address] Oct, Bipolar disorder, in partial remission, most recent episode hypomanic F31.71 ; Attention deficit hyperactivity disorder (ADHD), combined type F90.2 ; Anxiety disorder, unspecified type F41.9 and Encounter for drug screening Z02.83 [facility] [address] [id number] [address] [place] [address] Oct, Bipolar disorder, in partial remission, most recent episode hypomanic F31.71 [facility] [address] [facility] [id number] [address] [place] [address] Oct, Bipolar disorder, in partial remission, most recent episode hypomanic F31.71 [facility] [address] [facility] [id number] [address] [place] [address] Aug, Bipolar disorder, in partial remission, most recent episode hypomanic F31.71 [facility] [address] [facility] [id number] [address] [place] [address] Aug, Bipolar disorder, in partial remission, most recent episode hypomanic F31.71 [facility] [address] [facility] [id number] [address] [place] [address] Aug, Bipolar disorder, in partial remission, most recent episode hypomanic F31.71 [facility] [address] [id number] [address] [place] [address] Jul, Bipolar disorder, in partial remission, most recent episode hypomanic F31.71 ; Attention deficit hyperactivity disorder (ADHD), combined type F90.2 and Anxiety disorder, unspecified type F41.9 [facility] [address] [id number] [address] [place] [address] Jul, Bipolar disorder, in partial remission, most recent episode hypomanic F31.71 [facility] [address] [id number] [address] [place] [address] Jun, Bipolar disorder, in partial remission, most recent episode hypomanic F31.71 [facility] [address] [id number] [address] [place] [address] May, Bipolar disorder, in partial remission, most recent episode hypomanic F31.71 [facility] [address] [id number] [address] [place] [address] May, Bipolar disorder, in partial remission, most recent episode hypomanic F31.71 [facility] [address] [id number] [address] [place] [phone] Apr, [facility] [address] [facility] [id number] [address] [place] [address] Apr, Bipolar disorder, in partial remission, most recent episode hypomanic F31.71 ; Attention deficit hyperactivity disorder (ADHD), combined type F90.2 ; Anxiety disorder, unspecified type F41.9 and Cannabis abuse F12.10 [facility] [address] [id number] [address] [place] [address] Apr, Attention deficit hyperactiv ity disorder (ADHD), combined type F90.2 [facility] [address] [facility] [id number] [address] [place] [address] Mar, Attention deficit hyperactiv ity disorder (ADHD), combined type F90.2 [facility] [address] [facility] [id number] [address] [place] [address] 14 Mar, 2017 Anxiety disorder, unspecifie d type F41.9 [facility] [address] [facility] [id number] [address] [place] [id number] 18 Jan, 2017 Attention deficit hyperactiv ity disorder (ADHD), combined type F90.2 [facility] [address] [facility] [id number] [address] [place] [id number] 16 Jan, 2017 Anxiety disorder, unspecifie d type F41.9 [place] [id number] [facility] [id number] [address] [place] [address] Jan, Other chronic pain G89.29 ; Chronic hepatitis C without hepatic coma B18.2 and Bipolar 1 disorder F31.9 [facility] [address] [facility] [id number] [address] [place] [address] Dec, Attention deficit hyperactiv ity disorder (ADHD), combined type F90.2 [facility] [address] [facility] [id number] [address] [place] [address] Dec, Bipolar disorder, in partial remission, most recent episode hypomanic F31.71 ; Attention deficit hyperactivity disorder (ADHD), combined type F90.2 and Anxiety disorder, unspecified type F41.9 [place] [address] [facility] [id number] [address] [place] [address] Dec, Bipolar disorder, in partial remission, most recent episode hypomanic F31.71 ; Attention deficit hyperactivity disorder (ADHD), combined type F90.2 and Anxiety disorder, unspecified type F41.9 [facility] [address] [place] [id number] [address] [place] [address] Dec, Bipolar 1 disorder F31.9 and Attention deficit R41.840 [place] [address] [place] [id number] [address] [place] [address] Oct, Other chronic pain G89.29 ; Alopecia L65.9 and Screening, lipid Z13.220 [place] [address] [facility] [id number] [address] [place] [address] Oct, [place] [address] [place] [id number] [address] [place] [address] Aug, [place] [address] [place] [id number] [address] [place] [address] Aug, Eustachian tube dysfunction, right H69.81 ; Vertigo R42 and Other chronic pain G89.29 [place] [address] [place] [id number] [address] [place] [address] Aug, [facility] [address] [id number] [address] [place] [address] Jun, [facility] [address] [id number] [address] [place] [address] Jun, Low back pain M54.5 and Othe r chronic pain G89.29 [facility] [address] [id number] [address] [place] [address] Jun, [facility] [address] [id number] [address] [place] [address] May, [facility] [address] [id number] [address] [place] [address] Jan, [facility] [address] [id number] [address] [place] [address] Dec, [facility] [address] [id number] [address] [place] [address] Dec, [facility] [address] [id number] [address] [place] [address] Jun, [facility] [address] [id number] [address] [place] [address] Apr, Eustachian tube dysfunction, unspecified laterality H69.80 ; Hot flashes N95.1 and Encounter for immunization Z23 [facility] [address] [id number] [address] [place] [address] Jan, [facility] [address] [id number] [address] [place] [address] Jan, [facility] [address] [id number] [address] [place] [address] Jan, [facility] [address] [facility] [id number] [address] [place] [address] Jan, [facility] [address] [id number] [address] [place] [address] Jan, Encounter to establish care V65.8 ; Bipolar 1 disorder 296.7 ; Abdominal pain 789.00 ; Constipation 564.00 ; Hard of hearing 389.9 and Drug abuse 305.90 [facility] [address] [id number] [address] [place] [address] Dec, [facility] [address] [facility] [id number] [address] [place] [address] October, [facility] [address] [id number] [address] [place] [address] October, [facility] [address] [id number] [address] [place] [address] Oct, [facility] [address] [id number] [address] [place] [address] Oct, [facility] [address] [facility] [id number] [address] [place] [address] Oct, [facility] [address] [id number] [address] [place] [address] Aug, [facility] [address] [id number] [address] [place] [address] Aug, [facility] [address] [facility] [id number] [address] [place] [address] Aug, [facility] [address] [id number] [address] [place] [address] Aug, [facility] [address] [id number] [address] [place] [address] Aug, [facility] [place] [address] [id number] [address] [place] [address] Aug, [facility] [address] [id number] [address] [place] [address] Aug, [facility] [address] [id number] [address] [place] [address] Aug, [facility] [address] [id number] [address] [place] [address], [place] [address] Aug, 2014 [facility] [address] [id number] [address] [place] [address], [place] [address] Aug, 2014 [facility] [address] [id number] [address] [place] [address], [place] [address] Aug, 2014 [facility] [address] [id number] [address] [place] [address], [place] [address] Aug, 2014 [facility] [address] [id number] [address] [place] [address], [place] [id number] Aug, 2014 [facility] [address] [id number] [address] [place] [address], [place] [id number] Aug, 2014 [facility] [address] [id number] [address] [place] [address], [place] [address] Aug, [facility] [address] [id number] [address] [place] [address], [place] [address] Jul, [facility] [address] [id number] [address] [place] [address], [place] [address] Jul, [facility] [address] [id number] [address] [place] [address], [place] [id number] Jul, [facility] [address] [id number] [address] [place] [address], [place] [address] Jul, [facility] [address] [id number] [address] [place] [address], [place] [address] Jul, [facility] [address] [id number] [address] [place] [address], [place] [id number] Jul, [facility] [address] [id number] [address] [place] [address], [place] [id number] Jul, [facility] [address] [id number] [address] [place] [address], [place] [id number] Jul, [facility] [address] [id number] [address] [place] [address], [place] [address] Jun, [facility] [address] [id number] [address] [place] [address], [place] [address] Jun, [facility] [address] [id number] [address] [place] [address], [place] [address] Jun, [facility] [address] [id number] [address] [place] [address], [place] [address] Jun, [facility] [address] [id number] [address] [place] [address], [place] [id number] Jun, [facility] [address] [id number] [address] [place] [address], [place] [id number] Jun, [facility] [address] [id number] [address] [place] [address], [place] [id number] Jun, [facility] [address] [id number] [address] [place] [address], [place] [id number] Jun, [facility] [address] [id number] [address] [place] [address], [place] [id number] Jun, [facility] [address] [id number] [address] [place] [address], [place] [id number] Jun, [facility] [address] [id number] [address] [place] [address], [place] [id number] Jun, [facility] [address] [id number] [address] [place] [address], [place] [id number] May, [facility] [address] [id number] [address] [place] [address], [place] [address] May, [facility] [address] [id number] [address] [place] [address], [place] [address] May, [facility] [address] [id number] [address] [place] [address], [place] [id number] May, [facility] [address] [id number] [address] [place] [address], [place] [id number] May, [facility] [address] [id number] [address] [place] [address], [place] [id number] May, [facility] [address] [id number] [address] [place] [address], [place] [id number] May, [facility] [address] [id number] [address] [place] [address], [place] [id number] Apr, [facility] [address] [id number] [address] [place] [address], [place] [id number] Apr, [facility] [address] [id number] [address] [place] [address], [place] [id number] Apr, [facility] [address] [id number] [address] [place] [address], [place] [id number] Apr, [facility] [address] [id number] [address] [place] [address], [place] [id number] Apr, [facility] [address] [id number] [address] [place] [address], [place] [id number] Apr, [facility] [address] [id number] [address] [place] [address], [place] [id number] Mar, [facility] [address] [id number] [address] [place] [address], [place] [id number] Mar, [facility] [address] [id number] [address] [place] [address], [place] [address] Mar, [facility] [address] [id number] [address] [place] [address], [place] [address] Mar, [facility] [address] [id number] [address] [place] [address], [place] [address] Mar, [facility] [address] [id number] [address] [place] [address], [place] [address] Mar, [facility] [address] [id number] [address] [place] [address], [place] [address] Jan, [facility] [address] [id number] [address] [place] [address], [place] [address] Jan, [facility] [address] [id number] [address] [place] [address], [place] [address] Jan, [facility] [address] [id number] [address] [place] [address], [place] [address] Jan, [facility] [address] [id number] [address] [place] [address], [place] [address] Dec, [facility] [address] [id number] [address] [place] [address], [place] [address] Dec, [facility] [address] [id number] [address] [place] [address], [place] [address] Dec, [facility] [address] [id number] [address] [place] [address], [place] [address] Dec, [facility] [address] [id number] [address] [place] [address], [place] [address] Dec, [facility] [address] [id number] [address] [place] [address], [place] [address] Dec, [facility] [address] [id number] [address] [place] [address], [place] [address] Dec, [facility] [address] [id number] [address] [place] [address], [place] [address] Dec, [facility] [address] [id number] [address] [place] [address], [place] [address] Dec, [facility] [address] [id number] [address] [place] [address], [place] [address] Dec, [facility] [address] [id number] [address] [place] [address], [place] [address] Dec, [facility] [address] [id number] [address] [place] [address], [place] [address] Dec, [facility] [address] [id number] [address] [place] [address], [place] [address] October, [facility] [address] [id number] [address] [place] [address], [place] [address] October, [facility] [address] [id number] [address] [place] [address], [place] [address] October, [facility] [address] [id number] [address] [place] [address], [place] [address] October, [facility] [address] [id number] [address] [place] [address], [place] [address] October, [facility] [address] [id number] [address] [place] [address], [place] [address] October, [facility] [address] [id number] [address] [place] [address], [place] [address] Oct, [facility] [address] [id number] [address] [place] [address], [place] [address] Oct, [facility] [address] [id number] [address] [place] [address], [place] [address] Oct, [facility] [address] [id number] [address] [place] [address], [place] [address] Oct, [facility] [address] [id number] [address] [place] [address], [place] [address] Oct, [facility] [address] [id number] [address] [place] [address], [place] [address] Oct, [facility] [address] [id number] [address] [place] [address], [place] [address] Oct, [facility] [address] [id number] [address] [place] [address], [place] [address] Oct, [facility] [address] [id number] [address] [place] [address], [place] [address] Oct, [facility] [address] [id number] [address] [place] [address], [place] [address] Oct, [facility] [address] [id number] [address] [place] [address], [place] [address] Oct, [facility] [address] [id number] [facility] [place] [address] 08 Oct, 2013 [facility] [address] [id number] [facility] [place] [address] 15 Aug, 2013 [facility] [address] [id number] [facility] [place] [address] 15 Aug, 2013 [facility] [address] [id number] [address] [place] [address], [place] [address] Aug, [facility] [address] [id number] [address] [place] [address], [place] [address] Aug, [facility] [address] [id number] [address] [place] [address], [place] [address] Aug, [facility] [address] [id number] [address] [place] [address], [place] [address] Aug, [facility] [address] [id number] [address] [place] [address], [place] [address] Aug, [facility] [address] [id number] [address] [place] [address], [place] [address] Aug, [facility] [address] [id number] [address] [place] [address], [place] [address] Aug, [facility] [address] [id number] [address] [place] [address], [place] [address] Aug, [facility] [address] [id number] [address] [place] [address], [place] [address] Aug, [facility] [address] [id number] [address] [place] [address], [place] [address] Aug, [facility] [address] [id number] [address] [place] [address], [place] [address] Aug, [facility] [address] [id number] [address] [place] [address], [place] [address] Aug, [facility] [address] [id number] [address] [place] [address], [place] [address] 14 Aug, 2013 [facility] [address] [id number] [address] [place] [address], [place] [address] 14 Aug, 2013 [facility] [address] [id number] [address] [place] [address], [place] [address] 14 Aug, 2013 [facility] [address] [id number] [address] [place] [address], [place] [address] 14 Aug, 2013 [facility] [address] [id number] [address] [place] [address], [place] [address] 07 Aug, 2013 [facility] [address] [id number] [address] [place] [address], [place] [address] 07 Aug, 2013 [facility] [address] [id number] [address] [place] [address], [place] [address] 06 Aug, 2013 [facility] [address] [id number] [address] [place] [address], [place] [address] 06 Aug, 2013 [facility] [address] [id number] [address] [place] [address], [place] [address] 04 Aug, 2013 [facility] [address] [id number] [address] [place] [address], [place] [address] 04 Aug, 2013 [facility] [address] [id number] [address] [place] [address], [place] [address] Aug, [facility] [address] [id number] [address] [place] [address], [place] [address] Jul, [facility] [address] [id number] [address] [place] [address], [place] [address] Jul, [facility] [address] [id number] [address] [place] [address], [place] [address] Jul, [facility] [address] [id number] [address] [place] [address], [place] [address] Jul, [facility] [address] [id number] [address] [place] [address], [place] [address] Jul, [facility] [address] [id number] [address] [place] [address], [place] [address] Jul, [facility] [address] [id number] [address] [place] [address], [place] [address] Jul, [facility] [address] [id number] [address] [place] [address], [place] [address] Jul, [facility] [address] [id number] [address] [place] [address], [place] [address] Jul, [facility] [address] [id number] [address] [place] [address], [place] [address] Jul, [facility] [address] [id number] [address] [place] [address], [place] [address] Jul, [facility] [address] [id number] [address] [place] [address], [place] [address] Jul, [facility] [address] [id number] [address] [place] [address], [place] [address] Jul, [facility] [address] [id number] [address] [place] [address], [place] [address] Jul, [facility] [address] [id number] [address] [place] [address], [place] [address] Jul, [facility] [address] [id number] [address] [place] [address], [place] [address] Jul, [facility] [address] [id number] [address] [place] [address], [place] [address] Jul, [facility] [address] [id number] [address] [place] [address], [place] [address] Jul, [facility] [address] [id number] [address] [place] [address], [place] [address] Jul, [facility] [address] [id number] [address] [place] [address], [place] [address] Jul, [facility] [address] [id number] [address] [place] [address], [place] [address] 31 Jun, 2013 [facility] [address] [id number] [address] [place] [address], [place] [address] 31 Jun, 2013 [facility] [address] [id number] [address] [place] [address], [place] [address] Jun, [facility] [address] [id number] [address] [place] [address], [place] [address] Jun, [facility] [address] [id number] [address] [place] [address], [place] [address] Jun, [facility] [address] [id number] [address] [place] [address], [place] [address] Jun, [facility] [address] [id number] [address] [place] [address], [place] [address] Jun, [facility] [address] [id number] [address] [place] [address], [place] [address] Jun, [facility] [address] [id number] [address] [place] [address], [place] [address] Jun, [facility] [address] [id number] [address] [place] [address], [place] [address] Jun, [facility] [address] [id number] [address] [place] [address], [place] [address] Jun, [facility] [address] [id number] [address] [place] [address], [place] [address] Jun, [facility] [address] [id number] [address] [place] [address], [place] [address] Jun, [facility] [address] [id number] [address] [place] [address], [place] [address] Jun, [facility] [address] [id number] [address] [place] [address], [place] [address] Jun, [facility] [address] [id number] [address] [place] [address], [place] [address] 18 Jun, 2013 [facility] [address] [id number] [address] [place] [address], [place] [address] 18 Jun, 2013 [facility] [address] [id number] [address] [place] [address], [place] [address] 17 Jun, 2013 [facility] [address] [id number] [address] [place] [address], [place] [address] 17 Jun, 2013 [facility] [address] [id number] [address] [place] [address], [place] [address] 13 Jun, 2013 [facility] [address] [id number] [address] [place] [address], [place] [address] 12 Jun, 2013 [facility] [address] [id number] [address] [place] [address], [place] [address] 12 Jun, 2013 [facility] [address] [id number] [address] [place] [address], [place] [address] 09 Jun, 2013 [facility] [address] [id number] [address] [place] [address], [place] [address] 05 Jun, 2013 [facility] [address] [id number] [address] [place] [address], [place] [address] 05 Jun, 2013 [facility] [address] [id number] [address] [place] [address], [place] [address] 04 Jun, 2013 [facility] [address] [id number] [address] [place] [address], [place] [address] 04 Jun, 2013 [facility] [address] [id number] [address] [place] [address], [place] [address] May, [facility] [address] [id number] [address] [place] [address], [place] [address] 17 May, 2013 [facility] [address] [id number] [address] [place] [address], [place] [address] May, [facility] [address] [id number] [address] [place] [address], [place] [address] May, [facility] [address] [id number] [address] [place] [address] [address] May, [facility] [address] [id number] [address] [place] [address], [place] [address] May, [facility] [address] [id number] [address] [place] [address], [place] [address] Apr, [facility] [address] [id number] [address] [place] [address], [place] [address] Apr, [facility] [address] [id number] [address] [place] [address], [place] [address] Apr, [facility] [address] [id number] [address] [place] [address], [place] [address] Apr, [facility] [address] [id number] [address] [place] [address], [place] [address] Apr, [facility] [address] [id number] [address] [place] [address], [place] [address] Apr, [facility] [address] [id number] [address] [place] [address], [place] [address] 15 Apr, 2013 [facility] [address] [id number] [address] [place] [address], [place] [address] Apr, [facility] [address] [id number] [address] [place] [id number] 26 Mar, 2013 [facility] [address] [id number] [address] [place] [address] 24 Sep, 2012 [facility] [address] [id number] [address] [place] [address] 17 Sep, 2012 [facility] [address] [id number] [address] [place] [address], [place] [address] 17 Sep, 2012 [facility] [address] [id number] [address] [place] [id number] 11 Sep, 2012 [facility] [address] [id number] [address] [place] [address], [place] [address] 10 Mar, 2012 [facility] [address] [id number] [address] [place] [address], [place] [address] 05 Mar, 2013 [facility] [address] [id number] [address] [place] [address], [place] [address] 04 Mar, 2013 [facility] [address] [id number] [address] [place] [address], [place] [address] Jan, [facility] [address] [id number] [address] [place] [address], [place] [address] Jan, [facility] [address] [id number] [address] [place] [address], [place] [address] Jan, [facility] [address] [id number] [address] [place] [address], [place] [address] Jan, [facility] [address] [id number] [address] [place] [address], [place] [address] Jan, [facility] [address] [id number] [address] [place] [address], [place] [address] Jan, [facility] [address] [id number] [address] [place] [address], [place] [address] Dec, [facility] [address] [id number] [address] [place] [address], [place] [address] 24 Dec, 2012 [facility] [address] [id number] [address] [place] [address], [place] [address] Dec, [facility] [address] [id number] [address] [place] [address], [place] [address] Dec, [facility] [address] [id number] [address] [place] [address], [place] [address] 18 Dec, 2012 [facility] [address] [id number] [address] [place] [address], [place] [address] 17 Dec, 2012 [facility] [address] [id number] [address] [place] [address], [place] [address] 16 Dec, 2012 [facility] [address] [id number] [address] [place] [address], [place] [address] 16 Dec, 2012 [facility] [address] [id number] [address] [place] [address], [place] [address] 15 Dec, 2012 [facility] [address] [id number] [address] [place] [address], [place] [address] Dec, [facility] [address] [id number] [address] [place] [address], [place] [address] Dec, [facility] [address] [id number] [address] [place] [address], [place] [address] Dec, [facility] [address] [id number] [address] [place] [address], [place] [address] Dec, [facility] [address] [id number] [address] [place] [address], [place] [address] Dec, [facility] [address] [id number] [address] [place] [address], [place] [address] Dec, [facility] [address] [id number] [address] [place] [address], [place] [address] Dec, [facility] [address] [id number] [address] [place] [address], [place] [address] October, [facility] [address] [id number] [address] [place] [address], [place] [address] October, [facility] [address] [id number] [address] [place] [address], [place] [id number] October, [facility] [address] [id number] [address] [place] [address], [place] [address] October, [facility] [address] [id number] [address] [place] [address], [place] [address] October, [facility] [address] [id number] [address] [place] [address], [place] [address] October, [facility] [address] [id number] [address] [place] [address], [place] [address] October, [facility] [address] [id number] [address] [place] [address], [place] [id number] 29 Oct, 2012 [facility] [address] [id number] [address] [place] [address], [place] [id number] Oct, [facility] [address] [id number] [address] [place] [address], [place] [id number] 24 Oct, 2012 [facility] [address] [id number] [address] [place] [address], [place] [id number] Oct, [facility] [address] [id number] [address] [place] [address], [place] [id number] Oct, [facility] [address] [id number] [address] [place] [address], [place] [id number] 18 Oct, 2012 [facility] [address] [id number] [address] [place] [address], [place] [id number] 17 Oct, 2012 [facility] [address] [id number] [address] [place] [address], [place] [id number] 15 Oct, 2012 [facility] [address] [id number] [address] [place] [address], [place] [id number] Oct, [facility] [address] [id number] [address] [place] [address], [place] [address] Oct, [facility] [address] [id number] [address] [place] [address], [place] [address] Oct, [facility] [address] [id number] [address] [place] [address], [place] [id number] Oct, [facility] [address] [id number] [address] [place] [address], [place] [address] Aug, [facility] [address] [id number] [address] [place] [address], [place] [id number] Aug, [facility] [address] [id number] [address] [place] [address], [place] [id number] Aug, [facility] [address] [id number] [address] [place] [address], [place] [id number] Aug, [facility] [address] [id number] [address] [place] [address], [place] [id number] 05 Aug, 2012 [facility] [address] [id number] [address] [place] [address], [place] [id number] 05 Aug, 2012 [facility] [address] [id number] [address] [place] [address], [place] [id number] 20 Aug, 2012 [facility] [address] [id number] [address] [place] [address], [place] [id number] 14 Aug, 2012 [facility] [address] [id number] [address] [place] [address], [place] [id number] 12 Aug, 2012 [facility] [address] [id number] [address] [place] [address], [place] [id number] 11 Aug, 2012 [facility] [address] [id number] [address] [place] [address], [place] [id number] 29 Jul, 2012 [facility] [address] [id number] [address] [place] [address], [place] [id number] 15 Jul, 2012 [facility] [address] [id number] [address] [place] [address], [place] [id number] 08 Jul, 2012 [facility] [address] [id number] [address] [place] [address], [place] [id number] 20 Jun, 2012 [facility] [address] [id number] [address] [place] [address], [place] [id number] 18 Jun, 2012 [facility] [address] [id number] [address] [place] [address], [place] [id number] 18 Jun, 2012 [facility] [address] [id number] [address] [place] [address], [place] [id number] 18 Jun, 2012 [facility] [address] [id number] [address] [place] [address], [place] [id number] 18 Jun, 2012 [facility] [address] [id number] [address] [place] [address], [place] [id number] 14 Jun, 2012 [facility] [address] [id number] [address] [place] [address] [address] 14 Jun, 2012 [facility] [address] [id number] [address] [place] [address], [place] [id number] 13 Jun, 2012 [facility] [address] [id number] [address] [place] [address], [place] [id number] 13 Jun, 2012 [facility] [address] [id number] [address] [place] [address], [place] [id number] 11 Jun, 2012 [facility] [address] [id number] [address] [place] [address], [place] [id number] 11 Jun, 2012 [facility] [address] [id number] [address] [place] [address], [place] [id number] Jun, [facility] [address] [id number] [address] [place] [address], [place] [id number] Jun, [facility] [address] [id number] [address] [place] [address], [place] [id number] 07 Jun, 2012 [facility] [address] [id number] [address] [place] [address], [place] [id number] 07 Jun, 2012 [facility] [address] [id number] [address] [place] [address], [place] [address] Jun, [facility] [address] [id number] [address] [place] [address], [place] [id number] 06 Jun, 2012 [facility] [address] [id number] [address] [place] [address], [place] [id number] Jun, [facility] [address] [id number] [address] [place] [address], [place] [address] Jun, [facility] [address] [id number] [address] [place] [address], [place] [address] Jun, [facility] [address] [id number] [address] [place] [address], [place] [address] 05 Jun, 2012 [facility] [address] [id number] [address] [place] [address], [place] [address] Jun, [facility] [address] [id number] [address] [place] [address], [place] [address] Jun, [facility] [address] [id number] [address] [place] [address], [place] [address] May, [facility] [address] [id number] [address] [place] [address], [place] [address] May, [facility] [address] [id number] [address] [place] [address], [place] [address] May, [facility] [address] [id number] [address] [place] [address], [place] [address] May, [facility] [address] [id number] [address] [place] [address], [place] [address] May, [facility] [address] [id number] [address] [place] [address], [place] [address] May, [facility] [address] [id number] [address] [place] [address], [place] [address] May, [facility] [address] [id number] [address] [place] [address], [place] [address] May, [facility] [address] [id number] [address] [place] [address], [place] [address] Apr, [facility] [address] [id number] [address] [place] [address], [place] [address] Apr, [facility] [address] [id number] [address] [place] [address], [place] [address] 29 Apr, 2012 [facility] [address] [id number] [address] [place] [id number] Apr, [facility] [address] [id number] [address] [place] [address], [place] [address] Apr, [facility] [address] [id number] [address] [place] [address], [place] [address] Apr, [facility] [address] [id number] [address] [place] [id number] Apr, [facility] [address] [id number] [address] [place] [address], [place] [address] Apr, [facility] [address] [id number] [address] [place] [address], [place] [address] Apr, [facility] [address] [id number] [address] [place] [address], [place] [address] Apr, [facility] [address] [id number] [address] [place] [address], [place] [address] Apr, [facility] [address] [id number] [address] [place] [address], [place] [address] Apr, [facility] [address] [id number] [address] [place] [address], [place] [address] Mar, [facility] [address] [id number] [address] [place] [address], [place] [id number] 18 Mar, 2012 [facility] [address] [id number] [address] [place] [id number] Mar, [facility] [address] [id number] [address] [place] [address], [place] [address] Mar, [facility] [address] [id number] [address] [place] [id number] Mar, [facility] [address] [id number] [address] [place] [id number] Mar, [facility] [address] [id number] [address] [place] [id number] Mar, [facility] [address] [id number] [address] [place] [id number] Jan, [facility] [address] [id number] [address] [place] [id number] Jan, [facility] [address] [id number] [address] [place] [id number] Jan, [facility] [address] [id number] [address] [place] [id number] Jan, [facility] [address] [id number] [address] [place] [address], [place] [address] Jan, [facility] [address] [id number] [address] [place] [address], [place] [address] Jan, [facility] [address] [id number] [address] [place] [address], [place] [address] Jan, [facility] [address] [id number] [address] [place] [address], [place] [address] Jan, [facility] [address] [id number] [address] [place] [address], [place] [address] Jan, [facility] [address] [id number] [address] [place] [address], [place] [address] Jan, [facility] [address] [id number] [address] [place] [address], [place] [address] Jan, [facility] [address] [id number] [address] [place] [address], [place] [address] Dec, [facility] [address] [id number] [address] [place] [address], [place] [address] Dec, [facility] [address] [id number] [address] [place] [address], [place] [address] Dec, [facility] [address] [id number] [address] [place] [address], [place] [address] Dec, [facility] [address] [id number] [address] [place] [address], [place] [address] Dec, [facility] [address] [id number] [address] [place] [address], [place] [address] Dec, [facility] [address] [id number] [address] [place] [address], [place] [address] Dec, [facility] [address] [id number] [address] [place] [address], [place] [address] Dec, [facility] [address] [id number] [address] [place] [address], [place] [address] 16 Jan, 2012 [facility] [address] [id number] [address] [place] [address], [place] [address] 13 Jan, 2012 [facility] [address] [id number] [address] [place] [address], [place] [address] 13 Jan, 2012 [facility] [address] [id number] [address] [place] [address], [place] [address] Dec, [facility] [address] [id number] [address] [place] [address], [place] [address] Dec, [facility] [address] [id number] [address] [place] [address], [place] [address] Dec, [facility] [address] [id number] [address] [place] [address], [place] [address] Dec, [facility] [address] [id number] [address] [place] [address], [place] [address] Dec, [facility] [address] [id number] [address] [place] [address], [place] [address] Dec, [facility] [address] [id number] [address] [place] [address], [place] [address] Dec, [facility] [address] [id number] [address] [place] [address], [place] [address] Dec, [facility] [address] [id number] [address] [place] [address], [place] [address] October, [facility] [address] [id number] [address] [place] [address], [place] [address] October, [facility] [address] [id number] [address] [place] [address], [place] [address] October, [facility] [address] [id number] [address] [place] [address], [place] [address] October, [facility] [address] [id number] [address] [place] [address], [place] [address] October, [facility] [address] [id number] [address] [place] [address], [place] [address] October, [facility] [address] [id number] [address] [place] [address], [place] [address] Oct, [facility] [address] [id number] [address] [place] [address], [place] [address] Oct, [facility] [address] [id number] [address] [place] [address], [place] [address] Oct, [facility] [address] [id number] [address] [place] [address], [place] [address] Oct, [facility] [address] [id number] [address] [place] [address], [place] [address] Oct, [facility] [address] [id number] [address] [place] [address], [place] [address] Oct, [facility] [address] [id number] [address] [place] [address], [place] [address] Oct, [facility] [address] [id number] [address] [place] [address], [place] [address] Aug, [facility] [address] [id number] [address] [place] [address], [place] [address] Aug, [facility] [address] [id number] [address] [place] [address], [place] [address] Aug, [facility] [address] [id number] [address] [place] [address], [place] [address] Aug, [facility] [address] [id number] [address] [place] [address], [place] [address] Aug, [facility] [address] [id number] [address] [place] [address], [place] [address] Aug, [facility] [address] [id number] [address] [place] [address], [place] [address] Aug, [facility] [address] [id number] [address] [place] [address], [place] [address] Aug, [facility] [address] [id number] [address] [place] [address], [place] [address] Aug, [facility] [address] [id number] [address] [place] [address], [place] [address] Jul, [facility] [address] [id number] [address] [place] [address], [place] [address] Jul, [facility] [address] [id number] [address] [place] [address], [place] [address] Jul, [facility] [address] [id number] [address] [place] [address], [place] [address] Jul, [facility] [address] [id number] [address] [place] [address], [place] [address] Jun, [facility] [address] [id number] [address] [place] [address], [place] [address] Jun, [facility] [address] [id number] [address] [place] [address], [place] [address] May, [facility] [address] [id number] [address] [place] [address], [place] [address] May, [facility] [address] [id number] [address] [place] [address], [place] [address] May, [facility] [address] [id number] [address] [place] [address], [place] [address] May, [facility] [address] [id number] [address] [place] [address], [place] [address] May, [facility] [address] [id number] [address] [place] [address], [place] [address] 28 Apr, 2011 [facility] [address] [id number] [address] [place] [address], [place] [address] 28 Apr, 2011 [facility] [address] [id number] [address] [place] [address], [place] [address] 10 Apr, 2011 [facility] [address] [id number] [address] [place] [id number] Jan, [facility] [address] [id number] [address] [place] [id number] Dec, [facility] [address] [id number] [address] [place] [id number] October, [facility] [address] [id number] [address] [place] [id number] Jun, [facility] [address] [id number] [address] [place] [id number] Apr, [facility] [address] [id number] [address] [place] [id number] Apr, [facility] [address] [id number] [address] [place] [id number] Apr, [facility] [address] [id number] [address] [place] [id number] Jun, IMMUNIZATIONS No Known Immunizations SOCIAL HISTORY Never Assessed REASON FOR VISIT PLAN OF CARE VITAL SIGNS Weight 159.38 lbs 2013-04-16 Heart Rate 68 bpm 2013-04-16 Blood pressure systolic 158 mmHg 2013-04-16 Blood pressure diastolic 102 mmHg 2013-04-16 MEDICATIONS Unknown Medications RESULTS No Results PROCEDURES [...]
--- OUTSIDE RECORDS SUMMARY | 2020-01-25 13:27 | XMS REPORT ---
Author Author Ana MCDONALD [facility] Address [address] [place] [address] Care Team Providers [facility] Nurse Name Role Phone CHAZ MCDONALD Unavailable PROBLEMS Type Condition ICD9-CM Code [id number] Code Onset Dates Condition S tatus SNOMED Code Problem Chronic hepatitis C without hepatic coma B18.2 Active 726172201 Problem Cannabis abuse F12.10 Active 91812 009 Problem Bipolar 1 disorder F31.9 Active 3 65282418 Problem Attention deficit hyperactivity disorder (ADHD), combi luciano type F90.2 Active 47935912 Problem Attention deficit R41.840 Active 76 209185 Problem Hot flashes due to menopause N95.1 A ctive 819256232 Problem H/O laminectomy Z98.89 Active 1616 19941 Problem Other chronic pain G89.29 Active 8 5816312 Problem Anxiety disorder, unspecified type F41.9 Active 435214594 Problem Bipolar disorder, in partial remission, most rec ent episode hypomanic F31.71 Active 572147223 ALLERGIES No Information ENCOUNTERS Encounter Location Date Diagnosis [facility] [address] [id number] [address] [place] [id number] Oct, [facility] [address] [facility] [id number] [address] [place] [id number] Oct, [facility] [address] [facility] [id number] [address] [place] [phone] Aug, [facility] [address] [facility] [id number] [address] [place] [phone] Jul, [facility] [address] [facility] [id number] [address] [place] [phone] Jul, [facility] [address] [facility] [id number] [address] [place] [id number] Apr, [facility] [address] [id number] [address] [place] [address] Mar, Hot flashes due to menopause N95.1 ; Anxiety disorder, unspecified type F41.9 ; Low back pain M54.5 and Encounter for immunization Z23 [facility] [address] [id number] [address] [place] [id number] Dec, Other chronic pain G89.29 an d Low back pain M54.5 [facility] [address] [id number] [address] [place] [id number] October, [facility] [address] [id number] [address] [place] [phone] October, [facility] [address] [id number] [address] [place] [phone] October, [facility] [address] [facility] [id number] [address] [place] [phone] October, Other chronic pain G89.29 an d Chronic hepatitis C without hepatic coma B18.2 [facility] [address] [id number] [address] [place] [address] Aug, Bipolar disorder, in partial remission, most recent episode hypomanic F31.71 ; Attention deficit hyperactivity disorder (ADHD), combined type F90.2 and Anxiety disorder, unspecified type F41.9 [facility] [address] [id number] [address] [place] [phone] Aug, [facility] [address] [id number] [address] [place] [phone] Aug, Bipolar disorder, in partial remission, most recent episode hypomanic F31.71 [facility] [address] [id number] [address] [place] [phone] Aug, [facility] [address] [facility] [id number] [address] [place] [address] Aug, Bipolar disorder, in partial remission, most recent episode hypomanic F31.71 [facility] [address] [id number] [address] [place] [phone] Aug, Bipolar disorder, in partial remission, most recent episode hypomanic F31.71 ; Attention deficit hyperactivity disorder (ADHD), combined type F90.2 and Anxiety disorder, unspecified type F41.9 [facility] [address] [id number] [address] [place] [address] Aug, Low back pain M54.5 and Pain in left wrist M25.532 [facility] [address] [id number] [address] [place] [phone] Aug, [facility] [address] [id number] [address] [place] [id number] Jun, [facility] [address] [id number] [address] [place] [phone] Apr, Bipolar disorder, in partial remission, most recent episode hypomanic F31.71 [facility] [address] [id number] [address] [place] [phone] Apr, [facility] [address] [id number] [address] [place] [id number] Apr, Bipolar disorder, in partial remission, most recent episode hypomanic F31.71 ; Attention deficit hyperactivity disorder (ADHD), combined type F90.2 ; Anxiety disorder, unspecified type F41.9 and Other fdc (current) drug therapy Z79.899 [facility] [address] [id number] [address] [place] [address] Apr, Bipolar disorder, in partial remission, most recent episode hypomanic F31.71 [facility] [address] [id number] [address] [place] [phone] Apr, Bipolar disorder, in partial remission, most recent episode hypomanic F31.71 [facility] [address] [id number] [address] [place] [address] Mar, [facility] [address] [id number] [address] [place] [phone] Mar, Bipolar disorder, in partial remission, most recent episode hypomanic F31.71 ; Encounter for immunization Z23 and Low back pain M54.5 [facility] [address] [facility] [id number] [address] [place] [phone] Mar, Bipolar disorder, in partial remission, most recent episode hypomanic F31.71 [facility] [address] [facility] [id number] [address] [place] [address] Mar, Bipolar disorder, in partial remission, most recent episode hypomanic F31.71 [facility] [address] [facility] [id number] [address] [place] [id number] Jan, Bipolar disorder, in partial remission, most recent episode hypomanic F31.71 [facility] [address] [facility] [id number] [address] [place] [id number] Jan, Bipolar disorder, in partial remission, most recent episode hypomanic F31.71 [facility] [address] [facility] [id number] [address] [place] [phone] Dec, Bipolar disorder, in partial remission, most recent episode hypomanic F31.71 [facility] [address] [facility] [id number] [address] [place] [phone] Dec, Bipolar disorder, in partial remission, most recent episode hypomanic F31.71 ; Attention deficit hyperactivity disorder (ADHD), combined type F90.2 ; Anxiety disorder, unspecified type F41.9 and Other fdc (current) drug therapy Z79.899 [facility] [address] [facility] [id number] [address] [place] [id number] Dec, Bipolar disorder, in partial remission, most recent episode hypomanic F31.71 [facility] [address] [facility] [id number] [address] [place] [id number] Dec, Bipolar disorder, in partial remission, most recent episode hypomanic F31.71 [facility] [address] [facility] [id number] [address] [place] [id number] October, Bipolar disorder, in partial remission, most recent episode hypomanic F31.71 [facility] [address] [id number] [address] [place] [id number] October, [facility] [address] [id number] [address] [place] [id number] October, [facility] [address] [id number] [address] [place] [phone] Oct, Bipolar disorder, in partial remission, most recent episode hypomanic F31.71 ; Attention deficit hyperactivity disorder (ADHD), combined type F90.2 ; Anxiety disorder, unspecified type F41.9 and Encounter for drug screening Z02.83 [facility] [address] [id number] [address] [place] [phone] Oct, Bipolar disorder, in partial remission, most recent episode hypomanic F31.71 [facility] [address] [facility] [id number] [address] [place] [phone] Oct, Bipolar disorder, in partial remission, most recent episode hypomanic F31.71 [facility] [address] [id number] [address] [place] [id number] Aug, Bipolar disorder, in partial remission, most recent episode hypomanic F31.71 [facility] [address] [facility] [id number] [address] [place] [id number] Aug, Bipolar disorder, in partial remission, most recent episode hypomanic F31.71 [facility] [address] [facility] [id number] [address] [place] [id number] Aug, Bipolar disorder, in partial remission, most recent episode hypomanic F31.71 [facility] [address] [facility] [id number] [address] [place] [id number] Jul, Bipolar disorder, in partial remission, most recent episode hypomanic F31.71 ; Attention deficit hyperactivity disorder (ADHD), combined type F90.2 and Anxiety disorder, unspecified type F41.9 [facility] [address] [id number] [address] [place] [phone] Jul, Bipolar disorder, in partial remission, most recent episode hypomanic F31.71 [facility] [address] [facility] [id number] [address] [place] [id number] Jun, Bipolar disorder, in partial remission, most recent episode hypomanic F31.71 [facility] [address] [id number] [address] [place] [phone] May, Bipolar disorder, in partial remission, most recent episode hypomanic F31.71 [facility] [address] [id number] [address] [place] [id number] May, Bipolar disorder, in partial remission, most recent episode hypomanic F31.71 [facility] [address] [facility] [id number] [address] [place] [id number] Apr, [facility] [address] [facility] [id number] [address] [place] [phone] Apr, Bipolar disorder, in partial remission, most recent episode hypomanic F31.71 ; Attention deficit hyperactivity disorder (ADHD), combined type F90.2 ; Anxiety disorder, unspecified type F41.9 and Cannabis abuse F12.10 [facility] [address] [facility] [id number] [address] [place] [phone] Apr, Attention deficit hyperactiv ity disorder (ADHD), combined type F90.2 [facility] [address] [facility] [id number] [address] [place] [id number] Mar, Attention deficit hyperactiv ity disorder (ADHD), combined type F90.2 [facility] [address] [id number] [address] [place] [id number] 14 Mar, 2017 Anxiety disorder, unspecifie d type F41.9 [facility] [address] [facility] [id number] [address] [place] [id number] Jan, Attention deficit hyperactiv ity disorder (ADHD), combined type F90.2 [facility] [address] [facility] [id number] [address] [place] [id number] Jan, Anxiety disorder, unspecifie d type F41.9 [facility] [address] [facility] [id number] [address] [place] [phone] Jan, Other chronic pain G89.29 ; Chronic hepatitis C without hepatic coma B18.2 and Bipolar 1 disorder F31.9 [facility] [address] [id number] [address] [place] [id number] Dec, Attention deficit hyperactiv ity disorder (ADHD), combined type F90.2 [facility] [address] [id number] [address] [place] [id number] Dec, Bipolar disorder, in partial remission, most recent episode hypomanic F31.71 ; Attention deficit hyperactivity disorder (ADHD), combined type F90.2 and Anxiety disorder, unspecified type F41.9 [facility] [address] [facility] [id number] [address] [place] [id number] Dec, Bipolar disorder, in partial remission, most recent episode hypomanic F31.71 ; Attention deficit hyperactivity disorder (ADHD), combined type F90.2 and Anxiety disorder, unspecified type F41.9 [facility] [address] [facility] [id number] [address] [place] [id number] Dec, Bipolar 1 disorder F31.9 and Attention deficit R41.840 [facility] [address] [facility] [id number] [address] [place] [id number] Oct, Other chronic pain G89.29 ; Alopecia L65.9 and Screening, lipid Z13.220 [facility] [address] [facility] [id number] [address] [place] [id number] Oct, [facility] [address] [facility] [id number] [address] [place] [id number] Aug, [facility] [address] [facility] [id number] [address] [place] [phone] Aug, Eustachian tube dysfunction, right H69.81 ; Vertigo R42 and Other chronic pain G89.29 [facility] [address] [id number] [address] [place] [id number] Aug, [facility] [address] [id number] [address] [place] [phone] Jun, [facility] [address] [id number] [address] [place] [id number] Jun, Low back pain M54.5 and Othe r chronic pain G89.29 [facility] [address] [id number] [address] [place] [id number] Jun, [facility] [address] [id number] [address] [place] [id number] May, [facility] [address] [id number] [address] [place] [phone] Jan, [facility] [address] [id number] [address] [place] [phone] Dec, [facility] [address] [id number] [address] [place] [id number] Dec, [facility] [address] [id number] [address] [place] [phone] Jun, [facility] [address] [facility] [id number] [address] [place] [phone] Apr, Eustachian tube dysfunction, unspecified laterality H69.80 ; Hot flashes N95.1 and Encounter for immunization Z23 [facility] [address] [id number] [address] [place] [id number] Jan, [facility] [address] [id number] [address] [place] [phone] Jan, [facility] [address] [id number] [address] [place] [phone] Jan, [facility] [address] [id number] [address] [place] [phone] Jan, [facility] [address] [id number] [address] [place] [id number] Jan, Encounter to establish care V65.8 ; Bipolar 1 disorder 296.7 ; Abdominal pain 789.00 ; Constipation 564.00 ; Hard of hearing 389.9 and Drug abuse 305.90 [facility] [address] [id number] [address] [place] [id number] Dec, [facility] [address] [id number] [address] [place] [phone] October, [facility] [address] [id number] [address] [place] [phone] October, [facility] [address] [id number] [address] [place] [phone] Oct, [facility] [address] [id number] [address] [place] [id number] Oct, [facility] [address] [id number] [address] [place] [phone] Oct, [facility] [address] [id number] [address] [place] [id number] Aug, [facility] [address] [id number] [address] [place] [phone] Aug, [facility] [address] [id number] [address] [place] [id number] Aug, [facility] [address] [id number] [address] [place] [phone] Aug, [facility] [address] [id number] [address] [place] [phone] Aug, [facility] [address] [id number] [address] [place] [phone] Aug, [facility] [address] [id number] [address] [place] [phone] Aug, [facility] [address] [id number] [address] [place] [address], [place] [address] Aug, 2014 [facility] [address] [id number] [address] [place] [address], [place] [address] Aug, 2014 [facility] [address] [id number] [address] [place] [address], [place] [address] Aug, 2014 [facility] [address] [id number] [address] [place] [address], [place] [address] Aug, 2014 [facility] [address] [id number] [address] [place] [address], [place] [address] Aug, 2014 [facility] [address] [id number] [address] [place] [address], [place] [address] Aug, 2014 [facility] [address] [id number] [address] [place] [address], [place] [address] Aug, 2014 [facility] [address] [id number] [address] [place] [address], [place] [address] Aug, [facility] [address] [id number] [address] [place] [address], [place] [address] Jul, [facility] [address] [id number] [address] [place] [address], [place] [address] Jul, [facility] [address] [id number] [address] [place] [address], [place] [address] Jul, [facility] [address] [id number] [address] [place] [address], [place] [address] Jul, [facility] [address] [id number] [address] [place] [address], [place] [address] Jul, [facility] [address] [id number] [address] [place] [address], [place] [address] Jul, [facility] [address] [id number] [address] [place] [address], [place] [address] Jul, [facility] [address] [id number] [address] [place] [address], [place] [address] Jul, [facility] [address] [id number] [address] [place] [address], [place] [address] Jun, [facility] [address] [id number] [address] [place] [address], [place] [address] Jun, [facility] [address] [id number] [address] [place] [address], [place] [address] Jun, [facility] [address] [id number] [address] [place] [address], [place] [address] Jun, [facility] [address] [id number] [address] [place] [address], [place] [address] Jun, [facility] [address] [id number] [address] [place] [address], [place] [address] Jun, [facility] [address] [id number] [address] [place] [address], [place] [address] Jun, [facility] [address] [id number] [address] [place] [address], [place] [address] Jun, [facility] [address] [id number] [address] [place] [address], [place] [address] Jun, [facility] [address] [id number] [address] [place] [address], [place] [address] Jun, [facility] [address] [id number] [address] [place] [address], [place] [address] Jun, [facility] [address] [id number] [address] [place] [address], [place] [address] May, [facility] [address] [id number] [address] [place] [address], [place] [address] May, [facility] [address] [id number] [address] [place] [address], [place] [address] May, [facility] [address] [id number] [address] [place] [address], [place] [address] May, [facility] [address] [id number] [address] [place] [address], [place] [address] May, [facility] [address] [id number] [address] [place] [address], [place] [address] May, [facility] [address] [id number] [address] [place] [address], [place] [address] May, [facility] [address] [id number] [address] [place] [address], [place] [address] Apr, [facility] [address] [id number] [address] [place] [address], [place] [address] Apr, [facility] [address] [id number] [address] [place] [address], [place] [address] Apr, [facility] [address] [id number] [address] [place] [address], [place] [address] Apr, [facility] [address] [id number] [address] [place] [address], [place] [address] Apr, [facility] [address] [id number] [address] [place] [address], [place] [address] Apr, [facility] [address] [id number] [address] [place] [address], [place] [address] 29 Mar, 2014 [facility] [address] [id number] [address] [place] [address], [place] [address] 29 Mar, 2014 [facility] [address] [id number] [address] [place] [address], [place] [address] Mar, [facility] [address] [id number] [address] [place] [address], [place] [address] Mar, [facility] [address] [id number] [address] [place] [address], [place] [address] Mar, [facility] [address] [id number] [address] [place] [address], [place] [address] Mar, [facility] [address] [id number] [address] [place] [address], [place] [address] Jan, [facility] [address] [id number] [address] [place] [address] Jan, [facility] [address] [id number] [address] [place] [address] Jan, [facility] [address] [id number] [address] [place] [address], [place] [address] Jan, [facility] [address] [id number] [address] [place] [address], [place] [address] Dec, [facility] [address] [id number] [address] [place] [address], [place] [address] Dec, [facility] [address] [id number] [address] [place] [address], [place] [address] Dec, [facility] [address] [id number] [address] [place] [address], [place] [address] Dec, [facility] [address] [id number] [address] [place] [address], [place] [address] Dec, [facility] [address] [id number] [address] [place] [address], [place] [address] Dec, [facility] [address] [id number] [address] [place] [address], [place] [address] Dec, [facility] [address] [id number] [address] [place] [address], [place] [address] Dec, [facility] [address] [id number] [address] [place] [address], [place] [address] Dec, [facility] [address] [id number] [address] [place] [address], [place] [address] Dec, [facility] [address] [id number] [address] [place] [address], [place] [address] Dec, [facility] [address] [id number] [address] [place] [address], [place] [address] Dec, [facility] [address] [id number] [address] [place] [address], [place] [address] October, [facility] [address] [id number] [address] [place] [address], [place] [address] October, [facility] [address] [id number] [address] [place] [address], [place] [address] October, [facility] [address] [id number] [address] [place] [address], [place] [address] October, [facility] [address] [id number] [address] [place] [address], [place] [address] October, [facility] [address] [id number] [address] [place] [address], [place] [address] October, [facility] [address] [id number] [address] [place] [address], [place] [address] Oct, [facility] [address] [id number] [address] [place] [address], [place] [address] Oct, [facility] [address] [id number] [address] [place] [address], [place] [address] Oct, [facility] [address] [id number] [address] [place] [address], [place] [address] Oct, [facility] [address] [id number] [address] [place] [address], [place] [address] Oct, [facility] [address] [id number] [address] [place] [address], [place] [address] Oct, [facility] [address] [id number] [address] [place] [address], [place] [address] Oct, [facility] [address] [id number] [address] [place] [address], [place] [address] Oct, [facility] [address] [id number] [address] [place] [address], [place] [address] Oct, [facility] [address] [id number] [address] [place] [address], [place] [address] Oct, [facility] [address] [id number] [facility] [place] [address] 08 Oct, 2013 [facility] [address] [id number] [address] [place] [address], [place] [address] 08 Oct, 2013 [facility] [address] [id number] [address] [place] [address], [place] [address] 15 Aug, 2013 [facility] [address] [id number] [address] [place] [address], [place] [address] 15 Aug, 2013 [facility] [address] [id number] [address] [place] [address], [place] [address] Aug, [facility] [address] [id number] [address] [place] [address], [place] [address] Aug, [facility] [address] [id number] [address] [place] [address], [place] [address] 05 Aug, 2013 [facility] [address] [id number] [address] [place] [address], [place] [address] 05 Aug, 2013 [facility] [address] [id number] [address] [place] [address], [place] [address] 04 Aug, 2013 [facility] [address] [id number] [address] [place] [address], [place] [address] Aug, [facility] [address] [id number] [address] [place] [address], [place] [address] Aug, [facility] [address] [id number] [address] [place] [address], [place] [address] Aug, [facility] [address] [id number] [address] [place] [address], [place] [address] Aug, [facility] [address] [id number] [address] [place] [address], [place] [address] Aug, [facility] [address] [id number] [address] [place] [address], [place] [address] Aug, [facility] [address] [id number] [address] [place] [address], [place] [address] 20 Aug, 2013 [facility] [address] [id number] [address] [place] [address], [place] [address] 14 Aug, 2013 [facility] [address] [id number] [address] [place] [address], [place] [address] 14 Aug, 2013 [facility] [address] [id number] [address] [place] [address], [place] [address] 14 Aug, 2013 [facility] [address] [id number] [address] [place] [address], [place] [address] 14 Aug, 2013 [facility] [address] [id number] [address] [place] [address], [place] [address] 07 Aug, 2013 [facility] [address] [id number] [address] [place] [address], [place] [address] 07 Aug, 2013 [facility] [address] [id number] [address] [place] [address], [place] [address] 06 Aug, 2013 [facility] [address] [id number] [address] [place] [address], [place] [address] 06 Aug, 2013 [facility] [address] [id number] [address] [place] [address], [place] [address] 04 Aug, 2013 [facility] [address] [id number] [address] [place] [address], [place] [address] 04 Aug, 2013 [facility] [address] [id number] [address] [place] [address], [place] [address] Aug, [facility] [address] [id number] [address] [place] [address], [place] [address] Jul, [facility] [address] [id number] [address] [place] [address], [place] [address] Jul, [facility] [address] [id number] [address] [place] [address], [place] [address] Jul, [facility] [address] [id number] [address] [place] [address], [place] [address] Jul, [facility] [address] [id number] [address] [place] [address], [place] [address] Jul, [facility] [address] [id number] [address] [place] [address], [place] [address] Jul, [facility] [address] [id number] [address] [place] [address], [place] [address] Jul, [facility] [address] [id number] [address] [place] [address], [place] [address] Jul, [facility] [address] [id number] [address] [place] [address], [place] [address] Jul, [facility] [address] [id number] [address] [place] [address], [place] [address] Jul, [facility] [address] [id number] [address] [place] [address], [place] [address] Jul, [facility] [address] [id number] [address] [place] [address], [place] [address] Jul, [facility] [address] [id number] [address] [place] [address], [place] [address] Jul, [facility] [address] [id number] [address] [place] [address], [place] [address] Jul, [facility] [address] [id number] [address] [place] [address], [place] [address] Jul, [facility] [address] [id number] [address] [place] [address], [place] [address] Jul, [facility] [address] [id number] [address] [place] [address], [place] [address] Jul, [facility] [address] [id number] [address] [place] [address], [place] [address] Jul, [facility] [address] [id number] [address] [place] [address], [place] [address] Jul, [facility] [address] [id number] [address] [place] [address], [place] [address] Jul, [facility] [address] [id number] [address] [place] [address], [place] [address] Jun, [facility] [address] [id number] [address] [place] [address], [place] [address] Jun, [facility] [address] [id number] [address] [place] [address], [place] [address] Jun, [facility] [address] [id number] [address] [place] [address], [place] [address] Jun, [facility] [address] [id number] [address] [place] [address], [place] [address] Jun, [facility] [address] [id number] [address] [place] [address], [place] [address] Jun, [facility] [address] [id number] [address] [place] [address], [place] [address] Jun, [facility] [address] [id number] [address] [place] [address], [place] [address] Jun, [facility] [address] [id number] [address] [place] [address], [place] [address] Jun, [facility] [address] [id number] [address] [place] [address], [place] [address] Jun, [facility] [address] [id number] [address] [place] [address], [place] [address] Jun, [facility] [address] [id number] [address] [place] [address], [place] [address] Jun, [facility] [address] [id number] [address] [place] [address], [place] [address] Jun, [facility] [address] [id number] [address] [place] [address], [place] [address] Jun, [facility] [address] [id number] [address] [place] [address], [place] [address] Jun, [facility] [address] [id number] [address] [place] [address], [place] [address] 18 Jun, 2013 [facility] [address] [id number] [address] [place] [address], [place] [address] 18 Jun, 2013 [facility] [address] [id number] [address] [place] [address], [place] [address] 17 Jun, 2013 [facility] [address] [id number] [address] [place] [address], [place] [address] 17 Jun, 2013 [facility] [address] [id number] [address] [place] [address], [place] [address] 13 Jun, 2013 [facility] [address] [id number] [address] [place] [address], [place] [address] 12 Jun, 2013 [facility] [address] [id number] [address] [place] [address], [place] [address] 12 Jun, 2013 [facility] [address] [id number] [address] [place] [address], [place] [address] 09 Jun, 2013 [facility] [address] [id number] [address] [place] [address], [place] [address] 05 Jun, 2013 [facility] [address] [id number] [address] [place] [address], [place] [address] 05 Jun, 2013 [facility] [address] [id number] [address] [place] [address], [place] [address] 04 Jun, 2013 [facility] [address] [id number] [address] [place] [address], [place] [address] 04 Jun, 2013 [facility] [address] [id number] [address] [place] [address], [place] [address] 17 May, 2013 [facility] [address] [id number] [address] [place] [address], [place] [address] 17 May, 2013 [facility] [address] [id number] [address] [place] [address], [place] [address] May, [facility] [address] [id number] [address] [place] [address], [place] [address] May, [facility] [address] [id number] [address] [place] [address], [place] [address] May, [facility] [address] [id number] [address] [place] [address], [place] [address] May, [facility] [address] [id number] [address] [place] [address], [place] [address] Apr, [facility] [address] [id number] [address] [place] [address], [place] [address] Apr, [facility] [address] [id number] [address] [place] [address], [place] [address] Apr, [facility] [address] [id number] [address] [place] [address], [place] [address] Apr, [facility] [address] [id number] [address] [place] [address], [place] [address] Apr, [facility] [address] [id number] [address] [place] [address], [place] [address] Apr, [facility] [address] [id number] [address] [place] [address], [place] [address] Apr, [facility] [address] [id number] [address] [place] [address] Apr, [facility] [address] [id number] [address] [place] [address] 26 Mar, 2013 [facility] [address] [id number] [address] [place] [address] 24 Sep, 2012 [facility] [address] [id number] [address] [place] [address], [place] [address] 17 Mar, 2013 [facility] [address] [id number] [address] [place] [address] 17 Mar, 2012 [facility] [address] [id number] [address] [place] [address] 11 Mar, 2012 [facility] [address] [id number] [address] [place] [address] 10 Mar, 2013 [facility] [address] [id number] [address] [place] [address], [place] [address] 05 Mar, 2013 [facility] [address] [id number] [address] [place] [address], [place] [address] 04 Mar, 2013 [facility] [address] [id number] [address] [place] [address], [place] [address] Jan, [facility] [address] [id number] [address] [place] [address], [place] [address] Jan, [facility] [address] [id number] [address] [place] [address], [place] [address] Jan, [facility] [address] [id number] [address] [place] [address], [place] [address] Jan, [facility] [address] [id number] [address] [place] [address], [place] [address] Jan, [facility] [address] [id number] [address] [place] [address], [place] [address] Jan, [facility] [address] [id number] [address] [place] [address], [place] [address] Dec, [facility] [address] [id number] [address] [place] [address], [place] [address] Dec, [facility] [address] [id number] [address] [place] [address], [place] [address] Dec, [facility] [address] [id number] [address] [place] [address], [place] [address] Dec, [facility] [address] [id number] [address] [place] [address], [place] [address] 18 Dec, 2012 [facility] [address] [id number] [address] [place] [address], [place] [address] 17 Dec, 2012 [facility] [address] [id number] [address] [place] [address], [place] [address] 16 Dec, 2012 [facility] [address] [id number] [address] [place] [address], [place] [address] 16 Dec, 2012 [facility] [address] [id number] [address] [place] [address], [place] [address] 15 Dec, 2012 [facility] [address] [id number] [address] [place] [address], [place] [address] 10 Dec, 2012 [facility] [address] [id number] [address] [place] [address], [place] [address] Dec, [facility] [address] [id number] [address] [place] [address], [place] [address] Dec, [facility] [address] [id number] [address] [place] [address], [place] [address] Dec, [facility] [address] [id number] [address] [place] [address], [place] [address] Dec, [facility] [address] [id number] [address] [place] [address], [place] [address] Dec, [facility] [address] [id number] [address] [place] [address], [place] [address] Dec, [facility] [address] [id number] [address] [place] [address], [place] [address] October, [facility] [address] [id number] [address] [place] [address], [place] [address] October, [facility] [address] [id number] [address] [place] [address], [place] [address] October, [facility] [address] [id number] [address] [place] [address], [place] [address] October, [facility] [address] [id number] [address] [place] [address], [place] [address] October, [facility] [address] [id number] [address] [place] [address], [place] [address] October, [facility] [address] [id number] [address] [place] [address], [place] [address] October, [facility] [address] [id number] [address] [place] [address], [place] [address] Oct, [facility] [address] [id number] [address] [place] [address], [place] [address] Oct, [facility] [address] [id number] [address] [place] [address], [place] [address] Oct, [facility] [address] [id number] [address] [place] [address], [place] [address] Oct, [facility] [address] [id number] [address] [place] [address], [place] [address] Oct, [facility] [address] [id number] [address] [place] [address], [place] [address] 18 Oct, 2012 [facility] [address] [id number] [address] [place] [address], [place] [address] Oct, [facility] [address] [id number] [address] [place] [address], [place] [address] 15 Oct, 2012 [facility] [address] [id number] [address] [place] [address], [place] [address] Oct, [facility] [address] [id number] [address] [place] [address], [place] [address] Oct, [facility] [address] [id number] [address] [place] [address], [place] [address] Oct, [facility] [address] [id number] [address] [place] [address], [place] [address] Oct, [facility] [address] [id number] [address] [place] [address], [place] [address] Aug, [facility] [address] [id number] [address] [place] [address], [place] [address] Aug, [facility] [address] [id number] [address] [place] [address], [place] [address] Aug, [facility] [address] [id number] [address] [place] [address], [place] [address] 06 Aug, 2012 [facility] [address] [id number] [address] [place] [address], [place] [address] 05 Aug, 2012 [facility] [address] [id number] [address] [place] [address], [place] [address] 05 Aug, 2012 [facility] [address] [id number] [address] [place] [address], [place] [address] 20 Aug, 2012 [facility] [address] [id number] [address] [place] [address], [place] [address] 14 Aug, 2012 [facility] [address] [id number] [address] [place] [address], [place] [address] 12 Aug, 2012 [facility] [address] [id number] [address] [place] [address], [place] [address] 11 Aug, 2012 [facility] [address] [id number] [address] [place] [address], [place] [address] 29 Jul, 2012 [facility] [address] [id number] [address] [place] [address], [place] [address] 15 Jul, 2012 [facility] [address] [id number] [address] [place] [address], [place] [address] 08 Jul, 2012 [facility] [address] [id number] [address] [place] [address], [place] [address] 20 Jun, 2012 [facility] [address] [id number] [address] [place] [address], [place] [address] 18 Jun, 2012 [facility] [address] [id number] [address] [place] [address], [place] [address] 18 Jun, 2012 [facility] [address] [id number] [address] [place] [address], [place] [address] 18 Jun, 2012 [facility] [address] [id number] [address] [place] [address], [place] [address] 18 Jun, 2012 [facility] [address] [id number] [address] [place] [address], [place] [address] 14 Jun, 2012 [facility] [address] [id number] [address] [place] [address], [place] [address] 14 Jun, 2012 [facility] [address] [id number] [address] [place] [address], [place] [address] 13 Jun, 2012 [facility] [address] [id number] [address] [place] [address], [place] [address] 13 Jun, 2012 [facility] [address] [id number] [address] [place] [address], [place] [address] 11 Jun, 2012 [facility] [address] [id number] [address] [place] [address], [place] [address] 11 Jun, 2012 [facility] [address] [id number] [address] [place] [address], [place] [address] 11 Jun, 2012 [facility] [address] [id number] [address] [place] [address], [place] [address] 11 Jun, 2012 [facility] [address] [id number] [address] [place] [address], [place] [address] 07 Jun, 2012 [facility] [address] [id number] [address] [place] [address], [place] [address] Jun, [facility] [address] [id number] [address] [place] [address], [place] [address] 06 Jun, 2012 [facility] [address] [id number] [address] [place] [address], [place] [address] Jun, [facility] [address] [id number] [address] [place] [address], [place] [address] Jun, [facility] [address] [id number] [address] [place] [address], [place] [id number] Jun, [facility] [address] [id number] [address] [place] [address], [place] [address] 05 Jun, 2012 [facility] [address] [id number] [address] [place] [address], [place] [address] 05 Jun, 2012 [facility] [address] [id number] [address] [place] [id number] Jun, [facility] [address] [id number] [address] [place] [address], [place] [address] Jun, [facility] [address] [id number] [address] [place] [address] May, [facility] [address] [id number] [address] [place] [address] May, [facility] [address] [id number] [address] [place] [address] May, [facility] [address] [id number] [address] [place] [address], [place] [address] May, [facility] [address] [id number] [address] [place] [address] May, [facility] [address] [id number] [address] [place] [address] May, [facility] [address] [id number] [address] [place] [address] May, [facility] [address] [id number] [address] [place] [address] May, [facility] [address] [id number] [address] [place] [address] Apr, [facility] [address] [id number] [address] [place] [id number] 30 Apr, 2012 [facility] [address] [id number] [address] [place] [id number] 29 Apr, 2012 [facility] [address] [id number] [address] [place] [id number] Apr, [facility] [address] [id number] [address] [place] [id number] Apr, [facility] [address] [id number] [address] [place] [address] Apr, [facility] [address] [id number] [address] [place] [address], [place] [address] Apr, [facility] [address] [id number] [address] [place] [address], [place] [address] Apr, [facility] [address] [id number] [address] [place] [address], [place] [address] Apr, [facility] [address] [id number] [address] [place] [address], [place] [address] 08 Apr, 2012 [facility] [address] [id number] [address] [place] [address], [place] [address] Apr, [facility] [address] [id number] [address] [place] [address], [place] [address] Apr, [facility] [address] [id number] [address] [place] [address], [place] [address] 19 Mar, 2012 [facility] [address] [id number] [address] [place] [address], [place] [address] 18 Mar, 2012 [facility] [address] [id number] [address] [place] [address], [place] [address] Mar, [facility] [address] [id number] [address] [place] [address], [place] [address] Mar, [facility] [address] [id number] [address] [place] [id number] Mar, [facility] [address] [id number] [address] [place] [id number] Mar, [facility] [address] [id number] [address] [place] [id number] Mar, [facility] [address] [id number] [address] [place] [address], [place] [address] Jan, [facility] [address] [id number] [address] [place] [address], [place] [address] Jan, [facility] [address] [id number] [address] [place] [id number] Jan, [facility] [address] [id number] [address] [place] [address], [place] [id number] Jan, [facility] [address] [id number] [address] [place] [address], [place] [address] Jan, [facility] [address] [id number] [address] [place] [address], [place] [address] Jan, [facility] [address] [id number] [address] [place] [address], [place] [address] Jan, [facility] [address] [id number] [address] [place] [address], [place] [address] Jan, [facility] [address] [id number] [address] [place] [address], [place] [address] Jan, [facility] [address] [id number] [address] [place] [address], [place] [address] Jan, [facility] [address] [id number] [address] [place] [address], [place] [address] Jan, [facility] [address] [id number] [address] [place] [address], [place] [address] Dec, [facility] [address] [id number] [address] [place] [address], [place] [address] Dec, [facility] [address] [id number] [address] [place] [address], [place] [address] Dec, [facility] [address] [id number] [address] [place] [address], [place] [address] Dec, [facility] [address] [id number] [address] [place] [address], [place] [address] Dec, [facility] [address] [id number] [address] [place] [address], [place] [address] Dec, [facility] [address] [id number] [address] [place] [address], [place] [address] Dec, [facility] [address] [id number] [address] [place] [address], [place] [address] 17 Jan, 2012 [facility] [address] [id number] [address] [place] [address], [place] [address] 16 Jan, 2012 [facility] [address] [id number] [address] [place] [address], [place] [address] Dec, [facility] [address] [id number] [address] [place] [address], [place] [address] Dec, [facility] [address] [id number] [address] [place] [address], [place] [address] Dec, [facility] [address] [id number] [address] [place] [address], [place] [address] Dec, [facility] [address] [id number] [address] [place] [address], [place] [address] Dec, [facility] [address] [id number] [address] [place] [address], [place] [address] Dec, [facility] [address] [id number] [address] [place] [address], [place] [address] Dec, [facility] [address] [id number] [address] [place] [address], [place] [address] 15 Dec, 2011 [facility] [address] [id number] [address] [place] [address], [place] [address] Dec, [facility] [address] [id number] [address] [place] [address], [place] [address] 05 Dec, 2011 [facility] [address] [id number] [address] [place] [address], [place] [address] October, [facility] [address] [id number] [address] [place] [address], [place] [address] October, [facility] [address] [id number] [address] [place] [address], [place] [address] October, [facility] [address] [id number] [address] [place] [address], [place] [address] October, [facility] [address] [id number] [address] [place] [address], [place] [address] October, [facility] [address] [id number] [address] [place] [address], [place] [address] October, [facility] [address] [id number] [address] [place] [address], [place] [address] Oct, [facility] [address] [id number] [address] [place] [address], [place] [address] Oct, [facility] [address] [id number] [address] [place] [address], [place] [address] Oct, [facility] [address] [id number] [address] [place] [address], [place] [address] Oct, [facility] [address] [id number] [address] [place] [address], [place] [address] Oct, [facility] [address] [id number] [address] [place] [address], [place] [address] Oct, [facility] [address] [id number] [address] [place] [address], [place] [address] Oct, [facility] [address] [id number] [address] [place] [address], [place] [address] Aug, [facility] [address] [id number] [address] [place] [address], [place] [address] Aug, [facility] [address] [id number] [address] [place] [address], [place] [address] Aug, [facility] [address] [id number] [address] [place] [address], [place] [address] Aug, [facility] [address] [id number] [address] [place] [address], [place] [address] Aug, [facility] [address] [id number] [address] [place] [address], [place] [address] Aug, [facility] [address] [id number] [address] [place] [address], [place] [address] Aug, [facility] [address] [id number] [address] [place] [address], [place] [address] Aug, [facility] [address] [id number] [address] [place] [address], [place] [address] Aug, [facility] [address] [id number] [address] [place] [address], [place] [address] Jul, [facility] [address] [id number] [address] [place] [address], [place] [address] Jul, [facility] [address] [id number] [address] [place] [address], [place] [address] Jul, [facility] [address] [id number] [address] [place] [address], [place] [address] Jul, [facility] [address] [id number] [address] [place] [address], [place] [address] Jun, [facility] [address] [id number] [address] [place] [address], [place] [address] Jun, [facility] [address] [id number] [address] [place] [address], [place] [address] May, [facility] [address] [id number] [address] [place] [address], [place] [address] May, [facility] [address] [id number] [address] [place] [address], [place] [address] May, [facility] [address] [id number] [address] [place] [address], [place] [address] May, [facility] [address] [id number] [address] [place] [address], [place] [address] May, [facility] [address] [id number] [address] [place] [address], [place] [address] Apr, [facility] [address] [id number] [address] [place] [address], [place] [address] Apr, [facility] [address] [id number] [address] [place] [address] Apr, [facility] [address] [id number] [address] [place] [address] Jan, [facility] [address] [id number] [address] [place] [address] Dec, [facility] [address] [id number] [address] [place] [address] October, [facility] [address] [id number] [address] [place] [address] Jun, [facility] [address] [id number] [address] [place] [address] Apr, [facility] [address] [id number] [address] [place] [address] Apr, [facility] [address] [facility] [id number] [address] [place] [address] Apr, [facility] [address] [id number] [address] [place] [id number] Jun, IMMUNIZATIONS No Known Immunizations SOCIAL HISTORY [...]
--- OUTSIDE RECORDS SUMMARY | 2020-01-25 13:28 | XMS REPORT ---
Author Author Ana Brannon [facility] Address [address] [place] [address] Care Team Providers Care Tire Sorter Name Role Phone Clovis ANEUDY Unavailable PROBLEMS Type Condition ICD9-CM Code XND33-XN Code Onset Dates Condition S tatus SNOMED Code Problem Chronic hepatitis C without hepatic coma B18.2 Active 846532713 Problem Cannabis abuse F12.10 Active 02337 009 Problem Bipolar 1 disorder F31.9 Active 3 25006029 Problem Attention deficit hyperactivity disorder (ADHD), combi luciano type F90.2 Active 49594226 Problem Attention deficit R41.840 Active 76 076711 Problem Hot flashes due to menopause N95.1 A ctive 004540916 Problem H/O laminectomy Z98.89 Active 1616 71757 Problem Other chronic pain G89.29 Active 8 4704116 Problem Anxiety disorder, unspecified type F41.9 Active 751675585 Problem Bipolar disorder, in partial remission, most rec ent episode hypomanic F31.71 Active 432243054 ALLERGIES No Information ENCOUNTERS Encounter Location Date Diagnosis [facility] [address] [id number] [address] [place] [id number] Oct, [facility] [address] [facility] [id number] [address] [place] [address] Oct, [facility] [address] [facility] [id number] [address] [place] [phone] Aug, [facility] [address] [facility] [id number] [address] [place] [address] Jul, [facility] [address] [facility] [id number] [address] [place] [address] Jul, [facility] [address] [facility] [id number] [address] [place] [phone] Apr, [facility] [address] [id number] [address] [place] [phone] Mar, Hot flashes due to menopause N95.1 ; Anxiety disorder, unspecified type F41.9 ; Low back pain M54.5 and Encounter for immunization Z23 [facility] [address] [id number] [address] [place] [phone] Dec, Other chronic pain G89.29 an d Low back pain M54.5 [facility] [address] [id number] [address] [place] [address] October, [facility] [address] [id number] [address] [place] [phone] October, [facility] [address] [id number] [address] [place] [phone] October, [facility] [address] [facility] [id number] [address] [place] [phone] October, Other chronic pain G89.29 an d Chronic hepatitis C without hepatic coma B18.2 [facility] [address] [id number] [address] [place] [address] Aug, Bipolar disorder, in partial remission, most recent episode hypomanic F31.71 ; Attention deficit hyperactivity disorder (ADHD), combined type F90.2 and Anxiety disorder, unspecified type F41.9 [facility] [address] [id number] [address] [place] [phone] Aug, [facility] [address] [id number] [address] [place] [address] Aug, Bipolar disorder, in partial remission, most recent episode hypomanic F31.71 [facility] [address] [facility] [id number] [address] [place] [address] Aug, [facility] [address] [facility] [id number] [address] [place] [phone] Aug, Bipolar disorder, in partial remission, most recent episode hypomanic F31.71 [facility] [address] [id number] [address] [place] [address] Aug, Bipolar disorder, in partial remission, most recent episode hypomanic F31.71 ; Attention deficit hyperactivity disorder (ADHD), combined type F90.2 and Anxiety disorder, unspecified type F41.9 [facility] [address] [id number] [address] [place] [phone] Aug, Low back pain M54.5 and Pain in left wrist M25.532 [facility] [address] [id number] [address] [place] [phone] Aug, [facility] [address] [id number] [address] [place] [phone] Jun, [facility] [address] [id number] [address] [place] [phone] Apr, Bipolar disorder, in partial remission, most recent episode hypomanic F31.71 [facility] [address] [id number] [address] [place] [address] Apr, [facility] [address] [id number] [address] [place] [phone] Apr, Bipolar disorder, in partial remission, most recent episode hypomanic F31.71 ; Attention deficit hyperactivity disorder (ADHD), combined type F90.2 ; Anxiety disorder, unspecified type F41.9 and Other senior care (current) drug therapy Z79.899 [facility] [address] [id number] [address] [place] [address] Apr, Bipolar disorder, in partial remission, most recent episode hypomanic F31.71 [facility] [address] [id number] [address] [place] [address] Apr, Bipolar disorder, in partial remission, most recent episode hypomanic F31.71 [facility] [address] [id number] [address] [place] [address] Mar, [facility] [address] [id number] [address] [place] [phone] Mar, Bipolar disorder, in partial remission, most recent episode hypomanic F31.71 ; Encounter for immunization Z23 and Low back pain M54.5 [facility] [address] [id number] [address] [place] [phone] 17 Mar, 2018 Bipolar disorder, in partial remission, most recent episode hypomanic F31.71 [facility] [address] [id number] [address] [place] [address] Mar, Bipolar disorder, in partial remission, most recent episode hypomanic F31.71 [facility] [address] [id number] [address] [place] [address] Jan, Bipolar disorder, in partial remission, most recent episode hypomanic F31.71 [facility] [address] [id number] [address] [place] [address] Jan, Bipolar disorder, in partial remission, most recent episode hypomanic F31.71 [facility] [address] [id number] [address] [place] [address] Dec, Bipolar disorder, in partial remission, most recent episode hypomanic F31.71 [facility] [address] [facility] [id number] [address] [place] [address] Dec, Bipolar disorder, in partial remission, most recent episode hypomanic F31.71 ; Attention deficit hyperactivity disorder (ADHD), combined type F90.2 ; Anxiety disorder, unspecified type F41.9 and Other senior care (current) drug therapy Z79.899 [facility] [address] [id number] [address] [place] [address] Dec, Bipolar disorder, in partial remission, most recent episode hypomanic F31.71 [facility] [address] [facility] [id number] [address] [place] [address] Dec, Bipolar disorder, in partial remission, most recent episode hypomanic F31.71 [facility] [address] [facility] [id number] [address] [place] [address] October, Bipolar disorder, in partial remission, most recent episode hypomanic F31.71 [facility] [address] [id number] [address] [place] [id number] October, [facility] [address] [id number] [address] [place] [phone] October, [facility] [address] [id number] [address] [place] [phone] Oct, Bipolar disorder, in partial remission, most recent episode hypomanic F31.71 ; Attention deficit hyperactivity disorder (ADHD), combined type F90.2 ; Anxiety disorder, unspecified type F41.9 and Encounter for drug screening Z02.83 [facility] [address] [id number] [address] [place] [phone] Oct, Bipolar disorder, in partial remission, most recent episode hypomanic F31.71 [facility] [address] [id number] [address] [place] [address] Oct, Bipolar disorder, in partial remission, most recent episode hypomanic F31.71 [facility] [address] [facility] [id number] [address] [place] [phone] Aug, Bipolar disorder, in partial remission, most recent episode hypomanic F31.71 [facility] [address] [facility] [id number] [address] [place] [address] Aug, Bipolar disorder, in partial remission, most recent episode hypomanic F31.71 [facility] [address] [id number] [address] [place] [address] Aug, Bipolar disorder, in partial remission, most recent episode hypomanic F31.71 [facility] [address] [facility] [id number] [address] [place] [address] Jul, Bipolar disorder, in partial remission, most recent episode hypomanic F31.71 ; Attention deficit hyperactivity disorder (ADHD), combined type F90.2 and Anxiety disorder, unspecified type F41.9 [facility] [address] [id number] [address] [place] [address] Jul, Bipolar disorder, in partial remission, most recent episode hypomanic F31.71 [facility] [address] [id number] [address] [place] [address] Jun, Bipolar disorder, in partial remission, most recent episode hypomanic F31.71 [facility] [address] [id number] [address] [place] [phone] May, Bipolar disorder, in partial remission, most recent episode hypomanic F31.71 [facility] [address] [id number] [address] [place] [address] May, Bipolar disorder, in partial remission, most recent episode hypomanic F31.71 [facility] [address] [facility] [id number] [address] [place] [phone] Apr, [facility] [address] [facility] [id number] [address] [place] [phone] Apr, Bipolar disorder, in partial remission, most recent episode hypomanic F31.71 ; Attention deficit hyperactivity disorder (ADHD), combined type F90.2 ; Anxiety disorder, unspecified type F41.9 and Cannabis abuse F12.10 [facility] [address] [facility] [id number] [address] [place] [phone] Apr, Attention deficit hyperactiv ity disorder (ADHD), combined type F90.2 [facility] [address] [id number] [address] [place] [address] Mar, Attention deficit hyperactiv ity disorder (ADHD), combined type F90.2 [facility] [address] [id number] [address] [place] [id number] 14 Mar, 2017 Anxiety disorder, unspecifie d type F41.9 [facility] [address] [facility] [id number] [address] [place] [address] Jan, Attention deficit hyperactiv ity disorder (ADHD), combined type F90.2 [facility] [address] [place] [id number] [address] [place] [phone] Jan, Anxiety disorder, unspecifie d type F41.9 [facility] [address] [place] [id number] [address] [place] [address] Jan, Other chronic pain G89.29 ; Chronic hepatitis C without hepatic coma B18.2 and Bipolar 1 disorder F31.9 [facility] [address] [place] [id number] [address] [place] [phone] Dec, Attention deficit hyperactiv ity disorder (ADHD), combined type F90.2 [facility] [address] [place] [id number] [address] [place] [address] Dec, Bipolar disorder, in partial remission, most recent episode hypomanic F31.71 ; Attention deficit hyperactivity disorder (ADHD), combined type F90.2 and Anxiety disorder, unspecified type F41.9 [place] [address] [place] [id number] [place] [address] Dec, Bipolar disorder, in partial remission, most recent episode hypomanic F31.71 ; Attention deficit hyperactivity disorder (ADHD), combined type F90.2 and Anxiety disorder, unspecified type F41.9 [place] [address] [place] [id number] [place] [address] Dec, Bipolar 1 disorder F31.9 and Attention deficit R41.840 [place] [address] [place] [id number] [address] [place] [address] Oct, Other chronic pain G89.29 ; Alopecia L65.9 and Screening, lipid Z13.220 [facility] [address] [place] [id number] [address] [place] [address] Oct, [place] [address] [place] [id number] [place] [address] Aug, [place] [address] [place] [id number] [place] [address] Aug, Eustachian tube dysfunction, right H69.81 ; Vertigo R42 and Other chronic pain G89.29 [facility] [address] [id number] [address] [place] [address] Aug, [facility] [address] [id number] [address] [place] [address] Jun, [facility] [address] [id number] [address] [place] [address] Jun, Low back pain M54.5 and Othe r chronic pain G89.29 [facility] [address] [id number] [address] [place] [address] Jun, [facility] [address] [id number] [address] [place] [address] May, [facility] [address] [id number] [address] [place] [phone] Jan, [facility] [address] [id number] [address] [place] [address] Dec, [facility] [address] [id number] [address] [place] [phone] Dec, [facility] [address] [id number] [address] [place] [id number] Jun, [facility] [address] [facility] [id number] [address] [place] [address] Apr, Eustachian tube dysfunction, unspecified laterality H69.80 ; Hot flashes N95.1 and Encounter for immunization Z23 [facility] [address] [id number] [address] [place] [phone] Jan, [facility] [address] [id number] [address] [place] [phone] Jan, [facility] [address] [id number] [address] [place] [phone] Jan, [facility] [address] [id number] [address] [place] [address] Jan, [facility] [address] [id number] [address] [place] [address] Jan, Encounter to establish care V65.8 ; Bipolar 1 disorder 296.7 ; Abdominal pain 789.00 ; Constipation 564.00 ; Hard of hearing 389.9 and Drug abuse 305.90 [facility] [address] [id number] [address] [place] [address] Dec, [facility] [address] [id number] [address] [place] [address] October, [facility] [address] [id number] [address] [place] [address] October, [facility] [address] [id number] [address] [place] [address] Oct, [facility] [address] [id number] [address] [place] [address] Oct, [facility] [address] [id number] [address] [place] [address] Oct, [facility] [address] [id number] [address] [place] [address] Aug, [facility] [address] [id number] [address] [place] [address] Aug, [facility] [address] [id number] [address] [place] [phone] Aug, [facility] [address] [id number] [address] [place] [phone] Aug, [facility] [address] [id number] [address] [place] [address] Aug, [facility] [address] [id number] [address] [place] [phone] Aug, [facility] [address] [id number] [address] [place] [address] Aug, [facility] [address] [id number] [address] [place] [address], [place] [address] Aug, 2014 [facility] [address] [id number] [address] [place] [address], [place] [address] Aug, 2014 [facility] [address] [id number] [address] [place] [address], [place] [address] Aug, 2014 [facility] [address] [id number] [address] [place] [address], [place] [address] Aug, 2014 [facility] [address] [id number] [address] [place] [address], [place] [address] Aug, 2014 [facility] [address] [id number] [address] [place] [address], [place] [address] Aug, 2014 [facility] [address] [id number] [address] [place] [address], [place] [address] Aug, 2014 [facility] [address] [id number] [address] [place] [address], [place] [address] Aug, [facility] [address] [id number] [address] [place] [address], [place] [address] Jul, [facility] [address] [id number] [address] [place] [address], [place] [address] Jul, [facility] [address] [id number] [address] [place] [address], [place] [address] Jul, [facility] [address] [id number] [address] [place] [address], [place] [address] Jul, [facility] [address] [id number] [address] [place] [address], [place] [address] Jul, [facility] [address] [id number] [address] [place] [address], [place] [address] Jul, [facility] [address] [id number] [address] [place] [address], [place] [address] Jul, [facility] [address] [id number] [address] [place] [address], [place] [address] Jul, [facility] [address] [id number] [address] [place] [address], [place] [address] Jun, [facility] [address] [id number] [address] [place] [address], [place] [address] Jun, [facility] [address] [id number] [address] [place] [address], [place] [address] Jun, [facility] [address] [id number] [address] [place] [address], [place] [address] Jun, [facility] [address] [id number] [address] [place] [address], [place] [address] Jun, [facility] [address] [id number] [address] [place] [address], [place] [address] Jun, [facility] [address] [id number] [address] [place] [address], [place] [address] Jun, [facility] [address] [id number] [address] [place] [address], [place] [address] Jun, [facility] [address] [id number] [address] [place] [address], [place] [address] Jun, [facility] [address] [id number] [address] [place] [address], [place] [address] Jun, [facility] [address] [id number] [address] [place] [address], [place] [address] Jun, [facility] [address] [id number] [address] [place] [address], [place] [address] May, [facility] [address] [id number] [address] [place] [address], [place] [address] May, [facility] [address] [id number] [address] [place] [address], [place] [address] May, [facility] [address] [id number] [address] [place] [address], [place] [address] May, [facility] [address] [id number] [address] [place] [address], [place] [address] May, [facility] [address] [id number] [address] [place] [address], [place] [address] May, [facility] [address] [id number] [address] [place] [address], [place] [address] May, [facility] [address] [id number] [address] [place] [address], [place] [address] Apr, [facility] [address] [id number] [address] [place] [address], [place] [address] Apr, [facility] [address] [id number] [address] [place] [address], [place] [address] Apr, [facility] [address] [id number] [address] [place] [address], [place] [address] Apr, [facility] [address] [id number] [address] [place] [address], [place] [address] Apr, [facility] [address] [id number] [address] [place] [address], [place] [address] Apr, [facility] [address] [id number] [address] [place] [address], [place] [address] Mar, [facility] [address] [id number] [address] [place] [address], [place] [address] 29 Mar, 2014 [facility] [address] [id number] [address] [place] [address], [place] [address] Mar, [facility] [address] [id number] [address] [place] [address], [place] [address] Mar, [facility] [address] [id number] [address] [place] [address], [place] [address] Mar, [facility] [address] [id number] [address] [place] [address], [place] [address] Mar, [facility] [address] [id number] [address] [place] [address], [place] [address] Jan, [facility] [address] [id number] [address] [place] [address], [place] [address] Jan, [facility] [address] [id number] [address] [place] [address], [place] [address] Jan, [facility] [address] [id number] [address] [place] [address], [place] [address] Jan, [facility] [address] [id number] [address] [place] [address], [place] [address] Dec, [facility] [address] [id number] [address] [place] [address], [place] [address] Dec, [facility] [address] [id number] [address] [place] [address], [place] [address] Dec, [facility] [address] [id number] [address] [place] [address], [place] [address] Dec, [facility] [address] [id number] [address] [place] [address], [place] [address] Dec, [facility] [address] [id number] [address] [place] [address], [place] [address] Dec, [facility] [address] [id number] [address] [place] [address], [place] [id number] Dec, [facility] [address] [id number] [address] [place] [address], [place] [address] Dec, [facility] [address] [id number] [address] [place] [address], [place] [address] Dec, [facility] [address] [id number] [address] [place] [address], [place] [address] Dec, [facility] [address] [id number] [address] [place] [address], [place] [id number] Dec, [facility] [address] [id number] [address] [place] [address], [place] [address] Dec, [facility] [address] [id number] [address] [place] [address], [place] [address] October, [facility] [address] [id number] [address] [place] [address], [place] [id number] October, [facility] [address] [id number] [address] [place] [address], [place] [address] October, [facility] [address] [id number] [address] [place] [address], [place] [address] October, [facility] [address] [id number] [address] [place] [address], [place] [address] October, [facility] [address] [id number] [address] [place] [address], [place] [address] October, [facility] [address] [id number] [address] [place] [address], [place] [id number] Oct, [facility] [address] [id number] [address] [place] [address], [place] [address] Oct, [facility] [address] [id number] [address] [place] [place] [address] [address] Oct, [facility] [address] [id number] [address] [place] [address], [place] [address] Oct, [facility] [address] [id number] [address] [place] [address], [place] [address] Oct, [facility] [address] [id number] [address] [place] [address], [place] [address] Oct, [facility] [address] [id number] [address] [place] [address], [place] [address] Oct, [facility] [address] [id number] [address] [place] [address], [place] [address] Oct, [facility] [address] [id number] [address] [place] [address], [place] [address] Oct, [facility] [address] [id number] [address] [place] [address], [place] [address] Oct, [facility] [address] [id number] [facility] [place] [address] 08 Oct, 2013 [facility] [address] [id number] [facility] [place] [address] 08 Oct, 2013 [facility] [address] [id number] [facility] [place] [address] 15 Aug, 2013 [facility] [address] [id number] [address] [place] [address], [place] [address] 15 Aug, 2013 [facility] [address] [id number] [address] [place] [address], [place] [address] Aug, [facility] [address] [id number] [address] [place] [address], [place] [address] Aug, [facility] [address] [id number] [address] [place] [address], [place] [address] Aug, [facility] [address] [id number] [address] [place] [address], [place] [address] Aug, [facility] [address] [id number] [address] [place] [address], [place] [address] Aug, [facility] [address] [id number] [address] [place] [address], [place] [address] Aug, [facility] [address] [id number] [address] [place] [address], [place] [address] Aug, [facility] [address] [id number] [address] [place] [address], [place] [address] Aug, [facility] [address] [id number] [address] [place] [address], [place] [address] Aug, [facility] [address] [id number] [address] [place] [address], [place] [address] Aug, [facility] [address] [id number] [address] [place] [address], [place] [address] Aug, [facility] [address] [id number] [address] [place] [address], [place] [address] 20 Aug, 2013 [facility] [address] [id number] [address] [place] [address], [place] [address] 14 Aug, 2013 [facility] [address] [id number] [address] [place] [address], [place] [address] 14 Aug, 2013 [facility] [address] [id number] [address] [place] [address], [place] [address] 14 Aug, 2013 [facility] [address] [id number] [address] [place] [address], [place] [address] 14 Aug, 2013 [facility] [address] [id number] [address] [place] [address], [place] [address] 07 Aug, 2013 [facility] [address] [id number] [address] [place] [address], [place] [address] 07 Aug, 2013 [facility] [address] [id number] [address] [place] [address], [place] [address] 06 Aug, 2013 [facility] [address] [id number] [address] [place] [address], [place] [address] 06 Aug, 2013 [facility] [address] [id number] [address] [place] [address], [place] [address] 04 Aug, 2013 [facility] [address] [id number] [address] [place] [address], [place] [address] 04 Aug, 2013 [facility] [address] [id number] [address] [place] [address], [place] [address] Aug, [facility] [address] [id number] [address] [place] [address], [place] [address] Jul, [facility] [address] [id number] [address] [place] [address], [place] [address] Jul, [facility] [address] [id number] [address] [place] [address], [place] [address] Jul, [facility] [address] [id number] [address] [place] [address], [place] [address] Jul, [facility] [address] [id number] [address] [place] [address], [place] [address] Jul, [facility] [address] [id number] [address] [place] [address], [place] [address] Jul, [facility] [address] [id number] [address] [place] [address], [place] [address] Jul, [facility] [address] [id number] [address] [place] [address], [place] [address] Jul, [facility] [address] [id number] [address] [place] [address], [place] [address] Jul, [facility] [address] [id number] [address] [place] [address], [place] [address] Jul, [facility] [address] [id number] [address] [place] [address], [place] [address] Jul, [facility] [address] [id number] [address] [place] [address], [place] [address] Jul, [facility] [address] [id number] [address] [place] [address], [place] [address] Jul, [facility] [address] [id number] [address] [place] [address], [place] [address] Jul, [facility] [address] [id number] [address] [place] [address], [place] [address] Jul, [facility] [address] [id number] [address] [place] [address], [place] [address] Jul, [facility] [address] [id number] [address] [place] [address], [place] [address] Jul, [facility] [address] [id number] [address] [place] [address], [place] [address] Jul, [facility] [address] [id number] [address] [place] [address], [place] [address] Jul, [facility] [address] [id number] [address] [place] [address], [place] [address] Jul, [facility] [address] [id number] [address] [place] [address], [place] [address] Jun, [facility] [address] [id number] [address] [place] [address], [place] [address] Jun, [facility] [address] [id number] [address] [place] [address], [place] [address] Jun, [facility] [address] [id number] [address] [place] [address], [place] [address] Jun, [facility] [address] [id number] [address] [place] [address], [place] [address] Jun, [facility] [address] [id number] [address] [place] [address], [place] [address] Jun, [facility] [address] [id number] [address] [place] [address], [place] [address] Jun, [facility] [address] [id number] [address] [place] [address], [place] [address] Jun, [facility] [address] [id number] [address] [place] [address], [place] [address] Jun, [facility] [address] [id number] [address] [place] [address], [place] [address] Jun, [facility] [address] [id number] [address] [place] [address], [place] [address] Jun, [facility] [address] [id number] [address] [place] [address], [place] [address] Jun, [facility] [address] [id number] [address] [place] [address], [place] [address] Jun, [facility] [address] [id number] [address] [place] [address], [place] [address] Jun, [facility] [address] [id number] [address] [place] [address], [place] [address] Jun, [facility] [address] [id number] [address] [place] [address], [place] [address] 18 Jun, 2013 [facility] [address] [id number] [address] [place] [address], [place] [address] 18 Jun, 2013 [facility] [address] [id number] [address] [place] [address], [place] [address] 17 Jun, 2013 [facility] [address] [id number] [address] [place] [address], [place] [address] 17 Jun, 2013 [facility] [address] [id number] [address] [place] [address], [place] [address] 13 Jun, 2013 [facility] [address] [id number] [address] [place] [address], [place] [address] Jun, [facility] [address] [id number] [address] [place] [address], [place] [address] Jun, [facility] [address] [id number] [address] [place] [address], [place] [address] Jun, [facility] [address] [id number] [address] [place] [address], [place] [address] 05 Jun, 2013 [facility] [address] [id number] [address] [place] [address], [place] [address] 05 Jun, 2013 [facility] [address] [id number] [address] [place] [address], [place] [address] 04 Jun, 2013 [facility] [address] [id number] [address] [place] [address], [place] [address] 04 Jun, 2013 [facility] [address] [id number] [address] [place] [address], [place] [address] 17 May, 2013 [facility] [address] [id number] [address] [place] [address], [place] [address] 17 May, 2013 [facility] [address] [id number] [address] [place] [address], [place] [address] May, [facility] [address] [id number] [address] [place] [address] [address] May, [facility] [address] [id number] [address] [place] [address], [place] [address] May, [facility] [address] [id number] [address] [place] [address], [place] [address] May, [facility] [address] [id number] [address] [place] [address], [place] [address] Apr, [facility] [address] [id number] [address] [place] [address], [place] [address] Apr, [facility] [address] [id number] [address] [place] [address], [place] [address] Apr, [facility] [address] [id number] [address] [place] [address], [place] [address] Apr, [facility] [address] [id number] [address] [place] [address], [place] [address] Apr, [facility] [address] [id number] [address] [place] [address], [place] [address] Apr, [facility] [address] [id number] [address] [place] [address], [place] [address] Apr, [facility] [address] [id number] [address] [place] [address] Apr, [facility] [address] [id number] [address] [place] [address] 26 Mar, 2012 [facility] [address] [id number] [address] [place] [address] 24 Sep, 2012 [facility] [address] [id number] [address] [place] [address], [place] [address] 17 Sep2012 [facility] [address] [id number] [address] [place] [address] 17 Sep, 2012 [facility] [address] [id number] [address] [place] [address], [place] [address] 11 Mar, 2013 [facility] [address] [id number] [facility] [place] [address] 10 Mar, 2013 [facility] [address] [id number] [address] [place] [address], [place] [address] 05 Mar, 2013 [facility] [address] [id number] [address] [place] [address], [place] [address] 04 Mar, 2013 [facility] [address] [id number] [address] [place] [address], [place] [address] 20 Jan, 2013 [facility] [address] [id number] [address] [place] [address], [place] [address] Jan, [facility] [address] [id number] [address] [place] [address], [place] [address] 14 Jan, 2013 [facility] [address] [id number] [address] [place] [address], [place] [address] Jan, [facility] [address] [id number] [address] [place] [address], [place] [address] Jan, [facility] [address] [id number] [address] [place] [address], [place] [address] Jan, [facility] [address] [id number] [address] [place] [address], [place] [address] Dec, [facility] [address] [id number] [address] [place] [address], [place] [address] Dec, [facility] [address] [id number] [address] [place] [address], [place] [address] Dec, [facility] [address] [id number] [address] [place] [address], [place] [address] Dec, [facility] [address] [id number] [address] [place] [address], [place] [address] 18 Dec, 2012 [facility] [address] [id number] [address] [place] [address], [place] [address] 17 Dec, 2012 [facility] [address] [id number] [address] [place] [address], [place] [address] 16 Dec, 2012 [facility] [address] [id number] [address] [place] [address], [place] [address] 16 Dec, 2012 [facility] [address] [id number] [address] [place] [address], [place] [address] 15 Dec, 2012 [facility] [address] [id number] [address] [place] [address], [place] [address] 10 Dec, 2012 [facility] [address] [id number] [address] [place] [address], [place] [address] Dec, [facility] [address] [id number] [address] [place] [address], [place] [address] Dec, [facility] [address] [id number] [address] [place] [address], [place] [address] Dec, [facility] [address] [id number] [address] [place] [address], [place] [address] Dec, [facility] [address] [id number] [address] [place] [address], [place] [address] Dec, [facility] [address] [id number] [address] [place] [address], [place] [address] Dec, [facility] [address] [id number] [address] [place] [address], [place] [address] October, [facility] [address] [id number] [address] [place] [address], [place] [address] October, [facility] [address] [id number] [address] [place] [address], [place] [address] October, [facility] [address] [id number] [address] [place] [address], [place] [address] October, [facility] [address] [id number] [address] [place] [address], [place] [address] October, [facility] [address] [id number] [address] [place] [address], [place] [address] October, [facility] [address] [id number] [address] [place] [address], [place] [address] October, [facility] [address] [id number] [address] [place] [address], [place] [address] Oct, [facility] [address] [id number] [address] [place] [address], [place] [address] Oct, [facility] [address] [id number] [address] [place] [address], [place] [address] Oct, [facility] [address] [id number] [address] [place] [address], [place] [address] Oct, [facility] [address] [id number] [address] [place] [address], [place] [address] Oct, [facility] [address] [id number] [address] [place] [address], [place] [address] Oct, [facility] [address] [id number] [address] [place] [address], [place] [address] Oct, [facility] [address] [id number] [address] [place] [address], [place] [address] 15 Oct, 2012 [facility] [address] [id number] [address] [place] [address], [place] [address] Oct, [facility] [address] [id number] [address] [place] [address], [place] [address] Oct, [facility] [address] [id number] [address] [place] [address], [place] [address] Oct, [facility] [address] [id number] [address] [place] [address], [place] [address] Oct, [facility] [address] [id number] [address] [place] [address], [place] [address] Aug, [facility] [address] [id number] [address] [place] [address], [place] [address] Aug, [facility] [address] [id number] [address] [place] [address], [place] [address] Aug, [facility] [address] [id number] [address] [place] [address], [place] [address] 06 Aug, 2012 [facility] [address] [id number] [address] [place] [address], [place] [address] 05 Aug, 2012 [facility] [address] [id number] [address] [place] [address], [place] [address] 05 Aug, 2012 [facility] [address] [id number] [address] [place] [address], [place] [address] 20 Aug, 2012 [facility] [address] [id number] [address] [place] [address], [place] [address] 14 Aug, 2012 [facility] [address] [id number] [address] [place] [address], [place] [address] 12 Aug, 2012 [facility] [address] [id number] [address] [place] [address], [place] [address] Aug, [facility] [address] [id number] [address] [place] [address], [place] [address] 29 Jul, 2012 [facility] [address] [id number] [address] [place] [address], [place] [address] 15 Jul, 2012 [facility] [address] [id number] [address] [place] [address], [place] [address] 08 Jul, 2012 [facility] [address] [id number] [address] [place] [address], [place] [address] 20 Jun, 2012 [facility] [address] [id number] [address] [place] [address], [place] [address] 18 Jun, 2012 [facility] [address] [id number] [address] [place] [address], [place] [address] 18 Jun, 2012 [facility] [address] [id number] [address] [place] [address], [place] [address] 18 Jun, 2012 [facility] [address] [id number] [address] [place] [address], [place] [address] 18 Jun, 2012 [facility] [address] [id number] [address] [place] [address] [address] 14 Jun, 2012 [facility] [address] [id number] [address] [place] [address], [place] [address] 14 Jun, 2012 [facility] [address] [id number] [address] [place] [address], [place] [address] 13 Jun, 2012 [facility] [address] [id number] [address] [place] [address], [place] [address] 13 Jun, 2012 [facility] [address] [id number] [address] [place] [address], [place] [address] 11 Jun, 2012 [facility] [address] [id number] [address] [place] [address], [place] [address] 11 Jun, 2012 [facility] [address] [id number] [address] [place] [address], [place] [address] 11 Jun, 2012 [facility] [address] [id number] [address] [place] [address], [place] [address] Jun, [facility] [address] [id number] [address] [place] [address], [place] [address] 07 Jun, 2012 [facility] [address] [id number] [address] [place] [address], [place] [address] 07 Jun, 2012 [facility] [address] [id number] [address] [place] [address], [place] [address] 06 Jun, 2012 [facility] [address] [id number] [address] [place] [address], [place] [address] Jun, [facility] [address] [id number] [address] [place] [address], [place] [address] Jun, [facility] [address] [id number] [address] [place] [address], [place] [address] Jun, [facility] [address] [id number] [address] [place] [address], [place] [address] 05 Jun, 2012 [facility] [address] [id number] [address] [place] [address], [place] [address] 05 Jun, 2012 [facility] [address] [id number] [address] [place] [address], [place] [address] Jun, [facility] [address] [id number] [address] [place] [address], [place] [address] Jun, [facility] [address] [id number] [address] [place] [address], [place] [address] May, [facility] [address] [id number] [address] [place] [address], [place] [address] May, [facility] [address] [id number] [address] [place] [address], [place] [address] May, [facility] [address] [id number] [address] [place] [address], [place] [address] May, [facility] [address] [id number] [address] [place] [address], [place] [address] May, [facility] [address] [id number] [address] [place] [address], [place] [address] May, [facility] [address] [id number] [address] [place] [address], [place] [address] May, [facility] [address] [id number] [address] [place] [address], [place] [address] May, [facility] [address] [id number] [address] [place] [address], [place] [address] Apr, [facility] [address] [id number] [address] [place] [address], [place] [address] 30 Apr, 2012 [facility] [address] [id number] [address] [place] [address], [place] [address] 29 Apr, 2012 [facility] [address] [id number] [address] [place] [address], [place] [address] Apr, [facility] [address] [id number] [address] [place] [address], [place] [address] Apr, [facility] [address] [id number] [address] [place] [address] Apr, [facility] [address] [id number] [address] [place] [address], [place] [address] Apr, [facility] [address] [id number] [address] [place] [address], [place] [address] Apr, [facility] [address] [id number] [address] [place] [address], [place] [address] Apr, [facility] [address] [id number] [address] [place] [address], [place] [address] Apr, [facility] [address] [id number] [address] [place] [address], [place] [address] Apr, [facility] [address] [id number] [address] [place] [address], [place] [address] Apr, [facility] [address] [id number] [address] [place] [address], [place] [address] Mar, [facility] [address] [id number] [address] [place] [address], [place] [address] 18 Mar, 2012 [facility] [address] [id number] [address] [place] [address], [place] [address] Mar, [facility] [address] [id number] [address] [place] [id number] Mar, [facility] [address] [id number] [address] [place] [id number] Mar, [facility] [address] [id number] [place] [id number] Mar, [facility] [address] [id number] [address] [place] [id number] Mar, [facility] [address] [id number] [address] [place] [id number] Jan, [facility] [address] [id number] [address] [place] [id number] Jan, [facility] [address] [id number] [address] [place] [address] [id number] Jan, [facility] [address] [id number] [address] [place] [address], [place] [id number] Jan, [facility] [address] [id number] [address] [place] [address], [place] [address] Jan, [facility] [address] [id number] [address] [place] [address], [place] [id number] Jan, [facility] [address] [id number] [address] [place] [address], [place] [id number] Jan, [facility] [address] [id number] [address] [place] [address], [place] [address] Jan, [facility] [address] [id number] [address] [place] [address], [place] [id number] Jan, [facility] [address] [id number] [address] [place] [address], [place] [address] Jan, [facility] [address] [id number] [address] [place] [address], [place] [address] Jan, [facility] [address] [id number] [address] [place] [address], [place] [address] Dec, [facility] [address] [id number] [address] [place] [address], [place] [address] Dec, [facility] [address] [id number] [address] [place] [address], [place] [address] Dec, [facility] [address] [id number] [address] [place] [address], [place] [id number] Dec, [facility] [address] [id number] [address] [place] [address], [place] [address] Dec, [facility] [address] [id number] [address] [place] [address], [place] [address] Dec, [facility] [address] [id number] [address] [place] [address], [place] [address] Dec, [facility] [address] [id number] [facility] [place] [address] 17 Jan, 2012 [facility] [address] [id number] [address] [place] [address], [place] [id number] 16 Jan, 2012 [facility] [address] [id number] [address] [place] [address], [place] [id number] 13 Jan, 2012 [facility] [address] [id number] [address] [place] [address], [place] [address] 13 Jan, 2012 [facility] [address] [id number] [address] [place] [address], [place] [address] Dec, [facility] [address] [id number] [address] [place] [address], [place] [address] Dec, [facility] [address] [id number] [address] [place] [address], [place] [id number] Dec, [facility] [address] [id number] [address] [place] [address], [place] [id number] Dec, [facility] [address] [id number] [address] [place] [address], [place] [address] Dec, [facility] [address] [id number] [address] [place] [address], [place] [address] 15 Dec, 2011 [facility] [address] [id number] [address] [place] [address], [place] [id number] 06 Dec, 2011 [facility] [address] [id number] [address] [place] [address], [place] [id number] 05 Dec, 2011 [facility] [address] [id number] [address] [place] [address], [place] [id number] October, [facility] [address] [id number] [address] [place] [address], [place] [address] October, [facility] [address] [id number] [address] [place] [address], [place] [address] October, [facility] [address] [id number] [address] [place] [address], [place] [address] October, [facility] [address] [id number] [address] [place] [address], [place] [address] October, [facility] [address] [id number] [address] [place] [address], [place] [address] October, [facility] [address] [id number] [address] [place] [address], [place] [address] Oct, [facility] [address] [id number] [address] [place] [address], [place] [address] Oct, [facility] [address] [id number] [address] [place] [address], [place] [address] Oct, [facility] [address] [id number] [address] [place] [address], [place] [address] Oct, [facility] [address] [id number] [address] [place] [address], [place] [address] Oct, [facility] [address] [id number] [address] [place] [address], [place] [address] Oct, [facility] [address] [id number] [address] [place] [address], [place] [address] Oct, [facility] [address] [id number] [address] [place] [address], [place] [address] Aug, [facility] [address] [id number] [address] [place] [address], [place] [address] Aug, [facility] [address] [id number] [address] [place] [address], [place] [address] Aug, [facility] [address] [id number] [address] [place] [address], [place] [address] Aug, [facility] [address] [id number] [address] [place] [address], [place] [address] Aug, [facility] [address] [id number] [address] [place] [address], [place] [address] Aug, [facility] [address] [id number] [address] [place] [address], [place] [address] Aug, [facility] [address] [id number] [address] [place] [address], [place] [address] Aug, [facility] [address] [id number] [address] [place] [address], [place] [address] 08 Aug, 2011 [facility] [address] [id number] [address] [place] [address], [place] [address] Jul, [facility] [address] [id number] [address] [place] [address], [place] [address] Jul, [facility] [address] [id number] [address] [place] [address], [place] [address] Jul, [facility] [address] [id number] [address] [place] [address], [place] [address] Jul, [facility] [address] [id number] [address] [place] [address], [place] [address] Jun, [facility] [address] [id number] [address] [place] [address], [place] [address] Jun, [facility] [address] [id number] [address] [place] [address], [place] [address] May, [facility] [address] [id number] [address] [place] [address], [place] [address] May, [facility] [address] [id number] [address] [place] [address], [place] [address] May, [facility] [address] [id number] [address] [place] [address], [place] [address] May, [facility] [address] [id number] [address] [place] [address], [place] [address] May, [facility] [address] [id number] [address] [place] [address], [place] [address] 28 Apr, 2011 [facility] [address] [id number] [address] [place] [address], [place] [address] Apr, [facility] [address] [id number] [address] [place] [id number] Apr, [facility] [address] [id number] [address] [place] [id number] Jan, [facility] [address] [id number] [address] [place] [id number] Dec, [facility] [address] [id number] [address] [place] [id number] October, [facility] [address] [id number] [address] [place] [id number] Jun, [facility] [address] [id number] [address] [place] [id number] Apr, [facility] [address] [id number] [address] [place] [id number] Apr, [facility] [address] [id number] [address] [place] [id number] Apr, [facility] [address] [id number] [address] [place] [id number] Jun, IMMUNIZATIONS No Known Immunizations SOCIAL HISTORY [...]
--- OUTSIDE RECORDS SUMMARY | 2020-01-25 13:28 | XMS REPORT ---
Author Author Ana Brannon [facility] Address [address] [place] [address] Care Team Providers Care Supply Person Name Role Phone Clovis ANEUDY Unavailable PROBLEMS Type Condition ICD9-CM Code [id number] Code Onset Dates Condition S tatus SNOMED Code Problem Chronic hepatitis C without hepatic coma B18.2 Active 677571977 Problem Cannabis abuse F12.10 Active 00597 009 Problem Bipolar 1 disorder F31.9 Active 3 37785342 Problem Attention deficit hyperactivity disorder (ADHD), combi luciano type F90.2 Active 21061220 Problem Attention deficit R41.840 Active 76 792476 Problem Hot flashes due to menopause N95.1 A ctive 409542375 Problem H/O laminectomy Z98.89 Active 1616 69137 Problem Other chronic pain G89.29 Active 8 3413989 Problem Anxiety disorder, unspecified type F41.9 Active 683191480 Problem Bipolar disorder, in partial remission, most rec ent episode hypomanic F31.71 Active 357884347 ALLERGIES No Information ENCOUNTERS Encounter Location Date Diagnosis [facility] [address] [id number] [address] [place] [id number] Oct, [facility] [address] [facility] [id number] [address] [place] [phone] Oct, [facility] [address] [facility] [id number] [address] [place] [address] Aug, [facility] [address] [facility] [id number] [address] [place] [phone] Jul, [facility] [address] [facility] [id number] [address] [place] [address] Jul, [facility] [address] [facility] [id number] [address] [place] [address] Apr, [facility] [address] [id number] [address] [place] [address] Mar, Hot flashes due to menopause N95.1 ; Anxiety disorder, unspecified type F41.9 ; Low back pain M54.5 and Encounter for immunization Z23 [facility] [address] [id number] [address] [place] [address] Dec, Other chronic pain G89.29 an d Low back pain M54.5 [facility] [address] [id number] [address] [place] [phone] October, [facility] [address] [id number] [address] [place] [address] October, [facility] [address] [id number] [address] [place] [address] October, [facility] [address] [facility] [id number] [address] [place] [address] October, Other chronic pain G89.29 an d Chronic hepatitis C without hepatic coma B18.2 [facility] [address] [id number] [address] [place] [address] Aug, Bipolar disorder, in partial remission, most recent episode hypomanic F31.71 ; Attention deficit hyperactivity disorder (ADHD), combined type F90.2 and Anxiety disorder, unspecified type F41.9 [facility] [address] [id number] [address] [place] [address] Aug, [facility] [address] [id number] [address] [place] [address] Aug, Bipolar disorder, in partial remission, most recent episode hypomanic F31.71 [facility] [address] [facility] [id number] [address] [place] [address] Aug, [facility] [address] [facility] [id number] [address] [place] [address] Aug, Bipolar disorder, in partial remission, most recent episode hypomanic F31.71 [facility] [address] [id number] [address] [place] [address] Aug, Bipolar disorder, in partial remission, most recent episode hypomanic F31.71 ; Attention deficit hyperactivity disorder (ADHD), combined type F90.2 and Anxiety disorder, unspecified type F41.9 [facility] [address] [id number] [address] [place] [address] Aug, Low back pain M54.5 and Pain in left wrist M25.532 [facility] [address] [id number] [address] [place] [address] Aug, [facility] [address] [id number] [address] [place] [address] Jun, [facility] [address] [id number] [address] [place] [address] Apr, Bipolar disorder, in partial remission, most recent episode hypomanic F31.71 [facility] [address] [id number] [address] [place] [address] Apr, [facility] [address] [id number] [address] [place] [address] Apr, Bipolar disorder, in partial remission, most recent episode hypomanic F31.71 ; Attention deficit hyperactivity disorder (ADHD), combined type F90.2 ; Anxiety disorder, unspecified type F41.9 and Other mcc (current) drug therapy Z79.899 [facility] [address] [id number] [address] [place] [address] Apr, Bipolar disorder, in partial remission, most recent episode hypomanic F31.71 [facility] [address] [id number] [address] [place] [address] Apr, Bipolar disorder, in partial remission, most recent episode hypomanic F31.71 [facility] [address] [id number] [address] [place] [address] Mar, [facility] [address] [id number] [address] [place] [address] Mar, Bipolar disorder, in partial remission, most recent episode hypomanic F31.71 ; Encounter for immunization Z23 and Low back pain M54.5 [facility] [address] [id number] [address] [place] [address] 17 Mar, 2018 Bipolar disorder, in partial remission, most recent episode hypomanic F31.71 [facility] [address] [id number] [address] [place] [address] Mar, Bipolar disorder, in partial remission, most recent episode hypomanic F31.71 [facility] [address] [id number] [address] [place] [address] Jan, Bipolar disorder, in partial remission, most recent episode hypomanic F31.71 [facility] [address] [id number] [address] [place] [address] Jan, Bipolar disorder, in partial remission, most recent episode hypomanic F31.71 [facility] [address] [id number] [address] [place] [address] Dec, Bipolar disorder, in partial remission, most recent episode hypomanic F31.71 [facility] [address] [facility] [id number] [address] [place] [address] Dec, Bipolar disorder, in partial remission, most recent episode hypomanic F31.71 ; Attention deficit hyperactivity disorder (ADHD), combined type F90.2 ; Anxiety disorder, unspecified type F41.9 and Other mcc (current) drug therapy Z79.899 [facility] [address] [id number] [address] [place] [address] Dec, Bipolar disorder, in partial remission, most recent episode hypomanic F31.71 [facility] [address] [facility] [id number] [address] [place] [address] Dec, Bipolar disorder, in partial remission, most recent episode hypomanic F31.71 [facility] [address] [facility] [id number] [address] [place] [address] October, Bipolar disorder, in partial remission, most recent episode hypomanic F31.71 [facility] [address] [id number] [address] [place] [address] October, [facility] [address] [id number] [address] [place] [address] October, [facility] [address] [id number] [address] [place] [address] Oct, Bipolar disorder, in partial remission, most recent episode hypomanic F31.71 ; Attention deficit hyperactivity disorder (ADHD), combined type F90.2 ; Anxiety disorder, unspecified type F41.9 and Encounter for drug screening Z02.83 [facility] [address] [id number] [address] [place] [address] Oct, Bipolar disorder, in partial remission, most recent episode hypomanic F31.71 [facility] [address] [id number] [address] [place] [address] Oct, Bipolar disorder, in partial remission, most recent episode hypomanic F31.71 [facility] [address] [facility] [id number] [address] [place] [address] Aug, Bipolar disorder, in partial remission, most recent episode hypomanic F31.71 [facility] [address] [facility] [id number] [address] [place] [address] Aug, Bipolar disorder, in partial remission, most recent episode hypomanic F31.71 [facility] [address] [id number] [address] [place] [address] Aug, Bipolar disorder, in partial remission, most recent episode hypomanic F31.71 [facility] [address] [facility] [id number] [address] [place] [address] Jul, Bipolar disorder, in partial remission, most recent episode hypomanic F31.71 ; Attention deficit hyperactivity disorder (ADHD), combined type F90.2 and Anxiety disorder, unspecified type F41.9 [facility] [address] [id number] [address] [place] [address] Jul, Bipolar disorder, in partial remission, most recent episode hypomanic F31.71 [facility] [address] [id number] [address] [place] [address] Jun, Bipolar disorder, in partial remission, most recent episode hypomanic F31.71 [facility] [address] [id number] [address] [place] [address] May, Bipolar disorder, in partial remission, most recent episode hypomanic F31.71 [facility] [address] [id number] [address] [place] [address] May, Bipolar disorder, in partial remission, most recent episode hypomanic F31.71 [facility] [address] [facility] [id number] [address] [place] [address] Apr, [facility] [address] [facility] [id number] [address] [place] [address] Apr, Bipolar disorder, in partial remission, most recent episode hypomanic F31.71 ; Attention deficit hyperactivity disorder (ADHD), combined type F90.2 ; Anxiety disorder, unspecified type F41.9 and Cannabis abuse F12.10 [facility] [address] [facility] [id number] [address] [place] [address] Apr, Attention deficit hyperactiv ity disorder (ADHD), combined type F90.2 [facility] [address] [id number] [address] [place] [address] Mar, Attention deficit hyperactiv ity disorder (ADHD), combined type F90.2 [facility] [address] [id number] [address] [place] [address] 14 Mar, 2017 Anxiety disorder, unspecifie d type F41.9 [facility] [address] [facility] [id number] [address] [place] [address] Jan, Attention deficit hyperactiv ity disorder (ADHD), combined type F90.2 [facility] [address] [id number] [address] [place] [address] Jan, Anxiety disorder, unspecifie d type F41.9 [facility] [address] [id number] [address] [place] [address] Jan, Other chronic pain G89.29 ; Chronic hepatitis C without hepatic coma B18.2 and Bipolar 1 disorder F31.9 [facility] [address] [id number] [address] [place] [address] Dec, Attention deficit hyperactiv ity disorder (ADHD), combined type F90.2 [facility] [address] [id number] [address] [place] [address] Dec, Bipolar disorder, in partial remission, most recent episode hypomanic F31.71 ; Attention deficit hyperactivity disorder (ADHD), combined type F90.2 and Anxiety disorder, unspecified type F41.9 [place] [id number] [place] [address] Dec, Bipolar disorder, in partial remission, most recent episode hypomanic F31.71 ; Attention deficit hyperactivity disorder (ADHD), combined type F90.2 and Anxiety disorder, unspecified type F41.9 [place] [id number] [place] [address] Dec, Bipolar 1 disorder F31.9 and Attention deficit R41.840 [place] [address] [id number] [address] [place] [address] Oct, Other chronic pain G89.29 ; Alopecia L65.9 and Screening, lipid Z13.220 [facility] [address] [id number] [address] [place] [phone] Oct, [place] [id number] [place] [address] Aug, [place] [id number] [place] [address] Aug, Eustachian tube dysfunction, right H69.81 ; Vertigo R42 and Other chronic pain G89.29 [facility] [address] [id number] [address] [place] [address] Aug, [facility] [address] [id number] [address] [place] [address] Jun, [facility] [address] [id number] [address] [place] [address] Jun, Low back pain M54.5 and Othe r chronic pain G89.29 [facility] [address] [id number] [address] [place] [address] Jun, [facility] [address] [id number] [address] [place] [address] May, [facility] [address] [id number] [address] [place] [address] Jan, [facility] [address] [id number] [address] [place] [address] Dec, [facility] [address] [id number] [address] [place] [address] Dec, [facility] [address] [id number] [address] [place] [address] Jun, [facility] [address] [facility] [id number] [address] [place] [address] Apr, Eustachian tube dysfunction, unspecified laterality H69.80 ; Hot flashes N95.1 and Encounter for immunization Z23 [facility] [address] [id number] [address] [place] [address] Jan, [facility] [address] [id number] [address] [place] [address] Jan, [facility] [address] [id number] [address] [place] [address] Jan, [facility] [address] [id number] [address] [place] [id number] Jan, [facility] [address] [id number] [address] [place] [address] Jan, Encounter to establish care V65.8 ; Bipolar 1 disorder 296.7 ; Abdominal pain 789.00 ; Constipation 564.00 ; Hard of hearing 389.9 and Drug abuse 305.90 [facility] [address] [id number] [address] [place] [address] Dec, [facility] [address] [id number] [address] [place] [address] October, [facility] [address] [id number] [address] [place] [address] October, [facility] [address] [id number] [address] [place] [address] Oct, [facility] [address] [id number] [address] [place] [address] Oct, [facility] [address] [id number] [address] [place] [address] Oct, [facility] [address] [id number] [address] [place] [address] Aug, [facility] [address] [id number] [address] [place] [id number] Aug, [facility] [address] [id number] [address] [place] [address] Aug, [facility] [address] [id number] [address] [place] [address] Aug, [facility] [address] [id number] [address] [place] [address] Aug, [facility] [address] [id number] [address] [place] [address] Aug, [facility] [address] [id number] [address] [place] [address] Aug, [facility] [address] [id number] [address] [place] [address], [place] [address] Aug, 2014 [facility] [address] [id number] [address] [place] [address], [place] [address] Aug, 2014 [facility] [address] [id number] [address] [place] [address], [place] [address] Aug, 2014 [facility] [address] [id number] [address] [place] [address], [place] [address] Aug, 2014 [facility] [address] [id number] [address] [place] [address], [place] [address] Aug, 2014 [facility] [address] [id number] [address] [place] [address], [place] [address] Aug, 2014 [facility] [address] [id number] [address] [place] [address], [place] [address] Aug, 2014 [facility] [address] [id number] [address] [place] [address], [place] [address] Aug, [facility] [address] [id number] [address] [place] [address], [place] [address] Jul, [facility] [address] [id number] [address] [place] [address], [place] [address] Jul, [facility] [address] [id number] [address] [place] [address], [place] [address] Jul, [facility] [address] [id number] [address] [place] [address], [place] [address] Jul, [facility] [address] [id number] [address] [place] [address], [place] [address] Jul, [facility] [address] [id number] [address] [place] [address], [place] [address] Jul, [facility] [address] [id number] [address] [place] [address], [place] [address] Jul, [facility] [address] [id number] [address] [place] [address], [place] [address] Jul, [facility] [address] [id number] [address] [place] [address], [place] [address] Jun, [facility] [address] [id number] [address] [place] [address], [place] [address] Jun, [facility] [address] [id number] [address] [place] [address], [place] [address] Jun, [facility] [address] [id number] [address] [place] [address], [place] [address] Jun, [facility] [address] [id number] [address] [place] [address], [place] [address] Jun, [facility] [address] [id number] [address] [place] [address], [place] [address] Jun, [facility] [address] [id number] [address] [place] [address], [place] [address] Jun, [facility] [address] [id number] [address] [place] [address], [place] [address] Jun, [facility] [address] [id number] [address] [place] [address], [place] [address] Jun, [facility] [address] [id number] [address] [place] [address], [place] [address] Jun, [facility] [address] [id number] [address] [place] [address], [place] [address] Jun, [facility] [address] [id number] [address] [place] [address], [place] [address] May, [facility] [address] [id number] [address] [place] [address], [place] [address] May, [facility] [address] [id number] [address] [place] [address], [place] [address] May, [facility] [address] [id number] [address] [place] [address], [place] [address] May, [facility] [address] [id number] [address] [place] [address], [place] [address] May, [facility] [address] [id number] [address] [place] [address], [place] [address] May, [facility] [address] [id number] [address] [place] [address], [place] [address] May, [facility] [address] [id number] [address] [place] [address], [place] [address] Apr, [facility] [address] [id number] [address] [place] [address], [place] [address] Apr, [facility] [address] [id number] [address] [place] [address], [place] [address] Apr, [facility] [address] [id number] [address] [place] [address], [place] [address] Apr, [facility] [address] [id number] [address] [place] [address], [place] [address] Apr, [facility] [address] [id number] [address] [place] [address], [place] [address] Apr, [facility] [address] [id number] [address] [place] [address], [place] [address] Mar, [facility] [address] [id number] [address] [place] [address], [place] [address] 29 Mar, 2014 [facility] [address] [id number] [address] [place] [address], [place] [address] Mar, [facility] [address] [id number] [address] [place] [address], [place] [address] Mar, [facility] [address] [id number] [address] [place] [address], [place] [address] Mar, [facility] [address] [id number] [address] [place] [address], [place] [address] Mar, [facility] [address] [id number] [address] [place] [address], [place] [address] Jan, [facility] [address] [id number] [address] [place] [address], [place] [address] Jan, [facility] [address] [id number] [address] [place] [address], [place] [address] Jan, [facility] [address] [id number] [address] [place] [address], [place] [address] Jan, [facility] [address] [id number] [address] [place] [address], [place] [address] Dec, [facility] [address] [id number] [address] [place] [address], [place] [address] Dec, [facility] [address] [id number] [address] [place] [address], [place] [address] Dec, [facility] [address] [id number] [address] [place] [address], [place] [address] Dec, [facility] [address] [id number] [address] [place] [address], [place] [address] Dec, [facility] [address] [id number] [address] [place] [address], [place] [address] Dec, [facility] [address] [id number] [address] [place] [address], [place] [address] Dec, [facility] [address] [id number] [address] [place] [address], [place] [address] Dec, [facility] [address] [id number] [address] [place] [address], [place] [address] Dec, [facility] [address] [id number] [address] [place] [address], [place] [address] Dec, [facility] [address] [id number] [address] [place] [address], [place] [address] Dec, [facility] [address] [id number] [address] [place] [address], [place] [address] Dec, [facility] [address] [id number] [address] [place] [address], [place] [address] October, [facility] [address] [id number] [address] [place] [address], [place] [address] October, [facility] [address] [id number] [address] [place] [address], [place] [address] October, [facility] [address] [id number] [address] [place] [address], [place] [address] October, [facility] [address] [id number] [address] [place] [address], [place] [address] October, [facility] [address] [id number] [address] [place] [address], [place] [address] October, [facility] [address] [id number] [address] [place] [address], [place] [address] Oct, [facility] [address] [id number] [address] [place] [address], [place] [address] Oct, [facility] [address] [id number] [address] [place] [address], [place] [address] Oct, [facility] [address] [id number] [address] [place] [address], [place] [address] Oct, [facility] [address] [id number] [address] [place] [address], [place] [address] Oct, [facility] [address] [id number] [address] [place] [address], [place] [address] Oct, [facility] [address] [id number] [address] [place] [address], [place] [address] Oct, [facility] [address] [id number] [address] [place] [address], [place] [address] Oct, [facility] [address] [id number] [address] [place] [address], [place] [address] Oct, [facility] [address] [id number] [address] [place] [address], [place] [address] Oct, [facility] [address] [id number] [facility] [place] [address] 08 Oct, 2013 [facility] [address] [id number] [facility] [place] [address] 08 Oct, 2013 [facility] [address] [id number] [facility] [place] [address] 15 Aug, 2013 [facility] [address] [id number] [address] [place] [address], [place] [address] 15 Aug, 2013 [facility] [address] [id number] [address] [place] [address], [place] [address] Aug, [facility] [address] [id number] [address] [place] [address], [place] [address] Aug, [facility] [address] [id number] [address] [place] [address], [place] [address] Aug, [facility] [address] [id number] [address] [place] [address], [place] [address] Aug, [facility] [address] [id number] [address] [place] [address], [place] [address] Aug, [facility] [address] [id number] [address] [place] [address], [place] [address] Aug, [facility] [address] [id number] [address] [place] [address], [place] [address] Aug, [facility] [address] [id number] [address] [place] [address], [place] [address] Aug, [facility] [address] [id number] [address] [place] [address], [place] [address] Aug, [facility] [address] [id number] [address] [place] [address], [place] [address] Aug, [facility] [address] [id number] [address] [place] [address], [place] [address] Aug, [facility] [address] [id number] [address] [place] [address], [place] [address] 20 Aug, 2013 [facility] [address] [id number] [address] [place] [address], [place] [address] 14 Aug, 2013 [facility] [address] [id number] [address] [place] [address], [place] [address] 14 Aug, 2013 [facility] [address] [id number] [address] [place] [address], [place] [address] 14 Aug, 2013 [facility] [address] [id number] [address] [place] [address], [place] [address] 14 Aug, 2013 [facility] [address] [id number] [address] [place] [address], [place] [address] 07 Aug, 2013 [facility] [address] [id number] [address] [place] [address], [place] [address] 07 Aug, 2013 [facility] [address] [id number] [address] [place] [address], [place] [address] 06 Aug, 2013 [facility] [address] [id number] [address] [place] [address], [place] [address] 06 Aug, 2013 [facility] [address] [id number] [address] [place] [address], [place] [address] 04 Aug, 2013 [facility] [address] [id number] [address] [place] [address], [place] [address] 04 Aug, 2013 [facility] [address] [id number] [address] [place] [address], [place] [address] Aug, [facility] [address] [id number] [address] [place] [address], [place] [address] Jul, [facility] [address] [id number] [address] [place] [address], [place] [address] Jul, [facility] [address] [id number] [address] [place] [address], [place] [address] Jul, [facility] [address] [id number] [address] [place] [address], [place] [address] Jul, [facility] [address] [id number] [address] [place] [address], [place] [address] Jul, [facility] [address] [id number] [address] [place] [address], [place] [address] Jul, [facility] [address] [id number] [address] [place] [address], [place] [address] Jul, [facility] [address] [id number] [address] [place] [address], [place] [address] Jul, [facility] [address] [id number] [address] [place] [address], [place] [address] Jul, [facility] [address] [id number] [address] [place] [address], [place] [address] Jul, [facility] [address] [id number] [address] [place] [address], [place] [address] Jul, [facility] [address] [id number] [address] [place] [address], [place] [address] Jul, [facility] [address] [id number] [address] [place] [address], [place] [address] Jul, [facility] [address] [id number] [address] [place] [address], [place] [address] Jul, [facility] [address] [id number] [address] [place] [address], [place] [address] Jul, [facility] [address] [id number] [address] [place] [address], [place] [address] Jul, [facility] [address] [id number] [address] [place] [address], [place] [address] Jul, [facility] [address] [id number] [address] [place] [address], [place] [address] Jul, [facility] [address] [id number] [address] [place] [address], [place] [address] Jul, [facility] [address] [id number] [address] [place] [address], [place] [address] Jul, [facility] [address] [id number] [address] [place] [address], [place] [address] Jun, [facility] [address] [id number] [address] [place] [address], [place] [address] Jun, [facility] [address] [id number] [address] [place] [address], [place] [address] Jun, [facility] [address] [id number] [address] [place] [address], [place] [address] Jun, [facility] [address] [id number] [address] [place] [address], [place] [address] Jun, [facility] [address] [id number] [address] [place] [address], [place] [address] Jun, [facility] [address] [id number] [address] [place] [address], [place] [address] Jun, [facility] [address] [id number] [address] [place] [address], [place] [address] Jun, [facility] [address] [id number] [address] [place] [address], [place] [address] Jun, [facility] [address] [id number] [address] [place] [address], [place] [address] Jun, [facility] [address] [id number] [address] [place] [address], [place] [address] Jun, [facility] [address] [id number] [address] [place] [address], [place] [address] Jun, [facility] [address] [id number] [address] [place] [address], [place] [address] Jun, [facility] [address] [id number] [address] [place] [address], [place] [address] Jun, [facility] [address] [id number] [address] [place] [address], [place] [address] Jun, [facility] [address] [id number] [address] [place] [address], [place] [address] 18 Jun, 2013 [facility] [address] [id number] [address] [place] [address], [place] [address] 18 Jun, 2013 [facility] [address] [id number] [address] [place] [address], [place] [address] 17 Jun, 2013 [facility] [address] [id number] [address] [place] [address], [place] [address] 17 Jun, 2013 [facility] [address] [id number] [address] [place] [address], [place] [address] 13 Jun, 2013 [facility] [address] [id number] [address] [place] [address], [place] [address] Jun, [facility] [address] [id number] [address] [place] [address], [place] [address] Jun, [facility] [address] [id number] [address] [place] [address], [place] [address] Jun, [facility] [address] [id number] [address] [place] [address], [place] [address] 05 Jun, 2013 [facility] [address] [id number] [address] [place] [address], [place] [address] 05 Jun, 2013 [facility] [address] [id number] [address] [place] [address], [place] [address] 04 Jun, 2013 [facility] [address] [id number] [address] [place] [address], [place] [address] 04 Jun, 2013 [facility] [address] [id number] [address] [place] [address], [place] [address] 17 May, 2013 [facility] [address] [id number] [address] [place] [address], [place] [address] 17 May, 2013 [facility] [address] [id number] [address] [place] [address], [place] [address] May, [facility] [address] [id number] [address] [place] [address] [address] May, [facility] [address] [id number] [address] [place] [address], [place] [address] May, [facility] [address] [id number] [address] [place] [address], [place] [address] May, [facility] [address] [id number] [address] [place] [address], [place] [address] Apr, [facility] [address] [id number] [address] [place] [address], [place] [address] Apr, [facility] [address] [id number] [address] [place] [address], [place] [address] Apr, [facility] [address] [id number] [address] [place] [address], [place] [address] Apr, [facility] [address] [id number] [address] [place] [address], [place] [address] Apr, [facility] [address] [id number] [address] [place] [address], [place] [address] Apr, [facility] [address] [id number] [address] [place] [address], [place] [address] Apr, [facility] [address] [id number] [address] [place] [address] Apr, [facility] [address] [id number] [address] [place] [address] 26 Mar, 2012 [facility] [address] [id number] [address] [place] [address] 24 Sep, 2012 [facility] [address] [id number] [address] [place] [address], [place] [address] 17 Sep2012 [facility] [address] [id number] [address] [place] [address] 17 Sep, 2012 [facility] [address] [id number] [address] [place] [address], [place] [address] 11 Mar, 2013 [facility] [address] [id number] [facility] [place] [address] 10 Mar, 2013 [facility] [address] [id number] [address] [place] [address], [place] [address] 05 Mar, 2013 [facility] [address] [id number] [address] [place] [address], [place] [address] 04 Mar, 2013 [facility] [address] [id number] [address] [place] [address], [place] [address] 20 Jan, 2013 [facility] [address] [id number] [address] [place] [address], [place] [address] Jan, [facility] [address] [id number] [address] [place] [address], [place] [address] 14 Jan, 2013 [facility] [address] [id number] [address] [place] [address], [place] [address] Jan, [facility] [address] [id number] [address] [place] [address], [place] [address] Jan, [facility] [address] [id number] [address] [place] [address], [place] [address] Jan, [facility] [address] [id number] [address] [place] [address], [place] [address] Dec, [facility] [address] [id number] [address] [place] [address], [place] [address] Dec, [facility] [address] [id number] [address] [place] [address], [place] [address] Dec, [facility] [address] [id number] [address] [place] [address], [place] [address] Dec, [facility] [address] [id number] [address] [place] [address], [place] [address] 18 Dec, 2012 [facility] [address] [id number] [address] [place] [address], [place] [address] 17 Dec, 2012 [facility] [address] [id number] [address] [place] [address], [place] [address] 16 Dec, 2012 [facility] [address] [id number] [address] [place] [address], [place] [address] 16 Dec, 2012 [facility] [address] [id number] [address] [place] [address], [place] [address] 15 Dec, 2012 [facility] [address] [id number] [address] [place] [address], [place] [address] 10 Dec, 2012 [facility] [address] [id number] [address] [place] [address], [place] [address] Dec, [facility] [address] [id number] [address] [place] [address], [place] [address] Dec, [facility] [address] [id number] [address] [place] [address], [place] [address] Dec, [facility] [address] [id number] [address] [place] [address], [place] [address] Dec, [facility] [address] [id number] [address] [place] [address], [place] [address] Dec, [facility] [address] [id number] [address] [place] [address], [place] [address] Dec, [facility] [address] [id number] [address] [place] [address], [place] [address] October, [facility] [address] [id number] [address] [place] [address], [place] [address] October, [facility] [address] [id number] [address] [place] [address], [place] [address] October, [facility] [address] [id number] [address] [place] [address], [place] [address] October, [facility] [address] [id number] [address] [place] [address], [place] [address] October, [facility] [address] [id number] [address] [place] [address], [place] [address] October, [facility] [address] [id number] [address] [place] [address], [place] [address] October, [facility] [address] [id number] [address] [place] [address], [place] [address] Oct, [facility] [address] [id number] [address] [place] [address], [place] [address] Oct, [facility] [address] [id number] [address] [place] [address], [place] [address] Oct, [facility] [address] [id number] [address] [place] [address], [place] [address] Oct, [facility] [address] [id number] [address] [place] [address], [place] [address] Oct, [facility] [address] [id number] [address] [place] [address], [place] [address] Oct, [facility] [address] [id number] [address] [place] [address], [place] [address] Oct, [facility] [address] [id number] [address] [place] [address], [place] [address] 15 Oct, 2012 [facility] [address] [id number] [address] [place] [address], [place] [address] Oct, [facility] [address] [id number] [address] [place] [address], [place] [address] Oct, [facility] [address] [id number] [address] [place] [address], [place] [address] Oct, [facility] [address] [id number] [address] [place] [address], [place] [address] Oct, [facility] [address] [id number] [address] [place] [address], [place] [address] Aug, [facility] [address] [id number] [address] [place] [address], [place] [address] Aug, [facility] [address] [id number] [address] [place] [address], [place] [address] Aug, [facility] [address] [id number] [address] [place] [address], [place] [address] 06 Aug, 2012 [facility] [address] [id number] [address] [place] [address], [place] [address] 05 Aug, 2012 [facility] [address] [id number] [address] [place] [address], [place] [address] 05 Aug, 2012 [facility] [address] [id number] [address] [place] [address], [place] [address] 20 Aug, 2012 [facility] [address] [id number] [address] [place] [address], [place] [address] 14 Aug, 2012 [facility] [address] [id number] [address] [place] [address], [place] [address] 12 Aug, 2012 [facility] [address] [id number] [address] [place] [address], [place] [address] Aug, [facility] [address] [id number] [address] [place] [address], [place] [address] 29 Jul, 2012 [facility] [address] [id number] [address] [place] [address], [place] [address] 15 Jul, 2012 [facility] [address] [id number] [address] [place] [address], [place] [address] 08 Jul, 2012 [facility] [address] [id number] [address] [place] [address], [place] [address] 20 Jun, 2012 [facility] [address] [id number] [address] [place] [address], [place] [address] 18 Jun, 2012 [facility] [address] [id number] [address] [place] [address], [place] [address] 18 Jun, 2012 [facility] [address] [id number] [address] [place] [address], [place] [address] 18 Jun, 2012 [facility] [address] [id number] [address] [place] [address], [place] [address] 18 Jun, 2012 [facility] [address] [id number] [address] [place] [address] [address] 14 Jun, 2012 [facility] [address] [id number] [address] [place] [address], [place] [address] 14 Jun, 2012 [facility] [address] [id number] [address] [place] [address], [place] [address] 13 Jun, 2012 [facility] [address] [id number] [address] [place] [address], [place] [address] 13 Jun, 2012 [facility] [address] [id number] [address] [place] [address], [place] [address] 11 Jun, 2012 [facility] [address] [id number] [address] [place] [address], [place] [address] 11 Jun, 2012 [facility] [address] [id number] [address] [place] [address], [place] [address] 11 Jun, 2012 [facility] [address] [id number] [address] [place] [address], [place] [address] Jun, [facility] [address] [id number] [address] [place] [address], [place] [address] 07 Jun, 2012 [facility] [address] [id number] [address] [place] [address], [place] [address] 07 Jun, 2012 [facility] [address] [id number] [address] [place] [address], [place] [address] 06 Jun, 2012 [facility] [address] [id number] [address] [place] [address], [place] [address] Jun, [facility] [address] [id number] [address] [place] [address], [place] [address] Jun, [facility] [address] [id number] [address] [place] [address], [place] [address] Jun, [facility] [address] [id number] [address] [place] [address], [place] [address] 05 Jun, 2012 [facility] [address] [id number] [address] [place] [address], [place] [address] 05 Jun, 2012 [facility] [address] [id number] [address] [place] [address], [place] [address] Jun, [facility] [address] [id number] [address] [place] [address], [place] [address] Jun, [facility] [address] [id number] [address] [place] [address], [place] [address] May, [facility] [address] [id number] [address] [place] [address], [place] [address] May, [facility] [address] [id number] [address] [place] [address], [place] [address] May, [facility] [address] [id number] [address] [place] [address], [place] [address] May, [facility] [address] [id number] [address] [place] [address], [place] [address] May, [facility] [address] [id number] [address] [place] [address], [place] [address] May, [facility] [address] [id number] [address] [place] [address], [place] [address] May, [facility] [address] [id number] [address] [place] [address], [place] [address] May, [facility] [address] [id number] [address] [place] [address], [place] [address] Apr, [facility] [address] [id number] [address] [place] [address], [place] [address] 30 Apr, 2012 [facility] [address] [id number] [address] [place] [address], [place] [address] 29 Apr, 2012 [facility] [address] [id number] [address] [place] [address], [place] [address] Apr, [facility] [address] [id number] [address] [place] [address], [place] [address] Apr, [facility] [address] [id number] [address] [place] [address] Apr, [facility] [address] [id number] [address] [place] [address], [place] [address] Apr, [facility] [address] [id number] [address] [place] [address], [place] [address] Apr, [facility] [address] [id number] [address] [place] [address], [place] [address] Apr, [facility] [address] [id number] [address] [place] [address], [place] [address] Apr, [facility] [address] [id number] [address] [place] [address], [place] [address] Apr, [facility] [address] [id number] [address] [place] [address], [place] [address] Apr, [facility] [address] [id number] [address] [place] [address], [place] [address] Mar, [facility] [address] [id number] [address] [place] [address], [place] [address] 18 Mar, 2012 [facility] [address] [id number] [address] [place] [address], [place] [address] Mar, [facility] [address] [id number] [address] [place] [address] Mar, [facility] [address] [id number] [address] [place] [id number] Mar, [facility] [address] [id number] [address] [place] [id number] Mar, [facility] [address] [id number] [address] [place] [address] Mar, [facility] [address] [id number] [address] [place] [address] Jan, [facility] [address] [id number] [address] [place] [address] Jan, [facility] [address] [id number] [address] [place] [id number] Jan, [facility] [address] [id number] [address] [place] [address], [place] [id number] Jan, [facility] [address] [id number] [address] [place] [address], [place] [address] Jan, [facility] [address] [id number] [address] [place] [address], [place] [address] Jan, [facility] [address] [id number] [address] [place] [address], [place] [address] Jan, [facility] [address] [id number] [address] [place] [address], [place] [address] Jan, [facility] [address] [id number] [address] [place] [address], [place] [address] Jan, [facility] [address] [id number] [address] [place] [address], [place] [address] Jan, [facility] [address] [id number] [address] [place] [address], [place] [address] Jan, [facility] [address] [id number] [address] [place] [address], [place] [address] Dec, [facility] [address] [id number] [address] [place] [address], [place] [address] Dec, [facility] [address] [id number] [address] [place] [address], [place] [address] Dec, [facility] [address] [id number] [address] [place] [address], [place] [address] Dec, [facility] [address] [id number] [address] [place] [address], [place] [address] Dec, [facility] [address] [id number] [address] [place] [address], [place] [address] Dec, [facility] [address] [id number] [address] [place] [address], [place] [address] Dec, [facility] [address] [id number] [facility] [place] [address] 17 Jan, 2012 [facility] [address] [id number] [address] [place] [address], [place] [address] 16 Jan, 2012 [facility] [address] [id number] [address] [place] [address], [place] [address] 13 Jan, 2012 [facility] [address] [id number] [address] [place] [address], [place] [address] 13 Jan, 2012 [facility] [address] [id number] [address] [place] [address], [place] [address] Dec, [facility] [address] [id number] [address] [place] [address], [place] [address] Dec, [facility] [address] [id number] [address] [place] [address], [place] [address] Dec, [facility] [address] [id number] [address] [place] [address], [place] [address] Dec, [facility] [address] [id number] [address] [place] [address], [place] [address] Dec, [facility] [address] [id number] [address] [place] [address], [place] [address] 15 Dec, 2011 [facility] [address] [id number] [address] [place] [address], [place] [address] 06 Dec, 2011 [facility] [address] [id number] [address] [place] [address], [place] [address] 05 Dec, 2011 [facility] [address] [id number] [address] [place] [address], [place] [address] October, [facility] [address] [id number] [address] [place] [address], [place] [address] October, [facility] [address] [id number] [address] [place] [address], [place] [address] October, [facility] [address] [id number] [address] [place] [address], [place] [address] October, [facility] [address] [id number] [address] [place] [address], [place] [address] October, [facility] [address] [id number] [address] [place] [address], [place] [address] October, [facility] [address] [id number] [address] [place] [address], [place] [address] Oct, [facility] [address] [id number] [address] [place] [address], [place] [address] Oct, [facility] [address] [id number] [address] [place] [address], [place] [address] Oct, [facility] [address] [id number] [address] [place] [address], [place] [address] Oct, [facility] [address] [id number] [address] [place] [address], [place] [address] Oct, [facility] [address] [id number] [address] [place] [address], [place] [address] Oct, [facility] [address] [id number] [address] [place] [address], [place] [address] Oct, [facility] [address] [id number] [address] [place] [address], [place] [address] Aug, [facility] [address] [id number] [address] [place] [address], [place] [address] Aug, [facility] [address] [id number] [address] [place] [address], [place] [address] Aug, [facility] [address] [id number] [address] [place] [address], [place] [address] Aug, [facility] [address] [id number] [address] [place] [address], [place] [address] Aug, [facility] [address] [id number] [address] [place] [address], [place] [address] Aug, [facility] [address] [id number] [address] [place] [address], [place] [address] Aug, [facility] [address] [id number] [address] [place] [address], [place] [address] Aug, [facility] [address] [id number] [address] [place] [address], [place] [address] 08 Aug, 2011 [facility] [address] [id number] [address] [place] [address], [place] [address] Jul, [facility] [address] [id number] [address] [place] [address], [place] [address] Jul, [facility] [address] [id number] [address] [place] [address], [place] [address] Jul, [facility] [address] [id number] [address] [place] [address], [place] [address] Jul, [facility] [address] [id number] [address] [place] [address], [place] [address] Jun, [facility] [address] [id number] [address] [place] [address], [place] [address] Jun, [facility] [address] [id number] [address] [place] [address], [place] [address] May, [facility] [address] [id number] [address] [place] [address], [place] [address] May, [facility] [address] [id number] [address] [place] [address], [place] [address] May, [facility] [address] [id number] [address] [place] [address], [place] [address] May, [facility] [address] [id number] [address] [place] [address], [place] [address] May, [facility] [address] [id number] [address] [place] [address], [place] [address] 28 Apr, 2011 [facility] [address] [id number] [address] [place] [address], [place] [address] Apr, [facility] [address] [id number] [address] [place] [address] Apr, [facility] [address] [id number] [address] [place] [address] Jan, [facility] [address] [id number] [address] [place] [address] Dec, [facility] [address] [id number] [address] [place] [address] October, [facility] [address] [id number] [address] [place] [address] Jun, [facility] [address] [id number] [address] [place] [address] Apr, [facility] [address] [id number] [address] [place] [address] Apr, [facility] [address] [id number] [address] [place] [address] Apr, [facility] [address] [id number] [address] [place] [address] Jun, IMMUNIZATIONS No Known Immunizations SOCIAL HISTORY [...]
--- OUTSIDE RECORDS SUMMARY | 2020-01-25 13:29 | XMS REPORT ---
Author Author Ana MCDONALD [facility] Address [address] [place] [address] Care Team Providers Care Spot Welder Name Role Phone CHAZ MCDONALD Unavailable PROBLEMS Type Condition ICD9-CM Code TFU18-QV Code Onset Dates Condition S tatus SNOMED Code Problem Chronic hepatitis C without hepatic coma B18.2 Active 019366694 Problem Cannabis abuse F12.10 Active 22819 009 Problem Bipolar 1 disorder F31.9 Active 3 90950836 Problem Attention deficit hyperactivity disorder (ADHD), combi luciano type F90.2 Active 87664077 Problem Attention deficit R41.840 Active 76 098292 Problem Hot flashes due to menopause N95.1 A ctive 442925820 Problem H/O laminectomy Z98.89 Active 1616 98088 Problem Other chronic pain G89.29 Active 8 2750981 Problem Anxiety disorder, unspecified type F41.9 Active 221216347 Problem Bipolar disorder, in partial remission, most rec ent episode hypomanic F31.71 Active [id number] ALLERGIES No Information ENCOUNTERS Encounter Location Date Diagnosis [facility] [address] [id number] [address] [place] [id number] Oct, [facility] [address] [facility] [id number] [address] [place] [id number] Oct, [facility] [address] [facility] [id number] [address] [place] [id number] Aug, [facility] [address] [facility] [id number] [address] [place] [id number] Jul, [facility] [address] [facility] [id number] [address] [place] [id number] Jul, [facility] [address] [facility] [id number] [address] [place] [id number] Apr, [facility] [address] [id number] [address] [place] [id number] Mar, Hot flashes due to menopause N95.1 ; Anxiety disorder, unspecified type F41.9 ; Low back pain M54.5 and Encounter for immunization Z23 [facility] [address] [id number] [address] [place] [id number] Dec, Other chronic pain G89.29 an d Low back pain M54.5 [facility] [address] [id number] [address] [place] [id number] October, [facility] [address] [id number] [address] [place] [id number] October, [facility] [address] [id number] [address] [place] [id number] October, [facility] [address] [facility] [id number] [address] [place] [id number] October, Other chronic pain G89.29 an d Chronic hepatitis C without hepatic coma B18.2 [facility] [address] [id number] [address] [place] [address] Aug, Bipolar disorder, in partial remission, most recent episode hypomanic F31.71 ; Attention deficit hyperactivity disorder (ADHD), combined type F90.2 and Anxiety disorder, unspecified type F41.9 [facility] [address] [id number] [address] [place] [id number] Aug, [facility] [address] [id number] [address] [place] [id number] Aug, Bipolar disorder, in partial remission, most recent episode hypomanic F31.71 [facility] [address] [id number] [address] [place] [id number] Aug, [facility] [address] [facility] [id number] [address] [place] [id number] Aug, Bipolar disorder, in partial remission, most recent episode hypomanic F31.71 [facility] [address] [id number] [address] [place] [id number] Aug, Bipolar disorder, in partial remission, most recent episode hypomanic F31.71 ; Attention deficit hyperactivity disorder (ADHD), combined type F90.2 and Anxiety disorder, unspecified type F41.9 [facility] [address] [id number] [address] [place] [id number] Aug, Low back pain M54.5 and Pain in left wrist M25.532 [facility] [address] [id number] [address] [place] [id number] Aug, [facility] [address] [id number] [address] [place] [id number] Jun, [facility] [address] [id number] [address] [place] [id number] Apr, Bipolar disorder, in partial remission, most recent episode hypomanic F31.71 [facility] [address] [id number] [address] [place] [id number] Apr, [facility] [address] [id number] [address] [place] [id number] Apr, Bipolar disorder, in partial remission, most recent episode hypomanic F31.71 ; Attention deficit hyperactivity disorder (ADHD), combined type F90.2 ; Anxiety disorder, unspecified type F41.9 and Other group home (current) drug therapy Z79.899 [facility] [address] [id number] [address] [place] [id number] Apr, Bipolar disorder, in partial remission, most recent episode hypomanic F31.71 [facility] [address] [id number] [address] [place] [address] Apr, Bipolar disorder, in partial remission, most recent episode hypomanic F31.71 [facility] [address] [id number] [address] [place] [id number] Mar, [facility] [address] [id number] [address] [place] [id number] Mar, Bipolar disorder, in partial remission, most recent episode hypomanic F31.71 ; Encounter for immunization Z23 and Low back pain M54.5 [facility] [address] [facility] [id number] [address] [place] [id number] Mar, Bipolar disorder, in partial remission, most recent episode hypomanic F31.71 [facility] [address] [facility] [id number] [address] [place] [id number] Mar, Bipolar disorder, in partial remission, most recent episode hypomanic F31.71 [facility] [address] [facility] [id number] [address] [place] [address] Jan, Bipolar disorder, in partial remission, most recent episode hypomanic F31.71 [facility] [address] [facility] [id number] [address] [place] [id number] Jan, Bipolar disorder, in partial remission, most recent episode hypomanic F31.71 [facility] [address] [facility] [id number] [address] [place] [id number] Dec, Bipolar disorder, in partial remission, most recent episode hypomanic F31.71 [facility] [address] [facility] [id number] [address] [place] [id number] Dec, Bipolar disorder, in partial remission, most recent episode hypomanic F31.71 ; Attention deficit hyperactivity disorder (ADHD), combined type F90.2 ; Anxiety disorder, unspecified type F41.9 and Other group home (current) drug therapy Z79.899 [facility] [address] [facility] [id number] [address] [place] [id number] Dec, Bipolar disorder, in partial remission, most recent episode hypomanic F31.71 [facility] [address] [facility] [id number] [address] [place] [address] Dec, Bipolar disorder, in partial remission, most recent episode hypomanic F31.71 [facility] [address] [facility] [id number] [address] [place] [id number] October, Bipolar disorder, in partial remission, most recent episode hypomanic F31.71 [facility] [address] [id number] [address] [place] [id number] October, [facility] [address] [id number] [address] [place] [phone] October, [facility] [address] [id number] [address] [place] [id number] Oct, Bipolar disorder, in partial remission, most recent episode hypomanic F31.71 ; Attention deficit hyperactivity disorder (ADHD), combined type F90.2 ; Anxiety disorder, unspecified type F41.9 and Encounter for drug screening Z02.83 [facility] [address] [id number] [address] [place] [id number] Oct, Bipolar disorder, in partial remission, most recent episode hypomanic F31.71 [facility] [address] [facility] [id number] [address] [place] [id number] Oct, Bipolar disorder, in partial remission, most recent episode hypomanic F31.71 [facility] [address] [id number] [address] [place] [id number] Aug, Bipolar disorder, in partial remission, most recent episode hypomanic F31.71 [facility] [address] [facility] [id number] [address] [place] [id number] Aug, Bipolar disorder, in partial remission, most recent episode hypomanic F31.71 [facility] [address] [facility] [id number] [address] [place] [id number] Aug, Bipolar disorder, in partial remission, most recent episode hypomanic F31.71 [facility] [address] [facility] [id number] [address] [place] [id number] Jul, Bipolar disorder, in partial remission, most recent episode hypomanic F31.71 ; Attention deficit hyperactivity disorder (ADHD), combined type F90.2 and Anxiety disorder, unspecified type F41.9 [facility] [address] [id number] [address] [place] [id number] Jul, Bipolar disorder, in partial remission, most recent episode hypomanic F31.71 [facility] [address] [facility] [id number] [address] [place] [id number] Jun, Bipolar disorder, in partial remission, most recent episode hypomanic F31.71 [facility] [address] [id number] [address] [place] [id number] May, Bipolar disorder, in partial remission, most recent episode hypomanic F31.71 [facility] [address] [id number] [address] [place] [id number] May, Bipolar disorder, in partial remission, most recent episode hypomanic F31.71 [facility] [address] [facility] [id number] [address] [place] [id number] Apr, [facility] [address] [facility] [id number] [address] [place] [id number] Apr, Bipolar disorder, in partial remission, most recent episode hypomanic F31.71 ; Attention deficit hyperactivity disorder (ADHD), combined type F90.2 ; Anxiety disorder, unspecified type F41.9 and Cannabis abuse F12.10 [facility] [address] [facility] [id number] [address] [place] [id number] Apr, Attention deficit hyperactiv ity disorder (ADHD), combined type F90.2 [facility] [address] [facility] [id number] [address] [place] [id number] Mar, Attention deficit hyperactiv ity disorder (ADHD), combined type F90.2 [facility] [address] [id number] [address] [place] [id number] 14 Mar, 2017 Anxiety disorder, unspecifie d type F41.9 [facility] [address] [facility] [id number] [address] [place] [phone] Jan, Attention deficit hyperactiv ity disorder (ADHD), combined type F90.2 [facility] [address] [facility] [id number] [address] [place] [id number] Jan, Anxiety disorder, unspecifie d type F41.9 [facility] [address] [facility] [id number] [address] [place] [id number] Jan, Other chronic pain G89.29 ; Chronic hepatitis C without hepatic coma B18.2 and Bipolar 1 disorder F31.9 [facility] [address] [id number] [address] [place] [id number] Dec, Attention deficit hyperactiv ity disorder (ADHD), combined type F90.2 [facility] [address] [id number] [address] [place] [id number] Dec, Bipolar disorder, in partial remission, most recent episode hypomanic F31.71 ; Attention deficit hyperactivity disorder (ADHD), combined type F90.2 and Anxiety disorder, unspecified type F41.9 [facility] [address] [facility] [id number] [address] [place] [id number] Dec, Bipolar disorder, in partial remission, most recent episode hypomanic F31.71 ; Attention deficit hyperactivity disorder (ADHD), combined type F90.2 and Anxiety disorder, unspecified type F41.9 [facility] [address] [facility] [id number] [address] [place] [id number] Dec, Bipolar 1 disorder F31.9 and Attention deficit R41.840 [facility] [address] [facility] [id number] [address] [place] [id number] Oct, Other chronic pain G89.29 ; Alopecia L65.9 and Screening, lipid Z13.220 [facility] [address] [facility] [id number] [address] [place] [id number] Oct, [facility] [address] [facility] [id number] [address] [place] [id number] Aug, [facility] [address] [facility] [id number] [address] [place] [id number] Aug, Eustachian tube dysfunction, right H69.81 ; Vertigo R42 and Other chronic pain G89.29 [facility] [address] [id number] [address] [place] [phone] Aug, [facility] [address] [id number] [address] [place] [id number] Jun, [facility] [address] [id number] [address] [place] [id number] Jun, Low back pain M54.5 and Othe r chronic pain G89.29 [facility] [address] [id number] [address] [place] [id number] Jun, [facility] [address] [id number] [address] [place] [address] May, [facility] [address] [id number] [address] [place] [address] Jan, [facility] [address] [id number] [address] [place] [id number] Dec, [facility] [address] [id number] [address] [place] [id number] Dec, [facility] [address] [id number] [address] [place] [phone] Jun, [facility] [address] [facility] [id number] [address] [place] [address] Apr, Eustachian tube dysfunction, unspecified laterality H69.80 ; Hot flashes N95.1 and Encounter for immunization Z23 [facility] [address] [id number] [address] [place] [id number] Jan, [facility] [address] [id number] [address] [place] [id number] Jan, [facility] [address] [id number] [address] [place] [id number] Jan, [facility] [address] [id number] [address] [place] [id number] Jan, [facility] [address] [id number] [address] [place] [id number] Jan, Encounter to establish care V65.8 ; Bipolar 1 disorder 296.7 ; Abdominal pain 789.00 ; Constipation 564.00 ; Hard of hearing 389.9 and Drug abuse 305.90 [facility] [address] [id number] [address] [place] [id number] Dec, [facility] [address] [id number] [address] [place] [id number] October, [facility] [address] [id number] [address] [place] [id number] October, [facility] [address] [id number] [address] [place] [id number] Oct, [facility] [address] [id number] [address] [place] [id number] Oct, [facility] [address] [id number] [address] [place] [id number] Oct, [facility] [address] [id number] [address] [place] [id number] Aug, [facility] [address] [id number] [address] [place] [id number] Aug, [facility] [address] [id number] [address] [place] [id number] Aug, [facility] [address] [id number] [address] [place] [id number] Aug, [facility] [address] [id number] [address] [place] [id number] Aug, [facility] [address] [id number] [address] [place] [id number] Aug, [facility] [address] [id number] [address] [place] [id number] Aug, [facility] [address] [id number] [address] [place] [address], [place] [id number] Aug, 2014 [facility] [address] [id number] [address] [place] [address], [place] [id number] Aug, 2014 [facility] [address] [id number] [address] [place] [address], [place] [id number] Aug, 2014 [facility] [address] [id number] [address] [place] [address], [place] [id number] Aug, 2014 [facility] [address] [id number] [address] [place] [address], [place] [id number] Aug, 2014 [facility] [address] [id number] [address] [place] [address], [place] [id number] Aug, 2014 [facility] [address] [id number] [address] [place] [address], [place] [id number] Aug, 2014 [facility] [address] [id number] [address] [place] [address], [place] [id number] Aug, [facility] [address] [id number] [address] [place] [address], [place] [id number] Jul, [facility] [address] [id number] [address] [place] [address], [place] [id number] Jul, [facility] [address] [id number] [address] [place] [address], [place] [id number] Jul, [facility] [address] [id number] [address] [place] [address], [place] [id number] Jul, [facility] [address] [id number] [address] [place] [address], [place] [id number] Jul, [facility] [address] [id number] [address] [place] [address], [place] [id number] Jul, [facility] [address] [id number] [address] [place] [address], [place] [id number] Jul, [facility] [address] [id number] [address] [place] [address], [place] [id number] Jul, [facility] [address] [id number] [address] [place] [address], [place] [id number] Jun, [facility] [address] [id number] [address] [place] [address], [place] [id number] Jun, [facility] [address] [id number] [address] [place] [address], [place] [id number] Jun, [facility] [address] [id number] [address] [place] [address], [place] [id number] Jun, [facility] [address] [id number] [address] [place] [address], [place] [id number] Jun, [facility] [address] [id number] [address] [place] [address], [place] [id number] Jun, [facility] [address] [id number] [address] [place] [address], [place] [id number] Jun, [facility] [address] [id number] [address] [place] [address], [place] [id number] Jun, [facility] [address] [id number] [address] [place] [address], [place] [id number] Jun, [facility] [address] [id number] [address] [place] [address], [place] [id number] Jun, [facility] [address] [id number] [address] [place] [address], [place] [id number] Jun, [facility] [address] [id number] [address] [place] [address], [place] [id number] May, [facility] [address] [id number] [address] [place] [address], [place] [id number] May, [facility] [address] [id number] [address] [place] [address], [place] [id number] May, [facility] [address] [id number] [address] [place] [address], [place] [id number] May, [facility] [address] [id number] [address] [place] [address], [place] [id number] May, [facility] [address] [id number] [address] [place] [address], [place] [id number] May, [facility] [address] [id number] [address] [place] [address], [place] [id number] May, [facility] [address] [id number] [address] [place] [address], [place] [id number] Apr, [facility] [address] [id number] [address] [place] [address], [place] [id number] Apr, [facility] [address] [id number] [address] [place] [address], [place] [id number] Apr, [facility] [address] [id number] [address] [place] [address], [place] [id number] Apr, [facility] [address] [id number] [address] [place] [address], [place] [id number] Apr, [facility] [address] [id number] [address] [place] [address], [place] [id number] Apr, [facility] [address] [id number] [address] [place] [address], [place] [id number] 29 Mar, 2014 [facility] [address] [id number] [address] [place] [address], [place] [id number] 29 Mar, 2014 [facility] [address] [id number] [address] [place] [address], [place] [id number] Mar, [facility] [address] [id number] [address] [place] [address], [place] [id number] Mar, [facility] [address] [id number] [address] [place] [address], [place] [id number] Mar, [facility] [address] [id number] [address] [place] [address], [place] [id number] Mar, [facility] [address] [id number] [address] [place] [address], [place] [id number] Jan, [facility] [address] [id number] [address] [place] [id number] Jan, [facility] [address] [id number] [facility] [place] [address] Jan, [facility] [address] [id number] [address] [place] [address], [place] [address] Jan, [facility] [address] [id number] [address] [place] [address], [place] [address] Dec, [facility] [address] [id number] [address] [place] [address], [place] [address] Dec, [facility] [address] [id number] [address] [place] [address], [place] [id number] Dec, [facility] [address] [id number] [address] [place] [address], [place] [id number] Dec, [facility] [address] [id number] [address] [place] [address], [place] [id number] Dec, [facility] [address] [id number] [address] [place] [address], [place] [id number] Dec, [facility] [address] [id number] [address] [place] [address], [place] [address] Dec, [facility] [address] [id number] [address] [place] [address], [place] [address] Dec, [facility] [address] [id number] [address] [place] [address], [place] [id number] Dec, [facility] [address] [id number] [address] [place] [address], [place] [id number] Dec, [facility] [address] [id number] [address] [place] [address], [place] [id number] Dec, [facility] [address] [id number] [address] [place] [address], [place] [id number] Dec, [facility] [address] [id number] [address] [place] [address], [place] [id number] October, [facility] [address] [id number] [address] [place] [address], [place] [address] October, [facility] [address] [id number] [address] [place] [address], [place] [id number] October, [facility] [address] [id number] [address] [place] [address], [place] [address] October, [facility] [address] [id number] [address] [place] [address], [place] [id number] October, [facility] [address] [id number] [address] [place] [address], [place] [address] October, [facility] [address] [id number] [address] [place] [address], [place] [phone] Oct, [facility] [address] [id number] [address] [place] [address], [place] [id number] Oct, [facility] [address] [id number] [address] [place] [address], [place] [id number] Oct, [facility] [address] [id number] [address] [place] [address], [place] [id number] Oct, [facility] [address] [id number] [address] [place] [address], [place] [id number] Oct, [facility] [address] [id number] [address] [place] [address], [place] [id number] Oct, [facility] [address] [id number] [address] [place] [address], [place] [id number] Oct, [facility] [address] [id number] [address] [place] [address], [place] [id number] Oct, [facility] [address] [id number] [address] [place] [address], [place] [address] Oct, [facility] [address] [id number] [address] [place] [address], [place] [id number] Oct, [facility] [address] [id number] [facility] [place] [address] 08 Oct, 2013 [facility] [address] [id number] [address] [place] [address], [place] [id number] 08 Oct, 2013 [facility] [address] [id number] [address] [place] [address], [place] [id number] 15 Aug, 2013 [facility] [address] [id number] [address] [place] [address], [place] [id number] 15 Aug, 2013 [facility] [address] [id number] [address] [place] [address], [place] [id number] Aug, [facility] [address] [id number] [address] [place] [address], [place] [address] Aug, [facility] [address] [id number] [address] [place] [address], [place] [id number] 05 Aug, 2013 [facility] [address] [id number] [address] [place] [address], [place] [id number] 05 Aug, 2013 [facility] [address] [id number] [address] [place] [address], [place] [id number] 04 Aug, 2013 [facility] [address] [id number] [address] [place] [address], [place] [id number] Aug, [facility] [address] [id number] [address] [place] [address], [place] [id number] Aug, [facility] [address] [id number] [address] [place] [address], [place] [id number] Aug, [facility] [address] [id number] [address] [place] [address], [place] [id number] Aug, [facility] [address] [id number] [address] [place] [address], [place] [address] Aug, [facility] [address] [id number] [address] [place] [address], [place] [id number] Aug, [facility] [address] [id number] [address] [place] [address], [place] [id number] 20 Aug, 2013 [facility] [address] [id number] [address] [place] [address], [place] [id number] 14 Aug, 2013 [facility] [address] [id number] [address] [place] [address], [place] [id number] 14 Aug, 2013 [facility] [address] [id number] [address] [place] [address], [place] [id number] 14 Aug, 2013 [facility] [address] [id number] [address] [place] [address], [place] [id number] 14 Aug, 2013 [facility] [address] [id number] [address] [place] [address], [place] [id number] 07 Aug, 2013 [facility] [address] [id number] [address] [place] [address], [place] [id number] 07 Aug, 2013 [facility] [address] [id number] [address] [place] [address], [place] [id number] 06 Aug, 2013 [facility] [address] [id number] [address] [place] [address], [place] [id number] 06 Aug, 2013 [facility] [address] [id number] [address] [place] [address], [place] [id number] 04 Aug, 2013 [facility] [address] [id number] [address] [place] [address], [place] [id number] 04 Aug, 2013 [facility] [address] [id number] [address] [place] [address], [place] [id number] Aug, [facility] [address] [id number] [address] [place] [address], [place] [address] Jul, [facility] [address] [id number] [address] [place] [address], [place] [id number] Jul, [facility] [address] [id number] [address] [place] [address], [place] [id number] Jul, [facility] [address] [id number] [address] [place] [address], [place] [address] Jul, [facility] [address] [id number] [address] [place] [address], [place] [address] Jul, [facility] [address] [id number] [address] [place] [address], [place] [id number] Jul, [facility] [address] [id number] [address] [place] [address], [place] [id number] Jul, [facility] [address] [id number] [address] [place] [address], [place] [id number] Jul, [facility] [address] [id number] [address] [place] [address], [place] [id number] Jul, [facility] [address] [id number] [address] [place] [address], [place] [id number] Jul, [facility] [address] [id number] [address] [place] [address], [place] [id number] Jul, [facility] [address] [id number] [address] [place] [address], [place] [id number] Jul, [facility] [address] [id number] [address] [place] [address], [place] [id number] Jul, [facility] [address] [id number] [address] [place] [address], [place] [id number] Jul, [facility] [address] [id number] [address] [place] [address], [place] [id number] Jul, [facility] [address] [id number] [address] [place] [address], [place] [id number] Jul, [facility] [address] [id number] [address] [place] [address], [place] [id number] Jul, [facility] [address] [id number] [address] [place] [address], [place] [id number] Jul, [facility] [address] [id number] [address] [place] [address], [place] [id number] Jul, [facility] [address] [id number] [address] [place] [address], [place] [address] Jul, [facility] [address] [id number] [address] [place] [address], [place] [phone] Jun, [facility] [address] [id number] [address] [place] [address], [place] [address] Jun, [facility] [address] [id number] [address] [place] [address], [place] [phone] Jun, [facility] [address] [id number] [address] [place] [address], [place] [address] Jun, [facility] [address] [id number] [address] [place] [address], [place] [id number] Jun, [facility] [address] [id number] [address] [place] [address], [place] [address] Jun, [facility] [address] [id number] [address] [place] [address], [place] [address] Jun, [facility] [address] [id number] [address] [place] [address], [place] [id number] Jun, [facility] [address] [id number] [address] [place] [address], [place] [address] Jun, [facility] [address] [id number] [address] [place] [address], [place] [phone] Jun, [facility] [address] [id number] [address] [place] [address], [place] [id number] Jun, [facility] [address] [id number] [address] [place] [address], [place] [id number] Jun, [facility] [address] [id number] [address] [place] [address], [place] [address] Jun, [facility] [address] [id number] [address] [place] [address], [place] [id number] Jun, [facility] [address] [id number] [address] [place] [address], [place] [address] Jun, [facility] [address] [id number] [address] [place] [address], [place] [id number] 18 Jun, 2013 [facility] [address] [id number] [address] [place] [address], [place] [id number] 18 Jun, 2013 [facility] [address] [id number] [address] [place] [address], [place] [id number] 17 Jun, 2013 [facility] [address] [id number] [address] [place] [address], [place] [address] 17 Jun, 2013 [facility] [address] [id number] [address] [place] [address], [place] [id number] 13 Jun, 2013 [facility] [address] [id number] [address] [place] [address], [place] [address] 12 Jun, 2013 [facility] [address] [id number] [address] [place] [address], [place] [id number] 12 Jun, 2013 [facility] [address] [id number] [address] [place] [address], [place] [address] 09 Jun, 2013 [facility] [address] [id number] [address] [place] [address], [place] [id number] 05 Jun, 2013 [facility] [address] [id number] [address] [place] [address], [place] [id number] 05 Jun, 2013 [facility] [address] [id number] [address] [place] [address], [place] [address] 04 Jun, 2013 [facility] [address] [id number] [address] [place] [address], [place] [address] 04 Jun, 2013 [facility] [address] [id number] [address] [place] [address], [place] [id number] 17 May, 2013 [facility] [address] [id number] [address] [place] [address], [place] [id number] 17 May, 2013 [facility] [address] [id number] [address] [place] [address], [place] [id number] May, [facility] [address] [id number] [address] [place] [address], [place] [id number] May, [facility] [address] [id number] [address] [place] [address], [place] [id number] May, [facility] [address] [id number] [address] [place] [address], [place] [address] May, [facility] [address] [id number] [address] [place] [address], [place] [address] Apr, [facility] [address] [id number] [address] [place] [address], [place] [address] Apr, [facility] [address] [id number] [address] [place] [address], [place] [id number] Apr, [facility] [address] [id number] [address] [place] [address], [place] [address] Apr, [facility] [address] [id number] [address] [place] [address], [place] [address] Apr, [facility] [address] [id number] [address] [place] [address], [place] [address] Apr, [facility] [address] [id number] [address] [place] [address], [place] [id number] Apr, [facility] [address] [id number] [address] [place] [id number] Apr, [facility] [address] [id number] [address] [place] [id number] 26 Mar, 2013 [facility] [address] [id number] [address] [place] [id number] 24 Sep, 2012 [facility] [address] [id number] [address] [place] [address], [place] [id number] 17 Mar, 2013 [facility] [address] [id number] [address] [place] [id number] 17 Mar, 2012 [facility] [address] [id number] [address] [place] [id number] 11 Mar, 2012 [facility] [address] [id number] [address] [place] [id number] 10 Mar, 2013 [facility] [address] [id number] [address] [place] [address], [place] [id number] 05 Mar, 2013 [facility] [address] [id number] [address] [place] [address], [place] [id number] 04 Mar, 2013 [facility] [address] [id number] [address] [place] [address], [place] [id number] Jan, [facility] [address] [id number] [address] [place] [address], [place] [address] Jan, [facility] [address] [id number] [address] [place] [address], [place] [address] Jan, [facility] [address] [id number] [address] [place] [address], [place] [id number] Jan, [facility] [address] [id number] [address] [place] [address], [place] [id number] Jan, [facility] [address] [id number] [address] [place] [address], [place] [address] Jan, [facility] [address] [id number] [address] [place] [address], [place] [id number] Dec, [facility] [address] [id number] [address] [place] [address], [place] [id number] Dec, [facility] [address] [id number] [address] [place] [address], [place] [id number] Dec, [facility] [address] [id number] [address] [place] [address], [place] [id number] Dec, [facility] [address] [id number] [address] [place] [address], [place] [id number] 18 Dec, 2012 [facility] [address] [id number] [address] [place] [address], [place] [id number] 17 Dec, 2012 [facility] [address] [id number] [address] [place] [address], [place] [id number] 16 Dec, 2012 [facility] [address] [id number] [address] [place] [address], [place] [id number] 16 Dec, 2012 [facility] [address] [id number] [address] [place] [address], [place] [id number] 15 Dec, 2012 [facility] [address] [id number] [address] [place] [address], [place] [id number] 10 Dec, 2012 [facility] [address] [id number] [address] [place] [address], [place] [id number] Dec, [facility] [address] [id number] [address] [place] [address], [place] [id number] Dec, [facility] [address] [id number] [address] [place] [address], [place] [id number] Dec, [facility] [address] [id number] [address] [place] [address], [place] [id number] Dec, [facility] [address] [id number] [address] [place] [address], [place] [id number] Dec, [facility] [address] [id number] [address] [place] [address], [place] [id number] Dec, [facility] [address] [id number] [address] [place] [address], [place] [id number] October, [facility] [address] [id number] [address] [place] [address], [place] [id number] October, [facility] [address] [id number] [address] [place] [address], [place] [id number] October, [facility] [address] [id number] [address] [place] [address], [place] [id number] October, [facility] [address] [id number] [address] [place] [address], [place] [id number] October, [facility] [address] [id number] [address] [place] [address], [place] [id number] October, [facility] [address] [id number] [address] [place] [address], [place] [id number] October, [facility] [address] [id number] [address] [place] [address], [place] [id number] Oct, [facility] [address] [id number] [address] [place] [address], [place] [id number] Oct, [facility] [address] [id number] [address] [place] [address], [place] [id number] Oct, [facility] [address] [id number] [address] [place] [address], [place] [id number] Oct, [facility] [address] [id number] [address] [place] [address], [place] [id number] Oct, [facility] [address] [id number] [address] [place] [address], [place] [id number] 18 Oct, 2012 [facility] [address] [id number] [address] [place] [address], [place] [id number] Oct, [facility] [address] [id number] [address] [place] [address], [place] [id number] 15 Oct, 2012 [facility] [address] [id number] [address] [place] [address], [place] [id number] Oct, [facility] [address] [id number] [address] [place] [address], [place] [id number] Oct, [facility] [address] [id number] [address] [place] [address], [place] [id number] Oct, [facility] [address] [id number] [address] [place] [address], [place] [id number] Oct, [facility] [address] [id number] [address] [place] [address], [place] [id number] Aug, [facility] [address] [id number] [address] [place] [address], [place] [id number] Aug, [facility] [address] [id number] [address] [place] [address], [place] [id number] Aug, [facility] [address] [id number] [address] [place] [address], [place] [id number] 06 Aug, 2012 [facility] [address] [id number] [address] [place] [address], [place] [id number] 05 Aug, 2012 [facility] [address] [id number] [address] [place] [address], [place] [id number] 05 Aug, 2012 [facility] [address] [id number] [address] [place] [address], [place] [id number] 20 Aug, 2012 [facility] [address] [id number] [address] [place] [address], [place] [id number] 14 Aug, 2012 [facility] [address] [id number] [address] [place] [address], [place] [id number] 12 Aug, 2012 [facility] [address] [id number] [address] [place] [address], [place] [id number] 11 Aug, 2012 [facility] [address] [id number] [address] [place] [address], [place] [id number] 29 Jul, 2012 [facility] [address] [id number] [address] [place] [address], [place] [id number] 15 Jul, 2012 [facility] [address] [id number] [address] [place] [address], [place] [id number] 08 Jul, 2012 [facility] [address] [id number] [address] [place] [address], [place] [id number] 20 Jun, 2012 [facility] [address] [id number] [address] [place] [address], [place] [id number] 18 Jun, 2012 [facility] [address] [id number] [address] [place] [address], [place] [id number] 18 Jun, 2012 [facility] [address] [id number] [address] [place] [address], [place] [id number] 18 Jun, 2012 [facility] [address] [id number] [address] [place] [address], [place] [id number] 18 Jun, 2012 [facility] [address] [id number] [address] [place] [address], [place] [id number] 14 Jun, 2012 [facility] [address] [id number] [address] [place] [address], [place] [id number] 14 Jun, 2012 [facility] [address] [id number] [address] [place] [address], [place] [id number] 13 Jun, 2012 [facility] [address] [id number] [address] [place] [address], [place] [id number] 13 Jun, 2012 [facility] [address] [id number] [address] [place] [address], [place] [id number] 11 Jun, 2012 [facility] [address] [id number] [address] [place] [address], [place] [id number] 11 Jun, 2012 [facility] [address] [id number] [address] [place] [address], [place] [id number] 11 Jun, 2012 [facility] [address] [id number] [address] [place] [address], [place] [id number] 11 Jun, 2012 [facility] [address] [id number] [address] [place] [address], [place] [id number] 07 Jun, 2012 [facility] [address] [id number] [address] [place] [address], [place] [id number] Jun, [facility] [address] [address] [id number] [address] [place] [address], [place] [id number] 06 Jun, 2012 [facility] [address] [id number] [address] [place] [address], [place] [address] Jun, [facility] [address] [id number] [address] [place] [address], [place] [id number] Jun, [facility] [address] [id number] [address] [place] [address], [place] [id number] Jun, [facility] [address] [id number] [address] [place] [address], [place] [id number] 05 Jun, 2012 [facility] [address] [id number] [address] [place] [address], [place] [id number] 05 Jun, 2012 [facility] [address] [id number] [address] [place] [id number] Jun, [facility] [address] [id number] [address] [place] [address], [place] [id number] Jun, [facility] [address] [id number] [address] [place] [id number] May, [facility] [address] [id number] [address] [place] [id number] May, [facility] [address] [id number] [address] [place] [id number] May, [facility] [address] [id number] [address] [place] [address], [place] [id number] May, [facility] [address] [id number] [address] [place] [id number] May, [facility] [address] [id number] [address] [place] [id number] May, [facility] [address] [id number] [address] [place] [id number] May, [facility] [address] [id number] [address] [place] [id number] May, [facility] [address] [id number] [address] [place] [id number] Apr, [facility] [address] [id number] [address] [place] [id number] 30 Apr, 2012 [facility] [address] [id number] [address] [place] [id number] 29 Apr, 2012 [facility] [address] [id number] [address] [place] [id number] Apr, [facility] [address] [id number] [address] [place] [id number] Apr, [facility] [address] [id number] [address] [place] [id number] Apr, [facility] [address] [id number] [address] [place] [address], [place] [id number] Apr, [facility] [address] [id number] [address] [place] [address], [place] [id number] Apr, [facility] [address] [id number] [address] [place] [address], [place] [id number] Apr, [facility] [address] [id number] [address] [place] [address], [place] [id number] 08 Apr, 2012 [facility] [address] [id number] [address] [place] [address], [place] [id number] Apr, [facility] [address] [id number] [address] [place] [address], [place] [id number] Apr, [facility] [address] [id number] [address] [place] [address], [place] [id number] 19 Mar, 2012 [facility] [address] [id number] [address] [place] [address], [place] [id number] 18 Mar, 2012 [facility] [address] [id number] [address] [place] [address], [place] [id number] Mar, [facility] [address] [id number] [address] [place] [address], [place] [id number] Mar, [facility] [address] [id number] [address] [place] [id number] Mar, [facility] [address] [id number] [address] [place] [id number] Mar, [facility] [address] [id number] [address] [place] [id number] Mar, [facility] [address] [id number] [address] [place] [address], [place] [address] Jan, [facility] [address] [id number] [address] [place] [address], [place] [id number] Jan, [facility] [address] [id number] [address] [place] [id number] Jan, [facility] [address] [id number] [address] [place] [address], [place] [id number] Jan, [facility] [address] [id number] [address] [place] [address], [place] [id number] Jan, [facility] [address] [id number] [address] [place] [address], [place] [id number] Jan, [facility] [address] [id number] [address] [place] [address], [place] [id number] Jan, [facility] [address] [id number] [address] [place] [address], [place] [id number] Jan, [facility] [address] [id number] [address] [place] [address], [place] [id number] Jan, [facility] [address] [id number] [address] [place] [address], [place] [id number] Jan, [facility] [address] [id number] [address] [place] [address], [place] [id number] Jan, [facility] [address] [id number] [address] [place] [address], [place] [id number] Dec, [facility] [address] [id number] [address] [place] [address], [place] [id number] Dec, [facility] [address] [id number] [address] [place] [address], [place] [id number] Dec, [facility] [address] [id number] [address] [place] [address], [place] [id number] Dec, [facility] [address] [id number] [address] [place] [address], [place] [id number] Dec, [facility] [address] [id number] [address] [place] [address], [place] [id number] Dec, [facility] [address] [id number] [address] [place] [address], [place] [id number] Dec, [facility] [address] [id number] [address] [place] [address], [place] [id number] 17 Jan, 2012 [facility] [address] [id number] [address] [place] [address], [place] [id number] 16 Jan, 2012 [facility] [address] [id number] [address] [place] [address], [place] [id number] Dec, [facility] [address] [id number] [address] [place] [address], [place] [phone] Dec, [facility] [address] [id number] [address] [place] [address], [place] [id number] Dec, [facility] [address] [id number] [address] [place] [address], [place] [id number] Dec, [facility] [address] [id number] [address] [place] [address], [place] [id number] Dec, [facility] [address] [id number] [address] [place] [address], [place] [id number] Dec, [facility] [address] [id number] [address] [place] [address], [place] [id number] Dec, [facility] [address] [id number] [address] [place] [address], [place] [id number] 15 Dec, 2011 [facility] [address] [id number] [address] [place] [address], [place] [id number] Dec, [facility] [address] [id number] [address] [place] [address], [place] [id number] 05 Dec, 2011 [facility] [address] [id number] [address] [place] [address], [place] [phone] October, [facility] [address] [id number] [address] [place] [address], [place] [phone] October, [facility] [address] [id number] [address] [place] [address], [place] [phone] October, [facility] [address] [id number] [address] [place] [address], [place] [id number] October, [facility] [address] [id number] [address] [place] [address], [place] [id number] October, [facility] [address] [id number] [address] [place] [address], [place] [id number] October, [facility] [address] [id number] [address] [place] [address], [place] [id number] Oct, [facility] [address] [id number] [address] [place] [address], [place] [id number] Oct, [facility] [address] [id number] [address] [place] [address], [place] [id number] Oct, [facility] [address] [id number] [address] [place] [address], [place] [id number] Oct, [facility] [address] [id number] [address] [place] [address], [place] [id number] Oct, [facility] [address] [id number] [address] [place] [address], [place] [id number] Oct, [facility] [address] [id number] [address] [place] [address], [place] [phone] Oct, [facility] [address] [id number] [address] [place] [address], [place] [address] Aug, [facility] [address] [id number] [address] [place] [address], [place] [id number] Aug, [facility] [address] [id number] [address] [place] [address], [place] [id number] Aug, [facility] [address] [id number] [address] [place] [address], [place] [id number] Aug, [facility] [address] [id number] [address] [place] [address], [place] [address] Aug, [facility] [address] [id number] [address] [place] [address], [place] [id number] Aug, [facility] [address] [id number] [address] [place] [address], [place] [id number] Aug, [facility] [address] [id number] [address] [place] [address], [place] [phone] Aug, [facility] [address] [id number] [address] [place] [address], [place] [id number] Aug, [facility] [address] [id number] [address] [place] [address], [place] [id number] Jul, [facility] [address] [id number] [address] [place] [address], [place] [id number] Jul, [facility] [address] [id number] [address] [place] [address], [place] [id number] Jul, [facility] [address] [id number] [address] [place] [address], [place] [id number] Jul, [facility] [address] [id number] [address] [place] [address], [place] [id number] Jun, [facility] [address] [id number] [address] [place] [address], [place] [id number] Jun, [facility] [address] [id number] [address] [place] [address], [place] [address] May, [facility] [address] [id number] [address] [place] [address], [place] [address] May, [facility] [address] [id number] [address] [place] [address], [place] [address] May, [facility] [address] [id number] [address] [place] [address], [place] [phone] May, [facility] [address] [id number] [address] [place] [address], [place] [id number] May, [facility] [address] [id number] [address] [place] [address], [place] [id number] Apr, [facility] [address] [id number] [address] [place] [address], [place] [address] Apr, [facility] [address] [id number] [address] [place] [id number] Apr, [facility] [address] [id number] [address] [place] [id number] Jan, [facility] [address] [id number] [address] [place] [id number] Dec, [facility] [address] [id number] [address] [place] [id number] October, [facility] [address] [id number] [address] [place] [id number] Jun, [facility] [address] [id number] [address] [place] [id number] Apr, [facility] [address] [id number] [address] [place] [id number] Apr, [facility] [address] [facility] [id number] [address] [place] [id number] Apr, [facility] [address] [id number] [address] [place] [id number] Jun, IMMUNIZATIONS No Known Immunizations SOCIAL HISTORY [...]
--- OUTSIDE RECORDS SUMMARY | 2020-01-25 13:29 | XMS REPORT ---
Author Author Ana Brannon [facility] Address [address] [place] [address] Care Team Providers Care [employer] Name Role Phone Clovis ANEUDY Unavailable PROBLEMS Type Condition ICD9-CM Code NON19-ER Code Onset Dates Condition S tatus SNOMED Code Problem Chronic hepatitis C without hepatic coma B18.2 Active 164108919 Problem Cannabis abuse F12.10 Active 04918 009 Problem Bipolar 1 disorder F31.9 Active 3 97251343 Problem Attention deficit hyperactivity disorder (ADHD), combi luciano type F90.2 Active 28004947 Problem Attention deficit R41.840 Active 76 416366 Problem Hot flashes due to menopause N95.1 A ctive 015828484 Problem H/O laminectomy Z98.89 Active 1616 62115 Problem Other chronic pain G89.29 Active 8 9861145 Problem Anxiety disorder, unspecified type F41.9 Active 157195314 Problem Bipolar disorder, in partial remission, most rec ent episode hypomanic F31.71 Active [id number] ALLERGIES No Information ENCOUNTERS Encounter Location Date Diagnosis [facility] [address] [id number] [address] [place] [id number] Oct, [facility] [address] [facility] [id number] [address] [place] [phone] Oct, [facility] [address] [facility] [id number] [address] [place] [phone] Aug, [facility] [address] [facility] [id number] [address] [place] [phone] Jul, [facility] [address] [facility] [id number] [address] [place] [phone] Jul, [facility] [address] [facility] [id number] [address] [place] [phone] Apr, [facility] [address] [id number] [address] [place] [phone] Mar, Hot flashes due to menopause N95.1 ; Anxiety disorder, unspecified type F41.9 ; Low back pain M54.5 and Encounter for immunization Z23 [facility] [address] [id number] [address] [place] [phone] Dec, Other chronic pain G89.29 an d Low back pain M54.5 [facility] [address] [id number] [address] [place] [phone] October, [facility] [address] [id number] [address] [place] [phone] October, [facility] [address] [id number] [address] [place] [phone] October, [facility] [address] [facility] [id number] [address] [place] [id number] October, Other chronic pain G89.29 an d Chronic hepatitis C without hepatic coma B18.2 [facility] [address] [id number] [address] [place] [phone] Aug, Bipolar disorder, in partial remission, most recent episode hypomanic F31.71 ; Attention deficit hyperactivity disorder (ADHD), combined type F90.2 and Anxiety disorder, unspecified type F41.9 [facility] [address] [id number] [address] [place] [phone] Aug, [facility] [address] [id number] [address] [place] [id number] Aug, Bipolar disorder, in partial remission, most recent episode hypomanic F31.71 [facility] [address] [facility] [id number] [address] [place] [phone] Aug, [facility] [address] [facility] [id number] [address] [place] [phone] Aug, Bipolar disorder, in partial remission, most recent episode hypomanic F31.71 [facility] [address] [id number] [address] [place] [phone] Aug, Bipolar disorder, in partial remission, most recent episode hypomanic F31.71 ; Attention deficit hyperactivity disorder (ADHD), combined type F90.2 and Anxiety disorder, unspecified type F41.9 [facility] [address] [id number] [address] [place] [phone] Aug, Low back pain M54.5 and Pain in left wrist M25.532 [facility] [address] [id number] [address] [place] [phone] Aug, [facility] [address] [id number] [address] [place] [address] Jun, [facility] [address] [id number] [address] [place] [id number] Apr, Bipolar disorder, in partial remission, most recent episode hypomanic F31.71 [facility] [address] [id number] [address] [place] [phone] Apr, [facility] [address] [id number] [address] [place] [address] Apr, Bipolar disorder, in partial remission, most recent episode hypomanic F31.71 ; Attention deficit hyperactivity disorder (ADHD), combined type F90.2 ; Anxiety disorder, unspecified type F41.9 and Other longterm (current) drug therapy Z79.899 [facility] [address] [id number] [address] [place] [address] Apr, Bipolar disorder, in partial remission, most recent episode hypomanic F31.71 [facility] [address] [id number] [address] [place] [address] Apr, Bipolar disorder, in partial remission, most recent episode hypomanic F31.71 [facility] [address] [id number] [address] [place] [phone] Mar, [facility] [address] [id number] [address] [place] [phone] Mar, Bipolar disorder, in partial remission, most recent episode hypomanic F31.71 ; Encounter for immunization Z23 and Low back pain M54.5 [facility] [address] [id number] [address] [place] [phone] 17 Mar, 2018 Bipolar disorder, in partial remission, most recent episode hypomanic F31.71 [facility] [address] [id number] [address] [place] [phone] Mar, Bipolar disorder, in partial remission, most recent episode hypomanic F31.71 [facility] [address] [id number] [address] [place] [address] Jan, Bipolar disorder, in partial remission, most recent episode hypomanic F31.71 [facility] [address] [id number] [address] [place] [address] Jan, Bipolar disorder, in partial remission, most recent episode hypomanic F31.71 [facility] [address] [id number] [address] [place] [address] Dec, Bipolar disorder, in partial remission, most recent episode hypomanic F31.71 [facility] [address] [facility] [id number] [address] [place] [address] Dec, Bipolar disorder, in partial remission, most recent episode hypomanic F31.71 ; Attention deficit hyperactivity disorder (ADHD), combined type F90.2 ; Anxiety disorder, unspecified type F41.9 and Other longterm (current) drug therapy Z79.899 [facility] [address] [id number] [address] [place] [phone] Dec, Bipolar disorder, in partial remission, most recent episode hypomanic F31.71 [facility] [address] [facility] [id number] [address] [place] [phone] Dec, Bipolar disorder, in partial remission, most recent episode hypomanic F31.71 [facility] [address] [facility] [id number] [address] [place] [phone] October, Bipolar disorder, in partial remission, most recent episode hypomanic F31.71 [facility] [address] [id number] [address] [place] [phone] October, [facility] [address] [id number] [address] [place] [phone] October, [facility] [address] [id number] [address] [place] [phone] Oct, Bipolar disorder, in partial remission, most recent episode hypomanic F31.71 ; Attention deficit hyperactivity disorder (ADHD), combined type F90.2 ; Anxiety disorder, unspecified type F41.9 and Encounter for drug screening Z02.83 [facility] [address] [id number] [address] [place] [id number] Oct, Bipolar disorder, in partial remission, most recent episode hypomanic F31.71 [facility] [address] [id number] [address] [place] [phone] Oct, Bipolar disorder, in partial remission, most recent episode hypomanic F31.71 [facility] [address] [facility] [id number] [address] [place] [phone] Aug, Bipolar disorder, in partial remission, most recent episode hypomanic F31.71 [facility] [address] [facility] [id number] [address] [place] [id number] Aug, Bipolar disorder, in partial remission, most recent episode hypomanic F31.71 [facility] [address] [id number] [address] [place] [phone] Aug, Bipolar disorder, in partial remission, most recent episode hypomanic F31.71 [facility] [address] [facility] [id number] [address] [place] [id number] Jul, Bipolar disorder, in partial remission, most recent episode hypomanic F31.71 ; Attention deficit hyperactivity disorder (ADHD), combined type F90.2 and Anxiety disorder, unspecified type F41.9 [facility] [address] [id number] [address] [place] [id number] Jul, Bipolar disorder, in partial remission, most recent episode hypomanic F31.71 [facility] [address] [id number] [address] [place] [phone] Jun, Bipolar disorder, in partial remission, most recent episode hypomanic F31.71 [facility] [address] [id number] [address] [place] [address] May, Bipolar disorder, in partial remission, most recent episode hypomanic F31.71 [facility] [address] [id number] [address] [place] [phone] May, Bipolar disorder, in partial remission, most recent episode hypomanic F31.71 [facility] [address] [facility] [id number] [address] [place] [phone] Apr, [facility] [address] [facility] [id number] [address] [place] [address] Apr, Bipolar disorder, in partial remission, most recent episode hypomanic F31.71 ; Attention deficit hyperactivity disorder (ADHD), combined type F90.2 ; Anxiety disorder, unspecified type F41.9 and Cannabis abuse F12.10 [facility] [address] [facility] [id number] [address] [place] [phone] Apr, Attention deficit hyperactiv ity disorder (ADHD), combined type F90.2 [facility] [address] [id number] [address] [place] [phone] Mar, Attention deficit hyperactiv ity disorder (ADHD), combined type F90.2 [facility] [address] [id number] [address] [place] [phone] 14 Mar, 2017 Anxiety disorder, unspecifie d type F41.9 [facility] [address] [facility] [id number] [address] [place] [phone] Jan, Attention deficit hyperactiv ity disorder (ADHD), combined type F90.2 [facility] [address] [place] [id number] [address] [place] [phone] Jan, Anxiety disorder, unspecifie d type F41.9 [facility] [address] [place] [id number] [address] [place] [id number] Jan, Other chronic pain G89.29 ; Chronic hepatitis C without hepatic coma B18.2 and Bipolar 1 disorder F31.9 [facility] [address] [place] [id number] [address] [place] [id number] Dec, Attention deficit hyperactiv ity disorder (ADHD), combined type F90.2 [facility] [address] [place] [id number] [address] [place] [id number] Dec, Bipolar disorder, in partial remission, most recent episode hypomanic F31.71 ; Attention deficit hyperactivity disorder (ADHD), combined type F90.2 and Anxiety disorder, unspecified type F41.9 [place] [address] [place] [id number] [place] [address] Dec, Bipolar disorder, in partial remission, most recent episode hypomanic F31.71 ; Attention deficit hyperactivity disorder (ADHD), combined type F90.2 and Anxiety disorder, unspecified type F41.9 [place] [address] [place] [id number] [place] [address] Dec, Bipolar 1 disorder F31.9 and Attention deficit R41.840 [place] [address] [place] [id number] [address] [place] [address] Oct, Other chronic pain G89.29 ; Alopecia L65.9 and Screening, lipid Z13.220 [facility] [address] [place] [id number] [address] [place] [phone] Oct, [place] [address] [place] [id number] [place] [address] Aug, [place] [address] [place] [id number] [place] [address] Aug, Eustachian tube dysfunction, right H69.81 ; Vertigo R42 and Other chronic pain G89.29 [facility] [address] [id number] [address] [place] [phone] Aug, [facility] [address] [id number] [address] [place] [phone] Jun, [facility] [address] [id number] [address] [place] [address] Jun, Low back pain M54.5 and Othe r chronic pain G89.29 [facility] [address] [id number] [address] [place] [phone] Jun, [facility] [address] [id number] [address] [place] [phone] May, [facility] [address] [id number] [address] [place] [phone] Jan, [facility] [address] [id number] [address] [place] [phone] Dec, [facility] [address] [id number] [address] [place] [phone] Dec, [facility] [address] [id number] [address] [place] [address] Jun, [facility] [address] [facility] [id number] [address] [place] [address] Apr, Eustachian tube dysfunction, unspecified laterality H69.80 ; Hot flashes N95.1 and Encounter for immunization Z23 [facility] [address] [id number] [address] [place] [phone] Jan, [facility] [address] [id number] [address] [place] [address] Jan, [facility] [address] [id number] [address] [place] [phone] Jan, [facility] [address] [id number] [address] [place] [phone] Jan, [facility] [address] [id number] [address] [place] [address] Jan, Encounter to establish care V65.8 ; Bipolar 1 disorder 296.7 ; Abdominal pain 789.00 ; Constipation 564.00 ; Hard of hearing 389.9 and Drug abuse 305.90 [facility] [address] [id number] [address] [place] [address] Dec, [facility] [address] [id number] [address] [place] [address] October, [facility] [address] [id number] [address] [place] [address] October, [facility] [address] [id number] [address] [place] [phone] Oct, [facility] [address] [id number] [address] [place] [phone] Oct, [facility] [address] [id number] [address] [place] [phone] Oct, [facility] [address] [id number] [address] [place] [phone] Aug, [facility] [address] [id number] [address] [place] [address] Aug, [facility] [address] [id number] [address] [place] [phone] Aug, [facility] [address] [id number] [address] [place] [phone] Aug, [facility] [address] [id number] [address] [place] [phone] Aug, [facility] [address] [id number] [address] [place] [phone] Aug, [facility] [address] [id number] [address] [place] [phone] Aug, [facility] [address] [id number] [address] [place] [address], [place] [address] Aug, 2014 [facility] [address] [id number] [address] [place] [address], [place] [address] Aug, 2014 [facility] [address] [id number] [address] [place] [address], [place] [address] Aug, 2014 [facility] [address] [id number] [address] [place] [address], [place] [address] Aug, 2014 [facility] [address] [id number] [address] [place] [address], [place] [address] Aug, 2014 [facility] [address] [id number] [address] [place] [address], [place] [address] Aug, 2014 [facility] [address] [id number] [address] [place] [address], [place] [address] Aug, 2014 [facility] [address] [id number] [address] [place] [address], [place] [address] Aug, [facility] [address] [id number] [address] [place] [address], [place] [address] Jul, [facility] [address] [id number] [address] [place] [address], [place] [address] Jul, [facility] [address] [id number] [address] [place] [address], [place] [address] Jul, [facility] [address] [id number] [address] [place] [address], [place] [address] Jul, [facility] [address] [id number] [address] [place] [address], [place] [address] Jul, [facility] [address] [id number] [address] [place] [address], [place] [address] Jul, [facility] [address] [id number] [address] [place] [address], [place] [address] Jul, [facility] [address] [id number] [address] [place] [address], [place] [address] Jul, [facility] [address] [id number] [address] [place] [address], [place] [address] Jun, [facility] [address] [id number] [address] [place] [address], [place] [address] Jun, [facility] [address] [id number] [address] [place] [address], [place] [address] Jun, [facility] [address] [id number] [address] [place] [address], [place] [address] Jun, [facility] [address] [id number] [address] [place] [address], [place] [address] Jun, [facility] [address] [id number] [address] [place] [address], [place] [address] Jun, [facility] [address] [id number] [address] [place] [address], [place] [address] Jun, [facility] [address] [id number] [address] [place] [address], [place] [address] Jun, [facility] [address] [id number] [address] [place] [address], [place] [address] Jun, [facility] [address] [id number] [address] [place] [address], [place] [address] Jun, [facility] [address] [id number] [address] [place] [address], [place] [address] Jun, [facility] [address] [id number] [address] [place] [address], [place] [address] May, [facility] [address] [id number] [address] [place] [address], [place] [address] May, [facility] [address] [id number] [address] [place] [address], [place] [address] May, [facility] [address] [id number] [address] [place] [address], [place] [address] May, [facility] [address] [id number] [address] [place] [address], [place] [address] May, [facility] [address] [id number] [address] [place] [address], [place] [address] May, [facility] [address] [id number] [address] [place] [address], [place] [address] May, [facility] [address] [id number] [address] [place] [address], [place] [address] Apr, [facility] [address] [id number] [address] [place] [address], [place] [address] Apr, [facility] [address] [id number] [address] [place] [address], [place] [address] Apr, [facility] [address] [id number] [address] [place] [address], [place] [address] Apr, [facility] [address] [id number] [address] [place] [address], [place] [address] Apr, [facility] [address] [id number] [address] [place] [address], [place] [address] Apr, [facility] [address] [id number] [address] [place] [address], [place] [address] Mar, [facility] [address] [id number] [address] [place] [address], [place] [address] 29 Mar, 2014 [facility] [address] [id number] [address] [place] [address], [place] [address] Mar, [facility] [address] [id number] [address] [place] [address], [place] [address] Mar, [facility] [address] [id number] [address] [place] [address], [place] [address] Mar, [facility] [address] [id number] [address] [place] [address], [place] [address] Mar, [facility] [address] [id number] [address] [place] [address], [place] [address] Jan, [facility] [address] [id number] [address] [place] [address], [place] [address] Jan, [facility] [address] [id number] [address] [place] [address], [place] [address] Jan, [facility] [address] [id number] [address] [place] [address], [place] [address] Jan, [facility] [address] [id number] [address] [place] [address], [place] [address] Dec, [facility] [address] [id number] [address] [place] [address], [place] [address] Dec, [facility] [address] [id number] [address] [place] [address], [place] [address] Dec, [facility] [address] [id number] [address] [place] [address], [place] [address] Dec, [facility] [address] [id number] [address] [place] [address], [place] [address] Dec, [facility] [address] [id number] [address] [place] [address], [place] [address] Dec, [facility] [address] [id number] [address] [place] [address], [place] [address] Dec, [facility] [address] [id number] [address] [place] [address], [place] [address] Dec, [facility] [address] [id number] [address] [place] [address], [place] [address] Dec, [facility] [address] [id number] [address] [place] [address], [place] [address] Dec, [facility] [address] [id number] [address] [place] [address], [place] [address] Dec, [facility] [address] [id number] [address] [place] [address], [place] [address] Dec, [facility] [address] [id number] [address] [place] [address], [place] [address] October, [facility] [address] [id number] [address] [place] [address], [place] [address] October, [facility] [address] [id number] [address] [place] [address], [place] [address] October, [facility] [address] [id number] [address] [place] [address], [place] [address] October, [facility] [address] [id number] [address] [place] [address], [place] [address] October, [facility] [address] [id number] [address] [place] [address], [place] [address] October, [facility] [address] [id number] [address] [place] [address], [place] [address] Oct, [facility] [address] [id number] [address] [place] [address], [place] [address] Oct, [facility] [address] [id number] [address] [place] [address], [place] [address] Oct, [facility] [address] [id number] [address] [place] [address], [place] [address] Oct, [facility] [address] [id number] [address] [place] [address], [place] [address] Oct, [facility] [address] [id number] [address] [place] [address], [place] [address] Oct, [facility] [address] [id number] [address] [place] [address], [place] [address] Oct, [facility] [address] [id number] [address] [place] [address], [place] [address] Oct, [facility] [address] [id number] [address] [place] [address], [place] [address] Oct, [facility] [address] [id number] [address] [place] [address], [place] [address] Oct, [facility] [address] [id number] [facility] [place] [address] 08 Oct, 2013 [facility] [address] [id number] [facility] [place] [address] 08 Oct, 2013 [facility] [address] [id number] [facility] [place] [address] 15 Aug, 2013 [facility] [address] [id number] [address] [place] [address], [place] [address] 15 Aug, 2013 [facility] [address] [id number] [address] [place] [address], [place] [address] Aug, [facility] [address] [id number] [address] [place] [address], [place] [address] Aug, [facility] [address] [id number] [address] [place] [address], [place] [address] Aug, [facility] [address] [id number] [address] [place] [address], [place] [address] Aug, [facility] [address] [id number] [address] [place] [address], [place] [address] Aug, [facility] [address] [id number] [address] [place] [address], [place] [address] Aug, [facility] [address] [id number] [address] [place] [address], [place] [address] Aug, [facility] [address] [id number] [address] [place] [address], [place] [address] Aug, [facility] [address] [id number] [address] [place] [address], [place] [address] Aug, [facility] [address] [id number] [address] [place] [address], [place] [address] Aug, [facility] [address] [id number] [address] [place] [address], [place] [address] Aug, [facility] [address] [id number] [address] [place] [address], [place] [address] 20 Aug, 2013 [facility] [address] [id number] [address] [place] [address], [place] [address] 14 Aug, 2013 [facility] [address] [id number] [address] [place] [address], [place] [address] 14 Aug, 2013 [facility] [address] [id number] [address] [place] [address], [place] [address] 14 Aug, 2013 [facility] [address] [id number] [address] [place] [address], [place] [address] 14 Aug, 2013 [facility] [address] [id number] [address] [place] [address], [place] [address] 07 Aug, 2013 [facility] [address] [id number] [address] [place] [address], [place] [address] 07 Aug, 2013 [facility] [address] [id number] [address] [place] [address], [place] [address] 06 Aug, 2013 [facility] [address] [id number] [address] [place] [address], [place] [address] 06 Aug, 2013 [facility] [address] [id number] [address] [place] [address], [place] [address] 04 Aug, 2013 [facility] [address] [id number] [address] [place] [address], [place] [address] 04 Aug, 2013 [facility] [address] [id number] [address] [place] [address], [place] [address] Aug, [facility] [address] [id number] [address] [place] [address], [place] [address] Jul, [facility] [address] [id number] [address] [place] [address], [place] [address] Jul, [facility] [address] [id number] [address] [place] [address], [place] [address] Jul, [facility] [address] [id number] [address] [place] [address], [place] [address] Jul, [facility] [address] [id number] [address] [place] [address], [place] [address] Jul, [facility] [address] [id number] [address] [place] [address], [place] [address] Jul, [facility] [address] [id number] [address] [place] [address], [place] [address] Jul, [facility] [address] [id number] [address] [place] [address], [place] [address] Jul, [facility] [address] [id number] [address] [place] [address], [place] [address] Jul, [facility] [address] [id number] [address] [place] [address], [place] [address] Jul, [facility] [address] [id number] [address] [place] [address], [place] [address] Jul, [facility] [address] [id number] [address] [place] [address], [place] [address] Jul, [facility] [address] [id number] [address] [place] [address], [place] [address] Jul, [facility] [address] [id number] [address] [place] [address], [place] [address] Jul, [facility] [address] [id number] [address] [place] [address], [place] [address] Jul, [facility] [address] [id number] [address] [place] [address], [place] [address] Jul, [facility] [address] [id number] [address] [place] [address], [place] [address] Jul, [facility] [address] [id number] [address] [place] [address], [place] [address] Jul, [facility] [address] [id number] [address] [place] [address], [place] [address] Jul, [facility] [address] [id number] [address] [place] [address], [place] [address] Jul, [facility] [address] [id number] [address] [place] [address], [place] [address] Jun, [facility] [address] [id number] [address] [place] [address], [place] [address] Jun, [facility] [address] [id number] [address] [place] [address], [place] [address] Jun, [facility] [address] [id number] [address] [place] [address], [place] [address] Jun, [facility] [address] [id number] [address] [place] [address], [place] [address] Jun, [facility] [address] [id number] [address] [place] [address], [place] [address] Jun, [facility] [address] [id number] [address] [place] [address], [place] [address] Jun, [facility] [address] [id number] [address] [place] [address], [place] [address] Jun, [facility] [address] [id number] [address] [place] [address], [place] [address] Jun, [facility] [address] [id number] [address] [place] [address], [place] [address] Jun, [facility] [address] [id number] [address] [place] [address], [place] [address] Jun, [facility] [address] [id number] [address] [place] [address], [place] [address] Jun, [facility] [address] [id number] [address] [place] [address], [place] [address] Jun, [facility] [address] [id number] [address] [place] [address], [place] [address] Jun, [facility] [address] [id number] [address] [place] [address], [place] [address] Jun, [facility] [address] [id number] [address] [place] [address], [place] [address] 18 Jun, 2013 [facility] [address] [id number] [address] [place] [address], [place] [address] 18 Jun, 2013 [facility] [address] [id number] [address] [place] [address], [place] [address] 17 Jun, 2013 [facility] [address] [id number] [address] [place] [address], [place] [address] 17 Jun, 2013 [facility] [address] [id number] [address] [place] [address], [place] [address] 13 Jun, 2013 [facility] [address] [id number] [address] [place] [address], [place] [address] Jun, [facility] [address] [id number] [address] [place] [address], [place] [address] Jun, [facility] [address] [id number] [address] [place] [address], [place] [address] Jun, [facility] [address] [id number] [address] [place] [address], [place] [address] 05 Jun, 2013 [facility] [address] [id number] [address] [place] [address], [place] [address] 05 Jun, 2013 [facility] [address] [id number] [address] [place] [address], [place] [address] 04 Jun, 2013 [facility] [address] [id number] [address] [place] [address], [place] [address] 04 Jun, 2013 [facility] [address] [id number] [address] [place] [address], [place] [address] 17 May, 2013 [facility] [address] [id number] [address] [place] [address], [place] [address] 17 May, 2013 [facility] [address] [id number] [address] [place] [address], [place] [address] May, [facility] [address] [id number] [address] [place], [place] [address] [address] May, [facility] [address] [id number] [address] [place] [address], [place] [address] May, [facility] [address] [id number] [address] [place] [address], [place] [address] May, [facility] [address] [id number] [address] [place] [address], [place] [address] Apr, [facility] [address] [id number] [address] [place] [address], [place] [address] Apr, [facility] [address] [id number] [address] [place] [address], [place] [address] Apr, [facility] [address] [id number] [address] [place] [address], [place] [address] Apr, [facility] [address] [id number] [address] [place] [address], [place] [address] Apr, [facility] [address] [id number] [address] [place] [address], [place] [address] Apr, [facility] [address] [id number] [address] [place] [address], [place] [address] Apr, [facility] [address] [id number] [address] [place] [address] Apr, [facility] [address] [id number] [address] [place] [address] 26 Mar, 2012 [facility] [address] [id number] [address] [place] [address] 24 Sep, 2012 [facility] [address] [id number] [address] [place] [address], [place] [address] 17 Sep2012 [facility] [address] [id number] [address] [place] [address] 17 Sep, 2012 [facility] [address] [id number] [address] [place] [address], [place] [address] 11 Mar, 2013 [facility] [address] [id number] [facility] [place] [address] 10 Mar, 2013 [facility] [address] [id number] [address] [place] [address], [place] [address] 05 Mar, 2013 [facility] [address] [id number] [address] [place] [address], [place] [address] 04 Mar, 2013 [facility] [address] [id number] [address] [place] [address], [place] [address] 20 Jan, 2013 [facility] [address] [id number] [address] [place] [address], [place] [address] Jan, [facility] [address] [id number] [address] [place] [address], [place] [address] 14 Jan, 2013 [facility] [address] [id number] [address] [place] [address], [place] [address] Jan, [facility] [address] [id number] [address] [place] [address], [place] [address] Jan, [facility] [address] [id number] [address] [place] [address], [place] [address] Jan, [facility] [address] [id number] [address] [place] [address], [place] [address] Dec, [facility] [address] [id number] [address] [place] [address], [place] [address] Dec, [facility] [address] [id number] [address] [place] [address], [place] [address] Dec, [facility] [address] [id number] [address] [place] [address], [place] [address] Dec, [facility] [address] [id number] [address] [place] [address], [place] [address] 18 Dec, 2012 [facility] [address] [id number] [address] [place] [address], [place] [address] 17 Dec, 2012 [facility] [address] [id number] [address] [place] [address], [place] [address] 16 Dec, 2012 [facility] [address] [id number] [address] [place] [address], [place] [address] 16 Dec, 2012 [facility] [address] [id number] [address] [place] [address], [place] [address] 15 Dec, 2012 [facility] [address] [id number] [address] [place] [address], [place] [address] 10 Dec, 2012 [facility] [address] [id number] [address] [place] [address], [place] [address] Dec, [facility] [address] [id number] [address] [place] [address], [place] [address] Dec, [facility] [address] [id number] [address] [place] [address], [place] [address] Dec, [facility] [address] [id number] [address] [place] [address], [place] [address] Dec, [facility] [address] [id number] [address] [place] [address], [place] [address] Dec, [facility] [address] [id number] [address] [place] [address], [place] [address] Dec, [facility] [address] [id number] [address] [place] [address], [place] [address] October, [facility] [address] [id number] [address] [place] [address], [place] [address] October, [facility] [address] [id number] [address] [place] [address], [place] [address] October, [facility] [address] [id number] [address] [place] [address], [place] [address] October, [facility] [address] [id number] [address] [place] [address], [place] [address] October, [facility] [address] [id number] [address] [place] [address], [place] [address] October, [facility] [address] [id number] [address] [place] [address], [place] [address] October, [facility] [address] [id number] [address] [place] [address], [place] [address] Oct, [facility] [address] [id number] [address] [place] [address], [place] [address] Oct, [facility] [address] [id number] [address] [place] [address], [place] [address] Oct, [facility] [address] [id number] [address] [place] [address], [place] [address] Oct, [facility] [address] [id number] [address] [place] [address], [place] [address] Oct, [facility] [address] [id number] [address] [place] [address], [place] [address] Oct, [facility] [address] [id number] [address] [place] [address], [place] [address] Oct, [facility] [address] [id number] [address] [place] [address], [place] [address] 15 Oct, 2012 [facility] [address] [id number] [address] [place] [address], [place] [address] Oct, [facility] [address] [id number] [address] [place] [address], [place] [address] Oct, [facility] [address] [id number] [address] [place] [address], [place] [address] Oct, [facility] [address] [id number] [address] [place] [address], [place] [address] Oct, [facility] [address] [id number] [address] [place] [address], [place] [address] Aug, [facility] [address] [id number] [address] [place] [address], [place] [address] Aug, [facility] [address] [id number] [address] [place] [address], [place] [address] Aug, [facility] [address] [id number] [address] [place] [address], [place] [address] 06 Aug, 2012 [facility] [address] [id number] [address] [place] [address], [place] [address] 05 Aug, 2012 [facility] [address] [id number] [address] [place] [address], [place] [address] 05 Aug, 2012 [facility] [address] [id number] [address] [place] [address], [place] [address] 20 Aug, 2012 [facility] [address] [id number] [address] [place] [address], [place] [address] 14 Aug, 2012 [facility] [address] [id number] [address] [place] [address], [place] [address] 12 Aug, 2012 [facility] [address] [id number] [address] [place] [address], [place] [address] Aug, [facility] [address] [id number] [address] [place] [address], [place] [address] 29 Jul, 2012 [facility] [address] [id number] [address] [place] [address], [place] [address] 15 Jul, 2012 [facility] [address] [id number] [address] [place] [address], [place] [address] 08 Jul, 2012 [facility] [address] [id number] [address] [place] [address], [place] [address] 20 Jun, 2012 [facility] [address] [id number] [address] [place] [address], [place] [address] 18 Jun, 2012 [facility] [address] [id number] [address] [place] [address], [place] [address] 18 Jun, 2012 [facility] [address] [id number] [address] [place] [address], [place] [address] 18 Jun, 2012 [facility] [address] [id number] [address] [place] [address], [place] [address] 18 Jun, 2012 [facility] [address] [id number] [address] [place], [place] [address] [address] 14 Jun, 2012 [facility] [address] [id number] [address] [place] [address], [place] [address] 14 Jun, 2012 [facility] [address] [id number] [address] [place] [address], [place] [address] 13 Jun, 2012 [facility] [address] [id number] [address] [place] [address], [place] [address] 13 Jun, 2012 [facility] [address] [id number] [address] [place] [address], [place] [address] 11 Jun, 2012 [facility] [address] [id number] [address] [place] [address], [place] [address] 11 Jun, 2012 [facility] [address] [id number] [address] [place] [address], [place] [address] 11 Jun, 2012 [facility] [address] [id number] [address] [place] [address], [place] [address] Jun, [facility] [address] [id number] [address] [place] [address], [place] [address] 07 Jun, 2012 [facility] [address] [id number] [address] [place] [address], [place] [address] 07 Jun, 2012 [facility] [address] [id number] [address] [place] [address], [place] [address] 06 Jun, 2012 [facility] [address] [id number] [address] [place] [address], [place] [address] Jun, [facility] [address] [id number] [address] [place] [address], [place] [address] Jun, [facility] [address] [id number] [address] [place] [address], [place] [address] Jun, [facility] [address] [id number] [address] [place] [address], [place] [address] 05 Jun, 2012 [facility] [address] [id number] [address] [place] [address], [place] [address] 05 Jun, 2012 [facility] [address] [id number] [address] [place] [address], [place] [address] Jun, [facility] [address] [id number] [address] [place] [address], [place] [address] Jun, [facility] [address] [id number] [address] [place] [address], [place] [address] May, [facility] [address] [id number] [address] [place] [address], [place] [address] May, [facility] [address] [id number] [address] [place] [address], [place] [address] May, [facility] [address] [id number] [address] [place] [address], [place] [address] May, [facility] [address] [id number] [address] [place] [address], [place] [address] May, [facility] [address] [id number] [address] [place] [address], [place] [address] May, [facility] [address] [id number] [address] [place] [address], [place] [address] May, [facility] [address] [id number] [address] [place] [address], [place] [address] May, [facility] [address] [id number] [address] [place] [address], [place] [address] Apr, [facility] [address] [id number] [address] [place] [address], [place] [address] 30 Apr, 2012 [facility] [address] [id number] [address] [place] [address], [place] [address] 29 Apr, 2012 [facility] [address] [id number] [address] [place] [address], [place] [address] Apr, [facility] [address] [id number] [address] [place] [address], [place] [address] Apr, [facility] [address] [id number] [address] [place] [address] Apr, [facility] [address] [id number] [address] [place] [address], [place] [address] Apr, [facility] [address] [id number] [address] [place] [address], [place] [address] Apr, [facility] [facility] [address] [id number] [address] [place] [address], [place] [address] Apr, [facility] [address] [id number] [address] [place] [address], [place] [address] Apr, [facility] [address] [id number] [address] [place] [address], [place] [address] Apr, [facility] [address] [id number] [address] [place] [address], [place] [address] Apr, [facility] [address] [id number] [address] [place] [address], [place] [address] Mar, [facility] [address] [id number] [address] [place] [address], [place] [address] 18 Mar, 2012 [facility] [address] [id number] [address] [place] [address], [place] [address] Mar, [facility] [address] [id number] [address] [place] [phone] Mar, [facility] [address] [id number] [address] [place] [id number] Mar, [facility] [address] [id number] [address] [place] [address] [id number] Mar, [facility] [address] [id number] [address] [place] [id number] Mar, [facility] [address] [id number] [address] [place] [phone] Jan, [facility] [address] [id number] [address] [place] [phone] Jan, [facility] [address] [id number] [address] [place] [id number] Jan, [facility] [address] [id number] [address] [place] [address], [place] [id number] Jan, [facility] [address] [id number] [address] [place] [address], [place] [address] Jan, [facility] [address] [id number] [address] [place] [address], [place] [address] Jan, [facility] [address] [id number] [address] [place] [address], [place] [address] Jan, [facility] [address] [id number] [address] [place] [address], [place] [address] Jan, [facility] [address] [id number] [address] [place] [address], [place] [address] Jan, [facility] [address] [id number] [address] [place] [address], [place] [address] Jan, [facility] [address] [id number] [address] [place] [address], [place] [address] Jan, [facility] [address] [id number] [address] [place] [address], [place] [address] Dec, [facility] [address] [id number] [address] [place] [address], [place] [address] Dec, [facility] [address] [id number] [address] [place] [address], [place] [address] Dec, [facility] [address] [id number] [address] [place] [address], [place] [address] Dec, [facility] [address] [id number] [address] [place] [address], [place] [address] Dec, [facility] [address] [id number] [address] [place] [address], [place] [address] Dec, [facility] [address] [id number] [address] [place] [address], [place] [address] Dec, [facility] [address] [id number] [facility] [place] [address] 17 Jan, 2012 [facility] [address] [id number] [address] [place] [address], [place] [address] 16 Jan, 2012 [facility] [address] [id number] [address] [place] [address], [place] [address] 13 Jan, 2012 [facility] [address] [id number] [address] [place] [address], [place] [address] 13 Jan, 2012 [facility] [address] [id number] [address] [place] [address], [place] [address] Dec, [facility] [address] [id number] [address] [place] [address], [place] [address] Dec, [facility] [address] [id number] [address] [place] [address], [place] [address] Dec, [facility] [address] [id number] [address] [place] [address], [place] [address] Dec, [facility] [address] [id number] [address] [place] [address], [place] [address] Dec, [facility] [address] [id number] [address] [place] [address], [place] [address] 15 Dec, 2011 [facility] [address] [id number] [address] [place] [address], [place] [address] 06 Dec, 2011 [facility] [address] [id number] [address] [place] [address], [place] [address] 05 Dec, 2011 [facility] [address] [id number] [address] [place] [address], [place] [address] October, [facility] [address] [id number] [address] [place] [address], [place] [address] October, [facility] [address] [id number] [address] [place] [address], [place] [address] October, [facility] [address] [id number] [address] [place] [address], [place] [address] October, [facility] [address] [id number] [address] [place] [address], [place] [address] October, [facility] [address] [id number] [address] [place] [address], [place] [address] October, [facility] [address] [id number] [address] [place] [address], [place] [address] Oct, [facility] [address] [id number] [address] [place] [address], [place] [address] Oct, [facility] [address] [id number] [address] [place] [address], [place] [address] Oct, [facility] [address] [id number] [address] [place] [address], [place] [address] Oct, [facility] [address] [id number] [address] [place] [address], [place] [address] Oct, [facility] [address] [id number] [address] [place] [address], [place] [address] Oct, [facility] [address] [id number] [address] [place] [address], [place] [address] Oct, [facility] [address] [id number] [address] [place] [address], [place] [address] Aug, [facility] [address] [id number] [address] [place] [address], [place] [address] Aug, [facility] [address] [id number] [address] [place] [address], [place] [address] Aug, [facility] [address] [id number] [address] [place] [address], [place] [address] Aug, [facility] [address] [id number] [address] [place] [address], [place] [address] Aug, [facility] [address] [id number] [address] [place] [address], [place] [address] Aug, [facility] [address] [id number] [address] [place] [address], [place] [address] Aug, [facility] [address] [id number] [address] [place] [address], [place] [address] Aug, [facility] [address] [id number] [address] [place] [address], [place] [address] 08 Aug, 2011 [facility] [address] [id number] [address] [place] [address], [place] [address] Jul, [facility] [address] [id number] [address] [place] [address], [place] [address] Jul, [facility] [address] [id number] [address] [place] [address], [place] [address] Jul, [facility] [address] [id number] [address] [place] [address], [place] [address] Jul, [facility] [address] [id number] [address] [place] [address], [place] [address] Jun, [facility] [address] [id number] [address] [place] [address], [place] [address] Jun, [facility] [address] [id number] [address] [place] [address], [place] [address] May, [facility] [address] [id number] [address] [place] [address], [place] [address] May, [facility] [address] [id number] [address] [place] [address], [place] [address] May, [facility] [address] [id number] [address] [place] [address], [place] [address] May, [facility] [address] [id number] [address] [place] [address], [place] [address] May, [facility] [address] [id number] [address] [place] [address], [place] [address] 28 Apr, 2011 [facility] [address] [id number] [address] [place] [address], [place] [address] Apr, [facility] [address] [id number] [address] [place] [phone] 10 Apr, 2011 [facility] [address] [id number] [address] [place] [id number] Jan, [facility] [address] [id number] [address] [place] [phone] Dec, [facility] [address] [id number] [address] [place] [phone] October, [facility] [address] [id number] [address] [place] [phone] Jun, [facility] [address] [id number] [address] [place] [phone] Apr, [facility] [address] [id number] [address] [place] [phone] Apr, [facility] [address] [id number] [address] [place] [phone] Apr, [facility] [address] [id number] [address] [place] [phone] Jun, IMMUNIZATIONS No Known Immunizations SOCIAL HISTORY Never Assessed REASON FOR VISIT PLAN OF CARE VITAL SIGNS Height 69 in 2011-12-19 Weight 142 lbs 2011-12-19 Heart Rate 72 bpm 2011-12-19 Respiratory Rate 18 2011-12-19 Blood pressure systolic 110 mmHg 2011-12-19 Blood pressure diastolic 76 mmHg 2011-12-19 MEDICATIONS Unknown Medications RESULTS No Results PROCEDURES Procedure Date Ordered Result Body Site DRUG SCREEN, QUALITATE/MULTI December 19, 2011 INSTRUCTIONS MEDICATIONS ADMINISTERED No Known Medications MEDICAL (GENERAL) HISTORY Type Description Date Medical History Psychiatric disorder Medical History Hard of hearing Surgical History Neofibrous tumor Surgical History back injection Surgical History SCS inserted 02/22/16 Hospitalization History Intestinal blockage Hospitalization History past psychiatric hospitalizations x2 Hospitalization History [facility]
--- OUTSIDE RECORDS SUMMARY | 2020-01-25 13:30 | XMS REPORT ---
Author Author Moreno Ana Doctor Organization [facility] Address Unknown Phone Unavailable Care Team Providers Care Registered Dental Assistant Name Role Phone Migration, Doctor Unavailable Unavailable PROBLEMS Type Condition ICD9-CM Code ANL84-OC Code Onset Dates Condition S tatus SNOMED Code Problem Chronic hepatitis C without hepatic coma B18.2 Active 689212500 Problem Cannabis abuse F12.10 Active 20178 009 Problem Bipolar 1 disorder F31.9 Active 3 34779633 Problem Attention deficit hyperactivity disorder (ADHD), combi luciano type F90.2 Active 71904689 Problem Attention deficit R41.840 Active 76 157631 Problem Hot flashes due to menopause N95.1 A ctive 793399911 Problem H/O laminectomy Z98.89 Active 1616 12236 Problem Other chronic pain G89.29 Active 8 1062546 Problem Anxiety disorder, unspecified type F41.9 Active 340437905 Problem Bipolar disorder, in partial remission, most rec ent episode hypomanic F31.71 Active [id number] ALLERGIES No Information ENCOUNTERS Encounter Location Date Diagnosis [facility] [address] [id number] [address] [place] [id number] Oct, [facility] [address] [facility] [id number] [address] [place] [phone] Oct, [facility] [address] [facility] [id number] [address] [place] [phone] Aug, [facility] [address] [facility] [id number] [address] [place] [phone] Jul, [facility] [address] [facility] [id number] [address] [place] [phone] Jul, [facility] [address] [facility] [id number] [address] [place] [phone] Apr, [facility] [address] [facility] [id number] [address] [place] [phone] Mar, Hot flashes due to menopause N95.1 ; Anxiety disorder, unspecified type F41.9 ; Low back pain M54.5 and Encounter for immunization Z23 [facility] [address] [facility] [id number] [address] [place] [phone] Dec, Other chronic pain G89.29 an d Low back pain M54.5 [facility] [address] [facility] [id number] [address] [place] [phone] October, [facility] [address] [facility] [id number] [address] [place] [phone] October, [facility] [address] [facility] [id number] [address] [place] [phone] October, [facility] [address] [facility] [id number] [address] [place] [phone] October, Other chronic pain G89.29 an d Chronic hepatitis C without hepatic coma B18.2 [facility] [address] [facility] [id number] [address] [place] [phone] Aug, Bipolar disorder, in partial remission, most recent episode hypomanic F31.71 ; Attention deficit hyperactivity disorder (ADHD), combined type F90.2 and Anxiety disorder, unspecified type F41.9 [facility] [address] [facility] [id number] [address] [place] [phone] Aug, [facility] [address] [facility] [id number] [address] [place] [phone] Aug, Bipolar disorder, in partial remission, most recent episode hypomanic F31.71 [facility] [address] [facility] [id number] [address] [place] [phone] Aug, [facility] [address] [facility] [id number] [address] [place] [phone] Aug, Bipolar disorder, in partial remission, most recent episode hypomanic F31.71 [facility] [address] [facility] [id number] [address] [place] [phone] Aug, Bipolar disorder, in partial remission, most recent episode hypomanic F31.71 ; Attention deficit hyperactivity disorder (ADHD), combined type F90.2 and Anxiety disorder, unspecified type F41.9 [facility] [address] [id number] [address] [place] [phone] Aug, Low back pain M54.5 and Pain in left wrist M25.532 [facility] [address] [id number] [address] [place] [phone] Aug, [facility] [address] [id number] [address] [place] [phone] Jun, [facility] [address] [id number] [address] [place] [phone] Apr, Bipolar disorder, in partial remission, most recent episode hypomanic F31.71 [facility] [address] [id number] [address] [place] [phone] Apr, [facility] [address] [id number] [address] [place] [phone] Apr, Bipolar disorder, in partial remission, most recent episode hypomanic F31.71 ; Attention deficit hyperactivity disorder (ADHD), combined type F90.2 ; Anxiety disorder, unspecified type F41.9 and Other roasterman (current) drug therapy Z79.899 [facility] [address] [id number] [address] [place] [phone] Apr, Bipolar disorder, in partial remission, most recent episode hypomanic F31.71 [facility] [address] [id number] [address] [place] [phone] Apr, Bipolar disorder, in partial remission, most recent episode hypomanic F31.71 [facility] [address] [id number] [address] [place] [phone] Mar, [facility] [address] [id number] [address] [place] [phone] Mar, Bipolar disorder, in partial remission, most recent episode hypomanic F31.71 ; Encounter for immunization Z23 and Low back pain M54.5 [facility] [address] [id number] [address] [place] [phone] Mar, Bipolar disorder, in partial remission, most recent episode hypomanic F31.71 [facility] [address] [id number] [address] [place] [phone] Mar, Bipolar disorder, in partial remission, most recent episode hypomanic F31.71 [facility] [address] [id number] [address] [place] [phone] Jan, Bipolar disorder, in partial remission, most recent episode hypomanic F31.71 [facility] [address] [id number] [address] [place] [phone] Jan, Bipolar disorder, in partial remission, most recent episode hypomanic F31.71 [facility] [address] [facility] [id number] [address] [place] [phone] Dec, Bipolar disorder, in partial remission, most recent episode hypomanic F31.71 [facility] [address] [id number] [address] [place] [phone] Dec, Bipolar disorder, in partial remission, most recent episode hypomanic F31.71 ; Attention deficit hyperactivity disorder (ADHD), combined type F90.2 ; Anxiety disorder, unspecified type F41.9 and Other correction (current) drug therapy Z79.899 [facility] [address] [id number] [address] [place] [phone] Dec, Bipolar disorder, in partial remission, most recent episode hypomanic F31.71 [facility] [address] [id number] [address] [place] [phone] Dec, Bipolar disorder, in partial remission, most recent episode hypomanic F31.71 [facility] [address] [id number] [address] [place] [phone] October, Bipolar disorder, in partial remission, most recent episode hypomanic F31.71 [facility] [address] [id number] [address] [place] [phone] October, [facility] [address] [id number] [address] [place] [phone] October, [facility] [address] [id number] [address] [place] [phone] Oct, Bipolar disorder, in partial remission, most recent episode hypomanic F31.71 ; Attention deficit hyperactivity disorder (ADHD), combined type F90.2 ; Anxiety disorder, unspecified type F41.9 and Encounter for drug screening Z02.83 [facility] [address] [id number] [address] [place] [phone] Oct, Bipolar disorder, in partial remission, most recent episode hypomanic F31.71 [facility] [address] [facility] [id number] [address] [place] [phone] Oct, Bipolar disorder, in partial remission, most recent episode hypomanic F31.71 [facility] [address] [facility] [id number] [address] [place] [phone] Aug, Bipolar disorder, in partial remission, most recent episode hypomanic F31.71 [facility] [address] [facility] [id number] [address] [place] [phone] Aug, Bipolar disorder, in partial remission, most recent episode hypomanic F31.71 [facility] [address] [facility] [id number] [address] [place] [phone] Aug, Bipolar disorder, in partial remission, most recent episode hypomanic F31.71 [facility] [address] [id number] [address] [place] [phone] Jul, Bipolar disorder, in partial remission, most recent episode hypomanic F31.71 ; Attention deficit hyperactivity disorder (ADHD), combined type F90.2 and Anxiety disorder, unspecified type F41.9 [facility] [address] [id number] [address] [place] [phone] Jul, Bipolar disorder, in partial remission, most recent episode hypomanic F31.71 [facility] [address] [id number] [address] [place] [phone] Jun, Bipolar disorder, in partial remission, most recent episode hypomanic F31.71 [facility] [address] [id number] [address] [place] [phone] May, Bipolar disorder, in partial remission, most recent episode hypomanic F31.71 [facility] [address] [id number] [address] [place] [phone] May, Bipolar disorder, in partial remission, most recent episode hypomanic F31.71 [facility] [address] [id number] [address] [place] [phone] Apr, [facility] [address] [facility] [id number] [address] [place] [phone] Apr, Bipolar disorder, in partial remission, most recent episode hypomanic F31.71 ; Attention deficit hyperactivity disorder (ADHD), combined type F90.2 ; Anxiety disorder, unspecified type F41.9 and Cannabis abuse F12.10 [facility] [address] [id number] [address] [place] [phone] Apr, Attention deficit hyperactiv ity disorder (ADHD), combined type F90.2 [facility] [address] [facility] [id number] [address] [place] [phone] Mar, Attention deficit hyperactiv ity disorder (ADHD), combined type F90.2 [facility] [address] [facility] [id number] [address] [place] [phone] 14 Mar, 2017 Anxiety disorder, unspecifie d type F41.9 [facility] [address] [facility] [id number] [address] [place] [phone] 18 Jan, 2017 Attention deficit hyperactiv ity disorder (ADHD), combined type F90.2 [facility] [address] [facility] [id number] [address] [place] [phone] 16 Jan, 2017 Anxiety disorder, unspecifie d type F41.9 [place] [id number] [facility] [id number] [address] [place] [phone] Jan, Other chronic pain G89.29 ; Chronic hepatitis C without hepatic coma B18.2 and Bipolar 1 disorder F31.9 [facility] [address] [facility] [id number] [address] [place] [phone] Dec, Attention deficit hyperactiv ity disorder (ADHD), combined type F90.2 [facility] [address] [facility] [id number] [address] [place] [phone] Dec, Bipolar disorder, in partial remission, most recent episode hypomanic F31.71 ; Attention deficit hyperactivity disorder (ADHD), combined type F90.2 and Anxiety disorder, unspecified type F41.9 [place] [address] [facility] [id number] [address] [place] [phone] Dec, Bipolar disorder, in partial remission, most recent episode hypomanic F31.71 ; Attention deficit hyperactivity disorder (ADHD), combined type F90.2 and Anxiety disorder, unspecified type F41.9 [facility] [address] [place] [id number] [address] [place] [phone] Dec, Bipolar 1 disorder F31.9 and Attention deficit R41.840 [place] [address] [place] [id number] [address] [place] [phone] Oct, Other chronic pain G89.29 ; Alopecia L65.9 and Screening, lipid Z13.220 [place] [address] [facility] [id number] [address] [place] [phone] Oct, [place] [address] [place] [id number] [address] [place] [phone] Aug, [place] [address] [place] [id number] [address] [place] [phone] Aug, Eustachian tube dysfunction, right H69.81 ; Vertigo R42 and Other chronic pain G89.29 [place] [address] [place] [id number] [address] [place] [phone] Aug, [facility] [address] [id number] [address] [place] [phone] Jun, [facility] [address] [id number] [address] [place] [phone] Jun, Low back pain M54.5 and Othe r chronic pain G89.29 [facility] [address] [id number] [address] [place] [phone] Jun, [facility] [address] [id number] [address] [place] [phone] May, [facility] [address] [id number] [address] [place] [phone] Jan, [facility] [address] [id number] [address] [place] [phone] Dec, [facility] [address] [id number] [address] [place] [phone] Dec, [facility] [address] [id number] [address] [place] [phone] Jun, [facility] [address] [id number] [address] [place] [phone] Apr, Eustachian tube dysfunction, unspecified laterality H69.80 ; Hot flashes N95.1 and Encounter for immunization Z23 [facility] [address] [id number] [address] [place] [phone] Jan, [facility] [address] [id number] [address] [place] [phone] Jan, [facility] [address] [id number] [address] [place] [phone] Jan, [facility] [address] [facility] [id number] [address] [place] [phone] Jan, [facility] [address] [id number] [address] [place] [phone] Jan, Encounter to establish care V65.8 ; Bipolar 1 disorder 296.7 ; Abdominal pain 789.00 ; Constipation 564.00 ; Hard of hearing 389.9 and Drug abuse 305.90 [facility] [address] [id number] [address] [place] [phone] Dec, [facility] [address] [facility] [id number] [address] [place] [phone] October, [facility] [address] [id number] [address] [place] [phone] October, [facility] [address] [id number] [address] [place] [phone] Oct, [facility] [address] [id number] [address] [place] [phone] Oct, [facility] [address] [facility] [id number] [address] [place] [phone] Oct, [facility] [address] [id number] [address] [place] [phone] Aug, [facility] [address] [id number] [address] [place] [phone] Aug, [facility] [address] [facility] [id number] [address] [place] [phone] Aug, [facility] [address] [id number] [address] [place] [phone] Aug, [facility] [address] [id number] [address] [place] [phone] Aug, [facility] [address] [id number] [address] [place] [phone] Aug, [facility] [address] [id number] [address] [place] [phone] Aug, [facility] [address] [id number] [address] [place] [phone] Aug, [facility] [address] [id number] [address] [place] [address], [place] [address] Aug, 2014 [facility] [address] [id number] [address] [place] [address], [place] [address] Aug, 2014 [facility] [address] [id number] [address] [place] [address], [place] [address] Aug, 2014 [facility] [address] [id number] [address] [place] [address], [place] [address] Aug, 2014 [facility] [address] [id number] [address] [place] [address], [place] [address] Aug, 2014 [facility] [address] [id number] [address] [place] [address], [place] [address] Aug, 2014 [facility] [address] [id number] [address] [place] [address], [place] [address] Aug, [facility] [address] [id number] [address] [place] [address], [place] [address] Jul, [facility] [address] [id number] [address] [place] [address], [place] [address] Jul, [facility] [address] [id number] [address] [place] [address], [place] [address] Jul, [facility] [address] [id number] [address] [place] [address], [place] [address] Jul, [facility] [address] [id number] [address] [place] [address], [place] [address] Jul, [facility] [address] [id number] [address] [place] [address], [place] [address] Jul, [facility] [address] [id number] [address] [place] [address], [place] [address] Jul, [facility] [address] [id number] [address] [place] [address], [place] [address] Jul, [facility] [address] [id number] [address] [place] [address], [place] [address] Jun, [facility] [address] [id number] [address] [place] [address], [place] [address] Jun, [facility] [address] [id number] [address] [place] [address], [place] [address] Jun, [facility] [address] [id number] [address] [place] [address], [place] [address] Jun, [facility] [address] [id number] [address] [place] [address], [place] [address] Jun, [facility] [address] [id number] [address] [place] [address], [place] [address] Jun, [facility] [address] [id number] [address] [place] [address], [place] [address] Jun, [facility] [address] [id number] [address] [place] [address], [place] [address] Jun, [facility] [address] [id number] [address] [place] [address], [place] [address] Jun, [facility] [address] [id number] [address] [place] [address], [place] [address] Jun, [facility] [address] [id number] [address] [place] [address], [place] [address] Jun, [facility] [address] [id number] [address] [place] [address], [place] [address] May, [facility] [address] [id number] [address] [place] [address], [place] [address] May, [facility] [address] [id number] [address] [place] [address], [place] [address] May, [facility] [address] [id number] [address] [place] [address], [place] [address] May, [facility] [address] [id number] [address] [place] [address], [place] [address] May, [facility] [address] [id number] [address] [place] [address], [place] [address] May, [facility] [address] [id number] [address] [place] [address], [place] [address] May, [facility] [address] [id number] [address] [place] [address], [place] [address] Apr, [facility] [address] [id number] [address] [place] [address], [place] [address] Apr, [facility] [address] [id number] [address] [place] [address], [place] [address] Apr, [facility] [address] [id number] [address] [place] [address], [place] [address] Apr, [facility] [address] [id number] [address] [place] [address], [place] [address] Apr, [facility] [address] [id number] [address] [place] [address], [place] [address] Apr, [facility] [address] [id number] [address] [place] [address], [place] [address] Mar, [facility] [address] [id number] [address] [place] [address], [place] [address] Mar, [facility] [address] [id number] [address] [place] [address], [place] [address] Mar, [facility] [address] [id number] [address] [place] [address], [place] [address] Mar, [facility] [address] [id number] [address] [place] [address], [place] [address] Mar, [facility] [address] [id number] [address] [place] [address], [place] [address] Mar, [facility] [address] [id number] [address] [place] [address], [place] [address] Jan, [facility] [address] [id number] [address] [place] [address], [place] [address] Jan, [facility] [address] [id number] [address] [place] [address], [place] [address] Jan, [facility] [address] [id number] [address] [place] [address], [place] [address] Jan, [facility] [address] [id number] [address] [place] [address], [place] [address] Dec, [facility] [address] [id number] [address] [place] [address], [place] [address] Dec, [facility] [address] [id number] [address] [place] [address], [place] [address] Dec, [facility] [address] [id number] [address] [place] [address], [place] [address] Dec, [facility] [address] [id number] [address] [place] [address], [place] [address] Dec, [facility] [address] [address] [id number] [address] [place] [address], [place] [address] Dec, [facility] [address] [id number] [address] [place] [address], [place] [address] Dec, [facility] [address] [id number] [address] [place] [address], [place] [address] Dec, [facility] [address] [id number] [address] [place] [address], [place] [address] Dec, [facility] [address] [id number] [address] [place] [address], [place] [address] Dec, [facility] [address] [id number] [address] [place] [address], [place] [address] Dec, [facility] [address] [id number] [address] [place] [address], [place] [address] Dec, [facility] [address] [id number] [address] [place] [address], [place] [address] October, [facility] [address] [id number] [address] [place] [address], [place] [address] October, [facility] [address] [id number] [address] [place] [address], [place] [address] October, [facility] [address] [id number] [address] [place] [address], [place] [address] October, [facility] [address] [id number] [address] [place] [address], [place] [address] October, [facility] [address] [id number] [address] [place] [address], [place] [address] October, [facility] [address] [id number] [address] [place] [address], [place] [address] Oct, [facility] [address] [id number] [address] [place] [address], [place] [address] Oct, [facility] [address] [id number] [address] [place] [address], [place] [address] Oct, [facility] [address] [id number] [address] [place] [address], [place] [address] Oct, [facility] [address] [id number] [address] [place] [address], [place] [address] Oct, [facility] [address] [id number] [address] [place] [address], [place] [address] Oct, [facility] [address] [id number] [address] [place] [address], [place] [address] Oct, [facility] [address] [id number] [address] [place] [address], [place] [address] Oct, [facility] [address] [id number] [address] [place] [address], [place] [address] Oct, [facility] [address] [id number] [address] [place] [address], [place] [address] Oct, [facility] [address] [id number] [address] [place] [address], [place] [address] Oct, [facility] [address] [id number] [facility] [place] [address] 08 Oct, 2013 [facility] [address] [id number] [facility] [place] [address] 15 Aug, 2013 [facility] [address] [id number] [facility] [place] [address] 15 Aug, 2013 [facility] [address] [id number] [address] [place] [address], [place] [address] Aug, [facility] [address] [id number] [address] [place] [address], [place] [address] Aug, [facility] [address] [id number] [address] [place] [address], [place] [address] Aug, [facility] [address] [id number] [address] [place] [address], [place] [address] Aug, [facility] [address] [id number] [address] [place] [address], [place] [address] Aug, [facility] [address] [id number] [address] [place] [address], [place] [address] Aug, [facility] [address] [id number] [address] [place] [address], [place] [address] Aug, [facility] [address] [id number] [address] [place] [address], [place] [address] Aug, [facility] [address] [id number] [address] [place] [address], [place] [address] Aug, [facility] [address] [id number] [address] [place] [address], [place] [address] Aug, [facility] [address] [id number] [address] [place] [address], [place] [address] Aug, [facility] [address] [id number] [address] [place] [address], [place] [address] Aug, [facility] [address] [id number] [address] [place] [address], [place] [address] 14 Aug, 2013 [facility] [address] [id number] [address] [place] [address], [place] [address] 14 Aug, 2013 [facility] [address] [id number] [address] [place] [address], [place] [address] 14 Aug, 2013 [facility] [address] [id number] [address] [place] [address], [place] [address] 14 Aug, 2013 [facility] [address] [id number] [address] [place] [address], [place] [address] 07 Aug, 2013 [facility] [address] [id number] [address] [place] [address], [place] [address] 07 Aug, 2013 [facility] [address] [id number] [address] [place] [address], [place] [address] 06 Aug, 2013 [facility] [address] [id number] [address] [place] [address], [place] [address] 06 Aug, 2013 [facility] [address] [id number] [address] [place] [address], [place] [address] 04 Aug, 2013 [facility] [address] [id number] [address] [place] [address], [place] [address] 04 Aug, 2013 [facility] [address] [id number] [address] [place] [address], [place] [address] Aug, [facility] [address] [id number] [address] [place] [address], [place] [address] Jul, [facility] [address] [id number] [address] [place] [address], [place] [address] Jul, [facility] [address] [id number] [address] [place] [address], [place] [address] Jul, [facility] [address] [id number] [address] [place] [address], [place] [address] Jul, [facility] [address] [id number] [address] [place] [address], [place] [address] Jul, [facility] [address] [id number] [address] [place] [address], [place] [address] Jul, [facility] [address] [id number] [address] [place] [address], [place] [address] Jul, [facility] [address] [id number] [address] [place] [address], [place] [address] Jul, [facility] [address] [id number] [address] [place] [address], [place] [address] Jul, [facility] [address] [id number] [address] [place] [address], [place] [address] Jul, [facility] [address] [id number] [address] [place] [address], [place] [address] Jul, [facility] [address] [id number] [address] [place] [address], [place] [address] Jul, [facility] [address] [id number] [address] [place] [address], [place] [address] Jul, [facility] [address] [id number] [address] [place] [address], [place] [address] Jul, [facility] [address] [id number] [address] [place] [address], [place] [address] Jul, [facility] [address] [id number] [address] [place] [address], [place] [address] Jul, [facility] [address] [id number] [address] [place] [address], [place] [address] Jul, [facility] [address] [id number] [address] [place] [address], [place] [address] Jul, [facility] [address] [id number] [address] [place] [address], [place] [address] Jul, [facility] [address] [id number] [address] [place] [address], [place] [address] Jul, [facility] [address] [id number] [address] [place] [address], [place] [address] 31 Jun, 2013 [facility] [address] [id number] [address] [place] [address], [place] [address] 31 Jun, 2013 [facility] [address] [id number] [address] [place] [address], [place] [address] Jun, [facility] [address] [id number] [address] [place] [address], [place] [address] Jun, [facility] [address] [id number] [address] [place] [address], [place] [address] Jun, [facility] [address] [id number] [address] [place] [address], [place] [address] Jun, [facility] [address] [id number] [address] [place] [address], [place] [address] Jun, [facility] [address] [id number] [address] [place] [address], [place] [address] Jun, [facility] [address] [id number] [address] [place] [address], [place] [address] Jun, [facility] [address] [id number] [address] [place] [address], [place] [address] Jun, [facility] [address] [id number] [address] [place] [address], [place] [address] Jun, [facility] [address] [id number] [address] [place] [address], [place] [address] Jun, [facility] [address] [id number] [address] [place] [address], [place] [address] Jun, [facility] [address] [id number] [address] [place] [address], [place] [address] Jun, [facility] [address] [id number] [address] [place] [address], [place] [address] Jun, [facility] [address] [id number] [address] [place] [address], [place] [address] 18 Jun, 2013 [facility] [address] [id number] [address] [place] [address], [place] [address] 18 Jun, 2013 [facility] [address] [id number] [address] [place] [address], [place] [address] 17 Jun, 2013 [facility] [address] [id number] [address] [place] [address], [place] [address] 17 Jun, 2013 [facility] [address] [id number] [address] [place] [address], [place] [address] 13 Jun, 2013 [facility] [address] [id number] [address] [place] [address], [place] [address] 12 Jun, 2013 [facility] [address] [id number] [address] [place] [address], [place] [address] 12 Jun, 2013 [facility] [address] [id number] [address] [place] [address], [place] [address] 09 Jun, 2013 [facility] [address] [id number] [address] [place] [address], [place] [address] 05 Jun, 2013 [facility] [address] [id number] [address] [place] [address], [place] [address] 05 Jun, 2013 [facility] [address] [id number] [address] [place] [address], [place] [address] 04 Jun, 2013 [facility] [address] [id number] [address] [place] [address], [place] [address] 04 Jun, 2013 [facility] [address] [id number] [address] [place] [address], [place] [address] May, [facility] [address] [id number] [address] [place] [address], [place] [address] 17 May, 2013 [facility] [address] [id number] [address] [place] [address], [place] [address] May, [facility] [address] [id number] [address] [place] [address], [place] [address] May, [facility] [address] [id number] [address] [place] [address] [address] May, [facility] [address] [id number] [address] [place] [address], [place] [address] May, [facility] [address] [id number] [address] [place] [address], [place] [address] Apr, [facility] [address] [id number] [address] [place] [address], [place] [address] Apr, [facility] [address] [id number] [address] [place] [address], [place] [address] Apr, [facility] [address] [id number] [address] [place] [address], [place] [address] Apr, [facility] [address] [id number] [address] [place] [address], [place] [address] Apr, [facility] [address] [id number] [address] [place] [address], [place] [address] Apr, [facility] [address] [id number] [address] [place] [address], [place] [address] 15 Apr, 2013 [facility] [address] [id number] [address] [place] [address], [place] [address] Apr, [facility] [address] [id number] [address] [place] [address] 26 Mar, 2013 [facility] [address] [id number] [address] [place] [address] 24 Sep, 2012 [facility] [address] [id number] [address] [place] [address] 17 Sep, 2012 [facility] [address] [id number] [address] [place] [address], [place] [address] 17 Sep, 2012 [facility] [address] [id number] [address] [place] [address] 11 Sep, 2012 [facility] [address] [id number] [address] [place] [address], [place] [address] 10 Mar, 2012 [facility] [address] [id number] [address] [place] [address], [place] [address] 05 Mar, 2013 [facility] [address] [id number] [address] [place] [address], [place] [address] 04 Mar, 2013 [facility] [address] [id number] [address] [place] [address], [place] [address] Jan, [facility] [address] [id number] [address] [place] [address], [place] [address] Jan, [facility] [address] [id number] [address] [place] [address], [place] [address] Jan, [facility] [address] [id number] [address] [place] [address], [place] [address] Jan, [facility] [address] [id number] [address] [place] [address], [place] [address] Jan, [facility] [address] [id number] [address] [place] [address], [place] [address] Jan, [facility] [address] [id number] [address] [place] [address], [place] [address] Dec, [facility] [address] [id number] [address] [place] [address], [place] [address] 24 Dec, 2012 [facility] [address] [id number] [address] [place] [address], [place] [address] Dec, [facility] [address] [id number] [address] [place] [address], [place] [address] Dec, [facility] [address] [id number] [address] [place] [address], [place] [address] 18 Dec, 2012 [facility] [address] [id number] [address] [place] [address], [place] [address] 17 Dec, 2012 [facility] [address] [id number] [address] [place] [address], [place] [address] 16 Dec, 2012 [facility] [address] [id number] [address] [place] [address], [place] [address] 16 Dec, 2012 [facility] [address] [id number] [address] [place] [address], [place] [address] 15 Dec, 2012 [facility] [address] [id number] [address] [place] [address], [place] [address] Dec, [facility] [address] [id number] [address] [place] [address], [place] [address] Dec, [facility] [address] [id number] [address] [place] [address], [place] [address] Dec, [facility] [address] [id number] [address] [place] [address], [place] [address] Dec, [facility] [address] [id number] [address] [place] [address], [place] [address] Dec, [facility] [address] [id number] [address] [place] [address], [place] [address] Dec, [facility] [address] [id number] [address] [place] [address], [place] [address] Dec, [facility] [address] [id number] [address] [place] [address], [place] [address] October, [facility] [address] [id number] [address] [place] [address], [place] [address] October, [facility] [address] [id number] [address] [place] [address], [place] [address] October, [facility] [address] [id number] [address] [place] [address], [place] [address] October, [facility] [address] [id number] [address] [place] [address], [place] [address] October, [facility] [address] [id number] [address] [place] [address], [place] [address] October, [facility] [address] [id number] [address] [place] [address], [place] [address] October, [facility] [address] [id number] [address] [place] [address], [place] [address] 29 Oct, 2012 [facility] [address] [id number] [address] [place] [address], [place] [address] Oct, [facility] [address] [id number] [address] [place] [address], [place] [address] 24 Oct, 2012 [facility] [address] [id number] [address] [place] [address], [place] [address] Oct, [facility] [address] [id number] [address] [place] [address], [place] [address] Oct, [facility] [address] [id number] [address] [place] [address], [place] [address] 18 Oct, 2012 [facility] [address] [id number] [address] [place] [address], [place] [address] 17 Oct, 2012 [facility] [address] [id number] [address] [place] [address], [place] [address] 15 Oct, 2012 [facility] [address] [id number] [address] [place] [address], [place] [address] Oct, [facility] [address] [id number] [address] [place] [address], [place] [address] Oct, [facility] [address] [id number] [address] [place] [address], [place] [address] Oct, [facility] [address] [id number] [address] [place] [address], [place] [address] Oct, [facility] [address] [id number] [address] [place] [address], [place] [address] Aug, [facility] [address] [id number] [address] [place] [address], [place] [address] Aug, [facility] [address] [id number] [address] [place] [address], [place] [address] Aug, [facility] [address] [id number] [address] [place] [address], [place] [address] Aug, [facility] [address] [id number] [address] [place] [address], [place] [address] 05 Aug, 2012 [facility] [address] [id number] [address] [place] [address], [place] [address] 05 Aug, 2012 [facility] [address] [id number] [address] [place] [address], [place] [address] 20 Aug, 2012 [facility] [address] [id number] [address] [place] [address], [place] [address] 14 Aug, 2012 [facility] [address] [id number] [address] [place] [address], [place] [address] 12 Aug, 2012 [facility] [address] [id number] [address] [place] [address], [place] [address] 11 Aug, 2012 [facility] [address] [id number] [address] [place] [address], [place] [address] 29 Jul, 2012 [facility] [address] [id number] [address] [place] [address], [place] [address] 15 Jul, 2012 [facility] [address] [id number] [address] [place] [address], [place] [address] 08 Jul, 2012 [facility] [address] [id number] [address] [place] [address], [place] [address] 20 Jun, 2012 [facility] [address] [id number] [address] [place] [address], [place] [address] 18 Jun, 2012 [facility] [address] [id number] [address] [place] [address], [place] [address] 18 Jun, 2012 [facility] [address] [id number] [address] [place] [address], [place] [address] 18 Jun, 2012 [facility] [address] [id number] [address] [place] [address], [place] [address] 18 Jun, 2012 [facility] [address] [id number] [address] [place] [address], [place] [address] 14 Jun, 2012 [facility] [address] [id number] [address] [place] [address] [address] 14 Jun, 2012 [facility] [address] [id number] [address] [place] [address], [place] [address] 13 Jun, 2012 [facility] [address] [id number] [address] [place] [address], [place] [address] 13 Jun, 2012 [facility] [address] [id number] [address] [place] [address], [place] [address] 11 Jun, 2012 [facility] [address] [id number] [address] [place] [address], [place] [address] 11 Jun, 2012 [facility] [address] [id number] [address] [place] [address], [place] [address] Jun, [facility] [address] [id number] [address] [place] [address], [place] [address] Jun, [facility] [address] [id number] [address] [place] [address], [place] [address] 07 Jun, 2012 [facility] [address] [id number] [address] [place] [address], [place] [address] 07 Jun, 2012 [facility] [address] [id number] [address] [place] [address], [place] [address] Jun, [facility] [address] [id number] [address] [place] [address], [place] [address] 06 Jun, 2012 [facility] [address] [id number] [address] [place] [address], [place] [address] Jun, [facility] [address] [id number] [address] [place] [address], [place] [address] Jun, [facility] [address] [id number] [address] [place] [address], [place] [address] Jun, [facility] [address] [id number] [address] [place] [address], [place] [address] 05 Jun, 2012 [facility] [address] [id number] [address] [place] [address], [place] [address] Jun, [facility] [address] [id number] [address] [place] [place] [address], [place] [address] Jun, [facility] [address] [id number] [address] [place] [address], [place] [address] May, [facility] [address] [id number] [address] [place] [address], [place] [address] May, [facility] [address] [id number] [address] [place] [address], [place] [address] May, [facility] [address] [id number] [address] [place] [address], [place] [address] May, [facility] [address] [id number] [address] [place] [address], [place] [address] May, [facility] [address] [id number] [address] [place] [address], [place] [address] May, [facility] [address] [id number] [address] [place] [address], [place] [address] May, [facility] [address] [id number] [address] [place] [address], [place] [address] May, [facility] [address] [id number] [address] [place] [address], [place] [address] Apr, [facility] [address] [id number] [address] [place] [address], [place] [address] Apr, [facility] [address] [id number] [address] [place] [address], [place] [address] 29 Apr, 2012 [facility] [address] [id number] [address] [place] [phone] Apr, [facility] [address] [id number] [address] [place] [address], [place] [address] Apr, [facility] [address] [id number] [address] [place] [address], [place] [address] Apr, [facility] [address] [id number] [address] [place] [phone] Apr, [facility] [address] [id number] [address] [place] [address], [place] [address] Apr, [facility] [address] [id number] [address] [place] [address], [place] [address] Apr, [facility] [address] [id number] [address] [place] [address], [place] [address] Apr, [facility] [address] [id number] [address] [place] [address], [place] [address] Apr, [facility] [address] [id number] [address] [place] [address], [place] [address] Apr, [facility] [address] [id number] [address] [place] [address], [place] [address] Mar, [facility] [address] [id number] [address] [place] [address], [place] [address] 18 Mar, 2012 [facility] [address] [id number] [address] [place] [phone] Mar, [facility] [address] [id number] [address] [place] [address], [place] [address] Mar, [facility] [address] [id number] [address] [place] [id number] Mar, [facility] [address] [id number] [address] [place] [id number] Mar, [facility] [address] [id number] [address] [place] [phone] Mar, [facility] [address] [id number] [address] [place] [phone] Jan, [facility] [address] [id number] [address] [place] [phone] Jan, [facility] [address] [id number] [address] [place] [id number] Jan, [facility] [address] [id number] [address] [place] [id number] Jan, [facility] [address] [id number] [address] [place] [address], [place] [address] Jan, [facility] [address] [id number] [address] [place] [address], [place] [address] Jan, [facility] [address] [id number] [address] [place] [address], [place] [address] Jan, [facility] [address] [id number] [address] [place] [address], [place] [address] Jan, [facility] [address] [id number] [address] [place] [address], [place] [address] Jan, [facility] [address] [id number] [address] [place] [address], [place] [address] Jan, [facility] [address] [id number] [address] [place] [address], [place] [address] Jan, [facility] [address] [id number] [address] [place] [address], [place] [address] Dec, [facility] [address] [id number] [address] [place] [address], [place] [address] Dec, [facility] [address] [id number] [address] [place] [address], [place] [address] Dec, [facility] [address] [id number] [address] [place] [address], [place] [address] Dec, [facility] [address] [id number] [address] [place] [address], [place] [address] Dec, [facility] [address] [id number] [address] [place] [address], [place] [address] Dec, [facility] [address] [id number] [address] [place] [address], [place] [address] Dec, [facility] [address] [id number] [address] [place] [address], [place] [address] Dec, [facility] [address] [id number] [address] [place] [address], [place] [address] 16 Jan, 2012 [facility] [address] [id number] [address] [place] [address], [place] [address] 13 Jan, 2012 [facility] [address] [id number] [address] [place] [address], [place] [address] 13 Jan, 2012 [facility] [address] [id number] [address] [place] [address], [place] [address] Dec, [facility] [address] [id number] [address] [place] [address], [place] [address] Dec, [facility] [address] [id number] [address] [place] [address], [place] [address] Dec, [facility] [address] [id number] [address] [place] [address], [place] [address] Dec, [facility] [address] [id number] [address] [place] [address], [place] [address] Dec, [facility] [address] [id number] [address] [place] [address], [place] [address] Dec, [facility] [address] [id number] [address] [place] [address], [place] [address] Dec, [facility] [address] [id number] [address] [place] [address], [place] [address] Dec, [facility] [address] [id number] [address] [place] [address], [place] [address] October, [facility] [address] [id number] [address] [place] [address], [place] [address] October, [facility] [address] [id number] [address] [place] [address], [place] [address] October, [facility] [address] [id number] [address] [place] [address], [place] [address] October, [facility] [address] [id number] [address] [place] [address], [place] [address] October, [facility] [address] [id number] [address] [place] [address], [place] [address] October, [facility] [address] [id number] [address] [place] [address], [place] [address] Oct, [facility] [address] [id number] [address] [place] [address], [place] [address] Oct, [facility] [address] [id number] [address] [place] [address], [place] [address] Oct, [facility] [address] [id number] [address] [place] [address], [place] [address] Oct, [facility] [address] [id number] [address] [place] [address], [place] [address] Oct, [facility] [address] [id number] [address] [place] [address], [place] [address] Oct, [facility] [address] [id number] [address] [place] [address], [place] [address] Oct, [facility] [address] [id number] [address] [place] [address], [place] [address] Aug, [facility] [address] [id number] [address] [place] [address], [place] [address] Aug, [facility] [address] [id number] [address] [place] [address], [place] [address] Aug, [facility] [address] [id number] [address] [place] [address], [place] [address] Aug, [facility] [address] [id number] [address] [place] [address], [place] [address] Aug, [facility] [address] [id number] [address] [place] [address], [place] [address] Aug, [facility] [address] [id number] [address] [place] [address], [place] [address] Aug, [facility] [address] [id number] [address] [place] [address], [place] [address] Aug, [facility] [address] [id number] [address] [place] [address], [place] [address] Aug, [facility] [address] [id number] [address] [place] [address], [place] [address] Jul, [facility] [address] [id number] [address] [place] [address], [place] [address] Jul, [facility] [address] [id number] [address] [place] [address], [place] [address] Jul, [facility] [address] [id number] [address] [place] [address], [place] [address] Jul, [facility] [address] [id number] [address] [place] [address], [place] [address] Jun, [facility] [address] [id number] [address] [place] [address], [place] [address] Jun, [facility] [address] [id number] [address] [place] [address], [place] [address] May, [facility] [address] [id number] [address] [place] [address], [place] [address] May, [facility] [address] [id number] [address] [place] [address], [place] [address] May, [facility] [address] [id number] [address] [place] [address], [place] [address] May, [facility] [address] [id number] [address] [place] [address], [place] [address] May, [facility] [address] [id number] [address] [place] [address], [place] [address] 28 Apr, 2011 [facility] [address] [id number] [address] [place] [address], [place] [address] 28 Apr, 2011 [facility] [address] [id number] [address] [place] [address], [place] [address] 10 Apr, 2011 [facility] [address] [id number] [address] [place] [address] Jan, [facility] [address] [id number] [address] [place] [phone] Dec, [facility] [address] [id number] [address] [place] [phone] October, [facility] [address] [facility] [id number] [address] [place] [phone] Jun, [facility] [address] [id number] [address] [place] [phone] Apr, [facility] [address] [facility] [id number] [address] [place] [id number] Apr, [facility] [address] [facility] [id number] [address] [place] [phone] Apr, [facility] [address] [facility] [id number] [address] [place] [phone] Jun, IMMUNIZATIONS No Known Immunizations SOCIAL HISTORY [...]
--- OUTSIDE RECORDS SUMMARY | 2020-01-25 13:30 | XMS REPORT ---
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 Name Role Phone MELISA Iraheta Unavailable PROBLEMS Type Condition ICD9-CM Code CNP23-KA Code Onset Dates Condition S tatus SNOMED Code Problem Chronic hepatitis C without hepatic coma B18.2 Active 811191327 Problem Cannabis abuse F12.10 Active 03769 009 Problem Bipolar 1 disorder F31.9 Active 3 13072039 Problem Attention deficit hyperactivity disorder (ADHD), combi luciano type F90.2 Active 42205133 Problem Attention deficit R41.840 Active 76 116256 Problem Hot flashes due to menopause N95.1 A ctive 329679329 Problem H/O laminectomy Z98.89 Active 1616 10754 Problem Other chronic pain G89.29 Active 8 9454013 Problem Anxiety disorder, unspecified type F41.9 Active 167260268 Problem Bipolar disorder, in partial remission, most rec ent episode hypomanic F31.71 Active 385260514 ALLERGIES No Information ENCOUNTERS Encounter Location Date Diagnosis [facility] [address] [id number] [address] [place] [id number] Oct, [facility] [place] [address] [facility] [id number] [address] [place] [phone] Oct, [facility] [place] [address] [facility] [facility] [id number] [address] [place] [address] Aug, [facility] [place] [address] [facility] [id number] [address] [place] [phone] Jul, [facility] [place] [address] [facility] [id number] [address] [place] [address] Jul, [facility] [place] [address] [facility] [id number] [address] [place] [phone] Apr, [facility] [place] [address] [id number] [address] [place] [address] Mar, Hot flashes due to menopause N95.1 ; Anxiety disorder, unspecified type F41.9 ; Low back pain M54.5 and Encounter for immunization Z23 [facility] [place] [address] [id number] [address] [place] [address] Dec, Other chronic pain G89.29 an d Low back pain M54.5 [facility] [place] [address] [id number] [address] [place] [address] October, [facility] [place] [address] [id number] [address] [place] [address] October, [facility] [place] [address] [id number] [address] [place] [id number] October, [facility] [place] [address] [facility] [id number] [address] [place] [address] October, Other chronic pain G89.29 an d Chronic hepatitis C without hepatic coma B18.2 [facility] [place] [address] [id number] [address] [place] [address] Aug, Bipolar disorder, in partial remission, most recent episode hypomanic F31.71 ; Attention deficit hyperactivity disorder (ADHD), combined type F90.2 and Anxiety disorder, unspecified type F41.9 [facility] [place] [address] [id number] [address] [place] [address] Aug, [facility] [place] [address] [id number] [address] [place] [address] Aug, Bipolar disorder, in partial remission, most recent episode hypomanic F31.71 [facility] [place] [address] [facility] [id number] [address] [place] [address] Aug, [facility] [place] [address] [facility] [id number] [address] [place] [phone] Aug, Bipolar disorder, in partial remission, most recent episode hypomanic F31.71 [facility] [place] [address] [id number] [address] [place] [address] Aug, Bipolar disorder, in partial remission, most recent episode hypomanic F31.71 ; Attention deficit hyperactivity disorder (ADHD), combined type F90.2 and Anxiety disorder, unspecified type F41.9 [facility] [place] [address] [id number] [address] [place] [address] Aug, Low back pain M54.5 and Pain in left wrist M25.532 [facility] [place] [address] [id number] [address] [place] [address] Aug, [facility] [place] [address] [id number] [address] [place] [address] Jun, [facility] [place] [address] [id number] [address] [place] [address] Apr, Bipolar disorder, in partial remission, most recent episode hypomanic F31.71 [facility] [place] [address] [id number] [address] [place] [address] Apr, [facility] [place] [address] [id number] [address] [place] [address] Apr, Bipolar disorder, in partial remission, most recent episode hypomanic F31.71 ; Attention deficit hyperactivity disorder (ADHD), combined type F90.2 ; Anxiety disorder, unspecified type F41.9 and 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 [facility] [place] [address] [id number] [address] [place] [address] Apr, Bipolar disorder, in partial remission, most recent episode hypomanic F31.71 [facility] [place] [address] [id number] [address] [place] [address] Apr, Bipolar disorder, in partial remission, most recent episode hypomanic F31.71 [facility] [place] [address] [id number] [address] [place] [phone] Mar, [facility] [place] [address] [facility] [id number] [address] [place] [address] Mar, Bipolar disorder, in partial remission, most recent episode hypomanic F31.71 ; Encounter for immunization Z23 and Low back pain M54.5 [facility] [place] [address] [id number] [address] [place] [address] Mar, Bipolar disorder, in partial remission, most recent episode hypomanic F31.71 [facility] [place] [address] [id number] [address] [place] [phone] Mar, Bipolar disorder, in partial remission, most recent episode hypomanic F31.71 [facility] [place] [address] [id number] [address] [place] [address] Jan, Bipolar disorder, in partial remission, most recent episode hypomanic F31.71 [facility] [place] [address] [facility] [id number] [address] [place] [phone] Jan, Bipolar disorder, in partial remission, most recent episode hypomanic F31.71 [facility] [place] [address] [facility] [id number] [address] [place] [address] Dec, Bipolar disorder, in partial remission, most recent episode hypomanic F31.71 [facility] [place] [address] [facility] [id number] [address] [place] [address] Dec, Bipolar disorder, in partial remission, most recent episode hypomanic F31.71 ; Attention deficit hyperactivity disorder (ADHD), combined type F90.2 ; Anxiety disorder, unspecified type F41.9 and Other shelter (current) drug therapy Z79.899 [facility] [place] [address] [id number] [address] [place] [address] Dec, Bipolar disorder, in partial remission, most recent episode hypomanic F31.71 [facility] [place] [address] [facility] [id number] [address] [place] [address] Dec, Bipolar disorder, in partial remission, most recent episode hypomanic F31.71 [facility] [place] [address] [facility] [id number] [address] [place] [address] October, Bipolar disorder, in partial remission, most recent episode hypomanic F31.71 [facility] [place] [address] [id number] [address] [place] [id number] October, [facility] [place] [address] [id number] [address] [place] [address] October, [facility] [place] [address] [id number] [address] [place] [address] Oct, Bipolar disorder, in partial remission, most recent episode hypomanic F31.71 ; Attention deficit hyperactivity disorder (ADHD), combined type F90.2 ; Anxiety disorder, unspecified type F41.9 and Encounter for drug screening Z02.83 [facility] [place] [address] [id number] [address] [place] [address] Oct, Bipolar disorder, in partial remission, most recent episode hypomanic F31.71 [facility] [place] [address] [facility] [id number] [address] [place] [address] Oct, Bipolar disorder, in partial remission, most recent episode hypomanic F31.71 [facility] [place] [address] [facility] [id number] [address] [place] [address] Aug, Bipolar disorder, in partial remission, most recent episode hypomanic F31.71 [facility] [place] [address] [facility] [id number] [address] [place] [address] Aug, Bipolar disorder, in partial remission, most recent episode hypomanic F31.71 [facility] [place] [address] [id number] [address] [place] [address] Aug, Bipolar disorder, in partial remission, most recent episode hypomanic F31.71 [facility] [place] [address] [facility] [id number] [address] [place] [phone] Jul, Bipolar disorder, in partial remission, most recent episode hypomanic F31.71 ; Attention deficit hyperactivity disorder (ADHD), combined type F90.2 and Anxiety disorder, unspecified type F41.9 [facility] [place] [address] [facility] [id number] [address] [place] [phone] Jul, Bipolar disorder, in partial remission, most recent episode hypomanic F31.71 [facility] [place] [address] [id number] [address] [place] [address] Jun, Bipolar disorder, in partial remission, most recent episode hypomanic F31.71 [facility] [place] [address] [id number] [address] [place] [address] May, Bipolar disorder, in partial remission, most recent episode hypomanic F31.71 [facility] [place] [address] [facility] [id number] [address] [place] [address] May, Bipolar disorder, in partial remission, most recent episode hypomanic F31.71 [facility] [place] [address] [facility] [id number] [address] [place] [id number] Apr, [facility] [place] [address] [facility] [id number] [address] [place] [address] Apr, Bipolar disorder, in partial remission, most recent episode hypomanic F31.71 ; Attention deficit hyperactivity disorder (ADHD), combined type F90.2 ; Anxiety disorder, unspecified type F41.9 and Cannabis abuse F12.10 [facility] [place] [address] [facility] [id number] [address] [place] [phone] Apr, Attention deficit hyperactiv ity disorder (ADHD), combined type F90.2 [facility] [place] [address] [facility] [id number] [address] [place] [phone] Mar, Attention deficit hyperactiv ity disorder (ADHD), combined type F90.2 [facility] [place] [address] [facility] [id number] [address] [place] [phone] 14 Mar, 2017 Anxiety disorder, unspecifie d type F41.9 [facility] [place] [address] [facility] [id number] [address] [place] [phone] Jan, Attention deficit hyperactiv ity disorder (ADHD), combined type F90.2 [facility] [place] [address] [facility] [id number] [address] [place] [phone] Jan, Anxiety disorder, unspecifie d type F41.9 [facility] [place] [address] [facility] [id number] [address] [place] [address] Jan, Other chronic pain G89.29 ; Chronic hepatitis C without hepatic coma B18.2 and Bipolar 1 disorder F31.9 [facility] [place] [address] [facility] [id number] [address] [place] [address] Dec, Attention deficit hyperactiv ity disorder (ADHD), combined type F90.2 [facility] [place] [address] [facility] [id number] [address] [place] [address] Dec, Bipolar disorder, in partial remission, most recent episode hypomanic F31.71 ; Attention deficit hyperactivity disorder (ADHD), combined type F90.2 and Anxiety disorder, unspecified type F41.9 [place] [address] [place] [id number] [address] [place] [address] Dec, Bipolar disorder, in partial remission, most recent episode hypomanic F31.71 ; Attention deficit hyperactivity disorder (ADHD), combined type F90.2 and Anxiety disorder, unspecified type F41.9 [facility] [place] [address] [facility] [id number] [address] [place] [address] Dec, Bipolar 1 disorder F31.9 and Attention deficit R41.840 [place] [address] [place] [id number] [address] [place] [address] Oct, Other chronic pain G89.29 ; Alopecia L65.9 and Screening, lipid Z13.220 [facility] [place] [address] [facility] [id number] [address] [place] [address] Oct, [facility] [place] [address] [place] [id number] [address] [place] [address] Aug, [facility] [place] [address] [facility] [id number] [address] [place] [address] Aug, Eustachian tube dysfunction, right H69.81 ; Vertigo R42 and Other chronic pain G89.29 [facility] [place] [address] [id number] [address] [place] [address] Aug, [facility] [place] [address] [id number] [address] [place] [address] Jun, [facility] [place] [address] [id number] [address] [place] [address] Jun, Low back pain M54.5 and Othe r chronic pain G89.29 [facility] [place] [address] [id number] [address] [place] [address] Jun, [facility] [place] [address] [id number] [address] [place] [address] May, [facility] [place] [address] [id number] [address] [place] [address] Jan, [facility] [place] [address] [id number] [address] [place] [address] Dec, [facility] [place] [address] [id number] [address] [place] [phone] Dec, [facility] [place] [address] [id number] [address] [place] [address] Jun, [facility] [place] [address] [id number] [address] [place] [address] Apr, Eustachian tube dysfunction, unspecified laterality H69.80 ; Hot flashes N95.1 and Encounter for immunization Z23 [facility] [place] [address] [id number] [address] [place] [address] Jan, [facility] [place] [address] [id number] [address] [place] [address] Jan, [facility] [place] [address] [id number] [address] [place] [phone] Jan, [facility] [place] [address] [id number] [address] [place] [phone] Jan, [facility] [place] [address] [id number] [address] [place] [address] Jan, Encounter to establish care V65.8 ; Bipolar 1 disorder 296.7 ; Abdominal pain 789.00 ; Constipation 564.00 ; Hard of hearing 389.9 and Drug abuse 305.90 [facility] [place] [address] [id number] [address] [place] [address] Dec, [facility] [place] [address] [id number] [address] [place] [address] October, [facility] [place] [address] [id number] [address] [place] [phone] October, [facility] [place] [address] [id number] [address] [place] [address] Oct, [facility] [place] [address] [id number] [address] [place] [phone] Oct, [facility] [place] [address] [facility] [id number] [address] [place] [address] Oct, [facility] [place] [address] [id number] [address] [place] [address] Aug, [facility] [place] [address] [id number] [address] [place] [address] Aug, [facility] [place] [address] [id number] [address] [place] [id number] Aug, [facility] [place] [address] [id number] [address] [place] [phone] Aug, [facility] [place] [address] [id number] [address] [place] [address] Aug, [facility] [place] [address] [id number] [address] [place] [id number] Aug, [facility] [place] [address] [id number] [address] [place] [address] Aug, [facility] [address] [id number] [address] [place] [address], [place] [address] Aug, 2014 [facility] [address] [id number] [address] [place] [address], [place] [address] Aug, 2014 [facility] [address] [id number] [address] [place] [address], [place] [address] Aug, 2014 [facility] [address] [id number] [address] [place] [address], [place] [address] Aug, 2014 [facility] [address] [id number] [address] [place] [address], [place] [address] Aug, 2014 [facility] [address] [id number] [address] [place] [address], [place] [address] Aug, 2014 [facility] [address] [id number] [address] [place] [address], [place] [address] Aug, 2014 [facility] [address] [id number] [address] [place] [address], [place] [address] Aug, [facility] [address] [id number] [address] [place] [address], [place] [address] Jul, [facility] [address] [id number] [address] [place] [address], [place] [address] Jul, [facility] [address] [id number] [address] [place] [address], [place] [address] Jul, [facility] [address] [id number] [address] [place] [address], [place] [address] Jul, [facility] [address] [id number] [address] [place] [address], [place] [address] Jul, [facility] [address] [id number] [address] [place] [address], [place] [address] Jul, [facility] [address] [id number] [address] [place] [address], [place] [address] Jul, [facility] [address] [id number] [address] [place] [address], [place] [address] Jul, [facility] [address] [id number] [address] [place] [address], [place] [address] Jun, [facility] [address] [id number] [address] [place] [address], [place] [address] Jun, [facility] [address] [id number] [address] [place] [address], [place] [address] Jun, [facility] [address] [id number] [address] [place] [address], [place] [address] Jun, [facility] [address] [id number] [address] [place] [address], [place] [address] Jun, [facility] [address] [id number] [address] [place] [address], [place] [address] Jun, [facility] [address] [id number] [address] [place] [address], [place] [address] Jun, [facility] [address] [id number] [address] [place] [address], [place] [address] Jun, [facility] [address] [id number] [address] [place] [address], [place] [address] Jun, [facility] [address] [id number] [address] [place] [address], [place] [address] Jun, [facility] [address] [id number] [address] [place] [address], [place] [address] Jun, [facility] [address] [id number] [address] [place] [address], [place] [address] May, [facility] [address] [id number] [address] [place] [address], [place] [address] May, [facility] [address] [id number] [address] [place] [address], [place] [address] May, [facility] [address] [id number] [address] [place] [address], [place] [address] May, [facility] [address] [id number] [address] [place] [address], [place] [address] May, [facility] [address] [id number] [address] [place] [address], [place] [address] May, [facility] [address] [id number] [address] [place] [address], [place] [address] May, [facility] [address] [id number] [address] [place] [address], [place] [address] Apr, [facility] [address] [id number] [address] [place] [address], [place] [address] Apr, [facility] [address] [id number] [address] [place] [address], [place] [address] Apr, [facility] [address] [id number] [address] [place] [address], [place] [address] Apr, [facility] [address] [id number] [address] [place] [address], [place] [address] Apr, [facility] [address] [id number] [address] [place] [address], [place] [address] Apr, [facility] [address] [id number] [address] [place] [address], [place] [address] Mar, [facility] [address] [id number] [address] [place] [address], [place] [address] 29 Mar, 2014 [facility] [address] [id number] [address] [place] [address], [place] [address] Mar, [facility] [address] [id number] [address] [place] [address], [place] [address] Mar, [facility] [address] [id number] [address] [place] [address], [place] [address] Mar, [facility] [address] [id number] [address] [place] [address], [place] [address] Mar, [facility] [address] [id number] [address] [place] [address], [place] [address] Jan, [facility] [address] [id number] [address] [place] [address], [place] [address] Jan, [facility] [address] [id number] [address] [place] [address], [place] [address] Jan, [facility] [address] [id number] [address] [place] [address], [place] [address] Jan, [facility] [address] [id number] [address] [place] [address], [place] [address] Dec, [facility] [address] [id number] [address] [place] [address], [place] [address] Dec, [facility] [address] [id number] [address] [place] [address], [place] [address] Dec, [facility] [address] [id number] [address] [place] [address], [place] [address] Dec, [facility] [address] [id number] [address] [place] [address], [place] [address] Dec, [facility] [address] [id number] [address] [place] [address], [place] [address] Dec, [facility] [address] [id number] [address] [place] [address], [place] [address] Dec, [facility] [address] [id number] [address] [place] [address], [place] [address] Dec, [facility] [address] [id number] [address] [place] [address], [place] [address] Dec, [facility] [address] [id number] [address] [place] [address], [place] [address] Dec, [facility] [address] [id number] [address] [place] [address], [place] [address] Dec, [facility] [address] [id number] [address] [place] [address], [place] [address] Dec, [facility] [address] [id number] [address] [place] [address], [place] [address] October, [facility] [address] [id number] [address] [place] [address], [place] [address] October, [facility] [address] [id number] [address] [place] [address], [place] [address] October, [facility] [address] [id number] [address] [place] [address], [place] [address] October, [facility] [address] [id number] [address] [place] [address], [place] [address] October, [facility] [address] [id number] [address] [place] [address], [place] [address] October, [facility] [address] [id number] [address] [place] [address], [place] [address] Oct, [facility] [address] [id number] [address] [place] [address], [place] [address] Oct, [facility] [address] [id number] [address] [place] [address], [place] [address] Oct, [facility] [address] [id number] [address] [place] [address], [place] [address] Oct, [facility] [address] [id number] [address] [place] [address], [place] [address] Oct, [facility] [address] [id number] [address] [place] [address], [place] [address] Oct, [facility] [address] [id number] [address] [place] [address], [place] [address] Oct, [facility] [address] [id number] [address] [place] [address], [place] [address] Oct, [facility] [address] [id number] [address] [place] [address], [place] [address] Oct, [facility] [address] [id number] [address] [place] [address], [place] [address] Oct, [facility] [address] [id number] [facility] [place] [address] 08 Oct, 2013 [facility] [address] [id number] [address] [place] [address], [place] [address] Oct, [facility] [address] [id number] [address] [place] [address], [place] [address] 15 Aug, 2013 [facility] [address] [id number] [address] [place] [address], [place] [address] 15 Aug, 2013 [facility] [address] [id number] [address] [place] [address], [place] [address] Aug, [facility] [address] [id number] [address] [place] [address], [place] [address] Aug, [facility] [address] [id number] [address] [place] [address], [place] [address] Aug, [facility] [address] [id number] [address] [place] [address], [place] [address] Aug, [facility] [address] [id number] [address] [place] [address], [place] [address] 04 Aug, 2013 [facility] [address] [id number] [address] [place] [address], [place] [address] Aug, [facility] [address] [id number] [address] [place] [address], [place] [address] Aug, [facility] [address] [id number] [address] [place] [address], [place] [address] Aug, [facility] [address] [id number] [address] [place] [address], [place] [address] Aug, [facility] [address] [id number] [address] [place] [address], [place] [address] Aug, [facility] [address] [id number] [address] [place] [address], [place] [address] Aug, [facility] [address] [id number] [address] [place] [address], [place] [address] 20 Aug, 2013 [facility] [address] [id number] [address] [place] [address], [place] [address] 14 Aug, 2013 [facility] [address] [id number] [address] [place] [address], [place] [address] 14 Aug, 2013 [facility] [address] [id number] [address] [place] [address], [place] [address] 14 Aug, 2013 [facility] [address] [id number] [address] [place] [address], [place] [address] 14 Aug, 2013 [facility] [address] [id number] [address] [place] [address], [place] [address] 07 Aug, 2013 [facility] [address] [id number] [address] [place] [address], [place] [address] 07 Aug, 2013 [facility] [address] [id number] [address] [place] [address], [place] [address] 06 Aug, 2013 [facility] [address] [id number] [address] [place] [address], [place] [address] 06 Aug, 2013 [facility] [address] [id number] [address] [place] [address], [place] [address] 04 Aug, 2013 [facility] [address] [id number] [address] [place] [address], [place] [address] 04 Aug, 2013 [facility] [address] [id number] [address] [place] [address], [place] [address] Aug, [facility] [address] [id number] [address] [place] [address], [place] [address] Jul, [facility] [address] [id number] [address] [place] [address], [place] [address] Jul, [facility] [address] [id number] [address] [place] [address], [place] [address] Jul, [facility] [address] [id number] [address] [place] [address], [place] [address] Jul, [facility] [address] [id number] [address] [place] [address], [place] [address] Jul, [facility] [address] [id number] [address] [place] [address], [place] [address] Jul, [facility] [address] [id number] [address] [place] [address], [place] [address] Jul, [facility] [address] [id number] [address] [place] [address], [place] [address] Jul, [facility] [address] [id number] [address] [place] [address], [place] [address] Jul, [facility] [address] [id number] [address] [place] [address], [place] [address] Jul, [facility] [address] [id number] [address] [place] [address], [place] [address] Jul, [facility] [address] [id number] [address] [place] [address], [place] [address] Jul, [facility] [address] [id number] [address] [place] [address], [place] [address] Jul, [facility] [address] [id number] [address] [place] [address], [place] [address] Jul, [facility] [address] [id number] [address] [place] [address], [place] [address] Jul, [facility] [address] [id number] [address] [place] [address], [place] [address] Jul, [facility] [address] [id number] [address] [place] [address], [place] [address] Jul, [facility] [address] [id number] [address] [place] [address], [place] [address] Jul, [facility] [address] [id number] [address] [place] [address], [place] [address] Jul, [facility] [address] [id number] [address] [place] [address], [place] [address] Jul, [facility] [address] [id number] [address] [place] [address], [place] [address] Jun, [facility] [address] [id number] [address] [place] [address], [place] [address] Jun, [facility] [address] [id number] [address] [place] [address], [place] [address] Jun, [facility] [address] [id number] [address] [place] [address], [place] [address] Jun, [facility] [address] [id number] [address] [place] [address], [place] [address] Jun, [facility] [address] [id number] [address] [place] [address], [place] [address] Jun, [facility] [address] [id number] [address] [place] [address], [place] [address] Jun, [facility] [address] [id number] [address] [place] [address], [place] [address] Jun, [facility] [address] [id number] [address] [place] [address], [place] [address] Jun, [facility] [address] [id number] [address] [place] [address], [place] [address] Jun, [facility] [address] [id number] [address] [place] [address], [place] [address] Jun, [facility] [address] [id number] [address] [place] [address], [place] [address] Jun, [facility] [address] [id number] [address] [place] [address], [place] [address] Jun, [facility] [address] [id number] [address] [place] [address], [place] [address] Jun, [facility] [address] [id number] [address] [place] [address], [place] [address] Jun, [facility] [address] [id number] [address] [place] [address], [place] [address] 18 Jun, 2013 [facility] [address] [id number] [address] [place] [address], [place] [address] 18 Jun, 2013 [facility] [address] [id number] [address] [place] [address], [place] [address] 17 Jun, 2013 [facility] [address] [id number] [address] [place] [address], [place] [address] 17 Jun, 2013 [facility] [address] [id number] [address] [place] [address], [place] [address] 13 Jun, 2013 [facility] [address] [id number] [address] [place] [address], [place] [address] Jun, [facility] [address] [id number] [address] [place] [address], [place] [address] 12 Jun, 2013 [facility] [address] [id number] [address] [place] [address], [place] [address] Jun, [facility] [address] [id number] [address] [place] [address], [place] [address] 05 Jun, 2013 [facility] [address] [id number] [address] [place] [address], [place] [address] 05 Jun, 2013 [facility] [address] [id number] [address] [place] [address], [place] [address] Jun, [facility] [address] [id number] [address] [place] [address], [place] [address] Jun, [facility] [address] [id number] [address] [place] [address], [place] [address] May, [facility] [address] [id number] [address] [place] [address], [place] [address] May, [facility] [address] [id number] [address] [place] [address], [place] [address] May, [facility] [address] [id number] [address] [place] [address], [place] [address] May, [facility] [address] [id number] [address] [place] [address], [place] [address] May, [facility] [address] [id number] [address] [place] [address], [place] [address] May, [facility] [address] [id number] [address] [place] [address], [place] [address] Apr, [facility] [address] [id number] [address] [place] [address], [place] [address] Apr, [facility] [address] [id number] [address] [place] [address], [place] [address] Apr, [facility] [address] [id number] [address] [place] [address], [place] [address] Apr, [facility] [address] [id number] [address] [place] [address], [place] [address] Apr, [facility] [address] [id number] [address] [place] [address], [place] [address] Apr, [facility] [address] [id number] [address] [place] [address], [place] [address] Apr, [facility] [address] [id number] [address] [place] [address] Apr, [facility] [address] [id number] [address] [place] [address], [place] [address] 26 Mar, 2013 [facility] [address] [id number] [address] [place] [address] 24 Sep2012 [facility] [address] [id number] [address] [place] [address], [place] [address] 17 Sep2012 [facility] [address] [id number] [address] [place] [address], [place] [address] 17 Mar, 2012 [facility] [address] [id number] [address] [place] [address], [place] [address] 11 Mar, 2013 [facility] [address] [id number] [address] [place] [address], [place] [address] 10 Mar, 2013 [facility] [address] [id number] [address] [place] [address], [place] [address] 05 Mar, 2013 [facility] [address] [id number] [address] [place] [address], [place] [address] 04 Mar, 2013 [facility] [address] [id number] [address] [place] [address], [place] [address] Jan, [facility] [address] [id number] [address] [place] [address], [place] [address] Jan, [facility] [address] [id number] [address] [place] [address], [place] [address] 14 Jan, 2013 [facility] [address] [id number] [address] [place] [address], [place] [address] Jan, [facility] [address] [id number] [address] [place] [address], [place] [address] Jan, [facility] [address] [id number] [address] [place] [address], [place] [address] Jan, [facility] [address] [id number] [address] [place] [address], [place] [address] Dec, [facility] [address] [id number] [address] [place] [address], [place] [address] Dec, [facility] [address] [id number] [address] [place] [address], [place] [address] Dec, [facility] [address] [id number] [address] [place] [address], [place] [address] Dec, [facility] [address] [id number] [address] [place] [address], [place] [address] 18 Dec, 2012 [facility] [address] [id number] [address] [place] [address], [place] [address] 17 Dec, 2012 [facility] [address] [id number] [address] [place] [address], [place] [address] 16 Dec, 2012 [facility] [address] [id number] [address] [place] [address], [place] [address] 16 Dec, 2012 [facility] [address] [id number] [address] [place] [address], [place] [address] 15 Dec, 2012 [facility] [address] [id number] [address] [place] [address], [place] [address] 10 Dec, 2012 [facility] [address] [id number] [address] [place] [address], [place] [address] Dec, [facility] [address] [id number] [address] [place] [address], [place] [address] Dec, [facility] [address] [id number] [address] [place] [address], [place] [address] Dec, [facility] [address] [id number] [address] [place] [address], [place] [address] Dec, [facility] [address] [id number] [address] [place] [address], [place] [address] Dec, [facility] [address] [id number] [address] [place] [address], [place] [address] Dec, [facility] [address] [id number] [address] [place] [address], [place] [address] October, [facility] [address] [id number] [address] [place] [address], [place] [address] October, [facility] [address] [id number] [address] [place] [address], [place] [address] October, [facility] [address] [id number] [address] [place] [address], [place] [address] October, [facility] [address] [id number] [address] [place] [address], [place] [address] October, [facility] [address] [id number] [address] [place] [address], [place] [address] October, [facility] [address] [id number] [address] [place] [address], [place] [address] October, [facility] [address] [id number] [address] [place] [address], [place] [address] Oct, [facility] [address] [id number] [address] [place] [address], [place] [address] Oct, [facility] [address] [id number] [address] [place] [address], [place] [address] Oct, [facility] [address] [id number] [address] [place] [address], [place] [address] Oct, [facility] [address] [id number] [address] [place] [address], [place] [address] Oct, [facility] [address] [id number] [address] [place] [address], [place] [address] Oct, [facility] [address] [id number] [address] [place] [address], [place] [address] Oct, [facility] [address] [id number] [address] [place] [address], [place] [address] 15 Oct, 2012 [facility] [address] [id number] [address] [place] [address], [place] [address] Oct, [facility] [address] [id number] [address] [place] [address], [place] [address] Oct, [facility] [address] [id number] [address] [place] [address], [place] [address] Oct, [facility] [address] [id number] [address] [place] [address], [place] [address] Oct, [facility] [address] [id number] [address] [place] [address], [place] [address] Aug, [facility] [address] [id number] [address] [place] [address], [place] [address] Aug, [facility] [address] [id number] [address] [place] [address], [place] [address] Aug, [facility] [address] [id number] [address] [place] [address], [place] [address] 06 Aug, 2012 [facility] [address] [id number] [address] [place] [address], [place] [address] 05 Aug, 2012 [facility] [address] [id number] [address] [place] [address], [place] [address] 05 Aug, 2012 [facility] [address] [id number] [address] [place] [address], [place] [address] 20 Aug, 2012 [facility] [address] [id number] [address] [place] [address], [place] [address] 14 Aug, 2012 [facility] [address] [id number] [address] [place] [address], [place] [address] 12 Aug, 2012 [facility] [address] [id number] [address] [place] [address], [place] [address] Aug, [facility] [address] [id number] [address] [place] [address], [place] [address] 29 Jul, 2012 [facility] [address] [id number] [address] [place] [address], [place] [address] 15 Jul, 2012 [facility] [address] [id number] [address] [place] [address], [place] [address] 08 Jul, 2012 [facility] [address] [id number] [address] [place] [address], [place] [address] Jun, [facility] [address] [id number] [address] [place] [address], [place] [address] 18 Jun, 2012 [facility] [address] [id number] [address] [place] [address], [place] [address] 18 Jun, 2012 [facility] [address] [id number] [address] [place] [address], [place] [address] 18 Jun, 2012 [facility] [address] [id number] [address] [place] [address], [place] [address] 18 Jun, 2012 [facility] [address] [id number] [address] [place] [address], [place] [address] 14 Jun, 2012 [facility] [address] [id number] [address] [place] [address], [place] [address] 14 Jun, 2012 [facility] [address] [id number] [address] [place] [address], [place] [address] 13 Jun, 2012 [facility] [address] [id number] [address] [place] [address], [place] [address] 13 Jun, 2012 [facility] [address] [id number] [address] [place] [address], [place] [address] 11 Jun, 2012 [facility] [address] [id number] [address] [place] [address], [place] [address] 11 Jun, 2012 [facility] [address] [id number] [address] [place] [address], [place] [address] 11 Jun, 2012 [facility] [address] [id number] [address] [place] [address], [place] [address] Jun, [facility] [address] [id number] [address] [place] [address], [place] [address] 07 Jun, 2012 [facility] [address] [id number] [address] [place] [address], [place] [address] 07 Jun, 2012 [facility] [address] [id number] [address] [place] [address], [place] [address] 06 Jun, 2012 [facility] [address] [id number] [address] [place] [address], [place] [address] 06 Jun, 2012 [facility] [address] [id number] [address] [place] [address], [place] [address] Jun, [facility] [address] [id number] [address] [place] [address], [place] [address] Jun, [facility] [address] [id number] [address] [place] [address], [place] [address] 05 Jun, 2012 [facility] [address] [id number] [address] [place] [address], [place] [address] 05 Jun, 2012 [facility] [address] [id number] [address] [place] [address], [place] [address] Jun, [facility] [address] [id number] [address] [place] [address], [place] [address] Jun, [facility] [address] [id number] [address] [place] [address], [place] [address] May, [facility] [address] [id number] [address] [place] [address], [place] [address] May, [facility] [address] [id number] [address] [place] [address], [place] [address] May, [facility] [address] [id number] [address] [place] [address], [place] [address] May, [facility] [address] [id number] [address] [place] [address], [place] [address] May, [facility] [address] [id number] [address] [place] [address], [place] [address] May, [facility] [address] [id number] [address] [place] [address], [place] [address] May, [facility] [address] [id number] [address] [place] [address], [place] [address] May, [facility] [address] [id number] [address] [place] [address], [place] [address] Apr, [facility] [address] [id number] [address] [place] [address], [place] [address] 30 Apr, 2012 [facility] [address] [id number] [address] [place] [address], [place] [address] 29 Apr, 2012 [facility] [address] [id number] [address] [place] [address], [place] [address] Apr, [facility] [address] [id number] [address] [place] [address], [place] [address] Apr, [facility] [address] [id number] [address] [place] [address] Apr, [facility] [address] [id number] [address] [place] [address], [place] [address] Apr, [facility] [address] [id number] [address] [place] [address], [place] [address] Apr, [facility] [address] [id number] [address] [place] [address], [place] [address] Apr, [facility] [address] [id number] [address] [place] [address], [place] [address] Apr, [facility] [address] [id number] [address] [place] [address], [place] [address] Apr, [facility] [address] [id number] [address] [place] [address], [place] [address] Apr, [facility] [address] [id number] [address] [place] [address], [place] [address] Mar, [facility] [address] [id number] [address] [place] [address], [place] [address] 18 Mar, 2012 [facility] [address] [id number] [address] [place] [address], [place] [address] Mar, [facility] [address] [id number] [address] [place] [address], [place] [address] Mar, [facility] [address] [id number] [address] [place] [id number] Mar, [facility] [address] [id number] [address] [place] [id number] Mar, [facility] [address] [id number] [address] [place] [address] Mar, [facility] [address] [id number] [address] [place] [address], [place] [address] Jan, [facility] [address] [id number] [address] [place] [address] Jan, [facility] [address] [id number] [address] [place] [id number] Jan, [facility] [address] [id number] [address] [place] [address], [place] [id number] Jan, [facility] [address] [id number] [address] [place] [address], [place] [address] Jan, [facility] [address] [id number] [address] [place] [address], [place] [address] Jan, [facility] [address] [id number] [address] [place] [address], [place] [address] Jan, [facility] [address] [id number] [address] [place] [address], [place] [address] Jan, [facility] [address] [id number] [address] [place] [address], [place] [address] Jan, [facility] [address] [id number] [address] [place] [address], [place] [address] Jan, [facility] [address] [id number] [address] [place] [address], [place] [address] Jan, [facility] [address] [id number] [address] [place] [address], [place] [address] Dec, [facility] [address] [id number] [address] [place] [address], [place] [address] Dec, [facility] [address] [id number] [address] [place] [address], [place] [address] Dec, [facility] [address] [id number] [address] [place] [address], [place] [address] Dec, [facility] [address] [id number] [address] [place] [address], [place] [address] Dec, [facility] [address] [id number] [address] [place] [address], [place] [address] Dec, [facility] [address] [id number] [address] [place] [address], [place] [address] Dec, [facility] [address] [id number] [address] [place] [address], [place] [address] 17 Jan, 2012 [facility] [address] [id number] [address] [place] [address], [place] [address] 16 Jan, 2012 [facility] [address] [id number] [address] [place] [address], [place] [address] 13 Jan, 2012 [facility] [address] [id number] [address] [place] [address], [place] [address] 13 Jan, 2012 [facility] [address] [id number] [address] [place] [address], [place] [address] 02 Jan, 2012 [facility] [address] [id number] [address] [place] [address], [place] [address] Dec, [facility] [address] [id number] [address] [place] [address], [place] [address] Dec, [facility] [address] [id number] [address] [place] [address], [place] [address] Dec, [facility] [address] [id number] [address] [place] [address], [place] [address] 18 Dec, 2011 [facility] [address] [id number] [address] [place] [address], [place] [address] 15 Dec, 2011 [facility] [address] [id number] [address] [place] [address], [place] [address] 06 Dec, 2011 [facility] [address] [id number] [address] [place] [address], [place] [address] 05 Dec, 2011 [facility] [address] [id number] [address] [place] [address], [place] [address] October, [facility] [address] [id number] [address] [place] [address], [place] [address] October, [facility] [address] [id number] [address] [place] [address], [place] [address] October, [facility] [address] [id number] [address] [place] [address], [place] [address] October, [facility] [address] [id number] [address] [place] [address], [place] [address] October, [facility] [address] [id number] [address] [place] [address], [place] [address] October, [facility] [address] [id number] [address] [place] [address], [place] [address] Oct, [facility] [address] [id number] [address] [place] [address], [place] [address] Oct, [facility] [address] [id number] [address] [place] [address], [place] [address] Oct, [facility] [address] [id number] [address] [place] [address], [place] [address] Oct, [facility] [address] [id number] [address] [place] [address], [place] [address] Oct, [facility] [address] [id number] [address] [place] [address], [place] [address] Oct, [facility] [address] [id number] [address] [place] [address], [place] [address] Oct, [facility] [address] [id number] [address] [place] [address], [place] [address] Aug, [facility] [address] [id number] [address] [place] [address], [place] [address] Aug, [facility] [address] [id number] [address] [place] [address], [place] [address] Aug, [facility] [address] [id number] [address] [place] [address], [place] [address] Aug, [facility] [address] [id number] [address] [place] [address], [place] [address] Aug, [facility] [address] [id number] [address] [place] [address], [place] [address] 05 Sep, 2011 [facility] [address] [id number] [address] [place] [address], [place] [address] Aug, [facility] [address] [id number] [address] [place] [address], [place] [address] Aug, [facility] [address] [id number] [address] [place] [address], [place] [address] 08 Aug, 2011 [facility] [address] [id number] [address] [place] [address], [place] [address] Jul, [facility] [address] [id number] [address] [place] [address], [place] [address] Jul, [facility] [address] [id number] [address] [place] [address], [place] [address] Jul, [facility] [address] [id number] [address] [place] [address], [place] [address] Jul, [facility] [address] [id number] [address] [place] [address], [place] [address] Jun, [facility] [address] [id number] [address] [place] [address], [place] [address] Jun, [facility] [address] [id number] [address] [place] [address], [place] [address] May, [facility] [address] [id number] [address] [place] [address], [place] [address] May, [facility] [address] [id number] [address] [place] [address], [place] [address] May, [facility] [address] [id number] [address] [place] [address], [place] [address] May, [facility] [address] [id number] [address] [place] [address], [place] [address] May, [facility] [address] [id number] [address] [place] [address], [place] [address] Apr, [facility] [address] [id number] [address] [place] [address], [place] [address] Apr, [facility] [address] [id number] [address] [place] [address] 10 Apr, 2011 [facility] [place] [address] [id number] [address] [place] [address] Jan, [facility] [place] [address] [id number] [address] [place] [address] Dec, [facility] [place] [address] [id number] [address] [place] [address] October, [facility] [place] [address] [id number] [address] [place] [address] Jun, [facility] [place] [address] [id number] [address] [place] [address] Apr, [facility] [place] [address] [id number] [address] [place] [address] Apr, [facility] [place] [address] [id number] [address] [place] [address] Apr, [facility] [place] [address] [id number] [address] [place] [address] Jun, IMMUNIZATIONS No Known Immunizations SOCIAL HISTORY Never Assessed REASON FOR VISIT PLAN OF CARE VITAL SIGNS Height 69 in 2014-08-25 Weight 207 lbs 2014-08-25 Temperature 97.6 degrees Fahrenheit 2014-08-25 Heart Rate 104 bpm 2014-08-25 Blood pressure systolic 148 mmHg 2014-08-25 Blood pressure diastolic 98 mmHg 2014-08-25 MEDICATIONS Unknown Medications RESULTS No Results PROCEDURES [...]
--- OUTSIDE RECORDS SUMMARY | 2020-01-25 13:30 | XMS REPORT ---
Author Author Moreno Ana Doctor Organization [facility] Address Unknown Phone Unavailable Care Team Providers Care [employer] Name Role Phone Migration, Doctor Unavailable Unavailable PROBLEMS Type Condition ICD9-CM Code IKR64-TO Code Onset Dates Condition S tatus SNOMED Code Problem Chronic hepatitis C without hepatic coma B18.2 Active 855113391 Problem Cannabis abuse F12.10 Active 55314 009 Problem Bipolar 1 disorder F31.9 Active 3 20866286 Problem Attention deficit hyperactivity disorder (ADHD), combi luciano type F90.2 Active 70006586 Problem Attention deficit R41.840 Active 76 861234 Problem Hot flashes due to menopause N95.1 A ctive 938005022 Problem H/O laminectomy Z98.89 Active 1616 93174 Problem Other chronic pain G89.29 Active 8 6982726 Problem Anxiety disorder, unspecified type F41.9 Active 525892934 Problem Bipolar disorder, in partial remission, most rec ent episode hypomanic F31.71 Active 843699531 ALLERGIES No Information ENCOUNTERS Encounter Location Date Diagnosis [facility] [address] [id number] [address] [place] [id number] Oct, [facility] [address] [facility] [id number] [address] [place] [address] Oct, [facility] [address] [facility] [id number] [address] [place] [address] Aug, [facility] [address] [facility] [id number] [address] [place] [address] Jul, [facility] [address] [facility] [id number] [address] [place] [address] Jul, [facility] [address] [facility] [id number] [address] [place] [address] Apr, [facility] [address] [facility] [id number] [address] [place] [address] Mar, Hot flashes due to menopause N95.1 ; Anxiety disorder, unspecified type F41.9 ; Low back pain M54.5 and Encounter for immunization Z23 [facility] [address] [facility] [id number] [address] [place] [address] Dec, Other chronic pain G89.29 an d Low back pain M54.5 [facility] [address] [facility] [id number] [address] [place] [address] October, [facility] [address] [facility] [id number] [address] [place] [address] October, [facility] [address] [facility] [id number] [address] [place] [address] October, [facility] [address] [facility] [id number] [address] [place] [address] October, Other chronic pain G89.29 an d Chronic hepatitis C without hepatic coma B18.2 [facility] [address] [facility] [id number] [address] [place] [address] Aug, Bipolar disorder, in partial remission, most recent episode hypomanic F31.71 ; Attention deficit hyperactivity disorder (ADHD), combined type F90.2 and Anxiety disorder, unspecified type F41.9 [facility] [address] [facility] [id number] [address] [place] [address] Aug, [facility] [address] [facility] [id number] [address] [place] [address] Aug, Bipolar disorder, in partial remission, most recent episode hypomanic F31.71 [facility] [address] [facility] [id number] [address] [place] [address] Aug, [facility] [address] [facility] [id number] [address] [place] [address] Aug, Bipolar disorder, in partial remission, most recent episode hypomanic F31.71 [facility] [address] [facility] [id number] [address] [place] [address] Aug, Bipolar disorder, in partial remission, most recent episode hypomanic F31.71 ; Attention deficit hyperactivity disorder (ADHD), combined type F90.2 and Anxiety disorder, unspecified type F41.9 [facility] [address] [id number] [address] [place] [address] Aug, Low back pain M54.5 and Pain in left wrist M25.532 [facility] [address] [id number] [address] [place] [address] Aug, [facility] [address] [id number] [address] [place] [address] Jun, [facility] [address] [id number] [address] [place] [address] Apr, Bipolar disorder, in partial remission, most recent episode hypomanic F31.71 [facility] [address] [id number] [address] [place] [address] Apr, [facility] [address] [id number] [address] [place] [address] Apr, Bipolar disorder, in partial remission, most recent episode hypomanic F31.71 ; Attention deficit hyperactivity disorder (ADHD), combined type F90.2 ; Anxiety disorder, unspecified type F41.9 and 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 [facility] [address] [id number] [address] [place] [address] Apr, Bipolar disorder, in partial remission, most recent episode hypomanic F31.71 [facility] [address] [id number] [address] [place] [address] Apr, Bipolar disorder, in partial remission, most recent episode hypomanic F31.71 [facility] [address] [id number] [address] [place] [address] Mar, [facility] [address] [id number] [address] [place] [address] Mar, Bipolar disorder, in partial remission, most recent episode hypomanic F31.71 ; Encounter for immunization Z23 and Low back pain M54.5 [facility] [address] [id number] [address] [place] [address] Mar, Bipolar disorder, in partial remission, most recent episode hypomanic F31.71 [facility] [address] [id number] [address] [place] [address] Mar, Bipolar disorder, in partial remission, most recent episode hypomanic F31.71 [facility] [address] [id number] [address] [place] [address] Jan, Bipolar disorder, in partial remission, most recent episode hypomanic F31.71 [facility] [address] [id number] [address] [place] [address] Jan, Bipolar disorder, in partial remission, most recent episode hypomanic F31.71 [facility] [address] [facility] [id number] [address] [place] [address] Dec, Bipolar disorder, in partial remission, most recent episode hypomanic F31.71 [facility] [address] [id number] [address] [place] [address] Dec, Bipolar disorder, in partial remission, most recent episode hypomanic F31.71 ; Attention deficit hyperactivity disorder (ADHD), combined type F90.2 ; Anxiety disorder, unspecified type F41.9 and Other [place]current[facility] drug therapy Z79.899 [facility] [address] [id number] [address] [place] [address] Dec, Bipolar disorder, in partial remission, most recent episode hypomanic F31.71 [facility] [address] [id number] [address] [place] [address] Dec, Bipolar disorder, in partial remission, most recent episode hypomanic F31.71 [facility] [address] [id number] [address] [place] [address] October, Bipolar disorder, in partial remission, most recent episode hypomanic F31.71 [facility] [address] [id number] [address] [place] [address] October, [facility] [address] [id number] [address] [place] [address] October, [facility] [address] [id number] [address] [place] [address] Oct, Bipolar disorder, in partial remission, most recent episode hypomanic F31.71 ; Attention deficit hyperactivity disorder (ADHD), combined type F90.2 ; Anxiety disorder, unspecified type F41.9 and Encounter for drug screening Z02.83 [facility] [address] [id number] [address] [place] [address] Oct, Bipolar disorder, in partial remission, most recent episode hypomanic F31.71 [facility] [address] [facility] [id number] [address] [place] [address] Oct, Bipolar disorder, in partial remission, most recent episode hypomanic F31.71 [facility] [address] [facility] [id number] [address] [place] [address] Aug, Bipolar disorder, in partial remission, most recent episode hypomanic F31.71 [facility] [address] [facility] [id number] [address] [place] [address] Aug, Bipolar disorder, in partial remission, most recent episode hypomanic F31.71 [facility] [address] [facility] [id number] [address] [place] [address] Aug, Bipolar disorder, in partial remission, most recent episode hypomanic F31.71 [facility] [address] [id number] [address] [place] [address] Jul, Bipolar disorder, in partial remission, most recent episode hypomanic F31.71 ; Attention deficit hyperactivity disorder (ADHD), combined type F90.2 and Anxiety disorder, unspecified type F41.9 [facility] [address] [id number] [address] [place] [address] Jul, Bipolar disorder, in partial remission, most recent episode hypomanic F31.71 [facility] [address] [id number] [address] [place] [address] Jun, Bipolar disorder, in partial remission, most recent episode hypomanic F31.71 [facility] [address] [id number] [address] [place] [address] May, Bipolar disorder, in partial remission, most recent episode hypomanic F31.71 [facility] [address] [id number] [address] [place] [address] May, Bipolar disorder, in partial remission, most recent episode hypomanic F31.71 [facility] [address] [id number] [address] [place] [address] Apr, [facility] [address] [facility] [id number] [address] [place] [address] Apr, Bipolar disorder, in partial remission, most recent episode hypomanic F31.71 ; Attention deficit hyperactivity disorder (ADHD), combined type F90.2 ; Anxiety disorder, unspecified type F41.9 and Cannabis abuse F12.10 [facility] [address] [id number] [address] [place] [address] Apr, Attention deficit hyperactiv ity disorder (ADHD), combined type F90.2 [facility] [address] [facility] [id number] [address] [place] [address] Mar, Attention deficit hyperactiv ity disorder (ADHD), combined type F90.2 [facility] [address] [facility] [id number] [address] [place] [address] 14 Mar, 2017 Anxiety disorder, unspecifie d type F41.9 [facility] [address] [facility] [id number] [address] [place] [address] 18 Jan, 2017 Attention deficit hyperactiv ity disorder (ADHD), combined type F90.2 [facility] [address] [facility] [id number] [address] [place] [address] 16 Jan, 2017 Anxiety disorder, unspecifie d type F41.9 [place] [address] [facility] [id number] [address] [place] [address] Jan, Other chronic pain G89.29 ; Chronic hepatitis C without hepatic coma B18.2 and Bipolar 1 disorder F31.9 [facility] [address] [facility] [id number] [address] [place] [address] Dec, Attention deficit hyperactiv ity disorder (ADHD), combined type F90.2 [facility] [address] [facility] [id number] [address] [place] [address] Dec, Bipolar disorder, in partial remission, most recent episode hypomanic F31.71 ; Attention deficit hyperactivity disorder (ADHD), combined type F90.2 and Anxiety disorder, unspecified type F41.9 [place] [address] [facility] [id number] [address] [place] [address] Dec, Bipolar disorder, in partial remission, most recent episode hypomanic F31.71 ; Attention deficit hyperactivity disorder (ADHD), combined type F90.2 and Anxiety disorder, unspecified type F41.9 [facility] [address] [place] [id number] [address] [place] [address] Dec, Bipolar 1 disorder F31.9 and Attention deficit R41.840 [place] [address] [place] [id number] [address] [place] [address] Oct, Other chronic pain G89.29 ; Alopecia L65.9 and Screening, lipid Z13.220 [place] [address] [facility] [id number] [address] [place] [address] Oct, [place] [address] [place] [id number] [address] [place] [address] Aug, [place] [address] [place] [id number] [address] [place] [address] Aug, Eustachian tube dysfunction, right H69.81 ; Vertigo R42 and Other chronic pain G89.29 [place] [address] [place] [id number] [address] [place] [address] Aug, [facility] [address] [id number] [address] [place] [address] Jun, [facility] [address] [id number] [address] [place] [address] Jun, Low back pain M54.5 and Othe r chronic pain G89.29 [facility] [address] [id number] [address] [place] [address] Jun, [facility] [address] [id number] [address] [place] [address] May, [facility] [address] [id number] [address] [place] [address] Jan, [facility] [address] [id number] [address] [place] [address] Dec, [facility] [address] [id number] [address] [place] [address] Dec, [facility] [address] [id number] [address] [place] [address] Jun, [facility] [address] [id number] [address] [place] [address] Apr, Eustachian tube dysfunction, unspecified laterality H69.80 ; Hot flashes N95.1 and Encounter for immunization Z23 [facility] [address] [id number] [address] [place] [address] Jan, [facility] [address] [id number] [address] [place] [address] Jan, [facility] [address] [id number] [address] [place] [address] Jan, [facility] [address] [facility] [id number] [address] [place] [address] Jan, [facility] [address] [id number] [address] [place] [address] Jan, Encounter to establish care V65.8 ; Bipolar 1 disorder 296.7 ; Abdominal pain 789.00 ; Constipation 564.00 ; Hard of hearing 389.9 and Drug abuse 305.90 [facility] [address] [id number] [address] [place] [address] Dec, [facility] [address] [facility] [id number] [address] [place] [id number] October, [facility] [address] [id number] [address] [place] [address] October, [facility] [address] [id number] [address] [place] [address] Oct, [facility] [address] [id number] [address] [place] [address] Oct, [facility] [address] [facility] [id number] [address] [place] [address] Oct, [facility] [address] [id number] [address] [place] [address] Aug, [facility] [address] [id number] [address] [place] [address] Aug, [facility] [address] [facility] [id number] [address] [place] [address] Aug, [facility] [address] [id number] [address] [place] [address] Aug, [facility] [address] [id number] [address] [place] [address] Aug, [facility] [address] [id number] [address] [place] [address] Aug, [facility] [address] [id number] [address] [place] [address] Aug, [facility] [address] [id number] [address] [place] [address] Aug, [facility] [address] [id number] [address] [place] [address], [place] [address] Aug, 2014 [facility] [address] [id number] [address] [place] [address], [place] [address] Aug, 2014 [facility] [address] [id number] [address] [place] [address], [place] [address] Aug, 2014 [facility] [address] [id number] [address] [place] [address], [place] [address] Aug, 2014 [facility] [address] [id number] [address] [place] [address], [place] [address] Aug, 2014 [facility] [address] [id number] [address] [place] [address], [place] [address] Aug, 2014 [facility] [address] [id number] [address] [place] [address], [place] [address] Aug, [facility] [address] [id number] [address] [place] [address], [place] [address] Jul, [facility] [address] [id number] [address] [place] [address], [place] [address] Jul, [facility] [address] [id number] [address] [place] [address], [place] [address] Jul, [facility] [address] [id number] [address] [place] [address], [place] [address] Jul, [facility] [address] [id number] [address] [place] [address], [place] [address] Jul, [facility] [address] [id number] [address] [place] [address], [place] [address] Jul, [facility] [address] [id number] [address] [place] [address], [place] [address] Jul, [facility] [address] [id number] [address] [place] [address], [place] [address] Jul, [facility] [address] [id number] [address] [place] [address], [place] [address] Jun, [facility] [address] [id number] [address] [place] [address], [place] [address] Jun, [facility] [address] [id number] [address] [place] [address], [place] [address] Jun, [facility] [address] [id number] [address] [place] [address], [place] [address] Jun, [facility] [address] [id number] [address] [place] [address], [place] [address] Jun, [facility] [address] [id number] [address] [place] [address], [place] [address] Jun, [facility] [address] [id number] [address] [place] [address], [place] [address] Jun, [facility] [address] [id number] [address] [place] [address], [place] [address] Jun, [facility] [address] [id number] [address] [place] [address], [place] [address] Jun, [facility] [address] [id number] [address] [place] [address], [place] [address] Jun, [facility] [address] [id number] [address] [place] [address], [place] [address] Jun, [facility] [address] [id number] [address] [place] [address], [place] [address] May, [facility] [address] [id number] [address] [place] [address], [place] [address] May, [facility] [address] [id number] [address] [place] [address], [place] [address] May, [facility] [address] [id number] [address] [place] [address], [place] [address] May, [facility] [address] [id number] [address] [place] [address], [place] [address] May, [facility] [address] [id number] [address] [place] [address], [place] [address] May, [facility] [address] [id number] [address] [place] [address], [place] [address] May, [facility] [address] [id number] [address] [place] [address], [place] [address] Apr, [facility] [address] [id number] [address] [place] [address], [place] [address] Apr, [facility] [address] [id number] [address] [place] [address], [place] [address] Apr, [facility] [address] [id number] [address] [place] [address], [place] [address] Apr, [facility] [address] [id number] [address] [place] [address], [place] [address] Apr, [facility] [address] [id number] [address] [place] [address], [place] [address] Apr, [facility] [address] [id number] [address] [place] [address], [place] [address] Mar, [facility] [address] [id number] [address] [place] [address], [place] [address] Mar, [facility] [address] [id number] [address] [place] [address], [place] [address] Mar, [facility] [address] [id number] [address] [place] [address], [place] [address] Mar, [facility] [address] [id number] [address] [place] [address], [place] [address] Mar, [facility] [address] [id number] [address] [place] [address], [place] [address] Mar, [facility] [address] [id number] [address] [place] [address], [place] [address] Jan, [facility] [address] [id number] [address] [place] [address], [place] [address] Jan, [facility] [address] [id number] [address] [place] [address], [place] [address] Jan, [facility] [address] [id number] [address] [place] [address], [place] [address] Jan, [facility] [address] [id number] [address] [place] [address], [place] [address] Dec, [facility] [address] [id number] [address] [place] [address], [place] [address] Dec, [facility] [address] [id number] [address] [place] [address], [place] [id number] Dec, [facility] [address] [id number] [address] [place] [address], [place] [id number] Dec, [facility] [address] [id number] [address] [place] [address], [place] [id number] Dec, [facility] [address] [id number] [address] [place] [address], [place] [id number] Dec, [facility] [address] [id number] [address] [place] [address], [place] [id number] Dec, [facility] [address] [id number] [address] [place] [address], [place] [id number] Dec, [facility] [address] [id number] [address] [place] [address], [place] [address] Dec, [facility] [address] [id number] [address] [place] [address], [place] [address] Dec, [facility] [address] [id number] [address] [place] [address], [place] [address] Dec, [facility] [address] [id number] [address] [place] [address], [place] [id number] Dec, [facility] [address] [id number] [address] [place] [address], [place] [id number] October, [facility] [address] [id number] [address] [place] [address], [place] [address] October, [facility] [address] [id number] [address] [place] [address], [place] [id number] October, [facility] [address] [id number] [address] [place] [address], [place] [address] October, [facility] [address] [id number] [address] [place] [address], [place] [id number] October, [facility] [address] [id number] [address] [place] [address], [place] [address] October, [facility] [address] [id number] [address] [place] [address], [place] [address] Oct, [facility] [address] [id number] [address] [place] [address], [place] [address] Oct, [facility] [address] [id number] [address] [place] [address], [place] [address] Oct, [facility] [address] [id number] [address] [place] [address], [place] [address] Oct, [facility] [address] [id number] [address] [place] [address], [place] [address] Oct, [facility] [address] [id number] [address] [place] [address], [place] [address] Oct, [facility] [address] [id number] [address] [place] [address], [place] [address] Oct, [facility] [address] [id number] [address] [place] [address], [place] [address] Oct, [facility] [address] [id number] [address] [place] [address], [place] [address] Oct, [facility] [address] [id number] [address] [place] [address], [place] [address] Oct, [facility] [address] [id number] [address] [place] [address], [place] [address] Oct, [facility] [address] [id number] [facility] [place] [address] 08 Oct, 2013 [facility] [address] [id number] [facility] [place] [address] 15 Aug, 2013 [facility] [address] [id number] [facility] [place] [address] 15 Aug, 2013 [facility] [address] [id number] [address] [place] [address], [place] [address] Aug, [facility] [address] [id number] [address] [place] [address], [place] [address] Aug, [facility] [address] [id number] [address] [place] [address], [place] [address] Aug, [facility] [address] [id number] [address] [place] [address], [place] [address] Aug, [facility] [address] [id number] [address] [place] [address], [place] [address] Aug, [facility] [address] [id number] [address] [place] [address], [place] [address] Aug, [facility] [address] [id number] [address] [place] [address], [place] [address] Aug, [facility] [address] [id number] [address] [place] [address], [place] [address] Aug, [facility] [address] [id number] [address] [place] [address], [place] [address] Aug, [facility] [address] [id number] [address] [place] [address], [place] [address] Aug, [facility] [address] [id number] [address] [place] [address], [place] [address] Aug, [facility] [address] [id number] [address] [place] [address], [place] [address] Aug, [facility] [address] [id number] [address] [place] [address], [place] [address] 14 Aug, 2013 [facility] [address] [id number] [address] [place] [address], [place] [address] 14 Aug, 2013 [facility] [address] [id number] [address] [place] [address], [place] [address] 14 Aug, 2013 [facility] [address] [id number] [address] [place] [address], [place] [address] 14 Aug, 2013 [facility] [address] [id number] [address] [place] [address], [place] [address] 07 Aug, 2013 [facility] [address] [id number] [address] [place] [address], [place] [address] 07 Aug, 2013 [facility] [address] [id number] [address] [place] [address], [place] [address] 06 Aug, 2013 [facility] [address] [id number] [address] [place] [address], [place] [address] 06 Aug, 2013 [facility] [address] [id number] [address] [place] [address], [place] [address] 04 Aug, 2013 [facility] [address] [id number] [address] [place] [address], [place] [address] 04 Aug, 2013 [facility] [address] [id number] [address] [place] [address], [place] [address] Aug, [facility] [address] [id number] [address] [place] [address], [place] [address] Jul, [facility] [address] [id number] [address] [place] [address], [place] [address] Jul, [facility] [address] [id number] [address] [place] [address], [place] [address] Jul, [facility] [address] [id number] [address] [place] [address], [place] [address] Jul, [facility] [address] [id number] [address] [place] [address], [place] [address] Jul, [facility] [address] [id number] [address] [place] [address], [place] [address] Jul, [facility] [address] [id number] [address] [place] [address], [place] [address] Jul, [facility] [address] [id number] [address] [place] [address], [place] [address] Jul, [facility] [address] [id number] [address] [place] [address], [place] [address] Jul, [facility] [address] [id number] [address] [place] [address], [place] [address] Jul, [facility] [address] [id number] [address] [place] [address], [place] [address] Jul, [facility] [address] [id number] [address] [place] [address], [place] [address] Jul, [facility] [address] [id number] [address] [place] [address], [place] [address] Jul, [facility] [address] [id number] [address] [place] [address], [place] [address] Jul, [facility] [address] [id number] [address] [place] [address], [place] [address] Jul, [facility] [address] [id number] [address] [place] [address], [place] [address] Jul, [facility] [address] [id number] [address] [place] [address], [place] [address] Jul, [facility] [address] [id number] [address] [place] [address], [place] [address] Jul, [facility] [address] [id number] [address] [place] [address], [place] [address] Jul, [facility] [address] [id number] [address] [place] [address], [place] [address] Jul, [facility] [address] [id number] [address] [place] [address], [place] [address] 31 Jun, 2013 [facility] [address] [id number] [address] [place] [address], [place] [address] 31 Jun, 2013 [facility] [address] [id number] [address] [place] [address], [place] [address] Jun, [facility] [address] [id number] [address] [place] [address], [place] [address] Jun, [facility] [address] [id number] [address] [place] [address], [place] [address] Jun, [facility] [address] [id number] [address] [place] [address], [place] [address] Jun, [facility] [address] [id number] [address] [place] [address], [place] [address] Jun, [facility] [address] [id number] [address] [place] [address], [place] [address] Jun, [facility] [address] [id number] [address] [place] [address], [place] [address] Jun, [facility] [address] [id number] [address] [place] [address], [place] [address] Jun, [facility] [address] [id number] [address] [place] [address], [place] [address] Jun, [facility] [address] [id number] [address] [place] [address], [place] [address] Jun, [facility] [address] [id number] [address] [place] [address], [place] [address] Jun, [facility] [address] [id number] [address] [place] [address], [place] [address] Jun, [facility] [address] [id number] [address] [place] [address], [place] [address] Jun, [facility] [address] [id number] [address] [place] [address], [place] [address] 18 Jun, 2013 [facility] [address] [id number] [address] [place] [address], [place] [address] 18 Jun, 2013 [facility] [address] [id number] [address] [place] [address], [place] [address] 17 Jun, 2013 [facility] [address] [id number] [address] [place] [address], [place] [address] 17 Jun, 2013 [facility] [address] [id number] [address] [place] [address], [place] [address] 13 Jun, 2013 [facility] [address] [id number] [address] [place] [address], [place] [address] 12 Jun, 2013 [facility] [address] [id number] [address] [place] [address], [place] [address] 12 Jun, 2013 [facility] [address] [id number] [address] [place] [address], [place] [address] 09 Jun, 2013 [facility] [address] [id number] [address] [place] [address], [place] [address] 05 Jun, 2013 [facility] [address] [id number] [address] [place] [address], [place] [address] 05 Jun, 2013 [facility] [address] [id number] [address] [place] [address], [place] [address] 04 Jun, 2013 [facility] [address] [id number] [address] [place] [address], [place] [address] 04 Jun, 2013 [facility] [address] [id number] [address] [place] [address], [place] [address] May, [facility] [address] [id number] [address] [place] [address], [place] [address] 17 May, 2013 [facility] [address] [id number] [address] [place] [address], [place] [address] May, [facility] [address] [id number] [address] [place] [address], [place] [address] May, [facility] [address] [id number] [address] [place] [address] [address] May, [facility] [address] [id number] [address] [place] [address], [place] [address] May, [facility] [address] [id number] [address] [place] [address], [place] [address] Apr, [facility] [address] [id number] [address] [place] [address], [place] [address] Apr, [facility] [address] [id number] [address] [place] [address], [place] [address] Apr, [facility] [address] [id number] [address] [place] [address], [place] [address] Apr, [facility] [address] [id number] [address] [place] [address], [place] [address] Apr, [facility] [address] [id number] [address] [place] [address], [place] [address] Apr, [facility] [address] [id number] [address] [place] [address], [place] [address] 15 Apr, 2013 [facility] [address] [id number] [address] [place] [address], [place] [address] Apr, [facility] [address] [id number] [address] [place] [address] 26 Mar, 2013 [facility] [address] [id number] [address] [place] [address] 24 Sep, 2012 [facility] [address] [id number] [address] [place] [address] 17 Sep, 2012 [facility] [address] [id number] [address] [place] [address], [place] [address] 17 Sep, 2012 [facility] [address] [id number] [address] [place] [address] 11 Sep, 2012 [facility] [address] [id number] [address] [place] [address], [place] [address] 10 Mar, 2012 [facility] [address] [id number] [address] [place] [address], [place] [address] 05 Mar, 2013 [facility] [address] [id number] [address] [place] [address], [place] [address] 04 Mar, 2013 [facility] [address] [id number] [address] [place] [address], [place] [address] Jan, [facility] [address] [id number] [address] [place] [address], [place] [address] Jan, [facility] [address] [id number] [address] [place] [address], [place] [address] Jan, [facility] [address] [id number] [address] [place] [address], [place] [address] Jan, [facility] [address] [id number] [address] [place] [address], [place] [address] Jan, [facility] [address] [id number] [address] [place] [address], [place] [address] Jan, [facility] [address] [id number] [address] [place] [address], [place] [address] Dec, [facility] [address] [id number] [address] [place] [address], [place] [address] 24 Dec, 2012 [facility] [address] [id number] [address] [place] [address], [place] [address] Dec, [facility] [address] [id number] [address] [place] [address], [place] [address] Dec, [facility] [address] [id number] [address] [place] [address], [place] [address] 18 Dec, 2012 [facility] [address] [id number] [address] [place] [address], [place] [address] 17 Dec, 2012 [facility] [address] [id number] [address] [place] [address], [place] [address] 16 Dec, 2012 [facility] [address] [id number] [address] [place] [address], [place] [address] 16 Dec, 2012 [facility] [address] [id number] [address] [place] [address], [place] [address] 15 Dec, 2012 [facility] [address] [id number] [address] [place] [address], [place] [address] Dec, [facility] [address] [id number] [address] [place] [address], [place] [address] Dec, [facility] [address] [id number] [address] [place] [address], [place] [address] Dec, [facility] [address] [id number] [address] [place] [address], [place] [address] Dec, [facility] [address] [id number] [address] [place] [address], [place] [address] Dec, [facility] [address] [id number] [address] [place] [address], [place] [address] Dec, [facility] [address] [id number] [address] [place] [address], [place] [address] Dec, [facility] [address] [id number] [address] [place] [address], [place] [address] October, [facility] [address] [id number] [address] [place] [address], [place] [address] October, [facility] [address] [id number] [address] [place] [address], [place] [address] October, [facility] [address] [id number] [address] [place] [address], [place] [address] October, [facility] [address] [id number] [address] [place] [address], [place] [address] October, [facility] [address] [id number] [address] [place] [address], [place] [address] October, [facility] [address] [id number] [address] [place] [address], [place] [address] October, [facility] [address] [id number] [address] [place] [address], [place] [address] 29 Oct, 2012 [facility] [address] [id number] [address] [place] [address], [place] [address] Oct, [facility] [address] [id number] [address] [place] [address], [place] [address] 24 Oct, 2012 [facility] [address] [id number] [address] [place] [address], [place] [address] Oct, [facility] [address] [id number] [address] [place] [address], [place] [address] Oct, [facility] [address] [id number] [address] [place] [address], [place] [address] 18 Oct, 2012 [facility] [address] [id number] [address] [place] [address], [place] [address] 17 Oct, 2012 [facility] [address] [id number] [address] [place] [address], [place] [address] 15 Oct, 2012 [facility] [address] [id number] [address] [place] [address], [place] [address] Oct, [facility] [address] [id number] [address] [place] [address], [place] [address] Oct, [facility] [address] [id number] [address] [place] [address], [place] [address] Oct, [facility] [address] [id number] [address] [place] [address], [place] [address] Oct, [facility] [address] [id number] [address] [place] [address], [place] [address] Aug, [facility] [address] [id number] [address] [place] [address], [place] [address] Aug, [facility] [address] [id number] [address] [place] [address], [place] [address] Aug, [facility] [address] [id number] [address] [place] [address], [place] [address] Aug, [facility] [address] [id number] [address] [place] [address], [place] [address] 05 Aug, 2012 [facility] [address] [id number] [address] [place] [address], [place] [address] 05 Aug, 2012 [facility] [address] [id number] [address] [place] [address], [place] [address] 20 Aug, 2012 [facility] [address] [id number] [address] [place] [address], [place] [address] 14 Aug, 2012 [facility] [address] [id number] [address] [place] [address], [place] [address] 12 Aug, 2012 [facility] [address] [id number] [address] [place] [address], [place] [address] 11 Aug, 2012 [facility] [address] [id number] [address] [place] [address], [place] [address] 29 Jul, 2012 [facility] [address] [id number] [address] [place] [address], [place] [address] 15 Jul, 2012 [facility] [address] [id number] [address] [place] [address], [place] [id number] 08 Jul, 2012 [facility] [address] [id number] [address] [place] [address], [place] [id number] 20 Jun, 2012 [facility] [address] [id number] [address] [place] [address], [place] [id number] 18 Jun, 2012 [facility] [address] [id number] [address] [place] [address], [place] [id number] 18 Jun, 2012 [facility] [address] [id number] [address] [place] [address], [place] [id number] 18 Jun, 2012 [facility] [address] [id number] [address] [place] [address], [place] [id number] 18 Jun, 2012 [facility] [address] [id number] [address] [place] [address], [place] [address] 14 Jun, 2012 [facility] [address] [id number] [address] [place] [address] [address] 14 Jun, 2012 [facility] [address] [id number] [address] [place] [address], [place] [id number] 13 Jun, 2012 [facility] [address] [id number] [address] [place] [address], [place] [id number] 13 Jun, 2012 [facility] [address] [id number] [address] [place] [address], [place] [address] 11 Jun, 2012 [facility] [address] [id number] [address] [place] [address], [place] [address] 11 Jun, 2012 [facility] [address] [id number] [address] [place] [address], [place] [address] Jun, [facility] [address] [id number] [address] [place] [address], [place] [address] Jun, [facility] [address] [id number] [address] [place] [address], [place] [address] 07 Jun, 2012 [facility] [address] [id number] [address] [place] [address], [place] [address] 07 Jun, 2012 [facility] [address] [id number] [address] [place] [address], [place] [address] Jun, [facility] [address] [id number] [address] [place] [address], [place] [id number] 06 Jun, 2012 [facility] [address] [id number] [address] [place] [address], [place] [id number] Jun, [facility] [address] [id number] [address] [place] [address], [place] [address] Jun, [facility] [address] [id number] [address] [place] [address], [place] [address] Jun, [facility] [address] [id number] [address] [place] [address], [place] [id number] 05 Jun, 2012 [facility] [address] [id number] [address] [place] [address], [place] [id number] Jun, [facility] [address] [id number] [address] [place] [address], [place] [address] Jun, [facility] [address] [id number] [address] [place] [address], [place] [address] May, [facility] [address] [id number] [address] [place] [address], [place] [address] May, [facility] [address] [id number] [address] [place] [address], [place] [address] May, [facility] [address] [id number] [address] [place] [address], [place] [address] May, [facility] [address] [id number] [address] [place] [address], [place] [address] May, [facility] [address] [id number] [address] [place] [address], [place] [address] May, [facility] [address] [id number] [address] [place] [address], [place] [address] May, [facility] [address] [id number] [address] [place] [address], [place] [address] May, [facility] [address] [id number] [address] [place] [address], [place] [id number] Apr, [facility] [address] [id number] [address] [place] [address], [place] [address] Apr, [facility] [address] [id number] [address] [place] [address], [place] [address] 29 Apr, 2012 [facility] [address] [id number] [address] [place] [id number] Apr, [facility] [address] [id number] [address] [place] [address], [place] [address] Apr, [facility] [address] [id number] [address] [place] [address], [place] [address] Apr, [facility] [address] [id number] [address] [place] [id number] Apr, [facility] [address] [id number] [address] [place] [address], [place] [address] Apr, [facility] [address] [id number] [address] [place] [address], [place] [address] Apr, [facility] [address] [id number] [address] [place] [address], [place] [address] Apr, [facility] [address] [id number] [address] [place] [address], [place] [address] Apr, [facility] [address] [id number] [address] [place] [address], [place] [address] Apr, [facility] [address] [id number] [address] [place] [address], [place] [address] Mar, [facility] [address] [id number] [address] [place] [address], [place] [address] 18 Mar, 2012 [facility] [address] [id number] [address] [place] [id number] Mar, [facility] [address] [id number] [address] [place] [address], [place] [id number] Mar, [facility] [address] [id number] [address] [place] [id number] Mar, [facility] [address] [id number] [address] [place] [id number] Mar, [facility] [address] [id number] [address] [place] [id number] Mar, [facility] [address] [id number] [address] [place] [id number] Jan, [facility] [address] [id number] [address] [place] [id number] Jan, [facility] [address] [id number] [address] [place] [id number] Jan, [facility] [address] [id number] [address] [place] [address] [id number] Jan, [facility] [address] [id number] [address] [place] [address], [place] [address] Jan, [facility] [address] [id number] [address] [place] [address], [place] [address] Jan, [facility] [address] [id number] [address] [place] [address], [place] [address] Jan, [facility] [address] [id number] [address] [place] [address], [place] [address] Jan, [facility] [address] [id number] [address] [place] [address], [place] [address] Jan, [facility] [address] [id number] [address] [place] [address], [place] [address] Jan, [facility] [address] [id number] [address] [place] [address], [place] [id number] Jan, [facility] [address] [id number] [address] [place] [address], [place] [address] Dec, [facility] [address] [id number] [address] [place] [address], [place] [address] Dec, [facility] [address] [id number] [address] [place] [address], [place] [id number] Dec, [facility] [address] [id number] [address] [place] [address], [place] [address] Dec, [facility] [address] [id number] [address] [place] [address], [place] [id number] Dec, [facility] [address] [id number] [address] [place] [address], [place] [address] Dec, [facility] [address] [id number] [address] [place] [address], [place] [address] Dec, [facility] [address] [id number] [address] [place] [address], [place] [address] Dec, [facility] [address] [id number] [address] [place] [address], [place] [id number] 16 Jan, 2012 [facility] [address] [id number] [address] [place] [address], [place] [id number] 13 Jan, 2012 [facility] [address] [id number] [address] [place] [address], [place] [address] 13 Jan, 2012 [facility] [address] [id number] [address] [place] [address], [place] [address] Dec, [facility] [address] [id number] [address] [place] [address], [place] [address] Dec, [facility] [address] [id number] [address] [place] [address], [place] [address] Dec, [facility] [address] [id number] [address] [place] [address], [place] [address] Dec, [facility] [address] [id number] [address] [place] [address], [place] [address] Dec, [facility] [address] [id number] [address] [place] [address], [place] [address] Dec, [facility] [address] [id number] [address] [place] [address], [place] [address] Dec, [facility] [address] [id number] [address] [place] [address], [place] [id number] Dec, [facility] [address] [id number] [address] [place] [address], [place] [address] October, [facility] [address] [id number] [address] [place] [address], [place] [address] October, [facility] [address] [id number] [address] [place] [address], [place] [address] October, [facility] [address] [id number] [address] [place] [address], [place] [address] October, [facility] [address] [id number] [address] [place] [address], [place] [address] October, [facility] [address] [id number] [address] [place] [address], [place] [address] October, [facility] [address] [id number] [address] [place] [address], [place] [address] Oct, [facility] [address] [id number] [address] [place] [address], [place] [address] Oct, [facility] [address] [id number] [address] [place] [address], [place] [address] Oct, [facility] [address] [id number] [address] [place] [address], [place] [address] Oct, [facility] [address] [id number] [address] [place] [address], [place] [address] Oct, [facility] [address] [id number] [address] [place] [address], [place] [address] Oct, [facility] [address] [id number] [address] [place] [address], [place] [address] Oct, [facility] [address] [id number] [address] [place] [address], [place] [address] Aug, [facility] [address] [id number] [address] [place] [address], [place] [address] Aug, [facility] [address] [id number] [address] [place] [address], [place] [address] Aug, [facility] [address] [id number] [address] [place] [address], [place] [address] Aug, [facility] [address] [id number] [address] [place] [address], [place] [id number] Aug, [facility] [address] [id number] [address] [place] [address], [place] [address] Aug, [facility] [address] [id number] [address] [place] [address], [place] [address] Aug, [facility] [address] [id number] [address] [place] [address], [place] [address] Aug, [facility] [address] [id number] [address] [place] [address], [place] [address] Aug, [facility] [address] [id number] [address] [place] [address], [place] [address] Jul, [facility] [address] [id number] [address] [place] [address], [place] [address] Jul, [facility] [address] [id number] [address] [place] [address], [place] [address] Jul, [facility] [address] [id number] [address] [place] [address], [place] [address] Jul, [facility] [address] [id number] [address] [place] [address], [place] [address] Jun, [facility] [address] [id number] [address] [place] [address], [place] [address] Jun, [facility] [address] [id number] [address] [place] [address], [place] [address] May, [facility] [address] [id number] [address] [place] [address], [place] [address] May, [facility] [address] [id number] [address] [place] [address], [place] [address] May, [facility] [address] [id number] [address] [place] [address], [place] [address] May, [facility] [address] [id number] [address] [place] [address], [place] [address] May, [facility] [address] [id number] [address] [place] [address], [place] [address] 28 Apr, 2011 [facility] [address] [id number] [address] [place] [address], [place] [address] 28 Apr, 2011 [facility] [address] [id number] [address] [place] [address], [place] [address] 10 Apr, 2011 [facility] [address] [id number] [address] [place] [id number] Jan, [facility] [address] [id number] [address] [place] [id number] Dec, [facility] [address] [id number] [address] [place] [id number] October, [facility] [address] [facility] [id number] [address] [place] [id number] Jun, [facility] [address] [id number] [address] [place] [id number] Apr, [facility] [address] [facility] [id number] [address] [place] [id number] Apr, [facility] [address] [facility] [id number] [address] [place] [id number] Apr, [facility] [address] [facility] [id number] [address] [place] [id number] Jun, IMMUNIZATIONS No Known Immunizations SOCIAL HISTORY [...]
--- OUTSIDE RECORDS SUMMARY | 2020-01-25 13:31 | XMS REPORT ---
Author Author Ana Brannon [facility] Address [address] [place] [address] Care Team Providers Care Mixer Foam Rubber Name Role Phone daisyANEUDY Landon Unavailable PROBLEMS Type Condition ICD9-CM Code [id number] Code Onset Dates Condition S tatus SNOMED Code Problem Chronic hepatitis C without hepatic coma B18.2 Active 382064615 Problem Cannabis abuse F12.10 Active 53556 009 Problem Bipolar 1 disorder F31.9 Active 3 55397823 Problem Attention deficit hyperactivity disorder (ADHD), combi luciano type F90.2 Active 39905366 Problem Attention deficit R41.840 Active 76 557234 Problem Hot flashes due to menopause N95.1 A ctive 360418565 Problem H/O laminectomy Z98.89 Active 1616 51035 Problem Other chronic pain G89.29 Active 8 3669450 Problem Anxiety disorder, unspecified type F41.9 Active 371961781 Problem Bipolar disorder, in partial remission, most rec ent episode hypomanic F31.71 Active [id number] ALLERGIES No Information ENCOUNTERS Encounter Location Date Diagnosis [facility] [place] [address] [facility] [id number] [address] [place] [phone] Aug, [facility] [place] [address] [facility] [id number] [address] [place] [address] Jul, [facility] [place] [address] [facility] [id number] [address] [place] [address] Jul, [facility] [place] [address] [facility] [id number] [address] [place] [phone] Apr, [facility] [place] [address] [facility] [id number] [address] [place] [address] Mar, Hot flashes due to menopause N95.1 ; Anxiety disorder, unspecified type F41.9 ; Low back pain M54.5 and Encounter for immunization Z23 [facility] [place] [address] [id number] [address] [place] [address] Dec, Other chronic pain G89.29 an d Low back pain M54.5 [facility] [place] [address] [id number] [address] [place] [phone] October, [facility] [place] [address] [facility] [id number] [address] [place] [address] October, [facility] [place] [address] [id number] [address] [place] [address] October, [facility] [place] [address] [facility] [id number] [address] [place] [address] October, Other chronic pain G89.29 an d Chronic hepatitis C without hepatic coma B18.2 [facility] [place] [address] [facility] [id number] [address] [place] [address] Aug, Bipolar disorder, in partial remission, most recent episode hypomanic F31.71 ; Attention deficit hyperactivity disorder (ADHD), combined type F90.2 and Anxiety disorder, unspecified type F41.9 [facility] [place] [address] [id number] [address] [place] [phone] Aug, [facility] [place] [address] [facility] [id number] [address] [place] [phone] Aug, Bipolar disorder, in partial remission, most recent episode hypomanic F31.71 [facility] [place] [address] [facility] [id number] [address] [place] [address] Aug, [facility] [place] [address] [id number] [address] [place] [phone] Aug, Bipolar disorder, in partial remission, most recent episode hypomanic F31.71 [facility] [place] [address] [id number] [address] [place] [address] Aug, Bipolar disorder, in partial remission, most recent episode hypomanic F31.71 ; Attention deficit hyperactivity disorder (ADHD), combined type F90.2 and Anxiety disorder, unspecified type F41.9 [facility] [place] [address] [id number] [address] [place] [address] Aug, Low back pain M54.5 and Pain in left wrist M25.532 [facility] [place] [address] [id number] [address] [place] [phone] Aug, [facility] [place] [address] [id number] [address] [place] [address] Jun, [facility] [place] [address] [id number] [address] [place] [address] Apr, Bipolar disorder, in partial remission, most recent episode hypomanic F31.71 [facility] [place] [address] [id number] [address] [place] [address] Apr, [facility] [place] [address] [id number] [address] [place] [address] Apr, Bipolar disorder, in partial remission, most recent episode hypomanic F31.71 ; Attention deficit hyperactivity disorder (ADHD), combined type F90.2 ; Anxiety disorder, unspecified type F41.9 and 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 [facility] [place] [address] [id number] [address] [place] [id number] Apr, Bipolar disorder, in partial remission, most recent episode hypomanic F31.71 [facility] [place] [address] [id number] [address] [place] [address] Apr, Bipolar disorder, in partial remission, most recent episode hypomanic F31.71 [facility] [place] [address] [id number] [address] [place] [phone] Mar, [facility] [place] [address] [id number] [address] [place] [address] Mar, Bipolar disorder, in partial remission, most recent episode hypomanic F31.71 ; Encounter for immunization Z23 and Low back pain M54.5 [facility] [place] [address] [id number] [address] [place] [phone] Mar, Bipolar disorder, in partial remission, most recent episode hypomanic F31.71 [facility] [place] [address] [id number] [address] [place] [address] Mar, Bipolar disorder, in partial remission, most recent episode hypomanic F31.71 [facility] [place] [address] [id number] [address] [place] [address] Jan, Bipolar disorder, in partial remission, most recent episode hypomanic F31.71 [facility] [place] [address] [id number] [address] [place] [address] Jan, Bipolar disorder, in partial remission, most recent episode hypomanic F31.71 [facility] [place] [address] [id number] [address] [place] [address] Dec, Bipolar disorder, in partial remission, most recent episode hypomanic F31.71 [facility] [place] [address] [facility] [id number] [address] [place] [address] Dec, Bipolar disorder, in partial remission, most recent episode hypomanic F31.71 ; Attention deficit hyperactivity disorder (ADHD), combined type F90.2 ; Anxiety disorder, unspecified type F41.9 and 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 [facility] [place] [address] [facility] [id number] [address] [place] [id number] Dec, Bipolar disorder, in partial remission, most recent episode hypomanic F31.71 [facility] [place] [address] [id number] [address] [place] [phone] Dec, Bipolar disorder, in partial remission, most recent episode hypomanic F31.71 [facility] [place] [address] [facility] [id number] [address] [place] [address] October, Bipolar disorder, in partial remission, most recent episode hypomanic F31.71 [facility] [place] [address] [facility] [id number] [address] [place] [phone] October, [facility] [place] [address] [facility] [id number] [address] [place] [phone] October, [facility] [place] [address] [facility] [id number] [address] [place] [address] Oct, Bipolar disorder, in partial remission, most recent episode hypomanic F31.71 ; Attention deficit hyperactivity disorder (ADHD), combined type F90.2 ; Anxiety disorder, unspecified type F41.9 and Encounter for drug screening Z02.83 [facility] [place] [address] [facility] [id number] [address] [place] [address] Oct, Bipolar disorder, in partial remission, most recent episode hypomanic F31.71 [facility] [place] [address] [facility] [id number] [address] [place] [address] Oct, Bipolar disorder, in partial remission, most recent episode hypomanic F31.71 [facility] [place] [address] [facility] [id number] [address] [place] [address] Aug, Bipolar disorder, in partial remission, most recent episode hypomanic F31.71 [facility] [place] [address] [facility] [id number] [address] [place] [address] Aug, Bipolar disorder, in partial remission, most recent episode hypomanic F31.71 [facility] [place] [address] [facility] [id number] [address] [place] [phone] Aug, Bipolar disorder, in partial remission, most recent episode hypomanic F31.71 [facility] [place] [address] [facility] [id number] [address] [place] [address] Jul, Bipolar disorder, in partial remission, most recent episode hypomanic F31.71 ; Attention deficit hyperactivity disorder (ADHD), combined type F90.2 and Anxiety disorder, unspecified type F41.9 [facility] [place] [address] [facility] [id number] [address] [place] [address] Jul, Bipolar disorder, in partial remission, most recent episode hypomanic F31.71 [facility] [place] [address] [facility] [id number] [address] [place] [address] Jun, Bipolar disorder, in partial remission, most recent episode hypomanic F31.71 [facility] [place] [address] [id number] [address] [place] [address] May, Bipolar disorder, in partial remission, most recent episode hypomanic F31.71 [facility] [place] [address] [facility] [id number] [address] [place] [address] May, Bipolar disorder, in partial remission, most recent episode hypomanic F31.71 [facility] [place] [address] [facility] [id number] [address] [place] [address] Apr, [facility] [place] [address] [facility] [id number] [address] [place] [address] Apr, Bipolar disorder, in partial remission, most recent episode hypomanic F31.71 ; Attention deficit hyperactivity disorder (ADHD), combined type F90.2 ; Anxiety disorder, unspecified type F41.9 and Cannabis abuse F12.10 [facility] [place] [address] [facility] [id number] [address] [place] [address] Apr, Attention deficit hyperactiv ity disorder (ADHD), combined type F90.2 [facility] [place] [address] [facility] [id number] [address] [place] [address] Mar, Attention deficit hyperactiv ity disorder (ADHD), combined type F90.2 [facility] [place] [address] [facility] [id number] [address] [place] [phone] 14 Mar, 2017 Anxiety disorder, unspecifie d type F41.9 [facility] [place] [address] [id number] [address] [place] [phone] Jan, Attention deficit hyperactiv ity disorder (ADHD), combined type F90.2 [facility] [place] [address] [facility] [id number] [address] [place] [address] Jan, Anxiety disorder, unspecifie d type F41.9 [facility] [place] [address] [facility] [id number] [address] [place] [address] Jan, Other chronic pain G89.29 ; Chronic hepatitis C without hepatic coma B18.2 and Bipolar 1 disorder F31.9 [facility] [place] [address] [id number] [address] [place] [address] Dec, Attention deficit hyperactiv ity disorder (ADHD), combined type F90.2 [facility] [place] [address] [facility] [id number] [address] [place] [address] Dec, Bipolar disorder, in partial remission, most recent episode hypomanic F31.71 ; Attention deficit hyperactivity disorder (ADHD), combined type F90.2 and Anxiety disorder, unspecified type F41.9 [facility] [place] [address] [facility] [id number] [address] [place] [address] Dec, Bipolar disorder, in partial remission, most recent episode hypomanic F31.71 ; Attention deficit hyperactivity disorder (ADHD), combined type F90.2 and Anxiety disorder, unspecified type F41.9 [facility] [place] [address] [facility] [id number] [address] [place] [address] Dec, Bipolar 1 disorder F31.9 and Attention deficit R41.840 [place] [id number] [facility] [id number] [address] [place] [address] Oct, Other chronic pain G89.29 ; Alopecia L65.9 and Screening, lipid Z13.220 [facility] [place] [address] [facility] [id number] [address] [place] [address] Oct, [facility] [place] [address] [facility] [id number] [address] [place] [phone] Aug, [facility] [place] [address] [facility] [id number] [address] [place] [address] Aug, Eustachian tube dysfunction, right H69.81 ; Vertigo R42 and Other chronic pain G89.29 [facility] [place] [address] [id number] [address] [place] [phone] Aug, [facility] [place] [address] [facility] [id number] [address] [place] [phone] Jun, [facility] [place] [address] [facility] [id number] [address] [place] [address] Jun, Low back pain M54.5 and Othe r chronic pain G89.29 [facility] [place] [address] [facility] [id number] [address] [place] [phone] Jun, [facility] [place] [address] [facility] [id number] [address] [place] [address] May, [facility] [place] [address] [facility] [id number] [address] [place] [phone] Jan, [facility] [place] [address] [facility] [id number] [address] [place] [phone] Dec, [facility] [place] [address] [facility] [id number] [address] [place] [phone] Dec, [facility] [place] [address] [place] [id number] [address] [place] [address] Jun, [facility] [place] [address] [facility] [id number] [address] [place] [address] Apr, Eustachian tube dysfunction, unspecified laterality H69.80 ; Hot flashes N95.1 and Encounter for immunization Z23 [facility] [place] [address] [facility] [id number] [address] [place] [phone] Jan, [facility] [place] [address] [facility] [id number] [address] [place] [address] Jan, [facility] [place] [address] [facility] [id number] [address] [place] [address] Jan, [facility] [place] [address] [facility] [id number] [address] [place] [address] Jan, [facility] [place] [address] [facility] [id number] [address] [place] [address] Jan, Encounter to establish care V65.8 ; Bipolar 1 disorder 296.7 ; Abdominal pain 789.00 ; Constipation 564.00 ; Hard of hearing 389.9 and Drug abuse 305.90 [facility] [address] [id number] [address] [place] [address], [place] [address] 05 Dec, 2014 [facility] [address] [id number] [address] [place] [address], [place] [address] October, [facility] [address] [id number] [address] [place] [address], [place] [address] October, [facility] [address] [id number] [address] [place] [id number] 30 Oct, 2014 [facility] [address] [id number] [address] [place] [address], [place] [address] Oct, [facility] [address] [id number] [address] [place] [address] Oct, [facility] [address] [id number] [address] [place] [address] Aug, [facility] [address] [id number] [address] [place] [address] Aug, [facility] [address] [id number] [address] [place] [address] Aug, [facility] [address] [id number] [address] [place] [phone] Aug, [facility] [address] [id number] [address] [place] [phone] Aug, [facility] [address] [id number] [address] [place] [phone] Aug, [facility] [address] [id number] [address] [place] [address] Aug, [facility] [address] [id number] [address] [place] [address] Aug, [facility] [address] [id number] [address] [place] [address] Aug, [facility] [address] [id number] [address] [place] [address], [place] [address] Aug, 2014 [facility] [address] [id number] [address] [place] [address], [place] [address] Aug, 2014 [facility] [address] [id number] [address] [place] [address], [place] [address] Aug, 2014 [facility] [address] [id number] [address] [place] [address], [place] [address] Aug, 2014 [facility] [address] [id number] [address] [place] [address], [place] [address] Aug, 2014 [facility] [address] [id number] [address] [place] [address], [place] [address] Aug, [facility] [address] [id number] [address] [place] [address], [place] [address] Jul, [facility] [address] [id number] [address] [place] [address], [place] [address] Jul, [facility] [address] [id number] [address] [place] [address], [place] [address] Jul, [facility] [address] [id number] [address] [place] [address], [place] [address] Jul, [facility] [address] [id number] [address] [place] [address], [place] [address] Jul, [facility] [address] [id number] [address] [place] [address] Jul, [facility] [address] [id number] [address] [place] [address], [place] [address] Jul, [facility] [address] [id number] [address] [place] [address], [place] [address] Jul, [facility] [address] [id number] [address] [place] [address], [place] [address] Jun, [facility] [address] [id number] [address] [place] [address] Jun, [facility] [address] [id number] [address] [place] [address], [place] [address] Jun, [facility] [address] [id number] [address] [place] [address], [place] [address] Jun, [facility] [address] [id number] [address] [place] [address], [place] [address] 18 Jun, 2014 [facility] [address] [id number] [address] [place] [address], [place] [address] Jun, [facility] [address] [id number] [address] [place] [address], [place] [address] Jun, [facility] [address] [id number] [address] [place] [address], [place] [address] Jun, [facility] [address] [id number] [address] [place] [address], [place] [address] Jun, [facility] [address] [id number] [address] [place] [address], [place] [address] Jun, [facility] [address] [id number] [address] [place] [address], [place] [address] Jun, [facility] [address] [id number] [address] [place] [address], [place] [address] May, [facility] [address] [id number] [address] [place] [address], [place] [address] May, [facility] [address] [id number] [address] [place] [address], [place] [address] May, [facility] [address] [id number] [address] [place] [address], [place] [address] May, [facility] [address] [id number] [address] [place] [address], [place] [address] May, [facility] [address] [id number] [address] [place] [address], [place] [address] May, [facility] [address] [id number] [address] [place] [address], [place] [address] May, [facility] [address] [id number] [address] [place] [address], [place] [address] Apr, [facility] [address] [id number] [address] [place] [address], [place] [address] Apr, [facility] [address] [id number] [address] [place] [address], [place] [address] Apr, [facility] [address] [id number] [address] [place] [address], [place] [address] Apr, [facility] [address] [id number] [address] [place] [address], [place] [address] Apr, [facility] [address] [id number] [address] [place] [address], [place] [address] Apr, [facility] [address] [id number] [address] [place] [address], [place] [address] Mar, [facility] [address] [id number] [address] [place] [address], [place] [address] Mar, [facility] [address] [id number] [address] [place] [address], [place] [address] Mar, [facility] [address] [id number] [address] [place] [address], [place] [address] Mar, [facility] [address] [id number] [address] [place] [address], [place] [address] Mar, [facility] [address] [id number] [address] [place] [address], [place] [address] Mar, [facility] [address] [id number] [address] [place] [address], [place] [address] Jan, [facility] [address] [id number] [address] [place] [address], [place] [address] Jan, [facility] [address] [id number] [address] [place] [address], [place] [address] Jan, [facility] [address] [id number] [facility] [place] [address] Jan, [facility] [address] [id number] [address] [place] [address], [place] [address] Dec, [facility] [address] [id number] [address] [place] [address], [place] [address] Dec, [facility] [address] [id number] [address] [place] [address], [place] [address] Dec, [facility] [address] [id number] [address] [place] [address], [place] [address] Dec, [facility] [address] [id number] [address] [place] [address], [place] [address] Dec, [facility] [address] [id number] [address] [place] [address], [place] [address] Dec, [facility] [address] [id number] [address] [place] [address], [place] [address] Dec, [facility] [address] [id number] [address] [place] [address], [place] [address] Dec, [facility] [address] [id number] [address] [place] [address], [place] [address] Dec, [facility] [address] [id number] [address] [place] [address], [place] [address] Dec, [facility] [address] [id number] [address] [place] [address], [place] [address] Dec, [facility] [address] [id number] [address] [place] [address], [place] [address] Dec, [facility] [address] [id number] [address] [place] [address], [place] [address] October, [facility] [address] [id number] [address] [place] [address], [place] [address] October, [facility] [address] [id number] [address] [place] [address], [place] [address] October, [facility] [address] [id number] [address] [place] [address], [place] [address] October, [facility] [address] [id number] [address] [place] [address], [place] [address] October, [facility] [address] [id number] [address] [place] [address], [place] [address] October, [facility] [address] [id number] [address] [place] [address], [place] [address] Oct, [facility] [address] [id number] [address] [place] [address], [place] [address] Oct, [facility] [address] [id number] [address] [place] [address], [place] [address] Oct, [facility] [address] [id number] [address] [place] [address], [place] [address] Oct, [facility] [address] [id number] [address] [place] [address], [place] [address] Oct, [facility] [address] [id number] [address] [place] [address], [place] [address] Oct, [facility] [address] [id number] [address] [place] [address], [place] [address] Oct, [facility] [address] [id number] [address] [place] [address], [place] [address] Oct, [facility] [address] [id number] [address] [place] [address], [place] [address] Oct, [facility] [address] [id number] [address] [place] [address], [place] [address] Oct, [facility] [address] [id number] [address] [place] [address], [place] [address] Oct, [facility] [address] [id number] [address] [place] [address], [place] [address] Oct, [facility] [address] [id number] [facility] [address] 15 Aug, 2013 [facility] [address] [id number] [address] [place] [address], [place] [address] 15 Aug, 2013 [facility] [address] [id number] [facility] [place] [address] 11 Aug, 2013 [facility] [address] [id number] [address] [place] [address], [place] [address] 11 Aug, 2013 [facility] [address] [id number] [address] [place] [address], [place] [address] 05 Aug, 2013 [facility] [address] [id number] [address] [place] [address], [place] [address] 05 Aug, 2013 [facility] [address] [id number] [address] [place] [address], [place] [address] 04 Aug, 2013 [facility] [address] [id number] [address] [place] [address], [place] [address] Aug, [facility] [address] [id number] [address] [place] [address], [place] [address] Aug, [facility] [address] [id number] [address] [place] [address], [place] [address] 24 Aug, 2013 [facility] [address] [id number] [address] [place] [address], [place] [address] 24 Aug, 2013 [facility] [address] [id number] [address] [place] [address], [place] [address] Aug, [facility] [address] [id number] [address] [place] [address], [place] [address] Aug, [facility] [address] [id number] [address] [place] [address], [place] [address] 20 Aug, 2013 [facility] [address] [id number] [address] [place] [address], [place] [address] 14 Aug, 2013 [facility] [address] [id number] [address] [place] [address], [place] [address] 14 Aug, 2013 [facility] [address] [id number] [address] [place] [address], [place] [address] 14 Aug, 2013 [facility] [address] [id number] [address] [place] [address], [place] [address] 14 Aug, 2013 [facility] [address] [id number] [address] [place] [address], [place] [address] 07 Aug, 2013 [facility] [address] [id number] [address] [place] [address], [place] [address] 07 Aug, 2013 [facility] [address] [id number] [address] [place] [address], [place] [address] 06 Aug, 2013 [facility] [address] [id number] [address] [place] [address], [place] [address] 06 Aug, 2013 [facility] [address] [id number] [address] [place] [address], [place] [address] 04 Aug, 2013 [facility] [address] [id number] [address] [place] [address], [place] [address] 04 Aug, 2013 [facility] [address] [id number] [address] [place] [address], [place] [address] 03 Aug, 2013 [facility] [address] [id number] [address] [place] [address], [place] [address] Jul, [facility] [address] [id number] [address] [place] [address], [place] [address] Jul, [facility] [address] [id number] [address] [place] [address], [place] [address] Jul, [facility] [address] [id number] [address] [place] [address], [place] [address] Jul, [facility] [address] [id number] [address] [place] [address], [place] [address] Jul, [facility] [address] [id number] [address] [place] [address], [place] [address] Jul, [facility] [address] [id number] [address] [place] [address], [place] [address] Jul, [facility] [address] [id number] [address] [place] [address], [place] [address] Jul, [facility] [address] [id number] [address] [place] [address], [place] [address] Jul, [facility] [address] [id number] [address] [place] [address], [place] [address] Jul, [facility] [address] [id number] [address] [place] [address], [place] [address] Jul, [facility] [address] [id number] [address] [place] [address], [place] [address] Jul, [facility] [address] [id number] [address] [place] [address], [place] [address] Jul, [facility] [address] [id number] [address] [place] [address], [place] [address] Jul, [facility] [address] [id number] [address] [place] [address], [place] [address] Jul, [facility] [address] [id number] [address] [place] [address], [place] [address] Jul, [facility] [address] [id number] [address] [place] [address], [place] [address] Jul, [facility] [address] [id number] [address] [place] [address], [place] [address] Jul, [facility] [address] [id number] [address] [place] [address], [place] [address] Jul, [facility] [address] [id number] [address] [place] [address], [place] [address] Jul, [facility] [address] [id number] [address] [place] [address], [place] [address] Jun, [facility] [address] [id number] [address] [place] [address], [place] [address] 31 Jun, 2013 [facility] [address] [id number] [address] [place] [address], [place] [address] 30 Jun, 2013 [facility] [address] [id number] [address] [place] [address], [place] [address] 30 Jun, 2013 [facility] [address] [id number] [address] [place] [address], [place] [address] Jun, [facility] [address] [id number] [address] [place] [address], [place] [address] Jun, [facility] [address] [id number] [address] [place] [address], [place] [address] Jun, [facility] [address] [id number] [address] [place] [address], [place] [address] Jun, [facility] [address] [id number] [address] [place] [address], [place] [address] Jun, [facility] [address] [id number] [address] [place] [address], [place] [address] Jun, [facility] [address] [id number] [address] [place] [address], [place] [address] Jun, [facility] [address] [id number] [address] [place] [address], [place] [address] Jun, [facility] [address] [id number] [address] [place] [address], [place] [address] Jun, [facility] [address] [id number] [address] [place] [address], [place] [address] Jun, [facility] [address] [id number] [address] [place] [address], [place] [address] Jun, [facility] [address] [id number] [address] [place] [address], [place] [address] Jun, [facility] [address] [id number] [address] [place] [address], [place] [address] Jun, [facility] [address] [id number] [address] [place] [address], [place] [address] 17 Jun, 2013 [facility] [address] [id number] [address] [place] [address], [place] [address] 17 Jun, 2013 [facility] [address] [id number] [address] [place] [address], [place] [address] 13 Jun, 2013 [facility] [address] [id number] [address] [place] [address], [place] [address] 12 Jun, 2013 [facility] [address] [id number] [address] [place] [address], [place] [address] 12 Jun, 2013 [facility] [address] [id number] [address] [place] [address], [place] [address] Jun, [facility] [address] [id number] [address] [place] [address], [place] [address] 05 Jun, 2013 [facility] [address] [id number] [address] [place] [address], [place] [address] 05 Jun, 2013 [facility] [address] [id number] [address] [place] [address], [place] [address] Jun, [facility] [address] [id number] [address] [place] [address], [place] [address] 04 Jun, 2013 [facility] [address] [id number] [address] [place] [address], [place] [address] May, [facility] [address] [id number] [address] [place] [address], [place] [address] May, [facility] [address] [id number] [address] [place] [address], [place] [address] May, [facility] [address] [id number] [address] [place] [address], [place] [address] May, [facility] [address] [id number] [address] [place] [address], [place] [address] 05 May, 2013 [facility] [address] [id number] [address] [place] [address], [place] [address] May, [facility] [address] [id number] [address] [place] [address], [place] [address] 30 Apr, 2013 [facility] [address] [id number] [address] [place] [address], [place] [address] 30 Apr, 2013 [facility] [address] [id number] [address] [place] [address], [place] [address] Apr, [facility] [address] [id number] [address] [place] [address], [place] [address] 30 Apr, 2013 [facility] [address] [id number] [address] [place] [address], [place] [address] Apr, [facility] [address] [id number] [address] [place] [address] Apr, [facility] [address] [id number] [address] [place] [address], [place] [address] Apr, [facility] [address] [id number] [address] [place] [address] Apr, [facility] [address] [id number] [address] [place] [address], [place] [address] 26 Mar, 2012 [facility] [address] [id number] [address] [place] [address] 24 Sep, 2012 [facility] [address] [id number] [address] [place] [address] 17 Sep, 2012 [facility] [address] [id number] [address] [place] [address] 17 Sep, 2012 [facility] [address] [id number] [address] [place] [address], [place] [address] 11 Sep, 2012 [facility] [address] [id number] [address] [place] [address] 10 Sep, 2012 [facility] [address] [id number] [address] [place] [address] 05 Sep, 2012 [facility] [address] [id number] [address] [place] [address], [place] [address] 04 Mar, 2013 [facility] [address] [id number] [address] [place] [address], [place] [address] Jan, [facility] [address] [id number] [address] [place] [address], [place] [address] Jan, [facility] [address] [id number] [address] [place] [address], [place] [address] Jan, [facility] [address] [id number] [address] [place] [address], [place] [address] Jan, [facility] [address] [id number] [address] [place] [address], [place] [address] Jan, [facility] [address] [id number] [address] [place] [address], [place] [address] Jan, [facility] [address] [id number] [address] [place] [address], [place] [address] Dec, [facility] [address] [id number] [address] [place] [address], [place] [address] 24 Dec, 2012 [facility] [address] [id number] [address] [place] [address], [place] [address] Dec, [facility] [address] [id number] [address] [place] [address], [place] [address] Dec, [facility] [address] [id number] [address] [place] [address], [place] [address] 18 Dec, 2012 [facility] [address] [id number] [address] [place] [address], [place] [address] 17 Dec, 2012 [facility] [address] [id number] [address] [place] [address], [place] [address] 16 Dec, 2012 [facility] [address] [id number] [address] [place] [address], [place] [address] 16 Dec, 2012 [facility] [address] [id number] [address] [place] [address], [place] [address] 15 Dec, 2012 [facility] [address] [id number] [address] [place] [address], [place] [address] Dec, [facility] [address] [id number] [address] [place] [address], [place] [address] Dec, [facility] [address] [id number] [address] [place] [address], [place] [address] Dec, [facility] [address] [id number] [address] [place] [address], [place] [address] Dec, [facility] [address] [id number] [address] [place] [address], [place] [address] Dec, [facility] [address] [id number] [address] [place] [address], [place] [address] Dec, [facility] [address] [id number] [address] [place] [address], [place] [address] Dec, [facility] [address] [id number] [address] [place] [address], [place] [address] October, [facility] [address] [id number] [address] [place] [address], [place] [address] October, [facility] [address] [id number] [address] [place] [address], [place] [address] October, [facility] [address] [id number] [address] [place] [address], [place] [address] October, [facility] [address] [id number] [address] [place] [address], [place] [address] October, [facility] [address] [id number] [address] [place] [address], [place] [address] October, [facility] [address] [id number] [address] [place] [address], [place] [address] October, [facility] [address] [id number] [address] [place] [address], [place] [address] Oct, [facility] [address] [id number] [address] [place] [address], [place] [address] 26 Oct, 2012 [facility] [address] [id number] [address] [place] [address], [place] [address] 24 Oct, 2012 [facility] [address] [id number] [address] [place] [address], [place] [address] 23 Oct, 2012 [facility] [address] [id number] [address] [place] [address], [place] [address] Oct, [facility] [address] [id number] [address] [place] [address], [place] [address] 18 Oct, 2012 [facility] [address] [id number] [address] [place] [address], [place] [address] 17 Oct, 2012 [facility] [address] [id number] [address] [place] [address], [place] [address] 15 Oct, 2012 [facility] [address] [id number] [address] [place] [address], [place] [address] Oct, [facility] [address] [id number] [address] [place] [address], [place] [address] Oct, [facility] [address] [id number] [address] [place] [address], [place] [address] Oct, [facility] [address] [id number] [address] [place] [address], [place] [address] Oct, [facility] [address] [id number] [address] [place] [address], [place] [address] Aug, [facility] [address] [id number] [address] [place] [address], [place] [address] Aug, [facility] [address] [id number] [address] [place] [address], [place] [address] 12 Aug, 2012 [facility] [address] [id number] [address] [place] [address], [place] [address] 06 Aug, 2012 [facility] [address] [id number] [address] [place] [address], [place] [address] 05 Aug, 2012 [facility] [address] [id number] [address] [place] [address], [place] [address] 05 Aug, 2012 [facility] [address] [id number] [address] [place] [address], [place] [address] 20 Aug, 2012 [facility] [address] [id number] [address] [place] [address], [place] [address] 14 Aug, 2012 [facility] [address] [id number] [address] [place] [address], [place] [address] 12 Aug, 2012 [facility] [address] [id number] [address] [place] [address], [place] [address] 11 Aug, 2012 [facility] [address] [id number] [address] [place] [address], [place] [address] 29 Jul, 2012 [facility] [address] [id number] [address] [place] [address], [place] [address] 15 Jul, 2012 [facility] [address] [id number] [address] [place] [address], [place] [address] 08 Jul, 2012 [facility] [address] [id number] [address] [place] [address], [place] [address] 20 Jun, 2012 [facility] [address] [id number] [address] [place] [address], [place] [address] 18 Jun, 2012 [facility] [address] [id number] [address] [place] [address], [place] [address] 18 Jun, 2012 [facility] [address] [id number] [address] [place] [address], [place] [address] 18 Jun, 2012 [facility] [address] [id number] [address] [place] [address], [place] [address] 18 Jun, 2012 [facility] [address] [id number] [address] [place] [address], [place] [address] 14 Jun, 2012 [facility] [address] [id number] [address] [place] [address], [place] [address] 14 Jun, 2012 [facility] [address] [id number] [address] [place] [address], [place] [address] 13 Jun, 2012 [facility] [address] [id number] [address] [place] [address], [place] [address] 13 Jun, 2012 [facility] [address] [id number] [address] [place] [address], [place] [address] 11 Jun, 2012 [facility] [address] [id number] [address] [place] [address], [place] [address] Jun, [facility] [address] [id number] [address] [place] [address], [place] [address] Jun, [facility] [address] [id number] [address] [place] [address], [place] [address] Jun, [facility] [address] [id number] [address] [place] [address], [place] [address] 07 Jun, 2012 [facility] [address] [id number] [address] [place] [address], [place] [address] Jun, [facility] [address] [id number] [address] [place] [address], [place] [address] Jun, [facility] [address] [id number] [address] [place] [address], [place] [address] Jun, [facility] [address] [id number] [address] [place] [address], [place] [address] Jun, [facility] [address] [id number] [address] [place] [address], [place] [address] Jun, [facility] [address] [id number] [address] [place] [address], [place] [address] 05 Jun, 2012 [facility] [address] [id number] [address] [place] [address], [place] [address] Jun, [facility] [address] [id number] [address] [place] [address], [place] [address] Jun, [facility] [address] [id number] [address] [place] [address], [place] [address] Jun, [facility] [address] [id number] [address] [place] [address], [place] [address] May, [facility] [address] [id number] [address] [place] [address], [place] [address] May, [facility] [address] [id number] [address] [place] [address], [place] [address] May, [facility] [address] [id number] [address] [place] [address], [place] [address] May, [facility] [address] [id number] [address] [place] [address], [place] [address] May, [facility] [address] [id number] [address] [place] [address], [place] [address] May, [facility] [address] [id number] [address] [place] [address], [place] [address] May, [facility] [address] [id number] [address] [place] [address], [place] [address] May, [facility] [address] [id number] [address] [place] [address], [place] [address] Apr, [facility] [address] [id number] [address] [place] [address], [place] [address] 30 Apr, 2012 [facility] [address] [id number] [address] [place] [address], [place] [address] 29 Apr, 2012 [facility] [address] [id number] [address] [place] [address], [place] [address] Apr, [facility] [address] [id number] [address] [place] [address], [place] [address] 16 Apr, 2012 [facility] [address] [id number] [address] [place] [address], [place] [address] Apr, [facility] [address] [id number] [address] [place] [address], [place] [address] Apr, [facility] [address] [id number] [address] [place] [address], [place] [address] Apr, [facility] [address] [id number] [address] [place] [address], [place] [address] Apr, [facility] [address] [id number] [address] [place] [address], [place] [address] Apr, [facility] [address] [id number] [address] [place] [address], [place] [address] Apr, [facility] [address] [id number] [address] [place] [address], [place] [address] Apr, [facility] [address] [id number] [address] [place] [address], [place] [address] Mar, [facility] [address] [id number] [address] [place] [address], [place] [address] 18 Mar, 2012 [facility] [address] [id number] [address] [place] [address], [place] [address] Mar, [facility] [address] [id number] [address] [place] [address], [place] [address] Mar, [facility] [address] [id number] [address] [place] [id number] Mar, [facility] [address] [id number] [address] [place] [id number] Mar, [facility] [address] [id number] [address] [place] [address] Mar, [facility] [address] [id number] [address] [place] [address] Jan, [facility] [address] [id number] [address] [place] [address] Jan, [facility] [address] [id number] [address] [place] [id number] Jan, [facility] [address] [id number] [address] [place] [id number] Jan, [facility] [address] [id number] [address] [place] [address] Jan, [facility] [address] [id number] [facility] [place] [address] Jan, [facility] [address] [id number] [address] [place] [address], [place] [address] 16 Feb, 2012 [facility] [address] [id number] [address] [place] [address], [place] [address] Jan, [facility] [address] [id number] [address] [place] [address], [place] [address] Jan, [facility] [address] [id number] [address] [place] [address], [place] [address] Jan, [facility] [address] [id number] [address] [place] [address], [place] [address] Jan, [facility] [address] [id number] [address] [place] [address], [place] [address] Dec, [facility] [address] [id number] [address] [place] [address], [place] [address] Dec, [facility] [address] [id number] [address] [place] [address], [place] [address] Dec, [facility] [address] [id number] [address] [place] [address], [place] [address] Dec, [facility] [address] [id number] [address] [place] [address], [place] [address] Dec, [facility] [address] [id number] [address] [place] [address], [place] [address] Dec, [facility] [address] [id number] [address] [place] [address], [place] [address] 18 Jan, 2012 [facility] [address] [id number] [address] [place] [address], [place] [address] 17 Jan, 2012 [facility] [address] [id number] [address] [place] [address], [place] [address] 16 Jan, 2012 [facility] [address] [id number] [address] [place] [address], [place] [address] 13 Jan, 2012 [facility] [address] [id number] [address] [place] [address], [place] [address] 13 Jan, 2012 [facility] [address] [id number] [address] [place] [address], [place] [address] 02 Jan, 2012 [facility] [address] [id number] [address] [place] [address], [place] [address] Dec, [facility] [address] [id number] [address] [place] [address], [place] [address] Dec, [facility] [address] [id number] [address] [place] [address], [place] [address] 25 Dec, 2011 [facility] [address] [id number] [address] [place] [address], [place] [address] 18 Dec, 2011 [facility] [address] [id number] [address] [place] [address], [place] [address] 15 Dec, 2011 [facility] [address] [id number] [address] [place] [address], [place] [address] Dec, [facility] [address] [id number] [address] [place] [address], [place] [address] Dec, [facility] [address] [id number] [address] [place] [address], [place] [address] October, [facility] [address] [id number] [address] [place] [address], [place] [address] October, [facility] [address] [id number] [address] [place] [address], [place] [address] October, [facility] [address] [id number] [address] [place] [address], [place] [address] October, [facility] [address] [id number] [address] [place] [address], [place] [address] October, [facility] [address] [id number] [address] [place] [address], [place] [address] October, [facility] [address] [id number] [address] [place] [address], [place] [address] Oct, [facility] [address] [id number] [address] [place] [address], [place] [address] 24 Oct, 2011 [facility] [address] [id number] [address] [place] [address], [place] [address] Oct, [facility] [address] [id number] [address] [place] [address], [place] [address] Oct, [facility] [address] [id number] [address] [place] [address], [place] [address] Oct, [facility] [address] [id number] [address] [place] [address], [place] [address] Oct, [facility] [address] [id number] [address] [place] [address], [place] [address] Oct, [facility] [address] [id number] [address] [place] [address], [place] [address] Aug, [facility] [address] [id number] [address] [place] [address], [place] [address] Aug, [facility] [address] [id number] [address] [place] [address], [place] [address] Aug, [facility] [address] [id number] [address] [place] [address], [place] [address] Aug, [facility] [address] [id number] [address] [place] [address], [place] [address] Aug, [facility] [address] [id number] [address] [place] [address], [place] [address] Aug, [facility] [address] [id number] [address] [place] [address], [place] [address] Aug, [facility] [address] [id number] [address] [place] [address], [place] [address] Aug, [facility] [address] [id number] [address] [place] [address] Aug, [facility] [address] [id number] [address] [place] [address], [place] [address] Jul, [facility] [address] [id number] [address] [place] [address], [place] [address] Jul, [facility] [address] [id number] [address] [place] [address], [place] [address] Jul, [facility] [address] [id number] [address] [place] [address], [place] [address] Jul, [facility] [address] [id number] [address] [place] [address], [place] [address] Jun, [facility] [address] [id number] [address] [place] [address], [place] [address] Jun, [facility] [address] [id number] [address] [place] [address], [place] [address] May, [facility] [address] [id number] [address] [place] [address], [place] [address] May, [facility] [address] [id number] [address] [place] [address], [place] [address] May, [facility] [address] [id number] [address] [place] [address], [place] [address] May, [facility] [address] [id number] [address] [place] [address], [place] [address] May, [facility] [address] [id number] [address] [place] [address] Apr, [facility] [address] [id number] [address] [place] [address], [place] [address] Apr, [facility] [address] [id number] [address] [place] [address], [place] [address] 10 Apr, 2011 [facility] [address] [id number] [address] [place] [address], [place] [address] 15 Jan, 2011 [facility] [address] [id number] [address] [place] [address] Dec, [facility] [place] [address] [id number] [address] [place] [address] October, [facility] [place] [address] [id number] [address] [place] [address] Jun, [facility] [place] [address] [facility] [id number] [address] [place] [address] Apr, [facility] [place] [address] [facility] [id number] [address] [place] [address] Apr, [facility] [place] [address] [facility] [id number] [address] [place] [address] Apr, [facility] [place] [address] [facility] [id number] [address] [place] [address] Jun, IMMUNIZATIONS No Known Immunizations SOCIAL HISTORY [...]
--- OUTSIDE RECORDS SUMMARY | 2020-01-25 13:31 | XMS REPORT ---
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 Name Role Phone daisyANEUDY Landon Unavailable PROBLEMS Type Condition ICD9-CM Code PHB48-IT Code Onset Dates Condition S tatus SNOMED Code Problem Chronic hepatitis C without hepatic coma B18.2 Active 821381693 Problem Cannabis abuse F12.10 Active 88062 009 Problem Bipolar 1 disorder F31.9 Active 3 98165981 Problem Attention deficit hyperactivity disorder (ADHD), combi luciano type F90.2 Active 46750115 Problem Attention deficit R41.840 Active 76 467375 Problem Hot flashes due to menopause N95.1 A ctive 378870435 Problem H/O laminectomy Z98.89 Active 1616 38938 Problem Other chronic pain G89.29 Active 8 2976459 Problem Anxiety disorder, unspecified type F41.9 Active 848564750 Problem Bipolar disorder, in partial remission, most rec ent episode hypomanic F31.71 Active [id number] ALLERGIES No Information ENCOUNTERS Encounter Location Date Diagnosis [facility] [address] [facility] [id number] [address] [place] [address] Aug, [facility] [address] [facility] [id number] [address] [place] [address] Jul, [facility] [address] [facility] [id number] [address] [place] [address] Jul, [facility] [address] [facility] [id number] [address] [place] [address] Apr, [facility] [address] [facility] [id number] [address] [place] [address] Mar, Hot flashes due to menopause N95.1 ; Anxiety disorder, unspecified type F41.9 ; Low back pain M54.5 and Encounter for immunization Z23 [facility] [address] [id number] [address] [place] [address] Dec, Other chronic pain G89.29 an d Low back pain M54.5 [facility] [address] [id number] [address] [place] [address] October, [facility] [address] [facility] [id number] [address] [place] [address] October, [facility] [address] [id number] [address] [place] [phone] October, [facility] [address] [facility] [id number] [address] [place] [address] October, Other chronic pain G89.29 an d Chronic hepatitis C without hepatic coma B18.2 [facility] [address] [facility] [id number] [address] [place] [address] Aug, Bipolar disorder, in partial remission, most recent episode hypomanic F31.71 ; Attention deficit hyperactivity disorder (ADHD), combined type F90.2 and Anxiety disorder, unspecified type F41.9 [facility] [address] [id number] [address] [place] [address] Aug, [facility] [address] [facility] [id number] [address] [place] [address] Aug, Bipolar disorder, in partial remission, most recent episode hypomanic F31.71 [facility] [address] [facility] [id number] [address] [place] [address] Aug, [facility] [address] [id number] [address] [place] [address] Aug, Bipolar disorder, in partial remission, most recent episode hypomanic F31.71 [facility] [address] [id number] [address] [place] [address] Aug, Bipolar disorder, in partial remission, most recent episode hypomanic F31.71 ; Attention deficit hyperactivity disorder (ADHD), combined type F90.2 and Anxiety disorder, unspecified type F41.9 [facility] [address] [id number] [address] [place] [address] Aug, Low back pain M54.5 and Pain in left wrist M25.532 [facility] [address] [id number] [address] [place] [address] Aug, [facility] [address] [id number] [address] [place] [phone] Jun, [facility] [address] [id number] [address] [place] [address] Apr, Bipolar disorder, in partial remission, most recent episode hypomanic F31.71 [facility] [address] [id number] [address] [place] [address] Apr, [facility] [address] [id number] [address] [place] [address] Apr, Bipolar disorder, in partial remission, most recent episode hypomanic F31.71 ; Attention deficit hyperactivity disorder (ADHD), combined type F90.2 ; Anxiety disorder, unspecified type F41.9 and 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 [facility] [address] [id number] [address] [place] [address] Apr, Bipolar disorder, in partial remission, most recent episode hypomanic F31.71 [facility] [address] [id number] [address] [place] [address] Apr, Bipolar disorder, in partial remission, most recent episode hypomanic F31.71 [facility] [address] [id number] [address] [place] [address] Mar, [facility] [address] [id number] [address] [place] [phone] Mar, Bipolar disorder, in partial remission, most recent episode hypomanic F31.71 ; Encounter for immunization Z23 and Low back pain M54.5 [facility] [address] [id number] [address] [place] [address] Mar, Bipolar disorder, in partial remission, most recent episode hypomanic F31.71 [facility] [address] [id number] [address] [place] [address] Mar, Bipolar disorder, in partial remission, most recent episode hypomanic F31.71 [facility] [address] [id number] [address] [place] [address] Jan, Bipolar disorder, in partial remission, most recent episode hypomanic F31.71 [facility] [address] [id number] [address] [place] [address] Jan, Bipolar disorder, in partial remission, most recent episode hypomanic F31.71 [facility] [address] [id number] [address] [place] [address] Dec, Bipolar disorder, in partial remission, most recent episode hypomanic F31.71 [facility] [address] 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 [id number] [address] [place] [address] Dec, Bipolar disorder, in partial remission, most recent episode hypomanic F31.71 [facility] [address] [id number] [address] [place] [address] Dec, Bipolar disorder, in partial remission, most recent episode hypomanic F31.71 [facility] [address] [facility] [id number] [address] [place] [address] October, Bipolar disorder, in partial remission, most recent episode hypomanic F31.71 [facility] [address] [facility] [id number] [address] [place] [address] October, [facility] [address] [facility] [id number] [address] [place] [address] October, [facility] [address] [facility] [id number] [address] [place] [address] Oct, Bipolar disorder, in partial remission, most recent episode hypomanic F31.71 ; Attention deficit hyperactivity disorder (ADHD), combined type F90.2 ; Anxiety disorder, unspecified type F41.9 and Encounter for drug screening Z02.83 [facility] [address] [facility] [id number] [address] [place] [address] Oct, Bipolar disorder, in partial remission, most recent episode hypomanic F31.71 [facility] [address] [facility] [id number] [address] [place] [address] Oct, Bipolar disorder, in partial remission, most recent episode hypomanic F31.71 [facility] [address] [facility] [id number] [address] [place] [address] Aug, Bipolar disorder, in partial remission, most recent episode hypomanic F31.71 [facility] [address] [facility] [id number] [address] [place] [address] Aug, Bipolar disorder, in partial remission, most recent episode hypomanic F31.71 [facility] [address] [facility] [id number] [address] [place] [address] Aug, Bipolar disorder, in partial remission, most recent episode hypomanic F31.71 [facility] [address] [facility] [id number] [address] [place] [address] Jul, Bipolar disorder, in partial remission, most recent episode hypomanic F31.71 ; Attention deficit hyperactivity disorder (ADHD), combined type F90.2 and Anxiety disorder, unspecified type F41.9 [facility] [address] [facility] [id number] [address] [place] [address] Jul, Bipolar disorder, in partial remission, most recent episode hypomanic F31.71 [facility] [address] [facility] [id number] [address] [place] [address] Jun, Bipolar disorder, in partial remission, most recent episode hypomanic F31.71 [facility] [address] [id number] [address] [place] [address] May, Bipolar disorder, in partial remission, most recent episode hypomanic F31.71 [facility] [address] [facility] [id number] [address] [place] [address] May, Bipolar disorder, in partial remission, most recent episode hypomanic F31.71 [facility] [address] [facility] [id number] [address] [place] [address] Apr, [facility] [address] [facility] [id number] [address] [place] [address] Apr, Bipolar disorder, in partial remission, most recent episode hypomanic F31.71 ; Attention deficit hyperactivity disorder (ADHD), combined type F90.2 ; Anxiety disorder, unspecified type F41.9 and Cannabis abuse F12.10 [facility] [address] [facility] [id number] [address] [place] [address] Apr, Attention deficit hyperactiv ity disorder (ADHD), combined type F90.2 [facility] [address] [facility] [id number] [address] [place] [address] Mar, Attention deficit hyperactiv ity disorder (ADHD), combined type F90.2 [facility] [address] [facility] [id number] [address] [place] [address] 14 Mar, 2017 Anxiety disorder, unspecifie d type F41.9 [facility] [address] [id number] [address] [place] [address] Jan, Attention deficit hyperactiv ity disorder (ADHD), combined type F90.2 [facility] [address] [facility] [id number] [address] [place] [address] Jan, Anxiety disorder, unspecifie d type F41.9 [facility] [address] [facility] [id number] [address] [place] [address] Jan, Other chronic pain G89.29 ; Chronic hepatitis C without hepatic coma B18.2 and Bipolar 1 disorder F31.9 [facility] [address] [id number] [address] [place] [address] Dec, Attention deficit hyperactiv ity disorder (ADHD), combined type F90.2 [facility] [address] [facility] [id number] [address] [place] [address] Dec, Bipolar disorder, in partial remission, most recent episode hypomanic F31.71 ; Attention deficit hyperactivity disorder (ADHD), combined type F90.2 and Anxiety disorder, unspecified type F41.9 [facility] [address] [facility] [id number] [address] [place] [address] Dec, Bipolar disorder, in partial remission, most recent episode hypomanic F31.71 ; Attention deficit hyperactivity disorder (ADHD), combined type F90.2 and Anxiety disorder, unspecified type F41.9 [facility] [address] [facility] [id number] [address] [place] [address] Dec, Bipolar 1 disorder F31.9 and Attention deficit R41.840 [place] [address] [facility] [id number] [address] [place] [address] Oct, Other chronic pain G89.29 ; Alopecia L65.9 and Screening, lipid Z13.220 [facility] [address] [facility] [id number] [address] [place] [address] Oct, [facility] [address] [facility] [id number] [address] [place] [address] Aug, [facility] [address] [facility] [id number] [address] [place] [address] Aug, Eustachian tube dysfunction, right H69.81 ; Vertigo R42 and Other chronic pain G89.29 [facility] [address] [id number] [address] [place] [address] Aug, [facility] [address] [facility] [id number] [address] [place] [address] Jun, [facility] [address] [facility] [id number] [address] [place] [address] Jun, Low back pain M54.5 and Othe r chronic pain G89.29 [facility] [address] [facility] [id number] [address] [place] [address] Jun, [facility] [address] [facility] [id number] [address] [place] [address] May, [facility] [address] [facility] [id number] [address] [place] [address] Jan, [facility] [address] [facility] [id number] [address] [place] [address] Dec, [facility] [address] [facility] [id number] [address] [place] [address] Dec, [facility] [address] [place] [id number] [address] [place] [address] Jun, [facility] [address] [facility] [id number] [address] [place] [address] Apr, Eustachian tube dysfunction, unspecified laterality H69.80 ; Hot flashes N95.1 and Encounter for immunization Z23 [facility] [address] [facility] [id number] [address] [place] [address] Jan, [facility] [address] [facility] [id number] [address] [place] [address] Jan, [facility] [address] [facility] [id number] [address] [place] [address] Jan, [facility] [address] [facility] [id number] [address] [place] [address] Jan, [facility] [address] [facility] [id number] [address] [place] [address] Jan, Encounter to establish care V65.8 ; Bipolar 1 disorder 296.7 ; Abdominal pain 789.00 ; Constipation 564.00 ; Hard of hearing 389.9 and Drug abuse 305.90 [facility] [address] [id number] [address] [place] [address], [place] [address] 05 Dec, 2014 [facility] [address] [id number] [address] [place] [address], [place] [address] October, [facility] [address] [id number] [address] [place] [address], [place] [address] October, [facility] [address] [id number] [address] [place] [address] 30 Oct, 2014 [facility] [address] [id number] [address] [place] [address], [place] [address] Oct, [facility] [address] [id number] [address] [place] [address] Oct, [facility] [address] [id number] [address] [place] [address] Aug, [facility] [address] [id number] [address] [place] [address] Aug, [facility] [address] [id number] [address] [place] [address] Aug, [facility] [address] [id number] [address] [place] [address] Aug, [facility] [address] [id number] [address] [place] [address] Aug, [facility] [address] [id number] [address] [place] [address] Aug, [facility] [address] [id number] [address] [place] [address] Aug, [facility] [address] [id number] [address] [place] [address] Aug, [facility] [address] [id number] [address] [place] [address] Aug, [facility] [address] [id number] [address] [place] [address], [place] [address] Aug, 2014 [facility] [address] [id number] [address] [place] [address], [place] [address] Aug, 2014 [facility] [address] [id number] [address] [place] [address], [place] [address] Aug, 2014 [facility] [address] [id number] [address] [place] [address], [place] [address] Aug, 2014 [facility] [address] [id number] [address] [place] [address], [place] [address] Aug, 2014 [facility] [address] [id number] [address] [place] [address], [place] [address] Aug, [facility] [address] [id number] [address] [place] [address], [place] [address] Jul, [facility] [address] [id number] [address] [place] [address], [place] [address] Jul, [facility] [address] [id number] [address] [place] [address], [place] [address] Jul, [facility] [address] [id number] [address] [place] [address], [place] [address] Jul, [facility] [address] [id number] [address] [place] [address], [place] [address] Jul, [facility] [address] [id number] [address] [place] [address] Jul, [facility] [address] [id number] [address] [place] [address], [place] [address] Jul, [facility] [address] [id number] [address] [place] [address], [place] [address] Jul, [facility] [address] [id number] [address] [place] [address], [place] [address] Jun, [facility] [address] [id number] [address] [place] [id number] Jun, [facility] [address] [id number] [address] [place] [address], [place] [address] Jun, [facility] [address] [id number] [address] [place] [address], [place] [address] Jun, [facility] [address] [id number] [address] [place] [address], [place] [address] 18 Jun, 2014 [facility] [address] [id number] [address] [place] [address], [place] [address] Jun, [facility] [address] [id number] [address] [place] [address], [place] [address] Jun, [facility] [address] [id number] [address] [place] [address], [place] [address] Jun, [facility] [address] [id number] [address] [place] [address], [place] [address] Jun, [facility] [address] [id number] [address] [place] [address], [place] [address] Jun, [facility] [address] [id number] [address] [place] [address], [place] [address] Jun, [facility] [address] [id number] [address] [place] [address], [place] [address] May, [facility] [address] [id number] [address] [place] [address], [place] [address] May, [facility] [address] [id number] [address] [place] [address], [place] [address] May, [facility] [address] [id number] [address] [place] [address], [place] [address] May, [facility] [address] [id number] [address] [place] [address], [place] [address] May, [facility] [address] [id number] [address] [place] [address], [place] [address] May, [facility] [address] [id number] [address] [place] [address], [place] [address] May, [facility] [address] [id number] [address] [place] [address], [place] [address] Apr, [facility] [address] [id number] [address] [place] [address], [place] [address] Apr, [facility] [address] [id number] [address] [place] [address], [place] [address] Apr, [facility] [address] [id number] [address] [place] [address], [place] [address] Apr, [facility] [address] [id number] [address] [place] [address], [place] [address] Apr, [facility] [address] [id number] [address] [place] [address], [place] [address] Apr, [facility] [address] [id number] [address] [place] [address], [place] [address] Mar, [facility] [address] [id number] [address] [place] [address], [place] [address] Mar, [facility] [address] [id number] [address] [place] [address], [place] [address] Mar, [facility] [address] [id number] [address] [place] [address], [place] [address] Mar, [facility] [address] [id number] [address] [place] [address], [place] [address] Mar, [facility] [address] [id number] [address] [place] [address], [place] [address] Mar, [facility] [address] [id number] [address] [place] [address], [place] [address] Jan, [facility] [address] [id number] [address] [place] [address], [place] [address] Jan, [facility] [address] [id number] [address] [place] [address], [place] [address] Jan, [facility] [address] [id number] [facility] [place] [address] Jan, [facility] [address] [id number] [address] [place] [address], [place] [address] Dec, [facility] [address] [id number] [address] [place] [address], [place] [address] Dec, [facility] [address] [id number] [address] [place] [address], [place] [address] Dec, [facility] [address] [id number] [address] [place] [address], [place] [address] Dec, [facility] [address] [id number] [address] [place] [address], [place] [address] Dec, [facility] [address] [id number] [address] [place] [address], [place] [address] Dec, [facility] [address] [id number] [address] [place] [address], [place] [address] Dec, [facility] [address] [id number] [address] [place] [address], [place] [address] Dec, [facility] [address] [id number] [address] [place] [address], [place] [address] Dec, [facility] [address] [id number] [address] [place] [address], [place] [address] Dec, [facility] [address] [id number] [address] [place] [address], [place] [address] Dec, [facility] [address] [id number] [address] [place] [address], [place] [address] Dec, [facility] [address] [id number] [address] [place] [address], [place] [address] October, [facility] [address] [id number] [address] [place] [address], [place] [address] October, [facility] [address] [id number] [address] [place] [address], [place] [address] October, [facility] [address] [id number] [address] [place] [address], [place] [address] October, [facility] [address] [id number] [address] [place] [address], [place] [address] October, [facility] [address] [id number] [address] [place] [address], [place] [address] October, [facility] [address] [id number] [address] [place] [address], [place] [address] Oct, [facility] [address] [id number] [address] [place] [address], [place] [address] Oct, [facility] [address] [id number] [address] [place] [address], [place] [address] Oct, [facility] [address] [id number] [address] [place] [address], [place] [address] Oct, [facility] [address] [id number] [address] [place] [address], [place] [address] Oct, [facility] [address] [id number] [address] [place] [address], [place] [address] Oct, [facility] [address] [id number] [address] [place] [address], [place] [address] Oct, [facility] [address] [id number] [address] [place] [address], [place] [address] Oct, [facility] [address] [id number] [address] [place] [address], [place] [address] Oct, [facility] [address] [id number] [address] [place] [address], [place] [address] Oct, [facility] [address] [id number] [address] [place] [address], [place] [address] Oct, [facility] [address] [id number] [address] [place] [address], [place] [address] Oct, [facility] [address] [id number] [facility] [place] [address] 15 Aug, 2013 [facility] [address] [id number] [address] [place] [address], [place] [address] 15 Aug, 2013 [facility] [address] [id number] [facility] [place] [address] 11 Aug, 2013 [facility] [address] [id number] [address] [place] [address], [place] [address] 11 Aug, 2013 [facility] [address] [id number] [address] [place] [address], [place] [address] 05 Aug, 2013 [facility] [address] [id number] [address] [place] [address], [place] [address] 05 Aug, 2013 [facility] [address] [id number] [address] [place] [address], [place] [address] 04 Aug, 2013 [facility] [address] [id number] [address] [place] [address], [place] [address] Aug, [facility] [address] [id number] [address] [place] [address], [place] [address] Aug, [facility] [address] [id number] [address] [place] [address], [place] [address] 24 Aug, 2013 [facility] [address] [id number] [address] [place] [address], [place] [address] 24 Aug, 2013 [facility] [address] [id number] [address] [place] [address], [place] [address] Aug, [facility] [address] [id number] [address] [place] [address], [place] [address] Aug, [facility] [address] [id number] [address] [place] [address], [place] [address] 20 Aug, 2013 [facility] [address] [id number] [address] [place] [address], [place] [address] 14 Aug, 2013 [facility] [address] [id number] [address] [place] [address], [place] [address] 14 Aug, 2013 [facility] [address] [id number] [address] [place] [address], [place] [address] 14 Aug, 2013 [facility] [address] [id number] [address] [place] [address], [place] [address] 14 Aug, 2013 [facility] [address] [id number] [address] [place] [address], [place] [address] 07 Aug, 2013 [facility] [address] [id number] [address] [place] [address], [place] [address] 07 Aug, 2013 [facility] [address] [id number] [address] [place] [address], [place] [address] 06 Aug, 2013 [facility] [address] [id number] [address] [place] [address], [place] [address] 06 Aug, 2013 [facility] [address] [id number] [address] [place] [address], [place] [address] 04 Aug, 2013 [facility] [address] [id number] [address] [place] [address], [place] [address] 04 Aug, 2013 [facility] [address] [id number] [address] [place] [address], [place] [address] 03 Aug, 2013 [facility] [address] [id number] [address] [place] [address], [place] [address] Jul, [facility] [address] [id number] [address] [place] [address], [place] [address] Jul, [facility] [address] [id number] [address] [place] [address], [place] [address] Jul, [facility] [address] [id number] [address] [place] [address], [place] [address] Jul, [facility] [address] [id number] [address] [place] [address], [place] [address] Jul, [facility] [address] [id number] [address] [place] [address], [place] [address] Jul, [facility] [address] [id number] [address] [place] [address], [place] [address] Jul, [facility] [address] [id number] [address] [place] [address], [place] [address] Jul, [facility] [address] [id number] [address] [place] [address], [place] [address] Jul, [facility] [address] [id number] [address] [place] [address], [place] [address] Jul, [facility] [address] [id number] [address] [place] [address], [place] [address] Jul, [facility] [address] [id number] [address] [place] [address], [place] [address] Jul, [facility] [address] [id number] [address] [place] [address], [place] [address] Jul, [facility] [address] [id number] [address] [place] [address], [place] [address] Jul, [facility] [address] [id number] [address] [place] [address], [place] [address] Jul, [facility] [address] [id number] [address] [place] [address], [place] [address] Jul, [facility] [address] [id number] [address] [place] [address], [place] [address] Jul, [facility] [address] [id number] [address] [place] [address], [place] [address] Jul, [facility] [address] [id number] [address] [place] [address], [place] [address] Jul, [facility] [address] [id number] [address] [place] [address], [place] [address] Jul, [facility] [address] [id number] [address] [place] [address], [place] [address] Jun, [facility] [address] [id number] [address] [place] [address], [place] [address] 31 Jun, 2013 [facility] [address] [id number] [address] [place] [address], [place] [address] 30 Jun, 2013 [facility] [address] [id number] [address] [place] [address], [place] [address] 30 Jun, 2013 [facility] [address] [id number] [address] [place] [address], [place] [address] Jun, [facility] [address] [id number] [address] [place] [address], [place] [address] Jun, [facility] [address] [id number] [address] [place] [address], [place] [address] Jun, [facility] [address] [id number] [address] [place] [address], [place] [address] Jun, [facility] [address] [id number] [address] [place] [address], [place] [address] Jun, [facility] [address] [id number] [address] [place] [address], [place] [address] Jun, [facility] [address] [id number] [address] [place] [address], [place] [address] Jun, [facility] [address] [id number] [address] [place] [address], [place] [address] Jun, [facility] [address] [id number] [address] [place] [address], [place] [address] Jun, [facility] [address] [id number] [address] [place] [address], [place] [address] Jun, [facility] [address] [id number] [address] [place] [address], [place] [address] Jun, [facility] [address] [id number] [address] [place] [address], [place] [address] Jun, [facility] [address] [id number] [address] [place] [address], [place] [address] Jun, [facility] [address] [id number] [address] [place] [address], [place] [address] 17 Jun, 2013 [facility] [address] [id number] [address] [place] [address], [place] [address] 17 Jun, 2013 [facility] [address] [id number] [address] [place] [address], [place] [address] 13 Jun, 2013 [facility] [address] [id number] [address] [place] [address], [place] [address] 12 Jun, 2013 [facility] [address] [id number] [address] [place] [address], [place] [address] 12 Jun, 2013 [facility] [address] [id number] [address] [place] [address], [place] [address] Jun, [facility] [address] [id number] [address] [place] [address], [place] [address] 05 Jun, 2013 [facility] [address] [id number] [address] [place] [address], [place] [address] 05 Jun, 2013 [facility] [address] [id number] [address] [place] [address], [place] [address] Jun, [facility] [address] [id number] [address] [place] [address], [place] [address] 04 Jun, 2013 [facility] [address] [id number] [address] [place] [address], [place] [address] May, [facility] [address] [id number] [address] [place] [address], [place] [address] May, [facility] [address] [id number] [address] [place] [address], [place] [address] May, [facility] [address] [id number] [address] [place] [address], [place] [address] May, [facility] [address] [id number] [address] [place] [address], [place] [address] 05 May, 2013 [facility] [address] [id number] [address] [place] [address], [place] [address] May, [facility] [address] [id number] [address] [place] [address], [place] [address] 30 Apr, 2013 [facility] [address] [id number] [address] [place] [address], [place] [address] 30 Apr, 2013 [facility] [address] [id number] [address] [place] [address], [place] [address] Apr, [facility] [address] [id number] [address] [place] [address], [place] [address] 30 Apr, 2013 [facility] [address] [id number] [address] [place] [address], [place] [address] Apr, [facility] [address] [id number] [address] [place] [address] Apr, [facility] [address] [id number] [address] [place] [address], [place] [address] Apr, [facility] [address] [id number] [address] [place] [address] Apr, [facility] [address] [id number] [address] [place] [address], [place] [address] 26 Mar, 2012 [facility] [address] [id number] [address] [place] [address] 24 Sep, 2012 [facility] [address] [id number] [address] [place] [address] 17 Sep, 2012 [facility] [address] [id number] [address] [place] [address] 17 Sep, 2012 [facility] [address] [id number] [address] [place] [address], [place] [address] 11 Sep, 2012 [facility] [address] [id number] [address] [place] [address] 10 Sep, 2012 [facility] [address] [id number] [address] [place] [address] 05 Sep, 2012 [facility] [address] [id number] [address] [place] [address], [place] [address] 04 Mar, 2013 [facility] [address] [id number] [address] [place] [address], [place] [address] Jan, [facility] [address] [id number] [address] [place] [address], [place] [address] Jan, [facility] [address] [id number] [address] [place] [address], [place] [address] Jan, [facility] [address] [id number] [address] [place] [address], [place] [address] Jan, [facility] [address] [id number] [address] [place] [address], [place] [address] Jan, [facility] [address] [id number] [address] [place] [address], [place] [address] Jan, [facility] [address] [id number] [address] [place] [address], [place] [address] Dec, [facility] [address] [id number] [address] [place] [address], [place] [address] 24 Dec, 2012 [facility] [address] [id number] [address] [place] [address], [place] [address] Dec, [facility] [address] [id number] [address] [place] [address], [place] [address] Dec, [facility] [address] [id number] [address] [place] [address], [place] [address] 18 Dec, 2012 [facility] [address] [id number] [address] [place] [address], [place] [address] 17 Dec, 2012 [facility] [address] [id number] [address] [place] [address], [place] [address] 16 Dec, 2012 [facility] [address] [id number] [address] [place] [address], [place] [address] 16 Dec, 2012 [facility] [address] [id number] [address] [place] [address], [place] [address] 15 Dec, 2012 [facility] [address] [id number] [address] [place] [address], [place] [address] Dec, [facility] [address] [id number] [address] [place] [address], [place] [address] Dec, [facility] [address] [id number] [address] [place] [address], [place] [address] Dec, [facility] [address] [id number] [address] [place] [address], [place] [address] Dec, [facility] [address] [id number] [address] [place] [address], [place] [address] Dec, [facility] [address] [id number] [address] [place] [address], [place] [address] Dec, [facility] [address] [id number] [address] [place] [address], [place] [address] Dec, [facility] [address] [id number] [address] [place] [address], [place] [address] October, [facility] [address] [id number] [address] [place] [address], [place] [address] October, [facility] [address] [id number] [address] [place] [address], [place] [address] October, [facility] [address] [id number] [address] [place] [address], [place] [address] October, [facility] [address] [id number] [address] [place] [address], [place] [address] October, [facility] [address] [id number] [address] [place] [address], [place] [address] October, [facility] [address] [id number] [address] [place] [address], [place] [address] October, [facility] [address] [id number] [address] [place] [address], [place] [address] Oct, [facility] [address] [id number] [address] [place] [address], [place] [address] 26 Oct, 2012 [facility] [address] [id number] [address] [place] [address], [place] [address] 24 Oct, 2012 [facility] [address] [id number] [address] [place] [address], [place] [address] 23 Oct, 2012 [facility] [address] [id number] [address] [place] [address], [place] [address] Oct, [facility] [address] [id number] [address] [place] [address], [place] [address] 18 Oct, 2012 [facility] [address] [id number] [address] [place] [address], [place] [address] 17 Oct, 2012 [facility] [address] [id number] [address] [place] [address], [place] [address] 15 Oct, 2012 [facility] [address] [id number] [address] [place] [address], [place] [address] Oct, [facility] [address] [id number] [address] [place] [address], [place] [address] Oct, [facility] [address] [id number] [address] [place] [address], [place] [address] Oct, [facility] [address] [id number] [address] [place] [address], [place] [address] Oct, [facility] [address] [id number] [address] [place] [address], [place] [address] Aug, [facility] [address] [id number] [address] [place] [address], [place] [address] Aug, [facility] [address] [id number] [address] [place] [address], [place] [address] 12 Aug, 2012 [facility] [address] [id number] [address] [place] [address], [place] [address] 06 Aug, 2012 [facility] [address] [id number] [address] [place] [address], [place] [address] 05 Aug, 2012 [facility] [address] [id number] [address] [place] [address], [place] [address] 05 Aug, 2012 [facility] [address] [id number] [address] [place] [address], [place] [address] 20 Aug, 2012 [facility] [address] [id number] [address] [place] [address], [place] [address] 14 Aug, 2012 [facility] [address] [id number] [address] [place] [address], [place] [address] 12 Aug, 2012 [facility] [address] [id number] [address] [place] [address], [place] [address] 11 Aug, 2012 [facility] [address] [id number] [address] [place] [address], [place] [address] 29 Jul, 2012 [facility] [address] [id number] [address] [place] [address], [place] [address] 15 Jul, 2012 [facility] [address] [id number] [address] [place] [address], [place] [address] 08 Jul, 2012 [facility] [address] [id number] [address] [place] [address], [place] [address] 20 Jun, 2012 [facility] [address] [id number] [address] [place] [address], [place] [address] 18 Jun, 2012 [facility] [address] [id number] [address] [place] [address], [place] [address] 18 Jun, 2012 [facility] [address] [id number] [address] [place] [address], [place] [address] 18 Jun, 2012 [facility] [address] [id number] [address] [place] [address], [place] [address] 18 Jun, 2012 [facility] [address] [id number] [address] [place] [address], [place] [address] 14 Jun, 2012 [facility] [address] [id number] [address] [place] [address], [place] [address] 14 Jun, 2012 [facility] [address] [id number] [address] [place] [address], [place] [address] 13 Jun, 2012 [facility] [address] [id number] [address] [place] [address], [place] [address] 13 Jun, 2012 [facility] [address] [id number] [address] [place] [address], [place] [address] 11 Jun, 2012 [facility] [address] [id number] [address] [place] [address], [place] [address] Jun, [facility] [address] [id number] [address] [place] [address], [place] [address] Jun, [facility] [address] [id number] [address] [place] [address], [place] [address] Jun, [facility] [address] [id number] [address] [place] [address], [place] [address] 07 Jun, 2012 [facility] [address] [id number] [address] [place] [address], [place] [address] Jun, [facility] [address] [id number] [address] [place] [address], [place] [address] Jun, [facility] [address] [id number] [address] [place] [address], [place] [address] Jun, [facility] [address] [id number] [address] [place] [address], [place] [address] Jun, [facility] [address] [id number] [address] [place] [address], [place] [address] Jun, [facility] [address] [id number] [address] [place] [address], [place] [id number] 05 Jun, 2012 [facility] [address] [id number] [address] [place] [address], [place] [address] Jun, [facility] [address] [id number] [address] [place] [address], [place] [address] Jun, [facility] [address] [id number] [address] [place] [address], [place] [address] Jun, [facility] [address] [id number] [address] [place] [address], [place] [address] May, [facility] [address] [id number] [address] [place] [address], [place] [address] May, [facility] [address] [id number] [address] [place] [address], [place] [address] May, [facility] [address] [id number] [address] [place] [address], [place] [address] May, [facility] [address] [id number] [address] [place] [address], [place] [address] May, [facility] [address] [id number] [address] [place] [address], [place] [address] May, [facility] [address] [id number] [address] [place] [address], [place] [address] May, [facility] [address] [id number] [address] [place] [address], [place] [address] May, [facility] [address] [id number] [address] [place] [address], [place] [address] Apr, [facility] [address] [id number] [address] [place] [address], [place] [address] 30 Apr, 2012 [facility] [address] [id number] [address] [place] [address], [place] [address] 29 Apr, 2012 [facility] [address] [id number] [address] [place] [address], [place] [address] Apr, [facility] [address] [id number] [address] [place] [address], [place] [address] 16 Apr, 2012 [facility] [address] [id number] [address] [place] [address], [place] [address] Apr, [facility] [address] [id number] [address] [place] [address], [place] [address] Apr, [facility] [address] [id number] [address] [place] [address], [place] [address] Apr, [facility] [address] [id number] [address] [place] [address], [place] [address] Apr, [facility] [address] [id number] [address] [place] [address], [place] [address] Apr, [facility] [address] [id number] [address] [place] [address], [place] [address] Apr, [facility] [address] [id number] [address] [place] [address], [place] [address] Apr, [facility] [address] [id number] [address] [place] [address], [place] [address] Mar, [facility] [address] [id number] [address] [place] [address], [place] [address] 18 Mar, 2012 [facility] [address] [id number] [address] [place] [address], [place] [address] Mar, [facility] [address] [id number] [address] [place] [address], [place] [address] Mar, [facility] [address] [id number] [address] [place] [id number] Mar, [facility] [address] [id number] [address] [place] [id number] Mar, [facility] [address] [id number] [address] [place] [address] Mar, [facility] [address] [id number] [address] [place] [address] Jan, [facility] [address] [id number] [address] [place] [address] Jan, [facility] [address] [id number] [address] [place] [id number] Jan, [facility] [address] [id number] [address] [place] [id number] Jan, [facility] [address] [id number] [address] [place] [address] Jan, [facility] [address] [id number] [facility] [place] [address] Jan, [facility] [address] [id number] [address] [place] [address], [place] [address] 16 Feb, 2012 [facility] [address] [id number] [address] [place] [address], [place] [address] Jan, [facility] [address] [id number] [address] [place] [address], [place] [address] Jan, [facility] [address] [id number] [address] [place] [address], [place] [address] Jan, [facility] [address] [id number] [address] [place] [address], [place] [address] Jan, [facility] [address] [id number] [address] [place] [address], [place] [address] Dec, [facility] [address] [id number] [address] [place] [address], [place] [address] Dec, [facility] [address] [id number] [address] [place] [address], [place] [address] Dec, [facility] [address] [id number] [address] [place] [address], [place] [address] Dec, [facility] [address] [id number] [address] [place] [address], [place] [address] Dec, [facility] [address] [id number] [address] [place] [address], [place] [address] Dec, [facility] [address] [id number] [address] [place] [address], [place] [address] 18 Jan, 2012 [facility] [address] [id number] [address] [place] [address], [place] [address] 17 Jan, 2012 [facility] [address] [id number] [address] [place] [address], [place] [address] 16 Jan, 2012 [facility] [address] [id number] [address] [place] [address], [place] [address] 13 Jan, 2012 [facility] [address] [id number] [address] [place] [address], [place] [address] 13 Jan, 2012 [facility] [address] [id number] [address] [place] [address], [place] [address] 02 Jan, 2012 [facility] [address] [id number] [address] [place] [address], [place] [address] Dec, [facility] [address] [id number] [address] [place] [address], [place] [address] Dec, [facility] [address] [id number] [address] [place] [address], [place] [address] 25 Dec, 2011 [facility] [address] [id number] [address] [place] [address], [place] [address] 18 Dec, 2011 [facility] [address] [id number] [address] [place] [address], [place] [address] 15 Dec, 2011 [facility] [address] [id number] [address] [place] [address], [place] [address] Dec, [facility] [address] [id number] [address] [place] [address], [place] [address] Dec, [facility] [address] [id number] [address] [place] [address], [place] [address] October, [facility] [address] [id number] [address] [place] [address], [place] [address] October, [facility] [address] [id number] [address] [place] [address], [place] [address] October, [facility] [address] [id number] [address] [place] [address], [place] [address] October, [facility] [address] [id number] [address] [place] [address], [place] [address] October, [facility] [address] [id number] [address] [place] [address], [place] [address] October, [facility] [address] [id number] [address] [place] [address], [place] [address] Oct, [facility] [address] [id number] [address] [place] [address], [place] [address] 24 Oct, 2011 [facility] [address] [id number] [address] [place] [address], [place] [address] Oct, [facility] [address] [id number] [address] [place] [address], [place] [address] Oct, [facility] [address] [id number] [address] [place] [address], [place] [address] Oct, [facility] [address] [id number] [address] [place] [address], [place] [address] Oct, [facility] [address] [id number] [address] [place] [address], [place] [address] Oct, [facility] [address] [id number] [address] [place] [address], [place] [address] Aug, [facility] [address] [id number] [address] [place] [address], [place] [address] Aug, [facility] [address] [id number] [address] [place] [address], [place] [address] Aug, [facility] [address] [id number] [address] [place] [address], [place] [address] Aug, [facility] [address] [id number] [address] [place] [address], [place] [address] Aug, [facility] [address] [id number] [address] [place] [address], [place] [address] Aug, [facility] [address] [id number] [address] [place] [address], [place] [address] Aug, [facility] [address] [id number] [address] [place] [address], [place] [address] Aug, [facility] [address] [id number] [address] [place] [address] Aug, [facility] [address] [id number] [address] [place] [address], [place] [address] Jul, [facility] [address] [id number] [address] [place] [address], [place] [address] Jul, [facility] [address] [id number] [address] [place] [address], [place] [address] Jul, [facility] [address] [id number] [address] [place] [address], [place] [address] Jul, [facility] [address] [id number] [address] [place] [address], [place] [address] Jun, [facility] [address] [id number] [address] [place] [address], [place] [address] Jun, [facility] [address] [id number] [address] [place] [address], [place] [address] May, [facility] [address] [id number] [address] [place] [address], [place] [address] May, [facility] [address] [id number] [address] [place] [address], [place] [address] May, [facility] [address] [id number] [address] [place] [address], [place] [address] May, [facility] [address] [id number] [address] [place] [address], [place] [address] May, [facility] [address] [id number] [address] [place] [address] Apr, [facility] [address] [id number] [address] [place] [address], [place] [address] Apr, [facility] [address] [id number] [address] [place] [address], [place] [address] 10 Apr, 2011 [facility] [address] [id number] [address] [place] [address], [place] [address] 15 Jan, 2011 [facility] [address] [id number] [address] [place] [address] Dec, [facility] [address] [id number] [address] [place] [address] October, [facility] [address] [id number] [address] [place] [address] Jun, [facility] [address] [facility] [id number] [address] [place] [address] Apr, [facility] [address] [facility] [id number] [address] [place] [address] Apr, [facility] [address] [facility] [id number] [address] [place] [id number] Apr, [facility] [address] [facility] [id number] [address] [place] [id number] Jun, IMMUNIZATIONS No Known Immunizations SOCIAL HISTORY [...]
--- OUTSIDE RECORDS SUMMARY | 2020-01-25 13:32 | XMS REPORT ---
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 Name Role Phone daisyANEUDY Landon Unavailable PROBLEMS Type Condition ICD9-CM Code [id number] Code Onset Dates Condition S tatus SNOMED Code Problem Chronic hepatitis C without hepatic coma B18.2 Active 321823466 Problem Cannabis abuse F12.10 Active 86820 009 Problem Bipolar 1 disorder F31.9 Active 3 64261445 Problem Attention deficit hyperactivity disorder (ADHD), combi luciano type F90.2 Active 61510251 Problem Attention deficit R41.840 Active 76 096114 Problem Hot flashes due to menopause N95.1 A ctive 346856478 Problem H/O laminectomy Z98.89 Active 1616 97966 Problem Other chronic pain G89.29 Active 8 2035199 Problem Anxiety disorder, unspecified type F41.9 Active 733815787 Problem Bipolar disorder, in partial remission, most rec ent episode hypomanic F31.71 Active 976986493 ALLERGIES No Information ENCOUNTERS Encounter Location Date Diagnosis [facility] [address] [facility] [id number] [address] [place] [phone] Aug, [facility] [address] [facility] [id number] [address] [place] [id number] Jul, [facility] [address] [facility] [id number] [address] [place] [id number] Jul, [facility] [address] [facility] [id number] [address] [place] [phone] Apr, [facility] [address] [facility] [id number] [address] [place] [address] Mar, Hot flashes due to menopause N95.1 ; Anxiety disorder, unspecified type F41.9 ; Low back pain M54.5 and Encounter for immunization Z23 [facility] [address] [id number] [address] [place] [address] Dec, Other chronic pain G89.29 an d Low back pain M54.5 [facility] [address] [id number] [address] [place] [phone] October, [facility] [address] [facility] [id number] [address] [place] [address] October, [facility] [address] [id number] [address] [place] [address] October, [facility] [address] [facility] [id number] [address] [place] [address] October, Other chronic pain G89.29 an d Chronic hepatitis C without hepatic coma B18.2 [facility] [address] [facility] [id number] [address] [place] [address] Aug, Bipolar disorder, in partial remission, most recent episode hypomanic F31.71 ; Attention deficit hyperactivity disorder (ADHD), combined type F90.2 and Anxiety disorder, unspecified type F41.9 [facility] [address] [id number] [address] [place] [phone] Aug, [facility] [address] [facility] [id number] [address] [place] [address] Aug, Bipolar disorder, in partial remission, most recent episode hypomanic F31.71 [facility] [address] [facility] [id number] [address] [place] [address] Aug, [facility] [address] [id number] [address] [place] [address] Aug, Bipolar disorder, in partial remission, most recent episode hypomanic F31.71 [facility] [address] [id number] [address] [place] [address] Aug, Bipolar disorder, in partial remission, most recent episode hypomanic F31.71 ; Attention deficit hyperactivity disorder (ADHD), combined type F90.2 and Anxiety disorder, unspecified type F41.9 [facility] [address] [id number] [address] [place] [address] Aug, Low back pain M54.5 and Pain in left wrist M25.532 [facility] [address] [id number] [address] [place] [address] Aug, [facility] [address] [id number] [address] [place] [address] Jun, [facility] [address] [id number] [address] [place] [address] Apr, Bipolar disorder, in partial remission, most recent episode hypomanic F31.71 [facility] [address] [id number] [address] [place] [address] Apr, [facility] [address] [id number] [address] [place] [address] Apr, Bipolar disorder, in partial remission, most recent episode hypomanic F31.71 ; Attention deficit hyperactivity disorder (ADHD), combined type F90.2 ; Anxiety disorder, unspecified type F41.9 and 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 [facility] [address] [id number] [address] [place] [address] Apr, Bipolar disorder, in partial remission, most recent episode hypomanic F31.71 [facility] [address] [id number] [address] [place] [phone] Apr, Bipolar disorder, in partial remission, most recent episode hypomanic F31.71 [facility] [address] [id number] [address] [place] [address] Mar, [facility] [address] [id number] [address] [place] [address] Mar, Bipolar disorder, in partial remission, most recent episode hypomanic F31.71 ; Encounter for immunization Z23 and Low back pain M54.5 [facility] [address] [id number] [address] [place] [address] Mar, Bipolar disorder, in partial remission, most recent episode hypomanic F31.71 [facility] [address] [id number] [address] [place] [address] Mar, Bipolar disorder, in partial remission, most recent episode hypomanic F31.71 [facility] [address] [id number] [address] [place] [address] Jan, Bipolar disorder, in partial remission, most recent episode hypomanic F31.71 [facility] [address] [id number] [address] [place] [address] Jan, Bipolar disorder, in partial remission, most recent episode hypomanic F31.71 [facility] [address] [id number] [address] [place] [address] Dec, Bipolar disorder, in partial remission, most recent episode hypomanic F31.71 [facility] [address] [facility] [id number] [address] [place] [address] Dec, Bipolar disorder, in partial remission, most recent episode hypomanic F31.71 ; Attention deficit hyperactivity disorder (ADHD), combined type F90.2 ; Anxiety disorder, unspecified type F41.9 and 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 [facility] [address] [facility] [id number] [address] [place] [phone] Dec, Bipolar disorder, in partial remission, most recent episode hypomanic F31.71 [facility] [address] [id number] [address] [place] [address] Dec, Bipolar disorder, in partial remission, most recent episode hypomanic F31.71 [facility] [address] [facility] [id number] [address] [place] [address] October, Bipolar disorder, in partial remission, most recent episode hypomanic F31.71 [facility] [address] [facility] [id number] [address] [place] [address] October, [facility] [address] [facility] [id number] [address] [place] [phone] October, [facility] [address] [facility] [id number] [address] [place] [phone] Oct, Bipolar disorder, in partial remission, most recent episode hypomanic F31.71 ; Attention deficit hyperactivity disorder (ADHD), combined type F90.2 ; Anxiety disorder, unspecified type F41.9 and Encounter for drug screening Z02.83 [facility] [address] [facility] [id number] [address] [place] [id number] Oct, Bipolar disorder, in partial remission, most recent episode hypomanic F31.71 [facility] [address] [facility] [id number] [address] [place] [phone] Oct, Bipolar disorder, in partial remission, most recent episode hypomanic F31.71 [facility] [address] [facility] [id number] [address] [place] [phone] Aug, Bipolar disorder, in partial remission, most recent episode hypomanic F31.71 [facility] [address] [facility] [id number] [address] [place] [address] Aug, Bipolar disorder, in partial remission, most recent episode hypomanic F31.71 [facility] [address] [facility] [id number] [address] [place] [address] Aug, Bipolar disorder, in partial remission, most recent episode hypomanic F31.71 [facility] [address] [facility] [id number] [address] [place] [address] Jul, Bipolar disorder, in partial remission, most recent episode hypomanic F31.71 ; Attention deficit hyperactivity disorder (ADHD), combined type F90.2 and Anxiety disorder, unspecified type F41.9 [facility] [address] [facility] [id number] [address] [place] [phone] Jul, Bipolar disorder, in partial remission, most recent episode hypomanic F31.71 [facility] [address] [facility] [id number] [address] [place] [phone] Jun, Bipolar disorder, in partial remission, most recent episode hypomanic F31.71 [facility] [address] [id number] [address] [place] [address] May, Bipolar disorder, in partial remission, most recent episode hypomanic F31.71 [facility] [address] [facility] [id number] [address] [place] [phone] May, Bipolar disorder, in partial remission, most recent episode hypomanic F31.71 [facility] [address] [facility] [id number] [address] [place] [address] Apr, [facility] [address] [facility] [id number] [address] [place] [address] Apr, Bipolar disorder, in partial remission, most recent episode hypomanic F31.71 ; Attention deficit hyperactivity disorder (ADHD), combined type F90.2 ; Anxiety disorder, unspecified type F41.9 and Cannabis abuse F12.10 [facility] [address] [facility] [id number] [address] [place] [id number] Apr, Attention deficit hyperactiv ity disorder (ADHD), combined type F90.2 [facility] [address] [facility] [id number] [address] [place] [address] Mar, Attention deficit hyperactiv ity disorder (ADHD), combined type F90.2 [facility] [address] [facility] [id number] [address] [place] [id number] 14 Mar, 2017 Anxiety disorder, unspecifie d type F41.9 [facility] [address] [id number] [address] [place] [phone] Jan, Attention deficit hyperactiv ity disorder (ADHD), combined type F90.2 [facility] [address] [facility] [id number] [address] [place] [address] Jan, Anxiety disorder, unspecifie d type F41.9 [facility] [address] [facility] [id number] [address] [place] [address] Jan, Other chronic pain G89.29 ; Chronic hepatitis C without hepatic coma B18.2 and Bipolar 1 disorder F31.9 [facility] [address] [id number] [address] [place] [address] Dec, Attention deficit hyperactiv ity disorder (ADHD), combined type F90.2 [facility] [address] [facility] [id number] [address] [place] [address] Dec, Bipolar disorder, in partial remission, most recent episode hypomanic F31.71 ; Attention deficit hyperactivity disorder (ADHD), combined type F90.2 and Anxiety disorder, unspecified type F41.9 [facility] [address] [facility] [id number] [address] [place] [id number] Dec, Bipolar disorder, in partial remission, most recent episode hypomanic F31.71 ; Attention deficit hyperactivity disorder (ADHD), combined type F90.2 and Anxiety disorder, unspecified type F41.9 [facility] [address] [facility] [id number] [address] [place] [address] Dec, Bipolar 1 disorder F31.9 and Attention deficit R41.840 [place] [id number] [facility] [id number] [address] [place] [address] Oct, Other chronic pain G89.29 ; Alopecia L65.9 and Screening, lipid Z13.220 [facility] [address] [facility] [id number] [address] [place] [phone] Oct, [facility] [address] [facility] [id number] [address] [place] [phone] Aug, [facility] [address] [facility] [id number] [address] [place] [address] Aug, Eustachian tube dysfunction, right H69.81 ; Vertigo R42 and Other chronic pain G89.29 [facility] [address] [id number] [address] [place] [phone] Aug, [facility] [address] [facility] [id number] [address] [place] [phone] Jun, [facility] [address] [facility] [id number] [address] [place] [address] Jun, Low back pain M54.5 and Othe r chronic pain G89.29 [facility] [address] [facility] [id number] [address] [place] [phone] Jun, [facility] [address] [facility] [id number] [address] [place] [phone] May, [facility] [address] [facility] [id number] [address] [place] [phone] Jan, [facility] [address] [facility] [id number] [address] [place] [address] Dec, [facility] [address] [facility] [id number] [address] [place] [phone] Dec, [facility] [address] [place] [id number] [address] [place] [phone] Jun, [facility] [address] [facility] [id number] [address] [place] [phone] Apr, Eustachian tube dysfunction, unspecified laterality H69.80 ; Hot flashes N95.1 and Encounter for immunization Z23 [facility] [address] [facility] [id number] [address] [place] [phone] Jan, [facility] [address] [facility] [id number] [address] [place] [phone] Jan, [facility] [address] [facility] [id number] [address] [place] [phone] Jan, [facility] [address] [facility] [id number] [address] [place] [phone] Jan, [facility] [address] [facility] [id number] [address] [place] [address] Jan, Encounter to establish care V65.8 ; Bipolar 1 disorder 296.7 ; Abdominal pain 789.00 ; Constipation 564.00 ; Hard of hearing 389.9 and Drug abuse 305.90 [facility] [address] [id number] [address] [place] [address], [place] [address] 05 Dec, 2014 [facility] [address] [id number] [address] [place] [address], [place] [address] October, [facility] [address] [id number] [address] [place] [address], [place] [address] October, [facility] [address] [id number] [address] [place] [phone] 30 Oct, 2014 [facility] [address] [id number] [address] [place] [address], [place] [address] Oct, [facility] [address] [id number] [address] [place] [phone] Oct, [facility] [address] [id number] [address] [place] [phone] Aug, [facility] [address] [id number] [address] [place] [address] Aug, [facility] [address] [id number] [address] [place] [id number] Aug, [facility] [address] [id number] [address] [place] [address] Aug, [facility] [address] [id number] [address] [place] [phone] Aug, [facility] [address] [id number] [address] [place] [address] Aug, [facility] [address] [id number] [address] [place] [address] Aug, [facility] [address] [id number] [address] [place] [phone] Aug, [facility] [address] [id number] [address] [place] [address] Aug, [facility] [address] [id number] [address] [place] [address], [place] [address] Aug, 2014 [facility] [address] [id number] [address] [place] [address], [place] [address] Aug, 2014 [facility] [address] [id number] [address] [place] [address], [place] [address] Aug, 2014 [facility] [address] [id number] [address] [place] [address], [place] [address] Aug, 2014 [facility] [address] [id number] [address] [place] [address], [place] [address] Aug, 2014 [facility] [address] [id number] [address] [place] [address], [place] [address] Aug, [facility] [address] [id number] [address] [place] [address], [place] [address] Jul, [facility] [address] [id number] [address] [place] [address], [place] [address] Jul, [facility] [address] [id number] [address] [place] [address], [place] [address] Jul, [facility] [address] [id number] [address] [place] [address], [place] [address] Jul, [facility] [address] [id number] [address] [place] [address], [place] [address] Jul, [facility] [address] [id number] [address] [place] [phone] Jul, [facility] [address] [id number] [address] [place] [address], [place] [address] Jul, [facility] [address] [id number] [address] [place] [address], [place] [address] Jul, [facility] [address] [id number] [address] [place] [address], [place] [address] Jun, [facility] [address] [id number] [address] [place] [address] Jun, [facility] [address] [id number] [address] [place] [address], [place] [address] Jun, [facility] [address] [id number] [address] [place] [address], [place] [address] Jun, [facility] [address] [id number] [address] [place] [address], [place] [address] 18 Jun, 2014 [facility] [address] [id number] [address] [place] [address], [place] [address] Jun, [facility] [address] [id number] [address] [place] [address], [place] [address] Jun, [facility] [address] [id number] [address] [place] [address], [place] [address] Jun, [facility] [address] [id number] [address] [place] [address], [place] [address] Jun, [facility] [address] [id number] [address] [place] [address], [place] [address] Jun, [facility] [address] [id number] [address] [place] [address], [place] [address] Jun, [facility] [address] [id number] [address] [place] [address], [place] [address] May, [facility] [address] [id number] [address] [place] [address], [place] [address] May, [facility] [address] [id number] [address] [place] [address], [place] [address] May, [facility] [address] [id number] [address] [place] [address], [place] [address] May, [facility] [address] [id number] [address] [place] [address], [place] [address] May, [facility] [address] [id number] [address] [place] [address], [place] [address] May, [facility] [address] [id number] [address] [place] [address], [place] [address] May, [facility] [address] [id number] [address] [place] [address], [place] [address] Apr, [facility] [address] [id number] [address] [place] [address], [place] [address] Apr, [facility] [address] [id number] [address] [place] [address], [place] [address] Apr, [facility] [address] [id number] [address] [place] [address], [place] [address] Apr, [facility] [address] [id number] [address] [place] [address], [place] [address] Apr, [facility] [address] [id number] [address] [place] [address], [place] [address] Apr, [facility] [address] [id number] [address] [place] [address], [place] [address] Mar, [facility] [address] [id number] [address] [place] [address], [place] [address] Mar, [facility] [address] [id number] [address] [place] [address], [place] [address] Mar, [facility] [address] [id number] [address] [place] [address], [place] [address] Mar, [facility] [address] [id number] [address] [place] [address], [place] [address] Mar, [facility] [address] [id number] [address] [place] [address], [place] [address] Mar, [facility] [address] [id number] [address] [place] [address], [place] [address] Jan, [facility] [address] [id number] [address] [place] [address], [place] [address] Jan, [facility] [address] [id number] [address] [place] [address], [place] [address] Jan, [facility] [address] [id number] [facility] [place] [id number] Jan, [facility] [address] [id number] [address] [place] [address], [place] [id number] Dec, [facility] [address] [id number] [address] [place] [address], [place] [id number] Dec, [facility] [address] [id number] [address] [place] [address], [place] [id number] Dec, [facility] [address] [id number] [address] [place] [address], [place] [address] Dec, [facility] [address] [id number] [address] [place] [address], [place] [id number] Dec, [facility] [address] [id number] [address] [place] [address], [place] [id number] Dec, [facility] [address] [id number] [address] [place] [address], [place] [id number] Dec, [facility] [address] [id number] [address] [place] [address], [place] [id number] Dec, [facility] [address] [id number] [address] [place] [address], [place] [address] Dec, [facility] [address] [id number] [address] [place] [address], [place] [id number] Dec, [facility] [address] [id number] [address] [place] [address], [place] [address] Dec, [facility] [address] [id number] [address] [place] [address], [place] [id number] Dec, [facility] [address] [id number] [address] [place] [address], [place] [id number] October, [facility] [address] [id number] [address] [place] [address], [place] [address] October, [facility] [address] [id number] [address] [place] [address], [place] [id number] October, [facility] [address] [id number] [address] [place] [address], [place] [id number] October, [facility] [address] [id number] [address] [place] [address], [place] [address] October, [facility] [address] [id number] [address] [place] [address], [place] [address] October, [facility] [address] [id number] [address] [place] [address], [place] [address] Oct, [facility] [address] [id number] [address] [place] [address], [place] [address] Oct, [facility] [address] [id number] [address] [place] [address], [place] [address] Oct, [facility] [address] [id number] [address] [place] [address], [place] [address] Oct, [facility] [address] [id number] [address] [place] [address], [place] [address] Oct, [facility] [address] [id number] [address] [place] [address], [place] [address] Oct, [facility] [address] [id number] [address] [place] [address], [place] [address] Oct, [facility] [address] [id number] [address] [place] [address], [place] [address] Oct, [facility] [address] [id number] [address] [place] [address], [place] [address] Oct, [facility] [address] [id number] [address] [place] [address], [place] [address] Oct, [facility] [address] [id number] [address] [place] [address], [place] [address] Oct, [facility] [address] [id number] [address] [place] [address], [place] [address] Oct, [facility] [address] [id number] [facility] [place] [address] 15 Aug, 2013 [facility] [address] [id number] [address] [place] [address], [place] [address] 15 Aug, 2013 [facility] [address] [id number] [facility] [place] [address] 11 Aug, 2013 [facility] [address] [id number] [address] [place] [address], [place] [address] 11 Aug, 2013 [facility] [address] [id number] [address] [place] [address], [place] [address] 05 Aug, 2013 [facility] [address] [id number] [address] [place] [address], [place] [address] 05 Aug, 2013 [facility] [address] [id number] [address] [place] [address], [place] [address] 04 Aug, 2013 [facility] [address] [id number] [address] [place] [address], [place] [address] Aug, [facility] [address] [id number] [address] [place] [address], [place] [address] Aug, [facility] [address] [id number] [address] [place] [address], [place] [address] 24 Aug, 2013 [facility] [address] [id number] [address] [place] [address], [place] [address] 24 Aug, 2013 [facility] [address] [id number] [address] [place] [address], [place] [address] Aug, [facility] [address] [id number] [address] [place] [address], [place] [address] Aug, [facility] [address] [id number] [address] [place] [address], [place] [address] 20 Aug, 2013 [facility] [address] [id number] [address] [place] [address], [place] [address] 14 Aug, 2013 [facility] [address] [id number] [address] [place] [address], [place] [address] 14 Aug, 2013 [facility] [address] [id number] [address] [place] [address], [place] [address] 14 Aug, 2013 [facility] [address] [id number] [address] [place] [address], [place] [address] 14 Aug, 2013 [facility] [address] [id number] [address] [place] [address], [place] [address] 07 Aug, 2013 [facility] [address] [id number] [address] [place] [address], [place] [address] 07 Aug, 2013 [facility] [address] [id number] [address] [place] [address], [place] [address] 06 Aug, 2013 [facility] [address] [id number] [address] [place] [address], [place] [address] 06 Aug, 2013 [facility] [address] [id number] [address] [place] [address], [place] [address] 04 Aug, 2013 [facility] [address] [id number] [address] [place] [address], [place] [address] 04 Aug, 2013 [facility] [address] [id number] [address] [place] [address], [place] [address] 03 Aug, 2013 [facility] [address] [id number] [address] [place] [address], [place] [address] Jul, [facility] [address] [id number] [address] [place] [address], [place] [address] Jul, [facility] [address] [id number] [address] [place] [address], [place] [address] Jul, [facility] [address] [id number] [address] [place] [address], [place] [address] Jul, [facility] [address] [id number] [address] [place] [address], [place] [address] Jul, [facility] [address] [id number] [address] [place] [address], [place] [address] Jul, [facility] [address] [id number] [address] [place] [address], [place] [address] Jul, [facility] [address] [id number] [address] [place] [address], [place] [address] Jul, [facility] [address] [id number] [address] [place] [address], [place] [address] Jul, [facility] [address] [id number] [address] [place] [address], [place] [address] Jul, [facility] [address] [id number] [address] [place] [address], [place] [address] Jul, [facility] [address] [id number] [address] [place] [address], [place] [address] Jul, [facility] [address] [id number] [address] [place] [address], [place] [address] Jul, [facility] [address] [id number] [address] [place] [address], [place] [address] Jul, [facility] [address] [id number] [address] [place] [address], [place] [address] Jul, [facility] [address] [id number] [address] [place] [address], [place] [address] Jul, [facility] [address] [id number] [address] [place] [address], [place] [address] Jul, [facility] [address] [id number] [address] [place] [address], [place] [address] Jul, [facility] [address] [id number] [address] [place] [address], [place] [address] Jul, [facility] [address] [id number] [address] [place] [address], [place] [address] Jul, [facility] [address] [id number] [address] [place] [address], [place] [address] Jun, [facility] [address] [id number] [address] [place] [address], [place] [address] [address], [address] [facility] [address] [id number] [address] [place] [address], [place] [address] 30 Jun, 2013 [facility] [address] [id number] [address] [place] [address], [place] [address] [address], [address] [facility] [address] [id number] [address] [place] [address], [place] [address] Jun, [facility] [address] [id number] [address] [place] [address], [place] [address] Jun, [facility] [address] [id number] [address] [place] [address], [place] [address] Jun, [facility] [address] [id number] [address] [place] [address], [place] [address] Jun, [facility] [address] [id number] [address] [place] [address], [place] [address] Jun, [facility] [address] [id number] [address] [place] [address], [place] [address] Jun, [facility] [address] [id number] [address] [place] [address], [place] [address] Jun, [facility] [address] [id number] [address] [place] [address], [place] [address] Jun, [facility] [address] [id number] [address] [place] [address], [place] [address] Jun, [facility] [address] [id number] [address] [place] [address], [place] [address] Jun, [facility] [address] [id number] [address] [place] [address], [place] [address] Jun, [facility] [address] [id number] [address] [place] [address], [place] [address] Jun, [facility] [address] [id number] [address] [place] [address], [place] [address] Jun, [facility] [address] [id number] [address] [place] [address], [place] [address] 17 Jun, 2013 [facility] [address] [id number] [address] [place] [address], [place] [address] 17 Jun, 2013 [facility] [address] [id number] [address] [place] [address], [place] [address] 13 Jun, 2013 [facility] [address] [id number] [address] [place] [address], [place] [address] 12 Jun, 2013 [facility] [address] [id number] [address] [place] [address], [place] [address] 12 Jun, 2013 [facility] [address] [id number] [address] [place] [address], [place] [address] Jun, [facility] [address] [id number] [address] [place] [address], [place] [address] 05 Jun, 2013 [facility] [address] [id number] [address] [place] [address], [place] [address] 05 Jun, 2013 [facility] [address] [id number] [address] [place] [address], [place] [address] Jun, [facility] [address] [id number] [address] [place] [address], [place] [address] 04 Jun, 2013 [facility] [address] [id number] [address] [place] [address], [place] [address] May, [facility] [address] [id number] [address] [place] [address], [place] [address] May, [facility] [address] [id number] [address] [place] [address], [place] [address] May, [facility] [address] [id number] [address] [place] [address], [place] [address] May, [facility] [address] [id number] [address] [place] [address], [place] [address] 05 May, 2013 [facility] [address] [id number] [address] [place] [address], [place] [address] May, [facility] [address] [id number] [address] [place] [address], [place] [address] 30 Apr, 2013 [facility] [address] [id number] [address] [place] [address], [place] [address] 30 Apr, 2013 [facility] [address] [id number] [address] [place] [address], [place] [address] Apr, [facility] [address] [id number] [address] [place] [address], [place] [address] 30 Apr, 2013 [facility] [address] [id number] [address] [place] [address], [place] [address] Apr, [facility] [address] [id number] [address] [place] [address] Apr, [facility] [address] [id number] [address] [place] [address], [place] [address] Apr, [facility] [address] [id number] [address] [place] [address] Apr, [facility] [address] [id number] [address] [place] [address], [place] [address] 26 Mar, 2012 [facility] [address] [id number] [address] [place] [address] 24 Sep, 2012 [facility] [address] [id number] [address] [place] [address] 17 Sep, 2012 [facility] [address] [id number] [address] [place] [address] 17 Sep, 2012 [facility] [address] [id number] [address] [place] [address], [place] [address] 11 Sep, 2012 [facility] [address] [id number] [address] [place] [address] 10 Sep, 2012 [facility] [address] [id number] [address] [place] [address] 05 Sep, 2012 [facility] [address] [id number] [address] [place] [address], [place] [address] 04 Mar, 2013 [facility] [address] [id number] [address] [place] [address], [place] [address] Jan, [facility] [address] [id number] [address] [place] [address], [place] [address] Jan, [facility] [address] [id number] [address] [place] [address], [place] [address] Jan, [facility] [address] [id number] [address] [place] [address], [place] [address] Jan, [facility] [address] [id number] [address] [place] [address], [place] [address] Jan, [facility] [address] [id number] [address] [place] [address], [place] [address] Jan, [facility] [address] [id number] [address] [place] [address], [place] [address] Dec, [facility] [address] [id number] [address] [place] [address], [place] [address] 24 Dec, 2012 [facility] [address] [id number] [address] [place] [address], [place] [address] Dec, [facility] [address] [id number] [address] [place] [address], [place] [address] Dec, [facility] [address] [id number] [address] [place] [address], [place] [address] 18 Dec, 2012 [facility] [address] [id number] [address] [place] [address], [place] [address] 17 Dec, 2012 [facility] [address] [id number] [address] [place] [address], [place] [address] 16 Dec, 2012 [facility] [address] [id number] [address] [place] [address], [place] [address] 16 Dec, 2012 [facility] [address] [id number] [address] [place] [address], [place] [address] [address], [address] [facility] [address] [id number] [address] [place] [address], [place] [address] Dec, [facility] [address] [id number] [address] [place] [address], [place] [address] Dec, [facility] [address] [id number] [address] [place] [address], [place] [address] Dec, [facility] [address] [id number] [address] [place] [address], [place] [address] Dec, [facility] [address] [id number] [address] [place] [address], [place] [address] Dec, [facility] [address] [id number] [address] [place] [address], [place] [address] Dec, [facility] [address] [id number] [address] [place] [address], [place] [address] Dec, [facility] [address] [id number] [address] [place] [address], [place] [address] October, [facility] [address] [id number] [address] [place] [address], [place] [address] October, [facility] [address] [id number] [address] [place] [address], [place] [address] October, [facility] [address] [id number] [address] [place] [address], [place] [address] October, [facility] [address] [id number] [address] [place] [address], [place] [address] October, [facility] [address] [id number] [address] [place] [address], [place] [address] October, [facility] [address] [id number] [address] [place] [address], [place] [address] October, [facility] [address] [id number] [address] [place] [address], [place] [address] Oct, [facility] [address] [id number] [address] [place] [address], [place] [address] 26 Oct, 2012 [facility] [address] [id number] [address] [place] [address], [place] [address] 24 Oct, 2012 [facility] [address] [id number] [address] [place] [address], [place] [address] 23 Oct, 2012 [facility] [address] [id number] [address] [place] [address], [place] [address] Oct, [facility] [address] [id number] [address] [place] [address], [place] [address] 18 Oct, 2012 [facility] [address] [id number] [address] [place] [address], [place] [address] 17 Oct, 2012 [facility] [address] [id number] [address] [place] [address], [place] [address] 15 Oct, 2012 [facility] [address] [id number] [address] [place] [address], [place] [address] Oct, [facility] [address] [id number] [address] [place] [address], [place] [address] Oct, [facility] [address] [id number] [address] [place] [address], [place] [address] Oct, [facility] [address] [id number] [address] [place] [address], [place] [address] Oct, [facility] [address] [id number] [address] [place] [address], [place] [address] Aug, [facility] [address] [id number] [address] [place] [address], [place] [address] Aug, [facility] [address] [id number] [address] [place] [address], [place] [address] 12 Aug, 2012 [facility] [address] [id number] [address] [place] [address], [place] [address] 06 Aug, 2012 [facility] [address] [id number] [address] [place] [address], [place] [address] 05 Aug, 2012 [facility] [address] [id number] [address] [place] [address], [place] [address] 05 Aug, 2012 [facility] [address] [id number] [address] [place] [address], [place] [address] 20 Aug, 2012 [facility] [address] [id number] [address] [place] [address], [place] [address] 14 Aug, 2012 [facility] [address] [id number] [address] [place] [address], [place] [address] 12 Aug, 2012 [facility] [address] [id number] [address] [place] [address], [place] [address] 11 Aug, 2012 [facility] [address] [id number] [address] [place] [address], [place] [address] 29 Jul, 2012 [facility] [address] [id number] [address] [place] [address], [place] [address] 15 Jul, 2012 [facility] [address] [id number] [address] [place] [address], [place] [address] [address], [address] [facility] [address] [id number] [address] [place] [address], [place] [address] [address] Jun, [address] [facility] [address] [id number] [address] [place] [address], [place] [address] [address], [address] [facility] [address] [id number] [address] [place] [address], [place] [address] 18 Jun, 2012 [facility] [address] [id number] [address] [place] [address], [place] [address] 18 Jun, 2012 [facility] [address] [id number] [address] [place] [address], [place] [address] 18 Jun, 2012 [facility] [address] [id number] [address] [place] [address], [place] [address] 14 Jun, 2012 [facility] [address] [id number] [address] [place] [address], [place] [address] 14 Jun, 2012 [facility] [address] [id number] [address] [place] [address], [place] [address] 13 Jun, 2012 [facility] [address] [id number] [address] [place] [address], [place] [address] 13 Jun, 2012 [facility] [address] [id number] [address] [place] [address], [place] [address] 11 Jun, 2012 [facility] [address] [id number] [address] [place] [address], [place] [address] Jun, [facility] [address] [id number] [address] [place] [address], [place] [address] Jun, [facility] [address] [id number] [address] [place] [address], [place] [address] Jun, [facility] [address] [id number] [address] [place] [address], [place] [address] 07 Jun, 2012 [facility] [address] [id number] [address] [place] [address], [place] [address] Jun, [facility] [address] [id number] [address] [place] [address], [place] [address] Jun, [facility] [address] [id number] [address] [place] [address], [place] [address] Jun, [facility] [address] [id number] [address] [place] [address], [place] [address] Jun, [facility] [address] [id number] [address] [place] [address], [place] [address] Jun, [facility] [address] [id number] [address] [place] [address], [place] [address] 05 Jun, 2012 [facility] [address] [id number] [address] [place] [address], [place] [address] Jun, [facility] [address] [id number] [address] [place] [address], [place] [address] Jun, [facility] [address] [id number] [address] [place] [address], [place] [address] Jun, [facility] [address] [id number] [address] [place] [address], [place] [address] May, [facility] [address] [id number] [address] [place] [address], [place] [address] May, [facility] [address] [id number] [address] [place] [address], [place] [address] May, [facility] [address] [id number] [address] [place] [address], [place] [address] May, [facility] [address] [id number] [address] [place] [address], [place] [address] May, [facility] [address] [id number] [address] [place] [address], [place] [address] May, [facility] [address] [id number] [address] [place] [address], [place] [address] May, [facility] [address] [id number] [address] [place] [address], [place] [address] May, [facility] [address] [id number] [address] [place] [address], [place] [address] Apr, [facility] [address] [id number] [address] [place] [address], [place] [address] 30 Apr, 2012 [facility] [address] [id number] [address] [place] [address], [place] [address] 29 Apr, 2012 [facility] [address] [id number] [address] [place] [address], [place] [address] Apr, [facility] [address] [id number] [address] [place] [address], [place] [address] 16 Apr, 2012 [facility] [address] [id number] [address] [place] [address], [place] [address] Apr, [facility] [address] [id number] [address] [place] [address], [place] [address] Apr, [facility] [address] [id number] [address] [place] [address], [place] [address] Apr, [facility] [address] [id number] [address] [place] [address], [place] [address] Apr, [facility] [address] [id number] [address] [place] [address], [place] [address] Apr, [facility] [address] [id number] [address] [place] [address], [place] [address] Apr, [facility] [address] [id number] [address] [place] [address], [place] [address] Apr, [facility] [address] [id number] [address] [place] [address], [place] [address] Mar, [facility] [address] [id number] [address] [place] [address], [place] [address] 18 Mar, 2012 [facility] [address] [id number] [address] [place] [address], [place] [address] Mar, [facility] [address] [id number] [address] [place] [address], [place] [address] Mar, [facility] [address] [id number] [address] [place] [id number] Mar, [facility] [address] [address] [id number] [address] [place] [address] [id number] Mar, [facility] [address] [id number] [address] [place] [id number] Mar, [facility] [address] [id number] [address] [place] [id number] Jan, [facility] [address] [id number] [address] [place] [phone] Jan, [facility] [address] [id number] [address] [place] [address] [id number] Jan, [facility] [address] [id number] [address] [place] [id number] Jan, [facility] [address] [id number] [address] [place] [id number] Jan, [facility] [address] [id number] [facility] [address] Jan, [facility] [address] [id number] [address] [place] [address], [place] [address] 16 Feb, 2012 [facility] [address] [id number] [address] [place] [address], [place] [address] Jan, [facility] [address] [id number] [address] [place] [address], [place] [address] Jan, [facility] [address] [id number] [address] [place] [address], [place] [id number] Jan, [facility] [address] [id number] [address] [place] [address], [place] [address] Jan, [facility] [address] [id number] [address] [place] [address], [place] [address] Dec, [facility] [address] [id number] [address] [place] [address], [place] [address] Dec, [facility] [address] [id number] [address] [place] [address], [place] [address] Dec, [facility] [address] [id number] [address] [place] [address], [place] [id number] Dec, [facility] [address] [id number] [address] [place] [address], [place] [address] Dec, [facility] [address] [id number] [address] [place] [address], [place] [address] Dec, [facility] [address] [id number] [address] [place] [address], [place] [address] 18 Jan, 2012 [facility] [address] [id number] [address] [place] [address], [place] [address] 17 Jan, 2012 [facility] [address] [id number] [address] [place] [address], [place] [id number] 16 Jan, 2012 [facility] [address] [id number] [address] [place] [address], [place] [id number] 13 Jan, 2012 [facility] [address] [id number] [address] [place] [address], [place] [address] 13 Jan, 2012 [facility] [address] [id number] [address] [place] [address], [place] [address] 02 Jan, 2012 [facility] [address] [id number] [address] [place] [address], [place] [address] Dec, [facility] [address] [id number] [address] [place] [address], [place] [address] Dec, [facility] [address] [id number] [address] [place] [address], [place] [address] 25 Dec, 2011 [facility] [address] [id number] [address] [place] [address], [place] [address] 18 Dec, 2011 [facility] [address] [id number] [address] [place] [address], [place] [address] 15 Dec, 2011 [facility] [address] [id number] [address] [place] [address], [place] [address] Dec, [facility] [address] [id number] [address] [place] [address], [place] [address] Dec, [facility] [address] [id number] [address] [place] [address], [place] [address] October, [facility] [address] [id number] [address] [place] [address], [place] [address] October, [facility] [address] [id number] [address] [place] [address], [place] [address] October, [facility] [address] [id number] [address] [place] [address], [place] [address] October, [facility] [address] [id number] [address] [place] [address], [place] [address] October, [facility] [address] [id number] [address] [place] [address], [place] [address] October, [facility] [address] [id number] [address] [place] [address], [place] [address] Oct, [facility] [address] [id number] [address] [place] [address], [place] [address] [address], [address] [facility] [address] [id number] [address] [place] [address], [place] [address] Oct, [facility] [address] [id number] [address] [place] [address], [place] [address] Oct, [facility] [address] [id number] [address] [place] [address], [place] [address] Oct, [facility] [address] [id number] [address] [place] [address], [place] [address] Oct, [facility] [address] [id number] [address] [place] [address], [place] [address] Oct, [facility] [address] [id number] [address] [place] [address], [place] [address] Aug, [facility] [address] [id number] [address] [place] [address], [place] [address] Aug, [facility] [address] [id number] [address] [place] [address], [place] [address] Aug, [facility] [address] [id number] [address] [place] [address], [place] [address] Aug, [facility] [address] [id number] [address] [place] [address], [place] [address] Aug, [facility] [address] [id number] [address] [place] [address], [place] [address] Aug, [facility] [address] [id number] [address] [place] [address], [place] [address] Aug, [facility] [address] [id number] [address] [place] [address], [place] [address] Aug, [facility] [address] [id number] [address] [place] [id number] Aug, [facility] [address] [id number] [address] [place] [address], [place] [address] Jul, [facility] [address] [id number] [address] [place] [address], [place] [address] Jul, [facility] [address] [id number] [address] [place] [address], [place] [address] Jul, [facility] [address] [id number] [address] [place] [address], [place] [address] Jul, [facility] [address] [id number] [address] [place] [address], [place] [address] Jun, [facility] [address] [id number] [address] [place] [address], [place] [address] Jun, [facility] [address] [id number] [address] [place] [address], [place] [address] May, [facility] [address] [id number] [address] [place] [address], [place] [address] May, [facility] [address] [id number] [address] [place] [address], [place] [address] May, [facility] [address] [id number] [address] [place] [address], [place] [address] May, [facility] [address] [id number] [address] [place] [address], [place] [address] May, [facility] [address] [id number] [address] [place] [id number] Apr, [facility] [address] [id number] [address] [place] [address], [place] [address] Apr, [facility] [address] [id number] [address] [place] [address], [place] [address] 10 Apr, 2011 [facility] [address] [id number] [address] [place] [address], [place] [address] 15 Jan, 2011 [facility] [address] [id number] [address] [place] [id number] Dec, [facility] [address] [id number] [address] [place] [id number] October, [facility] [address] [id number] [address] [place] [id number] Jun, [facility] [address] [facility] [id number] [address] [place] [id number] Apr, [facility] [address] [facility] [id number] [address] [place] [id number] Apr, [facility] [address] [facility] [id number] [address] [place] [id number] Apr, [facility] [address] [facility] [id number] [address] [place] [phone] Jun, IMMUNIZATIONS No Known Immunizations SOCIAL HISTORY [...]
--- OUTSIDE RECORDS SUMMARY | 2020-01-25 13:32 | XMS REPORT ---
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29 Active 8 3598997 Problem Anxiety disorder, unspecified type F41.9 Active 203485430 Problem Bipolar disorder, in partial remission, most rec ent episode hypomanic F31.71 Active [id number] ALLERGIES No Information ENCOUNTERS Encounter Location Date Diagnosis [place] [address] [facility] [id number] [address] [place] [address] Aug, [facility] [address] [facility] [id number] [address] [place] [address] Jul, [facility] [address] [facility] [id number] [address] [place] [address] Jul, [facility] [address] [facility] [id number] [address] [place] [address] Apr, [place] [address] [facility] [id number] [address] [place] [address] Mar, Hot flashes due to menopause N95.1 ; Anxiety disorder, unspecified type F41.9 ; Low back pain M54.5 and Encounter for immunization Z23 [facility] [address] [id number] [address] [place] [address] Dec, Other chronic pain G89.29 an d Low back pain M54.5 [facility] [address] [id number] [address] [place] [address] October, [facility] [address] [id number] [address] [place] [address] October, [facility] [address] [id number] [address] [place] [address] October, [facility] [address] [id number] [address] [place] [address] October, Other chronic pain G89.29 an d Chronic hepatitis C without hepatic coma B18.2 [facility] [address] [id number] [address] [place] [address] Aug, Bipolar disorder, in partial remission, most recent episode hypomanic F31.71 ; Attention deficit hyperactivity disorder (ADHD), combined type F90.2 and Anxiety disorder, unspecified type F41.9 [facility] [address] [id number] [address] [place] [address] Aug, [facility] [address] [id number] [address] [place] [phone] Aug, Bipolar disorder, in partial remission, most recent episode hypomanic F31.71 [facility] [address] [id number] [address] [place] [address] Aug, [facility] [address] [id number] [address] [place] [address] Aug, Bipolar disorder, in partial remission, most recent episode hypomanic F31.71 [facility] [address] [id number] [address] [place] [address] Aug, Bipolar disorder, in partial remission, most recent episode hypomanic F31.71 ; Attention deficit hyperactivity disorder (ADHD), combined type F90.2 and Anxiety disorder, unspecified type F41.9 [facility] [address] [id number] [address] [place] [address] Aug, Low back pain M54.5 and Pain in left wrist M25.532 [facility] [address] [id number] [address] [place] [address] Aug, [facility] [address] [id number] [address] [place] [phone] Jun, [facility] [address] [id number] [address] [place] [address] Apr, Bipolar disorder, in partial remission, most recent episode hypomanic F31.71 [facility] [address] [id number] [address] [place] [address] Apr, [facility] [address] [id number] [address] [place] [address] Apr, Bipolar disorder, in partial remission, most recent episode hypomanic F31.71 ; Attention deficit hyperactivity disorder (ADHD), combined type F90.2 ; Anxiety disorder, unspecified type F41.9 and Other long term care pharmacist (current) drug therapy Z79.899 [facility] [address] [id number] [address] [place] [address] Apr, Bipolar disorder, in partial remission, most recent episode hypomanic F31.71 [facility] [address] [id number] [address] [place] [address] Apr, Bipolar disorder, in partial remission, most recent episode hypomanic F31.71 [facility] [address] [id number] [address] [place] [address] Mar, [facility] [address] [id number] [address] [place] [address] Mar, Bipolar disorder, in partial remission, most recent episode hypomanic F31.71 ; Encounter for immunization Z23 and Low back pain M54.5 [facility] [address] [id number] [address] [place] [address] Mar, Bipolar disorder, in partial remission, most recent episode hypomanic F31.71 [facility] [address] [id number] [address] [place] [address] Mar, Bipolar disorder, in partial remission, most recent episode hypomanic F31.71 [facility] [address] [id number] [address] [place] [address] Jan, Bipolar disorder, in partial remission, most recent episode hypomanic F31.71 [facility] [address] [id number] [address] [place] [address] Jan, Bipolar disorder, in partial remission, most recent episode hypomanic F31.71 [facility] [address] [id number] [address] [place] [address] Dec, Bipolar disorder, in partial remission, most recent episode hypomanic F31.71 [facility] [address] [facility] [id number] [address] [place] [address] Dec, Bipolar disorder, in partial remission, most recent episode hypomanic F31.71 ; Attention deficit hyperactivity disorder (ADHD), combined type F90.2 ; Anxiety disorder, unspecified type F41.9 and Other long term care pharmacist (current) drug therapy Z79.899 [facility] [address] [id number] [address] [place] [address] Dec, Bipolar disorder, in partial remission, most recent episode hypomanic F31.71 [facility] [address] [id number] [address] [place] [address] Dec, Bipolar disorder, in partial remission, most recent episode hypomanic F31.71 [facility] [address] [facility] [id number] [address] [place] [address] October, Bipolar disorder, in partial remission, most recent episode hypomanic F31.71 [facility] [address] [id number] [address] [place] [address] October, [facility] [address] [facility] [id number] [address] [place] [address] October, [facility] [address] [facility] [id number] [address] [place] [address] Oct, Bipolar disorder, in partial remission, most recent episode hypomanic F31.71 ; Attention deficit hyperactivity disorder (ADHD), combined type F90.2 ; Anxiety disorder, unspecified type F41.9 and Encounter for drug screening Z02.83 [facility] [address] [facility] [id number] [address] [place] [address] Oct, Bipolar disorder, in partial remission, most recent episode hypomanic F31.71 [facility] [address] [facility] [id number] [address] [place] [address] Oct, Bipolar disorder, in partial remission, most recent episode hypomanic F31.71 [facility] [address] [facility] [id number] [address] [place] [address] Aug, Bipolar disorder, in partial remission, most recent episode hypomanic F31.71 [facility] [address] [facility] [id number] [address] [place] [address] Aug, Bipolar disorder, in partial remission, most recent episode hypomanic F31.71 [facility] [address] [facility] [id number] [address] [place] [address] Aug, Bipolar disorder, in partial remission, most recent episode hypomanic F31.71 [facility] [address] [facility] [id number] [address] [place] [address] Jul, Bipolar disorder, in partial remission, most recent episode hypomanic F31.71 ; Attention deficit hyperactivity disorder (ADHD), combined type F90.2 and Anxiety disorder, unspecified type F41.9 [facility] [address] [facility] [id number] [address] [place] [address] Jul, Bipolar disorder, in partial remission, most recent episode hypomanic F31.71 [facility] [address] [facility] [id number] [address] [place] [address] Jun, Bipolar disorder, in partial remission, most recent episode hypomanic F31.71 [facility] [address] [id number] [address] [place] [address] May, Bipolar disorder, in partial remission, most recent episode hypomanic F31.71 [facility] [address] [id number] [address] [place] [address] May, Bipolar disorder, in partial remission, most recent episode hypomanic F31.71 [facility] [address] [id number] [address] [place] [address] Apr, [facility] [address] [id number] [address] [place] [address] Apr, Bipolar disorder, in partial remission, most recent episode hypomanic F31.71 ; Attention deficit hyperactivity disorder (ADHD), combined type F90.2 ; Anxiety disorder, unspecified type F41.9 and Cannabis abuse F12.10 [facility] [address] [facility] [id number] [address] [place] [address] Apr, Attention deficit hyperactiv ity disorder (ADHD), combined type F90.2 [facility] [address] [facility] [id number] [address] [place] [address] Mar, Attention deficit hyperactiv ity disorder (ADHD), combined type F90.2 [facility] [address] [facility] [id number] [address] [place] [address] Mar, Anxiety disorder, unspecifie d type F41.9 [facility] [address] [id number] [address] [place] [address] Jan, Attention deficit hyperactiv ity disorder (ADHD), combined type F90.2 [facility] [address] [facility] [id number] [address] [place] [address] Jan, Anxiety disorder, unspecifie d type F41.9 [facility] [address] [facility] [id number] [address] [place] [address] Jan, Other chronic pain G89.29 ; Chronic hepatitis C without hepatic coma B18.2 and Bipolar 1 disorder F31.9 [facility] [address] [id number] [address] [place] [address] Dec, Attention deficit hyperactiv ity disorder (ADHD), combined type F90.2 [facility] [address] [facility] [id number] [address] [place] [address] Dec, Bipolar disorder, in partial remission, most recent episode hypomanic F31.71 ; Attention deficit hyperactivity disorder (ADHD), combined type F90.2 and Anxiety disorder, unspecified type F41.9 [facility] [address] [id number] [address] [place] [address] Dec, Bipolar disorder, in partial remission, most recent episode hypomanic F31.71 ; Attention deficit hyperactivity disorder (ADHD), combined type F90.2 and Anxiety disorder, unspecified type F41.9 [facility] [address] [facility] [id number] [address] [place] [address] Dec, Bipolar 1 disorder F31.9 and Attention deficit R41.840 [facility] [address] [facility] [id number] [address] [place] [address] Oct, Other chronic pain G89.29 ; Alopecia L65.9 and Screening, lipid Z13.220 [facility] [address] [facility] [id number] [address] [place] [address] Oct, [facility] [address] [facility] [id number] [address] [place] [address] Aug, [facility] [address] [facility] [id number] [address] [place] [address] Aug, Eustachian tube dysfunction, right H69.81 ; Vertigo R42 and Other chronic pain G89.29 [facility] [address] [id number] [address] [place] [address] Aug, [facility] [address] [facility] [id number] [address] [place] [address] Jun, [facility] [address] [facility] [id number] [address] [place] [address] 14 Jun, 2016 Low back pain M54.5 and Othe r chronic pain G89.29 [facility] [address] [facility] [id number] [address] [place] [address] Jun, [facility] [address] [facility] [id number] [address] [place] [address] May, [facility] [address] [facility] [id number] [address] [place] [address] Jan, [facility] [address] [facility] [id number] [address] [place] [address] Dec, [facility] [address] [place] [id number] [address] [place] [address] Dec, [facility] [address] [place] [id number] [address] [place] [address] Jun, [facility] [address] [place] [id number] [address] [place] [address] Apr, Eustachian tube dysfunction, unspecified laterality H69.80 ; Hot flashes N95.1 and Encounter for immunization Z23 [facility] [address] [place] [id number] [address] [place] [address] Jan, [facility] [address] [place] [id number] [address] [place] [address] Jan, [facility] [address] [place] [id number] [address] [place] [address] Jan, [facility] [address] [facility] [id number] [address] [place] [address] Jan, [facility] [address] [place] [id number] [address] [place] [address] Jan, Encounter to establish care V65.8 ; Bipolar 1 disorder 296.7 ; Abdominal pain 789.00 ; Constipation 564.00 ; Hard of hearing 389.9 and Drug abuse 305.90 [facility] [address] [id number] [address] [place] [address] 05 Dec, 2014 [facility] [address] [id number] [address] [place] [address] October, [facility] [address] [id number] [address] [place] [address] October, [facility] [address] [id number] [address] [place] [address] 30 Oct, 2014 [facility] [address] [id number] [address] [place] [address] Oct, [facility] [address] [id number] [address] [place] [address] Oct, [facility] [address] [id number] [address] [place] [address] Aug, [facility] [address] [id number] [address] [place] [address] Aug, [facility] [address] [id number] [address] [place] [phone] Aug, [facility] [address] [id number] [address] [place] [address] Aug, [facility] [address] [id number] [address] [place] [address] Aug, [facility] [address] [id number] [address] [place] [address] Aug, [facility] [address] [id number] [address] [place] [address], [place] [address] Aug, [facility] [address] [id number] [address] [place] [address] Aug, [facility] [address] [id number] [address] [place] [address] Aug, [facility] [address] [id number] [address] [place] [address], [place] [address] Aug, 2014 [facility] [address] [id number] [address] [place] [address], [place] [address] Aug, 2014 [facility] [address] [id number] [address] [place] [address], [place] [address] Aug, 2014 [facility] [address] [id number] [address] [place] [address], [place] [address] Aug, 2014 [facility] [address] [id number] [address] [place] [address], [place] [address] Aug, 2014 [facility] [address] [id number] [address] [place] [address], [place] [address] Aug, [facility] [address] [id number] [address] [place] [address], [place] [address] Jul, [facility] [address] [id number] [address] [place] [address], [place] [address] Jul, [facility] [address] [id number] [address] [place] [address], [place] [address] Jul, [facility] [address] [id number] [address] [place] [address], [place] [address] Jul, [facility] [address] [id number] [address] [place] [address], [place] [address] Jul, [facility] [address] [id number] [address] [place] [address], [place] [address] Jul, [facility] [address] [id number] [address] [place] [address], [place] [address] Jul, [facility] [address] [id number] [address] [place] [address], [place] [address] Jul, [facility] [address] [id number] [address] [place] [address], [place] [address] Jun, [facility] [address] [id number] [address] [place] [address], [place] [address] Jun, [facility] [address] [id number] [facility] [place] [address] Jun, [facility] [address] [id number] [address] [place] [address], [place] [address] Jun, [facility] [address] [id number] [address] [place] [address], [place] [address] 18 Jun, 2014 [facility] [address] [id number] [address] [place] [address], [place] [address] Jun, [facility] [address] [id number] [address] [place] [address], [place] [address] Jun, [facility] [address] [id number] [address] [place] [address], [place] [address] Jun, [facility] [address] [id number] [address] [place] [address], [place] [address] Jun, [facility] [address] [id number] [address] [place] [address], [place] [address] Jun, [facility] [address] [id number] [address] [place] [address], [place] [address] Jun, [facility] [address] [id number] [address] [place] [address], [place] [address] May, [facility] [address] [id number] [address] [place] [address], [place] [address] May, [facility] [address] [id number] [address] [place] [address], [place] [address] May, [facility] [address] [id number] [address] [place] [address], [place] [address] May, [facility] [address] [id number] [address] [place] [address], [place] [address] May, [facility] [address] [id number] [address] [place] [address], [place] [address] May, [facility] [address] [id number] [address] [place] [address], [place] [address] May, [facility] [address] [id number] [address] [place] [address], [place] [address] Apr, [facility] [address] [id number] [address] [place] [address], [place] [address] Apr, [facility] [address] [id number] [address] [place] [address], [place] [address] Apr, [facility] [address] [id number] [address] [place] [address], [place] [address] Apr, [facility] [address] [id number] [address] [place] [address], [place] [address] Apr, [facility] [address] [id number] [address] [place] [address], [place] [address] Apr, [facility] [address] [id number] [address] [place] [address], [place] [address] Mar, [facility] [address] [id number] [address] [place] [address], [place] [address] Mar, [facility] [address] [id number] [address] [place] [address], [place] [address] Mar, [facility] [address] [id number] [address] [place] [address], [place] [address] Mar, [facility] [address] [id number] [address] [place] [address], [place] [address] Mar, [facility] [address] [id number] [address] [place] [address], [place] [address] Mar, [facility] [address] [id number] [address] [place] [address], [place] [address] Jan, [facility] [address] [id number] [address] [place] [address], [place] [address] Jan, [facility] [address] [id number] [address] [place] [address], [place] [address] Jan, [facility] [address] [id number] [address] [place] [address], [place] [address] Jan, [facility] [address] [id number] [facility] [place] [address] Dec, [facility] [address] [id number] [address] [place] [address], [place] [address] Dec, [facility] [address] [id number] [address] [place] [address], [place] [address] Dec, [facility] [address] [id number] [address] [place] [address], [place] [address] Dec, [facility] [address] [id number] [address] [place] [address], [place] [address] Dec, [facility] [address] [id number] [address] [place] [address], [place] [address] Dec, [facility] [address] [id number] [address] [place] [address], [place] [address] Dec, [facility] [address] [id number] [address] [place] [address], [place] [address] Dec, [facility] [address] [id number] [address] [place] [address], [place] [address] Dec, [facility] [address] [id number] [address] [place] [address], [place] [address] Dec, [facility] [address] [id number] [address] [place] [address], [place] [address] Dec, [facility] [address] [id number] [address] [place] [address], [place] [address] Dec, [facility] [address] [id number] [address] [place] [address], [place] [address] October, [facility] [address] [id number] [address] [place] [address], [place] [address] October, [facility] [address] [id number] [address] [place] [address], [place] [address] October, [facility] [address] [id number] [address] [place] [address], [place] [address] October, [facility] [address] [id number] [address] [place] [address], [place] [address] October, [facility] [address] [id number] [address] [place] [address], [place] [address] October, [facility] [address] [id number] [address] [place] [address], [place] [address] Oct, [facility] [address] [id number] [address] [place] [address], [place] [address] Oct, [facility] [address] [id number] [address] [place] [address], [place] [address] Oct, [facility] [address] [id number] [address] [place] [address], [place] [address] Oct, [facility] [address] [id number] [address] [place] [address], [place] [address] Oct, [facility] [address] [id number] [address] [place] [address], [place] [address] Oct, [facility] [address] [id number] [address] [place] [address], [place] [address] Oct, [facility] [address] [id number] [address] [place] [address], [place] [address] Oct, [facility] [address] [id number] [address] [place] [address], [place] [address] Oct, [facility] [address] [id number] [address] [place] [address], [place] [address] Oct, [facility] [address] [id number] [address] [place] [address], [place] [address] Oct, [facility] [address] [id number] [address] [place] [address], [place] [address] Oct, [facility] [address] [id number] [address] [place] [address], [place] [address] 15 Aug, 2013 [facility] [address] [id number] [address] [place] [address], [place] [address] 15 Aug, 2013 [facility] [address] [id number] [address] [place] [address], [place] [address] 11 Aug, 2013 [facility] [address] [id number] [address] [place] [address], [place] [address] 11 Aug, 2013 [facility] [address] [id number] [address] [place] [address], [place] [address] 05 Aug, 2013 [facility] [address] [id number] [address] [place] [address], [place] [address] 05 Aug, 2013 [facility] [address] [id number] [address] [place] [address], [place] [address] 04 Aug, 2013 [facility] [address] [id number] [address] [place] [address], [place] [address] 03 Aug, 2013 [facility] [address] [id number] [address] [place] [address], [place] [address] 03 Aug, 2013 [facility] [address] [id number] [address] [place] [address], [place] [address] 24 Aug, 2013 [facility] [address] [id number] [address] [place] [address], [place] [address] 24 Aug, 2013 [facility] [address] [id number] [address] [place] [address], [place] [address] Aug, [facility] [address] [id number] [address] [place] [address], [place] [address] Aug, [facility] [address] [id number] [address] [place] [address], [place] [address] 20 Aug, 2013 [facility] [address] [id number] [address] [place] [address], [place] [address] 14 Aug, 2013 [facility] [address] [id number] [address] [place] [address], [place] [address] 14 Aug, 2013 [facility] [address] [id number] [address] [place] [address], [place] [address] 14 Aug, 2013 [facility] [address] [id number] [address] [place] [address], [place] [address] 14 Aug, 2013 [facility] [address] [id number] [address] [place] [address], [place] [address] 07 Aug, 2013 [facility] [address] [id number] [address] [place] [address], [place] [address] 07 Aug, 2013 [facility] [address] [id number] [address] [place] [address], [place] [address] 06 Aug, 2013 [facility] [address] [id number] [address] [place] [address], [place] [address] 06 Aug, 2013 [facility] [address] [id number] [address] [place] [address], [place] [address] 04 Aug, 2013 [facility] [address] [id number] [address] [place] [address], [place] [address] 04 Aug, 2013 [facility] [address] [id number] [address] [place] [address], [place] [address] Aug, [facility] [address] [id number] [address] [place] [address], [place] [address] Jul, [facility] [address] [id number] [address] [place] [address], [place] [address] Jul, [facility] [address] [id number] [address] [place] [address], [place] [address] Jul, [facility] [address] [id number] [address] [place] [address], [place] [address] Jul, [facility] [address] [id number] [address] [place] [address], [place] [address] Jul, [facility] [address] [id number] [address] [place] [address], [place] [address] Jul, [facility] [address] [id number] [address] [place] [address], [place] [address] Jul, [facility] [address] [id number] [address] [place] [address], [place] [address] Jul, [facility] [address] [id number] [address] [place] [address], [place] [address] Jul, [facility] [address] [id number] [address] [place] [address], [place] [address] Jul, [facility] [address] [id number] [address] [place] [address], [place] [address] Jul, [facility] [address] [id number] [address] [place] [address], [place] [address] Jul, [facility] [address] [id number] [address] [place] [address], [place] [address] Jul, [facility] [address] [id number] [address] [place] [address], [place] [address] Jul, [facility] [address] [id number] [address] [place] [address], [place] [address] Jul, [facility] [address] [id number] [address] [place] [address], [place] [address] Jul, [facility] [address] [id number] [address] [place] [address], [place] [address] Jul, [facility] [address] [id number] [address] [place] [address], [place] [address] Jul, [facility] [address] [id number] [address] [place] [address], [place] [address] Jul, [facility] [address] [id number] [address] [place] [address], [place] [address] Jul, [facility] [address] [id number] [address] [place] [address], [place] [address] Jun, [facility] [address] [id number] [address] [place] [address], [place] [address] 31 Jun, 2013 [facility] [address] [id number] [address] [place] [address], [place] [address] Jun, [facility] [address] [id number] [address] [place] [address], [place] [address] Jun, [facility] [address] [id number] [address] [place] [address], [place] [address] Jun, [facility] [address] [id number] [address] [place] [address], [place] [address] Jun, [facility] [address] [id number] [address] [place] [address], [place] [address] Jun, [facility] [address] [id number] [address] [place] [address], [place] [address] Jun, [facility] [address] [id number] [address] [place] [address], [place] [address] Jun, [facility] [address] [id number] [address] [place] [address], [place] [address] Jun, [facility] [address] [id number] [address] [place] [address], [place] [address] Jun, [facility] [address] [id number] [address] [place] [address], [place] [address] Jun, [facility] [address] [id number] [address] [place] [address], [place] [address] Jun, [facility] [address] [id number] [address] [place] [address], [place] [address] Jun, [facility] [address] [id number] [address] [place] [address], [place] [address] Jun, [facility] [address] [id number] [address] [place] [address], [place] [address] Jun, [facility] [address] [id number] [address] [place] [address], [place] [address] Jun, [facility] [address] [id number] [address] [place] [address], [place] [address] 17 Jun, 2013 [facility] [address] [id number] [address] [place] [address], [place] [address] 17 Jun, 2013 [facility] [address] [id number] [address] [place] [address], [place] [address] 13 Jun, 2013 [facility] [address] [id number] [address] [place] [address], [place] [address] Jun, [facility] [address] [id number] [address] [place] [address], [place] [address] Jun, [facility] [address] [id number] [address] [place] [address], [place] [address] Jun, [facility] [address] [id number] [address] [place] [address], [place] [address] Jun, [facility] [address] [id number] [address] [place] [address], [place] [address] Jun, [facility] [address] [id number] [address] [place] [address], [place] [address] Jun, [facility] [address] [id number] [address] [place] [address], [place] [address] Jun, [facility] [address] [id number] [address] [place] [address], [place] [address] May, [facility] [address] [id number] [address] [place] [address], [place] [address] May, [facility] [address] [id number] [address] [place] [address], [place] [address] May, [facility] [address] [id number] [address] [place] [address], [place] [address] May, [facility] [address] [id number] [address] [place] [address], [place] [address] May, [facility] [address] [id number] [address] [place] [address], [place] [address] May, [facility] [address] [id number] [address] [place] [address], [place] [address] 30 Apr, 2013 [facility] [address] [id number] [address] [place] [address], [place] [address] Apr, [facility] [address] [id number] [address] [place] [address], [place] [address] Apr, [facility] [address] [id number] [address] [place] [address], [place] [address] Apr, [facility] [address] [id number] [address] [place] [address], [place] [address] Apr, [facility] [address] [id number] [address] [place] [address], [place] [address] Apr, [facility] [address] [id number] [address] [place] [address] Apr, [facility] [address] [id number] [address] [place] [address] Apr, [facility] [address] [id number] [address] [place] [address], [place] [address] 26 Mar, 2012 [facility] [address] [id number] [address] [place] [address] 24 Mar, 2012 [facility] [address] [id number] [address] [place] [address] 17 Mar, 2012 [facility] [address] [id number] [address] [place] [address] 17 Sep, 2012 [facility] [address] [id number] [address] [place] [address] 11 Sep, 2012 [facility] [address] [id number] [address] [place] [address] 10 Sep, 2012 [facility] [address] [id number] [address] [place] [address] 05 Sep, 2012 [facility] [address] [id number] [address] [place] [address] 04 Mar, 2013 [facility] [address] [id number] [address] [place] [address], [place] [address] Jan, [facility] [address] [id number] [address] [place] [address], [place] [address] Jan, [facility] [address] [id number] [address] [place] [address], [place] [address] Jan, [facility] [address] [id number] [address] [place] [address], [place] [address] Jan, [facility] [address] [id number] [address] [place] [address], [place] [address] Jan, [facility] [address] [id number] [address] [place] [address], [place] [address] Jan, [facility] [address] [id number] [address] [place] [address], [place] [address] Dec, [facility] [address] [id number] [address] [place] [address], [place] [address] 24 Dec, 2012 [facility] [address] [id number] [address] [place] [address], [place] [address] Dec, [facility] [address] [id number] [address] [place] [address], [place] [address] Dec, [facility] [address] [id number] [address] [place] [address], [place] [address] 18 Dec, 2012 [facility] [address] [id number] [address] [place] [address], [place] [address] 17 Dec, 2012 [facility] [address] [id number] [address] [place] [address], [place] [address] 16 Dec, 2012 [facility] [address] [id number] [address] [place] [address], [place] [address] 16 Dec, 2012 [facility] [address] [id number] [address] [place] [address], [place] [address] 15 Dec, 2012 [facility] [address] [id number] [address] [place] [address], [place] [address] 10 Dec, 2012 [facility] [address] [id number] [address] [place] [address], [place] [address] Dec, [facility] [address] [id number] [address] [place] [address], [place] [address] Dec, [facility] [address] [id number] [address] [place] [address], [place] [address] Dec, [facility] [address] [id number] [address] [place] [address], [place] [address] Dec, [facility] [address] [id number] [address] [place] [address], [place] [address] Dec, [facility] [address] [id number] [address] [place] [address], [place] [address] Dec, [facility] [address] [id number] [address] [place] [address], [place] [address] October, [facility] [address] [id number] [address] [place] [address], [place] [address] October, [facility] [address] [id number] [address] [place] [address], [place] [address] October, [facility] [address] [id number] [address] [place] [address], [place] [address] October, [facility] [address] [id number] [address] [place] [address], [place] [address] October, [facility] [address] [id number] [address] [place] [address], [place] [address] October, [facility] [address] [id number] [address] [place] [address], [place] [address] October, [facility] [address] [id number] [address] [place] [address], [place] [address] Oct, [facility] [address] [id number] [address] [place] [address], [place] [address] 26 Oct, 2012 [facility] [address] [id number] [address] [place] [address], [place] [address] 24 Oct, 2012 [facility] [address] [id number] [address] [place] [address], [place] [address] 23 Oct, 2012 [facility] [address] [id number] [address] [place] [address], [place] [address] 19 Oct, 2012 [facility] [address] [id number] [address] [place] [address], [place] [address] 18 Oct, 2012 [facility] [address] [id number] [address] [place] [address], [place] [address] 17 Oct, 2012 [facility] [address] [id number] [address] [place] [address], [place] [address] 15 Oct, 2012 [facility] [address] [id number] [address] [place] [address], [place] [address] Oct, [facility] [address] [id number] [address] [place] [address], [place] [address] Oct, [facility] [address] [id number] [address] [place] [address], [place] [address] Oct, [facility] [address] [id number] [address] [place] [address], [place] [address] Oct, [facility] [address] [id number] [address] [place] [address], [place] [address] Aug, [facility] [address] [id number] [address] [place] [address], [place] [address] Aug, [facility] [address] [id number] [address] [place] [address], [place] [address] Aug, [facility] [address] [id number] [address] [place] [address], [place] [address] 06 Aug, 2012 [facility] [address] [id number] [address] [place] [address], [place] [address] 05 Aug, 2012 [facility] [address] [id number] [address] [place] [address], [place] [address] 05 Aug, 2012 [facility] [address] [id number] [address] [place] [address], [place] [address] 20 Aug, 2012 [facility] [address] [id number] [address] [place] [address], [place] [address] 14 Aug, 2012 [facility] [address] [id number] [address] [place] [address], [place] [address] 12 Aug, 2012 [facility] [address] [id number] [address] [place] [address], [place] [address] 11 Aug, 2012 [facility] [address] [id number] [address] [place] [address], [place] [address] 29 Jul, 2012 [facility] [address] [id number] [address] [place] [address], [place] [address] 15 Jul, 2012 [facility] [address] [id number] [address] [place] [address], [place] [address] 08 Jul, 2012 [facility] [address] [id number] [address] [place] [address], [place] [address] 20 Jun, 2012 [facility] [address] [id number] [address] [place] [address], [place] [address] 18 Jun, 2012 [facility] [address] [id number] [address] [place] [address], [place] [address] 18 Jun, 2012 [facility] [address] [id number] [address] [place] [address], [place] [address] 18 Jun, 2012 [facility] [address] [id number] [address] [place] [address], [place] [address] 18 Jun, 2012 [facility] [address] [id number] [address] [place] [address], [place] [address] 14 Jun, 2012 [facility] [address] [id number] [address] [place] [address], [place] [address] 14 Jun, 2012 [facility] [address] [id number] [address] [place] [address], [place] [address] 13 Jun, 2012 [facility] [address] [id number] [address] [place] [address], [place] [address] 13 Jun, 2012 [facility] [address] [id number] [address] [place] [address], [place] [address] Jun, [facility] [address] [id number] [address] [place] [address], [place] [address] Jun, [facility] [address] [id number] [address] [place] [address], [place] [address] Jun, [facility] [address] [id number] [address] [place] [address], [place] [address] Jun, [facility] [address] [id number] [address] [place] [address], [place] [address] Jun, [facility] [address] [id number] [address] [place] [address], [place] [address] Jun, [facility] [address] [id number] [address] [place] [address], [place] [address] Jun, [facility] [address] [id number] [address] [place] [address], [place] [address] Jun, [facility] [address] [id number] [address] [place] [address], [place] [address] Jun, [facility] [address] [id number] [address] [place] [address], [place] [address] Jun, [facility] [address] [id number] [address] [place] [address] Jun, [facility] [address] [id number] [address] [place] [address], [place] [address] Jun, [facility] [address] [id number] [address] [place] [address], [place] [address] Jun, [facility] [address] [id number] [address] [place] [address], [place] [address] Jun, [facility] [address] [id number] [address] [place] [address] May, [facility] [address] [id number] [address] [place] [address], [place] [address] May, [facility] [address] [id number] [address] [place] [address] May, [facility] [address] [id number] [address] [place] [address], [place] [address] May, [facility] [address] [id number] [address] [place] [address] May, [facility] [address] [id number] [address] [place] [address], [place] [address] May, [facility] [address] [id number] [address] [place] [address], [place] [address] May, [facility] [address] [id number] [address] [place] [address], [place] [address] May, [facility] [address] [id number] [address] [place] [address], [place] [address] Apr, [facility] [address] [id number] [address] [place] [address] 30 Apr, 2012 [facility] [address] [id number] [address] [place] [address] 29 Apr, 2012 [facility] [address] [id number] [address] [place] [address] Apr, [facility] [address] [id number] [address] [place] [address] Apr, [facility] [address] [id number] [address] [place] [address] Apr, [facility] [address] [id number] [address] [place] [address] Apr, [facility] [address] [id number] [address] [place] [address] Apr, [facility] [address] [id number] [address] [place] [address], [place] [address] Apr, [facility] [address] [id number] [address] [place] [address], [place] [address] Apr, [facility] [address] [id number] [address] [place] [address], [place] [address] Apr, [facility] [address] [id number] [address] [place] [address], [place] [address] Apr, [facility] [address] [id number] [address] [place] [address], [place] [address] 19 Mar, 2012 [facility] [address] [id number] [address] [place] [address], [place] [address] 18 Mar, 2012 [facility] [address] [id number] [address] [place] [address], [place] [address] Mar, [facility] [address] [id number] [address] [place] [address], [place] [address] Mar, [facility] [address] [id number] [address] [place] [id number] Mar, [facility] [address] [id number] [address] [place] [id number] Mar, [facility] [address] [id number] [address] [place] [address] Mar, [facility] [address] [id number] [address] [place] [address] Jan, [facility] [address] [id number] [address] [place] [phone] Jan, [facility] [address] [id number] [address] [place] [phone] Jan, [facility] [address] [id number] [address] [place] [id number] Jan, [facility] [address] [id number] [address] [place] [id number] Jan, [facility] [address] [id number] [address] [place] [address], [place] [address] Jan, [facility] [address] [id number] [address] [place] [address], [place] [address] Jan, [facility] [address] [id number] [address] [place] [address], [place] [address] Jan, [facility] [address] [id number] [address] [place] [address], [place] [address] Jan, [facility] [address] [id number] [address] [place] [address], [place] [address] Jan, [facility] [address] [id number] [address] [place] [address], [place] [address] Jan, [facility] [address] [id number] [address] [place] [address], [place] [address] Dec, [facility] [address] [id number] [address] [place] [address], [place] [address] Dec, [facility] [address] [id number] [address] [place] [address], [place] [address] Dec, [facility] [address] [id number] [address] [place] [address], [place] [address] Dec, [facility] [address] [id number] [address] [place] [address], [place] [address] Dec, [facility] [address] [id number] [address] [place] [address], [place] [address] Dec, [facility] [address] [id number] [address] [place] [address], [place] [address] 18 Jan, 2012 [facility] [address] [id number] [address] [place] [address], [place] [address] Dec, [facility] [address] [id number] [address] [place] [address], [place] [address] 16 Jan, 2012 [facility] [address] [id number] [address] [place] [address], [place] [address] 13 Jan, 2012 [facility] [address] [id number] [address] [place] [address], [place] [address] 13 Jan, 2012 [facility] [address] [id number] [address] [place] [address], [place] [address] 02 Jan, 2012 [facility] [address] [id number] [address] [place] [address], [place] [address] Dec, [facility] [address] [id number] [address] [place] [address], [place] [address] Dec, [facility] [address] [id number] [address] [place] [address], [place] [address] Dec, [facility] [address] [id number] [address] [place] [address], [place] [address] 18 Dec, 2011 [facility] [address] [id number] [address] [place] [address], [place] [address] 15 Dec, 2011 [facility] [address] [id number] [address] [place] [address], [place] [address] Dec, [facility] [address] [id number] [address] [place] [address], [place] [address] 05 Dec, 2011 [facility] [address] [id number] [address] [place] [address], [place] [address] October, [facility] [address] [id number] [address] [place] [address], [place] [address] October, [facility] [address] [id number] [address] [place] [address], [place] [address] October, [facility] [address] [id number] [address] [place] [address], [place] [address] October, [facility] [address] [id number] [address] [place] [address], [place] [address] October, [facility] [address] [id number] [address] [place] [address], [place] [address] October, [facility] [address] [id number] [address] [place] [address], [place] [address] 30 Oct, 2011 [facility] [address] [id number] [address] [place] [address], [place] [address] 24 Oct, 2011 [facility] [address] [id number] [address] [place] [address], [place] [address] 20 Oct, 2011 [facility] [address] [id number] [address] [place] [address], [place] [address] 09 Oct, 2011 [facility] [address] [id number] [address] [place] [address], [place] [address] 04 Oct, 2011 [facility] [address] [id number] [address] [place] [address], [place] [address] 03 Oct, 2011 [facility] [address] [id number] [address] [place] [address], [place] [address] Oct, [facility] [address] [id number] [address] [place] [address], [place] [address] 29 Sep, 2011 [facility] [address] [id number] [address] [place] [address], [place] [address] 29 Sep, 2011 [facility] [address] [id number] [address] [place] [address], [place] [address] Aug, [facility] [address] [id number] [address] [place] [address], [place] [address] Aug, [facility] [address] [id number] [address] [place] [address], [place] [address] 05 Sep, 2011 [facility] [address] [id number] [address] [place] [address], [place] [address] 05 Sep, 2011 [facility] [address] [id number] [address] [place] [address], [place] [address] 27 Aug, 2011 [facility] [address] [id number] [address] [place] [address], [place] [address] 20 Aug, 2011 [facility] [address] [id number] [address] [place] [address], [place] [address] Aug, [facility] [address] [id number] [address] [place] [address], [place] [address] Jul, [facility] [address] [id number] [address] [place] [address], [place] [address] Jul, [facility] [address] [id number] [address] [place] [address], [place] [address] Jul, [facility] [address] [id number] [address] [place] [address], [place] [address] Jul, [facility] [address] [id number] [address] [place] [address], [place] [address] Jun, [facility] [address] [id number] [address] [place] [address], [place] [address] Jun, [facility] [address] [id number] [address] [place] [address], [place] [address] May, [facility] [address] [id number] [address] [place] [address], [place] [address] May, [facility] [address] [id number] [address] [place] [address], [place] [address] May, [facility] [address] [id number] [address] [place] [address], [place] [address] May, [facility] [address] [id number] [address] [place] [address], [place] [address] May, [facility] [address] [id number] [address] [place] [address] Apr, [facility] [address] [id number] [address] [place] [address], [place] [address] Apr, [facility] [address] [id number] [address] [place] [address], [place] [address] Apr, [facility] [address] [id number] [address] [place] [address], [place] [address] 15 Jan, 2011 [facility] [address] [id number] [address] [place] [address] 13 Dec, 2010 [facility] [address] [id number] [address] [place] [address] October, [facility] [address] [id number] [address] [place] [address] Jun, [facility] [address] [facility] [id number] [address] [place] [address] Apr, [facility] [address] [facility] [id number] [address] [place] [address] Apr, [facility] [address] [facility] [id number] [address] [place] [address] Apr, [facility] [address] [facility] [id number] [address] [place] [address] Jun, IMMUNIZATIONS No Known Immunizations SOCIAL HISTORY Never Assessed REASON FOR VISIT PLAN OF CARE VITAL SIGNS MEDICATIONS Unknown Medications RESULTS No Results PROCEDURES Procedure Date Ordered Result Body Site COMPLETE CBC W/AUTO DIFF WBC Feb 16, 2012 ASSAY THYROID STIM HORMONE Feb 16, 2012 DRUG SCREEN, QUALITATE/MULTI Feb 16, 2012 ACUTE HEPATITIS PANEL Feb 16, 2012 LIPID PANEL Feb 16, 2012 COMPREHEN METABOLIC PANEL Feb 16, 2012 ASSAY OF VITAMIN D Feb 16, 2012 VENIPUNCT, ROUTINE* Feb 16, 2012 INSTRUCTIONS MEDICATIONS ADMINISTERED No Known Medications MEDICAL (GENERAL) HISTORY Type Description Date Medical History Psychiatric disorder Medical History Hard of hearing Surgical History Neofibrous tumor Surgical History back injection Surgical History SCS inserted 02/22/16 Hospitalization History Intestinal blockage Hospitalization History past psychiatric hospitalizations x2 Hospitalization History SCS 02/01-
--- OUTSIDE RECORDS SUMMARY | 2020-01-25 13:32 | XMS REPORT ---
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 Name Role Phone Migration, Doctor Unavailable Unavailable PROBLEMS Type Condition ICD9-CM Code [id number] Code Onset Dates Condition S tatus SNOMED Code Problem Chronic hepatitis C without hepatic coma B18.2 Active 749265901 Problem Cannabis abuse F12.10 Active 21091 009 Problem Bipolar 1 disorder F31.9 Active 3 72974251 Problem Attention deficit hyperactivity disorder (ADHD), combi luciano type F90.2 Active 53635005 Problem Attention deficit R41.840 Active 76 105666 Problem Hot flashes due to menopause N95.1 A ctive 143453008 Problem H/O laminectomy Z98.89 Active 1616 80639 Problem Other chronic pain G89.29 Active 8 7384362 Problem Anxiety disorder, unspecified type F41.9 Active 880944261 Problem Bipolar disorder, in partial remission, most rec ent episode hypomanic F31.71 Active [id number] ALLERGIES No Information ENCOUNTERS Encounter Location Date Diagnosis [facility] [address] [facility] [id number] [address] [place] [phone] Aug, [facility] [address] [facility] [id number] [address] [place] [phone] Jul, [facility] [address] [facility] [id number] [address] [place] [phone] Jul, [facility] [address] [facility] [id number] [address] [place] [phone] Apr, [facility] [address] [facility] [id number] [address] [place] [phone] Mar, Hot flashes due to menopause N95.1 ; Anxiety disorder, unspecified type F41.9 ; Low back pain M54.5 and Encounter for immunization Z23 [facility] [address] [facility] [id number] [address] [place] [phone] Dec, Other chronic pain G89.29 an d Low back pain M54.5 [facility] [address] [id number] [address] [place] [phone] October, [facility] [address] [id number] [address] [place] [id number] October, [facility] [address] [id number] [address] [place] [phone] October, [facility] [address] [id number] [address] [place] [phone] October, Other chronic pain G89.29 an d Chronic hepatitis C without hepatic coma B18.2 [facility] [address] [id number] [address] [place] [phone] Aug, Bipolar disorder, in partial remission, most recent episode hypomanic F31.71 ; Attention deficit hyperactivity disorder (ADHD), combined type F90.2 and Anxiety disorder, unspecified type F41.9 [facility] [address] [id number] [address] [place] [phone] Aug, [facility] [address] [facility] [id number] [address] [place] [phone] Aug, Bipolar disorder, in partial remission, most recent episode hypomanic F31.71 [facility] [address] [id number] [address] [place] [phone] Aug, [facility] [address] [id number] [address] [place] [phone] Aug, Bipolar disorder, in partial remission, most recent episode hypomanic F31.71 [facility] [address] [id number] [address] [place] [id number] Aug, Bipolar disorder, in partial remission, most recent episode hypomanic F31.71 ; Attention deficit hyperactivity disorder (ADHD), combined type F90.2 and Anxiety disorder, unspecified type F41.9 [facility] [address] [id number] [address] [place] [phone] Aug, Low back pain M54.5 and Pain in left wrist M25.532 [facility] [address] [id number] [address] [place] [id number] Aug, [facility] [address] [id number] [address] [place] [phone] Jun, [facility] [address] [id number] [address] [place] [address] Apr, Bipolar disorder, in partial remission, most recent episode hypomanic F31.71 [facility] [address] [id number] [address] [place] [phone] Apr, [facility] [address] [id number] [address] [place] [phone] Apr, Bipolar disorder, in partial remission, most recent episode hypomanic F31.71 ; Attention deficit hyperactivity disorder (ADHD), combined type F90.2 ; Anxiety disorder, unspecified type F41.9 and Other long term care pharmacist (current) drug therapy Z79.899 [facility] [address] [id number] [address] [place] [id number] Apr, Bipolar disorder, in partial remission, most recent episode hypomanic F31.71 [facility] [address] [id number] [address] [place] [address] Apr, Bipolar disorder, in partial remission, most recent episode hypomanic F31.71 [facility] [address] [id number] [address] [place] [id number] Mar, [facility] [address] [id number] [address] [place] [id number] Mar, Bipolar disorder, in partial remission, most recent episode hypomanic F31.71 ; Encounter for immunization Z23 and Low back pain M54.5 [facility] [address] [id number] [address] [place] [phone] Mar, Bipolar disorder, in partial remission, most recent episode hypomanic F31.71 [facility] [address] [id number] [address] [place] [address] Mar, Bipolar disorder, in partial remission, most recent episode hypomanic F31.71 [facility] [address] [id number] [address] [place] [phone] Jan, Bipolar disorder, in partial remission, most recent episode hypomanic F31.71 [facility] [address] [id number] [address] [place] [phone] Jan, Bipolar disorder, in partial remission, most recent episode hypomanic F31.71 [facility] [address] [id number] [address] [place] [id number] Dec, Bipolar disorder, in partial remission, most recent episode hypomanic F31.71 [facility] [address] [id number] [address] [place] [id number] Dec, Bipolar disorder, in partial remission, most recent episode hypomanic F31.71 ; Attention deficit hyperactivity disorder (ADHD), combined type F90.2 ; Anxiety disorder, unspecified type F41.9 and Other residential (current) drug therapy Z79.899 [facility] [address] [id number] [address] [place] [phone] Dec, Bipolar disorder, in partial remission, most recent episode hypomanic F31.71 [facility] [address] [id number] [address] [place] [id number] Dec, Bipolar disorder, in partial remission, most recent episode hypomanic F31.71 [facility] [address] [id number] [address] [place] [phone] October, Bipolar disorder, in partial remission, most recent episode hypomanic F31.71 [facility] [address] [id number] [address] [place] [phone] October, [facility] [address] [id number] [address] [place] [phone] October, [facility] [address] [id number] [address] [place] [id number] Oct, Bipolar disorder, in partial remission, most recent episode hypomanic F31.71 ; Attention deficit hyperactivity disorder (ADHD), combined type F90.2 ; Anxiety disorder, unspecified type F41.9 and Encounter for drug screening Z02.83 [facility] [address] [id number] [address] [place] [phone] Oct, Bipolar disorder, in partial remission, most recent episode hypomanic F31.71 [facility] [address] [id number] [address] [place] [phone] Oct, Bipolar disorder, in partial remission, most recent episode hypomanic F31.71 [facility] [address] [id number] [address] [place] [phone] Aug, Bipolar disorder, in partial remission, most recent episode hypomanic F31.71 [facility] [address] [id number] [address] [place] [phone] Aug, Bipolar disorder, in partial remission, most recent episode hypomanic F31.71 [facility] [address] [id number] [address] [place] [id number] Aug, Bipolar disorder, in partial remission, most recent episode hypomanic F31.71 [facility] [address] [id number] [address] [place] [phone] Jul, Bipolar disorder, in partial remission, most recent episode hypomanic F31.71 ; Attention deficit hyperactivity disorder (ADHD), combined type F90.2 and Anxiety disorder, unspecified type F41.9 [facility] [address] [id number] [address] [place] [phone] Jul, Bipolar disorder, in partial remission, most recent episode hypomanic F31.71 [facility] [address] [id number] [address] [place] [phone] Jun, Bipolar disorder, in partial remission, most recent episode hypomanic F31.71 [facility] [address] [facility] [id number] [address] [place] [id number] 17 May, 2017 Bipolar disorder, in partial remission, most recent episode hypomanic F31.71 [facility] [address] [facility] [id number] [address] [place] [phone] May, Bipolar disorder, in partial remission, most recent episode hypomanic F31.71 [facility] [address] [facility] [id number] [address] [place] [phone] Apr, [facility] [address] [facility] [id number] [address] [place] [address] Apr, Bipolar disorder, in partial remission, most recent episode hypomanic F31.71 ; Attention deficit hyperactivity disorder (ADHD), combined type F90.2 ; Anxiety disorder, unspecified type F41.9 and Cannabis abuse F12.10 [facility] [address] [facility] [id number] [address] [place] [phone] Apr, Attention deficit hyperactiv ity disorder (ADHD), combined type F90.2 [facility] [address] [facility] [id number] [address] [place] [id number] Mar, Attention deficit hyperactiv ity disorder (ADHD), combined type F90.2 [facility] [address] [facility] [id number] [address] [place] [id number] 14 Mar, 2017 Anxiety disorder, unspecifie d type F41.9 [facility] [address] [facility] [id number] [address] [place] [phone] Jan, Attention deficit hyperactiv ity disorder (ADHD), combined type F90.2 [facility] [address] [facility] [id number] [address] [place] [phone] Jan, Anxiety disorder, unspecifie d type F41.9 [facility] [address] [facility] [id number] [address] [place] [phone] Jan, Other chronic pain G89.29 ; Chronic hepatitis C without hepatic coma B18.2 and Bipolar 1 disorder F31.9 [facility] [address] [place] [id number] [address] [place] [phone] Dec, Attention deficit hyperactiv ity disorder (ADHD), combined type F90.2 [facility] [address] [place] [id number] [address] [place] [phone] Dec, Bipolar disorder, in partial remission, most recent episode hypomanic F31.71 ; Attention deficit hyperactivity disorder (ADHD), combined type F90.2 and Anxiety disorder, unspecified type F41.9 [place] [address] [place] [id number] [address] [place] [phone] Dec, Bipolar disorder, in partial remission, most recent episode hypomanic F31.71 ; Attention deficit hyperactivity disorder (ADHD), combined type F90.2 and Anxiety disorder, unspecified type F41.9 [place] [address] [place] [id number] [address] [place] [phone] Dec, Bipolar 1 disorder F31.9 and Attention deficit R41.840 [place] [address] [address] Oct, Other chronic pain G89.29 ; Alopecia L65.9 and Screening, lipid Z13.220 [place] [address] [place] [id number] [place] [address] Oct, [place] [address] [place] [id number] [address] [place] [phone] Aug, [place] [address] [place] [id number] [place] [address] Aug, Eustachian tube dysfunction, right H69.81 ; Vertigo R42 and Other chronic pain G89.29 [place] [address] [place] [id number] [address] [place] [phone] Aug, [place] [address] [place] [id number] [address] [place] [phone] Jun, [place] [address] [place] [id number] [address] [place] [phone] 14 Jun, 2016 Low back pain M54.5 and Othe r chronic pain G89.29 [facility] [address] [facility] [id number] [address] [place] [phone] Jun, [facility] [address] [facility] [id number] [address] [place] [phone] May, [facility] [address] [place] [id number] [place] [phone] Jan, [facility] [address] [place] [id number] [place] [phone] Dec, [facility] [address] [id number] Dec, [facility] [address] [place] [id number] [place] [address] Jun, [facility] [address] [address] Apr, Eustachian tube dysfunction, unspecified laterality H69.80 ; Hot flashes N95.1 and Encounter for immunization Z23 [facility] [address] [id number] Jan, [facility] [address] [place] [id number] [place] [address] Jan, [facility] [address] [id number] Jan, [facility] [address] [place] [id number] [place] [address] Jan, [facility] [address] [address] Jan, Encounter to establish care V65.8 ; Bipolar 1 disorder 296.7 ; Abdominal pain 789.00 ; Constipation 564.00 ; Hard of hearing 389.9 and Drug abuse 305.90 [facility] [address] [place] [id number] [address] [place] [address] Dec, [facility] [address] [id number] [address] [place] [address], [place] [address] October, [facility] [address] [id number] [address] [place] [address], [place] [address] October, [facility] [address] [id number] [address] [place] [address], [place] [address] Oct, [facility] [address] [id number] [address] [place] [address], [place] [address] Oct, [facility] [address] [id number] [address] [place] [address], [place] [address] Oct, [facility] [address] [id number] [address] [place] [address], [place] [address] Aug, [facility] [address] [id number] [address] [place] [address], [place] [address] Aug, [facility] [address] [id number] [address] [place] [address], [place] [address] Aug, [facility] [address] [id number] [address] [place] [address], [place] [address] Aug, [facility] [address] [id number] [address] [place] [address], [place] [address] Aug, [facility] [address] [id number] [address] [place] [address], [place] [address] Aug, [facility] [address] [id number] [address] [place] [phone] Aug, [facility] [address] [id number] [address] [place] [address], [place] [address] Aug, [facility] [address] [id number] [address] [place] [address], [place] [address] Aug, [facility] [address] [id number] [address] [place] [address], [place] [address] Aug, [facility] [address] [id number] [address] [place] [address], [place] [address] Aug, [facility] [address] [id number] [address] [place] [address], [place] [address] Aug, [facility] [address] [id number] [address] [place] [address], [place] [address] Aug, [facility] [address] [id number] [address] [place] [address], [place] [address] Aug, [facility] [address] [id number] [address] [place] [address], [place] [address] Aug, [facility] [address] [id number] [address] [place] [address], [place] [address] Jul, [facility] [address] [id number] [address] [place] [address], [place] [address] Jul, [facility] [address] [id number] [address] [place] [address], [place] [address] Jul, [facility] [address] [id number] [address] [place] [address], [place] [address] Jul, [facility] [address] [id number] [address] [place] [address], [place] [address] Jul, [facility] [address] [id number] [address] [place] [address], [place] [address] Jul, [facility] [address] [id number] [address] [place] [address], [place] [address] Jul, [facility] [address] [id number] [address] [place] [address], [place] [address] Jul, [facility] [address] [id number] [address] [place] [address], [place] [address] Jun, [facility] [address] [id number] [address] [place] [address], [place] [address] Jun, [facility] [address] [id number] [address] [place] [address], [place] [address] Jun, [facility] [address] [id number] [address] [place] [address], [place] [address] Jun, [facility] [address] [id number] [address] [place] [address], [place] [address] Jun, [facility] [address] [id number] [address] [place] [address], [place] [address] Jun, [facility] [address] [id number] [address] [place] [address], [place] [address] Jun, [facility] [address] [id number] [address] [place] [address], [place] [address] Jun, [facility] [address] [id number] [address] [place] [address], [place] [address] Jun, [facility] [address] [id number] [address] [place] [address], [place] [address] Jun, [facility] [address] [id number] [address] [place] [address], [place] [address] Jun, [facility] [address] [id number] [address] [place] [address], [place] [address] May, [facility] [address] [id number] [address] [place] [address], [place] [address] May, [facility] [address] [id number] [address] [place] [address], [place] [address] May, [facility] [address] [id number] [address] [place] [address], [place] [address] May, [facility] [address] [id number] [address] [place] [address], [place] [address] May, [facility] [address] [id number] [address] [place] [address], [place] [address] May, [facility] [address] [id number] [address] [place] [address], [place] [address] May, [facility] [address] [id number] [address] [place] [address], [place] [address] Apr, [facility] [address] [id number] [address] [place] [address], [place] [address] Apr, [facility] [address] [id number] [address] [place] [address], [place] [address] Apr, [facility] [address] [id number] [address] [place] [address], [place] [address] Apr, [facility] [address] [id number] [address] [place] [address], [place] [address] Apr, [facility] [address] [id number] [address] [place] [address], [place] [address] Apr, [facility] [address] [id number] [address] [place] [address], [place] [address] Mar, [facility] [address] [id number] [address] [place] [address], [place] [address] Mar, [facility] [address] [id number] [address] [place] [address], [place] [address] Mar, [facility] [address] [id number] [address] [place] [address], [place] [id number] Mar, [facility] [address] [id number] [address] [place] [address], [place] [address] Mar, [facility] [address] [id number] [address] [place] [address], [place] [address] Mar, [facility] [address] [id number] [address] [place] [address], [place] [address] Jan, [facility] [address] [id number] [address] [place] [address], [place] [address] Jan, [facility] [address] [id number] [address] [place] [address], [place] [address] Jan, [facility] [address] [id number] [address] [place] [address], [place] [address] Jan, [facility] [address] [id number] [facility] [place] [address] Dec, [facility] [address] [id number] [address] [place] [address], [place] [address] Dec, [facility] [address] [id number] [address] [place] [address], [place] [address] Dec, [facility] [address] [id number] [address] [place] [address], [place] [address] Dec, [facility] [address] [id number] [address] [place] [address], [place] [id number] Dec, [facility] [address] [id number] [address] [place] [address], [place] [id number] Dec, [facility] [address] [id number] [address] [place] [address], [place] [address] Dec, [facility] [address] [id number] [address] [place] [address], [place] [address] Dec, [facility] [address] [id number] [address] [place] [address], [place] [address] Dec, [facility] [address] [id number] [address] [place] [address], [place] [address] Dec, [facility] [address] [id number] [address] [place] [address], [place] [address] Dec, [facility] [address] [id number] [address] [place] [address], [place] [address] Dec, [facility] [address] [id number] [address] [place] [address], [place] [address] October, [facility] [address] [id number] [address] [place] [address], [place] [address] October, [facility] [address] [id number] [address] [place] [address], [place] [address] October, [facility] [address] [id number] [address] [place] [address], [place] [address] October, [facility] [address] [id number] [address] [place] [address], [place] [address] October, [facility] [address] [id number] [address] [place] [address], [place] [address] October, [facility] [address] [id number] [address] [place] [address], [place] [address] Oct, [facility] [address] [address] [id number] [address] [place] [address], [place] [address] Oct, [facility] [address] [id number] [address] [place] [address], [place] [address] Oct, [facility] [address] [id number] [address] [place] [address], [place] [address] Oct, [facility] [address] [id number] [address] [place] [address], [place] [address] Oct, [facility] [address] [id number] [address] [place] [address], [place] [address] Oct, [facility] [address] [id number] [address] [place] [address], [place] [address] Oct, [facility] [address] [id number] [address] [place] [address], [place] [address] Oct, [facility] [address] [id number] [address] [place] [address], [place] [address] Oct, [facility] [address] [id number] [address] [place] [address], [place] [address] Oct, [facility] [address] [id number] [address] [place] [address], [place] [address] Oct, [facility] [address] [id number] [address] [place] [address], [place] [address] Oct, [facility] [address] [id number] [address] [place] [address], [place] [address] Aug, [facility] [address] [id number] [address] [place] [address], [place] [address] 15 Aug, 2013 [facility] [address] [id number] [address] [place] [address], [place] [address] 11 Aug, 2013 [facility] [address] [id number] [address] [place] [address], [place] [address] Aug, [facility] [address] [id number] [address] [place] [address], [place] [address] 05 Aug, 2013 [facility] [address] [id number] [address] [place] [address], [place] [address] 05 Aug, 2013 [facility] [address] [id number] [address] [place] [address], [place] [address] 04 Aug, 2013 [facility] [address] [id number] [address] [place] [address], [place] [address] Aug, [facility] [address] [id number] [address] [place] [address], [place] [address] Aug, [facility] [address] [id number] [address] [place] [address], [place] [address] 24 Aug, 2013 [facility] [address] [id number] [address] [place] [address], [place] [address] 24 Aug, 2013 [facility] [address] [id number] [address] [place] [address], [place] [address] Aug, [facility] [address] [id number] [address] [place] [address], [place] [address] Aug, [facility] [address] [id number] [address] [place] [address], [place] [address] Aug, [facility] [address] [id number] [address] [place] [address], [place] [address] 14 Aug, 2013 [facility] [address] [id number] [address] [place] [address], [place] [address] 14 Aug, 2013 [facility] [address] [id number] [address] [place] [id number] 14 Aug, 2013 [facility] [address] [id number] [address] [place] [address], [place] [address] 14 Aug, 2013 [facility] [address] [id number] [address] [place] [address], [place] [address] 07 Aug, 2013 [facility] [address] [id number] [address] [place] [address], [place] [address] 07 Aug, 2013 [facility] [address] [id number] [address] [place] [address], [place] [address] 06 Aug, 2013 [facility] [address] [id number] [address] [place] [address], [place] [address] Aug, [facility] [address] [id number] [address] [place] [address], [place] [address] Aug, [facility] [address] [id number] [address] [place] [address], [place] [address] Aug, [facility] [address] [id number] [address] [place] [address], [place] [address] Aug, [facility] [address] [id number] [address] [place] [address], [place] [address] Jul, [facility] [address] [id number] [address] [place] [address], [place] [address] Jul, [facility] [address] [id number] [address] [place] [address], [place] [address] Jul, [facility] [address] [id number] [address] [place] [address], [place] [address] Jul, [facility] [address] [id number] [address] [place] [address], [place] [address] Jul, [facility] [address] [id number] [address] [place] [address], [place] [address] Jul, [facility] [address] [id number] [address] [place] [address], [place] [address] Jul, [facility] [address] [id number] [address] [place] [address], [place] [address] Jul, [facility] [address] [id number] [address] [place] [address], [place] [address] Jul, [facility] [address] [id number] [address] [place] [address], [place] [address] Jul, [facility] [address] [id number] [address] [place] [address], [place] [address] Jul, [facility] [address] [id number] [address] [place] [address], [place] [address] Jul, [facility] [address] [id number] [address] [place] [address], [place] [address] Jul, [facility] [address] [id number] [address] [place] [address], [place] [address] Jul, [facility] [address] [id number] [address] [place] [address], [place] [address] Jul, [facility] [address] [id number] [address] [place] [address], [place] [address] Jul, [facility] [address] [id number] [address] [place] [address], [place] [address] Jul, [facility] [address] [id number] [address] [place] [address], [place] [address] Jul, [facility] [address] [id number] [address] [place] [address], [place] [address] Jul, [facility] [address] [id number] [address] [place] [address], [place] [address] Jul, [facility] [address] [id number] [address] [place] [address], [place] [address] Jun, [facility] [address] [id number] [address] [place] [address], [place] [address] Jun, [facility] [address] [id number] [address] [place] [address], [place] [address] 30 Jun, 2013 [facility] [address] [id number] [address] [place] [address], [place] [address] 30 Jun, 2013 [facility] [address] [id number] [address] [place] [address], [place] [address] Jun, [facility] [address] [id number] [address] [place] [address], [place] [address] Jun, [facility] [address] [id number] [address] [place] [address], [place] [address] Jun, [facility] [address] [id number] [address] [place] [address], [place] [address] Jun, [facility] [address] [id number] [address] [place] [address], [place] [address] Jun, [facility] [address] [id number] [address] [place] [address], [place] [address] Jun, [facility] [address] [id number] [address] [place] [address], [place] [address] Jun, [facility] [address] [id number] [address] [place] [address], [place] [address] Jun, [facility] [address] [id number] [address] [place] [address], [place] [address] Jun, [facility] [address] [id number] [address] [place] [address], [place] [address] Jun, [facility] [address] [id number] [address] [place] [address], [place] [address] 20 Jun, 2013 [facility] [address] [id number] [address] [place] [address], [place] [address] 18 Jun, 2013 [facility] [address] [id number] [address] [place] [address], [place] [address] 18 Jun, 2013 [facility] [address] [id number] [address] [place] [address], [place] [address] 17 Jun, 2013 [facility] [address] [id number] [address] [place] [address], [place] [address] 17 Jun, 2013 [facility] [address] [id number] [address] [place] [address], [place] [address] Jun, [facility] [address] [id number] [address] [place] [address], [place] [address] Jun, [facility] [address] [id number] [address] [place] [address], [place] [address] Jun, [facility] [address] [id number] [address] [place] [address], [place] [address] Jun, [facility] [address] [id number] [address] [place] [address], [place] [address] Jun, [facility] [address] [id number] [address] [place] [address], [place] [address] Jun, [facility] [address] [id number] [address] [place] [address], [place] [address] Jun, [facility] [address] [id number] [address] [place] [address], [place] [address] Jun, [facility] [address] [id number] [address] [place] [address], [place] [address] May, [facility] [address] [id number] [address] [place] [address], [place] [address] May, [facility] [address] [id number] [address] [place] [address], [place] [address] May, [facility] [address] [id number] [address] [place] [address], [place] [address] May, [facility] [address] [id number] [address] [place] [address], [place] [address] May, [facility] [address] [id number] [address] [place] [address], [place] [address] May, [facility] [address] [id number] [address] [place] [address], [place] [address] 30 Apr, 2013 [facility] [address] [id number] [address] [place] [address], [place] [address] 30 Apr, 2012 [facility] [address] [id number] [address] [place] [address], [place] [address] 30 Apr, 2013 [facility] [address] [id number] [address] [place] [address], [place] [address] 30 Apr, 2013 [facility] [address] [id number] [address] [place] [address], [place] [address] Apr, [facility] [address] [id number] [address] [place] [address], [place] [address] 15 Apr, 2013 [facility] [address] [id number] [address] [place] [address] Apr, [facility] [address] [id number] [address] [place] [address], [place] [address] Apr, [facility] [address] [id number] [address] [place] [address] 26 Sep, 2012 [facility] [address] [id number] [address] [place] [address], [place] [address] 24 Sep, 2012 [facility] [address] [id number] [address] [place] [address] 17 Sep, 2012 [facility] [address] [id number] [address] [place] [address] 17 Sep, 2012 [facility] [address] [id number] [address] [place] [address] 11 Sep, 2012 [facility] [address] [id number] [address] [place] [address], [place] [address] 10 Sep, 2012 [facility] [address] [id number] [address] [place] [address] 05 Sep, 2012 [facility] [address] [id number] [address] [place] [address] 04 Sep, 2012 [facility] [address] [id number] [address] [place] [address], [place] [address] Jan, [facility] [address] [id number] [address] [place] [address], [place] [address] Jan, [facility] [address] [id number] [address] [place] [address], [place] [address] Jan, [facility] [address] [id number] [address] [place] [address], [place] [address] Jan, [facility] [address] [id number] [address] [place] [address], [place] [address] Jan, [facility] [address] [id number] [address] [place] [address], [place] [address] Jan, [facility] [address] [id number] [address] [place] [address], [place] [address] Dec, [facility] [address] [id number] [address] [place] [address], [place] [address] 24 Dec, 2012 [facility] [address] [id number] [address] [place] [address], [place] [address] Dec, [facility] [address] [id number] [address] [place] [address], [place] [address] Dec, [facility] [address] [id number] [address] [place] [address], [place] [address] 18 Dec, 2012 [facility] [address] [id number] [address] [place] [address], [place] [address] 17 Dec, 2012 [facility] [address] [id number] [address] [place] [address], [place] [address] 16 Dec, 2012 [facility] [address] [id number] [address] [place] [address], [place] [address] 16 Dec, 2012 [facility] [address] [id number] [address] [place] [address], [place] [address] 15 Dec, 2012 [facility] [address] [id number] [address] [place] [address], [place] [address] Dec, [facility] [address] [id number] [address] [place] [address], [place] [address] Dec, [facility] [address] [id number] [address] [place] [address], [place] [address] Dec, [facility] [address] [id number] [address] [place] [address], [place] [address] Dec, [facility] [address] [id number] [address] [place] [address], [place] [address] Dec, [facility] [address] [id number] [address] [place] [address], [place] [address] Dec, [facility] [address] [id number] [address] [place] [address], [place] [address] Dec, [facility] [address] [id number] [address] [place] [address], [place] [address] October, [facility] [address] [id number] [address] [place] [address], [place] [address] October, [facility] [address] [id number] [address] [place] [address], [place] [address] October, [facility] [address] [id number] [address] [place] [address], [place] [address] October, [facility] [address] [id number] [address] [place] [address], [place] [address] October, [facility] [address] [id number] [address] [place] [address], [place] [address] October, [facility] [address] [id number] [address] [place] [address], [place] [address] October, [facility] [address] [id number] [address] [place] [address], [place] [address] Oct, [facility] [address] [id number] [address] [place] [address], [place] [address] Oct, [facility] [address] [id number] [address] [place] [address], [place] [address] 24 Oct, 2012 [facility] [address] [id number] [address] [place] [address], [place] [address] 23 Oct, 2012 [facility] [address] [id number] [address] [place] [address], [place] [address] Oct, [facility] [address] [id number] [address] [place] [address], [place] [address] 18 Oct, 2012 [facility] [address] [id number] [address] [place] [address], [place] [address] 17 Oct, 2012 [facility] [address] [id number] [address] [place] [address], [place] [address] 15 Oct, 2012 [facility] [address] [id number] [address] [place] [address], [place] [address] Oct, [facility] [address] [id number] [address] [place] [address], [place] [address] Oct, [facility] [address] [id number] [address] [place] [address], [place] [address] Oct, [facility] [address] [id number] [address] [place] [address], [place] [address] Oct, [facility] [address] [id number] [address] [place] [address], [place] [address] Aug, [facility] [address] [id number] [address] [place] [address], [place] [address] Aug, [facility] [address] [id number] [address] [place] [address], [place] [address] Aug, [facility] [address] [id number] [address] [place] [address], [place] [address] 06 Aug, 2012 [facility] [address] [id number] [address] [place] [address], [place] [address] 05 Aug, 2012 [facility] [address] [id number] [address] [place] [address], [place] [address] 05 Aug, 2012 [facility] [address] [id number] [address] [place] [address], [place] [address] 20 Aug, 2012 [facility] [address] [id number] [address] [place] [address], [place] [id number] 14 Aug, 2012 [facility] [address] [id number] [address] [place] [address], [place] [id number] 12 Aug, 2012 [facility] [address] [id number] [address] [place] [address], [place] [address] 11 Aug, 2012 [facility] [address] [id number] [address] [place] [address], [place] [id number] 29 Jul, 2012 [facility] [address] [id number] [address] [place] [address], [place] [id number] 15 Jul, 2012 [facility] [address] [id number] [address] [place] [address], [place] [id number] 08 Jul, 2012 [facility] [address] [id number] [address] [place] [address], [place] [id number] 20 Jun, 2012 [facility] [address] [id number] [address] [place] [address], [place] [id number] 18 Jun, 2012 [facility] [address] [id number] [address] [place] [address], [place] [id number] 18 Jun, 2012 [facility] [address] [id number] [address] [place] [address], [place] [address] 18 Jun, 2012 [facility] [address] [id number] [address] [place] [address], [place] [address] 18 Jun, 2012 [facility] [address] [id number] [address] [place] [address], [place] [id number] 14 Jun, 2012 [facility] [address] [id number] [address] [place] [address], [place] [address] 14 Jun, 2012 [facility] [address] [id number] [address] [place] [address], [place] [id number] 13 Jun, 2012 [facility] [address] [id number] [address] [place] [address], [place] [id number] 13 Jun, 2012 [facility] [address] [id number] [address] [place] [address], [place] [address] Jun, [facility] [address] [id number] [address] [place] [address], [place] [address] Jun, [facility] [address] [id number] [address] [place] [address], [place] [address] Jun, [facility] [address] [id number] [address] [place] [address], [place] [address] Jun, [facility] [address] [id number] [address] [place] [address], [place] [address] Jun, [facility] [address] [id number] [address] [place] [address], [place] [address] Jun, [facility] [address] [id number] [address] [place] [address], [place] [address] Jun, [facility] [address] [id number] [address] [place] [address], [place] [address] Jun, [facility] [address] [id number] [address] [place] [address], [place] [address] Jun, [facility] [address] [id number] [address] [place] [address], [place] [address] Jun, [facility] [address] [id number] [address] [place] [address], [place] [address] Jun, [facility] [address] [id number] [address] [place] [address], [place] [address] Jun, [facility] [address] [id number] [address] [place] [address], [place] [address] Jun, [facility] [address] [id number] [address] [place] [address], [place] [address] Jun, [facility] [address] [id number] [address] [place] [address], [place] [address] May, [facility] [address] [id number] [address] [place] [address], [place] [address] May, [facility] [address] [id number] [address] [place] [address], [place] [address] May, [facility] [address] [id number] [address] [place] [address], [place] [address] May, [facility] [address] [id number] [address] [place] [address], [place] [address] May, [facility] [address] [id number] [address] [place] [address], [place] [address] May, [facility] [address] [id number] [address] [place] [address], [place] [address] May, [facility] [address] [id number] [address] [place] [address], [place] [address] May, [facility] [address] [id number] [address] [place] [address], [place] [address] Apr, [facility] [address] [id number] [address] [place] [address], [place] [address] Apr, [facility] [address] [id number] [address] [place] [address], [place] [id number] 29 Apr, 2012 [facility] [address] [id number] [address] [place] [address], [place] [address] Apr, [facility] [address] [id number] [address] [place] [address], [place] [address] Apr, [facility] [address] [id number] [address] [place] [id number] Apr, [facility] [address] [id number] [address] [place] [address], [place] [address] Apr, [facility] [address] [id number] [address] [place] [address], [place] [address] Apr, [facility] [address] [id number] [address] [place] [address], [place] [address] Apr, [facility] [address] [id number] [address] [place] [address], [place] [address] Apr, [facility] [address] [id number] [address] [place] [address], [place] [address] Apr, [facility] [address] [id number] [address] [place] [address], [place] [address] Apr, [facility] [address] [id number] [address] [place] [address], [place] [address] Mar, [facility] [address] [id number] [address] [place] [address], [place] [address] 18 Mar, 2012 [facility] [address] [id number] [address] [place] [address], [place] [address] Mar, [facility] [address] [id number] [address] [place] [address], [place] [address] Mar, [facility] [address] [id number] [address] [place] [id number] Mar, [facility] [address] [id number] [address] [place] [id number] Mar, [facility] [address] [id number] [address] [place] [id number] Mar, [facility] [address] [id number] [address] [place] [address], [place] [address] Jan, [facility] [address] [id number] [address] [place] [id number] Jan, [facility] [address] [id number] [address] [place] [id number] Jan, [facility] [address] [id number] [address] [place] [address] [id number] Jan, [facility] [address] [id number] [address] [place] [id number] Jan, [facility] [address] [id number] [address] [place] [id number] Jan, [facility] [address] [id number] [facility] [place] [address] Jan, [facility] [address] [id number] [address] [place] [address], [place] [address] 14 Feb, 2012 [facility] [address] [id number] [address] [place] [address], [place] [address] Jan, [facility] [address] [id number] [address] [place] [address], [place] [address] Jan, [facility] [address] [id number] [address] [place] [address], [place] [address] Jan, [facility] [address] [id number] [address] [place] [address], [place] [address] Dec, [facility] [address] [id number] [address] [place] [address], [place] [address] Dec, [facility] [address] [id number] [address] [place] [address], [place] [address] Dec, [facility] [address] [id number] [address] [place] [address], [place] [address] Dec, [facility] [address] [id number] [address] [place] [address], [place] [address] Dec, [facility] [address] [id number] [address] [place] [address], [place] [address] Dec, [facility] [address] [id number] [address] [place] [address], [place] [address] 18 Jan, 2012 [facility] [address] [id number] [address] [place] [address], [place] [address] 17 Jan, 2012 [facility] [address] [id number] [address] [place] [address], [place] [address] 16 Jan, 2012 [facility] [address] [id number] [address] [place] [address], [place] [address] 13 Jan, 2012 [facility] [address] [id number] [address] [place] [address], [place] [address] 13 Jan, 2012 [facility] [address] [id number] [address] [place] [address], [place] [address] Dec, [facility] [address] [id number] [address] [place] [address], [place] [address] Dec, [facility] [address] [id number] [address] [place] [address], [place] [address] Dec, [facility] [address] [id number] [address] [place] [address], [place] [address] Dec, [facility] [address] [id number] [address] [place] [address], [place] [address] Dec, [facility] [address] [id number] [address] [place] [address], [place] [address] 15 Dec, 2011 [facility] [address] [id number] [address] [place] [address], [place] [address] Dec, [facility] [address] [id number] [address] [place] [address], [place] [address] Dec, [facility] [address] [id number] [address] [place] [address], [place] [address] October, [facility] [address] [id number] [address] [place] [address], [place] [address] October, [facility] [address] [id number] [address] [place] [address], [place] [address] October, [facility] [address] [id number] [address] [place] [address], [place] [address] October, [facility] [address] [id number] [address] [place] [address], [place] [address] October, [facility] [address] [id number] [address] [place] [address], [place] [address] October, [facility] [address] [id number] [address] [place] [address], [place] [address] Oct, [facility] [address] [id number] [address] [place] [address], [place] [address] 24 Oct, 2011 [facility] [address] [id number] [address] [place] [address], [place] [address] Oct, [facility] [address] [id number] [address] [place] [address], [place] [address] Oct, [facility] [address] [id number] [address] [place] [address], [place] [address] Oct, [facility] [address] [id number] [address] [place] [address], [place] [address] Oct, [facility] [address] [id number] [address] [place] [address], [place] [address] Oct, [facility] [address] [id number] [address] [place] [address], [place] [address] Aug, [facility] [address] [id number] [address] [place] [address], [place] [address] Aug, [facility] [address] [id number] [address] [place] [address], [place] [address] Aug, [facility] [address] [id number] [address] [place] [address], [place] [address] Aug, [facility] [address] [id number] [address] [place] [address], [place] [address] Aug, [facility] [address] [id number] [address] [place] [address], [place] [address] Aug, [facility] [address] [id number] [address] [place] [address], [place] [address] Aug, [facility] [address] [id number] [address] [place] [address], [place] [address] Aug, [facility] [address] [id number] [address] [place] [address], [place] [address] 08 Aug, 2011 [facility] [address] [id number] [address] [place] [id number] Jul, [facility] [address] [id number] [address] [place] [address], [place] [address] Jul, [facility] [address] [id number] [address] [place] [address], [place] [address] Jul, [facility] [address] [id number] [address] [place] [address], [place] [address] Jul, [facility] [address] [id number] [address] [place] [address], [place] [address] Jun, [facility] [address] [id number] [address] [place] [address], [place] [address] Jun, [facility] [address] [id number] [address] [place] [address], [place] [address] May, [facility] [address] [id number] [address] [place] [address], [place] [address] May, [facility] [address] [id number] [address] [place] [address], [place] [address] May, [facility] [address] [id number] [address] [place] [address], [place] [address] May, [facility] [address] [id number] [address] [place] [address], [place] [address] May, [facility] [address] [id number] [address] [place] [address], [place] [address] Apr, [facility] [address] [id number] [address] [place] [address], [place] [address] Apr, [facility] [address] [id number] [address] [place] [address], [place] [address] Apr, [facility] [address] [id number] [address] [place] [address], [place] [address] 15 Jan, 2011 [facility] [address] [id number] [address] [place] [address], [place] [address] Dec, [facility] [address] [facility] [id number] [address] [place] [id number] October, [facility] [address] [facility] [id number] [address] [place] [id number] Jun, [facility] [address] [facility] [id number] [address] [place] [id number] Apr, [facility] [address] [facility] [id number] [address] [place] [id number] Apr, [facility] [address] [facility] [id number] [address] [place] [id number] Apr, [facility] [address] [facility] [id number] [address] [place] [id number] Jun, IMMUNIZATIONS No Known Immunizations SOCIAL HISTORY [...]
--- OUTSIDE RECORDS SUMMARY | 2020-01-25 13:33 | XMS REPORT ---
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 Name Role Phone Migration, Doctor Unavailable Unavailable PROBLEMS Type Condition ICD9-CM Code [id number] Code Onset Dates Condition S tatus SNOMED Code Problem Chronic hepatitis C without hepatic coma B18.2 Active 449720843 Problem Cannabis abuse F12.10 Active 11572 009 Problem Bipolar 1 disorder F31.9 Active 3 39141017 Problem Attention deficit hyperactivity disorder (ADHD), combi luciano type F90.2 Active 74286087 Problem Attention deficit R41.840 Active 76 572982 Problem Hot flashes due to menopause N95.1 A ctive 073085387 Problem H/O laminectomy Z98.89 Active 1616 47907 Problem Other chronic pain G89.29 Active 8 8251279 Problem Anxiety disorder, unspecified type F41.9 Active 322516926 Problem Bipolar disorder, in partial remission, most rec ent episode hypomanic F31.71 Active [id number] ALLERGIES No Information ENCOUNTERS Encounter Location Date Diagnosis [facility] [address] [facility] [id number] [address] [place] [phone] Aug, [facility] [address] [facility] [id number] [address] [place] [id number] Jul, [facility] [address] [facility] [id number] [address] [place] [phone] Jul, [facility] [address] [facility] [id number] [address] [place] [phone] Apr, [facility] [address] [facility] [id number] [address] [place] [phone] Mar, Hot flashes due to menopause N95.1 ; Anxiety disorder, unspecified type F41.9 ; Low back pain M54.5 and Encounter for immunization Z23 [facility] [address] [facility] [id number] [address] [place] [phone] Dec, Other chronic pain G89.29 an d Low back pain M54.5 [facility] [address] [id number] [address] [place] [phone] October, [facility] [address] [id number] [address] [place] [phone] October, [facility] [address] [id number] [address] [place] [id number] October, [facility] [address] [id number] [address] [place] [address] October, Other chronic pain G89.29 an d Chronic hepatitis C without hepatic coma B18.2 [facility] [address] [id number] [address] [place] [address] Aug, Bipolar disorder, in partial remission, most recent episode hypomanic F31.71 ; Attention deficit hyperactivity disorder (ADHD), combined type F90.2 and Anxiety disorder, unspecified type F41.9 [facility] [address] [id number] [address] [place] [id number] Aug, [facility] [address] [facility] [id number] [address] [place] [id number] Aug, Bipolar disorder, in partial remission, most recent episode hypomanic F31.71 [facility] [address] [id number] [address] [place] [phone] Aug, [facility] [address] [id number] [address] [place] [phone] Aug, Bipolar disorder, in partial remission, most recent episode hypomanic F31.71 [facility] [address] [id number] [address] [place] [address] Aug, Bipolar disorder, in partial remission, most recent episode hypomanic F31.71 ; Attention deficit hyperactivity disorder (ADHD), combined type F90.2 and Anxiety disorder, unspecified type F41.9 [facility] [address] [id number] [address] [place] [address] Aug, Low back pain M54.5 and Pain in left wrist M25.532 [facility] [address] [id number] [address] [place] [address] Aug, [facility] [address] [id number] [address] [place] [phone] Jun, [facility] [address] [id number] [address] [place] [address] Apr, Bipolar disorder, in partial remission, most recent episode hypomanic F31.71 [facility] [address] [id number] [address] [place] [id number] Apr, [facility] [address] [id number] [address] [place] [id number] Apr, Bipolar disorder, in partial remission, most recent episode hypomanic F31.71 ; Attention deficit hyperactivity disorder (ADHD), combined type F90.2 ; Anxiety disorder, unspecified type F41.9 and 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 [facility] [address] [id number] [address] [place] [phone] Apr, Bipolar disorder, in partial remission, most recent episode hypomanic F31.71 [facility] [address] [id number] [address] [place] [id number] Apr, Bipolar disorder, in partial remission, most recent episode hypomanic F31.71 [facility] [address] [id number] [address] [place] [address] Mar, [facility] [address] [id number] [address] [place] [address] Mar, Bipolar disorder, in partial remission, most recent episode hypomanic F31.71 ; Encounter for immunization Z23 and Low back pain M54.5 [facility] [address] [id number] [address] [place] [address] Mar, Bipolar disorder, in partial remission, most recent episode hypomanic F31.71 [facility] [address] [id number] [address] [place] [address] Mar, Bipolar disorder, in partial remission, most recent episode hypomanic F31.71 [facility] [address] [id number] [address] [place] [address] Jan, Bipolar disorder, in partial remission, most recent episode hypomanic F31.71 [facility] [address] [id number] [address] [place] [address] Jan, Bipolar disorder, in partial remission, most recent episode hypomanic F31.71 [facility] [address] [id number] [address] [place] [address] Dec, Bipolar disorder, in partial remission, most recent episode hypomanic F31.71 [facility] [address] [id number] [address] [place] [address] Dec, Bipolar disorder, in partial remission, most recent episode hypomanic F31.71 ; Attention deficit hyperactivity disorder (ADHD), combined type F90.2 ; Anxiety disorder, unspecified type F41.9 and Other alf (current) drug therapy Z79.899 [facility] [address] [id number] [address] [place] [phone] Dec, Bipolar disorder, in partial remission, most recent episode hypomanic F31.71 [facility] [address] [id number] [address] [place] [address] Dec, Bipolar disorder, in partial remission, most recent episode hypomanic F31.71 [facility] [address] [id number] [address] [place] [address] October, Bipolar disorder, in partial remission, most recent episode hypomanic F31.71 [facility] [address] [id number] [address] [place] [phone] October, [facility] [address] [id number] [address] [place] [phone] October, [facility] [address] [id number] [address] [place] [phone] Oct, Bipolar disorder, in partial remission, most recent episode hypomanic F31.71 ; Attention deficit hyperactivity disorder (ADHD), combined type F90.2 ; Anxiety disorder, unspecified type F41.9 and Encounter for drug screening Z02.83 [facility] [address] [id number] [address] [place] [address] Oct, Bipolar disorder, in partial remission, most recent episode hypomanic F31.71 [facility] [address] [id number] [address] [place] [address] Oct, Bipolar disorder, in partial remission, most recent episode hypomanic F31.71 [facility] [address] [id number] [address] [place] [id number] Aug, Bipolar disorder, in partial remission, most recent episode hypomanic F31.71 [facility] [address] [id number] [address] [place] [phone] Aug, Bipolar disorder, in partial remission, most recent episode hypomanic F31.71 [facility] [address] [id number] [address] [place] [phone] Aug, Bipolar disorder, in partial remission, most recent episode hypomanic F31.71 [facility] [address] [id number] [address] [place] [address] Jul, Bipolar disorder, in partial remission, most recent episode hypomanic F31.71 ; Attention deficit hyperactivity disorder (ADHD), combined type F90.2 and Anxiety disorder, unspecified type F41.9 [facility] [address] [id number] [address] [place] [phone] Jul, Bipolar disorder, in partial remission, most recent episode hypomanic F31.71 [facility] [address] [id number] [address] [place] [phone] Jun, Bipolar disorder, in partial remission, most recent episode hypomanic F31.71 [facility] [address] [facility] [id number] [address] [place] [id number] 17 May, 2017 Bipolar disorder, in partial remission, most recent episode hypomanic F31.71 [facility] [address] [facility] [id number] [address] [place] [address] May, Bipolar disorder, in partial remission, most recent episode hypomanic F31.71 [facility] [address] [facility] [id number] [address] [place] [phone] Apr, [facility] [address] [facility] [id number] [address] [place] [phone] Apr, Bipolar disorder, in partial remission, most recent episode hypomanic F31.71 ; Attention deficit hyperactivity disorder (ADHD), combined type F90.2 ; Anxiety disorder, unspecified type F41.9 and Cannabis abuse F12.10 [facility] [address] [facility] [id number] [address] [place] [phone] Apr, Attention deficit hyperactiv ity disorder (ADHD), combined type F90.2 [facility] [address] [facility] [id number] [address] [place] [phone] Mar, Attention deficit hyperactiv ity disorder (ADHD), combined type F90.2 [facility] [address] [facility] [id number] [address] [place] [id number] 14 Mar, 2017 Anxiety disorder, unspecifie d type F41.9 [facility] [address] [facility] [id number] [address] [place] [phone] Jan, Attention deficit hyperactiv ity disorder (ADHD), combined type F90.2 [facility] [address] [facility] [id number] [address] [place] [phone] Jan, Anxiety disorder, unspecifie d type F41.9 [facility] [address] [facility] [id number] [address] [place] [phone] Jan, Other chronic pain G89.29 ; Chronic hepatitis C without hepatic coma B18.2 and Bipolar 1 disorder F31.9 [facility] [address] [place] [id number] [address] [place] [phone] Dec, Attention deficit hyperactiv ity disorder (ADHD), combined type F90.2 [facility] [address] [place] [id number] [address] [place] [phone] Dec, Bipolar disorder, in partial remission, most recent episode hypomanic F31.71 ; Attention deficit hyperactivity disorder (ADHD), combined type F90.2 and Anxiety disorder, unspecified type F41.9 [place] [address] [place] [id number] [address] [place] [phone] Dec, Bipolar disorder, in partial remission, most recent episode hypomanic F31.71 ; Attention deficit hyperactivity disorder (ADHD), combined type F90.2 and Anxiety disorder, unspecified type F41.9 [place] [address] [place] [id number] [address] [place] [address] Dec, Bipolar 1 disorder F31.9 and Attention deficit R41.840 [place] [address] [address] Oct, Other chronic pain G89.29 ; Alopecia L65.9 and Screening, lipid Z13.220 [place] [address] [place] [id number] [place] [address] Oct, [place] [address] [place] [id number] [address] [place] [address] Aug, [place] [address] [place] [id number] [place] [address] Aug, Eustachian tube dysfunction, right H69.81 ; Vertigo R42 and Other chronic pain G89.29 [place] [address] [place] [id number] [address] [place] [phone] Aug, [place] [address] [place] [id number] [address] [place] [phone] Jun, [place] [address] [place] [id number] [address] [place] [phone] 14 Jun, 2016 Low back pain M54.5 and Othe r chronic pain G89.29 [facility] [address] [facility] [id number] [address] [place] [phone] Jun, [facility] [address] [facility] [id number] [address] [place] [phone] May, [facility] [address] [place] [id number] [place] [phone] Jan, [facility] [address] [place] [id number] [place] [phone] Dec, [facility] [address] [id number] Dec, [facility] [address] [place] [id number] [place] [phone] Jun, [facility] [address] [address] Apr, Eustachian tube dysfunction, unspecified laterality H69.80 ; Hot flashes N95.1 and Encounter for immunization Z23 [facility] [address] [id number] Jan, [facility] [address] [place] [id number] [place] [id number] Jan, [facility] [address] [id number] Jan, [facility] [address] [place] [id number] [place] [address] Jan, [facility] [address] [id number] Jan, Encounter to establish care V65.8 ; Bipolar 1 disorder 296.7 ; Abdominal pain 789.00 ; Constipation 564.00 ; Hard of hearing 389.9 and Drug abuse 305.90 [facility] [address] [place] [id number] [address] [place] [address] Dec, [facility] [address] [id number] [address] [place] [address], [place] [address] October, [facility] [address] [id number] [address] [place] [address], [place] [address] October, [facility] [address] [id number] [address] [place] [address], [place] [address] Oct, [facility] [address] [id number] [address] [place] [address], [place] [address] Oct, [facility] [address] [id number] [address] [place] [address], [place] [address] Oct, [facility] [address] [id number] [address] [place] [address], [place] [address] Aug, [facility] [address] [id number] [address] [place] [address], [place] [address] Aug, [facility] [address] [id number] [address] [place] [address], [place] [address] Aug, [facility] [address] [id number] [address] [place] [address], [place] [address] Aug, [facility] [address] [id number] [address] [place] [address], [place] [id number] Aug, [facility] [address] [id number] [address] [place] [address], [place] [address] Aug, [facility] [address] [id number] [address] [place] [address] Aug, [facility] [address] [id number] [address] [place] [address], [place] [address] Aug, [facility] [address] [id number] [address] [place] [address], [place] [address] Aug, [facility] [address] [id number] [address] [place] [address], [place] [address] Aug, [facility] [address] [id number] [address] [place] [address], [place] [id number] Aug, [facility] [address] [id number] [address] [place] [address], [place] [id number] Aug, [facility] [address] [id number] [address] [place] [address], [place] [address] Aug, [facility] [address] [id number] [address] [place] [address], [place] [address] Aug, [facility] [address] [id number] [address] [place] [address], [place] [id number] Aug, [facility] [address] [id number] [address] [place] [address], [place] [address] Jul, [facility] [address] [id number] [address] [place] [address], [place] [id number] Jul, [facility] [address] [id number] [address] [place] [address], [place] [id number] Jul, [facility] [address] [id number] [address] [place] [address], [place] [address] Jul, [facility] [address] [id number] [address] [place] [address], [place] [id number] Jul, [facility] [address] [id number] [address] [place] [address], [place] [address] Jul, [facility] [address] [id number] [address] [place] [address], [place] [address] Jul, [facility] [address] [id number] [address] [place] [address], [place] [address] Jul, [facility] [address] [id number] [address] [place] [address], [place] [address] Jun, [facility] [address] [id number] [address] [place] [address], [place] [id number] Jun, [facility] [address] [id number] [address] [place] [address], [place] [address] Jun, [facility] [address] [id number] [address] [place] [address], [place] [address] Jun, [facility] [address] [id number] [address] [place] [address], [place] [address] Jun, [facility] [address] [id number] [address] [place] [address], [place] [address] Jun, [facility] [address] [id number] [address] [place] [address], [place] [address] Jun, [facility] [address] [id number] [address] [place] [address], [place] [address] Jun, [facility] [address] [id number] [address] [place] [address], [place] [address] Jun, [facility] [address] [id number] [address] [place] [address], [place] [id number] Jun, [facility] [address] [id number] [address] [place] [address], [place] [address] Jun, [facility] [address] [id number] [address] [place] [address], [place] [address] May, [facility] [address] [id number] [address] [place] [address], [place] [address] May, [facility] [address] [id number] [address] [place] [address], [place] [address] May, [facility] [address] [id number] [address] [place] [address], [place] [id number] May, [facility] [address] [id number] [address] [place] [address], [place] [address] May, [facility] [address] [id number] [address] [place] [address], [place] [address] May, [facility] [address] [id number] [address] [place] [address], [place] [id number] May, [facility] [address] [id number] [address] [place] [address], [place] [address] Apr, [facility] [address] [id number] [address] [place] [address], [place] [address] Apr, [facility] [address] [id number] [address] [place] [address], [place] [id number] Apr, [facility] [address] [id number] [address] [place] [address], [place] [address] Apr, [facility] [address] [id number] [address] [place] [address], [place] [id number] Apr, [facility] [address] [id number] [address] [place] [address], [place] [id number] Apr, [facility] [address] [id number] [address] [place] [address], [place] [id number] Mar, [facility] [address] [id number] [address] [place] [address], [place] [id number] Mar, [facility] [address] [id number] [address] [place] [address], [place] [address] Mar, [facility] [address] [id number] [address] [place] [address], [place] [id number] Mar, [facility] [address] [id number] [address] [place] [address], [place] [id number] Mar, [facility] [address] [id number] [address] [place] [address], [place] [id number] Mar, [facility] [address] [id number] [address] [place] [address], [place] [id number] Jan, [facility] [address] [id number] [address] [place] [address], [place] [id number] Jan, [facility] [address] [id number] [address] [place] [address], [place] [id number] Jan, [facility] [address] [id number] [address] [place] [address], [place] [id number] Jan, [facility] [address] [id number] [facility] [place] [id number] Dec, [facility] [address] [id number] [address] [place] [address], [place] [id number] Dec, [facility] [address] [id number] [address] [place] [address], [place] [id number] Dec, [facility] [address] [id number] [address] [place] [address], [place] [id number] Dec, [facility] [address] [id number] [address] [place] [address], [place] [id number] Dec, [facility] [address] [id number] [address] [place] [address], [place] [id number] Dec, [facility] [address] [id number] [address] [place] [address], [place] [id number] Dec, [facility] [address] [id number] [address] [place] [address], [place] [id number] Dec, [facility] [address] [id number] [address] [place] [address], [place] [id number] Dec, [facility] [address] [id number] [address] [place] [address], [place] [id number] Dec, [facility] [address] [id number] [address] [place] [address], [place] [id number] Dec, [facility] [address] [id number] [address] [place] [address], [place] [id number] Dec, [facility] [address] [id number] [address] [place] [address], [place] [id number] October, [facility] [address] [id number] [address] [place] [address], [place] [id number] October, [facility] [address] [id number] [address] [place] [address], [place] [id number] October, [facility] [address] [id number] [address] [place] [address], [place] [id number] October, [facility] [address] [id number] [address] [place] [address], [place] [id number] October, [facility] [address] [id number] [address] [place] [address], [place] [id number] October, [facility] [address] [id number] [address] [place] [address], [place] [id number] Oct, [facility] [address] [id number] [address] [place] [address], [place] [id number] Oct, [facility] [address] [id number] [address] [place] [address], [place] [id number] Oct, [facility] [address] [id number] [address] [place] [address], [place] [id number] Oct, [facility] [address] [id number] [address] [place] [address], [place] [id number] Oct, [facility] [address] [id number] [address] [place] [address], [place] [id number] Oct, [facility] [address] [id number] [address] [place] [address], [place] [id number] Oct, [facility] [address] [id number] [address] [place] [address], [place] [id number] Oct, [facility] [address] [id number] [address] [place] [address], [place] [id number] Oct, [facility] [address] [id number] [address] [place] [address], [place] [id number] Oct, [facility] [address] [id number] [address] [place] [address], [place] [id number] Oct, [facility] [address] [id number] [address] [place] [address], [place] [id number] Oct, [facility] [address] [id number] [address] [place] [address], [place] [id number] Aug, [facility] [address] [id number] [address] [place] [address], [place] [id number] 15 Aug, 2013 [facility] [address] [id number] [address] [place] [address], [place] [id number] 11 Aug, 2013 [facility] [address] [id number] [address] [place] [address], [place] [id number] Aug, [facility] [address] [id number] [address] [place] [address], [place] [id number] 05 Aug, 2013 [facility] [address] [id number] [address] [place] [address], [place] [id number] 05 Aug, 2013 [facility] [address] [id number] [address] [place] [address], [place] [id number] 04 Aug, 2013 [facility] [address] [id number] [address] [place] [address], [place] [id number] Aug, [facility] [address] [id number] [address] [place] [address], [place] [id number] Aug, [facility] [address] [id number] [address] [place] [address], [place] [id number] 24 Aug, 2013 [facility] [address] [id number] [address] [place] [address], [place] [id number] 24 Aug, 2013 [facility] [address] [id number] [address] [place] [address], [place] [id number] Aug, [facility] [address] [id number] [address] [place] [address], [place] [id number] Aug, [facility] [address] [id number] [address] [place] [address], [place] [id number] Aug, [facility] [address] [id number] [address] [place] [address], [place] [id number] 14 Aug, 2013 [facility] [address] [id number] [address] [place] [address], [place] [id number] 14 Aug, 2013 [facility] [address] [id number] [address] [place] [id number] 14 Aug, 2013 [facility] [address] [id number] [address] [place] [address], [place] [id number] 14 Aug, 2013 [facility] [address] [id number] [address] [place] [address], [place] [id number] 07 Aug, 2013 [facility] [address] [id number] [address] [place] [address], [place] [id number] 07 Aug, 2013 [facility] [address] [id number] [address] [place] [address], [place] [id number] 06 Aug, 2013 [facility] [address] [id number] [address] [place] [address], [place] [id number] Aug, [facility] [address] [id number] [address] [place] [address], [place] [id number] Aug, [facility] [address] [id number] [address] [place] [address], [place] [id number] Aug, [facility] [address] [id number] [address] [place] [address], [place] [id number] Aug, [facility] [address] [id number] [address] [place] [address], [place] [id number] Jul, [facility] [address] [id number] [address] [place] [address], [place] [id number] Jul, [facility] [address] [id number] [address] [place] [address], [place] [id number] Jul, [facility] [address] [id number] [address] [place] [address], [place] [id number] Jul, [facility] [address] [id number] [address] [place] [address], [place] [id number] Jul, [facility] [address] [id number] [address] [place] [address], [place] [id number] Jul, [facility] [address] [id number] [address] [place] [address], [place] [id number] Jul, [facility] [address] [id number] [address] [place] [address], [place] [id number] Jul, [facility] [address] [id number] [address] [place] [address], [place] [id number] Jul, [facility] [address] [id number] [address] [place] [address], [place] [id number] Jul, [facility] [address] [id number] [address] [place] [address], [place] [id number] Jul, [facility] [address] [id number] [address] [place] [address], [place] [id number] Jul, [facility] [address] [id number] [address] [place] [address], [place] [id number] Jul, [facility] [address] [id number] [address] [place] [address], [place] [id number] Jul, [facility] [address] [id number] [address] [place] [address], [place] [id number] Jul, [facility] [address] [id number] [address] [place] [address], [place] [id number] Jul, [facility] [address] [id number] [address] [place] [address], [place] [id number] Jul, [facility] [address] [id number] [address] [place] [address], [place] [id number] Jul, [facility] [address] [id number] [address] [place] [address], [place] [id number] Jul, [facility] [address] [id number] [address] [place] [address], [place] [id number] Jul, [facility] [address] [id number] [address] [place] [address], [place] [id number] Jun, [facility] [address] [id number] [address] [place] [address], [place] [id number] Jun, [facility] [address] [id number] [address] [place] [address], [place] [id number] 30 Jun, 2013 [facility] [address] [id number] [address] [place] [address], [place] [id number] 30 Jun, 2013 [facility] [address] [id number] [address] [place] [address], [place] [id number] Jun, [facility] [address] [id number] [address] [place] [address], [place] [id number] Jun, [facility] [address] [id number] [address] [place] [address], [place] [id number] Jun, [facility] [address] [id number] [address] [place] [address], [place] [id number] Jun, [facility] [address] [id number] [address] [place] [address], [place] [id number] Jun, [facility] [address] [id number] [address] [place] [address], [place] [id number] Jun, [facility] [address] [id number] [address] [place] [address], [place] [id number] Jun, [facility] [address] [id number] [address] [place] [address], [place] [id number] Jun, [facility] [address] [id number] [address] [place] [address], [place] [id number] Jun, [facility] [address] [id number] [address] [place] [address], [place] [id number] Jun, [facility] [address] [id number] [address] [place] [address], [place] [id number] 20 Jun, 2013 [facility] [address] [id number] [address] [place] [address], [place] [id number] 18 Jun, 2013 [facility] [address] [id number] [address] [place] [address], [place] [id number] 18 Jun, 2013 [facility] [address] [id number] [address] [place] [address], [place] [id number] 17 Jun, 2013 [facility] [address] [id number] [address] [place] [address], [place] [id number] 17 Jun, 2013 [facility] [address] [id number] [address] [place] [address], [place] [id number] Jun, [facility] [address] [id number] [address] [place] [address], [place] [id number] Jun, [facility] [address] [id number] [address] [place] [address], [place] [id number] Jun, [facility] [address] [id number] [address] [place] [address], [place] [id number] Jun, [facility] [address] [id number] [address] [place] [address], [place] [id number] Jun, [facility] [address] [id number] [address] [place] [address], [place] [id number] Jun, [facility] [address] [id number] [address] [place] [address], [place] [id number] Jun, [facility] [address] [id number] [address] [place] [address], [place] [id number] Jun, [facility] [address] [id number] [address] [place] [address], [place] [id number] May, [facility] [address] [id number] [address] [place] [address], [place] [id number] May, [facility] [address] [id number] [address] [place] [address], [place] [id number] May, [facility] [address] [id number] [address] [place] [address], [place] [id number] May, [facility] [address] [id number] [address] [place] [address], [place] [id number] May, [facility] [address] [id number] [address] [place] [address], [place] [id number] May, [facility] [address] [id number] [address] [place] [address], [place] [id number] 30 Apr, 2013 [facility] [address] [id number] [address] [place] [address], [place] [id number] 30 Apr, 2012 [facility] [address] [id number] [address] [place] [address], [place] [id number] 30 Apr, 2013 [facility] [address] [id number] [address] [place] [address], [place] [id number] 30 Apr, 2013 [facility] [address] [id number] [address] [place] [address], [place] [id number] Apr, [facility] [address] [id number] [address] [place] [address], [place] [id number] 15 Apr, 2013 [facility] [address] [id number] [address] [place] [id number] Apr, [facility] [address] [id number] [address] [place] [address], [place] [id number] Apr, [facility] [address] [id number] [address] [place] [id number] 26 Sep, 2012 [facility] [address] [id number] [address] [place] [address], [place] [id number] 24 Sep, 2012 [facility] [address] [id number] [address] [place] [id number] 17 Sep, 2012 [facility] [address] [id number] [address] [place] [id number] 17 Sep, 2012 [facility] [address] [id number] [address] [place] [id number] 11 Sep, 2012 [facility] [address] [id number] [address] [place] [address], [place] [id number] 10 Sep, 2012 [facility] [address] [id number] [address] [place] [id number] 05 Sep, 2012 [facility] [address] [id number] [address] [place] [id number] 04 Sep, 2012 [facility] [address] [id number] [address] [place] [address], [place] [id number] Jan, [facility] [address] [id number] [address] [place] [address], [place] [id number] Jan, [facility] [address] [id number] [address] [place] [address], [place] [id number] Jan, [facility] [address] [id number] [address] [place] [address], [place] [id number] Jan, [facility] [address] [id number] [address] [place] [address], [place] [id number] Jan, [facility] [address] [id number] [address] [place] [address], [place] [id number] Jan, [facility] [address] [id number] [address] [place] [address], [place] [id number] Dec, [facility] [address] [id number] [address] [place] [address], [place] [id number] 24 Dec, 2012 [facility] [address] [id number] [address] [place] [address], [place] [id number] Dec, [facility] [address] [id number] [address] [place] [address], [place] [id number] Dec, [facility] [address] [id number] [address] [place] [address], [place] [id number] 18 Dec, 2012 [facility] [address] [id number] [address] [place] [address], [place] [id number] 17 Dec, 2012 [facility] [address] [id number] [address] [place] [address], [place] [id number] 16 Dec, 2012 [facility] [address] [id number] [address] [place] [address], [place] [id number] 16 Dec, 2012 [facility] [address] [id number] [address] [place] [address], [place] [id number] 15 Dec, 2012 [facility] [address] [id number] [address] [place] [address], [place] [id number] Dec, [facility] [address] [id number] [address] [place] [address], [place] [id number] Dec, [facility] [address] [id number] [address] [place] [address], [place] [id number] Dec, [facility] [address] [id number] [address] [place] [address], [place] [id number] Dec, [facility] [address] [id number] [address] [place] [address], [place] [id number] Dec, [facility] [address] [id number] [address] [place] [address], [place] [id number] Dec, [facility] [address] [id number] [address] [place] [address], [place] [id number] Dec, [facility] [address] [id number] [address] [place] [address], [place] [id number] October, [facility] [address] [id number] [address] [place] [address], [place] [id number] October, [facility] [address] [id number] [address] [place] [address], [place] [id number] October, [facility] [address] [id number] [address] [place] [address], [place] [id number] October, [facility] [address] [id number] [address] [place] [address], [place] [id number] October, [facility] [address] [id number] [address] [place] [address], [place] [id number] October, [facility] [address] [id number] [address] [place] [address], [place] [id number] October, [facility] [address] [id number] [address] [place] [address], [place] [id number] Oct, [facility] [address] [id number] [address] [place] [address], [place] [id number] Oct, [facility] [address] [id number] [address] [place] [address], [place] [id number] 24 Oct, 2012 [facility] [address] [id number] [address] [place] [address], [place] [id number] 23 Oct, 2012 [facility] [address] [id number] [address] [place] [address], [place] [id number] Oct, [facility] [address] [id number] [address] [place] [address], [place] [id number] 18 Oct, 2012 [facility] [address] [id number] [address] [place] [address], [place] [id number] 17 Oct, 2012 [facility] [address] [id number] [address] [place] [address], [place] [id number] 15 Oct, 2012 [facility] [address] [id number] [address] [place] [address], [place] [id number] Oct, [facility] [address] [id number] [address] [place] [address], [place] [id number] Oct, [facility] [address] [id number] [address] [place] [address], [place] [id number] Oct, [facility] [address] [id number] [address] [place] [address], [place] [id number] Oct, [facility] [address] [id number] [address] [place] [address], [place] [id number] Aug, [facility] [address] [id number] [address] [place] [address], [place] [id number] Aug, [facility] [address] [id number] [address] [place] [address], [place] [id number] Aug, [facility] [address] [id number] [address] [place] [address], [place] [id number] 06 Aug, 2012 [facility] [address] [id number] [address] [place] [address], [place] [id number] 05 Aug, 2012 [facility] [address] [id number] [address] [place] [address], [place] [id number] 05 Aug, 2012 [facility] [address] [id number] [address] [place] [address], [place] [id number] 20 Aug, 2012 [facility] [address] [id number] [address] [place] [address], [place] [id number] 14 Aug, 2012 [facility] [address] [id number] [address] [place] [address], [place] [id number] 12 Aug, 2012 [facility] [address] [id number] [address] [place] [address], [place] [id number] 11 Aug, 2012 [facility] [address] [id number] [address] [place] [address], [place] [id number] 29 Jul, 2012 [facility] [address] [id number] [address] [place] [address], [place] [id number] 15 Jul, 2012 [facility] [address] [id number] [address] [place] [address], [place] [id number] 08 Jul, 2012 [facility] [address] [id number] [address] [place] [address], [place] [id number] 20 Jun, 2012 [facility] [address] [id number] [address] [place] [address], [place] [id number] 18 Jun, 2012 [facility] [address] [id number] [address] [place] [address], [place] [id number] 18 Jun, 2012 [facility] [address] [id number] [address] [place] [address], [place] [id number] 18 Jun, 2012 [facility] [address] [id number] [address] [place] [address], [place] [id number] 18 Jun, 2012 [facility] [address] [id number] [address] [place] [address], [place] [id number] 14 Jun, 2012 [facility] [address] [id number] [address] [place] [address], [place] [id number] 14 Jun, 2012 [facility] [address] [id number] [address] [place] [address], [place] [id number] 13 Jun, 2012 [facility] [address] [id number] [address] [place] [address], [place] [id number] 13 Jun, 2012 [facility] [address] [id number] [address] [place] [address], [place] [id number] Jun, [facility] [address] [id number] [address] [place] [address], [place] [id number] Jun, [facility] [address] [id number] [address] [place] [address], [place] [id number] Jun, [facility] [address] [id number] [address] [place] [address], [place] [id number] Jun, [facility] [address] [id number] [address] [place] [address], [place] [id number] Jun, [facility] [address] [id number] [address] [place] [address], [place] [id number] Jun, [facility] [address] [id number] [address] [place] [address], [place] [id number] Jun, [facility] [address] [id number] [address] [place] [address], [place] [id number] Jun, [facility] [address] [id number] [address] [place] [address], [place] [id number] Jun, [facility] [address] [id number] [address] [place] [address], [place] [id number] Jun, [facility] [address] [id number] [address] [place] [address], [place] [id number] Jun, [facility] [address] [id number] [address] [place] [address], [place] [id number] Jun, [facility] [address] [id number] [address] [place] [address], [place] [id number] Jun, [facility] [address] [id number] [address] [place] [address], [place] [id number] Jun, [facility] [address] [id number] [address] [place] [address], [place] [id number] May, [facility] [address] [id number] [address] [place] [address], [place] [id number] May, [facility] [address] [id number] [address] [place] [address], [place] [id number] May, [facility] [address] [id number] [address] [place] [address], [place] [id number] May, [facility] [address] [id number] [address] [place] [address], [place] [id number] May, [facility] [address] [id number] [address] [place] [address], [place] [id number] May, [facility] [address] [id number] [address] [place] [address], [place] [id number] May, [facility] [address] [id number] [address] [place] [address], [place] [id number] May, [facility] [address] [id number] [address] [place] [address], [place] [id number] Apr, [facility] [address] [id number] [address] [place] [address], [place] [id number] Apr, [facility] [address] [id number] [address] [place] [address], [place] [id number] 29 Apr, 2012 [facility] [address] [id number] [address] [place] [address], [place] [id number] Apr, [facility] [address] [id number] [address] [place] [address], [place] [id number] Apr, [facility] [address] [id number] [address] [place] [id number] Apr, [facility] [address] [id number] [address] [place] [address], [place] [id number] Apr, [facility] [address] [id number] [address] [place] [address], [place] [id number] Apr, [facility] [address] [id number] [address] [place] [address], [place] [id number] Apr, [facility] [address] [id number] [address] [place] [address], [place] [id number] Apr, [facility] [address] [id number] [address] [place] [address], [place] [id number] Apr, [facility] [address] [id number] [address] [place] [address], [place] [id number] Apr, [facility] [address] [id number] [address] [place] [address], [place] [id number] Mar, [facility] [address] [address] [id number] [address] [place] [address], [place] [id number] 18 Mar, 2012 [facility] [address] [id number] [address] [place] [address], [place] [id number] Mar, [facility] [address] [id number] [address] [place] [address], [place] [id number] Mar, [facility] [address] [id number] [address] [place] [id number] Mar, [facility] [address] [id number] [address] [place] [id number] Mar, [facility] [address] [id number] [address] [place] [id number] Mar, [facility] [address] [id number] [address] [place] [address], [place] [id number] Jan, [facility] [address] [id number] [address] [place] [id number] Jan, [facility] [address] [id number] [address] [place] [id number] Jan, [facility] [address] [id number] [address] [place] [id number] Jan, [facility] [address] [id number] [address] [place] [id number] Jan, [facility] [address] [id number] [address] [place] [id number] Jan, [facility] [address] [id number] [facility] [place] [id number] Jan, [facility] [address] [id number] [address] [place] [address], [place] [id number] 14 Feb, 2012 [facility] [address] [id number] [address] [place] [address], [place] [id number] Jan, [facility] [address] [id number] [address] [place] [address], [place] [id number] Jan, [facility] [address] [id number] [address] [place] [address], [place] [id number] Jan, [facility] [address] [id number] [address] [place] [address], [place] [id number] Dec, [facility] [address] [id number] [address] [place] [address], [place] [id number] Dec, [facility] [address] [id number] [address] [place] [address], [place] [id number] Dec, [facility] [address] [id number] [address] [place] [address], [place] [id number] Dec, [facility] [address] [id number] [address] [place] [address], [place] [id number] Dec, [facility] [address] [id number] [address] [place] [address], [place] [id number] Dec, [facility] [address] [id number] [address] [place] [address], [place] [id number] 18 Jan, 2012 [facility] [address] [id number] [address] [place] [address], [place] [id number] 17 Jan, 2012 [facility] [address] [id number] [address] [place] [address], [place] [id number] 16 Jan, 2012 [facility] [address] [id number] [address] [place] [address], [place] [id number] 13 Jan, 2012 [facility] [address] [id number] [address] [place] [address], [place] [id number] 13 Jan, 2012 [facility] [address] [id number] [address] [place] [address], [place] [id number] Dec, [facility] [address] [id number] [address] [place] [address], [place] [id number] Dec, [facility] [address] [id number] [address] [place] [address], [place] [id number] Dec, [facility] [address] [id number] [address] [place] [address], [place] [id number] Dec, [facility] [address] [id number] [address] [place] [address], [place] [id number] Dec, [facility] [address] [id number] [address] [place] [address], [place] [id number] 15 Dec, 2011 [facility] [address] [id number] [address] [place] [address], [place] [id number] Dec, [facility] [address] [id number] [address] [place] [address], [place] [id number] Dec, [facility] [address] [id number] [address] [place] [address], [place] [id number] October, [facility] [address] [id number] [address] [place] [address], [place] [id number] October, [facility] [address] [id number] [address] [place] [address], [place] [id number] October, [facility] [address] [id number] [address] [place] [address], [place] [id number] October, [facility] [address] [id number] [address] [place] [address], [place] [id number] October, [facility] [address] [id number] [address] [place] [address], [place] [id number] October, [facility] [address] [id number] [address] [place] [address], [place] [id number] Oct, [facility] [address] [id number] [address] [place] [address], [place] [id number] 24 Oct, 2011 [facility] [address] [id number] [address] [place] [address], [place] [id number] Oct, [facility] [address] [id number] [address] [place] [address], [place] [id number] Oct, [facility] [address] [id number] [address] [place] [address], [place] [id number] Oct, [facility] [address] [id number] [address] [place] [address], [place] [id number] Oct, [facility] [address] [id number] [address] [place] [address], [place] [id number] Oct, [facility] [address] [id number] [address] [place] [address], [place] [id number] Aug, [facility] [address] [id number] [address] [place] [address], [place] [id number] Aug, [facility] [address] [id number] [address] [place] [address], [place] [id number] Aug, [facility] [address] [id number] [address] [place] [address], [place] [id number] Aug, [facility] [address] [id number] [address] [place] [address], [place] [id number] Aug, [facility] [address] [id number] [address] [place] [address], [place] [id number] Aug, [facility] [address] [id number] [address] [place] [address], [place] [id number] Aug, [facility] [address] [id number] [address] [place] [address], [place] [id number] Aug, [facility] [address] [id number] [address] [place] [address], [place] [id number] 08 Aug, 2011 [facility] [address] [id number] [address] [place] [id number] Jul, [facility] [address] [id number] [address] [place] [address], [place] [id number] Jul, [facility] [address] [id number] [address] [place] [address], [place] [id number] Jul, [facility] [address] [id number] [address] [place] [address], [place] [id number] Jul, [facility] [address] [id number] [address] [place] [address], [place] [id number] Jun, [facility] [address] [id number] [address] [place] [address], [place] [id number] Jun, [facility] [address] [id number] [address] [place] [address], [place] [id number] May, [facility] [address] [id number] [address] [place] [address], [place] [id number] May, [facility] [address] [id number] [address] [place] [address], [place] [id number] May, [facility] [address] [id number] [address] [place] [address], [place] [id number] May, [facility] [address] [id number] [address] [place] [address], [place] [id number] May, [facility] [address] [id number] [address] [place] [address], [place] [id number] Apr, [facility] [address] [id number] [address] [place] [address], [place] [id number] Apr, [facility] [address] [id number] [address] [place] [address], [place] [id number] Apr, [facility] [address] [id number] [address] [place] [address], [place] [id number] 15 Jan, 2011 [facility] [address] [id number] [address] [place] [address], [place] [id number] Dec, [facility] [address] [facility] [id number] [address] [place] [id number] October, [facility] [address] [facility] [id number] [address] [place] [id number] Jun, [facility] [address] [facility] [id number] [address] [place] [id number] Apr, [facility] [address] [facility] [id number] [address] [place] [id number] Apr, [facility] [address] [facility] [id number] [address] [place] [id number] Apr, [facility] [address] [facility] [id number] [address] [place] [id number] Jun, IMMUNIZATIONS No Known Immunizations SOCIAL HISTORY [...]
--- OUTSIDE RECORDS SUMMARY | 2020-01-25 13:33 | XMS REPORT ---
Author Author Ana Iraheta Organization [facility] Address [address] [place] [address] Care Team Providers Care [employer] Architect Name Role Phone MELISA Iraheta Unavailable PROBLEMS Type Condition ICD9-CM Code [id number] Code Onset Dates Condition S tatus SNOMED Code Problem Chronic hepatitis C without hepatic coma B18.2 Active 325823383 Problem Cannabis abuse F12.10 Active 01099 009 Problem Bipolar 1 disorder F31.9 Active 3 12826135 Problem Attention deficit hyperactivity disorder (ADHD), combi luciano type F90.2 Active 72353689 Problem Attention deficit R41.840 Active 76 656329 Problem Hot flashes due to menopause N95.1 A ctive 699148878 Problem H/O laminectomy Z98.89 Active 1616 12739 Problem Other chronic pain G89.29 Active 8 6857634 Problem Anxiety disorder, unspecified type F41.9 Active 522223666 Problem Bipolar disorder, in partial remission, most rec ent episode hypomanic F31.71 Active [id number] ALLERGIES No Information ENCOUNTERS Encounter Location Date Diagnosis [place] [address] [facility] [id number] [address] [place] [phone] Aug, [facility] [address] [facility] [id number] [address] [place] [address] Jul, [facility] [address] [facility] [id number] [address] [place] [address] Jul, [facility] [address] [facility] [id number] [address] [place] [address] Apr, [facility] [address] [facility] [id number] [address] [place] [address] Mar, Hot flashes due to menopause N95.1 ; Anxiety disorder, unspecified type F41.9 ; Low back pain M54.5 and Encounter for immunization Z23 [facility] [address] [id number] [address] [place] [address] Dec, Other chronic pain G89.29 an d Low back pain M54.5 [facility] [address] [id number] [address] [place] [address] October, [facility] [address] [id number] [address] [place] [address] October, [facility] [address] [id number] [address] [place] [address] October, [facility] [address] [id number] [address] [place] [address] October, Other chronic pain G89.29 an d Chronic hepatitis C without hepatic coma B18.2 [facility] [address] [id number] [address] [place] [address] Aug, Bipolar disorder, in partial remission, most recent episode hypomanic F31.71 ; Attention deficit hyperactivity disorder (ADHD), combined type F90.2 and Anxiety disorder, unspecified type F41.9 [facility] [address] [id number] [address] [place] [address] Aug, [facility] [address] [id number] [address] [place] [address] Aug, Bipolar disorder, in partial remission, most recent episode hypomanic F31.71 [facility] [address] [id number] [address] [place] [address] Aug, [facility] [address] [id number] [address] [place] [address] Aug, Bipolar disorder, in partial remission, most recent episode hypomanic F31.71 [facility] [address] [id number] [address] [place] [address] Aug, Bipolar disorder, in partial remission, most recent episode hypomanic F31.71 ; Attention deficit hyperactivity disorder (ADHD), combined type F90.2 and Anxiety disorder, unspecified type F41.9 [facility] [address] [id number] [address] [place] [address] Aug, Low back pain M54.5 and Pain in left wrist M25.532 [facility] [address] [id number] [address] [place] [phone] Aug, [facility] [address] [id number] [address] [place] [address] Jun, [facility] [address] [id number] [address] [place] [address] Apr, Bipolar disorder, in partial remission, most recent episode hypomanic F31.71 [facility] [address] [id number] [address] [place] [id number] Apr, [facility] [address] [id number] [address] [place] [phone] Apr, Bipolar disorder, in partial remission, most recent episode hypomanic F31.71 ; Attention deficit hyperactivity disorder (ADHD), combined type F90.2 ; Anxiety disorder, unspecified type F41.9 and 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 manager (current) drug therapy Z79.899 [facility] [address] [id number] [address] [place] [id number] Apr, Bipolar disorder, in partial remission, most recent episode hypomanic F31.71 [facility] [address] [id number] [address] [place] [address] Apr, Bipolar disorder, in partial remission, most recent episode hypomanic F31.71 [facility] [address] [id number] [address] [place] [address] Mar, [facility] [address] [id number] [address] [place] [phone] Mar, Bipolar disorder, in partial remission, most recent episode hypomanic F31.71 ; Encounter for immunization Z23 and Low back pain M54.5 [facility] [address] [facility] [id number] [address] [place] [address] Mar, Bipolar disorder, in partial remission, most recent episode hypomanic F31.71 [facility] [address] [facility] [id number] [address] [place] [address] Mar, Bipolar disorder, in partial remission, most recent episode hypomanic F31.71 [facility] [address] [facility] [id number] [address] [place] [address] Jan, Bipolar disorder, in partial remission, most recent episode hypomanic F31.71 [facility] [address] [facility] [id number] [address] [place] [phone] Jan, Bipolar disorder, in partial remission, most recent episode hypomanic F31.71 [facility] [address] [facility] [id number] [address] [place] [phone] Dec, Bipolar disorder, in partial remission, most recent episode hypomanic F31.71 [facility] [address] [facility] [id number] [address] [place] [phone] Dec, Bipolar disorder, in partial remission, most recent episode hypomanic F31.71 ; Attention deficit hyperactivity disorder (ADHD), combined type F90.2 ; Anxiety disorder, unspecified type F41.9 and Other nursing home (current) drug therapy Z79.899 [facility] [address] [facility] [id number] [address] [place] [phone] Dec, Bipolar disorder, in partial remission, most recent episode hypomanic F31.71 [facility] [address] [facility] [id number] [address] [place] [phone] Dec, Bipolar disorder, in partial remission, most recent episode hypomanic F31.71 [facility] [address] [facility] [id number] [address] [place] [address] October, Bipolar disorder, in partial remission, most recent episode hypomanic F31.71 [facility] [address] [facility] [id number] [address] [place] [id number] October, [facility] [address] [facility] [id number] [address] [place] [phone] October, [facility] [address] [facility] [id number] [address] [place] [address] Oct, Bipolar disorder, in partial remission, most recent episode hypomanic F31.71 ; Attention deficit hyperactivity disorder (ADHD), combined type F90.2 ; Anxiety disorder, unspecified type F41.9 and Encounter for drug screening Z02.83 [facility] [address] [facility] [id number] [address] [place] [address] Oct, Bipolar disorder, in partial remission, most recent episode hypomanic F31.71 [facility] [address] [facility] [id number] [address] [place] [address] Oct, Bipolar disorder, in partial remission, most recent episode hypomanic F31.71 [facility] [address] [facility] [id number] [address] [place] [address] Aug, Bipolar disorder, in partial remission, most recent episode hypomanic F31.71 [facility] [address] [facility] [id number] [address] [place] [phone] Aug, Bipolar disorder, in partial remission, most recent episode hypomanic F31.71 [facility] [address] [facility] [id number] [address] [place] [phone] Aug, Bipolar disorder, in partial remission, most recent episode hypomanic F31.71 [facility] [address] [facility] [id number] [address] [place] [address] Jul, Bipolar disorder, in partial remission, most recent episode hypomanic F31.71 ; Attention deficit hyperactivity disorder (ADHD), combined type F90.2 and Anxiety disorder, unspecified type F41.9 [facility] [address] [facility] [id number] [address] [place] [address] Jul, Bipolar disorder, in partial remission, most recent episode hypomanic F31.71 [facility] [address] [facility] [id number] [address] [place] [id number] Jun, Bipolar disorder, in partial remission, most recent episode hypomanic F31.71 [facility] [address] [id number] [address] [place] [address] May, Bipolar disorder, in partial remission, most recent episode hypomanic F31.71 [facility] [address] [facility] [id number] [address] [place] [address] May, Bipolar disorder, in partial remission, most recent episode hypomanic F31.71 [facility] [address] [id number] [address] [place] [phone] Apr, [facility] [address] [facility] [id number] [address] [place] [address] Apr, Bipolar disorder, in partial remission, most recent episode hypomanic F31.71 ; Attention deficit hyperactivity disorder (ADHD), combined type F90.2 ; Anxiety disorder, unspecified type F41.9 and Cannabis abuse F12.10 [facility] [address] [facility] [id number] [address] [place] [address] Apr, Attention deficit hyperactiv ity disorder (ADHD), combined type F90.2 [facility] [address] [facility] [id number] [address] [place] [id number] Mar, Attention deficit hyperactiv ity disorder (ADHD), combined type F90.2 [facility] [address] [facility] [id number] [address] [place] [phone] 14 Mar, 2017 Anxiety disorder, unspecifie d type F41.9 [facility] [address] [id number] [address] [place] [phone] Jan, Attention deficit hyperactiv ity disorder (ADHD), combined type F90.2 [facility] [address] [facility] [id number] [address] [place] [address] Jan, Anxiety disorder, unspecifie d type F41.9 [facility] [address] [facility] [id number] [address] [place] [address] 03 Aug, 2017 Other chronic pain G89.29 ; Chronic hepatitis C without hepatic coma B18.2 and Bipolar 1 disorder F31.9 [facility] [address] [id number] [address] [place] [phone] Dec, Attention deficit hyperactiv ity disorder (ADHD), combined type F90.2 [facility] [address] [facility] [id number] [address] [place] [id number] Dec, Bipolar disorder, in partial remission, most recent episode hypomanic F31.71 ; Attention deficit hyperactivity disorder (ADHD), combined type F90.2 and Anxiety disorder, unspecified type F41.9 [facility] [address] [id number] [address] [place] [address] Dec, Bipolar disorder, in partial remission, most recent episode hypomanic F31.71 ; Attention deficit hyperactivity disorder (ADHD), combined type F90.2 and Anxiety disorder, unspecified type F41.9 [facility] [address] [facility] [id number] [address] [place] [address] Dec, Bipolar 1 disorder F31.9 and Attention deficit R41.840 [facility] [address] [facility] [id number] [address] [place] [address] Oct, Other chronic pain G89.29 ; Alopecia L65.9 and Screening, lipid Z13.220 [facility] [address] [facility] [id number] [address] [place] [address] Oct, [facility] [address] [facility] [id number] [address] [place] [address] Aug, [facility] [address] [id number] [address] [place] [address] Aug, Eustachian tube dysfunction, right H69.81 ; Vertigo R42 and Other chronic pain G89.29 [facility] [address] [id number] [address] [place] [phone] Aug, [facility] [address] [facility] [id number] [address] [place] [phone] Jun, [facility] [address] [facility] [id number] [address] [place] [phone] Jun, Low back pain M54.5 and Othe r chronic pain G89.29 [facility] [address] [facility] [id number] [address] [place] [address] Jun, [facility] [address] [facility] [id number] [address] [place] [id number] May, [facility] [address] [facility] [id number] [address] [place] [id number] Jan, [facility] [address] [facility] [id number] [place] [address] Dec, [facility] [address] [facility] [id number] [address] [place] [address] Dec, [facility] [address] [place] [id number] [place] [address] Jun, [facility] [address] [facility] [id number] [address] [place] [address] Apr, Eustachian tube dysfunction, unspecified laterality H69.80 ; Hot flashes N95.1 and Encounter for immunization Z23 [facility] [address] [facility] [id number] [address] [place] [address] Jan, [facility] [address] [place] [id number] [address] [place] [phone] Jan, [facility] [address] [facility] [id number] [address] [place] [id number] Jan, [facility] [address] [facility] [id number] [place] [address] Jan, [facility] [address] [place] [id number] [address] [place] [phone] Jan, Encounter to establish care V65.8 ; Bipolar 1 disorder 296.7 ; Abdominal pain 789.00 ; Constipation 564.00 ; Hard of hearing 389.9 and Drug abuse 305.90 [facility] [address] [id number] [address] [place] [address], [place] [address] Dec, [facility] [address] [id number] [address] [place] [address] October, [facility] [address] [id number] [address] [place] [address] October, [facility] [address] [id number] [address] [place] [id number] 30 Oct, 2014 [facility] [address] [id number] [address] [place] [address], [place] [address] Oct, [facility] [address] [id number] [address] [place] [address] Oct, [facility] [address] [id number] [address] [place] [phone] Aug, [facility] [address] [id number] [address] [place] [address] Aug, [facility] [address] [id number] [address] [place] [id number] Aug, [facility] [address] [id number] [address] [place] [address] Aug, [facility] [address] [id number] [address] [place] [address] Aug, [facility] [address] [id number] [address] [place] [address] Aug, [facility] [address] [id number] [address] [place] [address] Aug, [facility] [address] [id number] [address] [place] [address] Aug, [facility] [address] [id number] [address] [place] [phone] Aug, [facility] [address] [id number] [address] [place] [address], [place] [address] Aug, 2014 [facility] [address] [id number] [address] [place] [address], [place] [address] Aug, 2014 [facility] [address] [id number] [address] [place] [address], [place] [address] Aug, 2014 [facility] [address] [id number] [address] [place] [address], [place] [address] Aug, 2014 [facility] [address] [id number] [address] [place] [address], [place] [address] Aug, 2014 [facility] [address] [id number] [address] [place] [address], [place] [address] Aug, [facility] [address] [id number] [address] [place] [address], [place] [address] Jul, [facility] [address] [id number] [address] [place] [address], [place] [address] Jul, [facility] [address] [id number] [address] [place] [address], [place] [address] Jul, [facility] [address] [id number] [address] [place] [address], [place] [address] Jul, [facility] [address] [id number] [address] [place] [address], [place] [address] Jul, [facility] [address] [id number] [address] [place] [address], [place] [address] Jul, [facility] [address] [id number] [address] [place] [address], [place] [address] Jul, [facility] [address] [id number] [address] [place] [address], [place] [address] Jul, [facility] [address] [id number] [address] [place] [address], [place] [address] Jun, [facility] [address] [id number] [address] [place] [address], [place] [address] Jun, [facility] [address] [id number] [address] [place] [address], [place] [address] Jun, [facility] [address] [id number] [address] [place] [address], [place] [address] Jun, [facility] [address] [id number] [address] [place] [address], [place] [address] 18 Jun, 2014 [facility] [address] [id number] [address] [place] [address], [place] [address] Jun, [facility] [address] [id number] [address] [place] [address], [place] [address] Jun, [facility] [address] [id number] [address] [place] [address], [place] [address] Jun, [facility] [address] [id number] [address] [place] [address], [place] [address] Jun, [facility] [address] [id number] [address] [place] [address], [place] [address] Jun, [facility] [address] [id number] [address] [place] [address], [place] [address] Jun, [facility] [address] [id number] [address] [place] [address], [place] [address] May, [facility] [address] [id number] [address] [place] [address], [place] [address] May, [facility] [address] [id number] [address] [place] [address], [place] [address] May, [facility] [address] [id number] [address] [place] [address], [place] [address] May, [facility] [address] [id number] [address] [place] [address], [place] [address] May, [facility] [address] [id number] [address] [place] [address], [place] [address] May, [facility] [address] [id number] [address] [place] [address], [place] [address] May, [facility] [address] [id number] [address] [place] [address], [place] [address] Apr, [facility] [address] [id number] [address] [place] [address], [place] [address] Apr, [facility] [address] [id number] [address] [place] [address], [place] [address] Apr, [facility] [address] [id number] [address] [place] [address], [place] [address] Apr, [facility] [address] [id number] [address] [place] [address], [place] [address] Apr, [facility] [address] [id number] [address] [place] [address], [place] [address] Apr, [facility] [address] [id number] [address] [place] [address], [place] [address] Mar, [facility] [address] [id number] [address] [place] [address], [place] [address] Mar, [facility] [address] [id number] [address] [place] [address], [place] [address] Mar, [facility] [address] [id number] [address] [place] [address], [place] [address] Mar, [facility] [address] [id number] [address] [place] [address], [place] [address] Mar, [facility] [address] [id number] [address] [place] [address], [place] [address] Mar, [facility] [address] [id number] [address] [place] [address], [place] [address] Jan, [facility] [address] [id number] [address] [place] [address], [place] [address] Jan, [facility] [address] [id number] [address] [place] [address], [place] [address] Jan, [facility] [address] [id number] [address] [place] [address], [place] [address] Jan, [facility] [address] [id number] [address] [place] [address], [place] [address] Dec, [facility] [address] [id number] [address] [place] [address], [place] [address] Dec, [facility] [address] [id number] [address] [place] [address], [place] [address] Dec, [facility] [address] [id number] [address] [place] [address], [place] [address] Dec, [facility] [address] [id number] [address] [place] [address], [place] [address] Dec, [facility] [address] [id number] [address] [place] [address], [place] [address] Dec, [facility] [address] [id number] [address] [place] [address], [place] [address] Dec, [facility] [address] [id number] [address] [place] [address], [place] [address] Dec, [facility] [address] [id number] [address] [place] [address], [place] [address] Dec, [facility] [address] [id number] [address] [place] [address], [place] [address] Dec, [facility] [address] [id number] [address] [place] [address], [place] [address] Dec, [facility] [address] [id number] [address] [place] [address], [place] [address] Dec, [facility] [address] [id number] [address] [place] [address], [place] [address] October, [facility] [address] [id number] [address] [place] [address], [place] [address] October, [facility] [address] [id number] [address] [place] [address], [place] [address] October, [facility] [address] [id number] [address] [place] [address], [place] [address] October, [facility] [address] [id number] [address] [place] [address], [place] [address] October, [facility] [address] [id number] [address] [place] [address], [place] [address] October, [facility] [address] [id number] [address] [place] [address], [place] [address] Oct, [facility] [address] [address] [id number] [address] [place] [address], [place] [address] Oct, [facility] [address] [id number] [address] [place] [address], [place] [address] Oct, [facility] [address] [id number] [address] [place] [address], [place] [address] Oct, [facility] [address] [id number] [address] [place] [address], [place] [address] Oct, [facility] [address] [id number] [address] [place] [address], [place] [address] Oct, [facility] [address] [id number] [address] [place] [address], [place] [address] Oct, [facility] [address] [id number] [address] [place] [address], [place] [address] Oct, [facility] [address] [id number] [address] [place] [address], [place] [address] Oct, [facility] [address] [id number] [address] [place] [address], [place] [address] Oct, [facility] [address] [id number] [address] [place] [address], [place] [address] Oct, [facility] [address] [id number] [address] [place] [address], [place] [address] Oct, [facility] [address] [id number] [facility] [place] [address] 15 Aug, 2013 [facility] [address] [id number] [address] [place] [address], [place] [address] 15 Aug, 2013 [facility] [address] [id number] [facility] [place] [address] 11 Aug, 2013 [facility] [address] [id number] [address] [place] [address], [place] [address] Aug, [facility] [address] [id number] [address] [place] [address], [place] [address] 05 Aug, 2013 [facility] [address] [id number] [address] [place] [address], [place] [address] 05 Aug, 2013 [facility] [address] [id number] [address] [place] [address], [place] [address] 04 Aug, 2013 [facility] [address] [id number] [address] [place] [address], [place] [address] Aug, [facility] [address] [id number] [address] [place] [address], [place] [address] Aug, [facility] [address] [id number] [address] [place] [address], [place] [address] 24 Aug, 2013 [facility] [address] [id number] [address] [place] [address], [place] [address] 24 Aug, 2013 [facility] [address] [id number] [address] [place] [address], [place] [address] Aug, [facility] [address] [id number] [address] [place] [address], [place] [address] Aug, [facility] [address] [id number] [address] [place] [address], [place] [address] 20 Aug, 2013 [facility] [address] [id number] [address] [place] [address], [place] [address] 14 Aug, 2013 [facility] [address] [id number] [address] [place] [address], [place] [address] 14 Aug, 2013 [facility] [address] [id number] [address] [place] [address], [place] [address] 14 Aug, 2013 [facility] [address] [id number] [address] [place] [address], [place] [address] 14 Aug, 2013 [facility] [address] [id number] [address] [place] [address], [place] [address] 07 Aug, 2013 [facility] [address] [id number] [address] [place] [address], [place] [address] 07 Aug, 2013 [facility] [address] [id number] [address] [place] [address], [place] [address] 06 Aug, 2013 [facility] [address] [id number] [address] [place] [address], [place] [address] 06 Aug, 2013 [facility] [address] [id number] [address] [place] [address], [place] [address] 04 Aug, 2013 [facility] [address] [id number] [address] [place] [address], [place] [address] 04 Aug, 2013 [facility] [address] [id number] [address] [place] [address], [place] [address] Aug, [facility] [address] [id number] [address] [place] [address], [place] [address] Jul, [facility] [address] [id number] [address] [place] [address], [place] [address] Jul, [facility] [address] [id number] [address] [place] [address], [place] [address] Jul, [facility] [address] [id number] [address] [place] [address], [place] [address] Jul, [facility] [address] [id number] [address] [place] [address], [place] [address] Jul, [facility] [address] [id number] [address] [place] [address], [place] [address] Jul, [facility] [address] [id number] [address] [place] [address], [place] [address] Jul, [facility] [address] [id number] [address] [place] [address], [place] [address] Jul, [facility] [address] [id number] [address] [place] [address], [place] [address] Jul, [facility] [address] [id number] [address] [place] [address], [place] [address] Jul, [facility] [address] [id number] [address] [place] [address], [place] [address] Jul, [facility] [address] [id number] [address] [place] [address], [place] [address] Jul, [facility] [address] [id number] [address] [place] [address], [place] [address] Jul, [facility] [address] [id number] [address] [place] [address], [place] [address] Jul, [facility] [address] [id number] [address] [place] [address], [place] [address] Jul, [facility] [address] [id number] [address] [place] [address], [place] [address] Jul, [facility] [address] [id number] [address] [place] [address], [place] [address] Jul, [facility] [address] [id number] [address] [place] [address], [place] [address] Jul, [facility] [address] [id number] [address] [place] [address], [place] [address] Jul, [facility] [address] [id number] [address] [place] [address], [place] [address] Jul, [facility] [address] [id number] [address] [place] [address], [place] [address] Jun, [facility] [address] [id number] [address] [place] [address], [place] [address] 31 Jun, 2013 [facility] [address] [id number] [address] [place] [address], [place] [address] 30 Jun, 2013 [facility] [address] [id number] [address] [place] [address], [place] [address] Jun, [facility] [address] [id number] [address] [place] [address], [place] [address] Jun, [facility] [address] [id number] [address] [place] [address], [place] [address] Jun, [facility] [address] [id number] [address] [place] [address], [place] [address] Jun, [facility] [address] [id number] [address] [place] [address], [place] [address] Jun, [facility] [address] [id number] [address] [place] [address], [place] [address] Jun, [facility] [address] [id number] [address] [place] [address], [place] [address] Jun, [facility] [address] [id number] [address] [place] [address], [place] [address] Jun, [facility] [address] [id number] [address] [place] [address], [place] [address] Jun, [facility] [address] [id number] [address] [place] [address], [place] [address] Jun, [facility] [address] [id number] [address] [place] [address], [place] [address] Jun, [facility] [address] [id number] [address] [place] [address], [place] [address] Jun, [facility] [address] [id number] [address] [place] [address], [place] [address] Jun, [facility] [address] [id number] [address] [place] [address], [place] [address] Jun, [facility] [address] [id number] [address] [place] [address], [place] [address] 17 Jun, 2013 [facility] [address] [id number] [address] [place] [address], [place] [address] 17 Jun, 2013 [facility] [address] [id number] [address] [place] [address], [place] [address] Jun, [facility] [address] [id number] [address] [place] [address], [place] [address] Jun, [facility] [address] [id number] [address] [place] [address], [place] [address] Jun, [facility] [address] [id number] [address] [place] [address], [place] [address] Jun, [facility] [address] [id number] [address] [place] [address], [place] [address] Jun, [facility] [address] [id number] [address] [place] [address], [place] [address] Jun, [facility] [address] [id number] [address] [place] [address], [place] [address] Jun, [facility] [address] [id number] [address] [place] [address], [place] [address] Jun, [facility] [address] [id number] [address] [place] [address], [place] [address] May, [facility] [address] [id number] [address] [place] [address], [place] [address] May, [facility] [address] [id number] [address] [place] [address], [place] [address] May, [facility] [address] [id number] [address] [place] [address], [place] [address] May, [facility] [address] [id number] [address] [place] [address], [place] [address] May, [facility] [address] [id number] [address] [place] [address], [place] [address] May, [facility] [address] [id number] [address] [place] [address], [place] [address] 30 Apr, 2013 [facility] [address] [id number] [address] [place] [address], [place] [address] 30 Apr, 2013 [facility] [address] [id number] [address] [place] [address], [place] [address] Apr, [facility] [address] [id number] [address] [place] [address], [place] [address] 30 Apr, 2013 [facility] [address] [id number] [address] [place] [address], [place] [address] Apr, [facility] [address] [id number] [address] [place] [address], [place] [address] Apr, [facility] [address] [id number] [address] [place] [address], [place] [address] Apr, [facility] [address] [id number] [address] [place] [address], [place] [address] Apr, [facility] [address] [id number] [address] [place] [address], [place] [address] 26 Mar, 2013 [facility] [address] [id number] [address] [place] [address] 24 Sep, 2012 [facility] [address] [id number] [address] [place] [address] 17 Sep, 2012 [facility] [address] [id number] [address] [place] [address] 17 Sep, 2012 [facility] [address] [id number] [address] [place] [address], [place] [address] 11 Sep, 2012 [facility] [address] [id number] [address] [place] [address] 10 Sep, 2012 [facility] [address] [id number] [address] [place] [address] 05 Sep, 2012 [facility] [address] [id number] [address] [place] [address], [place] [address] 04 Mar, 2013 [facility] [address] [id number] [address] [place] [address], [place] [address] Jan, [facility] [address] [id number] [address] [place] [address], [place] [address] Jan, [facility] [address] [id number] [address] [place] [address], [place] [address] Jan, [facility] [address] [id number] [address] [place] [address], [place] [address] Jan, [facility] [address] [id number] [address] [place] [address], [place] [address] Jan, [facility] [address] [id number] [address] [place] [address], [place] [address] Jan, [facility] [address] [id number] [address] [place] [address], [place] [address] Dec, [facility] [address] [id number] [address] [place] [address], [place] [address] 24 Dec, 2012 [facility] [address] [id number] [address] [place] [address], [place] [address] Dec, [facility] [address] [id number] [address] [place] [address], [place] [address] Dec, [facility] [address] [id number] [address] [place] [address], [place] [address] 18 Dec, 2012 [facility] [address] [id number] [address] [place] [address], [place] [address] 17 Dec, 2012 [facility] [address] [id number] [address] [place] [address], [place] [address] 16 Dec, 2012 [facility] [address] [id number] [address] [place] [address], [place] [address] 16 Dec, 2012 [facility] [address] [id number] [address] [place] [address], [place] [address] 15 Dec, 2012 [facility] [address] [id number] [address] [place] [address], [place] [address] Dec, [facility] [address] [id number] [address] [place] [address], [place] [address] Dec, [facility] [address] [id number] [address] [place] [address], [place] [address] Dec, [facility] [address] [id number] [address] [place] [address], [place] [address] Dec, [facility] [address] [id number] [address] [place] [address], [place] [address] Dec, [facility] [address] [id number] [address] [place] [address], [place] [address] Dec, [facility] [address] [id number] [address] [place] [address], [place] [address] Dec, [facility] [address] [id number] [address] [place] [address], [place] [address] October, [facility] [address] [id number] [address] [place] [address], [place] [address] October, [facility] [address] [id number] [address] [place] [address], [place] [address] October, [facility] [address] [id number] [address] [place] [address], [place] [address] October, [facility] [address] [id number] [address] [place] [address], [place] [address] October, [facility] [address] [id number] [address] [place] [address], [place] [address] October, [facility] [address] [id number] [address] [place] [address], [place] [address] October, [facility] [address] [id number] [address] [place] [address], [place] [address] Oct, [facility] [address] [id number] [address] [place] [address], [place] [address] 26 Oct, 2012 [facility] [address] [id number] [address] [place] [address], [place] [address] 24 Oct, 2012 [facility] [address] [id number] [address] [place] [address], [place] [address] 23 Oct, 2012 [facility] [address] [id number] [address] [place] [address], [place] [address] Oct, [facility] [address] [id number] [address] [place] [address], [place] [address] 18 Oct, 2012 [facility] [address] [id number] [address] [place] [address], [place] [address] 17 Oct, 2012 [facility] [address] [id number] [address] [place] [address], [place] [address] 15 Oct, 2012 [facility] [address] [id number] [address] [place] [address], [place] [address] Oct, [facility] [address] [id number] [address] [place] [address], [place] [address] Oct, [facility] [address] [id number] [address] [place] [address], [place] [address] Oct, [facility] [address] [id number] [address] [place] [address], [place] [address] Oct, [facility] [address] [id number] [address] [place] [address], [place] [address] Aug, [facility] [address] [id number] [address] [place] [address], [place] [address] Aug, [facility] [address] [id number] [address] [place] [address], [place] [address] Aug, [facility] [address] [id number] [address] [place] [address], [place] [address] 06 Aug, 2012 [facility] [address] [id number] [address] [place] [address], [place] [address] 05 Aug, 2012 [facility] [address] [id number] [address] [place] [address], [place] [address] 05 Aug, 2012 [facility] [address] [id number] [address] [place] [address], [place] [address] 20 Aug, 2012 [facility] [address] [id number] [address] [place] [address], [place] [address] 14 Aug, 2012 [facility] [address] [id number] [address] [place] [address], [place] [address] 12 Aug, 2012 [facility] [address] [id number] [address] [place] [address], [place] [address] 11 Aug, 2012 [facility] [address] [id number] [address] [place] [address], [place] [address] 29 Jul, 2012 [facility] [address] [id number] [address] [place] [address], [place] [address] 15 Jul, 2012 [facility] [address] [id number] [address] [place] [address], [place] [address] 08 Jul, 2012 [facility] [address] [id number] [address] [place] [address], [place] [address] 20 Jun, 2012 [facility] [address] [id number] [address] [place] [address], [place] [address] 18 Jun, 2012 [facility] [address] [id number] [address] [place] [address], [place] [address] 18 Jun, 2012 [facility] [address] [id number] [address] [place] [address], [place] [address] 18 Jun, 2012 [facility] [address] [id number] [address] [place] [address], [place] [address] 18 Jun, 2012 [facility] [address] [id number] [address] [place] [address], [place] [address] 14 Jun, 2012 [facility] [address] [id number] [address] [place] [address], [place] [address] 14 Jun, 2012 [facility] [address] [id number] [address] [place] [address], [place] [address] 13 Jun, 2012 [facility] [address] [id number] [address] [place] [address], [place] [address] 13 Jun, 2012 [facility] [address] [id number] [address] [place] [address], [place] [address] Jun, [facility] [address] [id number] [address] [place] [address], [place] [address] Jun, [facility] [address] [id number] [address] [place] [address], [place] [address] Jun, [facility] [address] [id number] [address] [place] [address], [place] [address] Jun, [facility] [address] [id number] [address] [place] [address], [place] [address] 07 Jun, 2012 [facility] [address] [id number] [address] [place] [address], [place] [address] Jun, [facility] [address] [id number] [address] [place] [address], [place] [address] Jun, [facility] [address] [id number] [address] [place] [address], [place] [address] Jun, [facility] [address] [id number] [address] [place] [address], [place] [address] Jun, [facility] [address] [id number] [address] [place] [address], [place] [address] Jun, [facility] [address] [id number] [address] [place] [address], [place] [address] 05 Jun, 2012 [facility] [address] [id number] [address] [place] [address], [place] [address] Jun, [facility] [address] [id number] [address] [place] [address], [place] [address] Jun, [facility] [address] [id number] [address] [place] [address], [place] [address] Jun, [facility] [address] [id number] [address] [place] [address], [place] [address] May, [facility] [address] [id number] [address] [place] [address], [place] [address] May, [facility] [address] [id number] [address] [place] [address], [place] [address] May, [facility] [address] [id number] [address] [place] [address], [place] [address] May, [facility] [address] [id number] [address] [place] [address], [place] [address] May, [facility] [address] [id number] [address] [place] [address], [place] [address] May, [facility] [address] [id number] [address] [place] [address], [place] [address] May, [facility] [address] [id number] [address] [place] [address], [place] [address] May, [facility] [address] [id number] [address] [place] [address], [place] [address] Apr, [facility] [address] [id number] [address] [place] [address], [place] [address] 30 Apr, 2012 [facility] [address] [id number] [address] [place] [address], [place] [address] 29 Apr, 2012 [facility] [address] [id number] [address] [place] [address], [place] [address] Apr, [facility] [address] [id number] [address] [place] [address] 16 Apr, 2012 [facility] [address] [id number] [address] [place] [address], [place] [address] Apr, [facility] [address] [id number] [address] [place] [address], [place] [address] Apr, [facility] [address] [id number] [address] [place] [address] Apr, [facility] [address] [id number] [address] [place] [address], [place] [address] Apr, [facility] [address] [id number] [address] [place] [address], [place] [address] Apr, [facility] [address] [id number] [address] [place] [address], [place] [address] Apr, [facility] [address] [id number] [address] [place] [address], [place] [address] Apr, [facility] [address] [id number] [address] [place] [address], [place] [address] Mar, [facility] [address] [id number] [address] [place] [address], [place] [address] 18 Mar, 2012 [facility] [address] [id number] [address] [place] [address], [place] [address] Mar, [facility] [address] [address] [id number] [address] [place] [address], [place] [address] Mar, [facility] [address] [id number] [address] [place] [id number] Mar, [facility] [address] [id number] [address] [place] [address] [id number] Mar, [facility] [address] [id number] [address] [place] [address], [place] [address] Mar, [facility] [address] [id number] [address] [place] [address], [place] [address] Jan, [facility] [address] [id number] [address] [place] [phone] Jan, [facility] [address] [id number] [address] [place] [address] [id number] Jan, [facility] [address] [id number] [address] [place] [address] [id number] Jan, [facility] [address] [id number] [address] [place] [id number] 17 Feb, 2012 [facility] [address] [id number] [facility] [place] [address] Jan, [facility] [address] [id number] [address] [place] [address], [place] [address] 16 Feb, 2012 [facility] [address] [id number] [address] [place] [address], [place] [address] 14 Feb, 2012 [facility] [address] [id number] [address] [place] [address], [place] [address] Jan, [facility] [address] [id number] [address] [place] [address], [place] [address] Jan, [facility] [address] [id number] [address] [place] [address], [place] [address] Jan, [facility] [address] [id number] [address] [place] [address], [place] [address] Dec, [facility] [address] [id number] [address] [place] [address], [place] [address] Dec, [facility] [address] [id number] [address] [place] [address], [place] [address] Dec, [facility] [address] [id number] [address] [place] [address], [place] [address] Dec, [facility] [address] [id number] [address] [place] [address], [place] [address] Dec, [facility] [address] [id number] [address] [place] [address], [place] [address] Dec, [facility] [address] [id number] [address] [place] [address], [place] [address] 18 Jan, 2012 [facility] [address] [id number] [address] [place] [address], [place] [address] 17 Jan, 2012 [facility] [address] [id number] [address] [place] [address], [place] [address] 16 Jan, 2012 [facility] [address] [id number] [address] [place] [address], [place] [address] 13 Jan, 2012 [facility] [address] [id number] [address] [place] [address], [place] [address] 13 Jan, 2012 [facility] [address] [id number] [address] [place] [address], [place] [address] 02 Jan, 2012 [facility] [address] [id number] [address] [place] [address], [place] [address] Dec, [facility] [address] [id number] [address] [place] [address], [place] [address] Dec, [facility] [address] [id number] [address] [place] [address], [place] [address] 25 Dec, 2011 [facility] [address] [id number] [address] [place] [address], [place] [address] 18 Dec, 2011 [facility] [address] [id number] [address] [place] [address], [place] [address] 15 Dec, 2011 [facility] [address] [id number] [address] [place] [address], [place] [address] Dec, [facility] [address] [id number] [address] [place] [address], [place] [address] 05 Dec, 2011 [facility] [address] [id number] [address] [place] [address], [place] [address] October, [facility] [address] [id number] [address] [place] [address], [place] [address] October, [facility] [address] [id number] [address] [place] [address], [place] [address] October, [facility] [address] [id number] [address] [place] [address], [place] [address] October, [facility] [address] [id number] [address] [place] [address], [place] [address] October, [facility] [address] [id number] [address] [place] [address], [place] [address] October, [facility] [address] [id number] [address] [place] [address], [place] [address] 30 Oct, 2011 [facility] [address] [id number] [address] [place] [address], [place] [address] 24 Oct, 2011 [facility] [address] [id number] [address] [place] [address], [place] [address] Oct, [facility] [address] [id number] [address] [place] [address], [place] [address] Oct, [facility] [address] [id number] [address] [place] [address], [place] [address] Oct, [facility] [address] [id number] [address] [place] [address], [place] [address] Oct, [facility] [address] [id number] [address] [place] [address], [place] [address] Oct, [facility] [address] [id number] [address] [place] [address], [place] [address] Aug, [facility] [address] [id number] [address] [place] [address], [place] [address] 29 Sep, 2011 [facility] [address] [id number] [address] [place] [address], [place] [address] Aug, [facility] [address] [id number] [address] [place] [address], [place] [address] Aug, [facility] [address] [id number] [address] [place] [address], [place] [address] Aug, [facility] [address] [id number] [address] [place] [address], [place] [address] Aug, [facility] [address] [id number] [address] [place] [address], [place] [address] 27 Aug, 2011 [facility] [address] [id number] [address] [place] [address], [place] [address] Aug, [facility] [address] [id number] [address] [place] [id number] 08 Aug, 2011 [facility] [address] [id number] [address] [place] [address], [place] [address] Jul, [facility] [address] [id number] [address] [place] [address], [place] [address] Jul, [facility] [address] [id number] [address] [place] [address], [place] [address] Jul, [facility] [address] [id number] [address] [place] [address], [place] [address] Jul, [facility] [address] [id number] [address] [place] [address], [place] [address] Jun, [facility] [address] [id number] [address] [place] [address], [place] [address] Jun, [facility] [address] [id number] [address] [place] [address], [place] [address] May, [facility] [address] [id number] [address] [place] [address], [place] [address] May, [facility] [address] [id number] [address] [place] [address], [place] [address] May, [facility] [address] [id number] [address] [place] [address], [place] [address] May, [facility] [address] [id number] [address] [place] [address], [place] [address] May, [facility] [address] [id number] [address] [place] [address], [place] [address] Apr, [facility] [address] [id number] [address] [place] [address], [place] [address] Apr, [facility] [address] [id number] [address] [place] [address], [place] [address] 10 Apr, 2011 [facility] [address] [id number] [address] [place] [address], [place] [address] 15 Jan, 2011 [facility] [address] [id number] [address] [place] [address] Dec, [facility] [address] [facility] [id number] [address] [place] [id number] October, [facility] [address] [facility] [id number] [address] [place] [id number] Jun, [facility] [address] [facility] [id number] [address] [place] [address] Apr, [facility] [address] [facility] [id number] [address] [place] [id number] Apr, [facility] [address] [facility] [id number] [address] [place] [id number] Apr, [facility] [address] [facility] [id number] [address] [place] [id number] Jun, IMMUNIZATIONS No Known Immunizations SOCIAL HISTORY [...]
--- OUTSIDE RECORDS SUMMARY | 2020-01-25 13:34 | XMS REPORT ---
Author Author Ana Iraheta Organization 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 Name Role Phone MELISA Iraheta Unavailable PROBLEMS Type Condition ICD9-CM Code QJC20-UX Code Onset Dates Condition S tatus SNOMED Code Problem Chronic hepatitis C without hepatic coma B18.2 Active 297650954 Problem Cannabis abuse F12.10 Active 00608 009 Problem Bipolar 1 disorder F31.9 Active 3 51740610 Problem Attention deficit hyperactivity disorder (ADHD), combi luciano type F90.2 Active 99084005 Problem Attention deficit R41.840 Active 76 891214 Problem Hot flashes due to menopause N95.1 A ctive 345670710 Problem H/O laminectomy Z98.89 Active 1616 14035 Problem Other chronic pain G89.29 Active 8 7336841 Problem Anxiety disorder, unspecified type F41.9 Active 256286641 Problem Bipolar disorder, in partial remission, most rec ent episode hypomanic F31.71 Active [id number] ALLERGIES No Information ENCOUNTERS Encounter Location Date Diagnosis [place] [address] [facility] [id number] [address] [place] [address] Aug, [facility] [address] [facility] [id number] [address] [place] [address] Jul, [facility] [address] [facility] [id number] [address] [place] [address] Jul, [facility] [address] [facility] [id number] [address] [place] [address] Apr, [facility] [address] [facility] [id number] [address] [place] [address] Mar, Hot flashes due to menopause N95.1 ; Anxiety disorder, unspecified type F41.9 ; Low back pain M54.5 and Encounter for immunization Z23 [facility] [address] [id number] [address] [place] [address] Dec, Other chronic pain G89.29 an d Low back pain M54.5 [facility] [address] [id number] [address] [place] [address] October, [facility] [address] [id number] [address] [place] [address] October, [facility] [address] [id number] [address] [place] [address] October, [facility] [address] [id number] [address] [place] [address] October, Other chronic pain G89.29 an d Chronic hepatitis C without hepatic coma B18.2 [facility] [address] [id number] [address] [place] [address] Aug, Bipolar disorder, in partial remission, most recent episode hypomanic F31.71 ; Attention deficit hyperactivity disorder (ADHD), combined type F90.2 and Anxiety disorder, unspecified type F41.9 [facility] [address] [id number] [address] [place] [address] Aug, [facility] [address] [id number] [address] [place] [address] Aug, Bipolar disorder, in partial remission, most recent episode hypomanic F31.71 [facility] [address] [id number] [address] [place] [address] Aug, [facility] [address] [id number] [address] [place] [address] Aug, Bipolar disorder, in partial remission, most recent episode hypomanic F31.71 [facility] [address] [id number] [address] [place] [address] Aug, Bipolar disorder, in partial remission, most recent episode hypomanic F31.71 ; Attention deficit hyperactivity disorder (ADHD), combined type F90.2 and Anxiety disorder, unspecified type F41.9 [facility] [address] [id number] [address] [place] [address] Aug, Low back pain M54.5 and Pain in left wrist M25.532 [facility] [address] [id number] [address] [place] [address] Aug, [facility] [address] [id number] [address] [place] [address] Jun, [facility] [address] [id number] [address] [place] [address] Apr, Bipolar disorder, in partial remission, most recent episode hypomanic F31.71 [facility] [address] [id number] [address] [place] [address] Apr, 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 [address] [id number] [address] [place] [address] Apr, Bipolar disorder, in partial remission, most recent episode hypomanic F31.71 [facility] [address] [id number] [address] [place] [address] Apr, Bipolar disorder, in partial remission, most recent episode hypomanic F31.71 [facility] [address] [id number] [address] [place] [address] Mar, [facility] [address] [id number] [address] [place] [address] Mar, Bipolar disorder, in partial remission, most recent episode hypomanic F31.71 ; Encounter for immunization Z23 and Low back pain M54.5 [facility] [address] [facility] [id number] [address] [place] [address] Mar, Bipolar disorder, in partial remission, most recent episode hypomanic F31.71 [facility] [address] [facility] [id number] [address] [place] [address] Mar, Bipolar disorder, in partial remission, most recent episode hypomanic F31.71 [facility] [address] [facility] [id number] [address] [place] [address] Jan, Bipolar disorder, in partial remission, most recent episode hypomanic F31.71 [facility] [address] [facility] [id number] [address] [place] [address] Jan, Bipolar disorder, in partial remission, most recent episode hypomanic F31.71 [facility] [address] [facility] [id number] [address] [place] [address] Dec, Bipolar disorder, in partial remission, most recent episode hypomanic F31.71 [facility] [address] [facility] [id number] [address] [place] [address] Dec, Bipolar disorder, in partial remission, most recent episode hypomanic F31.71 ; Attention deficit hyperactivity disorder (ADHD), combined type F90.2 ; Anxiety disorder, unspecified type F41.9 and Other half-way (current) drug therapy Z79.899 [facility] [address] [facility] [id number] [address] [place] [address] Dec, Bipolar disorder, in partial remission, most recent episode hypomanic F31.71 [facility] [address] [facility] [id number] [address] [place] [address] Dec, Bipolar disorder, in partial remission, most recent episode hypomanic F31.71 [facility] [address] [facility] [id number] [address] [place] [address] October, Bipolar disorder, in partial remission, most recent episode hypomanic F31.71 [facility] [address] [facility] [id number] [address] [place] [address] October, [facility] [address] [facility] [id number] [address] [place] [address] October, [facility] [address] [facility] [id number] [address] [place] [address] Oct, Bipolar disorder, in partial remission, most recent episode hypomanic F31.71 ; Attention deficit hyperactivity disorder (ADHD), combined type F90.2 ; Anxiety disorder, unspecified type F41.9 and Encounter for drug screening Z02.83 [facility] [address] [facility] [id number] [address] [place] [address] Oct, Bipolar disorder, in partial remission, most recent episode hypomanic F31.71 [facility] [address] [facility] [id number] [address] [place] [id number] Oct, Bipolar disorder, in partial remission, most recent episode hypomanic F31.71 [facility] [address] [facility] [id number] [address] [place] [address] Aug, Bipolar disorder, in partial remission, most recent episode hypomanic F31.71 [facility] [address] [facility] [id number] [address] [place] [address] Aug, Bipolar disorder, in partial remission, most recent episode hypomanic F31.71 [facility] [address] [facility] [id number] [address] [place] [id number] Aug, Bipolar disorder, in partial remission, most recent episode hypomanic F31.71 [facility] [address] [facility] [id number] [address] [place] [address] Jul, Bipolar disorder, in partial remission, most recent episode hypomanic F31.71 ; Attention deficit hyperactivity disorder (ADHD), combined type F90.2 and Anxiety disorder, unspecified type F41.9 [facility] [address] [facility] [id number] [address] [place] [address] Jul, Bipolar disorder, in partial remission, most recent episode hypomanic F31.71 [facility] [address] [facility] [id number] [address] [place] [address] Jun, Bipolar disorder, in partial remission, most recent episode hypomanic F31.71 [facility] [address] [id number] [address] [place] [address] May, Bipolar disorder, in partial remission, most recent episode hypomanic F31.71 [facility] [address] [facility] [id number] [address] [place] [address] May, Bipolar disorder, in partial remission, most recent episode hypomanic F31.71 [facility] [address] [id number] [address] [place] [address] Apr, [facility] [address] [facility] [id number] [address] [place] [address] Apr, Bipolar disorder, in partial remission, most recent episode hypomanic F31.71 ; Attention deficit hyperactivity disorder (ADHD), combined type F90.2 ; Anxiety disorder, unspecified type F41.9 [address] Cann[address] F12.10 [facility] [address] [facility] [id number] [address] [place] [address] Apr, Attention deficit hyperactiv ity disorder (ADHD), combined type F90.2 [facility] [address] [facility] [id number] [address] [place] [address] Mar, Attention deficit hyperactiv ity disorder (ADHD), combined type F90.2 [facility] [address] [facility] [id number] [address] [place] [address] 14 Mar, 2017 Anxiety disorder, unspecifie d type F41.9 [facility] [address] [id number] [address] [place] [address] Jan, Attention deficit hyperactiv ity disorder (ADHD), combined type F90.2 [facility] [address] [facility] [id number] [address] [place] [address] Jan, Anxiety disorder, unspecifie d type F41.9 [facility] [address] [facility] [id number] [address] [place] [phone] 03 Aug, 2017 Other chronic pain G89.29 ; Chronic hepatitis C without hepatic coma B18.2 and Bipolar [address] [facility] [address] [id number] [address] [place] [phone] Dec, Attention deficit hyperactiv ity disorder (ADHD), combined type F90.2 [facility] [address] [facility] [id number] [address] [place] [address] Dec, Bipolar disorder, in partial remission, most recent episode hypomanic F31.71 ; Attention deficit hyperactivity disorder (ADHD), combined type F90.2 and Anxiety disorder, unspecified type F41.9 [facility] [address] [id number] [address] [place] [address] Dec, Bipolar disorder, in partial remission, most recent episode hypomanic F31.71 ; Attention deficit hyperactivity disorder (ADHD), combined type F90.2 and Anxiety disorder, unspecified type F41.9 [facility] [address] [facility] [id number] [address] [place] [address] Dec, Bipolar 1 disorder F31.9 and Attention deficit R41.840 [facility] [address] [facility] [id number] [address] [place] [address] Oct, Other chronic pain G89.29 ; Alopecia L65.9 and Screening, lipid Z13.220 [facility] [address] [facility] [id number] [address] [place] [address] Oct, [facility] [address] [facility] [id number] [address] [place] [address] Aug, [facility] [address] [id number] [address] [place] [address] Aug, Eustachian tube dysfunction, right H69.81 ; Vertigo R42 and Other chronic pain G89.29 [facility] [address] [id number] [address] [place] [address] Aug, [facility] [address] [facility] [id number] [address] [place] [address] Jun, [facility] [address] [facility] [id number] [address] [place] [address] Jun, Low back pain M54.5 and Othe r chronic pain G89.29 [facility] [address] [facility] [id number] [address] [place] [address] Jun, [facility] [address] [facility] [id number] [address] [place] [address] May, [facility] [address] [facility] [id number] [address] [place] [address] Jan, [facility] [address] [facility] [id number] [place] [address] Dec, [facility] [address] [facility] [id number] [address] [place] [address] Dec, [facility] [address] [place] [id number] [place] [address] Jun, [facility] [address] [facility] [id number] [address] [place] [address] Apr, Eustachian tube dysfunction, unspecified laterality H69.80 ; Hot flashes N95.1 and Encounter for immunization Z23 [facility] [address] [facility] [id number] [address] [place] [address] Jan, [facility] [address] [place] [id number] [address] [place] [address] Jan, [facility] [address] [facility] [id number] [address] [place] [address] Jan, [facility] [address] [facility] [id number] [place] [address] Jan, [facility] [address] [place] [id number] [address] [place] [address] Jan, Encounter to establish care V65.8 ; Bipolar 1 disorder 296.7 ; Abdominal pain 789.00 ; Constipation 564.00 ; Hard of hearing 389.9 and Drug abuse 305.90 [facility] [address] [id number] [address] [place] [address], [place] [address] Dec, [facility] [address] [id number] [address] [place] [address] October, [facility] [address] [id number] [address] [place] [address] October, [facility] [address] [id number] [address] [place] [address] 30 Oct, 2014 [facility] [address] [id number] [address] [place] [address], [place] [address] Oct, [facility] [address] [id number] [address] [place] [address] Oct, [facility] [address] [id number] [address] [place] [address] Aug, [facility] [address] [id number] [address] [place] [address] Aug, [facility] [address] [id number] [address] [place] [address] Aug, [facility] [address] [id number] [address] [place] [address] Aug, [facility] [address] [id number] [address] [place] [address] Aug, [facility] [address] [id number] [address] [place] [address] Aug, [facility] [address] [id number] [address] [place] [address] Aug, [facility] [address] [id number] [address] [place] [address] Aug, [facility] [address] [id number] [address] [place] [address] Aug, [facility] [address] [id number] [address] [place] [address], [place] [address] Aug, 2014 [facility] [address] [id number] [address] [place] [address], [place] [address] Aug, 2014 [facility] [address] [id number] [address] [place] [address], [place] [address] Aug, 2014 [facility] [address] [id number] [address] [place] [address], [place] [address] Aug, 2014 [facility] [address] [id number] [address] [place] [address], [place] [address] Aug, 2014 [facility] [address] [id number] [address] [place] [address], [place] [address] Aug, [facility] [address] [id number] [address] [place] [address], [place] [address] Jul, [facility] [address] [id number] [address] [place] [address], [place] [address] Jul, [facility] [address] [id number] [address] [place] [address], [place] [address] Jul, [facility] [address] [id number] [address] [place] [address], [place] [address] Jul, [facility] [address] [id number] [address] [place] [address], [place] [address] Jul, [facility] [address] [id number] [address] [place] [address], [place] [address] Jul, [facility] [address] [id number] [address] [place] [address], [place] [address] Jul, [facility] [address] [id number] [address] [place] [address], [place] [address] Jul, [facility] [address] [id number] [address] [place] [address], [place] [address] Jun, [facility] [address] [id number] [address] [place] [address], [place] [address] Jun, [facility] [address] [id number] [address] [place] [address], [place] [address] Jun, [facility] [address] [id number] [address] [place] [address], [place] [address] Jun, [facility] [address] [id number] [address] [place] [address], [place] [address] 18 Jun, 2014 [facility] [address] [id number] [address] [place] [address], [place] [address] Jun, [facility] [address] [id number] [address] [place] [address], [place] [address] Jun, [facility] [address] [id number] [address] [place] [address], [place] [address] Jun, [facility] [address] [id number] [address] [place] [address], [place] [address] Jun, [facility] [address] [id number] [address] [place] [address], [place] [address] Jun, [facility] [address] [id number] [address] [place] [address], [place] [address] Jun, [facility] [address] [id number] [address] [place] [address], [place] [address] May, [facility] [address] [id number] [address] [place] [address], [place] [address] May, [facility] [address] [id number] [address] [place] [address], [place] [address] May, [facility] [address] [id number] [address] [place] [address], [place] [address] May, [facility] [address] [id number] [address] [place] [address], [place] [address] May, [facility] [address] [id number] [address] [place] [address], [place] [address] May, [facility] [address] [id number] [address] [place] [address], [place] [address] May, [facility] [address] [id number] [address] [place] [address], [place] [address] Apr, [facility] [address] [id number] [address] [place] [address], [place] [address] Apr, [facility] [address] [id number] [address] [place] [address], [place] [address] Apr, [facility] [address] [id number] [address] [place] [address], [place] [address] Apr, [facility] [address] [id number] [address] [place] [address], [place] [address] Apr, [facility] [address] [id number] [address] [place] [address], [place] [address] Apr, [facility] [address] [id number] [address] [place] [address], [place] [address] Mar, [facility] [address] [id number] [address] [place] [address], [place] [address] Mar, [facility] [address] [id number] [address] [place] [address], [place] [address] Mar, [facility] [address] [id number] [address] [place] [address], [place] [address] Mar, [facility] [address] [id number] [address] [place] [address], [place] [address] Mar, [facility] [address] [id number] [address] [place] [address], [place] [address] Mar, [facility] [address] [id number] [address] [place] [address], [place] [address] Jan, [facility] [address] [id number] [address] [place] [address], [place] [address] Jan, [facility] [address] [id number] [address] [place] [address], [place] [address] Jan, [facility] [address] [id number] [address] [place] [address], [place] [address] Jan, [facility] [address] [id number] [address] [place] [address], [place] [address] Dec, [facility] [address] [id number] [address] [place] [address], [place] [address] Dec, [facility] [address] [id number] [address] [place] [address], [place] [address] Dec, [facility] [address] [id number] [address] [place] [address], [place] [address] Dec, [facility] [address] [id number] [address] [place] [address], [place] [address] Dec, [facility] [address] [id number] [address] [place] [address], [place] [address] Dec, [facility] [address] [id number] [address] [place] [address], [place] [address] Dec, [facility] [address] [id number] [address] [place] [address], [place] [address] Dec, [facility] [address] [id number] [address] [place] [address], [place] [address] Dec, [facility] [address] [id number] [address] [place] [address], [place] [address] Dec, [facility] [address] [id number] [address] [place] [address], [place] [address] Dec, [facility] [address] [id number] [address] [place] [address], [place] [address] Dec, [facility] [address] [id number] [address] [place] [address], [place] [address] October, [facility] [address] [id number] [address] [place] [address], [place] [address] October, [facility] [address] [id number] [address] [place] [address], [place] [address] October, [facility] [address] [id number] [address] [place] [address], [place] [address] October, [facility] [address] [id number] [address] [place] [address], [place] [address] October, [facility] [address] [id number] [address] [place] [address], [place] [address] October, [facility] [address] [id number] [address] [place] [address], [place] [address] Oct, [facility] [address] [id number] [address] [place] [address], [place] [address] Oct, [facility] [address] [id number] [address] [place] [address], [place] [address] Oct, [facility] [address] [id number] [address] [place] [address], [place] [address] Oct, [facility] [address] [id number] [address] [place] [address], [place] [address] Oct, [facility] [address] [id number] [address] [place] [address], [place] [address] Oct, [facility] [address] [id number] [address] [place] [address], [place] [address] Oct, [facility] [address] [id number] [address] [place] [address], [place] [address] Oct, [facility] [address] [id number] [address] [place] [address], [place] [address] Oct, [facility] [address] [id number] [address] [place] [address], [place] [address] Oct, [facility] [address] [id number] [address] [place] [address], [place] [address] Oct, [facility] [address] [id number] [address] [place] [address], [place] [address] Oct, [facility] [address] [id number] [facility] [place] [address] 15 Aug, 2013 [facility] [address] [id number] [address] [place] [address], [place] [address] 15 Aug, 2013 [facility] [address] [id number] [facility] [place] [address] 11 Aug, 2013 [facility] [address] [id number] [address] [place] [address], [place] [address] Aug, [facility] [address] [id number] [address] [place] [address], [place] [address] 05 Aug, 2013 [facility] [address] [id number] [address] [place] [address], [place] [address] 05 Aug, 2013 [facility] [address] [id number] [address] [place] [address], [place] [address] 04 Aug, 2013 [facility] [address] [id number] [address] [place] [address], [place] [address] Aug, [facility] [address] [id number] [address] [place] [address], [place] [address] Aug, [facility] [address] [id number] [address] [place] [address], [place] [address] 24 Aug, 2013 [facility] [address] [id number] [address] [place] [address], [place] [address] 24 Aug, 2013 [facility] [address] [id number] [address] [place] [address], [place] [address] Aug, [facility] [address] [id number] [address] [place] [address], [place] [address] Aug, [facility] [address] [id number] [address] [place] [address], [place] [address] 20 Aug, 2013 [facility] [address] [id number] [address] [place] [address], [place] [address] 14 Aug, 2013 [facility] [address] [id number] [address] [place] [address], [place] [address] 14 Aug, 2013 [facility] [address] [id number] [address] [place] [address], [place] [address] 14 Aug, 2013 [facility] [address] [id number] [address] [place] [address], [place] [address] 14 Aug, 2013 [facility] [address] [id number] [address] [place] [address], [place] [address] 07 Aug, 2013 [facility] [address] [id number] [address] [place] [address], [place] [address] 07 Aug, 2013 [facility] [address] [id number] [address] [place] [address], [place] [address] 06 Aug, 2013 [facility] [address] [id number] [address] [place] [address], [place] [address] 06 Aug, 2013 [facility] [address] [id number] [address] [place] [address], [place] [address] 04 Aug, 2013 [facility] [address] [id number] [address] [place] [address], [place] [address] 04 Aug, 2013 [facility] [address] [id number] [address] [place] [address], [place] [address] Aug, [facility] [address] [id number] [address] [place] [address], [place] [address] Jul, [facility] [address] [id number] [address] [place] [address], [place] [address] Jul, [facility] [address] [id number] [address] [place] [address], [place] [address] Jul, [facility] [address] [id number] [address] [place] [address], [place] [address] Jul, [facility] [address] [id number] [address] [place] [address], [place] [address] Jul, [facility] [address] [id number] [address] [place] [address], [place] [address] Jul, [facility] [address] [id number] [address] [place] [address], [place] [address] Jul, [facility] [address] [id number] [address] [place] [address], [place] [address] Jul, [facility] [address] [id number] [address] [place] [address], [place] [address] Jul, [facility] [address] [id number] [address] [place] [address], [place] [address] Jul, [facility] [address] [id number] [address] [place] [address], [place] [address] Jul, [facility] [address] [id number] [address] [place] [address], [place] [address] Jul, [facility] [address] [id number] [address] [place] [address], [place] [address] Jul, [facility] [address] [id number] [address] [place] [address], [place] [address] Jul, [facility] [address] [id number] [address] [place] [address], [place] [address] Jul, [facility] [address] [id number] [address] [place] [address], [place] [address] Jul, [facility] [address] [id number] [address] [place] [address], [place] [address] Jul, [facility] [address] [id number] [address] [place] [address], [place] [address] Jul, [facility] [address] [id number] [address] [place] [address], [place] [address] Jul, [facility] [address] [id number] [address] [place] [address], [place] [address] Jul, [facility] [address] [id number] [address] [place] [address], [place] [address] Jun, [facility] [address] [id number] [address] [place] [address], [place] [address] 31 Jun, 2013 [facility] [address] [id number] [address] [place] [address], [place] [address] 30 Jun, 2013 [facility] [address] [id number] [address] [place] [address], [place] [address] Jun, [facility] [address] [id number] [address] [place] [address], [place] [address] Jun, [facility] [address] [id number] [address] [place] [address], [place] [address] Jun, [facility] [address] [id number] [address] [place] [address], [place] [address] Jun, [facility] [address] [id number] [address] [place] [address], [place] [address] Jun, [facility] [address] [id number] [address] [place] [address], [place] [address] Jun, [facility] [address] [id number] [address] [place] [address], [place] [address] Jun, [facility] [address] [id number] [address] [place] [address], [place] [address] Jun, [facility] [address] [id number] [address] [place] [address], [place] [address] Jun, [facility] [address] [id number] [address] [place] [address], [place] [address] Jun, [facility] [address] [id number] [address] [place] [address], [place] [address] Jun, [facility] [address] [id number] [address] [place] [address], [place] [address] Jun, [facility] [address] [id number] [address] [place] [address], [place] [address] Jun, [facility] [address] [id number] [address] [place] [address], [place] [address] Jun, [facility] [address] [id number] [address] [place] [address], [place] [address] 17 Jun, 2013 [facility] [address] [id number] [address] [place] [address], [place] [address] 17 Jun, 2013 [facility] [address] [id number] [address] [place] [address], [place] [address] Jun, [facility] [address] [id number] [address] [place] [address], [place] [address] Jun, [facility] [address] [id number] [address] [place] [address], [place] [address] Jun, [facility] [address] [id number] [address] [place] [address], [place] [address] Jun, [facility] [address] [id number] [address] [place] [address], [place] [address] Jun, [facility] [address] [id number] [address] [place] [address], [place] [address] Jun, [facility] [address] [id number] [address] [place] [address], [place] [address] Jun, [facility] [address] [id number] [address] [place] [address], [place] [address] Jun, [facility] [address] [id number] [address] [place] [address], [place] [address] May, [facility] [address] [id number] [address] [place] [address], [place] [address] May, [facility] [address] [id number] [address] [place] [address], [place] [address] May, [facility] [address] [id number] [address] [place] [address], [place] [address] May, [facility] [address] [id number] [address] [place] [address], [place] [address] May, [facility] [address] [id number] [address] [place] [address], [place] [address] May, [facility] [address] [id number] [address] [place] [address], [place] [address] 30 Apr, 2013 [facility] [address] [id number] [address] [place] [address], [place] [address] 30 Apr, 2013 [facility] [address] [id number] [address] [place] [address], [place] [address] Apr, [facility] [address] [id number] [address] [place] [address], [place] [address] 30 Apr, 2013 [facility] [address] [id number] [address] [place] [address], [place] [address] Apr, [facility] [address] [id number] [address] [place] [address], [place] [address] Apr, [facility] [address] [id number] [address] [place] [address], [place] [address] Apr, [facility] [address] [id number] [address] [place] [address], [place] [address] Apr, [facility] [address] [id number] [address] [place] [address], [place] [address] 26 Mar, 2013 [facility] [address] [id number] [address] [place] [address] 24 Sep, 2012 [facility] [address] [id number] [address] [place] [address] 17 Sep, 2012 [facility] [address] [id number] [address] [place] [address] 17 Sep, 2012 [facility] [address] [id number] [address] [place] [address], [place] [address] 11 Sep, 2012 [facility] [address] [id number] [address] [place] [address] 10 Sep, 2012 [facility] [address] [id number] [address] [place] [address] 05 Sep, 2012 [facility] [address] [id number] [address] [place] [address], [place] [address] 04 Mar, 2013 [facility] [address] [id number] [address] [place] [address], [place] [address] Jan, [facility] [address] [id number] [address] [place] [address], [place] [address] Jan, [facility] [address] [id number] [address] [place] [address], [place] [address] Jan, [facility] [address] [id number] [address] [place] [address], [place] [address] Jan, [facility] [address] [id number] [address] [place] [address], [place] [address] Jan, [facility] [address] [id number] [address] [place] [address], [place] [address] Jan, [facility] [address] [id number] [address] [place] [address], [place] [address] Dec, [facility] [address] [id number] [address] [place] [address], [place] [address] 24 Dec, 2012 [facility] [address] [id number] [address] [place] [address], [place] [address] Dec, [facility] [address] [id number] [address] [place] [address], [place] [address] Dec, [facility] [address] [id number] [address] [place] [address], [place] [address] 18 Dec, 2012 [facility] [address] [id number] [address] [place] [address], [place] [address] 17 Dec, 2012 [facility] [address] [id number] [address] [place] [address], [place] [address] 16 Dec, 2012 [facility] [address] [id number] [address] [place] [address], [place] [address] 16 Dec, 2012 [facility] [address] [id number] [address] [place] [address], [place] [address] 15 Dec, 2012 [facility] [address] [id number] [address] [place] [address], [place] [address] Dec, [facility] [address] [id number] [address] [place] [address], [place] [address] Dec, [facility] [address] [id number] [address] [place] [address], [place] [address] Dec, [facility] [address] [id number] [address] [place] [address], [place] [address] Dec, [facility] [address] [id number] [address] [place] [address], [place] [address] Dec, [facility] [address] [id number] [address] [place] [address], [place] [address] Dec, [facility] [address] [id number] [address] [place] [address], [place] [address] Dec, [facility] [address] [id number] [address] [place] [address], [place] [address] October, [facility] [address] [id number] [address] [place] [address], [place] [address] October, [facility] [address] [id number] [address] [place] [address], [place] [address] October, [facility] [address] [id number] [address] [place] [address], [place] [address] October, [facility] [address] [id number] [address] [place] [address], [place] [address] October, [facility] [address] [id number] [address] [place] [address], [place] [address] October, [facility] [address] [id number] [address] [place] [address], [place] [address] October, [facility] [address] [id number] [address] [place] [address], [place] [address] Oct, [facility] [address] [id number] [address] [place] [address], [place] [address] 26 Oct, 2012 [facility] [address] [id number] [address] [place] [address], [place] [address] 24 Oct, 2012 [facility] [address] [id number] [address] [place] [address], [place] [address] 23 Oct, 2012 [facility] [address] [id number] [address] [place] [address], [place] [address] Oct, [facility] [address] [id number] [address] [place] [address], [place] [address] 18 Oct, 2012 [facility] [address] [id number] [address] [place] [address], [place] [address] 17 Oct, 2012 [facility] [address] [id number] [address] [place] [address], [place] [address] 15 Oct, 2012 [facility] [address] [id number] [address] [place] [address], [place] [address] Oct, [facility] [address] [id number] [address] [place] [address], [place] [address] Oct, [facility] [address] [id number] [address] [place] [address], [place] [address] Oct, [facility] [address] [id number] [address] [place] [address], [place] [address] Oct, [facility] [address] [id number] [address] [place] [address], [place] [address] Aug, [facility] [address] [id number] [address] [place] [address], [place] [address] Aug, [facility] [address] [id number] [address] [place] [address], [place] [address] Aug, [facility] [address] [id number] [address] [place] [address], [place] [address] 06 Aug, 2012 [facility] [address] [id number] [address] [place] [address], [place] [address] 05 Aug, 2012 [facility] [address] [id number] [address] [place] [address], [place] [address] 05 Aug, 2012 [facility] [address] [id number] [address] [place] [address], [place] [address] 20 Aug, 2012 [facility] [address] [id number] [address] [place] [address], [place] [address] 14 Aug, 2012 [facility] [address] [id number] [address] [place] [address], [place] [address] 12 Aug, 2012 [facility] [address] [id number] [address] [place] [address], [place] [address] 11 Aug, 2012 [facility] [address] [id number] [address] [place] [address], [place] [address] 29 Jul, 2012 [facility] [address] [id number] [address] [place] [address], [place] [address] 15 Jul, 2012 [facility] [address] [id number] [address] [place] [address], [place] [address] 08 Jul, 2012 [facility] [address] [id number] [address] [place] [address], [place] [address] 20 Jun, 2012 [facility] [address] [id number] [address] [place] [address], [place] [address] 18 Jun, 2012 [facility] [address] [id number] [address] [place] [address], [place] [address] 18 Jun, 2012 [facility] [address] [id number] [address] [place] [address], [place] [address] 18 Jun, 2012 [facility] [address] [id number] [address] [place] [address], [place] [address] 18 Jun, 2012 [facility] [address] [id number] [address] [place] [address], [place] [address] 14 Jun, 2012 [facility] [address] [id number] [address] [place] [address], [place] [address] 14 Jun, 2012 [facility] [address] [id number] [address] [place] [address], [place] [address] 13 Jun, 2012 [facility] [address] [id number] [address] [place] [address], [place] [address] 13 Jun, 2012 [facility] [address] [id number] [address] [place] [address], [place] [address] Jun, [facility] [address] [id number] [address] [place] [address], [place] [address] Jun, [facility] [address] [id number] [address] [place] [address], [place] [address] Jun, [facility] [address] [id number] [address] [place] [address], [place] [address] Jun, [facility] [address] [id number] [address] [place] [address], [place] [address] 07 Jun, 2012 [facility] [address] [id number] [address] [place] [address], [place] [address] Jun, [facility] [address] [id number] [address] [place] [address], [place] [address] Jun, [facility] [address] [id number] [address] [place] [address], [place] [address] Jun, [facility] [address] [id number] [address] [place] [address], [place] [address] Jun, [facility] [address] [id number] [address] [place] [address], [place] [address] Jun, [facility] [address] [id number] [address] [place] [address], [place] [address] 05 Jun, 2012 [facility] [address] [id number] [address] [place] [address], [place] [address] Jun, [facility] [address] [id number] [address] [place] [address], [place] [address] Jun, [facility] [address] [id number] [address] [place] [address], [place] [address] Jun, [facility] [address] [id number] [address] [place] [address], [place] [address] May, [facility] [address] [id number] [address] [place] [address], [place] [address] May, [facility] [address] [id number] [address] [place] [address], [place] [address] May, [facility] [address] [id number] [address] [place] [address], [place] [address] May, [facility] [address] [id number] [address] [place] [address], [place] [address] May, [facility] [address] [id number] [address] [place] [address], [place] [address] May, [facility] [address] [id number] [address] [place] [address], [place] [address] May, [facility] [address] [id number] [address] [place] [address], [place] [address] May, [facility] [address] [id number] [address] [place] [address], [place] [address] Apr, [facility] [address] [id number] [address] [place] [address], [place] [address] 30 Apr, 2012 [facility] [address] [id number] [address] [place] [address], [place] [address] 29 Apr, 2012 [facility] [address] [id number] [address] [place] [address], [place] [address] Apr, [facility] [address] [id number] [address] [place] [address] 16 Apr, 2012 [facility] [address] [id number] [address] [place] [address], [place] [address] Apr, [facility] [address] [id number] [address] [place] [address], [place] [address] Apr, [facility] [address] [id number] [address] [place] [address] Apr, [facility] [address] [id number] [address] [place] [address], [place] [address] Apr, [facility] [address] [id number] [address] [place] [address], [place] [address] Apr, [facility] [address] [id number] [address] [place] [address], [place] [address] Apr, [facility] [address] [id number] [address] [place] [address], [place] [address] Apr, [facility] [address] [id number] [address] [place] [address], [place] [address] Mar, [facility] [address] [id number] [address] [place] [address], [place] [address] 18 Mar, 2012 [facility] [address] [id number] [address] [place] [address], [place] [address] Mar, [facility] [address] [id number] [address] [place] [address], [place] [address] Mar, [facility] [address] [id number] [address] [place] [id number] Mar, [facility] [address] [id number] [address] [place] [id number] Mar, [facility] [address] [id number] [address] [place] [address], [place] [address] Mar, [facility] [address] [id number] [address] [place] [address], [place] [address] Jan, [facility] [address] [id number] [address] [place] [address] Jan, [facility] [address] [id number] [address] [place] [id number] Jan, [facility] [address] [id number] [address] [place] [address] [id number] Jan, [facility] [address] [id number] [address] [place] [address] 17 Feb, 2012 [facility] [address] [id number] [facility] [place] [address] Jan, [facility] [address] [id number] [address] [place] [address], [place] [address] 16 Feb, 2012 [facility] [address] [id number] [address] [place] [address], [place] [address] 14 Feb, 2012 [facility] [address] [id number] [address] [place] [address], [place] [address] Jan, [facility] [address] [id number] [address] [place] [address], [place] [address] Jan, [facility] [address] [id number] [address] [place] [address], [place] [address] Jan, [facility] [address] [id number] [address] [place] [address], [place] [address] Dec, [facility] [address] [id number] [address] [place] [address], [place] [address] Dec, [facility] [address] [id number] [address] [place] [address], [place] [address] Dec, [facility] [address] [id number] [address] [place] [address], [place] [address] Dec, [facility] [address] [id number] [address] [place] [address], [place] [address] Dec, [facility] [address] [id number] [address] [place] [address], [place] [address] Dec, [facility] [address] [id number] [address] [place] [address], [place] [address] 18 Jan, 2012 [facility] [address] [id number] [address] [place] [address], [place] [address] 17 Jan, 2012 [facility] [address] [id number] [address] [place] [address], [place] [address] 16 Jan, 2012 [facility] [address] [id number] [address] [place] [address], [place] [address] 13 Jan, 2012 [facility] [address] [id number] [address] [place] [address], [place] [address] 13 Jan, 2012 [facility] [address] [id number] [address] [place] [address], [place] [address] 02 Jan, 2012 [facility] [address] [id number] [address] [place] [address], [place] [address] Dec, [facility] [address] [id number] [address] [place] [address], [place] [address] Dec, [facility] [address] [id number] [address] [place] [address], [place] [address] 25 Dec, 2011 [facility] [address] [id number] [address] [place] [address], [place] [address] 18 Dec, 2011 [facility] [address] [id number] [address] [place] [address], [place] [address] 15 Dec, 2011 [facility] [address] [id number] [address] [place] [address], [place] [address] Dec, [facility] [address] [id number] [address] [place] [address], [place] [address] 05 Dec, 2011 [facility] [address] [id number] [address] [place] [address], [place] [address] October, [facility] [address] [id number] [address] [place] [address], [place] [address] October, [facility] [address] [id number] [address] [place] [address], [place] [address] October, [facility] [address] [id number] [address] [place] [address], [place] [address] October, [facility] [address] [id number] [address] [place] [address], [place] [address] October, [facility] [address] [id number] [address] [place] [address], [place] [address] October, [facility] [address] [id number] [address] [place] [address], [place] [address] 30 Oct, 2011 [facility] [address] [id number] [address] [place] [address], [place] [address] 24 Oct, 2011 [facility] [address] [id number] [address] [place] [address], [place] [address] Oct, [facility] [address] [id number] [address] [place] [address], [place] [address] Oct, [facility] [address] [id number] [address] [place] [address], [place] [address] Oct, [facility] [address] [id number] [address] [place] [address], [place] [address] Oct, [facility] [address] [id number] [address] [place] [address], [place] [address] Oct, [facility] [address] [id number] [address] [place] [address], [place] [address] Aug, [facility] [address] [id number] [address] [place] [address], [place] [address] 29 Sep, 2011 [facility] [address] [id number] [address] [place] [address], [place] [address] Aug, [facility] [address] [id number] [address] [place] [address], [place] [address] Aug, [facility] [address] [id number] [address] [place] [address], [place] [address] Aug, [facility] [address] [id number] [address] [place] [address], [place] [address] Aug, [facility] [address] [id number] [address] [place] [address], [place] [address] 27 Aug, 2011 [facility] [address] [id number] [address] [place] [address], [place] [address] Aug, [facility] [address] [id number] [address] [place] [address] 08 Aug, 2011 [facility] [address] [id number] [address] [place] [address], [place] [address] Jul, [facility] [address] [id number] [address] [place] [address], [place] [address] Jul, [facility] [address] [id number] [address] [place] [address], [place] [address] Jul, [facility] [address] [id number] [address] [place] [address], [place] [address] Jul, [facility] [address] [id number] [address] [place] [address], [place] [address] Jun, [facility] [address] [id number] [address] [place] [address], [place] [address] Jun, [facility] [address] [id number] [address] [place] [address], [place] [address] May, [facility] [address] [id number] [address] [place] [address], [place] [address] May, [facility] [address] [id number] [address] [place] [address], [place] [address] May, [facility] [address] [id number] [address] [place] [address], [place] [address] May, [facility] [address] [id number] [address] [place] [address], [place] [address] May, [facility] [address] [id number] [address] [place] [address], [place] [address] Apr, [facility] [address] [id number] [address] [place] [address], [place] [address] Apr, [facility] [address] [id number] [address] [place] [address], [place] [address] 10 Apr, 2011 [facility] [address] [id number] [address] [place] [address], [place] [address] 15 Jan, 2011 [facility] [address] [id number] [address] [place] [address] Dec, [facility] [address] [facility] [id number] [address] [place] [address] October, [facility] [address] [facility] [place] [id number] [address] [place] [address] Jun, [facility] [address] [facility] [place] [id number] [address] [place] [address] Apr, [facility] [address] [facility] [place] [id number] [address] [place] [address] Apr, [facility] [address] [facility] [place] [id number] [address] [place] [address] Apr, [facility] [address] [facility] [place] [place] [id number] [address] [place] [address] Jun, IMMUNIZATIONS No Known Immunizations SOCIAL HISTORY [...]
--- OUTSIDE RECORDS SUMMARY | 2020-01-25 13:34 | XMS REPORT ---
Author Author Ana Iraheta Organization [facility] Address [address] [place] [address] Care Team Providers Care District Manager In Training Name Role Phone MELISA Iraheta Unavailable PROBLEMS Type Condition ICD9-CM Code [id number] Code Onset Dates Condition S tatus SNOMED Code Problem Chronic hepatitis C without hepatic coma B18.2 Active 366552915 Problem Cannabis abuse F12.10 Active 59276 009 Problem Bipolar 1 disorder F31.9 Active 3 52408526 Problem Attention deficit hyperactivity disorder (ADHD), combi luciano type F90.2 Active 03523188 Problem Attention deficit R41.840 Active 76 318443 Problem Hot flashes due to menopause N95.1 A ctive 351675687 Problem H/O laminectomy Z98.89 Active 1616 98125 Problem Other chronic pain G89.29 Active 8 8265446 Problem Anxiety disorder, unspecified type F41.9 Active 131215345 Problem Bipolar disorder, in partial remission, most rec ent episode hypomanic F31.71 Active 934898065 ALLERGIES No Information ENCOUNTERS Encounter Location Date Diagnosis [place] [address] [address] Aug, [place] [address] [address] Jul, [place] [address] [address] Jul, [place] [address] [address] Apr, [place] [address] [address] Mar, Hot flashes due to menopause N95.1 ; Anx iety disorder, unspecified type F41.9 ; Low back pain M54.5 and Encounter for immunization Z23 [facility] [address] [address] Dec, Other chronic pain G89.29 and Low back p ain M54.5 [facility] [address] [address] October, [facility] [address] [address] October, [facility] [address] [address] October, [facility] [address] [address] October, Other chronic pain G89.29 and Chronic he patitis C without hepatic coma B18.2 [facility] [address] [address] Aug, Bipolar disorder, in partial remission, most recent episode hypomanic F31.71 ; Attention deficit hyperactivity disorder (ADHD), combined type F90.2 and Anxiety disorder, unspecified type F41.9 [facility] [address] [address] Aug, [place] [address] [address] Aug, Bipolar disorder, in partial remission, most recent episode hypomanic F31.71 [facility] [address] [place] [id number] [place] [address] Aug, [facility] [address] [address] Aug, Bipolar disorder, in partial remission, most recent episode hypomanic F31.71 [place] [address] [address] Aug, Bipolar disorder, in partial remission, most recent episode hypomanic F31.71 ; Attention deficit hyperactivity disorder (ADHD), combined type F90.2 and Anxiety disorder, unspecified type F41.9 [facility] [address] [place] [address] [id number] [place] [address] Aug, Low back pain M54.5 and Pain in left wri st M25.532 [facility] [address] [id number] [place] [address] Aug, [facility] [address] [id number] [place] [address] Jun, [facility] [address] [id number] [place] [address] Apr, Bipolar disorder, in partial remission, most recent episode hypomanic F31.71 [facility] [address] [place] [id number] [place] [address] Apr, [facility] [address] [place] [id number] [place] [address] Apr, Bipolar disorder, in partial remission, most recent episode hypomanic F31.71 ; Attention deficit hyperactivity disorder (ADHD), combined type F90.2 ; Anxiety disorder, unspecified type F41.9 and Other detention (current) drug therapy Z79.899 [facility] [address] [id number] [place] [address] Apr, Bipolar disorder, in partial remission, most recent episode hypomanic F31.71 [facility] [address] [id number] [place] [address] Apr, Bipolar disorder, in partial remission, most recent episode hypomanic F31.71 [facility] [address] [place] [id number] [place] [address] Mar, [facility] [address] [id number] [place] [address] Mar, Bipolar disorder, in partial remission, most recent episode hypomanic F31.71 ; Encounter for immunization Z23 and Low back pain M54.5 [facility] [address] [id number] [place] [address] Mar, Bipolar disorder, in partial remission, most recent episode hypomanic F31.71 [facility] [address] [place] [id number] [place] [address] Mar, Bipolar disorder, in partial remission, most recent episode hypomanic F31.71 [facility] [address] [place] [id number] [place] [address] Jan, Bipolar disorder, in partial remission, most recent episode hypomanic F31.71 [facility] [address] [place] [id number] [place] [address] Jan, Bipolar disorder, in partial remission, most recent episode hypomanic F31.71 [facility] [address] [place] [id number] [place] [address] Dec, Bipolar disorder, in partial remission, most recent episode hypomanic F31.71 [facility] [address] [place] [id number] [place] [address] Dec, Bipolar disorder, in partial remission, most recent episode hypomanic F31.71 ; Attention deficit hyperactivity disorder (ADHD), combined type F90.2 ; Anxiety disorder, unspecified type F41.9 and Other detention (current) drug therapy Z79.899 [facility] [address] [place] [id number] [place] [address] Dec, Bipolar disorder, in partial remission, most recent episode hypomanic F31.71 [facility] [address] [place] [id number] [place] [address] Dec, Bipolar disorder, in partial remission, most recent episode hypomanic F31.71 [facility] [address] [place] [id number] [place] [address] October, Bipolar disorder, in partial remission, most recent episode hypomanic F31.71 [facility] [address] [id number] [place] [address] October, [facility] [address] [place] [id number] [place] [address] October, [facility] [address] [id number] [place] [address] Oct, Bipolar disorder, in partial remission, most recent episode hypomanic F31.71 ; Attention deficit hyperactivity disorder (ADHD), combined type F90.2 ; Anxiety disorder, unspecified type F41.9 and Encounter for drug screening Z02.83 [facility] [address] [place] [id number] [place] [address] Oct, Bipolar disorder, in partial remission, most recent episode hypomanic F31.71 [facility] [address] [place] [id number] [place] [address] Oct, Bipolar disorder, in partial remission, most recent episode hypomanic F31.71 [facility] [address] [place] [id number] [place] [address] Aug, Bipolar disorder, in partial remission, most recent episode hypomanic F31.71 [facility] [address] [place] [id number] [place] [address] Aug, Bipolar disorder, in partial remission, most recent episode hypomanic F31.71 [facility] [address] [place] [id number] [place] [address] Aug, Bipolar disorder, in partial remission, most recent episode hypomanic F31.71 [facility] [address] [place] [id number] [place] [address] Jul, Bipolar disorder, in partial remission, most recent episode hypomanic F31.71 ; Attention deficit hyperactivity disorder (ADHD), combined type F90.2 and Anxiety disorder, unspecified type F41.9 [facility] [address] [place] [id number] [place] [address] Jul, Bipolar disorder, in partial remission, most recent episode hypomanic F31.71 [facility] [address] [place] [id number] [place] [address] Jun, Bipolar disorder, in partial remission, most recent episode hypomanic F31.71 [facility] [address] [place] [id number] [place] [address] May, Bipolar disorder, in partial remission, most recent episode hypomanic F31.71 [facility] [address] [place] [id number] [place] [address] May, Bipolar disorder, in partial remission, most recent episode hypomanic F31.71 [facility] [address] [address] Apr, [facility] [address] [address] Apr, Bipolar disorder, in partial remission, most recent episode hypomanic F31.71 ; Attention deficit hyperactivity disorder (ADHD), combined type F90.2 ; Anxiety disorder, unspecified type F41.9 and Cannabis abuse F12.10 [facility] [address] [address] Apr, Attention deficit hyperactivity disorder (ADHD), combined type F90.2 [place] [address] [address] Mar, Attention deficit hyperactivity disorder (ADHD), combined type F90.2 [place] [address] [address] Mar, Anxiety disorder, unspecified type F41.9 [place] [address] [address] Jan, Attention deficit hyperactivity disorder (ADHD), combined type F90.2 [place] [address] [address] Jan, Anxiety disorder, unspecified type F41.9 [place] [address] [address] Jan, Other chronic pain G89.29 ; Chronic hepa titis C without hepatic coma B18.2 and Bipolar 1 disorder F31.9 [facility] [address] [address] Dec, Attention deficit hyperactivity disorder (ADHD), combined type F90.2 [facility] [address] [address] Dec, Bipolar disorder, in partial remission, most recent episode hypomanic F31.71 ; Attention deficit hyperactivity disorder (ADHD), combined type F90.2 and Anxiety disorder, unspecified type F41.9 [place] [address] [address] Dec, Bipolar disorder, in partial remission, most recent episode hypomanic F31.71 ; Attention deficit hyperactivity disorder (ADHD), combined type F90.2 and Anxiety disorder, unspecified type F41.9 [place] [address] [address] Dec, Bipolar 1 disorder F31.9 and Attention d eficit R41.840 [place] [address] [address] Oct, Other chronic pain G89.29 ; Alopecia L65 .9 and Screening, lipid Z13.220 [place] [address] [address] Oct, [place] [address] [address] Aug, [place] [address] [address] Aug, Eustachian tube dysfunction, right H69.8 1 ; Vertigo R42 and Other chronic pain G89.29 [place] [address] [address] Aug, [place] [address] [address] Jun, [place] [address] [address] Jun, Low back pain M54.5 and Other chronic pa in G89.29 [place] [address] [address] Jun, [place] [address] [address] May, [place] [address] [address] Jan, [facility] [address] [address] Dec, [facility] [address] [address] Dec, [facility] [address] [address] Jun, [facility] [address] [address] Apr, Eustachian tube dysfunction, unspecified laterality H69.80 ; Hot flashes N95.1 and Encounter for immunization Z23 [facility] [address] [address] Jan, [facility] [address] [address] Jan, [facility] [address] [address] Jan, [facility] [address] [address] Jan, [facility] [address] [address] Jan, Encounter to establish care V65.8 ; Bipo lar 1 disorder 296.7 ; Abdominal pain 789.00 ; Constipation 564.00 ; Hard of hearing 389.9 and Drug abuse 305.90 [facility] [address] [address] Dec, [facility] [address] [address] October, [facility] [address] [address] October, [facility] [address] [address] Oct, [facility] [address] [address] Oct, [facility] [place] [facility] [address] [id number] [place] [address] Oct, [facility] [place] [facility] [address] [id number] [place] [address] Aug, [facility] [place] [facility] [address] [id number] [place] [address] Aug, [facility] [place] [facility] [address] [id number] [place] [address] Aug, [facility] [place] [facility] [address] [id number] [place] [address] Aug, 2014 [facility] [place] [facility] [address] [id number] [place] [address] Aug, 2014 [facility] [place] [facility] [address] [id number] [place] [address] Aug, 2014 [facility] [place] [facility] [address] [id number] [place] [address] Aug, 2014 [facility] [place] [facility] [address] [id number] [place] [address] Aug, 2014 [facility] [place] [facility] [address] [id number] [place] [address] Aug, 2014 [facility] [place] [facility] [address] [id number] [place] [address] Aug, 2014 [facility] [place] [facility] [address] [id number] [place] [address] Aug, 2014 [facility] [place] [facility] [address] [id number] [place] [address] Aug, 2014 [facility] [place] [facility] [address] [id number] [place] [address] Aug, 2014 [facility] [place] [facility] [address] [id number] [place] [address] Aug, 2014 [facility] [place] [facility] [address] [id number] [place] [address] Aug, 2014 [facility] [place] [facility] [address] [id number] [place] [address] Jul, [facility] [place] [facility] [address] [id number] [place] [address] Jul, [facility] [place] [facility] [address] [id number] [place] [address] Jul, [facility] [place] [facility] [address] [id number] [place] [address] Jul, [facility] [place] [facility] [address] [id number] [place] [address] Jul, [facility] [place] [facility] [address] [id number] [place] [address] Jul, [facility] [place] [facility] [address] [id number] [place] [address] Jul, [facility] [place] [facility] [address] [id number] [place] [address] Jul, [facility] [place] [facility] [address] [id number] [place] [address] Jun, [facility] [place] [facility] [address] [id number] [place] [address] Jun, [facility] [place] [facility] [address] [id number] [place] [address] Jun, [facility] [place] [facility] [address] [id number] [place] [address] 29 Jun, 2014 [facility] [place] [facility] [address] [id number] [place] [address] 18 Jun, 2014 [facility] [place] [facility] [address] [id number] [place] [address] 15 Jun, 2014 [facility] [place] [facility] [address] [id number] [place] [address] 15 Jun, 2014 [facility] [place] [facility] [address] [id number] [place] [address] Jun, [facility] [place] [facility] [address] [id number] [place] [address] Jun, [facility] [place] [facility] [address] [id number] [place] [address] Jun, [facility] [place] [facility] [address] [id number] [place] [address] Jun, [facility] [place] [facility] [address] [id number] [place] [address] May, [facility] [place] [facility] [address] [place] [id number] [place] [address] May, [facility] [place] [facility] [address] [id number] [place] [address] May, [facility] [place] [facility] [address] [id number] [place] [address] May, [facility] [place] [facility] [address] [id number] [place] [address] May, [facility] [place] [facility] [address] [place] [id number] [place] [address] May, [facility] [place] [facility] [address] [id number] [place] [address] May, [facility] [place] [facility] [address] [id number] [place] [address] Apr, [facility] [place] [facility] [address] [place] [id number] [place] [address] Apr, [facility] [place] [facility] [address] [id number] [place] [address] Apr, [facility] [place] [facility] [address] [id number] [place] [address] Apr, [facility] [place] [facility] [address] [id number] [place] [address] Apr, [facility] [place] [facility] [address] [place] [id number] [place] [address] Apr, [facility] [place] [facility] [address] [id number] [place] [address] Mar, [facility] [place] [facility] [address] [id number] [place] [address] Mar, [facility] [place] [facility] [address] [facility] [id number] [facility] [place] [address] Mar, [facility] [place] [facility] [address] [facility] [id number] [facility] [place] [address] Mar, [facility] [place] [facility] [address] [id number] [place] [address] Mar, [facility] [place] [facility] [address] [id number] [facility] [place] [address] Mar, [facility] [place] [facility] [address] [facility] [id number] [place] [address] Jan, [facility] [place] [facility] [address] [id number] [place] [address] Jan, [facility] [place] [facility] [address] [id number] [place] [address] Jan, [facility] [place] [facility] [address] [id number] [place] [address] Jan, [facility] [place] [facility] [address] [id number] [place] [address] Dec, [facility] [place] [facility] [address] [id number] [place] [address] Dec, [facility] [place] [facility] [address] [id number] [place] [address] Dec, [facility] [place] [facility] [address] [id number] [place] [address] Dec, [facility] [place] [facility] [address] [facility] [id number] [place] [address] Dec, [facility] [place] [facility] [address] [id number] [place] [address] Dec, [facility] [place] [facility] [address] [id number] [place] [address] Dec, [facility] [place] [facility] [address] [id number] [place] [address] Dec, [facility] [place] [facility] [address] [id number] [place] [address] Dec, [facility] [place] [facility] [address] [id number] [place] [address] Dec, [facility] [place] [facility] [address] [id number] [place] [address] Dec, [facility] [place] [facility] [address] [id number] [place] [address] Dec, [facility] [place] [facility] [address] [id number] [place] [address] October, [facility] [place] [facility] [address] [id number] [place] [address] October, [facility] [place] [facility] [address] [id number] [place] [address] October, [facility] [place] [facility] [address] [id number] [place] [address] October, [facility] [place] [facility] [address] [id number] [place] [address] October, [facility] [place] [facility] [address] [id number] [place] [address] October, [facility] [place] [facility] [address] [id number] [place] [address] Oct, [facility] [place] [facility] [address] [id number] [place] [address] Oct, [facility] [place] [facility] [address] [id number] [place] [address] Oct, [facility] [place] [facility] [address] [id number] [place] [address] Oct, [facility] [place] [facility] [address] [id number] [place] [address] Oct, [facility] [place] [facility] [address] [id number] [place] [address] Oct, [facility] [place] [facility] [address] [id number] [place] [address] Oct, [facility] [place] [facility] [address] [id number] [place] [address] Oct, [facility] [place] [facility] [address] [id number] [place] [address] Oct, [facility] [place] [facility] [address] [id number] [place] [address] Oct, [facility] [place] [facility] [address] [id number] [place] [address] Oct, [facility] [place] [facility] [address] [id number] [place] [address] Oct, [facility] [place] [facility] [address] [id number] [place] [address] Aug, [facility] [place] [facility] [address] [id number] [place] [address] Aug, [facility] [place] [facility] [address] [id number] [place] [address] Aug, [facility] [place] [facility] [address] [id number] [place] [address] Aug, [facility] [place] [facility] [address] [id number] [place] [address] Aug, [facility] [place] [facility] [address] [id number] [place] [address] Aug, [facility] [place] [facility] [address] [id number] [place] [address] Aug, [facility] [address] [id number] [place] [address] Aug, [facility] [address] [id number] [place] [address] Aug, [facility] [address] [id number] [place] [address] Aug, [facility] [address] [id number] [place] [address] Aug, [facility] [address] [id number] [place] [address] Aug, [facility] [address] [id number] [place] [address] Aug, [facility] [address] [id number] [place] [address] Aug, [facility] [address] [id number] [place] [address] Aug, [facility] [address] [id number] [place] [address] Aug, [facility] [address] [id number] [place] [address] Aug, [facility] [address] [id number] [place] [address] Aug, [facility] [address] [id number] [place] [address] 07 Aug, 2013 [facility] [address] [id number] [place] [address] 07 Aug, 2013 [facility] [address] [id number] [place] [address] Aug, [facility] [address] [id number] [place] [address] 06 Aug, 2013 [facility] [address] [id number] [place] [address] Aug, [facility] [address] [id number] [place] [address] Aug, [facility] [address] [id number] [place] [address] Aug, [facility] [address] [id number] [place] [address] Jul, [facility] [address] [id number] [place] [address] Jul, [facility] [address] [id number] [place] [address] Jul, [facility] [address] [facility] [id number] [place] [address] Jul, [facility] [address] [id number] [place] [address] Jul, [facility] [address] [id number] [place] [address] Jul, [facility] [address] [id number] [place] [address] Jul, [facility] [address] [facility] [id number] [place] [address] Jul, [facility] [address] [id number] [place] [address] Jul, [facility] [address] [id number] [place] [address] Jul, [facility] [address] [id number] [place] [address] Jul, [facility] [address] [id number] [place] [address] Jul, [facility] [address] [facility] [id number] [place] [address] Jul, [facility] [place] [facility] [address] [id number] [place] [address] Jul, [facility] [place] [facility] [address] [id number] [place] [address] Jul, [facility] [place] [facility] [address] [id number] [place] [address] Jul, [facility] [place] [facility] [address] [id number] [place] [address] Jul, [facility] [place] [facility] [address] [id number] [place] [address] Jul, [facility] [place] [facility] [address] [id number] [place] [address] Jul, [facility] [place] [facility] [address] [id number] [place] [address] Jul, [facility] [place] [facility] [address] [facility] [id number] [place] [address] Jun, [facility] [place] [facility] [address] [facility] [id number] [place] [address] Jun, [facility] [place] [facility] [address] [id number] [place] [address] Jun, [facility] [place] [facility] [address] [id number] [place] [address] Jun, [facility] [place] [facility] [address] [id number] [place] [address] Jun, [facility] [place] [facility] [address] [id number] [place] [address] Jun, [facility] [place] [facility] [address] [id number] [place] [address] Jun, [facility] [place] [facility] [address] [id number] [place] [address] Jun, [facility] [place] [facility] [address] [id number] [place] [address] Jun, [facility] [place] [facility] [address] [id number] [place] [address] Jun, [facility] [place] [facility] [address] [id number] [place] [address] Jun, [facility] [place] [facility] [address] [id number] [place] [address] Jun, [facility] [place] [facility] [address] [id number] [place] [address] Jun, [facility] [place] [facility] [address] [id number] [place] [address] Jun, [facility] [place] [facility] [address] [id number] [place] [address] Jun, [facility] [place] [facility] [address] [id number] [place] [address] Jun, [facility] [place] [facility] [address] [id number] [place] [address] 18 Jun, 2013 [facility] [place] [facility] [address] [id number] [place] [address] 17 Jun, 2013 [facility] [place] [facility] [address] [id number] [place] [address] 17 Jun, 2013 [facility] [place] [facility] [address] [id number] [place] [address] 13 Jun, 2013 [facility] [place] [facility] [address] [id number] [place] [address] 12 Jun, 2013 [facility] [place] [facility] [address] [id number] [place] [address] Jun, [facility] [place] [facility] [address] [id number] [place] [address] Jun, [facility] [place] [facility] [address] [id number] [place] [address] 05 Jun, 2013 [facility] [place] [facility] [address] [id number] [place] [address] 05 Jun, 2013 [facility] [place] [facility] [address] [id number] [place] [address] Jun, [facility] [place] [facility] [address] [id number] [place] [address] Jun, [facility] [place] [facility] [address] [id number] [place] [address] May, [facility] [place] [facility] [address] [id number] [place] [address] May, [facility] [place] [facility] [address] [id number] [place] [address] May, [facility] [place] [facility] [address] [id number] [place] [address] May, [facility] [place] [facility] [address] [id number] [place] [address] May, [facility] [place] [facility] [address] [id number] [place] [address] May, [facility] [place] [facility] [address] [id number] [place] [address] 30 Apr, 2012 [facility] [place] [facility] [address] [id number] [place] [address] Apr, 2012 [facility] [place] [facility] [address] [id number] [place] [address] Apr, 2012 [facility] [place] [facility] [address] [id number] [place] [address] Apr, 2012 [facility] [place] [facility] [address] [id number] [place] [address] Apr, 2012 [facility] [place] [facility] [address] [id number] [place] [address] Apr, 2012 [facility] [place] [facility] [address] [id number] [place] [address] 15 Apr, 2013 [facility] [place] [facility] [address] [id number] [place] [address] Apr, 2012 [facility] [place] [facility] [address] [id number] [place] [address] 26 Sep, 2012 [facility] [place] [facility] [address] [id number] [place] [address] 24 Sep, 2012 [facility] [place] [facility] [address] [id number] [place] [address] 17 Sep, 2012 [facility] [place] [facility] [address] [id number] [place] [address] 17 Sep, 2012 [facility] [place] [facility] [address] [id number] [place] [address] 11 Sep, 2012 [facility] [place] [facility] [address] [id number] [place] [address] 10 Sep, 2012 [facility] [place] [facility] [address] [id number] [place] [address] 05 Sep, 2012 [facility] [place] [facility] [address] [id number] [place] [address] 04 Sep, 2012 [facility] [place] [facility] [address] [id number] [place] [address] Jan, [facility] [place] [facility] [address] [id number] [place] [address] Jan, [facility] [place] [facility] [address] [facility] [id number] [place] [address] 14 Jan, 2013 [facility] [place] [facility] [address] [facility] [id number] [facility] [place] [address] Jan, [facility] [place] [facility] [address] [facility] [id number] [place] [address] Jan, [facility] [place] [facility] [address] [facility] [id number] [place] [address] Jan, [facility] [place] [facility] [address] [facility] [id number] [place] [address] 31 Dec, 2012 [facility] [place] [facility] [address] [id number] [facility] [place] [address] 24 Dec, 2012 [facility] [place] [facility] [address] [id number] [facility] [place] [address] Dec, [facility] [place] [facility] [address] [facility] [id number] [facility] [place] [address] Dec, [facility] [place] [facility] [address] [id number] [facility] [place] [address] 18 Dec, 2012 [facility] [place] [facility] [address] [id number] [facility] [place] [address] 17 Dec, 2012 [facility] [place] [facility] [address] [id number] [facility] [place] [address] 16 Dec, 2012 [facility] [place] [facility] [address] [facility] [id number] [place] [address] 16 Dec, 2012 [facility] [place] [facility] [address] [facility] [id number] [facility] [place] [address] 15 Dec, 2012 [facility] [place] [facility] [address] [facility] [id number] [facility] [place] [address] 10 Dec, 2012 [facility] [place] [facility] [address] [id number] [facility] [place] [address] Dec, [facility] [place] [facility] [address] [id number] [facility] [place] [address] Dec, [facility] [place] [facility] [address] [id number] [place] [address] Dec, [facility] [place] [facility] [address] [id number] [place] [address] Dec, [facility] [place] [facility] [address] [id number] [place] [address] Dec, [facility] [place] [facility] [address] [id number] [place] [address] Dec, [facility] [place] [facility] [address] [id number] [place] [address] October, [facility] [place] [facility] [address] [id number] [place] [address] October, [facility] [place] [facility] [address] [id number] [place] [address] October, [facility] [place] [facility] [address] [id number] [place] [address] October, [facility] [place] [facility] [address] [id number] [place] [address] October, [facility] [place] [facility] [address] [id number] [place] [address] October, [facility] [place] [facility] [address] [id number] [place] [address] October, [facility] [place] [facility] [address] [id number] [place] [address] Oct, [facility] [place] [facility] [address] [id number] [place] [address] Oct, [facility] [place] [facility] [address] [id number] [place] [address] Oct, [facility] [place] [facility] [address] [id number] [place] [address] Oct, [facility] [place] [facility] [address] [id number] [place] [address] Oct, [facility] [address] [id number] [place] [address] 18 Oct, 2012 [facility] [address] [id number] [place] [address] 17 Oct, 2012 [facility] [place] [facility] [address] [id number] [place] [address] 15 Oct, 2012 [facility] [place] [facility] [address] [id number] [place] [address] 12 Oct, 2012 [facility] [place] [facility] [address] [id number] [place] [address] Oct, [facility] [address] [id number] [place] [address] Oct, [facility] [place] [facility] [address] [id number] [place] [address] Oct, [facility] [address] [id number] [place] [address] Aug, [facility] [place] [facility] [address] [id number] [place] [address] Aug, [facility] [place] [facility] [address] [id number] [place] [address] Aug, [facility] [place] [facility] [address] [id number] [place] [address] 06 Aug, 2012 [facility] [place] [facility] [address] [id number] [place] [address] 05 Aug, 2012 [facility] [place] [facility] [address] [id number] [place] [address] 05 Aug, 2012 [facility] [place] [facility] [address] [id number] [place] [address] 20 Aug, 2012 [facility] [place] [facility] [address] [id number] [place] [address] 14 Aug, 2012 [facility] [place] [facility] [address] [id number] [place] [address] 12 Aug, 2012 [facility] [place] [facility] [address] [id number] [place] [address] 11 Aug, 2012 [facility] [place] [facility] [address] [id number] [place] [address] Jul, [facility] [place] [facility] [address] [id number] [place] [address] 15 Jul, 2012 [facility] [place] [facility] [address] [id number] [place] [address] 08 Jul, 2012 [facility] [place] [facility] [address] [id number] [place] [address] 20 Jun, 2012 [facility] [place] [facility] [address] [id number] [place] [address] 18 Jun, 2012 [facility] [place] [facility] [address] [id number] [place] [address] 18 Jun, 2012 [facility] [place] [facility] [address] [id number] [place] [address] 18 Jun, 2012 [facility] [place] [facility] [address] [id number] [place] [address] 18 Jun, 2012 [facility] [place] [facility] [address] [id number] [place] [address] 14 Jun, 2012 [facility] [place] [facility] [address] [id number] [place] [address] 14 Jun, 2012 [facility] [place] [facility] [address] [id number] [place] [address] 13 Jun, 2012 [facility] [place] [facility] [address] [id number] [place] [address] 13 Jun, 2012 [facility] [place] [facility] [address] [id number] [place] [address] 11 Jun, 2012 [facility] [place] [facility] [address] [id number] [place] [address] 11 Jun, 2012 [facility] [place] [facility] [address] [id number] [place] [address] 11 Jun, 2012 [facility] [place] [facility] [address] [id number] [place] [address] 11 Jun, 2012 [facility] [place] [facility] [address] [id number] [place] [address] Jun, [facility] [place] [facility] [address] [id number] [place] [address] Jun, [facility] [place] [facility] [address] [id number] [place] [address] Jun, [facility] [place] [facility] [address] [id number] [place] [address] Jun, 2011 [facility] [place] [facility] [address] [id number] [place] [address] Jun, [facility] [place] [facility] [address] [id number] [place] [address] Jun, [facility] [place] [facility] [address] [id number] [place] [address] Jun, [facility] [place] [facility] [address] [id number] [place] [address] Jun, [facility] [place] [facility] [address] [id number] [place] [address] Jun, [facility] [place] [facility] [address] [id number] [place] [address] Jun, [facility] [place] [facility] [address] [id number] [place] [address] May, [facility] [place] [facility] [address] [id number] [place] [address] May, [facility] [place] [facility] [address] [id number] [place] [address] May, [facility] [place] [facility] [address] [id number] [place] [address] May, [facility] [place] [facility] [address] [id number] [place] [address] May, [facility] [place] [facility] [address] [id number] [place] [address] May, [facility] [place] [facility] [address] [id number] [place] [address] May, [facility] [place] [facility] [address] [id number] [place] [address] May, 2011 [facility] [place] [facility] [address] [id number] [place] [address] Apr, [facility] [place] [facility] [address] [id number] [place] [address] Apr, [facility] [place] [facility] [address] [id number] [place] [address] Apr, [facility] [place] [facility] [address] [id number] [place] [address] Apr, [facility] [place] [facility] [address] [id number] [place] [address] Apr, [facility] [place] [facility] [address] [id number] [place] [address] Apr, [facility] [place] [facility] [address] [id number] [place] [address] Apr, [facility] [place] [facility] [address] [id number] [place] [address] Apr, [facility] [place] [facility] [address] [id number] [place] [address] Apr, [facility] [place] [facility] [address] [id number] [place] [address] 08 Apr, 2012 [facility] [place] [facility] [address] [id number] [place] [address] 04 Apr, 2012 [facility] [place] [facility] [address] [id number] [place] [address] 02 Apr, 2012 [facility] [place] [facility] [address] [id number] [place] [address] 19 Sep, 2011 [facility] [place] [facility] [address] [id number] [place] [address] 18 Sep, 2011 [facility] [place] [facility] [address] [id number] [place] [address] 12 Mar, 2011 [facility] [place] [facility] [address] [id number] [place] [address] Mar, [facility] [place] [facility] [address] [id number] [place] [id number] Mar, [facility] [place] [facility] [address] [id number] [place] [id number] Mar, [facility] [place] [facility] [address] [id number] [place] [address] Mar, [facility] [place] [facility] [address] [id number] [place] [address] Jan, [facility] [place] [facility] [address] [id number] [place] [address] Jan, [facility] [place] [facility] [address] [id number] [place] [address] , [place] [id number] Jan, [facility] [place] [facility] [address] [id number] [place] [id number] Jan, [facility] [place] [facility] [address] [id number] [place] [address] Jan, [facility] [place] [facility] [address] [id number] [place] [address] Jan, [facility] [place] [facility] [address] [id number] [place] [address] Jan, [facility] [place] [facility] [address] [id number] [place] [address] Jan, [facility] [place] [facility] [address] [id number] [place] [address] Jan, [facility] [place] [facility] [address] [id number] [place] [address] Jan, [facility] [place] [facility] [address] [id number] [place] [address] Jan, [facility] [place] [facility] [address] [id number] [place] [address] Dec, [facility] [place] [facility] [address] [id number] [place] [address] Dec, [facility] [place] [facility] [address] [id number] [place] [address] 26 Jan, 2012 [facility] [place] [facility] [address] [id number] [facility] [place] [address] 26 Jan, 2012 [facility] [place] [facility] [address] [id number] [place] [address] 20 Jan, 2012 [facility] [place] [facility] [address] [id number] [facility] [place] [address] 19 Jan, 2012 [facility] [place] [facility] [address] [id number] [place] [address] 18 Jan, 2012 [facility] [place] [facility] [address] [facility] [id number] [facility] [place] [address] 17 Jan, 2012 [facility] [place] [facility] [address] [id number] [place] [address] 16 Jan, 2012 [facility] [place] [facility] [address] [id number] [place] [address] 13 Jan, 2012 [facility] [place] [facility] [address] [id number] [place] [address] 13 Jan, 2012 [facility] [place] [facility] [address] [id number] [place] [address] Dec, [facility] [place] [facility] [address] [id number] [place] [address] Dec, [facility] [place] [facility] [address] [id number] [place] [address] Dec, [facility] [address] [id number] [place] [address] 25 Dec, 2011 [facility] [address] [id number] [place] [address] 18 Dec, 2011 [facility] [address] [id number] [place] [address] 15 Dec, 2011 [facility] [address] [id number] [place] [address] 06 Dec, 2011 [facility] [address] [id number] [place] [address] Dec, [facility] [address] [id number] [place] [address] October, [facility] [address] [id number] [place] [address] October, [facility] [address] [id number] [place] [address] October, [facility] [address] [id number] [place] [address] October, [facility] [address] [id number] [place] [address] October, [facility] [address] [id number] [place] [address] October, [facility] [address] [id number] [place] [address] Oct, [facility] [address] [id number] [place] [address] Oct, [facility] [address] [id number] [place] [address] Oct, [facility] [address] [id number] [place] [address] Oct, [facility] [address] [id number] [place] [address] Oct, [facility] [address] [id number] [place] [address] Oct, [facility] [address] [id number] [place] [address] Oct, [facility] [address] [id number] [place] [address] Aug, [facility] [address] [id number] [place] [address] Aug, [facility] [address] [id number] [place] [address] Aug, [facility] [address] [id number] [place] [address] 13 Sep, 2011 [facility] [address] [id number] [place] [address] Aug, [facility] [address] [id number] [facility] [place] [address] Aug, [facility] [address] [id number] [place] [address] 27 Aug, 2011 [facility] [address] [id number] [place] [address] Aug, [facility] [address] [id number] [place] [address] 08 Aug, 2011 [facility] [address] [id number] [place] [address] Jul, [facility] [address] [id number] [place] [address] Jul, [facility] [address] [id number] [place] [address] Jul, [facility] [address] [id number] [place] [address] Jul, [facility] [address] [id number] [place] [address] Jun, [facility] [address] [id number] [place] [address] Jun, [facility] [address] [id number] [place] [address] May, [facility] [address] [id number] [place] [address] May, [facility] [address] [id number] [place] [address] May, [facility] [address] [id number] [place] [address] May, [facility] [address] [id number] [place] [address] May, [facility] [address] [id number] [place] [address] Apr, [facility] [address] [id number] [place] [address] Apr, [facility] [address] [id number] [place] [address] Apr, [facility] [address] [id number] [place] [address] Jan, [facility] [id number] [place] [address] Dec, [facility] [address] [id number] [place] [address] October, [facility] [address] [id number] [place] [address] Jun, [facility] [address] [id number] [place] [address] Apr, [facility] [address] [id number] [place] [address] Apr, [facility] [address] [id number] [place] [address] Apr, [facility] [address] [id number] [place] [address] Jun, IMMUNIZATIONS No Known Immunizations SOCIAL HISTORY [...]
--- OUTSIDE RECORDS SUMMARY | 2020-01-25 13:35 | XMS REPORT ---
Author Author Ana Brannon [facility] Address [address] [place] [address] Care Team Providers [employer] Name Role Phone daisyANEUDY Landon Unavailable PROBLEMS Type Condition ICD9-CM Code [id number] Code Onset Dates Condition S tatus SNOMED Code Problem Chronic hepatitis C without hepatic coma B18.2 Active 243071055 Problem Cannabis abuse F12.10 Active 11391 009 Problem Bipolar 1 disorder F31.9 Active 3 54935033 Problem Attention deficit hyperactivity disorder (ADHD), combi luciano type F90.2 Active 53133848 Problem Attention deficit R41.840 Active 76 208205 Problem Hot flashes due to menopause N95.1 A ctive 909401860 Problem H/O laminectomy Z98.89 Active 1616 87074 Problem Other chronic pain G89.29 Active 8 7879229 Problem Anxiety disorder, unspecified type F41.9 Active 176376879 Problem Bipolar disorder, in partial remission, most rec ent episode hypomanic F31.71 Active 977100300 ALLERGIES No Information ENCOUNTERS Encounter Location Date Diagnosis [facility] [id number] [place] [address] Aug, [facility] [id number] [place] [address] Jul, [facility] [id number] [place] [address] Jul, [facility] [address] [address] Apr, [facility] [address] [address] Mar, Hot flashes due to menopause N95.1 ; Anx iety disorder, unspecified type F41.9 ; Low back pain M54.5 and Encounter for immunization Z23 [facility] [address] [address] Dec, Other chronic pain G89.29 and Low back p ain M54.5 [facility] [id number] [place] [address] October, [facility] [address] [address] October, [facility] [address] [address] October, [facility] [address] [address] October, Other chronic pain G89.29 and Chronic he patitis C without hepatic coma B18.2 [facility] [address] [address] Aug, Bipolar disorder, in partial remission, most recent episode hypomanic F31.71 ; Attention deficit hyperactivity disorder (ADHD), combined type F90.2 and Anxiety disorder, unspecified type F41.9 [facility] [address] [address] Aug, [facility] [address] [address] Aug, Bipolar disorder, in partial remission, most recent episode hypomanic F31.71 [facility] [address] [address] Aug, [facility] [address] [address] Aug, Bipolar disorder, in partial remission, most recent episode hypomanic F31.71 [facility] [address] [address] Aug, Bipolar disorder, in partial remission, most recent episode hypomanic F31.71 ; Attention deficit hyperactivity disorder (ADHD), combined type F90.2 and Anxiety disorder, unspecified type F41.9 [facility] [id number] [place] [address] Aug, Low back pain M54.5 and Pain in left wri st M25.532 [facility] [id number] [place] [address] Aug, [facility] [id number] [place] [address] Jun, [facility] [id number] [place] [address] Apr, Bipolar disorder, in partial remission, most recent episode hypomanic F31.71 [facility] [id number] [place] [address] Apr, [facility] [id number] [place] [address] Apr, Bipolar disorder, in partial remission, most recent episode hypomanic F31.71 ; Attention deficit hyperactivity disorder (ADHD), combined type F90.2 ; Anxiety disorder, unspecified type F41.9 and 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 [facility] [id number] [place] [address] Apr, Bipolar disorder, in partial remission, most recent episode hypomanic F31.71 [facility] [id number] [place] [address] Apr, Bipolar disorder, in partial remission, most recent episode hypomanic F31.71 [facility] [id number] [place] [address] Mar, [facility] [id number] [place] [address] Mar, Bipolar disorder, in partial remission, most recent episode hypomanic F31.71 ; Encounter for immunization Z23 and Low back pain M54.5 [facility] [id number] [place] [address] Mar, Bipolar disorder, in partial remission, most recent episode hypomanic F31.71 [facility] [id number] [place] [address] Mar, Bipolar disorder, in partial remission, most recent episode hypomanic F31.71 [facility] [address] [id number] [place] [address] Jan, Bipolar disorder, in partial remission, most recent episode hypomanic F31.71 [facility] [address] [id number] [place] [address] Jan, Bipolar disorder, in partial remission, most recent episode hypomanic F31.71 [facility] [id number] [place] [address] Dec, Bipolar disorder, in partial remission, most recent episode hypomanic F31.71 [facility] [id number] [place] [address] Dec, Bipolar disorder, in partial remission, most recent episode hypomanic F31.71 ; Attention deficit hyperactivity disorder (ADHD), combined type F90.2 ; Anxiety disorder, unspecified type F41.9 and 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 [facility] [id number] [place] [address] Dec, Bipolar disorder, in partial remission, most recent episode hypomanic F31.71 [facility] [address] [id number] [place] [address] Dec, Bipolar disorder, in partial remission, most recent episode hypomanic F31.71 [facility] [id number] [place] [address] October, Bipolar disorder, in partial remission, most recent episode hypomanic F31.71 [facility] [address] [id number] [place] [address] October, [facility] [id number] [place] [address] October, [facility] [address] [id number] [place] [address] Oct, Bipolar disorder, in partial remission, most recent episode hypomanic F31.71 ; Attention deficit hyperactivity disorder (ADHD), combined type F90.2 ; Anxiety disorder, unspecified type F41.9 and Encounter for drug screening Z02.83 [facility] [id number] [place] [address] Oct, Bipolar disorder, in partial remission, most recent episode hypomanic F31.71 [facility] [id number] [place] [address] Oct, Bipolar disorder, in partial remission, most recent episode hypomanic F31.71 [facility] [id number] [place] [address] Aug, Bipolar disorder, in partial remission, most recent episode hypomanic F31.71 [facility] [id number] [place] [address] Aug, Bipolar disorder, in partial remission, most recent episode hypomanic F31.71 [facility] [address] [address] Aug, Bipolar disorder, in partial remission, most recent episode hypomanic F31.71 [facility] [address] [address] Jul, Bipolar disorder, in partial remission, most recent episode hypomanic F31.71 ; Attention deficit hyperactivity disorder (ADHD), combined type F90.2 and Anxiety disorder, unspecified type F41.9 [facility] [address] [address] Jul, Bipolar disorder, in partial remission, most recent episode hypomanic F31.71 [facility] [id number] [place] [address] Jun, Bipolar disorder, in partial remission, most recent episode hypomanic F31.71 [facility] [id number] [place] [address] May, Bipolar disorder, in partial remission, most recent episode hypomanic F31.71 [facility] [id number] [place] [address] May, Bipolar disorder, in partial remission, most recent episode hypomanic F31.71 [facility] [id number] [place] [address] Apr, [facility] [address] [address] Apr, Bipolar disorder, in partial remission, most recent episode hypomanic F31.71 ; Attention deficit hyperactivity disorder (ADHD), combined type F90.2 ; Anxiety disorder, unspecified type F41.9 and Cannabis abuse F12.10 [facility] [address] [address] Apr, Attention deficit hyperactivity disorder (ADHD), combined type F90.2 [facility] [address] [address] Mar, Attention deficit hyperactivity disorder (ADHD), combined type F90.2 [place] [facility] [address] [address] Mar, Anxiety disorder, unspecified type F41.9 [facility] [address] [address] Jan, Attention deficit hyperactivity disorder (ADHD), combined type F90.2 [facility] [facility] [address] [address] Jan, Anxiety disorder, unspecified type F41.9 [place] [address] [address] Jan, Other chronic pain G89.29 ; Chronic hepa titis C without hepatic coma B18.2 and Bipolar 1 disorder F31.9 [facility] [address] [address] Dec, Attention deficit hyperactivity disorder (ADHD), combined type F90.2 [facility] [address] [address] Dec, Bipolar disorder, in partial remission, most recent episode hypomanic F31.71 ; Attention deficit hyperactivity disorder (ADHD), combined type F90.2 and Anxiety disorder, unspecified type F41.9 [place] [address] [address] Dec, Bipolar disorder, in partial remission, most recent episode hypomanic F31.71 ; Attention deficit hyperactivity disorder (ADHD), combined type F90.2 and Anxiety disorder, unspecified type F41.9 [place] [address] [address] Dec, Bipolar 1 disorder F31.9 and Attention d eficit R41.840 [facility] [address] [address] Oct, Other chronic pain G89.29 ; Alopecia L65 .9 and Screening, lipid Z13.220 [place] [address] [address] Oct, [facility] [address] [address] Aug, [place] [address] [address] Aug, Eustachian tube dysfunction, right H69.8 1 ; Vertigo R42 and Other chronic pain G89.29 [place] [address] [address] Aug, [facility] [address] [address] Jun, [facility] [address] [address] Jun, Low back pain M54.5 and Other chronic pa in G89.29 [place] [facility] [address] [address] Jun, [facility] [address] [address] May, [facility] [address] [address] Jan, [facility] [id number] [place] [address] Dec, [facility] [address] [address] Dec, [facility] [address] [address] Jun, [facility] [address] [address] Apr, Eustachian tube dysfunction, unspecified laterality H69.80 ; Hot flashes N95.1 and Encounter for immunization Z23 [facility] [address] [address] Jan, [facility] [address] [address] Jan, [facility] [address] [address] Jan, [facility] [address] [address] Jan, [facility] [address] [address] Jan, Encounter to establish care V65.8 ; Bipo lar 1 disorder 296.7 ; Abdominal pain 789.00 ; Constipation 564.00 ; Hard of hearing 389.9 and Drug abuse 305.90 [facility] [address] [address] Dec, [facility] [address] [address] October, [facility] [address] [address] October, [facility] [address] [address] Oct, [facility] [address] [address] Oct, [facility] [address] [id number] [place] [address] Oct, [facility] [address] [id number] [place] [address] Aug, [facility] [address] [id number] [place] [address] Aug, [facility] [address] [id number] [place] [address] Aug, [facility] [address] [id number] [place] [address] Aug, 2014 [facility] [address] [id number] [place] [address] Aug, 2014 [facility] [address] [id number] [place] [address] Aug, 2014 [facility] [address] [id number] [place] [address] Aug, 2014 [facility] [address] [id number] [place] [address] Aug, 2014 [facility] [address] [id number] [place] [address] Aug, 2014 [facility] [address] [id number] [place] [address] Aug, 2014 [facility] [address] [id number] [place] [address] Aug, 2014 [facility] [address] [id number] [place] [address] Aug, 2014 [facility] [address] [id number] [place] [address] Aug, 2014 [facility] [address] [id number] [place] [address] Aug, 2014 [facility] [address] [id number] [place] [address] Aug, 2014 [facility] [address] [id number] [place] [address] Jul, [facility] [address] [id number] [place] [address] Jul, [facility] [address] [id number] [place] [address] Jul, [facility] [address] [id number] [place] [address] Jul, [facility] [address] [id number] [place] [address] Jul, [facility] [address] [id number] [place] [address] Jul, [facility] [address] [id number] [place] [address] Jul, [facility] [address] [id number] [place] [address] Jul, [facility] [address] [id number] [place] [address] Jun, [facility] [address] [id number] [place] [address] Jun, [facility] [address] [id number] [place] [address] 29 Jun, 2014 [facility] [address] [id number] [place] [address] 29 Jun, 2014 [facility] [address] [id number] [place] [address] 18 Jun, 2014 [facility] [address] [id number] [place] [address] 15 Jun, 2014 [facility] [address] [id number] [place] [address] 15 Jun, 2014 [facility] [address] [id number] [place] [address] 10 Jun, 2014 [facility] [address] [id number] [place] [address] Jun, [facility] [address] [id number] [place] [address] Jun, [facility] [address] [id number] [place] [address] Jun, [facility] [address] [id number] [place] [address] May, [facility] [address] [id number] [place] [address] May, [facility] [address] [id number] [place] [address] May, [facility] [address] [id number] [place] [address] May, [facility] [address] [id number] [place] [address] May, [facility] [id number] [place] [address] May, [facility] [address] [id number] [place] [address] May, [facility] [address] [id number] [place] [address] Apr, [facility] [address] [id number] [place] [address] Apr, [facility] [address] [id number] [place] [address] Apr, [facility] [address] [id number] [place] [address] Apr, [facility] [address] [id number] [place] [address] Apr, [facility] [address] [id number] [place] [address] Apr, [facility] [address] [id number] [place] [address] Mar, [facility] [address] [id number] [place] [address] Mar, 2013 [facility] [address] [id number] [place] [address] Mar, [facility] [address] [facility] [id number] [place] [address] Mar, [facility] [address] [id number] [place] [address] Mar, [facility] [address] [facility] [id number] [place] [address] Mar, [facility] [address] [facility] [id number] [place] [address] Jan, [facility] [address] [facility] [id number] [place] [address] Jan, [facility] [address] [id number] [place] [address] Jan, [facility] [address] [id number] [place] [address] Jan, [facility] [address] [id number] [place] [address] Dec, [facility] [address] [id number] [place] [address] Dec, [facility] [address] [id number] [place] [address] Dec, [facility] [address] [id number] [place] [address] Dec, [facility] [address] [id number] [place] [address] Dec, [facility] [address] [id number] [place] [address] Dec, [facility] [address] [id number] [place] [address] Dec, [facility] [address] [id number] [place] [address] Dec, [facility] [address] [id number] [place] [address] Dec, [facility] [address] [id number] [place] [address] Dec, [facility] [address] [id number] [place] [address] Dec, [facility] [address] [id number] [place] [address] Dec, [facility] [address] [id number] [place] [address] October, [facility] [address] [id number] [place] [address] October, [facility] [address] [id number] [place] [address] October, [facility] [address] [id number] [place] [address] October, [facility] [address] [id number] [place] [address] October, [facility] [address] [id number] [place] [address] October, [facility] [address] [id number] [place] [address] Oct, [facility] [address] [id number] [place] [address] Oct, [facility] [address] [id number] [place] [address] Oct, [facility] [address] [id number] [place] [address] Oct, [facility] [address] [id number] [place] [address] Oct, [facility] [address] [id number] [place] [address] Oct, [facility] [address] [id number] [place] [address] Oct, [facility] [address] [id number] [place] [address] Oct, [facility] [address] [id number] [place] [address] Oct, [facility] [address] [id number] [place] [address] Oct, [facility] [address] [id number] [place] [address] Oct, [facility] [address] [id number] [place] [address] Oct, [facility] [address] [id number] [place] [address] Aug, [facility] [address] [id number] [place] [address] Aug, [facility] [address] [id number] [place] [address] Aug, [facility] [address] [id number] [place] [address] Aug, [facility] [address] [id number] [place] [address] Aug, [facility] [address] [id number] [place] [address] Aug, [facility] [address] [id number] [place] [address] Aug, [facility] [address] [id number] [place] [address] Aug, [facility] [address] [id number] [place] [address] Aug, [facility] [address] [id number] [place] [address] Aug, [facility] [address] [id number] [place] [address] Aug, [facility] [address] [id number] [place] [address] Aug, [facility] [address] [id number] [place] [address] Aug, [facility] [address] [id number] [place] [address] Aug, [facility] [address] [id number] [place] [address] Aug, [facility] [address] [id number] [place] [address] Aug, [facility] [address] [id number] [place] [address] Aug, [facility] [address] [id number] [place] [address] Aug, [facility] [address] [id number] [place] [address] Aug, [facility] [address] [id number] [place] [address] Aug, [facility] [address] [id number] [place] [address] Aug, [facility] [address] [id number] [place] [address] Aug, [facility] [address] [id number] [place] [address] Aug, [facility] [address] [id number] [place] [address] Aug, [facility] [address] [id number] [place] [address] Aug, [facility] [address] [id number] [place] [address] Jul, [facility] [address] [id number] [place] [address] Jul, [facility] [address] [id number] [place] [address] Jul, [facility] [address] [id number] [place] [address] Jul, [facility] [address] [facility] [id number] [place] [address] Jul, [facility] [address] [id number] [place] [address] Jul, [facility] [address] [id number] [place] [address] Jul, [facility] [address] [facility] [id number] [place] [address] Jul, [facility] [address] [id number] [place] [address] Jul, [facility] [address] [id number] [place] [address] Jul, [facility] [address] [id number] [place] [address] Jul, [facility] [place] [facility] [address] [id number] [place] [address] Jul, [facility] [place] [facility] [address] [id number] [place] [address] Jul, [facility] [place] [facility] [address] [id number] [place] [address] Jul, [facility] [place] [facility] [address] [id number] [place] [address] Jul, [facility] [place] [facility] [address] [id number] [place] [address] Jul, [facility] [place] [facility] [address] [id number] [place] [address] Jul, [facility] [place] [facility] [address] [id number] [place] [address] Jul, [facility] [place] [facility] [address] [id number] [place] [address] Jul, [facility] [place] [facility] [address] [id number] [place] [address] Jul, [facility] [place] [facility] [address] [id number] [place] [address] Jun, [facility] [place] [facility] [address] [id number] [place] [address] Jun, [facility] [place] [facility] [address] [id number] [place] [address] Jun, [facility] [place] [facility] [address] [id number] [place] [address] Jun, [facility] [place] [facility] [address] [id number] [place] [address] Jun, [facility] [place] [facility] [address] [id number] [place] [address] Jun, [facility] [place] [facility] [address] [id number] [place] [address] Jun, [facility] [place] [facility] [address] [id number] [place] [address] Jun, [facility] [place] [facility] [address] [id number] [place] [address] Jun, [facility] [place] [facility] [address] [id number] [place] [address] Jun, [facility] [place] [facility] [address] [id number] [place] [address] Jun, [facility] [place] [facility] [address] [id number] [place] [address] Jun, [facility] [place] [facility] [address] [id number] [place] [address] Jun, [facility] [place] [facility] [address] [id number] [place] [address] Jun, [facility] [place] [facility] [address] [id number] [place] [address] Jun, [facility] [place] [facility] [address] [id number] [place] [address] 18 Jun, 2013 [facility] [place] [facility] [address] [id number] [place] [address] 18 Jun, 2013 [facility] [place] [facility] [address] [id number] [place] [address] 17 Jun, 2013 [facility] [place] [facility] [address] [id number] [place] [address] 17 Jun, 2013 [facility] [place] [facility] [address] [id number] [place] [address] 13 Jun, 2013 [facility] [place] [facility] [address] [id number] [place] [address] Jun, [facility] [place] [facility] [address] [id number] [place] [address] Jun, [facility] [place] [facility] [address] [id number] [place] [address] Jun, [facility] [place] [facility] [address] [id number] [place] [address] Jun, [facility] [place] [facility] [address] [id number] [place] [address] 05 Jun, 2013 [facility] [place] [facility] [address] [id number] [place] [address] Jun, [facility] [place] [facility] [address] [id number] [place] [address] Jun, [facility] [place] [facility] [address] [id number] [place] [address] May, [facility] [place] [facility] [address] [id number] [place] [address] May, [facility] [place] [facility] [address] [id number] [place] [address] May, [facility] [place] [facility] [id number] [place] [address] May, [facility] [place] [facility] [address] [id number] [place] [address] May, [facility] [place] [facility] [address] [id number] [place] [address] May, [facility] [place] [facility] [address] [id number] [place] [address] Apr, 2012 [facility] [place] [facility] [address] [id number] [place] [address] Apr, 2012 [facility] [place] [facility] [address] [id number] [place] [address] Apr, 2012 [facility] [place] [facility] [address] [id number] [place] [address] Apr, 2012 [facility] [place] [facility] [address] [facility] [id number] [place] [address] Apr, 2012 [facility] [place] [facility] [address] [id number] [place] [address] Apr, 2012 [facility] [place] [facility] [address] [id number] [place] [address] 15 Apr, 2013 [facility] [place] [facility] [address] [id number] [place] [address] Apr, 2012 [facility] [place] [facility] [address] [id number] [place] [address] 26 Sep, 2012 [facility] [place] [facility] [address] [id number] [place] [address] 24 Sep, 2012 [facility] [place] [facility] [address] [id number] [place] [address] 17 Sep, 2012 [facility] [place] [facility] [address] [id number] [place] [address] 17 Sep, 2012 [facility] [place] [facility] [address] [id number] [place] [address] 11 Sep, 2012 [facility] [place] [facility] [address] [id number] [place] [address] 10 Sep, 2012 [facility] [place] [facility] [address] [id number] [place] [address] 05 Sep, 2012 [facility] [place] [facility] [address] [id number] [place] [address] 04 Sep, 2012 [facility] [place] [facility] [address] [id number] [place] [address] Jan, [facility] [place] [facility] [address] [id number] [place] [address] Jan, [facility] [place] [facility] [address] [facility] [id number] [place] [address] Jan, [facility] [place] [facility] [address] [id number] [place] [address] Jan, [facility] [place] [facility] [address] [facility] [id number] [place] [address] Jan, [facility] [place] [facility] [address] [facility] [id number] [place] [address] Jan, [facility] [place] [facility] [address] [id number] [place] [address] Dec, [facility] [place] [facility] [address] [id number] [place] [address] 24 Dec, 2012 [facility] [place] [facility] [address] [id number] [place] [address] Dec, [facility] [place] [facility] [address] [facility] [id number] [place] [address] Dec, [facility] [place] [facility] [address] [id number] [place] [address] Dec, [facility] [place] [facility] [address] [id number] [place] [address] Dec, [facility] [place] [facility] [address] [id number] [place] [address] 16 Dec, 2012 [facility] [place] [facility] [address] [facility] [id number] [place] [address] 16 Dec, 2012 [facility] [place] [facility] [address] [id number] [place] [address] 15 Dec, 2012 [facility] [place] [facility] [address] [facility] [id number] [place] [address] Dec, [facility] [place] [facility] [address] [id number] [place] [address] Dec, [facility] [place] [facility] [address] [id number] [place] [address] Dec, [facility] [place] [facility] [address] [id number] [place] [address] Dec, [facility] [place] [facility] [address] [id number] [place] [address] Dec, [facility] [place] [facility] [address] [id number] [place] [address] Dec, [facility] [place] [facility] [address] [id number] [place] [address] Dec, [facility] [place] [facility] [address] [id number] [place] [address] October, [facility] [place] [facility] [address] [id number] [place] [address] October, [facility] [place] [facility] [address] [id number] [place] [address] October, [facility] [place] [facility] [address] [id number] [place] [address] October, [facility] [place] [facility] [address] [id number] [place] [address] October, [facility] [place] [facility] [address] [id number] [place] [address] October, [facility] [place] [facility] [address] [id number] [place] [address] October, [facility] [place] [facility] [address] [id number] [place] [address] Oct, [facility] [place] [facility] [address] [id number] [place] [address] Oct, [facility] [place] [facility] [address] [id number] [place] [address] Oct, [facility] [place] [facility] [address] [id number] [place] [address] Oct, [facility] [place] [facility] [address] [id number] [place] [address] Oct, [facility] [place] [facility] [address] [facility] [id number] [place] [address] 18 Oct, 2012 [facility] [place] [facility] [address] [facility] [id number] [place] [address] 17 Oct, 2012 [facility] [place] [facility] [address] [id number] [place] [address] 15 Oct, 2012 [facility] [place] [facility] [address] [id number] [place] [address] 12 Oct, 2012 [facility] [place] [facility] [address] [facility] [id number] [place] [address] Oct, [facility] [place] [facility] [address] [id number] [place] [address] Oct, [facility] [place] [facility] [address] [id number] [place] [address] 02 Oct, 2012 [facility] [place] [facility] [address] [id number] [place] [address] Aug, [facility] [place] [facility] [address] [id number] [place] [address] Aug, [facility] [place] [facility] [address] [id number] [place] [address] Aug, [facility] [place] [facility] [address] [id number] [place] [address] 06 Aug, 2012 [facility] [place] [facility] [address] [id number] [place] [address] 05 Aug, 2012 [facility] [place] [facility] [address] [id number] [place] [address] 05 Aug, 2012 [facility] [place] [facility] [address] [id number] [place] [address] 20 Aug, 2012 [facility] [place] [facility] [address] [id number] [place] [address] 14 Aug, 2012 [facility] [place] [facility] [address] [id number] [place] [address] 12 Aug, 2012 [facility] [place] [facility] [address] [id number] [place] [address] 11 Aug, 2012 [facility] [place] [facility] [address] [id number] [place] [address] 29 Jul, 2012 [facility] [place] [facility] [address] [id number] [place] [address] 15 Jul, 2012 [facility] [place] [facility] [address] [id number] [place] [address] 08 Jul, 2012 [facility] [place] [facility] [address] [id number] [place] [address] 20 Jun, 2012 [facility] [place] [facility] [address] [id number] [place] [address] 18 Jun, 2012 [facility] [place] [facility] [address] [id number] [place] [address] 18 Jun, 2012 [facility] [place] [facility] [address] [id number] [place] [address] 18 Jun, 2012 [facility] [place] [facility] [address] [id number] [place] [address] 18 Jun, 2012 [facility] [place] [facility] [address] [id number] [place] [address] 14 Jun, 2012 [facility] [place] [facility] [address] [id number] [place] [address] 14 Jun, 2012 [facility] [place] [facility] [address] [id number] [place] [address] 13 Jun, 2012 [facility] [place] [facility] [address] [id number] [place] [address] 13 Jun, 2012 [facility] [place] [facility] [address] [id number] [place] [address] 11 Jun, 2012 [facility] [place] [facility] [address] [id number] [place] [address] 11 Jun, 2012 [facility] [place] [facility] [address] [id number] [place] [address] 11 Jun, 2012 [facility] [place] [facility] [address] [id number] [place] [address] Jun, [facility] [place] [facility] [address] [id number] [place] [address] Jun, [facility] [place] [facility] [address] [id number] [place] [address] Jun, [facility] [place] [facility] [address] [id number] [place] [address] Jun, [facility] [place] [facility] [address] [id number] [place] [address] Jun, [facility] [place] [facility] [address] [id number] [place] [address] Jun, [facility] [place] [facility] [address] [id number] [place] [address] Jun, [facility] [place] [facility] [address] [id number] [place] [address] Jun, [facility] [place] [facility] [address] [id number] [place] [address] Jun, [facility] [place] [facility] [address] [id number] [place] [address] Jun, [facility] [place] [facility] [address] [id number] [place] [address] Jun, [facility] [place] [facility] [address] [id number] [place] [address] May, [facility] [place] [facility] [address] [id number] [place] [address] May, [facility] [place] [facility] [address] [id number] [place] [address] May, [facility] [place] [facility] [address] [id number] [place] [address] May, [facility] [place] [facility] [address] [id number] [place] [address] May, [facility] [place] [facility] [address] [id number] [place] [address] May, [facility] [place] [facility] [address] [id number] [place] [address] May, [facility] [place] [facility] [address] [id number] [place] [address] May, 2011 [facility] [place] [facility] [address] [id number] [place] [address] Apr, [facility] [place] [facility] [address] [id number] [place] [address] Apr, [facility] [place] [facility] [address] [id number] [place] [address] Apr, [facility] [place] [facility] [address] [id number] [place] [address] Apr, [facility] [place] [facility] [address] [id number] [place] [address] Apr, [facility] [place] [facility] [address] [id number] [place] [address] Apr, [facility] [place] [facility] [address] [id number] [place] [address] Apr, [facility] [place] [facility] [address] [id number] [place] [address] Apr, [facility] [place] [facility] [address] [id number] [place] [address] Apr, [facility] [place] [facility] [address] [id number] [place] [address] 08 Apr, 2012 [facility] [place] [facility] [address] [id number] [place] [address] 04 Apr, 2012 [facility] [place] [facility] [address] [id number] [place] [address] 02 Apr, 2012 [facility] [place] [facility] [address] [id number] [place] [address] 19 Sep, 2011 [facility] [place] [facility] [address] [id number] [place] [address] 18 Sep, 2011 [facility] [place] [facility] [address] [id number] [place] [address] 12 Mar, 2011 [facility] [place] [facility] [address] [id number] [place] [address] Mar, [facility] [place] [facility] [address] [id number] [place] [id number] Mar, [facility] [place] [facility] [address] [id number] [place] [id number] Mar, [facility] [place] [facility] [address] [id number] [place] [address] Mar, [facility] [place] [facility] [address] [id number] [place] [address] Jan, [facility] [place] [facility] [address] [id number] [place] [address] Jan, [facility] [place] [facility] [address] [id number] [place] [id number] Jan, [facility] [place] [facility] [address] [id number] [place] [address] [id number] Jan, [facility] [place] [facility] [address] [id number] [place] [address] Jan, [facility] [place] [facility] [address] [id number] [place] [address] Jan, [facility] [place] [facility] [address] [id number] [place] [address] Jan, [facility] [place] [facility] [address] [id number] [place] [address] Jan, [facility] [place] [facility] [address] [id number] [place] [address] Jan, [facility] [place] [facility] [address] [id number] [place] [address] Jan, [facility] [place] [facility] [address] [id number] [place] [address] Jan, [facility] [place] [facility] [address] [id number] [place] [address] Dec, [facility] [place] [facility] [address] [id number] [place] [address] Dec, [facility] [place] [facility] [address] [id number] [place] [address] 26 Jan, 2012 [facility] [place] [facility] [address] [id number] [place] [address] 26 Jan, 2012 [facility] [place] [facility] [address] [facility] [id number] [place] [address] 20 Jan, 2012 [facility] [place] [facility] [address] [id number] [place] [address] 19 Jan, 2012 [facility] [place] [facility] [address] [id number] [place] [address] 18 Jan, 2012 [facility] [place] [address] [facility] [id number] [place] [address] 17 Jan, 2012 [facility] [address] [id number] [place] [address] 16 Jan, 2012 [facility] [address] [id number] [place] [address] 13 Jan, 2012 [facility] [address] [id number] [place] [address] 13 Jan, 2012 [facility] [address] [id number] [place] [address] 02 Jan, 2012 [facility] [address] [id number] [place] [address] Dec, [facility] [address] [id number] [place] [address] 27 Dec, 2011 [facility] [address] [id number] [place] [address] 25 Dec, 2011 [facility] [address] [facility] [id number] [place] [address] 18 Dec, 2011 [facility] [address] [id number] [place] [address] 15 Dec, 2011 [facility] [address] [id number] [place] [address] 06 Dec, 2011 [facility] [address] [id number] [place] [address] Dec, [facility] [place] [address] [id number] [place] [address] October, [facility] [place] [address] [id number] [place] [address] October, [facility] [place] [address] [id number] [place] [address] October, [facility] [place] [address] [id number] [place] [address] October, [facility] [place] [address] [id number] [place] [address] October, [facility] [place] [address] [id number] [place] [address] October, [facility] [address] [id number] [place] [address] Oct, [facility] [address] [id number] [place] [address] Oct, [facility] [place] [address] [id number] [place] [address] Oct, [facility] [place] [address] [id number] [place] [address] Oct, [facility] [place] [address] [id number] [place] [address] Oct, [facility] [address] [id number] [place] [address] Oct, [facility] [address] [id number] [place] [address] Oct, [facility] [address] [id number] [place] [address] Aug, [facility] [address] [id number] [place] [address] Aug, [facility] [address] [id number] [place] [address] Aug, [facility] [address] [id number] [place] [address] 13 Sep, 2011 [facility] [address] [id number] [place] [address] Aug, [facility] [address] [id number] [place] [address] 05 Sep, 2011 [facility] [address] [id number] [place] [address] 27 Aug, 2011 [facility] [address] [id number] [place] [address] Aug, [facility] [address] [id number] [place] [address] Aug, [facility] [address] [id number] [place] [address] Jul, [facility] [address] [id number] [place] [address] Jul, [facility] [address] [id number] [place] [address] Jul, [facility] [address] [id number] [place] [address] Jul, [facility] [address] [id number] [place] [address] Jun, [facility] [address] [id number] [place] [address] Jun, [facility] [id number] [place] [address] May, [facility] [address] [id number] [place] [address] May, [facility] [address] [id number] [place] [address] May, [facility] [address] [id number] [place] [address] May, [facility] [address] [id number] [place] [address] May, [facility] [address] [id number] [place] [address] Apr, [facility] [address] [id number] [place] [address] Apr, [facility] [address] [id number] [place] [address] Apr, [facility] [address] [id number] [place] [address] Jan, [facility] [id number] [place] [address] Dec, [facility] [id number] [place] [address] October, [facility] [id number] [place] [address] Jun, [facility] [id number] [place] [address] Apr, [facility] [id number] [place] [address] Apr, [facility] [id number] [place] [address] Apr, [facility] [address] [id number] [place] [address] Jun, IMMUNIZATIONS No Known Immunizations SOCIAL HISTORY [...]
--- OUTSIDE RECORDS SUMMARY | 2020-01-25 13:35 | XMS REPORT ---
Author Author Ana Mayer Doctor Organization [facility] Address Unknown Phone Unavailable Care Team Providers Care Awnings Mechanic Name Role Phone Migration, Doctor Unavailable Unavailable PROBLEMS Type Condition ICD9-CM Code HIT34-ZX Code Onset Dates Condition S tatus SNOMED Code Problem Chronic hepatitis C without hepatic coma B18.2 Active 532295003 Problem Cannabis abuse F12.10 Active 62216 009 Problem Bipolar 1 disorder F31.9 Active 3 72666052 Problem Attention deficit hyperactivity disorder (ADHD), combi luciano type F90.2 Active 63407286 Problem Attention deficit R41.840 Active 76 773326 Problem Hot flashes due to menopause N95.1 A ctive 429426167 Problem H/O laminectomy Z98.89 Active 1616 92460 Problem Other chronic pain G89.29 Active 8 5129493 Problem Anxiety disorder, unspecified type F41.9 Active 132747485 Problem Bipolar disorder, in partial remission, most rec ent episode hypomanic F31.71 Active 394887335 ALLERGIES No Information ENCOUNTERS Encounter Location Date Diagnosis [facility] [address] [address] Aug, [facility] [address] [address] Aug, [facility] [address] [address] Aug, [facility] [address] [address] Jul, [facility] [address] [address] Jul, [facility] [address] [address] Apr, [facility] [address] [address] Mar, Hot flashes due to menopause N95.1 ; Anx iety disorder, unspecified type F41.9 ; Low back pain M54.5 and Encounter for immunization Z23 [facility] [address] [id number] Dec, Other chronic pain G89.29 and Low back p ain M54.5 [facility] [address] [address] October, [facility] [address] [address] October, [facility] [address] [address] October, [facility] [address] [address] October, Other chronic pain G89.29 and Chronic he patitis C without hepatic coma B18.2 [facility] [address] [address] Aug, Bipolar disorder, in partial remission, most recent episode hypomanic F31.71 ; Attention deficit hyperactivity disorder (ADHD), combined type F90.2 and Anxiety disorder, unspecified type F41.9 [facility] [address] [address] Aug, [facility] [address] [address] Aug, Bipolar disorder, in partial remission, most recent episode hypomanic F31.71 [facility] [address] [address] Aug, [facility] [address] [address] Aug, Bipolar disorder, in partial remission, most recent episode hypomanic F31.71 [facility] [address] [address] Aug, Bipolar disorder, in partial remission, most recent episode hypomanic F31.71 ; Attention deficit hyperactivity disorder (ADHD), combined type F90.2 and Anxiety disorder, unspecified type F41.9 [facility] [address] [address] Aug, Low back pain M54.5 and Pain in left wri st M25.532 [facility] [address] [address] Aug, [facility] [address] [address] Jun, [facility] [address] [address] Apr, Bipolar disorder, in partial remission, most recent episode hypomanic F31.71 [facility] [address] [address] Apr, [facility] [address] [address] Apr, Bipolar disorder, in partial remission, most recent episode hypomanic F31.71 ; Attention deficit hyperactivity disorder (ADHD), combined type F90.2 ; Anxiety disorder, unspecified type F41.9 and Other terminal gauger (current) drug therapy Z79.899 [facility] [address] [address] Apr, Bipolar disorder, in partial remission, most recent episode hypomanic F31.71 [facility] [address] [address] Apr, Bipolar disorder, in partial remission, most recent episode hypomanic F31.71 [facility] [address] [address] Mar, [facility] [address] [address] Mar, Bipolar disorder, in partial remission, most recent episode hypomanic F31.71 ; Encounter for immunization Z23 and Low back pain M54.5 [facility] [address] [address] Mar, Bipolar disorder, in partial remission, most recent episode hypomanic F31.71 [facility] [address] [id number] [place] [address] Mar, Bipolar disorder, in partial remission, most recent episode hypomanic F31.71 [facility] [address] [id number] [place] [address] Jan, Bipolar disorder, in partial remission, most recent episode hypomanic F31.71 [facility] [id number] [place] [address] Jan, Bipolar disorder, in partial remission, most recent episode hypomanic F31.71 [facility] [id number] [place] [address] Dec, Bipolar disorder, in partial remission, most recent episode hypomanic F31.71 [facility] [id number] [place] [address] Dec, Bipolar disorder, in partial remission, most recent episode hypomanic F31.71 ; Attention deficit hyperactivity disorder (ADHD), combined type F90.2 ; Anxiety disorder, unspecified type F41.9 and Other assisted (current) drug therapy Z79.899 [facility] [id number] [place] [address] Dec, Bipolar disorder, in partial remission, most recent episode hypomanic F31.71 [facility] [id number] [place] [address] Dec, Bipolar disorder, in partial remission, most recent episode hypomanic F31.71 [facility] [id number] [place] [address] October, Bipolar disorder, in partial remission, most recent episode hypomanic F31.71 [facility] [id number] [place] [address] October, [facility] [id number] [place] [address] October, [facility] [id number] [place] [address] Oct, Bipolar disorder, in partial remission, most recent episode hypomanic F31.71 ; Attention deficit hyperactivity disorder (ADHD), combined type F90.2 ; Anxiety disorder, unspecified type F41.9 and Encounter for drug screening Z02.83 [facility] [id number] [place] [address] Oct, Bipolar disorder, in partial remission, most recent episode hypomanic F31.71 [facility] [id number] [place] [address] Oct, Bipolar disorder, in partial remission, most recent episode hypomanic F31.71 [facility] [id number] [place] [address] Aug, Bipolar disorder, in partial remission, most recent episode hypomanic F31.71 [facility] [id number] [place] [address] Aug, Bipolar disorder, in partial remission, most recent episode hypomanic F31.71 [facility] [id number] [place] [address] Aug, Bipolar disorder, in partial remission, most recent episode hypomanic F31.71 [facility] [id number] [place] [address] Jul, Bipolar disorder, in partial remission, most recent episode hypomanic F31.71 ; Attention deficit hyperactivity disorder (ADHD), combined type F90.2 and Anxiety disorder, unspecified type F41.9 [facility] [id number] [place] [address] Jul, Bipolar disorder, in partial remission, most recent episode hypomanic F31.71 [facility] [id number] [place] [address] Jun, Bipolar disorder, in partial remission, most recent episode hypomanic F31.71 [facility] [address] [id number] [place] [address] May, Bipolar disorder, in partial remission, most recent episode hypomanic F31.71 [facility] [address] [address] May, Bipolar disorder, in partial remission, most recent episode hypomanic F31.71 [facility] [address] [address] Apr, [facility] [address] [address] Apr, Bipolar disorder, in partial remission, most recent episode hypomanic F31.71 ; Attention deficit hyperactivity disorder (ADHD), combined type F90.2 ; Anxiety disorder, unspecified type F41.9 and Cannabis abuse F12.10 [place] [facility] [address] [address] Apr, Attention deficit hyperactivity disorder (ADHD), combined type F90.2 [facility] [address] [address] Mar, Attention deficit hyperactivity disorder (ADHD), combined type F90.2 [facility] [address] [address] Mar, Anxiety disorder, unspecified type F41.9 [facility] [address] [address] Jan, Attention deficit hyperactivity disorder (ADHD), combined type F90.2 [facility] [address] [address] Jan, Anxiety disorder, unspecified type F41.9 [facility] [address] [address] Jan, Other chronic pain G89.29 ; Chronic hepa titis C without hepatic coma B18.2 and Bipolar 1 disorder F31.9 [facility] [address] [address] Dec, Attention deficit hyperactivity disorder (ADHD), combined type F90.2 [facility] [address] [address] Dec, Bipolar disorder, in partial remission, most recent episode hypomanic F31.71 ; Attention deficit hyperactivity disorder (ADHD), combined type F90.2 and Anxiety disorder, unspecified type F41.9 [facility] [address] [address] Dec, Bipolar disorder, in partial remission, most recent episode hypomanic F31.71 ; Attention deficit hyperactivity disorder (ADHD), combined type F90.2 and Anxiety disorder, unspecified type F41.9 [facility] [address] [address] Dec, Bipolar 1 disorder F31.9 and Attention d eficit R41.840 [facility] [address] [address] Oct, Other chronic pain G89.29 ; Alopecia L65 .9 and Screening, lipid Z13.[address] [address] Oct, [facility] [address] [address] Aug, [facility] [address] [address] Aug, Eustachian tube dysfunction, right H69.8 1 ; Vertigo R42 and Other chronic pain G89.29 [facility] [address] [address] Aug, [facility] [address] [address] Jun, [facility] [address] [address] Jun, Low back pain M54.5 and Other chronic pa in G89.29 [place] [address] [address] Jun, [place] [address] [address] May, [facility] [address] [address] Jan, [facility] [address] [address] Dec, [facility] [address] [address] Dec, [facility] [address] [address] Jun, [facility] [address] [address] Apr, Eustachian tube dysfunction, unspecified laterality H69.80 ; Hot flashes N95.1 and Encounter for immunization Z23 [facility] [address] [address] Jan, [facility] [address] [address] Jan, [facility] [address] [address] Jan, [facility] [address] [address] Jan, [facility] [address] [address] Jan, Encounter to establish care V65.8 ; Bipo lar 1 disorder 296.7 ; Abdominal pain 789.00 ; Constipation 564.00 ; Hard of hearing 389.9 and Drug abuse 305.90 [facility] [address] [address] Dec, [facility] [address] [address] October, [facility] [address] [address] October, [facility] [address] [address] Oct, [facility] [address] [id number] [place] [address] 14 Oct, 2014 [facility] [address] [id number] [place] [address] Oct, [facility] [address] [id number] [place] [address] Aug, [facility] [address] [id number] [place] [address] Aug, [facility] [address] [id number] [place] [address] Aug, [facility] [address] [id number] [place] [address] Aug, 2014 [facility] [address] [id number] [place] [address] Aug, 2014 [facility] [address] [id number] [place] [address] Aug, 2014 [facility] [address] [id number] [place] [address] Aug, 2014 [facility] [address] [id number] [place] [address] Aug, 2014 [facility] [address] [id number] [place] [address] Aug, 2014 [facility] [address] [id number] [place] [address] Aug, 2014 [facility] [address] [id number] [place] [address] Aug, 2014 [facility] [address] [id number] [place] [address] Aug, 2014 [facility] [address] [id number] [place] [address] Aug, 2014 [facility] [address] [id number] [place] [address] Aug, 2014 [facility] [address] [id number] [place] [address] Aug, [facility] [address] [id number] [place] [address] Jul, [facility] [address] [id number] [place] [address] Jul, [facility] [address] [id number] [place] [address] Jul, [facility] [address] [id number] [place] [address] Jul, [facility] [address] [id number] [place] [address] Jul, [facility] [address] [id number] [place] [address] Jul, [facility] [address] [id number] [place] [address] Jul, [facility] [address] [id number] [place] [address] Jul, [facility] [address] [id number] [place] [address] Jun, [facility] [address] [id number] [place] [address] Jun, [facility] [address] [id number] [place] [address] Jun, [facility] [address] [id number] [place] [address] 29 Jun, 2014 [facility] [address] [id number] [place] [address] 18 Jun, 2014 [facility] [address] [id number] [place] [address] 15 Jun, 2014 [facility] [address] [id number] [place] [address] Jun, [facility] [address] [id number] [place] [address] Jun, [facility] [address] [id number] [place] [address] Jun, [facility] [address] [id number] [place] [address] Jun, [facility] [address] [id number] [place] [address] Jun, [facility] [id number] [place] [address] May, [facility] [address] [id number] [place] [address] May, [facility] [address] [id number] [place] [address] May, [facility] [address] [id number] [place] [address] May, [facility] [id number] [place] [address] May, [facility] [id number] [place] [address] May, [facility] [address] [id number] [place] [address] May, [facility] [id number] [place] [address] Apr, [facility] [id number] [place] [address] Apr, [facility] [address] [id number] [place] [address] Apr, [facility] [address] [id number] [place] [address] Apr, [facility] [id number] [place] [address] Apr, [facility] [address] [id number] [place] [address] Apr, [facility] [address] [id number] [place] [address] Mar, 2013 [facility] [address] [facility] [id number] [facility] [place] [address] Mar, 2013 [facility] [address] [facility] [id number] [facility] [place] [address] Mar, 2013 [facility] [address] [id number] [place] [address] Mar, 2013 [facility] [address] [facility] [id number] [facility] [place] [address] Mar, [facility] [address] [facility] [id number] [facility] [place] [address] Mar, [facility] [address] [id number] [place] [address] Jan, [facility] [address] [id number] [place] [address] Jan, [facility] [address] [id number] [place] [address] Jan, [facility] [address] [facility] [id number] [place] [address] Jan, [facility] [address] [id number] [place] [address] Dec, [facility] [address] [id number] [place] [address] Dec, 2013 [facility] [address] [id number] [place] [address] Dec, 2013 [facility] [address] [facility] [id number] [place] [address] Dec, 2013 [facility] [address] [id number] [place] [address] Dec, [facility] [address] [id number] [place] [address] Dec, [facility] [address] [id number] [place] [address] Dec, [facility] [address] [id number] [facility] [place] [address] Dec, [facility] [address] [id number] [place] [address] Dec, [facility] [address] [id number] [place] [address] Dec, [facility] [address] [id number] [place] [address] Dec, [facility] [address] [id number] [place] [address] Dec, [facility] [address] [id number] [place] [address] October, [facility] [address] [id number] [place] [address] October, [facility] [address] [id number] [place] [address] October, [facility] [address] [id number] [place] [address] October, [facility] [address] [id number] [place] [address] October, [facility] [address] [id number] [place] [address] October, [facility] [address] [id number] [place] [address] Oct, [facility] [address] [id number] [place] [address] Oct, [facility] [address] [id number] [place] [address] Oct, [facility] [address] [id number] [place] [address] Oct, [facility] [address] [id number] [place] [address] Oct, [facility] [address] [id number] [place] [address] Oct, [facility] [address] [id number] [place] [address] Oct, [facility] [address] [id number] [place] [address] Oct, [facility] [address] [id number] [place] [address] Oct, [facility] [address] [id number] [place] [address] Oct, [facility] [address] [id number] [place] [address] Oct, [facility] [address] [id number] [place] [address] Oct, [facility] [address] [id number] [place] [address] Aug, [facility] [address] [id number] [place] [address] Aug, [facility] [address] [id number] [place] [address] Aug, [facility] [address] [id number] [place] [address] Aug, [facility] [address] [id number] [place] [address] Aug, [facility] [address] [id number] [place] [address] Aug, [facility] [address] [id number] [place] [address] Aug, [facility] [address] [id number] [place] [address] Aug, [facility] [address] [id number] [place] [address] Aug, [facility] [address] [id number] [place] [address] Aug, [facility] [address] [id number] [place] [address] Aug, [facility] [address] [facility] [id number] [place] [address] Aug, [facility] [address] [id number] [place] [address] Aug, [facility] [address] [id number] [place] [address] Aug, [facility] [address] [id number] [place] [address] Aug, [facility] [address] [id number] [place] [address] Aug, [facility] [address] [id number] [place] [address] Aug, [facility] [address] [id number] [place] [address] Aug, [facility] [address] [id number] [place] [address] Aug, [facility] [address] [id number] [place] [address] Aug, [facility] [address] [id number] [place] [address] Aug, [facility] [address] [id number] [place] [address] Aug, [facility] [address] [id number] [place] [address] Aug, [facility] [address] [id number] [place] [address] Aug, [facility] [address] [id number] [place] [address] Aug, [facility] [address] [id number] [place] [address] Jul, [facility] [address] [id number] [place] [address] Jul, [facility] [address] [id number] [place] [address] Jul, [facility] [address] [id number] [place] [address] Jul, [facility] [address] [id number] [place] [address] Jul, [facility] [address] [id number] [place] [address] Jul, [facility] [address] [facility] [id number] [place] [address] Jul, [facility] [address] [id number] [place] [address] Jul, [facility] [address] [id number] [place] [address] Jul, [facility] [address] [id number] [place] [address] Jul, [facility] [address] [id number] [place] [address] Jul, [facility] [address] [id number] [place] [address] Jul, [facility] [address] [id number] [place] [address] Jul, [facility] [place] [facility] [address] [id number] [place] [address] Jul, [facility] [place] [facility] [address] [id number] [place] [address] Jul, [facility] [place] [facility] [address] [id number] [place] [address] Jul, [facility] [place] [facility] [address] [id number] [place] [address] Jul, [facility] [place] [facility] [address] [id number] [place] [address] Jul, [facility] [place] [facility] [address] [id number] [place] [address] Jul, [facility] [place] [facility] [address] [facility] [id number] [place] [address] Jul, [facility] [place] [facility] [address] [facility] [id number] [place] [address] Jun, [facility] [place] [facility] [address] [id number] [place] [address] Jun, [facility] [place] [facility] [address] [id number] [place] [address] Jun, [facility] [place] [facility] [address] [facility] [id number] [place] [address] Jun, [facility] [place] [facility] [address] [id number] [place] [address] Jun, [facility] [place] [facility] [address] [id number] [place] [address] Jun, [facility] [place] [facility] [address] [id number] [place] [address] Jun, [facility] [place] [facility] [address] [id number] [place] [address] Jun, [facility] [place] [facility] [address] [id number] [place] [address] Jun, [facility] [place] [facility] [address] [id number] [place] [address] Jun, [facility] [place] [facility] [address] [id number] [place] [address] Jun, [facility] [place] [facility] [address] [id number] [place] [address] Jun, [facility] [place] [facility] [address] [id number] [place] [address] Jun, [facility] [place] [facility] [address] [id number] [place] [address] Jun, [facility] [place] [facility] [address] [id number] [place] [address] Jun, [facility] [place] [facility] [address] [id number] [place] [address] 18 Jun, 2012 [facility] [place] [facility] [address] [id number] [place] [address] 18 Jun, 2013 [facility] [place] [facility] [address] [id number] [place] [address] 17 Jun, 2013 [facility] [place] [facility] [address] [id number] [place] [address] 17 Jun, 2013 [facility] [place] [facility] [address] [id number] [place] [address] 13 Jun, 2013 [facility] [place] [facility] [address] [id number] [place] [address] 12 Jun, 2013 [facility] [place] [facility] [address] [id number] [place] [address] Jun, [facility] [place] [facility] [address] [id number] [place] [address] Jun, [facility] [place] [facility] [address] [id number] [place] [address] 05 Jun, 2013 [facility] [place] [facility] [address] [id number] [place] [address] 05 Jun, 2013 [facility] [place] [facility] [address] [id number] [place] [address] 04 Jun, 2013 [facility] [place] [facility] [address] [id number] [place] [address] Jun, [facility] [place] [facility] [address] [id number] [place] [address] May, [facility] [place] [facility] [address] [id number] [place] [address] May, [facility] [place] [facility] [id number] [place] [address] May, [facility] [place] [facility] [address] [id number] [place] [address] May, [facility] [place] [facility] [address] [id number] [place] [address] 05 May, 2013 [facility] [place] [facility] [address] [id number] [place] [address] May, 2012 [facility] [place] [facility] [address] [id number] [place] [address] Apr, 2012 [facility] [place] [facility] [address] [id number] [place] [address] Apr, 2012 [facility] [place] [facility] [address] [id number] [place] [address] Apr, 2012 [facility] [place] [facility] [address] [id number] [place] [address] Apr, 2012 [facility] [place] [facility] [address] [id number] [place] [address] Apr, 2012 [facility] [place] [facility] [address] [id number] [place] [address] Apr, [facility] [place] [facility] [address] [id number] [place] [address] Apr, [facility] [place] [facility] [address] [id number] [place] [address] Apr, [facility] [place] [facility] [address] [id number] [place] [address] 26 Sep, 2012 [facility] [place] [facility] [address] [id number] [place] [address] 24 Sep, 2012 [facility] [place] [facility] [address] [id number] [place] [address] 17 Sep, 2012 [facility] [place] [facility] [address] [id number] [place] [address] 17 Sep, 2012 [facility] [place] [facility] [address] [id number] [place] [address] 11 Sep, 2012 [facility] [place] [facility] [address] [id number] [place] [address] 10 Sep, 2012 [facility] [place] [facility] [address] [id number] [place] [address] 05 Sep, 2012 [facility] [place] [facility] [address] [id number] [place] [address] 04 Mar, 2013 [facility] [place] [facility] [address] [facility] [id number] [facility] [place] [address] Jan, [facility] [place] [facility] [address] [facility] [id number] [place] [address] Jan, [facility] [place] [facility] [address] [facility] [id number] [facility] [place] [address] Jan, [facility] [place] [facility] [address] [facility] [id number] [place] [address] Jan, [facility] [place] [facility] [address] [facility] [id number] [place] [address] Jan, [facility] [place] [facility] [address] [facility] [id number] [place] [address] Jan, [facility] [place] [facility] [address] [id number] [facility] [place] [address] Dec, [facility] [place] [facility] [address] [id number] [facility] [place] [address] 24 Dec, 2012 [facility] [place] [facility] [address] [facility] [id number] [facility] [place] [address] Dec, [facility] [place] [facility] [address] [id number] [facility] [place] [address] Dec, [facility] [place] [facility] [address] [id number] [facility] [place] [address] 18 Dec, 2012 [facility] [place] [facility] [address] [id number] [facility] [place] [address] 17 Dec, 2012 [facility] [place] [facility] [address] [facility] [id number] [place] [address] 16 Dec, 2012 [facility] [place] [facility] [address] [facility] [id number] [facility] [place] [address] 16 Dec, 2012 [facility] [place] [facility] [address] [facility] [id number] [facility] [place] [address] 15 Dec, 2012 [facility] [place] [facility] [address] [id number] [facility] [place] [address] 10 Dec, 2012 [facility] [place] [facility] [address] [id number] [facility] [place] [address] 28 Dec, 2012 [facility] [place] [facility] [address] [id number] [place] [address] Dec, [facility] [place] [facility] [address] [id number] [place] [address] Dec, [facility] [place] [facility] [address] [id number] [place] [address] Dec, [facility] [place] [facility] [address] [id number] [place] [address] Dec, [facility] [place] [facility] [address] [id number] [place] [address] Dec, [facility] [place] [facility] [address] [id number] [place] [address] October, [facility] [place] [facility] [address] [id number] [place] [address] October, [facility] [place] [facility] [address] [id number] [place] [address] October, [facility] [place] [facility] [address] [id number] [place] [address] October, [facility] [place] [facility] [address] [id number] [place] [address] October, [facility] [place] [facility] [address] [id number] [place] [address] October, [facility] [place] [facility] [address] [id number] [place] [address] October, [facility] [place] [facility] [address] [id number] [place] [address] Oct, [facility] [place] [facility] [address] [id number] [facility] [place] [address] Oct, [facility] [place] [facility] [address] [id number] [place] [address] Oct, [facility] [place] [facility] [address] [id number] [place] [address] Oct, [facility] [address] [id number] [place] [address] 19 Oct, 2012 [facility] [address] [id number] [place] [address] 18 Oct, 2012 [facility] [place] [facility] [address] [id number] [place] [address] 17 Oct, 2012 [facility] [place] [facility] [address] [id number] [place] [address] 15 Oct, 2012 [facility] [place] [facility] [address] [id number] [place] [address] 12 Oct, 2012 [facility] [address] [id number] [place] [address] Oct, [facility] [place] [facility] [address] [id number] [place] [address] Oct, [facility] [address] [id number] [place] [address] Oct, [facility] [place] [facility] [address] [id number] [place] [address] Aug, [facility] [place] [facility] [address] [id number] [place] [address] Aug, [facility] [place] [facility] [address] [id number] [place] [address] Aug, [facility] [place] [facility] [address] [id number] [place] [address] Aug, [facility] [place] [facility] [address] [id number] [place] [address] Aug, [facility] [place] [facility] [address] [id number] [place] [address] Aug, [facility] [place] [facility] [address] [id number] [place] [address] Aug, [facility] [place] [facility] [address] [id number] [place] [address] 14 Aug, 2012 [facility] [place] [facility] [address] [id number] [place] [address] 12 Aug, 2012 [facility] [place] [facility] [address] [id number] [place] [address] Aug, [facility] [place] [facility] [address] [id number] [place] [address] Jul, [facility] [place] [facility] [address] [id number] [place] [address] 15 Jul, 2012 [facility] [place] [facility] [address] [id number] [place] [address] 08 Jul, 2012 [facility] [place] [facility] [address] [id number] [place] [address] 20 Jun, 2012 [facility] [place] [facility] [address] [id number] [place] [address] 18 Jun, 2012 [facility] [place] [facility] [address] [id number] [place] [address] 18 Jun, 2012 [facility] [place] [facility] [address] [id number] [place] [address] 18 Jun, 2012 [facility] [place] [facility] [address] [id number] [place] [address] 18 Jun, 2012 [facility] [place] [facility] [address] [id number] [place] [address] 14 Jun, 2012 [facility] [place] [facility] [address] [id number] [place] [address] 14 Jun, 2012 [facility] [place] [facility] [address] [id number] [place] [address] 13 Jun, 2012 [facility] [place] [facility] [address] [id number] [place] [address] 13 Jun, 2012 [facility] [place] [facility] [address] [id number] [place] [address] 11 Jun, 2012 [facility] [place] [facility] [address] [id number] [place] [address] 11 Jun, 2012 [facility] [place] [facility] [address] [id number] [place] [address] 11 Jun, 2012 [facility] [place] [facility] [address] [id number] [place] [address] Jun, [facility] [place] [facility] [address] [id number] [place] [address] Jun, [facility] [place] [facility] [address] [id number] [place] [address] Jun, [facility] [place] [facility] [address] [id number] [place] [address] Jun, [facility] [place] [facility] [address] [id number] [place] [address] Jun, [facility] [place] [facility] [address] [id number] [place] [address] Jun, [facility] [place] [facility] [address] [id number] [place] [address] Jun, [facility] [place] [facility] [address] [id number] [place] [address] Jun, [facility] [place] [facility] [address] [id number] [place] [address] Jun, [facility] [place] [facility] [address] [id number] [place] [address] Jun, [facility] [place] [facility] [address] [id number] [place] [address] Jun, [facility] [place] [facility] [address] [id number] [place] [address] May, [facility] [place] [facility] [address] [id number] [place] [address] May, [facility] [place] [facility] [address] [id number] [place] [address] May, [facility] [place] [facility] [address] [id number] [place] [address] May, [facility] [place] [facility] [address] [id number] [place] [address] May, [facility] [place] [facility] [address] [id number] [place] [address] 08 May, 2012 [facility] [place] [facility] [address] [id number] [place] [address] May, 2011 [facility] [place] [facility] [address] [id number] [place] [address] May, [facility] [place] [facility] [address] [id number] [place] [address] Apr, [facility] [place] [facility] [address] [id number] [place] [address] Apr, [facility] [place] [facility] [address] [id number] [place] [address] Apr, [facility] [place] [facility] [address] [id number] [place] [address] Apr, [facility] [place] [facility] [address] [id number] [place] [address] Apr, [facility] [place] [facility] [address] [id number] [place] [address] Apr, [facility] [place] [facility] [address] [id number] [place] [address] Apr, [facility] [place] [facility] [address] [id number] [place] [address] Apr, [facility] [place] [facility] [address] [id number] [place] [address] Apr, [facility] [place] [facility] [address] [id number] [place] [address] 08 Apr, 2012 [facility] [place] [facility] [address] [id number] [place] [address] Apr, [facility] [place] [facility] [address] [id number] [place] [address] Apr, [facility] [place] [facility] [address] [id number] [place] [address] Mar, [facility] [place] [facility] [address] [id number] [place] [address] 18 Mar, 2011 [facility] [place] [facility] [address] [id number] [place] [address] Mar, [facility] [place] [facility] [address] [id number] [place] [address] Mar, [facility] [place] [facility] [address] [id number] [place] [id number] Mar, [facility] [place] [facility] [address] [id number] [place] [address] Mar, [facility] [place] [facility] [address] [id number] [place] [address] Mar, [facility] [place] [facility] [address] [id number] [place] [address] Jan, [facility] [place] [facility] [address] [id number] [place] [address] Jan, [facility] [place] [facility] [address] [id number] [place] [address] [id number] Jan, [facility] [place] [facility] [address] [id number] [place] [id number] Jan, [facility] [place] [facility] [address] [id number] [place] [address] Jan, [facility] [place] [facility] [address] [id number] [place] [address] Jan, [facility] [place] [facility] [address] [id number] [place] [address] Jan, [facility] [place] [facility] [address] [id number] [place] [address] Jan, [facility] [place] [facility] [address] [id number] [place] [address] Jan, [facility] [place] [facility] [address] [id number] [place] [address] Jan, [facility] [place] [facility] [address] [id number] [place] [address] Jan, [facility] [place] [facility] [address] [id number] [place] [address] Dec, [facility] [place] [facility] [address] [id number] [place] [address] 27 Jan, 2012 [facility] [place] [facility] [address] [id number] [facility] [place] [address] 26 Jan, 2012 [facility] [place] [facility] [address] [id number] [place] [address] 26 Jan, 2012 [facility] [place] [facility] [address] [id number] [facility] [place] [address] 20 Jan, 2012 [facility] [place] [facility] [address] [id number] [place] [address] 19 Jan, 2012 [facility] [place] [facility] [address] [facility] [id number] [place] [address] 18 Jan, 2012 [facility] [place] [facility] [address] [id number] [place] [address] 17 Jan, 2012 [facility] [place] [facility] [address] [id number] [place] [address] 16 Jan, 2012 [facility] [place] [facility] [address] [id number] [place] [address] Dec, [facility] [place] [facility] [address] [id number] [place] [address] Dec, [facility] [place] [facility] [address] [id number] [place] [address] 02 Jan, 2012 [facility] [place] [facility] [address] [id number] [place] [address] Dec, [facility] [place] [facility] [address] [id number] [place] [address] Dec, [facility] [place] [facility] [address] [id number] [place] [address] 25 Dec, 2011 [facility] [place] [facility] [address] [id number] [place] [address] 18 Dec, 2011 [facility] [place] [facility] [address] [id number] [place] [address] 15 Dec, 2011 [facility] [place] [facility] [address] [id number] [place] [address] Dec, [facility] [place] [facility] [address] [id number] [place] [address] Dec, [facility] [place] [facility] [address] [id number] [place] [address] October, [facility] [place] [facility] [address] [id number] [place] [address] October, [facility] [place] [facility] [address] [id number] [place] [address] October, [facility] [place] [facility] [address] [id number] [place] [address] October, [facility] [place] [facility] [address] [id number] [place] [address] October, [facility] [place] [facility] [address] [id number] [place] [address] October, [facility] [place] [facility] [address] [id number] [place] [address] Oct, [facility] [place] [facility] [address] [id number] [place] [address] Oct, [facility] [place] [facility] [address] [id number] [place] [address] Oct, [facility] [address] [id number] [place] [address] Oct, [facility] [address] [id number] [place] [address] Oct, [facility] [address] [id number] [place] [address] Oct, [facility] [address] [id number] [place] [address] Oct, [facility] [address] [id number] [place] [address] Aug, [facility] [address] [id number] [place] [address] Aug, [facility] [address] [id number] [place] [address] Aug, [facility] [address] [id number] [facility] [place] [address] Aug, [facility] [address] [id number] [facility] [place] [address] Aug, [facility] [address] [id number] [place] [address] Aug, [facility] [address] [id number] [place] [address] Aug, [facility] [address] [id number] [facility] [place] [address] Aug, [facility] [address] [id number] [place] [address] Aug, [facility] [address] [id number] [place] [address] Jul, [facility] [address] [id number] [place] [address] Jul, [facility] [address] [id number] [place] [address] Jul, [facility] [address] [id number] [place] [address] Jul, [facility] [address] [id number] [place] [address] Jun, [facility] [address] [id number] [place] [address] Jun, [facility] [address] [id number] [place] [address] May, [facility] [address] [id number] [place] [address] May, [facility] [address] [id number] [place] [address] May, [facility] [address] [id number] [place] [address] May, [facility] [address] [id number] [place] [address] May, [facility] [address] [id number] [place] [address] Apr, [facility] [address] [id number] [place] [address] Apr, [facility] [address] [id number] [place] [address] Apr, [facility] [id number] [place] [address] Jan, [facility] [address] [id number] [place] [address] Dec, [facility] [address] [id number] [place] [address] October, [facility] [address] [id number] [place] [address] Jun, [facility] [address] [id number] [place] [address] Apr, [facility] [address] [id number] [place] [address] Apr, [facility] [address] [id number] [place] [address] Apr, [facility] [address] [id number] [place] [address] Jun, IMMUNIZATIONS No Known Immunizations SOCIAL HISTORY [...]
--- OUTSIDE RECORDS SUMMARY | 2020-01-25 13:35 | XMS REPORT ---
Author Author Ana Iraheta Organization [facility] Address [address] [place] [address] Care Team Providers Care Skills Auditor Name Role Phone MELISA Iraheta Unavailable PROBLEMS Type Condition ICD9-CM Code [id number] Code Onset Dates Condition S tatus SNOMED Code Problem Chronic hepatitis C without hepatic coma B18.2 Active 433702262 Problem Cannabis abuse F12.10 Active 61291 009 Problem Bipolar 1 disorder F31.9 Active 3 25681192 Problem Attention deficit hyperactivity disorder (ADHD), combi luciano type F90.2 Active 87134997 Problem Attention deficit R41.840 Active 76 748456 Problem Hot flashes due to menopause N95.1 A ctive 267150039 Problem H/O laminectomy Z98.89 Active 1616 16081 Problem Other chronic pain G89.29 Active 8 6908340 Problem Anxiety disorder, unspecified type F41.9 Active 168049196 Problem Bipolar disorder, in partial remission, most rec ent episode hypomanic F31.71 Active 466284960 ALLERGIES No Information ENCOUNTERS Encounter Location Date Diagnosis [facility] [id number] [place] [address] Aug, [facility] [address] [address] Aug, [facility] [address] [address] Aug, [facility] [address] [address] Jul, [facility] [address] [address] Jul, [facility] [address] [address] Apr, [facility] [address] [address] Mar, Hot flashes due to menopause N95.1 ; Anx iety disorder, unspecified type F41.9 ; Low back pain M54.5 and Encounter for immunization Z23 [facility] [address] [address] Dec, Other chronic pain G89.29 and Low back p ain M54.5 [facility] [address] [address] October, [facility] [address] [address] October, [facility] [address] [address] October, [facility] [address] [address] October, Other chronic pain G89.29 and Chronic he patitis C without hepatic coma B18.2 [facility] [address] [address] Aug, Bipolar disorder, in partial remission, most recent episode hypomanic F31.71 ; Attention deficit hyperactivity disorder (ADHD), combined type F90.2 and Anxiety disorder, unspecified type F41.9 [facility] [address] [address] Aug, [facility] [address] [address] Aug, Bipolar disorder, in partial remission, most recent episode hypomanic F31.71 [facility] [address] [address] Aug, [facility] [address] [address] Aug, Bipolar disorder, in partial remission, most recent episode hypomanic F31.71 [facility] [address] [address] Aug, Bipolar disorder, in partial remission, most recent episode hypomanic F31.71 ; Attention deficit hyperactivity disorder (ADHD), combined type F90.2 and Anxiety disorder, unspecified type F41.9 [facility] [address] [address] Aug, Low back pain M54.5 and Pain in left wri st M25.532 [facility] [address] [address] Aug, [facility] [id number] [place] [address] Jun, [facility] [address] [address] Apr, Bipolar disorder, in partial remission, most recent episode hypomanic F31.71 [place] [address] [address] Apr, [facility] [address] [address] Apr, Bipolar disorder, in partial remission, most recent episode hypomanic F31.71 ; Attention deficit hyperactivity disorder (ADHD), combined type F90.2 ; Anxiety disorder, unspecified type F41.9 and Other terminal gauger (current) drug therapy Z79.899 [facility] [address] [address] Apr, Bipolar disorder, in partial remission, most recent episode hypomanic F31.71 [facility] [address] [address] Apr, Bipolar disorder, in partial remission, most recent episode hypomanic F31.71 [facility] [address] [address] Mar, [facility] [address] [address] Mar, Bipolar disorder, in partial remission, most recent episode hypomanic F31.71 ; Encounter for immunization Z23 and Low back pain M54.5 [facility] [id number] [place] [address] Mar, Bipolar disorder, in partial remission, most recent episode hypomanic F31.71 [facility] [address] [id number] [place] [address] Mar, Bipolar disorder, in partial remission, most recent episode hypomanic F31.71 [facility] [id number] [place] [address] Jan, Bipolar disorder, in partial remission, most recent episode hypomanic F31.71 [facility] [id number] [place] [address] Jan, Bipolar disorder, in partial remission, most recent episode hypomanic F31.71 [facility] [id number] [place] [address] Dec, Bipolar disorder, in partial remission, most recent episode hypomanic F31.71 [facility] [id number] [place] [address] Dec, Bipolar disorder, in partial remission, most recent episode hypomanic F31.71 ; Attention deficit hyperactivity disorder (ADHD), combined type F90.2 ; Anxiety disorder, unspecified type F41.9 and Other usp (current) drug therapy Z79.899 [facility] [id number] [place] [address] Dec, Bipolar disorder, in partial remission, most recent episode hypomanic F31.71 [facility] [id number] [place] [address] Dec, Bipolar disorder, in partial remission, most recent episode hypomanic F31.71 [facility] [id number] [place] [address] October, Bipolar disorder, in partial remission, most recent episode hypomanic F31.71 [facility] [id number] [place] [address] October, [facility] [id number] [place] [address] October, [facility] [id number] [place] [address] Oct, Bipolar disorder, in partial remission, most recent episode hypomanic F31.71 ; Attention deficit hyperactivity disorder (ADHD), combined type F90.2 ; Anxiety disorder, unspecified type F41.9 and Encounter for drug screening Z02.83 [facility] [address] [address] Oct, Bipolar disorder, in partial remission, most recent episode hypomanic F31.71 [facility] [address] [address] Oct, Bipolar disorder, in partial remission, most recent episode hypomanic F31.71 [facility] [place] [id number] [place] [address] Aug, Bipolar disorder, in partial remission, most recent episode hypomanic F31.71 [facility] [address] [address] Aug, Bipolar disorder, in partial remission, most recent episode hypomanic F31.71 [facility] [id number] [place] [address] Aug, Bipolar disorder, in partial remission, most recent episode hypomanic F31.71 [facility] [id number] [place] [address] Jul, Bipolar disorder, in partial remission, most recent episode hypomanic F31.71 ; Attention deficit hyperactivity disorder (ADHD), combined type F90.2 and Anxiety disorder, unspecified type F41.9 [facility] [address] [address] Jul, Bipolar disorder, in partial remission, most recent episode hypomanic F31.71 [facility] [id number] [place] [address] Jun, Bipolar disorder, in partial remission, most recent episode hypomanic F31.71 [facility] [address] [address] May, Bipolar disorder, in partial remission, most recent episode hypomanic F31.71 [facility] [place] [address] [address] May, Bipolar disorder, in partial remission, most recent episode hypomanic F31.71 [facility] [address] [address] Apr, [facility] [address] [address] Apr, Bipolar disorder, in partial remission, most recent episode hypomanic F31.71 ; Attention deficit hyperactivity disorder (ADHD), combined type F90.2 ; Anxiety disorder, unspecified type F41.9 and Cannabis abuse F12.10 [facility] [place] [address] [address] Apr, Attention deficit hyperactivity disorder (ADHD), combined type F90.2 [facility] [address] [address] Mar, Attention deficit hyperactivity disorder (ADHD), combined type F90.2 [facility] [place] [address] [address] Mar, Anxiety disorder, unspecified type F41.9 [facility] [place] [address] [address] Jan, Attention deficit hyperactivity disorder (ADHD), combined type F90.2 [facility] [place] [address] [address] Jan, Anxiety disorder, unspecified type F41.[address] [address] Jan, Other chronic pain G89.29 ; Chronic hepa titis C without hepatic coma B18.2 and Bipolar 1 disorder F31.9 [facility] [place] [address] [address] Dec, Attention deficit hyperactivity disorder (ADHD), combined type F90.2 [facility] [address] [address] Dec, Bipolar disorder, in partial remission, most recent episode hypomanic F31.71 ; Attention deficit hyperactivity disorder (ADHD), combined type F90.2 and Anxiety disorder, unspecified type F41.9 [facility] [address] [address] Dec, Bipolar disorder, in partial remission, most recent episode hypomanic F31.71 ; Attention deficit hyperactivity disorder (ADHD), combined type F90.2 and Anxiety disorder, unspecified type F41.9 [facility] [place] [address] [address] Dec, Bipolar 1 disorder F31.9 and Attention d eficit R41.840 [facility] [address] [address] Oct, Other chronic pain G89.29 ; Alopecia L65 .9 and Screening, lipid Z13.220 [place] [place] [address] [address] Oct, [facility] [place] [address] [address] Aug, [place] [address] [address] Aug, Eustachian tube dysfunction, right H69.8 1 ; Vertigo R42 and Other chronic pain G89.29 [facility] [address] [address] Aug, [place] [address] [address] Jun, [facility] [address] [address] Jun, Low back pain M54.5 and Other chronic pa in G89.29 [facility] [address] [address] Jun, [facility] [address] [address] May, [facility] [address] [address] Jan, [facility] [address] [address] Dec, [facility] [address] [address] Dec, [facility] [address] [address] Jun, [facility] [address] [address] Apr, Eustachian tube dysfunction, unspecified laterality H69.80 ; Hot flashes N95.1 and Encounter for immunization Z23 [facility] [address] [address] Jan, [facility] [address] [address] Jan, [facility] [address] [address] Jan, [facility] [address] [address] Jan, [facility] [address] [address] Jan, Encounter to establish care V65.8 ; Bipo lar 1 disorder 296.7 ; Abdominal pain 789.00 ; Constipation 564.00 ; Hard of hearing 389.9 and Drug abuse 305.90 [facility] [address] [address] Dec, [facility] [address] [address] October, [facility] [address] [address] October, [facility] [address] [id number] [place] [address] 30 Oct, 2014 [facility] [address] [id number] [place] [address] 14 Oct, 2014 [facility] [address] [id number] [place] [address] 13 Oct, 2014 [facility] [address] [id number] [place] [address] Aug, [facility] [address] [id number] [place] [address] Aug, [facility] [address] [id number] [place] [address] Aug, [facility] [address] [id number] [place] [address] Aug, 2014 [facility] [address] [id number] [place] [address] Aug, 2014 [facility] [address] [id number] [place] [address] Aug, 2014 [facility] [address] [id number] [place] [address] Aug, 2014 [facility] [address] [id number] [place] [address] Aug, 2014 [facility] [address] [id number] [place] [address] Aug, 2014 [facility] [address] [id number] [place] [address] Aug, 2014 [facility] [address] [id number] [place] [address] Aug, 2014 [facility] [address] [id number] [place] [address] Aug, 2014 [facility] [address] [id number] [place] [address] Aug, 2014 [facility] [address] [id number] [place] [address] Aug, [facility] [address] [facility] [facility] [id number] [place] [address] Aug, [facility] [address] [id number] [place] [address] Jul, [facility] [address] [id number] [place] [address] Jul, [facility] [address] [id number] [place] [address] Jul, [facility] [address] [id number] [place] [address] Jul, [facility] [address] [id number] [place] [address] Jul, [facility] [address] [id number] [place] [address] Jul, [facility] [address] [id number] [place] [address] Jul, [facility] [address] [id number] [place] [address] Jul, [facility] [address] [id number] [place] [address] Jun, [facility] [address] [id number] [place] [address] Jun, [facility] [address] [id number] [place] [address] Jun, [facility] [address] [id number] [place] [address] 29 Jun, 2014 [facility] [address] [id number] [place] [address] 18 Jun, 2014 [facility] [address] [id number] [place] [address] Jun, [facility] [address] [id number] [place] [address] Jun, [facility] [address] [id number] [place] [address] Jun, [facility] [address] [id number] [place] [address] Jun, [facility] [address] [id number] [place] [address] Jun, [facility] [address] [id number] [place] [address] Jun, [facility] [address] [id number] [place] [address] May, [facility] [address] [id number] [place] [address] May, [facility] [address] [id number] [place] [address] May, [facility] [id number] [place] [address] May, [facility] [address] [id number] [place] [address] May, [facility] [address] [id number] [place] [address] May, [facility] [id number] [place] [address] May, [facility] [address] [id number] [place] [address] Apr, [facility] [address] [id number] [place] [address] Apr, [facility] [address] [id number] [place] [address] Apr, [facility] [id number] [place] [address] Apr, [facility] [address] [id number] [place] [address] Apr, [facility] [id number] [place] [address] Apr, [facility] [address] [facility] [address] [facility] [id number] [place] [address] Mar, [facility] [address] [facility] [address] [facility] [id number] [place] [address] Mar, [facility] [address] [id number] [place] [address] Mar, [facility] [address] [facility] [address] [facility] [id number] [place] [address] Mar, [facility] [address] [facility] [address] [facility] [id number] [place] [address] Mar, [facility] [address] [id number] [place] [address] Mar, [facility] [address] [id number] [place] [address] Jan, [facility] [address] [id number] [place] [address] Jan, [facility] [address] [id number] [place] [address] Jan, [facility] [address] [id number] [place] [address] Jan, [facility] [address] [id number] [place] [address] Dec, [facility] [address] [id number] [place] [address] Dec, [facility] [address] [facility] [facility] [id number] [place] [address] Dec, [facility] [address] [facility] [address] [facility] [id number] [place] [address] Dec, [facility] [address] [id number] [place] [address] Dec, [facility] [address] [id number] [place] [address] Dec, [facility] [address] [id number] [place] [address] Dec, [facility] [address] [id number] [place] [address] Dec, [facility] [address] [id number] [place] [address] Dec, [facility] [address] [id number] [place] [address] Dec, [facility] [address] [id number] [place] [address] Dec, [facility] [address] [id number] [place] [address] Dec, [facility] [address] [id number] [place] [address] October, [facility] [address] [id number] [place] [address] October, [facility] [address] [id number] [place] [address] October, [facility] [address] [id number] [place] [address] October, [facility] [address] [id number] [place] [address] October, [facility] [address] [id number] [place] [address] October, [facility] [address] [id number] [place] [address] Oct, [facility] [address] [id number] [place] [address] Oct, [facility] [address] [id number] [place] [address] Oct, [facility] [address] [id number] [place] [address] Oct, [facility] [address] [id number] [place] [address] Oct, [facility] [address] [id number] [place] [address] Oct, [facility] [address] [id number] [place] [address] Oct, [facility] [address] [id number] [place] [address] Oct, [facility] [address] [id number] [place] [address] Oct, [facility] [address] [id number] [place] [address] Oct, [facility] [address] [id number] [place] [address] Oct, [facility] [address] [id number] [place] [address] Oct, [facility] [address] [id number] [place] [address] Aug, [facility] [address] [id number] [place] [address] 15 Aug, 2013 [facility] [address] [id number] [place] [address] Aug, [facility] [address] [id number] [place] [address] Aug, [facility] [address] [id number] [place] [address] Aug, [facility] [address] [id number] [place] [address] 05 Aug, 2013 [facility] [address] [id number] [place] [address] 04 Aug, 2013 [facility] [address] [id number] [place] [address] Aug, [facility] [address] [id number] [place] [address] Aug, [facility] [address] [id number] [place] [address] Aug, [facility] [address] [address] [facility] [id number] [place] [address] Aug, [facility] [address] [id number] [place] [address] Aug, [facility] [address] [id number] [place] [address] Aug, [facility] [address] [id number] [place] [address] 20 Aug, 2013 [facility] [address] [id number] [place] [address] Aug, [facility] [address] [id number] [place] [address] 14 Aug, 2013 [facility] [address] [id number] [place] [address] Aug, [facility] [address] [id number] [place] [address] 14 Aug, 2013 [facility] [address] [id number] [place] [address] Aug, [facility] [address] [id number] [place] [address] 07 Aug, 2013 [facility] [address] [id number] [place] [address] Aug, [facility] [address] [id number] [place] [address] Aug, [facility] [address] [id number] [place] [address] Aug, [facility] [address] [id number] [place] [address] Aug, [facility] [address] [id number] [place] [address] Aug, [facility] [address] [id number] [place] [address] Jul, [facility] [address] [id number] [place] [address] Jul, [facility] [address] [id number] [place] [address] Jul, [facility] [address] [id number] [place] [address] Jul, [facility] [address] [id number] [place] [address] Jul, [facility] [address] [facility] [id number] [place] [address] Jul, [facility] [address] [id number] [place] [address] Jul, [facility] [address] [id number] [place] [address] Jul, [facility] [address] [id number] [place] [address] Jul, [facility] [address] [id number] [place] [address] Jul, [facility] [address] [id number] [place] [address] Jul, [facility] [address] [id number] [place] [address] Jul, [facility] [address] [id number] [place] [address] Jul, [facility] [address] [id number] [place] [address] Jul, [facility] [address] [id number] [place] [address] Jul, [facility] [address] [id number] [place] [address] Jul, [facility] [address] [id number] [place] [address] Jul, [facility] [address] [id number] [place] [address] Jul, [facility] [facility] [address] [facility] [id number] [place] [address] Jul, [facility] [place] [facility] [address] [id number] [place] [address] Jul, [facility] [place] [facility] [address] [id number] [place] [address] Jun, [facility] [place] [facility] [address] [id number] [place] [address] Jun, [facility] [place] [facility] [address] [facility] [id number] [place] [address] Jun, [facility] [place] [facility] [address] [id number] [place] [address] Jun, [facility] [place] [facility] [address] [id number] [place] [address] Jun, [facility] [place] [facility] [address] [id number] [place] [address] Jun, [facility] [place] [facility] [address] [id number] [place] [address] Jun, [facility] [place] [facility] [address] [id number] [place] [address] Jun, [facility] [place] [facility] [address] [id number] [place] [address] Jun, [facility] [place] [facility] [address] [id number] [place] [address] Jun, [facility] [place] [facility] [address] [id number] [place] [address] Jun, [facility] [place] [facility] [address] [id number] [place] [address] Jun, [facility] [place] [facility] [address] [id number] [place] [address] Jun, [facility] [place] [facility] [address] [id number] [place] [address] Jun, [facility] [place] [facility] [address] [id number] [place] [address] 20 Jun, 2012 [facility] [place] [facility] [address] [id number] [place] [address] 18 Jun, 2013 [facility] [place] [facility] [address] [id number] [place] [address] 18 Jun, 2013 [facility] [place] [facility] [address] [id number] [place] [address] 17 Jun, 2013 [facility] [place] [facility] [address] [id number] [place] [address] 17 Jun, 2013 [facility] [place] [facility] [address] [id number] [place] [address] 13 Jun, 2013 [facility] [place] [facility] [address] [id number] [place] [address] 12 Jun, 2013 [facility] [place] [facility] [address] [id number] [place] [address] 12 Jun, 2013 [facility] [place] [facility] [address] [id number] [place] [address] 09 Jun, 2013 [facility] [place] [facility] [address] [id number] [place] [address] 05 Jun, 2013 [facility] [place] [facility] [address] [id number] [place] [address] 05 Jun, 2013 [facility] [place] [facility] [address] [id number] [place] [address] Jun, [facility] [place] [facility] [address] [id number] [place] [address] 04 Jun, 2013 [facility] [place] [facility] [address] [id number] [place] [address] May, [facility] [place] [facility] [address] [id number] [place] [address] May, [facility] [place] [facility] [address] [id number] [place] [address] May, [facility] [place] [facility] [address] [id number] [place] [address] May, [facility] [place] [facility] [address] [id number] [place] [address] May, [facility] [place] [facility] [address] [id number] [place] [address] May, [facility] [place] [facility] [address] [id number] [place] [address] Apr, 2012 [facility] [place] [facility] [address] [id number] [place] [address] Apr, 2012 [facility] [place] [facility] [address] [id number] [place] [address] Apr, 2012 [facility] [place] [facility] [address] [id number] [place] [address] Apr, [facility] [place] [facility] [address] [id number] [place] [address] Apr, [facility] [place] [facility] [address] [id number] [place] [address] Apr, [facility] [place] [facility] [address] [id number] [place] [address] 15 Apr, 2013 [facility] [place] [facility] [address] [id number] [place] [address] Apr, [facility] [place] [facility] [address] [id number] [place] [address] 26 Mar, 2012 [facility] [place] [facility] [address] [id number] [place] [address] 24 Sep, 2012 [facility] [place] [facility] [address] [id number] [place] [address] 17 Sep, 2012 [facility] [place] [facility] [address] [id number] [place] [address] 17 Sep, 2012 [facility] [place] [facility] [address] [id number] [place] [address] 11 Sep, 2012 [facility] [place] [facility] [address] [id number] [place] [address] 10 Sep, 2012 [facility] [place] [facility] [address] [id number] [place] [address] 05 Mar, 2012 [facility] [place] [facility] [address] [facility] [id number] [facility] [address] 04 Mar, 2013 [facility] [place] [facility] [address] [facility] [id number] [place] [address] Jan, [facility] [place] [facility] [address] [facility] [id number] [facility] [address] Jan, [facility] [place] [facility] [address] [facility] [id number] [place] [address] 14 Jan, 2013 [facility] [place] [facility] [address] [facility] [id number] [place] [address] Jan, [facility] [place] [facility] [address] [facility] [id number] [place] [address] Jan, [facility] [place] [facility] [address] [id number] [place] [address] Jan, [facility] [place] [facility] [address] [id number] [place] [address] 31 Dec, 2012 [facility] [place] [facility] [address] [facility] [id number] [facility] [address] 24 Dec, 2012 [facility] [place] [facility] [address] [id number] [place] [address] 22 Dec, 2012 [facility] [place] [facility] [address] [id number] [place] [address] Dec, [facility] [place] [facility] [address] [id number] [place] [address] 18 Dec, 2012 [facility] [place] [facility] [address] [facility] [id number] [place] [address] 17 Dec, 2012 [facility] [place] [facility] [address] [id number] [place] [address] 16 Dec, 2012 [facility] [place] [facility] [address] [facility] [id number] [facility] [address] 16 Dec, 2012 [facility] [place] [facility] [address] [id number] [place] [address] 15 Dec, 2012 [facility] [place] [facility] [address] [id number] [place] [address] 10 Dec, 2012 [facility] [place] [facility] [address] [id number] [place] [address] Dec, [facility] [place] [facility] [address] [id number] [place] [address] Dec, [facility] [place] [facility] [address] [id number] [place] [address] Dec, [facility] [place] [facility] [address] [id number] [place] [address] Dec, [facility] [place] [facility] [address] [id number] [place] [address] Dec, [facility] [place] [facility] [address] [id number] [place] [address] Dec, [facility] [place] [facility] [address] [id number] [place] [address] October, [facility] [place] [facility] [address] [id number] [place] [address] October, [facility] [place] [facility] [address] [id number] [place] [address] October, [facility] [place] [facility] [address] [id number] [place] [address] October, [facility] [place] [facility] [address] [id number] [place] [address] October, [facility] [place] [facility] [address] [id number] [place] [address] October, [facility] [place] [facility] [address] [id number] [place] [address] October, [facility] [place] [facility] [address] [id number] [place] [address] Oct, [facility] [place] [facility] [address] [id number] [place] [address] Oct, [facility] [place] [facility] [address] [id number] [place] [address] Oct, [facility] [address] [id number] [place] [address] 23 Oct, 2012 [facility] [place] [facility] [address] [id number] [place] [address] 19 Oct, 2012 [facility] [place] [facility] [address] [id number] [place] [address] 18 Oct, 2012 [facility] [place] [facility] [address] [id number] [place] [address] 17 Oct, 2012 [facility] [place] [facility] [address] [id number] [place] [address] 15 Oct, 2012 [facility] [address] [id number] [place] [address] Oct, [facility] [place] [facility] [address] [id number] [place] [address] Oct, [facility] [address] [id number] [place] [address] Oct, [facility] [place] [facility] [address] [id number] [place] [address] Oct, [facility] [place] [facility] [address] [id number] [place] [address] Aug, [facility] [place] [facility] [address] [id number] [place] [address] Aug, [facility] [place] [facility] [address] [id number] [place] [address] Aug, [facility] [place] [facility] [address] [id number] [place] [address] Aug, [facility] [place] [facility] [address] [id number] [place] [address] Aug, [facility] [place] [facility] [address] [id number] [place] [address] Aug, [facility] [place] [facility] [address] [id number] [place] [address] Aug, [facility] [place] [facility] [address] [id number] [place] [address] 14 Aug, 2012 [facility] [place] [facility] [address] [id number] [place] [address] 12 Aug, 2012 [facility] [place] [facility] [address] [id number] [place] [address] 11 Aug, 2012 [facility] [place] [facility] [address] [id number] [place] [address] 29 Jul, 2012 [facility] [place] [facility] [address] [id number] [place] [address] 15 Jul, 2012 [facility] [place] [facility] [address] [id number] [place] [address] 08 Jul, 2012 [facility] [place] [facility] [address] [id number] [place] [address] 20 Jun, 2012 [facility] [place] [facility] [address] [id number] [place] [address] 18 Jun, 2012 [facility] [place] [facility] [address] [id number] [place] [address] 18 Jun, 2012 [facility] [place] [facility] [address] [id number] [place] [address] 18 Jun, 2012 [facility] [place] [facility] [address] [id number] [place] [address] 18 Jun, 2012 [facility] [place] [facility] [address] [id number] [place] [address] 14 Jun, 2012 [facility] [place] [facility] [address] [id number] [place] [address] 14 Jun, 2012 [facility] [place] [facility] [address] [id number] [place] [address] 13 Jun, 2012 [facility] [place] [facility] [address] [id number] [place] [address] 13 Jun, 2012 [facility] [place] [facility] [address] [id number] [place] [address] 11 Jun, 2012 [facility] [place] [facility] [address] [id number] [place] [address] 11 Jun, 2012 [facility] [place] [facility] [address] [id number] [place] [address] Jun, [facility] [place] [facility] [address] [id number] [place] [address] Jun, [facility] [place] [facility] [address] [id number] [place] [address] Jun, [facility] [place] [facility] [address] [id number] [place] [address] Jun, [facility] [place] [facility] [address] [id number] [place] [address] Jun, [facility] [place] [facility] [address] [id number] [place] [address] Jun, [facility] [place] [facility] [address] [id number] [place] [address] Jun, [facility] [place] [facility] [address] [id number] [place] [address] Jun, [facility] [place] [facility] [address] [id number] [place] [address] Jun, [facility] [place] [facility] [address] [id number] [place] [address] Jun, [facility] [place] [facility] [address] [id number] [place] [address] Jun, [facility] [place] [facility] [address] [id number] [place] [address] Jun, [facility] [place] [facility] [address] [id number] [place] [address] May, [facility] [place] [facility] [address] [id number] [place] [address] May, [facility] [place] [facility] [address] [id number] [place] [address] May, [facility] [place] [facility] [address] [id number] [place] [address] May, [facility] [place] [facility] [address] [id number] [place] [address] 08 May, 2012 [facility] [place] [facility] [address] [id number] [place] [address] 08 May, 2011 [facility] [place] [facility] [address] [id number] [place] [address] May, [facility] [place] [facility] [address] [id number] [place] [address] May, [facility] [place] [facility] [address] [id number] [place] [address] Apr, [facility] [place] [facility] [address] [id number] [place] [address] Apr, [facility] [place] [facility] [address] [id number] [place] [address] Apr, [facility] [place] [facility] [address] [id number] [place] [address] Apr, [facility] [place] [facility] [address] [id number] [place] [address] Apr, [facility] [place] [facility] [address] [id number] [place] [address] Apr, [facility] [place] [facility] [address] [id number] [place] [address] Apr, [facility] [place] [facility] [address] [id number] [place] [address] Apr, [facility] [place] [facility] [address] [id number] [place] [address] Apr, [facility] [place] [facility] [address] [id number] [place] [address] Apr, [facility] [place] [facility] [address] [id number] [place] [address] Apr, [facility] [place] [facility] [address] [id number] [place] [address] Apr, [facility] [place] [facility] [address] [id number] [place] [address] Mar, [facility] [place] [facility] [address] [id number] [place] [address] 18 Mar, 2011 [facility] [place] [facility] [address] [id number] [place] [address] Mar, [facility] [place] [facility] [address] [id number] [place] [address] Mar, [facility] [place] [facility] [address] [id number] [place] [address] , [place] [id number] Mar, [facility] [place] [facility] [address] [id number] [place] [id number] Mar, [facility] [place] [facility] [address] [id number] [place] [address] Mar, [facility] [place] [facility] [address] [id number] [place] [address] Jan, [facility] [place] [facility] [address] [id number] [place] [address] Jan, [facility] [place] [facility] [address] [id number] [place] [id number] Jan, [facility] [place] [facility] [address] [id number] [place] [address] [id number] Jan, [facility] [place] [facility] [address] [id number] [place] [address] Jan, [facility] [place] [facility] [address] [id number] [place] [address] Jan, [facility] [place] [facility] [address] [id number] [place] [address] Jan, [facility] [place] [facility] [address] [id number] [place] [address] Jan, [facility] [place] [facility] [address] [id number] [place] [address] Jan, [facility] [place] [facility] [address] [id number] [place] [address] Jan, [facility] [place] [facility] [address] [id number] [place] [address] Jan, [facility] [place] [facility] [address] [id number] [place] [address] 28 Jan, 2012 [facility] [place] [facility] [address] [id number] [place] [address] 27 Jan, 2012 [facility] [place] [facility] [address] [id number] [place] [address] Dec, [facility] [place] [facility] [address] [id number] [place] [address] 26 Jan, 2012 [facility] [place] [facility] [address] [id number] [place] [address] 20 Jan, 2012 [facility] [place] [facility] [address] [id number] [place] [address] 19 Jan, 2012 [facility] [place] [facility] [address] [id number] [place] [address] 18 Jan, 2012 [facility] [place] [facility] [address] [id number] [place] [address] 17 Jan, 2012 [facility] [place] [facility] [address] [id number] [place] [address] 16 Jan, 2012 [facility] [place] [facility] [address] [id number] [place] [address] Dec, [facility] [place] [facility] [address] [id number] [place] [address] 13 Jan, 2012 [facility] [place] [facility] [address] [id number] [place] [address] Dec, [facility] [place] [facility] [address] [id number] [place] [address] Dec, [facility] [place] [facility] [address] [id number] [place] [address] Dec, [facility] [place] [facility] [address] [id number] [place] [address] 25 Dec, 2011 [facility] [place] [facility] [address] [id number] [place] [address] 18 Dec, 2011 [facility] [place] [facility] [address] [id number] [place] [address] Dec, [facility] [place] [facility] [address] [id number] [place] [address] Dec, [facility] [place] [facility] [address] [id number] [place] [address] Dec, [facility] [place] [facility] [address] [id number] [place] [address] October, [facility] [place] [facility] [address] [id number] [place] [address] October, [facility] [place] [facility] [address] [id number] [place] [address] October, [facility] [place] [facility] [address] [id number] [place] [address] October, [facility] [place] [facility] [address] [id number] [place] [address] October, [facility] [place] [facility] [address] [id number] [place] [address] October, [facility] [place] [facility] [address] [id number] [place] [address] Oct, [facility] [place] [facility] [address] [id number] [place] [address] Oct, [facility] [place] [facility] [address] [id number] [place] [address] Oct, [facility] [place] [facility] [address] [id number] [place] [address] Oct, [facility] [place] [facility] [address] [id number] [place] [address] Oct, [facility] [place] [facility] [address] [id number] [place] [address] Oct, [facility] [place] [facility] [address] [id number] [place] [address] Oct, [facility] [place] [facility] [address] [id number] [place] [address] Aug, [facility] [place] [facility] [address] [id number] [place] [address] 29 Sep, 2011 [facility] [place] [facility] [address] [id number] [place] [address] Aug, [facility] [place] [facility] [address] [id number] [place] [address] Aug, [facility] [place] [facility] [address] [id number] [place] [address] 05 Sep, 2011 [facility] [place] [facility] [address] [id number] [place] [address] 05 Sep, 2011 [facility] [place] [facility] [address] [id number] [place] [address] Aug, [facility] [place] [facility] [address] [id number] [place] [address] Aug, [facility] [address] [id number] [place] [address] 08 Aug, 2011 [facility] [address] [id number] [place] [address] Jul, [facility] [address] [id number] [place] [address] Jul, [facility] [address] [id number] [place] [address] Jul, [facility] [address] [id number] [place] [address] Jul, [facility] [address] [id number] [place] [address] Jun, [facility] [address] [id number] [place] [address] Jun, [facility] [address] [id number] [place] [address] May, [facility] [address] [id number] [place] [address] May, [facility] [address] [id number] [place] [address] May, [facility] [address] [id number] [place] [address] May, [facility] [address] [id number] [place] [address] May, [facility] [address] [id number] [place] [address] Apr, [facility] [address] [id number] [place] [address] Apr, [facility] [id number] [place] [address] Apr, [facility] [address] [id number] [place] [address] Jan, [facility] [address] [id number] [place] [address] Dec, [facility] [id number] [place] [address] October, [facility] [id number] [place] [address] Jun, [facility] [id number] [place] [address] Apr, [facility] [address] [id number] [place] [address] Apr, [facility] [address] [id number] [place] [address] Apr, [facility] [address] [id number] [place] [address] Jun, IMMUNIZATIONS No Known Immunizations SOCIAL HISTORY [...]
--- OUTSIDE RECORDS SUMMARY | 2020-01-25 13:36 | XMS REPORT ---
Author Author Ana Iraheta Organization [facility] Address [address] [place] [address] Care Team Providers Care Artistic Director Name Role Phone MELISA Iraheta Unavailable PROBLEMS Type Condition ICD9-CM Code [id number] Code Onset Dates Condition S tatus SNOMED Code Problem Chronic hepatitis C without hepatic coma B18.2 Active 924814488 Problem Cannabis abuse F12.10 Active 85620 009 Problem Bipolar 1 disorder F31.9 Active 3 25492290 Problem Attention deficit hyperactivity disorder (ADHD), combi luciano type F90.2 Active 79709820 Problem Attention deficit R41.840 Active 76 809942 Problem Hot flashes due to menopause N95.1 A ctive 133615456 Problem H/O laminectomy Z98.89 Active 1616 00367 Problem Other chronic pain G89.29 Active 8 0214463 Problem Anxiety disorder, unspecified type F41.9 Active 728421814 Problem Bipolar disorder, in partial remission, most rec ent episode hypomanic F31.71 Active 889735677 ALLERGIES No Information ENCOUNTERS Encounter Location Date Diagnosis [facility] [id number] [place] [address] Aug, [facility] [address] [address] Jul, [facility] [address] [address] Jul, [place] [address] [address] Apr, [place] [address] [address] Mar, Hot flashes due to menopause N95.1 ; Anx iety disorder, unspecified type F41.9 ; Low back pain M54.5 and Encounter for immunization Z23 [facility] [address] [address] Dec, Other chronic pain G89.29 and Low back p ain M54.5 [facility] [address] [address] October, [facility] [address] [address] October, [facility] [address] [address] October, [facility] [address] [address] October, Other chronic pain G89.29 and Chronic he patitis C without hepatic coma B18.2 [facility] [address] [address] Aug, Bipolar disorder, in partial remission, most recent episode hypomanic F31.71 ; Attention deficit hyperactivity disorder (ADHD), combined type F90.2 and Anxiety disorder, unspecified type F41.9 [facility] [address] [address] Aug, [place] [address] [address] Aug, Bipolar disorder, in partial remission, most recent episode hypomanic F31.71 [facility] [address] [address] Aug, [facility] [address] [address] Aug, Bipolar disorder, in partial remission, most recent episode hypomanic F31.71 [facility] [place] [address] [address] Aug, Bipolar disorder, in partial remission, most recent episode hypomanic F31.71 ; Attention deficit hyperactivity disorder (ADHD), combined type F90.2 and Anxiety disorder, unspecified type F41.9 [facility] [id number] [place] [address] Aug, Low back pain M54.5 and Pain in left wri st M25.532 [facility] [address] [id number] [place] [address] Aug, [facility] [address] [id number] [place] [address] Jun, [facility] [id number] [place] [address] Apr, Bipolar disorder, in partial remission, most recent episode hypomanic F31.71 [facility] [id number] [place] [address] Apr, [facility] [id number] [place] [address] Apr, Bipolar disorder, in partial remission, most recent episode hypomanic F31.71 ; Attention deficit hyperactivity disorder (ADHD), combined type F90.2 ; Anxiety disorder, unspecified type F41.9 and Other penitentiary (current) drug therapy Z79.899 [facility] [id number] [place] [address] Apr, Bipolar disorder, in partial remission, most recent episode hypomanic F31.71 [facility] [address] [id number] [place] [address] Apr, Bipolar disorder, in partial remission, most recent episode hypomanic F31.71 [facility] [id number] [place] [address] Mar, [facility] [id number] [place] [address] Mar, Bipolar disorder, in partial remission, most recent episode hypomanic F31.71 ; Encounter for immunization Z23 and Low back pain M54.5 [facility] [address] [id number] [place] [address] Mar, Bipolar disorder, in partial remission, most recent episode hypomanic F31.71 [facility] [id number] [place] [address] Mar, Bipolar disorder, in partial remission, most recent episode hypomanic F31.71 [facility] [address] [id number] [place] [address] Jan, Bipolar disorder, in partial remission, most recent episode hypomanic F31.71 [facility] [address] [id number] [place] [address] Jan, Bipolar disorder, in partial remission, most recent episode hypomanic F31.71 [facility] [id number] [place] [address] Dec, Bipolar disorder, in partial remission, most recent episode hypomanic F31.71 [facility] [id number] [place] [address] Dec, Bipolar disorder, in partial remission, most recent episode hypomanic F31.71 ; Attention deficit hyperactivity disorder (ADHD), combined type F90.2 ; Anxiety disorder, unspecified type F41.9 and Other penitentiary (current) drug therapy Z79.899 [facility] [id number] [place] [address] Dec, Bipolar disorder, in partial remission, most recent episode hypomanic F31.71 [facility] [address] [id number] [place] [address] Dec, Bipolar disorder, in partial remission, most recent episode hypomanic F31.71 [facility] [id number] [place] [address] October, Bipolar disorder, in partial remission, most recent episode hypomanic F31.71 [facility] [address] [id number] [place] [address] October, [facility] [address] [id number] [place] [address] October, [facility] [address] [id number] [place] [address] Oct, Bipolar disorder, in partial remission, most recent episode hypomanic F31.71 ; Attention deficit hyperactivity disorder (ADHD), combined type F90.2 ; Anxiety disorder, unspecified type F41.9 and Encounter for drug screening Z02.83 [facility] [id number] [place] [address] Oct, Bipolar disorder, in partial remission, most recent episode hypomanic F31.71 [facility] [id number] [place] [address] Oct, Bipolar disorder, in partial remission, most recent episode hypomanic F31.71 [facility] [id number] [place] [address] Aug, Bipolar disorder, in partial remission, most recent episode hypomanic F31.71 [facility] [id number] [place] [address] Aug, Bipolar disorder, in partial remission, most recent episode hypomanic F31.71 [facility] [id number] [place] [address] Aug, Bipolar disorder, in partial remission, most recent episode hypomanic F31.71 [facility] [id number] [place] [address] Jul, Bipolar disorder, in partial remission, most recent episode hypomanic F31.71 ; Attention deficit hyperactivity disorder (ADHD), combined type F90.2 and Anxiety disorder, unspecified type F41.9 [facility] [id number] [place] [address] Jul, Bipolar disorder, in partial remission, most recent episode hypomanic F31.71 [facility] [id number] [place] [address] Jun, Bipolar disorder, in partial remission, most recent episode hypomanic F31.71 [facility] [id number] [place] [address] May, Bipolar disorder, in partial remission, most recent episode hypomanic F31.71 [facility] [id number] [place] [address] May, Bipolar disorder, in partial remission, most recent episode hypomanic F31.71 [facility] [address] [address] Apr, [facility] [address] [address] Apr, Bipolar disorder, in partial remission, most recent episode hypomanic F31.71 ; Attention deficit hyperactivity disorder (ADHD), combined type F90.2 ; Anxiety disorder, unspecified type F41.9 and Cannabis abuse F12.10 [facility] [address] [address] Apr, Attention deficit hyperactivity disorder (ADHD), combined type F90.2 [place] [address] [address] Mar, Attention deficit hyperactivity disorder (ADHD), combined type F90.2 [place] [address] [address] Mar, Anxiety disorder, unspecified type F41.9 [facility] [address] [address] Jan, Attention deficit hyperactivity disorder (ADHD), combined type F90.2 [facility] [address] [address] Jan, Anxiety disorder, unspecified type F41.9 [place] [address] [address] Jan, Other chronic pain G89.29 ; Chronic hepa titis C without hepatic coma B18.2 and Bipolar 1 disorder F31.9 [facility] [address] [address] Dec, Attention deficit hyperactivity disorder (ADHD), combined type F90.2 [facility] [address] [address] Dec, Bipolar disorder, in partial remission, most recent episode hypomanic F31.71 ; Attention deficit hyperactivity disorder (ADHD), combined type F90.2 and Anxiety disorder, unspecified type F41.9 [place] [id number] [address] Dec, Bipolar disorder, in partial remission, most recent episode hypomanic F31.71 ; Attention deficit hyperactivity disorder (ADHD), combined type F90.2 and Anxiety disorder, unspecified type F41.9 [place] [address] [address] Dec, Bipolar 1 disorder F31.9 and Attention d eficit R41.840 [place] [address] [address] Oct, Other chronic pain G89.29 ; Alopecia L65 .9 and Screening, lipid Z13.220 [place] [address] [address] Oct, [place] [address] [address] Aug, [place] [address] [address] Aug, Eustachian tube dysfunction, right H69.8 1 ; Vertigo R42 and Other chronic pain G89.29 [place] [address] [address] Aug, [place] [address] [address] Jun, [place] [address] [address] Jun, Low back pain M54.5 and Other chronic pa in G89.29 [place] [address] [address] Jun, [place] [address] [address] May, [place] [address] [address] Jan, [facility] [address] [address] Dec, [facility] [address] [address] Dec, [facility] [address] [address] Jun, [facility] [address] [address] Apr, Eustachian tube dysfunction, unspecified laterality H69.80 ; Hot flashes N95.1 and Encounter for immunization Z23 [facility] [address] [address] Jan, [facility] [address] [address] Jan, [facility] [address] [address] Jan, [facility] [address] [address] Jan, [facility] [address] [address] Jan, Encounter to establish care V65.8 ; Bipo lar 1 disorder 296.7 ; Abdominal pain 789.00 ; Constipation 564.00 ; Hard of hearing 389.9 and Drug abuse 305.90 [facility] [address] [address] Dec, [facility] [address] [address] October, [facility] [address] [address] October, [facility] [address] [address] Oct, [facility] [address] [address] Oct, [facility] [place] [facility] [address] [id number] [place] [address] Oct, [facility] [place] [facility] [address] [id number] [place] [address] Aug, [facility] [place] [facility] [address] [id number] [place] [address] Aug, [facility] [place] [facility] [address] [id number] [place] [address] Aug, [facility] [place] [facility] [address] [id number] [place] [address] Aug, 2014 [facility] [place] [facility] [address] [id number] [place] [address] Aug, 2014 [facility] [place] [facility] [address] [id number] [place] [address] Aug, 2014 [facility] [place] [facility] [address] [id number] [place] [address] Aug, 2014 [facility] [place] [facility] [address] [id number] [place] [address] Aug, 2014 [facility] [place] [facility] [address] [id number] [place] [address] Aug, 2014 [facility] [place] [facility] [address] [id number] [place] [address] Aug, 2014 [facility] [place] [facility] [address] [id number] [place] [address] Aug, 2014 [facility] [place] [facility] [address] [id number] [place] [address] Aug, 2014 [facility] [place] [facility] [address] [id number] [place] [address] Aug, 2014 [facility] [place] [facility] [address] [id number] [place] [address] Aug, 2014 [facility] [place] [facility] [address] [id number] [place] [address] Aug, 2014 [facility] [place] [facility] [address] [id number] [place] [address] Jul, [facility] [place] [facility] [address] [id number] [place] [address] Jul, [facility] [place] [facility] [address] [id number] [place] [address] Jul, [facility] [place] [facility] [address] [id number] [place] [address] Jul, [facility] [place] [facility] [address] [id number] [place] [address] Jul, [facility] [place] [facility] [address] [id number] [place] [address] Jul, [facility] [place] [facility] [address] [id number] [place] [address] Jul, [facility] [place] [facility] [address] [id number] [place] [address] Jul, [facility] [place] [facility] [address] [id number] [place] [address] Jun, [facility] [place] [facility] [address] [id number] [place] [address] Jun, [facility] [place] [facility] [address] [id number] [place] [address] Jun, [facility] [place] [facility] [address] [id number] [place] [address] 29 Jun, 2014 [facility] [place] [facility] [address] [id number] [place] [address] 18 Jun, 2014 [facility] [place] [facility] [address] [id number] [place] [address] 15 Jun, 2014 [facility] [place] [facility] [address] [id number] [place] [address] 15 Jun, 2014 [facility] [place] [facility] [address] [id number] [place] [address] Jun, [facility] [place] [facility] [address] [id number] [place] [address] Jun, [facility] [place] [facility] [address] [id number] [place] [address] Jun, [facility] [place] [facility] [address] [id number] [place] [address] Jun, [facility] [place] [facility] [address] [id number] [place] [address] May, [facility] [place] [facility] [address] [id number] [place] [address] May, [facility] [place] [facility] [address] [id number] [place] [address] May, [facility] [place] [facility] [address] [id number] [place] [address] May, [facility] [place] [facility] [address] [id number] [place] [address] May, [facility] [place] [facility] [id number] [place] [address] May, [facility] [place] [facility] [address] [id number] [place] [address] May, [facility] [place] [facility] [address] [id number] [place] [address] Apr, [facility] [place] [facility] [address] [id number] [place] [address] Apr, [facility] [place] [facility] [id number] [place] [address] Apr, [facility] [place] [facility] [address] [id number] [place] [address] Apr, [facility] [place] [facility] [address] [id number] [place] [address] Apr, [facility] [place] [facility] [id number] [place] [address] Apr, [facility] [place] [facility] [address] [id number] [place] [address] Mar, [facility] [place] [facility] [address] [id number] [place] [address] Mar, 2013 [facility] [place] [facility] [address] [facility] [id number] [facility] [place] [address] Mar, [facility] [place] [facility] [address] [facility] [id number] [facility] [place] [address] Mar, [facility] [place] [facility] [address] [id number] [place] [address] Mar, [facility] [place] [facility] [address] [id number] [place] [address] Mar, [facility] [place] [facility] [address] [facility] [id number] [place] [address] Jan, [facility] [place] [facility] [address] [id number] [place] [address] Jan, [facility] [place] [facility] [address] [id number] [place] [address] Jan, [facility] [place] [facility] [address] [id number] [place] [address] Jan, [facility] [place] [facility] [address] [id number] [place] [address] Dec, [facility] [place] [facility] [address] [id number] [place] [address] Dec, [facility] [place] [facility] [address] [id number] [place] [address] Dec, [facility] [place] [facility] [address] [id number] [place] [address] Dec, [facility] [place] [facility] [address] [id number] [place] [address] Dec, [facility] [place] [facility] [address] [id number] [place] [address] Dec, [facility] [place] [facility] [address] [id number] [place] [address] Dec, [facility] [place] [facility] [address] [id number] [place] [address] Dec, [facility] [place] [facility] [address] [id number] [place] [address] Dec, [facility] [place] [facility] [address] [id number] [place] [address] Dec, [facility] [place] [facility] [address] [id number] [place] [address] Dec, [facility] [place] [facility] [address] [id number] [place] [address] Dec, [facility] [place] [facility] [address] [id number] [place] [address] October, [facility] [place] [facility] [address] [id number] [place] [address] October, [facility] [place] [facility] [address] [id number] [place] [address] October, [facility] [place] [facility] [address] [id number] [place] [address] October, [facility] [place] [facility] [address] [id number] [place] [address] October, [facility] [place] [facility] [address] [id number] [place] [address] October, [facility] [address] [id number] [place] [address] Oct, [facility] [address] [id number] [place] [address] Oct, [facility] [address] [id number] [place] [address] Oct, [facility] [address] [id number] [place] [address] Oct, [facility] [address] [id number] [place] [address] Oct, [facility] [address] [id number] [place] [address] Oct, [facility] [address] [id number] [place] [address] Oct, [facility] [address] [id number] [place] [address] Oct, [facility] [address] [id number] [place] [address] Oct, [facility] [address] [id number] [place] [address] Oct, [facility] [address] [id number] [place] [address] Oct, [facility] [address] [id number] [place] [address] Oct, [facility] [address] [id number] [place] [address] Aug, [facility] [address] [id number] [place] [address] Aug, [facility] [address] [id number] [place] [address] Aug, [facility] [address] [id number] [place] [address] Aug, [facility] [address] [id number] [place] [address] Aug, [facility] [address] [id number] [place] [address] Aug, [facility] [address] [id number] [place] [address] Aug, [facility] [address] [id number] [place] [address] Aug, [facility] [address] [id number] [place] [address] Aug, [facility] [address] [id number] [place] [address] Aug, [facility] [address] [id number] [place] [address] Aug, [facility] [address] [id number] [place] [address] Aug, [facility] [address] [id number] [place] [address] Aug, [facility] [address] [id number] [place] [address] 20 Aug, 2013 [facility] [address] [id number] [place] [address] Aug, [facility] [address] [id number] [place] [address] Aug, [facility] [address] [id number] [place] [address] Aug, [facility] [address] [id number] [place] [address] Aug, [facility] [address] [id number] [place] [address] Aug, [facility] [address] [id number] [place] [address] 07 Aug, 2013 [facility] [address] [id number] [place] [address] Aug, [facility] [address] [id number] [place] [address] Aug, [facility] [address] [id number] [place] [address] Aug, [facility] [address] [id number] [place] [address] Aug, [facility] [address] [id number] [place] [address] Aug, [facility] [facility] [address] [id number] [place] [address] Jul, [facility] [facility] [address] [id number] [place] [address] Jul, [facility] [place] [facility] [address] [id number] [place] [address] Jul, [facility] [place] [facility] [address] [id number] [place] [address] Jul, [facility] [place] [facility] [address] [id number] [place] [address] Jul, [facility] [place] [facility] [address] [id number] [place] [address] Jul, [facility] [place] [facility] [address] [id number] [place] [address] Jul, [facility] [address] [facility] [id number] [place] [address] Jul, [facility] [place] [facility] [address] [id number] [place] [address] Jul, [facility] [place] [facility] [address] [id number] [place] [address] Jul, [facility] [place] [facility] [address] [id number] [place] [address] Jul, [facility] [place] [facility] [address] [id number] [place] [address] Jul, [facility] [place] [facility] [address] [id number] [place] [address] Jul, [facility] [place] [facility] [address] [id number] [place] [address] Jul, [facility] [address] [id number] [place] [address] Jul, [facility] [address] [id number] [place] [address] Jul, [facility] [place] [facility] [address] [id number] [place] [address] Jul, [facility] [place] [facility] [address] [id number] [place] [address] Jul, [facility] [facility] [address] [id number] [place] [address] Jul, [facility] [facility] [address] [id number] [place] [address] Jul, [facility] [facility] [address] [facility] [id number] [place] [address] Jun, [facility] [facility] [address] [id number] [place] [address] Jun, [facility] [facility] [address] [id number] [place] [address] Jun, [facility] [address] [id number] [place] [address] Jun, [facility] [address] [id number] [place] [address] Jun, [facility] [facility] [address] [id number] [place] [address] Jun, [facility] [address] [id number] [place] [address] Jun, [facility] [address] [id number] [place] [address] Jun, [facility] [facility] [address] [id number] [place] [address] Jun, [facility] [facility] [address] [id number] [place] [address] Jun, [facility] [address] [id number] [place] [address] Jun, [facility] [address] [id number] [place] [address] Jun, [facility] [address] [id number] [place] [address] Jun, [facility] [address] [id number] [place] [address] Jun, [facility] [facility] [address] [id number] [place] [address] Jun, [facility] [address] [id number] [place] [address] Jun, [facility] [address] [id number] [place] [address] 18 Jun, 2013 [facility] [address] [id number] [place] [address] 17 Jun, 2013 [facility] [address] [id number] [place] [address] 17 Jun, 2013 [facility] [address] [id number] [place] [address] 13 Jun, 2013 [facility] [address] [id number] [place] [address] 12 Jun, 2013 [facility] [address] [id number] [place] [address] 12 Jun, 2013 [facility] [address] [id number] [place] [address] Jun, [facility] [address] [id number] [place] [address] 05 Jun, 2013 [facility] [address] [id number] [place] [address] 05 Jun, 2013 [facility] [address] [id number] [place] [address] Jun, [facility] [address] [id number] [place] [address] Jun, [facility] [address] [id number] [place] [address] May, [facility] [address] [id number] [place] [address] May, [facility] [address] [id number] [place] [address] May, [facility] [address] [id number] [place] [address] May, [facility] [address] [id number] [place] [address] May, [facility] [address] [id number] [place] [address] 05 May, 2013 [facility] [address] [id number] [place] [address] 30 Apr, 2012 [facility] [address] [id number] [place] [address] Apr, 2012 [facility] [address] [id number] [place] [address] Apr, 2012 [facility] [address] [id number] [place] [address] Apr, 2012 [facility] [address] [id number] [place] [address] Apr, 2012 [facility] [address] [id number] [place] [address] Apr, 2012 [facility] [address] [id number] [place] [address] 15 Apr, 2013 [facility] [address] [id number] [place] [address] Apr, 2012 [facility] [address] [id number] [place] [address] 26 Sep, 2012 [facility] [address] [id number] [place] [address] 24 Sep, 2012 [facility] [address] [id number] [place] [address] 17 Sep, 2012 [facility] [address] [id number] [place] [address] 17 Sep, 2012 [facility] [address] [id number] [place] [address] 11 Sep, 2012 [facility] [address] [id number] [place] [address] 10 Sep, 2012 [facility] [address] [id number] [place] [address] 05 Sep, 2012 [facility] [address] [id number] [place] [address] 04 Sep, 2012 [facility] [address] [id number] [facility] [place] [address] Jan, [facility] [address] [id number] [place] [address] Jan, [facility] [address] [facility] [id number] [facility] [place] [address] 14 Jan, 2013 [facility] [address] [id number] [facility] [place] [address] Jan, [facility] [address] [facility] [id number] [place] [address] Jan, [facility] [address] [facility] [id number] [place] [address] Jan, [facility] [address] [facility] [id number] [place] [address] 31 Dec, 2012 [facility] [address] [id number] [facility] [place] [address] 24 Dec, 2012 [facility] [address] [id number] [facility] [place] [address] Dec, [facility] [address] [facility] [id number] [facility] [place] [address] Dec, [facility] [address] [id number] [facility] [place] [address] 18 Dec, 2012 [facility] [address] [id number] [facility] [place] [address] 17 Dec, 2012 [facility] [address] [id number] [facility] [place] [address] 16 Dec, 2012 [facility] [address] [facility] [id number] [place] [address] 16 Dec, 2012 [facility] [address] [id number] [facility] [place] [address] 15 Dec, 2012 [facility] [address] [facility] [id number] [facility] [place] [address] 10 Dec, 2012 [facility] [address] [id number] [facility] [place] [address] Dec, [facility] [address] [id number] [place] [address] Dec, [facility] [address] [id number] [place] [address] Dec, [facility] [address] [id number] [place] [address] Dec, [facility] [address] [id number] [place] [address] Dec, [facility] [address] [id number] [place] [address] Dec, [facility] [address] [id number] [place] [address] October, [facility] [address] [id number] [place] [address] October, [facility] [address] [id number] [place] [address] October, [facility] [address] [id number] [place] [address] October, [facility] [address] [id number] [place] [address] October, [facility] [address] [id number] [place] [address] October, [facility] [address] [id number] [place] [address] October, [facility] [address] [id number] [place] [address] Oct, [facility] [address] [id number] [place] [address] Oct, [facility] [facility] [address] [id number] [place] [address] 24 Oct, 2012 [facility] [address] [id number] [place] [address] Oct, [facility] [address] [id number] [place] [address] Oct, [facility] [address] [id number] [place] [address] 18 Oct, 2012 [facility] [address] [id number] [place] [address] 17 Oct, 2012 [facility] [address] [id number] [place] [address] 15 Oct, 2012 [facility] [address] [id number] [place] [address] 12 Oct, 2012 [facility] [address] [facility] [id number] [place] [address] Oct, [facility] [address] [id number] [place] [address] Oct, [facility] [address] [id number] [place] [address] Oct, [facility] [address] [id number] [place] [address] Aug, [facility] [address] [id number] [place] [address] Aug, [facility] [address] [id number] [place] [address] Aug, [facility] [address] [id number] [place] [address] 06 Aug, 2012 [facility] [address] [id number] [place] [address] 05 Aug, 2012 [facility] [address] [id number] [place] [address] 05 Aug, 2012 [facility] [address] [id number] [place] [address] 20 Aug, 2012 [facility] [address] [id number] [place] [address] 14 Aug, 2012 [facility] [address] [id number] [place] [address] 12 Aug, 2012 [facility] [address] [id number] [place] [address] 11 Aug, 2012 [facility] [address] [id number] [place] [address] Jul, [facility] [address] [id number] [place] [address] 15 Jul, 2012 [facility] [address] [id number] [place] [address] 08 Jul, 2012 [facility] [address] [id number] [place] [address] 20 Jun, 2012 [facility] [facility] [address] [id number] [place] [address] 18 Jun, 2012 [facility] [facility] [address] [id number] [place] [address] 18 Jun, 2012 [facility] [address] [id number] [place] [address] 18 Jun, 2012 [facility] [address] [id number] [place] [address] 18 Jun, 2012 [facility] [facility] [address] [id number] [place] [address] 14 Jun, 2012 [facility] [facility] [address] [id number] [place] [address] 14 Jun, 2012 [facility] [facility] [address] [id number] [place] [address] 13 Jun, 2012 [facility] [facility] [address] [id number] [place] [address] 13 Jun, 2012 [facility] [place] [facility] [address] [id number] [place] [address] 11 Jun, 2012 [facility] [place] [facility] [address] [id number] [place] [address] 11 Jun, 2012 [facility] [place] [facility] [address] [id number] [place] [address] 11 Jun, 2012 [facility] [place] [facility] [address] [id number] [place] [address] 11 Jun, 2012 [facility] [place] [facility] [address] [id number] [place] [address] Jun, [facility] [place] [facility] [address] [id number] [place] [address] Jun, [facility] [place] [facility] [address] [id number] [place] [address] Jun, [facility] [place] [facility] [address] [id number] [place] [address] Jun, [facility] [place] [facility] [address] [id number] [place] [address] Jun, [facility] [place] [facility] [address] [id number] [place] [address] Jun, [facility] [place] [facility] [address] [id number] [place] [address] Jun, [facility] [place] [facility] [address] [id number] [place] [address] Jun, [facility] [place] [facility] [address] [id number] [place] [address] Jun, [facility] [place] [facility] [address] [id number] [place] [address] Jun, [facility] [place] [facility] [address] [id number] [place] [address] May, [facility] [place] [facility] [address] [id number] [place] [address] May, [facility] [place] [facility] [address] [id number] [place] [address] May, [facility] [place] [facility] [address] [id number] [place] [address] May, [facility] [place] [facility] [address] [id number] [place] [address] May, [facility] [place] [facility] [address] [id number] [place] [address] May, [facility] [place] [facility] [address] [id number] [place] [address] May, [facility] [place] [facility] [address] [id number] [place] [address] May, 2011 [facility] [place] [facility] [address] [id number] [place] [address] Apr, [facility] [place] [facility] [address] [id number] [place] [address] Apr, [facility] [place] [facility] [address] [id number] [place] [address] Apr, [facility] [place] [facility] [address] [id number] [place] [address] Apr, [facility] [place] [facility] [address] [id number] [place] [address] Apr, [facility] [place] [facility] [address] [id number] [place] [address] Apr, [facility] [place] [facility] [address] [id number] [place] [address] Apr, [facility] [place] [facility] [address] [id number] [place] [address] Apr, [facility] [place] [facility] [address] [id number] [place] [address] Apr, [facility] [place] [facility] [address] [id number] [place] [address] 08 Apr, 2012 [facility] [place] [facility] [address] [id number] [place] [address] 04 Apr, 2012 [facility] [place] [facility] [address] [id number] [place] [address] 02 Apr, 2012 [facility] [place] [facility] [address] [id number] [place] [address] 19 Sep, 2011 [facility] [place] [facility] [address] [id number] [place] [address] 18 Sep, 2011 [facility] [place] [facility] [address] [id number] [place] [address] 12 Mar, 2011 [facility] [place] [facility] [address] [id number] [place] [address] Mar, [facility] [facility] [address] [id number] [place] [id number] Mar, [facility] [place] [facility] [address] [id number] [place] [id number] Mar, [facility] [place] [address] [id number] [place] [address] Mar, [facility] [address] [id number] [place] [address] Jan, [facility] [address] [id number] [place] [address] Jan, [facility] [address] [id number] [place] [id number] Jan, [facility] [address] [id number] [place] [id number] Jan, [facility] [address] [id number] [place] [address] Jan, [facility] [address] [id number] [place] [address] Jan, [facility] [address] [id number] [place] [address] Jan, [facility] [address] [id number] [place] [address] Jan, [facility] [address] [id number] [place] [address] Jan, [facility] [address] [id number] [place] [address] Jan, [facility] [address] [id number] [place] [address] Jan, [facility] [address] [id number] [place] [address] Dec, [facility] [address] [id number] [place] [address] Dec, [facility] [address] [id number] [place] [address] 26 Dec, 2011 [facility] [address] [id number] [place] [address] 26 Jan, 2012 [facility] [address] [id number] [place] [address] 20 Jan, 2012 [facility] [address] [id number] [place] [address] 19 Jan, 2012 [facility] [address] [id number] [place] [address] 18 Dec, 2011 [facility] [address] [facility] [id number] [place] [address] 17 Jan, 2012 [facility] [address] [id number] [place] [address] 16 Jan, 2012 [facility] [address] [id number] [place] [address] 13 Jan, 2012 [facility] [address] [id number] [place] [address] 13 Jan, 2012 [facility] [address] [id number] [place] [address] Dec, [facility] [address] [id number] [place] [address] Dec, [facility] [address] [id number] [place] [address] 27 Dec, 2011 [facility] [address] [id number] [place] [address] 25 Dec, 2011 [facility] [address] [id number] [place] [address] 18 Dec, 2011 [facility] [address] [id number] [place] [address] 15 Dec, 2011 [facility] [address] [id number] [place] [address] 06 Dec, 2011 [facility] [address] [id number] [place] [address] Dec, [facility] [address] [id number] [place] [address] October, [facility] [address] [id number] [place] [address] October, [facility] [address] [id number] [place] [address] October, [facility] [address] [id number] [place] [address] October, [facility] [address] [id number] [place] [address] October, [facility] [address] [id number] [place] [address] October, [facility] [address] [id number] [place] [address] Oct, [facility] [address] [id number] [place] [address] Oct, [facility] [address] [id number] [place] [address] Oct, [facility] [address] [id number] [place] [address] Oct, [facility] [address] [id number] [place] [address] Oct, [facility] [address] [id number] [place] [address] Oct, [facility] [address] [id number] [place] [address] Oct, [facility] [address] [id number] [place] [address] Aug, [facility] [address] [id number] [place] [address] Aug, [facility] [address] [id number] [place] [address] Aug, [facility] [address] [id number] [place] [address] 13 Sep, 2011 [facility] [address] [id number] [facility] [place] [address] Aug, [facility] [address] [id number] [facility] [place] [address] 05 Sep, 2011 [facility] [address] [id number] [facility] [place] [address] 27 Aug, 2011 [facility] [address] [id number] [facility] [place] [address] Aug, [facility] [address] [id number] [facility] [place] [address] 08 Aug, 2011 [facility] [address] [id number] [place] [address] Jul, [facility] [address] [id number] [place] [address] Jul, [facility] [address] [id number] [place] [address] Jul, [facility] [address] [id number] [place] [address] Jul, [facility] [address] [id number] [place] [address] Jun, [facility] [address] [id number] [place] [address] Jun, [facility] [address] [id number] [place] [address] May, [facility] [address] [id number] [place] [address] May, [facility] [address] [id number] [place] [address] May, [facility] [address] [id number] [place] [address] May, [facility] [address] [id number] [place] [address] May, [facility] [address] [id number] [place] [address] Apr, [facility] [address] [id number] [place] [address] Apr, [facility] [address] [id number] [place] [address] Apr, [facility] [address] [id number] [place] [address] Jan, [facility] [id number] [place] [address] Dec, [facility] [facility] [address] [id number] [place] [address] October, [facility] [address] [id number] [place] [address] Jun, [facility] [address] [id number] [place] [address] Apr, [facility] [address] [id number] [place] [address] Apr, [facility] [address] [id number] [place] [address] Apr, [facility] [address] [id number] [place] [address] Jun, IMMUNIZATIONS No Known Immunizations SOCIAL HISTORY [...]
--- OUTSIDE RECORDS SUMMARY | 2020-01-25 13:36 | XMS REPORT ---
Author Author Quang Mayereen Doctor Organization [facility] Address Unknown Phone Unavailable Care Team Providers Care District Fire Management Officer Name Role Phone Migration, Doctor Unavailable Unavailable PROBLEMS Type Condition ICD9-CM Code SCC86-HB Code Onset Dates Condition S tatus SNOMED Code Problem Chronic hepatitis C without hepatic coma B18.2 Active 054095062 Problem Cannabis abuse F12.10 Active 29310 009 Problem Bipolar 1 disorder F31.9 Active 3 21035614 Problem Attention deficit hyperactivity disorder (ADHD), combi luciano type F90.2 Active 98291064 Problem Attention deficit R41.840 Active 76 893116 Problem Hot flashes due to menopause N95.1 A ctive 796292038 Problem H/O laminectomy Z98.89 Active 1616 68921 Problem Other chronic pain G89.29 Active 8 2547779 Problem Anxiety disorder, unspecified type F41.9 Active 299526552 Problem Bipolar disorder, in partial remission, most rec ent episode hypomanic F31.71 Active 473489894 ALLERGIES No Information ENCOUNTERS Encounter Location Date Diagnosis [place] [address] [address] Aug, [facility] [address] [address] Jul, [place] [address] [address] Jul, [facility] [address] [address] Apr, [place] [address] [address] Mar, Hot flashes due to menopause N95.1 ; Anx iety disorder, unspecified type F41.9 ; Low back pain M54.5 and Encounter for immunization Z23 [place] [address] [address] Dec, Other chronic pain G89.29 and Low back p ain M54.5 [facility] [address] [address] October, [facility] [address] [address] October, [facility] [address] [address] October, [facility] [address] [address] October, Other chronic pain G89.29 and Chronic he patitis C without hepatic coma B18.2 [facility] [address] [address] Aug, Bipolar disorder, in partial remission, most recent episode hypomanic F31.71 ; Attention deficit hyperactivity disorder (ADHD), combined type F90.2 and Anxiety disorder, unspecified type F41.9 [facility] [address] [address] Aug, [facility] [address] [address] Aug, Bipolar disorder, in partial remission, most recent episode hypomanic F31.71 [facility] [address] [address] 14 Aug, 2018 [facility] [address] [address] Aug, Bipolar disorder, in partial remission, most recent episode hypomanic F31.71 [facility] [address] [address] Aug, Bipolar disorder, in partial remission, most recent episode hypomanic F31.71 ; Attention deficit hyperactivity disorder (ADHD), combined type F90.2 and Anxiety disorder, unspecified type F41.9 [facility] [address] [address] Aug, Low back pain M54.5 and Pain in left wri st M25.532 [facility] [address] [address] Aug, [facility] [address] [address] Jun, [facility] [address] [address] Apr, Bipolar disorder, in partial remission, most recent episode hypomanic F31.71 [facility] [address] [address] Apr, [place] [address] [address] Apr, Bipolar disorder, in partial remission, most recent episode hypomanic F31.71 ; Attention deficit hyperactivity disorder (ADHD), combined type F90.2 ; Anxiety disorder, unspecified type F41.9 and Other meterman (current) drug therapy Z79.899 [place] [address] [address] Apr, Bipolar disorder, in partial remission, most recent episode hypomanic F31.71 [place] [address] [address] Apr, Bipolar disorder, in partial remission, most recent episode hypomanic F31.71 [place] [address] [address] Mar, [place] [address] [address] Mar, Bipolar disorder, in partial remission, most recent episode hypomanic F31.71 ; Encounter for immunization Z23 and Low back pain M54.5 [facility] [address] [address] 17 Mar, 2018 Bipolar disorder, in partial remission, most recent episode hypomanic F31.71 [facility] [address] [address] Mar, Bipolar disorder, in partial remission, most recent episode hypomanic F31.71 [facility] [address] [id number] [place] [address] Jan, Bipolar disorder, in partial remission, most recent episode hypomanic F31.71 [facility] [address] [id number] [place] [address] Jan, Bipolar disorder, in partial remission, most recent episode hypomanic F31.71 [facility] [address] [id number] [place] [address] Dec, Bipolar disorder, in partial remission, most recent episode hypomanic F31.71 [facility] [address] [id number] [place] [address] Dec, Bipolar disorder, in partial remission, most recent episode hypomanic F31.71 ; Attention deficit hyperactivity disorder (ADHD), combined type F90.2 ; Anxiety disorder, unspecified type F41.9 and Other snf (current) drug therapy Z79.899 [facility] [address] [place] [id number] [place] [address] Dec, Bipolar disorder, in partial remission, most recent episode hypomanic F31.71 [facility] [address] [id number] [place] [address] Dec, Bipolar disorder, in partial remission, most recent episode hypomanic F31.71 [facility] [address] [id number] [place] [address] October, Bipolar disorder, in partial remission, most recent episode hypomanic F31.71 [facility] [address] [id number] [place] [address] October, [facility] [address] [id number] [place] [address] October, [facility] [address] [id number] [place] [address] Oct, Bipolar disorder, in partial remission, most recent episode hypomanic F31.71 ; Attention deficit hyperactivity disorder (ADHD), combined type F90.2 ; Anxiety disorder, unspecified type F41.9 and Encounter for drug screening Z02.83 [facility] [address] [place] [id number] [place] [address] Oct, Bipolar disorder, in partial remission, most recent episode hypomanic F31.71 [facility] [address] [place] [id number] [place] [address] Oct, Bipolar disorder, in partial remission, most recent episode hypomanic F31.71 [facility] [address] [address] Aug, Bipolar disorder, in partial remission, most recent episode hypomanic F31.71 [facility] [address] [address] Aug, Bipolar disorder, in partial remission, most recent episode hypomanic F31.71 [facility] [address] [address] Aug, Bipolar disorder, in partial remission, most recent episode hypomanic F31.71 [facility] [address] [place] [id number] [place] [address] Jul, Bipolar disorder, in partial remission, most recent episode hypomanic F31.71 ; Attention deficit hyperactivity disorder (ADHD), combined type F90.2 and Anxiety disorder, unspecified type F41.9 [facility] [address] [place] [id number] [place] [address] Jul, Bipolar disorder, in partial remission, most recent episode hypomanic F31.71 [facility] [address] [place] [id number] [place] [address] Jun, Bipolar disorder, in partial remission, most recent episode hypomanic F31.71 [facility] [address] [place] [id number] [place] [address] May, Bipolar disorder, in partial remission, most recent episode hypomanic F31.71 [facility] [address] [place] [id number] [place] [address] May, Bipolar disorder, in partial remission, most recent episode hypomanic F31.71 [place] [address] [address] Apr, [place] [address] [address] Apr, Bipolar disorder, in partial remission, most recent episode hypomanic F31.71 ; Attention deficit hyperactivity disorder (ADHD), combined type F90.2 ; Anxiety disorder, unspecified type F41.9 and Cannabis abuse F12.10 [place] [address] [address] Apr, Attention deficit hyperactivity disorder (ADHD), combined type F90.2 [place] [address] [address] Mar, Attention deficit hyperactivity disorder (ADHD), combined type F90.2 [place] [address] [address] 14 Mar, 2017 Anxiety disorder, unspecified type F41.9 [place] [address] [address] Jan, Attention deficit hyperactivity disorder (ADHD), combined type F90.[address] [address] Jan, Anxiety disorder, unspecified type F41.[address] [address] Jan, Other chronic pain G89.29 ; Chronic hepa titis C without hepatic coma B18.2 and Bipolar 1 disorder F31.9 [place] [address] [address] Dec, Attention deficit hyperactivity disorder (ADHD), combined type F90.2 [place] [address] [address] Dec, Bipolar disorder, in partial remission, most recent episode hypomanic F31.71 ; Attention deficit hyperactivity disorder (ADHD), combined type F90.2 and Anxiety disorder, unspecified type F41.9 [place] [address] [address] Dec, Bipolar disorder, in partial remission, most recent episode hypomanic F31.71 ; Attention deficit hyperactivity disorder (ADHD), combined type F90.2 and Anxiety disorder, unspecified type F41.9 [place] [address] [address] Dec, Bipolar 1 disorder F31.9 and Attention d eficit R41.840 [place] [address] [address] Oct, Other chronic pain G89.29 ; Alopecia L65 .9 and Screening, lipid Z13.220 [place] [address] [address] Oct, [place] [address] [address] Aug, [place] [address] [address] Aug, Eustachian tube dysfunction, right H69.8 1 ; Vertigo R42 and Other chronic pain G89.29 [place] [address] [address] Aug, [place] [address] [address] Jun, [place] [address] [address] Jun, Low back pain M54.5 and Other chronic pa in G89.29 [place] [address] [address] Jun, [place] [address] [address] May, [place] [address] [address] Jan, [place] [address] [address] Dec, [facility] [address] [address] Dec, [facility] [address] [address] Jun, [facility] [address] [address] Apr, Eustachian tube dysfunction, unspecified laterality H69.80 ; Hot flashes N95.1 and Encounter for immunization Z23 [facility] [address] [address] Jan, [facility] [address] [address] Jan, [facility] [address] [address] Jan, [facility] [address] [address] Jan, [facility] [address] [address] Jan, Encounter to establish care V65.8 ; Bipo lar 1 disorder 296.7 ; Abdominal pain 789.00 ; Constipation 564.00 ; Hard of hearing 389.9 and Drug abuse 305.90 [facility] [address] [address] Dec, [facility] [address] [address] October, [facility] [address] [address] October, [facility] [address] [address] Oct, [facility] [address] [address] Oct, [facility] [address] [address] Oct, [facility] [place] [facility] [address] [id number] [place] [address] Aug, [facility] [place] [facility] [address] [id number] [place] [address] Aug, [facility] [place] [facility] [address] [id number] [place] [address] Aug, [facility] [place] [facility] [address] [id number] [place] [address] Aug, 2014 [facility] [place] [facility] [address] [id number] [place] [address] Aug, 2014 [facility] [place] [facility] [address] [id number] [place] [address] Aug, 2014 [facility] [place] [facility] [address] [id number] [place] [address] Aug, 2014 [facility] [place] [facility] [address] [id number] [place] [address] Aug, 2014 [facility] [place] [facility] [address] [id number] [place] [address] Aug, 2014 [facility] [place] [facility] [address] [id number] [place] [address] Aug, 2014 [facility] [place] [facility] [address] [id number] [place] [address] Aug, 2014 [facility] [place] [facility] [address] [id number] [place] [address] Aug, 2014 [facility] [place] [facility] [address] [id number] [place] [address] Aug, 2014 [facility] [place] [facility] [address] [id number] [place] [address] Aug, 2014 [facility] [place] [facility] [address] [id number] [place] [address] Aug, 2014 [facility] [place] [facility] [address] [id number] [place] [address] Jul, [facility] [place] [facility] [address] [id number] [place] [address] Jul, [facility] [place] [facility] [address] [facility] [id number] [place] [address] Jul, [facility] [place] [facility] [address] [id number] [place] [address] Jul, [facility] [place] [facility] [address] [id number] [place] [address] Jul, [facility] [place] [facility] [address] [id number] [place] [address] Jul, [facility] [place] [facility] [address] [id number] [place] [address] Jul, [facility] [place] [facility] [address] [id number] [place] [address] Jul, [facility] [place] [facility] [address] [id number] [place] [address] Jun, [facility] [place] [facility] [address] [id number] [place] [address] Jun, [facility] [place] [facility] [address] [id number] [place] [address] Jun, [facility] [place] [facility] [address] [id number] [place] [address] Jun, [facility] [place] [facility] [address] [id number] [place] [address] Jun, [facility] [place] [facility] [address] [id number] [place] [address] 15 Jun, 2014 [facility] [place] [facility] [address] [id number] [place] [address] 15 Jun, 2014 [facility] [place] [facility] [address] [id number] [place] [address] Jun, [facility] [place] [facility] [address] [id number] [place] [address] Jun, [facility] [place] [facility] [address] [id number] [place] [address] Jun, [facility] [place] [facility] [address] [id number] [place] [address] Jun, [facility] [place] [facility] [address] [id number] [place] [address] May, [facility] [place] [facility] [address] [id number] [place] [address] May, [facility] [place] [facility] [address] [id number] [place] [address] May, [facility] [place] [facility] [address] [id number] [place] [address] May, [facility] [place] [facility] [address] [id number] [place] [address] May, [facility] [place] [facility] [address] [id number] [place] [address] May, [facility] [place] [facility] [address] [place] [id number] [place] [address] May, [facility] [place] [facility] [address] [id number] [place] [address] Apr, [facility] [place] [facility] [address] [id number] [place] [address] Apr, [facility] [place] [facility] [address] [id number] [place] [address] Apr, [facility] [place] [facility] [address] [id number] [place] [address] Apr, [facility] [place] [facility] [address] [id number] [place] [address] Apr, [facility] [place] [facility] [address] [id number] [place] [address] Apr, [facility] [place] [facility] [address] [place] [id number] [place] [address] Mar, [facility] [place] [facility] [address] [id number] [place] [address] 29 Mar, 2014 [facility] [place] [facility] [address] [id number] [place] [address] Mar, [facility] [place] [facility] [address] [facility] [id number] [place] [address] Mar, [facility] [place] [facility] [address] [facility] [id number] [facility] [address] Mar, [facility] [place] [facility] [address] [id number] [place] [address] Mar, [facility] [place] [facility] [address] [facility] [id number] [place] [address] Jan, [facility] [place] [facility] [address] [facility] [id number] [facility] [address] Jan, [facility] [place] [facility] [address] [id number] [place] [address] Jan, [facility] [place] [facility] [address] [id number] [place] [address] Jan, [facility] [place] [facility] [address] [id number] [place] [address] Dec, [facility] [place] [facility] [address] [facility] [id number] [place] [address] Dec, [facility] [place] [facility] [address] [id number] [place] [address] Dec, [facility] [place] [facility] [address] [id number] [place] [address] Dec, [facility] [place] [facility] [address] [id number] [place] [address] Dec, [facility] [place] [facility] [address] [facility] [id number] [place] [address] Dec, [facility] [place] [facility] [address] [facility] [id number] [place] [address] Dec, [facility] [place] [facility] [address] [facility] [id number] [place] [address] Dec, [facility] [place] [facility] [address] [id number] [place] [address] Dec, [facility] [place] [facility] [address] [facility] [id number] [place] [address] Dec, [facility] [place] [facility] [address] [id number] [place] [address] Dec, [facility] [place] [facility] [address] [id number] [place] [address] Dec, [facility] [place] [facility] [address] [id number] [place] [address] October, [facility] [place] [facility] [address] [id number] [place] [address] October, [facility] [place] [facility] [address] [id number] [place] [address] October, [facility] [place] [facility] [address] [id number] [place] [address] October, [facility] [place] [facility] [address] [id number] [place] [address] October, [facility] [place] [facility] [address] [id number] [place] [address] October, [facility] [place] [facility] [address] [id number] [place] [address] Oct, [facility] [place] [facility] [address] [id number] [place] [address] Oct, [facility] [place] [facility] [address] [id number] [place] [address] Oct, [facility] [place] [facility] [address] [id number] [place] [address] Oct, [facility] [place] [facility] [address] [id number] [place] [address] Oct, [facility] [place] [facility] [address] [id number] [place] [address] Oct, [facility] [place] [facility] [address] [id number] [place] [address] Oct, [facility] [place] [facility] [address] [id number] [place] [address] Oct, [facility] [place] [facility] [address] [id number] [place] [address] Oct, [facility] [place] [facility] [address] [id number] [place] [address] Oct, [facility] [place] [facility] [address] [id number] [place] [address] Oct, [facility] [place] [facility] [address] [id number] [place] [address] Oct, [facility] [place] [facility] [address] [id number] [place] [address] Aug, [facility] [place] [facility] [address] [id number] [place] [address] Aug, [facility] [place] [facility] [address] [id number] [place] [address] Aug, [facility] [place] [facility] [address] [id number] [place] [address] Aug, [facility] [place] [facility] [address] [id number] [place] [address] Aug, [facility] [place] [facility] [address] [id number] [place] [address] Aug, [facility] [place] [facility] [address] [id number] [place] [address] Aug, [facility] [place] [facility] [address] [id number] [place] [address] Aug, [facility] [place] [facility] [address] [id number] [place] [address] Aug, [facility] [place] [facility] [address] [id number] [place] [address] Aug, [facility] [place] [facility] [address] [id number] [place] [address] Aug, [facility] [place] [facility] [address] [id number] [place] [address] Aug, [facility] [place] [facility] [address] [id number] [place] [address] Aug, [facility] [place] [facility] [address] [id number] [place] [address] Aug, [facility] [place] [facility] [address] [id number] [place] [address] Aug, [facility] [place] [facility] [address] [id number] [place] [address] Aug, [facility] [place] [facility] [address] [id number] [place] [address] Aug, [facility] [address] [id number] [place] [address] Aug, [facility] [address] [id number] [place] [address] Aug, [facility] [address] [id number] [place] [address] Aug, [facility] [address] [id number] [place] [address] Aug, [facility] [address] [id number] [place] [address] Aug, [facility] [address] [id number] [place] [address] Aug, [facility] [address] [id number] [place] [address] Aug, [facility] [address] [id number] [place] [address] Aug, [facility] [address] [id number] [place] [address] Jul, [facility] [address] [id number] [place] [address] Jul, [facility] [address] [id number] [place] [address] Jul, [facility] [address] [id number] [place] [address] Jul, [facility] [address] [id number] [place] [address] Jul, [facility] [address] [id number] [place] [address] Jul, [facility] [address] [id number] [place] [address] Jul, [facility] [address] [id number] [place] [address] Jul, [facility] [address] [facility] [id number] [place] [address] Jul, [facility] [address] [id number] [place] [address] Jul, [facility] [address] [id number] [place] [address] Jul, [facility] [address] [id number] [place] [address] Jul, [facility] [address] [id number] [place] [address] Jul, [facility] [address] [id number] [place] [address] Jul, [facility] [address] [id number] [place] [address] Jul, [facility] [address] [id number] [place] [address] Jul, [facility] [address] [id number] [place] [address] Jul, [facility] [address] [id number] [place] [address] Jul, [facility] [address] [id number] [place] [address] Jul, [facility] [place] [facility] [address] [id number] [place] [address] Jul, [facility] [place] [facility] [address] [id number] [place] [address] 31 Jun, 2013 [facility] [place] [facility] [address] [facility] [id number] [place] [address] Jun, [facility] [place] [facility] [address] [id number] [place] [address] Jun, [facility] [place] [facility] [address] [id number] [place] [address] Jun, [facility] [place] [facility] [address] [id number] [place] [address] Jun, [facility] [place] [facility] [address] [id number] [place] [address] Jun, [facility] [place] [facility] [address] [id number] [place] [address] Jun, [facility] [place] [facility] [address] [id number] [place] [address] Jun, [facility] [place] [facility] [address] [id number] [place] [address] Jun, [facility] [place] [facility] [address] [id number] [place] [address] Jun, [facility] [place] [facility] [address] [id number] [place] [address] Jun, [facility] [place] [facility] [address] [id number] [place] [address] Jun, [facility] [place] [facility] [address] [id number] [place] [address] Jun, [facility] [place] [facility] [address] [id number] [place] [address] Jun, [facility] [place] [facility] [address] [id number] [place] [address] Jun, [facility] [place] [facility] [address] [id number] [place] [address] Jun, [facility] [place] [facility] [address] [id number] [place] [address] Jun, [facility] [place] [facility] [address] [id number] [place] [address] 17 Jun, 2013 [facility] [place] [facility] [address] [id number] [place] [address] 17 Jun, 2013 [facility] [place] [facility] [address] [id number] [place] [address] Jun, [facility] [place] [facility] [address] [id number] [place] [address] Jun, [facility] [place] [facility] [address] [id number] [place] [address] Jun, [facility] [place] [facility] [address] [id number] [place] [address] Jun, [facility] [place] [facility] [address] [id number] [place] [address] Jun, [facility] [place] [facility] [address] [id number] [place] [address] Jun, [facility] [place] [facility] [address] [id number] [place] [address] Jun, [facility] [place] [facility] [address] [id number] [place] [address] Jun, [facility] [place] [facility] [address] [id number] [place] [address] May, [facility] [place] [facility] [address] [id number] [place] [address] May, [facility] [place] [facility] [address] [id number] [place] [address] May, [facility] [place] [facility] [address] [id number] [place] [address] May, [facility] [place] [facility] [id number] [place] [address] May, [facility] [place] [facility] [address] [id number] [place] [address] May, [facility] [place] [facility] [address] [id number] [place] [address] Apr, [facility] [place] [facility] [address] [id number] [place] [address] 30 Apr, 2012 [facility] [place] [facility] [address] [id number] [place] [address] 30 Apr, 2012 [facility] [place] [facility] [address] [id number] [place] [address] 30 Apr, 2012 [facility] [place] [facility] [address] [id number] [place] [address] Apr, 2012 [facility] [place] [facility] [address] [facility] [id number] [place] [address] 15 Apr, 2012 [facility] [place] [facility] [address] [id number] [place] [address] 15 Apr, 2012 [facility] [place] [facility] [address] [id number] [place] [address] Apr, [facility] [place] [facility] [address] [id number] [place] [address] 26 Mar, 2012 [facility] [place] [facility] [address] [id number] [place] [address] 24 Sep, 2012 [facility] [place] [facility] [address] [id number] [place] [address] 17 Sep, 2012 [facility] [place] [facility] [address] [id number] [place] [address] 17 Sep, 2012 [facility] [place] [facility] [address] [id number] [place] [address] 11 Sep, 2012 [facility] [place] [facility] [address] [id number] [place] [address] 10 Sep, 2012 [facility] [place] [facility] [address] [id number] [place] [address] 05 Sep, 2012 [facility] [place] [facility] [address] [id number] [place] [address] 04 Sep, 2012 [facility] [place] [facility] [address] [id number] [place] [address] 20 Jan, 2012 [facility] [place] [facility] [address] [id number] [facility] [address] Jan, [facility] [place] [facility] [address] [id number] [facility] [address] Jan, [facility] [place] [facility] [address] [facility] [id number] [facility] [address] Jan, [facility] [place] [facility] [address] [id number] [facility] [address] Jan, [facility] [place] [facility] [address] [facility] [id number] [facility] [address] 05 Jan, 2013 [facility] [place] [facility] [address] [facility] [id number] [place] [address] Dec, [facility] [place] [facility] [address] [facility] [id number] [place] [address] 24 Dec, 2012 [facility] [place] [facility] [address] [id number] [facility] [address] Dec, [facility] [place] [facility] [address] [id number] [facility] [address] Dec, [facility] [place] [facility] [address] [facility] [id number] [facility] [address] Dec, [facility] [place] [facility] [address] [id number] [facility] [address] 17 Dec, 2012 [facility] [place] [facility] [address] [id number] [place] [address] 16 Dec, 2012 [facility] [place] [facility] [address] [id number] [place] [address] 16 Dec, 2012 [facility] [place] [facility] [address] [facility] [id number] [place] [address] 15 Dec, 2012 [facility] [place] [facility] [address] [id number] [facility] [address] Dec, [facility] [place] [facility] [address] [facility] [id number] [facility] [address] Dec, [facility] [place] [facility] [address] [id number] [place] [address] Dec, [facility] [place] [facility] [address] [id number] [place] [address] Dec, [facility] [place] [facility] [address] [id number] [place] [address] Dec, [facility] [place] [facility] [address] [id number] [place] [address] Dec, [facility] [place] [facility] [address] [id number] [place] [address] Dec, [facility] [place] [facility] [address] [id number] [place] [address] October, [facility] [place] [facility] [address] [id number] [place] [address] October, [facility] [place] [facility] [address] [id number] [place] [address] October, [facility] [place] [facility] [address] [id number] [place] [address] October, [facility] [place] [facility] [address] [id number] [place] [address] October, [facility] [place] [facility] [address] [id number] [place] [address] October, [facility] [place] [facility] [address] [id number] [place] [address] October, [facility] [place] [facility] [address] [id number] [place] [address] Oct, [facility] [place] [facility] [address] [id number] [place] [address] Oct, [facility] [place] [facility] [address] [id number] [place] [address] Oct, [facility] [place] [facility] [address] [id number] [place] [address] Oct, [facility] [place] [facility] [address] [id number] [place] [address] Oct, [facility] [place] [facility] [address] [id number] [place] [address] Oct, [facility] [address] [facility] [id number] [place] [address] 17 Oct, 2012 [facility] [place] [facility] [address] [id number] [place] [address] 15 Oct, 2012 [facility] [place] [facility] [address] [id number] [place] [address] 12 Oct, 2012 [facility] [place] [facility] [address] [id number] [place] [address] Oct, [facility] [place] [facility] [address] [facility] [id number] [place] [address] Oct, [facility] [place] [facility] [address] [id number] [place] [address] Oct, [facility] [place] [facility] [address] [id number] [place] [address] Aug, [facility] [place] [facility] [address] [id number] [place] [address] Aug, [facility] [place] [facility] [address] [id number] [place] [address] Aug, [facility] [place] [facility] [address] [id number] [place] [address] 06 Aug, 2012 [facility] [place] [facility] [address] [id number] [place] [address] 05 Aug, 2012 [facility] [place] [facility] [address] [id number] [place] [address] 05 Aug, 2012 [facility] [place] [facility] [address] [id number] [place] [address] 20 Aug, 2012 [facility] [place] [facility] [address] [id number] [place] [address] 14 Aug, 2012 [facility] [place] [facility] [address] [id number] [place] [address] 12 Aug, 2012 [facility] [place] [facility] [address] [id number] [place] [address] Aug, [facility] [place] [facility] [address] [id number] [place] [address] 29 Jul, 2012 [facility] [place] [facility] [address] [id number] [place] [address] 15 Jul, 2012 [facility] [place] [facility] [address] [id number] [place] [address] 08 Jul, 2012 [facility] [place] [facility] [address] [id number] [place] [address] 20 Jun, 2012 [facility] [place] [facility] [address] [id number] [place] [address] 18 Jun, 2012 [facility] [place] [facility] [address] [id number] [place] [address] 18 Jun, 2012 [facility] [place] [facility] [address] [id number] [place] [address] 18 Jun, 2012 [facility] [place] [facility] [address] [id number] [place] [address] 18 Jun, 2012 [facility] [place] [facility] [address] [id number] [place] [address] 14 Jun, 2012 [facility] [place] [facility] [address] [id number] [place] [address] 14 Jun, 2012 [facility] [place] [facility] [address] [id number] [place] [address] 13 Jun, 2012 [facility] [place] [facility] [address] [id number] [place] [address] 13 Jun, 2012 [facility] [place] [facility] [address] [id number] [place] [address] 11 Jun, 2012 [facility] [place] [facility] [address] [id number] [place] [address] 11 Jun, 2012 [facility] [place] [facility] [address] [id number] [place] [address] 11 Jun, 2012 [facility] [place] [facility] [address] [id number] [place] [address] 11 Jun, 2012 [facility] [place] [facility] [address] [id number] [place] [address] 07 Jun, 2012 [facility] [place] [facility] [address] [id number] [place] [address] Jun, [facility] [place] [facility] [address] [id number] [place] [address] Jun, [facility] [place] [facility] [address] [id number] [place] [address] Jun, [facility] [place] [facility] [address] [id number] [place] [address] Jun, [facility] [place] [facility] [address] [id number] [place] [address] Jun, [facility] [place] [facility] [address] [id number] [place] [address] Jun, [facility] [place] [facility] [address] [id number] [place] [address] Jun, [facility] [place] [facility] [address] [id number] [place] [address] Jun, [facility] [place] [facility] [address] [id number] [place] [address] Jun, [facility] [place] [facility] [address] [id number] [place] [address] May, [facility] [place] [facility] [address] [id number] [place] [address] May, [facility] [place] [facility] [address] [id number] [place] [address] May, [facility] [place] [facility] [address] [id number] [place] [address] May, [facility] [place] [facility] [address] [id number] [place] [address] May, [facility] [place] [facility] [address] [id number] [place] [address] May, [facility] [place] [facility] [address] [id number] [place] [address] May, [facility] [place] [facility] [address] [id number] [place] [address] May, [facility] [place] [facility] [address] [facility] [id number] [place] [address] Apr, 2011 [facility] [place] [facility] [address] [id number] [place] [address] Apr, [facility] [place] [facility] [address] [id number] [place] [address] Apr, 2011 [facility] [place] [facility] [address] [id number] [place] [address] Apr, [facility] [place] [facility] [address] [facility] [id number] [place] [address] Apr, [facility] [place] [facility] [address] [id number] [place] [address] Apr, [facility] [place] [facility] [address] [id number] [place] [address] Apr, [facility] [place] [facility] [address] [id number] [place] [address] Apr, [facility] [place] [facility] [address] [id number] [place] [address] 09 Apr, 2012 [facility] [place] [facility] [address] [id number] [place] [address] 08 Apr, 2012 [facility] [place] [facility] [address] [id number] [place] [address] 04 Apr, 2012 [facility] [place] [facility] [address] [id number] [place] [address] 02 Apr, 2012 [facility] [place] [facility] [address] [id number] [place] [address] 19 Mar, 2011 [facility] [place] [facility] [address] [facility] [id number] [place] [address] 18 Sep, 2011 [facility] [place] [facility] [address] [id number] [place] [address] 12 Sep, 2011 [facility] [place] [facility] [address] [id number] [place] [address] 12 Mar, 2011 [facility] [place] [facility] [address] [facility] [id number] [place] [id number] Mar, [facility] [place] [facility] [address] [id number] [place] [id number] Mar, [facility] [place] [facility] [address] [id number] [place] [address] Mar, [facility] [place] [facility] [address] [id number] [place] [address] Jan, [facility] [place] [facility] [address] [id number] [place] [address] Jan, [facility] [place] [facility] [address] [id number] [place] [id number] Jan, [facility] [place] [facility] [address] [id number] [place] [address] , [place] [id number] Jan, [facility] [place] [facility] [address] [id number] [place] [address] Jan, [facility] [place] [facility] [address] [id number] [place] [address] Jan, [facility] [place] [facility] [address] [id number] [place] [address] Jan, [facility] [place] [facility] [address] [id number] [place] [address] Jan, [facility] [place] [facility] [address] [id number] [place] [address] Jan, [facility] [place] [facility] [address] [id number] [place] [address] Jan, [facility] [place] [facility] [address] [id number] [place] [address] Jan, [facility] [place] [facility] [address] [id number] [place] [address] Dec, [facility] [place] [facility] [address] [id number] [place] [address] Dec, [facility] [place] [facility] [address] [id number] [place] [address] Dec, [facility] [place] [facility] [address] [id number] [place] [address] 26 Jan, 2012 [facility] [place] [facility] [address] [id number] [place] [address] 20 Jan, 2012 [facility] [place] [facility] [address] [id number] [place] [address] 19 Jan, 2012 [facility] [place] [facility] [address] [id number] [place] [address] 18 Jan, 2012 [facility] [place] [facility] [address] [id number] [place] [address] 17 Jan, 2012 [facility] [place] [facility] [address] [facility] [id number] [place] [address] 16 Jan, 2012 [facility] [place] [facility] [address] [id number] [place] [address] 13 Jan, 2012 [facility] [place] [facility] [address] [id number] [place] [address] Dec, [facility] [place] [facility] [address] [id number] [place] [address] Dec, [facility] [place] [facility] [address] [id number] [place] [address] Dec, [facility] [place] [facility] [address] [id number] [place] [address] Dec, [facility] [place] [facility] [address] [id number] [place] [address] Dec, [facility] [place] [facility] [address] [id number] [place] [address] Dec, [facility] [place] [facility] [address] [id number] [place] [address] 15 Dec, 2011 [facility] [place] [facility] [address] [id number] [place] [address] 06 Dec, 2011 [facility] [place] [facility] [address] [id number] [place] [address] 05 Dec, 2011 [facility] [place] [facility] [address] [id number] [place] [address] October, [facility] [place] [facility] [address] [id number] [place] [address] October, [facility] [place] [facility] [address] [id number] [place] [address] October, [facility] [place] [facility] [address] [id number] [place] [address] October, [facility] [place] [facility] [address] [id number] [place] [address] October, [facility] [place] [facility] [address] [id number] [place] [address] October, [facility] [address] [id number] [place] [address] Oct, [facility] [address] [id number] [place] [address] Oct, [facility] [address] [id number] [place] [address] Oct, [facility] [address] [id number] [place] [address] Oct, [facility] [address] [id number] [place] [address] Oct, [facility] [address] [id number] [place] [address] Oct, [facility] [address] [id number] [place] [address] Oct, [facility] [address] [id number] [place] [address] Aug, [facility] [address] [id number] [place] [address] Aug, [facility] [address] [id number] [place] [address] Aug, [facility] [address] [id number] [place] [address] Aug, [facility] [address] [id number] [place] [address] Aug, [facility] [address] [id number] [place] [address] Aug, [facility] [address] [id number] [place] [address] Aug, [facility] [address] [id number] [place] [address] Aug, [facility] [address] [id number] [place] [address] Aug, [facility] [address] [id number] [place] [address] Jul, [facility] [address] [id number] [place] [address] Jul, [facility] [address] [id number] [place] [address] Jul, [facility] [id number] [place] [address] Jul, [facility] [address] [id number] [place] [address] Jun, [facility] [id number] [place] [address] Jun, [facility] [address] [id number] [place] [address] May, [facility] [id number] [place] [address] May, [facility] [address] [id number] [place] [address] May, [facility] [id number] [place] [address] May, [facility] [address] [id number] [place] [address] May, [facility] [address] [id number] [place] [address] Apr, [facility] [address] [id number] [place] [address] 28 Apr, 2011 [facility] [address] [id number] [place] [address] Apr, [facility] [address] [id number] [place] [address] Jan, [facility] [address] [id number] [place] [address] Dec, [facility] [id number] [place] [address] October, [facility] [id number] [place] [address] Jun, [facility] [id number] [place] [address] Apr, [facility] [address] [id number] [place] [address] Apr, [facility] [address] [id number] [place] [address] Apr, [facility] [address] [id number] [place] [address] Jun, IMMUNIZATIONS No Known Immunizations SOCIAL HISTORY [...]
--- OUTSIDE RECORDS SUMMARY | 2020-01-25 13:37 | XMS REPORT ---
Author Author FRANCINE Ana SUTHERLANDN [facility] Address [address] [place] [address] Care Team Providers Care Edge Finisher Name Role Phone ENA ESCAMILLAN Unavailable PROBLEMS Type Condition ICD9-CM Code [id number] Code Onset Dates Condition S tatus SNOMED Code Problem Attention deficit R41.840 Active 76 048100 Problem Cannabis abuse F12.10 Active 85340 009 Problem Chronic hepatitis C without hepatic coma B18.2 Active 499532568 Problem Attention deficit hyperactivity disorder (ADHD), combi luciano type F90.2 Active 22412932 Problem Bipolar disorder, in partial remission, most rec ent episode hypomanic F31.71 Active 688959609 Problem H/O laminectomy Z98.89 Active 1616 45184 Problem Bipolar 1 disorder F31.9 Active 3 26963182 Problem Anxiety disorder, unspecified type F41.9 Active 938506949 Problem Other chronic pain G89.29 Active 8 0095889 ALLERGIES Substance Reaction Event Type Date Status Zyprexa Unknown Drug Allergy Apr, Active Benzodiazepines Failed UDS (opiates, & THC) Non Drug Allergy Apr Active Amitiza Unknown Non Drug Allergy Apr, Active Hydrocodone Failed UDS (opiates, & THC) Non Drug Allergy Apr, 2 017 Active ENCOUNTERS Encounter Location Date Diagnosis [facility] [address] [facility] [id number] [address] [place] [address] Dec, [facility] [address] [facility] [id number] [address] [place] [address] October, [facility] [address] [facility] [id number] [address] [place] [address] Oct, Bipolar disorder, in partial remission, most recent episode hypomanic F31.71 ; Attention deficit hyperactivity disorder (ADHD), combined type F90.2 ; Anxiety disorder, unspecified type F41.9 and Encounter for drug screening Z02.83 [facility] [address] [id number] [address] [place] [address] Oct, Bipolar disorder, in partial remission, most recent episode hypomanic F31.71 [facility] [address] [id number] [address] [place] [address] Oct, Bipolar disorder, in partial remission, most recent episode hypomanic F31.71 [facility] [address] [facility] [id number] [address] [place] [address] Aug, Bipolar disorder, in partial remission, most recent episode hypomanic F31.71 [facility] [address] [facility] [id number] [address] [place] [address] Aug, Bipolar disorder, in partial remission, most recent episode hypomanic F31.71 [facility] [address] [facility] [id number] [address] [place] [address] Aug, Bipolar disorder, in partial remission, most recent episode hypomanic F31.71 [facility] [address] [facility] [id number] [address] [place] [address] Jul, Bipolar disorder, in partial remission, most recent episode hypomanic F31.71 ; Attention deficit hyperactivity disorder (ADHD), combined type F90.2 and Anxiety disorder, unspecified type F41.9 [facility] [address] [facility] [id number] [address] [place] [address] Jul, Bipolar disorder, in partial remission, most recent episode hypomanic F31.71 [facility] [address] [facility] [id number] [address] [place] [address] Jun, Bipolar disorder, in partial remission, most recent episode hypomanic F31.71 [facility] [address] [facility] [id number] [address] [place] [address] May, Bipolar disorder, in partial remission, most recent episode hypomanic F31.71 [facility] [address] [facility] [id number] [address] [place] [address] May, Bipolar disorder, in partial remission, most recent episode hypomanic F31.71 [facility] [address] [facility] [id number] [address] [place] [address] Apr, [facility] [address] [facility] [id number] [address] [place] [address] Apr, Bipolar disorder, in partial remission, most recent episode hypomanic F31.71 ; Attention deficit hyperactivity disorder (ADHD), combined type F90.2 ; Anxiety disorder, unspecified type F41.9 and Cannabis abuse F12.10 [facility] [address] [facility] [id number] [address] [place] [address] Apr, Attention deficit hyperactiv ity disorder (ADHD), combined type F90.2 [facility] [address] [facility] [id number] [address] [place] [address] Mar, Attention deficit hyperactiv ity disorder (ADHD), combined type F90.2 [facility] [address] [facility] [id number] [address] [place] [address] Mar, Anxiety disorder, unspecifie d type F41.9 [facility] [address] [facility] [id number] [address] [place] [address] Jan, Attention deficit hyperactiv ity disorder (ADHD), combined type F90.2 [facility] [address] [facility] [id number] [address] [place] [address] Jan, Anxiety disorder, unspecifie d type F41.9 [facility] [address] [facility] [id number] [address] [place] [address] Jan, Other chronic pain G89.29 ; Chronic hepatitis C without hepatic coma B18.2 and Bipolar 1 disorder F31.9 [facility] [address] [facility] [id number] [address] [place] [address] Dec, Attention deficit hyperactiv ity disorder (ADHD), combined type F90.2 [facility] [address] [facility] [id number] [address] [place] [address] Dec, Bipolar disorder, in partial remission, most recent episode hypomanic F31.71 ; Attention deficit hyperactivity disorder (ADHD), combined type F90.2 and Anxiety disorder, unspecified type F41.9 [facility] [address] [id number] [address] [place] [address] Dec, Bipolar disorder, in partial remission, most recent episode hypomanic F31.71 ; Attention deficit hyperactivity disorder (ADHD), combined type F90.2 and Anxiety disorder, unspecified type F41.9 [facility] [address] [id number] [address] [place] [address] Dec, Bipolar 1 disorder F31.9 and Attention deficit R41.840 [facility] [address] [facility] [id number] [address] [place] [address] Oct, Other chronic pain G89.29 ; Alopecia L65.9 and Screening, lipid Z13.220 [facility] [address] [facility] [id number] [address] [place] [address] Oct, [facility] [address] [id number] [address] [place] [address] Aug, [facility] [address] [facility] [id number] [address] [place] [id number] Aug, Eustachian tube dysfunction, right H69.81 ; Vertigo R42 and Other chronic pain G89.29 [facility] [address] [facility] [id number] [address] [place] [address] Aug, [facility] [address] [id number] [address] [place] [address] Jun, [facility] [address] [id number] [address] [place] [address] Jun, Low back pain M54.5 and Othe r chronic pain G89.29 [facility] [address] [id number] [address] [place] [address] Jun, [facility] [address] [facility] [id number] [address] [place] [address] May, [facility] [address] [facility] [id number] [address] [place] [address] Jan, [facility] [address] [facility] [id number] [address] [place] [address] Dec, [facility] [address] [facility] [id number] [address] [place] [address] Dec, [facility] [address] [facility] [id number] [address] [place] [address] Jun, [facility] [address] [facility] [id number] [address] [place] [address] Apr, Eustachian tube dysfunction, unspecified laterality H69.80 ; Hot flashes N95.1 and Encounter for immunization Z23 [facility] [address] [facility] [id number] [address] [place] [address] Jan, [facility] [address] [facility] [id number] [address] [place] [address] Jan, [facility] [address] [facility] [id number] [address] [place] [address] Jan, [facility] [address] [facility] [id number] [address] [place] [address] Jan, [facility] [address] [facility] [id number] [address] [place] [address] Jan, Encounter to establish care V65.8 ; Bipolar 1 disorder 296.7 ; Abdominal pain 789.00 ; Constipation 564.00 ; Hard of hearing 389.9 and Drug abuse 305.90 [facility] [address] [facility] [id number] [address] [place] [address] Dec, [facility] [address] [facility] [id number] [address] [place] [address] October, [facility] [address] [facility] [id number] [address] [place] [address] October, [facility] [address] [id number] [address] [place] [address], [place] [address] 30 Oct, 2014 [facility] [address] [id number] [address] [place] [address], [place] [address] 14 Oct, 2014 [facility] [address] [id number] [address] [place] [address], [place] [address] Oct, [facility] [address] [id number] [address] [place] [address], [place] [address] Aug, [facility] [address] [id number] [address] [place] [address], [place] [address] Aug, [facility] [address] [id number] [address] [place] [address], [place] [address] Aug, [facility] [address] [id number] [address] [place] [address], [place] [address] Aug, [facility] [address] [id number] [address] [place] [address], [place] [address] Aug, [facility] [address] [id number] [address] [place] [address], [place] [address] Aug, [facility] [address] [id number] [address] [place] [address], [place] [address] Aug, [facility] [address] [id number] [address] [place] [address], [place] [address] Aug, [facility] [address] [id number] [address] [place] [address], [place] [address] Aug, [facility] [address] [id number] [address] [place] [address], [place] [address] Aug, [facility] [address] [id number] [address] [place] [address], [place] [address] Aug, [facility] [address] [id number] [address] [place] [address], [place] [address] Aug, [facility] [address] [id number] [address] [place] [address], [place] [address] Aug, [facility] [address] [id number] [address] [place] [address], [place] [address] Aug, [facility] [address] [id number] [address] [place] [address], [place] [address] Aug, [facility] [address] [id number] [address] [place] [address], [place] [address] Jul, [facility] [address] [id number] [address] [place] [address], [place] [address] Jul, [facility] [address] [id number] [address] [place] [address], [place] [address] Jul, [facility] [address] [id number] [address] [place] [address], [place] [address] Jul, [facility] [address] [id number] [address] [place] [address], [place] [address] Jul, [facility] [address] [id number] [address] [place] [address], [place] [address] Jul, [facility] [address] [id number] [address] [place] [address], [place] [address] Jul, [facility] [address] [id number] [address] [place] [address], [place] [address] Jul, [facility] [address] [id number] [address] [place] [address], [place] [address] Jun, [facility] [address] [id number] [address] [place] [address], [place] [address] Jun, [facility] [address] [id number] [address] [place] [address], [place] [address] Jun, [facility] [address] [id number] [address] [place] [address], [place] [address] Jun, [facility] [address] [id number] [address] [place] [address], [place] [address] Jun, [facility] [address] [id number] [address] [place] [address], [place] [address] Jun, [facility] [address] [id number] [address] [place] [address], [place] [address] Jun, [facility] [address] [id number] [address] [place] [address], [place] [address] Jun, [facility] [address] [id number] [address] [place] [address], [place] [address] Jun, [facility] [address] [id number] [address] [place] [address], [place] [address] Jun, [facility] [address] [id number] [address] [place] [address], [place] [address] Jun, [facility] [address] [id number] [address] [place] [address], [place] [address] May, [facility] [address] [id number] [address] [place] [address], [place] [address] May, [facility] [address] [id number] [address] [place] [address], [place] [address] May, [facility] [address] [id number] [address] [place] [address], [place] [address] May, [facility] [address] [id number] [address] [place] [address], [place] [address] May, [facility] [address] [id number] [address] [place] [address] May, [facility] [address] [id number] [address] [place] [address], [place] [address] May, [facility] [address] [id number] [address] [place] [address], [place] [address] Apr, [facility] [address] [id number] [address] [place] [address], [place] [address] Apr, [facility] [address] [id number] [address] [place] [address] Apr, [facility] [address] [id number] [address] [place] [address], [place] [address] Apr, [facility] [address] [id number] [address] [place] [address], [place] [address] Apr, [facility] [address] [id number] [address] [place] [address], [place] [address] Apr, [facility] [address] [id number] [address] [place] [address], [place] [address] Mar, [facility] [address] [id number] [address] [place] [address], [place] [address] Mar, [facility] [address] [id number] [address] [place] [address], [place] [address] Mar, [facility] [address] [id number] [address] [place] [address], [place] [address] Mar, [facility] [address] [id number] [address] [place] [address], [place] [address] Mar, [facility] [address] [id number] [address] [place] [address], [place] [address] Mar, [facility] [address] [id number] [address] [place] [address], [place] [address] Jan, [facility] [address] [id number] [address] [place] [address], [place] [address] Jan, [facility] [address] [id number] [address] [place] [address], [place] [address] Jan, [facility] [address] [id number] [address] [place] [address], [place] [address] Jan, [facility] [address] [id number] [address] [place] [address], [place] [address] Dec, [facility] [address] [id number] [address] [place] [address], [place] [address] Dec, [facility] [address] [id number] [facility] [place] [address] Dec, [facility] [address] [id number] [facility] [place] [address] Dec, [facility] [address] [id number] [facility] [place] [address] Dec, [facility] [address] [id number] [facility] [place] [address] Dec, [facility] [address] [id number] [address] [place] [address], [place] [address] Dec, [facility] [address] [id number] [address] [place] [address], [place] [address] Dec, [facility] [address] [id number] [address] [place] [address], [place] [address] Dec, [facility] [address] [id number] [address] [place] [address], [place] [address] Dec, [facility] [address] [id number] [address] [place] [address], [place] [address] Dec, [facility] [address] [id number] [address] [place] [address], [place] [address] Dec, [facility] [address] [id number] [address] [place] [address], [place] [address] October, [facility] [address] [id number] [address] [place] [address], [place] [address] October, [facility] [address] [id number] [address] [place] [address], [place] [address] October, [facility] [address] [id number] [address] [place] [address], [place] [address] October, [facility] [address] [id number] [address] [place] [address], [place] [address] October, [facility] [address] [id number] [address] [place] [address], [place] [address] October, [facility] [address] [id number] [facility] [place] [address] Oct, [facility] [address] [id number] [facility] [place] [address] Oct, [facility] [address] [id number] [address] [place] [address], [place] [address] Oct, [facility] [address] [id number] [address] [place] [address], [place] [address] Oct, [facility] [address] [id number] [address] [place] [address], [place] [address] Oct, [facility] [address] [id number] [address] [place] [address], [place] [address] Oct, [facility] [address] [id number] [address] [place] [address], [place] [address] Oct, [facility] [address] [id number] [address] [place] [address], [place] [address] Oct, [facility] [address] [id number] [address] [place] [address], [place] [address] Oct, [facility] [address] [id number] [address] [place] [address], [place] [address] Oct, [facility] [address] [id number] [address] [place] [address], [place] [address] Oct, [facility] [address] [id number] [address] [place] [address], [place] [address] Oct, [facility] [address] [id number] [address] [place] [address], [place] [address] Aug, [facility] [address] [id number] [address] [place] [address], [place] [address] Aug, [facility] [address] [id number] [address] [place] [address], [place] [address] Aug, [facility] [address] [id number] [address] [place] [address], [place] [address] 11 Aug, 2013 [facility] [address] [id number] [address] [place] [address], [place] [address] 05 Aug, 2013 [facility] [address] [id number] [address] [place] [address], [place] [address] 05 Aug, 2013 [facility] [address] [id number] [address] [place] [address], [place] [address] 04 Aug, 2013 [facility] [address] [id number] [address] [place] [address], [place] [address] Aug, [facility] [address] [id number] [address] [place] [address], [place] [address] 03 Aug, 2013 [facility] [address] [id number] [address] [place] [address], [place] [address] 24 Aug, 2013 [facility] [address] [id number] [address] [place] [address], [place] [address] 24 Aug, 2013 [facility] [address] [id number] [address] [place] [address], [place] [address] 21 Aug, 2013 [facility] [address] [id number] [address] [place] [address], [place] [address] 21 Aug, 2013 [facility] [address] [id number] [address] [place] [address], [place] [address] 20 Aug, 2013 [facility] [address] [id number] [address] [place] [address], [place] [address] 14 Aug, 2013 [facility] [address] [id number] [address] [place] [address], [place] [address] 14 Aug, 2013 [facility] [address] [id number] [address] [place] [address], [place] [address] 14 Aug, 2013 [facility] [address] [id number] [address] [place] [address], [place] [address] 14 Aug, 2013 [facility] [address] [id number] [address] [place] [address], [place] [address] 07 Aug, 2013 [facility] [address] [id number] [address] [place] [address], [place] [address] Aug, [facility] [address] [id number] [address] [place] [address], [place] [address] Aug, [facility] [address] [id number] [address] [place] [address], [place] [address] Aug, [facility] [address] [id number] [address] [place] [address], [place] [address] Aug, [facility] [address] [id number] [address] [place] [address], [place] [address] Aug, [facility] [address] [id number] [address] [place] [address], [place] [address] Aug, [facility] [address] [id number] [address] [place] [address], [place] [address] Jul, [facility] [address] [id number] [address] [place] [address], [place] [address] Jul, [facility] [address] [id number] [address] [place] [address], [place] [address] Jul, [facility] [address] [id number] [address] [place] [address], [place] [address] Jul, [facility] [address] [id number] [address] [place] [address], [place] [address] Jul, [facility] [address] [id number] [address] [place] [address] Jul, [facility] [address] [id number] [address] [place] [address], [place] [address] Jul, [facility] [address] [id number] [address] [place] [address], [place] [address] Jul, [facility] [address] [id number] [address] [place] [address], [place] [address] Jul, [facility] [address] [id number] [address] [place] [address], [place] [address] Jul, [facility] [address] [id number] [address] [place] [address], [place] [address] Jul, [facility] [address] [id number] [address] [place] [address], [place] [address] Jul, [facility] [address] [id number] [address] [place] [address], [place] [address] Jul, [facility] [address] [id number] [address] [place] [address], [place] [address] Jul, [facility] [address] [id number] [address] [place] [address], [place] [address] Jul, [facility] [address] [id number] [address] [place] [address], [place] [address] Jul, [facility] [address] [id number] [address] [place] [address], [place] [address] Jul, [facility] [address] [id number] [address] [place] [address], [place] [address] Jul, [facility] [address] [id number] [address] [place] [address], [place] [address] Jul, [facility] [address] [id number] [address] [place] [address] [address] Jul, [facility] [address] [id number] [address] [place] [address], [place] [address] Jun, [facility] [address] [id number] [address] [place] [address], [place] [address] Jun, [facility] [address] [id number] [address] [place] [address], [place] [address] Jun, [facility] [address] [id number] [address] [place] [address], [place] [address] Jun, [facility] [address] [id number] [address] [place] [address], [place] [address] Jun, [facility] [address] [id number] [address] [place] [address], [place] [address] Jun, [facility] [address] [id number] [address] [place] [address], [place] [address] Jun, [facility] [address] [id number] [address] [place] [address], [place] [address] Jun, [facility] [address] [id number] [address] [place] [address], [place] [address] Jun, [facility] [address] [id number] [address] [place] [address], [place] [address] Jun, [facility] [address] [id number] [address] [place] [address], [place] [address] Jun, [facility] [address] [id number] [address] [place] [address], [place] [address] Jun, [facility] [address] [id number] [address] [place] [address], [place] [address] Jun, [facility] [address] [id number] [address] [place] [address], [place] [address] Jun, [facility] [address] [id number] [address] [place] [address], [place] [address] Jun, [facility] [address] [id number] [address] [place] [address], [place] [address] 18 Jun, 2013 [facility] [address] [id number] [address] [place] [address], [place] [address] 18 Jun, 2013 [facility] [address] [id number] [address] [place] [address], [place] [address] 17 Jun, 2013 [facility] [address] [id number] [address] [place] [address], [place] [address] 17 Jun, 2013 [facility] [address] [id number] [address] [place] [address], [place] [address] 13 Jun, 2013 [facility] [address] [id number] [address] [place] [address], [place] [address] 12 Jun, 2013 [facility] [address] [id number] [address] [place] [address], [place] [address] Jun, [facility] [address] [id number] [address] [place] [address], [place] [address] Jun, [facility] [address] [id number] [address] [place] [address], [place] [address] Jun, [facility] [address] [id number] [address] [place] [address], [place] [address] Jun, [facility] [address] [id number] [address] [place] [address], [place] [address] Jun, [facility] [address] [id number] [address] [place] [address], [place] [address] Jun, [facility] [address] [id number] [address] [place] [address], [place] [address] May, [facility] [address] [id number] [address] [place] [address], [place] [address] May, [facility] [address] [id number] [address] [place] [address], [place] [address] May, [facility] [address] [id number] [address] [place] [address], [place] [address] May, [facility] [address] [id number] [address] [place] [address], [place] [address] May, [facility] [address] [id number] [address] [place] [address], [place] [address] May, [facility] [address] [id number] [address] [place] [address], [place] [address] Apr, [facility] [address] [id number] [address] [place] [address], [place] [address] Apr, [facility] [address] [id number] [address] [place] [address] Apr, [facility] [address] [id number] [address] [place] [address], [place] [address] 30 Apr, 2013 [facility] [address] [id number] [address] [place] [address], [place] [address] Apr, [facility] [address] [id number] [address] [place] [address], [place] [address] 15 Apr, 2013 [facility] [address] [id number] [address] [place] [address], [place] [address] 15 Apr, 2013 [facility] [address] [id number] [address] [place] [address], [place] [address] Apr, [facility] [address] [id number] [address] [place] [address], [place] [address] 26 Mar, 2013 [facility] [address] [id number] [address] [place] [address], [place] [address] 24 Mar, 2013 [facility] [address] [id number] [address] [place] [address], [place] [address] 17 Mar, 2013 [facility] [address] [id number] [address] [place] [address], [place] [address] 17 Mar, 2013 [facility] [address] [id number] [address] [place] [address], [place] [address] 11 Mar, 2013 [facility] [address] [id number] [address] [place] [address], [place] [address] 10 Mar, 2013 [facility] [address] [id number] [address] [place] [address], [place] [address] 05 Sep, 2012 [facility] [address] [id number] [address] [place] [address], [place] [address] 04 Mar, 2013 [facility] [address] [id number] [address] [place] [address], [place] [address] 20 Jan, 2013 [facility] [address] [id number] [address] [place] [address], [place] [address] 19 Jan, 2013 [facility] [address] [id number] [address] [place] [address], [place] [address] 14 Jan, 2013 [facility] [address] [id number] [address] [place] [address], [place] [address] 12 Jan, 2013 [facility] [address] [id number] [address] [place] [address], [place] [address] 07 Jan, 2013 [facility] [address] [id number] [address] [place] [address], [place] [address] Jan, [facility] [address] [id number] [address] [place] [address], [place] [address] Dec, [facility] [address] [id number] [address] [place] [address], [place] [address] 24 Dec, 2012 [facility] [address] [id number] [address] [place] [address], [place] [address] Dec, [facility] [address] [id number] [address] [place] [address], [place] [address] Dec, [facility] [address] [id number] [address] [place] [address], [place] [address] 18 Dec, 2012 [facility] [address] [id number] [address] [place] [address], [place] [address] 17 Dec, 2012 [facility] [address] [id number] [address] [place] [address], [place] [address] 16 Dec, 2012 [facility] [address] [id number] [address] [place] [address], [place] [address] 16 Dec, 2012 [facility] [address] [id number] [address] [place] [address], [place] [address] 15 Dec, 2012 [facility] [address] [id number] [address] [place] [address], [place] [address] Dec, [facility] [address] [id number] [address] [place] [address], [place] [address] Dec, [facility] [address] [id number] [address] [place] [address], [place] [address] Dec, [facility] [address] [id number] [address] [place] [address], [place] [address] Dec, [facility] [address] [id number] [address] [place] [address], [place] [address] Dec, [facility] [address] [id number] [address] [place] [address], [place] [address] Dec, [facility] [address] [id number] [address] [place] [address], [place] [address] Dec, [facility] [address] [id number] [address] [place] [address], [place] [address] October, [facility] [address] [id number] [address] [place] [address], [place] [address] October, [facility] [address] [id number] [address] [place] [address], [place] [address] October, [facility] [address] [id number] [address] [place] [address], [place] [address] October, [facility] [address] [id number] [address] [place] [address], [place] [address] October, [facility] [address] [id number] [address] [place] [address], [place] [address] October, [facility] [address] [id number] [address] [place] [address], [place] [address] October, [facility] [address] [id number] [address] [place] [address], [place] [address] Oct, [facility] [address] [id number] [address] [place] [address], [place] [address] Oct, [facility] [address] [id number] [address] [place] [address], [place] [address] Oct, [facility] [address] [id number] [address] [place] [address], [place] [address] Oct, [facility] [address] [id number] [address] [place] [address], [place] [address] Oct, [facility] [address] [id number] [address] [place] [address], [place] [address] 18 Oct, 2012 [facility] [address] [id number] [address] [place] [address], [place] [address] [address], [address] [facility] [address] [id number] [address] [place] [address], [place] [address] 15 Oct, 2012 [facility] [address] [id number] [address] [place] [address], [place] [address] Oct, [facility] [address] [id number] [address] [place] [address], [place] [address] Oct, [facility] [address] [id number] [address] [place] [address], [place] [address] Oct, [facility] [address] [id number] [address] [place] [address], [place] [address] Oct, [facility] [address] [id number] [address] [place] [address], [place] [address] Aug, [facility] [address] [id number] [address] [place] [address], [place] [address] Aug, [facility] [address] [id number] [address] [place] [address], [place] [address] Aug, [facility] [address] [id number] [address] [place] [address], [place] [address] Aug, [facility] [address] [id number] [address] [place] [address], [place] [address] 05 Aug, 2012 [facility] [address] [id number] [address] [place] [address], [place] [address] Aug, [facility] [address] [id number] [address] [place] [address], [place] [address] 20 Aug, 2012 [facility] [address] [id number] [address] [place] [address], [place] [address] 14 Aug, 2012 [facility] [address] [id number] [address] [place] [address], [place] [address] 12 Aug, 2012 [facility] [address] [id number] [address] [place] [address], [place] [address] 11 Aug, 2012 [facility] [address] [id number] [address] [place] [address], [place] [address] 29 Jul, 2012 [facility] [address] [id number] [address] [place] [address], [place] [address] 15 Jul, 2012 [facility] [address] [id number] [address] [place] [address], [place] [address] 08 Jul, 2012 [facility] [address] [id number] [address] [place] [address], [place] [address] 20 Jun, 2012 [facility] [address] [id number] [address] [place] [address], [place] [address] 18 Jun, 2012 [facility] [address] [id number] [address] [place] [address], [place] [address] 18 Jun, 2012 [facility] [address] [id number] [address] [place] [address], [place] [address] 18 Jun, 2012 [facility] [address] [id number] [address] [place] [address], [place] [address] [address], [address] [facility] [address] [id number] [address] [place] [address], [place] [address] 14 Jun, 2012 [facility] [address] [id number] [address] [place] [address], [place] [address] 14 Jun, 2012 [facility] [address] [id number] [address] [place] [address], [place] [address] 13 Jun, 2012 [facility] [address] [id number] [address] [place] [address], [place] [address] 13 Jun, 2012 [facility] [address] [id number] [address] [place] [address], [place] [address] 11 Jun, 2012 [facility] [address] [id number] [address] [place] [address], [place] [address] Jun, [facility] [address] [id number] [address] [place] [address], [place] [address] Jun, [facility] [address] [id number] [address] [place] [address], [place] [address] Jun, [facility] [address] [id number] [address] [place] [address], [place] [address] Jun, [facility] [address] [id number] [address] [place] [address], [place] [address] Jun, [facility] [address] [id number] [address] [place] [address], [place] [address] Jun, [facility] [address] [id number] [address] [place] [address], [place] [address] Jun, [facility] [address] [id number] [address] [place] [address], [place] [address] Jun, [facility] [address] [id number] [address] [place] [address], [place] [address] Jun, [facility] [address] [id number] [address] [place] [address], [place] [address] Jun, [facility] [address] [id number] [address] [place] [address], [place] [address] Jun, [facility] [address] [id number] [address] [place] [address], [place] [address] Jun, [facility] [address] [id number] [address] [place] [address], [place] [address] Jun, [facility] [address] [id number] [address] [place] [address], [place] [address] May, [facility] [address] [id number] [address] [place] [address], [place] [address] May, [facility] [address] [id number] [address] [place] [address], [place] [address] May, [facility] [address] [id number] [address] [place] [address] May, [facility] [address] [id number] [address] [place] [address], [place] [address] May, [facility] [address] [id number] [address] [place] [address] May, [facility] [address] [id number] [address] [place] [address], [place] [address] May, [facility] [address] [id number] [address] [place] [address] May, [facility] [address] [id number] [address] [place] [address], [place] [address] Apr, [facility] [address] [id number] [address] [place] [address], [place] [address] Apr, [facility] [address] [id number] [address] [place] [address], [place] [address] Apr, [facility] [address] [id number] [address] [place] [address] Apr, [facility] [address] [id number] [address] [place] [address] Apr, [facility] [address] [id number] [address] [place] [address] Apr, [facility] [address] [id number] [address] [place] [address] Apr, [facility] [address] [id number] [address] [place] [address] Apr, [facility] [address] [id number] [address] [place] [address], [place] [address] Apr, [facility] [address] [id number] [address] [place] [address] Apr, [facility] [address] [id number] [address] [place] [address] Apr, [facility] [address] [id number] [address] [place] [address], [place] [address] 02 Apr, 2012 [facility] [address] [id number] [address] [place] [address], [place] [address] 19 Mar, 2012 [facility] [address] [id number] [address] [place] [address], [place] [address] 18 Mar, 2012 [facility] [address] [id number] [address] [place] [address], [place] [address] 12 Mar, 2012 [facility] [address] [id number] [address] [place] [address], [place] [address] 12 Mar, 2012 [facility] [address] [id number] [address] [place] [id number] Mar, [facility] [address] [id number] [address] [place] [id number] Mar, [facility] [address] [id number] [address] [place] [address], [place] [address] 04 Mar, 2012 [facility] [address] [id number] [address] [place] [address], [place] [address] 29 Feb, 2012 [facility] [address] [id number] [address] [place] [address], [place] [address] Jan, [facility] [address] [id number] [address] [place] [id number] Jan, [facility] [address] [id number] [address] [place] [id number] Jan, [facility] [address] [id number] [address] [place] [id number] 17 Feb, 2012 [facility] [address] [id number] [address] [place] [address], [place] [address] Jan, [facility] [address] [id number] [address] [place] [address], [place] [address] Jan, [facility] [address] [id number] [address] [place] [address], [place] [address] 14 Feb, 2012 [facility] [address] [id number] [address] [place] [address], [place] [address] Jan, [facility] [address] [id number] [address] [place] [address], [place] [address] Jan, [facility] [address] [id number] [address] [place] [address], [place] [address] Jan, [facility] [address] [id number] [address] [place] [address], [place] [address] Dec, [facility] [address] [id number] [address] [place] [address], [place] [address] Dec, [facility] [address] [id number] [address] [place] [address], [place] [address] Dec, [facility] [address] [id number] [address] [place] [address], [place] [address] Dec, [facility] [address] [id number] [address] [place] [address], [place] [address] Dec, [facility] [address] [id number] [address] [place] [address], [place] [address] Dec, [facility] [address] [id number] [address] [place] [address], [place] [address] Dec, [facility] [address] [id number] [address] [place] [address], [place] [address] 17 Jan, 2012 [facility] [address] [id number] [address] [place] [address], [place] [address] 16 Jan, 2012 [facility] [address] [id number] [address] [place] [address], [place] [address] Dec, [facility] [address] [id number] [address] [place] [address], [place] [address] Dec, [facility] [address] [id number] [address] [place] [address], [place] [address] Dec, [facility] [address] [id number] [address] [place] [address], [place] [address] Dec, [facility] [address] [id number] [address] [place] [address], [place] [address] Dec, [facility] [address] [id number] [address] [place] [address], [place] [address] 25 Dec, 2011 [facility] [address] [id number] [address] [place] [address], [place] [address] 18 Dec, 2011 [facility] [address] [id number] [address] [place] [address], [place] [address] 15 Dec, 2011 [facility] [address] [id number] [address] [place] [address], [place] [address] 06 Dec, 2011 [facility] [address] [id number] [address] [place] [address], [place] [address] 05 Dec, 2011 [facility] [address] [id number] [address] [place] [address], [place] [address] October, [facility] [address] [id number] [address] [place] [address], [place] [address] October, [facility] [address] [id number] [address] [place] [address], [place] [address] October, [facility] [address] [id number] [address] [place] [address], [place] [address] October, [facility] [address] [id number] [address] [place] [address], [place] [address] October, [facility] [address] [id number] [address] [place] [address], [place] [address] October, [facility] [address] [id number] [address] [place] [address], [place] [address] Oct, [facility] [address] [id number] [address] [place] [address], [place] [address] Oct, [facility] [address] [id number] [address] [place] [address], [place] [address] Oct, [facility] [address] [id number] [address] [place] [address], [place] [address] 09 Oct, 2011 [facility] [address] [id number] [address] [place] [address], [place] [address] Oct, [facility] [address] [id number] [address] [place] [address], [place] [address] Oct, [facility] [address] [id number] [address] [place] [address], [place] [address] Oct, [facility] [address] [id number] [address] [place] [address], [place] [address] 29 Sep, 2011 [facility] [address] [id number] [address] [place] [address], [place] [address] 29 Sep, 2011 [facility] [address] [id number] [address] [place] [address], [place] [address] Aug, [facility] [address] [id number] [address] [place] [address], [place] [address] Aug, [facility] [address] [id number] [address] [place] [address], [place] [address] 05 Sep, 2011 [facility] [address] [id number] [address] [place] [address], [place] [address] Aug, [facility] [address] [id number] [address] [place] [address], [place] [address] Aug, [facility] [address] [id number] [address] [place] [address], [place] [address] Aug, [facility] [address] [id number] [address] [place] [address], [place] [address] Aug, [facility] [address] [id number] [address] [place] [address], [place] [address] Jul, [facility] [address] [id number] [address] [place] [address], [place] [address] Jul, [facility] [address] [id number] [address] [place] [address], [place] [address] Jul, [facility] [address] [id number] [address] [place] [address], [place] [address] Jul, [facility] [address] [id number] [address] [place] [address], [place] [address] Jun, [facility] [address] [id number] [address] [place] [address], [place] [address] Jun, [facility] [address] [id number] [address] [place] [address], [place] [address] May, [facility] [address] [id number] [address] [place] [address], [place] [address] May, [facility] [address] [id number] [address] [place] [address], [place] [address] May, [facility] [address] [id number] [address] [place] [address], [place] [address] May, [facility] [address] [id number] [address] [place] [address], [place] [address] May, [facility] [address] [id number] [address] [place] [address], [place] [address] Apr, [facility] [address] [id number] [address] [place] [address], [place] [address] Apr, [facility] [address] [id number] [address] [place] [address], [place] [address] Apr, [facility] [address] [id number] [address] [place] [id number] 15 Jan, 2011 [facility] [address] [id number] [address] [place] [address], [place] [address] Dec, [facility] [address] [id number] [address] [place] [address], [place] [address] October, [facility] [address] [id number] [address] [place] [address], [place] [address] Jun, [facility] [address] [id number] [address] [place] [phone] Apr, [facility] [address] [facility] [id number] [address] [place] [id number] Apr, [facility] [address] [facility] [id number] [address] [place] [phone] Apr, [facility] [address] [facility] [id number] [address] [place] [phone] Jun, IMMUNIZATIONS No Known Immunizations SOCIAL HISTORY Never Assessed REASON FOR VISIT f/u JjournotRN, Stimulant/Benzo contract PLAN OF CARE Activity Details Follow Up 3 Months Reason: f/u VITAL SIGNS Height 69 in 2017-04-24 Weight 209.6 lbs 2017-04-24 Heart Rate 84 bpm 2017-04-24 Respiratory Rate 20 2017-04-24 BMI 30.95 kg/m2 2017-04-24 Blood pressure systolic 118 mmHg 2017-04-24 Blood pressure diastolic 72 mmHg 2017-04-24 MEDICATIONS Medication Instructions Dosage Frequency Start Date End Date Duration S tatus HydrOXYzine HCl 50 mg Orally 3 times a day 1 tablet as needed 8h 30 days Active Gabapentin 800 MG Orally 4 times a day 1 tablet 6h 28 days Active Prazosin HCl 5 MG TAKE ONE CAPSULE BY MOUTH ONCE DAILY AT BEDTIM E Active Valium 5 mg Orally Twice a day 1 tablet as needed 12h Active Plus Iron 29-1 MG Orally Once a day 1 tablet 24h 24 Ap , 2016 90 days Active Adderall 10 mg Orally 3 times a day 1 tablet 8h 19 Apr, 2017 Active Seroquel 400 MG TAKE TWO TABLETS BY MOUTH ONCE DAILY AT BEDTIME Active RESULTS No Results PROCEDURES Procedure Date Ordered Result Body Site [facility] VISIT ESTABLISHED PATIENT Apr 24, 2017 INSTRUCTIONS MEDICATIONS ADMINISTERED No Known Medications MEDICAL (GENERAL) HISTORY Type Description Date Medical History Psychiatric disorder Medical History Hard of hearing Surgical History Neofibrous tumor Surgical History back injection Hospitalization History Intestinal blockage Hospitalization History past psychiatric hospitalizations x2
--- OUTSIDE RECORDS SUMMARY | 2020-01-25 13:37 | XMS REPORT ---
Author Author Quang Mayereen Doctor Organization [facility] Address Unknown Phone Unavailable Care Team Providers Care Geophysical Support Specialist Name Role Phone Migration, Doctor Unavailable Unavailable PROBLEMS Type Condition ICD9-CM Code FOO22-OP Code Onset Dates Condition S tatus SNOMED Code Problem Chronic hepatitis C without hepatic coma B18.2 Active 881292008 Problem Cannabis abuse F12.10 Active 19016 009 Problem Bipolar 1 disorder F31.9 Active 3 43093865 Problem Attention deficit hyperactivity disorder (ADHD), combi luciano type F90.2 Active 18817798 Problem Attention deficit R41.840 Active 76 761042 Problem Hot flashes due to menopause N95.1 A ctive 349571940 Problem H/O laminectomy Z98.89 Active 1616 89448 Problem Other chronic pain G89.29 Active 8 4490033 Problem Anxiety disorder, unspecified type F41.9 Active 531648883 Problem Bipolar disorder, in partial remission, most rec ent episode hypomanic F31.71 Active 525854384 ALLERGIES No Information ENCOUNTERS Encounter Location Date Diagnosis [place] [address] [address] Aug, [facility] [place] [address] [address] Jul, [place] [address] [address] Jul, [facility] [place] [address] [address] Apr, [place] [address] [address] Mar, Hot flashes due to menopause N95.1 ; Anx iety disorder, unspecified type F41.9 ; Low back pain M54.5 and Encounter for immunization Z23 [place] [address] [address] Dec, Other chronic pain G89.29 and Low back p ain M54.5 [facility] [place] [address] [address] October, [facility] [place] [address] [address] October, [facility] [place] [address] [address] October, [facility] [place] [address] [address] October, Other chronic pain G89.29 and Chronic he patitis C without hepatic coma B18.2 [facility] [place] [address] [address] Aug, Bipolar disorder, in partial remission, most recent episode hypomanic F31.71 ; Attention deficit hyperactivity disorder (ADHD), combined type F90.2 and Anxiety disorder, unspecified type F41.9 [facility] [place] [address] [address] Aug, [facility] [place] [address] [address] Aug, Bipolar disorder, in partial remission, most recent episode hypomanic F31.71 [facility] [place] [address] [address] 14 Aug, 2018 [facility] [place] [address] [address] Aug, Bipolar disorder, in partial remission, most recent episode hypomanic F31.71 [facility] [place] [address] [address] Aug, Bipolar disorder, in partial remission, most recent episode hypomanic F31.71 ; Attention deficit hyperactivity disorder (ADHD), combined type F90.2 and Anxiety disorder, unspecified type F41.9 [facility] [place] [address] [address] Aug, Low back pain M54.5 and Pain in left wri st M25.532 [facility] [place] [address] [address] Aug, [facility] [place] [address] [address] Jun, [facility] [place] [address] [address] Apr, Bipolar disorder, in partial remission, most recent episode hypomanic F31.71 [facility] [place] [address] [address] Apr, [place] [address] [address] Apr, Bipolar disorder, in partial remission, most recent episode hypomanic F31.71 ; Attention deficit hyperactivity disorder (ADHD), combined type F90.2 ; Anxiety disorder, unspecified type F41.9 and 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 [place] [address] [address] Apr, Bipolar disorder, in partial remission, most recent episode hypomanic F31.71 [place] [address] [address] Apr, Bipolar disorder, in partial remission, most recent episode hypomanic F31.71 [place] [address] [address] Mar, [place] [address] [address] Mar, Bipolar disorder, in partial remission, most recent episode hypomanic F31.71 ; Encounter for immunization Z23 and Low back pain M54.5 [facility] [place] [address] [address] 17 Mar, 2018 Bipolar disorder, in partial remission, most recent episode hypomanic F31.71 [facility] [place] [address] [address] Mar, Bipolar disorder, in partial remission, most recent episode hypomanic F31.71 [facility] [place] [address] [id number] [place] [address] Jan, Bipolar disorder, in partial remission, most recent episode hypomanic F31.71 [facility] [place] [address] [id number] [place] [address] Jan, Bipolar disorder, in partial remission, most recent episode hypomanic F31.71 [facility] [place] [address] [id number] [place] [address] Dec, Bipolar disorder, in partial remission, most recent episode hypomanic F31.71 [facility] [place] [address] [id number] [place] [address] Dec, Bipolar disorder, in partial remission, most recent episode hypomanic F31.71 ; Attention deficit hyperactivity disorder (ADHD), combined type F90.2 ; Anxiety disorder, unspecified type F41.9 and Other snf (current) drug therapy Z79.899 [facility] [place] [address] [place] [id number] [place] [address] Dec, Bipolar disorder, in partial remission, most recent episode hypomanic F31.71 [facility] [place] [address] [id number] [place] [address] Dec, Bipolar disorder, in partial remission, most recent episode hypomanic F31.71 [facility] [place] [address] [id number] [place] [address] October, Bipolar disorder, in partial remission, most recent episode hypomanic F31.71 [facility] [place] [address] [id number] [place] [address] October, [facility] [place] [address] [id number] [place] [address] October, [facility] [place] [address] [id number] [place] [address] Oct, Bipolar disorder, in partial remission, most recent episode hypomanic F31.71 ; Attention deficit hyperactivity disorder (ADHD), combined type F90.2 ; Anxiety disorder, unspecified type F41.9 and Encounter for drug screening Z02.83 [facility] [place] [address] [place] [id number] [place] [address] Oct, Bipolar disorder, in partial remission, most recent episode hypomanic F31.71 [facility] [place] [address] [place] [id number] [place] [address] Oct, Bipolar disorder, in partial remission, most recent episode hypomanic F31.71 [facility] [place] [address] [address] Aug, Bipolar disorder, in partial remission, most recent episode hypomanic F31.71 [facility] [place] [address] [address] Aug, Bipolar disorder, in partial remission, most recent episode hypomanic F31.71 [facility] [place] [address] [address] Aug, Bipolar disorder, in partial remission, most recent episode hypomanic F31.71 [facility] [place] [address] [place] [id number] [place] [address] Jul, Bipolar disorder, in partial remission, most recent episode hypomanic F31.71 ; Attention deficit hyperactivity disorder (ADHD), combined type F90.2 and Anxiety disorder, unspecified type F41.9 [facility] [place] [address] [place] [id number] [place] [address] Jul, Bipolar disorder, in partial remission, most recent episode hypomanic F31.71 [facility] [place] [address] [place] [id number] [place] [address] Jun, Bipolar disorder, in partial remission, most recent episode hypomanic F31.71 [facility] [place] [address] [place] [id number] [place] [address] May, Bipolar disorder, in partial remission, most recent episode hypomanic F31.71 [facility] [place] [address] [place] [id number] [place] [address] May, Bipolar disorder, in partial remission, most recent episode hypomanic F31.71 [place] [address] [address] Apr, [place] [address] [address] Apr, Bipolar disorder, in partial remission, most recent episode hypomanic F31.71 ; Attention deficit hyperactivity disorder (ADHD), combined type F90.2 ; Anxiety disorder, unspecified type F41.9 and Cannabis abuse F12.10 [place] [address] [address] Apr, Attention deficit hyperactivity disorder (ADHD), combined type F90.2 [place] [address] [address] Mar, Attention deficit hyperactivity disorder (ADHD), combined type F90.2 [place] [address] [address] 14 Mar, 2017 Anxiety disorder, unspecified type F41.9 [place] [address] [address] Jan, Attention deficit hyperactivity disorder (ADHD), combined type F90.[address] [address] Jan, Anxiety disorder, unspecified type F41.[address] [address] Jan, Other chronic pain G89.29 ; Chronic hepa titis C without hepatic coma B18.2 and Bipolar 1 disorder F31.9 [place] [address] [address] Dec, Attention deficit hyperactivity disorder (ADHD), combined type F90.2 [place] [address] [address] Dec, Bipolar disorder, in partial remission, most recent episode hypomanic F31.71 ; Attention deficit hyperactivity disorder (ADHD), combined type F90.2 and Anxiety disorder, unspecified type F41.9 [place] [address] [address] Dec, Bipolar disorder, in partial remission, most recent episode hypomanic F31.71 ; Attention deficit hyperactivity disorder (ADHD), combined type F90.2 and Anxiety disorder, unspecified type F41.9 [place] [address] [address] Dec, Bipolar 1 disorder F31.9 and Attention d eficit R41.840 [place] [address] [address] Oct, Other chronic pain G89.29 ; Alopecia L65 .9 and Screening, lipid Z13.220 [place] [address] [address] Oct, [place] [address] [address] Aug, [place] [address] [address] Aug, Eustachian tube dysfunction, right H69.8 1 ; Vertigo R42 and Other chronic pain G89.29 [place] [address] [address] Aug, [place] [address] [address] Jun, [place] [address] [address] Jun, Low back pain M54.5 and Other chronic pa in G89.29 [place] [address] [address] Jun, [place] [address] [address] May, [place] [address] [address] Jan, [place] [address] [address] Dec, [facility] [place] [address] [address] Dec, [facility] [place] [address] [address] Jun, [facility] [place] [address] [address] Apr, Eustachian tube dysfunction, unspecified laterality H69.80 ; Hot flashes N95.1 and Encounter for immunization Z23 [facility] [place] [address] [address] Jan, [facility] [place] [address] [address] Jan, [facility] [place] [address] [address] Jan, [facility] [place] [address] [address] Jan, [facility] [place] [address] [address] Jan, Encounter to establish care V65.8 ; Bipo lar 1 disorder 296.7 ; Abdominal pain 789.00 ; Constipation 564.00 ; Hard of hearing 389.9 and Drug abuse 305.90 [facility] [place] [address] [address] Dec, [facility] [place] [address] [address] October, [facility] [place] [address] [address] October, [facility] [place] [address] [address] Oct, [facility] [place] [address] [address] Oct, [facility] [place] [address] [address] Oct, [facility] [place] [facility] [address] [id number] [place] [address] Aug, [facility] [place] [facility] [address] [id number] [place] [address] Aug, [facility] [place] [facility] [address] [id number] [place] [address] Aug, [facility] [place] [facility] [address] [id number] [place] [address] Aug, 2014 [facility] [place] [facility] [address] [id number] [place] [address] Aug, 2014 [facility] [place] [facility] [address] [id number] [place] [address] Aug, 2014 [facility] [place] [facility] [address] [id number] [place] [address] Aug, 2014 [facility] [place] [facility] [address] [id number] [place] [address] Aug, 2014 [facility] [place] [facility] [address] [id number] [place] [address] Aug, 2014 [facility] [place] [facility] [address] [id number] [place] [address] Aug, 2014 [facility] [place] [facility] [address] [id number] [place] [address] Aug, 2014 [facility] [place] [facility] [address] [id number] [place] [address] Aug, 2014 [facility] [place] [facility] [address] [id number] [place] [address] Aug, 2014 [facility] [place] [facility] [address] [id number] [place] [address] Aug, 2014 [facility] [place] [facility] [address] [id number] [place] [address] Aug, 2014 [facility] [place] [facility] [address] [id number] [place] [address] Jul, [facility] [place] [facility] [address] [id number] [place] [address] Jul, [facility] [place] [facility] [address] [facility] [id number] [place] [address] Jul, [facility] [place] [facility] [address] [id number] [place] [address] Jul, [facility] [place] [facility] [address] [id number] [place] [address] Jul, [facility] [place] [facility] [address] [id number] [place] [address] Jul, [facility] [place] [facility] [address] [id number] [place] [address] Jul, [facility] [place] [facility] [address] [id number] [place] [address] Jul, [facility] [place] [facility] [address] [id number] [place] [address] Jun, [facility] [place] [facility] [address] [id number] [place] [address] Jun, [facility] [place] [facility] [address] [id number] [place] [address] Jun, [facility] [place] [facility] [address] [id number] [place] [address] Jun, [facility] [place] [facility] [address] [id number] [place] [address] Jun, [facility] [place] [facility] [address] [id number] [place] [address] 15 Jun, 2014 [facility] [place] [facility] [address] [id number] [place] [address] 15 Jun, 2014 [facility] [place] [facility] [address] [id number] [place] [address] Jun, [facility] [place] [facility] [address] [id number] [place] [address] Jun, [facility] [place] [facility] [address] [id number] [place] [address] Jun, [facility] [place] [facility] [address] [id number] [place] [address] Jun, [facility] [place] [facility] [address] [id number] [place] [address] May, [facility] [place] [facility] [address] [id number] [place] [address] May, [facility] [place] [facility] [address] [id number] [place] [address] May, [facility] [place] [facility] [address] [id number] [place] [address] May, [facility] [place] [facility] [address] [id number] [place] [address] May, [facility] [place] [facility] [address] [id number] [place] [address] May, [facility] [place] [facility] [address] [place] [id number] [place] [address] May, [facility] [place] [facility] [address] [id number] [place] [address] Apr, [facility] [place] [facility] [address] [id number] [place] [address] Apr, [facility] [place] [facility] [address] [id number] [place] [address] Apr, [facility] [place] [facility] [address] [id number] [place] [address] Apr, [facility] [place] [facility] [address] [id number] [place] [address] Apr, [facility] [place] [facility] [address] [id number] [place] [address] Apr, [facility] [place] [facility] [address] [place] [id number] [place] [address] Mar, [facility] [place] [facility] [address] [id number] [place] [address] 29 Mar, 2014 [facility] [place] [facility] [address] [id number] [place] [address] Mar, [facility] [place] [facility] [address] [facility] [id number] [place] [address] Mar, [facility] [place] [facility] [address] [facility] [id number] [facility] [place] [address] Mar, [facility] [place] [facility] [address] [id number] [place] [address] Mar, [facility] [place] [facility] [address] [facility] [id number] [place] [address] Jan, [facility] [place] [facility] [address] [facility] [id number] [facility] [place] [address] Jan, [facility] [place] [facility] [address] [id number] [place] [address] Jan, [facility] [place] [facility] [address] [id number] [place] [address] Jan, [facility] [place] [facility] [address] [id number] [place] [address] Dec, [facility] [place] [facility] [address] [facility] [id number] [place] [address] Dec, [facility] [place] [facility] [address] [id number] [place] [address] Dec, [facility] [place] [facility] [address] [id number] [place] [address] Dec, [facility] [place] [facility] [address] [id number] [place] [address] Dec, [facility] [place] [facility] [address] [facility] [id number] [place] [address] Dec, [facility] [place] [facility] [address] [facility] [id number] [place] [address] Dec, [facility] [place] [facility] [address] [facility] [id number] [place] [address] Dec, [facility] [place] [facility] [address] [id number] [place] [address] Dec, [facility] [place] [facility] [address] [facility] [id number] [place] [address] Dec, [facility] [place] [facility] [address] [id number] [place] [address] Dec, [facility] [place] [facility] [address] [id number] [place] [address] Dec, [facility] [place] [facility] [address] [id number] [place] [address] October, [facility] [place] [facility] [address] [id number] [place] [address] October, [facility] [place] [facility] [address] [id number] [place] [address] October, [facility] [place] [facility] [address] [id number] [place] [address] October, [facility] [place] [facility] [address] [id number] [place] [address] October, [facility] [place] [facility] [address] [id number] [place] [address] October, [facility] [place] [facility] [address] [id number] [place] [address] Oct, [facility] [address] [id number] [place] [address] Oct, [facility] [address] [id number] [place] [address] Oct, [facility] [address] [id number] [place] [address] Oct, [facility] [address] [id number] [place] [address] Oct, [facility] [address] [id number] [place] [address] Oct, [facility] [address] [id number] [place] [address] Oct, [facility] [address] [id number] [place] [address] Oct, [facility] [address] [id number] [place] [address] Oct, [facility] [address] [id number] [place] [address] Oct, [facility] [address] [id number] [place] [address] Oct, [facility] [address] [id number] [place] [address] Oct, [facility] [address] [id number] [place] [address] Aug, [facility] [address] [id number] [place] [address] Aug, [facility] [address] [id number] [place] [address] Aug, [facility] [address] [id number] [place] [address] Aug, [facility] [address] [id number] [place] [address] Aug, [facility] [address] [id number] [place] [address] Aug, [facility] [address] [id number] [place] [address] Aug, [facility] [address] [id number] [place] [address] Aug, [facility] [address] [id number] [place] [address] Aug, [facility] [address] [id number] [place] [address] Aug, [facility] [address] [id number] [place] [address] Aug, [facility] [address] [id number] [place] [address] Aug, [facility] [address] [id number] [place] [address] Aug, [facility] [address] [id number] [place] [address] Aug, [facility] [address] [id number] [place] [address] Aug, [facility] [address] [id number] [place] [address] Aug, [facility] [address] [id number] [place] [address] Aug, [facility] [place] [facility] [address] [id number] [place] [address] Aug, [facility] [place] [facility] [address] [id number] [place] [address] Aug, [facility] [place] [facility] [address] [id number] [place] [address] Aug, [facility] [place] [facility] [address] [id number] [place] [address] Aug, [facility] [place] [facility] [address] [id number] [place] [address] Aug, [facility] [place] [facility] [address] [id number] [place] [address] Aug, [facility] [place] [facility] [address] [id number] [place] [address] Aug, [facility] [place] [facility] [address] [id number] [place] [address] Aug, [facility] [place] [facility] [address] [id number] [place] [address] Jul, [facility] [place] [facility] [address] [id number] [place] [address] Jul, [facility] [place] [facility] [address] [id number] [place] [address] Jul, [facility] [place] [facility] [address] [id number] [place] [address] Jul, [facility] [place] [facility] [address] [id number] [place] [address] Jul, [facility] [place] [facility] [address] [id number] [place] [address] Jul, [facility] [place] [facility] [address] [id number] [place] [address] Jul, [facility] [place] [facility] [address] [id number] [place] [address] Jul, [facility] [place] [facility] [address] [facility] [id number] [place] [address] Jul, [facility] [place] [facility] [address] [id number] [place] [address] Jul, [facility] [place] [facility] [address] [id number] [place] [address] Jul, [facility] [place] [facility] [address] [id number] [place] [address] Jul, [facility] [place] [facility] [address] [id number] [place] [address] Jul, [facility] [place] [facility] [address] [id number] [place] [address] Jul, [facility] [place] [facility] [address] [id number] [place] [address] Jul, [facility] [place] [facility] [address] [id number] [place] [address] Jul, [facility] [place] [facility] [address] [id number] [place] [address] Jul, [facility] [place] [facility] [address] [id number] [place] [address] Jul, [facility] [place] [facility] [address] [id number] [place] [address] Jul, [facility] [place] [facility] [address] [id number] [place] [address] Jul, [facility] [place] [facility] [address] [id number] [place] [address] 31 Jun, 2013 [facility] [place] [facility] [address] [facility] [id number] [place] [address] Jun, [facility] [place] [facility] [address] [id number] [place] [address] Jun, [facility] [place] [facility] [address] [id number] [place] [address] Jun, [facility] [place] [facility] [address] [id number] [place] [address] Jun, [facility] [place] [facility] [address] [id number] [place] [address] Jun, [facility] [place] [facility] [address] [id number] [place] [address] Jun, [facility] [place] [facility] [address] [id number] [place] [address] Jun, [facility] [place] [facility] [address] [id number] [place] [address] Jun, [facility] [place] [facility] [address] [id number] [place] [address] Jun, [facility] [place] [facility] [address] [id number] [place] [address] Jun, [facility] [place] [facility] [address] [id number] [place] [address] Jun, [facility] [place] [facility] [address] [id number] [place] [address] Jun, [facility] [place] [facility] [address] [id number] [place] [address] Jun, [facility] [place] [facility] [address] [id number] [place] [address] Jun, [facility] [place] [facility] [address] [id number] [place] [address] Jun, [facility] [place] [facility] [address] [id number] [place] [address] Jun, [facility] [place] [facility] [address] [id number] [place] [address] 17 Jun, 2013 [facility] [place] [facility] [address] [id number] [place] [address] 17 Jun, 2013 [facility] [place] [facility] [address] [id number] [place] [address] Jun, [facility] [place] [facility] [address] [id number] [place] [address] Jun, [facility] [place] [facility] [address] [id number] [place] [address] Jun, [facility] [place] [facility] [address] [id number] [place] [address] Jun, [facility] [place] [facility] [address] [id number] [place] [address] Jun, [facility] [place] [facility] [address] [id number] [place] [address] Jun, [facility] [place] [facility] [address] [id number] [place] [address] Jun, [facility] [place] [facility] [address] [id number] [place] [address] Jun, [facility] [place] [facility] [address] [id number] [place] [address] May, [facility] [place] [facility] [address] [id number] [place] [address] May, [facility] [place] [facility] [address] [id number] [place] [address] May, [facility] [place] [facility] [address] [id number] [place] [address] May, [facility] [place] [facility] [id number] [place] [address] May, [facility] [place] [facility] [address] [id number] [place] [address] May, [facility] [place] [facility] [address] [id number] [place] [address] Apr, [facility] [place] [facility] [address] [id number] [place] [address] 30 Apr, 2012 [facility] [place] [facility] [address] [id number] [place] [address] 30 Apr, 2012 [facility] [place] [facility] [address] [id number] [place] [address] 30 Apr, 2012 [facility] [place] [facility] [address] [id number] [place] [address] Apr, 2012 [facility] [place] [facility] [address] [facility] [id number] [place] [address] 15 Apr, 2012 [facility] [place] [facility] [address] [id number] [place] [address] 15 Apr, 2012 [facility] [place] [facility] [address] [id number] [place] [address] Apr, [facility] [place] [facility] [address] [id number] [place] [address] 26 Mar, 2012 [facility] [place] [facility] [address] [id number] [place] [address] 24 Sep, 2012 [facility] [place] [facility] [address] [id number] [place] [address] 17 Sep, 2012 [facility] [place] [facility] [address] [id number] [place] [address] 17 Sep, 2012 [facility] [place] [facility] [address] [id number] [place] [address] 11 Sep, 2012 [facility] [place] [facility] [address] [id number] [place] [address] 10 Sep, 2012 [facility] [place] [facility] [address] [id number] [place] [address] 05 Sep, 2012 [facility] [place] [facility] [address] [id number] [place] [address] 04 Sep, 2012 [facility] [place] [facility] [address] [id number] [place] [address] 20 Jan, 2012 [facility] [place] [facility] [address] [id number] [facility] [place] [address] Jan, [facility] [place] [facility] [address] [id number] [facility] [place] [address] Jan, [facility] [place] [facility] [address] [facility] [id number] [facility] [place] [address] Jan, [facility] [place] [facility] [address] [id number] [facility] [place] [address] Jan, [facility] [place] [facility] [address] [facility] [id number] [facility] [place] [address] 05 Jan, 2013 [facility] [place] [facility] [address] [facility] [id number] [place] [address] Dec, [facility] [place] [facility] [address] [facility] [id number] [place] [address] 24 Dec, 2012 [facility] [place] [facility] [address] [id number] [facility] [place] [address] Dec, [facility] [place] [facility] [address] [id number] [facility] [place] [address] Dec, [facility] [place] [facility] [address] [facility] [id number] [facility] [place] [address] Dec, [facility] [place] [facility] [address] [id number] [facility] [place] [address] 17 Dec, 2012 [facility] [place] [facility] [address] [id number] [place] [address] 16 Dec, 2012 [facility] [place] [facility] [address] [id number] [facility] [place] [address] 16 Dec, 2012 [facility] [place] [facility] [address] [facility] [id number] [facility] [place] [address] 15 Dec, 2012 [facility] [place] [facility] [address] [id number] [facility] [place] [address] Dec, [facility] [place] [facility] [address] [facility] [id number] [facility] [place] [address] Dec, [facility] [place] [facility] [address] [id number] [facility] [place] [address] Dec, [facility] [place] [facility] [address] [id number] [place] [address] Dec, [facility] [place] [facility] [address] [id number] [place] [address] Dec, [facility] [place] [facility] [address] [id number] [place] [address] Dec, [facility] [place] [facility] [address] [id number] [place] [address] Dec, [facility] [place] [facility] [address] [id number] [place] [address] October, [facility] [place] [facility] [address] [id number] [place] [address] October, [facility] [place] [facility] [address] [id number] [place] [address] October, [facility] [place] [facility] [address] [id number] [place] [address] October, [facility] [place] [facility] [address] [id number] [place] [address] October, [facility] [place] [facility] [address] [id number] [place] [address] October, [facility] [place] [facility] [address] [id number] [place] [address] October, [facility] [place] [facility] [address] [id number] [place] [address] Oct, [facility] [place] [facility] [address] [id number] [place] [address] Oct, [facility] [place] [facility] [address] [id number] [place] [address] Oct, [facility] [place] [facility] [address] [id number] [place] [address] Oct, [facility] [place] [facility] [address] [id number] [place] [address] Oct, [facility] [place] [facility] [address] [id number] [place] [address] Oct, [facility] [address] [facility] [id number] [place] [address] 17 Oct, 2012 [facility] [place] [facility] [address] [id number] [place] [address] 15 Oct, 2012 [facility] [place] [facility] [address] [id number] [place] [address] 12 Oct, 2012 [facility] [place] [facility] [address] [id number] [place] [address] Oct, [facility] [place] [facility] [address] [facility] [id number] [place] [address] Oct, [facility] [place] [facility] [address] [id number] [place] [address] Oct, [facility] [place] [facility] [address] [id number] [place] [address] Aug, [facility] [place] [facility] [address] [id number] [place] [address] Aug, [facility] [place] [facility] [address] [id number] [place] [address] Aug, [facility] [place] [facility] [address] [id number] [place] [address] 06 Aug, 2012 [facility] [place] [facility] [address] [id number] [place] [address] 05 Aug, 2012 [facility] [place] [facility] [address] [id number] [place] [address] 05 Aug, 2012 [facility] [place] [facility] [address] [id number] [place] [address] 20 Aug, 2012 [facility] [place] [facility] [address] [id number] [place] [address] 14 Aug, 2012 [facility] [place] [facility] [address] [id number] [place] [address] 12 Aug, 2012 [facility] [place] [facility] [address] [id number] [place] [address] Aug, [facility] [place] [facility] [address] [id number] [place] [address] 29 Jul, 2012 [facility] [place] [facility] [address] [id number] [place] [address] 15 Jul, 2012 [facility] [place] [facility] [address] [id number] [place] [address] 08 Jul, 2012 [facility] [place] [facility] [address] [id number] [place] [address] 20 Jun, 2012 [facility] [place] [facility] [address] [id number] [place] [address] 18 Jun, 2012 [facility] [place] [facility] [address] [id number] [place] [address] 18 Jun, 2012 [facility] [place] [facility] [address] [id number] [place] [address] 18 Jun, 2012 [facility] [place] [facility] [address] [id number] [place] [address] 18 Jun, 2012 [facility] [place] [facility] [address] [id number] [place] [address] 14 Jun, 2012 [facility] [place] [facility] [address] [id number] [place] [address] 14 Jun, 2012 [facility] [place] [facility] [address] [id number] [place] [address] 13 Jun, 2012 [facility] [place] [facility] [address] [id number] [place] [address] 13 Jun, 2012 [facility] [place] [facility] [address] [id number] [place] [address] 11 Jun, 2012 [facility] [place] [facility] [address] [id number] [place] [address] 11 Jun, 2012 [facility] [place] [facility] [address] [id number] [place] [address] 11 Jun, 2012 [facility] [place] [facility] [address] [id number] [place] [address] 11 Jun, 2012 [facility] [place] [facility] [address] [id number] [place] [address] 07 Jun, 2012 [facility] [place] [facility] [address] [id number] [place] [address] Jun, [facility] [place] [facility] [address] [id number] [place] [address] Jun, [facility] [place] [facility] [address] [id number] [place] [address] Jun, [facility] [place] [facility] [address] [id number] [place] [address] Jun, [facility] [place] [facility] [address] [id number] [place] [address] Jun, [facility] [place] [facility] [address] [id number] [place] [address] Jun, [facility] [place] [facility] [address] [id number] [place] [address] Jun, [facility] [place] [facility] [address] [id number] [place] [address] Jun, [facility] [place] [facility] [address] [id number] [place] [address] Jun, [facility] [place] [facility] [address] [id number] [place] [address] May, [facility] [place] [facility] [address] [id number] [place] [address] May, [facility] [place] [facility] [address] [id number] [place] [address] May, [facility] [place] [facility] [address] [id number] [place] [address] May, [facility] [place] [facility] [address] [id number] [place] [address] May, [facility] [place] [facility] [address] [id number] [place] [address] May, [facility] [place] [facility] [address] [id number] [place] [address] May, [facility] [place] [facility] [address] [id number] [place] [address] May, [facility] [place] [facility] [address] [facility] [id number] [place] [address] Apr, 2011 [facility] [place] [facility] [address] [id number] [place] [address] Apr, [facility] [place] [facility] [address] [id number] [place] [address] Apr, 2011 [facility] [place] [facility] [address] [id number] [place] [address] Apr, [facility] [place] [facility] [address] [facility] [id number] [place] [address] Apr, [facility] [place] [facility] [address] [id number] [place] [address] Apr, [facility] [place] [facility] [address] [id number] [place] [address] Apr, [facility] [place] [facility] [address] [id number] [place] [address] Apr, [facility] [place] [facility] [address] [id number] [place] [address] 09 Apr, 2012 [facility] [place] [facility] [address] [id number] [place] [address] 08 Apr, 2012 [facility] [place] [facility] [address] [id number] [place] [address] 04 Apr, 2012 [facility] [place] [facility] [address] [id number] [place] [address] 02 Apr, 2012 [facility] [place] [facility] [address] [id number] [place] [address] 19 Mar, 2011 [facility] [place] [facility] [address] [facility] [id number] [place] [address] 18 Sep, 2011 [facility] [place] [facility] [address] [id number] [place] [address] 12 Sep, 2011 [facility] [place] [facility] [address] [id number] [place] [address] 12 Mar, 2011 [facility] [place] [facility] [address] [facility] [id number] [place] [id number] Mar, [facility] [place] [facility] [address] [id number] [place] [id number] Mar, [facility] [place] [facility] [address] [id number] [place] [address] Mar, [facility] [place] [facility] [address] [id number] [place] [address] Jan, [facility] [place] [facility] [address] [id number] [place] [address] Jan, [facility] [place] [facility] [address] [id number] [place] [id number] Jan, [facility] [place] [address] [id number] [place] [address] , [place] [id number] Jan, [facility] [address] [id number] [place] [address] Jan, [facility] [address] [id number] [place] [address] Jan, [facility] [address] [id number] [place] [address] Jan, [facility] [address] [id number] [place] [address] Jan, [facility] [address] [id number] [place] [address] Jan, [facility] [address] [id number] [place] [address] Jan, [facility] [address] [id number] [place] [address] Jan, [facility] [address] [id number] [place] [address] Dec, [facility] [address] [id number] [place] [address] Dec, [facility] [address] [id number] [place] [address] Dec, [facility] [address] [id number] [place] [address] 26 Jan, 2012 [facility] [address] [id number] [place] [address] 20 Jan, 2012 [facility] [address] [id number] [place] [address] 19 Jan, 2012 [facility] [address] [id number] [place] [address] 18 Jan, 2012 [facility] [address] [id number] [place] [address] 17 Jan, 2012 [facility] [address] [facility] [id number] [place] [address] 16 Jan, 2012 [facility] [address] [id number] [place] [address] 13 Jan, 2012 [facility] [address] [id number] [place] [address] Dec, [facility] [address] [id number] [place] [address] Dec, [facility] [address] [id number] [place] [address] Dec, [facility] [address] [id number] [place] [address] Dec, [facility] [address] [id number] [place] [address] Dec, [facility] [address] [id number] [place] [address] Dec, [facility] [address] [id number] [place] [address] 15 Dec, 2011 [facility] [address] [id number] [place] [address] 06 Dec, 2011 [facility] [address] [id number] [place] [address] 05 Dec, 2011 [facility] [address] [id number] [place] [address] October, [facility] [address] [id number] [place] [address] October, [facility] [address] [id number] [place] [address] October, [facility] [address] [id number] [place] [address] October, [facility] [address] [id number] [place] [address] October, [facility] [address] [id number] [place] [address] October, [facility] [address] [id number] [place] [address] Oct, [facility] [address] [id number] [place] [address] Oct, [facility] [address] [id number] [place] [address] Oct, [facility] [address] [id number] [place] [address] Oct, [facility] [address] [id number] [place] [address] Oct, [facility] [address] [id number] [place] [address] Oct, [facility] [address] [id number] [place] [address] Oct, [facility] [address] [id number] [place] [address] Aug, [facility] [address] [id number] [place] [address] Aug, [facility] [address] [id number] [place] [address] Aug, [facility] [address] [id number] [place] [address] Aug, [facility] [address] [id number] [place] [address] Aug, [facility] [address] [id number] [place] [address] Aug, [facility] [address] [id number] [place] [address] Aug, [facility] [address] [id number] [place] [address] Aug, [facility] [address] [id number] [place] [address] Aug, [facility] [address] [id number] [place] [address] Jul, [facility] [address] [id number] [place] [address] Jul, [facility] [address] [id number] [place] [address] Jul, [facility] [address] [id number] [place] [address] Jul, [facility] [address] [id number] [place] [address] Jun, [facility] [address] [id number] [place] [address] Jun, [facility] [address] [id number] [place] [address] May, [facility] [address] [id number] [place] [address] May, [facility] [address] [id number] [place] [address] May, [facility] [address] [id number] [place] [address] May, [facility] [address] [id number] [place] [address] May, [facility] [address] [id number] [place] [address] Apr, [facility] [address] [id number] [place] [address] 28 Apr, 2011 [facility] [place] [address] [id number] [place] [address] Apr, [facility] [place] [address] [id number] [place] [address] Jan, [facility] [place] [address] [id number] [place] [address] Dec, [facility] [place] [id number] [place] [address] October, [facility] [place] [address] [id number] [place] [address] Jun, [facility] [place] [address] [id number] [place] [address] Apr, [facility] [place] [address] [id number] [place] [address] Apr, [facility] [place] [address] [id number] [place] [address] Apr, [facility] [place] [address] [id number] [place] [address] Jun, IMMUNIZATIONS No Known Immunizations SOCIAL HISTORY [...]
--- OUTSIDE RECORDS SUMMARY | 2020-01-25 13:37 | XMS REPORT ---
Author Author Ana HALE Organization [facility] Address [address] [place] [address] Care Team Providers Care Accounts Receivable Analyst Name Role Phone JAJA HALE Unavailable PROBLEMS Type Condition ICD9-CM Code [id number] Code Onset Dates Condition S tatus SNOMED Code Problem Attention deficit R41.840 Active 76 286791 Problem Cannabis abuse F12.10 Active 02177 009 Problem Chronic hepatitis C without hepatic coma B18.2 Active 184777889 Problem Attention deficit hyperactivity disorder (ADHD), combi luciano type F90.2 Active 21338720 Problem Bipolar disorder, in partial remission, most rec ent episode hypomanic F31.71 Active 611795015 Problem H/O laminectomy Z98.89 Active 1616 62493 Problem Bipolar 1 disorder F31.9 Active 3 55952848 Problem Anxiety disorder, unspecified type F41.9 Active 636820790 Problem Other chronic pain G89.29 Active 8 5636018 ALLERGIES No Information SOCIAL HISTORY Never Assessed PLAN OF CARE VITAL SIGNS MEDICATIONS Unknown Medications RESULTS No Results PROCEDURES No Known procedures IMMUNIZATIONS No Known Immunizations MEDICAL (GENERAL) HISTORY Type Description Date Medical History Psychiatric disorder Medical History Hard of hearing Surgical History Neofibrous tumor Surgical History back injection Hospitalization History Intestinal blockage Hospitalization History past psychiatric hospitalizations x2
--- OUTSIDE RECORDS SUMMARY | 2020-01-25 13:38 | XMS REPORT ---
Author Author FRANCINE Ana SUTHERLANDN [facility] Address [address] [place] [address] Care Team Providers Care Community Living Instructor Name Role Phone Jackie ESCAMILLAYEN Unavailable PROBLEMS Type Condition ICD9-CM Code [id number] Code Onset Dates Condition S tatus SNOMED Code Problem Attention deficit R41.840 Active 76 882449 Problem Cannabis abuse F12.10 Active 99801 009 Problem Chronic hepatitis C without hepatic coma B18.2 Active 651539331 Problem Attention deficit hyperactivity disorder (ADHD), combi luciano type F90.2 Active 06714913 Problem Bipolar disorder, in partial remission, most rec ent episode hypomanic F31.71 Active 992159948 Problem H/O laminectomy Z98.89 Active 1616 61835 Problem Bipolar 1 disorder F31.9 Active 3 72990874 Problem Anxiety disorder, unspecified type F41.9 Active 321203621 Problem Other chronic pain G89.29 Active 8 7926106 ALLERGIES Substance Reaction Event Type Date Status Zyprexa Unknown Drug Allergy Jul, Active Amitiza Unknown Non Drug Allergy Jul, Active Hydrocodone Failed UDS (opiates, & THC) Non Drug Allergy Jul, 018 Active Benzodiazepines Failed UDS (opiates, & THC) Non Drug Allergy Jul Active ENCOUNTERS Encounter Location Date Diagnosis [facility] [address] [facility] [id number] [address] [place] [address] Dec, [facility] [address] [facility] [id number] [address] [place] [address] Dec, Bipolar disorder, in partial remission, most recent episode hypomanic F31.71 [facility] [address] [facility] [id number] [address] [place] [address] October, Bipolar disorder, in partial remission, most recent episode hypomanic F31.71 [facility] [address] [id number] [address] [place] [address] October, [facility] [address] [id number] [address] [place] [address] October, [facility] [address] [facility] [id number] [address] [place] [address] Oct, Bipolar disorder, in partial remission, most recent episode hypomanic F31.71 ; Attention deficit hyperactivity disorder (ADHD), combined type F90.2 ; Anxiety disorder, unspecified type F41.9 and Encounter for drug screening Z02.83 [facility] [address] [id number] [address] [place] [address] Oct, Bipolar disorder, in partial remission, most recent episode hypomanic F31.71 [facility] [address] [facility] [id number] [address] [place] [address] Oct, Bipolar disorder, in partial remission, most recent episode hypomanic F31.71 [facility] [address] [facility] [id number] [address] [place] [address] Aug, Bipolar disorder, in partial remission, most recent episode hypomanic F31.71 [facility] [address] [facility] [id number] [address] [place] [address] Aug, Bipolar disorder, in partial remission, most recent episode hypomanic F31.71 [facility] [address] [facility] [id number] [address] [place] [address] Aug, Bipolar disorder, in partial remission, most recent episode hypomanic F31.71 [facility] [address] [id number] [address] [place] [address] Jul, Bipolar disorder, in partial remission, most recent episode hypomanic F31.71 ; Attention deficit hyperactivity disorder (ADHD), combined type F90.2 and Anxiety disorder, unspecified type F41.9 [facility] [address] [id number] [address] [place] [address] Jul, Bipolar disorder, in partial remission, most recent episode hypomanic F31.71 [facility] [address] [id number] [address] [place] [address] Jun, Bipolar disorder, in partial remission, most recent episode hypomanic F31.71 [facility] [address] [id number] [address] [place] [address] May, Bipolar disorder, in partial remission, most recent episode hypomanic F31.71 [facility] [address] [id number] [address] [place] [address] May, Bipolar disorder, in partial remission, most recent episode hypomanic F31.71 [facility] [address] [id number] [address] [place] [address] Apr, [facility] [address] [facility] [id number] [address] [place] [address] Apr, Bipolar disorder, in partial remission, most recent episode hypomanic F31.71 ; Attention deficit hyperactivity disorder (ADHD), combined type F90.2 ; Anxiety disorder, unspecified type F41.9 and Cannabis abuse F12.10 [facility] [address] [id number] [address] [place] [address] Apr, Attention deficit hyperactiv ity disorder (ADHD), combined type F90.2 [facility] [address] [facility] [id number] [address] [place] [address] Mar, Attention deficit hyperactiv ity disorder (ADHD), combined type F90.2 [facility] [address] [id number] [address] [place] [address] 14 Mar, 2017 Anxiety disorder, unspecifie d type F41.9 [facility] [address] [id number] [address] [place] [address] 18 Jan, 2017 Attention deficit hyperactiv ity disorder (ADHD), combined type F90.2 [facility] [address] [id number] [address] [place] [address] 16 Jan, 2017 Anxiety disorder, unspecifie d type F41.9 [facility] [address] [place] [id number] [address] [place] [address] Jan, Other chronic pain G89.29 ; Chronic hepatitis C without hepatic coma B18.2 and Bipolar 1 disorder F31.9 [facility] [address] [facility] [id number] [address] [place] [address] Dec, Attention deficit hyperactiv ity disorder (ADHD), combined type F90.2 [facility] [address] [place] [id number] [address] [place] [address] Dec, Bipolar disorder, in partial remission, most recent episode hypomanic F31.71 ; Attention deficit hyperactivity disorder (ADHD), combined type F90.2 and Anxiety disorder, unspecified type F41.9 [place] [address] [place] [id number] [place] [address] Dec, Bipolar disorder, in partial remission, most recent episode hypomanic F31.71 ; Attention deficit hyperactivity disorder (ADHD), combined type F90.2 and Anxiety disorder, unspecified type F41.9 [place] [address] [place] [id number] [address] [place] [address] Dec, Bipolar 1 disorder F31.9 and Attention deficit R41.840 [place] [place] [address] [place] [id number] [place] [address] Oct, Other chronic pain G89.29 ; Alopecia L65.9 and Screening, lipid Z13.220 [place] [address] [place] [id number] [address] [place] [address] Oct, [place] [address] [place] [id number] [address] [place] [address] Aug, [place] [address] [address] Aug, Eustachian tube dysfunction, right H69.81 ; Vertigo R42 and Other chronic pain G89.29 [place] [address] [place] [id number] [address] [place] [address] Aug, [place] [address] [id number] [address] [place] [address] Jun, [facility] [address] [id number] [address] [place] [address] Jun, Low back pain M54.5 and Othe r chronic pain G89.29 [facility] [address] [id number] [address] [place] [address] Jun, [facility] [address] [id number] [address] [place] [address] May, [facility] [address] [id number] [address] [place] [address] Jan, [facility] [address] [id number] [address] [place] [address] Dec, [facility] [address] [id number] [address] [place] [address] Dec, [facility] [address] [id number] [address] [place] [address] Jun, [facility] [address] [facility] [id number] [address] [place] [address] Apr, Eustachian tube dysfunction, unspecified laterality H69.80 ; Hot flashes N95.1 and Encounter for immunization Z23 [facility] [address] [id number] [address] [place] [address] Jan, [facility] [address] [id number] [address] [place] [address] Jan, [facility] [address] [id number] [address] [place] [address] Jan, [facility] [address] [facility] [id number] [address] [place] [address] Jan, [facility] [address] [facility] [id number] [address] [place] [address] Jan, Encounter to establish care V65.8 ; Bipolar 1 disorder 296.7 ; Abdominal pain 789.00 ; Constipation 564.00 ; Hard of hearing 389.9 and Drug abuse 305.90 [facility] [address] [id number] [address] [place] [address] Dec, [facility] [address] [id number] [address] [place] [address] October, [facility] [address] [id number] [address] [place] [address] October, [facility] [address] [id number] [address] [place] [address] Oct, [facility] [address] [id number] [address] [place] [address] Oct, [facility] [address] [facility] [id number] [address] [place] [address] Oct, [facility] [address] [id number] [address] [place] [address] Aug, [facility] [address] [id number] [address] [place] [address] Aug, [facility] [address] [facility] [id number] [address] [place] [address] Aug, [facility] [address] [facility] [id number] [address] [place] [address] Aug, [facility] [address] [id number] [address] [place] [address] Aug, [facility] [address] [id number] [address] [place] [address] Aug, [facility] [address] [id number] [address] [place] [address] Aug, [facility] [address] [facility] [id number] [address] [place] [address] Aug, [facility] [address] [id number] [address] [place] [address] [place] [address] Aug, 2014 [facility] [address] [id number] [address] [place] [address], [place] [address] Aug, 2014 [facility] [address] [id number] [address] [place] [address], [place] [address] Aug, 2014 [facility] [address] [id number] [address] [place] [address], [place] [address] Aug, 2014 [facility] [address] [id number] [address] [place] [address], [place] [address] Aug, 2014 [facility] [address] [id number] [address] [place] [address], [place] [address] Aug, 2014 [facility] [address] [id number] [address] [place] [address], [place] [address] Aug, [facility] [address] [id number] [address] [place] [address], [place] [address] Jul, [facility] [address] [id number] [address] [place] [address], [place] [address] Jul, [facility] [address] [id number] [address] [place] [address], [place] [address] Jul, [facility] [address] [id number] [address] [place] [address], [place] [address] Jul, [facility] [address] [id number] [address] [place] [address], [place] [address] Jul, [facility] [address] [id number] [address] [place] [address], [place] [address] Jul, [facility] [address] [id number] [address] [place] [address], [place] [address] Jul, [facility] [address] [id number] [address] [place] [address], [place] [address] Jul, [facility] [address] [id number] [address] [place] [address], [place] [address] Jun, [facility] [address] [id number] [address] [place] [address], [place] [address] Jun, [facility] [address] [id number] [address] [place] [address], [place] [address] Jun, [facility] [address] [id number] [address] [place] [address], [place] [address] Jun, [facility] [address] [id number] [address] [place] [address], [place] [address] Jun, [facility] [address] [id number] [address] [place] [address], [place] [address] Jun, [facility] [address] [id number] [address] [place] [address], [place] [address] Jun, [facility] [address] [id number] [address] [place] [address], [place] [address] Jun, [facility] [address] [id number] [address] [place] [address], [place] [address] Jun, [facility] [address] [id number] [address] [place] [address], [place] [address] Jun, [facility] [address] [id number] [address] [place] [address], [place] [address] Jun, [facility] [address] [id number] [address] [place] [address], [place] [address] May, [facility] [address] [id number] [address] [place] [address], [place] [address] May, [facility] [address] [id number] [address] [place] [address], [place] [address] May, [facility] [address] [id number] [address] [place] [address], [place] [address] May, [facility] [address] [id number] [address] [place] [address], [place] [address] May, [facility] [address] [id number] [address] [place] [address] May, [facility] [address] [id number] [address] [place] [address], [place] [address] May, [facility] [address] [id number] [address] [place] [address], [place] [address] Apr, [facility] [address] [id number] [address] [place] [address], [place] [address] Apr, [facility] [address] [id number] [address] [place] [address], [place] [address] Apr, [facility] [address] [id number] [address] [place] [address], [place] [address] Apr, [facility] [address] [id number] [address] [place] [address], [place] [address] Apr, [facility] [address] [id number] [address] [place] [address], [place] [address] Apr, [facility] [address] [id number] [address] [place] [address], [place] [address] Mar, [facility] [address] [id number] [address] [place] [address], [place] [address] Mar, [facility] [address] [id number] [address] [place] [address], [place] [address] Mar, [facility] [address] [id number] [address] [place] [address], [place] [address] Mar, [facility] [address] [id number] [address] [place] [address], [place] [address] Mar, [facility] [address] [id number] [address] [place] [address], [place] [address] Mar, [facility] [address] [id number] [address] [place] [address], [place] [address] Jan, [facility] [address] [id number] [address] [place] [address], [place] [address] Jan, [facility] [address] [id number] [facility] [place] [address] Jan, [facility] [address] [id number] [facility] [place] [address] Jan, [facility] [address] [id number] [facility] [place] [address] Dec, [facility] [address] [id number] [address] [place] [address], [place] [address] Dec, [facility] [address] [id number] [address] [place] [address], [place] [address] Dec, [facility] [address] [id number] [address] [place] [address], [place] [address] Dec, [facility] [address] [id number] [address] [place] [address], [place] [address] Dec, [facility] [address] [id number] [address] [place] [address], [place] [address] Dec, [facility] [address] [id number] [address] [place] [address], [place] [address] Dec, [facility] [address] [id number] [address] [place] [address], [place] [address] Dec, [facility] [address] [id number] [address] [place] [address], [place] [address] Dec, [facility] [address] [id number] [address] [place] [address], [place] [address] Dec, [facility] [address] [id number] [address] [place] [address], [place] [address] Dec, [facility] [address] [id number] [address] [place] [address], [place] [address] Dec, [facility] [address] [id number] [address] [place] [address], [place] [address] October, [facility] [address] [id number] [address] [place] [address], [place] [address] October, [facility] [address] [id number] [facility] [place] [address] October, [facility] [address] [id number] [address] [place] [address], [place] [address] October, [facility] [address] [id number] [address] [place] [address], [place] [address] October, [facility] [address] [id number] [address] [place] [address], [place] [address] October, [facility] [address] [id number] [address] [place] [address], [place] [address] Oct, [facility] [address] [id number] [address] [place] [address], [place] [address] Oct, [facility] [address] [id number] [address] [place] [address], [place] [address] Oct, [facility] [address] [id number] [address] [place] [address], [place] [address] Oct, [facility] [address] [id number] [address] [place] [address], [place] [address] Oct, [facility] [address] [id number] [address] [place] [address], [place] [address] Oct, [facility] [address] [id number] [address] [place] [address], [place] [address] Oct, [facility] [address] [id number] [address] [place] [address], [place] [address] Oct, [facility] [address] [id number] [address] [place] [address], [place] [address] Oct, [facility] [address] [id number] [address] [place] [address], [place] [address] Oct, [facility] [address] [id number] [address] [place] [address], [place] [address] Oct, [facility] [address] [id number] [facility] [place] [address] 08 Oct, 2013 [facility] [address] [id number] [address] [place] [address], [place] [address] 15 Aug, 2013 [facility] [address] [id number] [address] [place] [address], [place] [address] 15 Aug, 2013 [facility] [address] [id number] [address] [place] [address], [place] [address] Aug, [facility] [address] [id number] [address] [place] [address], [place] [address] Aug, [facility] [address] [id number] [address] [place] [address], [place] [address] 05 Aug, 2013 [facility] [address] [id number] [address] [place] [address], [place] [address] 05 Aug, 2013 [facility] [address] [id number] [address] [place] [address], [place] [address] 04 Aug, 2013 [facility] [address] [id number] [address] [place] [address], [place] [address] Aug, [facility] [address] [id number] [address] [place] [address], [place] [address] Aug, [facility] [address] [id number] [address] [place] [address], [place] [address] 24 Aug, 2013 [facility] [address] [id number] [address] [place] [address], [place] [address] 24 Aug, 2013 [facility] [address] [id number] [address] [place] [address], [place] [address] Aug, [facility] [address] [id number] [address] [place] [address], [place] [address] Aug, [facility] [address] [id number] [address] [place] [address], [place] [address] 20 Aug, 2013 [facility] [address] [id number] [address] [place] [address], [place] [address] 14 Aug, 2013 [facility] [address] [id number] [facility] [place] [address] 14 Aug, 2013 [facility] [address] [id number] [address] [place] [address], [place] [address] 14 Aug, 2013 [facility] [address] [id number] [address] [place] [address], [place] [address] 14 Aug, 2013 [facility] [address] [id number] [address] [place] [address], [place] [address] 07 Aug, 2013 [facility] [address] [id number] [address] [place] [address], [place] [address] 07 Aug, 2013 [facility] [address] [id number] [address] [place] [address], [place] [address] 06 Aug, 2013 [facility] [address] [id number] [address] [place] [address], [place] [address] 06 Aug, 2013 [facility] [address] [id number] [address] [place] [address], [place] [address] 04 Aug, 2013 [facility] [address] [id number] [address] [place] [address], [place] [address] 04 Aug, 2013 [facility] [address] [id number] [address] [place] [address], [place] [address] Aug, [facility] [address] [id number] [address] [place] [address], [place] [address] Jul, [facility] [address] [id number] [address] [place] [address], [place] [address] Jul, [facility] [address] [id number] [address] [place] [address], [place] [address] Jul, [facility] [address] [id number] [address] [place] [address], [place] [address] Jul, [facility] [address] [id number] [address] [place] [address], [place] [address] Jul, [facility] [address] [id number] [address] [place] [address], [place] [address] Jul, [facility] [address] [id number] [address] [place] [address], [place] [address] Jul, [facility] [address] [id number] [address] [place] [address], [place] [address] Jul, [facility] [address] [id number] [address] [place] [address], [place] [address] Jul, [facility] [address] [id number] [address] [place] [address], [place] [address] Jul, [facility] [address] [id number] [address] [place] [address], [place] [address] Jul, [facility] [address] [id number] [address] [place] [address], [place] [address] Jul, [facility] [address] [id number] [address] [place] [address], [place] [address] Jul, [facility] [address] [id number] [address] [place] [address] [address] Jul[facility] [address] [id number] [address] [place] [address], [place] [address] Jul, [facility] [address] [id number] [address] [place] [address], [place] [address] Jul, [facility] [address] [id number] [address] [place] [address], [place] [address] Jul, [facility] [address] [id number] [address] [place] [address], [place] [address] Jul, [facility] [address] [id number] [address] [place] [address], [place] [address] Jul, [facility] [address] [id number] [address] [place] [address], [place] [address] Jul, [facility] [address] [id number] [address] [place] [address], [place] [address] Jun, [facility] [address] [id number] [address] [place] [address], [place] [address] Jun, [facility] [address] [id number] [address] [place] [address], [place] [address] Jun, [facility] [address] [id number] [address] [place] [address], [place] [address] Jun, [facility] [address] [id number] [address] [place] [address], [place] [address] Jun, [facility] [address] [id number] [address] [place] [address], [place] [address] Jun, [facility] [address] [id number] [address] [place] [address], [place] [address] Jun, [facility] [address] [id number] [address] [place] [address], [place] [address] Jun, [facility] [address] [id number] [address] [place] [address], [place] [address] Jun, [facility] [address] [id number] [address] [place] [address], [place] [address] Jun, [facility] [address] [id number] [address] [place] [address], [place] [address] Jun, [facility] [address] [id number] [address] [place] [address], [place] [address] Jun, [facility] [address] [id number] [address] [place] [address], [place] [address] Jun, [facility] [address] [id number] [address] [place] [address], [place] [address] Jun, [facility] [address] [id number] [address] [place] [address], [place] [address] Jun, [facility] [address] [id number] [address] [place] [address], [place] [address] 18 Jun, 2013 [facility] [address] [id number] [address] [place] [address], [place] [address] 18 Jun, 2013 [facility] [address] [id number] [address] [place] [address], [place] [address] 17 Jun, 2013 [facility] [address] [id number] [address] [place] [address], [place] [address] 17 Jun, 2013 [facility] [address] [id number] [address] [place] [address], [place] [address] 13 Jun, 2013 [facility] [address] [id number] [address] [place] [address], [place] [address] 12 Jun, 2013 [facility] [address] [id number] [address] [place] [address], [place] [address] 12 Jun, 2013 [facility] [address] [id number] [address] [place] [address], [place] [address] 09 Jun, 2013 [facility] [address] [id number] [address] [place] [address], [place] [address] 05 Jun, 2013 [facility] [address] [id number] [address] [place] [address], [place] [address] 05 Jun, 2013 [facility] [address] [id number] [address] [place] [address], [place] [address] 04 Jun, 2013 [facility] [address] [id number] [address] [place] [address], [place] [address] 04 Jun, 2013 [facility] [address] [id number] [address] [place] [address], [place] [address] 17 May, 2013 [facility] [address] [id number] [address] [place] [address], [place] [address] 17 May, 2013 [facility] [address] [id number] [address] [place] [address], [place] [address] May, [facility] [address] [id number] [address] [place] [address], [place] [address] May, [facility] [address] [id number] [address] [place] [address], [place] [address] May, [facility] [address] [id number] [address] [place] [address], [place] [address] May, [facility] [address] [id number] [address] [place] [address], [place] [address] 30 Apr, 2013 [facility] [address] [id number] [address] [place] [address], [place] [address] Apr, [facility] [address] [id number] [address] [place] [address], [place] [address] Apr, [facility] [address] [id number] [address] [place] [address], [place] [address] Apr, [facility] [address] [id number] [address] [place] [address], [place] [address] Apr, [facility] [address] [id number] [address] [place] [address], [place] [address] Apr, [facility] [address] [id number] [address] [place] [address], [place] [address] 15 Apr, 2013 [facility] [address] [id number] [address] [place] [address], [place] [address] Apr, [facility] [address] [id number] [address] [place] [address], [place] [address] 26 Mar, 2013 [facility] [address] [id number] [address] [place] [address] [address] 24 Sep2012 [facility] [address] [id number] [address] [place] [address], [place] [address] 17 Sep, 2012 [facility] [address] [id number] [address] [place] [address], [place] [address] 17 Sep, 2012 [facility] [address] [id number] [address] [place] [address], [place] [address] 11 Mar, 2012 [facility] [address] [id number] [address] [place] [address], [place] [address] 10 Mar, 2012 [facility] [address] [id number] [address] [place] [address], [place] [address] 05 Mar, 2013 [facility] [address] [id number] [address] [place] [address], [place] [address] Mar, [facility] [address] [id number] [address] [place] [address], [place] [address] Jan, [facility] [address] [id number] [address] [place] [address], [place] [address] Jan, [facility] [address] [id number] [address] [place] [address], [place] [address] Jan, [facility] [address] [id number] [address] [place] [address], [place] [address] Jan, [facility] [address] [id number] [address] [place] [address], [place] [address] Jan, [facility] [address] [id number] [address] [place] [address], [place] [address] Jan, [facility] [address] [id number] [address] [place] [address], [place] [address] Dec, [facility] [address] [id number] [address] [place] [address], [place] [address] Dec, [facility] [address] [id number] [address] [place] [address], [place] [address] Dec, [facility] [address] [id number] [address] [place] [address], [place] [address] Dec, [facility] [address] [id number] [address] [place] [address], [place] [address] Dec, [facility] [address] [id number] [address] [place] [address], [place] [address] 17 Dec, 2012 [facility] [address] [id number] [address] [place] [address], [place] [address] Dec, [facility] [address] [id number] [address] [place] [address], [place] [address] Dec, [facility] [address] [id number] [address] [place] [address], [place] [address] 15 Dec, 2012 [facility] [address] [id number] [address] [place] [address], [place] [address] Dec, [facility] [address] [id number] [address] [place] [address], [place] [address] Dec, [facility] [address] [id number] [address] [place] [address], [place] [address] Dec, [facility] [address] [id number] [address] [place] [address], [place] [address] Dec, [facility] [address] [id number] [address] [place] [address], [place] [address] Dec, [facility] [address] [id number] [address] [place] [address], [place] [address] Dec, [facility] [address] [id number] [address] [place] [address], [place] [address] Dec, [facility] [address] [id number] [address] [place] [address], [place] [address] October, [facility] [address] [id number] [address] [place] [address], [place] [address] October, [facility] [address] [id number] [address] [place] [address], [place] [address] October, [facility] [address] [id number] [address] [place] [address], [place] [address] October, [facility] [address] [id number] [address] [place] [address], [place] [address] October, [facility] [address] [id number] [address] [place] [address], [place] [address] October, [facility] [address] [id number] [address] [place] [address], [place] [address] October, [facility] [address] [id number] [address] [place] [address], [place] [address] Oct, [facility] [address] [id number] [address] [place] [address], [place] [address] Oct, [facility] [address] [id number] [address] [place] [address], [place] [address] 24 Oct, 2012 [facility] [address] [id number] [address] [place] [address], [place] [address] Oct, [facility] [address] [id number] [address] [place] [address], [place] [address] Oct, [facility] [address] [id number] [address] [place] [address], [place] [address] 18 Oct, 2012 [facility] [address] [id number] [address] [place] [address], [place] [address] 17 Oct, 2012 [facility] [address] [id number] [address] [place] [address], [place] [address] 15 Oct, 2012 [facility] [address] [id number] [address] [place] [address], [place] [address] Oct, [facility] [address] [id number] [address] [place] [address], [place] [address] Oct, [facility] [address] [id number] [address] [place] [address], [place] [address] Oct, [facility] [address] [id number] [address] [place] [address], [place] [address] Oct, [facility] [address] [id number] [address] [place] [address], [place] [address] Aug, [facility] [address] [id number] [address] [place] [address], [place] [address] Aug, [facility] [address] [id number] [address] [place] [address], [place] [address] Aug, [facility] [address] [id number] [address] [place] [address], [place] [address] 06 Aug, 2012 [facility] [address] [id number] [address] [place] [address] 05 Aug, 2012 [facility] [address] [id number] [address] [place] [address], [place] [address] 05 Aug, 2012 [facility] [address] [id number] [address] [place] [address], [place] [address] 20 Aug, 2012 [facility] [address] [id number] [address] [place] [address], [place] [address] 14 Aug, 2012 [facility] [address] [id number] [address] [place] [address], [place] [address] 12 Aug, 2012 [facility] [address] [id number] [address] [place] [address], [place] [address] 11 Aug, 2012 [facility] [address] [id number] [address] [place] [address], [place] [address] 29 Jul, 2012 [facility] [address] [id number] [address] [place] [address], [place] [address] 15 Jul, 2012 [facility] [address] [id number] [address] [place] [address], [place] [address] 08 Jul, 2012 [facility] [address] [id number] [address] [place] [address], [place] [address] 20 Jun, 2012 [facility] [address] [id number] [address] [place] [address], [place] [address] 18 Jun, 2012 [facility] [address] [id number] [address] [place] [address], [place] [address] 18 Jun, 2012 [facility] [address] [id number] [address] [place] [address], [place] [address] 18 Jun, 2012 [facility] [address] [id number] [address] [place] [address], [place] [address] 18 Jun, 2012 [facility] [address] [id number] [address] [place] [address], [place] [address] 14 Jun, 2012 [facility] [address] [id number] [address] [place] [address], [place] [address] 14 Jun, 2012 [facility] [address] [id number] [address] [place] [address], [place] [address] 13 Jun, 2012 [facility] [address] [id number] [address] [place] [address], [place] [address] 13 Jun, 2012 [facility] [address] [id number] [address] [place] [address], [place] [address] 11 Jun, 2012 [facility] [address] [id number] [address] [place] [address], [place] [address] Jun, [facility] [address] [id number] [address] [place] [address], [place] [address] 11 Jun, 2012 [facility] [address] [id number] [address] [place] [address], [place] [address] Jun, [facility] [address] [id number] [address] [place] [address], [place] [address] Jun, [facility] [address] [id number] [address] [place] [address], [place] [address] Jun, [facility] [address] [id number] [address] [place] [address], [place] [address] Jun, [facility] [address] [id number] [address] [place] [address], [place] [address] Jun, [facility] [address] [id number] [address] [place] [address], [place] [address] Jun, [facility] [address] [id number] [address] [place] [address], [place] [address] Jun, [facility] [address] [id number] [address] [place] [address], [place] [address] Jun, [facility] [address] [id number] [address] [place] [address], [place] [address] Jun, [facility] [address] [id number] [address] [place] [address], [place] [address] 04 Jun, 2012 [facility] [address] [id number] [address] [place] [address] Jun, [facility] [address] [id number] [address] [place] [address], [place] [address] May, [facility] [address] [id number] [address] [place] [address], [place] [address] May, [facility] [address] [id number] [address] [place] [address], [place] [address] May, [facility] [address] [id number] [address] [place] [address] May, [facility] [address] [id number] [address] [place] [address], [place] [address] May, [facility] [address] [id number] [address] [place] [address], [place] [address] May, [facility] [address] [id number] [address] [place] [address], [place] [address] May, [facility] [address] [id number] [address] [place] [address], [place] [address] May, [facility] [address] [id number] [address] [place] [address], [place] [address] Apr, [facility] [address] [id number] [address] [place] [address] Apr, [facility] [address] [id number] [address] [place] [address] Apr, [facility] [address] [id number] [address] [place] [address] Apr, [facility] [address] [id number] [address] [place] [address], [place] [address] Apr, [facility] [address] [id number] [address] [place] [address] Apr, [facility] [address] [id number] [address] [place] [address] Apr, [facility] [address] [id number] [address] [place] [address], [place] [address] Apr, [facility] [address] [id number] [address] [place] [address], [place] [address] Apr, [facility] [address] [id number] [address] [place] [address], [place] [address] Apr, [facility] [address] [id number] [address] [place] [address], [place] [address] Apr, [facility] [address] [id number] [address] [place] [address], [place] [address] Apr, [facility] [address] [id number] [address] [place] [address], [place] [address] Mar, [facility] [address] [id number] [address] [place] [address], [place] [address] 18 Mar, 2012 [facility] [address] [id number] [address] [place] [address], [place] [address] Mar, [facility] [address] [id number] [address] [place] [address], [place] [address] Mar, [facility] [address] [id number] [address] [place] [id number] Mar, [facility] [address] [id number] [address] [place] [id number] Mar, [facility] [address] [id number] [address] [place] [id number] Mar, [facility] [address] [id number] [address] [place] [id number] Jan, [facility] [address] [id number] [address] [place] [id number] Jan, [facility] [address] [id number] [address] [place] [id number] Jan, [facility] [address] [id number] [address] [place] [id number] Jan, [facility] [address] [id number] [address] [place] [address], [place] [address] Jan, [facility] [address] [id number] [address] [place] [address], [place] [address] Jan, [facility] [address] [id number] [address] [place] [address], [place] [address] Jan, [facility] [address] [id number] [address] [place] [address], [place] [address] Jan, [facility] [address] [id number] [address] [place] [address], [place] [address] Jan, [facility] [address] [id number] [address] [place] [address], [place] [address] Jan, [facility] [address] [id number] [address] [place] [address], [place] [address] Jan, [facility] [address] [id number] [address] [place] [address], [place] [address] Dec, [facility] [address] [id number] [address] [place] [address], [place] [address] Dec, [facility] [address] [id number] [address] [place] [address], [place] [address] Dec, [facility] [address] [id number] [address] [place] [address], [place] [address] Dec, [facility] [address] [id number] [address] [place] [address], [place] [address] Dec, [facility] [address] [id number] [address] [place] [address], [place] [address] Dec, [facility] [address] [id number] [address] [place] [address], [place] [address] Dec, [facility] [address] [id number] [address] [place] [address], [place] [address] Dec, [facility] [address] [id number] [address] [place] [address], [place] [address] 16 Jan, 2012 [facility] [address] [id number] [facility] [place] [address] Dec, [facility] [address] [id number] [address] [place] [address], [place] [address] 13 Jan, 2012 [facility] [address] [id number] [address] [place] [address], [place] [address] Dec, [facility] [address] [id number] [address] [place] [address], [place] [address] Dec, [facility] [address] [id number] [address] [place] [address], [place] [address] Dec, [facility] [address] [id number] [address] [place] [address], [place] [address] Dec, [facility] [address] [id number] [address] [place] [address], [place] [address] Dec, [facility] [address] [id number] [address] [place] [address], [place] [address] 15 Dec, 2011 [facility] [address] [id number] [address] [place] [address], [place] [address] Dec, [facility] [address] [id number] [address] [place] [address], [place] [address] Dec, [facility] [address] [id number] [address] [place] [address], [place] [address] October, [facility] [address] [id number] [address] [place] [address], [place] [address] October, [facility] [address] [id number] [address] [place] [address], [place] [address] October, [facility] [address] [id number] [address] [place] [address], [place] [address] October, [facility] [address] [id number] [address] [place] [address], [place] [address] October, [facility] [address] [id number] [address] [place] [address], [place] [address] October, [facility] [address] [id number] [address] [place] [address], [place] [address] 30 Oct, 2011 [facility] [address] [id number] [address] [place] [address], [place] [address] 24 Oct, 2011 [facility] [address] [id number] [address] [place] [address], [place] [address] Oct, [facility] [address] [id number] [address] [place] [address], [place] [address] Oct, [facility] [address] [id number] [address] [place] [address], [place] [address] Oct, [facility] [address] [id number] [address] [place] [address], [place] [address] Oct, [facility] [address] [id number] [address] [place] [address], [place] [address] Oct, [facility] [address] [id number] [address] [place] [address], [place] [address] Aug, [facility] [address] [id number] [address] [place] [address], [place] [address] 29 Sep, 2011 [facility] [address] [id number] [address] [place] [address], [place] [address] Aug, [facility] [address] [id number] [address] [place] [address], [place] [address] Aug, [facility] [address] [id number] [address] [place] [address], [place] [address] 05 Sep, 2011 [facility] [address] [id number] [address] [place] [address], [place] [address] 05 Sep, 2011 [facility] [address] [id number] [address] [place] [address], [place] [address] 27 Aug, 2011 [facility] [address] [id number] [address] [place] [address], [place] [address] Aug, [facility] [address] [id number] [address] [place] [address], [place] [address] Aug, [facility] [address] [id number] [address] [place] [address], [place] [address] Jul, [facility] [address] [id number] [address] [place] [address], [place] [address] Jul, [facility] [address] [id number] [address] [place] [address], [place] [address] Jul, [facility] [address] [id number] [address] [place] [address], [place] [address] Jul, [facility] [address] [id number] [address] [place] [address], [place] [address] Jun, [facility] [address] [id number] [address] [place] [address], [place] [address] Jun, [facility] [address] [id number] [address] [place] [address], [place] [address] May, [facility] [address] [id number] [address] [place] [address], [place] [address] May, [facility] [address] [id number] [address] [place] [address], [place] [address] May, [facility] [address] [id number] [address] [place] [address], [place] [address] May, [facility] [address] [id number] [address] [place] [id number] May, [facility] [address] [id number] [address] [place] [address], [place] [address] Apr, [facility] [address] [id number] [address] [place] [address], [place] [address] Apr, [facility] [address] [id number] [address] [place] [address], [place] [address] 10 Apr, 2011 [facility] [address] [id number] [address] [place] [id number] Jan, [facility] [address] [id number] [address] [place] [id number] Dec, [facility] [address] [id number] [address] [place] [id number] October, [facility] [address] [id number] [address] [place] [id number] Jun, [facility] [address] [id number] [address] [place] [id number] Apr, [facility] [address] [id number] [address] [place] [id number] Apr, [facility] [address] [id number] [address] [place] [id number] Apr, [facility] [address] [id number] [address] [place] [phone] Jun, IMMUNIZATIONS No Known Immunizations SOCIAL HISTORY Never Assessed REASON FOR VISIT f/u, ligia PLAN OF CARE Activity Details Follow Up 3 Months Reason: f/u VITAL SIGNS MEDICATIONS Medication Instructions Dosage Frequency Start Date End Date Duration S tatus HydrOXYzine HCl 50 mg Orally 3 times a day 1 tablet as needed 8h 30 days Active Seroquel 400 MG TAKE TWO TABLETS BY MOUTH ONCE DAILY AT BEDTIME Active Valium 5 mg Orally Twice a day 1 tablet as needed 12h Active Gabapentin 800 MG Orally 4 times a day 1 tablet 6h 30 Active Prazosin HCl 5 MG TAKE ONE CAPSULE BY MOUTH ONCE DAILY AT BEDTIM E Active Plus Iron 29-1 MG Orally Once a day 1 tablet 24h 24 Ap r, 2017 90 days Active Adderall 10 mg Orally 3 times a day 1 tablet 8h 10 Jul, 2017 Active RESULTS Name Result Date Reference Range [employer] 2017-07-27 PROCEDURES Procedure Date Ordered Result Body Site [facility] VISIT ESTABLISHED PATIENT Jul 27, 2017 No Charge Jul 27, 2017 INSTRUCTIONS MEDICATIONS ADMINISTERED No Known Medications MEDICAL (GENERAL) HISTORY Type Description Date Medical History Psychiatric disorder Medical History Hard of hearing Surgical History Neofibrous tumor Surgical History back injection Hospitalization History Intestinal blockage Hospitalization History past psychiatric hospitalizations x2
--- OUTSIDE RECORDS SUMMARY | 2020-01-25 13:38 | XMS REPORT ---
Author Author Ana HALE Organization [facility] Address [address] [place] [address] Care Team Providers Care Pressfitter Name Role Phone JAJA HALE Unavailable PROBLEMS Type Condition ICD9-CM Code [id number] Code Onset Dates Condition S tatus SNOMED Code Problem Attention deficit R41.840 Active 76 359144 Problem Cannabis abuse F12.10 Active 50539 009 Problem Chronic hepatitis C without hepatic coma B18.2 Active 463315266 Problem Attention deficit hyperactivity disorder (ADHD), combi luciano type F90.2 Active 44593928 Problem Bipolar disorder, in partial remission, most rec ent episode hypomanic F31.71 Active 306061751 Problem H/O laminectomy Z98.89 Active 1616 90965 Problem Bipolar 1 disorder F31.9 Active 3 64813924 Problem Anxiety disorder, unspecified type F41.9 Active 565558557 Problem Other chronic pain G89.29 Active 8 [id number] ALLERGIES No Information ENCOUNTERS Encounter Location Date Diagnosis [facility] [address] [facility] [id number] [address] [place] [phone] Dec, [facility] [address] [facility] [id number] [address] [place] [phone] October, [facility] [address] [facility] [id number] [address] [place] [id number] Oct, Bipolar disorder, in partial remission, most recent episode hypomanic F31.71 ; Attention deficit hyperactivity disorder (ADHD), combined type F90.2 ; Anxiety disorder, unspecified type F41.9 and Encounter for drug screening Z02.83 [facility] [address] [facility] [id number] [address] [place] [phone] Oct, Bipolar disorder, in partial remission, most recent episode hypomanic F31.71 [facility] [address] [id number] [address] [place] [phone] Oct, Bipolar disorder, in partial remission, most recent episode hypomanic F31.71 [facility] [address] [id number] [address] [place] [phone] Aug, Bipolar disorder, in partial remission, most recent episode hypomanic F31.71 [facility] [address] [id number] [address] [place] [phone] Aug, Bipolar disorder, in partial remission, most recent episode hypomanic F31.71 [facility] [address] [id number] [address] [place] [phone] Aug, Bipolar disorder, in partial remission, most recent episode hypomanic F31.71 [facility] [address] [facility] [id number] [address] [place] [phone] Jul, Bipolar disorder, in partial remission, most recent episode hypomanic F31.71 ; Attention deficit hyperactivity disorder (ADHD), combined type F90.2 and Anxiety disorder, unspecified type F41.9 [facility] [address] [facility] [id number] [address] [place] [phone] Jul, Bipolar disorder, in partial remission, most recent episode hypomanic F31.71 [facility] [address] [facility] [id number] [address] [place] [phone] Jun, Bipolar disorder, in partial remission, most recent episode hypomanic F31.71 [facility] [address] [facility] [id number] [address] [place] [phone] May, Bipolar disorder, in partial remission, most recent episode hypomanic F31.71 [facility] [address] [id number] [address] [place] [phone] May, Bipolar disorder, in partial remission, most recent episode hypomanic F31.71 [facility] [address] [id number] [address] [place] [phone] Apr, [facility] [address] [facility] [id number] [address] [place] [phone] Apr, Bipolar disorder, in partial remission, most recent episode hypomanic F31.71 ; Attention deficit hyperactivity disorder (ADHD), combined type F90.2 ; Anxiety disorder, unspecified type F41.9 and Cannabis abuse F12.10 [facility] [address] [facility] [id number] [address] [place] [id number] Apr, Attention deficit hyperactiv ity disorder (ADHD), combined type F90.2 [facility] [address] [facility] [id number] [address] [place] [id number] Mar, Attention deficit hyperactiv ity disorder (ADHD), combined type F90.2 [facility] [address] [facility] [id number] [address] [place] [phone] Mar, Anxiety disorder, unspecifie d type F41.9 [facility] [address] [facility] [id number] [address] [place] [id number] Jan, Attention deficit hyperactiv ity disorder (ADHD), combined type F90.2 [facility] [address] [facility] [id number] [address] [place] [phone] Jan, Anxiety disorder, unspecifie d type F41.9 [facility] [address] [facility] [id number] [address] [place] [phone] Jan, Other chronic pain G89.29 ; Chronic hepatitis C without hepatic coma B18.2 and Bipolar 1 disorder F31.9 [facility] [address] [facility] [id number] [address] [place] [phone] Dec, Attention deficit hyperactiv ity disorder (ADHD), combined type F90.2 [facility] [address] [facility] [id number] [address] [place] [phone] Dec, Bipolar disorder, in partial remission, most recent episode hypomanic F31.71 ; Attention deficit hyperactivity disorder (ADHD), combined type F90.2 and Anxiety disorder, unspecified type F41.9 [facility] [address] [facility] [id number] [address] [place] [phone] Dec, Bipolar disorder, in partial remission, most recent episode hypomanic F31.71 ; Attention deficit hyperactivity disorder (ADHD), combined type F90.2 and Anxiety disorder, unspecified type F41.9 [facility] [address] [facility] [id number] [address] [place] [address] Dec, Bipolar 1 disorder F31.9 and Attention deficit R41.840 [facility] [address] [facility] [id number] [address] [place] [phone] Oct, Other chronic pain G89.29 ; Alopecia L65.9 and Screening, lipid Z13.220 [facility] [address] [place] [id number] [address] [place] [phone] Oct, [facility] [address] [place] [id number] [address] [place] [phone] Aug, [facility] [address] [place] [id number] [address] [place] [phone] Aug, Eustachian tube dysfunction, right H69.81 ; Vertigo R42 and Other chronic pain G89.29 [facility] [address] [id number] [address] [place] [phone] Aug, [facility] [address] [id number] [address] [place] [phone] Jun, [facility] [address] [facility] [id number] [address] [place] [phone] Jun, Low back pain M54.5 and Othe r chronic pain G89.29 [facility] [address] [id number] [address] [place] [phone] Jun, [facility] [address] [facility] [id number] [address] [place] [phone] May, [facility] [address] [place] [id number] [address] [place] [phone] Jan, [facility] [address] [id number] [address] [place] [phone] Dec, [facility] [address] [facility] [id number] [address] [place] [phone] Dec, [facility] [address] [facility] [id number] [address] [place] [phone] Jun, [facility] [address] [facility] [id number] [address] [place] [phone] Apr, Eustachian tube dysfunction, unspecified laterality H69.80 ; Hot flashes N95.1 and Encounter for immunization Z23 [facility] [address] [facility] [id number] [address] [place] [phone] Jan, [facility] [address] [facility] [id number] [address] [place] [phone] Jan, [facility] [address] [facility] [id number] [address] [place] [phone] Jan, [facility] [address] [facility] [id number] [address] [place] [phone] Jan, [facility] [address] [facility] [id number] [address] [place] [phone] Jan, Encounter to establish care V65.8 ; Bipolar 1 disorder 296.7 ; Abdominal pain 789.00 ; Constipation 564.00 ; Hard of hearing 389.9 and Drug abuse 305.90 [facility] [address] [facility] [id number] [address] [place] [id number] Dec, [facility] [address] [id number] [address] [place] [phone] October, [facility] [address] [facility] [id number] [address] [place] [phone] October, [facility] [address] [facility] [id number] [address] [place] [phone] Oct, [facility] [address] [facility] [id number] [address] [place] [phone] Oct, [facility] [address] [id number] [address] [place] [address], [place] [phone] Oct, [facility] [address] [id number] [address] [place] [address], [place] [phone] Aug, [facility] [address] [id number] [address] [place] [address], [place] [phone] Aug, [facility] [address] [id number] [address] [place] [address], [place] [phone] Aug, [facility] [address] [id number] [address] [place] [address], [place] [id number] Aug, 2014 [facility] [address] [id number] [address] [place] [address], [place] [phone] Aug, 2014 [facility] [address] [id number] [address] [place] [address], [place] [id number] Aug, 2014 [facility] [address] [id number] [address] [place] [address], [place] [id number] Aug, 2014 [facility] [address] [id number] [address] [place] [address], [place] [id number] Aug, 2014 [facility] [address] [id number] [address] [place] [address], [place] [id number] Aug, 2014 [facility] [address] [id number] [address] [place] [address], [place] [phone] Aug, 2014 [facility] [address] [id number] [address] [place] [phone] Aug, 2014 [facility] [address] [id number] [address] [place] [address], [place] [id number] Aug, 2014 [facility] [address] [id number] [address] [place] [address], [place] [phone] Aug, 2014 [facility] [address] [id number] [address] [place] [address], [place] [id number] Aug, 2014 [facility] [address] [id number] [address] [place] [address], [place] [id number] Aug, [facility] [address] [id number] [address] [place] [address], [place] [id number] Jul, [facility] [address] [id number] [address] [place] [address], [place] [id number] Jul, [facility] [address] [id number] [address] [place] [address], [place] [id number] Jul, [facility] [address] [id number] [address] [place] [address], [place] [id number] Jul, [facility] [address] [id number] [address] [place] [address], [place] [id number] Jul, [facility] [address] [id number] [address] [place] [address], [place] [id number] Jul, [facility] [address] [id number] [address] [place] [address], [place] [phone] Jul, [facility] [address] [id number] [address] [place] [address], [place] [id number] Jul, [facility] [address] [id number] [address] [place] [address], [place] [phone] Jun, [facility] [address] [id number] [address] [place] [address], [place] [id number] Jun, [facility] [address] [id number] [address] [place] [address], [place] [id number] Jun, [facility] [address] [id number] [address] [place] [address], [place] [phone] 29 Jun, 2014 [facility] [address] [id number] [address] [place] [address], [place] [phone] 18 Jun, 2014 [facility] [address] [id number] [address] [place] [address], [place] [id number] 15 Jun, 2014 [facility] [address] [id number] [address] [place] [address], [place] [id number] 15 Jun, 2014 [facility] [address] [id number] [address] [place] [address], [place] [id number] Jun, [facility] [address] [id number] [address] [place] [address], [place] [address] Jun, [facility] [address] [id number] [address] [place] [address], [place] [phone] Jun, [facility] [address] [id number] [address] [place] [address], [place] [id number] Jun, [facility] [address] [id number] [address] [place] [address], [place] [phone] May, [facility] [address] [id number] [address] [place] [address], [place] [id number] May, [facility] [address] [id number] [address] [place] [address], [place] [address] May, [facility] [address] [id number] [address] [place] [address], [place] [phone] May, [facility] [address] [id number] [address] [place] [address], [place] [id number] May, [facility] [address] [id number] [address] [place] [address], [place] [address] May, [facility] [address] [id number] [address] [place] [address], [place] [id number] May, [facility] [address] [id number] [address] [place] [address], [place] [id number] Apr, [facility] [address] [id number] [address] [place] [address], [place] [address] Apr, [facility] [address] [id number] [address] [place] [address], [place] [address] Apr, [facility] [address] [id number] [address] [place] [address], [place] [id number] Apr, [facility] [address] [id number] [address] [place] [address], [place] [id number] Apr, [facility] [address] [id number] [address] [place] [address], [place] [phone] Apr, [facility] [address] [id number] [address] [place] [address], [place] [id number] Mar, [facility] [address] [id number] [address] [place] [address], [place] [address] Mar, [facility] [address] [id number] [address] [place] [address], [place] [address] Mar, [facility] [address] [id number] [address] [place] [address], [place] [id number] Mar, [facility] [address] [id number] [address] [place] [address], [place] [id number] Mar, [facility] [address] [id number] [address] [place] [address], [place] [id number] Mar, [facility] [address] [id number] [address] [place] [address], [place] [id number] Jan, [facility] [address] [id number] [address] [place] [address], [place] [phone] Jan, [facility] [address] [id number] [address] [place] [address], [place] [address] Jan, [facility] [address] [id number] [address] [place] [address], [place] [id number] Jan, [facility] [address] [id number] [address] [place] [address], [place] [id number] Dec, [facility] [address] [id number] [address] [place] [address], [place] [id number] Dec, [facility] [address] [id number] [address] [place] [address], [place] [id number] Dec, [facility] [address] [id number] [address] [place] [address], [place] [id number] Dec, [facility] [address] [id number] [facility] [place] [id number] Dec, [facility] [address] [id number] [address] [place] [address], [place] [id number] Dec, [facility] [address] [id number] [address] [place] [address], [place] [id number] Dec, [facility] [address] [id number] [address] [place] [address], [place] [phone] Dec, [facility] [address] [id number] [address] [place] [address], [place] [id number] Dec, [facility] [address] [id number] [address] [place] [address], [place] [id number] Dec, [facility] [address] [id number] [address] [place] [address], [place] [id number] Dec, [facility] [address] [id number] [address] [place] [address], [place] [id number] Dec, [facility] [address] [id number] [address] [place] [address], [place] [id number] October, [facility] [address] [id number] [address] [place] [address], [place] [id number] October, [facility] [address] [id number] [address] [place] [address], [place] [id number] October, [facility] [address] [id number] [address] [place] [address], [place] [id number] October, [facility] [address] [id number] [address] [place] [address], [place] [id number] October, [facility] [address] [id number] [address] [place] [address], [place] [id number] October, [facility] [address] [id number] [address] [place] [address], [place] [phone] Oct, [facility] [address] [id number] [address] [place] [address], [place] [phone] Oct, [facility] [address] [id number] [facility] [place] [address] Oct, [facility] [address] [id number] [facility] [place] [id number] Oct, [facility] [address] [id number] [address] [place] [address], [place] [id number] Oct, [facility] [address] [id number] [address] [place] [address], [place] [phone] Oct, [facility] [address] [id number] [address] [place] [address], [place] [id number] Oct, [facility] [address] [id number] [address] [place] [address], [place] [phone] Oct, [facility] [address] [id number] [address] [place] [address], [place] [phone] Oct, [facility] [address] [id number] [address] [place] [address], [place] [id number] Oct, [facility] [address] [id number] [address] [place] [address], [place] [id number] Oct, [facility] [address] [id number] [address] [place] [address], [place] [id number] Oct, [facility] [address] [id number] [address] [place] [address], [place] [id number] Aug, [facility] [address] [id number] [address] [place] [address], [place] [id number] 15 Aug, 2013 [facility] [address] [id number] [address] [place] [address], [place] [id number] Aug, [facility] [address] [id number] [address] [place] [address], [place] [id number] Aug, [facility] [address] [id number] [address] [place] [address], [place] [id number] 05 Aug, 2013 [facility] [address] [id number] [address] [place] [address], [place] [id number] 05 Aug, 2013 [facility] [address] [id number] [address] [place] [address], [place] [id number] 04 Aug, 2013 [facility] [address] [id number] [address] [place] [address], [place] [id number] Aug, [facility] [address] [id number] [address] [place] [address], [place] [id number] Aug, [facility] [address] [id number] [address] [place] [address], [place] [id number] 24 Aug, 2013 [facility] [address] [id number] [address] [place] [address], [place] [id number] 24 Aug, 2013 [facility] [address] [id number] [address] [place] [address], [place] [id number] Aug, [facility] [address] [id number] [address] [place] [address], [place] [id number] 21 Aug, 2013 [facility] [address] [id number] [address] [place] [address], [place] [id number] 20 Aug, 2013 [facility] [address] [id number] [address] [place] [address], [place] [id number] 14 Aug, 2013 [facility] [address] [id number] [address] [place] [address], [place] [id number] 14 Aug, 2013 [facility] [address] [id number] [address] [place] [address], [place] [id number] 14 Aug, 2013 [facility] [address] [id number] [address] [place] [address], [place] [id number] 14 Aug, 2013 [facility] [address] [id number] [address] [place] [address], [place] [id number] 07 Aug, 2013 [facility] [address] [id number] [address] [place] [address], [place] [id number] 07 Aug, 2013 [facility] [address] [id number] [address] [place] [address], [place] [id number] Aug, [facility] [address] [id number] [address] [place] [address], [place] [id number] Aug, [facility] [address] [id number] [address] [place] [address], [place] [id number] Aug, [facility] [address] [id number] [address] [place] [address], [place] [id number] Aug, [facility] [address] [id number] [address] [place] [address], [place] [id number] Aug, [facility] [address] [id number] [address] [place] [address], [place] [id number] Jul, [facility] [address] [id number] [address] [place] [address], [place] [id number] Jul, [facility] [address] [id number] [address] [place] [address], [place] [address] Jul, [facility] [address] [id number] [address] [place] [address], [place] [id number] Jul, [facility] [address] [id number] [address] [place] [address], [place] [id number] Jul, [facility] [address] [id number] [address] [place] [address], [place] [id number] Jul, [facility] [address] [id number] [address] [place] [address], [place] [id number] Jul, [facility] [address] [id number] [address] [place] [address], [place] [id number] Jul, [facility] [address] [id number] [address] [place] [address], [place] [id number] Jul, [facility] [address] [id number] [address] [place] [address], [place] [id number] Jul, [facility] [address] [id number] [address] [place] [address], [place] [id number] Jul, [facility] [address] [id number] [address] [place] [address], [place] [phone] 15 Jul, 2013 [facility] [address] [id number] [address] [place] [address], [place] [phone] Jul, [facility] [address] [id number] [address] [place] [address], [place] [id number] Jul, [facility] [address] [id number] [address] [place] [address], [place] [id number] Jul, [facility] [address] [id number] [address] [place] [address], [place] [id number] Jul, [facility] [address] [id number] [address] [place] [address], [place] [id number] Jul, [facility] [address] [id number] [address] [place] [address], [place] [id number] Jul, [facility] [address] [id number] [address] [place] [address], [place] [phone] Jul, [facility] [address] [id number] [address] [place] [address], [place] [id number] Jul, [facility] [address] [id number] [address] [place] [address], [place] [phone] Jun, [facility] [address] [id number] [address] [place] [address], [place] [phone] Jun, [facility] [address] [id number] [address] [place] [address], [place] [id number] 30 Jun, 2013 [facility] [address] [id number] [address] [place] [address], [place] [id number] 30 Jun, 2013 [facility] [address] [id number] [address] [place] [address], [place] [id number] Jun, [facility] [address] [id number] [address] [place] [address], [place] [phone] Jun, [facility] [address] [id number] [address] [place] [address], [place] [id number] Jun, [facility] [address] [id number] [address] [place] [address], [place] [id number] Jun, [facility] [address] [id number] [address] [place] [address], [place] [phone] Jun, [facility] [address] [id number] [address] [place] [address], [place] [phone] Jun, [facility] [address] [id number] [address] [place] [address], [place] [id number] Jun, [facility] [address] [id number] [address] [place] [address], [place] [id number] Jun, [facility] [address] [id number] [address] [place] [address], [place] [phone] Jun, [facility] [address] [id number] [address] [place] [address], [place] [id number] Jun, [facility] [address] [id number] [address] [place] [address], [place] [id number] Jun, [facility] [address] [id number] [address] [place] [address], [place] [id number] Jun, [facility] [address] [id number] [address] [place] [address], [place] [phone] Jun, [facility] [address] [id number] [address] [place] [address], [place] [id number] 17 Jun, 2013 [facility] [address] [id number] [address] [place] [address], [place] [id number] 17 Jun, 2013 [facility] [address] [id number] [address] [place] [address], [place] [phone] 13 Jun, 2013 [facility] [address] [id number] [address] [place] [address], [place] [id number] 12 Jun, 2013 [facility] [address] [id number] [address] [place] [address], [place] [id number] Jun, [facility] [address] [id number] [address] [place] [phone] Jun, [facility] [address] [id number] [address] [place] [address], [place] [phone] Jun, [facility] [address] [id number] [address] [place] [phone] Jun, [facility] [address] [id number] [address] [place] [address], [place] [id number] Jun, [facility] [address] [id number] [address] [place] [phone] Jun, [facility] [address] [id number] [address] [place] [address], [place] [phone] May, [facility] [address] [id number] [address] [place] [id number] May, [facility] [address] [id number] [address] [place] [phone] May, [facility] [address] [id number] [address] [place] [phone] May, [facility] [address] [id number] [address] [place] [phone] May, [facility] [address] [id number] [address] [place] [phone] May, [facility] [address] [id number] [address] [place] [phone] Apr, [facility] [address] [id number] [address] [place] [phone] Apr, [facility] [address] [id number] [address] [place] [phone] Apr, [facility] [address] [id number] [address] [place] [phone] Apr, [facility] [address] [id number] [address] [place] [phone] Apr, [facility] [address] [id number] [address] [place] [address], [place] [phone] 15 Apr, 2013 [facility] [address] [id number] [address] [place] [address], [place] [id number] 15 Apr, 2013 [facility] [address] [id number] [address] [place] [address], [place] [id number] 01 Apr, 2013 [facility] [address] [id number] [address] [place] [address], [place] [id number] 26 Mar, 2012 [facility] [address] [id number] [address] [place] [address], [place] [id number] 24 Mar, 2012 [facility] [address] [id number] [address] [place] [address], [place] [id number] 17 Mar, 2012 [facility] [address] [id number] [address] [place] [address], [place] [id number] 17 Mar, 2012 [facility] [address] [id number] [address] [place] [address], [place] [id number] 11 Mar, 2013 [facility] [address] [id number] [address] [place] [address], [place] [id number] 10 Mar, 2013 [facility] [address] [id number] [address] [place] [address], [place] [id number] 05 Mar, 2013 [facility] [address] [id number] [address] [place] [address], [place] [id number] 04 Mar, 2013 [facility] [address] [id number] [address] [place] [address], [place] [id number] 20 Jan, 2013 [facility] [address] [id number] [address] [place] [address], [place] [id number] 19 Jan, 2013 [facility] [address] [id number] [address] [place] [address], [place] [id number] 14 Jan, 2013 [facility] [address] [id number] [address] [place] [address], [place] [phone] 12 Jan, 2013 [facility] [address] [id number] [address] [place] [address], [place] [id number] Jan, [facility] [address] [id number] [address] [place] [address], [place] [id number] Jan, [facility] [address] [id number] [address] [place] [address], [place] [id number] Dec, [facility] [address] [id number] [address] [place] [address], [place] [id number] 24 Dec, 2012 [facility] [address] [id number] [address] [place] [address], [place] [id number] Dec, [facility] [address] [id number] [address] [place] [address], [place] [address] Dec, [facility] [address] [id number] [address] [place] [address], [place] [id number] Dec, [facility] [address] [id number] [address] [place] [address], [place] [id number] Dec, [facility] [address] [id number] [address] [place] [address], [place] [id number] Dec, [facility] [address] [id number] [address] [place] [address], [place] [id number] Dec, [facility] [address] [id number] [address] [place] [address], [place] [id number] 15 Dec, 2012 [facility] [address] [id number] [address] [place] [address], [place] [id number] Dec, [facility] [address] [id number] [address] [place] [address], [place] [id number] Dec, [facility] [address] [id number] [address] [place] [address], [place] [id number] Dec, [facility] [address] [id number] [address] [place] [address], [place] [id number] Dec, [facility] [address] [id number] [address] [place] [address], [place] [id number] Dec, [facility] [address] [id number] [address] [place] [address], [place] [id number] 13 Dec, 2012 [facility] [address] [id number] [address] [place] [address], [place] [address] Dec, [facility] [address] [id number] [address] [place] [address], [place] [id number] October, [facility] [address] [id number] [address] [place] [address], [place] [id number] October, [facility] [address] [id number] [address] [place] [address], [place] [phone] October, [facility] [address] [id number] [address] [place] [address], [place] [id number] October, [facility] [address] [id number] [address] [place] [address], [place] [id number] October, [facility] [address] [id number] [address] [place] [address], [place] [id number] October, [facility] [address] [id number] [address] [place] [address], [place] [id number] October, [facility] [address] [id number] [address] [place] [address], [place] [phone] Oct, [facility] [address] [id number] [address] [place] [address], [place] [id number] Oct, [facility] [address] [id number] [address] [place] [address], [place] [id number] 24 Oct, 2012 [facility] [address] [id number] [address] [place] [address], [place] [id number] Oct, [facility] [address] [id number] [address] [place] [address], [place] [id number] Oct, [facility] [address] [id number] [address] [place] [address], [place] [id number] 18 Oct, 2012 [facility] [address] [id number] [address] [place] [address], [place] [phone] Oct, [facility] [address] [id number] [address] [place] [address], [place] [id number] 15 Oct, 2012 [facility] [address] [id number] [address] [place] [address], [place] [id number] Oct, [facility] [address] [id number] [address] [place] [address], [place] [id number] Oct, [facility] [address] [id number] [address] [place] [address], [place] [id number] Oct, [facility] [address] [id number] [address] [place] [address], [place] [id number] Oct, [facility] [address] [id number] [address] [place] [address], [place] [phone] Aug, [facility] [address] [id number] [address] [place] [address], [place] [address] Aug, [facility] [address] [id number] [address] [place] [address], [place] [id number] Aug, [facility] [address] [id number] [address] [place] [address], [place] [id number] Aug, [facility] [address] [id number] [address] [place] [address], [place] [id number] Aug, [facility] [address] [id number] [address] [place] [address], [place] [id number] Aug, [facility] [address] [id number] [address] [place] [address], [place] [id number] Aug, [facility] [address] [id number] [address] [place] [address], [place] [id number] 14 Aug, 2012 [facility] [address] [id number] [address] [place] [address], [place] [id number] 12 Aug, 2012 [facility] [address] [id number] [address] [place] [address], [place] [phone] Aug, [facility] [address] [id number] [address] [place] [address], [place] [id number] 29 Jul, 2012 [facility] [address] [id number] [address] [place] [address], [place] [id number] 15 Jul, 2012 [facility] [address] [id number] [address] [place] [address], [place] [id number] 08 Jul, 2012 [facility] [address] [id number] [address] [place] [address], [place] [id number] 20 Jun, 2012 [facility] [address] [id number] [address] [place] [address], [place] [id number] 18 Jun, 2012 [facility] [address] [id number] [address] [place] [address], [place] [id number] 18 Jun, 2012 [facility] [address] [id number] [address] [place] [address], [place] [id number] 18 Jun, 2012 [facility] [address] [id number] [address] [place] [address], [place] [id number] 18 Jun, 2012 [facility] [address] [id number] [address] [place] [address], [place] [id number] 14 Jun, 2012 [facility] [address] [id number] [address] [place] [address], [place] [id number] 14 Jun, 2012 [facility] [address] [id number] [address] [place] [address], [place] [id number] 13 Jun, 2012 [facility] [address] [id number] [address] [place] [address], [place] [id number] 13 Jun, 2012 [facility] [address] [id number] [address] [place] [address], [place] [id number] 11 Jun, 2012 [facility] [address] [id number] [address] [place] [address], [place] [phone] 11 Jun, 2012 [facility] [address] [id number] [address] [place] [address], [place] [id number] 11 Jun, 2012 [facility] [address] [id number] [address] [place] [address], [place] [phone] 11 Jun, 2012 [facility] [address] [id number] [address] [place] [address], [place] [id number] 07 Jun, 2012 [facility] [address] [id number] [address] [place] [address], [place] [phone] Jun, [facility] [address] [id number] [address] [place] [address], [place] [id number] Jun, [facility] [address] [id number] [address] [place] [address], [place] [id number] Jun, [facility] [address] [id number] [address] [place] [address], [place] [id number] Jun, [facility] [address] [id number] [address] [place] [address], [place] [id number] Jun, [facility] [address] [id number] [address] [place] [address], [place] [id number] Jun, [facility] [address] [id number] [address] [place] [address], [place] [id number] Jun, [facility] [address] [id number] [address] [place] [address], [place] [id number] Jun, [facility] [address] [id number] [address] [place] [address], [place] [id number] Jun, [facility] [address] [id number] [address] [place] [address], [place] [id number] May, [facility] [address] [id number] [address] [place] [address], [place] [id number] May, [facility] [address] [id number] [address] [place] [address], [place] [id number] May, [facility] [address] [id number] [address] [place] [address], [place] [id number] May, [facility] [address] [id number] [address] [place] [address], [place] [id number] May, [facility] [address] [id number] [address] [place] [address], [place] [id number] May, [facility] [address] [id number] [address] [place] [address], [place] [id number] May, [facility] [address] [id number] [address] [place] [address], [place] [id number] May, [facility] [address] [id number] [address] [place] [address], [place] [id number] Apr, [facility] [address] [id number] [address] [place] [address], [place] [id number] Apr, [facility] [address] [id number] [address] [place] [address], [place] [id number] Apr, [facility] [address] [id number] [address] [place] [address], [place] [id number] Apr, [facility] [address] [id number] [address] [place] [address], [place] [id number] Apr, [facility] [address] [id number] [address] [place] [id number] Apr, [facility] [address] [id number] [address] [place] [id number] Apr, [facility] [address] [id number] [address] [place] [id number] Apr, [facility] [address] [id number] [address] [place] [id number] Apr, [facility] [address] [id number] [address] [place] [id number] Apr, [facility] [address] [id number] [address] [place] [address], [place] [id number] Apr, [facility] [address] [id number] [address] [place] [id number] Apr, [facility] [address] [id number] [address] [place] [id number] Mar, [facility] [address] [id number] [address] [place] [address], [place] [id number] 18 Mar, 2012 [facility] [address] [id number] [address] [place] [address], [place] [id number] 12 Mar, 2012 [facility] [address] [id number] [address] [place] [address], [place] [id number] 12 Mar, 2012 [facility] [address] [id number] [address] [place] [address], [place] [id number] Mar, [facility] [address] [id number] [address] [place] [address], [place] [id number] Mar, [facility] [address] [id number] [address] [place] [address], [place] [id number] 04 Mar, 2012 [facility] [address] [id number] [address] [place] [address], [place] [id number] 29 Feb, 2012 [facility] [address] [id number] [address] [place] [address], [place] [id number] Jan, [facility] [address] [id number] [address] [place] [id number] Jan, [facility] [address] [id number] [address] [place] [id number] Jan, [facility] [address] [id number] [address] [place] [address], [place] [id number] Jan, [facility] [address] [id number] [address] [place] [address], [place] [id number] 16 Feb, 2012 [facility] [address] [id number] [address] [place] [address], [place] [id number] 16 Feb, 2012 [facility] [address] [id number] [address] [place] [address], [place] [id number] 14 Feb, 2012 [facility] [address] [id number] [address] [place] [address], [place] [id number] Jan, [facility] [address] [id number] [address] [place] [address], [place] [id number] 04 Feb, 2012 [facility] [address] [id number] [facility] [place] [id number] Jan, [facility] [address] [id number] [address] [place] [address], [place] [id number] Dec, [facility] [address] [id number] [address] [place] [address], [place] [id number] Dec, [facility] [address] [id number] [address] [place] [address], [place] [id number] Dec, [facility] [address] [id number] [address] [place] [address], [place] [id number] Dec, [facility] [address] [id number] [address] [place] [address], [place] [id number] Dec, [facility] [address] [id number] [address] [place] [address], [place] [id number] Dec, [facility] [address] [id number] [address] [place] [address], [place] [id number] Dec, [facility] [address] [id number] [address] [place] [address], [place] [id number] 17 Jan, 2012 [facility] [address] [id number] [address] [place] [address], [place] [id number] 16 Jan, 2012 [facility] [address] [id number] [address] [place] [address], [place] [id number] Dec, [facility] [address] [id number] [address] [place] [address], [place] [id number] Dec, [facility] [address] [id number] [address] [place] [address], [place] [phone] Dec, [facility] [address] [id number] [address] [place] [address], [place] [id number] Dec, [facility] [address] [id number] [address] [place] [address], [place] [id number] Dec, [facility] [address] [id number] [address] [place] [address], [place] [id number] Dec, [facility] [address] [id number] [address] [place] [address], [place] [id number] Dec, [facility] [address] [id number] [address] [place] [address], [place] [id number] Dec, [facility] [address] [id number] [address] [place] [address], [place] [id number] Dec, [facility] [address] [id number] [address] [place] [address], [place] [id number] Dec, [facility] [address] [id number] [address] [place] [address], [place] [id number] October, [facility] [address] [id number] [address] [place] [address], [place] [id number] October, [facility] [address] [id number] [address] [place] [address], [place] [phone] October, [facility] [address] [id number] [address] [place] [address], [place] [id number] October, [facility] [address] [id number] [address] [place] [address], [place] [id number] October, [facility] [address] [id number] [address] [place] [address], [place] [id number] October, [facility] [address] [id number] [address] [place] [address], [place] [id number] Oct, [facility] [address] [id number] [address] [place] [address], [place] [id number] Oct, [facility] [address] [id number] [address] [place] [address], [place] [id number] Oct, [facility] [address] [id number] [address] [place] [address], [place] [id number] Oct, [facility] [address] [id number] [address] [place] [address], [place] [phone] Oct, [facility] [address] [id number] [address] [place] [address], [place] [id number] 03 Oct, 2011 [facility] [address] [id number] [address] [place] [address], [place] [id number] Oct, [facility] [address] [id number] [address] [place] [address], [place] [id number] 29 Sep, 2011 [facility] [address] [id number] [address] [place] [address], [place] [id number] 29 Sep, 2011 [facility] [address] [id number] [address] [place] [address], [place] [id number] Aug, [facility] [address] [id number] [address] [place] [address], [place] [id number] 13 Sep, 2011 [facility] [address] [id number] [address] [place] [address], [place] [id number] 05 Sep, 2011 [facility] [address] [id number] [address] [place] [address], [place] [id number] 05 Sep, 2011 [facility] [address] [id number] [address] [place] [address], [place] [id number] 27 Aug, 2011 [facility] [address] [id number] [address] [place] [address], [place] [id number] Aug, [facility] [address] [id number] [address] [place] [address], [place] [id number] 08 Aug, 2011 [facility] [address] [id number] [address] [place] [address], [place] [id number] Jul, [facility] [address] [id number] [address] [place] [address], [place] [id number] Jul, [facility] [address] [id number] [address] [place] [address], [place] [id number] Jul, [facility] [address] [id number] [address] [place] [address], [place] [id number] Jul, [facility] [address] [id number] [address] [place] [address], [place] [id number] Jun, [facility] [address] [id number] [address] [place] [address], [place] [id number] Jun, [facility] [address] [id number] [address] [place] [address], [place] [id number] May, [facility] [address] [id number] [address] [place] [address], [place] [id number] May, [facility] [address] [id number] [address] [place] [address], [place] [id number] May, [facility] [address] [id number] [address] [place] [address], [place] [id number] May, [facility] [address] [id number] [address] [place] [address], [place] [id number] May, [facility] [address] [id number] [address] [place] [address], [place] [id number] Apr, [facility] [address] [id number] [address] [place] [address], [place] [id number] Apr, [facility] [address] [id number] [address] [place] [address], [place] [phone] Apr, [facility] [address] [id number] [address] [place] [id number] Jan, [facility] [address] [id number] [address] [place] [id number] Dec, [facility] [address] [id number] [address] [place] [id number] October, [facility] [address] [id number] [address] [place] [address], [place] [id number] Jun, [facility] [address] [id number] [address] [place] [id number] 23 Apr, 2009 [facility] [address] [id number] [address] [place] [id number] 13 Apr, 2009 [facility] [address] [id number] [address] [place] [phone] Apr, [facility] [address] [facility] [id number] [address] [place] [phone] Jun, IMMUNIZATIONS No Known Immunizations SOCIAL HISTORY Never Assessed REASON FOR VISIT Need for appointment PLAN OF CARE VITAL SIGNS MEDICATIONS Unknown Medications RESULTS No Results PROCEDURES No Known procedures INSTRUCTIONS MEDICATIONS ADMINISTERED No Known Medications MEDICAL (GENERAL) HISTORY Type Description Date Medical History Psychiatric disorder Medical History Hard of hearing Surgical History Neofibrous tumor Surgical History back injection Hospitalization History Intestinal blockage Hospitalization History past psychiatric hospitalizations x2
--- OUTSIDE RECORDS SUMMARY | 2020-01-25 13:38 | XMS REPORT ---
Author Author FRANCINE Ana SUTHERLANDN [facility] Address [address] [place] [address] Care Team Providers Care Case Management Specialist Name Role Phone Jackie ESCAMILLAYEN Unavailable PROBLEMS Type Condition ICD9-CM Code BIA11-LN Code Onset Dates Condition S tatus SNOMED Code Problem Attention deficit R41.840 Active 76 168415 Problem Cannabis abuse F12.10 Active 21652 009 Problem Chronic hepatitis C without hepatic coma B18.2 Active 160641486 Problem Attention deficit hyperactivity disorder (ADHD), combi luciano type F90.2 Active 66631058 Problem Bipolar disorder, in partial remission, most rec ent episode hypomanic F31.71 Active 695110467 Problem H/O laminectomy Z98.89 Active 1616 04290 Problem Bipolar 1 disorder F31.9 Active 3 00317659 Problem Anxiety disorder, unspecified type F41.9 Active 651791170 Problem Other chronic pain G89.29 Active 8 5128903 ALLERGIES Substance Reaction Event Type Date Status Zyprexa Unknown Drug Allergy Dec, Active Amitiza Unknown Non Drug Allergy Dec, Active Hydrocodone Failed UDS (opiates, & THC) Non Drug Allergy Dec, 017 Active Benzodiazepines Failed UDS (opiates, & THC) Non Drug Allergy Dec Active ENCOUNTERS Encounter Location Date Diagnosis [facility] [address] [facility] [id number] [address] [place] [address] Oct, [facility] [address] [facility] [id number] [address] [place] [address] Aug, Bipolar disorder, in partial remission, most recent episode hypomanic F31.71 [facility] [address] [facility] [id number] [address] [place] [id number] 15 Aug, 2017 Bipolar disorder, in partial remission, most recent episode hypomanic F31.71 [facility] [address] [facility] [id number] [address] [place] [address] Aug, Bipolar disorder, in partial remission, most recent episode hypomanic F31.71 [facility] [address] [facility] [id number] [address] [place] [address] Jul, Bipolar disorder, in partial remission, most recent episode hypomanic F31.71 ; Attention deficit hyperactivity disorder (ADHD), combined type F90.2 and Anxiety disorder, unspecified type F41.9 [facility] [address] [facility] [id number] [address] [place] [address] Jul, Bipolar disorder, in partial remission, most recent episode hypomanic F31.71 [facility] [address] [facility] [id number] [address] [place] [address] Jun, Bipolar disorder, in partial remission, most recent episode hypomanic F31.71 [facility] [address] [facility] [id number] [address] [place] [address] May, Bipolar disorder, in partial remission, most recent episode hypomanic F31.71 [facility] [address] [facility] [id number] [address] [place] [address] May, Bipolar disorder, in partial remission, most recent episode hypomanic F31.71 [facility] [address] [facility] [id number] [address] [place] [address] Apr, [facility] [address] [facility] [id number] [address] [place] [address] Apr, Bipolar disorder, in partial remission, most recent episode hypomanic F31.71 ; Attention deficit hyperactivity disorder (ADHD), combined type F90.2 ; Anxiety disorder, unspecified type F41.9 and Cannabis abuse F12.10 [facility] [address] [facility] [id number] [address] [place] [address] Apr, Attention deficit hyperactiv ity disorder (ADHD), combined type F90.2 [facility] [address] [facility] [id number] [address] [place] [address] Mar, Attention deficit hyperactiv ity disorder (ADHD), combined type F90.2 [facility] [address] [id number] [address] [place] [id number] 14 Mar, 2017 Anxiety disorder, unspecifie d type F41.9 [facility] [address] [id number] [address] [place] [address] Jan, Attention deficit hyperactiv ity disorder (ADHD), combined type F90.2 [facility] [address] [facility] [id number] [address] [place] [id number] Jan, Anxiety disorder, unspecifie d type F41.9 [facility] [address] [facility] [id number] [address] [place] [address] Jan, Other chronic pain G89.29 ; Chronic hepatitis C without hepatic coma B18.2 and Bipolar 1 disorder F31.9 [facility] [address] [facility] [id number] [address] [place] [address] Dec, Attention deficit hyperactiv ity disorder (ADHD), combined type F90.2 [facility] [address] [facility] [id number] [address] [place] [address] Dec, Bipolar disorder, in partial remission, most recent episode hypomanic F31.71 ; Attention deficit hyperactivity disorder (ADHD), combined type F90.2 and Anxiety disorder, unspecified type F41.9 [facility] [address] [facility] [id number] [address] [place] [address] Dec, Bipolar disorder, in partial remission, most recent episode hypomanic F31.71 ; Attention deficit hyperactivity disorder (ADHD), combined type F90.2 and Anxiety disorder, unspecified type F41.9 [facility] [address] [facility] [id number] [address] [place] [address] Dec, Bipolar 1 disorder F31.9 and Attention deficit R41.840 [facility] [address] [facility] [id number] [address] [place] [address] Oct, Other chronic pain G89.29 ; Alopecia L65.9 and Screening, lipid Z13.220 [facility] [address] [id number] [address] [place] [address] Oct, [facility] [address] [id number] [address] [place] [address] Aug, [facility] [address] [facility] [id number] [address] [place] [address] Aug, Eustachian tube dysfunction, right H69.81 ; Vertigo R42 and Other chronic pain G89.29 [facility] [address] [id number] [address] [place] [address] Aug, [facility] [address] [id number] [address] [place] [address] Jun, [facility] [address] [facility] [id number] [address] [place] [address] Jun, Low back pain M54.5 and Othe r chronic pain G89.29 [facility] [address] [id number] [address] [place] [address] Jun, [facility] [address] [facility] [id number] [address] [place] [address] May, [facility] [address] [facility] [id number] [address] [place] [address] Jan, [facility] [address] [facility] [id number] [address] [place] [address] Dec, [facility] [address] [id number] [address] [place] [id number] Dec, [facility] [address] [id number] [address] [place] [address] Jun, [facility] [address] [facility] [id number] [address] [place] [address] Apr, Eustachian tube dysfunction, unspecified laterality H69.80 ; Hot flashes N95.1 and Encounter for immunization Z23 [facility] [address] [id number] [address] [place] [phone] Jan, [facility] [address] [id number] [address] [place] [phone] Jan, [facility] [address] [id number] [address] [place] [address] Jan, [facility] [address] [id number] [address] [place] [address] Jan, [facility] [address] [id number] [address] [place] [address] Jan, Encounter to establish care V65.8 ; Bipolar 1 disorder 296.7 ; Abdominal pain 789.00 ; Constipation 564.00 ; Hard of hearing 389.9 and Drug abuse 305.90 [facility] [address] [id number] [address] [place] [address] Dec, [facility] [address] [id number] [address] [place] [address] October, [facility] [address] [id number] [address] [place] [address] October, [facility] [address] [id number] [address] [place] [address] Oct, [facility] [address] [id number] [address] [place] [phone] Oct, [facility] [address] [id number] [address] [place] [phone] Oct, [facility] [address] [id number] [address] [place] [phone] Aug, [facility] [address] [id number] [address] [place] [phone] Aug, [facility] [address] [id number] [address] [place] [phone] Aug, [facility] [address] [id number] [address] [place] [phone] Aug, 2014 [facility] [address] [id number] [address] [place] [address], [place] [address] Aug, 2014 [facility] [address] [id number] [address] [place] [address], [place] [address] Aug, 2014 [facility] [address] [id number] [address] [place] [address], [place] [address] Aug, 2014 [facility] [address] [id number] [address] [place] [address], [place] [address] Aug, 2014 [facility] [address] [id number] [address] [place] [address], [place] [address] Aug, 2014 [facility] [address] [id number] [address] [place] [address], [place] [address] Aug, 2014 [facility] [address] [id number] [address] [place] [address], [place] [address] Aug, 2014 [facility] [address] [id number] [address] [place] [address], [place] [address] Aug, [facility] [address] [id number] [address] [place] [address], [place] [address] Aug, 2014 [facility] [address] [id number] [address] [place] [phone] Aug, [facility] [address] [id number] [address] [place] [address], [place] [address] Aug, [facility] [address] [id number] [address] [place] [phone] Jul, [facility] [address] [id number] [address] [place] [phone] Jul, [facility] [address] [id number] [address] [place] [phone] Jul, [facility] [address] [id number] [address] [place] [phone] Jul, [facility] [address] [id number] [address] [place] [address], [place] [address] Jul, [facility] [address] [id number] [address] [place] [address], [place] [address] Jul, [facility] [address] [id number] [address] [place] [address], [place] [address] Jul, [facility] [address] [id number] [address] [place] [address], [place] [address] Jul, [facility] [address] [id number] [address] [place] [address], [place] [address] Jun, [facility] [address] [id number] [address] [place] [address], [place] [address] Jun, [facility] [address] [id number] [address] [place] [address], [place] [address] Jun, [facility] [address] [id number] [address] [place] [address], [place] [address] Jun, [facility] [address] [id number] [address] [place] [address], [place] [address] Jun, [facility] [address] [id number] [address] [place] [address], [place] [address] Jun, [facility] [address] [id number] [address] [place] [address], [place] [address] Jun, [facility] [address] [id number] [address] [place] [address], [place] [address] Jun, [facility] [address] [id number] [address] [place] [address], [place] [address] Jun, [facility] [address] [id number] [address] [place] [address], [place] [address] Jun, [facility] [address] [id number] [address] [place] [address], [place] [address] Jun, [facility] [address] [id number] [address] [place] [address], [place] [address] May, [facility] [address] [id number] [address] [place] [address], [place] [address] May, [facility] [address] [id number] [address] [place] [address], [place] [address] May, [facility] [address] [id number] [address] [place] [address], [place] [address] May, [facility] [address] [id number] [address] [place] [address], [place] [address] May, [facility] [address] [id number] [address] [place] [address], [place] [address] May, [facility] [address] [id number] [address] [place] [address], [place] [address] May, [facility] [address] [id number] [address] [place] [address], [place] [address] Apr, [facility] [address] [id number] [address] [place] [address], [place] [address] Apr, [facility] [address] [id number] [address] [place] [address], [place] [address] Apr, [facility] [address] [id number] [address] [place] [address], [place] [address] Apr, [facility] [address] [id number] [address] [place] [address], [place] [address] Apr, [facility] [address] [id number] [address] [place] [address], [place] [address] Apr, [facility] [address] [id number] [address] [place] [address], [place] [address] Mar, [facility] [address] [id number] [address] [place] [address], [place] [address] 29 Mar, 2014 [facility] [address] [id number] [address] [place] [address], [place] [address] Mar, [facility] [address] [id number] [facility] [place] [address] Mar, [facility] [address] [id number] [address] [place] [address], [place] [address] Mar, [facility] [address] [id number] [address] [place] [address], [place] [address] Mar, [facility] [address] [id number] [address] [place] [address], [place] [address] Jan, [facility] [address] [id number] [address] [place] [address], [place] [address] Jan, [facility] [address] [id number] [address] [place] [address], [place] [address] Jan, [facility] [address] [id number] [address] [place] [address], [place] [address] Jan, [facility] [address] [id number] [address] [place] [address], [place] [address] Dec, [facility] [address] [id number] [address] [place] [address], [place] [address] Dec, [facility] [address] [id number] [address] [place] [address], [place] [address] Dec, [facility] [address] [id number] [address] [place] [address], [place] [address] Dec, [facility] [address] [id number] [address] [place] [address], [place] [address] Dec, [facility] [address] [id number] [address] [place] [address], [place] [address] Dec, [facility] [address] [id number] [address] [place] [address], [place] [address] Dec, [facility] [address] [id number] [address] [place] [address], [place] [address] Dec, [facility] [address] [id number] [address] [place] [address], [place] [address] Dec, [facility] [address] [id number] [facility] [place] [address] Dec, [facility] [address] [id number] [address] [place] [address], [place] [address] Dec, [facility] [address] [id number] [address] [place] [address], [place] [address] Dec, [facility] [address] [id number] [address] [place] [address], [place] [address] October, [facility] [address] [id number] [address] [place] [address], [place] [address] October, [facility] [address] [id number] [address] [place] [address], [place] [address] October, [facility] [address] [id number] [address] [place] [address], [place] [address] October, [facility] [address] [id number] [address] [place] [address], [place] [address] October, [facility] [address] [id number] [address] [place] [address], [place] [address] October, [facility] [address] [id number] [address] [place] [address], [place] [address] Oct, [facility] [address] [id number] [address] [place] [address], [place] [address] Oct, [facility] [address] [id number] [address] [place] [address], [place] [address] Oct, [facility] [address] [id number] [address] [place] [address], [place] [address] Oct, [facility] [address] [id number] [address] [place] [address], [place] [address] Oct, [facility] [address] [id number] [address] [place] [address], [place] [address] Oct, [facility] [address] [id number] [facility] [place] [address] Oct, [facility] [address] [id number] [address] [place] [address], [place] [address] Oct, [facility] [address] [id number] [address] [place] [address], [place] [address] Oct, [facility] [address] [id number] [address] [place] [address], [place] [address] Oct, [facility] [address] [id number] [address] [place] [address], [place] [address] Oct, [facility] [address] [id number] [address] [place] [address], [place] [address] Oct, [facility] [address] [id number] [address] [place] [address], [place] [address] Aug, [facility] [address] [id number] [address] [place] [address], [place] [address] Aug, [facility] [address] [id number] [address] [place] [address], [place] [address] Aug, [facility] [address] [id number] [address] [place] [address], [place] [address] Aug, [facility] [address] [id number] [address] [place] [address], [place] [address] Aug, [facility] [address] [id number] [address] [place] [address], [place] [address] Aug, [facility] [address] [id number] [address] [place] [address], [place] [address] Aug, [facility] [address] [id number] [address] [place] [address], [place] [address] Aug, [facility] [address] [id number] [address] [place] [address], [place] [address] Aug, [facility] [address] [id number] [address] [place] [address], [place] [address] Aug, [facility] [address] [id number] [address] [place] [address], [place] [address] Aug, 2013 [facility] [address] [id number] [address] [place] [address], [place] [address] Aug, 2013 [facility] [address] [id number] [address] [place] [address], [place] [address] Aug, 2013 [facility] [address] [id number] [address] [place] [address], [place] [address] 20 Aug, 2013 [facility] [address] [id number] [address] [place] [address], [place] [address] 14 Aug, 2013 [facility] [address] [id number] [address] [place] [address], [place] [address] 14 Aug, 2013 [facility] [address] [id number] [address] [place] [address], [place] [address] 14 Aug, 2013 [facility] [address] [id number] [address] [place] [address], [place] [address] 14 Aug, 2013 [facility] [address] [id number] [address] [place] [address], [place] [address] 07 Aug, 2013 [facility] [address] [id number] [address] [place] [address], [place] [address] 07 Aug, 2013 [facility] [address] [id number] [address] [place] [address], [place] [address] 06 Aug, 2013 [facility] [address] [id number] [address] [place] [address], [place] [address] 06 Aug, 2013 [facility] [address] [id number] [address] [place] [address], [place] [address] 04 Aug, 2013 [facility] [address] [id number] [address] [place] [address], [place] [address] 04 Aug, 2013 [facility] [address] [id number] [address] [place] [address], [place] [address] 03 Aug, 2013 [facility] [address] [id number] [address] [place] [address], [place] [address] Jul, [facility] [address] [id number] [address] [place] [address], [place] [address] Jul, [facility] [address] [id number] [address] [place] [address], [place] [address] Jul, [facility] [address] [id number] [address] [place] [address], [place] [address] Jul, [facility] [address] [id number] [address] [place] [address], [place] [address] Jul, [facility] [address] [id number] [address] [place] [address], [place] [address] Jul, [facility] [address] [id number] [address] [place] [address], [place] [address] Jul, [facility] [address] [id number] [address] [place] [address], [place] [address] Jul, [facility] [address] [id number] [address] [place] [address], [place] [address] Jul, [facility] [address] [id number] [address] [place] [address], [place] [address] Jul, [facility] [address] [id number] [address] [place] [address], [place] [address] Jul, [facility] [address] [id number] [address] [place] [address], [place] [address] Jul, [facility] [address] [id number] [address] [place] [address], [place] [address] Jul, [facility] [address] [id number] [address] [place] [address], [place] [address] Jul, [facility] [address] [id number] [address] [place] [address], [place] [address] 07 Jul, 2013 [facility] [address] [id number] [address] [place] [address], [place] [address] Jul, [facility] [facility] [address] [id number] [address] [place] [address], [place] [address] Jul, [facility] [address] [id number] [address] [place] [address], [place] [address] Jul, [facility] [address] [id number] [address] [place] [address], [place] [address] Jul, [facility] [address] [id number] [address] [place] [address], [place] [address] Jul, [facility] [address] [id number] [address] [place] [address], [place] [address] Jun, [facility] [address] [id number] [address] [place] [address], [place] [address] Jun, [facility] [address] [id number] [address] [place] [address], [place] [address] Jun, [facility] [address] [id number] [address] [place] [address], [place] [address] Jun, [facility] [address] [id number] [address] [place] [address], [place] [address] Jun, [facility] [address] [id number] [address] [place] [address], [place] [address] Jun, [facility] [address] [id number] [address] [place] [address], [place] [address] Jun, [facility] [address] [id number] [address] [place] [address], [place] [address] Jun, [facility] [address] [id number] [address] [place] [address], [place] [address] Jun, [facility] [address] [id number] [address] [place] [address], [place] [address] Jun, [facility] [address] [id number] [address] [place] [address], [place] [address] Jun, [facility] [address] [id number] [address] [place] [address], [place] [address] 23 Jun, 2013 [facility] [address] [id number] [address] [place] [address], [place] [address] 23 Jun, 2013 [facility] [address] [id number] [address] [place] [address], [place] [address] 20 Jun, 2013 [facility] [address] [id number] [address] [place] [address], [place] [address] 20 Jun, 2013 [facility] [address] [id number] [address] [place] [address], [place] [address] 18 Jun, 2013 [facility] [address] [id number] [address] [place] [address], [place] [address] 18 Jun, 2013 [facility] [address] [id number] [address] [place] [address], [place] [address] 17 Jun, 2013 [facility] [address] [id number] [address] [place] [address], [place] [address] 17 Jun, 2013 [facility] [address] [id number] [address] [place] [address], [place] [address] 13 Jun, 2013 [facility] [address] [id number] [address] [place] [address], [place] [address] 12 Jun, 2013 [facility] [address] [id number] [address] [place] [address], [place] [address] 12 Jun, 2013 [facility] [address] [id number] [address] [place] [address], [place] [address] 09 Jun, 2013 [facility] [address] [id number] [address] [place] [address], [place] [address] 05 Jun, 2013 [facility] [address] [id number] [address] [place] [address], [place] [address] 05 Jun, 2013 [facility] [address] [id number] [address] [place] [address], [place] [address] 04 Jun, 2013 [facility] [address] [id number] [address] [place] [address], [place] [address] Jun, [facility] [address] [id number] [address] [place] [address], [place] [address] May, [facility] [address] [id number] [address] [place] [address], [place] [address] May, [facility] [address] [id number] [address] [place] [address], [place] [address] May, [facility] [address] [id number] [address] [place] [address], [place] [address] May, [facility] [address] [id number] [address] [place] [address], [place] [address] May, [facility] [address] [id number] [address] [place] [address], [place] [address] May, [facility] [address] [id number] [address] [place] [address], [place] [address] Apr, [facility] [address] [id number] [address] [place] [address], [place] [address] Apr, [facility] [address] [id number] [address] [place] [address], [place] [address] Apr, [facility] [address] [id number] [address] [place] [address], [place] [address] Apr, [facility] [address] [id number] [address] [place] [address], [place] [address] Apr, [facility] [address] [id number] [address] [place] [address] Apr, [facility] [address] [id number] [address] [place] [address], [place] [address] Apr, [facility] [address] [id number] [address] [place] [address], [place] [address] Apr, [facility] [address] [id number] [address] [place] [address] Mar, [facility] [address] [id number] [address] [place] [id number] 24 Mar, 2012 [facility] [address] [id number] [address] [place] [address], [place] [address] 17 Mar, 2012 [facility] [address] [id number] [address] [place] [address], [place] [address] 17 Mar, 2012 [facility] [address] [id number] [address] [place] [address], [place] [address] 11 Mar, 2012 [facility] [address] [id number] [address] [place] [address], [place] [address] 10 Mar, 2012 [facility] [address] [id number] [address] [place] [address], [place] [address] 05 Mar, 2013 [facility] [address] [id number] [address] [place] [address], [place] [address] 04 Mar, 2013 [facility] [address] [id number] [address] [place] [address], [place] [address] 20 Jan, 2013 [facility] [address] [id number] [address] [place] [address], [place] [address] Jan, [facility] [address] [id number] [address] [place] [address], [place] [address] 14 Jan, 2013 [facility] [address] [id number] [address] [place] [address], [place] [address] Jan, [facility] [address] [id number] [address] [place] [address], [place] [address] Jan, [facility] [address] [id number] [address] [place] [address], [place] [address] Jan, [facility] [address] [id number] [address] [place] [address], [place] [address] Dec, [facility] [address] [id number] [address] [place] [address], [place] [address] Dec, [facility] [address] [id number] [address] [place] [address], [place] [address] Dec, [facility] [address] [id number] [address] [place] [address], [place] [address] 19 Dec, 2012 [facility] [address] [id number] [address] [place] [address], [place] [address] 18 Dec, 2012 [facility] [address] [id number] [address] [place] [address], [place] [address] 17 Dec, 2012 [facility] [address] [id number] [address] [place] [address], [place] [address] 16 Dec, 2012 [facility] [address] [id number] [address] [place] [address], [place] [address] 16 Dec, 2012 [facility] [address] [id number] [address] [place] [address], [place] [address] 15 Dec, 2012 [facility] [address] [id number] [address] [place] [address], [place] [address] Dec, [facility] [address] [id number] [address] [place] [address], [place] [address] Dec, [facility] [address] [id number] [address] [place] [address], [place] [address] Dec, [facility] [address] [id number] [address] [place] [address], [place] [address] Dec, [facility] [address] [id number] [address] [place] [address], [place] [address] Dec, [facility] [address] [id number] [address] [place] [address], [place] [address] Dec, [facility] [address] [id number] [address] [place] [address], [place] [address] Dec, [facility] [address] [id number] [address] [place] [address], [place] [address] October, [facility] [address] [id number] [address] [place] [address], [place] [address] October, [facility] [address] [id number] [address] [place] [address], [place] [address] October, [facility] [address] [id number] [address] [place] [address], [place] [address] October, [facility] [address] [id number] [address] [place] [address], [place] [address] October, [facility] [address] [id number] [address] [place] [address], [place] [address] October, [facility] [address] [id number] [address] [place] [address], [place] [address] October, [facility] [address] [id number] [address] [place] [address], [place] [address] Oct, [facility] [address] [id number] [address] [place] [address], [place] [address] Oct, [facility] [address] [id number] [address] [place] [address], [place] [address] Oct, [facility] [address] [id number] [address] [place] [address], [place] [address] Oct, [facility] [address] [id number] [address] [place] [address], [place] [address] Oct, [facility] [address] [id number] [address] [place] [address], [place] [address] Oct, [facility] [address] [id number] [address] [place] [address], [place] [address] Oct, [facility] [address] [id number] [address] [place] [address], [place] [address] 15 Oct, 2012 [facility] [address] [id number] [address] [place] [address], [place] [address] Oct, [facility] [address] [id number] [address] [place] [address], [place] [address] Oct, [facility] [address] [id number] [address] [place] [address], [place] [address] Oct, [facility] [address] [id number] [address] [place] [address], [place] [address] 02 Oct, 2012 [facility] [address] [id number] [address] [place] [address], [place] [address] Aug, [facility] [address] [id number] [address] [place] [address], [place] [address] 20 Aug, 2012 [facility] [address] [id number] [address] [place] [address], [place] [address] 12 Aug, 2012 [facility] [address] [id number] [address] [place] [address], [place] [address] 06 Aug, 2012 [facility] [address] [id number] [address] [place] [address], [place] [address] 05 Aug, 2012 [facility] [address] [id number] [address] [place] [address], [place] [address] 05 Aug, 2012 [facility] [address] [id number] [address] [place] [address], [place] [address] 20 Aug, 2012 [facility] [address] [id number] [address] [place] [address], [place] [address] 14 Aug, 2012 [facility] [address] [id number] [address] [place] [address], [place] [address] 12 Aug, 2012 [facility] [address] [id number] [address] [place] [address], [place] [address] Aug, [facility] [address] [id number] [address] [place] [address], [place] [address] 29 Jul, 2012 [facility] [address] [id number] [address] [place] [address], [place] [address] 15 Jul, 2012 [facility] [address] [id number] [address] [place] [address], [place] [address] 08 Jul, 2012 [facility] [address] [id number] [address] [place] [address], [place] [address] Jun, [facility] [address] [id number] [address] [place] [address], [place] [address] Jun, [facility] [address] [id number] [address] [place] [address], [place] [address] 18 Jun, 2012 [facility] [address] [id number] [address] [place] [address], [place] [address] 18 Jun, 2012 [facility] [address] [id number] [address] [place] [address], [place] [address] 18 Jun, 2012 [facility] [address] [id number] [address] [place] [address], [place] [address] 14 Jun, 2012 [facility] [address] [id number] [address] [place] [address], [place] [address] 14 Jun, 2012 [facility] [address] [id number] [address] [place] [address], [place] [address] 13 Jun, 2012 [facility] [address] [id number] [address] [place] [address], [place] [address] 13 Jun, 2012 [facility] [address] [id number] [address] [place] [address], [place] [address] 11 Jun, 2012 [facility] [address] [id number] [address] [place] [address], [place] [address] 11 Jun, 2012 [facility] [address] [id number] [address] [place] [address], [place] [address] 11 Jun, 2012 [facility] [address] [id number] [address] [place] [address], [place] [address] 11 Jun, 2012 [facility] [address] [id number] [address] [place] [address], [place] [address] 07 Jun, 2012 [facility] [address] [id number] [address] [place] [address], [place] [address] 07 Jun, 2012 [facility] [address] [id number] [address] [place] [address], [place] [address] 06 Jun, 2012 [facility] [address] [id number] [address] [place] [address], [place] [address] 06 Jun, 2012 [facility] [address] [id number] [address] [place] [address] Jun, [facility] [address] [id number] [address] [place] [address], [place] [address] Jun, [facility] [address] [id number] [address] [place] [address], [place] [address] Jun, [facility] [address] [id number] [address] [place] [address], [place] [address] Jun, [facility] [address] [id number] [address] [place] [address], [place] [address] Jun, [facility] [address] [id number] [address] [place] [address], [place] [address] Jun, [facility] [address] [id number] [address] [place] [address], [place] [address] May, [facility] [address] [id number] [address] [place] [address], [place] [address] May, [facility] [address] [id number] [address] [place] [address], [place] [address] May, [facility] [address] [id number] [address] [place] [address] May, [facility] [address] [id number] [address] [place] [address], [place] [address] May, [facility] [address] [id number] [address] [place] [address] May, [facility] [address] [id number] [address] [place] [address] May, [facility] [address] [id number] [address] [place] [address], [place] [address] May, [facility] [address] [id number] [address] [place] [address], [place] [address] Apr, [facility] [address] [id number] [address] [place] [address], [place] [address] Apr, [facility] [address] [id number] [address] [place] [address], [place] [address] 29 Apr, 2011 [facility] [address] [id number] [address] [place] [address], [place] [address] 16 Apr, 2012 [facility] [address] [id number] [address] [place] [address], [place] [address] 16 Apr, 2012 [facility] [address] [id number] [address] [place] [address], [place] [address] Apr, [facility] [address] [id number] [address] [place] [address], [place] [address] Apr, [facility] [address] [id number] [address] [place] [address], [place] [address] Apr, [facility] [address] [id number] [address] [place] [address], [place] [address] 09 Apr, 2012 [facility] [address] [id number] [address] [place] [address], [place] [address] 08 Apr, 2012 [facility] [address] [id number] [address] [place] [address], [place] [address] 04 Apr, 2012 [facility] [address] [id number] [address] [place] [address], [place] [address] 02 Apr, 2012 [facility] [address] [id number] [address] [place] [id number] 19 Mar, 2011 [facility] [address] [id number] [address] [place] [address], [place] [address] 18 Sep, 2011 [facility] [address] [id number] [address] [place] [id number] 12 Mar, 2011 [facility] [address] [id number] [address] [place] [address], [place] [address] 12 Mar, 2011 [facility] [address] [id number] [address] [place] [id number] 12 Mar, 2011 [facility] [address] [id number] [place] [id number] Mar, [facility] [address] [id number] [address] [place] [address], [place] [address] Mar, [facility] [address] [id number] [address] [place] [address], [place] [address] Jan, [facility] [address] [id number] [address] [place] [address], [place] [address] Jan, [facility] [address] [id number] [address] [place] [address], [place] [id number] Jan, [facility] [address] [id number] [address] [place] [address], [place] [id number] Jan, [facility] [address] [id number] [address] [place] [address], [place] [address] Jan, [facility] [address] [id number] [address] [place] [address], [place] [address] Jan, [facility] [address] [id number] [address] [place] [address], [place] [address] Jan, [facility] [address] [id number] [address] [place] [address], [place] [address] Jan, [facility] [address] [id number] [address] [place] [address], [place] [address] Jan, [facility] [address] [id number] [address] [place] [address], [place] [address] Jan, [facility] [address] [id number] [address] [place] [address], [place] [address] Jan, [facility] [address] [id number] [address] [place] [address], [place] [address] Dec, [facility] [address] [id number] [address] [place] [address], [place] [address] Dec, [facility] [address] [id number] [address] [place] [address], [place] [address] Dec, [facility] [address] [id number] [address] [place] [address], [place] [address] 26 Jan, 2012 [facility] [address] [id number] [facility] [place] [address] 20 Jan, 2012 [facility] [address] [id number] [address] [place] [address], [place] [address] 19 Jan, 2012 [facility] [address] [id number] [address] [place] [address], [place] [id number] 18 Jan, 2012 [facility] [address] [id number] [address] [place] [address], [place] [address] 17 Jan, 2012 [facility] [address] [id number] [address] [place] [address], [place] [address] 16 Jan, 2012 [facility] [address] [id number] [address] [place] [address], [place] [address] 13 Jan, 2012 [facility] [address] [id number] [address] [place] [address], [place] [address] 13 Jan, 2012 [facility] [address] [id number] [address] [place] [address], [place] [address] 02 Jan, 2012 [facility] [address] [id number] [address] [place] [address], [place] [address] 27 Dec, 2011 [facility] [address] [id number] [address] [place] [address], [place] [address] 27 Dec, 2011 [facility] [address] [id number] [address] [place] [address], [place] [address] 25 Dec, 2011 [facility] [address] [id number] [address] [place] [address], [place] [address] 18 Dec, 2011 [facility] [address] [id number] [address] [place] [address], [place] [address] 15 Dec, 2011 [facility] [address] [id number] [address] [place] [address], [place] [address] 06 Dec, 2011 [facility] [address] [id number] [address] [place] [address], [place] [address] 05 Dec, 2011 [facility] [address] [id number] [address] [place] [address], [place] [address] October, [facility] [address] [id number] [address] [place] [address], [place] [address] October, [facility] [address] [id number] [address] [place] [address], [place] [address] October, [facility] [address] [id number] [address] [place] [address], [place] [address] October, [facility] [address] [id number] [address] [place] [address], [place] [address] October, [facility] [address] [id number] [address] [place] [address], [place] [address] October, [facility] [address] [id number] [address] [place] [address], [place] [address] Oct, [facility] [address] [id number] [address] [place] [address], [place] [address] Oct, [facility] [address] [id number] [address] [place] [address], [place] [address] Oct, [facility] [address] [address] [id number] [address] [place] [address], [place] [address] Oct, [facility] [address] [id number] [address] [place] [address], [place] [address] Oct, [facility] [address] [id number] [address] [place] [address], [place] [address] Oct, [facility] [address] [id number] [address] [place] [address], [place] [address] Oct, [facility] [address] [id number] [address] [place] [address], [place] [address] Aug, [facility] [address] [id number] [address] [place] [address], [place] [address] Aug, [facility] [address] [id number] [address] [place] [address], [place] [address] Aug, [facility] [address] [id number] [facility] [place] [address] 13 Sep, 2011 [facility] [address] [id number] [address] [place] [address], [place] [address] Aug, [facility] [address] [id number] [address] [place] [address], [place] [address] 05 Sep, 2011 [facility] [address] [id number] [address] [place] [address], [place] [address] Aug, [facility] [address] [id number] [address] [place] [address], [place] [address] Aug, [facility] [address] [id number] [address] [place] [address], [place] [address] 08 Aug, 2011 [facility] [address] [id number] [address] [place] [address], [place] [address] Jul, [facility] [address] [id number] [address] [place] [address], [place] [address] Jul, [facility] [address] [id number] [address] [place] [address], [place] [address] Jul, [facility] [address] [id number] [address] [place] [address], [place] [address] Jul, [facility] [address] [id number] [address] [place] [address], [place] [address] Jun, [facility] [address] [id number] [address] [place] [address], [place] [address] Jun, [facility] [address] [id number] [address] [place] [address], [place] [address] May, [facility] [address] [id number] [address] [place] [address], [place] [address] May, [facility] [address] [id number] [address] [place] [address], [place] [address] May, [facility] [address] [id number] [address] [place] [phone] May, [facility] [address] [id number] [address] [place] [phone] May, [facility] [address] [id number] [address] [place] [id number] Apr, [facility] [address] [id number] [address] [place] [phone] Apr, [facility] [address] [id number] [address] [place] [phone] Apr, [facility] [address] [id number] [address] [place] [phone] Jan, [facility] [address] [id number] [address] [place] [phone] Dec, [facility] [address] [id number] [address] [place] [phone] October, [facility] [address] [id number] [address] [place] [id number] Jun, [facility] [address] [id number] [address] [place] [id number] Apr, [facility] [address] [id number] [address] [place] [id number] Apr, [facility] [address] [id number] [address] [place] [id number] Apr, [facility] [address] [id number] [address] [place] [phone] Jun, IMMUNIZATIONS No Known Immunizations SOCIAL HISTORY Never Assessed REASON FOR VISIT hossein- Brynn San RN PLAN OF CARE Activity Details Follow Up 4 Weeks Reason:medication f/ u appointment VITAL SIGNS Height 69 in 2016-12-28 Weight 201 lbs 2016-12-28 Respiratory Rate 18 2016-12-28 BMI 29.68 kg/m2 2016-12-28 Blood pressure systolic 122 mmHg 2016-12-28 Blood pressure diastolic 70 mmHg 2016-12-28 MEDICATIONS Medication Instructions Dosage Frequency Start Date End Date Duration S tatus Adderall 10 mg Orally 3 times a day 1 tablet 8h Dec, 30 days Active Seroquel 400 mg Orally Once a day 2 tablet by Oral rou te 1 time per day at bedtime 24h Jul, 30 days Active Plus Iron 29-1 MG Orally Once a day 1 tablet 24h 24 2016 90 days Active HydrOXYzine HCl 50 mg Orally 3 times a day 1 tablet as needed 8h 30 days Active Gabapentin 800 MG Orally 4 times a day 1 tablet 6h 28 days Active Prazosin HCl 5 mg Orally Once a day 1 capsule at bedtime 24h 30 days Active Valium 5 mg Orally Twice a day 1 tablet as needed 12h 30 days Active RESULTS No Results PROCEDURES Procedure Date Ordered Result Body Site [facility] VISIT ESTABLISHED PATIENT December 28, 2016 INSTRUCTIONS MEDICATIONS ADMINISTERED No Known Medications MEDICAL (GENERAL) HISTORY Type Description Date Medical History Psychiatric disorder Medical History Hard of hearing Surgical History Neofibrous tumor Surgical History back injection Hospitalization History Intestinal blockage Hospitalization History past psychiatric hospitalizations x2
--- OUTSIDE RECORDS SUMMARY | 2020-01-25 13:39 | XMS REPORT ---
Author Author Ana HALE [facility] Address [address] [place] [address] Care Team Providers Care Network Engineering Advisor Name Role Phone JAJA HALE Unavailable PROBLEMS Type Condition ICD9-CM Code [id number] Code Onset Dates Condition S tatus SNOMED Code Problem Attention deficit R41.840 Active 76 324556 Problem Cannabis abuse F12.10 Active 54652 009 Problem Chronic hepatitis C without hepatic coma B18.2 Active 932866393 Problem Attention deficit hyperactivity disorder (ADHD), combi luciano type F90.2 Active 32404955 Problem Bipolar disorder, in partial remission, most rec ent episode hypomanic F31.71 Active 680000812 Problem H/O laminectomy Z98.89 Active 1616 48366 Problem Bipolar 1 disorder F31.9 Active 3 08853446 Problem Anxiety disorder, unspecified type F41.9 Active 744278058 Problem Other chronic pain G89.29 Active 8 3339388 ALLERGIES Substance Reaction Event Type Date Status Zyprexa Unknown Drug Allergy Aug, Active Amitiza Unknown Non Drug Allergy Aug, Active Hydrocodone Failed UDS (opiates, & THC) Non Drug Allergy Aug, 017 Active Benzodiazepines Failed UDS (opiates, & THC) Non Drug Allergy Aug Active SOCIAL HISTORY Never Assessed PLAN OF CARE Activity Details Follow Up 3 Months Reason:pain mgmt VITAL SIGNS Height 69 in 2016-09-22 Weight 186.4 lbs 2016-09-22 Temperature 98.0 degrees Fahrenheit 2016-09-22 Heart Rate 96 bpm 2016-09-22 Respiratory Rate 20 2016-09-22 BMI 27.52 kg/m2 2016-09-22 Blood pressure systolic 118 mmHg 2016-09-22 Blood pressure diastolic 78 mmHg 2016-09-22 MEDICATIONS Medication Instructions Dosage Frequency Start Date End Date Duration S tatus Fluticasone Propionate 50 MCG/ACT Nasally twice a day 1 spray in each nostril 12h Aug, 30 day(s) Active Seroquel 400 mg 2 tablet by Oral rou te 1 time per day at bedtime (Take with 200mg) Jul, Active Gabapentin 600 MG Orally 4 times a day 1 tablet 6h 28 days Active HydrOXYzine HCl 50 mg Orally 3 times a day 1 tablet as needed 8h 30 days Active Meclizine HCl 25 MG Orally twice a day 1 tablet as needed for verti go 12h Aug, Active Valium 5 MG Orally Twice a day 1 tablet as needed 12h Active Adderall 10 mg Orally 3 times a day 1 tablet 8h Active Quad Cane N/A as directed Jan, A ctive Prazosin HCl 5 MG Orally Once a day 1 capsule at bedtime 24h Active RESULTS No Results PROCEDURES Procedure Date Ordered Result Body Site [facility] VISIT ESTABLISHED PATIENT September 22, 2016 IMMUNIZATIONS No Known Immunizations MEDICAL (GENERAL) HISTORY Type Description Date Medical History Psychiatric disorder Medical History Hard of hearing Surgical History Neofibrous tumor Surgical History back injection Hospitalization History Intestinal blockage Hospitalization History past psychiatric hospitalizations x2
--- OUTSIDE RECORDS SUMMARY | 2020-01-25 13:39 | XMS REPORT ---
Author Author Ana ESCAMILLA KWAME [facility] Address [address] [place] [address] Care Team Providers Care Rn Physician Office Name Role Phone FRANCINE, KWAME Unavailable PROBLEMS Type Condition ICD9-CM Code [id number] Code Onset Dates Condition S tatus SNOMED Code Problem Attention deficit R41.840 Active 76 264594 Problem Cannabis abuse F12.10 Active 49396 009 Problem Chronic hepatitis C without hepatic coma B18.2 Active 002685902 Problem Attention deficit hyperactivity disorder (ADHD), combi luciano type F90.2 Active 09559328 Problem Bipolar disorder, in partial remission, most rec ent episode hypomanic F31.71 Active 950049951 Problem H/O laminectomy Z98.89 Active 1616 43053 Problem Bipolar 1 disorder F31.9 Active 3 21821748 Problem Anxiety disorder, unspecified type F41.9 Active 369104498 Problem Other chronic pain G89.29 Active 8 [id number] ALLERGIES No Information ENCOUNTERS Encounter Location Date Diagnosis [facility] [place] [address] [facility] [id number] [address] [place] [address] Oct, [facility] [place] [address] [facility] [id number] [address] [place] [address] Oct, Bipolar disorder, in partial remission, most recent episode hypomanic F31.71 [facility] [place] [address] [facility] [id number] [address] [place] [address] Oct, Bipolar disorder, in partial remission, most recent episode hypomanic F31.71 [facility] [place] [address] [facility] [id number] [address] [place] [address] Aug, Bipolar disorder, in partial remission, most recent episode hypomanic F31.71 [facility] [place] [address] [facility] [id number] [address] [place] [address] Aug, Bipolar disorder, in partial remission, most recent episode hypomanic F31.71 [facility] [place] [address] [id number] [address] [place] [address] Aug, Bipolar disorder, in partial remission, most recent episode hypomanic F31.71 [facility] [place] [address] [id number] [address] [place] [address] Jul, Bipolar disorder, in partial remission, most recent episode hypomanic F31.71 ; Attention deficit hyperactivity disorder (ADHD), combined type F90.2 and Anxiety disorder, unspecified type F41.9 [facility] [place] [address] [id number] [address] [place] [address] Jul, Bipolar disorder, in partial remission, most recent episode hypomanic F31.71 [facility] [place] [address] [facility] [id number] [address] [place] [address] Jun, Bipolar disorder, in partial remission, most recent episode hypomanic F31.71 [facility] [place] [address] [id number] [address] [place] [address] May, Bipolar disorder, in partial remission, most recent episode hypomanic F31.71 [facility] [place] [address] [facility] [id number] [address] [place] [address] May, Bipolar disorder, in partial remission, most recent episode hypomanic F31.71 [facility] [place] [address] [facility] [id number] [address] [place] [address] Apr, [facility] [place] [address] [facility] [id number] [address] [place] [address] Apr, Bipolar disorder, in partial remission, most recent episode hypomanic F31.71 ; Attention deficit hyperactivity disorder (ADHD), combined type F90.2 ; Anxiety disorder, unspecified type F41.9 and Cannabis abuse F12.10 [facility] [place] [address] [id number] [address] [place] [address] Apr, Attention deficit hyperactiv ity disorder (ADHD), combined type F90.2 [facility] [place] [address] [id number] [address] [place] [address] Mar, Attention deficit hyperactiv ity disorder (ADHD), combined type F90.2 [facility] [place] [address] [id number] [address] [place] [address] 14 Mar, 2017 Anxiety disorder, unspecifie d type F41.9 [facility] [place] [address] [id number] [address] [place] [address] Jan, Attention deficit hyperactiv ity disorder (ADHD), combined type F90.2 [facility] [place] [address] [id number] [address] [place] [address] Jan, Anxiety disorder, unspecifie d type F41.9 [facility] [place] [address] [facility] [id number] [address] [place] [address] Jan, Other chronic pain G89.29 ; Chronic hepatitis C without hepatic coma B18.2 and Bipolar 1 disorder F31.9 [facility] [place] [address] [facility] [id number] [address] [place] [phone] Dec, Attention deficit hyperactiv ity disorder (ADHD), combined type F90.2 [facility] [place] [address] [facility] [id number] [address] [place] [address] Dec, Bipolar disorder, in partial remission, most recent episode hypomanic F31.71 ; Attention deficit hyperactivity disorder (ADHD), combined type F90.2 and Anxiety disorder, unspecified type F41.9 [facility] [place] [address] [facility] [id number] [address] [place] [address] Dec, Bipolar disorder, in partial remission, most recent episode hypomanic F31.71 ; Attention deficit hyperactivity disorder (ADHD), combined type F90.2 and Anxiety disorder, unspecified type F41.9 [facility] [place] [address] [facility] [id number] [address] [place] [address] Dec, Bipolar 1 disorder F31.9 and Attention deficit R41.840 [facility] [place] [address] [facility] [id number] [address] [place] [address] Oct, Other chronic pain G89.29 ; Alopecia L65.9 and Screening, lipid Z13.220 [facility] [place] [address] [id number] [address] [place] [address] Oct, [facility] [place] [address] [id number] [address] [place] [address] Aug, [facility] [place] [address] [id number] [address] [place] [address] Aug, Eustachian tube dysfunction, right H69.81 ; Vertigo R42 and Other chronic pain G89.29 [facility] [place] [address] [id number] [address] [place] [address] Aug, [facility] [place] [address] [id number] [address] [place] [address] Jun, [facility] [place] [address] [id number] [address] [place] [address] Jun, Low back pain M54.5 and Othe r chronic pain G89.29 [facility] [place] [address] [id number] [address] [place] [address] Jun, [facility] [place] [address] [id number] [address] [place] [address] May, [facility] [place] [address] [id number] [address] [place] [address] Jan, [facility] [place] [address] [id number] [address] [place] [address] Dec, [facility] [place] [address] [id number] [address] [place] [address] Dec, [facility] [place] [address] [id number] [address] [place] [address] Jun, [facility] [place] [address] [id number] [address] [place] [address] Apr, Eustachian tube dysfunction, unspecified laterality H69.80 ; Hot flashes N95.1 and Encounter for immunization Z23 [facility] [place] [address] [id number] [address] [place] [address] Jan, [facility] [place] [address] [facility] [id number] [address] [place] [address] Jan, [facility] [place] [address] [facility] [id number] [address] [place] [id number] Jan, [facility] [place] [address] [facility] [id number] [address] [place] [address] Jan, [facility] [place] [address] [facility] [id number] [address] [place] [address] Jan, Encounter to establish care V65.8 ; Bipolar 1 disorder 296.7 ; Abdominal pain 789.00 ; Constipation 564.00 ; Hard of hearing 389.9 and Drug abuse 305.90 [facility] [place] [address] [facility] [id number] [address] [place] [address] Dec, [facility] [place] [address] [facility] [id number] [address] [place] [phone] October, [facility] [place] [address] [facility] [id number] [address] [place] [address] October, [facility] [place] [address] [facility] [id number] [address] [place] [address] Oct, [facility] [place] [address] [id number] [address] [place] [address] Oct, [facility] [place] [address] [facility] [id number] [address] [place] [address] Oct, [facility] [place] [address] [facility] [id number] [address] [place] [address] Aug, [facility] [place] [address] [facility] [id number] [address] [place] [phone] Aug, [facility] [place] [address] [facility] [id number] [address] [place] [address] Aug, [facility] [address] [id number] [address] [place] [address], [place] [address] Aug, 2014 [facility] [address] [id number] [address] [place] [address], [place] [address] Aug, 2014 [facility] [address] [id number] [address] [place] [address], [place] [address] Aug, 2014 [facility] [address] [id number] [address] [place] [address], [place] [address] Aug, 2014 [facility] [address] [id number] [address] [place] [address], [place] [address] Aug, 2014 [facility] [address] [id number] [address] [place] [address], [place] [address] Aug, 2014 [facility] [address] [id number] [address] [place] [address], [place] [address] Aug, 2014 [facility] [address] [id number] [address] [place] [address], [place] [address] Aug, 2014 [facility] [address] [id number] [address] [place] [address], [place] [address] Aug, 2014 [facility] [address] [id number] [address] [place] [address], [place] [address] Aug, [facility] [address] [id number] [address] [place] [address], [place] [address] Aug, 2014 [facility] [address] [id number] [address] [place] [address], [place] [address] Aug, 2014 [facility] [address] [id number] [address] [place] [address], [place] [address] Jul, [facility] [address] [id number] [address] [place] [address], [place] [address] Jul, [facility] [address] [id number] [address] [place] [address] Jul, [facility] [address] [id number] [address] [place] [address], [place] [address] Jul, [facility] [address] [id number] [address] [place] [address], [place] [address] Jul, [facility] [address] [id number] [address] [place] [address], [place] [address] Jul, [facility] [address] [id number] [address] [place] [address], [place] [address] Jul, [facility] [address] [id number] [address] [place] [address], [place] [address] Jul, [facility] [address] [id number] [address] [place] [address], [place] [address] Jun, [facility] [address] [id number] [address] [place] [address], [place] [address] Jun, [facility] [address] [id number] [address] [place] [address], [place] [address] Jun, [facility] [address] [id number] [address] [place] [address], [place] [address] Jun, [facility] [address] [id number] [address] [place] [address], [place] [address] Jun, [facility] [address] [id number] [address] [place] [address], [place] [address] Jun, [facility] [address] [id number] [address] [place] [address], [place] [address] Jun, [facility] [address] [id number] [address] [place] [address], [place] [address] Jun, [facility] [address] [id number] [address] [place] [address], [place] [address] Jun, [facility] [address] [id number] [address] [place] [address], [place] [address] Jun, [facility] [address] [id number] [address] [place] [address] Jun, [facility] [address] [id number] [address] [place] [address], [place] [address] May, [facility] [address] [id number] [address] [place] [address], [place] [address] May, [facility] [address] [id number] [address] [place] [address], [place] [address] May, [facility] [address] [id number] [address] [place] [address] May, [facility] [address] [id number] [address] [place] [address], [place] [address] May, [facility] [address] [id number] [address] [place] [address], [place] [address] May, [facility] [address] [id number] [address] [place] [address], [place] [address] May, [facility] [address] [id number] [address] [place] [address], [place] [address] Apr, [facility] [address] [id number] [address] [place] [address] Apr, [facility] [address] [id number] [address] [place] [address], [place] [address] Apr, [facility] [address] [id number] [address] [place] [address] Apr, [facility] [address] [id number] [address] [place] [address] Apr, [facility] [address] [id number] [address] [place] [address], [place] [address] Apr, [facility] [address] [id number] [address] [place] [address], [place] [address] Mar, [facility] [address] [id number] [address] [place] [address], [place] [address] Mar, [facility] [address] [id number] [facility] [address] Mar, 2013 [facility] [address] [id number] [address] [place] [address], [place] [address] Mar, [facility] [address] [id number] [address] [place] [address], [place] [address] Mar, [facility] [address] [id number] [address] [place] [address], [place] [address] Mar, [facility] [address] [id number] [address] [place] [address], [place] [address] Jan, [facility] [address] [id number] [address] [place] [address], [place] [address] Jan, [facility] [address] [id number] [address] [place] [address], [place] [address] Jan, [facility] [address] [id number] [address] [place] [address], [place] [address] Jan, [facility] [address] [id number] [address] [place] [address], [place] [address] Dec, [facility] [address] [id number] [address] [place] [address], [place] [address] Dec, [facility] [address] [id number] [address] [place] [address], [place] [address] Dec, [facility] [address] [id number] [address] [place] [address], [place] [address] Dec, [facility] [address] [id number] [address] [place] [address], [place] [address] Dec, [facility] [address] [id number] [address] [place] [address], [place] [address] Dec, [facility] [address] [id number] [address] [place] [address], [place] [address] Dec, [facility] [address] [id number] [address] [place] [address], [place] [address] Dec, [facility] [address] [id number] [facility] [address] Dec, [facility] [address] [id number] [address] [place] [address], [place] [address] Dec, [facility] [address] [id number] [address] [place] [address], [place] [address] Dec, [facility] [address] [id number] [address] [place] [address], [place] [address] Dec, [facility] [address] [id number] [address] [place] [address], [place] [address] October, [facility] [address] [id number] [address] [place] [address], [place] [address] October, [facility] [address] [id number] [address] [place] [address], [place] [address] October, [facility] [address] [id number] [address] [place] [address], [place] [address] October, [facility] [address] [id number] [address] [place] [address], [place] [address] October, [facility] [address] [id number] [address] [place] [address], [place] [address] October, [facility] [address] [id number] [address] [place] [address], [place] [address] Oct, [facility] [address] [id number] [address] [place] [address], [place] [address] Oct, [facility] [address] [id number] [address] [place] [address], [place] [address] Oct, [facility] [address] [id number] [address] [place] [address], [place] [address] Oct, [facility] [address] [id number] [address] [place] [address], [place] [address] Oct, [facility] [address] [id number] [address] [place] [address], [place] [address] Oct, [facility] [address] [id number] [facility] [address] Oct, [facility] [address] [id number] [address] [place] [address], [place] [address] Oct, [facility] [address] [id number] [address] [place] [address], [place] [address] Oct, [facility] [address] [id number] [address] [place] [address], [place] [address] Oct, [facility] [address] [id number] [address] [place] [address], [place] [address] Oct, [facility] [address] [id number] [address] [place] [address], [place] [address] Oct, [facility] [address] [id number] [address] [place] [address], [place] [address] Aug, [facility] [address] [id number] [address] [place] [address], [place] [address] 15 Aug, 2013 [facility] [address] [id number] [address] [place] [address], [place] [address] Aug, [facility] [address] [id number] [address] [place] [address], [place] [address] Aug, [facility] [address] [id number] [address] [place] [address], [place] [address] 05 Aug, 2013 [facility] [address] [id number] [address] [place] [address], [place] [address] 05 Aug, 2013 [facility] [address] [id number] [address] [place] [address], [place] [address] 04 Aug, 2013 [facility] [address] [id number] [address] [place] [address], [place] [address] 03 Aug, 2013 [facility] [address] [id number] [address] [place] [address], [place] [address] 03 Aug, 2013 [facility] [address] [id number] [address] [place] [address], [place] [address] 24 Aug, 2013 [facility] [address] [id number] [address] [place] [address], [place] [address] 24 Aug, 2013 [facility] [address] [id number] [address] [place] [address], [place] [address] Aug, 2013 [facility] [address] [id number] [address] [place] [address], [place] [address] Aug, 2013 [facility] [address] [id number] [address] [place] [address], [place] [address] 20 Aug, 2013 [facility] [address] [address] [id number] [address] [place] [address], [place] [address] 14 Aug, 2013 [facility] [address] [id number] [address] [place] [address], [place] [address] 14 Aug, 2013 [facility] [address] [id number] [address] [place] [address], [place] [address] 14 Aug, 2013 [facility] [address] [id number] [address] [place] [address], [place] [address] 14 Aug, 2013 [facility] [address] [id number] [address] [place] [address], [place] [address] 07 Aug, 2013 [facility] [address] [id number] [address] [place] [address], [place] [address] 07 Aug, 2013 [facility] [address] [id number] [address] [place] [address], [place] [address] 06 Aug, 2013 [facility] [address] [id number] [address] [place] [address], [place] [address] 06 Aug, 2013 [facility] [address] [id number] [address] [place] [address], [place] [address] 04 Aug, 2013 [facility] [address] [id number] [address] [place] [address], [place] [address] 04 Aug, 2013 [facility] [address] [id number] [address] [place] [address], [place] [address] Aug, [facility] [address] [id number] [address] [place] [address], [place] [address] Jul, [facility] [address] [id number] [address] [place] [address], [place] [address] Jul, [facility] [address] [id number] [address] [place] [address], [place] [address] Jul, [facility] [address] [id number] [address] [place] [address], [place] [address] Jul, [facility] [address] [id number] [address] [place] [address], [place] [address] Jul, [facility] [address] [id number] [address] [place] [address], [place] [address] Jul, [facility] [address] [id number] [address] [place] [address], [place] [address] Jul, [facility] [address] [id number] [address] [place] [address], [place] [address] Jul, [facility] [address] [id number] [address] [place] [address], [place] [address] Jul, [facility] [address] [id number] [address] [place] [address], [place] [address] Jul, [facility] [address] [id number] [address] [place] [address], [place] [address] Jul, [facility] [address] [id number] [address] [place] [address], [place] [address] Jul, [facility] [address] [id number] [address] [place] [address], [place] [address] Jul, [facility] [address] [id number] [address] [place] [address], [place] [address] Jul, [facility] [address] [id number] [address] [place] [address], [place] [address] Jul, [facility] [address] [id number] [address] [place] [address], [place] [address] Jul, [facility] [address] [id number] [address] [place] [address], [place] [address] Jul, [facility] [address] [id number] [address] [place] [address], [place] [address] Jul, [facility] [address] [id number] [address] [place] [address], [place] [address] Jul, [facility] [address] [id number] [address] [place] [address], [place] [address] Jul, [facility] [address] [id number] [address] [place] [address], [place] [address] Jun, [facility] [address] [id number] [address] [place] [address], [place] [address] Jun, [facility] [address] [id number] [address] [place] [address], [place] [address] Jun, [facility] [address] [id number] [address] [place] [address], [place] [address] Jun, [facility] [address] [id number] [address] [place] [address], [place] [address] Jun, [facility] [address] [id number] [address] [place] [address], [place] [address] Jun, [facility] [address] [id number] [address] [place] [address], [place] [address] Jun, [facility] [address] [id number] [address] [place] [address], [place] [address] Jun, [facility] [address] [id number] [address] [place] [address], [place] [address] 24 Jun, 2013 [facility] [address] [id number] [address] [place] [address], [place] [address] Jun, [facility] [address] [id number] [address] [place] [address], [place] [address] Jun, [facility] [address] [id number] [address] [place] [address], [place] [address] Jun, [facility] [address] [id number] [address] [place] [address], [place] [address] Jun, [facility] [address] [id number] [address] [place] [address], [place] [address] Jun, [facility] [address] [id number] [address] [place] [address], [place] [address] 20 Jun, 2013 [facility] [address] [id number] [address] [place] [address], [place] [address] 18 Jun, 2013 [facility] [address] [id number] [address] [place] [address], [place] [address] 18 Jun, 2013 [facility] [address] [id number] [address] [place] [address], [place] [address] 17 Jun, 2013 [facility] [address] [id number] [address] [place] [address], [place] [address] 17 Jun, 2013 [facility] [address] [id number] [address] [place] [address], [place] [address] 13 Jun, 2013 [facility] [address] [id number] [address] [place] [address], [place] [address] 12 Jun, 2013 [facility] [address] [id number] [address] [place] [address], [place] [address] 12 Jun, 2013 [facility] [address] [id number] [address] [place] [address], [place] [address] 09 Jun, 2013 [facility] [address] [id number] [address] [place] [address], [place] [address] 05 Jun, 2013 [facility] [address] [id number] [address] [place] [address], [place] [address] 05 Jun, 2013 [facility] [address] [id number] [address] [place] [address], [place] [address] 04 Jun, 2013 [facility] [address] [id number] [address] [place] [address], [place] [address] Jun, [facility] [address] [id number] [address] [place] [address], [place] [address] May, [facility] [address] [id number] [address] [place] [address], [place] [address] May, [facility] [address] [id number] [address] [place] [address], [place] [address] May, [facility] [address] [id number] [address] [place] [address], [place] [address] May, [facility] [address] [id number] [address] [place] [address], [place] [address] May, [facility] [address] [id number] [address] [place] [address], [place] [address] May, [facility] [address] [id number] [address] [place] [address], [place] [address] Apr, [facility] [address] [id number] [address] [place] [address], [place] [address] Apr, [facility] [address] [id number] [address] [place] [address], [place] [address] Apr, [facility] [address] [id number] [address] [place] [address], [place] [address] Apr, [facility] [address] [id number] [address] [place] [address], [place] [address] Apr, [facility] [address] [id number] [address] [place] [address], [place] [address] Apr, [facility] [address] [id number] [address] [place] [address], [place] [address] Apr, [facility] [address] [id number] [address] [place] [address], [place] [address] Apr, [facility] [address] [id number] [address] [place] [address] 26 Mar, 2012 [facility] [address] [id number] [address] [place] [address], [place] [address] 24 Mar, 2012 [facility] [address] [id number] [address] [place] [address], [place] [address] 17 Mar, 2012 [facility] [address] [id number] [address] [place] [address], [place] [address] 17 Mar, 2012 [facility] [address] [id number] [address] [place] [address], [place] [address] 11 Mar, 2012 [facility] [address] [id number] [address] [place] [address], [place] [address] 10 Mar, 2012 [facility] [address] [id number] [address] [place] [address], [place] [address] 05 Mar, 2012 [facility] [address] [id number] [address] [place] [address], [place] [address] 04 Mar, 2012 [facility] [address] [id number] [address] [place] [address], [place] [address] 20 Jan, 2013 [facility] [address] [id number] [address] [place] [address], [place] [address] Jan, [facility] [address] [id number] [address] [place] [address], [place] [address] 14 Jan, 2013 [facility] [address] [id number] [address] [place] [address], [place] [address] Jan, [facility] [address] [id number] [address] [place] [address], [place] [address] Jan, [facility] [address] [id number] [address] [place] [address], [place] [address] Jan, [facility] [address] [id number] [address] [place] [address], [place] [address] Dec, [facility] [address] [id number] [address] [place] [address], [place] [address] Dec, [facility] [address] [id number] [address] [place] [address], [place] [address] 22 Dec, 2012 [facility] [address] [id number] [address] [place] [address], [place] [address] 19 Dec, 2012 [facility] [address] [id number] [address] [place] [address], [place] [address] 18 Dec, 2012 [facility] [address] [id number] [address] [place] [address], [place] [address] 17 Dec, 2012 [facility] [address] [id number] [address] [place] [address], [place] [address] 16 Dec, 2012 [facility] [address] [id number] [address] [place] [address], [place] [address] 16 Dec, 2012 [facility] [address] [id number] [address] [place] [address], [place] [address] 15 Dec, 2012 [facility] [address] [id number] [address] [place] [address], [place] [address] Dec, [facility] [address] [id number] [address] [place] [address], [place] [address] Dec, [facility] [address] [id number] [address] [place] [address], [place] [address] Dec, [facility] [address] [id number] [address] [place] [address], [place] [address] Dec, [facility] [address] [id number] [address] [place] [address], [place] [address] Dec, [facility] [address] [id number] [address] [place] [address], [place] [address] Dec, [facility] [address] [id number] [address] [place] [address], [place] [address] Dec, [facility] [address] [id number] [address] [place] [address], [place] [address] October, [facility] [address] [id number] [address] [place] [address], [place] [address] October, [facility] [address] [id number] [address] [place] [address], [place] [address] October, [facility] [address] [id number] [address] [place] [address], [place] [address] October, [facility] [address] [id number] [address] [place] [address], [place] [address] October, [facility] [address] [id number] [address] [place] [address], [place] [address] October, [facility] [address] [id number] [address] [place] [address], [place] [address] October, [facility] [address] [id number] [address] [place] [address], [place] [address] Oct, [facility] [address] [id number] [address] [place] [address], [place] [address] Oct, [facility] [address] [id number] [address] [place] [address], [place] [address] Oct, [facility] [address] [id number] [address] [place] [address], [place] [address] Oct, [facility] [address] [id number] [address] [place] [address], [place] [address] Oct, [facility] [address] [id number] [address] [place] [address], [place] [address] Oct, [facility] [address] [id number] [address] [place] [address], [place] [address] 17 Oct, 2012 [facility] [address] [id number] [address] [place] [address], [place] [address] 15 Oct, 2012 [facility] [address] [id number] [address] [place] [address], [place] [address] Oct, [facility] [address] [id number] [address] [place] [address], [place] [address] Oct, [facility] [address] [id number] [address] [place] [address] Oct, [facility] [address] [id number] [address] [place] [address], [place] [address] Oct, [facility] [address] [id number] [address] [place] [address], [place] [address] Aug, [facility] [address] [id number] [address] [place] [address], [place] [address] Aug, [facility] [address] [id number] [address] [place] [address], [place] [address] Aug, [facility] [address] [id number] [address] [place] [address], [place] [address] Aug, [facility] [address] [id number] [address] [place] [address], [place] [address] Aug, [facility] [address] [id number] [address] [place] [address], [place] [address] Aug, [facility] [address] [id number] [address] [place] [address], [place] [address] Aug, [facility] [address] [id number] [address] [place] [address], [place] [address] Aug, [facility] [address] [id number] [address] [place] [address], [place] [address] Aug, [facility] [address] [id number] [address] [place] [address], [place] [address] Aug, [facility] [address] [id number] [address] [place] [address], [place] [address] Jul, [facility] [address] [id number] [address] [place] [address], [place] [address] Jul, [facility] [address] [id number] [address] [place] [address] Jul, [facility] [address] [id number] [address] [place] [address] Jun, [facility] [address] [id number] [address] [place] [address], [place] [address] 18 Jun, 2012 [facility] [address] [id number] [address] [place] [address], [place] [address] 18 Jun, 2012 [facility] [address] [id number] [address] [place] [address], [place] [address] 18 Jun, 2012 [facility] [address] [id number] [address] [place] [address], [place] [address] 18 Jun, 2012 [facility] [address] [id number] [address] [place] [address], [place] [address] 14 Jun, 2012 [facility] [address] [id number] [address] [place] [address], [place] [address] 14 Jun, 2012 [facility] [address] [id number] [address] [place] [address], [place] [address] 13 Jun, 2012 [facility] [address] [id number] [address] [place] [address], [place] [address] 13 Jun, 2012 [facility] [address] [id number] [address] [place] [address], [place] [address] 11 Jun, 2012 [facility] [address] [id number] [address] [place] [address], [place] [address] 11 Jun, 2012 [facility] [address] [id number] [address] [place] [address], [place] [address] 11 Jun, 2012 [facility] [address] [id number] [address] [place] [address], [place] [address] 11 Jun, 2012 [facility] [address] [id number] [address] [place] [address], [place] [address] 07 Jun, 2012 [facility] [address] [id number] [address] [place] [address], [place] [address] 07 Jun, 2012 [facility] [address] [id number] [address] [place] [address], [place] [address] 06 Jun, 2012 [facility] [address] [id number] [address] [place] [address], [place] [address] Jun, [facility] [address] [id number] [address] [place] [address], [place] [address] Jun, [facility] [address] [id number] [address] [place] [address], [place] [address] Jun, [facility] [address] [id number] [address] [place] [address], [place] [address] Jun, [facility] [address] [id number] [address] [place] [address], [place] [address] Jun, [facility] [address] [id number] [address] [place] [address], [place] [address] Jun, [facility] [address] [id number] [address] [place] [address], [place] [address] Jun, [facility] [address] [id number] [address] [place] [address], [place] [address] May, [facility] [address] [id number] [address] [place] [address] May, [facility] [address] [id number] [address] [place] [address], [place] [address] May, [facility] [address] [id number] [address] [place] [address], [place] [address] May, [facility] [address] [id number] [address] [place] [address] May, [facility] [address] [id number] [address] [place] [address] May, [facility] [address] [id number] [address] [place] [address], [place] [address] May, [facility] [address] [id number] [address] [place] [address] May, [facility] [address] [id number] [address] [place] [address], [place] [address] Apr, [facility] [address] [id number] [address] [place] [address], [place] [address] 30 Apr, 2012 [facility] [address] [id number] [address] [place] [address], [place] [address] 29 Apr, 2011 [facility] [address] [id number] [address] [place] [address], [place] [address] 16 Apr, 2012 [facility] [address] [id number] [address] [place] [address], [place] [address] 16 Apr, 2012 [facility] [address] [id number] [address] [place] [address], [place] [address] Apr, [facility] [address] [id number] [address] [place] [address], [place] [address] Apr, [facility] [address] [id number] [address] [place] [address], [place] [address] Apr, [facility] [address] [id number] [address] [place] [address], [place] [address] 09 Apr, 2012 [facility] [address] [id number] [address] [place] [address] 08 Apr, 2012 [facility] [address] [id number] [address] [place] [address], [place] [address] 04 Apr, 2012 [facility] [address] [id number] [address] [place] [address] 02 Apr, 2012 [facility] [address] [id number] [address] [place] [address], [place] [address] 19 Mar, 2011 [facility] [address] [id number] [address] [place] [address] 18 Sep, 2011 [facility] [address] [id number] [address] [place] [address] 12 Mar, 2012 [facility] [address] [id number] [address] [place] [address] 12 Mar, 2011 [facility] [address] [id number] [address] [place] [id number] Mar, [facility] [address] [id number] [address] [place] [address], [place] [id number] Mar, [facility] [address] [id number] [address] [place] [address], [place] [address] Mar, [facility] [address] [id number] [address] [place] [address], [place] [address] Jan, [facility] [address] [id number] [address] [place] [address], [place] [address] Jan, [facility] [address] [id number] [address] [place] [address], [place] [id number] Jan, [facility] [address] [id number] [address] [place] [address], [place] [id number] Jan, [facility] [address] [id number] [address] [place] [address], [place] [address] Jan, [facility] [address] [id number] [address] [place] [address], [place] [address] Jan, [facility] [address] [id number] [address] [place] [address], [place] [address] Jan, [facility] [address] [id number] [address] [place] [address], [place] [address] Jan, [facility] [address] [id number] [address] [place] [address], [place] [address] Jan, [facility] [address] [id number] [address] [place] [address], [place] [address] Jan, [facility] [address] [id number] [address] [place] [address], [place] [address] Jan, [facility] [address] [id number] [address] [place] [address], [place] [address] Dec, [facility] [address] [id number] [address] [place] [address], [place] [address] Dec, [facility] [address] [id number] [address] [place] [address], [place] [address] Jan, 2012 [facility] [address] [id number] [facility] [address] 26 Jan, 2012 [facility] [address] [id number] [address] [place] [address], [place] [address] 20 Jan, 2012 [facility] [address] [id number] [address] [place] [address], [place] [address] 19 Jan, 2012 [facility] [address] [id number] [address] [place] [address], [place] [address] 18 Jan, 2012 [facility] [address] [id number] [address] [place] [address], [place] [address] 17 Jan, 2012 [facility] [address] [id number] [address] [place] [address], [place] [address] 16 Jan, 2012 [facility] [address] [id number] [address] [place] [address], [place] [address] 13 Jan, 2012 [facility] [address] [id number] [address] [place] [address], [place] [address] 13 Jan, 2012 [facility] [address] [id number] [address] [place] [address], [place] [address] 02 Jan, 2012 [facility] [address] [id number] [address] [place] [address], [place] [address] 27 Dec, 2011 [facility] [address] [id number] [address] [place] [address], [place] [address] 27 Dec, 2011 [facility] [address] [id number] [address] [place] [address], [place] [address] 25 Dec, 2011 [facility] [address] [id number] [address] [place] [address], [place] [address] 18 Dec, 2011 [facility] [address] [id number] [address] [place] [address], [place] [address] 15 Dec, 2011 [facility] [address] [id number] [address] [place] [address], [place] [address] 06 Dec, 2011 [facility] [address] [id number] [address] [place] [address], [place] [address] Dec, [facility] [address] [id number] [address] [place] [address], [place] [address] October, [facility] [address] [id number] [address] [place] [address], [place] [address] October, [facility] [address] [id number] [address] [place] [address], [place] [address] October, [facility] [address] [id number] [address] [place] [address], [place] [address] October, [facility] [address] [id number] [address] [place] [address], [place] [address] October, [facility] [address] [id number] [address] [place] [address], [place] [address] October, [facility] [address] [id number] [address] [place] [address], [place] [address] Oct, [facility] [address] [id number] [address] [place] [address], [place] [address] Oct, [facility] [address] [id number] [address] [place] [address], [place] [address] Oct, [facility] [address] [id number] [address] [place] [address], [place] [address] Oct, [facility] [address] [id number] [address] [place] [address], [place] [address] Oct, [facility] [address] [id number] [address] [place] [address], [place] [address] Oct, [facility] [address] [id number] [address] [place] [address], [place] [address] Oct, [facility] [address] [id number] [address] [place] [address], [place] [address] Aug, [facility] [address] [id number] [address] [place] [address], [place] [address] Aug, [facility] [address] [id number] [address] [place] [address], [place] [address] 19 Sep, 2011 [facility] [address] [id number] [address] [place] [address], [place] [address] 13 Sep, 2011 [facility] [address] [id number] [address] [place] [address], [place] [address] 05 Sep, 2011 [facility] [address] [id number] [address] [place] [address], [place] [address] 05 Sep, 2011 [facility] [address] [id number] [address] [place] [address], [place] [address] 27 Aug, 2011 [facility] [address] [id number] [address] [place] [address], [place] [address] 20 Aug, 2011 [facility] [address] [id number] [address] [place] [address], [place] [address] 08 Aug, 2011 [facility] [address] [id number] [address] [place] [address], [place] [address] Jul, [facility] [address] [id number] [address] [place] [address], [place] [address] Jul, [facility] [address] [id number] [address] [place] [address], [place] [address] Jul, [facility] [address] [id number] [address] [place] [address], [place] [address] Jul, [facility] [address] [id number] [address] [place] [address], [place] [address] Jun, [facility] [address] [id number] [address] [place] [address], [place] [address] Jun, [facility] [address] [id number] [address] [place] [address], [place] [address] May, [facility] [address] [id number] [address] [place] [address], [place] [address] 29 May, 2011 [facility] [address] [id number] [address] [place] [address] May, [facility] [address] [id number] [address] [place] [address] May, [facility] [address] [id number] [address] [place] [address] May, [facility] [address] [id number] [address] [place] [address] Apr, [facility] [address] [id number] [address] [place] [address] Apr, [facility] [address] [id number] [address] [place] [address] Apr, [facility] [place] [address] [id number] [address] [place] [address] Jan, [facility] [address] [id number] [address] [place] [address] Dec, [facility] [place] [address] [id number] [address] [place] [address] October, [facility] [place] [address] [id number] [address] [place] [address] Jun, [facility] [place] [address] [id number] [address] [place] [address] Apr, [facility] [place] [address] [id number] [address] [place] [address] Apr, [facility] [place] [address] [id number] [address] [place] [address] Apr, [facility] [place] [address] [id number] [address] [place] [address] Jun, IMMUNIZATIONS No Known Immunizations SOCIAL HISTORY Never Assessed REASON FOR VISIT valium 03/16/2017 PLAN OF CARE VITAL SIGNS MEDICATIONS Medication [...]
--- OUTSIDE RECORDS SUMMARY | 2020-01-25 13:39 | XMS REPORT ---
Author Author Ana ESCAMILLA KWAME [facility] Address [address] [place] [address] Care Team Providers Care Foot Roentgenologist Name Role Phone Jackie ESCAMILLAYEN Unavailable PROBLEMS Type Condition ICD9-CM Code [id number] Code Onset Dates Condition S tatus SNOMED Code Problem Attention deficit R41.840 Active 76 213156 Problem Cannabis abuse F12.10 Active 36149 009 Problem Chronic hepatitis C without hepatic coma B18.2 Active 511073915 Problem Attention deficit hyperactivity disorder (ADHD), combi luciano type F90.2 Active 34821126 Problem Bipolar disorder, in partial remission, most rec ent episode hypomanic F31.71 Active 758593741 Problem H/O laminectomy Z98.89 Active 1616 75236 Problem Bipolar 1 disorder F31.9 Active 3 85232578 Problem Anxiety disorder, unspecified type F41.9 Active 762065158 Problem Other chronic pain G89.29 Active 8 1375640 ALLERGIES No Information ENCOUNTERS Encounter Location Date Diagnosis [facility] [address] [id number] [address] [place] [address] Dec, [facility] [address] [id number] [address] [place] [address] October, Bipolar disorder, in partial remission, most recent episode hypomanic F31.71 [facility] [address] [id number] [address] [place] [address] October, [facility] [address] [id number] [address] [place] [address] October, [facility] [address] [id number] [address] [place] [address] Oct, Bipolar disorder, in partial remission, most recent episode hypomanic F31.71 ; Attention deficit hyperactivity disorder (ADHD), combined type F90.2 ; Anxiety disorder, unspecified type F41.9 and Encounter for drug screening Z02.83 [facility] [address] [id number] [address] [place] [address] Oct, Bipolar disorder, in partial remission, most recent episode hypomanic F31.71 [facility] [address] [id number] [address] [place] [address] Oct, Bipolar disorder, in partial remission, most recent episode hypomanic F31.71 [facility] [address] [id number] [address] [place] [address] Aug, Bipolar disorder, in partial remission, most recent episode hypomanic F31.71 [facility] [address] [id number] [address] [place] [address] Aug, Bipolar disorder, in partial remission, most recent episode hypomanic F31.71 [facility] [address] [id number] [address] [place] [address] Aug, Bipolar disorder, in partial remission, most recent episode hypomanic F31.71 [facility] [address] [id number] [address] [place] [address] Jul, Bipolar disorder, in partial remission, most recent episode hypomanic F31.71 ; Attention deficit hyperactivity disorder (ADHD), combined type F90.2 and Anxiety disorder, unspecified type F41.9 [facility] [address] [id number] [address] [place] [address] Jul, Bipolar disorder, in partial remission, most recent episode hypomanic F31.71 [facility] [address] [id number] [address] [place] [address] Jun, Bipolar disorder, in partial remission, most recent episode hypomanic F31.71 [facility] [address] [id number] [address] [place] [address] May, Bipolar disorder, in partial remission, most recent episode hypomanic F31.71 [facility] [address] [id number] [address] [place] [address] May, Bipolar disorder, in partial remission, most recent episode hypomanic F31.71 [facility] [address] [id number] [address] [place] [address] Apr, [facility] [address] [id number] [address] [place] [address] Apr, Bipolar disorder, in partial remission, most recent episode hypomanic F31.71 ; Attention deficit hyperactivity disorder (ADHD), combined type F90.2 ; Anxiety disorder, unspecified type F41.9 and Cannabis abuse F12.10 [facility] [address] [id number] [address] [place] [address] Apr, Attention deficit hyperactiv ity disorder (ADHD), combined type F90.2 [facility] [address] [id number] [address] [place] [address] Mar, Attention deficit hyperactiv ity disorder (ADHD), combined type F90.2 [facility] [address] [id number] [address] [place] [address] Mar, Anxiety disorder, unspecifie d type F41.9 [facility] [address] [id number] [address] [place] [address] Jan, Attention deficit hyperactiv ity disorder (ADHD), combined type F90.2 [facility] [address] [id number] [address] [place] [address] Jan, Anxiety disorder, unspecifie d type F41.9 [facility] [address] [id number] [address] [place] [address] Jan, Other chronic pain G89.29 ; Chronic hepatitis C without hepatic coma B18.2 and Bipolar 1 disorder F31.9 [facility] [address] [id number] [address] [place] [address] Dec, Attention deficit hyperactiv ity disorder (ADHD), combined type F90.2 [facility] [address] [id number] [address] [place] [address] Dec, Bipolar disorder, in partial remission, most recent episode hypomanic F31.71 ; Attention deficit hyperactivity disorder (ADHD), combined type F90.2 and Anxiety disorder, unspecified type F41.9 [facility] [address] [id number] [address] [place] [address] Dec, Bipolar disorder, in partial remission, most recent episode hypomanic F31.71 ; Attention deficit hyperactivity disorder (ADHD), combined type F90.2 and Anxiety disorder, unspecified type F41.9 [facility] [address] [id number] [address] [place] [address] Dec, Bipolar 1 disorder F31.9 and Attention deficit R41.840 [facility] [address] [id number] [address] [place] [address] Oct, Other chronic pain G89.29 ; Alopecia L65.9 and Screening, lipid Z13.220 [facility] [address] [id number] [address] [place] [address] Oct, [facility] [address] [id number] [address] [place] [address] Aug, [facility] [address] [id number] [address] [place] [address] Aug, Eustachian tube dysfunction, right H69.81 ; Vertigo R42 and Other chronic pain G89.29 [facility] [address] [id number] [address] [place] [address] Aug, [facility] [address] [id number] [address] [place] [address] Jun, [facility] [address] [id number] [address] [place] [address] Jun, Low back pain M54.5 and Othe r chronic pain G89.29 [facility] [address] [id number] [address] [place] [address] Jun, [facility] [address] [id number] [address] [place] [address] May, [facility] [address] [id number] [address] [place] [address] Jan, [facility] [address] [id number] [address] [place] [address] Dec, [facility] [id number] [place] [address] Dec, [facility] [id number] [place] [address] Jun, [facility] [address] [address] Apr, Eustachian tube dysfunction, unspecified laterality H69.80 ; Hot flashes N95.1 and Encounter for immunization Z23 [facility] [address] [address] Jan, [facility] [address] [address] Jan, [facility] [address] [address] Jan, [facility] [id number] [place] [address] Jan, [facility] [address] [id number] [address] [place] [address] Jan, Encounter to establish care V65.8 ; Bipolar 1 disorder 296.7 ; Abdominal pain 789.00 ; Constipation 564.00 ; Hard of hearing 389.9 and Drug abuse 305.90 [facility] [address] [id number] [address] [place] [address] Dec, [facility] [address] [id number] [address] [place] [address] October, [facility] [id number] [place] [address] October, [facility] [address] [id number] [address] [place] [address], [place] [address] 30 Oct, 2014 [facility] [address] [id number] [address] [place] [address], [place] [address] 14 Oct, 2014 [facility] [address] [id number] [address] [place] [address], [place] [address] Oct, [facility] [address] [id number] [address] [place] [address] Aug, [facility] [address] [id number] [address] [place] [address], [place] [address] Aug, [facility] [address] [id number] [address] [place] [address] Aug, [facility] [address] [id number] [address] [place] [address], [place] [address] Aug, [facility] [address] [id number] [address] [place] [address] Aug, [facility] [address] [id number] [address] [place] [address], [place] [address] Aug, [facility] [address] [id number] [address] [place] [address] Aug, [facility] [address] [id number] [address] [place] [address], [place] [address] Aug, 2014 [facility] [address] [id number] [address] [place] [address] Aug, 2014 [facility] [address] [id number] [address] [place] [address] Aug, 2014 [facility] [address] [id number] [address] [place] [address] Aug, 2014 [facility] [address] [id number] [address] [place] [address] Aug, 2014 [facility] [address] [id number] [address] [place] [address], [place] [address] Aug, [facility] [address] [id number] [address] [place] [address], [place] [address] Aug, [facility] [address] [id number] [address] [place] [address], [place] [address] Aug, [facility] [address] [id number] [address] [place] [address], [place] [address] Jul, [facility] [address] [id number] [address] [place] [address], [place] [address] Jul, [facility] [address] [id number] [address] [place] [address], [place] [address] Jul, [facility] [address] [id number] [address] [place] [address], [place] [address] Jul, [facility] [address] [id number] [address] [place] [address], [place] [address] Jul, [facility] [address] [id number] [address] [place] [address], [place] [address] Jul, [facility] [address] [id number] [address] [place] [address], [place] [address] Jul, [facility] [address] [id number] [address] [place] [address], [place] [address] Jul, [facility] [address] [id number] [address] [place] [address], [place] [address] Jun, [facility] [address] [id number] [address] [place] [address], [place] [address] Jun, [facility] [address] [id number] [address] [place] [address], [place] [address] Jun, [facility] [address] [id number] [address] [place] [address], [place] [address] Jun, [facility] [address] [id number] [address] [place] [address] 18 Jun, 2014 [facility] [address] [id number] [address] [place] [address], [place] [address] 15 Jun, 2014 [facility] [address] [id number] [address] [place] [address], [place] [address] 15 Jun, 2014 [facility] [address] [id number] [address] [place] [address], [place] [address] Jun, [facility] [address] [id number] [address] [place] [address], [place] [address] Jun, [facility] [address] [id number] [address] [place] [address], [place] [address] Jun, [facility] [address] [id number] [address] [place] [address], [place] [address] Jun, [facility] [address] [id number] [address] [place] [address], [place] [address] May, [facility] [address] [id number] [address] [place] [address], [place] [address] May, [facility] [address] [id number] [address] [place] [address], [place] [address] May, [facility] [address] [id number] [address] [place] [address], [place] [address] May, [facility] [address] [id number] [address] [place] [address], [place] [address] May, [facility] [address] [id number] [address] [place] [address], [place] [address] May, [facility] [address] [id number] [address] [place] [address], [place] [address] May, [facility] [address] [id number] [address] [place] [address], [place] [address] Apr, [facility] [address] [id number] [address] [place] [address], [place] [address] Apr, [facility] [address] [id number] [facility] [place] [address] Apr, [facility] [address] [id number] [address] [place] [address], [place] [address] Apr, [facility] [address] [id number] [address] [place] [address], [place] [address] Apr, [facility] [address] [id number] [address] [place] [address], [place] [address] Apr, [facility] [address] [id number] [address] [place] [address], [place] [address] Mar, [facility] [address] [id number] [address] [place] [address], [place] [address] Mar, [facility] [address] [id number] [address] [place] [address], [place] [address] Mar, [facility] [address] [id number] [address] [place] [address], [place] [address] Mar, [facility] [address] [id number] [address] [place] [address], [place] [address] Mar, [facility] [address] [id number] [address] [place] [address], [place] [address] Mar, [facility] [address] [id number] [address] [place] [address], [place] [address] Jan, [facility] [address] [id number] [address] [place] [address], [place] [address] Jan, [facility] [address] [id number] [address] [place] [address], [place] [address] Jan, [facility] [address] [id number] [address] [place] [address], [place] [address] Jan, [facility] [address] [id number] [address] [place] [address], [place] [address] Dec, [facility] [address] [id number] [address] [place] [address], [place] [address] Dec, [facility] [address] [id number] [facility] [place] [address] Dec, [facility] [address] [id number] [address] [place] [address], [place] [address] Dec, [facility] [address] [id number] [address] [place] [address], [place] [address] Dec, [facility] [address] [id number] [address] [place] [address], [place] [address] Dec, [facility] [address] [id number] [address] [place] [address], [place] [address] Dec, [facility] [address] [id number] [address] [place] [address], [place] [address] Dec, [facility] [address] [id number] [address] [place] [address], [place] [address] Dec, [facility] [address] [id number] [address] [place] [address], [place] [address] Dec, [facility] [address] [id number] [address] [place] [address], [place] [address] Dec, [facility] [address] [id number] [address] [place] [address], [place] [address] Dec, [facility] [address] [id number] [address] [place] [address], [place] [address] October, [facility] [address] [id number] [address] [place] [address], [place] [address] October, [facility] [address] [id number] [address] [place] [address], [place] [address] October, [facility] [address] [id number] [address] [place] [address], [place] [address] October, [facility] [address] [id number] [address] [place] [address], [place] [address] October, [facility] [address] [id number] [address] [place] [address], [place] [address] October, [facility] [address] [id number] [address] [place] [address], [place] [address] Oct, [facility] [address] [id number] [address] [place] [address], [place] [address] Oct, [facility] [address] [id number] [address] [place] [address], [place] [address] Oct, [facility] [address] [id number] [address] [place] [address], [place] [address] Oct, [facility] [address] [id number] [address] [place] [address], [place] [address] Oct, [facility] [address] [id number] [address] [place] [address], [place] [address] Oct, [facility] [address] [id number] [address] [place] [address], [place] [address] Oct, [facility] [address] [id number] [address] [place] [address], [place] [address] Oct, [facility] [address] [id number] [address] [place] [address], [place] [address] Oct, [facility] [address] [id number] [address] [place] [address], [place] [address] Oct, [facility] [address] [id number] [address] [place] [address], [place] [address] Oct, [facility] [address] [id number] [address] [place] [address], [place] [address] Oct, [facility] [address] [id number] [address] [place] [address], [place] [address] Aug, [facility] [address] [id number] [address] [place] [address], [place] [address] Aug, [facility] [address] [id number] [address] [place] [address], [place] [address] Aug, [facility] [address] [id number] [facility] [place] [address] Aug, [facility] [address] [id number] [address] [place] [address], [place] [address] Aug, [facility] [address] [id number] [address] [place] [address], [place] [address] 05 Aug, 2013 [facility] [address] [id number] [address] [place] [address], [place] [address] Aug, [facility] [address] [id number] [address] [place] [address], [place] [address] Aug, [facility] [address] [id number] [address] [place] [address], [place] [address] Aug, [facility] [address] [id number] [address] [place] [address], [place] [address] 24 Aug, 2013 [facility] [place] [facility] [address] [id number] [address] [place] [address], [place] [address] 24 Aug, 2013 [facility] [address] [id number] [address] [place] [address], [place] [address] Aug, [facility] [place] [facility] [address] [id number] [address] [place] [address], [place] [address] Aug, [facility] [place] [facility] [address] [id number] [address] [place] [address], [place] [address] 20 Aug, 2013 [facility] [place] [facility] [address] [id number] [address] [place] [address], [place] [address] 14 Aug, 2013 [facility] [place] [facility] [address] [id number] [address] [place] [address], [place] [address] 14 Aug, 2013 [facility] [place] [facility] [address] [id number] [address] [place] [address], [place] [address] 14 Aug, 2013 [facility] [place] [facility] [address] [id number] [address] [place] [address], [place] [address] 14 Aug, 2013 [facility] [place] [facility] [address] [id number] [address] [place] [address] 07 Aug, 2013 [facility] [address] [id number] [address] [place] [address], [place] [address] 07 Aug, 2013 [facility] [place] [facility] [address] [id number] [address] [place] [address], [place] [address] 06 Aug, 2013 [facility] [address] [id number] [address] [place] [address], [place] [address] Aug, 2013 [facility] [place] [facility] [address] [id number] [address] [place] [address], [place] [address] Aug, [facility] [address] [id number] [address] [place] [address], [place] [address] Aug, [facility] [address] [id number] [address] [place] [address], [place] [address] Aug, [facility] [address] [id number] [address] [place] [address], [place] [address] Jul, [facility] [address] [id number] [address] [place] [address], [place] [address] Jul, [facility] [address] [id number] [address] [place] [address], [place] [address] Jul, [facility] [address] [id number] [address] [place] [address], [place] [address] Jul, [facility] [place] [facility] [address] [id number] [address] [place] [address], [place] [address] Jul, [facility] [address] [id number] [address] [place] [address], [place] [address] Jul, [facility] [place] [facility] [address] [id number] [address] [place] [address], [place] [address] Jul, [facility] [place] [facility] [address] [id number] [address] [place] [address], [place] [address] Jul, [facility] [place] [facility] [address] [id number] [address] [place] [address], [place] [address] Jul, [facility] [address] [id number] [address] [place] [address], [place] [address] Jul, [facility] [address] [id number] [address] [place] [address], [place] [address] Jul, [facility] [address] [id number] [address] [place] [address], [place] [address] Jul, [facility] [address] [id number] [address] [place] [address], [place] [address] Jul, [facility] [address] [id number] [address] [place] [address], [place] [address] Jul, [facility] [address] [id number] [address] [place] [address], [place] [address] Jul, [facility] [address] [id number] [address] [place] [address], [place] [address] Jul, [facility] [address] [id number] [address] [place] [address], [place] [address] Jul, [facility] [address] [id number] [address] [place] [address], [place] [address] Jul, [facility] [address] [id number] [address] [place] [address], [place] [address] Jul, [facility] [address] [id number] [address] [place] [address], [place] [address] Jul, [facility] [facility] [address] [id number] [address] [place] [address], [place] [address] Jun, [facility] [address] [id number] [address] [place] [address], [place] [address] Jun, [facility] [address] [id number] [address] [place] [address], [place] [address] Jun, [facility] [address] [id number] [address] [place] [address], [place] [address] Jun, [facility] [address] [id number] [address] [place] [address], [place] [address] 27 Jun, 2013 [facility] [address] [id number] [address] [place] [address], [place] [address] Jun, [facility] [address] [id number] [address] [place] [address], [place] [address] Jun, [facility] [address] [id number] [address] [place] [address], [place] [address] Jun, [facility] [address] [id number] [address] [place] [address], [place] [address] Jun, [facility] [address] [id number] [address] [place] [address], [place] [address] Jun, [facility] [address] [id number] [address] [place] [address], [place] [address] Jun, [facility] [address] [id number] [address] [place] [address], [place] [address] Jun, [facility] [address] [id number] [address] [place] [address], [place] [address] Jun, [facility] [address] [id number] [address] [place] [address], [place] [address] Jun, [facility] [address] [id number] [address] [place] [address], [place] [address] Jun, [facility] [address] [id number] [address] [place] [address], [place] [address] 18 Jun, 2013 [facility] [address] [id number] [address] [place] [address], [place] [address] 18 Jun, 2013 [facility] [address] [id number] [address] [place] [address], [place] [address] 17 Jun, 2013 [facility] [address] [id number] [address] [place] [address], [place] [address] 17 Jun, 2013 [facility] [address] [id number] [address] [place] [address], [place] [address] 13 Jun, 2013 [facility] [address] [id number] [address] [place] [address], [place] [address] Jun, [facility] [address] [id number] [address] [place] [address], [place] [address] Jun, [facility] [address] [id number] [address] [place] [address], [place] [address] Jun, [facility] [address] [id number] [address] [place] [address], [place] [address] Jun, [facility] [address] [id number] [address] [place] [address], [place] [address] Jun, [facility] [address] [id number] [address] [place] [address], [place] [address] Jun, [facility] [address] [id number] [address] [place] [address], [place] [address] Jun, [facility] [address] [id number] [address] [place] [address], [place] [address] May, [facility] [address] [id number] [address] [place] [address], [place] [address] May, [facility] [address] [id number] [address] [place] [address], [place] [address] May, [facility] [address] [id number] [address] [place] [address], [place] [address] May, [facility] [address] [id number] [address] [place] [address], [place] [address] May, [facility] [address] [id number] [address] [place] [address], [place] [address] May, [facility] [address] [id number] [address] [place] [address], [place] [address] Apr, [facility] [address] [id number] [address] [place] [address], [place] [address] Apr, [facility] [address] [id number] [address] [place] [address], [place] [address] 30 Apr, 2013 [facility] [address] [id number] [address] [place] [address], [place] [address] 30 Apr, 2013 [facility] [address] [id number] [address] [place] [address], [place] [address] Apr, [facility] [address] [id number] [address] [place] [address], [place] [address] 15 Apr, 2013 [facility] [address] [id number] [address] [place] [address], [place] [address] 15 Apr, 2013 [facility] [address] [id number] [address] [place] [address], [place] [address] Apr, [facility] [address] [id number] [address] [place] [address], [place] [address] 26 Mar, 2013 [facility] [address] [id number] [address] [place] [address], [place] [address] 24 Mar, 2013 [facility] [address] [id number] [address] [place] [address], [place] [address] 17 Mar, 2013 [facility] [address] [id number] [address] [place] [address], [place] [address] 17 Mar, 2013 [facility] [address] [id number] [address] [place] [address], [place] [address] 11 Mar, 2013 [facility] [address] [id number] [address] [place] [address], [place] [address] 10 Mar, 2013 [facility] [address] [id number] [address] [place] [address], [place] [address] 05 Mar, 2012 [facility] [address] [id number] [address] [place] [address], [place] [address] 04 Mar, 2013 [facility] [address] [id number] [address] [place] [address], [place] [address] 20 Jan, 2013 [facility] [address] [id number] [address] [place] [address], [place] [address] Jan, [facility] [address] [id number] [address] [place] [address], [place] [address] 14 Jan, 2013 [facility] [address] [id number] [address] [place] [address], [place] [address] 12 Jan, 2013 [facility] [address] [id number] [address] [place] [address], [place] [address] Jan, [facility] [address] [id number] [address] [place] [address], [place] [address] 05 Jan, 2013 [facility] [address] [id number] [address] [place] [address], [place] [address] Dec, [facility] [address] [id number] [address] [place] [address], [place] [address] 24 Dec, 2012 [facility] [address] [id number] [address] [place] [address], [place] [address] Dec, [facility] [address] [id number] [address] [place] [address], [place] [address] Dec, [facility] [address] [id number] [address] [place] [address], [place] [address] 18 Dec, 2012 [facility] [address] [id number] [address] [place] [address], [place] [address] 17 Dec, 2012 [facility] [address] [id number] [address] [place] [address], [place] [address] 16 Dec, 2012 [facility] [address] [id number] [address] [place] [address], [place] [address] 16 Dec, 2012 [facility] [address] [id number] [address] [place] [address], [place] [address] 15 Dec, 2012 [facility] [address] [id number] [address] [place] [address], [place] [address] Dec, [facility] [address] [id number] [address] [place] [address], [place] [address] Dec, [facility] [address] [id number] [address] [place] [address], [place] [address] Dec, [facility] [address] [id number] [address] [place] [address], [place] [address] Dec, [facility] [address] [id number] [address] [place] [address], [place] [address] Dec, [facility] [address] [id number] [address] [place] [address], [place] [address] Dec, [facility] [address] [id number] [address] [place] [address], [place] [address] Dec, [facility] [address] [id number] [address] [place] [address], [place] [address] October, [facility] [address] [id number] [address] [place] [address], [place] [address] October, [facility] [address] [id number] [address] [place] [address], [place] [address] October, [facility] [address] [id number] [address] [place] [address], [place] [address] October, [facility] [address] [id number] [address] [place] [address], [place] [address] October, [facility] [address] [id number] [address] [place] [address], [place] [address] October, [facility] [address] [id number] [address] [place] [address], [place] [address] October, [facility] [address] [id number] [address] [place] [address], [place] [address] Oct, [facility] [address] [id number] [address] [place] [address], [place] [address] Oct, [facility] [address] [id number] [address] [place] [address], [place] [address] Oct, [facility] [address] [id number] [address] [place] [address], [place] [address] Oct, [facility] [address] [id number] [address] [place] [address], [place] [address] 19 Oct, 2012 [facility] [address] [id number] [address] [place] [address], [place] [address] 18 Oct, 2012 [facility] [address] [id number] [address] [place] [address], [place] [address] 17 Oct, 2012 [facility] [address] [id number] [address] [place] [address], [place] [address] 15 Oct, 2012 [facility] [address] [id number] [address] [place] [address], [place] [address] 12 Oct, 2012 [facility] [address] [id number] [address] [place] [address], [place] [address] Oct, [facility] [address] [id number] [address] [place] [address], [place] [address] Oct, [facility] [address] [id number] [address] [place] [address], [place] [address] Oct, [facility] [address] [id number] [address] [place] [address], [place] [address] Aug, [facility] [address] [id number] [address] [place] [address], [place] [address] Aug, [facility] [address] [id number] [address] [place] [address], [place] [address] Aug, [facility] [address] [id number] [address] [place] [address], [place] [address] Aug, [facility] [address] [id number] [address] [place] [address], [place] [address] Aug, [facility] [address] [id number] [address] [place] [address], [place] [address] 05 Aug, 2012 [facility] [address] [id number] [address] [place] [address], [place] [address] 20 Aug, 2012 [facility] [address] [id number] [address] [place] [address], [place] [address] 14 Aug, 2012 [facility] [address] [id number] [address] [place] [address], [place] [address] 12 Aug, 2012 [facility] [address] [id number] [address] [place] [address], [place] [address] Aug, [facility] [address] [id number] [address] [place] [address], [place] [address] 29 Jul, 2012 [facility] [address] [id number] [address] [place] [address], [place] [address] 15 Jul, 2012 [facility] [address] [id number] [address] [place] [address], [place] [address] 08 Jul, 2012 [facility] [address] [id number] [address] [place] [address], [place] [address] 20 Jun, 2012 [facility] [address] [id number] [address] [place] [address], [place] [address] 18 Jun, 2012 [facility] [address] [id number] [address] [place] [address], [place] [address] 18 Jun, 2012 [facility] [address] [id number] [address] [place] [address], [place] [address] 18 Jun, 2012 [facility] [address] [id number] [address] [place] [address], [place] [address] 18 Jun, 2012 [facility] [address] [id number] [address] [place] [address], [place] [address] 14 Jun, 2012 [facility] [address] [id number] [address] [place] [address], [place] [address] 14 Jun, 2012 [facility] [address] [id number] [address] [place] [address], [place] [address] 13 Jun, 2012 [facility] [address] [id number] [address] [place] [address], [place] [address] 13 Jun, 2012 [facility] [address] [id number] [address] [place] [address], [place] [address] 11 Jun, 2012 [facility] [address] [id number] [address] [place] [address], [place] [address] Jun, [facility] [address] [id number] [address] [place] [address], [place] [address] Jun, [facility] [address] [id number] [address] [place] [address], [place] [address] Jun, [facility] [address] [id number] [address] [place] [address], [place] [address] Jun, [facility] [address] [id number] [address] [place] [address], [place] [address] Jun, [facility] [address] [id number] [address] [place] [address], [place] [address] Jun, [facility] [address] [id number] [address] [place] [address], [place] [address] Jun, [facility] [address] [id number] [address] [place] [address], [place] [address] Jun, [facility] [address] [id number] [address] [place] [address], [place] [address] Jun, [facility] [address] [id number] [address] [place] [address], [place] [address] Jun, [facility] [address] [id number] [address] [place] [address], [place] [address] Jun, [facility] [address] [id number] [address] [place] [address], [place] [address] Jun, [facility] [address] [id number] [address] [place] [address], [place] [address] Jun, [facility] [address] [id number] [address] [place] [address], [place] [address] May, [facility] [address] [id number] [address] [place] [address], [place] [address] May, [facility] [address] [id number] [address] [place] [address], [place] [address] May, [facility] [address] [id number] [address] [place] [address], [place] [address] 08 May, 2012 [facility] [address] [id number] [address] [place] [address], [place] [address] May, [facility] [address] [id number] [address] [place] [address], [place] [address] May, [facility] [address] [id number] [address] [place] [address], [place] [address] May, [facility] [address] [id number] [address] [place] [address], [place] [address] May, [facility] [address] [id number] [address] [place] [address], [place] [address] Apr, [facility] [address] [id number] [address] [place] [address], [place] [address] Apr, [facility] [address] [id number] [address] [place] [address], [place] [address] Apr, [facility] [address] [id number] [address] [place] [address], [place] [address] Apr, [facility] [address] [id number] [address] [place] [address], [place] [address] Apr, [facility] [address] [id number] [address] [place] [address], [place] [address] Apr, [facility] [address] [id number] [address] [place] [address], [place] [address] Apr, [facility] [address] [id number] [address] [place] [address], [place] [address] Apr, [facility] [address] [id number] [address] [place] [address], [place] [address] Apr, [facility] [address] [id number] [address] [place] [address], [place] [address] Apr, [facility] [address] [id number] [address] [place] [address], [place] [address] Apr, [facility] [address] [id number] [address] [place] [address], [place] [address] Apr, [facility] [address] [id number] [address] [place] [address], [place] [address] 19 Mar, 2012 [facility] [address] [id number] [address] [place] [address], [place] [address] 18 Mar, 2012 [facility] [address] [id number] [address] [place] [address], [place] [address] Mar, [facility] [address] [id number] [address] [place] [address], [place] [address] Mar, [facility] [address] [id number] [address] [place] [id number] Mar, [facility] [address] [id number] [address] [place] [id number] Mar, [facility] [address] [id number] [address] [place] [address] Mar, [facility] [address] [id number] [address] [place] [address], [place] [address] Jan, [facility] [address] [id number] [address] [place] [address] Jan, [facility] [address] [id number] [address] [place] [id number] Jan, [facility] [address] [id number] [address] [place] [id number] Jan, [facility] [address] [id number] [address] [place] [address], [place] [address] Jan, [facility] [address] [id number] [address] [place] [address], [place] [address] Jan, [facility] [address] [id number] [address] [place] [id number] Jan, [facility] [address] [id number] [address] [place] [id number] Jan, [facility] [address] [id number] [address] [place] [address], [place] [address] Jan, [facility] [address] [id number] [address] [place] [address], [place] [address] Jan, [facility] [address] [id number] [address] [place] [address], [place] [address] Jan, [facility] [address] [id number] [address] [place] [address], [place] [address] Dec, [facility] [address] [id number] [address] [place] [address], [place] [address] Dec, [facility] [address] [id number] [address] [place] [address], [place] [address] Dec, [facility] [address] [id number] [address] [place] [address], [place] [address] Dec, [facility] [address] [id number] [address] [place] [address], [place] [address] Dec, [facility] [address] [id number] [address] [place] [address], [place] [address] Dec, [facility] [address] [id number] [address] [place] [address], [place] [address] Dec, [facility] [address] [id number] [address] [place] [address], [place] [address] 17 Jan, 2012 [facility] [address] [id number] [address] [place] [address], [place] [address] 16 Jan, 2012 [facility] [address] [id number] [address] [place] [address], [place] [address] Dec, [facility] [address] [id number] [address] [place] [address], [place] [address] Dec, [facility] [address] [id number] [address] [place] [address], [place] [address] Dec, [facility] [address] [id number] [address] [place] [address], [place] [address] 27 Dec, 2011 [facility] [address] [id number] [address] [place] [address], [place] [address] 27 Dec, 2011 [facility] [address] [id number] [address] [place] [address], [place] [address] 25 Dec, 2011 [facility] [address] [id number] [address] [place] [address], [place] [address] 18 Dec, 2011 [facility] [address] [id number] [address] [place] [address], [place] [address] 15 Dec, 2011 [facility] [address] [id number] [address] [place] [address], [place] [address] 06 Dec, 2011 [facility] [address] [id number] [address] [place] [address], [place] [address] 05 Dec, 2011 [facility] [address] [id number] [address] [place] [address], [place] [address] October, [facility] [address] [id number] [address] [place] [address], [place] [address] October, [facility] [address] [id number] [address] [place] [address], [place] [address] October, [facility] [address] [id number] [address] [place] [address], [place] [address] October, [facility] [address] [id number] [address] [place] [address], [place] [address] October, [facility] [address] [id number] [address] [place] [address], [place] [address] October, [facility] [address] [id number] [address] [place] [address], [place] [address] Oct, [facility] [address] [id number] [address] [place] [address], [place] [address] Oct, [facility] [address] [id number] [address] [place] [address], [place] [address] Oct, [facility] [address] [id number] [facility] [place] [address] Oct, [facility] [address] [id number] [address] [place] [address], [place] [address] Oct, [facility] [address] [id number] [address] [place] [address], [place] [address] Oct, [facility] [address] [id number] [address] [place] [address], [place] [address] Oct, [facility] [address] [id number] [address] [place] [address], [place] [id number] Aug, [facility] [address] [id number] [address] [place] [address], [place] [address] 29 Sep, 2011 [facility] [address] [id number] [address] [place] [address], [place] [address] Aug, [facility] [address] [id number] [address] [place] [address], [place] [address] Aug, [facility] [address] [id number] [address] [place] [address], [place] [address] Aug, [facility] [address] [id number] [address] [place] [address], [place] [address] Aug, [facility] [address] [id number] [address] [place] [address], [place] [address] Aug, [facility] [address] [id number] [address] [place] [address], [place] [address] Aug, [facility] [address] [id number] [address] [place] [address], [place] [address] Aug, [facility] [address] [id number] [address] [place] [address], [place] [address] Jul, [facility] [address] [id number] [address] [place] [address], [place] [address] Jul, [facility] [address] [id number] [address] [place] [address], [place] [address] Jul, [facility] [address] [id number] [address] [place] [address], [place] [address] Jul, [facility] [address] [id number] [address] [place] [address], [place] [address] Jun, [facility] [address] [id number] [address] [place] [address], [place] [address] Jun, [facility] [address] [id number] [address] [place] [address], [place] [address] May, [facility] [address] [id number] [address] [place] [address], [place] [address] May, [facility] [address] [id number] [address] [place] [address], [place] [address] May, [facility] [address] [id number] [address] [place] [address], [place] [address] May, [facility] [address] [id number] [address] [place] [address], [place] [address] May, [facility] [address] [id number] [address] [place] [address], [place] [address] Apr, [facility] [address] [id number] [address] [place] [address], [place] [address] Apr, [facility] [address] [id number] [address] [place] [address], [place] [address] Apr, [facility] [address] [id number] [address] [place] [address], [place] [address] 15 Jan, 2011 [facility] [address] [id number] [address] [place] [address], [place] [address] Dec, [facility] [address] [id number] [address] [place] [address], [place] [address] October, [facility] [address] [id number] [address] [place] [address], [place] [address] Jun, [facility] [address] [id number] [address] [place] [address] Apr, [facility] [address] [id number] [address] [place] [address] Apr, [facility] [address] [id number] [address] [place] [address] Apr, [facility] [address] [id number] [address] [place] [address] Jun, IMMUNIZATIONS No Known Immunizations SOCIAL HISTORY Never Assessed REASON FOR VISIT adderall 07/12/2017 PLAN OF CARE VITAL SIGNS MEDICATIONS Medication Instructions Dosage Frequency Start Date End Date Duration S wilyus Adderall 10 mg Orally 3 times a day 1 tablet 8h Jul, 28 days Active RESULTS No Results PROCEDURES No Known procedures INSTRUCTIONS MEDICATIONS ADMINISTERED No Known Medications MEDICAL (GENERAL) HISTORY Type Description Date Medical History Psychiatric disorder Medical History Hard of hearing Surgical History Neofibrous tumor Surgical History back injection Hospitalization History Intestinal blockage Hospitalization History past psychiatric hospitalizations x2
--- OUTSIDE RECORDS SUMMARY | 2020-01-25 13:40 | XMS REPORT ---
Author Author Ana ESCAMILLA KWAME [facility] Address [address] [place] [address] Care Team Providers Care Clerical Administrator Name Role Phone Jcakie ESCAMILLAYEN Unavailable PROBLEMS Type Condition ICD9-CM Code XMV11-DP Code Onset Dates Condition S tatus SNOMED Code Problem Attention deficit R41.840 Active 76 031251 Problem Cannabis abuse F12.10 Active 70032 009 Problem Chronic hepatitis C without hepatic coma B18.2 Active 932670037 Problem Attention deficit hyperactivity disorder (ADHD), combi luciano type F90.2 Active 04312071 Problem Bipolar disorder, in partial remission, most rec ent episode hypomanic F31.71 Active 413469700 Problem H/O laminectomy Z98.89 Active 1616 11392 Problem Bipolar 1 disorder F31.9 Active 3 91323138 Problem Anxiety disorder, unspecified type F41.9 Active 748337897 Problem Other chronic pain G89.29 Active 8 [id number] ALLERGIES No Information ENCOUNTERS Encounter Location Date Diagnosis [facility] [address] [facility] [id number] [address] [place] [address] Dec, [facility] [address] [place] [id number] [address] [place] [address] Oct, Bipolar disorder, in partial remission, most recent episode hypomanic F31.71 ; Attention deficit hyperactivity disorder (ADHD), combined type F90.2 ; Anxiety disorder, unspecified type F41.9 and Encounter for drug screening Z02.83 [facility] [address] [facility] [id number] [address] [place] [address] Oct, Bipolar disorder, in partial remission, most recent episode hypomanic F31.71 [facility] [address] [facility] [id number] [address] [place] [address] Oct, Bipolar disorder, in partial remission, most recent episode hypomanic F31.71 [facility] [address] [id number] [address] [place] [address] Aug, Bipolar disorder, in partial remission, most recent episode hypomanic F31.71 [facility] [address] [facility] [id number] [address] [place] [address] Aug, Bipolar disorder, in partial remission, most recent episode hypomanic F31.71 [facility] [address] [facility] [id number] [address] [place] [address] Aug, Bipolar disorder, in partial remission, most recent episode hypomanic F31.71 [facility] [address] [id number] [address] [place] [address] Jul, Bipolar disorder, in partial remission, most recent episode hypomanic F31.71 ; Attention deficit hyperactivity disorder (ADHD), combined type F90.2 and Anxiety disorder, unspecified type F41.9 [facility] [address] [facility] [id number] [address] [place] [address] Jul, Bipolar disorder, in partial remission, most recent episode hypomanic F31.71 [facility] [address] [facility] [id number] [address] [place] [address] Jun, Bipolar disorder, in partial remission, most recent episode hypomanic F31.71 [facility] [address] [facility] [id number] [address] [place] [address] May, Bipolar disorder, in partial remission, most recent episode hypomanic F31.71 [facility] [address] [facility] [id number] [address] [place] [address] May, Bipolar disorder, in partial remission, most recent episode hypomanic F31.71 [facility] [address] [facility] [id number] [address] [place] [address] Apr, [facility] [address] [facility] [id number] [address] [place] [address] Apr, Bipolar disorder, in partial remission, most recent episode hypomanic F31.71 ; Attention deficit hyperactivity disorder (ADHD), combined type F90.2 ; Anxiety disorder, unspecified type F41.9 [address] F12.10 [facility] [address] [id number] [address] [place] [address] Apr, Attention deficit hyperactiv ity disorder (ADHD), combined type F90.2 [facility] [address] [id number] [address] [place] [address], [place] [address] Mar, Attention deficit hyperactiv ity disorder (ADHD), combined type F90.2 [facility] [address] [id number] [address] [place] [address], [place] [address] 14 Mar, 2017 Anxiety disorder, unspecifie d type F41.9 [facility] [address] [id number] [address] [place] [address], [place] [address] Jan, Attention deficit hyperactiv ity disorder (ADHD), combined type F90.2 [facility] [address] [id number] [address] [place] [address] Jan, Anxiety disorder, unspecifie d type F41.9 [facility] [address] [id number] [address] [place] [address], [place] [address] Jan, Other chronic pain G89.29 ; Chronic hepatitis C without hepatic coma B18.2 and Bipolar [address] [facility] [address] [id number] [address] [place] [address], [place] [address] Dec, Attention deficit hyperactiv ity disorder (ADHD), combined type F90.2 [facility] [address] [id number] [address] [place] [address], [place] [address] Dec, Bipolar disorder, in partial remission, most recent episode hypomanic F31.71 ; Attention deficit hyperactivity disorder (ADHD), combined type F90.2 and Anxiety disorder, unspecified type F41.9 [facility] [address] [id number] [address] [place] [address], [place] [address] Dec, Bipolar disorder, in partial remission, most recent episode hypomanic F31.71 ; Attention deficit hyperactivity disorder (ADHD), combined type F90.2 and Anxiety disorder, unspecified type F41.9 [facility] [address] [id number] [address] [place] [address] Dec, Bipolar 1 disorder F31.9 and Attention deficit R41.840 [facility] [address] [facility] [id number] [address] [place] [address] Oct, Other chronic pain G89.29 ; Alopecia L65.9 and Screening, lipid Z13.220 [facility] [address] [place] [id number] [address] [place] [address] Oct, [facility] [address] [place] [id number] [address] [place] [address] Aug, [facility] [address] [place] [id number] [address] [place] [address] Aug, Eustachian tube dysfunction, right H69.81 ; Vertigo R42 and Other chronic pain G89.29 [facility] [address] [place] [id number] [address] [place] [address] Aug, [facility] [address] [place] [id number] [address] [place] [address] Jun, [facility] [address] [place] [id number] [address] [place] [address] Jun, Low back pain M54.5 and Othe r chronic pain G89.29 [facility] [address] [facility] [id number] [address] [place] [address] Jun, [facility] [address] [place] [id number] [address] [place] [address] May, [facility] [address] [place] [id number] [address] [place] [address] Jan, [facility] [address] [facility] [id number] [address] [place] [address] Dec, [facility] [address] [place] [id number] [address] [place] [address] Dec, [facility] [address] [facility] [id number] [address] [place] [address] Jun, [facility] [address] [place] [id number] [address] [place] [address] Apr, Eustachian tube dysfunction, unspecified laterality H69.80 ; Hot flashes N95.1 and Encounter for immunization Z23 [facility] [address] [facility] [id number] [address] [place] [address] Jan, [facility] [address] [facility] [id number] [address] [place] [address] Jan, [facility] [address] [place] [id number] [place] [address] Jan, [facility] [address] [place] [id number] [place] [address] Jan, [facility] [address] [address] Jan, Encounter to establish care V65.8 ; Bipolar 1 disorder 296.7 ; Abdominal pain 789.00 ; Constipation 564.00 ; Hard of hearing 389.[address] [facility] [address] [place] [id number] [address] [place] [address] Dec, [facility] [address] [place] [id number] [address] [place] [address] October, [facility] [address] [place] [id number] [address] [place] [address] October, [facility] [address] [place] [id number] [address] [place] [address] Oct, [facility] [address] [place] [id number] [address] [place] [address] Oct, [facility] [address] [place] [place] [id number] [address] [place] [address] Oct, [facility] [address] [id number] [facility] [place] [address] Aug, 2014 [facility] [address] [id number] [address] [place] [address], [place] [address] Aug, 2014 [facility] [address] [id number] [address] [place] [address], [place] [address] Aug, 2014 [facility] [address] [id number] [address] [place] [address], [place] [address] Aug, 2014 [facility] [address] [id number] [address] [place] [address], [place] [address] Aug, 2014 [facility] [address] [id number] [address] [place] [address], [place] [address] Aug, 2014 [facility] [address] [id number] [address] [place] [address], [place] [address] Aug, 2014 [facility] [address] [id number] [address] [place] [address] Aug, 2014 [facility] [address] [id number] [address] [place] [address], [place] [address] Aug, 2014 [facility] [address] [id number] [address] [place] [address], [place] [address] Aug, 2014 [facility] [address] [id number] [address] [place] [address], [place] [address] Aug, 2014 [facility] [address] [id number] [address] [place] [address] Aug, 2014 [facility] [address] [id number] [address] [place] [address], [place] [address] Aug, 2014 [facility] [address] [id number] [address] [place] [address], [place] [address] Aug, 2014 [facility] [address] [id number] [address] [place] [address], [place] [address] Aug, 2014 [facility] [address] [id number] [address] [place] [address], [place] [address] Jul, [facility] [address] [id number] [address] [place] [address], [place] [address] Jul, [facility] [address] [id number] [address] [place] [address], [place] [address] Jul, [facility] [address] [id number] [address] [place] [address], [place] [address] Jul, [facility] [address] [id number] [address] [place] [address], [place] [address] Jul, [facility] [address] [id number] [address] [place] [address], [place] [address] Jul, [facility] [address] [id number] [address] [place] [address], [place] [address] Jul, [facility] [address] [id number] [address] [place] [address], [place] [address] Jul, [facility] [address] [id number] [address] [place] [address], [place] [address] Jun, [facility] [address] [id number] [address] [place] [address], [place] [address] Jun, [facility] [address] [id number] [address] [place] [address], [place] [address] Jun, [facility] [address] [id number] [address] [place] [address], [place] [address] 29 Jun, 2014 [facility] [address] [id number] [address] [place] [address], [place] [address] 18 Jun, 2014 [facility] [address] [id number] [address] [place] [address], [place] [address] 15 Jun, 2014 [facility] [address] [id number] [address] [place] [address], [place] [address] 15 Jun, 2014 [facility] [address] [id number] [address] [place] [address], [place] [address] Jun, [facility] [address] [id number] [address] [place] [address], [place] [address] Jun, [facility] [address] [id number] [address] [place] [address], [place] [address] Jun, [facility] [address] [id number] [address] [place] [address], [place] [address] Jun, [facility] [address] [id number] [address] [place] [address], [place] [address] May, [facility] [address] [id number] [address] [place] [address], [place] [address] May, [facility] [address] [id number] [address] [place] [address], [place] [address] May, [facility] [address] [id number] [address] [place] [address], [place] [address] May, [facility] [address] [id number] [address] [place] [address], [place] [address] May, [facility] [address] [id number] [address] [place] [address], [place] [address] May, [facility] [address] [id number] [address] [place] [address], [place] [address] May, [facility] [address] [id number] [address] [place] [address], [place] [address] Apr, [facility] [address] [id number] [address] [place] [address], [place] [address] Apr, [facility] [address] [id number] [address] [place] [address], [place] [address] Apr, [facility] [address] [id number] [address] [place] [address], [place] [address] Apr, [facility] [address] [id number] [address] [place] [address], [place] [address] Apr, [facility] [address] [id number] [address] [place] [address], [place] [address] Apr, [facility] [address] [id number] [address] [place] [address], [place] [address] Mar, [facility] [address] [id number] [address] [place] [address], [place] [address] Mar, [facility] [address] [id number] [address] [place] [address], [place] [address] Mar, [facility] [address] [id number] [address] [place] [address], [place] [address] Mar, [facility] [address] [id number] [address] [place] [address], [place] [address] Mar, [facility] [address] [id number] [address] [place] [address], [place] [address] Mar, [facility] [address] [id number] [address] [place] [address], [place] [address] Jan, [facility] [address] [id number] [address] [place] [address], [place] [address] Jan, [facility] [address] [id number] [address] [place] [address], [place] [address] Jan, [facility] [address] [id number] [address] [place] [address], [place] [address] Jan, [facility] [address] [id number] [address] [place] [address], [place] [address] Dec, [facility] [address] [id number] [address] [place] [address], [place] [address] Dec, [facility] [address] [id number] [address] [place] [address], [place] [address] Dec, [facility] [address] [id number] [address] [place] [address], [place] [address] Dec, [facility] [address] [id number] [address] [place] [address], [place] [address] Dec, [facility] [address] [id number] [address] [place] [address], [place] [address] Dec, [facility] [address] [id number] [address] [place] [address], [place] [address] Dec, [facility] [address] [id number] [address] [place] [address], [place] [address] Dec, [facility] [address] [id number] [address] [place] [address], [place] [address] Dec, [facility] [address] [id number] [address] [place] [address], [place] [address] Dec, [facility] [address] [id number] [address] [place] [address], [place] [address] Dec, [facility] [address] [id number] [address] [place] [address], [place] [address] Dec, [facility] [address] [id number] [address] [place] [address], [place] [address] October, [facility] [address] [id number] [address] [place] [address], [place] [address] October, [facility] [address] [id number] [address] [place] [address], [place] [address] October, [facility] [address] [id number] [address] [place] [address], [place] [address] October, [facility] [address] [id number] [address] [place] [address], [place] [address] October, [facility] [address] [id number] [address] [place] [address], [place] [address] October, [facility] [address] [id number] [address] [place] [address], [place] [address] Oct, [facility] [address] [id number] [address] [place] [address], [place] [address] Oct, [facility] [address] [id number] [address] [place] [address], [place] [address] Oct, [facility] [address] [id number] [facility] [place] [address] Oct, [facility] [address] [id number] [address] [place] [address], [place] [address] Oct, [facility] [address] [id number] [address] [place] [address], [place] [address] Oct, [facility] [address] [id number] [address] [place] [address], [place] [address] Oct, [facility] [address] [id number] [address] [place] [address], [place] [address] Oct, [facility] [address] [id number] [address] [place] [address], [place] [address] Oct, [facility] [address] [id number] [address] [place] [address], [place] [address] Oct, [facility] [address] [id number] [address] [place] [address], [place] [address] Oct, [facility] [address] [id number] [address] [place] [address], [place] [address] Oct, [facility] [address] [id number] [address] [place] [address], [place] [address] Aug, [facility] [address] [id number] [address] [place] [address], [place] [address] Aug, [facility] [address] [id number] [address] [place] [address], [place] [address] Aug, [facility] [address] [id number] [address] [place] [address], [place] [address] Aug, [facility] [address] [id number] [address] [place] [address], [place] [address] Aug, [facility] [address] [id number] [address] [place] [address], [place] [address] Aug, [facility] [address] [id number] [address] [place] [address], [place] [address] 04 Aug, 2013 [facility] [address] [id number] [address] [place] [address], [place] [address] Aug, [facility] [address] [id number] [address] [place] [address], [place] [address] Aug, [facility] [address] [id number] [address] [place] [address], [place] [address] 24 Aug, 2013 [facility] [address] [id number] [address] [place] [address], [place] [address] 24 Aug, 2013 [facility] [address] [id number] [address] [place] [address], [place] [address] Aug, [facility] [address] [id number] [address] [place] [address], [place] [address] Aug, [facility] [address] [id number] [address] [place] [address], [place] [address] 20 Aug, 2013 [facility] [address] [id number] [address] [place] [address], [place] [address] 14 Aug, 2013 [facility] [address] [id number] [address] [place] [address], [place] [address] 14 Aug, 2013 [facility] [address] [id number] [address] [place] [address], [place] [address] 14 Aug, 2013 [facility] [address] [id number] [address] [place] [address], [place] [address] 14 Aug, 2013 [facility] [address] [id number] [address] [place] [address], [place] [address] 07 Aug, 2013 [facility] [address] [id number] [address] [place] [address], [place] [address] 07 Aug, 2013 [facility] [address] [id number] [address] [place] [address], [place] [address] 06 Aug, 2013 [facility] [address] [id number] [address] [place] [address], [place] [address] Aug, [facility] [address] [id number] [facility] [place] [address] Aug, [facility] [address] [id number] [address] [place] [address], [place] [address] Aug, [facility] [address] [id number] [address] [place] [address], [place] [address] Aug, [facility] [address] [id number] [address] [place] [address], [place] [address] Jul, [facility] [address] [id number] [address] [place] [address], [place] [address] Jul, [facility] [address] [id number] [address] [place] [address], [place] [address] Jul, [facility] [address] [id number] [address] [place] [address], [place] [address] Jul, [facility] [address] [id number] [address] [place] [address], [place] [address] Jul, [facility] [address] [id number] [address] [place] [address], [place] [address] Jul, [facility] [address] [id number] [address] [place] [address], [place] [address] Jul, [facility] [address] [id number] [address] [place] [address], [place] [address] Jul, [facility] [address] [id number] [address] [place] [address], [place] [address] Jul, [facility] [address] [id number] [address] [place] [address], [place] [address] Jul, [facility] [address] [id number] [address] [place] [address], [place] [address] Jul, [facility] [address] [id number] [address] [place] [address], [place] [address] Jul, [facility] [address] [id number] [address] [place] [address], [place] [address] 10 Jul, 2013 [facility] [address] [id number] [address] [place], [place] [address], [place] [address] Jul, [facility] [address] [id number] [address] [place] [address], [place] [address] Jul, [facility] [address] [id number] [address] [place] [address], [place] [address] Jul, [facility] [address] [id number] [address] [place] [address], [place] [address] Jul, [facility] [address] [id number] [address] [place] [address], [place] [address] Jul, [facility] [address] [id number] [address] [place] [address], [place] [address] Jul, [facility] [address] [id number] [address] [place] [address], [place] [address] Jul, [facility] [address] [id number] [address] [place] [address], [place] [address] Jun, [facility] [address] [id number] [address] [place] [address], [place] [address] Jun, [facility] [address] [id number] [address] [place] [address], [place] [address] Jun, [facility] [address] [id number] [address] [place] [address], [place] [address] Jun, [facility] [address] [id number] [address] [place] [address], [place] [address] Jun, [facility] [address] [id number] [address] [place] [address], [place] [address] Jun, [facility] [address] [id number] [address] [place] [address], [place] [address] Jun, [facility] [address] [id number] [address] [place] [address], [place] [address] Jun, [facility] [address] [id number] [address] [place] [address], [place] [address] Jun, [facility] [address] [id number] [address] [place] [address], [place] [address] Jun, [facility] [address] [id number] [address] [place] [address], [place] [address] Jun, [facility] [address] [id number] [address] [place] [address], [place] [address] Jun, [facility] [address] [id number] [address] [place] [address], [place] [address] Jun, [facility] [address] [id number] [address] [place] [address], [place] [address] Jun, [facility] [address] [id number] [address] [place] [address], [place] [address] Jun, [facility] [address] [id number] [address] [place] [address], [place] [address] Jun, [facility] [address] [id number] [address] [place] [address], [place] [address] Jun, [facility] [address] [id number] [address] [place] [address], [place] [address] Jun, [facility] [address] [id number] [address] [place] [address], [place] [address] 17 Jun, 2013 [facility] [address] [id number] [address] [place] [address], [place] [address] 13 Jun, 2013 [facility] [address] [id number] [address] [place] [address], [place] [address] Jun, [facility] [address] [id number] [address] [place] [address], [place] [address] Jun, [facility] [address] [id number] [address] [place] [address], [place] [address] 09 Jun, 2013 [facility] [address] [id number] [address] [place] [phone] 05 Jun, 2013 [facility] [address] [id number] [address] [place] [address], [place] [address] Jun, [facility] [address] [id number] [address] [place] [address] Jun, [facility] [address] [id number] [address] [place] [address] Jun, [facility] [address] [id number] [address] [place] [address] May, [facility] [address] [id number] [address] [place] [address] May, [facility] [address] [id number] [address] [place] [address] May, [facility] [address] [id number] [address] [place] [address] May, [facility] [address] [id number] [address] [place] [address] May, [facility] [address] [id number] [address] [place] [address] May, [facility] [address] [id number] [address] [place] [address] Apr, [facility] [address] [id number] [address] [place] [address] 30 Apr, 2013 [facility] [address] [id number] [address] [place] [address] 30 Apr, 2013 [facility] [address] [id number] [address] [place] [address] 30 Apr, 2013 [facility] [address] [id number] [address] [place] [address] Apr, [facility] [address] [id number] [address] [place] [address] 15 Apr, 2013 [facility] [address] [id number] [address] [place] [address], [place] [address] 15 Apr, 2013 [facility] [address] [id number] [address] [place] [address], [place] [address] 01 Apr, 2013 [facility] [address] [id number] [address] [place] [address], [place] [address] 26 Mar, 2012 [facility] [address] [id number] [address] [place] [address], [place] [address] 24 Mar, 2012 [facility] [address] [id number] [address] [place] [address], [place] [address] 17 Mar, 2012 [facility] [address] [id number] [address] [place] [address], [place] [address] 17 Mar, 2012 [facility] [address] [id number] [address] [place] [address], [place] [address] 11 Mar, 2013 [facility] [address] [id number] [address] [place] [address], [place] [address] 10 Mar, 2013 [facility] [address] [id number] [address] [place] [address], [place] [address] 05 Mar, 2013 [facility] [address] [id number] [address] [place] [address], [place] [address] 04 Mar, 2013 [facility] [address] [id number] [address] [place] [address], [place] [address] 20 Jan, 2013 [facility] [address] [id number] [address] [place] [address], [place] [address] Jan, [facility] [address] [id number] [address] [place] [address], [place] [address] 14 Jan, 2013 [facility] [address] [id number] [address] [place] [address], [place] [address] Jan, [facility] [address] [id number] [address] [place] [address], [place] [address] Jan, [facility] [address] [id number] [address] [place] [address], [place] [address] 05 Jan, 2013 [facility] [address] [id number] [address] [place] [address], [place] [address] 31 Dec, 2012 [facility] [address] [id number] [address] [place] [address], [place] [address] 24 Dec, 2012 [facility] [address] [id number] [address] [place] [address], [place] [address] Dec, [facility] [address] [id number] [address] [place] [address], [place] [address] Dec, [facility] [address] [id number] [address] [place] [address], [place] [address] 18 Dec, 2012 [facility] [address] [id number] [address] [place] [address], [place] [address] 17 Dec, 2012 [facility] [address] [id number] [address] [place] [address], [place] [address] 16 Dec, 2012 [facility] [address] [id number] [address] [place] [address], [place] [address] 16 Dec, 2012 [facility] [address] [id number] [address] [place] [address], [place] [address] 15 Dec, 2012 [facility] [address] [id number] [address] [place] [address], [place] [address] Dec, [facility] [address] [id number] [address] [place] [address], [place] [address] 28 Dec, 2012 [facility] [address] [id number] [address] [place] [address], [place] [address] Dec, [facility] [address] [id number] [address] [place] [address], [place] [address] Dec, [facility] [address] [id number] [address] [place] [address], [place] [address] 17 Dec, 2012 [facility] [address] [id number] [address] [place] [address], [place] [address] 13 Dec, 2012 [facility] [address] [id number] [address] [place] [address], [place] [address] Dec, [facility] [address] [id number] [address] [place] [address], [place] [address] October, [facility] [address] [id number] [address] [place] [address], [place] [address] October, [facility] [address] [id number] [address] [place] [address], [place] [address] October, [facility] [address] [id number] [address] [place] [address], [place] [address] October, [facility] [address] [id number] [address] [place] [address], [place] [address] October, [facility] [address] [id number] [address] [place] [address], [place] [address] October, [facility] [address] [id number] [address] [place] [address], [place] [address] October, [facility] [address] [id number] [address] [place] [address], [place] [address] Oct, [facility] [address] [id number] [address] [place] [address], [place] [address] Oct, [facility] [address] [id number] [address] [place] [address], [place] [address] Oct, [facility] [address] [id number] [address] [place] [address], [place] [address] Oct, [facility] [address] [id number] [address] [place] [address], [place] [address] Oct, [facility] [address] [id number] [address] [place] [address], [place] [address] 18 Oct, 2012 [facility] [address] [id number] [address] [place] [address], [place] [address] 17 Oct, 2012 [facility] [address] [id number] [address] [place] [address], [place] [address] 15 Oct, 2012 [facility] [address] [id number] [address] [place] [address], [place] [address] Oct, [facility] [address] [id number] [address] [place] [address], [place] [address] Oct, [facility] [address] [id number] [address] [place] [address], [place] [address] Oct, [facility] [address] [id number] [address] [place] [address], [place] [address] Oct, [facility] [address] [id number] [address] [place] [address], [place] [address] Aug, [facility] [address] [id number] [address] [place] [address], [place] [address] Aug, [facility] [address] [id number] [address] [place] [address], [place] [address] Aug, [facility] [address] [id number] [address] [place] [address], [place] [address] Aug, [facility] [address] [id number] [address] [place] [address], [place] [address] Aug, [facility] [address] [id number] [address] [place] [address], [place] [address] Aug, [facility] [address] [id number] [address] [place] [address], [place] [address] Aug, [facility] [address] [id number] [address] [place] [address], [place] [address] 14 Aug, 2012 [facility] [address] [id number] [address] [place] [address], [place] [address] Aug, [facility] [address] [id number] [address] [place] [address], [place] [address] Aug, [facility] [address] [id number] [address] [place] [address], [place] [address] Jul, [facility] [address] [id number] [address] [place] [address] 15 Jul, 2012 [facility] [address] [id number] [address] [place] [address], [place] [address] 08 Jul, 2012 [facility] [address] [id number] [address] [place] [address], [place] [address] 20 Jun, 2012 [facility] [address] [id number] [address] [place] [address], [place] [address] 18 Jun, 2012 [facility] [address] [id number] [address] [place] [address], [place] [address] 18 Jun, 2012 [facility] [address] [id number] [address] [place] [address], [place] [address] 18 Jun, 2012 [facility] [address] [id number] [address] [place] [address], [place] [address] 18 Jun, 2012 [facility] [address] [id number] [address] [place] [address], [place] [address] 14 Jun, 2012 [facility] [address] [id number] [address] [place] [address], [place] [address] 14 Jun, 2012 [facility] [address] [id number] [address] [place] [address], [place] [address] 13 Jun, 2012 [facility] [address] [id number] [address] [place] [address], [place] [address] 13 Jun, 2012 [facility] [address] [id number] [address] [place] [address], [place] [address] 11 Jun, 2012 [facility] [address] [id number] [address] [place] [address], [place] [address] 11 Jun, 2012 [facility] [address] [id number] [address] [place] [address], [place] [address] 11 Jun, 2012 [facility] [address] [id number] [address] [place] [address], [place] [address] 11 Jun, 2012 [facility] [address] [id number] [address] [place] [address], [place] [address] 07 Jun, 2012 [facility] [address] [id number] [address] [place] [address], [place] [address] Jun, [facility] [address] [id number] [address] [place] [address], [place] [address] Jun, [facility] [address] [id number] [address] [place] [address], [place] [address] Jun, [facility] [address] [id number] [address] [place] [address], [place] [address] Jun, [facility] [address] [id number] [address] [place] [address], [place] [address] Jun, [facility] [address] [id number] [address] [place] [address], [place] [address] Jun, [facility] [address] [id number] [address] [place] [address], [place] [address] Jun, [facility] [address] [id number] [address] [place] [address], [place] [address] Jun, [facility] [address] [id number] [address] [place] [address], [place] [address] Jun, [facility] [address] [id number] [address] [place] [address], [place] [address] May, [facility] [address] [id number] [address] [place] [address], [place] [address] May, [facility] [address] [id number] [address] [place] [address], [place] [address] May, [facility] [address] [id number] [address] [place] [address], [place] [address] May, [facility] [address] [id number] [address] [place] [address], [place] [address] May, [facility] [address] [id number] [address] [place] [address], [place] [address] May, [facility] [address] [id number] [address] [place] [address] [address] May, [facility] [address] [id number] [address] [place] [address], [place] [address] May, [facility] [address] [id number] [address] [place] [address], [place] [address] Apr, [facility] [address] [id number] [address] [place] [address], [place] [address] Apr, [facility] [address] [id number] [address] [place] [address], [place] [address] Apr, [facility] [address] [id number] [address] [place] [address], [place] [address] Apr, [facility] [address] [id number] [address] [place] [address], [place] [address] Apr, [facility] [address] [id number] [address] [place] [address], [place] [address] Apr, [facility] [address] [id number] [address] [place] [address], [place] [address] Apr, [facility] [address] [id number] [address] [place] [address], [place] [address] Apr, [facility] [address] [id number] [address] [place] [address] Apr, [facility] [address] [id number] [address] [place] [address] Apr, [facility] [address] [id number] [address] [place] [address] Apr, [facility] [address] [id number] [address] [place] [address], [place] [address] Apr, [facility] [address] [id number] [address] [place] [address] Mar, [facility] [address] [id number] [address] [place] [address] 18 Mar, 2012 [facility] [address] [id number] [address] [place] [address], [place] [address] 12 Mar, 2012 [facility] [address] [id number] [address] [place] [address], [place] [address] Mar, [facility] [address] [id number] [address] [place] [id number] Mar, [facility] [address] [id number] [address] [place] [address] [id number] Mar, [facility] [address] [id number] [address] [place] [address], [place] [address] Mar, [facility] [address] [id number] [address] [place] [address], [place] [address] Jan, [facility] [address] [id number] [address] [place] [address], [place] [address] Jan, [facility] [address] [id number] [address] [place] [address] [id number] Jan, [facility] [address] [id number] [address] [place] [id number] Jan, [facility] [address] [id number] [address] [place] [address], [place] [address] Jan, [facility] [address] [id number] [address] [place] [address], [place] [address] Jan, [facility] [address] [id number] [address] [place] [address], [place] [address] Jan, [facility] [address] [id number] [address] [place] [id number] Jan, [facility] [address] [id number] [address] [place] [address], [place] [address] Jan, [facility] [address] [id number] [address] [place] [address], [place] [address] Jan, [facility] [address] [id number] [address] [place] [address], [place] [address] Jan, [facility] [address] [id number] [facility] [place] [address] 28 Jan, 2012 [facility] [address] [id number] [facility] [place] [address] 27 Jan, 2012 [facility] [address] [id number] [facility] [place] [address] 26 Jan, 2012 [facility] [address] [id number] [address] [place] [address], [place] [address] 26 Jan, 2012 [facility] [address] [id number] [address] [place] [address], [place] [address] 20 Jan, 2012 [facility] [address] [id number] [address] [place] [address], [place] [address] 19 Jan, 2012 [facility] [address] [id number] [address] [place] [address], [place] [address] 18 Jan, 2012 [facility] [address] [id number] [address] [place] [address], [place] [address] 17 Jan, 2012 [facility] [address] [id number] [address] [place] [address], [place] [address] 16 Jan, 2012 [facility] [address] [id number] [address] [place] [address], [place] [address] Dec, [facility] [address] [id number] [address] [place] [address], [place] [address] Dec, [facility] [address] [id number] [address] [place] [address], [place] [address] Dec, [facility] [address] [id number] [address] [place] [address], [place] [address] Dec, [facility] [address] [id number] [address] [place] [address], [place] [address] Dec, [facility] [address] [id number] [address] [place] [address], [place] [address] Dec, [facility] [address] [id number] [address] [place] [address] [address] Dec, [facility] [address] [id number] [address] [place] [address], [place] [address] Dec, [facility] [address] [id number] [address] [place] [address], [place] [address] Dec, [facility] [address] [id number] [address] [place] [address], [place] [address] Dec, [facility] [address] [id number] [address] [place] [address], [place] [address] October, [facility] [address] [id number] [address] [place] [address], [place] [address] October, [facility] [address] [id number] [address] [place] [address], [place] [address] October, [facility] [address] [id number] [address] [place] [address], [place] [address] October, [facility] [address] [id number] [address] [place] [address], [place] [address] October, [facility] [address] [id number] [address] [place] [address], [place] [address] October, [facility] [address] [id number] [address] [place] [address], [place] [address] Oct, [facility] [address] [id number] [address] [place] [address], [place] [address] Oct, [facility] [address] [id number] [address] [place] [address], [place] [address] Oct, [facility] [address] [id number] [address] [place] [address], [place] [address] Oct, [facility] [address] [id number] [address] [place] [address], [place] [address] Oct, [facility] [address] [id number] [address] [place] [address], [place] [address] Oct, [facility] [address] [id number] [address] [place] [address], [place] [address] 02 Oct, 2011 [facility] [address] [id number] [address] [place] [address], [place] [address] 29 Sep, 2011 [facility] [address] [id number] [address] [place] [address], [place] [address] 29 Sep, 2011 [facility] [address] [id number] [address] [place] [address], [place] [address] 19 Sep, 2011 [facility] [address] [id number] [address] [place] [address], [place] [address] 13 Sep, 2011 [facility] [address] [id number] [address] [place] [address], [place] [address] 05 Sep, 2011 [facility] [address] [id number] [address] [place] [address], [place] [address] 05 Sep, 2011 [facility] [address] [id number] [address] [place] [address], [place] [address] 27 Aug, 2011 [facility] [address] [id number] [address] [place] [address], [place] [address] 20 Aug, 2011 [facility] [address] [id number] [address] [place] [address], [place] [address] 08 Aug, 2011 [facility] [address] [id number] [address] [place] [address], [place] [address] 31 Jul, 2011 [facility] [address] [id number] [address] [place] [address], [place] [address] Jul, [facility] [address] [id number] [address] [place] [address], [place] [address] Jul, [facility] [address] [id number] [address] [place] [address], [place] [address] 10 Jul, 2011 [facility] [address] [id number] [address] [place] [address], [place] [address] 28 Jun, 2011 [facility] [address] [id number] [address] [place] [address], [place] [address] Jun, [facility] [address] [id number] [address] [place] [address], [place] [address] May, [facility] [address] [id number] [address] [place] [address], [place] [address] May, [facility] [address] [id number] [address] [place] [address], [place] [address] May, [facility] [address] [id number] [address] [place] [address], [place] [address] May, [facility] [address] [id number] [address] [place] [address], [place] [address] May, [facility] [address] [id number] [address] [place] [address], [place] [address] Apr, [facility] [address] [id number] [address] [place] [address], [place] [address] Apr, [facility] [address] [id number] [address] [place] [phone] Apr, [facility] [address] [id number] [address] [place] [address], [place] [address] Jan, [facility] [address] [id number] [address] [place] [address] Dec, [facility] [address] [id number] [address] [place] [address] October, [facility] [address] [id number] [address] [place] [address] Jun, [facility] [address] [id number] [address] [place] [address], [place] [address] 23 Apr, 2009 [facility] [address] [id number] [address] [place] [id number] 13 Apr, 2009 [facility] [address] [id number] [address] [place] [phone] 13 Apr, 2009 [facility] [address] [id number] [address] [place] [phone] Jun, IMMUNIZATIONS No Known Immunizations SOCIAL HISTORY Never Assessed REASON FOR VISIT adderall 03/24/2017 PLAN OF CARE VITAL SIGNS MEDICATIONS Medication [...]
--- OUTSIDE RECORDS SUMMARY | 2020-01-25 13:41 | XMS REPORT | Continuity of Care Document ---
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 ANXIETY UNSPEC 01/12/2011 MELISA DRAKE JR S 307.47 SI DYSSOMNIA NOS 01/12/2011 MELISA DRAKE JR S 296.80 MO BIPOLAR NOS 01/12/2011 MELISA DRAKE JR S 300.00 AN ANXIETY UNSPEC 01/12/2011 MELISA DRAKE JR S 307.47 SI DYSSOMNIA NOS 01/12/2011 MCDONALD DO CHAZ K 296.80 MO BIPOLAR NOS 01/12/2011 MCDONALD DO CHAZ K 300.00 AN ANXIETY UNSPEC 01/12/2011 MCDONALD DO CHAZ K 307.47 SI DYSSOMNIA NOS 01/12/2011 MELISA DRAKE JR S 296.80 MO BIPOLAR NOS 01/12/2011 MELISA DRAKE JR S 300.00 AN ANXIETY UNSPEC 01/12/2011 MELISA DRAKE JR S 307.47 SI DYSSOMNIA NOS 01/12/2011 LINNETTE BLANKENSHIP ISRRAEL R 296.80 MO BIPOLAR NOS 01/12/2011 LINNETTE BLANKENSHIP, ISRRAEL R 300.00 AN ANXIETY UNSPEC 01/12/2011 LINNETTE BLANKENSHIP ISRRAEL R 307.47 SI DYSSOMNIA NOS 01/12/2011 LINNETTE BLANKENSHIP ISRRAEL R 296.80 MO BIPOLAR NOS 01/12/2011 LINNETTE MERAZN, ISRRAEL R 300.00 AN ANXIETY UNSPEC 01/12/2011 LINNETTE BLANKENSHIP, ISRRAEL R 307.47 SI DYSSOMNIA NOS 01/12/2011 MELISA DRAKE JR S 296.80 MO BIPOLAR NOS 01/12/2011 MELISA DRAKE JR S 300.00 AN ANXIETY UNSPEC 01/12/2011 MELISA DRAKE JR S 307.47 SI DYSSOMNIA NOS 01/12/2011 MELISA DRAKE JR S 296.80 MO BIPOLAR NOS 01/12/2011 MELISA DRAKE JR S 300.00 AN ANXIETY UNSPEC 01/12/2011 MELISA DRAKE JR S 307.47 SI DYSSOMNIA NOS 01/12/2011 YARI ORELLANA ANEUDY Karla 296 .80 MO BIPOLAR NOS 01/12/2011 ANEUDY GREENBERG DO F 300 .00 AN ANXIETY UNSPEC 01/12/2011 ANEUDY GREENBERG DO F 307 .47 SI DYSSOMNIA NOS 01/31/2011 ANEUDY GREENBERG DO F 465 .9 Upper Respiratory Infection 01/31/2011 ANEUDY GREENBERG DO F 465 .9 Upper Respiratory Infection 01/31/2011 CHAZ MCDONALD DO K 465.9 Upper Respiratory Infection 01/31/2011 465.9 Uppe r Respiratory Infection 01/31/2011 465.9 Uppe r Respiratory Infection 01/31/2011 465.9 Uppe r Respiratory Infection 01/31/2011 465.9 Uppe r Respiratory Infection 01/31/2011 ANEUDY GREENBERG DO 465 .9 Upper Respiratory Infection 01/31/2011 JOVI SAWYER APRN 465.9 Upper Respiratory Infection 01/31/2011 CHAZ MCDONALD DO 465.9 Upper Respiratory Infection 01/31/2011 JOVI SAWYER APRN 465.9 Upper Respiratory Infection 01/31/2011 JOVI SAWYER APRN 465.9 Upper Respiratory Infection 01/31/2011 AVA GUTIÉRREZ MD 465 .9 Upper Respiratory Infection 01/31/2011 CHAZ MCDONALD DO 465.9 Upper Respiratory Infection 01/31/2011 CHAZ MCDONALD DO K 465.9 Upper Respiratory Infection 01/31/2011 DEMI HELTON MD 465.9 Upper Respiratory Infection 01/31/2011 MELISA DRAKE JR S 465.9 Upper Respiratory Infection 01/31/2011 DEMI HELTON MD 465.9 Upper Respiratory Infection 01/31/2011 MELISA DRAKE JR S 465.9 Upper Respiratory Infection 01/31/2011 MELISA DRAKE JR S 465.9 Upper Respiratory Infection 01/31/2011 MELISA DRAKE JR S 465.9 Upper Respiratory Infection 01/31/2011 MELISA DRAKE JR S 465.9 Upper Respiratory Infection 01/31/2011 NOELLE DIEZ MELISA S 465.9 Upper Respiratory Infection 01/31/2011 MELISA DRAKE JR S 465.9 Upper Respiratory Infection 01/31/2011 CHAZ MCDONALD DO K 465.9 Upper Respiratory Infection 01/31/2011 MELISA DRAKE JR S 465.9 Upper Respiratory Infection 01/31/2011 LINNETTE APRON TRIMMER, ISRRAEL R 465.9 Upper Respiratory Infection 01/31/2011 LINNETTE APRON TRIMMER, ISRRAEL R 465.9 Upper Respiratory Infection 01/31/2011 MELISA DRAKE JR S 465.9 Upper Respiratory Infection 01/31/2011 MELISA DRAKE JR S 465.9 Upper Respiratory Infection 01/31/2011 WERCOOPER ANEUDY F 465 .9 Upper Respiratory Infection 04/05/2011 WERDER DO ANEUDY F 294 .9 OR COG DIS NOS 04/05/2011 YARI DO ANEUDY F 294 .9 OR COG DIS NOS 04/05/2011 MCDONALD DO CHAZ K 294.9 OR COG DIS NOS 04/05/2011 294.9 OR C OG DIS NOS 04/05/2011 294.9 OR C OG DIS NOS 04/05/2011 294.9 OR C OG DIS NOS 04/05/2011 294.9 OR C OG DIS NOS 04/05/2011 YARI DOANEUDY F 294 .9 OR COG DIS NOS 04/05/2011 JOVI SAWYER APRN 294.9 OR COG DIS NOS 04/05/2011 MCDONALD DOCHAZ K 294.9 OR COG DIS NOS 04/05/2011 JOVI SAWYER APRN 294.9 OR COG DIS NOS 04/05/2011 JOVI SAWYER APRN 294.9 OR COG DIS NOS 04/05/2011 AVA GUTIÉRREZ MD 294 .9 OR COG DIS NOS 04/05/2011 MCDONALD DOJAIMEA K 294.9 OR COG DIS NOS 04/05/2011 MCDONALD DOCHAZ K 294.9 OR COG DIS NOS 04/05/2011 DEMI HELTON MD 294.9 OR COG DIS NOS 04/05/2011 MELISA DRAKE JR S 294.9 OR COG DIS NOS 04/05/2011 DEMI HELTON MD 294.9 OR COG DIS NOS 04/05/2011 MELISA DRAKE JR S 294.9 OR COG DIS NOS 04/05/2011 MELISA DRAKE JR S 294.9 OR COG DIS NOS 04/05/2011 MELISA DRAKE JR S 294.9 OR COG DIS NOS 04/05/2011 MELISA DRAKE JR S 294.9 OR COG DIS NOS 04/05/2011 MELISA DRAKE JR S 294.9 OR COG DIS NOS 04/05/2011 MELISA DRAKE JR S 294.9 OR COG DIS NOS 04/05/2011 HARRY DOJAIMEA K 294.9 OR COG DIS NOS 04/05/2011 MELISA DRAKE JR S 294.9 OR COG DIS NOS 04/05/2011 LINNETTE APRON TRIMMER, ISRRAEL R 294.9 OR COG DIS NOS 04/05/2011 LINNETTE APRON TRIMMER, ISRRAEL R 294.9 OR COG DIS NOS 04/05/2011 MELISA DRAKE JR S 294.9 OR COG DIS NOS 04/05/2011 MELISA DRAKE JR S 294.9 OR COG DIS NOS 04/05/2011 WERCOOPER ANEUDY F 294 .9 OR COG DIS NOS 04/29/2011 BLANCHE GREENBERG DOEN F 314 .01 ADHD COMBINED 04/29/2011 ANEUDY GREENBERG DO F 314 .01 ADHD COMBINED 04/29/2011 MCDONALD DOCHAZ K 314.01 ADHD COMBINED 04/29/2011 314.01 ADH D COMBINED 04/29/2011 314.01 ADH D COMBINED 04/29/2011 314.01 ADH D COMBINED 04/29/2011 314.01 ADH D COMBINED 04/29/2011 ANEUDY GREENBERG DO F 314 .01 ADHD COMBINED 04/29/2011 JOVI SAWYER APRN 314.01 ADHD COMBINED 04/29/2011 CHAZ MCDONALD DO K 314.01 ADHD COMBINED 04/29/2011 JOVI SAWYER APRN 314.01 ADHD COMBINED 04/29/2011 JOVI SAWYER APRN 314.01 ADHD COMBINED 04/29/2011 MARLA MOBLEY, AVA Hernández 314 .01 ADHD COMBINED 04/29/2011 CHAZ MCDONALD DO K 314.01 ADHD COMBINED 04/29/2011 CHAZ MCDONALD DO K 314.01 ADHD COMBINED 04/29/2011 DEMI HELTON MD 314.0 1 ADHD COMBINED 04/29/2011 MELISA DRAKE JR 314.01 ADHD COMBINED 04/29/2011 DEMI HELTON MD 314.0 1 ADHD COMBINED 04/29/2011 MELISA DRAKE JR 314.01 ADHD COMBINED 04/29/2011 MELISA DRAKE JR 314.01 ADHD COMBINED 04/29/2011 MELISA DRAKE JR 314.01 ADHD COMBINED 04/29/2011 MELISA DRAKE JR 314.01 ADHD COMBINED 04/29/2011 MELISA DRAKE JR 314.01 ADHD COMBINED 04/29/2011 DARKE JR, MELISA S 314.01 ADHD COMBINED 04/29/2011 CHAZ MCDONALD DO 314.01 ADHD COMBINED 04/29/2011 MELISA DRAKE JR S 314.01 ADHD COMBINED 04/29/2011 LINNETTE APRON TRIMMER, ISRRAEL R 314.01 ADHD COMBINED 04/29/2011 LINNETTE APRON TRIMMER, ISRRAEL R 314.01 ADHD COMBINED 04/29/2011 MELISA DRAKE JR 314.01 ADHD COMBINED 04/29/2011 MELISA DRAKE JR 314.01 ADHD COMBINED 04/29/2011 ANEUDY GREENBERG DO F 314 .01 ADHD COMBINED 08/29/2011 BLANCHE GREENBERG DOEN F 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 08/29/2011 ANEUDY GREENBERG DO F 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 08/29/2011 CHAZ MCDONALD DO 314.00 ADHD INATTENTIVE 08/29/2011 314.00 ADH D INATTENTIVE 08/29/2011 314.00 ADH D INATTENTIVE 08/29/2011 314.00 ADH D INATTENTIVE 08/29/2011 314.00 ADH D INATTENTIVE 08/29/2011 [facility]ANEUDY MENDEZ DO F 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 08/29/2011 JOVI SAWYER APRN 314.00 ADHD INATTENTIVE 08/29/2011 CHAZ MCDONALD DO 314.00 ADHD INATTENTIVE 08/29/2011 JOVI SAWYER APRN 314.00 ADHD INATTENTIVE 08/29/2011 JOVI SAWYER APRN 314.00 ADHD INATTENTIVE 08/29/2011 MARLA MOBLEY, AVA Hernández 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 08/29/2011 CHAZ MCDONALD DO 314.00 ADHD INATTENTIVE 08/29/2011 CHAZ MCDONALD DO 314.00 ADHD INATTENTIVE 08/29/2011 DEMI HELTON MD 314.0 0 ADHD INATTENTIVE 08/29/2011 MELISA DRAKE JR 314.00 ADHD INATTENTIVE 08/29/2011 DEMI HELTON MD 314.0 0 ADHD INATTENTIVE 08/29/2011 MELISA DRAKE JR 314.00 ADHD INATTENTIVE 08/29/2011 MELISA DRAKE JR 314.00 ADHD INATTENTIVE 08/29/2011 MELISA DRAKE JR 314.00 ADHD INATTENTIVE 08/29/2011 MELISA DRAKE JR 314.00 ADHD INATTENTIVE 08/29/2011 MELISA DRAKE JR 314.00 ADHD INATTENTIVE 08/29/2011 MELISA DRAKE JR 314.00 ADHD INATTENTIVE 08/29/2011 CHAZ MCDONALD DO K 314.00 ADHD INATTENTIVE 08/29/2011 MELISA DRAKE JR S 314.00 ADHD INATTENTIVE 08/29/2011 LINNETTE APRON TRIMMER, ISRRAEL R 314.00 ADHD INATTENTIVE 08/29/2011 LINNETTE APRON TRIMMER, ISRRAEL R 314.00 ADHD INATTENTIVE 08/29/2011 MELISA DRAKE JR 314.00 ADHD INATTENTIVE 08/29/2011 MELISA DRAKE JR S 314.00 ADHD INATTENTIVE 08/29/2011 ANEUDY GREENBERG DO 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 09/29/2011 YARI ANEUDY F 477 .0 ALLERGIC RHINITIS DUE TO POLLEN 09/29/2011 ANEUDY GREENBERG DO F 477 .0 ALLERGIC RHINITIS DUE TO POLLEN 09/29/2011 CHAZ MCDONALD DO 477.0 ALLERGIC RHINITIS DUE TO POLLEN 09/29/2011 477.0 EDWARD RGIC RHINITIS DUE TO POLLEN 09/29/2011 477.0 EDWARD RGIC RHINITIS DUE TO POLLEN 09/29/2011 477.0 EDWARD RGIC RHINITIS DUE TO POLLEN 09/29/2011 477.0 EDWARD RGIC RHINITIS DUE TO POLLEN 09/29/2011 ANEUDY GREENBERG DO F 477 .0 ALLERGIC RHINITIS DUE TO POLLEN 09/29/2011 JOVI SAWYER APRN 477.0 ALLERGIC RHINITIS DUE TO POLLEN 09/29/2011 CHAZ MCDONALD DO 477.0 ALLERGIC RHINITIS DUE TO POLLEN 09/29/2011 JOVI SAWYER APRN 477.0 ALLERGIC RHINITIS DUE TO POLLEN 09/29/2011 JOVI SAWYER APRN 477.0 ALLERGIC RHINITIS DUE TO POLLEN 09/29/2011 AVA GUTIÉRREZ MD 477 .0 ALLERGIC RHINITIS DUE TO POLLEN 09/29/2011 CHAZ MCDONALD DO 477.0 ALLERGIC RHINITIS DUE TO POLLEN 09/29/2011 CHAZ MCDONALD DO 477.0 ALLERGIC RHINITIS DUE TO POLLEN 09/29/2011 DEMI HELTON MD 477.0 ALLERGIC RHINITIS DUE TO POLLEN 09/29/2011 MELISA DRAKE JR 477.0 ALLERGIC RHINITIS DUE TO POLLEN 09/29/2011 DEMI HELTON MD 477.0 ALLERGIC RHINITIS DUE TO POLLEN 09/29/2011 MELISA DRAKE JR S 477.0 ALLERGIC RHINITIS DUE TO POLLEN 09/29/2011 DRAKE JR, MELISA S 477.0 ALLERGIC RHINITIS DUE TO POLLEN 09/29/2011 DRAKE JR, MELISA S 477.0 ALLERGIC RHINITIS DUE TO POLLEN 09/29/2011 DRAKE JR, MELISA S 477.0 ALLERGIC RHINITIS DUE TO POLLEN 09/29/2011 DRAKE JR, MELISA S 477.0 ALLERGIC RHINITIS DUE TO POLLEN 09/29/2011 DRAKE JR, MELISA S 477.0 ALLERGIC RHINITIS DUE TO POLLEN 09/29/2011 CHAZ MCDONALD DO 477.0 ALLERGIC RHINITIS DUE TO POLLEN 09/29/2011 DRAKE JR, MELISA S 477.0 ALLERGIC RHINITIS DUE TO POLLEN 09/29/2011 LINNETTE APRON TRIMMER, ISRRAEL R 477.0 ALLERGIC RHINITIS DUE TO POLLEN 09/29/2011 LINNETTE APRON TRIMMER, ISRRAEL R 477.0 ALLERGIC RHINITIS DUE TO POLLEN 09/29/2011 DRAKE JR, MELISA S 477.0 ALLERGIC RHINITIS DUE TO POLLEN 09/29/2011 DRAKE JR, MELISA S 477.0 ALLERGIC RHINITIS DUE TO POLLEN 09/29/2011 ANEUDY GREENBERG DO 477 .0 ALLERGIC RHINITIS DUE TO POLLEN 10/21/2011 ANEUDY GREENBERG DO V58 .69 MEDICATION HIGH RISK 10/21/2011 ANEUDY GREENBERG DO V58 .69 MEDICATION HIGH RISK 10/21/2011 CHAZ MCDONALD DO V58.69 MEDICATION HIGH RISK 10/21/2011 V58.69 MED ICATION HIGH RISK 10/21/2011 V58.69 MED ICATION HIGH RISK 10/21/2011 V58.69 MED ICATION HIGH RISK 10/21/2011 V58.69 MED ICATION HIGH RISK 10/21/2011 ANEUDY GREENBERG DO V58 .69 MEDICATION HIGH RISK 10/21/2011 JOVI SAWYER APRN V58.69 MEDICATION HIGH RISK 10/21/2011 CHAZ MCDONALD DO V58.69 MEDICATION HIGH RISK 10/21/2011 JOVI SAWYER APRN V58.69 MEDICATION HIGH RISK 10/21/2011 JOVI SAWYER APRN V58.69 MEDICATION HIGH RISK 10/21/2011 AVA GUTIÉRREZ MD V58 .69 MEDICATION HIGH RISK 10/21/2011 CHAZ MCDONALD DO V58.69 MEDICATION HIGH RISK 10/21/2011 CHAZ MCDONALD DO V58.69 MEDICATION HIGH RISK 10/21/2011 DEMI HELTON MD V58.6 9 MEDICATION HIGH RISK 10/21/2011 MELISA DRAKE JR S V58.69 MEDICATION HIGH RISK 10/21/2011 DEMI HELTON MD V58.6 9 MEDICATION HIGH RISK 10/21/2011 MELISA DRAKE JR S V58.69 MEDICATION HIGH RISK 10/21/2011 MELISA DRAKE JR S V58.69 MEDICATION HIGH RISK 10/21/2011 MELISA DRAKE JR S V58.69 MEDICATION HIGH RISK 10/21/2011 MELISA DRAKE JR S V58.69 MEDICATION HIGH RISK 10/21/2011 MELISA DRAKE JR S V58.69 MEDICATION HIGH RISK 10/21/2011 MELISA DRAKE JR S V58.69 MEDICATION HIGH RISK 10/21/2011 CHAZ MCDONALD DO V58.69 MEDICATION HIGH RISK 10/21/2011 MELISA DRAKE JR S V58.69 MEDICATION HIGH RISK 10/21/2011 LINNETTE BLANKENSHIP ISRRAEL R V58.69 MEDICATION HIGH RISK 10/21/2011 LINNETTE BLANKENSHIP ISRRAEL R V58.69 MEDICATION HIGH RISK 10/21/2011 MELISA DRAKE JR S V58.69 MEDICATION HIGH RISK 10/21/2011 MELISA DRAKE JR S V58.69 MEDICATION HIGH RISK 10/21/2011 ANEUDY GREENBERG DO V58 .69 MEDICATION HIGH RISK 01/14/2012 Ot 292.0 DRUG WITHDRAWAL 01/15/2012 Ot 300.00 ANX IETY STATE NOS 01/17/2012 Ot 295.70 JOVANI IZOAFFECTIVE DISORDER, UNSPECIFIED 01/17/2012 Ot V58.69 OTH MED,LT,CURRENT USE 01/26/2012 ANEUDY GREENBERG DO 296 .40 MO BIPOLAR MANIC UNSPECIFIED 01/26/2012 ANEUDY GREENBERG DO 305 .20 CANNABIS ABUSE 01/26/2012 ANEUDY GREENBERG DO 296 .40 MO BIPOLAR MANIC UNSPECIFIED 01/26/2012 ANEUDY GREENBERG DO 305 .20 CANNABIS ABUSE 01/26/2012 CHAZ MCDONALD DO 296.40 MO BIPOLAR MANIC UNSPECIFIED 01/26/2012 CHAZ MCDONALD DO 305.20 CANNABIS ABUSE 01/26/2012 296.40 MO BIPOLAR MANIC UNSPECIFIED 01/26/2012 305.20 CAN NABIS ABUSE 01/26/2012 296.40 MO BIPOLAR MANIC UNSPECIFIED 01/26/2012 305.20 CAN NABIS ABUSE 01/26/2012 296.40 MO BIPOLAR MANIC UNSPECIFIED 01/26/2012 305.20 CAN NABIS ABUSE 01/26/2012 296.40 MO BIPOLAR MANIC UNSPECIFIED 01/26/2012 305.20 CAN NABIS ABUSE 01/26/2012 ANEUDY GREENBERG DO F 296 .40 MO BIPOLAR MANIC UNSPECIFIED 01/26/2012 ANEUDY GREENBERG DO F 305 .20 CANNABIS ABUSE 01/26/2012 JOVI SAWYER APRN 296.40 MO BIPOLAR MANIC UNSPECIFIED 01/26/2012 JOVI SAWYER APRN 305.20 CANNABIS ABUSE 01/26/2012 CHAZ MCDONALD DO 296.40 MO BIPOLAR MANIC UNSPECIFIED 01/26/2012 CHAZ MCDONALD DO 305.20 CANNABIS ABUSE 01/26/2012 JOVI SAWYER APRN 296.40 MO BIPOLAR MANIC UNSPECIFIED 01/26/2012 JOVI SAWYER APRN 305.20 CANNABIS ABUSE 01/26/2012 JOVI SAWYER APRN 296.40 MO BIPOLAR MANIC UNSPECIFIED 01/26/2012 JOVI SAWYER APRN 305.20 CANNABIS ABUSE 01/26/2012 MARLA MOBLEY, AVA Hernández 296 .40 MO BIPOLAR MANIC UNSPECIFIED 01/26/2012 AVA GUTIÉRREZ MD 305 .20 CANNABIS ABUSE 01/26/2012 JAIME MCDONALD DOA K 296.40 MO BIPOLAR MANIC UNSPECIFIED 01/26/2012 CHAZ MCDONALD DO K 305.20 CANNABIS ABUSE 01/26/2012 JAIME MCDONALD DOA K 296.40 MO BIPOLAR MANIC UNSPECIFIED 01/26/2012 JAIME MCDONALD DOA K 305.20 CANNABIS ABUSE 01/26/2012 DEMI HELTON MD 296.4 0 MO BIPOLAR MANIC UNSPECIFIED 01/26/2012 DEMI HELTON MD 305.2 0 CANNABIS ABUSE 01/26/2012 MELISA DRAKE JR 296.40 MO BIPOLAR MANIC UNSPECIFIED 01/26/2012 MELISA DRAKE JR 305.20 CANNABIS ABUSE 01/26/2012 DEMI HELTON MD 296.4 0 MO BIPOLAR MANIC UNSPECIFIED 01/26/2012 DEMI HELTON MD 305.2 0 CANNABIS ABUSE 01/26/2012 NOELLE DIEZ, MELISA S 296.40 MO BIPOLAR MANIC UNSPECIFIED 01/26/2012 NOELLE DIEZ MLEISA S 305.20 CANNABIS ABUSE 01/26/2012 NOELLE DIEZ, MELISA S 296.40 MO BIPOLAR MANIC UNSPECIFIED 01/26/2012 NOELLE DIEZ, MELISA S 305.20 CANNABIS ABUSE 01/26/2012 NOELLE DIZE, MELISA S 296.40 MO BIPOLAR MANIC UNSPECIFIED 01/26/2012 NOELLE DIEZ MELISA S 305.20 CANNABIS ABUSE 01/26/2012 NOELLE DIEZ, MELISA S 296.40 MO BIPOLAR MANIC UNSPECIFIED 01/26/2012 NOELLE DIEZ MELISA S 305.20 CANNABIS ABUSE 01/26/2012 NOELLE DIEZ MELISA S 296.40 MO BIPOLAR MANIC UNSPECIFIED 01/26/2012 NOELLE DIEZ MELISA S 305.20 CANNABIS ABUSE 01/26/2012 NOELLE DIEZ, MELISA S 296.40 MO BIPOLAR MANIC UNSPECIFIED 01/26/2012 NOELLE DIEZ MELISA S 305.20 CANNABIS ABUSE 01/26/2012 MCDONALD DO CHAZ K 296.40 MO BIPOLAR MANIC UNSPECIFIED 01/26/2012 MCDONALD DO CHAZ K 305.20 CANNABIS ABUSE 01/26/2012 NOELLE DIEZ MELISA S 296.40 MO BIPOLAR MANIC UNSPECIFIED 01/26/2012 MELISA DRAKE JR S 305.20 CANNABIS ABUSE 01/26/2012 LINNETTE APRON TRIMMER, ISRRAEL R 296.40 MO BIPOLAR MANIC UNSPECIFIED 01/26/2012 LINNETTE APRON TRIMMER, ISRRAEL R 305.20 CANNABIS ABUSE 01/26/2012 LINNETTE APRON TRIMMER, ISRRAEL R 296.40 MO BIPOLAR MANIC UNSPECIFIED 01/26/2012 LINNETTE APRON TRIMMER, ISRRAEL R 305.20 CANNABIS ABUSE 01/26/2012 NOELLE DIEZ MELISA S 296.40 MO BIPOLAR MANIC UNSPECIFIED 01/26/2012 MELISA DRAKE JR S 305.20 CANNABIS ABUSE 01/26/2012 NOELLE DIEZ MELISA S 296.40 MO BIPOLAR MANIC UNSPECIFIED 01/26/2012 NOELLE DIEZ MELISA S 305.20 CANNABIS ABUSE 01/26/2012 ANEUDY GREENBERG DO 296 .40 MO BIPOLAR MANIC UNSPECIFIED 01/26/2012 ANEUDY GREENBERG DO 305 .20 CANNABIS ABUSE 02/17/2012 ANEUDY GREENBERG DO 070 .54 HEPATITIS C CHRONIC 02/17/2012 WERDER DO, ANEUDY F 268 .9 VITAMIN D DEFICIENCY 02/17/2012 ANEUDY GREENBERG DO F 070 .54 HEPATITIS C CHRONIC 02/17/2012 ANEUDY GREENBERG DO F 268 .9 VITAMIN D DEFICIENCY 02/17/2012 MCDONALD DO CHAZ K 070.54 HEPATITIS C CHRONIC 02/17/2012 MCDONALD DO, CHAZ K 268.9 VITAMIN D DEFICIENCY 02/17/2012 070.54 HEP ATITIS C CHRONIC 02/17/2012 268.9 MANJU MIN D DEFICIENCY 02/17/2012 070.54 HEP ATITIS C CHRONIC 02/17/2012 268.9 MANJU MIN D DEFICIENCY 02/17/2012 070.54 HEP ATITIS C CHRONIC 02/17/2012 268.9 MANJU MIN D DEFICIENCY 02/17/2012 070.54 HEP ATITIS C CHRONIC 02/17/2012 268.9 MANJU MIN D DEFICIENCY 02/17/2012 ANEUDY GREENBERG DO 070 .54 HEPATITIS C CHRONIC 02/17/2012 ANEUDY GREENBERG DO F 268 .9 VITAMIN D DEFICIENCY 02/17/2012 JOVI SAWYER APRN 070.54 HEPATITIS C CHRONIC 02/17/2012 JOVI SAWYER APRN 268.9 VITAMIN D DEFICIENCY 02/17/2012 MCDONALD DO CHAZ K 070.54 HEPATITIS C CHRONIC 02/17/2012 MCDONALD DOJAIMEA K 268.9 VITAMIN D DEFICIENCY 02/17/2012 JOVI SAWYER APRN 070.54 HEPATITIS C CHRONIC 02/17/2012 JOVI SAWYER APRN 268.9 VITAMIN D DEFICIENCY 02/17/2012 JOVI SAWYER APRN 070.54 HEPATITIS C CHRONIC 02/17/2012 JOVI SAWYER APRN 268.9 VITAMIN D DEFICIENCY 02/17/2012 MARLA MOBLEY, AVA Hernández 070 .54 HEPATITIS C CHRONIC 02/17/2012 MARLA MOBLEY, AVA Hernández 268 .9 VITAMIN D DEFICIENCY 02/17/2012 MCDONALD DO CHAZ K 070.54 HEPATITIS C CHRONIC 02/17/2012 MCDONALD DO, CHAZ K 268.9 VITAMIN D DEFICIENCY 02/17/2012 MCDONALD DO, CHAZ K 070.54 HEPATITIS C CHRONIC 02/17/2012 MCDONALD DO CHAZ K 268.9 VITAMIN D DEFICIENCY 02/17/2012 DEMI HELTON MD 070.5 4 HEPATITIS C CHRONIC 02/17/2012 DEMI HELTON MD 268.9 VITAMIN D DEFICIENCY 02/17/2012 MELISA DRAKE JR S 070.54 HEPATITIS C CHRONIC 02/17/2012 MELISA DRAKE JR 268.9 VITAMIN D DEFICIENCY 02/17/2012 DEMI HELTON MD 070.5 4 HEPATITIS C CHRONIC 02/17/2012 DEMI HELTON MD 268.9 VITAMIN D DEFICIENCY 02/17/2012 MELISA DRAKE JR 070.54 HEPATITIS C CHRONIC 02/17/2012 MELISA DRAKE JR 268.9 VITAMIN D DEFICIENCY 02/17/2012 MELISA DRAKE JR S 070.54 HEPATITIS C CHRONIC 02/17/2012 MELISA DRAKE JR 268.9 VITAMIN D DEFICIENCY 02/17/2012 MELISA DRAKE JR S 070.54 HEPATITIS C CHRONIC 02/17/2012 MELISA DRAKE JR 268.9 VITAMIN D DEFICIENCY 02/17/2012 MELISA DRAKE JR S 070.54 HEPATITIS C CHRONIC 02/17/2012 MELISA DRAKE JR 268.9 VITAMIN D DEFICIENCY 02/17/2012 MELISA DRAKE JR 070.54 HEPATITIS C CHRONIC 02/17/2012 MELISA DRAKE JR 268.9 VITAMIN D DEFICIENCY 02/17/2012 MELISA DRAKE JR S 070.54 HEPATITIS C CHRONIC 02/17/2012 MELISA DRAKE JR 268.9 VITAMIN D DEFICIENCY 02/17/2012 CHAZ MCDONALD DO K 070.54 HEPATITIS C CHRONIC 02/17/2012 MCDONALD CHAZ ORELLANA K 268.9 VITAMIN D DEFICIENCY 02/17/2012 MELISA DRAKE JR 070.54 HEPATITIS C CHRONIC 02/17/2012 MELISA DRAKE JR 268.9 VITAMIN D DEFICIENCY 02/17/2012 LINNETTE APRON TRIMMER, SIRRAEL R 070.54 HEPATITIS C CHRONIC 02/17/2012 LINNETTE APRON TRIMMER, ISRRAEL R 268.9 VITAMIN D DEFICIENCY 02/17/2012 LINNETTE APRON TRIMMER, ISRRAEL R 070.54 HEPATITIS C CHRONIC 02/17/2012 LINNETTE APRON TRIMMER, ISRRAEL R 268.9 VITAMIN D DEFICIENCY 02/17/2012 MELISA DRAKE JR S 070.54 HEPATITIS C CHRONIC 02/17/2012 MELISA DRAKE JR 268.9 VITAMIN D DEFICIENCY 02/17/2012 MELISA DRAKE JR 070.54 HEPATITIS C CHRONIC 02/17/2012 DRAKE JR, MELISA S 268.9 VITAMIN D DEFICIENCY 02/17/2012 ANEUDY GREENBERG DO 070 .54 HEPATITIS C CHRONIC 02/17/2012 ANEUDY GREENBERG DO 268 .9 VITAMIN D DEFICIENCY 02/23/2012 Ot 780.50 SLE EP DISTURBANCE NOS 04/05/2012 ANEUDY GREENBERG DO 466 .0 BRONCHITIS, ACUTE 04/05/2012 ANEUDY GREENBERG DO 466 .0 BRONCHITIS, ACUTE 04/05/2012 CHAZ CMDONALD DO K 466.0 BRONCHITIS, ACUTE 04/05/2012 466.0 BRON CHITIS, ACUTE 04/05/2012 466.0 BRON CHITIS, ACUTE 04/05/2012 466.0 BRON CHITIS, ACUTE 04/05/2012 466.0 BRON CHITIS, ACUTE 04/05/2012 ANEUDY GREENBERG DO F 466 .0 BRONCHITIS, ACUTE 04/05/2012 JOVI SAWYER APRN 466.0 BRONCHITIS, ACUTE 04/05/2012 CHAZ MCDONALD DO K 466.0 BRONCHITIS, ACUTE 04/05/2012 JOVI SAWYER APRN 466.0 BRONCHITIS, ACUTE 04/05/2012 JOVI SAWYER APRN 466.0 BRONCHITIS, ACUTE 04/05/2012 MARLA MOBLEY, AVA Hernández 466 .0 BRONCHITIS, ACUTE 04/05/2012 CHAZ MCDONALD DO K 466.0 BRONCHITIS, ACUTE 04/05/2012 CHAZ MCDONALD DO K 466.0 BRONCHITIS, ACUTE 04/05/2012 DEMI HELTON MD 466.0 BRONCHITIS, ACUTE 04/05/2012 NOELLE DIEZ, MELISA S 466.0 BRONCHITIS, ACUTE 04/05/2012 DEMI HELTON MD 466.0 BRONCHITIS, ACUTE 04/05/2012 NOELLE DIEZ, MELISA S 466.0 BRONCHITIS, ACUTE 04/05/2012 DRAKE , MELISA S 466.0 BRONCHITIS, ACUTE 04/05/2012 DRAKE JR, MELISA S 466.0 BRONCHITIS, ACUTE 04/05/2012 DRAKE JR, MELISA S 466.0 BRONCHITIS, ACUTE 04/05/2012 DRAKE JR, MELISA S 466.0 BRONCHITIS, ACUTE 04/05/2012 DRAKE , MELISA S 466.0 BRONCHITIS, ACUTE 04/05/2012 CHAZ MCDONALD DO K 466.0 BRONCHITIS, ACUTE 04/05/2012 NOELLE DIEZ, MELISA S 466.0 BRONCHITIS, ACUTE 04/05/2012 LINNETTE APRON TRIMMER, ISRRAEL R 466.0 BRONCHITIS, ACUTE 04/05/2012 LINNETTE BLANKENSHIP ISRRAEL R 466.0 BRONCHITIS, ACUTE 04/05/2012 MELISA DRAKE JR S 466.0 BRONCHITIS, ACUTE 04/05/2012 MELISA DRAKE JR S 466.0 BRONCHITIS, ACUTE 04/05/2012 YARI ORELLANABLANCHEEN Karla 466 .0 BRONCHITIS, ACUTE 09/11/2012 CHAZ MCDONALD DO K V15.82 Nicotine abuse 09/11/2012 V15.82 Deejay otine abuse 09/11/2012 V15.82 Deejay otine abuse 09/11/2012 V15.82 Deejay otine abuse 09/11/2012 V15.82 Deejay otine abuse 09/11/2012 ANEUDY GREENBERG DO V15 .82 Nicotine abuse 09/11/2012 JOVI SAWYER APRN V15.82 Nicotine abuse 09/11/2012 CHAZ MCDONALD DO K V15.82 Nicotine abuse 09/11/2012 JOVI SAWYER APRN V15.82 Nicotine abuse 09/11/2012 JOVI SAWYER APRN V15.82 Nicotine abuse 09/11/2012 AVA GUTIÉRREZ MD V15 .82 Nicotine abuse 09/11/2012 JAIME MCDONALD DOA K V15.82 Nicotine abuse 09/11/2012 CHAZ MCDONALD DO K V15.82 Nicotine abuse 09/11/2012 DEMI HELTON MD V15.8 2 Nicotine abuse 09/11/2012 MELISA DRAKE JR S V15.82 Nicotine abuse 09/11/2012 DEMI HELTON MD V15.8 2 Nicotine abuse 09/11/2012 MELISA DRAKE JR S V15.82 Nicotine abuse 09/11/2012 MELISA DRAKE JR S V15.82 Nicotine abuse 09/11/2012 MELISA DRAKE JR S V15.82 Nicotine abuse 09/11/2012 MELISA DRAKE JR S V15.82 Nicotine abuse 09/11/2012 MELISA DRAKE JR S V15.82 Nicotine abuse 09/11/2012 MELISA DRAKE JR S V15.82 Nicotine abuse 09/11/2012 CHAZ MCDONALD DO K V15.82 Nicotine abuse 09/11/2012 MELISA DRAKE JR S V15.82 Nicotine abuse 09/11/2012 CASTILLO ANGLIN APRNINA R V15.82 Nicotine abuse 09/11/2012 ISRRAEL ANGLIN APRN V15.82 Nicotine abuse 09/11/2012 MELISA DRAKE JR V15.82 Nicotine abuse 09/11/2012 MELISA DRAKE JR V15.82 Nicotine abuse 10/24/2012 296.46 MO BIPOLAR I MANIC IN FULL REMISSION 10/24/2012 296.46 MO BIPOLAR I MANIC IN FULL REMISSION 10/24/2012 296.46 MO BIPOLAR I MANIC IN FULL REMISSION 10/24/2012 ANEUDY GREENBERG DO 296 .46 MO BIPOLAR I MANIC IN FULL REMISSION 10/24/2012 JOVI SAWYER APRN 296.46 MO BIPOLAR I MANIC IN FULL REMISSION 10/24/2012 CHAZ MCDONALD DO 296.46 MO BIPOLAR I MANIC IN FULL REMISSION 10/24/2012 JOVI SAWYER APRN 296.46 MO BIPOLAR I MANIC IN FULL REMISSION 10/24/2012 JOVI SAWYER APRN 296.46 MO BIPOLAR I MANIC IN FULL REMISSION 10/24/2012 AVA GUTIÉRREZ MD 296 .46 MO BIPOLAR I MANIC IN FULL REMISSION 10/24/2012 CHAZ MCDONALD DO K 296.46 MO BIPOLAR I MANIC IN FULL REMISSION 10/24/2012 CHAZ MCDONADL DO K 296.46 MO BIPOLAR I MANIC IN FULL REMISSION 10/24/2012 DEMI HELTON MD 296.4 6 MO BIPOLAR I MANIC IN FULL REMISSION 10/24/2012 MELISA DRAKE JR 296.46 MO BIPOLAR I MANIC IN FULL REMISSION 10/24/2012 DEMI HELTON MD 296.4 6 MO BIPOLAR I MANIC IN FULL REMISSION 10/24/2012 MELISA DRAKE JR 296.46 MO BIPOLAR I MANIC IN FULL REMISSION 10/24/2012 MELISA DRAKE JR 296.46 MO BIPOLAR I MANIC IN FULL REMISSION 10/24/2012 MELISA DRAKE JR 296.46 MO BIPOLAR I MANIC IN FULL REMISSION 10/24/2012 MELISA DRAKE JR 296.46 MO BIPOLAR I MANIC IN FULL REMISSION 10/24/2012 MELISA DRAKE JR 296.46 MO BIPOLAR I MANIC IN FULL REMISSION 10/24/2012 MELISA DRAKE JR 296.46 MO BIPOLAR I MANIC IN FULL REMISSION 10/24/2012 CHAZ MCDONALD DO K 296.46 MO BIPOLAR I MANIC IN FULL REMISSION 10/24/2012 MELISA DRAKE JR S 296.46 MO BIPOLAR I MANIC IN FULL REMISSION 10/24/2012 LINNETTE APRON TRIMMER, ISRRAEL R 296.46 MO BIPOLAR I MANIC IN FULL REMISSION 10/24/2012 LINNETTE MERAZN, ISRRAEL R 296.46 MO BIPOLAR I MANIC IN FULL REMISSION 10/24/2012 MELISA DRAKE JR S 296.46 MO BIPOLAR I MANIC IN FULL REMISSION 10/24/2012 MELISA DRAKE JR S 296.46 MO BIPOLAR I MANIC IN FULL REMISSION 01/15/2013 782.0 DIST URBANCE OF SKIN SENSATION 01/15/[address] BITE NONVENOMOUS OF OTHER MULTIPLE AND UNSPECIFIED SITES WITHOUT INFECTION 01/15/2013 ANEUDY GREENBERG DO F 782 .0 DISTURBANCE OF SKIN SENSATION 01/15/2013 ANEUDY GREENBERG DO F 919 .4 INSECT BITE NONVENOMOUS OF OTHER MULTIPLE AND UNSPECIFIED SITES WITHOUT INFECTION 01/15/2013 JOVI SAWYER APRN 782.0 DISTURBANCE OF SKIN SENSATION 01/15/2013 JOVI SAWYER APRN 919.4 INSECT BITE NONVENOMOUS OF OTHER MULTIPL E AND UNSPECIFIED SITES WITHOUT INFECTION 01/15/2013 CHAZ MCDONALD DO K 782.0 DISTURBANCE OF SKIN SENSATION 01/15/2013 CHAZ MCDONALD DO 919.4 INSECT BITE NONVENOMOUS OF OTHER MULTIPLE AND UNSPECIFIED SITES WITHOUT INFECTION 01/15/2013 JOVI SAWYER APRN 782.0 DISTURBANCE OF SKIN SENSATION 01/15/2013 JOVI SAWYER APRN 919.4 INSECT BITE NONVENOMOUS OF OTHER MULTIPL E AND UNSPECIFIED SITES WITHOUT INFECTION 01/15/2013 JOVI SAWYER APRN 782.0 DISTURBANCE OF SKIN SENSATION 01/15/2013 JOVI SAWYER APRN D 919.4 INSECT BITE NONVENOMOUS OF OTHER MULTIPL E AND UNSPECIFIED SITES WITHOUT INFECTION 01/15/2013 AVA GUTIÉRREZ MD 782 .0 DISTURBANCE OF SKIN SENSATION 01/15/2013 AVA GUTIÉRREZ MD 919 .4 INSECT BITE NONVENOMOUS OF OTHER MULTIPLE AND UNSPECIFIED SITES WITHOUT INFECTION 01/15/2013 CHAZ MCDONALD DO K 782.0 DISTURBANCE OF SKIN SENSATION 01/15/2013 MCDONALD DO, CHAZ K 919.4 INSECT BITE NONVENOMOUS OF OTHER MULTIPLE AND UNSPECIFIED SITES WITHOUT INFECTION 01/15/2013 MCDONALD DO, CHAZ K 782.0 DISTURBANCE OF SKIN SENSATION 01/15/2013 MCDONALD DO, CHAZ K 919.4 INSECT BITE NONVENOMOUS OF OTHER MULTIPLE AND UNSPECIFIED SITES WITHOUT INFECTION 01/15/2013 DEMI HELTON MD 782.0 DISTURBANCE OF SKIN SENSATION 01/15/2013 DEMI HELTON MD 919.4 INSECT BITE NONVENOMOUS OF OTHER MULTIPLE AND UNSPECIFIED SITES WITHOUT INFECTION 01/15/2013 MELISA DRAKE JR 782.0 DISTURBANCE OF SKIN SENSATION 01/15/2013 MELISA DRAKE JR 919.4 INSECT BITE NONVENOMOUS OF OTHER MULTIPL E AND UNSPECIFIED SITES WITHOUT INFECTION 01/15/2013 DEMI HELTON MD 782.0 DISTURBANCE OF SKIN SENSATION 01/15/2013 DEMI HELTON MD 919.4 INSECT BITE NONVENOMOUS OF OTHER MULTIPLE AND UNSPECIFIED SITES WITHOUT INFECTION 01/15/2013 MELISA DRAKE JR 782.0 DISTURBANCE OF SKIN SENSATION 01/15/2013 MELISA DRAKE JR 919.4 INSECT BITE NONVENOMOUS OF OTHER MULTIPL E AND UNSPECIFIED SITES WITHOUT INFECTION 01/15/2013 MELISA DRAKE JR 782.0 DISTURBANCE OF SKIN SENSATION 01/15/2013 MELISA DRAKE JR 919.4 INSECT BITE NONVENOMOUS OF OTHER MULTIPL E AND UNSPECIFIED SITES WITHOUT INFECTION 01/15/2013 MELISA DRAKE JR 782.0 DISTURBANCE OF SKIN SENSATION 01/15/2013 MELISA DRAKE JR 919.4 INSECT BITE NONVENOMOUS OF OTHER MULTIPL E AND UNSPECIFIED SITES WITHOUT INFECTION 01/15/2013 MELISA DRAKE JR 782.0 DISTURBANCE OF SKIN SENSATION 01/15/2013 MELISA DRAKE JR S 919.4 INSECT BITE NONVENOMOUS OF OTHER MULTIPL E AND UNSPECIFIED SITES WITHOUT INFECTION 01/15/2013 MELISA DRAKE JR 782.0 DISTURBANCE OF SKIN SENSATION 01/15/2013 MELISA DRAKE JR S 919.4 INSECT BITE NONVENOMOUS OF OTHER MULTIPL E AND UNSPECIFIED SITES WITHOUT INFECTION 01/15/2013 MELISA DRAKE JR 782.0 DISTURBANCE OF SKIN SENSATION 01/15/2013 MELISA DRAKE JR S 919.4 INSECT BITE NONVENOMOUS OF OTHER MULTIPL E AND UNSPECIFIED SITES WITHOUT INFECTION 01/15/2013 MCDONALD DO, CHAZ K 782.0 DISTURBANCE OF SKIN SENSATION 01/15/2013 MCDONALD DO, CHAZ K 919.4 INSECT BITE NONVENOMOUS OF OTHER MULTIPLE AND UNSPECIFIED SITES WITHOUT INFECTION 01/15/2013 MELISA DRAKE JR 782.0 DISTURBANCE OF SKIN SENSATION 01/15/2013 MELISA DRAKE JR 919.4 INSECT BITE NONVENOMOUS OF OTHER MULTIPL E AND UNSPECIFIED SITES WITHOUT INFECTION 01/15/2013 LINNETTE APRON TRIMMER, ISRRAEL R 782.0 DISTURBANCE OF SKIN SENSATION 01/15/2013 LINNETTE APRON TRIMMER, ISRRAEL R 919.4 INSECT BITE NONVENOMOUS OF OTHER MULTIPL E AND UNSPECIFIED SITES WITHOUT INFECTION 01/15/2013 LINNETTE APRON TRIMMER, ISRRAEL R 782.0 DISTURBANCE OF SKIN SENSATION 01/15/2013 LINNETTE APRON TRIMMER, ISRRAEL R 919.4 INSECT BITE NONVENOMOUS OF OTHER MULTIPL E AND UNSPECIFIED SITES WITHOUT INFECTION 01/15/2013 MELISA DRAKE JR 782.0 DISTURBANCE OF SKIN SENSATION 01/15/2013 MELISA DRAKE JR 919.4 INSECT BITE NONVENOMOUS OF OTHER MULTIPL E AND UNSPECIFIED SITES WITHOUT INFECTION 01/15/2013 MELISA DRAKE JR 782.0 DISTURBANCE OF SKIN SENSATION 01/15/2013 MELISA DRAKE JR 919.4 INSECT BITE NONVENOMOUS OF OTHER MULTIPL E AND UNSPECIFIED SITES WITHOUT INFECTION 04/02/2013 MCDONALD DO, CHAZ K 564.00 UNSPECIFIED CONSTIPATION 04/02/2013 JOVI SAWYER APRN 564.00 UNSPECIFIED CONSTIPATION 04/02/2013 JOVI SAWYER APRN 564.00 UNSPECIFIED CONSTIPATION 04/02/2013 AVA GUTIÉRREZ MD 564 .00 UNSPECIFIED CONSTIPATION 04/02/2013 MCDONALD DO, CHAZ K 564.00 UNSPECIFIED CONSTIPATION 04/02/2013 MCDONALD DO, CHAZ K 564.00 UNSPECIFIED CONSTIPATION 04/02/2013 DEMI HELTON MD 564.0 0 UNSPECIFIED CONSTIPATION 04/02/2013 MELISA DRAKE JR 564.00 UNSPECIFIED CONSTIPATION 04/02/2013 DEMI HELTON MD 564.0 0 UNSPECIFIED CONSTIPATION 04/02/2013 DRAKE JR, MELISA S 564.00 UNSPECIFIED CONSTIPATION 04/02/2013 DRAKE JR, MELISA S 564.00 UNSPECIFIED CONSTIPATION 04/02/2013 DRAKE JR, MELISA S 564.00 UNSPECIFIED CONSTIPATION 04/02/2013 DRAKE JR, MELISA S 564.00 UNSPECIFIED CONSTIPATION 04/02/2013 DRAKE JR, MELISA S 564.00 UNSPECIFIED CONSTIPATION 04/02/2013 NOELLE DIEZ, MELISA S 564.00 UNSPECIFIED CONSTIPATION 04/02/2013 CHAZ MCDONALD DO K 564.00 UNSPECIFIED CONSTIPATION 04/02/2013 DRAKE JR, MELISA S 564.00 UNSPECIFIED CONSTIPATION 04/02/2013 LINNETTE APRON TRIMMER, ISRRAEL R 564.00 UNSPECIFIED CONSTIPATION 04/02/2013 LINNETTE APRON TRIMMER, ISRRAEL R 564.00 UNSPECIFIED CONSTIPATION 04/02/2013 NOELLE DIEZ, MELISA S 564.00 UNSPECIFIED CONSTIPATION 04/02/2013 NOELLE DIEZ, MELISA S 564.00 UNSPECIFIED CONSTIPATION 05/15/2013 RA CASTRO MD Ot 305.1 TOBACCO USE DISORDER 05/15/2013 RA CASTRO MD Ot 309.81 POSTTRAUMATIC STRESS DISORDER 05/15/2013 RA CASTRO MD Ot 314.01 ATTN DEFICIT W HYPERACT 05/15/2013 RA CASTRO MD Ot 560.9 INTESTINAL OBSTRUCT NOS 05/15/2013 RA CASTRO MD Ot 564.00 UNSPEC CONSTIPATION 05/15/2013 RA CASTRO MD Ot 780.52 INSOMNIA, UNSPECIFIED 06/16/2013 GEOVANY TA MD Ot 564.00 UNSPEC CONSTIPATION 06/16/2013 GEOVANY TA MD Ot 789.07 ABDOMINAL PAIN, GENERALIZED 06/24/2013 CHAZ MCDONALD DO K 578.1 BLOOD IN STOOL 06/24/2013 CHAZ MCDONALD DO K 719.45 PAIN IN JOINT INVOLVING PELVIC REGION AND THIGH 06/24/2013 CHAZ MCDONALD DO K 578.1 BLOOD IN STOOL 06/24/2013 CHAZ MCDONALD DO K 719.45 PAIN IN JOINT INVOLVING PELVIC REGION AND THIGH 06/24/2013 DEMI HELTON MD 578.1 BLOOD IN STOOL 06/24/2013 DEMI HELTON MD 719.4 5 PAIN IN JOINT INVOLVING PELVIC REGION AND THIGH 06/24/2013 MELISA DRAKE JR 578.1 BLOOD IN STOOL 06/24/2013 MELISA DRAKE JR 719.45 PAIN IN JOINT INVOLVING PELVIC REGION AND THIGH 06/24/2013 DEMI HELTON MD 578.1 BLOOD IN STOOL 06/24/2013 DEMI HELTON MD 719.4 5 PAIN IN JOINT INVOLVING PELVIC REGION AND THIGH 06/24/2013 MELISA DRAKE JR 578.1 BLOOD IN STOOL 06/24/2013 MELISA DRAKE JR 719.45 PAIN IN JOINT INVOLVING PELVIC REGION AND THIGH 06/24/2013 MELISA DRAKE JR 578.1 BLOOD IN STOOL 06/24/2013 MELISA DRAKE JR 719.45 PAIN IN JOINT INVOLVING PELVIC REGION AND THIGH 06/24/2013 MELISA DRAKE JR 578.1 BLOOD IN STOOL 06/24/2013 MELISA DRAKE JR 719.45 PAIN IN JOINT INVOLVING PELVIC REGION AND THIGH 06/24/2013 MELISA DRAKE JR 578.1 BLOOD IN STOOL 06/24/2013 MELISA DRAKE JR 719.45 PAIN IN JOINT INVOLVING PELVIC REGION AND THIGH 06/24/2013 MELISA DRAKE JR 578.1 BLOOD IN STOOL 06/24/2013 MELISA DRAKE JR 719.45 PAIN IN JOINT INVOLVING PELVIC REGION AND THIGH 06/24/2013 MELISA DRAKE JR 578.1 BLOOD IN STOOL 06/24/2013 MELISA DRAKE JR 719.45 PAIN IN JOINT INVOLVING PELVIC REGION AND THIGH 06/24/2013 CHAZ MCDONALD DO K 578.1 BLOOD IN STOOL 06/24/2013 CHAZ MCDONALD DO 719.45 PAIN IN JOINT INVOLVING PELVIC REGION AND THIGH 06/24/2013 MELISA DRAKE JR 578.1 BLOOD IN STOOL 06/24/2013 MELISA DRAKE JR 719.45 PAIN IN JOINT INVOLVING PELVIC REGION AND THIGH 06/24/2013 LINNETTE APRON TRIMMER, ISRRAEL R 578.1 BLOOD IN STOOL 06/24/2013 LINNETTE APRON TRIMMER, ISRRAEL R 719.45 PAIN IN JOINT INVOLVING PELVIC REGION AND THIGH 06/24/2013 LINNETTE APRON TRIMMER, ISRRAEL R 578.1 BLOOD IN STOOL 06/24/2013 LINNETTE APRON TRIMMER ISRRAEL R 719.45 PAIN IN JOINT INVOLVING PELVIC REGION AND THIGH 06/24/2013 MELISA DRAKE JR 578.1 BLOOD IN STOOL 06/24/2013 MELISA DRAKE JR 719.45 PAIN IN JOINT INVOLVING PELVIC REGION AND THIGH 06/24/2013 MELISA DRAKE JR 578.1 BLOOD IN STOOL 06/24/2013 MELISA DRAKE JR 719.45 PAIN IN JOINT INVOLVING PELVIC REGION AND THIGH 06/28/2013 CHAZ MCDONALD DO 787.01 NAUSEA WITH VOMITING 06/28/2013 DEMI HELTON MD 787.0 1 NAUSEA WITH VOMITING 06/28/2013 MELISA DRAKE JR 787.01 NAUSEA WITH VOMITING 06/28/2013 DEMI HELTON MD 787.0 1 NAUSEA WITH VOMITING 06/28/2013 MELISA DRAKE JR 787.01 NAUSEA WITH VOMITING 06/28/2013 MELISA DRAKE JR 787.01 NAUSEA WITH VOMITING 06/28/2013 MELISA DRAKE JR 787.01 NAUSEA WITH VOMITING 06/28/2013 MELISA DRAKE JR 787.01 NAUSEA WITH VOMITING 06/28/2013 MELISA DRAKE JR 787.01 NAUSEA WITH VOMITING 06/28/2013 MELISA DRAKE JR 787.01 NAUSEA WITH VOMITING 06/28/2013 CHAZ MCDONALD DO 787.01 NAUSEA WITH VOMITING 06/28/2013 MELISA DRAKE JR 787.01 NAUSEA WITH VOMITING 06/28/2013 LINNETTE BLANKENSHIP ISRRAEL R 787.01 NAUSEA WITH VOMITING 06/28/2013 LINNETTE BLANKENSHIP ISRRAEL R 787.01 NAUSEA WITH VOMITING 06/28/2013 MELISA DRAKE JR 787.01 NAUSEA WITH VOMITING 06/28/2013 MELISA DRAKE JR 787.01 NAUSEA WITH VOMITING 07/01/2013 CHRISTAL BARRERA DO Ot 564.00 UNSPEC CONSTIPATION 07/01/2013 CHRISTAL BARRERA DO Ot 789.00 ABDOMINAL PAIN, UNSPECIFIED SITE 07/01/2013 CHRISTAL BARRERA DO Ot 564.00 UNSPEC CONSTIPATION 07/12/2013 DEMI HELTON MD 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 07/12/2013 MELISA DRAKE JR 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 07/12/2013 DEMI HELTON MD 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 07/12/2013 MELISA DRAKE JR 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 07/12/2013 MELISA DRAKE JR 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 07/12/2013 MELISA DRAKE JR 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94 RESTLESS LEGS SYNDROME (RLS) 10/28/2013 MELISA DRAKE JR 333.94 RESTLESS LEGS SYNDROME (RLS) 10/28/2013 MELISA DRAKE JR 333.94 RESTLESS LEGS SYNDROME (RLS) 10/28/2013 MELISA DRAKE JR 333.94 RESTLESS LEGS SYNDROME (RLS) 10/28/2013 CHAZ MCDONALD DO K 333.94 RESTLESS LEGS SYNDROME (RLS) 10/28/2013 MELISA DRAKE JR 333.94 RESTLESS LEGS SYNDROME (RLS) 10/28/2013 LINNETTE APRON TRIMMERCASTILLO HernándezINA R 333.94 RESTLESS LEGS SYNDROME (RLS) 10/28/2013 LINNETTE APRON TRIMMERCASTILLO HernándezINA R 333.94 RESTLESS LEGS SYNDROME (RLS) 10/28/2013 MELISA DRAKE JR 333.94 RESTLESS LEGS SYNDROME (RLS) 10/28/2013 MELISA DRAKE JR 333.94 RESTLESS LEGS SYNDROME (RLS) 04/25/2014 MCDONALD JAIME ORELLANAA K 477.9 ALLERGIC RHINITIS CAUSE UNSPECIFIED 04/25/2014 MCDONALD DO CHAZ K 783.1 ABNORMAL WEIGHT GAIN 04/25/2014 MELISA DRAKE JR 477.9 ALLERGIC RHINITIS CAUSE UNSPECIFIED 04/25/2014 MELISA DRAKE JR 783.1 ABNORMAL WEIGHT GAIN 04/25/2014 LINNETTE APRON TRIMMER, ISRRAEL R 477.9 ALLERGIC RHINITIS CAUSE UNSPECIFIED 04/25/2014 LINNETTE APRON TRIMMER, ISRRAEL R 783.1 ABNORMAL WEIGHT GAIN 04/25/2014 LINNETTE APRON TRIMMER, ISRRAEL R 477.9 ALLERGIC RHINITIS CAUSE UNSPECIFIED 04/25/2014 LINNETTE APRON TRIMMER, ISRRAEL R 783.1 ABNORMAL WEIGHT GAIN 04/25/2014 MELISA DRAKE JR S 477.9 ALLERGIC RHINITIS CAUSE UNSPECIFIED 04/25/2014 NOELLE DIEZ, MELISA S 783.1 ABNORMAL WEIGHT GAIN 04/25/2014 MELISA DRAKE JR S 477.9 ALLERGIC RHINITIS CAUSE UNSPECIFIED 04/25/2014 MELISA DRAKE JR S 783.1 ABNORMAL WEIGHT GAIN 07/31/2014 LINNETTE APRON TRIMMER, ISRRAEL R 786.2 COUGH 07/31/2014 LINNETTE APRON TRIMMER, ISRRAEL R 786.2 COUGH 07/31/2014 MELISA DRAKE JR S 786.2 COUGH 07/31/2014 MELISA DRAKE JR S 786.2 COUGH 08/08/2014 LINNETTE APRON TRIMMER, ISRRAEL R 558.9 GASTROENTERITIS NONINFECTIOUS 08/08/2014 MELISA DRAKE JR S 558.9 GASTROENTERITIS NONINFECTIOUS 08/08/2014 MELISA DRAKE JR S 558.9 GASTROENTERITIS NONINFECTIOUS 05/15/2015 HARISH GUADARRAMA DO Ot M47.812 06/03/2015 HARISH GUADARRAMA DO Ot M47.812 11/24/2015 HARISH GUADARRAMA DO Ot M25.512 PAIN IN LEFT SHOULDER 11/26/2015 HARISH GUADARRAMA DO Ot M25.512 PAIN IN LEFT SHOULDER 12/21/2015 HARISH GUADARRAMA DO Ot M25.512 PAIN IN LEFT SHOULDER 02/10/2016 MAIN GUADARRAMA MD Ot M47.816 SPONDYLOSIS W/O MYELOPATHY OR RADICULOPA 02/10/2016 MAIN GUADARRAMA MD Ot M47.816 SPONDYLOSIS W/O MYELOPATHY OR RADICULOPA 03/01/2016 MAIN GUADARRAMA MD Ot M47.816 SPONDYLOSIS W/O MYELOPATHY OR RADICULOPA 03/17/2016 LISANDRO CRANDALL DO Ot M54.6 PAIN IN THORACIC SPINE 04/08/2016 LISANDRO CRANDALL DO Ot M54.6 PAIN IN THORACIC SPINE 01/17/2017 DESIRAE DEVLIN MD Ot 719. 45 JOINT PAIN-PELVIS 01/17/2017 DESIRAE DEVLIN MD Ot 724. 2 LUMBAGO 01/17/2017 DESIRAE DEVLIN MD Ot 722. 52 LUMB/LUMBOSAC DISC DEGEN 01/17/2017 HARISH GUADARRAMA DO Ot M47.812 SPONDYLOSIS W/O MYELOPATHY OR RADICULOPA 01/17/2017 HARISH GUADARRAMA DO Ot M25.512 PAIN IN LEFT SHOULDER 01/17/2017 MAIN GUADARRAMA MD Ot M47.816 SPONDYLOSIS W/O MYELOPATHY OR RADICULOPA 01/17/2017 MATHEWTEJAL LISANDRO ORELLANA Ot M54.6 PAIN IN THORACIC SPINE 03/07/2017 OTHER, UNLISTED Ot F31.71 BIPOLAR DISORD, IN PARTIAL REMIS, MOST R 03/22/2017 HARRY MOBLEY, VITA Dorantes Ot F12.10 CANNABIS ABUSE, UNCOMPLICATED 03/22/2017 HARRY MOBLEY, VITA Dorantes Ot F17.210 NICOTINE DEPENDENCE, CIGARETTES, UNCOMPL 03/22/2017 HARRY MOBLEY, VITA Dorantes Ot F32.9 MAJOR DEPRESSIVE DISORDER, SINGLE EPISOD 03/22/2017 VITA MCDONALD MD Ot F41.9 ANXIETY DISORDER, UNSPECIFIED 03/22/2017 VITA MCDONALD MD Ot 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 03/22/2017 VITA MCDONALD MD Ot F90.9 ATTENTION-DEFICIT HYPERACTIVITY DISORDER 03/22/2017 HARRY MOBLEY, VITA Dorantes Ot I10 ESSENTIAL (PRIMARY) HYPERTENSION 03/22/2017 HARRY MOBLEY, VITA Dorantes Ot J44.9 CHRONIC OBSTRUCTIVE PULMONARY DISEASE, U 03/22/2017 HARRY MOBLEY, VITA Dorantes Ot R41.82 ALTERED MENTAL STATUS, UNSPECIFIED 03/22/2017 HARRY MOBLEY, VITA Dorantes Ot Z87.19 PERSONAL HISTORY OF OTHER DISEASES OF TH 03/24/2017 VITA MCDONALD MD Ot F12.10 CANNABIS ABUSE, UNCOMPLICATED 03/24/2017 VITA MCDONALD MD Ot F17.210 NICOTINE DEPENDENCE, CIGARETTES, UNCOMPL 03/24/2017 VITA MCDONALD MD Ot F32.9 MAJOR DEPRESSIVE DISORDER, SINGLE EPISOD 03/24/2017 VITA MCDONALD MD Ot F41.9 ANXIETY DISORDER, UNSPECIFIED 03/24/2017 VITA MCDONALD MD Ot 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 03/24/2017 VITA MCDONALD MD Ot F90.9 ATTENTION-DEFICIT HYPERACTIVITY DISORDER 03/24/2017 VITA MCDONALD MD Ot I10 ESSENTIAL (PRIMARY) HYPERTENSION 03/24/2017 VITA MCDONALD MD Ot J44.9 CHRONIC OBSTRUCTIVE PULMONARY DISEASE, U 03/24/2017 VITA MCDONALD MD Ot R41.82 ALTERED MENTAL STATUS, UNSPECIFIED 03/24/2017 VITA MCDONALD MD, Ot Z87.19 PERSONAL HISTORY OF OTHER DISEASES OF 04/06/2017 OTHER, UNLISTED Ot F31.71 BIPOLAR DISORD, IN PARTIAL REMIS, MOST R 08/08/2018 VITA MCDONALD MD, Ot F12.10 CANNABIS ABUSE, UNCOMPLICATED 08/08/2018 VITA MCDONALD MD Ot F32.9 MAJOR DEPRESSIVE DISORDER, SINGLE EPISOD 08/08/2018 VITA MCDONALD MD Ot F41.9 ANXIETY DISORDER, UNSPECIFIED 08/08/2018 VITA MCDONALD MD Ot F90.9 ATTENTION-DEFICIT HYPERACTIVITY DISORDER 08/08/2018 VITA MCDONALD MD Ot F98.8 OT BEHAV/EMOTN DISORD W ONSET USLY OCCU 08/08/2018 VITA MCDONALD MD, Ot I10 ESSENTIAL (PRIMARY) HYPERTENSION 08/08/2018 VITA MCDONALD MD, Ot J44.9 CHRONIC OBSTRUCTIVE PULMONARY DISEASE, U 08/08/2018 VITA MCDONALD MD Ot M54.5 LOW BACK PAIN 08/08/2018 VITA MCDONALD MD Ot Z77.22 CNTCT W AND EXPSR TO ENVIRON TOBACCO SMO 08/08/2018 VITA MCDONALD MD, Ot Z87.19 PERSONAL HISTORY OF OTHER DISEASES OF 08/08/2018 VITA MCDNOALD MD Ot Z88.8 ALLERGY STATUS TO OT DRUG/MEDS/BIOL SUB 08/10/2018 VITA MCDONALD MD Ot F12.10 CANNABIS ABUSE, UNCOMPLICATED 08/10/2018 VITA MCDONALD MD Ot F32.9 MAJOR DEPRESSIVE DISORDER, SINGLE EPISOD 08/10/2018 HARRY MOBLEY, VITA Dorantes Ot F41.9 ANXIETY DISORDER, UNSPECIFIED 08/10/2018 VITA MCDONALD MD Ot F90.9 ATTENTION-DEFICIT HYPERACTIVITY DISORDER 08/10/2018 VITA MCDONALD MD Ot F98.8 OTH BEHAV/EMOTN DISORD W ONSET USLY OCCU 08/10/2018 VITA MCDONALD MD Ot I10 ESSENTIAL (PRIMARY) HYPERTENSION 08/10/2018 VITA MCDONALD MD Ot J44.9 CHRONIC OBSTRUCTIVE PULMONARY DISEASE, U 08/10/2018 VITA MCDONALD MD Ot M54.5 LOW BACK PAIN 08/10/2018 HARRY MOBLEY, VITA Dorantes Ot Z77.22 CNTCT W AND EXPSR TO ENVIRON TOBACCO SMO 08/10/2018 VITA MCDONALD MD Ot Z87.19 PERSONAL HISTORY OF OTHER DISEASES OF TH 08/10/2018 HARRY MOBLEY, VITA Dorantes Ot Z88.8 ALLERGY STATUS TO OT DRUG/MEDS/BIOL SUB 09/12/2018 Ot E920.5 09/12/2018 Ot V01.79 09/12/2018 Ot V15.85 09/12/2018 Ot V58.69 09/12/2018 Ot V58.83 09/12/2018 Ot 724.2 09/12/2018 DESIRAE DEVLIN MD Ot 719. 45 JOINT PAIN-PELVIS 09/12/2018 DESIRAE DEVLIN MD Ot 724. 2 LUMBAGO 09/12/2018 DESIRAE DEVLIN MD Ot 722. 52 LUMB/LUMBOSAC DISC DEGEN 09/12/2018 HARISH GUADARRAMA DO Ot M47.812 SPONDYLOSIS W/O MYELOPATHY OR RADICULOPA 09/12/2018 HARISH GUADARRAMA DO Ot M25.512 PAIN IN LEFT SHOULDER 09/12/2018 MAIN GUADARRAMA MD Ot M47.816 SPONDYLOSIS W/O MYELOPATHY OR RADICULOPA 09/12/2018 LISANDRO CRANDALL DO Ot M54.6 PAIN IN THORACIC SPINE 09/12/2018 OTHER, UNLISTED Ot F31.71 BIPOLAR DISORD, IN PARTIAL REMIS, MOST R 09/12/2018 Ot E920.5 09/12/2018 Ot V01.79 09/12/2018 Ot V15.85 09/12/2018 Ot V58.69 09/12/2018 Ot V58.83 09/12/2018 Ot 724.2 09/12/2018 DESIRAE DEVLIN MD Ot 719. 45 JOINT PAIN-PELVIS 09/12/2018 DESIRAE DEVLIN MD Ot 724. 2 LUMBAGO 09/12/2018 DESIRAE DEVLIN MD Ot 722. 52 LUMB/LUMBOSAC DISC DEGEN 09/12/2018 HARISH GUADARRAMA DO Ot M47.812 SPONDYLOSIS W/O MYELOPATHY OR RADICULOPA 09/12/2018 HARISH GUADARRAMA DO Ot M25.512 PAIN IN LEFT SHOULDER 09/12/2018 MAIN GUADARRAMA MD Ot M47.816 SPONDYLOSIS W/O MYELOPATHY OR RADICULOPA 09/12/2018 LISANDRO CRANDALL DO Ot M54.6 PAIN IN THORACIC SPINE 09/12/2018 OTHER, UNLISTED Ot F31.71 BIPOLAR DISORD, IN PARTIAL REMIS, MOST R Procedures Code Description [place] [address] URIN E DRUG SCREEN (IN-HOUSE) 05/10/2012 88935 ROUT INE VENIPUNCTURE 06/07/2012 93730 PT/INR 06/08/2012 23398 MANJU MIN D 25-HYDROXY (D2,D3, TOTAL) 06/08/2012 04987 HIV- STATE LAB 06/08/2012 90756 HEP C PCR QUANT W/SERGIO 06/08/2012 99018 SPIR OMETRY 09/11/2012 76985 BRON CHODILATION PRE/POST 09/11/2012 79853 RESP IRATORY FLOW VOLUME LOOP 09/11/2012 77423 URIN E DRUG SCREEN (IN-HOUSE) 06/24/2013 LISANDRO EVANS 06/24/2013 OrthopMagno James 07/22/2013 Results Test Result Range Automated blood complete blood count (he mogram) panel - 01/17/17 10:14 Blood leukocytes automated count (number/volume) 10.2 10*3/uL 4.3-11.0 Blood erythrocytes automated count (number/volume) 4.64 10*6/uL 4.35-5.85 Venous blood hemoglobin measurement (mass/volume) 14.8 g/dL 11.5-16.0 Blood hematocrit (volume fraction) 44 % 35-52 Automated erythrocyte mean corpuscular volume 95 [ foz_us] 80-99 Automated erythrocyte mean corpuscular h emoglobin (mass per erythrocyte) 32 pg 25-34 Automated erythrocyte mean corpuscular h emoglobin concentration measurement (mass/volume) 34 g/dL 32-36 Automated erythrocyte distribution width ratio 13. 0 % 10.0- 14.5 Automated blood platelet count (count/volume) 377 10*3/uL 130-400 Automated blood platelet mean volume measurement 9.2 [foz_us] 7.4-10.4 Comprehensive metabolic panel - 01/17/17 10:14 Serum or plasma sodium measurement (moles/volume) 137 mmol/L 135-145 Serum or plasma potassium measurement (moles/volume) 4.4 mmol/L 3.6-5.0 Serum or plasma chloride measurement (moles/volume) 108 mmol/L 98-107 Carbon dioxide 21 mmol/L 21-32 Serum or plasma anion gap determination (moles/volume) 8 mmol/L 5-14 Serum or plasma urea nitrogen measurement (mass/volume ) 24 mg/dL 7-18 Serum or plasma creatinine measurement (mass/volume) 0.77 mg/dL 0.60-1.30 Serum or plasma urea nitrogen/creatinine mass ratio 31 NRG Serum or plasma creatinine measurement w ith calculation of estimated glomerular filtration rate > NRG Serum or plasma glucose measurement (mass/volume) 92 mg/dL 70-105 Serum or plasma calcium measurement (mass/volume) 9.5 mg/dL 8.5-10.1 Serum or plasma total bilirubin measurement (mass/volu me) 0.2 mg/dL 0.1-1.0 Serum or plasma alkaline phosphatase elton surement (enzymatic activity/volume) 88 U/L 40-136 Serum or plasma aspartate aminotransfera se measurement (enzymatic activity/volume) 23 U/L 5-34 Serum or plasma alanine aminotransferase measurement (enzymatic activity/volume) 34 U/L 0-55 Serum or plasma protein measurement (mass/volume) 7.0 g/dL 6.4-8.2 Serum or plasma albumin measurement (mass/volume) 4.1 g/dL 3.2-4.5 Lipid 1996 panel - 01/17/17 10:14 Serum or plasma triglyceride measurement (mass/volume) 150 mg/dL <150 Serum or plasma cholesterol measurement (mass/volume) 164 mg/dL < 200 Serum or plasma cholesterol in HDL measurement (mass/v olume) 50 mg/dL 40-60 Cholesterol in LDL [mass/volume] in serum or plasma by direct assay 46 mg/dL 1-129 Serum or plasma cholesterol in VLDL measurement (mass/ volume) 30 mg/dL 5-40 Hemoglobin A1c - 01/17/17 10:14 Hemoglobin A1c 5.5 % 4.5-6.2 Complete blood count (CBC) with automate d white blood cell (WBC) differential - 03/22/17 06:20 Blood leukocytes automated count (number/volume) 11.9 10*3/uL 4.3-11.0 Blood erythrocytes automated count (number/volume) 4.55 10*6/uL 4.35-5.85 Venous blood hemoglobin measurement (mass/volume) 14.6 g/dL 11.5-16.0 Blood hematocrit (volume fraction) 42 % 35-52 Automated erythrocyte mean corpuscular volume 93 [ foz_us] 80-99 Automated erythrocyte mean corpuscular h emoglobin (mass per erythrocyte) 32 pg 25-34 Automated erythrocyte mean corpuscular h emoglobin concentration measurement (mass/volume) 35 g/dL 32-36 Automated erythrocyte distribution width ratio 12. 9 % 10.0- 14.5 Automated blood platelet count (count/volume) 434 10*3/uL 130-400 Automated blood platelet mean volume measurement 9.1 [foz_us] 7.4-10.4 Automated blood neutrophils/100 leukocytes 59 % 42-75 Automated blood lymphocytes/100 leukocytes 32 % 12-44 Blood monocytes/100 leukocytes 8 % 0-12 Automated blood eosinophils/100 leukocytes 1 % 0-10 Automated blood basophils/100 leukocytes 0 % 0-10 Blood neutrophils automated count (number/volume) 7.0 10*3 1.8-7.8 Blood lymphocytes automated count (number/volume) 3.8 10*3 1.0-4.0 Blood monocytes automated count (number/volume) 0. 9 10*3 0.0-1.0 Automated eosinophil count 0.1 10*3/uL 0 .0-0.3 Automated blood basophil count (count/volume) 0.1 10*3/uL 0.0-0.1 Comprehensive metabolic panel - 03/22/17 06:20 Serum or plasma sodium measurement (moles/volume) 136 mmol/L 135-145 Serum or plasma potassium measurement (moles/volume) 4.6 mmol/L 3.6-5.0 Serum or plasma chloride measurement (moles/volume) 105 mmol/L 98-107 Carbon dioxide 19 mmol/L 21-32 Serum or plasma anion gap determination (moles/volume) 12 mmol/L 5-14 Serum or plasma urea nitrogen measurement (mass/volume ) 20 mg/dL 7-18 Serum or plasma creatinine measurement (mass/volume) 0.85 mg/dL 0.60-1.30 Serum or plasma urea nitrogen/creatinine mass ratio 24 NRG Serum or plasma creatinine measurement w ith calculation of estimated glomerular filtration rate > NRG Serum or plasma glucose measurement (mass/volume) 126 mg/dL 70-105 Serum or plasma calcium measurement (mass/volume) 10.0 mg/dL 8.5-10.1 Serum or plasma total bilirubin measurement (mass/volu me) 0.2 mg/dL 0.1-1.0 Serum or plasma alkaline phosphatase elton surement (enzymatic activity/volume) 108 U/L 40-136 Serum or plasma aspartate aminotransfera se measurement (enzymatic activity/volume) 20 U/L 5-34 Serum or plasma alanine aminotransferase measurement (enzymatic activity/volume) 31 U/L 0-55 Serum or plasma protein measurement (mass/volume) 7.2 g/dL 6.4-8.2 Serum or plasma albumin measurement (mass/volume) 4.1 g/dL 3.2-4.5 Serum or plasma thyrotropin measurement by detection limit <=0.05 miu/l (units/volume) - 03/22/17 06:20 Serum or plasma thyrotropin measurement by detection limit <=0.05 miu/l (units/volume) 2.53 u[iU]/mL 0.35-4.94 Serum or plasma salicylates measurement (mass/volume) - 03/22/17 06:20 Serum or plasma salicylates measurement (mass/volume) < mg/dL 5.0-20.0 Serum or plasma acetaminophen measuremen t (mass/volume) - 09/20/17 06:20 Serum or plasma acetaminophen measurement (mass/volume ) < ug/mL 10-30 Serum or plasma ethanol measurement (mas s/volume) - 03/22/17 06:20 Serum or plasma ethanol measurement (mass/volume) < mg/dL <10 Urine drug screening test - 03/22/17 06: 34 Urine phencyclidine detection by screening method NEGATIVE NEGATIVE Urine benzodiazepines detection by screening method POSITIVE NEGATIVE Urine cocaine detection NEGATIVE NEGATI VE Urine amphetamines detection by screening method N EGATIVE NEGATIVE Urine methamphetamine detection by screening method NEGATIVE NEGATIVE Urine cannabinoids detection by screening method N EGATIVE NEGATIVE Urine opiates detection by screening method NEGATI VE NEGATIVE Urine barbiturates detection NEGATIVE N EGATIVE Screening urine tricyclic antidepressants detection POSITIVE NEGATIVE Urine methadone detection by screening method NEGA TIVE NEGATIVE Urine oxycodone detection NEGATIVE NEGA TIVE Urine propoxyphene detection NEGATIVE N EGATIVE Complete urinalysis with reflex to cultu re - 03/22/17 06:34 Urine color determination YELLOW NRG Urine clarity determination SLIGHTLY CLOUDY NRG Urine pH measurement by test strip 5 5-9 Specific gravity of urine by test strip 1.010 1.016-1.022 Urine protein assay by test strip, semi-quantitative NEGATIVE NEGATIVE Urine glucose detection by automated test strip NE GATIVE NEGATIVE Erythrocytes detection in urine sediment by light micr oscopy NEGATIVE NEGATIVE Urine ketones detection by automated test strip NE GATIVE NEGATIVE Urine nitrite detection by test strip NEGATIVE NEGATIVE Urine total bilirubin detection by test strip NEGA TIVE NEGATIVE Urine urobilinogen measurement by automated test strip (mass/volume) NORMAL NORMAL Urine leukocyte esterase detection by dipstick 2+ NEGATIVE Automated urine sediment erythrocyte cou nt by microscopy (number/high power field) NONE NRG Automated urine sediment leukocyte count by microscopy (number/high power field) [HPF] NRG Bacteria detection in urine sediment by light microsco py TRACE NRG Squamous epithelial cells detection in u rine sediment by light microscopy 5-10 NRG Crystals detection in urine sediment by light microsco py NONE NRG Casts detection in urine sediment by light microscopy NONE NRG Mucus detection in urine sediment by light microscopy NEGATIVE NRG Complete urinalysis with reflex to culture NO NRG PDM - 09 PANEL (PROFILE 1) - 10/26/17 09 :56 Prescribed Drug 1 Adderall(TM) NRG Creatinine 14.2 mg/dL > or = 20.0 pH 6.45 4.5 - 9.0 Oxidant NEGATIVE mcg/mL <200 Amphetamines NEGATIVE ng/mL <500 medMATCH Amphetamines INCONSISTENT NRG Benzodiazepines NEGATIVE CONFIRMED ng/mL <100 Marijuana Metabolite NEGATIVE ng/mL <20 medMATCH Marijuana Metab CONSISTENT NRG Cocaine Metabolite NEGATIVE ng/mL <150 medMATCH Cocaine Metab CONSISTENT NRG Opiates NEGATIVE ng/mL <100 medMATCH Opiates CONSISTENT NRG Oxycodone NEGATIVE ng/mL <100 medMATCH Oxycodone CONSISTENT NRG COMMENT NRG Alphahydroxyalprazolam NEGATIVE ng/mL <25 medMATCH aOH alprazolam CONSISTENT NRG Alphahydroxymidazolam NEGATIVE ng/mL < 50 medMATCH aOH midazolam CONSISTENT NRG Alphahydroxytriazolam NEGATIVE ng/mL < 50 medMATCH aOH triazolam CONSISTENT NRG Aminoclonazepam NEGATIVE ng/mL <25 medMATCH Aminoclonazepam CONSISTENT NRG Hydroxyethylflurazepam NEGATIVE ng/mL <50 medMATCH OH,Et flurazepam CONSISTENT NR G Lorazepam NEGATIVE ng/mL <50 medMATCH Lorazepam CONSISTENT NRG Nordiazepam NEGATIVE ng/mL <50 medMATCH Nordiazepam INCONSISTENT NRG Oxazepam NEGATIVE ng/mL <50 medMATCH Oxazepam INCONSISTENT NRG Temazepam NEGATIVE ng/mL <50 medMATCH Temazepam INCONSISTENT NRG Prescribed Drug 2 Valium(TM) NRG Specific Gower 1.005 > or = 1.003 Barbiturates NEGATIVE ng/mL <300 medMATCH Barbiturates CONSISTENT NRG Methadone Metabolite NEGATIVE ng/mL <100 medMATCH Methadone Metab CONSISTENT NRG Phencyclidine NEGATIVE ng/mL <25 medMATCH Phencyclidine CONSISTENT NRG CMP - 01/25/18 09:42 GLUCOSE 104 mg/dL 65-99 UREA NITROGEN (BUN) 23 mg/dL 7-25 CREATININE 1.03 mg/dL 0.50-0.99 eGFR NON-AFR. M[place]AN 59 mL/min/1.73m2 > OR = 60 eGFR 68 mL/min/1.73m2 > OR = 60 BUN/CREATININE RATIO 22 (calc) 6-22 SODIUM 136 mmol/L 135-146 POTASSIUM 4.0 mmol/L 3.5-5.3 CHLORIDE 101 mmol/L 98-110 CARBON DIOXIDE 26 mmol/L 20-31 CALCIUM 10.0 mg/dL 8.6-10.4 PROTEIN, TOTAL 7.5 g/dL 6.1-8.1 ALBUMIN 4.7 g/dL 3.6-5.1 GLOBULIN 2.8 g/dL (calc) 1.9-3.7 ALBUMIN/GLOBULIN RATIO 1.7 (calc) 1.0-2. 5 BILIRUBIN, TOTAL 0.4 mg/dL 0.2-1.2 ALKALINE PHOSPHATASE 106 U/L 33-130 AST 26 U/L 10-35 ALT 38 U/L 6-29 Encounters ACCT No. Visit Date/Time Discharge Status Pt. Type Provider Facility Loc./Unit Complaint [id number] 01/07/2019 10:20:00 01/07/2019 23:59: 59 CLS Outpatient JAJA HALE APRN [facility] [id number] 01/25/2018 09:00:00 Document Registration [id number] 10/26/2017 09:20:00 Document Registration [id number] 08/08/2018 06:26:00 019 06:26:00 CAN Emergency ELMER INGRAM MD [facility] ER BACK PAIN [id number] 08/08/2018 05:35:00 019 06:15:00 DIS Emergency VITA MCDONALD MD [facility] ER BACK PAIN [id number] 03/22/2017 05:54:00 017 07:38:00 DIS Emergency VITA MCDONALD MD [facility] ER PSYCH-PT THINKS SHE IS BEING POISONED [id number] 01/17/2017 09:41:00 017 23:59:59 CLS Outpatient OTHER, UNLISTED V ia [facility] LAB Z79.899, F31.71 [id number] 03/16/2016 13:09:00 016 23:59:59 CLS Outpatient LISANDRO CRANDALL DO [facility] RAD THORACIC PAIN [id number] 02/09/2016 08:01:00 016 23:59:59 CLS Outpatient MAIN GUADARRAMA MD [facility] RAD M54.10 [id number] 11/24/2015 12:57:00 016 23:59:59 CLS Outpatient HARISH GUADARRAMA DO [facility] RAD LEFT SHOULDER PAIN [id number] 05/14/2015 08:33:00 23:59:59 CLS Outpatient HARISH GUADARRAMA DO [facility] RAD CERVIAL SPONDYLOSIS [id number] 02/13/2014 13:25:00 23:59:59 CLS Outpatient DESIRAE DEVLIN MD [facility] RAD DDD [id number] 12/02/2013 14:36:00 23:59:59 CLS Outpatient DESIRAE DEVLIN MD [facility] RAD LUMBAGO,BILATERAL HIP P AIN [id number] 07/01/2013 12:17:00 15:55:00 DIS Outpatient CHRISTAL BARRERA DO, V [facility] 4THo CONSTIPATION [id number] 07/01/2013 10:46:00 13:23:00 DIS Emergency CHRISTAL BARRERA DO a [facility] ER ABD PAIN/CONSTIPATION [id number] 06/16/2013 19:30:00 23:39:00 DIS Emergency GEOVANY TA MD [facility] ER ABD PAIN [id number] 05/12/2013 22:00:00 14:25:00 DIS Inpatient RA CASTRO MD [facility] SURGICAL SMALL BOWEL OBSTRUCTION [id number] 09/12/2018 08:53:00 Document Registration [id number] 09/12/2018 08:53:00 Document Registration [id number] 09/12/2018 08:53:00 Document Registration [id number] 09/12/2018 08:53:00 Document Registration [id number] 09/12/2018 08:53:00 Document Registration [id number] 09/12/2018 08:53:00 Document Registration [id number] 01/17/2017 09:47:00 Document Registration [id number] 02/22/2012 20:01:00 Document Registration [id number] 01/17/2012 15:23:00 Document Registration [id number] 01/15/2012 07:57:00 Document Registration [id number] 01/14/2012 17:35:00 Document Registration [id number] 06/20/2010 02:46:00 Document Registration [id number] 05/18/2010 06:58:00 Document Registration [id number] 05/11/2010 20:57:00 Document Registration [id number] 03/21/2010 17:00:00 Document Registration [id number] 01/24/2010 21:20:00 Document Registration [id number] 10/09/2008 11:15:00 Document Registration [id number] 04/14/2008 07:44:00 Document Registration [id number] 10/13/2014 12:37:00 10/13/2014 23:59: 59 CLS Outpatient MELISA DRAKE JR [id number] 08/25/2014 12:19:00 08/25/2014 23:59: 59 CLS Outpatient MELISA DRAKE JR [id number] 07/31/2014 14:03:00 07/31/2014 23:59: 59 CLS Outpatient ISRRAEL ANGLIN APRN [id number] 07/31/2014 14:03:00 07/31/2014 23:59: 59 CLS Outpatient ISRRAEL ANGLIN APRN [id number] 06/16/2014 13:54:00 06/16/2014 23:59: 59 CLS Outpatient MELISA DRAKE JR [id number] 04/25/2014 15:11:00 04/25/2014 23:59: 59 CLS Outpatient HARRY ORELLANA CHAZ Lanie [id number] 03/31/2014 13:04:00 03/31/2014 23:59: 59 CLS Outpatient MELISA DRAKE JR [id number] 12/30/2013 12:55:00 12/30/2013 23:59: 59 CLS Outpatient MELISA DRAKE JR [id number] 12/30/2013 12:55:00 12/30/2013 23:59: 59 CLS Outpatient MELISA DRAKE JR [id number] 10/28/2013 13:48:00 10/28/2013 23:59: 59 CLS Outpatient MELISA DRAKE JR [id number] 10/28/2013 13:48:00 10/28/2013 23:59: 59 CLS Outpatient MELISA DRAKE JR [id number] 08/16/2013 10:57:00 08/16/2013 23:59: 59 CLS Outpatient DEMI HELTON MD [id number] 08/16/2013 10:57:00 08/16/2013 23:59: 59 CLS Outpatient MELISA DRAEK JR [id number] 07/12/2013 09:32:00 07/12/2013 23:59: 59 CLS Outpatient DEMI HELTON MD [id number] 07/12/2013 09:32:00 07/12/2013 23:59: 59 CLS Outpatient MELISA DRAKE JR [id number] 06/28/2013 11:17:00 06/28/2013 23:59: 59 CLS Outpatient CHAZ MCDONALD DO [id number] 06/24/2013 18:41:00 06/24/2013 23:59: 59 CLS Outpatient CHAZ MCDONALD DO [id number] 05/28/2013 10:49:00 05/28/2013 23:59: 59 CLS Outpatient AVA GUTIÉRREZ MD [id number] 04/16/2013 14:40:00 04/16/2013 23:59: 59 CLS Outpatient JOVI SAWYER APRN [id number] 04/16/2013 14:40:00 04/16/2013 23:59: 59 CLS Outpatient JOVI SAWYER APRN [id number] 04/02/2013 10:16:00 04/02/2013 23:59: 59 CLS Outpatient CHAZ MCDONALD DO [id number] 03/28/2013 13:09:00 03/28/2013 23:59: 59 CLS Outpatient JOVI SAWYER APRN [id number] 02/18/2013 12:24:00 02/18/2013 23:59: 59 CLS Outpatient ANEUDY GREENBERG DO [id number] 09/27/2012 08:09:00 09/27/2012 23:59: 59 CLS Outpatient [id number] 09/11/2012 10:01:00 09/11/2012 23:59: 59 CLS Outpatient CHAZ MCDONALD DO [id number] 06/14/2012 09:13:00 06/14/2012 23:59: 59 CLS Outpatient ANEUDY GREENBERG DO [id number] 06/07/2012 09:40:00 06/07/2012 23:59: 59 CLS Outpatient ANEUDY GREENBERG DO [id number] 02/14/2012 00:00:00 02/14/2012 23:59:5 9 CLS Outpatient ANEUDY GREENBERG DO [id number] 01/15/2013 14:57:00 Document Registration [id number] 12/17/2012 12:00:00 Document Registration [id number] 10/24/2012 11:35:00 Document Registration
[2020-01-25] MEDS ORDERED: HYDR-700 PO (14:20)
[2020-01-25 14:30] VITALS: BP 138/64
== END 2020-01-25 14:29 | disposition home or self-care (01) ==
LOC: EDUNIT# 12:16 → ER 12:18
DX: Z76.0 Encounter for issue of repeat prescription (principal); K59.09 Other constipation; G89.29 Other chronic pain; M54.9 Dorsalgia, unspecified; F32.9 Major depressive disorder, single episode, unspecified; F41.9 Anxiety disorder, unspecified; I10 Essential (primary) hypertension; Z88.8 Allergy status to other drugs, medicaments and biological substances; Z77.22 Contact with and (suspected) exposure to environmental tobacco smoke (acute) (chronic)
CPT/HCPCS: 99281

== ENCOUNTER 2021-09-20 11:37 | Emergency (ER) | payer MEDICARE, OTHER ==
[~2021-09-20] VITALS: Ht 175 cm; Wt 90.7 kg
[~2021-09-20 11:37] MED LIST changes: +HYDR-700 PO; +QUET400T54 PO
[2021-09-20] MEDS ORDERED: KETOROLAC 60 MG/2 ML VIAL IM ONE (12:00)
--- NOTE | 2021-09-20 12:05 | ED Back Pain ---
General Chief Complaint: Hip/Pelvic Problems Stated Complaint: FALL - R HIP / LEG PAIN Source of Information: Patient Exam Limitations: Physical Impairments ([place]) History of Present Illness Date Seen by Provider: Sep 20, 2021 Time Seen by Provider: 11:45 Initial Comments Patient ER by SHANON from home with chief complaint that 13 days ago she had a fall at the [facility] when she was sitting on a chair that broke from underneath her and she landed on her spinal stimulator on the right side. She is having pain radiating down her left buttock. No numbness, no loss control of bowel or bladder, no swelling. She uses her gabapentin 400 mg 4 times a day without help. She is not on NSAIDs. She does not have a history of using blood thinners or heart disease. She denies striking her head nor loss of consciousness. She is concerned because the pain has lasted so long. Her back surgeon is Dr. Olivera. Allergies and Home Medications Allergies Coded Allergies: haloperidol (Unverified Allergy, Intermediate, 04/23/09) alcohol (Unverified Adverse Reaction, Unknown, "FLIP OUT", 09/20/21) Patient Home Medication List Home Medication List Reviewed: Yes Hydroxyzine HCl (Hydroxyzine HCl) 25 Mg Tablet, 25 MG PO Q4H PRN for ANXIETY Prescribed by: MASTER GILMORE on 01/25/20 1420 Polyethylene Glycol (Miralax Btl) 119 Gm Btl, 0 PO DAILY Prescribed by: GEOVANY TA on 06/16/13 2332 Quetiapine Fumarate (Seroquel) 400 Mg Tablet, 800 MG PO HS, (Reported) Entered as Reported by: PAULINE FAIRBANKS on 05/13/13 0835 Quetiapine Fumarate (Quetiapine Fumarate ER) 400 Mg Tab.er.24h, 800 MG PO HS Prescribed by: MASTER GILMORE on 01/25/20 1322 Tramadol Hcl (Tramadol Hcl) 50 Mg Tablet, 50 MG PO Q6H Prescribed by: GEOVANY TA on 06/16/13 2331 Review of Systems Constitutional: No chills, No diaphoresis EENTM: No ear discharge, No ear pain Respiratory: No short of breath Cardiovascular: No chest pain, No palpitations Gastrointestinal: No abdominal pain, No nausea Genitourinary: No discharge, No dysuria, No frequency, No hematuria Musculoskeletal: see HPI, back pain All Other Systems Reviewed Negative Unless Noted: Yes Past Qwlfpgc-Dciuvu-Vlsdak Hx Patient Social History Tobacco Use?: No Use of E-Cig and/or Vaping dev: No Substance use?: No Seasonal Allergies Seasonal Allergies: No Past Medical History Surgeries: Yes Orthopedic Respiratory: Yes COPD Cardiac: Yes Hypertension Neurological: No COMPENSATION/BENEFITS SPECIALIST History: Menopausal Genitourinary: No Gastrointestinal: Yes Obstructive Bowel, Chronic Constipation Musculoskeletal: Yes (RESTLESS LEG) Chronic Back Pain Endocrine: No HEENT: Yes Hearing Impairment: Hard of Hearing Cancer: No Psychosocial: Yes (EXTENSIVE PSYCH ISSUES, POLYSUBSTANCE ABUSE. ) ADD/ADHD, Anxiety, Depression Integumentary: No Blood Disorders: No Adverse Reaction/Blood Tranf: No Family Medical History History of drug abuse Psychotic disorder Psychiatric Problems Physical Exam Vital Signs Vital Signs - First Documented 09/20/21 12:01 Temp 36.0 Pulse 96 Resp 18 B/P (MAP) 146/94 (111) Pulse Ox 95 Capillary Refill : Height, Weight, BMI Height: 5'8.00" Weight: 170lbs. 0.0oz. 77.000782va; 30.00 BMI Method:Stated General Appearance: No Apparent Distress, WD/WN HEENT: PERRL/EOMI, Pharynx Normal, Moist Mucous Membranes Neck: Full Range of Motion, Normal Inspection Cardiovascular: Regular Rate, Rhythm, Normal Peripheral Pulses Respiratory: No Accessory Muscle Use, No Respiratory Distress Back: Normal Inspection, Vertebral Tenderness (Midline tenderness without step- off or crepitus over L3-L4-L5 and S1. Tenderness to palpation laterally, left side over the low thoracic and lumbar spine.) Extremity: Normal Capillary Refill, Normal Inspection, No Pedal Edema Neurologic/Psychiatric: Alert, Oriented x3, No Motor/Sensory Deficits Skin: Normal Color, Warm/Dry Progress/Results/Core Measures Results/Orders My Orders Orders - ELMER INGRAM Ct Thoracic/Lumbar Spine Wo (09/20/21 11:57) Ketorolac Injection (Toradol Injection) (09/20/21 12:00) Medications Given in ED Current Medications Medications Dose Ordered Sig/Toshia Route Start Time Stop Time Status Last Admin Dose Admin Ketorolac Tromethamine 60 mg ONCE ONCE IM 09/20/21 12:00 09/20/21 12:01 DC 09/20/21 12:13 60 MG Vital Signs/I&O 09/20/21 12:01 Temp 36.0 Pulse 96 Resp 18 B/P (MAP) 146/94 (111) Pulse Ox 95 Progress Progress Note : Time: 12:[address] of the thoracolumbar spine to rule out vertebral fracture. Toradol for pain. Diagnostic Imaging Diagonstic Imaging: CT Plain Films/CT/US/NM/MRI: other (Thoracolumbar spine) Comments [facility] [place] NAME: MELISSA GARRIDO [facility] REC#: [id number] PT STATUS: REG ER : 1955 PHYSICIAN: ELMER INGRAM MD ADMIT DATE: 09/20/21/ER Draft Date of Exam:09/20/21 CT THORACIC/LUMBAR SPINE WO PROCEDURE: CT thoracic and lumbar spine without contrast. TECHNIQUE: Multiple contiguous axial images were obtained through the thoracic and lumbar spine without the use of intravenous contrast. Sagittal and coronal reformations were then performed. All CT scans use one or more of the following dose optimizing techniques: automated exposure control, MA and/or KvP adjustment based on a patient size and exam type, or iterative reconstruction. INDICATION: Fall with back pain as well as left hip pain and leg pain. FINDINGS: CT THORACIC: There is normal thoracic kyphotic curvature. Vertebral body heights are maintained. No acute compression fracture is seen. There is a spinal cord paddle stimulator noted in the posterior spinal canal at the T8-T9 level. There is generalized thoracic spondylosis. No acute bony abnormality is detected. Paraspinous tissues are unremarkable. IMPRESSION: Thoracic spondylosis. No acute bony abnormality is identified. CT LUMBAR SPINE: Curvature of the lumbar spine is normal. There is minimal anterolisthesis of L4 on L5. Degenerative disc disease at L4-L5 level is noted with disc space narrowing and marginal spurring. There are fairly significant hypertrophic facet changes at L4-L5 level as well. No fractures are identified. The paraspinous tissues are unremarkable. IMPRESSION: Lower lumbar spondylosis and facet arthropathy with L4-L5 spondylolisthesis. No acute bony abnormality is detected. Dictated on workstation # [id number] Dict: 09/20/21 1237 Trans: 09/20/21 1245 [id number] Interpreted by: DEWAYNE OLIVAREZ MD Electronically signed by: Reviewed: Reviewed by Me Departure Impression Primary Impression: Fall Qualified Codes: W19.XXXA - Unspecified fall, initial encounter Additional Impression: Back pain at L4-L5 level Disposition: 01 HOME, SELF-CARE Condition: Stable Departure-Patient Inst. Decision time for Depature: 13:30 Referrals: [facility] (PCP/Family) Primary Care Physician Patient Instructions: Contusion (DC), Low Back Pain ED Add. Discharge Instructions: Drink plenty of fluids. Tylenol 1000 mg every 8 hours as necessary for pain. Topical creams such as icy hot, capsaicin oil, Blue emu etc. Ketorolac 1 tablet every 8 hours with a maximum of 3 tablets in 24 hours as needed for breakthrough pain. Take your Seroquel as directed and keep your follow-up appointment later in the week. Take the steroid Dosepak as directed. Start it today when you pick it up. All discharge instructions reviewed with patient and/or family. Voiced understanding. Scripts Methylprednisolone (Methylprednisolone Dose Pack) 4 Mg Tab.ds.pk 4 MG PO UD for 6 Days, #21 PKG 0 Refills PER DOSE PACK INSTRUCTIONS Prov: ELMER INGRAM 09/20/21 Ketorolac Tromethamine (Ketorolac Tromethamine) 10 Mg Tablet 10 MG PO Q8H PRN for PAIN-BREAKTHROUGH for 3 Days, #10 TAB 0 Refills Prov: ELMER INGRAM 09/20/21 Quetiapine Fumarate (Seroquel) 400 Mg Tablet 800 MG PO HS for 7 Days, #14 TAB 0 Refills Prov: ELMER INGRAM 09/20/21 ELMER INGRAM Sep 20, 2021 12:05
--- NOTE | 2021-09-20 12:45 | Diagnostic Imaging Report ---
PROCEDURE: CT thoracic and lumbar spine without contrast. TECHNIQUE: Multiple contiguous axial images were obtained through the thoracic and lumbar spine without the use of intravenous contrast. Sagittal and coronal reformations were then performed. All CT scans use one or more of the following dose optimizing techniques: automated exposure control, MA and/or KvP adjustment based on a patient size and exam type, or iterative reconstruction. INDICATION: Fall with back pain as well as left hip pain and leg pain. FINDINGS: CT THORACIC: There is normal thoracic kyphotic curvature. Vertebral body heights are maintained. No acute compression fracture is seen. There is a spinal cord paddle stimulator noted in the posterior spinal canal at the T8-T9 level. There is generalized thoracic spondylosis. No acute bony abnormality is detected. Paraspinous tissues are unremarkable. IMPRESSION: Thoracic spondylosis. No acute bony abnormality is identified. CT LUMBAR SPINE: Curvature of the lumbar spine is normal. There is minimal anterolisthesis of L4 on L5. Degenerative disc disease at L4-L5 level is noted with disc space narrowing and marginal spurring. There are fairly significant hypertrophic facet changes at L4-L5 level as well. No fractures are identified. The paraspinous tissues are unremarkable. IMPRESSION: Lower lumbar spondylosis and facet arthropathy with L4-L5 spondylolisthesis. No acute bony abnormality is detected. Dictated by: Dictated on workstation # [id number]
[2021-09-20] MEDS ORDERED: QUET400T PO (13:33)
[2021-09-20] MEDS ORDERED: METH4TAB10 PO (13:33)
[2021-09-20] MEDS ORDERED: KETO10TA PO (13:33)
[2021-09-20 13:37] VITALS: BP 142/90
== END 2021-09-20 13:37 | disposition home or self-care (01) ==
LOC: EDUNIT# 11:37 → ER 11:39
DX: M54.50 Low back pain, unspecified (principal)
CPT/HCPCS: 72128; 72131; 96372

== ENCOUNTER 2021-10-12 18:38 | Emergency (ER) | payer MEDICARE, OTHER ==
[~2021-10-12] VITALS: Ht 175.2 cm; Wt 99.7 kg
[~2021-10-12 18:38] MED LIST changes: +KETO10TA PO; +METH4TAB10 PO
[2021-10-12] MEDS ORDERED: LORazepam 0.5 MG (ATIVAN) TABLET PO STA (18:52)
--- NOTE | 2021-10-12 18:57 | ED Psychosocial ---
General Stated Complaint: WANTS TO KILL HERSELF Source: patient Exam Limitations: no limitations (DEMARCUS BAILEY) History of Present Illness Date Seen by Provider: Oct 12, 2021 Time Seen by Provider: 18:54 Initial Comments Patient is a 66-year-old female presents ED with suicidal ideations. She reports suicidal thoughts over the past month. She states she has been homeless over the past month as well. She states she was condemned from her apartment. She reports thoughts of overdosing with her medication over the past month. She does take Seroquel and Neurontin for her anxiety without much improvement. She reports history of suicidal thoughts in the past. Denies of any drug use or alcohol use, homicidal thoughts. She reports history of chronic low back pain and states today pain has increased. Similar type pain in the past. Denies any chest pain, shortness of breath, nausea, vomiting, diarrhea, fever, chills. No active hallucinations. Patient is tearful on arrival. (DEMARCUS BAILEY) Allergies and Home Medications Allergies Coded Allergies: haloperidol (Unverified Allergy, Intermediate, 04/23/09) alcohol (Unverified Adverse Reaction, Unknown, "FLIP OUT", 09/20/21) Patient Home Medication List Home Medication List Reviewed: Yes (DEMARCUS BAILEY) Hydroxyzine HCl (Hydroxyzine HCl) 25 Mg Tablet, 25 MG PO Q4H PRN for ANXIETY Prescribed by: MASTER GILMORE on 01/25/20 1420 Ketorolac Tromethamine (Ketorolac Tromethamine) 10 Mg Tablet, 10 MG PO Q8H PRN for PAIN-BREAKTHROUGH Prescribed by: ELMER INGRAM on 09/20/21 1333 Methylprednisolone (Methylprednisolone Dose Pack) 4 Mg Tab.ds.pk, 4 MG PO UD Prescribed by: ELMER INGRAM on 09/20/21 1333 Polyethylene Glycol (Miralax Btl) 119 Gm Btl, 0 PO DAILY Prescribed by: GEOVANY TA on 06/16/13 2332 Quetiapine Fumarate (Seroquel) 400 Mg Tablet, 800 MG PO HS, (Reported) Entered as Reported by: PAULINE FAIRBANKS on 05/13/13 0835 Quetiapine Fumarate (Quetiapine Fumarate ER) 400 Mg Tab.er.24h, 800 MG PO HS Prescribed by: MASTER GILMORE on 01/25/20 1322 Quetiapine Fumarate (Seroquel) 400 Mg Tablet, 800 MG PO HS Prescribed by: ELMER INGRAM on 09/20/21 1333 Tramadol Hcl (Tramadol Hcl) 50 Mg Tablet, 50 MG PO Q6H Prescribed by: GEOVANY TA on 06/16/13 2331 Review of Systems Constitutional: No chills, No diaphoresis Respiratory: No cough, No dyspnea on exertion Cardiovascular: No chest pain Gastrointestinal: No abdominal pain, No diarrhea, No nausea, No vomiting Musculoskeletal: back pain; No joint pain Psychiatric/Neurological: Anxiety, Depressed (DEMARCUS BAILEY) Past Oblebvs-Wulysq-Eyfunn Hx Seasonal Allergies Seasonal Allergies: No (DEMARCUS BAILEY) Past Medical History Surgeries: Yes Orthopedic Respiratory: Yes COPD Cardiac: Yes Hypertension Neurological: No SUPERVISING CHEF History: Menopausal Genitourinary: No Gastrointestinal: Yes Obstructive Bowel, Chronic Constipation Musculoskeletal: Yes (RESTLESS LEG) Chronic Back Pain Endocrine: No HEENT: Yes Hearing Impairment: Hard of Hearing Cancer: No Psychosocial: Yes (EXTENSIVE PSYCH ISSUES, POLYSUBSTANCE ABUSE. ) ADD/ADHD, Anxiety, Depression Integumentary: No Blood Disorders: No Adverse Reaction/Blood Tranf: No (DEMARCUS BAILEY) Family Medical History History of drug abuse Psychotic disorder Psychiatric Problems (DEMARCUS BAILEY) Physical Exam Vital Signs - First Documented 10/12/21 10/13/21 18:41 00:49 Temp 36.6 Pulse 94 Resp 22 B/P (MAP) 141/94 (110) Pulse Ox 95 O2 Delivery Room Air (VITA MCDONALD MD) Capillary Refill : (DEMARCUS BAILEY) Height, Weight, BMI Height: 5'8.00" Weight: 170lbs. 0.0oz. 77.816333wa; 29.00 BMI Method:Stated General Appearance: mild distress HEENT: PERRL/EOMI, normal ENT inspection, TMs normal, pharynx normal Neck: non-tender, full range of motion, supple Respiratory: chest non-tender, lungs clear, normal breath sounds, no respiratory distress Cardiovascular: regular rate, rhythm, no edema, no gallop, no JVD Gastrointestinal: normal bowel sounds, non tender, soft, no organomegaly, no pulsatile mass Extremities: normal range of motion, non-tender, normal inspection Neurologic/Psychiatric: shaker flatwork II-XII nml as tested, no motor/sensory deficits, alert, normal mood/affect, oriented x 3 Behavior/Eye Contact: cooperative Thoughts/Hallucinations: normal thought pattern, no apparent hallucination Skin: normal color, warm/dry (DEMARCUS BAILEY) Progress/Results/Core Measures Results/Orders Lab Results Laboratory Tests Test 10/12/21 19:00 10/12/21 19:08 10/13/21 17:37 Range/Units White Blood Count 12.0 H 4.3-11.0 10^3/uL Red Blood Count 4.31 3.80-5.11 10^6/uL Hemoglobin 13.9 11.5-16.0 g/dL Hematocrit 41 35-52 % Mean Corpuscular Volume 94 80-99 fL Mean Corpuscular Hemoglobin 32 25-34 pg Mean Corpuscular Hemoglobin Concent 34 32-36 g/dL Red Cell Distribution Width 14.2 10.0-14.5 % Platelet Count 325 130-400 10^3/uL Mean Platelet Volume 9.2 9.0-12.2 fL Immature Granulocyte % (Auto) 0 % Neutrophils (%) (Auto) 58 42-75 % Lymphocytes (%) (Auto) 32 12-44 % Monocytes (%) (Auto) 7 0-12 % Eosinophils (%) (Auto) 2 0-10 % Basophils (%) (Auto) 1 0-10 % Neutrophils # (Auto) 7.0 1.8-7.8 10^3/uL Lymphocytes # (Auto) 3.8 1.0-4.0 10^3/uL Monocytes # (Auto) 0.9 0.0-1.0 10^3/uL Eosinophils # (Auto) 0.2 0.0-0.3 10^3/uL Basophils # (Auto) 0.1 0.0-0.1 10^3/uL Immature Granulocyte # (Auto) 0.0 0.0-0.1 10^3/uL Sodium Level 139 135-145 MMOL/L Potassium Level 3.7 3.6-5.0 MMOL/L Chloride Level 107 98-107 MMOL/L Carbon Dioxide Level 18 L 21-32 MMOL/L Anion Gap 14 5-14 MMOL/L Blood Urea Nitrogen 15 7-18 MG/DL Creatinine 0.76 0.60-1.30 MG/DL Estimat Glomerular Filtration Rate 87 BUN/Creatinine Ratio 20 Glucose Level 103 70-105 MG/DL Calcium Level 9.3 8.5-10.1 MG/DL Corrected Calcium 9.4 8.5-10.1 MG/DL Total Bilirubin 0.2 0.1-1.0 MG/DL Aspartate Amino Transf (AST/SGOT) 50 H 5-34 U/L Alanine Aminotransferase (ALT/SGPT) 28 0-55 U/L Alkaline Phosphatase 93 40-136 U/L Total Protein 6.5 6.4-8.2 GM/DL Albumin 3.9 3.2-4.5 GM/DL Salicylates Level < 5.0 L 5.0-20.0 MG/DL Acetaminophen Level < 10 L 10-30 UG/ML Serum Alcohol < 10 <10 MG/DL Influenza Type A (RT-PCR) Not Detected Not Detecte Influenza Type B (RT-PCR) Not Detected Not Detecte SARS-CoV-2 RNA (RT-PCR) Not Detected Not Detected Not Detecte Urine Color BRANDI H Urine Clarity SL CLOUDY Urine pH 5.5 5-9 Urine Specific [place] >=1.030 1.016-1.022 Urine Protein TRACE H NEGATIVE Urine Glucose (UA) NEGATIVE NEGATIVE Urine Ketones 1+ H NEGATIVE Urine Nitrite NEGATIVE NEGATIVE Urine Bilirubin 1+ H NEGATIVE Urine Urobilinogen 1.0 < = 1.0 MG/DL Urine Leukocyte Esterase TRACE H NEGATIVE Urine RBC (Auto) NEGATIVE NEGATIVE Urine RBC RARE /HPF Urine WBC 2-5 /HPF Urine Squamous Epithelial Cells 5-10 /HPF Urine Crystals PRESENT H /LPF Urine Calcium Oxalate Crystals FEW H /LPF Urine Bacteria MODERATE H /HPF Urine Casts PRESENT /LPF Urine Hyaline Casts RARE /LPF Urine Mucus MODERATE H /LPF Urine Culture Indicated YES Urine Opiates Screen NEGATIVE NEGATIVE Urine Oxycodone Screen NEGATIVE NEGATIVE Urine Methadone Screen NEGATIVE NEGATIVE Urine Propoxyphene Screen NEGATIVE NEGATIVE Urine Barbiturates Screen NEGATIVE NEGATIVE Ur Tricyclic Antidepressants Screen POSITIVE H NEGATIVE Urine Phencyclidine Screen NEGATIVE NEGATIVE Urine Amphetamines Screen POSITIVE H NEGATIVE Urine Methamphetamines Screen NEGATIVE NEGATIVE Urine Benzodiazepines Screen NEGATIVE NEGATIVE Urine Cocaine Screen NEGATIVE NEGATIVE Urine Cannabinoids Screen POSITIVE H NEGATIVE (VITA MCDONALD MD) Micro Results Microbiology 10/12/21 Urine Culture - Preliminary, Resulted Slight Growth Present (VITA MCDONALD MD) My Orders Orders - VITA MCDONALD MD General/Regular (10/13/21 Breakfast) Lorazepam Tablet (Ativan Tablet) (10/13/21 12:21) Covid 19 Inhouse Test (10/13/21 14:24) Ibuprofen Tablet (Motrin Tablet) (10/13/21 15:00) Gabapentin Capsule/Tablet (Neurontin Cap (10/13/21 15:00) Nicotine Patch (Nicoderm Patch) (10/13/21 15:00) Quetiapine Immediate Release (Seroquel I (10/14/21 06:30) Gabapentin Capsule/Tablet (Neurontin Cap (10/14/21 06:30) (VITA MCDONALD MD) Medications Given in ED Current Medications Medications Dose Ordered Sig/Toshia Route Start Time Stop Time Status Last Admin Dose Admin Gabapentin 200 mg ONCE ONCE PO 10/14/21 06:30 10/14/21 06:31 DC 10/14/21 06:50 200 MG Quetiapine Fumarate 400 mg ONCE ONCE PO 10/14/21 06:30 10/14/21 06:31 DC 10/14/21 06:50 400 MG (VITA MCDONALD MD) Vital Signs/I&O 10/14/21 07:13 Pulse 68 Resp 16 B/P (MAP) 128/79 Pulse Ox 97 O2 Delivery Room Air (VITA MCDONALD MD) Progress Progress Note #1: Time: 19:57 Progress Note I assumed care of this patient at shift change. She has had very little issue throughout the day. She did request medications for pain and was given gabapentin and ibuprofen earlier in the day. She was also given Ativan for anxiety. She is requesting her nighttime Seroquel. She normally takes 800 mg of the extended release once a day. Extended release is not available in the hospital so we will give a 400 mg dose of the immediate release. She will also get her next dose of gabapentin. Placement has been found at the [facility] in [place]. Her bed will not be available until 0600 tomorrow morning. Arrangements have been made for Ximena Waters to pick her up at 0700. Patient has been updated on the plan and is very grateful. She voices no other needs at this time. She is alert, oriented, and in no acute distress. The facility requested a second Covid swab be obtained as they require one within 24 hours of admission. This was ordered. Progress Note #2: Time: 06:42 Progress Note Patient is awake, alert, and oriented this morning. Transport should be here soon. Bed placement was confirmed with the receiving facility. Morning Seroquel and gabapentin has been ordered. Patient has no complaints and expresses no needs. (VITA MCDONALD MD) Departure Communication (PCP) Patient is a 66-year-old female presents ED with suicidal thoughts. Patient is currently homeless. Patient is tearful. She reports lower back pain which is chronic requesting dose of steroid. She has no bowel or urine incontinence or saddle paresthesia. No neurological red flags. History of substance abuse. Patient was agreeable for further psych evaluation. Patient lab work was otherwise unremarkable. Patient is medically cleared and waiting evaluation. (DEMARCUS BAILEY) Impression Primary Impression: Suicidal ideation Disposition: 65 XFER TO PSYCH HOSP/UNIT Condition: Stable Transfer Transfer Reason: Exceeds level of care Time Spoke to Accepting Phy: 14:00 Transfer Progress Notes Transfer accepted via field coordinator to Dr. Claudia Kumar Transfer Time: 07:12 Transfer Facility: [facility] in [place] Method of Transfer: Private Vehicle (Hospital transportation services (Ximena Waters)) (VITA MCDONALD MD) Departure-Patient Inst. Referrals: [facility] (PCP/Family) Primary Care Physician DEMARCUS ABILEY Oct 12, 2021 18:57 VITA MCDONALD MD Oct 13, 2021 20:02
[2021-10-12] MEDS ORDERED: methylPREDNISolone 40 MG/ML (Solu-MEDROL) VIAL IM ONE (19:00)
[2021-10-12 19:09] LABS: BASOPHILS # (AUTO) 0.1 10^3/uL (0.0-0.1); BASOPHILS % (AUTO) 1 % (0-10); EOSINOPHILS # (AUTO) 0.2 10^3/uL (0.0-0.3); EOSINOPHILS % (AUTO) 2 % (0-10); HEMATOCRIT 41 % (35-52); HEMOGLOBIN 13.9 g/dL (11.5-16.0); LYMPHOCYTES # (AUTO) 3.8 10^3/uL (1.0-4.0); LYMPHOCYTES % (AUTO) 32 % (12-44); MEAN CORPUSCULAR HEMOGLOBIN 32 pg (25-34); MEAN CORPUSCULAR HGB CONC 34 g/dL (32-36); MEAN CORPUSCULAR VOLUME 94 fL (80-99); MEAN PLATELET VOLUME 9.2 fL (9.0-12.2); MONOCYTES # (AUTO) 0.9 10^3/uL (0.0-1.0); MONOCYTES % (AUTO) 7 % (0-12); NEUTROPHILS % (AUTO) 58 % (42-75); PLATELET COUNT 325 10^3/uL (130-400)
[2021-10-12] MEDS ORDERED: methylPREDNISolone 40 MG/ML (Solu-MEDROL) VIAL ONE (19:12)
[2021-10-12 19:25] LABS: ALBUMIN 3.9 GM/DL (3.2-4.5); CHLORIDE 107 MMOL/L (98-107); POTASSIUM 3.7 MMOL/L (3.6-5.0); SODIUM 139 MMOL/L (135-145)
[2021-10-12 19:27] LABS: CALCIUM 9.3 MG/DL (8.5-10.1)
[2021-10-12 19:28] LABS: GLUCOSE 103 MG/DL (70-105); TOTAL PROTEIN 6.5 GM/DL (6.4-8.2)
[2021-10-12 19:29] LABS: BILIRUBIN,TOTAL 0.2 MG/DL (0.1-1.0); CARBON DIOXIDE 18 MMOL/L (21-32)
[2021-10-12 19:31] LABS: ALKALINE PHOSPHATASE 93 U/L (40-136); CREATININE SERUM 0.76 MG/DL (0.60-1.30); GFR ESTIMATED 87
[2021-10-12 19:31] LABS: CLARITY,URINE SL CLOUDY; COLOR,URINE AMBER; GLUCOSE, URINE (UA) NEGATIVE (NEGATIVE); KETONES,URINE 1+ (NEGATIVE); LEUKOCYTE ESTERASE ,URINE TRACE (NEGATIVE); NITRITE,URINE NEGATIVE (NEGATIVE); PH,URINE 5.5 (5-9); PROTEIN,URINE TRACE (NEGATIVE)
[2021-10-12 19:33] LABS: BUN/CREATININE RATIO 20
[2021-10-12 19:34] LABS: SALICYLATE < 5.0 MG/DL (5.0-20.0)
[2021-10-12 19:35] LABS: ALANINE AMINOTRANSFERASE 28 U/L (0-55)
[2021-10-12 19:44] LABS: AMPHETAMINE SCREEN, URINE POSITIVE (NEGATIVE); BARBITURATE SCREEN URINE NEGATIVE (NEGATIVE); BENZODIAZEPINES SCREEN URINE NEGATIVE (NEGATIVE); CANNABINOID SCREEN, URINE POSITIVE (NEGATIVE); COCAINE SCREEN URINE NEGATIVE (NEGATIVE); METHADONE STAT NEGATIVE (NEGATIVE); METHAMPHETAMINE SCREEN URINE S NEGATIVE (NEGATIVE); OPIATE SCREEN URINE NEGATIVE (NEGATIVE); OXYCODONE STAT NEGATIVE (NEGATIVE); PROPOXYPHENE STAT NEGATIVE (NEGATIVE); TRICYCLIC ANTIDEPRESSANTS SCRE POSITIVE (NEGATIVE)
[2021-10-12 19:51] LABS: BACTERIA,URINE MODERATE /HPF; BILIRUBIN,URINE 1+ (NEGATIVE); CALCIUM OXALATE CRYSTALS,UR FEW /LPF; HYALINE CASTS, URINE RARE /LPF; RBC,URINE RARE /HPF
[2021-10-12 20:02] LABS: ACETAMINOPHEN < 10 UG/ML (10-30)
[2021-10-13] MEDS ORDERED: GABAPENTIN 300 MG (NEURONTIN) CAP PO ONE ×2 (03:15→15:00)
[2021-10-13] MEDS ORDERED: QUEtiapine 100 MG (SEROquel) TAB IMMEDIATE RELEASE PO ONE (03:15)
[2021-10-13] MEDS ORDERED: LORazepam 0.5 MG (ATIVAN) TABLET PO STA (12:21)
[2021-10-13] MEDS ORDERED: NICOTINE 21 MG (NICODERM) PATCH TD ONE (15:00)
[2021-10-13] MEDS ORDERED: IBUPROFEN TABLET 200 MG TAB PO ONE (15:00)
[2021-10-13] MEDS ORDERED: QUEtiapine 200 MG (SEROquel) TAB IMMEDIATE RELEASE PO STA (23:16)
[2021-10-13] MEDS ORDERED: GABAPENTIN 100 MG (NEURONTIN) CAP PO ONE (23:30)
[2021-10-14] MEDS ORDERED: QUEtiapine 200 MG (SEROquel) TAB IMMEDIATE RELEASE PO ONE (06:30)
[2021-10-14] MEDS ORDERED: GABAPENTIN 100 MG (NEURONTIN) CAP PO ONE (06:30)
[2021-10-14 07:13] VITALS: BP 128/79
== END 2021-10-14 07:12 ==
LOC: EDUNIT# 18:38 → ER 18:41
DX: R45.851 Suicidal ideations (principal); F41.9 Anxiety disorder, unspecified; Z20.822 Contact with and (suspected) exposure to COVID-19
CPT/HCPCS: 80053; 80306; 81000; 85025; 87088; 87636; 93005; 99283; G0480 ×3; 36415; 80320; 80329

== ENCOUNTER 2022-02-18 10:10 | Emergency (ER) | payer MEDICARE ==
[~2022-02-18] VITALS: Ht 175 cm; Wt 86.0 kg
--- NOTE | 2022-02-18 11:26 | ED Fall/Injury ---
General Chief Complaint: Trauma-Non Activation Stated Complaint: DIZZY/RADIATING PAIN IN LFT LEG/BLURRED VISION Nursing Triage Note: See triage note. Source: patient Exam Limitations: no limitations (DEMARCUS BAILEY) History of Present Illness Date Seen by Provider: Feb 18, 2022 Time Seen by Provider: 11:22 Initial Comments Patient is a 66-year-old female who presents ED for evaluation after a fall. She states Monday evening she fell hitting her head on the concrete. Patient states she tripped and fell. She was in an argument with someone at the [facility] regarding cleaning the dishes. She states she was sent to the [facility] because of the argument when she tripped and fell hitting her head. No loss of consciousness. Since then she has been having blurry vision dizziness. Denies loss of consciousness or on blood thinners. She also reports middle lower back pain with sharp shooting pain to bilateral lower extremities. Denies of any bowel or urine incontinence or saddle paresthesia. She does take Neurontin daily for her current neuropathy type pain. Denies fever, cough, shortness of breath, chest pain, Srinivas pain. She does report a headache at this time. Patient did suffer abrasion to her right knee but denies of any specific pain to this location. Location Injury Occurred: [facility] (DEMARCUS BAILEY) Allergies and Home Medications Allergies Coded Allergies: haloperidol (Unverified Allergy, Intermediate, 04/23/09) alcohol (Unverified Adverse Reaction, Unknown, "FLIP OUT", 09/20/21) Patient Home Medication List Home Medication List Reviewed: Yes (DEMARCUS BAILEY) Hydroxyzine HCl (Hydroxyzine HCl) 25 Mg Tablet, 25 MG PO Q4H PRN for ANXIETY Prescribed by: MASTER GILMORE on 01/25/20 1420 Ketorolac Tromethamine (Ketorolac Tromethamine) 10 Mg Tablet, 10 MG PO Q8H PRN for PAIN-BREAKTHROUGH Prescribed by: ELMER INGRAM on 09/20/21 1333 Methylprednisolone (Methylprednisolone Dose Pack) 4 Mg Tab.ds.pk, 4 MG PO UD Prescribed by: ELMER INGRAM on 09/20/21 1333 Polyethylene Glycol (Miralax Btl) 119 Gm Btl, 0 PO DAILY Prescribed by: GEOVANY TA on 06/16/13 2332 Quetiapine Fumarate (Seroquel) 400 Mg Tablet, 800 MG PO HS, (Reported) Entered as Reported by: PAULINE FAIRBANKS on 05/13/13 0835 Quetiapine Fumarate (Quetiapine Fumarate ER) 400 Mg Tab.er.24h, 800 MG PO HS Prescribed by: MASTER GILMORE on 01/25/20 1322 Quetiapine Fumarate (Seroquel) 400 Mg Tablet, 800 MG PO HS Prescribed by: ELMER INGRAM on 09/20/21 1333 Tramadol Hcl (Tramadol Hcl) 50 Mg Tablet, 50 MG PO Q6H Prescribed by: GEOVANY TA on 06/16/13 2331 Review of Systems Review of Systems Constitutional: No chills, No diaphoresis, No malaise, No weakness Eyes: Blurred Vision; Denies Drainage, Denies Decreased Acuity Ears, Nose, Mouth, Throat: denies ear pain Respiratory: No cough, No dyspnea on exertion Cardiovascular: No chest pain Gastrointestinal: No abdominal pain, No diarrhea, No nausea, No vomiting Genitourinary: No decreased output, No discharge Musculoskeletal: back pain, joint pain Skin: No change in color, No change in hair/nails (DEMARCUS BAILEY) All Other Systems Reviewed Negative Unless Noted: Yes (DEMARCUS BAILEY) Past Uphfyjv-Zqaqsp-Oifmtq Hx Patient Social History Tobacco Use?: Yes Tobacco type used: Cigarettes Smoking Status: Current Everyday Smoker Substance use?: Yes Substance type: Marijuana Alcohol Use?: No (DEMARCUS BAILEY) Immunizations Up To Date First/Initial COVID19 Vaccinat: 2020 Second COVID19 Vaccination [place]: 2020 (DEMARCUS BAILEY) Seasonal Allergies Seasonal Allergies: No (DEMARCUS BAILEY) Past Medical History Surgeries: Yes Orthopedic Respiratory: Yes COPD Cardiac: Yes Hypertension Neurological: No 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 ) ADD/ADHD, Anxiety, Depression Integumentary: No Blood Disorders: No Adverse Reaction/Blood Tranf: No (DEMARCUS BAILEY) Family Medical History History of drug abuse Psychotic disorder Psychiatric Problems (DEMARCUS BAILEY) Physical Exam Vital Signs Vital Signs - First Documented 02/18/22 10:58 Temp 37.0 Pulse 95 Resp 18 B/P (MAP) 146/95 (112) Pulse Ox 98 O2 Delivery Room Air (BRUCE,CHRISTAL K DO) Vital Signs Capillary Refill : Less Than 3 Seconds (DEMARCUS BAILEY) Height, Weight, BMI Height: 5'8.00" Weight: 170lbs. 0.0oz. 77.759361ew; 28.00 BMI Method:Stated General Appearance: WD/WN, no apparent distress HEENT: PERRL/EOMI, normal ENT inspection, TMs normal, pharynx normal Neck: non-tender, full range of motion, supple Cardiovascular: regular rate, rhythm, no edema, no gallop, no JVD Respiratory: chest non-tender, lungs clear, normal breath sounds, no respira tory distress, no accessory muscle use Gastrointestinal: normal bowel sounds, non tender, soft, no organomegaly Back: other (Thoracic and lumbar midline tenderness. No swelling or bruising to the thoracic or lumbar paraspinal muscle.) Extremities: other (Patient to right knee with normal active range of motion. Pain with movement bilateral extremities. No hip tenderness. No swelling, bruising to the lower extremities.) Neurologic/Psychiatric: grease maker head II-XII nml as tested, no motor/sensory deficits, alert, normal mood/affect, oriented x 3 (DEMARCUS BAILEY) Patsy Coma Score Best Eye Response: (4) Open Spontaneously Best Verbal Response: (5) Oriented Best Motor Response: (6) Obeys Commands [place] Total: 15 (DEMARCUS BAILEY) Progress/Results/Core Measures Results/Orders Vital Signs/I&O 02/18/22 02/18/22 10:58 13:05 Temp 37.0 35.9 Pulse 95 72 Resp 18 17 B/P (MAP) 146/95 (112) 140/84 Pulse Ox 98 96 O2 Delivery Room Air Room Air (BRUCE,CHRISTAL K DO) Blood Pressure Mean: 112 Departure Communication (PCP) Patient CT scan of the head was negative for acute abnormality. She has no cervical midline tenderness. Pain with to her thoracic and lumbar midline. CT scan was unremarkable. Abrasion right knee but no pain with movement of the right leg. This appears to be more superficial. She is currently on gabapentin. Does have access to pain medication at home. Patient refused anything for pain here. Discussed she may have a concussion with a headache dizziness blurry vision. Recommend resting at home. No neurological red flag findings. Outpatient follow-up with primary care physician for further evaluation. She has no other complaints. Patient with a steady gait here in the ED (DEMARCUS BAILEY) Impression Primary Impression: Lower back pain Additional Impression: Head injury Disposition: HOME, SELF-CARE Condition: Stable Departure-Patient Inst. Decision time for Depature: 12:15 (DEMARCUS BAILEY) Referrals: [facility] (PCP/Family) Primary Care Physician Patient Instructions: Low Back Pain ED ATTENDING PHYSICIAN NOTE: I WAS PHYSICALLY PRESENT ER PHYSICIAN, BUT I WAS NOT INVOLVED IN ANY DECISION MAKING OR ANY CARE OF THIS PATIENT, AND I AM NOT COLLABORATING PHYSICIAN. (CHRISTAL BARRERA DO) DEMARCUS BAILEY Feb 18, 2022 11:25 CHRISTAL BARRERA DO Feb 19, 2022 20:06
--- NOTE | 2022-02-18 12:17 | Diagnostic Imaging Report ---
INDICATION: Fall with dizziness and blurred vision. TECHNIQUE: Multiple contiguous axial images were obtained through the brain without the use of intravenous contrast. Auto Exposure Controls were utilized during the CT exam to meet ALARA standards for radiation dose reduction. There is no prior study for comparison. There are no extraaxial fluid collections. No intracranial hemorrhage. No intracranial mass or mass effect. No midline shift. The ventricles are normal in size and position. There are no focal parenchymal abnormalities in the brain. Calvarial windows are unremarkable. There is fluid in the right sphenoid sinus. IMPRESSION: No acute intracranial abnormality. Fluid in the right sphenoid sinus is noted. Dictated by: Dictated on workstation # [id number]
--- NOTE | 2022-02-18 12:21 | Diagnostic Imaging Report ---
Clinical Indication: Patient is status post fall. Patient has back pain radiating into left leg. Exam: Axial CT scan of the thoracic and lumbar spine performed without IV contrast. Sagittal and coronal reformations were performed. Bone and soft tissue windows were created. Auto Exposure Controls were utilized during the CT exam to meet ALARA standards for radiation dose reduction. Comparison: CT scan of the thoracic and lumbar spine without contrast dated 09/20/2021. Findings: There is no acute thoracic or lumbar fracture or dislocation. Thoracic and lumbar spine have normal alignment. The visualized extrathoracic, and lumbar soft tissue structures are unremarkable. There are mild hypertrophic spurs involving the thoracic spine. There is no significant bony central canal or neural foramen. There is grade 1 anterolisthesis of L4 on L5 with no pars defect. There is severe bilateral facet arthropathy/hypertrophy at the L4-L5 level. There is moderate loss of disk space height at the L4-L5 level with the appearance of the diffuse disk bulge. There is moderate bilateral L4-L5 neural foramen narrowing. There is no significant paraspinal soft tissue abnormality. Neurostimulator electrodes are seen entering the T8-T9 interlaminar region. Electrodes are seen at the T7-T8 level posteriorly. Impression: There is degenerative disease with no acute thoracic spine and lumbar spine fracture or dislocation. Dictated by: Dictated on workstation # [id number]
[2022-02-18 13:05] VITALS: BP 140/84
== END 2022-02-18 13:05 | disposition home or self-care (01) ==
LOC: EDUNIT# 10:10 → ER 10:19
DX: S80.211A Abrasion, right knee, initial encounter (principal); S09.90XA Unspecified injury of head, initial encounter; M54.50 Low back pain, unspecified; M54.6 Pain in thoracic spine; F41.9 Anxiety disorder, unspecified; F17.210 Nicotine dependence, cigarettes, uncomplicated; W01.198A Fall on same level from slipping, tripping and stumbling with subsequent striking against other object, initial encounter
CPT/HCPCS: 70450; 72128; 72131

== ENCOUNTER 2023-05-29 14:47 | Emergency (ER) | payer MEDICARE ==
[~2023-05-29] VITALS: Ht 175 cm; Wt 103.0 kg
--- NOTE | 2023-05-29 14:59 | ED General ---
General Chief Complaint: General Problems/Pain Stated Complaint: DRUG SCREEN Source of Information: Patient Exam Limitations: No Limitations History of Present Illness Date Seen by Provider: May 29, 2023 Time Seen by Provider: 14:43 Initial Comments 68-year-old female presents from an assisted living facility requesting a drug screen. She states she believes that the nurses at her facility are taking her Adderall. She states that it is normally yellow pill and today was an orange pill. She has no other medical concerns. All other systems reviewed and negative except documented per HPI. Voice recognition software was used to help create this chart Allergies and Home Medications Allergies Coded Allergies: haloperidol (Unverified Allergy, Intermediate, 04/23/09) alcohol (Unverified Adverse Reaction, Unknown, "FLIP OUT", 09/20/21) Patient Home Medication List Home Medication List Reviewed: Yes Hydroxyzine HCl (Hydroxyzine HCl) 25 Mg Tablet, 25 MG PO Q4H PRN for ANXIETY Prescribed by: MASTER GILMORE on 01/25/20 1420 Ketorolac Tromethamine (Ketorolac Tromethamine) 10 Mg Tablet, 10 MG PO Q8H PRN for PAIN-BREAKTHROUGH Prescribed by: ELMER INGRAM on 09/20/21 1333 Methylprednisolone (Methylprednisolone Dose Pack) 4 Mg Tab.ds.pk, 4 MG PO UD Prescribed by: ELMER INGRAM on 09/20/21 1333 Polyethylene Glycol (Miralax Btl) 119 Gm Btl, 0 PO DAILY Prescribed by: GEOVANY TA on 06/16/13 2332 Quetiapine Fumarate (Seroquel) 400 Mg Tablet, 800 MG PO HS, (Reported) Entered as Reported by: PAULINE FAIRBANKS on 05/13/13 0835 Quetiapine Fumarate (Quetiapine Fumarate ER) 400 Mg Tab.er.24h, 800 MG PO HS Prescribed by: MASTER GILMORE on 01/25/20 1322 Quetiapine Fumarate (Seroquel) 400 Mg Tablet, 800 MG PO HS Prescribed by: ELMER INGRAM on 09/20/21 1333 Tramadol Hcl (Tramadol Hcl) 50 Mg Tablet, 50 MG PO Q6H Prescribed by: GEOVANY TA on 06/16/13 2331 Review of Systems Review of Systems Constitutional: see HPI Past Yhxoclz-Cgqkcx-Mjhrfg Hx Patient Social History Tobacco Use?: No Use of E-Cig and/or Vaping dev: No Substance use?: No Alcohol Use?: No Immunizations Up To Date First/Initial COVID19 Vaccinat: 2020 Second COVID19 Vaccination Har[place]: 2020 Seasonal Allergies Seasonal Allergies: No Past Medical History Surgeries: Yes Orthopedic Respiratory: Yes COPD Cardiac: Yes Hypertension 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 ) ADD/ADHD, Anxiety, Depression Integumentary: No Blood Disorders: No Adverse Reaction/Blood Tranf: No Family Medical History History of drug abuse Psychotic disorder Psychiatric Problems Physical Exam Vital Signs Capillary Refill : Height, Weight, BMI Height: 5'8.00" Weight: 170lbs. 0.0oz. [id number]; 28.00 BMI Method:Stated General Appearance: No Apparent Distress, WD/WN HEENT: Normal ENT Inspection Respiratory: Chest Non Tender, Lungs Clear, Normal Breath Sounds Cardiovascular: Regular Rate, Rhythm, No Murmur, Normal Peripheral Pulses Neurologic/Psychiatric: Alert, Oriented x3 Progress/Results/Core Measures Suspected Sepsis SIRS Temperature: Pulse: Respiratory Rate: Blood Pressure / Mean: Results/Orders Vital Signs/I&O Capillary Refill : Departure Communication (Admissions) Discussed with patient that our drug screen would not be able to differentiate levels of Adderall, whether she was or was not getting it it would just be a positive or negative for amphetamine. Advised there is no emergent medical need for drug screen at this time. Impression Primary Impression: Encounter for medical screening examination Disposition: 01 HOME, SELF-CARE Condition: Stable Departure-Patient Inst. Referrals: [facility] (PCP/Family) Primary Care Physician Add. Discharge Instructions: As discussed our drug screen will not provide the answers that you are looking for. You may try the health department who may be able to provide a drug screen. Return to the emergency department for any severe concerns. All discharge instructions reviewed with patient and/or family. Voiced understanding. CAREY ESCOBAR DO May 29, 2023 14:59
[2023-05-29 15:04] VITALS: BP 153/88
[2023-05-30] MEDS ORDERED: CEPH500T PO (14:37)
== END 2023-05-29 15:05 | disposition home or self-care (01) ==
LOC: EDUNIT# 14:47 → ER 14:49
DX: Z02.83 Encounter for blood-alcohol and blood-drug test (principal); F90.9 Attention-deficit hyperactivity disorder, unspecified type
CPT/HCPCS: 99281

== ENCOUNTER 2023-05-30 11:26 | Emergency (ER) | payer MEDICARE ==
[2023-05-30] MEDS ORDERED: NS IV 1000 ML 1,000 ML IV SCH (11:45)
[2023-05-30 12:09] LABS: BASOPHILS # (AUTO) 0.1 10^3/uL (0.0-0.1); BASOPHILS % (AUTO) 1 % (0-10); EOSINOPHILS # (AUTO) 0.1 10^3/uL (0.0-0.3); EOSINOPHILS % (AUTO) 1 % (0-10); HEMATOCRIT 39 % (35-52); LYMPHOCYTES # (AUTO) 2.6 10^3/uL (1.0-4.0); LYMPHOCYTES % (AUTO) 27 % (12-44); MEAN CORPUSCULAR HEMOGLOBIN 31 pg (25-34); MEAN CORPUSCULAR HGB CONC 33 g/dL (32-36); MEAN CORPUSCULAR VOLUME 95 fL (80-99); MEAN PLATELET VOLUME 9.1 fL (9.0-12.2); MONOCYTES # (AUTO) 0.6 10^3/uL (0.0-1.0); MONOCYTES % (AUTO) 7 % (0-12); NEUTROPHILS % (AUTO) 65 % (42-75); PLATELET COUNT 343 10^3/uL (130-400); WHITE BLOOD COUNT 9.3 10^3/uL (4.3-11.0)
--- NOTE | 2023-05-30 12:12 | ED Psychosocial ---
General Chief Complaint: Psych/Social Disorder Stated Complaint: PSYCH EVALUATION Source: patient Exam Limitations: no limitations (DEMARCUS BAILEY) History of Present Illness Date Seen by Provider: May 30, 2023 Time Seen by Provider: 12:09 Initial Comments Patient is a 68-year-old female who presents to the ED for hallucinations. She states the voices are telling her to kill herself. Patient denies SI. She is tearful when she hears these voices. She states she has been hearing these voices for several days. She states she has not slept for over 26 days. Fast speech and racing thoughts. Patient is extremely talkative. Patient thinks she is getting Alzheimer's disease. She does report decreased urine output concern for UTI. Not currently on antibiotics. She denies any visual hallucinations. Denies any drug use or alcohol use. She has been vaping. She reports that they recently switched her Adderall which may be contributing to her symptoms. Patient denies headache, current dizziness, chest pain, shortness of breath, Srinivas pain vomiting or diarrhea. (DEMARCUS BAILEY) Allergies and Home Medications Allergies Coded Allergies: haloperidol (Unverified Allergy, Intermediate, 04/23/09) alcohol (Unverified Adverse Reaction, Unknown, "FLIP OUT", 09/20/21) Patient Home Medication List Home Medication List Reviewed: Yes (DEMARCUS BAILEY) Cephalexin (Cephalexin) 500 Mg Tablet, 500 MG PO BID Prescribed by: VICTORIA PINZON on 05/30/23 1437 Hydroxyzine HCl (Hydroxyzine HCl) 25 Mg Tablet, 25 MG PO Q4H PRN for ANXIETY Prescribed by: MASTER GILMORE on 01/25/20 1420 Ketorolac Tromethamine (Ketorolac Tromethamine) 10 Mg Tablet, 10 MG PO Q8H PRN for PAIN-BREAKTHROUGH Prescribed by: ELMER INGRAM on 09/20/21 1333 Methylprednisolone (Methylprednisolone Dose Pack) 4 Mg Tab.ds.pk, 4 MG PO UD Prescribed by: ELMER INGRAM on 09/20/21 1333 Polyethylene Glycol (Miralax Btl) 119 Gm Btl, 0 PO DAILY Prescribed by: GEOVANY TA on 06/16/13 2332 Quetiapine Fumarate (Seroquel) 400 Mg Tablet, 800 MG PO HS, (Reported) Entered as Reported by: PAULINE FAIRBANKS on 05/13/13 0835 Quetiapine Fumarate (Quetiapine Fumarate ER) 400 Mg Tab.er.24h, 800 MG PO HS Prescribed by: MASTER GILMORE on 01/25/20 1322 Quetiapine Fumarate (Seroquel) 400 Mg Tablet, 800 MG PO HS Prescribed by: ELMER INGRAM on 09/20/21 1333 Tramadol Hcl (Tramadol Hcl) 50 Mg Tablet, 50 MG PO Q6H Prescribed by: GEOVANY TA on 06/16/13 2331 Review of Systems Constitutional: No chills, No diaphoresis, No fever, No malaise, No weakness EENTM: No ear pain, No blurred vision, No mouth pain, No mouth swelling, No throat pain, No throat swelling Respiratory: No dyspnea on exertion Cardiovascular: No chest pain Gastrointestinal: No abdominal pain, No diarrhea, No nausea, No vomiting Genitourinary: decreased output, dysuria; No frequency Musculoskeletal: No back pain, No joint pain Skin: No change in hair/nails Psychiatric/Neurological: Anxiety, Other (Anxiety, racing thoughts, auditory hallucinations, suicidal thoughts) (DEMARCUS BAILEY) Past Guezeym-Grbwig-Mpqedf Hx Immunizations Up To Date First/Initial COVID19 Vaccinat: 2020 Second COVID19 Vaccination Harman: 2020 Third COVID19 Vaccination Date: 2020 (DEMARCUS BAILEY) Seasonal Allergies Seasonal Allergies: No (DEMARCUS BAILEY) Past Medical History Surgery/Hospitalization HX: ADHD Surgeries: Yes Orthopedic Respiratory: Yes COPD Cardiac: Yes Hypertension 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 ) ADD/ADHD, Anxiety, Depression Integumentary: No Blood Disorders: No Adverse Reaction/Blood Tranf: No (DEMARCUS BAILEY) Family Medical History History of drug abuse Psychotic disorder Psychiatric Problems (DEMARCUS BAILEY) Physical Exam Vital Signs - First Documented 05/30/23 11:50 Temp 36.9 Pulse 114 Resp 18 B/P (MAP) 117/97 (104) Pulse Ox 97 (VITA MCDONALD MD) Capillary Refill : (DEMARCUS BAILEY) Height, Weight, BMI Height: 5'8.00" Weight: 170lbs. 0.0oz. 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, no motor/sensory deficits, alert, normal mood/affect Behavior/Eye Contact: cooperative Thoughts/Hallucinations: auditory hallucinations, flight of ideas, paranoid Skin: normal color, warm/dry Lymphatic: no adenopathy (DEMARCUS BAILEY) Progress/Results/Core Measures Results/Orders Lab Results Laboratory Tests Test 05/30/23 12:00 05/30/23 12:12 05/30/23 12:15 Range/Units White Blood Count 9.3 4.3-11.0 10^3/uL Red Blood Count 4.15 3.80-5.11 10^6/uL Hemoglobin 13.0 11.5-16.0 g/dL Hematocrit 39 35-52 % Mean Corpuscular Volume 95 80-99 fL Mean Corpuscular Hemoglobin 31 25-34 pg Mean Corpuscular Hemoglobin Concent 33 32-36 g/dL Red Cell Distribution Width 12.6 10.0-14.5 % Platelet Count 343 130-400 10^3/uL Mean Platelet Volume 9.1 9.0-12.2 fL Immature Granulocyte % (Auto) 0 % Neutrophils (%) (Auto) 65 42-75 % Lymphocytes (%) (Auto) 27 12-44 % Monocytes (%) (Auto) 7 0-12 % Eosinophils (%) (Auto) 1 0-10 % Basophils (%) (Auto) 1 0-10 % Neutrophils # (Auto) 6.0 1.8-7.8 10^3/uL Lymphocytes # (Auto) 2.6 1.0-4.0 10^3/uL Monocytes # (Auto) 0.6 0.0-1.0 10^3/uL Eosinophils # (Auto) 0.1 0.0-0.3 10^3/uL Basophils # (Auto) 0.1 0.0-0.1 10^3/uL Immature Granulocyte # (Auto) 0.0 0.0-0.1 10^3/uL Sodium Level 139 135-145 MMOL/L Potassium Level 4.1 3.6-5.0 MMOL/L Chloride Level 106 98-107 MMOL/L Carbon Dioxide Level 19 L 21-32 MMOL/L Anion Gap 14 5-14 MMOL/L Blood Urea Nitrogen 14 7-18 MG/DL Creatinine 1.15 0.60-1.30 MG/DL Estimat Glomerular Filtration Rate 53 BUN/Creatinine Ratio 12 Glucose Level 116 H 70-105 MG/DL Calcium Level 9.6 8.5-10.1 MG/DL Corrected Calcium 9.3 8.5-10.1 MG/DL Total Bilirubin 0.4 0.1-1.0 MG/DL Aspartate Amino Transf (AST/SGOT) 25 5-34 U/L Alanine Aminotransferase (ALT/SGPT) 26 0-55 U/L Alkaline Phosphatase 141 H 40-136 U/L Total Protein 7.6 6.4-8.2 GM/DL Albumin 4.4 3.2-4.5 GM/DL Salicylates Level < 5.0 L 5.0-20.0 MG/DL Acetaminophen Level < 10 L 10-30 UG/ML Serum Alcohol < 10 <10 MG/DL Influenza Type A (RT-PCR) Not Detected Not Detecte Influenza Type B (RT-PCR) Not Detected Not Detecte SARS-CoV-2 RNA (RT-PCR) Not Detected Not Detecte Urine Color YELLOW Urine Clarity SLIGHTLY CLOUDY Urine pH 5.5 5-9 Urine Specific [place] <=1.005 1.016-1.022 Urine Protein NEGATIVE NEGATIVE Urine Glucose (UA) NEGATIVE NEGATIVE Urine Ketones TRACE H NEGATIVE Urine Nitrite NEGATIVE NEGATIVE Urine Bilirubin NEGATIVE NEGATIVE Urine Urobilinogen 0.2 < = 1.0 MG/DL Urine Leukocyte Esterase 2+ H NEGATIVE Urine RBC (Auto) NEGATIVE NEGATIVE Urine RBC RARE /HPF Urine WBC 10-25 H /HPF Urine Squamous Epithelial Cells 2-5 /HPF Urine Renal Epithelial Cells 0-2 /HPF Urine Crystals NONE /LPF Urine Bacteria FEW H /HPF Urine Casts NONE /LPF Urine Mucus NEGATIVE /LPF Urine Culture Indicated YES Urine Opiates Screen NEGATIVE NEGATIVE Urine Oxycodone Screen NEGATIVE NEGATIVE Urine Methadone Screen NEGATIVE NEGATIVE Urine Barbiturates Screen NEGATIVE NEGATIVE Ur Tricyclic Antidepressants Screen POSITIVE H NEGATIVE Urine Phencyclidine Screen NEGATIVE NEGATIVE Urine Amphetamines Screen POSITIVE H NEGATIVE Urine Methamphetamines Screen NEGATIVE NEGATIVE Urine Benzodiazepines Screen NEGATIVE NEGATIVE Urine Cocaine Screen NEGATIVE NEGATIVE Urine Cannabinoids Screen POSITIVE H NEGATIVE (VITA MCDONALD MD) Comment Sinus tachycardia, 109 bpm, QRS duration 82 MS, QTc 388 MS. (DEMARCUS BAILEY) Departure Communication (PCP) Patient is a 68-year-old female who presents to the ED for auditory hallucinations. She states she is hearing voices telling her to hurt herself. She denies of any specific plans or any thoughts of wanting to hurt herself. She denies any homicidal thoughts. Denies any drug use or alcohol use. Reports vaping. Patient with flight of ideas, fast speech appears to be having manic type episode. She denies of any visual hallucinations. History of urinary tract infections with decreased urine output concern for UTI. CBC CMP grossly unremarkable. Urinalysis with leukocytes and white blood cells concerning for UTI. Did give 1 g Rocephin. Drug screen positive for THC. Negative COVID. EKG without evidence of ST elevation or pression. Denies any chest pain or shortness of breath. Patient is low SI risk. Patient was given a dose of Zyprexa after return of her EKG. No evidence of prolonged QT. Improvement of her symptoms. She was resting much better after the medication. More cooperative. She was evaluated by behavioral health at this time safety plan and outpatient follow-up. She agreed with this plan of action. She denies of any suicidal thoughts. Recommend following up with therapist. If any worsening symptoms return back to ED. (DEMARCUS BAILEY) Impression Primary Impression: Manic behavior Disposition: 01 HOME, SELF-CARE Condition: Stable Departure-Patient Inst. Decision time for Depature: 14:23 (DEMARCUS BAILEY) Referrals: [facility] (PCP/Family) Primary Care Physician Patient Instructions: Acute Psychosis (DC) Add. Discharge Instructions: Follow-up with your primary care physician for further evaluation. If any worsening symptoms return back to ED. Continue with your medication All discharge instructions reviewed with patient and/or family. Voiced understanding. Scripts Cephalexin (Cephalexin) 500 Mg Tablet 500 MG PO BID for 7 Days, #14 TAB Prov: DEMARCUS BAILEY 05/30/23 ATTENDING PHYSICIAN NOTE: I was physically present as attending physician in the emergency department during the care of this patient, but I was not directly involved in the decision making or delivery of care for this patient. (VITA MCDONALD MD) DEMARCUS BAILEY May 30, 2023 12:12 VITA MCDONALD MD May 31, 2023 06:07
[2023-05-30 12:15] LABS: CHLORIDE 106 MMOL/L (98-107); POTASSIUM 4.1 MMOL/L (3.6-5.0); SODIUM 139 MMOL/L (135-145)
[2023-05-30 12:16] LABS: ALBUMIN 4.4 GM/DL (3.2-4.5)
[2023-05-30 12:17] LABS: CALCIUM 9.6 MG/DL (8.5-10.1)
[2023-05-30 12:18] LABS: GLUCOSE 116 MG/DL (70-105); TOTAL PROTEIN 7.6 GM/DL (6.4-8.2)
[2023-05-30 12:19] LABS: CARBON DIOXIDE 19 MMOL/L (21-32)
[2023-05-30 12:20] LABS: BILIRUBIN,TOTAL 0.4 MG/DL (0.1-1.0)
[2023-05-30 12:22] LABS: ALKALINE PHOSPHATASE 141 U/L (40-136); CREATININE SERUM 1.15 MG/DL (0.60-1.30); GFR ESTIMATED 53
[2023-05-30 12:23] LABS: BUN/CREATININE RATIO 12
[2023-05-30 12:25] LABS: ALANINE AMINOTRANSFERASE 26 U/L (0-55); SALICYLATE < 5.0 MG/DL (5.0-20.0)
[2023-05-30 12:30] LABS: ACETAMINOPHEN < 10 UG/ML (10-30)
[2023-05-30] MEDS ORDERED: OLANZapine 5 MG ODT TABLET PO ONE (12:30)
[2023-05-30 12:37] LABS: BILIRUBIN,URINE NEGATIVE (NEGATIVE); CLARITY,URINE SLIGHTLY CLOUDY; COLOR,URINE YELLOW; GLUCOSE, URINE (UA) NEGATIVE (NEGATIVE); KETONES,URINE TRACE (NEGATIVE); LEUKOCYTE ESTERASE ,URINE 2+ (NEGATIVE); NITRITE,URINE NEGATIVE (NEGATIVE); PH,URINE 5.5 (5-9); PROTEIN,URINE NEGATIVE (NEGATIVE); RBC,URINE RARE /HPF
[2023-05-30 12:38] LABS: BACTERIA,URINE FEW /HPF; RENAL EPITHELIAL CELLS,URINE 0-2 /HPF
[2023-05-30 12:39] LABS: AMPHETAMINE SCREEN, URINE POSITIVE (NEGATIVE); BARBITURATE SCREEN URINE NEGATIVE (NEGATIVE); CANNABINOID SCREEN, URINE POSITIVE (NEGATIVE); COCAINE SCREEN URINE NEGATIVE (NEGATIVE); OPIATE SCREEN URINE NEGATIVE (NEGATIVE); TRICYCLIC ANTIDEPRESSANTS SCRE POSITIVE (NEGATIVE)
[2023-05-30 12:40] LABS: METHADONE STAT NEGATIVE (NEGATIVE); OXYCODONE STAT NEGATIVE (NEGATIVE)
[2023-05-30] MEDS ORDERED: cefTRIAXone IV/IM 1,000 MG in NS (IVPB) 50 ML 50 ML IV STA (12:43)
[2023-05-30] MEDS ORDERED: CEPH500T PO (14:37)
[2023-05-30 14:41] VITALS: BP 110/88
== END 2023-05-30 14:42 | disposition home or self-care (01) ==
LOC: EDUNIT# 11:26 → ER 11:28
DX: F30.9 Manic episode, unspecified (principal); R00.0 Tachycardia, unspecified
CPT/HCPCS: 80053; 80306; 81000; 85025; 87088; 87636; 93005; 99284; G0480 ×3; 36415; 80320; 80329

== ENCOUNTER 2023-06-01 11:33 | Emergency (ER) | payer MEDICARE ==
[~2023-06-01 11:33] MED LIST changes: +CEPH500T PO
--- NOTE | 2023-06-01 11:58 | ED General ---
General Chief Complaint: Psych/Social Disorder Stated Complaint: MENTAL HEALTH SCREENING Source of Information: Patient Exam Limitations: No Limitations (DEMARCUS BAILEY) History of Present Illness Date Seen by Provider: Jun 01, 2023 Time Seen by Provider: 11:55 Initial Comments Patient is a 68-year-old female with a history of extensive psych issues, substance abuse who presents to the ED from [facility] for evaluation for jeison. Patient states staff at [facility] took away her medications. Recently switched medication from green to red. She states when they were given her this red pill it was causing her to hallucinate. She stopped taking this 2 days ago. Difficulty obtaining history from patient due to her active state. She does appear to be paranoid. She denies of any active hallucinations. She denies s uicidal homicidal thoughts. She was brought to ED by PD. According to staff at [facility] they are having difficult controlling her this morning as she became agitated secondary to this medication mishap. She was seen here yesterday evaluated by behavioral health and sent home with a safety plan. They are wanting placement to psych facility (DEMARCUS BAILEY) Allergies and Home Medications Allergies Coded Allergies: haloperidol (Unverified Allergy, Intermediate, 04/23/09) alcohol (Unverified Adverse Reaction, Unknown, "FLIP OUT", 09/20/21) Patient Home Medication List Home Medication List Reviewed: Yes (DEMARCUS BAILEY) Cephalexin (Cephalexin) 500 Mg Tablet, 500 MG PO BID Prescribed by: VICTORIA PINZON on 05/30/23 1437 Hydroxyzine HCl (Hydroxyzine HCl) 25 Mg Tablet, 25 MG PO Q4H PRN for ANXIETY Prescribed by: MASTER GILMORE on 01/25/20 1420 Ketorolac Tromethamine (Ketorolac Tromethamine) 10 Mg Tablet, 10 MG PO Q8H PRN for PAIN-BREAKTHROUGH Prescribed by: ELMER INGRAM on 09/20/21 1333 Methylprednisolone (Methylprednisolone Dose Pack) 4 Mg Tab.ds.pk, 4 MG PO UD Prescribed by: ELMER INGRAM on 09/20/21 1333 Polyethylene Glycol (Miralax Btl) 119 Gm Btl, 0 PO DAILY Prescribed by: GEOVANY TA on 06/16/13 2332 Quetiapine Fumarate (Seroquel) 400 Mg Tablet, 800 MG PO HS, (Reported) Entered as Reported by: PAULINE FAIRBANKS on 05/13/13 0835 Quetiapine Fumarate (Quetiapine Fumarate ER) 400 Mg Tab.er.24h, 800 MG PO HS Prescribed by: MASTER GILMORE on 01/25/20 1322 Quetiapine Fumarate (Seroquel) 400 Mg Tablet, 800 MG PO HS Prescribed by: ELMER INGRAM on 09/20/21 1333 Tramadol Hcl (Tramadol Hcl) 50 Mg Tablet, 50 MG PO Q6H Prescribed by: GEOVANY TA on 06/16/13 2331 Review of Systems Review of Systems Constitutional: No chills, No diaphoresis, No malaise, No weakness EENTM: No ear pain, No blurred vision, No double vision Respiratory: No cough, No dyspnea on exertion Cardiovascular: No chest pain Gastrointestinal: No abdominal pain, No diarrhea, No nausea, No vomiting Genitourinary: No decreased output, No discharge Musculoskeletal: No back pain, No joint pain Skin: No change in color, No change in hair/nails Psychiatric/Neurological: Anxiety, Other (Paranoia, manic) (DEMARCUS BAILEY) All Other Systems Reviewed Negative Unless Noted: Yes (DEMARCUS BAILEY) Past Xvgklcv-[id number]-Tmsflj Hx Immunizations Up To Date First/Initial COVID19 Vaccinat: 2020 Second COVID19 Vaccination [place]: 2020 Third COVID19 Vaccination Date: 2020 (DEMARCUS BAILEY) Seasonal Allergies Seasonal Allergies: No (DEMARCUS BAILEY) Past Medical History Surgery/Hospitalization HX: ADHD, MANIC DEPRESSIVE, BACK SURG Surgeries: Yes Orthopedic Respiratory: Yes COPD Cardiac: Yes Hypertension Neurological: No [employer] 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 ) ADD/ADHD, Anxiety, Depression Integumentary: No Blood Disorders: No Adverse Reaction/Blood Tranf: No (DEMARCUS BAILEY) Family Medical History History of drug abuse Psychotic disorder Psychiatric Problems (DEMARCUS BAILEY) Physical Exam Vital Signs Vital Signs - First Documented 06/01/23 11:40 Temp 36.6 Pulse 109 Resp 18 Pulse Ox 97 (VITA MCDONALD MD) Vital Signs Capillary Refill : (DEMARCUS BAILEY) Height, Weight, BMI Height: 5'8.00" Weight: 170lbs. 0.0oz. [id number]; BMI Method:Stated General Appearance: No Apparent Distress, WD/WN Eyes: Bilateral Eye Normal Inspection, Bilateral Eye PERRL, Bilateral Eye EOMI HEENT: PERRL/EOMI, TMs Normal, Normal ENT Inspection, Pharynx Normal Neck: Full Range of Motion, Normal Inspection, Non Tender Respiratory: Chest Non Tender, Lungs Clear, Normal Breath Sounds, No Accessory Muscle Use, No Respiratory Distress Cardiovascular: Regular Rate, Rhythm, No Edema, No Gallop, No JVD, No Murmur Gastrointestinal: Normal Bowel Sounds, No Organomegaly, No Pulsatile Mass, Non Tender Back: Normal Inspection, No CVA Tenderness Extremity: Normal Capillary Refill, Normal Inspection, Normal Range of Motion, Non Tender Neurologic/Psychiatric: Alert, Oriented x3, No Motor/Sensory Deficits, Normal Mood/Affect, 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 trailer II-XII Norm as Tested Skin: Normal Color, Warm/Dry (DEMARCUS BAILEY) Progress/Results/Core Measures Suspected Sepsis SIRS Temperature: Pulse: Respiratory Rate: Laboratory Tests 06/01/23 12:00: White Blood Count 6.2 Blood Pressure / Mean: Laboratory Tests 06/01/23 12:00: Creatinine 0.94, Platelet Count 315, Total Bilirubin 0.3 (DEMARCUS BAILEY) Results/Orders Lab Results Laboratory Tests Test 06/01/23 12:00 06/01/23 12:05 06/01/23 12:17 Range/Units White Blood Count 6.2 4.3-11.0 10^3/uL Red Blood Count 3.82 3.80-5.11 10^6/uL Hemoglobin 12.0 11.5-16.0 g/dL Hematocrit 36 35-52 % Mean Corpuscular Volume 94 80-99 fL Mean Corpuscular Hemoglobin 31 25-34 pg Mean Corpuscular Hemoglobin Concent 33 32-36 g/dL Red Cell Distribution Width 12.8 10.0-14.5 % Platelet Count 315 130-400 10^3/uL Mean Platelet Volume 9.1 9.0-12.2 fL Immature Granulocyte % (Auto) 0 % Neutrophils (%) (Auto) 63 42-75 % Lymphocytes (%) (Auto) 29 12-44 % Monocytes (%) (Auto) 7 0-12 % Eosinophils (%) (Auto) 1 0-10 % Basophils (%) (Auto) 1 0-10 % Neutrophils # (Auto) 3.9 1.8-7.8 10^3/uL Lymphocytes # (Auto) 1.8 1.0-4.0 10^3/uL Monocytes # (Auto) 0.4 0.0-1.0 10^3/uL Eosinophils # (Auto) 0.0 0.0-0.3 10^3/uL Basophils # (Auto) 0.1 0.0-0.1 10^3/uL Immature Granulocyte # (Auto) 0.0 0.0-0.1 10^3/uL Sodium Level 138 135-145 MMOL/L Potassium Level 3.9 3.6-5.0 MMOL/L Chloride Level 110 H 98-107 MMOL/L Carbon Dioxide Level 20 L 21-32 MMOL/L Anion Gap 8 5-14 MMOL/L Blood Urea Nitrogen 12 7-18 MG/DL Creatinine 0.94 0.60-1.30 MG/DL Estimat Glomerular Filtration Rate 67 BUN/Creatinine Ratio 13 Glucose Level 122 H 70-105 MG/DL Calcium Level 9.1 8.5-10.1 MG/DL Corrected Calcium 8.9 8.5-10.1 MG/DL Total Bilirubin 0.3 0.1-1.0 MG/DL Aspartate Amino Transf (AST/SGOT) 23 5-34 U/L Alanine Aminotransferase (ALT/SGPT) 25 0-55 U/L Alkaline Phosphatase 121 40-136 U/L Total Protein 7.1 6.4-8.2 GM/DL Albumin 4.2 3.2-4.5 GM/DL Salicylates Level < 5.0 L 5.0-20.0 MG/DL Acetaminophen Level < 10 L 10-30 UG/ML Serum Alcohol < 10 <10 MG/DL Influenza Type A (RT-PCR) Not Detected Not Detecte Influenza Type B (RT-PCR) Not Detected Not Detecte SARS-CoV-2 RNA (RT-PCR) Not Detected Not Detecte Urine Color YELLOW Urine Clarity CLEAR Urine pH 5.5 5-9 Urine Specific [place] >=1.030 1.016-1.022 Urine Protein TRACE H NEGATIVE Urine Glucose (UA) NEGATIVE NEGATIVE Urine Ketones NEGATIVE NEGATIVE Urine Nitrite NEGATIVE NEGATIVE Urine Bilirubin NEGATIVE NEGATIVE Urine Urobilinogen 0.2 < = 1.0 MG/DL Urine Leukocyte Esterase 1+ H NEGATIVE Urine RBC (Auto) NEGATIVE NEGATIVE Urine RBC NONE /HPF Urine WBC 5-10 H /HPF Urine Squamous Epithelial Cells 5-10 /HPF Urine Renal Epithelial Cells RARE /HPF Urine Crystals NONE /LPF Urine Bacteria FEW H /HPF Urine Casts NONE /LPF Urine Mucus SMALL H /LPF Urine Culture Indicated YES Urine Opiates Screen NEGATIVE NEGATIVE Urine Oxycodone Screen NEGATIVE NEGATIVE Urine Methadone Screen NEGATIVE NEGATIVE Urine Barbiturates Screen NEGATIVE NEGATIVE Ur Tricyclic Antidepressants Screen POSITIVE H NEGATIVE Urine Phencyclidine Screen NEGATIVE NEGATIVE Urine Amphetamines Screen POSITIVE H NEGATIVE Urine Methamphetamines Screen NEGATIVE NEGATIVE Urine Benzodiazepines Screen NEGATIVE NEGATIVE Urine Cocaine Screen NEGATIVE NEGATIVE Urine Cannabinoids Screen POSITIVE H NEGATIVE (VITA MCDONALD MD) Vital Signs/I&O 06/01/23 11:40 Temp 36.6 Pulse 109 Resp 18 B/P (MAP) Pulse Ox 97 (VITA MCDONALD MD) Vital Signs/I&O Capillary Refill : (DEMARCUS BAILEY) Departure Communication (PCP) Patient with a extensive psych history who presents to ED for agitation. Patient is a resident at [facility]. She became agitated this morning secondary to staff taking her medication and given her a different medication that she normally does not take. Patient is paranoid about this red pill that was or was not given to her. She does have fast speech. She is loud. Slightly manic and paranoia. she is cooperative. Redirectable. She states she did have hallucinations 2 days ago but that improved when she stopped taking the "medication". She has no active hallucinations, suicidal , or homicidal thoughts. She was seen here yesterday evaluated by behavioral health discharged with a safety plan . She does have a therapist. Psych workup was initiated. She did found to have a UTI yesterday was discharged with Keflex. Urinalysis shows improvement. Vital signs stable. Lab work grossly unremarkable. EKG without any abnormality, A-fib, a flutter, ST elevation or depression. Drug screen positive for THC, amphetamine. She does take Adderall. Did give her a dose of Zyprexa 5 mg here which she did receive yesterday which noted improvement. I would suggest starting this at home as needed. Patient does not want to stay any longer. She wants to go back home. Did call behavioral health to get evaluation but patient was not wanting inpatient and/or evaluation. I did discuss with patient that this would likely benefit her. She did not want to proceed. Cannot hold patient against her will but did provide my recommendations. She does not want to stay any longer. She is cooperative with staff here. She is able to make her own medical decisions at this time. Patient with a steady gait. Patient will be transferred back to [facility]. she shows no signs of harm to herself or others. (DEMARCUS BAILEY) Impression Primary Impression: Paranoia Disposition: 01 HOME, SELF-CARE Condition: Stable Departure-Patient Inst. Decision time for Depature: 14:49 (DEMARCUS BAILEY) Referrals: JAJA HALE (PCP/Family) Primary Care Physician ATTENDING PHYSICIAN NOTE: I was physically present as attending physician in the emergency department during the care of this patient, but I was not directly involved in the decision making or delivery of care for this patient. (VITA MCDONALD MD) DEMARCUS BAILEY Jun 01, 2023 11:58 VITA MCDONALD MD Jun 02, 2023 09:29
[2023-06-01 12:08] LABS: BASOPHILS # (AUTO) 0.1 10^3/uL (0.0-0.1); BASOPHILS % (AUTO) 1 % (0-10); EOSINOPHILS % (AUTO) 1 % (0-10); HEMATOCRIT 36 % (35-52); LYMPHOCYTES # (AUTO) 1.8 10^3/uL (1.0-4.0); LYMPHOCYTES % (AUTO) 29 % (12-44); MEAN CORPUSCULAR HEMOGLOBIN 31 pg (25-34); MEAN CORPUSCULAR HGB CONC 33 g/dL (32-36); MEAN CORPUSCULAR VOLUME 94 fL (80-99); MEAN PLATELET VOLUME 9.1 fL (9.0-12.2); MONOCYTES # (AUTO) 0.4 10^3/uL (0.0-1.0); MONOCYTES % (AUTO) 7 % (0-12); NEUTROPHILS # (AUTO) 3.9 10^3/uL (1.8-7.8); NEUTROPHILS % (AUTO) 63 % (42-75); PLATELET COUNT 315 10^3/uL (130-400); WHITE BLOOD COUNT 6.2 10^3/uL (4.3-11.0)
[2023-06-01] MEDS ORDERED: OLANZapine 5 MG ODT TABLET PO ONE (12:15)
[2023-06-01 12:19] LABS: CHLORIDE 110 MMOL/L (98-107)
[2023-06-01 12:20] LABS: ALBUMIN 4.2 GM/DL (3.2-4.5); POTASSIUM 3.9 MMOL/L (3.6-5.0); SODIUM 138 MMOL/L (135-145)
[2023-06-01 12:21] LABS: CALCIUM 9.1 MG/DL (8.5-10.1)
[2023-06-01 12:22] LABS: GLUCOSE 122 MG/DL (70-105); TOTAL PROTEIN 7.1 GM/DL (6.4-8.2)
[2023-06-01 12:23] LABS: CARBON DIOXIDE 20 MMOL/L (21-32)
[2023-06-01 12:24] LABS: BILIRUBIN,TOTAL 0.3 MG/DL (0.1-1.0)
[2023-06-01 12:26] LABS: ALKALINE PHOSPHATASE 121 U/L (40-136); CREATININE SERUM 0.94 MG/DL (0.60-1.30); GFR ESTIMATED 67
[2023-06-01 12:27] LABS: BUN/CREATININE RATIO 13
[2023-06-01 12:29] LABS: ALANINE AMINOTRANSFERASE 25 U/L (0-55); SALICYLATE < 5.0 MG/DL (5.0-20.0)
[2023-06-01 12:31] LABS: ACETAMINOPHEN < 10 UG/ML (10-30)
[2023-06-01 12:39] LABS: AMPHETAMINE SCREEN, URINE POSITIVE (NEGATIVE); BARBITURATE SCREEN URINE NEGATIVE (NEGATIVE); CANNABINOID SCREEN, URINE POSITIVE (NEGATIVE); COCAINE SCREEN URINE NEGATIVE (NEGATIVE); METHADONE STAT NEGATIVE (NEGATIVE); OPIATE SCREEN URINE NEGATIVE (NEGATIVE); OXYCODONE STAT NEGATIVE (NEGATIVE); TRICYCLIC ANTIDEPRESSANTS SCRE POSITIVE (NEGATIVE)
[2023-06-01 12:43] LABS: BILIRUBIN,URINE NEGATIVE (NEGATIVE); CLARITY,URINE CLEAR; COLOR,URINE YELLOW; GLUCOSE, URINE (UA) NEGATIVE (NEGATIVE); KETONES,URINE NEGATIVE (NEGATIVE); LEUKOCYTE ESTERASE ,URINE 1+ (NEGATIVE); NITRITE,URINE NEGATIVE (NEGATIVE); PH,URINE 5.5 (5-9); PROTEIN,URINE TRACE (NEGATIVE)
[2023-06-01 12:44] LABS: BACTERIA,URINE FEW /HPF; RENAL EPITHELIAL CELLS,URINE RARE /HPF
[2023-06-01] MEDS ORDERED: KETOROLAC INJ 30 MG/ML VIAL IM ONE (12:45)
== END 2023-06-01 13:34 ==
LOC: EDUNIT# 11:33 → ER 11:34
DX: F22 Delusional disorders (principal)
CPT/HCPCS: 80053; 80306; 81000; 85025; 87088; 87636; 93005; 99283; G0480 ×3; 36415; 80320; 80329